=== PATIENT | female | born 1990 | race Caucasian/White ===

== ENCOUNTER 2020-01-18 15:19 | Emergency (ER) | payer MEDICAID, OTHER ==
--- OUTSIDE RECORDS SUMMARY | 2020-01-18 15:28 | XMS REPORT ---
Author Author [facility] Medic al Staff, TOMY Rashid Organization [facility] Address [address], [place] [address] Phone [phone] Care Team Providers Care Log Sorting Supervisor Name Role Phone ROCHELLE YORK, LENARD PP [phone] Summary purpose TRANSITION OF CARE AUTO GENERATION Chief Complaint and Reason for Visit Admit Diagnosis 1 WOUND INFECTION Problem list No authorized problems tracked for continuity of care are available for this vis it. Encounters No authorized problems tracked for encounter diagnoses are available for this vi sit. Medications No medications recorded for this patient visit Allergies, adverse reactions, alerts Allergen Category Ingredient Status Reaction Severity Onset Latex Drug Allergy Latex Confirmed or Verified Latex Environmental Allergy LATEX Confirmed or Verified azithromycin Drug Allergy azithromycin Confirmed or Verified itching azithromycin Drug Allergy azithromycin Confirmed or Verified redmess Bactrim Drug Allergy Bactrim Confirmed or Verified Shortness of Br eath Moderate Adult Bactrim Drug Allergy sulfamethoxazole Confirmed or Verified Shortn ess of Breath Moderate Adult Bactrim Drug Allergy trimethoprim Confirmed or Verified Shortness of Breath Moderate Adult Toradol Drug Allergy Toradol Confirmed or Verified Toradol Drug Allergy ketorolac Confirmed or Verified vancomycin Drug Allergy vancomycin Confirmed or Verified Hives Mod erate Adult Immunizations No immunizations recorded for this patient visit Relevant diagnostic tests and/or laboratory data No authorized results are available for this patient visit History of procedures No procedures recorded for this patient visit. Functional status Functional Status Finding Observation Time Hearing Prob Loc none :15 Vision Problems yes :15 Vision Correct Dev glasses :15 Ambulation Asst Dev none :15 Bathing Assistance none :15 Eating Assistance none :15 Dressing Assistance none :15 Toileting Assistance none :15 Transfer Assistance none :15 Decline Slf Care/Mob no :15 Phys Cond Stable yes :15 Oxygen no :09 Oxygen Flow Rate RA :09 IV Site Location Left wrist :34 IV Type peripheral :34 IV Site Information existing : IV Site Start Attmpt 3 times :55 IV Site Isael 20 :34 IV Site Appearance WNL : IV Site Color clear :34 IV Site Patent yes :34 Dressing Changed yes :55 Dressing Type occlusive :34 Nursing Note iv abxcompleted. pt amb off unit in good condition. sl left in place as pt has f/u with PCP in am Comment: This result is a modification to a previously-entered result. It was modified on 09/19/15 at 14:15 by ERMA. 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 ( Unknown if ever smoked.) Treatment Plan No treatment plan text is available for this visit. Hospital discharge instructions Valuables yes Valuable Type billfold/purse PNE Vac never Flu Vac 04/2015 Tetanus Vac 06/2013
--- OUTSIDE RECORDS SUMMARY | 2020-01-18 15:28 | XMS REPORT ---
Author Author [facility] Medic al Staff, TOMY Rashid Organization [facility] Address [address], [place] [address] Phone [phone] Care Team Providers Care Funeral Attendant Name Role Phone LYNSEY YORK, SILVANA PP [phone] Summary purpose TRANSITION OF CARE AUTO GENERATION Chief Complaint and Reason for Visit No authorized Reason for Visit (Admitting Diagnosis) is available for this visit . Problem list No authorized problems tracked for [...] or Verified vancomycin Drug Allergy vancomycin Confirmed but Inactive Hives Mo derate Adult tramadol Drug Allergy tramadol Confirmed or Verified Immunizations No immunizations recorded for this patient visit Relevant diagnostic tests and/or laboratory data RESULTS Chemistry [id number]:00 Result Normal Range Units Sodium 137 134-145 mEq/l Potassium 4.0 3.5-5.1 mEq/l Chloride 103 98-107 mEq/l CO2 23.2 22-28 mEq/l Glucose 93 70-105 mg/dl BUN 7 7-18 mg/dl Creatinine L 0.56 0.6-1.0 mg/dl Calcium 9.0 8.4-10.2 mg/dl Osmolality L 271.5 280-300 mOsm/L Anion GAP 10.8 8-16 BUN/Creatinine Ratio 12.5 10-20 Estimated GFR 132 >= 60 mL/min /1.7 Hematology :01:00 Result Normal Range Units WBC H 15.2 4.8-10.8 103/uL RBC H 5.5 4.2-5.4 106/uL HGB 15.9 12.0-16.0 g/dl HCT 46.5 36.9-47.0 % MCV 84.7 81-99 FL MCH 29.0 27-31 pg MCHC 34.2 33-37 g/dl RDW 12.8 11.5-15.5 % PLT 315 130-400 103/uL MPV 9.3 7.3-10.4 FL Neutro % H 76.3 40-70 % Lymph % L 17.2 20-40 % Rap[place] % 5.0 0-10.0 % Eos % 0.8 0-7.0 % Baso % 0.3 0-2 % Neutro # H 11.6 1.5-7.5 103/uL Lymph # 2.6 0.9-4.0 103/uL [place] # 0.8 0-0.8 103/uL Eos # 0.1 0-0.6 103/uL Baso # 0.1 0-0.1 103/uL Radiology Results :01:00 Result Normal Range Units MPV 9.3 7.3-10.4 FL History of procedures No procedures recorded for this patient visit. Functional status Functional Status Finding Observation Time Abdomen Appearance obese :25 Abdomen soft :25 Ramírez no :25 Urination normal :25 Quality sym/unlabored :25 Cough absent :25 Secretions no :25 Airway natural :25 Chest Tube no :25 Oxygen no :00 Temp >100.4 no :25 Temp <96.8 no :25 Chills with rigors no :25 HR > 90bpm yes :25 Respirations > 20 no :25 Systolic <90 no :25 headache stiff neck no :25 IV Site Location R AC :05 IV Type peripheral :05 IV Site Information new :05 IV Site Start Attmpt 1 times :05 IV Site Isael 20 :05 IV Site Appearance WNL :05 IV Site Color clear :05 IV Site Patent yes :05 Dressing Type occlusive :05 Nursing Note pt dc'd to home at this time in good condition and with all known belongings. pt exited ambulatory in care of sig other with rx in hand for oxycodone. outpt infusion orders given to OBS RN. : Vital signs Type Value Date Respiration Rate 20breaths per minute : 00 Pulse 103beats per minute :0 0 Oxygen Saturation 98% :00 BP Systolic 134mmHg :00 BP Diastolic 93mmHg :00 Temperature 98.1F :00 Social history Type Value Smoking Status CURRENT EVERY DAY SMOKER Treatment Plan No treatment plan text is available for this visit. Hospital discharge instructions Dismissal Condition good Disposition on DC home DC Inst/Educ Give yes Med/Side Effects Rev yes PNE Vac none Flu Vac 2014 Tetanus Vac 2012
--- OUTSIDE RECORDS SUMMARY | 2020-01-18 15:28 | XMS REPORT ---
Author Author [facility] Medic al Staff, TOMY Rashid Organization [facility] Address [address], [place] [address] Phone [phone] Care Team Providers Care Solar Manager Name Role Phone ROCHELLE YORK, LENARD PP [phone] LENARD BYRD MD, PP [phone] Summary purpose TRANSITION OF CARE AUTO GENERATION Chief Complaint and Reason for Visit Admit Diagnosis 1 WOUND INF Problem list No authorized problems tracked for continuity of care are available for this vis it. Encounters The following conditions tracked for encounter diagnoses were recorded for this visit: Finding or Diagnosis Status Certainty Chronicity Onset *WOUND; infection Active Medications No medications recorded for this patient [...] Relevant diagnostic tests and/or laboratory data RESULTS [id number]:00 Discharge Summary DISCHARGE SUMMARY HISTORY OF PRESENT ILLNESS:This 25-y ear-old female was in from the clinic with wound dehiscence following e xcision of cutaneous abscesses. The patient relates she has been having increasing pain at the incision sites. PHYSICAL EXAMINATION: GENERAL: Well-deve loped, well-nourished. VITAL SIGNS: Temperature 97.8, blood pressure 130/82, pulse 80 and oxygen saturation is 98% on room air. HEENT: Clear. LUNGS: Clear. HEART: Normal sinus rhythm . ABDOMEN: Soft and nontender. EXTREMITIES: Without edema. SKIN: Examin ation of the skin reveals bilateral proximal medial anterior thigh s which have dehisced. The areas are quite tender; no cellulitis. Incisio ns in the lower quadrants bilaterally under the pannus reveal the stitches are intact. There is mild erythema of the skin margins. No dr ainagraeme. The areas are quite tender. The anterior sternal area betwee n the breasts with surgical incision with sutures intact and no drai nage. There is significant tenderness noted without cellulitis. Ove r the sacral area, there is ulceration from previous pilonidal cyst removal. The area is tender with no drainage. 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 These areas were tender. No drainage. LABORATORY/X-RAY/ELECTROCARDIOGRAM DATA: A complete blood count on admission showed white count 10,100, hem oglobin 14.6. Followup complete blood count on the was unchanged. Chemistries on admission were normal except potassium was a little low at 3.4. Hemoglobin A1c was 5.0. On the , potassium had normalized to 3.8. Wound culture of the right anterior thigh which was performed in [facility] showed methicillin resistant Staphylococcus aureus. Wound c ulture from the pilonidal ulceration showed strep agalactiae and c ulture of the right posterior thigh showed a large amount of Staphyloc occus aureus; not methicillin resistant Staphylococcus aureus. Urinaly sis was clear. HOSPITAL COURSE: Following admission, [facility] patient was started on intravenous vancomycin. Approximately 15 minutes into the infusion, she developed a redness and urticaria and th e infusion was stopped. She was given Benadryl. The infusion was tried a gain the following morning with the same results after 5 minutes and onc e again the infusion was discontinued. Based upon culture results , since there is no evidence of significant cellulitis or deep infection noted, it was elected to continue the patient as an outpatient on intravenous Rocephin and with aggressive wound care and topical gentam icin ointment. FOLLOWUP: The patient will be seen in [facility] clinic in followup in 4 days, sooner if symptoms should change. DISCHARGE MEDICATIONS: She will be shashank nued on diclofenac 50 mg 3 times daily, gemfibrozil 600 mg 2 times daily, lidocaine topically as needed every 4 hours, and oxycodone 10 mg every 4 hours as needed for pain. DISCHARGE DIAGNOSES: Status post excisio n of cutaneous abscesses with secondary infection and wound dehiscence. MD JANAK Bonds/cdj09/21/2015 09:18:00/2015 18:23:46 Clinic [facility]: [facility] [address] [place] [id number] <END HEADER> [id number]:00 Progress Note PROGRESS NOTE 09/15/2015 09:46:43 DATE OF SERVICE: 09/14/15 S: Patient is doing a little better today. The pain seems to be a little bit better controlled with her pa in medications. Patient did develop itching and rash about 15 minute s after starting vancomycin infusion last night. Vancomycin was disc ontinued. She had been taking pain medication prior to this and seemed to tolerate that well. She has had vancomycin in the past with no docum ented reaction. The patient has had no recurrence of the rash overnight, itching has resolved. O: VITAL SIGNS: She is afebrile as o f 3:00. Temperature is 98.8, pulse 83, blood pressure 117/60, respirations 18, oxygen saturation 96% on room air. LUNGS: Clear. HEART: Normal si nus rhythm. Wounds appear unchanged this morning. LABORATORY: CBC on admission showed white count 10,100, hemoglobin 14.8. Differential sh owed 75 segs, 2 bands, 21 lymphs and 2 monos. Chemistries showed electrol ytes to be normal, except potassium was a little low at 3.4, estim ated GFR 129. Hemoglobin A1c 5.0. Wound culture from the clinic prior to admission of the right anterior thigh showing staph aureus, on preliminary report posterior thigh and abdominal cultures done here a re showing no growth this morning. A: Wound infection. P: Going to continue with IV Rocephi n and pain relief measures pending further identification of the staph flavio us. I have debated about whether to start IV clindamycin or try vancomyci n again. However, I think I am going to wait until we have sensitivitie s back. Those should be available tomorrow to give us some yury nce about antibiotic choices. MD JANAK Bonds/tx 09/15/2015 09:46:43/2015 14:28:14 [facility]: [facility] [address] [place] [address]<END HEADER> Routine Urinalysis [id number]:10:00 Result Normal Range Units Color YELLOW Clarity Clear Specific [place] 1.020 1.003-1.035 pH 6.5 4.5-8.0 Glucose NEGATIVE Bilirubin NEGATIVE Ketones NEGATIVE Protein NEGATIVE Urobilinogen 0.2 0-0.2 E.U./dL Nitrites NEGATIVE Blood NEGATIVE Leukocytes NEGATIVE WBCs No WBC's Seen RBCs 0-5 Squamous Epithelial Few Bacteria 1+ Routine Cultures [id number]:10:00 Wound Culture Plate Date and Time 09/13/2015 23:10 Source [facility] CULTURE REPORT Moderate Amount Group-B Strep. Sensitivity to follow Release Date/Time: 0 09/15/2015 08:16 GRAM STAIN 2+ Gram Positive Cocci Occasional Gram Variable Rods Release Date/Time: 0 09/14/2015 07:46 ORGID #1: Moderate Amount STREPTOCOCCUS AGALACTIAE - (GROUP B) Release Date/Time: 0 09/16/2015 08:19 Sensitivity #1: STRAGA AMPICILLIN 0.12S AZITHROMYCIN > 2 R CEFTRIAXONE <= 0.25 S CLINDAMYCIN > 0.5 R CEFOTAXIME <= 0.25 S CEFEPIME <= 0.25 S LEVOFLOXACIN 1 S PENICILLIN 0.06S TETRACYCLINE > 4 R VANCOMYCIN 0.5 S Wound Culture Plate Date and Time 09/13/2015 23:10 Source[facility] CULTURE REPORT Large Amount Staphylococcus Aureus. Sensitivity to follow Release Date/Time: 0 09/15/2015 07:08 GRAM STAIN Occasional Gram Positive Cocci Release Date/Time: 0 09/14/2015 07:47 ORGID #1: Large Amount STAPHYLOCOCCUS AUREUS Release Date/Time: 0 09/16/2015 07:24 Sensitivity #1: STAAUR AMPICILLIN > 8 R AMOX CLAV <=4/2 S CLINDAMYCIN <= 0.5R CEFAZOLIN <= 4S CIPROFLOXACIN <= 1S DAPTOMYCIN 1 S GENTAMICIN <= 4S AMPICILLIN SULBACTAM <=8 /4 S LEVOFLOXACIN <= 1S LINEZOLID 4 S MOXIFLOXACIN <= 0.5S OXACILLIN 0.5 S PENICILLIN > 8 R RIFAMPIN <= 1S TRIMETHSULFA <=0.5/9.5 S TETRACYCLINE <= 4S VANCOMYCIN 2 S Chemistry :35:00 Result Normal Range Units Sodium 138 134-145 mEq/l Potassium 3.8 3.5-5.1 mEq/l Chloride 104 98-107 mEq/l CO2 25.1 22-28 mEq/l Glucose 96 70-105 mg/dl BUN L 4 7-18 mg/dl Creatinine L 0.55 0.6-1.0 mg/dl Calcium L 8.0 8.4-10.2 mg/dl Osmolality L 272.4 280-300 mOsm/L Anion GAP 8.9 8-16 BUN/Creatinine Ratio L 7.3 10-20 Estimated GFR 135 >= 60 mL/min /1.7 [id number]:11:00 Result Normal Range Units Sodium 138 134-145 mEq/l Potassium L 3.4 3.5-5.1 mEq/l Chloride 104 98-107 mEq/l CO2 H 28.4 22-28 mEq/l Glucose 99 70-105 mg/dl BUN 7 7-18 mg/dl Creatinine L 0.57 0.6-1.0 mg/dl Calcium 8.7 8.4-10.2 mg/dl TP - Total Protein 7.3 6.0-8.3 g /dl Albumin 3.7 3.5-5 g/dl Bilirubin - Total 0.2 0.1-1.0 mg /dl AST 16 10-42 IU/L ALT 40 12-65 IU/L ALP 67 25-72 IU/L Osmolality L 273.7 280-300 mOsm/L Albumin/Globulin Ratio 1.0 0-8 Anion GAP L 5.6 8-16 BUN/Creatinine Ratio 12.3 10-20 Estimated GFR 129 >= 60 mL/min /1.7 Hematology :35:00 Result Normal Range Units WBC 7.4 4.8-10.8 103/uL RBC 4.8 4.2-5.4 106/uL HGB 13.6 12.0-16.0 g/dl HCT 40.6 36.9-47.0 % MCV 85.1 81-99 FL MCH 28.5 27-31 pg MCHC 33.5 33-37 g/dl RDW 12.1 11.5-15.5 % PLT 244 130-400 103/uL MPV 9.3 7.3-10.4 FL :11:00 Result Normal Range Units WBC 10.1 4.8-10.8 103/uL RBC 5.2 4.2-5.4 106/uL HGB 14.8 12.0-16.0 g/dl HCT 44.3 36.9-47.0 % MCV 85.9 81-99 FL MCH 28.7 27-31 pg MCHC 33.4 33-37 g/dl RDW 12.3 11.5-15.5 % PLT 281 130-400 103/uL MPV 9.2 7.3-10.4 FL Segs H 75.0 40-70 % Bands 2.0 0-5 % Lymphs 21.0 20-40 % [place] 2.0 0-10 % Special Chemistry :11:00 Result Normal Range Units Hemoglobin A1C 5.0 4.5-6.2 % Body Fluid :10:00 Result Normal Range Units pH 6.5 4.5-8.0 Radiology Results :35:00 Result Normal Range Units MPV 9.3 7.3-10.4 FL :11:00 Result Normal Range Units MPV 9.2 7.3-10.4 FL History of procedures No procedures recorded for this patient visit. Functional status Functional Status Finding Observation Time Hearing Prob Loc none :24 Vision Problems yes :24 Vision Correct Dev glasses :24 Ambulation Asst Dev none :24 Range of Motion full :45 Muscle Strength RUE 5 ROM full resist :45 Muscle Strength RLE 5 ROM full resist :45 Muscle Strength LUE 5 ROM full resist :45 Muscle Strength LLE 5 ROM full resist :45 Transfers independent :45 Ambulation up ad hernandez :45 Balance steady :45 Bathing Assistance none :24 Eating Assistance none :24 Dressing Assistance none :24 Toileting Assistance none :24 Transfer Assistance none :24 Decline Slf Care/Mob no :24 Phys Cond Stable yes :24 Nutrition normal 67-33-408642:45 Diet regular 40-43-272347:45 Oral Cavity moist and intact :45 Teeth none 16-32-726549:45 Dental Hygiene poor 26-55-850005:45 Abdomen Appearance obese 58-97-751708:45 Abdomen soft 89-11-385807:45 Bowel Sounds present :45 NG Tube no :45 Feeding Tube none :45 Ramírez no :45 Cont Bladder Irr no :45 Ostomy no :45 Stool Comment: none noted :37 Urination normal 64-15-783889:45 Urine Clarity clear [id number]:45 Urine Color straw 65-21-149161:45 Quality sym/unlabored :45 Cough absent :45 Secretions no :45 Breath Sounds RUL clear :45 Breath Sounds RML clear :45 Breath Sounds RLL clear :45 Breath Sounds SARA clear :45 Breath Sounds LLL clear [id number]:45 Airway natural :45 Chest Tube no [id number]:45 Oxygen no :45 Oxygen Flow Rate ra :37 C-PAP no :45 BI-PAP no :45 New Infection wound infection :45 Temp >100.4 no :45 Temp <96.8 no :45 Chills with rigors no :45 HR > 90bpm no :45 Respirations > 20 no [id number]:45 Systolic <90 no :45 headache stiff neck no :45 WBC > 95291 no : WBC < 4000 no :45 IV Site Location RAC :45 IV Type peripheral :45 IV Site Information existing : IV Site Start Attmpt 1 times : IV Site Isael 20 :45 IV Site Appearance WNL :45 IV Site Color clear : IV Site Patent yes : Dressing Changed yes : Dressing Type occlusive :45 Nursing Note pt. states that she is hurti ng today and has a appointment with today. pt. also states that when she was in the hospital this time Ashlyn took GREAT care of her and was very tentative when pt. had a anaphylactic reaction to vanc. :12 Cognitive Status Finding Observation Time Oriented To Date 5 Yes :[address] 5 Yes :24 Name 3 Objects 3 Yes :24 Name Object in Rm 2 Yes :24 Recall 3 Objects 3 Yes :24 Repeats a Phrase 1 Yes :24 Follows Verbal Direc 3 Yes :24 Follows Written Dire 1 Yes :24 Write a Sentance 1 Yes :24 Draw an Object 1 Yes :24 Mini Mental Total 25 points :24 Less than 20 Phys no (explain) :24 Learning Ability comprehends well :15 Neurological no :15 Psychological no :15 Physical no :15 Hearing no :15 Rotary Surface Grinder Needed no :15 Sign Language no :15 Emotional no :15 Vision no [id number]:15 Laguage no 24-44-963650:15 Financial no 66-21-962914:15 Vital signs Type Value Date Respiration Rate 18breaths per minute : 45 Pulse 83beats per minute :45 Oxygen Saturation 96% :45 BP Systolic 131mmHg :45 BP Diastolic 80mmHg :45 Temperature 98.3F :45 Height 63inches :19 Weight 240LB :19 Social history Type Value Smoking Status CURRENT EVERY DAY SMOKER Treatment Plan No treatment plan text is available for this visit. Hospital discharge instructions Discharge Date/Time 09/15/15 1330 Accompanied By Ebony Carrillo other (explain) Comment: grandmother Dismissal Condition good Disposition on DC home Valuables no Valuable Type jewelry (describe) Comment: purse, cell phone DC Inst/Educ Give yes Exit Care Educ Given yes Med/Side Effects Rev yes PNE Vac never Flu Vac 04/2015 Tetanus Vac 06/2013 Diet Explained yes Follow up appt already scheduled Follow Up Appt D/T 09/20/15 2:30pm
--- OUTSIDE RECORDS SUMMARY | 2020-01-18 15:28 | XMS REPORT ---
Author Author [facility] Medic al Staff, TOMY Rashid Organization [facility] Address [address], [place] [address] Phone [phone] Care Team Providers Care Ingot Passer Name Role Phone ROCHELLE YORK, LENARD PP [phone] Summary purpose TRANSITION OF CARE AUTO GENERATION [...] for this patient visit History of procedures Procedure Code Code Type Description Date Performed Performing Physician [id number] CPT-4 EMERGENCY DEPT VISIT 10-18-2015 SILVANA MERAZ [id number] CPT-4 EMERGENCY DEPT VISIT 10-18-2015 SILVANA MERAZ Functional status Functional Status Finding Observation Time Abdomen Appearance obese :45 Abdomen soft 42-64-867248:45 Ramírez no :45 Urination normal 99-66-810610:45 Quality sym/unlabored :45 Cough absent :45 Secretions no :45 Airway natural :45 Chest Tube no :45 Oxygen no :15 Temp >100.4 no :45 Temp <96.8 no :45 Chills with rigors no :45 HR > 90bpm yes :45 Respirations > 20 no :45 Systolic <90 no :45 headache stiff neck no :45 Nursing Note Discharge instructions revie wed with pt-verbalized understanding. VS obtained-dc in good condition and ambulatory. :15 Vital signs Type Value Date Respiration Rate 18breaths per minute : 15 Pulse 116beats per minute :1 5 Oxygen Saturation 100% :15 BP Systolic 130mmHg :15 BP Diastolic 78mmHg :15 Temperature 98F :15 Social history Type Value Smoking Status CURRENT EVERY DAY SMOKER Treatment Plan No treatment plan text is available for this visit. Hospital discharge instructions Dismissal Condition good Disposition on DC home DC Inst/Educ Give yes Med/Side Effects Rev yes PNE Vac none Flu Vac 2014 Tetanus Vac 2012
--- OUTSIDE RECORDS SUMMARY | 2020-01-18 15:28 | XMS REPORT ---
Author Author [facility] Medic al Staff, TOMY Rashid Organization [facility] Address [address], [place] [address] Phone [phone] Summary purpose TRANSITION OF CARE AUTO GENERATION [...] Toradol Drug Allergy ketorolac Confirmed or Verified Immunizations No immunizations recorded for this patient visit Relevant diagnostic tests and/or laboratory data No authorized results are available for this patient visit History of procedures No procedures recorded for this patient visit. Functional status Functional Status Finding Observation Time Diet regular :15 Abdomen Appearance obese :15 Abdomen soft :15 Ramírez no :15 Urination normal :15 Quality sym/unlabored :15 Cough absent :15 Secretions no :15 Airway natural :15 Chest Tube no :15 Oxygen no :50 Temp >100.4 no :15 Temp <96.8 no :15 Chills with rigors no :15 HR > 90bpm no :15 Respirations > 20 no :15 Systolic <90 no :15 headache stiff neck no :15 Rapid Resp no :07 Nursing Note Pt is discharged to home in good condition. Medication education on zofran et hydro given. Pt denies any questions with home pack of hydro in hand. Pt ambulated out to car. :50 Vital signs Type Value Date Respiration Rate 18breaths per minute : 50 Pulse 80beats per minute :50 Oxygen Saturation 99% :50 BP Systolic 144mmHg :50 BP Diastolic 75mmHg :50 Temperature 97F :50 Height 63inches :50 Weight 230.4LB 39-97-011565:50 Social history Type Value Smoking Status CURRENT EVERY DAY SMOKER Treatment Plan No treatment plan text is available for this visit. Hospital discharge instructions Dismissal Condition good Disposition on DC home DC Inst/Educ Give yes Med/Side Effects Rev yes PNE Vac none Flu Vac 2014 Tetanus Vac current
--- OUTSIDE RECORDS SUMMARY | 2020-01-18 15:29 | XMS REPORT ---
Author Author [facility] Medic al Staff, TOMY Rashid Organization [facility] Address [address], [place] [address] Phone [phone] Care Team Providers Care Business Unit Controller Name Role Phone SILVANA MENON MD PP [phone] Summary purpose TRANSITION OF CARE AUTO GENERATION [...] diagnostic tests and/or laboratory data RESULTS Chemistry [id number]:20:00 Result Normal Range Units Sodium 141 134-145 mEq/l Potassium 3.9 3.5-5.1 mEq/l Chloride 101 98-107 mEq/l CO2 H 30.9 22-28 mEq/l Glucose 75 70-105 mg/dl BUN 12 7-18 mg/dl Creatinine 0.65 0.6-1.0 mg/dl Calcium 8.8 8.4-10.2 mg/dl TP - Total Protein 7.9 6.0-8.3 g /dl Albumin 4.0 3.5-5 g/dl Bilirubin - Total 0.2 0.1-1.0 mg /dl AST 20 10-42 IU/L ALT H 69 12-65 IU/L ALP 62 25-72 IU/L Osmolality L 279.7 280-300 mOsm/L Albumin/Globulin Ratio 1.0 0-8 Anion GAP 9.1 8-16 BUN/Creatinine Ratio 18.5 10-20 Estimated GFR 111 >= 60 mL/min /1.7 C-Reactive Protein < 0.2 0-1 m g/dl Hematology :20:00 Result Normal Range Units WBC H 17.8 4.8-10.8 103/uL RBC H 5.5 4.2-5.4 106/uL HGB 16.0 12.0-16.0 g/dl HCT H 47.1 36.9-47.0 % MCV 86.4 81-99 FL MCH 29.4 27-31 pg MCHC 34.0 33-37 g/dl RDW 13.1 11.5-15.5 % PLT 369 130-400 103/uL MPV 9.0 7.3-10.4 FL Neutro % H 70.5 40-70 % Lymph % 20.9 20-40 % Cooper % 6.8 0-10.0 % Eos % 1.0 0-7.0 % Baso % 0.1 0-2 % Neutro # H 12.5 1.5-7.5 103/uL Lymph # 3.7 0.9-4.0 103/uL Cooper # H 1.2 0-0.8 103/uL Eos # 0.2 0-0.6 103/uL Baso # 0.0 0-0.1 103/uL Radiology Results :20:00 Result Normal Range Units MPV 9.0 7.3-10.4 FL History of procedures No procedures recorded for this patient visit. Functional status Functional Status Finding Observation Time Muscle Strength RLE 4 ROM slight resist :15 Abdomen Appearance obese :15 Abdomen non-tender :15 Ramírez no :15 Urination normal :15 Quality sym/unlabored :15 Cough absent :15 Secretions no :15 Airway natural :15 Chest Tube no :15 Oxygen no :45 Oxygen Flow Rate RA :57 Temp >100.4 no :15 Temp <96.8 no :15 Chills with rigors no : HR > 90bpm no :15 Respirations > 20 no :15 Systolic <90 no :15 headache stiff neck no :15 Nursing Note DC instructions given to pt, voiced understanding. RX in hand x2. Hydrocodone HP given to pt. VS assessed. Pt ambulated with crutches off unit, escorted to registration desk and departed from there. :47 Vital signs Type Value Date Respiration Rate 18breaths per minute : 45 Pulse 85beats per minute :45 Oxygen Saturation 95% :45 BP Systolic 153mmHg :45 BP Diastolic 85mmHg :45 Temperature 97.1F :45 Social history Type Value Smoking Status CURRENT EVERY DAY SMOKER Treatment Plan No treatment plan text is available for this visit. Hospital discharge instructions Dismissal Condition fair Disposition on DC home DC Inst/Educ Give yes Med/Side Effects Rev yes PNE Vac none Flu Vac 2014 Tetanus Vac 2012
--- OUTSIDE RECORDS SUMMARY | 2020-01-18 15:29 | XMS REPORT ---
Author Author [facility] Medic al Staff, TOMY Rashid Organization [facility] Address [address] [place], [place] [address] Phone [phone] Summary purpose TRANSITION OF CARE AUTO GENERATION [...] or Verified Shortness of Breath Moderate Adult Immunizations No immunizations recorded for this patient visit Relevant diagnostic tests and/or laboratory data RESULTS Radiology Results [id number]:50:00 LUMBAR SPINE XRAY - 3V PACs Image DATE OF EXAM: Feb 26 2015 RAD 1035-LUMBAR SPINE XRAY-3 VIEW : RADIOLOGY REPORT DATE OF SERVICE: 02/26/15 HISTORY: Patient has lumbago. LUMBAR SPINE 3 VIEWS 1054 HOURS There is mild scoliosis of lumbar spine, convex left in the upper aspect. Flexion and extension lateral vi ews were performed with normal alignment of vertebrae and no abnormal m otion of vertebrae. Interspaces are normal. No fractures are seen. SI cami ints are maintained. IMPRESSION: Minimal scoliosis. Otherwise normal study. DO FABRIZIO Van/darien 02/26/2015 11:31:00 / 08/07/2014 11:38:51 cc:Dr. Jayesh Townsend This document has been electronically Signed by: On: DATE OF EXAM: Feb 26 2015 RAD 1035-LUMBAR SPINE XRAY-3 VIEW : RADIOLOGY REPORT DATE OF SERVICE: 02/26/15 HISTORY: Patient has lumbago. LUMBAR SPINE 3 VIEWS 1054 HOURS There is mild scoliosis of lumbar spine, convex left in the upper aspect. Flexion and extension lateral vi ews were performed with normal alignment of vertebrae and no abnormal m otion of vertebrae. Interspaces are normal. No fractures are seen. SI cami ints are maintained. IMPRESSION: Minimal scoliosis. Otherwise normal study. Radha Galvan DO [facility] 02/26/2015 11:31:02/07 11:38:51 cc:Dr. Jayesh Townsend This document has been electronically Signed by: RADHA GALVAN DO On: Feb 26 20151:50P Result Amended on 2015-02-26 at 13:50:13 . Previous status was HI. PELVIS XRAY - 1 VIEW PACs Image DATE OF EXAM: Feb 26 2015 RAD 1225-PELVIS XRAY-1 VIEW : RADIOLOGY REPORT DATE OF SERVICE: 02/26/15 HISTORY: Patient has lumbago. [id number] HOURS Bony pelvis is intact. Sacroiliac joints and hip joint spaces are maintained. There are metal clips in the pelvis. Soft tissues are normal. IMPRESSION: Negative study. Radha Galvan DO [facility] 02/26/2015 11:31:02/07 11:39:50 cc:Dr. Jayesh Townsend This document has been electronically Signed by: On: DATE OF EXAM: Feb 26 2015 RAD 1225-PELVIS XRAY-1 VIEW : RADIOLOGY REPORT DATE OF SERVICE: 02/26/15 HISTORY: Patient has lumbago. [id number] HOURS Bony pelvis is intact. Sacroiliac joints and hip joint spaces are maintained. There are metal clips in the pelvis. Soft tissues are normal. IMPRESSION: Negative study. Radha Galvan DO [facility] 02/26/2015 11:31:02/07 11:39:50 cc:Dr. Jayesh Townsend This document has been electronically Signed by: RADHA GALVAN DO On: Feb 26 20151:50P Result Amended on 2015-02-26 at 13:50:19 . Previous status was HI. History of procedures No procedures recorded for this patient visit. Functional status No functional or cognitive status observations are available for this visit. Vital signs No authorized vital signs are available for this visit. Social history No Social History or smoking status observations were recorded for this visit. ( Unknown if ever smoked.) Treatment Plan No treatment plan text is available for this visit. Hospital discharge instructions No discharge instruction text is available for this visit.
--- OUTSIDE RECORDS SUMMARY | 2020-01-18 15:29 | XMS REPORT ---
Author Author [facility] Medic al Staff, TOMY Rashid Organization [facility] Address [address], [place] [address] Phone [phone] Care Team Providers Care Milling Machine Operator Gear Name Role Phone CAROLEE WHITE MD PP [phone] CAROLEE WHITE MD PP [phone] Summary purpose TRANSITION OF CARE AUTO GENERATION Chief Complaint and Reason for Visit Admit Diagnosis 1 E/O HIDRADENITIS Problem list No authorized problems tracked for continuity of care are available for this vis it. Encounters No authorized problems tracked for encounter diagnoses are available for this vi sit. Medications Home Medications Medication Directions Started Status Source albuterol 90 mcg/actuation aerosol inhaler 1 puff inhl As Needed for asthma Current Patient recall Xanax 0.5 mg tablet 1 tablet oral As Needed for anxiety Current Patient medication list Fioricet 50 mg-325 mg-40 mg tablet 1 tablet oral As Needed for pain Current Patient medication list Allergies, adverse reactions, alerts Allergen Category Ingredient [...] Functional status Functional Status Finding Observation Time Vision Problems yes :52 Vision Correct Dev glasses :52 Ambulation Asst Dev none :52 Range of Motion full :35 Muscle Strength RUE 5 ROM full resist :35 Muscle Strength RLE 5 ROM full resist :35 Muscle Strength LUE 5 ROM full resist :35 Muscle Strength LLE 5 ROM full resist :35 Transfers assist x 1 :35 Ambulation in room :35 Balance unsteady :35 Bathing Assistance none :52 Eating Assistance none :52 Dressing Assistance none :52 Toileting Assistance none :52 Transfer Assistance none :52 Decline Slf Care/Mob no :52 Phys Cond Stable yes :52 Nutrition normal :35 Diet regular :35 Oral Cavity moist and intact :35 Teeth none :35 Dental Hygiene good :35 Abdomen Appearance obese :35 Abdomen soft :35 Bowel Sounds present :35 NG Tube no :35 Feeding Tube none :35 Ramírez no :35 Cont Bladder Irr no :35 Ostomy no :35 Stool normal Comment: per pt :26 Urination other (specify) Comment: some leakage per pt :26 Quality sym/unlabored :35 Cough absent :35 Secretions no :35 Breath Sounds RUL clear :35 Breath Sounds RML clear :35 Breath Sounds RLL clear :35 Breath Sounds SARA clear :35 Breath Sounds LLL clear :35 Airway natural :35 Chest Tube no :35 Oxygen no :05 C-PAP no :35 BI-PAP no :35 Temp >100.4 no :35 Temp <96.8 no :35 Chills with rigors no :35 HR > 90bpm no :35 Respirations > 20 no :35 Systolic <90 no :35 headache stiff neck no :35 Rapid Resp no :35 IV Site Location Rt ac 86-76-056931:15 IV Type peripheral 16-21-258725:15 IV Site Information discontinued 21-68-384474:15 IV Site Start Attmpt 2 times 73-45-723744:20 IV Site Isael 20 87-54-398041:15 IV Site Appearance WNL 60-25-109415:15 IV Site Color clear :15 IV Site Patent yes :15 Dressing Type occlusive :15 Nursing Note Pt states she's "pretty sore but other t herrera that I'm doing okay" . 95-61-653014:17 Cognitive Status Finding Observation Time Learning Ability comprehends well 00-56-699065:20 Neurological no 22-67-463170:20 Psychological no 36-71-899442:20 Physical no 63-68-565241:20 Hearing no 95-11-965560:20 Mail Room Clerk Needed no 54-81-686373:20 Sign Language no 06-02-947078:20 Emotional no 45-30-975997:20 Vision yes 68-24-172287:20 Laguage no 69-06-610027:20 Financial no 62-67-118377:20 Vital signs Type Value Date Respiration Rate 16breaths per minute 57-26-705544: 05 Pulse 80beats per minute 06-83-591713:05 Oxygen Saturation 98% 86-87-562128:05 BP Systolic 156mmHg 01-03-098754:05 BP Diastolic 95mmHg 81-22-139505:05 Temperature 98.4F 60-65-561850:35 Height 67inches :49 Weight 230LB 46-68-701348:49 Social history Type Value Smoking Status CURRENT EVERY DAY SMOKER Treatment Plan No treatment plan text is available for this visit. Hospital discharge instructions Discharge Date/Time 09/29/14 1225 Accompanied By natalee Relationship friend Dismissal Condition good Disposition on DC home Valuables yes Valuable Type billfold/purse DC Inst/Educ Give yes Exit Care Educ Given yes Med/Side Effects Rev yes PNE Vac never Flu Vac 04/2014 Tetanus Vac 06/2013 Diet Explained yes Follow up appt appt made (specify) Follow Up Appt D/T 10/13/14 4282
--- OUTSIDE RECORDS SUMMARY | 2020-01-18 15:29 | XMS REPORT ---
Author Author [facility] Medic al Staff, TOMY Rashid Organization [facility] Address [address], [place] [address] Phone [phone] Care Team Providers Care International Account Manager Name Role Phone ROCHELLE YORK, LENARD PP [phone] Summary purpose TRANSITION OF CARE AUTO GENERATION [...] Code Type Description Date Performed Performing Physician 84901 CPT-4 THER/PROPH/DIAG IV INF INIT 09-16-2015 LENARD BYRD 51209 CPT-4 THER/PROPH/DIAG IV INF INIT 09-17-2015 LENARD BYRD 82827 CPT-4 THER/PROPH/DIAG IV INF INIT 09-18-2015 LENARD BYRD 39776 CPT-4 THER/PROPH/DIAG IV INF INIT 09-19-2015 LENARD BYRD J0696 CPT-4 CEFTRIAXONE SODIUM INJECTION 09-16-2015 LENARD BYRD J0696 CPT-4 CEFTRIAXONE SODIUM INJECTION 09-17-2015 LENARD BYRD J0696 CPT-4 CEFTRIAXONE SODIUM INJECTION 09-18-2015 LENARD BYRD J0696 CPT-4 CEFTRIAXONE SODIUM INJECTION 09-19-2015 LENARD BYRD J3370 CPT-4 VANCOMYCIN HCL INJECTION 09-25-2015 V MOY BYRD J3370 CPT-4 VANCOMYCIN HCL INJECTION 09-26-2015 V MOY BYRD J3370 CPT-4 VANCOMYCIN HCL INJECTION 09-27-2015 V MOY BYRD J7040 CPT-4 NORMAL SALINE SOLUTION INFUS 09-25-2015 LENARD BYRD J7040 CPT-4 NORMAL SALINE SOLUTION INFUS 09-26-2015 LENARD BYRD J7040 CPT-4 NORMAL SALINE SOLUTION INFUS 09-27-2015 LENARD NOYOLAHAM Functional status Functional Status Finding Observation Time Hearing Prob Loc none 67-54-541424:15 Vision Problems yes :15 Vision Correct Dev glasses 35-20-497226:15 Ambulation Asst Dev none 73-17-119156:15 Bathing Assistance none 18-77-476644:15 Eating Assistance none 05-56-711642:15 Dressing Assistance none 92-85-457609:15 Toileting Assistance none 50-53-103432:15 Transfer Assistance none 35-15-538484:15 Decline Slf Care/Mob no :15 Phys Cond Stable yes :15 Oxygen no :09 Oxygen Flow Rate RA :09 IV Site Location Left wrist :34 IV Type peripheral :34 IV Site Information existing :34 IV Site Start Attmpt 3 times :55 IV Site Isael 20 :34 IV Site Appearance WNL :34 IV Site Color clear :34 IV Site [...] Yes :15 Write a Sentance 1 Yes : Draw an Object 1 Yes :15 Mini Mental Total 25 points :15 Less than 20 Phys no (explain) :15 Learning Ability comprehends well :15 Neurological no :15 Psychological no :15 Physical no :15 Hearing no :15 Teleprinter Installer Needed no :15 Sign Language no :15 Emotional no :15 Vision no :15 Laguage no :15 Financial no :15 Vital signs Type Value Date Respiration Rate 18breaths per minute : 09 Pulse 83beats per minute :09 Oxygen Saturation 98% :09 BP Systolic 139mmHg [...]
--- OUTSIDE RECORDS SUMMARY | 2020-01-18 15:29 | XMS REPORT ---
Author Author [facility] Medic al Staff, TOMY Rashid Organization [facility] Address [address], [place] [address] Phone [phone] Care Team Providers Care [place] Ordinary Name Role Phone CAROLEE WHITE MD PP [phone] ACROLEE WHITE MD PP [phone] Summary purpose TRANSITION OF CARE AUTO GENERATION Chief Complaint and Reason for Visit Admit Diagnosis 1 I&D HYDRANTISITS LEFT SIDE X 2 Problem list No authorized problems tracked for [...] Finding Observation Time Hearing Prob Loc none 24-57-229435:41 Vision Problems yes 54-79-606646:41 Vision Correct Dev glasses 59-41-090942:41 Ambulation Asst Dev none :41 Range of Motion full :10 Muscle Strength RUE 5 ROM full resist 25-30-646010:10 Muscle Strength RLE 5 ROM full resist 01-52-311876:10 Muscle Strength LUE 5 ROM full resist 00-41-946943:10 Muscle Strength LLE 5 ROM full resist 94-29-125736:10 Transfers assist x 1 26-34-429658:10 Ambulation in room 21-68-755609:10 Balance steady 47-15-296239:10 Bathing Assistance none :41 Eating Assistance none :41 Dressing Assistance none :41 Toileting Assistance none :41 Transfer Assistance none :41 Decline Slf Care/Mob no :41 Phys Cond Stable yes :41 Nutrition normal :10 Diet regular 48-42-923124:10 Oral Cavity moist and intact :10 Teeth dentures :10 Dental Hygiene good 24-79-487816:10 Abdomen Appearance obese :10 Abdomen soft :10 Bowel Sounds present :10 NG Tube no :10 Feeding Tube none :10 Ramírez no :10 Cont Bladder Irr no 32-04-726746:10 Ostomy no :10 Stool normal 60-19-059891:10 Urination normal 75-36-556724:10 Quality sym/unlabored :10 Cough absent :10 Secretions no :10 Breath Sounds RUL clear :10 Breath Sounds RML clear :10 Breath Sounds RLL clear :10 Breath Sounds SARA clear :10 Breath Sounds LLL clear 39-69-327192:10 Airway natural :10 Chest Tube no :10 Oxygen no 43-24-739117:00 C-PAP no 40-31-425286:10 BI-PAP no :10 Temp >100.4 no :10 Temp <96.8 no :10 Chills with rigors no :10 HR > 90bpm no :10 Respirations > 20 no 48-97-245988:10 Systolic <90 no :10 headache stiff neck no :10 Rapid Resp no :10 IV Site Location L AC 26-81-703461:05 IV Type peripheral 98-33-991497:05 IV Site Information discontinued 51-07-793797:05 IV Site Isael 20 14-64-219966:10 IV Site Appearance WNL :10 IV Site Color clear :10 IV Site Patent yes :10 Dressing Type occlusive :10 Nursing Note Discharge instr provided, pt verb understanding. IV dc'd. Pt dc'd to home in stable condition ambulatory with in personal vehical. Belongings intact. :10 Cognitive Status Finding Observation Time Learning Ability comprehends well :10 Neurological no 90-65-841319:10 Psychological no 46-63-261431:10 Physical no 53-06-364044:10 Hearing no :10 Attending Physician Needed no 57-88-620256:10 Sign Language no :10 Emotional no :10 Vision yes 31-73-266887:10 Laguage no 22-75-730928:10 Financial no :10 Vital signs Type Value Date Respiration Rate 18breaths per minute 03-26-836247: 00 Pulse 79beats per minute :00 Oxygen Saturation 99% 48-36-067897:00 BP Systolic 147mmHg 83-09-449686:00 BP Diastolic 101mmHg 22-16-616487:00 Temperature 97.4F 50-11-925413:06 Height 63inches 61-64-045612:40 Weight 225LB 45-55-538498:40 Social history Type Value Smoking Status CURRENT EVERY DAY SMOKER Treatment Plan No treatment plan text is available for this visit. Hospital discharge instructions Discharge Date/Time 12/23/14 1445 Accompanied By Relationship spouse/signif other Dismissal Condition good Disposition on DC home Valuables yes Valuable Type cell phone Valuables Returned T patient DC Inst/Educ Give yes Exit Care Educ Given yes PNE Vac never Flu Vac 04/2014 Tetanus Vac 06/2013 Diet Explained yes Follow up appt appt made (specify) Follow Up Appt D/T 01/05/15 9605
--- OUTSIDE RECORDS SUMMARY | 2020-01-18 15:29 | XMS REPORT ---
Author Author [facility] Medic al Staff, TOMY Rashid Organization [facility] Address [address] [place], [place] [address] Phone [phone] Care Team Providers Care Band Booker Name Role Phone CHRISTOPHER YORK, CAROLEE PP [phone] Summary purpose TRANSITION OF CARE AUTO GENERATION Chief Complaint and Reason for Visit Admit Diagnosis 1 HIDRADENITIS Problem list No authorized problems tracked [...] Relevant diagnostic tests and/or laboratory data RESULTS Therapeutic Drug Monitoring 83-14-646425:15:00 Result Normal Range Units Vancomycin Trough L 6.2 10-22 ug /ml 12-57-198157:25:00 Result Normal Range Units Vancomycin Trough L 3.6 10-22 ug /ml 43-59-987552:30:00 Result Normal Range Units Vancomycin Trough L 2.8 10-22 ug /ml Chemistry 66-33-637158:13:00 Result Normal Range Units BUN L 5 7-18 mg/dl Creatinine 0.69 0.6-1.0 mg/dl Estimated GFR 105 >= 60 mL/min /1.7 History of procedures Procedure Code Code Type Description Date Performed Performing Physician 89552 CPT-4 ASSAY OF UREA NITROGEN 12-17-2014 MARCO GARZA 44169 CPT-4 ASSAY OF CREATININE 12-17-2014 CATY GARZA J7040 CPT-4 NORMAL SALINE SOLUTION INFUS 12-17-2014 CATY GARZA J3370 CPT-4 VANCOMYCIN HCL INJECTION 12-17-2014 Margo GARZA 40126 CPT-4 ROUTINE VENIPUNCTURE 12-17-2014 STAN WHITE 40072 CPT-4 ASSAY OF VANCOMYCIN 12-18-2014 CATY GARZA J7040 CPT-4 NORMAL SALINE SOLUTION INFUS 12-18-2014 CATY GARZA J3370 CPT-4 VANCOMYCIN HCL INJECTION 12-18-2014 Margo GARZA J7040 CPT-4 NORMAL SALINE SOLUTION INFUS 12-18-2014 CATY GARZA J3370 CPT-4 VANCOMYCIN HCL INJECTION 12-18-2014 Margo GARZA J2405 CPT-4 ONDANSETRON HCL INJECTION 12-18-2014 CAROLEE WHITE J3370 CPT-4 VANCOMYCIN HCL INJECTION 12-18-2014 Margo GARZA 79751 CPT-4 ROUTINE VENIPUNCTURE 12-18-2014 CATY GARZA J2405 CPT-4 ONDANSETRON HCL INJECTION 12-18-2014 ЮЛИЯ FANG J7040 CPT-4 NORMAL SALINE SOLUTION INFUS 12-19-2014 CATY GARZA J3370 CPT-4 VANCOMYCIN HCL INJECTION 12-19-2014 Margo GARZA 27805 CPT-4 ASSAY OF VANCOMYCIN 12-20-2014 CATY GARZA J2405 CPT-4 ONDANSETRON HCL INJECTION 12-19-2014 CATY GARZA J7040 CPT-4 NORMAL SALINE SOLUTION INFUS 12-20-2014 CATY GARZA J3370 CPT-4 VANCOMYCIN HCL INJECTION 12-20-2014 Margo GARZA J7040 CPT-4 NORMAL SALINE SOLUTION INFUS 12-20-2014 CATY GARZA J3370 CPT-4 VANCOMYCIN HCL INJECTION 12-20-2014 Margo GARZA J2405 CPT-4 ONDANSETRON HCL INJECTION 12-20-2014 CATY GARZA J2405 CPT-4 ONDANSETRON HCL INJECTION 12-20-2014 CATY GARZA J3370 CPT-4 VANCOMYCIN HCL INJECTION 12-20-2014 Margo GARZA J7040 CPT-4 NORMAL SALINE SOLUTION INFUS 12-20-2014 CATY GARZA J3370 CPT-4 VANCOMYCIN HCL INJECTION 12-20-2014 Margo GARZA 81471 CPT-4 ROUTINE VENIPUNCTURE 12-20-2014 CATY GARZA 67978 CPT-4 THER/PROPH/DIAG IV INF, INIT 12-17-2014 CATY GARZA 01981 CPT-4 THER/PROPH/DIAG IV INF ADDON 12-17-2014 CATY GARZA 11440 CPT-4 THER/PROPH/DIAG IV INF, INIT 12-18-2014 CATY GARZA 27718 CPT-4 THER/PROPH/DIAG IV INF ADDON 12-18-2014 CATY GARZA 30981 CPT-4 TX/PRO/DX INJ NEW DRUG ADDON 12-18-2014 CATY GARZA 19668 CPT-4 THER/PROPH/DIAG IV INF, INIT 12-18-2014 CATY GARZA 50395 CPT-4 THER/PROPH/DIAG IV INF ADDON 12-18-2014 CATY GARZA 91548 CPT-4 TX/PRO/DX INJ NEW DRUG ADDON 12-18-2014 CATY GARZA 43104 CPT-4 THER/PROPH/DIAG IV INF, INIT 12-19-2014 CATY GARZA 63828 CPT-4 TX/PRO/DX INJ NEW DRUG ADDON 12-19-2014 CATY GARZA 20755 CPT-4 THER/PROPH/DIAG IV INF, INIT 12-19-2014 CATY GARZA 23086 CPT-4 THER/PROPH/DIAG IV INF, INIT 12-20-2014 CATY GARZA 20474 CPT-4 THER/PROPH/DIAG IV INF ADDON 12-20-2014 CATY GARZA 69911 CPT-4 TX/PRO/DX INJ NEW DRUG ADDON 12-20-2014 CATY GARZA 30100 CPT-4 THER/PROPH/DIAG IV INF, INIT 12-20-2014 CATY GARZA 29575 CPT-4 THER/PROPH/DIAG IV INF ADDON 12-20-2014 CATY GARZA 26824 CPT-4 TX/PRO/DX INJ NEW DRUG ADDON 12-20-2014 CATY GARZA 32916 CPT-4 ASSAY OF VANCOMYCIN 12-21-2014 CATY GARZA J7040 CPT-4 NORMAL SALINE SOLUTION INFUS 12-21-2014 CATY GARZA J3370 CPT-4 VANCOMYCIN HCL INJECTION 12-21-2014 aMrgo GARZA J2405 CPT-4 ONDANSETRON HCL INJECTION 12-21-2014 CATY GARZA J7040 CPT-4 NORMAL SALINE SOLUTION INFUS 12-21-2014 CATY GARAZ J3370 CPT-4 VANCOMYCIN HCL INJECTION 12-21-2014 Margo GARZA 16777 CPT-4 ROUTINE VENIPUNCTURE 12-21-2014 STAN WHITE 60428 CPT-4 THER/PROPH/DIAG IV INF, INIT 12-21-2014 CATY GARZA 59557 CPT-4 THER/PROPH/DIAG IV INF ADDON 12-21-2014 CATY GARZA 99260 CPT-4 TX/PRO/DX INJ NEW DRUG ADDON 12-21-2014 CATY GARZA 93086 CPT-4 THER/PROPH/DIAG IV INF, INIT 12-21-2014 CATY GARZA 11019 CPT-4 THER/PROPH/DIAG IV INF ADDON 12-21-2014 CATY GARZA J2405 CPT-4 ONDANSETRON HCL INJECTION 12-22-2014 CATY GARZA J7040 CPT-4 NORMAL SALINE SOLUTION INFUS 12-22-2014 CATY GARZA J3370 CPT-4 VANCOMYCIN HCL INJECTION 12-22-2014 Margo LG GARZA 10013 CPT-4 THER/PROPH/DIAG IV INF, INIT 12-22-2014 CATY GARZA 42940 CPT-4 TX/PRO/DX INJ NEW DRUG ADDON 12-22-2014 CATY GARZA 81307 CPT-4 THER/PROPH/DIAG IV INF, INIT 12-22-2014 CATY GARZA 71707 CPT-4 THER/PROPH/DIAG IV INF ADDON 12-22-2014 CATY GARZA J2405 CPT-4 ONDANSETRON HCL INJECTION 12-22-2014 CTAY GARZA J7040 CPT-4 NORMAL SALINE SOLUTION INFUS 12-23-2014 CATY GARZA J3370 CPT-4 VANCOMYCIN HCL INJECTION 12-23-2014 Margo LG GARZA Functional status Functional Status Finding Observation Time Vision Problems yes :55 Vision Correct Dev glasses 91-79-812470:55 Ambulation Asst Dev none 18-86-806460:55 Bathing Assistance none :55 Eating Assistance none :55 Dressing Assistance none :55 Toileting Assistance none :55 Transfer Assistance none :55 Decline Slf Care/Mob no :55 Phys Cond Stable yes :55 Oxygen no :55 Oxygen Flow Rate ra 14-60-005436:55 IV Site Location L AC :05 IV Type peripheral :05 IV Site Information existing :05 IV Site Start Attmpt 3 times :41 IV Site Isael 20 :05 IV Site Appearance WNL :05 IV Site Color clear :05 IV Site Patent yes :05 Dressing Changed yes :41 Dressing Type occlusive :05 Nursing Note IV vanc is finished infusing at this time. IV is saline locked, vitals obtained. Pt ambulates off unit, gait is steady. :55 Cognitive Status Finding Observation Time Learning Ability comprehends well :57 Neurological no :57 Psychological no :57 Physical no :57 Hearing no :57 Blender Needed no :57 Sign Language no :57 Emotional no :57 Vision yes :57 Laguage no :57 Financial no :57 Vital signs Type Value Date Respiration Rate 18breaths per minute : 55 Pulse 68beats per minute :55 Oxygen Saturation 100% :55 BP Systolic 146mmHg 14-99-930443:55 BP Diastolic 79mmHg 97-96-143619:55 Temperature 97.9F 67-56-176035:55 Height 65inches 15-28-469603:35 Weight 225LB 96-28-608303:35 Social history No Social History or smoking status observations were recorded for this visit. ( Unknown if ever smoked.) Treatment Plan No treatment plan text is available for this visit. Hospital discharge instructions Valuables yes Valuable Type jewelry (describe) PNE Vac never Flu Vac 04/2014 Tetanus Vac 06/2013
--- OUTSIDE RECORDS SUMMARY | 2020-01-18 15:29 | XMS REPORT ---
Author Author [facility] Medic al Staff, TOMY Rashid Organization [facility] Address [address] [place], [place] [address] Phone [phone] Care Team Providers Care Acquisition Associate Name Role Phone ABDIRAHMAN WHITE MD PP [phone] Summary purpose TRANSITION OF CARE AUTO GENERATION Chief Complaint and Reason for Visit Admit Diagnosis 1 OTHER INJURY OF OTHER SI Problem list No authorized problems tracked for [...] tests and/or laboratory data RESULTS Radiology Results [id number]:49:00 SACRUM - COCCYX XRAY 3V PACs Image DATE OF EXAM: Oct 27 2014 RAD [id number] XRAY- 3 VIEW : RADIOLOGY REPORT DATE OF SERVICE: 10/27/14 HISTORY: Fall, pain SACROCOCCYGEAL SPINE 1700 HOURS The sacrum and coccyx are normal. The SI joints are normal and symmetrical. The sacral foramina are normal. IMPRESSION: Normal sacrococcygeal spine. MD GEOVANNA Carrasco/ne10/28/2014 08:26:00 / 10/08 08:31:53 cc:Dr. Abdirahman White This document has been electronically Signed by: On: DATE OF EXAM: Oct 27 2014 RAD [id number] XRAY- 3 VIEW : RADIOLOGY REPORT DATE OF SERVICE: 10/27/14 HISTORY: Fall, pain SACROCOCCYGEAL SPINE 1700 HOURS The sacrum and coccyx are normal. The SI joints are normal and symmetrical. The sacral foramina are normal. IMPRESSION: Normal sacrococcygeal spine. Justin Carpenter MD MWD/nh/ 08:26:00 / 10/08 08:31:53 cc:Dr. Abdirahman White This document has been electronically Signed by: JUSTIN CARPENTER On: Oct 28 20149:49A Result Amended on 2014-10-28 at 09:49:16 . Previous status was [place]. History of procedures Procedure Code Code Type Description Date Performed Performing Physician 89677 CPT-4 X-RAY EXAM OF TAILBONE 10-27-2014 SUSANAAllison MERAZ 10879 CPT-4 EMERGENCY DEPT VISIT 10-27-2014 SILVANA MERAZ 35408 CPT-4 EMERGENCY DEPT VISIT 10-27-2014 SILVANA MERAZ Functional status Functional Status Finding Observation Time Abdomen Appearance obese :25 Abdomen non-tender 05-57-671962:25 Ramírez no 22-47-475018:25 Urination normal 52-91-336083:25 Quality sym/unlabored :25 Cough absent : Secretions yes :25 Airway natural :25 Chest Tube no :25 Oxygen no :30 Temp >100.4 no : Temp <96.8 no :25 Chills with rigors no : HR > 90bpm no :25 Respirations > 20 no :25 Systolic <90 no :25 headache stiff neck no :25 Rapid Resp no :25 Nursing Note Pt takes po hydrocodone per order. Dismissal instructions reviewed et pt voices understanding. Pt dismissed in stable condition. RN accompanies to registration area. :25 Vital signs Type Value Date Respiration Rate 20breaths per minute 12-58-707517: 30 Pulse 99beats per minute :30 Oxygen Saturation 96% 98-08-063444:30 BP Systolic 147mmHg 18-53-141123:30 BP Diastolic 82mmHg 23-77-085288:30 Temperature 97.1F 92-90-613311:30 Social history Type Value Smoking Status CURRENT EVERY DAY SMOKER Treatment Plan No treatment plan text is available for this visit. Hospital discharge instructions Dismissal Condition fair Disposition on DC home DC Inst/Educ Give yes Med/Side Effects Rev yes Comment: RX: hydrocodone 5/325 PNE Vac none Flu Vac 2014 Tetanus Vac current
--- OUTSIDE RECORDS SUMMARY | 2020-01-18 15:29 | XMS REPORT ---
Author Author [facility] Medic al StaffTOMY Organization [facility] Address [address] [place], [place] [address] Phone [phone] Care Team Providers Care Network Specialist Name Role Phone SILVANA MENON MD PP [phone] Summary purpose TRANSITION OF CARE AUTO GENERATION [...] Functional Status Finding Observation Time Muscle Strength RUE 5 ROM full resist :25 Muscle Strength RLE 5 ROM full resist :25 Muscle Strength LUE 5 ROM full resist :25 Muscle Strength LLE 5 ROM full resist :25 Abdomen Appearance round :25 Ramírez no :25 Urination normal :25 Quality sym/unlabored :25 Cough absent :25 Secretions no :25 Airway natural : Chest Tube no : Oxygen no :55 Temp >100.4 no : Temp <96.8 no : Chills with rigors no : HR > 90bpm no : Respirations > 20 no : Systolic <90 no : headache stiff neck no :25 Nursing Note Reviewed home instructions w ith pt - pt verbalizes understanding of instructions written copy given. Pt is amb off unit at this time in good condition. :55 Vital signs Type Value Date Respiration Rate 20breaths per minute : 55 Pulse 91beats per minute :55 Oxygen Saturation 99% :55 BP Systolic 121mmHg :55 BP Diastolic 76mmHg :55 Temperature 97.9F :55 Height 63inches :58 Weight 226LB :58 Social history Type Value Smoking Status CURRENT EVERY DAY SMOKER Treatment Plan No treatment plan text is available for this visit. Hospital discharge instructions Dismissal Condition good Disposition on DC home DC Inst/Educ Give yes Med/Side Effects Rev yes PNE Vac none Flu Vac 2014 Tetanus Vac 2012
--- OUTSIDE RECORDS SUMMARY | 2020-01-18 15:29 | XMS REPORT ---
Author Author [facility] Medic al Staff, TOMY Rashid Organization [facility] Address [address] [place], [place] [address] Phone [phone] Care Team Providers Care Type Inspector Name Role Phone CHRISTOPHER YORK, CAROLEE PP [phone] Summary purpose TRANSITION OF CARE AUTO GENERATION [...] Code Type Description Date Performed Performing Physician 38974 CPT-4 EMERGENCY DEPT VISIT 08-14-2015 SILVANA MERAZ 07739 CPT-4 EMERGENCY DEPT VISIT 08-14-2015 SILVANA MERAZ 38584 CPT-4 THER/PROPH/DIAG INJ, SC/IM 08-14-2015 SILVANA MERAZ J1170 CPT-4 HYDROMORPHONE INJECTION 08-14-2015 LUIS E MERAZ J2550 CPT-4 PROMETHAZIEN 25MG/ML 08-14-2015 SILVANA MERAZ Functional status Functional Status Finding Observation Time Diet regular 31-43-242060:26 Abdomen Appearance obese :26 Abdomen soft :26 Ramírez no :26 Urination normal :26 Quality sym/unlabored : Cough absent :26 Secretions no :26 Airway natural : Chest Tube no : Oxygen no :50 Temp >100.4 no : Temp <96.8 no : Chills with rigors no : HR > 90bpm no : Respirations > 20 no : Systolic <90 no : headache stiff neck no :26 Nursing Note Discharge instructions given , along with script to fill for PO Dilaudid. Pt states of pain "better" at 5/10. Pt ambulated out with spouse in good condition to home. :50 Vital signs Type Value Date Respiration Rate 20breaths per minute : 50 Pulse 101beats per minute :5 0 Oxygen Saturation 96% :50 BP Systolic 153mmHg :50 BP Diastolic 97mmHg :50 Temperature 98F :50 Social history Type Value Smoking Status CURRENT EVERY DAY SMOKER Treatment Plan No treatment plan text is available for this visit. Hospital discharge instructions Dismissal Condition good Disposition on DC home DC Inst/Educ Give yes Med/Side Effects Rev yes PNE Vac none Flu Vac 2014 Tetanus Vac 2012
--- OUTSIDE RECORDS SUMMARY | 2020-01-18 15:29 | XMS REPORT ---
Author Author [facility] Medic al Staff, TOMY Rashid Organization [facility] Address [address] [place], [place] [address] Phone [phone] Care Team Providers Care Wagon Washer Name Role Phone CHRISTOPHER YORK, CAROLEE PP [phone] RYAN GALICIA APRN PP [phone] Summary purpose TRANSITION OF CARE AUTO GENERATION [...]
--- OUTSIDE RECORDS SUMMARY | 2020-01-18 15:29 | XMS REPORT ---
Author Author [facility] Medic al StaffTOMY Organization [facility] Address [address] [place], [place] [address] Phone [phone] Care Team Providers Care Service Provider Name Role Phone CAROLEE WHITE MD PP [phone] CAROLEE WHITE MD, PP [phone] Summary purpose TRANSITION OF CARE AUTO GENERATION Chief Complaint and Reason for Visit Admit Diagnosis 1 I&D PERIRECTAL ABSCESS Problem list No authorized problems tracked for continuity of care are available for this vis it. Encounters The following conditions tracked for encounter diagnoses were recorded for this visit: Finding or Diagnosis Status Certainty Chronicity Onset *INCISION AND DRAINAGE OF ABSCESS Active Medications Home Medications Medication Directions Started Status [...] Status Finding Observation Time Vision Problems yes 90-57-771458:21 Vision Correct Dev glasses 90-00-615867:21 Ambulation Asst Dev none 66-90-471536:21 Range of Motion full 90-34-504936:10 Muscle Strength RUE 5 ROM full resist 13-70-998466:10 Muscle Strength RLE 5 ROM full resist :10 Muscle Strength LUE 5 ROM full resist :10 Muscle Strength LLE 5 ROM full resist : Transfers assist x 1 :10 Ambulation in room : Balance unsteady : Bathing Assistance none : Eating Assistance none : Dressing Assistance none : Toileting Assistance none : Transfer Assistance none : Decline Slf Care/Mob no :21 Phys Cond Stable yes :21 Nutrition normal :10 Diet regular : Oral Cavity moist and intact : Teeth none :10 Dental Hygiene good :10 Abdomen Appearance obese :10 Abdomen soft :10 Bowel Sounds present :10 NG Tube no :10 Feeding Tube none :10 Ramírez no :10 Cont Bladder Irr no :10 Ostomy no :10 Stool normal :10 Urination normal :10 Quality sym/unlabored :10 Cough absent :10 Secretions no :10 Breath Sounds RUL clear :10 Breath Sounds RML clear :10 Breath Sounds RLL clear :10 Breath Sounds SARA clear :10 Breath Sounds LLL clear :10 Airway natural :10 Chest Tube no :10 Oxygen no :15 C-PAP no :10 BI-PAP no :10 Temp >100.4 no :10 Temp <96.8 no : Chills with rigors no : HR > 90bpm no : Respirations > 20 no : Systolic <90 no : headache stiff neck no : Rapid Resp no :10 IV Site Location Rt AC :25 IV Type peripheral :25 IV Site Information discontinued : IV Site Start Attmpt 1 times :57 IV Site Isael 20 37-89-106210:25 IV Site Appearance WNL : IV Site Color clear : IV Site Patent yes : Dressing Type occlusive : Nursing Note pt dismissed from the unit a t this time. pt ambulatory to private vehicle. pt in stable condition to home. no questions or concerns regarding home instructions. sisterdeonna, to drive pt home. 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 Hospital discharge instructions Discharge Date/Time 10/21/14 1030 Accompanied By crystal Relationship other (explain) Comment: sister Dismissal Condition good Disposition on DC home Valuables yes Valuable Type billfold/purse DC Inst/Educ Give yes Exit Care Educ Given yes PNE Vac never Flu Vac 04/2014 Tetanus Vac 06/2013 Diet Explained yes Follow up appt appt made (specify) Follow Up Appt D/T 10/27/14 4369
--- OUTSIDE RECORDS SUMMARY | 2020-01-18 15:29 | XMS REPORT ---
Author Author [facility] Medic al Staff, TOMY Rashid Organization [facility] Address [address] [place], [place] [address] Phone [phone] Care Team Providers Care Digital Marketing Specialist Name Role Phone CHRISTOPHER YORK, CAROLEE PP [phone] CAROLEE WHITE MD PP [phone] Summary purpose TRANSITION OF CARE AUTO GENERATION Chief Complaint and Reason for Visit Admit Diagnosis 1 E/O PERINEAL HYADRIANITIS Problem list No authorized problems tracked for [...] Dev none :24 Range of Motion full :00 Muscle Strength RUE 5 ROM full resist :00 Muscle Strength RLE 5 ROM full resist :00 Muscle Strength LUE 5 ROM full resist :00 Muscle Strength LLE 5 ROM full resist :00 Transfers assist x 1 :00 Ambulation in room : Balance unsteady : Bathing Assistance none :24 Eating Assistance none :24 Dressing Assistance none :24 Toileting Assistance none :24 Transfer Assistance none :24 Decline Slf Care/Mob no :24 Phys Cond Stable yes :24 Nutrition normal :00 Diet regular : Oral Cavity moist and intact : Teeth none : Dental Hygiene good : Abdomen Appearance obese : Abdomen soft : Bowel Sounds present :00 NG Tube no : Feeding Tube none : Ramírez no :00 Cont Bladder Irr no :00 Ostomy no : Stool normal : Urination normal : Quality sym/unlabored : Cough absent : Secretions no : Breath Sounds RUL clear :00 Breath Sounds RML clear : Breath Sounds RLL clear :00 Breath Sounds SARA clear : Breath Sounds LLL clear :00 Airway natural : Chest Tube no :00 Oxygen no :30 C-PAP no :00 BI-PAP no :00 Temp >100.4 no :00 Temp <96.8 no :00 Chills with rigors no : HR > 90bpm no :00 Respirations > 20 no : Systolic <90 no : headache stiff neck no : Rapid Resp no : IV Site Location L ac : IV Type peripheral : IV Site Information discontinued : IV Site Start Attmpt 2 times : IV Site Isael 20 : IV Site Appearance WNL : IV Site Color clear : IV Site Patent yes : Dressing Type occlusive : Nursing Note pt dismissed from the unit a t this. pt's grandfather to drive her home. personal belongings and discharge paperwork in hand. no questions about home instructions. pt in stable condition to go home. 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 ( Unknown if ever smoked.) Treatment Plan No treatment plan text is available for this visit. Hospital discharge instructions Discharge Date/Time 07/19/15 1440 Relationship other (explain) Comment: aj Dismissal Condition good Disposition on DC home Valuables yes Valuable Type billfold/purse Valuables Returned T patient DC Inst/Educ Give yes Exit Care Educ Given yes Med/Side Effects Rev yes PNE Vac never Flu Vac 04/2015 Tetanus Vac 06/2013 Diet Explained yes Follow up appt already scheduled Follow Up Appt D/T 07/27/15 2305
--- OUTSIDE RECORDS SUMMARY | 2020-01-18 15:29 | XMS REPORT ---
Author Author [facility] Medic al Staff, TOMY Rashid Organization [facility] Address [address], [place] [address] Phone [phone] Care Team Providers Care Vp Design Name Role Phone ROCHELLE YORK, LENARD PP [phone] Summary purpose TRANSITION OF CARE AUTO GENERATION [...]
--- OUTSIDE RECORDS SUMMARY | 2020-01-18 15:29 | XMS REPORT ---
Author Author [facility] Medic al Staff, TOMY Rashid Organization [facility] Address [address] [place], [place] [address] Phone [phone] Summary purpose TRANSITION OF CARE AUTO GENERATION [...] Relevant diagnostic tests and/or laboratory data RESULTS Routine Cultures 99-45-740258:03:00 Sputum Culture Plate Date and Time 10/04/2015 17:03 SourceSPUTUM CULTURE REPORT Small Amount Apparent Normal Pauline Release Date/Time: 0 10/05/2015 08:39 CULTURE REPORT Small Amount Apparent Normal Pauline Release Date/Time: 0 10/06/2015 07:37 GRAM STAIN Rare Amount Gram Positive Cocci Release Date/Time: 0 10/05/2015 09:17 History of procedures Procedure Code Code Type Description Date Performed Performing Physician 77913 CPT-4 SMEAR, GRAM STAIN 10-04-2015 LENARD GALINDO 39875 CPT-4 CULTURE, BACTERIA, OTHER 10-04-2015 Janee BYRD Functional status No functional or cognitive status [...]
--- OUTSIDE RECORDS SUMMARY | 2020-01-18 15:29 | XMS REPORT ---
Author Author [facility] Medic al Staff, TOMY Rashid Organization [facility] Address [address], [place] [address] Phone [phone] Care Team Providers Care Business Analysis Specialist Name Role Phone CHRISTOPHER YORK, CAROLEE PP [phone] Summary purpose TRANSITION OF CARE AUTO GENERATION [...] Status Finding Observation Time Abdomen Appearance obese :00 Abdomen soft :00 Ramírez no :00 Urination normal : Quality sym/unlabored : Cough absent :00 Secretions no : Breath Sounds RUL clear :00 Breath Sounds RML clear :00 Breath Sounds RLL clear :00 Breath Sounds SARA clear :00 Breath Sounds LLL clear : Airway natural : Chest Tube no : Oxygen no : Oxygen Flow Rate RA : Temp >100.4 no : Temp <96.8 no : Chills with rigors no : HR > 90bpm yes : Respirations > 20 no Systolic <90 no : headache stiff neck no Nursing Note oxycodone 10mg PO admin. Dis charge instructions reviewed with pt-verbalized understanding. VS obtained, dc in good condition and ambulatory. Escorted to [facility]BS for infusion. Comment: This result is a modification to a previously-entered result. It was modified on 08/23/15 at 18:48 by YARED. :28 Vital signs Type Value Date Respiration Rate 18breaths per minute : Pulse 93beats per minute : Oxygen Saturation 97% : BP Systolic 135mmHg : BP Diastolic 86mmHg :28 Temperature 98.0F :28 Social history Type Value Smoking Status CURRENT EVERY DAY SMOKER Treatment Plan No treatment plan text is available for this visit. Hospital discharge instructions Dismissal Condition good Disposition on DC home DC Inst/Educ Give yes Med/Side Effects Rev yes PNE Vac none Flu Vac 2014 Tetanus Vac 2012
--- OUTSIDE RECORDS SUMMARY | 2020-01-18 15:29 | XMS REPORT ---
Author Author [email or web address] Medic al Staff, TOMY Rashid Organization [facility] Address [address] [place], [place] [address] Phone [phone] Care Team Providers Care Barber Shop Manager Name Role Phone CHRISTOPHER YORK, CAROLEE PP [phone] CAROLEE WHITE MD PP [phone] Summary purpose TRANSITION OF CARE AUTO GENERATION Chief Complaint and Reason for Visit Admit Diagnosis 1 E/O HYDRANITIS LEFT HIP RIG HT CHEST Admit Diagnosis 2 LEFT INNER THIGH Problem list No authorized problems tracked for [...] Finding Observation Time Hearing Prob Loc none :46 Vision Problems yes :46 Vision Correct Dev glasses :46 Ambulation Asst Dev none :46 Range of Motion full :24 Muscle Strength RUE 5 ROM full resist :24 Muscle Strength RLE 5 ROM full resist :24 Muscle Strength LUE 5 ROM full resist :24 Muscle Strength LLE 5 ROM full resist :24 Transfers assist x 1 :24 Ambulation in room :24 Balance steady :24 Bathing Assistance none :46 Eating Assistance none :46 Dressing Assistance none :46 Toileting Assistance none :46 Transfer Assistance none :46 Decline Slf Care/Mob no :46 Phys Cond Stable yes :46 Nutrition normal :24 Diet regular :24 Oral Cavity moist and intact : Teeth dentures :24 Dental Hygiene good :24 Abdomen Appearance obese :24 Abdomen soft :24 Bowel Sounds present :24 NG Tube no :24 Feeding Tube none :24 Ramírez no :24 Cont Bladder Irr no :24 Ostomy no :24 Stool normal : Urination normal :24 Quality sym/unlabored :24 Cough absent :24 Secretions no :24 Breath Sounds RUL clear :24 Breath Sounds RML clear :24 Breath Sounds RLL clear :24 Breath Sounds SARA clear :24 Breath Sounds LLL clear :24 Airway natural :24 Chest Tube no :24 Oxygen no :51 C-PAP no :24 BI-PAP no :24 Temp >100.4 no :24 Temp <96.8 no :24 Chills with rigors no 70-22-152601:24 HR > 90bpm no :24 Respirations > 20 no :24 Systolic <90 no :24 headache stiff neck no :24 IV Site Location Rt hand : IV Type peripheral :22 IV Site Information discontinued : IV Site Start Attmpt 2 times :28 IV Site Isael 20 :28 IV Site Appearance WNL : IV Site Color clear : IV Site Patent yes : Dressing Type gauze : Nursing Note Pts wallet was found in the bathroom of her OPS room, Alisa Morgan made contact with the pt via phone, pt is on her way to pick it up. 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 Hospital discharge instructions Discharge Date/Time 06/18/15 @ 1235 Accompanied By Farideh Carrillo other (explain) Comment: sister Dismissal Condition good Disposition on DC home Valuables no DC Inst/Educ Give yes Exit Care Educ Given yes Med/Side Effects Rev yes PNE Vac never Flu Vac 04/2014 Tetanus Vac 06/2013 Diet Explained yes Follow up appt call for appointment
--- OUTSIDE RECORDS SUMMARY | 2020-01-18 15:29 | XMS REPORT ---
Author Author [facility] Medic al Staff, TOMY Rashid Organization [facility] Address [address], [place] [address] Phone [phone] Care Team Providers Care Coyote Hunter Name Role Phone CHRISTOPHER YORK, CAROLEE PP [phone] Summary purpose TRANSITION OF CARE AUTO GENERATION [...] and/or laboratory data RESULTS Therapeutic Drug Monitoring 99-27-087562:15:00 Result Normal Range Units Vancomycin Trough L 5.3 10-22 ug /ml 61-32-806110:36:00 Result Normal Range Units Vancomycin Trough L 6.1 10-22 ug /ml 47-21-682630:48:00 Result Normal Range Units Vancomycin Trough L 1.0 10-22 ug /ml History of procedures Procedure Code Code Type Description Date Performed Performing Physician 48879 CPT-4 ROUTINE VENIPUNCTURE 08-22-2015 STAN WHITE 69230 CPT-4 ROUTINE VENIPUNCTURE 08-23-2015 CATY GARZA 19935 CPT-4 ROUTINE VENIPUNCTURE 08-25-2015 STAN WHITE 59743 CPT-4 ASSAY OF VANCOMYCIN 08-22-2015 ЮЛИЯ CHENG 61540 CPT-4 ASSAY OF VANCOMYCIN 08-23-2015 ЮЛИЯ CHENG 43558 CPT-4 ASSAY OF VANCOMYCIN 08-25-2015 ЮЛИЯ CHENG 61030 CPT-4 THER/PROPH/DIAG IV INF INIT 08-22-2015 ЮЛИЯ CHENG 10311 CPT-4 THER/PROPH/DIAG IV INF INIT 08-23-2015 ЮЛИЯ CHENG 05950 CPT-4 THER/PROPH/DIAG IV INF INIT 08-23-2015 ЮЛИЯ CHENG 04848 CPT-4 THER/PROPH/DIAG IV INF INIT 08-24-2015 ЮЛИЯ CHENG 48093 CPT-4 THER/PROPH/DIAG IV INF INIT 08-24-2015 ЮЛИЯ CHENG 05650 CPT-4 THER/PROPH/DIAG IV INF INIT 08-25-2015 ЮЛИЯ CHENG 90205 CPT-4 THER/PROPH/DIAG IV INF INIT 08-25-2015 ЮЛИЯ CHENG 30128 CPT-4 THER/PROPH/DIAG IV INF INIT 08-26-2015 ЮЛИЯ CHENG 50080 CPT-4 THER/PROPH/DIAG IV INF ADDON 08-22-2015 ЮЛИЯ CHENG 80940 CPT-4 THER/PROPH/DIAG IV INF ADDON 08-23-2015 ЮЛИЯ CHENG 04302 CPT-4 THER/PROPH/DIAG IV INF ADDON 08-23-2015 ЮЛИЯ CHENG 47940 CPT-4 THER/PROPH/DIAG IV INF ADDON 08-24-2015 ЮЛИЯ CHENG 94905 CPT-4 THER/PROPH/DIAG IV INF ADDON 08-24-2015 ЮЛИЯ CHENG 89367 CPT-4 THER/PROPH/DIAG IV INF ADDON 08-25-2015 ЮЛИЯ CHENG 60273 CPT-4 THER/PROPH/DIAG IV INF ADDON 08-25-2015 ЮЛИЯ CHENG 55311 CPT-4 THER/PROPH/DIAG IV INF ADDON 08-26-2015 ЮЛИЯ CHENG 83200 CPT-4 TX/PRO/DX INJ NEW DRUG ADDON 08-23-2015 ЮЛИЯ CHENG 54976 CPT-4 TX/PRO/DX INJ NEW DRUG ADDON 08-24-2015 ЮЛИЯ CHENG 46101 CPT-4 TX/PRO/DX INJ NEW DRUG ADDON 08-24-2015 ЮЛИЯ CHENG 55926 CPT-4 TX/PRO/DX INJ NEW DRUG ADDON 08-25-2015 ЮЛИЯ CHENG 61998 CPT-4 TX/PRO/DX INJ NEW DRUG ADDON 08-25-2015 ЮЛИЯ CHENG 20483 CPT-4 TX/PRO/DX INJ NEW DRUG ADDON 08-26-2015 ЮЛИЯ CHENG J2405 CPT-4 ONDANSETRON HCL INJECTION 08-23-2015 ЮЛИЯ CHENG J2405 CPT-4 ONDANSETRON HCL INJECTION 08-24-2015 ЮЛИЯ CHENG J2405 CPT-4 ONDANSETRON HCL INJECTION 08-24-2015 ЮЛИЯ CHENG J2405 CPT-4 ONDANSETRON HCL INJECTION 08-25-2015 ЮЛИЯ CHENG J2405 CPT-4 ONDANSETRON HCL INJECTION 08-26-2015 ЮЛИЯ CHENG J3370 CPT-4 VANCOMYCIN HCL INJECTION 08-22-2015 D PENNIE CHENG J3370 CPT-4 VANCOMYCIN HCL INJECTION 08-23-2015 D PENNIE CHENG J3370 CPT-4 VANCOMYCIN HCL INJECTION 08-23-2015 D PENNIE CHENG J3370 CPT-4 VANCOMYCIN HCL INJECTION 08-24-2015 D PENNIE CHENG J3370 CPT-4 VANCOMYCIN HCL INJECTION 08-24-2015 D PENNIE CHENG J3370 CPT-4 VANCOMYCIN HCL INJECTION 08-25-2015 D PENNIE CHENG J3370 CPT-4 VANCOMYCIN HCL INJECTION 08-25-2015 D PENNIE CHENG J3370 CPT-4 VANCOMYCIN HCL INJECTION 08-26-2015 D PENNIE CHENG J3370 CPT-4 VANCOMYCIN HCL INJECTION 08-27-2015 D PENNIE CHENG J7040 CPT-4 NORMAL SALINE SOLUTION INFUS 08-22-2015 ЮЛИЯ CHENG J7040 CPT-4 NORMAL SALINE SOLUTION INFUS 08-23-2015 ЮЛИЯ CHENG J7040 CPT-4 NORMAL SALINE SOLUTION INFUS 08-23-2015 ЮЛИЯ CHENG J7040 CPT-4 NORMAL SALINE SOLUTION INFUS 08-24-2015 ЮЛИЯ CHENG J7040 CPT-4 NORMAL SALINE SOLUTION INFUS 08-24-2015 ЮЛИЯ CHENG J7040 CPT-4 NORMAL SALINE SOLUTION INFUS 08-25-2015 ЮЛИЯ CHENG J7040 CPT-4 NORMAL SALINE SOLUTION INFUS 08-25-2015 ЮЛИЯ CHENG J7040 CPT-4 NORMAL SALINE SOLUTION INFUS 08-26-2015 ЮЛИЯ CHENG J7040 CPT-4 NORMAL SALINE SOLUTION INFUS 08-27-2015 ЮЛИЯ CHENG Functional status Functional Status Finding Observation Time Hearing Prob Loc none 87-85-518565:11 Vision Problems yes :11 Vision Correct Dev glasses :11 Ambulation Asst Dev none :11 Bathing Assistance none 48-85-296569:11 Eating Assistance none 19-66-673499:11 Dressing Assistance none :11 Toileting Assistance none :11 Transfer Assistance none :11 Decline Slf Care/Mob no :11 Phys Cond Stable yes :11 Oxygen no :58 Oxygen Flow Rate ra :58 IV Site Location left hand :06 IV Type peripheral :06 IV Site Information existing :06 IV Site Start Attmpt 1 times 15-54-075366:45 IV Site Isael 20 45-18-659738:06 IV Site Appearance WNL :06 IV Site Color clear :06 IV Site Patent yes :06 Dressing Changed yes 22-41-755206:45 Dressing Type occlusive :06 Nursing Note Dismiss to home post infusio n. IV site is flushed, locked, and wrapped c gauze and coban. Flushes properly. Fair condition. Private vehicle c all belongings. 39-30-656386:05 Cognitive Status Finding Observation Time Oriented To Date 5 Yes :[address] 5 Yes :11 Name 3 Objects 3 Yes :11 Name Object in Rm 2 Yes :11 Recall 3 Objects 3 Yes :11 Repeats a Phrase 1 Yes :11 Follows Verbal Direc 3 Yes :11 Follows Written Dire 1 Yes :11 Write a Sentance 1 Yes :11 Draw an Object 1 Yes :11 Mini Mental Total 25 points :11 Learning Ability comprehends well : Neurological no :09 Psychological no :09 Physical no :09 Hearing no :09 Rate Reviewer Needed no : Sign Language no : Emotional no :09 Vision no : Laguage no :09 Financial no :09 Vital signs Type Value Date Respiration Rate 16breaths per minute : 58 Pulse 76beats per minute :58 Oxygen Saturation 98% :58 BP Systolic 143mmHg :58 BP Diastolic 105mmHg :58 Temperature 98.4F :58 Height 63inches :08 Weight 233.5LB :08 Social history No Social History or smoking status observations were recorded for this visit. ( Unknown if ever smoked.) Treatment Plan No treatment plan text is available for this visit. Hospital discharge instructions Valuables no PNE Vac never Flu Vac 04/2015 Tetanus Vac 06/2013
--- OUTSIDE RECORDS SUMMARY | 2020-01-18 15:29 | XMS REPORT ---
Author Author [facility] Medic al Staff, TOMY Rashid Organization [facility] Address [address], [place] [address] Phone [phone] Summary purpose TRANSITION OF CARE AUTO GENERATION [...]
--- OUTSIDE RECORDS SUMMARY | 2020-01-18 15:30 | XMS REPORT ---
Author Author [facility] Medic al Staff, TOMY Rashid Organization [facility] Address [address], [place] [address] Phone [phone] Care Team Providers Care Diamond Mounter Name Role Phone ROCHELLE YORK, LENARD PP [phone] Summary purpose TRANSITION OF CARE AUTO GENERATION [...] Code Type Description Date Performed Performing Physician 67984 CPT-4 EMERGENCY DEPT VISIT 11-06-2015 [place] [address] CPT-4 EMERGENCY DEPT VISIT 11-06-2015 RADHA AN Functional status Functional Status Finding Observation Time Abdomen Appearance obese 99-57-752199:20 Abdomen non-tender 98-89-923287:20 Ramírez no 58-34-806635:20 Urination normal 48-98-224510:20 Quality sym/unlabored 55-41-578667:20 Cough absent 35-83-558010:20 Secretions no 76-73-369117:20 Airway natural :20 Chest Tube no :20 Oxygen no :30 Oxygen Flow Rate RA :30 Temp >100.4 no :20 Temp <96.8 no :20 Chills with rigors no : HR > 90bpm yes :20 Respirations > 20 no :20 Systolic <90 no :20 headache stiff neck no :20 Nursing Note pt. discharging to home. VS stable at this time. instructed pt. to follow up with [facility] for any further pain medication adjustments. pt. verbalized understanding of dismissal instructions. pt. ambulated out of ER in stable condition with friend providing transportation. :30 Vital signs Type Value Date Respiration Rate 16breaths per minute : Pulse 109beats per minute :3 0 Oxygen Saturation 99% :30 BP Systolic 137mmHg :30 BP Diastolic 89mmHg :30 Temperature 96.6F :30 Weight 232LB 59-01-288681:44 Social history Type Value Smoking Status CURRENT EVERY DAY SMOKER Treatment Plan No treatment plan text is available for this visit. Hospital discharge instructions Dismissal Condition good Disposition on DC home DC Inst/Educ Give yes Med/Side Effects Rev yes PNE Vac none Flu Vac 2014 Tetanus Vac 2012
--- OUTSIDE RECORDS SUMMARY | 2020-01-18 15:30 | XMS REPORT ---
Author Author [facility] Medic al Staff, TOMY Rashid Organization [facility] Address [address], [place] [address] Phone [phone] Care Team Providers Care Interlocking Pavement Installer Name Role Phone SILVANA MENON MD PP [phone] Summary purpose TRANSITION OF CARE AUTO GENERATION [...] Relevant diagnostic tests and/or laboratory data RESULTS Hematology 07-90-461217:30:00 Result Normal Range Units WBC H 19.6 4.8-10.8 103/uL RBC 5.0 4.2-5.4 106/uL HGB 14.3 12.0-16.0 g/dl HCT 42.5 36.9-47.0 % MCV 85.9 81-99 FL MCH 28.9 27-31 pg MCHC 33.6 33-37 g/dl RDW 13.1 11.5-15.5 % PLT 340 130-400 103/uL MPV 9.4 7.3-10.4 FL Neutro % H 86.8 40-70 % Lymph % L 7.5 20-40 % Ceiba % 4.5 0-10.0 % Eos % 0.0 0-7.0 % Baso % 0.1 0-2 % Neutro # H 17.0 1.5-7.5 103/uL Lymph # 1.5 0.9-4.0 103/uL Ceiba # H 0.9 0-0.8 103/uL Eos # 0.0 0-0.6 103/uL Baso # 0.0 0-0.1 103/uL Reference Lab ([facility]) [id number]:30:00 Result Normal Range Units D-Dimer < 100 0-400 ng/ml Hematology - Other ([facility] [place]) :30:00 Result Normal Range Units Sed Rate 4 0-20 Radiology Results [id number]:23:00 DUP ADELINE UNILATERAL PACs Image DATE OF EXAM: Dec 26 2015 [id number] VENOUS DUPLEX -UNILATERAL : RADIOLOGY REPORT DATE OF SERVICE: 12/26/15 HISTORY: Patient has right knee pain, ri ght lower leg swelling. LOWER EXTREMITY RIGHT SIDE VENOUS DOPPLE R STUDY 1810 HOURS There is spontaneous and augmented flow in the deep veins. Normal compressibility of deep veins is seen. IMPRESSION: No evidence of deep vein thrombosis. DO John Van 12/27/2015 07:52:12/08 08:30:04 cc:SILVANA MENON This document has been electronically Signed by: On: DATE OF EXAM: Dec 26 2015 [id number] VENOUS DUPLEX -UNILATERAL : RADIOLOGY REPORT DATE OF SERVICE: 12/26/15 HISTORY: Patient has right knee pain, ri ght lower leg swelling. LOWER EXTREMITY RIGHT SIDE VENOUS DOPPLE R STUDY 1810 HOURS There is spontaneous and augmented flow in the deep veins. Normal compressibility of deep veins is seen. IMPRESSION: No evidence of deep vein thrombosis. DO John Van 12/27/2015 07:52:12/08 08:30:04 cc:SILVANA MENON This document has been electronically Signed by: RADHA GALVAN DO On: Dec 27 20152:23P Result Amended on 2015-12-27 at 14:23:36 . Previous status was VT. :30:00 Result Normal Range Units MPV 9.4 7.3-10.4 FL History of procedures Procedure Code Code Type Description Date Performed Performing Physician 58484 CPT-4 ROUTINE VENIPUNCTURE 12-26-2015 REHANA MARCANO 77893 CPT-4 COMPLETE CBC W/AUTO DIFF WBC 12-26-2015 BAKARI KRYS 05529 CPT-4 FIBRIN DEGRADATION, QUANT 12-26-2015 BAKARI KRYS 09438 CPT-4 RBC SED RATE, NONAUTOMATED 12-26-2015 BAKARI MARCANO 59034 CPT-4 EXTREMITY STUDY 12-26-2015 BAKARI DURAN J0696 CPT-4 CEFTRIAXONE SODM 250MG INJ 12-26-2015 BAKARIMAT MARCANO J3010 CPT-4 FENTANYL CITRATE INJECITON 12-26-2015 BAKARIMAT MARCANO 50802 CPT-4 EMERGENCY DEPT VISIT 12-26-2015 TERESEKELECHI ON LICENSE OF [facility] 15203 CPT-4 EMERGENCY DEPT VISIT 12-26-2015 TERESEKELECHI ON LICENSE OF [facility] 16864 CPT-4 THER/PROPH/DIAG INJ, SC/IM 12-26-2015 BAKARIMAT SWEETAHAN Functional status Functional Status Finding Observation Time Muscle Strength RLE 4 ROM slight resist 30-25-386769:20 Abdomen Appearance obese 22-71-773975:20 Abdomen soft 92-40-641920:20 Ramírez no 73-83-421195:20 Urination normal 59-92-284238:20 Quality sym/unlabored 10-28-986263:20 Cough absent 10-45-378707:20 Secretions no 16-50-248449:20 Airway natural 03-06-034986:20 Chest Tube no 88-42-476631:20 Oxygen no 43-28-649598:23 Oxygen Flow Rate RA 19-94-255894:23 Temp >100.4 no 16-79-763253:20 Temp <96.8 no :20 Chills with rigors no 29-07-663188:20 HR > 90bpm no 66-94-520202:20 Respirations > 20 no 00-59-341319:20 Systolic <90 no 52-89-341914:20 headache stiff neck no 56-10-111348:20 Nursing Note Discharge instructions revie wed-verbalized understanding. VS obtianed-dc in good condition and ambulatory :23 Vital signs Type Value Date Respiration Rate 18breaths per minute : Pulse 83beats per minute :23 Oxygen Saturation 97% :23 BP Systolic 136mmHg :23 BP Diastolic 74mmHg :23 Temperature 98F :23 Social history Type Value Smoking Status CURRENT EVERY DAY SMOKER Treatment Plan No treatment plan text is available for this visit. Hospital discharge instructions Dismissal Condition good Disposition on DC home DC Inst/Educ Give yes Med/Side Effects Rev yes PNE Vac none Flu Vac 2014 Tetanus Vac 2012
--- OUTSIDE RECORDS SUMMARY | 2020-01-18 15:30 | XMS REPORT ---
Author Author [facility] Medic al Staff, TOMY Rashid Organization [facility] Address [address], [place] [address] Phone [phone] Summary purpose TRANSITION OF CARE AUTO GENERATION [...] Code Type Description Date Performed Performing Physician 37653 CPT-4 EMERGENCY DEPT VISIT 11-14-2015 JOEL PINK 52381 CPT-4 EMERGENCY DEPT VISIT 11-14-2015 JOEL PINK Functional status Functional Status Finding Observation Time Hearing Prob Loc none :53 Vision Problems no :53 Abdomen Appearance obese :53 Abdomen non-tender :53 Bowel Sounds present :53 Urination normal :53 Quality sym/unlabored :53 Cough absent :53 Airway natural :53 Oxygen no :30 Temp >100.4 no :53 Temp <96.8 no :53 Chills with rigors no :53 HR > 90bpm no :53 Respirations > 20 no :53 Systolic <90 no :53 headache stiff neck no :53 Nursing Note D/C instructions to pt. Understanding ve rbalized. :30 Vital signs Type Value Date Respiration Rate 18breaths per minute : 30 Pulse 93beats per minute :30 Oxygen Saturation 99% :30 BP Systolic 151mmHg :30 BP Diastolic 82mmHg :30 Temperature 98.0F :30 Height 63inches :55 Weight 233LB 96-76-455822:55 Social history Type Value Smoking Status CURRENT EVERY DAY SMOKER Treatment Plan No treatment plan text is available for this visit. Hospital discharge instructions Dismissal Condition good Disposition on DC home DC Inst/Educ Give yes Med/Side Effects Rev yes Flu Vac 2015
--- OUTSIDE RECORDS SUMMARY | 2020-01-18 15:30 | XMS REPORT ---
Author Author [facility] Medic al Staff, TOMY Rashid Organization [facility] Address [address], [place] [address] Phone [phone] Care Team Providers Care Transportation Clerk Name Role Phone CHRISTOPHER YORK, CAROLEE PP [phone] Summary purpose TRANSITION OF CARE AUTO GENERATION Chief Complaint and Reason for Visit No authorized Reason for Visit (Admitting Diagnosis) is available for this visit . Problem list No authorized problems tracked for continuity of care are available for this vis it. Encounters No authorized problems tracked for encounter diagnoses are available for this vi sit. Medications No home medications recorded for this patient visit Allergies, [...]
--- OUTSIDE RECORDS SUMMARY | 2020-01-18 15:30 | XMS REPORT ---
Author Author [facility] Medic al Staff, TOMY Rashid Organization [facility] Address [address] [place], [place] [address] Phone [phone] Care Team Providers Care Mine Surveyor Name Role Phone CHRISTOPHER YORK, CAROLEE PP [phone] Summary purpose TRANSITION OF CARE AUTO GENERATION [...] Functional Status Finding Observation Time Diet regular :10 Abdomen Appearance obese 00-00-113643:10 Abdomen soft 65-90-543819:10 Bowel Sounds present :10 Urination normal :10 Quality sym/unlabored :10 Cough absent :10 Secretions no :10 Airway natural :10 Chest Tube no :10 Oxygen no :35 Temp >100.4 no :10 Temp <96.8 no 51-24-962108:10 Chills with rigors no 30-99-741587:10 HR > 90bpm no :10 Respirations > 20 no :10 Systolic <90 no :10 headache stiff neck no :10 Rapid Resp no :10 Nursing Note Pt amb off unit, denies any questions/concerns at this x. She is accompanied by family and has dc instructions and scripts in hand. :35 Vital signs Type Value Date Respiration Rate 18breaths per minute : 35 Pulse 89beats per minute :35 Oxygen Saturation 98% :35 BP Systolic 139mmHg :35 BP Diastolic 83mmHg :35 Temperature 97.3F :35 Social history Type Value Smoking Status CURRENT EVERY DAY SMOKER Treatment Plan No treatment plan text is available for this visit. Hospital discharge instructions Dismissal Condition good Disposition on DC home DC Inst/Educ Give yes Med/Side Effects Rev yes PNE Vac none Flu Vac 2014 Tetanus Vac current
--- OUTSIDE RECORDS SUMMARY | 2020-01-18 15:30 | XMS REPORT ---
Author Author [facility] Medic al Staff, JERI Rashid Organization [facility] Address [address] [place], [place] [id number] Phone [phone] Care Team Providers Care Tape Editor Name Role Phone ROCHELLE YORK, LENARD PP [phone] Summary purpose TRANSITION OF CARE AUTO GENERATION Chief Complaint and Reason for Visit Admit Diagnosis 1 POST OP WOUND INFECTION Problem list No authorized problems tracked for continuity of care are available for this vis it. Encounters The following conditions tracked for encounter diagnoses were recorded for this visit: Finding or Diagnosis Status Certainty Chronicity Onset *OPEN WOUND Active *MRSA INFECTION Active Medications No medications recorded for this [...] Relevant diagnostic tests and/or laboratory data RESULTS [id number]:11:00 Progress Note PROGRESS NOTE 09/23/2015 15:11:49 S: Jeri is doing fairly well. She i s pretty sore. She had some problems with constipation when stool blake d to be manually removed last evening. Took a dose of milk of magnesia , bowels are moving well today. She was sitting on the toilet so long in cisions the back of her thighs are pretty uncomfortable today. No drain age. She relates she is doing fairly well otherwise. O: VITAL SIGNS: She is afebrile. Tem perature 98.3, pulse 86, blood pressure 124/66, respirations 18, and ox ygen sat is 100% on room air. LUNGS: Clear. HEART: Normal sinus rhythm . ABDOMEN: Soft. LABORATORY: Cultures are growing out Staphylococcus hemolyticus in all the wounds except for 2 of the thighs. Today's CBC shows a white count of 9100, hemoglobin 13.7, differential showing 68 segs, 3 bands, 27 lymphs, 2 mono, no atypical lymphs were noted today. A: Postoperative wound infection, in tractable pain which has improved. P: Continue with current regimen. Wi ll reexamine wounds tomorrow, if they are looking clear, will look at dis charge tomorrow to continue with IV antibiotics as an outpatient. Lenard Lucero MD /tx 09/23/2015 15:11:49/2015 15:37:10 [facility]: [facility] [address] [place] [address]<END HEADER> [id number]:53:00 Progress Note PROGRESS NOTE 09/22/2015 11:53:42 S: Jeri is just generally not feeli ng well today. She cannot really put her finger on it. No change in the p ain. She had been eating okay. No nausea or vomiting. She has been tole rating the IV vancomycin much better since we have a slowed her infusi on rate to 4 hours and gets the IV Benadryl beforehand. The patient has been having some discomfort in urination. However, she locates this as being external rather than bladder or urethral. O: VITAL SIGNS: She has been afebril e. Temperature 97.6, pulse 77, blood pressure 132/81, respirations 20, oxygen saturation is 100% on room air. Examination of the incisions r eveal a small amount of purulent drainage from most of them. Areas are st ill slightly tender. Examination of the genitalia reveals no significant erythema or discharged to the labia or at the introitus. LABORATORY: C ultures are growing Staphylococcus aureus with I\T\D pending . Urine culture is growing 50,000 colonies of ESBL Escherichia coli . Blood cultures are showing no growth x2. A: 1. Wound infections. 2. Dysuria which I think is probably rel ated to skin irritation. At this time I do not think she probably has uri nary tract infection in spite of her urine culture. I am suspicious this may be more asymptomatic bacteriuria. However, we will need to ke ep an eye on this. 3. Malaise with leukocytosis and atypica l lymphocytes, suspect viral syndrome. P: 1. Will continue with vancomycin at the current dose. Current wound doing current wound care. 2. Will try Lotrimin plus hydrocortisone 1% twice a day to the perineum at the areas of irritation. 3. CBC and BMP in the morning. 4. Monospot. Lenard Lucero MD INVESTIGATION DIVISION SERGEANT/nh 09/22/2015 11:53:42/2015 12:01:22 [facility] Code: [facility] [address] [place] [address]<END HEADER> [id number]:00 Progress Note PROGRESS NOTE 09/21/2015 09:43:37 S: Jeri is much more comfortable to day. She once again had a reaction to vancomycin last evening. The intraven ous infusion was discontinued after approximately 25 minutes. O: VITAL SIGNS: She has been afebril e. Temperature 97.1 this morning, pulse 74, blood pressure 118/61, respira tions 18, and oxygen saturation is 96% on room air. LUNGS: Clear. HEART: Normal sinus rhythm. Skin wounds appear about the same. No drainag e. Tenderness continues. LABORATORY/X-RAY/ELECTROCARDIOGRAM DATA: Complete blood count on admission showed a white count of 9500 a nd hemoglobin of 14.7. Differential showed 72 segs, 6% bands, 1 1 lymphs. This morning the complete blood count was unchanged. Chem istries were essentially normal on admission and are unchanged this morn ing. Her cultures are all showing no growth so far today. Urinalys is was clear. A: 1.Wound dehiscence with secon kelsey infection. 2.Red man's syndrome secondary to vancomycin. P: 1.I am going to try a vancomy ascencion infusion today with premedication with ranitidine and Benadr yl. I am going to run the infusion much more slowly over 4 hours. 2.We will obtain a manual differenti al on this morning's complete blood count. 3.I am going to irrigate the wounds with normal saline twice a day before applying gentamicin ointment. Lenard Lucero MD INVESTIGATION DIVISION SERGEANT/cdj09/21/2015 09:43:37/2015 10:52:44 [facility]: [facility] [address] [place] [address]<END HEADER> Routine Urinalysis [id number]:50:00 Result Normal Range Units Color YELLOW Clarity Clear Specific [place] 1.020 1.003-1.035 pH 7.5 4.5-8.0 Glucose NEGATIVE Bilirubin NEGATIVE Ketones NEGATIVE Protein NEGATIVE Urobilinogen 0.2 0-0.2 E.U./dL Nitrites NEGATIVE Blood NEGATIVE Leukocytes NEGATIVE WBCs No WBC's Seen RBCs No RBC's Seen. Squamous Epithelial 4+ Bacteria Rare Amount Blood Cultures [id number]:55:00 Blood Culture Plate Date and Time 09/20/2015 15:58 SourceBLOOD CULTURE REPORT NoGrowth at 1 day. Unless otherwise notified. Final report in 5 Days. Release Date/Time: 0 09/22/2015 11:07 CULTURE REPORT No growth in 5 days. Release Date/Time: 0 09/26/2015 08:02 [id number] Blood Culture Plate Date and Time 09/20/2015 15:58 SourceBLOOD CULTURE REPORT NoGrowth at 1 day. Unless otherwise notified. Final report in 5 Days. Release Date/Time: 0 09/22/2015 11:07 CULTURE REPORT No growth in 5 days. Release Date/Time: 0 09/26/2015 08:02 Therapeutic Drug Monitoring [id number]:20:00 Result Normal Range Units Vancomycin Trough L 6.0 10-22 ug /ml [id number]:42:00 Result Normal Range Units Vancomycin Trough L 3.5 10-22 ug /ml Routine Cultures [id number]:01:00 Wound Culture Plate Date and Time 09/20/2015 20:01 SourceGROIN CULTURE REPORT No Growth After 24 Hours Release Date/Time: 0 09/21/2015 07:25 CULTURE REPORT Small Amount Staphylococcus SpeciesID & Sensitivity to follow Release Date/Time: 0 09/22/2015 10:25 GRAM STAIN No Organisms Seen. Release Date/Time: 0 09/21/2015 09:30 ORGID #1: Small Amount STAPHYLOCOCCUS HAEMOLYTICUS Release Date/Time: 0 09/23/2015 07:57 Sensitivity #1: STAHAE AMPICILLIN > 8 R AMOX CLAV>4/2R CLINDAMYCIN <= 0.5S CEFAZOLIN > 16R CIPROFLOXACIN > 2 R DAPTOMYCIN <= 0.5S ERYTHROMYCIN > 4 R GENTAMICIN > 8 R AMPICILLIN SULBACTAM <=8 /4 R LEVOFLOXACIN > 4 R LINEZOLID <= 1S MOXIFLOXACIN 2 S OXACILLIN > 2 R PENICILLIN > 8 R RIFAMPIN <= 1S TRIMETHSULFA >2/38 R TETRACYCLINE > 8 R VANCOMYCIN 2 S Wound Culture Plate Date and Time 09/20/2015 20:01 SourceGROIN CULTURE REPORT No Growth After 24 Hours Release Date/Time: 0 09/21/2015 07:26 CULTURE REPORT Moderate Amount Staphylococcus SpeciesID & Sensitivity to follow Release Date/Time: 0 09/22/2015 10:20 GRAM STAIN No Organisms Seen. Release Date/Time: 0 09/21/2015 09:31 ORGID #1: Moderate Amount STAPHYLOCOCCUS HAEMOLYTICUS Release Date/Time: 0 09/23/2015 07:56 Sensitivity #1: STAHAE AMPICILLIN > 8 R AMOX CLAV <=4/2 R CLINDAMYCIN <= 0.5S CEFAZOLIN > 16R CIPROFLOXACIN > 2 R DAPTOMYCIN 1 S ERYTHROMYCIN > 4 R GENTAMICIN > 8 R AMPICILLIN SULBACTAM <=8 /4 R LEVOFLOXACIN > 4 R LINEZOLID <= 1S MOXIFLOXACIN 2 S OXACILLIN > 2 R PENICILLIN > 8 R RIFAMPIN <= 1S TRIMETHSULFA >2/38 R TETRACYCLINE > 8 R VANCOMYCIN 2 S Wound Culture Plate Date and Time 09/20/2015 20:01 SourceBUTTOCKS CULTURE REPORT No Growth After 24 Hours Release Date/Time: 0 09/21/2015 07:26 CULTURE REPORT Small Amount Staphylococcus SpeciesID & Sensitivity to follow Release Date/Time: 0 09/22/2015 10:18 GRAM STAIN No Organisms Seen. Release Date/Time: 0 09/21/2015 09:31 ORGID #1: Small Amount STAPHYLOCOCCUS HAEMOLYTICUS Release Date/Time: 0 09/23/2015 07:58 Sensitivity #1: STAHAE AMPICILLIN > 8 R AMOX CLAV>4/2R CLINDAMYCIN 1 I CEFAZOLIN > 16R CIPROFLOXACIN > 2 R DAPTOMYCIN <= 0.5S ERYTHROMYCIN > 4 R GENTAMICIN > 8 R AMPICILLIN SULBACTAM <=8 /4 R LEVOFLOXACIN > 4 R LINEZOLID <= 1S MOXIFLOXACIN 2 S OXACILLIN > 2 R PENICILLIN > 8 R RIFAMPIN <= 1S TRIMETHSULFA >2/38 R TETRACYCLINE > 8 R VANCOMYCIN 2 S Wound Culture Plate Date and Time 09/20/2015 20:01 [facility] Growth After 24 Hours Release Date/Time: 0 09/21/2015 07:27 CULTURE REPORT Small Amount Staphylococcus SpeciesID & Sensitivity to follow Release Date/Time: 0 09/22/2015 10:25 GRAM STAIN No Organisms Seen. Release Date/Time: 0 09/21/2015 09:31 ORGID #1: Small Amount STAPHYLOCOCCUS HAEMOLYTICUS Release Date/Time: 0 09/23/2015 11:49 Sensitivity #1: STAHAE AMPICILLIN > 8 R AMOX CLAV>4/2R CLINDAMYCIN <= 0.5S CEFAZOLIN > 16R CIPROFLOXACIN > 2 R DAPTOMYCIN <= 0.5S ERYTHROMYCIN > 4 R GENTAMICIN > 8 R AMPICILLIN SULBACTAM <=8 /4 R LEVOFLOXACIN > 4 R LINEZOLID <= 1S MOXIFLOXACIN > 4 R OXACILLIN > 2 R PENICILLIN > 8 R RIFAMPIN <= 1S TRIMETHSULFA >2/38 R TETRACYCLINE > 8 R VANCOMYCIN 2 S Wound Culture Plate Date and Time 09/20/2015 20:01 [facility] CULTURE REPORT No Growth After 24 Hours Release Date/Time: 0 09/21/2015 07:27 CULTURE REPORT No Growth After 48 Hours Release Date/Time: 0 09/22/2015 07:38 GRAM STAIN No Organisms Seen. Release Date/Time: 0 09/21/2015 09:30 Wound Culture Plate Date and Time 09/20/2015 20:01 [facility] CULTURE REPORT No Growth After 24 Hours Release Date/Time: 0 09/21/2015 07:28 CULTURE REPORT Small Amount Staphylococcus Species ID & Sensitivity to follow Release Date/Time: 0 09/22/2015 10:22 GRAM STAIN No Organisms Seen. Release Date/Time: 0 09/21/2015 09:31 ORGID #1: Small Amount STAPHYLOCOCCUS HAEMOLYTICUS Release Date/Time: 0 09/23/2015 07:57 Sensitivity #1: STAHAE AMPICILLIN > 8 R AMOX CLAV>4/2R CLINDAMYCIN <= 0.5S CEFAZOLIN > 16R CIPROFLOXACIN > 2 R DAPTOMYCIN <= 0.5S ERYTHROMYCIN > 4 R GENTAMICIN > 8 R AMPICILLIN SULBACTAM <=8 /4 R LEVOFLOXACIN > 4 R LINEZOLID <= 1S MOXIFLOXACIN 2 S OXACILLIN > 2 R PENICILLIN > 8 R RIFAMPIN <= 1S TRIMETHSULFA >2/38 R TETRACYCLINE > 8 R VANCOMYCIN 2 S Wound Culture Plate Date and Time 09/20/2015 20:01 SourceCHEST CULTURE REPORT No Growth After 24 Hours Release Date/Time: 0 09/21/2015 07:29 CULTURE REPORT No Growth After 48 Hours Release Date/Time: 0 09/22/2015 07:46 GRAM STAIN No Organisms Seen. Release Date/Time: 0 09/21/2015 09:31 [id number]:00 Urine Culture Plate Date and Time 09/20/2015 18:56 SourceURINE CULTURE REPORT 50,000 colonies/ml Gram Negative Rods ID & Sensitivity to follow Release Date/Time: 0 09/21/2015 07:33 ORGID #1: 50,000 colonies/ml ESBL POS E.COLI Release Date/Time: 0 09/22/2015 07:59 Sensitivity #1: ESBL+ E COLI AMPICILLIN > 16R AMOX CLAV <=8/4 S CEFTRIAXONE > 32R CEFTAZIDIME 8 R CEFOTAXIME > 32R CIPROFLOXACIN > 2 R CEFEPIME > 16R CEFUROXIME > 16R ERTAPENEM <= 0.5S GENTAMICIN <= 2S AMPICILLIN SULBACTAM <=8 /4 S IMIPENEM <= 1S LEVOFLOXACIN > 4 R MEROPENEM <= 1S TRIMETHSULFA >2/38 R TETRACYCLINE <= 4S Chemistry [id number]:55:00 Result Normal Range Units Sodium 138 134-145 mEq/l Potassium 4.0 3.5-5.1 mEq/l Chloride 105 98-107 mEq/l CO2 25.5 22-28 mEq/l Glucose 87 70-105 mg/dl BUN L 4 7-18 mg/dl Creatinine L 0.58 0.6-1.0 mg/dl Calcium L 7.9 8.4-10.2 mg/dl Osmolality L 271.9 280-300 mOsm/L Anion GAP L 7.5 8-16 BUN/Creatinine Ratio L 6.9 10-20 Estimated GFR 127 >= 60 mL/min /1.7 [id number]:30:00 Result Normal Range Units Sodium 140 134-145 mEq/l Potassium 3.8 3.5-5.1 mEq/l Chloride 107 98-107 mEq/l CO2 23.3 22-28 mEq/l Glucose H 139 70-105 mg/dl BUN L 6 7-18 mg/dl Creatinine 0.61 0.6-1.0 mg/dl Calcium L 7.8 8.4-10.2 mg/dl Osmolality L 279.3 280-300 mOsm/L Anion GAP 9.7 8-16 BUN/Creatinine Ratio L 9.8 10-20 Estimated GFR 120 >= 60 mL/min /1.7 [id number]:50:00 Result Normal Range Units Sodium 138 134-145 mEq/l Potassium 4.1 3.5-5.1 mEq/l Chloride 104 98-107 mEq/l CO2 23.5 22-28 mEq/l Glucose 97 70-105 mg/dl BUN L 5 7-18 mg/dl Creatinine L 0.52 0.6-1.0 mg/dl Calcium L 8.1 8.4-10.2 mg/dl TP - Total Protein 7.3 6.0-8.3 g /dl Albumin 3.6 3.5-5 g/dl Bilirubin - Total 0.2 0.1-1.0 mg /dl AST 23 10-42 IU/L ALT 42 12-65 IU/L ALP 59 25-72 IU/L Osmolality L 272.9 280-300 mOsm/L Albumin/Globulin Ratio 1.0 0-8 Anion GAP 10.5 8-16 BUN/Creatinine Ratio L 9.6 10-20 Estimated GFR 144 >= 60 mL/min /1.7 Hematology [id number]:55:00 Result Normal Range Units WBC 9.1 4.8-10.8 103/uL RBC 4.9 4.2-5.4 106/uL HGB 13.7 12.0-16.0 g/dl HCT 41.8 36.9-47.0 % MCV 86.0 81-99 FL MCH 28.2 27-31 pg MCHC L 32.8 33-37 g/dl RDW 12.0 11.5-15.5 % PLT 271 130-400 103/uL MPV 9.0 7.3-10.4 FL Segs 68.0 40-70 % Bands 3.0 0-5 % Lymphs 27.0 20-40 % Yates 2.0 0-10 % [id number]:30:00 Result Normal Range Units WBC 6.1 4.8-10.8 103/uL RBC 4.7 4.2-5.4 106/uL HGB 13.3 12.0-16.0 g/dl HCT 41.7 36.9-47.0 % MCV 88.5 81-99 FL MCH 28.2 27-31 pg MCHC L 31.9 33-37 g/dl RDW 12.3 11.5-15.5 % PLT 294 130-400 103/uL MPV 9.2 7.3-10.4 FL Segs 40.0 40-70 % Result successfully called to 2F on 09/21 at 07:16 by TIO. TO KATHY Lymphs H 47.0 20-40 % Result successfully called to 2F on 09/21 at 07:16 by TIO. TO KATHY Yates 4.0 0-10 % Result successfully called to 2F on 09/21 at 07:16 by TIO. TO KATHY Eos 2.0 0-7 % Result successfully called to 2F on 09/21 at 07:16 by TIO. TO KATHY Atypical Lymphs H@ 7.0 0-5 % Result successfully called to 2F on 09/21 at 07:16 by TIO. TO KATHY [id number]:30:00 Result Normal Range Units WBC 8.0 4.8-10.8 103/uL RBC 4.9 4.2-5.4 106/uL HGB 13.8 12.0-16.0 g/dl HCT 41.7 36.9-47.0 % MCV 85.8 81-99 FL MCH 28.4 27-31 pg MCHC 33.1 33-37 g/dl RDW 13.0 11.5-15.5 % PLT 317 130-400 103/uL MPV 9.0 7.3-10.4 FL Segs 42.0 40-70 % Bands 1.0 0-5 % Lymphs 37.0 20-40 % Yates 9.0 0-10 % Eos 6.0 0-7 % Baso 1.0 0-2 % Atypical Lymphs 4.0 0-5 % [id number]:50:00 Result Normal Range Units WBC 9.5 4.8-10.8 103/uL RBC 5.1 4.2-5.4 106/uL HGB 14.7 12.0-16.0 g/dl HCT 42.2 36.9-47.0 % MCV 83.4 81-99 FL MCH 29.1 27-31 pg MCHC 34.8 33-37 g/dl RDW 12.9 11.5-15.5 % PLT 317 130-400 103/uL MPV 9.1 7.3-10.4 FL Segs H 72.0 40-70 % Bands H 6.0 0-5 % Lymphs L 11.0 20-40 % Yates 8.0 0-10 % Eos 1.0 0-7 % Baso 2.0 0-2 % Body Fluid :50:00 Result Normal Range Units pH 7.5 4.5-8.0 Radiology Results :55:00 Result Normal Range Units MPV 9.0 7.3-10.4 FL :30:00 Result Normal Range Units MPV 9.2 7.3-10.4 FL :30:00 Result Normal Range Units MPV 9.0 7.3-10.4 FL :50:00 Result Normal Range Units MPV 9.1 7.3-10.4 FL History of procedures No procedures recorded for this patient visit. Functional status Functional Status Finding Observation Time Hearing Prob Loc none :04 Vision Problems yes :04 Vision Correct Dev glasses :04 Ambulation Asst Dev none :04 Range of Motion full :00 Muscle Strength RUE 5 ROM full resist :00 Muscle Strength RLE 5 ROM full resist :00 Muscle Strength LUE 5 ROM full resist :00 Muscle Strength LLE 5 ROM full resist :00 Transfers independent :00 Ambulation up ad hernandez :00 Balance steady :00 Bathing Assistance none 97-09-937153:04 Eating Assistance none :04 Dressing Assistance none :04 Toileting Assistance none :04 Transfer Assistance none :04 Decline Slf Care/Mob no :04 Phys Cond Stable yes :04 Nutrition normal :00 Diet regular : Oral Cavity moist and intact : Teeth none : Dental Hygiene poor : Abdomen Appearance obese :00 Abdomen soft : Bowel Sounds present :00 NG Tube no : Feeding Tube none : Ramírez no :00 Cont Bladder Irr no :00 Ostomy no : Stool other (specify) Comment: normal per pt : Color bloody Comment: Per patient report, did not visualize :46 Consistency hard :46 Urination normal :00 Urine Clarity clear : Urine Color yellow :00 Quality sym/unlabored :00 Cough absent : Secretions no :00 Breath Sounds RUL clear :00 Breath Sounds RML clear :00 Breath Sounds RLL clear :00 Breath Sounds SARA clear :00 Breath Sounds LLL clear :00 Airway natural :00 Chest Tube no :00 Oxygen no :38 C-PAP no :00 BI-PAP no :00 New Infection wound infection :00 Temp >100.4 no :00 Temp <96.8 no :00 Chills with rigors no :00 HR > 90bpm no :00 Respirations > 20 no : Systolic <90 no : headache stiff neck no : WBC > 83095 no : WBC < 4000 no :00 IV Site Location right AC :09 IV Type peripheral :09 IV Site Information existing :09 IV Site Start Attmpt 1 times [id number]:54 IV Site Isael 22 :09 IV Site Appearance WNL :09 IV Site Color clear : IV Site Patent yes :09 Dressing Changed no (explain) Comment: CDI :09 Dressing Type occlusive :09 Nursing Note Discharge instructions given , IV site remains intake covered in coban. pt on discharged is stable and vital signs within normal limits. no signs of distress noted :22 Cognitive Status Finding Observation Time Oriented To Date 5 Yes :[address] 5 Yes :04 Name 3 Objects 3 Yes :04 Name Object in Rm 2 Yes [id number]:04 Recall 3 Objects 3 Yes :04 Repeats a Phrase 1 Yes :04 Follows Verbal Direc 3 Yes :04 Follows Written Dire 1 Yes :04 Write a Sentance 1 Yes :04 Draw an Object 1 Yes 13-00-083225:04 Mini Mental Total 25 points :04 Less than 20 Phys not applicable 94-17-992739:04 Learning Ability comprehends well : Neurological no :00 Psychological no :00 Physical no :00 Hearing no :00 Multimedia Designer Needed no :00 Sign Language no :00 Emotional no 99-88-846866:00 Vision yes :00 Laguage no :00 Financial no :00 Vital signs Type Value Date Respiration Rate 18breaths per minute : 38 Pulse 78beats per minute :38 Oxygen Saturation 96% :38 BP Systolic 157mmHg :38 BP Diastolic 96mmHg :38 Temperature 98.3F :38 Height 64inches :14 Weight 240LB :14 Social history Type Value Smoking Status CURRENT EVERY DAY SMOKER Treatment Plan No treatment plan text is available for this visit. Hospital discharge instructions Discharge Date/Time 09/24/2015 1522 Accompanied By Justin Carrillo spouse/signif other Dismissal Condition good Disposition on DC home Valuables yes Valuable Type other (specify) Comment: phone, cloths, purse Valuables Returned T patient DC Inst/Educ Give yes Exit Care Educ Given yes Med/Side Effects Rev yes Immun Indicated no PNE Vac never Vaccines Ord Given no Flu Vac 2014 Tetanus Vac 06/2013 Medical Equipment dressing supplies Diet Explained yes Follow up appt already scheduled Follow Up Appt D/T 09/27/15 3825
--- OUTSIDE RECORDS SUMMARY | 2020-01-18 15:30 | XMS REPORT ---
Author Author [facility] Medic al Staff, TOMY Rashid Organization [facility] Address [address] [place], [place] [address] Phone [phone] Care Team Providers Care Electronics Computer Mechanic Name Role Phone CAROLEE WHITE MD PP [phone] CAROLEE WHITE MD PP [phone] Summary purpose TRANSITION OF CARE AUTO GENERATION Chief Complaint and Reason for Visit Admit Diagnosis 1 HYDRANITIS CHEST RIGHT POST ERIOR LEG Admit Diagnosis 2 AND PERNIUM Problem list No authorized problems tracked for [...] Finding Observation Time Hearing Prob Loc none 64-09-847043:39 Vision Problems yes 00-86-188608:39 Vision Correct Dev glasses 29-24-096810:39 Ambulation Asst Dev none 95-67-198243:39 Range of Motion full :35 Muscle Strength RUE 5 ROM full resist 91-61-449671:35 Muscle Strength RLE 5 ROM full resist 74-90-653365:35 Muscle Strength LUE 5 ROM full resist :35 Muscle Strength LLE 5 ROM full resist :35 Transfers independent :35 Ambulation in room :35 Balance steady :35 Bathing Assistance none :39 Eating Assistance none :39 Dressing Assistance none :39 Toileting Assistance none :39 Transfer Assistance none :39 Decline Slf Care/Mob no :39 Phys Cond Stable yes :39 Nutrition normal :35 Diet regular :35 Oral Cavity moist and intact :35 Teeth none :35 Dental Hygiene good :35 Abdomen Appearance obese :35 Abdomen soft :35 Bowel Sounds present :35 NG Tube no :35 Feeding Tube none :35 Ramírez no :35 Cont Bladder Irr no :35 Ostomy no :35 Stool normal Comment: per pt report :35 Urination normal Comment: per pt report :35 Quality sym/unlabored :35 Cough absent :35 Secretions no :35 Breath Sounds RUL clear :35 Breath Sounds RML clear :35 Breath Sounds RLL clear :35 Breath Sounds SARA clear :35 Breath Sounds LLL clear :35 Airway natural :35 Chest Tube no :35 Oxygen no :20 C-PAP no :35 BI-PAP no :35 Temp >100.4 no :35 Temp <96.8 no :35 Chills with rigors no :35 HR > 90bpm no :35 Respirations > 20 no :35 Systolic <90 no :35 headache stiff neck no :35 IV Site Location R hand :15 IV Type peripheral :15 IV Site Information discontinued :15 IV Site Start Attmpt 4 times :30 IV Site Isael 20 :35 IV Site Appearance WNL :35 IV Site Color clear :35 IV Site Patent yes :35 Dressing Changed yes : Dressing Type occlusive :35 Nursing Note Pt states pain is now "6" on 1-10 scale.Other assessment unchanged. Dismissed per w/c in good condition accompanied by and RN. :25 Cognitive Status Finding Observation Time Learning Ability comprehends well :20 Neurological no 11-80-599441:20 Psychological no 87-03-151137:20 Physical no 46-34-219392:20 Hearing no :20 Aircraft Engine Cylinder Mechanic Needed no :20 Sign Language no :20 Emotional no :20 Vision no :20 Laguage no :20 Financial no :20 Vital signs Type Value Date Respiration Rate 18breaths per minute : 20 Pulse 90beats per minute :20 Oxygen Saturation 96% :20 BP Systolic 149mmHg :20 BP Diastolic 85mmHg :20 Temperature 97.2F :58 Height 63inches :35 Weight 227LB :35 Social history Type Value Smoking Status CURRENT EVERY DAY SMOKER Treatment Plan No treatment plan text is available for this visit. Hospital discharge instructions Discharge Date/Time 08-12-15 1325 Accompanied By Justin Lorena spouse/signif other Dismissal Condition good Disposition on DC home Valuables no DC Inst/Educ Give yes Exit Care Educ Given yes Med/Side Effects Rev yes PNE Vac never Flu Vac 04/2015 Tetanus Vac 06/2013 Medical Equipment dressings Diet Explained yes Follow up appt appt made (specify) Comment: to see Dr Dong on Aug 19, 2015 at 2 pm at [facility] Follow Up Appt D/T 08-19-15 2 pm
--- OUTSIDE RECORDS SUMMARY | 2020-01-18 15:30 | XMS REPORT ---
Author Author [facility] Medic al Staff, TOMY Rashid Organization [facility] Address [address] [place], [place] [address] Phone [phone] Care Team Providers Care Demand Equipment Repairer Name Role Phone CAROLEE WHITE MD PP [phone] Summary purpose TRANSITION OF CARE AUTO GENERATION [...] Status Finding Observation Time Abdomen Appearance obese 52-52-097803:10 Abdomen soft 92-75-458041:10 Bowel Sounds present 10-85-245390:10 Ramírez no 57-57-077720:10 Urination normal 72-72-316732:10 Quality sym/unlabored 56-99-815572:10 Cough absent 27-94-207315:10 Secretions no 49-41-399295:10 Breath Sounds RUL clear 16-28-412713:10 Breath Sounds RML clear 90-62-722235:10 Breath Sounds RLL clear 56-67-340018:10 Breath Sounds SARA clear 57-33-006321:10 Breath Sounds LLL clear 51-40-480561:10 Airway natural 25-40-867310:10 Chest Tube no 86-22-651081:10 Oxygen no :13 Temp >100.4 no :10 Temp <96.8 no :10 Chills with rigors no 64-63-042339:10 HR > 90bpm no :10 Respirations > 20 no :10 Systolic <90 no :10 headache stiff neck no :10 Rapid Resp no 26-57-853541:10 IV Site Location Right hand 89-21-169908:40 IV Type peripheral :40 IV Site Information new :40 IV Site Start Attmpt 1 times 32-57-861467:40 IV Site Isael 20 07-79-331324:40 IV Site Appearance WNL 90-88-823777:40 IV Site Color clear 03-49-190757:40 IV Site Patent no 39-49-310014:39 Dressing Changed yes 84-14-017099:40 Dressing Type occlusive 68-05-785916:40 Nursing Note VSS. Dsicahrge instructions reviewed/ Pt verbalizes understanding. Denies needs, questions, or concerns. Discharge instructions signed et copy to pt. SL left in place, Pt heading to OBS for infusion. Pt discharged in good, stable condition :13 Vital signs Type Value Date Respiration Rate 18breaths per minute : 13 Pulse 86beats per minute :13 Oxygen Saturation 98% :13 BP Systolic 121mmHg :13 BP Diastolic 75mmHg 37-77-202081:13 Temperature 97.9F :13 Social history Type Value Smoking Status CURRENT EVERY DAY SMOKER Treatment Plan No treatment plan text is available for this visit. Hospital discharge instructions Dismissal Condition good Disposition on DC home DC Inst/Educ Give yes Med/Side Effects Rev yes PNE Vac none Flu Vac 2014 Tetanus Vac current
--- OUTSIDE RECORDS SUMMARY | 2020-01-18 15:30 | XMS REPORT ---
Author Author [facility] Medic al Staff, TOMY Rashid Organization [facility] Address [address] [place], [place] [address] Phone [phone] Care Team Providers Care Thickener Operator Name Role Phone CHRISTOPHER YORK, CAROLEE PP [phone] Summary purpose TRANSITION OF CARE AUTO GENERATION [...] Time Diet regular :10 Abdomen Appearance obese 26-98-938967:10 Abdomen soft 41-99-456332:10 Bowel Sounds present :10 Urination normal :10 Quality sym/unlabored :10 Cough absent :10 Secretions no :10 Airway natural :10 Chest Tube no :10 Oxygen no :35 Temp >100.4 no :10 Temp <96.8 no 71-91-031523:10 Chills with rigors no 03-21-292675:10 HR > 90bpm no :10 Respirations > [...]
--- OUTSIDE RECORDS SUMMARY | 2020-01-18 15:30 | XMS REPORT ---
Author Author [facility] Medic al Staff, TOMY Rashid Organization [facility] Address [address] [place], [place] [address] Phone [phone] Care Team Providers Care Php Website Developer Name Role Phone CHRISTOPHER YORK, CAROLEE PP [phone] Summary purpose TRANSITION OF CARE AUTO GENERATION [...]
--- OUTSIDE RECORDS SUMMARY | 2020-01-18 15:30 | XMS REPORT ---
Author Author [facility] Medic al Staff, TOMY Rashid Organization [facility] Address [address], [place] [address] Phone [phone] Care Team Providers Care Manufacturing Business Analyst Name Role Phone CAROLEE WHITE MD PP [phone] CAROLEE WHITE MD PP [phone] Summary purpose TRANSITION OF CARE AUTO GENERATION Chief Complaint and Reason for Visit Admit Diagnosis 1 E/O RECURRENT PILONIDAL CYST Problem list No authorized problems tracked for [...] Finding Observation Time Hearing Prob Loc none :32 Vision Problems yes :32 Vision Correct Dev glasses :32 Ambulation Asst Dev none :32 Range of Motion full :49 Muscle Strength RUE 5 ROM full resist :49 Muscle Strength RLE 5 ROM full resist :49 Muscle Strength LUE 5 ROM full resist :49 Muscle Strength LLE 5 ROM full resist :49 Transfers independent 60-39-892664:49 Ambulation up ad hernandez :49 Balance steady :49 Bathing Assistance none :32 Eating Assistance none :32 Dressing Assistance none :32 Toileting Assistance none :32 Transfer Assistance none :32 Decline Slf Care/Mob no :32 Phys Cond Stable yes :32 Nutrition normal :49 Diet regular :49 Oral Cavity moist and intact :49 Teeth dentures :49 Dental Hygiene good :49 Abdomen Appearance obese :49 Abdomen soft :49 Bowel Sounds present :49 NG Tube no :49 Feeding Tube none :49 Ramírez no :49 Cont Bladder Irr no :49 Ostomy no :49 Stool normal :49 Urination normal :49 Quality sym/unlabored :49 Cough absent :49 Secretions no :49 Breath Sounds RUL clear :49 Breath Sounds RML clear :49 Breath Sounds RLL clear :49 Breath Sounds SARA clear :49 Breath Sounds LLL clear :49 Airway natural :49 Chest Tube no :49 Oxygen no :16 C-PAP no :49 BI-PAP no :49 Temp >100.4 no :49 Temp <96.8 no :49 Chills with rigors no :49 HR > 90bpm no :49 Respirations > 20 no :49 Systolic <90 no :49 headache stiff neck no :49 Rapid Resp no :49 IV Site Location R hand : IV Type peripheral : IV Site Information discontinued : IV Site Start Attmpt 1 times :05 IV Site Isael 18 : IV Site Appearance WNL : IV Site Color clear : IV Site Patent yes : Dressing Type occlusive : Nursing Note I called et let hi m know of the pts' motherLio concerns. :50 Cognitive Status Finding Observation Time Learning Ability comprehends well :40 Neurological no :40 Psychological no :40 Physical no :40 Hearing no :40 Plug Saw Operator Needed no :40 Sign Language no :40 Emotional no :40 Vision yes :40 Laguage no :40 Financial no :40 Vital signs Type Value Date Respiration Rate 18breaths per minute : Pulse 79beats per minute : Oxygen Saturation 98% :16 BP Systolic 138mmHg :16 BP Diastolic 76mmHg :16 Temperature 98.1F :46 Height 63inches :48 Weight 220LB :48 Social history Type Value Smoking Status CURRENT EVERY DAY SMOKER Treatment Plan No treatment plan text is available for this visit. Hospital discharge instructions Discharge Date/Time 04/29/15 0045 Relationship other (explain) Comment: grandma Dismissal Condition good Comment: pt tearful Disposition on DC home Valuables no Valuable Type jewelry (describe) Comment: 1 nose ring, 2 nipple rings, 1 cell phone DC Inst/Educ Give yes Exit Care Educ Given yes Med/Side Effects Rev yes PNE Vac never Flu Vac 04/2014 Tetanus Vac 06/2013 Diet Explained yes Follow up appt other (specify)
--- OUTSIDE RECORDS SUMMARY | 2020-01-18 15:30 | XMS REPORT ---
Author Author [facility] Medic al Staff, TOMY Rashid Organization [facility] Address [address] [place], [place] [address] Phone [phone] Care Team Providers Care Patient Observer Name Role Phone CAROLEE WHITE MD PP [phone] Summary purpose TRANSITION OF CARE AUTO GENERATION Chief Complaint and Reason for Visit Admit Diagnosis 1 HEADACHE Problem list No authorized problems tracked for [...] Code Type Description Date Performed Performing Physician 66359 CPT-4 EMERGENCY DEPT VISIT 12-21-2014 RADHA EATON 33672 CPT-4 EMERGENCY DEPT VISIT 12-21-2014 RADHA EATON 49598 CPT-4 THER/PROPH/DIAG INJ, IV PUSH 12-21-2014 RADHA EATON 63470 CPT-4 TX/PRO/DX INJ NEW DRUG ADDON 12-21-2014 RADHA EATON J2405 CPT-4 ONDANSETRON HCL INJECTION 12-21-2014 RADHA EATON J2270 CPT-4 MORPHINE SULFATE INJECTION 12-21-2014 RADHA EATON Functional status Functional Status Finding Observation Time Diet regular 27-41-677324:20 Abdomen Appearance obese 93-96-870362:20 Abdomen soft 50-47-408918:20 Bowel Sounds present 10-80-448533:20 Ramírez no :20 Urination normal :20 Quality sym/unlabored :20 Cough absent :20 Secretions no :20 Breath Sounds RUL clear :20 Breath Sounds RML clear :20 Breath Sounds RLL clear :20 Breath Sounds SARA clear : Breath Sounds LLL clear :20 Airway natural :20 Chest Tube no :20 Oxygen no :55 IV Site Location L AC :10 IV Type peripheral :10 IV Site Information existing :10 IV Site Isael 20 :10 IV Site Appearance WNL :10 IV Site Color clear :10 IV Site Patent yes :10 Dressing Type occlusive :10 Nursing Note Discharged from ER. Patient will go to observation to get her infusion at this time. :00 Vital signs Type Value Date Respiration Rate 20breaths per minute : 55 Pulse 80beats per minute : Oxygen Saturation 98% :55 BP Systolic 140mmHg :55 BP Diastolic 68mmHg :55 Temperature 98.4F :55 Height 65inches :15 Weight 225LB :15 Social history Type Value Smoking Status CURRENT EVERY DAY SMOKER Treatment Plan No treatment plan text is available for this visit. Hospital discharge instructions Dismissal Condition good Disposition on DC home DC Inst/Educ Give yes Med/Side Effects Rev yes PNE Vac none Flu Vac 2014 Tetanus Vac current
--- OUTSIDE RECORDS SUMMARY | 2020-01-18 15:30 | XMS REPORT ---
Author Author [facility] Medic al Staff, TOMY Rashid Organization [facility] Address [address] [place], [place] [address] Phone [phone] Care Team Providers Care Certified Flex Endoscope Reprocessor Name Role Phone CAROLEE WHITE MD PP [phone] Summary purpose TRANSITION OF CARE AUTO GENERATION [...] Functional Status Finding Observation Time Diet regular :45 Abdomen Appearance obese :45 Abdomen soft :45 Ramírez no :45 Urination normal :45 Quality sym/unlabored :45 Cough absent :45 Secretions no :45 Airway natural :45 Chest Tube no :45 Oxygen no :50 Temp >100.4 no :45 Temp <96.8 no :45 Chills with rigors no :45 HR > 90bpm no :45 Respirations > 20 no :45 Systolic <90 no :45 headache stiff neck no :45 Vital signs Type Value Date Respiration Rate 20breaths per minute : 50 Pulse 95beats per minute :50 Oxygen Saturation 98% :50 BP Systolic 141mmHg :50 BP Diastolic 72mmHg :50 Temperature 99.1F :50 Social history Type Value Smoking Status CURRENT EVERY DAY SMOKER Treatment Plan No treatment plan text is available for this visit. Hospital discharge instructions Dismissal Condition good Disposition on DC home DC Inst/Educ Give yes Med/Side Effects Rev yes Flu Vac 2013
--- OUTSIDE RECORDS SUMMARY | 2020-01-18 15:30 | XMS REPORT ---
Author Author [facility] Medic al Staff, TOMY Rashid Organization [facility] Address [address] [place], [place] [address] Phone [phone] Care Team Providers Care Plaster Caster Name Role Phone CHRISTOPHER YORK, CAROLEE PP [phone] Summary purpose TRANSITION OF CARE AUTO GENERATION [...] Functional Status Finding Observation Time Diet regular :20 Abdomen Appearance obese :20 Abdomen soft :20 Ramírez no :20 Urination normal :20 Quality sym/unlabored :20 Cough absent :20 Secretions no :20 Airway natural :20 Chest Tube no :20 Oxygen no :34 Temp >100.4 no :20 Temp <96.8 no :20 Chills with rigors no : HR > 90bpm no :20 Respirations > 20 no :20 Systolic <90 no : headache stiff neck no :20 Rapid Resp no :07 Nursing Note Dismissal instructions et Rx given to et explained to pt, pt verbalized understanding. Pt left unit amb. :35 Vital signs Type Value Date Respiration Rate 18breaths per minute : 34 Pulse 91beats per minute :34 Oxygen Saturation 98% :34 BP Systolic 127mmHg :34 BP Diastolic 84mmHg :34 Temperature 97.6F :34 Social history Type Value Smoking Status CURRENT EVERY DAY SMOKER Treatment Plan No treatment plan text is available for this visit. Hospital discharge instructions Dismissal Condition good Disposition on DC home DC Inst/Educ Give yes Med/Side Effects Rev yes PNE Vac none Flu Vac 2015 Tetanus Vac current
--- OUTSIDE RECORDS SUMMARY | 2020-01-18 15:30 | XMS REPORT ---
Author Author [facility] Medic al Staff, TOMY Rashid Organization [facility] Address [address] [place], [place] [address] Phone [phone] Care Team Providers Care Box Maker Name Role Phone SILVANA MENON MD PP [phone] Summary purpose TRANSITION OF CARE AUTO GENERATION [...] Code Type Description Date Performed Performing Physician 41552 CPT-4 EMERGENCY DEPT VISIT 01-12-[place] [address] CPT-4 EMERGENCY DEPT VISIT 01-12-2016 RADHA AN Functional status Functional Status Finding Observation Time Muscle Strength RLE 4 ROM slight resist :10 Abdomen Appearance obese :10 Abdomen non-tender :10 Ramírez no :10 Urination normal :10 Quality sym/unlabored :10 Cough absent :10 Secretions no :10 Airway natural :10 Chest Tube no :10 Oxygen no :10 Temp >100.4 no :10 Temp <96.8 no :10 Chills with rigors no : HR > 90bpm no :10 Respirations > 20 no : Systolic <90 no :10 headache stiff neck no :10 Nursing Note DC instructions given to pt. Voiced understanding. She advised she will call Izaiah Leahy PAC in the morning. VS assessed. Pt ambulated off unit with crutches. Registration notified. :15 Vital signs Type Value Date Respiration Rate 18breaths per minute : 10 Pulse 97beats per minute :10 Oxygen Saturation 99% :10 BP Systolic 147mmHg :10 BP Diastolic 88mmHg :10 Temperature 98.7F :10 Height 63inches :05 Weight 230LB :05 Social history Type Value Smoking Status CURRENT EVERY DAY SMOKER Treatment Plan No treatment plan text is available for this visit. Hospital discharge instructions Dismissal Condition good Disposition on DC home DC Inst/Educ Give yes Med/Side Effects Rev yes PNE Vac none Flu Vac 2014 Tetanus Vac 2012
--- OUTSIDE RECORDS SUMMARY | 2020-01-18 15:31 | XMS REPORT ---
Author Author [facility] Medic al Staff, TOMY Rashid Organization [facility] Address [address], [place] [address] Phone [phone] Care Team Providers Care Central Office Operator Name Role Phone CHRISTOPHER YORK, CAROLEE PP [phone] CAROLEE WHITE MD PP [phone] Summary purpose TRANSITION OF CARE AUTO GENERATION Chief Complaint and Reason for Visit Admit Diagnosis 1 E/O BUTTOCK HIDRADENITIS Problem list No authorized problems tracked [...] Finding Observation Time Hearing Prob Loc none :22 Vision Problems yes :22 Vision Correct Dev glasses :22 Ambulation Asst Dev none :22 Range of Motion full :09 Muscle Strength RUE 5 ROM full resist 16-70-347079:09 Muscle Strength RLE 5 ROM full resist :09 Muscle Strength LUE 5 ROM full resist :09 Muscle Strength LLE 5 ROM full resist :09 Transfers assist x 1 :09 Ambulation in room :09 Balance steady :09 Bathing Assistance none : Eating Assistance none :22 Dressing Assistance none :22 Toileting Assistance none : Transfer Assistance none : Decline Slf Care/Mob no :22 Phys Cond Stable yes :22 Nutrition normal :09 Diet regular :09 Oral Cavity moist and intact :09 Teeth dentures :09 Dental Hygiene good :09 Abdomen Appearance obese :09 Abdomen soft :09 Bowel Sounds present :09 NG Tube no :09 Feeding Tube none :09 Ramírez no :09 Cont Bladder Irr no :09 Ostomy no :09 Stool normal :09 Urination normal :09 Quality sym/unlabored :09 Cough absent :09 Secretions no :09 Breath Sounds RUL clear :09 Breath Sounds RML clear :09 Breath Sounds RLL clear :09 Breath Sounds SARA clear :09 Breath Sounds LLL clear :09 Airway natural :09 Chest Tube no :09 Oxygen no :45 C-PAP no :09 BI-PAP no :09 Temp >100.4 no :09 Temp <96.8 no :09 Chills with rigors no :09 HR > 90bpm no :09 Respirations > 20 no :09 Systolic <90 no :09 headache stiff neck no :09 Rapid Resp no :09 IV Site Location Right AC :45 IV Type peripheral :45 IV Site Information discontinued :45 IV Site Start Attmpt 4 times :05 IV Site Isael 20 :06 IV Site Appearance WNL :06 IV Site Color clear :06 IV Site Patent yes :06 Dressing Changed yes :45 Dressing Type gauze :45 Nursing Note Pt came to the er d/t rednes s et hardening around the incision. She states she was given an antibiotic. :01 Cognitive Status Finding Observation Time Learning Ability comprehends well :55 Neurological no :55 Psychological no :55 Physical no :55 Hearing no :55 Sld Inclusion Teacher Needed no :55 Sign Language no :55 Emotional no :55 Vision no :55 Laguage no :55 Financial no :55 Vital signs Type Value Date Respiration Rate 16breaths per minute : 45 Pulse 87beats per minute :45 Oxygen Saturation 98% :45 BP Systolic 111mmHg :45 BP Diastolic 76mmHg :45 Temperature 97.6F :00 Height 63inches :12 Weight 227LB :12 Social history Type Value Smoking Status CURRENT EVERY DAY SMOKER Treatment Plan No treatment plan text is available for this visit. Hospital discharge instructions Discharge Date/Time 06/30/15 1500 Accompanied By Ebony Carrillo parent Dismissal Condition good Disposition on DC home Valuables yes Valuable Type billfold/purse Valuables Returned T patient DC Inst/Educ Give yes Exit Care Educ Given yes PNE Vac never Flu Vac 04/2014 Tetanus Vac 06/2013 Medical Equipment none Diet Explained yes Follow up appt already scheduled Follow Up Appt D/T 07/08/15 3573
--- OUTSIDE RECORDS SUMMARY | 2020-01-18 15:31 | XMS REPORT ---
Author Author [facility] Medic al Staff, TOMY Rashid Organization [facility] Address [address] [place], [place] [address] Phone [phone] Care Team Providers Care Catering Manager Name Role Phone CAROLEE WHITE MD PP [phone] Summary purpose TRANSITION OF CARE AUTO GENERATION [...] Functional Status Finding Observation Time Diet regular :25 Abdomen Appearance obese :25 Abdomen soft :25 Bowel Sounds present :25 Ramírez no :25 Urination normal :25 Quality sym/unlabored : Cough absent :25 Secretions no :25 Breath Sounds RUL clear :25 Breath Sounds RML clear :25 Breath Sounds RLL clear :25 Breath Sounds SARA clear :25 Breath Sounds LLL clear : Airway natural : Chest Tube no : Oxygen no : Temp >100.4 no : Temp <96.8 no : Chills with rigors no : HR > 90bpm no : Respirations > 20 no : Systolic <90 no : headache stiff neck no : Rapid Resp no : Nursing Note Dismissed home per Dr. Walker . Discharge instructions given and understood by pt who verbalized understanding. Ambulated to exit with sister who will drive pt home. :35 Vital signs Type Value Date Respiration Rate 18breaths per minute : 35 Pulse 78beats per minute :35 Oxygen Saturation 100% :35 BP Systolic 138mmHg :35 BP Diastolic 70mmHg :35 Temperature 98.2F :35 Social history Type Value Smoking Status CURRENT EVERY DAY SMOKER Treatment Plan No treatment plan text is available for this visit. Hospital discharge instructions Dismissal Condition good Disposition on DC home DC Inst/Educ Give yes Med/Side Effects Rev yes PNE Vac none Flu Vac 2014 Tetanus Vac current
--- OUTSIDE RECORDS SUMMARY | 2020-01-18 15:31 | XMS REPORT ---
Author Author [facility] Medic al Staff, TOMY Rashid Organization [facility] Address [address] [place], [place] [address] Phone [phone] Care Team Providers Care Ell Tutor Name Role Phone CHRISTOPHER YORK, CAROLEE PP [phone] CAROLEE WHITE MD PP [phone] Summary purpose TRANSITION OF CARE AUTO GENERATION [...] glasses :15 Ambulation Asst Dev none :15 Range of Motion full :29 Muscle Strength RUE 5 ROM full resist :29 Muscle Strength RLE 5 ROM full resist :29 Muscle Strength LUE 5 ROM full resist :29 Muscle Strength LLE 5 ROM full resist :29 Transfers independent : Ambulation up ad hernandez : Balance steady : Bathing Assistance none :15 Eating Assistance none :15 Dressing Assistance none : Toileting Assistance none : Transfer Assistance none :15 Decline Slf Care/Mob no :15 Phys Cond Stable yes :15 Nutrition normal :29 Diet regular : Oral Cavity moist and intact : Teeth none : Dental Hygiene good :29 Abdomen Appearance obese :29 Abdomen soft :29 Bowel Sounds present : NG Tube no :29 Feeding Tube none :29 Ramírez no :29 Cont Bladder Irr no : Ostomy no : Stool normal : Urination normal :29 Quality sym/unlabored : Cough absent :29 Secretions no : Breath Sounds RUL clear :29 Breath Sounds RML clear :29 Breath Sounds RLL clear :29 Breath Sounds SARA clear :29 Breath Sounds LLL clear :29 Airway natural : Chest Tube no :29 Oxygen no :00 C-PAP no :29 BI-PAP no :29 Temp >100.4 no : Temp <96.8 no : Chills with rigors no :29 HR > 90bpm no : Respirations > 20 no : Systolic <90 no : headache stiff neck no : IV Site Location R hand : IV Type peripheral :30 IV Site Information discontinued : IV Site Start Attmpt 2 times : IV Site Isael 20 : IV Site Appearance WNL : IV Site Color clear : IV Site Patent yes : Dressing Type occlusive : Nursing Note Pt said she was "sore....tali ar drainage". I discussed about serous drainage, could be the colorless part of her blood or interstitial fluid from her tissues seaping out. I did inform her to contact her dr if this did not lessen with time or if there becomes any color to it. Pt verbalized understanding. :34 Cognitive Status Finding Observation Time Learning Ability comprehends well :39 Neurological no :39 Psychological no :39 Physical no :39 Hearing no :39 Technology Auditor Needed no :39 Sign Language no :39 Emotional no :39 Vision no :39 Laguage no :39 Financial no :39 Vital signs Type Value Date Respiration Rate 18breaths per minute : 00 Pulse 70beats per minute :00 Oxygen Saturation 98% :00 BP Systolic 132mmHg :00 BP Diastolic 79mmHg :00 Temperature 98.2F :21 Height 63inches :20 Weight 233.5LB 89-21-488347:20 Social history No Social History or smoking status observations were recorded for this visit. ( Unknown if ever smoked.) Treatment Plan No treatment plan text is available for this visit. Hospital discharge instructions Discharge Date/Time 09/07/15 Accompanied By Ebony Carrillo other (explain) Comment: grandma Dismissal Condition good Disposition on DC home Valuables no Valuable Type jewelry (describe) Comment: multiple earrings DC Inst/Educ Give yes Exit Care Educ Given yes Med/Side Effects Rev yes PNE Vac never Flu Vac 04/2015 Tetanus Vac 06/2013 Diet Explained yes Follow up appt already scheduled Follow Up Appt D/T 09/21/15 2;00pm
--- OUTSIDE RECORDS SUMMARY | 2020-01-18 15:31 | XMS REPORT ---
Author Author [facility] Medic [facility] Staff, TOMY Rashid Organization [facility] Address [address], [place] [address] Phone [phone] Summary purpose TRANSITION OF CARE AUTO GENERATION Chief Complaint and Reason for Visit Admit Diagnosis 1 LUMBAGO Problem list No authorized problems tracked for [...] tests and/or laboratory data RESULTS Radiology Results [id number]:00 LUMBAR SPINE XRAY - 3V PACs Image [...] study. DO FABRIZIO Van/darien 02/26/2015 11:31:00 / 0807/2014 11:38:51 cc:Dr. Rachel Townsend This document has been electronically Signed [...] scoliosis. Otherwise normal study. Radha Galvan DO [facility] 02/26/2015 11:31:02/07 11:38:51 cc:Dr. Rachel Townsend This document has been electronically Signed by: RADHA GALVAN DO On: Feb 26 20151:50P Result Amended on 2015-02-26 at 13:50:13 . Previous status was [place]. PELVIS XRAY - 1 VIEW PACs Image DATE OF EXAM: Feb 26 2015 RAD 1225-PELVIS XRAY-1 VIEW : RADIOLOGY REPORT DATE OF SERVICE: 02/26/15 HISTORY: Patient has lumbago. [id number] HOURS Bony pelvis is intact. Sacroiliac joints and hip joint spaces are maintained. There are metal clips in the pelvis. Soft tissues are normal. IMPRESSION: Negative study. Radha Galvan DO /la 02/26/2015 11:31:02/07 11:39:50 cc:Dr. Rachel Townsend This document has been electronically Signed by: On: DATE OF EXAM: Feb 26 2015 RAD 1225-PELVIS XRAY-1 VIEW : RADIOLOGY REPORT DATE OF SERVICE: 02/26/15 HISTORY: Patient has lumbago. [id number] HOURS Bony pelvis is intact. Sacroiliac joints and hip joint spaces are maintained. There are metal clips in the pelvis. Soft tissues are normal. IMPRESSION: Negative study. Radha Galvan DO [facility] 02/26/2015 11:31:02/07 11:39:50 cc:Dr. Rachel Townsend This document has been electronically Signed by: RADHA GALVAN DO On: Feb 26 20151:50P Result Amended on 2015-02-26 at 13:50:19 . Previous status was MN. History of procedures Procedure Code Code Type Description Date Performed Performing Physician 40175 CPT-4 X-RAY EXAM OF PELVIS 02-26-2015 FELICE TOWNSEND 33683 CPT-4 X-RAY EXAM OF LOWER SPINE 02-26-2015 RACHEL TOWNSEND Functional status No functional or cognitive status [...]
--- OUTSIDE RECORDS SUMMARY | 2020-01-18 15:31 | XMS REPORT ---
Author Author [facility] Medic al Staff, TOMY Rashid Organization [facility] Address [address], [place] [address] Phone [phone] Care Team Providers Care Fuel Management Handler Name Role Phone LYNSEY YORK, SILVANA PP [phone] Summary purpose TRANSITION OF CARE AUTO GENERATION [...] diagnostic tests and/or laboratory data RESULTS Chemistry [id number]:01:00 Result Normal Range Units Sodium 137 134-145 [...] % Lymph % L 17.2 20-40 % Chester % 5.0 0-10.0 % Eos % 0.8 0-7.0 % Baso % 0.3 0-2 % Neutro # H 11.6 1.5-7.5 103/uL Lymph # 2.6 0.9-4.0 103/uL Chester # 0.8 0-0.8 103/uL Eos # 0.1 [...]
--- OUTSIDE RECORDS SUMMARY | 2020-01-18 15:31 | XMS REPORT ---
Author Author [facility] Medic al Staff, TOMY Rashid Organization [facility] Address [address], [place] [address] Phone [phone] Summary purpose TRANSITION OF CARE AUTO GENERATION [...] Status Finding Observation Time Abdomen Appearance obese :15 Abdomen soft :15 Bowel Sounds present :15 Ramírez no :15 Urination normal :15 Quality sym/unlabored :15 Cough absent :15 Secretions no :15 Breath Sounds RUL clear :15 Breath Sounds RML clear :15 Breath Sounds RLL clear :15 Breath Sounds SARA clear :15 Breath Sounds LLL clear :15 Airway natural :15 Chest Tube no :15 Oxygen no :25 Temp >100.4 no :15 Temp <96.8 no :15 Chills with rigors no :15 HR > 90bpm no :15 Respirations > 20 no :15 Systolic <90 no :15 headache stiff neck no :15 Rapid Resp no :15 Nursing Note Discharge instructions revie wed with pt-verbalized undstanding. VS obtained, dc in good condition. :25 Vital signs Type Value Date Respiration Rate 20breaths per minute : 25 Pulse 73beats per minute :25 Oxygen Saturation 97% :25 BP Systolic 135mmHg :25 BP Diastolic 76mmHg :25 Temperature 97.7F :01 Social history Type Value Smoking Status CURRENT EVERY DAY SMOKER Treatment Plan No treatment plan text is available for this visit. Hospital discharge instructions Dismissal Condition good Disposition on DC home DC Inst/Educ Give yes PNE Vac none Flu Vac 2014 Tetanus Vac current
--- OUTSIDE RECORDS SUMMARY | 2020-01-18 15:31 | XMS REPORT ---
Author Author [facility] Medic al Staff, TOMY Rashid Organization [facility] Address [address] [place], [place] [address] Phone [phone] Care Team Providers Care Sales Teacher Name Role Phone SILVANA MENON MD PP [phone] Summary purpose TRANSITION OF CARE AUTO GENERATION Chief Complaint and Reason for Visit Admit Diagnosis 1 EXACERBATION OF HIDRADENITIS Problem list No authorized problems tracked [...]
--- OUTSIDE RECORDS SUMMARY | 2020-01-18 15:31 | XMS REPORT ---
Author Author [facility] Medic al Staff, TOMY Rashid Organization [facility] Address [address], [place] [address] Phone [phone] Care Team Providers Care Teacher Of Gifted Students Name Role Phone ROCHELLE YORK, LENARD PP [phone] Summary purpose TRANSITION OF CARE AUTO GENERATION [...] Observation Time Abdomen Appearance obese :45 Abdomen non-tender :45 Urination normal :45 Quality sym/unlabored :45 Cough absent :45 Airway natural :45 Chest Tube no :45 Oxygen no :10 Temp >100.4 no :45 Temp <96.8 no :45 Chills with rigors no :45 HR > 90bpm no :45 Respirations > 20 no : Systolic <90 no :45 headache stiff neck no :45 Nursing Note D/C instructions to pt. Understanding ve rbalized. :10 Vital signs Type Value Date Respiration Rate 20breaths per minute : 10 Pulse 89beats per minute :10 Oxygen Saturation 99% :10 BP Systolic 150mmHg :10 BP Diastolic 97mmHg :10 Temperature 97.3F :10 Social history Type Value Smoking Status CURRENT EVERY DAY SMOKER Treatment Plan No treatment plan text is available for this visit. Hospital discharge instructions Dismissal Condition good Disposition on DC home DC Inst/Educ Give yes Med/Side Effects Rev yes PNE Vac none Flu Vac 2014 Tetanus Vac 2012
--- OUTSIDE RECORDS SUMMARY | 2020-01-18 15:31 | XMS REPORT ---
Author Author [facility] Medic al Staff, TOMY Rashid Organization [facility] Address [address], [place] [address] Phone [phone] Care Team Providers Care Cork Insulator Name Role Phone ROCHELLE YORK, LENARD PP [phone] Summary purpose TRANSITION OF CARE AUTO GENERATION [...]
--- OUTSIDE RECORDS SUMMARY | 2020-01-18 15:31 | XMS REPORT ---
Author Author [facility] Medic al Staff, TOMY Rashid Organization [facility] Address [address], [place] [address] Phone [phone] Summary purpose TRANSITION OF CARE AUTO GENERATION [...] Code Type Description Date Performed Performing Physician [id number] ICD10 Repair Abdomen Skin, External Approach 06-06-2015 PRATIK MARKS 94558 CPT-4 EMERGENCY DEPT VISIT 06-06-2015 NEERAJ MARKS 96229 CPT-4 CLOSURE OF SPLIT WOUND 06-06-2015 [facility] TRISHA MARKS 17791 CPT-4 CLOSURE OF SPLIT WOUND 06-06-2015 LORNA AN Functional status Functional Status Finding Observation Time Diet regular 15-58-366227:15 Abdomen Appearance obese 69-47-921446:15 Abdomen soft 39-69-795505:15 Ramírez no 47-30-775310:15 Urination normal 77-30-072949:15 Quality sym/unlabored 87-34-822859:15 Cough absent :15 Secretions no :15 Airway [...] 97F :50 Height 63inches :50 Weight 230.4LB 36-43-572474:50 Social history Type Value Smoking Status CURRENT EVERY DAY SMOKER Treatment Plan No treatment plan text is available for this visit. Hospital discharge instructions Dismissal Condition good Disposition on DC home DC Inst/Educ Give yes Med/Side Effects Rev yes PNE Vac none Flu Vac 2014 Tetanus Vac current
--- OUTSIDE RECORDS SUMMARY | 2020-01-18 15:31 | XMS REPORT ---
Author Author [facility] Medic al Staff, TOMY Rashid Organization [facility] Address [address], [place] [address] Phone [phone] Care Team Providers Care Entry Level Accountant Name Role Phone SILVANA MENON MD PP [phone] Summary purpose TRANSITION OF CARE AUTO GENERATION [...] tests and/or laboratory data RESULTS Radiology Results [id number]:25:00 KNEE XRAY - 3 VIEW PACs Image DATE OF EXAM: Dec 22 2015 RAD 0953-KNEE XRAY-3 VIEW - RIGHT: RADIOLOGY REPORT DATE OF SERVICE: 12/22/15 HISTORY: Right knee pain, no known injury RIGHT KNEE 3 VIEWS 0040 HOURS The joint surfaces are smooth and well m aintained. There is no fracture or arthritic change. There is no joint effusion. IMPRESSION: Normal knee. MD GEOVANNA Carrasco/ma12/22/2015 08:12:00 / 12/07 08:47:53 cc:SILVANA MENON This document has been electronically Signed by: On: DATE OF EXAM: Dec 22 2015 RAD 0953-KNEE XRAY-3 VIEW - RIGHT: RADIOLOGY REPORT DATE OF SERVICE: 12/22/15 HISTORY: Right knee pain, no known injury RIGHT KNEE 3 VIEWS 0040 HOURS The joint surfaces are smooth and well m aintained. There is no fracture or arthritic change. There is no joint effusion. IMPRESSION: Normal knee. Justin Carpenter MD [facility]/ma12/22/2015 08:12:00 / 12/07 08:47:53 cc:SILVANA MENON This document has been electronically Signed by: JUSTIN CARPENTER MD On: Dec 22 2015 11:25A Result Amended on 2015-12-22 at 11:25:23 . Previous status was CT. History of procedures No procedures recorded for this patient visit. Functional status Functional Status Finding Observation Time Muscle Strength RLE 5 ROM full resist :05 Abdomen Appearance obese :05 Abdomen soft :05 Ramírez no :05 Urination normal :05 Quality sym/unlabored : Cough absent : Secretions no : Airway natural : Chest Tube no :05 Oxygen no :55 Temp >100.4 no : Temp <96.8 no :05 Chills with rigors no :05 HR > 90bpm no :05 Respirations > 20 no :05 Systolic <90 no :05 headache stiff neck no :05 Nursing Note acr wrap applied to R knee. Discharge instructions reviewed with pt-verbalized understanding. VS obtained-amb to infusion center :55 Vital signs Type Value Date Respiration Rate 18breaths per minute : 55 Pulse 70beats per minute :55 Oxygen Saturation 98% 51-32-773899:55 BP Systolic 143mmHg 48-79-582997:55 BP Diastolic 96mmHg 89-32-825838:55 Temperature 98.2F 90-50-654912:55 Social history Type Value Smoking Status CURRENT EVERY DAY SMOKER Treatment Plan No treatment plan text is available for this visit. 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
--- OUTSIDE RECORDS SUMMARY | 2020-01-18 15:31 | XMS REPORT ---
Author Author [facility] Medic al Staff, TOMY Rashid Organization [facility] Address [address], [place] [address] Phone [phone] Care Team Providers Care Net Finisher Name Role Phone EDDIE SCOTT APRN PP [phone] Summary purpose TRANSITION OF CARE AUTO GENERATION [...] diagnostic tests and/or laboratory data RESULTS Routine Urinalysis 46-62-728384:50:00 Result Normal Range Units Color YELLOW Clarity Hazy Specific [place] 1.020 1.003-1.035 pH 6.0 4.5-8.0 Glucose NEGATIVE Bilirubin NEGATIVE Ketones NEGATIVE Protein NEGATIVE Urobilinogen 0.2 0-0.2 E.U./dL Nitrites NEGATIVE Blood NEGATIVE Leukocytes NEGATIVE WBCs 5-10 RBCs 0-5 Squamous Epithelial 2+ Bacteria 3+ Body Fluid 39-01-048617:50:00 Result Normal Range Units pH 6.0 4.5-8.0 History of procedures No procedures recorded for this patient visit. Functional status Functional Status Finding Observation Time Diet regular 56-16-882620:40 Abdomen Appearance obese 80-49-933874:40 Abdomen soft 89-37-634955:40 Bowel Sounds present 78-69-494065:40 Ramírez no 00-19-313000:40 Urination normal 05-90-990106:40 Quality sym/unlabored :40 Cough absent :40 Secretions no :40 Breath Sounds RUL clear :40 Breath Sounds RML clear :40 Breath Sounds RLL clear :40 Breath Sounds SARA clear :40 Breath Sounds LLL clear 43-23-511746:40 Airway natural :40 Chest Tube no :40 Oxygen no 40-03-280669:30 Nursing Note Discharge instructions reviewed. patient verbalized understanding. 56-78-876405:35 Vital signs Type Value Date Respiration Rate 18breaths per minute 30-30-626275: 30 Pulse 74beats per minute :30 Oxygen Saturation 98% 40-43-752990:30 BP Systolic 135mmHg 87-34-762027:30 BP Diastolic 68mmHg 36-43-112689:30 Temperature 98.0F 93-86-835904:30 Height 63inches 78-36-121585:35 Weight 223LB 62-83-792563:35 Social history Type Value Smoking Status CURRENT EVERY DAY SMOKER Treatment Plan No treatment plan text is available for this visit. Hospital discharge instructions Dismissal Condition good Disposition on DC home DC Inst/Educ Give yes Med/Side Effects Rev yes PNE Vac none Flu Vac 2014 Tetanus Vac current
--- OUTSIDE RECORDS SUMMARY | 2020-01-18 15:31 | XMS REPORT ---
Author Author [facility] Medic al StaffTOMY Organization [facility] Address [address], [place] [address] Phone [phone] Care Team Providers Care Wood Calker Name Role Phone CAROLEE WHITE MD PP [phone] CAROLEE WHITE MD PP [phone] Summary purpose TRANSITION OF CARE AUTO GENERATION Chief Complaint and Reason for Visit Admit Diagnosis 1 I&D PERIRECTAL ABSCESS Problem list No authorized problems tracked for continuity of care are available for this vis it. Encounters The following conditions tracked for encounter diagnoses were recorded for this visit: Finding or Diagnosis Status Certainty Chronicity Onset *INCISION AND DRAINAGE OF ABSCESS Active Medications No medications recorded for this [...] Status Finding Observation Time Vision Problems yes 16-67-673635:21 Vision Correct Dev glasses 43-68-903651:21 Ambulation Asst Dev none 88-87-201624:21 Range of Motion full :10 Muscle Strength RUE 5 ROM full resist 29-34-691205:10 Muscle Strength RLE 5 ROM full resist 28-85-983097:10 Muscle Strength LUE 5 ROM full resist 60-25-912713:10 Muscle Strength LLE 5 ROM full resist 92-01-448320:10 Transfers assist x 1 01-10-080032:10 Ambulation in room :10 Balance unsteady :10 Bathing Assistance none :21 Eating Assistance none : Dressing Assistance none : Toileting Assistance none : Transfer Assistance none :21 Decline Slf Care/Mob no :21 Phys Cond [...] : IV Site Start Attmpt 1 times 76-98-762021:57 IV Site Isael 20 :25 IV Site Appearance WNL : IV Site Color clear : IV Site Patent yes : Dressing Type occlusive :25 Nursing Note pt dismissed from the unit a t this time. pt ambulatory to private vehicle. pt in stable condition to home. no questions or concerns regarding home instructions. deonna nunez, to drive pt home. :30 Cognitive Status Finding Observation Time Learning Ability comprehends well : Neurological no :25 Psychological no :25 Physical no 95-44-099186:25 Hearing no :25 Extractions Technologist Needed no : Sign Language no :25 Emotional no : Vision yes : [place] no :25 Financial no :25 Vital signs Type Value Date Respiration Rate 18breaths per minute 75-34-100275: 15 Pulse 85beats per minute :15 Oxygen Saturation 99% :15 BP Systolic 133mmHg 36-56-181827:15 BP Diastolic 83mmHg 67-96-986481:15 Temperature 96.0F :10 Height 67inches :21 Weight 230LB :21 Social history Type Value Smoking Status CURRENT EVERY DAY SMOKER Treatment Plan No treatment plan text is available for this visit. Hospital discharge instructions Discharge Date/Time 10/21/14 1030 Accompanied By deonna Relationship other (explain) Comment: sister Dismissal Condition good Disposition on DC home Valuables yes Valuable Type billfold/purse DC Inst/Educ Give yes Exit Care Educ Given yes PNE Vac never Flu Vac 04/2014 Tetanus Vac 06/2013 Diet Explained yes Follow up appt already scheduled Follow Up Appt D/T 10/27/14 4853
--- OUTSIDE RECORDS SUMMARY | 2020-01-18 15:31 | XMS REPORT ---
Author Author [facility] Medic al Staff, TOMY Rashid Organization [facility] Address [address], [place] [address] Phone [phone] Summary purpose TRANSITION OF CARE AUTO GENERATION [...] Code Type Description Date Performed Performing Physician 96261 CPT-4 THER/PROPH/DIAG IV INF, INIT 09-25-2015 LENARD BYRD 44660 CPT-4 THER/PROPH/DIAG IV INF, INIT 09-25-2015 LENARD BYRD 77628 CPT-4 THER/PROPH/DIAG IV INF, INIT 09-26-2015 LENARD BYRD 83759 CPT-4 THER/PROPH/DIAG IV INF, INIT 09-26-2015 LENARD BYRD 09278 CPT-4 THER/PROPH/DIAG IV INF ADDON 09-25-2015 LENARD BYRD 70568 CPT-4 THER/PROPH/DIAG IV INF ADDON 09-25-2015 LENARD BYRD 01551 CPT-4 THER/PROPH/DIAG IV INF ADDON 09-26-2015 LENARD BYRD 13674 CPT-4 THER/PROPH/DIAG IV INF ADDON 09-26-2015 LENARD BYRD 66565 CPT-4 TX/PRO/DX INJ NEW DRUG ADDON 09-25-2015 LENARD BYRD 41673 CPT-4 TX/PRO/DX INJ NEW DRUG ADDON 09-25-2015 LENARD BYRD 72626 CPT-4 TX/PRO/DX INJ NEW DRUG ADDON 09-26-2015 LENARD BYRD 56968 CPT-4 TX/PRO/DX INJ NEW DRUG ADDON 09-26-2015 LENARD BYRD J1200 CPT-4 DIPHENHYDRAMINE HCL INJECTIO 09-25-2015 LENARD BYRD J1200 CPT-4 DIPHENHYDRAMINE HCL INJECTIO 09-25-2015 LENARD BYRD J1200 CPT-4 DIPHENHYDRAMINE HCL INJECTIO 09-25-2015 LENARD BYRD J1200 CPT-4 DIPHENHYDRAMINE HCL INJECTIO 09-26-2015 LENARD BYRD J1200 CPT-4 DIPHENHYDRAMINE HCL INJECTIO 09-26-2015 LENARD BYRD J3370 CPT-4 VANCOMYCIN HCL INJECTION 09-25-2015 V MOY BYRD J3370 CPT-4 VANCOMYCIN HCL INJECTION 09-26-2015 V MOY BYRD J3370 CPT-4 VANCOMYCIN HCL INJECTION 09-26-2015 V MOY BYRD J7040 CPT-4 NORMAL SALINE SOLUTION INFUS 09-25-2015 LENARD BYRD J7040 CPT-4 NORMAL SALINE SOLUTION INFUS 09-26-2015 LENARD BYRD J7040 CPT-4 NORMAL SALINE SOLUTION INFUS 09-26-2015 LENARD BYRD Functional status Functional Status Finding Observation Time Hearing Prob Loc none 83-91-911455:21 Vision Problems yes 32-87-803457:21 Vision Correct Dev glasses 97-70-401081:21 Ambulation Asst Dev none 78-56-289074:21 Bathing Assistance none 63-55-389662:21 Eating Assistance none 25-01-774585:21 Dressing Assistance none 21-03-527102:21 Toileting Assistance none 76-73-052427:21 Transfer Assistance none : Decline Slf Care/Mob no :21 Phys Cond Stable yes : Oxygen no :45 IV Site Location L AC : IV Type peripheral : IV Site Information existing : IV Site Start Attmpt 1 times : IV Site Isael 22 : IV Site Appearance WNL : IV Site Color clear : IV Site Patent yes : Dressing Changed no (explain) Comment: dsg CDI :55 Dressing Type occlusive : Nursing Note pt IV vanc done infusing, pt VS taken, SL flushed with 10cc NS and wrapped with conform and coban, pt denies needs or concerns at this time, ambulated off unit with family out to private vehicle in stable condition. :45 Cognitive Status Finding Observation Time Oriented To Date 5 Yes :[address] 5 Yes :21 Name 3 Objects 3 Yes : Name Object in Rm 2 Yes : Recall 3 Objects 3 Yes :21 Repeats a Phrase 1 Yes :21 Follows Verbal Direc 3 Yes : Follows Written Dire 1 Yes : Write a Sentance 1 Yes : Draw an Object 1 Yes :21 Mini Mental Total 25 points :21 Less than 20 Phys not applicable :21 Learning Ability comprehends well :39 Neurological no :39 Psychological no :39 Physical no :39 Hearing no :[address] Deputy Clerk Needed no :39 Sign Language no :39 Emotional no :39 Vision yes :39 Laguage no :39 Financial no :39 Vital signs Type Value Date Respiration Rate 20breaths per minute : Pulse 69beats per minute :45 Oxygen Saturation 96% :45 BP Systolic 108mmHg :45 BP Diastolic 62mmHg :45 Temperature 96.9F :45 Height 64inches :17 Weight 240LB :17 Social history No Social History or smoking status observations were recorded for this visit. ( Unknown if ever smoked.) Treatment Plan No treatment plan text is available for this visit. Hospital discharge instructions Valuables yes Valuable Type billfold/purse PNE Vac never Flu Vac 04/27/15 Tetanus Vac 06/27/13
--- OUTSIDE RECORDS SUMMARY | 2020-01-18 15:31 | XMS REPORT ---
Author Author [facility] Medic al Staff, TOMY Rashid Organization [facility] Address [address] [place], [place] [address] Phone [phone] Care Team Providers Care Cash Clerk Name Role Phone CAROLEE WHITE MD PP [phone] CAROLEE WHITE MD PP [phone] Summary purpose TRANSITION OF CARE AUTO GENERATION Chief Complaint and Reason for Visit Admit Diagnosis 1 E/O HYDRANTITAS ON BUTTOCK X 2 Problem list No authorized problems [...] Status Finding Observation Time Vision Problems yes :02 Vision Correct Dev glasses 34-69-880982:02 Ambulation Asst Dev none 22-66-937683:02 Range of Motion full :15 Muscle Strength RUE 5 ROM full resist :15 Muscle Strength RLE 5 ROM full resist :15 Muscle Strength LUE 5 ROM full resist :15 Muscle Strength LLE 5 ROM full resist 19-52-475743:15 Transfers assist x 1 23-65-727508:15 Ambulation up ad hernandez 15-11-277384:15 Balance steady 34-53-806169:15 Bathing Assistance none 65-20-048277:02 Eating Assistance none :02 Dressing Assistance none :02 Toileting Assistance none 75-18-471783:02 Transfer Assistance none :02 Decline Slf Care/Mob no 39-46-461422:02 Phys Cond Stable yes :02 Nutrition normal 93-45-090872:15 Diet regular 84-67-071049:15 Oral Cavity moist and intact 74-05-912539:15 Teeth missing (specify) 94-38-066180:15 Dental Hygiene good 19-89-940267:15 Abdomen Appearance obese 27-37-686293:15 Abdomen soft 41-29-199236:15 Bowel Sounds present 77-63-572918:15 NG Tube no 00-06-934462:15 Feeding Tube none 83-90-001130:15 Ramírez no 45-46-437471:15 Cont Bladder Irr no 50-48-424565:15 Ostomy no 40-25-287744:15 Stool normal 77-29-972059:15 Urination normal 88-99-575992:15 Quality sym/unlabored 12-27-536164:15 Cough absent 70-34-970325:15 Secretions no 71-71-924043:15 Breath Sounds RUL clear 66-66-786364:15 Breath Sounds RML clear 66-48-178590:15 Breath Sounds RLL wheezes 94-86-002926:15 Breath Sounds SARA clear 92-10-494595:15 Breath Sounds LLL wheezes 09-44-578489:15 Airway natural 39-84-622904:15 Chest Tube no 14-96-681373:15 Oxygen no 66-40-321809:40 C-PAP no 49-09-520998:15 BI-PAP no 58-55-591127:15 Temp >100.4 no :15 Temp <96.8 no 23-82-347491:15 Chills with rigors no 63-90-443686:15 HR > 90bpm yes 19-47-372932:15 Respirations > 20 no 82-44-001131:15 Systolic <90 no 39-60-625689:15 headache stiff neck no 01-67-877815:15 Rapid Resp no 91-70-982187:15 IV Site Location L hand :30 IV Type peripheral :30 IV Site Information discontinued : IV Site Start Attmpt 1 times 00-20-360558:25 IV Site Isael 20 :15 IV Site Appearance WNL : IV Site Color clear : IV Site Patent yes : Dressing Type occlusive :15 Nursing Note Discharge instr provided, pt verb understanding. Percoset script given to pt, not a new med to this pt. Pt dc'd to home in stable condition ambulatory with family in personal vehical. Belongings intact. :45 Cognitive Status Finding Observation Time Learning Ability comprehends well :45 Neurological no 21-88-556429:45 Psychological no 67-80-086096:45 Physical no 80-74-128943:45 Hearing no 28-83-735493:45 Etcher Electrolytic Needed no :45 Sign Language no :45 Emotional no :45 Vision yes :45 [place] no :45 Financial no :45 Vital signs Type Value Date Respiration Rate 18breaths per minute : 40 Pulse 98beats per minute :40 Oxygen Saturation 95% :40 BP Systolic 105mmHg 91-13-958712:40 BP Diastolic 68mmHg :40 Temperature 96.0F 18-02-482805:15 Height 67inches 62-35-376923:15 Weight 230LB 82-37-331079:15 Social history Type Value Smoking Status CURRENT EVERY DAY SMOKER Treatment Plan No treatment plan text is available for this visit. Hospital discharge instructions Discharge Date/Time 11/05/14 1445 Accompanied By crystal Relationship other (explain) Dismissal Condition good Disposition on DC home Valuables yes Valuable Type cell phone Valuables Returned T patient DC Inst/Educ Give yes Exit Care Educ Given yes Med/Side Effects Rev yes PNE Vac never Flu Vac 04/2014 Tetanus Vac 06/2013 Diet Explained yes Follow up appt already scheduled Follow Up Appt D/T 11/19/14 1400
--- OUTSIDE RECORDS SUMMARY | 2020-01-18 15:31 | XMS REPORT ---
Author Author [facility] Medic al Staff, TOMY Rashid Organization [facility] Address [address], [place] [address] Phone [phone] Care Team Providers Care Senior Accountant Cpa Name Role Phone ROCHELLE YORK, LENARD PP [phone] LENARD BYRD MD, PP [phone] Summary purpose TRANSITION OF CARE AUTO GENERATION Chief Complaint and Reason for Visit Admit Diagnosis 1 E/O PILONIDAL CYSTO E/O HYD RANITIS Admit Diagnosis 2 (RIGHT AXILLA, GROIN, UNDER BUTTOCK X2, Problem list No authorized problems tracked for [...] Code Type Description Date Performed Performing Physician [id number] ICD10 Excision of Buttock Subcu/Fascia, Open Ap proach 11-02-2015 CATY GARZA [id number] ICD10 Excision of Right Lower Arm Skin , External Approach, Diagn 11-02-2015 CATY GARZA [id number] ICD10 Excision of Pelvic Subcu/Fascia, Open Jese palma 11-02-2015 CATY GARZA [id number] ICD10 Excision of Right Upper Leg Skin , External Approach, Diagn 11-02-2015 CATY GREG [id number] ICD10 Excision of Right Upper Arm Skin , External Approach, Diagn 11-02-2015 CATY GARZA 14739 CPT-4 EXC TR-EXT B9+RICARDA 0.5 < CM 11-02-2015 CATY GARZA 04682 CPT-4 EXC TR-EXT B9+RICARDA 0.5 < CM 11-02-2015 CATY GREG 67039 CPT-4 EXC TR-EXT B9+RICARDA 0.5 < CM 11-02-2015 CATY GARZA 52997 CPT-4 REMOVAL, SWEAT GLAND LESION 11-02-2015 CATY GARZA 41270 CPT-4 REMOVAL, SWEAT GLAND LESION 11-02-2015 CATY GARZA 74864 CPT-4 SPECIAL SUPPLIES 11-02-2015 CATY DEL VALLE 69698 CPT-4 SPECIAL SUPPLIES 11-02-2015 CATY DEL VALLE J0690 CPT-4 CEFAZOLIN SODIUM INJECTION 11-02-2015 CATY GARZA J1170 CPT-4 HYDROMORPHONE INJECTION 11-02-2015 [place] GARZA J2250 CPT-4 INJ MIDAZOLAM HYDROCHLORIDE 11-02-2015 CATY GARZA J2270 CPT-4 MORPHINE SULFATE INJECTION 11-02-2015 CATY GARZA J2405 CPT-4 ONDANSETRON HCL INJECTION 11-02-2015 CATY GARZA J2704 CPT-4 INJ, PROPOFOL, 10 MG 11-02-2015 CATY GARZA J3010 CPT-4 FENTANYL CITRATE INJECITON 11-02-2015 CATY GARZA J7120 CPT-4 RINGERS LACTATE INFUSION 11-02-2015 Margo GARZA Functional status Functional Status Finding Observation Time Hearing Prob Loc none 34-71-703862:17 Vision Problems yes 90-60-773988:17 Vision Correct Dev glasses 49-34-906415:17 Ambulation Asst Dev none 55-02-043712:17 Range of Motion full :55 Muscle Strength RUE 5 ROM full resist :55 Muscle Strength RLE 5 ROM full resist :55 Muscle Strength LUE 5 ROM full resist :55 Muscle Strength LLE 5 ROM full resist 78-72-672797:55 Transfers assist x 1 61-98-685075:55 Ambulation in room 17-85-121134:55 Balance unsteady :55 Bathing Assistance none :17 Eating Assistance none :17 Dressing Assistance none :17 Toileting Assistance none :17 Transfer Assistance none :17 Decline Slf Care/Mob no :17 Phys Cond Stable yes :17 Nutrition normal :55 Diet regular :55 Oral Cavity moist and intact :55 Teeth none :55 Dental Hygiene good :55 Abdomen Appearance obese :55 Abdomen soft :55 Bowel Sounds present :55 NG Tube no :55 Feeding Tube none :55 Ramírez no :55 Cont Bladder Irr no :55 Ostomy no :55 Stool normal :55 Urination normal :55 Quality sym/unlabored :55 Cough absent :55 Secretions no :55 Breath Sounds RUL clear :55 Breath Sounds RML clear :55 Breath Sounds RLL clear :55 Breath Sounds SARA clear :55 Breath Sounds LLL clear :55 Airway natural :55 Chest Tube no :55 Oxygen no 26-04-448352:25 C-PAP no :55 BI-PAP no :55 Temp >100.4 no :55 Temp <96.8 no :55 Chills with rigors no :55 HR > 90bpm no :55 Respirations > 20 no :55 Systolic <90 no 69-84-467053:55 headache stiff neck no :55 IV Site Location L ac :25 IV Type peripheral 86-57-711319:25 IV Site Information discontinued : IV Site Start Attmpt 1 times :40 IV Site Isael 20 :25 IV Site Appearance WNL :25 IV Site Color clear : IV Site Patent yes : Dressing Type occlusive :25 Nursing Note pt dismissed from the unit a t this time. pt in stable condition to go home. personal belongings in hand. grandmother to drive pt home. :30 Cognitive Status Finding Observation Time Learning Ability comprehends well :25 Neurological no :25 Psychological no :25 Physical no :25 Hearing no :25 Loan Services Professional Needed no : Sign Language no : Emotional no : Vision yes : Laguage no :25 Financial no :25 Vital signs Type Value Date Respiration Rate 16breaths per minute : Pulse 80beats per minute : Oxygen Saturation 97% : BP Systolic 152mmHg :25 BP Diastolic 92mmHg :25 Temperature 97.0F :55 Height 64inches :57 Weight 240LB :57 Social history Type Value Smoking Status NEVER SMOKER Treatment Plan No treatment plan text is available for this visit. Hospital discharge instructions Discharge Date/Time 11/02/15 1530 Relationship other (explain) Comment: grandmother Dismissal Condition good Disposition on DC home Valuables yes Valuable Type billfold/purse Valuables Returned T patient DC Inst/Educ Give yes Exit Care Educ Given yes Med/Side Effects Rev yes PNE Vac never Flu Vac 04/27/15 Tetanus Vac 06/27/13 Diet Explained yes Follow up appt already scheduled Follow Up Appt D/T 11/09/15 9653
--- OUTSIDE RECORDS SUMMARY | 2020-01-18 15:31 | XMS REPORT ---
Author Author [facility] Medic al Staff, TOMY Rashid Organization [facility] Address [address], [place] [address] Phone [phone] Care Team Providers Care Bi Consultant Name Role Phone EDDIE SCOTT APRN PP [phone] Summary purpose TRANSITION OF CARE AUTO GENERATION [...] tests and/or laboratory data RESULTS Routine Urinalysis 40-18-139597:50:00 Result Normal Range Units Color YELLOW Clarity Hazy Specific [place] 1.020 1.003-1.035 pH 6.0 4.5-8.0 Glucose NEGATIVE Bilirubin NEGATIVE Ketones NEGATIVE Protein NEGATIVE Urobilinogen 0.2 0-0.2 E.U./dL Nitrites NEGATIVE Blood NEGATIVE Leukocytes NEGATIVE WBCs 5-10 RBCs 0-5 Squamous Epithelial 2+ Bacteria 3+ Body Fluid 96-54-039742:50:00 Result Normal Range Units pH 6.0 4.5-8.0 History of procedures No procedures recorded for this patient visit. Functional status Functional Status Finding Observation Time Diet regular 74-99-966441:40 Abdomen Appearance obese 12-34-941912:40 Abdomen soft 45-34-087626:40 Bowel Sounds present 17-37-056115:40 Ramírez no 92-13-704489:40 Urination normal 02-45-222842:40 Quality sym/unlabored :40 Cough absent :40 Secretions no :40 Breath Sounds RUL clear :40 Breath Sounds RML clear :40 Breath Sounds RLL clear :40 Breath Sounds SARA clear :40 Breath Sounds LLL clear 09-57-829909:40 Airway natural :40 Chest Tube no :40 Oxygen no 07-90-870160:30 Nursing Note Discharge instructions reviewed. patient verbalized understanding. 47-45-025654:35 Vital signs Type Value Date Respiration Rate 18breaths per minute 67-84-962144: 30 Pulse 74beats per minute :30 Oxygen Saturation 98% 41-12-410636:30 BP Systolic 135mmHg 57-34-509463:30 BP Diastolic 68mmHg 63-50-122572:30 Temperature 98.0F 94-04-538769:30 Height 63inches 23-52-112499:35 Weight 223LB 49-04-605840:35 Social history Type Value Smoking Status CURRENT EVERY DAY SMOKER Treatment Plan No treatment plan text is available for this visit. Hospital discharge instructions Dismissal Condition good Disposition on DC home DC Inst/Educ Give yes Med/Side Effects Rev yes PNE Vac none Flu Vac 2014 Tetanus Vac current
--- OUTSIDE RECORDS SUMMARY | 2020-01-18 15:31 | XMS REPORT ---
Author Author [facility] Medic al Staff, TOMY Rashid Organization [facility] Address [address], [place] [address] Phone [phone] Care Team Providers Care Dean Of Graduate Studies Name Role Phone JC ANDRADEN, JULIAN PP [phone] JC CHIEF CLINICAL DIETITIAN, JULIAN PP [phone] Summary purpose TRANSITION OF CARE AUTO GENERATION Chief Complaint and Reason for Visit Admit Diagnosis 1 E/O HYDRANITIS RIGHT GROIN Admit Diagnosis 2 DEBRIDE PILONIDAL AREA Problem list No authorized problems tracked for [...] Finding Observation Time Hearing Prob Loc none 42-29-571473:57 Vision Problems yes 87-69-125359:57 Vision Correct Dev glasses 10-48-514421:57 Ambulation Asst Dev none 64-38-277935:57 Range of Motion full 09-07-702062:20 Muscle Strength RUE 5 ROM full resist 04-79-752623:20 Muscle Strength RLE 5 ROM full resist :20 Muscle Strength LUE 5 ROM full resist :20 Muscle Strength LLE 5 ROM full resist :20 Transfers assist x 1 :20 Ambulation in room : Balance steady :20 Bathing Assistance none :57 Eating Assistance none :57 Dressing Assistance none :57 Toileting Assistance none :57 Transfer Assistance none :57 Decline Slf Care/Mob no :57 Phys Cond Stable yes :57 Nutrition normal : Diet regular : Oral Cavity moist and intact : Teeth dentures : Dental Hygiene good : Abdomen Appearance obese :20 Abdomen soft : Bowel Sounds present : NG Tube no :20 Feeding Tube none :20 Ramírez no : Cont Bladder Irr no :20 Ostomy no : Stool normal : Urination normal : Urine Clarity clear : Urine Color straw :20 Quality sym/unlabored : Cough absent : Secretions no : Breath Sounds RUL clear :20 Breath Sounds RML clear :20 Breath Sounds RLL clear :20 Breath Sounds SARA clear :20 Breath Sounds LLL clear : Airway natural :20 Chest Tube no :20 Oxygen no :10 C-PAP no :20 BI-PAP no :20 Temp >100.4 no :20 Temp <96.8 no :20 Chills with rigors no : HR > 90bpm no :20 Respirations > 20 no : Systolic <90 no : headache stiff neck no :20 Rapid Resp no :20 IV Site Location Left wrist : IV Type peripheral : IV Site Information discontinued Comment: cath tip intact : IV Site Start Attmpt 5 times 34-80-101410:16 IV Site Isael 20 : IV Site Appearance WNL : IV Site Color clear : IV Site Patent yes : Dressing Changed yes : Dressing Type gauze :07 Nursing Note Pt states that she is ready to go home. States that oxycodone takes care of her pain and that she is sure she will feel OK. Denies nausea. DC teaching provided to pt and her aunt. Dressings are CDI. Wound care instrucitons provided. Pt denies further questions or needs. Pt escorted out via wheelchair to vehicle that is driven by her aunt- Lisa. :15 Cognitive Status Finding Observation Time Learning Ability comprehends well : Neurological no 15-78-657708:15 Psychological no 86-73-759179:15 Physical no :15 Hearing no :15 Moto Mix Operator Needed no :15 Sign Language no :15 Emotional no :15 Vision no :15 Laguage no 47-43-953751:15 Financial no :15 Vital signs Type Value Date Respiration Rate 18breaths per minute 53-60-070067: 10 Pulse 90beats per minute : Oxygen Saturation 97% :10 BP Systolic 145mmHg 62-22-227660:10 BP Diastolic 87mmHg 44-30-563504:10 Temperature 98.3F 46-52-519084:17 Height 63inches 45-69-154724:00 Weight 233.5LB 34-43-910844:00 Social history Type Value Smoking Status CURRENT HEAVY TOBACCO SMOKER Treatment Plan No treatment plan text is available for this visit. Hospital discharge instructions Discharge Date/Time 06-02-2015 14:15 Accompanied By Lisa Relationship other (explain) Comment: Aunt Dismissal Condition good Disposition on DC home Valuables yes Valuable Type billfold/purse Valuables Returned T patient DC Inst/Educ Give yes Exit Care Educ Given yes Med/Side Effects Rev yes PNE Vac never Flu Vac 04/2014 Tetanus Vac 06/2013 Diet Explained yes Follow up appt already scheduled Follow Up Appt D/T 06/09 1:50
--- OUTSIDE RECORDS SUMMARY | 2020-01-18 15:31 | XMS REPORT ---
Author Author [facility] Medic al Staff, TOMY Rashid Organization [facility] Address [address], [place] [address] Phone [phone] Care Team Providers Care Planner Internship Name Role Phone CHRISTOPHER YORK, CAROLEE PP [phone] Summary purpose TRANSITION OF CARE AUTO GENERATION [...] Code Type Description Date Performed Performing Physician 85619 CPT-4 EMERGENCY DEPT VISIT 08-23-2015 RADHA EATON 94211 CPT-4 EMERGENCY DEPT VISIT 08-23-2015 RADHA EATON Functional status Functional Status Finding Observation Time Abdomen Appearance obese :00 Abdomen soft :00 Ramírez no 69-78-809590:00 Urination normal : Quality sym/unlabored 06-72-635264:00 Cough absent : Secretions no :00 Breath Sounds RUL clear 87-54-812435:00 Breath Sounds RML clear : Breath Sounds RLL clear : Breath Sounds SARA clear : Breath Sounds LLL clear : Airway natural : Chest Tube no : Oxygen no : Oxygen Flow Rate RA : Temp >100.4 no : Temp <96.8 no : Chills with rigors no : HR > 90bpm yes : Respirations > 20 no : Systolic <90 no : headache stiff neck no : Nursing Note oxycodone 10mg PO admin. Dis charge instructions reviewed with pt-verbalized understanding. VS obtained, dc in good condition and ambulatory. Escorted to OBS for infusion. Comment: This result is a modification to a previously-entered result. It was modified on 08/23/15 at 18:48 by [employer]. :28 Vital signs Type Value Date Respiration Rate 18breaths per minute : Pulse 93beats per minute : Oxygen Saturation 97% : BP Systolic 135mmHg :28 BP Diastolic 86mmHg :28 Temperature 98.0F :28 Social history Type Value Smoking Status CURRENT EVERY DAY SMOKER Treatment Plan No treatment plan text is available for this visit. Hospital discharge instructions Dismissal Condition good Disposition on DC home DC Inst/Educ Give yes Med/Side Effects Rev yes PNE Vac none Flu Vac 2014 Tetanus Vac 2012
--- OUTSIDE RECORDS SUMMARY | 2020-01-18 15:31 | XMS REPORT ---
Author Author [facility] Medic al Staff, TOMY Rashid Organization [facility] Address [address], [place] [address] Phone [phone] Care Team Providers Care Smoking Pipe Maker Name Role Phone CAROLEE WHITE MD PP [phone] Summary purpose TRANSITION OF CARE AUTO GENERATION [...] Time Abdomen Appearance obese :25 Abdomen non-tender :25 Ramírez no :25 Urination normal :25 Quality sym/unlabored :25 Cough absent : Secretions yes : Airway natural :25 Chest Tube no :25 Oxygen no :30 Temp >100.4 no :25 Temp <96.8 no :25 Chills with rigors no : HR > 90bpm no :25 Respirations > 20 no :25 Systolic <90 no : headache stiff neck no :25 Rapid Resp no :25 Nursing Note Pt takes po hydrocodone per order. Dismissal instructions reviewed et pt voices understanding. Pt dismissed in stable condition. RN accompanies to registration area. :25 Vital signs Type Value Date Respiration Rate 20breaths per minute : Pulse 99beats per minute : Oxygen Saturation 96% :30 BP Systolic 147mmHg :30 BP Diastolic 82mmHg :30 Temperature 97.1F :30 Social history Type Value Smoking Status CURRENT EVERY DAY SMOKER Treatment Plan No treatment plan text is available for this visit. Hospital discharge instructions Dismissal Condition fair Disposition on DC home DC Inst/Educ Give yes Med/Side Effects Rev yes Comment: RX: hydrocodone 5/325 PNE Vac none Flu Vac 2014 Tetanus Vac current
--- OUTSIDE RECORDS SUMMARY | 2020-01-18 15:31 | XMS REPORT ---
Author Author [facility] Medic al Staff, TOMY Rashid Organization [facility] Address [address], [place] [address] Phone [phone] Care Team Providers Care Ultrasonic Hand Solderer Name Role Phone ROCHELLE YORK, LENARD PP [phone] Summary purpose TRANSITION OF CARE AUTO GENERATION [...] Status Finding Observation Time Abdomen Appearance obese :30 Abdomen soft :30 Ramírez no :30 Urination normal :30 Quality sym/unlabored :30 Cough absent :30 Secretions no :30 Breath Sounds RUL clear :30 Breath Sounds RML clear :30 Breath Sounds RLL clear :30 Breath Sounds SARA clear :30 Breath Sounds LLL clear 92-99-134979:30 Airway natural :30 Chest Tube no :30 Oxygen no 15-41-908904:25 Oxygen Flow Rate RA :25 Temp >100.4 no : Temp <96.8 no :30 Chills with rigors no : HR > 90bpm yes :30 Respirations > 20 no : Systolic <90 no : headache stiff neck no :30 Nursing Note Vs obtained. Pt has orders t o see a enrollment specialist. Pt stable to ambulate off toscano with script in hand and order faxed to wound clinic per [employer] Mixer. :25 Vital signs Type Value Date Respiration Rate 18breaths per minute : 25 Pulse 100beats per minute :2 5 Oxygen Saturation 100% :25 BP Systolic 148mmHg :25 BP Diastolic 76mmHg :25 Temperature 96.9F :25 Social history No Social History or smoking [...]
--- OUTSIDE RECORDS SUMMARY | 2020-01-18 15:32 | XMS REPORT ---
Author Author [facility] Medic al Staff, TOMY Rashid Organization [facility] Address [address], [place] [address] Phone [phone] Care Team Providers Care Shrinker Name Role Phone CAROLEE WHITE MD PP [phone] Summary purpose TRANSITION OF CARE AUTO GENERATION Chief Complaint and Reason for Visit Admit Diagnosis 1 UNCONTROLLABLE POST OPERATIO NAL Problem list No authorized problems tracked for continuity of care are available for this vis it. Encounters The following conditions tracked for encounter diagnoses were recorded for this visit: Finding or Diagnosis Status Certainty Chronicity Onset *POSTOPERATIVE PAIN Active *POSTOPERATIVE PAIN Active Medications Discharge Medications Status Medication Directions Current acetaminophen (TYLENOL) 100 ml 400 mL/hr Intravenous Give IV Q6 Hours As Needed for PAIN Current gemfibrozil 600 mg tablet 600 milligram (s) oral Twice a day Current naproxen sodium 220 mg capsule 220 demetrice gram (s) oral Twice a day as needed for as needed for pain Stopped diclofenac sodium 50 mg tablet,delayed r elease 50 milliliter(s) oral 4 xDaily As Needed Allergies, adverse reactions, alerts Allergen Category Ingredient [...] Finding Observation Time Hearing Prob Loc none : Vision Problems yes : Vision Correct Dev glasses : Ambulation Asst Dev none : Range of Motion full : Muscle Strength RUE 5 ROM full resist : Muscle Strength RLE 5 ROM full resist : Muscle Strength LUE 5 ROM full resist : Muscle Strength LLE 5 ROM full resist :26 Transfers assist x 1 : Ambulation in room : Balance steady : Bathing Assistance none : Eating Assistance none :00 Dressing Assistance none : Toileting Assistance none : Transfer Assistance none : Decline Slf Care/Mob no :00 Phys Cond Stable yes :00 Nutrition normal : Diet regular : Oral Cavity moist and intact : Teeth dentures :26 Dental Hygiene good :26 Abdomen Appearance obese :26 Abdomen soft : Bowel Sounds present : NG Tube no : Feeding Tube none :26 Ramírez no :26 Cont Bladder Irr no : Ostomy no : Stool normal : Urination normal : Urine Clarity clear : Urine Color straw :26 Quality sym/unlabored : Cough absent : Secretions no : Breath Sounds RUL clear : Breath Sounds RML clear :26 Breath Sounds RLL clear :26 Breath Sounds SARA clear : Breath Sounds LLL clear :26 Airway natural : Chest Tube no :26 Oxygen no :46 Oxygen Flow Rate RA : C-PAP no : BI-PAP no : Temp >100.4 no : Temp <96.8 no : Chills with rigors no : HR > 90bpm no : Respirations > 20 no : Systolic <90 no : headache stiff neck no : Rapid Resp no : IV Site Location L Hand : IV Type peripheral :20 IV Site Information discontinued : IV Site Start Attmpt 1 times :42 IV Site Isael 20 :27 IV Site Appearance WNL :20 IV Site Color clear :20 IV Site Patent yes :27 Dressing Changed yes :20 Dressing Type gauze :20 Nursing Note no answer x3 :00 Cognitive Status Finding Observation Time Oriented To Date 5 Yes : Oriented To Place 5 Yes :00 Name 3 Objects 3 Yes :00 Name Object in Rm 2 Yes : Recall 3 Objects 3 Yes :00 Repeats a Phrase 1 Yes :00 Follows Verbal Direc 3 Yes : Follows Written Dire 1 Yes :00 Write a Sentance 1 Yes : Draw an Object 1 Yes :00 Mini Mental Total 25 points :00 Less than 20 Phys not applicable : Learning Ability comprehends well : Neurological no :28 Psychological no :28 Physical no :28 Hearing no :28 Modeling Agency Manager Needed no :28 Sign Language no :28 Emotional no : Vision yes :28 Laguage no :28 Financial no :28 Vital signs Type Value Date Respiration Rate 18breaths per minute : 46 Pulse 72beats per minute :46 Oxygen Saturation 99% :46 BP Systolic 148mmHg :46 BP Diastolic 80mmHg :46 Temperature 97.3F :46 Height 63inches :56 Weight 233.5LB :56 Social history Type Value Smoking Status CURRENT EVERY DAY SMOKER Treatment Plan No treatment plan text is available for this visit. Hospital discharge instructions Discharge Date/Time 04/30/2015 15:20 Relationship friend Dismissal Condition good Disposition on DC home Valuables yes Valuable Type other (specify) Comment: laptop Valuables Returned T patient DC Inst/Educ Give yes Exit Care Educ Given yes Med/Side Effects Rev yes DC Med Rec Rev yes PNE Vac never Flu Vac 04/2014 Tetanus Vac 06/2013 Diet Explained yes Follow up appt already scheduled Follow Up Appt D/T 05/11/15 250
--- OUTSIDE RECORDS SUMMARY | 2020-01-18 15:32 | XMS REPORT ---
Author Author [facility] Medic al Staff, TOMY Rashid Organization [facility] Address [address], [place] [address] Phone [phone] Care Team Providers Care Automatic Stacker Name Role Phone CAROLEE WHITE MD PP [phone] Summary purpose TRANSITION OF CARE AUTO GENERATION Chief Complaint and Reason for Visit Admit Diagnosis 1 PHYSICAL THERAPY NEC Problem list No authorized problems tracked for [...]
--- OUTSIDE RECORDS SUMMARY | 2020-01-18 15:32 | XMS REPORT ---
Author Author [facility] Medic al Staff, TOMY Rashid Organization [facility] Address [address], [place] [address] Phone [phone] Care Team Providers Care Tape Edge Machine Operator Name Role Phone SILVANA MENON MD PP [phone] Summary purpose TRANSITION OF CARE AUTO GENERATION [...] headache stiff neck no :10 Nursing Note Pt to ER1 utilizing crutches . VS assessed. Triage complete by TOM Arguelles. Report to . :05 Vital signs Type Value Date Respiration Rate 18breaths per minute : 05 Pulse 104beats per minute :0 5 Oxygen Saturation 99% :05 BP Systolic 151mmHg :05 BP Diastolic 103mmHg :05 Temperature 98.7F :05 Height 63inches :05 Weight 230LB :05 Social history Type Value Smoking Status CURRENT EVERY DAY SMOKER Treatment Plan No treatment plan text is available for this visit. Hospital discharge instructions Dismissal Condition good Disposition on DC home DC Inst/Educ Give yes Med/Side Effects Rev yes PNE Vac none Flu Vac 2014 Tetanus Vac 2012
--- OUTSIDE RECORDS SUMMARY | 2020-01-18 15:32 | XMS REPORT ---
Author Author [facility] Medic al Staff, TOMY Rashid Organization [facility] Address [address], [place] [address] Phone [phone] Care Team Providers Care Pattern Maker Programer Name Role Phone CAROLEE WHITE MD PP [phone] Summary purpose TRANSITION OF CARE AUTO GENERATION [...] Functional Status Finding Observation Time Diet regular :40 Abdomen Appearance obese :40 Abdomen soft :40 Ramírez no :40 Urination normal :40 Quality sym/unlabored :40 Cough absent :40 Secretions no :40 Airway natural :40 Chest Tube no :40 Oxygen no :12 Temp >100.4 no :40 Temp <96.8 no :40 Chills with rigors no :40 HR > 90bpm no :40 Respirations > 20 no :40 Systolic <90 no :40 headache stiff neck no :40 Rapid Resp no :37 Nursing Note Discharge instructions given with pt verbally understanding. Pt vitals taken all WNL. Pt discharged to home in good condition by ambulation. :12 Vital signs Type Value Date Respiration Rate 18breaths per minute : 12 Pulse 80beats per minute :12 Oxygen Saturation 98% :12 BP Systolic 149mmHg :12 BP Diastolic 87mmHg :12 Temperature 97.3F :12 Social history Type Value Smoking Status CURRENT EVERY DAY SMOKER Treatment Plan No treatment plan text is available for this visit. Hospital discharge instructions Dismissal Condition good Disposition on DC home DC Inst/Educ Give yes Med/Side Effects Rev yes PNE Vac none Flu Vac 2014 Tetanus Vac current
--- OUTSIDE RECORDS SUMMARY | 2020-01-18 15:32 | XMS REPORT ---
Author Author [facility] Medic al Staff, TOMY Rashid Organization [facility] Address [address], [place] [address] Phone [phone] Summary purpose TRANSITION OF CARE AUTO GENERATION [...] Status Finding Observation Time Abdomen Appearance obese :05 Abdomen soft :05 Bowel Sounds present :05 Ramírez no :05 Urination normal :05 Quality sym/unlabored :05 Cough absent :05 Secretions no :05 Breath Sounds RUL clear :05 Breath Sounds RML clear :05 Breath Sounds RLL clear :05 Breath Sounds SARA clear :05 Breath Sounds LLL clear :05 Airway natural :05 Chest Tube no :05 Oxygen no :05 Temp >100.4 no :05 Temp <96.8 no :05 Chills with rigors no :05 HR > 90bpm no :05 Respirations > 20 no : Systolic <90 no : headache stiff neck no : Rapid Resp no :05 Nursing Note wound cleansed and dressed, no needs :00 Vital signs Type Value Date Respiration Rate 20breaths per minute : Pulse 75beats per minute : Oxygen Saturation 99% :05 BP Systolic 162mmHg :05 BP Diastolic 88mmHg :05 Temperature 98.0F :05 Social history Type Value Smoking Status CURRENT EVERY DAY SMOKER Treatment Plan No treatment plan text is available for this visit. Hospital discharge instructions Dismissal Condition good Disposition on DC home DC Inst/Educ Give yes Med/Side Effects Rev yes PNE Vac none Flu Vac 2014 Tetanus Vac current
--- OUTSIDE RECORDS SUMMARY | 2020-01-18 15:32 | XMS REPORT ---
Author Author [facility] Medic al Staff, TOMY Rashid Organization [facility] Address [address] [place] [address], [place] [address] Phone [phone] Care Team Providers Care Pig Furnace Operator Name Role Phone SONIA WASTE SALVAGER, EDDIE PP [phone] SONIA WASTE SALVAGER, EDDIE PP [phone] Summary purpose TRANSITION OF CARE AUTO GENERATION [...] Code Type Description Date Performed Performing Physician 86.3 ICD9-CM OTH LOCAL EXC LESION 02-25-2015 71.3 ICD9-CM LOCAL VULVAR EXCIS NEC 02-25-2015 86.3 ICD9-CM OTH LOCAL EXC LESION 02-25-2015 86.3 ICD9-CM OTH LOCAL EXC LESION 02-25-2015 86.3 ICD9-CM OTH LOCAL EXC LESION 02-25-2015 86.3 ICD9-CM OTH LOCAL EXC LESION 02-25-2015 55511 CPT-4 EXC TR-EXT B9+RICARDA 0.6-1 CM 02-25-2015 CATY GARZA 45224 CPT-4 EXC TR-EXT B9+RICARDA 1.1-2 CM 02-25-2015 CATY GARZA 59195 CPT-4 EXC TR-EXT B9+RICARDA 1.1-2 CM 02-25-2001 CATY GARZA 24042 CPT-4 EXC TR-EXT B9+RICARDA 1.1-2 CM 02-25-2015 CATY GARZA 05679 CPT-4 EXC TR-EXT B9+RICARDA 1.1-2 CM 02-25-2001 CATY GREG 12160 CPT-4 EXC H-F-NK-SP B9+RICARDA 1.1-2 02-25-2015 CATY GREG J7120 CPT-4 RINGERS LACTATE INFUSION 02-25-2015 Margo LG GREG C9290 CPT-4 INJ, BUPIVICAINE LIPOSOME 02-25-2015 CATY GREG J2250 CPT-4 INJ MIDAZOLAM HYDROCHLORIDE 02-25-2015 CATY GREG J3010 CPT-4 FENTANYL CITRATE INJECITON 02-25-2015 CATY GREG J2704 CPT-4 INJ, PROPOFOL, 10 MG 02-25-2015 CATY GREG J7120 CPT-4 RINGERS LACTATE INFUSION 02-25-2015 Margo LG GREG 97390 CPT-4 SPECIAL SUPPLIES 02-25-2015 CATY COA ELIGIO 86076 CPT-4 SPECIAL SUPPLIES 02-25-2015 CATY COA ELIGIO 23857 CPT-4 SPECIAL SUPPLIES 02-25-2015 CATY COA ELIGIO 84279 CPT-4 SPECIAL SUPPLIES 02-25-2015 CATY COA ELIGIO 26918 CPT-4 SPECIAL SUPPLIES 02-25-2015 CATY COA ELIGIO 05495 CPT-4 SPECIAL SUPPLIES 02-25-2015 CATY COA ELIGIO Functional status Functional Status Finding Observation Time Hearing Prob Loc none 19-55-360003:48 Vision Problems yes 01-82-278670:48 Vision Correct Dev glasses 28-96-410488:48 Ambulation Asst Dev none 35-50-868727:48 Range of Motion full 49-97-228075:55 Muscle Strength RUE 5 ROM full resist 84-50-403579:55 Muscle Strength RLE 5 ROM full resist :55 Muscle Strength LUE 5 ROM full resist 94-74-329230:55 Muscle Strength LLE 5 ROM full resist 02-96-936897:55 Transfers assist x 1 07-16-749457:55 Ambulation in room 61-01-753534:55 Balance unsteady :55 Bathing Assistance none :48 Eating Assistance none :48 Dressing Assistance none :48 Toileting Assistance none : Transfer Assistance none :48 Decline Slf Care/Mob no :48 Phys Cond Stable yes :48 Nutrition normal :55 Diet regular :55 Oral Cavity moist and intact : Teeth dentures :55 Dental Hygiene good :55 Abdomen Appearance [...] :55 Chest Tube no :55 Oxygen no :43 C-PAP no :55 BI-PAP no :55 Temp >100.4 no : Temp <96.8 no :55 Chills with rigors no :55 HR > 90bpm no :55 Respirations > 20 no :55 Systolic <90 no :55 headache stiff neck no 39-17-701733:55 Rapid Resp no 83-61-939000:55 IV Site Location left hand :35 IV Type peripheral :35 IV Site Information discontinued : IV Site Start Attmpt 1 times Comment: 1% Lidocaine was used :15 IV Site Isael 20 :35 IV Site Appearance WNL :35 IV Site Color clear : IV Site Patent yes :35 Dressing Type occlusive :35 Nursing Note pt ambulatory to private veh icle and dismissed at this time. pt denies any questions about home instructions. belongings and dc paperwork in hand. grandmother to drive pt home. :45 Cognitive Status Finding Observation Time Learning Ability comprehends well :40 Neurological no :40 Psychological no :40 Physical no :40 Hearing no :40 Steamfitter Apprentice Needed no :40 Sign Language no :40 Emotional no :40 Vision yes :40 Laguage no :40 Financial no :40 Vital signs Type Value Date Respiration Rate 18breaths per minute : Pulse 91beats per minute :43 Oxygen Saturation 94% :43 BP Systolic 161mmHg :43 BP Diastolic 90mmHg :43 Temperature 96.7F :55 Height 63inches :00 Weight 220LB :00 Social history Type Value Smoking Status CURRENT EVERY DAY SMOKER Treatment Plan No treatment plan text is available for this visit. Hospital discharge instructions Discharge Date/Time 02/25/15 1145 Accompanied By Ceci Carrillo other (explain) Comment: Grandmother Dismissal Condition good Disposition on DC home Valuables yes Valuable Type cell phone Valuables Returned T patient DC Inst/Educ Give yes Exit Care Educ Given yes Med/Side Effects Rev yes PNE Vac never Flu Vac 04/2014 Tetanus Vac 06/2013 Diet Explained yes Follow up appt appt made (specify) Follow Up Appt D/T 03/04/15 2883
--- OUTSIDE RECORDS SUMMARY | 2020-01-18 15:32 | XMS REPORT ---
Author Author [facility] Medic al Staff, TOMY Rashid Organization [facility] Address [address], [place] [address] Phone [phone] Care Team Providers Care Paintings Restorer Name Role Phone CAROLEE WHITE MD PP [phone] CAROLEE WHITE MD PP [phone] Summary purpose TRANSITION OF CARE AUTO GENERATION [...] Finding Observation Time Hearing Prob Loc none 38-55-038717:41 Vision Problems yes 72-95-109780:41 Vision Correct Dev glasses :41 Ambulation Asst Dev none :41 Range of Motion full :10 Muscle Strength RUE 5 ROM full resist 30-15-792109:10 Muscle Strength RLE 5 ROM full resist 25-40-777247:10 Muscle Strength LUE 5 ROM full resist 55-11-296387:10 Muscle Strength LLE 5 ROM full resist 62-45-586302:10 Transfers assist x 1 86-10-298977:10 Ambulation in room 73-71-011471:10 Balance steady 28-89-617921:10 Bathing Assistance none :41 Eating Assistance none :41 Dressing Assistance none :41 Toileting Assistance none :41 Transfer Assistance none :41 Decline Slf Care/Mob no :41 Phys Cond Stable yes :41 Nutrition normal :10 Diet regular 51-12-452092:10 Oral Cavity moist and intact :10 Teeth dentures :10 Dental Hygiene good 51-60-882354:10 Abdomen Appearance obese :10 Abdomen soft :10 Bowel Sounds present :10 NG Tube no :10 Feeding Tube none :10 Ramírez no :10 Cont Bladder Irr no 18-52-513536:10 Ostomy no :10 Stool normal 77-38-852346:10 Urination normal 94-61-904700:10 Quality sym/unlabored :10 Cough absent :10 Secretions no :10 Breath Sounds RUL clear :10 Breath Sounds RML clear :10 Breath Sounds RLL clear :10 Breath Sounds SARA clear :10 Breath Sounds LLL clear 00-38-843068:10 Airway natural :10 Chest Tube no :10 Oxygen no 12-31-795208:00 C-PAP no 10-82-736439:10 BI-PAP no :10 Temp >100.4 no :10 Temp <96.8 no :10 Chills with rigors no :10 HR > 90bpm no :10 Respirations > 20 no 68-15-791116:10 Systolic <90 no :10 headache stiff neck no :10 Rapid Resp no :10 IV Site Location L AC 71-37-717724:05 IV Type peripheral 81-98-936909:05 IV Site Information discontinued 18-86-728412:05 IV Site Isael 20 47-29-716949:10 IV Site Appearance WNL :10 IV Site Color clear :10 IV Site Patent yes :10 Dressing Type occlusive :10 Nursing Note Discharge instr provided, pt verb understanding. IV dc'd. Pt dc'd to home in stable condition ambulatory with in personal vehical. Belongings intact. :10 Cognitive Status Finding Observation Time Learning Ability comprehends well :10 Neurological no 28-08-743453:10 Psychological no 14-26-463362:10 Physical no 80-66-709977:10 Hearing no :10 Narcotics Investigator Needed no 16-27-353351:10 Sign Language no :10 Emotional no :10 Vision yes 39-30-087825:10 Laguage no 71-61-116497:10 Financial no :10 Vital signs Type Value Date Respiration Rate 18breaths per minute 83-75-450723: 00 Pulse 79beats per minute :00 Oxygen Saturation 99% 61-96-191575:00 BP Systolic 147mmHg 03-91-889473:00 BP Diastolic 101mmHg 74-70-106675:00 Temperature 97.4F 59-69-518144:06 Height 63inches 19-71-166327:40 Weight 225LB 85-58-873778:40 Social history Type Value Smoking Status CURRENT [...] made (specify) Follow Up Appt D/T 01/05/15 6018
--- OUTSIDE RECORDS SUMMARY | 2020-01-18 15:32 | XMS REPORT ---
Author Author [facility] Medic al Staff, TOMY Rashid Organization [facility] Address [address], [place] [address] Phone [phone] Care Team Providers Care Supervisor Beam Department Name Role Phone CHRISTOPHER YORK, CAROLEE PP [phone] Summary purpose TRANSITION OF CARE AUTO GENERATION [...] diagnostic tests and/or laboratory data RESULTS Chemistry 87-19-020099:15:00 Result Normal Range Units Sodium 134 134-145 mEq/l Potassium 4.0 3.5-5.1 mEq/l Chloride 99 98-107 mEq/l CO2 H 28.5 22-28 mEq/l Glucose 88 70-105 mg/dl BUN L 5 7-18 mg/dl Creatinine 0.61 0.6-1.0 mg/dl Calcium 8.9 8.4-10.2 mg/dl TP - Total Protein 7.3 6.0-8.3 g /dl Albumin 3.5 3.5-5 g/dl Bilirubin - Total 0.2 0.1-1.0 mg /dl AST 11 10-42 IU/L ALT 29 12-65 IU/L ALP 67 25-72 IU/L Osmolality L 264.9 280-300 mOsm/L Albumin/Globulin Ratio 0.9 0-8 Anion GAP L 6.5 8-16 BUN/Creatinine Ratio L 8.2 10-20 Estimated GFR 121 >= 60 mL/min /1.7 Hematology :15:00 Result Normal Range Units WBC H 11.0 4.8-10.8 103/uL RBC 5.2 4.2-5.4 106/uL HGB 15.0 12.0-16.0 g/dl HCT 44.4 36.9-47.0 % MCV 85.7 81-99 FL MCH 29.0 27-31 pg MCHC 33.8 33-37 g/dl RDW 12.1 11.5-15.5 % PLT 297 130-400 103/uL MPV 9.1 7.3-10.4 FL Neutro % 66.9 40-70 % Lymph % 24.7 20-40 % [place] % 6.0 0-10.0 % Eos % 1.4 0-7.0 % Baso % 0.5 0-2 % Neutro # 7.4 1.5-7.5 103/uL Lymph # 2.7 0.9-4.0 103/uL [place] # 0.7 0-0.8 103/uL Eos # 0.2 0-0.6 103/uL Baso # 0.1 0-0.1 103/uL Radiology Results :15:00 Result Normal Range Units MPV 9.1 7.3-10.4 FL History of procedures No procedures recorded for this patient visit. Functional status Functional Status Finding Observation Time Diet regular :22 Abdomen Appearance obese :22 Abdomen soft :22 Ramírez no :22 Urination normal :22 Quality sym/unlabored :22 Cough absent :22 Secretions no :22 Breath Sounds RUL clear :22 Breath Sounds RML clear :22 Breath Sounds RLL clear :22 Breath Sounds SARA clear :22 Breath Sounds LLL clear :22 Airway natural :22 Chest Tube no : Oxygen no : Temp >100.4 no : Temp <96.8 no : Chills with rigors no : HR > 90bpm no : Respirations > 20 no : Systolic <90 no : headache stiff neck no :22 IV Site Location LAC :20 IV Type peripheral :20 IV Site Information new :20 IV Site Start Attmpt 1 times :20 IV Site Isael 20 :20 IV Site Appearance WNL :20 IV Site Color clear :20 IV Site Patent yes :20 Dressing Type occlusive :20 Nursing Note dc inst discussed with pt. d cd to home in good condition with script x 1 :00 Vital signs Type Value Date Respiration Rate 18breaths per minute : 00 Pulse 80beats per minute :00 Oxygen Saturation 97% :00 BP Systolic 134mmHg :00 BP Diastolic 77mmHg :00 Temperature 98.0F 20-31-143715:00 Social history Type Value Smoking Status CURRENT EVERY DAY SMOKER Treatment Plan No treatment plan text is available for this visit. Hospital discharge instructions Dismissal Condition good Disposition on DC home DC Inst/Educ Give yes Med/Side Effects Rev yes PNE Vac none Flu Vac 2014 Tetanus Vac 2012
--- OUTSIDE RECORDS SUMMARY | 2020-01-18 15:32 | XMS REPORT ---
Author Author [facility] Medic al Staff, TOMY Rashid Organization [facility] Address [address], [place] [address] Phone [phone] Care Team Providers Care Manager Payment Name Role Phone ROCHELLE YORK, LENARD PP [phone] LENARD BYRD MD, PP [phone] Summary purpose TRANSITION OF CARE AUTO GENERATION [...] Relevant diagnostic tests and/or laboratory data RESULTS 04-79-403675:46:00 Progress Note PROGRESS NOTE 09/15/2015 09:46:43 DATE [...] us some yury nce about antibiotic choices. Lenard Byrd MD AUTOMOBILE LOCATOR/nh 09/15/2015 09:46:43/2015 14:28:14 [facility]: [facility] [address] [place] [address]<END HEADER> Routine Urinalysis 99-46-292066:10:00 Result Normal Range Units Color YELLOW Clarity Clear Specific [place] 1.020 1.003-1.035 pH 6.5 4.5-8.0 Glucose NEGATIVE Bilirubin NEGATIVE Ketones NEGATIVE Protein NEGATIVE Urobilinogen 0.2 0-0.2 E.U./dL Nitrites NEGATIVE Blood NEGATIVE Leukocytes NEGATIVE WBCs No WBC's Seen RBCs 0-5 Squamous Epithelial Few Bacteria 1+ Routine Cultures 41-87-060354:10:00 Wound Culture Plate Date and Time 09/13/2015 23:10 Source WALKER RECTAL CULTURE REPORT Moderate Amount Group-B Strep. Sensitivity to follow Release Date/Time: 0 09/15/2015 08:16 GRAM STAIN 2+ Gram Positive Cocci Occasional Gram Variable Rods Release Date/Time: 0 09/14/2015 07:46 Wound Culture Plate Date and Time 09/13/2015 23:10 SourceTHIGH CULTURE REPORT Large Amount Staphylococcus Aureus. Sensitivity to follow Release Date/Time: 0 09/15/2015 07:08 GRAM STAIN Occasional Gram Positive Cocci Release Date/Time: 0 09/14/2015 07:47 Chemistry 57-43-525027:35:00 Result Normal Range Units Sodium 138 134-145 mEq/l Potassium 3.8 3.5-5.1 mEq/l Chloride 104 98-107 mEq/l CO2 25.1 22-28 mEq/l Glucose 96 70-105 mg/dl BUN L 4 7-18 mg/dl Creatinine L 0.55 0.6-1.0 mg/dl Calcium L 8.0 8.4-10.2 mg/dl Osmolality L 272.4 280-300 mOsm/L Anion GAP 8.9 8-16 BUN/Creatinine Ratio L 7.3 10-20 Estimated GFR 135 >= 60 mL/min /1.7 96-50-223184:11:00 Result Normal Range Units Sodium 138 134-145 [...] GFR 129 >= 60 mL/min /1.7 Hematology 62-23-993188:35:00 Result Normal Range Units WBC 7.4 4.8-10.8 [...] 2.0 0-5 % Lymphs 21.0 20-40 % [place] 2.0 0-10 % Special Chemistry 04-46-829459:11:00 Result Normal Range Units Hemoglobin A1C 5.0 [...] Transfers independent :45 Ambulation up ad hernandez 06-45-496846:45 Balance steady 37-26-299633:45 Bathing Assistance none :24 Eating Assistance none :24 Dressing Assistance none :24 Toileting Assistance none :24 Transfer Assistance none :24 Decline Slf Care/Mob no :24 Phys Cond Stable yes :24 Nutrition normal 29-06-769925:45 Diet regular 23-01-260452:45 Oral Cavity moist and intact :45 Teeth none :45 Dental Hygiene poor 05-19-655895:45 Abdomen Appearance obese :45 Abdomen soft 49-57-542029:45 Bowel Sounds present 82-50-033229:45 NG Tube no :45 Feeding Tube none :45 Ramírez no :45 Cont Bladder Irr no :45 Ostomy no :45 Stool Comment: none noted :37 Urination normal :45 Urine Clarity clear :45 Urine Color straw 02-54-772140:45 Quality sym/unlabored 73-53-148741:45 Cough absent :45 Secretions no :45 Breath Sounds RUL clear :45 Breath Sounds RML clear :45 Breath Sounds RLL clear :45 Breath Sounds SARA clear :45 Breath Sounds LLL clear :45 Airway natural :45 Chest Tube no :45 Oxygen no :45 Oxygen Flow Rate ra :37 C-PAP no 36-10-049506:45 BI-PAP no :45 New Infection wound infection :45 Temp >100.4 no :45 Temp <96.8 no :45 Chills with rigors no :45 HR > 90bpm no :45 Respirations > 20 no : Systolic <90 no :45 headache stiff neck no :45 WBC > 09155 no :45 WBC < 4000 no :45 IV Site Location RAC :45 IV Type peripheral :45 IV Site Information existing : IV Site Start Attmpt 1 times :28 IV Site Isael 20 :45 IV Site Appearance WNL : IV Site Color clear : IV Site Patent yes :45 Dressing Changed yes :28 Dressing Type occlusive :45 Nursing Note Pt given dismissal instructi ons et verbalized an understanding of instructions given. :30 Cognitive Status Finding Observation Time Oriented To [...] :15 Physical no :15 Hearing no :15 Medical Insurance Coding Specialist Needed no :15 Sign Language no :15 Emotional no :15 Vision no 56-39-683225:15 Laguage no 30-73-995672:15 Financial no 71-15-354492:15 Vital signs Type Value Date Respiration Rate [...]
--- OUTSIDE RECORDS SUMMARY | 2020-01-18 15:32 | XMS REPORT ---
Author Author [facility] Medic al Staff, TOMY Rashid Organization [facility] Address [address], [place] [address] Phone [phone] Care Team Providers Care Child Development Associate Teacher Name Role Phone CAROLEE WHITE MD PP [phone] Summary purpose TRANSITION OF CARE AUTO GENERATION Chief Complaint and Reason for Visit Admit Diagnosis 1 DISRUPT EXTERNAL OP WND Problem list No authorized problems tracked for [...] Code Type Description Date Performed Performing Physician 86.59 ICD9-CM CLOSURE SKIN/SUBQ TISSUE 12-26-2014 J1170 CPT-4 HYDROMORPHONE INJECTION 12-26-2014 AILIN SEALS NATALIYA 77093 CPT-4 EMERGENCY DEPT VISIT 12-26-2014 RADHA NATALIYA 41821 CPT-4 THER/PROPH/DIAG INJ, SC/IM 12-26-2014 RADHA NATALIYA 08266 CPT-4 LAYER CLOSURE OF WOUND(S) 12-26-2014 RADHA MUELLERNDT 02037 CPT-4 LAYER CLOSURE OF WOUND(S) 12-26-2014 RADHA WALKER Functional status Functional Status Finding Observation Time Diet regular 83-64-498498:25 Abdomen Appearance obese 65-82-174034:25 Abdomen soft : Bowel Sounds present :25 Ramírez no : Urination normal : Quality sym/unlabored : Cough absent : Secretions no : Breath Sounds RUL clear : Breath Sounds RML clear : Breath Sounds [...] Respiration Rate 18breaths per minute : Pulse 78beats per minute : Oxygen Saturation 100% :35 BP Systolic 138mmHg [...]
--- OUTSIDE RECORDS SUMMARY | 2020-01-18 15:32 | XMS REPORT ---
Author Author [facility] Medic al Staff, TOMY Rashid Organization [facility] Address [address], [place] [address] Phone [phone] Care Team Providers Care Automotive Sales Associate Name Role Phone SILVANA MENON MD PP [phone] Summary purpose TRANSITION OF CARE AUTO GENERATION [...] Muscle Strength RUE 5 ROM full resist :30 Muscle Strength RLE 5 ROM full resist :30 Muscle Strength LUE 5 ROM full resist :30 Muscle Strength LLE 5 ROM full resist :30 Diet regular :30 Abdomen Appearance round :30 Abdomen non-tender :30 Ramírez no :30 Urination normal :30 Quality sym/unlabored : Cough absent : Secretions no : Airway natural : Chest Tube no : Oxygen no : Temp >100.4 no : Temp <96.8 no : Chills with rigors no : HR > 90bpm no : Respirations > 20 no : Systolic <90 no : headache stiff neck no : Nursing Note Reviewed dc instructions and medications with pt, pt verbalized understanding. Pt dc to home in good condition with Lortab 5/325mg po #4 homepack, script for Lortab and script for Ibuprofen. Pt ambulated off unit accompanied by friend without difficulty. :58 Vital signs Type Value Date Respiration Rate 18breaths per minute : 55 Pulse 103beats per minute :5 5 Oxygen Saturation 99% :55 BP Systolic 128mmHg :55 BP Diastolic 86mmHg :55 Temperature 97.8F :55 Social history No Social History or smoking [...]
--- OUTSIDE RECORDS SUMMARY | 2020-01-18 15:32 | XMS REPORT ---
Author Author [facility] Medic al Staff, TOMY Rashid Organization [facility] Address [address] [place], [place] [address] Phone [phone] Care Team Providers Care Senior Architectural Designer Name Role Phone CAROLEE WHITE MD PP [phone] Summary purpose TRANSITION OF CARE AUTO GENERATION [...] Relevant diagnostic tests and/or laboratory data RESULTS Blood Cultures 93-75-275008:15:00 Blood Culture Plate Date and Time 08/21/2015 23:34 SourceBLOOD CULTURE REPORT NoGrowth at 1 day. Unless otherwise notified. Final report in 5 Days. Release Date/Time: 0 08/23/2015 08:15 CULTURE REPORT No growth in 5 days. Release Date/Time: 0 08/27/2015 07:46 83-30-703604:10:00 Blood Culture Plate Date and Time 08/21/2015 23:34 SourceBLOOD CULTURE REPORT NoGrowth at 1 day. Unless otherwise notified. Final report in 5 Days. Release Date/Time: 0 08/23/2015 08:15 CULTURE REPORT No growth in 5 days. Release Date/Time: 0 08/27/2015 07:49 Chemistry 50-91-736108:15:00 Result Normal Range Units Sodium 134 134-145 [...] GFR 121 >= 60 mL/min /1.7 Hematology 49-60-165000:15:00 Result Normal Range Units WBC H 11.0 4.8-10.8 103/uL RBC 5.2 4.2-5.4 106/uL HGB 15.0 12.0-16.0 g/dl HCT 44.4 36.9-47.0 % MCV 85.7 81-99 FL MCH 29.0 27-31 pg MCHC 33.8 33-37 g/dl RDW 12.1 11.5-15.5 % PLT 297 130-400 103/uL MPV 9.1 7.3-10.4 FL Neutro % 66.9 40-70 % Lymph % 24.7 20-40 % [place] % 6.0 0-10.0 % Eos % 1.4 0-7.0 % Baso % 0.5 0-2 % Neutro # 7.4 1.5-7.5 103/uL Lymph # 2.7 0.9-4.0 103/uL Karnes # 0.7 0-0.8 103/uL Eos # 0.2 0-0.6 103/uL Baso # 0.1 0-0.1 103/uL Radiology Results [id number]:15:00 Result Normal Range Units MPV 9.1 7.3-10.4 FL History of procedures Procedure Code Code Type Description Date Performed Performing Physician 02291 CPT-4 ROUTINE VENIPUNCTURE 08-21-2015 ЮЛИЯ CHENG 16035 CPT-4 ROUTINE VENIPUNCTURE 08-21-2015 ЮЛИЯ CHENG 50065 CPT-4 COMPREHEN METABOLIC PANEL 08-21-2015 ЮЛИЯ CHENG 38336 CPT-4 COMPLETE CBC W/AUTO DIFF WBC 08-21-2015 ЮЛИЯ CHENG 81404 CPT-4 BLOOD CULTURE FOR BACTERIA 08-21-2015 ЮЛИЯ CHENG 11628 CPT-4 BLOOD CULTURE FOR BACTERIA 08-21-2015 ЮЛИЯ CHENG J1170 CPT-4 HYDROMORPHONE INJECTION 08-21-2015 DA CATRACHITA CHENG J1170 CPT-4 HYDROMORPHONE INJECTION 08-22-2015 DA CATRACHITA CHENG J3370 CPT-4 VANCOMYCIN HCL INJECTION 08-21-2015 D PENNIE CHENG J7040 CPT-4 NORMAL SALINE SOLUTION INFUS 08-21-2015 ЮЛИЯ CHENG 20503 CPT-4 EMERGENCY DEPT VISIT 08-21-2015 ЮЛИЯ CHENG 04532 CPT-4 EMERGENCY DEPT VISIT 08-21-2015 ЮЛИЯ CHENG 84698 CPT-4 THER/PROPH/DIAG INJ IV PUSH 08-21-2015 ЮЛИЯ CHENG 48263 CPT-4 TX/PRO/DX INJ NEW DRUG ADDON 08-21-2015 ЮЛИЯ CHENG 89767 CPT-4 TX/PRO/DX INJ SAME DRUG ENTERPRISE ACCOUNT MANAGER 08-21-2015 ЮЛИЯ CHENG Functional status Functional Status Finding Observation Time Diet regular 63-17-708129:22 Abdomen Appearance obese 94-11-358929:22 Abdomen soft 91-23-702875:22 Ramírez no 82-87-989245:22 Urination normal 60-16-228058:22 Quality sym/unlabored :22 Cough absent :22 Secretions no :22 Breath Sounds RUL clear :22 Breath Sounds RML clear :22 Breath Sounds RLL clear :22 Breath Sounds SARA clear :22 Breath Sounds LLL clear 48-89-110414:22 Airway natural :22 Chest Tube no :22 Oxygen no :00 Temp >100.4 no : Temp <96.8 no [...] Appearance WNL :20 IV Site Color clear : IV Site Patent yes :20 Dressing Type occlusive :20 Nursing Note dc inst discussed with pt. d cd to home in good condition with script x 1 :00 Vital signs Type Value Date Respiration Rate 18breaths per minute : 00 Pulse 80beats per minute :00 Oxygen Saturation 97% :00 BP Systolic 134mmHg :00 BP Diastolic 77mmHg :00 Temperature 98.0F :00 Social history Type Value Smoking Status CURRENT EVERY DAY SMOKER Treatment Plan No treatment plan text is available for this visit. Hospital discharge instructions Dismissal Condition good Disposition on DC home DC Inst/Educ Give yes Med/Side Effects Rev yes PNE Vac none Flu Vac 2014 Tetanus Vac 2012
--- OUTSIDE RECORDS SUMMARY | 2020-01-18 15:32 | XMS REPORT ---
Author Author [facility] Medic al Staff, TOMY Rashid Organization [facility] Address [address] [place], [place] [address] Phone [phone] Care Team Providers Care Supervisor Boilermaking Shop Name Role Phone SILVANA MENON MD PP [phone] Summary purpose TRANSITION OF CARE AUTO GENERATION [...] Code Type Description Date Performed Performing Physician 24843 CPT-4 EMERGENCY DEPT VISIT 01-29-2016 RADHA EATON 75598 CPT-4 EMERGENCY DEPT VISIT 01-29-2016 RADHA EATON Functional status Functional Status Finding Observation Time Muscle Strength RUE 5 ROM full resist 96-56-420807:30 Muscle Strength RLE 5 ROM full resist 42-67-055497:30 Muscle Strength LUE 5 ROM full resist 11-21-874640:30 Muscle Strength LLE 5 ROM full resist 61-57-533768:30 Diet regular 33-19-509011:30 Abdomen Appearance round :30 Abdomen non-tender :30 Ramírez no : Urination normal : Quality [...]
--- OUTSIDE RECORDS SUMMARY | 2020-01-18 15:32 | XMS REPORT ---
Author Author [facility] Medic al Staff, TOMY Rashid Organization [facility] Address [address] [place], [place] [address] Phone [phone] Care Team Providers Care Second Mate Name Role Phone CHRISTOPHER YORK, CAROLEE PP [phone] Summary purpose TRANSITION OF CARE AUTO GENERATION [...] Status Finding Observation Time Abdomen Appearance obese :10 Abdomen soft :10 Ramírez no :10 Urination normal :10 Quality sym/unlabored :10 Cough absent :10 Secretions no :10 Airway natural :10 Chest Tube no :10 Oxygen no :08 Temp >100.4 no :10 Temp <96.8 yes :10 Chills with rigors no :10 HR > 90bpm no :10 Respirations > 20 no :10 Systolic <90 no :10 headache stiff neck no :10 Rapid Resp no :10 Nursing Note Pt given po med at this time. 10-21-2014 18:09 Vital signs Type Value Date Respiration Rate 20breaths per minute : 08 Pulse 76beats per minute :08 Oxygen Saturation 98% :08 BP Systolic 129mmHg :08 BP Diastolic 70mmHg :08 Temperature 98.0F :08 Social history Type Value Smoking Status CURRENT EVERY DAY SMOKER Treatment Plan No treatment plan text is available for this visit. Hospital discharge instructions Dismissal Condition fair Disposition on DC home DC Inst/Educ Give yes Med/Side Effects Rev yes PNE Vac none Flu Vac 2014 Tetanus Vac current
--- OUTSIDE RECORDS SUMMARY | 2020-01-18 15:32 | XMS REPORT ---
Author Author [facility] Medic al Staff, TOMY Rashid Organization [facility] Address [address] [place], [place] [address] Phone [phone] Care Team Providers Care Seafood Service Team Member Name Role Phone CAROLEE WHITE MD PP [phone] Summary purpose TRANSITION OF CARE AUTO GENERATION [...] Functional status Functional Status Finding Observation Time Oxygen no :42 Temp >100.4 no :49 Temp <96.8 no :49 Chills with rigors no :49 HR > 90bpm no :49 Respirations > 20 no :49 Systolic <90 no :49 headache stiff neck no :49 Rapid Resp no :49 Nursing Note Discharge instructions went over with pt; verbalizes understandin. Pt discharged home in good condtion. :45 Vital signs Type Value Date Respiration Rate 18breaths per minute : 42 Pulse 93beats per minute :42 Oxygen Saturation 98% :42 BP Systolic 137mmHg :42 BP Diastolic 62mmHg :42 Temperature 98.4F :42 Height 63inches :50 Weight 225LB :50 Social history Type Value Smoking Status CURRENT EVERY DAY SMOKER Treatment Plan No treatment plan text is available for this visit. Hospital discharge instructions Dismissal Condition good Disposition on DC home DC Inst/Educ Give yes Med/Side Effects Rev yes Flu Vac 2014
--- OUTSIDE RECORDS SUMMARY | 2020-01-18 15:32 | XMS REPORT ---
Author Author [facility] Medic al Staff, TOMY Rashid Organization [facility] Address [address] [place], [place] [address] Phone [phone] Care Team Providers Care Fiber Technician Name Role Phone CAROLEE WHITE MD PP [phone] CAROLEE WHITE MD, PP [phone] Summary purpose TRANSITION OF CARE AUTO GENERATION [...] Code Type Description Date Performed Performing Physician 39816 CPT-4 ELECTRIC STIMULATION THERAPY 2014 CAROLEE WHITE 96371 CPT-4 MECHANICAL TRACTION THERAPY 2014 CAROLEE WHITE 08740 CPT-4 ELECTRIC STIMULATION THERAPY 09-14-2014 CAROLEE WHITE 58893 CPT-4 MECHANICAL TRACTION THERAPY 09-14-2014 CAROLEE WHITE Functional status No functional or cognitive status [...]
--- OUTSIDE RECORDS SUMMARY | 2020-01-18 15:32 | XMS REPORT ---
Author Author [facility] Medic al Staff, OTMY Rashid Organization [facility] Address [address] [place], [place] [address] Phone [phone] Care Team Providers Care Surveyor Hydrographic Name Role Phone CAROLEE WHITE MD PP [phone] Summary purpose TRANSITION OF CARE AUTO GENERATION [...] Code Type Description Date Performed Performing Physician 30474 CPT-4 EMERGENCY DEPT VISIT 01-19-2015 RADHA EATON 28761 CPT-4 EMERGENCY DEPT VISIT 01-19-2015 RADHA EATON Functional status Functional Status Finding Observation Time Abdomen Appearance obese :24 Abdomen soft :24 Bowel Sounds present :24 Ramírez no :24 Urination normal :24 Quality sym/unlabored :24 Cough absent :24 Secretions no :24 Breath Sounds RUL clear :24 Breath Sounds RML clear :24 Breath Sounds RLL clear :24 Breath Sounds SARA clear :24 Breath Sounds LLL clear :24 Airway natural : Chest Tube no : Oxygen no :14 Temp >100.4 no :24 Temp <96.8 no :24 Chills with rigors no : HR > 90bpm no : Respirations > 20 no :24 Systolic <90 no : headache stiff neck no :24 Rapid Resp no :24 Nursing Note dc instructions given. patie nt given homepack of hydrocodone and zofran. ambulated from unit in stable condition. :14 Vital signs Type Value Date Respiration Rate 20breaths per minute : 14 Pulse 85beats per minute :14 Oxygen Saturation 99% :14 BP Systolic 115mmHg :14 BP Diastolic 64mmHg :14 Temperature 98.0F 87-08-123488:14 Social history Type Value Smoking Status CURRENT EVERY DAY SMOKER Treatment Plan No treatment plan text is available for this visit. Hospital discharge instructions Dismissal Condition good Disposition on DC home DC Inst/Educ Give yes Med/Side Effects Rev yes PNE Vac none Flu Vac 2014 Tetanus Vac current
--- OUTSIDE RECORDS SUMMARY | 2020-01-18 15:32 | XMS REPORT ---
Author Author [facility] Medic al Staff, TOMY Rashid Organization [facility] Address [address] [place], [place] [address] Phone [phone] Care Team Providers Care Railcar Brake Operator Name Role Phone SONIA SHELLFISH SHUCKER, EDDIE PP [phone] SONIA SHELLFISH SHUCKER, EDDIE PP [phone] Summary purpose TRANSITION OF CARE AUTO GENERATION Chief Complaint and Reason for Visit Admit Diagnosis 1 E/O APRIL HIDRANENITIS BREAST & THIGH Problem list No authorized problems tracked [...] Finding Observation Time Hearing Prob Loc none 74-62-017134:45 Vision Problems yes 98-45-672888:45 Vision Correct Dev glasses 21-19-979999:45 Ambulation Asst Dev none 14-59-625076:45 Range of Motion full :30 Muscle Strength RUE 5 ROM full resist 33-78-309266:30 Muscle Strength RLE 5 ROM full resist :30 Muscle Strength LUE 5 ROM full resist :30 Muscle Strength LLE 5 ROM full resist 11-06-261971:30 Transfers independent : Ambulation up ad hernandez :30 Balance steady :30 Bathing Assistance none :45 Eating Assistance none :45 Dressing Assistance none :45 Toileting Assistance none :45 Transfer Assistance none :45 Decline Slf Care/Mob no :45 Phys Cond Stable yes :45 Nutrition normal :30 Diet regular : Oral Cavity moist and intact : Teeth dentures : Dental Hygiene good : Abdomen Appearance obese :30 Abdomen soft : Bowel Sounds present :30 NG Tube no : Feeding Tube none :30 Ramírez no :30 Cont Bladder Irr no :30 Ostomy no :30 Stool normal : Urination normal :30 Quality sym/unlabored : Cough absent :30 Secretions no : Breath Sounds RUL clear :30 Breath Sounds RML clear :30 Breath Sounds RLL clear :30 Breath Sounds SARA clear :30 Breath Sounds LLL clear :30 Airway natural :30 Chest Tube no :30 Oxygen no :45 C-PAP no :30 BI-PAP no :30 Temp >100.4 no : Temp <96.8 no :30 Chills with rigors no : HR > 90bpm no :30 Respirations > 20 no :30 Systolic <90 no :30 headache stiff neck no :30 Rapid Resp no :30 IV Site Location R hand :50 IV Type peripheral :50 IV Site Information discontinued :50 IV Site Start Attmpt 1 times :35 IV Site Isael 20 :42 IV Site Appearance WNL :42 IV Site Color clear :42 IV Site Patent yes :42 Dressing Type occlusive :42 Nursing Note States pain has improved to "7". Dismissed amb in good condition accompanied by grandmother and RN. 94-28-663541:05 Cognitive Status Finding Observation Time Learning Ability comprehends well :50 Neurological no :50 Psychological no :50 Physical no :50 Hearing no :50 Judge Clerk Needed no :50 Sign Language no :50 Emotional no :50 Vision yes :50 Laguage no :50 Financial no :50 Vital signs Type Value Date Respiration Rate 12 :05 Pulse 87 :05 Oxygen Saturation 90% :45 BP Systolic 118 54-84-891362:05 BP Diastolic 52 :05 Temperature 96.2F 51-70-125704:45 Height 63inches :17 Weight 220LB 30-91-052303:17 Social history No Social History or smoking status observations were recorded for this visit. ( Unknown if ever smoked.) Treatment Plan No treatment plan text is available for this visit. Hospital discharge instructions Discharge Date/Time 04/01/15 1300 Accompanied By Ebony Carrillo other (explain) Comment: grandmother Dismissal Condition good Disposition on DC home Valuables no DC Inst/Educ Give yes Exit Care Educ Given yes Med/Side Effects Rev yes PNE Vac never Flu Vac 04/2014 Tetanus Vac 06/2013 Diet Explained yes Follow up appt appt made (specify) Comment: To see Dr Dong on Apr 08, 2015 at 2:20 pm at [facility] Follow Up Appt D/T 04/08/15 2:20 pm
--- OUTSIDE RECORDS SUMMARY | 2020-01-18 15:32 | XMS REPORT ---
Author Author [facility] Medic al Staff, TOMY Rashid Organization [facility] Address [address] [place], [place] [address] Phone [phone] Care Team Providers Care Supervisor Frame Assembly Name Role Phone EDDIE SCOTT APRN PP [phone] Summary purpose TRANSITION OF CARE AUTO GENERATION [...] tests and/or laboratory data RESULTS Radiology Results [id number]:36:00 HAND XRAY - 3 VIEW PACs Image DATE OF EXAM: Apr 19 2015 RAD 0730-HAND XRAY-3 VIEW - RIGHT: RADIOLOGY REPORT DATE OF SERVICE: 04/19/15 HISTORY: Patient dropped piece of metal on hand. There is pain in the area of the fourth and fifth digits in m etacarpal bones. RIGHT HAND 3 VIEWS 0026 HOURS Patient was unable to remove a ring on t he ring finger and the thumb. No fractures are seen. Soft tissue swelling is present over dorsum of hand. There is no opaque foreign body evident. IMPRESSION: Negative study of the hand. The fourth proximal phalanx and the proximal phalanx of the thumb have s mall areas nonvisualized due to metal rings in place. Radha Galvan DO /pr 04/19/2015 08:04:04/08 08:56:48 cc:Eddie Scott APRN This document has been electronically Signed by: On: DATE OF EXAM: Apr 19 2015 RAD 0730-HAND XRAY-3 VIEW - RIGHT: RADIOLOGY REPORT DATE OF SERVICE: 04/19/15 HISTORY: Patient dropped piece of metal on hand. There is pain in the area of the fourth and fifth digits in m etacarpal bones. RIGHT HAND 3 VIEWS 0026 HOURS Patient was unable to remove a ring on t he ring finger and the thumb. No fractures are seen. Soft tissue swelling is present over dorsum of hand. There is no opaque foreign body evident. IMPRESSION: Negative study of the hand. The fourth proximal phalanx and the proximal phalanx of the thumb have s mall areas nonvisualized due to metal rings in place. Radha Galvan DO /pr 04/19/2015 08:04:04/08 08:56:48 cc:Eddie Scott APRN This document has been electronically Signed by: RADHA GALVAN DO On: Apr 19 20159:36A Result Amended on 2015-04-19 at 09:36:51 . Previous status was MD. History of procedures No procedures recorded for this patient visit. Functional status Functional Status Finding Observation Time Diet regular :57 Abdomen Appearance obese :57 Abdomen soft :57 Bowel Sounds present :57 Ramírez no :57 Urination normal :57 Quality sym/unlabored :57 Cough absent :57 Secretions no :57 Breath Sounds RUL clear :57 Breath Sounds RML clear :57 Breath Sounds RLL clear :57 Breath Sounds SARA clear :57 Breath Sounds LLL clear :57 Airway natural :57 Chest Tube no :57 Oxygen no :30 Temp >100.4 no :57 Temp <96.8 no :57 Chills with rigors no :57 HR > 90bpm no :57 Respirations > 20 no :57 Systolic <90 no :57 headache stiff neck no :57 Nursing Note dc inst discussed with pt. dcd to home i n good condition :30 Vital signs Type Value Date Respiration Rate 20breaths per minute : 30 Pulse 88beats per minute : Oxygen Saturation 97% :30 BP Systolic 136mmHg :30 BP Diastolic 85mmHg :30 Temperature 98.1F :30 Social history Type Value Smoking Status CURRENT EVERY DAY SMOKER Treatment Plan No treatment plan text is available for this visit. Hospital discharge instructions Dismissal Condition good Disposition on DC home DC Inst/Educ Give yes Med/Side Effects Rev yes Flu Vac 2013
--- OUTSIDE RECORDS SUMMARY | 2020-01-18 15:32 | XMS REPORT ---
Author Author [facility] Medic al Staff, TOMY Rashid Organization [facility] Address [address] [place], [place] [address] Phone [phone] Care Team Providers Care Roustabout Crew Name Role Phone EDDIE SCOTT APRN PP [phone] Summary purpose TRANSITION OF CARE AUTO GENERATION [...] tests and/or laboratory data RESULTS Radiology Results [id number]:00 HAND XRAY - 3 VIEW PACs Image [...] metal rings in place. Radha Galvan DO /sc 04/19/2015 08:04:04/08 08:56:48 cc:Eddie Scott APRN This [...] metal rings in place. Radha Galvan DO /sc 04/19/2015 08:04:04/08 08:56:48 cc:Eddie Scott APRN This document has been electronically Signed by: RADHA GALVAN DO On: Apr 19 20159:36A Result Amended on 2015-04-19 at 09:36:51 . Previous status was ND. History of procedures Procedure Code Code Type Description Date Performed Performing Physician 79065 CPT-4 EMERGENCY DEPT VISIT 04-18-2015 RADHA EATON 21707 CPT-4 EMERGENCY DEPT VISIT 04-18-2015 RADHA EATON 47979 CPT-4 X-RAY EXAM OF HAND 04-19-2015 RADHA RUVALCABA Functional status Functional Status Finding Observation Time [...]
--- OUTSIDE RECORDS SUMMARY | 2020-01-18 15:32 | XMS REPORT ---
Author Author [facility] Medic al Staff, TOMY Rashid Organization [facility] Address [address] [place], [place] [address] Phone [phone] Care Team Providers Care Dolly Operator Name Role Phone CHRISTOPHER YORK, CAROLEE PP [phone] CAROLEE WHITE MD PP [phone] Summary purpose TRANSITION OF CARE AUTO GENERATION [...] Code Type Description Date Performed Performing Physician 60361 CPT-4 EMERGENCY DEPT VISIT 08-02-2015 SILVANA MERAZ 29086 CPT-4 EMERGENCY DEPT VISIT 08-02-2015 SILVANA MERAZ Functional status Functional Status Finding Observation Time Diet regular 82-26-865526:10 Abdomen Appearance obese 53-44-917847:10 Abdomen soft 46-01-603342:10 Ramírez no 33-20-412773:10 Urination normal 29-72-712572:10 Quality sym/unlabored 83-48-438830:10 Cough absent 79-96-875697:10 Secretions no :10 Airway natural :10 Chest Tube no :10 Oxygen no :34 Temp >100.4 no :10 Temp <96.8 no : Chills with rigors no : HR > 90bpm no :10 Respirations > 20 no : Systolic <90 no : headache stiff neck no :10 Rapid Resp no :05 Nursing Note Discharge instructions given to pt with a verbal understanding. Script in hand to get filled tomorrow. Spous et sister assist pt to car to home in good condition. IV is discontinued with tip intact. :34 Vital signs Type Value Date Respiration Rate 18breaths per minute : 34 Pulse 80beats per minute :34 Oxygen Saturation 100% :34 BP Systolic 145mmHg :34 BP Diastolic 80mmHg :34 Temperature 97.4F :34 Social history Type Value Smoking Status CURRENT EVERY DAY SMOKER Treatment Plan No treatment plan text is available for this visit. Hospital discharge instructions Dismissal Condition good Disposition on DC home DC Inst/Educ Give yes Med/Side Effects Rev yes PNE Vac none Flu Vac 2014 Tetanus Vac 2012
--- OUTSIDE RECORDS SUMMARY | 2020-01-18 15:33 | XMS REPORT ---
Author Author [facility] Medic al Staff, TOMY Rashid Organization [facility] Address [address], [place] [address] Phone [phone] Care Team Providers Care Special Education Instructor Name Role Phone ROCHELLE YORK, LENARD PP [phone] Summary purpose TRANSITION OF CARE AUTO GENERATION [...] tests and/or laboratory data RESULTS Routine Cultures 95-83-772102:52:00 Wound Culture Plate Date and Time 09/13/2015 17:52 SourceTHIGH CULTURE REPORT Moderate Amount Staphylococcus Aureus. Sensitivity to follow Release Date/Time: 0 09/14/2015 07:03 GRAM STAIN Occasional Gram Positive Cocci Release Date/Time: 0 09/14/2015 07:43 ORGID #1: Moderate Amount METHICILLIN RESISTANT STAPH AUREUS Release Date/Time: 0 09/15/2015 09:30 Sensitivity #1: MRSA AMPICILLIN 8 R AMOX CLAV <=4/2 R CLINDAMYCIN > 4 R CEFAZOLIN <= 4R CIPROFLOXACIN > 2 R DAPTOMYCIN <= 0.5S ERYTHROMYCIN > 4 R GENTAMICIN <= 4S AMPICILLIN SULBACTAM <=8 /4 R LEVOFLOXACIN > 4 R LINEZOLID 2 S MOXIFLOXACIN > 4 R OXACILLIN > 2 R PENICILLIN > 8 R RIFAMPIN <= 1S TRIMETHSULFA 2/38S TETRACYCLINE > 8 R VANCOMYCIN 2 S History of procedures Procedure Code Code Type Description Date Performed Performing Physician 02877 CPT-4 SMEAR GRAM STAIN 09-13-2015 LENARD ELENA 99691 CPT-4 CULTR BACTERIA EXCEPT BLOOD 09-13-2015 LENARD NOYOLAHAM Functional status No functional or cognitive status [...]
--- OUTSIDE RECORDS SUMMARY | 2020-01-18 15:33 | XMS REPORT ---
Author Author [facility] Medic al Staff, TOMY Rashid Organization [facility] Address [address], [place] [address] Phone [phone] Care Team Providers Care Mail Carrier Name Role Phone SONIA ANDRADEN, EDDIE PP [phone] SONIA DISTRIBUTION DISTRICT SUPERVISOR, EDDIE PP [phone] Summary purpose TRANSITION OF CARE AUTO GENERATION Chief Complaint and Reason for Visit Admit Diagnosis 1 E/O BILATERAL THIGH HYDRODIN ITIS Problem list No authorized problems tracked for [...] Finding Observation Time Hearing Prob Loc none :48 Vision Problems yes :48 Vision Correct Dev glasses :48 Ambulation Asst Dev none :48 Range of Motion full :55 Muscle Strength RUE 5 ROM full resist 16-59-469935:55 Muscle Strength RLE 5 ROM full resist 18-62-495079:55 Muscle Strength LUE 5 ROM full resist 64-62-301094:55 Muscle Strength LLE 5 ROM full resist 79-25-026145:55 Transfers assist x 1 :55 Ambulation in room :55 Balance unsteady :55 Bathing Assistance none :48 Eating Assistance none : Dressing Assistance none :48 Toileting Assistance none : Transfer Assistance none :48 Decline Slf Care/Mob no :48 Phys Cond Stable yes :48 Nutrition normal :55 Diet regular :55 Oral Cavity moist and intact :55 Teeth dentures :55 Dental Hygiene good :55 [...] <90 no :55 headache stiff neck no :55 Rapid Resp no :55 IV Site Location left hand :35 IV [...] :40 Physical no :40 Hearing no :40 Squeegeer And Former Needed no :40 Sign Language no :40 [...] made (specify) Follow Up Appt D/T 03/04/15 3448
--- OUTSIDE RECORDS SUMMARY | 2020-01-18 15:33 | XMS REPORT ---
Author Author [facility] Medic al Staff, TOMY Rashid Organization [facility] Address [address] [place], [place] [address] Phone [phone] Care Team Providers Care Blankbook Stitching Machine Operator Name Role Phone CAROLEE WHITE MD PP [phone] CAROLEE WHITE MD PP [phone] Summary purpose TRANSITION OF CARE AUTO GENERATION [...] Finding Observation Time Hearing Prob Loc none 52-42-538671:39 Vision Problems yes 77-88-327561:39 Vision Correct Dev glasses 43-51-014984:39 Ambulation Asst Dev none 42-99-026176:39 Range of Motion full :35 Muscle Strength RUE 5 ROM full resist 74-96-419198:35 Muscle Strength RLE 5 ROM full resist 27-48-391419:35 Muscle Strength LUE 5 ROM full resist [...] Learning Ability comprehends well :20 Neurological no 25-71-357241:20 Psychological no 57-61-093990:20 Physical no 00-00-839718:20 Hearing no :20 Exceptional Children Teacher Needed no :20 Sign Language no :20 [...] Aug 19, 2015 at 2 pm at [facility] Follow Up Appt D/T 08-19-15 2 pm
--- OUTSIDE RECORDS SUMMARY | 2020-01-18 15:33 | XMS REPORT ---
Author Author [facility] Medic al StaffTOMY Organization [facility] Address [address], [place] [address] Phone [phone] Care Team Providers Care Revising Clerk Name Role Phone JULIAN GREENE APRN PP [phone] Summary purpose TRANSITION OF CARE AUTO GENERATION [...] no :45 headache stiff neck no :45 Rapid Resp no :35 Nursing Note dc inst discussed with pt. d cd to home with script in good condition :20 Vital signs Type Value Date Respiration Rate 18breaths per minute : 15 Pulse 107beats per minute :1 5 Oxygen Saturation 99% :15 BP Systolic 136mmHg :15 BP Diastolic 88mmHg :15 Temperature 98.0F :15 Weight 220LB :35 Social history No Social History or smoking [...]
--- OUTSIDE RECORDS SUMMARY | 2020-01-18 15:33 | XMS REPORT ---
Author Author [facility] Medic al Staff, TOMY Rasihd Organization [facility] Address [address] [place], [place] [address] Phone [phone] Summary purpose TRANSITION OF CARE AUTO GENERATION [...] Code Type Description Date Performed Performing Physician 94105 CPT-4 EMERGENCY DEPT VISIT 03-02-2015 [place] [address] CPT-4 EMERGENCY DEPT VISIT 03-02-2015 RADHA AN Functional status Functional Status Finding [...] <90 no : headache stiff neck no :05 Rapid Resp no :05 Nursing Note wound [...]
--- OUTSIDE RECORDS SUMMARY | 2020-01-18 15:33 | XMS REPORT ---
Author Author [facility] Medic al Staff, TOMY Rashid Organization [facility] Address [address], [place] [address] Phone [phone] Care Team Providers Care Granite Cutter Apprentice Name Role Phone CHRISTOPHER YORK, CAROLEE PP [phone] CAROLEE WHITE MD PP [phone] Summary purpose TRANSITION OF CARE AUTO GENERATION [...] Code Type Description Date Performed Performing Physician [id number] ICD10 Excision of Buttock Subcu/Fascia, Open Ap proach 07-19-2015 CATY GARZA 55265 CPT-4 REMOVAL, SWEAT GLAND LESION 07-19-2015 CATY GARZA 85078 CPT-4 SPECIAL SUPPLIES 07-19-2015 CATY DEL VALLE 14781 CPT-4 SPECIAL SUPPLIES 07-19-2015 CATY DEL VALLE 20253 CPT-4 SPECIAL SUPPLIES 07-19-2015 CATY DEL VALLE 33855 CPT-4 SPECIAL SUPPLIES 07-19-2015 CATY DEL VALLE C9290 CPT-4 INJ, BUPIVICAINE LIPOSOME 07-19-2015 CATY GARZA J0690 CPT-4 CEFAZOLIN SODIUM INJECTION 07-19-2015 CATY GARZA J2250 CPT-4 INJ MIDAZOLAM HYDROCHLORIDE 07-19-2015 CATY GREG J2270 CPT-4 MORPHINE SULFATE INJECTION 07-19-2015 CATY GARZA J2704 CPT-4 INJ, PROPOFOL, 10 MG 07-19-2015 CATY GARZA J7120 CPT-4 RINGERS LACTATE INFUSION 07-19-2015 S LG GARZA J7120 CPT-4 RINGERS LACTATE INFUSION 07-19-2015 S LG GARZA Functional status Functional Status Finding [...] assist x 1 :00 Ambulation in room :00 Balance unsteady :00 Bathing Assistance none :24 Eating Assistance none :24 Dressing Assistance none :24 Toileting Assistance none :24 Transfer Assistance none :24 Decline Slf Care/Mob no :24 Phys Cond Stable yes :24 Nutrition normal :00 Diet regular :00 Oral Cavity moist and intact :00 Teeth none :00 Dental Hygiene good : Abdomen Appearance obese :00 Abdomen soft :00 Bowel Sounds present :00 NG Tube no :00 Feeding Tube none :00 Ramírez no :00 Cont Bladder Irr no :00 Ostomy no : Stool normal : Urination normal : Quality sym/unlabored : Cough absent : Secretions no : Breath Sounds RUL clear : Breath Sounds RML clear : Breath Sounds RLL clear : Breath Sounds SARA clear : Breath Sounds LLL clear : Airway natural : Chest Tube no : Oxygen no :30 C-PAP no : BI-PAP no : Temp >100.4 no : Temp <96.8 no : Chills with rigors no : HR > 90bpm no : Respirations > 20 no : Systolic <90 no : headache stiff neck no : Rapid Resp no : IV Site Location L ac :25 IV Type peripheral :25 IV Site Information discontinued :25 IV Site Start Attmpt 2 times :25 IV Site Isael 20 :25 IV Site Appearance WNL :25 IV Site Color clear : IV Site Patent yes :25 Dressing Type occlusive :25 Nursing Note pt dismissed from the unit a t this. pt's grandfather to drive her home. personal belongings and discharge paperwork in hand. no questions about home instructions. pt in stable condition to go home. :40 Cognitive Status Finding Observation Time Learning Ability comprehends well : Neurological no :25 Psychological no :25 Physical no :25 Hearing no :25 Foundation Drill Operator Needed no : Sign Language no : Emotional no : Vision no : Laguage no :25 Financial no :25 Vital signs Type Value Date Respiration Rate 18breaths per minute : Pulse 76beats per minute : Oxygen Saturation 98% : BP Systolic 130mmHg : BP Diastolic 72mmHg :30 Temperature 97.7F :00 Height 63inches :33 Weight 233.5LB :33 Social history No Social History or smoking status observations were recorded for this visit. ( Unknown if ever smoked.) Treatment Plan No treatment plan text is available for this visit. Hospital discharge instructions Discharge Date/Time 07/19/15 1440 Relationship other (explain) Comment: grandpa Dismissal Condition good Disposition on DC home Valuables yes Valuable Type billfold/purse Valuables Returned T patient DC Inst/Educ Give yes Exit Care Educ Given yes Med/Side Effects Rev yes PNE Vac never Flu Vac 04/2015 Tetanus Vac 06/2013 Diet Explained yes Follow up appt already scheduled Follow Up Appt D/T 07/27/15 1430
--- OUTSIDE RECORDS SUMMARY | 2020-01-18 15:33 | XMS REPORT ---
Author Author [facility] Medic al Staff, TOMY Rashid Organization [facility] Address [address], [place] [address] Phone [phone] Care Team Providers Care Data Analytics Analyst Name Role Phone CHRISTOPHER YORK, CAROLEE PP [phone] CAROLEE WHITE MD PP [phone] Summary purpose TRANSITION OF CARE AUTO GENERATION [...] Time Diet regular :10 Abdomen Appearance obese :10 Abdomen soft :10 Ramírez no :10 Urination normal :10 Quality sym/unlabored :10 Cough absent :10 Secretions no :10 Airway natural :10 Chest Tube no :10 Oxygen no :34 Temp >100.4 no :10 Temp <96.8 no :10 Chills with rigors no : HR > 90bpm no :10 Respirations > 20 no :10 Systolic <90 no : headache stiff neck [...]
--- OUTSIDE RECORDS SUMMARY | 2020-01-18 15:33 | XMS REPORT ---
Author Author [facility] Medic al Staff, TOMY Rashid Organization [facility] Address [address] [place], [place] [address] Phone [phone] Care Team Providers Care Straightening Machine Operator Name Role Phone EDDIE SCOTT APRN PP [phone] Summary purpose TRANSITION OF CARE AUTO GENERATION [...] Breath Sounds LLL clear :15 Airway natural : Chest Tube no :15 Oxygen no : Temp >100.4 no : Temp <96.8 no : Chills with rigors no : HR > 90bpm no : Respirations > 20 no : Systolic <90 no : headache stiff neck no :15 Nursing Note dc inst discussed with pt. dcd to home i n good condition :33 Vital signs Type Value Date Respiration Rate 18breaths per minute : Pulse 108beats per minute :3 0 Oxygen Saturation 99% : BP Systolic 144mmHg : BP Diastolic 90mmHg :30 Temperature 98.1F :30 Social history Type Value Smoking Status CURRENT EVERY DAY SMOKER Treatment Plan No treatment plan text is available for this visit. Hospital discharge instructions Dismissal Condition good Disposition on DC home DC Inst/Educ Give yes Med/Side Effects Rev yes PNE Vac none Flu Vac 2014 Tetanus Vac current
--- OUTSIDE RECORDS SUMMARY | 2020-01-18 15:33 | XMS REPORT ---
Author Author [facility] Medic al Staff, TOMY Rashid Organization [facility] Address [address] [place], [place] [address] Phone [phone] Care Team Providers Care Education Assistant Name Role Phone SILVANA MENON MD PP [phone] Summary purpose TRANSITION OF CARE AUTO GENERATION [...] Code Type Description Date Performed Performing Physician 94765 CPT-4 EMERGENCY DEPT VISIT 02-04-2016 MALLY MONSIVAIS 16029 CPT-4 EMERGENCY DEPT VISIT 02-04-2016 MALLY MONSIVAIS Functional status Functional Status Finding Observation Time Muscle Strength RUE 5 ROM full resist 33-63-014411:25 Muscle Strength RLE 5 ROM full resist :25 Muscle Strength LUE 5 ROM full resist 89-71-430081:25 Muscle Strength LLE 5 ROM full resist 59-95-296543:25 Abdomen Appearance round :25 Ramírez no 02-54-981098:25 Urination normal :25 Quality sym/unlabored : Cough absent : Secretions no : Airway natural : Chest Tube no : Oxygen no :55 Temp >100.4 no : Temp <96.8 no : Chills with rigors no : HR > 90bpm no : Respirations > 20 no : Systolic <90 no : headache stiff neck no : Nursing Note Reviewed home instructions w ith [...]
--- OUTSIDE RECORDS SUMMARY | 2020-01-18 15:33 | XMS REPORT ---
Author Author [facility] Medic al Staff, TOMY Rashid Organization [facility] Address [address] [place], [place] [address] Phone [phone] Summary purpose TRANSITION OF CARE AUTO GENERATION [...] Code Type Description Date Performed Performing Physician 72911 CPT-4 THER/PROPH/DIAG IV INF, INIT 09-25-2015 LENARD BYRD 49235 CPT-4 THER/PROPH/DIAG IV INF, INIT 09-25-2015 LENARD BYRD 00314 CPT-4 THER/PROPH/DIAG IV INF, INIT 09-26-2015 LENARD BYRD 07069 CPT-4 THER/PROPH/DIAG IV INF, INIT 09-26-2015 LENARD BYRD 64165 CPT-4 THER/PROPH/DIAG IV INF ADDON 09-25-2015 LENADR BYRD 98487 CPT-4 THER/PROPH/DIAG IV INF ADDON 09-25-2015 LENARD BYRD 02702 CPT-4 THER/PROPH/DIAG IV INF ADDON 09-26-2015 LENARD BYRD 82791 CPT-4 THER/PROPH/DIAG IV INF ADDON 09-26-2015 LENARD BYRD 99435 CPT-4 TX/PRO/DX INJ NEW DRUG ADDON 09-25-2015 LENARD BYRD 37264 CPT-4 TX/PRO/DX INJ NEW DRUG ADDON 09-25-2015 LENARD BYRD 66225 CPT-4 TX/PRO/DX INJ NEW DRUG ADDON 09-26-2015 LENARD BYRD 79201 CPT-4 TX/PRO/DX INJ NEW DRUG ADDON 09-26-2015 [...] Finding Observation Time Hearing Prob Loc none 14-62-051337:21 Vision Problems yes 22-10-121051:21 Vision Correct Dev glasses 12-01-837665:21 Ambulation Asst Dev none 08-33-037345:21 Bathing Assistance none 58-62-753601:21 Eating Assistance none 52-06-527962:21 Dressing Assistance none 30-64-455661:21 Toileting Assistance none 81-34-674603:21 Transfer Assistance none : Decline Slf Care/Mob [...] :39 Physical no :39 Hearing no :39 Qa Developer Needed no :39 Sign Language no :39 [...]
--- OUTSIDE RECORDS SUMMARY | 2020-01-18 15:33 | XMS REPORT ---
Author Author [facility] Medic al Staff, TOMY Rashid Organization [facility] Address [address], [place] [address] Phone [phone] Care Team Providers Care Site Safety Coordinator Name Role Phone CHRISTOPHER YORK, CAROLEE PP [phone] CAROLEE WHITE MD, PP [phone] Summary purpose TRANSITION OF CARE AUTO GENERATION [...] Code Type Description Date Performed Performing Physician 94980 CPT-4 ELECTRIC STIMULATION THERAPY 2014 CAROLEE WHITE 84904 CPT-4 MECHANICAL TRACTION THERAPY 2014 CAROLEE WHITE 29573 CPT-4 ELECTRIC STIMULATION THERAPY 09-14-2014 CAROLEE WHITE 06675 CPT-4 MECHANICAL TRACTION THERAPY 09-14-2014 CAROLEE WHITE [...]
--- OUTSIDE RECORDS SUMMARY | 2020-01-18 15:33 | XMS REPORT ---
Author Author [facility] Medic al Staff, TOMY Rashid Organization [facility] Address [address], [place] [address] Phone [phone] Care Team Providers Care Instrument Mechanics Supervisor Name Role Phone CAROLEE WHITE MD PP [phone] Summary purpose TRANSITION OF CARE AUTO GENERATION [...] Abdomen Appearance obese :20 Abdomen soft :20 Bowel Sounds present :20 Ramírez no :20 Urination normal :20 Quality sym/unlabored :20 Cough absent :20 Secretions no :20 Breath Sounds RUL clear :20 Breath Sounds RML clear :20 Breath Sounds RLL clear :20 Breath Sounds SARA clear :20 Breath Sounds LLL clear :20 Airway natural [...] minute : 55 Pulse 80beats per minute :55 Oxygen Saturation 98% :55 BP Systolic 140mmHg [...]
--- OUTSIDE RECORDS SUMMARY | 2020-01-18 15:33 | XMS REPORT ---
Author Author [facility] Medic al Staff, TOMY Rashid Organization [facility] Address [address] [place], [place] [address] Phone [phone] Care Team Providers Care Tool Keeper Name Role Phone ROCHELLE YORK, LENARD PP [phone] LENARD BYRD MD, PP [phone] Summary purpose TRANSITION OF CARE AUTO GENERATION [...] Finding Observation Time Hearing Prob Loc none 04-03-746369:17 Vision Problems yes 47-61-510974:17 Vision Correct Dev glasses 58-83-875611:17 Ambulation Asst Dev none 03-50-155990:17 Range of Motion full :55 Muscle Strength RUE 5 ROM full resist 28-99-276271:55 Muscle Strength RLE 5 ROM full resist :55 Muscle Strength LUE 5 ROM full resist :55 Muscle Strength LLE 5 ROM full resist :55 Transfers assist x 1 :55 Ambulation in room :55 Balance unsteady :55 Bathing Assistance none :17 Eating Assistance none :17 Dressing Assistance none :17 Toileting Assistance none : Transfer Assistance none :17 Decline Slf Care/Mob [...] :55 Chest Tube no :55 Oxygen no :25 C-PAP no :55 BI-PAP no :55 Temp >100.4 no 39-71-456051:55 Temp <96.8 no :55 Chills with rigors no : HR > 90bpm no :55 Respirations > 20 no : Systolic <90 no : headache stiff neck no :55 IV Site Location L ac 17-65-156736:25 IV Type peripheral 52-81-586613:25 IV Site Information discontinued : IV Site Start Attmpt 1 times 24-82-914854:40 IV Site Isael 20 26-63-110052:25 IV Site Appearance WNL 62-95-667189:25 IV Site Color clear : IV Site Patent yes : Dressing Type occlusive :25 Nursing Note pt dismissed from the unit a t this time. pt in stable condition to go home. personal belongings in hand. grandmother to drive pt home. :30 Cognitive Status Finding Observation Time Learning Ability comprehends well :25 Neurological no 42-45-495101:25 Psychological no 89-55-959163:25 Physical no 22-72-695588:25 Hearing no :25 Executive Receptionist Needed no : Sign Language no :25 Emotional no : Vision yes : Laguage no :25 Financial no :25 Vital signs Type Value Date Respiration Rate 16breaths per minute : Pulse 80beats per minute :25 Oxygen Saturation 97% :25 BP Systolic 152mmHg 05-42-284625:25 BP Diastolic 92mmHg :25 Temperature 97.0F :55 Height 64inches :57 Weight 240LB 01-67-690174:57 Social history Type Value Smoking Status NEVER [...] already scheduled Follow Up Appt D/T 11/09/15 3340
--- OUTSIDE RECORDS SUMMARY | 2020-01-18 15:33 | XMS REPORT ---
Author Author [facility] Medic al Staff, TOMY Rashid Organization [facility] Address [address], [place] [address] Phone [phone] Care Team Providers Care Shipwright Apprentice Name Role Phone CHRISTOPHER YORK, CAROLEE PP [phone] Summary purpose TRANSITION OF CARE AUTO GENERATION [...] Functional Status Finding Observation Time Diet regular :26 Abdomen Appearance obese :26 Abdomen soft :26 Ramírez no :26 Urination normal :26 Quality sym/unlabored :26 Cough absent :26 Secretions no :26 Airway natural :26 Chest Tube no :26 Oxygen no :50 Temp >100.4 no :26 Temp <96.8 no :26 Chills with rigors no :26 HR > 90bpm no : Respirations > 20 no :26 Systolic <90 no :26 headache stiff neck no :26 Nursing Note Discharge instructions given , along with script to fill for PO Dilaudid. Pt states of pain "better" at 11/15. Pt ambulated out with spouse in good condition to home. :50 Vital signs Type Value Date Respiration Rate 20breaths per minute : 50 Pulse 101beats per minute :5 0 Oxygen Saturation 96% :50 BP Systolic 153mmHg :50 BP Diastolic 97mmHg :50 Temperature 98F 25-58-742714:50 Social history Type Value Smoking Status CURRENT EVERY DAY SMOKER Treatment Plan No treatment plan text is available for this visit. Hospital discharge instructions Dismissal Condition good Disposition on DC home DC Inst/Educ Give yes Med/Side Effects Rev yes PNE Vac none Flu Vac 2014 Tetanus Vac 2012
--- OUTSIDE RECORDS SUMMARY | 2020-01-18 15:33 | XMS REPORT ---
Author Author [facility] Medic al Staff, TOMY Rashid Organization [facility] Address [address] [place], [place] [address] Phone [phone] Care Team Providers Care Dietetic Technician Registered Name Role Phone SILVANA MENON MD PP [phone] Summary purpose TRANSITION OF CARE AUTO GENERATION [...]
--- OUTSIDE RECORDS SUMMARY | 2020-01-18 15:33 | XMS REPORT ---
Author Author [facility] Medic al Staff, TOMY Rashid Organization [facility] Address [address], [place] [address] Phone [phone] Care Team Providers Care Microchip Specialist Name Role Phone CAROLEE WHITE MD PP [phone] Summary purpose TRANSITION OF CARE AUTO GENERATION [...] Isael 20 :27 IV Site Appearance WNL : IV Site Color clear : IV Site Patent yes :27 Dressing Changed yes : Dressing Type gauze :20 Nursing Note Pt escorted off unit per w/c . all belongings sent with pt. SL has been dc'd. discharge instructions reviewed, discussed need to f/u with Dr. simmons on 05/11/15 at 2:50. Home medications revie wed, written rx handed to pt. Discussed narcotic precautions and s/sx of infection to monitor. pt verbalized understanding of all instructions. written education handed to pt Comment: This result is a modification to a previously-entered result. It was modified on 04/30/15 at 15:37 by ERMA. :20 Cognitive Status Finding Observation Time Oriented To Date 5 Yes : Oriented To Place 5 Yes :00 Name 3 Objects 3 Yes : Name Object in Rm 2 Yes :00 Recall 3 Objects 3 Yes : Repeats a Phrase 1 Yes : Follows Verbal Direc 3 Yes : Follows Written Dire 1 Yes : Write a Sentance 1 Yes : Draw an Object 1 Yes : Mini Mental Total 25 points : Less than 20 Phys not applicable : Learning Ability comprehends well : Neurological no : Psychological no : Physical no : Hearing no : First Aid Nurse Needed no : Sign Language no : Emotional no : Vision yes : Laguage no :28 Financial no :28 Vital [...]
--- OUTSIDE RECORDS SUMMARY | 2020-01-18 15:33 | XMS REPORT ---
Author Author [facility] Medic al Staff, TOMY Rashid Organization [facility] Address [address] [place], [place] [address] Phone [phone] Care Team Providers Care Queen Producer Name Role Phone CHRISTOPHER YORK, CAROLEE PP [phone] CAROLEE WHITE MD PP [phone] Summary purpose TRANSITION OF CARE AUTO GENERATION [...] LLE 5 ROM full resist : Transfers independent : Ambulation up ad hernandez :29 Balance steady : Bathing Assistance none :15 Eating Assistance none :15 Dressing Assistance none :15 Toileting Assistance none : Transfer Assistance none :15 Decline Slf Care/Mob no :15 Phys Cond Stable yes :15 Nutrition normal :29 Diet regular : Oral Cavity moist and intact : Teeth none : Dental Hygiene good :29 Abdomen Appearance obese : Abdomen soft :29 Bowel Sounds present : NG Tube no : Feeding Tube none : Ramírez no :29 Cont Bladder Irr no :29 Ostomy no : Stool normal : Urination normal :29 Quality sym/unlabored : Cough absent : Secretions no : Breath Sounds RUL clear : Breath Sounds RML clear :29 Breath Sounds RLL clear :29 Breath Sounds SARA clear :29 Breath Sounds LLL clear :29 Airway natural : Chest Tube no :29 Oxygen no :00 C-PAP no :29 BI-PAP no :29 Temp >100.4 no : Temp <96.8 no :29 Chills with rigors no : HR > 90bpm no :29 Respirations > 20 no :29 Systolic <90 no :29 headache stiff neck no :29 IV Site Location R hand :30 IV Type peripheral :30 IV Site Information discontinued : IV Site Start Attmpt 2 times : IV Site Isael 20 :30 IV Site Appearance WNL : IV Site Color clear : IV Site Patent yes : Dressing Type occlusive :30 Nursing Note Pt to west entrance per w/c to wait for ride. Pt in fair condition with all belongings intact. :35 Cognitive Status Finding Observation Time Learning Ability comprehends well :39 Neurological no :39 Psychological no :39 Physical no :39 Hearing no :39 Mandrel Puller Needed no :39 Sign Language no :39 Emotional no :39 Vision no :39 Laguage no :39 Financial no :39 Vital signs Type Value Date Respiration Rate 18breaths per minute : 00 Pulse 70beats per minute :00 Oxygen Saturation 98% :00 BP Systolic 132mmHg :00 BP Diastolic 79mmHg :00 Temperature 98.2F :21 Height 63inches :20 Weight 233.5LB 33-84-371371:20 Social history No Social History or smoking status observations were recorded for this visit. ( Unknown if ever smoked.) Treatment Plan No treatment plan text is available for this visit. Hospital discharge instructions Discharge Date/Time 09/07/15 Accompanied By Ebony de la rosa (explain) Comment: grandma Dismissal Condition good Disposition on DC home Valuables no Valuable Type jewelry (describe) Comment: multiple earrings DC Inst/Educ Give yes Exit Care Educ Given yes Med/Side Effects Rev yes PNE Vac never Flu Vac 04/2015 Tetanus Vac 06/2013 Diet Explained yes Follow up appt already scheduled Follow Up Appt D/T 09/21/15 2;00pm
--- OUTSIDE RECORDS SUMMARY | 2020-01-18 15:33 | XMS REPORT ---
Author Author [facility] Medic al Staff, TOMY Rashid Organization [facility] Address [address] [place], [place] [address] Phone [phone] Care Team Providers Care Licensing Analyst Name Role Phone JC ANDRADEN, JULIAN PP [phone] JC AUTO TRANSMISSION MECHANIC, JULIAN PP [phone] Summary purpose TRANSITION OF CARE AUTO GENERATION [...] Code Type Description Date Performed Performing Physician [id number] ICD10 Excision of Pelvic Subcu/Fascia, Open Jese palma 06-02-2015 CATY GARZA [id number] ICD10 Extraction of Buttock Skin, External Appr oach 06-02-2015 CATY GARZA 75449 CPT-4 REMOVAL SWEAT GLAND LESION 06-02-2015 CATY GARZA 41689 CPT-4 RMVL DEVITAL TIS 20 CM/< 06-02-2015 Margo GARZA J7120 CPT-4 RINGERS LACTATE INFUSION 06-02-2015 Margo GARZA J2250 CPT-4 INJ MIDAZOLAM HYDROCHLORIDE 06-02-2015 CATY GARZA J2704 CPT-4 INJ, PROPOFOL, 10 MG 06-02-2015 ACTY GARZA J2250 CPT-4 INJ MIDAZOLAM HYDROCHLORIDE 06-02-2015 CATY GARZA J1170 CPT-4 HYDROMORPHONE INJECTION 06-02-2015 NELLIE GARZA 51441 CPT-4 SPECIAL SUPPLIES PHYS/QHP 06-02-2015 CATY GARZA 89542 CPT-4 SPECIAL SUPPLIES PHYS/QHP 06-02-2015 CATY GARZA 11440 CPT-4 SPECIAL SUPPLIES PHYS/QHP 06-02-2015 CATY GARZA 53681 CPT-4 SPECIAL SUPPLIES PHYS/QHP 06-02-2015 CATY GARZA 99855 CPT-4 SPECIAL SUPPLIES PHYS/QHP 06-02-2015 CATY GARZA 44582 CPT-4 SPECIAL SUPPLIES PHYS/QHP 06-02-2015 CATY GARZA Functional status Functional Status Finding Observation Time Hearing Prob Loc none 79-73-181149:57 Vision Problems yes :57 Vision Correct Dev glasses 54-09-788517:57 Ambulation Asst Dev none :57 Range of Motion full :20 Muscle Strength RUE 5 ROM full resist :20 Muscle Strength RLE 5 ROM full resist :20 Muscle Strength LUE 5 ROM full resist :20 Muscle Strength LLE 5 ROM full resist :20 Transfers assist x 1 :20 Ambulation in room :20 Balance steady :20 Bathing Assistance none 91-92-895311:57 Eating Assistance none 35-19-163688:57 Dressing Assistance none 41-23-155280:57 Toileting Assistance none :57 Transfer Assistance none :57 Decline Slf Care/Mob no 44-97-129520:57 Phys Cond Stable yes :57 Nutrition normal :20 Diet regular 39-32-108057:20 Oral Cavity moist and intact :20 Teeth dentures :20 Dental Hygiene good :20 Abdomen Appearance obese :20 Abdomen soft : Bowel Sounds present :20 NG Tube no :20 Feeding Tube none :20 Ramírez no :20 Cont Bladder Irr no :20 Ostomy no :20 Stool normal : Urination normal : Urine Clarity clear : Urine Color straw :20 Quality sym/unlabored : Cough absent : Secretions no : Breath Sounds RUL clear : Breath Sounds RML clear : Breath Sounds RLL clear : Breath Sounds SARA clear : Breath Sounds LLL clear : Airway natural : Chest Tube no :20 Oxygen no :10 C-PAP no :20 BI-PAP no :20 Temp >100.4 no :20 Temp <96.8 no :20 Chills with rigors no : HR > 90bpm no :20 Respirations > 20 no :20 Systolic <90 no :20 headache stiff neck no :20 Rapid Resp no :20 IV Site Location Left wrist :07 IV Type peripheral :07 IV Site Information discontinued Comment: cath tip intact :07 IV Site Start Attmpt 5 times :16 IV Site Isael 20 81-69-337250:07 IV Site Appearance WNL :07 IV Site Color clear :07 IV Site Patent yes :07 Dressing Changed yes :07 Dressing Type gauze :07 Nursing Note Pt states she "had to come t o the hospital to get one stiched back up". She states "my skin is tearing through". Pt states she's doing well now. 63-02-737673:04 Cognitive Status Finding Observation Time Learning Ability comprehends well : Neurological no :15 Psychological no :15 Physical no 12-94-329059:15 Hearing no :15 High Energy Forming Equipment Operator Needed no :15 Sign Language no :15 Emotional no :15 Vision no :15 Laguage no :15 Financial no :15 Vital signs Type Value Date Respiration Rate 18breaths per minute : 10 Pulse 90beats per minute : Oxygen Saturation 97% :10 BP Systolic 145mmHg :10 BP Diastolic 87mmHg :10 Temperature 98.3F 28-66-942252:17 Height 63inches 74-78-292750:00 Weight 233.5LB 21-71-580850:00 Social history Type Value Smoking Status CURRENT HEAVY TOBACCO SMOKER Treatment Plan No treatment plan text is available for this visit. Hospital discharge instructions Discharge Date/Time 06-02-2015 14:15 Accompanied By Lisa Carrillo other (explain) Comment: Aunt Dismissal Condition good Disposition on DC home Valuables yes Valuable Type billfold/purse Valuables Returned T patient DC Inst/Educ Give yes Exit Care Educ Given yes Med/Side Effects Rev yes PNE Vac never Flu Vac 04/2014 Tetanus Vac 06/2013 Diet Explained yes Follow up appt already scheduled Follow Up Appt D/T 06/09 1:50
--- OUTSIDE RECORDS SUMMARY | 2020-01-18 15:33 | XMS REPORT ---
Author Author [facility] Medic al Staff, TOMY Rashid Organization [facility] Address [address], [place] [address] Phone [phone] Care Team Providers Care Hardware Engineer Name Role Phone SILVANA MENON MD PP [phone] Summary purpose TRANSITION OF CARE AUTO GENERATION [...] tests and/or laboratory data RESULTS Radiology Results [id number]:25:00 KNEE XRAY - 3 VIEW PACs Image [...] joint effusion. IMPRESSION: Normal knee. MD GEOVANNA Carrasco/il12/22/2015 08:12:00 / 12/07 08:47:53 cc:SILVANA MENON This [...] effusion. IMPRESSION: Normal knee. Justin Carpenter MD [facility]/il12/22/2015 08:12:00 / 12/07 08:47:53 cc:SILVANA MENON This document has been electronically Signed by: JUSTIN CARPENTER MD On: Dec 22 2015 11:25A Result Amended on 2015-12-22 at 11:25:23 . Previous status was NC. History of procedures Procedure Code Code Type Description Date Performed Performing Physician 91905 CPT-4 X-RAY EXAM OF KNEE, 3 12-22-2015 SANTIAGO SALAS J3010 CPT-4 FENTANYL CITRATE INJECITON 12-22-2015 PAM JOSUE 39112 CPT-4 EMERGENCY DEPT VISIT 12-21-2015 REBEC CA JOSUE 94446 CPT-4 EMERGENCY DEPT VISIT 12-21-2015 REBEC CA JOSUE 78995 CPT-4 THER/PROPH/DIAG INJ, IV PUSH 12-21-2015 PAM SALAS Functional status Functional Status Finding Observation Time Muscle Strength RLE 5 ROM full resist :05 Abdomen Appearance obese :05 Abdomen soft :05 Ramírez no :05 Urination normal :05 Quality sym/unlabored :05 Cough absent :05 Secretions no :05 Airway natural :05 Chest Tube no :05 Oxygen no 75-40-555370:55 Temp >100.4 no :05 Temp <96.8 no [...] Respiration Rate 18breaths per minute : Pulse 70beats per minute :55 Oxygen Saturation 98% :55 BP Systolic 143mmHg :55 BP Diastolic 96mmHg :55 Temperature 98.2F :55 Social history Type Value Smoking Status CURRENT EVERY DAY SMOKER Treatment Plan No treatment plan text is available for this visit. 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
--- OUTSIDE RECORDS SUMMARY | 2020-01-18 15:33 | XMS REPORT ---
Author Author [facility] Medic al Staff, TOMY Rashid Organization [facility] Address [address], [place] [address] Phone [phone] Care Team Providers Care Lead Athlete Name Role Phone CAROLEE WHITE MD PP [phone] Summary purpose TRANSITION OF CARE AUTO GENERATION [...] Code Type Description Date Performed Performing Physician 80787 CPT-4 EMERGENCY DEPT VISIT 05-17-2015 JULIO NAQVI 82800 CPT-4 EMERGENCY DEPT VISIT 05-17-2015 JULIO NAQVI Functional status Functional Status Finding Observation Time [...] 98.4F :42 Height 63inches :50 Weight 225LB 35-11-913959:50 Social history Type Value Smoking Status CURRENT EVERY DAY SMOKER Treatment Plan No treatment plan text is available for this visit. Hospital discharge instructions Dismissal Condition good Disposition on DC home DC Inst/Educ Give yes Med/Side Effects Rev yes Flu Vac 2014
--- OUTSIDE RECORDS SUMMARY | 2020-01-18 15:33 | XMS REPORT ---
Author Author [facility] Medic al Staff, TOMY Rashid Organization [facility] Address [address], [place] [address] Phone [phone] Care Team Providers Care Blanket Maker Name Role Phone LYNSEY YORK, SILVANA PP [phone] Summary purpose TRANSITION OF CARE AUTO GENERATION [...] and/or laboratory data RESULTS Therapeutic Drug Monitoring 64-49-328895:19:00 Result Normal Range Units Vancomycin Trough L 8.3 10-22 ug /ml 75-94-731593:10:00 Result Normal Range Units Vancomycin Trough L 5.2 10-22 ug /ml 49-17-774315:47:00 Result Normal Range Units Vancomycin Trough L 5.3 10-22 ug /ml History of procedures Procedure Code Code Type Description Date Performed Performing Physician 85541 CPT-4 ROUTINE VENIPUNCTURE 12-16-2015 ЮЛИЯ CHENG 54578 CPT-4 ROUTINE VENIPUNCTURE 12-17-2015 ЮЛИЯ CHENG 01113 CPT-4 ROUTINE VENIPUNCTURE 12-20-2015 ЮЛИЯ CHENG 43080 CPT-4 ASSAY OF VANCOMYCIN 12-16-2015 ЮЛИЯ CHENG 23474 CPT-4 ASSAY OF VANCOMYCIN 12-17-2015 ЮЛИЯ CHENG 47223 CPT-4 ASSAY OF VANCOMYCIN 12-20-2015 ЮЛИЯ CHENG 87124 CPT-4 THER/PROPH/DIAG IV INF, INIT 12-16-2015 ЮЛИЯ CHENG 39141 CPT-4 THER/PROPH/DIAG IV INF, INIT 12-16-2015 ЮЛИЯ CHENG 20654 CPT-4 THER/PROPH/DIAG IV INF, INIT 12-17-2015 ЮЛИЯ CHENG 67750 CPT-4 THER/PROPH/DIAG IV INF, INIT 12-17-2015 ЮЛИЯ CHENG 28854 CPT-4 THER/PROPH/DIAG IV INF, INIT 12-18-2015 ЮЛИЯ CHENG 12939 CPT-4 THER/PROPH/DIAG IV INF, INIT 12-18-2015 ЮЛИЯ CHENG 60070 CPT-4 THER/PROPH/DIAG IV INF, INIT 12-19-2015 ЮЛИЯ CHENG 66829 CPT-4 THER/PROPH/DIAG IV INF, INIT 12-19-2015 ЮЛИЯ CHENG 09390 CPT-4 THER/PROPH/DIAG IV INF ADDON 12-16-2015 ЮЛИЯ CHENG 09656 CPT-4 THER/PROPH/DIAG IV INF ADDON 12-16-2015 ЮЛИЯ CHENG 93250 CPT-4 THER/PROPH/DIAG IV INF ADDON 12-17-2015 ЮЛИЯ CHENG 52344 CPT-4 THER/PROPH/DIAG IV INF ADDON 12-17-2015 ЮЛИЯ CHENG 27055 CPT-4 THER/PROPH/DIAG IV INF ADDON 12-18-2015 ЮЛИЯ CHENG 73782 CPT-4 THER/PROPH/DIAG IV INF ADDON 12-18-2015 ЮЛИЯ CHENG 06361 CPT-4 THER/PROPH/DIAG IV INF ADDON 12-19-2015 ЮЛИЯ CHENG 75235 CPT-4 THER/PROPH/DIAG IV INF ADDON 12-19-2015 ЮЛИЯ CHENG 97070 CPT-4 TX/PRO/DX INJ NEW DRUG ADDON 12-16-2015 ЮЛИЯ CHENG 75564 CPT-4 TX/PRO/DX INJ NEW DRUG ADDON 12-16-2015 ЮЛИЯ CHENG 00872 CPT-4 TX/PRO/DX INJ NEW DRUG ADDON 12-17-2015 ЮЛИЯ CHENG 77302 CPT-4 TX/PRO/DX INJ NEW DRUG ADDON 12-17-2015 ЮЛИЯ CHENG 41272 CPT-4 TX/PRO/DX INJ NEW DRUG ADDON 12-18-2015 ЮЛИЯ CHENG 72620 CPT-4 TX/PRO/DX INJ NEW DRUG ADDON 12-18-2015 ЮЛИЯ CHENG 18299 CPT-4 TX/PRO/DX INJ NEW DRUG ADDON 12-19-2015 ЮЛИЯ CHENG 93818 CPT-4 TX/PRO/DX INJ NEW DRUG ADDON 12-19-2015 ЮЛИЯ CHENG J1200 CPT-4 DIPHENHYDRAMINE HCL INJECTIO 12-16-2015 ЮЛИЯ CHENG J1200 CPT-4 DIPHENHYDRAMINE HCL INJECTIO 12-17-2015 ЮЛИЯ CHENG J1200 CPT-4 DIPHENHYDRAMINE HCL INJECTIO 12-17-2015 ЮЛИЯ CHENG J1200 CPT-4 DIPHENHYDRAMINE HCL INJECTIO 12-18-2015 ЮЛИЯ CHENG J1200 CPT-4 DIPHENHYDRAMINE HCL INJECTIO 12-18-2015 ЮЛИЯ CHENG J1200 CPT-4 DIPHENHYDRAMINE HCL INJECTIO 12-19-2015 ЮЛИЯ CHENG J1200 CPT-4 DIPHENHYDRAMINE HCL INJECTIO 12-19-2015 ЮЛИЯ CHENG J1200 CPT-4 DIPHENHYDRAMINE HCL INJECTIO 12-20-2015 ЮЛИЯ CHENG J1200 CPT-4 DIPHENHYDRAMINE HCL INJECTIO 12-20-2015 ЮЛИЯ CHENG J1200 CPT-4 DIPHENHYDRAMINE HCL INJECTIO 12-21-2015 ЮЛИЯ CHENG J1200 CPT-4 DIPHENHYDRAMINE HCL INJECTIO 12-21-2015 ЮЛИЯ CHENG J2405 CPT-4 ONDANSETRON HCL INJECTION 12-16-2015 ЮЛИЯ CHENG J2405 CPT-4 ONDANSETRON HCL INJECTION 12-16-2015 ЮЛИЯ CHENG J2405 CPT-4 ONDANSETRON HCL INJECTION 12-21-2015 ЮЛИЯ CHENG J3370 CPT-4 VANCOMYCIN HCL INJECTION 12-16-2015 Lilly CHENG J3370 CPT-4 VANCOMYCIN HCL INJECTION 12-16-2015 Lilly CHENG J3370 CPT-4 VANCOMYCIN HCL INJECTION 12-17-2015 Lilly CHENG J3370 CPT-4 VANCOMYCIN HCL INJECTION 12-18-2015 Lilly CHENG J3370 CPT-4 VANCOMYCIN HCL INJECTION 12-19-2015 Lilly CHENG J3370 CPT-4 VANCOMYCIN HCL INJECTION 12-20-2015 Lilly CHENG J3370 CPT-4 VANCOMYCIN HCL INJECTION 12-20-2015 Lilly CHENG J3370 CPT-4 VANCOMYCIN HCL INJECTION 12-21-2015 Lilly CHENG J7040 CPT-4 NORMAL SALINE SOLUTION INFUS 12-16-2015 ЮЛИЯ CHENG J7040 CPT-4 NORMAL SALINE SOLUTION INFUS 12-16-2015 ЮЛИЯ CHENG J7040 CPT-4 NORMAL SALINE SOLUTION INFUS 12-17-2015 ЮЛИЯ CHENG J7040 CPT-4 NORMAL SALINE SOLUTION INFUS 12-18-2015 ЮЛИЯ CHENG J7040 CPT-4 NORMAL SALINE SOLUTION INFUS 12-19-2015 ЮЛИЯ CHENG J7040 CPT-4 NORMAL SALINE SOLUTION INFUS 12-20-2015 ЮЛИЯ CHENG J7040 CPT-4 NORMAL SALINE SOLUTION INFUS 12-20-2015 ЮЛИЯ CHENG J7040 CPT-4 NORMAL SALINE SOLUTION INFUS 12-21-2015 ЮЛИЯ CHENG Functional status Functional Status Finding Observation Time Hearing Prob Loc none 16-14-018360:20 Vision Problems yes 25-66-007952:20 Vision Correct Dev glasses 28-20-198284:20 Ambulation Asst Dev none 59-78-119183:20 Bathing Assistance none 52-50-567813:20 Eating Assistance none 67-71-369473:20 Dressing Assistance none 34-87-527143:20 Toileting Assistance none 64-15-470817:20 Transfer Assistance none 49-56-273650:20 Decline Slf Care/Mob no 00-80-153388:20 Phys Cond Stable yes 12-03-890295:20 Oxygen no 60-63-745088:05 IV Site Location Left AC 74-81-003126:05 IV Type peripheral 01-23-024743:05 IV Site Information discontinued 79-38-970252:05 IV Site Start Attmpt 1 times 68-02-509003:35 IV Site Isael 20 :55 IV Site Appearance WNL :55 IV Site Color clear : IV Site Patent yes : Dressing Changed yes :35 Dressing Type occlusive :55 Nursing Note pt IVF's done infusing, pt S L flushed with 10cc NS and DC'd, bandaide applied, pt denies pain or needs at this time, VS taken, ambulated off unit with friends to private car in stable condition. 61-19-044685:05 Cognitive Status Finding Observation Time Oriented To Date 5 Yes :[address] 5 Yes :20 Name 3 Objects 3 Yes : Name Object in Rm 2 Yes :20 Recall 3 Objects 3 Yes 90-01-381057:20 Repeats a Phrase 1 Yes :20 Follows Verbal Direc 3 Yes 94-91-909038:20 Follows Written Dire 1 Yes 95-89-562284:20 Write a Sentance 1 Yes 68-86-555888:20 Draw an Object 1 Yes 47-61-994103:20 Mini Mental Total 25 points 07-12-553509:20 Less than 20 Phys not applicable 06-70-178651:20 Learning Ability comprehends well :30 Neurological no :30 Psychological no 19-76-108679:30 Physical no 70-38-819498:30 Hearing no 65-40-151515:30 Law Office Manager Needed no :30 Sign Language no 61-97-157441:30 Emotional no :30 Vision yes :30 Laguage no :30 Financial no :30 Vital signs Type Value Date Respiration Rate 18breaths per minute : 05 Pulse 80beats per minute :05 Oxygen Saturation 98% 46-81-858289:05 BP Systolic 158mmHg 41-83-589977:05 BP Diastolic 84mmHg :05 Temperature 97.5F 37-84-955049:05 Height 64inches 15-83-339847:20 Weight 230LB 84-63-041097:20 Social history Type Value Smoking Status NEVER SMOKER Treatment Plan No treatment plan text is available for this visit. Hospital discharge instructions Valuables yes Valuable Type zoraida/david PNE Vac never Flu Vac 04/27/15 Tetanus Vac 06/27/13
--- OUTSIDE RECORDS SUMMARY | 2020-01-18 15:33 | XMS REPORT ---
Author Author [facility] Medic al Staff, TOMY Rashid Organization [facility] Address [address] [place], [place] [address] Phone [phone] Care Team Providers Care Guest Services Representative Name Role Phone CHRISTOPHER YORK, CAROLEE PP [phone] Summary purpose TRANSITION OF CARE AUTO GENERATION Chief Complaint and Reason for Visit Admit Diagnosis 1 RECTAL ANAL HEMORRHAGE Problem list No authorized problems tracked for [...] Code Type Description Date Performed Performing Physician 06099 CPT-4 EMERGENCY DEPT VISIT 10-21-2014 CORTEZ HOLLAND 06457 CPT-4 EMERGENCY DEPT VISIT 10-21-2014 CORTEZ HOLLAND Functional status Functional Status Finding Observation Time Abdomen Appearance obese :10 Abdomen soft :10 Ramírez no :10 Urination normal :10 Quality sym/unlabored :10 Cough absent :10 Secretions no :10 Airway natural :10 Chest Tube no :10 Oxygen no :08 Temp >100.4 no :10 Temp <96.8 yes :10 Chills with rigors no : HR [...]
--- OUTSIDE RECORDS SUMMARY | 2020-01-18 15:34 | XMS REPORT ---
Author Author [facility] Medic al Staff, TOMY Rashid Organization [facility] Address [address], [place] [address] Phone [phone] Care Team Providers Care Logistics Vice President Name Role Phone CAROLEE WHITE MD PP [phone] Summary purpose TRANSITION OF CARE AUTO GENERATION [...] tests and/or laboratory data RESULTS Radiology Results 92-24-725144:53:00 CT HEAD W/O CONT PACs Image DATE OF EXAM: Dec 19 2014 [id number] HEAD WO CONTRA ST : RADIOLOGY REPORT DATE OF SERVICE: 12/19/14 HISTORY: Severe headache. NONCONTRAST CT OF THE HEAD:1025 HOURS Axial scans were obtained at 5 mm interv als. No contrast was administered. The ventricles are normal in size. There is no mass or midline shift. There is no hemorrhage or infarction. Th ere are no unusual intra or extra-axial fluid collections. The bony calvarium is normal. The cerebellum and brainstem are normal. IMPRESSION: Normal CT head. Justin Carpenter MD MWD/jt12/19/2014 11:26:00 / 12/07 14:22:34 cc:Dr White This document has been electronically Signed by: On: DATE OF EXAM: Dec 19 2014 [id number] HEAD WO CINTHYA ST : RADIOLOGY REPORT DATE OF SERVICE: 12/19/14 HISTORY: Severe headache. NONCONTRAST CT OF THE HEAD:1025 HOURS Axial scans were obtained at 5 mm interv als. No contrast was administered. The ventricles are normal in size. There is no mass or midline shift. There is no hemorrhage or infarction. Th ere are no unusual intra or extra-axial fluid collections. The bony calvarium is normal. The cerebellum and brainstem are normal. IMPRESSION: Normal CT head. Justin Carpenter MD MWLilly/jt12/19/2014 11:26:00 / 12/07 14:22:34 cc:Dr White This document has been electronically Signed by: JUSTIN CARPENTER On: Dec 20 20149:53P Result Amended on 2014-12-20 at 21:53:36 . Previous status was NE. History of procedures Procedure Code Code Type Description Date Performed Performing Physician 03305 CPT-4 CT HEAD/BRAIN W/O DYE 12-19-2014 BRIONNA MERAZ J7030 CPT-4 NORMAL SALINE SOLUTION INFUS 12-19-2014 SILVANA MERAZ J2550 CPT-4 PROMETHAZIEN 25MG/ML 12-19-2014 SILVANA MERAZ J1885 CPT-4 TORADOL SYR 30MG/ML 12-19-2014 SILVANA MERAZ 25260 CPT-4 EMERGENCY DEPT VISIT 12-19-2014 SILVANA MERAZ 11184 CPT-4 EMERGENCY DEPT VISIT 12-19-2014 SILVANA MERAZ 77632 CPT-4 THER/PROPH/DIAG INJ, IV PUSH 12-19-2014 SILVANA MERAZ 23866 CPT-4 TX/PRO/DX INJ NEW DRUG ADDON 12-19-2014 SILVANA MERAZ 83559 CPT-4 HYDRATE IV INFUSION, ADD-ON 12-19-2014 SILVANA MERAZ Functional status Functional Status Finding Observation Time Abdomen Appearance obese 03-97-177284:10 Abdomen soft 95-73-347482:10 Bowel Sounds present 80-58-744291:10 Ramírez no 80-53-585980:10 Urination normal 61-62-517080:10 Quality sym/unlabored 72-42-960582:10 Cough absent 16-10-556786:10 Secretions no :10 Breath Sounds RUL clear :10 Breath Sounds RML clear :10 Breath Sounds RLL clear :10 Breath Sounds SARA clear :10 Breath Sounds LLL clear :10 Airway natural :10 Chest Tube no :10 Oxygen no :13 Temp >100.4 no :10 Temp <96.8 no :10 Chills with rigors no :10 HR > 90bpm no :10 Respirations > 20 no :10 Systolic <90 no :10 headache stiff neck no :10 Rapid Resp no 25-89-415621:10 IV Site Location Right hand 42-23-993962:40 IV Type peripheral 48-78-785897:40 IV Site Information new :40 IV Site Start Attmpt 1 times 86-90-132919:40 IV Site Isael 20 24-88-504420:40 IV Site Appearance WNL :40 IV Site Color clear :40 IV Site Patent no :39 Dressing Changed yes :40 Dressing Type occlusive 35-79-404228:40 Nursing Note VSS. Dsicahrge instructions reviewed/ Pt [...] BP Systolic 121mmHg :13 BP Diastolic 75mmHg 64-80-256579:13 Temperature 97.9F :13 Social history Type Value Smoking Status CURRENT EVERY DAY SMOKER Treatment Plan No treatment plan text is available for this visit. Hospital discharge instructions Dismissal Condition good Disposition on DC home DC Inst/Educ Give yes Med/Side Effects Rev yes PNE Vac none Flu Vac 2014 Tetanus Vac current
--- OUTSIDE RECORDS SUMMARY | 2020-01-18 15:34 | XMS REPORT ---
Author Author [facility] Medic al Staff, TOMY Rashid Organization [facility] Address [address], [place] [address] Phone [phone] Care Team Providers Care It Specialist Name Role Phone CHRISTOPHER YORK, CAROLEE PP [phone] Summary purpose TRANSITION OF CARE AUTO GENERATION [...] Time Abdomen Appearance obese :45 Abdomen soft :45 Bowel Sounds present :45 Ramírez no :45 Urination normal :45 Quality sym/unlabored :45 Cough absent :45 Secretions no :45 Breath Sounds RUL clear :45 Breath Sounds RML clear :45 Breath Sounds RLL clear :45 Breath Sounds SARA clear :45 Breath Sounds LLL clear :45 Airway natural :45 Chest Tube no :45 Oxygen no :25 Temp >100.4 no :45 Temp <96.8 no :45 Chills with rigors no :45 HR > 90bpm no :45 Respirations > 20 no :45 Systolic <90 no :45 headache stiff neck no :45 Rapid Resp no :45 Nursing Note Discharge instructions revie wed with pt-verbalized understanding. VS obtained, dc in good condition and ambulatory. :25 Vital signs Type Value Date Respiration Rate 18breaths per minute : 25 Pulse 76beats per minute : Oxygen Saturation 99% :25 BP Systolic 132mmHg :25 BP Diastolic 76mmHg :25 Temperature 98.0F 51-36-931553:25 Social history Type Value Smoking Status CURRENT EVERY DAY SMOKER Treatment Plan No treatment plan text is available for this visit. Hospital discharge instructions Dismissal Condition good Disposition on DC home DC Inst/Educ Give yes Med/Side Effects Rev yes PNE Vac none Flu Vac 2014 Tetanus Vac current
--- OUTSIDE RECORDS SUMMARY | 2020-01-18 15:34 | XMS REPORT ---
Author Author [facility] Medic al Staff, TOMY Rashid Organization [facility] Address [address], [place] [address] Phone [phone] Care Team Providers Care Language Therapist Name Role Phone CAROLEE WHITE MD PP [phone] Summary purpose TRANSITION OF CARE AUTO GENERATION [...] Code Type Description Date Performed Performing Physician 33488 CPT-4 EMERGENCY DEPT VISIT 05-08-2015 [place] [address] CPT-4 EMERGENCY DEPT VISIT 05-08-2015 RADHA AN Functional status Functional Status Finding Observation Time Diet regular :45 Abdomen Appearance obese :45 Abdomen soft :45 Ramírez no :45 Urination normal :45 Quality sym/unlabored :45 Cough absent :45 Secretions no :45 Airway natural :45 Chest Tube no :45 Oxygen no : Temp >100.4 no : Temp <96.8 no : Chills with rigors no : HR > 90bpm no : Respirations > 20 no : Systolic <90 no : headache stiff neck no :45 Nursing Note Pt discharged to home in goo d condition. Instructions in hand with pt ambulating out to car. :30 Vital signs Type Value Date Respiration Rate 20breaths per minute : Pulse 111beats per minute :3 0 Oxygen Saturation 100% :30 BP Systolic 114mmHg :30 BP Diastolic 71mmHg :30 Temperature 99.1F :30 Social history Type Value Smoking Status CURRENT EVERY DAY SMOKER Treatment Plan No treatment plan text is available for this visit. Hospital discharge instructions Dismissal Condition good Disposition on DC home DC Inst/Educ Give yes Med/Side Effects Rev yes Flu Vac 2013
--- OUTSIDE RECORDS SUMMARY | 2020-01-18 15:34 | XMS REPORT ---
Author Author [facility] Medic al Staff, JERI Rashid Organization [facility] Address [address], [place] [address] Phone [phone] Care Team Providers Care Industrial Real Estate Agent Name Role Phone ROCHELLE YORK, LENARD PP [phone] Summary purpose TRANSITION OF CARE AUTO GENERATION [...] Relevant diagnostic tests and/or laboratory data RESULTS 05-92-195492:11:00 Progress Note PROGRESS NOTE 09/23/2015 15:11:49 S: [...] antibiotics as an outpatient. Lenard Lucero MD /id 09/23/2015 15:11:49/2015 15:37:10 Clinic Code: [facility] [address] [place] [address]<END HEADER> 77-30-826685:53:00 Progress Note PROGRESS NOTE 09/22/2015 11:53:42 S: [...] the morning. 4. Monospot. Lenard Lucero MD METAL TEMPERER/nh 09/22/2015 11:53:42/2015 12:01:22 Clinic Code: [facility]: [facility] [address] [place] [address]<END HEADER> 52-02-294381:43:00 Progress Note PROGRESS NOTE 09/21/2015 09:43:37 S: [...] before applying gentamicin ointment. Lenard Lucero MD METAL TEMPERER/cdj09/21/2015 09:43:37/2015 10:52:44 Clinic Code: [facility] [address] [place] [address]<END HEADER> Routine Urinalysis 67-45-358002:50:00 Result Normal Range Units Color YELLOW Clarity Clear Specific Virgie 1.020 1.003-1.035 pH 7.5 4.5-8.0 Glucose NEGATIVE Bilirubin NEGATIVE Ketones NEGATIVE Protein NEGATIVE Urobilinogen 0.2 0-0.2 E.U./dL Nitrites NEGATIVE Blood NEGATIVE Leukocytes NEGATIVE WBCs No WBC's Seen RBCs No RBC's Seen. Squamous Epithelial 4+ Bacteria Rare Amount Blood Cultures 23-33-031312:55:00 Blood Culture Plate Date and Time 09/20/2015 15:58 SourceBLOOD CULTURE REPORT NoGrowth at 1 day. Unless otherwise notified. Final report in 5 Days. Release Date/Time: 0 09/22/2015 11:07 46-22-479623:50:00 Blood Culture Plate Date and Time 09/20/2015 15:58 SourceBLOOD CULTURE REPORT NoGrowth at 1 day. Unless otherwise notified. Final report in 5 Days. Release Date/Time: 0 09/22/2015 11:07 Therapeutic Drug Monitoring 19-37-352591:20:00 Result Normal Range Units Vancomycin Trough L 6.0 10-22 ug /ml 28-87-386726:42:00 Result Normal Range Units Vancomycin Trough L 3.5 10-22 ug /ml Routine Cultures 57-58-305798:01:00 Wound Culture Plate Date and Time 09/20/2015 [...] Culture Plate Date and Time 09/20/2015 20:01 [facility] No Growth After 24 Hours [...] Culture Plate Date and Time 09/20/2015 20:01 [facility] No Growth After 24 Hours Release Date/Time: 0 09/21/2015 07:27 CULTURE REPORT No Growth After 48 Hours Release Date/Time: 0 09/22/2015 07:38 GRAM STAIN No Organisms Seen. Release Date/Time: 0 09/21/2015 09:30 Wound Culture Plate Date and Time 09/20/2015 20:01 [facility] No Growth After 24 [...] Organisms Seen. Release Date/Time: 0 09/21/2015 09:31 01-40-473487:50:00 Urine Culture Plate Date and Time 09/20/2015 [...] TRIMETHSULFA >2/38 R TETRACYCLINE <= 4S Chemistry 26-35-426627:55:00 Result Normal Range Units Sodium 138 134-145 mEq/l Potassium 4.0 3.5-5.1 mEq/l Chloride 105 98-107 mEq/l CO2 25.5 22-28 mEq/l Glucose 87 70-105 mg/dl BUN L 4 7-18 mg/dl Creatinine L 0.58 0.6-1.0 mg/dl Calcium L 7.9 8.4-10.2 mg/dl Osmolality L 271.9 280-300 mOsm/L Anion GAP L 7.5 8-16 BUN/Creatinine Ratio L 6.9 10-20 Estimated GFR 127 >= 60 mL/min /1.7 96-13-622344:30:00 Result Normal Range Units Sodium 140 134-145 mEq/l Potassium 3.8 3.5-5.1 mEq/l Chloride 107 98-107 mEq/l CO2 23.3 22-28 mEq/l Glucose H 139 70-105 mg/dl BUN L 6 7-18 mg/dl Creatinine 0.61 0.6-1.0 mg/dl Calcium L 7.8 8.4-10.2 mg/dl Osmolality L 279.3 280-300 mOsm/L Anion GAP 9.7 8-16 BUN/Creatinine Ratio L 9.8 10-20 Estimated GFR 120 >= 60 mL/min /1.7 02-96-145157:50:00 Result Normal Range Units Sodium 138 134-145 [...] GFR 144 >= 60 mL/min /1.7 Hematology 26-63-175648:55:00 Result Normal Range Units WBC 9.1 4.8-10.8 103/uL RBC 4.9 4.2-5.4 106/uL HGB 13.7 12.0-16.0 g/dl HCT 41.8 36.9-47.0 % MCV 86.0 81-99 FL MCH 28.2 27-31 pg MCHC L 32.8 33-37 g/dl RDW 12.0 11.5-15.5 % PLT 271 130-400 103/uL MPV 9.0 7.3-10.4 FL Segs 68.0 40-70 % Bands 3.0 0-5 % Lymphs 27.0 20-40 % [place] 2.0 0-10 % :30:00 Result Normal Range Units WBC 6.1 4.8-10.8 [...] 09/21 at 07:16 by TIO. TO KATHY [place] 4.0 0-10 % Result successfully called to 2F on 09/21 at 07:16 by TIO. TO KATHY Eos 2.0 0-7 % Result successfully called to 2F on 09/21 at 07:16 by TIO. TO KATHY Atypical Lymphs H@ 7.0 0-5 % Result successfully called to 2F on 09/21 at 07:16 by TIO. TO KATHY 04-06-435041:30:00 Result Normal Range Units WBC 8.0 4.8-10.8 103/uL RBC 4.9 4.2-5.4 106/uL HGB 13.8 12.0-16.0 g/dl HCT 41.7 36.9-47.0 % MCV 85.8 81-99 FL MCH 28.4 27-31 pg MCHC 33.1 33-37 g/dl RDW 13.0 11.5-15.5 % PLT 317 130-400 103/uL MPV 9.0 7.3-10.4 FL Segs 42.0 40-70 % Bands 1.0 0-5 % Lymphs 37.0 20-40 % [place] 9.0 0-10 % Eos 6.0 0-7 % Baso 1.0 0-2 % Atypical Lymphs 4.0 0-5 % 01-39-383845:50:00 Result Normal Range Units WBC 9.5 4.8-10.8 103/uL RBC 5.1 4.2-5.4 106/uL HGB 14.7 12.0-16.0 g/dl HCT 42.2 36.9-47.0 % MCV 83.4 81-99 FL MCH 29.1 27-31 pg MCHC 34.8 33-37 g/dl RDW 12.9 11.5-15.5 % PLT 317 130-400 103/uL MPV 9.1 7.3-10.4 FL Segs H 72.0 40-70 % Bands H 6.0 0-5 % Lymphs L 11.0 20-40 % [place] 8.0 0-10 % Eos 1.0 0-7 % [...] Finding Observation Time Hearing Prob Loc none 82-14-330426:04 Vision Problems yes :04 Vision Correct Dev glasses :04 Ambulation Asst Dev none :04 Range of Motion full :32 Muscle Strength RUE 5 ROM full resist :32 Muscle Strength RLE 5 ROM full resist :32 Muscle Strength LUE 5 ROM full resist :32 Muscle Strength LLE 5 ROM full resist :32 Transfers independent :32 Ambulation up ad hernandez :32 Balance steady :32 Bathing Assistance none 74-04-206006:04 Eating Assistance none 25-76-143903:04 Dressing Assistance none :04 Toileting Assistance none :04 Transfer Assistance none 82-81-034203:04 Decline Slf Care/Mob no 26-68-467666:04 Phys Cond Stable yes 54-36-652805:04 Nutrition normal :32 Diet regular :32 Oral Cavity moist and intact :32 Teeth none :32 Dental Hygiene poor :32 Abdomen Appearance obese :32 Abdomen soft :32 Bowel Sounds present :32 NG Tube no :32 Feeding Tube none :32 Ramírez no :32 Cont Bladder Irr no :32 Ostomy no :32 Stool other (specify) Comment: None noted at this time : Color bloody Comment: Per patient report, did not visualize :46 Consistency hard :46 Urination normal :32 Urine Clarity clear :32 Urine Color yellow 89-23-023383:32 Quality sym/unlabored :32 Cough absent :32 Secretions no :32 Breath Sounds RUL clear :32 Breath Sounds RML clear :32 Breath Sounds RLL clear :32 Breath Sounds SARA clear :32 Breath Sounds LLL clear :32 Airway natural :32 Chest Tube no :32 Oxygen no 15-71-862391:38 C-PAP no 32-21-037724:32 BI-PAP no :32 New Infection wound infection :32 Temp >100.4 no :32 Temp <96.8 no :32 Chills with rigors no :32 HR > 90bpm no :32 Respirations > 20 no :32 Systolic <90 no :32 headache stiff neck no :32 WBC > 60163 no :32 WBC < 4000 no :32 IV Site Location right AC :50 IV Type peripheral 56-84-026261:50 IV Site Information existing :50 IV Site Start Attmpt 1 times 29-93-174877:54 IV Site Isael 22 :50 IV Site Appearance WNL :50 IV Site Color clear :50 IV Site Patent yes :50 Dressing Changed no (explain) Comment: C/D/I :50 Dressing Type occlusive :50 Nursing Note Discharge instructions given , IV site remains intake covered in coban. pt on discharged is stable and vital signs within normal limits. no signs of distress noted :22 Cognitive Status Finding Observation Time Oriented To Date 5 Yes :[address] 5 Yes :04 Name 3 Objects 3 Yes :04 Name Object in Rm 2 Yes :04 Recall 3 Objects 3 Yes :04 Repeats a Phrase 1 Yes :04 Follows Verbal Direc 3 Yes :04 Follows Written Dire 1 Yes :04 Write a Sentance 1 Yes :04 Draw an Object 1 Yes 92-52-440794:04 Mini Mental Total 25 points :04 Less than 20 Phys not applicable 59-69-995475:04 Learning Ability comprehends well :52 Neurological no :52 Psychological no :52 Physical no :52 Hearing no :52 Decating Machine Operator Needed no 99-70-067021:52 Sign Language no :52 Emotional no :52 Vision yes :52 Laguage no :52 Financial no :52 Vital signs Type Value Date Respiration Rate [...] already scheduled Follow Up Appt D/T 09/27/15 1850
--- OUTSIDE RECORDS SUMMARY | 2020-01-18 15:34 | XMS REPORT ---
Author Author [facility] Medic [facility] Staff, TOMY Rashid Organization [facility] Address [address], [place] [address] Phone [phone] Care Team Providers Care Weed Eradicator Name Role Phone CAROLEE WHITE MD PP [phone] CAROLEE WHITE MD PP [phone] Summary purpose TRANSITION OF CARE AUTO GENERATION [...] 5 ROM full resist :49 Transfers independent 57-25-214214:49 Ambulation up ad hernandez :49 Balance steady [...] :40 Physical no :40 Hearing no :40 Loan Reviewer Needed no :40 Sign Language no :40 [...]
--- OUTSIDE RECORDS SUMMARY | 2020-01-18 15:34 | XMS REPORT ---
Author Author [facility] Medic al Staff, TOMY Rashid Organization [facility] Address [address], [place] [address] Phone [phone] Care Team Providers Care Tele Tech Name Role Phone CHRISTOPHER YORK, CAROLEE PP [phone] Summary purpose TRANSITION OF CARE AUTO GENERATION [...]
--- OUTSIDE RECORDS SUMMARY | 2020-01-18 15:34 | XMS REPORT ---
Author Author [facility] Medic al Staff, TOMY Rashid Organization [facility] Address [address], [place] [address] Phone [phone] Care Team Providers Care Press Operator Name Role Phone CAROLEE WHITE MD PP [phone] CAROLEE WHITE MD PP [phone] Summary purpose TRANSITION OF CARE AUTO GENERATION [...] Problems yes :02 Vision Correct Dev glasses 61-72-099775:02 Ambulation Asst Dev none 85-79-798847:02 Range of Motion full :15 Muscle Strength RUE 5 ROM full resist 67-45-894238:15 Muscle Strength RLE 5 ROM full resist :15 Muscle Strength LUE 5 ROM full resist :15 Muscle Strength LLE 5 ROM full resist 30-28-488580:15 Transfers assist x 1 12-87-349073:15 Ambulation up ad hernandez 09-11-592091:15 Balance steady 24-13-555344:15 Bathing Assistance none 47-85-276581:02 Eating Assistance none :02 Dressing Assistance none :02 Toileting Assistance none 51-66-503595:02 Transfer Assistance none :02 Decline Slf Care/Mob no 92-66-328987:02 Phys Cond Stable yes :02 Nutrition normal 07-06-886370:15 Diet regular 77-75-902991:15 Oral Cavity moist and intact 23-49-308772:15 Teeth missing (specify) 97-39-329353:15 Dental Hygiene good 59-68-989900:15 Abdomen Appearance obese 10-33-027493:15 Abdomen soft 99-90-712589:15 Bowel Sounds present 51-71-873939:15 NG Tube no 39-08-225387:15 Feeding Tube none 55-20-900223:15 Ramírez no 65-59-409918:15 Cont Bladder Irr no 99-05-307854:15 Ostomy no 50-53-296512:15 Stool normal 96-29-660446:15 Urination normal 19-43-567763:15 Quality sym/unlabored 89-43-230279:15 Cough absent 42-80-005911:15 Secretions no 02-51-313888:15 Breath Sounds RUL clear 34-58-298460:15 Breath Sounds RML clear 57-14-750378:15 Breath Sounds RLL wheezes 61-48-337167:15 Breath Sounds SARA clear 04-65-155234:15 Breath Sounds LLL wheezes 26-78-002082:15 Airway natural 48-07-293293:15 Chest Tube no 57-30-839768:15 Oxygen no 79-42-504289:40 C-PAP no 59-83-693987:15 BI-PAP no 08-95-003954:15 Temp >100.4 no :15 Temp <96.8 no 76-99-318820:15 Chills with rigors no 52-63-975119:15 HR > 90bpm yes 24-60-474779:15 Respirations > 20 no 29-40-441290:15 Systolic <90 no 44-27-175150:15 headache stiff neck no 67-18-258981:15 Rapid Resp no 12-17-600222:15 IV Site Location L hand :30 IV Type peripheral :30 IV Site Information discontinued : IV Site Start Attmpt 1 times 07-13-435389:25 IV Site Isael 20 :15 IV Site [...] Learning Ability comprehends well :45 Neurological no 79-80-917388:45 Psychological no 39-81-982752:45 Physical no 67-21-996011:45 Hearing no 74-60-468220:45 Cooking Teacher Needed no :45 Sign Language no :45 Emotional no :45 Vision yes :45 Laguage no :45 Financial no :45 Vital signs Type Value Date Respiration Rate 18breaths per minute : 40 Pulse 98beats per minute :40 Oxygen Saturation 95% :40 BP Systolic 105mmHg 73-23-764672:40 BP Diastolic 68mmHg :40 Temperature 96.0F 44-68-988479:15 Height 67inches 42-57-672788:15 Weight 230LB 24-86-847798:15 Social history Type Value Smoking Status CURRENT [...] appt made (specify) Follow Up Appt D/T 11/19/14 1400
--- OUTSIDE RECORDS SUMMARY | 2020-01-18 15:34 | XMS REPORT ---
Author Author [facility] Medic al Staff, TOMY Rashid Organization [facility] Address [address], [place] [address] Phone [phone] Care Team Providers Care Benzene Washer Name Role Phone EDDIE SCOTT APRN PP [phone] Summary purpose TRANSITION OF CARE AUTO GENERATION Chief Complaint and Reason for Visit Admit Diagnosis 1 JOINT PAIN-PELVIS Problem list No authorized problems tracked for [...] Code Type Description Date Performed Performing Physician J1885 CPT-4 TORADOL SYR 30MG/ML 03-25-2015 RADHA ADAMES J2360 CPT-4 ORPHENADRINE INJECTION 03-25-2015 LORNA EATON 57170 CPT-4 EMERGENCY DEPT VISIT 03-25-2015 RADHA EATON 60759 CPT-4 EMERGENCY DEPT VISIT 03-25-2015 RADHA EATON 35818 CPT-4 THER/PROPH/DIAG INJ, SC/IM 03-25-2015 RADHA EATON Functional status Functional Status Finding Observation Time Diet regular 46-26-040836:15 Abdomen Appearance obese 33-34-617951:15 Abdomen soft 26-24-166969:15 Bowel Sounds present 68-54-896647:15 Ramírez no :15 Urination normal :15 Quality sym/unlabored :15 Cough absent :15 Secretions no : Breath Sounds RUL clear :15 Breath Sounds RML clear :15 Breath Sounds RLL clear :15 Breath Sounds SARA clear : Breath Sounds LLL clear :15 Airway natural : Chest Tube no : [...] 0 Oxygen Saturation 99% :30 BP Systolic 144mmHg :30 BP Diastolic 90mmHg :30 Temperature 98.1F :30 Social history Type Value Smoking Status CURRENT EVERY DAY SMOKER Treatment Plan No treatment plan text is available for this visit. Hospital discharge instructions Dismissal Condition good Disposition on DC home DC Inst/Educ Give yes Med/Side Effects Rev yes PNE Vac none Flu Vac 2014 Tetanus Vac current
--- OUTSIDE RECORDS SUMMARY | 2020-01-18 15:34 | XMS REPORT ---
Author Author [facility] Medic al Staff, TOMY Rashid Organization [facility] Address [address], [place] [address] Phone [phone] Care Team Providers Care Data Coder Operator Name Role Phone CHRISTOPHER YORK, CAROLEE PP [phone] Summary purpose TRANSITION OF CARE AUTO GENERATION [...] Functional Status Finding Observation Time Diet regular :58 Abdomen Appearance obese :58 Abdomen soft :58 Ramírez no :58 Urination normal :58 Quality sym/unlabored :58 Cough absent :58 Secretions no :58 Airway natural :58 Chest Tube no :58 Oxygen no :15 Temp >100.4 no :58 Temp <96.8 no :58 Chills with rigors no :58 HR > 90bpm no :58 Respirations > 20 no :58 Systolic <90 no :58 headache stiff neck no :58 Rapid Resp no :34 Nursing Note Pt was given rx for bactroba n and home instructions and was amblatory off of floor instable condtion :20 Vital signs Type Value Date Respiration Rate 16breaths per minute : 15 Pulse 88beats per minute :15 Oxygen Saturation 97% :15 BP Systolic 120mmHg :15 BP Diastolic 69mmHg :15 Temperature 98.7F :15 Social history Type Value Smoking Status CURRENT EVERY DAY SMOKER Treatment Plan No treatment plan text is available for this visit. Hospital discharge instructions Dismissal Condition good Disposition on DC home DC Inst/Educ Give yes Med/Side Effects Rev yes Comment: bactroban PNE Vac none Flu Vac 2015 Tetanus Vac current
--- OUTSIDE RECORDS SUMMARY | 2020-01-18 15:34 | XMS REPORT ---
Author Author [facility] Medic al Staff, TOMY Rashid Organization [facility] Address [address], [place] [address] Phone [phone] Care Team Providers Care Recreational Resort Manager Name Role Phone ROCHELLE YORK, LENARD PP [phone] Summary purpose TRANSITION OF CARE AUTO GENERATION [...] tests and/or laboratory data RESULTS Routine Cultures 28-73-899634:55:00 Wound Culture Plate Date and Time 10/30/2015 15:25 [facility] CULTURE REPORT No Growth After 24 Hours Release Date/Time: 0 10/31/2015 08:16 CULTURE REPORT No Pathogens Isolated Release Date/Time: 0 11/01/2015 08:19 GRAM STAIN Rare Amount WBC's Release Date/Time: 0 10/31/2015 08:16 History of procedures Procedure Code Code Type Description Date Performed Performing Physician [id number] ICD10 Drainage of Buttock Subcu/Fascia, Open Ap proach 87844 CPT-4 CULTR BACTERIA, EXCEPT BLOOD 10-30-2015 SILVANA MERAZ 77416 CPT-4 SMEAR, GRAM STAIN 10-30-2015 SILVANA MEDELLIN 84053 CPT-4 EMERGENCY DEPT VISIT 10-30-2015 SILVANA MERAZ 66981 CPT-4 DRAINAGE OF SKIN ABSCESS 10-30-2015 Amna MERAZ 24476 CPT-4 DRAINAGE OF SKIN ABSCESS 10-30-2015 B NEGRA MERAZ Functional status Functional Status Finding Observation Time Abdomen Appearance obese :45 Abdomen non-tender :45 Urination normal 52-72-655920:45 Quality sym/unlabored :45 Cough absent :45 Airway [...]
--- OUTSIDE RECORDS SUMMARY | 2020-01-18 15:34 | XMS REPORT ---
Author Author [facility] Medic al Staff, TOMY Rashid Organization [facility] Address [address], [place] [address] Phone [phone] Care Team Providers Care Senior Product Analyst Name Role Phone CHRISTOPHER YORK, CAROLEE PP [phone] ROCHELLE YORK, LENARD PP [phone] Summary purpose TRANSITION OF CARE AUTO GENERATION [...] Code Type Description Date Performed Performing Physician 15705 CPT-4 EMERGENCY DEPT VISIT 09-12-2015 LENNY SALAS 69053 CPT-4 EMERGENCY DEPT VISIT 09-12-2015 LENNY SALAS 46465 CPT-4 THER/PROPH/DIAG INJ SC/IM 09-12-2015 PAM SALAS J2405 CPT-4 ONDANSETRON HCL INJECTION 09-12-2015 PAM SALAS J1170 CPT-4 HYDROMORPHONE INJECTION 09-12-2015 CHASIDY SALAS Functional status Functional Status Finding Observation Time Abdomen Appearance obese :40 Abdomen soft :40 Ramírez no :40 Urination normal :40 Quality sym/unlabored :40 Cough absent :40 Secretions no :40 Airway natural :40 Chest Tube no :40 Oxygen no :50 Temp >100.4 no :40 Temp <96.8 no :40 Chills with rigors no :40 HR > 90bpm yes :40 Respirations > 20 no :40 Systolic <90 no :40 headache stiff neck no :40 IV Site Location no iv access :40 Nursing Note pt dc'd to home at this time in good condition and in care of friend. pt exited ambulatory with all belongings. vicodin hp #4 in hand. :50 Vital signs Type Value Date Respiration Rate 18breaths per minute : 50 Pulse 88beats per minute :50 Oxygen Saturation 99% :50 BP Systolic 165mmHg :50 BP Diastolic 78mmHg :50 Temperature 97.9F :50 Social history Type Value Smoking Status CURRENT EVERY DAY SMOKER Treatment Plan No treatment plan text is available for this visit. Hospital discharge instructions Dismissal Condition good Disposition on DC home DC Inst/Educ Give yes Med/Side Effects Rev yes PNE Vac none Flu Vac 2014 Tetanus Vac 2012
--- OUTSIDE RECORDS SUMMARY | 2020-01-18 15:34 | XMS REPORT ---
Author [facility] Medic al Staff, TOMY Rashid Organization [facility] Address [address], [place] [address] Phone [phone] Care Team Providers Care Glass Lined Tank Repairer Name Role Phone SILVANA MENON MD PP [phone] Summary purpose TRANSITION OF CARE AUTO GENERATION [...] diagnostic tests and/or laboratory data RESULTS Chemistry 95-80-897127:20:00 Result Normal Range Units Sodium 141 134-145 [...] Protein < 0.2 0-1 m g/dl Hematology 00-69-044071:20:00 Result Normal Range Units WBC H 17.8 4.8-10.8 103/uL RBC H 5.5 4.2-5.4 106/uL HGB 16.0 12.0-16.0 g/dl HCT H 47.1 36.9-47.0 % MCV 86.4 81-99 FL MCH 29.4 27-31 pg MCHC 34.0 33-37 g/dl RDW 13.1 11.5-15.5 % PLT 369 130-400 103/uL MPV 9.0 7.3-10.4 FL Neutro % H 70.5 40-70 % Lymph % 20.9 20-40 % [place] % 6.8 0-10.0 % Eos % 1.0 0-7.0 % Baso % 0.1 0-2 % Neutro # H 12.5 1.5-7.5 103/uL Lymph # 3.7 0.9-4.0 103/uL [place] # H 1.2 0-0.8 103/uL Eos # 0.2 0-0.6 103/uL Baso # 0.0 0-0.1 103/uL Radiology Results 84-80-446632:20:00 Result Normal Range Units MPV 9.0 7.3-10.4 FL History of procedures Procedure Code Code Type Description Date Performed Performing Physician 07361 CPT-4 ROUTINE VENIPUNCTURE 12-30-2015 LENNY SALAS 37840 CPT-4 COMPREHEN METABOLIC PANEL 12-30-2015 PAM SALAS 75412 CPT-4 COMPLETE CBC W/AUTO DIFF WBC 12-30-2015 PAM SALAS 87543 CPT-4 C-REACTIVE PROTEIN 12-30-2015 PAM SALAS 63039 CPT-4 EMERGENCY DEPT VISIT 12-30-2015 LENNY SALAS 03399 CPT-4 EMERGENCY DEPT VISIT 12-30-2015 [facility] Functional status Functional Status Finding Observation Time Muscle Strength RLE 4 ROM slight resist :15 Abdomen Appearance obese :15 Abdomen non-tender :15 Ramírez no :15 Urination normal :15 Quality sym/unlabored : Cough absent :15 Secretions no :15 Airway [...]
--- OUTSIDE RECORDS SUMMARY | 2020-01-18 15:34 | XMS REPORT ---
Author Author [facility] Medic al StaffTOMY Organization [facility] Address [address], [place] [address] Phone [phone] Care Team Providers Care Block Sorter Name Role Phone EDDIE SCOTT APRN PP [phone] Summary purpose TRANSITION OF CARE AUTO GENERATION Chief Complaint and Reason for Visit Admit Diagnosis 1 SKIN DISORDER NOS Problem list No authorized problems tracked for [...] Performing Physician J1885 CPT-4 TORADOL SYR 30MG/ML 02-19-2015 RADHA BUCKNER 73419 CPT-4 EMERGENCY DEPT VISIT 02-18-2015 [place] [address] CPT-4 EMERGENCY DEPT VISIT 02-18-2015 [place] [address] CPT-4 THER/PROPH/DIAG INJ, SC/IM 02-18-2015 RADHA AN Functional status Functional Status Finding Observation Time Abdomen Appearance obese 45-70-121409:45 Abdomen soft 11-07-464277:45 Bowel Sounds present 81-34-758215:45 Ramírez no 62-81-764743:45 Urination normal 62-46-435624:45 Quality sym/unlabored 33-94-971757:45 Cough absent :45 Secretions no :45 Breath Sounds RUL clear :45 Breath Sounds RML clear :45 Breath Sounds RLL clear :45 Breath Sounds SARA clear :45 Breath Sounds LLL clear :45 Airway natural :45 Chest Tube no :45 Oxygen no :00 Temp >100.4 no :45 Temp <96.8 no :45 Chills with rigors no : HR > 90bpm no : Respirations > 20 no :45 Systolic <90 no :45 headache stiff neck no :45 Rapid Resp no :45 Nursing Note clindamycin 300mg PO, zofran 4mg ODT admin. toradol 60mg IM admin in R gluteus angeles. Discharge instructions revewied with pt-verbalized understanding. VS obtained, dc in good condition and ambulatory. 10-95-195377:00 Vital signs Type Value Date Respiration Rate 16breaths per minute : 00 Pulse 76beats per minute :00 Oxygen Saturation 100% 69-12-042729:00 BP Systolic 140mmHg :00 BP Diastolic 79mmHg :00 Temperature 98.4F :34 Social history Type Value Smoking Status CURRENT EVERY DAY SMOKER Treatment Plan No treatment plan text is available for this visit. Hospital discharge instructions Dismissal Condition good Disposition on DC home DC Inst/Educ Give yes Med/Side Effects Rev yes PNE Vac none Flu Vac 2014 Tetanus Vac current
--- OUTSIDE RECORDS SUMMARY | 2020-01-18 15:34 | XMS REPORT ---
Author Author [facility] Medic al Staff, TOMY Rashid Organization [facility] Address [address], [place] [address] Phone [phone] Care Team Providers Care Prawn Trawler Hand Name Role Phone LYNSEY YORK, SILVANA PP [phone] Summary purpose TRANSITION OF CARE AUTO GENERATION [...] and/or laboratory data RESULTS Therapeutic Drug Monitoring 03-63-219306:19:00 Result Normal Range Units Vancomycin Trough L 8.3 10-22 ug /ml 78-60-157679:10:00 Result Normal Range Units Vancomycin Trough L 5.2 10-22 ug /ml 91-03-030815:47:00 Result Normal Range Units Vancomycin Trough L 5.3 10-22 ug /ml History of procedures Procedure Code Code Type Description Date Performed Performing Physician 93666 CPT-4 ROUTINE VENIPUNCTURE 12-16-2015 ЮЛИЯ CHENG 69664 CPT-4 ROUTINE VENIPUNCTURE 12-17-2015 ЮЛИЯ CHENG 50536 CPT-4 ROUTINE VENIPUNCTURE 12-20-2015 ЮЛИЯ CHENG 24293 CPT-4 ASSAY OF VANCOMYCIN 12-16-2015 ЮЛИЯ CHENG 72068 CPT-4 ASSAY OF VANCOMYCIN 12-17-2015 ЮЛИЯ CHENG 88806 CPT-4 ASSAY OF VANCOMYCIN 12-20-2015 ЮЛИЯ CHENG 14049 CPT-4 THER/PROPH/DIAG IV INF, INIT 12-16-2015 ЮЛИЯ CHENG 80897 CPT-4 THER/PROPH/DIAG IV INF, INIT 12-16-2015 ЮЛИЯ CHENG 48814 CPT-4 THER/PROPH/DIAG IV INF, INIT 12-17-2015 ЮЛИЯ CHENG 19318 CPT-4 THER/PROPH/DIAG IV INF, INIT 12-17-2015 ЮЛИЯ CHENG 36947 CPT-4 THER/PROPH/DIAG IV INF, INIT 12-18-2015 ЮЛИЯ CHENG 35226 CPT-4 THER/PROPH/DIAG IV INF, INIT 12-18-2015 ЮЛИЯ CHENG 41407 CPT-4 THER/PROPH/DIAG IV INF, INIT 12-19-2015 ЮЛИЯ CHENG 56173 CPT-4 THER/PROPH/DIAG IV INF, INIT 12-19-2015 ЮЛИЯ CHENG 70343 CPT-4 THER/PROPH/DIAG IV INF ADDON 12-16-2015 ЮЛИЯ CHENG 82686 CPT-4 THER/PROPH/DIAG IV INF ADDON 12-16-2015 ЮЛИЯ CHENG 51728 CPT-4 THER/PROPH/DIAG IV INF ADDON 12-17-2015 ЮЛИЯ CHENG 00966 CPT-4 THER/PROPH/DIAG IV INF ADDON 12-17-2015 ЮЛИЯ CHENG 94990 CPT-4 THER/PROPH/DIAG IV INF ADDON 12-18-2015 ЮЛИЯ CHENG 07429 CPT-4 THER/PROPH/DIAG IV INF ADDON 12-18-2015 ЮЛИЯ CHENG 96601 CPT-4 THER/PROPH/DIAG IV INF ADDON 12-19-2015 ЮЛИЯ CHENG 74679 CPT-4 THER/PROPH/DIAG IV INF ADDON 12-19-2015 ЮЛИЯ CHENG 00997 CPT-4 TX/PRO/DX INJ NEW DRUG ADDON 12-16-2015 ЮЛИЯ CHENG 17336 CPT-4 TX/PRO/DX INJ NEW DRUG ADDON 12-16-2015 ЮЛИЯ CHENG 53245 CPT-4 TX/PRO/DX INJ NEW DRUG ADDON 12-17-2015 ЮЛИЯ CHENG 91398 CPT-4 TX/PRO/DX INJ NEW DRUG ADDON 12-17-2015 ЮЛИЯ CHENG 39759 CPT-4 TX/PRO/DX INJ NEW DRUG ADDON 12-18-2015 ЮЛИЯ CHENG 19960 CPT-4 TX/PRO/DX INJ NEW DRUG ADDON 12-18-2015 ЮЛИЯ CHENG 76254 CPT-4 TX/PRO/DX INJ NEW DRUG ADDON 12-19-2015 ЮЛИЯ CHENG 76033 CPT-4 TX/PRO/DX INJ NEW DRUG ADDON 12-19-2015 [...] J7040 CPT-4 NORMAL SALINE SOLUTION INFUS 12-20-2015 ЮИЛЯ CHENG J7040 CPT-4 NORMAL SALINE SOLUTION INFUS 12-21-2015 ЮЛИЯ CHENG Functional status Functional Status Finding Observation Time Hearing Prob Loc none 60-74-657914:20 Vision Problems yes 39-76-510555:20 Vision Correct Dev glasses 55-44-459227:20 Ambulation Asst Dev none 94-27-938343:20 Bathing Assistance none 03-49-612390:20 Eating Assistance none 81-99-143192:20 Dressing Assistance none 66-65-674602:20 Toileting Assistance none 63-89-265631:20 Transfer Assistance none 84-71-614193:20 Decline Slf Care/Mob no 54-70-032568:20 Phys Cond Stable yes 27-29-457963:20 Oxygen no 34-56-309958:05 IV Site Location Left AC 98-83-065308:05 IV Type peripheral 22-34-278394:05 IV Site Information discontinued 21-86-849170:05 IV Site Start Attmpt 1 times 52-22-134527:35 IV Site Isael 20 :55 IV Site [...] friends to private car in stable condition. 65-24-324728:05 Cognitive Status Finding Observation Time Oriented To Date 5 Yes :[address] 5 Yes :20 Name 3 Objects 3 Yes : Name Object in Rm 2 Yes :20 Recall 3 Objects 3 Yes 03-75-951420:20 Repeats a Phrase 1 Yes :20 Follows Verbal Direc 3 Yes 78-19-023528:20 Follows Written Dire 1 Yes 31-84-568211:20 Write a Sentance 1 Yes 50-61-709305:20 Draw an Object 1 Yes 11-48-081246:20 Mini Mental Total 25 points 85-29-408935:20 Less than 20 Phys not applicable 82-46-849236:20 Learning Ability comprehends well :30 Neurological no :30 Psychological no 48-63-489427:30 Physical no 27-76-949914:30 Hearing no 26-64-129042:30 Certified Art Therapist Needed no :30 Sign Language no 84-79-716438:30 Emotional no :30 Vision yes :30 Laguage no :30 Financial no :30 Vital signs Type Value Date Respiration Rate 18breaths per minute : 05 Pulse 80beats per minute :05 Oxygen Saturation 98% 06-72-269843:05 BP Systolic 158mmHg 73-22-811587:05 BP Diastolic 84mmHg :05 Temperature 97.5F 50-33-295817:05 Height 64inches 70-47-153922:20 Weight 230LB 08-04-175192:20 Social history Type Value Smoking Status NEVER SMOKER Treatment Plan No treatment plan text is available for this visit. Hospital discharge instructions Valuables yes Valuable Type zoraiad/daivd PNE Vac never Flu Vac 04/27/15 Tetanus Vac 06/27/13
--- OUTSIDE RECORDS SUMMARY | 2020-01-18 15:34 | XMS REPORT ---
Author Author [facility] Medic al Staff, TOMY Rashid Organization [facility] Address [address], [place] [address] Phone [phone] Care Team Providers Care Can Reconditioner Name Role Phone SILVANA MENON MD PP [phone] Summary purpose TRANSITION OF CARE AUTO GENERATION [...] diagnostic tests and/or laboratory data RESULTS Hematology 35-54-461040:30:00 Result Normal Range Units WBC H 19.6 4.8-10.8 103/uL RBC 5.0 4.2-5.4 106/uL HGB 14.3 12.0-16.0 g/dl HCT 42.5 36.9-47.0 % MCV 85.9 81-99 FL MCH 28.9 27-31 pg MCHC 33.6 33-37 g/dl RDW 13.1 11.5-15.5 % PLT 340 130-400 103/uL MPV 9.4 7.3-10.4 FL Neutro % H 86.8 40-70 % Lymph % L 7.5 20-40 % [place] % 4.5 0-10.0 % Eos % 0.0 0-7.0 % Baso % 0.1 0-2 % Neutro # H 17.0 1.5-7.5 103/uL Lymph # 1.5 0.9-4.0 103/uL [place] # H 0.9 0-0.8 103/uL Eos # 0.0 0-0.6 103/uL Baso # 0.0 0-0.1 103/uL Reference Lab ([facility]) :30:00 Result Normal Range Units D-Dimer < 100 0-400 ng/ml Hematology - Other ([facility] [place]) :30:00 Result Normal Range Units Sed Rate 4 0-20 Radiology Results :30:00 Result Normal Range Units MPV 9.4 7.3-10.4 FL History of procedures No procedures recorded for this patient visit. Functional status Functional Status Finding Observation Time Muscle Strength RLE 4 ROM slight resist 54-52-491710:20 Abdomen Appearance obese 68-82-176297:20 Abdomen soft :20 Ramírez no 84-04-634817:20 Urination normal 64-70-210862:20 Quality sym/unlabored 65-81-627605:20 Cough absent :20 Secretions no 63-86-963209:20 Airway natural :20 Chest Tube no 49-36-407412:20 Oxygen no 29-50-347258:23 Oxygen Flow Rate RA 59-71-198437:23 Temp >100.4 no :20 Temp <96.8 no :20 Chills with rigors no :20 HR > 90bpm no :20 Respirations > 20 no :20 Systolic <90 no :20 headache stiff neck no :20 Nursing Note Discharge instructions revie wed-verbalized understanding. [...]
--- OUTSIDE RECORDS SUMMARY | 2020-01-18 15:34 | XMS REPORT ---
Author Author [facility] Medic al Staff, TOMY Rashid Organization [facility] Address [address], [place] [address] Phone [phone] Care Team Providers Care Mail Distribution Scheme Examiner Name Role Phone CHRISTOPHER YORK, CAROLEE PP [phone] Summary purpose TRANSITION OF CARE AUTO GENERATION [...] and/or laboratory data RESULTS Therapeutic Drug Monitoring 16-62-225779:15:00 Result Normal Range Units Vancomycin Trough L 6.2 10-22 ug /ml 19-18-389257:25:00 Result Normal Range Units Vancomycin Trough L 3.6 10-22 ug /ml 14-36-917454:30:00 Result Normal Range Units Vancomycin Trough L 2.8 10-22 ug /ml Chemistry 03-26-779356:13:00 Result Normal Range Units BUN L 5 7-18 mg/dl Creatinine 0.69 0.6-1.0 mg/dl Estimated GFR 105 >= 60 mL/min /1.7 History of procedures Procedure Code Code Type Description Date Performed Performing Physician 72920 CPT-4 ASSAY OF UREA NITROGEN 12-17-2014 MARCO GARZA 12600 CPT-4 ASSAY OF CREATININE 12-17-2014 CATY GARZA J7040 CPT-4 NORMAL SALINE SOLUTION INFUS 12-17-2014 CATY GARZA J3370 CPT-4 VANCOMYCIN HCL INJECTION 12-17-2014 Margo GARZA 48970 CPT-4 ROUTINE VENIPUNCTURE 12-17-2014 STAN WHITE 57214 CPT-4 ASSAY OF VANCOMYCIN 12-18-2014 CATY GARZA J7040 CPT-4 NORMAL SALINE SOLUTION INFUS 12-18-2014 CATY GARZA J3370 CPT-4 VANCOMYCIN HCL INJECTION 12-18-2014 Margo GARZA J7040 CPT-4 NORMAL SALINE SOLUTION INFUS 12-18-2014 CATY GARZA J3370 CPT-4 VANCOMYCIN HCL INJECTION 12-18-2014 Margo GARZA J2405 CPT-4 ONDANSETRON HCL INJECTION 12-18-2014 CAROLEE WHITE J3370 CPT-4 VANCOMYCIN HCL INJECTION 12-18-2014 Margo GARZA 76827 CPT-4 ROUTINE VENIPUNCTURE 12-18-2014 CATY GARZA J2405 CPT-4 ONDANSETRON HCL INJECTION 12-18-2014 ЮЛИЯ FANG J7040 CPT-4 NORMAL SALINE SOLUTION INFUS 12-19-2014 CATY GARZA J3370 CPT-4 VANCOMYCIN HCL INJECTION 12-19-2014 Margo GARZA 04257 CPT-4 ASSAY OF VANCOMYCIN 12-20-2014 CATY GARZA [...] CPT-4 VANCOMYCIN HCL INJECTION 12-20-2014 Margo GARZA 24437 CPT-4 ROUTINE VENIPUNCTURE 12-20-2014 CATY GARZA 52214 CPT-4 THER/PROPH/DIAG IV INF, INIT 12-17-2014 CATY GARZA 07563 CPT-4 THER/PROPH/DIAG IV INF ADDON 12-17-2014 CATY GARZA 22918 CPT-4 THER/PROPH/DIAG IV INF, INIT 12-18-2014 CATY GARZA 53789 CPT-4 THER/PROPH/DIAG IV INF ADDON 12-18-2014 CATY GARZA 11826 CPT-4 TX/PRO/DX INJ NEW DRUG ADDON 12-18-2014 CATY GARZA 34701 CPT-4 THER/PROPH/DIAG IV INF, INIT 12-18-2014 CATY GARZA 83229 CPT-4 THER/PROPH/DIAG IV INF ADDON 12-18-2014 CATY GARZA 40610 CPT-4 TX/PRO/DX INJ NEW DRUG ADDON 12-18-2014 CATY GARZA 71457 CPT-4 THER/PROPH/DIAG IV INF, INIT 12-19-2014 CATY GARZA 29450 CPT-4 TX/PRO/DX INJ NEW DRUG ADDON 12-19-2014 CATY GARZA 83646 CPT-4 THER/PROPH/DIAG IV INF, INIT 12-19-2014 CATY GARZA 84858 CPT-4 THER/PROPH/DIAG IV INF, INIT 12-20-2014 CATY GARZA 79449 CPT-4 THER/PROPH/DIAG IV INF ADDON 12-20-2014 CATY GARZA 56363 CPT-4 TX/PRO/DX INJ NEW DRUG ADDON 12-20-2014 CATY GARZA 38774 CPT-4 THER/PROPH/DIAG IV INF, INIT 12-20-2014 CATY GARZA 72802 CPT-4 THER/PROPH/DIAG IV INF ADDON 12-20-2014 CATY GARZA 97153 CPT-4 TX/PRO/DX INJ NEW DRUG ADDON 12-20-2014 CATY GARZA 31820 CPT-4 ASSAY OF VANCOMYCIN 12-21-2014 CATY GARZA J7040 CPT-4 NORMAL SALINE SOLUTION INFUS 12-21-2014 CATY GARZA J3370 CPT-4 VANCOMYCIN HCL INJECTION 12-21-2014 Margo GARZA J2405 CPT-4 ONDANSETRON HCL INJECTION 12-21-2014 CATY GARZA J7040 CPT-4 NORMAL SALINE SOLUTION INFUS 12-21-2014 CATY GARZA J3370 CPT-4 VANCOMYCIN HCL INJECTION 12-21-2014 Margo GARZA 47026 CPT-4 ROUTINE VENIPUNCTURE 12-21-2014 STAN WHITE 01490 CPT-4 THER/PROPH/DIAG IV INF, INIT 12-21-2014 CATY GARZA 01637 CPT-4 THER/PROPH/DIAG IV INF ADDON 12-21-2014 CATY GARZA 38177 CPT-4 TX/PRO/DX INJ NEW DRUG ADDON 12-21-2014 CATY GARZA 50098 CPT-4 THER/PROPH/DIAG IV INF, INIT 12-21-2014 CATY GARZA 52951 CPT-4 THER/PROPH/DIAG IV INF ADDON 12-21-2014 CATY GARZA J2405 CPT-4 ONDANSETRON HCL INJECTION 12-22-2014 CATY GARZA J7040 CPT-4 NORMAL SALINE SOLUTION INFUS 12-22-2014 CATY GARZA J3370 CPT-4 VANCOMYCIN HCL INJECTION 12-22-2014 Margo LG GARZA 89323 CPT-4 THER/PROPH/DIAG IV INF, INIT 12-22-2014 CATY GARZA 15390 CPT-4 TX/PRO/DX INJ NEW DRUG ADDON 12-22-2014 CATY GARZA 58482 CPT-4 THER/PROPH/DIAG IV INF, INIT 12-22-2014 CATY GARZA 51918 CPT-4 THER/PROPH/DIAG IV INF ADDON 12-22-2014 CATY GARZA J2405 CPT-4 ONDANSETRON HCL INJECTION 12-22-2014 CATY GARZA J7040 CPT-4 NORMAL SALINE SOLUTION INFUS 12-23-2014 CATY GARZA J3370 CPT-4 VANCOMYCIN HCL INJECTION 12-23-2014 Margo LG GARZA Functional status Functional Status Finding Observation Time Vision Problems yes :55 Vision Correct Dev glasses 84-89-463072:55 Ambulation Asst Dev none 72-23-433407:55 Bathing Assistance none :55 Eating Assistance none :55 Dressing Assistance none :55 Toileting Assistance none :55 Transfer Assistance none :55 Decline Slf Care/Mob no :55 Phys Cond Stable yes :55 Oxygen no :55 Oxygen Flow Rate ra 53-72-004272:55 IV Site Location L AC :05 IV [...] :57 Physical no :57 Hearing no :57 Manager Agriculture Needed no :57 Sign Language no :57 Emotional no :57 Vision yes :57 Laguage no :57 Financial no :57 Vital signs Type Value Date Respiration Rate 18breaths per minute : 55 Pulse 68beats per minute :55 Oxygen Saturation 100% :55 BP Systolic 146mmHg 20-56-686169:55 BP Diastolic 79mmHg 32-97-860078:55 Temperature 97.9F 11-72-993678:55 Height 65inches 69-96-586804:35 Weight 225LB 79-09-998049:35 Social history No Social History or smoking status observations were recorded for this visit. ( Unknown if ever smoked.) Treatment Plan No treatment plan text is available for this visit. Hospital discharge instructions Valuables yes Valuable Type jewelry (describe) PNE Vac never Flu Vac 04/2014 Tetanus Vac 06/2013
--- OUTSIDE RECORDS SUMMARY | 2020-01-18 15:34 | XMS REPORT ---
Author Author [facility] Medic al Staff, TOMY Rashid Organization [facility] Address [address] [place], [place] [address] Phone [phone] Care Team Providers Care Building Inspection Engineer Name Role Phone CHRISTOPHER YORK, CAROLEE PP [phone] Summary purpose TRANSITION OF CARE AUTO GENERATION [...]
--- OUTSIDE RECORDS SUMMARY | 2020-01-18 15:34 | XMS REPORT ---
Author Author [facility] Medic al Staff, TOMY Rashid Organization [facility] Address [address], [place] [address] Phone [phone] Care Team Providers Care Whittling Room Operator Name Role Phone SONIA PARK GUIDE, EDDIE PP [phone] SONIA PARK GUIDE, EDDIE PP [phone] Summary purpose TRANSITION OF CARE AUTO GENERATION [...] Finding Observation Time Hearing Prob Loc none 71-62-005148:45 Vision Problems yes 87-84-078626:45 Vision Correct Dev glasses 82-67-615176:45 Ambulation Asst Dev none 95-92-538563:45 Range of Motion full :30 Muscle Strength RUE 5 ROM full resist 80-14-247028:30 Muscle Strength RLE 5 ROM full resist :30 Muscle Strength LUE 5 ROM full resist :30 Muscle Strength LLE 5 ROM full resist 22-29-317231:30 Transfers independent : Ambulation up ad hernandez [...] good condition accompanied by grandmother and RN. 78-89-752828:05 Cognitive Status Finding Observation Time Learning Ability comprehends well :50 Neurological no :50 Psychological no :50 Physical no :50 Hearing no :50 Bottle Line Worker Needed no :50 Sign Language no :50 Emotional no :50 Vision yes :50 Laguage no :50 Financial no :50 Vital signs Type Value Date Respiration Rate 12 :05 Pulse 87 :05 Oxygen Saturation 90% :45 BP Systolic 118 01-05-966210:05 BP Diastolic 52 :05 Temperature 96.2F 31-34-390140:45 Height 63inches :17 Weight 220LB 95-59-222560:17 Social history No Social History or smoking [...] Apr 08, 2015 at 2:20 pm at [facility] Follow Up Appt D/T 04/08/15 2:20 pm
--- OUTSIDE RECORDS SUMMARY | 2020-01-18 15:35 | XMS REPORT ---
Author Author [facility] Medic al Staff, TOMY Rashid Organization [email or web address] Address [address], [place] [address] Phone [phone] Summary purpose TRANSITION OF CARE AUTO GENERATION [...] Code Type Description Date Performed Performing Physician 21863 CPT-4 EMERGENCY DEPT VISIT 03-01-2015 [place] [address] CPT-4 EMERGENCY DEPT VISIT 03-01-2015 RADHA AN Functional status Functional Status Finding [...]
--- OUTSIDE RECORDS SUMMARY | 2020-01-18 15:35 | XMS REPORT ---
Author Author [facility] Medic al StaffTOMY Organization [facility] Address [address] [place], [place] [address] Phone [phone] Care Team Providers Care Rn Transfer Name Role Phone EDDIE SCOTT APRN PP [phone] Summary purpose TRANSITION OF CARE AUTO GENERATION [...] :45 Oxygen no :00 Temp >100.4 no : Temp <96.8 no : Chills with rigors no : HR > 90bpm no : Respirations > 20 no : Systolic <90 no : headache stiff neck no :45 Rapid Resp no :45 Nursing Note clindamycin 300mg PO, zofran 4mg ODT admin. toradol 60mg IM admin in R gluteus angeles. Discharge instructions revewied with pt-verbalized understanding. VS obtained, dc in good condition and ambulatory. 97-59-484840:00 Vital signs Type Value Date Respiration Rate 16breaths per minute : 00 Pulse 76beats per minute :00 Oxygen Saturation 100% :00 BP Systolic 140mmHg :00 BP Diastolic 79mmHg [...]
--- OUTSIDE RECORDS SUMMARY | 2020-01-18 15:35 | XMS REPORT | Referral Summary ---
Author Author [facility] Organization [facility] Address Unknown Phone Unavailable Care Team Providers Care Dry Wall Applicator Name Role Phone No PCP, Pt States PCP Encounter VC Date(s): 09/11/15 - 09/11/[address] [facility] [address] [place] [address] [phone] Discharge Diagnosis: Hidradenitis suppurativa Discharge Disposition: 01-Home or Self Care Attending Physician: Francis Melgar DO Admitting Physician: Francis Melgar DO Vital Signs Most recent to 1 oldest [Reference Range]: Temperature Oral 36.7 degC [35.8-37.3 degC] (09/11/15 1:52 AM) Peripheral Pulse 80 bpm Rate [60-100 bpm] (09/11/15 1:52 AM) Heart Rate Monitored 78 bpm [60-100 bpm] (09/11/15 3:28 AM) Respiratory Rate 16 br/min [14-20 br/min] (09/11/15 3:28 AM) Blood Pressure 103/78 mmHg [90-140/60-90 mmHg] (09/11/15 3:28 AM) Mean Arterial 86 mmHg Pressure, Cuff (09/11/15 3:28 AM) SpO2 100 % (09/11/15 3:28 AM) Problem List No data available for this section Allergies, Adverse Reactions, Alerts Substance Reaction Severity Status azithromycin Rash Active Bactrim Difficulty breathing Active Latex Rash Active Toradol Rash Active Medications No data available for this section Results No data available for this section Immunizations No data available for this section Procedures No data available for this section Social History Social History Type Response Smoking Status Current every day smoker Assessment and Plan No data available for this section
--- OUTSIDE RECORDS SUMMARY | 2020-01-18 15:35 | XMS REPORT ---
Author Author [facility] Medic al Staff, TOMY Rashid Organization [facility] Address [address], [place] [address] Phone [phone] Summary purpose TRANSITION OF CARE AUTO GENERATION [...] 98.0F :30 Height 63inches :55 Weight 233LB 13-86-185646:55 Social history Type Value Smoking Status CURRENT EVERY DAY SMOKER Treatment Plan No treatment plan text is available for this visit. Hospital discharge instructions Dismissal Condition good Disposition on DC home DC Inst/Educ Give yes Med/Side Effects Rev yes Flu Vac 2015
--- OUTSIDE RECORDS SUMMARY | 2020-01-18 15:35 | XMS REPORT | Referral Summary ---
Author Author [facility] Organization [facility] Address Unknown Phone Unavailable Care Team Providers Care Tinsmith Apprentice Name Role Phone Johnson Hicks PCP Encounter VC Date(s): 09/04/16 - 09/04/16 [facility] [address] [place] [address] Discharge Disposition: 01-Home or Self Care Attending Physician: Sascha Quevedo MD Admitting Physician: Sascha Quevedo MD Vital Signs Most recent to 1 oldest [Reference Range]: Temperature Skin 36.0 degC [36-37 degC] (09/04/16 4:44 PM) Peripheral Pulse 75 bpm Rate [60-100 bpm] (09/04/16 10:24 AM) Heart Rate Monitored 85 bpm [60-100 bpm] (09/04/16 4:44 PM) Respiratory Rate 20 br/min [14-20 br/min] (09/04/16 4:44 PM) Blood Pressure 115/80 mmHg [90-140/60-90 mmHg] (09/04/16 4:44 PM) SpO2 93 % (09/04/16 4:44 PM) Problem List Condition Effective Dates Status Health Status Informan t DVT (deep venous Active patient thrombosis)(Confirme d)1 Hydradenitis(Confirm Active patient ed) Cyst near Active patient tailbone(Confirmed)2 1POSS HX 2PYLONIDAL Allergies, Adverse Reactions, Alerts Substance Reaction Severity Status azithromycin Rash Active Bactrim Difficulty breathing Active Latex Rash Active Toradol Rash Active traMADol Active Medications Friend 7.5 mg-325 mg oral tablet 1 tabs, Oral, q6hr, Pain Severe (7-10), 0 Refill(s) Start Date: 09/04/16 Status: Ordered Results Hematology Most recent to 1 oldest [Reference Range]: WBC [4.8-10.8 9.3 10*3/uL 10*3/uL] (09/04/16 11:10 AM) RBC [4.00-5.20] 4.77 (09/04/16 11:10 AM) Hgb [12.0-16.0 13.9 gm/dL gm/dL] (09/04/16 11:10 AM) Hct [37.0-47.0 %] 40.7 % (09/04/16 11:10 AM) MCV [82.0-99.0 fL] 85.3 fL (09/04/16 11:10 AM) MCH [27.0-32.0 pg] 29.1 pg (09/04/16 11:10 AM) MCHC [32.0-36.0 34.2 gm/dL gm/dL] (09/04/16 11:10 AM) RDW [11.5-14.5 %] 12.7 % (09/04/16 11:10 AM) Platelet [150-400 263 10*3/uL 10*3/uL] (09/04/16 11:10 AM) MPV [9.4-12.4 fL] 9.5 fL (09/04/16 11:10 AM) Immature 0.2 % Granulocytes (09/04/16 11:10 AM) [0.0-1.0 %] Neutrophils [51-75 74 % %] (09/04/16 11:10 AM) Lymphocytes [20-46 19 % %] *LOW* (09/04/16 11:10 AM) Monocytes [4-11 %] 6 % (09/04/16 11:10 AM) Eosinophils [0-4 %] 1 % (09/04/16 11:10 AM) Basophils [0-2 %] 0 % (09/04/16 11:10 AM) Neutro Absolute 6.90 [1.90-7.00] (09/04/16 11:10 AM) Lymph Absolute 1.73 [0.80-3.30] (09/04/16 11:10 AM) Bee Absolute 0.54 [0.30-1.00] (09/04/16 11:10 AM) Eos Absolute 0.07 [0.00-0.50] (09/04/16 11:10 AM) Baso Absolute 0.02 [0.00-0.20] (09/04/16 11:10 AM) Nucleated RBC 0.0 /100 WBC Automated [0 /100 (09/04/16 11:10 AM) WBC] Coagulation Most recent to 1 oldest [Reference Range]: INR [0.9-1.2] 1.1 (09/04/16 11:10 AM) PTT [25.0-35.0 34.8 seconds seconds] (09/04/16 11:10 AM) Chemistry Most recent to 1 oldest [Reference Range]: Sodium Lvl [136-144 139 mEq/L mEq/L] (09/04/16 11:10 AM) Potassium Lvl 3.9 mEq/L [3.6-5.1 mEq/L] (09/04/16 11:10 AM) Chloride [99-109 104 mEq/L mEq/L] (09/04/16 11:10 AM) CO2 [22-32 mEq/L] 25 mEq/L (09/04/16 11:10 AM) AGAP [3-20] 10 (09/04/16 11:10 AM) BUN [4-20 mg/dL] 5 mg/dL (09/04/16 11:10 AM) Glucose Lvl [70-100 88 mg/dL mg/dL] (09/04/16 11:10 AM) Creatinine Lvl 0.56 mg/dL [0.44-1.03 mg/dL] (09/04/16 11:10 AM) eGFR [>60] >60 1 (09/04/16 11:10 AM) Calcium Lvl 9.3 mg/dL [8.6-10.0 mg/dL] (09/04/16 11:10 AM) 1Result Comment: Multiply eGFR results by 1.21 for race. Immunizations No data available for this section Procedures Procedure Date Related Diagnosis Body Site Selective catheter placement, arterial 09/04/16 system; each first order abdominal, pel sam, or lower extremity artery branch, withi n a vascular family.. Cyst1 Gallbladder Hydradenitis Hysterectomy 1PYLONIDAL Social History Social History Type Response Smoking Status Current every day smoker Assessment and Plan No data available for this section
--- OUTSIDE RECORDS SUMMARY | 2020-01-18 15:35 | XMS REPORT ---
Author Author Jeri Wooten [facility] Physicians oup Address [address] [place], [place] [id number] Care Team Providers Care Instructional Support Services Director Name Role Phone Justin Wooten PCP JUSTIN NAIK PreferredProvider Allergies and Adverse Reactions Name Reaction Notes tramadol Toradol Bactrim DS Zithromax Latex Ancef PENICILLINS Plan of Treatment Planned Activity Comments Planned Date Planned Time Plan/Goal MAWD 01/05/2020 12:00 AM Medications Active Name Start Date Estimated Completion Date SIG Co mments Hibiclens 4 % topical liquid 06/16/2019 apply life enrichment assistant ally as directed Norvasc 5 mg oral tablet 12/22/2019 02/20/2020 take 1 tablet (5 mg) by oral route once every 6 hrs prn pain [place] 5-325 mg oral tablet 12/22/2019 01/21/2020 take 1 tablet by oral route every 6 hours as needed for pain for 30 days Name Start Date Expiration Date SIG Comments estradiol 1 mg oral tablet 02/12/2018 02/07/2019 take 1 tablet (1 mg) by oral route once daily for 90 days rifampin 300 mg oral capsule 02/13/2018 02/23/2018 rober e 1 capsule by oral route 2 times a day for 10 days doxycycline hyclate 100 mg oral tablet 03/26/2018 8 take 1 tablet (100 mg) by oral route 2 times per day for 14 days Diflucan 150 mg oral tablet 04/10/2018 04/19/2018 take 1 tablet (150 mg) by oral route once for 3 days [place] 5-325 mg oral tablet 05/27/2018 06/06/2018 take 1 tablet by oral route every 4-6 hours as needed for pain for 10 days rifampin 300 mg oral capsule 07/15/2018 07/25/2018 rober e 1 capsule by oral route 2 times a day for 10 days prednisone 20 mg oral tablet 03/24/2019 04/05/2019 2X4 days 1X4 days 1/2X4 days Levaquin 500 mg oral tablet 04/21/2019 05/01/2019 take 1 tablet (500 mg) by oral route once daily for 10 days Vibramycin 100 mg oral capsule 06/16/2019 07/28/2019 t vitor 1 capsule (100 mg) by oral route 2 times per day for 14 days rifampin 300 mg oral capsule 09/30/2019 10/20/2019 rober e 1 capsule by oral route 2 times a day for 10 days doxycycline hyclate 100 mg oral tablet 09/30/2019 10/30/2019 take 1 tablet (100 mg) by oral route 2 times per day for 10 days Discontinued Name Start Date Discontinued Date SIG Comments lisinopril oral 06/11/2018 Lyrica oral 06/11/2018 estradiol 1 mg oral tablet 02/11/2018 Hibiclens 4 % topical liquid 01/30/2018 02/11/2018 apply life enrichment assistant ally as directed Diflucan 150 mg oral tablet 10/01/2018 01/31/2019 take 1 tablet (150 mg) by oral route once and one tablet in five days Flagyl 500 mg oral tablet 11/06/2018 01/06/2019 take 1 tablet by oral route twice a day for 7 days rifampin 300 mg oral capsule 07/07/2019 07/22/2019 rober e 1 capsule by oral route 2 times a day for 10 days [place] 5-325 mg oral tablet 08/27/2019 10/16/2019 take 1 tablet by oral route every 4-6 hours as needed for pain [place] 5-325 mg oral tablet 12/22/2019 12/22/2019 take 1 tablet by oral route everyday Problem List Description Status Onset Hidradenitis Suppurativa Active 01/21/2018 Other chronic pain Active 01/21/2018 Essential hypertension Active 01/21/2018 Class 2 severe obesity due to excess al[place] with serious comorbidity and body mass index (BMI) of 36.0 to 36.9 in adult Active 01/21/2018 Vital Signs Date Time BP-Sys(mm[Hg] BP-Monica(mm[Hg]) HR(bpm) RR(rpm) Temp WT HT HC BMI BSA BMI Percentile O2 Sat(%) 01/05/2020 11:55:00 AM 16 rpm 98.4 F 240 lbs 67 in 37.5889 kg/m2 2.2685 m2 12/22/2019 11:59:00 AM 120 mm[Hg] 70 mm[Hg] 82 {beats}/min 16 rpm 97.3 F 240 lbs 67 in 37.59 kg/m2 2.27 m2 99 % 12/15/2019 3:06:00 PM 136 mm[Hg] 84 mm[Hg] 130 {beats}/min 97.3 F 238.375 lbs 67 in 37.3344 kg/m2 2.2608 m2 98 % 12/12/2019 1:20:00 PM 132 mm[Hg] 76 mm[Hg] 96 {beats}/min 97.3 F 238 lbs 67 in 37.28 kg/m2 2.26 m2 99 % 12/10/2019 2:24:00 PM 150 mm[Hg] 80 mm[Hg] 75 {beats}/min 16 rpm 97.9 F 239 lbs 67 in 37.43 kg/m2 2.26 m2 98 % 11/20/2019 9:18:00 AM 122 mm[Hg] 84 mm[Hg] 103 {beats}/min 16 rpm 98.1 F 283.437 lbs 98 % 08/04/2019 11:39:00 AM 136 mm[Hg] 100 mm[Hg] 110 {beats}/min 20 rpm 97.9 F 231 lbs 65 in 38.44 kg/m2 2.1921 m2 98 % 07/22/2019 10:39:00 AM 160 mm[Hg] 100 mm[Hg] 87 {beats}/min 20 rpm 98.1 F 230 lbs 65 in 38.27 kg/m2 2.19 m2 100 % 07/14/2019 10:48:00 AM 150 mm[Hg] 108 mm[Hg] 82 {beats}/min 20 rpm 97.9 F 228 lbs 65 in 37.9408 kg/m2 2.1778 m2 100 % 04/21/2019 4:02:00 PM 122 mm[Hg] 84 mm[Hg] 88 {beats}/min 16 rpm 98.4 F 223 lbs 98 % 04/02/2019 4:42:00 PM 160 mm[Hg] 96 mm[Hg] 108 {beats}/min 20 rpm 98.1 F 222 lbs 65 in 36.9424 kg/m2 2.149 m2 98 % 03/24/2019 3:03:00 PM 125 mm[Hg] 88 mm[Hg] 90 {beats}/min 16 rpm 98.4 F 229 lbs 98 % 02/24/2019 1:07:00 PM 130 mm[Hg] 80 mm[Hg] 88 {beats}/min 98.1 F 22 3 lbs 65 in 37.1088 kg/m2 2.1538 m2 100 % 01/21/2019 1:38:00 PM 150 mm[Hg] 100 mm[Hg] 78 {beats}/min 18 rpm 98.2 F 230 lbs 65 in 38.27 kg/m2 2.19 m2 98 % 10/31/2018 11:44:00 AM 130 mm[Hg] 84 mm[Hg] 86 {beats}/min 18 rpm 98.2 F 236 lbs 65 in 39.2721 kg/m2 2.2157 m2 99 % 10/29/2018 2:33:00 PM 160 mm[Hg] 100 mm[Hg] 96 {beats}/min 20 rpm 98.4 F 235 lbs 65 in 39.11 kg/m2 2.21 m2 99 % 09/25/2018 12:01:00 PM 158 mm[Hg] 110 mm[Hg] 90 {beats}/min 20 rpm 97.7 F 240 lbs 65 in 39.9377 kg/m2 2.2344 m2 97 % 08/06/2018 1:54:00 PM 130 mm[Hg] 96 mm[Hg] 99 {beats}/min 20 rpm 97.7 F 241 lbs 65 in 40.10 kg/m2 2.24 m2 98 % 07/24/2018 7:49:00 AM 184 mm[Hg] 110 mm[Hg] 108 {beats}/min 20 rpm 98.6 F 243 lbs 65 in 40.4369 kg/m2 2.2483 m2 99 % 07/16/2018 9:09:00 AM 160 mm[Hg] 86 mm[Hg] 107 {beats}/min 20 rpm 98.1 F 241 lbs 65 in 40.10 kg/m2 2.24 m2 99 % 07/03/2018 11:47:00 AM 116 mm[Hg] 80 mm[Hg] 81 {beats}/min 16 rpm 97.9 F 241 lbs 65 in 40.1041 kg/m2 2.2391 m2 98 % 06/24/2018 1:44:00 PM 132 mm[Hg] 92 mm[Hg] 91 {beats}/min 16 rpm 97.9 F 235 lbs 65 in 39.11 kg/m2 2.21 m2 99 % 06/11/2018 10:06:00 AM 136 mm[Hg] 110 mm[Hg] 85 {beats}/min 24 rpm 97.7 F 239 lbs 65 in 39.7713 kg/m2 2.2297 m2 99 % 06/11/2018 10:06:00 AM 136 mm[Hg] 104 mm[Hg] 06/04/2018 9:06:00 AM 162 mm[Hg] 102 mm[Hg] 90 {beats}/min 18 rpm 98.4 F 236 lbs 65 in 39.27 kg/m2 2.22 m2 98 % 05/27/2018 2:22:00 PM 164 mm[Hg] 110 mm[Hg] 98 {beats}/min 16 rpm 97.7 F 239 lbs 66 in 38.5752 kg/m2 2.2468 m2 99 % 05/22/2018 5:02:00 PM 124 mm[Hg] 94 mm[Hg] 83 {beats}/min 16 rpm 98.6 F 99 % 04/23/2018 2:51:00 PM 128 mm[Hg] 74 mm[Hg] 90 {beats}/min 18 rpm 97.9 F 237 lbs 98 % 04/16/2018 9:21:00 AM 112 mm[Hg] 64 mm[Hg] 68 {beats}/min 18 rpm 98.4 F 244 lbs 98 % 04/08/2018 2:20:00 PM 152 mm[Hg] 100 mm[Hg] 82 {beats}/min 16 rpm 98.1 F 239 lbs 66 in 38.5752 kg/m2 2.2468 m2 99 % 04/02/2018 3:36:00 PM 140 mm[Hg] 110 mm[Hg] 92 {beats}/min 20 rpm 97.7 F 241 lbs 66 in 38.90 kg/m2 2.26 m2 99 % 03/26/2018 9:22:00 AM 144 mm[Hg] 106 mm[Hg] 87 {beats}/min 20 rpm 98.2 F 235 lbs 66 in 37.9296 kg/m2 2.2279 m2 99 % 03/12/2018 10:31:00 AM 140 mm[Hg] 84 mm[Hg] 80 {beats}/min 16 rpm 97.9 F 235 lbs 66 in 37.93 kg/m2 2.23 m2 100 % 03/05/2018 9:29:00 AM 136 mm[Hg] 104 mm[Hg] 79 {beats}/min 20 rpm 97.7 F 235 lbs 66 in 37.9296 kg/m2 2.2279 m2 98 % 02/27/2018 3:28:00 PM 150 mm[Hg] 108 mm[Hg] 95 {beats}/min 16 rpm 97 F 231 lbs 66 in 37.28 kg/m2 2.21 m2 98 % 02/13/2018 2:05:00 PM 138 mm[Hg] 94 mm[Hg] 90 {beats}/min 16 rpm 98.6 F 231 lbs 66 in 37.284 kg/m2 2.2089 m2 98 % 02/11/2018 2:50:00 PM 120 mm[Hg] 70 mm[Hg] 76 {beats}/min 98.1 F 231 lbs 66 in 37.28 kg/m2 2.21 m2 01/18/2018 10:04:00 AM 148 mm[Hg] 88 mm[Hg] 80 {beats}/min 18 rpm 98.2 F 225 lbs 66 in 36.3156 kg/m2 2.18 m2 98 % Social History Name Description Comments Tobacco Current every day smoker Alcohol Never Uses seatbelts History of Procedures Date Ordered Description Order Status 02/12/2018 12:00 AM CYTOPATH C/V THIN LAYER Reviewed 02/12/2018 12:00 AM SPECIMEN HANDLING OFFICE-LAB Reviewed 02/12/2018 12:00 AM N.GONORRHOEAE DNA AMP PROB Reviewed 02/12/2018 12:00 AM CHLAMYDIA CULTURE Reviewed 02/12/2018 12:00 AM DETECT AGENT NOS DNA AMP Reviewed 02/12/2018 12:00 AM TRICHOMONAS VAGINALIS AMPLIF Reviewed 04/16/2018 12:00 AM Wrist Splint Reviewed 10/31/2018 12:00 PM URINALYSIS AUTO W/O SCOPE Reviewed 10/31/2018 12:00 AM URINE BACTERIA CULTURE Returned 02/24/2019 12:00 AM NRV CNDJ TEST 9-10 STUDIES Reviewed 02/24/2019 12:00 AM MUSC TEST DONE W/N TEST COMP Reviewed 03/24/2019 12:00 AM Decadron 8mg Injection Reviewed 03/24/2019 12:00 AM Depo-Medrol 80mg Injection Reviewed 03/24/2019 12:00 AM THER/PROPH/DIAG INJ SC/IM Reviewed 12/29/2019 12:00 AM NRV CNDJ TEST 9-10 STUDIES Reviewed 12/29/2019 12:00 AM MUSC TEST DONE W/N TEST COMP Reviewed Results Summary Date and Description Results 10/31/2018 12:00 PM Glucose Ur-sCnc neg Bilirub Ur Ql neg Ketones Ur Ql Strip neg Sp Gr Ur Qn 1.020 Hgb Ur Ql Strip small pH Ur-LsCnc 6.0 Prot Ur Ql Strip 30 Urobilinogen Ur-mCnc 0.2 Nitrite Ur Ql Strip neg WBC # Ur small History Of Immunizations Name Date Admin Mfg Name Mfg Code Trade Name Lot# Route Inj Vis Given Vis Pub CVX Influenza 05/01/2019 Not Entered NE FLUVIRIN-PRESERVATIVE FREE Not Entered Not Entered 05/01/2019 07/09/2019 150 History of Past Illness Name Date of Onset Comments Anxiety Hypertension Chronic pain Hidradenitis Suppurativa 01/21/2018 Other chronic pain 01/21/2018 Essential hypertension 01/21/2018 Class 2 severe obesity due to excess [place] with serious comorbidity and body mass index (BMI) of 36.0 to 36.9 in adult 01/21/2018 Other chronic pain Jan 18 2018 10:04AM Morbid (severe) obesity due to excess calories Jan 18 2018 1 0:04AM Body mass index (BMI) 36.0-36.9, adult Jan 18 2018 10:04AM Dietary Counseling Jan 18 2018 10:04AM Exercise Counseling Jan 18 2018 10:04AM Severe Chronic Recurrent Hidradenitis Suppurativa Jan 18 201 8 10:04AM Medication management Jan 18 2018 10:04AM Essential hypertension Jan 18 2018 10:04AM Abscess Jan 30 2018 1:46PM Encounter for annual routine gynecological examination Feb 11 2018 2:58PM Obesity Feb 11 2018 2:58PM Abscess Of Upper Arm Feb 13 2018 2:06PM Hidradenitis suppurativa of left axilla Feb 13 2018 2:06PM Hidradenitis Suppurativa Feb 19 2018 7:57AM Postoperative Follow-up Feb 27 2018 3:28PM Postoperative Follow-up Mar 12 2018 10:31AM Postoperative Follow-up Apr 02 2018 3:37PM Carpal tunnel syndrome of left wrist Apr 16 2018 9:22AM Left wrist pain Apr 16 2018 9:22AM Hidradenitis suppurativa Apr 23 2018 2:51PM Pain management Apr 23 2018 2:51PM Essential hypertension Apr 23 2018 2:51PM Postoperative Follow-up Mar 05 2018 9:29AM Abscess of chest wall May 22 2018 5:03PM Cellulitis of unspecified part of limb May 22 2018 5:03PM Cutaneous abscess of limb, unspecified May 22 2018 5:03PM Abscess Of Leg May 27 2018 2:22PM Abscess Of Trunk May 27 2018 2:22PM Postoperative Follow-up Apr 08 2018 2:20PM Postoperative Follow-up Mar 26 2018 9:23AM Essential hypertension Jun 04 2018 9:07AM Medication management Jun 04 2018 9:07AM Abscess Of Leg Jun 11 2018 10:07AM Hidradenitis Suppurativa Jun 19 2018 2:51PM Postoperative Follow-up Jun 24 2018 1:44PM Postoperative Follow-up Jul 03 2018 11:47AM Postoperative Follow-up Jul 16 2018 9:09AM Other injury of unspecified body region, initial encounter J an 2018 9:09AM Local infection of the skin and subcutaneous tissue, u nspecified Jul 16 2018 9:09AM Postoperative Follow-up Aug 06 2018 1:55PM Cellulitis of unspecified part of limb Aug 06 2018 1:55PM Cutaneous abscess of limb, unspecified Aug 06 2018 1:55PM Abscess Of Upper Arm Jul 24 2018 7:50AM Abscess Of Leg Oct 30 2018 10:37AM Abscess Of Trunk Oct 30 2018 10:37AM High risk sexual behavior Oct 31 2018 11:49AM Vaginal discharge Oct 31 2018 11:49AM Trichomonas infection Oct 31 2018 11:49AM Lipoma of back Sep 25 2018 12:02PM Abscess of abdominal wall Oct 29 2018 2:33PM Cellulitis of unspecified part of limb Oct 29 2018 2:33PM Cutaneous abscess of limb, unspecified Oct 29 2018 2:33PM Severe Chronic Recurrent Hidradenitis Jan 21 2019 1:39PM Pain management Jan 21 2019 1:39PM Abscess Of Leg Jan 06 2019 11:22AM Pain management contract discussed Jan 21 2019 1:39PM Carpal tunnel syndrome of right wrist Feb 24 2019 1:06PM Wrist pain, acute, right Mar 24 2019 3:04PM History of drug abuse Mar 24 2019 3:04PM Moderate Acute Right Wrist tendonitis Unresponsive to treatment Mar 24 2019 3:04PM Pain management Mar 24 2019 3:04PM Chest congestion Apr 21 2019 4:02PM Sinus pressure Apr 21 2019 4:02PM Nasal congestion with rhinorrhea Apr 21 2019 4:02PM Upper respiratory tract infection, unspecified type Apr 21 2 019 4:02PM Cellulitis of groin Apr 21 2019 4:02PM Hidradenitis suppurativa Apr 21 2019 4:02PM Other chronic pain Apr 21 2019 4:02PM Pain management Apr 21 2019 4:02PM Abscess Of Leg Apr 02 2019 4:42PM Abscess Jun 16 2019 3:41PM Cellulitis and Abscess of the Trunk Jul 14 2019 10:48AM Cellulitis of unspecified part of limb Jul 14 2019 10:48AM Cutaneous abscess of limb, unspecified Jul 14 2019 10:48AM Postoperative Follow-up Jul 22 2019 10:39AM Postoperative Follow-up Aug 04 2019 11:40AM Postoperative Follow-up Aug 11 2019 10:38AM Wound dehiscence Aug 11 2019 10:38AM Abscess Of Leg Aug 27 2019 10:36AM Abscess Of Leg Aug 20 2019 11:54AM Cellulitis of trunk, unspecified Aug 20 2019 11:54AM Cutaneous abscess of trunk, unspecified Aug 20 2019 11:54AM Sebaceous cyst Oct 14 2019 2:42PM Left wrist pain Nov 20 2019 9:22AM Hidradenitis Suppurativa Dec 10 2019 2:25PM Carpal tunnel syndrome of left wrist Dec 12 2019 1:23PM Hidradenitis Suppurativa Dec 22 2019 12:03PM Carpal tunnel syndrome of left wrist Dec 15 2019 3:06PM Pre-op testing Jan 05 2020 11:08AM Hidradenitis Suppurativa Jan 05 2020 11:55AM Payers Insurance Name Company Name Plan Name Plan Number Policy Number Trey cy Group Number Start Date [facility] [id number] N/A [facility] [id number] N/A [facility] Nicky tance Prog [id number] N/A [facility] Nicky tance Prog [id number] N/A [employer] - RHC - Community Plan of [facility] ealthCare RHC Comm [id number] N/A History of Encounters Visit Date Visit Type Provider 01/05/2020 Office visit Justin Wooten MD 12/22/2019 Office visit Justin Wooten MD 12/15/2019 Procedures Elio Julien DO 12/12/2019 Office visit Elio Julien DO 12/10/2019 Procedures Justin Wooten MD 11/20/2019 Office visit JUSTIN MCGILL 10/14/2019 Procedures Justin Wooten MD 08/27/2019 Office visit Justin Wooten MD 08/20/2019 Office visit Justin Wooten MD 08/04/2019 Office visit Justin Wooten MD 07/28/2019 Office visit Justin Wooten MD 07/22/2019 Office visit Justin Wooten MD 07/17/2019 Surgery Justin Wooten MD 07/14/2019 Office visit Justin Wooten MD 06/16/2019 Procedures Justin Wooten MD 04/21/2019 Office visit JUSTIN MCGLIL 04/02/2019 Procedures Justin Wooten MD 03/24/2019 Office visit JUSTIN MCGILL 02/24/2019 Procedures Eliotyron Solorzanoa DO 01/21/2019 Office visit JUSTIN MCGILL 01/06/2019 Procedures Justin Wooten MD 10/31/2018 Office visit Hira QUINONES 10/30/2018 Procedures Justin Wooten MD 10/29/2018 Office visit Justin Wooten MD 09/25/2018 Procedures Justin Wooten MD 08/06/2018 Office visit Justin Wooten MD 07/23/2018 Office visit Justin Wooten MD 07/18/2018 Surgery Justin Wooten MD 07/15/2018 Office visit Justin Wooten MD 07/11/2018 Surgery Justin Wooten MD 07/03/2018 Office visit Justin Wooten MD 06/24/2018 Office visit Justin Wooten MD 06/20/2018 Surgery Justin Wooten MD 06/11/2018 Office visit Justin Wooten MD 06/04/2018 Office visit JUSTIN MCGILL 05/27/2018 Office visit Justin Wooten MD 05/23/2018 Surgery Justin Wooten MD 05/22/2018 Office visit Justin Wooten MD 04/23/2018 Office visit JUSTIN MCGILL 04/16/2018 Office visit JUSTIN MCGILL 04/08/2018 Office visit Justin Wooten MD 04/02/2018 Office visit Justin Wooten MD 03/26/2018 Procedures Justin Wooten MD 03/14/2018 Surgery Justin Wooten MD 03/12/2018 Office visit Justin Wooten MD 03/05/2018 Office visit Justin Wooten MD 02/27/2018 Office visit Justin Wooten MD 02/21/2018 Surgery Justin Wooten MD 02/13/2018 Office visit Justin Wooten MD 02/11/2018 Office visit Emma collier APRN 01/30/2018 Procedures Justin Wooten MD 01/18/2018 Office visit JUSTIN MCGILL 08/29/2013 [facility] Keesha Ojeda MD
--- OUTSIDE RECORDS SUMMARY | 2020-01-18 15:35 | XMS REPORT ---
Author Author Jeri Wooten [facility] Physicians oup Address [address] [place], [place] [address] Care Team Providers Care Cinder Snapper Name Role Phone Justin Wooten PCP JUSTIN NAIK PreferredProvider Allergies and Adverse Reactions Name Reaction Notes tramadol Toradol Bactrim DS Zithromax Latex Ancef PENICILLINS Plan of Treatment Planned Activity Comments Planned Date Planned Time Plan/Goal MAWD 01/05/2020 12:00 AM Medications Active Name Start Date Estimated Completion Date SIG Co mments Hibiclens 4 % topical liquid 06/16/2019 apply defective cigarette slitter ally as directed Norvasc 5 mg oral tablet 12/22/2019 02/20/2020 take 1 tablet (5 mg) by oral route once every 6 hrs prn pain [place] 5-325 mg oral tablet 12/22/2019 01/21/2020 take [...] by oral route once for 3 days [place] 5-325 mg oral tablet 05/27/2018 06/06/2018 take [...] 4 % topical liquid 01/30/2018 02/11/2018 apply defective cigarette slitter ally as directed Diflucan 150 mg oral [...] 2 times a day for 10 days [place] 5-325 mg oral tablet 08/27/2019 10/16/2019 take 1 tablet by oral route every 4-6 hours as needed for pain [place] 5-325 mg oral tablet 12/22/2019 12/22/2019 take [...] HC BMI BSA BMI Percentile O2 Sat(%) 12/22/2019 11:59:00 AM 120 mm[Hg] 70 mm[Hg] 82 {beats}/min 16 rpm 97.3 F 240 lbs 67 in 37.5889 kg/m2 2.2685 m2 99 % 12/15/2019 3:06:00 PM 136 mm[Hg] 84 mm[Hg] 130 {beats}/min 97.3 F 238.375 lbs 67 in 37.33 kg/m2 2.26 m2 98 % 12/12/2019 1:20:00 PM 132 mm[Hg] 76 mm[Hg] 96 {beats}/min 97.3 F 238 lbs 67 in 37.2757 kg/m2 2.259 m2 99 % 12/10/2019 2:24:00 PM 150 [...] 3:06PM Pre-op testing Jan 05 2020 11:08AM Payers Insurance Name Company Name Plan Name Plan Number Policy Number Trey Group [facility] [id number] N/A [place] Defective Cigarette Slitter Prog - RHC [facility] Asst Prog - RH C [id number] N/A [place] Medical [facility] Medical Nicky tance Prog [id number] N/A [place] Medical [facility] Medical Nicky tance Prog [id number] N/A [facility] ealthCare [facility] Comm [id number] N/A History of Encounters Visit Date Visit [...] Justin Wooten MD 04/21/2019 Office visit JUSTIN MCGILL 04/02/2019 Procedures Justin Wooten MD 03/24/2019 Office visit JUSTIN MCGILL 02/24/2019 Procedures Elio Julien DO 01/21/2019 Office visit JUSTIN MCGILL 01/06/2019 [...] MD 01/18/2018 Office visit JUSTIN MCGILL 08/29/2013 [facility] Keesha Ojeda MD
--- OUTSIDE RECORDS SUMMARY | 2020-01-18 15:35 | XMS REPORT | Referral Summary ---
Author Author [facility] Organization [facility] Address Unknown Phone Unavailable Care Team Providers Care Staff Developer Name Role Phone Johnson Hicks PCP Encounter [facility] [id number] Date(s): 08/30/16 - 08/30/16 [facility] [address] [place] [address] [phone] Discharge Disposition: 01-Home or Self Care Attending Physician: Sascha Quevedo MD Admitting Physician: Sascha Quevedo MD Vital Signs No data available for this section Problem List No data available for this [...]
--- OUTSIDE RECORDS SUMMARY | 2020-01-18 15:36 | XMS REPORT ---
Author Author Jeri Wooten [facility] Phys[facility]up Address [address] [place], [place] [address] Care Team Providers Care Process Safety Engineering Technologist Name Role Phone Justin Wooten PCP JUSTIN NAIK PreferredProvider Allergies and Adverse Reactions Name Reaction Notes tramadol Toradol Bactrim DS Zithromax Latex Ancef PENICILLINS Plan of Treatment Planned Activity Comments Planned Date Planned Time Plan/Goal Nerve conduction studies; 9-10 studies 12/29/2019 12 :00 AM Needle Electromyography, each extremity, complete 12/28 12:00 AM Medications Active Name Start Date Estimated Completion Date SIG Co mments Hibiclens 4 % topical liquid 06/16/2019 apply blackener ally as directed Norvasc 5 mg oral tablet 12/22/2019 02/20/2020 take 1 tablet (5 mg) by oral route once every 6 hrs prn pain [place] 5-325 mg oral tablet 12/22/2019 01/21/2020 take [...] by oral route once for 3 days [place] 5-325 mg oral tablet 05/27/2018 06/06/2018 take [...] 4 % topical liquid 01/30/2018 02/11/2018 apply blackener ally as directed Diflucan 150 mg oral [...] 2 times a day for 10 days [place] 5-325 mg oral tablet 08/27/2019 10/16/2019 take 1 tablet by oral route every 4-6 hours as needed for pain [place] 5-325 mg oral tablet 12/22/2019 12/22/2019 take [...] 03/24/2019 12:00 AM THER/PROPH/DIAG INJ SC/IM Reviewed Results Summary Date and Description Results [...] of left wrist Dec 15 2019 3:06PM Payers Insurance Name Company Name Plan Name Plan Number Policy Number Trey cy Group Number [facility] [id number] N/A [place] [employer] Technician Prog - [facility] Asst Prog - [facility] [id number] N/A [place] Medical Assistance [facility] Nicky tance Prog [id number] N/A [place] Medical [facility] Nicky tance Prog [id number] N/A [facility] [id number] N/A History of Encounters Visit Date Visit Type Provider 12/22/2019 Office visit Justin Wooten MD 12/15/2019 [...] Justin Wooten MD 10/31/2018 Office visit Hira OLIVAN 10/30/2018 Procedures Justin Wooten MD 10/29/2018 Office [...] Justin Wooten MD 04/02/2018 Office visit Justin Wooetn MD 03/26/2018 Procedures Justin Wooten MD 03/14/2018 Surgery Justin Wooten MD 03/12/2018 Office visit Justin Wooten MD 03/05/2018 Office visit Justin Wooten MD 02/27/2018 Office visit Justin Wooten MD 02/21/2018 Surgery Justin Wooten MD 02/13/2018 Office visit Justin Wooten MD 02/11/2018 Office visit Emma collier APRN 01/30/2018 Procedures Justin Wooten MD 01/18/2018 Office visit JUSTIN MCGILL 08/29/2013 [facility] Alisa Ojeda MD
--- OUTSIDE RECORDS SUMMARY | 2020-01-18 15:36 | XMS REPORT ---
Author Author Jeri Julien [facility] Address [address] [place], [place] [address] Care Team Providers Care Gatekeeper Name Role Phone Elio Julien PCP JUSTIN NAIK PreferredProvider Allergies and Adverse Reactions Name Reaction Notes tramadol Toradol Bactrim DS Zithromax Latex Ancef PENICILLINS Plan of Treatment Not available. Medications Active Name Start Date Estimated Completion Date SIG Co mments Hibiclens 4 % topical liquid 06/16/2019 apply desk maker ally as directed Name Start Date Expiration Date SIG Comments [...] by oral route once for 3 days [place] 5-325 mg oral tablet 05/27/2018 06/06/2018 take 1 tablet by oral route every 4-6 hours as needed for pain for 10 days rifampin 300 mg oral capsule 07/15/2018 07/25/2018 rober e 1 capsule by oral route 2 times a day for 10 days Norvasc 5 mg oral tablet 01/21/2019 03/22/2019 take 1 tablet (5 mg) by oral route once daily for 30 days prednisone 20 mg oral tablet 03/24/2019 [...] 4 % topical liquid 01/30/2018 02/11/2018 apply desk maker ally as directed Diflucan 150 mg oral [...] 2 times a day for 10 days [place] 5-325 mg oral tablet 08/27/2019 10/16/2019 take 1 tablet by oral route every 4-6 hours as needed for pain Problem List Description Status Onset Hidradenitis Suppurativa Active 01/21/2018 Other chronic pain Active 01/21/2018 Essential hypertension Active 01/21/2018 Class 2 severe obesity due to excess alta ories with serious comorbidity and body mass index (BMI) of 36.0 to 36.9 in adult Active 01/21/2018 Vital Signs Date Time BP-Sys(mm[Hg] BP-Monica(mm[Hg]) HR(bpm) RR(rpm) Temp WT HT HC BMI BSA BMI Percentile O2 Sat(%) 12/15/2019 3:06:00 PM 136 mm[Hg] 84 mm[Hg] [...] of left wrist Dec 12 2019 1:23PM Payers Insurance Name Company Name Plan Name Plan Number Policy Number Trey cy Group Number [facility] Plan of [id number] N/A [place] 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 ealthCare [facility] Comm [id number] N/A History of Encounters Visit Date Visit Type Provider 12/15/2019 Procedures Elio Julien DO 12/12/2019 Office [...] Justin Wooten MD 10/31/2018 Office visit Hira Jennings PRN 10/30/2018 Procedures Justin Wooten MD 10/29/2018 Office [...] Wooten MD 02/11/2018 Office visit Emma collier AIRPORT SKILLED MAINTENANCE SUPERVISOR 01/30/2018 Procedures Justin Wooten MD 01/18/2018 Office visit JUSTIN MCGILL 08/29/2013 [facility] Keesha Ojeda MD
--- OUTSIDE RECORDS SUMMARY | 2020-01-18 15:36 | XMS REPORT ---
Author Author Jeri Wooten [facility] Address [address] [place], [place] [address] Care Team Providers Care Middle [employer] Science Teacher Name Role Phone Justin Wooten PCP JUSTIN NAIK PreferredProvider Allergies and Adverse Reactions Name Reaction Notes tramadol Toradol Bactrim DS Zithromax Latex Ancef PENICILLINS Plan of Treatment Not available. Medications Active Name Start Date Estimated Completion Date SIG Co mments Hibiclens 4 % topical liquid 06/16/2019 apply secondary connector armature ally as directed Norvasc 5 mg oral tablet 12/22/2019 02/20/2020 take 1 tablet (5 mg) by oral route once every 6 hrs prn pain [place] 5-325 mg oral tablet 12/22/2019 01/21/2020 take [...] by oral route once for 3 days [place] 5-325 mg oral tablet 05/27/2018 06/06/2018 take [...] 4 % topical liquid 01/30/2018 02/11/2018 apply secondary connector armature ally as directed Diflucan 150 mg oral [...] 2 times a day for 10 days [place] 5-325 mg oral tablet 08/27/2019 10/16/2019 take 1 tablet by oral route every 4-6 hours as needed for pain [place] 5-325 mg oral tablet 12/22/2019 12/22/2019 take [...] 1:23PM Hidradenitis Suppurativa Dec 22 2019 12:03PM Payers Insurance Name Company Name Plan Name Plan Number Policy Number Trey cy Group Number [facility] Plan of [id number] N/A [place] Electronic Security Technician Prog - [facility] Asst Pro - [facility] [id number] N/A [place] Medical Assistance [facility] Medical Nicky tance Prog [id number] N/A [place] Medical Assistance [facility] Medical Nicky tance Prog [id number] N/A [facility] ealthCare [facility] Comm [id number] N/A History of Encounters Visit Date Visit [...] Office visit JUSTIN MCGILL 04/02/2019 Procedures Justin Wootne MD 03/24/2019 Office visit JUSTIN MCGILL 02/24/2019 Procedures Eliotyron Julien DO 01/21/2019 Office visit JUSTIN MCGILL [...] Wooten MD 02/11/2018 Office visit Emma collier INDUSTRIAL MECHANIC 01/30/2018 Procedures Justin Wooten MD 01/18/2018 Office visit JUSTIN MCGILL 08/29/2013 [facility] Alisa Ojeda MD
--- OUTSIDE RECORDS SUMMARY | 2020-01-18 15:36 | XMS REPORT ---
Author Author Jeri Wooten [facility] Address [address] [place], [place] [address] Care Team Providers Care Supervisor Esters And Emulsifiers Name Role Phone Justin Wooten PCP JUSTIN NAIK PreferredProvider Allergies and Adverse Reactions Name Reaction Notes tramadol Toradol Bactrim DS Zithromax Latex Ancef PENICILLINS Plan of Treatment Not available. Medications Active Name Start Date Estimated Completion Date SIG Co mments Hibiclens 4 % topical liquid 06/16/2019 apply beer cooler ally as directed Norvasc 5 mg oral tablet 12/22/2019 02/20/2020 take 1 tablet (5 mg) by oral route once every 6 hrs prn pain [place] 5-325 mg oral tablet 12/22/2019 01/21/2020 take [...] by oral route once for 3 days [place] 5-325 mg oral tablet 05/27/2018 06/06/2018 take [...] 4 % topical liquid 01/30/2018 02/11/2018 apply beer cooler ally as directed Diflucan 150 mg oral [...] 2 times a day for 10 days [place] 5-325 mg oral tablet 08/27/2019 10/16/2019 take 1 tablet by oral route every 4-6 hours as needed for pain [place] 5-325 mg oral tablet 12/22/2019 12/22/2019 take [...] Number Trey cy Group Number [facility] Plan of [id number] N/A [place] Reading Interventionist Prog [facility] [id number] N/A [place] Medical Assistance [facility] Medical Nicky tance Prog [id number] N/A [place] Medical Assistance [facility] Medical Nicky tance Prog [id number] N/A [facility] Comm [id number] N/A History of Encounters Visit Date Visit [...] MD 01/18/2018 Office visit JUSTIN MCGILL 08/29/2013 [facility] Alisa Ojeda MD
--- OUTSIDE RECORDS SUMMARY | 2020-01-18 15:37 | XMS REPORT ---
Author Author Jeri Wooten [facility] Address [address] [place], [place] [id number] Care Team Providers Care Buyer Tobacco Head Name Role Phone Justin Wooten PCP JUSTIN NAIK PreferredProvider Allergies and Adverse Reactions Name Reaction Notes tramadol Toradol Bactrim DS Zithromax Latex Ancef PENICILLINS Plan of Treatment Not available. Medications Active Name Start Date Estimated Completion Date SIG Co mments Hibiclens 4 % topical liquid 06/16/2019 apply hogshead mat inspector ally as directed [place] 5-325 mg oral tablet 08/27/2019 take 1 tablet by oral route every 4-6 hours as needed for pain rifampin 300 mg oral capsule 09/30/2019 10/20/2019 rober e 1 capsule by oral route 2 times a day for 10 days doxycycline hyclate 100 mg oral tablet 09/30/2019 10/30/2019 take 1 tablet (100 mg) by oral route 2 times per day for 10 days Name Start Date Expiration Date SIG [...] by oral route once for 3 days [place] 5-325 mg oral tablet 05/27/2018 06/06/2018 take [...] 2 times per day for 14 days Discontinued Name Start Date Discontinued Date SIG Comments lisinopril oral 06/11/2018 Lyrica oral 06/11/2018 estradiol 1 mg oral tablet 02/11/2018 Hibiclens 4 % topical liquid 01/30/2018 02/11/2018 apply hogshead mat inspector ally as directed Diflucan 150 mg oral [...] 2 times a day for 10 days Problem List Description Status Onset Hidradenitis Suppurativa Active 01/21/2018 Other chronic pain Active 01/21/2018 Essential hypertension Active 01/21/2018 Class 2 severe obesity due to excess alta ories with serious comorbidity and body mass index (BMI) of 36.0 to 36.9 in adult Active 01/21/2018 Vital Signs Date Time BP-Sys(mm[Hg] BP-Monica(mm[Hg]) HR(bpm) RR(rpm) Temp WT HT HC BMI BSA BMI Percentile O2 Sat(%) 08/04/2019 11:39:00 AM 136 mm[Hg] 100 mm[Hg] [...] rpm 97.9 F 235 lbs 65 in 39.1056 kg/m2 2.21 m2 99 % 06/11/2018 10:06:00 AM 136 mm[Hg] 110 mm[Hg] 85 {beats}/min 24 rpm 97.7 F 239 lbs 65 in 39.77 kg/m2 2.2297 m2 99 % 06/11/2018 10:06:00 AM 136 mm[Hg] 104 mm[Hg] 06/04/2018 9:06:00 AM 162 mm[Hg] 102 mm[Hg] 90 {beats}/min 18 rpm 98.4 F 236 lbs 65 in 39.2721 kg/m2 2.22 m2 98 % 05/27/2018 2:22:00 PM 164 mm[Hg] 110 mm[Hg] 98 {beats}/min 16 rpm 97.7 F 239 lbs 66 in 38.58 kg/m2 2.2468 m2 99 % 05/22/2018 5:02:00 [...] of trunk, unspecified Aug 20 2019 11:54AM Payers Insurance Name Company Name Plan Name Plan Number Policy Number Trey cy Group Number Start Date [place] Spa Therapist Prog - RHC [place] Spa Therapist Prog - C [id number] N/A [place] Medical Assistance [facility] Medical Nicky tance Prog [id number] N/A [place] Medical Assistance [facility] Medical Nicky tance Prog [id number] N/A [facility] Comm [id number] N/A [facility] [place] [facility] e Comm Plan of [id number] N/A History of Encounters Visit Date Visit Type Provider 08/27/2019 Office visit Justin Wooten MD 08/20/2019 [...] Justin Wooten MD 06/24/2018 Office visit Justin Wootne MD 06/20/2018 Surgery Justin Wooten MD 06/11/2018 [...] MD 01/18/2018 Office visit JUSTIN MCGILL 08/29/2013 [facility] Keesha Ojeda MD
--- OUTSIDE RECORDS SUMMARY | 2020-01-18 15:37 | XMS REPORT ---
Author Author Jeri Julien [facility] Address [address] [place], [place] [address] Care Team Providers Care Mold Machine Operator Name Role Phone Elio Julien PCP JSUTIN NAIK PreferredProvider Allergies and Adverse Reactions Name Reaction Notes tramadol Toradol Bactrim DS Zithromax Latex Ancef PENICILLINS Plan of Treatment Not available. Medications Active Name Start Date Estimated Completion Date SIG Co mments Hibiclens 4 % topical liquid 06/16/2019 apply heat treat puller ally as directed Name Start Date Expiration [...] by oral route once for 3 days [place] 5-325 mg oral tablet 05/27/2018 06/06/2018 take [...] 4 % topical liquid 01/30/2018 02/11/2018 apply heat treat puller ally as directed Diflucan 150 mg oral [...] 2 times a day for 10 days [place] 5-325 mg oral tablet 08/27/2019 10/16/2019 take [...] 9:22AM Hidradenitis Suppurativa Dec 10 2019 2:25PM Payers Insurance Name Company Name Plan Name Plan Number Policy Number Trey cy Group Number Start Date [facility] Comm Plan of [id number] N/A [place] Senior It Specialist Prog - RHC [facility] Asst Prog - C [id number] N/A [facility] Assistance [facility] Nicky tance Prog [id number] N/A [facility] Nicky tance Prog [id number] N/A [facility] Comm [id number] N/A History of Encounters Visit Date Visit [...] visit Justin Wooten MD 07/23/2018 Office visit Justni Wooetn MD 07/18/2018 Surgery Justin Wooten MD 07/15/2018 [...] MD 01/18/2018 Office visit JUSTIN MCGILL 08/29/2013 [facility] Keesha Ojeda MD
--- OUTSIDE RECORDS SUMMARY | 2020-01-18 15:37 | XMS REPORT ---
Author Author Jeri Wooten [facility] Physicians o[facility] Address [address] [place], [place] [address] Care Team Providers Care Hyperion Developer Name Role Phone Justin Wooten PCP JUSTIN NAIK PreferredProvider Allergies and Adverse Reactions Name Reaction Notes tramadol Toradol Bactrim DS Zithromax Latex Ancef PENICILLINS Plan of Treatment Not available. Medications Active Name Start Date Estimated Completion Date SIG Co mments Hibiclens 4 % topical liquid 06/16/2019 apply lithography contact worker ally as directed [place] 5-325 mg oral tablet 08/27/2019 take 1 [...] by oral route once for 3 days [place] 5-325 mg oral tablet 05/27/2018 06/06/2018 take [...] 4 % topical liquid 01/30/2018 02/11/2018 apply lithography contact worker ally as directed Diflucan 150 mg oral [...] 11:54AM Sebaceous cyst Oct 14 2019 2:42PM Payers Insurance Name Company Name Plan Name Plan Number Policy Number Trey cy Group Number Start Date [place] Research Physiologist Prog - RHC [place] Research Physiologist Prog - C [id number] N/A [place] Medical Assistance [facility] Nicky tance Prog [id number] N/A [place] Medical Assistance [facility] Nicky tance Prog [id number] N/A [facility] Comm [id number] N/A [facility] Community Plan of [place] [facility] e Comm Plan of [id number] N/A History of Encounters Visit Date Visit Type Provider 10/14/2019 Procedures Justin Wooten MD 08/27/2019 Office [...]
--- OUTSIDE RECORDS SUMMARY | 2020-01-18 15:37 | XMS REPORT ---
Author Author Jeri NAIK [facility] Address [address] [place], [place] [address] Care Team Providers Care Card Processing Clerk Name Role Phone JUSTIN NAIK PCP JUSTIN NAIK PreferredProvider Allergies and Adverse Reactions Name Reaction Notes tramadol Toradol Bactrim DS Zithromax Latex Ancef PENICILLINS Plan of Treatment Not available. Medications Active Name Start Date Estimated Completion Date SIG Co mments Hibiclens 4 % topical liquid 06/16/2019 apply electronic system engineer ally as directed Name Start Date Expiration [...] by oral route once for 3 days [place] 5-325 mg oral tablet 05/27/2018 06/06/2018 take [...] rifampin 300 mg oral capsule 09/30/2019 10/20/2019 rboer e 1 capsule by oral route 2 [...] 4 % topical liquid 01/30/2018 02/11/2018 apply electronic system engineer ally as directed Diflucan 150 mg oral [...] 2 times a day for 10 days [place] 5-325 mg oral tablet 08/27/2019 10/16/2019 take [...] HC BMI BSA BMI Percentile O2 Sat(%) 11/20/2019 9:18:00 AM 122 mm[Hg] 84 mm[Hg] [...] Left wrist pain Nov 20 2019 9:22AM Payers Insurance Name Company Name Plan Name Plan Number Policy Number Trey cy Group Number Start Date [facility] [id number] N/A [facility] Prog [id number] N/A [place] Medical Assistance [facility] Nicky tance Prog [id number] N/A [facility] - RHC - Community [facility] ealthCare RHC Comm [id number] N/A [facility] Comm Plan of [id number] N/A History of Encounters Visit Date Visit Type Provider 11/20/2019 Office visit JUSTIN MCGILL 10/14/2019 Procedures [...] MD 01/18/2018 Office visit JUSTIN MCGILL 08/29/2013 [facility] Keesha Ojeda MD
--- OUTSIDE RECORDS SUMMARY | 2020-01-18 15:38 | XMS REPORT ---
Author Author Jeri Wooten [facility] Physicians [facility] Address [address] [place], [place] [address] Care Team Providers Care Property Disposal Manager Name Role Phone Justin Wooten PCP JUSTIN NAIK PreferredProvider Allergies and Adverse Reactions Name Reaction Notes tramadol Toradol Bactrim DS Zithromax Latex Ancef PENICILLINS Plan of Treatment Not available. Medications Active Name Start Date Estimated Completion Date SIG Co mments Hibiclens 4 % topical liquid 06/16/2019 apply clinical trials specialist ally as directed rifampin 300 mg oral capsule 08/20/2019 09/09/2019 rober e 1 capsule by oral route 2 times a day for 10 days [place] 5-325 mg oral tablet 08/27/2019 take 1 tablet by oral route every 4-6 hours as needed for pain Name Start Date Expiration Date SIG Comments [...] by oral route once for 3 days [place] 5-325 mg oral tablet 05/27/2018 06/06/2018 take [...] 4 % topical liquid 01/30/2018 02/11/2018 apply clinical trials specialist ally as directed Diflucan 150 mg oral [...] unspecified body region, initial encounter J an 8 2018 9:09AM Local infection of the skin [...] respiratory tract infection, unspecified type Apr 21 019 4:02PM Cellulitis of groin Apr 21 [...] 10:39AM Postoperative Follow-up Aug 04 2019 11:40AM Payers Insurance Name Company Name Plan Name Plan Number Policy Number Trey cy Group Number Start Date [place] Dietary Aide Prog - [facility] Dietary Aide Prog - C [id number] N/A [place] Medical Assistance [facility] Nicky tance Prog [id number] N/A [place] Medical Assistance [facility] Nicky tance Prog [id number] N/A [facility] - Community Plan [facility] ealthCare RHC Comm [id number] N/A [facility] Arms HospitalCar e Comm Plan of [id number] N/A History of Encounters Visit Date Visit [...] Procedures Justin Wooten MD 10/31/2018 Office visit Matthewelias RigoEmerita Jennings PRN 10/30/2018 Procedures Justin Wooten MD [...] Wooten MD 02/11/2018 Office visit Emma collier OENOLOGIST 01/30/2018 Procedures Justin Wooten MD 01/18/2018 Office visit JUSTIN MCGILL 08/29/2013 [facility] Keesha Ojeda MD
--- OUTSIDE RECORDS SUMMARY | 2020-01-18 15:38 | XMS REPORT ---
Author Author Jeri NAIK [facility] Physicians oup Address [address] [place], [place] [address] Care Team Providers Care Letter Sorting Machine Operator Name Role Phone JUSTIN NAIK PCP JUSTIN NAIK PreferredProvider Allergies and Adverse Reactions Name Reaction Notes tramadol Toradol Bactrim DS Zithromax Latex Plan of Treatment Planned Activity Comments Planned Date Planned Time Plan/Goal Injection, Subcutaneous/IM 03/24/2019 12:00 AM Medications Active Name Start Date Estimated Completion Date SIG Co mments Hibiclens 4 % topical liquid 10/29/2018 apply ski molder ally as directed [place] 5-325 mg oral tablet 01/21/2019 take 1 tablet by oral route every 4-6 hours as needed for pain prednisone 20 mg oral tablet 03/24/2019 04/05/2019 2X4 days 1X4 days 1/2X4 days Name Start Date Expiration Date SIG [...] by oral route once for 3 days [place] 5-325 mg oral tablet 05/27/2018 06/06/2018 take 1 tablet by oral route every 4-6 hours as needed for pain for 10 days rifampin 300 mg oral capsule 07/15/2018 07/25/2018 rober e 1 capsule by oral route 2 times a day for 10 days rifampin 300 mg oral capsule 01/06/2019 01/16/2019 rober e 1 capsule by oral route 2 times a day for 10 days Norvasc 5 mg oral tablet 01/21/2019 03/22/2019 take 1 tablet (5 mg) by oral route once daily for 30 days Discontinued Name Start Date Discontinued Date SIG Comments lisinopril oral 06/11/2018 Lyrica oral 06/11/2018 estradiol 1 mg oral tablet 02/11/2018 Hibiclens 4 % topical liquid 01/30/2018 02/11/2018 apply ski molder ally as directed Diflucan 150 mg oral tablet 10/01/2018 01/31/2019 take 1 tablet (150 mg) by oral route once and one tablet in five days Flagyl 500 mg oral tablet 11/06/2018 01/06/2019 take 1 tablet by oral route twice a day for 7 days Problem List Description Status Onset Hidradenitis suppurativa Active 01/21/2018 Other chronic pain Active 01/21/2018 Essential hypertension Active 01/21/2018 Class 2 severe obesity due to excess alta ories with serious comorbidity and body mass index (BMI) of 36.0 to 36.9 in adult Active 01/21/2018 Vital Signs Date Time BP-Sys(mm[Hg] BP-Monica(mm[Hg]) HR(bpm) RR(rpm) Temp WT HT HC BMI BSA BMI Percentile O2 Sat(%) 03/24/2019 3:03:00 PM 125 mm[Hg] 88 mm[Hg] 90 {beats}/min 16 rpm 98.4 F 229 lbs 98 % 02/24/2019 1:07:00 PM 130 mm[Hg] 80 mm[Hg] 88 {beats}/min 98.1 F 22 3 lbs 65 in 37.11 kg/m2 2.15 m2 100 % 01/21/2019 1:38:00 PM 150 mm[Hg] 100 mm[Hg] 78 {beats}/min 18 rpm 98.2 F 230 lbs 65 in 38.2736 kg/m2 2.1874 m2 98 % 10/31/2018 11:44:00 AM 130 mm[Hg] 84 mm[Hg] 86 {beats}/min 18 rpm 98.2 F 236 lbs 65 in 39.27 kg/m2 2.22 m2 99 % 10/29/2018 2:33:00 PM 160 mm[Hg] 100 mm[Hg] 96 {beats}/min 20 rpm 98.4 F 235 lbs 65 in 39.1056 kg/m2 2.211 m2 99 % 09/25/2018 12:01:00 PM 158 mm[Hg] 110 mm[Hg] 90 {beats}/min 20 rpm 97.7 F 240 lbs 65 in 39.94 kg/m2 2.23 m2 97 % 08/06/2018 1:54:00 PM 130 mm[Hg] 96 mm[Hg] 99 {beats}/min 20 rpm 97.7 F 241 lbs 65 in 40.1041 kg/m2 2.2391 m2 98 % 07/24/2018 7:49:00 AM 184 mm[Hg] 110 mm[Hg] 108 {beats}/min 20 rpm 98.6 F 243 lbs 65 in 40.44 kg/m2 2.25 m2 99 % 07/16/2018 9:09:00 AM 160 mm[Hg] 86 mm[Hg] 107 {beats}/min 20 rpm 98.1 F 241 lbs 65 in 40.1041 kg/m2 2.2391 m2 99 % 07/03/2018 11:47:00 AM 116 mm[Hg] 80 mm[Hg] 81 {beats}/min 16 rpm 97.9 F 241 lbs 65 in 40.10 kg/m2 2.24 m2 98 % 06/24/2018 1:44:00 PM 132 mm[Hg] 92 mm[Hg] 91 {beats}/min 16 rpm 97.9 F 235 lbs 65 in 39.1056 kg/m2 2.211 m2 99 % 06/11/2018 10:06:00 AM 136 mm[Hg] 110 mm[Hg] 85 {beats}/min 24 rpm 97.7 F 239 lbs 65 in 39.77 kg/m2 2.23 m2 99 % 06/11/2018 10:06:00 AM 136 mm[Hg] 104 mm[Hg] 06/04/2018 9:06:00 AM 162 mm[Hg] 102 mm[Hg] 90 {beats}/min 18 rpm 98.4 F 236 lbs 65 in 39.2721 kg/m2 2.2157 m2 98 % 05/27/2018 2:22:00 PM 164 mm[Hg] 110 mm[Hg] 98 {beats}/min 16 rpm 97.7 F 239 lbs 66 in 38.58 kg/m2 2.25 m2 99 % 05/22/2018 5:02:00 PM 124 [...] WBC # Ur small History Of Immunizations Not available. History of Past Illness Name Date of Onset Comments Anxiety Hypertension Chronic pain Hidradenitis suppurativa 01/21/2018 Other chronic pain 01/21/2018 Essential hypertension [...] 3:04PM Pain management Mar 24 2019 3:04PM Payers Insurance Name Company Name Plan Name Plan Number Policy Number Trey cy Group Number Start Date [facility] Nicky tance Prog [id number] N/A [facility] Nicky tance Prog [id number] N/A [facility] - Community Plan [facility] ealtare [facility] Comm [id number] N/A [facility] Community [facility] Comm Plan of [id number] N/A History of Encounters Visit Date Visit Type Provider 03/24/2019 Office visit JUSTIN MCGILL 02/24/2019 Procedures [...] MD 01/18/2018 Office visit JUSTIN MCGILL 08/29/2013 [facility] Keesha Ojeda MD
--- OUTSIDE RECORDS SUMMARY | 2020-01-18 15:38 | XMS REPORT ---
Author Author Jeri Wooten [facility] Address [address] [place], [place] [id number] Care Team Providers Care Health Specialist Name Role Phone Justin Wooten PCP JUSTIN NAIK PreferredProvider Allergies and Adverse Reactions Name Reaction Notes tramadol Toradol Bactrim DS Zithromax Latex Ancef PENICILLINS Plan of Treatment Not available. Medications Active Name Start Date Estimated Completion Date SIG Co mments Hibiclens 4 % topical liquid 06/16/2019 apply sleep tech ally as directed [place] 5-325 mg oral tablet 08/27/2019 take 1 [...] by oral route once for 3 days [place] 5-325 mg oral tablet 05/27/2018 06/06/2018 take [...] 14 days rifampin 300 mg oral capsule 08/20/2019 09/09/2019 rober e 1 capsule by oral route 2 times a day for 10 days Discontinued Name Start Date Discontinued Date SIG Comments lisinopril oral 06/11/2018 Lyrica oral 06/11/2018 estradiol 1 mg oral tablet 02/11/2018 Hibiclens 4 % topical liquid 01/30/2018 02/11/2018 apply sleep tech ally as directed Diflucan 150 mg oral [...] Abscess Of Leg Aug 27 2019 10:36AM Payers Insurance Name Company Name Plan Name Plan Number Policy Number Trey cy Group Number Start Date [place] [address] Deputy Clerk Prog - RHC [place] [address] Deputy Clerk Prog - RH C [id number] N/A [place] Medical Assistance [facility] Medical Nicky tance Prog [id number] N/A [place] Medical Assistance [facility] Medical Nicky tance Prog [id number] N/A [facility] - Community [email or web address] RH Comm [id number] N/A [facility] Comm Plan of [id number] N/A History of Encounters Visit Date Visit [...] Wooten MD 02/11/2018 Office visit Emma collier ENTRY LEVEL FINANCE 01/30/2018 Procedures Justin Wooten MD 01/18/2018 Office visit JUSTIN MCGILL 08/29/2013 [facility] Keesha Ojeda MD
--- OUTSIDE RECORDS SUMMARY | 2020-01-18 15:38 | XMS REPORT ---
Author Author Jeri Wooten [facility] Address [address] [place], [place] [address] Care Team Providers Care Journeyman Plumber Name Role Phone Justin Wooten PCP JUSTIN NAIK PreferredProvider Allergies and Adverse Reactions Name Reaction Notes tramadol Toradol Bactrim DS Zithromax Latex Ancef PENICILLINS Plan of Treatment Not available. Medications Active Name Start Date Estimated Completion Date SIG Co mments Hibiclens 4 % topical liquid 06/16/2019 apply stage driver ally as directed rifampin 300 mg oral capsule 08/20/2019 09/09/2019 rober e 1 capsule by oral route 2 times a day for 10 days [place] 5-325 mg oral tablet 08/27/2019 take 1 [...] by oral route once for 3 days [place] 5-325 mg oral tablet 05/27/2018 06/06/2018 take [...] 4 % topical liquid 01/30/2018 02/11/2018 apply stage driver ally as directed Diflucan 150 mg oral [...] 10:38AM Wound dehiscence Aug 11 2019 10:38AM Payers Insurance Name Company Name Plan Name Plan Number Policy Number Trey cy Group Number Start Date [place] It Business Analyst Prog - RHC [place] [employer] Analyst Prog - RH C [id number] N/A [place] Medical Assistance [facility] Medical Nicky tance Prog [id number] N/A [place] Medical Assistance [facility] Medical Nicky tance Prog [id number] N/A [facility] - C - Community Plan [facility] ealthCare RHC Comm [id number] N/[facility] Plan of [id number] N/A History of Encounters Visit Date Visit [...] Wooten MD 02/11/2018 Office visit Emma collier BRUSH CLEARER SURVEYING 01/30/2018 Procedures Justin Wooten MD 01/18/2018 Office visit JUSTIN MCGILL 08/29/2013 [facility] Keesha Ojeda MD
--- OUTSIDE RECORDS SUMMARY | 2020-01-18 15:38 | XMS REPORT ---
Author Author Jeri NAIK [facility] Phys[facility] o[facility] Address [address] [place], [place] [address] Care Team Providers Care Demolition Expert Name Role Phone JUSTIN NAIK PCP JUSTIN NAIK PreferredProvider Allergies and Adverse Reactions Name Reaction Notes tramadol Toradol Bactrim DS Zithromax Latex Plan of Treatment Not available. Medications Active Name Start Date Estimated Completion Date SIG Co mments Hibiclens 4 % topical liquid 10/29/2018 apply luncheonette operator ally as directed [place] 5-325 mg oral tablet 01/21/2019 take 1 [...] by oral route once for 3 days [place] 5-325 mg oral tablet 05/27/2018 06/06/2018 take [...] 4 % topical liquid 01/30/2018 02/11/2018 apply luncheonette operator ally as directed Diflucan 150 mg oral [...] of right wrist Feb 24 2019 1:06PM Payers Insurance Name Company Name Plan Name Plan Number Policy Number Trey cy Group Number Start Date [place] Medical Assistance [facility] Medical Nicky tance Prog [id number] N/A [place] Medical Assistance [facility] Medical Nicky tance Prog [id number] N/A [facility] - Community Plan [facility] ealthCare RHC Comm [id number] N/[facility] Plan of [id number] N/A History of Encounters Visit Date Visit [...]
--- OUTSIDE RECORDS SUMMARY | 2020-01-18 15:39 | XMS REPORT ---
Author Author Jeri Julien [facility] Address [address] [place], [place] [address] Care Team Providers Care Table Machine Operator Name Role Phone Elio Julien PCP JUSTIN NAIK PreferredProvider Allergies and Adverse Reactions Name Reaction Notes tramadol Toradol Bactrim DS Zithromax Latex Plan of Treatment Planned Activity Comments Planned Date Planned Time Plan/Goal Nerve conduction studies; 9-10 studies 02/24/2019 12 :00 AM Needle Electromyography, each extremity, complete 02/24 12:00 AM Medications Active Name Start Date Estimated Completion Date SIG Co mments Hibiclens 4 % topical liquid 10/29/2018 apply sorter lumber straightener ally as directed [place] 5-325 mg oral tablet 01/21/2019 take 1 tablet by oral route every 4-6 hours as needed for pain Norvasc 5 mg oral tablet 01/21/2019 03/22/2019 take 1 tablet (5 mg) by oral route once daily for 30 days Name Start Date Expiration [...] by oral route once for 3 days [place] 5-325 mg oral tablet 05/27/2018 06/06/2018 take [...] 4 % topical liquid 01/30/2018 02/11/2018 apply sorter lumber straightener ally as directed Diflucan 150 mg oral [...] HC BMI BSA BMI Percentile O2 Sat(%) 02/24/2019 1:07:00 PM 130 mmHg 80 mmHg 88 bpm 98.1 F 223 lbs 65 in 37.1088 kg/m 2.1538 m 100 % 01/21/2019 1:38:00 PM 150 mmHg 100 mmHg 78 bpm 18 rpm 98.2 F 230 lbs 65 in 38.27 kg/m2 2.19 m2 98 % 10/31/2018 11:44:00 AM 130 mmHg 84 mmHg 86 bpm 18 rpm 98.2 F 236 lbs 65 in 39.2721 kg/m 2.2157 m 99 % 10/29/2018 2:33:00 PM 160 mmHg 100 mmHg 96 bpm 20 rpm 98.4 F 235 lbs 65 in 39.11 kg/m2 2.21 m2 99 % 09/25/2018 12:01:00 PM 158 mmHg 110 mmHg 90 bpm 20 rpm 97.7 F 240 lbs 65 in 39.9377 kg/m 2.2344 m 97 % 08/06/2018 1:54:00 PM 130 mmHg 96 mmHg 99 bpm 20 rpm 97.7 F 241 lbs 65 in 40.10 kg/m2 2.24 m2 98 % 07/24/2018 7:49:00 AM 184 mmHg 110 mmHg 108 bpm 20 rpm 98.6 F 243 lbs 65 in 40.4369 kg/m 2.2483 m 99 % 07/16/2018 9:09:00 AM 160 mmHg 86 mmHg 107 bpm 20 rpm 98.1 F 241 lbs 65 in 40.10 kg/m2 2.24 m2 99 % 07/03/2018 11:47:00 AM 116 mmHg 80 mmHg 81 bpm 16 rpm 97.9 F 241 lbs 65 in 40.10 kg/m2 2.24 m2 98 % 06/24/2018 1:44:00 PM 132 mmHg 92 mmHg 91 bpm 16 rpm 97.9 F 235 lbs 65 in 39.1056 kg/m 2.211 m 99 % 06/11/2018 10:06:00 AM 136 mmHg 110 mmHg 85 bpm 24 rpm 97.7 F 239 lbs 65 in 39.77 kg/m2 2.23 m2 99 % 06/11/2018 10:06:00 AM 136 mmHg 104 mmHg 06/04/2018 9:06:00 AM 162 mmHg 102 mmHg 90 bpm 18 rpm 98.4 F 236 lbs 65 in 39.2721 kg/m 2.2157 m 98 % 05/27/2018 2:22:00 PM 164 mmHg 110 mmHg 98 bpm 16 rpm 97.7 F 239 lbs 66 in 38.58 kg/m2 2.25 m2 99 % 05/22/2018 5:02:00 PM 124 mmHg 94 mmHg 83 bpm 16 rpm 98.6 F 99 % 04/23/2018 2:51:00 PM 128 mmHg 74 mmHg 90 bpm 18 rpm 97.9 F 237 lbs 98 % 04/16/2018 9:21:00 AM 112 mmHg 64 mmHg 68 bpm 18 rpm 98.4 F 244 lbs 98 % 04/08/2018 2:20:00 PM 152 mmHg 100 mmHg 82 bpm 16 rpm 98.1 F 239 lbs 66 in 38.5752 kg/m 2.2468 m 99 % 04/02/2018 3:36:00 PM 140 mmHg 110 mmHg 92 bpm 20 rpm 97.7 F 241 lbs 66 in 38.90 kg/m2 2.26 m2 99 % 03/26/2018 9:22:00 AM 144 mmHg 106 mmHg 87 bpm 20 rpm 98.2 F 235 lbs 66 in 37.9296 kg/m 2.2279 m 99 % 03/12/2018 10:31:00 AM 140 mmHg 84 mmHg 80 bpm 16 rpm 97.9 F 235 lbs 66 in 37.93 kg/m2 2.23 m2 100 % 03/05/2018 9:29:00 AM 136 mmHg 104 mmHg 79 bpm 20 rpm 97.7 F 235 lbs 66 in 37.9296 kg/m 2.2279 m 98 % 02/27/2018 3:28:00 PM 150 mmHg 108 mmHg 95 bpm 16 rpm 97 F 231 lbs 66 in 37.28 kg/m2 2.21 m2 98 % 02/13/2018 2:05:00 PM 138 mmHg 94 mmHg 90 bpm 16 rpm 98.6 F 231 lbs 66 in 37.284 kg/m 2.2089 m 98 % 02/11/2018 2:50:00 PM 120 mmHg 70 mmHg 76 bpm 98.1 F 231 lbs 66 in 37.28 kg/m2 2.21 m2 01/18/2018 10:04:00 AM 148 mmHg 88 mmHg 80 bpm 18 rpm 98.2 F 225 lbs 66 in 36.3156 kg/m 2.18 m 98 % Social History Name Description Comments [...] 10/31/2018 12:00 AM URINE BACTERIA CULTURE Returned Results Summary Date and Description Results 10/31/2018 [...] Number Trey cy Group Number Start Date [facility] e Comm Plan of [id number] N/A [place] Medical Assistance [facility] Nicky tan Prog [id number] N/A [place] Medical [facility] Medical Nicky tance Prog [id number] N/A [facility] ealtare [facility] Comm [id number] N/A History of Encounters Visit Date Visit Type Provider 02/24/2019 Procedures Elio Julien DO 01/21/2019 Office [...] Justin Wooten MD 04/23/2018 Office visit JUSTIN NAIK PA 04/16/2018 Office visit JUSTIN MCGILL 04/08/2018 Office [...] MD 01/18/2018 Office visit JUSTIN MCGILL 08/29/2013 [facility] Keesha Ojeda MD
--- OUTSIDE RECORDS SUMMARY | 2020-01-18 15:39 | XMS REPORT ---
Author Author Jeri Juline [facility] Address [address] [place], [place] [address] Care Team Providers Care Folder Gluer Operator Name Role Phone Elio Juline PCP JUSTIN NAIK PreferredProvider Allergies and Adverse Reactions Name Reaction Notes tramadol Toradol Bactrim DS Zithromax Latex Plan of Treatment Not available. Medications Active Name Start Date Estimated Completion Date SIG Co mments Hibiclens 4 % topical liquid 10/29/2018 apply broadcast designer ally as directed [place] 5-325 mg oral tablet 01/21/2019 take 1 [...] by oral route once for 3 days [place] 5-325 mg oral tablet 05/27/2018 06/06/2018 take [...] 4 % topical liquid 01/30/2018 02/11/2018 apply broadcast designer ally as directed Diflucan 150 mg oral [...] Percentile O2 Sat(%) 02/24/2019 1:07:00 PM 130 mm[Hg] 80 mm[Hg] [...] Number Trey cy Group Number Start Date [facility] e Comm Plan of [id number] N/A [facility] Assistance [facility] Nicky tance Prog [id number] N/A [facility] Assistance [facility] Nicky tance Prog [id number] N/A [facility] ealthCare RHC Comm [id number] N/A History of Encounters Visit Date Visit Type Provider 02/24/2019 Procedures Elio Julien DO 01/21/2019 Office visit JUSTIN MCGILL 01/06/2019 Procedures Justin Wotoen MD 10/31/2018 Office visit Hira QUINONES 10/30/2018 [...] Wooten MD 02/11/2018 Office visit Emma collier NURSE OUTREACH CASE MANAGER 01/30/2018 Procedures Justin Wooten MD 01/18/2018 Office visit JUSTIN MCGILL 08/29/2013 [facility] Keesha Ojeda MD
--- OUTSIDE RECORDS SUMMARY | 2020-01-18 15:39 | XMS REPORT ---
Author Author Jeri Julien [facility] Address [address] [place], [place] [address] Care Team Providers Care Sound Editor Name Role Phone Elio Julien PCP JUSTIN NAIK PreferredProvider Allergies and Adverse Reactions Name Reaction Notes tramadol Toradol Bactrim DS Zithromax Latex Plan of Treatment Not available. Medications Active Name Start Date Estimated Completion Date SIG Co mments Hibiclens 4 % topical liquid 10/29/2018 apply switchboard clerk ally as directed [place] 5-325 mg oral tablet 01/21/2019 take 1 [...] by oral route once for 3 days [place] 5-325 mg oral tablet 05/27/2018 06/06/2018 take [...] 4 % topical liquid 01/30/2018 02/11/2018 apply switchboard clerk ally as directed Diflucan 150 mg oral [...] Number Trey cy Group Number Start Date [facility] e Comm Plan of [id number] N/A [facility] Nicky tan Prog [id number] N/A [place] [facility] Medical Nicky tan Prog [id number] N/A [facility] ealtare [facility] Comm [id number] N/A History of Encounters Visit Date Visit [...] visit JUSTIN MCGILL 08/29/2013 [facility] Keesha Ojeda MD
--- OUTSIDE RECORDS SUMMARY | 2020-01-18 15:39 | XMS REPORT ---
Author Author Jeri NAIK [facility] Physicians [facility] Address [address] [place], [place] [address] Care Team Providers Care Personnel Worker Name Role Phone JUSTIN NAIK PCP JUSTIN NAIK PreferredProvider Allergies and Adverse Reactions Name Reaction Notes tramadol Toradol Bactrim DS Zithromax Latex Plan of Treatment Not available. Medications Active Name Start Date Estimated Completion Date SIG Co mments estradiol 1 mg oral tablet 02/12/2018 02/07/2019 take 1 tablet (1 mg) by oral route once daily for 90 days Hibiclens 4 % topical liquid 10/29/2018 apply bead flipper ally as directed [place] 5-325 mg oral tablet 01/21/2019 take 1 tablet by oral route every 4-6 hours as needed for pain Norvasc 5 mg oral tablet 01/21/2019 03/22/2019 take 1 tablet (5 mg) by oral route once daily for 30 days Name Start Date Expiration Date SIG Comments rifampin 300 mg oral capsule 02/13/2018 02/23/2018 rober e 1 capsule by oral route 2 times a day for 10 days doxycycline hyclate 100 mg oral tablet 03/26/2018 8 take 1 tablet (100 mg) by oral route 2 times per day for 14 days Diflucan 150 mg oral tablet 04/10/2018 04/19/2018 take 1 tablet (150 mg) by oral route once for 3 days [place] 5-325 mg oral tablet 05/27/2018 06/06/2018 take [...] 4 % topical liquid 01/30/2018 02/11/2018 apply bead flipper ally as directed Diflucan 150 mg oral [...] HC BMI BSA BMI Percentile O2 Sat(%) 01/21/2019 1:38:00 PM 150 mmHg 100 mmHg 78 bpm 18 rpm 98.2 F 230 lbs 65 in 38.2736 kg/m 2.1874 m 98 % 10/31/2018 11:44:00 AM 130 mmHg 84 mmHg 86 bpm 18 rpm 98.2 F 236 lbs 65 in 39.27 kg/m2 2.22 m2 99 % 10/29/2018 2:33:00 PM 160 mmHg 100 mmHg 96 bpm 20 rpm 98.4 F 235 lbs 65 in 39.1056 kg/m 2.211 m 99 % 09/25/2018 12:01:00 PM 158 mmHg 110 mmHg 90 bpm 20 rpm 97.7 F 240 lbs 65 in 39.94 kg/m2 2.23 m2 97 % 08/06/2018 1:54:00 PM 130 mmHg 96 mmHg 99 bpm 20 rpm 97.7 F 241 lbs 65 in 40.1041 kg/m 2.2391 m 98 % 07/24/2018 7:49:00 AM 184 mmHg 110 mmHg 108 bpm 20 rpm 98.6 F 243 lbs 65 in 40.44 kg/m2 2.25 m2 99 % 07/16/2018 9:09:00 AM 160 mmHg 86 mmHg 107 bpm 20 rpm 98.1 F 241 lbs 65 in 40.1041 kg/m 2.2391 m 99 % 07/03/2018 11:47:00 AM 116 mmHg [...] management contract discussed Jan 21 2019 1:39PM Payers Insurance Name Company Name Plan Name Plan Number Policy Number Trey cy Group Number Start Date [facility] Community [facility] ealthCare RH Comm [id number] N/[facility] Plan of [id number] N/A [place] [facility] Nicky tan Prog [id number] N/A [place] Medical [facility] Nicky tan Prog [id number] N/A History of Encounters Visit Date Visit Type Provider 01/21/2019 Office visit JUSTIN MCGILL 01/06/2019 Procedures [...] Office visit JUSTIN MCGILL 08/29/2013 [facility] Keesha Ojeda MD
--- OUTSIDE RECORDS SUMMARY | 2020-01-18 15:39 | XMS REPORT ---
Author Author Jeri NAIK [facility] Physicians oup Address [address] [place], [place] [address] Care Team Providers Care Rewinder Operator Helper Name Role Phone JUSTIN NAIK PCP JUSTIN NAIK PreferredProvider Allergies and Adverse Reactions Name Reaction Notes tramadol Toradol Bactrim DS Zithromax Latex Plan of Treatment Not available. Medications Active Name Start Date Estimated Completion Date SIG Co mments estradiol 1 mg oral tablet 02/12/2018 02/07/2019 take 1 tablet (1 mg) by oral route once daily for 90 days Diflucan 150 mg oral tablet 10/01/2018 take 1 tablet (150 mg) by oral route once and one tablet in five days Hibiclens 4 % topical liquid 10/29/2018 apply mobile plant operators ally as directed [place] 5-325 mg oral tablet 01/21/2019 take 1 [...] by oral route once for 3 days [place] 5-325 mg oral tablet 05/27/2018 06/06/2018 take [...] 4 % topical liquid 01/30/2018 02/11/2018 apply mobile plant operators ally as directed Flagyl 500 mg oral tablet 11/06/2018 01/06/2019 [...] of limb, unspecified Oct 29 2018 2:33PM Hidradenitis Jan 21 2019 1:39PM Pain management Jan 21 2019 1:39PM Abscess Of Leg Jan 06 2019 11:22AM Payers Insurance Name Company Name Plan Name Plan Number Policy Number Trey cy Group Number Start Date [facility] - Community Plan [facility] ealthCare RHC Comm [id number] N/A [place] e Comm Plan of [id number] N/A [place] Medical Assistance [facility] Medical Nicky tan Prog [id number] N/A [place] Medical Assistance [facility] Medical Nicky tance Prog [id number] N/A History of Encounters Visit Date Visit [...] MD 01/18/2018 Office visit JUSTIN MCGILL 08/29/2013 [facility] Keesha Ojeda MD
--- OUTSIDE RECORDS SUMMARY | 2020-01-18 15:40 | XMS REPORT ---
Author Author Jeri Moser [facility] Physicians oup Address [address] [place], [place] [address] Care Team Providers Care Extrusion Operator Name Role Phone Hira Moser PCP Unavailable JUSTIN NAIK PreferredProvider Allergies and Adverse Reactions Name Reaction Notes tramadol Toradol Bactrim DS Zithromax Latex Plan of Treatment Not available. Medications Active Name Start Date Estimated Completion Date SIG Co mments estradiol 1 mg oral tablet 02/12/2018 02/07/2019 take 1 tablet (1 mg) by oral route once daily for 90 days Norvasc 5 mg oral tablet take 1 tablet (5 mg) by oral route once daily Diflucan 150 mg oral tablet 10/01/2018 take 1 tablet (150 mg) by oral route once and one tablet in five days Hibiclens 4 % topical liquid 10/29/2018 apply family life educator ally as directed [place] 5-325 mg oral tablet 10/30/2018 take 1 tablet by oral route every 4-6 hours as needed for pain Flagyl 500 mg oral tablet 11/06/2018 take 1 tablet by oral route twice a day for 7 days Name Start Date Expiration Date SIG [...] by oral route once for 3 days [place] 5-325 mg oral tablet 05/27/2018 06/06/2018 take 1 tablet by oral route every 4-6 hours as needed for pain for 10 days rifampin 300 mg oral capsule 07/15/2018 07/25/2018 rober e 1 capsule by oral route 2 times a day for 10 days rifampin 300 mg oral capsule 10/29/2018 11/08/2018 rober e 1 capsule by oral route 2 times a day for 10 days Discontinued Name Start Date Discontinued Date SIG Comments lisinopril oral 06/11/2018 Lyrica oral 06/11/2018 estradiol 1 mg oral tablet 02/11/2018 Hibiclens 4 % topical liquid 01/30/2018 02/11/2018 apply family life educator ally as directed Problem List Description Status Onset Hidradenitis suppurativa Active 01/21/2018 Other chronic pain Active 01/21/2018 Essential hypertension Active 01/21/2018 Class 2 severe obesity due to excess [place] with serious comorbidity and body mass index (BMI) of 36.0 to 36.9 in adult Active 01/21/2018 Vital Signs Date Time BP-Sys(mm[Hg] BP-Monica(mm[Hg]) HR(bpm) RR(rpm) Temp WT HT HC BMI BSA BMI Percentile O2 Sat(%) 10/31/2018 11:44:00 AM 130 mmHg 84 mmHg [...] Lipoma of back Sep 25 2018 12:02PM Payers Insurance Name Company Name Plan Name Plan Number Policy Number Trey cy Group Number Start Date [facility] - RHC - Community Plan [facility] ealthCare RHC Comm [id number] N/A [facility] Comm Plan of [id number] N/A [facility] Nicky tance Prog [id number] N/A [place] Medical Assistance [facility] Medical Nicky tance Prog [id number] N/A History of Encounters Visit Date Visit Type Provider 10/31/2018 Office visit Hira Jennings PRN 10/30/2018 [...] Wooten MD 02/11/2018 Office visit Emma collier POLYGRAPH TECHNICIAN 01/30/2018 Procedures Justin Wooten MD 01/18/2018 Office visit JUSTIN MCGILL 08/29/2013 [facility] Keesha Ojeda MD
--- OUTSIDE RECORDS SUMMARY | 2020-01-18 15:40 | XMS REPORT ---
Author Author Jeri Moser [facility] Physicians oup Address [address] [place], [place] [address] Care Team Providers Care Sql Application Developer Name Role Phone Hira Moser PCP Unavailable [...] once and one tablet in five days rifampin 300 mg oral capsule 10/29/2018 11/08/2018 rober e 1 capsule by oral route 2 times a day for 10 days Hibiclens 4 % topical liquid 10/29/2018 apply card painter ally as directed [place] 5-325 mg oral tablet 10/30/2018 take 1 [...] by oral route once for 3 days [place] 5-325 mg oral tablet 05/27/2018 06/06/2018 take [...] 4 % topical liquid 01/30/2018 02/11/2018 apply card painter ally as directed Problem List Description Status [...] 11:49AM Trichomonas infection Oct 31 2018 11:49AM Payers Insurance Name Company Name Plan Name Plan Number Policy Number Trey cy Group Number Start Date [facility] - RHC - Community [facility] ealthCare RHC Comm [id number] N/A [facility] Comm Plan of [id number] N/A [facility] Nicky tance Prog [id number] N/A [place] Medical Assistance [facility] Medical Nicky tance Prog [id number] N/A History of Encounters Visit Date Visit [...] Wooten MD 02/11/2018 Office visit Emma collier HOUSETRAILER SERVICER 01/30/2018 Procedures Justin Wooten MD 01/18/2018 Office visit JUSTIN MCGILL 08/29/2013 [facility] Keesha Ojeda MD
--- OUTSIDE RECORDS SUMMARY | 2020-01-18 15:40 | XMS REPORT ---
Author Author Jeri Moser [facility] Physicians oup Address [address] [place], [place] [address] Care Team Providers Care Timber Grader Name Role Phone Hira Moser PCP Unavailable [...] Hibiclens 4 % topical liquid 10/29/2018 apply inbound call center agent ally as directed [place] 5-325 mg oral tablet 10/30/2018 take 1 [...] oral route once for 3 days [place] 5-325 mg oral tablet 05/27/2018 06/06/2018 take [...] 4 % topical liquid 01/30/2018 02/11/2018 apply inbound call center agent ally as directed Problem List Description Status [...] Number Trey cy Group Number Start Date [facility] ealthCare RHC Comm [id number] N/A [facility] Comm Plan of [id number] N/A [facility] Nicky tance Prog [id number] N/A [place] Medical Assistance [facility] Medical Nicky tance Prog [id number] N/A History of Encounters Visit Date Visit [...] Wooten MD 02/11/2018 Office visit Emma collier AUTOMATIC STACKER 01/30/2018 Procedures Justin Wooten MD 01/18/2018 Office visit JUSTIN MCGILL 08/29/2013 [facility] Keesha Ojeda MD
--- OUTSIDE RECORDS SUMMARY | 2020-01-18 15:40 | XMS REPORT ---
Author Author Jeri Moser [facility]up Address [address] [place], [place] [address] Care Team Providers Care Placement Assistant Name Role Phone Hira Moser PCP Unavailable [...] Hibiclens 4 % topical liquid 10/29/2018 apply printed circuit board panels trimmer ally as directed [place] 5-325 mg oral tablet 10/30/2018 take 1 [...] by oral route once for 3 days [place] 5-325 mg oral tablet 05/27/2018 06/06/2018 take [...] 4 % topical liquid 01/30/2018 02/11/2018 apply printed circuit board panels trimmer ally as directed Problem List Description Status [...] of limb, unspecified Oct 29 2018 2:33PM Payers Insurance Name Company Name Plan Name Plan Number Policy Number Trey cy Group Number Start Date [facility] - RHC - Community Plan [facility] ealthCare RHC Comm [id number] [facility] of [id number] N/A [facility] Assistance [facility] Nicky tance Prog [id number] N/A [place] Medical Assistance [facility] Nicky tance Prog [id number] N/A History of Encounters Visit Date Visit Type Provider 10/31/2018 Office visit Hira OLIVAN 10/30/2018 Procedures [...] MD 01/18/2018 Office visit JUSTIN MCGILL 08/29/2013 [facility] Keesha Ojeda MD
--- OUTSIDE RECORDS SUMMARY | 2020-01-18 15:40 | XMS REPORT ---
Author Author Jeri [facility]oser [facility] Address [address] [place], [place] [address] Care Team Providers Care Indirect Sales Representative Name Role Phone Hira Moser PCP Unavailable [...] Hibiclens 4 % topical liquid 10/29/2018 apply payroll associate ally as directed [place]ox 5-325 mg oral tablet 10/30/2018 take 1 tablet by oral route every 4-6 hours as needed for pain Flagyl 500 mg oral tablet 11/05/2018 take 1 tablet by oral route twice a day for 7 days Name Start Date Expiration Date SIG Comments rifampin 300 mg oral capsule 02/13/2018 02/23/2018 rober e 1 capsule by oral route 2 times a day for 10 days doxycycline hyclate 100 mg oral tablet 03/26/2018 take 1 tablet (100 mg) by oral route 2 times per day for 14 days Diflucan 150 mg oral tablet 04/10/2018 04/19/2018 take 1 tablet (150 mg) by oral route once for 3 days [place] 5-325 mg oral tablet 05/27/2018 06/06/2018 take [...] 4 % topical liquid 01/30/2018 02/11/2018 apply payroll associate ally as directed Problem List Description Status [...] 11:49AM Vaginal discharge Oct 31 2018 11:49AM Payers Insurance Name Company Name Plan Name Plan Number Policy Number Trye cy Group Number Start Date [facility] - RHC - Community Plan [facility] ealthCare RHC Comm [id number] N/A [facility] Plan of [id number] N/A [place] Medical Assistance [facility] Medical Nicky tance Prog [id number] N/A [place] Medical Assistance [facility] Medical Nicky tance Prog [id number] N/A History of Encounters Visit Date Visit [...] Surgery Justin Wooten MD 05/22/2018 Office visit Jusitn Wooten MD 04/23/2018 Office visit JUSTIN MCGILL [...] Justin Wooten MD 02/11/2018 Office visit Emma Olivas n POLICY WRITER SALES 01/30/2018 Procedures Justin Wooten MD 01/18/2018 Office visit JUSTIN MCGILL 08/29/2013 [facility] Alisa Ojeda MD
--- OUTSIDE RECORDS SUMMARY | 2020-01-18 15:40 | XMS REPORT ---
Author Author Jeri Moser [facility] Address [address] [place], [place] [address] Care Team Providers Care Registration Rep Name Role Phone Hira Moser PCP Unavailable JUSTIN NAIK PreferredProvider Allergies and Adverse Reactions Name Reaction Notes tramadol Toradol Bactrim DS Zithromax Latex Plan of Treatment Planned Activity Comments Planned Date Planned Time Plan/Goal Urine culture and sensitivity 10/31/2018 12:00 AM Medications Active Name Start Date [...] Hibiclens 4 % topical liquid 10/29/2018 apply conciliator ally as directed [place] 5-325 mg oral tablet 10/30/2018 take 1 [...] by oral route once for 3 days [place] 5-325 mg oral tablet 05/27/2018 06/06/2018 take [...] 4 % topical liquid 01/30/2018 02/11/2018 apply conciliator ally as directed Problem List Description Status [...] 97.9 F 241 lbs 65 in 40.1041 kg/m 2.2391 m 98 % 06/24/2018 1:44:00 PM 132 mmHg 92 mmHg 91 bpm 16 rpm 97.9 F 235 lbs 65 in 39.11 kg/m2 2.21 m2 99 % 06/11/2018 10:06:00 AM 136 mmHg 110 mmHg 85 bpm 24 rpm 97.7 F 239 lbs 65 in 39.7713 kg/m 2.2297 m 99 % 06/11/2018 10:06:00 AM 136 mmHg 104 mmHg 06/04/2018 9:06:00 AM 162 mmHg 102 mmHg 90 bpm 18 rpm 98.4 F 236 lbs 65 in 39.27 kg/m2 2.22 m2 98 % 05/27/2018 2:22:00 PM 164 mmHg 110 mmHg 98 bpm 16 rpm 97.7 F 239 lbs 66 in 38.5752 kg/m 2.2468 m 99 % 05/22/2018 5:02:00 PM 124 mmHg [...] rpm 98.1 F 239 lbs 66 in 38.58 kg/m2 2.25 m2 99 % 04/02/2018 3:36:00 PM 140 mmHg 110 mmHg 92 bpm 20 rpm 97.7 F 241 lbs 66 in 38.898 kg/m 2.2562 m 99 % 03/26/2018 9:22:00 AM 144 mmHg 106 mmHg 87 bpm 20 rpm 98.2 F 235 lbs 66 in 37.93 kg/m2 2.23 m2 99 % 03/12/2018 10:31:00 AM 140 mmHg 84 mmHg 80 bpm 16 rpm 97.9 F 235 lbs 66 in 37.9296 kg/m 2.2279 m 100 % 03/05/2018 9:29:00 AM 136 mmHg 104 mmHg 79 bpm 20 rpm 97.7 F 235 lbs 66 in 37.93 kg/m2 2.23 m2 98 % 02/27/2018 3:28:00 PM 150 mmHg 108 mmHg 95 bpm 16 rpm 97 F 231 lbs 66 in 37.284 kg/m 2.2089 m 98 % 02/13/2018 2:05:00 PM 138 mmHg 94 mmHg 90 bpm 16 rpm 98.6 F 231 lbs 66 in 37.28 kg/m2 2.21 m2 98 % 02/11/2018 2:50:00 PM 120 mmHg 70 mmHg 76 bpm 98.1 F 231 lbs 66 in 37.284 kg/m 2.2089 m 01/18/2018 10:04:00 AM 148 mmHg 88 mmHg 80 bpm 18 rpm 98.2 F 225 lbs 66 in 36.32 kg/m2 2.18 m2 98 % Social History [...] 12:00 PM URINALYSIS AUTO W/O SCOPE Reviewed Results Summary Date and Description Results [...] Number Trey cy Group Number Start Date [facility] - RHC - Community Plan [facility] ealthCare RHC Comm [id number] N/A [facility] Plan of [id number] N/A [place] Medical Assistance [facility] Medical Nicky tance Prog [id number] N/A [place] Medical Assistance [facility] Medical Nicky tance Prog [id number] N/A History of Encounters Visit Date Visit Type Provider 10/31/2018 Office visit Hira Jennings PRN 10/30/2018 Procedures Justin Wooten MD 10/29/2018 Office visit Justin Wooten MD 09/25/2018 Procedures Justin Wooten MD 08/06/2018 Office visit Justin Wooten MD 07/23/2018 Office visit Justin Wooten MD 07/18/2018 Surgery Justin Wooten MD 07/15/2018 Office visit Justin Wooten MD 07/11/2018 Surgery Jsutin Wooten MD 07/03/2018 Office visit Justin Wooten [...] Wooten MD 02/11/2018 Office visit Emma collier SOFTWARE ENGINEER DEVELOPER 01/30/2018 Procedures Justin Wooten MD 01/18/2018 Office visit JUSTIN MCGILL 08/29/2013 [facility] Keesha Ojeda MD
--- OUTSIDE RECORDS SUMMARY | 2020-01-18 15:41 | XMS REPORT ---
Author Author Jeri Wooten [facility] Physicians oup Address [address] [place], [place] [address] Care Team Providers Care Fitting Room Associate Name Role Phone Justin Wooten PCP JUSTIN [...] (5 mg) by oral route once daily rifampin 300 mg oral capsule 07/15/2018 07/25/2018 rober e 1 capsule by oral route 2 times a day for 10 days Name Start Date [...] by oral route once for 3 days [place] 5-325 mg oral tablet 05/27/2018 06/06/2018 take 1 tablet by oral route every 4-6 hours as needed for pain for 10 days Discontinued Name Start Date Discontinued Date SIG Comments lisinopril oral 06/11/2018 Lyrica oral 06/11/2018 estradiol 1 mg oral tablet 02/11/2018 Hibiclens 4 % topical liquid 01/30/2018 02/11/2018 apply newsroom intern ally as directed Problem List Description Status Onset Hidradenitis Suppurativa Active 01/21/2018 Other chronic pain Active 01/21/2018 Essential hypertension Active 01/21/2018 Class 2 severe obesity due to excess alta ories with serious comorbidity and body mass index (BMI) of 36.0 to 36.9 in adult Active 01/21/2018 Vital Signs Date Time BP-Sys(mm[Hg] BP-Monica(mm[Hg]) HR(bpm) RR(rpm) Temp WT HT HC BMI BSA BMI Percentile O2 Sat(%) 07/16/2018 9:09:00 AM 160 mmHg 86 mmHg [...] Reviewed 04/16/2018 12:00 AM Wrist Splint Reviewed Results Summary Not available. History Of Immunizations Not available. History of [...] tissue, u nspecified Jul 16 2018 9:09AM Payers Insurance Name Company Name Plan Name Plan Number Policy Number Trey cy Group Number Start Date [facility] - RHC - Community Plan of [facility] ealthCare RHC Comm [id number] N/A [facility] Community [facility] Plan of [id number] N/A [place] Medical Assistance [facility] Medical Nicky tance Prog [id number] N/A [place] Medical Assistance [facility] Medical Nicky tance Prog [id number] N/A History of Encounters Visit Date Visit Type Provider 07/15/2018 Office visit Justin Wooten MD 07/11/2018 [...]
--- OUTSIDE RECORDS SUMMARY | 2020-01-18 15:41 | XMS REPORT ---
Author Author Jeri Wooten [facility] Physicians oup Address [address] [place], [place] [address] Care Team Providers Care Manufacturing Quality Inspector Name Role Phone Justin Wooten PCP JUSTIN [...] (5 mg) by oral route once daily Name Start Date Expiration Date SIG Comments [...] by oral route once for 3 days [place] 5-325 mg oral tablet 05/27/2018 06/06/2018 take [...] 4 % topical liquid 01/30/2018 02/11/2018 apply research study assistant ally as directed Problem List Description Status [...] HC BMI BSA BMI Percentile O2 Sat(%) 08/06/2018 1:54:00 PM 130 mmHg 96 mmHg [...] of limb, unspecified Aug 06 2018 1:55PM Payers Insurance Name Company Name Plan Name Plan Number Policy Number Trey cy Group Number Start Date [facility] - RHC - Community Plan [facility] ealthCare RHC Comm [id number] N/[facility] Plan of [id number] N/A [place] Medical Assistance [facility] Medical Nicky tance Prog [id number] N/A [place] Medical Assistance [facility] Medical Nicky tance Prog [id number] N/A History of Encounters Visit Date Visit Type Provider 08/06/2018 Office visit Justin Wooten MD 07/23/2018 [...] Wooten MD 02/11/2018 Office visit Emma collier HUMAN FACTORS ADVISOR LEAD 01/30/2018 Procedures Justin Wooten MD 01/18/2018 Office visit JUSTIN MCGILL 08/29/2013 [facility] Keesha Ojeda MD
--- OUTSIDE RECORDS SUMMARY | 2020-01-18 15:41 | XMS REPORT ---
Author Author Jeri Wooten [facility] Physicians oup Address [address] [place], [place] [address] Care Team Providers Care Optics Manufacturing Technician Name Role Phone Justin Wooten PCP JUSTIN [...] once and one tablet in five days Name Start Date Expiration Date SIG [...] by oral route once for 3 days [place] 5-325 mg oral tablet 05/27/2018 06/06/2018 take [...] 4 % topical liquid 01/30/2018 02/11/2018 apply hot plate press operator ally as directed Problem List Description Status [...] HC BMI BSA BMI Percentile O2 Sat(%) 09/25/2018 12:01:00 PM 158 mmHg 110 mmHg [...] Of Upper Arm Jul 24 2018 7:50AM Payers Insurance Name Company Name Plan Name Plan Number Policy Number Trey cy Group Number Start Date [facility] - Community Plan [facility] ealthCare RHC Comm [id number] N/A [facility] Plan of [id number] N/A [place] Medical Assistance [facility] Nicky tan Prog [id number] N/A [place] Medical Assistance [facility] Nicky tan Prog [id number] N/A History of Encounters Visit Date Visit Type Provider 09/25/2018 Procedures Justin Wooten MD 08/06/2018 Office [...]
--- OUTSIDE RECORDS SUMMARY | 2020-01-18 15:41 | XMS REPORT ---
Author Author Jeri Wooten [facility] Physicians oup Address [address] [place], [place] [address] Care Team Providers Care Concrete Block Maker Name Role Phone Justin Wooten PCP Allergies and Adverse Reactions Name Reaction Notes [...] by oral route once for 3 days [place] 5-325 mg oral tablet 05/27/2018 06/06/2018 take 1 tablet by oral route every 4-6 hours as needed for pain for 10 days rifampin 300 mg oral capsule 06/11/2018 06/21/2018 rober e 1 capsule by oral route 2 times a day for 10 days Discontinued Name Start Date Discontinued Date SIG Comments lisinopril oral 06/11/2018 Lyrica oral 06/11/2018 estradiol 1 mg oral tablet 02/11/2018 Hibiclens 4 % topical liquid 01/30/2018 02/11/2018 apply child custody evaluator ally as directed Problem List Description Status [...] HC BMI BSA BMI Percentile O2 Sat(%) 07/03/2018 11:47:00 AM 116 mmHg 80 mmHg [...] 1:44PM Postoperative Follow-up Jul 03 2018 11:47AM Payers Insurance Name Company Name Plan Name Plan Number Policy Number Trey cy Group Number Start Date [facility] - Community [facility] ealthCare [facility] Comm [id number] N/A [facility] Plan of [id number] N/A [facility] Nikcy tanella Prog [id number] N/A [facility] Nicky tanella Prog [id number] N/A History of Encounters Visit Date Visit Type Provider 07/03/2018 Office visit Justin Wooten MD 06/24/2018 [...] MD 01/18/2018 Office visit JUSTIN MCGILL 08/29/2013 Felicita Ojeda MD
--- OUTSIDE RECORDS SUMMARY | 2020-01-18 15:41 | XMS REPORT ---
Author Author Jeri Wooten [facility] Physicians oup Address [address] [place], [place] [address] Care Team Providers Care Machine Room Engineer Name Role Phone Justin Wooten PCP JUSTIN [...] Hibiclens 4 % topical liquid 10/29/2018 apply student development specialist ally as directed [place] 5-325 mg oral tablet 10/30/2018 take 1 [...] by oral route once for 3 days [place] 5-325 mg oral tablet 05/27/2018 06/06/2018 take [...] 4 % topical liquid 01/30/2018 02/11/2018 apply student development specialist ally as directed Problem List Description Status [...] HC BMI BSA BMI Percentile O2 Sat(%) 10/29/2018 2:33:00 PM 160 mmHg 100 mmHg [...] Abscess Of Trunk Oct 30 2018 10:37AM Payers Insurance Name Company Name Plan Name Plan Number Policy Number Trey cy Group Number Start Date [facility] ealthCare [place] Comm [id number] N/A [facility] Plan of [id number] N/A [place] Medical Assistance [facility] Nicky tance Prog [id number] N/A [place] Medical Assistance [facility] Medical Nicky tance Prog [id number] N/A History of Encounters Visit Date Visit Type Provider 10/30/2018 Procedures Justin Wooten MD 10/29/2018 Office [...] Justin Wooten MD 01/18/2018 Office visit JUSTIN NAIK PA 08/29/2013 [facility] Keesha Ojeda MD
--- OUTSIDE RECORDS SUMMARY | 2020-01-18 15:41 | XMS REPORT ---
Author Author Jeri Wooten [facility] Physicians oup Address [address] [place], [place] [address] Care Team Providers Care Dog Races Manager Name Role Phone Justin Wooten PCP Allergies [...] by oral route once for 3 days [place] 5-325 mg oral tablet 05/27/2018 06/06/2018 take [...] 4 % topical liquid 01/30/2018 02/11/2018 apply licensed prosthetist/orthotist ally as directed Problem List Description Status [...] HC BMI BSA BMI Percentile O2 Sat(%) 06/24/2018 1:44:00 PM 132 mmHg 92 mmHg [...] 2:51PM Postoperative Follow-up Jun 24 2018 1:44PM Payers Insurance Name Company Name Plan Name Plan Number Policy Number Trey cy Group Number Start Date [facility] - Community [facility] ealtare RHC Comm [id number] N/A [facility] Plan of [id number] N/A [place] Medical Assistance [facility] Nicky tance Prog [id number] N/A [place] Medical Assistance [facility] Medical Nicky tance Prog [id number] N/A History of Encounters Visit Date Visit Type Provider 06/24/2018 Office visit Justin Wooten MD 06/20/2018 [...] MD 01/18/2018 Office visit JUSTIN MCGILL 08/29/2013 [facility] Keesha Ojeda MD
--- OUTSIDE RECORDS SUMMARY | 2020-01-18 15:42 | XMS REPORT ---
Author Author Jeri Wooten [facility] Address [address] [place], [place] [address] Care Team Providers Care Propeller Tester Name Role Phone Justin Wooten PCP Allergies and Adverse Reactions Name Reaction Notes tramadol Toradol Bactrim DS Zithromax Latex Plan of Treatment Not available. Medications Active Name Start Date Estimated Completion Date SIG Co mments lisinopril oral Lyrica oral estradiol 1 mg oral tablet 02/12/2018 02/07/2019 take 1 tablet (1 mg) by oral route once daily for 90 days doxycycline hyclate 100 mg oral tablet 03/26/2018 8 take 1 tablet (100 mg) by oral route 2 times per day for 14 days [place] 5-325 mg oral tablet 05/22/2018 06/01/2018 take 1 tablet by oral route every 4-6 hours as needed for pain for 10 days Name Start Date Expiration Date SIG Comments rifampin 300 mg oral capsule 02/13/2018 02/23/2018 rober e 1 capsule by oral route 2 times a day for 10 days Diflucan 150 mg oral tablet 04/10/2018 04/19/2018 take 1 tablet (150 mg) by oral route once for 3 days Discontinued Name Start Date Discontinued Date SIG Comments estradiol 1 mg oral tablet 02/11/2018 Hibiclens 4 % topical liquid 01/30/2018 02/11/2018 apply commercial fishing vessel operator ally as directed Problem List Description [...] HC BMI BSA BMI Percentile O2 Sat(%) 05/22/2018 5:02:00 PM 124 mmHg 94 mmHg [...] of limb, unspecified May 22 2018 5:03PM Payers Insurance Name Company Name Plan Name Plan Number Policy Number Trey cy Group Number Start Date [facility] - RHC - Community Plan [facility] ealthCare RHC Comm [id number] N/A [facility] Plan of [id number] N/A [place] Medical Assistance [facility] Medical Nicky tance Prog [id number] N/A [facility] Assistance [facility] Medical Nicky tance Prog [id number] N/A History of Encounters Visit Date Visit Type Provider 05/22/2018 Office visit Justin Wooten MD 04/23/2018 [...] Wooten MD 02/11/2018 Office visit Emma collier YARD BRAKEMAN 01/30/2018 Procedures Justin Wooten MD 01/18/2018 Office visit JUSTIN MCGILL 08/29/2013 [facility] Keesha Ojeda MD
--- OUTSIDE RECORDS SUMMARY | 2020-01-18 15:42 | XMS REPORT ---
Author Author Jeri NAIK [facility] Address [address] [place], [place] [address] Care Team Providers Care Payroll Associate Name Role Phone JUSTIN NAIK PCP Allergies and Adverse Reactions Name Reaction [...] 2 times per day for 14 days Name Start Date Expiration Date SIG Comments rifampin 300 mg oral capsule 02/13/2018 02/23/2018 rober e 1 capsule by oral route 2 times a day for 10 days Diflucan 150 mg oral tablet 04/10/2018 04/19/2018 take 1 tablet (150 mg) by oral route once for 3 days [place] 5-325 mg oral tablet 05/27/2018 06/06/2018 take 1 tablet by oral route every 4-6 hours as needed for pain for 10 days Discontinued Name Start Date Discontinued Date SIG Comments estradiol 1 mg oral tablet 02/11/2018 Hibiclens 4 % topical liquid 01/30/2018 02/11/2018 apply roller bearing inspector ally as directed Problem List Description Status [...] HC BMI BSA BMI Percentile O2 Sat(%) 06/04/2018 9:06:00 AM 162 mmHg 102 mmHg [...] 9:07AM Medication management Jun 04 2018 9:07AM Payers Insurance Name Company Name Plan Name Plan Number Policy Number Trey cy Group Number Start Date [facility] - RHC - Community Plan [facility] ealthCare RHC Comm [id number] N/A [facility] Community [facility] Plan of [id number] N/A [place] Medical Assistance [facility] Nicky tance Prog [id number] N/A [place] Medical Assistance [facility] Medical Nicky tance Prog [id number] N/A History of Encounters Visit Date Visit Type Provider 06/04/2018 Office visit JUSTIN MCGILL 05/27/2018 Office [...]
--- OUTSIDE RECORDS SUMMARY | 2020-01-18 15:42 | XMS REPORT ---
Author Jeri [facility] Address [address] [place], [place] [address] Care Team Providers Care Animal Chiropractor Name Role Phone JUSTIN NAIK PCP Allergies [...] 2 times per day for 14 days [place] 5-325 mg oral tablet 04/16/2018 take 1 tablet by oral route every [...] 4 % topical liquid 01/30/2018 02/11/2018 apply negotiator sales ally as directed Problem List Description Status [...] HC BMI BSA BMI Percentile O2 Sat(%) 04/23/2018 2:51:00 PM 128 mmHg 74 mmHg [...] 2:51PM Postoperative Follow-up Mar 05 2018 9:29AM Payers Insurance Name Company Name Plan Name Plan Number Policy Number Trey cy Group Number Start Date [facility] ealthCare RHC Comm [id number] N/A [facility] Comm Plan of [id number] N/A [place] Assistance [facility] Nickysanjana hernandez Prog [id number] N/A [facility] Assistance [facility] Medical Nicky tance Prog [id number] N/A History of Encounters Visit Date Visit Type Provider 04/23/2018 Office visit JUSTIN MCGILL 04/16/2018 Office [...] Wooten MD 02/11/2018 Office visit Emma collier FIELD AGENT 01/30/2018 Procedures Justin Wooten MD 01/18/2018 Office visit JUSTIN MCGILL 08/29/2013 [facility] Keesha Ojeda MD
--- OUTSIDE RECORDS SUMMARY | 2020-01-18 15:42 | XMS REPORT ---
Author Author Jeri Wooten [facility] Physicians oup Address [address] [place], [place] [address] Care Team Providers Care Machinist Set Up Name Role Phone Justin Wooten PCP Allergies [...] 2 times per day for 14 days Norvasc 5 mg oral tablet take 1 tablet (5 mg) by oral route once daily rifampin 300 mg oral capsule 06/11/2018 06/21/2018 [...] by oral route once for 3 days [place] 5-325 mg oral tablet 05/27/2018 06/06/2018 take 1 tablet by oral route every 4-6 hours as needed for pain for 10 days Discontinued Name Start Date Discontinued Date SIG Comments lisinopril oral 06/11/2018 Lyrica oral 06/11/2018 estradiol 1 mg oral tablet 02/11/2018 Hibiclens 4 % topical liquid 01/30/2018 02/11/2018 apply adobe developer ally as directed Problem List Description Status [...] HC BMI BSA BMI Percentile O2 Sat(%) 06/11/2018 10:06:00 AM 136 mmHg 110 mmHg [...] 239 lbs 66 in 38.58 kg/m2 2.2468 m 99 % 05/22/2018 5:02:00 PM [...] Abscess Of Leg Jun 11 2018 10:07AM Payers Insurance Name Company Name Plan Name Plan Number Policy Number Trey cy Group Number Start Date [facility] Community [facility] ealtare [facility] Comm [id number] [facility] Plan of [id number] N/A [facility] Nicky tan Prog [id number] N/A [place] Medical Assistance [facility] Medical Nicky tance Prog [id number] N/A History of Encounters Visit Date Visit Type Provider 06/11/2018 Office visit Justin Wooten MD 06/04/2018 [...] MD 01/18/2018 Office visit JUSTIN MCGILL 08/29/2013 [facility] Keesha Ojeda MD
--- OUTSIDE RECORDS SUMMARY | 2020-01-18 15:42 | XMS REPORT ---
Author Author Jeri Wooten [facility] Address [address] [place], [place] [address] Care Team Providers Care Medicare Biller Name Role Phone Justin Wooten PCP Allergies [...] by oral route once for 3 days [place] 5-325 mg oral tablet 05/27/2018 06/06/2018 take 1 tablet by oral route every 4-6 hours as needed for pain for 10 days Discontinued Name Start Date Discontinued Date SIG Comments lisinopril oral 06/11/2018 Lyrica oral 06/11/2018 estradiol 1 mg oral tablet 02/11/2018 Hibiclens 4 % topical liquid 01/30/2018 02/11/2018 apply clinical lab technologist ally as directed Problem List Description Status [...] 10:07AM Hidradenitis Suppurativa Jun 19 2018 2:51PM Payers Insurance Name Company Name Plan Name Plan Number Policy Number Trey cy Group Number Start Date [facility] - [facility] - Community Plan [facility] ealthCare RHC Comm [id number] N/A [facility] Community [facility] [id number] N/A [place] [facility] Medical Nicky tance Prog [id number] N/A [place] Medical Assistance [facility] Medical Nicky tance Prog [id number] N/A History of Encounters Visit Date Visit [...]
--- OUTSIDE RECORDS SUMMARY | 2020-01-18 15:42 | XMS REPORT ---
Author Jeri [facility] Address [address] [place], [place] [address] Care Team Providers Care Raymond Mill Operator Name Role Phone JUSTIN NAIK PCP Allergies [...] 2 times per day for 14 days [place] 5-325 mg oral tablet 04/16/2018 take 1 [...] 4 % topical liquid 01/30/2018 02/11/2018 apply house wrecker ally as directed Problem List Description Status [...] 2:51PM Essential hypertension Apr 23 2018 2:51PM Payers Insurance Name Company Name Plan Name Plan Number Policy Number Trey cy Group Number Start Date [facility] - Community [facility] ealthCare RHC Comm [id number] N/A [facility] of [id number] N/A [place] Medical Assistance [facility] Nicky Howell [id number] N/A [place] Medical Assistance [facility] Nicky Howell [id number] N/A History of Encounters Visit Date Visit Type Provider 04/23/2018 Office visit JUSTIN MCGILL 04/16/2018 Office visit JUSTIN MCGILL 04/08/2018 Office visit Justin Wooten MD 04/02/2018 Office visit Justin Wooten MD 03/26/2018 Procedures Justin Wooten MD 03/14/2018 Surgery Justin Wooten MD 03/12/2018 Office visit Jutsin Wooten MD 03/05/2018 Office visit Justin Wooten MD 02/27/2018 Office visit Justin Wooten MD 02/21/2018 Surgery Justin Wooten MD 02/13/2018 Office visit Justin Wooten MD 02/11/2018 Office visit Emma collier APRN 01/30/2018 Procedures Justin Wooten MD 01/18/2018 Office visit JUSTIN MCGILL 08/29/2013 [facility] Keesha Ojeda MD
--- OUTSIDE RECORDS SUMMARY | 2020-01-18 15:42 | XMS REPORT ---
Author Author Jeri Wooten [facility] Address [address] [place], [place] [address] Care Team Providers Care Web Manager Name Role Phone Justin Wooten PCP [...] 2 times per day for 14 days [place] 5-325 mg oral tablet 05/27/2018 06/06/2018 take [...] 4 % topical liquid 01/30/2018 02/11/2018 apply physician relations representative ally as directed Problem List Description Status [...] HC BMI BSA BMI Percentile O2 Sat(%) 05/27/2018 2:22:00 PM 164 mmHg 110 mmHg [...] Abscess Of Trunk May 27 2018 2:22PM Payers Insurance Name Company Name Plan Name Plan Number Policy Number Trey cy Group Number Start Date [facility] - RHC - Community Plan [facility] ealthCare RHC Comm [id number] [facility] [id number] N/A [place] [facility] Nicky tan Prog [id number] N/A [place] [facility] Nicky tance Prog [id number] N/A History of Encounters Visit Date Visit Type Provider 05/27/2018 Office visit Justin Wooten MD 05/23/2018 [...] MD 01/18/2018 Office visit JUSTIN MCGILL 08/29/2013 [facility] Keesha Ojeda MD
--- OUTSIDE RECORDS SUMMARY | 2020-01-18 15:42 | XMS REPORT ---
Author Author Jeri Wooten [facility] Address [address] [place], [place] [address] Care Team Providers Care Practice Representative Name Role Phone Justin Wooten PCP Allergies [...] 2 times per day for 14 days [place] 5-325 mg oral tablet 05/27/2018 06/06/2018 take [...] % topical liquid 01/30/2018 02/11/2018 apply student life coordinator ally as directed Problem List Description Status [...] 2:22PM Postoperative Follow-up Apr 08 2018 2:20PM Payers Insurance Name Company Name Plan Name Plan Number Policy Number Trey cy Group Number Start Date [facility] - RHC - Community Plan [facility] ealthCare RHC Comm [id number] [facility] [id number] N/A [place] Medical Assistance [facility] Nicky tance Prog [id number] N/A [place] Medical Assistance [facility] Medical Nicky tance Prog [id number] N/A History of Encounters Visit Date Visit [...]
--- OUTSIDE RECORDS SUMMARY | 2020-01-18 15:42 | XMS REPORT ---
Author Author Jeri Wooten [facility] Address [address] [place], [place] [address] Care Team Providers Care Customer Account Executive Name Role Phone Justin Wooten PCP Allergies [...] 2 times per day for 14 days [place] 5-325 mg oral tablet 05/27/2018 06/06/2018 take [...] 4 % topical liquid 01/30/2018 02/11/2018 apply director of graduate medical education ally as directed Problem List Description Status [...] 2:20PM Postoperative Follow-up Mar 26 2018 9:23AM Payers Insurance Name Company Name Plan Name Plan Number Policy Number Trey cy Group Number Start Date [facility] - RHC - Community Plan [facility] ealthCare RHC Comm [id number] N[facility] [id number] N/A [place] Medical Assistance [facility] Nicky tance Prog [id number] N/A [place] [facility] Nicky tance Prog [id number] N/A History of Encounters Visit Date Visit [...] MD 01/18/2018 Office visit JUSTIN MCGILL 08/29/2013 [facility] Keesha Ojeda MD
--- OUTSIDE RECORDS SUMMARY | 2020-01-18 15:43 | XMS REPORT ---
Author Author Jeri Wooten [facility] Address [address] [place], [place] [address] Care Team Providers Care Policy Issue Clerk Name Role Phone Justin Wooten PCP Allergies and Adverse Reactions Name Reaction Notes tramadol Toradol Bactrim DS Zithromax Latex Plan of Treatment Not available. Medications Active Name Start Date Estimated Completion Date SIG Co mments lisinopril oral Lyrica oral [place] 5-325 mg oral tablet 01/21/2018 take 1 tablet by oral route every 4-6 hours as needed for pain estradiol 1 mg oral tablet 02/12/2018 02/07/2019 take 1 tablet (1 mg) by oral route once daily for 90 days rifampin 300 mg oral capsule 02/13/2018 02/23/2018 rober e 1 capsule by oral route 2 times a day for 10 days Discontinued Name Start Date Discontinued Date SIG Comments estradiol 1 mg oral tablet 02/11/2018 Hibiclens 4 % topical liquid 01/30/2018 02/11/2018 apply churn operator ally as directed Problem List Description [...] HC BMI BSA BMI Percentile O2 Sat(%) 02/13/2018 2:05:00 PM 138 mmHg 94 mmHg [...] 02/12/2018 12:00 AM CYTOPATH C/V THIN LAYER Returned 02/12/2018 12:00 AM N.GONORRHOEAE DNA AMP PROB Returned 02/12/2018 12:00 AM CHLAMYDIA CULTURE Returned 02/12/2018 12:00 AM DETECT AGENT NOS DNA AMP Reviewed 02/12/2018 12:00 AM TRICHOMONAS VAGINALIS AMPLIF Reviewed Results Summary Not available. History Of [...] 2:06PM Hidradenitis Suppurativa Feb 19 2018 7:57AM Payers Insurance Name Company Name Plan Name Plan Number Policy Number Trey cy Group Number Start Date [facility] - [facility] - Community [facility] ealthCare RHC Comm [id number] N/A [facility] Plan of [id number] N/A [place] Medical Assistance [facility] Nickysanjana hernandez Prog [id number] N/A [facility] Assistance [facility] Nickysanjana hernandez Prog [id number] N/A History of Encounters Visit Date Visit Type Provider 02/13/2018 Office visit Justin Wooten MD 02/11/2018 Office visit Emma collier BRAND STRATEGIST 01/30/2018 Procedures Justin Wooten MD 01/18/2018 Office visit JUSTIN MCGILL 08/29/2013 [facility] Keesha Ojeda MD
--- OUTSIDE RECORDS SUMMARY | 2020-01-18 15:43 | XMS REPORT ---
Author Author Jeri EMANUEL [facility] Address [address] [place] [address] Care Team Providers Care Production Worker Name Role Phone JALEEL EMANUEL Unavailable PROBLEMS Type Condition ICD9-CM Code [id number] Code Onset Dates Condition S tatus SNOMED Code Problem Pain at surgical incision R20.8 Acti ve 81308200 Problem Interstitial cystitis N30.10 Active 465640595 Problem Ingrown left big toenail L60.0 Activ e 905271681 Problem Other chronic pain G89.29 Active 8 7536162 Problem Encounter for immunization Z23 Act krishna 299697062 Problem Pilonidal cyst L05.91 Active 01283 008 Problem Ulcer L98.499 Active 826810757 ALLERGIES Substance Reaction Event Type Date Status Tramadol HCl rash Drug Allergy Aug, Active Ketorolac Tromethamine rash Drug Allergy Aug, Activ e Bactrim shortness of breath Drug Allergy Aug, Active Azithromycin shortness of breath Drug Allergy Aug, Active latex rash Non Drug Allergy Aug, Active SOCIAL HISTORY Never Assessed PLAN OF CARE Activity Details Follow Up prn Reason: VITAL SIGNS Height 63 in 2016-08-31 Weight 228.5 lbs 2016-08-31 Temperature 97.7 degrees Fahrenheit 2016-08-31 Heart Rate 78 bpm 2016-08-31 Respiratory Rate 16 2016-08-31 BMI 40.47 kg/m2 2016-08-31 Blood pressure systolic 146 mmHg 2016-08-31 Blood pressure diastolic 80 mmHg 2016-08-31 MEDICATIONS Medication Instructions Dosage Frequency Start Date End Date Duration S tatus Lisinopril 20 MG Orally Once a day 1 tablet 24h Active Lasix 20 mg Orally Once a day 1 tablet 24h Aug, 30 d ay(s) Active Hydrocodone-Acetaminophen 7.5-325 MG Orally every 4 hrs as needed 1 tablet Jul, Active Keflex 500 mg Orally 4 times a day 1 capsule 6h Aug, Sep, 10 day(s) Active RESULTS No Results PROCEDURES No Known procedures IMMUNIZATIONS No Known Immunizations MEDICAL (GENERAL) HISTORY Type Description Date Medical History MRSA (methicillin resistant staph aureus ) culture positive Medical History Personal history of diseases of the skin and subcutaneous tissue Medical History Other specified postprocedural states Medical History Hidradenitis suppurativa Surgical History hysterectomy Surgical History partial hysterectomy Surgical History cholecystectomy Surgical History Hydronitis 60+ times Surgical History pilonidal cyst excision x4 Surgical History bladder surgery Surgical History heart cath 2017 Hospitalization History Hx of mycoplasma Hospitalization History Pilondial HX Hospitalization History child
--- OUTSIDE RECORDS SUMMARY | 2020-01-18 15:43 | XMS REPORT ---
Author Author Jeri Wooten [facility] Address [address] [place], [place] [address] Care Team Providers Care Legal Activity Adjudicator Name Role Phone Justin Wooten PCP Allergies and Adverse Reactions Name Reaction Notes tramadol Toradol Bactrim DS Zithromax Latex Plan of Treatment Not available. Medications Active Name Start Date Estimated Completion Date SIG Co mments lisinopril oral Lyrica oral estradiol 1 mg oral tablet 02/12/2018 02/07/2019 take 1 tablet (1 mg) by oral route once daily for 90 days [place] 5-325 mg oral tablet 02/27/2018 take 1 tablet by oral route every 4-6 hours as needed for pain Name Start Date Expiration Date SIG Comments rifampin 300 mg oral capsule 02/13/2018 02/23/2018 rober e 1 capsule by oral route 2 times a day for 10 days Discontinued Name Start Date Discontinued Date SIG Comments estradiol 1 mg oral tablet 02/11/2018 Hibiclens 4 % topical liquid 01/30/2018 02/11/2018 apply tariff counsel ally as directed Problem List Description Status [...] HC BMI BSA BMI Percentile O2 Sat(%) 02/27/2018 3:28:00 PM 150 mmHg 108 mmHg [...] 225 lbs 66 in 36.3156 kg/m 2.18 m2 98 % Social History Name [...] 7:57AM Postoperative Follow-up Feb 27 2018 3:28PM Payers Insurance Name Company Name Plan Name Plan Number Policy Number Trey cy Group Number Start Date [facility] - RHC - Community [facility] ealthCare RHC Comm [id number] [facility] [id number] N/A [facility] Assistance [facility] Medical Nicky tance Prog [id number] N/A [facility] Medical Nicky tance Prog [id number] N/A History of Encounters Visit Date Visit Type Provider 02/27/2018 Office visit Justin Wooten MD 02/21/2018 Surgery Justin Wooten MD 02/13/2018 Office visit Justin Wooten MD 02/11/2018 Office visit Emma collier APRN 01/30/2018 Procedures Justin Wooten MD 01/18/2018 Office visit JUSTIN MCGILL 08/29/2013 [facility] Keesha Ojeda MD
--- OUTSIDE RECORDS SUMMARY | 2020-01-18 15:43 | XMS REPORT ---
Author Author Jeri Wooten [facility] Address [address] [place], [place] [address] Care Team Providers Care Basket Mender Name Role Phone Justin Wooten PCP Allergies and Adverse Reactions Name Reaction Notes tramadol Toradol Bactrim DS Zithromax Latex Plan of Treatment Planned Activity Comments Planned Date Planned Time Plan/Goal Pap smear 02/12/2018 12:00 AM Gonorrhea 02/12/2018 12:00 AM Chlamydia 02/12/2018 12:00 AM Medications Active Name Start Date Estimated Completion Date SIG Co mments lisinopril oral Lyrica oral [place] 5-325 mg oral tablet 01/21/2018 take 1 [...] 4 % topical liquid 01/30/2018 02/11/2018 apply surgical instrument mechanic ally as directed Problem List Description Status [...] Ordered Description Order Status 02/12/2018 12:00 AM DETECT AGENT NOS DNA AMP Returned 02/12/2018 12:00 AM TRICHOMONAS VAGINALIS AMPLIF Returned Results Summary Not available. History Of Immunizations [...] of left axilla Feb 13 2018 2:06PM Payers Insurance Name Company Name Plan Name Plan Number Policy Number Trey cy Group Number Start Date [facility] - Community [facility] Comm [id number] N[facility] Plan of [id number] N/A [place] Medical Assistance [facility] Nicky tance Prog [id number] N/A [place] Medical Assistance [facility] Medical Nicky tance Prog [id number] N/A History of Encounters Visit Date Visit Type Provider 02/13/2018 Office visit Justin Wooten MD 02/11/2018 Office visit Emma collier TIP FINISHER 01/30/2018 Procedures Justin Wooten MD 01/18/2018 Office visit JUSTIN MCGILL 08/29/2013 [facility] Keesha Ojeda MD
--- OUTSIDE RECORDS SUMMARY | 2020-01-18 15:43 | XMS REPORT ---
Author Author Jeri SHAVER [facility] Address [address] [place] [address] Care Team Providers Care Director Of Psychiatry Name Role Phone MARY SHAVER Unavailable PROBLEMS Type Condition ICD9-CM Code MTI47-VU Code Onset Dates Condition S tatus SNOMED Code Problem Encounter for immunization Z23 Act krishna 102107543 Problem Pain at surgical incision R20.8 Acti ve 83122520 Assessment Palpitations R00.2 Mar, Active 803 02023 Assessment Chest pain in adult R07.9 Mar, Active 73875449 Assessment Dizziness R42 Mar, Active 465081 003 ALLERGIES Substance Reaction Event Type Date Status Tramadol HCl rash Drug Allergy Mar, Active Ketorolac Tromethamine rash Drug Allergy Mar, Activ e Bactrim shortness of breath Drug Allergy Mar, Active Azithromycin shortness of breath Drug Allergy Mar, Active latex rash Non Drug Allergy Mar, Active SOCIAL HISTORY No smoking Hx information available PLAN OF CARE VITAL SIGNS Height 63 in 2016-03-31 Weight 216.4 lbs 2016-03-31 Heart Rate 80 bpm 2016-03-31 Respiratory Rate 18 2016-03-31 BMI 38.33 kg/m2 2016-03-31 Blood pressure systolic 130 mmHg 2016-03-31 Blood pressure diastolic 90 mmHg 2016-03-31 MEDICATIONS Medication Instructions Dosage Frequency Start Date End Date Duration S tatus Zofran 4 MG Orally twice a day PRN 1 tablet Mar, Active Lisinopril 20 MG Orally Once a day 1 tablet 24h Active Hydrocodone-Acetaminophen 5-325 MG Orally every 6 hrs 1 tablet as n eeded 6h Mar, Active RESULTS Name Result Date Reference Range URINE DRUG SCREEN (IN HOUSE) 2016-03-31 Lot # [id number] Exp date 08/2016 Control POS COCAINE NEG AMPH NEG MTD NEG THC POS OPIATE POS BENZO NEG PCP NEG BAR POS OXY POS MAMP NEG TCA NEG MDMA NEG TSH 2016-03-31 TSH 0.782 0.450-4.500 CBC 2016-03-31 WBC 8.2 3.4-10.8 RBC 4.83 3.77-5.28 Hemoglobin 13.9 11.1-15.9 Hematocrit 42.6 34.0-46.6 MCV 88 79-97 MCH 28.8 26.6-33.0 MCHC 32.6 31.5-35.7 RDW 13.1 12.3-15.4 Platelets 265 150-379 Neutrophils 63 Lymphs 30 Monocytes 5 Eos 2 Basos 0 Immature Cells Neutrophils (Absolute) 5.1 1.4-7.0 Lymphs (Absolute) 2.4 0.7-3.1 Monocytes(Absolute) 0.4 0.1-0.9 Eos (Absolute) 0.2 0.0-0.4 Baso (Absolute) 0.0 0.0-0.2 Immature Granulocytes 0 Immature Grans (Abs) 0.0 0.0-0.1 NRBC Hematology Comments: CMP 2016-03-31 Glucose, Serum 80 65-99 BUN 7 6-20 Creatinine, Serum 0.68 0.57-1.00 eGFR If NonAfricn Am 122 >59 eGFR If Africn Am 141 >59 BUN/Creatinine Ratio 10 8-20 Sodium, Serum 145 134-144 Potassium, Serum 4.2 3.5-5.2 Chloride, Serum 105 97-108 Carbon Dioxide, Total 25 18-29 Calcium, Serum 9.4 8.7-10.2 Protein, Total, Serum 6.6 6.0-8.5 Albumin, Serum 4.2 3.5-5.5 Globulin, Total 2.4 1.5-4.5 A/G Ratio 1.8 1.1-2.5 Bilirubin, Total <0.2 0.0-1.2 Alkaline Phosphatase, S 66 39-117 AST (SGOT) 15 0-40 ALT (SGPT) 11 0-32 PROCEDURES Procedure Date Ordered Related Diagnosis Body Site HOLTER MONITOR (OUTPATIENT) 2016-03-31 N/A Office Visit, Est Pt., Level 3 Mar 31, 2016 DRUG SCREEN NON TLC DEVICES Mar 31, 2016 [facility] Mar [facility], 2016 VENIPUNCT, ROUTINE* Mar 31, 2016 IMMUNIZATIONS No Known Immunizations
--- OUTSIDE RECORDS SUMMARY | 2020-01-18 15:43 | XMS REPORT ---
Author Author Jeri Wooten [facility] Address [address] [place], [place] [address] Care Team Providers Care Concession Stand Attendant Name Role Phone Justin Wooten PCP Allergies [...] 14 days Diflucan 150 mg oral tablet 03/26/2018 04/04/2018 take 1 tablet (150 mg) by oral route once for 3 days [place] 5-325 mg oral tablet 04/02/2018 take 1 tablet by oral route every 4-6 hours as needed for pain Name Start Date Expiration Date SIG Comments rifampin 300 mg oral capsule 02/13/2018 02/23/2018 rober e 1 capsule by oral route 2 times a day for 10 days Discontinued Name Start Date Discontinued Date SIG Comments estradiol 1 mg oral tablet 02/11/2018 Hibiclens 4 % topical liquid 01/30/2018 02/11/2018 apply cooker pie filling ally as directed Problem List Description Status [...] HC BMI BSA BMI Percentile O2 Sat(%) 04/02/2018 3:36:00 PM 140 mmHg 110 mmHg [...] 10:31AM Postoperative Follow-up Apr 02 2018 3:37PM Payers Insurance Name Company Name Plan Name Plan Number Policy Number Trey cy Group Number Start Date [facility] - [facility] - Community [facility] ealthCare RHC Comm [id number] N/A [facility] Plan of [id number] N/A [facility] Medical Nicky tance Prog [id number] N/A [place] Medical Assistance [facility] Medical Nicky tance Prog [id number] N/A History of Encounters Visit Date Visit Type Provider 04/02/2018 Office visit Justin Wooten MD 03/26/2018 Procedures Justin Wooten MD 03/14/2018 Surgery Justin Wooten MD 03/12/2018 Office visit Justin Wooten MD 03/05/2018 Office visit Justin Wooten MD 02/27/2018 Office visit Justin Wooten MD 02/21/2018 Surgery Justin Wooten MD 02/13/2018 Office visit Justin Wooten MD 02/11/2018 Office visit Emma collier EXPERIMENTAL TECHNICIAN 01/30/2018 Procedures Justin Wooten MD 01/18/2018 Office visit JUSTIN MCGILL 08/29/2013 [facility] Keesha Ojeda MD
--- OUTSIDE RECORDS SUMMARY | 2020-01-18 15:43 | XMS REPORT ---
Author Author Jeri Nunn [facility] Address [address] [place], [place] [address] Care Team Providers Care Vice President Commercial Bank Name Role Phone Emma Nunn PCP Allergies and Adverse Reactions Name Reaction Notes tramadol Toradol Bactrim DS Zithromax Latex Plan of Treatment Planned Activity Comments Planned Date Planned Time Plan/Goal Pap smear 02/12/2018 12:00 AM Gonorrhea 02/12/2018 12:00 AM Chlamydia 02/12/2018 12:00 AM TRICHOMONAS AMPLIFIED 02/12/2018 12:00 AM TRICHOMONAS AMPLIFIED 02/12/2018 12:00 AM Medications Active Name Start Date Estimated Completion Date SIG Co mments lisinopril oral Lyrica oral [place] 5-325 mg oral tablet 01/21/2018 take 1 tablet by oral route every 4-6 hours as needed for pain estradiol 1 mg oral tablet 02/12/2018 02/07/2019 take 1 tablet (1 mg) by oral route once daily for 90 days Discontinued Name Start Date Discontinued Date SIG Comments estradiol 1 mg oral tablet 02/11/2018 Hibiclens 4 % topical liquid 01/30/2018 02/11/2018 apply dance choreographer ally as directed Problem List Description Status [...] HC BMI BSA BMI Percentile O2 Sat(%) 02/11/2018 2:50:00 PM 120 mmHg 70 mmHg 76 bpm 98.1 F 231 lbs 66 in 37.284 kg/m 2.2089 m 01/18/2018 10:04:00 AM 148 mmHg 88 mmHg 80 bpm 18 rpm 98.2 F 225 lbs 66 in 36.32 kg/m2 2.18 m2 98 % Social History Name Description Comments Tobacco Current every day smoker Alcohol Never Uses seatbelts History of Procedures Not available. Results Summary Not available. History Of Immunizations [...] 2018 2:58PM Obesity Feb 11 2018 2:58PM Payers Insurance Name Company Name Plan Name Plan Number Policy Number Trey cy Group Number Start Date [facility] [place] [facility] Comm [id number] N/A [place] Medical Assistance [facility] Medical Nicky tance Prog [id number] N/A [place] Medical Assistance [facility] Medical Nicky tance Prog [id number] N/A History of Encounters Visit Date Visit Type Provider 02/11/2018 Office visit Emma collier CUSTODIAL OFFICER 01/30/2018 Procedures Justin Wooten MD 01/18/2018 Office visit JUSTIN MCGILL 08/29/2013 [facility] Keesha Ojeda MD
--- OUTSIDE RECORDS SUMMARY | 2020-01-18 15:43 | XMS REPORT ---
Author Author Jeri Wooten [facility] Address [address] [place], [place] [id number] Care Team Providers Care Geography Department Chair Name Role Phone Justin Wooten PCP Allergies and Adverse Reactions Name Reaction Notes tramadol Toradol Bactrim DS Zithromax Latex Plan of Treatment Not available. Medications Active Name Start Date Estimated Completion Date SIG Co mments lisinopril oral Lyrica oral estradiol 1 mg oral tablet 02/12/2018 02/07/2019 take 1 tablet (1 mg) by oral route once daily for 90 days [place] 5-325 mg oral tablet 03/05/2018 take 1 tablet by oral route every 4-6 hours as needed for pain Name Start Date Expiration Date SIG Comments rifampin 300 mg oral capsule 02/13/2018 02/23/2018 rober e 1 capsule by oral route 2 times a day for 10 days Discontinued Name Start Date Discontinued Date SIG Comments estradiol 1 mg oral tablet 02/11/2018 Hibiclens 4 % topical liquid 01/30/2018 02/11/2018 apply digital production artist ally as directed Problem List Description Status [...] HC BMI BSA BMI Percentile O2 Sat(%) 03/12/2018 10:31:00 AM 140 mmHg 84 mmHg [...] 3:28PM Postoperative Follow-up Mar 12 2018 10:31AM Payers Insurance Name Company Name Plan Name Plan Number Policy Number Trey cy Group Number Start Date [facility] [employer] Comm [id number] N/A [facility] of [id number] N/A [place] [employer] [facility] Nicky [employer]ance Prog [id number] N/A [place] [employer] [facility] Nicky tance Prog [id number] N/A History of Encounters Visit Date Visit Type Provider 03/12/2018 Office visit Justin Wooten MD 03/05/2018 Office visit Justin Wooten MD 02/27/2018 Office visit Justin Wooten MD 02/21/2018 Surgery Justin Wooten MD 02/13/2018 Office visit Justin Wooten MD 02/11/2018 Office visit Emma collier CHILD PROTECTIVE SERVICES SOCIAL WORKER 01/30/2018 Procedures Justin Wooten MD 01/18/2018 Office visit JUSTIN MCGILL 08/29/2013 Hospital Keesha Ojeda MD
--- OUTSIDE RECORDS SUMMARY | 2020-01-18 15:43 | XMS REPORT ---
Author Author Jeri Wooten [facility] Address [address] [place], [place] [address] Care Team Providers Care Customs Opener Verifier Packer Name Role Phone Justin Wooten PCP Allergies and Adverse Reactions Name Reaction Notes tramadol Toradol Bactrim DS Zithromax Latex Plan of Treatment Not available. Medications Active Name Start Date Estimated Completion Date SIG Co mments lisinopril oral Lyrica oral estradiol 1 mg oral tablet [place] 5-325 mg oral tablet 01/21/2018 take 1 tablet by oral route every 4-6 hours as needed for pain Hibiclens 4 % topical liquid 01/30/2018 apply customer sales specialist ally as directed Problem List Description [...] HC BMI BSA BMI Percentile O2 Sat(%) 01/18/2018 10:04:00 AM 148 mmHg 88 mmHg [...] 2018 10:04AM Abscess Jan 30 2018 1:46PM Payers Insurance Name Company Name Plan Name Plan Number Policy Number Trey cy Group Number Start Date [facility] [id number] N/A [place] [employer] [facility] Nicky tance Prog [id number] N/A [place] [employer] [facility] Nicky tance Prog [id number] N/A History of Encounters Visit Date Visit Type Provider 01/30/2018 Procedures uJstin Wooten MD 01/18/2018 Office visit JUSTIN MCGILL 08/29/2013 Hospital Keesha Ojeda MD
--- OUTSIDE RECORDS SUMMARY | 2020-01-18 15:43 | XMS REPORT ---
Author Author Jeri SHAVER [facility] Address [address] [place] [address] Care Team Providers Care [employer] Consultant Name Role Phone MARY SHAVER Unavailable PROBLEMS Type Condition ICD9-CM Code [id number] Code Onset Dates Condition S tatus SNOMED Code Problem Pain at surgical incision R20.8 Acti ve 06620494 Problem Interstitial cystitis N30.10 Active 656583260 Problem Ingrown left big toenail L60.0 Activ e [id number] Problem Other chronic pain G89.29 Active 8 7722133 Problem Encounter for immunization Z23 Act krishna [id number] Problem Pilonidal cyst L05.91 Active 94255 008 Problem Ulcer L98.499 Active 982518447 ALLERGIES No Information SOCIAL HISTORY Never Assessed PLAN OF CARE VITAL SIGNS MEDICATIONS Medication Instructions Dosage Frequency Start Date End Date Duration S tatus Lasix 20 mg Orally Once a day 1 tablet 24h Aug, 30 d ay(s) Active Hydrocodone-Acetaminophen 7.5-325 MG Orally every 4 hrs as needed 1 tablet Jul, Aug, 05 days Active RESULTS No Results PROCEDURES No Known [...]
--- OUTSIDE RECORDS SUMMARY | 2020-01-18 15:43 | XMS REPORT ---
Author Author Jeri TALAVERA Organization [employer] Address Unknown Phone Unavailable Care Team Providers Care Odd Shoe Examiner Name Role Phone SILVANA TALAVERA CP Unavailable Allergies, Adverse Reactions, Alerts Substance Reaction Event Type Tramadol HCl rash Drug Allergy Ketorolac Tromethamine rash Drug Allergy Bactrim shortness of breath Drug Allergy Azithromycin shortness of breath Drug Allergy latex rash Non Drug Allergy Problems Problem Type Condition Code Onset Dates Condition Statu s Problem Pain at surgical incision R20.8 Ac tive Assessment Encounter for immunization Z23 A ctive Problem Encounter for immunization Z23 A ctive Assessment Pain at surgical incision R20.8 Ac tive Medications Medication Code System Code Instructions Start Date End Date Status Dosage Hydrocodone-Acetaminophen [facility] [address]-15 5-325 MG Orall y every 6 hrs Mar 29, 2016 1 tablet as needed Zofran [facility] [address]-81 4 MG Orally twice a day PRN Mar 28, 2016 1 tablet Procedures Procedure Coding System Code Date SINGLE IMMUNIZATION ADMIN CPT-4 46336 Mar 102015 Office Visit, Est Pt., Level 3 CPT-4 27286 S ept 2015 FLUARIX QUAD P-FREE 3 AND UP .50 2015 CPT-4 37045 Mar 29, 2016 Vital Signs Date/Time: Mar 29, 2016 Cardiac Monitoring Heart Rate 72 bpm Weight 214.4 lbs Height 63 in BMI 37.98 Index Blood Pressure Diastolic 82 mmHg Blood Pressure Systolic 132 mmHg Results No Known Results Immunizations Vaccine Administration Date FLUARIX QUAD P-FREE 3 AND UP .50 2015Mar 29, 2016 Summary Purpose [employer] Submission
--- OUTSIDE RECORDS SUMMARY | 2020-01-18 15:44 | XMS REPORT | Clinical Summary ---
Author Author Admin, Jeri Rashid Organization [facility] Address Unknown Phone Unavailable Allergies, Adverse Reactions, Alerts Allergy Name Reaction Description Start Date Severity Status Pr ovider BACTRIM Critical Active Kalpesh Dong MD ZITHROMAX rash all over Critical Active Darya H aubrey LATEX rash Moderate Active Darya Phelan man Conditions or Problems Problem Name Problem Code Onset Date Status Entry Date Provider Comment Standard Description Annotate , INCIDENTAL PROBLEM V22.2 Resolved 07/20 Abdirahman Rios MD state, incidental LARGE FOR GESTATIONAL AGE 656.60 Resolved Abdirahman Rios MD Excessive growth affec ting management of mother, unspecified as to episode of care or not applicable MASTALGIA 611.71 Resolved Abdirahman Rios MD Mastodynia BRONCHITIS NOT SPECIFIED ACUTE OR CHRONIC 490 Re solved Abdirahman Rios MD Bronchitis, not specified as acute or ch ronic FAMILY HISTORY OF ASTHMA V17.5 Correction Good Julian MD Family history of asthma DEPRESSION 311 Resolved Good Julian MD Depressive disorder, not elsewhere classified ABDOMINAL ABSCESS 682.2 Resolved Abdirahman Rios MD Cellulitis and abscess of trunk SINUSITIS, ACUTE 461.9 Resolved Abdirahman Rios MD Acute sinusitis, unspecified BACK PAIN 724.5 Resolved Abdirahman Rios MD Backache, unspecified , NORMAL V22.2 Resolved Abdirahman Rios MD state, incidental UNSPEC LOCAL INFECTION SKIN&SUBCUTANEOUS TISSUE 686.9 08/09 Resolved Abdirahman Rios MD Unspecified local in fection of skin and subcutaneous tissue OTH SPEC LOCAL INFECTIONS SKIN&SUBCUT TISSUE 686.8 2 Resolved Abdirahman Rios MD Other specified loca l infections of skin and subcutaneous tissue VAGINAL DISCHARGE 623.5 Resolved Abdirahman Rios MD Leukorrhea, not specified as infective URETHRITIS 597.80 Resolved Good Julian MD Urethritis, unspecified ABSCESS 682.9 Resolved Good Julian MD Cellulitis and abscess of unspecified sites PHARYNGITIS 462 Resolved Good Carr Acute pharyngitis HEALTH SCREENING V70.0 Resolved Good melchor MD Routine general medical examination at a health care facility EXAMINATION, NORMAL V24.2 Resolved 11/05 Good Julian MD Routine follow-up FAMILY PLANNING V25.09 Resolved Good sierra MD Encounter for other general counseling and advice on contraceptive management HIDRADENITIS SUPPURATIVA 705.83 Resolved Good Julian MD Hidradenitis 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IX 622.12 Resolved Good Julian MD Moderate dysplasia of cervix ENCOUNTER FOR THERAPEUTIC DRUG MONITORING V58.83 Resol sabrina Good Julian MD Encounter for therapeutic drug monito ring AMENORRHEA 626.0 Resolved Good Julian MD Absence of menstruation AFTERCARE FLW SURG TEETH ORL CAV&DIGESTV SYS NEC V58.75 02/05 Resolved Good Julian MD Aftercare followi ng surgery of the teeth,oral cavity and digestive system, NEC ACUTE BRONCHITIS 466.0 Resolved Good melchor MD Acute bronchitis JAW PAIN 526.9 Resolved Good Julian MD Unspecified disease of the jaws DENTAL CARIES 521.00 Resolved Good Julian MD Dental caries, unspecified ABSCESS, INNER THIGH 682.6 Resolved Moni Julian MD Cellulitis and abscess of leg, except fo ot NEUROPATHY 355.9 Resolved Good Julian MD Mononeuritis of unspecified site FH DIABETES V18.0 Correction Good Julian MD Family history of diabetes mellitus AFTERCARE FOLLOW SURGERY SKIN&SUBCUT TISSUE NEC V58.77 11/26 Resolved Good Julian MD Aftercare followi ng surgery of the skin and subcutaneous tissue, NEC UPPER RESPIRATORY INFECTION (URI) 465.9 Resolved 20 20/10/29 Good Julian MD Acute upper respiratory infections of un specified site HEADACHE 784.0 Resolved Good Julian MD Headache HAND PAIN, RIGHT 729.5 Resolved Good melchor MD Pain in limb BRONCHITIS, ACUTE 466.0 Resolved Good espitia MD Acute bronchitis BACK PAIN 724.5 Resolved Good Julian MD Backache, unspecified BACK PAIN, LUMBAR, CHRONIC 724.2 Correction Brigitte Martin Lumbago Dysmenorrhea, severe 625.3 Resolved Kalpesh bernal MD Dysmenorrhea Abnormal vaginal bleeding 626.9 Resolved Kalpesh Dong MD Unspecified disorders of men struation and other abnormal bleeding from female genital tract AFTERCARE FOLLOW SURGERY SYSTEM NEC V58.76 Resolved Good Julian MD Aftercare following surgery of the genitourinary system, NEC Dysuria 788.1 Resolved Good Julian MD Dysuria Hypoglycemia 251.2 Resolved Abdirahman Rios MD Hypoglycemia, unspecified Anxiety 300.00 Active Joann Grace RMMichaela Anxiety state, unspecified Swelling of limb 729.81 Resolved Good melchor MD Swelling of limb Hand pain, right 729.5 Resolved Good melchor MD Pain in limb Pilonidal cyst 685.1 Resolved Good collier MD Pilonidal cyst without mention of abscess Aftercare following surgery of the skin and subcutaneous tis braden, NEC V58.77 Resolved Good Julian MD After care following surgery of the skin and subcutaneous tissue, NEC Open wound of buttock, complicated 877.1 Resolved 2 Abdirahman Rios MD Open wound of buttock, complicated Cellulitis and abscess of trunk 682.2 Resolved 2014 Abdirahman Rios MD Cellulitis and abscess of trunk FH Diabetes V18.0 Resolved Abdirahman Rios MD Family history of diabetes mellitus Pelvic pain 789.09 Resolved Abdirahman Rios MD Abdominal pain, other specified site; multiple sites Vaccination against influenza V04.81 Resolved 08/24 Abdirahman Rios MD Need for prophylactic vaccination and in oculation against influenza Contact dermatitis due to poison marilee 692.6 Resolved Abdirahman Rios MD Contact dermatitis and other eczema due to plants [except food] Back pain, chronic 724.5 Active Shola MCGILL Backache, unspecified Back strain 847.9 Resolved Abdirahman Rios MD Sprain of unspecified site of back Sinusitis, acute 461.9 Resolved Abdirahman Rios MD Acute sinusitis, unspecified Hidradenitis 705.83 Active Hira Moser APRN Hidradenitis AFTERCARE FOLLOW SURGERY SKIN&SUBCUT TISSUE NEC V58.77 07/28 Resolved Abdirahman Rios MD Aftercare following surgery of the skin and subcutaneous tissue, NEC Impetigo 684 Resolved Abdirahman Rios MD Impetigo Headache, chronic 784.0 Active Abdirahman Rios MD Headache Health screening V70.0 Active Abdirahman Carr Routine general medical examination at a health care facility Pelvic Pain-Female 625.9 Active Bj collier MD Unspecified symptom associated with female genital organs AFTERCARE FOLLOW SURGERY SKIN&SUBCUT TISSUE NEC V58.77 08/27 Resolved Abdirahman Rios MD Aftercare following surgery of the skin and subcutaneous tissue, NEC Abscess, perirectal 566 Active 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[employer] Abscess of anal and rectal regions Hypertriglyceridemia 272.1 Active Abdirahman restrepo MD Pure hyperglyceridemia FH Diabetes V18.0 Active Kalpesh Dong MD Family history of diabetes mellitus Medication monitoring V58.69 Active Gabriela Goodwin RMA Long-term (current) use of other medications , INCIDENTAL PROBLEM ICD-V22.2 Inacti ve Abdirahman Rios MD LARGE FOR GESTATIONAL AGE ICD-656.60 Inactive Abdirahman Rios MD MASTALGIA ICD-611.71 Inactive Abdirahman Carr BRONCHITIS NOT SPECIFIED ACUTE OR CHRONIC ICD-490 8 Inactive Abdirahman Rios MD FAMILY HISTORY OF ASTHMA ICD-V17.5 Inactive Moni Julian MD DEPRESSION ICD-311 Inactive Good sierra MD ABDOMINAL ABSCESS ICD-682.2 Inactive Abdirahman sanchez MD SINUSITIS, ACUTE ICD-461.9 Inactive Abdirahman Casas MD BACK PAIN ICD-724.5 Inactive Abdirahman Rios MD , NORMAL ICD-V22.2 Inactive Abdirahman sanchez MD UNSPEC LOCAL INFECTION SKIN&SUBCUTANEOUS TISSUE ICD-686.9 08/09 Inactive Abdirahman Rios MD OTH SPEC LOCAL INFECTIONS SKIN&SUBCUT TISSUE ICD-686.8 2 Inactive Abdirahman Rios MD VAGINAL DISCHARGE ICD-623.5 Inactive Abdirahman sanchez MD URETHRITIS ICD-597.80 Inactive Good melchor MD ABSCESS ICD-682.9 Inactive Good collier MD PHARYNGITIS ICD-462 Inactive Good melchor MD HEALTH SCREENING ICD-V70.0 Inactive Good Julian MD EXAMINATION, NORMAL ICD-V24.2 Inact krishna Good Julian MD FAMILY PLANNING ICD-V25.09 Inactive Good Julian MD HIDRADENITIS SUPPURATIVA ICD-705.83 Inactive Good Julian MD 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 Stormy Julian MD ENCOUNTER FOR THERAPEUTIC DRUG MONITORING ICD-V58.83 Inactive Good Julian MD AMENORRHEA ICD-626.0 Inactive Good sierra MD AFTERCARE FLW SURG TEETH ORL CAV&DIGESTV SYS NEC ICD-V58.75 Inactive Good Julian MD ACUTE BRONCHITIS ICD-466.0 Inactive Good Julian MD JAW PAIN ICD-526.9 Inactive Good collier MD DENTAL CARIES ICD-521.00 Inactive Good Matos MD ABSCESS, INNER THIGH ICD-682.6 Inactive Moni Julian MD NEUROPATHY ICD-355.9 Inactive Good sierra MD FH DIABETES ICD-V18.0 Inactive Good Julian MD AFTERCARE FOLLOW SURGERY SKIN&SUBCUT TISSUE NEC ICD-V58.77 Inactive Good Julian MD UPPER RESPIRATORY INFECTION (URI) ICD-465.9 In active Good Julian MD HEADACHE ICD-784.0 Inactive Good collier MD HAND PAIN, RIGHT ICD-729.5 Inactive Good Julian MD BRONCHITIS, ACUTE ICD-466.0 Inactive Good Julian MD BACK PAIN ICD-724.5 Inactive Good collier MD BACK PAIN, LUMBAR, CHRONIC ICD-724.2 Inactive John Martin Dysmenorrhea, severe ICD-625.3 Inactive Kalpesh Dong MD Abnormal vaginal bleeding ICD-626.9 Inactive Kalpesh Dong MD AFTERCARE FOLLOW SURGERY SYSTEM NEC ICD-V58.76 20 20/10/29 Inactive Good Julian MD Dysuria ICD-788.1 Inactive Good collier MD Hypoglycemia ICD-251.2 Inactive Abdirahman Rios MD Swelling of limb ICD-729.81 Inactive Good Julian MD Hand pain, right ICD-729.5 Inactive Good Julian MD Pilonidal cyst ICD-685.1 Inactive Good Matos MD Aftercare following surgery of the skin and subcutaneous tis braden, NEC ICD-V58.77 Inactive Good Julian MD Open wound of buttock, complicated ICD-877.1 I nactive Abdirahman Rios MD Cellulitis and abscess of trunk ICD-682.2 Inac tive Abdirahman Rios MD FH Diabetes ICD-V18.0 Inactive Abdirahman Rios MD 201 11/08/15 Pelvic pain ICD-789.09 Inactive Abdirahman Rios MD Vaccination against influenza ICD-V04.81 Inacti ve Abdirahman Rios MD Contact dermatitis due to poison marilee ICD-692.6 Inactive Abdirahman Rios MD Back strain ICD-847.9 Inactive Abdirahman Rios MD Sinusitis, acute ICD-461.9 Inactive Abdirahman Casas MD AFTERCARE FOLLOW SURGERY SKIN&SUBCUT TISSUE NEC ICD-V58.77 Inactive Abdirahman Rios MD Impetigo ICD-684 Inactive Abdirahman Rios MD 08/24 AFTERCARE FOLLOW SURGERY SKIN&SUBCUT TISSUE NEC ICD-V58.77 Inactive Abdirahman Rios MD Medication List Medication Instructions Start Date Stop Date Generic Name NDC Status Provider Patient Instruction PERCOCET 10-325 MG TABS 1 tab by mouth every 6 hours , use sparingly for severe pain OXYCODONE-ACETAMINOPHEN 52091683693 No Longer A ctive Abdirahman Rios MD Active GLUCOPHAGE 500 MG ORAL TABS one by mouth 3 times a day METFORMIN HCL 89939655218 Active Kalpesh Dong MD Active IBUPROFEN 600 MG ORAL TABS 1 by mouth twice a day IBUPROFEN 83508468299 Active ERNIE Higuera Active TRAZODONE HCL 100 MG TAB 0.5 to 1 po qHS PRN Insomnia TRAZODONE HCL 39431695487 Active Abdirahman Rios MD Active CYMBALTA 30 MG CPEP 1 cap by mouth daily DULOXE CLEO HCL 38889001669 Active Abdirahman Rios MD Active EMLA 2.5-2.5 % EXT CREA apply to skin lesion q 6 hours, prn 2014 LIDOCAINE-PRILOCAINE 45945432757 No Longer Active Abdirahman Rios MD Active HYDROCODONE-ACETAMINOPHEN 5-325 MG TABS 1 po q6hr PRN pain HYDROCODONE-ACETAMINOPHEN 50347962578 Active Abdirahman Rios MD Active PERCOCET 10-325 MG ORAL TABS 1 every 4 hours as needed OXYCODONE-ACETAMINOPHEN 10687793846 No Longer Active Abdirahman Rios MD Active [id number] 50-325-40 MG ORAL CAPS 1-2 po TID AL N Headache [id number] 81606609057 Active Abdirahman Rios MD Active AUGMENTIN 875-125 MG TAB 1 tab by mouth twice daily with food 20 21/10/13 AMOXICILLIN-POT CLAVULANATE 65039188073 No Longer Active Ursula jasmina Karmenl [employer] Active PROAIR HFA 108 (90 BASE) MCG/ACT AERS 2 puff q 4-6 hrs PRN 01/24 ALBUTEROL SULFATE 95955357782 No Longer Active Kalpesh Dong MD Active ALPRAZOLAM 0.5 MG TABS 1 po BID PRN Anxiety ALPRA ZOLAM 91408568699 Active Abdirahman Rios MD Active CYCLOBENZAPRINE HCL 10 MG TABS 1 tablet by mouth three times daily as needed for muscle spasm/pain CYCLOBENZAPRINE HCL 92869268063 Active Abdirahman Rios MD Active PREDNISONE 20 MG TAB 2 tabs daily for 3 days, 1 t ab daily for 3 days, 1/2 tab daily for 2 days PREDNISONE 38504950596 No Longer Active Abdirahman Rios MD Active KEFLEX 500 MG CAP 1 po qid CEPHALEXIN 286747588 20 No Longer Active Kalpesh Dong MD Active PERCOCET 5-325 MG TAB 1 every 6 hours as needed OXYCODONE-ACETAMINOPHEN 65472693931 No Longer Active Shola MCGILL Active LC-5 LIDOCAINE 5 % CREA apply 1 time daily to affected area 2013 LIDOCAINE (ANORECTAL) 80653952648 No Longer Active Hira muniz [employer] Active HYDROCODONE-ACETAMINOPHEN 10-325 MG TABS 1 by mouth ev chaka 8 hours as needed for pain HYDROCODONE-ACETAMINOPHEN 03440617858 No Longer Active Jillina Frazell [employer] Active LORATADINE 10 MG TABS 1 tablet by mouth daily L ORATADINE 04655825731 No Longer Active Jillina Frazell [employer] Active DIFLUCAN 150 MG TAB 1 qODay x 2 doses FLUCONAZO LE 00828701066 No Longer Active Jillina Frazell [employer] Active CYCLOBENZAPRINE HCL 10 MG TABS 1/2 - 1 tab PO tid PRN back p ain, muscle spasm CYCLOBENZAPRINE HCL 50231233170 No Longer Active Karen herson Frazell SALES [employer] Active AUGMENTIN 875-125 MG TAB 1 tab by mouth twice daily with food 20 22/05/07 AMOXICILLIN-POT CLAVULANATE 27613775539 No Longer Active Loida Rios MD Active MOBIC 15 MG TABS 1 tab daily MELOXICAM 041502559 14 No Longer Active Abdirahman Rios MD Active PERCOCET 7.5-325 MG TABS 1 PO tid PRN pain OXYCODONE-ACETAMINOPHEN 74816731622 No Longer Active Abdirahman Rios MD Active LIDODERM 5 % PTCH One patch to painful area AL N. On for 12 hrs, off for 12 hrs. LIDOCAINE 18168340668 No Longer Active Abdirahman Rios MD Active PERCOCET 7.5-325 MG TABS 1 PO q 8 hrs PRN pain OXYCODONE-ACETAMINOPHEN 68131384326 No Longer Active Shola MCGILL Active HYDROCODONE-ACETAMINOPHEN 7.5-325 MG TABS 1 by mouth e very 6 hours as needed for pain HYDROCODONE-ACETAMINOPHEN 44894688297 No Longer Active Good Julian MD Active CLINDAMYCIN HCL 300 MG CAPS 1 po QID x 7 days CLINDAMYCIN HCL 85031164151 No Longer Active Abdirahman Rios MD Activ e BACTRIM DS 800-160 MG TABS 1 po BID x 7 days 5 SULFAMETHOXAZOLE-TRIMETHOPRIM 32451413617 No Longer Active Abdirahman Rios MD Active ENDOCET 10-325 MG TABS 1 q 6 hr prn OXYCODONE-ACETAMINOPHEN 48781461588 No Longer Active Abdirahman Rios MD Active IBUPROFEN 800 MG TABS 1 tid prn IBUPROFEN 566150 09611 No Longer Active Abdirahman Rios MD Active BACTRIM DS 800-160 MG TABS by mouth twice a day 11/05 SULFAMETHOXAZOLE-TRIMETHOPRIM 95410093452 No Longer Active Good Julian MD Active HYDROCODONE-ACETAMINOPHEN 7.5-325 MG TABS 1 four times a day as needed for pain HYDROCODONE-ACETAMINOPHEN 54402627366 No Longer Activ e Good Julian MD Active KEFLEX 500 MG CAP 1 tab po tid CEPHALEXIN 854848 04649 No Longer Active Matthewllherson Moser APRN Active IBUPROFEN 800 MG TAB 1 pill three times daily as needed for pain IBUPROFEN 21989746888 No Longer Active Kalpesh Dong MD Active PROMETHAZINE-CODEINE 6.25-10 MG/5ML SYRP 1 tsp every 6 hrs prn c ough PROMETHAZINE-CODEINE 08990491533 No Longer Active Kalpesh Carr Active HYDROCODONE-ACETAMINOPHEN 5-325 MG TABS 1 tab by mouth every 6 hours as needed HYDROCODONE-ACETAMINOPHEN 10393644836 No Longer Activ e Shola MCGILL Active CEPHALEXIN 500 MG CAPS 1 PO bid x 7 days CEPHAL EXIN 04957176426 No Longer Active Shola MCGILL Active BACTRIM DS 800-160 MG TAB 1 tab by mouth twice daily 2 TRIMETHOPRIM-SULFAMETHOXAZOLE 93809939343 No Longer Active Kalpesh Dong MD Active HYDROCODONE-ACETAMINOPHEN 5-325 MG TABS 1 PO tid PRN pain 5 HYDROCODONE-ACETAMINOPHEN 25833515536 No Longer Active Abhinav Galvan MD Active IMPLANON 68 MG IMPL IMPLANTED IN LEFT ARM ETONO GESTREL 35002306351 No Longer Active Matthewllherson Moser APRN Active AMOXICILLIN 500 MG TABS 2 tabs PO bid x 10 d AM OXICILLIN 64763023162 No Longer Active Kalpesh Dong MD Active LEVAQUIN 500 MG TABS 1 PO q day x 7 days LEVOFL OXACIN 17485108738 No Longer Active Shola MCGILL Active AMITRIPTYLINE HCL 25 MG TAB 1 tab by mouth daily 60 minutes before bedtime AMITRIPTYLINE HCL 31297382749 No Longer Active Shola MCGILL Active LORTAB 5 5-500 MG TABS 1/2 to 1 tablet by mouth go ry 6 hours as needed for pain HYDROCODONE-ACETAMINOPHEN 05170841398 No Longer Active Shola MCGILL Active CEPHALEXIN 500 MG TABS Take one by mouth four times daily, morning, noon, early evening and bedtime. CEPHALEXIN 19402218992 No Long er Active Hira Moser APRN Active TYLENOL/CODEINE #3 300-30 MG TAB 1-2 po q6hr PRN Pain ACETAMINOPHEN-CODEINE 34340767862 No Longer Active Edilberto Marino DO Active PRISTIQ 50 MG [id number] 1 po qd DESVENLAFAXI NE SUCCINATE 06679843022 No Longer Active Edilberto Marino DO Active PENICILLIN V POTASSIUM 500 MG TAB 1 four times a day 2 PENICILLIN V POTASSIUM 93242482973 No Longer Active Edilberto Marino DO Active DOXYCYCLINE HYCLATE 100 MG CAPS Take one (1) tablet by mouth twice a day DOXYCYCLINE HYCLATE 36134563845 No Longer Active Ronnie Galvan MD Active HYDROCODONE-ACETAMINOPHEN 5-325 MG TABS 1 po q 6hr PRN Pain 2011 HYDROCODONE-ACETAMINOPHEN 97635022289 No Longer Active Jerson Perez RN Active BACTRIM DS 800-160 MG TAB 1 tab by mouth twice daily 2 TRIMETHOPRIM-SULFAMETHOXAZOLE 51561466922 No Longer Active Kalpesh Dong MD Active LORTAB 5 5-500 MG TABS 1/2 to 1 tablet by mouth go ry 4 hours as needed for pain HYDROCODONE-ACETAMINOPHEN 55148746498 No Longer Active Kalpesh Dong MD Active GENERESS FE 0.8-25 MG-MCG CHEW Take one by mouth daily NORETHIN-ETH ESTRADIOL-FE 30942054486 No Longer Active Kalpesh Dong MD Active HYDROCODONE-ACETAMINOPHEN 7.5-500 MG TABS 1-2 every 4 hours as needed HYDROCODONE-ACETAMINOPHEN 51888599821 No Longer Activ e Kalpesh Dong MD Active FERROUS SULFATE 325 (65 FE) MG TABS 1 tablet by mouth twice yung y FERROUS SULFATE 11756557890 No Longer Active Kalpesh Dong MD Active IBUPROFEN 600 MG TAB 1 po q6-8hr PRN IBUPROFEN 27186190210 No Longer Active Kalpesh Dong MD Active SPIRONOLACTONE 25 MG TAB 1 tablet by mouth daily 01/22 SPIRONOLACTONE 55381195880 No Longer Active Kalpesh Dong MD Acti ve HYDROCODONE-ACETAMINOPHEN 7.5-325 MG TABS 1 po QID PRN Pain 2011 HYDROCODONE-ACETAMINOPHEN 25390691153 No Longer Active Kalpesh Dong MD Active CLINDAMYCIN HCL 300 MG CAPS 1 po q6hr x 7 days CLINDAMYCIN HCL 45250018344 No Longer Active Edilberto Marino DO Active PREDNISONE 20 MG TAB 2 tabs daily for 4 days, 1 t ab daily for 4 days, 1/2 tab daily for 4 days PREDNISONE 63852108602 No Longer Active Edilberto Marino DO Active PERCOCET 5-325 MG TABS 1 tablet by mouth every 6 hours as ne eded for pain OXYCODONE-ACETAMINOPHEN 25059854491 No Longer Active Abdirahman Rios MD Active VITAMINS TABS Take one by mouth daily MV & MIN W/FE-FA TABS 91667611866 No Longer Active Abdirahman Rios MD Active LUIS 3-0.02 MG TABS 1 tablet by mouth daily as directed DROSPIRENONE-ETHINYL ESTRADIOL 16976543622 No Longer Active Abdirahman Rios MD Active LORATADINE 10 MG TABS 1 tablet by mouth daily L ORATADINE 08173339217 No Longer Active Kalpesh Dong MD Active HYDROCODONE-ACETAMINOPHEN 5-325 MG TABS 1 po q 6hr PRN Pain 2010 HYDROCODONE-ACETAMINOPHEN 58900342906 No Longer Active Edilberto Marino DO Active BACTRIM DS 800-160 MG TAB 1 tab by mouth twice daily 2 TRIMETHOPRIM-SULFAMETHOXAZOLE 08705397256 No Longer Active Abdirahman Rios MD Active 28-0.8 MG TABS Take one by mouth daily 09/20 VIT-FE FUMARATE-FA 86874116271 No Longer Active Abdirahman Rios MD Active CIPRO 500 MG TAB 1 tablet by mouth twice daily CIPROFLOXACIN HCL 72365099899 No Longer Active Abdirahman Rios MD Active BENADRYL 25 MG CAP 1 po q8hr PRN Congestion DIPHENHYDRAMINE HCL 03965375720 No Longer Active Abdirahman Rios MD Active ZOLOFT 50 MG TAB 1 po qd SERTRALINE HCL 005409 13200 No Longer Active Abdirahman Rios MD Active AMOXICILLIN 875 MG TABS 1 tab by mouth twice daily 201 08/09/13 AMOXICILLIN 77622150855 No Longer Active Abdirahman Rios MD Activ e AMOXICILLIN 875 MG TABS 1 tab by mouth twice daily 201 07/19/27 AMOXICILLIN 43656477222 No Longer Active Abdirahman Rios MD Activ e BACTRIM DS 800-160 MG TAB 2 tab by mouth twice daily 2 TRIMETHOPRIM-SULFAMETHOXAZOLE 92851503957 No Longer Active Abdirahman Rios MD Active KEFLEX 500 MG CAP 1 po tid x 10 days CEPHALEXIN 98890160073 No Longer Active Abdirahman Rios MD Active AMOXICILLIN 875 MG TABS 1 tab by mouth twice daily 201 07/18/07 AMOXICILLIN 63567042989 No Longer Active Abdirahman Rios MD Activ e BACTRIM DS 800-160 MG TAB 2 tab by mouth twice daily 2 BACTRIM DS 800-160 MG TAB TRIMETHOPRIM-SULFAMETHOXAZOLE Inactive ZOLOFT 50 MG TAB 1 po qd ZOLOFT 50 MG TAB 3129 41 SERTRALINE HCL Inactive BENADRYL 25 MG CAP 1 po q8hr PRN Congestion BENADRYL 25 MG CAP 7835112 DIPHENHYDRAMINE HCL Inactive 28-0.8 MG TABS Take one by mouth daily 09/20 28-0.8 MG TABS VIT-FE FUMARATE-FA Inactive HYDROCODONE-ACETAMINOPHEN 5-325 MG TABS 1 po q 6hr PRN Pain 2010 HYDROCODONE-ACETAMINOPHEN 5-325 MG TABS 798742 HYDROCODONE-ACETAMINOPHEN Inactive LORATADINE 10 MG TABS 1 tablet by mouth daily LORATADINE 10 MG TABS 841816 LORATADINE Inactive LUIS 3-0.02 MG TABS 1 tablet by mouth daily as directed LUIS 3-0.02 MG TABS DROSPIRENONE-ETHINYL ESTRADIOL Inactive VITAMINS TABS Take one by mouth daily VITAMINS TABS MV & MIN W/FE-FA TABS Inactive PERCOCET 5-325 MG TABS 1 tablet by mouth every 6 hours as ne eded for pain PERCOCET 5-325 MG TABS 5371102 OXYCODONE-ACETAMIN OPHEN Inactive PREDNISONE 20 MG TAB 2 tabs daily for 4 days, 1 t ab daily for 4 days, 1/2 tab daily for 4 days PREDNISONE 20 MG TAB 832322 PREDNISON E Inactive CLINDAMYCIN HCL 300 MG CAPS 1 po q6hr x 7 days CLINDAMYCIN HCL 300 MG CAPS 015240 CLINDAMYCIN HCL Inactive HYDROCODONE-ACETAMINOPHEN 7.5-325 MG TABS 1 po QID PRN Pain 2011 HYDROCODONE-ACETAMINOPHEN 7.5-325 MG TABS 624933 HYDROCODONE-ACETAMINOPHEN Inactive SPIRONOLACTONE 25 MG TAB 1 tablet by mouth daily 01/22 SPIRONOLACTONE 25 MG TAB 576418 SPIRONOLACTONE Inactive IBUPROFEN 600 MG TAB 1 po q6-8hr PRN IBUPROFEN 600 MG TAB 931617 IBUPROFEN Inactive FERROUS SULFATE 325 (65 FE) MG TABS 1 tablet by mouth twice yung y FERROUS SULFATE 325 (65 FE) MG TABS 181732 FERROUS SULF ATE Inactive HYDROCODONE-ACETAMINOPHEN 7.5-500 MG TABS 1-2 every 4 hours as needed HYDROCODONE-ACETAMINOPHEN 7.5-500 MG TABS HYDROCODONE-ACETAMINOPHEN Inactive GENERESS FE 0.8-25 MG-MCG CHEW Take one by mouth daily GENERESS FE 0.8-25 MG-MCG CHEW 1402151 NORETHIN-ETH ESTRADIOL-FE Inactive LORTAB 5 5-500 MG TABS 1/2 to 1 tablet by mouth go ry 4 hours as needed for pain LORTAB 5 5-500 MG TABS HYDROCODONE-A CETAMINOPHEN Inactive BACTRIM DS 800-160 MG TAB 1 tab by mouth twice daily 2 BACTRIM DS 800-160 MG TAB TRIMETHOPRIM-SULFAMETHOXAZOLE Inac tive HYDROCODONE-ACETAMINOPHEN 5-325 MG TABS 1 po q 6hr PRN Pain 2011 HYDROCODONE-ACETAMINOPHEN 5-325 MG TABS 030879 HYDROCODONE-ACETAMINOPHEN Inactive DOXYCYCLINE HYCLATE 100 MG CAPS Take one (1) tablet by mouth twice a day DOXYCYCLINE HYCLATE 100 MG CAPS 7375161 DOXYCYCLINE HYCLATE Inactive PENICILLIN V POTASSIUM 500 MG TAB 1 four times a day 2 PENICILLIN V POTASSIUM 500 MG TAB 542614 PENICILLIN V POTASSIUM Pep ctive PRISTIQ 50 MG [id number] 1 po qd PRISTIQ 50 MG [id number] DESVENLAFAXINE SUCCINATE Inactive TYLENOL/CODEINE #3 300-30 MG TAB 1-2 po q6hr PRN Pain TYLENOL/CODEINE #3 300-30 MG TAB 589189 ACETAMINOPHEN-CODEINE Inact krishna CEPHALEXIN 500 MG TABS Take one by mouth four times daily, morning, noon, early evening and bedtime. CEPHALEXIN 500 MG TABS 901726 CEPHALEXIN Inactive LORTAB 5 5-500 MG TABS 1/2 to 1 tablet by mouth go ry 6 hours as needed for pain LORTAB 5 5-500 MG TABS HYDROCODONE-A CETAMINOPHEN Inactive AMITRIPTYLINE HCL 25 MG TAB 1 tab by mouth daily 60 minutes before bedtime AMITRIPTYLINE HCL 25 MG TAB 668367 AMITRIPTYLINE HCL Inactive AMOXICILLIN 500 MG TABS 2 tabs PO bid x 10 d 7 AMOXICILLIN 500 MG TABS 493438 AMOXICILLIN Inactive IMPLANON 68 MG IMPL IMPLANTED IN LEFT ARM IMPLANON 68 MG IMPL ETONOGESTREL Inactive HYDROCODONE-ACETAMINOPHEN 5-325 MG TABS 1 PO tid PRN pain 5 HYDROCODONE-ACETAMINOPHEN 5-325 MG TABS 079090 HYDROCODONE-ACETAMIN OPHEN Inactive BACTRIM DS 800-160 MG TAB 1 tab by mouth twice daily 2 BACTRIM DS 800-160 MG TAB TRIMETHOPRIM-SULFAMETHOXAZOLE Inac tive CEPHALEXIN 500 MG CAPS 1 PO bid x 7 days CEPHALEXIN 500 MG CAPS [id number] CEPHALEXIN Inactive HYDROCODONE-ACETAMINOPHEN 5-325 MG TABS 1 tab by mouth every 6 hours as needed HYDROCODONE-ACETAMINOPHEN 5-325 MG TABS 278683 HYDROCODONE-ACETAMINOPHEN Inactive PROMETHAZINE-CODEINE 6.25-10 MG/5ML SYRP 1 tsp every 6 hrs prn c ough PROMETHAZINE-CODEINE 6.25-10 MG/5ML SYRP 118390 PROMETH AZINE-CODEINE Inactive IBUPROFEN 800 MG TAB 1 pill three times daily as needed for pain IBUPROFEN 800 MG TAB IBUPROFEN Inactive KEFLEX 500 MG CAP 1 tab po tid KEFLEX 500 MG CAP [id number] CEPHALEXIN Inactive HYDROCODONE-ACETAMINOPHEN 7.5-325 MG TABS 1 four times a day as needed for pain HYDROCODONE-ACETAMINOPHEN 7.5-325 MG TABS 258060 HYDROCODONE-ACETAMINOPHEN Inactive BACTRIM DS 800-160 MG TABS by mouth twice a day 11/05 BACTRIM DS 800-160 MG TABS SULFAMETHOXAZOLE-TRIMETHOPRIM Inactive IBUPROFEN 800 MG TABS 1 tid prn IBUPROFEN 800 MG TABS 202694 IBUPROFEN Inactive ENDOCET 10-325 MG TABS 1 q 6 hr prn ENDOC ET 10-325 MG TABS [id number] OXYCODONE-ACETAMINOPHEN Inactive HYDROCODONE-ACETAMINOPHEN 7.5-325 MG TABS 1 by mouth e very 6 hours as needed for pain HYDROCODONE-ACETAMINOPHEN 7.5-325 MG TABS 619068 HYDROCODONE-ACETAMINOPHEN Inactive PERCOCET 7.5-325 MG TABS 1 PO q 8 hrs PRN pain PERCOCET 7.5-325 MG TABS [id number] OXYCODONE-ACETAMINOPHEN Inactive LIDODERM 5 % PTCH One patch to painful area AL N. On for 12 hrs, off for 12 hrs. LIDODERM 5 % PTCH [id number] LIDOCAINE Inactiv e PERCOCET 7.5-325 MG TABS 1 PO tid PRN pain PERCOCET 7.5- 325 MG TABS 4503254 OXYCODONE-ACETAMINOPHEN Inactive MOBIC 15 MG TABS 1 tab daily MOBIC 15 MG TABS 15 2695 MELOXICAM Inactive CYCLOBENZAPRINE HCL 10 MG TABS 1/2 - 1 tab PO tid PRN back p ain, muscle spasm CYCLOBENZAPRINE HCL 10 MG TABS 571538 CYCLOBENZA JOSEPH HCL Inactive LORATADINE 10 MG TABS 1 tablet by mouth daily LORATADINE 10 MG TABS 619361 LORATADINE Inactive HYDROCODONE-ACETAMINOPHEN 10-325 MG TABS 1 by mouth ev chaka 8 hours as needed for pain HYDROCODONE-ACETAMINOPHEN 10-325 MG TABS 450855 HYDROCODONE-ACETAMINOPHEN Inactive LC-5 LIDOCAINE 5 % CREA apply 1 time daily to affected area 2013 LC-5 LIDOCAINE 5 % CREA LIDOCAINE (ANORECTAL) In active PERCOCET 5-325 MG TAB 1 every 6 hours as needed PERCOCET 5-325 MG TAB [id number] OXYCODONE-ACETAMINOPHEN Inactive KEFLEX 500 MG CAP 1 po qid KEFLEX 500 MG CAP 30 9114 CEPHALEXIN Inactive PROAIR HFA 108 (90 BASE) MCG/ACT AERS 2 puff q 4-6 hrs PRN 01/24 PROAIR HFA 108 (90 BASE) MCG/ACT AERS ALBUTEROL SULFATE Inactive PERCOCET 10-325 MG ORAL TABS 1 every 4 hours as needed PERCOCET 10-325 MG ORAL TABS 2449434 OXYCODONE-ACETAMINOPHEN Inactiv e EMLA 2.5-2.5 % EXT CREA apply to skin lesion q 6 hours, prn 2014 EMLA 2.5-2.5 % EXT CREA 283047 LIDOCAINE-PRILOCAINE Pep ctive PERCOCET 10-325 MG TABS 1 tab by mouth every 6 hours , use sparingly for severe pain PERCOCET 10-325 MG TABS [id number] OXYCODONE-ACETAMINOPHEN Inactive AMOXICILLIN 875 MG TABS 1 tab by mouth twice daily 201 07/18/07 AMOXICILLIN 875 MG TABS 091879 AMOXICILLIN Inactive KEFLEX 500 MG CAP 1 po tid x 10 days KEFLEX 500 MG CAP 144667 CEPHALEXIN Inactive AMOXICILLIN 875 MG TABS 1 tab by mouth twice daily 201 07/19/27 AMOXICILLIN 875 MG TABS 728647 AMOXICILLIN Inactive AMOXICILLIN 875 MG TABS 1 tab by mouth twice daily 201 08/09/13 AMOXICILLIN 875 MG TABS 507528 AMOXICILLIN Inactive CIPRO 500 MG TAB 1 tablet by mouth twice daily CIPRO 500 MG TAB 989459 CIPROFLOXACIN HCL Inactive BACTRIM DS 800-160 MG TAB 1 tab by mouth twice daily 2 BACTRIM DS 800-160 MG TAB TRIMETHOPRIM-SULFAMETHOXAZOLE Inac tive LEVAQUIN 500 MG TABS 1 PO q day x 7 days LEVAQUIN 500 MG TABS 971657 LEVOFLOXACIN Inactive CLINDAMYCIN HCL 300 MG CAPS 1 po QID x 7 days CLINDAMYCIN HCL 300 MG CAPS 604828 CLINDAMYCIN HCL Inactive AUGMENTIN 875-125 MG TAB 1 tab by mouth twice daily with food 20 22/05/07 AUGMENTIN 875-125 MG TAB 479038 AMOXICILLIN-POT [place] Inactive DIFLUCAN 150 MG TAB 1 qODay x 2 doses DIFLUCAN 150 MG TAB 031793 FLUCONAZOLE Inactive PREDNISONE 20 MG TAB 2 tabs daily for 3 days, 1 t ab daily for 3 days, 1/2 tab daily for 2 days PREDNISONE 20 MG TAB 249114 PREDNISON E Inactive AUGMENTIN 875-125 MG TAB 1 tab by mouth twice daily with food 20 21/10/13 AUGMENTIN 875-125 MG TAB 094765 AMOXICILLIN-POT [place] Inactive Advance Directives Directive Description Start Date PERMISSION TO SHARE Immunizations Vaccine Administration Date Value Standard Alf cription Seasonal influenza vaccine, injectable, containing preservative, for > 3 years old (Afluria, FluLaval, Fluzone, Fluvirin, Fluarix, Agriflu(>= 18 yo)) Fluzone (>3 yrs.) [[id number]] Influenza, seasonal, inject able Seasonal influenza vaccine, injectable, preservative free, for > 3 years old (Afluria, FluLaval, Fluzone, Fluvirin, Fluarix, Agriflu(>= 18 yo)) Fluzone preservative free (>3 yrs.) [[id number]] Influenza, seasonal, injectable, preservative free Seasonal influenza vaccine, injectable, containing preservative, for > 3 years old (Afluria, FluLaval, Fluzone, Fluvirin, Fluarix, Agriflu(>= 18 yo)) Fluzone (>3 yrs.) [[id number]] Influenza, seasonal, inject able Seasonal influenza vaccine, injectable, containing preservative, for > 3 years old (Afluria, FluLaval, Fluzone, Fluvirin, Fluarix, Agriflu(>= 18 yo)) Fluzone (>3 yrs.) [SYS291] Influenza, seasonal, inject able dT (Diphtheria and Tetanus) booster given Histor ica Td(adult) unspecified formulation Vital Signs Date Name Value Unit Range Description blood pressure, diastolic - 8462-4 99 mm[Hg] BP ribeiro blood pressure, systolic - 8480-6 132 mm[Hg] BP sys pulse rate E&M - 8867-4 93 /min H eart rate temperature E&M 98 [degF] Body temp erature weight E&M - 3141-9 228.4 [lb_av] Weigh t Measured blood pressure, diastolic - 8462-4 88 mm[Hg] BP ribeiro blood pressure, systolic - 8480-6 137 mm[Hg] BP sys pulse rate E&M - 8867-4 83 /min H eart rate temperature E&M 98.4 [degF] Body temp erature weight E&M - 3141-9 230 [lb_av] Weigh t Measured blood pressure, diastolic - 8462-4 84 mm[Hg] BP ribeiro blood pressure, systolic - 8480-6 132 mm[Hg] BP sys pulse rate E&M - 8867-4 103 /min H eart rate temperature E&M 98.2 [degF] Body temp erature weight E&M - 3141-9 230 [lb_av] Weigh t Measured blood pressure, diastolic - 8462-4 96 mm[Hg] BP ribeiro blood pressure, systolic - 8480-6 149 mm[Hg] BP sys pulse rate E&M - 8867-4 88 /min H eart rate temperature E&M 96.9 [degF] Body temp erature weight E&M - 3141-9 229 [lb_av] Weigh t Measured blood pressure, diastolic - 8462-4 86 mm[Hg] BP ribeiro blood pressure, systolic - 8480-6 134 mm[Hg] BP sys pulse rate E&M - 8867-4 102 /min H eart rate temperature E&M 98.4 [degF] Body temp erature weight E&M - 3141-9 231.8 [lb_av] Weigh t Measured blood pressure, diastolic - 8462-4 82 mm[Hg] BP ribeiro blood pressure, systolic - 8480-6 132 mm[Hg] BP sys pulse rate E&M - 8867-4 88 /min H eart rate temperature E&M 98.7 [degF] Body temp erature weight E&M - 3141-9 236.4 [lb_av] Weigh t Measured blood pressure, diastolic - 8462-4 84 mm[Hg] BP ribeiro blood pressure, systolic - 8480-6 126 mm[Hg] BP sys pulse rate E&M - 8867-4 94 /min H eart rate temperature E&M 99.2 [degF] Body temp erature weight E&M - 3141-9 233 [lb_av] Weigh t Measured blood pressure, diastolic - 8462-4 85 mm[Hg] BP ribeiro blood pressure, systolic - 8480-6 133 mm[Hg] BP sys pulse rate E&M - 8867-4 85 /min H eart rate temperature E&M 98.5 [degF] Body temp erature weight E&M - 3141-9 238.8 [lb_av] Weigh t Measured blood pressure, diastolic - 8462-4 83 mm[Hg] BP ribeiro blood pressure, systolic - 8480-6 141 mm[Hg] BP sys pulse rate E&M - 8867-4 90 /min H eart rate temperature E&M 97.5 [degF] Body temp erature weight E&M - 3141-9 238 [lb_av] Weigh t Measured blood pressure, diastolic - 8462-4 88 mm[Hg] BP ribeiro blood pressure, systolic - 8480-6 132 mm[Hg] BP sys pulse rate E&M - 8867-4 89 /min H eart rate temperature E&M 96.8 [degF] Body temp erature weight E&M - 3141-9 237 [lb_av] Weigh t Measured blood pressure, diastolic - 8462-4 73 mm[Hg] BP ribeiro blood pressure, systolic - 8480-6 127 mm[Hg] BP sys pulse rate E&M - 8867-4 87 /min H eart rate temperature E&M 97.6 [degF] Body temp erature weight E&M - 3141-9 232.7 [lb_av] Weigh t Measured blood pressure, diastolic - 8462-4 81 mm[Hg] BP ribeiro blood pressure, systolic - 8480-6 126 mm[Hg] BP sys pulse rate E&M - 8867-4 71 /min H eart rate temperature E&M 97.3 [degF] Body temp erature weight E&M - 3141-9 235 [lb_av] Weigh t Measured blood pressure, diastolic - 8462-4 79 mm[Hg] BP rbieiro blood pressure, systolic - 8480-6 117 mm[Hg] BP sys pulse rate E&M - 8867-4 76 /min H eart rate temperature E&M 98.5 [degF] Body temp erature weight E&M - 3141-9 224 [lb_av] Weigh t Measured blood pressure, diastolic - 8462-4 84 mm[Hg] BP ribeiro blood pressure, systolic - 8480-6 138 mm[Hg] BP sys pulse rate E&M - 8867-4 84 /min H eart rate temperature E&M 98.2 [degF] Body temp erature weight E&M - 3141-9 232 [lb_av] Weigh t Measured blood pressure, diastolic - 8462-4 88 mm[Hg] BP ribeiro blood pressure, systolic - 8480-6 131 mm[Hg] BP sys pulse rate E&M - 8867-4 87 /min H eart rate temperature E&M 98.6 [degF] Body temp erature weight E&M - 3141-9 232 [lb_av] Weigh t Measured blood pressure, diastolic - 8462-4 87 mm[Hg] BP ribeiro blood pressure, systolic - 8480-6 159 mm[Hg] BP sys pulse rate E&M - 8867-4 80 /min H eart rate temperature E&M 98.1 [degF] Body temp erature weight E&M - 3141-9 233 [lb_av] Weigh t Measured blood pressure, diastolic - 8462-4 79 mm[Hg] BP ribeiro blood pressure, systolic - 8480-6 118 mm[Hg] BP sys pulse rate E&M - 8867-4 89 /min H eart rate temperature E&M 98 [degF] Body temp erature weight E&M - 3141-9 238.8 [lb_av] Weigh t Measured blood pressure, diastolic - 8462-4 82 mm[Hg] BP ribeiro blood pressure, systolic - 8480-6 131 mm[Hg] BP sys pulse rate E&M - 8867-4 87 /min H eart rate temperature E&M 97.6 [degF] Body temp erature weight E&M - 3141-9 234 [lb_av] Weigh t Measured blood pressure, diastolic - 8462-4 92 mm[Hg] BP ribeiro blood pressure, systolic - 8480-6 147 mm[Hg] BP sys pulse rate E&M - 8867-4 96 /min H eart rate temperature E&M 96.4 [degF] Body temp erature weight E&M - 3141-9 238 [lb_av] Weigh t Measured blood pressure, diastolic - 8462-4 91 mm[Hg] BP ribeiro blood pressure, systolic - 8480-6 139 mm[Hg] BP sys pulse rate E&M - 8867-4 92 /min H eart rate temperature E&M 98.1 [degF] Body temp erature weight E&M - 3141-9 239.2 [lb_av] Weigh t Measured blood pressure, diastolic - 8462-4 78 mm[Hg] BP ribeiro blood pressure, systolic - 8480-6 104 mm[Hg] BP sys height E&M - 8302-2 65 [in_us] Bdy h eight pulse rate E&M - 8867-4 72 /min H eart rate temperature E&M 96.5 [degF] Body temp erature weight E&M - 3141-9 232 [lb_av] Weigh t Measured blood pressure, diastolic - 8462-4 79 mm[Hg] BP ribeiro blood pressure, systolic - 8480-6 124 mm[Hg] BP sys pulse rate E&M - 8867-4 103 /min H eart rate temperature E&M 98.6 [degF] Body temp erature weight E&M - 3141-9 234 [lb_av] Weigh t Measured blood pressure, diastolic - 8462-4 83 mm[Hg] BP ribeiro blood pressure, systolic - 8480-6 144 mm[Hg] BP sys pulse rate E&M - 8867-4 76 /min H eart rate temperature E&M 97.2 [degF] Body temp erature weight E&M - 3141-9 239 [lb_av] Weigh t Measured blood pressure, diastolic - 8462-4 82 mm[Hg] BP ribeiro blood pressure, systolic - 8480-6 123 mm[Hg] BP sys pulse rate E&M - 8867-4 72 /min H eart rate temperature E&M 98.1 [degF] Body temp erature weight E&M - 3141-9 241 [lb_av] Weigh t Measured blood pressure, diastolic - 8462-4 80 mm[Hg] BP ribeiro blood pressure, systolic - 8480-6 119 mm[Hg] BP sys pulse rate E&M - 8867-4 92 /min H eart rate temperature E&M 97.1 [degF] Body temp erature weight E&M - 3141-9 235.7 [lb_av] Weigh t Measured Diagnostic Results Date Name Value Unit Range Description Lab Report: CBC, Comp. Metabolic Panel - Chemistry sodium, serum 142 mmol/L 303-887 6045/05/12 potassium, serum 4.8 mmol/L 3.5-5.2 chloride, serum 103 mmol/L 98-107 carbon dioxide, venous blood 29.5 mmol/L 21.0-32 .0 blood glucose 95 mg/dL 65-110 urea nitrogen, blood 6 mg/dL 7-18 creatinine, serum 0.70 mg/dL 0.60-1.30 alanine aminotransferase (SGPT), serum 27 U/L 12-78 aspartate aminotransferase (SGOT), serum 16 U/L 15-37 calcium, serum 8.7 mg/dL 8.5-10.1 bilirubin, serum, total 0.10 mg/dL 0.00-1.00 Lab Report: CBC, Comp. Metabolic Panel - Hematology leukocyte count, blood 8.9 10^3/MM^3 10*3/mm3 4.6-10.2 erythrocyte (RBC) count 5.25 10^6/MM^3 10*6/mm3 4.04-5.4 8 hemoglobin, blood 15.8 g/dL 12.0-16.0 hematocrit, blood 45.8 % 36.0-46.0 mean corpuscular volume, RBC 87 fL 80-97 mean corpuscular hemoglobin, RBC 30.1 pg 27. 0-31.2 mean corpuscular hemoglobin concentration, RBC 34.6 G/DL % 31.8-35.4 red blood cell distribution width 14.1 % 11 .6-14.8 platelet count 291 10^3/MM^3 10*3/mm3 142-424 Lab Report: LDL DIRECT - Chemistry LDL cholesterol, serum 90.00 mg/dL 5.00-130.00 Lab Report: Lipid Panel - Chemistry cholesterol, serum 165 mg/dL 531-356 5874/05/12 triglyceride, serum, fasting 524 mg/dL 30-200 HDL cholesterol, serum 24 mg/dL 32-96 Office Visit: CN bladder problems - Mariah jesus protein, total urine random negative mg/dL RBC, urine, dipstick negative Office Visit: CN bladder problems - Uri nalysis ketones, urine, by test strip negative bilirubin, urine negative glucose, urine, semiquantitative negative pH, urine, semiquantitative 5 specific gravity, urine 1.030 urinalysis, routine Clean Catch urine color yellow appearance, urine clear leukocyte esterase, urine, by dipstick negative nitrite, urine, semiquantitative negative urobilinogen, urine, semiquantitative (dipstick) 0.2 protein, urine, semiquantitative (dipstick) negative Encounters Code Encounter Date Provider Facility CPT-57240 Level 2 Est. Patient 16:33:01 CDT Kalpesh goins MD [facility] CPT-52087 Level 4 Est. Patient 16:44:56 CDT Abdirahman Rios MD [facility] CPT-66882 Level 2 Est. Patient 07:49:32 CDT Kalpesh goins MD [facility] CPT-31387 Level 3 New Patient 15:47:11 EPITAXIAL REACTOR TECHNICIAN Bj huber MD [facility] CPT-29648 Level 4 Est. Patient 14:37:38 EPITAXIAL REACTOR TECHNICIAN Abdirahman Rios MD [facility] CPT-08468 Level 2 Est. Patient 13:32:17 EPITAXIAL REACTOR TECHNICIAN Kalpesh goins MD [facility] CPT-84191 Level 3 Est. Patient 17:32:57 EPITAXIAL REACTOR TECHNICIAN Edilberto tiwari DO [facility] CPT-22510 Level 3 Est. Patient 17:22:33 EPITAXIAL REACTOR TECHNICIAN Edilberto tiwari DO [facility] CPT-82482 Level 2 Est. Patient 16:57:09 EPITAXIAL REACTOR TECHNICIAN Kalpesh goins MD [facility] CPT-42505 Level 3 Est. Patient 14:03:08 EPITAXIAL REACTOR TECHNICIAN Abdirahman Rios MD [facility] CPT-02516 Level 3 Est. Patient 18:12:34 CDT Shola Wright [facility] CPT-58994 Level 3 Est. Patient 19:34:46 CDT Shola Wright [facility] CPT-47899 Level 3 Est. Patient 14:19:37 CDT Abdirahman Rios MD [facility] CPT-26088 Level 3 Est. Patient 14:11:58 CDT Kalpesh goins MD [facility]-14611 Level 3 Est. Patient 16:50:00 [facility]T [facility] Level 3 Est. Patient 17:11:32 EPITAXIAL REACTOR TECHNICIAN Brandie bates MD, PhD [facility]-51311 Level 3 Est. Patient 16:31:47 EPITAXIAL REACTOR TECHNICIAN Shola Wright [facility] CPT-53329 Level 3 Est. Patient 17:51:10 EPITAXIAL REACTOR TECHNICIAN Abhinav Galvan MD [facility] CPT-32639 Level 4 Est. Patient 12:54:56 EPITAXIAL REACTOR TECHNICIAN Kalpesh goins MD [facility] CPT-50060 Level 4 Est. Patient 12:53:56 EPITAXIAL REACTOR TECHNICIAN Kalpesh goins MD [facility]-70555 Level 3 Est. Patient 17:56:58 CDT Shola Wright [facility] CPT-33485 Level 3 Est. Patient 14:26:20 CDT Janak butcher [facility] CPT-87034 Level 3 Est. Patient 09:38:41 CDT Shola MCGILL [facility] CPT-09767 Level 3 Est. Patient 14:45:26 CDT Edilberto tiwari [facility] CPT-33099 Level 3 Est. Patient 10:51:33 [facility] Level 3 Est. Patient 11:57:55 EPITAXIAL REACTOR TECHNICIAN Shola MCGILL [facility] CPT-41841 Level 3 Est. Patient 09:53:33 EPITAXIAL REACTOR TECHNICIAN Edilberto tiwari [facility] CPT-80488 Level 3 Est. Patient 14:42:54 EPITAXIAL REACTOR TECHNICIAN Abhinav Galvan MD [facility]-77219 Level 3 Est. Patient 15:10:02 CDT Janak butcher [facility] CPT-24396 Level 3 Est. Patient 15:20:20 CDT Theo dennis MD [facility] CPT-67429 Level 2 Est. Patient 14:08:57 CDT Kalpesh goins MD [facility]-48787 Level 3 Est. Patient 13:56:19 CDT Abdirahman Rios MD [facility] CPT-37954 Level 3 Est. Patient 13:59:37 CDT Abdirahman Rios MD [facility] CPT-33008 Level 2 Est. Patient 14:44:59 CDT Kalpesh goins MD [facility] CPT-09536 Level 3 Est. Patient 06:06:23 CDT Edilberto tiwari [facility] CPT-45171 Level 3 Est. Patient 15:23:54 CDT Abdirahman Rios MD [facility] CPT-57984 Level 3 Est. Patient 15:43:49 CDT Abdirahman Rios MD [facility] CPT-16713 Level 3 Est. Patient 12:46:47 EPITAXIAL REACTOR TECHNICIAN Abdirahman Rios MD [facility] CPT-35403 Level 3 Est. Patient 08:13:35 EPITAXIAL REACTOR TECHNICIAN Abdirahman Rios MD [facility] CPT-15337 Level 2 Est. Patient 09:36:42 EPITAXIAL REACTOR TECHNICIAN Abdirahman Rios MD [facility] CPT-22889 Level 3 Est. Patient 10:56:43 CDT Abdirahman Rios MD [facility] CPT-10021 Level 3 Est. Patient 18:24:52 CDT Abdirahman Rios MD [facility] CPT-84761 Level 3 Est. Patient 13:27:22 CDT Abdirahman Rios MD [facility] Procedures Code Procedure Name Date Entry Date Standard Desc ription CPT-13772 Postop F/U Visit 15:27:43 CDT CPT-40431 Postop F/U Visit 14:40:59 CDT CPT-12534 Postop F/U Visit 15:02:46 CDT CPT-95962 Postop F/U Visit 11:29:00 EPITAXIAL REACTOR TECHNICIAN CPT-J0696 Rocephin 1000 mg (Ceftriaxone) 17:22:33 EPITAXIAL REACTOR TECHNICIAN CPT-96004 Postop F/U Visit 18:41:07 EPITAXIAL REACTOR TECHNICIAN CPT-64516 Postop F/U Visit 08:19:08 EPITAXIAL REACTOR TECHNICIAN CPT-34598 Immunization Single Admin 16:41:53 CDT 2013 CPT-43120 Fluzone Quadrivalent Intramuscular Suspe nsion 0.5 ML 16:41:53 CDT CPT-OV Office Visit 16:39:18 CDT CPT-OV Office Visit 16:16:36 CDT CPT-OV Office Visit 15:34:48 CDT CPT-04167 Postop F/U Visit 14:50:12 CDT CPT-88280 Postop F/U Visit 14:41:10 CDT CPT-09490 Venipuncture Draw Fee 11:38:04 EPITAXIAL REACTOR TECHNICIAN CPT-16286 Postop F/U Visit 19:02:59 EPITAXIAL REACTOR TECHNICIAN CPT-12926 Postop F/U Visit 12:04:54 EPITAXIAL REACTOR TECHNICIAN CPT-32165 Administration single or combination vac cine inc oral 15:56:43 CDT CPT-08286 Influenza split virus > age 3 15:56:43 CDT CPT-85281 Hand comp min 3V 14:25:19 CDT CPT-84972 Postop F/U Visit 21:40:51 CDT CPT-84649 Postop F/U Visit 10:58:43 CDT CPT-06787 Administration single or combination vac cine inc oral 12:33:54 EPITAXIAL REACTOR TECHNICIAN CPT-11665 Influenza Preservative Free split virus >age 3 12:33:54 EPITAXIAL REACTOR TECHNICIAN CPT-17637 Administration single or combination vac cine inc oral 09:30:51 CDT CPT-48756 Influenza split virus > age 3 09:30:51 CDT CPT-82678 Postop F/U Visit 15:14:53 CDT CPT-43745 Postop F/U Visit 13:50:14 CDT CPT-55684 Postop F/U Visit 13:34:52 CDT CPT-OV Office Visit 16:55:03 CDT CPT-51475 [place] of cervix w bx ECC 13:32:50 CDT 10/19 CPT-J1885 Toradol 60 mg (Ketorolac) 15:31:59 CDT 2011 CPT-J1885 Toradol 60 mg (Ketorolac) 15:23:54 CDT 2011 CPT-53993 Visit 11:34:37 EPITAXIAL REACTOR TECHNICIAN CPT-33755 Visit 10:52:39 EPITAXIAL REACTOR TECHNICIAN CPT-66949 Visit 10:12:02 EPITAXIAL REACTOR TECHNICIAN CPT-62326 Visit 11:22:43 EPITAXIAL REACTOR TECHNICIAN CPT-75028 Visit 11:24:12 EPITAXIAL REACTOR TECHNICIAN CPT-25684 Visit 10:47:05 EPITAXIAL REACTOR TECHNICIAN CPT-OV Office Visit 10:26:16 EPITAXIAL REACTOR TECHNICIAN CPT-OV Office Visit 15:34:31 EPITAXIAL REACTOR TECHNICIAN CPT-44489 Visit 10:42:08 EPITAXIAL REACTOR TECHNICIAN CPT-33812 Visit 10:52:45 EPITAXIAL REACTOR TECHNICIAN CPT-000 Give Appropriate Flu Vaccine 16:56:41 CDT 2 CPT-02108 Administration single or combination vac cine inc oral 10:33:21 CDT CPT-10121 Influenza split virus > age 3 10:33:21 CDT CPT-18405 Visit 13:23:09 CDT CPT-76747 Visit 18:24:52 CDT CPT-03386 [facility] OB comp > 14 weeks 12:07:49 CDT 04/07
--- OUTSIDE RECORDS SUMMARY | 2020-01-18 15:44 | XMS REPORT | Clinical Summary ---
Author Author Admin, Jeri Rashid Organization [facility] Address Unknown Phone Unavailable Allergies, Adverse Reactions, [...] NEC Abscess, perirectal 566 Active Hira roman LABEL TACKER Abscess of anal and rectal regions Hypertriglyceridemia 272.1 Active Abdirahman restrepo MD Pure hyperglyceridemia FH Diabetes V18.0 Active Kalpesh Dong MD Family history of diabetes mellitus , INCIDENTAL PROBLEM ICD-V22.2 Inacti ve Abdirahman [...] krishna Good Julian MD FAMILY PLANNING ICD-V25.09 Jose M Julian MD HIDRADENITIS SUPPURATIVA ICD-705.83 Inactive Good [...] Generic Name NDC Status Provider Patient Instruction GLUCOPHAGE 500 MG ORAL TABS one by mouth 3 times a day METFORMIN HCL 66031228843 Active Kalpesh Dong MD Active IBUPROFEN 600 MG ORAL TABS 1 by mouth twice a day IBUPROFEN 61665781146 Active ERNIE Higuera Active PERCOCET 10-325 MG TABS 1 tab by mouth every 6 hours , use sparingly for severe pain OXYCODONE-ACETAMINOPHEN 49339980588 Active Hira Moser LABEL TACKER Active TRAZODONE HCL 100 MG TAB 0.5 to 1 po qHS PRN Insomnia TRAZODONE HCL 83167147728 Active Abdirahman Rios MD Active CYMBALTA 30 MG CPEP 1 cap by mouth daily DULOXE CLEO HCL 99344218523 Active Abdirahman Rios MD Active EMLA 2.5-2.5 % EXT CREA apply to skin lesion q 6 hours, prn 2014 LIDOCAINE-PRILOCAINE 81571006238 No Longer Active Abdirahman Rios MD Active HYDROCODONE-ACETAMINOPHEN 5-325 MG TABS 1 po q6hr PRN pain HYDROCODONE-ACETAMINOPHEN 98288444289 Active Abdirahman Rios MD Active PERCOCET 10-325 MG ORAL TABS 1 every 4 hours as needed OXYCODONE-ACETAMINOPHEN 04131491242 No Longer Active Abdirahman Rios MD Active [id number] 50-325-40 MG ORAL CAPS 1-2 po TID [place] N Headache [id number] 23239928732 Active Abdirhaman Rios MD Active AUGMENTIN 875-125 MG TAB 1 tab by mouth twice daily with food 20 21/10/13 AMOXICILLIN-POT CLAVULANATE 60973579093 No Longer Active Ursula jasmina Karmenl LABEL TACKER Active PROAIR HFA 108 (90 BASE) MCG/ACT AERS 2 puff q 4-6 hrs PRN 01/24 ALBUTEROL SULFATE 14983199419 No Longer Active Kalpesh Dong MD Active ALPRAZOLAM 0.5 MG TABS 1 po BID PRN Anxiety ALPRA ZOLAM 32008212832 Active Abdirahman Rios MD Active CYCLOBENZAPRINE HCL 10 MG TABS 1 tablet by mouth three times daily as needed for muscle spasm/pain CYCLOBENZAPRINE HCL 70993582608 Active Abdirahman Rios MD Active PREDNISONE 20 MG TAB 2 tabs daily for 3 days, 1 t ab daily for 3 days, 1/2 tab daily for 2 days PREDNISONE 20155537885 No Longer Active Abdirahman Rios MD Active KEFLEX 500 MG CAP 1 po qid CEPHALEXIN 608296242 20 No Longer Active Kalpesh Dong MD Active PERCOCET 5-325 MG TAB 1 every 6 hours as needed OXYCODONE-ACETAMINOPHEN 57346828522 No Longer Active Shola MCGILL Active LC-5 LIDOCAINE 5 % CREA apply 1 time daily to affected area 2013 LIDOCAINE (ANORECTAL) 28345077354 No Longer Active Hira muniz LABEL TACKER Active HYDROCODONE-ACETAMINOPHEN 10-325 MG TABS 1 by mouth ev chaka 8 hours as needed for pain HYDROCODONE-ACETAMINOPHEN 85674342584 No Longer Active Jillina Frazell LABEL TACKER Active LORATADINE 10 MG TABS 1 tablet by mouth daily L ORATADINE 66476399095 No Longer Active Jillina Frazell LABEL TACKER Active DIFLUCAN 150 MG TAB 1 qODay x 2 doses FLUCONAZO LE 29106428555 No Longer Active Jillina Frazell LABEL TACKER Active CYCLOBENZAPRINE HCL 10 MG TABS 1/2 - 1 tab PO tid PRN back p ain, muscle spasm CYCLOBENZAPRINE HCL 30962068752 No Longer Active Karen Moser LABEL TACKER Active AUGMENTIN 875-125 MG TAB 1 tab by mouth twice daily with food 20 22/05/07 AMOXICILLIN-POT CLAVULANATE 77545275270 No Longer Active Loida Rios MD Active MOBIC 15 MG TABS 1 tab daily MELOXICAM 085209958 14 No Longer Active Abdirahman Rios MD Active PERCOCET 7.5-325 MG TABS 1 PO tid PRN pain OXYCODONE-ACETAMINOPHEN 45180070651 No Longer Active Abdirahman Rios MD Active LIDODERM 5 % PTCH One patch to painful area [place] N. On for 12 hrs, off for 12 hrs. LIDOCAINE 42333297980 No Longer Active Abdirahman Rios MD Active PERCOCET 7.5-325 MG TABS 1 PO q 8 hrs PRN pain OXYCODONE-ACETAMINOPHEN 87975133426 No Longer Active Shola MCGILL Active HYDROCODONE-ACETAMINOPHEN 7.5-325 MG TABS 1 by mouth e very 6 hours as needed for pain HYDROCODONE-ACETAMINOPHEN 46998391629 No Longer Active Good Julian MD Active CLINDAMYCIN HCL 300 MG CAPS 1 po QID x 7 days CLINDAMYCIN HCL 76689298069 No Longer Active Abdirahman Rios MD Activ e BACTRIM DS 800-160 MG TABS 1 po BID x 7 days 5 SULFAMETHOXAZOLE-TRIMETHOPRIM 92198488041 No Longer Active Abdirahman Rios MD Active ENDOCET 10-325 MG TABS 1 q 6 hr prn OXYCODONE-ACETAMINOPHEN 58374117953 No Longer Active Abdirahman Rios MD Active IBUPROFEN 800 MG TABS 1 tid prn IBUPROFEN 639727 73011 No Longer Active Abdirahman Rios MD Active BACTRIM DS 800-160 MG TABS by mouth twice a day 11/05 SULFAMETHOXAZOLE-TRIMETHOPRIM 68559394880 No Longer Active Good Julian MD Active HYDROCODONE-ACETAMINOPHEN 7.5-325 MG TABS 1 four times a day as needed for pain HYDROCODONE-ACETAMINOPHEN 77746226263 No Longer Activ e Good Julian MD Active KEFLEX 500 MG CAP 1 tab po tid CEPHALEXIN 725276 95935 No Longer Active Hira Moser APRN Active IBUPROFEN 800 MG TAB 1 pill three times daily as needed for pain IBUPROFEN 96970685666 No Longer Active Kalpesh Dong MD Active PROMETHAZINE-CODEINE 6.25-10 MG/5ML SYRP 1 tsp every 6 hrs prn c ough PROMETHAZINE-CODEINE 90849454656 No Longer Active Kalpesh Carr Active HYDROCODONE-ACETAMINOPHEN 5-325 MG TABS 1 tab by mouth every 6 hours as needed HYDROCODONE-ACETAMINOPHEN 31387501145 No Longer Activ e Shola MCGILL Active CEPHALEXIN 500 MG CAPS 1 PO bid x 7 days CEPHAL EXIN 68166380425 No Longer Active Shola MCGILL Active BACTRIM DS 800-160 MG TAB 1 tab by mouth twice daily 2 TRIMETHOPRIM-SULFAMETHOXAZOLE 86274691986 No Longer Active Kalpesh Dong MD Active HYDROCODONE-ACETAMINOPHEN 5-325 MG TABS 1 PO tid PRN pain 5 HYDROCODONE-ACETAMINOPHEN 08959341104 No Longer Active Abhinav Galvan MD Active IMPLANON 68 MG IMPL IMPLANTED IN LEFT ARM ETONO GESTREL 37493602683 No Longer Active Hira Moser APRN Active AMOXICILLIN 500 MG TABS 2 tabs PO bid x 10 d AM OXICILLIN 14361198286 No Longer Active Kalpesh Dong MD Active LEVAQUIN 500 MG TABS 1 PO q day x 7 days LEVOFL OXACIN 30807489418 No Longer Active Shola MCGILL Active AMITRIPTYLINE HCL 25 MG TAB 1 tab by mouth daily 60 minutes before bedtime AMITRIPTYLINE HCL 39771019551 No Longer Active Shola MCGILL Active LORTAB 5 5-500 MG TABS 1/2 to 1 tablet by mouth go ry 6 hours as needed for pain HYDROCODONE-ACETAMINOPHEN 13076726872 No Longer Active Shola MCGILL Active CEPHALEXIN 500 MG TABS Take one by mouth four times daily, morning, noon, early evening and bedtime. CEPHALEXIN 39960629769 No Long er Active Hira Moser APRN Active TYLENOL/CODEINE #3 300-30 MG TAB 1-2 po q6hr PRN Pain ACETAMINOPHEN-CODEINE 03270116171 No Longer Active Edilberto Marino DO Active PRISTIQ 50 MG [id number] 1 po qd DESVENLAFAXI NE SUCCINATE 60982934223 No Longer Active Edilberto Marino DO Active PENICILLIN V POTASSIUM 500 MG TAB 1 four times a day 2 PENICILLIN V POTASSIUM 43657585373 No Longer Active Edilberto Marino DO Active DOXYCYCLINE HYCLATE 100 MG CAPS Take one (1) tablet by mouth twice a day DOXYCYCLINE HYCLATE 41278530766 No Longer Active Ronnie Galvan MD Active HYDROCODONE-ACETAMINOPHEN 5-325 MG TABS 1 po q 6hr PRN Pain 2011 HYDROCODONE-ACETAMINOPHEN 30088634685 No Longer Active Jerson Perez RN Active BACTRIM DS 800-160 MG TAB 1 tab by mouth twice daily 2 TRIMETHOPRIM-SULFAMETHOXAZOLE 75424989105 No Longer Active Kalpesh Dong MD Active LORTAB 5 5-500 MG TABS 1/2 to 1 tablet by mouth go ry 4 hours as needed for pain HYDROCODONE-ACETAMINOPHEN 21478946197 No Longer Active Kalpesh Dong MD Active GENERESS FE 0.8-25 MG-MCG CHEW Take one by mouth daily NORETHIN-ETH ESTRADIOL-FE 11784328506 No Longer Active Kalpesh Dong MD Active HYDROCODONE-ACETAMINOPHEN 7.5-500 MG TABS 1-2 every 4 hours as needed HYDROCODONE-ACETAMINOPHEN 45885290847 No Longer Activ e Kalpesh Dong MD Active FERROUS SULFATE 325 (65 FE) MG TABS 1 tablet by mouth twice yung y FERROUS SULFATE 44451779990 No Longer Active Kalpesh Dong MD Active IBUPROFEN 600 MG TAB 1 po q6-8hr PRN IBUPROFEN 10521842797 No Longer Active Kalpesh Dong MD Active SPIRONOLACTONE 25 MG TAB 1 tablet by mouth daily 01/22 SPIRONOLACTONE 52772034304 No Longer Active Kalpesh Dong MD Acti ve HYDROCODONE-ACETAMINOPHEN 7.5-325 MG TABS 1 po QID PRN Pain 2011 HYDROCODONE-ACETAMINOPHEN 59053955111 No Longer Active Kalpesh Dong MD Active CLINDAMYCIN HCL 300 MG CAPS 1 po q6hr x 7 days CLINDAMYCIN HCL 52933389229 No Longer Active Edilberto Marino DO Active PREDNISONE 20 MG TAB 2 tabs daily for 4 days, 1 t ab daily for 4 days, 1/2 tab daily for 4 days PREDNISONE 80448578958 No Longer Active Edilberto Marino DO Active PERCOCET 5-325 MG TABS 1 tablet by mouth every 6 hours as ne eded for pain OXYCODONE-ACETAMINOPHEN 84960446963 No Longer Active Abdirahman Rios MD Active VITAMINS TABS Take one by mouth daily MV & MIN W/FE-FA TABS 41314108193 No Longer Active Abdirahman Rios MD Active LUIS 3-0.02 MG TABS 1 tablet by mouth daily as directed DROSPIRENONE-ETHINYL ESTRADIOL 41456112544 No Longer Active Abdirahman Rios MD Active LORATADINE 10 MG TABS 1 tablet by mouth daily L ORATADINE 68558719437 No Longer Active Kalpesh Dong MD Active HYDROCODONE-ACETAMINOPHEN 5-325 MG TABS 1 po q 6hr PRN Pain 2010 HYDROCODONE-ACETAMINOPHEN 29202126019 No Longer Active Edilberto Marino DO Active BACTRIM DS 800-160 MG TAB 1 tab by mouth twice daily 2 TRIMETHOPRIM-SULFAMETHOXAZOLE 29194195535 No Longer Active Abdirahman Rios MD Active 28-0.8 MG TABS Take one by mouth daily 09/20 VIT-FE FUMARATE-FA 63234072657 No Longer Active Abdirahman Rios MD Active CIPRO 500 MG TAB 1 tablet by mouth twice daily CIPROFLOXACIN HCL 05945667711 No Longer Active Abdirahman Rios MD Active BENADRYL 25 MG CAP 1 po q8hr PRN Congestion DIPHENHYDRAMINE HCL 68754351532 No Longer Active Abdirahmna Rios MD Active ZOLOFT 50 MG TAB 1 po qd SERTRALINE HCL 382270 45469 No Longer Active Abdirahman Rios MD Active AMOXICILLIN 875 MG TABS 1 tab by mouth twice daily 201 08/09/13 AMOXICILLIN 31225149829 No Longer Active Abdirahman Rios MD Activ e AMOXICILLIN 875 MG TABS 1 tab by mouth twice daily 201 07/19/27 AMOXICILLIN 16159043356 No Longer Active Abdirahman Rios MD Activ e BACTRIM DS 800-160 MG TAB 2 tab by mouth twice daily 2 TRIMETHOPRIM-SULFAMETHOXAZOLE 17079546231 No Longer Active Abdirahman Rios MD Active KEFLEX 500 MG CAP 1 po tid x 10 days CEPHALEXIN 61948593768 No Longer Active Abdirahman Rios MD Active AMOXICILLIN 875 MG TABS 1 tab by mouth twice daily 201 07/18/07 AMOXICILLIN 02982601704 No Longer Active Abdirahman W Dillow MD Activ e BACTRIM DS 800-160 MG TAB 2 tab by mouth twice daily 2 BACTRIM DS 800-160 MG TAB TRIMETHOPRIM-SULFAMETHOXAZOLE Inactive ZOLOFT 50 MG TAB 1 po qd ZOLOFT 50 MG TAB 3129 41 SERTRALINE HCL Inactive BENADRYL 25 MG CAP 1 po q8hr PRN Congestion BENADRYL 25 MG CAP 4442834 DIPHENHYDRAMINE HCL Inactive 28-0.8 MG TABS Take one by mouth daily 09/20 28-0.8 MG TABS VIT-FE FUMARATE-FA Inactive HYDROCODONE-ACETAMINOPHEN 5-325 MG TABS 1 po q 6hr PRN Pain 2010 HYDROCODONE-ACETAMINOPHEN 5-325 MG TABS 688769 HYDROCODONE-ACETAMINOPHEN Inactive LORATADINE 10 MG TABS 1 tablet by mouth daily LORATADINE 10 MG TABS 447819 LORATADINE Inactive LUIS 3-0.02 MG TABS 1 tablet by mouth daily as directed LUIS 3-0.02 MG TABS DROSPIRENONE-ETHINYL ESTRADIOL Inactive VITAMINS TABS Take one by mouth daily VITAMINS TABS MV & MIN W/FE-FA TABS Inactive PERCOCET 5-325 MG TABS 1 tablet by mouth every 6 hours as ne eded for pain PERCOCET 5-325 MG TABS 0144170 OXYCODONE-ACETAMIN OPHEN Inactive PREDNISONE 20 MG TAB 2 tabs daily for 4 days, 1 t ab daily for 4 days, 1/2 tab daily for 4 days PREDNISONE 20 MG TAB 551026 PREDNISON E Inactive CLINDAMYCIN HCL 300 MG CAPS 1 po q6hr x 7 days CLINDAMYCIN HCL 300 MG CAPS 470406 CLINDAMYCIN HCL Inactive HYDROCODONE-ACETAMINOPHEN 7.5-325 MG TABS 1 po QID PRN Pain 2011 HYDROCODONE-ACETAMINOPHEN 7.5-325 MG TABS 809940 HYDROCODONE-ACETAMINOPHEN Inactive SPIRONOLACTONE 25 MG TAB 1 tablet by mouth daily 01/22 SPIRONOLACTONE 25 MG TAB 269714 SPIRONOLACTONE Inactive IBUPROFEN 600 MG TAB 1 po q6-8hr PRN IBUPROFEN 600 MG TAB 993085 IBUPROFEN Inactive FERROUS SULFATE 325 (65 FE) MG TABS 1 tablet by mouth twice yung y FERROUS SULFATE 325 (65 FE) MG TABS 833539 FERROUS SULF ATE Inactive HYDROCODONE-ACETAMINOPHEN 7.5-500 MG TABS 1-2 every 4 hours as needed HYDROCODONE-ACETAMINOPHEN 7.5-500 MG TABS HYDROCODONE-ACETAMINOPHEN Inactive GENERESS FE 0.8-25 MG-MCG CHEW Take one by mouth daily GENERESS FE 0.8-25 MG-MCG CHEW 5233330 NORETHIN-ETH ESTRADIOL-FE Inactive LORTAB 5 5-500 MG [...] PRN Pain 2011 HYDROCODONE-ACETAMINOPHEN 5-325 MG TABS 753790 HYDROCODONE-ACETAMINOPHEN Inactive DOXYCYCLINE HYCLATE 100 MG CAPS Take one (1) tablet by mouth twice a day DOXYCYCLINE HYCLATE 100 MG CAPS 6714491 DOXYCYCLINE HYCLATE Inactive PENICILLIN V POTASSIUM 500 MG TAB 1 four times a day 2 PENICILLIN V POTASSIUM 500 MG TAB 629169 PENICILLIN V POTASSIUM Siri ctive PRISTIQ 50 MG [id number] 1 po qd PRISTIQ 50 MG [id number] DESVENLAFAXINE SUCCINATE Inactive TYLENOL/CODEINE #3 300-30 MG TAB 1-2 po q6hr PRN Pain TYLENOL/CODEINE #3 300-30 MG TAB 384233 ACETAMINOPHEN-CODEINE Inact krishna CEPHALEXIN 500 MG TABS Take one by mouth four times daily, morning, noon, early evening and bedtime. CEPHALEXIN 500 MG TABS 176045 CEPHALEXIN Inactive LORTAB 5 5-500 MG TABS 1/2 to 1 tablet by mouth go ry 6 hours as needed for pain LORTAB 5 5-500 MG TABS HYDROCODONE-A CETAMINOPHEN Inactive AMITRIPTYLINE HCL 25 MG TAB 1 tab by mouth daily 60 minutes before bedtime AMITRIPTYLINE HCL 25 MG TAB 508846 AMITRIPTYLINE HCL Inactive AMOXICILLIN 500 MG TABS 2 tabs PO bid x 10 d 7 AMOXICILLIN 500 MG TABS 599038 AMOXICILLIN Inactive IMPLANON 68 MG IMPL IMPLANTED IN LEFT ARM IMPLANON 68 MG IMPL ETONOGESTREL Inactive HYDROCODONE-ACETAMINOPHEN 5-325 MG TABS 1 PO tid PRN pain 5 HYDROCODONE-ACETAMINOPHEN 5-325 MG TABS 278985 HYDROCODONE-ACETAMIN OPHEN Inactive BACTRIM DS 800-160 MG TAB 1 tab by mouth twice daily 2 BACTRIM DS 800-160 MG TAB TRIMETHOPRIM-SULFAMETHOXAZOLE Inac tive CEPHALEXIN 500 MG CAPS 1 PO bid x 7 days CEPHALEXIN 500 MG CAPS 068326 CEPHALEXIN Inactive HYDROCODONE-ACETAMINOPHEN 5-325 MG TABS 1 tab by mouth every 6 hours as needed HYDROCODONE-ACETAMINOPHEN 5-325 MG TABS 845452 HYDROCODONE-ACETAMINOPHEN Inactive PROMETHAZINE-CODEINE 6.25-10 MG/5ML SYRP 1 tsp every 6 hrs prn c ough PROMETHAZINE-CODEINE 6.25-10 MG/5ML SYRP 265007 PROMETH AZINE-CODEINE Inactive IBUPROFEN 800 MG TAB 1 pill three times daily as needed for pain IBUPROFEN 800 MG TAB 632499 IBUPROFEN Inactive KEFLEX 500 MG CAP 1 tab po tid KEFLEX 500 MG CAP 899446 CEPHALEXIN Inactive HYDROCODONE-ACETAMINOPHEN 7.5-325 MG TABS 1 four times a day as needed for pain HYDROCODONE-ACETAMINOPHEN 7.5-325 MG TABS 581694 HYDROCODONE-ACETAMINOPHEN Inactive BACTRIM DS 800-160 MG TABS by mouth twice a day 11/05 BACTRIM DS 800-160 MG TABS SULFAMETHOXAZOLE-TRIMETHOPRIM Inactive IBUPROFEN 800 MG TABS 1 tid prn IBUPROFEN 800 MG TABS 379842 IBUPROFEN Inactive ENDOCET 10-325 MG TABS 1 q 6 hr prn ENDOC ET 10-325 MG TABS 8752215 OXYCODONE-ACETAMINOPHEN Inactive HYDROCODONE-ACETAMINOPHEN 7.5-325 MG TABS 1 by mouth e very 6 hours as needed for pain HYDROCODONE-ACETAMINOPHEN 7.5-325 MG TABS 004785 HYDROCODONE-ACETAMINOPHEN Inactive PERCOCET 7.5-325 MG TABS 1 PO q 8 hrs PRN pain PERCOCET 7.5-325 MG TABS 3504002 OXYCODONE-ACETAMINOPHEN Inactive LIDODERM 5 % PTCH One patch to painful area [place] N. On for 12 hrs, off for 12 hrs. LIDODERM 5 % PTCH 4470314 LIDOCAINE Inactiv e PERCOCET 7.5-325 MG TABS 1 PO tid PRN pain PERCOCET 7.5- 325 MG TABS 2450259 OXYCODONE-ACETAMINOPHEN Inactive MOBIC 15 MG TABS 1 tab daily MOBIC 15 MG TABS 15 2695 MELOXICAM Inactive CYCLOBENZAPRINE HCL 10 MG TABS 1/2 - 1 tab PO tid PRN back p ain, muscle spasm CYCLOBENZAPRINE HCL 10 MG TABS 993158 CYCLOBENZA JOSEPH HCL Inactive LORATADINE 10 MG TABS 1 tablet by mouth daily LORATADINE 10 MG TABS 356761 LORATADINE Inactive HYDROCODONE-ACETAMINOPHEN 10-325 MG TABS 1 by mouth ev chaka 8 hours as needed for pain HYDROCODONE-ACETAMINOPHEN 10-325 MG TABS 573968 HYDROCODONE-ACETAMINOPHEN Inactive LC-5 LIDOCAINE 5 % CREA apply 1 time daily to affected area 2013 LC-5 LIDOCAINE 5 % CREA LIDOCAINE (ANORECTAL) In active PERCOCET 5-325 MG TAB 1 every 6 hours as needed PERCOCET 5-325 MG TAB 8753757 OXYCODONE-ACETAMINOPHEN Inactive KEFLEX 500 MG CAP 1 po qid KEFLEX 500 MG CAP 30 9114 CEPHALEXIN Inactive PROAIR HFA 108 (90 BASE) MCG/ACT AERS 2 puff q 4-6 hrs PRN 01/24 PROAIR HFA 108 (90 BASE) MCG/ACT AERS ALBUTEROL SULFATE Inactive PERCOCET 10-325 MG ORAL TABS 1 every 4 hours as needed PERCOCET 10-325 MG ORAL TABS 6300505 OXYCODONE-ACETAMINOPHEN Inactiv e EMLA 2.5-2.5 % EXT CREA apply to skin lesion q 6 hours, prn 2014 EMLA 2.5-2.5 % EXT CREA 866577 LIDOCAINE-PRILOCAINE Guinda ctive AMOXICILLIN 875 MG TABS 1 tab by mouth twice daily 201 07/18/07 AMOXICILLIN 875 MG TABS 841597 AMOXICILLIN Inactive KEFLEX 500 MG CAP 1 po tid x 10 days KEFLEX 500 MG CAP 117362 CEPHALEXIN Inactive AMOXICILLIN 875 MG TABS 1 tab by mouth twice daily 201 07/19/27 AMOXICILLIN 875 MG TABS 867627 AMOXICILLIN Inactive AMOXICILLIN 875 MG TABS 1 tab by mouth twice daily 201 08/09/13 AMOXICILLIN 875 MG TABS 505556 AMOXICILLIN Inactive CIPRO 500 MG TAB 1 tablet by mouth twice daily CIPRO 500 MG TAB 647332 CIPROFLOXACIN HCL Inactive BACTRIM DS 800-160 MG TAB 1 tab by mouth twice daily 2 BACTRIM DS 800-160 MG TAB TRIMETHOPRIM-SULFAMETHOXAZOLE Inac tive LEVAQUIN 500 MG TABS 1 PO q day x 7 days LEVAQUIN 500 MG TABS 931611 LEVOFLOXACIN Inactive CLINDAMYCIN HCL 300 MG CAPS 1 po QID x 7 days CLINDAMYCIN HCL 300 MG CAPS 254938 CLINDAMYCIN HCL Inactive AUGMENTIN 875-125 MG TAB 1 tab by mouth twice daily with food 20 22/05/07 AUGMENTIN 875-125 MG TAB 902165 AMOXICILLIN-POT CLAVULA [place] Inactive DIFLUCAN 150 MG TAB 1 qODay x 2 doses DIFLUCAN 150 MG TAB 783561 FLUCONAZOLE Inactive PREDNISONE 20 MG TAB 2 tabs daily for 3 days, 1 t ab daily for 3 days, 1/2 tab daily for 2 days PREDNISONE 20 MG TAB 586283 PREDNISON E Inactive AUGMENTIN 875-125 MG TAB 1 tab by mouth twice daily with food 20 21/10/13 AUGMENTIN 875-125 MG TAB 592437 AMOXICILLIN-POT CLAVULA [place] Inactive Advance Directives Directive Description Start Date PERMISSION TO SHARE Immunizations Vaccine Administration Date Value Standard Alf cription Seasonal influenza vaccine, injectable, containing preservative, for > 3 years old (Afluria, FluLaval, Fluzone, Fluvirin, Fluarix, Agriflu(>= 18 yo)) Fluzone (>3 yrs.) [[id number]] Influenza, seasonal, inject able Seasonal influenza vaccine, injectable, preservative free, for > 3 years old (Afluria, FluLaval, Fluzone, Fluvirin, Fluarix, Agriflu(>= 18 yo)) Fluzone preservative free (>3 yrs.) [[id number]] Influenza, seasonal, injectable, preservative free Seasonal influenza vaccine, injectable, containing preservative, for > 3 years old (Afluria, FluLaval, Fluzone, Fluvirin, Fluarix, Agriflu(>= 18 yo)) Fluzone (>3 yrs.) [[id number]] Influenza, seasonal, inject able Seasonal influenza vaccine, injectable, containing preservative, for > 3 years old (Afluria, FluLaval, Fluzone, Fluvirin, Fluarix, Agriflu(>= 18 yo)) Fluzone (>3 yrs.) [[id number]] Influenza, seasonal, inject able dT (Diphtheria and Tetanus) booster given Histor ical Td(adult) unspecified formulation Vital Signs Date Name [...] BP ribeiro blood pressure, systolic - 8480-6 117 mm[Hg] [...] Panel - Chemistry sodium, serum 142 mmol/L 719-604 7424/05/12 potassium, serum 4.8 mmol/L 3.5-5.2 chloride, serum [...] Panel - Chemistry cholesterol, serum 165 mg/dL 167-155 7379/05/12 triglyceride, serum, fasting 524 mg/dL 30-200 HDL [...] negative Encounters Code Encounter Date Provider Facility CPT-62140 Level 2 Est. Patient 16:33:01 CDT Kalpesh goins MD [facility] CPT-25239 Level 4 Est. Patient 16:44:56 CDT Abdirahman Rios MD [facility] CPT-93007 Level 2 Est. Patient 07:49:32 CDT Kalpesh goins MD [facility] CPT-36118 Level 3 New Patient 15:47:11 NEGATIVE DEVELOPER Bj huber MD [facility]-86931 Level 4 Est. Patient 14:37:38 NEGATIVE DEVELOPER Abdiarhman Rios MD [facility] CPT-26431 Level 2 Est. Patient 13:32:17 NEGATIVE DEVELOPER Kalpesh goins MD [facility]-00157 Level 3 Est. Patient 17:32:57 NEGATIVE DEVELOPER Edilberto tiwari DO [facility] CPT-09357 Level 3 Est. Patient 17:22:33 NEGATIVE DEVELOPER Edilberto tiwari [facility]-67121 Level 2 Est. Patient 16:57:09 NEGATIVE DEVELOPER Kalpesh goins MD [facility]-83195 Level 3 Est. Patient 14:03:08 NEGATIVE DEVELOPER Abdirahman Riso MD [facility] CPT-50385 Level 3 Est. Patient 18:12:34 CDT Shola Keesha Adriana [facility] CPT-08557 Level 3 Est. Patient 19:34:46 CDT Shola Wright [facility] CPT-56808 Level 3 Est. Patient 14:19:37 CDT Abdirahman Rios MD [facility] CPT-16656 Level 3 Est. Patient 14:11:58 CDT Kalpesh goins MD [facility] CPT-27041 Level 3 Est. Patient 16:50:00 [facility] Level 3 Est. Patient 17:11:32 NEGATIVE DEVELOPER Brandie bates MD PhD [facility] CPT-18346 Level 3 Est. Patient 16:31:47 NEGATIVE DEVELOPER Shola Houghsabi [facility] CPT-90448 Level 3 Est. Patient 17:51:10 NEGATIVE DEVELOPER Abhinav Galvan MD [facility] CPT-21425 Level 4 Est. Patient 12:54:56 NEGATIVE DEVELOPER Kalpesh goins MD [facility]-77228 Level 4 Est. Patient 12:53:56 NEGATIVE DEVELOPER Kalpesh goins MD [facility] CPT-67987 Level 3 Est. Patient 17:56:58 CDT Shola Houghsabi [facility] CPT-63887 Level 3 Est. Patient 14:26:20 CDT Janak butcher [facility] CPT-14473 Level 3 Est. Patient 09:38:41 CDT Shola Houghsabi [facility] CPT-67831 Level 3 Est. Patient 14:45:26 CDT Edilberto tiwari DO [facility] CPT-08255 Level 3 Est. Patient 10:51:33 [facility] Level 3 Est. Patient 11:57:55 NEGATIVE DEVELOPER Shola Wright [facility] CPT-74909 Level 3 Est. Patient 09:53:33 NEGATIVE DEVELOPER Edilberto tiwari [facility] CPT-52167 Level 3 Est. Patient 14:42:54 NEGATIVE DEVELOPER Abhinav Galvan MD [facility] CPT-48750 Level 3 Est. Patient 15:10:02 CDT Janak Stevenamira guadalupe [facility] CPT-42639 Level 3 Est. Patient 15:20:20 CDT Theo dennis MD [facility]-17806 Level 2 Est. Patient 14:08:57 CDT Kalpesh goins MD [facility]-75870 Level 3 Est. Patient 13:56:19 CDT Abdirahman Rios MD [facility] CPT-34644 Level 3 Est. Patient 13:59:37 CDT Abdirahman Rios MD [facility] CPT-21395 Level 2 Est. Patient 14:44:59 CDT Kalpesh goins MD [facility]-64882 Level 3 Est. Patient 06:06:23 CDT Edilberto tiwari [facility] CPT-06035 Level 3 Est. Patient 15:23:54 CDT Abdirahman Rios MD [facility] CPT-38955 Level 3 Est. Patient 15:43:49 CDT Abdirahman Rios MD [facility] CPT-83228 Level 3 Est. Patient 12:46:47 NEGATIVE DEVELOPER Abdirahman Rios MD [facility]-31836 Level 3 Est. Patient 08:13:35 NEGATIVE DEVELOPER Abdirahman Rios MD [facility] CPT-49154 Level 2 Est. Patient 09:36:42 NEGATIVE DEVELOPER Abdirahman Rios MD [facility] CPT-50870 Level 3 Est. Patient 10:56:43 CDT Abdirahman Rios MD [facility] CPT-54489 Level 3 Est. Patient 18:24:52 CDT Abdirahman Rios MD [facility] [facility] CPT-78277 Level 3 Est. Patient 13:27:22 CDT Abdirahman Rios MD [facility] Procedures Code Procedure Name Date Entry Date Standard Desc ription CPT-21797 Postop F/U Visit 15:27:43 CDT CPT-07410 Postop F/U Visit 14:40:59 CDT CPT-48130 Postop F/U Visit 15:02:46 CDT CPT-69272 Postop F/U Visit 11:29:00 NEGATIVE DEVELOPER CPT-J0696 Rocephin 1000 mg (Ceftriaxone) 17:22:33 NEGATIVE DEVELOPER CPT-03565 Postop F/U Visit 18:41:07 NEGATIVE DEVELOPER CPT-79054 Postop F/U Visit 08:19:08 NEGATIVE DEVELOPER CPT-78137 Immunization Single Admin 16:41:53 CDT 2013 CPT-66736 Fluzone Quadrivalent Intramuscular Suspe nsion 0.5 ML 16:41:53 CDT CPT-OV Office Visit 16:39:18 CDT CPT-OV Office Visit 16:16:36 CDT CPT-OV Office Visit 15:34:48 CDT CPT-16366 Postop F/U Visit 14:50:12 CDT CPT-67565 Postop F/U Visit 14:41:10 CDT CPT-51403 Venipuncture Draw Fee 11:38:04 NEGATIVE DEVELOPER CPT-91254 Postop F/U Visit 19:02:59 NEGATIVE DEVELOPER CPT-50921 Postop F/U Visit 12:04:54 NEGATIVE DEVELOPER CPT-48941 Administration single or combination vac cine inc oral 15:56:43 CDT CPT-17895 Influenza split virus > age 3 15:56:43 CDT CPT-91329 Hand comp min 3V 14:25:19 CDT CPT-53029 Postop F/U Visit 21:40:51 CDT CPT-13949 Postop F/U Visit 10:58:43 CDT CPT-38497 Administration single or combination vac cine inc oral 12:33:54 NEGATIVE DEVELOPER CPT-81028 Influenza Preservative Free split virus >age 3 12:33:54 NEGATIVE DEVELOPER CPT-45990 Administration single or combination vac cine inc oral 09:30:51 CDT CPT-03999 Influenza split virus > age 3 09:30:51 CDT CPT-00919 Postop F/U Visit 15:14:53 CDT CPT-83693 Postop F/U Visit 13:50:14 CDT CPT-24831 Postop F/U Visit 13:34:52 CDT CPT-OV Office Visit 16:55:03 CDT CPT-44086 [place] of cervix w bx ECC 13:32:50 CDT 10/19 CPT-J1885 Toradol 60 mg (Ketorolac) 15:31:59 CDT 2011 CPT-J1885 Toradol 60 mg (Ketorolac) 15:23:54 CDT 2011 CPT-15130 Visit 11:34:37 NEGATIVE DEVELOPER CPT-98503 Visit 10:52:39 NEGATIVE DEVELOPER CPT-90490 Visit 10:12:02 NEGATIVE DEVELOPER CPT-34579 Visit 11:22:43 NEGATIVE DEVELOPER CPT-88193 Visit 11:24:12 NEGATIVE DEVELOPER CPT-86919 Visit 10:47:05 NEGATIVE DEVELOPER CPT-OV Office Visit 10:26:16 NEGATIVE DEVELOPER CPT-OV Office Visit 15:34:31 NEGATIVE DEVELOPER CPT-48082 Visit 10:42:08 NEGATIVE DEVELOPER CPT-56993 Visit 10:52:45 NEGATIVE DEVELOPER CPT-000 Give Appropriate Flu Vaccine 16:56:41 CDT 2 CPT-42408 Administration single or combination vac cine inc oral 10:33:21 CDT CPT-39625 Influenza split virus > age 3 10:33:21 CDT CPT-11676 Visit 13:23:09 CDT CPT-22826 Visit 18:24:52 CDT CPT-57007 Sono OB comp > 14 weeks 12:07:49 CDT 04/07
--- OUTSIDE RECORDS SUMMARY | 2020-01-18 15:45 | XMS REPORT | Clinical Summary ---
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 [...] LUMBAR, CHRONIC 724.2 Correction Brigitte Martin Lumbago BACK PAIN, LUMBAR, CHRONIC 724.2 Active Sayda KLEIN Lumbago Dysmenorrhea, severe 625.3 Resolved Kalpesh bernal [...] Hypoglycemia, unspecified Anxiety 300.00 Active Joann Grace RMA Anxiety state, unspecified Swelling of limb 729.81 [...] NEC Abscess, perirectal 566 Active Hira roman PHYSICAL MEDICINE TEACHER Abscess of anal and rectal regions Hypertriglyceridemia 272.1 Active Abdirahman restrepo MD Pure hyperglyceridemia FH Diabetes V18.0 Active Kalpesh Dong MD Family history of diabetes mellitus Medication monitoring V58.69 Active Gabriela Goodwin RMA Long-term (current) use of other medications Aftercare following surgery of the skin and subcutaneous tis braden, NEC V58.77 Active Hira Moser APRN Afterca re following surgery of the skin and subcutaneous tissue, NEC , INCIDENTAL PROBLEM ICD-V22.2 Inacti ve Abdirahman [...] FAMILY PLANNING ICD-V25.09 Inactive Good Julian MD MODERATE DYSPLASIA OF [...] BACK PAIN ICD-724.5 Inactive Good collier MD Dysmenorrhea, severe ICD-625.3 Inactive Kalpesh Dong MD [...] Name NDC Status Provider Patient Instruction PERCOCET 5-325 MG TAB 1 tab po q 6 -8 hours, prn for severe pain 20 20/02/27 OXYCODONE-ACETAMINOPHEN 41878569405 Active Jillina Frajalenl PHYSICAL MEDICINE TEACHER Active PERCOCET 5-325 MG ORAL TABS 1 every 6 hours as needed OXYCODONE-ACETAMINOPHEN 51265450684 Active Jillina Frazell PHYSICAL MEDICINE TEACHER Active HYDROCODONE-ACETAMINOPHEN 5-325 MG TABS 1 po q6hr PRN pain 06/30 HYDROCODONE-ACETAMINOPHEN 48930584053 No Longer Active Jillina Frazel l PHYSICAL MEDICINE TEACHER Active SPRINTEC 28 0.25-35 MG-MCG TABS 1 pill by mouth daily for bi rth control NORGESTIMATE-ETH ESTRADIOL 74477069060 Active Matthewllina Karmenl PHYSICAL MEDICINE TEACHER Active GLUCOPHAGE 500 MG ORAL TABS one by mouth 3 times a day METFORMIN HCL 98036889235 No Longer Active Jillina Karmenl PHYSICAL MEDICINE TEACHER Ac tive PERCOCET 10-325 MG TABS 1 tab by mouth every 6 hours , use sparingly for severe pain OXYCODONE-ACETAMINOPHEN 71925097771 No Longer A ctive Abdirahman Rios MD Active IBUPROFEN 600 MG ORAL TABS 1 by mouth twice a day IBUPROFEN 49301684336 Active ERNIE Higuera Active TRAZODONE HCL 100 MG TAB 0.5 to 1 po qHS PRN Insomnia TRAZODONE HCL 68486933521 Active Abdirahman Rios MD Active CYMBALTA 30 MG CPEP 1 cap by mouth daily DULOXE CLEO HCL 00010011106 Active Abdirahman Rios MD Active EMLA 2.5-2.5 % EXT CREA apply to skin lesion q 6 hours, prn 2014 LIDOCAINE-PRILOCAINE 11987162985 No Longer Active Abdirahman Rios MD Active PERCOCET 10-325 MG ORAL TABS 1 every 4 hours as needed OXYCODONE-ACETAMINOPHEN 67720490300 No Longer Active Abdirahman Rios MD Active [id number]-[id number] 50-325-40 MG ORAL CAPS 1-2 po TID SC N Headache COJOJFDBHO-VVMZZSW-IEVPLEQL 23527699367 Active Abdirahman Rios MD Active AUGMENTIN 875-125 MG TAB 1 tab by mouth twice daily with food 21/10/13 AMOXICILLIN-POT CLAVULANATE 79915786136 No Longer Active Ursula jasmina Frazell PHYSICAL MEDICINE TEACHER Active PROAIR HFA 108 (90 BASE) MCG/ACT AERS 2 puff q 4-6 hrs PRN 01/24 ALBUTEROL SULFATE 38631905923 No Longer Active Kalpesh Dong MD Active ALPRAZOLAM 0.5 MG TABS 1 po BID PRN Anxiety ALPRA ZOLAM 11273179557 Active Abdirahman Rios MD Active CYCLOBENZAPRINE HCL 10 MG TABS 1 tablet by mouth three times daily as needed for muscle spasm/pain CYCLOBENZAPRINE HCL 18897582889 Active Abdirahman Rios MD Active PREDNISONE 20 MG TAB 2 tabs daily for 3 days, 1 t ab daily for 3 days, 1/2 tab daily for 2 days PREDNISONE 78197020201 No Longer Active Abdirahman Rios MD Active KEFLEX 500 MG CAP 1 po qid CEPHALEXIN 068546129 20 No Longer Active Kalpesh Dong MD Active PERCOCET 5-325 MG TAB 1 every 6 hours as needed OXYCODONE-ACETAMINOPHEN 05510379541 No Longer Active Shola MCGILL Active LC-5 LIDOCAINE 5 % CREA apply 1 time daily to affected area 2013 LIDOCAINE (ANORECTAL) 01792487194 No Longer Active Jillina F razell PHYSICAL MEDICINE TEACHER Active HYDROCODONE-ACETAMINOPHEN 10-325 MG TABS 1 by mouth ev chaka 8 hours as needed for pain HYDROCODONE-ACETAMINOPHEN 34253868065 No Longer Active Jillina Frazell PHYSICAL MEDICINE TEACHER Active LORATADINE 10 MG TABS 1 tablet by mouth daily L ORATADINE 33301856488 No Longer Active Jillina Frazell PHYSICAL MEDICINE TEACHER Active DIFLUCAN 150 MG TAB 1 qODay x 2 doses FLUCONAZO LE 45072989432 No Longer Active Jillina Frazell PHYSICAL MEDICINE TEACHER Active CYCLOBENZAPRINE HCL 10 MG TABS 1/2 - 1 tab PO tid PRN back p ain, muscle spasm CYCLOBENZAPRINE HCL 49770689952 No Longer Active Karen herson Frazell PHYSICAL MEDICINE TEACHER Active AUGMENTIN 875-125 MG TAB 1 tab by mouth twice daily with food 20 22/05/07 AMOXICILLIN-POT CLAVULANATE 32077742427 No Longer Active Loida Rios MD Active MOBIC 15 MG TABS 1 tab daily MELOXICAM 010210128 14 No Longer Active Abdirahman Rios MD Active PERCOCET 7.5-325 MG TABS 1 PO tid PRN pain OXYCODONE-ACETAMINOPHEN 43695381064 No Longer Active Abdirahman Rios MD Active LIDODERM 5 % PTCH One patch to painful area SC N. On for 12 hrs, off for 12 hrs. LIDOCAINE 80425075546 No Longer Active Abdirahman Rios MD Active PERCOCET 7.5-325 MG TABS 1 PO q 8 hrs PRN pain OXYCODONE-ACETAMINOPHEN 51632603392 No Longer Active Shola MCGILL Active HYDROCODONE-ACETAMINOPHEN 7.5-325 MG TABS 1 by mouth e very 6 hours as needed for pain HYDROCODONE-ACETAMINOPHEN 98722199855 No Longer Active Good Julian MD Active CLINDAMYCIN HCL 300 MG CAPS 1 po QID x 7 days CLINDAMYCIN HCL 17444539644 No Longer Active Abdirahman Rios MD Activ e BACTRIM DS 800-160 MG TABS 1 po BID x 7 days 5 SULFAMETHOXAZOLE-TRIMETHOPRIM 32086263527 No Longer Active Abdirahman Rios MD Active ENDOCET 10-325 MG TABS 1 q 6 hr prn OXYCODONE-ACETAMINOPHEN 91099788891 No Longer Active Abdirahman Rios MD Active IBUPROFEN 800 MG TABS 1 tid prn IBUPROFEN 396592 06482 No Longer Active Abdirahman Rios MD Active BACTRIM DS 800-160 MG TABS by mouth twice a day 11/05 SULFAMETHOXAZOLE-TRIMETHOPRIM 28244577235 No Longer Active Good Julian MD Active HYDROCODONE-ACETAMINOPHEN 7.5-325 MG TABS 1 four times a day as needed for pain HYDROCODONE-ACETAMINOPHEN 86121083609 No Longer Activ e Good Julian MD Active KEFLEX 500 MG CAP 1 tab po tid CEPHALEXIN 588551 62460 No Longer Active Jillherson Moser PHYSICAL MEDICINE TEACHER Active IBUPROFEN 800 MG TAB 1 pill three times daily as needed for pain IBUPROFEN 77775322006 No Longer Active Kalpesh Dong MD Active PROMETHAZINE-CODEINE 6.25-10 MG/5ML SYRP 1 tsp every 6 hrs prn c ough PROMETHAZINE-CODEINE 75014257215 No Longer Active Kalpesh Carr Active HYDROCODONE-ACETAMINOPHEN 5-325 MG TABS 1 tab by mouth every 6 hours as needed HYDROCODONE-ACETAMINOPHEN 24887408247 No Longer Activ e Shola MCGILL Active CEPHALEXIN 500 MG CAPS 1 PO bid x 7 days CEPHAL EXIN 79058601884 No Longer Active Shola MCGILL Active BACTRIM DS 800-160 MG TAB 1 tab by mouth twice daily 2 TRIMETHOPRIM-SULFAMETHOXAZOLE 63224044989 No Longer Active Kalpesh Dong MD Active HYDROCODONE-ACETAMINOPHEN 5-325 MG TABS 1 PO tid PRN pain 5 HYDROCODONE-ACETAMINOPHEN 93481824176 No Longer Active Abhinav Galvan MD Active IMPLANON 68 MG IMPL IMPLANTED IN LEFT ARM ETONO GESTREL 18578668312 No Longer Active Hira Moser APRN Active AMOXICILLIN 500 MG TABS 2 tabs PO bid x 10 d AM OXICILLIN 55149951308 No Longer Active Kalpesh Dong MD Active LEVAQUIN 500 MG TABS 1 PO q day x 7 days LEVOFL OXACIN 79037061967 No Longer Active Shola MCGILL Active AMITRIPTYLINE HCL 25 MG TAB 1 tab by mouth daily 60 minutes before bedtime AMITRIPTYLINE HCL 25699247126 No Longer Active Shola MCGILL Active LORTAB 5 5-500 MG TABS 1/2 to 1 tablet by mouth go ry 6 hours as needed for pain HYDROCODONE-ACETAMINOPHEN 76394938668 No Longer Active Shola MCGILL Active CEPHALEXIN 500 MG TABS Take one by mouth four times daily, morning, noon, early evening and bedtime. CEPHALEXIN 52973340400 No Long er Active Matthewllina Shanti RIVAS Active TYLENOL/CODEINE #3 300-30 MG TAB 1-2 po q6hr PRN Pain ACETAMINOPHEN-CODEINE 09214800655 No Longer Active Edilberto Marino DO Active PRISTIQ 50 MG [id number] 1 po qd DESVENLAFAXI NE SUCCINATE 99946721848 No Longer Active Edilberto Marino DO Active PENICILLIN V POTASSIUM 500 MG TAB 1 four times a day 2 PENICILLIN V POTASSIUM 32599248318 No Longer Active Edilberto Marino DO Active DOXYCYCLINE HYCLATE 100 MG CAPS Take one (1) tablet by mouth twice a day DOXYCYCLINE HYCLATE 00581822435 No Longer Active Ronnie Galvan MD Active HYDROCODONE-ACETAMINOPHEN 5-325 MG TABS 1 po q 6hr PRN Pain 2011 HYDROCODONE-ACETAMINOPHEN 31974841994 No Longer Active Patri joan Perez RN Active BACTRIM DS 800-160 MG TAB 1 tab by mouth twice daily 2 TRIMETHOPRIM-SULFAMETHOXAZOLE 51140652403 No Longer Active Kalpesh Dong MD Active LORTAB 5 5-500 MG TABS 1/2 to 1 tablet by mouth go ry 4 hours as needed for pain HYDROCODONE-ACETAMINOPHEN 63043589900 No Longer Active Kalpesh Dong MD Active GENERESS FE 0.8-25 MG-MCG CHEW Take one by mouth daily NORETHIN-ETH ESTRADIOL-FE 85216766924 No Longer Active Kalpesh Dong MD Active HYDROCODONE-ACETAMINOPHEN 7.5-500 MG TABS 1-2 every 4 hours as needed HYDROCODONE-ACETAMINOPHEN 33322398951 No Longer Activ e Kalpesh Dong MD Active FERROUS SULFATE 325 (65 FE) MG TABS 1 tablet by mouth twice yung y FERROUS SULFATE 02757459042 No Longer Active Kalpesh Dong MD Active IBUPROFEN 600 MG TAB 1 po q6-8hr PRN IBUPROFEN 08819186567 No Longer Active Kalpesh Dong MD Active SPIRONOLACTONE 25 MG TAB 1 tablet by mouth daily 01/22 SPIRONOLACTONE 41235243888 No Longer Active Kalpesh Dong MD Acti ve HYDROCODONE-ACETAMINOPHEN 7.5-325 MG TABS 1 po QID PRN Pain 2011 HYDROCODONE-ACETAMINOPHEN 03529648272 No Longer Active Kalpesh Dong MD Active CLINDAMYCIN HCL 300 MG CAPS 1 po q6hr x 7 days CLINDAMYCIN HCL 06656909311 No Longer Active Edilberto Marino DO Active PREDNISONE 20 MG TAB 2 tabs daily for 4 days, 1 t ab daily for 4 days, 1/2 tab daily for 4 days PREDNISONE 63002064040 No Longer Active Edilberto Marino DO Active PERCOCET 5-325 MG TABS 1 tablet by mouth every 6 hours as ne eded for pain OXYCODONE-ACETAMINOPHEN 56123807837 No Longer Active Abdirahman Rios MD Active VITAMINS TABS Take one by mouth daily MV & MIN W/FE-FA TABS 51486894373 No Longer Active Abdirahman Rios MD Active LUIS 3-0.02 MG TABS 1 tablet by mouth daily as directed DROSPIRENONE-ETHINYL ESTRADIOL 19274825973 No Longer Active Abdirahman Rios MD Active LORATADINE 10 MG TABS 1 tablet by mouth daily L ORATADINE 36118650251 No Longer Active Kalpesh Dong MD Active HYDROCODONE-ACETAMINOPHEN 5-325 MG TABS 1 po q 6hr PRN Pain 2010 HYDROCODONE-ACETAMINOPHEN 95853193765 No Longer Active Edilberto Marino DO Active BACTRIM DS 800-160 MG TAB 1 tab by mouth twice daily 2 TRIMETHOPRIM-SULFAMETHOXAZOLE 94718160629 No Longer Active Abdirahman Rios MD Active 28-0.8 MG TABS Take one by mouth daily 09/20 VIT-FE FUMARATE-FA 97514671057 No Longer Active Abdirahman Rios MD Active CIPRO 500 MG TAB 1 tablet by mouth twice daily CIPROFLOXACIN HCL 10911974075 No Longer Active Abdirahman Rios MD Active BENADRYL 25 MG CAP 1 po q8hr PRN Congestion DIPHENHYDRAMINE HCL 36326640976 No Longer Active Abdirahman Rios MD Active ZOLOFT 50 MG TAB 1 po qd SERTRALINE HCL 925034 19897 No Longer Active Abdirahman Rios MD Active AMOXICILLIN 875 MG TABS 1 tab by mouth twice daily 201 08/09/13 AMOXICILLIN 17411461468 No Longer Active Abdirahman Rios MD Activ e AMOXICILLIN 875 MG TABS 1 tab by mouth twice daily 201 07/19/27 AMOXICILLIN 75638574387 No Longer Active Abdirahman Rios MD Activ e BACTRIM DS 800-160 MG TAB 2 tab by mouth twice daily 2 TRIMETHOPRIM-SULFAMETHOXAZOLE 34550753078 No Longer Active Abdirahman Rios MD Active KEFLEX 500 MG CAP 1 po tid x 10 days CEPHALEXIN 35955523241 No Longer Active Abdirahman Rios MD Active AMOXICILLIN 875 MG TABS 1 tab by mouth twice daily 201 07/18/07 AMOXICILLIN 74778705530 No Longer Active Abdirahman Rios MD Activ e BACTRIM DS 800-160 MG TAB 2 tab by mouth twice daily 2 BACTRIM DS 800-160 MG TAB TRIMETHOPRIM-SULFAMETHOXAZOLE Inactive ZOLOFT 50 MG TAB 1 po qd ZOLOFT 50 MG TAB 3129 41 SERTRALINE HCL Inactive BENADRYL 25 MG CAP 1 po q8hr PRN Congestion BENADRYL 25 MG CAP 4069464 DIPHENHYDRAMINE HCL Inactive 28-0.8 MG TABS Take one by mouth daily 09/20 28-0.8 MG TABS VIT-FE FUMARATE-FA Inactive HYDROCODONE-ACETAMINOPHEN 5-325 MG TABS 1 po q 6hr PRN Pain 2010 HYDROCODONE-ACETAMINOPHEN 5-325 MG TABS 792503 HYDROCODONE-ACETAMINOPHEN Inactive LORATADINE 10 MG TABS 1 tablet by mouth daily LORATADINE 10 MG TABS 169388 LORATADINE Inactive LUIS 3-0.02 MG TABS 1 tablet by mouth daily as directed LUIS 3-0.02 MG TABS DROSPIRENONE-ETHINYL ESTRADIOL Inactive VITAMINS TABS Take one by mouth daily VITAMINS TABS MV & MIN W/FE-FA TABS Inactive PERCOCET 5-325 MG TABS 1 tablet by mouth every 6 hours as ne eded for pain PERCOCET 5-325 MG TABS 5154901 OXYCODONE-ACETAMIN OPHEN Inactive PREDNISONE 20 MG TAB 2 tabs daily for 4 days, 1 t ab daily for 4 days, 1/2 tab daily for 4 days PREDNISONE 20 MG TAB 898763 PREDNISON E Inactive CLINDAMYCIN HCL 300 MG CAPS 1 po q6hr x 7 days CLINDAMYCIN HCL 300 MG CAPS 700712 CLINDAMYCIN HCL Inactive HYDROCODONE-ACETAMINOPHEN 7.5-325 MG TABS 1 po QID PRN Pain 2011 HYDROCODONE-ACETAMINOPHEN 7.5-325 MG TABS 355080 HYDROCODONE-ACETAMINOPHEN Inactive SPIRONOLACTONE 25 MG TAB 1 tablet by mouth daily 01/22 SPIRONOLACTONE 25 MG TAB 516073 SPIRONOLACTONE Inactive IBUPROFEN 600 MG TAB 1 po q6-8hr PRN IBUPROFEN 600 MG TAB 284703 IBUPROFEN Inactive FERROUS SULFATE 325 (65 FE) MG TABS 1 tablet by mouth twice yung y FERROUS SULFATE 325 (65 FE) MG TABS 281699 FERROUS SULF ATE Inactive HYDROCODONE-ACETAMINOPHEN 7.5-500 MG TABS 1-2 every 4 hours as needed HYDROCODONE-ACETAMINOPHEN 7.5-500 MG TABS HYDROCODONE-ACETAMINOPHEN Inactive GENERESS FE 0.8-25 MG-MCG CHEW Take one by mouth daily GENERESS FE 0.8-25 MG-MCG CHEW 8644093 NORETHIN-ETH ESTRADIOL-FE Inactive LORTAB 5 5-500 MG [...] PRN Pain 2011 HYDROCODONE-ACETAMINOPHEN 5-325 MG TABS 165152 HYDROCODONE-ACETAMINOPHEN Inactive DOXYCYCLINE HYCLATE 100 MG CAPS Take one (1) tablet by mouth twice a day DOXYCYCLINE HYCLATE 100 MG CAPS 4965003 DOXYCYCLINE HYCLATE Inactive PENICILLIN V POTASSIUM 500 MG TAB 1 four times a day 2 PENICILLIN V POTASSIUM 500 MG TAB 828490 PENICILLIN V POTASSIUM [place] ctive PRISTIQ 50 MG [id number] 1 po qd PRISTIQ 50 MG [id number] DESVENLAFAXINE SUCCINATE Inactive TYLENOL/CODEINE #3 300-30 MG TAB 1-2 po q6hr PRN Pain TYLENOL/CODEINE #3 300-30 MG TAB 516676 ACETAMINOPHEN-CODEINE Inact krishna CEPHALEXIN 500 MG TABS Take one by mouth four times daily, morning, noon, early evening and bedtime. CEPHALEXIN 500 MG TABS 606568 CEPHALEXIN Inactive LORTAB 5 5-500 MG TABS 1/2 to 1 tablet by mouth go ry 6 hours as needed for pain LORTAB 5 5-500 MG TABS HYDROCODONE-A CETAMINOPHEN Inactive AMITRIPTYLINE HCL 25 MG TAB 1 tab by mouth daily 60 minutes before bedtime AMITRIPTYLINE HCL 25 MG TAB 882800 AMITRIPTYLINE HCL Inactive AMOXICILLIN 500 MG TABS 2 tabs PO bid x 10 d 7 AMOXICILLIN 500 MG TABS 198037 AMOXICILLIN Inactive IMPLANON 68 MG IMPL IMPLANTED IN LEFT ARM IMPLANON 68 MG IMPL ETONOGESTREL Inactive HYDROCODONE-ACETAMINOPHEN 5-325 MG TABS 1 PO tid PRN pain 5 HYDROCODONE-ACETAMINOPHEN 5-325 MG TABS 525872 HYDROCODONE-ACETAMIN OPHEN Inactive BACTRIM DS 800-160 MG TAB 1 tab by mouth twice daily 2 BACTRIM DS 800-160 MG TAB TRIMETHOPRIM-SULFAMETHOXAZOLE Inac tive CEPHALEXIN 500 MG CAPS 1 PO bid x 7 days CEPHALEXIN 500 MG CAPS 925722 CEPHALEXIN Inactive HYDROCODONE-ACETAMINOPHEN 5-325 MG TABS 1 tab by mouth every 6 hours as needed HYDROCODONE-ACETAMINOPHEN 5-325 MG TABS 971530 HYDROCODONE-ACETAMINOPHEN Inactive PROMETHAZINE-CODEINE 6.25-10 MG/5ML SYRP 1 tsp every 6 hrs prn c ough PROMETHAZINE-CODEINE 6.25-10 MG/5ML SYRP 539656 PROMETH AZINE-CODEINE Inactive IBUPROFEN 800 MG TAB 1 pill three times daily as needed for pain IBUPROFEN 800 MG TAB IBUPROFEN Inactive KEFLEX 500 MG CAP 1 tab po tid KEFLEX 500 MG CAP 114429 CEPHALEXIN Inactive HYDROCODONE-ACETAMINOPHEN 7.5-325 MG TABS 1 four times a day as needed for pain HYDROCODONE-ACETAMINOPHEN 7.5-325 MG TABS 552287 HYDROCODONE-ACETAMINOPHEN Inactive BACTRIM DS 800-160 MG TABS by mouth twice a day 11/05 BACTRIM DS 800-160 MG TABS SULFAMETHOXAZOLE-TRIMETHOPRIM Inactive IBUPROFEN 800 MG TABS 1 tid prn IBUPROFEN 800 MG TABS 812602 IBUPROFEN Inactive ENDOCET 10-325 MG TABS 1 q 6 hr prn ENDOC ET 10-325 MG TABS 8870429 OXYCODONE-ACETAMINOPHEN Inactive HYDROCODONE-ACETAMINOPHEN 7.5-325 MG TABS 1 by mouth e very 6 hours as needed for pain HYDROCODONE-ACETAMINOPHEN 7.5-325 MG TABS 885861 HYDROCODONE-ACETAMINOPHEN Inactive PERCOCET 7.5-325 MG TABS 1 PO q 8 hrs PRN pain PERCOCET 7.5-325 MG TABS 6565743 OXYCODONE-ACETAMINOPHEN Inactive LIDODERM 5 % PTCH One patch to painful area SC N. On for 12 hrs, off for 12 hrs. LIDODERM 5 % PTCH 6966178 LIDOCAINE Inactiv e PERCOCET 7.5-325 MG TABS 1 PO tid PRN pain PERCOCET 7.5- 325 MG TABS 5982268 OXYCODONE-ACETAMINOPHEN Inactive MOBIC 15 MG TABS 1 tab daily MOBIC 15 MG TABS 15 2695 MELOXICAM Inactive CYCLOBENZAPRINE HCL 10 MG TABS 1/2 - 1 tab PO tid PRN back p ain, muscle spasm CYCLOBENZAPRINE HCL 10 MG TABS 074133 CYCLOBENZA JOSEPH HCL Inactive LORATADINE 10 MG TABS 1 tablet by mouth daily LORATADINE 10 MG TABS 098199 LORATADINE Inactive HYDROCODONE-ACETAMINOPHEN 10-325 MG TABS 1 by mouth ev chaka 8 hours as needed for pain HYDROCODONE-ACETAMINOPHEN 10-325 MG TABS 364461 HYDROCODONE-ACETAMINOPHEN Inactive LC-5 LIDOCAINE 5 % CREA apply 1 time daily to affected area 2013 LC-5 LIDOCAINE 5 % CREA LIDOCAINE (ANORECTAL) In active PERCOCET 5-325 MG TAB 1 every 6 hours as needed PERCOCET 5-325 MG TAB 7493732 OXYCODONE-ACETAMINOPHEN Inactive KEFLEX 500 MG CAP 1 po qid KEFLEX 500 MG CAP 30 14 CEPHALEXIN Inactive PROAIR HFA 108 (90 BASE) MCG/ACT AERS 2 puff q 4-6 hrs PRN 01/24 PROAIR HFA 108 (90 BASE) MCG/ACT AERS ALBUTEROL SULFATE Inactive PERCOCET 10-325 MG ORAL TABS 1 every 4 hours as needed PERCOCET 10-325 MG ORAL TABS 9400641 OXYCODONE-ACETAMINOPHEN Inactiv e EMLA 2.5-2.5 % EXT CREA apply to skin lesion q 6 hours, prn 2014 EMLA 2.5-2.5 % EXT CREA 283831 LIDOCAINE-PRILOCAINE [place] ctive PERCOCET 10-325 MG TABS 1 tab by mouth every 6 hours , use sparingly for severe pain PERCOCET 10-325 MG TABS 7014155 OXYCODONE-ACETAMINOPHEN Inactive GLUCOPHAGE 500 MG ORAL TABS one by mouth 3 times a day GLUCOPHAGE 500 MG ORAL TABS 195680 METFORMIN HCL Inactive HYDROCODONE-ACETAMINOPHEN 5-325 MG TABS 1 po q6hr PRN pain 06/30 HYDROCODONE-ACETAMINOPHEN 5-325 MG TABS 149030 HYDROCOD ONE-ACETAMINOPHEN Inactive AMOXICILLIN 875 MG TABS 1 tab by mouth twice daily 201 07/18/07 AMOXICILLIN 875 MG TABS 105895 AMOXICILLIN Inactive KEFLEX 500 MG CAP 1 po tid x 10 days KEFLEX 500 MG CAP 107565 CEPHALEXIN Inactive AMOXICILLIN 875 MG TABS 1 tab by mouth twice daily 201 07/19/27 AMOXICILLIN 875 MG TABS 361859 AMOXICILLIN Inactive AMOXICILLIN 875 MG TABS 1 tab by mouth twice daily 201 08/09/13 AMOXICILLIN 875 MG TABS 865618 AMOXICILLIN Inactive CIPRO 500 MG TAB 1 tablet by mouth twice daily CIPRO 500 MG TAB 462201 CIPROFLOXACIN HCL Inactive BACTRIM DS 800-160 MG TAB 1 tab by mouth twice daily 2 BACTRIM DS 800-160 MG TAB TRIMETHOPRIM-SULFAMETHOXAZOLE Inac tive LEVAQUIN 500 MG TABS 1 PO q day x 7 days LEVAQUIN 500 MG TABS 543229 LEVOFLOXACIN Inactive CLINDAMYCIN HCL 300 MG CAPS 1 po QID x 7 days CLINDAMYCIN HCL 300 MG CAPS 629561 CLINDAMYCIN HCL Inactive AUGMENTIN 875-125 MG TAB 1 tab by mouth twice daily with food 20 22/05/07 AUGMENTIN 875-125 MG TAB 868124 AMOXICILLIN-POT [place]ULA [place] Inactive DIFLUCAN 150 MG TAB 1 qODay x 2 doses DIFLUCAN 150 MG TAB 020413 FLUCONAZOLE Inactive PREDNISONE 20 MG TAB 2 tabs daily for 3 days, 1 t ab daily for 3 days, 1/2 tab daily for 2 days PREDNISONE 20 MG TAB 521802 PREDNISON E Inactive AUGMENTIN 875-125 MG TAB 1 tab by mouth twice daily with food 21/10/13 AUGMENTIN 875-125 MG TAB 925570 AMOXICILLIN-POT CLAVULA [place] Inactive Advance Directives Directive Description Start Date PERMISSION TO SHARE Immunizations Vaccine Administration Date Value Standard Alf cription Seasonal influenza vaccine, injectable, containing preservative, for > 3 years old (Afluria, FluLaval, Fluzone, Fluvirin, Fluarix, Agriflu(>= 18 yo)) Fluzone (>3 yrs.) [[id number]] Influenza, seasonal, inject able Seasonal influenza vaccine, injectable, preservative free, for > 3 years old (Afluria, FluLaval, Fluzone, Fluvirin, Fluarix, Agriflu(>= 18 yo)) Fluzone preservative free (>3 yrs.) [[id number]] Influenza, seasonal, injectable, preservative free Seasonal influenza vaccine, injectable, containing preservative, for > 3 years old (Afluria, FluLaval, Fluzone, Fluvirin, Fluarix, Agriflu(>= 18 yo)) Fluzone (>3 yrs.) [[id number]] Influenza, seasonal, inject able Seasonal influenza vaccine, injectable, containing preservative, for > 3 years old (Afluria, FluLaval, Fluzone, Fluvirin, Fluarix, Agriflu(>= 18 yo)) Fluzone (>3 yrs.) [[id number]] Influenza, seasonal, inject able dT (Diphtheria and Tetanus) booster given Histor ical Td(adult) unspecified formulation Vital Signs Date Name Value Unit Range Description blood pressure, diastolic - 8462-4 89 mm[Hg] BP ribeiro blood pressure, systolic - 8480-6 140 mm[Hg] BP sys pulse rate E&M - 8867-4 73 /min H eart rate temperature E&M 97.6 [degF] Body temp erature weight E&M - 3141-9 229.6 [lb_av] Weigh t Measured blood pressure, diastolic - 8462-4 86 mm[Hg] BP ribeiro blood pressure, systolic - 8480-6 126 mm[Hg] BP sys pulse rate E&M - 8867-4 75 /min H eart rate temperature E&M 97.3 [degF] Body temp erature weight E&M - 3141-9 231.4 [lb_av] Weigh t Measured blood pressure, diastolic - 8462-4 99 mm[Hg] [...] - 3141-9 241 [lb_av] Weigh t Measured Diagnostic Results Date Name Value Unit Range Description Lab Report: CBC - Hematology leukocyte count, blood 9.1 10^3/MM^3 10*3/mm3 4.6-10.2 erythrocyte (RBC) count 5.08 10^6/MM^3 10*6/mm3 4.04-5.4 8 hemoglobin, blood 15.4 g/dL 12.0-16.0 hematocrit, blood 44.6 % 36.0-46.0 mean corpuscular volume, RBC 88 fL 80-97 mean corpuscular hemoglobin, RBC 30.2 pg 27. 0-31.2 mean corpuscular hemoglobin concentration, RBC 34.5 G/DL % 31.8-35.4 red blood cell distribution width 13.4 % 11 .6-14.8 platelet count 294 10^3/MM^3 10*3/mm3 142-424 Lab Report: CBC, Comp. Metabolic Panel - Chemistry sodium, serum 142 mmol/L 287-869 9936/05/12 potassium, serum 4.8 mmol/L 3.5-5.2 chloride, serum [...] Panel - Chemistry cholesterol, serum 165 mg/dL [phone]/05/12 triglyceride, serum, fasting 524 mg/dL 30-200 HDL cholesterol, serum 24 mg/dL 32-96 Office Visit: CN bladder problems - Mariah jesus RBC, urine, dipstick negative protein, total urine random negative mg/dL Office Visit: CN bladder problems - Uri [...] negative Encounters Code Encounter Date Provider Facility CPT-54813 Level 3 Est. Patient 14:29:53 CDT Abhinav Galvan MD [facility] CPT-68694 Level 2 Est. Patient 16:33:01 CDT Kalpesh goins MD [facility] CPT-50141 Level 4 Est. Patient 16:44:56 CDT Abdirahman Rios MD [facility] CPT-26201 Level 2 Est. Patient 07:49:32 CDT Kalpesh goins MD [facility] CPT-31153 Level 3 New Patient 15:47:11 [employer]PORT [employer] MANAGER Bj huber MD [facility] CPT-62825 Level 4 Est. 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 Patient 13:32:17 AIRPORT OPERATIONS MANAGER Kalpesh goins MD [facility] Unit-[id number] Level 3 Est. Patient 17:32:57 AIRPORT OPERATIONS MANAGER Edilberto tiwari [facility] CPT-21129 Level 3 Est. Patient 17:22:33 AIRPORT OPERATIONS MANAGER Edilberto tiwari [facility] CPT-84151 Level 2 Est. Patient 16:57:09 AIRPORT OPERATIONS MANAGER Kalpesh goins [facility] Unit-52057 Level 3 Est. Patient 14:03:08 AIRPORT OPERATIONS MANAGER Abdirahman Rios MD [facility] CPT-07843 Level 3 Est. Patient 18:12:34 CDT Shola Wright [facility] CPT-26310 Level 3 Est. Patient 19:34:46 CDT Sohla Wright [facility] CPT-46125 Level 3 Est. Patient 14:19:37 CDT Abdirahman Rios MD [facility] CPT-67841 Level 3 Est. Patient 14:11:58 CDT Kalpesh goins MD [facility] CPT-66874 Level 3 Est. Patient 16:50:00 CDT Michelle MERCADO [facility] CPT-96637 Level 3 Est. Patient 17:11:32 AIRPORT OPERATIONS MANAGER Brandie bates MD PhD [facility] CPT-58758 Level 3 Est. Patient 16:31:47 AIRPORT OPERATIONS MANAGER Shola Wright [facility] CPT-36803 Level 3 Est. Patient 17:51:10 AIRPORT OPERATIONS MANAGER Abhinav Galvan MD [facility] CPT-89807 Level 4 Est. Patient 12:54:56 AIRPORT OPERATIONS MANAGER Kalpesh goins MD [facility] CPT-56619 Level 4 Est. Patient 12:53:56 AIRPORT OPERATIONS MANAGER Kalpesh goins MD [facility] Unit-73333 Level 3 Est. Patient 17:56:58 CDT Shola Thao Adriana [facility] CPT-53750 Level 3 Est. Patient 14:26:20 CDT Janak butcher [facility] CPT-87675 Level 3 Est. Patient 09:38:41 CDT Shola Thao [facility] CPT-78734 Level 3 Est. Patient 14:45:26 CDT Edilberto tiwari [facility] CPT-03260 Level 3 Est. Patient 10:51:33 CDT Hira muniz [facility] CPT-50883 Level 3 Est. Patient 11:57:55 AIRPORT OPERATIONS MANAGER Shola Wright [facility] CPT-63201 Level 3 Est. Patient 09:53:33 AIRPORT OPERATIONS MANAGER Edilberto tiwari [facility] CPT-14009 Level 3 Est. Patient 14:42:54 AIRPORT OPERATIONS MANAGER Abhinav Galvan MD [facility] CPT-81712 Level 3 Est. Patient 15:10:02 CDT Janak butcher [facility] CPT-80248 Level 3 Est. Patient 15:20:20 CDT Theo dennis MD [facility] CPT-09957 Level 2 Est. Patient 14:08:57 CDT Kalpesh goins MD [facility] CPT-25271 Level 3 Est. Patient 13:56:19 CDT Abdirahman Rios MD [facility] CPT-35430 Level 3 Est. Patient 13:59:37 CDT Abdirahman Rios MD [facility] CPT-72292 Level 2 Est. Patient 14:44:59 CDT Kalpesh goins MD [facility] CPT-90036 Level 3 Est. Patient 06:06:23 CDT Edilberto tiwari DO [facility] CPT-96986 Level 3 Est. Patient 15:23:54 CDT Abdirahman Rios MD [facility] CPT-48155 Level 3 Est. Patient 15:43:49 CDT Abdirahman Rios MD [facility] CPT-69943 Level 3 Est. Patient 12:46:47 AIRPORT OPERATIONS MANAGER Abdirahman Rios MD [facility] CPT-92020 Level 3 Est. Patient 08:13:35 AIRPORT OPERATIONS MANAGER Abdirahman Rios MD [facility] CPT-33542 Level 2 Est. Patient 09:36:42 AIRPORT OPERATIONS MANAGER Abdirahman Rios MD [facility] CPT-51962 Level 3 Est. Patient 10:56:43 CDT Abdirahman Rios MD [facility] CPT-47704 Level 3 Est. Patient 18:24:52 CDT Abdirahman Rios MD [facility] CPT-75152 Level 3 Est. Patient 13:27:22 CDT Abdirahman Rios MD [facility] Procedures Code Procedure Name Date Entry Date Standard Desc ription CPT-74241 Venipuncture Draw Fee 14:27:29 CDT CPT-84931 Postop F/U Visit 15:27:43 CDT CPT-00575 Postop F/U Visit 14:40:59 CDT CPT-79386 Postop F/U Visit 15:02:46 CDT CPT-83036 Postop F/U Visit 11:29:00 AIRPORT OPERATIONS MANAGER CPT-J0696 Rocephin 1000 mg (Ceftriaxone) 17:22:33 AIRPORT OPERATIONS MANAGER CPT-16951 Postop F/U Visit 18:41:07 AIRPORT OPERATIONS MANAGER CPT-07983 Postop F/U Visit 08:19:08 AIRPORT OPERATIONS MANAGER CPT-16811 Immunization Single Admin 16:41:53 CDT 2013 CPT-72496 Fluzone Quadrivalent Intramuscular Suspe nsion 0.5 ML 16:41:53 CDT CPT-OV Office Visit 16:39:18 CDT CPT-OV Office Visit 16:16:36 CDT CPT-OV Office Visit 15:34:48 CDT CPT-29160 Postop F/U Visit 14:50:12 CDT CPT-42899 Postop F/U Visit 14:41:10 CDT CPT-91048 Venipuncture Draw Fee 11:38:04 AIRPORT OPERATIONS MANAGER CPT-45465 Postop F/U Visit 19:02:59 AIRPORT OPERATIONS MANAGER CPT-80696 Postop F/U Visit 12:04:54 AIRPORT OPERATIONS MANAGER CPT-72362 Administration single or combination vac cine inc oral 15:56:43 CDT CPT-33502 Influenza split virus > age 3 15:56:43 CDT CPT-02461 Hand comp min 3V 14:25:19 CDT CPT-34556 Postop F/U Visit 21:40:51 CDT CPT-73017 Postop F/U Visit 10:58:43 CDT CPT-68673 Administration single or combination vac cine inc oral 12:33:54 AIRPORT OPERATIONS MANAGER CPT-26473 Influenza Preservative Free split virus >age 3 12:33:54 AIRPORT OPERATIONS MANAGER CPT-31685 Administration single or combination vac cine inc oral 09:30:51 CDT CPT-89626 Influenza split virus > age 3 09:30:51 CDT CPT-98843 Postop F/U Visit 15:14:53 CDT CPT-79670 Postop F/U Visit 13:50:14 CDT CPT-70647 Postop F/U Visit 13:34:52 CDT CPT-OV Office Visit 16:55:03 CDT CPT-12291 Muddy of cervix w bx ECC 13:32:50 CDT 10/19 CPT-J1885 Toradol 60 mg (Ketorolac) 15:31:59 CDT 2011 CPT-J1885 Toradol 60 mg (Ketorolac) 15:23:54 CDT 2011 CPT-98414 Visit 11:34:37 AIRPORT OPERATIONS MANAGER CPT-10595 Visit 10:52:39 AIRPORT OPERATIONS MANAGER CPT-63904 Visit 10:12:02 AIRPORT OPERATIONS MANAGER CPT-96876 Visit 11:22:43 AIRPORT OPERATIONS MANAGER CPT-66198 Visit 11:24:12 AIRPORT OPERATIONS MANAGER CPT-68525 Visit 10:47:05 AIRPORT OPERATIONS MANAGER CPT-OV Office Visit 10:26:16 AIRPORT OPERATIONS MANAGER CPT-OV Office Visit 15:34:31 AIRPORT OPERATIONS MANAGER CPT-61796 Visit 10:42:08 AIRPORT OPERATIONS MANAGER CPT-90384 Visit 10:52:45 AIRPORT OPERATIONS MANAGER CPT-000 Give Appropriate Flu Vaccine 16:56:41 CDT 2 CPT-96439 Administration single or combination vac cine inc oral 10:33:21 CDT CPT-82637 Influenza split virus > age 3 10:33:21 CDT CPT-79125 Visit 13:23:09 CDT CPT-71047 Visit 18:24:52 CDT CPT-44199 Sono OB comp > 14 weeks 12:07:49 CDT 04/07
--- OUTSIDE RECORDS SUMMARY | 2020-01-18 15:45 | XMS REPORT | Clinical Summary ---
Author Author Admin, Jeri Rashid Organization [employer] Address Unknown Phone Unavailable Allergies, Adverse Reactions, Alerts Allergy Name Reaction Description Start Date Severity Status Pr ovider SULFA Critical Active Jillina Frazel l LATIN PROFESSOR TORADOL Rash Severe Active Rajni Yokjagjit [place] RN BACTRIM Critical Active Kalpesh Dong MD ZITHROMAX rash all over Critical Active Darya H aubrey LATEX rash Moderate Active Daryamikhail Ramseyk man Conditions or Problems Problem Name Problem [...] Resolved Abdirahman Rios MD Acute sinusitis, unspecified SINUSITIS, ACUTE 461.9 Resolved Abdirahman Rios MD [...] and subcutaneous tissue VAGINAL DISCHARGE 623.5 Resolved Abdirhaman Rios MD Leukorrhea, not specified as infective [...] Martin Lumbago BACK PAIN, LUMBAR, CHRONIC 724.2 Resolved Abdirahman Rios MD Lumbago Dysmenorrhea, severe 625.3 Resolved Kalpesh bernal [...] NEC Abscess, perirectal 566 Active Hira roman APRN Abscess of anal and rectal regions Hypertriglyceridemia 272.1 Active Abdirahman restrepo MD Pure hyperglyceridemia FH Diabetes V18.0 Active Kalpesh Dong MD Family history of diabetes mellitus Medication monitoring V58.69 Active Gabriela Goodwin Michaela Long-term (current) use of other medications Aftercare following surgery of the skin and subcutaneous tis braden, NEC V58.77 Resolved Abdirahman Rios MD Aftercare following surgery of the skin and subcutaneous tissue, NEC Sciatica, left 724.3 Active Abdirahman Rios MD Sciatica Patellofemoral disorder, 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 Active 04/22 Abdirahman Rios MD Other internal derangement of knee Depression 311 Active Abdirahman Rios MD Depressive disorder, not elsewhere classified Pilondal Cyst w/o Abscess Active Kalpesh Dong MD Pilonidal cyst without mention of abscess Interstitial Cystitis Active Bj marie MD Chronic interstitial cystitis Chronic pain syndrome 338.4 Active Rajni Alcazar APRN Chronic pain syndrome AFTERCARE FOLLOW SURGERY SKIN&SUBCUT TISSUE NEC V58.77 08/23 Active Kalpesh Dong MD Aftercare following surgery of the skin and subcutaneous tissue, NEC Elevated blood pressure without diagnosis of hypertension 796.2 Active Abdirahman Rios MD Elevated bloo d pressure reading without diagnosis of hypertension Smoking motivated to quit 305.1 Active Baldemar Rios MD Tobacco use disorder Pain at surgical incision 782.0 Active Hira Moser LATIN PROFESSOR Disturbance of skin sensation , INCIDENTAL PROBLEM ICD-V22.2 Inacti ve Abdirahman [...] FAMILY PLANNING ICD-V25.09 Jose M Julian MD 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 Stormy Julian MD ENCOUNTER FOR THERAPEUTIC DRUG MONITORING ICD-V58.83 Inactive Good Julian MD AMENORRHEA ICD-626.0 Inactive Good sierra MD AFTERCARE FLW SURG TEETH ORL CAV&DIGESTV SYS NEC ICD-V58.75 Inactive Good Julian MD ACUTE BRONCHITIS ICD-466.0 Inactive Good Julian MD JAW PAIN ICD-526.9 Inactive Good collier MD DENTAL CARIES ICD-521.00 Inactive Good Maots MD ABSCESS, INNER THIGH ICD-682.6 Inactive Moni [...] MD BACK PAIN, LUMBAR, CHRONIC ICD-724.2 Inactive Baldemar Rios MD Dysmenorrhea, severe ICD-625.3 Inactive Kalpesh Dong [...] TISSUE NEC ICD-V58.77 Inactive Abdirahman Rios MD Aftercare following surgery of the skin and subcutaneous tis braden, NEC ICD-V58.77 Inactive Abdirahman Rios MD Medication List Medication Instructions Start Date Stop Date Generic Name NDC Status Provider Patient Instruction EMLA 2.5-2.5 % EXT CREA apply tid, prn LIDOCAIN E-PRILOCAINE [id number] Active Jillina Frajalenl LATIN PROFESSOR Active PERCOCET 5-325 MG TAB 1 tab po q 6 hours, prn OXYCODONE-ACETAMINOPHEN 62008396402 Active Jillina Frajalenl LATIN PROFESSOR Active ORVOVNZHIT-VZMZ-EEDZUEQG 50-325-40 MG ORAL TABS 1 po TID PRN Headaches NBKEVEDPZE-VOMR-SVRNVTLO 18280352545 No Longer Active Jillina Karmenl LATIN PROFESSOR Active GLYDO 2 % EXT GEL apply to painful areas as needed 201 12/10/13 LIDOCAINE HCL 82714550133 No Longer Active Jillina Karmenl LATIN PROFESSOR Ac tive PERCOCET 10-325 MG ORAL TABS 1 every 4 hous as needed OXYCODONE-ACETAMINOPHEN 03659819501 No Longer Active Jillina Karmenl LATIN PROFESSOR Active LC-4 LIDOCAINE 4 % EXT CREA apply to painful area every 12 h ours or as needed LIDOCAINE 67770978130 No Longer Active Jillina Fra janee LATIN PROFESSOR Active CHANTIX STARTING MONTH MARGARITA 0.5 MG X 11 & 1 MG X 42 TAB S 0.5mg daily for 3 days, then 0.5mg BID for 4 days, then 1mg BID VARENICL INE TARTRATE 61827670494 Active Abdirahman Rios MD Active AMOXICILLIN 500 MG CAPS 2 po BID x 10 days AMOX ICILLIN 99081445888 No Longer Active Abdirahman Rios MD Active PROMETHAZINE HCL 25 MG TABS 1 four times a day as needed for nausea/vomiting PROMETHAZINE HCL 03984140579 No Longer Active Abdirahman Rios MD Active LC-4 LIDOCAINE 4 % EXT CREA apply q 6 hours, prn 08/03 LIDOCAINE 01386423916 No Longer Active Kalpesh Dong MD Active PERCOCET 10-325 MG TABS 1 tablet every 8 hours as needed for antonia n OXYCODONE-ACETAMINOPHEN 69969271034 No Longer Active Kalpesh Dong MD Active HYDROCODONE-ACETAMINOPHEN 5-325 MG TABS 1 tab by mouth every 6 hours as needed for pain HYDROCODONE-ACETAMINOPHEN 23561481880 No Longer Active Kalpesh Dong MD Active AUGMENTIN 875-125 MG TAB 1 tab by mouth twice daily with food 20 23/05/16 AMOXICILLIN-POT CLAVULANATE 07935621334 No Longer Active Lizeth hi Yokum LATIN PROFESSOR 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 FLUTICASONE PROPIONATE 58674212951 No Longer Ac tive Rajni Yokum LATIN PROFESSOR Active PERCOCET 10-325 MG ORAL TABS take 1 tab by mouth q 4hours as needed for pain OXYCODONE-ACETAMINOPHEN 45428721479 No Longer Active Rajni Yokum LATIN PROFESSOR Active PERCOCET 10-325 MG ORAL TABS one every 6 hours prn pain OXYCODONE-ACETAMINOPHEN 81099891371 No Longer Active Rajni Yokum LATIN PROFESSOR Active IBUPROFEN 800 MG TABS 1 tab po tid, with food I BUPROFEN 72914034007 Active Jillina Frazell LATIN PROFESSOR Active DICLOFENAC SODIUM 50 MG TBEC 1 tablet by mouth four times da tom PRN Pain DICLOFENAC SODIUM 81553870642 No Longer Active Rajni Yokum LATIN PROFESSOR Active VIIBRYD 10 & 20 & 40 MG KIT 1 po qd as directed 07/24 VILAZODONE HCL 28878224797 No Longer Active Rajni Yokum LATIN PROFESSOR Active ONDANSETRON 4 MG TBDP 1 q4h PRN nausea ONDANSET KELBY 40448645538 No Longer Active Rajni Yoyanaum LATIN PROFESSOR Active PERCOCET 10-325 MG TABS 1 tablet every 8 hours as needed for antonia n OXYCODONE-ACETAMINOPHEN 59443994968 No Longer Active Rajni cox LATIN PROFESSOR Active HYDROCODONE-ACETAMINOPHEN 5-325 MG TABS 1 po TID PRN Pain 9 HYDROCODONE-ACETAMINOPHEN 50493441977 No Longer Active Abdirahman Rios MD Active CXHTCGHSAR-JTY-ONSWOAAP 50-325-40 MG ORAL CAPS 1-2 po TID OK N Headache DSNQFFPPFM-NOIYKZH-CZWSYPJO 71785153673 No Longer Act krishna Kalpesh Dong MD Active ALPRAZOLAM 0.5 MG TABS 1 po BID PRN Anxiety ALP RAZOLAM 92584143099 No Longer Active Kalpesh Dong MD Active TRAZODONE HCL 100 MG TAB 0.5 to 1 po qHS PRN Insomnia TRAZODONE HCL 52534587700 No Longer Active Kalpesh Dong MD Activ e HYDROCODONE-ACETAMINOPHEN 5-325 MG TABS 1 po q6hr PRN Pain 04/09 HYDROCODONE-ACETAMINOPHEN 69673784387 No Longer Active Kalpesh Dong MD Active CYMBALTA 30 MG CPEP 1 cap by mouth daily DULOXE CLEO HCL 52698188862 No Longer Active Abdirahman Rios MD Active IBUPROFEN 600 MG ORAL TABS 1 by mouth twice a day 2014 IBUPROFEN 38341273712 No Longer Active Abdirahman Rios MD Activ e PERCOCET 5-325 MG TAB 1 tab po q 6 hours, prn severe pain 1 OXYCODONE-ACETAMINOPHEN 03400166765 No Longer Active Abdirahman Rios MD Active SPRINTEC 28 0.25-35 MG-MCG TABS 1 pill by mouth daily for bi rth control NORGESTIMATE-ETH ESTRADIOL 90344606985 No Longer Acti ve Matthewllina Joyzell LATIN PROFESSOR Active CYCLOBENZAPRINE HCL 10 MG TABS 1 tablet by mouth three times daily as needed for muscle spasm/pain CYCLOBENZAPRINE HCL 30519099368 No Longer Active Jillina Frazell LATIN PROFESSOR Active HYDROCODONE-ACETAMINOPHEN 5-325 MG TABS 1 po q6hr PRN Pain 03/09 HYDROCODONE-ACETAMINOPHEN 11692025646 No Longer Active Matthewllina Joyzel l LATIN PROFESSOR Active AUGMENTIN 500-125 MG ORAL TABS 1 by mouth twice a day AMOXICILLIN-POT CLAVULANATE 84562951672 No Longer Active Jillina Frazell LATIN PROFESSOR Active DICLOFENAC SODIUM 50 MG TBEC 1 tablet by mouth four times da tom PRN Pain DICLOFENAC SODIUM 49614643647 No Longer Active Jillin a Karmenl LATIN PROFESSOR Active PROMETHAZINE HCL 25 MG TABS 1 four times a day as needed for nausea/vomiting PROMETHAZINE HCL 49931798953 No Longer Active Abdirahman Rios MD Active HYDROCODONE-ACETAMINOPHEN 5-325 MG TABS 1 tab by mouth every 6 hours as needed PRN Pain HYDROCODONE-ACETAMINOPHEN 70471352572 No Longer Active Abdirahman Rios MD Active GEMFIBROZIL 600 MG TABS 1 po BID GEMFIBROZIL 54170779 005 Active Abdirahman Rios MD Active PERCOCET 5-325 MG ORAL TABS 1 every 6 hours as needed OXYCODONE-ACETAMINOPHEN 40499595775 No Longer Active Abdirahman Rios MD Active PERCOCET 5-325 MG TAB 1 tab po q 6 -8 hours, prn for severe pain OXYCODONE-ACETAMINOPHEN 70993038147 No Longer Active Abdirahman Rios MD Active HYDROCODONE-ACETAMINOPHEN 5-325 MG TABS 1 po q6hr PRN pain 06/30 HYDROCODONE-ACETAMINOPHEN 26610052304 No Longer Active Hira roman LATIN PROFESSOR Active GLUCOPHAGE 500 MG ORAL TABS one by mouth 3 times a day METFORMIN HCL 90024823345 No Longer Active Karenina Shanti LATIN PROFESSOR Ac tive PERCOCET 10-325 MG TABS 1 tab by mouth every 6 hours , use sparingly for severe pain OXYCODONE-ACETAMINOPHEN 03627609421 No Longer A ctive Abdirahman Rios MD Active EMLA 2.5-2.5 % EXT CREA apply to skin lesion q 6 hours, prn 2014 LIDOCAINE-PRILOCAINE 44222957866 No Longer Active Abdirahman Rios MD Active PERCOCET 10-325 MG ORAL TABS 1 every 4 hours as needed OXYCODONE-ACETAMINOPHEN 37922735705 No Longer Active Abdirahman Rios MD Active AUGMENTIN 875-125 MG TAB 1 tab by mouth twice daily with food 20 21/10/13 AMOXICILLIN-POT CLAVULANATE 87851300646 No Longer Active Ursula Moser APRN Active PROAIR HFA 108 (90 BASE) MCG/ACT AERS 2 puff q 4-6 hrs PRN 01/24 ALBUTEROL SULFATE 14113603213 No Longer Active Kalpesh Dong MD Active PREDNISONE 20 MG TAB 2 tabs daily for 3 days, 1 t ab daily for 3 days, 1/2 tab daily for 2 days PREDNISONE 16939679546 No Longer Active Abdirahman Rios MD Active KEFLEX 500 MG CAP 1 po qid CEPHALEXIN 265155088 20 No Longer Active Kalpesh Dong MD Active PERCOCET 5-325 MG TAB 1 every 6 hours as needed OXYCODONE-ACETAMINOPHEN 66552543970 No Longer Active Shola MCGILL Active LC-5 LIDOCAINE 5 % CREA apply 1 time daily to affected area 2013 LIDOCAINE (ANORECTAL) 73674759048 No Longer Active Jillina F razell LATIN PROFESSOR Active HYDROCODONE-ACETAMINOPHEN 10-325 MG TABS 1 by mouth ev chaka 8 hours as needed for pain HYDROCODONE-ACETAMINOPHEN 18684893703 No Longer Active Jillina Joyzell LATIN PROFESSOR Active LORATADINE 10 MG TABS 1 tablet by mouth daily L ORATADINE 89687652788 No Longer Active Jillina Frazell LATIN PROFESSOR Active DIFLUCAN 150 MG TAB 1 qODay x 2 doses FLUCONAZO LE 82934398635 No Longer Active Jillina Frazell LATIN PROFESSOR Active CYCLOBENZAPRINE HCL 10 MG TABS 1/2 - 1 tab PO tid PRN back p ain, muscle spasm CYCLOBENZAPRINE HCL 89664545783 No Longer Active Karen herson Frazell LATIN PROFESSOR Active AUGMENTIN 875-125 MG TAB 1 tab by mouth twice daily with food 20 22/05/07 AMOXICILLIN-POT CLAVULANATE 67914080582 No Longer Active Loida Rios MD Active MOBIC 15 MG TABS 1 tab daily MELOXICAM 769065117 14 No Longer Active Abdirahman Rios MD Active PERCOCET 7.5-325 MG TABS 1 PO tid PRN pain OXYCODONE-ACETAMINOPHEN 01452466500 No Longer Active Abdirahman Rios MD Active LIDODERM 5 % PTCH One patch to painful area OK N. On for 12 hrs, off for 12 hrs. LIDOCAINE 96172636497 No Longer Active Abdirahman Rios MD Active PERCOCET 7.5-325 MG TABS 1 PO q 8 hrs PRN pain OXYCODONE-ACETAMINOPHEN 58730152040 No Longer Active Shola MCGILL Active HYDROCODONE-ACETAMINOPHEN 7.5-325 MG TABS 1 by mouth e very 6 hours as needed for pain HYDROCODONE-ACETAMINOPHEN 52101839193 No Longer Active Good Julian MD Active CLINDAMYCIN HCL 300 MG CAPS 1 po QID x 7 days CLINDAMYCIN HCL 96688144453 No Longer Active Abdirahman Rios MD Activ e BACTRIM DS 800-160 MG TABS 1 po BID x 7 days 5 SULFAMETHOXAZOLE-TRIMETHOPRIM 67671683125 No Longer Active Abdirahman Rios MD Active ENDOCET 10-325 MG TABS 1 q 6 hr prn OXYCODONE-ACETAMINOPHEN 37739871439 No Longer Active Abdirahman Rios MD Active IBUPROFEN 800 MG TABS 1 tid prn IBUPROFEN 367658 46280 No Longer Active Abdirahman Rios MD Active BACTRIM DS 800-160 MG TABS by mouth twice a day 11/05 SULFAMETHOXAZOLE-TRIMETHOPRIM 57186297127 No Longer Active Good Julian MD Active HYDROCODONE-ACETAMINOPHEN 7.5-325 MG TABS 1 four times a day as needed for pain HYDROCODONE-ACETAMINOPHEN 68014418749 No Longer Activ e Good Julian MD Active KEFLEX 500 MG CAP 1 tab po tid CEPHALEXIN 179389 67484 No Longer Active Hira Moser APRN Active IBUPROFEN 800 MG TAB 1 pill three times daily as needed for pain IBUPROFEN 22030784769 No Longer Active Kalpesh Dong MD Active PROMETHAZINE-CODEINE 6.25-10 MG/5ML SYRP 1 tsp every 6 hrs prn c ough PROMETHAZINE-CODEINE 26307331429 No Longer Active Kalpesh Carr Active HYDROCODONE-ACETAMINOPHEN 5-325 MG TABS 1 tab by mouth every 6 hours as needed HYDROCODONE-ACETAMINOPHEN 08544567578 No Longer Activ e Shola MCGILL Active CEPHALEXIN 500 MG CAPS 1 PO bid x 7 days CEPHAL EXIN 25416301828 No Longer Active Shola MCGILL Active BACTRIM DS 800-160 MG TAB 1 tab by mouth twice daily 2 TRIMETHOPRIM-SULFAMETHOXAZOLE 31653171581 No Longer Active Kalpesh Dong MD Active HYDROCODONE-ACETAMINOPHEN 5-325 MG TABS 1 PO tid PRN pain 5 HYDROCODONE-ACETAMINOPHEN 56735186671 No Longer Active Abhinav Galvan MD Active IMPLANON 68 MG IMPL IMPLANTED IN LEFT ARM ETONO GESTREL 70584259621 No Longer Active Hira Moser APRN Active AMOXICILLIN 500 MG TABS 2 tabs PO bid x 10 d AM OXICILLIN 68135276637 No Longer Active Kalpehs Dong MD Active LEVAQUIN 500 MG TABS 1 PO q day x 7 days LEVOFL OXACIN 18302790083 No Longer Active Shola MCGILL Active AMITRIPTYLINE HCL 25 MG TAB 1 tab by mouth daily 60 minutes before bedtime AMITRIPTYLINE HCL 69443453595 No Longer Active Shola MCGILL Active LORTAB 5 5-500 MG TABS 1/2 to 1 tablet by mouth go ry 6 hours as needed for pain HYDROCODONE-ACETAMINOPHEN 41645747479 No Longer Active Shola MCGILL Active CEPHALEXIN 500 MG TABS Take one by mouth four times daily, morning, noon, early evening and bedtime. CEPHALEXIN 14784987643 No Long er Active Hira Moser APRN Active TYLENOL/CODEINE #3 300-30 MG TAB 1-2 po q6hr PRN Pain ACETAMINOPHEN-CODEINE 94133429809 No Longer Active Edilberto Marino DO Active PRISTIQ 50 MG IR43S-LVC 1 po qd DESVENLAFAXI NE SUCCINATE 08491039104 No Longer Active Edilberto Marino DO Active PENICILLIN V POTASSIUM 500 MG TAB 1 four times a day 2 PENICILLIN V POTASSIUM 14489087483 No Longer Active Edilberto Marino DO Active DOXYCYCLINE HYCLATE 100 MG CAPS Take one (1) tablet by mouth twice a day DOXYCYCLINE HYCLATE 99949946948 No Longer Active Ronnie Galvan MD Active HYDROCODONE-ACETAMINOPHEN 5-325 MG TABS 1 po q 6hr PRN Pain 2011 HYDROCODONE-ACETAMINOPHEN 07282567549 No Longer Active Rosari joan Perez RN Active BACTRIM DS 800-160 MG TAB 1 tab by mouth twice daily 2 TRIMETHOPRIM-SULFAMETHOXAZOLE 64601029857 No Longer Active Kalpesh Dong MD Active LORTAB 5 5-500 MG TABS 1/2 to 1 tablet by mouth go ry 4 hours as needed for pain HYDROCODONE-ACETAMINOPHEN 00842704686 No Longer Active Kalpesh Dong MD Active GENERESS FE 0.8-25 MG-MCG CHEW Take one by mouth daily NORETHIN-ETH ESTRADIOL-FE 45411814257 No Longer Active Kalpesh Dong MD Active HYDROCODONE-ACETAMINOPHEN 7.5-500 MG TABS 1-2 every 4 hours as needed HYDROCODONE-ACETAMINOPHEN 98990075514 No Longer Activ e Kalpesh Dong MD Active FERROUS SULFATE 325 (65 FE) MG TABS 1 tablet by mouth twice yung y FERROUS SULFATE 04361135209 No Longer Active Kalpesh Dong MD Active IBUPROFEN 600 MG TAB 1 po q6-8hr PRN IBUPROFEN 64650710503 No Longer Active Kalpesh Dong MD Active SPIRONOLACTONE 25 MG TAB 1 tablet by mouth daily 01/22 SPIRONOLACTONE 41890831414 No Longer Active Kalpesh Dong MD Acti ve HYDROCODONE-ACETAMINOPHEN 7.5-325 MG TABS 1 po QID PRN Pain 2011 HYDROCODONE-ACETAMINOPHEN 76177123771 No Longer Active Kalpesh Dong MD Active CLINDAMYCIN HCL 300 MG CAPS 1 po q6hr x 7 days CLINDAMYCIN HCL 36858192545 No Longer Active Edilberto Marino DO Active PREDNISONE 20 MG TAB 2 tabs daily for 4 days, 1 t ab daily for 4 days, 1/2 tab daily for 4 days PREDNISONE 57515332096 No Longer Active Edilberto Marino DO Active PERCOCET 5-325 MG TABS 1 tablet by mouth every 6 hours as ne eded for pain OXYCODONE-ACETAMINOPHEN 84783467753 No Longer Active Abdirahman Rios MD Active VITAMINS TABS Take one by mouth daily MV & MIN W/FE-FA TABS 58124131244 No Longer Active Abdirahman Rios MD Active LUIS 3-0.02 MG TABS 1 tablet by mouth daily as directed DROSPIRENONE-ETHINYL ESTRADIOL 77217878921 No Longer Active Abdirahman Rios MD Active LORATADINE 10 MG TABS 1 tablet by mouth daily L ORATADINE 65193873628 No Longer Active Kalpesh Dong MD Active HYDROCODONE-ACETAMINOPHEN 5-325 MG TABS 1 po q 6hr PRN Pain 2010 HYDROCODONE-ACETAMINOPHEN 15688201469 No Longer Active Edilberto Marino DO Active BACTRIM DS 800-160 MG TAB 1 tab by mouth twice daily 2 TRIMETHOPRIM-SULFAMETHOXAZOLE 70492222015 No Longer Active Abdirahman Rios MD Active 28-0.8 MG TABS Take one by mouth daily 09/20 VIT-FE FUMARATE-FA 37490638289 No Longer Active Abdirahman Rios MD Active CIPRO 500 MG TAB 1 tablet by mouth twice daily CIPROFLOXACIN HCL 31870852461 No Longer Active Abdirahman Rios MD Active BENADRYL 25 MG CAP 1 po q8hr PRN Congestion DIPHENHYDRAMINE HCL 18169173898 No Longer Active Abdirahman Rios MD Active ZOLOFT 50 MG TAB 1 po qd SERTRALINE HCL 212497 54083 No Longer Active Abdirahman Rios MD Active AMOXICILLIN 875 MG TABS 1 tab by mouth twice daily 201 08/09/13 AMOXICILLIN 09159020910 No Longer Active Abdirahman Rios MD Activ e AMOXICILLIN 875 MG TABS 1 tab by mouth twice daily 201 07/19/27 AMOXICILLIN 29965154835 No Longer Active Abdirahman Rios MD Activ e BACTRIM DS 800-160 MG TAB 2 tab by mouth twice daily 2 TRIMETHOPRIM-SULFAMETHOXAZOLE 53510465647 No Longer Active Abdirahman Rios MD Active KEFLEX 500 MG CAP 1 po tid x 10 days CEPHALEXIN 01493942387 No Longer Active Abdirahman Rios MD Active AMOXICILLIN 875 MG TABS 1 tab by mouth twice daily 201 07/18/07 AMOXICILLIN 90622791036 No Longer Active Abdirahman Rios MD Activ e BACTRIM DS 800-160 MG TAB 2 tab by mouth twice daily 2 BACTRIM DS 800-160 MG TAB 823503 TRIMETHOPRIM-SULFAMETHOXAZOLE Inactive ZOLOFT 50 MG TAB 1 po qd ZOLOFT 50 MG TAB 3129 41 SERTRALINE HCL Inactive BENADRYL 25 MG CAP 1 po q8hr PRN Congestion BENADRYL 25 MG CAP [id number] DIPHENHYDRAMINE HCL Inactive 28-0.8 MG TABS Take one by mouth daily 09/20 28-0.8 MG TABS VIT-FE FUMARATE-FA Inactive HYDROCODONE-ACETAMINOPHEN 5-325 MG TABS 1 po q 6hr PRN Pain 2010 HYDROCODONE-ACETAMINOPHEN 5-325 MG TABS 150581 HYDROCODONE-ACETAMINOPHEN Inactive LORATADINE 10 MG TABS 1 tablet by mouth daily LORATADINE 10 MG TABS 709858 LORATADINE Inactive LUIS 3-0.02 MG TABS 1 tablet by mouth daily as directed LUIS 3-0.02 MG TABS 917226 DROSPIRENONE-ETHINYL ESTRADIOL Inactive VITAMINS TABS Take one by mouth daily VITAMINS TABS MV & MIN W/FE-FA TABS Inactive PERCOCET 5-325 MG TABS 1 tablet by mouth every 6 hours as ne eded for pain PERCOCET 5-325 MG TABS 5986163 OXYCODONE-ACETAMIN OPHEN Inactive PREDNISONE 20 MG TAB 2 tabs daily for 4 days, 1 t ab daily for 4 days, 1/2 tab daily for 4 days PREDNISONE 20 MG TAB 664173 PREDNISON E Inactive CLINDAMYCIN HCL 300 MG CAPS 1 po q6hr x 7 days CLINDAMYCIN HCL 300 MG CAPS 232232 CLINDAMYCIN HCL Inactive HYDROCODONE-ACETAMINOPHEN 7.5-325 MG TABS 1 po QID PRN Pain 2011 HYDROCODONE-ACETAMINOPHEN 7.5-325 MG TABS 239016 HYDROCODONE-ACETAMINOPHEN Inactive SPIRONOLACTONE 25 MG TAB 1 tablet by mouth daily 01/22 SPIRONOLACTONE 25 MG TAB 181251 SPIRONOLACTONE Inactive IBUPROFEN 600 MG TAB 1 po q6-8hr PRN IBUPROFEN 600 MG TAB 910286 IBUPROFEN Inactive FERROUS SULFATE 325 (65 FE) MG TABS 1 tablet by mouth twice yung y FERROUS SULFATE 325 (65 FE) MG TABS 703864 FERROUS SULF ATE Inactive HYDROCODONE-ACETAMINOPHEN 7.5-500 MG TABS 1-2 every 4 hours as needed HYDROCODONE-ACETAMINOPHEN 7.5-500 MG TABS HYDROCODONE-ACETAMINOPHEN Inactive GENERESS FE 0.8-25 MG-MCG CHEW Take one by mouth daily GENERESS FE 0.8-25 MG-MCG CHEW [id number] NORETHIN-ETH ESTRADIOL-FE Inactive LORTAB 5 5-500 MG TABS 1/2 to 1 tablet by mouth go ry 4 hours as needed for pain LORTAB 5 5-500 MG TABS HYDROCODONE-A CETAMINOPHEN Inactive BACTRIM DS 800-160 MG TAB 1 tab by mouth twice daily 2 BACTRIM DS 800-160 MG TAB 632843 TRIMETHOPRIM-SULFAMETHOXAZOLE Inac tive HYDROCODONE-ACETAMINOPHEN 5-325 MG TABS 1 po q 6hr PRN Pain 2011 HYDROCODONE-ACETAMINOPHEN 5-325 MG TABS 963598 HYDROCODONE-ACETAMINOPHEN Inactive DOXYCYCLINE HYCLATE 100 MG CAPS Take one (1) tablet by mouth twice a day DOXYCYCLINE HYCLATE 100 MG CAPS 5161579 DOXYCYCLINE HYCLATE Inactive PENICILLIN V POTASSIUM 500 MG TAB 1 four times a day 2 PENICILLIN V POTASSIUM 500 MG TAB 738271 PENICILLIN V POTASSIUM [place] ctive PRISTIQ 50 MG [id number] 1 po qd PRISTIQ 50 MG [id number] DESVENLAFAXINE SUCCINATE Inactive TYLENOL/CODEINE #3 300-30 MG TAB 1-2 po q6hr PRN Pain TYLENOL/CODEINE #3 300-30 MG TAB 613658 ACETAMINOPHEN-CODEINE Inact krishna CEPHALEXIN 500 MG TABS Take one by mouth four times daily, morning, noon, early evening and bedtime. CEPHALEXIN 500 MG TABS 262113 CEPHALEXIN Inactive LORTAB 5 5-500 MG TABS 1/2 to 1 tablet by mouth go ry 6 hours as needed for pain LORTAB 5 5-500 MG TABS HYDROCODONE-A CETAMINOPHEN Inactive AMITRIPTYLINE HCL 25 MG TAB 1 tab by mouth daily 60 minutes before bedtime AMITRIPTYLINE HCL 25 MG TAB 742603 AMITRIPTYLINE HCL Inactive AMOXICILLIN 500 MG TABS 2 tabs PO bid x 10 d 7 AMOXICILLIN 500 MG TABS 443477 AMOXICILLIN Inactive IMPLANON 68 MG IMPL IMPLANTED IN LEFT ARM IMPLANON 68 MG IMPL ETONOGESTREL Inactive HYDROCODONE-ACETAMINOPHEN 5-325 MG TABS 1 PO tid PRN pain 5 HYDROCODONE-ACETAMINOPHEN 5-325 MG TABS 689458 HYDROCODONE-ACETAMIN OPHEN Inactive BACTRIM DS 800-160 MG TAB 1 tab by mouth twice daily 2 BACTRIM DS 800-160 MG TAB 607433 TRIMETHOPRIM-SULFAMETHOXAZOLE Inac tive CEPHALEXIN 500 MG CAPS 1 PO bid x 7 days CEPHALEXIN 500 MG CAPS 705673 CEPHALEXIN Inactive HYDROCODONE-ACETAMINOPHEN 5-325 MG TABS 1 tab by mouth every 6 hours as needed HYDROCODONE-ACETAMINOPHEN 5-325 MG TABS 467584 HYDROCODONE-ACETAMINOPHEN Inactive PROMETHAZINE-CODEINE 6.25-10 MG/5ML SYRP 1 tsp every 6 hrs prn c ough PROMETHAZINE-CODEINE 6.25-10 MG/5ML SYRP 764191 PROMETH AZINE-CODEINE Inactive IBUPROFEN 800 MG TAB 1 pill three times daily as needed for pain IBUPROFEN 800 MG TAB 332058 IBUPROFEN Inactive KEFLEX 500 MG CAP 1 tab po tid KEFLEX 500 MG CAP 089367 CEPHALEXIN Inactive HYDROCODONE-ACETAMINOPHEN 7.5-325 MG TABS 1 four times a day as needed for pain HYDROCODONE-ACETAMINOPHEN 7.5-325 MG TABS 549770 HYDROCODONE-ACETAMINOPHEN Inactive BACTRIM DS 800-160 MG TABS by mouth twice a day 11/05 BACTRIM DS 800-160 MG TABS 535825 SULFAMETHOXAZOLE-TRIMETHOPRIM Inactive IBUPROFEN 800 MG TABS 1 tid prn IBUPROFEN 800 MG TABS 785730 IBUPROFEN Inactive ENDOCET 10-325 MG TABS 1 q 6 hr prn ENDOC ET 10-325 MG TABS [id number] OXYCODONE-ACETAMINOPHEN Inactive HYDROCODONE-ACETAMINOPHEN 7.5-325 MG TABS 1 by mouth e very 6 hours as needed for pain HYDROCODONE-ACETAMINOPHEN 7.5-325 MG TABS [id number] HYDROCODONE-ACETAMINOPHEN Inactive PERCOCET 7.5-325 MG TABS 1 PO q 8 hrs PRN pain PERCOCET 7.5-325 MG TABS [id number] OXYCODONE-ACETAMINOPHEN Inactive LIDODERM 5 % PTCH One patch to painful area [place] N. On for 12 hrs, off for 12 hrs. LIDODERM 5 % [facility] [id number] LIDOCAINE Inactiv e PERCOCET 7.5-325 MG TABS 1 PO tid PRN pain PERCOCET 7.5- 325 MG TABS [id number] OXYCODONE-ACETAMINOPHEN Inactive MOBIC 15 MG TABS 1 tab daily MOBIC 15 MG TABS 15 2695 MELOXICAM Inactive CYCLOBENZAPRINE HCL 10 MG TABS 1/2 - 1 tab PO tid PRN back p ain, muscle spasm CYCLOBENZAPRINE HCL 10 MG TABS [id number] CYCLOBENZA JOSEPH HCL Inactive LORATADINE 10 MG TABS 1 tablet by mouth daily LORATADINE 10 MG TABS [id number] LORATADINE Inactive HYDROCODONE-ACETAMINOPHEN 10-325 MG TABS 1 by mouth ev chaka 8 hours as needed for pain HYDROCODONE-ACETAMINOPHEN 10-325 MG TABS 834035 HYDROCODONE-ACETAMINOPHEN Inactive LC-5 LIDOCAINE 5 % CREA apply 1 time daily to affected area 2013 LC-5 LIDOCAINE 5 % CREA [id number] LIDOCAINE (ANORECTAL) In active PERCOCET 5-325 MG TAB 1 every 6 hours as needed PERCOCET 5-325 MG TAB [id number] OXYCODONE-ACETAMINOPHEN Inactive KEFLEX 500 MG CAP 1 po qid KEFLEX 500 MG CAP 30 9114 CEPHALEXIN Inactive PROAIR HFA 108 (90 BASE) MCG/ACT AERS 2 puff q 4-6 hrs PRN 01/24 PROAIR HFA 108 (90 BASE) MCG/ACT AERS ALBUTEROL SULFATE Inactive PERCOCET 10-325 MG ORAL TABS 1 every 4 hours as needed PERCOCET 10-325 MG ORAL TABS [id number] OXYCODONE-ACETAMINOPHEN Inactiv e EMLA 2.5-2.5 % EXT CREA apply to skin lesion q 6 hours, prn 2014 EMLA 2.5-2.5 % EXT CREA 654805 LIDOCAINE-PRILOCAINE [place] ctive PERCOCET 10-325 MG TABS 1 tab by mouth every 6 hours , use sparingly for severe pain PERCOCET 10-325 MG TABS [id number] OXYCODONE-ACETAMINOPHEN Inactive GLUCOPHAGE 500 MG ORAL TABS one by mouth 3 times a day GLUCOPHAGE 500 MG ORAL TABS 541902 METFORMIN HCL Inactive HYDROCODONE-ACETAMINOPHEN 5-325 MG TABS 1 po q6hr PRN pain 06/30 HYDROCODONE-ACETAMINOPHEN 5-325 MG TABS 722457 HYDROCOD ONE-ACETAMINOPHEN Inactive PERCOCET 5-325 MG TAB 1 tab po q 6 -8 hours, prn for severe pain PERCOCET 5-325 MG TAB [id number] OXYCODONE-ACETAMINOPHEN In active PERCOCET 5-325 MG ORAL TABS 1 every 6 hours as needed PERCOCET 5-325 MG ORAL TABS 3748391 OXYCODONE-ACETAMINOPHEN Inactive DICLOFENAC SODIUM 50 MG TBEC 1 tablet by mouth four times da tom PRN Pain DICLOFENAC SODIUM 50 MG TBEC 314708 DICLOFENAC S ODIUM Inactive AUGMENTIN 500-125 MG ORAL TABS 1 by mouth twice a day AUGMENTIN 500-125 MG ORAL TABS 337834 AMOXICILLIN-POT CLAVULANATE I nactive HYDROCODONE-ACETAMINOPHEN 5-325 MG TABS 1 po q6hr PRN Pain 03/09 HYDROCODONE-ACETAMINOPHEN 5-325 MG TABS 794565 HYDROCOD ONE-ACETAMINOPHEN Inactive CYCLOBENZAPRINE HCL 10 MG TABS 1 tablet by mouth three times daily as needed for muscle spasm/pain CYCLOBENZAPRINE HCL 10 MG TABS 32853 8 CYCLOBENZAPRINE HCL Inactive SPRINTEC 28 0.25-35 MG-MCG TABS 1 pill by mouth daily for bi rth control SPRINTEC 28 0.25-35 MG-MCG TABS 416588 NORGESTIMATE-ETH ESTRADIOL Inactive PERCOCET 5-325 MG TAB 1 tab po q 6 hours, prn severe pain PERCOCET 5-325 MG TAB 2278857 OXYCODONE-ACETAMINOPHEN Inactive IBUPROFEN 600 MG ORAL TABS 1 by mouth twice a day 2014 IBUPROFEN 600 MG ORAL TABS 888010 IBUPROFEN Inactive CYMBALTA 30 MG CPEP 1 cap by mouth daily CYMBALTA 30 MG CPEP 384817 DULOXETINE HCL Inactive HYDROCODONE-ACETAMINOPHEN 5-325 MG TABS 1 po q6hr PRN Pain 04/09 HYDROCODONE-ACETAMINOPHEN 5-325 MG TABS 927483 HYDROCOD ONE-ACETAMINOPHEN Inactive TRAZODONE HCL 100 MG TAB 0.5 to 1 po qHS PRN Insomnia TRAZODONE HCL 100 MG TAB 131386 TRAZODONE HCL Inactive ALPRAZOLAM 0.5 MG TABS 1 po BID PRN Anxiety ALPRAZOLAM 0.5 MG TABS 125866 ALPRAZOLAM Inactive [id number] 50-325-40 MG ORAL CAPS 1-2 po TID OK N Headache [id number] 50-325-40 MG ORAL CAPS 2 27901 [id number] Inactive HYDROCODONE-ACETAMINOPHEN 5-325 MG TABS 1 po TID PRN Pain 9 HYDROCODONE-ACETAMINOPHEN 5-325 MG TABS 836647 HYDROCODONE-ACETAMIN OPHEN Inactive PERCOCET 10-325 MG TABS 1 tablet every 8 hours as needed for antonia n PERCOCET 10-325 MG TABS 5409073 OXYCODONE-ACETAMINOPHEN Inactive ONDANSETRON 4 MG TBDP 1 q4h PRN nausea ON DANSETRON 4 MG TBDP 213643 ONDANSETRON Inactive VIIBRYD 10 & 20 & 40 MG KIT 1 po qd as directed 07/24 VIIBRYD 10 & 20 & 40 MG KIT VILAZODONE HCL Inactive DICLOFENAC SODIUM 50 MG TBEC 1 tablet by mouth four times da tom PRN Pain DICLOFENAC SODIUM 50 MG TBEC 362305 DICLOFENAC S ODIUM Inactive PERCOCET 10-325 MG ORAL TABS one every 6 hours prn pain PERCOCET 10-325 MG ORAL TABS 6196815 OXYCODONE-ACETAMINOPHEN Inactiv e PERCOCET 10-325 MG ORAL TABS take 1 tab by mouth q 4hours as needed for pain PERCOCET 10-325 MG ORAL TABS 7153404 OXYCODONE-ACETAMINOPHEN Inactive FLONASE ALLERGY RELIEF 50 MCG/ACT NASAL SUSP One spray in each nostril twice a day. FLONASE ALLERGY RELIEF 50 MCG/ACT NASAL S PRISON 014424 FLUTICASONE PROPIONATE Inactive AUGMENTIN 875-125 MG TAB 1 tab by mouth twice daily with food 20 23/05/16 AUGMENTIN 875-125 MG TAB 977024 AMOXICILLIN-POT [place] Inactive HYDROCODONE-ACETAMINOPHEN 5-325 MG TABS 1 tab by mouth every 6 hours as needed for pain HYDROCODONE-ACETAMINOPHEN 5-325 MG TABS 8 74288 HYDROCODONE-ACETAMINOPHEN Inactive PERCOCET 10-325 MG TABS 1 tablet every 8 hours as needed for antonia n PERCOCET 10-325 MG TABS 8261130 OXYCODONE-ACETAMINOPHEN Inactive LC-4 LIDOCAINE 4 % EXT CREA apply q 6 hours, prn 08/03 LC-4 LIDOCAINE 4 % EXT CREA 7573977 LIDOCAINE Inactive PROMETHAZINE HCL 25 MG TABS 1 four times a day as needed for nausea/vomiting PROMETHAZINE HCL 25 MG TABS 318539 PROMETHAZINE HCL Inactive LC-4 LIDOCAINE 4 % EXT CREA apply to painful area every 12 h ours or as needed LC-4 LIDOCAINE 4 % EXT CREA 0627355 LIDOCAINE Inactive PERCOCET 10-325 MG ORAL TABS 1 every 4 hous as needed PERCOCET 10-325 MG ORAL TABS 2841242 OXYCODONE-ACETAMINOPHEN Inactiv e GLYDO 2 % EXT GEL apply to painful areas as needed 201 12/10/13 GLYDO 2 % EXT GEL 0767045 LIDOCAINE HCL Inactive [id number]-[id number] 50-325-40 MG ORAL TABS 1 po TID PRN Headaches [id number] 50-325-40 MG ORAL TABS 444115 [id number]-UZKD-[id number] Inactive AMOXICILLIN 875 MG TABS 1 tab by mouth twice daily 201 07/18/07 AMOXICILLIN 875 MG TABS 798488 AMOXICILLIN Inactive KEFLEX 500 MG CAP 1 po tid x 10 days KEFLEX 500 MG CAP 946173 CEPHALEXIN Inactive AMOXICILLIN 875 MG TABS 1 tab by mouth twice daily 201 07/19/27 AMOXICILLIN 875 MG TABS 700277 AMOXICILLIN Inactive AMOXICILLIN 875 MG TABS 1 tab by mouth twice daily 201 08/09/13 AMOXICILLIN 875 MG TABS 161874 AMOXICILLIN Inactive CIPRO 500 MG TAB 1 tablet by mouth twice daily CIPRO 500 MG TAB 699401 CIPROFLOXACIN HCL Inactive BACTRIM DS 800-160 MG TAB 1 tab by mouth twice daily 2 BACTRIM DS 800-160 MG TAB 891116 TRIMETHOPRIM-SULFAMETHOXAZOLE Inac tive LEVAQUIN 500 MG TABS 1 PO q day x 7 days LEVAQUIN 500 MG TABS 406879 LEVOFLOXACIN Inactive CLINDAMYCIN HCL 300 MG CAPS 1 po QID x 7 days CLINDAMYCIN HCL 300 MG CAPS 045086 CLINDAMYCIN HCL Inactive AUGMENTIN 875-125 MG TAB 1 tab by mouth twice daily with food 20 22/05/07 AUGMENTIN 875-125 MG TAB 484848 AMOXICILLIN-POT [place] Inactive DIFLUCAN 150 MG TAB 1 qODay x 2 doses DIFLUCAN 150 MG TAB 824523 FLUCONAZOLE Inactive PREDNISONE 20 MG TAB 2 tabs daily for 3 days, 1 t ab daily for 3 days, 1/2 tab daily for 2 days PREDNISONE 20 MG TAB 154720 PREDNISON E Inactive AUGMENTIN 875-125 MG TAB 1 tab by mouth twice daily with food 20 21/10/13 AUGMENTIN 875-125 MG TAB 591633 AMOXICILLIN-POT [place] Inactive HYDROCODONE-ACETAMINOPHEN 5-325 MG TABS 1 tab by mouth every 6 hours as needed PRN Pain HYDROCODONE-ACETAMINOPHEN 5-325 MG TABS 8 01731 HYDROCODONE-ACETAMINOPHEN Inactive PROMETHAZINE HCL 25 MG TABS 1 four times a day as needed for nausea/vomiting PROMETHAZINE HCL 25 MG TABS 879116 PROMETHAZINE HCL Inactive AMOXICILLIN 500 MG CAPS 2 po BID x 10 days AMOXICILLIN 500 MG CAPS 024768 AMOXICILLIN Inactive Advance Directives Directive Description Start Date PERMISSION TO SHARE Immunizations Vaccine Administration Date Value Standard Alf cription Seasonal influenza vaccine, injectable, containing preservative, for > 3 years old (Afluria, FluLaval, Fluzone, Fluvirin, Fluarix, Agriflu(>= 18 yo)) Fluzone (>3 yrs.) [[id number]] Influenza, seasonal, inject able Seasonal influenza vaccine, injectable, preservative free, for > 3 years old (Afluria, FluLaval, Fluzone, Fluvirin, Fluarix, Agriflu(>= 18 yo)) Fluzone preservative free (>3 yrs.) [[id number]] Influenza, seasonal, injectable, preservative free Seasonal influenza vaccine, injectable, containing preservative, for > 3 years old (Afluria, FluLaval, Fluzone, Fluvirin, Fluarix, Agriflu(>= 18 yo)) Fluzone (>3 yrs.) [[id number]] Influenza, seasonal, inject able Seasonal influenza vaccine, injectable, containing preservative, for > 3 years old (Afluria, FluLaval, Fluzone, Fluvirin, Fluarix, Agriflu(>= 18 yo)) Fluzone (>3 yrs.) [[id number]] Influenza, seasonal, inject able dT (Diphtheria and Tetanus) booster given Histor ical Td(adult) unspecified formulation Vital Signs Date Name Value Unit Range Description blood pressure, diastolic - 8462-4 87 mm[Hg] BP ribeiro blood pressure, systolic - 8480-6 145 mm[Hg] BP sys pulse rate E&M - 8867-4 91 /min H eart rate temperature E&M 98.2 [degF] Body temp erature weight E&M - 3141-9 232 [lb_av] Weigh t Measured blood pressure, diastolic - 8462-4 107 mm[Hg] BP ribeiro blood pressure, systolic - 8480-6 163 mm[Hg] BP sys pulse rate E&M - 8867-4 94 /min H eart rate temperature E&M 98.2 [degF] Body temp erature weight E&M - 3141-9 231 [lb_av] Weigh t Measured blood pressure, diastolic - 8462-4 93 mm[Hg] BP ribeiro blood pressure, systolic - 8480-6 158 mm[Hg] BP sys pulse rate E&M - 8867-4 92 /min H eart rate temperature E&M 98.3 [degF] Body temp erature weight E&M - 3141-9 235 [lb_av] Weigh t Measured blood pressure, diastolic - 8462-4 116 mm[Hg] BP ribeiro blood pressure, systolic - 8480-6 156 mm[Hg] BP sys pulse rate E&M - 8867-4 98 /min H eart rate temperature E&M 98.1 [degF] Body temp erature weight E&M - 3141-9 235.8 [lb_av] Weigh t Measured blood pressure, diastolic - 8462-4 92 mm[Hg] BP ribeiro blood pressure, systolic - 8480-6 140 mm[Hg] BP sys pulse rate E&M - 8867-4 88 /min H eart rate temperature E&M 97.8 [degF] Body temp erature weight E&M - 3141-9 234.0 [lb_av] Weigh t Measured blood pressure, diastolic - 8462-4 92 mm[Hg] BP ribeiro blood pressure, systolic - 8480-6 140 mm[Hg] BP sys pulse rate E&M - 8867-4 90 /min H eart rate temperature E&M 96.4 [degF] Body temp erature weight E&M - 3141-9 236.5 [lb_av] Weigh t Measured blood pressure, diastolic - 8462-4 85 mm[Hg] BP ribeiro blood pressure, systolic - 8480-6 147 mm[Hg] BP sys pulse rate E&M - 8867-4 92 /min H eart rate temperature E&M 97.7 [degF] Body temp erature weight E&M - 3141-9 229 [lb_av] Weigh t Measured blood pressure, diastolic, standing 86 mm[Hg] BP ribeiro blood pressure, systolic, standing 136 mm[Hg] BP sys pulse rate E&M - 8867-4 84 /min H eart rate temperature E&M 98.1 [degF] Body temp erature weight E&M - 3141-9 232 [lb_av] Weigh t Measured blood pressure, diastolic - 8462-4 88 mm[Hg] BP ribeiro blood pressure, systolic - 8480-6 127 mm[Hg] BP sys pulse rate E&M - 8867-4 93 /min H eart rate temperature E&M 99.0 [degF] Body temp erature weight E&M - 3141-9 230 [lb_av] Weigh t Measured blood pressure, diastolic - 8462-4 86 mm[Hg] BP ribeiro blood pressure, systolic - 8480-6 142 mm[Hg] BP sys pulse rate E&M - 8867-4 81 /min H eart rate temperature E&M 97.2 [degF] Body temp erature weight E&M - 3141-9 231 [lb_av] Weigh t Measured blood pressure, diastolic - 8462-4 74 mm[Hg] BP ribeiro blood pressure, systolic - 8480-6 138 mm[Hg] BP sys pulse rate E&M - 8867-4 95 /min H eart rate temperature E&M 98.2 [degF] Body temp erature weight E&M - 3141-9 230.5 [lb_av] Weigh t Measured blood pressure, diastolic - 8462-4 94 mm[Hg] BP ribeiro blood pressure, systolic - 8480-6 151 mm[Hg] BP sys pulse rate E&M - 8867-4 96 /min H eart rate temperature E&M 96.7 [degF] Body temp erature weight E&M - 3141-9 232 [lb_av] Weigh t Measured blood pressure, diastolic - 8462-4 83 mm[Hg] BP ribeiro blood pressure, systolic - 8480-6 131 mm[Hg] BP sys pulse rate E&M - 8867-4 83 /min H eart rate temperature E&M 97.7 [degF] Body temp erature weight E&M - 3141-9 227 [lb_av] Weigh t Measured blood pressure, diastolic - 8462-4 84 mm[Hg] BP ribeiro blood pressure, systolic - 8480-6 127 mm[Hg] BP sys pulse rate E&M - 8867-4 97 /min H eart rate temperature E&M 98.2 [degF] Body temp erature weight E&M - 3141-9 227.4 [lb_av] Weigh t Measured blood pressure, diastolic - 8462-4 71 mm[Hg] BP ribeiro blood pressure, systolic - 8480-6 133 mm[Hg] BP sys height E&M - 8302-2 63 [in_us] Bdy h eight pulse rate E&M - 8867-4 84 /min H eart rate temperature E&M 98.6 [degF] Body temp erature weight E&M - 3141-9 227 [lb_av] Weigh t Measured blood pressure, diastolic - 8462-4 86 mm[Hg] BP ribeiro blood pressure, systolic - 8480-6 138 mm[Hg] BP sys pulse rate E&M - 8867-4 101 /min H eart rate temperature E&M 97.6 [degF] Body temp erature weight E&M - 3141-9 227 [lb_av] Weigh t Measured blood pressure, diastolic - 8462-4 83 mm[Hg] BP ribeiro blood pressure, systolic - 8480-6 135 mm[Hg] BP sys pulse rate E&M - 8867-4 87 /min H eart rate temperature E&M 98.4 [degF] Body temp erature weight E&M - 3141-9 228 [lb_av] Weigh t Measured blood pressure, diastolic - 8462-4 91 mm[Hg] BP ribeiro blood pressure, systolic - 8480-6 137 mm[Hg] BP sys pulse rate E&M - 8867-4 83 /min H eart rate temperature E&M 97.9 [degF] Body temp erature weight E&M - 3141-9 229.5 [lb_av] Weigh t Measured blood pressure, diastolic - 8462-4 67 mm[Hg] BP ribeiro blood pressure, systolic - 8480-6 121 mm[Hg] BP sys pulse rate E&M - 8867-4 87 /min H eart rate temperature E&M 97.8 [degF] Body temp erature weight E&M - 3141-9 227.5 [lb_av] Weigh t Measured blood pressure, diastolic - 8462-4 86 mm[Hg] BP ribeiro blood pressure, systolic - 8480-6 134 mm[Hg] BP sys pulse rate E&M - 8867-4 87 /min H eart rate temperature E&M 98.6 [degF] Body temp erature weight E&M - 3141-9 229 [lb_av] Weigh t Measured blood pressure, diastolic - 8462-4 79 mm[Hg] BP ribeiro blood pressure, systolic - 8480-6 143 mm[Hg] BP sys pulse rate E&M - 8867-4 80 /min H eart rate temperature E&M 97.7 [degF] Body temp erature weight E&M - 3141-9 228.5 [lb_av] Weigh t Measured blood pressure, diastolic - 8462-4 78 mm[Hg] BP ribeiro blood pressure, systolic - 8480-6 123 mm[Hg] BP sys pulse rate E&M - 8867-4 70 /min H eart rate temperature E&M 97.6 [degF] Body temp erature weight E&M - 3141-9 226 [lb_av] Weigh t Measured blood pressure, diastolic - 8462-4 94 mm[Hg] BP ribeiro blood pressure, systolic - 8480-6 145 mm[Hg] BP sys pulse rate E&M - 8867-4 78 /min H eart rate temperature E&M 97.0 [degF] Body temp erature weight E&M - 3141-9 225.9 [lb_av] Weigh t Measured blood pressure, diastolic - 8462-4 99 mm[Hg] BP ribeiro blood pressure, systolic - 8480-6 143 mm[Hg] BP sys pulse rate E&M - 8867-4 75 /min H eart rate temperature E&M 98.1 [degF] Body temp erature weight E&M - 3141-9 227 [lb_av] Weigh t Measured blood pressure, diastolic - 8462-4 84 mm[Hg] BP ribeiro blood pressure, systolic - 8480-6 127 mm[Hg] BP sys pulse rate E&M - 8867-4 94 /min H eart rate temperature E&M 97 [degF] Body temp erature weight E&M - 3141-9 230.2 [lb_av] Weigh t Measured blood pressure, diastolic - 8462-4 89 mm[Hg] [...] - 3141-9 229 [lb_av] Weigh t Measured Diagnostic Results Date Name Value Unit Range Description Lab Report: CBC - Hematology erythrocyte (RBC) count 5.08 10^6/MM^3 10*6/mm3 4.04-5.4 8 hemoglobin, blood 15.4 g/dL 12.0-16.0 hematocrit, blood 44.6 % 36.0-46.0 mean corpuscular volume, RBC 88 fL 80-97 mean corpuscular hemoglobin, RBC 30.2 pg 27. 0-31.2 mean corpuscular hemoglobin concentration, RBC 34.5 G/DL % 31.8-35.4 red blood cell distribution width 13.4 % 11 .6-14.8 platelet count 294 10^3/MM^3 10*3/mm3 142-424 Lab Report: CBC W/DIFF - Hematology leukocyte count, blood 10.3 10^3/MM^3 10*3/mm3 4.6-10.2 neutrophils as percent of blood leukocytes 70.1 % 42.2-75.2 monocytes as percent of blood leukocytes 6.0 % 1.7-9.3 lymphocytes as percent of blood leukocytes 19.8 % 20.5-51.1 erythrocyte (RBC) count 5.41 10^6/MM^3 10*6/mm3 4.04-5.4 8 hemoglobin, blood 16.2 g/dL 12.0-16.0 hematocrit, blood 46.2 % 36.0-46.0 mean corpuscular volume, RBC 85 fL 80-97 mean corpuscular hemoglobin, RBC 29.9 pg 27. 0-31.2 mean corpuscular hemoglobin concentration, RBC 35.0 G/DL % 31.8-35.4 red blood cell distribution width 13.5 % 11 .6-14.8 platelet count 430 10^3/MM^3 10*3/mm3 142-424 Lab Report: CBC, Comp. Metabolic Panel - Chemistry sodium, serum 142 mmol/L 983-625 4248/05/12 potassium, serum 4.8 mmol/L 3.5-5.2 chloride, serum [...] count 291 10^3/MM^3 10*3/mm3 142-424 Lab Report: Comp. Metabolic Panel, Thyro id Stimulating Hormone (L), MICR ... - Chemistry sodium, serum 137 mmol/L 939-345 6984/02/24 carbon dioxide, venous blood 26.3 mmol/L 21.0-32 .0 potassium, serum 4.1 mmol/L 3.5-5.2 chloride, serum 101 mmol/L 98-107 blood glucose 87 mg/dL 65-110 urea nitrogen, blood 7 mg/dL 7-18 creatinine, serum 0.60 mg/dL 0.55-1.30 alanine aminotransferase (SGPT), serum 55 U/L 12-78 aspartate aminotransferase (SGOT), serum 26 U/L 15-37 calcium, serum 9.2 mg/dL 8.5-10.1 bilirubin, serum, total 0.20 mg/dL 0.00-1.00 TSH 1.46 m[iU]/mL 0.36-3.74 albumin/creatinine ratio, urine < 30 mg/g mg/g{creat} 0-2 9 Lab Report: Comp. Metabolic Panel, Thyro id Stimulating Hormone (L), MICR ... - Lab microalbumin, urine 10 0-19 Lab Report: DNA (ds) ANTIBODIES - Hemato logy leukocyte count, blood <1 IU/mL 10*3/mm3 Lab Report: LDL DIRECT - Chemistry LDL cholesterol, serum 90.00 mg/dL 5.00-130.00 Lab Report: Lipid Panel - Chemistry cholesterol, serum 181 mg/dL 275-676 8191/09/01 triglyceride, serum, fasting 341 mg/dL 30-200 HDL cholesterol, serum 22 mg/dL 32-96 LDL cholesterol, serum 91 mg/dL 0-130 cholesterol, serum 165 mg/dL 078-979 8261/05/12 triglyceride, serum, fasting 524 mg/dL 30-200 HDL cholesterol, serum 24 mg/dL 32-96 Lab Report: UADIP W/MICRO, AUTO - Chemis try protein, total urine random Negative mg/dL Negative RBC, urine, dipstick Negative Negative Lab Report: UADIP W/MICRO, AUTO - Urinal ysis urobilinogen, urine, semiquantitative (dipstick) 0.2 Normal leukocyte esterase, urine, by dipstick Negative Negative nitrite, urine, semiquantitative Negative Neg ative glucose, urine, semiquantitative Negative Neg ative ketones, urine, by test strip Negative Negati ve bilirubin, urine Negative Negative urine color Yellow Colorless;Lightyellow;St raw;Yellow appearance, urine Clear Clear specific gravity, urine 1.020 1.000-1.030 pH, urine, semiquantitative 7.5 5.0-8.5 Office Visit: Pt is having Pelvic pain - Chemistry RBC, urine, dipstick negative protein, total urine random negative mg/dL Office Visit: Pt is having Pelvic pain - Urinalysis pH, urine, semiquantitative 7 specific gravity, urine 1.015 urinalysis, routine Clean Catch culture status No ketones, urine, by test strip negative bilirubin, urine negative glucose, urine, semiquantitative negative urine color yellow appearance, urine clear leukocyte esterase, urine, by dipstick negative nitrite, urine, semiquantitative negative urobilinogen, urine, semiquantitative (dipstick) negative protein, urine, semiquantitative (dipstick) negative Encounters Code Encounter Date Provider Facility CPT-81224 Level 3 Est. Patient 16:33:24 CDT Kalpesh goins MD [facility] CPT-17045 Level 3 Est. Patient 08:29:37 CDT Hira muniz [facility] CPT-30896 Level 3 Est. Patient 10:28:25 CDT Hira muniz [facility] CPT-72072 Level 4 Est. Patient 16:38:26 INCENDIARIES SUPERVISOR Abdirahman Rios MD [facility] CPT-70184 Level 3 Est. Patient 05:31:41 INCENDIARIES SUPERVISOR Kalpesh goins MD [facility] CPT-35971 Level 3 Est. Patient 11:22:02 INCENDIARIES SUPERVISOR Matthewelias Alessandra radhaosei [facility] CPT-11342 Level 3 Est. Patient 21:00:18 INCENDIARIES SUPERVISOR Rajni danielson [facility] CPT-74851 Level 3 Est. Patient 14:15:00 INCENDIARIES SUPERVISOR Kalpesh goins MD [facility] CPT-44077 Level 2 Est. Patient 19:57:52 INCENDIARIES SUPERVISOR Rajni Oconnor [facility] CPT-41588 Level 3 Est. Patient 16:58:40 INCENDIARIES SUPERVISOR Bj funes MD [facility]-82155 Level 3 Est. Patient 08:51:33 CDT Kalpesh goins MD [facility] CPT-45437 Level 4 Est. Patient 14:14:53 CDT Abdirahman Rios MD [facility] CPT-35131 Level 3 Est. Patient 15:47:40 CDT Kalpesh goins MD [facility]-89179 Level 3 Est. Patient 10:57:26 CDT Abdirahman Rios MD [facility] CPT-41827 Level 3 Est. Patient 14:29:53 CDT Abhinav Galvan MD [facility] CPT-10605 Level 2 Est. Patient 16:33:01 CDT Kalpesh goins MD [facility] CPT-33308 Level 4 Est. Patient 16:44:56 CDT Abdirahman Rios MD [facility] CPT-20734 Level 2 Est. Patient 07:49:32 CDT Kalpesh goins MD [facility] CPT-60610 Level 3 New Patient 15:47:11 INCENDIARIES SUPERVISOR Bj huber MD [facility]-29238 Level 4 Est. Patient 14:37:38 INCENDIARIES SUPERVISOR Abdirahman Rios MD [facility] CPT-73557 Level 2 Est. Patient 13:32:17 INCENDIARIES SUPERVISOR Kalpesh goins MD [facility]-44087 Level 3 Est. Patient 17:32:57 INCENDIARIES SUPERVISOR Edilberto tiwari [facility] CPT-50688 Level 3 Est. Patient 17:22:33 INCENDIARIES SUPERVISOR Edilberto tiwari [facility] CPT-65876 Level 2 Est. Patient 16:57:09 INCENDIARIES SUPERVISOR Kalpesh goins MD [facility]-42435 Level 3 Est. Patient 14:03:08 INCENDIARIES SUPERVISOR Abdirahman Rios MD [facility]-15960 Level 3 Est. Patient 18:12:34 CDT Shola Wright [facility] CPT-99541 Level 3 Est. Patient 19:34:46 CDT Shola Wright [facility] CPT-77845 Level 3 Est. Patient 14:19:37 CDT Abdirahman Rios MD [facility] CPT-35164 Level 3 Est. Patient 14:11:58 CDT Kalpesh goins MD [facility]-25557 Level 3 Est. Patient 16:50:00 CDT Michelle MERCADO [facility] CPT-44747 Level 3 Est. Patient 17:11:32 INCENDIARIES SUPERVISOR Brandie bates MD PhD [facility] CPT-35072 Level 3 Est. Patient 16:31:47 INCENDIARIES SUPERVISOR Shola Wright [facility] CPT-54828 Level 3 Est. Patient 17:51:10 INCENDIARIES SUPERVISOR Abhinav Galvan MD [facility]-53678 Level 4 Est. Patient 12:54:56 INCENDIARIES SUPERVISOR Kalpesh goins MD [facility]-88640 Level 4 Est. Patient 12:53:56 INCENDIARIES SUPERVISOR Kalpesh goins MD [facility] CPT-30269 Level 3 Est. Patient 17:56:58 CDT Shola Wright [facility] CPT-24292 Level 3 Est. Patient 14:26:20 CDT Janak butcher [facility] CPT-01604 Level 3 Est. Patient 09:38:41 CDT Shola Wright [facility] CPT-72500 Level 3 Est. Patient 14:45:26 CDT Edilberto tiwari [facility] CPT-99960 Level 3 Est. Patient 10:51:33 CDT Hira muniz [facility] CPT-45401 Level 3 Est. Patient 11:57:55 INCENDIARIES SUPERVISOR Shoal Thao Adriana [facility] CPT-90958 Level 3 Est. Patient 09:53:33 INCENDIARIES SUPERVISOR Edilberto tiwari [facility] CPT-77380 Level 3 Est. Patient 14:42:54 INCENDIARIES SUPERVISOR Abhinav Galvan MD [facility] CPT-22642 Level 3 Est. Patient 15:10:02 CDT Janak butcher [facility] CPT-93915 Level 3 Est. Patient 15:20:20 CDT Theo dennis MD [facility] CPT-43825 Level 2 Est. Patient 14:08:57 CDT Kalpesh goins MD [facility] CPT-11476 Level 3 Est. Patient 13:56:19 CDT Abdirahman Rios MD [facility] CPT-74679 Level 3 Est. Patient 13:59:37 CDT Abdirahman Rios MD [facility] CPT-33405 Level 2 Est. Patient 14:44:59 CDT Kalpesh goins MD [facility] CPT-11466 Level 3 Est. Patient 06:06:23 CDT Edilberto tiwari DO [facility] CPT-26974 Level 3 Est. Patient 15:23:54 CDT Abdirahman Rios MD [facility] CPT-30612 Level 3 Est. Patient 15:43:49 CDT Abdirahman Rios MD [facility] CPT-04006 Level 3 Est. Patient 12:46:47 [employer]PER[employer] Abdirahman Rios MD [facility] CPT-63790 Level 3 Est. 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 Patient 09:36:42 [employer]IES [employer]PERVIS[employer] Abdirahman Rios MD [facility] CPT-74868 Level 3 Est. Patient 10:56:43 CDT Abdirahman Rios MD [facility] CPT-75464 Level 3 Est. Patient 18:24:52 CDT Abdirahman Rios MD [facility] CPT-84121 Level 3 Est. Patient 13:27:22 CDT Abdirahman Rios MD [facility] Procedures Code Procedure Name Date Entry Date Standard Desc ription CPT-03430 Postop F/U Visit 16:21:51 [employer] CPT-02767 Postop F/U Visit 17:09:41 [employer] CPT-74406 Postop F/U Visit 14:08:43 [employer]PER[employer] CPT-39112 Postop F/U Visit 15:18:16 [employer]PERVIS[employer] CPT-79178 Postop F/U Visit 15:03:49 [employer]PERVIS[employer] CPT-30286 Postop F/U Visit 14:45:23 [employer]IES SUPERVIS[employer] CPT-99656 Postop F/U Visit 14:11:03 [employer] SUPERVIS[employer] CPT-97236 Postop F/U Visit 18:21:21 [employer] CPT-79006 Postop F/U Visit 15:57:12 [employer] CPT-12904 Bladder Instillation 16:58:41 [employer] SUPERVISOR 6 CPT-48760 Fluzone Quadrivalent Intramuscular Suspe nsion 0.5 ML 15:20:56 [employer] CPT-68245 Immunization Single Admin 15:20:56 [employer] SUPERVISOR 2014 CPT-12426 Excis pilonidal cyst simple 08:51:34 CDT 20 22/04/20 CPT-77654 Venipuncture Draw Fee 14:27:29 CDT CPT-67226 Postop F/U Visit 15:27:43 CDT CPT-56310 Postop F/U Visit 14:40:59 CDT CPT-14227 Postop F/U Visit 15:02:46 CDT CPT-49212 Postop F/U Visit 11:29:00 [employer] CPT-J0696 Rocephin 1000 mg (Ceftriaxone) 17:22:33 [employer] SUPER[employer] CPT-10557 Postop F/U Visit 18:41:07 [employer] SUPERVIS[employer] CPT-66578 Postop F/U Visit 08:19:08 [employer] SUPERVIS[employer] CPT-79505 Immunization Single Admin 16:41:53 CDT 2013 CPT-68431 Fluzone Quadrivalent Intramuscular Suspe nsion 0.5 ML 16:41:53 CDT CPT-OV Office Visit 16:39:18 CDT CPT-OV Office Visit 16:16:36 CDT CPT-OV Office Visit 15:34:48 CDT CPT-15991 Postop F/U Visit 14:50:12 CDT CPT-20285 Postop F/U Visit 14:41:10 CDT CPT-27520 Venipuncture Draw Fee 11:38:04 [employer] CPT-56635 Postop F/U Visit 19:02:59 [employer]IES SUPERVIS[employer] CPT-12325 Postop F/U Visit 12:04:54 [employer] SUPERVIS[employer] CPT-29475 Administration single or combination vac cine inc oral 15:56:43 CDT CPT-11125 Influenza split virus > age 3 15:56:43 CDT CPT-26721 Hand comp min 3V 14:25:19 CDT CPT-40766 Postop F/U Visit 21:40:51 CDT CPT-61848 Postop F/U Visit 10:58:43 CDT CPT-34092 Administration single or combination vac cine inc oral 12:33:54 [employer] CPT-31066 Influenza Preservative Free split virus >age 3 12:33:54 [employer] SUPERVISOR CPT-47366 Administration single or combination vac cine inc oral 09:30:51 CDT CPT-49155 Influenza split virus > age 3 09:30:51 CDT CPT-93455 Postop F/U Visit 15:14:53 CDT CPT-73395 Postop F/U Visit 13:50:14 CDT CPT-74659 Postop F/U Visit 13:34:52 CDT CPT-OV Office Visit 16:55:03 CDT CPT-46293 [place] of cervix w bx ECC 13:32:50 CDT 10/19 CPT-J1885 Toradol 60 mg (Ketorolac) 15:31:59 CDT 2011 CPT-J1885 Toradol 60 mg (Ketorolac) 15:23:54 CDT 2011 CPT-12841 Visit 11:34:37 [employer]PERVIS[employer] CPT-37583 Visit 10:52:39 [employer]IES SUPERVISOR CPT-11376 Visit 10:12:02 [employer]IES SUPERVISOR CPT-24076 Visit 11:22:43 [employer]IES SUPERVISOR CPT-39849 Visit 11:24:12 [employer] SUPERVIS[employer] CPT-96225 Visit 10:47:05 [employer]IES SUPERVISOR CPT-OV Office Visit 10:26:16 [employer]IES SUPERVISOR CPT-OV Office Visit 15:34:31 [employer] SUPERVIS[employer] CPT-06639 Visit 10:42:08 [employer]IES SUPERVISOR CPT-32527 Visit 10:52:45 [employer]IES SUPERVISOR CPT-000 Give Appropriate Flu Vaccine 16:56:41 CDT 2 CPT-97458 Administration single or combination vac cine inc oral 10:33:21 CDT CPT-71843 Influenza split virus > age 3 10:33:21 CDT CPT-84108 Visit 13:23:09 CDT CPT-03737 Visit 18:24:52 CDT CPT-15886 Sono OB comp > 14 weeks 12:07:49 CDT 04/07
--- OUTSIDE RECORDS SUMMARY | 2020-01-18 15:46 | XMS REPORT | Clinical Summary ---
Author Author Admin, Jeri Cabrera [employer] Address Unknown Phone Unavailable Allergies, Adverse Reactions, Alerts Allergy Name Reaction Description Start Date Severity Status Pr ovider TORADOL Rash Severe Active Rajni Yokum STANISLAV RN BACTRIM Critical Active Kalpesh Dong MD ZITHROMAX rash all over Critical Active Darya H aubrey LATEX rash Moderate Active Darya Heck man Conditions or Problems Problem Name Problem [...] Chronic pain syndrome 338.4 Active Rajni Alcazar [employer] Chronic pain syndrome AFTERCARE FOLLOW SURGERY SKIN&SUBCUT TISSUE NEC V58.77 08/23 Active Kalpesh Dong MD Aftercare following surgery of the skin and subcutaneous tissue, NEC Elevated blood pressure without diagnosis of hypertension 796.2 Active Abdirahman Rios MD Elevated bloo d pressure reading without diagnosis of hypertension Smoking motivated to quit 305.1 Active Baldemar Rios MD Tobacco use disorder , INCIDENTAL PROBLEM ICD-V22.2 Inacti ve Abdirahman [...] MD ENCOUNTER FOR THERAPEUTIC DRUG MONITORING ICD-V58.83 Jose M Julian MD AMENORRHEA ICD-626.0 Inactive Good sierra [...] MD Dysuria ICD-788.1 Inactive Good collier MD Swelling of limb ICD-729.81 Inactive Good [...] Inactive Abdirahman Rios MD Back strain ICD-847.9 Jose M Rios MD Sinusitis, acute ICD-461.9 Inactive Abdirahman Casas MD AFTERCARE FOLLOW SURGERY SKIN&SUBCUT TISSUE NEC ICD-V58.77 Inactive Abdirahman Rios MD Impetigo ICD-684 Inactive Abdirahman Rios MD 08/24 AFTERCARE FOLLOW SURGERY SKIN&SUBCUT TISSUE NEC ICD-V58.77 Inactive Abdirahman Rios MD Aftercare following surgery of the skin and subcutaneous tis braden, NEC ICD-V58.77 Inactive Abdirahman Rios MD Hypoglycemia ICD-251.2 Inactive Abdirahman Rios MD Medication List Medication Instructions Start Date Stop Date Generic Name NDC Status Provider Patient Instruction [id number] 50-325-40 MG ORAL TABS 1 po TID PRN Headaches [id number] Active Abdirahman owen MD Active CHANTIX STARTING MONTH MARGARITA 0.5 MG X 11 & 1 MG X 42 TAB S 0.5mg daily for 3 days, then 0.5mg BID for 4 days, then 1mg BID VARENICL INE TARTRATE 19580389616 Active Abdirahman Rios MD Active AMOXICILLIN 500 MG CAPS 2 po BID x 10 days AMOX ICILLIN 23912443094 No Longer Active Abdirahman Rios MD Active PROMETHAZINE HCL 25 MG TABS 1 four times a day as needed for nausea/vomiting PROMETHAZINE HCL 30268760506 No Longer Active Abdirahman Rios MD Active LC-4 LIDOCAINE 4 % EXT CREA apply q 6 hours, prn 08/03 LIDOCAINE 64450454577 No Longer Active Kalpesh Dong MD Active PERCOCET 10-325 MG TABS 1 tablet every 8 hours as needed for antonia n OXYCODONE-ACETAMINOPHEN 01560193628 No Longer Active Kalpesh Dong MD Active HYDROCODONE-ACETAMINOPHEN 5-325 MG TABS 1 tab by mouth every 6 hours as needed for pain HYDROCODONE-ACETAMINOPHEN 66166271683 No Longer Active Kalpesh Dong MD Active PERCOCET 10-325 MG ORAL TABS 1 every 4 hous as needed OXYCODONE-ACETAMINOPHEN 14411942938 Active Hira Moser APRN Active GLYDO 2 % EXT GEL apply to painful areas as needed LIDOCAINE HCL 53478297028 Active Kalpesh Dong MD Active LC-4 LIDOCAINE 4 % EXT CREA apply to painful area every 12 h ours or as needed LIDOCAINE 70398670371 Active Kalpesh Dong MD Active AUGMENTIN 875-125 MG TAB 1 tab by mouth twice daily with food 20 23/05/16 AMOXICILLIN-POT CLAVULANATE 14614559764 No Longer Active Lizeth hi Yokum [employer] 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 FLUTICASONE PROPIONATE 82232601698 No Longer Ac tive Rajni Yokum [employer] Active PERCOCET 10-325 MG ORAL TABS take 1 tab by mouth q 4hours as needed for pain OXYCODONE-ACETAMINOPHEN 44743729587 No Longer Active Rajni Yokum [employer] Active PERCOCET 10-325 MG ORAL TABS one every 6 hours prn pain OXYCODONE-ACETAMINOPHEN 17486786307 No Longer Active Rajni Yokum [employer] Active IBUPROFEN 800 MG TABS 1 tab po tid, with food I BUPROFEN 69344118998 Active Hira Perazal [employer] Active DICLOFENAC SODIUM 50 MG TBEC 1 tablet by mouth four times da tom PRN Pain DICLOFENAC SODIUM 43560496778 No Longer Active Rajni Yokum [employer] Active VIIBRYD 10 & 20 & 40 MG KIT 1 po qd as directed 07/24 VILAZODONE HCL 44729182694 No Longer Active Rajni Yokum [employer] Active ONDANSETRON 4 MG TBDP 1 q4h PRN nausea ONDANSET KELBY 55545254051 No Longer Active Rajni Yokum [employer] Active PERCOCET 10-325 MG TABS 1 tablet every 8 hours as needed for antonia n OXYCODONE-ACETAMINOPHEN 77591657383 No Longer Active Rajni Y okum [employer] Active HYDROCODONE-ACETAMINOPHEN 5-325 MG TABS 1 po TID PRN Pain 9 HYDROCODONE-ACETAMINOPHEN 11995524911 No Longer Active Abdirahman Rios MD Active [id number] 50-325-40 MG ORAL CAPS 1-2 po TID FL N Headache [id number] 77294792288 No Longer Act krishna Kalpesh Dong MD Active ALPRAZOLAM 0.5 MG TABS 1 po BID PRN Anxiety ALP RAZOLAM 70859873416 No Longer Active Kalpesh Dong MD Active TRAZODONE HCL 100 MG TAB 0.5 to 1 po qHS PRN Insomnia TRAZODONE HCL 97257923653 No Longer Active Kalpesh Dong MD Activ e HYDROCODONE-ACETAMINOPHEN 5-325 MG TABS 1 po q6hr PRN Pain 04/09 HYDROCODONE-ACETAMINOPHEN 82242315517 No Longer Active Kalpesh Dong MD Active CYMBALTA 30 MG CPEP 1 cap by mouth daily DULOXE CLEO HCL 10047467072 No Longer Active Abdirahman Rios MD Active IBUPROFEN 600 MG ORAL TABS 1 by mouth twice a day 2014 IBUPROFEN 08410875014 No Longer Active Abdirahman Rios MD Activ e PERCOCET 5-325 MG TAB 1 tab po q 6 hours, prn severe pain 1 OXYCODONE-ACETAMINOPHEN 56045866838 No Longer Active Abdirahman Rios MD Active SPRINTEC 28 0.25-35 MG-MCG TABS 1 pill by mouth daily for bi rth control NORGESTIMATE-ETH ESTRADIOL 92757293093 No Longer Acti ve Hira Moser [employer] Active CYCLOBENZAPRINE HCL 10 MG TABS 1 tablet by mouth three times daily as needed for muscle spasm/pain CYCLOBENZAPRINE HCL 03330968987 No Longer Active Hira Moser [employer] Active HYDROCODONE-ACETAMINOPHEN 5-325 MG TABS 1 po q6hr PRN Pain 03/09 HYDROCODONE-ACETAMINOPHEN 79921786789 No Longer Active Hira Peraza l [employer] Active AUGMENTIN 500-125 MG ORAL TABS 1 by mouth twice a day AMOXICILLIN-POT CLAVULANATE 59548135612 No Longer Active Hira Perazal [employer] Active DICLOFENAC SODIUM 50 MG TBEC 1 tablet by mouth four times da tom PRN Pain DICLOFENAC SODIUM 12156712047 No Longer Active Karenin a Karmenl [employer] Active PROMETHAZINE HCL 25 MG TABS 1 four times a day as needed for nausea/vomiting PROMETHAZINE HCL 32092082663 No Longer Active Abdirahman Rios MD Active HYDROCODONE-ACETAMINOPHEN 5-325 MG TABS 1 tab by mouth every 6 hours as needed PRN Pain HYDROCODONE-ACETAMINOPHEN 82327417480 No Longer Active Abdirahman Rios MD Active GEMFIBROZIL 600 MG TABS 1 po BID GEMFIBROZIL 24735855 005 Active Abdirahman Rios MD Active PERCOCET 5-325 MG ORAL TABS 1 every 6 hours as needed OXYCODONE-ACETAMINOPHEN 18562203807 No Longer Active Abdirahman Rios MD Active PERCOCET 5-325 MG TAB 1 tab po q 6 -8 hours, prn for severe pain OXYCODONE-ACETAMINOPHEN 92197810400 No Longer Active Abdirahman Rios MD Active HYDROCODONE-ACETAMINOPHEN 5-325 MG TABS 1 po q6hr PRN pain 06/30 HYDROCODONE-ACETAMINOPHEN 14258032079 No Longer Active Hira Peraza l [employer] Active GLUCOPHAGE 500 MG ORAL TABS one by mouth 3 times a day METFORMIN HCL 06953161929 No Longer Active Hira Moser [employer] Ac tive PERCOCET 10-325 MG TABS 1 tab by mouth every 6 hours , use sparingly for severe pain OXYCODONE-ACETAMINOPHEN 95665662028 No Longer A ctive Abdirahman Rios MD Active EMLA 2.5-2.5 % EXT CREA apply to skin lesion q 6 hours, prn 2014 LIDOCAINE-PRILOCAINE 68456123326 No Longer Active Abdirahman Rios MD Active PERCOCET 10-325 MG ORAL TABS 1 every 4 hours as needed OXYCODONE-ACETAMINOPHEN 42035607831 No Longer Active Abdirahman Rios MD Active AUGMENTIN 875-125 MG TAB 1 tab by mouth twice daily with food 20 21/10/13 AMOXICILLIN-POT CLAVULANATE 94871849725 No Longer Active Ursula jasmina Frazell [employer] Active PROAIR HFA 108 (90 BASE) MCG/ACT AERS 2 puff q 4-6 hrs PRN 01/24 ALBUTEROL SULFATE 69455271714 No Longer Active Kalpesh Dong MD Active PREDNISONE 20 MG TAB 2 tabs daily for 3 days, 1 t ab daily for 3 days, 1/2 tab daily for 2 days PREDNISONE 23199359111 No Longer Active Abdirahman Rios MD Active KEFLEX 500 MG CAP 1 po qid CEPHALEXIN 493255122 20 No Longer Active Kalpesh Dong MD Active PERCOCET 5-325 MG TAB 1 every 6 hours as needed OXYCODONE-ACETAMINOPHEN 81583315266 No Longer Active Shola MCGILL Active LC-5 LIDOCAINE 5 % CREA apply 1 time daily to affected area 2013 LIDOCAINE (ANORECTAL) 98721604611 No Longer Active Hira F radhaell [employer] Active HYDROCODONE-ACETAMINOPHEN 10-325 MG TABS 1 by mouth ev chaka 8 hours as needed for pain HYDROCODONE-ACETAMINOPHEN 98527380830 No Longer Active Jillina Frazell [employer] Active LORATADINE 10 MG TABS 1 tablet by mouth daily L ORATADINE 44353562051 No Longer Active Jillina Frazell [employer] Active DIFLUCAN 150 MG TAB 1 qODay x 2 doses FLUCONAZO LE 77146377438 No Longer Active Jillina Frazell [employer] Active CYCLOBENZAPRINE HCL 10 MG TABS 1/2 - 1 tab PO tid PRN back p ain, muscle spasm CYCLOBENZAPRINE HCL 71593146854 No Longer Active Karen Moser APRN Active AUGMENTIN 875-125 MG TAB 1 tab by mouth twice daily with food 20 22/05/07 AMOXICILLIN-POT CLAVULANATE 51731821892 No Longer Active Loida Rios MD Active MOBIC 15 MG TABS 1 tab daily MELOXICAM 172302662 14 No Longer Active Abdirahman Rios MD Active PERCOCET 7.5-325 MG TABS 1 PO tid PRN pain OXYCODONE-ACETAMINOPHEN 53593778074 No Longer Active Abdirahman Rios MD Active LIDODERM 5 % PTCH One patch to painful area [place] N. On for 12 hrs, off for 12 hrs. LIDOCAINE 10257357080 No Longer Active Abdirahman Rios MD Active PERCOCET 7.5-325 MG TABS 1 PO q 8 hrs PRN pain OXYCODONE-ACETAMINOPHEN 20103540621 No Longer Active Shola MCGILL Active HYDROCODONE-ACETAMINOPHEN 7.5-325 MG TABS 1 by mouth e very 6 hours as needed for pain HYDROCODONE-ACETAMINOPHEN 75453095739 No Longer Active Good Julian MD Active CLINDAMYCIN HCL 300 MG CAPS 1 po QID x 7 days CLINDAMYCIN HCL 28437022878 No Longer Active Abdirahman Rios MD Activ e BACTRIM DS 800-160 MG TABS 1 po BID x 7 days 5 SULFAMETHOXAZOLE-TRIMETHOPRIM 92195923658 No Longer Active Abdirahman Rios MD Active ENDOCET 10-325 MG TABS 1 q 6 hr prn OXYCODONE-ACETAMINOPHEN 47503390183 No Longer Active Abdirahman Rios MD Active IBUPROFEN 800 MG TABS 1 tid prn IBUPROFEN 941023 44954 No Longer Active Abdirahman Rios MD Active BACTRIM DS 800-160 MG TABS by mouth twice a day 11/05 SULFAMETHOXAZOLE-TRIMETHOPRIM 29323205751 No Longer Active Good Julian MD Active HYDROCODONE-ACETAMINOPHEN 7.5-325 MG TABS 1 four times a day as needed for pain HYDROCODONE-ACETAMINOPHEN 70805183815 No Longer Activ e Good Julian MD Active KEFLEX 500 MG CAP 1 tab po tid CEPHALEXIN 805356 17323 No Longer Active Hira Moser APRN Active IBUPROFEN 800 MG TAB 1 pill three times daily as needed for pain IBUPROFEN 51554495602 No Longer Active Kalpesh Dong MD Active PROMETHAZINE-CODEINE 6.25-10 MG/5ML SYRP 1 tsp every 6 hrs prn c ough PROMETHAZINE-CODEINE 17409959138 No Longer Active Kalpesh Carr Active HYDROCODONE-ACETAMINOPHEN 5-325 MG TABS 1 tab by mouth every 6 hours as needed HYDROCODONE-ACETAMINOPHEN 05286283128 No Longer Activ e Shola MCGILL Active CEPHALEXIN 500 MG CAPS 1 PO bid x 7 days CEPHAL EXIN 97193959538 No Longer Active Shola MCGILL Active BACTRIM DS 800-160 MG TAB 1 tab by mouth twice daily 2 TRIMETHOPRIM-SULFAMETHOXAZOLE 81622254881 No Longer Active Kalpesh Dong MD Active HYDROCODONE-ACETAMINOPHEN 5-325 MG TABS 1 PO tid PRN pain 5 HYDROCODONE-ACETAMINOPHEN 99078748793 No Longer Active Abhinav Galvan MD Active IMPLANON 68 MG IMPL IMPLANTED IN LEFT ARM ETONO GESTREL 46451136335 No Longer Active Hira Moser APRN Active AMOXICILLIN 500 MG TABS 2 tabs PO bid x 10 d AM OXICILLIN 10002172792 No Longer Active Kalpesh Dong MD Active LEVAQUIN 500 MG TABS 1 PO q day x 7 days LEVOFL OXACIN 29231028900 No Longer Active Shola MCGILL Active AMITRIPTYLINE HCL 25 MG TAB 1 tab by mouth daily 60 minutes before bedtime AMITRIPTYLINE HCL 15597185466 No Longer Active Shola MCGILL Active LORTAB 5 5-500 MG TABS 1/2 to 1 tablet by mouth go ry 6 hours as needed for pain HYDROCODONE-ACETAMINOPHEN 09747110267 No Longer Active Shola MCGILL Active CEPHALEXIN 500 MG TABS Take one by mouth four times daily, morning, noon, early evening and bedtime. CEPHALEXIN 78294138731 No Long er Active Hira Moser APRN Active TYLENOL/CODEINE #3 300-30 MG TAB 1-2 po q6hr PRN Pain ACETAMINOPHEN-CODEINE 86028100672 No Longer Active Edilberto Marino DO Active PRISTIQ 50 MG [id number] 1 po qd DESVENLAFAXI NE SUCCINATE 13085580702 No Longer Active Edilberto Marino DO Active PENICILLIN V POTASSIUM 500 MG TAB 1 four times a day 2 PENICILLIN V POTASSIUM 70338393621 No Longer Active Edilberto Marino DO Active DOXYCYCLINE HYCLATE 100 MG CAPS Take one (1) tablet by mouth twice a day DOXYCYCLINE HYCLATE 68802264167 No Longer Active Ronnie Galvan MD Active HYDROCODONE-ACETAMINOPHEN 5-325 MG TABS 1 po q 6hr PRN Pain 2011 HYDROCODONE-ACETAMINOPHEN 73786931139 No Longer Active Patri joan Perez RN Active BACTRIM DS 800-160 MG TAB 1 tab by mouth twice daily 2 TRIMETHOPRIM-SULFAMETHOXAZOLE 55311588380 No Longer Active Kalpesh Dong MD Active LORTAB 5 5-500 MG TABS 1/2 to 1 tablet by mouth go ry 4 hours as needed for pain HYDROCODONE-ACETAMINOPHEN 43237286419 No Longer Active Kalpesh Dong MD Active GENERESS FE 0.8-25 MG-MCG CHEW Take one by mouth daily NORETHIN-ETH ESTRADIOL-FE 26139450618 No Longer Active Kalpesh Dong MD Active HYDROCODONE-ACETAMINOPHEN 7.5-500 MG TABS 1-2 every 4 hours as needed HYDROCODONE-ACETAMINOPHEN 05796582207 No Longer Activ e Kalpesh Dong MD Active FERROUS SULFATE 325 (65 FE) MG TABS 1 tablet by mouth twice yung y FERROUS SULFATE 51805470271 No Longer Active Kalpesh Dong MD Active IBUPROFEN 600 MG TAB 1 po q6-8hr PRN IBUPROFEN 81866942578 No Longer Active Kalpesh Dong MD Active SPIRONOLACTONE 25 MG TAB 1 tablet by mouth daily 01/22 SPIRONOLACTONE 94391987525 No Longer Active Kalpesh Dong MD Acti ve HYDROCODONE-ACETAMINOPHEN 7.5-325 MG TABS 1 po QID PRN Pain 2011 HYDROCODONE-ACETAMINOPHEN 41463402273 No Longer Active Kalpesh Dong MD Active CLINDAMYCIN HCL 300 MG CAPS 1 po q6hr x 7 days CLINDAMYCIN HCL 11025522369 No Longer Active Edilberto Marino DO Active PREDNISONE 20 MG TAB 2 tabs daily for 4 days, 1 t ab daily for 4 days, 1/2 tab daily for 4 days PREDNISONE 68908910732 No Longer Active Edilberto Marino DO Active PERCOCET 5-325 MG TABS 1 tablet by mouth every 6 hours as ne eded for pain OXYCODONE-ACETAMINOPHEN 24536398931 No Longer Active Abdirahman Rios MD Active VITAMINS TABS Take one by mouth daily MV & MIN W/FE-FA TABS 16757484225 No Longer Active Abdirahman Rios MD Active LUIS 3-0.02 MG TABS 1 tablet by mouth daily as directed DROSPIRENONE-ETHINYL ESTRADIOL 86299459291 No Longer Active Abdirahman Rios MD Active LORATADINE 10 MG TABS 1 tablet by mouth daily L ORATADINE 82554925102 No Longer Active Kalpesh Dong MD Active HYDROCODONE-ACETAMINOPHEN 5-325 MG TABS 1 po q 6hr PRN Pain 2010 HYDROCODONE-ACETAMINOPHEN 33609135977 No Longer Active Edilberto Marino DO Active BACTRIM DS 800-160 MG TAB 1 tab by mouth twice daily 2 TRIMETHOPRIM-SULFAMETHOXAZOLE 60580282387 No Longer Active Abdirahman Rios MD Active 28-0.8 MG TABS Take one by mouth daily 09/20 VIT-FE FUMARATE-FA 24422378498 No Longer Active Abdirahman Rios MD Active CIPRO 500 MG TAB 1 tablet by mouth twice daily CIPROFLOXACIN HCL 44976562509 No Longer Active Abdirahman Rios MD Active BENADRYL 25 MG CAP 1 po q8hr PRN Congestion DIPHENHYDRAMINE HCL 19819661463 No Longer Active Abdirahman Rios MD Active ZOLOFT 50 MG TAB 1 po qd SERTRALINE HCL 455314 73281 No Longer Active Abdirahman Rios MD Active AMOXICILLIN 875 MG TABS 1 tab by mouth twice daily 201 08/09/13 AMOXICILLIN 28087544454 No Longer Active Abdirahman Rios MD Activ e AMOXICILLIN 875 MG TABS 1 tab by mouth twice daily 201 07/19/27 AMOXICILLIN 15398781560 No Longer Active Abdirahman Rios MD Activ e BACTRIM DS 800-160 MG TAB 2 tab by mouth twice daily 2 TRIMETHOPRIM-SULFAMETHOXAZOLE 60265510796 No Longer Active Abdirahman Rios MD Active KEFLEX 500 MG CAP 1 po tid x 10 days CEPHALEXIN 51537944268 No Longer Active Abdirahman Rios MD Active AMOXICILLIN 875 MG TABS 1 tab by mouth twice daily 201 07/18/07 AMOXICILLIN 09816364753 No Longer Active Abdirahman Rios MD Activ e BACTRIM DS 800-160 MG TAB 2 tab by mouth twice daily 2 BACTRIM DS 800-160 MG TAB 888774 TRIMETHOPRIM-SULFAMETHOXAZOLE Inactive ZOLOFT 50 MG TAB 1 po qd ZOLOFT 50 MG TAB 3129 41 SERTRALINE HCL Inactive BENADRYL 25 MG CAP 1 po q8hr PRN Congestion BENADRYL 25 MG CAP 4002775 DIPHENHYDRAMINE HCL Inactive 28-0.8 MG TABS Take one by mouth daily 09/20 28-0.8 MG TABS VIT-FE FUMARATE-FA Inactive HYDROCODONE-ACETAMINOPHEN 5-325 MG TABS 1 po q 6hr PRN Pain 2010 HYDROCODONE-ACETAMINOPHEN 5-325 MG TABS 627677 HYDROCODONE-ACETAMINOPHEN Inactive LORATADINE 10 MG TABS 1 tablet by mouth daily LORATADINE 10 MG TABS 290704 LORATADINE Inactive LUIS 3-0.02 MG TABS 1 tablet by mouth daily as directed LUIS 3-0.02 MG TABS 459683 DROSPIRENONE-ETHINYL ESTRADIOL Inactive VITAMINS TABS Take one by mouth daily VITAMINS TABS MV & MIN W/FE-FA TABS Inactive PERCOCET 5-325 MG TABS 1 tablet by mouth every 6 hours as ne eded for pain PERCOCET 5-325 MG TABS 2578711 OXYCODONE-ACETAMIN OPHEN Inactive PREDNISONE 20 MG TAB 2 tabs daily for 4 days, 1 t ab daily for 4 days, 1/2 tab daily for 4 days PREDNISONE 20 MG TAB 518856 PREDNISON E Inactive CLINDAMYCIN HCL 300 MG CAPS 1 po q6hr x 7 days CLINDAMYCIN HCL 300 MG CAPS 649100 CLINDAMYCIN HCL Inactive HYDROCODONE-ACETAMINOPHEN 7.5-325 MG TABS 1 po QID PRN Pain 2011 HYDROCODONE-ACETAMINOPHEN 7.5-325 MG TABS 081974 HYDROCODONE-ACETAMINOPHEN Inactive SPIRONOLACTONE 25 MG TAB 1 tablet by mouth daily 01/22 SPIRONOLACTONE 25 MG TAB 151032 SPIRONOLACTONE Inactive IBUPROFEN 600 MG TAB 1 po q6-8hr PRN IBUPROFEN 600 MG TAB 869032 IBUPROFEN Inactive FERROUS SULFATE 325 (65 FE) MG TABS 1 tablet by mouth twice yung y FERROUS SULFATE 325 (65 FE) MG TABS 850280 FERROUS SULF ATE Inactive HYDROCODONE-ACETAMINOPHEN 7.5-500 MG TABS 1-2 every 4 hours as needed HYDROCODONE-ACETAMINOPHEN 7.5-500 MG TABS HYDROCODONE-ACETAMINOPHEN Inactive GENERESS FE 0.8-25 MG-MCG CHEW Take one by mouth daily GENERESS FE 0.8-25 MG-MCG CHEW 1418505 NORETHIN-ETH ESTRADIOL-FE Inactive LORTAB 5 5-500 MG TABS 1/2 to 1 tablet by mouth go ry 4 hours as needed for pain LORTAB 5 5-500 MG TABS HYDROCODONE-A CETAMINOPHEN Inactive BACTRIM DS 800-160 MG TAB 1 tab by mouth twice daily 2 BACTRIM DS 800-160 MG TAB 847949 TRIMETHOPRIM-SULFAMETHOXAZOLE Inac tive HYDROCODONE-ACETAMINOPHEN 5-325 MG TABS 1 po q 6hr PRN Pain 2011 HYDROCODONE-ACETAMINOPHEN 5-325 MG TABS 633649 HYDROCODONE-ACETAMINOPHEN Inactive DOXYCYCLINE HYCLATE 100 MG CAPS Take one (1) tablet by mouth twice a day DOXYCYCLINE HYCLATE 100 MG CAPS 6556907 DOXYCYCLINE HYCLATE Inactive PENICILLIN V POTASSIUM 500 MG TAB 1 four times a day 2 PENICILLIN V POTASSIUM 500 MG TAB 038688 PENICILLIN V POTASSIUM Siri ctive PRISTIQ 50 MG [id number] 1 po qd PRISTIQ 50 MG [id number] DESVENLAFAXINE SUCCINATE Inactive TYLENOL/CODEINE #3 300-30 MG TAB 1-2 po q6hr PRN Pain TYLENOL/CODEINE #3 300-30 MG TAB 572619 ACETAMINOPHEN-CODEINE Inact krishna CEPHALEXIN 500 MG TABS Take one by mouth four times daily, morning, noon, early evening and bedtime. CEPHALEXIN 500 MG TABS 906938 CEPHALEXIN Inactive LORTAB 5 5-500 MG TABS 1/2 to 1 tablet by mouth go ry 6 hours as needed for pain LORTAB 5 5-500 MG TABS HYDROCODONE-A CETAMINOPHEN Inactive AMITRIPTYLINE HCL 25 MG TAB 1 tab by mouth daily 60 minutes before bedtime AMITRIPTYLINE HCL 25 MG TAB 279406 AMITRIPTYLINE HCL Inactive AMOXICILLIN 500 MG TABS 2 tabs PO bid x 10 d 7 AMOXICILLIN 500 MG TABS 371929 AMOXICILLIN Inactive IMPLANON 68 MG IMPL IMPLANTED IN LEFT ARM IMPLANON 68 MG IMPL ETONOGESTREL Inactive HYDROCODONE-ACETAMINOPHEN 5-325 MG TABS 1 PO tid PRN pain 5 HYDROCODONE-ACETAMINOPHEN 5-325 MG TABS 787732 HYDROCODONE-ACETAMIN OPHEN Inactive BACTRIM DS 800-160 MG TAB 1 tab by mouth twice daily 2 BACTRIM DS 800-160 MG TAB 702956 TRIMETHOPRIM-SULFAMETHOXAZOLE Inac tive CEPHALEXIN 500 MG CAPS 1 PO bid x 7 days CEPHALEXIN 500 MG CAPS 004545 CEPHALEXIN Inactive HYDROCODONE-ACETAMINOPHEN 5-325 MG TABS 1 tab by mouth every 6 hours as needed HYDROCODONE-ACETAMINOPHEN 5-325 MG TABS 241026 HYDROCODONE-ACETAMINOPHEN Inactive PROMETHAZINE-CODEINE 6.25-10 MG/5ML SYRP 1 tsp every 6 hrs prn c ough PROMETHAZINE-CODEINE 6.25-10 MG/5ML SYRP 701063 PROMETH AZINE-CODEINE Inactive IBUPROFEN 800 MG TAB 1 pill three times daily as needed for pain IBUPROFEN 800 MG TAB IBUPROFEN Inactive KEFLEX 500 MG CAP 1 tab po tid KEFLEX 500 MG CAP 564345 CEPHALEXIN Inactive HYDROCODONE-ACETAMINOPHEN 7.5-325 MG TABS 1 four times a day as needed for pain HYDROCODONE-ACETAMINOPHEN 7.5-325 MG TABS 107028 HYDROCODONE-ACETAMINOPHEN Inactive BACTRIM DS 800-160 MG TABS by mouth twice a day 11/05 BACTRIM DS 800-160 MG TABS 931132 SULFAMETHOXAZOLE-TRIMETHOPRIM Inactive IBUPROFEN 800 MG TABS 1 tid prn IBUPROFEN 800 MG TABS 188660 IBUPROFEN Inactive ENDOCET 10-325 MG TABS 1 q 6 hr prn ENDOC ET 10-325 MG TABS 0875860 OXYCODONE-ACETAMINOPHEN Inactive HYDROCODONE-ACETAMINOPHEN 7.5-325 MG TABS 1 by mouth e very 6 hours as needed for pain HYDROCODONE-ACETAMINOPHEN 7.5-325 MG TABS 586776 HYDROCODONE-ACETAMINOPHEN Inactive PERCOCET 7.5-325 MG TABS 1 PO q 8 hrs PRN pain PERCOCET 7.5-325 MG TABS 8686475 OXYCODONE-ACETAMINOPHEN Inactive LIDODERM 5 % PTCH One patch to painful area [place] N. On for 12 hrs, off for 12 hrs. LIDODERM 5 % PTCH 2317580 LIDOCAINE Inactiv e PERCOCET 7.5-325 MG TABS 1 PO tid PRN pain PERCOCET 7.5- 325 MG TABS 6509214 OXYCODONE-ACETAMINOPHEN Inactive MOBIC 15 MG TABS 1 tab daily MOBIC 15 MG TABS 15 2695 MELOXICAM Inactive CYCLOBENZAPRINE HCL 10 MG TABS 1/2 - 1 tab PO tid PRN back p ain, muscle spasm CYCLOBENZAPRINE HCL 10 MG TABS 265581 CYCLOBENZA JOSEPH HCL Inactive LORATADINE 10 MG TABS 1 tablet by mouth daily LORATADINE 10 MG TABS 089882 LORATADINE Inactive HYDROCODONE-ACETAMINOPHEN 10-325 MG TABS 1 by mouth ev chaka 8 hours as needed for pain HYDROCODONE-ACETAMINOPHEN 10-325 MG TABS [id number] HYDROCODONE-ACETAMINOPHEN Inactive LC-5 LIDOCAINE 5 % CREA apply 1 time daily to affected area 2013 LC-5 LIDOCAINE 5 % CREA [id number] LIDOCAINE (ANORECTAL) In active PERCOCET 5-325 MG TAB 1 every 6 hours as needed PERCOCET 5-325 MG TAB [id number] OXYCODONE-ACETAMINOPHEN Inactive KEFLEX 500 MG CAP 1 po qid KEFLEX 500 MG CAP 30 9114 CEPHALEXIN Inactive PROAIR HFA 108 (90 BASE) MCG/ACT AERS 2 puff q 4-6 hrs PRN 01/24 PROAIR HFA 108 (90 BASE) MCG/ACT AERS ALBUTEROL SULFATE Inactive PERCOCET 10-325 MG ORAL TABS 1 every 4 hours as needed PERCOCET 10-325 MG ORAL TABS [id number] OXYCODONE-ACETAMINOPHEN Inactiv e EMLA 2.5-2.5 % EXT CREA apply to skin lesion q 6 hours, prn 2014 EMLA 2.5-2.5 % EXT CREA [id number] LIDOCAINE-PRILOCAINE Siri ctive PERCOCET 10-325 MG TABS 1 tab by mouth every 6 hours , use sparingly for severe pain PERCOCET 10-325 MG TABS [id number] OXYCODONE-ACETAMINOPHEN Inactive GLUCOPHAGE 500 MG ORAL TABS one by mouth 3 times a day GLUCOPHAGE 500 MG ORAL TABS [id number] METFORMIN HCL Inactive HYDROCODONE-ACETAMINOPHEN 5-325 MG TABS 1 po q6hr PRN pain 06/30 HYDROCODONE-ACETAMINOPHEN 5-325 MG TABS [id number] HYDROCOD ONE-ACETAMINOPHEN Inactive PERCOCET 5-325 MG TAB 1 tab po q 6 -8 hours, prn for severe pain PERCOCET 5-325 MG TAB [id number] OXYCODONE-ACETAMINOPHEN In active PERCOCET 5-325 MG ORAL TABS 1 every 6 hours as needed PERCOCET 5-325 MG ORAL TABS [id number] OXYCODONE-ACETAMINOPHEN Inactive DICLOFENAC SODIUM 50 MG TBEC 1 tablet by mouth four times da tom PRN Pain DICLOFENAC SODIUM 50 MG TBEC [id number] DICLOFENAC S ODIUM Inactive AUGMENTIN 500-125 MG ORAL TABS 1 by mouth twice a day AUGMENTIN 500-125 MG ORAL TABS [id number] AMOXICILLIN-POT CLAVULANATE I nactive HYDROCODONE-ACETAMINOPHEN 5-325 MG TABS 1 po q6hr PRN Pain 03/09 HYDROCODONE-ACETAMINOPHEN 5-325 MG TABS 306837 HYDROCOD ONE-ACETAMINOPHEN Inactive CYCLOBENZAPRINE HCL 10 MG TABS 1 tablet by mouth three times daily as needed for muscle spasm/pain CYCLOBENZAPRINE HCL 10 MG TABS 74296 8 CYCLOBENZAPRINE HCL Inactive SPRINTEC 28 0.25-35 MG-MCG TABS 1 pill by mouth daily for bi rth control SPRINTEC 28 0.25-35 MG-MCG TABS 383737 NORGESTIMATE-ETH ESTRADIOL Inactive PERCOCET 5-325 MG TAB 1 tab po q 6 hours, prn severe pain PERCOCET 5-325 MG TAB [id number] OXYCODONE-ACETAMINOPHEN Inactive IBUPROFEN 600 MG ORAL TABS 1 by mouth twice a day 2014 IBUPROFEN 600 MG ORAL TABS 981368 IBUPROFEN Inactive CYMBALTA 30 MG CPEP 1 cap by mouth daily CYMBALTA 30 MG CPEP 750396 DULOXETINE HCL Inactive HYDROCODONE-ACETAMINOPHEN 5-325 MG TABS 1 po q6hr PRN Pain 04/09 HYDROCODONE-ACETAMINOPHEN 5-325 MG TABS 791133 HYDROCOD ONE-ACETAMINOPHEN Inactive TRAZODONE HCL 100 MG TAB 0.5 to 1 po qHS PRN Insomnia TRAZODONE HCL 100 MG TAB 123518 TRAZODONE HCL Inactive ALPRAZOLAM 0.5 MG TABS 1 po BID PRN Anxiety ALPRAZOLAM 0.5 MG TABS 668068 ALPRAZOLAM Inactive VSUXUDZZBY-CXM-LJJCTAEN 50-325-40 MG ORAL CAPS 1-2 po TID FL N Headache BVPBNGEODN-VEH-JBOQGPPJ 50-325-40 MG ORAL CAPS 2 13351 QKNGNJVZXK-NQUAXMX-BGFIXYQT Inactive HYDROCODONE-ACETAMINOPHEN 5-325 MG TABS 1 po TID PRN Pain 9 HYDROCODONE-ACETAMINOPHEN 5-325 MG TABS 059767 HYDROCODONE-ACETAMIN OPHEN Inactive PERCOCET 10-325 MG TABS 1 tablet every 8 hours as needed for antonia n PERCOCET 10-325 MG TABS 4753430 OXYCODONE-ACETAMINOPHEN Inactive ONDANSETRON 4 MG TBDP 1 q4h PRN nausea ON DANSETRON 4 MG TBDP 874006 ONDANSETRON Inactive VIIBRYD 10 & 20 & 40 MG KIT 1 po qd as directed 07/24 VIIBRYD 10 & 20 & 40 MG KIT VILAZODONE HCL Inactive DICLOFENAC SODIUM 50 MG TBEC 1 tablet by mouth four times da tom PRN Pain DICLOFENAC SODIUM 50 MG TBEC 473131 DICLOFENAC S ODIUM Inactive PERCOCET 10-325 MG ORAL TABS one every 6 hours prn pain PERCOCET 10-325 MG ORAL TABS 3814681 OXYCODONE-ACETAMINOPHEN Inactiv e PERCOCET 10-325 MG ORAL TABS take 1 tab by mouth q 4hours as needed for pain PERCOCET 10-325 MG ORAL TABS 3762124 OXYCODONE-ACETAMINOPHEN Inactive FLONASE ALLERGY RELIEF 50 MCG/ACT NASAL SUSP One spray in each nostril twice a day. FLONASE ALLERGY RELIEF 50 MCG/ACT NASAL S INTERMEDIATE 709755 FLUTICASONE PROPIONATE Inactive AUGMENTIN 875-125 MG TAB 1 tab by mouth twice daily with food 20 23/05/16 AUGMENTIN 875-125 MG TAB 565006 AMOXICILLIN-POT [place] Inactive HYDROCODONE-ACETAMINOPHEN 5-325 MG TABS 1 tab by mouth every 6 hours as needed for pain HYDROCODONE-ACETAMINOPHEN 5-325 MG TABS 8 72399 HYDROCODONE-ACETAMINOPHEN Inactive PERCOCET 10-325 MG TABS 1 tablet every 8 hours as needed for antonia n PERCOCET 10-325 MG TABS 1033709 OXYCODONE-ACETAMINOPHEN Inactive LC-4 LIDOCAINE 4 % EXT CREA apply q 6 hours, prn 08/03 LC-4 LIDOCAINE 4 % EXT CREA 9467860 LIDOCAINE Inactive PROMETHAZINE HCL 25 MG TABS 1 four times a day as needed for nausea/vomiting PROMETHAZINE HCL 25 MG TABS 842112 PROMETHAZINE HCL Inactive AMOXICILLIN 875 MG TABS 1 tab by mouth twice daily 201 07/18/07 AMOXICILLIN 875 MG TABS 191714 AMOXICILLIN Inactive KEFLEX 500 MG CAP 1 po tid x 10 days KEFLEX 500 MG CAP 106202 CEPHALEXIN Inactive AMOXICILLIN 875 MG TABS 1 tab by mouth twice daily 201 07/19/27 AMOXICILLIN 875 MG TABS 010391 AMOXICILLIN Inactive AMOXICILLIN 875 MG TABS 1 tab by mouth twice daily 201 08/09/13 AMOXICILLIN 875 MG TABS 704327 AMOXICILLIN Inactive CIPRO 500 MG TAB 1 tablet by mouth twice daily CIPRO 500 MG TAB 130172 CIPROFLOXACIN HCL Inactive BACTRIM DS 800-160 MG TAB 1 tab by mouth twice daily 2 BACTRIM DS 800-160 MG TAB 301927 TRIMETHOPRIM-SULFAMETHOXAZOLE Inac tive LEVAQUIN 500 MG TABS 1 PO q day x 7 days LEVAQUIN 500 MG TABS 275536 LEVOFLOXACIN Inactive CLINDAMYCIN HCL 300 MG CAPS 1 po QID x 7 days CLINDAMYCIN HCL 300 MG CAPS 835431 CLINDAMYCIN HCL Inactive AUGMENTIN 875-125 MG TAB 1 tab by mouth twice daily with food 20 22/05/07 AUGMENTIN 875-125 MG TAB 726523 AMOXICILLIN-POT [place] Inactive DIFLUCAN 150 MG TAB 1 qODay x 2 doses DIFLUCAN 150 MG TAB 649694 FLUCONAZOLE Inactive PREDNISONE 20 MG TAB 2 tabs daily for 3 days, 1 t ab daily for 3 days, 1/2 tab daily for 2 days PREDNISONE 20 MG TAB 028032 PREDNISON E Inactive AUGMENTIN 875-125 MG TAB 1 tab by mouth twice daily with food 20 21/10/13 AUGMENTIN 875-125 MG TAB 577941 AMOXICILLIN-POT [place] Inactive HYDROCODONE-ACETAMINOPHEN 5-325 MG TABS 1 tab by mouth every 6 hours as needed PRN Pain HYDROCODONE-ACETAMINOPHEN 5-325 MG TABS 8 62829 HYDROCODONE-ACETAMINOPHEN Inactive PROMETHAZINE HCL 25 MG TABS 1 four times a day as needed for nausea/vomiting PROMETHAZINE HCL 25 MG TABS 278250 PROMETHAZINE HCL Inactive AMOXICILLIN 500 MG CAPS 2 po BID x 10 days AMOXICILLIN 500 MG CAPS 168537 AMOXICILLIN Inactive Advance Directives Directive Description Start Date PERMISSION TO SHARE Immunizations Vaccine Administration Date Value Standard Alf cription Seasonal influenza vaccine, injectable, containing preservative, for > 3 years old (Afluria, FluLaval, Fluzone, Fluvirin, Fluarix, Agriflu(>= 18 yo)) Fluzone (>3 yrs.) [[id number]] Influenza, seasonal, inject able Seasonal influenza vaccine, injectable, preservative free, for > 3 years old (Afluria, FluLaval, Fluzone, Fluvirin, Fluarix, Agriflu(>= 18 yo)) Fluzone preservative free (>3 yrs.) [[id number]] Influenza, seasonal, injectable, preservative free Seasonal influenza vaccine, injectable, containing preservative, for > 3 years old (Afluria, FluLaval, Fluzone, Fluvirin, Fluarix, Agriflu(>= 18 yo)) Fluzone (>3 yrs.) [[id number]] Influenza, seasonal, inject able Seasonal influenza vaccine, injectable, containing preservative, for > 3 years old (Afluria, FluLaval, Fluzone, Fluvirin, Fluarix, Agriflu(>= 18 yo)) Fluzone (>3 yrs.) [[id number]] Influenza, seasonal, inject able dT (Diphtheria and Tetanus) booster given Histor ica Td(adult) unspecified formulation Vital Signs Date Name Value Unit Range Description blood pressure, diastolic - 8462-4 107 mm[Hg] [...] - 3141-9 233 [lb_av] Weigh t Measured Diagnostic Results Date [...] Panel - Chemistry sodium, serum 142 mmol/L 305-802 2000/05/12 potassium, serum 4.8 mmol/L 3.5-5.2 chloride, serum [...] ... - Chemistry sodium, serum 137 mmol/L 145-352 8784/02/24 carbon dioxide, venous blood 26.3 mmol/L 21.0-32 .0 potassium, serum 4.1 mmol/L 3.5-5.2 chloride, serum 101 mmol/L 98-107 blood glucose 87 mg/dL 65-110 urea nitrogen, blood 7 mg/dL 7-18 creatinine, serum 0.60 mg/dL 0.55-1.30 alanine aminotransferase (SGPT), serum 55 U/L -78 aspartate aminotransferase (SGOT), serum 26 U/L 15-37 [...] Panel - Chemistry cholesterol, serum 181 mg/dL 117-530 0690/09/01 triglyceride, serum, fasting 341 mg/dL 30-200 HDL cholesterol, serum 22 mg/dL 32-96 LDL cholesterol, serum 91 mg/dL 0-130 cholesterol, serum 165 mg/dL 397-381 3987/05/12 triglyceride, serum, fasting 524 mg/dL 30-200 HDL [...] negative Encounters Code Encounter Date Provider Facility CPT-23481 Level 4 Est. Patient 16:38:26 [employer] Abdirahman Rios MD [facility] CPT-74207 Level 3 Est. Patient 05:31:41 [employer] Kalpesh goins MD [facility] CPT-17472 Level 3 Est. Patient 11:22:02 [employer] Hira muniz [facility] CPT-00040 Level 3 Est. Patient 21:00:18 [employer] Rajni danielson [facility] CPT-90559 Level 3 Est. Patient 14:15:00 [employer] Kalpesh goins MD [facility] CPT-57832 Level 2 Est. Patient 19:57:52 [employer] Rajni danielson [facility] CPT-75320 Level 3 Est. Patient 16:58:40 [employer] Bj funes MD [facility] CPT-62002 Level 3 Est. Patient 08:51:33 CDT Kalpesh goins MD [facility] CPT-52283 Level 4 Est. Patient 14:14:53 CDT Abdirahman Rios MD [facility] CPT-02323 Level 3 Est. Patient 15:47:40 CDT Kalpesh goins MD [facility]-54273 Level 3 Est. Patient 10:57:26 CDT Abdirahman Rios MD [facility]-02644 Level 3 Est. Patient 14:29:53 CDT Abhinav Galvan MD [facility] CPT-69238 Level 2 Est. Patient 16:33:01 CDT Kalpesh goins MD [facility]-73358 Level 4 Est. Patient 16:44:56 CDT Abdirahman Rios MD [facility]-40433 Level 2 Est. Patient 07:49:32 CDT Kalpesh goins MD [facility] CPT-45600 Level 3 New Patient 15:47:11 [employer] Bj huber MD [facility]-55428 Level 4 Est. Patient 14:37:38 [employer] Abdirahman Rios MD [facility] CPT-44282 Level 2 Est. Patient 13:32:17 [employer] Kalpesh goins MD [facility]-04041 Level 3 Est. Patient 17:32:57 [employer] Edilberto tiwari [facility] CPT-16117 Level 3 Est. Patient 17:22:33 [employer] Edilberto tiwari [facility] CPT-47085 Level 2 Est. Patient 16:57:09 [employer] Kalpesh goins MD [facility]-20987 Level 3 Est. Patient 14:03:08 [employer] Abdirahman Rios MD [facility]-64888 Level 3 Est. Patient 18:12:34 CDT Shola Wright [facility] CPT-05516 Level 3 Est. Patient 19:34:46 CDT Shola W Cloven [facility] CPT-47861 Level 3 Est. Patient 14:19:37 CDT Abdirahman Rios MD [facility] CPT-55292 Level 3 Est. Patient 14:11:58 CDT Kalpesh goins MD [facility] CPT-28054 Level 3 Est. Patient 16:50:00 CDT Michelle Deleon atilio MERCADO [facility] CPT-08565 Level 3 Est. Patient 17:11:32 [employer] Brandie bates MD PhD [facility] CPT-37114 Level 3 Est. Patient 16:31:47 [employer] Shola Wright [facility] CPT-28243 Level 3 Est. Patient 17:51:10 [employer] Abhinav Galvan MD [facility] CPT-07146 Level 4 Est. Patient 12:54:56 [employer] Kalpesh goins MD [facility] CPT-26160 Level 4 Est. Patient 12:53:56 [employer] Kalpesh goins MD [facility] CPT-57059 Level 3 Est. Patient 17:56:58 CDT Shola Wright [facility] CPT-61466 Level 3 Est. Patient 14:26:20 CDT Janak butcher [facility] CPT-10664 Level 3 Est. Patient 09:38:41 CDT Shola Wright [facility] CPT-79337 Level 3 Est. Patient 14:45:26 CDT Edilberto tiwari [facility] CPT-30900 Level 3 Est. Patient 10:51:33 CDT [facility] Patient 11:57:55 [employer] hSola Wright [facility] CPT-34929 Level 3 Est. Patient 09:53:33 [employer] Edilberto tiwari DO [facility] CPT-64793 Level 3 Est. Patient 14:42:54 [employer] Abhinav Galvan MD [facility] CPT-72512 Level 3 Est. Patient 15:10:02 CDT Janak Dominguez guadalupe MCGILL [facility] [place] [facility] CPT-08040 Level 3 Est. Patient 15:20:20 CDT Theo dennis MD [facility] CPT-78301 Level 2 Est. Patient 14:08:57 CDT Kalpesh goins MD [facility] CPT-33522 Level 3 Est. Patient 13:56:19 CDT Abdirahman Rios MD [facility] CPT-21600 Level 3 Est. Patient 13:59:37 CDT Abdirahman Rios MD [facility]-58779 Level 2 Est. Patient 14:44:59 CDT Kalpesh goins MD [facility] CPT-89450 Level 3 Est. Patient 06:06:23 CDT Edilberto tiwari DO [facility] CPT-55970 Level 3 Est. Patient 15:23:54 CDT Abdirahman Rios MD [facility] CPT-56888 Level 3 Est. Patient 15:43:49 CDT Abdirahman Rios MD [facility] CPT-01299 Level 3 Est. Patient 12:46:47 [employer] Abdirahman Rios MD [facility] CPT-01130 Level 3 Est. Patient 08:13:35 [employer] Abdirahman Rios MD [facility] CPT-73724 Level 2 Est. Patient 09:36:42 [employer] Abdirahman Rios MD [facility] CPT-78331 Level 3 Est. Patient 10:56:43 CDT Abdirahman Rios MD [facility] CPT-42257 Level 3 Est. Patient 18:24:52 CDT Abdirahman Rios MD [facility] CPT-42347 Level 3 Est. Patient 13:27:22 CDT Abdirahman Rios MD [facility] Procedures Code Procedure Name Date Entry Date Standard Desc ription CPT-69854 Postop F/U Visit 16:21:51 [employer] CPT-75201 Postop F/U Visit 17:09:41 [employer] CPT-58727 Postop F/U Visit 14:08:43 [employer] CPT-30017 Postop F/U Visit 15:18:16 [employer] CPT-26228 Postop F/U Visit 15:03:49 [employer] CPT-28765 Postop F/U Visit 14:45:23 [employer] CPT-19347 Postop F/U Visit 14:11:03 [employer] CPT-28206 Postop F/U Visit 18:21:21 [employer] CPT-97829 Postop F/U Visit 15:57:12 [employer] CPT-75527 Bladder Instillation 16:58:41 [employer] 6 CPT-77439 Fluzone Quadrivalent Intramuscular Suspe nsion 0.5 ML 15:20:56 [employer] CPT-10415 Immunization Single Admin 15:20:56 [employer] 2014 CPT-11834 Excis pilonidal cyst simple 08:51:34 CDT 20 22/04/20 CPT-99404 Venipuncture Draw Fee 14:27:29 CDT CPT-76277 Postop F/U Visit 15:27:43 CDT CPT-35686 Postop F/U Visit 14:40:59 CDT CPT-19156 Postop F/U Visit 15:02:46 CDT CPT-93447 Postop F/U Visit 11:29:00 [employer] CPT-J0696 Rocephin 1000 mg (Ceftriaxone) 17:22:33 [employer] CPT-70780 Postop F/U Visit 18:41:07 [employer] CPT-92387 Postop F/U Visit 08:19:08 [employer] CPT-01643 Immunization Single Admin 16:41:53 CDT 2013 CPT-69461 Fluzone Quadrivalent Intramuscular Suspe nsion 0.5 ML 16:41:53 CDT CPT-OV Office Visit 16:39:18 CDT CPT-OV Office Visit 16:16:36 CDT CPT-OV Office Visit 15:34:48 CDT CPT-33366 Postop F/U Visit 14:50:12 CDT CPT-12457 Postop F/U Visit 14:41:10 CDT CPT-12532 Venipuncture Draw Fee 11:38:04 [employer] CPT-52679 Postop F/U Visit 19:02:59 [employer] CPT-18725 Postop F/U Visit 12:04:54 [employer] CPT-66915 Administration single or combination vac cine inc oral 15:56:43 CDT CPT-88758 Influenza split virus > age 3 15:56:43 CDT CPT-89740 Hand comp min 3V 14:25:19 CDT CPT-58724 Postop F/U Visit 21:40:51 CDT CPT-35795 Postop F/U Visit 10:58:43 CDT CPT-83456 Administration single or combination vac cine inc oral 12:33:54 [employer] CPT-29227 Influenza Preservative Free split virus >age 3 12:33:54 [employer] CPT-60715 Administration single or combination vac cine inc oral 09:30:51 CDT CPT-89741 Influenza split virus > age 3 09:30:51 CDT CPT-79904 Postop F/U Visit 15:14:53 CDT CPT-76997 Postop F/U Visit 13:50:14 CDT CPT-39086 Postop F/U Visit 13:34:52 CDT CPT-OV Office Visit 16:55:03 CDT CPT-99571 [place] of cervix w bx ECC 13:32:50 CDT 10/19 CPT-J1885 Toradol 60 mg (Ketorolac) 15:31:59 CDT 2011 CPT-J1885 Toradol 60 mg (Ketorolac) 15:23:54 CDT 2011 CPT-49397 Visit 11:34:37 [employer] CPT-43230 Visit 10:52:39 [employer] CPT-78455 Visit 10:12:02 [employer] CPT-39876 Visit 11:22:43 [employer] CPT-49934 Visit 11:24:12 [employer] CPT-13968 Visit 10:47:05 [employer] CPT-OV Office Visit 10:26:16 [employer] CPT-OV Office Visit 15:34:31 [employer] CPT-15545 Visit 10:42:08 [employer] CPT-68092 Visit 10:52:45 [employer] CPT-000 Give Appropriate Flu Vaccine 16:56:41 CDT 2 CPT-93770 Administration single or combination vac cine inc oral 10:33:21 CDT CPT-95414 Influenza split virus > age 3 10:33:21 CDT CPT-81740 Visit 13:23:09 CDT CPT-64938 Visit 18:24:52 CDT CPT-84605 Sono OB comp > 14 weeks 12:07:49 CDT 04/07
--- OUTSIDE RECORDS SUMMARY | 2020-01-18 15:47 | XMS REPORT | Clinical Summary ---
Author Author Admin, Jeri Rashid Organization [facility] Address Unknown Phone Unavailable Allergies, Adverse [...] BACK PAIN, LUMBAR, CHRONIC 724.2 Correction Brigitte Mario Lumbago Dysmenorrhea, severe 625.3 Resolved Kalpesh bernal [...] SURGERY SKIN&SUBCUT TISSUE NEC V58.77 07/28 Resolved Abdirahmna Rios MD Aftercare following surgery of the [...] NEC Abscess, perirectal 566 Active Hira roman SLICING MACHINE OPERATOR/TENDER Abscess of anal and rectal regions Hypertriglyceridemia [...] Inactive Abdirahman sanchez MD URETHRITIS ICD-597.80 Inactive Godo melchor MD ABSCESS ICD-682.9 Inactive Good collier [...] , use sparingly for severe pain OXYCODONE-ACETAMINOPHEN 39942160723 No Longer A ctive Abdirahman Rios MD Active GLUCOPHAGE 500 MG ORAL TABS one by mouth 3 times a day METFORMIN HCL 97992971538 Active Kalpesh Dong MD Active IBUPROFEN 600 MG ORAL TABS 1 by mouth twice a day IBUPROFEN 24591906891 Active ERNIE Higuera Active TRAZODONE HCL 100 MG TAB 0.5 to 1 po qHS PRN Insomnia TRAZODONE HCL 73400133148 Active Abdirahman Rios MD Active CYMBALTA 30 MG CPEP 1 cap by mouth daily DULOXE CLEO HCL 37803272066 Active Abdirahman Rios MD Active EMLA 2.5-2.5 % EXT CREA apply to skin lesion q 6 hours, prn 2014 LIDOCAINE-PRILOCAINE 12982239444 No Longer Active Abdirahman Rios MD Active HYDROCODONE-ACETAMINOPHEN 5-325 MG TABS 1 po q6hr PRN pain HYDROCODONE-ACETAMINOPHEN 32758003811 Active Kathryn Calloway MA Active PERCOCET 10-325 MG ORAL TABS 1 every 4 hours as needed OXYCODONE-ACETAMINOPHEN 03578692457 No Longer Active Abdirahman Rios MD Active [id number] 50-325-40 MG ORAL CAPS 1-2 po TID CO N Headache [id number] 89931951786 Active Abdirahman Rios MD Active AUGMENTIN 875-125 MG TAB 1 tab by mouth twice daily with food 20 21/10/13 AMOXICILLIN-POT CLAVULANATE 44423921414 No Longer Active Ursula jasmina Frajalenl SLICING MACHINE OPERATOR/TENDER Active PROAIR HFA 108 (90 BASE) MCG/ACT AERS 2 puff q 4-6 hrs PRN 01/24 ALBUTEROL SULFATE 10309136886 No Longer Active Kalpesh Dong MD Active ALPRAZOLAM 0.5 MG TABS 1 po BID PRN Anxiety ALPRA ZOLAM 04781378359 Active Abdirahman Rios MD Active CYCLOBENZAPRINE HCL 10 MG TABS 1 tablet by mouth three times daily as needed for muscle spasm/pain CYCLOBENZAPRINE HCL 04288977842 Active Abdirahman Rios MD Active PREDNISONE 20 MG TAB 2 tabs daily for 3 days, 1 t ab daily for 3 days, 1/2 tab daily for 2 days PREDNISONE 70639805847 No Longer Active Abdirahman Rios MD Active KEFLEX 500 MG CAP 1 po qid CEPHALEXIN 676076481 20 No Longer Active Kalpesh Dong MD Active PERCOCET 5-325 MG TAB 1 every 6 hours as needed OXYCODONE-ACETAMINOPHEN 56112965813 No Longer Active Shola MCGILL Active LC-5 LIDOCAINE 5 % CREA apply 1 time daily to affected area 2013 LIDOCAINE (ANORECTAL) 78824845702 No Longer Active Hira garciaell SLICING MACHINE OPERATOR/TENDER Active HYDROCODONE-ACETAMINOPHEN 10-325 MG TABS 1 by mouth ev chaka 8 hours as needed for pain HYDROCODONE-ACETAMINOPHEN 39316109667 No Longer Active Jillina Frazell SLICING MACHINE OPERATOR/TENDER Active LORATADINE 10 MG TABS 1 tablet by mouth daily L ORATADINE 96985908957 No Longer Active Jillina Frazell SLICING MACHINE OPERATOR/TENDER Active DIFLUCAN 150 MG TAB 1 qODay x 2 doses FLUCONAZO LE 28651529590 No Longer Active Jillina Joyzell SLICING MACHINE OPERATOR/TENDER Active CYCLOBENZAPRINE HCL 10 MG TABS 1/2 - 1 tab PO tid PRN back p ain, muscle spasm CYCLOBENZAPRINE HCL 38457028420 No Longer Active Karen siri Frazell SLICING MACHINE OPERATOR/TENDER Active AUGMENTIN 875-125 MG TAB 1 tab by mouth twice daily with food 20 22/05/07 AMOXICILLIN-POT CLAVULANATE 68787761541 No Longer Active Loida Rios MD Active MOBIC 15 MG TABS 1 tab daily MELOXICAM 409119110 14 No Longer Active Abdirahman Rios MD Active PERCOCET 7.5-325 MG TABS 1 PO tid PRN pain OXYCODONE-ACETAMINOPHEN 12602949536 No Longer Active Abdirahman Rios MD Active LIDODERM 5 % PTCH One patch to painful area CO N. On for 12 hrs, off for 12 hrs. LIDOCAINE 42921902189 No Longer Active Abdirahman Rios MD Active PERCOCET 7.5-325 MG TABS 1 PO q 8 hrs PRN pain OXYCODONE-ACETAMINOPHEN 41715461206 No Longer Active Shola MCGILL Active HYDROCODONE-ACETAMINOPHEN 7.5-325 MG TABS 1 by mouth e very 6 hours as needed for pain HYDROCODONE-ACETAMINOPHEN 53178334765 No Longer Active Good Julian MD Active CLINDAMYCIN HCL 300 MG CAPS 1 po QID x 7 days CLINDAMYCIN HCL 79836217667 No Longer Active Abdirahman Rios MD Activ e BACTRIM DS 800-160 MG TABS 1 po BID x 7 days 5 SULFAMETHOXAZOLE-TRIMETHOPRIM 32477343790 No Longer Active Abdirahman Rios MD Active ENDOCET 10-325 MG TABS 1 q 6 hr prn OXYCODONE-ACETAMINOPHEN 35351102151 No Longer Active Abdirahman Rios MD Active IBUPROFEN 800 MG TABS 1 tid prn IBUPROFEN 418293 82041 No Longer Active Abdirahman Rios MD Active BACTRIM DS 800-160 MG TABS by mouth twice a day 11/05 SULFAMETHOXAZOLE-TRIMETHOPRIM 08701749664 No Longer Active Good Julian MD Active HYDROCODONE-ACETAMINOPHEN 7.5-325 MG TABS 1 four times a day as needed for pain HYDROCODONE-ACETAMINOPHEN 45452491020 No Longer Activ e Good Julian MD Active KEFLEX 500 MG CAP 1 tab po tid CEPHALEXIN 784936 08071 No Longer Active Matthewllsiri Moser APRN Active IBUPROFEN 800 MG TAB 1 pill three times daily as needed for pain IBUPROFEN 41459560816 No Longer Active Kalpesh Dong MD Active PROMETHAZINE-CODEINE 6.25-10 MG/5ML SYRP 1 tsp every 6 hrs prn c ough PROMETHAZINE-CODEINE 61007553998 No Longer Active Kalpesh Carr Active HYDROCODONE-ACETAMINOPHEN 5-325 MG TABS 1 tab by mouth every 6 hours as needed HYDROCODONE-ACETAMINOPHEN 48383238595 No Longer Activ e Shola MCGILL Active CEPHALEXIN 500 MG CAPS 1 PO bid x 7 days CEPHAL EXIN 39467698481 No Longer Active Shola MCGILL Active BACTRIM DS 800-160 MG TAB 1 tab by mouth twice daily 2 TRIMETHOPRIM-SULFAMETHOXAZOLE 80674453205 No Longer Active Kalpesh Dong MD Active HYDROCODONE-ACETAMINOPHEN 5-325 MG TABS 1 PO tid PRN pain 5 HYDROCODONE-ACETAMINOPHEN 26135704822 No Longer Active Abhinav Galvan MD Active IMPLANON 68 MG IMPL IMPLANTED IN LEFT ARM ETONO GESTREL 40334457807 No Longer Active Hira Moser APRN Active AMOXICILLIN 500 MG TABS 2 tabs PO bid x 10 d AM OXICILLIN 70505325497 No Longer Active Kalpesh Dong MD Active LEVAQUIN 500 MG TABS 1 PO q day x 7 days LEVOFL OXACIN 16748387120 No Longer Active Shola MCGILL Active AMITRIPTYLINE HCL 25 MG TAB 1 tab by mouth daily 60 minutes before bedtime AMITRIPTYLINE HCL 16343905186 No Longer Active Shola MCGILL Active LORTAB 5 5-500 MG TABS 1/2 to 1 tablet by mouth go ry 6 hours as needed for pain HYDROCODONE-ACETAMINOPHEN 75336383411 No Longer Active Shola MCGILL Active CEPHALEXIN 500 MG TABS Take one by mouth four times daily, morning, noon, early evening and bedtime. CEPHALEXIN 78611128970 No Long er Active Hira Moser APRN Active TYLENOL/CODEINE #3 300-30 MG TAB 1-2 po q6hr PRN Pain ACETAMINOPHEN-CODEINE 77004236270 No Longer Active Edilberto Marino DO Active PRISTIQ 50 MG [id number] 1 po qd DESVENLAFAXI NE SUCCINATE 93615060487 No Longer Active Edilberto Marino DO Active PENICILLIN V POTASSIUM 500 MG TAB 1 four times a day 2 PENICILLIN V POTASSIUM 78731783391 No Longer Active Edilberto Marino DO Active DOXYCYCLINE HYCLATE 100 MG CAPS Take one (1) tablet by mouth twice a day DOXYCYCLINE HYCLATE 62325091569 No Longer Active Ronnie Galvan MD Active HYDROCODONE-ACETAMINOPHEN 5-325 MG TABS 1 po q 6hr PRN Pain 2011 HYDROCODONE-ACETAMINOPHEN 64588149425 No Longer Active Rosari joan Perez RN Active BACTRIM DS 800-160 MG TAB 1 tab by mouth twice daily 2 TRIMETHOPRIM-SULFAMETHOXAZOLE 89983334971 No Longer Active Kalpesh Dong MD Active LORTAB 5 5-500 MG TABS 1/2 to 1 tablet by mouth go ry 4 hours as needed for pain HYDROCODONE-ACETAMINOPHEN 98624292172 No Longer Active Kalpesh Dong MD Active GENERESS FE 0.8-25 MG-MCG CHEW Take one by mouth daily NORETHIN-ETH ESTRADIOL-FE 12482509112 No Longer Active Kalpesh Dong MD Active HYDROCODONE-ACETAMINOPHEN 7.5-500 MG TABS 1-2 every 4 hours as needed HYDROCODONE-ACETAMINOPHEN 28750207482 No Longer Activ e Kalpesh Dong MD Active FERROUS SULFATE 325 (65 FE) MG TABS 1 tablet by mouth twice yung y FERROUS SULFATE 67399117389 No Longer Active Kalpesh Dong MD Active IBUPROFEN 600 MG TAB 1 po q6-8hr PRN IBUPROFEN 16438257574 No Longer Active Kalpesh Dong MD Active SPIRONOLACTONE 25 MG TAB 1 tablet by mouth daily 01/22 SPIRONOLACTONE 28778835092 No Longer Active Kalpesh Dong MD Acti ve HYDROCODONE-ACETAMINOPHEN 7.5-325 MG TABS 1 po QID PRN Pain 2011 HYDROCODONE-ACETAMINOPHEN 12412725490 No Longer Active Kalpesh Dong MD Active CLINDAMYCIN HCL 300 MG CAPS 1 po q6hr x 7 days CLINDAMYCIN HCL 38178824455 No Longer Active Edilberto Marino DO Active PREDNISONE 20 MG TAB 2 tabs daily for 4 days, 1 t ab daily for 4 days, 1/2 tab daily for 4 days PREDNISONE 86809136300 No Longer Active Edilberto Marino DO Active PERCOCET 5-325 MG TABS 1 tablet by mouth every 6 hours as ne eded for pain OXYCODONE-ACETAMINOPHEN 44869594079 No Longer Active Abdirahman Rios MD Active VITAMINS TABS Take one by mouth daily MV & MIN W/FE-FA TABS 71297672420 No Longer Active Abdriahman Rios MD Active LUIS 3-0.02 MG TABS 1 tablet by mouth daily as directed DROSPIRENONE-ETHINYL ESTRADIOL 52894999223 No Longer Active Abdirahman Rios MD Active LORATADINE 10 MG TABS 1 tablet by mouth daily L ORATADINE 11523992003 No Longer Active Kalpesh Dong MD Active HYDROCODONE-ACETAMINOPHEN 5-325 MG TABS 1 po q 6hr PRN Pain 2010 HYDROCODONE-ACETAMINOPHEN 52908014665 No Longer Active Edilberto Marino DO Active BACTRIM DS 800-160 MG TAB 1 tab by mouth twice daily 2 TRIMETHOPRIM-SULFAMETHOXAZOLE 37397721997 No Longer Active Abdirahman Rios MD Active 28-0.8 MG TABS Take one by mouth daily 09/20 VIT-FE FUMARATE-FA 27138091242 No Longer Active Abdirahman Rios MD Active CIPRO 500 MG TAB 1 tablet by mouth twice daily CIPROFLOXACIN HCL 60764121137 No Longer Active Abdirahman Rios MD Active BENADRYL 25 MG CAP 1 po q8hr PRN Congestion DIPHENHYDRAMINE HCL 80128877047 No Longer Active Abdirahman Rios MD Active ZOLOFT 50 MG TAB 1 po qd SERTRALINE HCL 855501 02361 No Longer Active Abdirahman Rios MD Active AMOXICILLIN 875 MG TABS 1 tab by mouth twice daily 201 08/09/13 AMOXICILLIN 79378853938 No Longer Active Abdirahman Rios MD Activ e AMOXICILLIN 875 MG TABS 1 tab by mouth twice daily 201 07/19/27 AMOXICILLIN 83355093389 No Longer Active Abdirahman Rios MD Activ e BACTRIM DS 800-160 MG TAB 2 tab by mouth twice daily 2 TRIMETHOPRIM-SULFAMETHOXAZOLE 04059375030 No Longer Active Abdirahman Rios MD Active KEFLEX 500 MG CAP 1 po tid x 10 days CEPHALEXIN 46428385519 No Longer Active Abdirahman Rios MD Active AMOXICILLIN 875 MG TABS 1 tab by mouth twice daily 201 07/18/07 AMOXICILLIN 03615240993 No Longer Active Abdirahman Rios MD Activ e BACTRIM DS 800-160 MG TAB 2 tab by mouth twice daily 2 BACTRIM DS 800-160 MG TAB TRIMETHOPRIM-SULFAMETHOXAZOLE Inactive ZOLOFT 50 MG TAB 1 po qd ZOLOFT 50 MG TAB 3129 41 SERTRALINE HCL Inactive BENADRYL 25 MG CAP 1 po q8hr PRN Congestion BENADRYL 25 MG CAP 7785319 DIPHENHYDRAMINE HCL Inactive 28-0.8 MG TABS Take one by mouth daily 09/20 28-0.8 MG TABS VIT-FE FUMARATE-FA Inactive HYDROCODONE-ACETAMINOPHEN 5-325 MG TABS 1 po q 6hr PRN Pain 2010 HYDROCODONE-ACETAMINOPHEN 5-325 MG TABS 799863 HYDROCODONE-ACETAMINOPHEN Inactive LORATADINE 10 MG TABS 1 tablet by mouth daily LORATADINE 10 MG TABS 216625 LORATADINE Inactive LUIS 3-0.02 MG TABS 1 tablet by mouth daily as directed LUIS 3-0.02 MG TABS DROSPIRENONE-ETHINYL ESTRADIOL Inactive VITAMINS TABS Take one by mouth daily VITAMINS TABS MV & MIN W/FE-FA TABS Inactive PERCOCET 5-325 MG TABS 1 tablet by mouth every 6 hours as ne eded for pain PERCOCET 5-325 MG TABS 5141523 OXYCODONE-ACETAMIN OPHEN Inactive PREDNISONE 20 MG TAB 2 tabs daily for 4 days, 1 t ab daily for 4 days, 1/2 tab daily for 4 days PREDNISONE 20 MG TAB 371868 PREDNISON E Inactive CLINDAMYCIN HCL 300 MG CAPS 1 po q6hr x 7 days CLINDAMYCIN HCL 300 MG CAPS 197701 CLINDAMYCIN HCL Inactive HYDROCODONE-ACETAMINOPHEN 7.5-325 MG TABS 1 po QID PRN Pain 2011 HYDROCODONE-ACETAMINOPHEN 7.5-325 MG TABS 273264 HYDROCODONE-ACETAMINOPHEN Inactive SPIRONOLACTONE 25 MG TAB 1 tablet by mouth daily 01/22 SPIRONOLACTONE 25 MG TAB 820925 SPIRONOLACTONE Inactive IBUPROFEN 600 MG TAB 1 po q6-8hr PRN IBUPROFEN 600 MG TAB 870581 IBUPROFEN Inactive FERROUS SULFATE 325 (65 FE) MG TABS 1 tablet by mouth twice yung y FERROUS SULFATE 325 (65 FE) MG TABS 150011 FERROUS SULF ATE Inactive HYDROCODONE-ACETAMINOPHEN 7.5-500 MG TABS 1-2 every 4 hours as needed HYDROCODONE-ACETAMINOPHEN 7.5-500 MG TABS HYDROCODONE-ACETAMINOPHEN Inactive GENERESS FE 0.8-25 MG-MCG CHEW Take one by mouth daily GENERESS FE 0.8-25 MG-MCG CHEW 9313612 NORETHIN-ETH ESTRADIOL-FE Inactive LORTAB 5 5-500 MG [...] PRN Pain 2011 HYDROCODONE-ACETAMINOPHEN 5-325 MG TABS 046160 HYDROCODONE-ACETAMINOPHEN Inactive DOXYCYCLINE HYCLATE 100 MG CAPS Take one (1) tablet by mouth twice a day DOXYCYCLINE HYCLATE 100 MG CAPS 8178303 DOXYCYCLINE HYCLATE Inactive PENICILLIN V POTASSIUM 500 MG TAB 1 four times a day 2 PENICILLIN V POTASSIUM 500 MG TAB 904368 PENICILLIN V POTASSIUM Siri ctive PRISTIQ 50 MG [id number] 1 po qd PRISTIQ 50 MG [id number] DESVENLAFAXINE SUCCINATE Inactive TYLENOL/CODEINE #3 300-30 MG TAB 1-2 po q6hr PRN Pain TYLENOL/CODEINE #3 300-30 MG TAB 578960 ACETAMINOPHEN-CODEINE Inact krishna CEPHALEXIN 500 MG TABS Take one by mouth four times daily, morning, noon, early evening and bedtime. CEPHALEXIN 500 MG TABS 035943 CEPHALEXIN Inactive LORTAB 5 5-500 MG TABS 1/2 to 1 tablet by mouth go ry 6 hours as needed for pain LORTAB 5 5-500 MG TABS HYDROCODONE-A CETAMINOPHEN Inactive AMITRIPTYLINE HCL 25 MG TAB 1 tab by mouth daily 60 minutes before bedtime AMITRIPTYLINE HCL 25 MG TAB 629068 AMITRIPTYLINE HCL Inactive AMOXICILLIN 500 MG TABS 2 tabs PO bid x 10 d 7 AMOXICILLIN 500 MG TABS 534913 AMOXICILLIN Inactive IMPLANON 68 MG IMPL IMPLANTED IN LEFT ARM IMPLANON 68 MG IMPL ETONOGESTREL Inactive HYDROCODONE-ACETAMINOPHEN 5-325 MG TABS 1 PO tid PRN pain 5 HYDROCODONE-ACETAMINOPHEN 5-325 MG TABS 065376 HYDROCODONE-ACETAMIN OPHEN Inactive BACTRIM DS 800-160 MG TAB 1 tab by mouth twice daily 2 BACTRIM DS 800-160 MG TAB TRIMETHOPRIM-SULFAMETHOXAZOLE Inac tive CEPHALEXIN 500 MG CAPS 1 PO bid x 7 days CEPHALEXIN 500 MG CAPS 928165 CEPHALEXIN Inactive HYDROCODONE-ACETAMINOPHEN 5-325 MG TABS 1 tab by mouth every 6 hours as needed HYDROCODONE-ACETAMINOPHEN 5-325 MG TABS 572986 HYDROCODONE-ACETAMINOPHEN Inactive PROMETHAZINE-CODEINE 6.25-10 MG/5ML SYRP 1 tsp every 6 hrs prn c ough PROMETHAZINE-CODEINE 6.25-10 MG/5ML SYRP 077995 PROMETH AZINE-CODEINE Inactive IBUPROFEN 800 MG TAB 1 pill three times daily as needed for pain IBUPROFEN 800 MG TAB IBUPROFEN Inactive KEFLEX 500 MG CAP 1 tab po tid KEFLEX 500 MG CAP 136705 CEPHALEXIN Inactive HYDROCODONE-ACETAMINOPHEN 7.5-325 MG TABS 1 four times a day as needed for pain HYDROCODONE-ACETAMINOPHEN 7.5-325 MG TABS 149285 HYDROCODONE-ACETAMINOPHEN Inactive BACTRIM DS 800-160 MG TABS by mouth twice a day 11/05 BACTRIM DS 800-160 MG TABS SULFAMETHOXAZOLE-TRIMETHOPRIM Inactive IBUPROFEN 800 MG TABS 1 tid prn IBUPROFEN 800 MG TABS 163359 IBUPROFEN Inactive ENDOCET 10-325 MG TABS 1 q 6 hr prn ENDOC ET 10-325 MG TABS 3027490 OXYCODONE-ACETAMINOPHEN Inactive HYDROCODONE-ACETAMINOPHEN 7.5-325 MG TABS 1 by mouth e very 6 hours as needed for pain HYDROCODONE-ACETAMINOPHEN 7.5-325 MG TABS 366247 HYDROCODONE-ACETAMINOPHEN Inactive PERCOCET 7.5-325 MG TABS 1 PO q 8 hrs PRN pain PERCOCET 7.5-325 MG TABS 2015361 OXYCODONE-ACETAMINOPHEN Inactive LIDODERM 5 % PTCH One patch to painful area CO N. On for 12 hrs, off for 12 hrs. LIDODERM 5 % PTCH 9927221 LIDOCAINE Inactiv e PERCOCET 7.5-325 MG TABS 1 PO tid PRN pain PERCOCET 7.5- 325 MG TABS 0424140 OXYCODONE-ACETAMINOPHEN Inactive MOBIC 15 MG TABS 1 tab daily MOBIC 15 MG TABS 15 2695 MELOXICAM Inactive CYCLOBENZAPRINE HCL 10 MG TABS 1/2 - 1 tab PO tid PRN back p ain, muscle spasm CYCLOBENZAPRINE HCL 10 MG TABS 099157 CYCLOBENZA JOSEPH HCL Inactive LORATADINE 10 MG TABS 1 tablet by mouth daily LORATADINE 10 MG TABS 418713 LORATADINE Inactive HYDROCODONE-ACETAMINOPHEN 10-325 MG TABS 1 by mouth ev chaka 8 hours as needed for pain HYDROCODONE-ACETAMINOPHEN 10-325 MG TABS 071481 HYDROCODONE-ACETAMINOPHEN Inactive LC-5 LIDOCAINE 5 % CREA apply 1 time daily to affected area 2013 LC-5 LIDOCAINE 5 % CREA LIDOCAINE (ANORECTAL) In active PERCOCET 5-325 MG TAB 1 every 6 hours as needed PERCOCET 5-325 MG TAB 5641662 OXYCODONE-ACETAMINOPHEN Inactive KEFLEX 500 MG CAP 1 po qid KEFLEX 500 MG CAP 30 9114 CEPHALEXIN Inactive PROAIR HFA 108 (90 BASE) MCG/ACT AERS 2 puff q 4-6 hrs PRN 01/24 PROAIR HFA 108 (90 BASE) MCG/ACT AERS ALBUTEROL SULFATE Inactive PERCOCET 10-325 MG ORAL TABS 1 every 4 hours as needed PERCOCET 10-325 MG ORAL TABS 1786735 OXYCODONE-ACETAMINOPHEN Inactiv e EMLA 2.5-2.5 % EXT CREA apply to skin lesion q 6 hours, prn 2014 EMLA 2.5-2.5 % EXT CREA 799573 LIDOCAINE-PRILOCAINE [place] ctive PERCOCET 10-325 MG TABS 1 tab by mouth every 6 hours , use sparingly for severe pain PERCOCET 10-325 MG TABS 3826352 OXYCODONE-ACETAMINOPHEN Inactive AMOXICILLIN 875 MG TABS 1 tab by mouth twice daily 201 07/18/07 AMOXICILLIN 875 MG TABS 130770 AMOXICILLIN Inactive KEFLEX 500 MG CAP 1 po tid x 10 days KEFLEX 500 MG CAP 975825 CEPHALEXIN Inactive AMOXICILLIN 875 MG TABS 1 tab by mouth twice daily 201 07/19/27 AMOXICILLIN 875 MG TABS 180308 AMOXICILLIN Inactive AMOXICILLIN 875 MG TABS 1 tab by mouth twice daily 201 08/09/13 AMOXICILLIN 875 MG TABS 180603 AMOXICILLIN Inactive CIPRO 500 MG TAB 1 tablet by mouth twice daily CIPRO 500 MG TAB 817714 CIPROFLOXACIN HCL Inactive BACTRIM DS 800-160 MG TAB 1 tab by mouth twice daily 2 BACTRIM DS 800-160 MG TAB TRIMETHOPRIM-SULFAMETHOXAZOLE Inac tive LEVAQUIN 500 MG TABS 1 PO q day x 7 days LEVAQUIN 500 MG TABS 557454 LEVOFLOXACIN Inactive CLINDAMYCIN HCL 300 MG CAPS 1 po QID x 7 days CLINDAMYCIN HCL 300 MG CAPS 231221 CLINDAMYCIN HCL Inactive AUGMENTIN 875-125 MG TAB 1 tab by mouth twice daily with food 20 22/05/07 AUGMENTIN 875-125 MG TAB 350304 AMOXICILLIN-POT CLAVULA [place] Inactive DIFLUCAN 150 MG TAB 1 qODay x 2 doses DIFLUCAN 150 MG TAB 377890 FLUCONAZOLE Inactive PREDNISONE 20 MG TAB 2 tabs daily for 3 days, 1 t ab daily for 3 days, 1/2 tab daily for 2 days PREDNISONE 20 MG TAB 939053 PREDNISON E Inactive AUGMENTIN 875-125 MG TAB 1 tab by mouth twice daily with food 20 21/10/13 AUGMENTIN 875-125 MG TAB 148691 AMOXICILLIN-POT CLAVULA [place] Inactive Advance Directives Directive Description Start Date PERMISSION TO SHARE Immunizations Vaccine Administration Date Value Standard Alf cription Seasonal influenza vaccine, injectable, containing preservative, for > 3 years old (Afluria, FluLaval, Fluzone, Fluvirin, Fluarix, Agriflu(>= 18 yo)) Fluzone (>3 yrs.) [[id number]] Influenza, seasonal, inject able Seasonal influenza vaccine, injectable, preservative free, for > 3 years old (Afluria, FluLaval, Fluzone, Fluvirin, Fluarix, Agriflu(>= 18 yo)) Fluzone preservative free (>3 yrs.) [[id number]] Influenza, seasonal, injectable, preservative free Seasonal influenza vaccine, injectable, containing preservative, for > 3 years old (Afluria, FluLaval, Fluzone, Fluvirin, Fluarix, Agriflu(>= 18 yo)) Fluzone (>3 yrs.) [[id number]] Influenza, seasonal, inject able Seasonal influenza vaccine, injectable, containing preservative, for > 3 years old (Afluria, FluLaval, Fluzone, Fluvirin, Fluarix, Agriflu(>= 18 yo)) Fluzone (>3 yrs.) [[id number]] Influenza, seasonal, inject able dT (Diphtheria and Tetanus) booster given Histor ica Td(adult) unspecified formulation Vital Signs Date Name Value Unit Range Description blood pressure, diastolic - 8462-4 86 mm[Hg] [...] Panel - Chemistry sodium, serum 142 mmol/L 443-199 7193/05/12 potassium, serum 4.8 mmol/L 3.5-5.2 chloride, serum [...] Panel - Chemistry cholesterol, serum 165 mg/dL 547-970 1216/05/12 triglyceride, serum, fasting 524 mg/dL 30-200 HDL [...] negative Encounters Code Encounter Date Provider Facility CPT-91684 Level 3 Est. Patient 14:29:53 CDT Abhinav Galvan MD [facility] CPT-20932 Level 2 Est. Patient 16:33:01 CDT Kalpesh goins MD [facility] CPT-51477 Level 4 Est. Patient 16:44:56 CDT Abdirahman Rios MD [facility] CPT-44766 Level 2 Est. Patient 07:49:32 CDT Kalpesh goins MD [facility] CPT-56155 Level 3 New Patient 15:47:11 NUCLEAR REACTOR ENGINEER Bj huber MD [facility] CPT-28819 Level 4 Est. Patient 14:37:38 NUCLEAR REACTOR ENGINEER Abdirahman Rios MD [facility] CPT-79406 Level 2 Est. Patient 13:32:17 NUCLEAR REACTOR ENGINEER Kalpesh goins MD [facility] CPT-82680 Level 3 Est. Patient 17:32:57 NUCLEAR REACTOR ENGINEER Edilberto Thao Rigo te DO [facility] CPT-79872 Level 3 Est. Patient 17:22:33 NUCLEAR REACTOR ENGINEER Edilberto Keesha Rigo te DO [facility] CPT-55866 Level 2 Est. Patient 16:57:09 NUCLEAR REACTOR ENGINEER Kalpesh goins MD [facility] CPT-71488 Level 3 Est. Patient 14:03:08 NUCLEAR REACTOR ENGINEER Abdirahman Rios MD [facility] CPT-43306 Level 3 Est. Patient 18:12:34 CDT Shola Wright [facility] CPT-02214 Level 3 Est. Patient 19:34:46 CDT Shola Thao [facility] CPT-96272 Level 3 Est. Patient 14:19:37 CDT Abdirahman Rios MD [facility] CPT-82803 Level 3 Est. Patient 14:11:58 CDT Kalpesh goins MD [facility] CPT-85819 Level 3 Est. Patient 16:50:00 CDT Michelle MERCADO [facility] CPT-92060 Level 3 Est. Patient 17:11:32 NUCLEAR REACTOR ENGINEER Brandie bates MD PhD [facility] CPT-45924 Level 3 Est. Patient 16:31:47 NUCLEAR REACTOR ENGINEER Shola Wright [facility] CPT-61901 Level 3 Est. Patient 17:51:10 NUCLEAR REACTOR ENGINEER Abhinav Galvan MD [facility] CPT-09738 Level 4 Est. Patient 12:54:56 NUCLEAR REACTOR ENGINEER Kalpesh goins MD [facility] CPT-75515 Level 4 Est. Patient 12:53:56 NUCLEAR REACTOR ENGINEER Kalpesh goins MD [facility] CPT-30263 Level 3 Est. Patient 17:56:58 CDT Shola Wright [facility] CPT-28547 Level 3 Est. Patient 14:26:20 CDT Janak MCGILL [facility] CPT-37302 Level 3 Est. Patient 09:38:41 CDT Shola Wright [facility] CPT-85139 Level 3 Est. Patient 14:45:26 CDT Edilberto tiwari [facility] CPT-37850 Level 3 Est. Patient 10:51:33 CDT Hira muniz [facility] CPT-68702 Level 3 Est. Patient 11:57:55 NUCLEAR REACTOR ENGINEER Shola Thao Adriana [facility] CPT-15104 Level 3 Est. Patient 09:53:33 NUCLEAR REACTOR ENGINEER Edilberto tiwari [facility] CPT-38776 Level 3 Est. 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 Patient 15:10:02 CDT Janak MCGILL [facility] CPT-15933 Level 3 Est. Patient 15:20:20 CDT Theo dennis MD [facility] CPT-43741 Level 2 Est. Patient 14:08:57 CDT Klapesh goins MD [facility] CPT-24493 Level 3 Est. Patient 13:56:19 CDT Abdirahman Rios MD [facility] CPT-11558 Level 3 Est. Patient 13:59:37 CDT Abdirahman Rios MD [facility] CPT-79571 Level 2 Est. Patient 14:44:59 CDT Kalpesh goins MD [facility]-34435 Level 3 Est. Patient 06:06:23 CDT Edilberto tiwari [facility] CPT-18679 Level 3 Est. Patient 15:23:54 CDT Abdirahman Rios MD [facility] CPT-74734 Level 3 Est. Patient 15:43:49 CDT Abdirahman Rios MD [facility] CPT-38532 Level 3 Est. 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 Patient 08:13:35 NUCLEAR REACTOR ENGINEER Abdirahman Rios MD [facility] CPT-01801 Level 2 Est. Patient 09:36:42 NUCLEAR REACTOR ENGINEER Abdirahman Rios MD [facility] CPT-05839 Level 3 Est. Patient 10:56:43 CDT Abdirahman Rios MD [facility] CPT-45931 Level 3 Est. Patient 18:24:52 CDT Abdirahman Rios MD [facility] CPT-58801 Level 3 Est. Patient 13:27:22 CDT Abdirahman Rios MD [facility] Procedures Code Procedure Name Date Entry Date Standard Desc ription CPT-17490 Postop F/U Visit 15:27:43 CDT CPT-46492 Postop F/U Visit 14:40:59 CDT CPT-21543 Postop F/U Visit 15:02:46 CDT CPT-55037 Postop F/U Visit 11:29:00 [employer] CPT-J0696 Rocephin 1000 mg (Ceftriaxone) 17:22:33 [employer]UC[employer]OR [employer]INE[employer] CPT-21203 Postop F/U Visit 18:41:07 [employer]UCLEAR [employer]OR [employer]INEER CPT-28601 Postop F/U Visit 08:19:08 [employer]UCLE[employer] CPT-83564 Immunization Single Admin 16:41:53 CDT 2013 CPT-17321 Fluzone Quadrivalent Intramuscular Suspe nsion 0.5 ML 16:41:53 CDT CPT-OV Office Visit 16:39:18 CDT CPT-OV Office Visit 16:16:36 CDT CPT-OV Office Visit 15:34:48 CDT CPT-99913 Postop F/U Visit 14:50:12 CDT CPT-77738 Postop F/U Visit 14:41:10 CDT CPT-48732 Venipuncture Draw Fee 11:38:04 [employer]UCLE[employer] CPT-34190 Postop F/U Visit 19:02:59 [employer]UCLEAR [employer]ACTOR ENGINEER CPT-71070 Postop F/U Visit 12:04:54 NUCLEAR [employer]OR ENGINEER CPT-64829 Administration single or combination vac cine inc oral 15:56:43 CDT CPT-94512 Influenza split virus > age 3 15:56:43 CDT CPT-08988 Hand comp min 3V 14:25:19 CDT CPT-97181 Postop F/U Visit 21:40:51 CDT CPT-10053 Postop F/U Visit 10:58:43 CDT CPT-88162 Administration single or combination vac cine inc oral 12:33:54 NUCLEAR REACTOR ENGINEER CPT-03020 Influenza Preservative Free split virus >age 3 12:33:54 NUCLEAR [employer]ACTOR ENGINEER CPT-44271 Administration single or combination vac cine inc oral 09:30:51 CDT CPT-89493 Influenza split virus > age 3 09:30:51 CDT CPT-52078 Postop F/U Visit 15:14:53 CDT CPT-90430 Postop F/U Visit 13:50:14 CDT CPT-15706 Postop F/U Visit 13:34:52 CDT CPT-OV Office Visit 16:55:03 CDT CPT-79879 [place] of cervix w bx ECC 13:32:50 CDT 10/19 CPT-J1885 Toradol 60 mg (Ketorolac) 15:31:59 CDT 2011 CPT-J1885 Toradol 60 mg (Ketorolac) 15:23:54 CDT 2011 CPT-68547 Visit 11:34:37 [employer]UCLE[employer]ACTOR ENG[employer]ER CPT-63967 Visit 10:52:39 NUCLEAR [employer]ACTOR ENGINEER CPT-33847 Visit 10:12:02 NUCLEAR [employer]ACTOR ENGINEER CPT-34247 Visit 11:22:43 NUCLEAR REACTOR ENGINEER CPT-89231 Visit 11:24:12 NUCLEAR [employer]ACTOR ENG[employer]ER CPT-68811 Visit 10:47:05 NUCLEAR REACTOR ENGINEER CPT-OV Office Visit 10:26:16 NUCLEAR REACTOR ENGINEER CPT-OV Office Visit 15:34:31 NUCLEAR [employer]ACTOR ENGINEER CPT-35340 Visit 10:42:08 NUCLEAR REACTOR ENGINEER CPT-94984 Visit 10:52:45 NUCLEAR REACTOR ENGINEER CPT-000 Give Appropriate Flu Vaccine 16:56:41 CDT 2 CPT-67583 Administration single or combination vac cine inc oral 10:33:21 CDT CPT-74060 Influenza split virus > age 3 10:33:21 CDT CPT-91682 Visit 13:23:09 CDT CPT-14059 Visit 18:24:52 CDT CPT-05850 Sono OB comp > 14 weeks 12:07:49 CDT 04/07
--- OUTSIDE RECORDS SUMMARY | 2020-01-18 15:47 | XMS REPORT | Clinical Summary ---
Author Author Admin, Jeri Rashid Organization [facility] Address Unknown Phone Unavailable Allergies, Adverse Reactions, [...] BACK PAIN, LUMBAR, CHRONIC 724.2 Correction Brigitte Ikehorn Lumbago Dysmenorrhea, severe 625.3 Resolved Kalpesh bernal [...] NEC Abscess, perirectal 566 Active Hira roman [employer] Abscess of anal and rectal regions Hypertriglyceridemia [...] Contact dermatitis due to poison marilee ICD-692.6 Jose M Rios MD Back strain ICD-847.9 Jose M [...] , use sparingly for severe pain OXYCODONE-ACETAMINOPHEN 94407398506 No Longer A ctive Abdirahman Rios MD Active GLUCOPHAGE 500 MG ORAL TABS one by mouth 3 times a day METFORMIN HCL 89186434535 Active Kalpesh Dong MD Active IBUPROFEN 600 MG ORAL TABS 1 by mouth twice a day IBUPROFEN 95377675101 Active ERNIE Higuera Active TRAZODONE HCL 100 MG TAB 0.5 to 1 po qHS PRN Insomnia TRAZODONE HCL 87756109352 Active Abdirahman Rios MD Active CYMBALTA 30 MG CPEP 1 cap by mouth daily DULOXE CLEO HCL 20934565913 Active Abdirahman Rios MD Active EMLA 2.5-2.5 % EXT CREA apply to skin lesion q 6 hours, prn 2014 LIDOCAINE-PRILOCAINE 78590172742 No Longer Active Abdirahman Rios MD Active HYDROCODONE-ACETAMINOPHEN 5-325 MG TABS 1 po q6hr PRN pain HYDROCODONE-ACETAMINOPHEN 30219151928 Active Abdirahman Rios MD Active PERCOCET 10-325 MG ORAL TABS 1 every 4 hours as needed OXYCODONE-ACETAMINOPHEN 89157716028 No Longer Active Abdirahman Rios MD Active [id number] 50-325-40 MG ORAL CAPS 1-2 po TID NE N Headache [id number] 58086197554 Active Abdirahman Rios MD Active AUGMENTIN 875-125 MG TAB 1 tab by mouth twice daily with food 20 21/10/13 AMOXICILLIN-POT CLAVULANATE 50561275598 No Longer Active Ursula jasmina Frajalenl [employer] Active PROAIR HFA 108 (90 BASE) MCG/ACT AERS 2 puff q 4-6 hrs PRN 01/24 ALBUTEROL SULFATE 42838824602 No Longer Active Kalpesh Dong MD Active ALPRAZOLAM 0.5 MG TABS 1 po BID PRN Anxiety ALPRA ZOLAM 07791798870 Active Abdirahman Rios MD Active CYCLOBENZAPRINE HCL 10 MG TABS 1 tablet by mouth three times daily as needed for muscle spasm/pain CYCLOBENZAPRINE HCL 30970657551 Active Abdirahman Rios MD Active PREDNISONE 20 MG TAB 2 tabs daily for 3 days, 1 t ab daily for 3 days, 1/2 tab daily for 2 days PREDNISONE 17495095193 No Longer Active Abdirahman Rios MD Active KEFLEX 500 MG CAP 1 po qid CEPHALEXIN 783159361 20 No Longer Active Kalpesh Dong MD Active PERCOCET 5-325 MG TAB 1 every 6 hours as needed OXYCODONE-ACETAMINOPHEN 46858288344 No Longer Active Shola MCGILL Active LC-5 LIDOCAINE 5 % CREA apply 1 time daily to affected area 2013 LIDOCAINE (ANORECTAL) 88985147392 No Longer Active Hira garciaell [employer] Active HYDROCODONE-ACETAMINOPHEN 10-325 MG TABS 1 by mouth ev chaka 8 hours as needed for pain HYDROCODONE-ACETAMINOPHEN 54628537110 No Longer Active Jillina Frazell [employer] PAINTER Active LORATADINE 10 MG TABS 1 tablet by mouth daily L ORATADINE 22430214247 No Longer Active Jillina Frazell [employer]AGE [employer] PAINTER Active DIFLUCAN 150 MG TAB 1 qODay x 2 doses FLUCONAZO LE 85954753718 No Longer Active Jillina Joyzell [employer] PAINTER Active CYCLOBENZAPRINE HCL 10 MG TABS 1/2 - 1 tab PO tid PRN back p ain, muscle spasm CYCLOBENZAPRINE HCL 23130534813 No Longer Active Karen herson Frazell [employer]AGE [employer] PAINTER Active AUGMENTIN 875-125 MG TAB 1 tab by mouth twice daily with food 20 22/05/07 AMOXICILLIN-POT CLAVULANATE 49298611600 No Longer Active Loida Rios MD Active MOBIC 15 MG TABS 1 tab daily MELOXICAM 620795805 14 No Longer Active Abdirahman Rios MD Active PERCOCET 7.5-325 MG TABS 1 PO tid PRN pain OXYCODONE-ACETAMINOPHEN 14012756152 No Longer Active Abdirahman Rios MD Active LIDODERM 5 % PTCH One patch to painful area NE N. On for 12 hrs, off for 12 hrs. LIDOCAINE 76119526077 No Longer Active Abdirahman Rios MD Active PERCOCET 7.5-325 MG TABS 1 PO q 8 hrs PRN pain OXYCODONE-ACETAMINOPHEN 95750190900 No Longer Active Shola MCGILL Active HYDROCODONE-ACETAMINOPHEN 7.5-325 MG TABS 1 by mouth e very 6 hours as needed for pain HYDROCODONE-ACETAMINOPHEN 12745179059 No Longer Active Good Julian MD Active CLINDAMYCIN HCL 300 MG CAPS 1 po QID x 7 days CLINDAMYCIN HCL 44500810886 No Longer Active Abdirahman Rios MD Activ e BACTRIM DS 800-160 MG TABS 1 po BID x 7 days 5 SULFAMETHOXAZOLE-TRIMETHOPRIM 23104485805 No Longer Active Abdirahman Rios MD Active ENDOCET 10-325 MG TABS 1 q 6 hr prn OXYCODONE-ACETAMINOPHEN 94786677838 No Longer Active Abdirahman Rios MD Active IBUPROFEN 800 MG TABS 1 tid prn IBUPROFEN 646076 80556 No Longer Active Abdirahman Rios MD Active BACTRIM DS 800-160 MG TABS by mouth twice a day 11/05 SULFAMETHOXAZOLE-TRIMETHOPRIM 88212071851 No Longer Active Good Julian MD Active HYDROCODONE-ACETAMINOPHEN 7.5-325 MG TABS 1 four times a day as needed for pain HYDROCODONE-ACETAMINOPHEN 54036415583 No Longer Activ e Good Julian MD Active KEFLEX 500 MG CAP 1 tab po tid CEPHALEXIN 889797 86841 No Longer Active Matthewllherson Moser APRN Active IBUPROFEN 800 MG TAB 1 pill three times daily as needed for pain IBUPROFEN 15065619318 No Longer Active Kalpesh Dong MD Active PROMETHAZINE-CODEINE 6.25-10 MG/5ML SYRP 1 tsp every 6 hrs prn c ough PROMETHAZINE-CODEINE 78195740934 No Longer Active Kalpesh Carr Active HYDROCODONE-ACETAMINOPHEN 5-325 MG TABS 1 tab by mouth every 6 hours as needed HYDROCODONE-ACETAMINOPHEN 57945857191 No Longer Activ e Shola MCGILL Active CEPHALEXIN 500 MG CAPS 1 PO bid x 7 days CEPHAL EXIN 40481870118 No Longer Active Shola MCGILL Active BACTRIM DS 800-160 MG TAB 1 tab by mouth twice daily 2 TRIMETHOPRIM-SULFAMETHOXAZOLE 16972438559 No Longer Active Kalpesh Dong MD Active HYDROCODONE-ACETAMINOPHEN 5-325 MG TABS 1 PO tid PRN pain 5 HYDROCODONE-ACETAMINOPHEN 89600641294 No Longer Active Abhinav Galvan MD Active IMPLANON 68 MG IMPL IMPLANTED IN LEFT ARM ETONO GESTREL 51535695197 No Longer Active Hira Moser APRN Active AMOXICILLIN 500 MG TABS 2 tabs PO bid x 10 d AM OXICILLIN 36155940159 No Longer Active Kalpesh Dong MD Active LEVAQUIN 500 MG TABS 1 PO q day x 7 days LEVOFL OXACIN 41243761173 No Longer Active Shola MCGILL Active AMITRIPTYLINE HCL 25 MG TAB 1 tab by mouth daily 60 minutes before bedtime AMITRIPTYLINE HCL 70394941466 No Longer Active Shola MCGILL Active LORTAB 5 5-500 MG TABS 1/2 to 1 tablet by mouth go ry 6 hours as needed for pain HYDROCODONE-ACETAMINOPHEN 45594322926 No Longer Active Shola MCGILL Active CEPHALEXIN 500 MG TABS Take one by mouth four times daily, morning, noon, early evening and bedtime. CEPHALEXIN 01115476881 No Long er Active Hira Moser APRN Active TYLENOL/CODEINE #3 300-30 MG TAB 1-2 po q6hr PRN Pain ACETAMINOPHEN-CODEINE 20239290124 No Longer Active Edilberto Marino DO Active PRISTIQ 50 MG [id number] 1 po qd DESVENLAFAXI NE SUCCINATE 52065340942 No Longer Active Edilberto Marino DO Active PENICILLIN V POTASSIUM 500 MG TAB 1 four times a day 2 PENICILLIN V POTASSIUM 08295538175 No Longer Active Edilberto Marino DO Active DOXYCYCLINE HYCLATE 100 MG CAPS Take one (1) tablet by mouth twice a day DOXYCYCLINE HYCLATE 32204544084 No Longer Active Ronnie Galvan MD Active HYDROCODONE-ACETAMINOPHEN 5-325 MG TABS 1 po q 6hr PRN Pain 2011 HYDROCODONE-ACETAMINOPHEN 91757861366 No Longer Active Rosari joan Perez RN Active BACTRIM DS 800-160 MG TAB 1 tab by mouth twice daily 2 TRIMETHOPRIM-SULFAMETHOXAZOLE 99213286018 No Longer Active Kalpesh Dong MD Active LORTAB 5 5-500 MG TABS 1/2 to 1 tablet by mouth go ry 4 hours as needed for pain HYDROCODONE-ACETAMINOPHEN 31156737137 No Longer Active Kalpesh Dong MD Active GENERESS FE 0.8-25 MG-MCG CHEW Take one by mouth daily NORETHIN-ETH ESTRADIOL-FE 79946001869 No Longer Active Kalpesh Dong MD Active HYDROCODONE-ACETAMINOPHEN 7.5-500 MG TABS 1-2 every 4 hours as needed HYDROCODONE-ACETAMINOPHEN 14001998409 No Longer Activ e Kalpesh Dong MD Active FERROUS SULFATE 325 (65 FE) MG TABS 1 tablet by mouth twice yung y FERROUS SULFATE 77557767133 No Longer Active Kalpesh Dong MD Active IBUPROFEN 600 MG TAB 1 po q6-8hr PRN IBUPROFEN 49407916736 No Longer Active Kalpesh Dong MD Active SPIRONOLACTONE 25 MG TAB 1 tablet by mouth daily 01/22 SPIRONOLACTONE 04607285940 No Longer Active Kalpesh Dong MD Acti ve HYDROCODONE-ACETAMINOPHEN 7.5-325 MG TABS 1 po QID PRN Pain 2011 HYDROCODONE-ACETAMINOPHEN 75127744680 No Longer Active Kalpesh Dong MD Active CLINDAMYCIN HCL 300 MG CAPS 1 po q6hr x 7 days CLINDAMYCIN HCL 13400575222 No Longer Active Edilberto Marino DO Active PREDNISONE 20 MG TAB 2 tabs daily for 4 days, 1 t ab daily for 4 days, 1/2 tab daily for 4 days PREDNISONE 69978629194 No Longer Active Edilberto Marino DO Active PERCOCET 5-325 MG TABS 1 tablet by mouth every 6 hours as ne eded for pain OXYCODONE-ACETAMINOPHEN 17955253609 No Longer Active Abdirahman Rios MD Active VITAMINS TABS Take one by mouth daily MV & MIN W/FE-FA TABS 47583697097 No Longer Active Abdirahman Rios MD Active LUIS 3-0.02 MG TABS 1 tablet by mouth daily as directed DROSPIRENONE-ETHINYL ESTRADIOL 67172185459 No Longer Active Abdirahman Rios MD Active LORATADINE 10 MG TABS 1 tablet by mouth daily L ORATADINE 21547812609 No Longer Active Kalpesh Dong MD Active HYDROCODONE-ACETAMINOPHEN 5-325 MG TABS 1 po q 6hr PRN Pain 2010 HYDROCODONE-ACETAMINOPHEN 72195261782 No Longer Active Edilberto Marino DO Active BACTRIM DS 800-160 MG TAB 1 tab by mouth twice daily 2 TRIMETHOPRIM-SULFAMETHOXAZOLE 97358502785 No Longer Active Abdirahman Rios MD Active 28-0.8 MG TABS Take one by mouth daily 09/20 VIT-FE FUMARATE-FA 68744301722 No Longer Active Abdirahman Rios MD Active CIPRO 500 MG TAB 1 tablet by mouth twice daily CIPROFLOXACIN HCL 99242664004 No Longer Active Abdirahman Rios MD Active BENADRYL 25 MG CAP 1 po q8hr PRN Congestion DIPHENHYDRAMINE HCL 12500091882 No Longer Active Abdirahman Rios MD Active ZOLOFT 50 MG TAB 1 po qd SERTRALINE HCL 968652 81824 No Longer Active Abdirahman Rios MD Active AMOXICILLIN 875 MG TABS 1 tab by mouth twice daily 201 08/09/13 AMOXICILLIN 58000597529 No Longer Active Abdirahman Rios MD Activ e AMOXICILLIN 875 MG TABS 1 tab by mouth twice daily 201 07/19/27 AMOXICILLIN 52186103585 No Longer Active Abdirahman Rios MD Activ e BACTRIM DS 800-160 MG TAB 2 tab by mouth twice daily 2 TRIMETHOPRIM-SULFAMETHOXAZOLE 87777114936 No Longer Active Abdirahman Rios MD Active KEFLEX 500 MG CAP 1 po tid x 10 days CEPHALEXIN 16977885932 No Longer Active Abdirahman Rios MD Active AMOXICILLIN 875 MG TABS 1 tab by mouth twice daily 201 07/18/07 AMOXICILLIN 68208179924 No Longer Active Abdirahman Rios MD Activ e BACTRIM DS 800-160 MG TAB 2 tab by mouth twice daily 2 BACTRIM DS 800-160 MG TAB TRIMETHOPRIM-SULFAMETHOXAZOLE Inactive ZOLOFT 50 MG TAB 1 po qd ZOLOFT 50 MG TAB 3129 41 SERTRALINE HCL Inactive BENADRYL 25 MG CAP 1 po q8hr PRN Congestion BENADRYL 25 MG CAP 8205502 DIPHENHYDRAMINE HCL Inactive 28-0.8 MG TABS Take one by mouth daily 09/20 28-0.8 MG TABS VIT-FE FUMARATE-FA Inactive HYDROCODONE-ACETAMINOPHEN 5-325 MG TABS 1 po q 6hr PRN Pain 2010 HYDROCODONE-ACETAMINOPHEN 5-325 MG TABS 934801 HYDROCODONE-ACETAMINOPHEN Inactive LORATADINE 10 MG TABS 1 tablet by mouth daily LORATADINE 10 MG TABS 556635 LORATADINE Inactive LUIS 3-0.02 MG TABS 1 tablet by mouth daily as directed LUIS 3-0.02 MG TABS DROSPIRENONE-ETHINYL ESTRADIOL Inactive VITAMINS TABS Take one by mouth daily VITAMINS TABS MV & MIN W/FE-FA TABS Inactive PERCOCET 5-325 MG TABS 1 tablet by mouth every 6 hours as ne eded for pain PERCOCET 5-325 MG TABS 2372495 OXYCODONE-ACETAMIN OPHEN Inactive PREDNISONE 20 MG TAB 2 tabs daily for 4 days, 1 t ab daily for 4 days, 1/2 tab daily for 4 days PREDNISONE 20 MG TAB 392555 PREDNISON E Inactive CLINDAMYCIN HCL 300 MG CAPS 1 po q6hr x 7 days CLINDAMYCIN HCL 300 MG CAPS 993006 CLINDAMYCIN HCL Inactive HYDROCODONE-ACETAMINOPHEN 7.5-325 MG TABS 1 po QID PRN Pain 2011 HYDROCODONE-ACETAMINOPHEN 7.5-325 MG TABS 044783 HYDROCODONE-ACETAMINOPHEN Inactive SPIRONOLACTONE 25 MG TAB 1 tablet by mouth daily 01/22 SPIRONOLACTONE 25 MG TAB 903123 SPIRONOLACTONE Inactive IBUPROFEN 600 MG TAB 1 po q6-8hr PRN IBUPROFEN 600 MG TAB 876568 IBUPROFEN Inactive FERROUS SULFATE 325 (65 FE) MG TABS 1 tablet by mouth twice yung y FERROUS SULFATE 325 (65 FE) MG TABS 802084 FERROUS SULF ATE Inactive HYDROCODONE-ACETAMINOPHEN 7.5-500 MG TABS 1-2 every 4 hours as needed HYDROCODONE-ACETAMINOPHEN 7.5-500 MG TABS HYDROCODONE-ACETAMINOPHEN Inactive GENERESS FE 0.8-25 MG-MCG CHEW Take one by mouth daily GENERESS FE 0.8-25 MG-MCG CHEW 8114662 NORETHIN-ETH ESTRADIOL-FE Inactive LORTAB 5 5-500 MG [...] PRN Pain 2011 HYDROCODONE-ACETAMINOPHEN 5-325 MG TABS 310221 HYDROCODONE-ACETAMINOPHEN Inactive DOXYCYCLINE HYCLATE 100 MG CAPS Take one (1) tablet by mouth twice a day DOXYCYCLINE HYCLATE 100 MG CAPS 4024128 DOXYCYCLINE HYCLATE Inactive PENICILLIN V POTASSIUM 500 MG TAB 1 four times a day 2 PENICILLIN V POTASSIUM 500 MG TAB 874007 PENICILLIN V POTASSIUM [place] ctive PRISTIQ 50 MG [id number] 1 po qd PRISTIQ 50 MG [id number] DESVENLAFAXINE SUCCINATE Inactive TYLENOL/CODEINE #3 300-30 MG TAB 1-2 po q6hr PRN Pain TYLENOL/CODEINE #3 300-30 MG TAB 906098 ACETAMINOPHEN-CODEINE Inact krishna CEPHALEXIN 500 MG TABS Take one by mouth four times daily, morning, noon, early evening and bedtime. CEPHALEXIN 500 MG TABS 551876 CEPHALEXIN Inactive LORTAB 5 5-500 MG TABS 1/2 to 1 tablet by mouth go ry 6 hours as needed for pain LORTAB 5 5-500 MG TABS HYDROCODONE-A CETAMINOPHEN Inactive AMITRIPTYLINE HCL 25 MG TAB 1 tab by mouth daily 60 minutes before bedtime AMITRIPTYLINE HCL 25 MG TAB 855415 AMITRIPTYLINE HCL Inactive AMOXICILLIN 500 MG TABS 2 tabs PO bid x 10 d 7 AMOXICILLIN 500 MG TABS 481292 AMOXICILLIN Inactive IMPLANON 68 MG IMPL IMPLANTED IN LEFT ARM IMPLANON 68 MG IMPL ETONOGESTREL Inactive HYDROCODONE-ACETAMINOPHEN 5-325 MG TABS 1 PO tid PRN pain 5 HYDROCODONE-ACETAMINOPHEN 5-325 MG TABS 107637 HYDROCODONE-ACETAMIN OPHEN Inactive BACTRIM DS 800-160 MG TAB 1 tab by mouth twice daily 2 BACTRIM DS 800-160 MG TAB TRIMETHOPRIM-SULFAMETHOXAZOLE Inac tive CEPHALEXIN 500 MG CAPS 1 PO bid x 7 days CEPHALEXIN 500 MG CAPS 599310 CEPHALEXIN Inactive HYDROCODONE-ACETAMINOPHEN 5-325 MG TABS 1 tab by mouth every 6 hours as needed HYDROCODONE-ACETAMINOPHEN 5-325 MG TABS 896641 HYDROCODONE-ACETAMINOPHEN Inactive PROMETHAZINE-CODEINE 6.25-10 MG/5ML SYRP 1 tsp every 6 hrs prn c ough PROMETHAZINE-CODEINE 6.25-10 MG/5ML SYRP 800654 PROMETH AZINE-CODEINE Inactive IBUPROFEN 800 MG TAB 1 pill three times daily as needed for pain IBUPROFEN 800 MG TAB IBUPROFEN Inactive KEFLEX 500 MG CAP 1 tab po tid KEFLEX 500 MG CAP 306523 CEPHALEXIN Inactive HYDROCODONE-ACETAMINOPHEN 7.5-325 MG TABS 1 four times a day as needed for pain HYDROCODONE-ACETAMINOPHEN 7.5-325 MG TABS 343723 HYDROCODONE-ACETAMINOPHEN Inactive BACTRIM DS 800-160 MG TABS by mouth twice a day 11/05 BACTRIM DS 800-160 MG TABS SULFAMETHOXAZOLE-TRIMETHOPRIM Inactive IBUPROFEN 800 MG TABS 1 tid prn IBUPROFEN 800 MG TABS 632562 IBUPROFEN Inactive ENDOCET 10-325 MG TABS 1 q 6 hr prn ENDOC ET 10-325 MG TABS 0456509 OXYCODONE-ACETAMINOPHEN Inactive HYDROCODONE-ACETAMINOPHEN 7.5-325 MG TABS 1 by mouth e very 6 hours as needed for pain HYDROCODONE-ACETAMINOPHEN 7.5-325 MG TABS 272296 HYDROCODONE-ACETAMINOPHEN Inactive PERCOCET 7.5-325 MG TABS 1 PO q 8 hrs PRN pain PERCOCET 7.5-325 MG TABS 0576405 OXYCODONE-ACETAMINOPHEN Inactive LIDODERM 5 % PTCH One patch to painful area NE N. On for 12 hrs, off for 12 hrs. LIDODERM 5 % PTCH 8985489 LIDOCAINE Inactiv e PERCOCET 7.5-325 MG TABS 1 PO tid PRN pain PERCOCET 7.5- 325 MG TABS 1041245 OXYCODONE-ACETAMINOPHEN Inactive MOBIC 15 MG TABS 1 tab daily MOBIC 15 MG TABS 15 2695 MELOXICAM Inactive CYCLOBENZAPRINE HCL 10 MG TABS 1/2 - 1 tab PO tid PRN back p ain, muscle spasm CYCLOBENZAPRINE HCL 10 MG TABS 253260 CYCLOBENZA JOSEPH HCL Inactive LORATADINE 10 MG TABS 1 tablet by mouth daily LORATADINE 10 MG TABS 616789 LORATADINE Inactive HYDROCODONE-ACETAMINOPHEN 10-325 MG TABS 1 by mouth ev chaka 8 hours as needed for pain HYDROCODONE-ACETAMINOPHEN 10-325 MG TABS 711722 HYDROCODONE-ACETAMINOPHEN Inactive LC-5 LIDOCAINE 5 % CREA apply 1 time daily to affected area 2013 LC-5 LIDOCAINE 5 % CREA LIDOCAINE (ANORECTAL) In active PERCOCET 5-325 MG TAB 1 every 6 hours as needed PERCOCET 5-325 MG TAB 5984696 OXYCODONE-ACETAMINOPHEN Inactive KEFLEX 500 MG CAP 1 po qid KEFLEX 500 MG CAP 30 9114 CEPHALEXIN Inactive PROAIR HFA 108 (90 BASE) MCG/ACT AERS 2 puff q 4-6 hrs PRN 01/24 PROAIR HFA 108 (90 BASE) MCG/ACT AERS ALBUTEROL SULFATE Inactive PERCOCET 10-325 MG ORAL TABS 1 every 4 hours as needed PERCOCET 10-325 MG ORAL TABS 4313970 OXYCODONE-ACETAMINOPHEN Inactiv e EMLA 2.5-2.5 % EXT CREA apply to skin lesion q 6 hours, prn 2014 EMLA 2.5-2.5 % EXT CREA 754063 LIDOCAINE-PRILOCAINE [place] ctive PERCOCET 10-325 MG TABS 1 tab by mouth every 6 hours , use sparingly for severe pain PERCOCET 10-325 MG TABS 1193932 OXYCODONE-ACETAMINOPHEN Inactive AMOXICILLIN 875 MG TABS 1 tab by mouth twice daily 201 07/18/07 AMOXICILLIN 875 MG TABS 929458 AMOXICILLIN Inactive KEFLEX 500 MG CAP 1 po tid x 10 days KEFLEX 500 MG CAP 463480 CEPHALEXIN Inactive AMOXICILLIN 875 MG TABS 1 tab by mouth twice daily 201 07/19/27 AMOXICILLIN 875 MG TABS 450498 AMOXICILLIN Inactive AMOXICILLIN 875 MG TABS 1 tab by mouth twice daily 201 08/09/13 AMOXICILLIN 875 MG TABS 647941 AMOXICILLIN Inactive CIPRO 500 MG TAB 1 tablet by mouth twice daily CIPRO 500 MG TAB 395811 CIPROFLOXACIN HCL Inactive BACTRIM DS 800-160 MG TAB 1 tab by mouth twice daily 2 BACTRIM DS 800-160 MG TAB TRIMETHOPRIM-SULFAMETHOXAZOLE Inac tive LEVAQUIN 500 MG TABS 1 PO q day x 7 days LEVAQUIN 500 MG TABS 240913 LEVOFLOXACIN Inactive CLINDAMYCIN HCL 300 MG CAPS 1 po QID x 7 days CLINDAMYCIN HCL 300 MG CAPS 617824 CLINDAMYCIN HCL Inactive AUGMENTIN 875-125 MG TAB 1 tab by mouth twice daily with food 20 22/05/07 AUGMENTIN 875-125 MG TAB 181216 AMOXICILLIN-POT CLAVULA [place] Inactive DIFLUCAN 150 MG TAB 1 qODay x 2 doses DIFLUCAN 150 MG TAB 581822 FLUCONAZOLE Inactive PREDNISONE 20 MG TAB 2 tabs daily for 3 days, 1 t ab daily for 3 days, 1/2 tab daily for 2 days PREDNISONE 20 MG TAB 386988 PREDNISON E Inactive AUGMENTIN 875-125 MG TAB 1 tab by mouth twice daily with food 20 21/10/13 AUGMENTIN 875-125 MG TAB 729939 AMOXICILLIN-POT CLAVULA [place] Inactive Advance Directives Directive Description Start Date PERMISSION TO SHARE Immunizations Vaccine Administration Date Value Standard Alf cription Seasonal influenza vaccine, injectable, containing preservative, for > 3 years old (Afluria, FluLaval, Fluzone, Fluvirin, Fluarix, Agriflu(>= 18 yo)) Fluzone (>3 yrs.) [OPH124] Influenza, seasonal, inject able Seasonal influenza vaccine, injectable, preservative free, for > 3 years old (Afluria, FluLaval, Fluzone, Fluvirin, Fluarix, Agriflu(>= 18 yo)) Fluzone preservative free (>3 yrs.) [PAQ571] Influenza, seasonal, injectable, preservative free Seasonal influenza vaccine, injectable, containing preservative, for > 3 years old (Afluria, FluLaval, Fluzone, Fluvirin, Fluarix, Agriflu(>= 18 yo)) Fluzone (>3 yrs.) [VCQ208] Influenza, seasonal, inject able Seasonal influenza vaccine, injectable, containing preservative, for > 3 years old (Afluria, FluLaval, Fluzone, Fluvirin, Fluarix, Agriflu(>= 18 yo)) Fluzone (>3 yrs.) [[id number]] Influenza, seasonal, inject able dT (Diphtheria and [...] pressure, diastolic - 8462-4 81 mm[Hg] BP ribiero blood pressure, systolic - 8480-6 126 mm[Hg] [...] Panel - Chemistry sodium, serum 142 mmol/L 990-728 4275/05/12 potassium, serum 4.8 mmol/L 3.5-5.2 chloride, serum [...] Panel - Chemistry cholesterol, serum 165 mg/dL 579-698 3800/05/12 triglyceride, serum, fasting 524 mg/dL 30-200 HDL [...] negative Encounters Code Encounter Date Provider Facility CPT-63110 Level 2 Est. Patient 16:33:01 CDT Kalpesh goins MD [facility] CPT-76373 Level 4 Est. Patient 16:44:56 CDT Abdirahman Rios MD [facility] CPT-04827 Level 2 Est. Patient 07:49:32 CDT Kalpesh goins MD [facility] CPT-50545 Level 3 New Patient 15:47:11 TAPE CUTTER Bj huber MD [facility] CPT-78567 Level 4 Est. Patient 14:37:38 TAPE CUTTER Abdirahman Rios MD [facility] CPT-75814 Level 2 Est. Patient 13:32:17 TAPE CUTTER Kalpesh goins MD [facility] CPT-19949 Level 3 Est. Patient 17:32:57 TAPE CUTTER Edilberto tiwari DO [facility] CPT-54394 Level 3 Est. Patient 17:22:33 TAPE CUTTER Edilberto tiwari DO [facility] CPT-25038 Level 2 Est. Patient 16:57:09 TAPE CUTTER Kalpesh goins MD [facility] CPT-48541 Level 3 Est. Patient 14:03:08 TAPE CUTTER Abdirahman Rios MD [facility] CPT-18625 Level 3 Est. Patient 18:12:34 CDT Shola Wright [facility] CPT-16153 Level 3 Est. Patient 19:34:46 CDT Shola Wright [facility] CPT-15255 Level 3 Est. Patient 14:19:37 CDT Abdirahman Rios MD [facility] CPT-68823 Level 3 Est. Patient 14:11:58 CDT Kalpesh goins MD [facility] CPT-43556 Level 3 Est. Patient 16:50:00 [facility] Level 3 Est. Patient 17:11:32 TAPE CUTTER Brandie bates MD, PhD [facility] CPT-73727 Level 3 Est. Patient 16:31:47 TAPE CUTTER Shola Wright [facility] CPT-85902 Level 3 Est. Patient 17:51:10 TAPE CUTTER Abhinav Galvan MD [facility] CPT-16667 Level 4 Est. Patient 12:54:56 TAPE CUTTER Kalpesh goins MD [facility] CPT-25639 Level 4 Est. Patient 12:53:56 TAPE CUTTER Kalpesh goins MD [facility] CPT-85892 Level 3 Est. Patient 17:56:58 CDT Shola Wright [facility] CPT-95502 Level 3 Est. Patient 14:26:20 CDT Janak butcher [facility] CPT-83844 Level 3 Est. Patient 09:38:41 CDT Shola MCGILL [facility] CPT-57377 Level 3 Est. Patient 14:45:26 CDT Edilberto tiwari [facility] CPT-00962 Level 3 Est. Patient 10:51:33 [facility] Level 3 Est. Patient 11:57:55 TAPE CUTTER Shola MCGILL [facility] CPT-27337 Level 3 Est. Patient 09:53:33 TAPE CUTTER Edilberto tiwari [facility] CPT-45501 Level 3 Est. Patient 14:42:54 TAPE CUTTER Abhinav Galvan MD [facility]-86113 Level 3 Est. Patient 15:10:02 CDT Janak Stevenamira butcher [facility] CPT-51511 Level 3 Est. Patient 15:20:20 CDT Theo dennis MD [facility] CPT-67970 Level 2 Est. Patient 14:08:57 CDT Kalpesh goins MD [facility]-92631 Level 3 Est. Patient 13:56:19 CDT Abdirahman Rios MD [facility] CPT-83363 Level 3 Est. Patient 13:59:37 CDT Abdirahman Rios MD [facility] CPT-36454 Level 2 Est. Patient 14:44:59 CDT Kalpesh goins MD [facility] CPT-64160 Level 3 Est. Patient 06:06:23 CDT Edilberto tiwari [facility] CPT-99431 Level 3 Est. Patient 15:23:54 CDT Abdirahman Rios MD [facility] CPT-19388 Level 3 Est. Patient 15:43:49 CDT Abdirahman Rios MD [facility] CPT-28496 Level 3 Est. Patient 12:46:47 TAPE CUTTER Abdirahman Rios MD [facility] CPT-51975 Level 3 Est. Patient 08:13:35 TAPE CUTTER Abdirahman Rios MD [facility] CPT-95157 Level 2 Est. Patient 09:36:42 TAPE CUTTER Abdirahman Rios MD [facility] CPT-01260 Level 3 Est. Patient 10:56:43 CDT Abdirahman Rios MD [facility] CPT-34384 Level 3 Est. Patient 18:24:52 CDT Abdirahman Rios MD [facility] CPT-30674 Level 3 Est. Patient 13:27:22 CDT Abdirahman Rios MD [facility] Procedures Code Procedure Name Date Entry Date Standard Desc ription CPT-12836 Postop F/U Visit 15:27:43 CDT CPT-20364 Postop F/U Visit 14:40:59 CDT CPT-88484 Postop F/U Visit 15:02:46 CDT CPT-77183 Postop F/U Visit 11:29:00 TAPE CUTTER CPT-J0696 Rocephin 1000 mg (Ceftriaxone) 17:22:33 TAPE CUTTER CPT-84384 Postop F/U Visit 18:41:07 TAPE CUTTER CPT-36490 Postop F/U Visit 08:19:08 TAPE CUTTER CPT-75218 Immunization Single Admin 16:41:53 CDT 2013 CPT-46944 Fluzone Quadrivalent Intramuscular Suspe nsion 0.5 ML 16:41:53 CDT CPT-OV Office Visit 16:39:18 CDT CPT-OV Office Visit 16:16:36 CDT CPT-OV Office Visit 15:34:48 CDT CPT-22627 Postop F/U Visit 14:50:12 CDT CPT-19708 Postop F/U Visit 14:41:10 CDT CPT-52348 Venipuncture Draw Fee 11:38:04 TAPE CUTTER CPT-70739 Postop F/U Visit 19:02:59 TAPE CUTTER CPT-17863 Postop F/U Visit 12:04:54 TAPE CUTTER CPT-13043 Administration single or combination vac cine inc oral 15:56:43 CDT CPT-61632 Influenza split virus > age 3 15:56:43 CDT CPT-06001 Hand comp min 3V 14:25:19 CDT CPT-04425 Postop F/U Visit 21:40:51 CDT CPT-55579 Postop F/U Visit 10:58:43 CDT CPT-01924 Administration single or combination vac cine inc oral 12:33:54 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 CPT-95481 Influenza Preservative Free split virus >age 3 12:33:54 TAPE CUTTER CPT-46776 Administration single or combination vac cine inc oral 09:30:51 CDT CPT-27793 Influenza split virus > age 3 09:30:51 CDT CPT-31772 Postop F/U Visit 15:14:53 CDT CPT-44739 Postop F/U Visit 13:50:14 CDT CPT-02402 Postop F/U Visit 13:34:52 CDT CPT-OV Office Visit 16:55:03 CDT CPT-09828 Hubbard of cervix w bx ECC 13:32:50 CDT 10/19 CPT-J1885 Toradol 60 mg (Ketorolac) 15:31:59 CDT 2011 CPT-J1885 Toradol 60 mg (Ketorolac) 15:23:54 CDT 2011 CPT-39542 Visit 11:34:37 TAPE CUTTER CPT-97243 Visit 10:52:39 TAPE CUTTER CPT-06464 Visit 10:12:02 TAPE CUTTER CPT-20833 Visit 11:22:43 TAPE CUTTER CPT-79623 Visit 11:24:12 TAPE CUTTER CPT-02951 Visit 10:47:05 TAPE CUTTER CPT-OV Office Visit 10:26:16 TAPE CUTTER CPT-OV Office Visit 15:34:31 TAPE CUTTER CPT-41000 Visit 10:42:08 TAPE CUTTER CPT-46209 Visit 10:52:45 TAPE CUTTER CPT-000 Give Appropriate Flu Vaccine 16:56:41 CDT 2 CPT-13855 Administration single or combination vac cine inc oral 10:33:21 CDT CPT-22688 Influenza split virus > age 3 10:33:21 CDT CPT-76421 Visit 13:23:09 CDT CPT-43576 Visit 18:24:52 CDT CPT-99839 Sono OB comp > 14 weeks 12:07:49 CDT 04/07
--- OUTSIDE RECORDS SUMMARY | 2020-01-18 15:48 | XMS REPORT | Clinical Summary ---
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 Abscess of anal and rectal regions Hypertriglyceridemia [...] Abdirahman Rios MD Impetigo ICD-684 Inactive Abdirahman Riso MD 08/24 AFTERCARE FOLLOW SURGERY SKIN&SUBCUT TISSUE NEC ICD-V58.77 Inactive Abdirahman Rios MD Medication List Medication Instructions Start Date Stop Date Generic Name NDC Status Provider Patient Instruction IBUPROFEN 600 MG ORAL TABS 1 by mouth twice a day IBUPROFEN [id number] Active ERNIE Higuera Active PERCOCET 10-325 MG TABS 1 tab by mouth every 6 hours , use sparingly for severe pain OXYCODONE-ACETAMINOPHEN 55492524592 Active ERNIE Higuera Active TRAZODONE HCL 100 MG TAB 0.5 to 1 po qHS PRN Insomnia TRAZODONE HCL 36288794805 Active Abdirahman Rios MD Active CYMBALTA 30 MG CPEP 1 cap by mouth daily DULOXE CLEO HCL 94517312679 Active Abdirahman Rios MD Active EMLA 2.5-2.5 % EXT CREA apply to skin lesion q 6 hours, prn 2014 LIDOCAINE-PRILOCAINE 14156132723 No Longer Active Abdirahman Rios MD Active HYDROCODONE-ACETAMINOPHEN 5-325 MG TABS 1 po q6hr PRN pain HYDROCODONE-ACETAMINOPHEN 91002924240 Active Abdirahman Rios MD Active PERCOCET 10-325 MG ORAL TABS 1 every 4 hours as needed OXYCODONE-ACETAMINOPHEN 68715719440 No Longer Active Abdirahman Rios MD Active [id number] 50-325-40 MG ORAL CAPS 1-2 po TID PA N Headache [id number] 52405625235 Active Abdirahman Rios MD Active AUGMENTIN 875-125 MG TAB 1 tab by mouth twice daily with food 20 21/10/13 AMOXICILLIN-POT CLAVULANATE 58479309381 No Longer Active Ursula jasmina Frazell GLASS INSTALLER TECHNICIAN Active PROAIR HFA 108 (90 BASE) MCG/ACT AERS 2 puff q 4-6 hrs PRN 01/24 ALBUTEROL SULFATE 31840782307 No Longer Active Kalpesh Dong MD Active ALPRAZOLAM 0.5 MG TABS 1 po BID PRN Anxiety ALPRA ZOLAM 94006402806 Active Abdirahman Rios MD Active CYCLOBENZAPRINE HCL 10 MG TABS 1 tablet by mouth three times daily as needed for muscle spasm/pain CYCLOBENZAPRINE HCL 09672994568 Active Abdirahman Rios MD Active PREDNISONE 20 MG TAB 2 tabs daily for 3 days, 1 t ab daily for 3 days, 1/2 tab daily for 2 days PREDNISONE 95516284639 No Longer Active Abdirahman Rios MD Active KEFLEX 500 MG CAP 1 po qid CEPHALEXIN 306573045 20 No Longer Active Kalpesh Dong MD Active PERCOCET 5-325 MG TAB 1 every 6 hours as needed OXYCODONE-ACETAMINOPHEN 07337894034 No Longer Active Shola MCGILL Active LC-5 LIDOCAINE 5 % CREA apply 1 time daily to affected area 2013 LIDOCAINE (ANORECTAL) 05446409783 No Longer Active Hira muniz APRN Active HYDROCODONE-ACETAMINOPHEN 10-325 MG TABS 1 by mouth ev chaka 8 hours as needed for pain HYDROCODONE-ACETAMINOPHEN 89756313664 No Longer Active Hira Moser APRN Active LORATADINE 10 MG TABS 1 tablet by mouth daily L ORATADINE 70793167942 No Longer Active Matthewllsiri Moser GLASS INSTALLER TECHNICIAN Active DIFLUCAN 150 MG TAB 1 qODay x 2 doses FLUCONAZO LE 75322310441 No Longer Active Hira Moser GLASS INSTALLER TECHNICIAN Active CYCLOBENZAPRINE HCL 10 MG TABS 1/2 - 1 tab PO tid PRN back p ain, muscle spasm CYCLOBENZAPRINE HCL 97757998741 No Longer Active Karen siri Frazell GLASS INSTALLER TECHNICIAN Active AUGMENTIN 875-125 MG TAB 1 tab by mouth twice daily with food 20 22/05/07 AMOXICILLIN-POT CLAVULANATE 87687964772 No Longer Active Loida Rios MD Active MOBIC 15 MG TABS 1 tab daily MELOXICAM 029783912 14 No Longer Active Abdirahman Rios MD Active PERCOCET 7.5-325 MG TABS 1 PO tid PRN pain OXYCODONE-ACETAMINOPHEN 44940893146 No Longer Active Abdirahman Rios MD Active LIDODERM 5 % PTCH One patch to painful area PA N. On for 12 hrs, off for 12 hrs. LIDOCAINE 08011037441 No Longer Active Abdirahman Rios MD Active PERCOCET 7.5-325 MG TABS 1 PO q 8 hrs PRN pain OXYCODONE-ACETAMINOPHEN 80628368568 No Longer Active Shola MCGILL Active HYDROCODONE-ACETAMINOPHEN 7.5-325 MG TABS 1 by mouth e very 6 hours as needed for pain HYDROCODONE-ACETAMINOPHEN 40404716920 No Longer Active Good Julian MD Active CLINDAMYCIN HCL 300 MG CAPS 1 po QID x 7 days CLINDAMYCIN HCL 03468318945 No Longer Active Abdirahman Rios MD Activ e BACTRIM DS 800-160 MG TABS 1 po BID x 7 days 5 SULFAMETHOXAZOLE-TRIMETHOPRIM 54197232748 No Longer Active Abdirahman Rios MD Active ENDOCET 10-325 MG TABS 1 q 6 hr prn OXYCODONE-ACETAMINOPHEN 72247522138 No Longer Active Abdirahman Rios MD Active IBUPROFEN 800 MG TABS 1 tid prn IBUPROFEN 461048 74713 No Longer Active Abdirahman Rios MD Active BACTRIM DS 800-160 MG TABS by mouth twice a day 11/05 SULFAMETHOXAZOLE-TRIMETHOPRIM 06970132426 No Longer Active Good Julian MD Active HYDROCODONE-ACETAMINOPHEN 7.5-325 MG TABS 1 four times a day as needed for pain HYDROCODONE-ACETAMINOPHEN 55727680212 No Longer Activ e Good Julian MD Active KEFLEX 500 MG CAP 1 tab po tid CEPHALEXIN 035283 82899 No Longer Active Hira Moser APRN Active IBUPROFEN 800 MG TAB 1 pill three times daily as needed for pain IBUPROFEN 55085796541 No Longer Active Kalpesh Dong MD Active PROMETHAZINE-CODEINE 6.25-10 MG/5ML SYRP 1 tsp every 6 hrs prn c ough PROMETHAZINE-CODEINE 17526493184 No Longer Active Kalpesh Carr Active HYDROCODONE-ACETAMINOPHEN 5-325 MG TABS 1 tab by mouth every 6 hours as needed HYDROCODONE-ACETAMINOPHEN 11799557750 No Longer Activ e Shola MCGILL Active CEPHALEXIN 500 MG CAPS 1 PO bid x 7 days CEPHAL EXIN 42410235227 No Longer Active Shola MCGILL Active BACTRIM DS 800-160 MG TAB 1 tab by mouth twice daily 2 TRIMETHOPRIM-SULFAMETHOXAZOLE 92316594487 No Longer Active Kalpesh Dong MD Active HYDROCODONE-ACETAMINOPHEN 5-325 MG TABS 1 PO tid PRN pain 5 HYDROCODONE-ACETAMINOPHEN 73784531034 No Longer Active Abhinav Galvan MD Active IMPLANON 68 MG IMPL IMPLANTED IN LEFT ARM ETONO GESTREL 06261728516 No Longer Active Hira Moser APRN Active AMOXICILLIN 500 MG TABS 2 tabs PO bid x 10 d AM OXICILLIN 03187845501 No Longer Active Kalpesh Dong MD Active LEVAQUIN 500 MG TABS 1 PO q day x 7 days LEVOFL OXACIN 63175443079 No Longer Active Shola MCGILL Active AMITRIPTYLINE HCL 25 MG TAB 1 tab by mouth daily 60 minutes before bedtime AMITRIPTYLINE HCL 31930974188 No Longer Active Shola MCGILL Active LORTAB 5 5-500 MG TABS 1/2 to 1 tablet by mouth go ry 6 hours as needed for pain HYDROCODONE-ACETAMINOPHEN 38488455662 No Longer Active Shola MCGILL Active CEPHALEXIN 500 MG TABS Take one by mouth four times daily, morning, noon, early evening and bedtime. CEPHALEXIN 32029211560 No Long er Active Hira Moser GLASS INSTALLER TECHNICIAN Active TYLENOL/CODEINE #3 300-30 MG TAB 1-2 po q6hr PRN Pain ACETAMINOPHEN-CODEINE 16459143004 No Longer Active Edilberto Marino DO Active PRISTIQ 50 MG EL96H-YLE 1 po qd DESVENLAFAXI NE SUCCINATE 92469339904 No Longer Active Edilberto Marino DO Active PENICILLIN V POTASSIUM 500 MG TAB 1 four times a day 2 PENICILLIN V POTASSIUM 23751741103 No Longer Active Edilberto Marino DO Active DOXYCYCLINE HYCLATE 100 MG CAPS Take one (1) tablet by mouth twice a day DOXYCYCLINE HYCLATE 40564690721 No Longer Active Ronnie Galvan MD Active HYDROCODONE-ACETAMINOPHEN 5-325 MG TABS 1 po q 6hr PRN Pain 2011 HYDROCODONE-ACETAMINOPHEN 87292116860 No Longer Active Rosari joan Perez RN Active BACTRIM DS 800-160 MG TAB 1 tab by mouth twice daily 2 TRIMETHOPRIM-SULFAMETHOXAZOLE 05148593834 No Longer Active Kalpesh Dong MD Active LORTAB 5 5-500 MG TABS 1/2 to 1 tablet by mouth go ry 4 hours as needed for pain HYDROCODONE-ACETAMINOPHEN 92793397076 No Longer Active Kalpesh Dong MD Active GENERESS FE 0.8-25 MG-MCG CHEW Take one by mouth daily NORETHIN-ETH ESTRADIOL-FE 86710552900 No Longer Active Kalpesh Dong MD Active HYDROCODONE-ACETAMINOPHEN 7.5-500 MG TABS 1-2 every 4 hours as needed HYDROCODONE-ACETAMINOPHEN 75641520797 No Longer Activ e Kalpesh Dong MD Active FERROUS SULFATE 325 (65 FE) MG TABS 1 tablet by mouth twice yung y FERROUS SULFATE 45047267383 No Longer Active Kalpesh Dong MD Active IBUPROFEN 600 MG TAB 1 po q6-8hr PRN IBUPROFEN 84199531121 No Longer Active Kalpesh Dong MD Active SPIRONOLACTONE 25 MG TAB 1 tablet by mouth daily 01/22 SPIRONOLACTONE 52885495959 No Longer Active Kalpesh Dong MD Acti ve HYDROCODONE-ACETAMINOPHEN 7.5-325 MG TABS 1 po QID PRN Pain 2011 HYDROCODONE-ACETAMINOPHEN 59711593429 No Longer Active Kalpesh Dong MD Active CLINDAMYCIN HCL 300 MG CAPS 1 po q6hr x 7 days CLINDAMYCIN HCL 51393580740 No Longer Active Edilberto Marino DO Active PREDNISONE 20 MG TAB 2 tabs daily for 4 days, 1 t ab daily for 4 days, 1/2 tab daily for 4 days PREDNISONE 12403723907 No Longer Active Edilberto Marino DO Active PERCOCET 5-325 MG TABS 1 tablet by mouth every 6 hours as ne eded for pain OXYCODONE-ACETAMINOPHEN 21091325033 No Longer Active Abdirahman Rios MD Active VITAMINS TABS Take one by mouth daily MV & MIN W/FE-FA TABS 66356095949 No Longer Active Abdirahman Rios MD Active LUIS 3-0.02 MG TABS 1 tablet by mouth daily as directed DROSPIRENONE-ETHINYL ESTRADIOL 76025772630 No Longer Active Abdirahman Rios MD Active LORATADINE 10 MG TABS 1 tablet by mouth daily L ORATADINE 02601388267 No Longer Active Kalpesh Dong MD Active HYDROCODONE-ACETAMINOPHEN 5-325 MG TABS 1 po q 6hr PRN Pain 2010 HYDROCODONE-ACETAMINOPHEN 15046749883 No Longer Active Edilberto Marino DO Active BACTRIM DS 800-160 MG TAB 1 tab by mouth twice daily 2 TRIMETHOPRIM-SULFAMETHOXAZOLE 66876316648 No Longer Active Abdirahman Rios MD Active 28-0.8 MG TABS Take one by mouth daily 09/20 VIT-FE FUMARATE-FA 50711188227 No Longer Active Abdirahman Rios MD Active CIPRO 500 MG TAB 1 tablet by mouth twice daily CIPROFLOXACIN HCL 10983862258 No Longer Active Abdirahman Rios MD Active BENADRYL 25 MG CAP 1 po q8hr PRN Congestion DIPHENHYDRAMINE HCL 93205049204 No Longer Active Abdirahman Rios MD Active ZOLOFT 50 MG TAB 1 po qd SERTRALINE HCL 451929 74827 No Longer Active Abdirahman Rios MD Active AMOXICILLIN 875 MG TABS 1 tab by mouth twice daily 201 08/09/13 AMOXICILLIN 13360211081 No Longer Active Abdirahman Rios MD Activ e AMOXICILLIN 875 MG TABS 1 tab by mouth twice daily 201 07/19/27 AMOXICILLIN 08197354732 No Longer Active Abdirahman Rios MD Activ e BACTRIM DS 800-160 MG TAB 2 tab by mouth twice daily 2 TRIMETHOPRIM-SULFAMETHOXAZOLE 59272668920 No Longer Active Abdirahman Rios MD Active KEFLEX 500 MG CAP 1 po tid x 10 days CEPHALEXIN 59545152020 No Longer Active Abdirahman Rios MD Active AMOXICILLIN 875 MG TABS 1 tab by mouth twice daily 201 07/18/07 AMOXICILLIN 27305934681 No Longer Active Abdirahman Rios MD Activ e BACTRIM DS 800-160 MG TAB 2 tab by mouth twice daily 2 BACTRIM DS 800-160 MG TAB TRIMETHOPRIM-SULFAMETHOXAZOLE Inactive ZOLOFT 50 MG TAB 1 po qd ZOLOFT 50 MG TAB 3129 41 SERTRALINE HCL Inactive BENADRYL 25 MG CAP 1 po q8hr PRN Congestion BENADRYL 25 MG CAP 6196975 DIPHENHYDRAMINE HCL Inactive 28-0.8 MG TABS Take one by mouth daily 09/20 28-0.8 MG TABS VIT-FE FUMARATE-FA Inactive HYDROCODONE-ACETAMINOPHEN 5-325 MG TABS 1 po q 6hr PRN Pain 2010 HYDROCODONE-ACETAMINOPHEN 5-325 MG TABS 698504 HYDROCODONE-ACETAMINOPHEN Inactive LORATADINE 10 MG TABS 1 tablet by mouth daily LORATADINE 10 MG TABS 659792 LORATADINE Inactive LUIS 3-0.02 MG TABS 1 tablet by mouth daily as directed LUIS 3-0.02 MG TABS DROSPIRENONE-ETHINYL ESTRADIOL Inactive VITAMINS TABS Take one by mouth daily VITAMINS TABS MV & MIN W/FE-FA TABS Inactive PERCOCET 5-325 MG TABS 1 tablet by mouth every 6 hours as ne eded for pain PERCOCET 5-325 MG TABS 7098517 OXYCODONE-ACETAMIN OPHEN Inactive PREDNISONE 20 MG TAB 2 tabs daily for 4 days, 1 t ab daily for 4 days, 1/2 tab daily for 4 days PREDNISONE 20 MG TAB 473097 PREDNISON E Inactive CLINDAMYCIN HCL 300 MG CAPS 1 po q6hr x 7 days CLINDAMYCIN HCL 300 MG CAPS 609912 CLINDAMYCIN HCL Inactive HYDROCODONE-ACETAMINOPHEN 7.5-325 MG TABS 1 po QID PRN Pain 2011 HYDROCODONE-ACETAMINOPHEN 7.5-325 MG TABS 868976 HYDROCODONE-ACETAMINOPHEN Inactive SPIRONOLACTONE 25 MG TAB 1 tablet by mouth daily 01/22 SPIRONOLACTONE 25 MG TAB 333990 SPIRONOLACTONE Inactive IBUPROFEN 600 MG TAB 1 po q6-8hr PRN IBUPROFEN 600 MG TAB 221385 IBUPROFEN Inactive FERROUS SULFATE 325 (65 FE) MG TABS 1 tablet by mouth twice yung y FERROUS SULFATE 325 (65 FE) MG TABS 737857 FERROUS SULF ATE Inactive HYDROCODONE-ACETAMINOPHEN 7.5-500 MG TABS 1-2 every 4 hours as needed HYDROCODONE-ACETAMINOPHEN 7.5-500 MG TABS HYDROCODONE-ACETAMINOPHEN Inactive GENERESS FE 0.8-25 MG-MCG CHEW Take one by mouth daily GENERESS FE 0.8-25 MG-MCG CHEW [id number] NORETHIN-ETH ESTRADIOL-FE Inactive LORTAB 5 5-500 MG [...] PRN Pain 2011 HYDROCODONE-ACETAMINOPHEN 5-325 MG TABS 246948 HYDROCODONE-ACETAMINOPHEN Inactive DOXYCYCLINE HYCLATE 100 MG CAPS Take one (1) tablet by mouth twice a day DOXYCYCLINE HYCLATE 100 MG CAPS 850895 DOXYCYCLINE HYCLATE Inactive PENICILLIN V POTASSIUM 500 MG TAB 1 four times a day 2 PENICILLIN V POTASSIUM 500 MG TAB 956798 PENICILLIN V POTASSIUM [place] PRISTIQ 50 MG [id number] 1 po qd PRISTIQ 50 MG [id number] DESVENLAFAXINE SUCCINATE Inactive TYLENOL/CODEINE #3 300-30 MG TAB 1-2 po q6hr PRN Pain TYLENOL/CODEINE #3 300-30 MG TAB 301743 ACETAMINOPHEN-CODEINE Inact krishna CEPHALEXIN 500 MG TABS Take one by mouth four times daily, morning, noon, early evening and bedtime. CEPHALEXIN 500 MG TABS 952570 CEPHALEXIN Inactive LORTAB 5 5-500 MG TABS 1/2 to 1 tablet by mouth go ry 6 hours as needed for pain LORTAB 5 5-500 MG TABS HYDROCODONE-A CETAMINOPHEN Inactive AMITRIPTYLINE HCL 25 MG TAB 1 tab by mouth daily 60 minutes before bedtime AMITRIPTYLINE HCL 25 MG TAB 445450 AMITRIPTYLINE HCL Inactive AMOXICILLIN 500 MG TABS 2 tabs PO bid x 10 d 7 AMOXICILLIN 500 MG TABS 211484 AMOXICILLIN Inactive IMPLANON 68 MG IMPL IMPLANTED IN LEFT ARM IMPLANON 68 MG IMPL ETONOGESTREL Inactive HYDROCODONE-ACETAMINOPHEN 5-325 MG TABS 1 PO tid PRN pain 5 HYDROCODONE-ACETAMINOPHEN 5-325 MG TABS 696275 HYDROCODONE-ACETAMIN OPHEN Inactive BACTRIM DS 800-160 MG TAB 1 tab by mouth twice daily 2 BACTRIM DS 800-160 MG TAB TRIMETHOPRIM-SULFAMETHOXAZOLE Inac tive CEPHALEXIN 500 MG CAPS 1 PO bid x 7 days CEPHALEXIN 500 MG CAPS 888411 CEPHALEXIN Inactive HYDROCODONE-ACETAMINOPHEN 5-325 MG TABS 1 tab by mouth every 6 hours as needed HYDROCODONE-ACETAMINOPHEN 5-325 MG TABS 720811 HYDROCODONE-ACETAMINOPHEN Inactive PROMETHAZINE-CODEINE 6.25-10 MG/5ML SYRP 1 tsp every 6 hrs prn c ough PROMETHAZINE-CODEINE 6.25-10 MG/5ML SYRP 311201 PROMETH AZINE-CODEINE Inactive IBUPROFEN 800 MG TAB 1 pill three times daily as needed for pain IBUPROFEN 800 MG TAB 625123 IBUPROFEN Inactive KEFLEX 500 MG CAP 1 tab po tid KEFLEX 500 MG CAP 835723 CEPHALEXIN Inactive HYDROCODONE-ACETAMINOPHEN 7.5-325 MG TABS 1 four times a day as needed for pain HYDROCODONE-ACETAMINOPHEN 7.5-325 MG TABS 377983 HYDROCODONE-ACETAMINOPHEN Inactive BACTRIM DS 800-160 MG TABS by mouth twice a day 11/05 BACTRIM DS 800-160 MG TABS SULFAMETHOXAZOLE-TRIMETHOPRIM Inactive IBUPROFEN 800 MG TABS 1 tid prn IBUPROFEN 800 MG TABS 214777 IBUPROFEN Inactive ENDOCET 10-325 MG TABS 1 q 6 hr prn ENDOC ET 10-325 MG TABS 1901243 OXYCODONE-ACETAMINOPHEN Inactive HYDROCODONE-ACETAMINOPHEN 7.5-325 MG TABS 1 by mouth e very 6 hours as needed for pain HYDROCODONE-ACETAMINOPHEN 7.5-325 MG TABS 778821 HYDROCODONE-ACETAMINOPHEN Inactive PERCOCET 7.5-325 MG TABS 1 PO q 8 hrs PRN pain PERCOCET 7.5-325 MG TABS 6330155 OXYCODONE-ACETAMINOPHEN Inactive LIDODERM 5 % PTCH One patch to painful area PA N. On for 12 hrs, off for 12 hrs. LIDODERM 5 % PTCH 2171820 LIDOCAINE Inactiv e PERCOCET 7.5-325 MG TABS 1 PO tid PRN pain PERCOCET 7.5- 325 MG TABS 8609048 OXYCODONE-ACETAMINOPHEN Inactive MOBIC 15 MG TABS 1 tab daily MOBIC 15 MG TABS 15 2695 MELOXICAM Inactive CYCLOBENZAPRINE HCL 10 MG TABS 1/2 - 1 tab PO tid PRN back p ain, muscle spasm CYCLOBENZAPRINE HCL 10 MG TABS 965059 CYCLOBENZA JOSEPH HCL Inactive LORATADINE 10 MG TABS 1 tablet by mouth daily LORATADINE 10 MG TABS 933750 LORATADINE Inactive HYDROCODONE-ACETAMINOPHEN 10-325 MG TABS 1 by mouth ev chaka 8 hours as needed for pain HYDROCODONE-ACETAMINOPHEN 10-325 MG TABS 879814 HYDROCODONE-ACETAMINOPHEN Inactive LC-5 LIDOCAINE 5 % CREA apply 1 time daily to affected area 2013 LC-5 LIDOCAINE 5 % CREA LIDOCAINE (ANORECTAL) In active PERCOCET 5-325 MG TAB 1 every 6 hours as needed PERCOCET 5-325 MG TAB 2579200 OXYCODONE-ACETAMINOPHEN Inactive KEFLEX 500 MG CAP 1 po qid KEFLEX 500 MG CAP 30 9114 CEPHALEXIN Inactive PROAIR HFA 108 (90 BASE) MCG/ACT AERS 2 puff q 4-6 hrs PRN 01/24 PROAIR HFA 108 (90 BASE) MCG/ACT AERS ALBUTEROL SULFATE Inactive PERCOCET 10-325 MG ORAL TABS 1 every 4 hours as needed PERCOCET 10-325 MG ORAL TABS 2750620 OXYCODONE-ACETAMINOPHEN Inactiv e EMLA 2.5-2.5 % EXT CREA apply to skin lesion q 6 hours, prn 2014 EMLA 2.5-2.5 % EXT CREA 931194 LIDOCAINE-PRILOCAINE Isri ctive AMOXICILLIN 875 MG TABS 1 tab by mouth twice daily 201 07/18/07 AMOXICILLIN 875 MG TABS 071946 AMOXICILLIN Inactive KEFLEX 500 MG CAP 1 po tid x 10 days KEFLEX 500 MG CAP 329715 CEPHALEXIN Inactive AMOXICILLIN 875 MG TABS 1 tab by mouth twice daily 201 07/19/27 AMOXICILLIN 875 MG TABS 215326 AMOXICILLIN Inactive AMOXICILLIN 875 MG TABS 1 tab by mouth twice daily 201 08/09/13 AMOXICILLIN 875 MG TABS 220940 AMOXICILLIN Inactive CIPRO 500 MG TAB 1 tablet by mouth twice daily CIPRO 500 MG TAB 073820 CIPROFLOXACIN HCL Inactive BACTRIM DS 800-160 MG TAB 1 tab by mouth twice daily 2 BACTRIM DS 800-160 MG TAB TRIMETHOPRIM-SULFAMETHOXAZOLE Inac tive LEVAQUIN 500 MG TABS 1 PO q day x 7 days LEVAQUIN 500 MG TABS 001898 LEVOFLOXACIN Inactive CLINDAMYCIN HCL 300 MG CAPS 1 po QID x 7 days CLINDAMYCIN HCL 300 MG CAPS 007149 CLINDAMYCIN HCL Inactive AUGMENTIN 875-125 MG TAB 1 tab by mouth twice daily with food 20 22/05/07 AUGMENTIN 875-125 MG TAB 737428 AMOXICILLIN-POT CLAVULA [place] Inactive DIFLUCAN 150 MG TAB 1 qODay x 2 doses DIFLUCAN 150 MG TAB 047256 FLUCONAZOLE Inactive PREDNISONE 20 MG TAB 2 tabs daily for 3 days, 1 t ab daily for 3 days, 1/2 tab daily for 2 days PREDNISONE 20 MG TAB 536196 PREDNISON E Inactive AUGMENTIN 875-125 MG TAB 1 tab by mouth twice daily with food 20 21/10/13 AUGMENTIN 875-125 MG TAB 960143 AMOXICILLIN-POT CLAVULA [place] Inactive Advance Directives Directive Description Start Date PERMISSION TO SHARE Immunizations Vaccine Administration Date Value Standard Alf cription Seasonal influenza vaccine, injectable, containing preservative, for > 3 years old (Afluria, FluLaval, Fluzone, Fluvirin, Fluarix, Agriflu(>= 18 yo)) Fluzone (>3 yrs.) [[id number]] Influenza, seasonal, inject able Seasonal influenza vaccine, injectable, preservative free, for > 3 years old (Afluria, FluLaval, Fluzone, Fluvirin, Fluarix, Agriflu(>= 18 yo)) Fluzone preservative free (>3 yrs.) [[id number]] Influenza, seasonal, injectable, preservative free Seasonal influenza vaccine, injectable, containing preservative, for > 3 years old (Afluria, FluLaval, Fluzone, Fluvirin, Fluarix, Agriflu(>= 18 yo)) Fluzone (>3 yrs.) [[id number]] Influenza, seasonal, inject able Seasonal influenza vaccine, injectable, containing preservative, for > 3 years old (Afluria, FluLaval, Fluzone, Fluvirin, Fluarix, Agriflu(>= 18 yo)) Fluzone (>3 yrs.) [[id number]] Influenza, seasonal, inject able dT (Diphtheria and Tetanus) booster given Histor ical Td(adult) unspecified formulation Vital Signs Date Name Value Unit Range Description blood pressure, diastolic - 8462-4 84 mm[Hg] [...] Panel - Chemistry sodium, serum 142 mmol/L 745-690 0703/05/12 potassium, serum 4.8 mmol/L 3.5-5.2 chloride, serum [...] Panel - Chemistry cholesterol, serum 165 mg/dL 514-638 6026/05/12 triglyceride, serum, fasting 524 mg/dL 30-200 HDL [...] negative Encounters Code Encounter Date Provider Facility CPT-88104 Level 2 Est. Patient 16:33:01 CDT Kalpesh goins MD [facility] CPT-15841 Level 4 Est. Patient 16:44:56 CDT Abdirahman Rios MD [facility] CPT-90877 Level 2 Est. 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 Patient 14:37:38 LAUNDRY MACHINE TENDER Abdirahman Rios MD [facility] CPT-90990 Level 2 Est. Patient 13:32:17 LAUNDRY MACHINE TENDER Kalpesh goins MD [facility]-07856 Level 3 Est. Patient 17:32:57 LAUNDRY MACHINE TENDER Edilberto tiwari [facility] CPT-91105 Level 3 Est. Patient 17:22:33 LAUNDRY MACHINE TENDER Edilberto tiwari [facility] CPT-81346 Level 2 Est. Patient 16:57:09 LAUNDRY MACHINE TENDER Kalpesh goins MD [facility]-05687 Level 3 Est. Patient 14:03:08 LAUNDRY MACHINE TENDER Abdirahman Rios MD [facility] CPT-19258 Level 3 Est. Patient 18:12:34 CDT Shola Wright [facility] CPT-99488 Level 3 Est. Patient 19:34:46 CDT Shola Wright [facility] CPT-79928 Level 3 Est. Patient 14:19:37 CDT Abdirahman Rios MD [facility] CPT-78366 Level 3 Est. Patient 14:11:58 CDT Kalpesh goins MD [facility]-87455 Level 3 Est. Patient 16:50:00 CDT Michelle MERCADO [facility] CPT-29575 Level 3 Est. Patient 17:11:32 LAUNDRY MACHINE TENDER Brandie bates MD PhD [facility] CPT-72206 Level 3 Est. Patient 16:31:47 LAUNDRY MACHINE TENDER Shola Wright [facility] CPT-05165 Level 3 Est. Patient 17:51:10 LAUNDRY MACHINE TENDER Abhinav Galvan MD [facility] CPT-83365 Level 4 Est. Patient 12:54:56 LAUNDRY MACHINE TENDER Kalpesh goins MD [facility]-77592 Level 4 Est. Patient 12:53:56 LAUNDRY MACHINE TENDER Kalpesh goins MD [facility] CPT-10714 Level 3 Est. Patient 17:56:58 CDT Shola Wright [facility] CPT-18414 Level 3 Est. Patient 14:26:20 CDT Janak butcher [facility] CPT-58732 Level 3 Est. Patient 09:38:41 CDT Shola Thao Adriana [facility] CPT-47890 Level 3 Est. Patient 14:45:26 CDT Edilberto tiwari [facility] CPT-76518 Level 3 Est. Patient 10:51:33 [facility] Level 3 Est. Patient 11:57:55 LAUNDRY MACHINE TENDER Shola Houghsabi [facility] CPT-57497 Level 3 Est. Patient 09:53:33 LAUNDRY MACHINE TENDER Edilberto tiwari [facility] CPT-53243 Level 3 Est. Patient 14:42:54 LAUNDRY MACHINE TENDER Abhinav Galvan MD [facility] CPT-72930 Level 3 Est. Patient 15:10:02 CDT Janak butcher [facility] CPT-66030 Level 3 Est. Patient 15:20:20 CDT Theo dennis MD [facility] CPT-04875 Level 2 Est. Patient 14:08:57 CDT Kalpesh goins MD [facility] CPT-73809 Level 3 Est. Patient 13:56:19 CDT Abdirahman Rios MD [facility] CPT-72441 Level 3 Est. Patient 13:59:37 CDT Abdirahman Rios MD [facility] CPT-59428 Level 2 Est. Patient 14:44:59 CDT Kalpesh goins MD [facility] CPT-40987 Level 3 Est. Patient 06:06:23 CDT Edilberto tiwari DO [facility] CPT-65137 Level 3 Est. Patient 15:23:54 CDT Abdirahman Rios MD [facility] CPT-30175 Level 3 Est. Patient 15:43:49 CDT Abdirahman Rios MD [facility] CPT-22066 Level 3 Est. 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 Patient 10:56:43 CDT Abdirahman Rios MD [facility] CPT-73711 Level 3 Est. Patient 18:24:52 CDT Abdirahman Rios MD [facility] CPT-71918 Level 3 Est. Patient 13:27:22 CDT Abdirahman Rios MD [facility] Procedures Code Procedure Name Date Entry Date Standard Desc ription CPT-40335 Postop F/U Visit 14:40:59 CDT CPT-43463 Postop F/U Visit 15:02:46 CDT CPT-19428 Postop F/U Visit 11:29:00 [employer] CPT-J0696 Rocephin 1000 mg (Ceftriaxone) 17:22:33 [employer] CPT-02421 Postop F/U Visit 18:41:07 [employer] CPT-58724 Postop F/U Visit 08:19:08 [employer] CPT-91166 Immunization Single Admin 16:41:53 CDT 2013 CPT-21326 Fluzone Quadrivalent Intramuscular Suspe nsion 0.5 ML 16:41:53 CDT CPT-OV Office Visit 16:39:18 CDT CPT-OV Office Visit 16:16:36 CDT CPT-OV Office Visit 15:34:48 CDT CPT-71793 Postop F/U Visit 14:50:12 CDT CPT-60366 Postop F/U Visit 14:41:10 CDT CPT-26719 Venipuncture Draw Fee 11:38:04 [employer] CPT-30926 Postop F/U Visit 19:02:59 [employer] CPT-17969 Postop F/U Visit 12:04:54 [employer] CPT-70363 Administration single or combination vac cine inc oral 15:56:43 CDT CPT-90767 Influenza split virus > age 3 15:56:43 CDT CPT-06617 Hand comp min 3V 14:25:19 CDT CPT-30242 Postop F/U Visit 21:40:51 CDT CPT-13342 Postop F/U Visit 10:58:43 CDT CPT-47915 Administration single or combination vac cine inc oral 12:33:54 [employer] CPT-53743 Influenza Preservative Free split virus >age 3 12:33:54 [employer] CPT-48622 Administration single or combination vac cine inc oral 09:30:51 CDT CPT-35088 Influenza split virus > age 3 09:30:51 CDT CPT-08550 Postop F/U Visit 15:14:53 CDT CPT-72076 Postop F/U Visit 13:50:14 CDT CPT-86420 Postop F/U Visit 13:34:52 CDT CPT-OV Office Visit 16:55:03 CDT CPT-46630 [place] of cervix w bx ECC 13:32:50 CDT 10/19 CPT-J1885 Toradol 60 mg (Ketorolac) 15:31:59 CDT 2011 CPT-J1885 Toradol 60 mg (Ketorolac) 15:23:54 CDT 2011 CPT-13211 Visit 11:34:37 [employer] CPT-00653 Visit 10:52:39 [employer] CPT-83258 Visit 10:12:02 [employer] CPT-67111 Visit 11:22:43 [employer] CPT-41265 Visit 11:24:12 [employer] CPT-96673 Visit 10:47:05 [employer] CPT-OV Office Visit 10:26:16 [employer] CPT-OV Office Visit 15:34:31 [employer] CPT-05394 Visit 10:42:08 [employer] CPT-65700 Visit 10:52:45 [employer] CPT-000 Give Appropriate Flu Vaccine 16:56:41 CDT 2 CPT-16138 Administration single or combination vac cine inc oral 10:33:21 CDT CPT-95363 Influenza split virus > age 3 10:33:21 CDT CPT-72286 Visit 13:23:09 CDT CPT-07253 Visit 18:24:52 CDT CPT-09934 Sono OB comp > 14 weeks 12:07:49 CDT 04/07
--- OUTSIDE RECORDS SUMMARY | 2020-01-18 15:48 | XMS REPORT | Clinical Summary ---
Author Author Admin, Jeri Rashid Organization [facility] Address Unknown Phone Unavailable Allergies, Adverse Reactions, [...] NEC Abscess, perirectal 566 Active Hira roman CLAMSHELL OPERATOR Abscess of anal and rectal regions Hypertriglyceridemia [...] of the skin and subcutaneous tissue, NEC LARGE FOR GESTATIONAL AGE ICD-656.60 Inactive Abdirahman Rios MD MASTALGIA ICD-611.71 Inactive Abdirahman Carr BRONCHITIS NOT SPECIFIED ACUTE OR CHRONIC ICD-490 8 Inactive Abdirahman Rios MD FAMILY HISTORY OF ASTHMA ICD-V17.5 Inactive Moni Julian MD DEPRESSION ICD-311 Inactive Good sierra MD ABDOMINAL ABSCESS ICD-682.2 Inactive Abdirahman sanchez MD BACK PAIN ICD-724.5 Inactive Abdirahman Rios [...] FAMILY PLANNING ICD-V25.09 Inactive Good Julian MD SINUSITIS, ACUTE ICD-461.9 Inactive Abdirahman Casas MD 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 Stormy [...] BACK PAIN ICD-724.5 Inactive Good collier MD , INCIDENTAL PROBLEM ICD-V22.2 Inacti latisha Rios MD Dysmenorrhea, severe ICD-625.3 Inactive Kalpesh [...] Generic Name NDC Status Provider Patient Instruction GEMFIBROZIL 600 MG TABS 1 po BID GEMFIBROZIL [id number] Active Abdirahman Rios MD Active HYDROCODONE-ACETAMINOPHEN 5-325 MG TABS 1 po q6hr PRN Pain HYDROCODONE-ACETAMINOPHEN 60634059172 Active Abdirahman Rios MD Active PERCOCET 5-325 MG ORAL TABS 1 every 6 hours as needed OXYCODONE-ACETAMINOPHEN 89973177247 No Longer Active Abdirahman Rios MD Active PERCOCET 5-325 MG TAB 1 tab po q 6 -8 hours, prn for severe pain OXYCODONE-ACETAMINOPHEN 18733505093 No Longer Active Abdirahman Rios MD Active HYDROCODONE-ACETAMINOPHEN 5-325 MG TABS 1 po q6hr PRN pain 06/30 HYDROCODONE-ACETAMINOPHEN 97011781417 No Longer Active Hira roman CLAMSHELL OPERATOR Active SPRINTEC 28 0.25-35 MG-MCG TABS 1 pill by mouth daily for bi rth control NORGESTIMATE-ETH ESTRADIOL 55858576476 Active Karenina Shanti CLAMSHELL OPERATOR Active GLUCOPHAGE 500 MG ORAL TABS one by mouth 3 times a day METFORMIN HCL 37017730742 No Longer Active Hira Moser CLAMSHELL OPERATOR Ac tive PERCOCET 10-325 MG TABS 1 tab by mouth every 6 hours , use sparingly for severe pain OXYCODONE-ACETAMINOPHEN 47281710546 No Longer A ctive Abdirahman Rios MD Active IBUPROFEN 600 MG ORAL TABS 1 by mouth twice a day IBUPROFEN 11033242426 Active ERNIE Higuera Active TRAZODONE HCL 100 MG TAB 0.5 to 1 po qHS PRN Insomnia TRAZODONE HCL 89399658363 Active Abdirahman Rios MD Active CYMBALTA 30 MG CPEP 1 cap by mouth daily DULOXE CLEO HCL 02205561207 Active Abdirahman Rios MD Active EMLA 2.5-2.5 % EXT CREA apply to skin lesion q 6 hours, prn 2014 LIDOCAINE-PRILOCAINE 06301797975 No Longer Active Abdirahman Rios MD Active PERCOCET 10-325 MG ORAL TABS 1 every 4 hours as needed OXYCODONE-ACETAMINOPHEN 63126332091 No Longer Active Abdirahman Rios MD Active [id number] 50-325-40 MG ORAL CAPS 1-2 po TID ND N Headache [id number] 49095621302 Active Abdirahman Rios MD Active AUGMENTIN 875-125 MG TAB 1 tab by mouth twice daily with food 20 21/10/13 AMOXICILLIN-POT CLAVULANATE 48362233207 No Longer Active Ursula Moser CLAMSHELL OPERATOR Active PROAIR HFA 108 (90 BASE) MCG/ACT AERS 2 puff q 4-6 hrs PRN 01/24 ALBUTEROL SULFATE 27466282274 No Longer Active Kalpesh Dong MD Active ALPRAZOLAM 0.5 MG TABS 1 po BID PRN Anxiety ALPRA ZOLAM 71939599385 Active Abdirahman Rios MD Active CYCLOBENZAPRINE HCL 10 MG TABS 1 tablet by mouth three times daily as needed for muscle spasm/pain CYCLOBENZAPRINE HCL 47934049167 Active Abdirahman Rios MD Active PREDNISONE 20 MG TAB 2 tabs daily for 3 days, 1 t ab daily for 3 days, 2 tab daily for 2 days PREDNISONE 68895425623 No Longer Active Abdirahman Rios MD Active KEFLEX 500 MG CAP 1 po qid CEPHALEXIN 849483310 20 No Longer Active Kalpesh Dong MD Active PERCOCET 5-325 MG TAB 1 every 6 hours as needed OXYCODONE-ACETAMINOPHEN 00208663133 No Longer Active Shola MCGILL Active LC-5 LIDOCAINE 5 % CREA apply 1 time daily to affected area 2013 LIDOCAINE (ANORECTAL) 61552588876 No Longer Active Jillina F radhaell CLAMSHELL OPERATOR Active HYDROCODONE-ACETAMINOPHEN 10-325 MG TABS 1 by mouth ev chaka 8 hours as needed for pain HYDROCODONE-ACETAMINOPHEN 26778050340 No Longer Active Jillina Frazell CLAMSHELL OPERATOR Active LORATADINE 10 MG TABS 1 tablet by mouth daily L ORATADINE 37654456036 No Longer Active Jillina Frazell CLAMSHELL OPERATOR Active DIFLUCAN 150 MG TAB 1 qODay x 2 doses FLUCONAZO LE 14929505563 No Longer Active Jillina Frazell CLAMSHELL OPERATOR Active CYCLOBENZAPRINE HCL 10 MG TABS 1/2 - 1 tab PO tid PRN back p ain, muscle spasm CYCLOBENZAPRINE HCL 46940595365 No Longer Active Karen siri Frazell CLAMSHELL OPERATOR Active AUGMENTIN 875-125 MG TAB 1 tab by mouth twice daily with food 20 22/05/07 AMOXICILLIN-POT CLAVULANATE 39789554409 No Longer Active Loida Rios MD Active MOBIC 15 MG TABS 1 tab daily MELOXICAM 090782691 14 No Longer Active Abdirahman Rios MD Active PERCOCET 7.5-325 MG TABS 1 PO tid PRN pain OXYCODONE-ACETAMINOPHEN 51816378216 No Longer Active Abdirahman Rios MD Active LIDODERM 5 % PTCH One patch to painful area ND N. On for 12 hrs, off for 12 hrs. LIDOCAINE 64817689410 No Longer Active Abdirahman Rios MD Active PERCOCET 7.5-325 MG TABS 1 PO q 8 hrs PRN pain OXYCODONE-ACETAMINOPHEN 80417941729 No Longer Active Shola MCGILL Active HYDROCODONE-ACETAMINOPHEN 7.5-325 MG TABS 1 by mouth e very 6 hours as needed for pain HYDROCODONE-ACETAMINOPHEN 52246389455 No Longer Active Good Julian MD Active CLINDAMYCIN HCL 300 MG CAPS 1 po QID x 7 days CLINDAMYCIN HCL 31561917187 No Longer Active Abdirahman Rios MD Activ e BACTRIM DS 800-160 MG TABS 1 po BID x 7 days 5 SULFAMETHOXAZOLE-TRIMETHOPRIM 82155732088 No Longer Active Abdirahman Rios MD Active ENDOCET 10-325 MG TABS 1 q 6 hr prn OXYCODONE-ACETAMINOPHEN 49264358182 No Longer Active Abdirahman Rios MD Active IBUPROFEN 800 MG TABS 1 tid prn IBUPROFEN 620447 07682 No Longer Active Abdirahman Rios MD Active BACTRIM DS 800-160 MG TABS by mouth twice a day 11/05 SULFAMETHOXAZOLE-TRIMETHOPRIM 69025357151 No Longer Active Good Julian MD Active HYDROCODONE-ACETAMINOPHEN 7.5-325 MG TABS 1 four times a day as needed for pain HYDROCODONE-ACETAMINOPHEN 58110357846 No Longer Activ e Good Julian MD Active KEFLEX 500 MG CAP 1 tab po tid CEPHALEXIN 411528 23835 No Longer Active Hira Moser APRN Active IBUPROFEN 800 MG TAB 1 pill three times daily as needed for pain IBUPROFEN 51668037475 No Longer Active Kalpesh Dong MD Active PROMETHAZINE-CODEINE 6.25-10 MG/5ML SYRP 1 tsp every 6 hrs prn c ough PROMETHAZINE-CODEINE 86850850120 No Longer Active Kalpesh Carr Active HYDROCODONE-ACETAMINOPHEN 5-325 MG TABS 1 tab by mouth every 6 hours as needed HYDROCODONE-ACETAMINOPHEN 77742328614 No Longer Activ e Shola MCGILL Active CEPHALEXIN 500 MG CAPS 1 PO bid x 7 days CEPHAL EXIN 98105103468 No Longer Active Shola MCGILL Active BACTRIM DS 800-160 MG TAB 1 tab by mouth twice daily 2 TRIMETHOPRIM-SULFAMETHOXAZOLE 46032680521 No Longer Active Kalpesh Dong MD Active HYDROCODONE-ACETAMINOPHEN 5-325 MG TABS 1 PO tid PRN pain 5 HYDROCODONE-ACETAMINOPHEN 70263209764 No Longer Active Abhinav Galvan MD Active IMPLANON 68 MG IMPL IMPLANTED IN LEFT ARM ETONO GESTREL 27141136979 No Longer Active Hira Moser APRN Active AMOXICILLIN 500 MG TABS 2 tabs PO bid x 10 d AM OXICILLIN 18559372269 No Longer Active Kalpesh Dong MD Active LEVAQUIN 500 MG TABS 1 PO q day x 7 days LEVOFL OXACIN 11701658121 No Longer Active Shola MCGILL Active AMITRIPTYLINE HCL 25 MG TAB 1 tab by mouth daily 60 minutes before bedtime AMITRIPTYLINE HCL 10075459525 No Longer Active Shola MCGILL Active LORTAB 5 5-500 MG TABS 1/2 to 1 tablet by mouth go ry 6 hours as needed for pain HYDROCODONE-ACETAMINOPHEN 55182229005 No Longer Active Shola MCGILL Active CEPHALEXIN 500 MG TABS Take one by mouth four times daily, morning, noon, early evening and bedtime. CEPHALEXIN 64183778660 No Long er Active Jillina Frazell CLAMSHELL OPERATOR Active TYLENOL/CODEINE #3 300-30 MG TAB 1-2 po q6hr PRN Pain ACETAMINOPHEN-CODEINE 50190465957 No Longer Active Edilberto Marino DO Active PRISTIQ 50 MG [id number]-DME 1 po qd DESVENLAFAXI NE SUCCINATE 24994427461 No Longer Active Edilberto Marino DO Active PENICILLIN V POTASSIUM 500 MG TAB 1 four times a day 2 PENICILLIN V POTASSIUM 07389902184 No Longer Active Edilberto Marino DO Active DOXYCYCLINE HYCLATE 100 MG CAPS Take one (1) tablet by mouth twice a day DOXYCYCLINE HYCLATE 09399612474 No Longer Active Ronnie Galvan MD Active HYDROCODONE-ACETAMINOPHEN 5-325 MG TABS 1 po q 6hr PRN Pain 2011 HYDROCODONE-ACETAMINOPHEN 57313851980 No Longer Active Jerson Perez RN Active BACTRIM DS 800-160 MG TAB 1 tab by mouth twice daily 2 TRIMETHOPRIM-SULFAMETHOXAZOLE 56834564021 No Longer Active Kalpesh Dong MD Active LORTAB 5 5-500 MG TABS 1/2 to 1 tablet by mouth go ry 4 hours as needed for pain HYDROCODONE-ACETAMINOPHEN 83270387899 No Longer Active Kalpesh Dong MD Active GENERESS FE 0.8-25 MG-MCG CHEW Take one by mouth daily NORETHIN-ETH ESTRADIOL-FE 89484615579 No Longer Active Kalpesh Dong MD Active HYDROCODONE-ACETAMINOPHEN 7.5-500 MG TABS 1-2 every 4 hours as needed HYDROCODONE-ACETAMINOPHEN 13209267976 No Longer Activ e Kalpesh Dong MD Active FERROUS SULFATE 325 (65 FE) MG TABS 1 tablet by mouth twice yung y FERROUS SULFATE 27058530593 No Longer Active Kalpesh Dong MD Active IBUPROFEN 600 MG TAB 1 po q6-8hr PRN IBUPROFEN 71514734222 No Longer Active Kalpesh Dong MD Active SPIRONOLACTONE 25 MG TAB 1 tablet by mouth daily 01/22 SPIRONOLACTONE 78181586263 No Longer Active Kalpesh Dong MD Acti ve HYDROCODONE-ACETAMINOPHEN 7.5-325 MG TABS 1 po QID PRN Pain 2011 HYDROCODONE-ACETAMINOPHEN 04202236784 No Longer Active Kalpesh Dong MD Active CLINDAMYCIN HCL 300 MG CAPS 1 po q6hr x 7 days CLINDAMYCIN HCL 35227699372 No Longer Active Edilberto Marino DO Active PREDNISONE 20 MG TAB 2 tabs daily for 4 days, 1 t ab daily for 4 days, 1/2 tab daily for 4 days PREDNISONE 99293536620 No Longer Active Edilberto Marino DO Active PERCOCET 5-325 MG TABS 1 tablet by mouth every 6 hours as ne eded for pain OXYCODONE-ACETAMINOPHEN 50289964121 No Longer Active Abdirahman Rios MD Active VITAMINS TABS Take one by mouth daily MV & MIN W/FE-FA TABS 32730521712 No Longer Active Abdirahman Rios MD Active LUIS 3-0.02 MG TABS 1 tablet by mouth daily as directed DROSPIRENONE-ETHINYL ESTRADIOL 69057234838 No Longer Active Abdirahman Rios MD Active LORATADINE 10 MG TABS 1 tablet by mouth daily L ORATADINE 58001207588 No Longer Active Kalpesh Dong MD Active HYDROCODONE-ACETAMINOPHEN 5-325 MG TABS 1 po q 6hr PRN Pain 2010 HYDROCODONE-ACETAMINOPHEN 54546233484 No Longer Active Edilberto Marino DO Active BACTRIM DS 800-160 MG TAB 1 tab by mouth twice daily 2 TRIMETHOPRIM-SULFAMETHOXAZOLE 74138958457 No Longer Active Abdirahman Rios MD Active 28-0.8 MG TABS Take one by mouth daily 09/20 VIT-FE FUMARATE-FA 47899162846 No Longer Active Abdirahman Rios MD Active CIPRO 500 MG TAB 1 tablet by mouth twice daily CIPROFLOXACIN HCL 17862381054 No Longer Active Abdirahman Rios MD Active BENADRYL 25 MG CAP 1 po q8hr PRN Congestion DIPHENHYDRAMINE HCL 70591334498 No Longer Active Abdirahman Rios MD Active ZOLOFT 50 MG TAB 1 po qd SERTRALINE HCL 275253 80292 No Longer Active Abdirahman Rios MD Active AMOXICILLIN 875 MG TABS 1 tab by mouth twice daily 201 08/09/13 AMOXICILLIN 76591189512 No Longer Active Abdirahman Rios MD Activ e AMOXICILLIN 875 MG TABS 1 tab by mouth twice daily 201 07/19/27 AMOXICILLIN 92536230716 No Longer Active Abdirahman Rios MD Activ e BACTRIM DS 800-160 MG TAB 2 tab by mouth twice daily 2 TRIMETHOPRIM-SULFAMETHOXAZOLE 56450004094 No Longer Active Abdirahman Rios MD Active KEFLEX 500 MG CAP 1 po tid x 10 days CEPHALEXIN 57605039176 No Longer Active Abdirahman Rios MD Active AMOXICILLIN 875 MG TABS 1 tab by mouth twice daily 201 07/18/07 AMOXICILLIN 41049991797 No Longer Active Abdirahman Rios MD Activ e BACTRIM DS 800-160 MG TAB 2 tab by mouth twice daily 2 BACTRIM DS 800-160 MG TAB TRIMETHOPRIM-SULFAMETHOXAZOLE Inactive ZOLOFT 50 MG TAB 1 po qd ZOLOFT 50 MG TAB 3129 41 SERTRALINE HCL Inactive BENADRYL 25 MG CAP 1 po q8hr PRN Congestion BENADRYL 25 MG CAP 4561168 DIPHENHYDRAMINE HCL Inactive 28-0.8 MG TABS Take one by mouth daily 3/15 28-0.8 MG TABS VIT-FE FUMARATE-FA Inactive HYDROCODONE-ACETAMINOPHEN 5-325 MG TABS 1 po q 6hr PRN Pain 2010 HYDROCODONE-ACETAMINOPHEN 5-325 MG TABS 818395 HYDROCODONE-ACETAMINOPHEN Inactive LORATADINE 10 MG TABS 1 tablet by mouth daily LORATADINE 10 MG TABS 443453 LORATADINE Inactive LUIS 3-0.02 MG TABS 1 tablet by mouth daily as directed LUIS 3-0.02 MG TABS DROSPIRENONE-ETHINYL ESTRADIOL Inactive VITAMINS TABS Take one by mouth daily VITAMINS TABS MV & MIN W/FE-FA TABS Inactive PERCOCET 5-325 MG TABS 1 tablet by mouth every 6 hours as ne eded for pain PERCOCET 5-325 MG TABS 8937985 OXYCODONE-ACETAMIN OPHEN Inactive PREDNISONE 20 MG TAB 2 tabs daily for 4 days, 1 t ab daily for 4 days, 1/2 tab daily for 4 days PREDNISONE 20 MG TAB 719830 PREDNISON E Inactive CLINDAMYCIN HCL 300 MG CAPS 1 po q6hr x 7 days CLINDAMYCIN HCL 300 MG CAPS 708234 CLINDAMYCIN HCL Inactive HYDROCODONE-ACETAMINOPHEN 7.5-325 MG TABS 1 po QID PRN Pain 2011 HYDROCODONE-ACETAMINOPHEN 7.5-325 MG TABS 394770 HYDROCODONE-ACETAMINOPHEN Inactive SPIRONOLACTONE 25 MG TAB 1 tablet by mouth daily 01/22 SPIRONOLACTONE 25 MG TAB 062677 SPIRONOLACTONE Inactive IBUPROFEN 600 MG TAB 1 po q6-8hr PRN IBUPROFEN 600 MG TAB 690129 IBUPROFEN Inactive FERROUS SULFATE 325 (65 FE) MG TABS 1 tablet by mouth twice yung y FERROUS SULFATE 325 (65 FE) MG TABS 166256 FERROUS SULF ATE Inactive HYDROCODONE-ACETAMINOPHEN 7.5-500 MG TABS 1-2 every 4 hours as needed HYDROCODONE-ACETAMINOPHEN 7.5-500 MG TABS HYDROCODONE-ACETAMINOPHEN Inactive GENERESS FE 0.8-25 MG-MCG CHEW Take one by mouth daily GENERESS FE 0.8-25 MG-MCG CHEW 3592452 NORETHIN-ETH ESTRADIOL-FE Inactive LORTAB 5 5-500 MG [...] PRN Pain 2011 HYDROCODONE-ACETAMINOPHEN 5-325 MG TABS 731064 HYDROCODONE-ACETAMINOPHEN Inactive DOXYCYCLINE HYCLATE 100 MG CAPS Take one (1) tablet by mouth twice a day DOXYCYCLINE HYCLATE 100 MG CAPS 3235732 DOXYCYCLINE HYCLATE Inactive PENICILLIN V POTASSIUM 500 MG TAB 1 four times a day 2 PENICILLIN V POTASSIUM 500 MG TAB 919531 PENICILLIN V POTASSIUM [place] ctive PRISTIQ 50 MG [id number] 1 po qd PRISTIQ 50 MG [id number] DESVENLAFAXINE SUCCINATE Inactive TYLENOL/CODEINE #3 300-30 MG TAB 1-2 po q6hr PRN Pain TYLENOL/CODEINE #3 300-30 MG TAB 881859 ACETAMINOPHEN-CODEINE Inact krishna CEPHALEXIN 500 MG TABS Take one by mouth four times daily, morning, noon, early evening and bedtime. CEPHALEXIN 500 MG TABS 905434 CEPHALEXIN Inactive LORTAB 5 5-500 MG TABS 1/2 to 1 tablet by mouth go ry 6 hours as needed for pain LORTAB 5 5-500 MG TABS HYDROCODONE-A CETAMINOPHEN Inactive AMITRIPTYLINE HCL 25 MG TAB 1 tab by mouth daily 60 minutes before bedtime AMITRIPTYLINE HCL 25 MG TAB 068209 AMITRIPTYLINE HCL Inactive AMOXICILLIN 500 MG TABS 2 tabs PO bid x 10 d 7 AMOXICILLIN 500 MG TABS 143302 AMOXICILLIN Inactive IMPLANON 68 MG IMPL IMPLANTED IN LEFT ARM IMPLANON 68 MG IMPL ETONOGESTREL Inactive HYDROCODONE-ACETAMINOPHEN 5-325 MG TABS 1 PO tid PRN pain 5 HYDROCODONE-ACETAMINOPHEN 5-325 MG TABS 947840 HYDROCODONE-ACETAMIN OPHEN Inactive BACTRIM DS 800-160 MG TAB 1 tab by mouth twice daily 2 BACTRIM DS 800-160 MG TAB TRIMETHOPRIM-SULFAMETHOXAZOLE Inac tive CEPHALEXIN 500 MG CAPS 1 PO bid x 7 days CEPHALEXIN 500 MG CAPS 124859 CEPHALEXIN Inactive HYDROCODONE-ACETAMINOPHEN 5-325 MG TABS 1 tab by mouth every 6 hours as needed HYDROCODONE-ACETAMINOPHEN 5-325 MG TABS 549934 HYDROCODONE-ACETAMINOPHEN Inactive PROMETHAZINE-CODEINE 6.25-10 MG/5ML SYRP 1 tsp every 6 hrs prn c ough PROMETHAZINE-CODEINE 6.25-10 MG/5ML SYRP 487144 PROMETH AZINE-CODEINE Inactive IBUPROFEN 800 MG TAB 1 pill three times daily as needed for pain IBUPROFEN 800 MG TAB 458370 IBUPROFEN Inactive KEFLEX 500 MG CAP 1 tab po tid KEFLEX 500 MG CAP 543110 CEPHALEXIN Inactive HYDROCODONE-ACETAMINOPHEN 7.5-325 MG TABS 1 four times a day as needed for pain HYDROCODONE-ACETAMINOPHEN 7.5-325 MG TABS 776529 HYDROCODONE-ACETAMINOPHEN Inactive BACTRIM DS 800-160 MG TABS by mouth twice a day 11/05 BACTRIM DS 800-160 MG TABS SULFAMETHOXAZOLE-TRIMETHOPRIM Inactive IBUPROFEN 800 MG TABS 1 tid prn IBUPROFEN 800 MG TABS 646084 IBUPROFEN Inactive ENDOCET 10-325 MG TABS 1 q 6 hr prn ENDOC ET 10-325 MG TABS 1900328 OXYCODONE-ACETAMINOPHEN Inactive HYDROCODONE-ACETAMINOPHEN 7.5-325 MG TABS 1 by mouth e very 6 hours as needed for pain HYDROCODONE-ACETAMINOPHEN 7.5-325 MG TABS 420996 HYDROCODONE-ACETAMINOPHEN Inactive PERCOCET 7.5-325 MG TABS 1 PO q 8 hrs PRN pain PERCOCET 7.5-325 MG TABS 7517251 OXYCODONE-ACETAMINOPHEN Inactive LIDODERM 5 % PTCH One patch to painful area ND N. On for 12 hrs, off for 12 hrs. LIDODERM 5 % PTCH 7761774 LIDOCAINE Inactiv e PERCOCET 7.5-325 MG TABS 1 PO tid PRN pain PERCOCET 7.5- 325 MG TABS 5078355 OXYCODONE-ACETAMINOPHEN Inactive MOBIC 15 MG TABS 1 tab daily MOBIC 15 MG TABS 15 2695 MELOXICAM Inactive CYCLOBENZAPRINE HCL 10 MG TABS 1/2 - 1 tab PO tid PRN back p ain, muscle spasm CYCLOBENZAPRINE HCL 10 MG TABS 819238 CYCLOBENZA JOSEPH HCL Inactive LORATADINE 10 MG TABS 1 tablet by mouth daily LORATADINE 10 MG TABS 245663 LORATADINE Inactive HYDROCODONE-ACETAMINOPHEN 10-325 MG TABS 1 by mouth ev chaka 8 hours as needed for pain HYDROCODONE-ACETAMINOPHEN 10-325 MG TABS 350856 HYDROCODONE-ACETAMINOPHEN Inactive LC-5 LIDOCAINE 5 % CREA apply 1 time daily to affected area 2013 LC-5 LIDOCAINE 5 % CREA LIDOCAINE (ANORECTAL) In active PERCOCET 5-325 MG TAB 1 every 6 hours as needed PERCOCET 5-325 MG TAB 5633654 OXYCODONE-ACETAMINOPHEN Inactive KEFLEX 500 MG CAP 1 po qid KEFLEX 500 MG CAP 30 9114 CEPHALEXIN Inactive PROAIR HFA 108 (90 BASE) MCG/ACT AERS 2 puff q 4-6 hrs PRN 01/24 PROAIR HFA 108 (90 BASE) MCG/ACT AERS ALBUTEROL SULFATE Inactive PERCOCET 10-325 MG ORAL TABS 1 every 4 hours as needed PERCOCET 10-325 MG ORAL TABS 6897390 OXYCODONE-ACETAMINOPHEN Inactiv e EMLA 2.5-2.5 % EXT CREA apply to skin lesion q 6 hours, prn 2014 EMLA 2.5-2.5 % EXT CREA 293134 LIDOCAINE-PRILOCAINE Siri ctive PERCOCET 10-325 MG TABS 1 tab by mouth every 6 hours , use sparingly for severe pain PERCOCET 10-325 MG TABS 7413467 OXYCODONE-ACETAMINOPHEN Inactive GLUCOPHAGE 500 MG ORAL TABS one by mouth 3 times a day GLUCOPHAGE 500 MG ORAL TABS 437459 METFORMIN HCL Inactive HYDROCODONE-ACETAMINOPHEN 5-325 MG TABS 1 po q6hr PRN pain 06/30 HYDROCODONE-ACETAMINOPHEN 5-325 MG TABS 495036 HYDROCOD ONE-ACETAMINOPHEN Inactive PERCOCET 5-325 MG TAB 1 tab po q 6 -8 hours, prn for severe pain PERCOCET 5-325 MG TAB 6956262 OXYCODONE-ACETAMINOPHEN In active PERCOCET 5-325 MG ORAL TABS 1 every 6 hours as needed PERCOCET 5-325 MG ORAL TABS 2321141 OXYCODONE-ACETAMINOPHEN Inactive AMOXICILLIN 875 MG TABS 1 tab by mouth twice daily 201 07/18/07 AMOXICILLIN 875 MG TABS 967772 AMOXICILLIN Inactive KEFLEX 500 MG CAP 1 po tid x 10 days KEFLEX 500 MG CAP 167391 CEPHALEXIN Inactive AMOXICILLIN 875 MG TABS 1 tab by mouth twice daily 201 07/19/27 AMOXICILLIN 875 MG TABS 335122 AMOXICILLIN Inactive AMOXICILLIN 875 MG TABS 1 tab by mouth twice daily 201 08/09/13 AMOXICILLIN 875 MG TABS 544641 AMOXICILLIN Inactive CIPRO 500 MG TAB 1 tablet by mouth twice daily CIPRO 500 MG TAB 568316 CIPROFLOXACIN HCL Inactive BACTRIM DS 800-160 MG TAB 1 tab by mouth twice daily 2 BACTRIM DS 800-160 MG TAB TRIMETHOPRIM-SULFAMETHOXAZOLE Inac tive LEVAQUIN 500 MG TABS 1 PO q day x 7 days LEVAQUIN 500 MG TABS 234217 LEVOFLOXACIN Inactive CLINDAMYCIN HCL 300 MG CAPS 1 po QID x 7 days CLINDAMYCIN HCL 300 MG CAPS 050760 CLINDAMYCIN HCL Inactive AUGMENTIN 875-125 MG TAB 1 tab by mouth twice daily with food 20 22/05/07 AUGMENTIN 875-125 MG TAB 411190 AMOXICILLIN-POT CLAVULA [place] Inactive DIFLUCAN 150 MG TAB 1 qODay x 2 doses DIFLUCAN 150 MG TAB 958931 FLUCONAZOLE Inactive PREDNISONE 20 MG TAB 2 tabs daily for 3 days, 1 t ab daily for 3 days, 1/2 tab daily for 2 days PREDNISONE 20 MG TAB 715269 PREDNISON E Inactive AUGMENTIN 875-125 MG TAB 1 tab by mouth twice daily with food 20 21/10/13 AUGMENTIN 875-125 MG TAB 941785 AMOXICILLIN-POT CLAVULA [place] Inactive Advance Directives Directive Description Start Date PERMISSION TO SHARE Immunizations Vaccine Administration Date Value Standard Alf cription Seasonal influenza vaccine, injectable, containing preservative, for > 3 years old (Afluria, FluLaval, Fluzone, Fluvirin, Fluarix, Agriflu(>= 18 yo)) Fluzone (>3 yrs.) [[id number]] Influenza, seasonal, inject able Seasonal influenza vaccine, injectable, preservative free, for > 3 years old (Afluria, FluLaval, Fluzone, Fluvirin, Fluarix, Agriflu(>= 18 yo)) Fluzone preservative free (>3 yrs.) [[id number]] Influenza, seasonal, injectable, preservative free Seasonal influenza vaccine, injectable, containing preservative, for > 3 years old (Afluria, FluLaval, Fluzone, Fluvirin, Fluarix, Agriflu(>= 18 yo)) Fluzone (>3 yrs.) [[id number]] Influenza, seasonal, inject able Seasonal influenza vaccine, injectable, containing preservative, for > 3 years old (Afluria, FluLaval, Fluzone, Fluvirin, Fluarix, Agriflu(>= 18 yo)) Fluzone (>3 yrs.) [[id number]] Influenza, seasonal, inject able dT (Diphtheria and [...] Panel - Chemistry sodium, serum 142 mmol/L 308-479 3591/05/12 potassium, serum 4.8 mmol/L 3.5-5.2 chloride, serum [...] count 291 10^3/MM^3 10*3/mm3 142-424 Lab Report: DNA (ds) ANTIBODIES - Hemato logy leukocyte count, blood <1 IU/mL 10*3/mm3 Lab Report: LDL DIRECT - Chemistry LDL cholesterol, serum 90.00 mg/dL 5.00-130.00 Lab Report: Lipid Panel - Chemistry cholesterol, serum 181 mg/dL 809-935 8433/09/01 triglyceride, serum, fasting 341 mg/dL 30-200 HDL cholesterol, serum 22 mg/dL 32-96 LDL cholesterol, serum 91 mg/dL 0-130 cholesterol, serum 165 mg/dL 504-682 4922/05/12 triglyceride, serum, fasting 524 mg/dL 30-200 HDL [...] negative Encounters Code Encounter Date Provider Facility CPT-32701 Level 3 Est. Patient 14:29:53 CDT Abhinav Galvan MD [facility]-29778 Level 2 Est. Patient 16:33:01 CDT Kalpesh goins MD [facility]-25121 Level 4 Est. Patient 16:44:56 CDT Abdirahman Rios MD [facility]-20119 Level 2 Est. Patient 07:49:32 CDT Kalpesh goins MD [facility] CPT-79780 Level 3 New Patient 15:47:11 CONFERENCE COORDINATOR Bj huber MD [facility]-62739 Level 4 Est. Patient 14:37:38 CONFERENCE COORDINATOR Abdirahman Rios MD [facility]-85647 Level 2 Est. Patient 13:32:17 CONFERENCE COORDINATOR Kalpesh goins MD [facility]-83018 Level 3 Est. Patient 17:32:57 CONFERENCE COORDINATOR Edilberto tiwari DO [facility] CPT-68546 Level 3 Est. Patient 17:22:33 CONFERENCE COORDINATOR Edilberto tiwari [facility]-25775 Level 2 Est. Patient 16:57:09 CONFERENCE COORDINATOR Kalpesh goins MD [facility]-10845 Level 3 Est. Patient 14:03:08 CONFERENCE COORDINATOR Abdirahman Rios MD [facility] CPT-99433 Level 3 Est. Patient 18:12:34 CDT Shola Wright [facility] CPT-97349 Level 3 Est. Patient 19:34:46 CDT Shola Wright [facility] CPT-23573 Level 3 Est. Patient 14:19:37 CDT Abdirahman Rios MD [facility] CPT-82448 Level 3 Est. Patient 14:11:58 CDT Kalpesh goins MD [facility] CPT-08532 Level 3 Est. Patient 16:50:00 CDT Michelle MERCADO [facility] CPT-26821 Level 3 Est. Patient 17:11:32 CONFERENCE COORDINATOR Brandie bates MD PhD [facility] CPT-91140 Level 3 Est. Patient 16:31:47 CONFERENCE COORDINATOR Shola Houghsabi [facility] CPT-52910 Level 3 Est. Patient 17:51:10 CONFERENCE COORDINATOR Abhinav Galvan MD [facility] CPT-04892 Level 4 Est. Patient 12:54:56 CONFERENCE COORDINATOR Kalpesh goins MD [facility] CPT-58060 Level 4 Est. Patient 12:53:56 CONFERENCE COORDINATOR Kalpesh goins MD [facility] CPT-08008 Level 3 Est. Patient 17:56:58 CDT Shola Houghsabi [facility] CPT-14913 Level 3 Est. Patient 14:26:20 CDT Janak butcher [facility] CPT-11193 Level 3 Est. Patient 09:38:41 CDT Shola Houghsabi [facility] CPT-04493 Level 3 Est. Patient 14:45:26 CDT Edilberto tiwari DO [facility] CPT-42888 Level 3 Est. Patient 10:51:33 CDT [facility] Level 3 Est. Patient 11:57:55 CONFERENCE COORDINATOR Shola MCGILL [facility] CPT-79133 Level 3 Est. Patient 09:53:33 CONFERENCE COORDINATOR Edilberto tiwari [facility] CPT-73802 Level 3 Est. Patient 14:42:54 CONFERENCE COORDINATOR Abhinav Galvan MD [facility] CPT-74072 Level 3 Est. Patient 15:10:02 CDT Janak butcher [facility] CPT-69125 Level 3 Est. Patient 15:20:20 CDT Theo dennis MD [facility]-44336 Level 2 Est. Patient 14:08:57 CDT Kalpesh goins MD [facility] CPT-07351 Level 3 Est. Patient 13:56:19 CDT Abdirahman Rios MD [facility] CPT-24399 Level 3 Est. Patient 13:59:37 CDT Abdirahman Rios MD [facility] CPT-68314 Level 2 Est. Patient 14:44:59 CDT Kalpesh goins MD [facility] CPT-62505 Level 3 Est. Patient 06:06:23 CDT Edilberto tiwari [facility] CPT-31450 Level 3 Est. Patient 15:23:54 CDT Abdirahman Rios MD [facility] CPT-70243 Level 3 Est. Patient 15:43:49 CDT Abdirahman Rios MD [facility] CPT-22427 Level 3 Est. Patient 12:46:47 CONFERENCE COORDINATOR Abdirahman Rios MD [facility] CPT-35564 Level 3 Est. Patient 08:13:35 CONFERENCE COORDINATOR Abdirahman Rios MD [facility] CPT-56341 Level 2 Est. Patient 09:36:42 CONFERENCE COORDINATOR Abdirahman Rios MD [facility] CPT-79365 Level 3 Est. Patient 10:56:43 CDT Abdirahman Rios MD [facility] CPT-82220 Level 3 Est. Patient 18:24:52 CDT Abdirahman Rios MD [facility] CPT-34185 Level 3 Est. Patient 13:27:22 CDT Abdirahman Rios MD [facility] Procedures Code Procedure Name Date Entry Date Standard Desc ription CPT-42241 Venipuncture Draw Fee 14:27:29 CDT CPT-30716 Postop F/U Visit 15:27:43 CDT CPT-58224 Postop F/U Visit 14:40:59 CDT CPT-53936 Postop F/U Visit 15:02:46 CDT CPT-82235 Postop F/U Visit 11:29:00 CONFERENCE COORDINATOR CPT-J0696 Rocephin 1000 mg (Ceftriaxone) 17:22:33 CONFERENCE COORDINATOR CPT-22992 Postop F/U Visit 18:41:07 CONFERENCE COORDINATOR CPT-67537 Postop F/U Visit 08:19:08 CONFERENCE COORDINATOR CPT-97509 Immunization Single Admin 16:41:53 CDT 2013 CPT-57966 Fluzone Quadrivalent Intramuscular Suspe nsion 0.5 ML 16:41:53 CDT CPT-OV Office Visit 16:39:18 CDT CPT-OV Office Visit 16:16:36 CDT CPT-OV Office Visit 15:34:48 CDT CPT-30461 Postop F/U Visit 14:50:12 CDT CPT-50010 Postop F/U Visit 14:41:10 CDT CPT-66897 Venipuncture Draw Fee 11:38:04 CONFERENCE COORDINATOR CPT-33351 Postop F/U Visit 19:02:59 CONFERENCE COORDINATOR CPT-75675 Postop F/U Visit 12:04:54 CONFERENCE COORDINATOR CPT-10814 Administration single or combination vac cine inc oral 15:56:43 CDT CPT-16992 Influenza split virus > age 3 15:56:43 CDT CPT-95971 Hand comp min 3V 14:25:19 CDT CPT-82423 Postop F/U Visit 21:40:51 CDT CPT-11939 Postop F/U Visit 10:58:43 CDT CPT-05769 Administration single or combination vac cine inc oral 12:33:54 CONFERENCE COORDINATOR CPT-75880 Influenza Preservative Free split virus >age 3 12:33:54 CONFERENCE COORDINATOR CPT-61788 Administration single or combination vac cine inc oral 09:30:51 CDT CPT-59121 Influenza split virus > age 3 09:30:51 CDT CPT-65680 Postop F/U Visit 15:14:53 CDT CPT-42171 Postop F/U Visit 13:50:14 CDT CPT-66950 Postop F/U Visit 13:34:52 CDT CPT-OV Office Visit 16:55:03 CDT CPT-32754 [place] of cervix w bx ECC 13:32:50 CDT 10/19 CPT-J1885 Toradol 60 mg (Ketorolac) 15:31:59 CDT 2011 CPT-J1885 Toradol 60 mg (Ketorolac) 15:23:54 CDT 2011 CPT-37433 Visit 11:34:37 CONFERENCE COORDINATOR CPT-03640 Visit 10:52:39 CONFERENCE COORDINATOR CPT-18787 Visit 10:12:02 CONFERENCE COORDINATOR CPT-55381 Visit 11:22:43 CONFERENCE COORDINATOR CPT-65838 Visit 11:24:12 CONFERENCE COORDINATOR CPT-19587 Visit 10:47:05 CONFERENCE COORDINATOR CPT-OV Office Visit 10:26:16 CONFERENCE COORDINATOR CPT-OV Office Visit 15:34:31 CONFERENCE COORDINATOR CPT-37940 Visit 10:42:08 CONFERENCE COORDINATOR CPT-06328 Visit 10:52:45 CONFERENCE COORDINATOR CPT-000 Give Appropriate Flu Vaccine 16:56:41 CDT 2 CPT-75438 Administration single or combination vac cine inc oral 10:33:21 CDT CPT-74698 Influenza split virus > age 3 10:33:21 CDT CPT-55507 Visit 13:23:09 CDT CPT-83008 Visit 18:24:52 CDT CPT-69942 Sono OB comp > 14 weeks 12:07:49 CDT 04/07
--- OUTSIDE RECORDS SUMMARY | 2020-01-18 15:49 | XMS REPORT | Clinical Summary ---
Author Author Admin, Jeri Rashid Organization [facility] Address Unknown Phone Unavailable Allergies, Adverse [...] FOLLOW SURGERY SYSTEM NEC V58.76 Resolved Good Julina MD Aftercare following surgery of the genitourinary [...] NEC Abscess, perirectal 566 Active Hira roman SENIOR IT RECRUITER Abscess of anal and rectal regions Hypertriglyceridemia 272.1 Active Abdirahman restrepo MD Pure hyperglyceridemia , INCIDENTAL PROBLEM ICD-V22.2 Inacti ve Abdirahman [...] Generic Name NDC Status Provider Patient Instruction TRAZODONE HCL 100 MG TAB 0.5 to 1 po qHS PRN Insomnia TRAZODONE HCL 27975247452 Active Abdirahman Rios MD Active CYMBALTA 30 MG CPEP 1 cap by mouth daily DULOXE CLEO HCL 24912971206 Active Abdirahman Rios MD Active EMLA 2.5-2.5 % EXT CREA apply to skin lesion q 6 hours, prn 2014 LIDOCAINE-PRILOCAINE 80708836455 No Longer Active Abdirahman Rios MD Active HYDROCODONE-ACETAMINOPHEN 5-325 MG TABS 1 po q6hr PRN pain HYDROCODONE-ACETAMINOPHEN 08083780655 Active Abdirahman Rios MD Active PERCOCET 10-325 MG ORAL TABS 1 every 4 hours as needed OXYCODONE-ACETAMINOPHEN 38192827369 No Longer Active Abdirahman Rios MD Active [id number] 50-325-40 MG ORAL CAPS 1-2 po TID CO N Headache [id number] 26965138674 Active Abdirahman Rios MD Active AUGMENTIN 875-125 MG TAB 1 tab by mouth twice daily with food 20 21/10/13 AMOXICILLIN-POT CLAVULANATE 33311365922 No Longer Active Ursula jasmina Frazell SENIOR IT RECRUITER Active PROAIR HFA 108 (90 BASE) MCG/ACT AERS 2 puff q 4-6 hrs PRN 01/24 ALBUTEROL SULFATE 82452785018 No Longer Active Kalpesh Dong MD Active ALPRAZOLAM 0.5 MG TABS 1 po BID PRN Anxiety ALPRA ZOLAM 91812894369 Active Abdirahman Rios MD Active CYCLOBENZAPRINE HCL 10 MG TABS 1 tablet by mouth three times daily as needed for muscle spasm/pain CYCLOBENZAPRINE HCL 72179897163 Active Abdirahman Rios MD Active PREDNISONE 20 MG TAB 2 tabs daily for 3 days, 1 t ab daily for 3 days, 1/2 tab daily for 2 days PREDNISONE 80472879812 No Longer Active Abdirahman Rios MD Active KEFLEX 500 MG CAP 1 po qid CEPHALEXIN 274894978 20 No Longer Active Kalpesh Dong MD Active PERCOCET 5-325 MG TAB 1 every 6 hours as needed OXYCODONE-ACETAMINOPHEN 58844386722 No Longer Active Shola MCGILL Active LC-5 LIDOCAINE 5 % CREA apply 1 time daily to affected area 2013 LIDOCAINE (ANORECTAL) 51075131680 No Longer Active Hira muniz SENIOR IT RECRUITER Active HYDROCODONE-ACETAMINOPHEN 10-325 MG TABS 1 by mouth ev chaka 8 hours as needed for pain HYDROCODONE-ACETAMINOPHEN 84451609275 No Longer Active Jillina Frazell SENIOR IT RECRUITER Active LORATADINE 10 MG TABS 1 tablet by mouth daily L ORATADINE 97648353085 No Longer Active Jillina Frazell SENIOR IT RECRUITER Active DIFLUCAN 150 MG TAB 1 qODay x 2 doses FLUCONAZO LE 30046185128 No Longer Active Jillina Frazell SENIOR IT RECRUITER Active CYCLOBENZAPRINE HCL 10 MG TABS 1/2 - 1 tab PO tid PRN back p ain, muscle spasm CYCLOBENZAPRINE HCL 04666265835 No Longer Active Karen siri Frazell SENIOR IT RECRUITER Active AUGMENTIN 875-125 MG TAB 1 tab by mouth twice daily with food 20 22/05/07 AMOXICILLIN-POT CLAVULANATE 58615438356 No Longer Active Loida Rios MD Active MOBIC 15 MG TABS 1 tab daily MELOXICAM 853752191 14 No Longer Active Abdirahman Rios MD Active PERCOCET 7.5-325 MG TABS 1 PO tid PRN pain OXYCODONE-ACETAMINOPHEN 62353928196 No Longer Active Abdirahman Rios MD Active LIDODERM 5 % PTCH One patch to painful area CO N. On for 12 hrs, off for 12 hrs. LIDOCAINE 81055823413 No Longer Active Abdirahman Rios MD Active PERCOCET 7.5-325 MG TABS 1 PO q 8 hrs PRN pain OXYCODONE-ACETAMINOPHEN 45523278713 No Longer Active Shola MCGILL Active HYDROCODONE-ACETAMINOPHEN 7.5-325 MG TABS 1 by mouth e very 6 hours as needed for pain HYDROCODONE-ACETAMINOPHEN 88452000812 No Longer Active Good Julian MD Active CLINDAMYCIN HCL 300 MG CAPS 1 po QID x 7 days CLINDAMYCIN HCL 17238242096 No Longer Active Abdirahman Rios MD Activ e BACTRIM DS 800-160 MG TABS 1 po BID x 7 days 5 SULFAMETHOXAZOLE-TRIMETHOPRIM 97126598515 No Longer Active Abdirahman Rios MD Active ENDOCET 10-325 MG TABS 1 q 6 hr prn OXYCODONE-ACETAMINOPHEN 21467661600 No Longer Active Abdirahman Rios MD Active IBUPROFEN 800 MG TABS 1 tid prn IBUPROFEN 803370 13923 No Longer Active Abdirahman Rios MD Active BACTRIM DS 800-160 MG TABS by mouth twice a day 11/05 SULFAMETHOXAZOLE-TRIMETHOPRIM 04958758803 No Longer Active Good Julian MD Active HYDROCODONE-ACETAMINOPHEN 7.5-325 MG TABS 1 four times a day as needed for pain HYDROCODONE-ACETAMINOPHEN 81831486531 No Longer Activ crystal Julian MD Active KEFLEX 500 MG CAP 1 tab po tid CEPHALEXIN 811119 35463 No Longer Active Hira Moser APRN Active IBUPROFEN 800 MG TAB 1 pill three times daily as needed for pain IBUPROFEN 24131645135 No Longer Active Kalpesh Dong MD Active PROMETHAZINE-CODEINE 6.25-10 MG/5ML SYRP 1 tsp every 6 hrs prn c ough PROMETHAZINE-CODEINE 25877721748 No Longer Active Kalpesh Carr Active HYDROCODONE-ACETAMINOPHEN 5-325 MG TABS 1 tab by mouth every 6 hours as needed HYDROCODONE-ACETAMINOPHEN 48263802734 No Longer Activ e Shola MCGILL Active CEPHALEXIN 500 MG CAPS 1 PO bid x 7 days CEPHAL EXIN 12979603831 No Longer Active Shola MCGILL Active BACTRIM DS 800-160 MG TAB 1 tab by mouth twice daily 2 TRIMETHOPRIM-SULFAMETHOXAZOLE 82361044255 No Longer Active Kalpesh Dong MD Active HYDROCODONE-ACETAMINOPHEN 5-325 MG TABS 1 PO tid PRN pain 5 HYDROCODONE-ACETAMINOPHEN 95925428395 No Longer Active Abhinav Galvan MD Active IMPLANON 68 MG IMPL IMPLANTED IN LEFT ARM ETONO GESTREL 57926409877 No Longer Active Hira Moser APRN Active AMOXICILLIN 500 MG TABS 2 tabs PO bid x 10 d AM OXICILLIN 60437564620 No Longer Active Kalpesh Dong MD Active LEVAQUIN 500 MG TABS 1 PO q day x 7 days LEVOFL OXACIN 93067443967 No Longer Active Shola MCGILL Active AMITRIPTYLINE HCL 25 MG TAB 1 tab by mouth daily 60 minutes before bedtime AMITRIPTYLINE HCL 83054298740 No Longer Active Shola MCGILL Active LORTAB 5 5-500 MG TABS 1/2 to 1 tablet by mouth go ry 6 hours as needed for pain HYDROCODONE-ACETAMINOPHEN 26639355236 No Longer Active Shola MCGILL Active CEPHALEXIN 500 MG TABS Take one by mouth four times daily, morning, noon, early evening and bedtime. CEPHALEXIN 27159264373 No Long er Active Hira Moser APRN Active TYLENOL/CODEINE #3 300-30 MG TAB 1-2 po q6hr PRN Pain ACETAMINOPHEN-CODEINE 91511010158 No Longer Active Edilberto Marino DO Active PRISTIQ 50 MG [id number] 1 po qd DESVENLAFAXI NE SUCCINATE 18459818486 No Longer Active Edilberto Marino DO Active PENICILLIN V POTASSIUM 500 MG TAB 1 four times a day 2 PENICILLIN V POTASSIUM 50056320215 No Longer Active Edilberto Marino DO Active DOXYCYCLINE HYCLATE 100 MG CAPS Take one (1) tablet by mouth twice a day DOXYCYCLINE HYCLATE 65297959143 No Longer Active Ronnie Galvan MD Active HYDROCODONE-ACETAMINOPHEN 5-325 MG TABS 1 po q 6hr PRN Pain 2011 HYDROCODONE-ACETAMINOPHEN 26952187141 No Longer Active Patri joan Perez RN Active BACTRIM DS 800-160 MG TAB 1 tab by mouth twice daily 2 TRIMETHOPRIM-SULFAMETHOXAZOLE 04883249280 No Longer Active Kalpesh Dong MD Active LORTAB 5 5-500 MG TABS 1/2 to 1 tablet by mouth go ry 4 hours as needed for pain HYDROCODONE-ACETAMINOPHEN 59119072306 No Longer Active Kalpesh Dong MD Active GENERESS FE 0.8-25 MG-MCG CHEW Take one by mouth daily NORETHIN-ETH ESTRADIOL-FE 55672327029 No Longer Active Kalpesh Dong MD Active HYDROCODONE-ACETAMINOPHEN 7.5-500 MG TABS 1-2 every 4 hours as needed HYDROCODONE-ACETAMINOPHEN 70583142789 No Longer Activ e Kalpesh Dong MD Active FERROUS SULFATE 325 (65 FE) MG TABS 1 tablet by mouth twice yung y FERROUS SULFATE 56835845626 No Longer Active Kalpesh Dong MD Active IBUPROFEN 600 MG TAB 1 po q6-8hr PRN IBUPROFEN 64650518076 No Longer Active Kalpesh Dong MD Active SPIRONOLACTONE 25 MG TAB 1 tablet by mouth daily 01/22 SPIRONOLACTONE 96694356519 No Longer Active Kalpesh Dong MD Acti ve HYDROCODONE-ACETAMINOPHEN 7.5-325 MG TABS 1 po QID PRN Pain 2011 HYDROCODONE-ACETAMINOPHEN 05770731493 No Longer Active Kalpesh Dong MD Active CLINDAMYCIN HCL 300 MG CAPS 1 po q6hr x 7 days CLINDAMYCIN HCL 16116095665 No Longer Active Edilberto Marino DO Active PREDNISONE 20 MG TAB 2 tabs daily for 4 days, 1 t ab daily for 4 days, 1/2 tab daily for 4 days PREDNISONE 57941844860 No Longer Active Edilberto Marino DO Active PERCOCET 5-325 MG TABS 1 tablet by mouth every 6 hours as ne eded for pain OXYCODONE-ACETAMINOPHEN 43673127029 No Longer Active Abdirahman Rios MD Active VITAMINS TABS Take one by mouth daily MV & MIN W/FE-FA TABS 59846986578 No Longer Active Abdirahman Rios MD Active LUIS 3-0.02 MG TABS 1 tablet by mouth daily as directed DROSPIRENONE-ETHINYL ESTRADIOL 57190783131 No Longer Active Abdirahman Rios MD Active LORATADINE 10 MG TABS 1 tablet by mouth daily L ORATADINE 54475619622 No Longer Active Kalpesh Dong MD Active HYDROCODONE-ACETAMINOPHEN 5-325 MG TABS 1 po q 6hr PRN Pain 2010 HYDROCODONE-ACETAMINOPHEN 21458740021 No Longer Active Edilberto Marino DO Active BACTRIM DS 800-160 MG TAB 1 tab by mouth twice daily 2 TRIMETHOPRIM-SULFAMETHOXAZOLE 54517866541 No Longer Active Abdirahman Rios MD Active 28-0.8 MG TABS Take one by mouth daily 09/20 VIT-FE FUMARATE-FA 62584878554 No Longer Active Abdirahman Rios MD Active CIPRO 500 MG TAB 1 tablet by mouth twice daily CIPROFLOXACIN HCL 35125520755 No Longer Active Abdirahman Rios MD Active BENADRYL 25 MG CAP 1 po q8hr PRN Congestion DIPHENHYDRAMINE HCL 82168798152 No Longer Active Abdirahman Rios MD Active ZOLOFT 50 MG TAB 1 po qd SERTRALINE HCL 095310 88468 No Longer Active Abdirahman Rios MD Active AMOXICILLIN 875 MG TABS 1 tab by mouth twice daily 201 08/09/13 AMOXICILLIN 33888228692 No Longer Active Abdirahman Rios MD Activ e AMOXICILLIN 875 MG TABS 1 tab by mouth twice daily 201 07/19/27 AMOXICILLIN 67402698930 No Longer Active Abdirahman Rios MD Activ e BACTRIM DS 800-160 MG TAB 2 tab by mouth twice daily 2 TRIMETHOPRIM-SULFAMETHOXAZOLE 13926840544 No Longer Active Abdirahman Rios MD Active KEFLEX 500 MG CAP 1 po tid x 10 days CEPHALEXIN 01880825658 No Longer Active Abdirahman Rios MD Active AMOXICILLIN 875 MG TABS 1 tab by mouth twice daily 201 07/18/07 AMOXICILLIN 91901089280 No Longer Active Abdirahman Rios MD Activ e BACTRIM DS 800-160 MG TAB 2 tab by mouth twice daily 2 BACTRIM DS 800-160 MG TAB TRIMETHOPRIM-SULFAMETHOXAZOLE Inactive ZOLOFT 50 MG TAB 1 po qd ZOLOFT 50 MG TAB 3129 41 SERTRALINE HCL Inactive BENADRYL 25 MG CAP 1 po q8hr PRN Congestion BENADRYL 25 MG CAP 6974312 DIPHENHYDRAMINE HCL Inactive 28-0.8 MG TABS Take one by mouth daily 09/20 28-0.8 MG TABS VIT-FE FUMARATE-FA Inactive HYDROCODONE-ACETAMINOPHEN 5-325 MG TABS 1 po q 6hr PRN Pain 2010 HYDROCODONE-ACETAMINOPHEN 5-325 MG TABS 867107 HYDROCODONE-ACETAMINOPHEN Inactive LORATADINE 10 MG TABS 1 tablet by mouth daily LORATADINE 10 MG TABS 629679 LORATADINE Inactive LUIS 3-0.02 MG TABS 1 tablet by mouth daily as directed LUIS 3-0.02 MG TABS DROSPIRENONE-ETHINYL ESTRADIOL Inactive VITAMINS TABS Take one by mouth daily VITAMINS TABS MV & MIN W/FE-FA TABS Inactive PERCOCET 5-325 MG TABS 1 tablet by mouth every 6 hours as ne eded for pain PERCOCET 5-325 MG TABS 3988149 OXYCODONE-ACETAMIN OPHEN Inactive PREDNISONE 20 MG TAB 2 tabs daily for 4 days, 1 t ab daily for 4 days, 1/2 tab daily for 4 days PREDNISONE 20 MG TAB 050911 PREDNISON E Inactive CLINDAMYCIN HCL 300 MG CAPS 1 po q6hr x 7 days CLINDAMYCIN HCL 300 MG CAPS 068291 CLINDAMYCIN HCL Inactive HYDROCODONE-ACETAMINOPHEN 7.5-325 MG TABS 1 po QID PRN Pain 2011 HYDROCODONE-ACETAMINOPHEN 7.5-325 MG TABS 521664 HYDROCODONE-ACETAMINOPHEN Inactive SPIRONOLACTONE 25 MG TAB 1 tablet by mouth daily 01/22 SPIRONOLACTONE 25 MG TAB 934101 SPIRONOLACTONE Inactive IBUPROFEN 600 MG TAB 1 po q6-8hr PRN IBUPROFEN 600 MG TAB 687215 IBUPROFEN Inactive FERROUS SULFATE 325 (65 FE) MG TABS 1 tablet by mouth twice yung y FERROUS SULFATE 325 (65 FE) MG TABS 550176 FERROUS SULF ATE Inactive HYDROCODONE-ACETAMINOPHEN 7.5-500 MG TABS 1-2 every 4 hours as needed HYDROCODONE-ACETAMINOPHEN 7.5-500 MG TABS HYDROCODONE-ACETAMINOPHEN Inactive GENERESS FE 0.8-25 MG-MCG CHEW Take one by mouth daily GENERESS FE 0.8-25 MG-MCG CHEW NORETHIN-ETH ESTRADIOL-FE Inactive LORTAB 5 5-500 MG [...] PRN Pain 2011 HYDROCODONE-ACETAMINOPHEN 5-325 MG TABS 066471 HYDROCODONE-ACETAMINOPHEN Inactive DOXYCYCLINE HYCLATE 100 MG CAPS Take one (1) tablet by mouth twice a day DOXYCYCLINE HYCLATE 100 MG CAPS 632566 DOXYCYCLINE HYCLATE Inactive PENICILLIN V POTASSIUM 500 MG TAB 1 four times a day 2 PENICILLIN V POTASSIUM 500 MG TAB 447699 PENICILLIN V POTASSIUM Siri ctive PRISTIQ 50 MG [id number] 1 po qd PRISTIQ 50 MG [id number] DESVENLAFAXINE SUCCINATE Inactive TYLENOL/CODEINE #3 300-30 MG TAB 1-2 po q6hr PRN Pain TYLENOL/CODEINE #3 300-30 MG TAB 416812 ACETAMINOPHEN-CODEINE Inact krishna CEPHALEXIN 500 MG TABS Take one by mouth four times daily, morning, noon, early evening and bedtime. CEPHALEXIN 500 MG TABS 662723 CEPHALEXIN Inactive LORTAB 5 5-500 MG TABS 1/2 to 1 tablet by mouth go ry 6 hours as needed for pain LORTAB 5 5-500 MG TABS HYDROCODONE-A CETAMINOPHEN Inactive AMITRIPTYLINE HCL 25 MG TAB 1 tab by mouth daily 60 minutes before bedtime AMITRIPTYLINE HCL 25 MG TAB 859856 AMITRIPTYLINE HCL Inactive AMOXICILLIN 500 MG TABS 2 tabs PO bid x 10 d 7 AMOXICILLIN 500 MG TABS 347243 AMOXICILLIN Inactive IMPLANON 68 MG IMPL IMPLANTED IN LEFT ARM IMPLANON 68 MG IMPL ETONOGESTREL Inactive HYDROCODONE-ACETAMINOPHEN 5-325 MG TABS 1 PO tid PRN pain 5 HYDROCODONE-ACETAMINOPHEN 5-325 MG TABS 250496 HYDROCODONE-ACETAMIN OPHEN Inactive BACTRIM DS 800-160 MG TAB 1 tab by mouth twice daily 2 BACTRIM DS 800-160 MG TAB TRIMETHOPRIM-SULFAMETHOXAZOLE Inac tive CEPHALEXIN 500 MG CAPS 1 PO bid x 7 days CEPHALEXIN 500 MG CAPS 066440 CEPHALEXIN Inactive HYDROCODONE-ACETAMINOPHEN 5-325 MG TABS 1 tab by mouth every 6 hours as needed HYDROCODONE-ACETAMINOPHEN 5-325 MG TABS 335271 HYDROCODONE-ACETAMINOPHEN Inactive PROMETHAZINE-CODEINE 6.25-10 MG/5ML SYRP 1 tsp every 6 hrs prn c ough PROMETHAZINE-CODEINE 6.25-10 MG/5ML SYRP 908936 PROMETH AZINE-CODEINE Inactive IBUPROFEN 800 MG TAB 1 pill three times daily as needed for pain IBUPROFEN 800 MG TAB 553153 IBUPROFEN Inactive KEFLEX 500 MG CAP 1 tab po tid KEFLEX 500 MG CAP 937379 CEPHALEXIN Inactive HYDROCODONE-ACETAMINOPHEN 7.5-325 MG TABS 1 four times a day as needed for pain HYDROCODONE-ACETAMINOPHEN 7.5-325 MG TABS 499065 HYDROCODONE-ACETAMINOPHEN Inactive BACTRIM DS 800-160 MG TABS by mouth twice a day 11/05 BACTRIM DS 800-160 MG TABS SULFAMETHOXAZOLE-TRIMETHOPRIM Inactive IBUPROFEN 800 MG TABS 1 tid prn IBUPROFEN 800 MG TABS 512059 IBUPROFEN Inactive ENDOCET 10-325 MG TABS 1 q 6 hr prn ENDOC ET 10-325 MG TABS 6996611 OXYCODONE-ACETAMINOPHEN Inactive HYDROCODONE-ACETAMINOPHEN 7.5-325 MG TABS 1 by mouth e very 6 hours as needed for pain HYDROCODONE-ACETAMINOPHEN 7.5-325 MG TABS 512857 HYDROCODONE-ACETAMINOPHEN Inactive PERCOCET 7.5-325 MG TABS 1 PO q 8 hrs PRN pain PERCOCET 7.5-325 MG TABS 5043316 OXYCODONE-ACETAMINOPHEN Inactive LIDODERM 5 % PTCH One patch to painful area CO N. On for 12 hrs, off for 12 hrs. LIDODERM 5 % PTCH 0678611 LIDOCAINE Inactiv e PERCOCET 7.5-325 MG TABS 1 PO tid PRN pain PERCOCET 7.5- 325 MG TABS 6503806 OXYCODONE-ACETAMINOPHEN Inactive MOBIC 15 MG TABS 1 tab daily MOBIC 15 MG TABS 15 2695 MELOXICAM Inactive CYCLOBENZAPRINE HCL 10 MG TABS 1/2 - 1 tab PO tid PRN back p ain, muscle spasm CYCLOBENZAPRINE HCL 10 MG TABS 818968 CYCLOBENZA JOSEPH HCL Inactive LORATADINE 10 MG TABS 1 tablet by mouth daily LORATADINE 10 MG TABS 945252 LORATADINE Inactive HYDROCODONE-ACETAMINOPHEN 10-325 MG TABS 1 by mouth ev chaka 8 hours as needed for pain HYDROCODONE-ACETAMINOPHEN 10-325 MG TABS 055495 HYDROCODONE-ACETAMINOPHEN Inactive LC-5 LIDOCAINE 5 % CREA apply 1 time daily to affected area 2013 LC-5 LIDOCAINE 5 % CREA LIDOCAINE (ANORECTAL) In active PERCOCET 5-325 MG TAB 1 every 6 hours as needed PERCOCET 5-325 MG TAB 6411624 OXYCODONE-ACETAMINOPHEN Inactive KEFLEX 500 MG CAP 1 po qid KEFLEX 500 MG CAP 30 9114 CEPHALEXIN Inactive PROAIR HFA 108 (90 BASE) MCG/ACT AERS 2 puff q 4-6 hrs PRN 01/24 PROAIR HFA 108 (90 BASE) MCG/ACT AERS ALBUTEROL SULFATE Inactive PERCOCET 10-325 MG ORAL TABS 1 every 4 hours as needed PERCOCET 10-325 MG ORAL TABS 2084686 OXYCODONE-ACETAMINOPHEN Inactiv e EMLA 2.5-2.5 % EXT CREA apply to skin lesion q 6 hours, prn 2014 EMLA 2.5-2.5 % EXT CREA 896071 LIDOCAINE-PRILOCAINE Siri ctive AMOXICILLIN 875 MG TABS 1 tab by mouth twice daily 201 07/18/07 AMOXICILLIN 875 MG TABS 596672 AMOXICILLIN Inactive KEFLEX 500 MG CAP 1 po tid x 10 days KEFLEX 500 MG CAP 884109 CEPHALEXIN Inactive AMOXICILLIN 875 MG TABS 1 tab by mouth twice daily 201 07/19/27 AMOXICILLIN 875 MG TABS 741827 AMOXICILLIN Inactive AMOXICILLIN 875 MG TABS 1 tab by mouth twice daily 201 08/09/13 AMOXICILLIN 875 MG TABS 381289 AMOXICILLIN Inactive CIPRO 500 MG TAB 1 tablet by mouth twice daily CIPRO 500 MG TAB 046785 CIPROFLOXACIN HCL Inactive BACTRIM DS 800-160 MG TAB 1 tab by mouth twice daily 2 BACTRIM DS 800-160 MG TAB TRIMETHOPRIM-SULFAMETHOXAZOLE Inac tive LEVAQUIN 500 MG TABS 1 PO q day x 7 days LEVAQUIN 500 MG TABS 813584 LEVOFLOXACIN Inactive CLINDAMYCIN HCL 300 MG CAPS 1 po QID x 7 days CLINDAMYCIN HCL 300 MG CAPS 902229 CLINDAMYCIN HCL Inactive AUGMENTIN 875-125 MG TAB 1 tab by mouth twice daily with food 20 22/05/07 AUGMENTIN 875-125 MG TAB 529681 AMOXICILLIN-POT CLAVULA [place] Inactive DIFLUCAN 150 MG TAB 1 qODay x 2 doses DIFLUCAN 150 MG TAB 603809 FLUCONAZOLE Inactive PREDNISONE 20 MG TAB 2 tabs daily for 3 days, 1 t ab daily for 3 days, 1/2 tab daily for 2 days PREDNISONE 20 MG TAB 367703 PREDNISON E Inactive AUGMENTIN 875-125 MG TAB 1 tab by mouth twice daily with food 20 21/10/13 AUGMENTIN 875-125 MG TAB 772205 AMOXICILLIN-POT CLAVULA [place] Inactive Advance Directives Directive Description Start Date PERMISSION TO SHARE Immunizations Vaccine Administration Date Value Standard Alf cription Seasonal influenza vaccine, injectable, containing preservative, for > 3 years old (Afluria, FluLaval, Fluzone, Fluvirin, Fluarix, Agriflu(>= 18 yo)) Fluzone (>3 yrs.) [[id number]] Influenza, seasonal, inject able Seasonal influenza vaccine, injectable, preservative free, for > 3 years old (Afluria, FluLaval, Fluzone, Fluvirin, Fluarix, Agriflu(>= 18 yo)) Fluzone preservative free (>3 yrs.) [[id number]] Influenza, seasonal, injectable, preservative free Seasonal influenza vaccine, injectable, containing preservative, for > 3 years old (Afluria, FluLaval, Fluzone, Fluvirin, Fluarix, Agriflu(>= 18 yo)) Fluzone (>3 yrs.) [[id number]] Influenza, seasonal, inject able Seasonal influenza vaccine, injectable, containing preservative, for > 3 years old (Afluria, FluLaval, Fluzone, Fluvirin, Fluarix, Agriflu(>= 18 yo)) Fluzone (>3 yrs.) [[id number]] Influenza, seasonal, inject able dT (Diphtheria and Tetanus) booster given Histor ical Td(adult) unspecified formulation Vital Signs Date Name Value Unit Range Description blood pressure, diastolic - 8462-4 96 mm[Hg] [...] pressure, diastolic - 8462-4 88 mm[Hg] BP riberio blood pressure, systolic - 8480-6 132 mm[Hg] [...] Panel - Chemistry sodium, serum 142 mmol/L 155-507 5834/05/12 potassium, serum 4.8 mmol/L 3.5-5.2 chloride, serum [...] Panel - Chemistry cholesterol, serum 165 mg/dL 883-688 2479/05/12 triglyceride, serum, fasting 524 mg/dL 30-200 HDL [...] negative Encounters Code Encounter Date Provider Facility CPT-33269 Level 4 Est. Patient 16:44:56 CDT Abdirahman Rios MD [facility] CPT-31106 Level 2 Est. Patient 07:49:32 CDT Kalpesh goins MD [facility] CPT-87479 Level 3 New Patient 15:47:11 [employer]IC[employer] Bj huber MD [facility]-35689 Level 4 Est. Patient 14:37:38 [employer] Abdirahman Rios MD [facility] CPT-36092 Level 2 Est. Patient 13:32:17 [employer]NIC[employer] Kalpesh goins MD [facility] CPT-09158 Level 3 Est. Patient 17:32:57 [employer] Edilberto tiwari [facility] CPT-74216 Level 3 Est. Patient 17:22:33 TECHNIC[employer] Edilberto tiwari [facility] CPT-48096 Level 2 Est. Patient 16:57:09 TECHNICIAN [employer] Kalpesh goins MD [facility]-56078 Level 3 Est. Patient 14:03:08 TECHNIC[employer] Abdirahman Rios MD [facility] CPT-42881 Level 3 Est. Patient 18:12:34 CDT Shola Houghsabi [facility] CPT-86118 Level 3 Est. Patient 19:34:46 CDT Shola Houghsabi [facility] CPT-88191 Level 3 Est. Patient 14:19:37 CDT Abdirahman Rios MD [facility] CPT-77664 Level 3 Est. Patient 14:11:58 CDT Kalpesh goins MD [facility] CPT-86808 Level 3 Est. Patient 16:50:00 CDT Michelle MERCADO [facility] CPT-46483 Level 3 Est. Patient 17:11:32 TECHNIC[employer] Brandie bates MD PhD [facility] CPT-42638 Level 3 Est. Patient 16:31:47 TECHNIC[employer] Shola Wright [facility] CPT-92284 Level 3 Est. Patient 17:51:10 TE[employer]NIC[employer] Abhinav Galvan MD [facility] CPT-96775 Level 4 Est. Patient 12:54:56 TE[employer]NIC[employer] Kalpesh goins MD [facility] CPT-55008 Level 4 Est. Patient 12:53:56 TECHNICIAN [employer] Kalpesh goins MD [facility] CPT-11147 Level 3 Est. Patient 17:56:58 CDT Shola Wright [facility] CPT-24273 Level 3 Est. Patient 14:26:20 CDT Janak butcher [facility] CPT-75662 Level 3 Est. Patient 09:38:41 CDT Shola Wright [facility] CPT-76170 Level 3 Est. Patient 14:45:26 CDT Edilberto tiwari DO [facility] CPT-32056 Level 3 Est. Patient 10:51:33 [facility] Level 3 Est. Patient 11:57:55 TECHNICIAN [employer] Shola Wright [facility] CPT-08499 Level 3 Est. Patient 09:53:33 TECHNICIAN [employer] Edilberto tiwari [facility] CPT-61297 Level 3 Est. Patient 14:42:54 TECHNIC[employer] Abhinav Galvan MD [facility] CPT-43240 Level 3 Est. Patient 15:10:02 CDT Janak Stevenamira butcher [facility] CPT-49517 Level 3 Est. Patient 15:20:20 CDT Theo dennis MD [facility]-94145 Level 2 Est. Patient 14:08:57 CDT Kalpesh goins MD [facility] CPT-89032 Level 3 Est. Patient 13:56:19 CDT Abdirahman Rios MD [facility] CPT-68782 Level 3 Est. Patient 13:59:37 CDT Abdirahman Rios MD [facility] CPT-56536 Level 2 Est. Patient 14:44:59 CDT Kalpesh goins MD [facility] CPT-36049 Level 3 Est. Patient 06:06:23 CDT Edilberto tiwari [facility] CPT-39497 Level 3 Est. Patient 15:23:54 CDT Abdirahman Rios MD [facility] CPT-40887 Level 3 Est. Patient 15:43:49 CDT Abdirahman Rios MD [facility] CPT-90374 Level 3 Est. Patient 12:46:47 [employer] Abdirahman Riso MD [facility] CPT-61674 Level 3 Est. Patient 08:13:35 [employer] Abdirahman Rios MD [facility] CPT-99868 Level 2 Est. Patient 09:36:42 [employer] Abdirahman Rios MD [facility] CPT-65190 Level 3 Est. Patient 10:56:43 CDT Abdirahman Rios MD [facility] CPT-55910 Level 3 Est. Patient 18:24:52 CDT Abdirahman Rios MD [facility] CPT-42932 Level 3 Est. 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 CPT-37566 Postop F/U Visit 08:19:08 [employer] CPT-55670 Immunization Single Admin 16:41:53 CDT 2013 CPT-42257 Fluzone Quadrivalent Intramuscular Suspe nsion 0.5 ML 16:41:53 CDT CPT-OV Office Visit 16:39:18 CDT CPT-OV Office Visit 16:16:36 CDT CPT-OV Office Visit 15:34:48 CDT CPT-12406 Postop F/U Visit 14:50:12 CDT CPT-09813 Postop F/U Visit 14:41:10 CDT CPT-77919 Venipuncture Draw Fee 11:38:04 [employer] CPT-97310 Postop F/U Visit 19:02:59 [employer] CPT-81815 Postop F/U Visit 12:04:54 TE[employer] CPT-25359 Administration single or combination vac cine inc oral 15:56:43 CDT CPT-26678 Influenza split virus > age 3 15:56:43 CDT CPT-45041 Hand comp min 3V 14:25:19 CDT CPT-82709 Postop F/U Visit 21:40:51 CDT CPT-54514 Postop F/U Visit 10:58:43 CDT CPT-96217 Administration single or combination vac cine inc oral 12:33:54 TE[employer] CPT-74247 Influenza Preservative Free split virus >age 3 12:33:54 [employer] CPT-47920 Administration single or combination vac cine inc oral 09:30:51 CDT CPT-47376 Influenza split virus > age 3 09:30:51 CDT CPT-96452 Postop F/U Visit 15:14:53 CDT CPT-00352 Postop F/U Visit 13:50:14 CDT CPT-75393 Postop F/U Visit 13:34:52 CDT CPT-OV Office Visit 16:55:03 CDT CPT-74952 [place] of cervix w bx ECC 13:32:50 CDT 10/19 CPT-J1885 Toradol 60 mg (Ketorolac) 15:31:59 CDT 2011 CPT-J1885 Toradol 60 mg (Ketorolac) 15:23:54 CDT 2011 CPT-72823 Visit 11:34:37 TE[employer]ICIAN [employer] CPT-84809 Visit 10:52:39 [employer] CPT-15298 Visit 10:12:02 [employer] CPT-95891 Visit 11:22:43 [employer] CPT-50216 Visit 11:24:12 [employer] CPT-84990 Visit 10:47:05 [employer] CPT-OV Office Visit 10:26:16 [employer] CPT-OV Office Visit 15:34:31 [employer] CPT-27797 Visit 10:42:08 [employer] CPT-30238 Visit 10:52:45 TE[employer] CPT-000 Give Appropriate Flu Vaccine 16:56:41 CDT 2 CPT-37716 Administration single or combination vac cine inc oral 10:33:21 CDT CPT-67229 Influenza split virus > age 3 10:33:21 CDT CPT-97630 Visit 13:23:09 CDT CPT-50641 Visit 18:24:52 CDT CPT-66382 Sono OB comp > 14 weeks 12:07:49 CDT 04/07
--- OUTSIDE RECORDS SUMMARY | 2020-01-18 15:49 | XMS REPORT | Clinical Summary ---
Author Author Admin, Jeri Rashid Organization [facility] Address Unknown Phone Unavailable Allergies, Adverse Reactions, Alerts Allergy Name Reaction Description Start Date Severity Status Pr ovider BACTRIM Critical Active Kalpesh Dong MD ZITHROMAX rash all over Critical Active Dayra H aubrey LATEX rash Moderate Active Darya [...] SKIN&SUBCUT TISSUE NEC V58.77 11/26 Resolved Good Jluian MD Aftercare followi ng surgery of the [...] Resolved Good Julian MD Dysuria Hypoglycemia 251.2 Active Joann KLEIN Hypoglycemia, unspecified Anxiety 300.00 Active Joann Grace [...] FOLLOW SURGERY SKIN&SUBCUT TISSUE NEC V58.77 08/27 Active Kalpesh Dong MD Aftercare following surgery of the skin and subcutaneous tissue, NEC Abscess, perirectal 566 Active Hira roman ASSOCIATION EXECUTIVE Abscess of anal and rectal regions , INCIDENTAL PROBLEM ICD-V22.2 Inacti ve Abdirahman [...] Rios MD 201 11/08/15 Pelvic pain ICD-789.09 Jose M Rios MD Vaccination against influenza ICD-V04.81 Inacti ve Abdirahman Rios MD Contact dermatitis due to poison marilee ICD-692.6 Jose M Rios MD Back strain ICD-847.9 Jose M Rios MD Sinusitis, acute ICD-461.9 Jose M Casas MD AFTERCARE FOLLOW SURGERY SKIN&SUBCUT TISSUE NEC ICD-V58.77 Jose M Rios MD Impetigo ICD-684 Jose M Rios MD 08/24 Medication List Medication Instructions Start Date Stop Date Generic Name NDC Status Provider Patient Instruction [id number] 50-325-40 MG ORAL CAPS 1-2 po TID CO N Headache [id number] Active Abdirahman Rios MD Active AUGMENTIN 875-125 MG TAB 1 tab by mouth twice daily with food 20 21/10/13 AMOXICILLIN-POT CLAVULANATE 55223675956 No Longer Active Ursula Moser APRN Active PERCOCET 10-325 MG ORAL TABS 1 every 4 hours as needed OXYCODONE-ACETAMINOPHEN 16611134844 Active Hira Moser APRN Active PROAIR HFA 108 (90 BASE) MCG/ACT AERS 2 puff q 4-6 hrs PRN 01/24 ALBUTEROL SULFATE 45456615121 No Longer Active Kalpesh Dong MD Active ALPRAZOLAM 0.5 MG TABS 1 po BID PRN Anxiety ALPRA ZOLAM 67162359454 Active Abdirahman Rios MD Active EMLA 2.5-2.5 % EXT CREA apply to skin lesion q 6 hours, prn LIDOCAINE-PRILOCAINE 42791412984 Active Hira Moser APRN Active CYCLOBENZAPRINE HCL 10 MG TABS 1 tablet by mouth three times daily as needed for muscle spasm/pain CYCLOBENZAPRINE HCL 29543219496 Active Abdirahman Rios MD Active PREDNISONE 20 MG TAB 2 tabs daily for 3 days, 1 t ab daily for 3 days, 1/2 tab daily for 2 days PREDNISONE 91758324830 No Longer Active Abdirahman Rios MD Active KEFLEX 500 MG CAP 1 po qid CEPHALEXIN 790815988 20 No Longer Active Kalpesh Dong MD Active PERCOCET 5-325 MG TAB 1 every 6 hours as needed OXYCODONE-ACETAMINOPHEN 43543958947 No Longer Active Shola MCGILL Active LC-5 LIDOCAINE 5 % CREA apply 1 time daily to affected area 2013 LIDOCAINE (ANORECTAL) 38067898915 No Longer Active Hira muniz APRN Active HYDROCODONE-ACETAMINOPHEN 5-325 MG TABS 2 tablets by m outh every 8 hours as needed for pain HYDROCODONE-ACETAMINOPHEN 44431822017 Acti ve Rajni Craigkjagjit ASSOCIATION EXECUTIVE Active HYDROCODONE-ACETAMINOPHEN 10-325 MG TABS 1 by mouth ev chaka 8 hours as needed for pain HYDROCODONE-ACETAMINOPHEN 66129472332 No Longer Active Jillina Frazell ASSOCIATION EXECUTIVE Active LORATADINE 10 MG TABS 1 tablet by mouth daily L ORATADINE 06415677963 No Longer Active Jillina Frazell ASSOCIATION EXECUTIVE Active DIFLUCAN 150 MG TAB 1 qODay x 2 doses FLUCONAZO LE 06356168170 No Longer Active Jillina Frazell ASSOCIATION EXECUTIVE Active CYCLOBENZAPRINE HCL 10 MG TABS 1/2 - 1 tab PO tid PRN back p ain, muscle spasm CYCLOBENZAPRINE HCL 81987933918 No Longer Active Karen siri Frazell ASSOCIATION EXECUTIVE Active AUGMENTIN 875-125 MG TAB 1 tab by mouth twice daily with food 20 22/05/07 AMOXICILLIN-POT CLAVULANATE 61152620383 No Longer Active Loida Rios MD Active MOBIC 15 MG TABS 1 tab daily MELOXICAM 540078875 14 No Longer Active Abdirahman Rios MD Active PERCOCET 7.5-325 MG TABS 1 PO tid PRN pain OXYCODONE-ACETAMINOPHEN 71976846341 No Longer Active Abdirahman Rios MD Active LIDODERM 5 % PTCH One patch to painful area CO N. On for 12 hrs, off for 12 hrs. LIDOCAINE 19068217142 No Longer Active Abdirahman Rios MD Active PERCOCET 7.5-325 MG TABS 1 PO q 8 hrs PRN pain OXYCODONE-ACETAMINOPHEN 30750105486 No Longer Active Shola MCGILL Active HYDROCODONE-ACETAMINOPHEN 7.5-325 MG TABS 1 by mouth e very 6 hours as needed for pain HYDROCODONE-ACETAMINOPHEN 40326463007 No Longer Active Good Julian MD Active CLINDAMYCIN HCL 300 MG CAPS 1 po QID x 7 days CLINDAMYCIN HCL 41803614551 No Longer Active Abdirahman Rios MD Activ e BACTRIM DS 800-160 MG TABS 1 po BID x 7 days 5 SULFAMETHOXAZOLE-TRIMETHOPRIM 81049459658 No Longer Active Abdirahman Rios MD Active ENDOCET 10-325 MG TABS 1 q 6 hr prn OXYCODONE-ACETAMINOPHEN 10900325848 No Longer Active Abdirahman Rios MD Active IBUPROFEN 800 MG TABS 1 tid prn IBUPROFEN 514024 33575 No Longer Active Abdirahman Rios MD Active BACTRIM DS 800-160 MG TABS by mouth twice a day 11/05 SULFAMETHOXAZOLE-TRIMETHOPRIM 41274630287 No Longer Active Good Julian MD Active HYDROCODONE-ACETAMINOPHEN 7.5-325 MG TABS 1 four times a day as needed for pain HYDROCODONE-ACETAMINOPHEN 50660410425 No Longer Activ e Good Julian MD Active KEFLEX 500 MG CAP 1 tab po tid CEPHALEXIN 898342 29516 No Longer Active Hira Moser APRN Active IBUPROFEN 800 MG TAB 1 pill three times daily as needed for pain IBUPROFEN 31601928068 No Longer Active Kalpesh Dong MD Active PROMETHAZINE-CODEINE 6.25-10 MG/5ML SYRP 1 tsp every 6 hrs prn c ough PROMETHAZINE-CODEINE 35820249149 No Longer Active Kalpesh Carr Active HYDROCODONE-ACETAMINOPHEN 5-325 MG TABS 1 tab by mouth every 6 hours as needed HYDROCODONE-ACETAMINOPHEN 09561406223 No Longer Activ e Shola MCGILL Active CEPHALEXIN 500 MG CAPS 1 PO bid x 7 days CEPHAL EXIN 78501707468 No Longer Active Shola MCGILL Active BACTRIM DS 800-160 MG TAB 1 tab by mouth twice daily 2 TRIMETHOPRIM-SULFAMETHOXAZOLE 38576487017 No Longer Active Kalpesh Dong MD Active HYDROCODONE-ACETAMINOPHEN 5-325 MG TABS 1 PO tid PRN pain 5 HYDROCODONE-ACETAMINOPHEN 07844187554 No Longer Active Abhinav Galvan MD Active IMPLANON 68 MG IMPL IMPLANTED IN LEFT ARM ETONO GESTREL 69910975283 No Longer Active Hira Moser APRN Active AMOXICILLIN 500 MG TABS 2 tabs PO bid x 10 d AM OXICILLIN 26118977033 No Longer Active Kalpesh Dogn MD Active LEVAQUIN 500 MG TABS 1 PO q day x 7 days LEVOFL OXACIN 45387169130 No Longer Active Shola MCGILL Active AMITRIPTYLINE HCL 25 MG TAB 1 tab by mouth daily 60 minutes before bedtime AMITRIPTYLINE HCL 84489016523 No Longer Active Shola MCGILL Active LORTAB 5 5-500 MG TABS 1/2 to 1 tablet by mouth go ry 6 hours as needed for pain HYDROCODONE-ACETAMINOPHEN 55256409958 No Longer Active Shola MCGILL Active CEPHALEXIN 500 MG TABS Take one by mouth four times daily, morning, noon, early evening and bedtime. CEPHALEXIN 56992083236 No Long er Active Hira Moser APRN Active TYLENOL/CODEINE #3 300-30 MG TAB 1-2 po q6hr PRN Pain ACETAMINOPHEN-CODEINE 74378789850 No Longer Active Edilberto Marino DO Active PRISTIQ 50 MG [id number] 1 po qd DESVENLAFAXI NE SUCCINATE 80359830014 No Longer Active Edilberto Marino DO Active PENICILLIN V POTASSIUM 500 MG TAB 1 four times a day 2 PENICILLIN V POTASSIUM 76833274687 No Longer Active Edilberto Marino DO Active DOXYCYCLINE HYCLATE 100 MG CAPS Take one (1) tablet by mouth twice a day DOXYCYCLINE HYCLATE 56560639455 No Longer Active Ronnie Galvan MD Active HYDROCODONE-ACETAMINOPHEN 5-325 MG TABS 1 po q 6hr PRN Pain 2011 HYDROCODONE-ACETAMINOPHEN 82075470413 No Longer Active Patri joan Perez RN Active BACTRIM DS 800-160 MG TAB 1 tab by mouth twice daily 2 TRIMETHOPRIM-SULFAMETHOXAZOLE 04750279350 No Longer Active Kalpesh Dong MD Active LORTAB 5 5-500 MG TABS 1/2 to 1 tablet by mouth go ry 4 hours as needed for pain HYDROCODONE-ACETAMINOPHEN 77539445543 No Longer Active Kalpesh Dong MD Active GENERESS FE 0.8-25 MG-MCG CHEW Take one by mouth daily NORETHIN-ETH ESTRADIOL-FE 84754834293 No Longer Active Kalpesh Dong MD Active HYDROCODONE-ACETAMINOPHEN 7.5-500 MG TABS 1-2 every 4 hours as needed HYDROCODONE-ACETAMINOPHEN 91982124488 No Longer Activ e Kalpesh Dong MD Active FERROUS SULFATE 325 (65 FE) MG TABS 1 tablet by mouth twice yung y FERROUS SULFATE 60710891846 No Longer Active Kalpesh Dong MD Active IBUPROFEN 600 MG TAB 1 po q6-8hr PRN IBUPROFEN 39756017226 No Longer Active Kalpesh Dong MD Active SPIRONOLACTONE 25 MG TAB 1 tablet by mouth daily 01/22 SPIRONOLACTONE 56854904432 No Longer Active Kalpesh Dong MD Acti ve HYDROCODONE-ACETAMINOPHEN 7.5-325 MG TABS 1 po QID PRN Pain 2011 HYDROCODONE-ACETAMINOPHEN 97956469762 No Longer Active Kalpesh Dong MD Active CLINDAMYCIN HCL 300 MG CAPS 1 po q6hr x 7 days CLINDAMYCIN HCL 35623113876 No Longer Active Edilberto Marino DO Active PREDNISONE 20 MG TAB 2 tabs daily for 4 days, 1 t ab daily for 4 days, 1/2 tab daily for 4 days PREDNISONE 43229488893 No Longer Active Edilberto Marino DO Active PERCOCET 5-325 MG TABS 1 tablet by mouth every 6 hours as ne eded for pain OXYCODONE-ACETAMINOPHEN 08549494337 No Longer Active Abdirahman Rios MD Active VITAMINS TABS Take one by mouth daily MV & MIN W/FE-FA TABS 34289979688 No Longer Active Abdirahman Rios MD Active LUIS 3-0.02 MG TABS 1 tablet by mouth daily as directed DROSPIRENONE-ETHINYL ESTRADIOL 76878867148 No Longer Active Abdirahman Rios MD Active LORATADINE 10 MG TABS 1 tablet by mouth daily L ORATADINE 54030772260 No Longer Active Kalpesh Dong MD Active HYDROCODONE-ACETAMINOPHEN 5-325 MG TABS 1 po q 6hr PRN Pain 2010 HYDROCODONE-ACETAMINOPHEN 38040303803 No Longer Active Edilberto Marino DO Active BACTRIM DS 800-160 MG TAB 1 tab by mouth twice daily 2 TRIMETHOPRIM-SULFAMETHOXAZOLE 57759718777 No Longer Active Abdirahman Rios MD Active 28-0.8 MG TABS Take one by mouth daily 09/20 VIT-FE FUMARATE-FA 93407989652 No Longer Active Abdirahman Rios MD Active CIPRO 500 MG TAB 1 tablet by mouth twice daily CIPROFLOXACIN HCL 95483262881 No Longer Active Abdirahman Rios MD Active BENADRYL 25 MG CAP 1 po q8hr PRN Congestion DIPHENHYDRAMINE HCL 23666706270 No Longer Active Abdirahman Rios MD Active ZOLOFT 50 MG TAB 1 po qd SERTRALINE HCL 328640 34943 No Longer Active Abdirahman Rios MD Active AMOXICILLIN 875 MG TABS 1 tab by mouth twice daily 201 08/09/13 AMOXICILLIN 99740635860 No Longer Active Abdirahman Rios MD Activ e AMOXICILLIN 875 MG TABS 1 tab by mouth twice daily 201 07/19/27 AMOXICILLIN 81678047451 No Longer Active Abdirahman Rios MD Activ e BACTRIM DS 800-160 MG TAB 2 tab by mouth twice daily 2 TRIMETHOPRIM-SULFAMETHOXAZOLE 42551197643 No Longer Active Abdirahman Rios MD Active KEFLEX 500 MG CAP 1 po tid x 10 days CEPHALEXIN 91873994934 No Longer Active Abdirahman Rios MD Active AMOXICILLIN 875 MG TABS 1 tab by mouth twice daily 201 07/18/07 AMOXICILLIN 53160870548 No Longer Active Abdirahman Rios MD Activ e BACTRIM DS 800-160 MG TAB 2 tab by mouth twice daily 2 BACTRIM DS 800-160 MG TAB TRIMETHOPRIM-SULFAMETHOXAZOLE Inactive ZOLOFT 50 MG TAB 1 po qd ZOLOFT 50 MG TAB 3129 41 SERTRALINE HCL Inactive BENADRYL 25 MG CAP 1 po q8hr PRN Congestion BENADRYL 25 MG CAP 6722315 DIPHENHYDRAMINE HCL Inactive 28-0.8 MG TABS Take one by mouth daily 09/20 28-0.8 MG TABS VIT-FE FUMARATE-FA Inactive HYDROCODONE-ACETAMINOPHEN 5-325 MG TABS 1 po q 6hr PRN Pain 2010 HYDROCODONE-ACETAMINOPHEN 5-325 MG TABS 489205 HYDROCODONE-ACETAMINOPHEN Inactive LORATADINE 10 MG TABS 1 tablet by mouth daily LORATADINE 10 MG TABS 111347 LORATADINE Inactive LUIS 3-0.02 MG TABS 1 tablet by mouth daily as directed LUIS 3-0.02 MG TABS DROSPIRENONE-ETHINYL ESTRADIOL Inactive VITAMINS TABS Take one by mouth daily VITAMINS TABS MV & MIN W/FE-FA TABS Inactive PERCOCET 5-325 MG TABS 1 tablet by mouth every 6 hours as ne eded for pain PERCOCET 5-325 MG TABS 1729143 OXYCODONE-ACETAMIN OPHEN Inactive PREDNISONE 20 MG TAB 2 tabs daily for 4 days, 1 t ab daily for 4 days, 1/2 tab daily for 4 days PREDNISONE 20 MG TAB 108055 PREDNISON E Inactive CLINDAMYCIN HCL 300 MG CAPS 1 po q6hr x 7 days CLINDAMYCIN HCL 300 MG CAPS 598123 CLINDAMYCIN HCL Inactive HYDROCODONE-ACETAMINOPHEN 7.5-325 MG TABS 1 po QID PRN Pain 2011 HYDROCODONE-ACETAMINOPHEN 7.5-325 MG TABS 375509 HYDROCODONE-ACETAMINOPHEN Inactive SPIRONOLACTONE 25 MG TAB 1 tablet by mouth daily 01/22 SPIRONOLACTONE 25 MG TAB 616886 SPIRONOLACTONE Inactive IBUPROFEN 600 MG TAB 1 po q6-8hr PRN IBUPROFEN 600 MG TAB 850015 IBUPROFEN Inactive FERROUS SULFATE 325 (65 FE) MG TABS 1 tablet by mouth twice yung y FERROUS SULFATE 325 (65 FE) MG TABS 964076 FERROUS SULF ATE Inactive HYDROCODONE-ACETAMINOPHEN 7.5-500 MG [...] PRN Pain 2011 HYDROCODONE-ACETAMINOPHEN 5-325 MG TABS 547800 HYDROCODONE-ACETAMINOPHEN Inactive DOXYCYCLINE HYCLATE 100 MG CAPS Take one (1) tablet by mouth twice a day DOXYCYCLINE HYCLATE 100 MG CAPS 136550 DOXYCYCLINE HYCLATE Inactive PENICILLIN V POTASSIUM 500 MG TAB 1 four times a day 2 PENICILLIN V POTASSIUM 500 MG TAB 628006 PENICILLIN V POTASSIUM Siri ctive PRISTIQ 50 MG [id number] 1 po qd PRISTIQ 50 MG [id number] DESVENLAFAXINE SUCCINATE Inactive TYLENOL/CODEINE #3 300-30 MG TAB 1-2 po q6hr PRN Pain TYLENOL/CODEINE #3 300-30 MG TAB 039519 ACETAMINOPHEN-CODEINE Inact krishna CEPHALEXIN 500 MG TABS Take one by mouth four times daily, morning, noon, early evening and bedtime. CEPHALEXIN 500 MG TABS 396796 CEPHALEXIN Inactive LORTAB 5 5-500 MG TABS 1/2 to 1 tablet by mouth go ry 6 hours as needed for pain LORTAB 5 5-500 MG TABS HYDROCODONE-A CETAMINOPHEN Inactive AMITRIPTYLINE HCL 25 MG TAB 1 tab by mouth daily 60 minutes before bedtime AMITRIPTYLINE HCL 25 MG TAB 144144 AMITRIPTYLINE HCL Inactive AMOXICILLIN 500 MG TABS 2 tabs PO bid x 10 d 7 AMOXICILLIN 500 MG TABS 736788 AMOXICILLIN Inactive IMPLANON 68 MG IMPL IMPLANTED IN LEFT ARM IMPLANON 68 MG IMPL ETONOGESTREL Inactive HYDROCODONE-ACETAMINOPHEN 5-325 MG TABS 1 PO tid PRN pain 5 HYDROCODONE-ACETAMINOPHEN 5-325 MG TABS 937855 HYDROCODONE-ACETAMIN OPHEN Inactive BACTRIM DS 800-160 MG TAB 1 tab by mouth twice daily 2 BACTRIM DS 800-160 MG TAB TRIMETHOPRIM-SULFAMETHOXAZOLE Inac tive CEPHALEXIN 500 MG CAPS 1 PO bid x 7 days CEPHALEXIN 500 MG CAPS 943372 CEPHALEXIN Inactive HYDROCODONE-ACETAMINOPHEN 5-325 MG TABS 1 tab by mouth every 6 hours as needed HYDROCODONE-ACETAMINOPHEN 5-325 MG TABS 876237 HYDROCODONE-ACETAMINOPHEN Inactive PROMETHAZINE-CODEINE 6.25-10 MG/5ML SYRP 1 tsp every 6 hrs prn c ough PROMETHAZINE-CODEINE 6.25-10 MG/5ML SYRP 735506 PROMETH AZINE-CODEINE Inactive IBUPROFEN 800 MG TAB 1 pill three times daily as needed for pain IBUPROFEN 800 MG TAB 618877 IBUPROFEN Inactive KEFLEX 500 MG CAP 1 tab po tid KEFLEX 500 MG CAP 743481 CEPHALEXIN Inactive HYDROCODONE-ACETAMINOPHEN 7.5-325 MG TABS 1 four times a day as needed for pain HYDROCODONE-ACETAMINOPHEN 7.5-325 MG TABS 678886 HYDROCODONE-ACETAMINOPHEN Inactive BACTRIM DS 800-160 MG TABS by mouth twice a day 11/05 BACTRIM DS 800-160 MG TABS SULFAMETHOXAZOLE-TRIMETHOPRIM Inactive IBUPROFEN 800 MG TABS 1 tid prn IBUPROFEN 800 MG TABS 834860 IBUPROFEN Inactive ENDOCET 10-325 MG TABS 1 q 6 hr prn ENDOC ET 10-325 MG TABS 7197668 OXYCODONE-ACETAMINOPHEN Inactive HYDROCODONE-ACETAMINOPHEN 7.5-325 MG TABS 1 by mouth e very 6 hours as needed for pain HYDROCODONE-ACETAMINOPHEN 7.5-325 MG TABS 244498 HYDROCODONE-ACETAMINOPHEN Inactive PERCOCET 7.5-325 MG TABS 1 PO q 8 hrs PRN pain PERCOCET 7.5-325 MG TABS 0304568 OXYCODONE-ACETAMINOPHEN Inactive LIDODERM 5 % PTCH One patch to painful area CO N. On for 12 hrs, off for 12 hrs. LIDODERM 5 % PTCH 9463185 LIDOCAINE Inactiv e PERCOCET 7.5-325 MG TABS 1 PO tid PRN pain PERCOCET 7.5- 325 MG TABS 2738338 OXYCODONE-ACETAMINOPHEN Inactive MOBIC 15 MG TABS 1 tab daily MOBIC 15 MG TABS 15 2695 MELOXICAM Inactive CYCLOBENZAPRINE HCL 10 MG TABS 1/2 - 1 tab PO tid PRN back p ain, muscle spasm CYCLOBENZAPRINE HCL 10 MG TABS 496637 CYCLOBENZA JOSEPH HCL Inactive LORATADINE 10 MG TABS 1 tablet by mouth daily LORATADINE 10 MG TABS 633422 LORATADINE Inactive HYDROCODONE-ACETAMINOPHEN 10-325 MG TABS 1 by mouth ev chaka 8 hours as needed for pain HYDROCODONE-ACETAMINOPHEN 10-325 MG TABS 129594 HYDROCODONE-ACETAMINOPHEN Inactive LC-5 LIDOCAINE 5 % CREA apply 1 time daily to affected area 2013 LC-5 LIDOCAINE 5 % CREA LIDOCAINE (ANORECTAL) In active PERCOCET 5-325 MG TAB 1 every 6 hours as needed PERCOCET 5-325 MG TAB 3624712 OXYCODONE-ACETAMINOPHEN Inactive KEFLEX 500 MG CAP 1 po qid KEFLEX 500 MG CAP 30 9114 CEPHALEXIN Inactive PROAIR HFA 108 (90 BASE) MCG/ACT AERS 2 puff q 4-6 hrs PRN 01/24 PROAIR HFA 108 (90 BASE) MCG/ACT AERS ALBUTEROL SULFATE Inactive AMOXICILLIN 875 MG TABS 1 tab by mouth twice daily 201 07/18/07 AMOXICILLIN 875 MG TABS 097268 AMOXICILLIN Inactive KEFLEX 500 MG CAP 1 po tid x 10 days KEFLEX 500 MG CAP 967807 CEPHALEXIN Inactive AMOXICILLIN 875 MG TABS 1 tab by mouth twice daily 201 07/19/27 AMOXICILLIN 875 MG TABS 303180 AMOXICILLIN Inactive AMOXICILLIN 875 MG TABS 1 tab by mouth twice daily 201 08/09/13 AMOXICILLIN 875 MG TABS 709457 AMOXICILLIN Inactive CIPRO 500 MG TAB 1 tablet by mouth twice daily CIPRO 500 MG TAB 919028 CIPROFLOXACIN HCL Inactive BACTRIM DS 800-160 MG TAB 1 tab by mouth twice daily 2 BACTRIM DS 800-160 MG TAB TRIMETHOPRIM-SULFAMETHOXAZOLE Inac tive LEVAQUIN 500 MG TABS 1 PO q day x 7 days LEVAQUIN 500 MG TABS 710813 LEVOFLOXACIN Inactive CLINDAMYCIN HCL 300 MG CAPS 1 po QID x 7 days CLINDAMYCIN HCL 300 MG CAPS 648678 CLINDAMYCIN HCL Inactive AUGMENTIN 875-125 MG TAB 1 tab by mouth twice daily with food 20 22/05/07 AUGMENTIN 875-125 MG TAB 954063 AMOXICILLIN-POT CLAVULA [place] Inactive DIFLUCAN 150 MG TAB 1 qODay x 2 doses DIFLUCAN 150 MG TAB 019522 FLUCONAZOLE Inactive PREDNISONE 20 MG TAB 2 tabs daily for 3 days, 1 t ab daily for 3 days, 1/2 tab daily for 2 days PREDNISONE 20 MG TAB 016335 PREDNISON E Inactive AUGMENTIN 875-125 MG TAB 1 tab by mouth twice daily with food 21/10/13 AUGMENTIN 875-125 MG TAB 827125 AMOXICILLIN-POT CLAVULA [place] Inactive Advance Directives Directive Description Start Date PERMISSION TO SHARE Immunizations Vaccine Administration Date Value Standard Alf cription Seasonal influenza vaccine, injectable, containing preservative, for > 3 years old (Afluria, FluLaval, Fluzone, Fluvirin, Fluarix, Agriflu(>= 18 yo)) Fluzone (>3 yrs.) [[id number]] Influenza, seasonal, inject able Seasonal influenza vaccine, injectable, preservative free, for > 3 years old (Afluria, FluLaval, Fluzone, Fluvirin, Fluarix, Agriflu(>= 18 yo)) Fluzone preservative free (>3 yrs.) [[id number]] Influenza, seasonal, injectable, preservative free Seasonal influenza vaccine, injectable, containing preservative, for > 3 years old (Afluria, FluLaval, Fluzone, Fluvirin, Fluarix, Agriflu(>= 18 yo)) Fluzone (>3 yrs.) [[id number]] Influenza, seasonal, inject able Seasonal influenza vaccine, injectable, containing preservative, for > 3 years old (Afluria, FluLaval, Fluzone, Fluvirin, Fluarix, Agriflu(>= 18 yo)) Fluzone (>3 yrs.) [[id number]] Influenza, seasonal, inject able dT (Diphtheria and Tetanus) booster given Histor ical Td(adult) unspecified formulation Vital Signs Date Name Value Unit Range Description blood pressure, diastolic - 8462-4 82 mm[Hg] [...] - 3141-9 235.7 [lb_av] Weigh t Measured blood pressure, diastolic - 8462-4 93 mm[Hg] BP ribeiro blood pressure, systolic - 8480-6 128 mm[Hg] BP sys height E&M - 8302-2 66 [in_us] Bdy h eight pulse rate E&M - 8867-4 90 /min H eart rate temperature E&M 96.7 [degF] Body temp erature weight E&M - 3141-9 240 [lb_av] Weigh t Measured Diagnostic Results Date Name Value Unit Range Description Office Visit: CN bladder problems - Mariah [...] negative Encounters Code Encounter Date Provider Facility CPT-53216 Level 2 Est. Patient 07:49:32 CDT Kalpesh goins MD [facility] CPT-99302 Level 3 New Patient 15:47:11 SALES 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 Bj huber MD [facility] CPT-84771 Level 4 Est. Patient 14:37:38 SALES 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 Abdirahman Rios MD [facility] CPT-98064 Level 2 Est. Patient 13:32:17 SALES 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 Kalpesh goins MD [facility] CPT-55199 Level 3 Est. Patient 17:32:57 SALES 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 Edilberto tiwari [facility] CPT-03282 Level 3 Est. Patient 17:22:33 SALES 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 Edilberto W L ee DO [facility] CPT-77578 Level 2 Est. Patient 16:57:09 SALES 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 Kalpesh goins MD [facility]-62560 Level 3 Est. Patient 14:03:08 SALES 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 Abdirahman Rios MD [facility] CPT-18668 Level 3 Est. Patient 18:12:34 CDT Shola [facility] CPT-20090 Level 3 Est. Patient 19:34:46 CDT Shola Wright [facility] CPT-12736 Level 3 Est. Patient 14:19:37 CDT Abdirahman Rios MD [facility]-70299 Level 3 Est. Patient 14:11:58 CDT Kalpesh goins MD [facility]-20549 Level 3 Est. Patient 16:50:00 [facility] Patient 17:11:32 SALES 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 Brandie bates MD PhD [facility] CPT-90811 Level 3 Est. Patient 16:31:47 SALES 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 Shola Wright [facility] CPT-30213 Level 3 Est. Patient 17:51:10 SALES 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 Abhinav Galvan MD [facility] CPT-15717 Level 4 Est. Patient 12:54:56 SALES 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 Kalpesh goins MD [facility]-20167 Level 4 Est. Patient 12:53:56 SALES 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 Kalpesh goins MD [facility]-61601 Level 3 Est. Patient 17:56:58 CDT Shola Wright [facility] CPT-61638 Level 3 Est. Patient 14:26:20 CDT Janak butcher [facility] CPT-34950 Level 3 Est. Patient 09:38:41 CDT Shola MCGILL [facility] CPT-83047 Level 3 Est. Patient 14:45:26 CDT Edilberto tiwari [facility] CPT-53669 Level 3 Est. Patient 10:51:33 [facility] Level 3 Est. Patient 11:57:55 SALES 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 Shola Wright [facility] CPT-94146 Level 3 Est. Patient 09:53:33 SALES 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 Edilberto tiwari [facility] CPT-83540 Level 3 Est. Patient 14:42:54 SALES 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 Abhinav Galvan MD [facility]-71172 Level 3 Est. Patient 15:10:02 CDT Janak Stevenamira guadalupe [facility] CPT-08440 Level 3 Est. Patient 15:20:20 CDT Theo dennis MD [facility] CPT-99378 Level 2 Est. Patient 14:08:57 CDT Kalpesh goins MD [facility] CPT-45820 Level 3 Est. Patient 13:56:19 CDT Abdirahman Rios MD [facility] CPT-98071 Level 3 Est. Patient 13:59:37 CDT Abdirahman Rios MD [facility] CPT-30707 Level 2 Est. Patient 14:44:59 CDT Kalpesh goins MD [facility]-87773 Level 3 Est. Patient 06:06:23 CDT Edilberto tiwari [facility] CPT-12118 Level 3 Est. Patient 15:23:54 CDT Abdirahman Rios MD [facility]-01608 Level 3 Est. Patient 15:43:49 CDT Abdirahman Rios MD [facility] CPT-62205 Level 3 Est. Patient 12:46:47 SALES 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 Abdirahman Rios MD [facility] CPT-19383 Level 3 Est. Patient 08:13:35 SAL[employer] 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 Abdirahman Rios MD [facility] CPT-39377 Level 2 Est. Patient 09:36:42 SAL[employer] 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 Abdirahman Rios MD [facility] CPT-02921 Level 3 Est. Patient 10:56:43 CDT Abdirahman Rios MD [facility] CPT-04683 Level 3 Est. Patient 18:24:52 CDT Abdirahman Rios MD [facility] CPT-25068 Level 3 Est. 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 CPT-J0696 Rocephin 1000 mg (Ceftriaxone) 17:22:33 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 CPT-67315 Postop F/U Visit 18:41:07 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 CPT-54164 Postop F/U Visit 08:19:08 [employer] 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 CPT-57017 Immunization Single Admin 16:41:53 CDT 2013 CPT-34705 Fluzone Quadrivalent Intramuscular Suspe nsion 0.5 ML 16:41:53 CDT CPT-OV Office Visit 16:39:18 CDT CPT-OV Office Visit 16:16:36 CDT CPT-OV Office Visit 15:34:48 CDT CPT-07756 Postop F/U Visit 14:50:12 CDT CPT-31002 Postop F/U Visit 14:41:10 CDT CPT-28633 Venipuncture Draw Fee 11:38:04 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 CPT-06605 Postop F/U Visit 19:02:59 [employer] 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 CPT-30829 Postop F/U Visit 12:04:54 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 CPT-67227 Administration single or combination vac cine inc oral 15:56:43 CDT CPT-58125 Influenza split virus > age 3 15:56:43 CDT CPT-60680 Hand comp min 3V 14:25:19 CDT CPT-11938 Postop F/U Visit 21:40:51 CDT CPT-42163 Postop F/U Visit 10:58:43 CDT CPT-90341 Administration single or combination vac cine inc oral 12:33:54 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 CPT-80597 Influenza Preservative Free split virus >age 3 12:33:54 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 CPT-41519 Administration single or combination vac cine inc oral 09:30:51 CDT CPT-06665 Influenza split virus > age 3 09:30:51 CDT CPT-85268 Postop F/U Visit 15:14:53 CDT CPT-87687 Postop F/U Visit 13:50:14 CDT CPT-47274 Postop F/U Visit 13:34:52 CDT CPT-OV Office Visit 16:55:03 CDT CPT-80962 Rhododendron of cervix w bx ECC 13:32:50 CDT 10/19 CPT-J1885 Toradol 60 mg (Ketorolac) 15:31:59 CDT 2011 CPT-J1885 Toradol 60 mg (Ketorolac) 15:23:54 CDT 2011 CPT-91338 Visit 11:34:37 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 CPT-49205 Visit 10:52:39 [employer] 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 CPT-61729 Visit 10:12:02 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 CPT-17892 Visit 11:22:43 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 CPT-57081 Visit 11:24:12 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 CPT-01530 Visit 10:47:05 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 CPT-OV Office Visit 10:26:16 [employer] 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 CPT-OV Office Visit 15:34:31 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 CPT-44033 Visit 10:42:08 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 CPT-98254 Visit 10:52:45 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 CPT-000 Give Appropriate Flu Vaccine 16:56:41 CDT 2 CPT-40655 Administration single or combination vac cine inc oral 10:33:21 CDT CPT-62291 Influenza split virus > age 3 10:33:21 CDT CPT-14959 Visit 13:23:09 CDT CPT-26710 Visit 18:24:52 CDT CPT-45645 Sono OB comp > 14 weeks 12:07:49 CDT 04/07
--- OUTSIDE RECORDS SUMMARY | 2020-01-18 15:50 | XMS REPORT | Clinical Summary ---
Author Author Admin, Jeri Cabrera [email or web address] Address Unknown Phone Unavailable Allergies, Adverse Reactions, [...] Acute bronchitis BACK PAIN 724.5 Resolved Good Julina MD Backache, unspecified BACK PAIN, LUMBAR, CHRONIC [...] Chronic pain syndrome 338.4 Active Rajni Alcazar BROKER Chronic pain syndrome AFTERCARE FOLLOW SURGERY SKIN&SUBCUT [...] Generic Name NDC Status Provider Patient Instruction [id number] 50-325-40 MG ORAL TABS 1 po TID PRN Headaches [id number] 18857480155 Active Abdirahman owen MD Active CHANTIX STARTING MONTH MARGARITA 0.5 MG X 11 & 1 MG X 42 TAB S 0.5mg daily for 3 days, then 0.5mg BID for 4 days, then 1mg BID VARENICL INE TARTRATE 46423095237 Active Abdirahman Rios MD Active AMOXICILLIN 500 MG CAPS 2 po BID x 10 days AMOX ICILLIN 37289682893 Active Abdirahman Rios MD Active PROMETHAZINE HCL 25 MG TABS 1 four times a day as needed for nausea/vomiting PROMETHAZINE HCL 08544566894 No Longer Active Abdirahman Rios MD Active LC-4 LIDOCAINE 4 % EXT CREA apply q 6 hours, prn 08/03 LIDOCAINE 23262056982 No Longer Active Kalpesh Dong MD Active PERCOCET 10-325 MG TABS 1 tablet every 8 hours as needed for antonia n OXYCODONE-ACETAMINOPHEN 79867825495 No Longer Active Kalpesh Dong MD Active HYDROCODONE-ACETAMINOPHEN 5-325 MG TABS 1 tab by mouth every 6 hours as needed for pain HYDROCODONE-ACETAMINOPHEN 88465195294 No Longer Active Kalpesh Dong MD Active PERCOCET 10-325 MG ORAL TABS 1 every 4 hous as needed OXYCODONE-ACETAMINOPHEN 10061662220 Active Hira Moser APRN Active GLYDO 2 % EXT GEL apply to painful areas as needed LIDOCAINE HCL 78696431620 Active Kalpesh Dong MD Active LC-4 LIDOCAINE 4 % EXT CREA apply to painful area every 12 h ours or as needed LIDOCAINE 77220099961 Active Kalpesh Dong MD Active AUGMENTIN 875-125 MG TAB 1 tab by mouth twice daily with food 20 23/05/16 AMOXICILLIN-POT CLAVULANATE 62644472088 No Longer Active Lizeth hi Yokum BROKER 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 FLUTICASONE PROPIONATE 18440978518 No Longer Ac tive Rajni Yokum BROKER Active PERCOCET 10-325 MG ORAL TABS take 1 tab by mouth q 4hours as needed for pain OXYCODONE-ACETAMINOPHEN 54392995146 No Longer Active Rajni Yokum BROKER Active PERCOCET 10-325 MG ORAL TABS one every 6 hours prn pain OXYCODONE-ACETAMINOPHEN 21637589281 No Longer Active Rajni Yokum BROKER Active IBUPROFEN 800 MG TABS 1 tab po tid, with food I BUPROFEN 89437374881 Active Hira Moser BROKER Active DICLOFENAC SODIUM 50 MG TBEC 1 tablet by mouth four times da tom PRN Pain DICLOFENAC SODIUM 26525459484 No Longer Active Rajni Yokum BROKER Active VIIBRYD 10 & 20 & 40 MG KIT 1 po qd as directed 07/24 VILAZODONE HCL 31174442176 No Longer Active Rajni Yokum BROKER Active ONDANSETRON 4 MG TBDP 1 q4h PRN nausea ONDANSET KELBY 81266535444 No Longer Active Rajni Yokum BROKER Active PERCOCET 10-325 MG TABS 1 tablet every 8 hours as needed for antonia n OXYCODONE-ACETAMINOPHEN 18163040747 No Longer Active Rajni Y okum BROKER Active HYDROCODONE-ACETAMINOPHEN 5-325 MG TABS 1 po TID PRN Pain 9 HYDROCODONE-ACETAMINOPHEN 15962384278 No Longer Active Abdirahman Rios MD Active [id number] 50-325-40 MG ORAL CAPS 1-2 po TID GA N Headache [id number] 35989745704 No Longer Act krishna Kalpesh Dong MD Active ALPRAZOLAM 0.5 MG TABS 1 po BID PRN Anxiety ALP RAZOLAM 52177898637 No Longer Active Kalpesh Dong MD Active TRAZODONE HCL 100 MG TAB 0.5 to 1 po qHS PRN Insomnia TRAZODONE HCL 75422365949 No Longer Active Kalpesh Dong MD Activ e HYDROCODONE-ACETAMINOPHEN 5-325 MG TABS 1 po q6hr PRN Pain 04/09 HYDROCODONE-ACETAMINOPHEN 85229366251 No Longer Active Kalpesh Dong MD Active CYMBALTA 30 MG CPEP 1 cap by mouth daily DULOXE CLEO HCL 75395049030 No Longer Active Abdirahman Rios MD Active IBUPROFEN 600 MG ORAL TABS 1 by mouth twice a day 2014 IBUPROFEN 87193311873 No Longer Active Abdirahman Rios MD Activ e PERCOCET 5-325 MG TAB 1 tab po q 6 hours, prn severe pain 1 OXYCODONE-ACETAMINOPHEN 41941809762 No Longer Active Abdirahman Rios MD Active SPRINTEC 28 0.25-35 MG-MCG TABS 1 pill by mouth daily for bi rth control NORGESTIMATE-ETH ESTRADIOL 03135605424 No Longer Acti ve Karenina Shanti BROKER Active CYCLOBENZAPRINE HCL 10 MG TABS 1 tablet by mouth three times daily as needed for muscle spasm/pain CYCLOBENZAPRINE HCL 45781857302 No Longer Active Matthewllina Shanti BROKER Active HYDROCODONE-ACETAMINOPHEN 5-325 MG TABS 1 po q6hr PRN Pain 03/09 HYDROCODONE-ACETAMINOPHEN 66600918600 No Longer Active Hira Peraza l BROKER Active AUGMENTIN 500-125 MG ORAL TABS 1 by mouth twice a day AMOXICILLIN-POT CLAVULANATE 78152485574 No Longer Active Hira Moser BROKER Active DICLOFENAC SODIUM 50 MG TBEC 1 tablet by mouth four times da tom PRN Pain DICLOFENAC SODIUM 59267243758 No Longer Active Karenin a Karmenl BROKER Active PROMETHAZINE HCL 25 MG TABS 1 four times a day as needed for nausea/vomiting PROMETHAZINE HCL 57042055875 No Longer Active Abdirahman Rios MD Active HYDROCODONE-ACETAMINOPHEN 5-325 MG TABS 1 tab by mouth every 6 hours as needed PRN Pain HYDROCODONE-ACETAMINOPHEN 03439670342 No Longer Active Abdirahman Rios MD Active GEMFIBROZIL 600 MG TABS 1 po BID GEMFIBROZIL 53376894 005 Active Abdirahman Rios MD Active PERCOCET 5-325 MG ORAL TABS 1 every 6 hours as needed OXYCODONE-ACETAMINOPHEN 19777425531 No Longer Active Abdirahman Rios MD Active PERCOCET 5-325 MG TAB 1 tab po q 6 -8 hours, prn for severe pain OXYCODONE-ACETAMINOPHEN 03443659458 No Longer Active Abdirahman Rios MD Active HYDROCODONE-ACETAMINOPHEN 5-325 MG TABS 1 po q6hr PRN pain 06/30 HYDROCODONE-ACETAMINOPHEN 17282543434 No Longer Active Hira Peraza l BROKER Active GLUCOPHAGE 500 MG ORAL TABS one by mouth 3 times a day METFORMIN HCL 64302598447 No Longer Active Hira Moser BROKER Ac tive PERCOCET 10-325 MG TABS 1 tab by mouth every 6 hours , use sparingly for severe pain OXYCODONE-ACETAMINOPHEN 63194228873 No Longer A ctive Abdirahman Rios MD Active EMLA 2.5-2.5 % EXT CREA apply to skin lesion q 6 hours, prn 2014 LIDOCAINE-PRILOCAINE 37247928057 No Longer Active Abdirahman Rios MD Active PERCOCET 10-325 MG ORAL TABS 1 every 4 hours as needed OXYCODONE-ACETAMINOPHEN 27506535876 No Longer Active Abdirahman Rios MD Active AUGMENTIN 875-125 MG TAB 1 tab by mouth twice daily with food 20 21/10/13 AMOXICILLIN-POT CLAVULANATE 41909084711 No Longer Active Ursula jasmina Frazell BROKER Active PROAIR HFA 108 (90 BASE) MCG/ACT AERS 2 puff q 4-6 hrs PRN 01/24 ALBUTEROL SULFATE 50852885651 No Longer Active Kalpesh Dong MD Active PREDNISONE 20 MG TAB 2 tabs daily for 3 days, 1 t ab daily for 3 days, 1/2 tab daily for 2 days PREDNISONE 99781351252 No Longer Active Abdirahman Rios MD Active KEFLEX 500 MG CAP 1 po qid CEPHALEXIN 379806223 20 No Longer Active Kalpesh Dong MD Active PERCOCET 5-325 MG TAB 1 every 6 hours as needed OXYCODONE-ACETAMINOPHEN 84975180717 No Longer Active Shola MCGILL Active LC-5 LIDOCAINE 5 % CREA apply 1 time daily to affected area 2013 LIDOCAINE (ANORECTAL) 07519015997 No Longer Active Hira muniz BROKER Active HYDROCODONE-ACETAMINOPHEN 10-325 MG TABS 1 by mouth ev chaka 8 hours as needed for pain HYDROCODONE-ACETAMINOPHEN 84577568928 No Longer Active Jillina Frazell BROKER Active LORATADINE 10 MG TABS 1 tablet by mouth daily L ORATADINE 26582445407 No Longer Active Jillina Frazell BROKER Active DIFLUCAN 150 MG TAB 1 qODay x 2 doses FLUCONAZO LE 57776549812 No Longer Active Jillina Frazell BROKER Active CYCLOBENZAPRINE HCL 10 MG TABS 1/2 - 1 tab PO tid PRN back p ain, muscle spasm CYCLOBENZAPRINE HCL 43332277542 No Longer Active Karen Moser APRN Active AUGMENTIN 875-125 MG TAB 1 tab by mouth twice daily with food 20 22/05/07 AMOXICILLIN-POT CLAVULANATE 38314134059 No Longer Active Loida Rios MD Active MOBIC 15 MG TABS 1 tab daily MELOXICAM 828647002 14 No Longer Active Abdirahman Rios MD Active PERCOCET 7.5-325 MG TABS 1 PO tid PRN pain OXYCODONE-ACETAMINOPHEN 65186616308 No Longer Active Abdirahman Rios MD Active LIDODERM 5 % PTCH One patch to painful area [place] N. On for 12 hrs, off for 12 hrs. LIDOCAINE 38937943728 No Longer Active Abdirahman Rios MD Active PERCOCET 7.5-325 MG TABS 1 PO q 8 hrs PRN pain OXYCODONE-ACETAMINOPHEN 28769068058 No Longer Active Shola MCGILL Active HYDROCODONE-ACETAMINOPHEN 7.5-325 MG TABS 1 by mouth e very 6 hours as needed for pain HYDROCODONE-ACETAMINOPHEN 18020076568 No Longer Active Good Julian MD Active CLINDAMYCIN HCL 300 MG CAPS 1 po QID x 7 days CLINDAMYCIN HCL 74485673551 No Longer Active Abdirahman Rios MD Activ e BACTRIM DS 800-160 MG TABS 1 po BID x 7 days 5 SULFAMETHOXAZOLE-TRIMETHOPRIM 39063765584 No Longer Active Abdirahman Rios MD Active ENDOCET 10-325 MG TABS 1 q 6 hr prn OXYCODONE-ACETAMINOPHEN 45418270577 No Longer Active Abdirahman Rios MD Active IBUPROFEN 800 MG TABS 1 tid prn IBUPROFEN 193492 39496 No Longer Active Abdirahman Rios MD Active BACTRIM DS 800-160 MG TABS by mouth twice a day 11/05 SULFAMETHOXAZOLE-TRIMETHOPRIM 21463243225 No Longer Active Good Julian MD Active HYDROCODONE-ACETAMINOPHEN 7.5-325 MG TABS 1 four times a day as needed for pain HYDROCODONE-ACETAMINOPHEN 79506582664 No Longer Activ e Good Julian MD Active KEFLEX 500 MG CAP 1 tab po tid CEPHALEXIN 310933 43325 No Longer Active Hira Moser APRN Active IBUPROFEN 800 MG TAB 1 pill three times daily as needed for pain IBUPROFEN 83073713626 No Longer Active Kalpesh Dong MD Active PROMETHAZINE-CODEINE 6.25-10 MG/5ML SYRP 1 tsp every 6 hrs prn c ough PROMETHAZINE-CODEINE 43870910892 No Longer Active Kalpesh Carr Active HYDROCODONE-ACETAMINOPHEN 5-325 MG TABS 1 tab by mouth every 6 hours as needed HYDROCODONE-ACETAMINOPHEN 57459034860 No Longer Activ e Shola MCGILL Active CEPHALEXIN 500 MG CAPS 1 PO bid x 7 days CEPHAL EXIN 29123387286 No Longer Active Shola MCGILL Active BACTRIM DS 800-160 MG TAB 1 tab by mouth twice daily 2 TRIMETHOPRIM-SULFAMETHOXAZOLE 61028442295 No Longer Active Kalpesh Dong MD Active HYDROCODONE-ACETAMINOPHEN 5-325 MG TABS 1 PO tid PRN pain 5 HYDROCODONE-ACETAMINOPHEN 88827305999 No Longer Active Abhinav Galvan MD Active IMPLANON 68 MG IMPL IMPLANTED IN LEFT ARM ETONO GESTREL 47544043568 No Longer Active Hira Moser APRN Active AMOXICILLIN 500 MG TABS 2 tabs PO bid x 10 d AM OXICILLIN 94011729066 No Longer Active Kalpesh Dong MD Active LEVAQUIN 500 MG TABS 1 PO q day x 7 days LEVOFL OXACIN 25496398244 No Longer Active Shola MCGILL Active AMITRIPTYLINE HCL 25 MG TAB 1 tab by mouth daily 60 minutes before bedtime AMITRIPTYLINE HCL 29952752458 No Longer Active Shola MCGILL Active LORTAB 5 5-500 MG TABS 1/2 to 1 tablet by mouth go ry 6 hours as needed for pain HYDROCODONE-ACETAMINOPHEN 73979925785 No Longer Active Shola MCGILL Active CEPHALEXIN 500 MG TABS Take one by mouth four times daily, morning, noon, early evening and bedtime. CEPHALEXIN 47820353776 No Long er Active Hira Moser APRN Active TYLENOL/CODEINE #3 300-30 MG TAB 1-2 po q6hr PRN Pain ACETAMINOPHEN-CODEINE 87268468771 No Longer Active Edilberto Marino DO Active PRISTIQ 50 MG [id number] 1 po qd DESVENLAFAXI NE SUCCINATE 09919636810 No Longer Active Edilberto Marino DO Active PENICILLIN V POTASSIUM 500 MG TAB 1 four times a day 2 PENICILLIN V POTASSIUM 40161448819 No Longer Active Edilberto Marino DO Active DOXYCYCLINE HYCLATE 100 MG CAPS Take one (1) tablet by mouth twice a day DOXYCYCLINE HYCLATE 00883185546 No Longer Active Ronnie Galvan MD Active HYDROCODONE-ACETAMINOPHEN 5-325 MG TABS 1 po q 6hr PRN Pain 2011 HYDROCODONE-ACETAMINOPHEN 48945852212 No Longer Active Patri joan Perez RN Active BACTRIM DS 800-160 MG TAB 1 tab by mouth twice daily 2 TRIMETHOPRIM-SULFAMETHOXAZOLE 51964509172 No Longer Active Kalpesh Dong MD Active LORTAB 5 5-500 MG TABS 1/2 to 1 tablet by mouth go ry 4 hours as needed for pain HYDROCODONE-ACETAMINOPHEN 75728763922 No Longer Active Kalpesh Dong MD Active GENERESS FE 0.8-25 MG-MCG CHEW Take one by mouth daily NORETHIN-ETH ESTRADIOL-FE 48944215276 No Longer Active Kalpesh Dong MD Active HYDROCODONE-ACETAMINOPHEN 7.5-500 MG TABS 1-2 every 4 hours as needed HYDROCODONE-ACETAMINOPHEN 14614185131 No Longer Activ e Kalpesh Dong MD Active FERROUS SULFATE 325 (65 FE) MG TABS 1 tablet by mouth twice yung y FERROUS SULFATE 94645076579 No Longer Active Kalpesh Dong MD Active IBUPROFEN 600 MG TAB 1 po q6-8hr PRN IBUPROFEN 07797874841 No Longer Active Kalpesh Dong MD Active SPIRONOLACTONE 25 MG TAB 1 tablet by mouth daily 01/22 SPIRONOLACTONE 66842967055 No Longer Active Kalpesh Dong MD Acti ve HYDROCODONE-ACETAMINOPHEN 7.5-325 MG TABS 1 po QID PRN Pain 2011 HYDROCODONE-ACETAMINOPHEN 17501532536 No Longer Active Kalpesh Dong MD Active CLINDAMYCIN HCL 300 MG CAPS 1 po q6hr x 7 days CLINDAMYCIN HCL 89736056340 No Longer Active Edilberto Marino DO Active PREDNISONE 20 MG TAB 2 tabs daily for 4 days, 1 t ab daily for 4 days, 1/2 tab daily for 4 days PREDNISONE 64855189286 No Longer Active Edilberto Marino DO Active PERCOCET 5-325 MG TABS 1 tablet by mouth every 6 hours as ne eded for pain OXYCODONE-ACETAMINOPHEN 99873084404 No Longer Active Abdirahman Rios MD Active VITAMINS TABS Take one by mouth daily MV & MIN W/FE-FA TABS 75627714676 No Longer Active Abdirahman Rios MD Active LUIS 3-0.02 MG TABS 1 tablet by mouth daily as directed DROSPIRENONE-ETHINYL ESTRADIOL 87534064800 No Longer Active Abdirahman Rios MD Active LORATADINE 10 MG TABS 1 tablet by mouth daily L ORATADINE 14819930597 No Longer Active Kalpesh Dong MD Active HYDROCODONE-ACETAMINOPHEN 5-325 MG TABS 1 po q 6hr PRN Pain 2010 HYDROCODONE-ACETAMINOPHEN 17524729432 No Longer Active Edilberto Marino DO Active BACTRIM DS 800-160 MG TAB 1 tab by mouth twice daily 2 TRIMETHOPRIM-SULFAMETHOXAZOLE 17464669214 No Longer Active Abdirahman Rios MD Active 28-0.8 MG TABS Take one by mouth daily 09/20 VIT-FE FUMARATE-FA 36067210934 No Longer Active Abdirahman Rios MD Active CIPRO 500 MG TAB 1 tablet by mouth twice daily CIPROFLOXACIN HCL 11578162397 No Longer Active Abdirahman Rios MD Active BENADRYL 25 MG CAP 1 po q8hr PRN Congestion DIPHENHYDRAMINE HCL 97453228965 No Longer Active Abdirahman Rios MD Active ZOLOFT 50 MG TAB 1 po qd SERTRALINE HCL 970747 51064 No Longer Active Abdirahman Rios MD Active AMOXICILLIN 875 MG TABS 1 tab by mouth twice daily 201 08/09/13 AMOXICILLIN 05046968297 No Longer Active Abdirahman Rios MD Activ e AMOXICILLIN 875 MG TABS 1 tab by mouth twice daily 201 07/19/27 AMOXICILLIN 69207324295 No Longer Active Abdirahman Rios MD Activ e BACTRIM DS 800-160 MG TAB 2 tab by mouth twice daily 2 TRIMETHOPRIM-SULFAMETHOXAZOLE 51404692516 No Longer Active Abdirahman Rios MD Active KEFLEX 500 MG CAP 1 po tid x 10 days CEPHALEXIN 46739877961 No Longer Active Abdirahman Rios MD Active AMOXICILLIN 875 MG TABS 1 tab by mouth twice daily 201 07/18/07 AMOXICILLIN 69391961226 No Longer Active Abdirahman Rios MD Activ e BACTRIM DS 800-160 MG TAB 2 tab by mouth twice daily 2 BACTRIM DS 800-160 MG TAB 205255 TRIMETHOPRIM-SULFAMETHOXAZOLE Inactive ZOLOFT 50 MG TAB 1 po qd ZOLOFT 50 MG TAB 3129 41 SERTRALINE HCL Inactive BENADRYL 25 MG CAP 1 po q8hr PRN Congestion BENADRYL 25 MG CAP 1869860 DIPHENHYDRAMINE HCL Inactive 28-0.8 MG TABS Take one by mouth daily 09/20 28-0.8 MG TABS VIT-FE FUMARATE-FA Inactive HYDROCODONE-ACETAMINOPHEN 5-325 MG TABS 1 po q 6hr PRN Pain 2010 HYDROCODONE-ACETAMINOPHEN 5-325 MG TABS 109317 HYDROCODONE-ACETAMINOPHEN Inactive LORATADINE 10 MG TABS 1 tablet by mouth daily LORATADINE 10 MG TABS 238751 LORATADINE Inactive LUIS 3-0.02 MG TABS 1 tablet by mouth daily as directed LUIS 3-0.02 MG TABS 665174 DROSPIRENONE-ETHINYL ESTRADIOL Inactive VITAMINS TABS Take one by mouth daily VITAMINS TABS MV & MIN W/FE-FA TABS Inactive PERCOCET 5-325 MG TABS 1 tablet by mouth every 6 hours as ne eded for pain PERCOCET 5-325 MG TABS 9653558 OXYCODONE-ACETAMIN OPHEN Inactive PREDNISONE 20 MG TAB 2 tabs daily for 4 days, 1 t ab daily for 4 days, 1/2 tab daily for 4 days PREDNISONE 20 MG TAB 652547 PREDNISON E Inactive CLINDAMYCIN HCL 300 MG CAPS 1 po q6hr x 7 days CLINDAMYCIN HCL 300 MG CAPS 865055 CLINDAMYCIN HCL Inactive HYDROCODONE-ACETAMINOPHEN 7.5-325 MG TABS 1 po QID PRN Pain 2011 HYDROCODONE-ACETAMINOPHEN 7.5-325 MG TABS 064450 HYDROCODONE-ACETAMINOPHEN Inactive SPIRONOLACTONE 25 MG TAB 1 tablet by mouth daily 01/22 SPIRONOLACTONE 25 MG TAB 743704 SPIRONOLACTONE Inactive IBUPROFEN 600 MG TAB 1 po q6-8hr PRN IBUPROFEN 600 MG TAB 574706 IBUPROFEN Inactive FERROUS SULFATE 325 (65 FE) MG TABS 1 tablet by mouth twice yung y FERROUS SULFATE 325 (65 FE) MG TABS 596084 FERROUS SULF ATE Inactive HYDROCODONE-ACETAMINOPHEN 7.5-500 MG TABS 1-2 every 4 hours as needed HYDROCODONE-ACETAMINOPHEN 7.5-500 MG TABS HYDROCODONE-ACETAMINOPHEN Inactive GENERESS FE 0.8-25 MG-MCG CHEW Take one by mouth daily GENERESS FE 0.8-25 MG-MCG CHEW 1100897 NORETHIN-ETH ESTRADIOL-FE Inactive LORTAB 5 5-500 MG TABS 1/2 to 1 tablet by mouth go ry 4 hours as needed for pain LORTAB 5 5-500 MG TABS HYDROCODONE-A CETAMINOPHEN Inactive BACTRIM DS 800-160 MG TAB 1 tab by mouth twice daily 2 BACTRIM DS 800-160 MG TAB 348772 TRIMETHOPRIM-SULFAMETHOXAZOLE Inac tive HYDROCODONE-ACETAMINOPHEN 5-325 MG TABS 1 po q 6hr PRN Pain 2011 HYDROCODONE-ACETAMINOPHEN 5-325 MG TABS 812319 HYDROCODONE-ACETAMINOPHEN Inactive DOXYCYCLINE HYCLATE 100 MG CAPS Take one (1) tablet by mouth twice a day DOXYCYCLINE HYCLATE 100 MG CAPS 6671192 DOXYCYCLINE HYCLATE Inactive PENICILLIN V POTASSIUM 500 MG TAB 1 four times a day 2 PENICILLIN V POTASSIUM 500 MG TAB 634056 PENICILLIN V POTASSIUM Siri ctive PRISTIQ 50 MG [id number] 1 po qd PRISTIQ 50 MG [id number] DESVENLAFAXINE SUCCINATE Inactive TYLENOL/CODEINE #3 300-30 MG TAB 1-2 po q6hr PRN Pain TYLENOL/CODEINE #3 300-30 MG TAB 079138 ACETAMINOPHEN-CODEINE Inact krishna CEPHALEXIN 500 MG TABS Take one by mouth four times daily, morning, noon, early evening and bedtime. CEPHALEXIN 500 MG TABS 785098 CEPHALEXIN Inactive LORTAB 5 5-500 MG TABS 1/2 to 1 tablet by mouth go ry 6 hours as needed for pain LORTAB 5 5-500 MG TABS HYDROCODONE-A CETAMINOPHEN Inactive AMITRIPTYLINE HCL 25 MG TAB 1 tab by mouth daily 60 minutes before bedtime AMITRIPTYLINE HCL 25 MG TAB 324954 AMITRIPTYLINE HCL Inactive AMOXICILLIN 500 MG TABS 2 tabs PO bid x 10 d 7 AMOXICILLIN 500 MG TABS 489573 AMOXICILLIN Inactive IMPLANON 68 MG IMPL IMPLANTED IN LEFT ARM IMPLANON 68 MG IMPL ETONOGESTREL Inactive HYDROCODONE-ACETAMINOPHEN 5-325 MG TABS 1 PO tid PRN pain 5 HYDROCODONE-ACETAMINOPHEN 5-325 MG TABS 121263 HYDROCODONE-ACETAMIN OPHEN Inactive BACTRIM DS 800-160 MG TAB 1 tab by mouth twice daily 2 BACTRIM DS 800-160 MG TAB 141583 TRIMETHOPRIM-SULFAMETHOXAZOLE Inac tive CEPHALEXIN 500 MG CAPS 1 PO bid x 7 days CEPHALEXIN 500 MG CAPS 052379 CEPHALEXIN Inactive HYDROCODONE-ACETAMINOPHEN 5-325 MG TABS 1 tab by mouth every 6 hours as needed HYDROCODONE-ACETAMINOPHEN 5-325 MG TABS 184495 HYDROCODONE-ACETAMINOPHEN Inactive PROMETHAZINE-CODEINE 6.25-10 MG/5ML SYRP 1 tsp every 6 hrs prn c ough PROMETHAZINE-CODEINE 6.25-10 MG/5ML SYRP 062336 PROMETH AZINE-CODEINE Inactive IBUPROFEN 800 MG TAB 1 pill three times daily as needed for pain IBUPROFEN 800 MG TAB IBUPROFEN Inactive KEFLEX 500 MG CAP 1 tab po tid KEFLEX 500 MG CAP 238116 CEPHALEXIN Inactive HYDROCODONE-ACETAMINOPHEN 7.5-325 MG TABS 1 four times a day as needed for pain HYDROCODONE-ACETAMINOPHEN 7.5-325 MG TABS 150869 HYDROCODONE-ACETAMINOPHEN Inactive BACTRIM DS 800-160 MG TABS by mouth twice a day 11/05 BACTRIM DS 800-160 MG TABS 265820 SULFAMETHOXAZOLE-TRIMETHOPRIM Inactive IBUPROFEN 800 MG TABS 1 tid prn IBUPROFEN 800 MG TABS 842705 IBUPROFEN Inactive ENDOCET 10-325 MG TABS 1 q 6 hr prn ENDOC ET 10-325 MG TABS 8836177 OXYCODONE-ACETAMINOPHEN Inactive HYDROCODONE-ACETAMINOPHEN 7.5-325 MG TABS 1 by mouth e very 6 hours as needed for pain HYDROCODONE-ACETAMINOPHEN 7.5-325 MG TABS 521487 HYDROCODONE-ACETAMINOPHEN Inactive PERCOCET 7.5-325 MG TABS 1 PO q 8 hrs PRN pain PERCOCET 7.5-325 MG TABS 2010865 OXYCODONE-ACETAMINOPHEN Inactive LIDODERM 5 % PTCH One patch to painful area GA N. On for 12 hrs, off for 12 hrs. LIDODERM 5 % PTCH 7557870 LIDOCAINE Inactiv e PERCOCET 7.5-325 MG TABS 1 PO tid PRN pain PERCOCET 7.5- 325 MG TABS 8954027 OXYCODONE-ACETAMINOPHEN Inactive MOBIC 15 MG TABS 1 tab daily MOBIC 15 MG TABS 15 2695 MELOXICAM Inactive CYCLOBENZAPRINE HCL 10 MG TABS 1/2 - 1 tab PO tid PRN back p ain, muscle spasm CYCLOBENZAPRINE HCL 10 MG TABS 075050 CYCLOBENZA JOSEPH HCL Inactive LORATADINE 10 MG TABS 1 tablet by mouth daily LORATADINE 10 MG TABS 193181 LORATADINE Inactive HYDROCODONE-ACETAMINOPHEN 10-325 MG TABS 1 by mouth ev chaka 8 hours as needed for pain HYDROCODONE-ACETAMINOPHEN 10-325 MG TABS 140083 HYDROCODONE-ACETAMINOPHEN Inactive LC-5 LIDOCAINE 5 % CREA apply 1 time daily to affected area 2013 LC-5 LIDOCAINE 5 % CREA 0164095 LIDOCAINE (ANORECTAL) In active PERCOCET 5-325 MG TAB 1 every 6 hours as needed PERCOCET 5-325 MG TAB 0974777 OXYCODONE-ACETAMINOPHEN Inactive KEFLEX 500 MG CAP 1 po qid KEFLEX 500 MG CAP 30 9114 CEPHALEXIN Inactive PROAIR HFA 108 (90 BASE) MCG/ACT AERS 2 puff q 4-6 hrs PRN 01/24 PROAIR HFA 108 (90 BASE) MCG/ACT AERS ALBUTEROL SULFATE Inactive PERCOCET 10-325 MG ORAL TABS 1 every 4 hours as needed PERCOCET 10-325 MG ORAL TABS 4477106 OXYCODONE-ACETAMINOPHEN Inactiv e EMLA 2.5-2.5 % EXT CREA apply to skin lesion q 6 hours, prn 2014 EMLA 2.5-2.5 % EXT CREA 910374 LIDOCAINE-PRILOCAINE Siri ctive PERCOCET 10-325 MG TABS 1 tab by mouth every 6 hours , use sparingly for severe pain PERCOCET 10-325 MG TABS 8972060 OXYCODONE-ACETAMINOPHEN Inactive GLUCOPHAGE 500 MG ORAL TABS one by mouth 3 times a day GLUCOPHAGE 500 MG ORAL TABS 854844 METFORMIN HCL Inactive HYDROCODONE-ACETAMINOPHEN 5-325 MG TABS 1 po q6hr PRN pain 06/30 HYDROCODONE-ACETAMINOPHEN 5-325 MG TABS 415490 HYDROCOD ONE-ACETAMINOPHEN Inactive PERCOCET 5-325 MG TAB 1 tab po q 6 -8 hours, prn for severe pain PERCOCET 5-325 MG TAB 6501524 OXYCODONE-ACETAMINOPHEN In active PERCOCET 5-325 MG ORAL TABS 1 every 6 hours as needed PERCOCET 5-325 MG ORAL TABS 0422092 OXYCODONE-ACETAMINOPHEN Inactive DICLOFENAC SODIUM 50 MG TBEC 1 tablet by mouth four times da tom PRN Pain DICLOFENAC SODIUM 50 MG TBEC [id number] DICLOFENAC S ODIUM Inactive AUGMENTIN 500-125 MG ORAL TABS 1 by mouth twice a day AUGMENTIN 500-125 MG ORAL TABS [id number] AMOXICILLIN-POT CLAVULANATE I nactive HYDROCODONE-ACETAMINOPHEN 5-325 MG TABS 1 po q6hr PRN Pain 03/09 HYDROCODONE-ACETAMINOPHEN 5-325 MG TABS [id number] HYDROCOD ONE-ACETAMINOPHEN Inactive CYCLOBENZAPRINE HCL 10 MG TABS 1 tablet by mouth three times daily as needed for muscle spasm/pain CYCLOBENZAPRINE HCL 10 MG TABS [id number] CYCLOBENZAPRINE HCL Inactive SPRINTEC 28 0.25-35 MG-MCG TABS 1 pill by mouth daily for bi rth control SPRINTEC 28 0.25-35 MG-MCG TABS [id number] NORGESTIMATE-ETH ESTRADIOL Inactive PERCOCET 5-325 MG TAB 1 tab po q 6 hours, prn severe pain PERCOCET 5-325 MG TAB [id number] OXYCODONE-ACETAMINOPHEN Inactive IBUPROFEN 600 MG ORAL TABS 1 by mouth twice a day 2014 IBUPROFEN 600 MG ORAL TABS [id number] IBUPROFEN Inactive CYMBALTA 30 MG CPEP 1 cap by mouth daily CYMBALTA 30 MG CPEP [id number] DULOXETINE HCL Inactive HYDROCODONE-ACETAMINOPHEN 5-325 MG TABS 1 po q6hr PRN Pain 04/09 HYDROCODONE-ACETAMINOPHEN 5-325 MG TABS [id number] HYDROCOD ONE-ACETAMINOPHEN Inactive TRAZODONE HCL 100 MG TAB 0.5 to 1 po qHS PRN Insomnia TRAZODONE HCL 100 MG TAB [id number] TRAZODONE HCL Inactive ALPRAZOLAM 0.5 MG TABS 1 po BID PRN Anxiety ALPRAZOLAM 0.5 MG TABS [id number] ALPRAZOLAM Inactive [id number] 50-325-40 MG ORAL CAPS 1-2 po TID GA N Headache [id number] 50-325-40 MG ORAL CAPS 2 [id number] [id number] Inactive HYDROCODONE-ACETAMINOPHEN 5-325 MG TABS 1 po TID PRN Pain 9 HYDROCODONE-ACETAMINOPHEN 5-325 MG TABS [id number] HYDROCODONE-ACETAMIN OPHEN Inactive PERCOCET 10-325 MG TABS 1 tablet every 8 hours as needed for antonia n PERCOCET 10-325 MG TABS [id number] OXYCODONE-ACETAMINOPHEN Inactive ONDANSETRON 4 MG TBDP 1 q4h PRN nausea ON DANSETRON 4 MG TBDP [id number] ONDANSETRON Inactive VIIBRYD 10 & 20 & 40 MG KIT 1 po qd as directed 07/24 VIIBRYD 10 & 20 & 40 MG KIT VILAZODONE HCL Inactive DICLOFENAC SODIUM 50 MG TBEC 1 tablet by mouth four times da tom PRN Pain DICLOFENAC SODIUM 50 MG TBEC [id number] DICLOFENAC S ODIUM Inactive PERCOCET 10-325 MG ORAL TABS one every 6 hours prn pain PERCOCET 10-325 MG ORAL TABS [id number] OXYCODONE-ACETAMINOPHEN Inactiv e PERCOCET 10-325 MG ORAL TABS take 1 tab by mouth q 4hours as needed for pain PERCOCET 10-325 MG ORAL TABS [id number] OXYCODONE-ACETAMINOPHEN Inactive FLONASE ALLERGY RELIEF 50 MCG/ACT NASAL SUSP One spray in each nostril twice a day. FLONASE ALLERGY RELIEF 50 MCG/ACT NASAL S RETIREMENT 882482 FLUTICASONE PROPIONATE Inactive AUGMENTIN 875-125 MG TAB 1 tab by mouth twice daily with food 20 23/05/16 AUGMENTIN 875-125 MG TAB [id number] AMOXICILLIN-POT [place] Inactive HYDROCODONE-ACETAMINOPHEN 5-325 MG TABS 1 tab by mouth every 6 hours as needed for pain HYDROCODONE-ACETAMINOPHEN 5-325 MG TABS 8 30213 HYDROCODONE-ACETAMINOPHEN Inactive PERCOCET 10-325 MG TABS 1 tablet every 8 hours as needed for antonia n PERCOCET 10-325 MG TABS [id number] OXYCODONE-ACETAMINOPHEN Inactive LC-4 LIDOCAINE 4 % EXT CREA apply q 6 hours, prn 08/03 LC-4 LIDOCAINE 4 % EXT CREA [id number] LIDOCAINE Inactive PROMETHAZINE HCL 25 MG TABS 1 four times a day as needed for nausea/vomiting PROMETHAZINE HCL 25 MG TABS 775725 PROMETHAZINE HCL Inactive AMOXICILLIN 875 MG TABS 1 tab by mouth twice daily 201 07/18/07 AMOXICILLIN 875 MG TABS 614685 AMOXICILLIN Inactive KEFLEX 500 MG CAP 1 po tid x 10 days KEFLEX 500 MG CAP 454158 CEPHALEXIN Inactive AMOXICILLIN 875 MG TABS 1 tab by mouth twice daily 201 07/19/27 AMOXICILLIN 875 MG TABS 400780 AMOXICILLIN Inactive AMOXICILLIN 875 MG TABS 1 tab by mouth twice daily 201 08/09/13 AMOXICILLIN 875 MG TABS 757445 AMOXICILLIN Inactive CIPRO 500 MG TAB 1 tablet by mouth twice daily CIPRO 500 MG TAB 452116 CIPROFLOXACIN HCL Inactive BACTRIM DS 800-160 MG TAB 1 tab by mouth twice daily 2 BACTRIM DS 800-160 MG TAB 709860 TRIMETHOPRIM-SULFAMETHOXAZOLE Inac tive LEVAQUIN 500 MG TABS 1 PO q day x 7 days LEVAQUIN 500 MG TABS 478877 LEVOFLOXACIN Inactive CLINDAMYCIN HCL 300 MG CAPS 1 po QID x 7 days CLINDAMYCIN HCL 300 MG CAPS 010942 CLINDAMYCIN HCL Inactive AUGMENTIN 875-125 MG TAB 1 tab by mouth twice daily with food 20 22/05/07 AUGMENTIN 875-125 MG TAB 283717 AMOXICILLIN-POT [place] Inactive DIFLUCAN 150 MG TAB 1 qODay x 2 doses DIFLUCAN 150 MG TAB 990859 FLUCONAZOLE Inactive PREDNISONE 20 MG TAB 2 tabs daily for 3 days, 1 t ab daily for 3 days, 1/2 tab daily for 2 days PREDNISONE 20 MG TAB 509763 PREDNISON E Inactive AUGMENTIN 875-125 MG TAB 1 tab by mouth twice daily with food 21/10/13 AUGMENTIN 875-125 MG TAB 953073 AMOXICILLIN-POT [place] Inactive HYDROCODONE-ACETAMINOPHEN 5-325 MG TABS 1 tab by mouth every 6 hours as needed PRN Pain HYDROCODONE-ACETAMINOPHEN 5-325 MG TABS 8 02053 HYDROCODONE-ACETAMINOPHEN Inactive PROMETHAZINE HCL 25 MG TABS 1 four times a day as needed for nausea/vomiting PROMETHAZINE HCL 25 MG TABS 702733 PROMETHAZINE HCL Inactive Advance Directives Directive Description Start Date PERMISSION TO SHARE Immunizations Vaccine Administration Date Value Standard Alf cription Seasonal influenza vaccine, injectable, containing preservative, for > 3 years old (Afluria, FluLaval, Fluzone, Fluvirin, Fluarix, Agriflu(>= 18 yo)) Fluzone (>3 yrs.) [[id number]] Influenza, seasonal, inject able Seasonal influenza vaccine, injectable, preservative free, for > 3 years old (Afluria, FluLaval, Fluzone, Fluvirin, Fluarix, Agriflu(>= 18 yo)) Fluzone preservative free (>3 yrs.) [[id number]] Influenza, seasonal, injectable, preservative free Seasonal influenza vaccine, injectable, containing preservative, for > 3 years old (Afluria, FluLaval, Fluzone, Fluvirin, Fluarix, Agriflu(>= 18 yo)) Fluzone (>3 yrs.) [[id number]] Influenza, seasonal, inject able Seasonal influenza vaccine, injectable, containing preservative, for > 3 years old (Afluria, FluLaval, Fluzone, Fluvirin, Fluarix, Agriflu(>= 18 yo)) Fluzone (>3 yrs.) [[id number]] Influenza, seasonal, inject able dT (Diphtheria and [...] - 3141-9 238.8 [lb_av] Weigh t Measured Diagnostic Results Date [...] Panel - Chemistry sodium, serum 142 mmol/L 320-625 9371/05/12 potassium, serum 4.8 mmol/L 3.5-5.2 chloride, serum [...] ... - Chemistry sodium, serum 137 mmol/L 202-714 6436/02/24 carbon dioxide, venous blood 26.3 mmol/L 21.0-32 [...] Panel - Chemistry cholesterol, serum 181 mg/dL 360-266 1957/09/01 triglyceride, serum, fasting 341 mg/dL 30-200 HDL cholesterol, serum 22 mg/dL 32-96 LDL cholesterol, serum 91 mg/dL 0-130 cholesterol, serum 165 mg/dL [phone]/05/12 triglyceride, serum, fasting 524 mg/dL 30-200 HDL [...] negative Encounters Code Encounter Date Provider Facility CPT-71366 Level 4 Est. Patient 16:38:26 REELING AND TUBING MACHINE OPERATOR bAdirahman Rios MD [facility] CPT-53938 Level 3 Est. Patient 05:31:41 REELING AND TUBING MACHINE OPERATOR Kalpesh goins MD [facility] CPT-87876 Level 3 Est. Patient 11:22:02 REELING AND TUBING MACHINE OPERATOR Hira muniz [facility] CPT-03569 Level 3 Est. Patient 21:00:18 REELING AND TUBING MACHINE OPERATOR Rajni danielson Formerly named [facility] CPT-25347 Level 3 Est. Patient 14:15:00 REELING AND TUBING MACHINE OPERATOR Kalpesh goins MD [facility] CPT-90307 Level 2 Est. Patient 19:57:52 REELING AND TUBING MACHINE OPERATOR Rajni danielson Formerly named [facility] CPT-12743 Level 3 Est. Patient 16:58:40 REELING AND TUBING MACHINE OPERATOR Bj funes MD [facility] CPT-55140 Level 3 Est. Patient 08:51:33 CDT Kalpesh goins MD [facility] CPT-56844 Level 4 Est. Patient 14:14:53 CDT Abdirahman Rios MD [facility] CPT-63783 Level 3 Est. Patient 15:47:40 CDT Kalpesh goins MD [facility] CPT-20420 Level 3 Est. Patient 10:57:26 CDT Abdirahman Rios MD [facility][note 3]-[id number] Level 3 Est. Patient 14:29:53 CDT Abhinav Galvan MD [facility] CPT-09676 Level 2 Est. Patient 16:33:01 CDT Kalpesh goins MD [facility] CPT-08262 Level 4 Est. Patient 16:44:56 CDT Abdirahman Rios MD [facility] CPT-06108 Level 2 Est. Patient 07:49:32 CDT Kalpesh goins MD [facility] CPT-29807 Level 3 New Patient 15:47:11 REELING AND TUBING MACHINE OPERATOR Bj huber MD [facility]-90825 Level 4 Est. Patient 14:37:38 REELING AND TUBING MACHINE OPERATOR Abdirahman Rios MD [facility] CPT-94698 Level 2 Est. Patient 13:32:17 REELING AND TUBING MACHINE OPERATOR Kalpesh goins MD [facility] CPT-09841 Level 3 Est. Patient 17:32:57 REELING AND TUBING MACHINE OPERATOR Edilberto tiwari [facility] CPT-67222 Level 3 Est. Patient 17:22:33 REELING AND TUBING MACHINE OPERATOR Edilberto tiawri [facility] CPT-31451 Level 2 Est. Patient 16:57:09 REELING AND TUBING MACHINE OPERATOR Kalpesh goins MD [facility]-34588 Level 3 Est. Patient 14:03:08 REELING AND TUBING MACHINE OPERATOR Abdirahman Rios MD [facility] CPT-67938 Level 3 Est. Patient 18:12:34 CDT Shola Wright [facility] CPT-75888 Level 3 Est. Patient 19:34:46 CDT Shola Wright [facility] CPT-26062 Level 3 Est. Patient 14:19:37 CDT Abdirahman Rios MD [facility] CPT-04408 Level 3 Est. Patient 14:11:58 CDT Kalpesh goins MD [facility]-59210 Level 3 Est. Patient 16:50:00 CDT Michelle BRADFORDP [facility] CPT-87889 Level 3 Est. Patient 17:11:32 REELING AND TUBING MACHINE OPERATOR Brandie bates MD PhD [facility][note 3]-[id number] Level 3 Est. Patient 16:31:47 REELING AND TUBING MACHINE OPERATOR Shola Wright [facility] CPT-80019 Level 3 Est. Patient 17:51:10 REELING AND TUBING MACHINE OPERATOR Abhinav Galvan MD [facility][note 3]-[id number] Level 4 Est. Patient 12:54:56 REELING AND TUBING MACHINE OPERATOR Kalpesh goins MD [facility]-39874 Level 4 Est. Patient 12:53:56 REELING AND TUBING MACHINE OPERATOR Kalpesh goins MD [facility]-24129 Level 3 Est. Patient 17:56:58 CDT Shola Wright [facility] CPT-11745 Level 3 Est. Patient 14:26:20 CDT Janak butcher [facility] CPT-55849 Level 3 Est. Patient 09:38:41 CDT Shola Wright [facility] CPT-21900 Level 3 Est. Patient 14:45:26 CDT Edilberto tiwari [facility] CPT-76259 Level 3 Est. Patient 10:51:33 CDT [facility] Level 3 Est. Patient 11:57:55 REELING AND TUBING MACHINE OPERATOR Shola Wright [facility] CPT-28220 Level 3 Est. Patient 09:53:33 REELING AND TUBING MACHINE OPERATOR Edilberto tiwari [facility] CPT-38962 Level 3 Est. Patient 14:42:54 REELING AND TUBING MACHINE OPERATOR Abhinav Galvan MD [facility] CPT-12075 Level 3 Est. Patient 15:10:02 CDT Janak Stevenamira [facility] CPT-35880 Level 3 Est. Patient 15:20:20 CDT Theo dennis MD [facility] CPT-02733 Level 2 Est. Patient 14:08:57 CDT Kalpesh goins MD [facility] CPT-25250 Level 3 Est. Patient 13:56:19 CDT Abdirahman Rios MD [facility] CPT-41915 Level 3 Est. Patient 13:59:37 CDT Abdirahman Rios MD [facility] CPT-08103 Level 2 Est. Patient 14:44:59 CDT Kalpesh goins MD [facility] CPT-74906 Level 3 Est. Patient 06:06:23 CDT Edilberto tiwari DO [facility] CPT-13196 Level 3 Est. Patient 15:23:54 CDT Abdirahman Rios MD [facility] CPT-45695 Level 3 Est. Patient 15:43:49 CDT Abdirahman Rios MD [facility] CPT-44890 Level 3 Est. Patient 12:46:47 REELING AND TUBING MACHINE OPERATOR Abdirahman Rios MD [facility] CPT-79575 Level 3 Est. Patient 08:13:35 REELING AND TUBING MACHINE OPERATOR Abdirahman Rios MD [facility] CPT-51727 Level 2 Est. Patient 09:36:42 REELING AND TUBING MACHINE OPERATOR Abdirahman Rios MD [facility] CPT-02096 Level 3 Est. Patient 10:56:43 CDT Abdirahman Rios MD [facility] CPT-15323 Level 3 Est. Patient 18:24:52 CDT Abdirahman Rios MD [facility] CPT-49486 Level 3 Est. Patient 13:27:22 CDT Abdirahman Rios MD [facility] Procedures Code Procedure Name Date Entry Date Standard Desc ription CPT-47248 Postop F/U Visit 17:09:41 REELING AND TUBING MACHINE OPERATOR CPT-56043 Postop F/U Visit 14:08:43 REELING AND TUBING MACHINE OPERATOR CPT-73881 Postop F/U Visit 15:18:16 REELING AND TUBING MACHINE OPERATOR CPT-60564 Postop F/U Visit 15:03:49 REELING AND TUBING MACHINE OPERATOR CPT-03310 Postop F/U Visit 14:45:23 REELING AND TUBING MACHINE OPERATOR CPT-44369 Postop F/U Visit 14:11:03 REELING AND TUBING MACHINE OPERATOR CPT-20587 Postop F/U Visit 18:21:21 REELING AND TUBING MACHINE OPERATOR CPT-38287 Postop F/U Visit 15:57:12 REELING AND TUBING MACHINE OPERATOR CPT-22358 Bladder Instillation 16:58:41 REELING AND TUBING MACHINE OPERATOR 6 CPT-63106 Fluzone Quadrivalent Intramuscular Suspe nsion 0.5 ML 15:20:56 REELING AND TUBING MACHINE OPERATOR CPT-19998 Immunization Single Admin 15:20:56 REELING AND TUBING MACHINE OPERATOR 2014 CPT-75917 Excis pilonidal cyst simple 08:51:34 CDT 20 22/04/20 CPT-79098 Venipuncture Draw Fee 14:27:29 CDT CPT-47615 Postop F/U Visit 15:27:43 CDT CPT-46724 Postop F/U Visit 14:40:59 CDT CPT-94650 Postop F/U Visit 15:02:46 CDT CPT-79144 Postop F/U Visit 11:29:00 REELING AND TUBING MACHINE OPERATOR CPT-J0696 Rocephin 1000 mg (Ceftriaxone) 17:22:33 REELING AND TUBING MACHINE OPERATOR CPT-83753 Postop F/U Visit 18:41:07 REELING AND TUBING MACHINE OPERATOR CPT-78256 Postop F/U Visit 08:19:08 REELING AND TUBING MACHINE OPERATOR CPT-97113 Immunization Single Admin 16:41:53 CDT 2013 CPT-08227 Fluzone Quadrivalent Intramuscular Suspe nsion 0.5 ML 16:41:53 CDT CPT-OV Office Visit 16:39:18 CDT CPT-OV Office Visit 16:16:36 CDT CPT-OV Office Visit 15:34:48 CDT CPT-61290 Postop F/U Visit 14:50:12 CDT CPT-61589 Postop F/U Visit 14:41:10 CDT CPT-05256 Venipuncture Draw Fee 11:38:04 REELING AND TUBING MACHINE OPERATOR CPT-14061 Postop F/U Visit 19:02:59 REELING AND TUBING MACHINE OPERATOR CPT-27358 Postop F/U Visit 12:04:54 REELING AND TUBING MACHINE OPERATOR CPT-92760 Administration single or combination vac cine inc oral 15:56:43 CDT CPT-30550 Influenza split virus > age 3 15:56:43 CDT CPT-20832 Hand comp min 3V 14:25:19 CDT CPT-13911 Postop F/U Visit 21:40:51 CDT CPT-12847 Postop F/U Visit 10:58:43 CDT CPT-54330 Administration single or combination vac cine inc oral 12:33:54 REELING AND TUBING MACHINE OPERATOR CPT-55125 Influenza Preservative Free split virus >age 3 12:33:54 REELING AND TUBING MACHINE OPERATOR CPT-05331 Administration single or combination vac cine inc oral 09:30:51 CDT CPT-60135 Influenza split virus > age 3 09:30:51 CDT CPT-67685 Postop F/U Visit 15:14:53 CDT CPT-79725 Postop F/U Visit 13:50:14 CDT CPT-25648 Postop F/U Visit 13:34:52 CDT CPT-OV Office Visit 16:55:03 CDT CPT-60682 [place] of cervix w bx ECC 13:32:50 CDT 10/19 CPT-J1885 Toradol 60 mg (Ketorolac) 15:31:59 CDT 2011 CPT-J1885 Toradol 60 mg (Ketorolac) 15:23:54 CDT 2011 CPT-11110 Visit 11:34:37 REELING AND TUBING MACHINE OPERATOR CPT-34788 Visit 10:52:39 REELING AND TUBING MACHINE OPERATOR CPT-56350 Visit 10:12:02 REELING AND TUBING MACHINE OPERATOR CPT-46430 Visit 11:22:43 REELING AND TUBING MACHINE OPERATOR CPT-41956 Visit 11:24:12 REELING AND TUBING MACHINE OPERATOR CPT-83076 Visit 10:47:05 REELING AND TUBING MACHINE OPERATOR CPT-OV Office Visit 10:26:16 REELING AND TUBING MACHINE OPERATOR CPT-OV Office Visit 15:34:31 REELING AND TUBING MACHINE OPERATOR CPT-50028 Visit 10:42:08 REELING AND TUBING MACHINE OPERATOR CPT-28317 Visit 10:52:45 REELING AND TUBING MACHINE OPERATOR CPT-000 Give Appropriate Flu Vaccine 16:56:41 CDT 2 CPT-10163 Administration single or combination vac cine inc oral 10:33:21 CDT CPT-32009 Influenza split virus > age 3 10:33:21 CDT CPT-55956 Visit 13:23:09 CDT CPT-60697 Visit 18:24:52 CDT CPT-73867 Sono OB comp > 14 weeks 12:07:49 CDT 04/07
--- OUTSIDE RECORDS SUMMARY | 2020-01-18 15:51 | XMS REPORT | Clinical Summary ---
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 Abscess of anal and rectal regions Hypertriglyceridemia [...] Inactive Good melchor MD HEALTH SCREENING ICD-V70.0 Jose M Julian MD EXAMINATION, NORMAL ICD-V24.2 Inact krishna [...] SURGERY SYSTEM NEC ICD-V58.76 20 20/10/29 Inactive Godo Julian MD Dysuria ICD-788.1 Inactive Good collier [...] Generic Name NDC Status Provider Patient Instruction SPRINTEC 28 0.25-35 MG-MCG TABS 1 pill by mouth daily for bi rth control NORGESTIMATE-ETH ESTRADIOL 81073341029 Active Hira Moser APRN Active GLUCOPHAGE 500 MG ORAL TABS one by mouth 3 times a day METFORMIN HCL 41270220624 No Longer Active Hira Moser APRN Ac tive PERCOCET 10-325 MG TABS 1 tab by mouth every 6 hours , use sparingly for severe pain OXYCODONE-ACETAMINOPHEN 91688304248 No Longer A ctive Abdirahman Rios MD Active IBUPROFEN 600 MG ORAL TABS 1 by mouth twice a day IBUPROFEN 49156252614 Active ERNIE Higuera Active TRAZODONE HCL 100 MG TAB 0.5 to 1 po qHS PRN Insomnia TRAZODONE HCL 37215928739 Active Abdirahman Rios MD Active CYMBALTA 30 MG CPEP 1 cap by mouth daily DULOXE CLEO HCL 06841617239 Active Abdirahman Rios MD Active EMLA 2.5-2.5 % EXT CREA apply to skin lesion q 6 hours, prn 2014 LIDOCAINE-PRILOCAINE 32694401783 No Longer Active Abdirahman Rios MD Active HYDROCODONE-ACETAMINOPHEN 5-325 MG TABS 1 po q6hr PRN pain HYDROCODONE-ACETAMINOPHEN 09780167290 Active Abdirahman Rios MD Active PERCOCET 10-325 MG ORAL TABS 1 every 4 hours as needed OXYCODONE-ACETAMINOPHEN 18698673439 No Longer Active Abdirahman Rios MD Active [id number] 50-325-40 MG ORAL CAPS 1-[address] N Headache [id number] 15898746083 Active Abdirahman Rios MD Active AUGMENTIN 875-125 MG TAB 1 tab by mouth twice daily with food 20 21/10/13 AMOXICILLIN-POT CLAVULANATE 85569486981 No Longer Active Ursula Moser APRN Active PROAIR HFA 108 (90 BASE) MCG/ACT AERS 2 puff q 4-6 hrs PRN 01/24 ALBUTEROL SULFATE 84653953981 No Longer Active Kalpesh Dong MD Active ALPRAZOLAM 0.5 MG TABS 1 po BID PRN Anxiety ALPRA ZOLAM 97876723901 Active Abdirahman Rios MD Active CYCLOBENZAPRINE HCL 10 MG TABS 1 tablet by mouth three times daily as needed for muscle spasm/pain CYCLOBENZAPRINE HCL 56493613888 Active Abdirahman Rios MD Active PREDNISONE 20 MG TAB 2 tabs daily for 3 days, 1 t ab daily for 3 days, 1/2 tab daily for 2 days PREDNISONE 31214275473 No Longer Active Abdirahman Rios MD Active KEFLEX 500 MG CAP 1 po qid CEPHALEXIN 361498114 20 No Longer Active Kalpesh Dong MD Active PERCOCET 5-325 MG TAB 1 every 6 hours as needed OXYCODONE-ACETAMINOPHEN 81822161152 No Longer Active Shola MCGILL Active LC-5 LIDOCAINE 5 % CREA apply 1 time daily to affected area 2013 LIDOCAINE (ANORECTAL) 48800019172 No Longer Active Hira muniz APRN Active HYDROCODONE-ACETAMINOPHEN 10-325 MG TABS 1 by mouth ev chaka 8 hours as needed for pain HYDROCODONE-ACETAMINOPHEN 49487099469 No Longer Active Hira Moser APRN Active LORATADINE 10 MG TABS 1 tablet by mouth daily L ORATADINE 78654628734 No Longer Active Jillina Frazell DOCUMENTATION CLERK Active DIFLUCAN 150 MG TAB 1 qODay x 2 doses FLUCONAZO LE 85195251258 No Longer Active Jillina Frazell DOCUMENTATION CLERK Active CYCLOBENZAPRINE HCL 10 MG TABS 1/2 - 1 tab PO tid PRN back p ain, muscle spasm CYCLOBENZAPRINE HCL 60316976725 No Longer Active Karen siri Frazell DOCUMENTATION CLERK Active AUGMENTIN 875-125 MG TAB 1 tab by mouth twice daily with food 20 22/05/07 AMOXICILLIN-POT CLAVULANATE 88644329298 No Longer Active Loida Rios MD Active MOBIC 15 MG TABS 1 tab daily MELOXICAM 392155267 14 No Longer Active Abdirahman Rios MD Active PERCOCET 7.5-325 MG TABS 1 PO tid PRN pain OXYCODONE-ACETAMINOPHEN 38819744539 No Longer Active Abdirahman Rios MD Active LIDODERM 5 % PTCH One patch to painful area CT N. On for 12 hrs, off for 12 hrs. LIDOCAINE 84874154778 No Longer Active Abdirahman Rios MD Active PERCOCET 7.5-325 MG TABS 1 PO q 8 hrs PRN pain OXYCODONE-ACETAMINOPHEN 75091004091 No Longer Active Shola MCGILL Active HYDROCODONE-ACETAMINOPHEN 7.5-325 MG TABS 1 by mouth e very 6 hours as needed for pain HYDROCODONE-ACETAMINOPHEN 55600478669 No Longer Active Good Julian MD Active CLINDAMYCIN HCL 300 MG CAPS 1 po QID x 7 days CLINDAMYCIN HCL 58899744359 No Longer Active Abdirahman Rios MD Activ e BACTRIM DS 800-160 MG TABS 1 po BID x 7 days 5 SULFAMETHOXAZOLE-TRIMETHOPRIM 96717340328 No Longer Active Abdirahman Rios MD Active ENDOCET 10-325 MG TABS 1 q 6 hr prn OXYCODONE-ACETAMINOPHEN 70448514910 No Longer Active Abdirahman Rios MD Active IBUPROFEN 800 MG TABS 1 tid prn IBUPROFEN 889988 31053 No Longer Active Abdirahman Rios MD Active BACTRIM DS 800-160 MG TABS by mouth twice a day 11/05 SULFAMETHOXAZOLE-TRIMETHOPRIM 38448056987 No Longer Active Good Julian MD Active HYDROCODONE-ACETAMINOPHEN 7.5-325 MG TABS 1 four times a day as needed for pain HYDROCODONE-ACETAMINOPHEN 24486203194 No Longer Activ e Good Julian MD Active KEFLEX 500 MG CAP 1 tab po tid CEPHALEXIN 178073 59377 No Longer Active Hira Moser APRN Active IBUPROFEN 800 MG TAB 1 pill three times daily as needed for pain IBUPROFEN 43566448603 No Longer Active Kalpesh Dong MD Active PROMETHAZINE-CODEINE 6.25-10 MG/5ML SYRP 1 tsp every 6 hrs prn c ough PROMETHAZINE-CODEINE 75918418339 No Longer Active Kalpesh Carr Active HYDROCODONE-ACETAMINOPHEN 5-325 MG TABS 1 tab by mouth every 6 hours as needed HYDROCODONE-ACETAMINOPHEN 98872517956 No Longer Activ e Shola MCGILL Active CEPHALEXIN 500 MG CAPS 1 PO bid x 7 days CEPHAL EXIN 91274102865 No Longer Active Shola MCGILL Active BACTRIM DS 800-160 MG TAB 1 tab by mouth twice daily 2 TRIMETHOPRIM-SULFAMETHOXAZOLE 97429990166 No Longer Active Kalpesh Dong MD Active HYDROCODONE-ACETAMINOPHEN 5-325 MG TABS 1 PO tid PRN pain 5 HYDROCODONE-ACETAMINOPHEN 05829095997 No Longer Active Abhinav Galvan MD Active IMPLANON 68 MG IMPL IMPLANTED IN LEFT ARM ETONO GESTREL 83036762145 No Longer Active Hira Moser APRN Active AMOXICILLIN 500 MG TABS 2 tabs PO bid x 10 d AM OXICILLIN 35975110305 No Longer Active Kalpesh Dong MD Active LEVAQUIN 500 MG TABS 1 PO q day x 7 days LEVOFL OXACIN 98491389622 No Longer Active Shola MCGILL Active AMITRIPTYLINE HCL 25 MG TAB 1 tab by mouth daily 60 minutes before bedtime AMITRIPTYLINE HCL 34194973422 No Longer Active Shola MCGILL Active LORTAB 5 5-500 MG TABS 1/2 to 1 tablet by mouth go ry 6 hours as needed for pain HYDROCODONE-ACETAMINOPHEN 10539862266 No Longer Active Shola MCGILL Active CEPHALEXIN 500 MG TABS Take one by mouth four times daily, morning, noon, early evening and bedtime. CEPHALEXIN 85720159373 No Long er Active Hira Moser APRN Active TYLENOL/CODEINE #3 300-30 MG TAB 1-2 po q6hr PRN Pain ACETAMINOPHEN-CODEINE 99763019484 No Longer Active Edilberto Marino DO Active PRISTIQ 50 MG DN83A-DTL 1 po qd DESVENLAFAXI NE SUCCINATE 42740187076 No Longer Active Edilberto Marino DO Active PENICILLIN V POTASSIUM 500 MG TAB 1 four times a day 2 PENICILLIN V POTASSIUM 43368703056 No Longer Active Edilberto Marino DO Active DOXYCYCLINE HYCLATE 100 MG CAPS Take one (1) tablet by mouth twice a day DOXYCYCLINE HYCLATE 10809889427 No Longer Active Ronnie Galvan MD Active HYDROCODONE-ACETAMINOPHEN 5-325 MG TABS 1 po q 6hr PRN Pain 2011 HYDROCODONE-ACETAMINOPHEN 31923367354 No Longer Active Patri joan Perez RN Active BACTRIM DS 800-160 MG TAB 1 tab by mouth twice daily 2 TRIMETHOPRIM-SULFAMETHOXAZOLE 15912819679 No Longer Active Kalpesh Dong MD Active LORTAB 5 5-500 MG TABS 1/2 to 1 tablet by mouth go ry 4 hours as needed for pain HYDROCODONE-ACETAMINOPHEN 46475929388 No Longer Active Kalpesh Dong MD Active GENERESS FE 0.8-25 MG-MCG CHEW Take one by mouth daily NORETHIN-ETH ESTRADIOL-FE 47603846106 No Longer Active Kalpesh Dong MD Active HYDROCODONE-ACETAMINOPHEN 7.5-500 MG TABS 1-2 every 4 hours as needed HYDROCODONE-ACETAMINOPHEN 64587236953 No Longer Activ e Kalpesh Dong MD Active FERROUS SULFATE 325 (65 FE) MG TABS 1 tablet by mouth twice yung y FERROUS SULFATE 13060841956 No Longer Active Kalpesh Dong MD Active IBUPROFEN 600 MG TAB 1 po q6-8hr PRN IBUPROFEN 28766895039 No Longer Active Kalpesh Dong MD Active SPIRONOLACTONE 25 MG TAB 1 tablet by mouth daily 01/22 SPIRONOLACTONE 14905731959 No Longer Active Kalpesh Dong MD Acti ve HYDROCODONE-ACETAMINOPHEN 7.5-325 MG TABS 1 po QID PRN Pain 2011 HYDROCODONE-ACETAMINOPHEN 31352252669 No Longer Active Kalpesh Dong MD Active CLINDAMYCIN HCL 300 MG CAPS 1 po q6hr x 7 days CLINDAMYCIN HCL 85716136789 No Longer Active Edilberto Marino DO Active PREDNISONE 20 MG TAB 2 tabs daily for 4 days, 1 t ab daily for 4 days, 1/2 tab daily for 4 days PREDNISONE 96119850373 No Longer Active Edilberto Marino DO Active PERCOCET 5-325 MG TABS 1 tablet by mouth every 6 hours as ne eded for pain OXYCODONE-ACETAMINOPHEN 32143467035 No Longer Active Abdirahman Rios MD Active VITAMINS TABS Take one by mouth daily MV & MIN W/FE-FA TABS 08548597992 No Longer Active Abdirahman Rios MD Active LUIS 3-0.02 MG TABS 1 tablet by mouth daily as directed DROSPIRENONE-ETHINYL ESTRADIOL 98868385659 No Longer Active Abdirahman Rios MD Active LORATADINE 10 MG TABS 1 tablet by mouth daily L ORATADINE 94018515333 No Longer Active Kalpesh Dong MD Active HYDROCODONE-ACETAMINOPHEN 5-325 MG TABS 1 po q 6hr PRN Pain 2010 HYDROCODONE-ACETAMINOPHEN 30991701441 No Longer Active Edilberto Marino DO Active BACTRIM DS 800-160 MG TAB 1 tab by mouth twice daily 2 TRIMETHOPRIM-SULFAMETHOXAZOLE 57666153705 No Longer Active Abdirahman Rios MD Active 28-0.8 MG TABS Take one by mouth daily 09/20 VIT-FE FUMARATE-FA 98649192555 No Longer Active Abdirahman Rios MD Active CIPRO 500 MG TAB 1 tablet by mouth twice daily CIPROFLOXACIN HCL 40158839637 No Longer Active Abdirahman Rios MD Active BENADRYL 25 MG CAP 1 po q8hr PRN Congestion DIPHENHYDRAMINE HCL 62463935471 No Longer Active Abdirahman Rios MD Active ZOLOFT 50 MG TAB 1 po qd SERTRALINE HCL 154246 11702 No Longer Active Abdirahman Rios MD Active AMOXICILLIN 875 MG TABS 1 tab by mouth twice daily 201 08/09/13 AMOXICILLIN 83762171564 No Longer Active Abdirahman Rios MD Activ e AMOXICILLIN 875 MG TABS 1 tab by mouth twice daily 201 07/19/27 AMOXICILLIN 28341142281 No Longer Active Abdirahman Rios MD Activ e BACTRIM DS 800-160 MG TAB 2 tab by mouth twice daily 2 TRIMETHOPRIM-SULFAMETHOXAZOLE 73237807560 No Longer Active Abdirahman Rios MD Active KEFLEX 500 MG CAP 1 po tid x 10 days CEPHALEXIN 41337441915 No Longer Active Abdirahman Rios MD Active AMOXICILLIN 875 MG TABS 1 tab by mouth twice daily 201 07/18/07 AMOXICILLIN 50429461556 No Longer Active Abdirahman Rios MD Activ e BACTRIM DS 800-160 MG TAB 2 tab by mouth twice daily 2 BACTRIM DS 800-160 MG TAB TRIMETHOPRIM-SULFAMETHOXAZOLE Inactive ZOLOFT 50 MG TAB 1 po qd ZOLOFT 50 MG TAB 3129 41 SERTRALINE HCL Inactive BENADRYL 25 MG CAP 1 po q8hr PRN Congestion BENADRYL 25 MG CAP 9168120 DIPHENHYDRAMINE HCL Inactive 28-0.8 MG TABS Take one by mouth daily 09/20 28-0.8 MG TABS VIT-FE FUMARATE-FA Inactive HYDROCODONE-ACETAMINOPHEN 5-325 MG TABS 1 po q 6hr PRN Pain 2010 HYDROCODONE-ACETAMINOPHEN 5-325 MG TABS 036710 HYDROCODONE-ACETAMINOPHEN Inactive LORATADINE 10 MG TABS 1 tablet by mouth daily LORATADINE 10 MG TABS 968877 LORATADINE Inactive LUIS 3-0.02 MG TABS 1 tablet by mouth daily as directed LUIS 3-0.02 MG TABS DROSPIRENONE-ETHINYL ESTRADIOL Inactive VITAMINS TABS Take one by mouth daily VITAMINS TABS MV & MIN W/FE-FA TABS Inactive PERCOCET 5-325 MG TABS 1 tablet by mouth every 6 hours as ne eded for pain PERCOCET 5-325 MG TABS 0950005 OXYCODONE-ACETAMIN OPHEN Inactive PREDNISONE 20 MG TAB 2 tabs daily for 4 days, 1 t ab daily for 4 days, 1/2 tab daily for 4 days PREDNISONE 20 MG TAB 991671 PREDNISON E Inactive CLINDAMYCIN HCL 300 MG CAPS 1 po q6hr x 7 days CLINDAMYCIN HCL 300 MG CAPS 004157 CLINDAMYCIN HCL Inactive HYDROCODONE-ACETAMINOPHEN 7.5-325 MG TABS 1 po QID PRN Pain 2011 HYDROCODONE-ACETAMINOPHEN 7.5-325 MG TABS 822403 HYDROCODONE-ACETAMINOPHEN Inactive SPIRONOLACTONE 25 MG TAB 1 tablet by mouth daily 01/22 SPIRONOLACTONE 25 MG TAB 333389 SPIRONOLACTONE Inactive IBUPROFEN 600 MG TAB 1 po q6-8hr PRN IBUPROFEN 600 MG TAB 479936 IBUPROFEN Inactive FERROUS SULFATE 325 (65 FE) MG TABS 1 tablet by mouth twice yung y FERROUS SULFATE 325 (65 FE) MG TABS 694230 FERROUS SULF ATE Inactive HYDROCODONE-ACETAMINOPHEN 7.5-500 MG TABS 1-2 every 4 hours as needed HYDROCODONE-ACETAMINOPHEN 7.5-500 MG TABS HYDROCODONE-ACETAMINOPHEN Inactive GENERESS FE 0.8-25 MG-MCG CHEW Take one by mouth daily GENERESS FE 0.8-25 MG-MCG CHEW 7683717 NORETHIN-ETH ESTRADIOL-FE Inactive LORTAB 5 5-500 MG [...] PRN Pain 2011 HYDROCODONE-ACETAMINOPHEN 5-325 MG TABS 925033 HYDROCODONE-ACETAMINOPHEN Inactive DOXYCYCLINE HYCLATE 100 MG CAPS Take one (1) tablet by mouth twice a day DOXYCYCLINE HYCLATE 100 MG CAPS 2088442 DOXYCYCLINE HYCLATE Inactive PENICILLIN V POTASSIUM 500 MG TAB 1 four times a day 2 PENICILLIN V POTASSIUM 500 MG TAB 823285 PENICILLIN V POTASSIUM Siri ctive PRISTIQ 50 MG [id number] 1 po qd PRISTIQ 50 MG [id number] DESVENLAFAXINE SUCCINATE Inactive TYLENOL/CODEINE #3 300-30 MG TAB 1-2 po q6hr PRN Pain TYLENOL/CODEINE #3 300-30 MG TAB 277520 ACETAMINOPHEN-CODEINE Inact krishna CEPHALEXIN 500 MG TABS Take one by mouth four times daily, morning, noon, early evening and bedtime. CEPHALEXIN 500 MG TABS 600335 CEPHALEXIN Inactive LORTAB 5 5-500 MG TABS 1/2 to 1 tablet by mouth go ry 6 hours as needed for pain LORTAB 5 5-500 MG TABS HYDROCODONE-A CETAMINOPHEN Inactive AMITRIPTYLINE HCL 25 MG TAB 1 tab by mouth daily 60 minutes before bedtime AMITRIPTYLINE HCL 25 MG TAB 214948 AMITRIPTYLINE HCL Inactive AMOXICILLIN 500 MG TABS 2 tabs PO bid x 10 d 7 AMOXICILLIN 500 MG TABS 605873 AMOXICILLIN Inactive IMPLANON 68 MG IMPL IMPLANTED IN LEFT ARM IMPLANON 68 MG IMPL ETONOGESTREL Inactive HYDROCODONE-ACETAMINOPHEN 5-325 MG TABS 1 PO tid PRN pain 5 HYDROCODONE-ACETAMINOPHEN 5-325 MG TABS 369887 HYDROCODONE-ACETAMIN OPHEN Inactive BACTRIM DS 800-160 MG TAB 1 tab by mouth twice daily 2 BACTRIM DS 800-160 MG TAB TRIMETHOPRIM-SULFAMETHOXAZOLE Inac tive CEPHALEXIN 500 MG CAPS 1 PO bid x 7 days CEPHALEXIN 500 MG CAPS 277777 CEPHALEXIN Inactive HYDROCODONE-ACETAMINOPHEN 5-325 MG TABS 1 tab by mouth every 6 hours as needed HYDROCODONE-ACETAMINOPHEN 5-325 MG TABS 206067 HYDROCODONE-ACETAMINOPHEN Inactive PROMETHAZINE-CODEINE 6.25-10 MG/5ML SYRP 1 tsp every 6 hrs prn c ough PROMETHAZINE-CODEINE 6.25-10 MG/5ML SYRP 427191 PROMETH AZINE-CODEINE Inactive IBUPROFEN 800 MG TAB 1 pill three times daily as needed for pain IBUPROFEN 800 MG TAB 467801 IBUPROFEN Inactive KEFLEX 500 MG CAP 1 tab po tid KEFLEX 500 MG CAP 545886 CEPHALEXIN Inactive HYDROCODONE-ACETAMINOPHEN 7.5-325 MG TABS 1 four times a day as needed for pain HYDROCODONE-ACETAMINOPHEN 7.5-325 MG TABS 133560 HYDROCODONE-ACETAMINOPHEN Inactive BACTRIM DS 800-160 MG TABS by mouth twice a day 11/05 BACTRIM DS 800-160 MG TABS SULFAMETHOXAZOLE-TRIMETHOPRIM Inactive IBUPROFEN 800 MG TABS 1 tid prn IBUPROFEN 800 MG TABS 366670 IBUPROFEN Inactive ENDOCET 10-325 MG TABS 1 q 6 hr prn ENDOC ET 10-325 MG TABS 6470620 OXYCODONE-ACETAMINOPHEN Inactive HYDROCODONE-ACETAMINOPHEN 7.5-325 MG TABS 1 by mouth e very 6 hours as needed for pain HYDROCODONE-ACETAMINOPHEN 7.5-325 MG TABS 569161 HYDROCODONE-ACETAMINOPHEN Inactive PERCOCET 7.5-325 MG TABS 1 PO q 8 hrs PRN pain PERCOCET 7.5-325 MG TABS 4487212 OXYCODONE-ACETAMINOPHEN Inactive LIDODERM 5 % PTCH One patch to painful area CT N. On for 12 hrs, off for 12 hrs. LIDODERM 5 % PTCH 8103090 LIDOCAINE Inactiv e PERCOCET 7.5-325 MG TABS 1 PO tid PRN pain PERCOCET 7.5- 325 MG TABS 3085973 OXYCODONE-ACETAMINOPHEN Inactive MOBIC 15 MG TABS 1 tab daily MOBIC 15 MG TABS 15 2695 MELOXICAM Inactive CYCLOBENZAPRINE HCL 10 MG TABS 1/2 - 1 tab PO tid PRN back p ain, muscle spasm CYCLOBENZAPRINE HCL 10 MG TABS 636764 CYCLOBENZA JOSEPH HCL Inactive LORATADINE 10 MG TABS 1 tablet by mouth daily LORATADINE 10 MG TABS 620000 LORATADINE Inactive HYDROCODONE-ACETAMINOPHEN 10-325 MG TABS 1 by mouth ev chaka 8 hours as needed for pain HYDROCODONE-ACETAMINOPHEN 10-325 MG TABS 959932 HYDROCODONE-ACETAMINOPHEN Inactive LC-5 LIDOCAINE 5 % CREA apply 1 time daily to affected area 2013 LC-5 LIDOCAINE 5 % CREA LIDOCAINE (ANORECTAL) In active PERCOCET 5-325 MG TAB 1 every 6 hours as needed PERCOCET 5-325 MG TAB 2232678 OXYCODONE-ACETAMINOPHEN Inactive KEFLEX 500 MG CAP 1 po qid KEFLEX 500 MG CAP 30 9114 CEPHALEXIN Inactive PROAIR HFA 108 (90 BASE) MCG/ACT AERS 2 puff q 4-6 hrs PRN 01/24 PROAIR HFA 108 (90 BASE) MCG/ACT AERS ALBUTEROL SULFATE Inactive PERCOCET 10-325 MG ORAL TABS 1 every 4 hours as needed PERCOCET 10-325 MG ORAL TABS 5991293 OXYCODONE-ACETAMINOPHEN Inactiv e EMLA 2.5-2.5 % EXT CREA apply to skin lesion q 6 hours, prn 2014 EMLA 2.5-2.5 % EXT CREA 221401 LIDOCAINE-PRILOCAINE Neffs ctive PERCOCET 10-325 MG TABS 1 tab by mouth every 6 hours , use sparingly for severe pain PERCOCET 10-325 MG TABS 1559166 OXYCODONE-ACETAMINOPHEN Inactive GLUCOPHAGE 500 MG ORAL TABS one by mouth 3 times a day GLUCOPHAGE 500 MG ORAL TABS 052382 METFORMIN HCL Inactive AMOXICILLIN 875 MG TABS 1 tab by mouth twice daily 201 07/18/07 AMOXICILLIN 875 MG TABS 353358 AMOXICILLIN Inactive KEFLEX 500 MG CAP 1 po tid x 10 days KEFLEX 500 MG CAP 321733 CEPHALEXIN Inactive AMOXICILLIN 875 MG TABS 1 tab by mouth twice daily 201 07/19/27 AMOXICILLIN 875 MG TABS 107412 AMOXICILLIN Inactive AMOXICILLIN 875 MG TABS 1 tab by mouth twice daily 201 08/09/13 AMOXICILLIN 875 MG TABS 061833 AMOXICILLIN Inactive CIPRO 500 MG TAB 1 tablet by mouth twice daily CIPRO 500 MG TAB 625572 CIPROFLOXACIN HCL Inactive BACTRIM DS 800-160 MG TAB 1 tab by mouth twice daily 2 BACTRIM DS 800-160 MG TAB TRIMETHOPRIM-SULFAMETHOXAZOLE Inac tive LEVAQUIN 500 MG TABS 1 PO q day x 7 days LEVAQUIN 500 MG TABS 707337 LEVOFLOXACIN Inactive CLINDAMYCIN HCL 300 MG CAPS 1 po QID x 7 days CLINDAMYCIN HCL 300 MG CAPS 466221 CLINDAMYCIN HCL Inactive AUGMENTIN 875-125 MG TAB 1 tab by mouth twice daily with food 20 22/05/07 AUGMENTIN 875-125 MG TAB 752280 AMOXICILLIN-POT CLAVULA [place] Inactive DIFLUCAN 150 MG TAB 1 qODay x 2 doses DIFLUCAN 150 MG TAB 876168 FLUCONAZOLE Inactive PREDNISONE 20 MG TAB 2 tabs daily for 3 days, 1 t ab daily for 3 days, 1/2 tab daily for 2 days PREDNISONE 20 MG TAB 001943 PREDNISON E Inactive AUGMENTIN 875-125 MG TAB 1 tab by mouth twice daily with food 20 21/10/13 AUGMENTIN 875-125 MG TAB 176817 AMOXICILLIN-POT CLAVULA [place] Inactive Advance Directives Directive Description Start Date PERMISSION TO SHARE Immunizations Vaccine Administration Date Value Standard Alf cription Seasonal influenza vaccine, injectable, containing preservative, for > 3 years old (Afluria, FluLaval, Fluzone, Fluvirin, Fluarix, Agriflu(>= 18 yo)) Fluzone (>3 yrs.) [[id number]] Influenza, seasonal, inject able Seasonal influenza vaccine, injectable, preservative free, for > 3 years old (Afluria, FluLaval, Fluzone, Fluvirin, Fluarix, Agriflu(>= 18 yo)) Fluzone preservative free (>3 yrs.) [[id number]] Influenza, seasonal, injectable, preservative free Seasonal influenza vaccine, injectable, containing preservative, for > 3 years old (Afluria, FluLaval, Fluzone, Fluvirin, Fluarix, Agriflu(>= 18 yo)) Fluzone (>3 yrs.) [[id number]] Influenza, seasonal, inject able Seasonal influenza vaccine, injectable, containing preservative, for > 3 years old (Afluria, FluLaval, Fluzone, Fluvirin, Fluarix, Agriflu(>= 18 yo)) Fluzone (>3 yrs.) [[id number]] Influenza, seasonal, inject able dT (Diphtheria and [...] Panel - Chemistry sodium, serum 142 mmol/L 338-610 0926/05/12 potassium, serum 4.8 mmol/L 3.5-5.2 chloride, serum [...] Panel - Chemistry cholesterol, serum 165 mg/dL 865-482 8203/05/12 triglyceride, serum, fasting 524 mg/dL 30-200 HDL [...] negative Encounters Code Encounter Date Provider Facility CPT-55187 Level 3 Est. Patient 14:29:53 CDT Abhinav Galvan MD [facility] CPT-82334 Level 2 Est. Patient 16:33:01 CDT Kalpesh goins MD -[id number] Level 4 Est. Patient 16:44:56 CDT Abdirahman Rios MD [facility] CPT-05002 Level 2 Est. Patient 07:49:32 CDT Kalpesh goins MD [facility] CPT-87182 Level 3 New Patient 15:47:11 SAILING MASTER Bj huber MD [facility] CPT-56074 Level 4 Est. Patient 14:37:38 SAILING MASTER Abdirahman Rios MD [facility]-58720 Level 2 Est. Patient 13:32:17 SAILING MASTER Kalpesh goins MD -[id number] Level 3 Est. Patient 17:32:57 SAILING MASTER Edilberto tiwari [facility] CPT-34861 Level 3 Est. Patient 17:22:33 SAILING MASTER Edilberto tiwari [facility] CPT-37101 Level 2 Est. Patient 16:57:09 SAILING MASTER Kalpesh goins MD -[id number] Level 3 Est. Patient 14:03:08 SAILING MASTER Abdirahman Rios MD [facility] CPT-40140 Level 3 Est. Patient 18:12:34 CDT Shola Wright [facility] CPT-53075 Level 3 Est. Patient 19:34:46 CDT Shola Wright [facility] CPT-74473 Level 3 Est. Patient 14:19:37 CDT Abdirahman Rios MD [facility]-81831 Level 3 Est. Patient 14:11:58 CDT Kalpesh goins MD -[id number] Level 3 Est. Patient 16:50:00 CDT Maliheh Z iglari [facility] CPT-39323 Level 3 Est. Patient 17:11:32 SAILING MASTER Brandie bates MD PhD [facility]-50920 Level 3 Est. Patient 16:31:47 SAILING MASTER Shola Wright [facility] CPT-26193 Level 3 Est. Patient 17:51:10 SAILING MASTER Abhinav Galvan MD [facility]-19076 Level 4 Est. Patient 12:54:56 SAILING MASTER Kalpesh goins MD -[id number] Level 4 Est. Patient 12:53:56 SAILING MASTER Kalpesh goins MD -[id number] Level 3 Est. Patient 17:56:58 CDT Shola Wright [facility] CPT-20989 Level 3 Est. Patient 14:26:20 CDT Janak Maurizioamira butcher [facility] CPT-11584 Level 3 Est. Patient 09:38:41 CDT Shola Houghsabi [facility] CPT-66588 Level 3 Est. Patient 14:45:26 CDT Edilberto tiwari [facility]-81894 Level 3 Est. Patient 10:51:33 CDT Hira muniz [facility]-11557 Level 3 Est. Patient 11:57:55 SAILING MASTER Shola Wright [facility]-88466 Level 3 Est. Patient 09:53:33 SAILING MASTER Edilberto tiwari [facility] CPT-71732 Level 3 Est. Patient 14:42:54 SAILING MASTER Abhinav Galvan MD [facility]-80982 Level 3 Est. Patient 15:10:02 CDT Janak Stevenamira butcher [facility] CPT-27849 Level 3 Est. Patient 15:20:20 CDT Theo dennis MD [facility] CPT-08498 Level 2 Est. Patient 14:08:57 CDT Kalpesh goins MD [facility] CPT-13996 Level 3 Est. Patient 13:56:19 CDT Abdirahman Rios MD [facility] CPT-12253 Level 3 Est. Patient 13:59:37 CDT Abdirahman Rios MD [facility] CPT-09772 Level 2 Est. Patient 14:44:59 CDT Kalpesh goins MD [facility] CPT-51615 Level 3 Est. Patient 06:06:23 CDT Edilberto tiwari DO [facility] CPT-58521 Level 3 Est. Patient 15:23:54 CDT Abdirahman Rios MD [facility] CPT-87959 Level 3 Est. Patient 15:43:49 CDT Abdirahman Rios MD [facility] CPT-54139 Level 3 Est. 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 Patient 10:56:43 CDT Abdirahman Rios MD [facility] [place] CPT-67633 Level 3 Est. Patient 18:24:52 CDT Abdirahman Rios MD [facility] [place] CPT-46948 Level 3 Est. Patient 13:27:22 CDT Abdirahman Rios MD [facility] [place] Procedures Code Procedure Name Date Entry Date Standard Desc ription CPT-50584 Postop F/U Visit 15:27:43 CDT CPT-18142 Postop F/U Visit 14:40:59 CDT CPT-14618 Postop F/U Visit 15:02:46 CDT CPT-40349 Postop F/U Visit 11:29:00 [employer] [employer] CPT-J0696 Rocephin 1000 mg (Ceftriaxone) 17:22:33 [employer] [employer] CPT-06081 Postop F/U Visit 18:41:07 [employer] [employer] CPT-37791 Postop F/U Visit 08:19:08 [employer] [employer] CPT-20261 Immunization Single Admin 16:41:53 CDT 2013 CPT-69837 Fluzone Quadrivalent Intramuscular Suspe nsion 0.5 ML 16:41:53 CDT CPT-OV Office Visit 16:39:18 CDT CPT-OV Office Visit 16:16:36 CDT CPT-OV Office Visit 15:34:48 CDT CPT-35221 Postop F/U Visit 14:50:12 CDT CPT-75622 Postop F/U Visit 14:41:10 CDT CPT-48828 Venipuncture Draw Fee 11:38:04 [employer] CPT-41612 Postop F/U Visit 19:02:59 [employer] [employer] CPT-80387 Postop F/U Visit 12:04:54 [employer] [employer] CPT-78990 Administration single or combination vac cine inc oral 15:56:43 CDT CPT-06424 Influenza split virus > age 3 15:56:43 CDT CPT-96379 Hand comp min 3V 14:25:19 CDT CPT-86598 Postop F/U Visit 21:40:51 CDT CPT-11259 Postop F/U Visit 10:58:43 CDT CPT-33686 Administration single or combination vac cine inc oral 12:33:54 [employer] [employer] CPT-52971 Influenza Preservative Free split virus >age 3 12:33:54 [employer] CPT-95597 Administration single or combination vac cine inc oral 09:30:51 CDT CPT-46918 Influenza split virus > age 3 09:30:51 CDT CPT-01830 Postop F/U Visit 15:14:53 CDT CPT-80259 Postop F/U Visit 13:50:14 CDT CPT-98049 Postop F/U Visit 13:34:52 CDT CPT-OV Office Visit 16:55:03 CDT CPT-48915 [place] of cervix w bx ECC 13:32:50 CDT 10/19 CPT-J1885 Toradol 60 mg (Ketorolac) 15:31:59 CDT 2011 CPT-J1885 Toradol 60 mg (Ketorolac) 15:23:54 CDT 2011 CPT-63208 Visit 11:34:37 [employer] [employer] CPT-12952 Visit 10:52:39 [employer] [employer] CPT-60406 Visit 10:12:02 [employer] [employer] CPT-59061 Visit 11:22:43 [employer] [employer] CPT-99929 Visit 11:24:12 [employer] [employer] CPT-67357 Visit 10:47:05 [employer] [employer] CPT-OV Office Visit 10:26:16 [employer] [employer] CPT-OV Office Visit 15:34:31 [employer] [employer] CPT-25444 Visit 10:42:08 [employer] [employer] CPT-97344 Visit 10:52:45 [employer] [employer] CPT-000 Give Appropriate Flu Vaccine 16:56:41 CDT 2 CPT-55370 Administration single or combination vac cine inc oral 10:33:21 CDT CPT-94227 Influenza split virus > age 3 10:33:21 CDT CPT-98534 Visit 13:23:09 CDT CPT-25327 Visit 18:24:52 CDT CPT-63634 Sono OB comp > 14 weeks 12:07:49 CDT 04/07
--- OUTSIDE RECORDS SUMMARY | 2020-01-18 15:51 | XMS REPORT | Clinical Summary ---
Author Author Admin, Jeri Rashid Organization [facility] Address Unknown Phone Unavailable Allergies, Adverse Reactions, [...] Julian MD Dysuria Hypoglycemia 251.2 Active Joann Grace RMA Hypoglycemia, unspecified Anxiety 300.00 Active Joann Grace [...] Jose M Julian MD HIDRADENITIS SUPPURATIVA ICD-705.83 Jose M Julian MD MODERATE DYSPLASIA OF [...] BACK PAIN, LUMBAR, CHRONIC ICD-724.2 Inactive John casianojacque Mario Dysmenorrhea, severe ICD-625.3 Inactive Kalpesh Dong MD Abnormal vaginal bleeding ICD-626.9 Inactive Kalpehs Dong MD AFTERCARE FOLLOW SURGERY SYSTEM NEC [...] Impetigo ICD-684 Inactive Abdirahman Rios MD 08/24 Medication List Medication Instructions Start Date Stop Date Generic Name NDC Status Provider Patient Instruction PERCOCET 10-325 MG ORAL TABS 1 every 4 hours as needed OXYCODONE-ACETAMINOPHEN 81200932537 Active Kalpesh Dong MD Active PROAIR HFA 108 (90 BASE) MCG/ACT AERS 2 puff q 4-6 hrs PRN 01/24 ALBUTEROL SULFATE 24964401877 No Longer Active Kalpesh Dong MD Active ALPRAZOLAM 0.5 MG TABS 1 po BID PRN Anxiety ALPRA ZOLAM 98334485270 Active Abdirahman Rios MD Active EMLA 2.5-2.5 % EXT CREA apply to skin lesion q 6 hours, prn LIDOCAINE-PRILOCAINE 88245670535 Active Hira Moser APRN Active CYCLOBENZAPRINE HCL 10 MG TABS 1 tablet by mouth three times daily as needed for muscle spasm/pain CYCLOBENZAPRINE HCL 24567436195 Active Abdirahman Rios MD Active PREDNISONE 20 MG TAB 2 tabs daily for 3 days, 1 t ab daily for 3 days, 1/2 tab daily for 2 days PREDNISONE 35606059880 No Longer Active Abdirahman Rios MD Active KEFLEX 500 MG CAP 1 po qid CEPHALEXIN 217392969 20 No Longer Active Kalpesh Dong MD Active PERCOCET 5-325 MG TAB 1 every 6 hours as needed OXYCODONE-ACETAMINOPHEN 80710083442 No Longer Active Shola MCGILL Active LC-5 LIDOCAINE 5 % CREA apply 1 time daily to affected area 2013 LIDOCAINE (ANORECTAL) 25694137697 No Longer Active Hira muniz APRN Active HYDROCODONE-ACETAMINOPHEN 5-325 MG TABS 2 tablets by m outh every 8 hours as needed for pain HYDROCODONE-ACETAMINOPHEN 12409426072 Acti ve Abdirahman Rios MD Active HYDROCODONE-ACETAMINOPHEN 10-325 MG TABS 1 by mouth ev chaka 8 hours as needed for pain HYDROCODONE-ACETAMINOPHEN 18518207496 No Longer Active Hira Moser APRN Active LORATADINE 10 MG TABS 1 tablet by mouth daily L ORATADINE 48605210939 No Longer Active Hira Moser APRN Active DIFLUCAN 150 MG TAB 1 qODay x 2 doses FLUCONAZO LE 73356858012 No Longer Active Jillina Joyzell SIMULATION EDUCATOR Active CYCLOBENZAPRINE HCL 10 MG TABS 1/2 - 1 tab PO tid PRN back p ain, muscle spasm CYCLOBENZAPRINE HCL 13261234838 No Longer Active Karen herson Frazell SIMULATION EDUCATOR Active AUGMENTIN 875-125 MG TAB 1 tab by mouth twice daily with food 20 22/05/07 AMOXICILLIN-POT CLAVULANATE 90960746378 No Longer Active Loida Rios MD Active MOBIC 15 MG TABS 1 tab daily MELOXICAM 611058887 14 No Longer Active Abdirahman Rios MD Active PERCOCET 7.5-325 MG TABS 1 PO tid PRN pain OXYCODONE-ACETAMINOPHEN 82565970533 No Longer Active Abdirahman Rios MD Active LIDODERM 5 % PTCH One patch to painful area [place] N. On for 12 hrs, off for 12 hrs. LIDOCAINE 41260122536 No Longer Active Abdirahman Rios MD Active PERCOCET 7.5-325 MG TABS 1 PO q 8 hrs PRN pain OXYCODONE-ACETAMINOPHEN 54137633903 No Longer Active Shola MCGILL Active HYDROCODONE-ACETAMINOPHEN 7.5-325 MG TABS 1 by mouth e very 6 hours as needed for pain HYDROCODONE-ACETAMINOPHEN 66399523650 No Longer Active Good Julian MD Active CLINDAMYCIN HCL 300 MG CAPS 1 po QID x 7 days CLINDAMYCIN HCL 26271425731 No Longer Active Abdirahman Rios MD Activ e BACTRIM DS 800-160 MG TABS 1 po BID x 7 days 5 SULFAMETHOXAZOLE-TRIMETHOPRIM 32161706359 No Longer Active Abdirahman Rios MD Active ENDOCET 10-325 MG TABS 1 q 6 hr prn OXYCODONE-ACETAMINOPHEN 72569832927 No Longer Active Abdirahman Rios MD Active IBUPROFEN 800 MG TABS 1 tid prn IBUPROFEN 776335 04513 No Longer Active Abdirahman Rios MD Active BACTRIM DS 800-160 MG TABS by mouth twice a day 11/05 SULFAMETHOXAZOLE-TRIMETHOPRIM 44439198577 No Longer Active Good Julian MD Active HYDROCODONE-ACETAMINOPHEN 7.5-325 MG TABS 1 four times a day as needed for pain HYDROCODONE-ACETAMINOPHEN 95225201188 No Longer Activ e Good Julian MD Active KEFLEX 500 MG CAP 1 tab po tid CEPHALEXIN 067709 71557 No Longer Active Matthewllina Shanti RIVAS Active IBUPROFEN 800 MG TAB 1 pill three times daily as needed for pain IBUPROFEN 97293272343 No Longer Active Kalpesh Dong MD Active PROMETHAZINE-CODEINE 6.25-10 MG/5ML SYRP 1 tsp every 6 hrs prn c ough PROMETHAZINE-CODEINE 74563784925 No Longer Active Kalpesh Carr Active HYDROCODONE-ACETAMINOPHEN 5-325 MG TABS 1 tab by mouth every 6 hours as needed HYDROCODONE-ACETAMINOPHEN 92341068067 No Longer Activ e Shola MCGILL Active CEPHALEXIN 500 MG CAPS 1 PO bid x 7 days CEPHAL EXIN 25789759941 No Longer Active Shola MCGILL Active BACTRIM DS 800-160 MG TAB 1 tab by mouth twice daily 2 TRIMETHOPRIM-SULFAMETHOXAZOLE 57544713988 No Longer Active Kalpesh Dong MD Active HYDROCODONE-ACETAMINOPHEN 5-325 MG TABS 1 PO tid PRN pain 5 HYDROCODONE-ACETAMINOPHEN 73506486519 No Longer Active Abhinav Galvan MD Active IMPLANON 68 MG IMPL IMPLANTED IN LEFT ARM ETONO GESTREL 62432461740 No Longer Active Jillina Shanti ANDRADEN Active AMOXICILLIN 500 MG TABS 2 tabs PO bid x 10 d AM OXICILLIN 99142259784 No Longer Active Kalpesh Dong MD Active LEVAQUIN 500 MG TABS 1 PO q day x 7 days LEVOFL OXACIN 70211367175 No Longer Active Shola MCGILL Active FIORICET 50-325-40 MG TABS 2 PO q 8 hrs PRN FOSTER [id number] Active Abdirahman Rios MD Active AMITRIPTYLINE HCL 25 MG TAB 1 tab by mouth daily 60 minutes before bedtime AMITRIPTYLINE HCL 72365264566 No Longer Active Shola MCGILL Active LORTAB 5 5-500 MG TABS 1/2 to 1 tablet by mouth go ry 6 hours as needed for pain HYDROCODONE-ACETAMINOPHEN 08799420955 No Longer Active Shola MCGILL Active CEPHALEXIN 500 MG TABS Take one by mouth four times daily, morning, noon, early evening and bedtime. CEPHALEXIN 07567309924 No Long er Active Hira Moser APRN Active TYLENOL/CODEINE #3 300-30 MG TAB 1-2 po q6hr PRN Pain ACETAMINOPHEN-CODEINE 94644898402 No Longer Active Edilberto Marino DO Active PRISTIQ 50 MG [id number] 1 po qd DESVENLAFAXI NE SUCCINATE 38289398434 No Longer Active Edilberto Marino DO Active PENICILLIN V POTASSIUM 500 MG TAB 1 four times a day 2 PENICILLIN V POTASSIUM 38661206156 No Longer Active Edilberto Marino DO Active DOXYCYCLINE HYCLATE 100 MG CAPS Take one (1) tablet by mouth twice a day DOXYCYCLINE HYCLATE 71347112147 No Longer Active Ronnie Galvan MD Active HYDROCODONE-ACETAMINOPHEN 5-325 MG TABS 1 po q 6hr PRN Pain 2011 HYDROCODONE-ACETAMINOPHEN 22212370556 No Longer Active Patri joan Lock RN Active BACTRIM DS 800-160 MG TAB 1 tab by mouth twice daily 2 TRIMETHOPRIM-SULFAMETHOXAZOLE 07821527780 No Longer Active Kalpesh Dong MD Active LORTAB 5 5-500 MG TABS 1/2 to 1 tablet by mouth go ry 4 hours as needed for pain HYDROCODONE-ACETAMINOPHEN 00503082453 No Longer Active Kalpesh Dong MD Active GENERESS FE 0.8-25 MG-MCG CHEW Take one by mouth daily NORETHIN-ETH ESTRADIOL-FE 93063005057 No Longer Active Kalpesh Dong MD Active HYDROCODONE-ACETAMINOPHEN 7.5-500 MG TABS 1-2 every 4 hours as needed HYDROCODONE-ACETAMINOPHEN 39748396180 No Longer Activ e Kalpesh Dong MD Active FERROUS SULFATE 325 (65 FE) MG TABS 1 tablet by mouth twice yung y FERROUS SULFATE 14836170265 No Longer Active Kalpesh Dong MD Active IBUPROFEN 600 MG TAB 1 po q6-8hr PRN IBUPROFEN 82656015629 No Longer Active Kalpesh Dong MD Active SPIRONOLACTONE 25 MG TAB 1 tablet by mouth daily 01/22 SPIRONOLACTONE 03507362814 No Longer Active Kalpesh Dong MD Acti ve HYDROCODONE-ACETAMINOPHEN 7.5-325 MG TABS 1 po QID PRN Pain 2011 HYDROCODONE-ACETAMINOPHEN 57832078701 No Longer Active Kalpesh Dong MD Active CLINDAMYCIN HCL 300 MG CAPS 1 po q6hr x 7 days CLINDAMYCIN HCL 96058273155 No Longer Active Edilberto Marino DO Active PREDNISONE 20 MG TAB 2 tabs daily for 4 days, 1 t ab daily for 4 days, 1/2 tab daily for 4 days PREDNISONE 81133687964 No Longer Active Edilberto Marino DO Active PERCOCET 5-325 MG TABS 1 tablet by mouth every 6 hours as ne eded for pain OXYCODONE-ACETAMINOPHEN 87874458763 No Longer Active Abdirahman Rios MD Active VITAMINS TABS Take one by mouth daily MV & MIN W/FE-FA TABS 77429884887 No Longer Active Abdirahman Rios MD Active LUIS 3-0.02 MG TABS 1 tablet by mouth daily as directed DROSPIRENONE-ETHINYL ESTRADIOL 92285733507 No Longer Active Abdirahman Rios MD Active LORATADINE 10 MG TABS 1 tablet by mouth daily L ORATADINE 63260221286 No Longer Active Kalpesh Dong MD Active HYDROCODONE-ACETAMINOPHEN 5-325 MG TABS 1 po q 6hr PRN Pain 2010 HYDROCODONE-ACETAMINOPHEN 62835059254 No Longer Active Edilberto Marino DO Active BACTRIM DS 800-160 MG TAB 1 tab by mouth twice daily 2 TRIMETHOPRIM-SULFAMETHOXAZOLE 70311232357 No Longer Active Abdirahman Rios MD Active 28-0.8 MG TABS Take one by mouth daily 09/20 VIT-FE FUMARATE-FA 62543196268 No Longer Active Abdirahman Rios MD Active CIPRO 500 MG TAB 1 tablet by mouth twice daily CIPROFLOXACIN HCL 89837333199 No Longer Active Abdirahman Rios MD Active BENADRYL 25 MG CAP 1 po q8hr PRN Congestion DIPHENHYDRAMINE HCL 28688971364 No Longer Active Abdirahman Rios MD Active ZOLOFT 50 MG TAB 1 po qd SERTRALINE HCL 327810 82819 No Longer Active Abdirahman Rios MD Active AMOXICILLIN 875 MG TABS 1 tab by mouth twice daily 201 08/09/13 AMOXICILLIN 72662556781 No Longer Active Abdirahman Rios MD Activ e AMOXICILLIN 875 MG TABS 1 tab by mouth twice daily 201 07/19/27 AMOXICILLIN 03765286487 No Longer Active Abdirahman Rios MD Activ e BACTRIM DS 800-160 MG TAB 2 tab by mouth twice daily 2 TRIMETHOPRIM-SULFAMETHOXAZOLE 13582279510 No Longer Active Abdirahman Rios MD Active KEFLEX 500 MG CAP 1 po tid x 10 days CEPHALEXIN 43670459925 No Longer Active Abdirahman Rios MD Active AMOXICILLIN 875 MG TABS 1 tab by mouth twice daily 201 07/18/07 AMOXICILLIN 70293683300 No Longer Active Abdirahman Rios MD Activ e BACTRIM DS 800-160 MG TAB 2 tab by mouth twice daily 2 BACTRIM DS 800-160 MG TAB TRIMETHOPRIM-SULFAMETHOXAZOLE Inactive ZOLOFT 50 MG TAB 1 po qd ZOLOFT 50 MG TAB 3129 41 SERTRALINE HCL Inactive BENADRYL 25 MG CAP 1 po q8hr PRN Congestion BENADRYL 25 MG CAP 4620720 DIPHENHYDRAMINE HCL Inactive 28-0.8 MG TABS Take one by mouth daily 09/20 28-0.8 MG TABS VIT-FE FUMARATE-FA Inactive HYDROCODONE-ACETAMINOPHEN 5-325 MG TABS 1 po q 6hr PRN Pain 2010 HYDROCODONE-ACETAMINOPHEN 5-325 MG TABS 434204 HYDROCODONE-ACETAMINOPHEN Inactive LORATADINE 10 MG TABS 1 tablet by mouth daily LORATADINE 10 MG TABS 740303 LORATADINE Inactive LUIS 3-0.02 MG TABS 1 tablet by mouth daily as directed LUIS 3-0.02 MG TABS DROSPIRENONE-ETHINYL ESTRADIOL Inactive VITAMINS TABS Take one by mouth daily VITAMINS TABS MV & MIN W/FE-FA TABS Inactive PERCOCET 5-325 MG TABS 1 tablet by mouth every 6 hours as ne eded for pain PERCOCET 5-325 MG TABS 5199946 OXYCODONE-ACETAMIN OPHEN Inactive PREDNISONE 20 MG TAB 2 tabs daily for 4 days, 1 t ab daily for 4 days, 1/2 tab daily for 4 days PREDNISONE 20 MG TAB 173540 PREDNISON E Inactive CLINDAMYCIN HCL 300 MG CAPS 1 po q6hr x 7 days CLINDAMYCIN HCL 300 MG CAPS 266138 CLINDAMYCIN HCL Inactive HYDROCODONE-ACETAMINOPHEN 7.5-325 MG TABS 1 po QID PRN Pain 2011 HYDROCODONE-ACETAMINOPHEN 7.5-325 MG TABS 710364 HYDROCODONE-ACETAMINOPHEN Inactive SPIRONOLACTONE 25 MG TAB 1 tablet by mouth daily 01/22 SPIRONOLACTONE 25 MG TAB 604303 SPIRONOLACTONE Inactive IBUPROFEN 600 MG TAB 1 po q6-8hr PRN IBUPROFEN 600 MG TAB 048782 IBUPROFEN Inactive FERROUS SULFATE 325 (65 FE) MG TABS 1 tablet by mouth twice yung y FERROUS SULFATE 325 (65 FE) MG TABS 845459 FERROUS SULF ATE Inactive HYDROCODONE-ACETAMINOPHEN 7.5-500 MG [...] PRN Pain 2011 HYDROCODONE-ACETAMINOPHEN 5-325 MG TABS 933869 HYDROCODONE-ACETAMINOPHEN Inactive DOXYCYCLINE HYCLATE 100 MG CAPS Take one (1) tablet by mouth twice a day DOXYCYCLINE HYCLATE 100 MG CAPS 765126 DOXYCYCLINE HYCLATE Inactive PENICILLIN V POTASSIUM 500 MG TAB 1 four times a day 2 PENICILLIN V POTASSIUM 500 MG TAB 364555 PENICILLIN V POTASSIUM [place] ctive PRISTIQ 50 MG [id number] 1 po qd PRISTIQ 50 MG [id number] DESVENLAFAXINE SUCCINATE Inactive TYLENOL/CODEINE #3 300-30 MG TAB 1-2 po q6hr PRN Pain TYLENOL/CODEINE #3 300-30 MG TAB 524553 ACETAMINOPHEN-CODEINE Inact krishna CEPHALEXIN 500 MG TABS Take one by mouth four times daily, morning, noon, early evening and bedtime. CEPHALEXIN 500 MG TABS 762888 CEPHALEXIN Inactive LORTAB 5 5-500 MG TABS 1/2 to 1 tablet by mouth go ry 6 hours as needed for pain LORTAB 5 5-500 MG TABS HYDROCODONE-A CETAMINOPHEN Inactive AMITRIPTYLINE HCL 25 MG TAB 1 tab by mouth daily 60 minutes before bedtime AMITRIPTYLINE HCL 25 MG TAB 370477 AMITRIPTYLINE HCL Inactive AMOXICILLIN 500 MG TABS 2 tabs PO bid x 10 d 7 AMOXICILLIN 500 MG TABS 405538 AMOXICILLIN Inactive IMPLANON 68 MG IMPL IMPLANTED IN LEFT ARM IMPLANON 68 MG IMPL ETONOGESTREL Inactive HYDROCODONE-ACETAMINOPHEN 5-325 MG TABS 1 PO tid PRN pain 5 HYDROCODONE-ACETAMINOPHEN 5-325 MG TABS 414775 HYDROCODONE-ACETAMIN OPHEN Inactive BACTRIM DS 800-160 MG TAB 1 tab by mouth twice daily 2 BACTRIM DS 800-160 MG TAB TRIMETHOPRIM-SULFAMETHOXAZOLE Inac tive CEPHALEXIN 500 MG CAPS 1 PO bid x 7 days CEPHALEXIN 500 MG CAPS 961146 CEPHALEXIN Inactive HYDROCODONE-ACETAMINOPHEN 5-325 MG TABS 1 tab by mouth every 6 hours as needed HYDROCODONE-ACETAMINOPHEN 5-325 MG TABS 799360 HYDROCODONE-ACETAMINOPHEN Inactive PROMETHAZINE-CODEINE 6.25-10 MG/5ML SYRP 1 tsp every 6 hrs prn c ough PROMETHAZINE-CODEINE 6.25-10 MG/5ML SYRP 767810 PROMETH AZINE-CODEINE Inactive IBUPROFEN 800 MG TAB 1 pill three times daily as needed for pain IBUPROFEN 800 MG TAB 747709 IBUPROFEN Inactive KEFLEX 500 MG CAP 1 tab po tid KEFLEX 500 MG CAP 015893 CEPHALEXIN Inactive HYDROCODONE-ACETAMINOPHEN 7.5-325 MG TABS 1 four times a day as needed for pain HYDROCODONE-ACETAMINOPHEN 7.5-325 MG TABS 052561 HYDROCODONE-ACETAMINOPHEN Inactive BACTRIM DS 800-160 MG TABS by mouth twice a day 11/05 BACTRIM DS 800-160 MG TABS SULFAMETHOXAZOLE-TRIMETHOPRIM Inactive IBUPROFEN 800 MG TABS 1 tid prn IBUPROFEN 800 MG TABS 724529 IBUPROFEN Inactive ENDOCET 10-325 MG TABS 1 q 6 hr prn ENDOC ET 10-325 MG TABS 6549560 OXYCODONE-ACETAMINOPHEN Inactive HYDROCODONE-ACETAMINOPHEN 7.5-325 MG TABS 1 by mouth e very 6 hours as needed for pain HYDROCODONE-ACETAMINOPHEN 7.5-325 MG TABS 720357 HYDROCODONE-ACETAMINOPHEN Inactive PERCOCET 7.5-325 MG TABS 1 PO q 8 hrs PRN pain PERCOCET 7.5-325 MG TABS 3371993 OXYCODONE-ACETAMINOPHEN Inactive LIDODERM 5 % PTCH One patch to painful area [place] N. On for 12 hrs, off for 12 hrs. LIDODERM 5 % PTCH 6278207 LIDOCAINE Inactiv e PERCOCET 7.5-325 MG TABS 1 PO tid PRN pain PERCOCET 7.5- 325 MG TABS 6623250 OXYCODONE-ACETAMINOPHEN Inactive MOBIC 15 MG TABS 1 tab daily MOBIC 15 MG TABS 15 2695 MELOXICAM Inactive CYCLOBENZAPRINE HCL 10 MG TABS 1/2 - 1 tab PO tid PRN back p ain, muscle spasm CYCLOBENZAPRINE HCL 10 MG TABS 563024 CYCLOBENZA JOSEPH HCL Inactive LORATADINE 10 MG TABS 1 tablet by mouth daily LORATADINE 10 MG TABS 468334 LORATADINE Inactive HYDROCODONE-ACETAMINOPHEN 10-325 MG TABS 1 by mouth ev chaka 8 hours as needed for pain HYDROCODONE-ACETAMINOPHEN 10-325 MG TABS 347253 HYDROCODONE-ACETAMINOPHEN Inactive LC-5 LIDOCAINE 5 % CREA apply 1 time daily to affected area 2013 LC-5 LIDOCAINE 5 % CREA LIDOCAINE (ANORECTAL) In active PERCOCET 5-325 MG TAB 1 every 6 hours as needed PERCOCET 5-325 MG TAB 9061327 OXYCODONE-ACETAMINOPHEN Inactive KEFLEX 500 MG CAP 1 po qid KEFLEX 500 MG CAP 30 9114 CEPHALEXIN Inactive PROAIR HFA 108 (90 BASE) MCG/ACT AERS 2 puff q 4-6 hrs PRN 01/24 PROAIR HFA 108 (90 BASE) MCG/ACT AERS ALBUTEROL SULFATE Inactive AMOXICILLIN 875 MG TABS 1 tab by mouth twice daily 201 07/18/07 AMOXICILLIN 875 MG TABS 548088 AMOXICILLIN Inactive KEFLEX 500 MG CAP 1 po tid x 10 days KEFLEX 500 MG CAP 524299 CEPHALEXIN Inactive AMOXICILLIN 875 MG TABS 1 tab by mouth twice daily 201 07/19/27 AMOXICILLIN 875 MG TABS 790781 AMOXICILLIN Inactive AMOXICILLIN 875 MG TABS 1 tab by mouth twice daily 201 08/09/13 AMOXICILLIN 875 MG TABS 263484 AMOXICILLIN Inactive CIPRO 500 MG TAB 1 tablet by mouth twice daily CIPRO 500 MG TAB 914098 CIPROFLOXACIN HCL Inactive BACTRIM DS 800-160 MG TAB 1 tab by mouth twice daily 2 BACTRIM DS 800-160 MG TAB TRIMETHOPRIM-SULFAMETHOXAZOLE Inac tive LEVAQUIN 500 MG TABS 1 PO q day x 7 days LEVAQUIN 500 MG TABS 050594 LEVOFLOXACIN Inactive CLINDAMYCIN HCL 300 MG CAPS 1 po QID x 7 days CLINDAMYCIN HCL 300 MG CAPS 017704 CLINDAMYCIN HCL Inactive AUGMENTIN 875-125 MG TAB 1 tab by mouth twice daily with food 22/05/07 AUGMENTIN 875-125 MG TAB 351518 AMOXICILLIN-POT CLAVULA [place] Inactive DIFLUCAN 150 MG TAB 1 qODay x 2 doses DIFLUCAN 150 MG TAB 184788 FLUCONAZOLE Inactive PREDNISONE 20 MG TAB 2 tabs daily for 3 days, 1 t ab daily for 3 days, 1/2 tab daily for 2 days PREDNISONE 20 MG TAB 292552 PREDNISON E Inactive Advance Directives Directive Description Start Date PERMISSION TO SHARE Immunizations Vaccine Administration Date Value Standard Alf cription Seasonal influenza vaccine, injectable, containing preservative, for > 3 years old (Afluria, FluLaval, Fluzone, Fluvirin, Fluarix, Agriflu(>= 18 yo)) Fluzone (>3 yrs.) [[id number]] Influenza, seasonal, inject able Seasonal influenza vaccine, injectable, preservative free, for > 3 years old (Afluria, FluLaval, Fluzone, Fluvirin, Fluarix, Agriflu(>= 18 yo)) Fluzone preservative free (>3 yrs.) [[id number]] Influenza, seasonal, injectable, preservative free Seasonal influenza vaccine, injectable, containing preservative, for > 3 years old (Afluria, FluLaval, Fluzone, Fluvirin, Fluarix, Agriflu(>= 18 yo)) Fluzone (>3 yrs.) [[id number]] Influenza, seasonal, inject able Seasonal influenza vaccine, injectable, containing preservative, for > 3 years old (Afluria, FluLaval, Fluzone, Fluvirin, Fluarix, Agriflu(>= 18 yo)) Fluzone (>3 yrs.) [[id number]] Influenza, seasonal, inject able dT (Diphtheria and Tetanus) booster given Histor ical Td(adult) unspecified formulation Vital Signs Date Name Value Unit Range Description blood pressure, diastolic - 8462-4 85 mm[Hg] [...] - 3141-9 240 [lb_av] Weigh t Measured blood pressure, diastolic - 8462-4 84 mm[Hg] BP ribeiro blood pressure, systolic - 8480-6 131 mm[Hg] BP sys height E&M - 8302-2 66 [in_us] Bdy h eight pulse rate E&M - 8867-4 92 /min H eart rate temperature E&M 97.3 [degF] Body temp erature weight E&M - 3141-9 235.2 [lb_av] Weigh t Measured blood pressure, diastolic - 8462-4 81 mm[Hg] BP ribeiro blood pressure, systolic - 8480-6 121 mm[Hg] BP sys height E&M - 8302-2 66 [in_us] Bdy h eight pulse rate E&M - 8867-4 91 /min H eart rate temperature E&M 98.2 [degF] Body temp erature weight E&M - 3141-9 237.2 [lb_av] Weigh t Measured Diagnostic Results Date [...] negative Encounters Code Encounter Date Provider Facility CPT-64719 Level 2 Est. Patient 07:49:32 CDT Kalpesh goins MD [facility] CPT-39492 Level 3 New Patient 15:47:11 [employer]HOUSE [employer]SEMBLY WORKER Bj huber MD [facility] CPT-38383 Level 4 Est. Patient 14:37:38 WAREHOUSE ASSEMBLY WORKER Abdirahman Rios MD [facility] CPT-02873 Level 2 Est. Patient 13:32:17 WAREHOUSE ASSEMBLY WORKER Kalpesh goins MD [facility] CPT-54151 Level 3 Est. Patient 17:32:57 WAREHOUSE ASSEMBLY WORKER Edilberto tiwari [facility] CPT-97919 Level 3 Est. Patient 17:22:33 WAREHOUSE ASSEMBLY WORKER Edilberto tiwari [facility] CPT-65671 Level 2 Est. Patient 16:57:09 WAREHOUSE ASSEMBLY WORKER Kalpesh goins MD [facility]-04978 Level 3 Est. Patient 14:03:08 WAREHOUSE ASSEMBLY WORKER Abdirahman Rios MD [facility] CPT-28167 Level 3 Est. Patient 18:12:34 CDT Shola MCGILL [facility] CPT-56533 Level 3 Est. Patient 19:34:46 CDT Shola MCGILL [facility] CPT-36384 Level 3 Est. Patient 14:19:37 CDT Abdirahman Rios MD [facility] CPT-66986 Level 3 Est. Patient 14:11:58 CDT Kalpesh goins MD [facility]-50571 Level 3 Est. Patient 16:50:00 CDT [facility] Level 3 Est. Patient 17:11:32 WAREHOUSE ASSEMBLY WORKER Brandie bates MD PhD [facility]-92812 Level 3 Est. Patient 16:31:47 WAREHOUSE ASSEMBLY WORKER Shola Wright [facility] CPT-39339 Level 3 Est. Patient 17:51:10 WAREHOUSE ASSEMBLY WORKER Abhinav Galvan MD [facility] CPT-42487 Level 4 Est. Patient 12:54:56 WAREHOUSE ASSEMBLY WORKER Kalpesh goins MD [facility] CPT-89574 Level 4 Est. Patient 12:53:56 WAREHOUSE ASSEMBLY WORKER Kalpesh goins MD [facility]-90672 Level 3 Est. Patient 17:56:58 CDT Shola MCGILL [facility] CPT-47075 Level 3 Est. Patient 14:26:20 CDT Janak butcher [facility] CPT-00295 Level 3 Est. Patient 09:38:41 CDT Shola Wright [facility] CPT-26920 Level 3 Est. Patient 14:45:26 CDT Edilberto tiwari DO [facility] CPT-41964 Level 3 Est. Patient 10:51:33 [facility] 3 Est. Patient 11:57:55 W[employer]HOUSE ASSEMBLY WORKER Shola MCGILL [facility] CPT-70911 Level 3 Est. Patient 09:53:33 WAREHOUSE ASSEMBLY WORKER Edilberto tiwari [facility] CPT-84897 Level 3 Est. Patient 14:42:54 WAREHOUSE ASSEMBLY WORKER Abhinav Galvan MD [facility] CPT-03598 Level 3 Est. Patient 15:10:02 CDT Janak butcher [facility] CPT-98413 Level 3 Est. Patient 15:20:20 CDT Theo dennis MD [facility] CPT-16014 Level 2 Est. Patient 14:08:57 CDT Kalpesh goins MD [facility] CPT-95966 Level 3 Est. Patient 13:56:19 CDT Abdirahman Rios MD [facility] CPT-19132 Level 3 Est. Patient 13:59:37 CDT Abdirahman Rios MD [facility] CPT-30161 Level 2 Est. Patient 14:44:59 CDT Kalpesh goins MD [facility] CPT-11089 Level 3 Est. Patient 06:06:23 CDT Edilberto tiwari [facility] CPT-01887 Level 3 Est. Patient 15:23:54 CDT Abdirahman Rios MD [facility] CPT-80770 Level 3 Est. Patient 15:43:49 CDT Abdirahman Rios MD [facility] CPT-84063 Level 3 Est. Patient 12:46:47 W[employer]HOUSE [employer]SEMBLY WORKER Abdirahman Rios MD [facility] CPT-50177 Level 3 Est. Patient 08:13:35 W[employer]HOUSE ASSEMBLY WORKER Abdirahman Rios MD [facility] CPT-62438 Level 2 Est. Patient 09:36:42 W[employer]HOUSE ASSEMBLY WORKER Abdirahman Rios MD [facility] CPT-53407 Level 3 Est. Patient 10:56:43 CDT Abdirahman Rios MD [facility] CPT-69750 Level 3 Est. Patient 18:24:52 CDT Abdirahman Rios MD [facility] CPT-56289 Level 3 Est. Patient 13:27:22 CDT Abdirahman Rios MD [facility] Procedures Code Procedure Name Date Entry Date Standard Desc ription CPT-83432 Postop F/U Visit 11:29:00 [employer] CPT-J0696 Rocephin 1000 mg (Ceftriaxone) 17:22:33 [employer] CPT-11655 Postop F/U Visit 18:41:07 [employer] CPT-20382 Postop F/U Visit 08:19:08 [employer] CPT-74716 Immunization Single Admin 16:41:53 CDT 2013 CPT-50248 Fluzone Quadrivalent Intramuscular Suspe nsion 0.5 ML 16:41:53 CDT CPT-OV Office Visit 16:39:18 CDT CPT-OV Office Visit 16:16:36 CDT CPT-OV Office Visit 15:34:48 CDT CPT-24857 Postop F/U Visit 14:50:12 CDT CPT-51160 Postop F/U Visit 14:41:10 CDT CPT-68898 Venipuncture Draw Fee 11:38:04 [employer] CPT-70543 Postop F/U Visit 19:02:59 [employer] CPT-63679 Postop F/U Visit 12:04:54 [employer] CPT-18263 Administration single or combination vac cine inc oral 15:56:43 CDT CPT-08728 Influenza split virus > age 3 15:56:43 CDT CPT-70893 Hand comp min 3V 14:25:19 CDT CPT-34268 Postop F/U Visit 21:40:51 CDT CPT-83540 Postop F/U Visit 10:58:43 CDT CPT-13149 Administration single or combination vac cine inc oral 12:33:54 [employer] CPT-12949 Influenza Preservative Free split virus >age 3 12:33:54 [employer] CPT-90122 Administration single or combination vac cine inc oral 09:30:51 CDT CPT-15619 Influenza split virus > age 3 09:30:51 CDT CPT-42441 Postop F/U Visit 15:14:53 CDT CPT-95823 Postop F/U Visit 13:50:14 CDT CPT-42358 Postop F/U Visit 13:34:52 CDT CPT-OV Office Visit 16:55:03 CDT CPT-75294 [place] of cervix w bx ECC 13:32:50 CDT 10/19 CPT-J1885 Toradol 60 mg (Ketorolac) 15:31:59 CDT 2011 CPT-J1885 Toradol 60 mg (Ketorolac) 15:23:54 CDT 2011 CPT-09113 Visit 11:34:37 [employer] CPT-73503 Visit 10:52:39 [employer] CPT-48754 Visit 10:12:02 [employer] CPT-14991 Visit 11:22:43 [employer] CPT-37486 Visit 11:24:12 [employer] CPT-61919 Visit 10:47:05 [employer] CPT-OV Office Visit 10:26:16 [employer] CPT-OV Office Visit 15:34:31 [employer] CPT-45850 Visit 10:42:08 [employer] CPT-63139 Visit 10:52:45 [employer] CPT-000 Give Appropriate Flu Vaccine 16:56:41 CDT 2 CPT-64514 Administration single or combination vac cine inc oral 10:33:21 CDT CPT-83016 Influenza split virus > age 3 10:33:21 CDT CPT-23510 Visit 13:23:09 CDT CPT-63529 Visit 18:24:52 CDT CPT-82449 Sono OB comp > 14 weeks 12:07:49 CDT 04/07
--- OUTSIDE RECORDS SUMMARY | 2020-01-18 15:52 | XMS REPORT | Clinical Summary ---
Author Author Admin, Jeri Rashid Organization [facility] Address Unknown Phone Unavailable Allergies, Adverse Reactions, Alerts Allergy Name Reaction Description Start Date Severity Status Pr ovider BACTRIM Critical Active Kalpesh Dong MD ZITHROMAX rash all over Critical Active Darya H aubrey LATEX rash Moderate Active aDrya Phelan man Conditions or Problems Problem Name [...] MD LARGE FOR GESTATIONAL AGE ICD-656.60 Inactive Adbirahman Rios MD MASTALGIA ICD-611.71 Inactive Abdirahman Carr [...] Good Julian MD Dysuria ICD-788.1 Inactive Good coliler MD Hypoglycemia ICD-251.2 Inactive Abdirahman Rios MD [...] prn for severe pain 20 20/02/27 OXYCODONE-ACETAMINOPHEN 34940106385 Active Jillina Frajalenl CLASSIFIER OPERATOR Active PERCOCET 5-325 MG ORAL TABS 1 every 6 hours as needed OXYCODONE-ACETAMINOPHEN 52598922137 Active Jillina Frazell CLASSIFIER OPERATOR Active HYDROCODONE-ACETAMINOPHEN 5-325 MG TABS 1 po q6hr PRN pain 06/30 HYDROCODONE-ACETAMINOPHEN 60145354865 No Longer Active Jillina Frazel l CLASSIFIER OPERATOR Active SPRINTEC 28 0.25-35 MG-MCG TABS 1 pill by mouth daily for bi rth control NORGESTIMATE-ETH ESTRADIOL 53091189675 Active Matthewllina Frajalenl CLASSIFIER OPERATOR Active GLUCOPHAGE 500 MG ORAL TABS one by mouth 3 times a day METFORMIN HCL 00123235350 No Longer Active Jillina Karmenl CLASSIFIER OPERATOR Ac tive PERCOCET 10-325 MG TABS 1 tab by mouth every 6 hours , use sparingly for severe pain OXYCODONE-ACETAMINOPHEN 06445694004 No Longer A ctive Abdirahman Rios MD Active IBUPROFEN 600 MG ORAL TABS 1 by mouth twice a day IBUPROFEN 64264604751 Active ERNIE Higuera Active TRAZODONE HCL 100 MG TAB 0.5 to 1 po qHS PRN Insomnia TRAZODONE HCL 65368100425 Active Abdirahman Rios MD Active CYMBALTA 30 MG CPEP 1 cap by mouth daily DULOXE CLEO HCL 07405233956 Active Abdirahman Rios MD Active EMLA 2.5-2.5 % EXT CREA apply to skin lesion q 6 hours, prn 2014 LIDOCAINE-PRILOCAINE 74597414002 No Longer Active Abdirahman Rios MD Active PERCOCET 10-325 MG ORAL TABS 1 every 4 hours as needed OXYCODONE-ACETAMINOPHEN 82583396908 No Longer Active Abdirahman Rios MD Active [id number] 50-325-40 MG ORAL CAPS 1-2 po TID MD N Headache [id number] 45501218704 Active Abdirahman Rios MD Active AUGMENTIN 875-125 MG TAB 1 tab by mouth twice daily with food 20 21/10/13 AMOXICILLIN-POT CLAVULANATE 74471532782 No Longer Active Ursula jasmina Frazell CLASSIFIER OPERATOR Active PROAIR HFA 108 (90 BASE) MCG/ACT AERS 2 puff q 4-6 hrs PRN 01/24 ALBUTEROL SULFATE 33115188482 No Longer Active Kalpesh Dong MD Active ALPRAZOLAM 0.5 MG TABS 1 po BID PRN Anxiety ALPRA ZOLAM 02831021477 Active Abdirahman Rios MD Active CYCLOBENZAPRINE HCL 10 MG TABS 1 tablet by mouth three times daily as needed for muscle spasm/pain CYCLOBENZAPRINE HCL 49512354916 Active Abdirahman Rios MD Active PREDNISONE 20 MG TAB 2 tabs daily for 3 days, 1 t ab daily for 3 days, 1/2 tab daily for 2 days PREDNISONE 85904344283 No Longer Active Abdirahman Rios MD Active KEFLEX 500 MG CAP 1 po qid CEPHALEXIN 331301021 20 No Longer Active Kalpesh Dong MD Active PERCOCET 5-325 MG TAB 1 every 6 hours as needed OXYCODONE-ACETAMINOPHEN 94776155124 No Longer Active Shola MCGILL Active LC-5 LIDOCAINE 5 % CREA apply 1 time daily to affected area 2013 LIDOCAINE (ANORECTAL) 13096777053 No Longer Active Jillina F razell CLASSIFIER OPERATOR Active HYDROCODONE-ACETAMINOPHEN 10-325 MG TABS 1 by mouth ev chaka 8 hours as needed for pain HYDROCODONE-ACETAMINOPHEN 27198984649 No Longer Active Jillina Frazell CLASSIFIER OPERATOR Active LORATADINE 10 MG TABS 1 tablet by mouth daily L ORATADINE 04850083696 No Longer Active Jillina Frazell CLASSIFIER OPERATOR Active DIFLUCAN 150 MG TAB 1 qODay x 2 doses FLUCONAZO LE 48824247109 No Longer Active Jillina Frazell CLASSIFIER OPERATOR Active CYCLOBENZAPRINE HCL 10 MG TABS 1/2 - 1 tab PO tid PRN back p ain, muscle spasm CYCLOBENZAPRINE HCL 27412835603 No Longer Active Karen siri Frazell CLASSIFIER OPERATOR Active AUGMENTIN 875-125 MG TAB 1 tab by mouth twice daily with food 20 22/05/07 AMOXICILLIN-POT CLAVULANATE 98236988075 No Longer Active Loida Rios MD Active MOBIC 15 MG TABS 1 tab daily MELOXICAM 980865864 14 No Longer Active Abdirahman Rios MD Active PERCOCET 7.5-325 MG TABS 1 PO tid PRN pain OXYCODONE-ACETAMINOPHEN 39122432561 No Longer Active Abdirahman Rios MD Active LIDODERM 5 % PTCH One patch to painful area MD N. On for 12 hrs, off for 12 hrs. LIDOCAINE 34943761617 No Longer Active Abdirahman Rios MD Active PERCOCET 7.5-325 MG TABS 1 PO q 8 hrs PRN pain OXYCODONE-ACETAMINOPHEN 10521607898 No Longer Active Shola MCGILL Active HYDROCODONE-ACETAMINOPHEN 7.5-325 MG TABS 1 by mouth e very 6 hours as needed for pain HYDROCODONE-ACETAMINOPHEN 49203691286 No Longer Active Good Julian MD Active CLINDAMYCIN HCL 300 MG CAPS 1 po QID x 7 days CLINDAMYCIN HCL 21231849740 No Longer Active Abdirahman Rios MD Activ e BACTRIM DS 800-160 MG TABS 1 po BID x 7 days 5 SULFAMETHOXAZOLE-TRIMETHOPRIM 34926467262 No Longer Active Abdirahman Rios MD Active ENDOCET 10-325 MG TABS 1 q 6 hr prn OXYCODONE-ACETAMINOPHEN 51772630806 No Longer Active Abdirahman Rios MD Active IBUPROFEN 800 MG TABS 1 tid prn IBUPROFEN 900746 24406 No Longer Active Abdirahman Rios MD Active BACTRIM DS 800-160 MG TABS by mouth twice a day 11/05 SULFAMETHOXAZOLE-TRIMETHOPRIM 47175182524 No Longer Active Good Julian MD Active HYDROCODONE-ACETAMINOPHEN 7.5-325 MG TABS 1 four times a day as needed for pain HYDROCODONE-ACETAMINOPHEN 86310692783 No Longer Activ e Good Julian MD Active KEFLEX 500 MG CAP 1 tab po tid CEPHALEXIN 321295 47772 No Longer Active Jillsiri Moser CLASSIFIER OPERATOR Active IBUPROFEN 800 MG TAB 1 pill three times daily as needed for pain IBUPROFEN 19559307485 No Longer Active Kalpesh Dong MD Active PROMETHAZINE-CODEINE 6.25-10 MG/5ML SYRP 1 tsp every 6 hrs prn c ough PROMETHAZINE-CODEINE 77297337287 No Longer Active Kalpesh Carr Active HYDROCODONE-ACETAMINOPHEN 5-325 MG TABS 1 tab by mouth every 6 hours as needed HYDROCODONE-ACETAMINOPHEN 17105505001 No Longer Activ e Shola MCGILL Active CEPHALEXIN 500 MG CAPS 1 PO bid x 7 days CEPHAL EXIN 06773893421 No Longer Active Shola MCGILL Active BACTRIM DS 800-160 MG TAB 1 tab by mouth twice daily 2 TRIMETHOPRIM-SULFAMETHOXAZOLE 39637920576 No Longer Active Kalpesh Dong MD Active HYDROCODONE-ACETAMINOPHEN 5-325 MG TABS 1 PO tid PRN pain 5 HYDROCODONE-ACETAMINOPHEN 63073142355 No Longer Active Abhinav Galvan MD Active IMPLANON 68 MG IMPL IMPLANTED IN LEFT ARM ETONO GESTREL 99932631066 No Longer Active Hira Moser APRN Active AMOXICILLIN 500 MG TABS 2 tabs PO bid x 10 d AM OXICILLIN 06317982390 No Longer Active Kalpesh Dong MD Active LEVAQUIN 500 MG TABS 1 PO q day x 7 days LEVOFL OXACIN 69011963259 No Longer Active Shola MCGILL Active AMITRIPTYLINE HCL 25 MG TAB 1 tab by mouth daily 60 minutes before bedtime AMITRIPTYLINE HCL 81554262521 No Longer Active Shola MCGILL Active LORTAB 5 5-500 MG TABS 1/2 to 1 tablet by mouth go ry 6 hours as needed for pain HYDROCODONE-ACETAMINOPHEN 40902526446 No Longer Active Shola MCGILL Active CEPHALEXIN 500 MG TABS Take one by mouth four times daily, morning, noon, early evening and bedtime. CEPHALEXIN 40417309522 No Long er Active Matthewllina Shanti RIVAS Active TYLENOL/CODEINE #3 300-30 MG TAB 1-2 po q6hr PRN Pain ACETAMINOPHEN-CODEINE 68181500231 No Longer Active Edilberto Marino DO Active PRISTIQ 50 MG [id number] 1 po qd DESVENLAFAXI NE SUCCINATE 72096519676 No Longer Active Edilberto Marino DO Active PENICILLIN V POTASSIUM 500 MG TAB 1 four times a day 2 PENICILLIN V POTASSIUM 04326596284 No Longer Active Edilberot Marino DO Active DOXYCYCLINE HYCLATE 100 MG CAPS Take one (1) tablet by mouth twice a day DOXYCYCLINE HYCLATE 32748662405 No Longer Active Ronnie Galvan MD Active HYDROCODONE-ACETAMINOPHEN 5-325 MG TABS 1 po q 6hr PRN Pain 2011 HYDROCODONE-ACETAMINOPHEN 07572286098 No Longer Active Patri joan Perez RN Active BACTRIM DS 800-160 MG TAB 1 tab by mouth twice daily 2 TRIMETHOPRIM-SULFAMETHOXAZOLE 83668112167 No Longer Active Kalpesh Dong MD Active LORTAB 5 5-500 MG TABS 1/2 to 1 tablet by mouth go ry 4 hours as needed for pain HYDROCODONE-ACETAMINOPHEN 06936739438 No Longer Active Kalpesh Dong MD Active GENERESS FE 0.8-25 MG-MCG CHEW Take one by mouth daily NORETHIN-ETH ESTRADIOL-FE 82684422978 No Longer Active Kalpesh Dong MD Active HYDROCODONE-ACETAMINOPHEN 7.5-500 MG TABS 1-2 every 4 hours as needed HYDROCODONE-ACETAMINOPHEN 73029989033 No Longer Activ e Kalpesh Dong MD Active FERROUS SULFATE 325 (65 FE) MG TABS 1 tablet by mouth twice yung y FERROUS SULFATE 24129268936 No Longer Active Kalpesh Dong MD Active IBUPROFEN 600 MG TAB 1 po q6-8hr PRN IBUPROFEN 49795580814 No Longer Active Kalpesh Dong MD Active SPIRONOLACTONE 25 MG TAB 1 tablet by mouth daily 01/22 SPIRONOLACTONE 60725261136 No Longer Active Kalpesh Dong MD Acti ve HYDROCODONE-ACETAMINOPHEN 7.5-325 MG TABS 1 po QID PRN Pain 2011 HYDROCODONE-ACETAMINOPHEN 10265940086 No Longer Active Kalpesh Dong MD Active CLINDAMYCIN HCL 300 MG CAPS 1 po q6hr x 7 days CLINDAMYCIN HCL 54302576015 No Longer Active Edilberto Marino DO Active PREDNISONE 20 MG TAB 2 tabs daily for 4 days, 1 t ab daily for 4 days, 1/2 tab daily for 4 days PREDNISONE 75237800860 No Longer Active Edilberto Marino DO Active PERCOCET 5-325 MG TABS 1 tablet by mouth every 6 hours as ne eded for pain OXYCODONE-ACETAMINOPHEN 80377783310 No Longer Active Abdirahman Rios MD Active VITAMINS TABS Take one by mouth daily MV & MIN W/FE-FA TABS 39120837089 No Longer Active Abdirahman Rios MD Active LUIS 3-0.02 MG TABS 1 tablet by mouth daily as directed DROSPIRENONE-ETHINYL ESTRADIOL 63666427474 No Longer Active Abdirahman Rios MD Active LORATADINE 10 MG TABS 1 tablet by mouth daily L ORATADINE 86550405563 No Longer Active Kalpesh Dong MD Active HYDROCODONE-ACETAMINOPHEN 5-325 MG TABS 1 po q 6hr PRN Pain 2010 HYDROCODONE-ACETAMINOPHEN 40687725961 No Longer Active Edilberto Marino DO Active BACTRIM DS 800-160 MG TAB 1 tab by mouth twice daily 2 TRIMETHOPRIM-SULFAMETHOXAZOLE 43955806643 No Longer Active Abdirahman Rios MD Active 28-0.8 MG TABS Take one by mouth daily 09/20 VIT-FE FUMARATE-FA 94023975014 No Longer Active Abdirahman Rios MD Active CIPRO 500 MG TAB 1 tablet by mouth twice daily CIPROFLOXACIN HCL 99131986040 No Longer Active Abdirahman Rios MD Active BENADRYL 25 MG CAP 1 po q8hr PRN Congestion DIPHENHYDRAMINE HCL 89352386296 No Longer Active Abdirahman Rios MD Active ZOLOFT 50 MG TAB 1 po qd SERTRALINE HCL 489459 73779 No Longer Active Abdirahman Rios MD Active AMOXICILLIN 875 MG TABS 1 tab by mouth twice daily 201 08/09/13 AMOXICILLIN 86757520560 No Longer Active Abdirahman Rios MD Activ e AMOXICILLIN 875 MG TABS 1 tab by mouth twice daily 201 07/19/27 AMOXICILLIN 74941178058 No Longer Active Abdirahman Rios MD Activ e BACTRIM DS 800-160 MG TAB 2 tab by mouth twice daily 2 TRIMETHOPRIM-SULFAMETHOXAZOLE 64195607467 No Longer Active Abdirahman Rios MD Active KEFLEX 500 MG CAP 1 po tid x 10 days CEPHALEXIN 87596070397 No Longer Active Abdirahman Rios MD Active AMOXICILLIN 875 MG TABS 1 tab by mouth twice daily 201 07/18/07 AMOXICILLIN 64232350329 No Longer Active Abdirahman Rios MD Activ e BACTRIM DS 800-160 MG TAB 2 tab by mouth twice daily 2 BACTRIM DS 800-160 MG TAB TRIMETHOPRIM-SULFAMETHOXAZOLE Inactive ZOLOFT 50 MG TAB 1 po qd ZOLOFT 50 MG TAB 3129 41 SERTRALINE HCL Inactive BENADRYL 25 MG CAP 1 po q8hr PRN Congestion BENADRYL 25 MG CAP 8481506 DIPHENHYDRAMINE HCL Inactive 28-0.8 MG TABS Take one by mouth daily 09/20 28-0.8 MG TABS VIT-FE FUMARATE-FA Inactive HYDROCODONE-ACETAMINOPHEN 5-325 MG TABS 1 po q 6hr PRN Pain 2010 HYDROCODONE-ACETAMINOPHEN 5-325 MG TABS 959646 HYDROCODONE-ACETAMINOPHEN Inactive LORATADINE 10 MG TABS 1 tablet by mouth daily LORATADINE 10 MG TABS 483175 LORATADINE Inactive LUIS 3-0.02 MG TABS 1 tablet by mouth daily as directed LUIS 3-0.02 MG TABS DROSPIRENONE-ETHINYL ESTRADIOL Inactive VITAMINS TABS Take one by mouth daily VITAMINS TABS MV & MIN W/FE-FA TABS Inactive PERCOCET 5-325 MG TABS 1 tablet by mouth every 6 hours as ne eded for pain PERCOCET 5-325 MG TABS 5415920 OXYCODONE-ACETAMIN OPHEN Inactive PREDNISONE 20 MG TAB 2 tabs daily for 4 days, 1 t ab daily for 4 days, 1/2 tab daily for 4 days PREDNISONE 20 MG TAB 333017 PREDNISON E Inactive CLINDAMYCIN HCL 300 MG CAPS 1 po q6hr x 7 days CLINDAMYCIN HCL 300 MG CAPS 271674 CLINDAMYCIN HCL Inactive HYDROCODONE-ACETAMINOPHEN 7.5-325 MG TABS 1 po QID PRN Pain 2011 HYDROCODONE-ACETAMINOPHEN 7.5-325 MG TABS 191511 HYDROCODONE-ACETAMINOPHEN Inactive SPIRONOLACTONE 25 MG TAB 1 tablet by mouth daily 01/22 SPIRONOLACTONE 25 MG TAB 049011 SPIRONOLACTONE Inactive IBUPROFEN 600 MG TAB 1 po q6-8hr PRN IBUPROFEN 600 MG TAB 011096 IBUPROFEN Inactive FERROUS SULFATE 325 (65 FE) MG TABS 1 tablet by mouth twice yung y FERROUS SULFATE 325 (65 FE) MG TABS 489319 FERROUS SULF ATE Inactive HYDROCODONE-ACETAMINOPHEN 7.5-500 MG TABS 1-2 every 4 hours as needed HYDROCODONE-ACETAMINOPHEN 7.5-500 MG TABS HYDROCODONE-ACETAMINOPHEN Inactive GENERESS FE 0.8-25 MG-MCG CHEW Take one by mouth daily GENERESS FE 0.8-25 MG-MCG CHEW 2807850 NORETHIN-ETH ESTRADIOL-FE Inactive LORTAB 5 5-500 MG [...] PRN Pain 2011 HYDROCODONE-ACETAMINOPHEN 5-325 MG TABS 737396 HYDROCODONE-ACETAMINOPHEN Inactive DOXYCYCLINE HYCLATE 100 MG CAPS Take one (1) tablet by mouth twice a day DOXYCYCLINE HYCLATE 100 MG CAPS 2159768 DOXYCYCLINE HYCLATE Inactive PENICILLIN V POTASSIUM 500 MG TAB 1 four times a day 2 PENICILLIN V POTASSIUM 500 MG TAB 194829 PENICILLIN V POTASSIUM Siri ctive PRISTIQ 50 MG [id number] 1 po qd PRISTIQ 50 MG [id number] DESVENLAFAXINE SUCCINATE Inactive TYLENOL/CODEINE #3 300-30 MG TAB 1-2 po q6hr PRN Pain TYLENOL/CODEINE #3 300-30 MG TAB 114631 ACETAMINOPHEN-CODEINE Inact krishna CEPHALEXIN 500 MG TABS Take one by mouth four times daily, morning, noon, early evening and bedtime. CEPHALEXIN 500 MG TABS 887473 CEPHALEXIN Inactive LORTAB 5 5-500 MG TABS 1/2 to 1 tablet by mouth go ry 6 hours as needed for pain LORTAB 5 5-500 MG TABS HYDROCODONE-A CETAMINOPHEN Inactive AMITRIPTYLINE HCL 25 MG TAB 1 tab by mouth daily 60 minutes before bedtime AMITRIPTYLINE HCL 25 MG TAB 904814 AMITRIPTYLINE HCL Inactive AMOXICILLIN 500 MG TABS 2 tabs PO bid x 10 d 7 AMOXICILLIN 500 MG TABS 008518 AMOXICILLIN Inactive IMPLANON 68 MG IMPL IMPLANTED IN LEFT ARM IMPLANON 68 MG IMPL ETONOGESTREL Inactive HYDROCODONE-ACETAMINOPHEN 5-325 MG TABS 1 PO tid PRN pain 5 HYDROCODONE-ACETAMINOPHEN 5-325 MG TABS 751934 HYDROCODONE-ACETAMIN OPHEN Inactive BACTRIM DS 800-160 MG TAB 1 tab by mouth twice daily 2 BACTRIM DS 800-160 MG TAB TRIMETHOPRIM-SULFAMETHOXAZOLE Inac tive CEPHALEXIN 500 MG CAPS 1 PO bid x 7 days CEPHALEXIN 500 MG CAPS 247535 CEPHALEXIN Inactive HYDROCODONE-ACETAMINOPHEN 5-325 MG TABS 1 tab by mouth every 6 hours as needed HYDROCODONE-ACETAMINOPHEN 5-325 MG TABS 569718 HYDROCODONE-ACETAMINOPHEN Inactive PROMETHAZINE-CODEINE 6.25-10 MG/5ML SYRP 1 tsp every 6 hrs prn c ough PROMETHAZINE-CODEINE 6.25-10 MG/5ML SYRP 949862 PROMETH AZINE-CODEINE Inactive IBUPROFEN 800 MG TAB 1 pill three times daily as needed for pain IBUPROFEN 800 MG TAB IBUPROFEN Inactive KEFLEX 500 MG CAP 1 tab po tid KEFLEX 500 MG CAP 030160 CEPHALEXIN Inactive HYDROCODONE-ACETAMINOPHEN 7.5-325 MG TABS 1 four times a day as needed for pain HYDROCODONE-ACETAMINOPHEN 7.5-325 MG TABS 072331 HYDROCODONE-ACETAMINOPHEN Inactive BACTRIM DS 800-160 MG TABS by mouth twice a day 11/05 BACTRIM DS 800-160 MG TABS SULFAMETHOXAZOLE-TRIMETHOPRIM Inactive IBUPROFEN 800 MG TABS 1 tid prn IBUPROFEN 800 MG TABS 579434 IBUPROFEN Inactive ENDOCET 10-325 MG TABS 1 q 6 hr prn ENDOC ET 10-325 MG TABS 9392325 OXYCODONE-ACETAMINOPHEN Inactive HYDROCODONE-ACETAMINOPHEN 7.5-325 MG TABS 1 by mouth e very 6 hours as needed for pain HYDROCODONE-ACETAMINOPHEN 7.5-325 MG TABS 018041 HYDROCODONE-ACETAMINOPHEN Inactive PERCOCET 7.5-325 MG TABS 1 PO q 8 hrs PRN pain PERCOCET 7.5-325 MG TABS 3694132 OXYCODONE-ACETAMINOPHEN Inactive LIDODERM 5 % PTCH One patch to painful area MD N. On for 12 hrs, off for 12 hrs. LIDODERM 5 % PTCH 5747220 LIDOCAINE Inactiv e PERCOCET 7.5-325 MG TABS 1 PO tid PRN pain PERCOCET 7.5- 325 MG TABS 4197735 OXYCODONE-ACETAMINOPHEN Inactive MOBIC 15 MG TABS 1 tab daily MOBIC 15 MG TABS 15 2695 MELOXICAM Inactive CYCLOBENZAPRINE HCL 10 MG TABS 1/2 - 1 tab PO tid PRN back p ain, muscle spasm CYCLOBENZAPRINE HCL 10 MG TABS 850462 CYCLOBENZA JOSEPH HCL Inactive LORATADINE 10 MG TABS 1 tablet by mouth daily LORATADINE 10 MG TABS 437460 LORATADINE Inactive HYDROCODONE-ACETAMINOPHEN 10-325 MG TABS 1 by mouth ev chaka 8 hours as needed for pain HYDROCODONE-ACETAMINOPHEN 10-325 MG TABS 050470 HYDROCODONE-ACETAMINOPHEN Inactive LC-5 LIDOCAINE 5 % CREA apply 1 time daily to affected area 2013 LC-5 LIDOCAINE 5 % CREA LIDOCAINE (ANORECTAL) In active PERCOCET 5-325 MG TAB 1 every 6 hours as needed PERCOCET 5-325 MG TAB 1506232 OXYCODONE-ACETAMINOPHEN Inactive KEFLEX 500 MG CAP 1 po qid KEFLEX 500 MG CAP 30 14 CEPHALEXIN Inactive PROAIR HFA 108 (90 BASE) MCG/ACT AERS 2 puff q 4-6 hrs PRN 01/24 PROAIR HFA 108 (90 BASE) MCG/ACT AERS ALBUTEROL SULFATE Inactive PERCOCET 10-325 MG ORAL TABS 1 every 4 hours as needed PERCOCET 10-325 MG ORAL TABS 8017956 OXYCODONE-ACETAMINOPHEN Inactiv e EMLA 2.5-2.5 % EXT CREA apply to skin lesion q 6 hours, prn 2014 EMLA 2.5-2.5 % EXT CREA 979477 LIDOCAINE-PRILOCAINE Siri ctive PERCOCET 10-325 MG TABS 1 tab by mouth every 6 hours , use sparingly for severe pain PERCOCET 10-325 MG TABS 4814137 OXYCODONE-ACETAMINOPHEN Inactive GLUCOPHAGE 500 MG ORAL TABS one by mouth 3 times a day GLUCOPHAGE 500 MG ORAL TABS 908345 METFORMIN HCL Inactive HYDROCODONE-ACETAMINOPHEN 5-325 MG TABS 1 po q6hr PRN pain 06/30 HYDROCODONE-ACETAMINOPHEN 5-325 MG TABS 233472 HYDROCOD ONE-ACETAMINOPHEN Inactive AMOXICILLIN 875 MG TABS 1 tab by mouth twice daily 201 07/18/07 AMOXICILLIN 875 MG TABS 124763 AMOXICILLIN Inactive KEFLEX 500 MG CAP 1 po tid x 10 days KEFLEX 500 MG CAP 339833 CEPHALEXIN Inactive AMOXICILLIN 875 MG TABS 1 tab by mouth twice daily 201 07/19/27 AMOXICILLIN 875 MG TABS 607647 AMOXICILLIN Inactive AMOXICILLIN 875 MG TABS 1 tab by mouth twice daily 201 08/09/13 AMOXICILLIN 875 MG TABS 962412 AMOXICILLIN Inactive CIPRO 500 MG TAB 1 tablet by mouth twice daily CIPRO 500 MG TAB 675263 CIPROFLOXACIN HCL Inactive BACTRIM DS 800-160 MG TAB 1 tab by mouth twice daily 2 BACTRIM DS 800-160 MG TAB TRIMETHOPRIM-SULFAMETHOXAZOLE Inac tive LEVAQUIN 500 MG TABS 1 PO q day x 7 days LEVAQUIN 500 MG TABS 861890 LEVOFLOXACIN Inactive CLINDAMYCIN HCL 300 MG CAPS 1 po QID x 7 days CLINDAMYCIN HCL 300 MG CAPS 373730 CLINDAMYCIN HCL Inactive AUGMENTIN 875-125 MG TAB 1 tab by mouth twice daily with food 20 22/05/07 AUGMENTIN 875-125 MG TAB 411052 AMOXICILLIN-POT CLAVULA [place] Inactive DIFLUCAN 150 MG TAB 1 qODay x 2 doses DIFLUCAN 150 MG TAB 211095 FLUCONAZOLE Inactive PREDNISONE 20 MG TAB 2 tabs daily for 3 days, 1 t ab daily for 3 days, 1/2 tab daily for 2 days PREDNISONE 20 MG TAB 115440 PREDNISON E Inactive AUGMENTIN 875-125 MG TAB 1 tab by mouth twice daily with food 21/10/13 AUGMENTIN 875-125 MG TAB 624112 AMOXICILLIN-POT CLAVULA [place] Inactive Advance Directives Directive Description Start Date PERMISSION TO SHARE Immunizations Vaccine Administration Date Value Standard Alf cription Seasonal influenza vaccine, injectable, containing preservative, for > 3 years old (Afluria, FluLaval, Fluzone, Fluvirin, Fluarix, Agriflu(>= 18 yo)) Fluzone (>3 yrs.) [[id number]] Influenza, seasonal, inject able Seasonal influenza vaccine, injectable, preservative free, for > 3 years old (Afluria, FluLaval, Fluzone, Fluvirin, Fluarix, Agriflu(>= 18 yo)) Fluzone preservative free (>3 yrs.) [[id number]] Influenza, seasonal, injectable, preservative free Seasonal influenza vaccine, injectable, containing preservative, for > 3 years old (Afluria, FluLaval, Fluzone, Fluvirin, Fluarix, Agriflu(>= 18 yo)) Fluzone (>3 yrs.) [[id number]] Influenza, seasonal, inject able Seasonal influenza vaccine, injectable, containing preservative, for > 3 years old (Afluria, FluLaval, Fluzone, Fluvirin, Fluarix, Agriflu(>= 18 yo)) Fluzone (>3 yrs.) [[id number]] Influenza, seasonal, inject able dT (Diphtheria and [...] Panel - Chemistry sodium, serum 142 mmol/L 039-322 7457/05/12 potassium, serum 4.8 mmol/L 3.5-5.2 chloride, serum [...] Panel - Chemistry cholesterol, serum 165 mg/dL 784-373 2978/05/12 triglyceride, serum, fasting 524 mg/dL 30-200 HDL [...] negative Encounters Code Encounter Date Provider Facility CPT-30138 Level 3 Est. Patient 14:29:53 CDT Abhinav Galvan MD [facility] CPT-46299 Level 2 Est. Patient 16:33:01 CDT Kalpesh goins MD [facility] CPT-88917 Level 4 Est. Patient 16:44:56 CDT Abdirahman Rios MD [facility] CPT-42626 Level 2 Est. Patient 07:49:32 CDT Kalpesh goins MD [facility] CPT-91726 Level 3 New Patient 15:47:11 BREWING TECHNICIAN Bj huber MD [facility]-68053 Level 4 Est. Patient 14:37:38 BREWING TECHNICIAN Abdirahman Rios MD [facility]-13591 Level 2 Est. Patient 13:32:17 BREWING TECHNICIAN Kalepsh goins MD [facility]-96387 Level 3 Est. Patient 17:32:57 BREWING TECHNICIAN Edilberto tiwari [facility] CPT-53256 Level 3 Est. Patient 17:22:33 BREWING TECHNICIAN Edilberto tiwari [facility] CPT-80698 Level 2 Est. Patient 16:57:09 BREWING TECHNICIAN Kalpesh goins MD [facility]-89690 Level 3 Est. Patient 14:03:08 BREWING TECHNICIAN Abdirahman Rios MD [facility] CPT-21161 Level 3 Est. Patient 18:12:34 CDT Shola Wright [facility] CPT-82337 Level 3 Est. Patient 19:34:46 CDT Shola Wright [facility] CPT-42770 Level 3 Est. Patient 14:19:37 CDT Abdirahman Rios MD [facility] CPT-04137 Level 3 Est. Patient 14:11:58 CDT Kalpesh goins MD [facility]-71748 Level 3 Est. Patient 16:50:00 CDT Michelle MERCADO [facility]-32979 Level 3 Est. Patient 17:11:32 BREWING TECHNICIAN Brandie bates MD, PhD [facility] CPT-81716 Level 3 Est. Patient 16:31:47 BREWING TECHNICIAN Shola Wright [facility] CPT-75114 Level 3 Est. Patient 17:51:10 BREWING TECHNICIAN Abhinav Galvan MD [facility] CPT-00968 Level 4 Est. Patient 12:54:56 BREWING TECHNICIAN Kalpesh goins MD [facility] CPT-35081 Level 4 Est. Patient 12:53:56 BREWING TECHNICIAN Kalpesh goins MD [facility] CPT-01785 Level 3 Est. Patient 17:56:58 CDT Shola Thao Adriana [facility] CPT-49664 Level 3 Est. Patient 14:26:20 CDT Janak butcher [facility] CPT-39656 Level 3 Est. Patient 09:38:41 CDT Shola Thao [facility] CPT-25042 Level 3 Est. Patient 14:45:26 CDT Edilberto tiwari [facility] CPT-77014 Level 3 Est. Patient 10:51:33 CDT Hira muniz [facility] CPT-46303 Level 3 Est. Patient 11:57:55 BREWING TECHNICIAN Shola Houghsabi [facility] CPT-84526 Level 3 Est. Patient 09:53:33 BREWING TECHNICIAN Edilberto tiwari [facility] CPT-87034 Level 3 Est. Patient 14:42:54 BREWING TECHNICIAN Abhinav Galvan MD [facility] CPT-19949 Level 3 Est. Patient 15:10:02 CDT Janak butcher [facility] CPT-79694 Level 3 Est. Patient 15:20:20 CDT Theo dennis MD [facility] CPT-93410 Level 2 Est. Patient 14:08:57 CDT Kalpesh goins MD [facility] CPT-12520 Level 3 Est. Patient 13:56:19 CDT Abdirahman Rios MD [facility] CPT-90484 Level 3 Est. Patient 13:59:37 CDT Abdirahman Rios MD [facility] CPT-97704 Level 2 Est. Patient 14:44:59 CDT Kalpesh goins MD [facility] CPT-99848 Level 3 Est. Patient 06:06:23 CDT Edilberto tiwari DO [facility] CPT-72904 Level 3 Est. Patient 15:23:54 CDT Abdirahman Rios MD [facility] CPT-50518 Level 3 Est. Patient 15:43:49 CDT Abdirahman Rios MD [facility] CPT-29905 Level 3 Est. Patient 12:46:47 BREWING TECHNICIAN Abdirahman Rios MD [facility] CPT-35947 Level 3 Est. Patient 08:13:35 BREWING TECHNICIAN Abdirahman Rios MD [facility] CPT-46737 Level 2 Est. Patient 09:36:42 BREWING TECHNICIAN Abdirahman Rios MD [facility] CPT-12647 Level 3 Est. Patient 10:56:43 CDT Abdirahman Rios MD [facility] CPT-34651 Level 3 Est. Patient 18:24:52 CDT Abdirahman Rios MD [facility] CPT-87058 Level 3 Est. Patient 13:27:22 CDT Abdirahman Rios MD [facility] Procedures Code Procedure Name Date Entry Date Standard Desc ription CPT-58753 Venipuncture Draw Fee 14:27:29 CDT CPT-26357 Postop F/U Visit 15:27:43 CDT CPT-54864 Postop F/U Visit 14:40:59 CDT CPT-19220 Postop F/U Visit 15:02:46 CDT CPT-57906 Postop F/U Visit 11:29:00 BREWING TECHNICIAN CPT-J0696 Rocephin 1000 mg (Ceftriaxone) 17:22:33 BREWING TECHNICIAN CPT-16924 Postop F/U Visit 18:41:07 BREWING TECHNICIAN CPT-29863 Postop F/U Visit 08:19:08 BREWING TECHNICIAN CPT-97767 Immunization Single Admin 16:41:53 CDT 2013 CPT-40897 Fluzone Quadrivalent Intramuscular Suspe nsion 0.5 ML 16:41:53 CDT CPT-OV Office Visit 16:39:18 CDT CPT-OV Office Visit 16:16:36 CDT CPT-OV Office Visit 15:34:48 CDT CPT-72316 Postop F/U Visit 14:50:12 CDT CPT-60566 Postop F/U Visit 14:41:10 CDT CPT-56452 Venipuncture Draw Fee 11:38:04 BREWING TECHNICIAN CPT-08350 Postop F/U Visit 19:02:59 BREWING TECHNICIAN CPT-85325 Postop F/U Visit 12:04:54 BREWING TECHNICIAN CPT-61280 Administration single or combination vac cine inc oral 15:56:43 CDT CPT-89011 Influenza split virus > age 3 15:56:43 CDT CPT-73753 Hand comp min 3V 14:25:19 CDT CPT-88917 Postop F/U Visit 21:40:51 CDT CPT-97382 Postop F/U Visit 10:58:43 CDT CPT-29803 Administration single or combination vac cine inc oral 12:33:54 BREWING TECHNICIAN CPT-79738 Influenza Preservative Free split virus >age 3 12:33:54 BREWING TECHNICIAN CPT-18258 Administration single or combination vac cine inc oral 09:30:51 CDT CPT-74795 Influenza split virus > age 3 09:30:51 CDT CPT-09671 Postop F/U Visit 15:14:53 CDT CPT-84863 Postop F/U Visit 13:50:14 CDT CPT-58371 Postop F/U Visit 13:34:52 CDT CPT-OV Office Visit 16:55:03 CDT CPT-46435 [place] of cervix w bx ECC 13:32:50 CDT 10/19 CPT-J1885 Toradol 60 mg (Ketorolac) 15:31:59 CDT 2011 CPT-J1885 Toradol 60 mg (Ketorolac) 15:23:54 CDT 2011 CPT-56981 Visit 11:34:37 BREWING TECHNICIAN CPT-67219 Visit 10:52:39 BREWING TECHNICIAN CPT-70033 Visit 10:12:02 BREWING TECHNICIAN CPT-59339 Visit 11:22:43 BREWING TECHNICIAN CPT-76771 Visit 11:24:12 BREWING TECHNICIAN CPT-18680 Visit 10:47:05 BREWING TECHNICIAN CPT-OV Office Visit 10:26:16 BREWING TECHNICIAN CPT-OV Office Visit 15:34:31 BREWING TECHNICIAN CPT-70737 Visit 10:42:08 BREWING TECHNICIAN CPT-50847 Visit 10:52:45 BREWING TECHNICIAN CPT-000 Give Appropriate Flu Vaccine 16:56:41 CDT 2 CPT-17027 Administration single or combination vac cine inc oral 10:33:21 CDT CPT-73337 Influenza split virus > age 3 10:33:21 CDT CPT-69497 Visit 13:23:09 CDT CPT-30468 Visit 18:24:52 CDT CPT-38660 Sono OB comp > 14 weeks 12:07:49 CDT 04/07
--- OUTSIDE RECORDS SUMMARY | 2020-01-18 15:53 | XMS REPORT | Clinical Summary ---
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 SCALE MANAGER Abscess of anal and rectal regions Hypertriglyceridemia [...] 600 MG TABS 1 po BID GEMFIBROZIL [id number] 005 Active Abdirahman Rios MD Active HYDROCODONE-ACETAMINOPHEN 5-325 MG TABS 1 po q6hr PRN Pain HYDROCODONE-ACETAMINOPHEN 97257433288 Active Abdirahman Rios MD Active PERCOCET 5-325 MG ORAL TABS 1 every 6 hours as needed OXYCODONE-ACETAMINOPHEN 08766839513 No Longer Active Abdirahman Rios MD Active PERCOCET 5-325 MG TAB 1 tab po q 6 -8 hours, prn for severe pain OXYCODONE-ACETAMINOPHEN 81122123537 No Longer Active Abdirahman Rios MD Active HYDROCODONE-ACETAMINOPHEN 5-325 MG TABS 1 po q6hr PRN pain 06/30 HYDROCODONE-ACETAMINOPHEN 37137204468 No Longer Active Hira roman SCALE MANAGER Active SPRINTEC 28 0.25-35 MG-MCG TABS 1 pill by mouth daily for bi rth control NORGESTIMATE-ETH ESTRADIOL 93787187742 Active Hira Moser SCALE MANAGER Active GLUCOPHAGE 500 MG ORAL TABS one by mouth 3 times a day METFORMIN HCL 87599917090 No Longer Active Hira Moser SCALE MANAGER Ac tive PERCOCET 10-325 MG TABS 1 tab by mouth every 6 hours , use sparingly for severe pain OXYCODONE-ACETAMINOPHEN 88846630808 No Longer A ctive Abdirahman Rios MD Active IBUPROFEN 600 MG ORAL TABS 1 by mouth twice a day IBUPROFEN 38785190833 Active ERNIE Higuera Active TRAZODONE HCL 100 MG TAB 0.5 to 1 po qHS PRN Insomnia TRAZODONE HCL 03916448710 Active Abdirahman Rios MD Active CYMBALTA 30 MG CPEP 1 cap by mouth daily DULOXE CLEO HCL 85954530020 Active Abdirahman Rios MD Active EMLA 2.5-2.5 % EXT CREA apply to skin lesion q 6 hours, prn 2014 LIDOCAINE-PRILOCAINE 83899292665 No Longer Active Abdirahman Rios MD Active PERCOCET 10-325 MG ORAL TABS 1 every 4 hours as needed OXYCODONE-ACETAMINOPHEN 82072619657 No Longer Active Abdirahman Rios MD Active [id number] 50-325-40 MG ORAL CAPS 1-2 po TID IA N Headache [id number] 48785278217 Active Abdirahman Rios MD Active AUGMENTIN 875-125 MG TAB 1 tab by mouth twice daily with food 20 21/10/13 AMOXICILLIN-POT CLAVULANATE 39256224893 No Longer Active Ursula Moser SCALE MANAGER Active PROAIR HFA 108 (90 BASE) MCG/ACT AERS 2 puff q 4-6 hrs PRN 01/24 ALBUTEROL SULFATE 17320235912 No Longer Active Kalpesh Dong MD Active ALPRAZOLAM 0.5 MG TABS 1 po BID PRN Anxiety ALPRA ZOLAM 40234194731 Active Abdirahman Rios MD Active CYCLOBENZAPRINE HCL 10 MG TABS 1 tablet by mouth three times daily as needed for muscle spasm/pain CYCLOBENZAPRINE HCL 17108464183 Active Abdirahman Rios MD Active PREDNISONE 20 MG TAB 2 tabs daily for 3 days, 1 t ab daily for 3 days, 1/2 tab daily for 2 days PREDNISONE 84769677903 No Longer Active Abdirahman Rios MD Active KEFLEX 500 MG CAP 1 po qid CEPHALEXIN 284196056 20 No Longer Active Kalpesh Dong MD Active PERCOCET 5-325 MG TAB 1 every 6 hours as needed OXYCODONE-ACETAMINOPHEN 96112571662 No Longer Active Shola MCGILL Active LC-5 LIDOCAINE 5 % CREA apply 1 time daily to affected area 2013 LIDOCAINE (ANORECTAL) 99299505019 No Longer Active Jillina F radhaell SCALE MANAGER Active HYDROCODONE-ACETAMINOPHEN 10-325 MG TABS 1 by mouth ev chaka 8 hours as needed for pain HYDROCODONE-ACETAMINOPHEN 01217353061 No Longer Active Jillina Frazell SCALE MANAGER Active LORATADINE 10 MG TABS 1 tablet by mouth daily L ORATADINE 02050284831 No Longer Active Jillina Frazell SCALE MANAGER Active DIFLUCAN 150 MG TAB 1 qODay x 2 doses FLUCONAZO LE 12965311705 No Longer Active Jillina Frazell SCALE MANAGER Active CYCLOBENZAPRINE HCL 10 MG TABS 1/2 - 1 tab PO tid PRN back p ain, muscle spasm CYCLOBENZAPRINE HCL 57310308661 No Longer Active Karen siri Frazell SCALE MANAGER Active AUGMENTIN 875-125 MG TAB 1 tab by mouth twice daily with food 20 22/05/07 AMOXICILLIN-POT CLAVULANATE 52678106867 No Longer Active Loida Rios MD Active MOBIC 15 MG TABS 1 tab daily MELOXICAM 519146370 14 No Longer Active Abdirahman Rios MD Active PERCOCET 7.5-325 MG TABS 1 PO tid PRN pain OXYCODONE-ACETAMINOPHEN 43441118713 No Longer Active Abdirahman Rios MD Active LIDODERM 5 % PTCH One patch to painful area IA N. On for 12 hrs, off for 12 hrs. LIDOCAINE 94799157049 No Longer Active Abdirahman Rios MD Active PERCOCET 7.5-325 MG TABS 1 PO q 8 hrs PRN pain OXYCODONE-ACETAMINOPHEN 51499492650 No Longer Active Shola MCGILL Active HYDROCODONE-ACETAMINOPHEN 7.5-325 MG TABS 1 by mouth e very 6 hours as needed for pain HYDROCODONE-ACETAMINOPHEN 38527048739 No Longer Active Good Julian MD Active CLINDAMYCIN HCL 300 MG CAPS 1 po QID x 7 days CLINDAMYCIN HCL 13027352838 No Longer Active Abdirahman Rios MD Activ e BACTRIM DS 800-160 MG TABS 1 po BID x 7 days 5 SULFAMETHOXAZOLE-TRIMETHOPRIM 02876808949 No Longer Active Abdirahman Rios MD Active ENDOCET 10-325 MG TABS 1 q 6 hr prn OXYCODONE-ACETAMINOPHEN 40497835046 No Longer Active Abdirahman Rios MD Active IBUPROFEN 800 MG TABS 1 tid prn IBUPROFEN 627715 47196 No Longer Active Abdirahman Rios MD Active BACTRIM DS 800-160 MG TABS by mouth twice a day 11/05 SULFAMETHOXAZOLE-TRIMETHOPRIM 14214426979 No Longer Active Good Julian MD Active HYDROCODONE-ACETAMINOPHEN 7.5-325 MG TABS 1 four times a day as needed for pain HYDROCODONE-ACETAMINOPHEN 35318282161 No Longer Activ e Good Julian MD Active KEFLEX 500 MG CAP 1 tab po tid CEPHALEXIN 499065 51824 No Longer Active Hira Moser APRN Active IBUPROFEN 800 MG TAB 1 pill three times daily as needed for pain IBUPROFEN 06942084726 No Longer Active Kalpesh Dong MD Active PROMETHAZINE-CODEINE 6.25-10 MG/5ML SYRP 1 tsp every 6 hrs prn c ough PROMETHAZINE-CODEINE 87468073763 No Longer Active Kalpesh Carr Active HYDROCODONE-ACETAMINOPHEN 5-325 MG TABS 1 tab by mouth every 6 hours as needed HYDROCODONE-ACETAMINOPHEN 32249176883 No Longer Activ e Shola MCGILL Active CEPHALEXIN 500 MG CAPS 1 PO bid x 7 days CEPHAL EXIN 20782443578 No Longer Active Shola MCGILL Active BACTRIM DS 800-160 MG TAB 1 tab by mouth twice daily 2 TRIMETHOPRIM-SULFAMETHOXAZOLE 78565439430 No Longer Active Kalpesh Dong MD Active HYDROCODONE-ACETAMINOPHEN 5-325 MG TABS 1 PO tid PRN pain 5 HYDROCODONE-ACETAMINOPHEN 06182521928 No Longer Active Abhinav Galvan MD Active IMPLANON 68 MG IMPL IMPLANTED IN LEFT ARM ETONO GESTREL 63820102425 No Longer Active Hira Moser APRN Active AMOXICILLIN 500 MG TABS 2 tabs PO bid x 10 d AM OXICILLIN 72619020612 No Longer Active Kalpesh Dong MD Active LEVAQUIN 500 MG TABS 1 PO q day x 7 days LEVOFL OXACIN 14973895987 No Longer Active Shola MCGILL Active AMITRIPTYLINE HCL 25 MG TAB 1 tab by mouth daily 60 minutes before bedtime AMITRIPTYLINE HCL 59872911400 No Longer Active Shola MCGILL Active LORTAB 5 5-500 MG TABS 1/2 to 1 tablet by mouth go ry 6 hours as needed for pain HYDROCODONE-ACETAMINOPHEN 29791697567 No Longer Active Shola MCGILL Active CEPHALEXIN 500 MG TABS Take one by mouth four times daily, morning, noon, early evening and bedtime. CEPHALEXIN 98392007896 No Long er Active Jillina Frazell SCALE MANAGER Active TYLENOL/CODEINE #3 300-30 MG TAB 1-2 po q6hr PRN Pain ACETAMINOPHEN-CODEINE 53874804471 No Longer Active Edilberto Marino DO Active PRISTIQ 50 MG [id number] 1 po qd DESVENLAFAXI NE SUCCINATE 82318814951 No Longer Active Edilberto Marino DO Active PENICILLIN V POTASSIUM 500 MG TAB 1 four times a day 2 PENICILLIN V POTASSIUM 21278747678 No Longer Active Edilberto Marino DO Active DOXYCYCLINE HYCLATE 100 MG CAPS Take one (1) tablet by mouth twice a day DOXYCYCLINE HYCLATE 86002484171 No Longer Active Ronnie Galvan MD Active HYDROCODONE-ACETAMINOPHEN 5-325 MG TABS 1 po q 6hr PRN Pain 2011 HYDROCODONE-ACETAMINOPHEN 09576204190 No Longer Active Jerson Perez RN Active BACTRIM DS 800-160 MG TAB 1 tab by mouth twice daily 2 TRIMETHOPRIM-SULFAMETHOXAZOLE 11078128571 No Longer Active Kalpesh Dong MD Active LORTAB 5 5-500 MG TABS 1/2 to 1 tablet by mouth go ry 4 hours as needed for pain HYDROCODONE-ACETAMINOPHEN 32918616930 No Longer Active Kalpesh Dong MD Active GENERESS FE 0.8-25 MG-MCG CHEW Take one by mouth daily NORETHIN-ETH ESTRADIOL-FE 41829615269 No Longer Active Kalpesh Dong MD Active HYDROCODONE-ACETAMINOPHEN 7.5-500 MG TABS 1-2 every 4 hours as needed HYDROCODONE-ACETAMINOPHEN 73671416241 No Longer Activ e Kalpesh Dong MD Active FERROUS SULFATE 325 (65 FE) MG TABS 1 tablet by mouth twice yung y FERROUS SULFATE 50672021794 No Longer Active Kalpesh Dong MD Active IBUPROFEN 600 MG TAB 1 po q6-8hr PRN IBUPROFEN 31751963379 No Longer Active Kalpesh Dong MD Active SPIRONOLACTONE 25 MG TAB 1 tablet by mouth daily 01/22 SPIRONOLACTONE 83805596898 No Longer Active Kalpesh Dong MD Acti ve HYDROCODONE-ACETAMINOPHEN 7.5-325 MG TABS 1 po QID PRN Pain 2011 HYDROCODONE-ACETAMINOPHEN 99240092563 No Longer Active Kalpesh Dong MD Active CLINDAMYCIN HCL 300 MG CAPS 1 po q6hr x 7 days CLINDAMYCIN HCL 39019995076 No Longer Active Edilberto Marino DO Active PREDNISONE 20 MG TAB 2 tabs daily for 4 days, 1 t ab daily for 4 days, 1/2 tab daily for 4 days PREDNISONE 25534118271 No Longer Active Edilberto Marino DO Active PERCOCET 5-325 MG TABS 1 tablet by mouth every 6 hours as ne eded for pain OXYCODONE-ACETAMINOPHEN 61466268009 No Longer Active Abdirahman Rios MD Active VITAMINS TABS Take one by mouth daily MV & MIN W/FE-FA TABS 97557648487 No Longer Active Abdirahman Rios MD Active LUIS 3-0.02 MG TABS 1 tablet by mouth daily as directed DROSPIRENONE-ETHINYL ESTRADIOL 88439720300 No Longer Active Abdirahman Rios MD Active LORATADINE 10 MG TABS 1 tablet by mouth daily L ORATADINE 25809690306 No Longer Active Kalpesh Dong MD Active HYDROCODONE-ACETAMINOPHEN 5-325 MG TABS 1 po q 6hr PRN Pain 2010 HYDROCODONE-ACETAMINOPHEN 89901448398 No Longer Active Edilberto Marino DO Active BACTRIM DS 800-160 MG TAB 1 tab by mouth twice daily 2 TRIMETHOPRIM-SULFAMETHOXAZOLE 38931659662 No Longer Active Abdirahman Rois MD Active 28-0.8 MG TABS Take one by mouth daily 09/20 VIT-FE FUMARATE-FA 25147324553 No Longer Active Abdirahman Rios MD Active CIPRO 500 MG TAB 1 tablet by mouth twice daily CIPROFLOXACIN HCL 40357512471 No Longer Active Abdirahman Rios MD Active BENADRYL 25 MG CAP 1 po q8hr PRN Congestion DIPHENHYDRAMINE HCL 08094120072 No Longer Active Abdirahman Rios MD Active ZOLOFT 50 MG TAB 1 po qd SERTRALINE HCL 724106 94139 No Longer Active Abdirahman Rios MD Active AMOXICILLIN 875 MG TABS 1 tab by mouth twice daily 201 08/09/13 AMOXICILLIN 41127864144 No Longer Active Abdirahman Rios MD Activ e AMOXICILLIN 875 MG TABS 1 tab by mouth twice daily 201 07/19/27 AMOXICILLIN 40490874365 No Longer Active Abdirahman Rios MD Activ e BACTRIM DS 800-160 MG TAB 2 tab by mouth twice daily 2 TRIMETHOPRIM-SULFAMETHOXAZOLE 87377496626 No Longer Active Abdirahman Rios MD Active KEFLEX 500 MG CAP 1 po tid x 10 days CEPHALEXIN 00546376732 No Longer Active Abdirahman Rios MD Active AMOXICILLIN 875 MG TABS 1 tab by mouth twice daily 201 07/18/07 AMOXICILLIN 44265093031 No Longer Active Abdirahman Rios MD Activ e BACTRIM DS 800-160 MG TAB 2 tab by mouth twice daily 2 BACTRIM DS 800-160 MG TAB TRIMETHOPRIM-SULFAMETHOXAZOLE Inactive ZOLOFT 50 MG TAB 1 po qd ZOLOFT 50 MG TAB 3129 41 SERTRALINE HCL Inactive BENADRYL 25 MG CAP 1 po q8hr PRN Congestion BENADRYL 25 MG CAP 2148721 DIPHENHYDRAMINE HCL Inactive 28-0.8 MG TABS Take one by mouth daily /15 28-0.8 MG TABS VIT-FE FUMARATE-FA Inactive HYDROCODONE-ACETAMINOPHEN 5-325 MG TABS 1 po q 6hr PRN Pain 2010 HYDROCODONE-ACETAMINOPHEN 5-325 MG TABS 295391 HYDROCODONE-ACETAMINOPHEN Inactive LORATADINE 10 MG TABS 1 tablet by mouth daily LORATADINE 10 MG TABS 423280 LORATADINE Inactive LUIS 3-0.02 MG TABS 1 tablet by mouth daily as directed LUIS 3-0.02 MG TABS DROSPIRENONE-ETHINYL ESTRADIOL Inactive VITAMINS TABS Take one by mouth daily VITAMINS TABS MV & MIN W/FE-FA TABS Inactive PERCOCET 5-325 MG TABS 1 tablet by mouth every 6 hours as ne eded for pain PERCOCET 5-325 MG TABS 4750181 OXYCODONE-ACETAMIN OPHEN Inactive PREDNISONE 20 MG TAB 2 tabs daily for 4 days, 1 t ab daily for 4 days, 1/2 tab daily for 4 days PREDNISONE 20 MG TAB 873604 PREDNISON E Inactive CLINDAMYCIN HCL 300 MG CAPS 1 po q6hr x 7 days CLINDAMYCIN HCL 300 MG CAPS 963640 CLINDAMYCIN HCL Inactive HYDROCODONE-ACETAMINOPHEN 7.5-325 MG TABS 1 po QID PRN Pain 2011 HYDROCODONE-ACETAMINOPHEN 7.5-325 MG TABS 381977 HYDROCODONE-ACETAMINOPHEN Inactive SPIRONOLACTONE 25 MG TAB 1 tablet by mouth daily 01/22 SPIRONOLACTONE 25 MG TAB 960276 SPIRONOLACTONE Inactive IBUPROFEN 600 MG TAB 1 po q6-8hr PRN IBUPROFEN 600 MG TAB 370298 IBUPROFEN Inactive FERROUS SULFATE 325 (65 FE) MG TABS 1 tablet by mouth twice yung y FERROUS SULFATE 325 (65 FE) MG TABS 585559 FERROUS SULF ATE Inactive HYDROCODONE-ACETAMINOPHEN 7.5-500 MG TABS 1-2 every 4 hours as needed HYDROCODONE-ACETAMINOPHEN 7.5-500 MG TABS HYDROCODONE-ACETAMINOPHEN Inactive GENERESS FE 0.8-25 MG-MCG CHEW Take one by mouth daily GENERESS FE 0.8-25 MG-MCG CHEW 9038326 NORETHIN-ETH ESTRADIOL-FE Inactive LORTAB 5 5-500 MG [...] PRN Pain 2011 HYDROCODONE-ACETAMINOPHEN 5-325 MG TABS 560993 HYDROCODONE-ACETAMINOPHEN Inactive DOXYCYCLINE HYCLATE 100 MG CAPS Take one (1) tablet by mouth twice a day DOXYCYCLINE HYCLATE 100 MG CAPS 2006397 DOXYCYCLINE HYCLATE Inactive PENICILLIN V POTASSIUM 500 MG TAB 1 four times a day 2 PENICILLIN V POTASSIUM 500 MG TAB 019791 PENICILLIN V POTASSIUM Siri ctive PRISTIQ 50 MG [id number] 1 po qd PRISTIQ 50 MG [id number] DESVENLAFAXINE SUCCINATE Inactive TYLENOL/CODEINE #3 300-30 MG TAB 1-2 po q6hr PRN Pain TYLENOL/CODEINE #3 300-30 MG TAB 071508 ACETAMINOPHEN-CODEINE Inact krishna CEPHALEXIN 500 MG TABS Take one by mouth four times daily, morning, noon, early evening and bedtime. CEPHALEXIN 500 MG TABS 611148 CEPHALEXIN Inactive LORTAB 5 5-500 MG TABS 1/2 to 1 tablet by mouth go ry 6 hours as needed for pain LORTAB 5 5-500 MG TABS HYDROCODONE-A CETAMINOPHEN Inactive AMITRIPTYLINE HCL 25 MG TAB 1 tab by mouth daily 60 minutes before bedtime AMITRIPTYLINE HCL 25 MG TAB 382684 AMITRIPTYLINE HCL Inactive AMOXICILLIN 500 MG TABS 2 tabs PO bid x 10 d 7 AMOXICILLIN 500 MG TABS 725551 AMOXICILLIN Inactive IMPLANON 68 MG IMPL IMPLANTED IN LEFT ARM IMPLANON 68 MG IMPL ETONOGESTREL Inactive HYDROCODONE-ACETAMINOPHEN 5-325 MG TABS 1 PO tid PRN pain 5 HYDROCODONE-ACETAMINOPHEN 5-325 MG TABS 604104 HYDROCODONE-ACETAMIN OPHEN Inactive BACTRIM DS 800-160 MG TAB 1 tab by mouth twice daily 2 BACTRIM DS 800-160 MG TAB TRIMETHOPRIM-SULFAMETHOXAZOLE Inac tive CEPHALEXIN 500 MG CAPS 1 PO bid x 7 days CEPHALEXIN 500 MG CAPS 414069 CEPHALEXIN Inactive HYDROCODONE-ACETAMINOPHEN 5-325 MG TABS 1 tab by mouth every 6 hours as needed HYDROCODONE-ACETAMINOPHEN 5-325 MG TABS 326456 HYDROCODONE-ACETAMINOPHEN Inactive PROMETHAZINE-CODEINE 6.25-10 MG/5ML SYRP 1 tsp every 6 hrs prn c ough PROMETHAZINE-CODEINE 6.25-10 MG/5ML SYRP 072860 PROMETH AZINE-CODEINE Inactive IBUPROFEN 800 MG TAB 1 pill three times daily as needed for pain IBUPROFEN 800 MG TAB 129531 IBUPROFEN Inactive KEFLEX 500 MG CAP 1 tab po tid KEFLEX 500 MG CAP 152451 CEPHALEXIN Inactive HYDROCODONE-ACETAMINOPHEN 7.5-325 MG TABS 1 four times a day as needed for pain HYDROCODONE-ACETAMINOPHEN 7.5-325 MG TABS 691771 HYDROCODONE-ACETAMINOPHEN Inactive BACTRIM DS 800-160 MG TABS by mouth twice a day 11/05 BACTRIM DS 800-160 MG TABS SULFAMETHOXAZOLE-TRIMETHOPRIM Inactive IBUPROFEN 800 MG TABS 1 tid prn IBUPROFEN 800 MG TABS 460421 IBUPROFEN Inactive ENDOCET 10-325 MG TABS 1 q 6 hr prn ENDOC ET 10-325 MG TABS 8253361 OXYCODONE-ACETAMINOPHEN Inactive HYDROCODONE-ACETAMINOPHEN 7.5-325 MG TABS 1 by mouth e very 6 hours as needed for pain HYDROCODONE-ACETAMINOPHEN 7.5-325 MG TABS 457078 HYDROCODONE-ACETAMINOPHEN Inactive PERCOCET 7.5-325 MG TABS 1 PO q 8 hrs PRN pain PERCOCET 7.5-325 MG TABS 1204173 OXYCODONE-ACETAMINOPHEN Inactive LIDODERM 5 % PTCH One patch to painful area IA N. On for 12 hrs, off for 12 hrs. LIDODERM 5 % PTCH 8118085 LIDOCAINE Inactiv e PERCOCET 7.5-325 MG TABS 1 PO tid PRN pain PERCOCET 7.5- 325 MG TABS 2537824 OXYCODONE-ACETAMINOPHEN Inactive MOBIC 15 MG TABS 1 tab daily MOBIC 15 MG TABS 15 2695 MELOXICAM Inactive CYCLOBENZAPRINE HCL 10 MG TABS 1/2 - 1 tab PO tid PRN back p ain, muscle spasm CYCLOBENZAPRINE HCL 10 MG TABS 335451 CYCLOBENZA JOSEPH HCL Inactive LORATADINE 10 MG TABS 1 tablet by mouth daily LORATADINE 10 MG TABS 437415 LORATADINE Inactive HYDROCODONE-ACETAMINOPHEN 10-325 MG TABS 1 by mouth ev chaka 8 hours as needed for pain HYDROCODONE-ACETAMINOPHEN 10-325 MG TABS 452940 HYDROCODONE-ACETAMINOPHEN Inactive LC-5 LIDOCAINE 5 % CREA apply 1 time daily to affected area 2013 LC-5 LIDOCAINE 5 % CREA LIDOCAINE (ANORECTAL) In active PERCOCET 5-325 MG TAB 1 every 6 hours as needed PERCOCET 5-325 MG TAB 4683549 OXYCODONE-ACETAMINOPHEN Inactive KEFLEX 500 MG CAP 1 po qid KEFLEX 500 MG CAP 30 9114 CEPHALEXIN Inactive PROAIR HFA 108 (90 BASE) MCG/ACT AERS 2 puff q 4-6 hrs PRN 01/24 PROAIR HFA 108 (90 BASE) MCG/ACT AERS ALBUTEROL SULFATE Inactive PERCOCET 10-325 MG ORAL TABS 1 every 4 hours as needed PERCOCET 10-325 MG ORAL TABS 0205553 OXYCODONE-ACETAMINOPHEN Inactiv e EMLA 2.5-2.5 % EXT CREA apply to skin lesion q 6 hours, prn 2014 EMLA 2.5-2.5 % EXT CREA 627598 LIDOCAINE-PRILOCAINE [place] ctive PERCOCET 10-325 MG TABS 1 tab by mouth every 6 hours , use sparingly for severe pain PERCOCET 10-325 MG TABS 1697706 OXYCODONE-ACETAMINOPHEN Inactive GLUCOPHAGE 500 MG ORAL TABS one by mouth 3 times a day GLUCOPHAGE 500 MG ORAL TABS 921403 METFORMIN HCL Inactive HYDROCODONE-ACETAMINOPHEN 5-325 MG TABS 1 po q6hr PRN pain 06/30 HYDROCODONE-ACETAMINOPHEN 5-325 MG TABS 714611 HYDROCOD ONE-ACETAMINOPHEN Inactive PERCOCET 5-325 MG TAB 1 tab po q 6 -8 hours, prn for severe pain PERCOCET 5-325 MG TAB 5926808 OXYCODONE-ACETAMINOPHEN In active PERCOCET 5-325 MG ORAL TABS 1 every 6 hours as needed PERCOCET 5-325 MG ORAL TABS 2975983 OXYCODONE-ACETAMINOPHEN Inactive AMOXICILLIN 875 MG TABS 1 tab by mouth twice daily 201 07/18/07 AMOXICILLIN 875 MG TABS 623482 AMOXICILLIN Inactive KEFLEX 500 MG CAP 1 po tid x 10 days KEFLEX 500 MG CAP 053150 CEPHALEXIN Inactive AMOXICILLIN 875 MG TABS 1 tab by mouth twice daily 201 07/19/27 AMOXICILLIN 875 MG TABS 423416 AMOXICILLIN Inactive AMOXICILLIN 875 MG TABS 1 tab by mouth twice daily 201 08/09/13 AMOXICILLIN 875 MG TABS 334130 AMOXICILLIN Inactive CIPRO 500 MG TAB 1 tablet by mouth twice daily CIPRO 500 MG TAB 297150 CIPROFLOXACIN HCL Inactive BACTRIM DS 800-160 MG TAB 1 tab by mouth twice daily 2 BACTRIM DS 800-160 MG TAB TRIMETHOPRIM-SULFAMETHOXAZOLE Inac tive LEVAQUIN 500 MG TABS 1 PO q day x 7 days LEVAQUIN 500 MG TABS 398393 LEVOFLOXACIN Inactive CLINDAMYCIN HCL 300 MG CAPS 1 po QID x 7 days CLINDAMYCIN HCL 300 MG CAPS 070791 CLINDAMYCIN HCL Inactive AUGMENTIN 875-125 MG TAB 1 tab by mouth twice daily with food 20 22/05/07 AUGMENTIN 875-125 MG TAB 592448 AMOXICILLIN-POT CLAVULA [place] Inactive DIFLUCAN 150 MG TAB 1 qODay x 2 doses DIFLUCAN 150 MG TAB 498356 FLUCONAZOLE Inactive PREDNISONE 20 MG TAB 2 tabs daily for 3 days, 1 t ab daily for 3 days, 1/2 tab daily for 2 days PREDNISONE 20 MG TAB 189588 PREDNISON E Inactive AUGMENTIN 875-125 MG TAB 1 tab by mouth twice daily with food 20 21/10/13 AUGMENTIN 875-125 MG TAB 210900 AMOXICILLIN-POT CLAVULA [place] Inactive Advance Directives Directive Description Start Date PERMISSION TO SHARE Immunizations Vaccine Administration Date Value Standard Alf cription Seasonal influenza vaccine, injectable, containing preservative, for > 3 years old (Afluria, FluLaval, Fluzone, Fluvirin, Fluarix, Agriflu(>= 18 yo)) Fluzone (>3 yrs.) [[id number]] Influenza, seasonal, inject able Seasonal influenza vaccine, injectable, preservative free, for > 3 years old (Afluria, FluLaval, Fluzone, Fluvirin, Fluarix, Agriflu(>= 18 yo)) Fluzone preservative free (>3 yrs.) [[id number]] Influenza, seasonal, injectable, preservative free Seasonal influenza vaccine, injectable, containing preservative, for > 3 years old (Afluria, FluLaval, Fluzone, Fluvirin, Fluarix, Agriflu(>= 18 yo)) Fluzone (>3 yrs.) [[id number]] Influenza, seasonal, inject able Seasonal influenza vaccine, injectable, containing preservative, for > 3 years old (Afluria, FluLaval, Fluzone, Fluvirin, Fluarix, Agriflu(>= 18 yo)) Fluzone (>3 yrs.) [[id number]] Influenza, seasonal, inject able dT (Diphtheria and [...] pressure, diastolic - 8462-4 79 mm[Hg] BP ribeior blood pressure, systolic - 8480-6 118 mm[Hg] [...] Panel - Chemistry sodium, serum 142 mmol/L 157-756 5404/05/12 potassium, serum 4.8 mmol/L 3.5-5.2 chloride, serum [...] Panel - Chemistry cholesterol, serum 181 mg/dL 339-868 9069/09/01 triglyceride, serum, fasting 341 mg/dL 30-200 HDL cholesterol, serum 22 mg/dL 32-96 LDL cholesterol, serum 91 mg/dL 0-130 cholesterol, serum 165 mg/dL 597-353 2506/05/12 triglyceride, serum, fasting 524 mg/dL 30-200 HDL [...] negative Encounters Code Encounter Date Provider Facility CPT-73435 Level 3 Est. Patient 14:29:53 CDT Abhinav Galvan MD [facility] CPT-23730 Level 2 Est. Patient 16:33:01 CDT Kalpesh goins MD [facility]-57968 Level 4 Est. Patient 16:44:56 CDT Abdirahman Rios MD [facility]-75765 Level 2 Est. 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 Patient 17:22:33 RADIAL DRILL PRESS OPERATOR FOR PLASTIC dEilberto tiwari [facility]-78405 Level 2 Est. 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 Patient 18:12:34 CDT Shola Thao Adriana [facility] CPT-97693 Level 3 Est. Patient 19:34:46 CDT Shola Wright [facility] CPT-62738 Level 3 Est. Patient 14:19:37 CDT Abdirahman Rios MD [facility]-79604 Level 3 Est. Patient 14:11:58 CDT Kalpesh goins MD [facility] CPT-00873 Level 3 Est. Patient 16:50:00 CDT [facility] Level 3 Est. Patient 17:11:32 [employer] OPERATOR [employer] Brandie bates MD PhD [facility]-91527 Level 3 Est. 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 Patient 17:51:10 RAD[employer] DRILL PRESS OPERATOR FOR P[employer]IC Abhinav Galvan MD [facility] CPT-42449 Level 4 Est. 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 Patient 17:56:58 CDT Shola Houghsabi [facility] CPT-39699 Level 3 Est. Patient 14:26:20 CDT Janak butcher [facility] CPT-25225 Level 3 Est. Patient 09:38:41 CDT Shola Houghsabi [facility] CPT-17734 Level 3 Est. Patient 14:45:26 CDT Edilberto tiwari DO [facility] CPT-17907 Level 3 Est. Patient 10:51:33 CDT [facility]06375 Level 3 Est. 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 Patient 14:42:54 [employer] PRESS OPERATOR FOR PLASTIC Abhinav Galvan MD [facility] CPT-76133 Level 3 Est. Patient 15:10:02 CDT Janak butcher [facility] CPT-95589 Level 3 Est. Patient 15:20:20 CDT Theo dennis MD [facility]-52243 Level 2 Est. Patient 14:08:57 CDT Kalpesh goins MD [facility]-13201 Level 3 Est. Patient 13:56:19 CDT Abdirahman Rios MD [facility] CPT-50159 Level 3 Est. Patient 13:59:37 CDT Abdirahman Rios MD [facility] CPT-71252 Level 2 Est. Patient 14:44:59 CDT Kalpesh goins MD [facility]-74982 Level 3 Est. Patient 06:06:23 CDT Edilberto tiwari [facility] CPT-72252 Level 3 Est. Patient 15:23:54 CDT Abdirahman Rios MD [facility] CPT-76265 Level 3 Est. Patient 15:43:49 CDT Abdirahman Rios MD [facility] CPT-52765 Level 3 Est. 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 Patient 10:56:43 CDT Abdirahman Rios MD [facility] CPT-15792 Level 3 Est. Patient 18:24:52 CDT Abdirahman Rios MD [facility] CPT-04586 Level 3 Est. Patient 13:27:22 CDT Abdirahman Rios MD [facility] Procedures Code Procedure Name Date Entry Date Standard Desc ription CPT-82565 Venipuncture Draw Fee 14:27:29 CDT CPT-40203 Postop F/U Visit 15:27:43 CDT CPT-77111 Postop F/U Visit 14:40:59 CDT CPT-14307 Postop F/U Visit 15:02:46 CDT CPT-45228 Postop F/U Visit 11:29:00 [employer]IAL DRILL PRESS OPERATOR FOR PLASTIC CPT-J0696 Rocephin 1000 mg (Ceftriaxone) 17:22:33 RAD[employer] DRILL PRESS OPERATOR FOR PLASTIC CPT-18970 Postop F/U Visit 18:41:07 RADIAL DRILL PRESS OPERATOR FOR PLASTIC CPT-19084 Postop F/U Visit 08:19:08 RADIAL DRILL PRESS OPERATOR FOR PLASTIC CPT-91004 Immunization Single Admin 16:41:53 CDT 2013 CPT-71968 Fluzone Quadrivalent Intramuscular Suspe nsion 0.5 ML 16:41:53 CDT CPT-OV Office Visit 16:39:18 CDT CPT-OV Office Visit 16:16:36 CDT CPT-OV Office Visit 15:34:48 CDT CPT-47573 Postop F/U Visit 14:50:12 CDT CPT-61105 Postop F/U Visit 14:41:10 CDT CPT-19375 Venipuncture Draw Fee 11:38:04 [employer] DRILL PRESS OPERATOR FOR PLASTIC CPT-33221 Postop F/U Visit 19:02:59 RADIAL DRILL PRESS OPERATOR FOR PLASTIC CPT-13107 Postop F/U Visit 12:04:54 [employer] DRILL PRESS OPERATOR FOR PLASTIC CPT-42072 Administration single or combination vac cine inc oral 15:56:43 CDT CPT-34267 Influenza split virus > age 3 15:56:43 CDT CPT-93568 Hand comp min 3V 14:25:19 CDT CPT-31258 Postop F/U Visit 21:40:51 CDT CPT-21365 Postop F/U Visit 10:58:43 CDT CPT-67302 Administration single or combination vac cine inc oral 12:33:54 [employer] DRILL PRESS OPERATOR FOR PLASTIC CPT-50027 Influenza Preservative Free split virus >age 3 12:33:54 [employer] DRILL PRESS OPERATOR FOR PLASTIC CPT-81966 Administration single or combination vac cine inc oral 09:30:51 CDT CPT-82226 Influenza split virus > age 3 09:30:51 CDT CPT-59374 Postop F/U Visit 15:14:53 CDT CPT-27130 Postop F/U Visit 13:50:14 CDT CPT-39914 Postop F/U Visit 13:34:52 CDT CPT-OV Office Visit 16:55:03 CDT CPT-05024 [place] of cervix w bx ECC 13:32:50 CDT 10/19 CPT-J1885 Toradol 60 mg (Ketorolac) 15:31:59 CDT 2011 CPT-J1885 Toradol 60 mg (Ketorolac) 15:23:54 CDT 2011 CPT-25851 Visit 11:34:37 [employer]IAL DRILL PRESS OPERATOR FOR PLASTIC CPT-39571 Visit 10:52:39 RADIAL DRILL PRESS OPERATOR FOR PLASTIC CPT-30500 Visit 10:12:02 RADIAL DRILL PRESS OPERATOR FOR PLASTIC CPT-35388 Visit 11:22:43 RADIAL DRILL PRESS OPERATOR FOR PLASTIC CPT-17318 Visit 11:24:12 RAD[employer] DRILL PRESS OPERATOR FOR PLASTIC CPT-03475 Visit 10:47:05 RADIAL DRILL PRESS OPERATOR FOR PLASTIC CPT-OV Office Visit 10:26:16 RADIAL DRILL PRESS OPERATOR FOR PLASTIC CPT-OV Office Visit 15:34:31 RADIAL DRILL PRESS OPERATOR FOR PLASTIC CPT-30702 Visit 10:42:08 RAD[employer] DRILL PRESS OPERATOR FOR PLASTIC CPT-00236 Visit 10:52:45 RADIAL DRILL PRESS OPERATOR FOR PLASTIC CPT-000 Give Appropriate Flu Vaccine 16:56:41 CDT 2 CPT-80847 Administration single or combination vac cine inc oral 10:33:21 CDT CPT-08142 Influenza split virus > age 3 10:33:21 CDT CPT-25404 Visit 13:23:09 CDT CPT-18645 Visit 18:24:52 CDT CPT-03871 Sono OB comp > 14 weeks 12:07:49 CDT 04/07
--- OUTSIDE RECORDS SUMMARY | 2020-01-18 15:53 | XMS REPORT | Clinical Summary ---
Author Author Admin, Jeri Rashid Organization [facility] Address Unknown Phone Unavailable Allergies, Adverse [...] mellitus Medication monitoring V58.69 Active Gabriela Goodwin RMMichaela Long-term (current) use of other medications Aftercare [...] Chronic pain syndrome 338.4 Active Rajni Alcazar CRANE SERVICE TECHNICIAN Chronic pain syndrome AFTERCARE FOLLOW SURGERY SKIN&SUBCUT [...] GESTATIONAL AGE ICD-656.60 Inactive Abdirahman Rios MD BRONCHITIS NOT SPECIFIED ACUTE OR CHRONIC ICD-490 [...] FAMILY PLANNING ICD-V25.09 Jose M Julian MD [place] ICD-611.71 Inactive Abdirahman Carr 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 Stormy Julian [...] Generic Name NDC Status Provider Patient Instruction DAYVOCXCLL-YDBI-CJAXZLSA 50-325-40 MG ORAL TABS 1 po TID PRN Headaches [id number] Active Abdirahman owen MD Active CHANTIX STARTING MONTH MARGARITA 0.5 MG X 11 & 1 MG X 42 TAB S 0.5mg daily for 3 days, then 0.5mg BID for 4 days, then 1mg BID VARENICL INE TARTRATE 88742739707 Active Abdirahman Rios MD Active AMOXICILLIN 500 MG CAPS 2 po BID x 10 days AMOX ICILLIN 91330570124 Active Abdirahman Rios MD Active PROMETHAZINE HCL 25 MG TABS 1 four times a day as needed for nausea/vomiting PROMETHAZINE HCL 55639151187 No Longer Active Abdirahman Rios MD Active LC-4 LIDOCAINE 4 % EXT CREA apply q 6 hours, prn 08/03 LIDOCAINE 94485738264 No Longer Active Kalpesh Dong MD Active PERCOCET 10-325 MG TABS 1 tablet every 8 hours as needed for antonia n OXYCODONE-ACETAMINOPHEN 86914456777 No Longer Active Kalpesh Dong MD Active HYDROCODONE-ACETAMINOPHEN 5-325 MG TABS 1 tab by mouth every 6 hours as needed for pain HYDROCODONE-ACETAMINOPHEN 94580701680 No Longer Active Kalpesh Dong MD Active PERCOCET 10-325 MG ORAL TABS 1 every 4 hous as needed OXYCODONE-ACETAMINOPHEN 99805339411 Active Hira Moser APRN Active GLYDO 2 % EXT GEL apply to painful areas as needed LIDOCAINE HCL 16302591782 Active Kalpesh Dong MD Active LC-4 LIDOCAINE 4 % EXT CREA apply to painful area every 12 h ours or as needed LIDOCAINE 44862813273 Active Kalpesh Dong MD Active AUGMENTIN 875-125 MG TAB 1 tab by mouth twice daily with food 20 23/05/16 AMOXICILLIN-POT CLAVULANATE 68601069784 No Longer Active Lizeth hi Yokum CRANE SERVICE TECHNICIAN 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 FLUTICASONE PROPIONATE 90724033015 No Longer Ac tive Rajni Yokum CRANE SERVICE TECHNICIAN Active PERCOCET 10-325 MG ORAL TABS take 1 tab by mouth q 4hours as needed for pain OXYCODONE-ACETAMINOPHEN 02835995853 No Longer Active Rajni Yokum CRANE SERVICE TECHNICIAN Active PERCOCET 10-325 MG ORAL TABS one every 6 hours prn pain OXYCODONE-ACETAMINOPHEN 43653754045 No Longer Active Rajni Yokum CRANE SERVICE TECHNICIAN Active IBUPROFEN 800 MG TABS 1 tab po tid, with food I BUPROFEN 98973538817 Active Hira Moser CRANE SERVICE TECHNICIAN Active DICLOFENAC SODIUM 50 MG TBEC 1 tablet by mouth four times da tom PRN Pain DICLOFENAC SODIUM 97026536131 No Longer Active Rajni Yokum CRANE SERVICE TECHNICIAN Active VIIBRYD 10 & 20 & 40 MG KIT 1 po qd as directed 07/24 VILAZODONE HCL 18045975430 No Longer Active Rajni Yokum CRANE SERVICE TECHNICIAN Active ONDANSETRON 4 MG TBDP 1 q4h PRN nausea ONDANSET KELBY 84563314519 No Longer Active Rajni Yokum CRANE SERVICE TECHNICIAN Active PERCOCET 10-325 MG TABS 1 tablet every 8 hours as needed for antonia n OXYCODONE-ACETAMINOPHEN 24219138175 No Longer Active Rajni Y okum CRANE SERVICE TECHNICIAN Active HYDROCODONE-ACETAMINOPHEN 5-325 MG TABS 1 po TID PRN Pain 9 HYDROCODONE-ACETAMINOPHEN 87257565159 No Longer Active Abdirahman Rios MD Active [id number] 50-325-40 MG ORAL CAPS 1-2 po TID ND N Headache [id number] 76145243742 No Longer Act krishna Kalpesh Dong MD Active ALPRAZOLAM 0.5 MG TABS 1 po BID PRN Anxiety ALP RAZOLAM 72276739486 No Longer Active Kalpesh Dong MD Active TRAZODONE HCL 100 MG TAB 0.5 to 1 po qHS PRN Insomnia TRAZODONE HCL 27599045625 No Longer Active Kalpesh Dong MD Activ e HYDROCODONE-ACETAMINOPHEN 5-325 MG TABS 1 po q6hr PRN Pain 04/09 HYDROCODONE-ACETAMINOPHEN 47769910966 No Longer Active Kalpesh Dong MD Active CYMBALTA 30 MG CPEP 1 cap by mouth daily DULOXE CLEO HCL 56755943566 No Longer Active Abdirahman Rios MD Active IBUPROFEN 600 MG ORAL TABS 1 by mouth twice a day 2014 IBUPROFEN 01644266541 No Longer Active Abdirahman Rios MD Activ e PERCOCET 5-325 MG TAB 1 tab po q 6 hours, prn severe pain 1 OXYCODONE-ACETAMINOPHEN 76653134100 No Longer Active Abdirahman Rios MD Active SPRINTEC 28 0.25-35 MG-MCG TABS 1 pill by mouth daily for bi rth control NORGESTIMATE-ETH ESTRADIOL 86249823541 No Longer Acti ve Hira Moser CRANE SERVICE TECHNICIAN Active CYCLOBENZAPRINE HCL 10 MG TABS 1 tablet by mouth three times daily as needed for muscle spasm/pain CYCLOBENZAPRINE HCL 75954244100 No Longer Active Matthewllina Shanti CRANE SERVICE TECHNICIAN Active HYDROCODONE-ACETAMINOPHEN 5-325 MG TABS 1 po q6hr PRN Pain 03/09 HYDROCODONE-ACETAMINOPHEN 43794378467 No Longer Active Hira Peraza l CRANE SERVICE TECHNICIAN Active AUGMENTIN 500-125 MG ORAL TABS 1 by mouth twice a day AMOXICILLIN-POT CLAVULANATE 93129414595 No Longer Active Hira Perazal CRANE SERVICE TECHNICIAN Active DICLOFENAC SODIUM 50 MG TBEC 1 tablet by mouth four times da tom PRN Pain DICLOFENAC SODIUM 63225756083 No Longer Active Karenin a Karmenl CRANE SERVICE TECHNICIAN Active PROMETHAZINE HCL 25 MG TABS 1 four times a day as needed for nausea/vomiting PROMETHAZINE HCL 99915513152 No Longer Active Abdirahman Rios MD Active HYDROCODONE-ACETAMINOPHEN 5-325 MG TABS 1 tab by mouth every 6 hours as needed PRN Pain HYDROCODONE-ACETAMINOPHEN 54364443343 No Longer Active Abdirahman Rois MD Active GEMFIBROZIL 600 MG TABS 1 po BID GEMFIBROZIL 16770079 005 Active Abdirahman Rios MD Active PERCOCET 5-325 MG ORAL TABS 1 every 6 hours as needed OXYCODONE-ACETAMINOPHEN 96966900075 No Longer Active Abdirahman Rios MD Active PERCOCET 5-325 MG TAB 1 tab po q 6 -8 hours, prn for severe pain OXYCODONE-ACETAMINOPHEN 94192788381 No Longer Active Abdirahman Rios MD Active HYDROCODONE-ACETAMINOPHEN 5-325 MG TABS 1 po q6hr PRN pain 06/30 HYDROCODONE-ACETAMINOPHEN 66920787380 No Longer Active Hira Peraza l CRANE SERVICE TECHNICIAN Active GLUCOPHAGE 500 MG ORAL TABS one by mouth 3 times a day METFORMIN HCL 72641806065 No Longer Active Hira Perazal CRANE SERVICE TECHNICIAN Ac tive PERCOCET 10-325 MG TABS 1 tab by mouth every 6 hours , use sparingly for severe pain OXYCODONE-ACETAMINOPHEN 36505393120 No Longer A ctive Abdirahman Rios MD Active EMLA 2.5-2.5 % EXT CREA apply to skin lesion q 6 hours, prn 2014 LIDOCAINE-PRILOCAINE 35939719787 No Longer Active Abdirahman Rios MD Active PERCOCET 10-325 MG ORAL TABS 1 every 4 hours as needed OXYCODONE-ACETAMINOPHEN 35910141432 No Longer Active Abdirahman Rios MD Active AUGMENTIN 875-125 MG TAB 1 tab by mouth twice daily with food 20 21/10/13 AMOXICILLIN-POT CLAVULANATE 90393229221 No Longer Active Ursula jasmina Frazell CRANE SERVICE TECHNICIAN Active PROAIR HFA 108 (90 BASE) MCG/ACT AERS 2 puff q 4-6 hrs PRN 01/24 ALBUTEROL SULFATE 74987416033 No Longer Active Kalpesh Dong MD Active PREDNISONE 20 MG TAB 2 tabs daily for 3 days, 1 t ab daily for 3 days, 1/2 tab daily for 2 days PREDNISONE 41142298596 No Longer Active Abdirahman Rios MD Active KEFLEX 500 MG CAP 1 po qid CEPHALEXIN 140493787 20 No Longer Active Kalpesh Dong MD Active PERCOCET 5-325 MG TAB 1 every 6 hours as needed OXYCODONE-ACETAMINOPHEN 41701912954 No Longer Active Shola MCGILL Active LC-5 LIDOCAINE 5 % CREA apply 1 time daily to affected area 2013 LIDOCAINE (ANORECTAL) 22192401927 No Longer Active Hira muniz CRANE SERVICE TECHNICIAN Active HYDROCODONE-ACETAMINOPHEN 10-325 MG TABS 1 by mouth ev chaka 8 hours as needed for pain HYDROCODONE-ACETAMINOPHEN 32790568669 No Longer Active Jillina Frazell CRANE SERVICE TECHNICIAN Active LORATADINE 10 MG TABS 1 tablet by mouth daily L ORATADINE 06275871780 No Longer Active Jillina Frazell CRANE SERVICE TECHNICIAN Active DIFLUCAN 150 MG TAB 1 qODay x 2 doses FLUCONAZO LE 92744518131 No Longer Active Jillina Frazell CRANE SERVICE TECHNICIAN Active CYCLOBENZAPRINE HCL 10 MG TABS 1/2 - 1 tab PO tid PRN back p ain, muscle spasm CYCLOBENZAPRINE HCL 12922623387 No Longer Active Karen Moser APRN Active AUGMENTIN 875-125 MG TAB 1 tab by mouth twice daily with food 20 22/05/07 AMOXICILLIN-POT CLAVULANATE 81056779031 No Longer Active Loida Rios MD Active MOBIC 15 MG TABS 1 tab daily MELOXICAM 714075372 14 No Longer Active Abdirahman Rios MD Active PERCOCET 7.5-325 MG TABS 1 PO tid PRN pain OXYCODONE-ACETAMINOPHEN 17941363744 No Longer Active Abdirahman Rios MD Active LIDODERM 5 % PTCH One patch to painful area ND N. On for 12 hrs, off for 12 hrs. LIDOCAINE 83222020165 No Longer Active Abdirahman Rios MD Active PERCOCET 7.5-325 MG TABS 1 PO q 8 hrs PRN pain OXYCODONE-ACETAMINOPHEN 41598160619 No Longer Active Shola MCGILL Active HYDROCODONE-ACETAMINOPHEN 7.5-325 MG TABS 1 by mouth e very 6 hours as needed for pain HYDROCODONE-ACETAMINOPHEN 94239820414 No Longer Active Good Julian MD Active CLINDAMYCIN HCL 300 MG CAPS 1 po QID x 7 days CLINDAMYCIN HCL 60579882563 No Longer Active Abdirahman Rios MD Activ e BACTRIM DS 800-160 MG TABS 1 po BID x 7 days 5 SULFAMETHOXAZOLE-TRIMETHOPRIM 36653258598 No Longer Active Abdirahman Rios MD Active ENDOCET 10-325 MG TABS 1 q 6 hr prn OXYCODONE-ACETAMINOPHEN 02714173205 No Longer Active Abdirahman Rios MD Active IBUPROFEN 800 MG TABS 1 tid prn IBUPROFEN 564926 87880 No Longer Active Abdirahman Rios MD Active BACTRIM DS 800-160 MG TABS by mouth twice a day 11/05 SULFAMETHOXAZOLE-TRIMETHOPRIM 32645506417 No Longer Active Good Julian MD Active HYDROCODONE-ACETAMINOPHEN 7.5-325 MG TABS 1 four times a day as needed for pain HYDROCODONE-ACETAMINOPHEN 64432481099 No Longer Activ e Good Julian MD Active KEFLEX 500 MG CAP 1 tab po tid CEPHALEXIN 675065 91521 No Longer Active Hira Moser APRN Active IBUPROFEN 800 MG TAB 1 pill three times daily as needed for pain IBUPROFEN 67779998020 No Longer Active Kalpesh Dong MD Active PROMETHAZINE-CODEINE 6.25-10 MG/5ML SYRP 1 tsp every 6 hrs prn c ough PROMETHAZINE-CODEINE 73856360435 No Longer Active Kalpesh Carr Active HYDROCODONE-ACETAMINOPHEN 5-325 MG TABS 1 tab by mouth every 6 hours as needed HYDROCODONE-ACETAMINOPHEN 78393583555 No Longer Activ e Shola MCGILL Active CEPHALEXIN 500 MG CAPS 1 PO bid x 7 days CEPHAL EXIN 09689006014 No Longer Active Shola MCGILL Active BACTRIM DS 800-160 MG TAB 1 tab by mouth twice daily 2 TRIMETHOPRIM-SULFAMETHOXAZOLE 20155694516 No Longer Active Kalpesh Dong MD Active HYDROCODONE-ACETAMINOPHEN 5-325 MG TABS 1 PO tid PRN pain 5 HYDROCODONE-ACETAMINOPHEN 27618898011 No Longer Active Abhinav Galvan MD Active IMPLANON 68 MG IMPL IMPLANTED IN LEFT ARM ETONO GESTREL 56706901463 No Longer Active Hira Moser APRN Active AMOXICILLIN 500 MG TABS 2 tabs PO bid x 10 d AM OXICILLIN 53890852034 No Longer Active Kalpesh Dong MD Active LEVAQUIN 500 MG TABS 1 PO q day x 7 days LEVOFL OXACIN 81033517299 No Longer Active Shola MCGILL Active AMITRIPTYLINE HCL 25 MG TAB 1 tab by mouth daily 60 minutes before bedtime AMITRIPTYLINE HCL 03439956229 No Longer Active Shola MCGILL Active LORTAB 5 5-500 MG TABS 1/2 to 1 tablet by mouth go ry 6 hours as needed for pain HYDROCODONE-ACETAMINOPHEN 84307757253 No Longer Active Shola MCGILL Active CEPHALEXIN 500 MG TABS Take one by mouth four times daily, morning, noon, early evening and bedtime. CEPHALEXIN 13418857225 No Long er Active Hira Mosre APRN Active TYLENOL/CODEINE #3 300-30 MG TAB 1-2 po q6hr PRN Pain ACETAMINOPHEN-CODEINE 52825847380 No Longer Active Edilberto Marino DO Active PRISTIQ 50 MG [id number] 1 po qd DESVENLAFAXI NE SUCCINATE 11969303464 No Longer Active Edilberto Marino DO Active PENICILLIN V POTASSIUM 500 MG TAB 1 four times a day 2 PENICILLIN V POTASSIUM 88447098873 No Longer Active Edilberto Marino DO Active DOXYCYCLINE HYCLATE 100 MG CAPS Take one (1) tablet by mouth twice a day DOXYCYCLINE HYCLATE 42846639525 No Longer Active Ronnie Galvan MD Active HYDROCODONE-ACETAMINOPHEN 5-325 MG TABS 1 po q 6hr PRN Pain 2011 HYDROCODONE-ACETAMINOPHEN 90876649602 No Longer Active Patri joan Perez RN Active BACTRIM DS 800-160 MG TAB 1 tab by mouth twice daily 2 TRIMETHOPRIM-SULFAMETHOXAZOLE 59124639804 No Longer Active Kalpesh Dong MD Active LORTAB 5 5-500 MG TABS 1/2 to 1 tablet by mouth go ry 4 hours as needed for pain HYDROCODONE-ACETAMINOPHEN 93118032488 No Longer Active Kalpesh Dong MD Active GENERESS FE 0.8-25 MG-MCG CHEW Take one by mouth daily NORETHIN-ETH ESTRADIOL-FE 67639873881 No Longer Active Kalpesh Dong MD Active HYDROCODONE-ACETAMINOPHEN 7.5-500 MG TABS 1-2 every 4 hours as needed HYDROCODONE-ACETAMINOPHEN 09925073441 No Longer Activ e Kalpesh Dong MD Active FERROUS SULFATE 325 (65 FE) MG TABS 1 tablet by mouth twice yung y FERROUS SULFATE 21988454462 No Longer Active Kalpesh Dong MD Active IBUPROFEN 600 MG TAB 1 po q6-8hr PRN IBUPROFEN 59717792825 No Longer Active Kalpesh Dong MD Active SPIRONOLACTONE 25 MG TAB 1 tablet by mouth daily 01/22 SPIRONOLACTONE 33671217643 No Longer Active Kalpesh Dong MD Acti ve HYDROCODONE-ACETAMINOPHEN 7.5-325 MG TABS 1 po QID PRN Pain 2011 HYDROCODONE-ACETAMINOPHEN 44962187262 No Longer Active Kalpesh Dong MD Active CLINDAMYCIN HCL 300 MG CAPS 1 po q6hr x 7 days CLINDAMYCIN HCL 51995437041 No Longer Active Edilberto Marino DO Active PREDNISONE 20 MG TAB 2 tabs daily for 4 days, 1 t ab daily for 4 days, 1/2 tab daily for 4 days PREDNISONE 89875187147 No Longer Active Edilberto Marino DO Active PERCOCET 5-325 MG TABS 1 tablet by mouth every 6 hours as ne eded for pain OXYCODONE-ACETAMINOPHEN 96459752716 No Longer Active Abdirahman Rios MD Active VITAMINS TABS Take one by mouth daily MV & MIN W/FE-FA TABS 78314381616 No Longer Active Abdirahman Rios MD Active LUIS 3-0.02 MG TABS 1 tablet by mouth daily as directed DROSPIRENONE-ETHINYL ESTRADIOL 14712062201 No Longer Active Abdirahman Rios MD Active LORATADINE 10 MG TABS 1 tablet by mouth daily L ORATADINE 43348527419 No Longer Active Kalpesh Dong MD Active HYDROCODONE-ACETAMINOPHEN 5-325 MG TABS 1 po q 6hr PRN Pain 2010 HYDROCODONE-ACETAMINOPHEN 42554665554 No Longer Active Edilberto Marino DO Active BACTRIM DS 800-160 MG TAB 1 tab by mouth twice daily 2 TRIMETHOPRIM-SULFAMETHOXAZOLE 28740651220 No Longer Active Abdirahman Rios MD Active 28-0.8 MG TABS Take one by mouth daily 09/20 VIT-FE FUMARATE-FA 86427601484 No Longer Active Abdirahman Rios MD Active CIPRO 500 MG TAB 1 tablet by mouth twice daily CIPROFLOXACIN HCL 74475789135 No Longer Active Abdirahman Rios MD Active BENADRYL 25 MG CAP 1 po q8hr PRN Congestion DIPHENHYDRAMINE HCL 29196151946 No Longer Active Abdirahman Rios MD Active ZOLOFT 50 MG TAB 1 po qd SERTRALINE HCL 102370 37615 No Longer Active Abdirahman Rios MD Active AMOXICILLIN 875 MG TABS 1 tab by mouth twice daily 201 08/09/13 AMOXICILLIN 84805436973 No Longer Active Abdirahman Rios MD Activ e AMOXICILLIN 875 MG TABS 1 tab by mouth twice daily 201 07/19/27 AMOXICILLIN 76112239681 No Longer Active Abdirahman Rios MD Activ e BACTRIM DS 800-160 MG TAB 2 tab by mouth twice daily 2 TRIMETHOPRIM-SULFAMETHOXAZOLE 13625121353 No Longer Active Abdirahman Rios MD Active KEFLEX 500 MG CAP 1 po tid x 10 days CEPHALEXIN 33714982271 No Longer Active Abdirahman Rios MD Active AMOXICILLIN 875 MG TABS 1 tab by mouth twice daily 201 07/18/07 AMOXICILLIN 92553307518 No Longer Active Abdirahman Rios MD Activ e BACTRIM DS 800-160 MG TAB 2 tab by mouth twice daily 2 BACTRIM DS 800-160 MG TAB 117961 TRIMETHOPRIM-SULFAMETHOXAZOLE Inactive ZOLOFT 50 MG TAB 1 po qd ZOLOFT 50 MG TAB 3129 41 SERTRALINE HCL Inactive BENADRYL 25 MG CAP 1 po q8hr PRN Congestion BENADRYL 25 MG CAP 1816853 DIPHENHYDRAMINE HCL Inactive 28-0.8 MG TABS Take one by mouth daily 09/20 28-0.8 MG TABS VIT-FE FUMARATE-FA Inactive HYDROCODONE-ACETAMINOPHEN 5-325 MG TABS 1 po q 6hr PRN Pain 2010 HYDROCODONE-ACETAMINOPHEN 5-325 MG TABS 327988 HYDROCODONE-ACETAMINOPHEN Inactive LORATADINE 10 MG TABS 1 tablet by mouth daily LORATADINE 10 MG TABS 996157 LORATADINE Inactive LUIS 3-0.02 MG TABS 1 tablet by mouth daily as directed LUIS 3-0.02 MG TABS 566250 DROSPIRENONE-ETHINYL ESTRADIOL Inactive VITAMINS TABS Take one by mouth daily VITAMINS TABS MV & MIN W/FE-FA TABS Inactive PERCOCET 5-325 MG TABS 1 tablet by mouth every 6 hours as ne eded for pain PERCOCET 5-325 MG TABS 0233947 OXYCODONE-ACETAMIN OPHEN Inactive PREDNISONE 20 MG TAB 2 tabs daily for 4 days, 1 t ab daily for 4 days, 1/2 tab daily for 4 days PREDNISONE 20 MG TAB 862509 PREDNISON E Inactive CLINDAMYCIN HCL 300 MG CAPS 1 po q6hr x 7 days CLINDAMYCIN HCL 300 MG CAPS 028361 CLINDAMYCIN HCL Inactive HYDROCODONE-ACETAMINOPHEN 7.5-325 MG TABS 1 po QID PRN Pain 2011 HYDROCODONE-ACETAMINOPHEN 7.5-325 MG TABS 796270 HYDROCODONE-ACETAMINOPHEN Inactive SPIRONOLACTONE 25 MG TAB 1 tablet by mouth daily 01/22 SPIRONOLACTONE 25 MG TAB 006442 SPIRONOLACTONE Inactive IBUPROFEN 600 MG TAB 1 po q6-8hr PRN IBUPROFEN 600 MG TAB 337308 IBUPROFEN Inactive FERROUS SULFATE 325 (65 FE) MG TABS 1 tablet by mouth twice yung y FERROUS SULFATE 325 (65 FE) MG TABS 571358 FERROUS SULF ATE Inactive HYDROCODONE-ACETAMINOPHEN 7.5-500 MG TABS 1-2 every 4 hours as needed HYDROCODONE-ACETAMINOPHEN 7.5-500 MG TABS HYDROCODONE-ACETAMINOPHEN Inactive GENERESS FE 0.8-25 MG-MCG CHEW Take one by mouth daily GENERESS FE 0.8-25 MG-MCG CHEW 1744186 NORETHIN-ETH ESTRADIOL-FE Inactive LORTAB 5 5-500 MG TABS 1/2 to 1 tablet by mouth go ry 4 hours as needed for pain LORTAB 5 5-500 MG TABS HYDROCODONE-A CETAMINOPHEN Inactive BACTRIM DS 800-160 MG TAB 1 tab by mouth twice daily 2 BACTRIM DS 800-160 MG TAB 647108 TRIMETHOPRIM-SULFAMETHOXAZOLE Inac tive HYDROCODONE-ACETAMINOPHEN 5-325 MG TABS 1 po q 6hr PRN Pain 2011 HYDROCODONE-ACETAMINOPHEN 5-325 MG TABS 813193 HYDROCODONE-ACETAMINOPHEN Inactive DOXYCYCLINE HYCLATE 100 MG CAPS Take one (1) tablet by mouth twice a day DOXYCYCLINE HYCLATE 100 MG CAPS 9737960 DOXYCYCLINE HYCLATE Inactive PENICILLIN V POTASSIUM 500 MG TAB 1 four times a day 2 PENICILLIN V POTASSIUM 500 MG TAB 438168 PENICILLIN V POTASSIUM Siri ctive PRISTIQ 50 MG [id number] 1 po qd PRISTIQ 50 MG [id number] DESVENLAFAXINE SUCCINATE Inactive TYLENOL/CODEINE #3 300-30 MG TAB 1-2 po q6hr PRN Pain TYLENOL/CODEINE #3 300-30 MG TAB 305058 ACETAMINOPHEN-CODEINE Inact krishna CEPHALEXIN 500 MG TABS Take one by mouth four times daily, morning, noon, early evening and bedtime. CEPHALEXIN 500 MG TABS 811699 CEPHALEXIN Inactive LORTAB 5 5-500 MG TABS 1/2 to 1 tablet by mouth go ry 6 hours as needed for pain LORTAB 5 5-500 MG TABS HYDROCODONE-A CETAMINOPHEN Inactive AMITRIPTYLINE HCL 25 MG TAB 1 tab by mouth daily 60 minutes before bedtime AMITRIPTYLINE HCL 25 MG TAB 285129 AMITRIPTYLINE HCL Inactive AMOXICILLIN 500 MG TABS 2 tabs PO bid x 10 d 7 AMOXICILLIN 500 MG TABS 242803 AMOXICILLIN Inactive IMPLANON 68 MG IMPL IMPLANTED IN LEFT ARM IMPLANON 68 MG IMPL ETONOGESTREL Inactive HYDROCODONE-ACETAMINOPHEN 5-325 MG TABS 1 PO tid PRN pain 5 HYDROCODONE-ACETAMINOPHEN 5-325 MG TABS 569381 HYDROCODONE-ACETAMIN OPHEN Inactive BACTRIM DS 800-160 MG TAB 1 tab by mouth twice daily 2 BACTRIM DS 800-160 MG TAB 387760 TRIMETHOPRIM-SULFAMETHOXAZOLE Inac tive CEPHALEXIN 500 MG CAPS 1 PO bid x 7 days CEPHALEXIN 500 MG CAPS 048795 CEPHALEXIN Inactive HYDROCODONE-ACETAMINOPHEN 5-325 MG TABS 1 tab by mouth every 6 hours as needed HYDROCODONE-ACETAMINOPHEN 5-325 MG TABS 543187 HYDROCODONE-ACETAMINOPHEN Inactive PROMETHAZINE-CODEINE 6.25-10 MG/5ML SYRP 1 tsp every 6 hrs prn c ough PROMETHAZINE-CODEINE 6.25-10 MG/5ML SYRP 583739 PROMETH AZINE-CODEINE Inactive IBUPROFEN 800 MG TAB 1 pill three times daily as needed for pain IBUPROFEN 800 MG TAB IBUPROFEN Inactive KEFLEX 500 MG CAP 1 tab po tid KEFLEX 500 MG CAP 008036 CEPHALEXIN Inactive HYDROCODONE-ACETAMINOPHEN 7.5-325 MG TABS 1 four times a day as needed for pain HYDROCODONE-ACETAMINOPHEN 7.5-325 MG TABS 134604 HYDROCODONE-ACETAMINOPHEN Inactive BACTRIM DS 800-160 MG TABS by mouth twice a day 11/05 BACTRIM DS 800-160 MG TABS 029477 SULFAMETHOXAZOLE-TRIMETHOPRIM Inactive IBUPROFEN 800 MG TABS 1 tid prn IBUPROFEN 800 MG TABS 677224 IBUPROFEN Inactive ENDOCET 10-325 MG TABS 1 q 6 hr prn ENDOC ET 10-325 MG TABS 6965362 OXYCODONE-ACETAMINOPHEN Inactive HYDROCODONE-ACETAMINOPHEN 7.5-325 MG TABS 1 by mouth e very 6 hours as needed for pain HYDROCODONE-ACETAMINOPHEN 7.5-325 MG TABS 332364 HYDROCODONE-ACETAMINOPHEN Inactive PERCOCET 7.5-325 MG TABS 1 PO q 8 hrs PRN pain PERCOCET 7.5-325 MG TABS 6605592 OXYCODONE-ACETAMINOPHEN Inactive LIDODERM 5 % PTCH One patch to painful area ND N. On for 12 hrs, off for 12 hrs. LIDODERM 5 % PTCH 1469568 LIDOCAINE Inactiv e PERCOCET 7.5-325 MG TABS 1 PO tid PRN pain PERCOCET 7.5- 325 MG TABS 6823182 OXYCODONE-ACETAMINOPHEN Inactive MOBIC 15 MG TABS 1 tab daily MOBIC 15 MG TABS 15 2695 MELOXICAM Inactive CYCLOBENZAPRINE HCL 10 MG TABS 1/2 - 1 tab PO tid PRN back p ain, muscle spasm CYCLOBENZAPRINE HCL 10 MG TABS 995914 CYCLOBENZA JOSEPH HCL Inactive LORATADINE 10 MG TABS 1 tablet by mouth daily LORATADINE 10 MG TABS 745141 LORATADINE Inactive HYDROCODONE-ACETAMINOPHEN 10-325 MG TABS 1 by mouth ev chaka 8 hours as needed for pain HYDROCODONE-ACETAMINOPHEN 10-325 MG TABS 494040 HYDROCODONE-ACETAMINOPHEN Inactive LC-5 LIDOCAINE 5 % CREA apply 1 time daily to affected area 2013 LC-5 LIDOCAINE 5 % CREA 7320890 LIDOCAINE (ANORECTAL) In active PERCOCET 5-325 MG TAB 1 every 6 hours as needed PERCOCET 5-325 MG TAB 4820021 OXYCODONE-ACETAMINOPHEN Inactive KEFLEX 500 MG CAP 1 po qid KEFLEX 500 MG CAP 30 9114 CEPHALEXIN Inactive PROAIR HFA 108 (90 BASE) MCG/ACT AERS 2 puff q 4-6 hrs PRN 01/24 PROAIR HFA 108 (90 BASE) MCG/ACT AERS ALBUTEROL SULFATE Inactive PERCOCET 10-325 MG ORAL TABS 1 every 4 hours as needed PERCOCET 10-325 MG ORAL TABS 7500869 OXYCODONE-ACETAMINOPHEN Inactiv e EMLA 2.5-2.5 % EXT CREA apply to skin lesion q 6 hours, prn 2014 EMLA 2.5-2.5 % EXT CREA 625055 LIDOCAINE-PRILOCAINE Siri ctive PERCOCET 10-325 MG TABS 1 tab by mouth every 6 hours , use sparingly for severe pain PERCOCET 10-325 MG TABS [id number] OXYCODONE-ACETAMINOPHEN Inactive GLUCOPHAGE 500 MG ORAL TABS one by mouth 3 times a day GLUCOPHAGE 500 MG ORAL TABS [id number] METFORMIN HCL Inactive HYDROCODONE-ACETAMINOPHEN 5-325 MG TABS 1 po q6hr PRN pain 06/30 HYDROCODONE-ACETAMINOPHEN 5-325 MG TABS [id number] HYDROCOD ONE-ACETAMINOPHEN Inactive PERCOCET 5-325 MG TAB 1 tab po q 6 -8 hours, prn for severe pain PERCOCET 5-325 MG TAB [id number] OXYCODONE-ACETAMINOPHEN In active PERCOCET 5-325 MG ORAL TABS 1 every 6 hours as needed PERCOCET 5-325 MG ORAL TABS [id number] OXYCODONE-ACETAMINOPHEN Inactive DICLOFENAC SODIUM 50 MG TBEC 1 tablet by mouth four times da tom PRN Pain DICLOFENAC SODIUM 50 MG TBEC [id number] DICLOFENAC S ODIUM Inactive AUGMENTIN 500-125 MG ORAL TABS 1 by mouth twice a day AUGMENTIN 500-125 MG ORAL TABS [id number] AMOXICILLIN-POT CLAVULANATE I nactive HYDROCODONE-ACETAMINOPHEN 5-325 MG TABS 1 po q6hr PRN Pain 03/09 HYDROCODONE-ACETAMINOPHEN 5-325 MG TABS [id number] HYDROCOD ONE-ACETAMINOPHEN Inactive CYCLOBENZAPRINE HCL 10 MG TABS 1 tablet by mouth three times daily as needed for muscle spasm/pain CYCLOBENZAPRINE HCL 10 MG TABS [id number] CYCLOBENZAPRINE HCL Inactive SPRINTEC 28 0.25-35 MG-MCG TABS 1 pill by mouth daily for bi rth control SPRINTEC 28 0.25-35 MG-MCG TABS [id number] NORGESTIMATE-ETH ESTRADIOL Inactive PERCOCET 5-325 MG TAB 1 tab po q 6 hours, prn severe pain PERCOCET 5-325 MG TAB [id number] OXYCODONE-ACETAMINOPHEN Inactive IBUPROFEN 600 MG ORAL TABS 1 by mouth twice a day 2014 IBUPROFEN 600 MG ORAL TABS [id number] IBUPROFEN Inactive CYMBALTA 30 MG CPEP 1 cap by mouth daily CYMBALTA 30 MG CPEP [id number] DULOXETINE HCL Inactive HYDROCODONE-ACETAMINOPHEN 5-325 MG TABS 1 po q6hr PRN Pain 04/09 HYDROCODONE-ACETAMINOPHEN 5-325 MG TABS [id number] HYDROCOD ONE-ACETAMINOPHEN Inactive TRAZODONE HCL 100 MG TAB 0.5 to 1 po qHS PRN Insomnia TRAZODONE HCL 100 MG TAB [id number] TRAZODONE HCL Inactive ALPRAZOLAM 0.5 MG TABS 1 po BID PRN Anxiety ALPRAZOLAM 0.5 MG TABS 185864 ALPRAZOLAM Inactive [id number] 50-325-40 MG ORAL CAPS 1-2 po TID ND N Headache [id number] 50-325-40 MG ORAL CAPS 2 54493 DIPUGJFVSZ-[id number] Inactive HYDROCODONE-ACETAMINOPHEN 5-325 MG TABS 1 po TID PRN Pain 9 HYDROCODONE-ACETAMINOPHEN 5-325 MG TABS 038484 HYDROCODONE-ACETAMIN OPHEN Inactive PERCOCET 10-325 MG TABS 1 tablet every 8 hours as needed for antonia n PERCOCET 10-325 MG TABS [id number] OXYCODONE-ACETAMINOPHEN Inactive ONDANSETRON 4 MG TBDP 1 q4h PRN nausea ON DANSETRON 4 MG TBDP 429522 ONDANSETRON Inactive VIIBRYD 10 & 20 & 40 MG KIT 1 po qd as directed 07/24 VIIBRYD 10 & 20 & 40 MG KIT VILAZODONE HCL Inactive DICLOFENAC SODIUM 50 MG TBEC 1 tablet by mouth four times da tom PRN Pain DICLOFENAC SODIUM 50 MG TBEC 422868 DICLOFENAC S ODIUM Inactive PERCOCET 10-325 MG ORAL TABS one every 6 hours prn pain PERCOCET 10-325 MG ORAL TABS [id number] OXYCODONE-ACETAMINOPHEN Inactiv e PERCOCET 10-325 MG ORAL TABS take 1 tab by mouth q 4hours as needed for pain PERCOCET 10-325 MG ORAL TABS [id number] OXYCODONE-ACETAMINOPHEN Inactive FLONASE ALLERGY RELIEF 50 MCG/ACT NASAL SUSP One spray in each nostril twice a day. FLONASE ALLERGY RELIEF 50 MCG/ACT NASAL S RETIREMENT 759931 FLUTICASONE PROPIONATE Inactive AUGMENTIN 875-125 MG TAB 1 tab by mouth twice daily with food 20 23/05/16 AUGMENTIN 875-125 MG TAB 408633 AMOXICILLIN-POT [place] Inactive HYDROCODONE-ACETAMINOPHEN 5-325 MG TABS 1 tab by mouth every 6 hours as needed for pain HYDROCODONE-ACETAMINOPHEN 5-325 MG TABS 8 50030 HYDROCODONE-ACETAMINOPHEN Inactive PERCOCET 10-325 MG TABS 1 tablet every 8 hours as needed for antonia n PERCOCET 10-325 MG TABS [id number] OXYCODONE-ACETAMINOPHEN Inactive LC-4 LIDOCAINE 4 % EXT CREA apply q 6 hours, prn 08/03 LC-4 LIDOCAINE 4 % EXT CREA [id number] LIDOCAINE Inactive PROMETHAZINE HCL 25 MG TABS 1 four times a day as needed for nausea/vomiting PROMETHAZINE HCL 25 MG TABS 456591 PROMETHAZINE HCL Inactive AMOXICILLIN 875 MG TABS 1 tab by mouth twice daily 201 07/18/07 AMOXICILLIN 875 MG TABS 750455 AMOXICILLIN Inactive KEFLEX 500 MG CAP 1 po tid x 10 days KEFLEX 500 MG CAP 496886 CEPHALEXIN Inactive AMOXICILLIN 875 MG TABS 1 tab by mouth twice daily 201 07/19/27 AMOXICILLIN 875 MG TABS 021421 AMOXICILLIN Inactive AMOXICILLIN 875 MG TABS 1 tab by mouth twice daily 201 08/09/13 AMOXICILLIN 875 MG TABS 681122 AMOXICILLIN Inactive CIPRO 500 MG TAB 1 tablet by mouth twice daily CIPRO 500 MG TAB 708065 CIPROFLOXACIN HCL Inactive BACTRIM DS 800-160 MG TAB 1 tab by mouth twice daily 2 BACTRIM DS 800-160 MG TAB 679971 TRIMETHOPRIM-SULFAMETHOXAZOLE Inac tive LEVAQUIN 500 MG TABS 1 PO q day x 7 days LEVAQUIN 500 MG TABS 053547 LEVOFLOXACIN Inactive CLINDAMYCIN HCL 300 MG CAPS 1 po QID x 7 days CLINDAMYCIN HCL 300 MG CAPS 605942 CLINDAMYCIN HCL Inactive AUGMENTIN 875-125 MG TAB 1 tab by mouth twice daily with food 20 22/05/07 AUGMENTIN 875-125 MG TAB 730308 AMOXICILLIN-POT [place] Inactive DIFLUCAN 150 MG TAB 1 qODay x 2 doses DIFLUCAN 150 MG TAB 975155 FLUCONAZOLE Inactive PREDNISONE 20 MG TAB 2 tabs daily for 3 days, 1 t ab daily for 3 days, 1/2 tab daily for 2 days PREDNISONE 20 MG TAB 842185 PREDNISON E Inactive AUGMENTIN 875-125 MG TAB 1 tab by mouth twice daily with food 20 21/10/13 AUGMENTIN 875-125 MG TAB 576719 AMOXICILLIN-POT [place] Inactive HYDROCODONE-ACETAMINOPHEN 5-325 MG TABS 1 tab by mouth every 6 hours as needed PRN Pain HYDROCODONE-ACETAMINOPHEN 5-325 MG TABS 8 84636 HYDROCODONE-ACETAMINOPHEN Inactive PROMETHAZINE HCL 25 MG TABS 1 four times a day as needed for nausea/vomiting PROMETHAZINE HCL 25 MG TABS 481421 PROMETHAZINE HCL Inactive Advance Directives Directive Description Start Date PERMISSION TO SHARE Immunizations Vaccine Administration Date Value Standard Alf cription Seasonal influenza vaccine, injectable, containing preservative, for > 3 years old (Afluria, FluLaval, Fluzone, Fluvirin, Fluarix, Agriflu(>= 18 yo)) Fluzone (>3 yrs.) [[id number]] Influenza, seasonal, inject able Seasonal influenza vaccine, injectable, preservative free, for > 3 years old (Afluria, FluLaval, Fluzone, Fluvirin, Fluarix, Agriflu(>= 18 yo)) Fluzone preservative free (>3 yrs.) [[id number]] Influenza, seasonal, injectable, preservative free Seasonal influenza vaccine, injectable, containing preservative, for > 3 years old (Afluria, FluLaval, Fluzone, Fluvirin, Fluarix, Agriflu(>= 18 yo)) Fluzone (>3 yrs.) [[id number]] Influenza, seasonal, inject able Seasonal influenza vaccine, injectable, containing preservative, for > 3 years old (Afluria, FluLaval, Fluzone, Fluvirin, Fluarix, Agriflu(>= 18 yo)) Fluzone (>3 yrs.) [[id number]] Influenza, seasonal, inject able dT (Diphtheria and [...] Panel - Chemistry sodium, serum 142 mmol/L 707-180 6781/05/12 potassium, serum 4.8 mmol/L 3.5-5.2 chloride, serum [...] Panel - Chemistry cholesterol, serum 181 mg/dL 447-163 4381/09/01 triglyceride, serum, fasting 341 mg/dL 30-200 HDL cholesterol, serum 22 mg/dL 32-96 LDL cholesterol, serum 91 mg/dL 0-130 cholesterol, serum 165 mg/dL 406-475 6375/05/12 triglyceride, serum, fasting 524 mg/dL 30-200 HDL cholesterol, serum 24 mg/dL 32-96 Office Visit: Pt is having Pelvic pain [...] negative Encounters Code Encounter Date Provider Facility CPT-50833 Level 4 Est. Patient 16:38:26 [employer] Abdirahman Rios MD [facility] CPT-98274 Level 3 Est. Patient 05:31:41 [employer] Kalpesh goins MD [facility] CPT-14271 Level 3 Est. Patient 11:22:02 [employer] Hira muniz [facility] CPT-55226 Level 3 Est. Patient 21:00:18 [employer] Rajni danielson [facility] CPT-94263 Level 3 Est. Patient 14:15:00 [employer] Kalpesh goins MD [facility] CPT-99974 Level 2 Est. Patient 19:57:52 [employer] Rajni Oconnor jagjit RIVAS [facility] CPT-57374 Level 3 Est. Patient 16:58:40 [employer] Bj funes MD [facility] CPT-91630 Level 3 Est. Patient 08:51:33 CDT Kalpesh goins MD [facility] CPT-98002 Level 4 Est. Patient 14:14:53 CDT Abdirahman Rios MD [facility] CPT-19148 Level 3 Est. Patient 15:47:40 CDT Kalpesh goins MD [facility] CPT-18359 Level 3 Est. Patient 10:57:26 CDT Abdirahman Rios MD [facility] CPT-31976 Level 3 Est. Patient 14:29:53 CDT Abhinav Galvan MD [facility] CPT-89867 Level 2 Est. Patient 16:33:01 CDT Kalpesh goins MD [facility] CPT-47312 Level 4 Est. Patient 16:44:56 CDT Abdirahman Rios MD [facility] CPT-89886 Level 2 Est. Patient 07:49:32 CDT Kalpesh goins MD [facility] CPT-79674 Level 3 New Patient 15:47:11 [employer] Bj huber MD [facility] CPT-51361 Level 4 Est. Patient 14:37:38 [employer] Abdirahman Rios MD [facility] CPT-69875 Level 2 Est. Patient 13:32:17 [employer] Kalpesh goins MD [facility] CPT-04578 Level 3 Est. Patient 17:32:57 [employer] Edilberto tiwari DO [facility] CPT-94530 Level 3 Est. Patient 17:22:33 [employer] Edilberto tiwari DO [facility] CPT-37628 Level 2 Est. Patient 16:57:09 [employer] Kalpesh goins MD [facility]-79277 Level 3 Est. Patient 14:03:08 [employer] Abdirahman Rios MD [facility] CPT-71513 Level 3 Est. Patient 18:12:34 CDT Shola Wright [facility] CPT-82296 Level 3 Est. Patient 19:34:46 CDT Shola Wright [facility] CPT-46536 Level 3 Est. Patient 14:19:37 CDT Abdirahman Rios MD [facility] CPT-01117 Level 3 Est. Patient 14:11:58 CDT Kalpesh goins MD [facility] CPT-69524 Level 3 Est. Patient 16:50:00 [facility] Level 3 Est. Patient 17:11:32 [employer] Brandie bates MD PhD [facility]-75328 Level 3 Est. Patient 16:31:47 [employer] Shola Wright [facility] CPT-63741 Level 3 Est. Patient 17:51:10 [employer] Abhinav Galvan MD [facility] CPT-00425 Level 4 Est. Patient 12:54:56 [employer] Kalpesh goins MD [facility] CPT-36037 Level 4 Est. Patient 12:53:56 [employer] Kalpesh goins MD [facility]-89945 Level 3 Est. Patient 17:56:58 CDT Shola Wright [facility] CPT-67596 Level 3 Est. Patient 14:26:20 CDT Janak butcher [facility] CPT-59615 Level 3 Est. Patient 09:38:41 CDT Shola Wright PA [facility] CPT-48245 Level 3 Est. Patient 14:45:26 CDT Edilberto tiwari [facility] CPT-73966 Level 3 Est. Patient 10:51:33 CDT [facility] Level 3 Est. Patient 11:57:55 [employer] Shola Wright [facility] CPT-45245 Level 3 Est. Patient 09:53:33 [employer] Edilberto tiwari [facility] CPT-47762 Level 3 Est. Patient 14:42:54 [employer] Abhinav Galvan MD [facility]-78541 Level 3 Est. Patient 15:10:02 CDT Janak Stevenamira guadalupe [facility] CPT-16949 Level 3 Est. Patient 15:20:20 CDT Theo dennis MD [facility] CPT-88547 Level 2 Est. Patient 14:08:57 CDT Kalpesh goins MD [facility] CPT-96596 Level 3 Est. Patient 13:56:19 CDT Abdirahman Rios MD [facility] CPT-66266 Level 3 Est. Patient 13:59:37 CDT Abdirahman Rios MD [facility] CPT-08167 Level 2 Est. Patient 14:44:59 CDT Kalpesh goins MD [facility] CPT-50283 Level 3 Est. Patient 06:06:23 CDT Edilberto tiwari [facility] CPT-65012 Level 3 Est. Patient 15:23:54 CDT Abdirahman Rios MD [facility] CPT-51873 Level 3 Est. Patient 15:43:49 CDT Abdirahman Rios MD [facility] CPT-67814 Level 3 Est. Patient 12:46:47 [employer] Abdirahman Rios MD [facility] CPT-90741 Level 3 Est. Patient 08:13:35 [employer] Abdirahman Rios MD [facility] CPT-99988 Level 2 Est. Patient 09:36:42 [employer] Abdirahman Rios MD [facility] CPT-88737 Level 3 Est. Patient 10:56:43 CDT Abdirahman Rios MD [facility] CPT-18850 Level 3 Est. Patient 18:24:52 CDT Abdirahman Rios MD [facility] CPT-87008 Level 3 Est. Patient 13:27:22 CDT Abdirahman Rios MD [facility] Procedures Code Procedure Name Date Entry Date Standard Desc ription CPT-91611 Postop F/U Visit 17:09:41 [employer] CPT-02159 Postop F/U Visit 14:08:43 [employer] CPT-64624 Postop F/U Visit 15:18:16 [employer] CPT-50306 Postop F/U Visit 15:03:49 [employer] CPT-01634 Postop F/U Visit 14:45:23 [employer] CPT-85762 Postop F/U Visit 14:11:03 [employer] CPT-76384 Postop F/U Visit 18:21:21 [employer] CPT-53462 Postop F/U Visit 15:57:12 [employer] CPT-92591 Bladder Instillation 16:58:41 [employer] 6 CPT-78029 Fluzone Quadrivalent Intramuscular Suspe nsion 0.5 ML 15:20:56 [employer] CPT-18373 Immunization Single Admin 15:20:56 [employer] 2014 CPT-00187 Excis pilonidal cyst simple 08:51:34 CDT 20 22/04/20 CPT-48762 Venipuncture Draw Fee 14:27:29 CDT CPT-40702 Postop F/U Visit 15:27:43 CDT CPT-57347 Postop F/U Visit 14:40:59 CDT CPT-04852 Postop F/U Visit 15:02:46 CDT CPT-39105 Postop F/U Visit 11:29:00 [employer] CPT-J0696 Rocephin 1000 mg (Ceftriaxone) 17:22:33 [employer] CPT-66105 Postop F/U Visit 18:41:07 [employer] CPT-38949 Postop F/U Visit 08:19:08 [employer] CPT-65071 Immunization Single Admin 16:41:53 CDT 2013 CPT-99953 Fluzone Quadrivalent Intramuscular Suspe nsion 0.5 ML 16:41:53 CDT CPT-OV Office Visit 16:39:18 CDT CPT-OV Office Visit 16:16:36 CDT CPT-OV Office Visit 15:34:48 CDT CPT-92031 Postop F/U Visit 14:50:12 CDT CPT-66772 Postop F/U Visit 14:41:10 CDT CPT-54005 Venipuncture Draw Fee 11:38:04 [employer] CPT-04382 Postop F/U Visit 19:02:59 [employer] CPT-02314 Postop F/U Visit 12:04:54 [employer] CPT-59122 Administration single or combination vac cine inc oral 15:56:43 CDT CPT-70627 Influenza split virus > age 3 15:56:43 CDT CPT-59298 Hand comp min 3V 14:25:19 CDT CPT-21116 Postop F/U Visit 21:40:51 CDT CPT-64889 Postop F/U Visit 10:58:43 CDT CPT-49639 Administration single or combination vac cine inc oral 12:33:54 [employer] CPT-40167 Influenza Preservative Free split virus >age 3 12:33:54 [employer] CPT-35827 Administration single or combination vac cine inc oral 09:30:51 CDT CPT-60536 Influenza split virus > age 3 09:30:51 CDT CPT-38047 Postop F/U Visit 15:14:53 CDT CPT-65155 Postop F/U Visit 13:50:14 CDT CPT-17895 Postop F/U Visit 13:34:52 CDT CPT-OV Office Visit 16:55:03 CDT CPT-79488 Blair of cervix w bx ECC 13:32:50 CDT 10/19 CPT-J1885 Toradol 60 mg (Ketorolac) 15:31:59 CDT 2011 CPT-J1885 Toradol 60 mg (Ketorolac) 15:23:54 CDT 2011 CPT-35827 Visit 11:34:37 [employer] CPT-42894 Visit 10:52:39 [employer] CPT-41749 Visit 10:12:02 [employer] CPT-22377 Visit 11:22:43 [employer] CPT-96474 Visit 11:24:12 [employer] CPT-90284 Visit 10:47:05 [employer] CPT-OV Office Visit 10:26:16 [employer] CPT-OV Office Visit 15:34:31 [employer] CPT-20429 Visit 10:42:08 [employer] CPT-58825 Visit 10:52:45 [employer] CPT-000 Give Appropriate Flu Vaccine 16:56:41 CDT 2 CPT-91969 Administration single or combination vac cine inc oral 10:33:21 CDT CPT-84430 Influenza split virus > age 3 10:33:21 CDT CPT-54201 Visit 13:23:09 CDT CPT-61836 Visit 18:24:52 CDT CPT-29018 Sono OB comp > 14 weeks 12:07:49 CDT 04/07
--- OUTSIDE RECORDS SUMMARY | 2020-01-18 15:54 | XMS REPORT | Clinical Summary ---
Author Author Admin, Jeri Rashid Organization [facility] Address Unknown Phone Unavailable Allergies, Adverse Reactions, Alerts Allergy Name Reaction Description Start Date Severity Status Pr ovider TORADOL Rash Severe Active Rajni COLORADO RN BACTRIM Critical Active Kalpesh Dong MD ZITHROMAX rash all over Critical Active Darya H aubrey LATEX rash Moderate Active Daryamikhail Pehlan man Conditions or Problems Problem Name Problem [...] MD Acute sinusitis, unspecified SINUSITIS, ACUTE 461.9 Active Rajni Alcazar ROLL CLEANER Acute sinusitis, unspecified BACK PAIN 724.5 Resolved [...] abscess of trunk FH Diabetes V18.0 Resolved Abdriahman Rios MD Family history of diabetes mellitus [...] mellitus Medication monitoring V58.69 Active Gabriela Goodwin A Long-term (current) use of other medications Aftercare [...] ICD-V58.83 Inactive Good Julian MD AMENORRHEA ICD-626.0 Jose M sierra MD AFTERCARE FLW SURG TEETH ORL CAV&DIGESTV SYS NEC ICD-V58.75 Jose M Julian MD ACUTE BRONCHITIS ICD-466.0 Inactive Good [...] Generic Name NDC Status Provider Patient Instruction LC-4 LIDOCAINE 4 % EXT CREA apply q 6 hours, prn 08/03 LIDOCAINE 90532297715 No Longer Active Kalpesh Dong MD Active PERCOCET 10-325 MG TABS 1 tablet every 8 hours as needed for antonia n OXYCODONE-ACETAMINOPHEN 21736595794 No Longer Active Kalpesh Dong MD Active HYDROCODONE-ACETAMINOPHEN 5-325 MG TABS 1 tab by mouth every 6 hours as needed for pain HYDROCODONE-ACETAMINOPHEN 41741055042 No Longer Active Kalpesh Dong MD Active PERCOCET 10-325 MG ORAL TABS 1 every 4 hous as needed OXYCODONE-ACETAMINOPHEN 25743896797 Active Hira Moser APRN Active GLYDO 2 % EXT GEL apply to painful areas as needed LIDOCAINE HCL 41084739835 Active Kalpesh Dong MD Active LC-4 LIDOCAINE 4 % EXT CREA apply to painful area every 12 h ours or as needed LIDOCAINE 71939063810 Active Kalpesh Dong MD Active AUGMENTIN 875-125 MG TAB 1 tab by mouth twice daily with food 20 23/05/16 AMOXICILLIN-POT CLAVULANATE 09832747548 No Longer Active Lizeth hi Yokum ROLL CLEANER 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 FLUTICASONE PROPIONATE 59448547669 No Longer Ac tive Rajni [employer] ROLL CLEANER Active PERCOCET 10-325 MG ORAL TABS take 1 tab by mouth q 4hours as needed for pain OXYCODONE-ACETAMINOPHEN 92309899515 No Longer Active Rajni [place]okum ROLL CLEANER Active PERCOCET 10-325 MG ORAL TABS one every 6 hours prn pain OXYCODONE-ACETAMINOPHEN 83715176821 No Longer Active Rajni Yokum ROLL CLEANER Active IBUPROFEN 800 MG TABS 1 tab po tid, with food I BUPROFEN 12894502280 Active Hira Moser APRN Active DICLOFENAC SODIUM 50 MG TBEC 1 tablet by mouth four times da tom PRN Pain DICLOFENAC SODIUM 13395393271 No Longer Active Rajni Yokum ROLL CLEANER Active VIIBRYD 10 & 20 & 40 MG KIT 1 po qd as directed 07/24 VILAZODONE HCL 95542760008 No Longer Active Rajni Yoyanaum ROLL CLEANER Active ONDANSETRON 4 MG TBDP 1 q4h PRN nausea ONDANSET KELBY 86564276611 No Longer Active Rajni Yoyanaum ROLL CLEANER Active PERCOCET 10-325 MG TABS 1 tablet every 8 hours as needed for antonia n OXYCODONE-ACETAMINOPHEN 08514539898 No Longer Active Rajni cox ROLL CLEANER Active HYDROCODONE-ACETAMINOPHEN 5-325 MG TABS 1 po TID PRN Pain 9 HYDROCODONE-ACETAMINOPHEN 47397360091 No Longer Active Abdirahman Rios MD Active [id number] 50-325-40 MG ORAL CAPS 1-2 po TID ND N Headache [id number] 07018867392 No Longer Act krishna Kalpesh Dong MD Active ALPRAZOLAM 0.5 MG TABS 1 po BID PRN Anxiety ALP RAZOLAM 89289330232 No Longer Active Kalpesh Dong MD Active TRAZODONE HCL 100 MG TAB 0.5 to 1 po qHS PRN Insomnia TRAZODONE HCL 66772873399 No Longer Active Kalpesh Dong MD Activ e HYDROCODONE-ACETAMINOPHEN 5-325 MG TABS 1 po q6hr PRN Pain 04/09 HYDROCODONE-ACETAMINOPHEN 84364950120 No Longer Active Kalpesh Dong MD Active CYMBALTA 30 MG CPEP 1 cap by mouth daily DULOXE CLEO HCL 26059935777 No Longer Active Abdirahman Rios MD Active IBUPROFEN 600 MG ORAL TABS 1 by mouth twice a day 2014 IBUPROFEN 77417945491 No Longer Active Abdirahman Rios MD Activ e PERCOCET 5-325 MG TAB 1 tab po q 6 hours, prn severe pain 1 OXYCODONE-ACETAMINOPHEN 47018066438 No Longer Active Abdirahman Rios MD Active SPRINTEC 28 0.25-35 MG-MCG TABS 1 pill by mouth daily for bi rth control NORGESTIMATE-ETH ESTRADIOL 48874011442 No Longer Acti ve Matthewllina Frazell ROLL CLEANER Active CYCLOBENZAPRINE HCL 10 MG TABS 1 tablet by mouth three times daily as needed for muscle spasm/pain CYCLOBENZAPRINE HCL 16774221522 No Longer Active Jillina Frazell ROLL CLEANER Active HYDROCODONE-ACETAMINOPHEN 5-325 MG TABS 1 po q6hr PRN Pain 03/09 HYDROCODONE-ACETAMINOPHEN 50448231825 No Longer Active Matthewllina Frazel l ROLL CLEANER Active AUGMENTIN 500-125 MG ORAL TABS 1 by mouth twice a day AMOXICILLIN-POT CLAVULANATE 88941468827 No Longer Active Jillina Frazell ROLL CLEANER Active DICLOFENAC SODIUM 50 MG TBEC 1 tablet by mouth four times da tom PRN Pain DICLOFENAC SODIUM 33082412017 No Longer Active Jillin a Karmenl ROLL CLEANER Active PROMETHAZINE HCL 25 MG TABS 1 four times a day as needed for nausea/vomiting PROMETHAZINE HCL 86091864701 No Longer Active Abdirahman Rios MD Active HYDROCODONE-ACETAMINOPHEN 5-325 MG TABS 1 tab by mouth every 6 hours as needed PRN Pain HYDROCODONE-ACETAMINOPHEN 75387354584 No Longer Active Abdirahman Rios MD Active GEMFIBROZIL 600 MG TABS 1 po BID GEMFIBROZIL 98594041 005 Active Abdirahman iRos MD Active PERCOCET 5-325 MG ORAL TABS 1 every 6 hours as needed OXYCODONE-ACETAMINOPHEN 42307706019 No Longer Active Abdirahman Rios MD Active PERCOCET 5-325 MG TAB 1 tab po q 6 -8 hours, prn for severe pain OXYCODONE-ACETAMINOPHEN 67285866397 No Longer Active Abdirahman Rios MD Active HYDROCODONE-ACETAMINOPHEN 5-325 MG TABS 1 po q6hr PRN pain 06/30 HYDROCODONE-ACETAMINOPHEN 23876281109 No Longer Active Hira roman ROLL CLEANER Active GLUCOPHAGE 500 MG ORAL TABS one by mouth 3 times a day METFORMIN HCL 33801727189 No Longer Active Matthewllina Karmenl ROLL CLEANER Ac tive PERCOCET 10-325 MG TABS 1 tab by mouth every 6 hours , use sparingly for severe pain OXYCODONE-ACETAMINOPHEN 14732680080 No Longer A ctive Abdirahman Rios MD Active EMLA 2.5-2.5 % EXT CREA apply to skin lesion q 6 hours, prn 2014 LIDOCAINE-PRILOCAINE 64902772324 No Longer Active Abdirahman Rios MD Active PERCOCET 10-325 MG ORAL TABS 1 every 4 hours as needed OXYCODONE-ACETAMINOPHEN 40407776256 No Longer Active Abdirahman Rios MD Active AUGMENTIN 875-125 MG TAB 1 tab by mouth twice daily with food 20 21/10/13 AMOXICILLIN-POT CLAVULANATE 36041021921 No Longer Active Ursula Moser ROLL CLEANER Active PROAIR HFA 108 (90 BASE) MCG/ACT AERS 2 puff q 4-6 hrs PRN 01/24 ALBUTEROL SULFATE 04405984915 No Longer Active Kalpesh Dong MD Active PREDNISONE 20 MG TAB 2 tabs daily for 3 days, 1 t ab daily for 3 days, 1/2 tab daily for 2 days PREDNISONE 86801230518 No Longer Active Abdirahman Rios MD Active KEFLEX 500 MG CAP 1 po qid CEPHALEXIN 905674129 20 No Longer Active Kalpesh Dong MD Active PERCOCET 5-325 MG TAB 1 every 6 hours as needed OXYCODONE-ACETAMINOPHEN 95535444049 No Longer Active Shola MCGILL Active LC-5 LIDOCAINE 5 % CREA apply 1 time daily to affected area 2013 LIDOCAINE (ANORECTAL) 76410741358 No Longer Active Hira muniz ROLL CLEANER Active HYDROCODONE-ACETAMINOPHEN 10-325 MG TABS 1 by mouth ev chaka 8 hours as needed for pain HYDROCODONE-ACETAMINOPHEN 84061878784 No Longer Active Jillina Joyzell ROLL CLEANER Active LORATADINE 10 MG TABS 1 tablet by mouth daily L ORATADINE 68980221462 No Longer Active Jillina Frazell ROLL CLEANER Active DIFLUCAN 150 MG TAB 1 qODay x 2 doses FLUCONAZO LE 85806391208 No Longer Active Jillina Frazell ROLL CLEANER Active CYCLOBENZAPRINE HCL 10 MG TABS 1/2 - 1 tab PO tid PRN back p ain, muscle spasm CYCLOBENZAPRINE HCL 77476009221 No Longer Active Karen siri Frazell ROLL CLEANER Active AUGMENTIN 875-125 MG TAB 1 tab by mouth twice daily with food 20 22/05/07 AMOXICILLIN-POT CLAVULANATE 70420786266 No Longer Active Loida Rios MD Active MOBIC 15 MG TABS 1 tab daily MELOXICAM 148061375 14 No Longer Active Abdirahman Rios MD Active PERCOCET 7.5-325 MG TABS 1 PO tid PRN pain OXYCODONE-ACETAMINOPHEN 48638926834 No Longer Active Abdirahman Rios MD Active LIDODERM 5 % PTCH One patch to painful area ND N. On for 12 hrs, off for 12 hrs. LIDOCAINE 95973540886 No Longer Active Abdirahman Rios MD Active PERCOCET 7.5-325 MG TABS 1 PO q 8 hrs PRN pain OXYCODONE-ACETAMINOPHEN 51883623631 No Longer Active Shola MCGILL Active HYDROCODONE-ACETAMINOPHEN 7.5-325 MG TABS 1 by mouth e very 6 hours as needed for pain HYDROCODONE-ACETAMINOPHEN 27240896361 No Longer Active Good Julian MD Active CLINDAMYCIN HCL 300 MG CAPS 1 po QID x 7 days CLINDAMYCIN HCL 55388571697 No Longer Active Abdirahman Rios MD Activ e BACTRIM DS 800-160 MG TABS 1 po BID x 7 days 5 SULFAMETHOXAZOLE-TRIMETHOPRIM 83390890005 No Longer Active Abdirahman Rois MD Active ENDOCET 10-325 MG TABS 1 q 6 hr prn OXYCODONE-ACETAMINOPHEN 19899138427 No Longer Active Abdirahman Rios MD Active IBUPROFEN 800 MG TABS 1 tid prn IBUPROFEN 722457 87917 No Longer Active Abdirahman Rios MD Active BACTRIM DS 800-160 MG TABS by mouth twice a day 11/05 SULFAMETHOXAZOLE-TRIMETHOPRIM 82525872897 No Longer Active Good Julian MD Active HYDROCODONE-ACETAMINOPHEN 7.5-325 MG TABS 1 four times a day as needed for pain HYDROCODONE-ACETAMINOPHEN 99337572621 No Longer Activ e Good Julian MD Active KEFLEX 500 MG CAP 1 tab po tid CEPHALEXIN 503820 35301 No Longer Active Hira Moser APRN Active IBUPROFEN 800 MG TAB 1 pill three times daily as needed for pain IBUPROFEN 44514632875 No Longer Active Kalpesh Dong MD Active PROMETHAZINE-CODEINE 6.25-10 MG/5ML SYRP 1 tsp every 6 hrs prn c ough PROMETHAZINE-CODEINE 50336772211 No Longer Active Kalpesh Carr Active HYDROCODONE-ACETAMINOPHEN 5-325 MG TABS 1 tab by mouth every 6 hours as needed HYDROCODONE-ACETAMINOPHEN 76730663650 No Longer Activ e Shola MCGILL Active CEPHALEXIN 500 MG CAPS 1 PO bid x 7 days CEPHAL EXIN 91559940499 No Longer Active Shola MCGILL Active BACTRIM DS 800-160 MG TAB 1 tab by mouth twice daily 2 TRIMETHOPRIM-SULFAMETHOXAZOLE 48701475506 No Longer Active Kalpesh Dong MD Active HYDROCODONE-ACETAMINOPHEN 5-325 MG TABS 1 PO tid PRN pain 5 HYDROCODONE-ACETAMINOPHEN 77736512923 No Longer Active Abhinav Galvan MD Active IMPLANON 68 MG IMPL IMPLANTED IN LEFT ARM ETONO GESTREL 15869808088 No Longer Active Hira Moser APRN Active AMOXICILLIN 500 MG TABS 2 tabs PO bid x 10 d AM OXICILLIN 77670211732 No Longer Active Kalpesh Dong MD Active LEVAQUIN 500 MG TABS 1 PO q day x 7 days LEVOFL OXACIN 78787145029 No Longer Active Shola MCGILL Active AMITRIPTYLINE HCL 25 MG TAB 1 tab by mouth daily 60 minutes before bedtime AMITRIPTYLINE HCL 05766107826 No Longer Active Shola MCGILL Active LORTAB 5 5-500 MG TABS 1/2 to 1 tablet by mouth go ry 6 hours as needed for pain HYDROCODONE-ACETAMINOPHEN 95128613943 No Longer Active Shola MCGILL Active CEPHALEXIN 500 MG TABS Take one by mouth four times daily, morning, noon, early evening and bedtime. CEPHALEXIN 30285516729 No Long er Active Hira Moser APRN Active TYLENOL/CODEINE #3 300-30 MG TAB 1-2 po q6hr PRN Pain ACETAMINOPHEN-CODEINE 13079555669 No Longer Active Edilberto Marino DO Active PRISTIQ 50 MG PH20M-DQR 1 po qd DESVENLAFAXI NE SUCCINATE 58110725786 No Longer Active Edilberto Marino DO Active PENICILLIN V POTASSIUM 500 MG TAB 1 four times a day 2 PENICILLIN V POTASSIUM 66724891690 No Longer Active Edilberto Marino DO Active DOXYCYCLINE HYCLATE 100 MG CAPS Take one (1) tablet by mouth twice a day DOXYCYCLINE HYCLATE 77192843774 No Longer Active Ronnie Galvan MD Active HYDROCODONE-ACETAMINOPHEN 5-325 MG TABS 1 po q 6hr PRN Pain 2011 HYDROCODONE-ACETAMINOPHEN 89949575454 No Longer Active Patri joan Perez RN Active BACTRIM DS 800-160 MG TAB 1 tab by mouth twice daily 2 TRIMETHOPRIM-SULFAMETHOXAZOLE 28412970033 No Longer Active Kalpesh Dong MD Active LORTAB 5 5-500 MG TABS 1/2 to 1 tablet by mouth go ry 4 hours as needed for pain HYDROCODONE-ACETAMINOPHEN 28318629754 No Longer Active Kalpesh Dong MD Active GENERESS FE 0.8-25 MG-MCG CHEW Take one by mouth daily NORETHIN-ETH ESTRADIOL-FE 36714817985 No Longer Active Kalpesh Dong MD Active HYDROCODONE-ACETAMINOPHEN 7.5-500 MG TABS 1-2 every 4 hours as needed HYDROCODONE-ACETAMINOPHEN 99652546546 No Longer Activ e Kalpesh Dong MD Active FERROUS SULFATE 325 (65 FE) MG TABS 1 tablet by mouth twice yung y FERROUS SULFATE 49995536428 No Longer Active Kalpesh Dong MD Active IBUPROFEN 600 MG TAB 1 po q6-8hr PRN IBUPROFEN 76920926765 No Longer Active Kalpesh Dong MD Active SPIRONOLACTONE 25 MG TAB 1 tablet by mouth daily 01/22 SPIRONOLACTONE 00832376181 No Longer Active Kalpesh Dong MD Acti ve HYDROCODONE-ACETAMINOPHEN 7.5-325 MG TABS 1 po QID PRN Pain 2011 HYDROCODONE-ACETAMINOPHEN 49656370456 No Longer Active Kalpesh Dong MD Active CLINDAMYCIN HCL 300 MG CAPS 1 po q6hr x 7 days CLINDAMYCIN HCL 87797541942 No Longer Active Edilberto Marino DO Active PREDNISONE 20 MG TAB 2 tabs daily for 4 days, 1 t ab daily for 4 days, 1/2 tab daily for 4 days PREDNISONE 63348070642 No Longer Active Edilberto Marino DO Active PERCOCET 5-325 MG TABS 1 tablet by mouth every 6 hours as ne eded for pain OXYCODONE-ACETAMINOPHEN 38068052968 No Longer Active Abdirahman Rios MD Active VITAMINS TABS Take one by mouth daily MV & MIN W/FE-FA TABS 86500673493 No Longer Active Abdirahman Rios MD Active LUIS 3-0.02 MG TABS 1 tablet by mouth daily as directed DROSPIRENONE-ETHINYL ESTRADIOL 93645799964 No Longer Active Abdirahman Rios MD Active LORATADINE 10 MG TABS 1 tablet by mouth daily L ORATADINE 89992199633 No Longer Active Kalpesh Dong MD Active HYDROCODONE-ACETAMINOPHEN 5-325 MG TABS 1 po q 6hr PRN Pain 2010 HYDROCODONE-ACETAMINOPHEN 58100987735 No Longer Active Edilberto Marino DO Active BACTRIM DS 800-160 MG TAB 1 tab by mouth twice daily 2 TRIMETHOPRIM-SULFAMETHOXAZOLE 30753704245 No Longer Active Abdirahman Rios MD Active 28-0.8 MG TABS Take one by mouth daily 09/20 VIT-FE FUMARATE-FA 45515613829 No Longer Active Abdirahman Rios MD Active CIPRO 500 MG TAB 1 tablet by mouth twice daily CIPROFLOXACIN HCL 95722191219 No Longer Active Abdirahman Rios MD Active BENADRYL 25 MG CAP 1 po q8hr PRN Congestion DIPHENHYDRAMINE HCL 02549502350 No Longer Active Abdirahman Rios MD Active ZOLOFT 50 MG TAB 1 po qd SERTRALINE HCL 293112 87737 No Longer Active Abdirahman Rios MD Active AMOXICILLIN 875 MG TABS 1 tab by mouth twice daily 201 08/09/13 AMOXICILLIN 24300208919 No Longer Active Abdirahman Rios MD Activ e AMOXICILLIN 875 MG TABS 1 tab by mouth twice daily 201 07/19/27 AMOXICILLIN 08489085902 No Longer Active Abdirahman Rios MD Activ e BACTRIM DS 800-160 MG TAB 2 tab by mouth twice daily 2 TRIMETHOPRIM-SULFAMETHOXAZOLE 88722608389 No Longer Active Abdirahman Rios MD Active KEFLEX 500 MG CAP 1 po tid x 10 days CEPHALEXIN 35845790268 No Longer Active Abdirahman Rios MD Active AMOXICILLIN 875 MG TABS 1 tab by mouth twice daily 201 07/18/07 AMOXICILLIN 86889882839 No Longer Active Abdirahman Rios MD Activ e BACTRIM DS 800-160 MG TAB 2 tab by mouth twice daily 2 BACTRIM DS 800-160 MG TAB 964564 TRIMETHOPRIM-SULFAMETHOXAZOLE Inactive ZOLOFT 50 MG TAB 1 po qd ZOLOFT 50 MG TAB 3129 41 SERTRALINE HCL Inactive BENADRYL 25 MG CAP 1 po q8hr PRN Congestion BENADRYL 25 MG CAP 7892252 DIPHENHYDRAMINE HCL Inactive 28-0.8 MG TABS Take one by mouth daily 09/20 28-0.8 MG TABS VIT-FE FUMARATE-FA Inactive HYDROCODONE-ACETAMINOPHEN 5-325 MG TABS 1 po q 6hr PRN Pain 2010 HYDROCODONE-ACETAMINOPHEN 5-325 MG TABS 733687 HYDROCODONE-ACETAMINOPHEN Inactive LORATADINE 10 MG TABS 1 tablet by mouth daily LORATADINE 10 MG TABS 235435 LORATADINE Inactive LUIS 3-0.02 MG TABS 1 tablet by mouth daily as directed LUIS 3-0.02 MG TABS 360035 DROSPIRENONE-ETHINYL ESTRADIOL Inactive VITAMINS TABS Take one by mouth daily VITAMINS TABS MV & MIN W/FE-FA TABS Inactive PERCOCET 5-325 MG TABS 1 tablet by mouth every 6 hours as ne eded for pain PERCOCET 5-325 MG TABS 0340885 OXYCODONE-ACETAMIN OPHEN Inactive PREDNISONE 20 MG TAB 2 tabs daily for 4 days, 1 t ab daily for 4 days, 1/2 tab daily for 4 days PREDNISONE 20 MG TAB 779954 PREDNISON E Inactive CLINDAMYCIN HCL 300 MG CAPS 1 po q6hr x 7 days CLINDAMYCIN HCL 300 MG CAPS 022787 CLINDAMYCIN HCL Inactive HYDROCODONE-ACETAMINOPHEN 7.5-325 MG TABS 1 po QID PRN Pain 2011 HYDROCODONE-ACETAMINOPHEN 7.5-325 MG TABS 015565 HYDROCODONE-ACETAMINOPHEN Inactive SPIRONOLACTONE 25 MG TAB 1 tablet by mouth daily 01/22 SPIRONOLACTONE 25 MG TAB 845767 SPIRONOLACTONE Inactive IBUPROFEN 600 MG TAB 1 po q6-8hr PRN IBUPROFEN 600 MG TAB 506358 IBUPROFEN Inactive FERROUS SULFATE 325 (65 FE) MG TABS 1 tablet by mouth twice yung y FERROUS SULFATE 325 (65 FE) MG TABS 712298 FERROUS SULF ATE Inactive HYDROCODONE-ACETAMINOPHEN 7.5-500 MG TABS 1-2 every 4 hours as needed HYDROCODONE-ACETAMINOPHEN 7.5-500 MG TABS HYDROCODONE-ACETAMINOPHEN Inactive GENERESS FE 0.8-25 MG-MCG CHEW Take one by mouth daily GENERESS FE 0.8-25 MG-MCG CHEW [id number] NORETHIN-ETH ESTRADIOL-FE Inactive LORTAB 5 5-500 MG TABS 1/2 to 1 tablet by mouth go ry 4 hours as needed for pain LORTAB 5 5-500 MG TABS HYDROCODONE-A CETAMINOPHEN Inactive BACTRIM DS 800-160 MG TAB 1 tab by mouth twice daily 2 BACTRIM DS 800-160 MG TAB 359340 TRIMETHOPRIM-SULFAMETHOXAZOLE Inac tive HYDROCODONE-ACETAMINOPHEN 5-325 MG TABS 1 po q 6hr PRN Pain 2011 HYDROCODONE-ACETAMINOPHEN 5-325 MG TABS 102352 HYDROCODONE-ACETAMINOPHEN Inactive DOXYCYCLINE HYCLATE 100 MG CAPS Take one (1) tablet by mouth twice a day DOXYCYCLINE HYCLATE 100 MG CAPS 9742556 DOXYCYCLINE HYCLATE Inactive PENICILLIN V POTASSIUM 500 MG TAB 1 four times a day 2 PENICILLIN V POTASSIUM 500 MG TAB 587638 PENICILLIN V POTASSIUM Siri ctive PRISTIQ 50 MG [id number] 1 po qd PRISTIQ 50 MG [id number] DESVENLAFAXINE SUCCINATE Inactive TYLENOL/CODEINE #3 300-30 MG TAB 1-2 po q6hr PRN Pain TYLENOL/CODEINE #3 300-30 MG TAB 959729 ACETAMINOPHEN-CODEINE Inact krishna CEPHALEXIN 500 MG TABS Take one by mouth four times daily, morning, noon, early evening and bedtime. CEPHALEXIN 500 MG TABS 854616 CEPHALEXIN Inactive LORTAB 5 5-500 MG TABS 1/2 to 1 tablet by mouth go ry 6 hours as needed for pain LORTAB 5 5-500 MG TABS HYDROCODONE-A CETAMINOPHEN Inactive AMITRIPTYLINE HCL 25 MG TAB 1 tab by mouth daily 60 minutes before bedtime AMITRIPTYLINE HCL 25 MG TAB 217123 AMITRIPTYLINE HCL Inactive AMOXICILLIN 500 MG TABS 2 tabs PO bid x 10 d 7 AMOXICILLIN 500 MG TABS 922676 AMOXICILLIN Inactive IMPLANON 68 MG IMPL IMPLANTED IN LEFT ARM IMPLANON 68 MG IMPL ETONOGESTREL Inactive HYDROCODONE-ACETAMINOPHEN 5-325 MG TABS 1 PO tid PRN pain 5 HYDROCODONE-ACETAMINOPHEN 5-325 MG TABS 207716 HYDROCODONE-ACETAMIN OPHEN Inactive BACTRIM DS 800-160 MG TAB 1 tab by mouth twice daily 2 BACTRIM DS 800-160 MG TAB [id number] TRIMETHOPRIM-SULFAMETHOXAZOLE Inac tive CEPHALEXIN 500 MG CAPS 1 PO bid x 7 days CEPHALEXIN 500 MG CAPS 077059 CEPHALEXIN Inactive HYDROCODONE-ACETAMINOPHEN 5-325 MG TABS 1 tab by mouth every 6 hours as needed HYDROCODONE-ACETAMINOPHEN 5-325 MG TABS 731218 HYDROCODONE-ACETAMINOPHEN Inactive PROMETHAZINE-CODEINE 6.25-10 MG/5ML SYRP 1 tsp every 6 hrs prn c ough PROMETHAZINE-CODEINE 6.25-10 MG/5ML SYRP 428585 PROMETH AZINE-CODEINE Inactive IBUPROFEN 800 MG TAB 1 pill three times daily as needed for pain IBUPROFEN 800 MG TAB 313050 IBUPROFEN Inactive KEFLEX 500 MG CAP 1 tab po tid KEFLEX 500 MG CAP 717814 CEPHALEXIN Inactive HYDROCODONE-ACETAMINOPHEN 7.5-325 MG TABS 1 four times a day as needed for pain HYDROCODONE-ACETAMINOPHEN 7.5-325 MG TABS 797880 HYDROCODONE-ACETAMINOPHEN Inactive BACTRIM DS 800-160 MG TABS by mouth twice a day 11/05 BACTRIM DS 800-160 MG TABS 19820910 SULFAMETHOXAZOLE-TRIMETHOPRIM Inactive IBUPROFEN 800 MG TABS 1 tid prn IBUPROFEN 800 MG TABS 568460 IBUPROFEN Inactive ENDOCET 10-325 MG TABS 1 q 6 hr prn ENDOC ET 10-325 MG TABS 8656127 OXYCODONE-ACETAMINOPHEN Inactive HYDROCODONE-ACETAMINOPHEN 7.5-325 MG TABS 1 by mouth e very 6 hours as needed for pain HYDROCODONE-ACETAMINOPHEN 7.5-325 MG TABS 174699 HYDROCODONE-ACETAMINOPHEN Inactive PERCOCET 7.5-325 MG TABS 1 PO q 8 hrs PRN pain PERCOCET 7.5-325 MG TABS 2075633 OXYCODONE-ACETAMINOPHEN Inactive LIDODERM 5 % PTCH One patch to painful area ND N. On for 12 hrs, off for 12 hrs. LIDODERM 5 % PTCH 8227020 LIDOCAINE Inactiv e PERCOCET 7.5-325 MG TABS 1 PO tid PRN pain PERCOCET 7.5- 325 MG TABS 7171903 OXYCODONE-ACETAMINOPHEN Inactive MOBIC 15 MG TABS 1 tab daily MOBIC 15 MG TABS 15 2695 MELOXICAM Inactive CYCLOBENZAPRINE HCL 10 MG TABS 1/2 - 1 tab PO tid PRN back p ain, muscle spasm CYCLOBENZAPRINE HCL 10 MG TABS 656397 CYCLOBENZA JOSEPH HCL Inactive LORATADINE 10 MG TABS 1 tablet by mouth daily LORATADINE 10 MG TABS 328902 LORATADINE Inactive HYDROCODONE-ACETAMINOPHEN 10-325 MG TABS 1 by mouth ev chaka 8 hours as needed for pain HYDROCODONE-ACETAMINOPHEN 10-325 MG TABS 903586 HYDROCODONE-ACETAMINOPHEN Inactive LC-5 LIDOCAINE 5 % CREA apply 1 time daily to affected area 2013 LC-5 LIDOCAINE 5 % CREA 8990313 LIDOCAINE (ANORECTAL) In active PERCOCET 5-325 MG TAB 1 every 6 hours as needed PERCOCET 5-325 MG TAB 3435092 OXYCODONE-ACETAMINOPHEN Inactive KEFLEX 500 MG CAP 1 po qid KEFLEX 500 MG CAP 30 9114 CEPHALEXIN Inactive PROAIR HFA 108 (90 BASE) MCG/ACT AERS 2 puff q 4-6 hrs PRN 01/24 PROAIR HFA 108 (90 BASE) MCG/ACT AERS ALBUTEROL SULFATE Inactive PERCOCET 10-325 MG ORAL TABS 1 every 4 hours as needed PERCOCET 10-325 MG ORAL TABS 9126399 OXYCODONE-ACETAMINOPHEN Inactiv e EMLA 2.5-2.5 % EXT CREA apply to skin lesion q 6 hours, prn 2014 EMLA 2.5-2.5 % EXT CREA 666326 LIDOCAINE-PRILOCAINE Siri ctive PERCOCET 10-325 MG TABS 1 tab by mouth every 6 hours , use sparingly for severe pain PERCOCET 10-325 MG TABS 6511399 OXYCODONE-ACETAMINOPHEN Inactive GLUCOPHAGE 500 MG ORAL TABS one by mouth 3 times a day GLUCOPHAGE 500 MG ORAL TABS 348100 METFORMIN HCL Inactive HYDROCODONE-ACETAMINOPHEN 5-325 MG TABS 1 po q6hr PRN pain 06/30 HYDROCODONE-ACETAMINOPHEN 5-325 MG TABS 889071 HYDROCOD ONE-ACETAMINOPHEN Inactive PERCOCET 5-325 MG TAB 1 tab po q 6 -8 hours, prn for severe pain PERCOCET 5-325 MG TAB 5278376 OXYCODONE-ACETAMINOPHEN In active PERCOCET 5-325 MG ORAL TABS 1 every 6 hours as needed PERCOCET 5-325 MG ORAL TABS 1147076 OXYCODONE-ACETAMINOPHEN Inactive DICLOFENAC SODIUM 50 MG TBEC 1 tablet by mouth four times da tom PRN Pain DICLOFENAC SODIUM 50 MG TBEC [id number] DICLOFENAC S ODIUM Inactive AUGMENTIN 500-125 MG ORAL TABS 1 by mouth twice a day AUGMENTIN 500-125 MG ORAL TABS [id number] AMOXICILLIN-POT CLAVULANATE I nactive HYDROCODONE-ACETAMINOPHEN 5-325 MG TABS 1 po q6hr PRN Pain 03/09 HYDROCODONE-ACETAMINOPHEN 5-325 MG TABS [id number] HYDROCOD ONE-ACETAMINOPHEN Inactive CYCLOBENZAPRINE HCL 10 MG TABS 1 tablet by mouth three times daily as needed for muscle spasm/pain CYCLOBENZAPRINE HCL 10 MG TABS [id number] CYCLOBENZAPRINE HCL Inactive SPRINTEC 28 0.25-35 MG-MCG TABS 1 pill by mouth daily for bi rth control SPRINTEC 28 0.25-35 MG-MCG TABS [id number] NORGESTIMATE-ETH ESTRADIOL Inactive PERCOCET 5-325 MG TAB 1 tab po q 6 hours, prn severe pain PERCOCET 5-325 MG TAB [id number] OXYCODONE-ACETAMINOPHEN Inactive IBUPROFEN 600 MG ORAL TABS 1 by mouth twice a day 2014 IBUPROFEN 600 MG ORAL TABS [id number] IBUPROFEN Inactive CYMBALTA 30 MG CPEP 1 cap by mouth daily CYMBALTA 30 MG CPEP [id number] DULOXETINE HCL Inactive HYDROCODONE-ACETAMINOPHEN 5-325 MG TABS 1 po q6hr PRN Pain 04/09 HYDROCODONE-ACETAMINOPHEN 5-325 MG TABS [id number] HYDROCOD ONE-ACETAMINOPHEN Inactive TRAZODONE HCL 100 MG TAB 0.5 to 1 po qHS PRN Insomnia TRAZODONE HCL 100 MG TAB [id number] TRAZODONE HCL Inactive ALPRAZOLAM 0.5 MG TABS 1 po BID PRN Anxiety ALPRAZOLAM 0.5 MG TABS [id number] ALPRAZOLAM Inactive [id number] 50-325-40 MG ORAL CAPS 1-2 po TID ND N Headache [id number] 50-325-40 MG ORAL CAPS 2 81150 [id number] Inactive HYDROCODONE-ACETAMINOPHEN 5-325 MG TABS 1 po TID PRN Pain 9 HYDROCODONE-ACETAMINOPHEN 5-325 MG TABS [id number] HYDROCODONE-ACETAMIN OPHEN Inactive PERCOCET 10-325 MG TABS 1 tablet every 8 hours as needed for antonia n PERCOCET 10-325 MG TABS [id number] OXYCODONE-ACETAMINOPHEN Inactive ONDANSETRON 4 MG TBDP 1 q4h PRN nausea ON DANSETRON 4 MG TBDP [id number] ONDANSETRON Inactive VIIBRYD 10 & 20 & 40 MG KIT 1 po qd as directed 07/24 VIIBRYD 10 & 20 & 40 MG KIT VILAZODONE HCL Inactive DICLOFENAC SODIUM 50 MG TBEC 1 tablet by mouth four times da tom PRN Pain DICLOFENAC SODIUM 50 MG TBEC [id number] DICLOFENAC S ODIUM Inactive PERCOCET 10-325 MG ORAL TABS one every 6 hours prn pain PERCOCET 10-325 MG ORAL TABS [id number] OXYCODONE-ACETAMINOPHEN Inactiv e PERCOCET 10-325 MG ORAL TABS take 1 tab by mouth q 4hours as needed for pain PERCOCET 10-325 MG ORAL TABS [id number] OXYCODONE-ACETAMINOPHEN Inactive FLONASE ALLERGY RELIEF 50 MCG/ACT NASAL SUSP One spray in each nostril twice a day. FLONASE ALLERGY RELIEF 50 MCG/ACT NASAL S SNF 615947 FLUTICASONE PROPIONATE Inactive AUGMENTIN 875-125 MG TAB 1 tab by mouth twice daily with food 20 23/05/16 AUGMENTIN 875-125 MG TAB 882165 AMOXICILLIN-POT [place] Inactive HYDROCODONE-ACETAMINOPHEN 5-325 MG TABS 1 tab by mouth every 6 hours as needed for pain HYDROCODONE-ACETAMINOPHEN 5-325 MG TABS 8 42645 HYDROCODONE-ACETAMINOPHEN Inactive PERCOCET 10-325 MG TABS 1 tablet every 8 hours as needed for antonia n PERCOCET 10-325 MG TABS [id number] OXYCODONE-ACETAMINOPHEN Inactive LC-4 LIDOCAINE 4 % EXT CREA apply q 6 hours, prn 08/03 LC-4 LIDOCAINE 4 % EXT CREA [id number] LIDOCAINE Inactive AMOXICILLIN 875 MG TABS 1 tab by mouth twice daily 201 07/18/07 AMOXICILLIN 875 MG TABS 977345 AMOXICILLIN Inactive KEFLEX 500 MG CAP 1 po tid x 10 days KEFLEX 500 MG CAP 449544 CEPHALEXIN Inactive AMOXICILLIN 875 MG TABS 1 tab by mouth twice daily 201 07/19/27 AMOXICILLIN 875 MG TABS 210282 AMOXICILLIN Inactive AMOXICILLIN 875 MG TABS 1 tab by mouth twice daily 201 08/09/13 AMOXICILLIN 875 MG TABS 379044 AMOXICILLIN Inactive CIPRO 500 MG TAB 1 tablet by mouth twice daily CIPRO 500 MG TAB 500370 CIPROFLOXACIN HCL Inactive BACTRIM DS 800-160 MG TAB 1 tab by mouth twice daily 2 BACTRIM DS 800-160 MG TAB 407598 TRIMETHOPRIM-SULFAMETHOXAZOLE Inac tive LEVAQUIN 500 MG TABS 1 PO q day x 7 days LEVAQUIN 500 MG TABS 714658 LEVOFLOXACIN Inactive CLINDAMYCIN HCL 300 MG CAPS 1 po QID x 7 days CLINDAMYCIN HCL 300 MG CAPS 579262 CLINDAMYCIN HCL Inactive AUGMENTIN 875-125 MG TAB 1 tab by mouth twice daily with food 20 22/05/07 AUGMENTIN 875-125 MG TAB 684434 AMOXICILLIN-POT [place] Inactive DIFLUCAN 150 MG TAB 1 qODay x 2 doses DIFLUCAN 150 MG TAB 278198 FLUCONAZOLE Inactive PREDNISONE 20 MG TAB 2 tabs daily for 3 days, 1 t ab daily for 3 days, 1/2 tab daily for 2 days PREDNISONE 20 MG TAB 991633 PREDNISON E Inactive AUGMENTIN 875-125 MG TAB 1 tab by mouth twice daily with food 20 21/10/13 AUGMENTIN 875-125 MG TAB 652992 AMOXICILLIN-POT [place] Inactive HYDROCODONE-ACETAMINOPHEN 5-325 MG TABS 1 tab by mouth every 6 hours as needed PRN Pain HYDROCODONE-ACETAMINOPHEN 5-325 MG TABS 8 78616 HYDROCODONE-ACETAMINOPHEN Inactive PROMETHAZINE HCL 25 MG TABS 1 four times a day as needed for nausea/vomiting PROMETHAZINE HCL 25 MG TABS 357227 PROMETHAZINE HCL Inactive Advance Directives Directive Description Start Date PERMISSION TO SHARE Immunizations Vaccine Administration Date Value Standard Alf cription Seasonal influenza vaccine, injectable, containing preservative, for > 3 years old (Afluria, FluLaval, Fluzone, Fluvirin, Fluarix, Agriflu(>= 18 yo)) Fluzone (>3 yrs.) [[id number]] Influenza, seasonal, inject able Seasonal influenza vaccine, injectable, preservative free, for > 3 years old (Afluria, FluLaval, Fluzone, Fluvirin, Fluarix, Agriflu(>= 18 yo)) Fluzone preservative free (>3 yrs.) [[id number]] Influenza, seasonal, injectable, preservative free Seasonal influenza vaccine, injectable, containing preservative, for > 3 years old (Afluria, FluLaval, Fluzone, Fluvirin, Fluarix, Agriflu(>= 18 yo)) Fluzone (>3 yrs.) [[id number]] Influenza, seasonal, inject able Seasonal influenza vaccine, injectable, containing preservative, for > 3 years old (Afluria, FluLaval, Fluzone, Fluvirin, Fluarix, Agriflu(>= 18 yo)) Fluzone (>3 yrs.) [[id number]] Influenza, seasonal, inject able dT (Diphtheria and Tetanus) booster given Histor ica Td(adult) unspecified formulation Vital Signs Date Name Value Unit Range Description blood pressure, diastolic - 8462-4 92 mm[Hg] [...] - 3141-9 232.7 [lb_av] Weigh t Measured Diagnostic Results Date [...] Panel - Chemistry sodium, serum 142 mmol/L 626-298 1827/05/12 potassium, serum 4.8 mmol/L 3.5-5.2 chloride, serum [...] Panel - Chemistry cholesterol, serum 165 mg/dL 556-280 0507/05/12 triglyceride, serum, fasting 524 mg/dL 30-200 HDL cholesterol, serum 24 mg/dL 32-96 cholesterol, serum 181 mg/dL 381-668 6093/09/01 triglyceride, serum, fasting 341 mg/dL 30-200 HDL cholesterol, serum 22 mg/dL 32-96 LDL cholesterol, serum 91 mg/dL 0-130 Office Visit: CN bladder problems - Mariah [...] (dipstick) 0.2 protein, urine, semiquantitative (dipstick) negative Office Visit: Pt is having Pelvic pain [...] negative Encounters Code Encounter Date Provider Facility CPT-68577 Level 3 Est. Patient 05:31:41 RN INTERNSHIP Kalpesh goins MD [facility] CPT-84753 Level 3 Est. Patient 11:22:02 RN INTERNSHIP Hira muniz [facility] CPT-19375 Level 3 Est. Patient 21:00:18 RN INTERNSHIP Rajni danielson [facility] CPT-10572 Level 3 Est. Patient 14:15:00 RN INTERNSHIP Kalpesh goins MD [facility] CPT-83004 Level 2 Est. Patient 19:57:52 RN INTERNSHIP Rajni danielson [facility] CPT-69406 Level 3 Est. Patient 16:58:40 RN INTERNSHIP Bj funes MD [facility] CPT-92479 Level 3 Est. Patient 08:51:33 CDT Kalpesh goins MD [facility] CPT-25455 Level 4 Est. Patient 14:14:53 CDT Abdirahman Rios MD [facility] CPT-94195 Level 3 Est. Patient 15:47:40 CDT Kalpesh goins MD [facility]-94347 Level 3 Est. Patient 10:57:26 CDT Abdirahman Rios MD [facility] CPT-84666 Level 3 Est. Patient 14:29:53 CDT Abhinav Galvan MD [facility]-27866 Level 2 Est. Patient 16:33:01 CDT Kalpesh goins MD [facility]-91305 Level 4 Est. Patient 16:44:56 CDT Abdirahman Rios MD [facility] CPT-59739 Level 2 Est. Patient 07:49:32 CDT Kalpesh goins MD [facility] CPT-67060 Level 3 New Patient 15:47:11 RN INTERNSHIP Bj huber MD [facility]-82658 Level 4 Est. Patient 14:37:38 RN INTERNSHIP Abdirahman Rios MD [facility] CPT-66108 Level 2 Est. Patient 13:32:17 RN INTERNSHIP Kalpesh goins MD [facility]-07143 Level 3 Est. Patient 17:32:57 RN INTERNSHIP Edilberto tiwari [facility] CPT-67637 Level 3 Est. Patient 17:22:33 RN INTERNSHIP Edilberto tiwari [facility] CPT-76244 Level 2 Est. Patient 16:57:09 RN INTERNSHIP Kalpesh goins MD [facility]-22108 Level 3 Est. Patient 14:03:08 RN INTERNSHIP Abdirahman Rios MD [facility] CPT-78592 Level 3 Est. Patient 18:12:34 CDT Shola Wright [facility] CPT-35654 Level 3 Est. Patient 19:34:46 CDT Shola Wright [facility] CPT-61767 Level 3 Est. Patient 14:19:37 CDT Abdirahman Rios MD [facility] CPT-78558 Level 3 Est. Patient 14:11:58 CDT Kalpesh goins MD [facility] CPT-38251 Level 3 Est. Patient 16:50:00 CDT Michelle BRADFORDP [facility] CPT-99336 Level 3 Est. Patient 17:11:32 RN INTERNSHIP Brandie bates MD PhD [facility] CPT-62262 Level 3 Est. Patient 16:31:47 RN INTERNSHIP Shola Wright [facility] CPT-52969 Level 3 Est. Patient 17:51:10 RN INTERNSHIP Abhinav Galvan MD [facility] CPT-04997 Level 4 Est. Patient 12:54:56 RN INTERNSHIP Kalpesh goins MD [facility]-37072 Level 4 Est. Patient 12:53:56 RN INTERNSHIP Kalpesh goins MD [facility] CPT-34200 Level 3 Est. Patient 17:56:58 CDT Shola Wright [facility] CPT-79021 Level 3 Est. Patient 14:26:20 CDT Janak butcher [facility] CPT-35696 Level 3 Est. Patient 09:38:41 CDT Shola Wright [facility] CPT-43863 Level 3 Est. Patient 14:45:26 CDT Edilberto tiwari [facility] CPT-25830 Level 3 Est. Patient 10:51:33 CDT Hira muniz [facility] CPT-94569 Level 3 Est. Patient 11:57:55 RN INTERNSHIP Shola Wright [facility] CPT-23184 Level 3 Est. Patient 09:53:33 RN INTERNSHIP Edilberto tiwari [facility] CPT-62520 Level 3 Est. Patient 14:42:54 RN INTERNSHIP Abhinav Galvan MD [facility] CPT-68667 Level 3 Est. Patient 15:10:02 CDT Janak MCGILL [facility] CPT-71720 Level 3 Est. Patient 15:20:20 CDT Theo dennis MD [facility] CPT-29102 Level 2 Est. Patient 14:08:57 CDT Kalpesh goins MD [facility] CPT-98391 Level 3 Est. Patient 13:56:19 CDT Abdirahman Rios MD [facility] CPT-74740 Level 3 Est. Patient 13:59:37 CDT Abdirahman Rios MD [facility] CPT-12869 Level 2 Est. Patient 14:44:59 CDT Kalpesh goins MD [facility] CPT-34372 Level 3 Est. Patient 06:06:23 CDT Edilberto tiwari DO [facility] CPT-06841 Level 3 Est. Patient 15:23:54 CDT Abdirahman Rios MD [facility] CPT-69378 Level 3 Est. Patient 15:43:49 CDT Abdirahman Rios MD [facility] CPT-41939 Level 3 Est. Patient 12:46:47 RN INTERNSHIP Abdirahman Rios MD [facility] CPT-73752 Level 3 Est. Patient 08:13:35 RN INTERNSHIP Abdirahman Rios MD [facility] CPT-61505 Level 2 Est. Patient 09:36:42 RN INTERNSHIP Abdirahman Rios MD [facility] CPT-09164 Level 3 Est. Patient 10:56:43 CDT Abdirahman Rios MD [facility] CPT-27364 Level 3 Est. Patient 18:24:52 CDT Abdirahman Rios MD [facility] CPT-37704 Level 3 Est. Patient 13:27:22 CDT Abdirahman Rios MD [facility] Procedures Code Procedure Name Date Entry Date Standard Desc ription CPT-28245 Postop F/U Visit 14:08:43 RN INTERNSHIP CPT-24023 Postop F/U Visit 15:18:16 RN INTERNSHIP CPT-42528 Postop F/U Visit 15:03:49 RN INTERNSHIP CPT-17906 Postop F/U Visit 14:45:23 RN INTERNSHIP CPT-54610 Postop F/U Visit 14:11:03 RN INTERNSHIP CPT-36969 Postop F/U Visit 18:21:21 RN INTERNSHIP CPT-60270 Postop F/U Visit 15:57:12 RN INTERNSHIP CPT-92240 Bladder Instillation 16:58:41 RN INTERNSHIP 6 CPT-51592 Fluzone Quadrivalent Intramuscular Suspe nsion 0.5 ML 15:20:56 RN INTERNSHIP CPT-34623 Immunization Single Admin 15:20:56 RN INTERNSHIP 2014 CPT-90744 Excis pilonidal cyst simple 08:51:34 CDT 20 22/04/20 CPT-35864 Venipuncture Draw Fee 14:27:29 CDT CPT-28388 Postop F/U Visit 15:27:43 CDT CPT-66116 Postop F/U Visit 14:40:59 CDT CPT-32416 Postop F/U Visit 15:02:46 CDT CPT-52107 Postop F/U Visit 11:29:00 RN INTERNSHIP CPT-J0696 Rocephin 1000 mg (Ceftriaxone) 17:22:33 RN INTERNSHIP CPT-26234 Postop F/U Visit 18:41:07 RN INTERNSHIP CPT-83229 Postop F/U Visit 08:19:08 RN INTERNSHIP CPT-70019 Immunization Single Admin 16:41:53 CDT 2013 CPT-49979 Fluzone Quadrivalent Intramuscular Suspe nsion 0.5 ML 16:41:53 CDT CPT-OV Office Visit 16:39:18 CDT CPT-OV Office Visit 16:16:36 CDT CPT-OV Office Visit 15:34:48 CDT CPT-13637 Postop F/U Visit 14:50:12 CDT CPT-89437 Postop F/U Visit 14:41:10 CDT CPT-67664 Venipuncture Draw Fee 11:38:04 RN INTERNSHIP CPT-95700 Postop F/U Visit 19:02:59 RN INTERNSHIP CPT-12853 Postop F/U Visit 12:04:54 RN INTERNSHIP CPT-41286 Administration single or combination vac cine inc oral 15:56:43 CDT CPT-90752 Influenza split virus > age 3 15:56:43 CDT CPT-70497 Hand comp min 3V 14:25:19 CDT CPT-24448 Postop F/U Visit 21:40:51 CDT CPT-63414 Postop F/U Visit 10:58:43 CDT CPT-58639 Administration single or combination vac cine inc oral 12:33:54 RN INTERNSHIP CPT-56325 Influenza Preservative Free split virus >age 3 12:33:54 RN INTERNSHIP CPT-26001 Administration single or combination vac cine inc oral 09:30:51 CDT CPT-18654 Influenza split virus > age 3 09:30:51 CDT CPT-05842 Postop F/U Visit 15:14:53 CDT CPT-79056 Postop F/U Visit 13:50:14 CDT CPT-07950 Postop F/U Visit 13:34:52 CDT CPT-OV Office Visit 16:55:03 CDT CPT-09192 [place] of cervix w bx ECC 13:32:50 CDT 10/19 CPT-J1885 Toradol 60 mg (Ketorolac) 15:31:59 CDT 2011 CPT-J1885 Toradol 60 mg (Ketorolac) 15:23:54 CDT 2011 CPT-98529 Visit 11:34:37 RN INTERNSHIP CPT-60312 Visit 10:52:39 RN INTERNSHIP CPT-09221 Visit 10:12:02 RN INTERNSHIP CPT-43255 Visit 11:22:43 RN INTERNSHIP CPT-87894 Visit 11:24:12 RN INTERNSHIP CPT-72875 Visit 10:47:05 RN INTERNSHIP CPT-OV Office Visit 10:26:16 RN INTERNSHIP CPT-OV Office Visit 15:34:31 RN INTERNSHIP CPT-72419 Visit 10:42:08 RN INTERNSHIP CPT-23212 Visit 10:52:45 RN INTERNSHIP CPT-000 Give Appropriate Flu Vaccine 16:56:41 CDT 2 CPT-97240 Administration single or combination vac cine inc oral 10:33:21 CDT CPT-33731 Influenza split virus > age 3 10:33:21 CDT CPT-76378 Visit 13:23:09 CDT CPT-94192 Visit 18:24:52 CDT CPT-68392 Sono OB comp > 14 weeks 12:07:49 CDT 04/07
--- OUTSIDE RECORDS SUMMARY | 2020-01-18 15:54 | XMS REPORT | Clinical Summary ---
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 Abscess of anal and rectal regions , [...] Generic Name NDC Status Provider Patient Instruction HYDROCODONE-ACETAMINOPHEN 5-325 MG TABS 1 po TID PRN Pain 2014/12/2 3 HYDROCODONE-ACETAMINOPHEN 74931932977 Active Abdirahman Rios MD Active [id number] 50-325-40 MG ORAL CAPS 1-2 po TID MT N Headache JOAVMVDCAD-OLFAYUK-RDEFCTPS 91781041860 Active Abdirahman Rios MD Active AUGMENTIN 875-125 MG TAB 1 tab by mouth twice daily with food 20 21/10/13 AMOXICILLIN-POT CLAVULANATE 52726696468 No Longer Active Ursula Moser APRN Active PERCOCET 10-325 MG ORAL TABS 1 every 4 hours as needed OXYCODONE-ACETAMINOPHEN 52043487328 Active iHra Moser APRN Active PROAIR HFA 108 (90 BASE) MCG/ACT AERS 2 puff q 4-6 hrs PRN 01/24 ALBUTEROL SULFATE 76717422292 No Longer Active Kalpesh Dong MD Active ALPRAZOLAM 0.5 MG TABS 1 po BID PRN Anxiety ALPRA ZOLAM 36215320088 Active Abdirahman Rios MD Active EMLA 2.5-2.5 % EXT CREA apply to skin lesion q 6 hours, prn LIDOCAINE-PRILOCAINE 74843992603 Active Hira Moser APRN Active CYCLOBENZAPRINE HCL 10 MG TABS 1 tablet by mouth three times daily as needed for muscle spasm/pain CYCLOBENZAPRINE HCL 75589783317 Active Abdirahman Rios MD Active PREDNISONE 20 MG TAB 2 tabs daily for 3 days, 1 t ab daily for 3 days, 1/2 tab daily for 2 days PREDNISONE 46436716402 No Longer Active Abdirahman Rios MD Active KEFLEX 500 MG CAP 1 po qid CEPHALEXIN 664119293 20 No Longer Active Kalpesh Dong MD Active PERCOCET 5-325 MG TAB 1 every 6 hours as needed OXYCODONE-ACETAMINOPHEN 38080262694 No Longer Active Shola MCGILL Active LC-5 LIDOCAINE 5 % CREA apply 1 time daily to affected area 2013 LIDOCAINE (ANORECTAL) 40416857585 No Longer Active Hira muniz FACILITIES MAINTENANCE SUPERVISOR Active HYDROCODONE-ACETAMINOPHEN 10-325 MG TABS 1 by mouth ev chaka 8 hours as needed for pain HYDROCODONE-ACETAMINOPHEN 02247796239 No Longer Active Jillina Frazell FACILITIES MAINTENANCE SUPERVISOR Active LORATADINE 10 MG TABS 1 tablet by mouth daily L ORATADINE 00671097359 No Longer Active Jillina Frazell FACILITIES MAINTENANCE SUPERVISOR Active DIFLUCAN 150 MG TAB 1 qODay x 2 doses FLUCONAZO LE 16881058961 No Longer Active Jillina Frazell FACILITIES MAINTENANCE SUPERVISOR Active CYCLOBENZAPRINE HCL 10 MG TABS 1/2 - 1 tab PO tid PRN back p ain, muscle spasm CYCLOBENZAPRINE HCL 42682329796 No Longer Active Karen siri Joyzell FACILITIES MAINTENANCE SUPERVISOR Active AUGMENTIN 875-125 MG TAB 1 tab by mouth twice daily with food 20 22/05/07 AMOXICILLIN-POT CLAVULANATE 78664075743 No Longer Active Loida Rios MD Active MOBIC 15 MG TABS 1 tab daily MELOXICAM 925489104 14 No Longer Active Abdirahman Rios MD Active PERCOCET 7.5-325 MG TABS 1 PO tid PRN pain OXYCODONE-ACETAMINOPHEN 56926067598 No Longer Active Abdirahman Rios MD Active LIDODERM 5 % PTCH One patch to painful area MT N. On for 12 hrs, off for 12 hrs. LIDOCAINE 56064253444 No Longer Active Abdirahman Rios MD Active PERCOCET 7.5-325 MG TABS 1 PO q 8 hrs PRN pain OXYCODONE-ACETAMINOPHEN 15157314221 No Longer Active Shola MCGILL Active HYDROCODONE-ACETAMINOPHEN 7.5-325 MG TABS 1 by mouth e very 6 hours as needed for pain HYDROCODONE-ACETAMINOPHEN 98403728553 No Longer Active Good Julian MD Active CLINDAMYCIN HCL 300 MG CAPS 1 po QID x 7 days CLINDAMYCIN HCL 14027468523 No Longer Active Abdirahman Rios MD Activ e BACTRIM DS 800-160 MG TABS 1 po BID x 7 days 5 SULFAMETHOXAZOLE-TRIMETHOPRIM 15018066637 No Longer Active Abdirahman Rios MD Active ENDOCET 10-325 MG TABS 1 q 6 hr prn OXYCODONE-ACETAMINOPHEN 12856049670 No Longer Active Abdirahman Rios MD Active IBUPROFEN 800 MG TABS 1 tid prn IBUPROFEN 960205 45978 No Longer Active Abdirahman Rios MD Active BACTRIM DS 800-160 MG TABS by mouth twice a day 11/05 SULFAMETHOXAZOLE-TRIMETHOPRIM 39253542027 No Longer Active Good Julian MD Active HYDROCODONE-ACETAMINOPHEN 7.5-325 MG TABS 1 four times a day as needed for pain HYDROCODONE-ACETAMINOPHEN 00941260250 No Longer Activ e Good Julian MD Active KEFLEX 500 MG CAP 1 tab po tid CEPHALEXIN 849002 84120 No Longer Active Hira Moser APRN Active IBUPROFEN 800 MG TAB 1 pill three times daily as needed for pain IBUPROFEN 12677549653 No Longer Active Kalpesh Dong MD Active PROMETHAZINE-CODEINE 6.25-10 MG/5ML SYRP 1 tsp every 6 hrs prn c ough PROMETHAZINE-CODEINE 96777911439 No Longer Active Kalpesh Carr Active HYDROCODONE-ACETAMINOPHEN 5-325 MG TABS 1 tab by mouth every 6 hours as needed HYDROCODONE-ACETAMINOPHEN 68871854749 No Longer Activ e Shola MCGILL Active CEPHALEXIN 500 MG CAPS 1 PO bid x 7 days CEPHAL EXIN 68155260406 No Longer Active Shola MCGILL Active BACTRIM DS 800-160 MG TAB 1 tab by mouth twice daily 2 TRIMETHOPRIM-SULFAMETHOXAZOLE 81765853058 No Longer Active Kalpesh Dong MD Active HYDROCODONE-ACETAMINOPHEN 5-325 MG TABS 1 PO tid PRN pain 5 HYDROCODONE-ACETAMINOPHEN 95279452001 No Longer Active Abhinav Galvan MD Active IMPLANON 68 MG IMPL IMPLANTED IN LEFT ARM ETONO GESTREL 83978366606 No Longer Active Hira Moser APRN Active AMOXICILLIN 500 MG TABS 2 tabs PO bid x 10 d AM OXICILLIN 77799786748 No Longer Active Kalpesh Dong MD Active LEVAQUIN 500 MG TABS 1 PO q day x 7 days LEVOFL OXACIN 91313131353 No Longer Active Shola MCGILL Active AMITRIPTYLINE HCL 25 MG TAB 1 tab by mouth daily 60 minutes before bedtime AMITRIPTYLINE HCL 86594325693 No Longer Active Shola MCGILL Active LORTAB 5 5-500 MG TABS 1/2 to 1 tablet by mouth go ry 6 hours as needed for pain HYDROCODONE-ACETAMINOPHEN 90331948941 No Longer Active Shola MCGILL Active CEPHALEXIN 500 MG TABS Take one by mouth four times daily, morning, noon, early evening and bedtime. CEPHALEXIN 16785262267 No Long er Active Hira Moser APRN Active TYLENOL/CODEINE #3 300-30 MG TAB 1-2 po q6hr PRN Pain ACETAMINOPHEN-CODEINE 04648502723 No Longer Active Edilberto Marino DO Active PRISTIQ 50 MG [id number] 1 po qd DESVENLAFAXI NE SUCCINATE 36455284585 No Longer Active Edilberto Marino DO Active PENICILLIN V POTASSIUM 500 MG TAB 1 four times a day 2 PENICILLIN V POTASSIUM 21568335669 No Longer Active Edilberto Marino DO Active DOXYCYCLINE HYCLATE 100 MG CAPS Take one (1) tablet by mouth twice a day DOXYCYCLINE HYCLATE 97805432355 No Longer Active Ronnie Galvan MD Active HYDROCODONE-ACETAMINOPHEN 5-325 MG TABS 1 po q 6hr PRN Pain 2011 HYDROCODONE-ACETAMINOPHEN 70818022127 No Longer Active Patri joan Perez RN Active BACTRIM DS 800-160 MG TAB 1 tab by mouth twice daily 2 TRIMETHOPRIM-SULFAMETHOXAZOLE 01298395017 No Longer Active Kalpesh Dong MD Active LORTAB 5 5-500 MG TABS 1/2 to 1 tablet by mouth go ry 4 hours as needed for pain HYDROCODONE-ACETAMINOPHEN 54890867491 No Longer Active Kalpesh Dong MD Active GENERESS FE 0.8-25 MG-MCG CHEW Take one by mouth daily NORETHIN-ETH ESTRADIOL-FE 10161988220 No Longer Active Kalpesh Dong MD Active HYDROCODONE-ACETAMINOPHEN 7.5-500 MG TABS 1-2 every 4 hours as needed HYDROCODONE-ACETAMINOPHEN 34317276945 No Longer Activ e Kalpesh Dong MD Active FERROUS SULFATE 325 (65 FE) MG TABS 1 tablet by mouth twice yung y FERROUS SULFATE 68415757500 No Longer Active Kalpesh Dong MD Active IBUPROFEN 600 MG TAB 1 po q6-8hr PRN IBUPROFEN 50287964526 No Longer Active Kalpesh Dong MD Active SPIRONOLACTONE 25 MG TAB 1 tablet by mouth daily 01/22 SPIRONOLACTONE 98673963148 No Longer Active Kalpesh Dong MD Acti ve HYDROCODONE-ACETAMINOPHEN 7.5-325 MG TABS 1 po QID PRN Pain 2011 HYDROCODONE-ACETAMINOPHEN 05610926192 No Longer Active Kalpesh Dong MD Active CLINDAMYCIN HCL 300 MG CAPS 1 po q6hr x 7 days CLINDAMYCIN HCL 16797353956 No Longer Active Edilberto Marino DO Active PREDNISONE 20 MG TAB 2 tabs daily for 4 days, 1 t ab daily for 4 days, 1/2 tab daily for 4 days PREDNISONE 44916295365 No Longer Active Edilberto Marino DO Active PERCOCET 5-325 MG TABS 1 tablet by mouth every 6 hours as ne eded for pain OXYCODONE-ACETAMINOPHEN 49206124080 No Longer Active Abdirahman Rios MD Active VITAMINS TABS Take one by mouth daily MV & MIN W/FE-FA TABS 60248924022 No Longer Active Abdirahman Rios MD Active LUIS 3-0.02 MG TABS 1 tablet by mouth daily as directed DROSPIRENONE-ETHINYL ESTRADIOL 27520451832 No Longer Active Abdirahman Rios MD Active LORATADINE 10 MG TABS 1 tablet by mouth daily L ORATADINE 30868834206 No Longer Active Kalpesh Dong MD Active HYDROCODONE-ACETAMINOPHEN 5-325 MG TABS 1 po q 6hr PRN Pain 2010 HYDROCODONE-ACETAMINOPHEN 56010321336 No Longer Active Edilberto Marino DO Active BACTRIM DS 800-160 MG TAB 1 tab by mouth twice daily 2 TRIMETHOPRIM-SULFAMETHOXAZOLE 96098798477 No Longer Active Abdirahman Rios MD Active 28-0.8 MG TABS Take one by mouth daily 09/20 VIT-FE FUMARATE-FA 39576915049 No Longer Active Abdirahman Rios MD Active CIPRO 500 MG TAB 1 tablet by mouth twice daily CIPROFLOXACIN HCL 46740222103 No Longer Active Abdirahman Rios MD Active BENADRYL 25 MG CAP 1 po q8hr PRN Congestion DIPHENHYDRAMINE HCL 41097043038 No Longer Active Abdirahman Rios MD Active ZOLOFT 50 MG TAB 1 po qd SERTRALINE HCL 424370 54323 No Longer Active Abdirahman Rios MD Active AMOXICILLIN 875 MG TABS 1 tab by mouth twice daily 201 08/09/13 AMOXICILLIN 21952523495 No Longer Active Abdirahman Rios MD Activ e AMOXICILLIN 875 MG TABS 1 tab by mouth twice daily 201 07/19/27 AMOXICILLIN 23926199915 No Longer Active Abdirahman Rios MD Activ e BACTRIM DS 800-160 MG TAB 2 tab by mouth twice daily 2 TRIMETHOPRIM-SULFAMETHOXAZOLE 08835556351 No Longer Active Abdirahman Rios MD Active KEFLEX 500 MG CAP 1 po tid x 10 days CEPHALEXIN 72721555282 No Longer Active Abdirahman Rios MD Active AMOXICILLIN 875 MG TABS 1 tab by mouth twice daily 201 07/18/07 AMOXICILLIN 30147487082 No Longer Active Abdirahman Rios MD Activ e BACTRIM DS 800-160 MG TAB 2 tab by mouth twice daily 2 BACTRIM DS 800-160 MG TAB TRIMETHOPRIM-SULFAMETHOXAZOLE Inactive ZOLOFT 50 MG TAB 1 po qd ZOLOFT 50 MG TAB 3129 41 SERTRALINE HCL Inactive BENADRYL 25 MG CAP 1 po q8hr PRN Congestion BENADRYL 25 MG CAP 3567578 DIPHENHYDRAMINE HCL Inactive 28-0.8 MG TABS Take one by mouth daily 09/20 28-0.8 MG TABS VIT-FE FUMARATE-FA Inactive HYDROCODONE-ACETAMINOPHEN 5-325 MG TABS 1 po q 6hr PRN Pain 2010 HYDROCODONE-ACETAMINOPHEN 5-325 MG TABS 549270 HYDROCODONE-ACETAMINOPHEN Inactive LORATADINE 10 MG TABS 1 tablet by mouth daily LORATADINE 10 MG TABS 455401 LORATADINE Inactive LUIS 3-0.02 MG TABS 1 tablet by mouth daily as directed LUIS 3-0.02 MG TABS DROSPIRENONE-ETHINYL ESTRADIOL Inactive VITAMINS TABS Take one by mouth daily VITAMINS TABS MV & MIN W/FE-FA TABS Inactive PERCOCET 5-325 MG TABS 1 tablet by mouth every 6 hours as ne eded for pain PERCOCET 5-325 MG TABS 4211081 OXYCODONE-ACETAMIN OPHEN Inactive PREDNISONE 20 MG TAB 2 tabs daily for 4 days, 1 t ab daily for 4 days, 1/2 tab daily for 4 days PREDNISONE 20 MG TAB 368386 PREDNISON E Inactive CLINDAMYCIN HCL 300 MG CAPS 1 po q6hr x 7 days CLINDAMYCIN HCL 300 MG CAPS 089991 CLINDAMYCIN HCL Inactive HYDROCODONE-ACETAMINOPHEN 7.5-325 MG TABS 1 po QID PRN Pain 2011 HYDROCODONE-ACETAMINOPHEN 7.5-325 MG TABS 228795 HYDROCODONE-ACETAMINOPHEN Inactive SPIRONOLACTONE 25 MG TAB 1 tablet by mouth daily 01/22 SPIRONOLACTONE 25 MG TAB 316991 SPIRONOLACTONE Inactive IBUPROFEN 600 MG TAB 1 po q6-8hr PRN IBUPROFEN 600 MG TAB 206128 IBUPROFEN Inactive FERROUS SULFATE 325 (65 FE) MG TABS 1 tablet by mouth twice yung y FERROUS SULFATE 325 (65 FE) MG TABS 784552 FERROUS SULF ATE Inactive HYDROCODONE-ACETAMINOPHEN 7.5-500 MG [...] PRN Pain 2011 HYDROCODONE-ACETAMINOPHEN 5-325 MG TABS 204822 HYDROCODONE-ACETAMINOPHEN Inactive DOXYCYCLINE HYCLATE 100 MG CAPS Take one (1) tablet by mouth twice a day DOXYCYCLINE HYCLATE 100 MG CAPS 658815 DOXYCYCLINE HYCLATE Inactive PENICILLIN V POTASSIUM 500 MG TAB 1 four times a day 2 PENICILLIN V POTASSIUM 500 MG TAB 191081 PENICILLIN V POTASSIUM Siri ctive PRISTIQ 50 MG [id number] 1 po qd PRISTIQ 50 MG [id number] DESVENLAFAXINE SUCCINATE Inactive TYLENOL/CODEINE #3 300-30 MG TAB 1-2 po q6hr PRN Pain TYLENOL/CODEINE #3 300-30 MG TAB 754206 ACETAMINOPHEN-CODEINE Inact krishna CEPHALEXIN 500 MG TABS Take one by mouth four times daily, morning, noon, early evening and bedtime. CEPHALEXIN 500 MG TABS 331648 CEPHALEXIN Inactive LORTAB 5 5-500 MG TABS 1/2 to 1 tablet by mouth go ry 6 hours as needed for pain LORTAB 5 5-500 MG TABS HYDROCODONE-A CETAMINOPHEN Inactive AMITRIPTYLINE HCL 25 MG TAB 1 tab by mouth daily 60 minutes before bedtime AMITRIPTYLINE HCL 25 MG TAB 685584 AMITRIPTYLINE HCL Inactive AMOXICILLIN 500 MG TABS 2 tabs PO bid x 10 d 7 AMOXICILLIN 500 MG TABS 559242 AMOXICILLIN Inactive IMPLANON 68 MG IMPL IMPLANTED IN LEFT ARM IMPLANON 68 MG IMPL ETONOGESTREL Inactive HYDROCODONE-ACETAMINOPHEN 5-325 MG TABS 1 PO tid PRN pain 5 HYDROCODONE-ACETAMINOPHEN 5-325 MG TABS 555943 HYDROCODONE-ACETAMIN OPHEN Inactive BACTRIM DS 800-160 MG TAB 1 tab by mouth twice daily 2 BACTRIM DS 800-160 MG TAB TRIMETHOPRIM-SULFAMETHOXAZOLE Inac tive CEPHALEXIN 500 MG CAPS 1 PO bid x 7 days CEPHALEXIN 500 MG CAPS 966456 CEPHALEXIN Inactive HYDROCODONE-ACETAMINOPHEN 5-325 MG TABS 1 tab by mouth every 6 hours as needed HYDROCODONE-ACETAMINOPHEN 5-325 MG TABS 639994 HYDROCODONE-ACETAMINOPHEN Inactive PROMETHAZINE-CODEINE 6.25-10 MG/5ML SYRP 1 tsp every 6 hrs prn c ough PROMETHAZINE-CODEINE 6.25-10 MG/5ML SYRP 487722 PROMETH AZINE-CODEINE Inactive IBUPROFEN 800 MG TAB 1 pill three times daily as needed for pain IBUPROFEN 800 MG TAB 928895 IBUPROFEN Inactive KEFLEX 500 MG CAP 1 tab po tid KEFLEX 500 MG CAP 367108 CEPHALEXIN Inactive HYDROCODONE-ACETAMINOPHEN 7.5-325 MG TABS 1 four times a day as needed for pain HYDROCODONE-ACETAMINOPHEN 7.5-325 MG TABS 782585 HYDROCODONE-ACETAMINOPHEN Inactive BACTRIM DS 800-160 MG TABS by mouth twice a day 11/05 BACTRIM DS 800-160 MG TABS SULFAMETHOXAZOLE-TRIMETHOPRIM Inactive IBUPROFEN 800 MG TABS 1 tid prn IBUPROFEN 800 MG TABS 042760 IBUPROFEN Inactive ENDOCET 10-325 MG TABS 1 q 6 hr prn ENDOC ET 10-325 MG TABS 3952409 OXYCODONE-ACETAMINOPHEN Inactive HYDROCODONE-ACETAMINOPHEN 7.5-325 MG TABS 1 by mouth e very 6 hours as needed for pain HYDROCODONE-ACETAMINOPHEN 7.5-325 MG TABS 825853 HYDROCODONE-ACETAMINOPHEN Inactive PERCOCET 7.5-325 MG TABS 1 PO q 8 hrs PRN pain PERCOCET 7.5-325 MG TABS 0170898 OXYCODONE-ACETAMINOPHEN Inactive LIDODERM 5 % PTCH One patch to painful area MT N. On for 12 hrs, off for 12 hrs. LIDODERM 5 % PTCH 7484947 LIDOCAINE Inactiv e PERCOCET 7.5-325 MG TABS 1 PO tid PRN pain PERCOCET 7.5- 325 MG TABS 0216132 OXYCODONE-ACETAMINOPHEN Inactive MOBIC 15 MG TABS 1 tab daily MOBIC 15 MG TABS 15 2695 MELOXICAM Inactive CYCLOBENZAPRINE HCL 10 MG TABS 1/2 - 1 tab PO tid PRN back p ain, muscle spasm CYCLOBENZAPRINE HCL 10 MG TABS 187798 CYCLOBENZA JOSEPH HCL Inactive LORATADINE 10 MG TABS 1 tablet by mouth daily LORATADINE 10 MG TABS 776157 LORATADINE Inactive HYDROCODONE-ACETAMINOPHEN 10-325 MG TABS 1 by mouth ev chaka 8 hours as needed for pain HYDROCODONE-ACETAMINOPHEN 10-325 MG TABS 910349 HYDROCODONE-ACETAMINOPHEN Inactive LC-5 LIDOCAINE 5 % CREA apply 1 time daily to affected area 2013 LC-5 LIDOCAINE 5 % CREA LIDOCAINE (ANORECTAL) In active PERCOCET 5-325 MG TAB 1 every 6 hours as needed PERCOCET 5-325 MG TAB 4163023 OXYCODONE-ACETAMINOPHEN Inactive KEFLEX 500 MG CAP 1 po qid KEFLEX 500 MG CAP 30 9114 CEPHALEXIN Inactive PROAIR HFA 108 (90 BASE) MCG/ACT AERS 2 puff q 4-6 hrs PRN 01/24 PROAIR HFA 108 (90 BASE) MCG/ACT AERS ALBUTEROL SULFATE Inactive AMOXICILLIN 875 MG TABS 1 tab by mouth twice daily 201 07/18/07 AMOXICILLIN 875 MG TABS 101047 AMOXICILLIN Inactive KEFLEX 500 MG CAP 1 po tid x 10 days KEFLEX 500 MG CAP 761837 CEPHALEXIN Inactive AMOXICILLIN 875 MG TABS 1 tab by mouth twice daily 201 07/19/27 AMOXICILLIN 875 MG TABS 316004 AMOXICILLIN Inactive AMOXICILLIN 875 MG TABS 1 tab by mouth twice daily 201 08/09/13 AMOXICILLIN 875 MG TABS 804204 AMOXICILLIN Inactive CIPRO 500 MG TAB 1 tablet by mouth twice daily CIPRO 500 MG TAB 976105 CIPROFLOXACIN HCL Inactive BACTRIM DS 800-160 MG TAB 1 tab by mouth twice daily 2 BACTRIM DS 800-160 MG TAB TRIMETHOPRIM-SULFAMETHOXAZOLE Inac tive LEVAQUIN 500 MG TABS 1 PO q day x 7 days LEVAQUIN 500 MG TABS 433295 LEVOFLOXACIN Inactive CLINDAMYCIN HCL 300 MG CAPS 1 po QID x 7 days CLINDAMYCIN HCL 300 MG CAPS 707099 CLINDAMYCIN HCL Inactive AUGMENTIN 875-125 MG TAB 1 tab by mouth twice daily with food 20 22/05/07 AUGMENTIN 875-125 MG TAB 558196 AMOXICILLIN-POT CLAVULA [place] Inactive DIFLUCAN 150 MG TAB 1 qODay x 2 doses DIFLUCAN 150 MG TAB 646158 FLUCONAZOLE Inactive PREDNISONE 20 MG TAB 2 tabs daily for 3 days, 1 t ab daily for 3 days, 1/2 tab daily for 2 days PREDNISONE 20 MG TAB 588413 PREDNISON E Inactive AUGMENTIN 875-125 MG TAB 1 tab by mouth twice daily with food 20 21/10/13 AUGMENTIN 875-125 MG TAB 823395 AMOXICILLIN-POT CLAVULA [place] Inactive Advance Directives Directive Description Start Date PERMISSION TO SHARE Immunizations Vaccine Administration Date Value Standard Alf cription Seasonal influenza vaccine, injectable, containing preservative, for > 3 years old (Afluria, FluLaval, Fluzone, Fluvirin, Fluarix, Agriflu(>= 18 yo)) Fluzone (>3 yrs.) [QPL905] Influenza, seasonal, inject able Seasonal influenza vaccine, injectable, preservative free, for > 3 years old (Afluria, FluLaval, Fluzone, Fluvirin, Fluarix, Agriflu(>= 18 yo)) Fluzone preservative free (>3 yrs.) [[id number]] Influenza, seasonal, injectable, preservative free Seasonal influenza vaccine, injectable, containing preservative, for > 3 years old (Afluria, FluLaval, Fluzone, Fluvirin, Fluarix, Agriflu(>= 18 yo)) Fluzone (>3 yrs.) [[id number]] Influenza, seasonal, inject able Seasonal influenza vaccine, injectable, containing preservative, for > 3 years old (Afluria, FluLaval, Fluzone, Fluvirin, Fluarix, Agriflu(>= 18 yo)) Fluzone (>3 yrs.) [[id number]] Influenza, seasonal, inject able dT (Diphtheria and [...] Panel - Chemistry sodium, serum 142 mmol/L 956-761 7023/05/12 potassium, serum 4.8 mmol/L 3.5-5.2 chloride, serum [...] Panel - Chemistry cholesterol, serum 165 mg/dL 386-825 4395/05/12 triglyceride, serum, fasting 524 mg/dL 30-200 HDL [...] negative Encounters Code Encounter Date Provider Facility CPT-57289 Level 2 Est. Patient 07:49:32 CDT Kalpesh goins MD [facility] CPT-52888 Level 3 New Patient 15:47:11 SEO CONSULTANT Bj huber MD [facility] CPT-66180 Level 4 Est. Patient 14:37:38 SEO CONSULTANT Abdirahman Rios MD [facility] CPT-54707 Level 2 Est. Patient 13:32:17 SEO CONSULTANT Kalpesh goins MD [facility] CPT-75876 Level 3 Est. Patient 17:32:57 SEO CONSULTANT Edilberto tiwari DO [facility] CPT-91267 Level 3 Est. Patient 17:22:33 SEO CONSULTANT Edilberto tiwari DO [facility] CPT-07059 Level 2 Est. Patient 16:57:09 SEO CONSULTANT Kalpesh goins MD [facility] CPT-37998 Level 3 Est. Patient 14:03:08 SEO CONSULTANT Abdirahman Rios MD [facility] CPT-19724 Level 3 Est. Patient 18:12:34 CDT Shola Wright [facility] CPT-14310 Level 3 Est. Patient 19:34:46 CDT Shola Wright [facility] CPT-07436 Level 3 Est. Patient 14:19:37 CDT Abdirahman Rios MD [facility] CPT-02052 Level 3 Est. Patient 14:11:58 CDT Kalpesh goins MD [facility]-98654 Level 3 Est. Patient 16:50:00 [facility] Level 3 Est. Patient 17:11:32 SEO CONSULTANT Brandie bates MD, PhD [facility] CPT-64045 Level 3 Est. Patient 16:31:47 SEO CONSULTANT Shola Wright [facility] CPT-09571 Level 3 Est. Patient 17:51:10 SEO CONSULTANT Abhinav Galvan MD [facility] CPT-03206 Level 4 Est. Patient 12:54:56 SEO CONSULTANT Kalpesh goins MD [facility]-06827 Level 4 Est. Patient 12:53:56 SEO CONSULTANT Kalpesh goins MD [facility] CPT-16650 Level 3 Est. Patient 17:56:58 CDT Shola Wright [facility] CPT-31873 Level 3 Est. Patient 14:26:20 CDT Janak butcher [facility] CPT-17490 Level 3 Est. Patient 09:38:41 CDT Shola MCGILL [facility] CPT-18010 Level 3 Est. Patient 14:45:26 CDT dEilberto tiwari [facility] CPT-04516 Level 3 Est. Patient 10:51:33 [facility] Est[facility] Patient 11:57:55 SEO CONSULTANT Shola Wright [facility] CPT-55071 Level 3 Est. Patient 09:53:33 SEO CONSULTANT Edilberto tiwari [facility] CPT-75209 Level 3 Est. Patient 14:42:54 SEO CONSULTANT Abhinav Galvan MD [facility]-87805 Level 3 Est. Patient 15:10:02 CDT Janak Stevenamira guadalupe [facility] CPT-54932 Level 3 Est. Patient 15:20:20 CDT Theo dennis MD [facility] CPT-65314 Level 2 Est. Patient 14:08:57 CDT Kalpesh goins MD [facility] CPT-72680 Level 3 Est. Patient 13:56:19 CDT Abdirahman Rios MD [facility] CPT-57513 Level 3 Est. Patient 13:59:37 CDT Abdirahman Rios MD [facility] CPT-83932 Level 2 Est. Patient 14:44:59 CDT Kalpesh goins MD [facility]-13128 Level 3 Est. Patient 06:06:23 CDT Edilberto tiwari [facility] CPT-28086 Level 3 Est. Patient 15:23:54 CDT Abdirahman Rios MD [facility] CPT-97665 Level 3 Est. Patient 15:43:49 CDT Abdirahman Rios MD [facility] CPT-18137 Level 3 Est. Patient 12:46:47 SEO CONSULTANT Abdirahman Rios MD [facility] CPT-78041 Level 3 Est. Patient 08:13:35 SEO CONSULTANT Abdirahman Rios MD [facility] CPT-36241 Level 2 Est. Patient 09:36:42 SEO CONSULTANT Abdirahman Rios MD [facility] CPT-20456 Level 3 Est. Patient 10:56:43 CDT Abdirahman Rios MD [facility] CPT-88639 Level 3 Est. Patient 18:24:52 CDT Abdirahman Rios MD [facility] CPT-62788 Level 3 Est. Patient 13:27:22 CDT Abdirahman Rios MD [facility] Procedures Code Procedure Name Date Entry Date Standard Desc ription CPT-31321 Postop F/U Visit 14:40:59 CDT CPT-28415 Postop F/U Visit 15:02:46 CDT CPT-99215 Postop F/U Visit 11:29:00 SEO CONSULTANT CPT-J0696 Rocephin 1000 mg (Ceftriaxone) 17:22:33 SEO CONSULTANT CPT-87462 Postop F/U Visit 18:41:07 SEO CONSULTANT CPT-84849 Postop F/U Visit 08:19:08 SEO CONSULTANT CPT-11206 Immunization Single Admin 16:41:53 CDT 2013 CPT-15387 Fluzone Quadrivalent Intramuscular Suspe nsion 0.5 ML 16:41:53 CDT CPT-OV Office Visit 16:39:18 CDT CPT-OV Office Visit 16:16:36 CDT CPT-OV Office Visit 15:34:48 CDT CPT-48638 Postop F/U Visit 14:50:12 CDT CPT-56123 Postop F/U Visit 14:41:10 CDT CPT-25023 Venipuncture Draw Fee 11:38:04 [employer] CPT-49606 Postop F/U Visit 19:02:59 [employer] CPT-55624 Postop F/U Visit 12:04:54 [employer] CPT-89158 Administration single or combination vac cine inc oral 15:56:43 CDT CPT-54004 Influenza split virus > age 3 15:56:43 CDT CPT-48720 Hand comp min 3V 14:25:19 CDT CPT-43734 Postop F/U Visit 21:40:51 CDT CPT-38391 Postop F/U Visit 10:58:43 CDT CPT-00914 Administration single or combination vac cine inc oral 12:33:54 [employer] CPT-92455 Influenza Preservative Free split virus >age 3 12:33:54 [employer] CPT-33012 Administration single or combination vac cine inc oral 09:30:51 CDT CPT-20579 Influenza split virus > age 3 09:30:51 CDT CPT-60672 Postop F/U Visit 15:14:53 CDT CPT-72050 Postop F/U Visit 13:50:14 CDT CPT-00179 Postop F/U Visit 13:34:52 CDT CPT-OV Office Visit 16:55:03 CDT CPT-17225 [place] of cervix w bx ECC 13:32:50 CDT 10/19 CPT-J1885 Toradol 60 mg (Ketorolac) 15:31:59 CDT 2011 CPT-J1885 Toradol 60 mg (Ketorolac) 15:23:54 CDT 2011 CPT-14555 Visit 11:34:37 SEO CONSULTANT CPT-82646 Visit 10:52:39 SEO CONSULTANT CPT-57842 Visit 10:12:02 SEO CONSULTANT CPT-71440 Visit 11:22:43 SEO CONSULTANT CPT-32050 Visit 11:24:12 SEO CONSULTANT CPT-45812 Visit 10:47:05 SEO CONSULTANT CPT-OV Office Visit 10:26:16 SEO CONSULTANT CPT-OV Office Visit 15:34:31 SEO CONSULTANT CPT-36258 Visit 10:42:08 SEO CONSULTANT CPT-47831 Visit 10:52:45 SEO CONSULTANT CPT-000 Give Appropriate Flu Vaccine 16:56:41 CDT 2 CPT-78984 Administration single or combination vac cine inc oral 10:33:21 CDT CPT-43168 Influenza split virus > age 3 10:33:21 CDT CPT-11656 Visit 13:23:09 CDT CPT-07577 Visit 18:24:52 CDT CPT-00637 Sono OB comp > 14 weeks 12:07:49 CDT 04/07
--- OUTSIDE RECORDS SUMMARY | 2020-01-18 15:55 | XMS REPORT | Clinical Summary ---
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 Abscess of anal and rectal regions [...] 1 po qHS PRN Insomnia TRAZODONE HCL 00180961410 Active Abdirahman Rios MD Active CYMBALTA 30 MG CPEP 1 cap by mouth daily DULOXE CLEO HCL 95358322396 Active Abdirahman Rios MD Active EMLA 2.5-2.5 % EXT CREA apply to skin lesion q 6 hours, prn 2014 LIDOCAINE-PRILOCAINE 38128823771 No Longer Active Abdirahman Rios MD Active HYDROCODONE-ACETAMINOPHEN 5-325 MG TABS 1 po q6hr PRN pain HYDROCODONE-ACETAMINOPHEN 23132135596 Active Abdirahman Rios MD Active PERCOCET 10-325 MG ORAL TABS 1 every 4 hours as needed OXYCODONE-ACETAMINOPHEN 12988224183 No Longer Active Abdirahman Rios MD Active [id number] 50-325-40 MG ORAL CAPS 1-2 po TID TX N Headache [id number] 36949539673 Active Abdirahman Rios MD Active AUGMENTIN 875-125 MG TAB 1 tab by mouth twice daily with food 21/10/13 AMOXICILLIN-POT CLAVULANATE 05782655074 No Longer Active Ursula jasmina Frazell [employer] TECHNICIAN Active PROAIR HFA 108 (90 BASE) MCG/ACT AERS 2 puff q 4-6 hrs PRN 01/24 ALBUTEROL SULFATE 23076806157 No Longer Active Kalpesh Dong MD Active ALPRAZOLAM 0.5 MG TABS 1 po BID PRN Anxiety ALPRA ZOLAM 68737503050 Active Abdirahman Rios MD Active CYCLOBENZAPRINE HCL 10 MG TABS 1 tablet by mouth three times daily as needed for muscle spasm/pain CYCLOBENZAPRINE HCL 06319024030 Active Abdirahman Rios MD Active PREDNISONE 20 MG TAB 2 tabs daily for 3 days, 1 t ab daily for 3 days, 1/2 tab daily for 2 days PREDNISONE 09871682051 No Longer Active Abdirahman Rios MD Active KEFLEX 500 MG CAP 1 po qid CEPHALEXIN 348150492 20 No Longer Active Kalpesh Dong MD Active PERCOCET 5-325 MG TAB 1 every 6 hours as needed OXYCODONE-ACETAMINOPHEN 29711862549 No Longer Active Shola MCGILL Active LC-5 LIDOCAINE 5 % CREA apply 1 time daily to affected area 2013 LIDOCAINE (ANORECTAL) 59938160270 No Longer Active Hira garciaell [employer] TECHNICIAN Active HYDROCODONE-ACETAMINOPHEN 10-325 MG TABS 1 by mouth ev chaka 8 hours as needed for pain HYDROCODONE-ACETAMINOPHEN 32155904667 No Longer Active Jillina Frazell [employer] TECHNICIAN Active LORATADINE 10 MG TABS 1 tablet by mouth daily L ORATADINE 99068935012 No Longer Active Jillina Frazell [employer] TECHNICIAN Active DIFLUCAN 150 MG TAB 1 qODay x 2 doses FLUCONAZO LE 97739128604 No Longer Active Jillina Frazell [employer] L[employer] TECHNICIAN Active CYCLOBENZAPRINE HCL 10 MG TABS 1/2 - 1 tab PO tid PRN back p ain, muscle spasm CYCLOBENZAPRINE HCL 90298389700 No Longer Active Karen siri Frazell [employer] TECHNICIAN Active AUGMENTIN 875-125 MG TAB 1 tab by mouth twice daily with food 20 22/05/07 AMOXICILLIN-POT CLAVULANATE 98725148583 No Longer Active Loida Rios MD Active MOBIC 15 MG TABS 1 tab daily MELOXICAM 980559789 14 No Longer Active Abdirahman Rios MD Active PERCOCET 7.5-325 MG TABS 1 PO tid PRN pain OXYCODONE-ACETAMINOPHEN 71137828678 No Longer Active Abdirahman Rios MD Active LIDODERM 5 % PTCH One patch to painful area [place] N. On for 12 hrs, off for 12 hrs. LIDOCAINE 59844564327 No Longer Active Abdirahman Rios MD Active PERCOCET 7.5-325 MG TABS 1 PO q 8 hrs PRN pain OXYCODONE-ACETAMINOPHEN 77250688743 No Longer Active Shola MCGILL Active HYDROCODONE-ACETAMINOPHEN 7.5-325 MG TABS 1 by mouth e very 6 hours as needed for pain HYDROCODONE-ACETAMINOPHEN 85154503330 No Longer Active Good Julian MD Active CLINDAMYCIN HCL 300 MG CAPS 1 po QID x 7 days CLINDAMYCIN HCL 09049742643 No Longer Active Abdirahman Rios MD Activ e BACTRIM DS 800-160 MG TABS 1 po BID x 7 days 5 SULFAMETHOXAZOLE-TRIMETHOPRIM 69657568287 No Longer Active Abdirahman Rios MD Active ENDOCET 10-325 MG TABS 1 q 6 hr prn OXYCODONE-ACETAMINOPHEN 79274808940 No Longer Active Abdirahman Rios MD Active IBUPROFEN 800 MG TABS 1 tid prn IBUPROFEN 510951 66204 No Longer Active Abdirahman Rios MD Active BACTRIM DS 800-160 MG TABS by mouth twice a day 11/05 SULFAMETHOXAZOLE-TRIMETHOPRIM 50333225695 No Longer Active Good Julian MD Active HYDROCODONE-ACETAMINOPHEN 7.5-325 MG TABS 1 four times a day as needed for pain HYDROCODONE-ACETAMINOPHEN 72002463742 No Longer Activ e Good Julian MD Active KEFLEX 500 MG CAP 1 tab po tid CEPHALEXIN 656720 07416 No Longer Active Hira Moser APRN Active IBUPROFEN 800 MG TAB 1 pill three times daily as needed for pain IBUPROFEN 68996795327 No Longer Active Kalpesh Dong MD Active PROMETHAZINE-CODEINE 6.25-10 MG/5ML SYRP 1 tsp every 6 hrs prn c ough PROMETHAZINE-CODEINE 47610832617 No Longer Active Kalpesh Carr Active HYDROCODONE-ACETAMINOPHEN 5-325 MG TABS 1 tab by mouth every 6 hours as needed HYDROCODONE-ACETAMINOPHEN 67657629448 No Longer Activ e Shola MCGILL Active CEPHALEXIN 500 MG CAPS 1 PO bid x 7 days CEPHAL EXIN 22352428220 No Longer Active Shola MCGILL Active BACTRIM DS 800-160 MG TAB 1 tab by mouth twice daily 2 TRIMETHOPRIM-SULFAMETHOXAZOLE 57043157593 No Longer Active Kalpesh Dong MD Active HYDROCODONE-ACETAMINOPHEN 5-325 MG TABS 1 PO tid PRN pain 5 HYDROCODONE-ACETAMINOPHEN 68350540663 No Longer Active Abhinav Galvan MD Active IMPLANON 68 MG IMPL IMPLANTED IN LEFT ARM ETONO GESTREL 62974210637 No Longer Active Hira Moser APRN Active AMOXICILLIN 500 MG TABS 2 tabs PO bid x 10 d AM OXICILLIN 87132098493 No Longer Active Kalpesh Dong MD Active LEVAQUIN 500 MG TABS 1 PO q day x 7 days LEVOFL OXACIN 26064846996 No Longer Active Shola MCGILL Active AMITRIPTYLINE HCL 25 MG TAB 1 tab by mouth daily 60 minutes before bedtime AMITRIPTYLINE HCL 08731175571 No Longer Active Shola MCGILL Active LORTAB 5 5-500 MG TABS 1/2 to 1 tablet by mouth go ry 6 hours as needed for pain HYDROCODONE-ACETAMINOPHEN 49001626792 No Longer Active Shola MCGILL Active CEPHALEXIN 500 MG TABS Take one by mouth four times daily, morning, noon, early evening and bedtime. CEPHALEXIN 27393024392 No Long er Active Hira Moser APRN Active TYLENOL/CODEINE #3 300-30 MG TAB 1-2 po q6hr PRN Pain ACETAMINOPHEN-CODEINE 05504215555 No Longer Active Edilberto Marino DO Active PRISTIQ 50 MG FR09I-EGE 1 po qd DESVENLAFAXI NE SUCCINATE 98167544015 No Longer Active Edilberto Marino DO Active PENICILLIN V POTASSIUM 500 MG TAB 1 four times a day 2 PENICILLIN V POTASSIUM 70597203688 No Longer Active Edilberto Marino DO Active DOXYCYCLINE HYCLATE 100 MG CAPS Take one (1) tablet by mouth twice a day DOXYCYCLINE HYCLATE 83452072027 No Longer Active Ronnie Galvan MD Active HYDROCODONE-ACETAMINOPHEN 5-325 MG TABS 1 po q 6hr PRN Pain 2011 HYDROCODONE-ACETAMINOPHEN 24615140174 No Longer Active Patamber Perez RN Active BACTRIM DS 800-160 MG TAB 1 tab by mouth twice daily 2 TRIMETHOPRIM-SULFAMETHOXAZOLE 87225582122 No Longer Active Kalpesh Dong MD Active LORTAB 5 5-500 MG TABS 1/2 to 1 tablet by mouth go ry 4 hours as needed for pain HYDROCODONE-ACETAMINOPHEN 44305642604 No Longer Active Kalpesh Dong MD Active GENERESS FE 0.8-25 MG-MCG CHEW Take one by mouth daily NORETHIN-ETH ESTRADIOL-FE 96744290058 No Longer Active Kalpesh Dong MD Active HYDROCODONE-ACETAMINOPHEN 7.5-500 MG TABS 1-2 every 4 hours as needed HYDROCODONE-ACETAMINOPHEN 77995153005 No Longer Activ e Kalpesh Dong MD Active FERROUS SULFATE 325 (65 FE) MG TABS 1 tablet by mouth twice yung y FERROUS SULFATE 26589244252 No Longer Active Kalpesh Dong MD Active IBUPROFEN 600 MG TAB 1 po q6-8hr PRN IBUPROFEN 67918522907 No Longer Active Kalpesh Dong MD Active SPIRONOLACTONE 25 MG TAB 1 tablet by mouth daily 01/22 SPIRONOLACTONE 03329653649 No Longer Active Kalpesh Dong MD Acti ve HYDROCODONE-ACETAMINOPHEN 7.5-325 MG TABS 1 po QID PRN Pain 2011 HYDROCODONE-ACETAMINOPHEN 97192902716 No Longer Active Kalpesh Dong MD Active CLINDAMYCIN HCL 300 MG CAPS 1 po q6hr x 7 days CLINDAMYCIN HCL 62625841582 No Longer Active Edilberto Marino DO Active PREDNISONE 20 MG TAB 2 tabs daily for 4 days, 1 t ab daily for 4 days, 1/2 tab daily for 4 days PREDNISONE 68488529716 No Longer Active Edilberto Marino DO Active PERCOCET 5-325 MG TABS 1 tablet by mouth every 6 hours as ne eded for pain OXYCODONE-ACETAMINOPHEN 27083601651 No Longer Active Abdirahman Rios MD Active VITAMINS TABS Take one by mouth daily MV & MIN W/FE-FA TABS 56156473161 No Longer Active Abdirahman Rios MD Active LUIS 3-0.02 MG TABS 1 tablet by mouth daily as directed DROSPIRENONE-ETHINYL ESTRADIOL 21854902264 No Longer Active Abdirahman Rios MD Active LORATADINE 10 MG TABS 1 tablet by mouth daily L ORATADINE 97437578389 No Longer Active Kalpesh Dong MD Active HYDROCODONE-ACETAMINOPHEN 5-325 MG TABS 1 po q 6hr PRN Pain 2010 HYDROCODONE-ACETAMINOPHEN 24637908471 No Longer Active Edilberto Marino DO Active BACTRIM DS 800-160 MG TAB 1 tab by mouth twice daily 2 TRIMETHOPRIM-SULFAMETHOXAZOLE 39267149321 No Longer Active Abdirahman Rios MD Active 28-0.8 MG TABS Take one by mouth daily 09/20 VIT-FE FUMARATE-FA 28027453329 No Longer Active Abdirahman Rios MD Active CIPRO 500 MG TAB 1 tablet by mouth twice daily CIPROFLOXACIN HCL 66315670909 No Longer Active Abdirahman Rios MD Active BENADRYL 25 MG CAP 1 po q8hr PRN Congestion DIPHENHYDRAMINE HCL 75129778118 No Longer Active Abdirahman Rios MD Active ZOLOFT 50 MG TAB 1 po qd SERTRALINE HCL 861780 10938 No Longer Active Abdirahman Rios MD Active AMOXICILLIN 875 MG TABS 1 tab by mouth twice daily 201 08/09/13 AMOXICILLIN 64395703115 No Longer Active Abdirahman Rios MD Activ e AMOXICILLIN 875 MG TABS 1 tab by mouth twice daily 201 07/19/27 AMOXICILLIN 73980762562 No Longer Active Abdirahman Rios MD Activ e BACTRIM DS 800-160 MG TAB 2 tab by mouth twice daily 2 TRIMETHOPRIM-SULFAMETHOXAZOLE 31399626204 No Longer Active Abdirahman Rios MD Active KEFLEX 500 MG CAP 1 po tid x 10 days CEPHALEXIN 61051412868 No Longer Active Abdirahman Rios MD Active AMOXICILLIN 875 MG TABS 1 tab by mouth twice daily 201 07/18/07 AMOXICILLIN 08283990942 No Longer Active Abdirahman Rios MD Activ e BACTRIM DS 800-160 MG TAB 2 tab by mouth twice daily 2 BACTRIM DS 800-160 MG TAB TRIMETHOPRIM-SULFAMETHOXAZOLE Inactive ZOLOFT 50 MG TAB 1 po qd ZOLOFT 50 MG TAB 3129 41 SERTRALINE HCL Inactive BENADRYL 25 MG CAP 1 po q8hr PRN Congestion BENADRYL 25 MG CAP 6802358 DIPHENHYDRAMINE HCL Inactive 28-0.8 MG TABS Take one by mouth daily 09/20 28-0.8 MG TABS VIT-FE FUMARATE-FA Inactive HYDROCODONE-ACETAMINOPHEN 5-325 MG TABS 1 po q 6hr PRN Pain 2010 HYDROCODONE-ACETAMINOPHEN 5-325 MG TABS 761028 HYDROCODONE-ACETAMINOPHEN Inactive LORATADINE 10 MG TABS 1 tablet by mouth daily LORATADINE 10 MG TABS 212035 LORATADINE Inactive LUIS 3-0.02 MG TABS 1 tablet by mouth daily as directed LUIS 3-0.02 MG TABS DROSPIRENONE-ETHINYL ESTRADIOL Inactive VITAMINS TABS Take one by mouth daily VITAMINS TABS MV & MIN W/FE-FA TABS Inactive PERCOCET 5-325 MG TABS 1 tablet by mouth every 6 hours as ne eded for pain PERCOCET 5-325 MG TABS 4943652 OXYCODONE-ACETAMIN OPHEN Inactive PREDNISONE 20 MG TAB 2 tabs daily for 4 days, 1 t ab daily for 4 days, 1/2 tab daily for 4 days PREDNISONE 20 MG TAB 021631 PREDNISON E Inactive CLINDAMYCIN HCL 300 MG CAPS 1 po q6hr x 7 days CLINDAMYCIN HCL 300 MG CAPS 358256 CLINDAMYCIN HCL Inactive HYDROCODONE-ACETAMINOPHEN 7.5-325 MG TABS 1 po QID PRN Pain 2011 HYDROCODONE-ACETAMINOPHEN 7.5-325 MG TABS 489007 HYDROCODONE-ACETAMINOPHEN Inactive SPIRONOLACTONE 25 MG TAB 1 tablet by mouth daily 01/22 SPIRONOLACTONE 25 MG TAB 322904 SPIRONOLACTONE Inactive IBUPROFEN 600 MG TAB 1 po q6-8hr PRN IBUPROFEN 600 MG TAB 534713 IBUPROFEN Inactive FERROUS SULFATE 325 (65 FE) MG TABS 1 tablet by mouth twice yung y FERROUS SULFATE 325 (65 FE) MG TABS 777839 FERROUS SULF ATE Inactive HYDROCODONE-ACETAMINOPHEN 7.5-500 MG [...] PRN Pain 2011 HYDROCODONE-ACETAMINOPHEN 5-325 MG TABS 976298 HYDROCODONE-ACETAMINOPHEN Inactive DOXYCYCLINE HYCLATE 100 MG CAPS Take one (1) tablet by mouth twice a day DOXYCYCLINE HYCLATE 100 MG CAPS 655714 DOXYCYCLINE HYCLATE Inactive PENICILLIN V POTASSIUM 500 MG TAB 1 four times a day 2 PENICILLIN V POTASSIUM 500 MG TAB 262951 PENICILLIN V POTASSIUM Siri ctive PRISTIQ 50 MG [id number] 1 po qd PRISTIQ 50 MG [id number] DESVENLAFAXINE SUCCINATE Inactive TYLENOL/CODEINE #3 300-30 MG TAB 1-2 po q6hr PRN Pain TYLENOL/CODEINE #3 300-30 MG TAB 825608 ACETAMINOPHEN-CODEINE Inact krishna CEPHALEXIN 500 MG TABS Take one by mouth four times daily, morning, noon, early evening and bedtime. CEPHALEXIN 500 MG TABS 333492 CEPHALEXIN Inactive LORTAB 5 5-500 MG TABS 1/2 to 1 tablet by mouth go ry 6 hours as needed for pain LORTAB 5 5-500 MG TABS HYDROCODONE-A CETAMINOPHEN Inactive AMITRIPTYLINE HCL 25 MG TAB 1 tab by mouth daily 60 minutes before bedtime AMITRIPTYLINE HCL 25 MG TAB 429866 AMITRIPTYLINE HCL Inactive AMOXICILLIN 500 MG TABS 2 tabs PO bid x 10 d 7 AMOXICILLIN 500 MG TABS 661759 AMOXICILLIN Inactive IMPLANON 68 MG IMPL IMPLANTED IN LEFT ARM IMPLANON 68 MG IMPL ETONOGESTREL Inactive HYDROCODONE-ACETAMINOPHEN 5-325 MG TABS 1 PO tid PRN pain 5 HYDROCODONE-ACETAMINOPHEN 5-325 MG TABS 549485 HYDROCODONE-ACETAMIN OPHEN Inactive BACTRIM DS 800-160 MG TAB 1 tab by mouth twice daily 2 BACTRIM DS 800-160 MG TAB TRIMETHOPRIM-SULFAMETHOXAZOLE Inac tive CEPHALEXIN 500 MG CAPS 1 PO bid x 7 days CEPHALEXIN 500 MG CAPS 935404 CEPHALEXIN Inactive HYDROCODONE-ACETAMINOPHEN 5-325 MG TABS 1 tab by mouth every 6 hours as needed HYDROCODONE-ACETAMINOPHEN 5-325 MG TABS 088931 HYDROCODONE-ACETAMINOPHEN Inactive PROMETHAZINE-CODEINE 6.25-10 MG/5ML SYRP 1 tsp every 6 hrs prn c ough PROMETHAZINE-CODEINE 6.25-10 MG/5ML SYRP 692183 PROMETH AZINE-CODEINE Inactive IBUPROFEN 800 MG TAB 1 pill three times daily as needed for pain IBUPROFEN 800 MG TAB 878509 IBUPROFEN Inactive KEFLEX 500 MG CAP 1 tab po tid KEFLEX 500 MG CAP 112705 CEPHALEXIN Inactive HYDROCODONE-ACETAMINOPHEN 7.5-325 MG TABS 1 four times a day as needed for pain HYDROCODONE-ACETAMINOPHEN 7.5-325 MG TABS 308366 HYDROCODONE-ACETAMINOPHEN Inactive BACTRIM DS 800-160 MG TABS by mouth twice a day 11/05 BACTRIM DS 800-160 MG TABS SULFAMETHOXAZOLE-TRIMETHOPRIM Inactive IBUPROFEN 800 MG TABS 1 tid prn IBUPROFEN 800 MG TABS 701488 IBUPROFEN Inactive ENDOCET 10-325 MG TABS 1 q 6 hr prn ENDOC ET 10-325 MG TABS 0846560 OXYCODONE-ACETAMINOPHEN Inactive HYDROCODONE-ACETAMINOPHEN 7.5-325 MG TABS 1 by mouth e very 6 hours as needed for pain HYDROCODONE-ACETAMINOPHEN 7.5-325 MG TABS 486081 HYDROCODONE-ACETAMINOPHEN Inactive PERCOCET 7.5-325 MG TABS 1 PO q 8 hrs PRN pain PERCOCET 7.5-325 MG TABS 1376864 OXYCODONE-ACETAMINOPHEN Inactive LIDODERM 5 % PTCH One patch to painful area [place] N. On for 12 hrs, off for 12 hrs. LIDODERM 5 % PTCH 6810202 LIDOCAINE Inactiv e PERCOCET 7.5-325 MG TABS 1 PO tid PRN pain PERCOCET 7.5- 325 MG TABS 4934370 OXYCODONE-ACETAMINOPHEN Inactive MOBIC 15 MG TABS 1 tab daily MOBIC 15 MG TABS 15 2695 MELOXICAM Inactive CYCLOBENZAPRINE HCL 10 MG TABS 1/2 - 1 tab PO tid PRN back p ain, muscle spasm CYCLOBENZAPRINE HCL 10 MG TABS 582075 CYCLOBENZA JOSEPH HCL Inactive LORATADINE 10 MG TABS 1 tablet by mouth daily LORATADINE 10 MG TABS 043814 LORATADINE Inactive HYDROCODONE-ACETAMINOPHEN 10-325 MG TABS 1 by mouth ev chaka 8 hours as needed for pain HYDROCODONE-ACETAMINOPHEN 10-325 MG TABS 744503 HYDROCODONE-ACETAMINOPHEN Inactive LC-5 LIDOCAINE 5 % CREA apply 1 time daily to affected area 2013 LC-5 LIDOCAINE 5 % CREA LIDOCAINE (ANORECTAL) In active PERCOCET 5-325 MG TAB 1 every 6 hours as needed PERCOCET 5-325 MG TAB 8386312 OXYCODONE-ACETAMINOPHEN Inactive KEFLEX 500 MG CAP 1 po qid KEFLEX 500 MG CAP 30 9114 CEPHALEXIN Inactive PROAIR HFA 108 (90 BASE) MCG/ACT AERS 2 puff q 4-6 hrs PRN 01/24 PROAIR HFA 108 (90 BASE) MCG/ACT AERS ALBUTEROL SULFATE Inactive PERCOCET 10-325 MG ORAL TABS 1 every 4 hours as needed PERCOCET 10-325 MG ORAL TABS 4748512 OXYCODONE-ACETAMINOPHEN Inactiv e EMLA 2.5-2.5 % EXT CREA apply to skin lesion q 6 hours, prn 2014 EMLA 2.5-2.5 % EXT CREA 919851 LIDOCAINE-PRILOCAINE Siri ctive AMOXICILLIN 875 MG TABS 1 tab by mouth twice daily 201 07/18/07 AMOXICILLIN 875 MG TABS 930064 AMOXICILLIN Inactive KEFLEX 500 MG CAP 1 po tid x 10 days KEFLEX 500 MG CAP 208102 CEPHALEXIN Inactive AMOXICILLIN 875 MG TABS 1 tab by mouth twice daily 201 07/19/27 AMOXICILLIN 875 MG TABS 830881 AMOXICILLIN Inactive AMOXICILLIN 875 MG TABS 1 tab by mouth twice daily 201 08/09/13 AMOXICILLIN 875 MG TABS 179353 AMOXICILLIN Inactive CIPRO 500 MG TAB 1 tablet by mouth twice daily CIPRO 500 MG TAB 824600 CIPROFLOXACIN HCL Inactive BACTRIM DS 800-160 MG TAB 1 tab by mouth twice daily 2 BACTRIM DS 800-160 MG TAB TRIMETHOPRIM-SULFAMETHOXAZOLE Inac tive LEVAQUIN 500 MG TABS 1 PO q day x 7 days LEVAQUIN 500 MG TABS 378965 LEVOFLOXACIN Inactive CLINDAMYCIN HCL 300 MG CAPS 1 po QID x 7 days CLINDAMYCIN HCL 300 MG CAPS 816826 CLINDAMYCIN HCL Inactive AUGMENTIN 875-125 MG TAB 1 tab by mouth twice daily with food 20 22/05/07 AUGMENTIN 875-125 MG TAB 294027 AMOXICILLIN-POT CLAVULA [place] Inactive DIFLUCAN 150 MG TAB 1 qODay x 2 doses DIFLUCAN 150 MG TAB 952783 FLUCONAZOLE Inactive PREDNISONE 20 MG TAB 2 tabs daily for 3 days, 1 t ab daily for 3 days, 1/2 tab daily for 2 days PREDNISONE 20 MG TAB 312342 PREDNISON E Inactive AUGMENTIN 875-125 MG TAB 1 tab by mouth twice daily with food 21/10/13 AUGMENTIN 875-125 MG TAB 606159 AMOXICILLIN-POT CLAVULA [place]AT[place] Inactive Advance Directives Directive Description Start Date PERMISSION TO SHARE Immunizations Vaccine Administration Date Value Standard Alf cription Seasonal influenza vaccine, injectable, containing preservative, for > 3 years old (Afluria, FluLaval, Fluzone, Fluvirin, Fluarix, Agriflu(>= 18 yo)) Fluzone (>3 yrs.) [[id number]] Influenza, seasonal, inject able Seasonal influenza vaccine, injectable, preservative free, for > 3 years old (Afluria, FluLaval, Fluzone, Fluvirin, Fluarix, Agriflu(>= 18 yo)) Fluzone preservative free (>3 yrs.) [[id number]] Influenza, seasonal, injectable, preservative free Seasonal influenza vaccine, injectable, containing preservative, for > 3 years old (Afluria, FluLaval, Fluzone, Fluvirin, Fluarix, Agriflu(>= 18 yo)) Fluzone (>3 yrs.) [[id number]] Influenza, seasonal, inject able Seasonal influenza vaccine, injectable, containing preservative, for > 3 years old (Afluria, FluLaval, Fluzone, Fluvirin, Fluarix, Agriflu(>= 18 yo)) Fluzone (>3 yrs.) [[id number]] Influenza, seasonal, inject able dT (Diphtheria and [...] pressure, diastolic - 8462-4 73 mm[Hg] BP irbeiro blood pressure, systolic - 8480-6 127 mm[Hg] [...] Panel - Chemistry sodium, serum 142 mmol/L 181-711 9999/05/12 potassium, serum 4.8 mmol/L 3.5-5.2 chloride, serum [...] Panel - Chemistry cholesterol, serum 165 mg/dL 601-875 1364/05/12 triglyceride, serum, fasting 524 mg/dL 30-200 HDL [...] negative Encounters Code Encounter Date Provider Facility CPT-16444 Level 2 Est. Patient 16:33:01 CDT Kalepsh goins MD [facility] CPT-26063 Level 4 Est. Patient 16:44:56 CDT Abdirahman Rios MD [facility] CPT-53398 Level 2 Est. Patient 07:49:32 CDT Kalpesh goins MD [facility] CPT-04626 Level 3 New Patient 15:47:11 EKG TECH Bj huber MD [facility] CPT-94913 Level 4 Est. Patient 14:37:38 EKG TECH [facility] Level 2 Est. Patient 13:32:17 EKG TECH Kalpesh goins MD [facility]-29738 Level 3 Est. Patient 17:32:57 EKG TECH Edilberto tiwari [facility]-93281 Level 3 Est. Patient 17:22:33 EKG TECH Edilberto tiwari [facility]-13596 Level 2 Est. Patient 16:57:09 EKG TECH Kalpesh goins MD [facility]-22543 Level 3 Est. Patient 14:03:08 EKG TECH Abdirahman Rios MD [facility]-82491 Level 3 Est. Patient 18:12:34 CDT Shola Wright [facility] CPT-99498 Level 3 Est. Patient 19:34:46 CDT Shola [facility]-57013 Level 3 Est. Patient 14:19:37 CDT Abdirahman Rios MD [facility] CPT-72396 Level 3 Est. Patient 14:11:58 CDT Kalpesh goins MD [facility]-73534 Level 3 Est. Patient 16:50:00 CDT Michelle MERCADO [facility] CPT-70407 Level 3 Est. Patient 17:11:32 EKG TECH Brandie bates MD PhD [facility]-09521 Level 3 Est. Patient 16:31:47 EKG TECH Shola Wright [facility] CPT-33125 Level 3 Est. Patient 17:51:10 EKG TECH Abhinav Galvan MD [facility]-40184 Level 4 Est. Patient 12:54:56 EKG TECH Kalpesh goins MD [facility]-83721 Level 4 Est. Patient 12:53:56 EKG TECH Kalpesh goins MD [facility] CPT-10031 Level 3 Est. Patient 17:56:58 CDT Shola Wright [facility] CPT-41258 Level 3 Est. Patient 14:26:20 CDT Janak butcher [facility] CPT-08441 Level 3 Est. Patient 09:38:41 CDT Shola Thao Adriana [facility] CPT-77155 Level 3 Est. Patient 14:45:26 CDT Edilberto tiwari [facility] CPT-72956 Level 3 Est. Patient 10:51:33 [facility] Level 3 Est. Patient 11:57:55 EKG TECH Shola Thao Adriana [facility] CPT-54038 Level 3 Est. Patient 09:53:33 EKG TECH Edilberto tiwari [facility] CPT-88341 Level 3 Est. Patient 14:42:54 EKG TECH Abhinav Galvan MD [facility] CPT-31466 Level 3 Est. Patient 15:10:02 CDT Janak butcher [facility] CPT-17819 Level 3 Est. Patient 15:20:20 CDT Theo dennis MD [facility] CPT-71187 Level 2 Est. Patient 14:08:57 CDT Kalpesh goins MD [facility] CPT-99223 Level 3 Est. Patient 13:56:19 CDT Abdirahman Rios MD [facility] CPT-17778 Level 3 Est. Patient 13:59:37 CDT Abdirahman Rios MD [facility]-60978 Level 2 Est. Patient 14:44:59 CDT Kalpesh goins MD [facility] CPT-35448 Level 3 Est. Patient 06:06:23 CDT Edilberto tiwari [facility] CPT-40839 Level 3 Est. Patient 15:23:54 CDT Abdirahman Rios MD [facility] CPT-63402 Level 3 Est. Patient 15:43:49 CDT Abdirahman Rios MD [facility] CPT-03915 Level 3 Est. Patient 12:46:47 EKG TECH Abdirahman Rios MD [facility] CPT-49054 Level 3 Est. Patient 08:13:35 EKG TECH Abdirahman Rios MD [facility] CPT-48590 Level 2 Est. Patient 09:36:42 EKG TECH Abdirahman Rios MD [facility] CPT-81397 Level 3 Est. Patient 10:56:43 CDT Abdirahman Rios MD [facility] CPT-07996 Level 3 Est. Patient 18:24:52 CDT Abdirahman Rios MD [facility] CPT-04931 Level 3 Est. Patient 13:27:22 CDT Abdirahman Rios MD [facility] Procedures Code Procedure Name Date Entry Date Standard Desc ription CPT-53361 Postop F/U Visit 14:40:59 CDT CPT-85039 Postop F/U Visit 15:02:46 CDT CPT-17888 Postop F/U Visit 11:29:00 EKG TECH CPT-J0696 Rocephin 1000 mg (Ceftriaxone) 17:22:33 EKG TECH CPT-31087 Postop F/U Visit 18:41:07 EKG TECH CPT-75518 Postop F/U Visit 08:19:08 EKG TECH CPT-58806 Immunization Single Admin 16:41:53 CDT 2013 CPT-46676 Fluzone Quadrivalent Intramuscular Suspe nsion 0.5 ML 16:41:53 CDT CPT-OV Office Visit 16:39:18 CDT CPT-OV Office Visit 16:16:36 CDT CPT-OV Office Visit 15:34:48 CDT CPT-20017 Postop F/U Visit 14:50:12 CDT CPT-74182 Postop F/U Visit 14:41:10 CDT CPT-18020 Venipuncture Draw Fee 11:38:04 EKG TECH CPT-94032 Postop F/U Visit 19:02:59 EKG TECH CPT-39400 Postop F/U Visit 12:04:54 EKG TECH CPT-53340 Administration single or combination vac cine inc oral 15:56:43 CDT CPT-01097 Influenza split virus > age 3 15:56:43 CDT CPT-40921 Hand comp min 3V 14:25:19 CDT CPT-40204 Postop F/U Visit 21:40:51 CDT CPT-08240 Postop F/U Visit 10:58:43 CDT CPT-27946 Administration single or combination vac cine inc oral 12:33:54 EKG TECH CPT-57534 Influenza Preservative Free split virus >age 3 12:33:54 EKG TECH CPT-00690 Administration single or combination vac cine inc oral 09:30:51 CDT CPT-67316 Influenza split virus > age 3 09:30:51 CDT CPT-52586 Postop F/U Visit 15:14:53 CDT CPT-94165 Postop F/U Visit 13:50:14 CDT CPT-84905 Postop F/U Visit 13:34:52 CDT CPT-OV Office Visit 16:55:03 CDT CPT-45467 [place] of cervix w bx ECC 13:32:50 CDT 10/19 CPT-J1885 Toradol 60 mg (Ketorolac) 15:31:59 CDT 2011 CPT-J1885 Toradol 60 mg (Ketorolac) 15:23:54 CDT 2011 CPT-50173 Visit 11:34:37 EKG TECH CPT-33142 Visit 10:52:39 EKG TECH CPT-81902 Visit 10:12:02 EKG TECH CPT-81038 Visit 11:22:43 EKG TECH CPT-10159 Visit 11:24:12 EKG TECH CPT-56071 Visit 10:47:05 EKG TECH CPT-OV Office Visit 10:26:16 EKG TECH CPT-OV Office Visit 15:34:31 EKG TECH CPT-95537 Visit 10:42:08 EKG TECH CPT-24517 Visit 10:52:45 EKG TECH CPT-000 Give Appropriate Flu Vaccine 16:56:41 CDT 2 CPT-94471 Administration single or combination vac cine inc oral 10:33:21 CDT CPT-13113 Influenza split virus > age 3 10:33:21 CDT CPT-54840 Visit 13:23:09 CDT CPT-68970 Visit 18:24:52 CDT CPT-79313 Son[facility] OB comp > 14 weeks 12:07:49 CDT 04/07
--- OUTSIDE RECORDS SUMMARY | 2020-01-18 15:56 | XMS REPORT | Clinical Summary ---
Author Author Admin, Jeri Rashid Organization [facility] Address Unknown Phone Unavailable Allergies, Adverse Reactions, Alerts Allergy Name Reaction Description Start Date Severity Status Pr ovider TORADOL Rash Severe Active Rajni [place] RN BACTRIM Critical Active Kalpesh Dong MD ZITHROMAX rash all over Critical Active Darya H aubrey LATEX rash Moderate Active Daryamikhail Phelan man Conditions or Problems Problem Name [...] unspecified SINUSITIS, ACUTE 461.9 Active Rajni Alcazar COMMERCIAL REAL ESTATE ASSISTANT Acute sinusitis, unspecified BACK PAIN 724.5 Resolved [...] Hypoglycemia, unspecified Anxiety 300.00 Active Joann Grace RMMitch Anxiety state, unspecified Swelling of limb 729.81 [...] Patient Instruction HYDROCODONE-ACETAMINOPHEN 5-325 MG TABS 1 tab by mouth every 6 hours as needed for pain HYDROCODONE-ACETAMINOPHEN 71682234671 No Longer Active Kalpesh Dong MD Active PERCOCET 10-325 MG ORAL TABS 1 every 4 hous as needed OXYCODONE-ACETAMINOPHEN 35958264123 Active Abdirahman Rios MD Active GLYDO 2 % EXT GEL apply to painful areas as needed LIDOCAINE HCL 17980457215 Active Kalpesh Dong MD Active LC-4 LIDOCAINE 4 % EXT CREA apply to painful area every 12 h ours or as needed LIDOCAINE 82670318033 Active Kalpesh Dong MD Active AUGMENTIN 875-125 MG TAB 1 tab by mouth twice daily with food 20 23/05/16 AMOXICILLIN-POT CLAVULANATE 28370809464 No Longer Active Lizeth hi Yokum COMMERCIAL REAL ESTATE ASSISTANT 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 FLUTICASONE PROPIONATE 01218608599 No Longer Ac tive Rajni Yokum COMMERCIAL REAL ESTATE ASSISTANT Active PERCOCET 10-325 MG ORAL TABS take 1 tab by mouth q 4hours as needed for pain OXYCODONE-ACETAMINOPHEN 72547418906 No Longer Active Rajni Yokum COMMERCIAL REAL ESTATE ASSISTANT Active PERCOCET 10-325 MG ORAL TABS one every 6 hours prn pain OXYCODONE-ACETAMINOPHEN 24238922525 No Longer Active Rajni Yokum COMMERCIAL REAL ESTATE ASSISTANT Active IBUPROFEN 800 MG TABS 1 tab po tid, with food I BUPROFEN 43096591152 Active Jillina Joyzell COMMERCIAL REAL ESTATE ASSISTANT Active PERCOCET 10-325 MG TABS 1 tablet every 8 hours as needed for pain 2 OXYCODONE-ACETAMINOPHEN 57522086067 Active Rajni Yokum COMMERCIAL REAL ESTATE ASSISTANT Active DICLOFENAC SODIUM 50 MG TBEC 1 tablet by mouth four times da tom PRN Pain DICLOFENAC SODIUM 99740883638 No Longer Active Rajni Yokum COMMERCIAL REAL ESTATE ASSISTANT Active VIIBRYD 10 & 20 & 40 MG KIT 1 po qd as directed 07/24 VILAZODONE HCL 88677966917 No Longer Active Rajni Yokum COMMERCIAL REAL ESTATE ASSISTANT Active ONDANSETRON 4 MG TBDP 1 q4h PRN nausea ONDANSET KELBY 98931649900 No Longer Active Rajni Yokum COMMERCIAL REAL ESTATE ASSISTANT Active PERCOCET 10-325 MG TABS 1 tablet every 8 hours as needed for antonia n OXYCODONE-ACETAMINOPHEN 85836286192 No Longer Active Rajni cox COMMERCIAL REAL ESTATE ASSISTANT Active HYDROCODONE-ACETAMINOPHEN 5-325 MG TABS 1 po TID PRN Pain 9 HYDROCODONE-ACETAMINOPHEN 94538850453 No Longer Active Abdirahman Rios MD Active LC-4 LIDOCAINE 4 % EXT CREA apply q 6 hours, prn LIDOCAINE 84522872005 Active Hira Moser COMMERCIAL REAL ESTATE ASSISTANT Active [id number] 50-325-40 MG ORAL CAPS 1-2 po TID LA N Headache [id number] 57868743884 No Longer Act krishna Kalpesh Dong MD Active ALPRAZOLAM 0.5 MG TABS 1 po BID PRN Anxiety ALP RAZOLAM 87919245171 No Longer Active Kalpesh Dong MD Active TRAZODONE HCL 100 MG TAB 0.5 to 1 po qHS PRN Insomnia TRAZODONE HCL 09150156744 No Longer Active Kalpesh Dong MD Activ e HYDROCODONE-ACETAMINOPHEN 5-325 MG TABS 1 po q6hr PRN Pain 04/09 HYDROCODONE-ACETAMINOPHEN 36061377288 No Longer Active Kalpesh Dong MD Active CYMBALTA 30 MG CPEP 1 cap by mouth daily DULOXE CLEO HCL 03583405549 No Longer Active Abdirahman Rios MD Active IBUPROFEN 600 MG ORAL TABS 1 by mouth twice a day 2014 IBUPROFEN 63393324910 No Longer Active Abdirahman Rios MD Activ e PERCOCET 5-325 MG TAB 1 tab po q 6 hours, prn severe pain 1 OXYCODONE-ACETAMINOPHEN 24567855482 No Longer Active Abdirahman Rios MD Active SPRINTEC 28 0.25-35 MG-MCG TABS 1 pill by mouth daily for bi rth control NORGESTIMATE-ETH ESTRADIOL 33518705769 No Longer Acti ve Hira Moser COMMERCIAL REAL ESTATE ASSISTANT Active CYCLOBENZAPRINE HCL 10 MG TABS 1 tablet by mouth three times daily as needed for muscle spasm/pain CYCLOBENZAPRINE HCL 69615723986 No Longer Active Hira Moser COMMERCIAL REAL ESTATE ASSISTANT Active HYDROCODONE-ACETAMINOPHEN 5-325 MG TABS 1 po q6hr PRN Pain 03/09 HYDROCODONE-ACETAMINOPHEN 96186669121 No Longer Active Matthewllina Karmen l COMMERCIAL REAL ESTATE ASSISTANT Active AUGMENTIN 500-125 MG ORAL TABS 1 by mouth twice a day AMOXICILLIN-POT CLAVULANATE 16705277913 No Longer Active Karenina Shanti COMMERCIAL REAL ESTATE ASSISTANT Active DICLOFENAC SODIUM 50 MG TBEC 1 tablet by mouth four times da tom PRN Pain DICLOFENAC SODIUM 97695533334 No Longer Active Karenin mitch Moser COMMERCIAL REAL ESTATE ASSISTANT Active PROMETHAZINE HCL 25 MG TABS 1 four times a day as needed for nausea/vomiting PROMETHAZINE HCL 50354506857 No Longer Active Abdirahman Rios MD Active HYDROCODONE-ACETAMINOPHEN 5-325 MG TABS 1 tab by mouth every 6 hours as needed PRN Pain HYDROCODONE-ACETAMINOPHEN 39111561688 No Longer Active Abdirahman Rios MD Active GEMFIBROZIL 600 MG TABS 1 po BID GEMFIBROZIL 56045132 005 Active Abdirahman Rios MD Active PERCOCET 5-325 MG ORAL TABS 1 every 6 hours as needed OXYCODONE-ACETAMINOPHEN 77585894752 No Longer Active Abdirhaman Rios MD Active PERCOCET 5-325 MG TAB 1 tab po q 6 -8 hours, prn for severe pain OXYCODONE-ACETAMINOPHEN 25096267464 No Longer Active Abdirahman Rios MD Active HYDROCODONE-ACETAMINOPHEN 5-325 MG TABS 1 po q6hr PRN pain 06/30 HYDROCODONE-ACETAMINOPHEN 67782353593 No Longer Active Hira roman APRN Active GLUCOPHAGE 500 MG ORAL TABS one by mouth 3 times a day METFORMIN HCL 61348278186 No Longer Active Hira Moser COMMERCIAL REAL ESTATE ASSISTANT Ac tive PERCOCET 10-325 MG TABS 1 tab by mouth every 6 hours , use sparingly for severe pain OXYCODONE-ACETAMINOPHEN 84747360365 No Longer A ctive Abdirahman Rios MD Active EMLA 2.5-2.5 % EXT CREA apply to skin lesion q 6 hours, prn 2014 LIDOCAINE-PRILOCAINE 97689347253 No Longer Active Abdirahman Rios MD Active PERCOCET 10-325 MG ORAL TABS 1 every 4 hours as needed OXYCODONE-ACETAMINOPHEN 66297241931 No Longer Active Abdirahman Rios MD Active AUGMENTIN 875-125 MG TAB 1 tab by mouth twice daily with food 20 21/10/13 AMOXICILLIN-POT CLAVULANATE 22866333777 No Longer Active Ursula Moser APRN Active PROAIR HFA 108 (90 BASE) MCG/ACT AERS 2 puff q 4-6 hrs PRN 01/24 ALBUTEROL SULFATE 90527453528 No Longer Active Kalpesh Dong MD Active PREDNISONE 20 MG TAB 2 tabs daily for 3 days, 1 t ab daily for 3 days, 1/2 tab daily for 2 days PREDNISONE 15159471570 No Longer Active Abdirahman Rios MD Active KEFLEX 500 MG CAP 1 po qid CEPHALEXIN 975040163 20 No Longer Active Kalpesh Dong MD Active PERCOCET 5-325 MG TAB 1 every 6 hours as needed OXYCODONE-ACETAMINOPHEN 88029903653 No Longer Active Shola MCGILL Active LC-5 LIDOCAINE 5 % CREA apply 1 time daily to affected area 2013 LIDOCAINE (ANORECTAL) 81144543276 No Longer Active Hira muniz APRN Active HYDROCODONE-ACETAMINOPHEN 10-325 MG TABS 1 by mouth ev chaka 8 hours as needed for pain HYDROCODONE-ACETAMINOPHEN 86891440615 No Longer Active Jillina Frazell COMMERCIAL REAL ESTATE ASSISTANT Active LORATADINE 10 MG TABS 1 tablet by mouth daily L ORATADINE 46528940736 No Longer Active Jillina Frazell COMMERCIAL REAL ESTATE ASSISTANT Active DIFLUCAN 150 MG TAB 1 qODay x 2 doses FLUCONAZO LE 21134032229 No Longer Active Jillina Frazell COMMERCIAL REAL ESTATE ASSISTANT Active CYCLOBENZAPRINE HCL 10 MG TABS 1/2 - 1 tab PO tid PRN back p ain, muscle spasm CYCLOBENZAPRINE HCL 99678095142 No Longer Active Karen siri Frazell COMMERCIAL REAL ESTATE ASSISTANT Active AUGMENTIN 875-125 MG TAB 1 tab by mouth twice daily with food 20 22/05/07 AMOXICILLIN-POT CLAVULANATE 62240460859 No Longer Active Loida Rios MD Active MOBIC 15 MG TABS 1 tab daily MELOXICAM 583918999 14 No Longer Active Abdirahman Rios MD Active PERCOCET 7.5-325 MG TABS 1 PO tid PRN pain OXYCODONE-ACETAMINOPHEN 59404257508 No Longer Active Abdirahman Rios MD Active LIDODERM 5 % PTCH One patch to painful area LA N. On for 12 hrs, off for 12 hrs. LIDOCAINE 58135693301 No Longer Active Abdirahman Rios MD Active PERCOCET 7.5-325 MG TABS 1 PO q 8 hrs PRN pain OXYCODONE-ACETAMINOPHEN 86384368212 No Longer Active Shola MCGILL Active HYDROCODONE-ACETAMINOPHEN 7.5-325 MG TABS 1 by mouth e very 6 hours as needed for pain HYDROCODONE-ACETAMINOPHEN 39174385414 No Longer Active Good Julian MD Active CLINDAMYCIN HCL 300 MG CAPS 1 po QID x 7 days CLINDAMYCIN HCL 43084163347 No Longer Active Abdirahman Rios MD Activ e BACTRIM DS 800-160 MG TABS 1 po BID x 7 days 5 SULFAMETHOXAZOLE-TRIMETHOPRIM 83435367722 No Longer Active Abdirahman Rios MD Active ENDOCET 10-325 MG TABS 1 q 6 hr prn OXYCODONE-ACETAMINOPHEN 81896318673 No Longer Active Abdirahman Rios MD Active IBUPROFEN 800 MG TABS 1 tid prn IBUPROFEN 767927 05623 No Longer Active Abdirahman Rios MD Active BACTRIM DS 800-160 MG TABS by mouth twice a day 11/05 SULFAMETHOXAZOLE-TRIMETHOPRIM 70485029689 No Longer Active Good Julian MD Active HYDROCODONE-ACETAMINOPHEN 7.5-325 MG TABS 1 four times a day as needed for pain HYDROCODONE-ACETAMINOPHEN 48438203017 No Longer Activ e Good Julian MD Active KEFLEX 500 MG CAP 1 tab po tid CEPHALEXIN 624473 01920 No Longer Active Hira Moser APRN Active IBUPROFEN 800 MG TAB 1 pill three times daily as needed for pain IBUPROFEN 35728416734 No Longer Active Kalpesh Dong MD Active PROMETHAZINE-CODEINE 6.25-10 MG/5ML SYRP 1 tsp every 6 hrs prn c ou PROMETHAZINE-CODEINE 83320277616 No Longer Active Kalpesh Carr Active HYDROCODONE-ACETAMINOPHEN 5-325 MG TABS 1 tab by mouth every 6 hours as needed HYDROCODONE-ACETAMINOPHEN 89049014084 No Longer Activ e Shola CMGILL Active CEPHALEXIN 500 MG CAPS 1 PO bid x 7 days CEPHAL EXIN 72119529401 No Longer Active Shola MCGILL Active BACTRIM DS 800-160 MG TAB 1 tab by mouth twice daily 2 TRIMETHOPRIM-SULFAMETHOXAZOLE 33798443602 No Longer Active Kalpesh Dong MD Active HYDROCODONE-ACETAMINOPHEN 5-325 MG TABS 1 PO tid PRN pain 5 HYDROCODONE-ACETAMINOPHEN 10451175551 No Longer Active Abhinav Galvan MD Active IMPLANON 68 MG IMPL IMPLANTED IN LEFT ARM ETONO GESTREL 15976491651 No Longer Active Hira Moser APRN Active AMOXICILLIN 500 MG TABS 2 tabs PO bid x 10 d AM OXICILLIN 93368761705 No Longer Active Kalpesh Dong MD Active LEVAQUIN 500 MG TABS 1 PO q day x 7 days LEVOFL OXACIN 71712098125 No Longer Active Shola MCGILL Active AMITRIPTYLINE HCL 25 MG TAB 1 tab by mouth daily 60 minutes before bedtime AMITRIPTYLINE HCL 63988504313 No Longer Active Shola MCGILL Active LORTAB 5 5-500 MG TABS 1/2 to 1 tablet by mouth go ry 6 hours as needed for pain HYDROCODONE-ACETAMINOPHEN 45887270712 No Longer Active Shola MCGILL Active CEPHALEXIN 500 MG TABS Take one by mouth four times daily, morning, noon, early evening and bedtime. CEPHALEXIN 97452233718 No Long er Active Hira Moser APRN Active TYLENOL/CODEINE #3 300-30 MG TAB 1-2 po q6hr PRN Pain ACETAMINOPHEN-CODEINE 37894070673 No Longer Active Edilberto Marino DO Active PRISTIQ 50 MG [id number] 1 po qd DESVENLAFAXI NE SUCCINATE 80011773731 No Longer Active Edilberto Marino DO Active PENICILLIN V POTASSIUM 500 MG TAB 1 four times a day 2 PENICILLIN V POTASSIUM 72145579861 No Longer Active Edilberto Marino DO Active DOXYCYCLINE HYCLATE 100 MG CAPS Take one (1) tablet by mouth twice a day DOXYCYCLINE HYCLATE 28091071910 No Longer Active Ronnie Galvan MD Active HYDROCODONE-ACETAMINOPHEN 5-325 MG TABS 1 po q 6hr PRN Pain 2011 HYDROCODONE-ACETAMINOPHEN 21124169044 No Longer Active Patri joan Perez RN Active BACTRIM DS 800-160 MG TAB 1 tab by mouth twice daily 2 TRIMETHOPRIM-SULFAMETHOXAZOLE 14617173999 No Longer Active Kalpesh Dong MD Active LORTAB 5 5-500 MG TABS 1/2 to 1 tablet by mouth go ry 4 hours as needed for pain HYDROCODONE-ACETAMINOPHEN 61985197469 No Longer Active Kalpesh Dong MD Active GENERESS FE 0.8-25 MG-MCG CHEW Take one by mouth daily NORETHIN-ETH ESTRADIOL-FE 76339230441 No Longer Active Kalpesh Dong MD Active HYDROCODONE-ACETAMINOPHEN 7.5-500 MG TABS 1-2 every 4 hours as needed HYDROCODONE-ACETAMINOPHEN 11401910089 No Longer Activ e Kalpesh Dong MD Active FERROUS SULFATE 325 (65 FE) MG TABS 1 tablet by mouth twice yung y FERROUS SULFATE 73070084523 No Longer Active Kalpesh Dong MD Active IBUPROFEN 600 MG TAB 1 po q6-8hr PRN IBUPROFEN 31232152605 No Longer Active Kalpesh Dong MD Active SPIRONOLACTONE 25 MG TAB 1 tablet by mouth daily 01/22 SPIRONOLACTONE 91751397223 No Longer Active Kalpesh Dong MD Acti ve HYDROCODONE-ACETAMINOPHEN 7.5-325 MG TABS 1 po QID PRN Pain 2011 HYDROCODONE-ACETAMINOPHEN 49055318613 No Longer Active Kalpesh Dong MD Active CLINDAMYCIN HCL 300 MG CAPS 1 po q6hr x 7 days CLINDAMYCIN HCL 11509682032 No Longer Active Edilberto Marino DO Active PREDNISONE 20 MG TAB 2 tabs daily for 4 days, 1 t ab daily for 4 days, 1/2 tab daily for 4 days PREDNISONE 29833867290 No Longer Active Edilberto Marino DO Active PERCOCET 5-325 MG TABS 1 tablet by mouth every 6 hours as ne eded for pain OXYCODONE-ACETAMINOPHEN 43758333671 No Longer Active Abdirahman Rios MD Active VITAMINS TABS Take one by mouth daily MV & MIN W/FE-FA TABS 18024497664 No Longer Active Abdirahman Rios MD Active LUIS 3-0.02 MG TABS 1 tablet by mouth daily as directed DROSPIRENONE-ETHINYL ESTRADIOL 77569317030 No Longer Active Abdirahman Rios MD Active LORATADINE 10 MG TABS 1 tablet by mouth daily L ORATADINE 85551433682 No Longer Active Kalpesh Dong MD Active HYDROCODONE-ACETAMINOPHEN 5-325 MG TABS 1 po q 6hr PRN Pain 2010 HYDROCODONE-ACETAMINOPHEN 07616110150 No Longer Active Edilberto Marino DO Active BACTRIM DS 800-160 MG TAB 1 tab by mouth twice daily 2 TRIMETHOPRIM-SULFAMETHOXAZOLE 54414224704 No Longer Active Abdirahman Rios MD Active 28-0.8 MG TABS Take one by mouth daily 09/20 VIT-FE FUMARATE-FA 34485442056 No Longer Active Abdirahman Rios MD Active CIPRO 500 MG TAB 1 tablet by mouth twice daily CIPROFLOXACIN HCL 79480529305 No Longer Active Abdiarhman Rios MD Active BENADRYL 25 MG CAP 1 po q8hr PRN Congestion DIPHENHYDRAMINE HCL 13116140485 No Longer Active Abdirahman Rios MD Active ZOLOFT 50 MG TAB 1 po qd SERTRALINE HCL 039224 67492 No Longer Active Abdirahman Rios MD Active AMOXICILLIN 875 MG TABS 1 tab by mouth twice daily 201 08/09/13 AMOXICILLIN 66389974922 No Longer Active Abdirahman Rios MD Activ e AMOXICILLIN 875 MG TABS 1 tab by mouth twice daily 201 07/19/27 AMOXICILLIN 92598569703 No Longer Active Abdirahman Rios MD Activ e BACTRIM DS 800-160 MG TAB 2 tab by mouth twice daily 2 TRIMETHOPRIM-SULFAMETHOXAZOLE 99571986577 No Longer Active Abdirahman Rios MD Active KEFLEX 500 MG CAP 1 po tid x 10 days CEPHALEXIN 48579461498 No Longer Active Abdirahman Rios MD Active AMOXICILLIN 875 MG TABS 1 tab by mouth twice daily 201 07/18/07 AMOXICILLIN 98368466405 No Longer Active Abdirahman Rios MD Activ e BACTRIM DS 800-160 MG TAB 2 tab by mouth twice daily 2 BACTRIM DS 800-160 MG TAB 660614 TRIMETHOPRIM-SULFAMETHOXAZOLE Inactive ZOLOFT 50 MG TAB 1 po qd ZOLOFT 50 MG TAB 3129 41 SERTRALINE HCL Inactive BENADRYL 25 MG CAP 1 po q8hr PRN Congestion BENADRYL 25 MG CAP 7994427 DIPHENHYDRAMINE HCL Inactive 28-0.8 MG TABS Take one by mouth daily 09/20 28-0.8 MG TABS VIT-FE FUMARATE-FA Inactive HYDROCODONE-ACETAMINOPHEN 5-325 MG TABS 1 po q 6hr PRN Pain 2010 HYDROCODONE-ACETAMINOPHEN 5-325 MG TABS 547384 HYDROCODONE-ACETAMINOPHEN Inactive LORATADINE 10 MG TABS 1 tablet by mouth daily LORATADINE 10 MG TABS 642181 LORATADINE Inactive LUIS 3-0.02 MG TABS 1 tablet by mouth daily as directed LUIS 3-0.02 MG TABS 773599 DROSPIRENONE-ETHINYL ESTRADIOL Inactive VITAMINS TABS Take one by mouth daily VITAMINS TABS MV & MIN W/FE-FA TABS Inactive PERCOCET 5-325 MG TABS 1 tablet by mouth every 6 hours as ne eded for pain PERCOCET 5-325 MG TABS 8803823 OXYCODONE-ACETAMIN OPHEN Inactive PREDNISONE 20 MG TAB 2 tabs daily for 4 days, 1 t ab daily for 4 days, 1/2 tab daily for 4 days PREDNISONE 20 MG TAB 859127 PREDNISON E Inactive CLINDAMYCIN HCL 300 MG CAPS 1 po q6hr x 7 days CLINDAMYCIN HCL 300 MG CAPS 122019 CLINDAMYCIN HCL Inactive HYDROCODONE-ACETAMINOPHEN 7.5-325 MG TABS 1 po QID PRN Pain 2011 HYDROCODONE-ACETAMINOPHEN 7.5-325 MG TABS 726129 HYDROCODONE-ACETAMINOPHEN Inactive SPIRONOLACTONE 25 MG TAB 1 tablet by mouth daily 01/22 SPIRONOLACTONE 25 MG TAB 902885 SPIRONOLACTONE Inactive IBUPROFEN 600 MG TAB 1 po q6-8hr PRN IBUPROFEN 600 MG TAB 688318 IBUPROFEN Inactive FERROUS SULFATE 325 (65 FE) MG TABS 1 tablet by mouth twice yung y FERROUS SULFATE 325 (65 FE) MG TABS 466964 FERROUS SULF ATE Inactive HYDROCODONE-ACETAMINOPHEN 7.5-500 MG TABS 1-2 every 4 hours as needed HYDROCODONE-ACETAMINOPHEN 7.5-500 MG TABS HYDROCODONE-ACETAMINOPHEN Inactive GENERESS FE 0.8-25 MG-MCG CHEW Take one by mouth daily GENERESS FE 0.8-25 MG-MCG CHEW [id number] NORETHIN-ETH ESTRADIOL-FE Inactive LORTAB 5 5-500 MG TABS 1/2 to 1 tablet by mouth go ry 4 hours as needed for pain LORTAB 5 5-500 MG TABS HYDROCODONE-A CETAMINOPHEN Inactive BACTRIM DS 800-160 MG TAB 1 tab by mouth twice daily 2 BACTRIM DS 800-160 MG TAB 142876 TRIMETHOPRIM-SULFAMETHOXAZOLE Inac tive HYDROCODONE-ACETAMINOPHEN 5-325 MG TABS 1 po q 6hr PRN Pain 2011 HYDROCODONE-ACETAMINOPHEN 5-325 MG TABS 255123 HYDROCODONE-ACETAMINOPHEN Inactive DOXYCYCLINE HYCLATE 100 MG CAPS Take one (1) tablet by mouth twice a day DOXYCYCLINE HYCLATE 100 MG CAPS 4049158 DOXYCYCLINE HYCLATE Inactive PENICILLIN V POTASSIUM 500 MG TAB 1 four times a day 2 PENICILLIN V POTASSIUM 500 MG TAB 704634 PENICILLIN V POTASSIUM Siri ctive PRISTIQ 50 MG [id number] 1 po qd PRISTIQ 50 MG [id number] DESVENLAFAXINE SUCCINATE Inactive TYLENOL/CODEINE #3 300-30 MG TAB 1-2 po q6hr PRN Pain TYLENOL/CODEINE #3 300-30 MG TAB 187369 ACETAMINOPHEN-CODEINE Inact krishna CEPHALEXIN 500 MG TABS Take one by mouth four times daily, morning, noon, early evening and bedtime. CEPHALEXIN 500 MG TABS 944886 CEPHALEXIN Inactive LORTAB 5 5-500 MG TABS 1/2 to 1 tablet by mouth go ry 6 hours as needed for pain LORTAB 5 5-500 MG TABS HYDROCODONE-A CETAMINOPHEN Inactive AMITRIPTYLINE HCL 25 MG TAB 1 tab by mouth daily 60 minutes before bedtime AMITRIPTYLINE HCL 25 MG TAB 577827 AMITRIPTYLINE HCL Inactive AMOXICILLIN 500 MG TABS 2 tabs PO bid x 10 d 7 AMOXICILLIN 500 MG TABS 446302 AMOXICILLIN Inactive IMPLANON 68 MG IMPL IMPLANTED IN LEFT ARM IMPLANON 68 MG IMPL ETONOGESTREL Inactive HYDROCODONE-ACETAMINOPHEN 5-325 MG TABS 1 PO tid PRN pain 5 HYDROCODONE-ACETAMINOPHEN 5-325 MG TABS 686138 HYDROCODONE-ACETAMIN OPHEN Inactive BACTRIM DS 800-160 MG TAB 1 tab by mouth twice daily 2 BACTRIM DS 800-160 MG TAB 117862 TRIMETHOPRIM-SULFAMETHOXAZOLE Inac tive CEPHALEXIN 500 MG CAPS 1 PO bid x 7 days CEPHALEXIN 500 MG CAPS 041812 CEPHALEXIN Inactive HYDROCODONE-ACETAMINOPHEN 5-325 MG TABS 1 tab by mouth every 6 hours as needed HYDROCODONE-ACETAMINOPHEN 5-325 MG TABS 955279 HYDROCODONE-ACETAMINOPHEN Inactive PROMETHAZINE-CODEINE 6.25-10 MG/5ML SYRP 1 tsp every 6 hrs prn c ough PROMETHAZINE-CODEINE 6.25-10 MG/5ML SYRP 401982 PROMETH AZINE-CODEINE Inactive IBUPROFEN 800 MG TAB 1 pill three times daily as needed for pain IBUPROFEN 800 MG TAB 022878 IBUPROFEN Inactive KEFLEX 500 MG CAP 1 tab po tid KEFLEX 500 MG CAP 935358 CEPHALEXIN Inactive HYDROCODONE-ACETAMINOPHEN 7.5-325 MG TABS 1 four times a day as needed for pain HYDROCODONE-ACETAMINOPHEN 7.5-325 MG TABS 895930 HYDROCODONE-ACETAMINOPHEN Inactive BACTRIM DS 800-160 MG TABS by mouth twice a day 11/05 BACTRIM DS 800-160 MG TABS 056178 SULFAMETHOXAZOLE-TRIMETHOPRIM Inactive IBUPROFEN 800 MG TABS 1 tid prn IBUPROFEN 800 MG TABS 629657 IBUPROFEN Inactive ENDOCET 10-325 MG TABS 1 q 6 hr prn ENDOC ET 10-325 MG TABS 0136745 OXYCODONE-ACETAMINOPHEN Inactive HYDROCODONE-ACETAMINOPHEN 7.5-325 MG TABS 1 by mouth e very 6 hours as needed for pain HYDROCODONE-ACETAMINOPHEN 7.5-325 MG TABS 954517 HYDROCODONE-ACETAMINOPHEN Inactive PERCOCET 7.5-325 MG TABS 1 PO q 8 hrs PRN pain PERCOCET 7.5-325 MG TABS 2598777 OXYCODONE-ACETAMINOPHEN Inactive LIDODERM 5 % PTCH One patch to painful area [place] N. On for 12 hrs, off for 12 hrs. LIDODERM 5 % [facility] 0619574 LIDOCAINE Inactiv e PERCOCET 7.5-325 MG TABS 1 PO tid PRN pain PERCOCET 7.5- 325 MG TABS 6093463 OXYCODONE-ACETAMINOPHEN Inactive MOBIC 15 MG TABS 1 tab daily MOBIC 15 MG TABS 15 2695 MELOXICAM Inactive CYCLOBENZAPRINE HCL 10 MG TABS 1/2 - 1 tab PO tid PRN back p ain, muscle spasm CYCLOBENZAPRINE HCL 10 MG TABS 980866 CYCLOBENZA JOSEPH HCL Inactive LORATADINE 10 MG TABS 1 tablet by mouth daily LORATADINE 10 MG TABS 810856 LORATADINE Inactive HYDROCODONE-ACETAMINOPHEN 10-325 MG TABS 1 by mouth ev chaka 8 hours as needed for pain HYDROCODONE-ACETAMINOPHEN 10-325 MG TABS 804299 HYDROCODONE-ACETAMINOPHEN Inactive LC-5 LIDOCAINE 5 % CREA apply 1 time daily to affected area 2013 LC-5 LIDOCAINE 5 % CREA 0203240 LIDOCAINE (ANORECTAL) In active PERCOCET 5-325 MG TAB 1 every 6 hours as needed PERCOCET 5-325 MG TAB 6929848 OXYCODONE-ACETAMINOPHEN Inactive KEFLEX 500 MG CAP 1 po qid KEFLEX 500 MG CAP 30 9114 CEPHALEXIN Inactive PROAIR HFA 108 (90 BASE) MCG/ACT AERS 2 puff q 4-6 hrs PRN 01/24 PROAIR HFA 108 (90 BASE) MCG/ACT AERS ALBUTEROL SULFATE Inactive PERCOCET 10-325 MG ORAL TABS 1 every 4 hours as needed PERCOCET 10-325 MG ORAL TABS 4913589 OXYCODONE-ACETAMINOPHEN Inactiv e EMLA 2.5-2.5 % EXT CREA apply to skin lesion q 6 hours, prn 2014 EMLA 2.5-2.5 % EXT CREA 336415 LIDOCAINE-PRILOCAINE Siri ctive PERCOCET 10-325 MG TABS 1 tab by mouth every 6 hours , use sparingly for severe pain PERCOCET 10-325 MG TABS 6171593 OXYCODONE-ACETAMINOPHEN Inactive GLUCOPHAGE 500 MG ORAL TABS one by mouth 3 times a day GLUCOPHAGE 500 MG ORAL TABS 012131 METFORMIN HCL Inactive HYDROCODONE-ACETAMINOPHEN 5-325 MG TABS 1 po q6hr PRN pain 06/30 HYDROCODONE-ACETAMINOPHEN 5-325 MG TABS 428267 HYDROCOD ONE-ACETAMINOPHEN Inactive PERCOCET 5-325 MG TAB 1 tab po q 6 -8 hours, prn for severe pain PERCOCET 5-325 MG TAB 3697639 OXYCODONE-ACETAMINOPHEN In active PERCOCET 5-325 MG ORAL TABS 1 every 6 hours as needed PERCOCET 5-325 MG ORAL TABS 3530254 OXYCODONE-ACETAMINOPHEN Inactive DICLOFENAC SODIUM 50 MG TBEC 1 tablet by mouth four times da tom PRN Pain DICLOFENAC SODIUM 50 MG TBEC [id number] DICLOFENAC S ODIUM Inactive AUGMENTIN 500-125 MG ORAL TABS 1 by mouth twice a day AUGMENTIN 500-125 MG ORAL TABS [id number] AMOXICILLIN-POT CLAVULANATE I nactive HYDROCODONE-ACETAMINOPHEN 5-325 MG TABS 1 po q6hr PRN Pain 03/09 HYDROCODONE-ACETAMINOPHEN 5-325 MG TABS [id number] HYDROCOD ONE-ACETAMINOPHEN Inactive CYCLOBENZAPRINE HCL 10 MG TABS 1 tablet by mouth three times daily as needed for muscle spasm/pain CYCLOBENZAPRINE HCL 10 MG TABS [id number] CYCLOBENZAPRINE HCL Inactive SPRINTEC 28 0.25-35 MG-MCG TABS 1 pill by mouth daily for bi rth control SPRINTEC 28 0.25-35 MG-MCG TABS [id number] NORGESTIMATE-ETH ESTRADIOL Inactive PERCOCET 5-325 MG TAB 1 tab po q 6 hours, prn severe pain PERCOCET 5-325 MG TAB [id number] OXYCODONE-ACETAMINOPHEN Inactive IBUPROFEN 600 MG ORAL TABS 1 by mouth twice a day 2014 IBUPROFEN 600 MG ORAL TABS [id number] IBUPROFEN Inactive CYMBALTA 30 MG CPEP 1 cap by mouth daily CYMBALTA 30 MG CPEP [id number] DULOXETINE HCL Inactive HYDROCODONE-ACETAMINOPHEN 5-325 MG TABS 1 po q6hr PRN Pain 04/09 HYDROCODONE-ACETAMINOPHEN 5-325 MG TABS [id number] HYDROCOD ONE-ACETAMINOPHEN Inactive TRAZODONE HCL 100 MG TAB 0.5 to 1 po qHS PRN Insomnia TRAZODONE HCL 100 MG TAB [id number] TRAZODONE HCL Inactive ALPRAZOLAM 0.5 MG TABS 1 po BID PRN Anxiety ALPRAZOLAM 0.5 MG TABS [id number] ALPRAZOLAM Inactive ANAQBCGGTH-EGJ-AXZFULQS 50-325-40 MG ORAL CAPS 1-2 po TID LA N Headache OTWSLIKPCE-LYL-DNMSONJN 50-325-40 MG ORAL CAPS 2 15526 LHOAACMJAA-WPLYYAW-HZMERDJW Inactive HYDROCODONE-ACETAMINOPHEN 5-325 MG TABS 1 po TID PRN Pain 9 HYDROCODONE-ACETAMINOPHEN 5-325 MG TABS [id number] HYDROCODONE-ACETAMIN OPHEN Inactive PERCOCET 10-325 MG TABS 1 tablet every 8 hours as needed for [place] n PERCOCET 10-325 MG TABS [id number] OXYCODONE-ACETAMINOPHEN Inactive ONDANSETRON 4 MG TBDP 1 q4h PRN nausea ON DANSETRON 4 MG TBDP [id number] ONDANSETRON Inactive VIIBRYD 10 & 20 & 40 MG KIT 1 po qd as directed 07/24 VIIBRYD 10 & 20 & 40 MG KIT VILAZODONE HCL Inactive DICLOFENAC SODIUM 50 MG TBEC 1 tablet by mouth four times da tom PRN Pain DICLOFENAC SODIUM 50 MG TBEC 224589 DICLOFENAC S ODIUM Inactive PERCOCET 10-325 MG ORAL TABS one every 6 hours prn pain PERCOCET 10-325 MG ORAL TABS [id number] OXYCODONE-ACETAMINOPHEN Inactiv e PERCOCET 10-325 MG ORAL TABS take 1 tab by mouth q 4hours as needed for pain PERCOCET 10-325 MG ORAL TABS [id number] OXYCODONE-ACETAMINOPHEN Inactive FLONASE ALLERGY RELIEF 50 MCG/ACT NASAL SUSP One spray in each nostril twice a day. FLONASE ALLERGY RELIEF 50 MCG/ACT NASAL [facility] [id number] FLUTICASONE PROPIONATE Inactive AUGMENTIN 875-125 MG TAB 1 tab by mouth twice daily with food 20 23/05/16 AUGMENTIN 875-125 MG TAB [id number] AMOXICILLIN-POT [place] Inactive HYDROCODONE-ACETAMINOPHEN 5-325 MG TABS 1 tab by mouth every 6 hours as needed for pain HYDROCODONE-ACETAMINOPHEN 5-325 MG TABS 8 54681 HYDROCODONE-ACETAMINOPHEN Inactive AMOXICILLIN 875 MG TABS 1 tab by mouth twice daily 201 07/18/07 AMOXICILLIN 875 MG TABS 255376 AMOXICILLIN Inactive KEFLEX 500 MG CAP 1 po tid x 10 days KEFLEX 500 MG CAP 846419 CEPHALEXIN Inactive AMOXICILLIN 875 MG TABS 1 tab by mouth twice daily 201 07/19/27 AMOXICILLIN 875 MG TABS 746393 AMOXICILLIN Inactive AMOXICILLIN 875 MG TABS 1 tab by mouth twice daily 201 08/09/13 AMOXICILLIN 875 MG TABS 525584 AMOXICILLIN Inactive CIPRO 500 MG TAB 1 tablet by mouth twice daily CIPRO 500 MG TAB 715479 CIPROFLOXACIN HCL Inactive BACTRIM DS 800-160 MG TAB 1 tab by mouth twice daily 2 BACTRIM DS 800-160 MG TAB 604891 TRIMETHOPRIM-SULFAMETHOXAZOLE Inac tive LEVAQUIN 500 MG TABS 1 PO q day x 7 days LEVAQUIN 500 MG TABS 872077 LEVOFLOXACIN Inactive CLINDAMYCIN HCL 300 MG CAPS 1 po QID x 7 days CLINDAMYCIN HCL 300 MG CAPS 238109 CLINDAMYCIN HCL Inactive AUGMENTIN 875-125 MG TAB 1 tab by mouth twice daily with food 20 22/05/07 AUGMENTIN 875-125 MG TAB 839571 AMOXICILLIN-POT [place] Inactive DIFLUCAN 150 MG TAB 1 qODay x 2 doses DIFLUCAN 150 MG TAB 191732 FLUCONAZOLE Inactive PREDNISONE 20 MG TAB 2 tabs daily for 3 days, 1 t ab daily for 3 days, 1/2 tab daily for 2 days PREDNISONE 20 MG TAB 097191 PREDNISON E Inactive AUGMENTIN 875-125 MG TAB 1 tab by mouth twice daily with food 21/10/13 AUGMENTIN 875-125 MG TAB 531371 AMOXICILLIN-POT [place] Inactive HYDROCODONE-ACETAMINOPHEN 5-325 MG TABS 1 tab by mouth every 6 hours as needed PRN Pain HYDROCODONE-ACETAMINOPHEN 5-325 MG TABS 8 24192 HYDROCODONE-ACETAMINOPHEN Inactive PROMETHAZINE HCL 25 MG TABS 1 four times a day as needed for nausea/vomiting PROMETHAZINE HCL 25 MG TABS 893233 PROMETHAZINE HCL Inactive Advance Directives Directive Description Start Date PERMISSION TO SHARE Immunizations Vaccine Administration Date Value Standard Alf cription Seasonal influenza vaccine, injectable, containing preservative, for > 3 years old (Afluria, FluLaval, Fluzone, Fluvirin, Fluarix, Agriflu(>= 18 yo)) Fluzone (>3 yrs.) [[id number]] Influenza, seasonal, inject able Seasonal influenza vaccine, injectable, preservative free, for > 3 years old (Afluria, FluLaval, Fluzone, Fluvirin, Fluarix, Agriflu(>= 18 yo)) Fluzone preservative free (>3 yrs.) [[id number]] Influenza, seasonal, injectable, preservative free Seasonal influenza vaccine, injectable, containing preservative, for > 3 years old (Afluria, FluLaval, Fluzone, Fluvirin, Fluarix, Agriflu(>= 18 yo)) Fluzone (>3 yrs.) [[id number]] Influenza, seasonal, inject able Seasonal influenza vaccine, injectable, containing preservative, for > 3 years old (Afluria, FluLaval, Fluzone, Fluvirin, Fluarix, Agriflu(>= 18 yo)) Fluzone (>3 yrs.) [[id number]] Influenza, seasonal, inject able dT (Diphtheria and Tetanus) booster given Histor ical Td(adult) unspecified formulation Vital Signs Date Name Value Unit Range Description blood pressure, diastolic - 8462-4 74 mm[Hg] [...] - 3141-9 232 [lb_av] Weigh t Measured Diagnostic Results Date [...] Panel - Chemistry sodium, serum 142 mmol/L 866-111 1042/05/12 potassium, serum 4.8 mmol/L 3.5-5.2 chloride, serum [...] Panel - Chemistry cholesterol, serum 165 mg/dL 041-852 0683/05/12 triglyceride, serum, fasting 524 mg/dL 30-200 HDL cholesterol, serum 24 mg/dL 32-96 cholesterol, serum 181 mg/dL 603-107 1808/09/01 triglyceride, serum, fasting 341 mg/dL 30-200 HDL [...] negative Encounters Code Encounter Date Provider Facility CPT-97181 Level 3 Est. Patient 21:00:18 SERGING MACHINE OPERATOR Rajni danielson [facility] CPT-50757 Level 3 Est. Patient 14:15:00 SERGING MACHINE OPERATOR Kalpesh goins MD [facility] CPT-64054 Level 2 Est. Patient 19:57:52 SERGING MACHINE OPERATOR Rajni danielson [facility] CPT-18120 Level 3 Est. Patient 16:58:40 SERGING MACHINE OPERATOR Bj funes MD [facility] CPT-13179 Level 3 Est. Patient 08:51:33 CDT Kalpesh goins MD [facility] CPT-64713 Level 4 Est. Patient 14:14:53 CDT Abdirahman Rios MD [facility] CPT-37083 Level 3 Est. Patient 15:47:40 CDT Kalpesh goins MD [facility] CPT-23506 Level 3 Est. Patient 10:57:26 CDT Abdirahman Rios MD [facility] CPT-19116 Level 3 Est. Patient 14:29:53 CDT Abhinav Galvan MD [facility] CPT-15577 Level 2 Est. Patient 16:33:01 CDT Kalpesh goins MD [facility] CPT-12841 Level 4 Est. Patient 16:44:56 CDT Abdirahman Rios MD [facility] CPT-31671 Level 2 Est. Patient 07:49:32 CDT Kalpesh goins MD [facility] CPT-94569 Level 3 New Patient 15:47:11 SERGING MACHINE OPERATOR Bj huber MD [facility] CPT-73775 Level 4 Est. Patient 14:37:38 SERGING MACHINE OPERATOR Abdirahman Rios MD [facility] CPT-28152 Level 2 Est. Patient 13:32:17 SERGING MACHINE OPERATOR Kalpesh goins MD [facility] CPT-61912 Level 3 Est. Patient 17:32:57 SERGING MACHINE OPERATOR Edilberto tiwari DO [facility] CPT-42304 Level 3 Est. Patient 17:22:33 SERGING MACHINE OPERATOR Edilberto tiwari [facility] CPT-51860 Level 2 Est. Patient 16:57:09 SERGING MACHINE OPERATOR Kalpesh goins MD [facility] CPT-72756 Level 3 Est. Patient 14:03:08 SERGING MACHINE OPERATOR Abdirahman Rios MD [facility] CPT-04464 Level 3 Est. Patient 18:12:34 CDT Shola Wright [facility] CPT-36390 Level 3 Est. Patient 19:34:46 CDT Shola Wright [facility] CPT-12428 Level 3 Est. Patient 14:19:37 CDT Abdirahman Rios MD [facility] CPT-84768 Level 3 Est. Patient 14:11:58 CDT Kalpesh goins MD [facility]-06321 Level 3 Est. Patient 16:50:00 CDT Michelle MERCADO [facility] CPT-11928 Level 3 Est. Patient 17:11:32 SERGING MACHINE OPERATOR Brandie bates MD PhD [facility] CPT-95544 Level 3 Est. Patient 16:31:47 SERGING MACHINE OPERATOR Shola Wright [facility] CPT-82571 Level 3 Est. Patient 17:51:10 SERGING MACHINE OPERATOR Abhinav Galvan MD [facility] CPT-69774 Level 4 Est. Patient 12:54:56 SERGING MACHINE OPERATOR Kalpesh goins MD [facility]-14384 Level 4 Est. Patient 12:53:56 SERGING MACHINE OPERATOR Kalpesh goins MD [facility]-64689 Level 3 Est. Patient 17:56:58 CDT Shola Wright [facility] CPT-99610 Level 3 Est. Patient 14:26:20 CDT Janak butcher [facility] CPT-89757 Level 3 Est. Patient 09:38:41 CDT Shola Thao Adriana [facility] CPT-84438 Level 3 Est. Patient 14:45:26 CDT Edilberto tiwari [facility] CPT-69856 Level 3 Est. Patient 10:51:33 CDT Hira muniz [facility] CPT-60792 Level 3 Est. Patient 11:57:55 SERGING MACHINE OPERATOR Shola Thao Adriana [facility] CPT-54592 Level 3 Est. Patient 09:53:33 SERGING MACHINE OPERATOR Edilberto tiwari [facility] CPT-88206 Level 3 Est. Patient 14:42:54 SERGING MACHINE OPERATOR Abhinav Galvan MD [facility]-57636 Level 3 Est. Patient 15:10:02 CDT Janak butcher [facility] CPT-39274 Level 3 Est. Patient 15:20:20 CDT Theo dennis MD [facility] CPT-98997 Level 2 Est. Patient 14:08:57 CDT Kalpesh goins MD [facility] CPT-57494 Level 3 Est. Patient 13:56:19 CDT Abdirahman Rios MD [facility] CPT-25434 Level 3 Est. Patient 13:59:37 CDT Abdirahman Rios MD [facility] CPT-49267 Level 2 Est. Patient 14:44:59 CDT Kalpesh goins MD [facility]-83201 Level 3 Est. Patient 06:06:23 CDT Edilberto tiwari [facility] CPT-60857 Level 3 Est. Patient 15:23:54 CDT Abdirahman Rios MD [facility] CPT-73763 Level 3 Est. Patient 15:43:49 CDT Abdirahman Rios MD [facility] CPT-55748 Level 3 Est. Patient 12:46:47 SERGING MACHINE OPERATOR Abdirahman Rios MD [facility] CPT-04635 Level 3 Est. Patient 08:13:35 SERGING MACHINE OPERATOR Abdirahman Rios MD [facility] CPT-51518 Level 2 Est. Patient 09:36:42 SERGING MACHINE OPERATOR Abdirahman Rios MD [facility] CPT-38319 Level 3 Est. Patient 10:56:43 CDT Abdirahman Rios MD [facility] CPT-02132 Level 3 Est. Patient 18:24:52 CDT Abdirahman Rios MD [facility] CPT-50085 Level 3 Est. Patient 13:27:22 CDT Abdirahman Rios MD [facility] Procedures Code Procedure Name Date Entry Date Standard Desc ription CPT-41932 Postop F/U Visit 15:18:16 SERGING MACHINE OPERATOR CPT-39287 Postop F/U Visit 15:03:49 SERGING MACHINE OPERATOR CPT-96719 Postop F/U Visit 14:45:23 SERGING MACHINE OPERATOR CPT-41487 Postop F/U Visit 14:11:03 SERGING MACHINE OPERATOR CPT-74489 Postop F/U Visit 18:21:21 SERGING MACHINE OPERATOR CPT-70812 Postop F/U Visit 15:57:12 SERGING MACHINE OPERATOR CPT-80390 Bladder Instillation 16:58:41 SERGING MACHINE OPERATOR 6 CPT-79722 Fluzone Quadrivalent Intramuscular Suspe nsion 0.5 ML 15:20:56 SERGING MACHINE OPERATOR CPT-67016 Immunization Single Admin 15:20:56 SERGING MACHINE OPERATOR 2014 CPT-18046 Excis pilonidal cyst simple 08:51:34 CDT 20 22/04/20 CPT-93460 Venipuncture Draw Fee 14:27:29 CDT CPT-67742 Postop F/U Visit 15:27:43 CDT CPT-34636 Postop F/U Visit 14:40:59 CDT CPT-35011 Postop F/U Visit 15:02:46 CDT CPT-13486 Postop F/U Visit 11:29:00 SERGING MACHINE OPERATOR CPT-J0696 Rocephin 1000 mg (Ceftriaxone) 17:22:33 SERGING MACHINE OPERATOR CPT-92527 Postop F/U Visit 18:41:07 SERGING MACHINE OPERATOR CPT-04046 Postop F/U Visit 08:19:08 SERGING MACHINE OPERATOR CPT-56911 Immunization Single Admin 16:41:53 CDT 2013 CPT-88106 Fluzone Quadrivalent Intramuscular Suspe nsion 0.5 ML 16:41:53 CDT CPT-OV Office Visit 16:39:18 CDT CPT-OV Office Visit 16:16:36 CDT CPT-OV Office Visit 15:34:48 CDT CPT-13061 Postop F/U Visit 14:50:12 CDT CPT-58690 Postop F/U Visit 14:41:10 CDT CPT-22467 Venipuncture Draw Fee 11:38:04 SERGING MACHINE OPERATOR CPT-86052 Postop F/U Visit 19:02:59 SERGING MACHINE OPERATOR CPT-17517 Postop F/U Visit 12:04:54 SERGING MACHINE OPERATOR CPT-56762 Administration single or combination vac cine inc oral 15:56:43 CDT CPT-89198 Influenza split virus > age 3 15:56:43 CDT CPT-49388 Hand comp min 3V 14:25:19 CDT CPT-42818 Postop F/U Visit 21:40:51 CDT CPT-40810 Postop F/U Visit 10:58:43 CDT CPT-27148 Administration single or combination vac cine inc oral 12:33:54 SERGING MACHINE OPERATOR CPT-61532 Influenza Preservative Free split virus >age 3 12:33:54 SERGING MACHINE OPERATOR CPT-41184 Administration single or combination vac cine inc oral 09:30:51 CDT CPT-75070 Influenza split virus > age 3 09:30:51 CDT CPT-22249 Postop F/U Visit 15:14:53 CDT CPT-97947 Postop F/U Visit 13:50:14 CDT CPT-53651 Postop F/U Visit 13:34:52 CDT CPT-OV Office Visit 16:55:03 CDT CPT-12479 [place] of cervix w bx ECC 13:32:50 CDT 10/19 CPT-J1885 Toradol 60 mg (Ketorolac) 15:31:59 CDT 2011 CPT-J1885 Toradol 60 mg (Ketorolac) 15:23:54 CDT 2011 CPT-90933 Visit 11:34:37 SERGING MACHINE OPERATOR CPT-22105 Visit 10:52:39 SERGING MACHINE OPERATOR CPT-97450 Visit 10:12:02 SERGING MACHINE OPERATOR CPT-68568 Visit 11:22:43 SERGING MACHINE OPERATOR CPT-79557 Visit 11:24:12 SERGING MACHINE OPERATOR CPT-69244 Visit 10:47:05 SERGING MACHINE OPERATOR CPT-OV Office Visit 10:26:16 SERGING MACHINE OPERATOR CPT-OV Office Visit 15:34:31 SERGING MACHINE OPERATOR CPT-56445 Visit 10:42:08 SERGING MACHINE OPERATOR CPT-39042 Visit 10:52:45 SERGING MACHINE OPERATOR CPT-000 Give Appropriate Flu Vaccine 16:56:41 CDT 2 CPT-07101 Administration single or combination vac cine inc oral 10:33:21 CDT CPT-71263 Influenza split virus > age 3 10:33:21 CDT CPT-24408 Visit 13:23:09 CDT CPT-39404 Visit 18:24:52 CDT CPT-00297 Sono OB comp > 14 weeks 12:07:49 CDT 04/07
--- OUTSIDE RECORDS SUMMARY | 2020-01-18 15:56 | XMS REPORT | Clinical Summary ---
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 Abscess of anal and rectal regions [...] Provider Patient Instruction PERCOCET 10-325 MG TABS 1-2 q 4 hrs prn OXYCODO NE-ACETAMINOPHEN 02457985982 Active Kalpesh Dong MD Active TRAZODONE HCL 100 MG TAB 0.5 to 1 po qHS PRN Insomnia TRAZODONE HCL 32606165343 Active Abdirahman Rios MD Active CYMBALTA 30 MG CPEP 1 cap by mouth daily DULOXE CLEO HCL 63697405909 Active Abdirahman Rios MD Active EMLA 2.5-2.5 % EXT CREA apply to skin lesion q 6 hours, prn 2014 LIDOCAINE-PRILOCAINE 56550331786 No Longer Active Abdirahman Rios MD Active HYDROCODONE-ACETAMINOPHEN 5-325 MG TABS 1 po q6hr PRN pain HYDROCODONE-ACETAMINOPHEN 27851726609 Active Abdirahman Rios MD Active PERCOCET 10-325 MG ORAL TABS 1 every 4 hours as needed OXYCODONE-ACETAMINOPHEN 60751762591 No Longer Active Abdirahman Rios MD Active [id number] 50-325-40 MG ORAL CAPS 1-2 po TID MD N Headache [id number] 86598213567 Active Abdirahman Rios MD Active AUGMENTIN 875-125 MG TAB 1 tab by mouth twice daily with food 20 21/10/13 AMOXICILLIN-POT CLAVULANATE 07129534837 No Longer Active Ursula jasmina Frazell SALES DEPARTMENT CLERK Active PROAIR HFA 108 (90 BASE) MCG/ACT AERS 2 puff q 4-6 hrs PRN 01/24 ALBUTEROL SULFATE 33155708508 No Longer Active Kalpesh Dong MD Active ALPRAZOLAM 0.5 MG TABS 1 po BID PRN Anxiety ALPRA ZOLAM 79234468226 Active Abdirahman Rios MD Active CYCLOBENZAPRINE HCL 10 MG TABS 1 tablet by mouth three times daily as needed for muscle spasm/pain CYCLOBENZAPRINE HCL 50272974810 Active Abdirahman Rios MD Active PREDNISONE 20 MG TAB 2 tabs daily for 3 days, 1 t ab daily for 3 days, 1/2 tab daily for 2 days PREDNISONE 01048391344 No Longer Active Abdirahman Rios MD Active KEFLEX 500 MG CAP 1 po qid CEPHALEXIN 776767921 20 No Longer Active Kalpesh Dong MD Active PERCOCET 5-325 MG TAB 1 every 6 hours as needed OXYCODONE-ACETAMINOPHEN 21969440196 No Longer Active Shola MCGILL Active LC-5 LIDOCAINE 5 % CREA apply 1 time daily to affected area 2013 LIDOCAINE (ANORECTAL) 46679294602 No Longer Active Hira muniz SALES DEPARTMENT CLERK Active HYDROCODONE-ACETAMINOPHEN 10-325 MG TABS 1 by mouth ev chaka 8 hours as needed for pain HYDROCODONE-ACETAMINOPHEN 13911637173 No Longer Active Jillina Karmenl SALES DEPARTMENT CLERK Active LORATADINE 10 MG TABS 1 tablet by mouth daily L ORATADINE 79823775231 No Longer Active Jillina Frazell SALES DEPARTMENT CLERK Active DIFLUCAN 150 MG TAB 1 qODay x 2 doses FLUCONAZO LE 91513338415 No Longer Active Jillina Frazell SALES DEPARTMENT CLERK Active CYCLOBENZAPRINE HCL 10 MG TABS 1/2 - 1 tab PO tid PRN back p ain, muscle spasm CYCLOBENZAPRINE HCL 74842078256 No Longer Active Karen siri Karmenl SALES DEPARTMENT CLERK Active AUGMENTIN 875-125 MG TAB 1 tab by mouth twice daily with food 20 22/05/07 AMOXICILLIN-POT CLAVULANATE 17852465565 No Longer Active Mar tin W Dillow MD Active MOBIC 15 MG TABS 1 tab daily MELOXICAM 656479426 14 No Longer Active Abdirahman Rios MD Active PERCOCET 7.5-325 MG TABS 1 PO tid PRN pain OXYCODONE-ACETAMINOPHEN 47701459355 No Longer Active Abdirahman Rios MD Active LIDODERM 5 % PTCH One patch to painful area MD N. On for 12 hrs, off for 12 hrs. LIDOCAINE 63451499502 No Longer Active Abdirahman Rios MD Active PERCOCET 7.5-325 MG TABS 1 PO q 8 hrs PRN pain OXYCODONE-ACETAMINOPHEN 15216604540 No Longer Active Shola MCGILL Active HYDROCODONE-ACETAMINOPHEN 7.5-325 MG TABS 1 by mouth e very 6 hours as needed for pain HYDROCODONE-ACETAMINOPHEN 80649896978 No Longer Active Good Julian MD Active CLINDAMYCIN HCL 300 MG CAPS 1 po QID x 7 days CLINDAMYCIN HCL 97140142736 No Longer Active Abdirahman Rios MD Activ e BACTRIM DS 800-160 MG TABS 1 po BID x 7 days 5 SULFAMETHOXAZOLE-TRIMETHOPRIM 95207063789 No Longer Active Abdirahman Rios MD Active ENDOCET 10-325 MG TABS 1 q 6 hr prn OXYCODONE-ACETAMINOPHEN 35517305856 No Longer Active Abdirahman Rios MD Active IBUPROFEN 800 MG TABS 1 tid prn IBUPROFEN 319299 25875 No Longer Active Abdirahman Rios MD Active BACTRIM DS 800-160 MG TABS by mouth twice a day 11/05 SULFAMETHOXAZOLE-TRIMETHOPRIM 15188370034 No Longer Active Good Julian MD Active HYDROCODONE-ACETAMINOPHEN 7.5-325 MG TABS 1 four times a day as needed for pain HYDROCODONE-ACETAMINOPHEN 26241569036 No Longer Activ e Good Julian MD Active KEFLEX 500 MG CAP 1 tab po tid CEPHALEXIN 895863 26479 No Longer Active Hira Moser APRN Active IBUPROFEN 800 MG TAB 1 pill three times daily as needed for pain IBUPROFEN 42579843752 No Longer Active Kalpesh Dong MD Active PROMETHAZINE-CODEINE 6.25-10 MG/5ML SYRP 1 tsp every 6 hrs prn c ough PROMETHAZINE-CODEINE 62149474588 No Longer Active Kalpesh Carr Active HYDROCODONE-ACETAMINOPHEN 5-325 MG TABS 1 tab by mouth every 6 hours as needed HYDROCODONE-ACETAMINOPHEN 59162051792 No Longer Activ e Shola MCGILL Active CEPHALEXIN 500 MG CAPS 1 PO bid x 7 days CEPHAL EXIN 51837997354 No Longer Active Shola MCGILL Active BACTRIM DS 800-160 MG TAB 1 tab by mouth twice daily 2 TRIMETHOPRIM-SULFAMETHOXAZOLE 43662969205 No Longer Active Kalpesh Dong MD Active HYDROCODONE-ACETAMINOPHEN 5-325 MG TABS 1 PO tid PRN pain 5 HYDROCODONE-ACETAMINOPHEN 47765770921 No Longer Active Abhinav Galvan MD Active IMPLANON 68 MG IMPL IMPLANTED IN LEFT ARM ETONO GESTREL 30588588142 No Longer Active Hira Moser APRN Active AMOXICILLIN 500 MG TABS 2 tabs PO bid x 10 d AM OXICILLIN 90124006056 No Longer Active Kalpesh Dong MD Active LEVAQUIN 500 MG TABS 1 PO q day x 7 days LEVOFL OXACIN 33349765021 No Longer Active Shola MCGILL Active AMITRIPTYLINE HCL 25 MG TAB 1 tab by mouth daily 60 minutes before bedtime AMITRIPTYLINE HCL 46842075843 No Longer Active Shola MCGILL Active LORTAB 5 5-500 MG TABS 1/2 to 1 tablet by mouth go ry 6 hours as needed for pain HYDROCODONE-ACETAMINOPHEN 01125944866 No Longer Active Shola MCGILL Active CEPHALEXIN 500 MG TABS Take one by mouth four times daily, morning, noon, early evening and bedtime. CEPHALEXIN 23186460311 No Long er Active Hira Moser APRN Active TYLENOL/CODEINE #3 300-30 MG TAB 1-2 po q6hr PRN Pain ACETAMINOPHEN-CODEINE 87996608720 No Longer Active Edilberto Marino DO Active PRISTIQ 50 MG [id number] 1 po qd DESVENLAFAXI NE SUCCINATE 96231622453 No Longer Active Edilberto Marino DO Active PENICILLIN V POTASSIUM 500 MG TAB 1 four times a day 2 PENICILLIN V POTASSIUM 64519919825 No Longer Active Edilberto Marino DO Active DOXYCYCLINE HYCLATE 100 MG CAPS Take one (1) tablet by mouth twice a day DOXYCYCLINE HYCLATE 68739533349 No Longer Active Ronnie Galvan MD Active HYDROCODONE-ACETAMINOPHEN 5-325 MG TABS 1 po q 6hr PRN Pain 2011 HYDROCODONE-ACETAMINOPHEN 11321112786 No Longer Active Jerson Perez RN Active BACTRIM DS 800-160 MG TAB 1 tab by mouth twice daily 2 TRIMETHOPRIM-SULFAMETHOXAZOLE 89009359322 No Longer Active Kalpesh Dong MD Active LORTAB 5 5-500 MG TABS 1/2 to 1 tablet by mouth go ry 4 hours as needed for pain HYDROCODONE-ACETAMINOPHEN 05476965640 No Longer Active Kalpesh Dong MD Active GENERESS FE 0.8-25 MG-MCG CHEW Take one by mouth daily NORETHIN-ETH ESTRADIOL-FE 00303111712 No Longer Active Kalpesh Dong MD Active HYDROCODONE-ACETAMINOPHEN 7.5-500 MG TABS 1-2 every 4 hours as needed HYDROCODONE-ACETAMINOPHEN 57367553896 No Longer Activ e Kalpesh Dong MD Active FERROUS SULFATE 325 (65 FE) MG TABS 1 tablet by mouth twice yung y FERROUS SULFATE 78176600587 No Longer Active Kalpesh Dong MD Active IBUPROFEN 600 MG TAB 1 po q6-8hr PRN IBUPROFEN 17392898170 No Longer Active Kalpesh Dong MD Active SPIRONOLACTONE 25 MG TAB 1 tablet by mouth daily 01/22 SPIRONOLACTONE 20420554879 No Longer Active Kalpesh Dong MD Acti ve HYDROCODONE-ACETAMINOPHEN 7.5-325 MG TABS 1 po QID PRN Pain 2011 HYDROCODONE-ACETAMINOPHEN 31893963088 No Longer Active Kalpesh Dong MD Active CLINDAMYCIN HCL 300 MG CAPS 1 po q6hr x 7 days CLINDAMYCIN HCL 04394521271 No Longer Active Edilberto Marino DO Active PREDNISONE 20 MG TAB 2 tabs daily for 4 days, 1 t ab daily for 4 days, 1/2 tab daily for 4 days PREDNISONE 27870851148 No Longer Active Edilberto Marino DO Active PERCOCET 5-325 MG TABS 1 tablet by mouth every 6 hours as ne eded for pain OXYCODONE-ACETAMINOPHEN 23896107027 No Longer Active Abdirahman Rios MD Active VITAMINS TABS Take one by mouth daily MV & MIN W/FE-FA TABS 18379782103 No Longer Active Abdirahman Rios MD Active LUIS 3-0.02 MG TABS 1 tablet by mouth daily as directed DROSPIRENONE-ETHINYL ESTRADIOL 54524022339 No Longer Active Abdirahman Rios MD Active LORATADINE 10 MG TABS 1 tablet by mouth daily L ORATADINE 66445983239 No Longer Active Kalpesh Dong MD Active HYDROCODONE-ACETAMINOPHEN 5-325 MG TABS 1 po q 6hr PRN Pain 2010 HYDROCODONE-ACETAMINOPHEN 32416186345 No Longer Active Edilberto Marino DO Active BACTRIM DS 800-160 MG TAB 1 tab by mouth twice daily 2 TRIMETHOPRIM-SULFAMETHOXAZOLE 66238490625 No Longer Active Abdirahman Rios MD Active 28-0.8 MG TABS Take one by mouth daily 09/20 VIT-FE FUMARATE-FA 05572062950 No Longer Active Abdirahman Rios MD Active CIPRO 500 MG TAB 1 tablet by mouth twice daily CIPROFLOXACIN HCL 67498813456 No Longer Active Abdirahman Rios MD Active BENADRYL 25 MG CAP 1 po q8hr PRN Congestion DIPHENHYDRAMINE HCL 62905079748 No Longer Active Abdirahman Rios MD Active ZOLOFT 50 MG TAB 1 po qd SERTRALINE HCL 629391 76293 No Longer Active Abdirahman Rios MD Active AMOXICILLIN 875 MG TABS 1 tab by mouth twice daily 201 08/09/13 AMOXICILLIN 19204016568 No Longer Active Abdirahman Rios MD Activ e AMOXICILLIN 875 MG TABS 1 tab by mouth twice daily 201 07/19/27 AMOXICILLIN 64403912356 No Longer Active Abdirahman Rios MD Activ e BACTRIM DS 800-160 MG TAB 2 tab by mouth twice daily 2 TRIMETHOPRIM-SULFAMETHOXAZOLE 88940909706 No Longer Active Abdirahman Rios MD Active KEFLEX 500 MG CAP 1 po tid x 10 days CEPHALEXIN 90101261713 No Longer Active Abdirahman Rios MD Active AMOXICILLIN 875 MG TABS 1 tab by mouth twice daily 201 07/18/07 AMOXICILLIN 86828673748 No Longer Active Abdirahman Rios MD Activ e BACTRIM DS 800-160 MG TAB 2 tab by mouth twice daily 2 BACTRIM DS 800-160 MG TAB TRIMETHOPRIM-SULFAMETHOXAZOLE Inactive ZOLOFT 50 MG TAB 1 po qd ZOLOFT 50 MG TAB 3129 41 SERTRALINE HCL Inactive BENADRYL 25 MG CAP 1 po q8hr PRN Congestion BENADRYL 25 MG CAP 1903425 DIPHENHYDRAMINE HCL Inactive 28-0.8 MG TABS Take one by mouth daily 09/20 28-0.8 MG TABS VIT-FE FUMARATE-FA Inactive HYDROCODONE-ACETAMINOPHEN 5-325 MG TABS 1 po q 6hr PRN Pain 2010 HYDROCODONE-ACETAMINOPHEN 5-325 MG TABS 545472 HYDROCODONE-ACETAMINOPHEN Inactive LORATADINE 10 MG TABS 1 tablet by mouth daily LORATADINE 10 MG TABS 969702 LORATADINE Inactive LUIS 3-0.02 MG TABS 1 tablet by mouth daily as directed LUIS 3-0.02 MG TABS DROSPIRENONE-ETHINYL ESTRADIOL Inactive VITAMINS TABS Take one by mouth daily VITAMINS TABS MV & MIN W/FE-FA TABS Inactive PERCOCET 5-325 MG TABS 1 tablet by mouth every 6 hours as ne eded for pain PERCOCET 5-325 MG TABS 0203004 OXYCODONE-ACETAMIN OPHEN Inactive PREDNISONE 20 MG TAB 2 tabs daily for 4 days, 1 t ab daily for 4 days, 1/2 tab daily for 4 days PREDNISONE 20 MG TAB 026286 PREDNISON E Inactive CLINDAMYCIN HCL 300 MG CAPS 1 po q6hr x 7 days CLINDAMYCIN HCL 300 MG CAPS 798253 CLINDAMYCIN HCL Inactive HYDROCODONE-ACETAMINOPHEN 7.5-325 MG TABS 1 po QID PRN Pain 2011 HYDROCODONE-ACETAMINOPHEN 7.5-325 MG TABS 606838 HYDROCODONE-ACETAMINOPHEN Inactive SPIRONOLACTONE 25 MG TAB 1 tablet by mouth daily 01/22 SPIRONOLACTONE 25 MG TAB 851537 SPIRONOLACTONE Inactive IBUPROFEN 600 MG TAB 1 po q6-8hr PRN IBUPROFEN 600 MG TAB 042361 IBUPROFEN Inactive FERROUS SULFATE 325 (65 FE) MG TABS 1 tablet by mouth twice yung y FERROUS SULFATE 325 (65 FE) MG TABS 191038 FERROUS SULF ATE Inactive HYDROCODONE-ACETAMINOPHEN 7.5-500 MG TABS 1-2 every 4 hours as needed HYDROCODONE-ACETAMINOPHEN 7.5-500 MG TABS HYDROCODONE-ACETAMINOPHEN Inactive GENERESS FE 0.8-25 MG-MCG CHEW Take one by mouth daily GENERESS FE 0.8-25 MG-MCG CHEW 0143163 NORETHIN-ETH ESTRADIOL-FE Inactive LORTAB 5 5-500 MG [...] PRN Pain 2011 HYDROCODONE-ACETAMINOPHEN 5-325 MG TABS 011463 HYDROCODONE-ACETAMINOPHEN Inactive DOXYCYCLINE HYCLATE 100 MG CAPS Take one (1) tablet by mouth twice a day DOXYCYCLINE HYCLATE 100 MG CAPS 942916 DOXYCYCLINE HYCLATE Inactive PENICILLIN V POTASSIUM 500 MG TAB 1 four times a day 2 PENICILLIN V POTASSIUM 500 MG TAB 994321 PENICILLIN V POTASSIUM Siri ctive PRISTIQ 50 MG [id number] 1 po qd PRISTIQ 50 MG [id number] DESVENLAFAXINE SUCCINATE Inactive TYLENOL/CODEINE #3 300-30 MG TAB 1-2 po q6hr PRN Pain TYLENOL/CODEINE #3 300-30 MG TAB 614113 ACETAMINOPHEN-CODEINE Inact krishna CEPHALEXIN 500 MG TABS Take one by mouth four times daily, morning, noon, early evening and bedtime. CEPHALEXIN 500 MG TABS 841120 CEPHALEXIN Inactive LORTAB 5 5-500 MG TABS 1/2 to 1 tablet by mouth go ry 6 hours as needed for pain LORTAB 5 5-500 MG TABS HYDROCODONE-A CETAMINOPHEN Inactive AMITRIPTYLINE HCL 25 MG TAB 1 tab by mouth daily 60 minutes before bedtime AMITRIPTYLINE HCL 25 MG TAB 467835 AMITRIPTYLINE HCL Inactive AMOXICILLIN 500 MG TABS 2 tabs PO bid x 10 d 7 AMOXICILLIN 500 MG TABS 187132 AMOXICILLIN Inactive IMPLANON 68 MG IMPL IMPLANTED IN LEFT ARM IMPLANON 68 MG IMPL ETONOGESTREL Inactive HYDROCODONE-ACETAMINOPHEN 5-325 MG TABS 1 PO tid PRN pain 5 HYDROCODONE-ACETAMINOPHEN 5-325 MG TABS 035778 HYDROCODONE-ACETAMIN OPHEN Inactive BACTRIM DS 800-160 MG TAB 1 tab by mouth twice daily 2 BACTRIM DS 800-160 MG TAB TRIMETHOPRIM-SULFAMETHOXAZOLE Inac tive CEPHALEXIN 500 MG CAPS 1 PO bid x 7 days CEPHALEXIN 500 MG CAPS 762750 CEPHALEXIN Inactive HYDROCODONE-ACETAMINOPHEN 5-325 MG TABS 1 tab by mouth every 6 hours as needed HYDROCODONE-ACETAMINOPHEN 5-325 MG TABS 150128 HYDROCODONE-ACETAMINOPHEN Inactive PROMETHAZINE-CODEINE 6.25-10 MG/5ML SYRP 1 tsp every 6 hrs prn c ough PROMETHAZINE-CODEINE 6.25-10 MG/5ML SYRP 324827 PROMETH AZINE-CODEINE Inactive IBUPROFEN 800 MG TAB 1 pill three times daily as needed for pain IBUPROFEN 800 MG TAB 206534 IBUPROFEN Inactive KEFLEX 500 MG CAP 1 tab po tid KEFLEX 500 MG CAP 112805 CEPHALEXIN Inactive HYDROCODONE-ACETAMINOPHEN 7.5-325 MG TABS 1 four times a day as needed for pain HYDROCODONE-ACETAMINOPHEN 7.5-325 MG TABS 848194 HYDROCODONE-ACETAMINOPHEN Inactive BACTRIM DS 800-160 MG TABS by mouth twice a day 11/05 BACTRIM DS 800-160 MG TABS SULFAMETHOXAZOLE-TRIMETHOPRIM Inactive IBUPROFEN 800 MG TABS 1 tid prn IBUPROFEN 800 MG TABS 581136 IBUPROFEN Inactive ENDOCET 10-325 MG TABS 1 q 6 hr prn ENDOC ET 10-325 MG TABS 7687224 OXYCODONE-ACETAMINOPHEN Inactive HYDROCODONE-ACETAMINOPHEN 7.5-325 MG TABS 1 by mouth e very 6 hours as needed for pain HYDROCODONE-ACETAMINOPHEN 7.5-325 MG TABS 255024 HYDROCODONE-ACETAMINOPHEN Inactive PERCOCET 7.5-325 MG TABS 1 PO q 8 hrs PRN pain PERCOCET 7.5-325 MG TABS 6850007 OXYCODONE-ACETAMINOPHEN Inactive LIDODERM 5 % PTCH One patch to painful area MD N. On for 12 hrs, off for 12 hrs. LIDODERM 5 % PTCH 3519049 LIDOCAINE Inactiv e PERCOCET 7.5-325 MG TABS 1 PO tid PRN pain PERCOCET 7.5- 325 MG TABS 6426584 OXYCODONE-ACETAMINOPHEN Inactive MOBIC 15 MG TABS 1 tab daily MOBIC 15 MG TABS 15 2695 MELOXICAM Inactive CYCLOBENZAPRINE HCL 10 MG TABS 1/2 - 1 tab PO tid PRN back p ain, muscle spasm CYCLOBENZAPRINE HCL 10 MG TABS 463815 CYCLOBENZA JOSEPH HCL Inactive LORATADINE 10 MG TABS 1 tablet by mouth daily LORATADINE 10 MG TABS 218625 LORATADINE Inactive HYDROCODONE-ACETAMINOPHEN 10-325 MG TABS 1 by mouth ev chaka 8 hours as needed for pain HYDROCODONE-ACETAMINOPHEN 10-325 MG TABS 851894 HYDROCODONE-ACETAMINOPHEN Inactive LC-5 LIDOCAINE 5 % CREA apply 1 time daily to affected area 2013 LC-5 LIDOCAINE 5 % CREA LIDOCAINE (ANORECTAL) In active PERCOCET 5-325 MG TAB 1 every 6 hours as needed PERCOCET 5-325 MG TAB 8959859 OXYCODONE-ACETAMINOPHEN Inactive KEFLEX 500 MG CAP 1 po qid KEFLEX 500 MG CAP 30 9114 CEPHALEXIN Inactive PROAIR HFA 108 (90 BASE) MCG/ACT AERS 2 puff q 4-6 hrs PRN 01/24 PROAIR HFA 108 (90 BASE) MCG/ACT AERS ALBUTEROL SULFATE Inactive PERCOCET 10-325 MG ORAL TABS 1 every 4 hours as needed PERCOCET 10-325 MG ORAL TABS 8404221 OXYCODONE-ACETAMINOPHEN Inactiv e EMLA 2.5-2.5 % EXT CREA apply to skin lesion q 6 hours, prn 2014 EMLA 2.5-2.5 % EXT CREA 012409 LIDOCAINE-PRILOCAINE [place] ctive AMOXICILLIN 875 MG TABS 1 tab by mouth twice daily 201 07/18/07 AMOXICILLIN 875 MG TABS 332795 AMOXICILLIN Inactive KEFLEX 500 MG CAP 1 po tid x 10 days KEFLEX 500 MG CAP 461358 CEPHALEXIN Inactive AMOXICILLIN 875 MG TABS 1 tab by mouth twice daily 201 07/19/27 AMOXICILLIN 875 MG TABS 554460 AMOXICILLIN Inactive AMOXICILLIN 875 MG TABS 1 tab by mouth twice daily 201 08/09/13 AMOXICILLIN 875 MG TABS 278118 AMOXICILLIN Inactive CIPRO 500 MG TAB 1 tablet by mouth twice daily CIPRO 500 MG TAB 775469 CIPROFLOXACIN HCL Inactive BACTRIM DS 800-160 MG TAB 1 tab by mouth twice daily 2 BACTRIM DS 800-160 MG TAB TRIMETHOPRIM-SULFAMETHOXAZOLE Inac tive LEVAQUIN 500 MG TABS 1 PO q day x 7 days LEVAQUIN 500 MG TABS 307749 LEVOFLOXACIN Inactive CLINDAMYCIN HCL 300 MG CAPS 1 po QID x 7 days CLINDAMYCIN HCL 300 MG CAPS 417947 CLINDAMYCIN HCL Inactive AUGMENTIN 875-125 MG TAB 1 tab by mouth twice daily with food 20 22/05/07 AUGMENTIN 875-125 MG TAB 478912 AMOXICILLIN-POT CLAVULA [place] Inactive DIFLUCAN 150 MG TAB 1 qODay x 2 doses DIFLUCAN 150 MG TAB 581241 FLUCONAZOLE Inactive PREDNISONE 20 MG TAB 2 tabs daily for 3 days, 1 t ab daily for 3 days, 1/2 tab daily for 2 days PREDNISONE 20 MG TAB 789297 PREDNISON E Inactive AUGMENTIN 875-125 MG TAB 1 tab by mouth twice daily with food 20 21/10/13 AUGMENTIN 875-125 MG TAB 853476 AMOXICILLIN-POT CLAVULA [place] Inactive Advance Directives Directive Description Start Date PERMISSION TO SHARE Immunizations Vaccine Administration Date Value Standard Alf cription Seasonal influenza vaccine, injectable, containing preservative, for > 3 years old (Afluria, FluLaval, Fluzone, Fluvirin, Fluarix, Agriflu(>= 18 yo)) Fluzone (>3 yrs.) [[id number]] Influenza, seasonal, inject able Seasonal influenza vaccine, injectable, preservative free, for > 3 years old (Afluria, FluLaval, Fluzone, Fluvirin, Fluarix, Agriflu(>= 18 yo)) Fluzone preservative free (>3 yrs.) [[id number]] Influenza, seasonal, injectable, preservative free Seasonal influenza vaccine, injectable, containing preservative, for > 3 years old (Afluria, FluLaval, Fluzone, Fluvirin, Fluarix, Agriflu(>= 18 yo)) Fluzone (>3 yrs.) [[id number]] Influenza, seasonal, inject able Seasonal influenza vaccine, injectable, containing preservative, for > 3 years old (Afluria, FluLaval, Fluzone, Fluvirin, Fluarix, Agriflu(>= 18 yo)) Fluzone (>3 yrs.) [[id number]] Influenza, seasonal, inject able dT (Diphtheria and [...] Panel - Chemistry sodium, serum 142 mmol/L 031-288 1280/05/12 potassium, serum 4.8 mmol/L 3.5-5.2 chloride, serum [...] Panel - Chemistry cholesterol, serum 165 mg/dL 545-937 9778/05/12 triglyceride, serum, fasting 524 mg/dL 30-200 HDL [...] negative Encounters Code Encounter Date Provider Facility CPT-76385 Level 2 Est. Patient 16:33:01 CDT Kalpesh goins MD [facility] CPT-72705 Level 4 Est. Patient 16:44:56 CDT Abdirahman Rios MD [facility] CPT-60627 Level 2 Est. Patient 07:49:32 CDT Kalpesh goins MD [facility] CPT-51674 Level 3 New Patient 15:47:11 PUFF IRONER Bj huber MD [facility]-71949 Level 4 Est. Patient 14:37:38 PUFF IRONER Abdirahman Rios MD [facility] CPT-63787 Level 2 Est. Patient 13:32:17 PUFF IRONER Kalpesh goins MD [facility]-35793 Level 3 Est. Patient 17:32:57 PUFF IRONER Edilberto tiwari DO [facility] CPT-30493 Level 3 Est. Patient 17:22:33 PUFF IRONER Edilberto tiwari DO [facility] CPT-68382 Level 2 Est. Patient 16:57:09 PUFF IRONER Kalpesh goins MD [facility]-62322 Level 3 Est. Patient 14:03:08 PUFF IRONER Abdirahman Rios MD [facility] CPT-53334 Level 3 Est. Patient 18:12:34 CDT Shola Wright [facility] CPT-32223 Level 3 Est. Patient 19:34:46 CDT Shola Wright [facility] CPT-15126 Level 3 Est. Patient 14:19:37 CDT Abdirahman Rios MD [facility]-13100 Level 3 Est. Patient 14:11:58 CDT Kalpesh goins MD [facility]-96103 Level 3 Est. Patient 16:50:00 CDT Michelle MERCADO [facility] CPT-59148 Level 3 Est. Patient 17:11:32 PUFF IRONER Brandie bates MD PhD [facility] CPT-03594 Level 3 Est. Patient 16:31:47 PUFF IRONER Shola Wright [facility] CPT-47908 Level 3 Est. Patient 17:51:10 PUFF IRONER Abhinav Galvan MD [facility] CPT-29827 Level 4 Est. Patient 12:54:56 PUFF IRONER Kalpesh goins MD [facility] CPT-46128 Level 4 Est. Patient 12:53:56 PUFF IRONER Kalpesh goins MD [facility] CPT-02866 Level 3 Est. Patient 17:56:58 CDT Shola Wright [facility] CPT-41562 Level 3 Est. Patient 14:26:20 CDT Janak butcher [facility] CPT-26993 Level 3 Est. Patient 09:38:41 CDT Shola Thao [facility] CPT-93183 Level 3 Est. Patient 14:45:26 CDT Edilberto tiwari [facility] CPT-71798 Level 3 Est. Patient 10:51:33 CDT Hira muniz [facility] CPT-87381 Level 3 Est. Patient 11:57:55 PUFF IRONER Shola Thao Adriana [facility] CPT-85441 Level 3 Est. Patient 09:53:33 PUFF IRONER Edilberto tiwari [facility] CPT-70918 Level 3 Est. Patient 14:42:54 PUFF IRONER Abhinav Galvan MD [facility] CPT-92279 Level 3 Est. Patient 15:10:02 CDT Janak butcher [facility] CPT-85767 Level 3 Est. Patient 15:20:20 CDT Theo dennis MD [facility] CPT-52509 Level 2 Est. Patient 14:08:57 CDT Kalpesh goins MD [facility] CPT-88873 Level 3 Est. Patient 13:56:19 CDT Abdirahman Rios MD [facility] CPT-25638 Level 3 Est. Patient 13:59:37 CDT Abdirahman Rios MD [facility] CPT-62191 Level 2 Est. Patient 14:44:59 CDT Kalpesh goins MD [facility] CPT-22698 Level 3 Est. Patient 06:06:23 CDT Edilberto tiwari DO [facility] CPT-90402 Level 3 Est. Patient 15:23:54 CDT Abdirahman Rios MD [facility] CPT-62031 Level 3 Est. Patient 15:43:49 CDT Abdirahman Rios MD [facility] CPT-43084 Level 3 Est. Patient 12:46:47 PUFF IRONER Abdirahman Rios MD [facility] CPT-05205 Level 3 Est. Patient 08:13:35 PUFF IRONER Abdirahman Rios MD [facility] CPT-15718 Level 2 Est. Patient 09:36:42 [employer] Abdirahman Rios MD [facility] CPT-49444 Level 3 Est. Patient 10:56:43 CDT Abdirahman Rios MD [facility] CPT-22625 Level 3 Est. Patient 18:24:52 CDT Abdirahman Rios MD [facility] CPT-62664 Level 3 Est. Patient 13:27:22 CDT Abdirahman Rios MD [facility] Procedures Code Procedure Name Date Entry Date Standard Desc ription CPT-49356 Postop F/U Visit 14:40:59 CDT CPT-80883 Postop F/U Visit 15:02:46 CDT CPT-24179 Postop F/U Visit 11:29:00 [employer] CPT-J0696 Rocephin 1000 mg (Ceftriaxone) 17:22:33 [employer] CPT-84284 Postop F/U Visit 18:41:07 [employer] CPT-69663 Postop F/U Visit 08:19:08 [employer] CPT-46103 Immunization Single Admin 16:41:53 CDT 2013 CPT-79301 Fluzone Quadrivalent Intramuscular Suspe nsion 0.5 ML 16:41:53 CDT CPT-OV Office Visit 16:39:18 CDT CPT-OV Office Visit 16:16:36 CDT CPT-OV Office Visit 15:34:48 CDT CPT-19710 Postop F/U Visit 14:50:12 CDT CPT-02975 Postop F/U Visit 14:41:10 CDT CPT-20741 Venipuncture Draw Fee 11:38:04 [employer] CPT-91172 Postop F/U Visit 19:02:59 PUFF IRONER CPT-35331 Postop F/U Visit 12:04:54 PUFF IRONER CPT-19630 Administration single or combination vac cine inc oral 15:56:43 CDT CPT-78997 Influenza split virus > age 3 15:56:43 CDT CPT-23549 Hand comp min 3V 14:25:19 CDT CPT-59887 Postop F/U Visit 21:40:51 CDT CPT-77602 Postop F/U Visit 10:58:43 CDT CPT-73866 Administration single or combination vac cine inc oral 12:33:54 PUFF IRONER CPT-62825 Influenza Preservative Free split virus >age 3 12:33:54 PUFF IRONER CPT-36545 Administration single or combination vac cine inc oral 09:30:51 CDT CPT-05945 Influenza split virus > age 3 09:30:51 CDT CPT-21872 Postop F/U Visit 15:14:53 CDT CPT-72234 Postop F/U Visit 13:50:14 CDT CPT-94220 Postop F/U Visit 13:34:52 CDT CPT-OV Office Visit 16:55:03 CDT CPT-43271 Wittman of cervix w bx ECC 13:32:50 CDT 10/19 CPT-J1885 Toradol 60 mg (Ketorolac) 15:31:59 CDT 2011 CPT-J1885 Toradol 60 mg (Ketorolac) 15:23:54 CDT 2011 CPT-00111 Visit 11:34:37 PUFF IRONER CPT-60740 Visit 10:52:39 PUFF IRONER CPT-12564 Visit 10:12:02 PUFF IRONER CPT-03616 Visit 11:22:43 PUFF IRONER CPT-66523 Visit 11:24:12 PUFF IRONER CPT-80723 Visit 10:47:05 PUFF IRONER CPT-OV Office Visit 10:26:16 PUFF IRONER CPT-OV Office Visit 15:34:31 PUFF IRONER CPT-02190 Visit 10:42:08 PUFF IRONER CPT-46009 Visit 10:52:45 PUFF IRONER CPT-000 Give Appropriate Flu Vaccine 16:56:41 CDT 2 CPT-47676 Administration single or combination vac cine inc oral 10:33:21 CDT CPT-73315 Influenza split virus > age 3 10:33:21 CDT CPT-15578 Visit 13:23:09 CDT CPT-03528 Visit 18:24:52 CDT CPT-52669 Sono OB comp > 14 weeks 12:07:49 CDT 04/07
--- OUTSIDE RECORDS SUMMARY | 2020-01-18 15:57 | XMS REPORT | Clinical Summary ---
Author Author Admin, Jeri Rashid Organization [facility] Address Unknown Phone Unavailable Allergies, Adverse Reactions, [...] NEC Abscess, perirectal 566 Active Hira roman DEFENSIVE LINE COACH Abscess of anal and rectal regions Hypertriglyceridemia 272.1 Active Abdirahman restrepo MD Pure hyperglyceridemia , INCIDENTAL PROBLEM ICD-V22.2 Inacti ve Abdirahman Rios MD LARGE FOR GESTATIONAL AGE ICD-656.60 Inactive Abdirahman Rios MD MASTALGIA ICD-611.71 Inactive Abdirahman aCrr BRONCHITIS NOT SPECIFIED ACUTE OR CHRONIC ICD-490 [...] wound of buttock, complicated ICD-877.1 I nactive Abdiramhan Rios MD Cellulitis and abscess of trunk [...] 1 po qHS PRN Insomnia TRAZODONE HCL 15614098867 Active Abdirahman Rios MD Active CYMBALTA 30 MG CPEP 1 cap by mouth daily DULOXE CLEO HCL 39545344840 Active Abdirahman Rios MD Active EMLA 2.5-2.5 % EXT CREA apply to skin lesion q 6 hours, prn 2014 LIDOCAINE-PRILOCAINE 43892170140 No Longer Active Abdirahman Rios MD Active HYDROCODONE-ACETAMINOPHEN 5-325 MG TABS 1 po q6hr PRN pain HYDROCODONE-ACETAMINOPHEN 79464678989 Active Abdirahman Rios MD Active PERCOCET 10-325 MG ORAL TABS 1 every 4 hours as needed OXYCODONE-ACETAMINOPHEN 03539021405 No Longer Active Abdirahman Rios MD Active [id number] 50-325-40 MG ORAL CAPS 1-2 po TID AL N Headache [id number] 90766996880 Active Abdirahman Rios MD Active AUGMENTIN 875-125 MG TAB 1 tab by mouth twice daily with food 20 21/10/13 AMOXICILLIN-POT CLAVULANATE 59442083130 No Longer Active Ursula jasmina Frazell DEFENSIVE LINE COACH Active PROAIR HFA 108 (90 BASE) MCG/ACT AERS 2 puff q 4-6 hrs PRN 01/24 ALBUTEROL SULFATE 60927049797 No Longer Active Kalpesh Dong MD Active ALPRAZOLAM 0.5 MG TABS 1 po BID PRN Anxiety ALPRA ZOLAM 69723409186 Active Abdirahman Rios MD Active CYCLOBENZAPRINE HCL 10 MG TABS 1 tablet by mouth three times daily as needed for muscle spasm/pain CYCLOBENZAPRINE HCL 91299348892 Active Abdirahman Rios MD Active PREDNISONE 20 MG TAB 2 tabs daily for 3 days, 1 t ab daily for 3 days, 1/2 tab daily for 2 days PREDNISONE 33392394871 No Longer Active Abdirahman Rios MD Active KEFLEX 500 MG CAP 1 po qid CEPHALEXIN 917298396 20 No Longer Active Kalpesh Dong MD Active PERCOCET 5-325 MG TAB 1 every 6 hours as needed OXYCODONE-ACETAMINOPHEN 85249028478 No Longer Active Shola MCGILL Active LC-5 LIDOCAINE 5 % CREA apply 1 time daily to affected area 2013 LIDOCAINE (ANORECTAL) 44051936694 No Longer Active Hira muniz DEFENSIVE LINE COACH Active HYDROCODONE-ACETAMINOPHEN 10-325 MG TABS 1 by mouth ev chaka 8 hours as needed for pain HYDROCODONE-ACETAMINOPHEN 16977172980 No Longer Active Jillina Frazell DEFENSIVE LINE COACH Active LORATADINE 10 MG TABS 1 tablet by mouth daily L ORATADINE 59577799869 No Longer Active Jillina Frazell DEFENSIVE LINE COACH Active DIFLUCAN 150 MG TAB 1 qODay x 2 doses FLUCONAZO LE 14549847674 No Longer Active Jillina Frazell DEFENSIVE LINE COACH Active CYCLOBENZAPRINE HCL 10 MG TABS 1/2 - 1 tab PO tid PRN back p ain, muscle spasm CYCLOBENZAPRINE HCL 53360650426 No Longer Active Karen siri Frazell DEFENSIVE LINE COACH Active AUGMENTIN 875-125 MG TAB 1 tab by mouth twice daily with food 20 22/05/07 AMOXICILLIN-POT CLAVULANATE 26234351430 No Longer Active Loida Rios MD Active MOBIC 15 MG TABS 1 tab daily MELOXICAM 281928969 14 No Longer Active Abdirahman Rios MD Active PERCOCET 7.5-325 MG TABS 1 PO tid PRN pain OXYCODONE-ACETAMINOPHEN 34409175929 No Longer Active Abdirahman Rios MD Active LIDODERM 5 % PTCH One patch to painful area AL N. On for 12 hrs, off for 12 hrs. LIDOCAINE 07565254060 No Longer Active Abdirahman Rios MD Active PERCOCET 7.5-325 MG TABS 1 PO q 8 hrs PRN pain OXYCODONE-ACETAMINOPHEN 23287755386 No Longer Active Shola MCGILL Active HYDROCODONE-ACETAMINOPHEN 7.5-325 MG TABS 1 by mouth e very 6 hours as needed for pain HYDROCODONE-ACETAMINOPHEN 23533218689 No Longer Active Good Julian MD Active CLINDAMYCIN HCL 300 MG CAPS 1 po QID x 7 days CLINDAMYCIN HCL 57760616790 No Longer Active Abdirahman Rios MD Activ e BACTRIM DS 800-160 MG TABS 1 po BID x 7 days 5 SULFAMETHOXAZOLE-TRIMETHOPRIM 17431515043 No Longer Active Abdirahman Rios MD Active ENDOCET 10-325 MG TABS 1 q 6 hr prn OXYCODONE-ACETAMINOPHEN 99721354796 No Longer Active Abdirahman Rios MD Active IBUPROFEN 800 MG TABS 1 tid prn IBUPROFEN 867424 72657 No Longer Active Abdirahman Rios MD Active BACTRIM DS 800-160 MG TABS by mouth twice a day 11/05 SULFAMETHOXAZOLE-TRIMETHOPRIM 87074460362 No Longer Active Good Julian MD Active HYDROCODONE-ACETAMINOPHEN 7.5-325 MG TABS 1 four times a day as needed for pain HYDROCODONE-ACETAMINOPHEN 28198248984 No Longer Activ crystal Julian MD Active KEFLEX 500 MG CAP 1 tab po tid CEPHALEXIN 070313 13186 No Longer Active Hira Moser APRN Active IBUPROFEN 800 MG TAB 1 pill three times daily as needed for pain IBUPROFEN 46893275028 No Longer Active Kalpesh Dong MD Active PROMETHAZINE-CODEINE 6.25-10 MG/5ML SYRP 1 tsp every 6 hrs prn c ough PROMETHAZINE-CODEINE 01722788920 No Longer Active Kalpesh Carr Active HYDROCODONE-ACETAMINOPHEN 5-325 MG TABS 1 tab by mouth every 6 hours as needed HYDROCODONE-ACETAMINOPHEN 00759816978 No Longer Activ e Shola MCGILL Active CEPHALEXIN 500 MG CAPS 1 PO bid x 7 days CEPHAL EXIN 38948539483 No Longer Active Shola MCGILL Active BACTRIM DS 800-160 MG TAB 1 tab by mouth twice daily 2 TRIMETHOPRIM-SULFAMETHOXAZOLE 45388167971 No Longer Active Kalpseh Dong MD Active HYDROCODONE-ACETAMINOPHEN 5-325 MG TABS 1 PO tid PRN pain 5 HYDROCODONE-ACETAMINOPHEN 58622420272 No Longer Active Abhinav Galvan MD Active IMPLANON 68 MG IMPL IMPLANTED IN LEFT ARM ETONO GESTREL 21418270112 No Longer Active Hira Moser APRN Active AMOXICILLIN 500 MG TABS 2 tabs PO bid x 10 d AM OXICILLIN 09679066231 No Longer Active Kalpesh Dong MD Active LEVAQUIN 500 MG TABS 1 PO q day x 7 days LEVOFL OXACIN 08668086600 No Longer Active Shola MCGILL Active AMITRIPTYLINE HCL 25 MG TAB 1 tab by mouth daily 60 minutes before bedtime AMITRIPTYLINE HCL 17571841171 No Longer Active Shola MCGILL Active LORTAB 5 5-500 MG TABS 1/2 to 1 tablet by mouth go ry 6 hours as needed for pain HYDROCODONE-ACETAMINOPHEN 88216358055 No Longer Active Shola MCGILL Active CEPHALEXIN 500 MG TABS Take one by mouth four times daily, morning, noon, early evening and bedtime. CEPHALEXIN 51830944522 No Long er Active Hira Moser APRN Active TYLENOL/CODEINE #3 300-30 MG TAB 1-2 po q6hr PRN Pain ACETAMINOPHEN-CODEINE 14514963430 No Longer Active Edilberto Marino DO Active PRISTIQ 50 MG [id number] 1 po qd DESVENLAFAXI NE SUCCINATE 89756124456 No Longer Active Edilberto Marino DO Active PENICILLIN V POTASSIUM 500 MG TAB 1 four times a day 2 PENICILLIN V POTASSIUM 64680427522 No Longer Active Edilberto Marino DO Active DOXYCYCLINE HYCLATE 100 MG CAPS Take one (1) tablet by mouth twice a day DOXYCYCLINE HYCLATE 21443585868 No Longer Active Ronnie Galvan MD Active HYDROCODONE-ACETAMINOPHEN 5-325 MG TABS 1 po q 6hr PRN Pain 2011 HYDROCODONE-ACETAMINOPHEN 43367885906 No Longer Active Patri joan Perez RN Active BACTRIM DS 800-160 MG TAB 1 tab by mouth twice daily 2 TRIMETHOPRIM-SULFAMETHOXAZOLE 14734423185 No Longer Active Kalpesh Dong MD Active LORTAB 5 5-500 MG TABS 1/2 to 1 tablet by mouth go ry 4 hours as needed for pain HYDROCODONE-ACETAMINOPHEN 20745018183 No Longer Active Kalpesh Dong MD Active GENERESS FE 0.8-25 MG-MCG CHEW Take one by mouth daily NORETHIN-ETH ESTRADIOL-FE 69904860484 No Longer Active Kalpesh Dong MD Active HYDROCODONE-ACETAMINOPHEN 7.5-500 MG TABS 1-2 every 4 hours as needed HYDROCODONE-ACETAMINOPHEN 98488969935 No Longer Activ e Kalpesh Dong MD Active FERROUS SULFATE 325 (65 FE) MG TABS 1 tablet by mouth twice yung y FERROUS SULFATE 90224572723 No Longer Active Kalpesh Dong MD Active IBUPROFEN 600 MG TAB 1 po q6-8hr PRN IBUPROFEN 70923746211 No Longer Active Kalpesh Dong MD Active SPIRONOLACTONE 25 MG TAB 1 tablet by mouth daily 01/22 SPIRONOLACTONE 63313724693 No Longer Active Kalpesh Dogn MD Acti ve HYDROCODONE-ACETAMINOPHEN 7.5-325 MG TABS 1 po QID PRN Pain 2011 HYDROCODONE-ACETAMINOPHEN 89009550475 No Longer Active Kalpesh Dong MD Active CLINDAMYCIN HCL 300 MG CAPS 1 po q6hr x 7 days CLINDAMYCIN HCL 48580918735 No Longer Active Edilberto Marino DO Active PREDNISONE 20 MG TAB 2 tabs daily for 4 days, 1 t ab daily for 4 days, 1/2 tab daily for 4 days PREDNISONE 44408625635 No Longer Active Edilberto Marino DO Active PERCOCET 5-325 MG TABS 1 tablet by mouth every 6 hours as ne eded for pain OXYCODONE-ACETAMINOPHEN 86986773121 No Longer Active Abdirahman Rios MD Active VITAMINS TABS Take one by mouth daily MV & MIN W/FE-FA TABS 18996474523 No Longer Active Abdirahman Rios MD Active LUIS 3-0.02 MG TABS 1 tablet by mouth daily as directed DROSPIRENONE-ETHINYL ESTRADIOL 74042840988 No Longer Active Abdirahman Rios MD Active LORATADINE 10 MG TABS 1 tablet by mouth daily L ORATADINE 48844674311 No Longer Active Kalpesh Dong MD Active HYDROCODONE-ACETAMINOPHEN 5-325 MG TABS 1 po q 6hr PRN Pain 2010 HYDROCODONE-ACETAMINOPHEN 00121047537 No Longer Active Edilberto Marino DO Active BACTRIM DS 800-160 MG TAB 1 tab by mouth twice daily 2 TRIMETHOPRIM-SULFAMETHOXAZOLE 24035704423 No Longer Active Abdirahman Rios MD Active 28-0.8 MG TABS Take one by mouth daily 09/20 VIT-FE FUMARATE-FA 75240862563 No Longer Active Abdirahman Rios MD Active CIPRO 500 MG TAB 1 tablet by mouth twice daily CIPROFLOXACIN HCL 95575935368 No Longer Active Abdirahman Rios MD Active BENADRYL 25 MG CAP 1 po q8hr PRN Congestion DIPHENHYDRAMINE HCL 60955933879 No Longer Active Abdirahman Rios MD Active ZOLOFT 50 MG TAB 1 po qd SERTRALINE HCL 889495 98647 No Longer Active Abdirahman Rios MD Active AMOXICILLIN 875 MG TABS 1 tab by mouth twice daily 201 08/09/13 AMOXICILLIN 45469260326 No Longer Active Abdirahman Rios MD Activ e AMOXICILLIN 875 MG TABS 1 tab by mouth twice daily 201 07/19/27 AMOXICILLIN 54840468071 No Longer Active Abdirahman Rios MD Activ e BACTRIM DS 800-160 MG TAB 2 tab by mouth twice daily 2 TRIMETHOPRIM-SULFAMETHOXAZOLE 61852909827 No Longer Active Abdirahman Rios MD Active KEFLEX 500 MG CAP 1 po tid x 10 days CEPHALEXIN 30164717747 No Longer Active Abdirahman Rios MD Active AMOXICILLIN 875 MG TABS 1 tab by mouth twice daily 201 07/18/07 AMOXICILLIN 05246384506 No Longer Active Abdirahman Rios MD Activ e BACTRIM DS 800-160 MG TAB 2 tab by mouth twice daily 2 BACTRIM DS 800-160 MG TAB TRIMETHOPRIM-SULFAMETHOXAZOLE Inactive ZOLOFT 50 MG TAB 1 po qd ZOLOFT 50 MG TAB 3129 41 SERTRALINE HCL Inactive BENADRYL 25 MG CAP 1 po q8hr PRN Congestion BENADRYL 25 MG CAP 7134789 DIPHENHYDRAMINE HCL Inactive 28-0.8 MG TABS Take one by mouth daily 09/20 28-0.8 MG TABS VIT-FE FUMARATE-FA Inactive HYDROCODONE-ACETAMINOPHEN 5-325 MG TABS 1 po q 6hr PRN Pain 2010 HYDROCODONE-ACETAMINOPHEN 5-325 MG TABS 931030 HYDROCODONE-ACETAMINOPHEN Inactive LORATADINE 10 MG TABS 1 tablet by mouth daily LORATADINE 10 MG TABS 688930 LORATADINE Inactive LUIS 3-0.02 MG TABS 1 tablet by mouth daily as directed LUIS 3-0.02 MG TABS DROSPIRENONE-ETHINYL ESTRADIOL Inactive VITAMINS TABS Take one by mouth daily VITAMINS TABS MV & MIN W/FE-FA TABS Inactive PERCOCET 5-325 MG TABS 1 tablet by mouth every 6 hours as ne eded for pain PERCOCET 5-325 MG TABS 2802893 OXYCODONE-ACETAMIN OPHEN Inactive PREDNISONE 20 MG TAB 2 tabs daily for 4 days, 1 t ab daily for 4 days, 1/2 tab daily for 4 days PREDNISONE 20 MG TAB 469029 PREDNISON E Inactive CLINDAMYCIN HCL 300 MG CAPS 1 po q6hr x 7 days CLINDAMYCIN HCL 300 MG CAPS 344106 CLINDAMYCIN HCL Inactive HYDROCODONE-ACETAMINOPHEN 7.5-325 MG TABS 1 po QID PRN Pain 2011 HYDROCODONE-ACETAMINOPHEN 7.5-325 MG TABS 511040 HYDROCODONE-ACETAMINOPHEN Inactive SPIRONOLACTONE 25 MG TAB 1 tablet by mouth daily 01/22 SPIRONOLACTONE 25 MG TAB 668524 SPIRONOLACTONE Inactive IBUPROFEN 600 MG TAB 1 po q6-8hr PRN IBUPROFEN 600 MG TAB 218631 IBUPROFEN Inactive FERROUS SULFATE 325 (65 FE) MG TABS 1 tablet by mouth twice yung y FERROUS SULFATE 325 (65 FE) MG TABS 065342 FERROUS SULF ATE Inactive HYDROCODONE-ACETAMINOPHEN 7.5-500 MG [...] PRN Pain 2011 HYDROCODONE-ACETAMINOPHEN 5-325 MG TABS 759934 HYDROCODONE-ACETAMINOPHEN Inactive DOXYCYCLINE HYCLATE 100 MG CAPS Take one (1) tablet by mouth twice a day DOXYCYCLINE HYCLATE 100 MG CAPS 367946 DOXYCYCLINE HYCLATE Inactive PENICILLIN V POTASSIUM 500 MG TAB 1 four times a day 2 PENICILLIN V POTASSIUM 500 MG TAB 042337 PENICILLIN V POTASSIUM Siri ctive PRISTIQ 50 MG [id number] 1 po qd PRISTIQ 50 MG [id number] DESVENLAFAXINE SUCCINATE Inactive TYLENOL/CODEINE #3 300-30 MG TAB 1-2 po q6hr PRN Pain TYLENOL/CODEINE #3 300-30 MG TAB 550763 ACETAMINOPHEN-CODEINE Inact krishna CEPHALEXIN 500 MG TABS Take one by mouth four times daily, morning, noon, early evening and bedtime. CEPHALEXIN 500 MG TABS 268305 CEPHALEXIN Inactive LORTAB 5 5-500 MG TABS 1/2 to 1 tablet by mouth go ry 6 hours as needed for pain LORTAB 5 5-500 MG TABS HYDROCODONE-A CETAMINOPHEN Inactive AMITRIPTYLINE HCL 25 MG TAB 1 tab by mouth daily 60 minutes before bedtime AMITRIPTYLINE HCL 25 MG TAB 573186 AMITRIPTYLINE HCL Inactive AMOXICILLIN 500 MG TABS 2 tabs PO bid x 10 d 7 AMOXICILLIN 500 MG TABS 915997 AMOXICILLIN Inactive IMPLANON 68 MG IMPL IMPLANTED IN LEFT ARM IMPLANON 68 MG IMPL ETONOGESTREL Inactive HYDROCODONE-ACETAMINOPHEN 5-325 MG TABS 1 PO tid PRN pain 5 HYDROCODONE-ACETAMINOPHEN 5-325 MG TABS 169185 HYDROCODONE-ACETAMIN OPHEN Inactive BACTRIM DS 800-160 MG TAB 1 tab by mouth twice daily 2 BACTRIM DS 800-160 MG TAB TRIMETHOPRIM-SULFAMETHOXAZOLE Inac tive CEPHALEXIN 500 MG CAPS 1 PO bid x 7 days CEPHALEXIN 500 MG CAPS 465786 CEPHALEXIN Inactive HYDROCODONE-ACETAMINOPHEN 5-325 MG TABS 1 tab by mouth every 6 hours as needed HYDROCODONE-ACETAMINOPHEN 5-325 MG TABS 849543 HYDROCODONE-ACETAMINOPHEN Inactive PROMETHAZINE-CODEINE 6.25-10 MG/5ML SYRP 1 tsp every 6 hrs prn c ough PROMETHAZINE-CODEINE 6.25-10 MG/5ML SYRP 641078 PROMETH AZINE-CODEINE Inactive IBUPROFEN 800 MG TAB 1 pill three times daily as needed for pain IBUPROFEN 800 MG TAB 344488 IBUPROFEN Inactive KEFLEX 500 MG CAP 1 tab po tid KEFLEX 500 MG CAP 611903 CEPHALEXIN Inactive HYDROCODONE-ACETAMINOPHEN 7.5-325 MG TABS 1 four times a day as needed for pain HYDROCODONE-ACETAMINOPHEN 7.5-325 MG TABS 298672 HYDROCODONE-ACETAMINOPHEN Inactive BACTRIM DS 800-160 MG TABS by mouth twice a day 11/05 BACTRIM DS 800-160 MG TABS SULFAMETHOXAZOLE-TRIMETHOPRIM Inactive IBUPROFEN 800 MG TABS 1 tid prn IBUPROFEN 800 MG TABS 224754 IBUPROFEN Inactive ENDOCET 10-325 MG TABS 1 q 6 hr prn ENDOC ET 10-325 MG TABS 3879491 OXYCODONE-ACETAMINOPHEN Inactive HYDROCODONE-ACETAMINOPHEN 7.5-325 MG TABS 1 by mouth e very 6 hours as needed for pain HYDROCODONE-ACETAMINOPHEN 7.5-325 MG TABS 310064 HYDROCODONE-ACETAMINOPHEN Inactive PERCOCET 7.5-325 MG TABS 1 PO q 8 hrs PRN pain PERCOCET 7.5-325 MG TABS 9731650 OXYCODONE-ACETAMINOPHEN Inactive LIDODERM 5 % PTCH One patch to painful area AL N. On for 12 hrs, off for 12 hrs. LIDODERM 5 % PTCH 6031292 LIDOCAINE Inactiv e PERCOCET 7.5-325 MG TABS 1 PO tid PRN pain PERCOCET 7.5- 325 MG TABS 7484251 OXYCODONE-ACETAMINOPHEN Inactive MOBIC 15 MG TABS 1 tab daily MOBIC 15 MG TABS 15 2695 MELOXICAM Inactive CYCLOBENZAPRINE HCL 10 MG TABS 1/2 - 1 tab PO tid PRN back p ain, muscle spasm CYCLOBENZAPRINE HCL 10 MG TABS 044109 CYCLOBENZA JOSEPH HCL Inactive LORATADINE 10 MG TABS 1 tablet by mouth daily LORATADINE 10 MG TABS 469901 LORATADINE Inactive HYDROCODONE-ACETAMINOPHEN 10-325 MG TABS 1 by mouth ev chaka 8 hours as needed for pain HYDROCODONE-ACETAMINOPHEN 10-325 MG TABS 424963 HYDROCODONE-ACETAMINOPHEN Inactive LC-5 LIDOCAINE 5 % CREA apply 1 time daily to affected area 2013 LC-5 LIDOCAINE 5 % CREA LIDOCAINE (ANORECTAL) In active PERCOCET 5-325 MG TAB 1 every 6 hours as needed PERCOCET 5-325 MG TAB 3515432 OXYCODONE-ACETAMINOPHEN Inactive KEFLEX 500 MG CAP 1 po qid KEFLEX 500 MG CAP 30 9114 CEPHALEXIN Inactive PROAIR HFA 108 (90 BASE) MCG/ACT AERS 2 puff q 4-6 hrs PRN 01/24 PROAIR HFA 108 (90 BASE) MCG/ACT AERS ALBUTEROL SULFATE Inactive PERCOCET 10-325 MG ORAL TABS 1 every 4 hours as needed PERCOCET 10-325 MG ORAL TABS 2502655 OXYCODONE-ACETAMINOPHEN Inactiv e EMLA 2.5-2.5 % EXT CREA apply to skin lesion q 6 hours, prn 2014 EMLA 2.5-2.5 % EXT CREA 373058 LIDOCAINE-PRILOCAINE Siri ctive AMOXICILLIN 875 MG TABS 1 tab by mouth twice daily 201 07/18/07 AMOXICILLIN 875 MG TABS 990506 AMOXICILLIN Inactive KEFLEX 500 MG CAP 1 po tid x 10 days KEFLEX 500 MG CAP 214955 CEPHALEXIN Inactive AMOXICILLIN 875 MG TABS 1 tab by mouth twice daily 201 07/19/27 AMOXICILLIN 875 MG TABS 412742 AMOXICILLIN Inactive AMOXICILLIN 875 MG TABS 1 tab by mouth twice daily 201 08/09/13 AMOXICILLIN 875 MG TABS 863141 AMOXICILLIN Inactive CIPRO 500 MG TAB 1 tablet by mouth twice daily CIPRO 500 MG TAB 938396 CIPROFLOXACIN HCL Inactive BACTRIM DS 800-160 MG TAB 1 tab by mouth twice daily 2 BACTRIM DS 800-160 MG TAB TRIMETHOPRIM-SULFAMETHOXAZOLE Inac tive LEVAQUIN 500 MG TABS 1 PO q day x 7 days LEVAQUIN 500 MG TABS 196969 LEVOFLOXACIN Inactive CLINDAMYCIN HCL 300 MG CAPS 1 po QID x 7 days CLINDAMYCIN HCL 300 MG CAPS 471626 CLINDAMYCIN HCL Inactive AUGMENTIN 875-125 MG TAB 1 tab by mouth twice daily with food 20 22/05/07 AUGMENTIN 875-125 MG TAB 086097 AMOXICILLIN-POT CLAVULA [place] Inactive DIFLUCAN 150 MG TAB 1 qODay x 2 doses DIFLUCAN 150 MG TAB 318655 FLUCONAZOLE Inactive PREDNISONE 20 MG TAB 2 tabs daily for 3 days, 1 t ab daily for 3 days, 1/2 tab daily for 2 days PREDNISONE 20 MG TAB 971794 PREDNISON E Inactive AUGMENTIN 875-125 MG TAB 1 tab by mouth twice daily with food 20 21/10/13 AUGMENTIN 875-125 MG TAB 513913 AMOXICILLIN-POT CLAVULA [place] Inactive Advance Directives Directive Description Start Date PERMISSION TO SHARE Immunizations Vaccine Administration Date Value Standard Alf cription Seasonal influenza vaccine, injectable, containing preservative, for > 3 years old (Afluria, FluLaval, Fluzone, Fluvirin, Fluarix, Agriflu(>= 18 yo)) Fluzone (>3 yrs.) [[id number]] Influenza, seasonal, inject able Seasonal influenza vaccine, injectable, preservative free, for > 3 years old (Afluria, FluLaval, Fluzone, Fluvirin, Fluarix, Agriflu(>= 18 yo)) Fluzone preservative free (>3 yrs.) [[id number]] Influenza, seasonal, injectable, preservative free Seasonal influenza vaccine, injectable, containing preservative, for > 3 years old (Afluria, FluLaval, Fluzone, Fluvirin, Fluarix, Agriflu(>= 18 yo)) Fluzone (>3 yrs.) [[id number]] Influenza, seasonal, inject able Seasonal influenza vaccine, injectable, containing preservative, for > 3 years old (Afluria, FluLaval, Fluzone, Fluvirin, Fluarix, Agriflu(>= 18 yo)) Fluzone (>3 yrs.) [[id number]] Influenza, seasonal, inject able dT (Diphtheria and [...] Panel - Chemistry sodium, serum 142 mmol/L 932-357 1963/05/12 potassium, serum 4.8 mmol/L 3.5-5.2 chloride, serum [...] Panel - Chemistry cholesterol, serum 165 mg/dL 117-863 9297/05/12 triglyceride, serum, fasting 524 mg/dL 30-200 HDL [...] negative Encounters Code Encounter Date Provider Facility CPT-16613 Level 4 Est. Patient 16:44:56 CDT Abdirahman Rios MD [facility] CPT-55724 Level 2 Est. Patient 07:49:32 CDT Kalpesh goins MD [facility] CPT-45008 Level 3 New Patient 15:47:11 COMMISSIONING ENGINEER Bj huber MD [facility]-32754 Level 4 Est. Patient 14:37:38 COMMISSIONING ENGINEER Abdirahman Rios MD [facility] CPT-50286 Level 2 Est. Patient 13:32:17 COMMISSIONING ENGINEER Kalpesh goins MD [facility] CPT-07870 Level 3 Est. Patient 17:32:57 COMMISSIONING ENGINEER Edilberto tiwari [facility] CPT-10030 Level 3 Est. Patient 17:22:33 COMMISSIONING ENGINEER Edilberto tiwari [facility] CPT-73754 Level 2 Est. Patient 16:57:09 COMMISSIONING ENGINEER Kalpesh goins MD [facility]-40508 Level 3 Est. Patient 14:03:08 COMMISSIONING ENGINEER Abdirahman Rios MD [facility] CPT-30535 Level 3 Est. Patient 18:12:34 CDT Shola Houghsabi [facility] CPT-54743 Level 3 Est. Patient 19:34:46 CDT Shola Houghsabi [facility] CPT-10400 Level 3 Est. Patient 14:19:37 CDT Abdirahman Rios MD [facility] CPT-76990 Level 3 Est. Patient 14:11:58 CDT Kalpesh goins MD [facility] CPT-93440 Level 3 Est. Patient 16:50:00 CDT Michelle MERCADO [facility] CPT-40230 Level 3 Est. Patient 17:11:32 COMMISSIONING ENGINEER Brandie bates MD PhD [facility] CPT-08786 Level 3 Est. Patient 16:31:47 COMMISSIONING ENGINEER Shola Wright [facility] CPT-67836 Level 3 Est. Patient 17:51:10 COMMISSIONING ENGINEER Abhinav Galvan MD [facility] CPT-34599 Level 4 Est. Patient 12:54:56 COMMISSIONING ENGINEER Kalpesh goins MD [facility] CPT-31485 Level 4 Est. Patient 12:53:56 COMMISSIONING ENGINEER Kalpesh goins MD [facility] CPT-28444 Level 3 Est. Patient 17:56:58 CDT Shola Wright [facility] CPT-55535 Level 3 Est. Patient 14:26:20 CDT Janak butcher [facility] CPT-40986 Level 3 Est. Patient 09:38:41 CDT Shola Wright [facility] CPT-90859 Level 3 Est. Patient 14:45:26 CDT Edilberto tiwari DO [facility] CPT-47516 Level 3 Est. Patient 10:51:33 [facility] Level 3 Est. Patient 11:57:55 COMMISSIONING ENGINEER Shola Wright [facility] CPT-01993 Level 3 Est. Patient 09:53:33 COMMISSIONING ENGINEER Edilberto tiwari [facility] CPT-08867 Level 3 Est. Patient 14:42:54 COMMISSIONING ENGINEER Abhinav Galvan MD [facility] CPT-46313 Level 3 Est. Patient 15:10:02 CDT Janak Stevenamira butcher [facility] CPT-17368 Level 3 Est. Patient 15:20:20 CDT Theo dennis MD [facility]-64939 Level 2 Est. Patient 14:08:57 CDT Kalpesh goins MD [facility] CPT-15353 Level 3 Est. Patient 13:56:19 CDT Abdirahman Rios MD [facility] CPT-36327 Level 3 Est. Patient 13:59:37 CDT Abdirahman Rios MD [facility] CPT-26383 Level 2 Est. Patient 14:44:59 CDT Kalpesh goins MD [facility] CPT-91779 Level 3 Est. Patient 06:06:23 CDT Edilberto tiwari [facility] CPT-31878 Level 3 Est. Patient 15:23:54 CDT Abdirahman Rios MD [facility] CPT-71164 Level 3 Est. Patient 15:43:49 CDT Abdirahman Rios MD [facility] CPT-81994 Level 3 Est. Patient 12:46:47 COMMISSIONING ENGINEER Abdirahman Rios MD [facility] CPT-81080 Level 3 Est. Patient 08:13:35 COMMISSIONING ENGINEER Abdirahman Rios MD [facility] CPT-98090 Level 2 Est. Patient 09:36:42 COMMISSIONING ENGINEER Abdirahman Rios MD [facility] CPT-71126 Level 3 Est. Patient 10:56:43 CDT Abdirahman Rios MD [facility] CPT-57513 Level 3 Est. Patient 18:24:52 CDT Abdirahman Rios MD [facility] CPT-07471 Level 3 Est. Patient 13:27:22 CDT Abdirahman Rios MD [facility] Procedures Code Procedure Name Date Entry Date Standard Desc ription CPT-26449 Postop F/U Visit 14:40:59 CDT CPT-91385 Postop F/U Visit 15:02:46 CDT CPT-53668 Postop F/U Visit 11:29:00 COMMISSIONING ENGINEER CPT-J0696 Rocephin 1000 mg (Ceftriaxone) 17:22:33 COMMISSIONING ENGINEER CPT-51374 Postop F/U Visit 18:41:07 COMMISSIONING ENGINEER CPT-45328 Postop F/U Visit 08:19:08 COMMISSIONING ENGINEER CPT-13932 Immunization Single Admin 16:41:53 CDT 2013 CPT-75594 Fluzone Quadrivalent Intramuscular Suspe nsion 0.5 ML 16:41:53 CDT CPT-OV Office Visit 16:39:18 CDT CPT-OV Office Visit 16:16:36 CDT CPT-OV Office Visit 15:34:48 CDT CPT-07905 Postop F/U Visit 14:50:12 CDT CPT-57329 Postop F/U Visit 14:41:10 CDT CPT-10670 Venipuncture Draw Fee 11:38:04 COMMISSIONING ENGINEER CPT-98741 Postop F/U Visit 19:02:59 COMMISSIONING ENGINEER CPT-96334 Postop F/U Visit 12:04:54 COMMISSIONING ENGINEER CPT-79173 Administration single or combination vac cine inc oral 15:56:43 CDT CPT-27133 Influenza split virus > age 3 15:56:43 CDT CPT-85408 Hand comp min 3V 14:25:19 CDT CPT-67822 Postop F/U Visit 21:40:51 CDT CPT-79085 Postop F/U Visit 10:58:43 CDT CPT-34398 Administration single or combination vac cine inc oral 12:33:54 COMMISSIONING ENGINEER CPT-41699 Influenza Preservative Free split virus >age 3 12:33:54 COMMISSIONING ENGINEER CPT-90865 Administration single or combination vac cine inc oral 09:30:51 CDT CPT-30736 Influenza split virus > age 3 09:30:51 CDT CPT-66615 Postop F/U Visit 15:14:53 CDT CPT-58363 Postop F/U Visit 13:50:14 CDT CPT-69457 Postop F/U Visit 13:34:52 CDT CPT-OV Office Visit 16:55:03 CDT CPT-32067 [place] of cervix w bx ECC 13:32:50 CDT 10/19 CPT-J1885 Toradol 60 mg (Ketorolac) 15:31:59 CDT 2011 CPT-J1885 Toradol 60 mg (Ketorolac) 15:23:54 CDT 2011 CPT-40731 Visit 11:34:37 COMMISSIONING ENGINEER CPT-64396 Visit 10:52:39 COMMISSIONING ENGINEER CPT-96869 Visit 10:12:02 COMMISSIONING ENGINEER CPT-62809 Visit 11:22:43 COMMISSIONING ENGINEER CPT-95467 Visit 11:24:12 COMMISSIONING ENGINEER CPT-41296 Visit 10:47:05 COMMISSIONING ENGINEER CPT-OV Office Visit 10:26:16 COMMISSIONING ENGINEER CPT-OV Office Visit 15:34:31 COMMISSIONING ENGINEER CPT-70027 Visit 10:42:08 COMMISSIONING ENGINEER CPT-56659 Visit 10:52:45 COMMISSIONING ENGINEER CPT-000 Give Appropriate Flu Vaccine 16:56:41 CDT 2 CPT-40864 Administration single or combination vac cine inc oral 10:33:21 CDT CPT-56519 Influenza split virus > age 3 10:33:21 CDT CPT-62944 Visit 13:23:09 CDT CPT-49846 Visit 18:24:52 CDT CPT-03573 Sono OB comp > 14 weeks 12:07:49 CDT 04/07
--- OUTSIDE RECORDS SUMMARY | 2020-01-18 15:58 | XMS REPORT | Clinical Summary ---
Author Author Admin, Jeri Rashid Organization [facility] Address Unknown Phone Unavailable Allergies, Adverse Reactions, [...] FOR THERAPEUTIC DRUG MONITORING ICD-V58.83 Inactive Good Julain MD AMENORRHEA ICD-626.0 Inactive Good sierra MD [...] Abdirahman Rios MD Sinusitis, acute ICD-461.9 Inactive Abdiarhman Casas MD AFTERCARE FOLLOW SURGERY SKIN&SUBCUT TISSUE NEC ICD-V58.77 Inactive Abdirahman Rios MD Impetigo ICD-684 Inactive Abdirahman Rios MD 08/24 AFTERCARE FOLLOW SURGERY SKIN&SUBCUT TISSUE NEC ICD-V58.77 Inactive Abdirahman Rios MD Medication List Medication Instructions Start Date Stop Date Generic Name NDC Status Provider Patient Instruction HYDROCODONE-ACETAMINOPHEN 5-325 MG TABS 1 po q6hr PRN Pain HYDROCODONE-ACETAMINOPHEN 04440393580 Active Abdirahman Rios MD Active PERCOCET 5-325 MG ORAL TABS 1 every 6 hours as needed OXYCODONE-ACETAMINOPHEN 54841248116 No Longer Active Abdirahman Rios MD Active PERCOCET 5-325 MG TAB 1 tab po q 6 -8 hours, prn for severe pain OXYCODONE-ACETAMINOPHEN 92895864428 No Longer Active Abdirahman Rios MD Active HYDROCODONE-ACETAMINOPHEN 5-325 MG TABS 1 po q6hr PRN pain 06/30 HYDROCODONE-ACETAMINOPHEN 06044089757 No Longer Active Hira roman ADOPTION AGENT Active SPRINTEC 28 0.25-35 MG-MCG TABS 1 pill by mouth daily for bi rth control NORGESTIMATE-ETH ESTRADIOL 74765924575 Active Hira Moser ADOPTION AGENT Active GLUCOPHAGE 500 MG ORAL TABS one by mouth 3 times a day METFORMIN HCL 45728326409 No Longer Active Hira Moser APRN Ac tive PERCOCET 10-325 MG TABS 1 tab by mouth every 6 hours , use sparingly for severe pain OXYCODONE-ACETAMINOPHEN 26912077702 No Longer A ctive Abdirahman Rios MD Active IBUPROFEN 600 MG ORAL TABS 1 by mouth twice a day IBUPROFEN 80996009941 Active ERNIE Higuera Active TRAZODONE HCL 100 MG TAB 0.5 to 1 po qHS PRN Insomnia TRAZODONE HCL 90695241795 Active Abdirahman Rios MD Active CYMBALTA 30 MG CPEP 1 cap by mouth daily DULOXE CLEO HCL 13169136681 Active Abdirahman Rios MD Active EMLA 2.5-2.5 % EXT CREA apply to skin lesion q 6 hours, prn 2014 LIDOCAINE-PRILOCAINE 50620570077 No Longer Active Abdirahman Rios MD Active PERCOCET 10-325 MG ORAL TABS 1 every 4 hours as needed OXYCODONE-ACETAMINOPHEN 88420072632 No Longer Active Abdirahman Rios MD Active [id number] 50-325-40 MG ORAL CAPS 1-2 po TID SD N Headache [id number] 15102412359 Active Abdirahman Rios MD Active AUGMENTIN 875-125 MG TAB 1 tab by mouth twice daily with food 21/10/13 AMOXICILLIN-POT CLAVULANATE 30256043065 No Longer Active Ursula jasmina Frazell ADOPTION AGENT Active PROAIR HFA 108 (90 BASE) MCG/ACT AERS 2 puff q 4-6 hrs PRN 01/24 ALBUTEROL SULFATE 22498109383 No Longer Active Kalpesh Dong MD Active ALPRAZOLAM 0.5 MG TABS 1 po BID PRN Anxiety ALPRA ZOLAM 74413427118 Active Abdirahman Rios MD Active CYCLOBENZAPRINE HCL 10 MG TABS 1 tablet by mouth three times daily as needed for muscle spasm/pain CYCLOBENZAPRINE HCL 90805678628 Active Abdirahman Rios MD Active PREDNISONE 20 MG TAB 2 tabs daily for 3 days, 1 t ab daily for 3 days, 1/2 tab daily for 2 days PREDNISONE 81598328490 No Longer Active Abdirahman Rios MD Active KEFLEX 500 MG CAP 1 po qid CEPHALEXIN 709801031 20 No Longer Active Kalpesh Dong MD Active PERCOCET 5-325 MG TAB 1 every 6 hours as needed OXYCODONE-ACETAMINOPHEN 43297585748 No Longer Active Shola MCGILL Active LC-5 LIDOCAINE 5 % CREA apply 1 time daily to affected area 2013 LIDOCAINE (ANORECTAL) 61443706276 No Longer Active Jillina F razell ADOPTION AGENT Active HYDROCODONE-ACETAMINOPHEN 10-325 MG TABS 1 by mouth ev chaka 8 hours as needed for pain HYDROCODONE-ACETAMINOPHEN 77933210361 No Longer Active Jillina Frazell ADOPTION AGENT Active LORATADINE 10 MG TABS 1 tablet by mouth daily L ORATADINE 68550055206 No Longer Active Jillina Frazell ADOPTION AGENT Active DIFLUCAN 150 MG TAB 1 qODay x 2 doses FLUCONAZO LE 37940496950 No Longer Active Jillina Frazell ADOPTION AGENT Active CYCLOBENZAPRINE HCL 10 MG TABS 1/2 - 1 tab PO tid PRN back p ain, muscle spasm CYCLOBENZAPRINE HCL 26014906238 No Longer Active Karen siri Frazell ADOPTION AGENT Active AUGMENTIN 875-125 MG TAB 1 tab by mouth twice daily with food 20 22/05/07 AMOXICILLIN-POT CLAVULANATE 14119790898 No Longer Active Loida Rios MD Active MOBIC 15 MG TABS 1 tab daily MELOXICAM 284927118 14 No Longer Active Abdirahman Rios MD Active PERCOCET 7.5-325 MG TABS 1 PO tid PRN pain OXYCODONE-ACETAMINOPHEN 32427642832 No Longer Active Abdirahman Rios MD Active LIDODERM 5 % PTCH One patch to painful area SD N. On for 12 hrs, off for 12 hrs. LIDOCAINE 50221474791 No Longer Active Abdirahman Rios MD Active PERCOCET 7.5-325 MG TABS 1 PO q 8 hrs PRN pain OXYCODONE-ACETAMINOPHEN 22132180412 No Longer Active Shola MCGILL Active HYDROCODONE-ACETAMINOPHEN 7.5-325 MG TABS 1 by mouth e very 6 hours as needed for pain HYDROCODONE-ACETAMINOPHEN 78081642227 No Longer Active Good Julian MD Active CLINDAMYCIN HCL 300 MG CAPS 1 po QID x 7 days CLINDAMYCIN HCL 17293612084 No Longer Active Abdirahman Rios MD Activ e BACTRIM DS 800-160 MG TABS 1 po BID x 7 days 5 SULFAMETHOXAZOLE-TRIMETHOPRIM 10637283793 No Longer Active Abdirahman Rios MD Active ENDOCET 10-325 MG TABS 1 q 6 hr prn OXYCODONE-ACETAMINOPHEN 94703638150 No Longer Active Abdirahman Rios MD Active IBUPROFEN 800 MG TABS 1 tid prn IBUPROFEN 367830 24477 No Longer Active Abdirahman Rios MD Active BACTRIM DS 800-160 MG TABS by mouth twice a day 11/05 SULFAMETHOXAZOLE-TRIMETHOPRIM 24618767695 No Longer Active Good Julian MD Active HYDROCODONE-ACETAMINOPHEN 7.5-325 MG TABS 1 four times a day as needed for pain HYDROCODONE-ACETAMINOPHEN 98195734034 No Longer Activ e Good Julian MD Active KEFLEX 500 MG CAP 1 tab po tid CEPHALEXIN 899483 58430 No Longer Active Hira Moser ADOPTION AGENT Active IBUPROFEN 800 MG TAB 1 pill three times daily as needed for pain IBUPROFEN 59047724340 No Longer Active Kalpesh Dong MD Active PROMETHAZINE-CODEINE 6.25-10 MG/5ML SYRP 1 tsp every 6 hrs prn c ough PROMETHAZINE-CODEINE 85511432442 No Longer Active Kalpesh Carr Active HYDROCODONE-ACETAMINOPHEN 5-325 MG TABS 1 tab by mouth every 6 hours as needed HYDROCODONE-ACETAMINOPHEN 79066636475 No Longer Activ e Shola MCGILL Active CEPHALEXIN 500 MG CAPS 1 PO bid x 7 days CEPHAL EXIN 25578777594 No Longer Active Shola MCGILL Active BACTRIM DS 800-160 MG TAB 1 tab by mouth twice daily 2 TRIMETHOPRIM-SULFAMETHOXAZOLE 29067022143 No Longer Active Kalpesh Dong MD Active HYDROCODONE-ACETAMINOPHEN 5-325 MG TABS 1 PO tid PRN pain 5 HYDROCODONE-ACETAMINOPHEN 53684932035 No Longer Active Abhinav Galvan MD Active IMPLANON 68 MG IMPL IMPLANTED IN LEFT ARM ETONO GESTREL 56808586841 No Longer Active Hira Moser APRN Active AMOXICILLIN 500 MG TABS 2 tabs PO bid x 10 d AM OXICILLIN 09125974308 No Longer Active Kalpesh Dong MD Active LEVAQUIN 500 MG TABS 1 PO q day x 7 days LEVOFL OXACIN 94943816984 No Longer Active Shola MCGILL Active AMITRIPTYLINE HCL 25 MG TAB 1 tab by mouth daily 60 minutes before bedtime AMITRIPTYLINE HCL 68774337427 No Longer Active Shola MCGILL Active LORTAB 5 5-500 MG TABS 1/2 to 1 tablet by mouth go ry 6 hours as needed for pain HYDROCODONE-ACETAMINOPHEN 22305013870 No Longer Active Shola MCGILL Active CEPHALEXIN 500 MG TABS Take one by mouth four times daily, morning, noon, early evening and bedtime. CEPHALEXIN 87361384891 No Long er Active Hira Moser ADOPTION AGENT Active TYLENOL/CODEINE #3 300-30 MG TAB 1-2 po q6hr PRN Pain ACETAMINOPHEN-CODEINE 63968729680 No Longer Active Edilberto Marino DO Active PRISTIQ 50 MG [id number]-SBS 1 po qd DESVENLAFAXI NE SUCCINATE 32493927057 No Longer Active Edilberto Marino DO Active PENICILLIN V POTASSIUM 500 MG TAB 1 four times a day 2 PENICILLIN V POTASSIUM 85071200094 No Longer Active Edilberto Marino DO Active DOXYCYCLINE HYCLATE 100 MG CAPS Take one (1) tablet by mouth twice a day DOXYCYCLINE HYCLATE 51049913155 No Longer Active Ronnie Galvan MD Active HYDROCODONE-ACETAMINOPHEN 5-325 MG TABS 1 po q 6hr PRN Pain 2011 HYDROCODONE-ACETAMINOPHEN 46141933840 No Longer Active Patri joan Perez RN Active BACTRIM DS 800-160 MG TAB 1 tab by mouth twice daily 2 TRIMETHOPRIM-SULFAMETHOXAZOLE 51947370053 No Longer Active Kalpesh Dong MD Active LORTAB 5 5-500 MG TABS 1/2 to 1 tablet by mouth go ry 4 hours as needed for pain HYDROCODONE-ACETAMINOPHEN 89566121638 No Longer Active Kalpesh Dong MD Active GENERESS FE 0.8-25 MG-MCG CHEW Take one by mouth daily NORETHIN-ETH ESTRADIOL-FE 52776439373 No Longer Active Kalpesh Dong MD Active HYDROCODONE-ACETAMINOPHEN 7.5-500 MG TABS 1-2 every 4 hours as needed HYDROCODONE-ACETAMINOPHEN 46254259375 No Longer Activ e Kalpesh Dong MD Active FERROUS SULFATE 325 (65 FE) MG TABS 1 tablet by mouth twice yung y FERROUS SULFATE 39753832265 No Longer Active Kalpesh Dong MD Active IBUPROFEN 600 MG TAB 1 po q6-8hr PRN IBUPROFEN 66561168314 No Longer Active Kalpesh Dogn MD Active SPIRONOLACTONE 25 MG TAB 1 tablet by mouth daily 01/22 SPIRONOLACTONE 17752450966 No Longer Active Kalpesh Dong MD Acti ve HYDROCODONE-ACETAMINOPHEN 7.5-325 MG TABS 1 po QID PRN Pain 2011 HYDROCODONE-ACETAMINOPHEN 96490619189 No Longer Active Kalpesh Dong MD Active CLINDAMYCIN HCL 300 MG CAPS 1 po q6hr x 7 days CLINDAMYCIN HCL 74056274283 No Longer Active Edilberto Marino DO Active PREDNISONE 20 MG TAB 2 tabs daily for 4 days, 1 t ab daily for 4 days, 1/2 tab daily for 4 days PREDNISONE 31528681014 No Longer Active Edilberto Marino DO Active PERCOCET 5-325 MG TABS 1 tablet by mouth every 6 hours as ne eded for pain OXYCODONE-ACETAMINOPHEN 11567653281 No Longer Active Abdirahman Rios MD Active VITAMINS TABS Take one by mouth daily MV & MIN W/FE-FA TABS 08807119473 No Longer Active Abdirahman Rios MD Active LUIS 3-0.02 MG TABS 1 tablet by mouth daily as directed DROSPIRENONE-ETHINYL ESTRADIOL 25546749165 No Longer Active Abdirahman Rios MD Active LORATADINE 10 MG TABS 1 tablet by mouth daily L ORATADINE 12583234448 No Longer Active Kalpesh Dong MD Active HYDROCODONE-ACETAMINOPHEN 5-325 MG TABS 1 po q 6hr PRN Pain 2010 HYDROCODONE-ACETAMINOPHEN 21638151871 No Longer Active Edilberto Marino DO Active BACTRIM DS 800-160 MG TAB 1 tab by mouth twice daily 2 TRIMETHOPRIM-SULFAMETHOXAZOLE 60980367323 No Longer Active Abdirahman Rios MD Active 28-0.8 MG TABS Take one by mouth daily 09/20 VIT-FE FUMARATE-FA 69605336280 No Longer Active Abdirahman Rios MD Active CIPRO 500 MG TAB 1 tablet by mouth twice daily CIPROFLOXACIN HCL 21735930978 No Longer Active Abdirahman Rios MD Active BENADRYL 25 MG CAP 1 po q8hr PRN Congestion DIPHENHYDRAMINE HCL 22086094401 No Longer Active Abdirahman Rios MD Active ZOLOFT 50 MG TAB 1 po qd SERTRALINE HCL 896898 91990 No Longer Active Abdirahman Rios MD Active AMOXICILLIN 875 MG TABS 1 tab by mouth twice daily 201 08/09/13 AMOXICILLIN 43253058867 No Longer Active Abdirahman Rios MD Activ e AMOXICILLIN 875 MG TABS 1 tab by mouth twice daily 201 07/19/27 AMOXICILLIN 07002244733 No Longer Active Abdirahman Rios MD Activ e BACTRIM DS 800-160 MG TAB 2 tab by mouth twice daily 2 TRIMETHOPRIM-SULFAMETHOXAZOLE 58473201524 No Longer Active Abdirahman Rios MD Active KEFLEX 500 MG CAP 1 po tid x 10 days CEPHALEXIN 49103610019 No Longer Active Abdirahman Rios MD Active AMOXICILLIN 875 MG TABS 1 tab by mouth twice daily 201 07/18/07 AMOXICILLIN 01404705628 No Longer Active Abdirahman Rios MD Activ e BACTRIM DS 800-160 MG TAB 2 tab by mouth twice daily 2 BACTRIM DS 800-160 MG TAB TRIMETHOPRIM-SULFAMETHOXAZOLE Inactive ZOLOFT 50 MG TAB 1 po qd ZOLOFT 50 MG TAB 3129 41 SERTRALINE HCL Inactive BENADRYL 25 MG CAP 1 po q8hr PRN Congestion BENADRYL 25 MG CAP 2703739 DIPHENHYDRAMINE HCL Inactive 28-0.8 MG TABS Take one by mouth daily 09/20 28-0.8 MG TABS VIT-FE FUMARATE-FA Inactive HYDROCODONE-ACETAMINOPHEN 5-325 MG TABS 1 po q 6hr PRN Pain 2010 HYDROCODONE-ACETAMINOPHEN 5-325 MG TABS 527509 HYDROCODONE-ACETAMINOPHEN Inactive LORATADINE 10 MG TABS 1 tablet by mouth daily LORATADINE 10 MG TABS 186343 LORATADINE Inactive LUIS 3-0.02 MG TABS 1 tablet by mouth daily as directed LUIS 3-0.02 MG TABS DROSPIRENONE-ETHINYL ESTRADIOL Inactive VITAMINS TABS Take one by mouth daily VITAMINS TABS MV & MIN W/FE-FA TABS Inactive PERCOCET 5-325 MG TABS 1 tablet by mouth every 6 hours as ne eded for pain PERCOCET 5-325 MG TABS 3271602 OXYCODONE-ACETAMIN OPHEN Inactive PREDNISONE 20 MG TAB 2 tabs daily for 4 days, 1 t ab daily for 4 days, 1/2 tab daily for 4 days PREDNISONE 20 MG TAB 929482 PREDNISON E Inactive CLINDAMYCIN HCL 300 MG CAPS 1 po q6hr x 7 days CLINDAMYCIN HCL 300 MG CAPS 331102 CLINDAMYCIN HCL Inactive HYDROCODONE-ACETAMINOPHEN 7.5-325 MG TABS 1 po QID PRN Pain 2011 HYDROCODONE-ACETAMINOPHEN 7.5-325 MG TABS 558549 HYDROCODONE-ACETAMINOPHEN Inactive SPIRONOLACTONE 25 MG TAB 1 tablet by mouth daily 01/22 SPIRONOLACTONE 25 MG TAB 358041 SPIRONOLACTONE Inactive IBUPROFEN 600 MG TAB 1 po q6-8hr PRN IBUPROFEN 600 MG TAB 347818 IBUPROFEN Inactive FERROUS SULFATE 325 (65 FE) MG TABS 1 tablet by mouth twice yung y FERROUS SULFATE 325 (65 FE) MG TABS 578766 FERROUS SULF ATE Inactive HYDROCODONE-ACETAMINOPHEN 7.5-500 MG TABS 1-2 every 4 hours as needed HYDROCODONE-ACETAMINOPHEN 7.5-500 MG TABS HYDROCODONE-ACETAMINOPHEN Inactive GENERESS FE 0.8-25 MG-MCG CHEW Take one by mouth daily GENERESS FE 0.8-25 MG-MCG CHEW 9972694 NORETHIN-ETH ESTRADIOL-FE Inactive LORTAB 5 5-500 MG [...] PRN Pain 2011 HYDROCODONE-ACETAMINOPHEN 5-325 MG TABS 778984 HYDROCODONE-ACETAMINOPHEN Inactive DOXYCYCLINE HYCLATE 100 MG CAPS Take one (1) tablet by mouth twice a day DOXYCYCLINE HYCLATE 100 MG CAPS 3180577 DOXYCYCLINE HYCLATE Inactive PENICILLIN V POTASSIUM 500 MG TAB 1 four times a day 2 PENICILLIN V POTASSIUM 500 MG TAB 177292 PENICILLIN V POTASSIUM Siri ctive PRISTIQ 50 MG [id number] 1 po qd PRISTIQ 50 MG [id number] DESVENLAFAXINE SUCCINATE Inactive TYLENOL/CODEINE #3 300-30 MG TAB 1-2 po q6hr PRN Pain TYLENOL/CODEINE #3 300-30 MG TAB 486413 ACETAMINOPHEN-CODEINE Inact krishna CEPHALEXIN 500 MG TABS Take one by mouth four times daily, morning, noon, early evening and bedtime. CEPHALEXIN 500 MG TABS 617757 CEPHALEXIN Inactive LORTAB 5 5-500 MG TABS 1/2 to 1 tablet by mouth go ry 6 hours as needed for pain LORTAB 5 5-500 MG TABS HYDROCODONE-A CETAMINOPHEN Inactive AMITRIPTYLINE HCL 25 MG TAB 1 tab by mouth daily 60 minutes before bedtime AMITRIPTYLINE HCL 25 MG TAB 059129 AMITRIPTYLINE HCL Inactive AMOXICILLIN 500 MG TABS 2 tabs PO bid x 10 d 7 AMOXICILLIN 500 MG TABS 014282 AMOXICILLIN Inactive IMPLANON 68 MG IMPL IMPLANTED IN LEFT ARM IMPLANON 68 MG IMPL ETONOGESTREL Inactive HYDROCODONE-ACETAMINOPHEN 5-325 MG TABS 1 PO tid PRN pain 5 HYDROCODONE-ACETAMINOPHEN 5-325 MG TABS 239593 HYDROCODONE-ACETAMIN OPHEN Inactive BACTRIM DS 800-160 MG TAB 1 tab by mouth twice daily 2 BACTRIM DS 800-160 MG TAB TRIMETHOPRIM-SULFAMETHOXAZOLE Inac tive CEPHALEXIN 500 MG CAPS 1 PO bid x 7 days CEPHALEXIN 500 MG CAPS 887568 CEPHALEXIN Inactive HYDROCODONE-ACETAMINOPHEN 5-325 MG TABS 1 tab by mouth every 6 hours as needed HYDROCODONE-ACETAMINOPHEN 5-325 MG TABS 210358 HYDROCODONE-ACETAMINOPHEN Inactive PROMETHAZINE-CODEINE 6.25-10 MG/5ML SYRP 1 tsp every 6 hrs prn c ough PROMETHAZINE-CODEINE 6.25-10 MG/5ML SYRP 582805 PROMETH AZINE-CODEINE Inactive IBUPROFEN 800 MG TAB 1 pill three times daily as needed for pain IBUPROFEN 800 MG TAB 163338 IBUPROFEN Inactive KEFLEX 500 MG CAP 1 tab po tid KEFLEX 500 MG CAP 166076 CEPHALEXIN Inactive HYDROCODONE-ACETAMINOPHEN 7.5-325 MG TABS 1 four times a day as needed for pain HYDROCODONE-ACETAMINOPHEN 7.5-325 MG TABS 710864 HYDROCODONE-ACETAMINOPHEN Inactive BACTRIM DS 800-160 MG TABS by mouth twice a day 11/05 BACTRIM DS 800-160 MG TABS SULFAMETHOXAZOLE-TRIMETHOPRIM Inactive IBUPROFEN 800 MG TABS 1 tid prn IBUPROFEN 800 MG TABS 351773 IBUPROFEN Inactive ENDOCET 10-325 MG TABS 1 q 6 hr prn ENDOC ET 10-325 MG TABS 6835183 OXYCODONE-ACETAMINOPHEN Inactive HYDROCODONE-ACETAMINOPHEN 7.5-325 MG TABS 1 by mouth e very 6 hours as needed for pain HYDROCODONE-ACETAMINOPHEN 7.5-325 MG TABS 938324 HYDROCODONE-ACETAMINOPHEN Inactive PERCOCET 7.5-325 MG TABS 1 PO q 8 hrs PRN pain PERCOCET 7.5-325 MG TABS 8356206 OXYCODONE-ACETAMINOPHEN Inactive LIDODERM 5 % PTCH One patch to painful area SD N. On for 12 hrs, off for 12 hrs. LIDODERM 5 % PTCH 1936972 LIDOCAINE Inactiv e PERCOCET 7.5-325 MG TABS 1 PO tid PRN pain PERCOCET 7.5- 325 MG TABS 8135226 OXYCODONE-ACETAMINOPHEN Inactive MOBIC 15 MG TABS 1 tab daily MOBIC 15 MG TABS 15 2695 MELOXICAM Inactive CYCLOBENZAPRINE HCL 10 MG TABS 1/2 - 1 tab PO tid PRN back p ain, muscle spasm CYCLOBENZAPRINE HCL 10 MG TABS 656041 CYCLOBENZA JOSEPH HCL Inactive LORATADINE 10 MG TABS 1 tablet by mouth daily LORATADINE 10 MG TABS 164251 LORATADINE Inactive HYDROCODONE-ACETAMINOPHEN 10-325 MG TABS 1 by mouth ev chaka 8 hours as needed for pain HYDROCODONE-ACETAMINOPHEN 10-325 MG TABS 272242 HYDROCODONE-ACETAMINOPHEN Inactive LC-5 LIDOCAINE 5 % CREA apply 1 time daily to affected area 2013 LC-5 LIDOCAINE 5 % CREA LIDOCAINE (ANORECTAL) In active PERCOCET 5-325 MG TAB 1 every 6 hours as needed PERCOCET 5-325 MG TAB 6563741 OXYCODONE-ACETAMINOPHEN Inactive KEFLEX 500 MG CAP 1 po qid KEFLEX 500 MG CAP 30 9114 CEPHALEXIN Inactive PROAIR HFA 108 (90 BASE) MCG/ACT AERS 2 puff q 4-6 hrs PRN 01/24 PROAIR HFA 108 (90 BASE) MCG/ACT AERS ALBUTEROL SULFATE Inactive PERCOCET 10-325 MG ORAL TABS 1 every 4 hours as needed PERCOCET 10-325 MG ORAL TABS 4661018 OXYCODONE-ACETAMINOPHEN Inactiv e EMLA 2.5-2.5 % EXT CREA apply to skin lesion q 6 hours, prn 2014 EMLA 2.5-2.5 % EXT CREA 425909 LIDOCAINE-PRILOCAINE Siri ctive PERCOCET 10-325 MG TABS 1 tab by mouth every 6 hours , use sparingly for severe pain PERCOCET 10-325 MG TABS 8305413 OXYCODONE-ACETAMINOPHEN Inactive GLUCOPHAGE 500 MG ORAL TABS one by mouth 3 times a day GLUCOPHAGE 500 MG ORAL TABS 809520 METFORMIN HCL Inactive HYDROCODONE-ACETAMINOPHEN 5-325 MG TABS 1 po q6hr PRN pain 06/30 HYDROCODONE-ACETAMINOPHEN 5-325 MG TABS 574939 HYDROCOD ONE-ACETAMINOPHEN Inactive PERCOCET 5-325 MG TAB 1 tab po q 6 -8 hours, prn for severe pain PERCOCET 5-325 MG TAB 7464882 OXYCODONE-ACETAMINOPHEN In active PERCOCET 5-325 MG ORAL TABS 1 every 6 hours as needed PERCOCET 5-325 MG ORAL TABS 5680430 OXYCODONE-ACETAMINOPHEN Inactive AMOXICILLIN 875 MG TABS 1 tab by mouth twice daily 201 07/18/07 AMOXICILLIN 875 MG TABS 438797 AMOXICILLIN Inactive KEFLEX 500 MG CAP 1 po tid x 10 days KEFLEX 500 MG CAP 598540 CEPHALEXIN Inactive AMOXICILLIN 875 MG TABS 1 tab by mouth twice daily 201 07/19/27 AMOXICILLIN 875 MG TABS 818243 AMOXICILLIN Inactive AMOXICILLIN 875 MG TABS 1 tab by mouth twice daily 201 08/09/13 AMOXICILLIN 875 MG TABS 442440 AMOXICILLIN Inactive CIPRO 500 MG TAB 1 tablet by mouth twice daily CIPRO 500 MG TAB 601561 CIPROFLOXACIN HCL Inactive BACTRIM DS 800-160 MG TAB 1 tab by mouth twice daily 2 BACTRIM DS 800-160 MG TAB TRIMETHOPRIM-SULFAMETHOXAZOLE Inac tive LEVAQUIN 500 MG TABS 1 PO q day x 7 days LEVAQUIN 500 MG TABS 181410 LEVOFLOXACIN Inactive CLINDAMYCIN HCL 300 MG CAPS 1 po QID x 7 days CLINDAMYCIN HCL 300 MG CAPS 883429 CLINDAMYCIN HCL Inactive AUGMENTIN 875-125 MG TAB 1 tab by mouth twice daily with food 22/05/07 AUGMENTIN 875-125 MG TAB 519739 AMOXICILLIN-POT CLAVULA [place] Inactive DIFLUCAN 150 MG TAB 1 qODay x 2 doses DIFLUCAN 150 MG TAB 914008 FLUCONAZOLE Inactive PREDNISONE 20 MG TAB 2 tabs daily for 3 days, 1 t ab daily for 3 days, 1/2 tab daily for 2 days PREDNISONE 20 MG TAB 201451 PREDNISON E Inactive AUGMENTIN 875-125 MG TAB 1 tab by mouth twice daily with food 21/10/13 AUGMENTIN 875-125 MG TAB 679149 AMOXICILLIN-POT CLAVULA [place] Inactive Advance Directives Directive Description Start Date PERMISSION TO SHARE Immunizations Vaccine Administration Date Value Standard Alf cription Seasonal influenza vaccine, injectable, containing preservative, for > 3 years old (Afluria, FluLaval, Fluzone, Fluvirin, Fluarix, Agriflu(>= 18 yo)) Fluzone (>3 yrs.) [[id number]] Influenza, seasonal, inject able Seasonal influenza vaccine, injectable, preservative free, for > 3 years old (Afluria, FluLaval, Fluzone, Fluvirin, Fluarix, Agriflu(>= 18 yo)) Fluzone preservative free (>3 yrs.) [[id number]] Influenza, seasonal, injectable, preservative free Seasonal influenza vaccine, injectable, containing preservative, for > 3 years old (Afluria, FluLaval, Fluzone, Fluvirin, Fluarix, Agriflu(>= 18 yo)) Fluzone (>3 yrs.) [[id number]] Influenza, seasonal, inject able Seasonal influenza vaccine, injectable, containing preservative, for > 3 years old (Afluria, FluLaval, Fluzone, Fluvirin, Fluarix, Agriflu(>= 18 yo)) Fluzone (>3 yrs.) [[id number]] Influenza, seasonal, inject able dT (Diphtheria and [...] Panel - Chemistry sodium, serum 142 mmol/L 040-367 7229/05/12 potassium, serum 4.8 mmol/L 3.5-5.2 chloride, serum [...] Panel - Chemistry cholesterol, serum 165 mg/dL 507-579 7845/05/12 triglyceride, serum, fasting 524 mg/dL 30-200 HDL [...] negative Encounters Code Encounter Date Provider Facility CPT-77122 Level 3 Est. Patient 14:29:53 CDT Abhinav Galvan MD [facility] CPT-79163 Level 2 Est. Patient 16:33:01 CDT Kalpesh goins MD [facility] CPT-20407 Level 4 Est. Patient 16:44:56 CDT Abdirahman Rios MD [facility] CPT-53614 Level 2 Est. Patient 07:49:32 CDT Kalpesh goins MD [facility] CPT-41111 Level 3 New Patient 15:47:11 WANIGAN CLERK Bj huber MD [facility] CPT-01871 Level 4 Est. Patient 14:37:38 WANIGAN CLERK Abdirahman Rios MD [facility] CPT-58207 Level 2 Est. Patient 13:32:17 WANIGAN CLERK Kalpesh goins MD [facility] CPT-00957 Level 3 Est. Patient 17:32:57 WANIGAN CLERK Edilberto tiwari [facility] CPT-03431 Level 3 Est. Patient 17:22:33 WANIGAN CLERK Edilberto tiwari [facility] CPT-34377 Level 2 Est. Patient 16:57:09 WANIGAN CLERK Kalpesh goins MD [facility] CPT-98506 Level 3 Est. Patient 14:03:08 WANIGAN CLERK Abdirahman Rios MD [facility] CPT-93904 Level 3 Est. Patient 18:12:34 CDT Shola Wright [facility] CPT-84938 Level 3 Est. Patient 19:34:46 CDT Shola Wright [facility] CPT-30636 Level 3 Est. Patient 14:19:37 CDT Abdirahman Rios MD [facility] CPT-93276 Level 3 Est. Patient 14:11:58 CDT Kalpesh goins MD [facility] CPT-62535 Level 3 Est. Patient 16:50:00 CDT Michelle BRADFORDP [facility] CPT-44479 Level 3 Est. Patient 17:11:32 WANIGAN CLERK Brandie bates MD PhD [facility] CPT-75948 Level 3 Est. Patient 16:31:47 WANIGAN CLERK Shola Wright [facility] CPT-54716 Level 3 Est. Patient 17:51:10 WANIGAN CLERK Abhinav Galvan MD [facility]-99030 Level 4 Est. Patient 12:54:56 WANIGAN CLERK Kalpesh goins MD [facility] CPT-88592 Level 4 Est. Patient 12:53:56 WANIGAN CLERK Kalpesh goins MD [facility] CPT-49106 Level 3 Est. Patient 17:56:58 CDT Shola Wright [facility] CPT-56954 Level 3 Est. Patient 14:26:20 CDT Janak butcher [facility] CPT-61631 Level 3 Est. Patient 09:38:41 CDT Shola Wright [facility] CPT-59703 Level 3 Est. Patient 14:45:26 CDT Edilberto tiwari [facility] CPT-52284 Level 3 Est. Patient 10:51:33 CDT [facility] Level 3 Est. Patient 11:57:55 WANIGAN CLERK Shola Wright [facility] CPT-82583 Level 3 Est. Patient 09:53:33 WANIGAN CLERK Edilberto tiwari [facility] CPT-25726 Level 3 Est. Patient 14:42:54 WANIGAN CLERK Abhinav Galvan MD [facility] CPT-15017 Level 3 Est. Patient 15:10:02 CDT Janak Stevenamira MCGILL [facility] CPT-09734 Level 3 Est. Patient 15:20:20 CDT Theo dennis MD [facility] CPT-50381 Level 2 Est. Patient 14:08:57 CDT Kalpesh goins MD [facility] CPT-96921 Level 3 Est. Patient 13:56:19 CDT Abdirahman Rios MD [facility] CPT-88240 Level 3 Est. Patient 13:59:37 CDT Abdirahman Rios MD [facility] CPT-00460 Level 2 Est. Patient 14:44:59 CDT Kalpesh goins MD [facility] CPT-99588 Level 3 Est. Patient 06:06:23 CDT Edilberto tiwari DO [facility] CPT-58878 Level 3 Est. Patient 15:23:54 CDT Abdirahman Rios MD [facility] CPT-82737 Level 3 Est. Patient 15:43:49 CDT Abdirahman Rios MD [facility] CPT-20998 Level 3 Est. Patient 12:46:47 WANIGAN CLERK Abdirahman Rios MD [facility] CPT-63376 Level 3 Est. Patient 08:13:35 WANIGAN CLERK Abdirahman Rios MD [facility] CPT-00556 Level 2 Est. Patient 09:36:42 WANIGAN CLERK Abdirahman Rios MD [facility] CPT-30685 Level 3 Est. Patient 10:56:43 CDT Abdirahman Rios MD [facility] CPT-54252 Level 3 Est. Patient 18:24:52 CDT Abdirahman Rios MD [facility] CPT-18770 Level 3 Est. Patient 13:27:22 CDJack Rios MD [facility] Procedures Code Procedure Name Date Entry Date Standard Desc ription CPT-61891 Venipuncture Draw Fee 14:27:29 CDT CPT-62899 Postop F/U Visit 15:27:43 CDT CPT-63416 Postop F/U Visit 14:40:59 CDT CPT-82177 Postop F/U Visit 15:02:46 CDT CPT-14837 Postop F/U Visit 11:29:00 WANIGAN CLERK CPT-J0696 Rocephin 1000 mg (Ceftriaxone) 17:22:33 WANIGAN CLERK CPT-69334 Postop F/U Visit 18:41:07 WANIGAN CLERK CPT-56872 Postop F/U Visit 08:19:08 WANIGAN CLERK CPT-40555 Immunization Single Admin 16:41:53 CDT 2013 CPT-04740 Fluzone Quadrivalent Intramuscular Suspe nsion 0.5 ML 16:41:53 CDT CPT-OV Office Visit 16:39:18 CDT CPT-OV Office Visit 16:16:36 CDT CPT-OV Office Visit 15:34:48 CDT CPT-40685 Postop F/U Visit 14:50:12 CDT CPT-16267 Postop F/U Visit 14:41:10 CDT CPT-44240 Venipuncture Draw Fee 11:38:04 WANIGAN CLERK CPT-00015 Postop F/U Visit 19:02:59 WANIGAN CLERK CPT-88717 Postop F/U Visit 12:04:54 WANIGAN CLERK CPT-97071 Administration single or combination vac cine inc oral 15:56:43 CDT CPT-02580 Influenza split virus > age 3 15:56:43 CDT CPT-45362 Hand comp min 3V 14:25:19 CDT CPT-35731 Postop F/U Visit 21:40:51 CDT CPT-17613 Postop F/U Visit 10:58:43 CDT CPT-55655 Administration single or combination vac cine inc oral 12:33:54 WANIGAN CLERK CPT-30578 Influenza Preservative Free split virus >age 3 12:33:54 WANIGAN CLERK CPT-89989 Administration single or combination vac cine inc oral 09:30:51 CDT CPT-66630 Influenza split virus > age 3 09:30:51 CDT CPT-51244 Postop F/U Visit 15:14:53 CDT CPT-01078 Postop F/U Visit 13:50:14 CDT CPT-45992 Postop F/U Visit 13:34:52 CDT CPT-OV Office Visit 16:55:03 CDT CPT-71752 Newry of cervix w bx ECC 13:32:50 CDT 10/19 CPT-J1885 Toradol 60 mg (Ketorolac) 15:31:59 CDT 2011 CPT-J1885 Toradol 60 mg (Ketorolac) 15:23:54 CDT 2011 CPT-06578 Visit 11:34:37 WANIGAN CLERK CPT-41885 Visit 10:52:39 WANIGAN CLERK CPT-07035 Visit 10:12:02 WANIGAN CLERK CPT-57515 Visit 11:22:43 WANIGAN CLERK CPT-52922 Visit 11:24:12 WANIGAN CLERK CPT-57105 Visit 10:47:05 WANIGAN CLERK CPT-OV Office Visit 10:26:16 WANIGAN CLERK CPT-OV Office Visit 15:34:31 WANIGAN CLERK CPT-34697 Visit 10:42:08 WANIGAN CLERK CPT-01776 Visit 10:52:45 WANIGAN CLERK CPT-000 Give Appropriate Flu Vaccine 16:56:41 CDT 2 CPT-97537 Administration single or combination vac cine inc oral 10:33:21 CDT CPT-14717 Influenza split virus > age 3 10:33:21 CDT CPT-29051 Visit 13:23:09 CDT CPT-51530 Visit 18:24:52 CDT CPT-41035 Sono OB comp > 14 weeks 12:07:49 CDT 04/07
--- OUTSIDE RECORDS SUMMARY | 2020-01-18 15:58 | XMS REPORT | Clinical Summary ---
Author Author Admin, Jeri Cabrera [employer] Address Unknown Phone Unavailable Allergies, Adverse Reactions, [...] Chronic pain syndrome 338.4 Active Rajni Alcazar CLOUD ADMINISTRATOR Chronic pain syndrome AFTERCARE FOLLOW SURGERY SKIN&SUBCUT [...] Generic Name NDC Status Provider Patient Instruction [id number] 50-325-40 MG ORAL TABS 1 po TID PRN Headaches [id number] Active Abdirahman owen MD Active CHANTIX STARTING MONTH MARGARITA 0.5 MG X 11 & 1 MG X 42 TAB S 0.5mg daily for 3 days, then 0.5mg BID for 4 days, then 1mg BID VARENICL INE TARTRATE 63436260856 Active Abdirahman Rios MD Active AMOXICILLIN 500 MG CAPS 2 po BID x 10 days AMOX ICILLIN 56794249000 Active Abdirahman Rios MD Active PROMETHAZINE HCL 25 MG TABS 1 four times a day as needed for nausea/vomiting PROMETHAZINE HCL 61728211525 No Longer Active Abdirahman Rios MD Active LC-4 LIDOCAINE 4 % EXT CREA apply q 6 hours, prn 08/03 LIDOCAINE 55662153750 No Longer Active Kalpesh Dong MD Active PERCOCET 10-325 MG TABS 1 tablet every 8 hours as needed for antonia n OXYCODONE-ACETAMINOPHEN 87383653673 No Longer Active Kalpesh Dong MD Active HYDROCODONE-ACETAMINOPHEN 5-325 MG TABS 1 tab by mouth every 6 hours as needed for pain HYDROCODONE-ACETAMINOPHEN 28865143163 No Longer Active Kalpesh Dong MD Active PERCOCET 10-325 MG ORAL TABS 1 every 4 hous as needed OXYCODONE-ACETAMINOPHEN 91005910266 Active Hira Moser APRN Active GLYDO 2 % EXT GEL apply to painful areas as needed LIDOCAINE HCL 81994122030 Active Kalpesh Dong MD Active LC-4 LIDOCAINE 4 % EXT CREA apply to painful area every 12 h ours or as needed LIDOCAINE 37138948852 Active Kalpesh Dong MD Active AUGMENTIN 875-125 MG TAB 1 tab by mouth twice daily with food 20 23/05/16 AMOXICILLIN-POT CLAVULANATE 72536064728 No Longer Active Lizeth hi Yokum CLOUD ADMINISTRATOR 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 FLUTICASONE PROPIONATE 18745740433 No Longer Ac tive Rajni Yokum CLOUD ADMINISTRATOR Active PERCOCET 10-325 MG ORAL TABS take 1 tab by mouth q 4hours as needed for pain OXYCODONE-ACETAMINOPHEN 00368365455 No Longer Active Rajni Yokum CLOUD ADMINISTRATOR Active PERCOCET 10-325 MG ORAL TABS one every 6 hours prn pain OXYCODONE-ACETAMINOPHEN 54506678101 No Longer Active Rajni Yokum CLOUD ADMINISTRATOR Active IBUPROFEN 800 MG TABS 1 tab po tid, with food I BUPROFEN 83065895793 Active Hira Moser CLOUD ADMINISTRATOR Active DICLOFENAC SODIUM 50 MG TBEC 1 tablet by mouth four times da tom PRN Pain DICLOFENAC SODIUM 65805137242 No Longer Active Rajni Yokum CLOUD ADMINISTRATOR Active VIIBRYD 10 & 20 & 40 MG KIT 1 po qd as directed 07/24 VILAZODONE HCL 64563668760 No Longer Active Rajni Yokum CLOUD ADMINISTRATOR Active ONDANSETRON 4 MG TBDP 1 q4h PRN nausea ONDANSET KELBY 72673082802 No Longer Active Rajni Yokum CLOUD ADMINISTRATOR Active PERCOCET 10-325 MG TABS 1 tablet every 8 hours as needed for antonia n OXYCODONE-ACETAMINOPHEN 69716835146 No Longer Active Rajni Y okum CLOUD ADMINISTRATOR Active HYDROCODONE-ACETAMINOPHEN 5-325 MG TABS 1 po TID PRN Pain 9 HYDROCODONE-ACETAMINOPHEN 68332802532 No Longer Active Abdirahman Rios MD Active [id number] 50-325-40 MG ORAL CAPS 1-2 po TID AR N Headache [id number] 48103584131 No Longer Act krishna Kalpesh Dong MD Active ALPRAZOLAM 0.5 MG TABS 1 po BID PRN Anxiety ALP RAZOLAM 81330159626 No Longer Active Kalpesh Dong MD Active TRAZODONE HCL 100 MG TAB 0.5 to 1 po qHS PRN Insomnia TRAZODONE HCL 95071082457 No Longer Active Kalpesh Dong MD Activ e HYDROCODONE-ACETAMINOPHEN 5-325 MG TABS 1 po q6hr PRN Pain 04/09 HYDROCODONE-ACETAMINOPHEN 89497989974 No Longer Active Kalpesh Dong MD Active CYMBALTA 30 MG CPEP 1 cap by mouth daily DULOXE CLEO HCL 86403807071 No Longer Active Abdirahman Rios MD Active IBUPROFEN 600 MG ORAL TABS 1 by mouth twice a day 2014 IBUPROFEN 06402044375 No Longer Active Abdirahman Rios MD Activ e PERCOCET 5-325 MG TAB 1 tab po q 6 hours, prn severe pain 1 OXYCODONE-ACETAMINOPHEN 16635470012 No Longer Active Abdirahman Rios MD Active SPRINTEC 28 0.25-35 MG-MCG TABS 1 pill by mouth daily for bi rth control NORGESTIMATE-ETH ESTRADIOL 46230405538 No Longer Acti ve Karenina Shanti CLOUD ADMINISTRATOR Active CYCLOBENZAPRINE HCL 10 MG TABS 1 tablet by mouth three times daily as needed for muscle spasm/pain CYCLOBENZAPRINE HCL 00273502543 No Longer Active Matthewllina Shanti CLOUD ADMINISTRATOR Active HYDROCODONE-ACETAMINOPHEN 5-325 MG TABS 1 po q6hr PRN Pain 03/09 HYDROCODONE-ACETAMINOPHEN 93579956098 No Longer Active Hira Peraza l CLOUD ADMINISTRATOR Active AUGMENTIN 500-125 MG ORAL TABS 1 by mouth twice a day AMOXICILLIN-POT CLAVULANATE 93658855423 No Longer Active Hira Moser CLOUD ADMINISTRATOR Active DICLOFENAC SODIUM 50 MG TBEC 1 tablet by mouth four times da tom PRN Pain DICLOFENAC SODIUM 26003306560 No Longer Active Karenin a Karmenl CLOUD ADMINISTRATOR Active PROMETHAZINE HCL 25 MG TABS 1 four times a day as needed for nausea/vomiting PROMETHAZINE HCL 80158392081 No Longer Active Abdirahman Rios MD Active HYDROCODONE-ACETAMINOPHEN 5-325 MG TABS 1 tab by mouth every 6 hours as needed PRN Pain HYDROCODONE-ACETAMINOPHEN 81244595765 No Longer Active Abdirahman Rios MD Active GEMFIBROZIL 600 MG TABS 1 po BID GEMFIBROZIL 84004904 005 Active Abdirahman Rios MD Active PERCOCET 5-325 MG ORAL TABS 1 every 6 hours as needed OXYCODONE-ACETAMINOPHEN 35718607828 No Longer Active Abdirahman Rios MD Active PERCOCET 5-325 MG TAB 1 tab po q 6 -8 hours, prn for severe pain OXYCODONE-ACETAMINOPHEN 77292764717 No Longer Active Abdirahman Rios MD Active HYDROCODONE-ACETAMINOPHEN 5-325 MG TABS 1 po q6hr PRN pain 06/30 HYDROCODONE-ACETAMINOPHEN 05587115837 No Longer Active Hria Peraza l CLOUD ADMINISTRATOR Active GLUCOPHAGE 500 MG ORAL TABS one by mouth 3 times a day METFORMIN HCL 21994728376 No Longer Active Hira Moser CLOUD ADMINISTRATOR Ac tive PERCOCET 10-325 MG TABS 1 tab by mouth every 6 hours , use sparingly for severe pain OXYCODONE-ACETAMINOPHEN 23404214135 No Longer A ctive Abdirahman Rios MD Active EMLA 2.5-2.5 % EXT CREA apply to skin lesion q 6 hours, prn 2014 LIDOCAINE-PRILOCAINE 48970145187 No Longer Active Abdirahman Rios MD Active PERCOCET 10-325 MG ORAL TABS 1 every 4 hours as needed OXYCODONE-ACETAMINOPHEN 83625107914 No Longer Active Abdirahman Rios MD Active AUGMENTIN 875-125 MG TAB 1 tab by mouth twice daily with food 20 21/10/13 AMOXICILLIN-POT CLAVULANATE 52019018980 No Longer Active Ursula jasmina Frazell CLOUD ADMINISTRATOR Active PROAIR HFA 108 (90 BASE) MCG/ACT AERS 2 puff q 4-6 hrs PRN 01/24 ALBUTEROL SULFATE 83061481470 No Longer Active Kalpesh Dong MD Active PREDNISONE 20 MG TAB 2 tabs daily for 3 days, 1 t ab daily for 3 days, 1/2 tab daily for 2 days PREDNISONE 91520136308 No Longer Active Abdirahman Rios MD Active KEFLEX 500 MG CAP 1 po qid CEPHALEXIN 426712433 20 No Longer Active Kalpesh Dong MD Active PERCOCET 5-325 MG TAB 1 every 6 hours as needed OXYCODONE-ACETAMINOPHEN 56726495041 No Longer Active Shola MCGILL Active LC-5 LIDOCAINE 5 % CREA apply 1 time daily to affected area 2013 LIDOCAINE (ANORECTAL) 18096542803 No Longer Active Hira muniz CLOUD ADMINISTRATOR Active HYDROCODONE-ACETAMINOPHEN 10-325 MG TABS 1 by mouth ev chaka 8 hours as needed for pain HYDROCODONE-ACETAMINOPHEN 49422807375 No Longer Active Jillina Frazell CLOUD ADMINISTRATOR Active LORATADINE 10 MG TABS 1 tablet by mouth daily L ORATADINE 22155757369 No Longer Active Jillina Frazell CLOUD ADMINISTRATOR Active DIFLUCAN 150 MG TAB 1 qODay x 2 doses FLUCONAZO LE 14850364295 No Longer Active Jillina Frazell CLOUD ADMINISTRATOR Active CYCLOBENZAPRINE HCL 10 MG TABS 1/2 - 1 tab PO tid PRN back p ain, muscle spasm CYCLOBENZAPRINE HCL 87765014821 No Longer Active Karen Moser APRN Active AUGMENTIN 875-125 MG TAB 1 tab by mouth twice daily with food 20 22/05/07 AMOXICILLIN-POT CLAVULANATE 80419094564 No Longer Active Loida Rios MD Active MOBIC 15 MG TABS 1 tab daily MELOXICAM 993208181 14 No Longer Active Abdirahman Rios MD Active PERCOCET 7.5-325 MG TABS 1 PO tid PRN pain OXYCODONE-ACETAMINOPHEN 09360974714 No Longer Active Abdirahman Rios MD Active LIDODERM 5 % PTCH One patch to painful area AR N. On for 12 hrs, off for 12 hrs. LIDOCAINE 30673928904 No Longer Active Abdirahman Rios MD Active PERCOCET 7.5-325 MG TABS 1 PO q 8 hrs PRN pain OXYCODONE-ACETAMINOPHEN 88832412059 No Longer Active Shola MCGILL Active HYDROCODONE-ACETAMINOPHEN 7.5-325 MG TABS 1 by mouth e very 6 hours as needed for pain HYDROCODONE-ACETAMINOPHEN 91418959633 No Longer Active Good Julian MD Active CLINDAMYCIN HCL 300 MG CAPS 1 po QID x 7 days CLINDAMYCIN HCL 36970169372 No Longer Active Abdirahman Rios MD Activ e BACTRIM DS 800-160 MG TABS 1 po BID x 7 days 5 SULFAMETHOXAZOLE-TRIMETHOPRIM 92136179983 No Longer Active Abdirahman Rios MD Active ENDOCET 10-325 MG TABS 1 q 6 hr prn OXYCODONE-ACETAMINOPHEN 97580711713 No Longer Active Abdirahman Rios MD Active IBUPROFEN 800 MG TABS 1 tid prn IBUPROFEN 741073 60148 No Longer Active Abdirahman Rios MD Active BACTRIM DS 800-160 MG TABS by mouth twice a day 11/05 SULFAMETHOXAZOLE-TRIMETHOPRIM 74180152708 No Longer Active Good Julian MD Active HYDROCODONE-ACETAMINOPHEN 7.5-325 MG TABS 1 four times a day as needed for pain HYDROCODONE-ACETAMINOPHEN 86654850045 No Longer Activ e Good Julian MD Active KEFLEX 500 MG CAP 1 tab po tid CEPHALEXIN 499539 29039 No Longer Active Hira Moser APRN Active IBUPROFEN 800 MG TAB 1 pill three times daily as needed for pain IBUPROFEN 52599876048 No Longer Active Kalpesh Dong MD Active PROMETHAZINE-CODEINE 6.25-10 MG/5ML SYRP 1 tsp every 6 hrs prn c ough PROMETHAZINE-CODEINE 22325340698 No Longer Active Kalpesh Carr Active HYDROCODONE-ACETAMINOPHEN 5-325 MG TABS 1 tab by mouth every 6 hours as needed HYDROCODONE-ACETAMINOPHEN 86019880228 No Longer Activ e Shola MCGILL Active CEPHALEXIN 500 MG CAPS 1 PO bid x 7 days CEPHAL EXIN 99850656004 No Longer Active Shola MCGILL Active BACTRIM DS 800-160 MG TAB 1 tab by mouth twice daily 2 TRIMETHOPRIM-SULFAMETHOXAZOLE 30296616047 No Longer Active Kalpesh Dong MD Active HYDROCODONE-ACETAMINOPHEN 5-325 MG TABS 1 PO tid PRN pain 5 HYDROCODONE-ACETAMINOPHEN 13069347525 No Longer Active Abhinav Galvan MD Active IMPLANON 68 MG IMPL IMPLANTED IN LEFT ARM ETONO GESTREL 81886791323 No Longer Active Hira Moser APRN Active AMOXICILLIN 500 MG TABS 2 tabs PO bid x 10 d AM OXICILLIN 48512157532 No Longer Active Kalpesh Dong MD Active LEVAQUIN 500 MG TABS 1 PO q day x 7 days LEVOFL OXACIN 69640492730 No Longer Active Shola MCGILL Active AMITRIPTYLINE HCL 25 MG TAB 1 tab by mouth daily 60 minutes before bedtime AMITRIPTYLINE HCL 86899146968 No Longer Active Shola MCGILL Active LORTAB 5 5-500 MG TABS 1/2 to 1 tablet by mouth go ry 6 hours as needed for pain HYDROCODONE-ACETAMINOPHEN 06011087026 No Longer Active Shola MCGILL Active CEPHALEXIN 500 MG TABS Take one by mouth four times daily, morning, noon, early evening and bedtime. CEPHALEXIN 00248563013 No Long er Active Hira Moser APRN Active TYLENOL/CODEINE #3 300-30 MG TAB 1-2 po q6hr PRN Pain ACETAMINOPHEN-CODEINE 55855906681 No Longer Active Edilberto Marino DO Active PRISTIQ 50 MG [id number] 1 po qd DESVENLAFAXI NE SUCCINATE 94950770459 No Longer Active Edilberto Marino DO Active PENICILLIN V POTASSIUM 500 MG TAB 1 four times a day 2 PENICILLIN V POTASSIUM 67910987926 No Longer Active Edilberto Marino DO Active DOXYCYCLINE HYCLATE 100 MG CAPS Take one (1) tablet by mouth twice a day DOXYCYCLINE HYCLATE 28806518905 No Longer Active Ronnie Galvan MD Active HYDROCODONE-ACETAMINOPHEN 5-325 MG TABS 1 po q 6hr PRN Pain 2011 HYDROCODONE-ACETAMINOPHEN 91524633454 No Longer Active Patri joan Perez RN Active BACTRIM DS 800-160 MG TAB 1 tab by mouth twice daily 2 TRIMETHOPRIM-SULFAMETHOXAZOLE 52435701041 No Longer Active Kalpesh Dong MD Active LORTAB 5 5-500 MG TABS 1/2 to 1 tablet by mouth go ry 4 hours as needed for pain HYDROCODONE-ACETAMINOPHEN 04049455350 No Longer Active Kalpesh Dong MD Active GENERESS FE 0.8-25 MG-MCG CHEW Take one by mouth daily NORETHIN-ETH ESTRADIOL-FE 99014419026 No Longer Active Kalpesh Dong MD Active HYDROCODONE-ACETAMINOPHEN 7.5-500 MG TABS 1-2 every 4 hours as needed HYDROCODONE-ACETAMINOPHEN 95638672175 No Longer Activ e Kalpesh Dong MD Active FERROUS SULFATE 325 (65 FE) MG TABS 1 tablet by mouth twice yung y FERROUS SULFATE 98771342122 No Longer Active Kalpseh Dong MD Active IBUPROFEN 600 MG TAB 1 po q6-8hr PRN IBUPROFEN 96264911270 No Longer Active Kalpesh Dong MD Active SPIRONOLACTONE 25 MG TAB 1 tablet by mouth daily 01/22 SPIRONOLACTONE 19243837460 No Longer Active Kalpesh Dong MD Acti ve HYDROCODONE-ACETAMINOPHEN 7.5-325 MG TABS 1 po QID PRN Pain 2011 HYDROCODONE-ACETAMINOPHEN 64412218326 No Longer Active Kalpesh Dong MD Active CLINDAMYCIN HCL 300 MG CAPS 1 po q6hr x 7 days CLINDAMYCIN HCL 46196834080 No Longer Active Edilberto Marino DO Active PREDNISONE 20 MG TAB 2 tabs daily for 4 days, 1 t ab daily for 4 days, 1/2 tab daily for 4 days PREDNISONE 51294897954 No Longer Active Edilberto Marino DO Active PERCOCET 5-325 MG TABS 1 tablet by mouth every 6 hours as ne eded for pain OXYCODONE-ACETAMINOPHEN 18474147533 No Longer Active Abdirahman Rios MD Active VITAMINS TABS Take one by mouth daily MV & MIN W/FE-FA TABS 67820004461 No Longer Active Abdirahman Rios MD Active LUIS 3-0.02 MG TABS 1 tablet by mouth daily as directed DROSPIRENONE-ETHINYL ESTRADIOL 77152836526 No Longer Active Abdirahman Rios MD Active LORATADINE 10 MG TABS 1 tablet by mouth daily L ORATADINE 35202270687 No Longer Active Kalpesh Dong MD Active HYDROCODONE-ACETAMINOPHEN 5-325 MG TABS 1 po q 6hr PRN Pain 2010 HYDROCODONE-ACETAMINOPHEN 14312213765 No Longer Active Edilberto Marino DO Active BACTRIM DS 800-160 MG TAB 1 tab by mouth twice daily 2 TRIMETHOPRIM-SULFAMETHOXAZOLE 06712073564 No Longer Active Abdirahman Rios MD Active 28-0.8 MG TABS Take one by mouth daily 09/20 VIT-FE FUMARATE-FA 84328835309 No Longer Active Abdirahman Rios MD Active CIPRO 500 MG TAB 1 tablet by mouth twice daily CIPROFLOXACIN HCL 98744586000 No Longer Active Abdirahman Rios MD Active BENADRYL 25 MG CAP 1 po q8hr PRN Congestion DIPHENHYDRAMINE HCL 53523776561 No Longer Active Abdirahman Rios MD Active ZOLOFT 50 MG TAB 1 po qd SERTRALINE HCL 033574 35564 No Longer Active Abdirahman Rios MD Active AMOXICILLIN 875 MG TABS 1 tab by mouth twice daily 201 08/09/13 AMOXICILLIN 81177507022 No Longer Active Abdirahman Rios MD Activ e AMOXICILLIN 875 MG TABS 1 tab by mouth twice daily 201 07/19/27 AMOXICILLIN 55399021050 No Longer Active Abdirahman Rios MD Activ e BACTRIM DS 800-160 MG TAB 2 tab by mouth twice daily 2 TRIMETHOPRIM-SULFAMETHOXAZOLE 81697968759 No Longer Active Abdirahman Rios MD Active KEFLEX 500 MG CAP 1 po tid x 10 days CEPHALEXIN 23038398633 No Longer Active Abdirahman Rios MD Active AMOXICILLIN 875 MG TABS 1 tab by mouth twice daily 201 07/18/07 AMOXICILLIN 44315122140 No Longer Active Abdirahman Rios MD Activ e BACTRIM DS 800-160 MG TAB 2 tab by mouth twice daily 2 BACTRIM DS 800-160 MG TAB 950431 TRIMETHOPRIM-SULFAMETHOXAZOLE Inactive ZOLOFT 50 MG TAB 1 po qd ZOLOFT 50 MG TAB 3129 41 SERTRALINE HCL Inactive BENADRYL 25 MG CAP 1 po q8hr PRN Congestion BENADRYL 25 MG CAP 0989497 DIPHENHYDRAMINE HCL Inactive 28-0.8 MG TABS Take one by mouth daily 09/20 28-0.8 MG TABS VIT-FE FUMARATE-FA Inactive HYDROCODONE-ACETAMINOPHEN 5-325 MG TABS 1 po q 6hr PRN Pain 2010 HYDROCODONE-ACETAMINOPHEN 5-325 MG TABS 469050 HYDROCODONE-ACETAMINOPHEN Inactive LORATADINE 10 MG TABS 1 tablet by mouth daily LORATADINE 10 MG TABS 342380 LORATADINE Inactive LUIS 3-0.02 MG TABS 1 tablet by mouth daily as directed LUSI 3-0.02 MG TABS 278968 DROSPIRENONE-ETHINYL ESTRADIOL Inactive VITAMINS TABS Take one by mouth daily VITAMINS TABS MV & MIN W/FE-FA TABS Inactive PERCOCET 5-325 MG TABS 1 tablet by mouth every 6 hours as ne eded for pain PERCOCET 5-325 MG TABS 0988242 OXYCODONE-ACETAMIN OPHEN Inactive PREDNISONE 20 MG TAB 2 tabs daily for 4 days, 1 t ab daily for 4 days, 1/2 tab daily for 4 days PREDNISONE 20 MG TAB 532638 PREDNISON E Inactive CLINDAMYCIN HCL 300 MG CAPS 1 po q6hr x 7 days CLINDAMYCIN HCL 300 MG CAPS 097596 CLINDAMYCIN HCL Inactive HYDROCODONE-ACETAMINOPHEN 7.5-325 MG TABS 1 po QID PRN Pain 2011 HYDROCODONE-ACETAMINOPHEN 7.5-325 MG TABS 840723 HYDROCODONE-ACETAMINOPHEN Inactive SPIRONOLACTONE 25 MG TAB 1 tablet by mouth daily 01/22 SPIRONOLACTONE 25 MG TAB 285857 SPIRONOLACTONE Inactive IBUPROFEN 600 MG TAB 1 po q6-8hr PRN IBUPROFEN 600 MG TAB 086230 IBUPROFEN Inactive FERROUS SULFATE 325 (65 FE) MG TABS 1 tablet by mouth twice yung y FERROUS SULFATE 325 (65 FE) MG TABS 662311 FERROUS SULF ATE Inactive HYDROCODONE-ACETAMINOPHEN 7.5-500 MG TABS 1-2 every 4 hours as needed HYDROCODONE-ACETAMINOPHEN 7.5-500 MG TABS HYDROCODONE-ACETAMINOPHEN Inactive GENERESS FE 0.8-25 MG-MCG CHEW Take one by mouth daily GENERESS FE 0.8-25 MG-MCG CHEW [id number] NORETHIN-ETH ESTRADIOL-FE Inactive LORTAB 5 5-500 MG TABS 1/2 to 1 tablet by mouth go ry 4 hours as needed for pain LORTAB 5 5-500 MG TABS HYDROCODONE-A CETAMINOPHEN Inactive BACTRIM DS 800-160 MG TAB 1 tab by mouth twice daily 2 BACTRIM DS 800-160 MG TAB 205059 TRIMETHOPRIM-SULFAMETHOXAZOLE Inac tive HYDROCODONE-ACETAMINOPHEN 5-325 MG TABS 1 po q 6hr PRN Pain 2011 HYDROCODONE-ACETAMINOPHEN 5-325 MG TABS 088145 HYDROCODONE-ACETAMINOPHEN Inactive DOXYCYCLINE HYCLATE 100 MG CAPS Take one (1) tablet by mouth twice a day DOXYCYCLINE HYCLATE 100 MG CAPS 5118090 DOXYCYCLINE HYCLATE Inactive PENICILLIN V POTASSIUM 500 MG TAB 1 four times a day 2 PENICILLIN V POTASSIUM 500 MG TAB 404644 PENICILLIN V POTASSIUM Siri ctive PRISTIQ 50 MG [id number] 1 po qd PRISTIQ 50 MG [id number] DESVENLAFAXINE SUCCINATE Inactive TYLENOL/CODEINE #3 300-30 MG TAB 1-2 po q6hr PRN Pain TYLENOL/CODEINE #3 300-30 MG TAB 539552 ACETAMINOPHEN-CODEINE Inact krishna CEPHALEXIN 500 MG TABS Take one by mouth four times daily, morning, noon, early evening and bedtime. CEPHALEXIN 500 MG TABS 667636 CEPHALEXIN Inactive LORTAB 5 5-500 MG TABS 1/2 to 1 tablet by mouth go ry 6 hours as needed for pain LORTAB 5 5-500 MG TABS HYDROCODONE-A CETAMINOPHEN Inactive AMITRIPTYLINE HCL 25 MG TAB 1 tab by mouth daily 60 minutes before bedtime AMITRIPTYLINE HCL 25 MG TAB 527311 AMITRIPTYLINE HCL Inactive AMOXICILLIN 500 MG TABS 2 tabs PO bid x 10 d 7 AMOXICILLIN 500 MG TABS 879762 AMOXICILLIN Inactive IMPLANON 68 MG IMPL IMPLANTED IN LEFT ARM IMPLANON 68 MG IMPL ETONOGESTREL Inactive HYDROCODONE-ACETAMINOPHEN 5-325 MG TABS 1 PO tid PRN pain 5 HYDROCODONE-ACETAMINOPHEN 5-325 MG TABS 419448 HYDROCODONE-ACETAMIN OPHEN Inactive BACTRIM DS 800-160 MG TAB 1 tab by mouth twice daily 2 BACTRIM DS 800-160 MG TAB 724697 TRIMETHOPRIM-SULFAMETHOXAZOLE Inac tive CEPHALEXIN 500 MG CAPS 1 PO bid x 7 days CEPHALEXIN 500 MG CAPS 720880 CEPHALEXIN Inactive HYDROCODONE-ACETAMINOPHEN 5-325 MG TABS 1 tab by mouth every 6 hours as needed HYDROCODONE-ACETAMINOPHEN 5-325 MG TABS 527396 HYDROCODONE-ACETAMINOPHEN Inactive PROMETHAZINE-CODEINE 6.25-10 MG/5ML SYRP 1 tsp every 6 hrs prn c ough PROMETHAZINE-CODEINE 6.25-10 MG/5ML SYRP 685461 PROMETH AZINE-CODEINE Inactive IBUPROFEN 800 MG TAB 1 pill three times daily as needed for pain IBUPROFEN 800 MG TAB IBUPROFEN Inactive KEFLEX 500 MG CAP 1 tab po tid KEFLEX 500 MG CAP 584279 CEPHALEXIN Inactive HYDROCODONE-ACETAMINOPHEN 7.5-325 MG TABS 1 four times a day as needed for pain HYDROCODONE-ACETAMINOPHEN 7.5-325 MG TABS 703763 HYDROCODONE-ACETAMINOPHEN Inactive BACTRIM DS 800-160 MG TABS by mouth twice a day 11/05 BACTRIM DS 800-160 MG TABS 529210 SULFAMETHOXAZOLE-TRIMETHOPRIM Inactive IBUPROFEN 800 MG TABS 1 tid prn IBUPROFEN 800 MG TABS 300931 IBUPROFEN Inactive ENDOCET 10-325 MG TABS 1 q 6 hr prn ENDOC ET 10-325 MG TABS 1010191 OXYCODONE-ACETAMINOPHEN Inactive HYDROCODONE-ACETAMINOPHEN 7.5-325 MG TABS 1 by mouth e very 6 hours as needed for pain HYDROCODONE-ACETAMINOPHEN 7.5-325 MG TABS 032810 HYDROCODONE-ACETAMINOPHEN Inactive PERCOCET 7.5-325 MG TABS 1 PO q 8 hrs PRN pain PERCOCET 7.5-325 MG TABS 5756973 OXYCODONE-ACETAMINOPHEN Inactive LIDODERM 5 % PTCH One patch to painful area AR N. On for 12 hrs, off for 12 hrs. LIDODERM 5 % PTCH 4296983 LIDOCAINE Inactiv e PERCOCET 7.5-325 MG TABS 1 PO tid PRN pain PERCOCET 7.5- 325 MG TABS 9376209 OXYCODONE-ACETAMINOPHEN Inactive MOBIC 15 MG TABS 1 tab daily MOBIC 15 MG TABS 15 2695 MELOXICAM Inactive CYCLOBENZAPRINE HCL 10 MG TABS 1/2 - 1 tab PO tid PRN back p ain, muscle spasm CYCLOBENZAPRINE HCL 10 MG TABS 268419 CYCLOBENZA JOSEPH HCL Inactive LORATADINE 10 MG TABS 1 tablet by mouth daily LORATADINE 10 MG TABS 293615 LORATADINE Inactive HYDROCODONE-ACETAMINOPHEN 10-325 MG TABS 1 by mouth ev chaka 8 hours as needed for pain HYDROCODONE-ACETAMINOPHEN 10-325 MG TABS 739011 HYDROCODONE-ACETAMINOPHEN Inactive LC-5 LIDOCAINE 5 % CREA apply 1 time daily to affected area 2013 LC-5 LIDOCAINE 5 % CREA 4793635 LIDOCAINE (ANORECTAL) In active PERCOCET 5-325 MG TAB 1 every 6 hours as needed PERCOCET 5-325 MG TAB 1585420 OXYCODONE-ACETAMINOPHEN Inactive KEFLEX 500 MG CAP 1 po qid KEFLEX 500 MG CAP 30 9114 CEPHALEXIN Inactive PROAIR HFA 108 (90 BASE) MCG/ACT AERS 2 puff q 4-6 hrs PRN 01/24 PROAIR HFA 108 (90 BASE) MCG/ACT AERS ALBUTEROL SULFATE Inactive PERCOCET 10-325 MG ORAL TABS 1 every 4 hours as needed PERCOCET 10-325 MG ORAL TABS 8755124 OXYCODONE-ACETAMINOPHEN Inactiv e EMLA 2.5-2.5 % EXT CREA apply to skin lesion q 6 hours, prn 2014 EMLA 2.5-2.5 % EXT CREA 545664 LIDOCAINE-PRILOCAINE Siri ctive PERCOCET 10-325 MG TABS 1 tab by mouth every 6 hours , use sparingly for severe pain PERCOCET 10-325 MG TABS 1135689 OXYCODONE-ACETAMINOPHEN Inactive GLUCOPHAGE 500 MG ORAL TABS one by mouth 3 times a day GLUCOPHAGE 500 MG ORAL TABS 422818 METFORMIN HCL Inactive HYDROCODONE-ACETAMINOPHEN 5-325 MG TABS 1 po q6hr PRN pain 06/30 HYDROCODONE-ACETAMINOPHEN 5-325 MG TABS 319564 HYDROCOD ONE-ACETAMINOPHEN Inactive PERCOCET 5-325 MG TAB 1 tab po q 6 -8 hours, prn for severe pain PERCOCET 5-325 MG TAB [id number] OXYCODONE-ACETAMINOPHEN In active PERCOCET 5-325 MG ORAL TABS 1 every 6 hours as needed PERCOCET 5-325 MG ORAL TABS [id number] OXYCODONE-ACETAMINOPHEN Inactive DICLOFENAC SODIUM 50 MG TBEC 1 tablet by mouth four times da tom PRN Pain DICLOFENAC SODIUM 50 MG TBEC [id number] DICLOFENAC S ODIUM Inactive AUGMENTIN 500-125 MG ORAL TABS 1 by mouth twice a day AUGMENTIN 500-125 MG ORAL TABS [id number] AMOXICILLIN-POT CLAVULANATE I nactive HYDROCODONE-ACETAMINOPHEN 5-325 MG TABS 1 po q6hr PRN Pain 03/09 HYDROCODONE-ACETAMINOPHEN 5-325 MG TABS [id number] HYDROCOD ONE-ACETAMINOPHEN Inactive CYCLOBENZAPRINE HCL 10 MG TABS 1 tablet by mouth three times daily as needed for muscle spasm/pain CYCLOBENZAPRINE HCL 10 MG TABS [id number] 8 CYCLOBENZAPRINE HCL Inactive SPRINTEC 28 0.25-35 MG-MCG TABS 1 pill by mouth daily for bi rth control SPRINTEC 28 0.25-35 MG-MCG TABS [id number] NORGESTIMATE-ETH ESTRADIOL Inactive PERCOCET 5-325 MG TAB 1 tab po q 6 hours, prn severe pain PERCOCET 5-325 MG TAB [id number] OXYCODONE-ACETAMINOPHEN Inactive IBUPROFEN 600 MG ORAL TABS 1 by mouth twice a day 2014 IBUPROFEN 600 MG ORAL TABS [id number] IBUPROFEN Inactive CYMBALTA 30 MG CPEP 1 cap by mouth daily CYMBALTA 30 MG CPEP [id number] DULOXETINE HCL Inactive HYDROCODONE-ACETAMINOPHEN 5-325 MG TABS 1 po q6hr PRN Pain 04/09 HYDROCODONE-ACETAMINOPHEN 5-325 MG TABS [id number] HYDROCOD ONE-ACETAMINOPHEN Inactive TRAZODONE HCL 100 MG TAB 0.5 to 1 po qHS PRN Insomnia TRAZODONE HCL 100 MG TAB [id number] TRAZODONE HCL Inactive ALPRAZOLAM 0.5 MG TABS 1 po BID PRN Anxiety ALPRAZOLAM 0.5 MG TABS [id number] ALPRAZOLAM Inactive [id number] 50-325-40 MG ORAL CAPS 1-2 po TID AR N Headache [id number] 50-325-40 MG ORAL CAPS 2 [id number] Inactive HYDROCODONE-ACETAMINOPHEN 5-325 MG TABS 1 po TID PRN Pain 9 HYDROCODONE-ACETAMINOPHEN 5-325 MG TABS [id number] HYDROCODONE-ACETAMIN OPHEN Inactive PERCOCET 10-325 MG TABS 1 tablet every 8 hours as needed for antonia n PERCOCET 10-325 MG TABS [id number] OXYCODONE-ACETAMINOPHEN Inactive ONDANSETRON 4 MG TBDP 1 q4h PRN nausea ON DANSETRON 4 MG TBDP [id number] ONDANSETRON Inactive VIIBRYD 10 & 20 & 40 MG KIT 1 po qd as directed 07/24 VIIBRYD 10 & 20 & 40 MG KIT VILAZODONE HCL Inactive DICLOFENAC SODIUM 50 MG TBEC 1 tablet by mouth four times da tom PRN Pain DICLOFENAC SODIUM 50 MG TBEC [id number] DICLOFENAC S ODIUM Inactive PERCOCET 10-325 MG ORAL TABS one every 6 hours prn pain PERCOCET 10-325 MG ORAL TABS [id number] OXYCODONE-ACETAMINOPHEN Inactiv e PERCOCET 10-325 MG ORAL TABS take 1 tab by mouth q 4hours as needed for pain PERCOCET 10-325 MG ORAL TABS [id number] OXYCODONE-ACETAMINOPHEN Inactive FLONASE ALLERGY RELIEF 50 MCG/ACT NASAL SUSP One spray in each nostril twice a day. FLONASE ALLERGY RELIEF 50 MCG/ACT NASAL S LONGTERM 623784 FLUTICASONE PROPIONATE Inactive AUGMENTIN 875-125 MG TAB 1 tab by mouth twice daily with food 20 23/05/16 AUGMENTIN 875-125 MG TAB [id number] AMOXICILLIN-POT [place] Inactive HYDROCODONE-ACETAMINOPHEN 5-325 MG TABS 1 tab by mouth every 6 hours as needed for pain HYDROCODONE-ACETAMINOPHEN 5-325 MG TABS 8 06850 HYDROCODONE-ACETAMINOPHEN Inactive PERCOCET 10-325 MG TABS 1 tablet every 8 hours as needed for antonia n PERCOCET 10-325 MG TABS [id number] OXYCODONE-ACETAMINOPHEN Inactive LC-4 LIDOCAINE 4 % EXT CREA apply q 6 hours, prn 08/03 LC-4 LIDOCAINE 4 % EXT CREA [id number] LIDOCAINE Inactive PROMETHAZINE HCL 25 MG TABS 1 four times a day as needed for nausea/vomiting PROMETHAZINE HCL 25 MG TABS 195554 PROMETHAZINE HCL Inactive AMOXICILLIN 875 MG TABS 1 tab by mouth twice daily 201 07/18/07 AMOXICILLIN 875 MG TABS 799668 AMOXICILLIN Inactive KEFLEX 500 MG CAP 1 po tid x 10 days KEFLEX 500 MG CAP 331135 CEPHALEXIN Inactive AMOXICILLIN 875 MG TABS 1 tab by mouth twice daily 201 07/19/27 AMOXICILLIN 875 MG TABS 719046 AMOXICILLIN Inactive AMOXICILLIN 875 MG TABS 1 tab by mouth twice daily 201 08/09/13 AMOXICILLIN 875 MG TABS 365998 AMOXICILLIN Inactive CIPRO 500 MG TAB 1 tablet by mouth twice daily CIPRO 500 MG TAB 694072 CIPROFLOXACIN HCL Inactive BACTRIM DS 800-160 MG TAB 1 tab by mouth twice daily 2 BACTRIM DS 800-160 MG TAB 119576 TRIMETHOPRIM-SULFAMETHOXAZOLE Inac tive LEVAQUIN 500 MG TABS 1 PO q day x 7 days LEVAQUIN 500 MG TABS 985380 LEVOFLOXACIN Inactive CLINDAMYCIN HCL 300 MG CAPS 1 po QID x 7 days CLINDAMYCIN HCL 300 MG CAPS 597120 CLINDAMYCIN HCL Inactive AUGMENTIN 875-125 MG TAB 1 tab by mouth twice daily with food 20 22/05/07 AUGMENTIN 875-125 MG TAB 514565 AMOXICILLIN-POT [place] Inactive DIFLUCAN 150 MG TAB 1 qODay x 2 doses DIFLUCAN 150 MG TAB 574486 FLUCONAZOLE Inactive PREDNISONE 20 MG TAB 2 tabs daily for 3 days, 1 t ab daily for 3 days, 1/2 tab daily for 2 days PREDNISONE 20 MG TAB 449484 PREDNISON E Inactive AUGMENTIN 875-125 MG TAB 1 tab by mouth twice daily with food 21/10/13 AUGMENTIN 875-125 MG TAB 889827 AMOXICILLIN-POT [place] Inactive HYDROCODONE-ACETAMINOPHEN 5-325 MG TABS 1 tab by mouth every 6 hours as needed PRN Pain HYDROCODONE-ACETAMINOPHEN 5-325 MG TABS 8 61295 HYDROCODONE-ACETAMINOPHEN Inactive PROMETHAZINE HCL 25 MG TABS 1 four times a day as needed for nausea/vomiting PROMETHAZINE HCL 25 MG TABS 268801 PROMETHAZINE HCL Inactive Advance Directives Directive Description Start Date PERMISSION TO SHARE Immunizations Vaccine Administration Date Value Standard Alf cription Seasonal influenza vaccine, injectable, containing preservative, for > 3 years old (Afluria, FluLaval, Fluzone, Fluvirin, Fluarix, Agriflu(>= 18 yo)) Fluzone (>3 yrs.) [[id number]] Influenza, seasonal, inject able Seasonal influenza vaccine, injectable, preservative free, for > 3 years old (Afluria, FluLaval, Fluzone, Fluvirin, Fluarix, Agriflu(>= 18 yo)) Fluzone preservative free (>3 yrs.) [[id number]] Influenza, seasonal, injectable, preservative free Seasonal influenza vaccine, injectable, containing preservative, for > 3 years old (Afluria, FluLaval, Fluzone, Fluvirin, Fluarix, Agriflu(>= 18 yo)) Fluzone (>3 yrs.) [[id number]] Influenza, seasonal, inject able Seasonal influenza vaccine, injectable, containing preservative, for > 3 years old (Afluria, FluLaval, Fluzone, Fluvirin, Fluarix, Agriflu(>= 18 yo)) Fluzone (>3 yrs.) [[id number]] Influenza, seasonal, inject able dT (Diphtheria and [...] Panel - Chemistry sodium, serum 142 mmol/L 848-118 8747/05/12 potassium, serum 4.8 mmol/L 3.5-5.2 chloride, serum [...] ... - Chemistry sodium, serum 137 mmol/L 847-292 4593/02/24 carbon dioxide, venous blood 26.3 mmol/L 21.0-32 [...] Panel - Chemistry cholesterol, serum 181 mg/dL 754-222 1880/09/01 triglyceride, serum, fasting 341 mg/dL 30-200 HDL cholesterol, serum 22 mg/dL 32-96 LDL cholesterol, serum 91 mg/dL 0-130 cholesterol, serum 165 mg/dL 801-718 0749/05/12 triglyceride, serum, fasting 524 mg/dL 30-200 HDL [...] negative Encounters Code Encounter Date Provider Facility CPT-27953 Level 4 Est. Patient 16:38:26 [employer] Abdirahman Rios MD [facility] CPT-54785 Level 3 Est. Patient 05:31:41 [employer] Kalpesh goins MD [facility] CPT-54268 Level 3 Est. Patient 11:22:02 [employer] Hira muniz [facility] CPT-65700 Level 3 Est. Patient 21:00:18 [employer] Rajni danielson [facility] CPT-47281 Level 3 Est. Patient 14:15:00 [employer] Kalpesh goins MD [facility] CPT-96521 Level 2 Est. Patient 19:57:52 [employer] Rajni danielson [facility] CPT-75127 Level 3 Est. Patient 16:58:40 [employer] Bj funes MD [facility] CPT-53121 Level 3 Est. Patient 08:51:33 CDT Kalpesh goins MD [facility] CPT-93865 Level 4 Est. Patient 14:14:53 CDT Abdirahman Rios MD [facility] CPT-93505 Level 3 Est. Patient 15:47:40 CDT Kalpesh goins MD [facility] CPT-53601 Level 3 Est. Patient 10:57:26 CDT Abdirahman Rios MD [facility]-09754 Level 3 Est. Patient 14:29:53 CDT Abhinav Galvan MD [facility] CPT-24665 Level 2 Est. Patient 16:33:01 CDT Kalpesh goins MD [facility] CPT-64576 Level 4 Est. Patient 16:44:56 CDT Abdirahman Rios MD [facility] CPT-60515 Level 2 Est. Patient 07:49:32 CDT Kalpesh goins MD [facility] CPT-25121 Level 3 New Patient 15:47:11 [employer] Bj huber MD [facility]-99769 Level 4 Est. Patient 14:37:38 [employer] Abdirahman Rios MD [facility] CPT-49997 Level 2 Est. Patient 13:32:17 [employer] Kalpesh goins MD [facility] CPT-98054 Level 3 Est. Patient 17:32:57 [employer] Edilberto tiwari [facility] CPT-58670 Level 3 Est. Patient 17:22:33 [employer] Edilberto tiwari [facility] CPT-89556 Level 2 Est. Patient 16:57:09 [employer] Kalpesh goins MD [facility]-00067 Level 3 Est. Patient 14:03:08 [employer] Abdirahman Rios MD [facility] CPT-88905 Level 3 Est. Patient 18:12:34 CDT Shola Wright [facility] CPT-33404 Level 3 Est. Patient 19:34:46 CDT Shola Wright [facility] CPT-39165 Level 3 Est. Patient 14:19:37 CDT Abdirahman Rios MD [facility] CPT-46562 Level 3 Est. Patient 14:11:58 CDT Kalpesh goins MD [facility]-71859 Level 3 Est. Patient 16:50:00 CDT Michelle BRADFORDP [facility] CPT-01046 Level 3 Est. Patient 17:11:32 [employer] Brandie bates MD PhD [facility]-00067 Level 3 Est. Patient 16:31:47 [employer] Shola Wright [facility] CPT-57366 Level 3 Est. Patient 17:51:10 [employer] Abhinav Galvan MD [facility]-93946 Level 4 Est. Patient 12:54:56 [employer] Kalpesh goins MD [facility]-80455 Level 4 Est. Patient 12:53:56 [employer] Kalpesh goins MD [facility]-79953 Level 3 Est. Patient 17:56:58 CDT Shola Wright [facility] CPT-51815 Level 3 Est. Patient 14:26:20 CDT Janak butcher [facility] CPT-53125 Level 3 Est. Patient 09:38:41 CDT Shola Wright [facility] CPT-42260 Level 3 Est. Patient 14:45:26 CDT Edilberto tiwari [facility] CPT-85461 Level 3 Est. Patient 10:51:33 CDT [facility] Level 3 Est. Patient 11:57:55 [employer] Shola Wright [facility] CPT-02530 Level 3 Est. Patient 09:53:33 [employer] Edilberto tiwari [facility] CPT-63321 Level 3 Est. Patient 14:42:54 [employer] Abhinav Galvan MD [facility] CPT-89888 Level 3 Est. Patient 15:10:02 CDT Janak Stevenamira MCGILL [facility] CPT-94862 Level 3 Est. Patient 15:20:20 CDT Theo dennis MD [facility] CPT-35560 Level 2 Est. Patient 14:08:57 CDT Kalpesh goins MD [facility] CPT-74317 Level 3 Est. Patient 13:56:19 CDT Abdirahman Rios MD [facility] CPT-02345 Level 3 Est. Patient 13:59:37 CDT Abdirahman Rios MD [facility] CPT-99777 Level 2 Est. Patient 14:44:59 CDT Kalpesh goins MD [facility] CPT-86331 Level 3 Est. Patient 06:06:23 CDT Edilberto tiwari DO [facility] CPT-07787 Level 3 Est. Patient 15:23:54 CDT Abdirahman Rios MD [facility] CPT-43648 Level 3 Est. Patient 15:43:49 CDT Abdirahman Rios MD [facility] CPT-50296 Level 3 Est. Patient 12:46:47 [employer] Abdirahman Rios MD [facility] CPT-15457 Level 3 Est. Patient 08:13:35 [employer] Abdirahman Rios MD [facility] CPT-12719 Level 2 Est. Patient 09:36:42 [employer] Abdirahman Rios MD [facility] CPT-15095 Level 3 Est. Patient 10:56:43 CDT Abdirahman Rios MD [facility] CPT-46144 Level 3 Est. Patient 18:24:52 CDT Abdirahman Rios MD [facility] CPT-37399 Level 3 Est. Patient 13:27:22 CDT Abdirahman Rios MD [facility] Procedures Code Procedure Name Date Entry Date Standard Desc ription CPT-34608 Postop F/U Visit 17:09:41 [employer] CPT-16808 Postop F/U Visit 14:08:43 [employer] CPT-27056 Postop F/U Visit 15:18:16 [employer] CPT-27585 Postop F/U Visit 15:03:49 [employer] CPT-51153 Postop F/U Visit 14:45:23 [employer] CPT-44772 Postop F/U Visit 14:11:03 [employer] CPT-01115 Postop F/U Visit 18:21:21 [employer] CPT-24447 Postop F/U Visit 15:57:12 [employer] CPT-91457 Bladder Instillation 16:58:41 [employer] 6 CPT-32919 Fluzone Quadrivalent Intramuscular Suspe nsion 0.5 ML 15:20:56 [employer] CPT-23398 Immunization Single Admin 15:20:56 [employer] 2014 CPT-39575 Excis pilonidal cyst simple 08:51:34 CDT 20 22/04/20 CPT-20173 Venipuncture Draw Fee 14:27:29 CDT CPT-92026 Postop F/U Visit 15:27:43 CDT CPT-96893 Postop F/U Visit 14:40:59 CDT CPT-96013 Postop F/U Visit 15:02:46 CDT CPT-92450 Postop F/U Visit 11:29:00 [employer] CPT-J0696 Rocephin 1000 mg (Ceftriaxone) 17:22:33 [employer] CPT-40141 Postop F/U Visit 18:41:07 [employer] CPT-08969 Postop F/U Visit 08:19:08 [employer] CPT-76777 Immunization Single Admin 16:41:53 CDT 2013 CPT-02039 Fluzone Quadrivalent Intramuscular Suspe nsion 0.5 ML 16:41:53 CDT CPT-OV Office Visit 16:39:18 CDT CPT-OV Office Visit 16:16:36 CDT CPT-OV Office Visit 15:34:48 CDT CPT-38720 Postop F/U Visit 14:50:12 CDT CPT-33922 Postop F/U Visit 14:41:10 CDT CPT-62913 Venipuncture Draw Fee 11:38:04 [employer] CPT-21948 Postop F/U Visit 19:02:59 [employer] CPT-74419 Postop F/U Visit 12:04:54 [employer] CPT-87968 Administration single or combination vac cine inc oral 15:56:43 CDT CPT-05828 Influenza split virus > age 3 15:56:43 CDT CPT-63239 Hand comp min 3V 14:25:19 CDT CPT-93027 Postop F/U Visit 21:40:51 CDT CPT-74227 Postop F/U Visit 10:58:43 CDT CPT-90971 Administration single or combination vac cine inc oral 12:33:54 [employer] CPT-81749 Influenza Preservative Free split virus >age 3 12:33:54 [employer] CPT-59547 Administration single or combination vac cine inc oral 09:30:51 CDT CPT-71345 Influenza split virus > age 3 09:30:51 CDT CPT-89292 Postop F/U Visit 15:14:53 CDT CPT-03540 Postop F/U Visit 13:50:14 CDT CPT-25279 Postop F/U Visit 13:34:52 CDT CPT-OV Office Visit 16:55:03 CDT CPT-86373 [place] of cervix w bx ECC 13:32:50 CDT 10/19 CPT-J1885 Toradol 60 mg (Ketorolac) 15:31:59 CDT 2011 CPT-J1885 Toradol 60 mg (Ketorolac) 15:23:54 CDT 2011 CPT-24459 Visit 11:34:37 [employer] CPT-11915 Visit 10:52:39 [employer] CPT-86873 Visit 10:12:02 [employer] CPT-22461 Visit 11:22:43 [employer] CPT-12598 Visit 11:24:12 [employer] CPT-30106 Visit 10:47:05 [employer] CPT-OV Office Visit 10:26:16 [employer] CPT-OV Office Visit 15:34:31 [employer] CPT-45322 Visit 10:42:08 [employer] CPT-98603 Visit 10:52:45 [employer] CPT-000 Give Appropriate Flu Vaccine 16:56:41 CDT 2 CPT-41633 Administration single or combination vac cine inc oral 10:33:21 CDT CPT-83965 Influenza split virus > age 3 10:33:21 CDT CPT-52592 Visit 13:23:09 CDT CPT-12147 Visit 18:24:52 CDT CPT-02659 Sono OB comp > 14 weeks 12:07:49 CDT 04/07
--- OUTSIDE RECORDS SUMMARY | 2020-01-18 15:59 | XMS REPORT | Clinical Summary ---
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 Hypertriglyceridemia [...] Casas MD BACK PAIN ICD-724.5 Inactive Abdirahman Riso MD , NORMAL ICD-V22.2 Inactive Abdirahman sanchez [...] daily for bi rth control NORGESTIMATE-ETH ESTRADIOL 74132932020 Active Hira Moser APRN Active GLUCOPHAGE 500 MG ORAL TABS one by mouth 3 times a day METFORMIN HCL 29590190809 No Longer Active Hira Moser APRN Ac tive PERCOCET 10-325 MG TABS 1 tab by mouth every 6 hours , use sparingly for severe pain OXYCODONE-ACETAMINOPHEN 18050848115 No Longer A ctive Abdirahman Rios MD Active IBUPROFEN 600 MG ORAL TABS 1 by mouth twice a day IBUPROFEN 89475181635 Active ERNIE Higuera Active TRAZODONE HCL 100 MG TAB 0.5 to 1 po qHS PRN Insomnia TRAZODONE HCL 29283683426 Active Abdirahman Rios MD Active CYMBALTA 30 MG CPEP 1 cap by mouth daily DULOXE CLEO HCL 41893684508 Active Abdirahman Rios MD Active EMLA 2.5-2.5 % EXT CREA apply to skin lesion q 6 hours, prn 2014 LIDOCAINE-PRILOCAINE 07736308793 No Longer Active Abdirahman Rios MD Active HYDROCODONE-ACETAMINOPHEN 5-325 MG TABS 1 po q6hr PRN pain HYDROCODONE-ACETAMINOPHEN 51583227528 Active Abdirahman Rios MD Active PERCOCET 10-325 MG ORAL TABS 1 every 4 hours as needed OXYCODONE-ACETAMINOPHEN 08569143592 No Longer Active Abdirahman Rios MD Active [id number] 50-325-40 MG ORAL CAPS 1-2 po TID WA N Headache [id number] 77185370165 Active Abdirahman Rios MD Active AUGMENTIN 875-125 MG TAB 1 tab by mouth twice daily with food 20 21/10/13 AMOXICILLIN-POT CLAVULANATE 27042327412 No Longer Active Ursula Moser APRN Active PROAIR HFA 108 (90 BASE) MCG/ACT AERS 2 puff q 4-6 hrs PRN 01/24 ALBUTEROL SULFATE 64383009205 No Longer Active Kalpesh Dong MD Active ALPRAZOLAM 0.5 MG TABS 1 po BID PRN Anxiety ALPRA ZOLAM 10192714754 Active Abdirahman Rios MD Active CYCLOBENZAPRINE HCL 10 MG TABS 1 tablet by mouth three times daily as needed for muscle spasm/pain CYCLOBENZAPRINE HCL 35707910124 Active Abdirahman Rios MD Active PREDNISONE 20 MG TAB 2 tabs daily for 3 days, 1 t ab daily for 3 days, 1/2 tab daily for 2 days PREDNISONE 31984682660 No Longer Active Abdirahman Rios MD Active KEFLEX 500 MG CAP 1 po qid CEPHALEXIN 279181204 20 No Longer Active Kalpesh Dong MD Active PERCOCET 5-325 MG TAB 1 every 6 hours as needed OXYCODONE-ACETAMINOPHEN 63465573616 No Longer Active Shola MCGILL Active LC-5 LIDOCAINE 5 % CREA apply 1 time daily to affected area 2013 LIDOCAINE (ANORECTAL) 53748338366 No Longer Active Hira muniz APRN Active HYDROCODONE-ACETAMINOPHEN 10-325 MG TABS 1 by mouth ev chaka 8 hours as needed for pain HYDROCODONE-ACETAMINOPHEN 39566427856 No Longer Active Hira Moser APRN Active LORATADINE 10 MG TABS 1 tablet by mouth daily L ORATADINE 91413910943 No Longer Active 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 Frazell [employer]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 DIFLUCAN 150 MG TAB 1 qODay x 2 doses FLUCONAZO LE 57107870947 No Longer Active Jillina Frazell 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 On for 12 hrs, off for 12 hrs. LIDOCAINE 78951110165 No Longer Active Abdirahman Rios MD Active PERCOCET 7.5-325 MG TABS 1 PO q 8 hrs PRN pain OXYCODONE-ACETAMINOPHEN 00498497509 No Longer Active Shola MCGILL Active HYDROCODONE-ACETAMINOPHEN 7.5-325 MG TABS 1 by mouth e very 6 hours as needed for pain HYDROCODONE-ACETAMINOPHEN 25766389580 No Longer Active Good Julian MD Active CLINDAMYCIN HCL 300 MG CAPS 1 po QID x 7 days CLINDAMYCIN HCL 59304683757 No Longer Active Abdirahman Rios MD Activ e BACTRIM DS 800-160 MG TABS 1 po BID x 7 days 5 SULFAMETHOXAZOLE-TRIMETHOPRIM 16770347520 No Longer Active Abdirahman Rios MD Active ENDOCET 10-325 MG TABS 1 q 6 hr prn OXYCODONE-ACETAMINOPHEN 57812934500 No Longer Active Abdirahman Rios MD Active IBUPROFEN 800 MG TABS 1 tid prn IBUPROFEN 256218 51558 No Longer Active Abdirahman Rios MD Active BACTRIM DS 800-160 MG TABS by mouth twice a day 11/05 SULFAMETHOXAZOLE-TRIMETHOPRIM 72014077492 No Longer Active Good Julian MD Active HYDROCODONE-ACETAMINOPHEN 7.5-325 MG TABS 1 four times a day as needed for pain HYDROCODONE-ACETAMINOPHEN 01295873503 No Longer Activ e Good Julian MD Active KEFLEX 500 MG CAP 1 tab po tid CEPHALEXIN 984353 08120 No Longer Active Hira Moser APRN Active IBUPROFEN 800 MG TAB 1 pill three times daily as needed for pain IBUPROFEN 49688918656 No Longer Active Kalpesh Dong MD Active PROMETHAZINE-CODEINE 6.25-10 MG/5ML SYRP 1 tsp every 6 hrs prn c ough PROMETHAZINE-CODEINE 40202492207 No Longer Active Kalpesh Carr Active HYDROCODONE-ACETAMINOPHEN 5-325 MG TABS 1 tab by mouth every 6 hours as needed HYDROCODONE-ACETAMINOPHEN 95535050990 No Longer Activ e Shola MCGILL Active CEPHALEXIN 500 MG CAPS 1 PO bid x 7 days CEPHAL EXIN 98792058572 No Longer Active Shola MCGILL Active BACTRIM DS 800-160 MG TAB 1 tab by mouth twice daily 2 TRIMETHOPRIM-SULFAMETHOXAZOLE 18848248798 No Longer Active Kalpesh Dong MD Active HYDROCODONE-ACETAMINOPHEN 5-325 MG TABS 1 PO tid PRN pain 5 HYDROCODONE-ACETAMINOPHEN 54192950078 No Longer Active Abhinav Galvan MD Active IMPLANON 68 MG IMPL IMPLANTED IN LEFT ARM ETONO GESTREL 44180281499 No Longer Active Hira Moser APRN Active AMOXICILLIN 500 MG TABS 2 tabs PO bid x 10 d AM OXICILLIN 38734529667 No Longer Active Kalpesh Dong MD Active LEVAQUIN 500 MG TABS 1 PO q day x 7 days LEVOFL OXACIN 56976954682 No Longer Active Shola MCGILL Active AMITRIPTYLINE HCL 25 MG TAB 1 tab by mouth daily 60 minutes before bedtime AMITRIPTYLINE HCL 93296802658 No Longer Active Shola MCGILL Active LORTAB 5 5-500 MG TABS 1/2 to 1 tablet by mouth go ry 6 hours as needed for pain HYDROCODONE-ACETAMINOPHEN 07440079821 No Longer Active Shola MCGILL Active CEPHALEXIN 500 MG TABS Take one by mouth four times daily, morning, noon, early evening and bedtime. CEPHALEXIN 10843774912 No Long er Active Hira Moser APRN Active TYLENOL/CODEINE #3 300-30 MG TAB 1-2 po q6hr PRN Pain ACETAMINOPHEN-CODEINE 80401123914 No Longer Active Edilberto Marino DO Active PRISTIQ 50 MG [id number] 1 po qd DESVENLAFAXI NE SUCCINATE 51287162964 No Longer Active Edilberto Marino DO Active PENICILLIN V POTASSIUM 500 MG TAB 1 four times a day 2 PENICILLIN V POTASSIUM 48672971959 No Longer Active Edilberto Marino DO Active DOXYCYCLINE HYCLATE 100 MG CAPS Take one (1) tablet by mouth twice a day DOXYCYCLINE HYCLATE 27205171219 No Longer Active Ronnie Galvan MD Active HYDROCODONE-ACETAMINOPHEN 5-325 MG TABS 1 po q 6hr PRN Pain 2011 HYDROCODONE-ACETAMINOPHEN 00059859789 No Longer Active Patri joan Perez RN Active BACTRIM DS 800-160 MG TAB 1 tab by mouth twice daily 2 TRIMETHOPRIM-SULFAMETHOXAZOLE 24202845119 No Longer Active Kalpesh Dong MD Active LORTAB 5 5-500 MG TABS 1/2 to 1 tablet by mouth go ry 4 hours as needed for pain HYDROCODONE-ACETAMINOPHEN 70048151108 No Longer Active Kalpesh Dong MD Active GENERESS FE 0.8-25 MG-MCG CHEW Take one by mouth daily NORETHIN-ETH ESTRADIOL-FE 35769527611 No Longer Active Kalpesh Dong MD Active HYDROCODONE-ACETAMINOPHEN 7.5-500 MG TABS 1-2 every 4 hours as needed HYDROCODONE-ACETAMINOPHEN 93513259111 No Longer Activ e Kalpesh Dong MD Active FERROUS SULFATE 325 (65 FE) MG TABS 1 tablet by mouth twice yung y FERROUS SULFATE 43357203676 No Longer Active Kalpesh Dong MD Active IBUPROFEN 600 MG TAB 1 po q6-8hr PRN IBUPROFEN 34840879839 No Longer Active Kalpesh Dong MD Active SPIRONOLACTONE 25 MG TAB 1 tablet by mouth daily 01/22 SPIRONOLACTONE 28831072810 No Longer Active Kalpesh Dong MD Acti ve HYDROCODONE-ACETAMINOPHEN 7.5-325 MG TABS 1 po QID PRN Pain 2011 HYDROCODONE-ACETAMINOPHEN 88269333491 No Longer Active Kalpesh Dong MD Active CLINDAMYCIN HCL 300 MG CAPS 1 po q6hr x 7 days CLINDAMYCIN HCL 52367456047 No Longer Active Edilberto Marino DO Active PREDNISONE 20 MG TAB 2 tabs daily for 4 days, 1 t ab daily for 4 days, 1/2 tab daily for 4 days PREDNISONE 74005130837 No Longer Active Edilberto Marino DO Active PERCOCET 5-325 MG TABS 1 tablet by mouth every 6 hours as ne eded for pain OXYCODONE-ACETAMINOPHEN 69905696053 No Longer Active Abdirahman Rios MD Active VITAMINS TABS Take one by mouth daily MV & MIN W/FE-FA TABS 22089557758 No Longer Active Abdirahman Rios MD Active LUIS 3-0.02 MG TABS 1 tablet by mouth daily as directed DROSPIRENONE-ETHINYL ESTRADIOL 49000989636 No Longer Active Abdirahman Rios MD Active LORATADINE 10 MG TABS 1 tablet by mouth daily L ORATADINE 80447180077 No Longer Active Kalpesh Dong MD Active HYDROCODONE-ACETAMINOPHEN 5-325 MG TABS 1 po q 6hr PRN Pain 2010 HYDROCODONE-ACETAMINOPHEN 18074092593 No Longer Active Edilberto Marino DO Active BACTRIM DS 800-160 MG TAB 1 tab by mouth twice daily 2 TRIMETHOPRIM-SULFAMETHOXAZOLE 63325305578 No Longer Active Abdirahman Rios MD Active 28-0.8 MG TABS Take one by mouth daily 09/20 VIT-FE FUMARATE-FA 20138803545 No Longer Active Abdirahman Rios MD Active CIPRO 500 MG TAB 1 tablet by mouth twice daily CIPROFLOXACIN HCL 13811663645 No Longer Active Abdirahman Rios MD Active BENADRYL 25 MG CAP 1 po q8hr PRN Congestion DIPHENHYDRAMINE HCL 20955255731 No Longer Active Abdirahman Rios MD Active ZOLOFT 50 MG TAB 1 po qd SERTRALINE HCL 802691 11624 No Longer Active Abdirahman Rios MD Active AMOXICILLIN 875 MG TABS 1 tab by mouth twice daily 201 08/09/13 AMOXICILLIN 74250758975 No Longer Active Abdirahman Rios MD Activ e AMOXICILLIN 875 MG TABS 1 tab by mouth twice daily 201 07/19/27 AMOXICILLIN 97959143411 No Longer Active Abdirahman Rios MD Activ e BACTRIM DS 800-160 MG TAB 2 tab by mouth twice daily 2 TRIMETHOPRIM-SULFAMETHOXAZOLE 33511752060 No Longer Active Abdirahman Rios MD Active KEFLEX 500 MG CAP 1 po tid x 10 days CEPHALEXIN 53097882688 No Longer Active Abdirahman Rios MD Active AMOXICILLIN 875 MG TABS 1 tab by mouth twice daily 201 07/18/07 AMOXICILLIN 56903391627 No Longer Active Abdirahman Rios MD Activ e BACTRIM DS 800-160 MG TAB 2 tab by mouth twice daily 2 BACTRIM DS 800-160 MG TAB TRIMETHOPRIM-SULFAMETHOXAZOLE Inactive ZOLOFT 50 MG TAB 1 po qd ZOLOFT 50 MG TAB 3129 41 SERTRALINE HCL Inactive BENADRYL 25 MG CAP 1 po q8hr PRN Congestion BENADRYL 25 MG CAP 8919531 DIPHENHYDRAMINE HCL Inactive 28-0.8 MG TABS Take one by mouth daily 09/20 28-0.8 MG TABS VIT-FE FUMARATE-FA Inactive HYDROCODONE-ACETAMINOPHEN 5-325 MG TABS 1 po q 6hr PRN Pain 2010 HYDROCODONE-ACETAMINOPHEN 5-325 MG TABS 913062 HYDROCODONE-ACETAMINOPHEN Inactive LORATADINE 10 MG TABS 1 tablet by mouth daily LORATADINE 10 MG TABS 126829 LORATADINE Inactive LUIS 3-0.02 MG TABS 1 tablet by mouth daily as directed LUIS 3-0.02 MG TABS DROSPIRENONE-ETHINYL ESTRADIOL Inactive VITAMINS TABS Take one by mouth daily VITAMINS TABS MV & MIN W/FE-FA TABS Inactive PERCOCET 5-325 MG TABS 1 tablet by mouth every 6 hours as ne eded for pain PERCOCET 5-325 MG TABS 4573209 OXYCODONE-ACETAMIN OPHEN Inactive PREDNISONE 20 MG TAB 2 tabs daily for 4 days, 1 t ab daily for 4 days, 1/2 tab daily for 4 days PREDNISONE 20 MG TAB 636128 PREDNISON E Inactive CLINDAMYCIN HCL 300 MG CAPS 1 po q6hr x 7 days CLINDAMYCIN HCL 300 MG CAPS 449665 CLINDAMYCIN HCL Inactive HYDROCODONE-ACETAMINOPHEN 7.5-325 MG TABS 1 po QID PRN Pain 2011 HYDROCODONE-ACETAMINOPHEN 7.5-325 MG TABS 219663 HYDROCODONE-ACETAMINOPHEN Inactive SPIRONOLACTONE 25 MG TAB 1 tablet by mouth daily 01/22 SPIRONOLACTONE 25 MG TAB 145726 SPIRONOLACTONE Inactive IBUPROFEN 600 MG TAB 1 po q6-8hr PRN IBUPROFEN 600 MG TAB 485897 IBUPROFEN Inactive FERROUS SULFATE 325 (65 FE) MG TABS 1 tablet by mouth twice yung y FERROUS SULFATE 325 (65 FE) MG TABS 983600 FERROUS SULF ATE Inactive HYDROCODONE-ACETAMINOPHEN 7.5-500 MG TABS 1-2 every 4 hours as needed HYDROCODONE-ACETAMINOPHEN 7.5-500 MG TABS HYDROCODONE-ACETAMINOPHEN Inactive GENERESS FE 0.8-25 MG-MCG CHEW Take one by mouth daily GENERESS FE 0.8-25 MG-MCG CHEW 5738970 NORETHIN-ETH ESTRADIOL-FE Inactive LORTAB 5 5-500 MG [...] PRN Pain 2011 HYDROCODONE-ACETAMINOPHEN 5-325 MG TABS 454220 HYDROCODONE-ACETAMINOPHEN Inactive DOXYCYCLINE HYCLATE 100 MG CAPS Take one (1) tablet by mouth twice a day DOXYCYCLINE HYCLATE 100 MG CAPS 5662138 DOXYCYCLINE HYCLATE Inactive PENICILLIN V POTASSIUM 500 MG TAB 1 four times a day 2 PENICILLIN V POTASSIUM 500 MG TAB 390875 PENICILLIN V POTASSIUM Siri ctive PRISTIQ 50 MG [id number] 1 po qd PRISTIQ 50 MG [id number] DESVENLAFAXINE SUCCINATE Inactive TYLENOL/CODEINE #3 300-30 MG TAB 1-2 po q6hr PRN Pain TYLENOL/CODEINE #3 300-30 MG TAB 813201 ACETAMINOPHEN-CODEINE Inact krishna CEPHALEXIN 500 MG TABS Take one by mouth four times daily, morning, noon, early evening and bedtime. CEPHALEXIN 500 MG TABS 142911 CEPHALEXIN Inactive LORTAB 5 5-500 MG TABS 1/2 to 1 tablet by mouth go ry 6 hours as needed for pain LORTAB 5 5-500 MG TABS HYDROCODONE-A CETAMINOPHEN Inactive AMITRIPTYLINE HCL 25 MG TAB 1 tab by mouth daily 60 minutes before bedtime AMITRIPTYLINE HCL 25 MG TAB 792054 AMITRIPTYLINE HCL Inactive AMOXICILLIN 500 MG TABS 2 tabs PO bid x 10 d 7 AMOXICILLIN 500 MG TABS 421921 AMOXICILLIN Inactive IMPLANON 68 MG IMPL IMPLANTED IN LEFT ARM IMPLANON 68 MG IMPL ETONOGESTREL Inactive HYDROCODONE-ACETAMINOPHEN 5-325 MG TABS 1 PO tid PRN pain 5 HYDROCODONE-ACETAMINOPHEN 5-325 MG TABS 031334 HYDROCODONE-ACETAMIN OPHEN Inactive BACTRIM DS 800-160 MG TAB 1 tab by mouth twice daily 2 BACTRIM DS 800-160 MG TAB TRIMETHOPRIM-SULFAMETHOXAZOLE Inac tive CEPHALEXIN 500 MG CAPS 1 PO bid x 7 days CEPHALEXIN 500 MG CAPS 907958 CEPHALEXIN Inactive HYDROCODONE-ACETAMINOPHEN 5-325 MG TABS 1 tab by mouth every 6 hours as needed HYDROCODONE-ACETAMINOPHEN 5-325 MG TABS 359233 HYDROCODONE-ACETAMINOPHEN Inactive PROMETHAZINE-CODEINE 6.25-10 MG/5ML SYRP 1 tsp every 6 hrs prn c ough PROMETHAZINE-CODEINE 6.25-10 MG/5ML SYRP 580945 PROMETH AZINE-CODEINE Inactive IBUPROFEN 800 MG TAB 1 pill three times daily as needed for pain IBUPROFEN 800 MG TAB 648179 IBUPROFEN Inactive KEFLEX 500 MG CAP 1 tab po tid KEFLEX 500 MG CAP 756364 CEPHALEXIN Inactive HYDROCODONE-ACETAMINOPHEN 7.5-325 MG TABS 1 four times a day as needed for pain HYDROCODONE-ACETAMINOPHEN 7.5-325 MG TABS 071339 HYDROCODONE-ACETAMINOPHEN Inactive BACTRIM DS 800-160 MG TABS by mouth twice a day 11/05 BACTRIM DS 800-160 MG TABS SULFAMETHOXAZOLE-TRIMETHOPRIM Inactive IBUPROFEN 800 MG TABS 1 tid prn IBUPROFEN 800 MG TABS 949141 IBUPROFEN Inactive ENDOCET 10-325 MG TABS 1 q 6 hr prn ENDOC ET 10-325 MG TABS 4575551 OXYCODONE-ACETAMINOPHEN Inactive HYDROCODONE-ACETAMINOPHEN 7.5-325 MG TABS 1 by mouth e very 6 hours as needed for pain HYDROCODONE-ACETAMINOPHEN 7.5-325 MG TABS 630056 HYDROCODONE-ACETAMINOPHEN Inactive PERCOCET 7.5-325 MG TABS 1 PO q 8 hrs PRN pain PERCOCET 7.5-325 MG TABS 1453935 OXYCODONE-ACETAMINOPHEN Inactive LIDODERM 5 % PTCH One patch to painful area [place] N. On for 12 hrs, off for 12 hrs. LIDODERM 5 % PTCH 0794371 LIDOCAINE Inactiv e PERCOCET 7.5-325 MG TABS 1 PO tid PRN pain PERCOCET 7.5- 325 MG TABS 2610718 OXYCODONE-ACETAMINOPHEN Inactive MOBIC 15 MG TABS 1 tab daily MOBIC 15 MG TABS 15 2695 MELOXICAM Inactive CYCLOBENZAPRINE HCL 10 MG TABS 1/2 - 1 tab PO tid PRN back p ain, muscle spasm CYCLOBENZAPRINE HCL 10 MG TABS 883186 CYCLOBENZA JOSEPH HCL Inactive LORATADINE 10 MG TABS 1 tablet by mouth daily LORATADINE 10 MG TABS 372220 LORATADINE Inactive HYDROCODONE-ACETAMINOPHEN 10-325 MG TABS 1 by mouth ev chaka 8 hours as needed for pain HYDROCODONE-ACETAMINOPHEN 10-325 MG TABS 513160 HYDROCODONE-ACETAMINOPHEN Inactive LC-5 LIDOCAINE 5 % CREA apply 1 time daily to affected area 2013 LC-5 LIDOCAINE 5 % CREA LIDOCAINE (ANORECTAL) In active PERCOCET 5-325 MG TAB 1 every 6 hours as needed PERCOCET 5-325 MG TAB 8083597 OXYCODONE-ACETAMINOPHEN Inactive KEFLEX 500 MG CAP 1 po qid KEFLEX 500 MG CAP 30 9114 CEPHALEXIN Inactive PROAIR HFA 108 (90 BASE) MCG/ACT AERS 2 puff q 4-6 hrs PRN 01/24 PROAIR HFA 108 (90 BASE) MCG/ACT AERS ALBUTEROL SULFATE Inactive PERCOCET 10-325 MG ORAL TABS 1 every 4 hours as needed PERCOCET 10-325 MG ORAL TABS 3159602 OXYCODONE-ACETAMINOPHEN Inactiv e EMLA 2.5-2.5 % EXT CREA apply to skin lesion q 6 hours, prn 2014 EMLA 2.5-2.5 % EXT CREA 474408 LIDOCAINE-PRILOCAINE Jupiter ctive PERCOCET 10-325 MG TABS 1 tab by mouth every 6 hours , use sparingly for severe pain PERCOCET 10-325 MG TABS 1704098 OXYCODONE-ACETAMINOPHEN Inactive GLUCOPHAGE 500 MG ORAL TABS one by mouth 3 times a day GLUCOPHAGE 500 MG ORAL TABS 116111 METFORMIN HCL Inactive AMOXICILLIN 875 MG TABS 1 tab by mouth twice daily 201 07/18/07 AMOXICILLIN 875 MG TABS 958340 AMOXICILLIN Inactive KEFLEX 500 MG CAP 1 po tid x 10 days KEFLEX 500 MG CAP 231993 CEPHALEXIN Inactive AMOXICILLIN 875 MG TABS 1 tab by mouth twice daily 201 07/19/27 AMOXICILLIN 875 MG TABS 044720 AMOXICILLIN Inactive AMOXICILLIN 875 MG TABS 1 tab by mouth twice daily 201 08/09/13 AMOXICILLIN 875 MG TABS 242527 AMOXICILLIN Inactive CIPRO 500 MG TAB 1 tablet by mouth twice daily CIPRO 500 MG TAB 531957 CIPROFLOXACIN HCL Inactive BACTRIM DS 800-160 MG TAB 1 tab by mouth twice daily 2 BACTRIM DS 800-160 MG TAB TRIMETHOPRIM-SULFAMETHOXAZOLE Inac tive LEVAQUIN 500 MG TABS 1 PO q day x 7 days LEVAQUIN 500 MG TABS 396640 LEVOFLOXACIN Inactive CLINDAMYCIN HCL 300 MG CAPS 1 po QID x 7 days CLINDAMYCIN HCL 300 MG CAPS 868918 CLINDAMYCIN HCL Inactive AUGMENTIN 875-125 MG TAB 1 tab by mouth twice daily with food 20 22/05/07 AUGMENTIN 875-125 MG TAB 793962 AMOXICILLIN-POT CLAVULA [place] Inactive DIFLUCAN 150 MG TAB 1 qODay x 2 doses DIFLUCAN 150 MG TAB 187540 FLUCONAZOLE Inactive PREDNISONE 20 MG TAB 2 tabs daily for 3 days, 1 t ab daily for 3 days, 1/2 tab daily for 2 days PREDNISONE 20 MG TAB 547865 PREDNISON E Inactive AUGMENTIN 875-125 MG TAB 1 tab by mouth twice daily with food 20 21/10/13 AUGMENTIN 875-125 MG TAB 585554 AMOXICILLIN-POT CLAVULA [place] Inactive Advance Directives Directive Description Start Date PERMISSION TO SHARE Immunizations Vaccine Administration Date Value Standard Alf cription Seasonal influenza vaccine, injectable, containing preservative, for > 3 years old (Afluria, FluLaval, Fluzone, Fluvirin, Fluarix, Agriflu(>= 18 yo)) Fluzone (>3 yrs.) [[id number]] Influenza, seasonal, inject able Seasonal influenza vaccine, injectable, preservative free, for > 3 years old (Afluria, FluLaval, Fluzone, Fluvirin, Fluarix, Agriflu(>= 18 yo)) Fluzone preservative free (>3 yrs.) [[id number]] Influenza, seasonal, injectable, preservative free Seasonal influenza vaccine, injectable, containing preservative, for > 3 years old (Afluria, FluLaval, Fluzone, Fluvirin, Fluarix, Agriflu(>= 18 yo)) Fluzone (>3 yrs.) [[id number]] Influenza, seasonal, inject able Seasonal influenza vaccine, injectable, containing preservative, for > 3 years old (Afluria, FluLaval, Fluzone, Fluvirin, Fluarix, Agriflu(>= 18 yo)) Fluzone (>3 yrs.) [[id number]] Influenza, seasonal, inject able dT (Diphtheria and [...] Panel - Chemistry sodium, serum 142 mmol/L 603-064 1666/05/12 potassium, serum 4.8 mmol/L 3.5-5.2 chloride, serum [...] Panel - Chemistry cholesterol, serum 165 mg/dL 454-439 1400/05/12 triglyceride, serum, fasting 524 mg/dL 30-200 HDL [...] negative Encounters Code Encounter Date Provider Facility CPT-65365 Level 3 Est. Patient 14:29:53 CDT Abhinav Galvan MD [facility] CPT-88383 Level 2 Est. Patient 16:33:01 CDT Kalpesh goins MD [facility]-86750 Level 4 Est. Patient 16:44:56 CDT Abdirahman Rios MD [facility] CPT-25600 Level 2 Est. Patient 07:49:32 CDT Kalpesh goins MD [facility] CPT-39654 Level 3 New Patient 15:47:11 QUALITY LIAISON Bj huber MD [facility] CPT-60920 Level 4 Est. Patient 14:37:38 QUALITY LIAISON Abdirahman Rios MD [facility]-52189 Level 2 Est. Patient 13:32:17 QUALITY LIAISON Kalpesh goins MD [facility]-03755 Level 3 Est. Patient 17:32:57 QUALITY LIAISON Edilberto tiwari [facility] CPT-99016 Level 3 Est. Patient 17:22:33 QUALITY LIAISON Edilberto tiwari [facility] CPT-68339 Level 2 Est. Patient 16:57:09 QUALITY LIAISON Kalpesh goins MD [facility]-35725 Level 3 Est. Patient 14:03:08 QUALITY LIAISON Abdirahman Rios MD [facility] CPT-12632 Level 3 Est. Patient 18:12:34 CDT Shola Wright [facility] CPT-98814 Level 3 Est. Patient 19:34:46 CDT Shola Wright [facility] CPT-84386 Level 3 Est. Patient 14:19:37 CDT Abdirahman Rios MD [facility]-18402 Level 3 Est. Patient 14:11:58 CDT Kalpesh goins MD [facility]-38164 Level 3 Est. Patient 16:50:00 CDT Maliheh Z iglari [facility] CPT-79584 Level 3 Est. Patient 17:11:32 QUALITY LIAISON Brandie bates MD PhD [facility]-94715 Level 3 Est. Patient 16:31:47 QUALITY LIAISON Shola Wright [facility] CPT-03503 Level 3 Est. Patient 17:51:10 QUALITY LIAISON Abhinav Galvan MD [facility]-59940 Level 4 Est. Patient 12:54:56 QUALITY LIAISON Kalpesh goins MD [facility]-96228 Level 4 Est. Patient 12:53:56 QUALITY LIAISON Kalpesh goins MD [facility]-83495 Level 3 Est. Patient 17:56:58 CDT Shola Wright [facility] CPT-55254 Level 3 Est. Patient 14:26:20 CDT Janak Maurizioamira butcher [facility] CPT-15060 Level 3 Est. Patient 09:38:41 CDT Shola Houghsabi [facility] CPT-30058 Level 3 Est. Patient 14:45:26 CDT Edilberto tiwari [facility]-69545 Level 3 Est. Patient 10:51:33 CDT Hira muniz [facility]-22622 Level 3 Est. Patient 11:57:55 QUALITY LIAISON Shola Wright [facility]-13166 Level 3 Est. Patient 09:53:33 QUALITY LIAISON Edilberto tiwari [facility] CPT-30786 Level 3 Est. Patient 14:42:54 QUALITY LIAISON Abhinav Galvan MD [facility]-41996 Level 3 Est. Patient 15:10:02 CDT Janak Stevenamira butcher [facility] CPT-63206 Level 3 Est. Patient 15:20:20 CDT Theo dennis MD [facility] CPT-50260 Level 2 Est. Patient 14:08:57 CDT Kalpesh goins MD [facility] CPT-80279 Level 3 Est. Patient 13:56:19 CDT Abdirahman Rios MD [facility] CPT-97750 Level 3 Est. Patient 13:59:37 CDT Abdirahman Rios MD [facility] CPT-15126 Level 2 Est. Patient 14:44:59 CDT Kalpesh goins MD [facility] CPT-47988 Level 3 Est. Patient 06:06:23 CDT Edilberto tiwari DO [facility] CPT-66466 Level 3 Est. Patient 15:23:54 CDT Abdirahman Rios MD [facility] CPT-90551 Level 3 Est. Patient 15:43:49 CDT Abdirahman Rios MD [facility] CPT-75285 Level 3 Est. Patient 12:46:47 QUALITY LIAISON Abdirahman Rios MD [facility] CPT-66125 Level 3 Est. Patient 08:13:35 QUALITY LIAISON Abdirahman Rios MD [facility] CPT-25053 Level 2 Est. Patient 09:36:42 QUALITY LIAISON Abdirahman Rios MD [facility] CPT-75835 Level 3 Est. Patient 10:56:43 CDT Abdirahman Rios MD [facility] CPT-29238 Level 3 Est. Patient 18:24:52 CDT Abdirahman Rios MD [facility] CPT-52596 Level 3 Est. Patient 13:27:22 CDT Abdirahman Rios MD [facility] Procedures Code Procedure Name Date Entry Date Standard Desc ription CPT-57352 Postop F/U Visit 15:27:43 CDT CPT-41138 Postop F/U Visit 14:40:59 CDT CPT-95416 Postop F/U Visit 15:02:46 CDT CPT-85788 Postop F/U Visit 11:29:00 QUALITY LIAISON CPT-J0696 Rocephin 1000 mg (Ceftriaxone) 17:22:33 QUALITY LIAISON CPT-20669 Postop F/U Visit 18:41:07 QUALITY LIAISON CPT-16737 Postop F/U Visit 08:19:08 QUAL[facility] LIAISON CPT-63691 Immunization Single Admin 16:41:53 CDT 2013 CPT-36107 Fluzone Quadrivalent Intramuscular Suspe nsion 0.5 ML 16:41:53 CDT CPT-OV Office Visit 16:39:18 CDT CPT-OV Office Visit 16:16:36 CDT CPT-OV Office Visit 15:34:48 CDT CPT-65594 Postop F/U Visit 14:50:12 CDT CPT-39394 Postop F/U Visit 14:41:10 CDT CPT-39919 Venipuncture Draw Fee 11:38:04 QUALITY LIAISON CPT-79011 Postop F/U Visit 19:02:59 QUALITY LIAISON CPT-72345 Postop F/U Visit 12:04:54 QUALITY LIAISON CPT-58135 Administration single or combination vac cine inc oral 15:56:43 CDT CPT-30239 Influenza split virus > age 3 15:56:43 CDT CPT-64056 Hand comp min 3V 14:25:19 CDT CPT-82176 Postop F/U Visit 21:40:51 CDT CPT-29485 Postop F/U Visit 10:58:43 CDT CPT-80096 Administration single or combination vac cine inc oral 12:33:54 QUALITY LIAISON CPT-72329 Influenza Preservative Free split virus >age 3 12:33:54 QUALITY LIAISON CPT-74461 Administration single or combination vac cine inc oral 09:30:51 CDT CPT-03921 Influenza split virus > age 3 09:30:51 CDT CPT-30758 Postop F/U Visit 15:14:53 CDT CPT-79067 Postop F/U Visit 13:50:14 CDT CPT-89647 Postop F/U Visit 13:34:52 CDT CPT-OV Office Visit 16:55:03 CDT CPT-40070 [place] of cervix w bx ECC 13:32:50 CDT 10/19 CPT-J1885 Toradol 60 mg (Ketorolac) 15:31:59 CDT 2011 CPT-J1885 Toradol 60 mg (Ketorolac) 15:23:54 CDT 2011 CPT-37048 Visit 11:34:37 QUALITY LIAISON CPT-61428 Visit 10:52:39 QUALITY LIAISON CPT-70652 Visit 10:12:02 QUALITY LIAISON CPT-62421 Visit 11:22:43 QUALITY LIAISON CPT-40638 Visit 11:24:12 QUALITY LIAISON CPT-62830 Visit 10:47:05 QUALITY LIAISON CPT-OV Office Visit 10:26:16 QUALITY LIAISON CPT-OV Office Visit 15:34:31 QUALITY LIAISON CPT-44792 Visit 10:42:08 QUALITY LIAISON CPT-13493 Visit 10:52:45 QUALITY LIAISON CPT-000 Give Appropriate Flu Vaccine 16:56:41 CDT 2 CPT-72507 Administration single or combination vac cine inc oral 10:33:21 CDT CPT-15162 Influenza split virus > age 3 10:33:21 CDT CPT-76236 Visit 13:23:09 CDT CPT-31456 Visit 18:24:52 CDT CPT-95947 Sono OB comp > 14 weeks 12:07:49 CDT 04/07
--- OUTSIDE RECORDS SUMMARY | 2020-01-18 15:59 | XMS REPORT | Clinical Summary ---
Author Author Admin, Jeri Rashid Organization [facility] Address Unknown Phone Unavailable Allergies, Adverse [...] MD Backache, unspecified , NORMAL V22.2 Resolved Adbirahman Rios MD state, incidental UNSPEC LOCAL INFECTION [...] Lumbago BACK PAIN, LUMBAR, CHRONIC 724.2 Active aSyda KLEIN Lumbago Dysmenorrhea, severe 625.3 Resolved Kalpesh [...] NEC Abscess, perirectal 566 Active Hira roman AUTOMATIC SPLICING MACHINE OPERATOR Abscess of anal and rectal regions [...] Good collier MD PHARYNGITIS ICD-462 Inactive Good melhcor MD HEALTH SCREENING ICD-V70.0 Inactive Good Julian [...] TABS 1 po q6hr PRN Pain HYDROCODONE-ACETAMINOPHEN 96341942781 Active Abdirahman Rios MD Active PERCOCET 5-325 MG ORAL TABS 1 every 6 hours as needed OXYCODONE-ACETAMINOPHEN 92527728057 No Longer Active Abdirahman Rios MD Active PERCOCET 5-325 MG TAB 1 tab po q 6 -8 hours, prn for severe pain OXYCODONE-ACETAMINOPHEN 48176476790 No Longer Active Abdirahman Rios MD Active HYDROCODONE-ACETAMINOPHEN 5-325 MG TABS 1 po q6hr PRN pain 06/30 HYDROCODONE-ACETAMINOPHEN 62345024376 No Longer Active Hira roman AUTOMATIC SPLICING MACHINE OPERATOR Active SPRINTEC 28 0.25-35 MG-MCG TABS 1 pill by mouth daily for bi rth control NORGESTIMATE-ETH ESTRADIOL 39459101884 Active Hira Moser AUTOMATIC SPLICING MACHINE OPERATOR Active GLUCOPHAGE 500 MG ORAL TABS one by mouth 3 times a day METFORMIN HCL 39373913682 No Longer Active Hira Moser APRN Ac tive PERCOCET 10-325 MG TABS 1 tab by mouth every 6 hours , use sparingly for severe pain OXYCODONE-ACETAMINOPHEN 68360338770 No Longer A ctive Abdirahman Rios MD Active IBUPROFEN 600 MG ORAL TABS 1 by mouth twice a day IBUPROFEN 12296389915 Active ERNIE Higuera Active TRAZODONE HCL 100 MG TAB 0.5 to 1 po qHS PRN Insomnia TRAZODONE HCL 08646906321 Active Abdirahman Rios MD Active CYMBALTA 30 MG CPEP 1 cap by mouth daily DULOXE CLEO HCL 39807844000 Active Abdirahman Rios MD Active EMLA 2.5-2.5 % EXT CREA apply to skin lesion q 6 hours, prn 2014 LIDOCAINE-PRILOCAINE 81179259281 No Longer Active Abdirahman Rios MD Active PERCOCET 10-325 MG ORAL TABS 1 every 4 hours as needed OXYCODONE-ACETAMINOPHEN 25408986460 No Longer Active Abdirahman Rios MD Active [id number] 50-325-40 MG ORAL CAPS 1-2 po TID VT N Headache [id number] 30114485145 Active Abdirahman Rios MD Active AUGMENTIN 875-125 MG TAB 1 tab by mouth twice daily with food 20 21/10/13 AMOXICILLIN-POT CLAVULANATE 02248222704 No Longer Active Ursula jasmina Frazell AUTOMATIC SPLICING MACHINE OPERATOR Active PROAIR HFA 108 (90 BASE) MCG/ACT AERS 2 puff q 4-6 hrs PRN 01/24 ALBUTEROL SULFATE 07889167056 No Longer Active Kalpesh Dong MD Active ALPRAZOLAM 0.5 MG TABS 1 po BID PRN Anxiety ALPRA ZOLAM 05253690225 Active Abdirahman Rios MD Active CYCLOBENZAPRINE HCL 10 MG TABS 1 tablet by mouth three times daily as needed for muscle spasm/pain CYCLOBENZAPRINE HCL 12959009982 Active Abdirahman Rios MD Active PREDNISONE 20 MG TAB 2 tabs daily for 3 days, 1 t ab daily for 3 days, 1/2 tab daily for 2 days PREDNISONE 06133377145 No Longer Active Abdirahman Rios MD Active KEFLEX 500 MG CAP 1 po qid CEPHALEXIN 756437584 20 No Longer Active Kalpesh Dong MD Active PERCOCET 5-325 MG TAB 1 every 6 hours as needed OXYCODONE-ACETAMINOPHEN 54604594905 No Longer Active Shola MCGILL Active LC-5 LIDOCAINE 5 % CREA apply 1 time daily to affected area 2013 LIDOCAINE (ANORECTAL) 69360068586 No Longer Active Jillina F razell AUTOMATIC SPLICING MACHINE OPERATOR Active HYDROCODONE-ACETAMINOPHEN 10-325 MG TABS 1 by mouth ev chaka 8 hours as needed for pain HYDROCODONE-ACETAMINOPHEN 28187151910 No Longer Active Jillina Frazell AUTOMATIC SPLICING MACHINE OPERATOR Active LORATADINE 10 MG TABS 1 tablet by mouth daily L ORATADINE 35077137580 No Longer Active Jillina Frazell AUTOMATIC SPLICING MACHINE OPERATOR Active DIFLUCAN 150 MG TAB 1 qODay x 2 doses FLUCONAZO LE 00740950553 No Longer Active Jillina Frazell AUTOMATIC SPLICING MACHINE OPERATOR Active CYCLOBENZAPRINE HCL 10 MG TABS 1/2 - 1 tab PO tid PRN back p ain, muscle spasm CYCLOBENZAPRINE HCL 41269064200 No Longer Active Karen siri Frazell AUTOMATIC SPLICING MACHINE OPERATOR Active AUGMENTIN 875-125 MG TAB 1 tab by mouth twice daily with food 20 22/05/07 AMOXICILLIN-POT CLAVULANATE 81121397209 No Longer Active Loida Rios MD Active MOBIC 15 MG TABS 1 tab daily MELOXICAM 053401502 14 No Longer Active Abdirahman Rios MD Active PERCOCET 7.5-325 MG TABS 1 PO tid PRN pain OXYCODONE-ACETAMINOPHEN 85463666278 No Longer Active Abdirahman Rios MD Active LIDODERM 5 % PTCH One patch to painful area [place] N. On for 12 hrs, off for 12 hrs. LIDOCAINE 60655267341 No Longer Active Abdirahman Rios MD Active PERCOCET 7.5-325 MG TABS 1 PO q 8 hrs PRN pain OXYCODONE-ACETAMINOPHEN 04047882434 No Longer Active Shola MCGILL Active HYDROCODONE-ACETAMINOPHEN 7.5-325 MG TABS 1 by mouth e very 6 hours as needed for pain HYDROCODONE-ACETAMINOPHEN 66857314414 No Longer Active Good Julian MD Active CLINDAMYCIN HCL 300 MG CAPS 1 po QID x 7 days CLINDAMYCIN HCL 49450686106 No Longer Active Abdirahman Rios MD Activ e BACTRIM DS 800-160 MG TABS 1 po BID x 7 days 5 SULFAMETHOXAZOLE-TRIMETHOPRIM 19967598984 No Longer Active Abdirahman Rios MD Active ENDOCET 10-325 MG TABS 1 q 6 hr prn OXYCODONE-ACETAMINOPHEN 70004397123 No Longer Active Abdirahman Rios MD Active IBUPROFEN 800 MG TABS 1 tid prn IBUPROFEN 753353 04582 No Longer Active Abdirahman Rios MD Active BACTRIM DS 800-160 MG TABS by mouth twice a day 11/05 SULFAMETHOXAZOLE-TRIMETHOPRIM 75729303696 No Longer Active Good Julian MD Active HYDROCODONE-ACETAMINOPHEN 7.5-325 MG TABS 1 four times a day as needed for pain HYDROCODONE-ACETAMINOPHEN 43130737122 No Longer Activ e Good Julian MD Active KEFLEX 500 MG CAP 1 tab po tid CEPHALEXIN 107688 10998 No Longer Active Hira Moser APRN Active IBUPROFEN 800 MG TAB 1 pill three times daily as needed for pain IBUPROFEN 80495465029 No Longer Active Kalpesh Dong MD Active PROMETHAZINE-CODEINE 6.25-10 MG/5ML SYRP 1 tsp every 6 hrs prn c ough PROMETHAZINE-CODEINE 22705043060 No Longer Active Kalpesh Carr Active HYDROCODONE-ACETAMINOPHEN 5-325 MG TABS 1 tab by mouth every 6 hours as needed HYDROCODONE-ACETAMINOPHEN 30751962179 No Longer Activ e Shola MCGILL Active CEPHALEXIN 500 MG CAPS 1 PO bid x 7 days CEPHAL EXIN 30514971192 No Longer Active Shola MCGILL Active BACTRIM DS 800-160 MG TAB 1 tab by mouth twice daily 2 TRIMETHOPRIM-SULFAMETHOXAZOLE 55633373119 No Longer Active Kalpesh Dong MD Active HYDROCODONE-ACETAMINOPHEN 5-325 MG TABS 1 PO tid PRN pain 5 HYDROCODONE-ACETAMINOPHEN 11291479838 No Longer Active Abhinav Galvan MD Active IMPLANON 68 MG IMPL IMPLANTED IN LEFT ARM ETONO GESTREL 36672992587 No Longer Active Hira Moser APRN Active AMOXICILLIN 500 MG TABS 2 tabs PO bid x 10 d AM OXICILLIN 67067450760 No Longer Active Kalpesh Dong MD Active LEVAQUIN 500 MG TABS 1 PO q day x 7 days LEVOFL OXACIN 56517142839 No Longer Active Shola MCGILL Active AMITRIPTYLINE HCL 25 MG TAB 1 tab by mouth daily 60 minutes before bedtime AMITRIPTYLINE HCL 55013179748 No Longer Active Shola MCGILL Active LORTAB 5 5-500 MG TABS 1/2 to 1 tablet by mouth go ry 6 hours as needed for pain HYDROCODONE-ACETAMINOPHEN 15543882417 No Longer Active Shola MCGILL Active CEPHALEXIN 500 MG TABS Take one by mouth four times daily, morning, noon, early evening and bedtime. CEPHALEXIN 56359363523 No Long er Active Hira Moser APRN Active TYLENOL/CODEINE #3 300-30 MG TAB 1-2 po q6hr PRN Pain ACETAMINOPHEN-CODEINE 30817475109 No Longer Active Edilberto Marino DO Active PRISTIQ 50 MG [id number] 1 po qd DESVENLAFAXI NE SUCCINATE 19268967807 No Longer Active Edilberto Marino DO Active PENICILLIN V POTASSIUM 500 MG TAB 1 four times a day 2 PENICILLIN V POTASSIUM 70831364852 No Longer Active Edilberto Marino DO Active DOXYCYCLINE HYCLATE 100 MG CAPS Take one (1) tablet by mouth twice a day DOXYCYCLINE HYCLATE 09005915045 No Longer Active Ronnie Galvan MD Active HYDROCODONE-ACETAMINOPHEN 5-325 MG TABS 1 po q 6hr PRN Pain 2011 HYDROCODONE-ACETAMINOPHEN 23485492645 No Longer Active Patri joan Perez RN Active BACTRIM DS 800-160 MG TAB 1 tab by mouth twice daily 2 TRIMETHOPRIM-SULFAMETHOXAZOLE 60164483598 No Longer Active Kalpesh Dong MD Active LORTAB 5 5-500 MG TABS 1/2 to 1 tablet by mouth go ry 4 hours as needed for pain HYDROCODONE-ACETAMINOPHEN 70609659785 No Longer Active Kalpesh Dong MD Active GENERESS FE 0.8-25 MG-MCG CHEW Take one by mouth daily NORETHIN-ETH ESTRADIOL-FE 03772792508 No Longer Active Kalpesh Dong MD Active HYDROCODONE-ACETAMINOPHEN 7.5-500 MG TABS 1-2 every 4 hours as needed HYDROCODONE-ACETAMINOPHEN 34474201392 No Longer Activ e Kalpesh Dong MD Active FERROUS SULFATE 325 (65 FE) MG TABS 1 tablet by mouth twice yung y FERROUS SULFATE 04013106612 No Longer Active Kalpesh Dong MD Active IBUPROFEN 600 MG TAB 1 po q6-8hr PRN IBUPROFEN 56208019974 No Longer Active Kalpesh Dong MD Active SPIRONOLACTONE 25 MG TAB 1 tablet by mouth daily 01/22 SPIRONOLACTONE 10252484067 No Longer Active Kalpesh Dong MD Acti ve HYDROCODONE-ACETAMINOPHEN 7.5-325 MG TABS 1 po QID PRN Pain 2011 HYDROCODONE-ACETAMINOPHEN 24362646373 No Longer Active Kalpesh Dong MD Active CLINDAMYCIN HCL 300 MG CAPS 1 po q6hr x 7 days CLINDAMYCIN HCL 39450379502 No Longer Active Edilberto Marino DO Active PREDNISONE 20 MG TAB 2 tabs daily for 4 days, 1 t ab daily for 4 days, 1/2 tab daily for 4 days PREDNISONE 14697683292 No Longer Active Edilberto Marino DO Active PERCOCET 5-325 MG TABS 1 tablet by mouth every 6 hours as ne eded for pain OXYCODONE-ACETAMINOPHEN 15468523725 No Longer Active Abdirahman iRos MD Active VITAMINS TABS Take one by mouth daily MV & MIN W/FE-FA TABS 35745965732 No Longer Active Abdirahman Rios MD Active LUIS 3-0.02 MG TABS 1 tablet by mouth daily as directed DROSPIRENONE-ETHINYL ESTRADIOL 99954833385 No Longer Active Abdirahman Rios MD Active LORATADINE 10 MG TABS 1 tablet by mouth daily L ORATADINE 05228873492 No Longer Active Kalpesh Dong MD Active HYDROCODONE-ACETAMINOPHEN 5-325 MG TABS 1 po q 6hr PRN Pain 2010 HYDROCODONE-ACETAMINOPHEN 65392222733 No Longer Active Edilberto Marino DO Active BACTRIM DS 800-160 MG TAB 1 tab by mouth twice daily 2 TRIMETHOPRIM-SULFAMETHOXAZOLE 41504843056 No Longer Active Abdirahman Rios MD Active 28-0.8 MG TABS Take one by mouth daily 09/20 VIT-FE FUMARATE-FA 24351098764 No Longer Active Abdirahman Rios MD Active CIPRO 500 MG TAB 1 tablet by mouth twice daily CIPROFLOXACIN HCL 62197840066 No Longer Active Abdirahman Rios MD Active BENADRYL 25 MG CAP 1 po q8hr PRN Congestion DIPHENHYDRAMINE HCL 72109366428 No Longer Active Abdirahman Rios MD Active ZOLOFT 50 MG TAB 1 po qd SERTRALINE HCL 972980 79734 No Longer Active Abdirahman Rios MD Active AMOXICILLIN 875 MG TABS 1 tab by mouth twice daily 201 08/09/13 AMOXICILLIN 28668182991 No Longer Active Abdirahman Rios MD Activ e AMOXICILLIN 875 MG TABS 1 tab by mouth twice daily 201 07/19/27 AMOXICILLIN 20461092815 No Longer Active Abdirahman Rios MD Activ e BACTRIM DS 800-160 MG TAB 2 tab by mouth twice daily 2 TRIMETHOPRIM-SULFAMETHOXAZOLE 86507379498 No Longer Active Abdirahman Rios MD Active KEFLEX 500 MG CAP 1 po tid x 10 days CEPHALEXIN 47850664049 No Longer Active Abdirahman Rios MD Active AMOXICILLIN 875 MG TABS 1 tab by mouth twice daily 201 07/18/07 AMOXICILLIN 15372735598 No Longer Active Abdirahman Rios MD Activ e BACTRIM DS 800-160 MG TAB 2 tab by mouth twice daily 2 BACTRIM DS 800-160 MG TAB TRIMETHOPRIM-SULFAMETHOXAZOLE Inactive ZOLOFT 50 MG TAB 1 po qd ZOLOFT 50 MG TAB 3129 41 SERTRALINE HCL Inactive BENADRYL 25 MG CAP 1 po q8hr PRN Congestion BENADRYL 25 MG CAP 3280497 DIPHENHYDRAMINE HCL Inactive 28-0.8 MG TABS Take one by mouth daily 09/20 28-0.8 MG TABS VIT-FE FUMARATE-FA Inactive HYDROCODONE-ACETAMINOPHEN 5-325 MG TABS 1 po q 6hr PRN Pain 2010 HYDROCODONE-ACETAMINOPHEN 5-325 MG TABS 233169 HYDROCODONE-ACETAMINOPHEN Inactive LORATADINE 10 MG TABS 1 tablet by mouth daily LORATADINE 10 MG TABS 083204 LORATADINE Inactive LUIS 3-0.02 MG TABS 1 tablet by mouth daily as directed LUIS 3-0.02 MG TABS DROSPIRENONE-ETHINYL ESTRADIOL Inactive VITAMINS TABS Take one by mouth daily VITAMINS TABS MV & MIN W/FE-FA TABS Inactive PERCOCET 5-325 MG TABS 1 tablet by mouth every 6 hours as ne eded for pain PERCOCET 5-325 MG TABS 7080136 OXYCODONE-ACETAMIN OPHEN Inactive PREDNISONE 20 MG TAB 2 tabs daily for 4 days, 1 t ab daily for 4 days, 1/2 tab daily for 4 days PREDNISONE 20 MG TAB 175425 PREDNISON E Inactive CLINDAMYCIN HCL 300 MG CAPS 1 po q6hr x 7 days CLINDAMYCIN HCL 300 MG CAPS 692937 CLINDAMYCIN HCL Inactive HYDROCODONE-ACETAMINOPHEN 7.5-325 MG TABS 1 po QID PRN Pain 2011 HYDROCODONE-ACETAMINOPHEN 7.5-325 MG TABS 380888 HYDROCODONE-ACETAMINOPHEN Inactive SPIRONOLACTONE 25 MG TAB 1 tablet by mouth daily 01/22 SPIRONOLACTONE 25 MG TAB 430195 SPIRONOLACTONE Inactive IBUPROFEN 600 MG TAB 1 po q6-8hr PRN IBUPROFEN 600 MG TAB 074729 IBUPROFEN Inactive FERROUS SULFATE 325 (65 FE) MG TABS 1 tablet by mouth twice yung y FERROUS SULFATE 325 (65 FE) MG TABS 511129 FERROUS SULF ATE Inactive HYDROCODONE-ACETAMINOPHEN 7.5-500 MG TABS 1-2 every 4 hours as needed HYDROCODONE-ACETAMINOPHEN 7.5-500 MG TABS HYDROCODONE-ACETAMINOPHEN Inactive GENERESS FE 0.8-25 MG-MCG CHEW Take one by mouth daily GENERESS FE 0.8-25 MG-MCG CHEW 0296064 NORETHIN-ETH ESTRADIOL-FE Inactive LORTAB 5 5-500 MG [...] PRN Pain 2011 HYDROCODONE-ACETAMINOPHEN 5-325 MG TABS 003667 HYDROCODONE-ACETAMINOPHEN Inactive DOXYCYCLINE HYCLATE 100 MG CAPS Take one (1) tablet by mouth twice a day DOXYCYCLINE HYCLATE 100 MG CAPS 1575138 DOXYCYCLINE HYCLATE Inactive PENICILLIN V POTASSIUM 500 MG TAB 1 four times a day 2 PENICILLIN V POTASSIUM 500 MG TAB 754873 PENICILLIN V POTASSIUM Siri ctive PRISTIQ 50 MG [id number] 1 po qd PRISTIQ 50 MG [id number] DESVENLAFAXINE SUCCINATE Inactive TYLENOL/CODEINE #3 300-30 MG TAB 1-2 po q6hr PRN Pain TYLENOL/CODEINE #3 300-30 MG TAB 384076 ACETAMINOPHEN-CODEINE Inact krishna CEPHALEXIN 500 MG TABS Take one by mouth four times daily, morning, noon, early evening and bedtime. CEPHALEXIN 500 MG TABS 912484 CEPHALEXIN Inactive LORTAB 5 5-500 MG TABS 1/2 to 1 tablet by mouth go ry 6 hours as needed for pain LORTAB 5 5-500 MG TABS HYDROCODONE-A CETAMINOPHEN Inactive AMITRIPTYLINE HCL 25 MG TAB 1 tab by mouth daily 60 minutes before bedtime AMITRIPTYLINE HCL 25 MG TAB 590412 AMITRIPTYLINE HCL Inactive AMOXICILLIN 500 MG TABS 2 tabs PO bid x 10 d 7 AMOXICILLIN 500 MG TABS 538524 AMOXICILLIN Inactive IMPLANON 68 MG IMPL IMPLANTED IN LEFT ARM IMPLANON 68 MG IMPL ETONOGESTREL Inactive HYDROCODONE-ACETAMINOPHEN 5-325 MG TABS 1 PO tid PRN pain 5 HYDROCODONE-ACETAMINOPHEN 5-325 MG TABS 916853 HYDROCODONE-ACETAMIN OPHEN Inactive BACTRIM DS 800-160 MG TAB 1 tab by mouth twice daily 2 BACTRIM DS 800-160 MG TAB TRIMETHOPRIM-SULFAMETHOXAZOLE Inac tive CEPHALEXIN 500 MG CAPS 1 PO bid x 7 days CEPHALEXIN 500 MG CAPS 651142 CEPHALEXIN Inactive HYDROCODONE-ACETAMINOPHEN 5-325 MG TABS 1 tab by mouth every 6 hours as needed HYDROCODONE-ACETAMINOPHEN 5-325 MG TABS 505525 HYDROCODONE-ACETAMINOPHEN Inactive PROMETHAZINE-CODEINE 6.25-10 MG/5ML SYRP 1 tsp every 6 hrs prn c ough PROMETHAZINE-CODEINE 6.25-10 MG/5ML SYRP 631503 PROMETH AZINE-CODEINE Inactive IBUPROFEN 800 MG TAB 1 pill three times daily as needed for pain IBUPROFEN 800 MG TAB 555142 IBUPROFEN Inactive KEFLEX 500 MG CAP 1 tab po tid KEFLEX 500 MG CAP 624777 CEPHALEXIN Inactive HYDROCODONE-ACETAMINOPHEN 7.5-325 MG TABS 1 four times a day as needed for pain HYDROCODONE-ACETAMINOPHEN 7.5-325 MG TABS 110937 HYDROCODONE-ACETAMINOPHEN Inactive BACTRIM DS 800-160 MG TABS by mouth twice a day 11/05 BACTRIM DS 800-160 MG TABS SULFAMETHOXAZOLE-TRIMETHOPRIM Inactive IBUPROFEN 800 MG TABS 1 tid prn IBUPROFEN 800 MG TABS 100836 IBUPROFEN Inactive ENDOCET 10-325 MG TABS 1 q 6 hr prn ENDOC ET 10-325 MG TABS 1494915 OXYCODONE-ACETAMINOPHEN Inactive HYDROCODONE-ACETAMINOPHEN 7.5-325 MG TABS 1 by mouth e very 6 hours as needed for pain HYDROCODONE-ACETAMINOPHEN 7.5-325 MG TABS 662444 HYDROCODONE-ACETAMINOPHEN Inactive PERCOCET 7.5-325 MG TABS 1 PO q 8 hrs PRN pain PERCOCET 7.5-325 MG TABS 9995520 OXYCODONE-ACETAMINOPHEN Inactive LIDODERM 5 % PTCH One patch to painful area [place] N. On for 12 hrs, off for 12 hrs. LIDODERM 5 % PTCH 1887020 LIDOCAINE Inactiv e PERCOCET 7.5-325 MG TABS 1 PO tid PRN pain PERCOCET 7.5- 325 MG TABS 3201604 OXYCODONE-ACETAMINOPHEN Inactive MOBIC 15 MG TABS 1 tab daily MOBIC 15 MG TABS 15 2695 MELOXICAM Inactive CYCLOBENZAPRINE HCL 10 MG TABS 1/2 - 1 tab PO tid PRN back p ain, muscle spasm CYCLOBENZAPRINE HCL 10 MG TABS 391418 CYCLOBENZA JOSEPH HCL Inactive LORATADINE 10 MG TABS 1 tablet by mouth daily LORATADINE 10 MG TABS 496994 LORATADINE Inactive HYDROCODONE-ACETAMINOPHEN 10-325 MG TABS 1 by mouth ev chaka 8 hours as needed for pain HYDROCODONE-ACETAMINOPHEN 10-325 MG TABS 817954 HYDROCODONE-ACETAMINOPHEN Inactive LC-5 LIDOCAINE 5 % CREA apply 1 time daily to affected area 2013 LC-5 LIDOCAINE 5 % CREA LIDOCAINE (ANORECTAL) In active PERCOCET 5-325 MG TAB 1 every 6 hours as needed PERCOCET 5-325 MG TAB 0098121 OXYCODONE-ACETAMINOPHEN Inactive KEFLEX 500 MG CAP 1 po qid KEFLEX 500 MG CAP 30 14 CEPHALEXIN Inactive PROAIR HFA 108 (90 BASE) MCG/ACT AERS 2 puff q 4-6 hrs PRN 01/24 PROAIR HFA 108 (90 BASE) MCG/ACT AERS ALBUTEROL SULFATE Inactive PERCOCET 10-325 MG ORAL TABS 1 every 4 hours as needed PERCOCET 10-325 MG ORAL TABS 5727685 OXYCODONE-ACETAMINOPHEN Inactiv e EMLA 2.5-2.5 % EXT CREA apply to skin lesion q 6 hours, prn 2014 EMLA 2.5-2.5 % EXT CREA 288472 LIDOCAINE-PRILOCAINE Max ctive PERCOCET 10-325 MG TABS 1 tab by mouth every 6 hours , use sparingly for severe pain PERCOCET 10-325 MG TABS 9220329 OXYCODONE-ACETAMINOPHEN Inactive GLUCOPHAGE 500 MG ORAL TABS one by mouth 3 times a day GLUCOPHAGE 500 MG ORAL TABS 728976 METFORMIN HCL Inactive HYDROCODONE-ACETAMINOPHEN 5-325 MG TABS 1 po q6hr PRN pain 06/30 HYDROCODONE-ACETAMINOPHEN 5-325 MG TABS 036860 HYDROCOD ONE-ACETAMINOPHEN Inactive PERCOCET 5-325 MG TAB 1 tab po q 6 -8 hours, prn for severe pain PERCOCET 5-325 MG TAB 9276030 OXYCODONE-ACETAMINOPHEN In active PERCOCET 5-325 MG ORAL TABS 1 every 6 hours as needed PERCOCET 5-325 MG ORAL TABS 9439652 OXYCODONE-ACETAMINOPHEN Inactive AMOXICILLIN 875 MG TABS 1 tab by mouth twice daily 201 07/18/07 AMOXICILLIN 875 MG TABS 100084 AMOXICILLIN Inactive KEFLEX 500 MG CAP 1 po tid x 10 days KEFLEX 500 MG CAP 178915 CEPHALEXIN Inactive AMOXICILLIN 875 MG TABS 1 tab by mouth twice daily 201 07/19/27 AMOXICILLIN 875 MG TABS 007166 AMOXICILLIN Inactive AMOXICILLIN 875 MG TABS 1 tab by mouth twice daily 201 08/09/13 AMOXICILLIN 875 MG TABS 209900 AMOXICILLIN Inactive CIPRO 500 MG TAB 1 tablet by mouth twice daily CIPRO 500 MG TAB 911746 CIPROFLOXACIN HCL Inactive BACTRIM DS 800-160 MG TAB 1 tab by mouth twice daily 2 BACTRIM DS 800-160 MG TAB TRIMETHOPRIM-SULFAMETHOXAZOLE Inac tive LEVAQUIN 500 MG TABS 1 PO q day x 7 days LEVAQUIN 500 MG TABS 535892 LEVOFLOXACIN Inactive CLINDAMYCIN HCL 300 MG CAPS 1 po QID x 7 days CLINDAMYCIN HCL 300 MG CAPS 483843 CLINDAMYCIN HCL Inactive AUGMENTIN 875-125 MG TAB 1 tab by mouth twice daily with food 22/05/07 AUGMENTIN 875-125 MG TAB 591819 AMOXICILLIN-POT CLAVULA [place] Inactive DIFLUCAN 150 MG TAB 1 qODay x 2 doses DIFLUCAN 150 MG TAB 659368 FLUCONAZOLE Inactive PREDNISONE 20 MG TAB 2 tabs daily for 3 days, 1 t ab daily for 3 days, 1/2 tab daily for 2 days PREDNISONE 20 MG TAB 577300 PREDNISON E Inactive AUGMENTIN 875-125 MG TAB 1 tab by mouth twice daily with food 21/10/13 AUGMENTIN 875-125 MG TAB 877375 AMOXICILLIN-POT CLAVULA [place] Inactive Advance Directives Directive Description Start Date PERMISSION TO SHARE Immunizations Vaccine Administration Date Value Standard Alf cription Seasonal influenza vaccine, injectable, containing preservative, for > 3 years old (Afluria, FluLaval, Fluzone, Fluvirin, Fluarix, Agriflu(>= 18 yo)) Fluzone (>3 yrs.) [[id number]] Influenza, seasonal, inject able Seasonal influenza vaccine, injectable, preservative free, for > 3 years old (Afluria, FluLaval, Fluzone, Fluvirin, Fluarix, Agriflu(>= 18 yo)) Fluzone preservative free (>3 yrs.) [[id number]] Influenza, seasonal, injectable, preservative free Seasonal influenza vaccine, injectable, containing preservative, for > 3 years old (Afluria, FluLaval, Fluzone, Fluvirin, Fluarix, Agriflu(>= 18 yo)) Fluzone (>3 yrs.) [[id number]] Influenza, seasonal, inject able Seasonal influenza vaccine, injectable, containing preservative, for > 3 years old (Afluria, FluLaval, Fluzone, Fluvirin, Fluarix, Agriflu(>= 18 yo)) Fluzone (>3 yrs.) [[id number]] Influenza, seasonal, inject able dT (Diphtheria and [...] pressure, diastolic - 8462-4 88 mm[Hg] BP rbieiro blood pressure, systolic - 8480-6 137 mm[Hg] [...] Panel - Chemistry sodium, serum 142 mmol/L 281-466 4155/05/12 potassium, serum 4.8 mmol/L 3.5-5.2 chloride, serum [...] Panel - Chemistry cholesterol, serum 181 mg/dL 143-977 6092/09/01 triglyceride, serum, fasting 341 mg/dL 30-200 HDL cholesterol, serum 22 mg/dL 32-96 LDL cholesterol, serum 91 mg/dL 0-130 cholesterol, serum 165 mg/dL 314-690 8198/05/12 triglyceride, serum, fasting 524 mg/dL 30-200 HDL [...] negative Encounters Code Encounter Date Provider Facility [facility]-[id number] Level 3 Est. Patient 14:29:53 CDT Abhinav Galvan MD [facility] CPT-77257 Level 2 Est. Patient 16:33:01 CDT Kalpesh goins MD [facility]-27561 Level 4 Est. Patient 16:44:56 CDT Abdirahman Rios MD [facility]-64579 Level 2 Est. Patient 07:49:32 CDT Kalpesh goins MD [facility] CPT-81630 Level 3 New Patient 15:47:11 MEDICAL TECHNICIAN Bj huber MD [facility]-98011 Level 4 Est. Patient 14:37:38 MEDICAL TECHNICIAN Abdirahman Rios MD [facility] CPT-52876 Level 2 Est. Patient 13:32:17 MEDICAL TECHNICIAN Kalpesh goins MD [facility]-61653 Level 3 Est. Patient 17:32:57 MEDICAL TECHNICIAN Edilberto tiwari DO [facility] CPT-43203 Level 3 Est. Patient 17:22:33 MEDICAL TECHNICIAN Edilberto tiwari [facility] CPT-10199 Level 2 Est. Patient 16:57:09 MEDICAL TECHNICIAN Kalpesh goins MD [facility]-02933 Level 3 Est. Patient 14:03:08 MEDICAL TECHNICIAN Abdirahman Rios MD [facility]-24827 Level 3 Est. Patient 18:12:34 CDT Shola MCGILL [facility]-70432 Level 3 Est. Patient 19:34:46 CDT Shola Wright [facility] CPT-04605 Level 3 Est. Patient 14:19:37 CDT Abdirahman Rios MD [facility] CPT-07812 Level 3 Est. Patient 14:11:58 CDT Kalpesh goins MD [facility] CPT-85194 Level 3 Est. Patient 16:50:00 CDT Michelle trimble [employer] [facility] CPT-76702 Level 3 Est. Patient 17:11:32 MEDICAL TECHNICIAN Brandie bates MD PhD [facility]-09144 Level 3 Est. Patient 16:31:47 MEDICAL TECHNICIAN Shola Wright [facility] CPT-01475 Level 3 Est. Patient 17:51:10 MEDICAL TECHNICIAN Abhinav Galvan MD [facility] CPT-21177 Level 4 Est. Patient 12:54:56 MEDICAL TECHNICIAN Kalpesh goins MD [facility] CPT-20389 Level 4 Est. Patient 12:53:56 MEDICAL TECHNICIAN Kalpesh goins MD [facility]-95905 Level 3 Est. Patient 17:56:58 CDT Shola Wright [facility] CPT-36835 Level 3 Est. Patient 14:26:20 CDT Janak butcher [facility] CPT-90714 Level 3 Est. Patient 09:38:41 CDT Shola Wright [facility] CPT-62434 Level 3 Est. Patient 14:45:26 CDT Edilberto tiwari DO [facility] CPT-67651 Level 3 Est. Patient 10:51:33 CD[facility] Level 3 Est. Patient 11:57:55 MEDICAL TECHNICIAN Shola Wright [facility] CPT-26695 Level 3 Est. Patient 09:53:33 MEDICAL TECHNICIAN Edilberto tiwari [facility] CPT-90521 Level 3 Est. Patient 14:42:54 MEDICAL TECHNICIAN Abhinav Galvan MD [facility] CPT-76835 Level 3 Est. Patient 15:10:02 CDT Janak Stevenamira [facility] CPT-92661 Level 3 Est. Patient 15:20:20 CDT Theo dennis MD [facility] CPT-96435 Level 2 Est. Patient 14:08:57 CDT Kalpesh goins MD [facility]-07651 Level 3 Est. Patient 13:56:19 CDT Abdirahman Rios MD [facility] CPT-70616 Level 3 Est. Patient 13:59:37 CDT Abdirahman Rios MD [facility] CPT-16553 Level 2 Est. Patient 14:44:59 CDT Kalpesh goins MD [facility] CPT-54476 Level 3 Est. Patient 06:06:23 CDT Edilberto tiwari [facility] CPT-66355 Level 3 Est. Patient 15:23:54 CDT Abdirahman Rios MD [facility] CPT-66184 Level 3 Est. Patient 15:43:49 CDT Abdirahman Rios MD [facility] CPT-18742 Level 3 Est. Patient 12:46:47 MEDICAL TECHNICIAN Abdirahman Rios MD [facility] CPT-91707 Level 3 Est. Patient 08:13:35 MEDICAL TECHNICIAN Abdirahman Rios MD [facility] CPT-34094 Level 2 Est. Patient 09:36:42 MEDICAL TECHNICIAN Abdirahman Rios MD [facility] CPT-05273 Level 3 Est. Patient 10:56:43 CDT Abdirahman Rios MD [facility] CPT-98786 Level 3 Est. Patient 18:24:52 CDT Abdirahman Rios MD [facility] CPT-93554 Level 3 Est. Patient 13:27:22 CDT Abdirahman Rios MD [facility] Procedures Code Procedure Name Date Entry Date Standard Desc ription CPT-22563 Venipuncture Draw Fee 14:27:29 CDT CPT-79078 Postop F/U Visit 15:27:43 CDT CPT-84752 Postop F/U Visit 14:40:59 CDT CPT-77435 Postop F/U Visit 15:02:46 CDT CPT-16261 Postop F/U Visit 11:29:00 MEDICAL TECHNICIAN CPT-J0696 Rocephin 1000 mg (Ceftriaxone) 17:22:33 MEDICAL TECHNICIAN CPT-12052 Postop F/U Visit 18:41:07 MEDICAL TECHNICIAN CPT-68368 Postop F/U Visit 08:19:08 MEDICAL TECHNICIAN CPT-85064 Immunization Single Admin 16:41:53 CDT 2013 CPT-90854 Fluzone Quadrivalent Intramuscular Suspe nsion 0.5 ML 16:41:53 CDT CPT-OV Office Visit 16:39:18 CDT CPT-OV Office Visit 16:16:36 CDT CPT-OV Office Visit 15:34:48 CDT CPT-47468 Postop F/U Visit 14:50:12 CDT CPT-68910 Postop F/U Visit 14:41:10 CDT CPT-14080 Venipuncture Draw Fee 11:38:04 MEDICAL TECHNICIAN CPT-57631 Postop F/U Visit 19:02:59 MEDICAL TECHNICIAN CPT-71244 Postop F/U Visit 12:04:54 MEDICAL TECHNICIAN CPT-84320 Administration single or combination vac cine inc oral 15:56:43 CDT CPT-65208 Influenza split virus > age 3 15:56:43 CDT CPT-78704 Hand comp min 3V 14:25:19 CDT CPT-61251 Postop F/U Visit 21:40:51 CDT CPT-91545 Postop F/U Visit 10:58:43 CDT CPT-70901 Administration single or combination vac cine inc oral 12:33:54 MEDICAL TECHNICIAN CPT-34358 Influenza Preservative Free split virus >age 3 12:33:54 MEDICAL TECHNICIAN CPT-86735 Administration single or combination vac cine inc oral 09:30:51 CDT CPT-48329 Influenza split virus > age 3 09:30:51 CDT CPT-26887 Postop F/U Visit 15:14:53 CDT CPT-39248 Postop F/U Visit 13:50:14 CDT CPT-05617 Postop F/U Visit 13:34:52 CDT CPT-OV Office Visit 16:55:03 CDT CPT-62518 [place] of cervix w bx ECC 13:32:50 CDT 10/19 CPT-J1885 Toradol 60 mg (Ketorolac) 15:31:59 CDT 2011 CPT-J1885 Toradol 60 mg (Ketorolac) 15:23:54 CDT 2011 CPT-54709 Visit 11:34:37 MEDICAL TECHNICIAN CPT-06005 Visit 10:52:39 MEDICAL TECHNICIAN CPT-49198 Visit 10:12:02 MEDICAL TECHNICIAN CPT-71104 Visit 11:22:43 MEDICAL TECHNICIAN CPT-71526 Visit 11:24:12 MEDICAL TECHNICIAN CPT-81000 Visit 10:47:05 MEDICAL TECHNICIAN CPT-OV Office Visit 10:26:16 MEDICAL TECHNICIAN CPT-OV Office Visit 15:34:31 MEDICAL TECHNICIAN CPT-93598 Visit 10:42:08 MEDICAL TECHNICIAN CPT-64539 Visit 10:52:45 MEDICAL TECHNICIAN CPT-000 Give Appropriate Flu Vaccine 16:56:41 CDT 2 CPT-59625 Administration single or combination vac cine inc oral 10:33:21 CDT CPT-69443 Influenza split virus > age 3 10:33:21 CDT CPT-01613 Visit 13:23:09 CDT CPT-46915 Visit 18:24:52 CDT CPT-27874 Sono OB comp > 14 weeks 12:07:49 CDT 04/07
--- OUTSIDE RECORDS SUMMARY | 2020-01-18 16:00 | XMS REPORT | Clinical Summary ---
Author Author Admin, Jeri Rashid Organization [facility] Address Unknown Phone Unavailable Allergies, Adverse [...] Acute sinusitis, unspecified SINUSITIS, ACUTE 461.9 Resolved bAdirahman Rios MD Acute sinusitis, unspecified BACK PAIN [...] MD Swelling of limb ICD-729.81 Inactive Good Julain MD Hand pain, right ICD-729.5 Inactive Good [...] Generic Name NDC Status Provider Patient Instruction [id number] 50-325-40 MG ORAL TABS 1 po TID PRN Headaches [id number] Active Abdirahman owen MD Active CHANTIX STARTING MONTH MARGARITA 0.5 MG X 11 & 1 MG X 42 TAB S 0.5mg daily for 3 days, then 0.5mg BID for 4 days, then 1mg BID VARENICL INE TARTRATE 86889200501 Active Abdirahman Rios MD Active AMOXICILLIN 500 MG CAPS 2 po BID x 10 days AMOX ICILLIN 90491984482 Active Abdirahman Rios MD Active PROMETHAZINE HCL 25 MG TABS 1 four times a day as needed for nausea/vomiting PROMETHAZINE HCL 53521476166 No Longer Active Abdirahman Rios MD Active LC-4 LIDOCAINE 4 % EXT CREA apply q 6 hours, prn 08/03 LIDOCAINE 21189288302 No Longer Active Kalpesh Dong MD Active PERCOCET 10-325 MG TABS 1 tablet every 8 hours as needed for antonia n OXYCODONE-ACETAMINOPHEN 35775738881 No Longer Active Kalpesh Dong MD Active HYDROCODONE-ACETAMINOPHEN 5-325 MG TABS 1 tab by mouth every 6 hours as needed for pain HYDROCODONE-ACETAMINOPHEN 40353069270 No Longer Active Kalpesh Dong MD Active PERCOCET 10-325 MG ORAL TABS 1 every 4 hous as needed OXYCODONE-ACETAMINOPHEN 03825641044 Active Hira Moser APRN Active GLYDO 2 % EXT GEL apply to painful areas as needed LIDOCAINE HCL 82415567715 Active Kalpesh Dong MD Active LC-4 LIDOCAINE 4 % EXT CREA apply to painful area every 12 h ours or as needed LIDOCAINE 78052197352 Active Kalpesh Dong MD Active AUGMENTIN 875-125 MG TAB 1 tab by mouth twice daily with food 20 23/05/16 AMOXICILLIN-POT CLAVULANATE 96615806452 No Longer Active Lizeth hi [employer] 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 FLUTICASONE PROPIONATE 92924169396 No Longer Ac tive Rajni [employer] Active PERCOCET 10-325 MG ORAL TABS take 1 tab by mouth q 4hours as needed for pain OXYCODONE-ACETAMINOPHEN 35411257212 No Longer Active Rajni [employer] Active PERCOCET 10-325 MG ORAL TABS one every 6 hours prn pain OXYCODONE-ACETAMINOPHEN 54666449779 No Longer Active Rajni [employer] Active IBUPROFEN 800 MG TABS 1 tab po tid, with food I BUPROFEN 47056446208 Active Hira Moser [employer] Active DICLOFENAC SODIUM 50 MG TBEC 1 tablet by mouth four times da tom PRN Pain DICLOFENAC SODIUM 21471853003 No Longer Active Rajni [employer] Active VIIBRYD 10 & 20 & 40 MG KIT 1 po qd as directed 07/24 VILAZODONE HCL 52337497074 No Longer Active Rajni [employer] Active ONDANSETRON 4 MG TBDP 1 q4h PRN nausea ONDANSET KELBY 93662084891 No Longer Active Rajni [employer]ERK Active PERCOCET 10-325 MG TABS 1 tablet every 8 hours as needed for antonia n OXYCODONE-ACETAMINOPHEN 72644669358 No Longer Active Rajni [employer]ERK Active HYDROCODONE-ACETAMINOPHEN 5-325 MG TABS 1 po TID PRN Pain 9 HYDROCODONE-ACETAMINOPHEN 40837559999 No Longer Active Abdirahman Rios MD Active [id number] 50-325-40 MG ORAL CAPS 1-2 po TID OK N Headache [id number] 83037088177 No Longer Act krishna Kalpesh Dong MD Active ALPRAZOLAM 0.5 MG TABS 1 po BID PRN Anxiety ALP RAZOLAM 20093650566 No Longer Active Kalpesh Dong MD Active TRAZODONE HCL 100 MG TAB 0.5 to 1 po qHS PRN Insomnia TRAZODONE HCL 14004140681 No Longer Active Kalpesh Dong MD Activ e HYDROCODONE-ACETAMINOPHEN 5-325 MG TABS 1 po q6hr PRN Pain 04/09 HYDROCODONE-ACETAMINOPHEN 62744354397 No Longer Active Kalpesh Dong MD Active CYMBALTA 30 MG CPEP 1 cap by mouth daily DULOXE CLEO HCL 47728932251 No Longer Active Abdirahman Rios MD Active IBUPROFEN 600 MG ORAL TABS 1 by mouth twice a day 2014 IBUPROFEN 96327167757 No Longer Active Abdirahman Rios MD Activ e PERCOCET 5-325 MG TAB 1 tab po q 6 hours, prn severe pain 1 OXYCODONE-ACETAMINOPHEN 25268821404 No Longer Active Abdirahman Rios MD Active SPRINTEC 28 0.25-35 MG-MCG TABS 1 pill by mouth daily for bi rth control NORGESTIMATE-ETH ESTRADIOL 03176480105 No Longer Acti ve Hira Moser [employer] Active CYCLOBENZAPRINE HCL 10 MG TABS 1 tablet by mouth three times daily as needed for muscle spasm/pain CYCLOBENZAPRINE HCL 18831613761 No Longer Active Matthewllina Shanti [employer]ERK Active HYDROCODONE-ACETAMINOPHEN 5-325 MG TABS 1 po q6hr PRN Pain 03/09 HYDROCODONE-ACETAMINOPHEN 85675523426 No Longer Active Hira Peraza l [employer]ERK Active AUGMENTIN 500-125 MG ORAL TABS 1 by mouth twice a day AMOXICILLIN-POT CLAVULANATE 31741193482 No Longer Active Hira Perazal [employer]ERK Active DICLOFENAC SODIUM 50 MG TBEC 1 tablet by mouth four times da tom PRN Pain DICLOFENAC SODIUM 73724474620 No Longer Active Karenin a [employer] Active PROMETHAZINE HCL 25 MG TABS 1 four times a day as needed for nausea/vomiting PROMETHAZINE HCL 05921970346 No Longer Active Abdirahman Rios MD Active HYDROCODONE-ACETAMINOPHEN 5-325 MG TABS 1 tab by mouth every 6 hours as needed PRN Pain HYDROCODONE-ACETAMINOPHEN 21101088792 No Longer Active Abdirahman Rios MD Active GEMFIBROZIL 600 MG TABS 1 po BID GEMFIBROZIL 35581120 005 Active Abdirahman Rios MD Active PERCOCET 5-325 MG ORAL TABS 1 every 6 hours as needed OXYCODONE-ACETAMINOPHEN 72398987038 No Longer Active Abdirahman Rios MD Active PERCOCET 5-325 MG TAB 1 tab po q 6 -8 hours, prn for severe pain OXYCODONE-ACETAMINOPHEN 34152646722 No Longer Active Abdirahman Rios MD Active HYDROCODONE-ACETAMINOPHEN 5-325 MG TABS 1 po q6hr PRN pain 06/30 HYDROCODONE-ACETAMINOPHEN 05805097919 No Longer Active Hira Peraza l [employer]ERK Active GLUCOPHAGE 500 MG ORAL TABS one by mouth 3 times a day METFORMIN HCL 96876478580 No Longer Active Hira Perazal [employer]ERK Ac tive PERCOCET 10-325 MG TABS 1 tab by mouth every 6 hours , use sparingly for severe pain OXYCODONE-ACETAMINOPHEN 00949589003 No Longer A ctive Abdirahman Rios MD Active EMLA 2.5-2.5 % EXT CREA apply to skin lesion q 6 hours, prn 2014 LIDOCAINE-PRILOCAINE 04454883186 No Longer Active Abdirahman Rios MD Active PERCOCET 10-325 MG ORAL TABS 1 every 4 hours as needed OXYCODONE-ACETAMINOPHEN 85977087301 No Longer Active Abdirahman Rios MD Active AUGMENTIN 875-125 MG TAB 1 tab by mouth twice daily with food 20 21/10/13 AMOXICILLIN-POT CLAVULANATE 18584957002 No Longer Active Ursula jasmina Frazell [employer] Active PROAIR HFA 108 (90 BASE) MCG/ACT AERS 2 puff q 4-6 hrs PRN 01/24 ALBUTEROL SULFATE 50107475369 No Longer Active Kalpesh Dong MD Active PREDNISONE 20 MG TAB 2 tabs daily for 3 days, 1 t ab daily for 3 days, 1/2 tab daily for 2 days PREDNISONE 13302160662 No Longer Active Abdirahman Rios MD Active KEFLEX 500 MG CAP 1 po qid CEPHALEXIN 611759074 20 No Longer Active Kalpesh Dong MD Active PERCOCET 5-325 MG TAB 1 every 6 hours as needed OXYCODONE-ACETAMINOPHEN 07261522657 No Longer Active Shola MCGILL Active LC-5 LIDOCAINE 5 % CREA apply 1 time daily to affected area 2013 LIDOCAINE (ANORECTAL) 15663719498 No Longer Active Hira muniz [employer]ERK Active HYDROCODONE-ACETAMINOPHEN 10-325 MG TABS 1 by mouth ev chaka 8 hours as needed for pain HYDROCODONE-ACETAMINOPHEN 95629787000 No Longer Active Jillina Frazell [employer]ERK Active LORATADINE 10 MG TABS 1 tablet by mouth daily L ORATADINE 35657837645 No Longer Active Jillina Frazell [employer]ERK Active DIFLUCAN 150 MG TAB 1 qODay x 2 doses FLUCONAZO LE 05132716945 No Longer Active Jillina Frazell [employer]ERK Active CYCLOBENZAPRINE HCL 10 MG TABS 1/2 - 1 tab PO tid PRN back p ain, muscle spasm CYCLOBENZAPRINE HCL 42538795981 No Longer Active Karen Moser APRN Active AUGMENTIN 875-125 MG TAB 1 tab by mouth twice daily with food 20 22/05/07 AMOXICILLIN-POT CLAVULANATE 29968688449 No Longer Active Loida Rios MD Active MOBIC 15 MG TABS 1 tab daily MELOXICAM 490737548 14 No Longer Active Abdirahman Rios MD Active PERCOCET 7.5-325 MG TABS 1 PO tid PRN pain OXYCODONE-ACETAMINOPHEN 54735805190 No Longer Active Abdirahman Rios MD Active LIDODERM 5 % PTCH One patch to painful area OK N. On for 12 hrs, off for 12 hrs. LIDOCAINE 62698893759 No Longer Active Abdirahman Rios MD Active PERCOCET 7.5-325 MG TABS 1 PO q 8 hrs PRN pain OXYCODONE-ACETAMINOPHEN 72616373116 No Longer Active Shola MCGILL Active HYDROCODONE-ACETAMINOPHEN 7.5-325 MG TABS 1 by mouth e very 6 hours as needed for pain HYDROCODONE-ACETAMINOPHEN 06565734409 No Longer Active Good Julian MD Active CLINDAMYCIN HCL 300 MG CAPS 1 po QID x 7 days CLINDAMYCIN HCL 97001386168 No Longer Active Abdirahman Rios MD Activ e BACTRIM DS 800-160 MG TABS 1 po BID x 7 days 5 SULFAMETHOXAZOLE-TRIMETHOPRIM 09909744329 No Longer Active Abdirahman Rios MD Active ENDOCET 10-325 MG TABS 1 q 6 hr prn OXYCODONE-ACETAMINOPHEN 91605059006 No Longer Active Abdirahman Rios MD Active IBUPROFEN 800 MG TABS 1 tid prn IBUPROFEN 220193 38407 No Longer Active Abdirahman Rios MD Active BACTRIM DS 800-160 MG TABS by mouth twice a day 11/05 SULFAMETHOXAZOLE-TRIMETHOPRIM 30634772304 No Longer Active Good Julian MD Active HYDROCODONE-ACETAMINOPHEN 7.5-325 MG TABS 1 four times a day as needed for pain HYDROCODONE-ACETAMINOPHEN 83622819093 No Longer Activ e Good Julian MD Active KEFLEX 500 MG CAP 1 tab po tid CEPHALEXIN 502894 12364 No Longer Active Hira Moser APRN Active IBUPROFEN 800 MG TAB 1 pill three times daily as needed for pain IBUPROFEN 76142279563 No Longer Active Kalpesh Dong MD Active PROMETHAZINE-CODEINE 6.25-10 MG/5ML SYRP 1 tsp every 6 hrs prn c ough PROMETHAZINE-CODEINE 99924199164 No Longer Active Kalpesh Carr Active HYDROCODONE-ACETAMINOPHEN 5-325 MG TABS 1 tab by mouth every 6 hours as needed HYDROCODONE-ACETAMINOPHEN 83926254158 No Longer Activ e Shola MCGILL Active CEPHALEXIN 500 MG CAPS 1 PO bid x 7 days CEPHAL EXIN 05223334330 No Longer Active Shola MCGILL Active BACTRIM DS 800-160 MG TAB 1 tab by mouth twice daily 2 TRIMETHOPRIM-SULFAMETHOXAZOLE 43096274507 No Longer Active Kalpesh Dong MD Active HYDROCODONE-ACETAMINOPHEN 5-325 MG TABS 1 PO tid PRN pain 5 HYDROCODONE-ACETAMINOPHEN 92956953424 No Longer Active Abhinav Galvan MD Active IMPLANON 68 MG IMPL IMPLANTED IN LEFT ARM ETONO GESTREL 66989859294 No Longer Active Hira Moser APRN Active AMOXICILLIN 500 MG TABS 2 tabs PO bid x 10 d AM OXICILLIN 49594519455 No Longer Active Kalpesh Dong MD Active LEVAQUIN 500 MG TABS 1 PO q day x 7 days LEVOFL OXACIN 55522584400 No Longer Active Shola MCGILL Active AMITRIPTYLINE HCL 25 MG TAB 1 tab by mouth daily 60 minutes before bedtime AMITRIPTYLINE HCL 65961918356 No Longer Active Shola MCGILL Active LORTAB 5 5-500 MG TABS 1/2 to 1 tablet by mouth go ry 6 hours as needed for pain HYDROCODONE-ACETAMINOPHEN 24798762576 No Longer Active Shola MCGILL Active CEPHALEXIN 500 MG TABS Take one by mouth four times daily, morning, noon, early evening and bedtime. CEPHALEXIN 33596081146 No Long er Active Hira Moser APRN Active TYLENOL/CODEINE #3 300-30 MG TAB 1-2 po q6hr PRN Pain ACETAMINOPHEN-CODEINE 65138970836 No Longer Active Edilberto Marino DO Active PRISTIQ 50 MG [id number] 1 po qd DESVENLAFAXI NE SUCCINATE 43565929942 No Longer Active Edilberto Marino DO Active PENICILLIN V POTASSIUM 500 MG TAB 1 four times a day 2 PENICILLIN V POTASSIUM 46886943962 No Longer Active Edilberto Marino DO Active DOXYCYCLINE HYCLATE 100 MG CAPS Take one (1) tablet by mouth twice a day DOXYCYCLINE HYCLATE 56316289427 No Longer Active Ronnie Galvan MD Active HYDROCODONE-ACETAMINOPHEN 5-325 MG TABS 1 po q 6hr PRN Pain 2011 HYDROCODONE-ACETAMINOPHEN 32080281613 No Longer Active Patri joan Perez RN Active BACTRIM DS 800-160 MG TAB 1 tab by mouth twice daily 2 TRIMETHOPRIM-SULFAMETHOXAZOLE 52037702458 No Longer Active Kalpesh Dong MD Active LORTAB 5 5-500 MG TABS 1/2 to 1 tablet by mouth go ry 4 hours as needed for pain HYDROCODONE-ACETAMINOPHEN 62709451751 No Longer Active Kalpesh Dong MD Active GENERESS FE 0.8-25 MG-MCG CHEW Take one by mouth daily NORETHIN-ETH ESTRADIOL-FE 49674225947 No Longer Active Kalpesh Dong MD Active HYDROCODONE-ACETAMINOPHEN 7.5-500 MG TABS 1-2 every 4 hours as needed HYDROCODONE-ACETAMINOPHEN 95678392421 No Longer Activ e Kalpesh Dong MD Active FERROUS SULFATE 325 (65 FE) MG TABS 1 tablet by mouth twice yung y FERROUS SULFATE 63682892975 No Longer Active Kalpesh Dong MD Active IBUPROFEN 600 MG TAB 1 po q6-8hr PRN IBUPROFEN 49822851780 No Longer Active Kalpesh Dong MD Active SPIRONOLACTONE 25 MG TAB 1 tablet by mouth daily 01/22 SPIRONOLACTONE 91912647316 No Longer Active Kalpesh Dong MD Acti ve HYDROCODONE-ACETAMINOPHEN 7.5-325 MG TABS 1 po QID PRN Pain 2011 HYDROCODONE-ACETAMINOPHEN 83778180792 No Longer Active Kalpesh Dong MD Active CLINDAMYCIN HCL 300 MG CAPS 1 po q6hr x 7 days CLINDAMYCIN HCL 42700260193 No Longer Active Edilberto Marino DO Active PREDNISONE 20 MG TAB 2 tabs daily for 4 days, 1 t ab daily for 4 days, 1/2 tab daily for 4 days PREDNISONE 65830805687 No Longer Active Edilberto Marino DO Active PERCOCET 5-325 MG TABS 1 tablet by mouth every 6 hours as ne eded for pain OXYCODONE-ACETAMINOPHEN 11285585720 No Longer Active Abdirahman Rios MD Active VITAMINS TABS Take one by mouth daily MV & MIN W/FE-FA TABS 67064858232 No Longer Active Abdirahman Rios MD Active LUIS 3-0.02 MG TABS 1 tablet by mouth daily as directed DROSPIRENONE-ETHINYL ESTRADIOL 18920119133 No Longer Active Abdirahman Rios MD Active LORATADINE 10 MG TABS 1 tablet by mouth daily L ORATADINE 86906807466 No Longer Active Kalpesh Dong MD Active HYDROCODONE-ACETAMINOPHEN 5-325 MG TABS 1 po q 6hr PRN Pain 2010 HYDROCODONE-ACETAMINOPHEN 18593192443 No Longer Active Edilberto Marino DO Active BACTRIM DS 800-160 MG TAB 1 tab by mouth twice daily 2 TRIMETHOPRIM-SULFAMETHOXAZOLE 64937562155 No Longer Active Abdirahman Rios MD Active 28-0.8 MG TABS Take one by mouth daily 09/20 VIT-FE FUMARATE-FA 68183490591 No Longer Active Abdirahman Rios MD Active CIPRO 500 MG TAB 1 tablet by mouth twice daily CIPROFLOXACIN HCL 10892827666 No Longer Active Abdirahman Rios MD Active BENADRYL 25 MG CAP 1 po q8hr PRN Congestion DIPHENHYDRAMINE HCL 51932779561 No Longer Active Abdirahman Rios MD Active ZOLOFT 50 MG TAB 1 po qd SERTRALINE HCL 201653 02255 No Longer Active Abdirahman Rios MD Active AMOXICILLIN 875 MG TABS 1 tab by mouth twice daily 201 08/09/13 AMOXICILLIN 63070674249 No Longer Active Abdirahman Rios MD Activ e AMOXICILLIN 875 MG TABS 1 tab by mouth twice daily 201 07/19/27 AMOXICILLIN 30658479244 No Longer Active Abdirahman Rios MD Activ e BACTRIM DS 800-160 MG TAB 2 tab by mouth twice daily 2 TRIMETHOPRIM-SULFAMETHOXAZOLE 42657902373 No Longer Active Abdirahman Rios MD Active KEFLEX 500 MG CAP 1 po tid x 10 days CEPHALEXIN 21567842783 No Longer Active Abdirahman Rios MD Active AMOXICILLIN 875 MG TABS 1 tab by mouth twice daily 201 07/18/07 AMOXICILLIN 22092901218 No Longer Active Abdirahman Rios MD Activ e BACTRIM DS 800-160 MG TAB 2 tab by mouth twice daily 2 BACTRIM DS 800-160 MG TAB 513412 TRIMETHOPRIM-SULFAMETHOXAZOLE Inactive ZOLOFT 50 MG TAB 1 po qd ZOLOFT 50 MG TAB 3129 41 SERTRALINE HCL Inactive BENADRYL 25 MG CAP 1 po q8hr PRN Congestion BENADRYL 25 MG CAP 7085718 DIPHENHYDRAMINE HCL Inactive 28-0.8 MG TABS Take one by mouth daily 09/20 28-0.8 MG TABS VIT-FE FUMARATE-FA Inactive HYDROCODONE-ACETAMINOPHEN 5-325 MG TABS 1 po q 6hr PRN Pain 2010 HYDROCODONE-ACETAMINOPHEN 5-325 MG TABS 251674 HYDROCODONE-ACETAMINOPHEN Inactive LORATADINE 10 MG TABS 1 tablet by mouth daily LORATADINE 10 MG TABS 000119 LORATADINE Inactive LUIS 3-0.02 MG TABS 1 tablet by mouth daily as directed LUIS 3-0.02 MG TABS 256984 DROSPIRENONE-ETHINYL ESTRADIOL Inactive VITAMINS TABS Take one by mouth daily VITAMINS TABS MV & MIN W/FE-FA TABS Inactive PERCOCET 5-325 MG TABS 1 tablet by mouth every 6 hours as ne eded for pain PERCOCET 5-325 MG TABS 6276602 OXYCODONE-ACETAMIN OPHEN Inactive PREDNISONE 20 MG TAB 2 tabs daily for 4 days, 1 t ab daily for 4 days, 1/2 tab daily for 4 days PREDNISONE 20 MG TAB 857241 PREDNISON E Inactive CLINDAMYCIN HCL 300 MG CAPS 1 po q6hr x 7 days CLINDAMYCIN HCL 300 MG CAPS 632931 CLINDAMYCIN HCL Inactive HYDROCODONE-ACETAMINOPHEN 7.5-325 MG TABS 1 po QID PRN Pain 2011 HYDROCODONE-ACETAMINOPHEN 7.5-325 MG TABS 451113 HYDROCODONE-ACETAMINOPHEN Inactive SPIRONOLACTONE 25 MG TAB 1 tablet by mouth daily 01/22 SPIRONOLACTONE 25 MG TAB 080147 SPIRONOLACTONE Inactive IBUPROFEN 600 MG TAB 1 po q6-8hr PRN IBUPROFEN 600 MG TAB 065823 IBUPROFEN Inactive FERROUS SULFATE 325 (65 FE) MG TABS 1 tablet by mouth twice yung y FERROUS SULFATE 325 (65 FE) MG TABS 622845 FERROUS SULF ATE Inactive HYDROCODONE-ACETAMINOPHEN 7.5-500 MG TABS 1-2 every 4 hours as needed HYDROCODONE-ACETAMINOPHEN 7.5-500 MG TABS HYDROCODONE-ACETAMINOPHEN Inactive GENERESS FE 0.8-25 MG-MCG CHEW Take one by mouth daily GENERESS FE 0.8-25 MG-MCG CHEW [id number] NORETHIN-ETH ESTRADIOL-FE Inactive LORTAB 5 5-500 MG TABS 1/2 to 1 tablet by mouth go ry 4 hours as needed for pain LORTAB 5 5-500 MG TABS HYDROCODONE-A CETAMINOPHEN Inactive BACTRIM DS 800-160 MG TAB 1 tab by mouth twice daily 2 BACTRIM DS 800-160 MG TAB 311646 TRIMETHOPRIM-SULFAMETHOXAZOLE Inac tive HYDROCODONE-ACETAMINOPHEN 5-325 MG TABS 1 po q 6hr PRN Pain 2011 HYDROCODONE-ACETAMINOPHEN 5-325 MG TABS 234442 HYDROCODONE-ACETAMINOPHEN Inactive DOXYCYCLINE HYCLATE 100 MG CAPS Take one (1) tablet by mouth twice a day DOXYCYCLINE HYCLATE 100 MG CAPS 8426934 DOXYCYCLINE HYCLATE Inactive PENICILLIN V POTASSIUM 500 MG TAB 1 four times a day 2 PENICILLIN V POTASSIUM 500 MG TAB 006099 PENICILLIN V POTASSIUM Siri ctive PRISTIQ 50 MG [id number] 1 po qd PRISTIQ 50 MG [id number] DESVENLAFAXINE SUCCINATE Inactive TYLENOL/CODEINE #3 300-30 MG TAB 1-2 po q6hr PRN Pain TYLENOL/CODEINE #3 300-30 MG TAB 531397 ACETAMINOPHEN-CODEINE Inact krishna CEPHALEXIN 500 MG TABS Take one by mouth four times daily, morning, noon, early evening and bedtime. CEPHALEXIN 500 MG TABS 644195 CEPHALEXIN Inactive LORTAB 5 5-500 MG TABS 1/2 to 1 tablet by mouth go ry 6 hours as needed for pain LORTAB 5 5-500 MG TABS HYDROCODONE-A CETAMINOPHEN Inactive AMITRIPTYLINE HCL 25 MG TAB 1 tab by mouth daily 60 minutes before bedtime AMITRIPTYLINE HCL 25 MG TAB 213207 AMITRIPTYLINE HCL Inactive AMOXICILLIN 500 MG TABS 2 tabs PO bid x 10 d 7 AMOXICILLIN 500 MG TABS 502037 AMOXICILLIN Inactive IMPLANON 68 MG IMPL IMPLANTED IN LEFT ARM IMPLANON 68 MG IMPL ETONOGESTREL Inactive HYDROCODONE-ACETAMINOPHEN 5-325 MG TABS 1 PO tid PRN pain 5 HYDROCODONE-ACETAMINOPHEN 5-325 MG TABS 960210 HYDROCODONE-ACETAMIN OPHEN Inactive BACTRIM DS 800-160 MG TAB 1 tab by mouth twice daily 2 BACTRIM DS 800-160 MG TAB 588199 TRIMETHOPRIM-SULFAMETHOXAZOLE Inac tive CEPHALEXIN 500 MG CAPS 1 PO bid x 7 days CEPHALEXIN 500 MG CAPS 644361 CEPHALEXIN Inactive HYDROCODONE-ACETAMINOPHEN 5-325 MG TABS 1 tab by mouth every 6 hours as needed HYDROCODONE-ACETAMINOPHEN 5-325 MG TABS 977415 HYDROCODONE-ACETAMINOPHEN Inactive PROMETHAZINE-CODEINE 6.25-10 MG/5ML SYRP 1 tsp every 6 hrs prn c ough PROMETHAZINE-CODEINE 6.25-10 MG/5ML SYRP 502426 PROMETH AZINE-CODEINE Inactive IBUPROFEN 800 MG TAB 1 pill three times daily as needed for pain IBUPROFEN 800 MG TAB IBUPROFEN Inactive KEFLEX 500 MG CAP 1 tab po tid KEFLEX 500 MG CAP 578207 CEPHALEXIN Inactive HYDROCODONE-ACETAMINOPHEN 7.5-325 MG TABS 1 four times a day as needed for pain HYDROCODONE-ACETAMINOPHEN 7.5-325 MG TABS 132798 HYDROCODONE-ACETAMINOPHEN Inactive BACTRIM DS 800-160 MG TABS by mouth twice a day 11/05 BACTRIM DS 800-160 MG TABS 058960 SULFAMETHOXAZOLE-TRIMETHOPRIM Inactive IBUPROFEN 800 MG TABS 1 tid prn IBUPROFEN 800 MG TABS 925626 IBUPROFEN Inactive ENDOCET 10-325 MG TABS 1 q 6 hr prn ENDOC ET 10-325 MG TABS 5814770 OXYCODONE-ACETAMINOPHEN Inactive HYDROCODONE-ACETAMINOPHEN 7.5-325 MG TABS 1 by mouth e very 6 hours as needed for pain HYDROCODONE-ACETAMINOPHEN 7.5-325 MG TABS 303839 HYDROCODONE-ACETAMINOPHEN Inactive PERCOCET 7.5-325 MG TABS 1 PO q 8 hrs PRN pain PERCOCET 7.5-325 MG TABS 8729036 OXYCODONE-ACETAMINOPHEN Inactive LIDODERM 5 % PTCH One patch to painful area OK N. On for 12 hrs, off for 12 hrs. LIDODERM 5 % PTCH 6106109 LIDOCAINE Inactiv e PERCOCET 7.5-325 MG TABS 1 PO tid PRN pain PERCOCET 7.5- 325 MG TABS 1219059 OXYCODONE-ACETAMINOPHEN Inactive MOBIC 15 MG TABS 1 tab daily MOBIC 15 MG TABS 15 2695 MELOXICAM Inactive CYCLOBENZAPRINE HCL 10 MG TABS 1/2 - 1 tab PO tid PRN back p ain, muscle spasm CYCLOBENZAPRINE HCL 10 MG TABS 449471 CYCLOBENZA JOSEPH HCL Inactive LORATADINE 10 MG TABS 1 tablet by mouth daily LORATADINE 10 MG TABS 826432 LORATADINE Inactive HYDROCODONE-ACETAMINOPHEN 10-325 MG TABS 1 by mouth ev chaka 8 hours as needed for pain HYDROCODONE-ACETAMINOPHEN 10-325 MG TABS 861211 HYDROCODONE-ACETAMINOPHEN Inactive LC-5 LIDOCAINE 5 % CREA apply 1 time daily to affected area 2013 LC-5 LIDOCAINE 5 % CREA 8680492 LIDOCAINE (ANORECTAL) In active PERCOCET 5-325 MG TAB 1 every 6 hours as needed PERCOCET 5-325 MG TAB 9678320 OXYCODONE-ACETAMINOPHEN Inactive KEFLEX 500 MG CAP 1 po qid KEFLEX 500 MG CAP 30 9114 CEPHALEXIN Inactive PROAIR HFA 108 (90 BASE) MCG/ACT AERS 2 puff q 4-6 hrs PRN 01/24 PROAIR HFA 108 (90 BASE) MCG/ACT AERS ALBUTEROL SULFATE Inactive PERCOCET 10-325 MG ORAL TABS 1 every 4 hours as needed PERCOCET 10-325 MG ORAL TABS 7566793 OXYCODONE-ACETAMINOPHEN Inactiv e EMLA 2.5-2.5 % EXT CREA apply to skin lesion q 6 hours, prn 2014 EMLA 2.5-2.5 % EXT CREA 482676 LIDOCAINE-PRILOCAINE Siri ctive PERCOCET 10-325 MG TABS 1 tab by mouth every 6 hours , use sparingly for severe pain PERCOCET 10-325 MG TABS 8380550 OXYCODONE-ACETAMINOPHEN Inactive GLUCOPHAGE 500 MG ORAL TABS one by mouth 3 times a day GLUCOPHAGE 500 MG ORAL TABS 271125 METFORMIN HCL Inactive HYDROCODONE-ACETAMINOPHEN 5-325 MG TABS 1 po q6hr PRN pain 06/30 HYDROCODONE-ACETAMINOPHEN 5-325 MG TABS 738007 HYDROCOD ONE-ACETAMINOPHEN Inactive PERCOCET 5-325 MG TAB 1 tab po q 6 -8 hours, prn for severe pain PERCOCET 5-325 MG TAB [id number] OXYCODONE-ACETAMINOPHEN In active PERCOCET 5-325 MG ORAL TABS 1 every 6 hours as needed PERCOCET 5-325 MG ORAL TABS [id number] OXYCODONE-ACETAMINOPHEN Inactive DICLOFENAC SODIUM 50 MG TBEC 1 tablet by mouth four times da tom PRN Pain DICLOFENAC SODIUM 50 MG TBEC [id number] DICLOFENAC S ODIUM Inactive AUGMENTIN 500-125 MG ORAL TABS 1 by mouth twice a day AUGMENTIN 500-125 MG ORAL TABS [id number] AMOXICILLIN-POT CLAVULANATE I nactive HYDROCODONE-ACETAMINOPHEN 5-325 MG TABS 1 po q6hr PRN Pain 03/09 HYDROCODONE-ACETAMINOPHEN 5-325 MG TABS [id number] HYDROCOD ONE-ACETAMINOPHEN Inactive CYCLOBENZAPRINE HCL 10 MG TABS 1 tablet by mouth three times daily as needed for muscle spasm/pain CYCLOBENZAPRINE HCL 10 MG TABS [id number] CYCLOBENZAPRINE HCL Inactive SPRINTEC 28 0.25-35 MG-MCG TABS 1 pill by mouth daily for bi rth control SPRINTEC 28 0.25-35 MG-MCG TABS [id number] NORGESTIMATE-ETH ESTRADIOL Inactive PERCOCET 5-325 MG TAB 1 tab po q 6 hours, prn severe pain PERCOCET 5-325 MG TAB [id number] OXYCODONE-ACETAMINOPHEN Inactive IBUPROFEN 600 MG ORAL TABS 1 by mouth twice a day 2014 IBUPROFEN 600 MG ORAL TABS [id number] IBUPROFEN Inactive CYMBALTA 30 MG CPEP 1 cap by mouth daily CYMBALTA 30 MG CPEP [id number] DULOXETINE HCL Inactive HYDROCODONE-ACETAMINOPHEN 5-325 MG TABS 1 po q6hr PRN Pain 04/09 HYDROCODONE-ACETAMINOPHEN 5-325 MG TABS [id number] HYDROCOD ONE-ACETAMINOPHEN Inactive TRAZODONE HCL 100 MG TAB 0.5 to 1 po qHS PRN Insomnia TRAZODONE HCL 100 MG TAB [id number] TRAZODONE HCL Inactive ALPRAZOLAM 0.5 MG TABS 1 po BID PRN Anxiety ALPRAZOLAM 0.5 MG TABS [id number] ALPRAZOLAM Inactive [id number] 50-325-40 MG ORAL CAPS 1-2 po TID OK N Headache JOJJKYNGES-LPM-BZRNAWED 50-325-40 MG ORAL CAPS 2 11245 AXJLWQEETR-EWUUNMO-WMYIHONT Inactive HYDROCODONE-ACETAMINOPHEN 5-325 MG TABS 1 po TID PRN Pain 9 HYDROCODONE-ACETAMINOPHEN 5-325 MG TABS 297263 HYDROCODONE-ACETAMIN OPHEN Inactive PERCOCET 10-325 MG TABS 1 tablet every 8 hours as needed for antonia n PERCOCET 10-325 MG TABS [id number] OXYCODONE-ACETAMINOPHEN Inactive ONDANSETRON 4 MG TBDP 1 q4h PRN nausea ON DANSETRON 4 MG TBDP 816158 ONDANSETRON Inactive VIIBRYD 10 & 20 & 40 MG KIT 1 po qd as directed 07/24 VIIBRYD 10 & 20 & 40 MG KIT VILAZODONE HCL Inactive DICLOFENAC SODIUM 50 MG TBEC 1 tablet by mouth four times da tom PRN Pain DICLOFENAC SODIUM 50 MG TBEC 063254 DICLOFENAC S ODIUM Inactive PERCOCET 10-325 MG ORAL TABS one every 6 hours prn pain PERCOCET 10-325 MG ORAL TABS [id number] OXYCODONE-ACETAMINOPHEN Inactiv e PERCOCET 10-325 MG ORAL TABS take 1 tab by mouth q 4hours as needed for pain PERCOCET 10-325 MG ORAL TABS [id number] OXYCODONE-ACETAMINOPHEN Inactive FLONASE ALLERGY RELIEF 50 MCG/ACT NASAL SUSP One spray in each nostril twice a day. FLONASE ALLERGY RELIEF 50 MCG/ACT NASAL S RETIREMENT 523799 FLUTICASONE PROPIONATE Inactive AUGMENTIN 875-125 MG TAB 1 tab by mouth twice daily with food 20 23/05/16 AUGMENTIN 875-125 MG TAB 485679 AMOXICILLIN-POT [place] Inactive HYDROCODONE-ACETAMINOPHEN 5-325 MG TABS 1 tab by mouth every 6 hours as needed for pain HYDROCODONE-ACETAMINOPHEN 5-325 MG TABS 8 23957 HYDROCODONE-ACETAMINOPHEN Inactive PERCOCET 10-325 MG TABS 1 tablet every 8 hours as needed for antonia n PERCOCET 10-325 MG TABS [id number] OXYCODONE-ACETAMINOPHEN Inactive LC-4 LIDOCAINE 4 % EXT CREA apply q 6 hours, prn 08/03 LC-4 LIDOCAINE 4 % EXT CREA [id number] LIDOCAINE Inactive PROMETHAZINE HCL 25 MG TABS 1 four times a day as needed for nausea/vomiting PROMETHAZINE HCL 25 MG TABS 189485 PROMETHAZINE HCL Inactive AMOXICILLIN 875 MG TABS 1 tab by mouth twice daily 201 07/18/07 AMOXICILLIN 875 MG TABS 534407 AMOXICILLIN Inactive KEFLEX 500 MG CAP 1 po tid x 10 days KEFLEX 500 MG CAP 162039 CEPHALEXIN Inactive AMOXICILLIN 875 MG TABS 1 tab by mouth twice daily 201 07/19/27 AMOXICILLIN 875 MG TABS 895363 AMOXICILLIN Inactive AMOXICILLIN 875 MG TABS 1 tab by mouth twice daily 201 08/09/13 AMOXICILLIN 875 MG TABS 813012 AMOXICILLIN Inactive CIPRO 500 MG TAB 1 tablet by mouth twice daily CIPRO 500 MG TAB 370825 CIPROFLOXACIN HCL Inactive BACTRIM DS 800-160 MG TAB 1 tab by mouth twice daily 2 BACTRIM DS 800-160 MG TAB 029267 TRIMETHOPRIM-SULFAMETHOXAZOLE Inac tive LEVAQUIN 500 MG TABS 1 PO q day x 7 days LEVAQUIN 500 MG TABS 342011 LEVOFLOXACIN Inactive CLINDAMYCIN HCL 300 MG CAPS 1 po QID x 7 days CLINDAMYCIN HCL 300 MG CAPS 107767 CLINDAMYCIN HCL Inactive AUGMENTIN 875-125 MG TAB 1 tab by mouth twice daily with food 20 22/05/07 AUGMENTIN 875-125 MG TAB 344816 AMOXICILLIN-POT [place] Inactive DIFLUCAN 150 MG TAB 1 qODay x 2 doses DIFLUCAN 150 MG TAB 787901 FLUCONAZOLE Inactive PREDNISONE 20 MG TAB 2 tabs daily for 3 days, 1 t ab daily for 3 days, 1/2 tab daily for 2 days PREDNISONE 20 MG TAB 020382 PREDNISON E Inactive AUGMENTIN 875-125 MG TAB 1 tab by mouth twice daily with food 20 21/10/13 AUGMENTIN 875-125 MG TAB 466972 AMOXICILLIN-POT [place] Inactive HYDROCODONE-ACETAMINOPHEN 5-325 MG TABS 1 tab by mouth every 6 hours as needed PRN Pain HYDROCODONE-ACETAMINOPHEN 5-325 MG TABS 8 33299 HYDROCODONE-ACETAMINOPHEN Inactive PROMETHAZINE HCL 25 MG TABS 1 four times a day as needed for nausea/vomiting PROMETHAZINE HCL 25 MG TABS 717027 PROMETHAZINE HCL Inactive Advance Directives Directive Description Start Date PERMISSION TO SHARE Immunizations Vaccine Administration Date Value Standard Alf cription Seasonal influenza vaccine, injectable, containing preservative, for > 3 years old (Afluria, FluLaval, Fluzone, Fluvirin, Fluarix, Agriflu(>= 18 yo)) Fluzone (>3 yrs.) [[id number]] Influenza, seasonal, inject able Seasonal influenza vaccine, injectable, preservative free, for > 3 years old (Afluria, FluLaval, Fluzone, Fluvirin, Fluarix, Agriflu(>= 18 yo)) Fluzone preservative free (>3 yrs.) [[id number]] Influenza, seasonal, injectable, preservative free Seasonal influenza vaccine, injectable, containing preservative, for > 3 years old (Afluria, FluLaval, Fluzone, Fluvirin, Fluarix, Agriflu(>= 18 yo)) Fluzone (>3 yrs.) [[id number]] Influenza, seasonal, inject able Seasonal influenza vaccine, injectable, containing preservative, for > 3 years old (Afluria, FluLaval, Fluzone, Fluvirin, Fluarix, Agriflu(>= 18 yo)) Fluzone (>3 yrs.) [[id number]] Influenza, seasonal, inject able dT (Diphtheria and [...] Panel - Chemistry sodium, serum 142 mmol/L 177-103 2633/05/12 potassium, serum 4.8 mmol/L 3.5-5.2 chloride, serum [...] Panel - Chemistry cholesterol, serum 181 mg/dL 553-128 5794/09/01 triglyceride, serum, fasting 341 mg/dL 30-200 HDL cholesterol, serum 22 mg/dL 32-96 LDL cholesterol, serum 91 mg/dL 0-130 cholesterol, serum 165 mg/dL 307-584 4379/05/12 triglyceride, serum, fasting 524 mg/dL 30-200 HDL [...] negative Encounters Code Encounter Date Provider Facility CPT-09301 Level 4 Est. Patient 16:38:26 DIRECTOR OF DATABASE MARKETING Abdirahman Rios MD [facility] CPT-16801 Level 3 Est. Patient 05:31:41 DIRECTOR OF DATABASE MARKETING Kalpesh goins MD [facility] CPT-04609 Level 3 Est. Patient 11:22:02 DIRECTOR OF DATABASE MARKETING Hira muniz [facility] CPT-11535 Level 3 Est. Patient 21:00:18 DIRECTOR OF DATABASE MARKETING Rajni danielson [facility] CPT-06551 Level 3 Est. Patient 14:15:00 DIRECTOR OF DATABASE MARKETING Kalpesh goins MD [facility] CPT-08471 Level 2 Est. Patient 19:57:52 DIRECTOR OF DATABASE MARKETING Rajni Oconnor jagjit RIVAS [facility] CPT-75246 Level 3 Est. Patient 16:58:40 DIRECTOR OF DATABASE MARKETING Bj funes MD [facility] CPT-51660 Level 3 Est. Patient 08:51:33 CDT Kalpesh goins MD [facility] CPT-37990 Level 4 Est. Patient 14:14:53 CDT Abdirahman Rios MD [facility] CPT-02736 Level 3 Est. Patient 15:47:40 CDT Kalpesh goins MD [facility] CPT-95314 Level 3 Est. Patient 10:57:26 CDT Abdirahman Rios MD [facility] CPT-47041 Level 3 Est. Patient 14:29:53 CDT Abhinav Galvan MD [facility] CPT-07377 Level 2 Est. Patient 16:33:01 CDT Kalpesh goins MD [facility] CPT-50647 Level 4 Est. Patient 16:44:56 CDT Abdirahman Rios MD [facility] CPT-26190 Level 2 Est. Patient 07:49:32 CDT Kalpesh goins MD [facility] CPT-44824 Level 3 New Patient 15:47:11 DIRECTOR OF DATABASE MARKETING Bj huber MD [facility] CPT-42286 Level 4 Est. Patient 14:37:38 DIRECTOR OF DATABASE MARKETING Abdirahman Rios MD [facility] CPT-53614 Level 2 Est. Patient 13:32:17 DIRECTOR OF DATABASE MARKETING Kalpesh goins MD [facility] CPT-72024 Level 3 Est. Patient 17:32:57 DIRECTOR OF DATABASE MARKETING Edilberto tiwari DO [facility] CPT-34418 Level 3 Est. Patient 17:22:33 DIRECTOR OF DATABASE MARKETING Edilberto tiwari DO [facility] CPT-18207 Level 2 Est. Patient 16:57:09 DIRECTOR OF DATABASE MARKETING Kalpesh goins MD [facility]-44196 Level 3 Est. Patient 14:03:08 DIRECTOR OF DATABASE MARKETING Abdirahman Rios MD [facility] CPT-04438 Level 3 Est. Patient 18:12:34 CDT Shola Wright [facility] CPT-76535 Level 3 Est. Patient 19:34:46 CDT Shola Wright [facility] CPT-20290 Level 3 Est. Patient 14:19:37 CDT Abdirahman Rios MD [facility] CPT-33712 Level 3 Est. Patient 14:11:58 CDT Kalpesh goins MD [facility] CPT-45554 Level 3 Est. Patient 16:50:00 CDT [facility] Level 3 Est. Patient 17:11:32 DIRECTOR OF DATABASE MARKETING Brandie bates MD PhD [facility]-26206 Level 3 Est. Patient 16:31:47 DIRECTOR OF DATABASE MARKETING Shola Wright [facility] CPT-00489 Level 3 Est. Patient 17:51:10 DIRECTOR OF DATABASE MARKETING Abhinav Galvan MD [facility] CPT-55050 Level 4 Est. Patient 12:54:56 DIRECTOR OF DATABASE MARKETING Kalpesh goins MD [facility] CPT-14148 Level 4 Est. Patient 12:53:56 DIRECTOR OF DATABASE MARKETING Kalpesh goins MD [facility]-94931 Level 3 Est. Patient 17:56:58 CDT Shola Wright [facility] CPT-59366 Level 3 Est. Patient 14:26:20 CDT Janak butcher [facility] CPT-63479 Level 3 Est. Patient 09:38:41 CDT Shola Wright PA [facility] CPT-44054 Level 3 Est. Patient 14:45:26 CDT Edilberto tiwari [facility] CPT-18256 Level 3 Est. Patient 10:51:33 CDT [facility] Level 3 Est. Patient 11:57:55 DIRECTOR OF DATABASE MARKETING Shola Wright [facility] CPT-20874 Level 3 Est. Patient 09:53:33 DIRECTOR OF DATABASE MARKETING Edilberto tiwari [facility] CPT-30273 Level 3 Est. Patient 14:42:54 DIRECTOR OF DATABASE MARKETING Abhinav Galvan MD [facility]-98096 Level 3 Est. Patient 15:10:02 CDT Janak Stevenamira guadalupe [facility] CPT-12390 Level 3 Est. Patient 15:20:20 CDT Theo dennis MD [facility] CPT-89945 Level 2 Est. Patient 14:08:57 CDT Kalpesh goins MD [facility] CPT-66099 Level 3 Est. Patient 13:56:19 CDT Abdirahman Rios MD [facility] CPT-09517 Level 3 Est. Patient 13:59:37 CDT Abdirahman Rios MD [facility] CPT-10164 Level 2 Est. Patient 14:44:59 CDT Kalpesh goins MD [facility] CPT-41629 Level 3 Est. Patient 06:06:23 CDT Edilberto tiwari [facility] CPT-23191 Level 3 Est. Patient 15:23:54 CDT Abdirahman Rios MD [facility] CPT-34128 Level 3 Est. Patient 15:43:49 CDT Abdirahman Rios MD [facility] CPT-53760 Level 3 Est. Patient 12:46:47 DIRECTOR OF DATABASE MARKETING Abdirahman Rios MD [facility] CPT-88095 Level 3 Est. Patient 08:13:35 DIRECTOR OF DATABASE MARKETING Abdirahman Rios MD [facility] CPT-70456 Level 2 Est. Patient 09:36:42 DIRECTOR OF DATABASE MARKETING Abdirahman Rios MD [facility] CPT-27248 Level 3 Est. Patient 10:56:43 CDT Abdirahman Rios MD [facility] CPT-86260 Level 3 Est. Patient 18:24:52 CDT Abdirahman Rios MD [facility] CPT-52048 Level 3 Est. Patient 13:27:22 CDT Abdirahman Rios MD [facility] Procedures Code Procedure Name Date Entry Date Standard Desc ription CPT-18441 Postop F/U Visit 17:09:41 DIRECTOR OF DATABASE MARKETING CPT-12466 Postop F/U Visit 14:08:43 DIRECTOR OF DATABASE MARKETING CPT-61352 Postop F/U Visit 15:18:16 DIRECTOR OF DATABASE MARKETING CPT-35904 Postop F/U Visit 15:03:49 DIRECTOR OF DATABASE MARKETING CPT-69765 Postop F/U Visit 14:45:23 DIRECTOR OF DATABASE MARKETING CPT-69152 Postop F/U Visit 14:11:03 DIRECTOR OF DATABASE MARKETING CPT-09459 Postop F/U Visit 18:21:21 DIRECTOR OF DATABASE MARKETING CPT-46327 Postop F/U Visit 15:57:12 DIRECTOR OF DATABASE MARKETING CPT-28017 Bladder Instillation 16:58:41 DIRECTOR OF DATABASE MARKETING 6 CPT-65205 Fluzone Quadrivalent Intramuscular Suspe nsion 0.5 ML 15:20:56 DIRECTOR OF DATABASE MARKETING CPT-70042 Immunization Single Admin 15:20:56 DIRECTOR OF DATABASE MARKETING 2014 CPT-94442 Excis pilonidal cyst simple 08:51:34 CDT 20 22/04/20 CPT-16367 Venipuncture Draw Fee 14:27:29 CDT CPT-15412 Postop F/U Visit 15:27:43 CDT CPT-03178 Postop F/U Visit 14:40:59 CDT CPT-87854 Postop F/U Visit 15:02:46 CDT CPT-65679 Postop F/U Visit 11:29:00 DIRECTOR OF DATABASE MARKETING CPT-J0696 Rocephin 1000 mg (Ceftriaxone) 17:22:33 DIRECTOR OF DATABASE MARKETING CPT-49677 Postop F/U Visit 18:41:07 DIRECTOR OF DATABASE MARKETING CPT-70642 Postop F/U Visit 08:19:08 DIRECTOR OF DATABASE MARKETING CPT-45199 Immunization Single Admin 16:41:53 CDT 2013 CPT-78976 Fluzone Quadrivalent Intramuscular Suspe nsion 0.5 ML 16:41:53 CDT CPT-OV Office Visit 16:39:18 CDT CPT-OV Office Visit 16:16:36 CDT CPT-OV Office Visit 15:34:48 CDT CPT-71006 Postop F/U Visit 14:50:12 CDT CPT-74200 Postop F/U Visit 14:41:10 CDT CPT-27752 Venipuncture Draw Fee 11:38:04 DIRECTOR OF DATABASE MARKETING CPT-41249 Postop F/U Visit 19:02:59 DIRECTOR OF DATABASE MARKETING CPT-41117 Postop F/U Visit 12:04:54 DIRECTOR OF DATABASE MARKETING CPT-68295 Administration single or combination vac cine inc oral 15:56:43 CDT CPT-83959 Influenza split virus > age 3 15:56:43 CDT CPT-12855 Hand comp min 3V 14:25:19 CDT CPT-20718 Postop F/U Visit 21:40:51 CDT CPT-35986 Postop F/U Visit 10:58:43 CDT CPT-39875 Administration single or combination vac cine inc oral 12:33:54 DIRECTOR OF DATABASE MARKETING CPT-90858 Influenza Preservative Free split virus >age 3 12:33:54 DIRECTOR OF DATABASE MARKETING CPT-53992 Administration single or combination vac cine inc oral 09:30:51 CDT CPT-13076 Influenza split virus > age 3 09:30:51 CDT CPT-28353 Postop F/U Visit 15:14:53 CDT CPT-28647 Postop F/U Visit 13:50:14 CDT CPT-71011 Postop F/U Visit 13:34:52 CDT CPT-OV Office Visit 16:55:03 CDT CPT-19122 [place] of cervix w bx ECC 13:32:50 CDT 10/19 CPT-J1885 Toradol 60 mg (Ketorolac) 15:31:59 CDT 2011 CPT-J1885 Toradol 60 mg (Ketorolac) 15:23:54 CDT 2011 CPT-09277 Visit 11:34:37 DIRECTOR OF DATABASE MARKETING CPT-19988 Visit 10:52:39 DIRECTOR OF DATABASE MARKETING CPT-85895 Visit 10:12:02 DIRECTOR OF DATABASE MARKETING CPT-39703 Visit 11:22:43 DIRECTOR OF DATABASE MARKETING CPT-66250 Visit 11:24:12 DIRECTOR OF DATABASE MARKETING CPT-95728 Visit 10:47:05 DIRECTOR OF DATABASE MARKETING CPT-OV Office Visit 10:26:16 DIRECTOR OF DATABASE MARKETING CPT-OV Office Visit 15:34:31 DIRECTOR OF DATABASE MARKETING CPT-81594 Visit 10:42:08 DIRECTOR OF DATABASE MARKETING CPT-65788 Visit 10:52:45 DIRECTOR OF DATABASE MARKETING CPT-000 Give Appropriate Flu Vaccine 16:56:41 CDT 2 CPT-01072 Administration single or combination vac cine inc oral 10:33:21 CDT CPT-89501 Influenza split virus > age 3 10:33:21 CDT CPT-10508 Visit 13:23:09 CDT CPT-42385 Visit 18:24:52 CDT CPT-17580 Sono OB comp > 14 weeks 12:07:49 CDT 04/07
--- OUTSIDE RECORDS SUMMARY | 2020-01-18 16:01 | XMS REPORT | Clinical Summary ---
Author Author Admin, Jeri Rashid Organization [facility] Address Unknown Phone Unavailable Allergies, Adverse [...] SURGERY SKIN&SUBCUT TISSUE NEC V58.77 08/27 Resolved Abdiramhan Rios MD Aftercare following surgery of the skin and subcutaneous tissue, NEC Abscess, perirectal 566 Active Hira roman [employer] Abscess of anal and rectal regions Hypertriglyceridemia [...] , use sparingly for severe pain OXYCODONE-ACETAMINOPHEN 73936707132 No Longer A ctive Abdirahman Rios MD Active GLUCOPHAGE 500 MG ORAL TABS one by mouth 3 times a day METFORMIN HCL 31413177785 Active Kalpesh Dong MD Active IBUPROFEN 600 MG ORAL TABS 1 by mouth twice a day IBUPROFEN 55987384862 Active ERNIE Higuera Active TRAZODONE HCL 100 MG TAB 0.5 to 1 po qHS PRN Insomnia TRAZODONE HCL 34658237085 Active Abdirahman Rios MD Active CYMBALTA 30 MG CPEP 1 cap by mouth daily DULOXE CLEO HCL 20245089345 Active Abdirahman Rios MD Active EMLA 2.5-2.5 % EXT CREA apply to skin lesion q 6 hours, prn 2014 LIDOCAINE-PRILOCAINE 88209154848 No Longer Active Abdirahman Rios MD Active HYDROCODONE-ACETAMINOPHEN 5-325 MG TABS 1 po q6hr PRN pain HYDROCODONE-ACETAMINOPHEN 97017419786 Active Abdirahman Rios MD Active PERCOCET 10-325 MG ORAL TABS 1 every 4 hours as needed OXYCODONE-ACETAMINOPHEN 31513650736 No Longer Active Abdirahman Rios MD Active [id number]-XTRNVAEO 50-325-40 MG ORAL CAPS 1-2 po TID [place] N Headache [id number] 32222293477 Active Abdirahman Rios MD Active AUGMENTIN 875-125 MG TAB 1 tab by mouth twice daily with food 20 21/10/13 AMOXICILLIN-POT CLAVULANATE 73195893694 No Longer Active Ursula jasmina Frajalenl [employer] Active PROAIR HFA 108 (90 BASE) MCG/ACT AERS 2 puff q 4-6 hrs PRN 01/24 ALBUTEROL SULFATE 00966338600 No Longer Active Kalpesh Dong MD Active ALPRAZOLAM 0.5 MG TABS 1 po BID PRN Anxiety ALPRA ZOLAM 50387757639 Active Abdirahman Rios MD Active CYCLOBENZAPRINE HCL 10 MG TABS 1 tablet by mouth three times daily as needed for muscle spasm/pain CYCLOBENZAPRINE HCL 18783241245 Active Abdirahman Rios MD Active PREDNISONE 20 MG TAB 2 tabs daily for 3 days, 1 t ab daily for 3 days, 1/2 tab daily for 2 days PREDNISONE 10973931347 No Longer Active Abdirahman Rios MD Active KEFLEX 500 MG CAP 1 po qid CEPHALEXIN 766279848 20 No Longer Active Kalpesh Dong MD Active PERCOCET 5-325 MG TAB 1 every 6 hours as needed OXYCODONE-ACETAMINOPHEN 62806559433 No Longer Active Shola MCGILL Active LC-5 LIDOCAINE 5 % CREA apply 1 time daily to affected area 2013 LIDOCAINE (ANORECTAL) 59306889549 No Longer Active Hira garciaell [employer] Active HYDROCODONE-ACETAMINOPHEN 10-325 MG TABS 1 by mouth ev chaka 8 hours as needed for pain HYDROCODONE-ACETAMINOPHEN 93766415999 No Longer Active Jillina Frazell [employer] Active LORATADINE 10 MG TABS 1 tablet by mouth daily L ORATADINE 76540191133 No Longer Active Jillina Frazell [employer] Active DIFLUCAN 150 MG TAB 1 qODay x 2 doses FLUCONAZO LE 04466160771 No Longer Active Jillina Joyzell [employer] Active CYCLOBENZAPRINE HCL 10 MG TABS 1/2 - 1 tab PO tid PRN back p ain, muscle spasm CYCLOBENZAPRINE HCL 35485253991 No Longer Active Karen hreson Frazell [employer] Active AUGMENTIN 875-125 MG TAB 1 tab by mouth twice daily with food 20 22/05/07 AMOXICILLIN-POT CLAVULANATE 33562892722 No Longer Active Loida Rios MD Active MOBIC 15 MG TABS 1 tab daily MELOXICAM 491508214 14 No Longer Active Abdirahman Rios MD Active PERCOCET 7.5-325 MG TABS 1 PO tid PRN pain OXYCODONE-ACETAMINOPHEN 69285976068 No Longer Active Abdirahman Rios MD Active LIDODERM 5 % PTCH One patch to painful area [place] On for 12 hrs, off for 12 hrs. LIDOCAINE 41822165935 No Longer Active Abdirahman Rios MD Active PERCOCET 7.5-325 MG TABS 1 PO q 8 hrs PRN pain OXYCODONE-ACETAMINOPHEN 58759987044 No Longer Active Shola MCGILL Active HYDROCODONE-ACETAMINOPHEN 7.5-325 MG TABS 1 by mouth e very 6 hours as needed for pain HYDROCODONE-ACETAMINOPHEN 53456316645 No Longer Active Good Julian MD Active CLINDAMYCIN HCL 300 MG CAPS 1 po QID x 7 days CLINDAMYCIN HCL 27503239835 No Longer Active Abdirahman Rios MD Activ e BACTRIM DS 800-160 MG TABS 1 po BID x 7 days 5 SULFAMETHOXAZOLE-TRIMETHOPRIM 28269602499 No Longer Active Abdirahman Rios MD Active ENDOCET 10-325 MG TABS 1 q 6 hr prn OXYCODONE-ACETAMINOPHEN 66768853945 No Longer Active Abdirahman Rios MD Active IBUPROFEN 800 MG TABS 1 tid prn IBUPROFEN 696247 40789 No Longer Active Abdirahman Rios MD Active BACTRIM DS 800-160 MG TABS by mouth twice a day 11/05 SULFAMETHOXAZOLE-TRIMETHOPRIM 56395163633 No Longer Active Good Julian MD Active HYDROCODONE-ACETAMINOPHEN 7.5-325 MG TABS 1 four times a day as needed for pain HYDROCODONE-ACETAMINOPHEN 51225839321 No Longer Activ e Good Julian MD Active KEFLEX 500 MG CAP 1 tab po tid CEPHALEXIN 328175 06368 No Longer Active Matthewllherson Moser APRN Active IBUPROFEN 800 MG TAB 1 pill three times daily as needed for pain IBUPROFEN 20831760710 No Longer Active Kalpesh Dong MD Active PROMETHAZINE-CODEINE 6.25-10 MG/5ML SYRP 1 tsp every 6 hrs prn c ough PROMETHAZINE-CODEINE 91380833965 No Longer Active Kalpesh Carr Active HYDROCODONE-ACETAMINOPHEN 5-325 MG TABS 1 tab by mouth every 6 hours as needed HYDROCODONE-ACETAMINOPHEN 66605789121 No Longer Activ e Shola MCGILL Active CEPHALEXIN 500 MG CAPS 1 PO bid x 7 days CEPHAL EXIN 64454912108 No Longer Active Shola MCGILL Active BACTRIM DS 800-160 MG TAB 1 tab by mouth twice daily 2 TRIMETHOPRIM-SULFAMETHOXAZOLE 93895115773 No Longer Active Kalpesh Dong MD Active HYDROCODONE-ACETAMINOPHEN 5-325 MG TABS 1 PO tid PRN pain 5 HYDROCODONE-ACETAMINOPHEN 73936506114 No Longer Active Abhinva Galvan MD Active IMPLANON 68 MG IMPL IMPLANTED IN LEFT ARM ETONO GESTREL 65555207364 No Longer Active Hira Moser APRN Active AMOXICILLIN 500 MG TABS 2 tabs PO bid x 10 d AM OXICILLIN 35599294880 No Longer Active Kalpesh Dong MD Active LEVAQUIN 500 MG TABS 1 PO q day x 7 days LEVOFL OXACIN 67682371049 No Longer Active Shola MCGILL Active AMITRIPTYLINE HCL 25 MG TAB 1 tab by mouth daily 60 minutes before bedtime AMITRIPTYLINE HCL 54546571216 No Longer Active Shola MCGILL Active LORTAB 5 5-500 MG TABS 1/2 to 1 tablet by mouth go ry 6 hours as needed for pain HYDROCODONE-ACETAMINOPHEN 82652165690 No Longer Active Shola MCGILL Active CEPHALEXIN 500 MG TABS Take one by mouth four times daily, morning, noon, early evening and bedtime. CEPHALEXIN 46870961188 No Long er Active Hira Moser APRN Active TYLENOL/CODEINE #3 300-30 MG TAB 1-2 po q6hr PRN Pain ACETAMINOPHEN-CODEINE 54375592384 No Longer Active Edilberto Marino DO Active PRISTIQ 50 MG [id number]-DMS 1 po qd DESVENLAFAXI NE SUCCINATE 53508548150 No Longer Active Edilberto Marino DO Active PENICILLIN V POTASSIUM 500 MG TAB 1 four times a day 2 PENICILLIN V POTASSIUM 53118763563 No Longer Active Edilberto Marino DO Active DOXYCYCLINE HYCLATE 100 MG CAPS Take one (1) tablet by mouth twice a day DOXYCYCLINE HYCLATE 08306383164 No Longer Active Ronnie Galvan MD Active HYDROCODONE-ACETAMINOPHEN 5-325 MG TABS 1 po q 6hr PRN Pain 2011 HYDROCODONE-ACETAMINOPHEN 14729600882 No Longer Active Rosari joan Perez RN Active BACTRIM DS 800-160 MG TAB 1 tab by mouth twice daily 2 TRIMETHOPRIM-SULFAMETHOXAZOLE 67099508286 No Longer Active Kalpesh Dong MD Active LORTAB 5 5-500 MG TABS 1/2 to 1 tablet by mouth go ry 4 hours as needed for pain HYDROCODONE-ACETAMINOPHEN 03013429815 No Longer Active Kalpesh Dong MD Active GENERESS FE 0.8-25 MG-MCG CHEW Take one by mouth daily NORETHIN-ETH ESTRADIOL-FE 28472654116 No Longer Active Kalpesh Dong MD Active HYDROCODONE-ACETAMINOPHEN 7.5-500 MG TABS 1-2 every 4 hours as needed HYDROCODONE-ACETAMINOPHEN 73239195588 No Longer Activ e Kalpesh Dong MD Active FERROUS SULFATE 325 (65 FE) MG TABS 1 tablet by mouth twice yung y FERROUS SULFATE 25375070821 No Longer Active Kalpesh Dong MD Active IBUPROFEN 600 MG TAB 1 po q6-8hr PRN IBUPROFEN 39128419687 No Longer Active Kalpesh Dong MD Active SPIRONOLACTONE 25 MG TAB 1 tablet by mouth daily 01/22 SPIRONOLACTONE 32171549870 No Longer Active Kalpesh Dong MD Acti ve HYDROCODONE-ACETAMINOPHEN 7.5-325 MG TABS 1 po QID PRN Pain 2011 HYDROCODONE-ACETAMINOPHEN 82828143435 No Longer Active Kalpesh Dong MD Active CLINDAMYCIN HCL 300 MG CAPS 1 po q6hr x 7 days CLINDAMYCIN HCL 81728485415 No Longer Active Edilberto Marino DO Active PREDNISONE 20 MG TAB 2 tabs daily for 4 days, 1 t ab daily for 4 days, 1/2 tab daily for 4 days PREDNISONE 81856459427 No Longer Active Edilberto Marino DO Active PERCOCET 5-325 MG TABS 1 tablet by mouth every 6 hours as ne eded for pain OXYCODONE-ACETAMINOPHEN 83893447765 No Longer Active Abdirahman Rios MD Active VITAMINS TABS Take one by mouth daily MV & MIN W/FE-FA TABS 95929625214 No Longer Active Abdirahman Rios MD Active LUIS 3-0.02 MG TABS 1 tablet by mouth daily as directed DROSPIRENONE-ETHINYL ESTRADIOL 21514836681 No Longer Active Abdirahman Rios MD Active LORATADINE 10 MG TABS 1 tablet by mouth daily L ORATADINE 48691302754 No Longer Active Kalpesh Dong MD Active HYDROCODONE-ACETAMINOPHEN 5-325 MG TABS 1 po q 6hr PRN Pain 2010 HYDROCODONE-ACETAMINOPHEN 34131741241 No Longer Active Edilberto Marino DO Active BACTRIM DS 800-160 MG TAB 1 tab by mouth twice daily 2 TRIMETHOPRIM-SULFAMETHOXAZOLE 07592408301 No Longer Active Abdirahman Rios MD Active 28-0.8 MG TABS Take one by mouth daily 09/20 VIT-FE FUMARATE-FA 68648377487 No Longer Active Abdirahman Rios MD Active CIPRO 500 MG TAB 1 tablet by mouth twice daily CIPROFLOXACIN HCL 92971746899 No Longer Active Abdirahman Rios MD Active BENADRYL 25 MG CAP 1 po q8hr PRN Congestion DIPHENHYDRAMINE HCL 40062917521 No Longer Active Abdirahman Rios MD Active ZOLOFT 50 MG TAB 1 po qd SERTRALINE HCL 179808 95185 No Longer Active Abdirahman Rios MD Active AMOXICILLIN 875 MG TABS 1 tab by mouth twice daily 201 08/09/13 AMOXICILLIN 94636531165 No Longer Active Abdirahman Rios MD Activ e AMOXICILLIN 875 MG TABS 1 tab by mouth twice daily 201 07/19/27 AMOXICILLIN 38975957558 No Longer Active Abdirahman Rios MD Activ e BACTRIM DS 800-160 MG TAB 2 tab by mouth twice daily 2 TRIMETHOPRIM-SULFAMETHOXAZOLE 36641536918 No Longer Active Abdirahman Rios MD Active KEFLEX 500 MG CAP 1 po tid x 10 days CEPHALEXIN 48374514405 No Longer Active Abdirahman Rios MD Active AMOXICILLIN 875 MG TABS 1 tab by mouth twice daily 201 07/18/07 AMOXICILLIN 39562590411 No Longer Active Abdirahman Rios MD Activ e BACTRIM DS 800-160 MG TAB 2 tab by mouth twice daily 2 BACTRIM DS 800-160 MG TAB TRIMETHOPRIM-SULFAMETHOXAZOLE Inactive ZOLOFT 50 MG TAB 1 po qd ZOLOFT 50 MG TAB 3129 41 SERTRALINE HCL Inactive BENADRYL 25 MG CAP 1 po q8hr PRN Congestion BENADRYL 25 MG CAP 0674189 DIPHENHYDRAMINE HCL Inactive 28-0.8 MG TABS Take one by mouth daily 09/20 28-0.8 MG TABS VIT-FE FUMARATE-FA Inactive HYDROCODONE-ACETAMINOPHEN 5-325 MG TABS 1 po q 6hr PRN Pain 2010 HYDROCODONE-ACETAMINOPHEN 5-325 MG TABS 079037 HYDROCODONE-ACETAMINOPHEN Inactive LORATADINE 10 MG TABS 1 tablet by mouth daily LORATADINE 10 MG TABS 662420 LORATADINE Inactive LUIS 3-0.02 MG TABS 1 tablet by mouth daily as directed LUIS 3-0.02 MG TABS DROSPIRENONE-ETHINYL ESTRADIOL Inactive VITAMINS TABS Take one by mouth daily VITAMINS TABS MV & MIN W/FE-FA TABS Inactive PERCOCET 5-325 MG TABS 1 tablet by mouth every 6 hours as ne eded for pain PERCOCET 5-325 MG TABS 6010090 OXYCODONE-ACETAMIN OPHEN Inactive PREDNISONE 20 MG TAB 2 tabs daily for 4 days, 1 t ab daily for 4 days, 1/2 tab daily for 4 days PREDNISONE 20 MG TAB 285496 PREDNISON E Inactive CLINDAMYCIN HCL 300 MG CAPS 1 po q6hr x 7 days CLINDAMYCIN HCL 300 MG CAPS 618919 CLINDAMYCIN HCL Inactive HYDROCODONE-ACETAMINOPHEN 7.5-325 MG TABS 1 po QID PRN Pain 2011 HYDROCODONE-ACETAMINOPHEN 7.5-325 MG TABS 093244 HYDROCODONE-ACETAMINOPHEN Inactive SPIRONOLACTONE 25 MG TAB 1 tablet by mouth daily 01/22 SPIRONOLACTONE 25 MG TAB 224159 SPIRONOLACTONE Inactive IBUPROFEN 600 MG TAB 1 po q6-8hr PRN IBUPROFEN 600 MG TAB 674636 IBUPROFEN Inactive FERROUS SULFATE 325 (65 FE) MG TABS 1 tablet by mouth twice yung y FERROUS SULFATE 325 (65 FE) MG TABS 445825 FERROUS SULF ATE Inactive HYDROCODONE-ACETAMINOPHEN 7.5-500 MG TABS 1-2 every 4 hours as needed HYDROCODONE-ACETAMINOPHEN 7.5-500 MG TABS HYDROCODONE-ACETAMINOPHEN Inactive GENERESS FE 0.8-25 MG-MCG CHEW Take one by mouth daily GENERESS FE 0.8-25 MG-MCG CHEW 5019003 NORETHIN-ETH ESTRADIOL-FE Inactive LORTAB 5 5-500 MG [...] PRN Pain 2011 HYDROCODONE-ACETAMINOPHEN 5-325 MG TABS 649214 HYDROCODONE-ACETAMINOPHEN Inactive DOXYCYCLINE HYCLATE 100 MG CAPS Take one (1) tablet by mouth twice a day DOXYCYCLINE HYCLATE 100 MG CAPS 5727543 DOXYCYCLINE HYCLATE Inactive PENICILLIN V POTASSIUM 500 MG TAB 1 four times a day 2 PENICILLIN V POTASSIUM 500 MG TAB 138047 PENICILLIN V POTASSIUM [place] ctive PRISTIQ 50 MG [id number] 1 po qd PRISTIQ 50 MG [id number] DESVENLAFAXINE SUCCINATE Inactive TYLENOL/CODEINE #3 300-30 MG TAB 1-2 po q6hr PRN Pain TYLENOL/CODEINE #3 300-30 MG TAB 238006 ACETAMINOPHEN-CODEINE Inact krishna CEPHALEXIN 500 MG TABS Take one by mouth four times daily, morning, noon, early evening and bedtime. CEPHALEXIN 500 MG TABS 698627 CEPHALEXIN Inactive LORTAB 5 5-500 MG TABS 1/2 to 1 tablet by mouth go ry 6 hours as needed for pain LORTAB 5 5-500 MG TABS HYDROCODONE-A CETAMINOPHEN Inactive AMITRIPTYLINE HCL 25 MG TAB 1 tab by mouth daily 60 minutes before bedtime AMITRIPTYLINE HCL 25 MG TAB 627463 AMITRIPTYLINE HCL Inactive AMOXICILLIN 500 MG TABS 2 tabs PO bid x 10 d 7 AMOXICILLIN 500 MG TABS 967165 AMOXICILLIN Inactive IMPLANON 68 MG IMPL IMPLANTED IN LEFT ARM IMPLANON 68 MG IMPL ETONOGESTREL Inactive HYDROCODONE-ACETAMINOPHEN 5-325 MG TABS 1 PO tid PRN pain 5 HYDROCODONE-ACETAMINOPHEN 5-325 MG TABS 656338 HYDROCODONE-ACETAMIN OPHEN Inactive BACTRIM DS 800-160 MG TAB 1 tab by mouth twice daily 2 BACTRIM DS 800-160 MG TAB TRIMETHOPRIM-SULFAMETHOXAZOLE Inac tive CEPHALEXIN 500 MG CAPS 1 PO bid x 7 days CEPHALEXIN 500 MG CAPS 246778 CEPHALEXIN Inactive HYDROCODONE-ACETAMINOPHEN 5-325 MG TABS 1 tab by mouth every 6 hours as needed HYDROCODONE-ACETAMINOPHEN 5-325 MG TABS 243522 HYDROCODONE-ACETAMINOPHEN Inactive PROMETHAZINE-CODEINE 6.25-10 MG/5ML SYRP 1 tsp every 6 hrs prn c ough PROMETHAZINE-CODEINE 6.25-10 MG/5ML SYRP 376097 PROMETH AZINE-CODEINE Inactive IBUPROFEN 800 MG TAB 1 pill three times daily as needed for pain IBUPROFEN 800 MG TAB IBUPROFEN Inactive KEFLEX 500 MG CAP 1 tab po tid KEFLEX 500 MG CAP 953243 CEPHALEXIN Inactive HYDROCODONE-ACETAMINOPHEN 7.5-325 MG TABS 1 four times a day as needed for pain HYDROCODONE-ACETAMINOPHEN 7.5-325 MG TABS 633971 HYDROCODONE-ACETAMINOPHEN Inactive BACTRIM DS 800-160 MG TABS by mouth twice a day 11/05 BACTRIM DS 800-160 MG TABS SULFAMETHOXAZOLE-TRIMETHOPRIM Inactive IBUPROFEN 800 MG TABS 1 tid prn IBUPROFEN 800 MG TABS 396216 IBUPROFEN Inactive ENDOCET 10-325 MG TABS 1 q 6 hr prn ENDOC ET 10-325 MG TABS 9647225 OXYCODONE-ACETAMINOPHEN Inactive HYDROCODONE-ACETAMINOPHEN 7.5-325 MG TABS 1 by mouth e very 6 hours as needed for pain HYDROCODONE-ACETAMINOPHEN 7.5-325 MG TABS 142066 HYDROCODONE-ACETAMINOPHEN Inactive PERCOCET 7.5-325 MG TABS 1 PO q 8 hrs PRN pain PERCOCET 7.5-325 MG TABS 7657151 OXYCODONE-ACETAMINOPHEN Inactive LIDODERM 5 % PTCH One patch to painful area [place] On for 12 hrs, off for 12 hrs. LIDODERM 5 % PTCH 2219242 LIDOCAINE Inactiv e PERCOCET 7.5-325 MG TABS 1 PO tid PRN pain PERCOCET 7.5- 325 MG TABS 0043442 OXYCODONE-ACETAMINOPHEN Inactive MOBIC 15 MG TABS 1 tab daily MOBIC 15 MG TABS 15 2695 MELOXICAM Inactive CYCLOBENZAPRINE HCL 10 MG TABS 1/2 - 1 tab PO tid PRN back p ain, muscle spasm CYCLOBENZAPRINE HCL 10 MG TABS 417339 CYCLOBENZA JOSEPH HCL Inactive LORATADINE 10 MG TABS 1 tablet by mouth daily LORATADINE 10 MG TABS 271730 LORATADINE Inactive HYDROCODONE-ACETAMINOPHEN 10-325 MG TABS 1 by mouth ev chaka 8 hours as needed for pain HYDROCODONE-ACETAMINOPHEN 10-325 MG TABS 654212 HYDROCODONE-ACETAMINOPHEN Inactive LC-5 LIDOCAINE 5 % CREA apply 1 time daily to affected area 2013 LC-5 LIDOCAINE 5 % CREA LIDOCAINE (ANORECTAL) In active PERCOCET 5-325 MG TAB 1 every 6 hours as needed PERCOCET 5-325 MG TAB 8266197 OXYCODONE-ACETAMINOPHEN Inactive KEFLEX 500 MG CAP 1 po qid KEFLEX 500 MG CAP 30 9114 CEPHALEXIN Inactive PROAIR HFA 108 (90 BASE) MCG/ACT AERS 2 puff q 4-6 hrs PRN 01/24 PROAIR HFA 108 (90 BASE) MCG/ACT AERS ALBUTEROL SULFATE Inactive PERCOCET 10-325 MG ORAL TABS 1 every 4 hours as needed PERCOCET 10-325 MG ORAL TABS 5427105 OXYCODONE-ACETAMINOPHEN Inactiv e EMLA 2.5-2.5 % EXT CREA apply to skin lesion q 6 hours, prn 2014 EMLA 2.5-2.5 % EXT CREA 168035 LIDOCAINE-PRILOCAINE [place] ctive PERCOCET 10-325 MG TABS 1 tab by mouth every 6 hours , use sparingly for severe pain PERCOCET 10-325 MG TABS 5343244 OXYCODONE-ACETAMINOPHEN Inactive AMOXICILLIN 875 MG TABS 1 tab by mouth twice daily 201 07/18/07 AMOXICILLIN 875 MG TABS 758162 AMOXICILLIN Inactive KEFLEX 500 MG CAP 1 po tid x 10 days KEFLEX 500 MG CAP 542759 CEPHALEXIN Inactive AMOXICILLIN 875 MG TABS 1 tab by mouth twice daily 201 07/19/27 AMOXICILLIN 875 MG TABS 655590 AMOXICILLIN Inactive AMOXICILLIN 875 MG TABS 1 tab by mouth twice daily 201 08/09/13 AMOXICILLIN 875 MG TABS 374602 AMOXICILLIN Inactive CIPRO 500 MG TAB 1 tablet by mouth twice daily CIPRO 500 MG TAB 935992 CIPROFLOXACIN HCL Inactive BACTRIM DS 800-160 MG TAB 1 tab by mouth twice daily 2 BACTRIM DS 800-160 MG TAB TRIMETHOPRIM-SULFAMETHOXAZOLE Inac tive LEVAQUIN 500 MG TABS 1 PO q day x 7 days LEVAQUIN 500 MG TABS 451960 LEVOFLOXACIN Inactive CLINDAMYCIN HCL 300 MG CAPS 1 po QID x 7 days CLINDAMYCIN HCL 300 MG CAPS 262987 CLINDAMYCIN HCL Inactive AUGMENTIN 875-125 MG TAB 1 tab by mouth twice daily with food 20 22/05/07 AUGMENTIN 875-125 MG TAB 640685 AMOXICILLIN-POT [place]VULA [place] Inactive DIFLUCAN 150 MG TAB 1 qODay x 2 doses DIFLUCAN 150 MG TAB 663704 FLUCONAZOLE Inactive PREDNISONE 20 MG TAB 2 tabs daily for 3 days, 1 t ab daily for 3 days, 1/2 tab daily for 2 days PREDNISONE 20 MG TAB 921752 PREDNISON E Inactive AUGMENTIN 875-125 MG TAB 1 tab by mouth twice daily with food 20 21/10/13 AUGMENTIN 875-125 MG TAB 168206 AMOXICILLIN-POT CLAVULA [place] Inactive Advance Directives Directive Description Start Date PERMISSION TO SHARE Immunizations Vaccine Administration Date Value Standard Alf cription Seasonal influenza vaccine, injectable, containing preservative, for > 3 years old (Afluria, FluLaval, Fluzone, Fluvirin, Fluarix, Agriflu(>= 18 yo)) Fluzone (>3 yrs.) [[id number]] Influenza, seasonal, inject able Seasonal influenza vaccine, injectable, preservative free, for > 3 years old (Afluria, FluLaval, Fluzone, Fluvirin, Fluarix, Agriflu(>= 18 yo)) Fluzone preservative free (>3 yrs.) [[id number]] Influenza, seasonal, injectable, preservative free Seasonal influenza vaccine, injectable, containing preservative, for > 3 years old (Afluria, FluLaval, Fluzone, Fluvirin, Fluarix, Agriflu(>= 18 yo)) Fluzone (>3 yrs.) [[id number]] Influenza, seasonal, inject able Seasonal influenza vaccine, injectable, containing preservative, for > 3 years old (Afluria, FluLaval, Fluzone, Fluvirin, Fluarix, Agriflu(>= 18 yo)) Fluzone (>3 yrs.) [[id number]] Influenza, seasonal, inject able dT (Diphtheria and [...] Panel - Chemistry sodium, serum 142 mmol/L 646-758 6005/05/12 potassium, serum 4.8 mmol/L 3.5-5.2 chloride, serum [...] Panel - Chemistry cholesterol, serum 165 mg/dL 765-949 8541/05/12 triglyceride, serum, fasting 524 mg/dL 30-200 HDL [...] negative Encounters Code Encounter Date Provider Facility CPT-97297 Level 3 Est. Patient 14:29:53 CDT Abhinav Galvan MD [facility] CPT-78401 Level 2 Est. Patient 16:33:01 CDT Kalpesh goins MD [facility] CPT-59390 Level 4 Est. Patient 16:44:56 CDT Abdirahman Rios MD [facility] CPT-76462 Level 2 Est. Patient 07:49:32 CDT Kalpesh goins MD [facility] CPT-70038 Level 3 New Patient 15:47:11 PHARMACISTS Bj huber MD [facility] CPT-82633 Level 4 Est. Patient 14:37:38 PHARMACISTS Abdirahman Rios MD [facility] CPT-77832 Level 2 Est. Patient 13:32:17 PHARMACISTS Kalpesh goins MD [facility] CPT-32893 Level 3 Est. Patient 17:32:57 PHARMACISTS Edilberto Thao Rigo te DO [facility] CPT-01051 Level 3 Est. Patient 17:22:33 PHARMACISTS Edilberto Keesha Rigo te DO [facility] CPT-60953 Level 2 Est. Patient 16:57:09 PHARMACISTS Kalpesh goins MD [facility] CPT-23828 Level 3 Est. Patient 14:03:08 PHARMACISTS Abdirahman Rios MD [facility] CPT-11800 Level 3 Est. Patient 18:12:34 CDT Shola Wright [facility] CPT-95442 Level 3 Est. Patient 19:34:46 CDT [facility] CPT-32063 Level 3 Est. Patient 14:19:37 CDT Abdirahman Rios MD [facility] CPT-38710 Level 3 Est. Patient 14:11:58 CDT Kalpesh goins MD [facility] CPT-62634 Level 3 Est. Patient 16:50:[address] [facility] CPT-05087 Level 3 Est. Patient 17:11:32 PHARMACISTS Brandie bates MD PhD [facility] CPT-10168 Level 3 Est. Patient 16:31:47 PHARMACISTS Shola Wright [facility] CPT-07399 Level 3 Est. Patient 17:51:10 PHARMACISTS Abhinav Galvan MD [facility] CPT-29692 Level 4 Est. Patient 12:54:56 PHARMACISTS Kalpesh goins MD [facility] CPT-04595 Level 4 Est. Patient 12:53:56 PHARMACISTS Kalpesh goins MD [facility] CPT-52277 Level 3 Est. Patient 17:56:58 CDT Shola Wright [facility] CPT-31026 Level 3 Est. Patient 14:26:[address] [facility] CPT-50301 Level 3 Est. Patient 09:38:41 CDT Shola Wright [facility] CPT-24646 Level 3 Est. Patient 14:45:26 CDT Edilberto tiwari [facility] CPT-84943 Level 3 Est. Patient 10:51:33 CDT Hira muniz [facility] [place][note 2] CPT-33272 Level 3 Est. Patient 11:57:55 PHARMACISTS Shola Thao Adriana [facility] CPT-12943 Level 3 Est. Patient 09:53:33 PHARMACISTS Edilberto tiwari [facility] CPT-84175 Level 3 Est. Patient 14:42:54 PHARMACISTS Abhinav Galvan MD [facility] CPT-10670 Level 3 Est. Patient 15:10:02 CDT Janak MCGILL [facility] CPT-12930 Level 3 Est. Patient 15:20:20 CDT Theo dennis MD [facility] CPT-54508 Level 2 Est. Patient 14:08:57 CDT Kalpesh goins MD [facility] CPT-64315 Level 3 Est. Patient 13:56:19 CDT Abdirahman Rios MD [facility] CPT-75478 Level 3 Est. Patient 13:59:37 CDT Abdirahman Rios MD [facility] CPT-73944 Level 2 Est. Patient 14:44:59 CDT Kalpesh goins MD [facility]-35579 Level 3 Est. Patient 06:06:23 CDT Edilberto tiwari [facility] CPT-75958 Level 3 Est. Patient 15:23:54 CDT Abdirahman Rios MD [facility] CPT-06895 Level 3 Est. Patient 15:43:49 CDT Abdirahman Rios MD [facility] CPT-87329 Level 3 Est. Patient 12:46:47 PHARMACISTS Abdirahman Rios MD [facility] CPT-64688 Level 3 Est. Patient 08:13:35 PHARMACISTS Abdirahman Rios MD [facility] CPT-31795 Level 2 Est. Patient 09:36:42 PHARMACISTS Abdirahman Rios MD [facility] CPT-04657 Level 3 Est. Patient 10:56:43 CDT Abdirahman Rios MD [facility] CPT-39815 Level 3 Est. Patient 18:24:52 CDT Abdirahman Rios MD [facility] CPT-53061 Level 3 Est. Patient 13:27:22 CDT Abdirahman Rios MD [facility] Procedures Code Procedure Name Date Entry Date Standard Desc ription CPT-45414 Postop F/U Visit 15:27:43 CDT CPT-97815 Postop F/U Visit 14:40:59 CDT CPT-47952 Postop F/U Visit 15:02:46 CDT CPT-18773 Postop F/U Visit 11:29:00 PHARMACISTS CPT-J0696 Rocephin 1000 mg (Ceftriaxone) 17:22:33 PHARMACISTS CPT-77931 Postop F/U Visit 18:41:07 PHARMACISTS CPT-90491 Postop F/U Visit 08:19:08 PHARMACISTS CPT-25411 Immunization Single Admin 16:41:53 CDT 2013 CPT-26163 Fluzone Quadrivalent Intramuscular Suspe nsion 0.5 ML 16:41:53 CDT CPT-OV Office Visit 16:39:18 CDT CPT-OV Office Visit 16:16:36 CDT CPT-OV Office Visit 15:34:48 CDT CPT-61406 Postop F/U Visit 14:50:12 CDT CPT-34573 Postop F/U Visit 14:41:10 CDT CPT-91436 Venipuncture Draw Fee 11:38:04 PHARMACISTS CPT-47611 Postop F/U Visit 19:02:59 PHARMACISTS CPT-31440 Postop F/U Visit 12:04:54 PHARMACISTS CPT-88041 Administration single or combination vac cine inc oral 15:56:43 CDT CPT-29738 Influenza split virus > age 3 15:56:43 CDT CPT-26483 Hand comp min 3V 14:25:19 CDT CPT-79517 Postop F/U Visit 21:40:51 CDT CPT-27009 Postop F/U Visit 10:58:43 CDT CPT-36172 Administration single or combination vac cine inc oral 12:33:54 PHARMACISTS CPT-46022 Influenza Preservative Free split virus >age 3 12:33:54 PHARMACISTS CPT-45628 Administration single or combination vac cine inc oral 09:30:51 CDT CPT-32175 Influenza split virus > age 3 09:30:51 CDT CPT-64194 Postop F/U Visit 15:14:53 CDT CPT-23917 Postop F/U Visit 13:50:14 CDT CPT-92846 Postop F/U Visit 13:34:52 CDT CPT-OV Office Visit 16:55:03 CDT CPT-59697 Scammon of cervix w bx ECC 13:32:50 CDT 10/19 CPT-J1885 Toradol 60 mg (Ketorolac) 15:31:59 CDT 2011 CPT-J1885 Toradol 60 mg (Ketorolac) 15:23:54 CDT 2011 CPT-71064 Visit 11:34:37 PHARMACISTS CPT-70253 Visit 10:52:39 PHARMACISTS CPT-51537 Visit 10:12:02 PHARMACISTS CPT-13261 Visit 11:22:43 PHARMACISTS CPT-17165 Visit 11:24:12 PHARMACISTS CPT-13462 Visit 10:47:05 PHARMACISTS CPT-OV Office Visit 10:26:16 PHARMACISTS CPT-OV Office Visit 15:34:31 PHARMACISTS CPT-10248 Visit 10:42:08 PHARMACISTS CPT-93872 Visit 10:52:45 PHARMACISTS CPT-000 Give Appropriate Flu Vaccine 16:56:41 CDT 2 CPT-19333 Administration single or combination vac cine inc oral 10:33:21 CDT CPT-23248 Influenza split virus > age 3 10:33:21 CDT CPT-08076 Visit 13:23:09 CDT CPT-69850 Visit 18:24:52 CDT CPT-69716 Sono OB comp > 14 weeks 12:07:49 CDT 04/07
--- OUTSIDE RECORDS SUMMARY | 2020-01-18 16:01 | XMS REPORT | Clinical Summary ---
Author Author Admin, Jeri Rashid Organization [facility] Address Unknown Phone Unavailable Allergies, Adverse [...] unspecified SINUSITIS, ACUTE 461.9 Active Rajni Alcazar MANAGER STAR Acute sinusitis, unspecified BACK PAIN 724.5 Resolved [...] against influenza Contact dermatitis due to poison mrailee 692.6 Resolved Abdirahman Rios MD Contact dermatitis [...] ENCOUNTER FOR THERAPEUTIC DRUG MONITORING ICD-V58.83 Inactive Godo Julian MD AMENORRHEA ICD-626.0 Jose M sierra [...] apply q 6 hours, prn 08/03 LIDOCAINE [id number] No Longer Active Kalpesh Dong MD Active PERCOCET 10-325 MG TABS 1 tablet every 8 hours as needed for antonia n OXYCODONE-ACETAMINOPHEN 63054572193 No Longer Active Kalpesh Dong MD Active HYDROCODONE-ACETAMINOPHEN 5-325 MG TABS 1 tab by mouth every 6 hours as needed for pain HYDROCODONE-ACETAMINOPHEN 77514289258 No Longer Active Kalpesh Dong MD Active PERCOCET 10-325 MG ORAL TABS 1 every 4 hous as needed OXYCODONE-ACETAMINOPHEN 56878831312 Active Hira Moser APRN Active GLYDO 2 % EXT GEL apply to painful areas as needed LIDOCAINE HCL 54499816220 Active Kalpesh Dong MD Active LC-4 LIDOCAINE 4 % EXT CREA apply to painful area every 12 h ours or as needed LIDOCAINE 80495393399 Active Kalpesh Dong MD Active AUGMENTIN 875-125 MG TAB 1 tab by mouth twice daily with food 20 23/05/16 AMOXICILLIN-POT CLAVULANATE 90977265597 No Longer Active Lizeth hi Yokum MANAGER STAR 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 FLUTICASONE PROPIONATE 04782920679 No Longer Ac tive Rajni Yokum MANAGER STAR Active PERCOCET 10-325 MG ORAL TABS take 1 tab by mouth q 4hours as needed for pain OXYCODONE-ACETAMINOPHEN 30416886356 No Longer Active Rajni Yokum MANAGER STAR Active PERCOCET 10-325 MG ORAL TABS one every 6 hours prn pain OXYCODONE-ACETAMINOPHEN 86795970561 No Longer Active Rajni Yokum MANAGER STAR Active IBUPROFEN 800 MG TABS 1 tab po tid, with food I BUPROFEN 84042538908 Active Hira Moser APRN Active DICLOFENAC SODIUM 50 MG TBEC 1 tablet by mouth four times da tom PRN Pain DICLOFENAC SODIUM 29231618395 No Longer Active Rajni Yokum MANAGER STAR Active VIIBRYD 10 & 20 & 40 MG KIT 1 po qd as directed 07/24 VILAZODONE HCL 19642975836 No Longer Active Rajni Yoyanaum MANAGER STAR Active ONDANSETRON 4 MG TBDP 1 q4h PRN nausea ONDANSET KELBY 57541772311 No Longer Active Rajni Yoyanaum MANAGER STAR Active PERCOCET 10-325 MG TABS 1 tablet every 8 hours as needed for antonia n OXYCODONE-ACETAMINOPHEN 14452165195 No Longer Active Rajni cox MANAGER STAR Active HYDROCODONE-ACETAMINOPHEN 5-325 MG TABS 1 po TID PRN Pain 9 HYDROCODONE-ACETAMINOPHEN 95375026262 No Longer Active Abdirahman Rios MD Active RDOKVAMXYD-LOI-OXFBEJOS 50-325-40 MG ORAL CAPS 1-2 po TID [place] N Headache BHIUEGALAW-ASVNYYU-WMKDECOU 60318450531 No Longer Act krishna Kalpesh Dong MD Active ALPRAZOLAM 0.5 MG TABS 1 po BID PRN Anxiety ALP RAZOLAM 57629096137 No Longer Active Kalpesh Dong MD Active TRAZODONE HCL 100 MG TAB 0.5 to 1 po qHS PRN Insomnia TRAZODONE HCL 12178310890 No Longer Active Kalpesh Dong MD Activ e HYDROCODONE-ACETAMINOPHEN 5-325 MG TABS 1 po q6hr PRN Pain 04/09 HYDROCODONE-ACETAMINOPHEN 69006033819 No Longer Active Kalpesh Dong MD Active CYMBALTA 30 MG CPEP 1 cap by mouth daily DULOXE CLEO HCL 34280245375 No Longer Active Abdirahman Rios MD Active IBUPROFEN 600 MG ORAL TABS 1 by mouth twice a day 2014 IBUPROFEN 72002308928 No Longer Active Abdirahman Rios MD Activ e PERCOCET 5-325 MG TAB 1 tab po q 6 hours, prn severe pain 1 OXYCODONE-ACETAMINOPHEN 10380050713 No Longer Active Abdirahman Rios MD Active SPRINTEC 28 0.25-35 MG-MCG TABS 1 pill by mouth daily for bi rth control NORGESTIMATE-ETH ESTRADIOL 14424238555 No Longer Acti ve Matthewllina Frazell MANAGER STAR Active CYCLOBENZAPRINE HCL 10 MG TABS 1 tablet by mouth three times daily as needed for muscle spasm/pain CYCLOBENZAPRINE HCL 86399178987 No Longer Active Jillina Frazell MANAGER STAR Active HYDROCODONE-ACETAMINOPHEN 5-325 MG TABS 1 po q6hr PRN Pain 03/09 HYDROCODONE-ACETAMINOPHEN 88873393248 No Longer Active Matthewllina Frazel l MANAGER STAR Active AUGMENTIN 500-125 MG ORAL TABS 1 by mouth twice a day AMOXICILLIN-POT CLAVULANATE 75041104308 No Longer Active Jillina Frazell MANAGER STAR Active DICLOFENAC SODIUM 50 MG TBEC 1 tablet by mouth four times da tom PRN Pain DICLOFENAC SODIUM 56300002637 No Longer Active Jillin a Karmenl MANAGER STAR Active PROMETHAZINE HCL 25 MG TABS 1 four times a day as needed for nausea/vomiting PROMETHAZINE HCL 80351085613 No Longer Active Abdirahman Rios MD Active HYDROCODONE-ACETAMINOPHEN 5-325 MG TABS 1 tab by mouth every 6 hours as needed PRN Pain HYDROCODONE-ACETAMINOPHEN 24479484906 No Longer Active Abdirahman Rios MD Active GEMFIBROZIL 600 MG TABS 1 po BID GEMFIBROZIL 36128818 005 Active Abdirahman Rios MD Active PERCOCET 5-325 MG ORAL TABS 1 every 6 hours as needed OXYCODONE-ACETAMINOPHEN 76532575843 No Longer Active Abdirahman Rios MD Active PERCOCET 5-325 MG TAB 1 tab po q 6 -8 hours, prn for severe pain OXYCODONE-ACETAMINOPHEN 43090788397 No Longer Active Abdirahman Rios MD Active HYDROCODONE-ACETAMINOPHEN 5-325 MG TABS 1 po q6hr PRN pain 06/30 HYDROCODONE-ACETAMINOPHEN 70510993226 No Longer Active Hira roman MANAGER STAR Active GLUCOPHAGE 500 MG ORAL TABS one by mouth 3 times a day METFORMIN HCL 00446363700 No Longer Active Matthewllina Karmenl MANAGER STAR Ac tive PERCOCET 10-325 MG TABS 1 tab by mouth every 6 hours , use sparingly for severe pain OXYCODONE-ACETAMINOPHEN 08529549796 No Longer A ctive Abdirahman Rios MD Active EMLA 2.5-2.5 % EXT CREA apply to skin lesion q 6 hours, prn 2014 LIDOCAINE-PRILOCAINE 84383316066 No Longer Active Abdirahman Rios MD Active PERCOCET 10-325 MG ORAL TABS 1 every 4 hours as needed OXYCODONE-ACETAMINOPHEN 93942809518 No Longer Active Abdirahman Rios MD Active AUGMENTIN 875-125 MG TAB 1 tab by mouth twice daily with food 20 21/10/13 AMOXICILLIN-POT CLAVULANATE 48702745837 No Longer Active Ursula Moser MANAGER STAR Active PROAIR HFA 108 (90 BASE) MCG/ACT AERS 2 puff q 4-6 hrs PRN 01/24 ALBUTEROL SULFATE 81620774611 No Longer Active Kalpesh Dnog MD Active PREDNISONE 20 MG TAB 2 tabs daily for 3 days, 1 t ab daily for 3 days, 1/2 tab daily for 2 days PREDNISONE 26993575123 No Longer Active Abdirahman Rios MD Active KEFLEX 500 MG CAP 1 po qid CEPHALEXIN 781422471 20 No Longer Active Kalpesh Dong MD Active PERCOCET 5-325 MG TAB 1 every 6 hours as needed OXYCODONE-ACETAMINOPHEN 68521312572 No Longer Active Shola MCGILL Active LC-5 LIDOCAINE 5 % CREA apply 1 time daily to affected area 2013 LIDOCAINE (ANORECTAL) 43006482810 No Longer Active Hira muniz MANAGER STAR Active HYDROCODONE-ACETAMINOPHEN 10-325 MG TABS 1 by mouth ev chaka 8 hours as needed for pain HYDROCODONE-ACETAMINOPHEN 88636175785 No Longer Active Jillina Joyzell MANAGER STAR Active LORATADINE 10 MG TABS 1 tablet by mouth daily L ORATADINE 70633890480 No Longer Active Jillina Frazell MANAGER STAR Active DIFLUCAN 150 MG TAB 1 qODay x 2 doses FLUCONAZO LE 92513435910 No Longer Active Jillina Frazell MANAGER STAR Active CYCLOBENZAPRINE HCL 10 MG TABS 1/2 - 1 tab PO tid PRN back p ain, muscle spasm CYCLOBENZAPRINE HCL 54547815382 No Longer Active Karen siri Frazell MANAGER STAR Active AUGMENTIN 875-125 MG TAB 1 tab by mouth twice daily with food 20 22/05/07 AMOXICILLIN-POT CLAVULANATE 22612156923 No Longer Active Loida Rios MD Active MOBIC 15 MG TABS 1 tab daily MELOXICAM 941495220 14 No Longer Active Abdirahman Rios MD Active PERCOCET 7.5-325 MG TABS 1 PO tid PRN pain OXYCODONE-ACETAMINOPHEN 49399053263 No Longer Active Abdirahman Rios MD Active LIDODERM 5 % PTCH One patch to painful area [place] N. On for 12 hrs, off for 12 hrs. LIDOCAINE 93940568541 No Longer Active Abdirahman Rios MD Active PERCOCET 7.5-325 MG TABS 1 PO q 8 hrs PRN pain OXYCODONE-ACETAMINOPHEN 84636217774 No Longer Active Shola MCGILL Active HYDROCODONE-ACETAMINOPHEN 7.5-325 MG TABS 1 by mouth e very 6 hours as needed for pain HYDROCODONE-ACETAMINOPHEN 58142688771 No Longer Active Good Julian MD Active CLINDAMYCIN HCL 300 MG CAPS 1 po QID x 7 days CLINDAMYCIN HCL 99384794979 No Longer Active Abdirahman Rios MD Activ e BACTRIM DS 800-160 MG TABS 1 po BID x 7 days 5 SULFAMETHOXAZOLE-TRIMETHOPRIM 42438566049 No Longer Active Abdirahman Rios MD Active ENDOCET 10-325 MG TABS 1 q 6 hr prn OXYCODONE-ACETAMINOPHEN 13630825871 No Longer Active Abdirahman Rios MD Active IBUPROFEN 800 MG TABS 1 tid prn IBUPROFEN 526719 22927 No Longer Active Abdirahman Rios MD Active BACTRIM DS 800-160 MG TABS by mouth twice a day 11/05 SULFAMETHOXAZOLE-TRIMETHOPRIM 09171177653 No Longer Active Good Julian MD Active HYDROCODONE-ACETAMINOPHEN 7.5-325 MG TABS 1 four times a day as needed for pain HYDROCODONE-ACETAMINOPHEN 65309848590 No Longer Activ e Good Julian MD Active KEFLEX 500 MG CAP 1 tab po tid CEPHALEXIN 255534 83049 No Longer Active Hira Moser APRN Active IBUPROFEN 800 MG TAB 1 pill three times daily as needed for pain IBUPROFEN 53383857658 No Longer Active Kalpesh Dong MD Active PROMETHAZINE-CODEINE 6.25-10 MG/5ML SYRP 1 tsp every 6 hrs prn c ough PROMETHAZINE-CODEINE 23755535662 No Longer Active Kalpesh Carr Active HYDROCODONE-ACETAMINOPHEN 5-325 MG TABS 1 tab by mouth every 6 hours as needed HYDROCODONE-ACETAMINOPHEN 35322209329 No Longer Activ e Shola MCGILL Active CEPHALEXIN 500 MG CAPS 1 PO bid x 7 days CEPHAL EXIN 49310596285 No Longer Active Shola MCGILL Active BACTRIM DS 800-160 MG TAB 1 tab by mouth twice daily 2 TRIMETHOPRIM-SULFAMETHOXAZOLE 07852497084 No Longer Active Kalpesh Dong MD Active HYDROCODONE-ACETAMINOPHEN 5-325 MG TABS 1 PO tid PRN pain 5 HYDROCODONE-ACETAMINOPHEN 66869632333 No Longer Active Abhinav Galvan MD Active IMPLANON 68 MG IMPL IMPLANTED IN LEFT ARM ETONO GESTREL 78341105136 No Longer Active Hira Moser APRN Active AMOXICILLIN 500 MG TABS 2 tabs PO bid x 10 d AM OXICILLIN 54379159771 No Longer Active Kalpesh Dong MD Active LEVAQUIN 500 MG TABS 1 PO q day x 7 days LEVOFL OXACIN 63050129359 No Longer Active Shola MCGILL Active AMITRIPTYLINE HCL 25 MG TAB 1 tab by mouth daily 60 minutes before bedtime AMITRIPTYLINE HCL 92261515216 No Longer Active Shola MCGILL Active LORTAB 5 5-500 MG TABS 1/2 to 1 tablet by mouth go ry 6 hours as needed for pain HYDROCODONE-ACETAMINOPHEN 89092605657 No Longer Active Shola MCGILL Active CEPHALEXIN 500 MG TABS Take one by mouth four times daily, morning, noon, early evening and bedtime. CEPHALEXIN 02924366830 No Long er Active Hira Moser APRN Active TYLENOL/CODEINE #3 300-30 MG TAB 1-2 po q6hr PRN Pain ACETAMINOPHEN-CODEINE 45249065040 No Longer Active Edilberto Marino DO Active PRISTIQ 50 MG [id number] 1 po qd DESVENLAFAXI NE SUCCINATE 74632715211 No Longer Active Edilberto Marino DO Active PENICILLIN V POTASSIUM 500 MG TAB 1 four times a day 2 PENICILLIN V POTASSIUM 96264784842 No Longer Active Edilberto Marino DO Active DOXYCYCLINE HYCLATE 100 MG CAPS Take one (1) tablet by mouth twice a day DOXYCYCLINE HYCLATE 23498643757 No Longer Active Ronnie Galvan MD Active HYDROCODONE-ACETAMINOPHEN 5-325 MG TABS 1 po q 6hr PRN Pain 2011 HYDROCODONE-ACETAMINOPHEN 51715842208 No Longer Active Patri joan Perez RN Active BACTRIM DS 800-160 MG TAB 1 tab by mouth twice daily 2 TRIMETHOPRIM-SULFAMETHOXAZOLE 02162413271 No Longer Active Kalpesh Dong MD Active LORTAB 5 5-500 MG TABS 1/2 to 1 tablet by mouth go ry 4 hours as needed for pain HYDROCODONE-ACETAMINOPHEN 74153456629 No Longer Active Kalpesh Dong MD Active GENERESS FE 0.8-25 MG-MCG CHEW Take one by mouth daily NORETHIN-ETH ESTRADIOL-FE 15090994866 No Longer Active Kalpesh Dong MD Active HYDROCODONE-ACETAMINOPHEN 7.5-500 MG TABS 1-2 every 4 hours as needed HYDROCODONE-ACETAMINOPHEN 98889959678 No Longer Activ e Kalpesh Dong MD Active FERROUS SULFATE 325 (65 FE) MG TABS 1 tablet by mouth twice yung y FERROUS SULFATE 14422936785 No Longer Active Kalpesh Dong MD Active IBUPROFEN 600 MG TAB 1 po q6-8hr PRN IBUPROFEN 92247897418 No Longer Active Kalpesh Dong MD Active SPIRONOLACTONE 25 MG TAB 1 tablet by mouth daily 01/22 SPIRONOLACTONE 45277626738 No Longer Active Kalpesh Dong MD Acti ve HYDROCODONE-ACETAMINOPHEN 7.5-325 MG TABS 1 po QID PRN Pain 2011 HYDROCODONE-ACETAMINOPHEN 26472546113 No Longer Active Kalpesh Dong MD Active CLINDAMYCIN HCL 300 MG CAPS 1 po q6hr x 7 days CLINDAMYCIN HCL 49487794894 No Longer Active Edilberto Marino DO Active PREDNISONE 20 MG TAB 2 tabs daily for 4 days, 1 t ab daily for 4 days, 1/2 tab daily for 4 days PREDNISONE 21035804321 No Longer Active Edilberto Marino DO Active PERCOCET 5-325 MG TABS 1 tablet by mouth every 6 hours as ne eded for pain OXYCODONE-ACETAMINOPHEN 27919755955 No Longer Active Abdirahman Rios MD Active VITAMINS TABS Take one by mouth daily MV & MIN W/FE-FA TABS 42617385866 No Longer Active Abdirahman Rios MD Active LUIS 3-0.02 MG TABS 1 tablet by mouth daily as directed DROSPIRENONE-ETHINYL ESTRADIOL 24440623906 No Longer Active Abdirahman Rios MD Active LORATADINE 10 MG TABS 1 tablet by mouth daily L ORATADINE 13206959396 No Longer Active Kalpesh Dong MD Active HYDROCODONE-ACETAMINOPHEN 5-325 MG TABS 1 po q 6hr PRN Pain 2010 HYDROCODONE-ACETAMINOPHEN 01670222739 No Longer Active Edilberto Marino DO Active BACTRIM DS 800-160 MG TAB 1 tab by mouth twice daily 2 TRIMETHOPRIM-SULFAMETHOXAZOLE 14910865041 No Longer Active Abdirahman Rios MD Active 28-0.8 MG TABS Take one by mouth daily 09/20 VIT-FE FUMARATE-FA 57803612571 No Longer Active Abdirahman Rios MD Active CIPRO 500 MG TAB 1 tablet by mouth twice daily CIPROFLOXACIN HCL 79332649306 No Longer Active Abdirahman Rios MD Active BENADRYL 25 MG CAP 1 po q8hr PRN Congestion DIPHENHYDRAMINE HCL 46794814851 No Longer Active Abdirahman Rios MD Active ZOLOFT 50 MG TAB 1 po qd SERTRALINE HCL 429984 19501 No Longer Active Abdirahman Rios MD Active AMOXICILLIN 875 MG TABS 1 tab by mouth twice daily 201 08/09/13 AMOXICILLIN 50260882129 No Longer Active Abdirahman Rios MD Activ e AMOXICILLIN 875 MG TABS 1 tab by mouth twice daily 201 07/19/27 AMOXICILLIN 46703285811 No Longer Active Abdirahman Rios MD Activ e BACTRIM DS 800-160 MG TAB 2 tab by mouth twice daily 2 TRIMETHOPRIM-SULFAMETHOXAZOLE 69330763971 No Longer Active Abdirahman Rios MD Active KEFLEX 500 MG CAP 1 po tid x 10 days CEPHALEXIN 10667702327 No Longer Active Abdirahman Rios MD Active AMOXICILLIN 875 MG TABS 1 tab by mouth twice daily 201 07/18/07 AMOXICILLIN 60476559067 No Longer Active Abdirahman Rios MD Activ e BACTRIM DS 800-160 MG TAB 2 tab by mouth twice daily 2 BACTRIM DS 800-160 MG TAB 647461 TRIMETHOPRIM-SULFAMETHOXAZOLE Inactive ZOLOFT 50 MG TAB 1 po qd ZOLOFT 50 MG TAB 3129 41 SERTRALINE HCL Inactive BENADRYL 25 MG CAP 1 po q8hr PRN Congestion BENADRYL 25 MG CAP [id number] DIPHENHYDRAMINE HCL Inactive 28-0.8 MG TABS Take one by mouth daily 09/20 28-0.8 MG TABS VIT-FE FUMARATE-FA Inactive HYDROCODONE-ACETAMINOPHEN 5-325 MG TABS 1 po q 6hr PRN Pain 2010 HYDROCODONE-ACETAMINOPHEN 5-325 MG TABS 375441 HYDROCODONE-ACETAMINOPHEN Inactive LORATADINE 10 MG TABS 1 tablet by mouth daily LORATADINE 10 MG TABS 078809 LORATADINE Inactive LUIS 3-0.02 MG TABS 1 tablet by mouth daily as directed LUIS 3-0.02 MG TABS 882174 DROSPIRENONE-ETHINYL ESTRADIOL Inactive VITAMINS TABS Take one by mouth daily VITAMINS TABS MV & MIN W/FE-FA TABS Inactive PERCOCET 5-325 MG TABS 1 tablet by mouth every 6 hours as ne eded for pain PERCOCET 5-325 MG TABS 7844408 OXYCODONE-ACETAMIN OPHEN Inactive PREDNISONE 20 MG TAB 2 tabs daily for 4 days, 1 t ab daily for 4 days, 1/2 tab daily for 4 days PREDNISONE 20 MG TAB 449320 PREDNISON E Inactive CLINDAMYCIN HCL 300 MG CAPS 1 po q6hr x 7 days CLINDAMYCIN HCL 300 MG CAPS 511392 CLINDAMYCIN HCL Inactive HYDROCODONE-ACETAMINOPHEN 7.5-325 MG TABS 1 po QID PRN Pain 2011 HYDROCODONE-ACETAMINOPHEN 7.5-325 MG TABS 367339 HYDROCODONE-ACETAMINOPHEN Inactive SPIRONOLACTONE 25 MG TAB 1 tablet by mouth daily 01/22 SPIRONOLACTONE 25 MG TAB 181115 SPIRONOLACTONE Inactive IBUPROFEN 600 MG TAB 1 po q6-8hr PRN IBUPROFEN 600 MG TAB 016533 IBUPROFEN Inactive FERROUS SULFATE 325 (65 FE) MG TABS 1 tablet by mouth twice yung y FERROUS SULFATE 325 (65 FE) MG TABS 651250 FERROUS SULF ATE Inactive HYDROCODONE-ACETAMINOPHEN 7.5-500 MG TABS 1-2 every 4 hours as needed HYDROCODONE-ACETAMINOPHEN 7.5-500 MG TABS HYDROCODONE-ACETAMINOPHEN Inactive GENERESS FE 0.8-25 MG-MCG CHEW Take one by mouth daily GENERESS FE 0.8-25 MG-MCG CHEW 5042251 NORETHIN-ETH ESTRADIOL-FE Inactive LORTAB 5 5-500 MG TABS 1/2 to 1 tablet by mouth go ry 4 hours as needed for pain LORTAB 5 5-500 MG TABS HYDROCODONE-A CETAMINOPHEN Inactive BACTRIM DS 800-160 MG TAB 1 tab by mouth twice daily 2 BACTRIM DS 800-160 MG TAB 001838 TRIMETHOPRIM-SULFAMETHOXAZOLE Inac tive HYDROCODONE-ACETAMINOPHEN 5-325 MG TABS 1 po q 6hr PRN Pain 2011 HYDROCODONE-ACETAMINOPHEN 5-325 MG TABS 670543 HYDROCODONE-ACETAMINOPHEN Inactive DOXYCYCLINE HYCLATE 100 MG CAPS Take one (1) tablet by mouth twice a day DOXYCYCLINE HYCLATE 100 MG CAPS 5223242 DOXYCYCLINE HYCLATE Inactive PENICILLIN V POTASSIUM 500 MG TAB 1 four times a day 2 PENICILLIN V POTASSIUM 500 MG TAB 399810 PENICILLIN V POTASSIUM Siri ctive PRISTIQ 50 MG [id number] 1 po qd PRISTIQ 50 MG [id number] DESVENLAFAXINE SUCCINATE Inactive TYLENOL/CODEINE #3 300-30 MG TAB 1-2 po q6hr PRN Pain TYLENOL/CODEINE #3 300-30 MG TAB 757183 ACETAMINOPHEN-CODEINE Inact krishna CEPHALEXIN 500 MG TABS Take one by mouth four times daily, morning, noon, early evening and bedtime. CEPHALEXIN 500 MG TABS 687227 CEPHALEXIN Inactive LORTAB 5 5-500 MG TABS 1/2 to 1 tablet by mouth go ry 6 hours as needed for pain LORTAB 5 5-500 MG TABS HYDROCODONE-A CETAMINOPHEN Inactive AMITRIPTYLINE HCL 25 MG TAB 1 tab by mouth daily 60 minutes before bedtime AMITRIPTYLINE HCL 25 MG TAB 013883 AMITRIPTYLINE HCL Inactive AMOXICILLIN 500 MG TABS 2 tabs PO bid x 10 d 7 AMOXICILLIN 500 MG TABS 454392 AMOXICILLIN Inactive IMPLANON 68 MG IMPL IMPLANTED IN LEFT ARM IMPLANON 68 MG IMPL ETONOGESTREL Inactive HYDROCODONE-ACETAMINOPHEN 5-325 MG TABS 1 PO tid PRN pain 5 HYDROCODONE-ACETAMINOPHEN 5-325 MG TABS 563206 HYDROCODONE-ACETAMIN OPHEN Inactive BACTRIM DS 800-160 MG TAB 1 tab by mouth twice daily 2 BACTRIM DS 800-160 MG TAB [id number] TRIMETHOPRIM-SULFAMETHOXAZOLE Inac tive CEPHALEXIN 500 MG CAPS 1 PO bid x 7 days CEPHALEXIN 500 MG CAPS 448030 CEPHALEXIN Inactive HYDROCODONE-ACETAMINOPHEN 5-325 MG TABS 1 tab by mouth every 6 hours as needed HYDROCODONE-ACETAMINOPHEN 5-325 MG TABS 038090 HYDROCODONE-ACETAMINOPHEN Inactive PROMETHAZINE-CODEINE 6.25-10 MG/5ML SYRP 1 tsp every 6 hrs prn c ough PROMETHAZINE-CODEINE 6.25-10 MG/5ML SYRP 241502 PROMETH AZINE-CODEINE Inactive IBUPROFEN 800 MG TAB 1 pill three times daily as needed for pain IBUPROFEN 800 MG TAB 497522 IBUPROFEN Inactive KEFLEX 500 MG CAP 1 tab po tid KEFLEX 500 MG CAP 823846 CEPHALEXIN Inactive HYDROCODONE-ACETAMINOPHEN 7.5-325 MG TABS 1 four times a day as needed for pain HYDROCODONE-ACETAMINOPHEN 7.5-325 MG TABS 719090 HYDROCODONE-ACETAMINOPHEN Inactive BACTRIM DS 800-160 MG TABS by mouth twice a day 11/05 BACTRIM DS 800-160 MG TABS 19820910 SULFAMETHOXAZOLE-TRIMETHOPRIM Inactive IBUPROFEN 800 MG TABS 1 tid prn IBUPROFEN 800 MG TABS 940639 IBUPROFEN Inactive ENDOCET 10-325 MG TABS 1 q 6 hr prn ENDOC ET 10-325 MG TABS 2663914 OXYCODONE-ACETAMINOPHEN Inactive HYDROCODONE-ACETAMINOPHEN 7.5-325 MG TABS 1 by mouth e very 6 hours as needed for pain HYDROCODONE-ACETAMINOPHEN 7.5-325 MG TABS 042689 HYDROCODONE-ACETAMINOPHEN Inactive PERCOCET 7.5-325 MG TABS 1 PO q 8 hrs PRN pain PERCOCET 7.5-325 MG TABS 2322731 OXYCODONE-ACETAMINOPHEN Inactive LIDODERM 5 % PTCH One patch to painful area [place] N. On for 12 hrs, off for 12 hrs. LIDODERM 5 % PTCH 4104323 LIDOCAINE Inactiv e PERCOCET 7.5-325 MG TABS 1 PO tid PRN pain PERCOCET 7.5- 325 MG TABS 8598493 OXYCODONE-ACETAMINOPHEN Inactive MOBIC 15 MG TABS 1 tab daily MOBIC 15 MG TABS 15 2695 MELOXICAM Inactive CYCLOBENZAPRINE HCL 10 MG TABS 1/2 - 1 tab PO tid PRN back p ain, muscle spasm CYCLOBENZAPRINE HCL 10 MG TABS 516697 CYCLOBENZA JOSEPH HCL Inactive LORATADINE 10 MG TABS 1 tablet by mouth daily LORATADINE 10 MG TABS 047187 LORATADINE Inactive HYDROCODONE-ACETAMINOPHEN 10-325 MG TABS 1 by mouth ev chaka 8 hours as needed for pain HYDROCODONE-ACETAMINOPHEN 10-325 MG TABS 763160 HYDROCODONE-ACETAMINOPHEN Inactive LC-5 LIDOCAINE 5 % CREA apply 1 time daily to affected area 2013 LC-5 LIDOCAINE 5 % CREA 5366159 LIDOCAINE (ANORECTAL) In active PERCOCET 5-325 MG TAB 1 every 6 hours as needed PERCOCET 5-325 MG TAB 7929399 OXYCODONE-ACETAMINOPHEN Inactive KEFLEX 500 MG CAP 1 po qid KEFLEX 500 MG CAP 30 9114 CEPHALEXIN Inactive PROAIR HFA 108 (90 BASE) MCG/ACT AERS 2 puff q 4-6 hrs PRN 01/24 PROAIR HFA 108 (90 BASE) MCG/ACT AERS ALBUTEROL SULFATE Inactive PERCOCET 10-325 MG ORAL TABS 1 every 4 hours as needed PERCOCET 10-325 MG ORAL TABS 6163619 OXYCODONE-ACETAMINOPHEN Inactiv e EMLA 2.5-2.5 % EXT CREA apply to skin lesion q 6 hours, prn 2014 EMLA 2.5-2.5 % EXT CREA 607302 LIDOCAINE-PRILOCAINE Siri ctive PERCOCET 10-325 MG TABS 1 tab by mouth every 6 hours , use sparingly for severe pain PERCOCET 10-325 MG TABS 9377888 OXYCODONE-ACETAMINOPHEN Inactive GLUCOPHAGE 500 MG ORAL TABS one by mouth 3 times a day GLUCOPHAGE 500 MG ORAL TABS 058943 METFORMIN HCL Inactive HYDROCODONE-ACETAMINOPHEN 5-325 MG TABS 1 po q6hr PRN pain 06/30 HYDROCODONE-ACETAMINOPHEN 5-325 MG TABS 120499 HYDROCOD ONE-ACETAMINOPHEN Inactive PERCOCET 5-325 MG TAB 1 tab po q 6 -8 hours, prn for severe pain PERCOCET 5-325 MG TAB 4098358 OXYCODONE-ACETAMINOPHEN In active PERCOCET 5-325 MG ORAL TABS 1 every 6 hours as needed PERCOCET 5-325 MG ORAL TABS 0384759 OXYCODONE-ACETAMINOPHEN Inactive DICLOFENAC SODIUM 50 MG TBEC 1 tablet by mouth four times da tom PRN Pain DICLOFENAC SODIUM 50 MG TBEC 257797 DICLOFENAC S ODIUM Inactive AUGMENTIN 500-125 MG ORAL TABS 1 by mouth twice a day AUGMENTIN 500-125 MG ORAL TABS 403311 AMOXICILLIN-POT CLAVULANATE I nactive HYDROCODONE-ACETAMINOPHEN 5-325 MG TABS 1 po q6hr PRN Pain 03/09 HYDROCODONE-ACETAMINOPHEN 5-325 MG TABS [id number] HYDROCOD ONE-ACETAMINOPHEN Inactive CYCLOBENZAPRINE HCL 10 MG TABS 1 tablet by mouth three times daily as needed for muscle spasm/pain CYCLOBENZAPRINE HCL 10 MG TABS [id number] CYCLOBENZAPRINE HCL Inactive SPRINTEC 28 0.25-35 MG-MCG TABS 1 pill by mouth daily for bi rth control SPRINTEC 28 0.25-35 MG-MCG TABS [id number] NORGESTIMATE-ETH ESTRADIOL Inactive PERCOCET 5-325 MG TAB 1 tab po q 6 hours, prn severe pain PERCOCET 5-325 MG TAB [id number] OXYCODONE-ACETAMINOPHEN Inactive IBUPROFEN 600 MG ORAL TABS 1 by mouth twice a day 2014 IBUPROFEN 600 MG ORAL TABS 156403 IBUPROFEN Inactive CYMBALTA 30 MG CPEP 1 cap by mouth daily CYMBALTA 30 MG CPEP [id number] DULOXETINE HCL Inactive HYDROCODONE-ACETAMINOPHEN 5-325 MG TABS 1 po q6hr PRN Pain 04/09 HYDROCODONE-ACETAMINOPHEN 5-325 MG TABS [id number] HYDROCOD ONE-ACETAMINOPHEN Inactive TRAZODONE HCL 100 MG TAB 0.5 to 1 po qHS PRN Insomnia TRAZODONE HCL 100 MG TAB 533692 TRAZODONE HCL Inactive ALPRAZOLAM 0.5 MG TABS 1 po BID PRN Anxiety ALPRAZOLAM 0.5 MG TABS 685702 ALPRAZOLAM Inactive [id number] 50-325-40 MG ORAL CAPS 1-2 po TID KS N Headache [id number] 50-325-40 MG ORAL CAPS 2 30753 [id number]-[id number] Inactive HYDROCODONE-ACETAMINOPHEN 5-325 MG TABS 1 po TID PRN Pain 9 HYDROCODONE-ACETAMINOPHEN 5-325 MG TABS [id number] HYDROCODONE-ACETAMIN OPHEN Inactive PERCOCET 10-325 MG TABS 1 tablet every 8 hours as needed for antonia n PERCOCET 10-325 MG TABS [id number] OXYCODONE-ACETAMINOPHEN Inactive ONDANSETRON 4 MG TBDP 1 q4h PRN nausea ON DANSETRON 4 MG TBDP 519570 ONDANSETRON Inactive VIIBRYD 10 & 20 & 40 MG KIT 1 po qd as directed 07/24 VIIBRYD 10 & 20 & 40 MG KIT VILAZODONE HCL Inactive DICLOFENAC SODIUM 50 MG TBEC 1 tablet by mouth four times da tom PRN Pain DICLOFENAC SODIUM 50 MG TBEC [id number] DICLOFENAC S ODIUM Inactive PERCOCET 10-325 MG ORAL TABS one every 6 hours prn pain PERCOCET 10-325 MG ORAL TABS [id number] OXYCODONE-ACETAMINOPHEN Inactiv e PERCOCET 10-325 MG ORAL TABS take 1 tab by mouth q 4hours as needed for pain PERCOCET 10-325 MG ORAL TABS [id number] OXYCODONE-ACETAMINOPHEN Inactive FLONASE ALLERGY RELIEF 50 MCG/ACT NASAL SUSP One spray in each nostril twice a day. FLONASE ALLERGY RELIEF 50 MCG/ACT NASAL S JAIL [id number] FLUTICASONE PROPIONATE Inactive AUGMENTIN 875-125 MG TAB 1 tab by mouth twice daily with food 20 23/05/16 AUGMENTIN 875-125 MG TAB [id number] AMOXICILLIN-POT [place]A [place] Inactive HYDROCODONE-ACETAMINOPHEN 5-325 MG TABS 1 tab by mouth every 6 hours as needed for pain HYDROCODONE-ACETAMINOPHEN 5-325 MG TABS 8 23099 HYDROCODONE-ACETAMINOPHEN Inactive PERCOCET 10-325 MG TABS 1 tablet every 8 hours as needed for antonia n PERCOCET 10-325 MG TABS [id number] OXYCODONE-ACETAMINOPHEN Inactive LC-4 LIDOCAINE 4 % EXT CREA apply q 6 hours, prn 08/03 LC-4 LIDOCAINE 4 % EXT CREA [id number] LIDOCAINE Inactive AMOXICILLIN 875 MG TABS 1 tab by mouth twice daily 201 07/18/07 AMOXICILLIN 875 MG TABS 833803 AMOXICILLIN Inactive KEFLEX 500 MG CAP 1 po tid x 10 days KEFLEX 500 MG CAP 610992 CEPHALEXIN Inactive AMOXICILLIN 875 MG TABS 1 tab by mouth twice daily 201 07/19/27 AMOXICILLIN 875 MG TABS 392392 AMOXICILLIN Inactive AMOXICILLIN 875 MG TABS 1 tab by mouth twice daily 201 08/09/13 AMOXICILLIN 875 MG TABS 233063 AMOXICILLIN Inactive CIPRO 500 MG TAB 1 tablet by mouth twice daily CIPRO 500 MG TAB 238395 CIPROFLOXACIN HCL Inactive BACTRIM DS 800-160 MG TAB 1 tab by mouth twice daily 2 BACTRIM DS 800-160 MG TAB 605538 TRIMETHOPRIM-SULFAMETHOXAZOLE Inac tive LEVAQUIN 500 MG TABS 1 PO q day x 7 days LEVAQUIN 500 MG TABS 759295 LEVOFLOXACIN Inactive CLINDAMYCIN HCL 300 MG CAPS 1 po QID x 7 days CLINDAMYCIN HCL 300 MG CAPS 699831 CLINDAMYCIN HCL Inactive AUGMENTIN 875-125 MG TAB 1 tab by mouth twice daily with food 20 22/05/07 AUGMENTIN 875-125 MG TAB 954075 AMOXICILLIN-POT [place] Inactive DIFLUCAN 150 MG TAB 1 qODay x 2 doses DIFLUCAN 150 MG TAB 809731 FLUCONAZOLE Inactive PREDNISONE 20 MG TAB 2 tabs daily for 3 days, 1 t ab daily for 3 days, 1/2 tab daily for 2 days PREDNISONE 20 MG TAB 208168 PREDNISON E Inactive AUGMENTIN 875-125 MG TAB 1 tab by mouth twice daily with food 20 21/10/13 AUGMENTIN 875-125 MG TAB 282266 AMOXICILLIN-POT [place] Inactive HYDROCODONE-ACETAMINOPHEN 5-325 MG TABS 1 tab by mouth every 6 hours as needed PRN Pain HYDROCODONE-ACETAMINOPHEN 5-325 MG TABS 8 14185 HYDROCODONE-ACETAMINOPHEN Inactive PROMETHAZINE HCL 25 MG TABS 1 four times a day as needed for nausea/vomiting PROMETHAZINE HCL 25 MG TABS 785589 PROMETHAZINE HCL Inactive Advance Directives Directive Description Start Date PERMISSION TO SHARE Immunizations Vaccine Administration Date Value Standard Alf cription Seasonal influenza vaccine, injectable, containing preservative, for > 3 years old (Afluria, FluLaval, Fluzone, Fluvirin, Fluarix, Agriflu(>= 18 yo)) Fluzone (>3 yrs.) [[id number]] Influenza, seasonal, inject able Seasonal influenza vaccine, injectable, preservative free, for > 3 years old (Afluria, FluLaval, Fluzone, Fluvirin, Fluarix, Agriflu(>= 18 yo)) Fluzone preservative free (>3 yrs.) [[id number]] Influenza, seasonal, injectable, preservative free Seasonal influenza vaccine, injectable, containing preservative, for > 3 years old (Afluria, FluLaval, Fluzone, Fluvirin, Fluarix, Agriflu(>= 18 yo)) Fluzone (>3 yrs.) [[id number]] Influenza, seasonal, inject able Seasonal influenza vaccine, injectable, containing preservative, for > 3 years old (Afluria, FluLaval, Fluzone, Fluvirin, Fluarix, Agriflu(>= 18 yo)) Fluzone (>3 yrs.) [[id number]] Influenza, seasonal, inject able dT (Diphtheria and [...] Panel - Chemistry sodium, serum 142 mmol/L [phone]/05/12 potassium, serum 4.8 mmol/L 3.5-5.2 chloride, serum [...] Panel - Chemistry cholesterol, serum 165 mg/dL 282-107 6065/05/12 triglyceride, serum, fasting 524 mg/dL 30-200 HDL cholesterol, serum 24 mg/dL 32-96 cholesterol, serum 181 mg/dL 313-605 1099/09/01 triglyceride, serum, fasting 341 mg/dL 30-200 HDL [...] negative Encounters Code Encounter Date Provider Facility CPT-23643 Level 3 Est. Patient 05:31:41 APPEALS REFEREE Kalpesh goins MD [facility] CPT-45892 Level 3 Est. Patient 11:22:02 APPEALS REFEREE Hira muniz [facility] [place] [facility] [place] CPT-08710 Level 3 Est. Patient 21:00:18 APPEALS REFEREE Rajni danielson [facility] CPT-53229 Level 3 Est. Patient 14:15:00 APPEALS REFEREE Kalpesh goins MD [facility] CPT-29900 Level 2 Est. Patient 19:57:52 APPEALS REFEREE Rajni danielson [facility] CPT-00030 Level 3 Est. Patient 16:58:40 APPEALS REFEREE Bj funes MD [facility] CPT-79531 Level 3 Est. Patient 08:51:33 CDT Kalpesh goins MD [facility] CPT-16692 Level 4 Est. Patient 14:14:53 CDT Abdirahman Rios MD [facility] CPT-55340 Level 3 Est. Patient 15:47:40 CDT Kalpesh goins MD [facility]-30928 Level 3 Est. Patient 10:57:26 CDT Abdirahman Rios MD [facility] CPT-90481 Level 3 Est. Patient 14:29:53 CDT Abhinav Galvan MD [facility]-38668 Level 2 Est. Patient 16:33:01 CDT Kalpesh goins MD [facility]-38504 Level 4 Est. Patient 16:44:56 CDT Abdirahman Rios MD [facility] CPT-66652 Level 2 Est. Patient 07:49:32 CDT Kalpesh goins MD [facility] CPT-96304 Level 3 New Patient 15:47:11 APPEALS REFEREE Bj huber MD [facility]-43526 Level 4 Est. Patient 14:37:38 APPEALS REFEREE Abdirahman Rios MD [facility] CPT-39255 Level 2 Est. Patient 13:32:17 APPEALS REFEREE Kalpesh goins MD [facility]-81682 Level 3 Est. Patient 17:32:57 APPEALS REFEREE Edilberto tiwari [facility] CPT-49963 Level 3 Est. Patient 17:22:33 APPEALS REFEREE Edilberto tiwari [facility] CPT-58775 Level 2 Est. Patient 16:57:09 APPEALS REFEREE Kalpesh goins MD [facility]-53523 Level 3 Est. Patient 14:03:08 APPEALS REFEREE Abdirahman Rios MD [facility] CPT-27523 Level 3 Est. Patient 18:12:34 CDT Shola Wright [facility] CPT-30026 Level 3 Est. Patient 19:34:46 CDT Shola Wright [facility] CPT-30676 Level 3 Est. Patient 14:19:37 CDT Abdirahman Rios MD [facility] CPT-56295 Level 3 Est. Patient 14:11:58 CDT Kalpesh goins MD [facility] CPT-24743 Level 3 Est. Patient 16:50:00 CDT Michelle BRADFORDP [facility] CPT-65450 Level 3 Est. Patient 17:11:32 APPEALS REFEREE Brandie bates MD PhD [facility] CPT-85978 Level 3 Est. Patient 16:31:47 APPEALS REFEREE Shola Wright [facility] CPT-03788 Level 3 Est. Patient 17:51:10 APPEALS REFEREE Abhinav Galvan MD [facility] CPT-67697 Level 4 Est. Patient 12:54:56 APPEALS REFEREE Kalpesh goins MD [facility]-01331 Level 4 Est. Patient 12:53:56 APPEALS REFEREE Kalpesh goins MD [facility] CPT-87882 Level 3 Est. Patient 17:56:58 CDT Shola Wright [facility] CPT-95895 Level 3 Est. Patient 14:26:20 CDT Janak butcher [facility] CPT-22254 Level 3 Est. Patient 09:38:41 CDT Shola Wright [facility] CPT-57599 Level 3 Est. Patient 14:45:26 CDT Edilberto tiwari [facility] CPT-45528 Level 3 Est. Patient 10:51:33 CDT Hira muniz [facility] [place] [facility] [place] CPT-05235 Level 3 Est. Patient 11:57:55 APPEALS REFEREE Shola Wright [facility] CPT-33644 Level 3 Est. Patient 09:53:33 APPEALS REFEREE Edilberto tiwari [facility] CPT-62674 Level 3 Est. Patient 14:42:54 APPEALS REFEREE Abhinav Galvan MD [facility] CPT-27917 Level 3 Est. Patient 15:10:02 CDT Janak MCGILL [facility] CPT-57682 Level 3 Est. Patient 15:20:20 CDT Theo dennis MD [facility] CPT-66151 Level 2 Est. Patient 14:08:57 CDT Kalpesh goins MD [facility] CPT-05775 Level 3 Est. Patient 13:56:19 CDT Abdirahman Rios MD [facility] CPT-53197 Level 3 Est. Patient 13:59:37 CDT Abdirahman Rios MD [facility] CPT-78573 Level 2 Est. Patient 14:44:59 CDT Kalpesh goins MD [facility] CPT-63184 Level 3 Est. Patient 06:06:23 CDT Edilberto tiwari DO [facility] CPT-59678 Level 3 Est. Patient 15:23:54 CDT Abdirahman Rios MD [facility] CPT-94647 Level 3 Est. Patient 15:43:49 CDT Abdirahman Rios MD [facility] CPT-98760 Level 3 Est. Patient 12:46:47 APPEALS REFEREE Abdirahman Rios MD [facility] CPT-10643 Level 3 Est. Patient 08:13:35 APPEALS REFEREE Abdirahman Rios MD [facility] CPT-50901 Level 2 Est. Patient 09:36:42 APPEALS REFEREE Abdirahman Rios MD [facility] CPT-67291 Level 3 Est. Patient 10:56:43 CDT Abdirahman Rios MD [facility] CPT-98599 Level 3 Est. Patient 18:24:52 CDT Abdirahman Rios MD [facility] CPT-96484 Level 3 Est. Patient 13:27:22 CDT Abdirahman Rios MD [facility] Procedures Code Procedure Name Date Entry Date Standard Desc ription CPT-05143 Postop F/U Visit 14:08:43 APPEALS REFEREE CPT-78092 Postop F/U Visit 15:18:16 APPEALS REFEREE CPT-95497 Postop F/U Visit 15:03:49 APPEALS REFEREE CPT-91406 Postop F/U Visit 14:45:23 APPEALS REFEREE CPT-53657 Postop F/U Visit 14:11:03 APPEALS REFEREE CPT-03401 Postop F/U Visit 18:21:21 APPEALS REFEREE CPT-05666 Postop F/U Visit 15:57:12 APPEALS REFEREE CPT-45484 Bladder Instillation 16:58:41 APPEALS REFEREE 6 CPT-40141 Fluzone Quadrivalent Intramuscular Suspe nsion 0.5 ML 15:20:56 APPEALS REFEREE CPT-48520 Immunization Single Admin 15:20:56 APPEALS REFEREE 2014 CPT-32211 Excis pilonidal cyst simple 08:51:34 CDT 20 22/04/20 CPT-92854 Venipuncture Draw Fee 14:27:29 CDT CPT-90628 Postop F/U Visit 15:27:43 CDT CPT-06075 Postop F/U Visit 14:40:59 CDT CPT-10868 Postop F/U Visit 15:02:46 CDT CPT-18940 Postop F/U Visit 11:29:00 APPEALS REFEREE CPT-J0696 Rocephin 1000 mg (Ceftriaxone) 17:22:33 APPEALS REFEREE CPT-17689 Postop F/U Visit 18:41:07 APPEALS REFEREE CPT-32180 Postop F/U Visit 08:19:08 APPEALS REFEREE CPT-80931 Immunization Single Admin 16:41:53 CDT 2013 CPT-87534 Fluzone Quadrivalent Intramuscular Suspe nsion 0.5 ML 16:41:53 CDT CPT-OV Office Visit 16:39:18 CDT CPT-OV Office Visit 16:16:36 CDT CPT-OV Office Visit 15:34:48 CDT CPT-34319 Postop F/U Visit 14:50:12 CDT CPT-92341 Postop F/U Visit 14:41:10 CDT CPT-48769 Venipuncture Draw Fee 11:38:04 APPEALS REFEREE CPT-11884 Postop F/U Visit 19:02:59 APPEALS REFEREE CPT-19411 Postop F/U Visit 12:04:54 APPEALS REFEREE CPT-08397 Administration single or combination vac cine inc oral 15:56:43 CDT CPT-33366 Influenza split virus > age 3 15:56:43 CDT CPT-68935 Hand comp min 3V 14:25:19 CDT CPT-51951 Postop F/U Visit 21:40:51 CDT CPT-55701 Postop F/U Visit 10:58:43 CDT CPT-35646 Administration single or combination vac cine inc oral 12:33:54 APPEALS REFEREE CPT-22898 Influenza Preservative Free split virus >age 3 12:33:54 APPEALS REFEREE CPT-62317 Administration single or combination vac cine inc oral 09:30:51 CDT CPT-45115 Influenza split virus > age 3 09:30:51 CDT CPT-09552 Postop F/U Visit 15:14:53 CDT CPT-22282 Postop F/U Visit 13:50:14 CDT CPT-92989 Postop F/U Visit 13:34:52 CDT CPT-OV Office Visit 16:55:03 CDT CPT-55237 Guy of cervix w bx ECC 13:32:50 CDT 10/19 CPT-J1885 Toradol 60 mg (Ketorolac) 15:31:59 CDT 2011 CPT-J1885 Toradol 60 mg (Ketorolac) 15:23:54 CDT 2011 CPT-98745 Visit 11:34:37 APPEALS REFEREE CPT-83060 Visit 10:52:39 APPEALS REFEREE CPT-10671 Visit 10:12:02 APPEALS REFEREE CPT-62763 Visit 11:22:43 APPEALS REFEREE CPT-37273 Visit 11:24:12 APPEALS REFEREE CPT-38239 Visit 10:47:05 APPEALS REFEREE CPT-OV Office Visit 10:26:16 APPEALS REFEREE CPT-OV Office Visit 15:34:31 APPEALS REFEREE CPT-56281 Visit 10:42:08 APPEALS REFEREE CPT-76682 Visit 10:52:45 APPEALS REFEREE CPT-000 Give Appropriate Flu Vaccine 16:56:41 CDT 2 CPT-45297 Administration single or combination vac cine inc oral 10:33:21 CDT CPT-97350 Influenza split virus > age 3 10:33:21 CDT CPT-48565 Visit 13:23:09 CDT CPT-50995 Visit 18:24:52 CDT CPT-46458 Sono OB comp > 14 weeks 12:07:49 CDT 04/07
--- OUTSIDE RECORDS SUMMARY | 2020-01-18 16:02 | XMS REPORT | Clinical Summary ---
Author Author Admin, Jeri Rashid Organization [facility] Address Unknown Phone Unavailable Allergies, Adverse Reactions, Alerts Allergy Name Reaction Description Start Date Severity Status Pr ovider BACTRIM Critical Active Kalpseh Dong MD ZITHROMAX rash all over Critical [...] Backache, unspecified , NORMAL V22.2 Resolved Abdirahman iRos MD state, incidental UNSPEC LOCAL INFECTION SKIN&SUBCUTANEOUS [...] subcutaneous tis braden, NEC V58.77 Resolved Good Jluian MD After care following surgery of the [...] NEC Abscess, perirectal 566 Active Hira roman [employer] Abscess of anal and rectal regions , [...] ICD-V58.77 Inactive Abdirahman Rios MD Impetigo ICD-684 Jose M Rios MD 08/24 Medication List Medication Instructions Start Date Stop Date Generic Name NDC Status Provider Patient Instruction [id number] 50-325-40 MG ORAL CAPS 1-2 po TID DC N Headache [id number] Active Abdirahman Rios MD Active AUGMENTIN 875-125 MG TAB 1 tab by mouth twice daily with food 20 21/10/13 AMOXICILLIN-POT CLAVULANATE 88788721217 No Longer Active Ursula Moser APRN Active PERCOCET 10-325 MG ORAL TABS 1 every 4 hours as needed OXYCODONE-ACETAMINOPHEN 05964833318 Active Hira Moser APRN Active PROAIR HFA 108 (90 BASE) MCG/ACT AERS 2 puff q 4-6 hrs PRN 01/24 ALBUTEROL SULFATE 84537527530 No Longer Active Kalpesh Dong MD Active ALPRAZOLAM 0.5 MG TABS 1 po BID PRN Anxiety ALPRA ZOLAM 17997686889 Active Abdirahman Rios MD Active EMLA 2.5-2.5 % EXT CREA apply to skin lesion q 6 hours, prn LIDOCAINE-PRILOCAINE 72196112663 Active Hira Moser APRN Active CYCLOBENZAPRINE HCL 10 MG TABS 1 tablet by mouth three times daily as needed for muscle spasm/pain CYCLOBENZAPRINE HCL 30105654760 Active Abdirahman Rios MD Active PREDNISONE 20 MG TAB 2 tabs daily for 3 days, 1 t ab daily for 3 days, 1/2 tab daily for 2 days PREDNISONE 36700652951 No Longer Active Abdirahman Rios MD Active KEFLEX 500 MG CAP 1 po qid CEPHALEXIN 316558872 20 No Longer Active Kalpesh Dong MD Active PERCOCET 5-325 MG TAB 1 every 6 hours as needed OXYCODONE-ACETAMINOPHEN 41279198513 No Longer Active Shola MCGILL Active LC-5 LIDOCAINE 5 % CREA apply 1 time daily to affected area 2013 LIDOCAINE (ANORECTAL) 27992855458 No Longer Active Hira muniz APRN Active HYDROCODONE-ACETAMINOPHEN 5-325 MG TABS 2 tablets by m out every 8 hours as needed for pain HYDROCODONE-ACETAMINOPHEN 74185509463 Acti ve Rajni Craigkum [employer] Active HYDROCODONE-ACETAMINOPHEN 10-325 MG TABS 1 by mouth ev chaka 8 hours as needed for pain HYDROCODONE-ACETAMINOPHEN 22851333895 No Longer Active Jillina Frazell [employer] Active LORATADINE 10 MG TABS 1 tablet by mouth daily L ORATADINE 79782461703 No Longer Active Jillina Frazell [employer] Active DIFLUCAN 150 MG TAB 1 qODay x 2 doses FLUCONAZO LE 15485241172 No Longer Active Jillina Frazell [employer] Active CYCLOBENZAPRINE HCL 10 MG TABS 1/2 - 1 tab PO tid PRN back p ain, muscle spasm CYCLOBENZAPRINE HCL 48998760601 No Longer Active Karen herson Frazell [employer] Active AUGMENTIN 875-125 MG TAB 1 tab by mouth twice daily with food 20 22/05/07 AMOXICILLIN-POT CLAVULANATE 55068889526 No Longer Active Loida Rios MD Active MOBIC 15 MG TABS 1 tab daily MELOXICAM 330689840 14 No Longer Active Abdirahman Rios MD Active PERCOCET 7.5-325 MG TABS 1 PO tid PRN pain OXYCODONE-ACETAMINOPHEN 62887832742 No Longer Active Abdirahman Rios MD Active LIDODERM 5 % PTCH One patch to painful area DC N. On for 12 hrs, off for 12 hrs. LIDOCAINE 39059697200 No Longer Active Abdirahman Rios MD Active PERCOCET 7.5-325 MG TABS 1 PO q 8 hrs PRN pain OXYCODONE-ACETAMINOPHEN 33019688727 No Longer Active Shola MCGILL Active HYDROCODONE-ACETAMINOPHEN 7.5-325 MG TABS 1 by mouth e very 6 hours as needed for pain HYDROCODONE-ACETAMINOPHEN 62921777336 No Longer Active Good Julian MD Active CLINDAMYCIN HCL 300 MG CAPS 1 po QID x 7 days CLINDAMYCIN HCL 70603588270 No Longer Active Abdirahman Rios MD Activ e BACTRIM DS 800-160 MG TABS 1 po BID x 7 days 5 SULFAMETHOXAZOLE-TRIMETHOPRIM 50932400663 No Longer Active Abdirahman Rios MD Active ENDOCET 10-325 MG TABS 1 q 6 hr prn OXYCODONE-ACETAMINOPHEN 06532067297 No Longer Active Abdirahman Rios MD Active IBUPROFEN 800 MG TABS 1 tid prn IBUPROFEN 113728 43226 No Longer Active Abdirahman Rios MD Active BACTRIM DS 800-160 MG TABS by mouth twice a day 11/05 SULFAMETHOXAZOLE-TRIMETHOPRIM 77699333219 No Longer Active Good Julian MD Active HYDROCODONE-ACETAMINOPHEN 7.5-325 MG TABS 1 four times a day as needed for pain HYDROCODONE-ACETAMINOPHEN 36771708523 No Longer Activ e Good Julian MD Active KEFLEX 500 MG CAP 1 tab po tid CEPHALEXIN 255228 71212 No Longer Active Hira Moser APRN Active IBUPROFEN 800 MG TAB 1 pill three times daily as needed for pain IBUPROFEN 19226862504 No Longer Active Kalpesh Dong MD Active PROMETHAZINE-CODEINE 6.25-10 MG/5ML SYRP 1 tsp every 6 hrs prn c ough PROMETHAZINE-CODEINE 82823811906 No Longer Active Kalpesh Carr Active HYDROCODONE-ACETAMINOPHEN 5-325 MG TABS 1 tab by mouth every 6 hours as needed HYDROCODONE-ACETAMINOPHEN 08476836963 No Longer Activ e Shola MCGILL Active CEPHALEXIN 500 MG CAPS 1 PO bid x 7 days CEPHAL EXIN 75919142287 No Longer Active Shola MCGILL Active BACTRIM DS 800-160 MG TAB 1 tab by mouth twice daily 2 TRIMETHOPRIM-SULFAMETHOXAZOLE 31929364738 No Longer Active Kalpesh Dong MD Active HYDROCODONE-ACETAMINOPHEN 5-325 MG TABS 1 PO tid PRN pain 5 HYDROCODONE-ACETAMINOPHEN 39870830149 No Longer Active Abhinav Galvan MD Active IMPLANON 68 MG IMPL IMPLANTED IN LEFT ARM ETONO GESTREL 77977653256 No Longer Active Hira Moser APRN Active AMOXICILLIN 500 MG TABS 2 tabs PO bid x 10 d AM OXICILLIN 70774078572 No Longer Active Kalpesh Dong MD Active LEVAQUIN 500 MG TABS 1 PO q day x 7 days LEVOFL OXACIN 31280169198 No Longer Active Shola MCGILL Active AMITRIPTYLINE HCL 25 MG TAB 1 tab by mouth daily 60 minutes before bedtime AMITRIPTYLINE HCL 82382952685 No Longer Active Shola MCGILL Active LORTAB 5 5-500 MG TABS 1/2 to 1 tablet by mouth go ry 6 hours as needed for pain HYDROCODONE-ACETAMINOPHEN 99717292000 No Longer Active Shola MCGILL Active CEPHALEXIN 500 MG TABS Take one by mouth four times daily, morning, noon, early evening and bedtime. CEPHALEXIN 67036286221 No Long er Active Hira Moser APRN Active TYLENOL/CODEINE #3 300-30 MG TAB 1-2 po q6hr PRN Pain ACETAMINOPHEN-CODEINE 18181075818 No Longer Active Edilberto Marino DO Active PRISTIQ 50 MG AZ57T-HIN 1 po qd DESVENLAFAXI NE SUCCINATE 37536684068 No Longer Active Edilberto Marino DO Active PENICILLIN V POTASSIUM 500 MG TAB 1 four times a day 2 PENICILLIN V POTASSIUM 62521024040 No Longer Active Edilberto Mraino DO Active DOXYCYCLINE HYCLATE 100 MG CAPS Take one (1) tablet by mouth twice a day DOXYCYCLINE HYCLATE 07084187520 No Longer Active Ronnie Galvan MD Active HYDROCODONE-ACETAMINOPHEN 5-325 MG TABS 1 po q 6hr PRN Pain 2011 HYDROCODONE-ACETAMINOPHEN 40496859663 No Longer Active Rosari joan Perez RN Active BACTRIM DS 800-160 MG TAB 1 tab by mouth twice daily 2 TRIMETHOPRIM-SULFAMETHOXAZOLE 39681982663 No Longer Active Kalpesh Dong MD Active LORTAB 5 5-500 MG TABS 1/2 to 1 tablet by mouth go ry 4 hours as needed for pain HYDROCODONE-ACETAMINOPHEN 84254277010 No Longer Active Kalpesh Dong MD Active GENERESS FE 0.8-25 MG-MCG CHEW Take one by mouth daily NORETHIN-ETH ESTRADIOL-FE 80061657797 No Longer Active Kalpesh Dong MD Active HYDROCODONE-ACETAMINOPHEN 7.5-500 MG TABS 1-2 every 4 hours as needed HYDROCODONE-ACETAMINOPHEN 19657707804 No Longer Activ e Kalpesh Dong MD Active FERROUS SULFATE 325 (65 FE) MG TABS 1 tablet by mouth twice yung y FERROUS SULFATE 57794375735 No Longer Active Kalpesh Dong MD Active IBUPROFEN 600 MG TAB 1 po q6-8hr PRN IBUPROFEN 85937282212 No Longer Active Kalpesh Dong MD Active SPIRONOLACTONE 25 MG TAB 1 tablet by mouth daily 01/22 SPIRONOLACTONE 32647922331 No Longer Active Kalpesh Dong MD Acti ve HYDROCODONE-ACETAMINOPHEN 7.5-325 MG TABS 1 po QID PRN Pain 2011 HYDROCODONE-ACETAMINOPHEN 14351115750 No Longer Active Kalpesh Dong MD Active CLINDAMYCIN HCL 300 MG CAPS 1 po q6hr x 7 days CLINDAMYCIN HCL 74982166045 No Longer Active Edilberto Marino DO Active PREDNISONE 20 MG TAB 2 tabs daily for 4 days, 1 t ab daily for 4 days, 1/2 tab daily for 4 days PREDNISONE 73512458637 No Longer Active Edilberto Marino DO Active PERCOCET 5-325 MG TABS 1 tablet by mouth every 6 hours as ne eded for pain OXYCODONE-ACETAMINOPHEN 32130490502 No Longer Active Abdirahman Rios MD Active VITAMINS TABS Take one by mouth daily MV & MIN W/FE-FA TABS 29108727910 No Longer Active Abdirahman Rios MD Active LUIS 3-0.02 MG TABS 1 tablet by mouth daily as directed DROSPIRENONE-ETHINYL ESTRADIOL 92365848301 No Longer Active Abdirahman Rios MD Active LORATADINE 10 MG TABS 1 tablet by mouth daily L ORATADINE 55905614871 No Longer Active Kalpesh Dong MD Active HYDROCODONE-ACETAMINOPHEN 5-325 MG TABS 1 po q 6hr PRN Pain 2010 HYDROCODONE-ACETAMINOPHEN 89617517365 No Longer Active Edilberto Marino DO Active BACTRIM DS 800-160 MG TAB 1 tab by mouth twice daily 2 TRIMETHOPRIM-SULFAMETHOXAZOLE 79841805325 No Longer Active Abdirahman Rios MD Active 28-0.8 MG TABS Take one by mouth daily 09/20 VIT-FE FUMARATE-FA 02031575859 No Longer Active Abdirahman Rios MD Active CIPRO 500 MG TAB 1 tablet by mouth twice daily CIPROFLOXACIN HCL 87031119826 No Longer Active Abdirahman Rios MD Active BENADRYL 25 MG CAP 1 po q8hr PRN Congestion DIPHENHYDRAMINE HCL 44787762736 No Longer Active Abdirahman Rios MD Active ZOLOFT 50 MG TAB 1 po qd SERTRALINE HCL 232431 65105 No Longer Active Abdirahman Rios MD Active AMOXICILLIN 875 MG TABS 1 tab by mouth twice daily 201 08/09/13 AMOXICILLIN 36228377891 No Longer Active Abdirahman Rios MD Activ e AMOXICILLIN 875 MG TABS 1 tab by mouth twice daily 201 07/19/27 AMOXICILLIN 58428890314 No Longer Active Abdirahman Rios MD Activ e BACTRIM DS 800-160 MG TAB 2 tab by mouth twice daily 2 TRIMETHOPRIM-SULFAMETHOXAZOLE 58551270495 No Longer Active Abdirahman Rios MD Active KEFLEX 500 MG CAP 1 po tid x 10 days CEPHALEXIN 45865811214 No Longer Active Abdirahman Rios MD Active AMOXICILLIN 875 MG TABS 1 tab by mouth twice daily 201 07/18/07 AMOXICILLIN 52856658355 No Longer Active Abdirahman Rios MD Activ e BACTRIM DS 800-160 MG TAB 2 tab by mouth twice daily 2 BACTRIM DS 800-160 MG TAB TRIMETHOPRIM-SULFAMETHOXAZOLE Inactive ZOLOFT 50 MG TAB 1 po qd ZOLOFT 50 MG TAB 3129 41 SERTRALINE HCL Inactive BENADRYL 25 MG CAP 1 po q8hr PRN Congestion BENADRYL 25 MG CAP 8920699 DIPHENHYDRAMINE HCL Inactive 28-0.8 MG TABS Take one by mouth daily 09/20 28-0.8 MG TABS VIT-FE FUMARATE-FA Inactive HYDROCODONE-ACETAMINOPHEN 5-325 MG TABS 1 po q 6hr PRN Pain 2010 HYDROCODONE-ACETAMINOPHEN 5-325 MG TABS 222909 HYDROCODONE-ACETAMINOPHEN Inactive LORATADINE 10 MG TABS 1 tablet by mouth daily LORATADINE 10 MG TABS 877032 LORATADINE Inactive LUIS 3-0.02 MG TABS 1 tablet by mouth daily as directed LUIS 3-0.02 MG TABS DROSPIRENONE-ETHINYL ESTRADIOL Inactive VITAMINS TABS Take one by mouth daily VITAMINS TABS MV & MIN W/FE-FA TABS Inactive PERCOCET 5-325 MG TABS 1 tablet by mouth every 6 hours as ne eded for pain PERCOCET 5-325 MG TABS 2587001 OXYCODONE-ACETAMIN OPHEN Inactive PREDNISONE 20 MG TAB 2 tabs daily for 4 days, 1 t ab daily for 4 days, 1/2 tab daily for 4 days PREDNISONE 20 MG TAB 492750 PREDNISON E Inactive CLINDAMYCIN HCL 300 MG CAPS 1 po q6hr x 7 days CLINDAMYCIN HCL 300 MG CAPS 613715 CLINDAMYCIN HCL Inactive HYDROCODONE-ACETAMINOPHEN 7.5-325 MG TABS 1 po QID PRN Pain 2011 HYDROCODONE-ACETAMINOPHEN 7.5-325 MG TABS 603875 HYDROCODONE-ACETAMINOPHEN Inactive SPIRONOLACTONE 25 MG TAB 1 tablet by mouth daily 01/22 SPIRONOLACTONE 25 MG TAB 835351 SPIRONOLACTONE Inactive IBUPROFEN 600 MG TAB 1 po q6-8hr PRN IBUPROFEN 600 MG TAB 921413 IBUPROFEN Inactive FERROUS SULFATE 325 (65 FE) MG TABS 1 tablet by mouth twice yung y FERROUS SULFATE 325 (65 FE) MG TABS 096324 FERROUS SULF ATE Inactive HYDROCODONE-ACETAMINOPHEN 7.5-500 MG [...] PRN Pain 2011 HYDROCODONE-ACETAMINOPHEN 5-325 MG TABS 029647 HYDROCODONE-ACETAMINOPHEN Inactive DOXYCYCLINE HYCLATE 100 MG CAPS Take one (1) tablet by mouth twice a day DOXYCYCLINE HYCLATE 100 MG CAPS 522171 DOXYCYCLINE HYCLATE Inactive PENICILLIN V POTASSIUM 500 MG TAB 1 four times a day 2 PENICILLIN V POTASSIUM 500 MG TAB 351706 PENICILLIN V POTASSIUM [place] ctive PRISTIQ 50 MG [id number] 1 po qd PRISTIQ 50 MG [id number] DESVENLAFAXINE SUCCINATE Inactive TYLENOL/CODEINE #3 300-30 MG TAB 1-2 po q6hr PRN Pain TYLENOL/CODEINE #3 300-30 MG TAB 130845 ACETAMINOPHEN-CODEINE Inact krishna CEPHALEXIN 500 MG TABS Take one by mouth four times daily, morning, noon, early evening and bedtime. CEPHALEXIN 500 MG TABS 576443 CEPHALEXIN Inactive LORTAB 5 5-500 MG TABS 1/2 to 1 tablet by mouth go ry 6 hours as needed for pain LORTAB 5 5-500 MG TABS HYDROCODONE-A CETAMINOPHEN Inactive AMITRIPTYLINE HCL 25 MG TAB 1 tab by mouth daily 60 minutes before bedtime AMITRIPTYLINE HCL 25 MG TAB 555541 AMITRIPTYLINE HCL Inactive AMOXICILLIN 500 MG TABS 2 tabs PO bid x 10 d 7 AMOXICILLIN 500 MG TABS 819288 AMOXICILLIN Inactive IMPLANON 68 MG IMPL IMPLANTED IN LEFT ARM IMPLANON 68 MG IMPL ETONOGESTREL Inactive HYDROCODONE-ACETAMINOPHEN 5-325 MG TABS 1 PO tid PRN pain 5 HYDROCODONE-ACETAMINOPHEN 5-325 MG TABS 631217 HYDROCODONE-ACETAMIN OPHEN Inactive BACTRIM DS 800-160 MG TAB 1 tab by mouth twice daily 2 BACTRIM DS 800-160 MG TAB TRIMETHOPRIM-SULFAMETHOXAZOLE Inac tive CEPHALEXIN 500 MG CAPS 1 PO bid x 7 days CEPHALEXIN 500 MG CAPS 693049 CEPHALEXIN Inactive HYDROCODONE-ACETAMINOPHEN 5-325 MG TABS 1 tab by mouth every 6 hours as needed HYDROCODONE-ACETAMINOPHEN 5-325 MG TABS 829687 HYDROCODONE-ACETAMINOPHEN Inactive PROMETHAZINE-CODEINE 6.25-10 MG/5ML SYRP 1 tsp every 6 hrs prn c ough PROMETHAZINE-CODEINE 6.25-10 MG/5ML SYRP 203329 PROMETH AZINE-CODEINE Inactive IBUPROFEN 800 MG TAB 1 pill three times daily as needed for pain IBUPROFEN 800 MG TAB 883933 IBUPROFEN Inactive KEFLEX 500 MG CAP 1 tab po tid KEFLEX 500 MG CAP 926401 CEPHALEXIN Inactive HYDROCODONE-ACETAMINOPHEN 7.5-325 MG TABS 1 four times a day as needed for pain HYDROCODONE-ACETAMINOPHEN 7.5-325 MG TABS 734005 HYDROCODONE-ACETAMINOPHEN Inactive BACTRIM DS 800-160 MG TABS by mouth twice a day 11/05 BACTRIM DS 800-160 MG TABS SULFAMETHOXAZOLE-TRIMETHOPRIM Inactive IBUPROFEN 800 MG TABS 1 tid prn IBUPROFEN 800 MG TABS 856957 IBUPROFEN Inactive ENDOCET 10-325 MG TABS 1 q 6 hr prn ENDOC ET 10-325 MG TABS 1390990 OXYCODONE-ACETAMINOPHEN Inactive HYDROCODONE-ACETAMINOPHEN 7.5-325 MG TABS 1 by mouth e very 6 hours as needed for pain HYDROCODONE-ACETAMINOPHEN 7.5-325 MG TABS 850412 HYDROCODONE-ACETAMINOPHEN Inactive PERCOCET 7.5-325 MG TABS 1 PO q 8 hrs PRN pain PERCOCET 7.5-325 MG TABS 8195073 OXYCODONE-ACETAMINOPHEN Inactive LIDODERM 5 % PTCH One patch to painful area DC N. On for 12 hrs, off for 12 hrs. LIDODERM 5 % PTCH 9321952 LIDOCAINE Inactiv e PERCOCET 7.5-325 MG TABS 1 PO tid PRN pain PERCOCET 7.5- 325 MG TABS 9164253 OXYCODONE-ACETAMINOPHEN Inactive MOBIC 15 MG TABS 1 tab daily MOBIC 15 MG TABS 15 2695 MELOXICAM Inactive CYCLOBENZAPRINE HCL 10 MG TABS 1/2 - 1 tab PO tid PRN back p ain, muscle spasm CYCLOBENZAPRINE HCL 10 MG TABS 578230 CYCLOBENZA JOESPH HCL Inactive LORATADINE 10 MG TABS 1 tablet by mouth daily LORATADINE 10 MG TABS 984280 LORATADINE Inactive HYDROCODONE-ACETAMINOPHEN 10-325 MG TABS 1 by mouth ev chaka 8 hours as needed for pain HYDROCODONE-ACETAMINOPHEN 10-325 MG TABS 567940 HYDROCODONE-ACETAMINOPHEN Inactive LC-5 LIDOCAINE 5 % CREA apply 1 time daily to affected area 2013 LC-5 LIDOCAINE 5 % CREA LIDOCAINE (ANORECTAL) In active PERCOCET 5-325 MG TAB 1 every 6 hours as needed PERCOCET 5-325 MG TAB 7991209 OXYCODONE-ACETAMINOPHEN Inactive KEFLEX 500 MG CAP 1 po qid KEFLEX 500 MG CAP 30 9114 CEPHALEXIN Inactive PROAIR HFA 108 (90 BASE) MCG/ACT AERS 2 puff q 4-6 hrs PRN 01/24 PROAIR HFA 108 (90 BASE) MCG/ACT AERS ALBUTEROL SULFATE Inactive AMOXICILLIN 875 MG TABS 1 tab by mouth twice daily 201 07/18/07 AMOXICILLIN 875 MG TABS 448719 AMOXICILLIN Inactive KEFLEX 500 MG CAP 1 po tid x 10 days KEFLEX 500 MG CAP 534081 CEPHALEXIN Inactive AMOXICILLIN 875 MG TABS 1 tab by mouth twice daily 201 07/19/27 AMOXICILLIN 875 MG TABS 139091 AMOXICILLIN Inactive AMOXICILLIN 875 MG TABS 1 tab by mouth twice daily 201 08/09/13 AMOXICILLIN 875 MG TABS 245981 AMOXICILLIN Inactive CIPRO 500 MG TAB 1 tablet by mouth twice daily CIPRO 500 MG TAB 838402 CIPROFLOXACIN HCL Inactive BACTRIM DS 800-160 MG TAB 1 tab by mouth twice daily 2 BACTRIM DS 800-160 MG TAB TRIMETHOPRIM-SULFAMETHOXAZOLE Inac tive LEVAQUIN 500 MG TABS 1 PO q day x 7 days LEVAQUIN 500 MG TABS 238426 LEVOFLOXACIN Inactive CLINDAMYCIN HCL 300 MG CAPS 1 po QID x 7 days CLINDAMYCIN HCL 300 MG CAPS 108760 CLINDAMYCIN HCL Inactive AUGMENTIN 875-125 MG TAB 1 tab by mouth twice daily with food 20 22/05/07 AUGMENTIN 875-125 MG TAB 093223 AMOXICILLIN-POT CLAVULA [place] Inactive DIFLUCAN 150 MG TAB 1 qODay x 2 doses DIFLUCAN 150 MG TAB 861528 FLUCONAZOLE Inactive PREDNISONE 20 MG TAB 2 tabs daily for 3 days, 1 t ab daily for 3 days, 1/2 tab daily for 2 days PREDNISONE 20 MG TAB 678483 PREDNISON E Inactive AUGMENTIN 875-125 MG TAB 1 tab by mouth twice daily with food 20 21/10/13 AUGMENTIN 875-125 MG TAB 649409 AMOXICILLIN-POT CLAVULA [place] Inactive Advance Directives Directive Description Start Date PERMISSION TO SHARE Immunizations Vaccine Administration Date Value Standard Alf cription Seasonal influenza vaccine, injectable, containing preservative, for > 3 years old (Afluria, FluLaval, Fluzone, Fluvirin, Fluarix, Agriflu(>= 18 yo)) Fluzone (>3 yrs.) [[id number]] Influenza, seasonal, inject able Seasonal influenza vaccine, injectable, preservative free, for > 3 years old (Afluria, FluLaval, Fluzone, Fluvirin, Fluarix, Agriflu(>= 18 yo)) Fluzone preservative free (>3 yrs.) [[id number]] Influenza, seasonal, injectable, preservative free Seasonal influenza vaccine, injectable, containing preservative, for > 3 years old (Afluria, FluLaval, Fluzone, Fluvirin, Fluarix, Agriflu(>= 18 yo)) Fluzone (>3 yrs.) [[id number]] Influenza, seasonal, inject able Seasonal influenza vaccine, injectable, containing preservative, for > 3 years old (Afluria, FluLaval, Fluzone, Fluvirin, Fluarix, Agriflu(>= 18 yo)) Fluzone (>3 yrs.) [[id number]] Influenza, seasonal, inject able dT (Diphtheria and [...] Panel - Chemistry sodium, serum 142 mmol/L 156-681 6435/05/12 potassium, serum 4.8 mmol/L 3.5-5.2 chloride, serum [...] Panel - Chemistry cholesterol, serum 165 mg/dL 717-217 1241/05/12 triglyceride, serum, fasting 524 mg/dL 30-200 HDL [...] negative Encounters Code Encounter Date Provider Facility CPT-79037 Level 2 Est. Patient 07:49:32 CDT [facility] CPT-23506 Level 3 New Patient 15:47:11 CLINICAL TRAINING SPECIALIST Bj huber [facility] CPT-76428 Level 4 Est. Patient 14:37:38 CLINICAL TRAINING SPECIALIST Abdirahman Rios MD [facility] CPT-92449 Level 2 Est. Patient 13:32:17 CLINICAL TRAINING SPECIALIST Kalpesh [facility] CPT-15080 Level 3 Est. Patient 17:32:57 CLINICAL TRAINING SPECIALIST Edilberto tiwari DO [facility] CPT-39964 Level 3 Est. Patient 17:22:33 CLINICAL TRAINING SPECIALIST Edilberto tiwari [facility] CPT-74213 Level 2 Est. Patient 16:57:09 CLINICAL TRAINING SPECIALIST Kalpesh [facility] CPT-21195 Level 3 Est. Patient 14:03:08 CLINICAL TRAINING SPECIALIST Abdirahman Rios MD [facility] CPT-78796 Level 3 Est. Patient 18:12:34 CDT Shola W Cloven [facility] CPT-09540 Level 3 Est. Patient 19:34:46 CDT Shola Wright [facility] CPT-53746 Level 3 Est. Patient 14:19:37 CDT Abdirahman Rios MD [facility] CPT-71255 Level 3 Est. Patient 14:11:58 CDT Kalpesh goins MD [facility]-72752 Level 3 Est. Patient 16:50:00 CDT [facility] Level 3 Est. Patient 17:11:32 CLINICAL TRAINING SPECIALIST Brandie bates MD PhD [facility]-20194 Level 3 Est. Patient 16:31:47 CLINICAL TRAINING SPECIALIST Shola Wright [facility] CPT-10067 Level 3 Est. Patient 17:51:10 CLINICAL TRAINING SPECIALIST Abhinav Galvan MD [facility] CPT-30017 Level 4 Est. Patient 12:54:56 CLINICAL TRAINING SPECIALIST [facility]pesh [facility] CPT-50129 Level 4 Est. Patient 12:53:56 CLINICAL TRAINING SPECIALIST Kalpesh goins MD [facility]-72887 Level 3 Est. Patient 17:56:58 CDT Shola Wright [facility] CPT-32076 Level 3 Est. Patient 14:26:20 CDT Janak butcher [facility] CPT-22164 Level 3 Est. Patient 09:38:41 CDT Shola Wright [facility] CPT-76025 Level 3 Est. Patient 14:45:26 CDT Edilberto tiwari DO [facility]-33540 Level 3 Est. Patient 10:51:33 CDT [facility] Est. Patient 11:57:55 CLINICAL TRAINING SPECIALIST Shola MCGILL [facility] CPT-28060 Level 3 Est. Patient 09:53:33 CLINICAL TRAINING SPECIALIST Edilberto tiwari [facility] CPT-47596 Level 3 Est. Patient 14:42:54 CLINICAL TRAINING SPECIALIST Abhinav Galvan MD [facility] CPT-44861 Level 3 Est. Patient 15:10:02 CDT Janak butcher [facility] CPT-12571 Level 3 Est. Patient 15:20:20 CDT Theo dennis MD [facility] CPT-77334 Level 2 Est. Patient 14:08:57 CDT [facility] CPT-16003 Level 3 Est. Patient 13:56:19 CDT Abdirahman Rios MD [facility] CPT-62720 Level 3 Est. Patient 13:59:37 CDT Abdirahman Rios MD [facility] CPT-33050 Level 2 Est. Patient 14:44:59 CDT Kalpesh [facility]ins [facility] CPT-62967 Level 3 Est. Patient 06:06:23 CDT Edilberto tiwari [facility] CPT-03623 Level 3 Est. Patient 15:23:54 CDT Abdirahman Rios MD [facility] CPT-50975 Level 3 Est. Patient 15:43:49 CDT Abdirahman Rios MD [facility] CPT-20225 Level 3 Est. Patient 12:46:47 CLINICAL TRAINING SPECIALIST Abdirahman Rios MD [facility] CPT-85081 Level 3 Est. Patient 08:13:35 CLINICAL TRAINING SPECIALIST Abdirahman Rios MD [facility] CPT-25579 Level 2 Est. Patient 09:36:42 CLINICAL TRAINING SPECIALIST Abdirahman Rios MD [facility] CPT-24223 Level 3 Est. Patient 10:56:43 CDT Abdirahman Rios MD [facility] CPT-31412 Level 3 Est. Patient 18:24:52 CDT Abdirahman Rios MD [facility] CPT-14704 Level 3 Est. Patient 13:27:22 CDT Abdirahman Rios MD [facility] Procedures Code Procedure Name Date Entry Date Standard Desc ription CPT-90062 Postop F/U Visit 15:02:46 CDT CPT-57885 Postop F/U Visit 11:29:00 CLINICAL TRAINING SPECIALIST CPT-J0696 Rocephin 1000 mg (Ceftriaxone) 17:22:33 CLINICAL TRAINING SPECIALIST CPT-76040 Postop F/U Visit 18:41:07 CLINICAL TRAINING SPECIALIST CPT-43961 Postop F/U Visit 08:19:08 CLINICAL TRAINING SPECIALIST CPT-65430 Immunization Single Admin 16:41:53 CDT 2013 CPT-37230 Fluzone Quadrivalent Intramuscular Suspe nsion 0.5 ML 16:41:53 CDT CPT-OV Office Visit 16:39:18 CDT CPT-OV Office Visit 16:16:36 CDT CPT-OV Office Visit 15:34:48 CDT CPT-52001 Postop F/U Visit 14:50:12 CDT CPT-37940 Postop F/U Visit 14:41:10 CDT CPT-88093 Venipuncture Draw Fee 11:38:04 CLINICAL TRAINING SPECIALIST CPT-07857 Postop F/U Visit 19:02:59 CLINICAL TRAINING SPECIALIST CPT-60558 Postop F/U Visit 12:04:54 CLINICAL TRAINING SPECIALIST CPT-35885 Administration single or combination vac cine inc oral 15:56:43 CDT CPT-28773 Influenza split virus > age 3 15:56:43 CDT CPT-61871 Hand comp min 3V 14:25:19 CDT CPT-99513 Postop F/U Visit 21:40:51 CDT CPT-93430 Postop F/U Visit 10:58:43 CDT CPT-96430 Administration single or combination vac cine inc oral 12:33:54 CLINICAL TRAINING SPECIALIST CPT-54969 Influenza Preservative Free split virus >age 3 12:33:54 CLINICAL TRAINING SPECIALIST CPT-01113 Administration single or combination vac cine inc oral 09:30:51 CDT CPT-46113 Influenza split virus > age 3 09:30:51 CDT CPT-08083 Postop F/U Visit 15:14:53 CDT CPT-22312 Postop F/U Visit 13:50:14 CDT CPT-19994 Postop F/U Visit 13:34:52 CDT CPT-OV Office Visit 16:55:03 CDT CPT-99376 [place] of cervix w bx ECC 13:32:50 CDT 10/19 CPT-J1885 Toradol 60 mg (Ketorolac) 15:31:59 CDT 2011 CPT-J1885 Toradol 60 mg (Ketorolac) 15:23:54 CDT 2011 CPT-26681 Visit 11:34:37 CLINICAL TRAINING SPECIALIST CPT-07956 Visit 10:52:39 CLINICAL TRAINING SPECIALIST CPT-64192 Visit 10:12:02 CLINICAL TRAINING SPECIALIST CPT-57966 Visit 11:22:43 CLINICAL TRAINING SPECIALIST CPT-30638 Visit 11:24:12 CLINICAL TRAINING SPECIALIST CPT-43381 Visit 10:47:05 CLINICAL TRAINING SPECIALIST CPT-OV Office Visit 10:26:16 CLINICAL TRAINING SPECIALIST CPT-OV Office Visit 15:34:31 CLINICAL TRAINING SPECIALIST CPT-71448 Visit 10:42:08 CLINICAL TRAINING SPECIALIST CPT-85064 Visit 10:52:45 CLINICAL TRAINING SPECIALIST CPT-000 Give Appropriate Flu Vaccine 16:56:41 CDT 2 CPT-60429 Administration single or combination vac cine inc oral 10:33:21 CDT CPT-23754 Influenza split virus > age 3 10:33:21 CDT CPT-08997 Visit 13:23:09 CDT CPT-54399 Visit 18:24:52 CDT CPT-53586 Sono OB comp > 14 weeks 12:07:49 CDT 04/07
--- OUTSIDE RECORDS SUMMARY | 2020-01-18 16:03 | XMS REPORT | Clinical Summary ---
Author Author Admin, Jeri Rashid Organization [facility] Address Unknown Phone Unavailable Allergies, Adverse Reactions, Alerts Allergy Name Reaction Description Start Date Severity Status Pr ovider SULFA Critical Active Jillina Frazel l POLYGRAPH TECHNICIAN TORADOL Rash Severe Active Rajni Yokjagjit [place] [...] at surgical incision 782.0 Active Hira Moser POLYGRAPH TECHNICIAN Disturbance of skin sensation , INCIDENTAL PROBLEM [...] EXT CREA apply tid, prn LIDOCAIN E-PRILOCAINE 27356243679 Active Jillina Frajalenl POLYGRAPH TECHNICIAN Active PERCOCET 5-325 MG TAB 1 tab po q 6 hours, prn OXYCODONE-ACETAMINOPHEN 42446360028 Active Jillina Frajalenl POLYGRAPH TECHNICIAN Active [id number] 50-325-40 MG ORAL TABS 1 po TID PRN Headaches [id number] 31169720505 No Longer Active Jillina Karmenl POLYGRAPH TECHNICIAN Active GLYDO 2 % EXT GEL apply to painful areas as needed 201 12/10/13 LIDOCAINE HCL 04869640715 No Longer Active Jillina Karmenl POLYGRAPH TECHNICIAN Ac tive PERCOCET 10-325 MG ORAL TABS 1 every 4 hous as needed OXYCODONE-ACETAMINOPHEN 68206401311 No Longer Active Jillina Karmenl POLYGRAPH TECHNICIAN Active LC-4 LIDOCAINE 4 % EXT CREA apply to painful area every 12 h ours or as needed LIDOCAINE 85879452473 No Longer Active Jillina Fra janee POLYGRAPH TECHNICIAN Active CHANTIX STARTING MONTH MARGARITA 0.5 MG X 11 & 1 MG X 42 TAB S 0.5mg daily for 3 days, then 0.5mg BID for 4 days, then 1mg BID VARENICL INE TARTRATE 88988602515 Active Abdirahman Rios MD Active AMOXICILLIN 500 MG CAPS 2 po BID x 10 days AMOX ICILLIN 62762870492 No Longer Active Abdirahman Rios MD Active PROMETHAZINE HCL 25 MG TABS 1 four times a day as needed for nausea/vomiting PROMETHAZINE HCL 53486217339 No Longer Active Abdirahman Rios MD Active LC-4 LIDOCAINE 4 % EXT CREA apply q 6 hours, prn 08/03 LIDOCAINE 04194840427 No Longer Active Kalpesh Dong MD Active PERCOCET 10-325 MG TABS 1 tablet every 8 hours as needed for anton[place] n OXYCODONE-ACETAMINOPHEN 42237340356 No Longer Active Kalpesh Dong MD Active HYDROCODONE-ACETAMINOPHEN 5-325 MG TABS 1 tab by mouth every 6 hours as needed for pain HYDROCODONE-ACETAMINOPHEN 93514755084 No Longer Active Kalpesh Dong MD Active AUGMENTIN 875-125 MG TAB 1 tab by mouth twice daily with food 20 23/05/16 AMOXICILLIN-POT CLAVULANATE 09780443445 No Longer Active Lizeth hi Yokum POLYGRAPH TECHNICIAN 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 FLUTICASONE PROPIONATE 80003998862 No Longer Ac tive Rajni Yokum POLYGRAPH TECHNICIAN Active PERCOCET 10-325 MG ORAL TABS take 1 tab by mouth q 4hours as needed for pain OXYCODONE-ACETAMINOPHEN 12440414066 No Longer Active Rajni Yokum POLYGRAPH TECHNICIAN Active PERCOCET 10-325 MG ORAL TABS one every 6 hours prn pain OXYCODONE-ACETAMINOPHEN 74927056088 No Longer Active Rajni Yokum POLYGRAPH TECHNICIAN Active IBUPROFEN 800 MG TABS 1 tab po tid, with food I BUPROFEN 38804488171 Active Jillina Frazell POLYGRAPH TECHNICIAN Active DICLOFENAC SODIUM 50 MG TBEC 1 tablet by mouth four times da tom PRN Pain DICLOFENAC SODIUM 53238329230 No Longer Active Rajni Yokum POLYGRAPH TECHNICIAN Active VIIBRYD 10 & 20 & 40 MG KIT 1 po qd as directed 07/24 VILAZODONE HCL 90167507391 No Longer Active Rajni Yokum POLYGRAPH TECHNICIAN Active ONDANSETRON 4 MG TBDP 1 q4h PRN nausea ONDANSET KELBY 68812635575 No Longer Active Rajni Yoyanaum POLYGRAPH TECHNICIAN Active PERCOCET 10-325 MG TABS 1 tablet every 8 hours as needed for antonia n OXYCODONE-ACETAMINOPHEN 08083952267 No Longer Active Rajni cox POLYGRAPH TECHNICIAN Active HYDROCODONE-ACETAMINOPHEN 5-325 MG TABS 1 po TID PRN Pain 9 HYDROCODONE-ACETAMINOPHEN 31427036496 No Longer Active Abdirahman Rios MD Active [id number] 50-325-40 MG ORAL CAPS 1-2 po TID WI N Headache [id number] 86748930973 No Longer Act krishna Kalpesh Dong MD Active ALPRAZOLAM 0.5 MG TABS 1 po BID PRN Anxiety ALP RAZOLAM 94469275625 No Longer Active Kalpesh Dong MD Active TRAZODONE HCL 100 MG TAB 0.5 to 1 po qHS PRN Insomnia TRAZODONE HCL 30935287806 No Longer Active Kalpesh Dong MD Activ e HYDROCODONE-ACETAMINOPHEN 5-325 MG TABS 1 po q6hr PRN Pain 04/09 HYDROCODONE-ACETAMINOPHEN 08073191969 No Longer Active Kalpesh Dong MD Active CYMBALTA 30 MG CPEP 1 cap by mouth daily DULOXE CLEO HCL 12507890375 No Longer Active Abdirahman Rios MD Active IBUPROFEN 600 MG ORAL TABS 1 by mouth twice a day 2014 IBUPROFEN 79171428451 No Longer Active Abdirahman Rios MD Activ e PERCOCET 5-325 MG TAB 1 tab po q 6 hours, prn severe pain 1 OXYCODONE-ACETAMINOPHEN 12007690274 No Longer Active Abdirahman Rios MD Active SPRINTEC 28 0.25-35 MG-MCG TABS 1 pill by mouth daily for bi rth control NORGESTIMATE-ETH ESTRADIOL 72782915950 No Longer Acti ve Matthewllina Joyzell POLYGRAPH TECHNICIAN Active CYCLOBENZAPRINE HCL 10 MG TABS 1 tablet by mouth three times daily as needed for muscle spasm/pain CYCLOBENZAPRINE HCL 77986171743 No Longer Active Jillina Frazell POLYGRAPH TECHNICIAN Active HYDROCODONE-ACETAMINOPHEN 5-325 MG TABS 1 po q6hr PRN Pain 03/09 HYDROCODONE-ACETAMINOPHEN 74734734737 No Longer Active Matthewllina Joyzel l POLYGRAPH TECHNICIAN Active AUGMENTIN 500-125 MG ORAL TABS 1 by mouth twice a day AMOXICILLIN-POT CLAVULANATE 96074103896 No Longer Active Jillina Frazell POLYGRAPH TECHNICIAN Active DICLOFENAC SODIUM 50 MG TBEC 1 tablet by mouth four times da tom PRN Pain DICLOFENAC SODIUM 56758529616 No Longer Active Jillin a Karmenl POLYGRAPH TECHNICIAN Active PROMETHAZINE HCL 25 MG TABS 1 four times a day as needed for nausea/vomiting PROMETHAZINE HCL 18535381174 No Longer Active Abdirahman Rios MD Active HYDROCODONE-ACETAMINOPHEN 5-325 MG TABS 1 tab by mouth every 6 hours as needed PRN Pain HYDROCODONE-ACETAMINOPHEN 58263261844 No Longer Active Abdirahman Rios MD Active GEMFIBROZIL 600 MG TABS 1 po BID GEMFIBROZIL 56051205 005 Active Abdirahman Rios MD Active PERCOCET 5-325 MG ORAL TABS 1 every 6 hours as needed OXYCODONE-ACETAMINOPHEN 25342920889 No Longer Active Abdirahman Rios MD Active PERCOCET 5-325 MG TAB 1 tab po q 6 -8 hours, prn for severe pain OXYCODONE-ACETAMINOPHEN 07875423966 No Longer Active Abdirahman Rios MD Active HYDROCODONE-ACETAMINOPHEN 5-325 MG TABS 1 po q6hr PRN pain 06/30 HYDROCODONE-ACETAMINOPHEN 40701512829 No Longer Active Hira roman POLYGRAPH TECHNICIAN Active GLUCOPHAGE 500 MG ORAL TABS one by mouth 3 times a day METFORMIN HCL 73322166552 No Longer Active Karenina Shanti POLYGRAPH TECHNICIAN Ac tive PERCOCET 10-325 MG TABS 1 tab by mouth every 6 hours , use sparingly for severe pain OXYCODONE-ACETAMINOPHEN 03192314275 No Longer A ctive Abdirahman Rios MD Active EMLA 2.5-2.5 % EXT CREA apply to skin lesion q 6 hours, prn 2014 LIDOCAINE-PRILOCAINE 91030350905 No Longer Active Abdirahman Rios MD Active PERCOCET 10-325 MG ORAL TABS 1 every 4 hours as needed OXYCODONE-ACETAMINOPHEN 77443672337 No Longer Active Abdirahman Rios MD Active AUGMENTIN 875-125 MG TAB 1 tab by mouth twice daily with food 20 21/10/13 AMOXICILLIN-POT CLAVULANATE 65921668369 No Longer Active Ursula Moser APRN Active PROAIR HFA 108 (90 BASE) MCG/ACT AERS 2 puff q 4-6 hrs PRN 01/24 ALBUTEROL SULFATE 55415248111 No Longer Active Kalpesh Dong MD Active PREDNISONE 20 MG TAB 2 tabs daily for 3 days, 1 t ab daily for 3 days, 1/2 tab daily for 2 days PREDNISONE 01213779122 No Longer Active Abdirahman Rios MD Active KEFLEX 500 MG CAP 1 po qid CEPHALEXIN 909075656 20 No Longer Active Kalpesh Dong MD Active PERCOCET 5-325 MG TAB 1 every 6 hours as needed OXYCODONE-ACETAMINOPHEN 48251639607 No Longer Active Shola MCGILL Active LC-5 LIDOCAINE 5 % CREA apply 1 time daily to affected area 2013 LIDOCAINE (ANORECTAL) 58348294392 No Longer Active Jillina F razell POLYGRAPH TECHNICIAN Active HYDROCODONE-ACETAMINOPHEN 10-325 MG TABS 1 by mouth ev chaka 8 hours as needed for pain HYDROCODONE-ACETAMINOPHEN 61624951802 No Longer Active Jillina Joyzell POLYGRAPH TECHNICIAN Active LORATADINE 10 MG TABS 1 tablet by mouth daily L ORATADINE 07006927596 No Longer Active Jillina Frazell POLYGRAPH TECHNICIAN Active DIFLUCAN 150 MG TAB 1 qODay x 2 doses FLUCONAZO LE 29308466167 No Longer Active Jillina Frazell POLYGRAPH TECHNICIAN Active CYCLOBENZAPRINE HCL 10 MG TABS 1/2 - 1 tab PO tid PRN back p ain, muscle spasm CYCLOBENZAPRINE HCL 81478882748 No Longer Active Karen herson Frazell POLYGRAPH TECHNICIAN Active AUGMENTIN 875-125 MG TAB 1 tab by mouth twice daily with food 20 22/05/07 AMOXICILLIN-POT CLAVULANATE 69485430223 No Longer Active Loida Rios MD Active MOBIC 15 MG TABS 1 tab daily MELOXICAM 345258887 14 No Longer Active Abdriahman Rios MD Active PERCOCET 7.5-325 MG TABS 1 PO tid PRN pain OXYCODONE-ACETAMINOPHEN 49148957566 No Longer Active Abdirahman Rios MD Active LIDODERM 5 % PTCH One patch to painful area [place]. On for 12 hrs, off for 12 hrs. LIDOCAINE 43977722368 No Longer Active Abdirahman Rios MD Active PERCOCET 7.5-325 MG TABS 1 PO q 8 hrs PRN pain OXYCODONE-ACETAMINOPHEN 00876378850 No Longer Active Shola MCGILL Active HYDROCODONE-ACETAMINOPHEN 7.5-325 MG TABS 1 by mouth e very 6 hours as needed for pain HYDROCODONE-ACETAMINOPHEN 47838153173 No Longer Active Good Julian MD Active CLINDAMYCIN HCL 300 MG CAPS 1 po QID x 7 days CLINDAMYCIN HCL 53786963761 No Longer Active Abdirahman Rios MD Activ e BACTRIM DS 800-160 MG TABS 1 po BID x 7 days 5 SULFAMETHOXAZOLE-TRIMETHOPRIM 31765477551 No Longer Active Abdirahman Rios MD Active ENDOCET 10-325 MG TABS 1 q 6 hr prn OXYCODONE-ACETAMINOPHEN 40459463195 No Longer Active Abdirahman Rios MD Active IBUPROFEN 800 MG TABS 1 tid prn IBUPROFEN 767546 94565 No Longer Active Abdirahman Rios MD Active BACTRIM DS 800-160 MG TABS by mouth twice a day 11/05 SULFAMETHOXAZOLE-TRIMETHOPRIM 99681466982 No Longer Active Good Julian MD Active HYDROCODONE-ACETAMINOPHEN 7.5-325 MG TABS 1 four times a day as needed for pain HYDROCODONE-ACETAMINOPHEN 55303787882 No Longer Activ e Good Juilan MD Active KEFLEX 500 MG CAP 1 tab po tid CEPHALEXIN 450744 59457 No Longer Active Hira Moser APRN Active IBUPROFEN 800 MG TAB 1 pill three times daily as needed for pain IBUPROFEN 85728397808 No Longer Active Kalpesh Dong MD Active PROMETHAZINE-CODEINE 6.25-10 MG/5ML SYRP 1 tsp every 6 hrs prn c ough PROMETHAZINE-CODEINE 69615239413 No Longer Active Kalpesh Carr Active HYDROCODONE-ACETAMINOPHEN 5-325 MG TABS 1 tab by mouth every 6 hours as needed HYDROCODONE-ACETAMINOPHEN 23805666656 No Longer Activ e Shola MCGILL Active CEPHALEXIN 500 MG CAPS 1 PO bid x 7 days CEPHAL EXIN 79335088324 No Longer Active Shola MCGILL Active BACTRIM DS 800-160 MG TAB 1 tab by mouth twice daily 2 TRIMETHOPRIM-SULFAMETHOXAZOLE 38495694187 No Longer Active Kalpesh Dong MD Active HYDROCODONE-ACETAMINOPHEN 5-325 MG TABS 1 PO tid PRN pain 5 HYDROCODONE-ACETAMINOPHEN 85522911239 No Longer Active Abhinav Galvan MD Active IMPLANON 68 MG IMPL IMPLANTED IN LEFT ARM ETONO GESTREL 92608398725 No Longer Active Hira Moser APRN Active AMOXICILLIN 500 MG TABS 2 tabs PO bid x 10 d AM OXICILLIN 30212284935 No Longer Active Kalpesh Dong MD Active LEVAQUIN 500 MG TABS 1 PO q day x 7 days LEVOFL OXACIN 47270978505 No Longer Active Shola MCGILL Active AMITRIPTYLINE HCL 25 MG TAB 1 tab by mouth daily 60 minutes before bedtime AMITRIPTYLINE HCL 16332609271 No Longer Active Shola MCGILL Active LORTAB 5 5-500 MG TABS 1/2 to 1 tablet by mouth go ry 6 hours as needed for pain HYDROCODONE-ACETAMINOPHEN 19988051052 No Longer Active Shola MCGILL Active CEPHALEXIN 500 MG TABS Take one by mouth four times daily, morning, noon, early evening and bedtime. CEPHALEXIN 12475610457 No Long er Active Hira Moser APRN Active TYLENOL/CODEINE #3 300-30 MG TAB 1-2 po q6hr PRN Pain ACETAMINOPHEN-CODEINE 06106062740 No Longer Active Edilberto Marino DO Active PRISTIQ 50 MG [id number] 1 po qd DESVENLAFAXI NE SUCCINATE 12513557501 No Longer Active Edilberto Marino DO Active PENICILLIN V POTASSIUM 500 MG TAB 1 four times a day 2 PENICILLIN V POTASSIUM 21961614004 No Longer Active Edilberto Marino DO Active DOXYCYCLINE HYCLATE 100 MG CAPS Take one (1) tablet by mouth twice a day DOXYCYCLINE HYCLATE 94960832700 No Longer Active Ronnie Galvan MD Active HYDROCODONE-ACETAMINOPHEN 5-325 MG TABS 1 po q 6hr PRN Pain 2011 HYDROCODONE-ACETAMINOPHEN 92862646410 No Longer Active Rosari joan Perez RN Active BACTRIM DS 800-160 MG TAB 1 tab by mouth twice daily 2 TRIMETHOPRIM-SULFAMETHOXAZOLE 01500132705 No Longer Active Klapesh Dong MD Active LORTAB 5 5-500 MG TABS 1/2 to 1 tablet by mouth go ry 4 hours as needed for pain HYDROCODONE-ACETAMINOPHEN 70799005357 No Longer Active Kalpesh Dong MD Active GENERESS FE 0.8-25 MG-MCG CHEW Take one by mouth daily NORETHIN-ETH ESTRADIOL-FE 38383724661 No Longer Active Kalpesh Dong MD Active HYDROCODONE-ACETAMINOPHEN 7.5-500 MG TABS 1-2 every 4 hours as needed HYDROCODONE-ACETAMINOPHEN 55948250310 No Longer Activ e Kalpesh Dong MD Active FERROUS SULFATE 325 (65 FE) MG TABS 1 tablet by mouth twice yung y FERROUS SULFATE 13313677718 No Longer Active Kalpesh Dong MD Active IBUPROFEN 600 MG TAB 1 po q6-8hr PRN IBUPROFEN 39128042229 No Longer Active Kalpesh Dong MD Active SPIRONOLACTONE 25 MG TAB 1 tablet by mouth daily 01/22 SPIRONOLACTONE 96964948553 No Longer Active Kalpesh Dong MD Acti ve HYDROCODONE-ACETAMINOPHEN 7.5-325 MG TABS 1 po QID PRN Pain 2011 HYDROCODONE-ACETAMINOPHEN 30195847540 No Longer Active Kalpesh Dong MD Active CLINDAMYCIN HCL 300 MG CAPS 1 po q6hr x 7 days CLINDAMYCIN HCL 65560876949 No Longer Active Edilberto Marino DO Active PREDNISONE 20 MG TAB 2 tabs daily for 4 days, 1 t ab daily for 4 days, 1/2 tab daily for 4 days PREDNISONE 28924673910 No Longer Active Edilberto Marino DO Active PERCOCET 5-325 MG TABS 1 tablet by mouth every 6 hours as ne eded for pain OXYCODONE-ACETAMINOPHEN 61992608603 No Longer Active Abdirahman Rios MD Active VITAMINS TABS Take one by mouth daily MV & MIN W/FE-FA TABS 74848322812 No Longer Active Abdirahman Rios MD Active LUIS 3-0.02 MG TABS 1 tablet by mouth daily as directed DROSPIRENONE-ETHINYL ESTRADIOL 96326651121 No Longer Active Abdirahman Rios MD Active LORATADINE 10 MG TABS 1 tablet by mouth daily L ORATADINE 25894676004 No Longer Active Kalpesh Dong MD Active HYDROCODONE-ACETAMINOPHEN 5-325 MG TABS 1 po q 6hr PRN Pain 2010 HYDROCODONE-ACETAMINOPHEN 96539603356 No Longer Active Edilberto Marino DO Active BACTRIM DS 800-160 MG TAB 1 tab by mouth twice daily 2 TRIMETHOPRIM-SULFAMETHOXAZOLE 31920635460 No Longer Active Abdirahman Rios MD Active 28-0.8 MG TABS Take one by mouth daily 09/20 VIT-FE FUMARATE-FA 56119016667 No Longer Active Abdirahman Rios MD Active CIPRO 500 MG TAB 1 tablet by mouth twice daily CIPROFLOXACIN HCL 61470445338 No Longer Active Abdirahman Rios MD Active BENADRYL 25 MG CAP 1 po q8hr PRN Congestion DIPHENHYDRAMINE HCL 95418524474 No Longer Active Abdirahman Rios MD Active ZOLOFT 50 MG TAB 1 po qd SERTRALINE HCL 270140 55413 No Longer Active Abdirahman Rios MD Active AMOXICILLIN 875 MG TABS 1 tab by mouth twice daily 201 08/09/13 AMOXICILLIN 23001870247 No Longer Active Abdirahman Rios MD Activ e AMOXICILLIN 875 MG TABS 1 tab by mouth twice daily 201 07/19/27 AMOXICILLIN 82317984382 No Longer Active Abdirahman Rios MD Activ e BACTRIM DS 800-160 MG TAB 2 tab by mouth twice daily 2 TRIMETHOPRIM-SULFAMETHOXAZOLE 98728982017 No Longer Active Abdirahman Rios MD Active KEFLEX 500 MG CAP 1 po tid x 10 days CEPHALEXIN 34149460593 No Longer Active Abdirahman Rios MD Active AMOXICILLIN 875 MG TABS 1 tab by mouth twice daily 201 07/18/07 AMOXICILLIN 58964521609 No Longer Active Abdirahman Rios MD Activ e BACTRIM DS 800-160 MG TAB 2 tab by mouth twice daily 2 BACTRIM DS 800-160 MG TAB 815398 TRIMETHOPRIM-SULFAMETHOXAZOLE Inactive ZOLOFT 50 MG TAB 1 po qd ZOLOFT 50 MG TAB 3129 41 SERTRALINE HCL Inactive BENADRYL 25 MG CAP 1 po q8hr PRN Congestion BENADRYL 25 MG CAP [id number] DIPHENHYDRAMINE HCL Inactive 28-0.8 MG TABS Take one by mouth daily 09/20 28-0.8 MG TABS VIT-FE FUMARATE-FA Inactive HYDROCODONE-ACETAMINOPHEN 5-325 MG TABS 1 po q 6hr PRN Pain 2010 HYDROCODONE-ACETAMINOPHEN 5-325 MG TABS 611034 HYDROCODONE-ACETAMINOPHEN Inactive LORATADINE 10 MG TABS 1 tablet by mouth daily LORATADINE 10 MG TABS 171527 LORATADINE Inactive LUIS 3-0.02 MG TABS 1 tablet by mouth daily as directed LUIS 3-0.02 MG TABS 291456 DROSPIRENONE-ETHINYL ESTRADIOL Inactive VITAMINS TABS Take one by mouth daily VITAMINS TABS MV & MIN W/FE-FA TABS Inactive PERCOCET 5-325 MG TABS 1 tablet by mouth every 6 hours as ne eded for pain PERCOCET 5-325 MG TABS 5641151 OXYCODONE-ACETAMIN OPHEN Inactive PREDNISONE 20 MG TAB 2 tabs daily for 4 days, 1 t ab daily for 4 days, 1/2 tab daily for 4 days PREDNISONE 20 MG TAB 837850 PREDNISON E Inactive CLINDAMYCIN HCL 300 MG CAPS 1 po q6hr x 7 days CLINDAMYCIN HCL 300 MG CAPS 727839 CLINDAMYCIN HCL Inactive HYDROCODONE-ACETAMINOPHEN 7.5-325 MG TABS 1 po QID PRN Pain 2011 HYDROCODONE-ACETAMINOPHEN 7.5-325 MG TABS 357337 HYDROCODONE-ACETAMINOPHEN Inactive SPIRONOLACTONE 25 MG TAB 1 tablet by mouth daily 01/22 SPIRONOLACTONE 25 MG TAB 218871 SPIRONOLACTONE Inactive IBUPROFEN 600 MG TAB 1 po q6-8hr PRN IBUPROFEN 600 MG TAB 375409 IBUPROFEN Inactive FERROUS SULFATE 325 (65 FE) MG TABS 1 tablet by mouth twice yung y FERROUS SULFATE 325 (65 FE) MG TABS 961219 FERROUS SULF ATE Inactive HYDROCODONE-ACETAMINOPHEN 7.5-500 MG TABS 1-2 every 4 hours as needed HYDROCODONE-ACETAMINOPHEN 7.5-500 MG TABS HYDROCODONE-ACETAMINOPHEN Inactive GENERESS FE 0.8-25 MG-MCG CHEW Take one by mouth daily GENERESS FE 0.8-25 MG-MCG CHEW [id number] NORETHIN-ETH ESTRADIOL-FE Inactive LORTAB 5 5-500 MG TABS 1/2 to 1 tablet by mouth go ry 4 hours as needed for pain LORTAB 5 5-500 MG TABS HYDROCODONE-A CETAMINOPHEN Inactive BACTRIM DS 800-160 MG TAB 1 tab by mouth twice daily 2 BACTRIM DS 800-160 MG TAB 107620 TRIMETHOPRIM-SULFAMETHOXAZOLE Inac tive HYDROCODONE-ACETAMINOPHEN 5-325 MG TABS 1 po q 6hr PRN Pain 2011 HYDROCODONE-ACETAMINOPHEN 5-325 MG TABS 126975 HYDROCODONE-ACETAMINOPHEN Inactive DOXYCYCLINE HYCLATE 100 MG CAPS Take one (1) tablet by mouth twice a day DOXYCYCLINE HYCLATE 100 MG CAPS 8489654 DOXYCYCLINE HYCLATE Inactive PENICILLIN V POTASSIUM 500 MG TAB 1 four times a day 2 PENICILLIN V POTASSIUM 500 MG TAB 266387 PENICILLIN V POTASSIUM Raymond ctive PRISTIQ 50 MG [id number] 1 po qd PRISTIQ 50 MG [id number] DESVENLAFAXINE SUCCINATE Inactive TYLENOL/CODEINE #3 300-30 MG TAB 1-2 po q6hr PRN Pain TYLENOL/CODEINE #3 300-30 MG TAB 363215 ACETAMINOPHEN-CODEINE Inact krishna CEPHALEXIN 500 MG TABS Take one by mouth four times daily, morning, noon, early evening and bedtime. CEPHALEXIN 500 MG TABS 110200 CEPHALEXIN Inactive LORTAB 5 5-500 MG TABS 1/2 to 1 tablet by mouth go ry 6 hours as needed for pain LORTAB 5 5-500 MG TABS HYDROCODONE-A CETAMINOPHEN Inactive AMITRIPTYLINE HCL 25 MG TAB 1 tab by mouth daily 60 minutes before bedtime AMITRIPTYLINE HCL 25 MG TAB 253246 AMITRIPTYLINE HCL Inactive AMOXICILLIN 500 MG TABS 2 tabs PO bid x 10 d 7 AMOXICILLIN 500 MG TABS 809815 AMOXICILLIN Inactive IMPLANON 68 MG IMPL IMPLANTED IN LEFT ARM IMPLANON 68 MG IMPL ETONOGESTREL Inactive HYDROCODONE-ACETAMINOPHEN 5-325 MG TABS 1 PO tid PRN pain 5 HYDROCODONE-ACETAMINOPHEN 5-325 MG TABS 943131 HYDROCODONE-ACETAMIN OPHEN Inactive BACTRIM DS 800-160 MG TAB 1 tab by mouth twice daily 2 BACTRIM DS 800-160 MG TAB 256184 TRIMETHOPRIM-SULFAMETHOXAZOLE Inac tive CEPHALEXIN 500 MG CAPS 1 PO bid x 7 days CEPHALEXIN 500 MG CAPS 177102 CEPHALEXIN Inactive HYDROCODONE-ACETAMINOPHEN 5-325 MG TABS 1 tab by mouth every 6 hours as needed HYDROCODONE-ACETAMINOPHEN 5-325 MG TABS 149308 HYDROCODONE-ACETAMINOPHEN Inactive PROMETHAZINE-CODEINE 6.25-10 MG/5ML SYRP 1 tsp every 6 hrs prn c ough PROMETHAZINE-CODEINE 6.25-10 MG/5ML SYRP 988596 PROMETH AZINE-CODEINE Inactive IBUPROFEN 800 MG TAB 1 pill three times daily as needed for pain IBUPROFEN 800 MG TAB 450152 IBUPROFEN Inactive KEFLEX 500 MG CAP 1 tab po tid KEFLEX 500 MG CAP 459830 CEPHALEXIN Inactive HYDROCODONE-ACETAMINOPHEN 7.5-325 MG TABS 1 four times a day as needed for pain HYDROCODONE-ACETAMINOPHEN 7.5-325 MG TABS 936062 HYDROCODONE-ACETAMINOPHEN Inactive BACTRIM DS 800-160 MG TABS by mouth twice a day 11/05 BACTRIM DS 800-160 MG TABS 045321 SULFAMETHOXAZOLE-TRIMETHOPRIM Inactive IBUPROFEN 800 MG TABS 1 tid prn IBUPROFEN 800 MG TABS 854266 IBUPROFEN Inactive ENDOCET 10-325 MG TABS 1 q 6 hr prn ENDOC ET 10-325 MG TABS 7158142 OXYCODONE-ACETAMINOPHEN Inactive HYDROCODONE-ACETAMINOPHEN 7.5-325 MG TABS 1 by mouth e very 6 hours as needed for pain HYDROCODONE-ACETAMINOPHEN 7.5-325 MG TABS 601931 HYDROCODONE-ACETAMINOPHEN Inactive PERCOCET 7.5-325 MG TABS 1 PO q 8 hrs PRN pain PERCOCET 7.5-325 MG TABS 4922024 OXYCODONE-ACETAMINOPHEN Inactive LIDODERM 5 % PTCH One patch to painful area [place] N. On for 12 hrs, off for 12 hrs. LIDODERM 5 % [facility] 7623876 LIDOCAINE Inactiv e PERCOCET 7.5-325 MG TABS 1 PO tid PRN pain PERCOCET 7.5- 325 MG TABS 5140694 OXYCODONE-ACETAMINOPHEN Inactive MOBIC 15 MG TABS 1 tab daily MOBIC 15 MG TABS 15 2695 MELOXICAM Inactive CYCLOBENZAPRINE HCL 10 MG TABS 1/2 - 1 tab PO tid PRN back p ain, muscle spasm CYCLOBENZAPRINE HCL 10 MG TABS 091802 CYCLOBENZA JOSEPH HCL Inactive LORATADINE 10 MG TABS 1 tablet by mouth daily LORATADINE 10 MG TABS 401064 LORATADINE Inactive HYDROCODONE-ACETAMINOPHEN 10-325 MG TABS 1 by mouth ev chaka 8 hours as needed for pain HYDROCODONE-ACETAMINOPHEN 10-325 MG TABS 982150 HYDROCODONE-ACETAMINOPHEN Inactive LC-5 LIDOCAINE 5 % CREA apply 1 time daily to affected area 2013 LC-5 LIDOCAINE 5 % CREA 7152949 LIDOCAINE (ANORECTAL) In active PERCOCET 5-325 MG TAB 1 every 6 hours as needed PERCOCET 5-325 MG TAB 9336324 OXYCODONE-ACETAMINOPHEN Inactive KEFLEX 500 MG CAP 1 po qid KEFLEX 500 MG CAP 30 9114 CEPHALEXIN Inactive PROAIR HFA 108 (90 BASE) MCG/ACT AERS 2 puff q 4-6 hrs PRN 01/24 PROAIR HFA 108 (90 BASE) MCG/ACT AERS ALBUTEROL SULFATE Inactive PERCOCET 10-325 MG ORAL TABS 1 every 4 hours as needed PERCOCET 10-325 MG ORAL TABS 3779897 OXYCODONE-ACETAMINOPHEN Inactiv e EMLA 2.5-2.5 % EXT CREA apply to skin lesion q 6 hours, prn 2014 EMLA 2.5-2.5 % EXT CREA [id number] LIDOCAINE-PRILOCAINE Raymond ctive PERCOCET 10-325 MG TABS 1 tab by mouth every 6 hours , use sparingly for severe pain PERCOCET 10-325 MG TABS [id number] OXYCODONE-ACETAMINOPHEN Inactive GLUCOPHAGE 500 MG ORAL TABS one by mouth 3 times a day GLUCOPHAGE 500 MG ORAL TABS [id number] METFORMIN HCL Inactive HYDROCODONE-ACETAMINOPHEN 5-325 MG TABS 1 po q6hr PRN pain 06/30 HYDROCODONE-ACETAMINOPHEN 5-325 MG TABS [id number] HYDROCOD ONE-ACETAMINOPHEN Inactive PERCOCET 5-325 MG TAB 1 tab po q 6 -8 hours, prn for severe pain PERCOCET 5-325 MG TAB [id number] OXYCODONE-ACETAMINOPHEN In active PERCOCET 5-325 MG ORAL TABS 1 every 6 hours as needed PERCOCET 5-325 MG ORAL TABS [id number] OXYCODONE-ACETAMINOPHEN Inactive DICLOFENAC SODIUM 50 MG TBEC 1 tablet by mouth four times da tom PRN Pain DICLOFENAC SODIUM 50 MG TBEC [id number] DICLOFENAC S ODIUM Inactive AUGMENTIN 500-125 MG ORAL TABS 1 by mouth twice a day AUGMENTIN 500-125 MG ORAL TABS [id number] AMOXICILLIN-POT CLAVULANATE I nactive HYDROCODONE-ACETAMINOPHEN 5-325 MG TABS 1 po q6hr PRN Pain 03/09 HYDROCODONE-ACETAMINOPHEN 5-325 MG TABS [id number] HYDROCOD ONE-ACETAMINOPHEN Inactive CYCLOBENZAPRINE HCL 10 MG TABS 1 tablet by mouth three times daily as needed for muscle spasm/pain CYCLOBENZAPRINE HCL 10 MG TABS [id number] CYCLOBENZAPRINE HCL Inactive SPRINTEC 28 0.25-35 MG-MCG TABS 1 pill by mouth daily for bi rth control SPRINTEC 28 0.25-35 MG-MCG TABS [id number] NORGESTIMATE-ETH ESTRADIOL Inactive PERCOCET 5-325 MG TAB 1 tab po q 6 hours, prn severe pain PERCOCET 5-325 MG TAB [id number] OXYCODONE-ACETAMINOPHEN Inactive IBUPROFEN 600 MG ORAL TABS 1 by mouth twice a day 2014 IBUPROFEN 600 MG ORAL TABS [id number] IBUPROFEN Inactive CYMBALTA 30 MG CPEP 1 cap by mouth daily CYMBALTA 30 MG CPEP [id number] DULOXETINE HCL Inactive HYDROCODONE-ACETAMINOPHEN 5-325 MG TABS 1 po q6hr PRN Pain 04/09 HYDROCODONE-ACETAMINOPHEN 5-325 MG TABS [id number] HYDROCOD ONE-ACETAMINOPHEN Inactive TRAZODONE HCL 100 MG TAB 0.5 to 1 po qHS PRN Insomnia TRAZODONE HCL 100 MG TAB 875519 TRAZODONE HCL Inactive ALPRAZOLAM 0.5 MG TABS 1 po BID PRN Anxiety ALPRAZOLAM 0.5 MG TABS 274187 ALPRAZOLAM Inactive QGBHZSGRIE-IDV-USCDJKGI 50-325-40 MG ORAL CAPS 1-2 po TID WI N Headache WKROXSWMMH-PFV-ENGZAXYQ 50-325-40 MG ORAL CAPS 2 35748 DBLDGBCJNT-ISUWDTA-WHGGLHFT Inactive HYDROCODONE-ACETAMINOPHEN 5-325 MG TABS 1 po TID PRN Pain 9 HYDROCODONE-ACETAMINOPHEN 5-325 MG TABS 674570 HYDROCODONE-ACETAMIN OPHEN Inactive PERCOCET 10-325 MG TABS 1 tablet every 8 hours as needed for antonia n PERCOCET 10-325 MG TABS [id number] OXYCODONE-ACETAMINOPHEN Inactive ONDANSETRON 4 MG TBDP 1 q4h PRN nausea ON DANSETRON 4 MG TBDP 189815 ONDANSETRON Inactive VIIBRYD 10 & 20 & 40 MG KIT 1 po qd as directed 07/24 VIIBRYD 10 & 20 & 40 MG KIT VILAZODONE HCL Inactive DICLOFENAC SODIUM 50 MG TBEC 1 tablet by mouth four times da tom PRN Pain DICLOFENAC SODIUM 50 MG TBEC 237047 DICLOFENAC S ODIUM Inactive PERCOCET 10-325 MG ORAL TABS one every 6 hours prn pain PERCOCET 10-325 MG ORAL TABS [id number] OXYCODONE-ACETAMINOPHEN Inactiv e PERCOCET 10-325 MG ORAL TABS take 1 tab by mouth q 4hours as needed for pain PERCOCET 10-325 MG ORAL TABS [id number] OXYCODONE-ACETAMINOPHEN Inactive FLONASE ALLERGY RELIEF 50 MCG/ACT NASAL SUSP One spray in each nostril twice a day. FLONASE ALLERGY RELIEF 50 MCG/ACT NASAL [facility] 656070 FLUTICASONE PROPIONATE Inactive AUGMENTIN 875-125 MG TAB 1 tab by mouth twice daily with food 20 23/05/16 AUGMENTIN 875-125 MG TAB 272603 AMOXICILLIN-POT [place] Inactive HYDROCODONE-ACETAMINOPHEN 5-325 MG TABS 1 tab by mouth every 6 hours as needed for pain HYDROCODONE-ACETAMINOPHEN 5-325 MG TABS 8 51597 HYDROCODONE-ACETAMINOPHEN Inactive PERCOCET 10-325 MG TABS 1 tablet every 8 hours as needed for antonai n PERCOCET 10-325 MG TABS 3490735 OXYCODONE-ACETAMINOPHEN Inactive LC-4 LIDOCAINE 4 % EXT CREA apply q 6 hours, prn 08/03 LC-4 LIDOCAINE 4 % EXT CREA [id number] LIDOCAINE Inactive PROMETHAZINE HCL 25 MG TABS 1 four times a day as needed for nausea/vomiting PROMETHAZINE HCL 25 MG TABS 731605 PROMETHAZINE HCL Inactive LC-4 LIDOCAINE 4 % EXT CREA apply to painful area every 12 h ours or as needed LC-4 LIDOCAINE 4 % EXT CREA 0616264 LIDOCAINE Inactive PERCOCET 10-325 MG ORAL TABS 1 every 4 hous as needed PERCOCET 10-325 MG ORAL TABS 5886997 OXYCODONE-ACETAMINOPHEN Inactiv e GLYDO 2 % EXT GEL apply to painful areas as needed 201 12/10/13 GLYDO 2 % EXT GEL 1078755 LIDOCAINE HCL Inactive HUUGPMRQMI-XVWP-IYZQQZVD 50-325-40 MG ORAL TABS 1 po TID PRN Headaches CWWMHRBTDH-THSZ-MLOJJZCV 50-325-40 MG ORAL TABS 676721 XDRNYZPOLA-ZSCD-ZKBZUFRV Inactive AMOXICILLIN 875 MG TABS 1 tab by mouth twice daily 201 07/18/07 AMOXICILLIN 875 MG TABS 096298 AMOXICILLIN Inactive KEFLEX 500 MG CAP 1 po tid x 10 days KEFLEX 500 MG CAP 604338 CEPHALEXIN Inactive AMOXICILLIN 875 MG TABS 1 tab by mouth twice daily 201 07/19/27 AMOXICILLIN 875 MG TABS 218540 AMOXICILLIN Inactive AMOXICILLIN 875 MG TABS 1 tab by mouth twice daily 201 08/09/13 AMOXICILLIN 875 MG TABS 227866 AMOXICILLIN Inactive CIPRO 500 MG TAB 1 tablet by mouth twice daily CIPRO 500 MG TAB 325114 CIPROFLOXACIN HCL Inactive BACTRIM DS 800-160 MG TAB 1 tab by mouth twice daily 2 BACTRIM DS 800-160 MG TAB 020443 TRIMETHOPRIM-SULFAMETHOXAZOLE Inac tive LEVAQUIN 500 MG TABS 1 PO q day x 7 days LEVAQUIN 500 MG TABS 734160 LEVOFLOXACIN Inactive CLINDAMYCIN HCL 300 MG CAPS 1 po QID x 7 days CLINDAMYCIN HCL 300 MG CAPS 258522 CLINDAMYCIN HCL Inactive AUGMENTIN 875-125 MG TAB 1 tab by mouth twice daily with food 20 22/05/07 AUGMENTIN 875-125 MG TAB 160613 AMOXICILLIN-POT [place] Inactive DIFLUCAN 150 MG TAB 1 qODay x 2 doses DIFLUCAN 150 MG TAB 299128 FLUCONAZOLE Inactive PREDNISONE 20 MG TAB 2 tabs daily for 3 days, 1 t ab daily for 3 days, 1/2 tab daily for 2 days PREDNISONE 20 MG TAB 887952 PREDNISON E Inactive AUGMENTIN 875-125 MG TAB 1 tab by mouth twice daily with food 20 21/10/13 AUGMENTIN 875-125 MG TAB 512065 AMOXICILLIN-POT [place] Inactive HYDROCODONE-ACETAMINOPHEN 5-325 MG TABS 1 tab by mouth every 6 hours as needed PRN Pain HYDROCODONE-ACETAMINOPHEN 5-325 MG TABS 8 67210 HYDROCODONE-ACETAMINOPHEN Inactive PROMETHAZINE HCL 25 MG TABS 1 four times a day as needed for nausea/vomiting PROMETHAZINE HCL 25 MG TABS 233929 PROMETHAZINE HCL Inactive AMOXICILLIN 500 MG CAPS 2 po BID x 10 days AMOXICILLIN 500 MG CAPS 253808 AMOXICILLIN Inactive Advance Directives Directive Description Start Date PERMISSION TO SHARE Immunizations Vaccine Administration Date Value Standard Alf cription Seasonal influenza vaccine, injectable, containing preservative, for > 3 years old (Afluria, FluLaval, Fluzone, Fluvirin, Fluarix, Agriflu(>= 18 yo)) Fluzone (>3 yrs.) [[id number]] Influenza, seasonal, inject able Seasonal influenza vaccine, injectable, preservative free, for > 3 years old (Afluria, FluLaval, Fluzone, Fluvirin, Fluarix, Agriflu(>= 18 yo)) Fluzone preservative free (>3 yrs.) [[id number]] Influenza, seasonal, injectable, preservative free Seasonal influenza vaccine, injectable, containing preservative, for > 3 years old (Afluria, FluLaval, Fluzone, Fluvirin, Fluarix, Agriflu(>= 18 yo)) Fluzone (>3 yrs.) [[id number]] Influenza, seasonal, inject able Seasonal influenza vaccine, injectable, containing preservative, for > 3 years old (Afluria, FluLaval, Fluzone, Fluvirin, Fluarix, Agriflu(>= 18 yo)) Fluzone (>3 yrs.) [[id number]] Influenza, seasonal, inject able dT (Diphtheria and Tetanus) booster given Histor ical Td(adult) unspecified formulation Vital Signs Date Name Value Unit Range Description blood pressure, diastolic - 8462-4 71 mm[Hg] BP ribeiro blood pressure, systolic - 8480-6 141 mm[Hg] BP sys pulse rate E&M - 8867-4 80 /min H eart rate temperature E&M 98.8 [degF] Body temp erature weight E&M - 3141-9 233.0 [lb_av] Weigh t Measured blood pressure, diastolic - 8462-4 88 mm[Hg] BP ribeiro blood pressure, systolic - 8480-6 145 mm[Hg] BP sys pulse rate E&M - 8867-4 103 /min H eart rate temperature E&M 97.6 [degF] Body temp erature weight E&M - 3141-9 235.5 [lb_av] Weigh t Measured blood pressure, diastolic - 8462-4 87 mm[Hg] BP ribiero blood pressure, systolic - 8480-6 145 mm[Hg] [...] count 430 10^3/MM^3 10*3/mm3 142-424 Lab Report: Comp. Metabolic Panel, Thyro id Stimulating Hormone (L), MICR ... - Chemistry sodium, serum 137 mmol/L [phone]/02/24 carbon dioxide, venous blood 26.3 mmol/L 21.0-32 [...] count, blood <1 IU/mL 10*3/mm3 Lab Report: Lipid Panel - Chemistry cholesterol, serum 181 mg/dL 340-288 2605/09/01 triglyceride, serum, fasting 341 mg/dL 30-200 HDL cholesterol, serum 22 mg/dL 32-96 LDL cholesterol, serum 91 mg/dL 0-130 Lab Report: UADIP W/MICRO, AUTO - Chemis [...] negative Encounters Code Encounter Date Provider Facility CPT-46045 Level 3 Est. Patient 16:33:24 CDT Kalpesh goins MD [facility] CPT-09414 Level 3 Est. Patient 08:29:37 CDT Hira muniz [facility] CPT-29971 Level 3 Est. Patient 10:28:25 CDT Hira muniz [facility] CPT-71482 Level 4 Est. Patient 16:38:26 TRAVELING CONSTRUCTION SUPERINTENDENT Abdirahman Rios MD [facility]-78967 Level 3 Est. Patient 05:31:41 TRAVELING CONSTRUCTION SUPERINTENDENT Kalpesh goins MD [facility] CPT-28125 Level 3 Est. Patient 11:22:02 TRAVELING CONSTRUCTION SUPERINTENDENT Hira muniz [facility] CPT-93752 Level 3 Est. Patient 21:00:18 TRAVELING CONSTRUCTION SUPERINTENDENT Rajni danielson [facility] CPT-00631 Level 3 Est. Patient 14:15:00 TRAVELING CONSTRUCTION SUPERINTENDENT Kalpesh goins MD [facility] CPT-50566 Level 2 Est. Patient 19:57:52 TRAVELING CONSTRUCTION SUPERINTENDENT Rajni danielson [facility] CPT-26363 Level 3 Est. Patient 16:58:40 TRAVELING CONSTRUCTION SUPERINTENDENT Bj funes MD [facility] CPT-02650 Level 3 Est. Patient 08:51:33 CDT Kalpesh goins MD [facility] CPT-46279 Level 4 Est. Patient 14:14:53 CDT Abdirahman Rios MD [facility] CPT-25314 Level 3 Est. Patient 15:47:40 CDT Kalpesh goins MD [facility] CPT-64898 Level 3 Est. Patient 10:57:26 CDT Abdirahman Rios MD [facility] CPT-05445 Level 3 Est. Patient 14:29:53 CDT Abhinav Galvan MD [facility] CPT-09039 Level 2 Est. Patient 16:33:01 CDT Kalpesh goins MD [facility] CPT-84397 Level 4 Est. Patient 16:44:56 CDT Abdirahman Rios MD [facility] CPT-59743 Level 2 Est. Patient 07:49:32 CDT Kalpesh goins MD [facility] CPT-52892 Level 3 New Patient 15:47:11 TRAVELING CONSTRUCTION SUPERINTENDENT Bj huber MD [facility] CPT-00744 Level 4 Est. Patient 14:37:38 TRAVELING CONSTRUCTION SUPERINTENDENT Abdirahman Rios MD [facility] CPT-68256 Level 2 Est. Patient 13:32:17 TRAVELING CONSTRUCTION SUPERINTENDENT Kalpesh goins MD [facility] CPT-24418 Level 3 Est. Patient 17:32:57 TRAVELING CONSTRUCTION SUPERINTENDENT Edilberto twiari [facility] CPT-44443 Level 3 Est. Patient 17:22:33 TRAVELING CONSTRUCTION SUPERINTENDENT Edilberto tiwari [facility] CPT-98068 Level 2 Est. Patient 16:57:09 TRAVELING CONSTRUCTION SUPERINTENDENT Kalpesh goins MD [facility] CPT-61860 Level 3 Est. Patient 14:03:08 TRAVELING CONSTRUCTION SUPERINTENDENT Abdirahman Rios MD [facility] CPT-76995 Level 3 Est. Patient 18:12:34 CDT Shola Wright [facility] CPT-00148 Level 3 Est. Patient 19:34:46 CDT Shola Wright [facility] CPT-13945 Level 3 Est. Patient 14:19:37 CDT Abdirahman Rios MD [facility] CPT-96424 Level 3 Est. Patient 14:11:58 CDT Kalpesh goins MD [facility] CPT-33836 Level 3 Est. Patient 16:50:00 CDT Michelle BRADFORDP [facility] CPT-18175 Level 3 Est. Patient 17:11:32 TRAVELING CONSTRUCTION SUPERINTENDENT Brandie bates MD PhD [facility] CPT-04671 Level 3 Est. Patient 16:31:47 TRAVELING CONSTRUCTION SUPERINTENDENT Shola Wright [facility] CPT-70934 Level 3 Est. Patient 17:51:10 TRAVELING CONSTRUCTION SUPERINTENDENT Abhinav Galvan MD [facility] CPT-28376 Level 4 Est. Patient 12:54:56 TRAVELING CONSTRUCTION SUPERINTENDENT Kalpesh goins MD [facility]-85895 Level 4 Est. Patient 12:53:56 TRAVELING CONSTRUCTION SUPERINTENDENT Kalpesh goins MD [facility] CPT-41392 Level 3 Est. Patient 17:56:58 CDT Shola Wright [facility] CPT-81321 Level 3 Est. Patient 14:26:20 CDT Janak butcher [facility] CPT-08720 Level 3 Est. Patient 09:38:41 CDT Shola Wright [facility] CPT-97223 Level 3 Est. Patient 14:45:26 CDT Edilberto tiwari [facility] CPT-81559 Level 3 Est. Patient 10:51:33 CDT [facility]45 Level 3 Est. Patient 11:57:55 TRAVELING CONSTRUCTION SUPERINTENDENT Shola Wright [facility] CPT-43140 Level 3 Est. Patient 09:53:33 TRAVELING CONSTRUCTION SUPERINTENDENT Edilberto tiwari [facility] CPT-27983 Level 3 Est. Patient 14:42:54 TRAVELING CONSTRUCTION SUPERINTENDENT Abhinav Galvan MD [facility]-50705 Level 3 Est. Patient 15:10:02 CDT Janak MCGILL [facility] CPT-19301 Level 3 Est. Patient 15:20:20 CDT Theo dennis MD [facility] CPT-57594 Level 2 Est. Patient 14:08:57 CDT Kalpesh goins MD [facility] CPT-81974 Level 3 Est. Patient 13:56:19 CDT Abdirahman Rios MD [facility] CPT-34705 Level 3 Est. Patient 13:59:37 CDT Abdirahman Rios MD [facility] CPT-69629 Level 2 Est. Patient 14:44:59 CDT Kalpesh goins MD [facility] CPT-99835 Level 3 Est. Patient 06:06:23 CDT Edilberto tiwari DO [facility] CPT-09762 Level 3 Est. Patient 15:23:54 CDT Abdirahman Rios MD [facility] CPT-42147 Level 3 Est. Patient 15:43:49 CDT Abdirahman Rios MD [facility] CPT-48306 Level 3 Est. Patient 12:46:47 TRAVELING CONSTRUCTION SUPERINTENDENT Abdirahman Rios MD [facility] CPT-93567 Level 3 Est. Patient 08:13:35 TRAVELING CONSTRUCTION SUPERINTENDENT Abdirahman Rios MD [facility] CPT-70756 Level 2 Est. Patient 09:36:42 TRAVELING CONSTRUCTION SUPERINTENDENT Abdirahman Rios MD [facility] CPT-94579 Level 3 Est. Patient 10:56:43 CDT Abdirahman Rios MD [facility] CPT-70758 Level 3 Est. Patient 18:24:52 CDT Abdirahman Rios MD [facility] CPT-08601 Level 3 Est. Patient 13:27:22 CDT Abdirahman Rios MD [facility] Procedures Code Procedure Name Date Entry Date Standard Desc ription CPT-18373 Postop F/U Visit 16:21:51 TRAVELING CONSTRUCTION SUPERINTENDENT CPT-30884 Postop F/U Visit 17:09:41 TRAVELING CONSTRUCTION SUPERINTENDENT CPT-09876 Postop F/U Visit 14:08:43 TRAVELING CONSTRUCTION SUPERINTENDENT CPT-03681 Postop F/U Visit 15:18:16 TRAVELING CONSTRUCTION SUPERINTENDENT CPT-16195 Postop F/U Visit 15:03:49 TRAVELING CONSTRUCTION SUPERINTENDENT CPT-13954 Postop F/U Visit 14:45:23 TRAVELING CONSTRUCTION SUPERINTENDENT CPT-73020 Postop F/U Visit 14:11:03 TRAVELING CONSTRUCTION SUPERINTENDENT CPT-62220 Postop F/U Visit 18:21:21 TRAVELING CONSTRUCTION SUPERINTENDENT CPT-78774 Postop F/U Visit 15:57:12 TRAVELING CONSTRUCTION SUPERINTENDENT CPT-99641 Bladder Instillation 16:58:41 TRAVELING CONSTRUCTION SUPERINTENDENT 6 CPT-98133 Fluzone Quadrivalent Intramuscular Suspe nsion 0.5 ML 15:20:56 TRAVELING CONSTRUCTION SUPERINTENDENT CPT-11958 Immunization Single Admin 15:20:56 TRAVELING CONSTRUCTION SUPERINTENDENT 2014 CPT-45609 Excis pilonidal cyst simple 08:51:34 CDT 20 22/04/20 CPT-21529 Venipuncture Draw Fee 14:27:29 CDT CPT-77531 Postop F/U Visit 15:27:43 CDT CPT-91925 Postop F/U Visit 14:40:59 CDT CPT-28744 Postop F/U Visit 15:02:46 CDT CPT-47003 Postop F/U Visit 11:29:00 TRAVELING CONSTRUCTION SUPERINTENDENT CPT-J0696 Rocephin 1000 mg (Ceftriaxone) 17:22:33 TRAVELING CONSTRUCTION SUPERINTENDENT CPT-96196 Postop F/U Visit 18:41:07 TRAVELING CONSTRUCTION SUPERINTENDENT CPT-84455 Postop F/U Visit 08:19:08 TRAVELING CONSTRUCTION SUPERINTENDENT CPT-51480 Immunization Single Admin 16:41:53 CDT 2013 CPT-00848 Fluzone Quadrivalent Intramuscular Suspe nsion 0.5 ML 16:41:53 CDT CPT-OV Office Visit 16:39:18 CDT CPT-OV Office Visit 16:16:36 CDT CPT-OV Office Visit 15:34:48 CDT CPT-44702 Postop F/U Visit 14:50:12 CDT CPT-48711 Postop F/U Visit 14:41:10 CDT CPT-32991 Venipuncture Draw Fee 11:38:04 TRAVELING CONSTRUCTION SUPERINTENDENT CPT-60946 Postop F/U Visit 19:02:59 TRAVELING CONSTRUCTION SUPERINTENDENT CPT-80934 Postop F/U Visit 12:04:54 TRAVELING CONSTRUCTION SUPERINTENDENT CPT-14180 Administration single or combination vac cine inc oral 15:56:43 CDT CPT-85966 Influenza split virus > age 3 15:56:43 CDT CPT-79341 Hand comp min 3V 14:25:19 CDT CPT-95518 Postop F/U Visit 21:40:51 CDT CPT-56640 Postop F/U Visit 10:58:43 CDT CPT-43578 Administration single or combination vac cine inc oral 12:33:54 TRAVELING CONSTRUCTION SUPERINTENDENT CPT-99303 Influenza Preservative Free split virus >age 3 12:33:54 TRAVELING CONSTRUCTION SUPERINTENDENT CPT-52691 Administration single or combination vac cine inc oral 09:30:51 CDT CPT-46858 Influenza split virus > age 3 09:30:51 CDT CPT-60754 Postop F/U Visit 15:14:53 CDT CPT-43976 Postop F/U Visit 13:50:14 CDT CPT-79989 Postop F/U Visit 13:34:52 CDT CPT-OV Office Visit 16:55:03 CDT CPT-54680 [place] of cervix w bx ECC 13:32:50 CDT 10/19 CPT-J1885 Toradol 60 mg (Ketorolac) 15:31:59 CDT 2011 CPT-J1885 Toradol 60 mg (Ketorolac) 15:23:54 CDT 2011 CPT-88200 Visit 11:34:37 TRAVELING CONSTRUCTION SUPERINTENDENT CPT-32686 Visit 10:52:39 TRAVELING CONSTRUCTION SUPERINTENDENT CPT-91608 Visit 10:12:02 TRAVELING CONSTRUCTION SUPERINTENDENT CPT-09671 Visit 11:22:43 TRAVELING CONSTRUCTION SUPERINTENDENT CPT-72683 Visit 11:24:12 TRAVELING CONSTRUCTION SUPERINTENDENT CPT-13850 Visit 10:47:05 TRAVELING CONSTRUCTION SUPERINTENDENT CPT-OV Office Visit 10:26:16 TRAVELING CONSTRUCTION SUPERINTENDENT CPT-OV Office Visit 15:34:31 TRAVELING CONSTRUCTION SUPERINTENDENT CPT-04394 Visit 10:42:08 TRAVELING CONSTRUCTION SUPERINTENDENT CPT-49426 Visit 10:52:45 TRAVELING CONSTRUCTION SUPERINTENDENT CPT-000 Give Appropriate Flu Vaccine 16:56:41 CDT 2 CPT-66716 Administration single or combination vac cine inc oral 10:33:21 CDT CPT-34609 Influenza split virus > age 3 10:33:21 CDT CPT-43357 Visit 13:23:09 CDT CPT-76705 Visit 18:24:52 CDT CPT-71838 Sono OB comp > 14 weeks 12:07:49 CDT 04/07
--- OUTSIDE RECORDS SUMMARY | 2020-01-18 16:03 | XMS REPORT | Clinical Summary ---
Author Author Admin, Jeri Rashid Organization [facility] Address Unknown Phone Unavailable Allergies, Adverse [...] system, NEC ACUTE BRONCHITIS 466.0 Resolved Good mlechor MD Acute bronchitis JAW PAIN 526.9 Resolved [...] 1 every 4 hours as needed OXYCODONE-ACETAMINOPHEN 41754672095 Active Hira Moser [employer]ERGROUND [employer]EMAN Active PROAIR HFA 108 (90 BASE) MCG/ACT AERS 2 puff q 4-6 hrs PRN 01/24 ALBUTEROL SULFATE 53596993289 No Longer Active Kalpesh Dong MD Active ALPRAZOLAM 0.5 MG TABS 1 po BID PRN Anxiety ALPRA ZOLAM 93356982241 Active Abdirahman Rios MD Active EMLA 2.5-2.5 % EXT CREA apply to skin lesion q 6 hours, prn LIDOCAINE-PRILOCAINE 85797499058 Active Hira Moser APRN Active CYCLOBENZAPRINE HCL 10 MG TABS 1 tablet by mouth three times daily as needed for muscle spasm/pain CYCLOBENZAPRINE HCL 86411503138 Active Abdirahman Rios MD Active PREDNISONE 20 MG TAB 2 tabs daily for 3 days, 1 t ab daily for 3 days, 1/2 tab daily for 2 days PREDNISONE 49826942613 No Longer Active Abdirahman Rios MD Active KEFLEX 500 MG CAP 1 po qid CEPHALEXIN 353448337 20 No Longer Active Kalpesh Dong MD Active PERCOCET 5-325 MG TAB 1 every 6 hours as needed OXYCODONE-ACETAMINOPHEN 37113818664 No Longer Active Shola MCGILL Active LC-5 LIDOCAINE 5 % CREA apply 1 time daily to affected area 2013 LIDOCAINE (ANORECTAL) 98001409620 No Longer Active Hira muniz [employer]EMAN Active HYDROCODONE-ACETAMINOPHEN 5-325 MG TABS 2 tablets by m outh every 8 hours as needed for pain HYDROCODONE-ACETAMINOPHEN 55962703462 Acti ve Rajni Yokum UNDERGROUND [employer]ING SECTION FOREMAN Active HYDROCODONE-ACETAMINOPHEN 10-325 MG TABS 1 by mouth ev chaka 8 hours as needed for pain HYDROCODONE-ACETAMINOPHEN 55228989468 No Longer Active Matthewllina Shanti UNDERGROUND [employer]ING SECTION FOREMAN Active LORATADINE 10 MG TABS 1 tablet by mouth daily L ORATADINE 78595642531 No Longer Active Matthewllherson Moser UNDERGROUND [employer]ING SECTION FOREMAN Active DIFLUCAN 150 MG TAB 1 qODay x 2 doses FLUCONAZO LE 51372416637 No Longer Active Jillina Karmenl UNDERGROUND [employer]ING [employer]CTION FOREMAN Active CYCLOBENZAPRINE HCL 10 MG TABS 1/2 - 1 tab PO tid PRN back p ain, muscle spasm CYCLOBENZAPRINE HCL 59797025953 No Longer Active Karen herson Frazell UNDERGROUND MINING SECTION FOREMAN Active AUGMENTIN 875-125 MG TAB 1 tab by mouth twice daily with food 20 22/05/07 AMOXICILLIN-POT CLAVULANATE 34603323947 No Longer Active Loida Rios MD Active MOBIC 15 MG TABS 1 tab daily MELOXICAM 044578771 14 No Longer Active Abdirahman Rios MD Active PERCOCET 7.5-325 MG TABS 1 PO tid PRN pain OXYCODONE-ACETAMINOPHEN 26333655940 No Longer Active Abdirahman Rios MD Active LIDODERM 5 % PTCH One patch to painful area [place] On for 12 hrs, off for 12 hrs. LIDOCAINE 65234665253 No Longer Active Abdirahman Rios MD Active PERCOCET 7.5-325 MG TABS 1 PO q 8 hrs PRN pain OXYCODONE-ACETAMINOPHEN 47041841981 No Longer Active Shola MCGILL Active HYDROCODONE-ACETAMINOPHEN 7.5-325 MG TABS 1 by mouth e very 6 hours as needed for pain HYDROCODONE-ACETAMINOPHEN 37134818617 No Longer Active Good Julian MD Active CLINDAMYCIN HCL 300 MG CAPS 1 po QID x 7 days CLINDAMYCIN HCL 68862053919 No Longer Active Abdirahman Rios MD Activ e BACTRIM DS 800-160 MG TABS 1 po BID x 7 days 5 SULFAMETHOXAZOLE-TRIMETHOPRIM 19387347863 No Longer Active Abdirahman Rios MD Active ENDOCET 10-325 MG TABS 1 q 6 hr prn OXYCODONE-ACETAMINOPHEN 98119590339 No Longer Active Abdirahman Rios MD Active IBUPROFEN 800 MG TABS 1 tid prn IBUPROFEN 976517 40900 No Longer Active Abdirahman Rios MD Active BACTRIM DS 800-160 MG TABS by mouth twice a day 11/05 SULFAMETHOXAZOLE-TRIMETHOPRIM 21544198668 No Longer Active Good Julian MD Active HYDROCODONE-ACETAMINOPHEN 7.5-325 MG TABS 1 four times a day as needed for pain HYDROCODONE-ACETAMINOPHEN 48020054209 No Longer Activ e Good Julian MD Active KEFLEX 500 MG CAP 1 tab po tid CEPHALEXIN 602078 83043 No Longer Active Hira Moser APRN Active IBUPROFEN 800 MG TAB 1 pill three times daily as needed for pain IBUPROFEN 89110243462 No Longer Active Kalpesh Dong MD Active PROMETHAZINE-CODEINE 6.25-10 MG/5ML SYRP 1 tsp every 6 hrs prn c ough PROMETHAZINE-CODEINE 18071868686 No Longer Active Kalpesh Carr Active HYDROCODONE-ACETAMINOPHEN 5-325 MG TABS 1 tab by mouth every 6 hours as needed HYDROCODONE-ACETAMINOPHEN 47804740922 No Longer Activ e Shola MCGILL Active CEPHALEXIN 500 MG CAPS 1 PO bid x 7 days CEPHAL EXIN 13543885963 No Longer Active Shola MCGILL Active BACTRIM DS 800-160 MG TAB 1 tab by mouth twice daily 2 TRIMETHOPRIM-SULFAMETHOXAZOLE 06145162934 No Longer Active Kalpesh Dong MD Active HYDROCODONE-ACETAMINOPHEN 5-325 MG TABS 1 PO tid PRN pain 5 HYDROCODONE-ACETAMINOPHEN 51815332673 No Longer Active Abhinav Galvan MD Active IMPLANON 68 MG IMPL IMPLANTED IN LEFT ARM ETONO GESTREL 74373297080 No Longer Active Jillina Frazell UNDERGROUND [employer]ING SECTION FOREMAN Active AMOXICILLIN 500 MG TABS 2 tabs PO bid x 10 d AM OXICILLIN 32236782193 No Longer Active Kalpesh Dong MD Active LEVAQUIN 500 MG TABS 1 PO q day x 7 days LEVOFL OXACIN 21763191344 No Longer Active Shola MCGILL Active FIORICET 50-325-40 MG TABS 2 PO q 8 hrs PRN FOSTER [id number] Active Abdirahman Rios MD Active AMITRIPTYLINE HCL 25 MG TAB 1 tab by mouth daily 60 minutes before bedtime AMITRIPTYLINE HCL 14921331691 No Longer Active Shola MCGILL Active LORTAB 5 5-500 MG TABS 1/2 to 1 tablet by mouth go ry 6 hours as needed for pain HYDROCODONE-ACETAMINOPHEN 30202480259 No Longer Active Shola MCGILL Active CEPHALEXIN 500 MG TABS Take one by mouth four times daily, morning, noon, early evening and bedtime. CEPHALEXIN 85357934113 No Long er Active Jillherson Moser APRN Active TYLENOL/CODEINE #3 300-30 MG TAB 1-2 po q6hr PRN Pain ACETAMINOPHEN-CODEINE 54238081517 No Longer Active Edilberto Marino DO Active PRISTIQ 50 MG [id number] 1 po qd DESVENLAFAXI NE SUCCINATE 60835233766 No Longer Active Edilberto Marino DO Active PENICILLIN V POTASSIUM 500 MG TAB 1 four times a day 2 PENICILLIN V POTASSIUM 11916618464 No Longer Active Edilberto Marino DO Active DOXYCYCLINE HYCLATE 100 MG CAPS Take one (1) tablet by mouth twice a day DOXYCYCLINE HYCLATE 13221059948 No Longer Active Ronnie Galvan MD Active HYDROCODONE-ACETAMINOPHEN 5-325 MG TABS 1 po q 6hr PRN Pain 2011 HYDROCODONE-ACETAMINOPHEN 39811654147 No Longer Active Jerson Perez RN Active BACTRIM DS 800-160 MG TAB 1 tab by mouth twice daily 2 TRIMETHOPRIM-SULFAMETHOXAZOLE 81917044200 No Longer Active Kalpesh Dong MD Active LORTAB 5 5-500 MG TABS 1/2 to 1 tablet by mouth go ry 4 hours as needed for pain HYDROCODONE-ACETAMINOPHEN 12842163423 No Longer Active Kalpesh Dong MD Active GENERESS FE 0.8-25 MG-MCG CHEW Take one by mouth daily NORETHIN-ETH ESTRADIOL-FE 59104749128 No Longer Active Kalpesh Dong MD Active HYDROCODONE-ACETAMINOPHEN 7.5-500 MG TABS 1-2 every 4 hours as needed HYDROCODONE-ACETAMINOPHEN 85817204933 No Longer Activ e Kalpesh Dong MD Active FERROUS SULFATE 325 (65 FE) MG TABS 1 tablet by mouth twice yung y FERROUS SULFATE 33642421155 No Longer Active Kalpesh Dong MD Active IBUPROFEN 600 MG TAB 1 po q6-8hr PRN IBUPROFEN 85494793813 No Longer Active Kalpesh Dong MD Active SPIRONOLACTONE 25 MG TAB 1 tablet by mouth daily 01/22 SPIRONOLACTONE 66215836080 No Longer Active Kalpesh Dong MD Acti ve HYDROCODONE-ACETAMINOPHEN 7.5-325 MG TABS 1 po QID PRN Pain 2011 HYDROCODONE-ACETAMINOPHEN 57771464571 No Longer Active Kalpesh Dong MD Active CLINDAMYCIN HCL 300 MG CAPS 1 po q6hr x 7 days CLINDAMYCIN HCL 99560341814 No Longer Active Edilberto Marino DO Active PREDNISONE 20 MG TAB 2 tabs daily for 4 days, 1 t ab daily for 4 days, 1/2 tab daily for 4 days PREDNISONE 87675196340 No Longer Active Edilberto Marino DO Active PERCOCET 5-325 MG TABS 1 tablet by mouth every 6 hours as ne eded for pain OXYCODONE-ACETAMINOPHEN 11778286591 No Longer Active Abdirahman Rios MD Active VITAMINS TABS Take one by mouth daily MV & MIN W/FE-FA TABS 82183985382 No Longer Active Abdirahman Rios MD Active LUIS 3-0.02 MG TABS 1 tablet by mouth daily as directed DROSPIRENONE-ETHINYL ESTRADIOL 38732215591 No Longer Active Abdirahman Rios MD Active LORATADINE 10 MG TABS 1 tablet by mouth daily L ORATADINE 53250049224 No Longer Active Kalpesh Dong MD Active HYDROCODONE-ACETAMINOPHEN 5-325 MG TABS 1 po q 6hr PRN Pain 2010 HYDROCODONE-ACETAMINOPHEN 13629022835 No Longer Active Edilberto Marino DO Active BACTRIM DS 800-160 MG TAB 1 tab by mouth twice daily 2 TRIMETHOPRIM-SULFAMETHOXAZOLE 55843850399 No Longer Active Abdirahman Rios MD Active 28-0.8 MG TABS Take one by mouth daily 09/20 VIT-FE FUMARATE-FA 43069481840 No Longer Active Abdirahman Rios MD Active CIPRO 500 MG TAB 1 tablet by mouth twice daily CIPROFLOXACIN HCL 45557778621 No Longer Active Abdirahman Rios MD Active BENADRYL 25 MG CAP 1 po q8hr PRN Congestion DIPHENHYDRAMINE HCL 52590450628 No Longer Active Abdirahman Rios MD Active ZOLOFT 50 MG TAB 1 po qd SERTRALINE HCL 164266 01233 No Longer Active Abdirahman Rios MD Active AMOXICILLIN 875 MG TABS 1 tab by mouth twice daily 201 08/09/13 AMOXICILLIN 05360028201 No Longer Active Abdirahman Rios MD Activ e AMOXICILLIN 875 MG TABS 1 tab by mouth twice daily 201 07/19/27 AMOXICILLIN 38729188586 No Longer Active Abdirahman Rios MD Activ e BACTRIM DS 800-160 MG TAB 2 tab by mouth twice daily 2 TRIMETHOPRIM-SULFAMETHOXAZOLE 10076042882 No Longer Active Abdirahman Rios MD Active KEFLEX 500 MG CAP 1 po tid x 10 days CEPHALEXIN 05781818519 No Longer Active Abdirahman Rios MD Active AMOXICILLIN 875 MG TABS 1 tab by mouth twice daily 201 07/18/07 AMOXICILLIN 08412446686 No Longer Active Abdirahman Rios MD Activ e BACTRIM DS 800-160 MG TAB 2 tab by mouth twice daily 2 BACTRIM DS 800-160 MG TAB TRIMETHOPRIM-SULFAMETHOXAZOLE Inactive ZOLOFT 50 MG TAB 1 po qd ZOLOFT 50 MG TAB 3129 41 SERTRALINE HCL Inactive BENADRYL 25 MG CAP 1 po q8hr PRN Congestion BENADRYL 25 MG CAP [id number] DIPHENHYDRAMINE HCL Inactive 28-0.8 MG TABS Take one by mouth daily 09/20 28-0.8 MG TABS VIT-FE FUMARATE-FA Inactive HYDROCODONE-ACETAMINOPHEN 5-325 MG TABS 1 po q 6hr PRN Pain 2010 HYDROCODONE-ACETAMINOPHEN 5-325 MG TABS 032002 HYDROCODONE-ACETAMINOPHEN Inactive LORATADINE 10 MG TABS 1 tablet by mouth daily LORATADINE 10 MG TABS 797643 LORATADINE Inactive LUIS 3-0.02 MG TABS 1 tablet by mouth daily as directed LUIS 3-0.02 MG TABS DROSPIRENONE-ETHINYL ESTRADIOL Inactive VITAMINS TABS Take one by mouth daily VITAMINS TABS MV & MIN W/FE-FA TABS Inactive PERCOCET 5-325 MG TABS 1 tablet by mouth every 6 hours as ne eded for pain PERCOCET 5-325 MG TABS 6000160 OXYCODONE-ACETAMIN OPHEN Inactive PREDNISONE 20 MG TAB 2 tabs daily for 4 days, 1 t ab daily for 4 days, 1/2 tab daily for 4 days PREDNISONE 20 MG TAB 929931 PREDNISON E Inactive CLINDAMYCIN HCL 300 MG CAPS 1 po q6hr x 7 days CLINDAMYCIN HCL 300 MG CAPS 287678 CLINDAMYCIN HCL Inactive HYDROCODONE-ACETAMINOPHEN 7.5-325 MG TABS 1 po QID PRN Pain 2011 HYDROCODONE-ACETAMINOPHEN 7.5-325 MG TABS 998375 HYDROCODONE-ACETAMINOPHEN Inactive SPIRONOLACTONE 25 MG TAB 1 tablet by mouth daily 01/22 SPIRONOLACTONE 25 MG TAB 109443 SPIRONOLACTONE Inactive IBUPROFEN 600 MG TAB 1 po q6-8hr PRN IBUPROFEN 600 MG TAB 250161 IBUPROFEN Inactive FERROUS SULFATE 325 (65 FE) MG TABS 1 tablet by mouth twice yung y FERROUS SULFATE 325 (65 FE) MG TABS 211704 FERROUS SULF ATE Inactive HYDROCODONE-ACETAMINOPHEN 7.5-500 MG [...] PRN Pain 2011 HYDROCODONE-ACETAMINOPHEN 5-325 MG TABS 921195 HYDROCODONE-ACETAMINOPHEN Inactive DOXYCYCLINE HYCLATE 100 MG CAPS Take one (1) tablet by mouth twice a day DOXYCYCLINE HYCLATE 100 MG CAPS 980486 DOXYCYCLINE HYCLATE Inactive PENICILLIN V POTASSIUM 500 MG TAB 1 four times a day 2 PENICILLIN V POTASSIUM 500 MG TAB 363951 PENICILLIN V POTASSIUM Tabiona ctive PRISTIQ 50 MG [id number] 1 po qd PRISTIQ 50 MG [id number] DESVENLAFAXINE SUCCINATE Inactive TYLENOL/CODEINE #3 300-30 MG TAB 1-2 po q6hr PRN Pain TYLENOL/CODEINE #3 300-30 MG TAB 710296 ACETAMINOPHEN-CODEINE Inact krishna CEPHALEXIN 500 MG TABS Take one by mouth four times daily, morning, noon, early evening and bedtime. CEPHALEXIN 500 MG TABS 945729 CEPHALEXIN Inactive LORTAB 5 5-500 MG TABS 1/2 to 1 tablet by mouth go ry 6 hours as needed for pain LORTAB 5 5-500 MG TABS HYDROCODONE-A CETAMINOPHEN Inactive AMITRIPTYLINE HCL 25 MG TAB 1 tab by mouth daily 60 minutes before bedtime AMITRIPTYLINE HCL 25 MG TAB 834437 AMITRIPTYLINE HCL Inactive AMOXICILLIN 500 MG TABS 2 tabs PO bid x 10 d 7 AMOXICILLIN 500 MG TABS 147229 AMOXICILLIN Inactive IMPLANON 68 MG IMPL IMPLANTED IN LEFT ARM IMPLANON 68 MG IMPL ETONOGESTREL Inactive HYDROCODONE-ACETAMINOPHEN 5-325 MG TABS 1 PO tid PRN pain 5 HYDROCODONE-ACETAMINOPHEN 5-325 MG TABS 338852 HYDROCODONE-ACETAMIN OPHEN Inactive BACTRIM DS 800-160 MG TAB 1 tab by mouth twice daily 2 BACTRIM DS 800-160 MG TAB TRIMETHOPRIM-SULFAMETHOXAZOLE Inac tive CEPHALEXIN 500 MG CAPS 1 PO bid x 7 days CEPHALEXIN 500 MG CAPS 952103 CEPHALEXIN Inactive HYDROCODONE-ACETAMINOPHEN 5-325 MG TABS 1 tab by mouth every 6 hours as needed HYDROCODONE-ACETAMINOPHEN 5-325 MG TABS 231834 HYDROCODONE-ACETAMINOPHEN Inactive PROMETHAZINE-CODEINE 6.25-10 MG/5ML SYRP 1 tsp every 6 hrs prn c ough PROMETHAZINE-CODEINE 6.25-10 MG/5ML SYRP 185678 PROMETH AZINE-CODEINE Inactive IBUPROFEN 800 MG TAB 1 pill three times daily as needed for pain IBUPROFEN 800 MG TAB 036592 IBUPROFEN Inactive KEFLEX 500 MG CAP 1 tab po tid KEFLEX 500 MG CAP 465832 CEPHALEXIN Inactive HYDROCODONE-ACETAMINOPHEN 7.5-325 MG TABS 1 four times a day as needed for pain HYDROCODONE-ACETAMINOPHEN 7.5-325 MG TABS 651043 HYDROCODONE-ACETAMINOPHEN Inactive BACTRIM DS 800-160 MG TABS by mouth twice a day 11/05 BACTRIM DS 800-160 MG TABS SULFAMETHOXAZOLE-TRIMETHOPRIM Inactive IBUPROFEN 800 MG TABS 1 tid prn IBUPROFEN 800 MG TABS 415033 IBUPROFEN Inactive ENDOCET 10-325 MG TABS 1 q 6 hr prn ENDOC ET 10-325 MG TABS 2823823 OXYCODONE-ACETAMINOPHEN Inactive HYDROCODONE-ACETAMINOPHEN 7.5-325 MG TABS 1 by mouth e very 6 hours as needed for pain HYDROCODONE-ACETAMINOPHEN 7.5-325 MG TABS 468365 HYDROCODONE-ACETAMINOPHEN Inactive PERCOCET 7.5-325 MG TABS 1 PO q 8 hrs PRN pain PERCOCET 7.5-325 MG TABS 4919852 OXYCODONE-ACETAMINOPHEN Inactive LIDODERM 5 % PTCH One patch to painful area [place] N. On for 12 hrs, off for 12 hrs. LIDODERM 5 % PTCH 7791940 LIDOCAINE Inactiv e PERCOCET 7.5-325 MG TABS 1 PO tid PRN pain PERCOCET 7.5- 325 MG TABS 1810291 OXYCODONE-ACETAMINOPHEN Inactive MOBIC 15 MG TABS 1 tab daily MOBIC 15 MG TABS 15 2695 MELOXICAM Inactive CYCLOBENZAPRINE HCL 10 MG TABS 1/2 - 1 tab PO tid PRN back p ain, muscle spasm CYCLOBENZAPRINE HCL 10 MG TABS 078383 CYCLOBENZA JOSEPH HCL Inactive LORATADINE 10 MG TABS 1 tablet by mouth daily LORATADINE 10 MG TABS 873675 LORATADINE Inactive HYDROCODONE-ACETAMINOPHEN 10-325 MG TABS 1 by mouth ev chaka 8 hours as needed for pain HYDROCODONE-ACETAMINOPHEN 10-325 MG TABS 714533 HYDROCODONE-ACETAMINOPHEN Inactive LC-5 LIDOCAINE 5 % CREA apply 1 time daily to affected area 2013 LC-5 LIDOCAINE 5 % CREA LIDOCAINE (ANORECTAL) In active PERCOCET 5-325 MG TAB 1 every 6 hours as needed PERCOCET 5-325 MG TAB 5734598 OXYCODONE-ACETAMINOPHEN Inactive KEFLEX 500 MG CAP 1 po qid KEFLEX 500 MG CAP 30 9114 CEPHALEXIN Inactive PROAIR HFA 108 (90 BASE) MCG/ACT AERS 2 puff q 4-6 hrs PRN 01/24 PROAIR HFA 108 (90 BASE) MCG/ACT AERS ALBUTEROL SULFATE Inactive AMOXICILLIN 875 MG TABS 1 tab by mouth twice daily 201 07/18/07 AMOXICILLIN 875 MG TABS 427618 AMOXICILLIN Inactive KEFLEX 500 MG CAP 1 po tid x 10 days KEFLEX 500 MG CAP 168531 CEPHALEXIN Inactive AMOXICILLIN 875 MG TABS 1 tab by mouth twice daily 201 07/19/27 AMOXICILLIN 875 MG TABS 119408 AMOXICILLIN Inactive AMOXICILLIN 875 MG TABS 1 tab by mouth twice daily 201 08/09/13 AMOXICILLIN 875 MG TABS 983745 AMOXICILLIN Inactive CIPRO 500 MG TAB 1 tablet by mouth twice daily CIPRO 500 MG TAB 275883 CIPROFLOXACIN HCL Inactive BACTRIM DS 800-160 MG TAB 1 tab by mouth twice daily 2 BACTRIM DS 800-160 MG TAB TRIMETHOPRIM-SULFAMETHOXAZOLE Inac tive LEVAQUIN 500 MG TABS 1 PO q day x 7 days LEVAQUIN 500 MG TABS 815440 LEVOFLOXACIN Inactive CLINDAMYCIN HCL 300 MG CAPS 1 po QID x 7 days CLINDAMYCIN HCL 300 MG CAPS 870184 CLINDAMYCIN HCL Inactive AUGMENTIN 875-125 MG TAB 1 tab by mouth twice daily with food 20 22/05/07 AUGMENTIN 875-125 MG TAB 616943 AMOXICILLIN-POT CLAVULA [place] Inactive DIFLUCAN 150 MG TAB 1 qODay x 2 doses DIFLUCAN 150 MG TAB 369238 FLUCONAZOLE Inactive PREDNISONE 20 MG TAB 2 tabs daily for 3 days, 1 t ab daily for 3 days, 1/2 tab daily for 2 days PREDNISONE 20 MG TAB 045781 PREDNISON E Inactive Advance Directives Directive Description Start Date PERMISSION TO SHARE Immunizations Vaccine Administration Date Value Standard Alf cription Seasonal influenza vaccine, injectable, containing preservative, for > 3 years old (Afluria, FluLaval, Fluzone, Fluvirin, Fluarix, Agriflu(>= 18 yo)) Fluzone (>3 yrs.) [[id number]] Influenza, seasonal, inject able Seasonal influenza vaccine, injectable, preservative free, for > 3 years old (Afluria, FluLaval, Fluzone, Fluvirin, Fluarix, Agriflu(>= 18 yo)) Fluzone preservative free (>3 yrs.) [[id number]] Influenza, seasonal, injectable, preservative free Seasonal influenza vaccine, injectable, containing preservative, for > 3 years old (Afluria, FluLaval, Fluzone, Fluvirin, Fluarix, Agriflu(>= 18 yo)) Fluzone (>3 yrs.) [[id number]] Influenza, seasonal, inject able Seasonal influenza vaccine, injectable, containing preservative, for > 3 years old (Afluria, FluLaval, Fluzone, Fluvirin, Fluarix, Agriflu(>= 18 yo)) Fluzone (>3 yrs.) [SVK005] Influenza, seasonal, inject able dT (Diphtheria and [...] negative Encounters Code Encounter Date Provider Facility CPT-48760 Level 2 Est. Patient 07:49:32 CDT Kalpesh goins MD [facility] CPT-90380 Level 3 New Patient 15:47:11 SHIP WASHER Bj huber MD [facility] CPT-37902 Level 4 Est. Patient 14:37:38 SHIP WASHER Abdirahman Rios MD [facility] CPT-42466 Level 2 Est. Patient 13:32:17 SHIP WASHER Kalpesh goins MD [facility] CPT-05357 Level 3 Est. Patient 17:32:57 SHIP WASHER Edilberto tiwari DO [facility] CPT-18808 Level 3 Est. Patient 17:22:33 SHIP WASHER Edilberto tiwari DO [facility] CPT-94211 Level 2 Est. Patient 16:57:09 SHIP WASHER Kalpesh goins MD [facility] CPT-52112 Level 3 Est. Patient 14:03:08 SHIP WASHER Abdirahman Rios MD [facility] CPT-54581 Level 3 Est. Patient 18:12:34 CDT Shola Wright [facility] CPT-10149 Level 3 Est. Patient 19:34:46 CDT Shola Wright [facility] CPT-70065 Level 3 Est. Patient 14:19:37 CDT Abdirahman Rios MD [facility] CPT-88433 Level 3 Est. Patient 14:11:58 CDT Kalpesh goins MD [facility] CPT-95652 Level 3 Est. Patient 16:50:00 [facility] Level 3 Est. Patient 17:11:32 SHIP WASHER Brandie bates MD, PhD [facility] CPT-82992 Level 3 Est. Patient 16:31:47 SHIP WASHER Shola Wright [facility] CPT-50957 Level 3 Est. Patient 17:51:10 SHIP WASHER Abhinav Galvan MD [facility] CPT-95944 Level 4 Est. Patient 12:54:56 SHIP WASHER Kalpesh goins MD [facility] CPT-85840 Level 4 Est. Patient 12:53:56 SHIP WASHER Kalpesh goins MD [facility] CPT-98853 Level 3 Est. Patient 17:56:58 CDT Shola Wright [facility] CPT-99401 Level 3 Est. Patient 14:26:20 CDT Janak butcher [facility] CPT-83921 Level 3 Est. Patient 09:38:41 CDT Shola MCGILL [facility] CPT-74833 Level 3 Est. Patient 14:45:26 CDT Edilberto tiwari [facility] CPT-72100 Level 3 Est. Patient 10:51:33 [facility] Est. Patient 11:57:55 SHIP WASHER Shola MCGILL [facility] CPT-88724 Level 3 Est. Patient 09:53:33 SHIP WASHER Edilberto tiwari [facility] CPT-89464 Level 3 Est. Patient 14:42:54 SHIP WASHER Abhinav Galvan MD [facility]-75773 Level 3 Est. Patient 15:10:02 CDT Janak Stevenamira butcher [facility] CPT-64148 Level 3 Est. Patient 15:20:20 CDT Theo dennis MD [facility] CPT-86231 Level 2 Est. Patient 14:08:57 CDT Kalpesh goins MD [facility]-09426 Level 3 Est. Patient 13:56:19 CDT Abdirahman Rios MD [facility] CPT-66796 Level 3 Est. Patient 13:59:37 CDT Abdirahman Rios MD [facility] CPT-97458 Level 2 Est. Patient 14:44:59 CDT Kalpesh goins MD [facility] CPT-17687 Level 3 Est. Patient 06:06:23 CDT Edilberto tiwari [facility] CPT-07632 Level 3 Est. Patient 15:23:54 CDT Abdirahman Rios MD [facility] CPT-76907 Level 3 Est. Patient 15:43:49 CDT Abdirahman Rios MD [facility] CPT-13060 Level 3 Est. Patient 12:46:47 SHIP WASHER Abdirahman Rios MD [facility] CPT-31605 Level 3 Est. Patient 08:13:35 SHIP WASHER Abdirahman Rios MD [facility] CPT-62244 Level 2 Est. Patient 09:36:42 SHIP WASHER Abdirahman Rios MD [facility] CPT-70472 Level 3 Est. Patient 10:56:43 CDT Abdirahman Rios MD [facility] CPT-93958 Level 3 Est. Patient 18:24:52 CDT Abdirahman Rios MD [facility] CPT-19011 Level 3 Est. Patient 13:27:22 CDT Abdirahman Rios MD [facility] Procedures Code Procedure Name Date Entry Date Standard Desc ription CPT-96400 Postop F/U Visit 15:02:46 CDT CPT-18880 Postop F/U Visit 11:29:00 SHIP WASHER CPT-J0696 Rocephin 1000 mg (Ceftriaxone) 17:22:33 SHIP WASHER CPT-52545 Postop F/U Visit 18:41:07 SHIP WASHER CPT-98019 Postop F/U Visit 08:19:08 SHIP WASHER CPT-48820 Immunization Single Admin 16:41:53 CDT 2013 CPT-67468 Fluzone Quadrivalent Intramuscular Suspe nsion 0.5 ML 16:41:53 CDT CPT-OV Office Visit 16:39:18 CDT CPT-OV Office Visit 16:16:36 CDT CPT-OV Office Visit 15:34:48 CDT CPT-61675 Postop F/U Visit 14:50:12 CDT CPT-57722 Postop F/U Visit 14:41:10 CDT CPT-59939 Venipuncture Draw Fee 11:38:04 SHIP WASHER CPT-69735 Postop F/U Visit 19:02:59 SHIP WASHER CPT-24617 Postop F/U Visit 12:04:54 SHIP WASHER CPT-76547 Administration single or combination vac cine inc oral 15:56:43 CDT CPT-84875 Influenza split virus > age 3 15:56:43 CDT CPT-18967 Hand comp min 3V 14:25:19 CDT CPT-84185 Postop F/U Visit 21:40:51 CDT CPT-97172 Postop F/U Visit 10:58:43 CDT CPT-55190 Administration single or combination vac cine inc oral 12:33:54 SHIP WASHER CPT-31904 Influenza Preservative Free split virus >age 3 12:33:54 SHIP WASHER CPT-40285 Administration single or combination vac cine inc oral 09:30:51 CDT CPT-11720 Influenza split virus > age 3 09:30:51 CDT CPT-33985 Postop F/U Visit 15:14:53 CDT CPT-94041 Postop F/U Visit 13:50:14 CDT CPT-37017 Postop F/U Visit 13:34:52 CDT CPT-OV Office Visit 16:55:03 CDT CPT-53807 Dix of cervix w bx ECC 13:32:50 CDT 10/19 CPT-J1885 Toradol 60 mg (Ketorolac) 15:31:59 CDT 2011 CPT-J1885 Toradol 60 mg (Ketorolac) 15:23:54 CDT 2011 CPT-78613 Visit 11:34:37 SHIP WASHER CPT-89206 Visit 10:52:39 SHIP WASHER CPT-43323 Visit 10:12:02 SHIP WASHER CPT-85160 Visit 11:22:43 SHIP WASHER CPT-28740 Visit 11:24:12 SHIP WASHER CPT-19066 Visit 10:47:05 SHIP WASHER CPT-OV Office Visit 10:26:16 SHIP WASHER CPT-OV Office Visit 15:34:31 SHIP WASHER CPT-88680 Visit 10:42:08 SHIP WASHER CPT-65576 Visit 10:52:45 SHIP WASHER CPT-000 Give Appropriate Flu Vaccine 16:56:41 CDT 2 CPT-65554 Administration single or combination vac cine inc oral 10:33:21 CDT CPT-05974 Influenza split virus > age 3 10:33:21 CDT CPT-99935 Visit 13:23:09 CDT CPT-45159 Visit 18:24:52 CDT CPT-88999 Sono OB comp > 14 weeks 12:07:49 CDT 04/07
--- OUTSIDE RECORDS SUMMARY | 2020-01-18 16:04 | XMS REPORT | Clinical Summary ---
Author Author Avery, Jeri Rashid Organization [facility] Address Unknown Phone Unavailable Allergies, Adverse Reactions, Alerts Allergy Name Reaction Description Start Date Severity Status Pr ovider TORADOL Rash Severe Active Rajnicristina COLORADO RN BACTRIM Critical Active Kalpesh Dong MD ZITHROMAX rash all over Critical Active Darya H aubrey LATEX rash Moderate Active Daryamikhail Ramseyyana man Conditions or Problems Problem Name Problem [...] unspecified SINUSITIS, ACUTE 461.9 Active Rajni Alcazar BILLET SHEARER Acute sinusitis, unspecified BACK PAIN 724.5 Resolved [...] ICD-597.80 Inactive Good melchor MD ABSCESS ICD-682.9 Jose M collier MD PHARYNGITIS ICD-462 Inactive Good melchor MD HEALTH SCREENING ICD-V70.0 Jose M Julian MD EXAMINATION, NORMAL ICD-V24.2 Inact krishna Good Julian MD FAMILY PLANNING ICD-V25.09 Jose M Julian MD 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 Stormy Julian MD ENCOUNTER FOR THERAPEUTIC DRUG MONITORING ICD-V58.83 Jose M Julian MD AMENORRHEA ICD-626.0 Jose M sierra [...] 6 hours as needed for pain HYDROCODONE-ACETAMINOPHEN 35504907123 No Longer Active Kalpesh Dong MD Active PERCOCET 10-325 MG ORAL TABS 1 every 4 hous as needed OXYCODONE-ACETAMINOPHEN 76499277859 Active Abdirahman Rios MD Active GLYDO 2 % EXT GEL apply to painful areas as needed LIDOCAINE HCL 51629910316 Active Kalpesh Dong MD Active LC-4 LIDOCAINE 4 % EXT CREA apply to painful area every 12 h ours or as needed LIDOCAINE 25686394196 Active Kalpesh Dong MD Active AUGMENTIN 875-125 MG TAB 1 tab by mouth twice daily with food 20 23/05/16 AMOXICILLIN-POT CLAVULANATE 88946224201 No Longer Active Lizeth hi Yokum BILLET SHEARER 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 FLUTICASONE PROPIONATE 32043526924 No Longer Ac tive Rajni Yokum BILLET SHEARER Active PERCOCET 10-325 MG ORAL TABS take 1 tab by mouth q 4hours as needed for pain OXYCODONE-ACETAMINOPHEN 21218132942 No Longer Active Rajni Yokum BILLET SHEARER Active PERCOCET 10-325 MG ORAL TABS one every 6 hours prn pain OXYCODONE-ACETAMINOPHEN 46742470807 No Longer Active Rajni Yokum BILLET SHEARER Active IBUPROFEN 800 MG TABS 1 tab po tid, with food I BUPROFEN 24736513528 Active Karenina Joyzell BILLET SHEARER Active PERCOCET 10-325 MG TABS 1 tablet every 8 hours as needed for pain 2 OXYCODONE-ACETAMINOPHEN 85022659389 Active Rajni Yokum BILLET SHEARER Active DICLOFENAC SODIUM 50 MG TBEC 1 tablet by mouth four times da tom PRN Pain DICLOFENAC SODIUM 56332641981 No Longer Active Rajni Yokum BILLET SHEARER Active VIIBRYD 10 & 20 & 40 MG KIT 1 po qd as directed 07/24 VILAZODONE HCL 96618404654 No Longer Active Rajni Yokum BILLET SHEARER Active ONDANSETRON 4 MG TBDP 1 q4h PRN nausea ONDANSET KELBY 35683203214 No Longer Active Rajni Yokum BILLET SHEARER Active PERCOCET 10-325 MG TABS 1 tablet every 8 hours as needed for antonia n OXYCODONE-ACETAMINOPHEN 87936844641 No Longer Active Rajni cox BILLET SHEARER Active HYDROCODONE-ACETAMINOPHEN 5-325 MG TABS 1 po TID PRN Pain 9 HYDROCODONE-ACETAMINOPHEN 24801898015 No Longer Active Abdirahman Rios MD Active LC-4 LIDOCAINE 4 % EXT CREA apply q 6 hours, prn LIDOCAINE 50249495469 Active Hira Joyjanee BILLET SHEARER Active RNDEGBIRDR-EBE-SVCUECQD 50-325-40 MG ORAL CAPS 1-2 po TID SD N Headache [id number] 74482179979 No Longer Act krishna Kalpesh Dong MD Active ALPRAZOLAM 0.5 MG TABS 1 po BID PRN Anxiety ALP RAZOLAM 89084365518 No Longer Active Kalpesh Dong MD Active TRAZODONE HCL 100 MG TAB 0.5 to 1 po qHS PRN Insomnia TRAZODONE HCL 43546572931 No Longer Active Kalpesh Dong MD Activ e HYDROCODONE-ACETAMINOPHEN 5-325 MG TABS 1 po q6hr PRN Pain 04/09 HYDROCODONE-ACETAMINOPHEN 43859082085 No Longer Active Kalpesh Dong MD Active CYMBALTA 30 MG CPEP 1 cap by mouth daily DULOXE CLEO HCL 94893997601 No Longer Active Abdirahman Rios MD Active IBUPROFEN 600 MG ORAL TABS 1 by mouth twice a day 2014 IBUPROFEN 58363753225 No Longer Active Abdirahman Rios MD Activ e PERCOCET 5-325 MG TAB 1 tab po q 6 hours, prn severe pain 1 OXYCODONE-ACETAMINOPHEN 63735052049 No Longer Active Abdirahman Rios MD Active SPRINTEC 28 0.25-35 MG-MCG TABS 1 pill by mouth daily for bi rth control NORGESTIMATE-ETH ESTRADIOL 05381518923 No Longer Acti ve Hira Moser BILLET SHEARER Active CYCLOBENZAPRINE HCL 10 MG TABS 1 tablet by mouth three times daily as needed for muscle spasm/pain CYCLOBENZAPRINE HCL 00591408039 No Longer Active Hira Moser BILLET SHEARER Active HYDROCODONE-ACETAMINOPHEN 5-325 MG TABS 1 po q6hr PRN Pain 03/09 HYDROCODONE-ACETAMINOPHEN 84125080196 No Longer Active Matthewllina Karmen l BILLET SHEARER Active AUGMENTIN 500-125 MG ORAL TABS 1 by mouth twice a day AMOXICILLIN-POT CLAVULANATE 61578333590 No Longer Active Matthewllina Karmenl BILLET SHEARER Active DICLOFENAC SODIUM 50 MG TBEC 1 tablet by mouth four times da tom PRN Pain DICLOFENAC SODIUM 96706068032 No Longer Active Karenin a Shanti BILLET SHEARER Active PROMETHAZINE HCL 25 MG TABS 1 four times a day as needed for nausea/vomiting PROMETHAZINE HCL 13128579342 No Longer Active Abdirahman Rios MD Active HYDROCODONE-ACETAMINOPHEN 5-325 MG TABS 1 tab by mouth every 6 hours as needed PRN Pain HYDROCODONE-ACETAMINOPHEN 72905482841 No Longer Active Abdirahman Rios MD Active GEMFIBROZIL 600 MG TABS 1 po BID GEMFIBROZIL 19037229 005 Active Abdirahman Rios MD Active PERCOCET 5-325 MG ORAL TABS 1 every 6 hours as needed OXYCODONE-ACETAMINOPHEN 20647097671 No Longer Active Abdirahman Rios MD Active PERCOCET 5-325 MG TAB 1 tab po q 6 -8 hours, prn for severe pain OXYCODONE-ACETAMINOPHEN 91471124855 No Longer Active Abdirahman Rios MD Active HYDROCODONE-ACETAMINOPHEN 5-325 MG TABS 1 po q6hr PRN pain 06/30 HYDROCODONE-ACETAMINOPHEN 41484852954 No Longer Active Hira roman BILLET SHEARER Active GLUCOPHAGE 500 MG ORAL TABS one by mouth 3 times a day METFORMIN HCL 47535906928 No Longer Active Karenina Shanti BILLET SHEARER Ac tive PERCOCET 10-325 MG TABS 1 tab by mouth every 6 hours , use sparingly for severe pain OXYCODONE-ACETAMINOPHEN 85060983324 No Longer A ctive Abdirahman Rios MD Active EMLA 2.5-2.5 % EXT CREA apply to skin lesion q 6 hours, prn 2014 LIDOCAINE-PRILOCAINE 94588468692 No Longer Active Abdirahman Rios MD Active PERCOCET 10-325 MG ORAL TABS 1 every 4 hours as needed OXYCODONE-ACETAMINOPHEN 74392838655 No Longer Active Abdirahman Rios MD Active AUGMENTIN 875-125 MG TAB 1 tab by mouth twice daily with food 20 21/10/13 AMOXICILLIN-POT CLAVULANATE 98384477528 No Longer Active Ursula Moser APRN Active PROAIR HFA 108 (90 BASE) MCG/ACT AERS 2 puff q 4-6 hrs PRN 01/24 ALBUTEROL SULFATE 51702699717 No Longer Active Kalpesh Dong MD Active PREDNISONE 20 MG TAB 2 tabs daily for 3 days, 1 t ab daily for 3 days, 1/2 tab daily for 2 days PREDNISONE 89925511765 No Longer Active Abdirahman Rios MD Active KEFLEX 500 MG CAP 1 po qid CEPHALEXIN 657879591 20 No Longer Active Kalpesh Dong MD Active PERCOCET 5-325 MG TAB 1 every 6 hours as needed OXYCODONE-ACETAMINOPHEN 61442167252 No Longer Active Shola MCGILL Active LC-5 LIDOCAINE 5 % CREA apply 1 time daily to affected area 2013 LIDOCAINE (ANORECTAL) 78596662144 No Longer Active Hira muniz APRN Active HYDROCODONE-ACETAMINOPHEN 10-325 MG TABS 1 by mouth ev chaka 8 hours as needed for pain HYDROCODONE-ACETAMINOPHEN 78701709293 No Longer Active Jillina Frazell BILLET SHEARER Active LORATADINE 10 MG TABS 1 tablet by mouth daily L ORATADINE 11732460649 No Longer Active Jillina Frazell BILLET SHEARER Active DIFLUCAN 150 MG TAB 1 qODay x 2 doses FLUCONAZO LE 90719319087 No Longer Active Jillina Frazell BILLET SHEARER Active CYCLOBENZAPRINE HCL 10 MG TABS 1/2 - 1 tab PO tid PRN back p ain, muscle spasm CYCLOBENZAPRINE HCL 23683057531 No Longer Active Karen siri Frazell BILLET SHEARER Active AUGMENTIN 875-125 MG TAB 1 tab by mouth twice daily with food 20 22/05/07 AMOXICILLIN-POT CLAVULANATE 44051362601 No Longer Active Loida Rios MD Active MOBIC 15 MG TABS 1 tab daily MELOXICAM 246252870 14 No Longer Active Abdirahman Rios MD Active PERCOCET 7.5-325 MG TABS 1 PO tid PRN pain OXYCODONE-ACETAMINOPHEN 65229508446 No Longer Active Abdirahman Rios MD Active LIDODERM 5 % PTCH One patch to painful area SD N. On for 12 hrs, off for 12 hrs. LIDOCAINE 27757499071 No Longer Active Abdirahman Rios MD Active PERCOCET 7.5-325 MG TABS 1 PO q 8 hrs PRN pain OXYCODONE-ACETAMINOPHEN 27007891779 No Longer Active Shola MCGILL Active HYDROCODONE-ACETAMINOPHEN 7.5-325 MG TABS 1 by mouth e very 6 hours as needed for pain HYDROCODONE-ACETAMINOPHEN 04051392678 No Longer Active Good Julian MD Active CLINDAMYCIN HCL 300 MG CAPS 1 po QID x 7 days CLINDAMYCIN HCL 42095409331 No Longer Active Abdirahman Rios MD Activ e BACTRIM DS 800-160 MG TABS 1 po BID x 7 days 5 SULFAMETHOXAZOLE-TRIMETHOPRIM 55136151054 No Longer Active Abdirahman Rios MD Active ENDOCET 10-325 MG TABS 1 q 6 hr prn OXYCODONE-ACETAMINOPHEN 71023710386 No Longer Active Abdirahman Rios MD Active IBUPROFEN 800 MG TABS 1 tid prn IBUPROFEN 223246 63288 No Longer Active Abdirahman Rios MD Active BACTRIM DS 800-160 MG TABS by mouth twice a day 11/05 SULFAMETHOXAZOLE-TRIMETHOPRIM 91046096930 No Longer Active Good Julian MD Active HYDROCODONE-ACETAMINOPHEN 7.5-325 MG TABS 1 four times a day as needed for pain HYDROCODONE-ACETAMINOPHEN 99505601549 No Longer Activ e Good Julian MD Active KEFLEX 500 MG CAP 1 tab po tid CEPHALEXIN 210954 28249 No Longer Active Hira Moser APRN Active IBUPROFEN 800 MG TAB 1 pill three times daily as needed for pain IBUPROFEN 56025481391 No Longer Active Kalpesh Dong MD Active PROMETHAZINE-CODEINE 6.25-10 MG/5ML SYRP 1 tsp every 6 hrs prn c ough PROMETHAZINE-CODEINE 61301448114 No Longer Active Kalpesh Carr Active HYDROCODONE-ACETAMINOPHEN 5-325 MG TABS 1 tab by mouth every 6 hours as needed HYDROCODONE-ACETAMINOPHEN 53440233349 No Longer Activ e Shloa MCGILL Active CEPHALEXIN 500 MG CAPS 1 PO bid x 7 days CEPHAL EXIN 54051922459 No Longer Active Shola MCGILL Active BACTRIM DS 800-160 MG TAB 1 tab by mouth twice daily 2 TRIMETHOPRIM-SULFAMETHOXAZOLE 22670012813 No Longer Active Kalpesh Dong MD Active HYDROCODONE-ACETAMINOPHEN 5-325 MG TABS 1 PO tid PRN pain 5 HYDROCODONE-ACETAMINOPHEN 76083731948 No Longer Active Abhinav Galvan MD Active IMPLANON 68 MG IMPL IMPLANTED IN LEFT ARM ETONO GESTREL 51243098486 No Longer Active Hira Moser APRN Active AMOXICILLIN 500 MG TABS 2 tabs PO bid x 10 d AM OXICILLIN 10091635478 No Longer Active Kalpesh Dong MD Active LEVAQUIN 500 MG TABS 1 PO q day x 7 days LEVOFL OXACIN 52182588284 No Longer Active Shola MCGILL Active AMITRIPTYLINE HCL 25 MG TAB 1 tab by mouth daily 60 minutes before bedtime AMITRIPTYLINE HCL 53510371743 No Longer Active Shola MCGILL Active LORTAB 5 5-500 MG TABS 1/2 to 1 tablet by mouth go ry 6 hours as needed for pain HYDROCODONE-ACETAMINOPHEN 47590211156 No Longer Active Shola MCGILL Active CEPHALEXIN 500 MG TABS Take one by mouth four times daily, morning, noon, early evening and bedtime. CEPHALEXIN 56219005909 No Long er Active Hira Moser APRN Active TYLENOL/CODEINE #3 300-30 MG TAB 1-2 po q6hr PRN Pain ACETAMINOPHEN-CODEINE 29961641357 No Longer Active Edilberto Marino DO Active PRISTIQ 50 MG [id number] 1 po qd DESVENLAFAXI NE SUCCINATE 11006712452 No Longer Active Edilberto Marino DO Active PENICILLIN V POTASSIUM 500 MG TAB 1 four times a day 2 PENICILLIN V POTASSIUM 40923061796 No Longer Active Edilberto Marnio DO Active DOXYCYCLINE HYCLATE 100 MG CAPS Take one (1) tablet by mouth twice a day DOXYCYCLINE HYCLATE 93403596455 No Longer Active Ronnie Galvan MD Active HYDROCODONE-ACETAMINOPHEN 5-325 MG TABS 1 po q 6hr PRN Pain 2011 HYDROCODONE-ACETAMINOPHEN 02549083465 No Longer Active Patri joan Perez RN Active BACTRIM DS 800-160 MG TAB 1 tab by mouth twice daily 2 TRIMETHOPRIM-SULFAMETHOXAZOLE 39049478641 No Longer Active Kalpesh Dong MD Active LORTAB 5 5-500 MG TABS 1/2 to 1 tablet by mouth go ry 4 hours as needed for pain HYDROCODONE-ACETAMINOPHEN 69900436123 No Longer Active Kalpesh Dong MD Active GENERESS FE 0.8-25 MG-MCG CHEW Take one by mouth daily NORETHIN-ETH ESTRADIOL-FE 19512523192 No Longer Active Kalpesh Dong MD Active HYDROCODONE-ACETAMINOPHEN 7.5-500 MG TABS 1-2 every 4 hours as needed HYDROCODONE-ACETAMINOPHEN 22030790950 No Longer Activ e Kalpesh Dong MD Active FERROUS SULFATE 325 (65 FE) MG TABS 1 tablet by mouth twice yung y FERROUS SULFATE 30572632260 No Longer Active Kalpesh Dong MD Active IBUPROFEN 600 MG TAB 1 po q6-8hr PRN IBUPROFEN 37017970867 No Longer Active Kalpesh Dong MD Active SPIRONOLACTONE 25 MG TAB 1 tablet by mouth daily 01/22 SPIRONOLACTONE 64413326968 No Longer Active Kalpesh Dong MD Acti ve HYDROCODONE-ACETAMINOPHEN 7.5-325 MG TABS 1 po QID PRN Pain 2011 HYDROCODONE-ACETAMINOPHEN 62651183816 No Longer Active Kalpesh Dong MD Active CLINDAMYCIN HCL 300 MG CAPS 1 po q6hr x 7 days CLINDAMYCIN HCL 73835335257 No Longer Active Edilberto Marino DO Active PREDNISONE 20 MG TAB 2 tabs daily for 4 days, 1 t ab daily for 4 days, 1/2 tab daily for 4 days PREDNISONE 36752174074 No Longer Active Edilberto Marino DO Active PERCOCET 5-325 MG TABS 1 tablet by mouth every 6 hours as ne eded for pain OXYCODONE-ACETAMINOPHEN 32934846883 No Longer Active Abdirahman Rios MD Active VITAMINS TABS Take one by mouth daily MV & MIN W/FE-FA TABS 29390240986 No Longer Active Abdirahman Rios MD Active LUIS 3-0.02 MG TABS 1 tablet by mouth daily as directed DROSPIRENONE-ETHINYL ESTRADIOL 09192236728 No Longer Active Abdirahman Rios MD Active LORATADINE 10 MG TABS 1 tablet by mouth daily L ORATADINE 35491607326 No Longer Active Kalpesh Dong MD Active HYDROCODONE-ACETAMINOPHEN 5-325 MG TABS 1 po q 6hr PRN Pain 2010 HYDROCODONE-ACETAMINOPHEN 52489593578 No Longer Active Edilberto Marino DO Active BACTRIM DS 800-160 MG TAB 1 tab by mouth twice daily 2 TRIMETHOPRIM-SULFAMETHOXAZOLE 80860504881 No Longer Active Abdirahman Rios MD Active 28-0.8 MG TABS Take one by mouth daily 09/20 VIT-FE FUMARATE-FA 99177392625 No Longer Active Abdirahman Rios MD Active CIPRO 500 MG TAB 1 tablet by mouth twice daily CIPROFLOXACIN HCL 07676599358 No Longer Active Abdirahman Rios MD Active BENADRYL 25 MG CAP 1 po q8hr PRN Congestion DIPHENHYDRAMINE HCL 71235830095 No Longer Active Abdirahman Rios MD Active ZOLOFT 50 MG TAB 1 po qd SERTRALINE HCL 791101 09135 No Longer Active Abdirahman Rios MD Active AMOXICILLIN 875 MG TABS 1 tab by mouth twice daily 201 08/09/13 AMOXICILLIN 08234965480 No Longer Active Abdirahman Rios MD Activ e AMOXICILLIN 875 MG TABS 1 tab by mouth twice daily 201 07/19/27 AMOXICILLIN 37185210613 No Longer Active Abdirahman Rios MD Activ e BACTRIM DS 800-160 MG TAB 2 tab by mouth twice daily 2 TRIMETHOPRIM-SULFAMETHOXAZOLE 72184630125 No Longer Active Abdirahman Rios MD Active KEFLEX 500 MG CAP 1 po tid x 10 days CEPHALEXIN 50892761208 No Longer Active Abdirahman Rios MD Active AMOXICILLIN 875 MG TABS 1 tab by mouth twice daily 201 07/18/07 AMOXICILLIN 19402464412 No Longer Active Abdirahman Rios MD Activ e BACTRIM DS 800-160 MG TAB 2 tab by mouth twice daily 2 BACTRIM DS 800-160 MG TAB 248645 TRIMETHOPRIM-SULFAMETHOXAZOLE Inactive ZOLOFT 50 MG TAB 1 po qd ZOLOFT 50 MG TAB 3129 41 SERTRALINE HCL Inactive BENADRYL 25 MG CAP 1 po q8hr PRN Congestion BENADRYL 25 MG CAP 7908681 DIPHENHYDRAMINE HCL Inactive 28-0.8 MG TABS Take one by mouth daily 09/20 28-0.8 MG TABS VIT-FE FUMARATE-FA Inactive HYDROCODONE-ACETAMINOPHEN 5-325 MG TABS 1 po q 6hr PRN Pain 2010 HYDROCODONE-ACETAMINOPHEN 5-325 MG TABS 101862 HYDROCODONE-ACETAMINOPHEN Inactive LORATADINE 10 MG TABS 1 tablet by mouth daily LORATADINE 10 MG TABS 885985 LORATADINE Inactive LUIS 3-0.02 MG TABS 1 tablet by mouth daily as directed LUIS 3-0.02 MG TABS 515943 DROSPIRENONE-ETHINYL ESTRADIOL Inactive VITAMINS TABS Take one by mouth daily VITAMINS TABS MV & MIN W/FE-FA TABS Inactive PERCOCET 5-325 MG TABS 1 tablet by mouth every 6 hours as ne eded for pain PERCOCET 5-325 MG TABS 4629615 OXYCODONE-ACETAMIN OPHEN Inactive PREDNISONE 20 MG TAB 2 tabs daily for 4 days, 1 t ab daily for 4 days, 1/2 tab daily for 4 days PREDNISONE 20 MG TAB 400884 PREDNISON E Inactive CLINDAMYCIN HCL 300 MG CAPS 1 po q6hr x 7 days CLINDAMYCIN HCL 300 MG CAPS 743859 CLINDAMYCIN HCL Inactive HYDROCODONE-ACETAMINOPHEN 7.5-325 MG TABS 1 po QID PRN Pain 2011 HYDROCODONE-ACETAMINOPHEN 7.5-325 MG TABS 262292 HYDROCODONE-ACETAMINOPHEN Inactive SPIRONOLACTONE 25 MG TAB 1 tablet by mouth daily 01/22 SPIRONOLACTONE 25 MG TAB 728523 SPIRONOLACTONE Inactive IBUPROFEN 600 MG TAB 1 po q6-8hr PRN IBUPROFEN 600 MG TAB 593248 IBUPROFEN Inactive FERROUS SULFATE 325 (65 FE) MG TABS 1 tablet by mouth twice yung y FERROUS SULFATE 325 (65 FE) MG TABS 597960 FERROUS SULF ATE Inactive HYDROCODONE-ACETAMINOPHEN 7.5-500 MG TABS 1-2 every 4 hours as needed HYDROCODONE-ACETAMINOPHEN 7.5-500 MG TABS HYDROCODONE-ACETAMINOPHEN Inactive GENERESS FE 0.8-25 MG-MCG CHEW Take one by mouth daily GENERESS FE 0.8-25 MG-MCG CHEW [id number] NORETHIN-ETH ESTRADIOL-FE Inactive LORTAB 5 5-500 MG TABS 1/2 to 1 tablet by mouth go ry 4 hours as needed for pain LORTAB 5 5-500 MG TABS HYDROCODONE-A CETAMINOPHEN Inactive BACTRIM DS 800-160 MG TAB 1 tab by mouth twice daily 2 BACTRIM DS 800-160 MG TAB 407987 TRIMETHOPRIM-SULFAMETHOXAZOLE Inac tive HYDROCODONE-ACETAMINOPHEN 5-325 MG TABS 1 po q 6hr PRN Pain 2011 HYDROCODONE-ACETAMINOPHEN 5-325 MG TABS 941831 HYDROCODONE-ACETAMINOPHEN Inactive DOXYCYCLINE HYCLATE 100 MG CAPS Take one (1) tablet by mouth twice a day DOXYCYCLINE HYCLATE 100 MG CAPS 7801541 DOXYCYCLINE HYCLATE Inactive PENICILLIN V POTASSIUM 500 MG TAB 1 four times a day 2 PENICILLIN V POTASSIUM 500 MG TAB 399487 PENICILLIN V POTASSIUM [place] ctive PRISTIQ 50 MG [id number] 1 po qd PRISTIQ 50 MG [id number] DESVENLAFAXINE SUCCINATE Inactive TYLENOL/CODEINE #3 300-30 MG TAB 1-2 po q6hr PRN Pain TYLENOL/CODEINE #3 300-30 MG TAB 219143 ACETAMINOPHEN-CODEINE Inact krishna CEPHALEXIN 500 MG TABS Take one by mouth four times daily, morning, noon, early evening and bedtime. CEPHALEXIN 500 MG TABS 557264 CEPHALEXIN Inactive LORTAB 5 5-500 MG TABS 1/2 to 1 tablet by mouth go ry 6 hours as needed for pain LORTAB 5 5-500 MG TABS HYDROCODONE-A CETAMINOPHEN Inactive AMITRIPTYLINE HCL 25 MG TAB 1 tab by mouth daily 60 minutes before bedtime AMITRIPTYLINE HCL 25 MG TAB 840105 AMITRIPTYLINE HCL Inactive AMOXICILLIN 500 MG TABS 2 tabs PO bid x 10 d 7 AMOXICILLIN 500 MG TABS 536362 AMOXICILLIN Inactive IMPLANON 68 MG IMPL IMPLANTED IN LEFT ARM IMPLANON 68 MG IMPL ETONOGESTREL Inactive HYDROCODONE-ACETAMINOPHEN 5-325 MG TABS 1 PO tid PRN pain 5 HYDROCODONE-ACETAMINOPHEN 5-325 MG TABS 955340 HYDROCODONE-ACETAMIN OPHEN Inactive BACTRIM DS 800-160 MG TAB 1 tab by mouth twice daily 2 BACTRIM DS 800-160 MG TAB 944905 TRIMETHOPRIM-SULFAMETHOXAZOLE Inac tive CEPHALEXIN 500 MG CAPS 1 PO bid x 7 days CEPHALEXIN 500 MG CAPS 013615 CEPHALEXIN Inactive HYDROCODONE-ACETAMINOPHEN 5-325 MG TABS 1 tab by mouth every 6 hours as needed HYDROCODONE-ACETAMINOPHEN 5-325 MG TABS 762389 HYDROCODONE-ACETAMINOPHEN Inactive PROMETHAZINE-CODEINE 6.25-10 MG/5ML SYRP 1 tsp every 6 hrs prn c ough PROMETHAZINE-CODEINE 6.25-10 MG/5ML SYRP 927345 PROMETH AZINE-CODEINE Inactive IBUPROFEN 800 MG TAB 1 pill three times daily as needed for pain IBUPROFEN 800 MG TAB 100083 IBUPROFEN Inactive KEFLEX 500 MG CAP 1 tab po tid KEFLEX 500 MG CAP 536912 CEPHALEXIN Inactive HYDROCODONE-ACETAMINOPHEN 7.5-325 MG TABS 1 four times a day as needed for pain HYDROCODONE-ACETAMINOPHEN 7.5-325 MG TABS 529670 HYDROCODONE-ACETAMINOPHEN Inactive BACTRIM DS 800-160 MG TABS by mouth twice a day 11/05 BACTRIM DS 800-160 MG TABS 552718 SULFAMETHOXAZOLE-TRIMETHOPRIM Inactive IBUPROFEN 800 MG TABS 1 tid prn IBUPROFEN 800 MG TABS 546651 IBUPROFEN Inactive ENDOCET 10-325 MG TABS 1 q 6 hr prn ENDOC ET 10-325 MG TABS 5608066 OXYCODONE-ACETAMINOPHEN Inactive HYDROCODONE-ACETAMINOPHEN 7.5-325 MG TABS 1 by mouth e very 6 hours as needed for pain HYDROCODONE-ACETAMINOPHEN 7.5-325 MG TABS 885249 HYDROCODONE-ACETAMINOPHEN Inactive PERCOCET 7.5-325 MG TABS 1 PO q 8 hrs PRN pain PERCOCET 7.5-325 MG TABS 1222563 OXYCODONE-ACETAMINOPHEN Inactive LIDODERM 5 % PTCH One patch to painful area SD N. On for 12 hrs, off for 12 hrs. LIDODERM 5 % [facility] 4423242 LIDOCAINE Inactiv e PERCOCET 7.5-325 MG TABS 1 PO tid PRN pain PERCOCET 7.5- 325 MG TABS 7243615 OXYCODONE-ACETAMINOPHEN Inactive MOBIC 15 MG TABS 1 tab daily MOBIC 15 MG TABS 15 2695 MELOXICAM Inactive CYCLOBENZAPRINE HCL 10 MG TABS 1/2 - 1 tab PO tid PRN back p ain, muscle spasm CYCLOBENZAPRINE HCL 10 MG TABS 595243 CYCLOBENZA JOSEPH HCL Inactive LORATADINE 10 MG TABS 1 tablet by mouth daily LORATADINE 10 MG TABS 688319 LORATADINE Inactive HYDROCODONE-ACETAMINOPHEN 10-325 MG TABS 1 by mouth ev chaka 8 hours as needed for pain HYDROCODONE-ACETAMINOPHEN 10-325 MG TABS 193818 HYDROCODONE-ACETAMINOPHEN Inactive LC-5 LIDOCAINE 5 % CREA apply 1 time daily to affected area 2013 LC-5 LIDOCAINE 5 % CREA 5842287 LIDOCAINE (ANORECTAL) In active PERCOCET 5-325 MG TAB 1 every 6 hours as needed PERCOCET 5-325 MG TAB 5942113 OXYCODONE-ACETAMINOPHEN Inactive KEFLEX 500 MG CAP 1 po qid KEFLEX 500 MG CAP 30 9114 CEPHALEXIN Inactive PROAIR HFA 108 (90 BASE) MCG/ACT AERS 2 puff q 4-6 hrs PRN 01/24 PROAIR HFA 108 (90 BASE) MCG/ACT AERS ALBUTEROL SULFATE Inactive PERCOCET 10-325 MG ORAL TABS 1 every 4 hours as needed PERCOCET 10-325 MG ORAL TABS 2918345 OXYCODONE-ACETAMINOPHEN Inactiv e EMLA 2.5-2.5 % EXT CREA apply to skin lesion q 6 hours, prn 2014 EMLA 2.5-2.5 % EXT CREA 753048 LIDOCAINE-PRILOCAINE Siri ctive PERCOCET 10-325 MG TABS 1 tab by mouth every 6 hours , use sparingly for severe pain PERCOCET 10-325 MG TABS 2229605 OXYCODONE-ACETAMINOPHEN Inactive GLUCOPHAGE 500 MG ORAL TABS one by mouth 3 times a day GLUCOPHAGE 500 MG ORAL TABS 830387 METFORMIN HCL Inactive HYDROCODONE-ACETAMINOPHEN 5-325 MG TABS 1 po q6hr PRN pain 06/30 HYDROCODONE-ACETAMINOPHEN 5-325 MG TABS 420276 HYDROCOD ONE-ACETAMINOPHEN Inactive PERCOCET 5-325 MG TAB 1 tab po q 6 -8 hours, prn for severe pain PERCOCET 5-325 MG TAB 3635987 OXYCODONE-ACETAMINOPHEN In active PERCOCET 5-325 MG ORAL TABS 1 every 6 hours as needed PERCOCET 5-325 MG ORAL TABS 8489459 OXYCODONE-ACETAMINOPHEN Inactive DICLOFENAC SODIUM 50 MG TBEC 1 tablet by mouth four times da tom PRN Pain DICLOFENAC SODIUM 50 MG TBEC [id number] DICLOFENAC S ODIUM Inactive AUGMENTIN 500-125 MG ORAL TABS 1 by mouth twice a day AUGMENTIN 500-125 MG ORAL TABS [id number] AMOXICILLIN-POT CLAVULANATE I nactive HYDROCODONE-ACETAMINOPHEN 5-325 MG TABS 1 po q6hr PRN Pain 03/09 HYDROCODONE-ACETAMINOPHEN 5-325 MG TABS [id number] HYDROCOD ONE-ACETAMINOPHEN Inactive CYCLOBENZAPRINE HCL 10 MG TABS 1 tablet by mouth three times daily as needed for muscle spasm/pain CYCLOBENZAPRINE HCL 10 MG TABS [id number] CYCLOBENZAPRINE HCL Inactive SPRINTEC 28 0.25-35 MG-MCG TABS 1 pill by mouth daily for bi rth control SPRINTEC 28 0.25-35 MG-MCG TABS [id number] NORGESTIMATE-ETH ESTRADIOL Inactive PERCOCET 5-325 MG TAB 1 tab po q 6 hours, prn severe pain PERCOCET 5-325 MG TAB [id number] OXYCODONE-ACETAMINOPHEN Inactive IBUPROFEN 600 MG ORAL TABS 1 by mouth twice a day 2014 IBUPROFEN 600 MG ORAL TABS [id number] IBUPROFEN Inactive CYMBALTA 30 MG CPEP 1 cap by mouth daily CYMBALTA 30 MG CPEP 167001 DULOXETINE HCL Inactive HYDROCODONE-ACETAMINOPHEN 5-325 MG TABS 1 po q6hr PRN Pain 04/09 HYDROCODONE-ACETAMINOPHEN 5-325 MG TABS [id number] HYDROCOD ONE-ACETAMINOPHEN Inactive TRAZODONE HCL 100 MG TAB 0.5 to 1 po qHS PRN Insomnia TRAZODONE HCL 100 MG TAB [id number] TRAZODONE HCL Inactive ALPRAZOLAM 0.5 MG TABS 1 po BID PRN Anxiety ALPRAZOLAM 0.5 MG TABS [id number] ALPRAZOLAM Inactive [id number] 50-325-40 MG ORAL CAPS 1-2 po TID SD N Headache [id number] 50-325-40 MG ORAL CAPS 2 [id number] Inactive HYDROCODONE-ACETAMINOPHEN 5-325 MG TABS 1 po TID PRN Pain 9 HYDROCODONE-ACETAMINOPHEN 5-325 MG TABS [id number] HYDROCODONE-ACETAMIN OPHEN Inactive PERCOCET 10-325 MG TABS 1 tablet every 8 hours as needed for antonia n PERCOCET 10-325 MG TABS [id number] OXYCODONE-ACETAMINOPHEN Inactive ONDANSETRON 4 MG TBDP 1 q4h PRN nausea ON DANSETRON 4 MG TBDP [id number] ONDANSETRON Inactive VIIBRYD 10 & 20 & 40 MG KIT 1 po qd as directed 07/24 VIIBRYD 10 & 20 & 40 MG KIT VILAZODONE HCL Inactive DICLOFENAC SODIUM 50 MG TBEC 1 tablet by mouth four times da tom PRN Pain DICLOFENAC SODIUM 50 MG TBEC [id number] DICLOFENAC S ODIUM Inactive PERCOCET 10-325 MG ORAL TABS one every 6 hours prn pain PERCOCET 10-325 MG ORAL TABS [id number] OXYCODONE-ACETAMINOPHEN Inactiv e PERCOCET 10-325 MG ORAL TABS take 1 tab by mouth q 4hours as needed for pain PERCOCET 10-325 MG ORAL TABS [id number] OXYCODONE-ACETAMINOPHEN Inactive FLONASE ALLERGY RELIEF 50 MCG/ACT NASAL SUSP One spray in each nostril twice a day. FLONASE ALLERGY RELIEF 50 MCG/ACT NASAL S [facility] [id number] FLUTICASONE PROPIONATE Inactive AUGMENTIN 875-125 MG TAB 1 tab by mouth twice daily with food 20 23/05/16 AUGMENTIN 875-125 MG TAB 796865 AMOXICILLIN-POT [place] Inactive HYDROCODONE-ACETAMINOPHEN 5-325 MG TABS 1 tab by mouth every 6 hours as needed for pain HYDROCODONE-ACETAMINOPHEN 5-325 MG TABS 8 [id number] HYDROCODONE-ACETAMINOPHEN Inactive AMOXICILLIN 875 MG TABS 1 tab by mouth twice daily 201 07/18/07 AMOXICILLIN 875 MG TABS 454487 AMOXICILLIN Inactive KEFLEX 500 MG CAP 1 po tid x 10 days KEFLEX 500 MG CAP 762919 CEPHALEXIN Inactive AMOXICILLIN 875 MG TABS 1 tab by mouth twice daily 201 07/19/27 AMOXICILLIN 875 MG TABS 219205 AMOXICILLIN Inactive AMOXICILLIN 875 MG TABS 1 tab by mouth twice daily 201 08/09/13 AMOXICILLIN 875 MG TABS 603512 AMOXICILLIN Inactive CIPRO 500 MG TAB 1 tablet by mouth twice daily CIPRO 500 MG TAB 966310 CIPROFLOXACIN HCL Inactive BACTRIM DS 800-160 MG TAB 1 tab by mouth twice daily 2 BACTRIM DS 800-160 MG TAB 070023 TRIMETHOPRIM-SULFAMETHOXAZOLE Inac tive LEVAQUIN 500 MG TABS 1 PO q day x 7 days LEVAQUIN 500 MG TABS 476611 LEVOFLOXACIN Inactive CLINDAMYCIN HCL 300 MG CAPS 1 po QID x 7 days CLINDAMYCIN HCL 300 MG CAPS 867691 CLINDAMYCIN HCL Inactive AUGMENTIN 875-125 MG TAB 1 tab by mouth twice daily with food 20 22/05/07 AUGMENTIN 875-125 MG TAB 086235 AMOXICILLIN-POT [place] Inactive DIFLUCAN 150 MG TAB 1 qODay x 2 doses DIFLUCAN 150 MG TAB 173621 FLUCONAZOLE Inactive PREDNISONE 20 MG TAB 2 tabs daily for 3 days, 1 t ab daily for 3 days, 1/2 tab daily for 2 days PREDNISONE 20 MG TAB 257101 PREDNISON E Inactive AUGMENTIN 875-125 MG TAB 1 tab by mouth twice daily with food 20 21/10/13 AUGMENTIN 875-125 MG TAB 059829 AMOXICILLIN-POT [place] Inactive HYDROCODONE-ACETAMINOPHEN 5-325 MG TABS 1 tab by mouth every 6 hours as needed PRN Pain HYDROCODONE-ACETAMINOPHEN 5-325 MG TABS 8 56948 HYDROCODONE-ACETAMINOPHEN Inactive PROMETHAZINE HCL 25 MG TABS 1 four times a day as needed for nausea/vomiting PROMETHAZINE HCL 25 MG TABS 894565 PROMETHAZINE HCL Inactive Advance Directives Directive Description Start Date PERMISSION TO SHARE Immunizations Vaccine Administration Date Value Standard Alf cription Seasonal influenza vaccine, injectable, containing preservative, for > 3 years old (Afluria, FluLaval, Fluzone, Fluvirin, Fluarix, Agriflu(>= 18 yo)) Fluzone (>3 yrs.) [XRW037] Influenza, seasonal, inject able Seasonal influenza vaccine, injectable, preservative free, for > 3 years old (Afluria, FluLaval, Fluzone, Fluvirin, Fluarix, Agriflu(>= 18 yo)) Fluzone preservative free (>3 yrs.) [[id number]] Influenza, seasonal, injectable, preservative free Seasonal influenza vaccine, injectable, containing preservative, for > 3 years old (Afluria, FluLaval, Fluzone, Fluvirin, Fluarix, Agriflu(>= 18 yo)) Fluzone (>3 yrs.) [[id number]] Influenza, seasonal, inject able Seasonal influenza vaccine, injectable, containing preservative, for > 3 years old (Afluria, FluLaval, Fluzone, Fluvirin, Fluarix, Agriflu(>= 18 yo)) Fluzone (>3 yrs.) [[id number]] Influenza, seasonal, inject able dT (Diphtheria and [...] Panel - Chemistry sodium, serum 142 mmol/L 002-081 2755/05/12 potassium, serum 4.8 mmol/L 3.5-5.2 chloride, serum [...] 5.00-130.00 Lab Report: Lipid Panel - Chemistry LDL cholesterol, serum 91 mg/dL 0-130 HDL cholesterol, serum 22 mg/dL 32-96 triglyceride, serum, fasting 341 mg/dL 30-200 cholesterol, serum 181 mg/dL 205-792 1962/05/12 cholesterol, serum 165 mg/dL [phone]/05/12 triglyceride, serum, fasting 524 mg/dL 30-200 HDL [...] urinalysis, routine Clean Catch culture status No urine color yellow ketones, urine, by test strip negative bilirubin, urine negative glucose, urine, semiquantitative negative appearance, urine clear leukocyte esterase, urine, by dipstick negative nitrite, urine, semiquantitative negative urobilinogen, urine, semiquantitative (dipstick) negative protein, urine, semiquantitative (dipstick) negative Encounters Code Encounter Date Provider Facility CPT-07472 Level 3 Est. Patient 21:00:18 DIRECTOR OF PLACEMENT Rajni danielson [facility] CPT-07602 Level 3 Est. Patient 14:15:00 DIRECTOR OF PLACEMENT Kalpesh goins MD [facility]-68683 Level 2 Est. Patient 19:57:52 DIRECTOR OF PLACEMENT Rajni danielson [facility] CPT-17648 Level 3 Est. Patient 16:58:40 DIRECTOR OF PLACEMENT Bj funes MD [facility] CPT-79082 Level 3 Est. Patient 08:51:33 CDT Kalpesh goins MD [facility] CPT-25953 Level 4 Est. Patient 14:14:53 CDT Abdirahman Rios MD [facility] CPT-00759 Level 3 Est. Patient 15:47:40 CDT Kalpesh goins MD [facility]-91751 Level 3 Est. Patient 10:57:26 CDT Abdirahman Rios MD [facility] CPT-37462 Level 3 Est. Patient 14:29:53 CDT Abhinav Galvan MD [facility] CPT-64583 Level 2 Est. Patient 16:33:01 CDT Kalpesh goins MD [facility] CPT-96812 Level 4 Est. Patient 16:44:56 CDT Abdirahman Rios MD [facility] CPT-88767 Level 2 Est. Patient 07:49:32 CDT Kalpesh goins MD [facility] CPT-29487 Level 3 New Patient 15:47:11 DIRECTOR OF PLACEMENT Bj huber MD [facility] CPT-67280 Level 4 Est. Patient 14:37:38 DIRECTOR OF PLACEMENT Abdirahman Rios MD [facility] CPT-48604 Level 2 Est. Patient 13:32:17 DIRECTOR OF PLACEMENT Kalpesh goins MD [facility] CPT-74297 Level 3 Est. Patient 17:32:57 DIRECTOR OF PLACEMENT Edilberto tiwari DO [facility] CPT-40453 Level 3 Est. Patient 17:22:33 DIRECTOR OF PLACEMENT Edilberto tiwari [facility] CPT-70975 Level 2 Est. Patient 16:57:09 DIRECTOR OF PLACEMENT Kalpesh goins MD [facility] CPT-50707 Level 3 Est. Patient 14:03:08 DIRECTOR OF PLACEMENT Abdirahman Rios MD [facility] CPT-78373 Level 3 Est. Patient 18:12:34 CDT Shola Wright [facility] CPT-92918 Level 3 Est. Patient 19:34:46 CDT Shola Wright [facility] CPT-47542 Level 3 Est. Patient 14:19:37 CDT Abdirahman Rios MD [facility] CPT-81131 Level 3 Est. Patient 14:11:58 CDT Kalpesh goins MD [facility]-15780 Level 3 Est. Patient 16:50:00 [facility] Level 3 Est. Patient 17:11:32 DIRECTOR OF PLACEMENT Brandie bates MD PhD [facility] CPT-42668 Level 3 Est. Patient 16:31:47 DIRECTOR OF PLACEMENT Shola Wright [facility] CPT-72904 Level 3 Est. Patient 17:51:10 DIRECTOR OF PLACEMENT Abhinav Galvan MD [facility] CPT-44808 Level 4 Est. Patient 12:54:56 DIRECTOR OF PLACEMENT Kalpesh goins MD [facility] CPT-97545 Level 4 Est. Patient 12:53:56 DIRECTOR OF PLACEMENT Kalpesh goins MD [facility] CPT-37600 Level 3 Est. Patient 17:56:58 CDT Shola Wright [facility] CPT-50725 Level 3 Est. Patient 14:26:20 CDT Janak butcher [facility] CPT-77017 Level 3 Est. Patient 09:38:41 CDT Shola Thao Adriana [facility] CPT-11625 Level 3 Est. Patient 14:45:26 CDT Edilberto tiwari [facility] CPT-90681 Level 3 Est. Patient 10:51:33 CDT Hira muniz [facility] CPT-57910 Level 3 Est. Patient 11:57:55 DIRECTOR OF PLACEMENT Shola Thao Adriana [facility] CPT-98860 Level 3 Est. Patient 09:53:33 DIRECTOR OF PLACEMENT Edilberto tiwari [facility] CPT-73018 Level 3 Est. Patient 14:42:54 DIRECTOR OF PLACEMENT Abhinav Galvan MD [facility]-45432 Level 3 Est. Patient 15:10:02 CDT Janak butcher [facility] CPT-36547 Level 3 Est. Patient 15:20:20 CDT Theo dennis MD [facility] CPT-12984 Level 2 Est. Patient 14:08:57 CDT Kalpesh goins MD [facility] CPT-69826 Level 3 Est. Patient 13:56:19 CDT Abdirahman Rios MD [facility] CPT-79810 Level 3 Est. Patient 13:59:37 CDT Abdirahman Rios MD [facility] CPT-86539 Level 2 Est. Patient 14:44:59 CDT Kalpesh goins MD [facility]-99806 Level 3 Est. Patient 06:06:23 CDT Edilberto tiwari [facility] CPT-60886 Level 3 Est. Patient 15:23:54 CDT Abdirahman Rios MD [facility] CPT-18837 Level 3 Est. Patient 15:43:49 CDT Abdirahman Rios MD [facility] CPT-66112 Level 3 Est. Patient 12:46:47 DIRECTOR OF PLACEMENT Abdiramhan Rios MD [facility] CPT-40614 Level 3 Est. Patient 08:13:35 DIRECTOR OF PLACEMENT Abdirahman Rios MD [facility] CPT-76679 Level 2 Est. Patient 09:36:42 DIRECTOR OF PLACEMENT Abdirahman Rios MD [facility] CPT-94178 Level 3 Est. Patient 10:56:43 CDT Abdirahman Rios MD [facility] CPT-43501 Level 3 Est. Patient 18:24:52 CDT Abdirahman Rios MD [facility] CPT-23175 Level 3 Est. Patient 13:27:22 CDT Abdirahman Rios MD [facility] Procedures Code Procedure Name Date Entry Date Standard Desc ription CPT-98958 Postop F/U Visit 15:18:16 DIRECTOR OF PLACEMENT CPT-80546 Postop F/U Visit 15:03:49 DIRECTOR OF PLACEMENT CPT-53758 Postop F/U Visit 14:45:23 DIRECTOR OF PLACEMENT CPT-92359 Postop F/U Visit 14:11:03 DIRECTOR OF PLACEMENT CPT-41211 Postop F/U Visit 18:21:21 DIRECTOR OF PLACEMENT CPT-94731 Postop F/U Visit 15:57:12 DIRECTOR OF PLACEMENT CPT-93008 Bladder Instillation 16:58:41 DIRECTOR OF PLACEMENT 6 CPT-51970 Fluzone Quadrivalent Intramuscular Suspe nsion 0.5 ML 15:20:56 DIRECTOR OF PLACEMENT CPT-17376 Immunization Single Admin 15:20:56 DIRECTOR OF PLACEMENT 2014 CPT-40150 Excis pilonidal cyst simple 08:51:34 CDT 20 22/04/20 CPT-21672 Venipuncture Draw Fee 14:27:29 CDT CPT-21441 Postop F/U Visit 15:27:43 CDT CPT-96979 Postop F/U Visit 14:40:59 CDT CPT-03973 Postop F/U Visit 15:02:46 CDT CPT-90189 Postop F/U Visit 11:29:00 DIRECTOR OF PLACEMENT CPT-J0696 Rocephin 1000 mg (Ceftriaxone) 17:22:33 DIRECTOR OF PLACEMENT CPT-94595 Postop F/U Visit 18:41:07 DIRECTOR OF PLACEMENT CPT-59739 Postop F/U Visit 08:19:08 DIRECTOR OF PLACEMENT CPT-93073 Immunization Single Admin 16:41:53 CDT 2013 CPT-41985 Fluzone Quadrivalent Intramuscular Suspe nsion 0.5 ML 16:41:53 CDT CPT-OV Office Visit 16:39:18 CDT CPT-OV Office Visit 16:16:36 CDT CPT-OV Office Visit 15:34:48 CDT CPT-13309 Postop F/U Visit 14:50:12 CDT CPT-35463 Postop F/U Visit 14:41:10 CDT CPT-78731 Venipuncture Draw Fee 11:38:04 DIRECTOR OF PLACEMENT CPT-50396 Postop F/U Visit 19:02:59 DIRECTOR OF PLACEMENT CPT-83731 Postop F/U Visit 12:04:54 DIRECTOR OF PLACEMENT CPT-74963 Administration single or combination vac cine inc oral 15:56:43 CDT CPT-02889 Influenza split virus > age 3 15:56:43 CDT CPT-26797 Hand comp min 3V 14:25:19 CDT CPT-83983 Postop F/U Visit 21:40:51 CDT CPT-01979 Postop F/U Visit 10:58:43 CDT CPT-93951 Administration single or combination vac cine inc oral 12:33:54 DIRECTOR OF PLACEMENT CPT-66523 Influenza Preservative Free split virus >age 3 12:33:54 DIRECTOR OF PLACEMENT CPT-07168 Administration single or combination vac cine inc oral 09:30:51 CDT CPT-55777 Influenza split virus > age 3 09:30:51 CDT CPT-91027 Postop F/U Visit 15:14:53 CDT CPT-59853 Postop F/U Visit 13:50:14 CDT CPT-85099 Postop F/U Visit 13:34:52 CDT CPT-OV Office Visit 16:55:03 CDT CPT-65995 [place] of cervix w bx ECC 13:32:50 CDT 10/19 CPT-J1885 Toradol 60 mg (Ketorolac) 15:31:59 CDT 2011 CPT-J1885 Toradol 60 mg (Ketorolac) 15:23:54 CDT 2011 CPT-87642 Visit 11:34:37 DIRECTOR OF PLACEMENT CPT-52138 Visit 10:52:39 DIRECTOR OF PLACEMENT CPT-15084 Visit 10:12:02 DIRECTOR OF PLACEMENT CPT-75683 Visit 11:22:43 DIRECTOR OF PLACEMENT CPT-71374 Visit 11:24:12 DIRECTOR OF PLACEMENT CPT-33121 Visit 10:47:05 DIRECTOR OF PLACEMENT CPT-OV Office Visit 10:26:16 DIRECTOR OF PLACEMENT CPT-OV Office Visit 15:34:31 DIRECTOR OF PLACEMENT CPT-61943 Visit 10:42:08 DIRECTOR OF PLACEMENT CPT-00644 Visit 10:52:45 DIRECTOR OF PLACEMENT CPT-000 Give Appropriate Flu Vaccine 16:56:41 CDT 2 CPT-19482 Administration single or combination vac cine inc oral 10:33:21 CDT CPT-12327 Influenza split virus > age 3 10:33:21 CDT CPT-44500 Visit 13:23:09 CDT CPT-20922 Visit 18:24:52 CDT CPT-26768 Sono OB comp > 14 weeks 12:07:49 CDT 04/07
--- OUTSIDE RECORDS SUMMARY | 2020-01-18 16:05 | XMS REPORT | Clinical Summary ---
Author Author Admin, Jeri Cabrera [employer] Address Unknown Phone Unavailable Allergies, Adverse Reactions, Alerts Allergy Name Reaction Description Start Date Severity Status Pr ovider TORADOL Rash Severe Active Rajni Yokjagjit AP RN BACTRIM Critical Active Kalpesh Dong MD [...] unspecified SINUSITIS, ACUTE 461.9 Active Rajni Alcazar STAFFING CLERK Acute sinusitis, unspecified BACK PAIN 724.5 Resolved [...] SURG TEETH ORL CAV&DIGESTV SYS NEC V58.75 2012/ 07/31 Resolved Good Julian MD Aftercare followi ng [...] without mention of abscess Interstitial Cystitis Active jB marie MD Chronic interstitial cystitis Chronic pain syndrome 338.4 Active Rajni Alcazar STAFFING CLERK Chronic pain syndrome AFTERCARE FOLLOW SURGERY SKIN&SUBCUT [...] Jose M Julian MD ACUTE BRONCHITIS ICD-466.0 Jose M Julian MD JAW PAIN ICD-526.9 Inactive Good [...] Generic Name NDC Status Provider Patient Instruction PROMETHAZINE HCL 25 MG TABS 1 four times a day as needed for nausea/vomiting PROMETHAZINE HCL 62981651001 Active Abdirahman Rios MD Active LC-4 LIDOCAINE 4 % EXT CREA apply q 6 hours, prn 08/03 LIDOCAINE 90397616982 No Longer Active Kalpesh Dong MD Active PERCOCET 10-325 MG TABS 1 tablet every 8 hours as needed for antonia n OXYCODONE-ACETAMINOPHEN 37968949977 No Longer Active Kalpesh Dong MD Active HYDROCODONE-ACETAMINOPHEN 5-325 MG TABS 1 tab by mouth every 6 hours as needed for pain HYDROCODONE-ACETAMINOPHEN 25820507466 No Longer Active Kalpesh Dong MD Active PERCOCET 10-325 MG ORAL TABS 1 every 4 hous as needed OXYCODONE-ACETAMINOPHEN 25673128307 Active Hira Moser APRN Active GLYDO 2 % EXT GEL apply to painful areas as needed LIDOCAINE HCL 88901045646 Active Kalpesh Dong MD Active LC-4 LIDOCAINE 4 % EXT CREA apply to painful area every 12 h ours or as needed LIDOCAINE 39571479085 Active Kalpesh Dong MD Active AUGMENTIN 875-125 MG TAB 1 tab by mouth twice daily with food 20 23/05/16 AMOXICILLIN-POT CLAVULANATE 24093421471 No Longer Active Lizeth hi Yokum STAFFING CLERK 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 FLUTICASONE PROPIONATE 87976413706 No Longer Ac tive Rajni Yokum STAFFING CLERK Active PERCOCET 10-325 MG ORAL TABS take 1 tab by mouth q 4hours as needed for pain OXYCODONE-ACETAMINOPHEN 90694374092 No Longer Active Rajni Yokum STAFFING CLERK Active PERCOCET 10-325 MG ORAL TABS one every 6 hours prn pain OXYCODONE-ACETAMINOPHEN 34921498269 No Longer Active Rajni Yokum STAFFING CLERK Active IBUPROFEN 800 MG TABS 1 tab po tid, with food I BUPROFEN 73135682836 Active Jillina Frazell STAFFING CLERK Active DICLOFENAC SODIUM 50 MG TBEC 1 tablet by mouth four times da tom PRN Pain DICLOFENAC SODIUM 60085030207 No Longer Active Rajni Yokum STAFFING CLERK Active VIIBRYD 10 & 20 & 40 MG KIT 1 po qd as directed 07/24 VILAZODONE HCL 71944260149 No Longer Active Rajni Yokum STAFFING CLERK Active ONDANSETRON 4 MG TBDP 1 q4h PRN nausea ONDANSET KELBY 03438442743 No Longer Active Rajni Yokum STAFFING CLERK Active PERCOCET 10-325 MG TABS 1 tablet every 8 hours as needed for antonia n OXYCODONE-ACETAMINOPHEN 24011151509 No Longer Active Rajni Y okum STAFFING CLERK Active HYDROCODONE-ACETAMINOPHEN 5-325 MG TABS 1 po TID PRN Pain 9 HYDROCODONE-ACETAMINOPHEN 74808980404 No Longer Active Abdirahman Rios MD Active [id number]-[id number] 50-325-40 MG ORAL CAPS 1-2 po TID MA N Headache [id number] 06482997697 No Longer Act krishna Kalpesh Dong MD Active ALPRAZOLAM 0.5 MG TABS 1 po BID PRN Anxiety ALP RAZOLAM 30466451527 No Longer Active Kalpesh Dong MD Active TRAZODONE HCL 100 MG TAB 0.5 to 1 po qHS PRN Insomnia TRAZODONE HCL 15294799141 No Longer Active Kalpesh Dong MD Activ e HYDROCODONE-ACETAMINOPHEN 5-325 MG TABS 1 po q6hr PRN Pain 04/09 HYDROCODONE-ACETAMINOPHEN 77770177390 No Longer Active Kalpesh Dong MD Active CYMBALTA 30 MG CPEP 1 cap by mouth daily DULOXE CLEO HCL 91402243678 No Longer Active Abdirahman Rios MD Active IBUPROFEN 600 MG ORAL TABS 1 by mouth twice a day 2014 IBUPROFEN 30097074715 No Longer Active Abdirahman Rios MD Activ e PERCOCET 5-325 MG TAB 1 tab po q 6 hours, prn severe pain 1 OXYCODONE-ACETAMINOPHEN 39447914008 No Longer Active Abdirahman Rios MD Active SPRINTEC 28 0.25-35 MG-MCG TABS 1 pill by mouth daily for bi rth control NORGESTIMATE-ETH ESTRADIOL 47719627543 No Longer Acti ve Matthewllina Karmenl STAFFING CLERK Active CYCLOBENZAPRINE HCL 10 MG TABS 1 tablet by mouth three times daily as needed for muscle spasm/pain CYCLOBENZAPRINE HCL 82753712778 No Longer Active Matthewllina Karmenl STAFFING CLERK Active HYDROCODONE-ACETAMINOPHEN 5-325 MG TABS 1 po q6hr PRN Pain 03/09 HYDROCODONE-ACETAMINOPHEN 80918626779 No Longer Active Jillina Frazel l STAFFING CLERK Active AUGMENTIN 500-125 MG ORAL TABS 1 by mouth twice a day AMOXICILLIN-POT CLAVULANATE 56383060279 No Longer Active Jillina Frazell STAFFING CLERK Active DICLOFENAC SODIUM 50 MG TBEC 1 tablet by mouth four times da tom PRN Pain DICLOFENAC SODIUM 58998182783 No Longer Active Jillin a Frazell STAFFING CLERK Active PROMETHAZINE HCL 25 MG TABS 1 four times a day as needed for nausea/vomiting PROMETHAZINE HCL 46371251937 No Longer Active Abdirahman Rios MD Active HYDROCODONE-ACETAMINOPHEN 5-325 MG TABS 1 tab by mouth every 6 hours as needed PRN Pain HYDROCODONE-ACETAMINOPHEN 18903889243 No Longer Active Abdirahman Rios MD Active GEMFIBROZIL 600 MG TABS 1 po BID GEMFIBROZIL 26600280 005 Active Abdirahman Rios MD Active PERCOCET 5-325 MG ORAL TABS 1 every 6 hours as needed OXYCODONE-ACETAMINOPHEN 38045504951 No Longer Active Abdirahman Rios MD Active PERCOCET 5-325 MG TAB 1 tab po q 6 -8 hours, prn for severe pain OXYCODONE-ACETAMINOPHEN 05529429659 No Longer Active Abdirahman Rios MD Active HYDROCODONE-ACETAMINOPHEN 5-325 MG TABS 1 po q6hr PRN pain 06/30 HYDROCODONE-ACETAMINOPHEN 94370612568 No Longer Active Hira Peraza l STAFFING CLERK Active GLUCOPHAGE 500 MG ORAL TABS one by mouth 3 times a day METFORMIN HCL 17798006824 No Longer Active Hira Moser STAFFING CLERK Ac tive PERCOCET 10-325 MG TABS 1 tab by mouth every 6 hours , use sparingly for severe pain OXYCODONE-ACETAMINOPHEN 72119042242 No Longer A ctive Abdirahman Rios MD Active EMLA 2.5-2.5 % EXT CREA apply to skin lesion q 6 hours, prn 2014 LIDOCAINE-PRILOCAINE 03255357044 No Longer Active Abdirahman Rios MD Active PERCOCET 10-325 MG ORAL TABS 1 every 4 hours as needed OXYCODONE-ACETAMINOPHEN 69597939797 No Longer Active Abdirahman Rios MD Active AUGMENTIN 875-125 MG TAB 1 tab by mouth twice daily with food 20 21/10/13 AMOXICILLIN-POT CLAVULANATE 62024343440 No Longer Active Ursula Moser STAFFING CLERK Active PROAIR HFA 108 (90 BASE) MCG/ACT AERS 2 puff q 4-6 hrs PRN 01/24 ALBUTEROL SULFATE 44930851996 No Longer Active Kalpesh Dong MD Active PREDNISONE 20 MG TAB 2 tabs daily for 3 days, 1 t ab daily for 3 days, 1/2 tab daily for 2 days PREDNISONE 81748550252 No Longer Active Abdirahman Rios MD Active KEFLEX 500 MG CAP 1 po qid CEPHALEXIN 382645774 20 No Longer Active Kalpesh Dong MD Active PERCOCET 5-325 MG TAB 1 every 6 hours as needed OXYCODONE-ACETAMINOPHEN 79213354609 No Longer Active Shola MCGILL Active LC-5 LIDOCAINE 5 % CREA apply 1 time daily to affected area 2013 LIDOCAINE (ANORECTAL) 14167346079 No Longer Active Hira muniz STAFFING CLERK Active HYDROCODONE-ACETAMINOPHEN 10-325 MG TABS 1 by mouth ev chaka 8 hours as needed for pain HYDROCODONE-ACETAMINOPHEN 47767935996 No Longer Active Jillina Frazell STAFFING CLERK Active LORATADINE 10 MG TABS 1 tablet by mouth daily L ORATADINE 09821786354 No Longer Active Jillina Frazell STAFFING CLERK Active DIFLUCAN 150 MG TAB 1 qODay x 2 doses FLUCONAZO LE 05925072681 No Longer Active Jillina Frazell STAFFING CLERK Active CYCLOBENZAPRINE HCL 10 MG TABS 1/2 - 1 tab PO tid PRN back p ain, muscle spasm CYCLOBENZAPRINE HCL 12935203020 No Longer Active Karen siri Frazell STAFFING CLERK Active AUGMENTIN 875-125 MG TAB 1 tab by mouth twice daily with food 20 22/05/07 AMOXICILLIN-POT CLAVULANATE 32452984856 No Longer Active Loida Rios MD Active MOBIC 15 MG TABS 1 tab daily MELOXICAM 069401726 14 No Longer Active Abdirahman Rios MD Active PERCOCET 7.5-325 MG TABS 1 PO tid PRN pain OXYCODONE-ACETAMINOPHEN 69982078027 No Longer Active Abdirahman Rios MD Active LIDODERM 5 % PTCH One patch to painful area MA N. On for 12 hrs, off for 12 hrs. LIDOCAINE 67008364131 No Longer Active Abdirahman Rios MD Active PERCOCET 7.5-325 MG TABS 1 PO q 8 hrs PRN pain OXYCODONE-ACETAMINOPHEN 22035899908 No Longer Active Shola MCGILL Active HYDROCODONE-ACETAMINOPHEN 7.5-325 MG TABS 1 by mouth e very 6 hours as needed for pain HYDROCODONE-ACETAMINOPHEN 96892324066 No Longer Active Good Julian MD Active CLINDAMYCIN HCL 300 MG CAPS 1 po QID x 7 days CLINDAMYCIN HCL 38414781474 No Longer Active Abdirahman Rios MD Activ e BACTRIM DS 800-160 MG TABS 1 po BID x 7 days 5 SULFAMETHOXAZOLE-TRIMETHOPRIM 37413376775 No Longer Active Abdirahman Rios MD Active ENDOCET 10-325 MG TABS 1 q 6 hr prn OXYCODONE-ACETAMINOPHEN 87258627641 No Longer Active Abdirahman Rios MD Active IBUPROFEN 800 MG TABS 1 tid prn IBUPROFEN 211844 43112 No Longer Active Abdirahman Rios MD Active BACTRIM DS 800-160 MG TABS by mouth twice a day 11/05 SULFAMETHOXAZOLE-TRIMETHOPRIM 98898592088 No Longer Active Good Julian MD Active HYDROCODONE-ACETAMINOPHEN 7.5-325 MG TABS 1 four times a day as needed for pain HYDROCODONE-ACETAMINOPHEN 61102223634 No Longer Activ e Good Julian MD Active KEFLEX 500 MG CAP 1 tab po tid CEPHALEXIN 504375 76809 No Longer Active Hira Moser APRN Active IBUPROFEN 800 MG TAB 1 pill three times daily as needed for pain IBUPROFEN 64018375571 No Longer Active Kalpesh Dong MD Active PROMETHAZINE-CODEINE 6.25-10 MG/5ML SYRP 1 tsp every 6 hrs prn c ough PROMETHAZINE-CODEINE 63622882203 No Longer Active Kalpesh Carr Active HYDROCODONE-ACETAMINOPHEN 5-325 MG TABS 1 tab by mouth every 6 hours as needed HYDROCODONE-ACETAMINOPHEN 47928880075 No Longer Activ e Shola MCGILL Active CEPHALEXIN 500 MG CAPS 1 PO bid x 7 days CEPHAL EXIN 53846817740 No Longer Active Shola MCGILL Active BACTRIM DS 800-160 MG TAB 1 tab by mouth twice daily 2 TRIMETHOPRIM-SULFAMETHOXAZOLE 95544470534 No Longer Active Kalpesh Dong MD Active HYDROCODONE-ACETAMINOPHEN 5-325 MG TABS 1 PO tid PRN pain 5 HYDROCODONE-ACETAMINOPHEN 83460330121 No Longer Active Abhinav Galvan MD Active IMPLANON 68 MG IMPL IMPLANTED IN LEFT ARM ETONO GESTREL 49858718672 No Longer Active Hira Moser APRN Active AMOXICILLIN 500 MG TABS 2 tabs PO bid x 10 d AM OXICILLIN 16963777121 No Longer Active Kalpesh Dong MD Active LEVAQUIN 500 MG TABS 1 PO q day x 7 days LEVOFL OXACIN 92419113950 No Longer Active Shola MGCILL Active AMITRIPTYLINE HCL 25 MG TAB 1 tab by mouth daily 60 minutes before bedtime AMITRIPTYLINE HCL 02746083557 No Longer Active Shola MCGILL Active LORTAB 5 5-500 MG TABS 1/2 to 1 tablet by mouth go ry 6 hours as needed for pain HYDROCODONE-ACETAMINOPHEN 98147278550 No Longer Active Shola MCGILL Active CEPHALEXIN 500 MG TABS Take one by mouth four times daily, morning, noon, early evening and bedtime. CEPHALEXIN 92798929185 No Long er Active Hira Moser APRN Active TYLENOL/CODEINE #3 300-30 MG TAB 1-2 po q6hr PRN Pain ACETAMINOPHEN-CODEINE 96483522144 No Longer Active Edilberto Marino DO Active PRISTIQ 50 MG [id number] 1 po qd DESVENLAFAXI NE SUCCINATE 90639969062 No Longer Active Edilberto Marino DO Active PENICILLIN V POTASSIUM 500 MG TAB 1 four times a day 2 PENICILLIN V POTASSIUM 26168070368 No Longer Active Edilberto Marino DO Active DOXYCYCLINE HYCLATE 100 MG CAPS Take one (1) tablet by mouth twice a day DOXYCYCLINE HYCLATE 89920024090 No Longer Active Ronnie Galvan MD Active HYDROCODONE-ACETAMINOPHEN 5-325 MG TABS 1 po q 6hr PRN Pain 2011 HYDROCODONE-ACETAMINOPHEN 06542130272 No Longer Active Jerson Perez RN Active BACTRIM DS 800-160 MG TAB 1 tab by mouth twice daily 2 TRIMETHOPRIM-SULFAMETHOXAZOLE 54723456459 No Longer Active Kalpesh Dong MD Active LORTAB 5 5-500 MG TABS 1/2 to 1 tablet by mouth go ry 4 hours as needed for pain HYDROCODONE-ACETAMINOPHEN 51829116424 No Longer Active Kalpesh Dong MD Active GENERESS FE 0.8-25 MG-MCG CHEW Take one by mouth daily NORETHIN-ETH ESTRADIOL-FE 12095854079 No Longer Active Kalpesh Dong MD Active HYDROCODONE-ACETAMINOPHEN 7.5-500 MG TABS 1-2 every 4 hours as needed HYDROCODONE-ACETAMINOPHEN 31151000094 No Longer Activ e Kalpesh Dong MD Active FERROUS SULFATE 325 (65 FE) MG TABS 1 tablet by mouth twice yung y FERROUS SULFATE 12090613184 No Longer Active Kalpesh Dong MD Active IBUPROFEN 600 MG TAB 1 po q6-8hr PRN IBUPROFEN 87696077439 No Longer Active Kalpesh Dong MD Active SPIRONOLACTONE 25 MG TAB 1 tablet by mouth daily 01/22 SPIRONOLACTONE 08970644350 No Longer Active Kalpesh Dong MD Acti ve HYDROCODONE-ACETAMINOPHEN 7.5-325 MG TABS 1 po QID PRN Pain 2011 HYDROCODONE-ACETAMINOPHEN 17275725764 No Longer Active Kalpesh Dong MD Active CLINDAMYCIN HCL 300 MG CAPS 1 po q6hr x 7 days CLINDAMYCIN HCL 06830591947 No Longer Active Edilberto Marino DO Active PREDNISONE 20 MG TAB 2 tabs daily for 4 days, 1 t ab daily for 4 days, 1/2 tab daily for 4 days PREDNISONE 85968490427 No Longer Active Edilberto Marino DO Active PERCOCET 5-325 MG TABS 1 tablet by mouth every 6 hours as ne eded for pain OXYCODONE-ACETAMINOPHEN 81952089352 No Longer Active Abdirahman Rios MD Active VITAMINS TABS Take one by mouth daily MV & MIN W/FE-FA TABS 48730242347 No Longer Active Abdirahman Rios MD Active LUIS 3-0.02 MG TABS 1 tablet by mouth daily as directed DROSPIRENONE-ETHINYL ESTRADIOL 60456762602 No Longer Active Abdirahman Rios MD Active LORATADINE 10 MG TABS 1 tablet by mouth daily L ORATADINE 91736812923 No Longer Active Kalpesh Dong MD Active HYDROCODONE-ACETAMINOPHEN 5-325 MG TABS 1 po q 6hr PRN Pain 2010 HYDROCODONE-ACETAMINOPHEN 37861146319 No Longer Active Edilberto Marino DO Active BACTRIM DS 800-160 MG TAB 1 tab by mouth twice daily 2 TRIMETHOPRIM-SULFAMETHOXAZOLE 70861824811 No Longer Active Abdirahman Rios MD Active 28-0.8 MG TABS Take one by mouth daily 09/20 VIT-FE FUMARATE-FA 06549114905 No Longer Active Abdirahman Rios MD Active CIPRO 500 MG TAB 1 tablet by mouth twice daily CIPROFLOXACIN HCL 90102130722 No Longer Active Abdirahman Rios MD Active BENADRYL 25 MG CAP 1 po q8hr PRN Congestion DIPHENHYDRAMINE HCL 20179276112 No Longer Active Abdirahman Rios MD Active ZOLOFT 50 MG TAB 1 po qd SERTRALINE HCL 273791 30920 No Longer Active Abdirahman Rios MD Active AMOXICILLIN 875 MG TABS 1 tab by mouth twice daily 201 08/09/13 AMOXICILLIN 71939748442 No Longer Active Abdirahman Rios MD Activ e AMOXICILLIN 875 MG TABS 1 tab by mouth twice daily 201 07/19/27 AMOXICILLIN 69638138435 No Longer Active Abdirahman Rios MD Activ e BACTRIM DS 800-160 MG TAB 2 tab by mouth twice daily 2 TRIMETHOPRIM-SULFAMETHOXAZOLE 63030138618 No Longer Active Abdirahman Rios MD Active KEFLEX 500 MG CAP 1 po tid x 10 days CEPHALEXIN 70025628208 No Longer Active Abdirahman Rios MD Active AMOXICILLIN 875 MG TABS 1 tab by mouth twice daily 201 07/18/07 AMOXICILLIN 57623413986 No Longer Active Abdirahman Rios MD Activ e BACTRIM DS 800-160 MG TAB 2 tab by mouth twice daily 2 BACTRIM DS 800-160 MG TAB 322369 TRIMETHOPRIM-SULFAMETHOXAZOLE Inactive ZOLOFT 50 MG TAB 1 po qd ZOLOFT 50 MG TAB 3129 41 SERTRALINE HCL Inactive BENADRYL 25 MG CAP 1 po q8hr PRN Congestion BENADRYL 25 MG CAP [id number] DIPHENHYDRAMINE HCL Inactive 28-0.8 MG TABS Take one by mouth daily 09/20 28-0.8 MG TABS VIT-FE FUMARATE-FA Inactive HYDROCODONE-ACETAMINOPHEN 5-325 MG TABS 1 po q 6hr PRN Pain 2010 HYDROCODONE-ACETAMINOPHEN 5-325 MG TABS 902181 HYDROCODONE-ACETAMINOPHEN Inactive LORATADINE 10 MG TABS 1 tablet by mouth daily LORATADINE 10 MG TABS 538300 LORATADINE Inactive LUIS 3-0.02 MG TABS 1 tablet by mouth daily as directed LUIS 3-0.02 MG TABS 211339 DROSPIRENONE-ETHINYL ESTRADIOL Inactive VITAMINS TABS Take one by mouth daily VITAMINS TABS MV & MIN W/FE-FA TABS Inactive PERCOCET 5-325 MG TABS 1 tablet by mouth every 6 hours as ne eded for pain PERCOCET 5-325 MG TABS 0950615 OXYCODONE-ACETAMIN OPHEN Inactive PREDNISONE 20 MG TAB 2 tabs daily for 4 days, 1 t ab daily for 4 days, 1/2 tab daily for 4 days PREDNISONE 20 MG TAB 475298 PREDNISON E Inactive CLINDAMYCIN HCL 300 MG CAPS 1 po q6hr x 7 days CLINDAMYCIN HCL 300 MG CAPS 551680 CLINDAMYCIN HCL Inactive HYDROCODONE-ACETAMINOPHEN 7.5-325 MG TABS 1 po QID PRN Pain 2011 HYDROCODONE-ACETAMINOPHEN 7.5-325 MG TABS 542047 HYDROCODONE-ACETAMINOPHEN Inactive SPIRONOLACTONE 25 MG TAB 1 tablet by mouth daily 01/22 SPIRONOLACTONE 25 MG TAB 089025 SPIRONOLACTONE Inactive IBUPROFEN 600 MG TAB 1 po q6-8hr PRN IBUPROFEN 600 MG TAB 162691 IBUPROFEN Inactive FERROUS SULFATE 325 (65 FE) MG TABS 1 tablet by mouth twice yung y FERROUS SULFATE 325 (65 FE) MG TABS 789072 FERROUS SULF ATE Inactive HYDROCODONE-ACETAMINOPHEN 7.5-500 MG TABS 1-2 every 4 hours as needed HYDROCODONE-ACETAMINOPHEN 7.5-500 MG TABS HYDROCODONE-ACETAMINOPHEN Inactive GENERESS FE 0.8-25 MG-MCG CHEW Take one by mouth daily GENERESS FE 0.8-25 MG-MCG CHEW 1516827 NORETHIN-ETH ESTRADIOL-FE Inactive LORTAB 5 5-500 MG TABS 1/2 to 1 tablet by mouth go ry 4 hours as needed for pain LORTAB 5 5-500 MG TABS HYDROCODONE-A CETAMINOPHEN Inactive BACTRIM DS 800-160 MG TAB 1 tab by mouth twice daily 2 BACTRIM DS 800-160 MG TAB 738684 TRIMETHOPRIM-SULFAMETHOXAZOLE Inac tive HYDROCODONE-ACETAMINOPHEN 5-325 MG TABS 1 po q 6hr PRN Pain 2011 HYDROCODONE-ACETAMINOPHEN 5-325 MG TABS 377878 HYDROCODONE-ACETAMINOPHEN Inactive DOXYCYCLINE HYCLATE 100 MG CAPS Take one (1) tablet by mouth twice a day DOXYCYCLINE HYCLATE 100 MG CAPS 0429897 DOXYCYCLINE HYCLATE Inactive PENICILLIN V POTASSIUM 500 MG TAB 1 four times a day 2 PENICILLIN V POTASSIUM 500 MG TAB 876886 PENICILLIN V POTASSIUM Siri ctive PRISTIQ 50 MG [id number] 1 po qd PRISTIQ 50 MG [id number] DESVENLAFAXINE SUCCINATE Inactive TYLENOL/CODEINE #3 300-30 MG TAB 1-2 po q6hr PRN Pain TYLENOL/CODEINE #3 300-30 MG TAB 999643 ACETAMINOPHEN-CODEINE Inact krishna CEPHALEXIN 500 MG TABS Take one by mouth four times daily, morning, noon, early evening and bedtime. CEPHALEXIN 500 MG TABS 982470 CEPHALEXIN Inactive LORTAB 5 5-500 MG TABS 1/2 to 1 tablet by mouth go ry 6 hours as needed for pain LORTAB 5 5-500 MG TABS HYDROCODONE-A CETAMINOPHEN Inactive AMITRIPTYLINE HCL 25 MG TAB 1 tab by mouth daily 60 minutes before bedtime AMITRIPTYLINE HCL 25 MG TAB 174043 AMITRIPTYLINE HCL Inactive AMOXICILLIN 500 MG TABS 2 tabs PO bid x 10 d 7 AMOXICILLIN 500 MG TABS 185123 AMOXICILLIN Inactive IMPLANON 68 MG IMPL IMPLANTED IN LEFT ARM IMPLANON 68 MG IMPL ETONOGESTREL Inactive HYDROCODONE-ACETAMINOPHEN 5-325 MG TABS 1 PO tid PRN pain 5 HYDROCODONE-ACETAMINOPHEN 5-325 MG TABS 725030 HYDROCODONE-ACETAMIN OPHEN Inactive BACTRIM DS 800-160 MG TAB 1 tab by mouth twice daily 2 BACTRIM DS 800-160 MG TAB 792081 TRIMETHOPRIM-SULFAMETHOXAZOLE Inac tive CEPHALEXIN 500 MG CAPS 1 PO bid x 7 days CEPHALEXIN 500 MG CAPS 176671 CEPHALEXIN Inactive HYDROCODONE-ACETAMINOPHEN 5-325 MG TABS 1 tab by mouth every 6 hours as needed HYDROCODONE-ACETAMINOPHEN 5-325 MG TABS 648189 HYDROCODONE-ACETAMINOPHEN Inactive PROMETHAZINE-CODEINE 6.25-10 MG/5ML SYRP 1 tsp every 6 hrs prn c ough PROMETHAZINE-CODEINE 6.25-10 MG/5ML SYRP 772597 PROMETH AZINE-CODEINE Inactive IBUPROFEN 800 MG TAB 1 pill three times daily as needed for pain IBUPROFEN 800 MG TAB 833821 IBUPROFEN Inactive KEFLEX 500 MG CAP 1 tab po tid KEFLEX 500 MG CAP 274400 CEPHALEXIN Inactive HYDROCODONE-ACETAMINOPHEN 7.5-325 MG TABS 1 four times a day as needed for pain HYDROCODONE-ACETAMINOPHEN 7.5-325 MG TABS 425454 HYDROCODONE-ACETAMINOPHEN Inactive BACTRIM DS 800-160 MG TABS by mouth twice a day 11/05 BACTRIM DS 800-160 MG TABS 181460 SULFAMETHOXAZOLE-TRIMETHOPRIM Inactive IBUPROFEN 800 MG TABS 1 tid prn IBUPROFEN 800 MG TABS 218952 IBUPROFEN Inactive ENDOCET 10-325 MG TABS 1 q 6 hr prn ENDOC ET 10-325 MG TABS 3366395 OXYCODONE-ACETAMINOPHEN Inactive HYDROCODONE-ACETAMINOPHEN 7.5-325 MG TABS 1 by mouth e very 6 hours as needed for pain HYDROCODONE-ACETAMINOPHEN 7.5-325 MG TABS 590482 HYDROCODONE-ACETAMINOPHEN Inactive PERCOCET 7.5-325 MG TABS 1 PO q 8 hrs PRN pain PERCOCET 7.5-325 MG TABS 2944869 OXYCODONE-ACETAMINOPHEN Inactive LIDODERM 5 % PTCH One patch to painful area MA N. On for 12 hrs, off for 12 hrs. LIDODERM 5 % PTCH 2242936 LIDOCAINE Inactiv e PERCOCET 7.5-325 MG TABS 1 PO tid PRN pain PERCOCET 7.5- 325 MG TABS 4253959 OXYCODONE-ACETAMINOPHEN Inactive MOBIC 15 MG TABS 1 tab daily MOBIC 15 MG TABS 15 2695 MELOXICAM Inactive CYCLOBENZAPRINE HCL 10 MG TABS 1/2 - 1 tab PO tid PRN back p ain, muscle spasm CYCLOBENZAPRINE HCL 10 MG TABS 579627 CYCLOBENZA JOSEPH HCL Inactive LORATADINE 10 MG TABS 1 tablet by mouth daily LORATADINE 10 MG TABS 185888 LORATADINE Inactive HYDROCODONE-ACETAMINOPHEN 10-325 MG TABS 1 by mouth ev chaka 8 hours as needed for pain HYDROCODONE-ACETAMINOPHEN 10-325 MG TABS 387615 HYDROCODONE-ACETAMINOPHEN Inactive LC-5 LIDOCAINE 5 % CREA apply 1 time daily to affected area 2013 LC-5 LIDOCAINE 5 % CREA 6402603 LIDOCAINE (ANORECTAL) In active PERCOCET 5-325 MG TAB 1 every 6 hours as needed PERCOCET 5-325 MG TAB 2099331 OXYCODONE-ACETAMINOPHEN Inactive KEFLEX 500 MG CAP 1 po qid KEFLEX 500 MG CAP 30 9114 CEPHALEXIN Inactive PROAIR HFA 108 (90 BASE) MCG/ACT AERS 2 puff q 4-6 hrs PRN 01/24 PROAIR HFA 108 (90 BASE) MCG/ACT AERS ALBUTEROL SULFATE Inactive PERCOCET 10-325 MG ORAL TABS 1 every 4 hours as needed PERCOCET 10-325 MG ORAL TABS 7082542 OXYCODONE-ACETAMINOPHEN Inactiv e EMLA 2.5-2.5 % EXT CREA apply to skin lesion q 6 hours, prn 2014 EMLA 2.5-2.5 % EXT CREA 988561 LIDOCAINE-PRILOCAINE [place] ctive PERCOCET 10-325 MG TABS 1 tab by mouth every 6 hours , use sparingly for severe pain PERCOCET 10-325 MG TABS 2699017 OXYCODONE-ACETAMINOPHEN Inactive GLUCOPHAGE 500 MG ORAL TABS one by mouth 3 times a day GLUCOPHAGE 500 MG ORAL TABS 781098 METFORMIN HCL Inactive HYDROCODONE-ACETAMINOPHEN 5-325 MG TABS 1 po q6hr PRN pain 06/30 HYDROCODONE-ACETAMINOPHEN 5-325 MG TABS 873258 HYDROCOD ONE-ACETAMINOPHEN Inactive PERCOCET 5-325 MG TAB 1 tab po q 6 -8 hours, prn for severe pain PERCOCET 5-325 MG TAB 7284653 OXYCODONE-ACETAMINOPHEN In active PERCOCET 5-325 MG ORAL TABS 1 every 6 hours as needed PERCOCET 5-325 MG ORAL TABS [id number] OXYCODONE-ACETAMINOPHEN Inactive DICLOFENAC SODIUM 50 MG TBEC 1 tablet by mouth four times da tom PRN Pain DICLOFENAC SODIUM 50 MG TBEC [id number] DICLOFENAC S ODIUM Inactive AUGMENTIN 500-125 MG ORAL TABS 1 by mouth twice a day AUGMENTIN 500-125 MG ORAL TABS [id number] AMOXICILLIN-POT CLAVULANATE I nactive HYDROCODONE-ACETAMINOPHEN 5-325 MG TABS 1 po q6hr PRN Pain 03/09 HYDROCODONE-ACETAMINOPHEN 5-325 MG TABS [id number] HYDROCOD ONE-ACETAMINOPHEN Inactive CYCLOBENZAPRINE HCL 10 MG TABS 1 tablet by mouth three times daily as needed for muscle spasm/pain CYCLOBENZAPRINE HCL 10 MG TABS [id number] CYCLOBENZAPRINE HCL Inactive SPRINTEC 28 0.25-35 MG-MCG TABS 1 pill by mouth daily for bi rth control SPRINTEC 28 0.25-35 MG-MCG TABS [id number] NORGESTIMATE-ETH ESTRADIOL Inactive PERCOCET 5-325 MG TAB 1 tab po q 6 hours, prn severe pain PERCOCET 5-325 MG TAB [id number] OXYCODONE-ACETAMINOPHEN Inactive IBUPROFEN 600 MG ORAL TABS 1 by mouth twice a day 2014 IBUPROFEN 600 MG ORAL TABS [id number] IBUPROFEN Inactive CYMBALTA 30 MG CPEP 1 cap by mouth daily CYMBALTA 30 MG CPEP [id number] DULOXETINE HCL Inactive HYDROCODONE-ACETAMINOPHEN 5-325 MG TABS 1 po q6hr PRN Pain 04/09 HYDROCODONE-ACETAMINOPHEN 5-325 MG TABS [id number] HYDROCOD ONE-ACETAMINOPHEN Inactive TRAZODONE HCL 100 MG TAB 0.5 to 1 po qHS PRN Insomnia TRAZODONE HCL 100 MG TAB [id number] TRAZODONE HCL Inactive ALPRAZOLAM 0.5 MG TABS 1 po BID PRN Anxiety ALPRAZOLAM 0.5 MG TABS [id number] ALPRAZOLAM Inactive [id number] 50-325-40 MG ORAL CAPS 1-2 po TID MA N Headache [id number] 50-325-40 MG ORAL CAPS 2 [id number] [id number] Inactive HYDROCODONE-ACETAMINOPHEN 5-325 MG TABS 1 po TID PRN Pain 9 HYDROCODONE-ACETAMINOPHEN 5-325 MG TABS [id number] HYDROCODONE-ACETAMIN OPHEN Inactive PERCOCET 10-325 MG TABS 1 tablet every 8 hours as needed for antonia n PERCOCET 10-325 MG TABS [id number] OXYCODONE-ACETAMINOPHEN Inactive ONDANSETRON 4 MG TBDP 1 q4h PRN nausea ON DANSETRON 4 MG TBDP [id number] ONDANSETRON Inactive VIIBRYD 10 & 20 & 40 MG KIT 1 po qd as directed 07/24 VIIBRYD 10 & 20 & 40 MG KIT VILAZODONE HCL Inactive DICLOFENAC SODIUM 50 MG TBEC 1 tablet by mouth four times da tom PRN Pain DICLOFENAC SODIUM 50 MG TBEC [id number] DICLOFENAC S ODIUM Inactive PERCOCET 10-325 MG ORAL TABS one every 6 hours prn pain PERCOCET 10-325 MG ORAL TABS [id number] OXYCODONE-ACETAMINOPHEN Inactiv e PERCOCET 10-325 MG ORAL TABS take 1 tab by mouth q 4hours as needed for pain PERCOCET 10-325 MG ORAL TABS [id number] OXYCODONE-ACETAMINOPHEN Inactive FLONASE ALLERGY RELIEF 50 MCG/ACT NASAL SUSP One spray in each nostril twice a day. FLONASE ALLERGY RELIEF 50 MCG/ACT NASAL S PRISON 782477 FLUTICASONE PROPIONATE Inactive AUGMENTIN 875-125 MG TAB 1 tab by mouth twice daily with food 20 23/05/16 AUGMENTIN 875-125 MG TAB [id number] AMOXICILLIN-POT [place] Inactive HYDROCODONE-ACETAMINOPHEN 5-325 MG TABS 1 tab by mouth every 6 hours as needed for pain HYDROCODONE-ACETAMINOPHEN 5-325 MG TABS 8 71006 HYDROCODONE-ACETAMINOPHEN Inactive PERCOCET 10-325 MG TABS 1 tablet every 8 hours as needed for antonia n PERCOCET 10-325 MG TABS [id number] OXYCODONE-ACETAMINOPHEN Inactive LC-4 LIDOCAINE 4 % EXT CREA apply q 6 hours, prn 08/03 LC-4 LIDOCAINE 4 % EXT CREA [id number] LIDOCAINE Inactive AMOXICILLIN 875 MG TABS 1 tab by mouth twice daily 201 07/18/07 AMOXICILLIN 875 MG TABS 353920 AMOXICILLIN Inactive KEFLEX 500 MG CAP 1 po tid x 10 days KEFLEX 500 MG CAP 591031 CEPHALEXIN Inactive AMOXICILLIN 875 MG TABS 1 tab by mouth twice daily 201 07/19/27 AMOXICILLIN 875 MG TABS 839329 AMOXICILLIN Inactive AMOXICILLIN 875 MG TABS 1 tab by mouth twice daily 201 08/09/13 AMOXICILLIN 875 MG TABS 950378 AMOXICILLIN Inactive CIPRO 500 MG TAB 1 tablet by mouth twice daily CIPRO 500 MG TAB 654608 CIPROFLOXACIN HCL Inactive BACTRIM DS 800-160 MG TAB 1 tab by mouth twice daily 2 BACTRIM DS 800-160 MG TAB 975263 TRIMETHOPRIM-SULFAMETHOXAZOLE Inac tive LEVAQUIN 500 MG TABS 1 PO q day x 7 days LEVAQUIN 500 MG TABS 880237 LEVOFLOXACIN Inactive CLINDAMYCIN HCL 300 MG CAPS 1 po QID x 7 days CLINDAMYCIN HCL 300 MG CAPS 256890 CLINDAMYCIN HCL Inactive AUGMENTIN 875-125 MG TAB 1 tab by mouth twice daily with food 20 22/05/07 AUGMENTIN 875-125 MG TAB 783039 AMOXICILLIN-POT [place] Inactive DIFLUCAN 150 MG TAB 1 qODay x 2 doses DIFLUCAN 150 MG TAB 557585 FLUCONAZOLE Inactive PREDNISONE 20 MG TAB 2 tabs daily for 3 days, 1 t ab daily for 3 days, 1/2 tab daily for 2 days PREDNISONE 20 MG TAB 889796 PREDNISON E Inactive AUGMENTIN 875-125 MG TAB 1 tab by mouth twice daily with food 20 21/10/13 AUGMENTIN 875-125 MG TAB 035807 AMOXICILLIN-POT [place] Inactive HYDROCODONE-ACETAMINOPHEN 5-325 MG TABS 1 tab by mouth every 6 hours as needed PRN Pain HYDROCODONE-ACETAMINOPHEN 5-325 MG TABS 8 35579 HYDROCODONE-ACETAMINOPHEN Inactive PROMETHAZINE HCL 25 MG TABS 1 four times a day as needed for nausea/vomiting PROMETHAZINE HCL 25 MG TABS 344977 PROMETHAZINE HCL Inactive Advance Directives Directive Description Start Date PERMISSION TO SHARE Immunizations Vaccine Administration Date Value Standard Alf cription Seasonal influenza vaccine, injectable, containing preservative, for > 3 years old (Afluria, FluLaval, Fluzone, Fluvirin, Fluarix, Agriflu(>= 18 yo)) Fluzone (>3 yrs.) [[id number]] Influenza, seasonal, inject able Seasonal influenza vaccine, injectable, preservative free, for > 3 years old (Afluria, FluLaval, Fluzone, Fluvirin, Fluarix, Agriflu(>= 18 yo)) Fluzone preservative free (>3 yrs.) [[id number]] Influenza, seasonal, injectable, preservative free Seasonal influenza vaccine, injectable, containing preservative, for > 3 years old (Afluria, FluLaval, Fluzone, Fluvirin, Fluarix, Agriflu(>= 18 yo)) Fluzone (>3 yrs.) [[id number]] Influenza, seasonal, inject able Seasonal influenza vaccine, injectable, containing preservative, for > 3 years old (Afluria, FluLaval, Fluzone, Fluvirin, Fluarix, Agriflu(>= 18 yo)) Fluzone (>3 yrs.) [[id number]] Influenza, seasonal, inject able dT (Diphtheria and Tetanus) booster given [facility](adult) unspecified formulation Vital Signs Date Name Value Unit Range Description blood pressure, diastolic - 8462-4 116 mm[Hg] [...] Panel - Chemistry sodium, serum 142 mmol/L 345-108 0035/05/12 potassium, serum 4.8 mmol/L 3.5-5.2 chloride, serum [...] Panel - Chemistry cholesterol, serum 181 mg/dL 232-218 3439/09/01 triglyceride, serum, fasting 341 mg/dL 30-200 HDL cholesterol, serum 22 mg/dL 32-96 LDL cholesterol, serum 91 mg/dL 0-130 cholesterol, serum 165 mg/dL 932-818 1021/05/12 triglyceride, serum, fasting 524 mg/dL 30-200 HDL [...] negative Encounters Code Encounter Date Provider Facility CPT-53470 Level 3 Est. Patient 05:31:41 HELP DESK SPECIALIST Kalpesh goins MD [facility] CPT-62832 Level 3 Est. Patient 11:22:02 HELP DESK SPECIALIST Hira muniz APRN [facility] CPT-39862 Level 3 Est. Patient 21:00:18 HELP DESK SPECIALIST Rajni danielson [facility] CPT-32627 Level 3 Est. Patient 14:15:00 HELP DESK SPECIALIST Kalpesh goins MD [facility] CPT-18601 Level 2 Est. Patient 19:57:52 HELP DESK SPECIALIST Rajni danielson [facility] CPT-45564 Level 3 Est. Patient 16:58:40 HELP DESK SPECIALIST Bj funes MD [facility] CPT-90996 Level 3 Est. Patient 08:51:33 CDT Kalpesh goins MD [facility] CPT-37592 Level 4 Est. Patient 14:14:53 CDT Abdirahman Rios MD [facility] CPT-65143 Level 3 Est. Patient 15:47:40 CDT Kalpesh goins MD [facility] CPT-74388 Level 3 Est. Patient 10:57:26 CDT Abdirahman Rois MD [facility] CPT-11587 Level 3 Est. Patient 14:29:53 CDT Abhinav Galvan MD [facility] CPT-83342 Level 2 Est. Patient 16:33:01 CDT Kalpesh goins MD [facility] CPT-09889 Level 4 Est. Patient 16:44:56 CDT Abdirahman Rios MD [facility] CPT-61193 Level 2 Est. Patient 07:49:32 CDT Kalpesh goins MD [facility] CPT-66873 Level 3 New Patient 15:47:11 HELP DESK SPECIALIST Bj huber MD [facility] CPT-74161 Level 4 Est. Patient 14:37:38 HELP DESK SPECIALIST Abdirahman Rios MD [facility] CPT-40606 Level 2 Est. Patient 13:32:17 HELP DESK SPECIALIST Kalpesh goins MD [facility] CPT-67974 Level 3 Est. Patient 17:32:57 HELP DESK SPECIALIST Edilberto tiwari [facility] CPT-63178 Level 3 Est. Patient 17:22:33 HELP DESK SPECIALIST Edilberto tiwari [facility] CPT-69734 Level 2 Est. Patient 16:57:09 HELP DESK SPECIALIST Kalpesh goins MD [facility]-30353 Level 3 Est. Patient 14:03:08 HELP DESK SPECIALIST Abdirahman Rios MD [facility] CPT-71669 Level 3 Est. Patient 18:12:34 CDT Shola Wright [facility] CPT-31119 Level 3 Est. Patient 19:34:[address] [facility] CPT-74492 Level 3 Est. Patient 14:19:37 CDT Abdirahman Rios MD [facility] CPT-13202 Level 3 Est. Patient 14:11:58 CDT Kalpesh goins MD [facility]-71275 Level 3 Est. Patient 16:50:00 CDT Michelle MERCADO [facility] CPT-64812 Level 3 Est. Patient 17:11:32 HELP DESK SPECIALIST Brandie bates MD, PhD [facility]-25231 Level 3 Est. Patient 16:31:47 HELP DESK SPECIALIST Shola Wright [facility] CPT-38796 Level 3 Est. Patient 17:51:10 HELP DESK SPECIALIST Abhinav Galvan MD [facility] CPT-96441 Level 4 Est. Patient 12:54:56 HELP DESK SPECIALIST Kalpesh goins MD [facility] CPT-55448 Level 4 Est. Patient 12:53:56 HELP DESK SPECIALIST Kalpesh goins MD [facility]-84142 Level 3 Est. Patient 17:56:58 CDT Shola Wright [facility] CPT-70768 Level 3 Est. Patient 14:26:20 CDT Janak butcher [facility] CPT-17248 Level 3 Est. Patient 09:38:41 CDT Shola Thao Adriana [facility] CPT-48111 Level 3 Est. Patient 14:45:26 CDT Edilberto tiwari [facility] CPT-71352 Level 3 Est. Patient 10:51:33 CDT Hira muniz [facility] CPT-61311 Level 3 Est. Patient 11:57:55 HELP DESK SPECIALIST Shola Thao Adriana [facility] CPT-66055 Level 3 Est. Patient 09:53:33 HELP DESK SPECIALIST Edilberto tiwari [facility] CPT-91541 Level 3 Est. Patient 14:42:54 HELP DESK SPECIALIST Abhinav Galvan MD [facility] CPT-34904 Level 3 Est. Patient 15:10:02 CDT Janak butcher [facility] CPT-61160 Level 3 Est. Patient 15:20:20 CDT Theo dennis MD [facility] CPT-89111 Level 2 Est. Patient 14:08:57 CDT Kalpesh goins MD [facility] CPT-92201 Level 3 Est. Patient 13:56:19 CDT Abdirahman Rios MD [facility] CPT-33027 Level 3 Est. Patient 13:59:37 CDT Abdirahman Rios MD [facility] CPT-48996 Level 2 Est. Patient 14:44:59 CDT Kalpesh goins MD [facility]-65917 Level 3 Est. Patient 06:06:23 CDT Edilberto tiwari [facility] CPT-72326 Level 3 Est. Patient 15:23:54 CDT Abdirahman Rios MD [facility] CPT-77443 Level 3 Est. Patient 15:43:49 CDT Abdirahman Rios MD [facility] CPT-45987 Level 3 Est. Patient 12:46:47 HELP DESK SPECIALIST Abdirahman Rios MD [facility] CPT-88412 Level 3 Est. Patient 08:13:35 HELP DESK SPECIALIST Abdirahman Rios MD [facility] CPT-10191 Level 2 Est. Patient 09:36:42 HELP DESK SPECIALIST Abdirahman Rios MD [facility] CPT-81144 Level 3 Est. Patient 10:56:43 CDT Abdirahman Rios MD [facility] CPT-75185 Level 3 Est. Patient 18:24:52 CDT Abdirahman Rios MD [facility] CPT-58374 Level 3 Est. Patient 13:27:22 CDT Abdirahman Rios MD [facility] Procedures Code Procedure Name Date Entry Date Standard Desc ription CPT-57340 Postop F/U Visit 17:09:41 HELP DESK SPECIALIST CPT-35452 Postop F/U Visit 14:08:43 HELP DESK SPECIALIST CPT-20586 Postop F/U Visit 15:18:16 HELP DESK SPECIALIST CPT-62770 Postop F/U Visit 15:03:49 HELP DESK SPECIALIST CPT-51993 Postop F/U Visit 14:45:23 HELP DESK SPECIALIST CPT-46841 Postop F/U Visit 14:11:03 HELP DESK SPECIALIST CPT-09128 Postop F/U Visit 18:21:21 HELP DESK SPECIALIST CPT-77205 Postop F/U Visit 15:57:12 HELP DESK SPECIALIST CPT-16899 Bladder Instillation 16:58:41 HELP DESK SPECIALIST 6 CPT-42164 Fluzone Quadrivalent Intramuscular Suspe nsion 0.5 ML 15:20:56 HELP DESK SPECIALIST CPT-51694 Immunization Single Admin 15:20:56 HELP DESK SPECIALIST 2014 CPT-01238 Excis pilonidal cyst simple 08:51:34 CDT 20 22/04/20 CPT-27362 Venipuncture Draw Fee 14:27:29 CDT CPT-56184 Postop F/U Visit 15:27:43 CDT CPT-57407 Postop F/U Visit 14:40:59 CDT CPT-06332 Postop F/U Visit 15:02:46 CDT CPT-22508 Postop F/U Visit 11:29:00 HELP DESK SPECIALIST CPT-J0696 Rocephin 1000 mg (Ceftriaxone) 17:22:33 HELP DESK SPECIALIST CPT-26371 Postop F/U Visit 18:41:07 HELP DESK SPECIALIST CPT-12962 Postop F/U Visit 08:19:08 HELP DESK SPECIALIST CPT-62208 Immunization Single Admin 16:41:53 CDT 2013 CPT-13062 Fluzone Quadrivalent Intramuscular Suspe nsion 0.5 ML 16:41:53 CDT CPT-OV Office Visit 16:39:18 CDT CPT-OV Office Visit 16:16:36 CDT CPT-OV Office Visit 15:34:48 CDT CPT-91790 Postop F/U Visit 14:50:12 CDT CPT-87781 Postop F/U Visit 14:41:10 CDT CPT-51094 Venipuncture Draw Fee 11:38:04 HELP DESK SPECIALIST CPT-87759 Postop F/U Visit 19:02:59 HELP DESK SPECIALIST CPT-70672 Postop F/U Visit 12:04:54 HELP DESK SPECIALIST CPT-90977 Administration single or combination vac cine inc oral 15:56:43 CDT CPT-08027 Influenza split virus > age 3 15:56:43 CDT CPT-47907 Hand comp min 3V 14:25:19 CDT CPT-05958 Postop F/U Visit 21:40:51 CDT CPT-31640 Postop F/U Visit 10:58:43 CDT CPT-96465 Administration single or combination vac cine inc oral 12:33:54 HELP DESK SPECIALIST CPT-47124 Influenza Preservative Free split virus >age 3 12:33:54 HELP DESK SPECIALIST CPT-09782 Administration single or combination vac cine inc oral 09:30:51 CDT CPT-00327 Influenza split virus > age 3 09:30:51 CDT CPT-89662 Postop F/U Visit 15:14:53 CDT CPT-23529 Postop F/U Visit 13:50:14 CDT CPT-79400 Postop F/U Visit 13:34:52 CDT CPT-OV Office Visit 16:55:03 CDT CPT-37888 [place] of cervix w bx ECC 13:32:50 CDT 10/19 CPT-J1885 Toradol 60 mg (Ketorolac) 15:31:59 CDT 2011 CPT-J1885 Toradol 60 mg (Ketorolac) 15:23:54 CDT 2011 CPT-13183 Visit 11:34:37 HELP DESK SPECIALIST CPT-95188 Visit 10:52:39 HELP DESK SPECIALIST CPT-32555 Visit 10:12:02 HELP DESK SPECIALIST CPT-99407 Visit 11:22:43 HELP DESK SPECIALIST CPT-31503 Visit 11:24:12 HELP DESK SPECIALIST CPT-76803 Visit 10:47:05 HELP DESK SPECIALIST CPT-OV Office Visit 10:26:16 HELP DESK SPECIALIST CPT-OV Office Visit 15:34:31 HELP DESK SPECIALIST CPT-56125 Visit 10:42:08 HELP DESK SPECIALIST CPT-13569 Visit 10:52:45 HELP DESK SPECIALIST CPT-000 Give Appropriate Flu Vaccine 16:56:41 CDT 2 CPT-15063 Administration single or combination vac cine inc oral 10:33:21 CDT CPT-10809 Influenza split virus > age 3 10:33:21 CDT CPT-39850 Visit 13:23:09 CDT CPT-84799 Visit 18:24:52 CDT CPT-60174 Sono OB comp > 14 weeks 12:07:49 CDT 04/07
--- OUTSIDE RECORDS SUMMARY | 2020-01-18 16:06 | XMS REPORT | Clinical Summary ---
Author Author Avery, Jeri Rashid Organization 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 Alcazar BLACKSMITH HELPER Acute sinusitis, unspecified BACK PAIN 724.5 Resolved [...] ABDOMINAL ABSCESS ICD-682.2 Inactive Abdirahman sanchez MD MASTALGIA ICD-611.71 Inactive Abdirahman Carr BACK PAIN ICD-724.5 Inactive Abdirahman Rios MD , NORMAL ICD-V22.2 Inactive Abdirahman sanchez MD UNSPEC LOCAL INFECTION SKIN&SUBCUTANEOUS TISSUE ICD-686.9 08/09 Inactive Abdirahman Rios MD OTH SPEC LOCAL INFECTIONS SKIN&SUBCUT TISSUE ICD-686.8 2 Inactive Abdirahman Rios MD VAGINAL DISCHARGE ICD-623.5 Inactive Abdirahman sanchez MD URETHRITIS ICD-597.80 Inactive Good mlechor MD ABSCESS ICD-682.9 Jose M collier MD [...] SYS NEC ICD-V58.75 Jose M Julian MD , INCIDENTAL PROBLEM ICD-V22.2 Inacti ve Abdirahman Rios MD ACUTE BRONCHITIS ICD-466.0 Inactive Good Julian MD JAW PAIN ICD-526.9 Jose M collier MD DENTAL CARIES ICD-521.00 Inactive Good [...] 6 hours as needed for pain HYDROCODONE-ACETAMINOPHEN 88771363590 No Longer Active Kalpesh Dong MD Active PERCOCET 10-325 MG ORAL TABS 1 every 4 hous as needed OXYCODONE-ACETAMINOPHEN 91985149478 Active Abdirahman Rios MD Active GLYDO 2 % EXT GEL apply to painful areas as needed LIDOCAINE HCL 66053347830 Active Kalpesh Dong MD Active LC-4 LIDOCAINE 4 % EXT CREA apply to painful area every 12 h ours or as needed LIDOCAINE 46779190696 Active Kalpesh Dong MD Active AUGMENTIN 875-125 MG TAB 1 tab by mouth twice daily with food 20 23/05/16 AMOXICILLIN-POT CLAVULANATE 64897160729 No Longer Active Lizeth hi Yokum [employer]SMITH HELPER 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 FLUTICASONE PROPIONATE 17696196607 No Longer Ac tive Rajni Yokum [employer]ACKSMITH HELPER Active PERCOCET 10-325 MG ORAL TABS take 1 tab by mouth q 4hours as needed for pain OXYCODONE-ACETAMINOPHEN 01922261220 No Longer Active Rajni Yokum BLACKSMITH HELPER Active PERCOCET 10-325 MG ORAL TABS one every 6 hours prn pain OXYCODONE-ACETAMINOPHEN 60532907087 No Longer Active Rajni Yokum [employer]SMITH HELPER Active IBUPROFEN 800 MG TABS 1 tab po tid, with food I BUPROFEN 89874037749 Active Karenina Joyzell BLACKSMITH HELPER Active PERCOCET 10-325 MG TABS 1 tablet every 8 hours as needed for pain 2 OXYCODONE-ACETAMINOPHEN 83059648569 Active Rajni Yokum BLACKSMITH HELPER Active DICLOFENAC SODIUM 50 MG TBEC 1 tablet by mouth four times da tom PRN Pain DICLOFENAC SODIUM 27588844750 No Longer Active Rajni Yokum [employer]ACKSMITH HELPER Active VIIBRYD 10 & 20 & 40 MG KIT 1 po qd as directed 07/24 VILAZODONE HCL 44152128582 No Longer Active Rajni Yokum BL[employer]SMITH HELPER Active ONDANSETRON 4 MG TBDP 1 q4h PRN nausea ONDANSET KELBY 00342629472 No Longer Active Rajni Yokum BLACKSMITH HELPER Active PERCOCET 10-325 MG TABS 1 tablet every 8 hours as needed for antonia n OXYCODONE-ACETAMINOPHEN 77857590605 No Longer Active Rajni cox BLACKSMITH HELPER Active HYDROCODONE-ACETAMINOPHEN 5-325 MG TABS 1 po TID PRN Pain 9 HYDROCODONE-ACETAMINOPHEN 81101309275 No Longer Active Abdirahman Rios MD Active LC-4 LIDOCAINE 4 % EXT CREA apply q 6 hours, prn LIDOCAINE 90300438173 Active Hira Joyjanee BLACKSMITH HELPER Active [id number] 50-325-40 MG ORAL CAPS 1-2 po TID ME N Headache [id number] 56478787324 No Longer Act krishna Kalpesh Dong MD Active ALPRAZOLAM 0.5 MG TABS 1 po BID PRN Anxiety ALP RAZOLAM 36348652393 No Longer Active Kalpesh Dong MD Active TRAZODONE HCL 100 MG TAB 0.5 to 1 po qHS PRN Insomnia TRAZODONE HCL 37716563195 No Longer Active Kalpesh Dong MD Activ e HYDROCODONE-ACETAMINOPHEN 5-325 MG TABS 1 po q6hr PRN Pain 04/09 HYDROCODONE-ACETAMINOPHEN 66649840469 No Longer Active Kalpesh Dong MD Active CYMBALTA 30 MG CPEP 1 cap by mouth daily DULOXE CLEO HCL 58049634762 No Longer Active Abdirahman Rios MD Active IBUPROFEN 600 MG ORAL TABS 1 by mouth twice a day 2014 IBUPROFEN 13870466388 No Longer Active Abdirahman Rios MD Activ e PERCOCET 5-325 MG TAB 1 tab po q 6 hours, prn severe pain 1 OXYCODONE-ACETAMINOPHEN 01507209074 No Longer Active Abdirahman Rios MD Active SPRINTEC 28 0.25-35 MG-MCG TABS 1 pill by mouth daily for bi rth control NORGESTIMATE-ETH ESTRADIOL 67056132536 No Longer Acti ve Hira Moser BLACKSMITH HELPER Active CYCLOBENZAPRINE HCL 10 MG TABS 1 tablet by mouth three times daily as needed for muscle spasm/pain CYCLOBENZAPRINE HCL 55057474932 No Longer Active Hira Moser BLACKSMITH HELPER Active HYDROCODONE-ACETAMINOPHEN 5-325 MG TABS 1 po q6hr PRN Pain 03/09 HYDROCODONE-ACETAMINOPHEN 56316701768 No Longer Active Matthewllina Karmen l BLACKSMITH HELPER Active AUGMENTIN 500-125 MG ORAL TABS 1 by mouth twice a day AMOXICILLIN-POT CLAVULANATE 39639402718 No Longer Active Matthewllina Karmenl BLACKSMITH HELPER Active DICLOFENAC SODIUM 50 MG TBEC 1 tablet by mouth four times da tom PRN Pain DICLOFENAC SODIUM 04275838518 No Longer Active Karenin a Shanti BLACKSMITH HELPER Active PROMETHAZINE HCL 25 MG TABS 1 four times a day as needed for nausea/vomiting PROMETHAZINE HCL 87886694705 No Longer Active Abdirahman Rios MD Active HYDROCODONE-ACETAMINOPHEN 5-325 MG TABS 1 tab by mouth every 6 hours as needed PRN Pain HYDROCODONE-ACETAMINOPHEN 14611032910 No Longer Active Abdirahman Rios MD Active GEMFIBROZIL 600 MG TABS 1 po BID GEMFIBROZIL 94728234 005 Active Abdirahman Rios MD Active PERCOCET 5-325 MG ORAL TABS 1 every 6 hours as needed OXYCODONE-ACETAMINOPHEN 09273087220 No Longer Active Abdirahman Rios MD Active PERCOCET 5-325 MG TAB 1 tab po q 6 -8 hours, prn for severe pain OXYCODONE-ACETAMINOPHEN 26596040773 No Longer Active Abdirahman Rios MD Active HYDROCODONE-ACETAMINOPHEN 5-325 MG TABS 1 po q6hr PRN pain 06/30 HYDROCODONE-ACETAMINOPHEN 84823541494 No Longer Active Hira roman BLACKSMITH HELPER Active GLUCOPHAGE 500 MG ORAL TABS one by mouth 3 times a day METFORMIN HCL 35635965087 No Longer Active Karenina Shanti BLACKSMITH HELPER Ac tive PERCOCET 10-325 MG TABS 1 tab by mouth every 6 hours , use sparingly for severe pain OXYCODONE-ACETAMINOPHEN 10088698872 No Longer A ctive Abdirahman Rios MD Active EMLA 2.5-2.5 % EXT CREA apply to skin lesion q 6 hours, prn 2014 LIDOCAINE-PRILOCAINE 18137071203 No Longer Active Abdirahman Rios MD Active PERCOCET 10-325 MG ORAL TABS 1 every 4 hours as needed OXYCODONE-ACETAMINOPHEN 94472731933 No Longer Active Abdirahman Rios MD Active AUGMENTIN 875-125 MG TAB 1 tab by mouth twice daily with food 20 21/10/13 AMOXICILLIN-POT CLAVULANATE 00546735139 No Longer Active Ursula Moser APRN Active PROAIR HFA 108 (90 BASE) MCG/ACT AERS 2 puff q 4-6 hrs PRN 01/24 ALBUTEROL SULFATE 23726478358 No Longer Active Kalpesh Dogn MD Active PREDNISONE 20 MG TAB 2 tabs daily for 3 days, 1 t ab daily for 3 days, 1/2 tab daily for 2 days PREDNISONE 67035065925 No Longer Active Abdirahman Rios MD Active KEFLEX 500 MG CAP 1 po qid CEPHALEXIN 738911305 20 No Longer Active Kalpesh Dong MD Active PERCOCET 5-325 MG TAB 1 every 6 hours as needed OXYCODONE-ACETAMINOPHEN 29473126278 No Longer Active Shola MCGILL Active LC-5 LIDOCAINE 5 % CREA apply 1 time daily to affected area 2013 LIDOCAINE (ANORECTAL) 30156162497 No Longer Active Hira muniz APRN Active HYDROCODONE-ACETAMINOPHEN 10-325 MG TABS 1 by mouth ev chaka 8 hours as needed for pain HYDROCODONE-ACETAMINOPHEN 04038673753 No Longer Active Jillina Frazell BLACKSMITH HELPER Active LORATADINE 10 MG TABS 1 tablet by mouth daily L ORATADINE 39682802360 No Longer Active Jillina Frazell BLACKSMITH HELPER Active DIFLUCAN 150 MG TAB 1 qODay x 2 doses FLUCONAZO LE 47392906895 No Longer Active Jillina Frazell BLACKSMITH HELPER Active CYCLOBENZAPRINE HCL 10 MG TABS 1/2 - 1 tab PO tid PRN back p ain, muscle spasm CYCLOBENZAPRINE HCL 45189247313 No Longer Active Karen siri Frazell BLACKSMITH HELPER Active AUGMENTIN 875-125 MG TAB 1 tab by mouth twice daily with food 20 22/05/07 AMOXICILLIN-POT CLAVULANATE 68660613277 No Longer Active Loida Rios MD Active MOBIC 15 MG TABS 1 tab daily MELOXICAM 010957451 14 No Longer Active Abdirahman Rios MD Active PERCOCET 7.5-325 MG TABS 1 PO tid PRN pain OXYCODONE-ACETAMINOPHEN 91148586312 No Longer Active Abdirahman Rios MD Active LIDODERM 5 % PTCH One patch to painful area ME N. On for 12 hrs, off for 12 hrs. LIDOCAINE 78940979812 No Longer Active Abdirahman Rios MD Active PERCOCET 7.5-325 MG TABS 1 PO q 8 hrs PRN pain OXYCODONE-ACETAMINOPHEN 26785383656 No Longer Active Shola MCGILL Active HYDROCODONE-ACETAMINOPHEN 7.5-325 MG TABS 1 by mouth e very 6 hours as needed for pain HYDROCODONE-ACETAMINOPHEN 58209252936 No Longer Active Good Julian MD Active CLINDAMYCIN HCL 300 MG CAPS 1 po QID x 7 days CLINDAMYCIN HCL 00454114095 No Longer Active Abdirahman Rios MD Activ e BACTRIM DS 800-160 MG TABS 1 po BID x 7 days 5 SULFAMETHOXAZOLE-TRIMETHOPRIM 85674535179 No Longer Active Abdirahman Rios MD Active ENDOCET 10-325 MG TABS 1 q 6 hr prn OXYCODONE-ACETAMINOPHEN 14791950392 No Longer Active Abdirahman Rios MD Active IBUPROFEN 800 MG TABS 1 tid prn IBUPROFEN 404766 07738 No Longer Active Abdirahman Rios MD Active BACTRIM DS 800-160 MG TABS by mouth twice a day 11/05 SULFAMETHOXAZOLE-TRIMETHOPRIM 56844763108 No Longer Active Good Julian MD Active HYDROCODONE-ACETAMINOPHEN 7.5-325 MG TABS 1 four times a day as needed for pain HYDROCODONE-ACETAMINOPHEN 99944633702 No Longer Activ e Good Julian MD Active KEFLEX 500 MG CAP 1 tab po tid CEPHALEXIN 305450 77879 No Longer Active Hira Moser APRN Active IBUPROFEN 800 MG TAB 1 pill three times daily as needed for pain IBUPROFEN 72369282890 No Longer Active Kalpesh Dong MD Active PROMETHAZINE-CODEINE 6.25-10 MG/5ML SYRP 1 tsp every 6 hrs prn c ough PROMETHAZINE-CODEINE 14290733072 No Longer Active Kalpesh Carr Active HYDROCODONE-ACETAMINOPHEN 5-325 MG TABS 1 tab by mouth every 6 hours as needed HYDROCODONE-ACETAMINOPHEN 31547099055 No Longer Activ e Shola MCGILL Active CEPHALEXIN 500 MG CAPS 1 PO bid x 7 days CEPHAL EXIN 73010165654 No Longer Active Shola MCGILL Active BACTRIM DS 800-160 MG TAB 1 tab by mouth twice daily 2 TRIMETHOPRIM-SULFAMETHOXAZOLE 19201046354 No Longer Active Kalpesh Dong MD Active HYDROCODONE-ACETAMINOPHEN 5-325 MG TABS 1 PO tid PRN pain 5 HYDROCODONE-ACETAMINOPHEN 50811966290 No Longer Active Abhinav Galvan MD Active IMPLANON 68 MG IMPL IMPLANTED IN LEFT ARM ETONO GESTREL 38893050471 No Longer Active Hira Moser APRN Active AMOXICILLIN 500 MG TABS 2 tabs PO bid x 10 d AM OXICILLIN 62090741691 No Longer Active Kalpesh Dong MD Active LEVAQUIN 500 MG TABS 1 PO q day x 7 days LEVOFL OXACIN 97305324547 No Longer Active Shola MCGILL Active AMITRIPTYLINE HCL 25 MG TAB 1 tab by mouth daily 60 minutes before bedtime AMITRIPTYLINE HCL 79079138344 No Longer Active Shola MCGILL Active LORTAB 5 5-500 MG TABS 1/2 to 1 tablet by mouth go ry 6 hours as needed for pain HYDROCODONE-ACETAMINOPHEN 67590755802 No Longer Active Shola MCGILL Active CEPHALEXIN 500 MG TABS Take one by mouth four times daily, morning, noon, early evening and bedtime. CEPHALEXIN 57796193824 No Long er Active Hira Moser APRN Active TYLENOL/CODEINE #3 300-30 MG TAB 1-2 po q6hr PRN Pain ACETAMINOPHEN-CODEINE 23224306098 No Longer Active Edilberto Marino DO Active PRISTIQ 50 MG [id number] 1 po qd DESVENLAFAXI NE SUCCINATE 98424508860 No Longer Active Edilberto Marino DO Active PENICILLIN V POTASSIUM 500 MG TAB 1 four times a day 2 PENICILLIN V POTASSIUM 85654326863 No Longer Active Edilberto Marino DO Active DOXYCYCLINE HYCLATE 100 MG CAPS Take one (1) tablet by mouth twice a day DOXYCYCLINE HYCLATE 15161049370 No Longer Active Ronnie Galvan MD Active HYDROCODONE-ACETAMINOPHEN 5-325 MG TABS 1 po q 6hr PRN Pain 2011 HYDROCODONE-ACETAMINOPHEN 60055703551 No Longer Active Patri joan Perez RN Active BACTRIM DS 800-160 MG TAB 1 tab by mouth twice daily 2 TRIMETHOPRIM-SULFAMETHOXAZOLE 06144300181 No Longer Active Kalpesh Dong MD Active LORTAB 5 5-500 MG TABS 1/2 to 1 tablet by mouth go ry 4 hours as needed for pain HYDROCODONE-ACETAMINOPHEN 32018574153 No Longer Active Kalpesh Dong MD Active GENERESS FE 0.8-25 MG-MCG CHEW Take one by mouth daily NORETHIN-ETH ESTRADIOL-FE 67452827597 No Longer Active Kalpesh Dong MD Active HYDROCODONE-ACETAMINOPHEN 7.5-500 MG TABS 1-2 every 4 hours as needed HYDROCODONE-ACETAMINOPHEN 07350593695 No Longer Activ e Kalpesh Dong MD Active FERROUS SULFATE 325 (65 FE) MG TABS 1 tablet by mouth twice yung y FERROUS SULFATE 33486512790 No Longer Active Kalpesh Dong MD Active IBUPROFEN 600 MG TAB 1 po q6-8hr PRN IBUPROFEN 60661630066 No Longer Active Kalpesh Dong MD Active SPIRONOLACTONE 25 MG TAB 1 tablet by mouth daily 01/22 SPIRONOLACTONE 14161204942 No Longer Active Kalpesh Dong MD Acti ve HYDROCODONE-ACETAMINOPHEN 7.5-325 MG TABS 1 po QID PRN Pain 2011 HYDROCODONE-ACETAMINOPHEN 49131004711 No Longer Active Kalpesh Dong MD Active CLINDAMYCIN HCL 300 MG CAPS 1 po q6hr x 7 days CLINDAMYCIN HCL 31413936281 No Longer Active Edilberto Marino DO Active PREDNISONE 20 MG TAB 2 tabs daily for 4 days, 1 t ab daily for 4 days, 1/2 tab daily for 4 days PREDNISONE 93451899599 No Longer Active Edilberto Marino DO Active PERCOCET 5-325 MG TABS 1 tablet by mouth every 6 hours as ne eded for pain OXYCODONE-ACETAMINOPHEN 06760986982 No Longer Active Abdirahman Rios MD Active VITAMINS TABS Take one by mouth daily MV & MIN W/FE-FA TABS 38500116298 No Longer Active Abdirahman Rios MD Active LUIS 3-0.02 MG TABS 1 tablet by mouth daily as directed DROSPIRENONE-ETHINYL ESTRADIOL 81234682054 No Longer Active Abdirahman Rios MD Active LORATADINE 10 MG TABS 1 tablet by mouth daily L ORATADINE 69006913361 No Longer Active Kalpesh Dong MD Active HYDROCODONE-ACETAMINOPHEN 5-325 MG TABS 1 po q 6hr PRN Pain 2010 HYDROCODONE-ACETAMINOPHEN 74793800137 No Longer Active Edilberto Marino DO Active BACTRIM DS 800-160 MG TAB 1 tab by mouth twice daily 2 TRIMETHOPRIM-SULFAMETHOXAZOLE 85669154962 No Longer Active Abdirahman Rios MD Active 28-0.8 MG TABS Take one by mouth daily 09/20 VIT-FE FUMARATE-FA 33588000255 No Longer Active Abdirahman Rios MD Active CIPRO 500 MG TAB 1 tablet by mouth twice daily CIPROFLOXACIN HCL 70849209990 No Longer Active Abdirahman Rios MD Active BENADRYL 25 MG CAP 1 po q8hr PRN Congestion DIPHENHYDRAMINE HCL 07975608536 No Longer Active Abdirahman Rios MD Active ZOLOFT 50 MG TAB 1 po qd SERTRALINE HCL 456211 54754 No Longer Active Abdirahman Rios MD Active AMOXICILLIN 875 MG TABS 1 tab by mouth twice daily 201 08/09/13 AMOXICILLIN 59853813358 No Longer Active Abdirahman Rios MD Activ e AMOXICILLIN 875 MG TABS 1 tab by mouth twice daily 201 07/19/27 AMOXICILLIN 87737894107 No Longer Active Abdirahman Rios MD Activ e BACTRIM DS 800-160 MG TAB 2 tab by mouth twice daily 2 TRIMETHOPRIM-SULFAMETHOXAZOLE 62565355613 No Longer Active Abdirahman Rios MD Active KEFLEX 500 MG CAP 1 po tid x 10 days CEPHALEXIN 45998380271 No Longer Active Abdirahman Rios MD Active AMOXICILLIN 875 MG TABS 1 tab by mouth twice daily 201 07/18/07 AMOXICILLIN 69969468055 No Longer Active Abdirahman Rios MD Activ e BACTRIM DS 800-160 MG TAB 2 tab by mouth twice daily 2 BACTRIM DS 800-160 MG TAB 860066 TRIMETHOPRIM-SULFAMETHOXAZOLE Inactive ZOLOFT 50 MG TAB 1 po qd ZOLOFT 50 MG TAB 3129 41 SERTRALINE HCL Inactive BENADRYL 25 MG CAP 1 po q8hr PRN Congestion BENADRYL 25 MG CAP 8946771 DIPHENHYDRAMINE HCL Inactive 28-0.8 MG TABS Take one by mouth daily 09/20 28-0.8 MG TABS VIT-FE FUMARATE-FA Inactive HYDROCODONE-ACETAMINOPHEN 5-325 MG TABS 1 po q 6hr PRN Pain 2010 HYDROCODONE-ACETAMINOPHEN 5-325 MG TABS 374801 HYDROCODONE-ACETAMINOPHEN Inactive LORATADINE 10 MG TABS 1 tablet by mouth daily LORATADINE 10 MG TABS 353677 LORATADINE Inactive LUIS 3-0.02 MG TABS 1 tablet by mouth daily as directed LUIS 3-0.02 MG TABS 210087 DROSPIRENONE-ETHINYL ESTRADIOL Inactive VITAMINS TABS Take one by mouth daily VITAMINS TABS MV & MIN W/FE-FA TABS Inactive PERCOCET 5-325 MG TABS 1 tablet by mouth every 6 hours as ne eded for pain PERCOCET 5-325 MG TABS 7803757 OXYCODONE-ACETAMIN OPHEN Inactive PREDNISONE 20 MG TAB 2 tabs daily for 4 days, 1 t ab daily for 4 days, 1/2 tab daily for 4 days PREDNISONE 20 MG TAB 267431 PREDNISON E Inactive CLINDAMYCIN HCL 300 MG CAPS 1 po q6hr x 7 days CLINDAMYCIN HCL 300 MG CAPS 821463 CLINDAMYCIN HCL Inactive HYDROCODONE-ACETAMINOPHEN 7.5-325 MG TABS 1 po QID PRN Pain 2011 HYDROCODONE-ACETAMINOPHEN 7.5-325 MG TABS 670359 HYDROCODONE-ACETAMINOPHEN Inactive SPIRONOLACTONE 25 MG TAB 1 tablet by mouth daily 01/22 SPIRONOLACTONE 25 MG TAB 580844 SPIRONOLACTONE Inactive IBUPROFEN 600 MG TAB 1 po q6-8hr PRN IBUPROFEN 600 MG TAB 570901 IBUPROFEN Inactive FERROUS SULFATE 325 (65 FE) MG TABS 1 tablet by mouth twice yung y FERROUS SULFATE 325 (65 FE) MG TABS 462535 FERROUS SULF ATE Inactive HYDROCODONE-ACETAMINOPHEN 7.5-500 MG TABS 1-2 every 4 hours as needed HYDROCODONE-ACETAMINOPHEN 7.5-500 MG TABS HYDROCODONE-ACETAMINOPHEN Inactive GENERESS FE 0.8-25 MG-MCG CHEW Take one by mouth daily GENERESS FE 0.8-25 MG-MCG CHEW 7183535 NORETHIN-ETH ESTRADIOL-FE Inactive LORTAB 5 5-500 MG TABS 1/2 to 1 tablet by mouth go ry 4 hours as needed for pain LORTAB 5 5-500 MG TABS HYDROCODONE-A CETAMINOPHEN Inactive BACTRIM DS 800-160 MG TAB 1 tab by mouth twice daily 2 BACTRIM DS 800-160 MG TAB 337287 TRIMETHOPRIM-SULFAMETHOXAZOLE Inac tive HYDROCODONE-ACETAMINOPHEN 5-325 MG TABS 1 po q 6hr PRN Pain 2011 HYDROCODONE-ACETAMINOPHEN 5-325 MG TABS 523793 HYDROCODONE-ACETAMINOPHEN Inactive DOXYCYCLINE HYCLATE 100 MG CAPS Take one (1) tablet by mouth twice a day DOXYCYCLINE HYCLATE 100 MG CAPS 9876172 DOXYCYCLINE HYCLATE Inactive PENICILLIN V POTASSIUM 500 MG TAB 1 four times a day 2 PENICILLIN V POTASSIUM 500 MG TAB 117963 PENICILLIN V POTASSIUM [place] ctive PRISTIQ 50 MG [id number] 1 po qd PRISTIQ 50 MG [id number] DESVENLAFAXINE SUCCINATE Inactive TYLENOL/CODEINE #3 300-30 MG TAB 1-2 po q6hr PRN Pain TYLENOL/CODEINE #3 300-30 MG TAB 437403 ACETAMINOPHEN-CODEINE Inact krishna CEPHALEXIN 500 MG TABS Take one by mouth four times daily, morning, noon, early evening and bedtime. CEPHALEXIN 500 MG TABS 144649 CEPHALEXIN Inactive LORTAB 5 5-500 MG TABS 1/2 to 1 tablet by mouth go ry 6 hours as needed for pain LORTAB 5 5-500 MG TABS HYDROCODONE-A CETAMINOPHEN Inactive AMITRIPTYLINE HCL 25 MG TAB 1 tab by mouth daily 60 minutes before bedtime AMITRIPTYLINE HCL 25 MG TAB 608458 AMITRIPTYLINE HCL Inactive AMOXICILLIN 500 MG TABS 2 tabs PO bid x 10 d 7 AMOXICILLIN 500 MG TABS 811203 AMOXICILLIN Inactive IMPLANON 68 MG IMPL IMPLANTED IN LEFT ARM IMPLANON 68 MG IMPL ETONOGESTREL Inactive HYDROCODONE-ACETAMINOPHEN 5-325 MG TABS 1 PO tid PRN pain 5 HYDROCODONE-ACETAMINOPHEN 5-325 MG TABS 008823 HYDROCODONE-ACETAMIN OPHEN Inactive BACTRIM DS 800-160 MG TAB 1 tab by mouth twice daily 2 BACTRIM DS 800-160 MG TAB 816531 TRIMETHOPRIM-SULFAMETHOXAZOLE Inac tive CEPHALEXIN 500 MG CAPS 1 PO bid x 7 days CEPHALEXIN 500 MG CAPS 851375 CEPHALEXIN Inactive HYDROCODONE-ACETAMINOPHEN 5-325 MG TABS 1 tab by mouth every 6 hours as needed HYDROCODONE-ACETAMINOPHEN 5-325 MG TABS 275928 HYDROCODONE-ACETAMINOPHEN Inactive PROMETHAZINE-CODEINE 6.25-10 MG/5ML SYRP 1 tsp every 6 hrs prn c ough PROMETHAZINE-CODEINE 6.25-10 MG/5ML SYRP 808736 PROMETH AZINE-CODEINE Inactive IBUPROFEN 800 MG TAB 1 pill three times daily as needed for pain IBUPROFEN 800 MG TAB 934747 IBUPROFEN Inactive KEFLEX 500 MG CAP 1 tab po tid KEFLEX 500 MG CAP 190311 CEPHALEXIN Inactive HYDROCODONE-ACETAMINOPHEN 7.5-325 MG TABS 1 four times a day as needed for pain HYDROCODONE-ACETAMINOPHEN 7.5-325 MG TABS 679478 HYDROCODONE-ACETAMINOPHEN Inactive BACTRIM DS 800-160 MG TABS by mouth twice a day 11/05 BACTRIM DS 800-160 MG TABS 103526 SULFAMETHOXAZOLE-TRIMETHOPRIM Inactive IBUPROFEN 800 MG TABS 1 tid prn IBUPROFEN 800 MG TABS 265293 IBUPROFEN Inactive ENDOCET 10-325 MG TABS 1 q 6 hr prn ENDOC ET 10-325 MG TABS 4361823 OXYCODONE-ACETAMINOPHEN Inactive HYDROCODONE-ACETAMINOPHEN 7.5-325 MG TABS 1 by mouth e very 6 hours as needed for pain HYDROCODONE-ACETAMINOPHEN 7.5-325 MG TABS 553859 HYDROCODONE-ACETAMINOPHEN Inactive PERCOCET 7.5-325 MG TABS 1 PO q 8 hrs PRN pain PERCOCET 7.5-325 MG TABS 3244206 OXYCODONE-ACETAMINOPHEN Inactive LIDODERM 5 % PTCH One patch to painful area ME N. On for 12 hrs, off for 12 hrs. LIDODERM 5 % [facility] 5899469 LIDOCAINE Inactiv e PERCOCET 7.5-325 MG TABS 1 PO tid PRN pain PERCOCET 7.5- 325 MG TABS 6142565 OXYCODONE-ACETAMINOPHEN Inactive MOBIC 15 MG TABS 1 tab daily MOBIC 15 MG TABS 15 2695 MELOXICAM Inactive CYCLOBENZAPRINE HCL 10 MG TABS 1/2 - 1 tab PO tid PRN back p ain, muscle spasm CYCLOBENZAPRINE HCL 10 MG TABS 077559 CYCLOBENZA JOSEPH HCL Inactive LORATADINE 10 MG TABS 1 tablet by mouth daily LORATADINE 10 MG TABS 938574 LORATADINE Inactive HYDROCODONE-ACETAMINOPHEN 10-325 MG TABS 1 by mouth ev chaka 8 hours as needed for pain HYDROCODONE-ACETAMINOPHEN 10-325 MG TABS 547393 HYDROCODONE-ACETAMINOPHEN Inactive LC-5 LIDOCAINE 5 % CREA apply 1 time daily to affected area 2013 LC-5 LIDOCAINE 5 % CREA 6910714 LIDOCAINE (ANORECTAL) In active PERCOCET 5-325 MG TAB 1 every 6 hours as needed PERCOCET 5-325 MG TAB 4363464 OXYCODONE-ACETAMINOPHEN Inactive KEFLEX 500 MG CAP 1 po qid KEFLEX 500 MG CAP 30 9114 CEPHALEXIN Inactive PROAIR HFA 108 (90 BASE) MCG/ACT AERS 2 puff q 4-6 hrs PRN 01/24 PROAIR HFA 108 (90 BASE) MCG/ACT AERS ALBUTEROL SULFATE Inactive PERCOCET 10-325 MG ORAL TABS 1 every 4 hours as needed PERCOCET 10-325 MG ORAL TABS 7937494 OXYCODONE-ACETAMINOPHEN Inactiv e EMLA 2.5-2.5 % EXT CREA apply to skin lesion q 6 hours, prn 2014 EMLA 2.5-2.5 % EXT CREA 650044 LIDOCAINE-PRILOCAINE Siri ctive PERCOCET 10-325 MG TABS 1 tab by mouth every 6 hours , use sparingly for severe pain PERCOCET 10-325 MG TABS 1174025 OXYCODONE-ACETAMINOPHEN Inactive GLUCOPHAGE 500 MG ORAL TABS one by mouth 3 times a day GLUCOPHAGE 500 MG ORAL TABS 295663 METFORMIN HCL Inactive HYDROCODONE-ACETAMINOPHEN 5-325 MG TABS 1 po q6hr PRN pain 06/30 HYDROCODONE-ACETAMINOPHEN 5-325 MG TABS 189515 HYDROCOD ONE-ACETAMINOPHEN Inactive PERCOCET 5-325 MG TAB 1 tab po q 6 -8 hours, prn for severe pain PERCOCET 5-325 MG TAB [id number] OXYCODONE-ACETAMINOPHEN In active PERCOCET 5-325 MG ORAL TABS 1 every 6 hours as needed PERCOCET 5-325 MG ORAL TABS [id number] OXYCODONE-ACETAMINOPHEN Inactive DICLOFENAC SODIUM 50 MG TBEC 1 tablet by mouth four times da tom PRN Pain DICLOFENAC SODIUM 50 MG TBEC [id number] DICLOFENAC S ODIUM Inactive AUGMENTIN 500-125 MG ORAL TABS 1 by mouth twice a day AUGMENTIN 500-125 MG ORAL TABS [id number] AMOXICILLIN-POT CLAVULANATE I nactive HYDROCODONE-ACETAMINOPHEN 5-325 MG TABS 1 po q6hr PRN Pain 03/09 HYDROCODONE-ACETAMINOPHEN 5-325 MG TABS 137336 HYDROCOD ONE-ACETAMINOPHEN Inactive CYCLOBENZAPRINE HCL 10 MG TABS 1 tablet by mouth three times daily as needed for muscle spasm/pain CYCLOBENZAPRINE HCL 10 MG TABS [id number] CYCLOBENZAPRINE HCL Inactive SPRINTEC 28 0.25-35 MG-MCG TABS 1 pill by mouth daily for bi rth control SPRINTEC 28 0.25-35 MG-MCG TABS 400443 NORGESTIMATE-ETH ESTRADIOL Inactive PERCOCET 5-325 MG TAB 1 tab po q 6 hours, prn severe pain PERCOCET 5-325 MG TAB [id number] OXYCODONE-ACETAMINOPHEN Inactive IBUPROFEN 600 MG ORAL TABS 1 by mouth twice a day 2014 IBUPROFEN 600 MG ORAL TABS [id number] IBUPROFEN Inactive CYMBALTA 30 MG CPEP 1 cap by mouth daily CYMBALTA 30 MG CPEP [id number] DULOXETINE HCL Inactive HYDROCODONE-ACETAMINOPHEN 5-325 MG TABS 1 po q6hr PRN Pain 04/09 HYDROCODONE-ACETAMINOPHEN 5-325 MG TABS [id number] HYDROCOD ONE-ACETAMINOPHEN Inactive TRAZODONE HCL 100 MG TAB 0.5 to 1 po qHS PRN Insomnia TRAZODONE HCL 100 MG TAB [id number] TRAZODONE HCL Inactive ALPRAZOLAM 0.5 MG TABS 1 po BID PRN Anxiety ALPRAZOLAM 0.5 MG TABS 978661 ALPRAZOLAM Inactive [id number] 50-325-40 MG ORAL CAPS 1-2 po TID ME N Headache [id number] 50-325-40 MG ORAL CAPS 2 38422 [id number] Inactive HYDROCODONE-ACETAMINOPHEN 5-325 MG TABS 1 po TID PRN Pain 9 HYDROCODONE-ACETAMINOPHEN 5-325 MG TABS [id number] HYDROCODONE-ACETAMIN OPHEN Inactive PERCOCET 10-325 MG TABS 1 tablet every 8 hours as needed for antonia n PERCOCET 10-325 MG TABS [id number] OXYCODONE-ACETAMINOPHEN Inactive ONDANSETRON 4 MG TBDP 1 q4h PRN nausea ON DANSETRON 4 MG TBDP [id number] ONDANSETRON Inactive VIIBRYD 10 & 20 & 40 MG KIT 1 po qd as directed 07/24 VIIBRYD 10 & 20 & 40 MG KIT VILAZODONE HCL Inactive DICLOFENAC SODIUM 50 MG TBEC 1 tablet by mouth four times da tom PRN Pain DICLOFENAC SODIUM 50 MG TBEC 525484 DICLOFENAC S ODIUM Inactive PERCOCET 10-325 MG ORAL TABS one every 6 hours prn pain PERCOCET 10-325 MG ORAL TABS [id number] OXYCODONE-ACETAMINOPHEN Inactiv e PERCOCET 10-325 MG ORAL TABS take 1 tab by mouth q 4hours as needed for pain PERCOCET 10-325 MG ORAL TABS [id number] OXYCODONE-ACETAMINOPHEN Inactive FLONASE ALLERGY RELIEF 50 MCG/ACT NASAL SUSP One spray in each nostril twice a day. FLONASE ALLERGY RELIEF 50 MCG/ACT NASAL S [facility] [id number] FLUTICASONE PROPIONATE Inactive AUGMENTIN 875-125 MG TAB 1 tab by mouth twice daily with food 20 23/05/16 AUGMENTIN 875-125 MG TAB [id number] AMOXICILLIN-POT [place] Inactive HYDROCODONE-ACETAMINOPHEN 5-325 MG TABS 1 tab by mouth every 6 hours as needed for pain HYDROCODONE-ACETAMINOPHEN 5-325 MG TABS 8 84444 HYDROCODONE-ACETAMINOPHEN Inactive AMOXICILLIN 875 MG TABS 1 tab by mouth twice daily 201 07/18/07 AMOXICILLIN 875 MG TABS 778387 AMOXICILLIN Inactive KEFLEX 500 MG CAP 1 po tid x 10 days KEFLEX 500 MG CAP 723399 CEPHALEXIN Inactive AMOXICILLIN 875 MG TABS 1 tab by mouth twice daily 201 07/19/27 AMOXICILLIN 875 MG TABS 443084 AMOXICILLIN Inactive AMOXICILLIN 875 MG TABS 1 tab by mouth twice daily 201 08/09/13 AMOXICILLIN 875 MG TABS 188780 AMOXICILLIN Inactive CIPRO 500 MG TAB 1 tablet by mouth twice daily CIPRO 500 MG TAB 871844 CIPROFLOXACIN HCL Inactive BACTRIM DS 800-160 MG TAB 1 tab by mouth twice daily 2 BACTRIM DS 800-160 MG TAB 357658 TRIMETHOPRIM-SULFAMETHOXAZOLE Inac tive LEVAQUIN 500 MG TABS 1 PO q day x 7 days LEVAQUIN 500 MG TABS 929884 LEVOFLOXACIN Inactive CLINDAMYCIN HCL 300 MG CAPS 1 po QID x 7 days CLINDAMYCIN HCL 300 MG CAPS 013305 CLINDAMYCIN HCL Inactive AUGMENTIN 875-125 MG TAB 1 tab by mouth twice daily with food 20 22/05/07 AUGMENTIN 875-125 MG TAB 255154 AMOXICILLIN-POT [place] Inactive DIFLUCAN 150 MG TAB 1 qODay x 2 doses DIFLUCAN 150 MG TAB 251181 FLUCONAZOLE Inactive PREDNISONE 20 MG TAB 2 tabs daily for 3 days, 1 t ab daily for 3 days, 1/2 tab daily for 2 days PREDNISONE 20 MG TAB 304887 PREDNISON E Inactive AUGMENTIN 875-125 MG TAB 1 tab by mouth twice daily with food 20 21/10/13 AUGMENTIN 875-125 MG TAB 723905 AMOXICILLIN-POT [place] Inactive HYDROCODONE-ACETAMINOPHEN 5-325 MG TABS 1 tab by mouth every 6 hours as needed PRN Pain HYDROCODONE-ACETAMINOPHEN 5-325 MG TABS 8 80590 HYDROCODONE-ACETAMINOPHEN Inactive PROMETHAZINE HCL 25 MG TABS 1 four times a day as needed for nausea/vomiting PROMETHAZINE HCL 25 MG TABS 158419 PROMETHAZINE HCL Inactive Advance Directives Directive Description Start Date PERMISSION TO SHARE Immunizations Vaccine Administration Date Value Standard Alf cription Seasonal influenza vaccine, injectable, containing preservative, for > 3 years old (Afluria, FluLaval, Fluzone, Fluvirin, Fluarix, Agriflu(>= 18 yo)) Fluzone (>3 yrs.) [[id number]] Influenza, seasonal, inject able Seasonal influenza vaccine, injectable, preservative free, for > 3 years old (Afluria, FluLaval, Fluzone, Fluvirin, Fluarix, Agriflu(>= 18 yo)) Fluzone preservative free (>3 yrs.) [[id number]] Influenza, seasonal, injectable, preservative free Seasonal influenza vaccine, injectable, containing preservative, for > 3 years old (Afluria, FluLaval, Fluzone, Fluvirin, Fluarix, Agriflu(>= 18 yo)) Fluzone (>3 yrs.) [[id number]] Influenza, seasonal, inject able Seasonal influenza vaccine, injectable, containing preservative, for > 3 years old (Afluria, FluLaval, Fluzone, Fluvirin, Fluarix, Agriflu(>= 18 yo)) Fluzone (>3 yrs.) [[id number]] Influenza, seasonal, inject able dT (Diphtheria and [...] Panel - Chemistry sodium, serum 142 mmol/L 244-433 1275/05/12 potassium, serum 4.8 mmol/L 3.5-5.2 chloride, serum [...] 341 mg/dL 30-200 cholesterol, serum 181 mg/dL [phone]/05/12 cholesterol, serum 165 mg/dL 864-497 1391/05/12 triglyceride, serum, fasting 524 mg/dL 30-200 HDL [...] negative Encounters Code Encounter Date Provider Facility CPT-68784 Level 3 Est. Patient 21:00:18 PROCESS COACH Rajni danielson [facility] CPT-78246 Level 3 Est. Patient 14:15:00 PROCESS COACH Kalpesh goins MD [facility]-52546 Level 2 Est. Patient 19:57:52 PROCESS COACH Rajni Oconnor [facility] CPT-65773 Level 3 Est. Patient 16:58:40 PROCESS COACH Bj funes MD [facility]-71485 Level 3 Est. Patient 08:51:33 CDT Kalpesh goins MD [facility] CPT-01032 Level 4 Est. Patient 14:14:53 CDT Abdirahman Rios MD [facility] CPT-49728 Level 3 Est. Patient 15:47:40 CDT Kalpesh goins MD [facility] CPT-54015 Level 3 Est. Patient 10:57:26 CDT Abdirahman Rios MD [facility] CPT-84114 Level 3 Est. Patient 14:29:53 CDT Abhinav Galvan MD [facility] CPT-34568 Level 2 Est. Patient 16:33:01 CDT Kalpesh goins MD [facility]-81007 Level 4 Est. Patient 16:44:56 CDT Abdirahman Rios MD [facility] CPT-23031 Level 2 Est. Patient 07:49:32 CDT Kalpesh goins MD [facility] CPT-47728 Level 3 New Patient 15:47:11 PROCESS COACH Bj huber MD [facility] CPT-60639 Level 4 Est. Patient 14:37:38 PROCESS COACH Abdirahman Rios MD [facility] CPT-34126 Level 2 Est. Patient 13:32:17 PROCESS COACH Kalpesh goins MD [facility] CPT-96513 Level 3 Est. Patient 17:32:57 PROCESS COACH Edilberto tiwari [facility] CPT-50560 Level 3 Est. Patient 17:22:33 PROCESS COACH Edilberto tiwari [facility] CPT-72030 Level 2 Est. Patient 16:57:09 PROCESS COACH Kalpesh goins MD [facility]-84424 Level 3 Est. Patient 14:03:08 PROCESS COACH Abdirahman Rios MD [facility] CPT-66799 Level 3 Est. Patient 18:12:34 CDT Shola Wright [facility] CPT-15975 Level 3 Est. Patient 19:34:46 CDT Shola Wright [facility] CPT-12109 Level 3 Est. Patient 14:19:37 CDT Abdirahman Rios MD [facility] CPT-82739 Level 3 Est. Patient 14:11:58 CDT Kalpesh goins MD [facility] CPT-63900 Level 3 Est. Patient 16:50:[address] [facility] CPT-45886 Level 3 Est. Patient 17:11:32 PROCESS COACH Brandie bates MD PhD [facility] CPT-85345 Level 3 Est. Patient 16:31:47 PROCESS COACH Shola Wright [facility] CPT-41078 Level 3 Est. Patient 17:51:10 PROCESS COACH Abhinav Galvan MD [facility] CPT-17009 Level 4 Est. Patient 12:54:56 PROCESS COACH Kalpesh goins MD [facility] CPT-52801 Level 4 Est. Patient 12:53:56 PROCESS COACH Kalpehs goins MD [facility]-89214 Level 3 Est. Patient 17:56:58 CDT Shola Wright [facility] CPT-88966 Level 3 Est. Patient 14:26:20 CDT Janak butcher [facility] CPT-02195 Level 3 Est. Patient 09:38:41 CDT Shola Thao [facility] CPT-51879 Level 3 Est. Patient 14:45:26 CDT Edilberto tiwari [facility]-58009 Level 3 Est. Patient 10:51:33 CDT Hira muniz [facility] CPT-38991 Level 3 Est. Patient 11:57:55 PROCESS COACH Shola Thao Adriana [facility] CPT-03149 Level 3 Est. Patient 09:53:33 PROCESS COACH Edilberto tiwari [facility] CPT-28854 Level 3 Est. Patient 14:42:54 PROCESS COACH Abhinav Galvan MD [facility] CPT-59125 Level 3 Est. Patient 15:10:02 CDT Janak butcher [facility] CPT-15550 Level 3 Est. Patient 15:20:20 CDT Theo dennis MD [facility] CPT-69256 Level 2 Est. Patient 14:08:57 CDT Kalpesh goins MD [facility]-25346 Level 3 Est. Patient 13:56:19 CDT Abdirahman Rios MD [facility] CPT-09150 Level 3 Est. Patient 13:59:37 CDT Abdirahman Rios MD [facility] CPT-14676 Level 2 Est. Patient 14:44:59 CDT Kalpesh goins MD [facility] CPT-04899 Level 3 Est. Patient 06:06:23 CDT Edilberto tiwari DO [facility] CPT-79285 Level 3 Est. Patient 15:23:54 CDT Abdirahman Rios MD [facility] CPT-10838 Level 3 Est. Patient 15:43:49 CDT Abdirahman Rios MD [facility] CPT-72080 Level 3 Est. Patient 12:46:47 PROCESS COACH Abdirahman Rios MD [facility] CPT-90507 Level 3 Est. Patient 08:13:35 PROCESS COACH Abdirahman Rios MD [facility] CPT-76833 Level 2 Est. Patient 09:36:42 PROCESS COACH Abdirahman Rios MD [facility] CPT-69373 Level 3 Est. Patient 10:56:43 CDT Abdirahman Rios MD [facility] CPT-84199 Level 3 Est. Patient 18:24:52 CDT Abdirahman Rios MD [facility] CPT-55966 Level 3 Est. Patient 13:27:22 CDT Abdirahman Rios MD [facility] Procedures Code Procedure Name Date Entry Date Standard Desc ription CPT-81519 Postop F/U Visit 15:18:16 PROCESS COACH CPT-88126 Postop F/U Visit 15:03:49 PROCESS COACH CPT-81436 Postop F/U Visit 14:45:23 PROCESS COACH CPT-71714 Postop F/U Visit 14:11:03 PROCESS COACH CPT-14007 Postop F/U Visit 18:21:21 PROCESS COACH CPT-64604 Postop F/U Visit 15:57:12 PROCESS COACH CPT-90417 Bladder Instillation 16:58:41 PROCESS COACH 6 CPT-77612 Fluzone Quadrivalent Intramuscular Suspe nsion 0.5 ML 15:20:56 PROCESS COACH CPT-18512 Immunization Single Admin 15:20:56 PROCESS COACH 2014 CPT-38525 Excis pilonidal cyst simple 08:51:34 CDT 20 22/04/20 CPT-99515 Venipuncture Draw Fee 14:27:29 CDT CPT-68931 Postop F/U Visit 15:27:43 CDT CPT-91926 Postop F/U Visit 14:40:59 CDT CPT-24176 Postop F/U Visit 15:02:46 CDT CPT-15498 Postop F/U Visit 11:29:00 PROCESS COACH CPT-J0696 Rocephin 1000 mg (Ceftriaxone) 17:22:33 PROCESS COACH CPT-24261 Postop F/U Visit 18:41:07 PROCESS COACH CPT-52689 Postop F/U Visit 08:19:08 PROCESS COACH CPT-41591 Immunization Single Admin 16:41:53 CDT 2013 CPT-69504 Fluzone Quadrivalent Intramuscular Suspe nsion 0.5 ML 16:41:53 CDT CPT-OV Office Visit 16:39:18 CDT CPT-OV Office Visit 16:16:36 CDT CPT-OV Office Visit 15:34:48 CDT CPT-73446 Postop F/U Visit 14:50:12 CDT CPT-93051 Postop F/U Visit 14:41:10 CDT CPT-84444 Venipuncture Draw Fee 11:38:04 PROCESS COACH CPT-37382 Postop F/U Visit 19:02:59 PROCESS COACH CPT-22433 Postop F/U Visit 12:04:54 PROCESS COACH CPT-87821 Administration single or combination vac cine inc oral 15:56:43 CDT CPT-35431 Influenza split virus > age 3 15:56:43 CDT CPT-76753 Hand comp min 3V 14:25:19 CDT CPT-59128 Postop F/U Visit 21:40:51 CDT CPT-63960 Postop F/U Visit 10:58:43 CDT CPT-17077 Administration single or combination vac cine inc oral 12:33:54 PROCESS COACH CPT-84000 Influenza Preservative Free split virus >age 3 12:33:54 PROCESS COACH CPT-20875 Administration single or combination vac cine inc oral 09:30:51 CDT CPT-00951 Influenza split virus > age 3 09:30:51 CDT CPT-95751 Postop F/U Visit 15:14:53 CDT CPT-35361 Postop F/U Visit 13:50:14 CDT CPT-64034 Postop F/U Visit 13:34:52 CDT CPT-OV Office Visit 16:55:03 CDT CPT-53565 [place] of cervix w bx ECC 13:32:50 CDT 10/19 CPT-J1885 Toradol 60 mg (Ketorolac) 15:31:59 CDT 2011 CPT-J1885 Toradol 60 mg (Ketorolac) 15:23:54 CDT 2011 CPT-00777 Visit 11:34:37 PROCESS COACH CPT-99394 Visit 10:52:39 PROCESS COACH CPT-12725 Visit 10:12:02 PROCESS COACH CPT-49200 Visit 11:22:43 PROCESS COACH CPT-18249 Visit 11:24:12 PROCESS COACH CPT-83845 Visit 10:47:05 PROCESS COACH CPT-OV Office Visit 10:26:16 PROCESS COACH CPT-OV Office Visit 15:34:31 PROCESS COACH CPT-13384 Visit 10:42:08 PROCESS COACH CPT-77986 Visit 10:52:45 PROCESS COACH CPT-000 Give Appropriate Flu Vaccine 16:56:41 CDT 2 CPT-08250 Administration single or combination vac cine inc oral 10:33:21 CDT CPT-30109 Influenza split virus > age 3 10:33:21 CDT CPT-06374 Visit 13:23:09 CDT CPT-07438 Visit 18:24:52 CDT CPT-07415 Sono OB comp > 14 weeks 12:07:49 CDT 04/07
--- OUTSIDE RECORDS SUMMARY | 2020-01-18 16:07 | XMS REPORT | Clinical Summary ---
Author Author Admin, Jeri Rashid Organization [facility] Address Unknown Phone Unavailable Allergies, [...] unspecified SINUSITIS, ACUTE 461.9 Active Rajni Alcazar [employer] Acute sinusitis, unspecified BACK PAIN 724.5 Resolved [...] apply q 6 hours, prn 08/03 LIDOCAINE [id number] No Longer Active Kalpesh Dong MD Active PERCOCET 10-325 MG TABS 1 tablet every 8 hours as needed for antonia n OXYCODONE-ACETAMINOPHEN 39179665945 No Longer Active Kalpesh Dong MD Active HYDROCODONE-ACETAMINOPHEN 5-325 MG TABS 1 tab by mouth every 6 hours as needed for pain HYDROCODONE-ACETAMINOPHEN 72529060096 No Longer Active Kalpesh Dong MD Active PERCOCET 10-325 MG ORAL TABS 1 every 4 hous as needed OXYCODONE-ACETAMINOPHEN 67562640867 Active Hira Moser APRN Active GLYDO 2 % EXT GEL apply to painful areas as needed LIDOCAINE HCL 69267196890 Active Kalpesh Dong MD Active LC-4 LIDOCAINE 4 % EXT CREA apply to painful area every 12 h ours or as needed LIDOCAINE 88997544036 Active Kalpesh Dong MD Active AUGMENTIN 875-125 MG TAB 1 tab by mouth twice daily with food 20 23/05/16 AMOXICILLIN-POT CLAVULANATE 67428729415 No Longer Active Lizeth hi [employer] 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 FLUTICASONE PROPIONATE 83792608710 No Longer Ac tive Rajni [employer] Active PERCOCET 10-325 MG ORAL TABS take 1 tab by mouth q 4hours as needed for pain OXYCODONE-ACETAMINOPHEN 76594563815 No Longer Active Rajni [employer] Active PERCOCET 10-325 MG ORAL TABS one every 6 hours prn pain OXYCODONE-ACETAMINOPHEN 70099968506 No Longer Active Rajni [employer] Active IBUPROFEN 800 MG TABS 1 tab po tid, with food I BUPROFEN 91230697477 Active Hira Moser APRN Active DICLOFENAC SODIUM 50 MG TBEC 1 tablet by mouth four times da tom PRN Pain DICLOFENAC SODIUM 99478563621 No Longer Active Rajni [employer] Active VIIBRYD 10 & 20 & 40 MG KIT 1 po qd as directed 07/24 VILAZODONE HCL 41672116730 No Longer Active Rajni [place]um [employer] Active ONDANSETRON 4 MG TBDP 1 q4h PRN nausea ONDANSET KELBY 31261798648 No Longer Active Rajni Y[place]anaum [employer] Active PERCOCET 10-325 MG TABS 1 tablet every 8 hours as needed for antonia n OXYCODONE-ACETAMINOPHEN 83053897205 No Longer Active Rajni cox [employer]IVER Active HYDROCODONE-ACETAMINOPHEN 5-325 MG TABS 1 po TID PRN Pain 9 HYDROCODONE-ACETAMINOPHEN 11678447633 No Longer Active Abdirahman Rios MD Active [id number] 50-325-40 MG ORAL CAPS 1-2 po TID VA N Headache [id number] 71083178808 No Longer Act krishna Kalpesh Dong MD Active ALPRAZOLAM 0.5 MG TABS 1 po BID PRN Anxiety ALP RAZOLAM 01113985174 No Longer Active Kalpesh Dong MD Active TRAZODONE HCL 100 MG TAB 0.5 to 1 po qHS PRN Insomnia TRAZODONE HCL 06277807244 No Longer Active Kalpesh Dong MD Activ e HYDROCODONE-ACETAMINOPHEN 5-325 MG TABS 1 po q6hr PRN Pain 04/09 HYDROCODONE-ACETAMINOPHEN 72670183984 No Longer Active Kalpesh Dong MD Active CYMBALTA 30 MG CPEP 1 cap by mouth daily DULOXE CLEO HCL 85830331816 No Longer Active Abdirahman Rios MD Active IBUPROFEN 600 MG ORAL TABS 1 by mouth twice a day 2014 IBUPROFEN 08962684468 No Longer Active Abdirahman Rios MD Activ e PERCOCET 5-325 MG TAB 1 tab po q 6 hours, prn severe pain 1 OXYCODONE-ACETAMINOPHEN 51543185444 No Longer Active Abdirahman Rios MD Active SPRINTEC 28 0.25-35 MG-MCG TABS 1 pill by mouth daily for bi rth control NORGESTIMATE-ETH ESTRADIOL 41408661671 No Longer Acti ve Matthewllina Frazell [employer] Active CYCLOBENZAPRINE HCL 10 MG TABS 1 tablet by mouth three times daily as needed for muscle spasm/pain CYCLOBENZAPRINE HCL 76266074910 No Longer Active Jillina Frazell [employer] Active HYDROCODONE-ACETAMINOPHEN 5-325 MG TABS 1 po q6hr PRN Pain 03/09 HYDROCODONE-ACETAMINOPHEN 17830036405 No Longer Active Matthewllina Frazel l [employer]IVER Active AUGMENTIN 500-125 MG ORAL TABS 1 by mouth twice a day AMOXICILLIN-POT CLAVULANATE 93901830545 No Longer Active Jillina Frazell [employer]IVER Active DICLOFENAC SODIUM 50 MG TBEC 1 tablet by mouth four times da tom PRN Pain DICLOFENAC SODIUM 20018211612 No Longer Active Jillin a Karmenl [employer]IVER Active PROMETHAZINE HCL 25 MG TABS 1 four times a day as needed for nausea/vomiting PROMETHAZINE HCL 85763015520 No Longer Active Abdirahman Rios MD Active HYDROCODONE-ACETAMINOPHEN 5-325 MG TABS 1 tab by mouth every 6 hours as needed PRN Pain HYDROCODONE-ACETAMINOPHEN 41095037507 No Longer Active Abdirahman Rios MD Active GEMFIBROZIL 600 MG TABS 1 po BID GEMFIBROZIL [id number] 005 Active Abdirahman Rios MD Active PERCOCET 5-325 MG ORAL TABS 1 every 6 hours as needed OXYCODONE-ACETAMINOPHEN 26951420891 No Longer Active Abdirahman Rios MD Active PERCOCET 5-325 MG TAB 1 tab po q 6 -8 hours, prn for severe pain OXYCODONE-ACETAMINOPHEN 65105913722 No Longer Active Abdirahman Rios MD Active HYDROCODONE-ACETAMINOPHEN 5-325 MG TABS 1 po q6hr PRN pain 06/30 HYDROCODONE-ACETAMINOPHEN 89265466696 No Longer Active 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 GLUCOPHAGE 500 MG ORAL TABS one by mouth 3 times a day METFORMIN HCL 63981536434 No Longer Active Matthewllina Karmenl [employer]IVER Ac tive PERCOCET 10-325 MG TABS 1 tab by mouth every 6 hours , use sparingly for severe pain OXYCODONE-ACETAMINOPHEN 11893834546 No Longer A ctive Abdirahman Rios MD Active EMLA 2.5-2.5 % EXT CREA apply to skin lesion q 6 hours, prn 2014 LIDOCAINE-PRILOCAINE 36454043161 No Longer Active Abdirahman Rios MD Active PERCOCET 10-325 MG ORAL TABS 1 every 4 hours as needed OXYCODONE-ACETAMINOPHEN 79438607489 No Longer Active Abdirahman Rios MD Active AUGMENTIN 875-125 MG TAB 1 tab by mouth twice daily with food 20 21/10/13 AMOXICILLIN-POT CLAVULANATE 89199447546 No Longer Active Ursula Moser [employer] Active PROAIR HFA 108 (90 BASE) MCG/ACT AERS 2 puff q 4-6 hrs PRN 01/24 ALBUTEROL SULFATE 52250296661 No Longer Active Kalpesh Dong MD Active PREDNISONE 20 MG TAB 2 tabs daily for 3 days, 1 t ab daily for 3 days, 1/2 tab daily for 2 days PREDNISONE 02918565691 No Longer Active Abdirahman Rios MD Active KEFLEX 500 MG CAP 1 po qid CEPHALEXIN 961726108 20 No Longer Active Kalpesh Dong MD Active PERCOCET 5-325 MG TAB 1 every 6 hours as needed OXYCODONE-ACETAMINOPHEN 46160444660 No Longer Active Shola MCGILL Active LC-5 LIDOCAINE 5 % CREA apply 1 time daily to affected area 2013 LIDOCAINE (ANORECTAL) 63010963971 No Longer Active Hira muniz [employer] Active HYDROCODONE-ACETAMINOPHEN 10-325 MG TABS 1 by mouth ev chaka 8 hours as needed for pain HYDROCODONE-ACETAMINOPHEN 26924988899 No Longer Active Jillina Joyzell [employer] DRIVER Active LORATADINE 10 MG TABS 1 tablet by mouth daily L ORATADINE 60262950052 No Longer Active Jillina Frazell [employer]IVER Active DIFLUCAN 150 MG TAB 1 qODay x 2 doses FLUCONAZO LE 09390539157 No Longer Active Jillina Frazell [employer] Active CYCLOBENZAPRINE HCL 10 MG TABS 1/2 - 1 tab PO tid PRN back p ain, muscle spasm CYCLOBENZAPRINE HCL 67998346959 No Longer Active Karen siri Frazell [employer]IVER Active AUGMENTIN 875-125 MG TAB 1 tab by mouth twice daily with food 20 22/05/07 AMOXICILLIN-POT CLAVULANATE 80709545959 No Longer Active Loida Rios MD Active MOBIC 15 MG TABS 1 tab daily MELOXICAM 344156979 14 No Longer Active Abdirahman Rios MD Active PERCOCET 7.5-325 MG TABS 1 PO tid PRN pain OXYCODONE-ACETAMINOPHEN 15751060568 No Longer Active Abdirahman Rios MD Active LIDODERM 5 % PTCH One patch to painful area [place] N. On for 12 hrs, off for 12 hrs. LIDOCAINE 39222752469 No Longer Active Abdirahman Rios MD Active PERCOCET 7.5-325 MG TABS 1 PO q 8 hrs PRN pain OXYCODONE-ACETAMINOPHEN 37664663548 No Longer Active Shola MCGILL Active HYDROCODONE-ACETAMINOPHEN 7.5-325 MG TABS 1 by mouth e very 6 hours as needed for pain HYDROCODONE-ACETAMINOPHEN 57042497677 No Longer Active Good Julian MD Active CLINDAMYCIN HCL 300 MG CAPS 1 po QID x 7 days CLINDAMYCIN HCL 70237478642 No Longer Active Abdirahman Rios MD Activ e BACTRIM DS 800-160 MG TABS 1 po BID x 7 days 5 SULFAMETHOXAZOLE-TRIMETHOPRIM 72043916740 No Longer Active Abdirahman Rios MD Active ENDOCET 10-325 MG TABS 1 q 6 hr prn OXYCODONE-ACETAMINOPHEN 95097090313 No Longer Active Abdirahman Rios MD Active IBUPROFEN 800 MG TABS 1 tid prn IBUPROFEN 592982 77033 No Longer Active Abdirahman Rios MD Active BACTRIM DS 800-160 MG TABS by mouth twice a day 11/05 SULFAMETHOXAZOLE-TRIMETHOPRIM 09803853478 No Longer Active Good Julian MD Active HYDROCODONE-ACETAMINOPHEN 7.5-325 MG TABS 1 four times a day as needed for pain HYDROCODONE-ACETAMINOPHEN 97278608936 No Longer Activ e Good Julian MD Active KEFLEX 500 MG CAP 1 tab po tid CEPHALEXIN 709835 79743 No Longer Active Hira Moser APRN Active IBUPROFEN 800 MG TAB 1 pill three times daily as needed for pain IBUPROFEN 28358857631 No Longer Active Kalpesh Dong MD Active PROMETHAZINE-CODEINE 6.25-10 MG/5ML SYRP 1 tsp every 6 hrs prn c ough PROMETHAZINE-CODEINE 77416736016 No Longer Active Kalpesh Carr Active HYDROCODONE-ACETAMINOPHEN 5-325 MG TABS 1 tab by mouth every 6 hours as needed HYDROCODONE-ACETAMINOPHEN 76693336311 No Longer Activ e Shola MCGILL Active CEPHALEXIN 500 MG CAPS 1 PO bid x 7 days CEPHAL EXIN 90263971241 No Longer Active Shola MCGILL Active BACTRIM DS 800-160 MG TAB 1 tab by mouth twice daily 2 TRIMETHOPRIM-SULFAMETHOXAZOLE 11246689394 No Longer Active Kalpesh Dong MD Active HYDROCODONE-ACETAMINOPHEN 5-325 MG TABS 1 PO tid PRN pain 5 HYDROCODONE-ACETAMINOPHEN 46610434098 No Longer Active Abhinav Galvan MD Active IMPLANON 68 MG IMPL IMPLANTED IN LEFT ARM ETONO GESTREL 96747362150 No Longer Active Hira Moser APRN Active AMOXICILLIN 500 MG TABS 2 tabs PO bid x 10 d AM OXICILLIN 74945044069 No Longer Active Kalpesh Dong MD Active LEVAQUIN 500 MG TABS 1 PO q day x 7 days LEVOFL OXACIN 41769177190 No Longer Active Shola MCGILL Active AMITRIPTYLINE HCL 25 MG TAB 1 tab by mouth daily 60 minutes before bedtime AMITRIPTYLINE HCL 37390041758 No Longer Active Shola MCGILL Active LORTAB 5 5-500 MG TABS 1/2 to 1 tablet by mouth go ry 6 hours as needed for pain HYDROCODONE-ACETAMINOPHEN 51831644832 No Longer Active Shola MCGILL Active CEPHALEXIN 500 MG TABS Take one by mouth four times daily, morning, noon, early evening and bedtime. CEPHALEXIN 92892313990 No Long er Active Hira Moser APRN Active TYLENOL/CODEINE #3 300-30 MG TAB 1-2 po q6hr PRN Pain ACETAMINOPHEN-CODEINE 99139605658 No Longer Active Edilberto Marino DO Active PRISTIQ 50 MG [id number] 1 po qd DESVENLAFAXI NE SUCCINATE 17296844179 No Longer Active Edilberto Marino DO Active PENICILLIN V POTASSIUM 500 MG TAB 1 four times a day 2 PENICILLIN V POTASSIUM 15063129084 No Longer Active Edilberto Marino DO Active DOXYCYCLINE HYCLATE 100 MG CAPS Take one (1) tablet by mouth twice a day DOXYCYCLINE HYCLATE 91887913240 No Longer Active Ronnie Galvan MD Active HYDROCODONE-ACETAMINOPHEN 5-325 MG TABS 1 po q 6hr PRN Pain 2011 HYDROCODONE-ACETAMINOPHEN 41571162954 No Longer Active Patri joan Perez RN Active BACTRIM DS 800-160 MG TAB 1 tab by mouth twice daily 2 TRIMETHOPRIM-SULFAMETHOXAZOLE 62599462332 No Longer Active Kalpesh Dong MD Active LORTAB 5 5-500 MG TABS 1/2 to 1 tablet by mouth go ry 4 hours as needed for pain HYDROCODONE-ACETAMINOPHEN 84031588909 No Longer Active Kalpesh Dong MD Active GENERESS FE 0.8-25 MG-MCG CHEW Take one by mouth daily NORETHIN-ETH ESTRADIOL-FE 81467505271 No Longer Active Kalpesh Dong MD Active HYDROCODONE-ACETAMINOPHEN 7.5-500 MG TABS 1-2 every 4 hours as needed HYDROCODONE-ACETAMINOPHEN 67526575621 No Longer Activ e Kalpesh Dong MD Active FERROUS SULFATE 325 (65 FE) MG TABS 1 tablet by mouth twice yung y FERROUS SULFATE 15069306324 No Longer Active Kalpesh Dong MD Active IBUPROFEN 600 MG TAB 1 po q6-8hr PRN IBUPROFEN 87034632285 No Longer Active Kalpesh Dong MD Active SPIRONOLACTONE 25 MG TAB 1 tablet by mouth daily 01/22 SPIRONOLACTONE 58647761732 No Longer Active Kalpesh Dong MD Acti ve HYDROCODONE-ACETAMINOPHEN 7.5-325 MG TABS 1 po QID PRN Pain 2011 HYDROCODONE-ACETAMINOPHEN 41809305048 No Longer Active Kalpesh Dong MD Active CLINDAMYCIN HCL 300 MG CAPS 1 po q6hr x 7 days CLINDAMYCIN HCL 62901202554 No Longer Active Edilberto Marino DO Active PREDNISONE 20 MG TAB 2 tabs daily for 4 days, 1 t ab daily for 4 days, 1/2 tab daily for 4 days PREDNISONE 73043891515 No Longer Active Edilberto Marino DO Active PERCOCET 5-325 MG TABS 1 tablet by mouth every 6 hours as ne eded for pain OXYCODONE-ACETAMINOPHEN 06934077806 No Longer Active Abdirahman Rios MD Active VITAMINS TABS Take one by mouth daily MV & MIN W/FE-FA TABS 33639370996 No Longer Active Abdirahman Rios MD Active LUIS 3-0.02 MG TABS 1 tablet by mouth daily as directed DROSPIRENONE-ETHINYL ESTRADIOL 58157401939 No Longer Active Abdirahman Rios MD Active LORATADINE 10 MG TABS 1 tablet by mouth daily L ORATADINE 83656094917 No Longer Active Kalpesh Dong MD Active HYDROCODONE-ACETAMINOPHEN 5-325 MG TABS 1 po q 6hr PRN Pain 2010 HYDROCODONE-ACETAMINOPHEN 57285570964 No Longer Active Edilberto Marino DO Active BACTRIM DS 800-160 MG TAB 1 tab by mouth twice daily 2 TRIMETHOPRIM-SULFAMETHOXAZOLE 49558925748 No Longer Active Abdirahman Rios MD Active 28-0.8 MG TABS Take one by mouth daily 09/20 VIT-FE FUMARATE-FA 08714222638 No Longer Active Abdirahman Rios MD Active CIPRO 500 MG TAB 1 tablet by mouth twice daily CIPROFLOXACIN HCL 47839969299 No Longer Active Abdirahman Rios MD Active BENADRYL 25 MG CAP 1 po q8hr PRN Congestion DIPHENHYDRAMINE HCL 94909941551 No Longer Active Abdirahman Rios MD Active ZOLOFT 50 MG TAB 1 po qd SERTRALINE HCL 526075 86378 No Longer Active Abdirahman Rios MD Active AMOXICILLIN 875 MG TABS 1 tab by mouth twice daily 201 08/09/13 AMOXICILLIN 17166389872 No Longer Active Abdirahman Rios MD Activ e AMOXICILLIN 875 MG TABS 1 tab by mouth twice daily 201 07/19/27 AMOXICILLIN 78417672746 No Longer Active Abdirahman Rios MD Activ e BACTRIM DS 800-160 MG TAB 2 tab by mouth twice daily 2 TRIMETHOPRIM-SULFAMETHOXAZOLE 18906279096 No Longer Active Abdirahman Rios MD Active KEFLEX 500 MG CAP 1 po tid x 10 days CEPHALEXIN 66933607232 No Longer Active Abdirahman Rios MD Active AMOXICILLIN 875 MG TABS 1 tab by mouth twice daily 201 07/18/07 AMOXICILLIN 65491491726 No Longer Active Abdirahman Rios MD Activ e BACTRIM DS 800-160 MG TAB 2 tab by mouth twice daily 2 BACTRIM DS 800-160 MG TAB 501036 TRIMETHOPRIM-SULFAMETHOXAZOLE Inactive ZOLOFT 50 MG TAB 1 po qd ZOLOFT 50 MG TAB 3129 41 SERTRALINE HCL Inactive BENADRYL 25 MG CAP 1 po q8hr PRN Congestion BENADRYL 25 MG CAP [id number] DIPHENHYDRAMINE HCL Inactive 28-0.8 MG TABS Take one by mouth daily 09/20 28-0.8 MG TABS VIT-FE FUMARATE-FA Inactive HYDROCODONE-ACETAMINOPHEN 5-325 MG TABS 1 po q 6hr PRN Pain 2010 HYDROCODONE-ACETAMINOPHEN 5-325 MG TABS 250024 HYDROCODONE-ACETAMINOPHEN Inactive LORATADINE 10 MG TABS 1 tablet by mouth daily LORATADINE 10 MG TABS 588191 LORATADINE Inactive LUIS 3-0.02 MG TABS 1 tablet by mouth daily as directed LUIS 3-0.02 MG TABS 096245 DROSPIRENONE-ETHINYL ESTRADIOL Inactive VITAMINS TABS Take one by mouth daily VITAMINS TABS MV & MIN W/FE-FA TABS Inactive PERCOCET 5-325 MG TABS 1 tablet by mouth every 6 hours as ne eded for pain PERCOCET 5-325 MG TABS 5522382 OXYCODONE-ACETAMIN OPHEN Inactive PREDNISONE 20 MG TAB 2 tabs daily for 4 days, 1 t ab daily for 4 days, 1/2 tab daily for 4 days PREDNISONE 20 MG TAB 530349 PREDNISON E Inactive CLINDAMYCIN HCL 300 MG CAPS 1 po q6hr x 7 days CLINDAMYCIN HCL 300 MG CAPS 024538 CLINDAMYCIN HCL Inactive HYDROCODONE-ACETAMINOPHEN 7.5-325 MG TABS 1 po QID PRN Pain 2011 HYDROCODONE-ACETAMINOPHEN 7.5-325 MG TABS 030523 HYDROCODONE-ACETAMINOPHEN Inactive SPIRONOLACTONE 25 MG TAB 1 tablet by mouth daily 01/22 SPIRONOLACTONE 25 MG TAB 958904 SPIRONOLACTONE Inactive IBUPROFEN 600 MG TAB 1 po q6-8hr PRN IBUPROFEN 600 MG TAB 376229 IBUPROFEN Inactive FERROUS SULFATE 325 (65 FE) MG TABS 1 tablet by mouth twice yung y FERROUS SULFATE 325 (65 FE) MG TABS 859277 FERROUS SULF ATE Inactive HYDROCODONE-ACETAMINOPHEN 7.5-500 MG TABS 1-2 every 4 hours as needed HYDROCODONE-ACETAMINOPHEN 7.5-500 MG TABS HYDROCODONE-ACETAMINOPHEN Inactive GENERESS FE 0.8-25 MG-MCG CHEW Take one by mouth daily GENERESS FE 0.8-25 MG-MCG CHEW [id number] NORETHIN-ETH ESTRADIOL-FE Inactive LORTAB 5 5-500 MG TABS 1/2 to 1 tablet by mouth go ry 4 hours as needed for pain LORTAB 5 5-500 MG TABS HYDROCODONE-A CETAMINOPHEN Inactive BACTRIM DS 800-160 MG TAB 1 tab by mouth twice daily 2 BACTRIM DS 800-160 MG TAB 499367 TRIMETHOPRIM-SULFAMETHOXAZOLE Inac tive HYDROCODONE-ACETAMINOPHEN 5-325 MG TABS 1 po q 6hr PRN Pain 2011 HYDROCODONE-ACETAMINOPHEN 5-325 MG TABS 782955 HYDROCODONE-ACETAMINOPHEN Inactive DOXYCYCLINE HYCLATE 100 MG CAPS Take one (1) tablet by mouth twice a day DOXYCYCLINE HYCLATE 100 MG CAPS 1542401 DOXYCYCLINE HYCLATE Inactive PENICILLIN V POTASSIUM 500 MG TAB 1 four times a day 2 PENICILLIN V POTASSIUM 500 MG TAB 493310 PENICILLIN V POTASSIUM Siri ctive PRISTIQ 50 MG [id number] 1 po qd PRISTIQ 50 MG [id number] DESVENLAFAXINE SUCCINATE Inactive TYLENOL/CODEINE #3 300-30 MG TAB 1-2 po q6hr PRN Pain TYLENOL/CODEINE #3 300-30 MG TAB 063011 ACETAMINOPHEN-CODEINE Inact krishna CEPHALEXIN 500 MG TABS Take one by mouth four times daily, morning, noon, early evening and bedtime. CEPHALEXIN 500 MG TABS 004127 CEPHALEXIN Inactive LORTAB 5 5-500 MG TABS 1/2 to 1 tablet by mouth go ry 6 hours as needed for pain LORTAB 5 5-500 MG TABS HYDROCODONE-A CETAMINOPHEN Inactive AMITRIPTYLINE HCL 25 MG TAB 1 tab by mouth daily 60 minutes before bedtime AMITRIPTYLINE HCL 25 MG TAB 107206 AMITRIPTYLINE HCL Inactive AMOXICILLIN 500 MG TABS 2 tabs PO bid x 10 d 7 AMOXICILLIN 500 MG TABS 599091 AMOXICILLIN Inactive IMPLANON 68 MG IMPL IMPLANTED IN LEFT ARM IMPLANON 68 MG IMPL ETONOGESTREL Inactive HYDROCODONE-ACETAMINOPHEN 5-325 MG TABS 1 PO tid PRN pain 5 HYDROCODONE-ACETAMINOPHEN 5-325 MG TABS 907967 HYDROCODONE-ACETAMIN OPHEN Inactive BACTRIM DS 800-160 MG TAB 1 tab by mouth twice daily 2 BACTRIM DS 800-160 MG TAB [id number] TRIMETHOPRIM-SULFAMETHOXAZOLE Inac tive CEPHALEXIN 500 MG CAPS 1 PO bid x 7 days CEPHALEXIN 500 MG CAPS 826790 CEPHALEXIN Inactive HYDROCODONE-ACETAMINOPHEN 5-325 MG TABS 1 tab by mouth every 6 hours as needed HYDROCODONE-ACETAMINOPHEN 5-325 MG TABS 932852 HYDROCODONE-ACETAMINOPHEN Inactive PROMETHAZINE-CODEINE 6.25-10 MG/5ML SYRP 1 tsp every 6 hrs prn c ough PROMETHAZINE-CODEINE 6.25-10 MG/5ML SYRP 537930 PROMETH AZINE-CODEINE Inactive IBUPROFEN 800 MG TAB 1 pill three times daily as needed for pain IBUPROFEN 800 MG TAB 291120 IBUPROFEN Inactive KEFLEX 500 MG CAP 1 tab po tid KEFLEX 500 MG CAP 799619 CEPHALEXIN Inactive HYDROCODONE-ACETAMINOPHEN 7.5-325 MG TABS 1 four times a day as needed for pain HYDROCODONE-ACETAMINOPHEN 7.5-325 MG TABS 369058 HYDROCODONE-ACETAMINOPHEN Inactive BACTRIM DS 800-160 MG TABS by mouth twice a day 11/05 BACTRIM DS 800-160 MG TABS 19820910 SULFAMETHOXAZOLE-TRIMETHOPRIM Inactive IBUPROFEN 800 MG TABS 1 tid prn IBUPROFEN 800 MG TABS 209074 IBUPROFEN Inactive ENDOCET 10-325 MG TABS 1 q 6 hr prn ENDOC ET 10-325 MG TABS 9324858 OXYCODONE-ACETAMINOPHEN Inactive HYDROCODONE-ACETAMINOPHEN 7.5-325 MG TABS 1 by mouth e very 6 hours as needed for pain HYDROCODONE-ACETAMINOPHEN 7.5-325 MG TABS 034468 HYDROCODONE-ACETAMINOPHEN Inactive PERCOCET 7.5-325 MG TABS 1 PO q 8 hrs PRN pain PERCOCET 7.5-325 MG TABS 9754941 OXYCODONE-ACETAMINOPHEN Inactive LIDODERM 5 % PTCH One patch to painful area [place] N. On for 12 hrs, off for 12 hrs. LIDODERM 5 % PTCH 9340067 LIDOCAINE Inactiv e PERCOCET 7.5-325 MG TABS 1 PO tid PRN pain PERCOCET 7.5- 325 MG TABS 9491467 OXYCODONE-ACETAMINOPHEN Inactive MOBIC 15 MG TABS 1 tab daily MOBIC 15 MG TABS 15 2695 MELOXICAM Inactive CYCLOBENZAPRINE HCL 10 MG TABS 1/2 - 1 tab PO tid PRN back p ain, muscle spasm CYCLOBENZAPRINE HCL 10 MG TABS 555276 CYCLOBENZA JOSEPH HCL Inactive LORATADINE 10 MG TABS 1 tablet by mouth daily LORATADINE 10 MG TABS 938909 LORATADINE Inactive HYDROCODONE-ACETAMINOPHEN 10-325 MG TABS 1 by mouth ev chaka 8 hours as needed for pain HYDROCODONE-ACETAMINOPHEN 10-325 MG TABS 665352 HYDROCODONE-ACETAMINOPHEN Inactive LC-5 LIDOCAINE 5 % CREA apply 1 time daily to affected area 2013 LC-5 LIDOCAINE 5 % CREA 6046456 LIDOCAINE (ANORECTAL) In active PERCOCET 5-325 MG TAB 1 every 6 hours as needed PERCOCET 5-325 MG TAB 2764128 OXYCODONE-ACETAMINOPHEN Inactive KEFLEX 500 MG CAP 1 po qid KEFLEX 500 MG CAP 30 9114 CEPHALEXIN Inactive PROAIR HFA 108 (90 BASE) MCG/ACT AERS 2 puff q 4-6 hrs PRN 01/24 PROAIR HFA 108 (90 BASE) MCG/ACT AERS ALBUTEROL SULFATE Inactive PERCOCET 10-325 MG ORAL TABS 1 every 4 hours as needed PERCOCET 10-325 MG ORAL TABS 3053720 OXYCODONE-ACETAMINOPHEN Inactiv e EMLA 2.5-2.5 % EXT CREA apply to skin lesion q 6 hours, prn 2014 EMLA 2.5-2.5 % EXT CREA 157074 LIDOCAINE-PRILOCAINE Siri ctive PERCOCET 10-325 MG TABS 1 tab by mouth every 6 hours , use sparingly for severe pain PERCOCET 10-325 MG TABS 9286363 OXYCODONE-ACETAMINOPHEN Inactive GLUCOPHAGE 500 MG ORAL TABS one by mouth 3 times a day GLUCOPHAGE 500 MG ORAL TABS 703264 METFORMIN HCL Inactive HYDROCODONE-ACETAMINOPHEN 5-325 MG TABS 1 po q6hr PRN pain 06/30 HYDROCODONE-ACETAMINOPHEN 5-325 MG TABS 815372 HYDROCOD ONE-ACETAMINOPHEN Inactive PERCOCET 5-325 MG TAB 1 tab po q 6 -8 hours, prn for severe pain PERCOCET 5-325 MG TAB 2625568 OXYCODONE-ACETAMINOPHEN In active PERCOCET 5-325 MG ORAL TABS 1 every 6 hours as needed PERCOCET 5-325 MG ORAL TABS 2945301 OXYCODONE-ACETAMINOPHEN Inactive DICLOFENAC SODIUM 50 MG TBEC 1 tablet by mouth four times da tom PRN Pain DICLOFENAC SODIUM 50 MG TBEC 439959 DICLOFENAC S ODIUM Inactive AUGMENTIN 500-125 MG ORAL TABS 1 by mouth twice a day AUGMENTIN 500-125 MG ORAL TABS 136299 AMOXICILLIN-POT CLAVULANATE I nactive HYDROCODONE-ACETAMINOPHEN 5-325 MG TABS 1 po q6hr PRN Pain 03/09 HYDROCODONE-ACETAMINOPHEN 5-325 MG TABS [id number] HYDROCOD ONE-ACETAMINOPHEN Inactive CYCLOBENZAPRINE HCL 10 MG TABS 1 tablet by mouth three times daily as needed for muscle spasm/pain CYCLOBENZAPRINE HCL 10 MG TABS [id number] CYCLOBENZAPRINE HCL Inactive SPRINTEC 28 0.25-35 MG-MCG TABS 1 pill by mouth daily for bi rth control SPRINTEC 28 0.25-35 MG-MCG TABS [id number] NORGESTIMATE-ETH ESTRADIOL Inactive PERCOCET 5-325 MG TAB 1 tab po q 6 hours, prn severe pain PERCOCET 5-325 MG TAB [id number] OXYCODONE-ACETAMINOPHEN Inactive IBUPROFEN 600 MG ORAL TABS 1 by mouth twice a day 2014 IBUPROFEN 600 MG ORAL TABS 499165 IBUPROFEN Inactive CYMBALTA 30 MG CPEP 1 cap by mouth daily CYMBALTA 30 MG CPEP [id number] DULOXETINE HCL Inactive HYDROCODONE-ACETAMINOPHEN 5-325 MG TABS 1 po q6hr PRN Pain 04/09 HYDROCODONE-ACETAMINOPHEN 5-325 MG TABS [id number] HYDROCOD ONE-ACETAMINOPHEN Inactive TRAZODONE HCL 100 MG TAB 0.5 to 1 po qHS PRN Insomnia TRAZODONE HCL 100 MG TAB [id number] TRAZODONE HCL Inactive ALPRAZOLAM 0.5 MG TABS 1 po BID PRN Anxiety ALPRAZOLAM 0.5 MG TABS 414783 ALPRAZOLAM Inactive [id number] 50-325-40 MG ORAL CAPS 1-2 po TID VA N Headache [id number] 50-325-40 MG ORAL CAPS 2 05479 [id number] Inactive HYDROCODONE-ACETAMINOPHEN 5-325 MG TABS 1 po TID PRN Pain 9 HYDROCODONE-ACETAMINOPHEN 5-325 MG TABS 708128 HYDROCODONE-ACETAMIN OPHEN Inactive PERCOCET 10-325 MG TABS 1 tablet every 8 hours as needed for antonia n PERCOCET 10-325 MG TABS [id number] OXYCODONE-ACETAMINOPHEN Inactive ONDANSETRON 4 MG TBDP 1 q4h PRN nausea ON DANSETRON 4 MG TBDP 140609 ONDANSETRON Inactive VIIBRYD 10 & 20 & 40 MG KIT 1 po qd as directed 07/24 VIIBRYD 10 & 20 & 40 MG KIT VILAZODONE HCL Inactive DICLOFENAC SODIUM 50 MG TBEC 1 tablet by mouth four times da tom PRN Pain DICLOFENAC SODIUM 50 MG TBEC 486176 DICLOFENAC S ODIUM Inactive PERCOCET 10-325 MG ORAL TABS one every 6 hours prn pain PERCOCET 10-325 MG ORAL TABS [id number] OXYCODONE-ACETAMINOPHEN Inactiv e PERCOCET 10-325 MG ORAL TABS take 1 tab by mouth q 4hours as needed for pain PERCOCET 10-325 MG ORAL TABS [id number] OXYCODONE-ACETAMINOPHEN Inactive FLONASE ALLERGY RELIEF 50 MCG/ACT NASAL SUSP One spray in each nostril twice a day. FLONASE ALLERGY RELIEF 50 MCG/ACT NASAL S RESIDENTIAL [id number] FLUTICASONE PROPIONATE Inactive AUGMENTIN 875-125 MG TAB 1 tab by mouth twice daily with food 20 23/05/16 AUGMENTIN 875-125 MG TAB [id number] AMOXICILLIN-POT [place] Inactive HYDROCODONE-ACETAMINOPHEN 5-325 MG TABS 1 tab by mouth every 6 hours as needed for pain HYDROCODONE-ACETAMINOPHEN 5-325 MG TABS 8 61548 HYDROCODONE-ACETAMINOPHEN Inactive PERCOCET 10-325 MG TABS 1 tablet every 8 hours as needed for antonia n PERCOCET 10-325 MG TABS [id number] OXYCODONE-ACETAMINOPHEN Inactive LC-4 LIDOCAINE 4 % EXT CREA apply q 6 hours, prn 08/03 LC-4 LIDOCAINE 4 % EXT CREA [id number] LIDOCAINE Inactive AMOXICILLIN 875 MG TABS 1 tab by mouth twice daily 201 07/18/07 AMOXICILLIN 875 MG TABS 112581 AMOXICILLIN Inactive KEFLEX 500 MG CAP 1 po tid x 10 days KEFLEX 500 MG CAP [id number] CEPHALEXIN Inactive AMOXICILLIN 875 MG TABS 1 tab by mouth twice daily 201 07/19/27 AMOXICILLIN 875 MG TABS 140586 AMOXICILLIN Inactive AMOXICILLIN 875 MG TABS 1 tab by mouth twice daily 201 08/09/13 AMOXICILLIN 875 MG TABS 298116 AMOXICILLIN Inactive CIPRO 500 MG TAB 1 tablet by mouth twice daily CIPRO 500 MG TAB 034328 CIPROFLOXACIN HCL Inactive BACTRIM DS 800-160 MG TAB 1 tab by mouth twice daily 2 BACTRIM DS 800-160 MG TAB 160597 TRIMETHOPRIM-SULFAMETHOXAZOLE Inac tive LEVAQUIN 500 MG TABS 1 PO q day x 7 days LEVAQUIN 500 MG TABS 888346 LEVOFLOXACIN Inactive CLINDAMYCIN HCL 300 MG CAPS 1 po QID x 7 days CLINDAMYCIN HCL 300 MG CAPS 434182 CLINDAMYCIN HCL Inactive AUGMENTIN 875-125 MG TAB 1 tab by mouth twice daily with food 20 22/05/07 AUGMENTIN 875-125 MG TAB 384096 AMOXICILLIN-POT [place] Inactive DIFLUCAN 150 MG TAB 1 qODay x 2 doses DIFLUCAN 150 MG TAB 118210 FLUCONAZOLE Inactive PREDNISONE 20 MG TAB 2 tabs daily for 3 days, 1 t ab daily for 3 days, 1/2 tab daily for 2 days PREDNISONE 20 MG TAB 995136 PREDNISON E Inactive AUGMENTIN 875-125 MG TAB 1 tab by mouth twice daily with food 20 21/10/13 AUGMENTIN 875-125 MG TAB 597863 AMOXICILLIN-POT [place] Inactive HYDROCODONE-ACETAMINOPHEN 5-325 MG TABS 1 tab by mouth every 6 hours as needed PRN Pain HYDROCODONE-ACETAMINOPHEN 5-325 MG TABS 8 77180 HYDROCODONE-ACETAMINOPHEN Inactive PROMETHAZINE HCL 25 MG TABS 1 four times a day as needed for nausea/vomiting PROMETHAZINE HCL 25 MG TABS 206437 PROMETHAZINE HCL Inactive Advance Directives Directive Description Start Date PERMISSION TO SHARE Immunizations Vaccine Administration Date Value Standard Alf cription Seasonal influenza vaccine, injectable, containing preservative, for > 3 years old (Afluria, FluLaval, Fluzone, Fluvirin, Fluarix, Agriflu(>= 18 yo)) Fluzone (>3 yrs.) [[id number]] Influenza, seasonal, inject able Seasonal influenza vaccine, injectable, preservative free, for > 3 years old (Afluria, FluLaval, Fluzone, Fluvirin, Fluarix, Agriflu(>= 18 yo)) Fluzone preservative free (>3 yrs.) [[id number]] Influenza, seasonal, injectable, preservative free Seasonal influenza vaccine, injectable, containing preservative, for > 3 years old (Afluria, FluLaval, Fluzone, Fluvirin, Fluarix, Agriflu(>= 18 yo)) Fluzone (>3 yrs.) [[id number]] Influenza, seasonal, inject able Seasonal influenza vaccine, injectable, containing preservative, for > 3 years old (Afluria, FluLaval, Fluzone, Fluvirin, Fluarix, Agriflu(>= 18 yo)) Fluzone (>3 yrs.) [[id number]] Influenza, seasonal, inject able dT (Diphtheria and [...] Panel - Chemistry sodium, serum 142 mmol/L [phone]/05/12 potassium, serum 4.8 mmol/L 3.5-5.2 chloride, serum [...] Panel - Chemistry cholesterol, serum 165 mg/dL 480-732 3067/05/12 triglyceride, serum, fasting 524 mg/dL 30-200 HDL cholesterol, serum 24 mg/dL 32-96 cholesterol, serum 181 mg/dL 129-305 1677/09/01 triglyceride, serum, fasting 341 mg/dL 30-200 HDL [...] negative Encounters Code Encounter Date Provider Facility CPT-72519 Level 3 Est. Patient 05:31:41 [employer] Kalpesh goins MD [facility] CPT-46174 Level 3 Est. Patient 11:22:02 [employer] WORKER Hira muniz [facility] CPT-15394 Level 3 Est. Patient 21:00:18 [employer] WORKER Rajni danielson [facility] CPT-43963 Level 3 Est. Patient 14:15:00 [employer] WORK[employer] Kalpesh goins MD [facility] CPT-52137 Level 2 Est. Patient 19:57:52 [employer] WORK[employer] Rajni danielson [facility] CPT-54167 Level 3 Est. Patient 16:58:40 [employer] WORK[employer] Bj funes MD [facility] CPT-48451 Level 3 Est. Patient 08:51:33 CDT Kalpesh goins MD [facility] CPT-02159 Level 4 Est. Patient 14:14:53 CDT Abdirahman Rios MD [facility] CPT-65996 Level 3 Est. Patient 15:47:40 CDT Kalpesh goins MD -88291 Level 3 Est. Patient 10:57:26 CDT Abdirahman Rios MD [facility] CPT-32123 Level 3 Est. Patient 14:29:53 CDT Abhinav Galvan MD [facility]-19924 Level 2 Est. Patient 16:33:01 CDT Kalpesh goins MD -[id number] Level 4 Est. Patient 16:44:56 CDT Abdirahman Rios MD [facility] CPT-76052 Level 2 Est. Patient 07:49:32 CDT Kalpesh goins MD [facility] CPT-83114 Level 3 New Patient 15:47:11 [employer] WORK[employer] Bj huber MD -39058 Level 4 Est. Patient 14:37:38 [employer] WORK[employer] Abdirahman Rios MD [facility] CPT-45218 Level 2 Est. Patient 13:32:17 [employer] WORKER Kalpesh goins MD -75493 Level 3 Est. Patient 17:32:57 [employer] WORKER Edilberto tiwari [facility] CPT-79853 Level 3 Est. Patient 17:22:33 [employer] WORKER Edilberto tiwari [facility] CPT-26343 Level 2 Est. Patient 16:57:09 [employer] WORKER Kalpesh goins MD -16484 Level 3 Est. Patient 14:03:08 [employer] WORK[employer] Abdirahman Rios MD [facility] CPT-62455 Level 3 Est. Patient 18:12:34 CDT Shola Wright [facility] CPT-16406 Level 3 Est. Patient 19:34:46 CDT Shola Wright [facility] CPT-88605 Level 3 Est. Patient 14:19:37 CDT Abdirahman Rios MD [facility] CPT-64856 Level 3 Est. Patient 14:11:58 CDT Kalpesh goins MD [facility] CPT-08705 Level 3 Est. Patient 16:50:00 CDT Michelle BRADFORDP [facility] CPT-59049 Level 3 Est. Patient 17:11:32 [employer] WORK[employer] Brandie bates MD PhD [facility] CPT-36764 Level 3 Est. Patient 16:31:47 [employer] WORKER Shola Wright [facility] CPT-94128 Level 3 Est. Patient 17:51:10 [employer] WORKER Abhinav Galvan MD [facility] CPT-10086 Level 4 Est. Patient 12:54:56 [employer] WORKER Kalpesh goins MD -28006 Level 4 Est. Patient 12:53:56 [employer] WORK[employer] Kalpesh goins MD [facility] CPT-79219 Level 3 Est. Patient 17:56:58 CDT Shola Wright [facility] CPT-75796 Level 3 Est. Patient 14:26:20 CDT Janak butcher [facility] CPT-85437 Level 3 Est. Patient 09:38:41 CDT Shola Wright [facility] CPT-92955 Level 3 Est. Patient 14:45:26 CDT Edilberto tiwari [facility] CPT-37583 Level 3 Est. Patient 10:51:33 CDT Hira muniz [facility] CPT-90638 Level 3 Est. Patient 11:57:55 [employer] WORK[employer] Shola Wright [facility] CPT-71459 Level 3 Est. Patient 09:53:33 [employer] WORKER Edilberto tiwari [facility] CPT-24186 Level 3 Est. Patient 14:42:54 [employer] WORKER Abhinav Galvan MD [facility] CPT-44718 Level 3 Est. Patient 15:10:02 CDT Janak MCGILL [facility] CPT-86287 Level 3 Est. Patient 15:20:20 CDT Theo dennis MD [facility] CPT-54335 Level 2 Est. Patient 14:08:57 CDT Kalpesh goins MD [facility] CPT-89476 Level 3 Est. Patient 13:56:19 CDT Abdirahman Rios MD [facility] CPT-67123 Level 3 Est. Patient 13:59:37 CDT Abdirahman Rios MD [facility] CPT-95564 Level 2 Est. Patient 14:44:59 CDT Kalpesh goins MD [facility] CPT-61666 Level 3 Est. Patient 06:06:23 CDT Edilberto tiwari DO [facility] CPT-17728 Level 3 Est. Patient 15:23:54 CDT Abdirahman Rios MD [facility] CPT-75036 Level 3 Est. Patient 15:43:49 CDT Abdirahman Rios MD [facility] CPT-99163 Level 3 Est. Patient 12:46:47 [employer] WORK[employer] Abdirahman Rios MD [facility] CPT-08931 Level 3 Est. Patient 08:13:35 [employer] WORKER Abdirahman Rios MD [facility] CPT-05288 Level 2 Est. Patient 09:36:42 [employer] WORKER Abdirahman Rios MD [facility] CPT-44806 Level 3 Est. Patient 10:56:43 CDT Abdirahman Rios MD [facility] CPT-21493 Level 3 Est. Patient 18:24:52 CDT Abdirahman Rios MD [facility] CPT-38566 Level 3 Est. Patient 13:27:22 CDT Abdirahman Rios MD [facility] Procedures Code Procedure Name Date Entry Date Standard Desc ription CPT-88376 Postop F/U Visit 14:08:43 [employer] CPT-93497 Postop F/U Visit 15:18:16 [employer] CPT-94546 Postop F/U Visit 15:03:49 [employer] CPT-53403 Postop F/U Visit 14:45:23 [employer] CPT-94649 Postop F/U Visit 14:11:03 [employer] CPT-33564 Postop F/U Visit 18:21:21 [employer] CPT-05329 Postop F/U Visit 15:57:12 [employer] CPT-43965 Bladder Instillation 16:58:41 [employer] WORKER 6 CPT-98315 Fluzone Quadrivalent Intramuscular Suspe nsion 0.5 ML 15:20:56 [employer] CPT-14258 Immunization Single Admin 15:20:56 [employer] WORKER 2014 CPT-26916 Excis pilonidal cyst simple 08:51:34 CDT 20 22/04/20 CPT-27873 Venipuncture Draw Fee 14:27:29 CDT CPT-39008 Postop F/U Visit 15:27:43 CDT CPT-75095 Postop F/U Visit 14:40:59 CDT CPT-75138 Postop F/U Visit 15:02:46 CDT CPT-33794 Postop F/U Visit 11:29:00 [employer] CPT-J0696 Rocephin 1000 mg (Ceftriaxone) 17:22:33 [employer] CPT-82540 Postop F/U Visit 18:41:07 [employer] WORK[employer] CPT-51674 Postop F/U Visit 08:19:08 [employer] WORK[employer] CPT-63532 Immunization Single Admin 16:41:53 CDT 2013 CPT-81640 Fluzone Quadrivalent Intramuscular Suspe nsion 0.5 ML 16:41:53 CDT CPT-OV Office Visit 16:39:18 CDT CPT-OV Office Visit 16:16:36 CDT CPT-OV Office Visit 15:34:48 CDT CPT-21408 Postop F/U Visit 14:50:12 CDT CPT-30399 Postop F/U Visit 14:41:10 CDT CPT-77114 Venipuncture Draw Fee 11:38:04 [employer] CPT-01035 Postop F/U Visit 19:02:59 [employer] CPT-93131 Postop F/U Visit 12:04:54 [employer] CPT-07514 Administration single or combination vac cine inc oral 15:56:43 CDT CPT-73273 Influenza split virus > age 3 15:56:43 CDT CPT-08965 Hand comp min 3V 14:25:19 CDT CPT-70538 Postop F/U Visit 21:40:51 CDT CPT-15750 Postop F/U Visit 10:58:43 CDT CPT-53692 Administration single or combination vac cine inc oral 12:33:54 [employer] CPT-43883 Influenza Preservative Free split virus >age 3 12:33:54 [employer] WORK[employer] CPT-42232 Administration single or combination vac cine inc oral 09:30:51 CDT CPT-10430 Influenza split virus > age 3 09:30:51 CDT CPT-44138 Postop F/U Visit 15:14:53 CDT CPT-49730 Postop F/U Visit 13:50:14 CDT CPT-68146 Postop F/U Visit 13:34:52 CDT CPT-OV Office Visit 16:55:03 CDT CPT-48384 [place] of cervix w bx ECC 13:32:50 CDT 10/19 CPT-J1885 Toradol 60 mg (Ketorolac) 15:31:59 CDT 2011 CPT-J1885 Toradol 60 mg (Ketorolac) 15:23:54 CDT 2011 CPT-00899 Visit 11:34:37 [employer] CPT-58506 Visit 10:52:39 [employer] CPT-21629 Visit 10:12:02 [employer] WORK[employer] CPT-94212 Visit 11:22:43 [employer] CPT-12308 Visit 11:24:12 [employer] CPT-55615 Visit 10:47:05 [employer] WORK[employer] CPT-OV Office Visit 10:26:16 [employer] WORK[employer] CPT-OV Office Visit 15:34:31 [employer] CPT-46286 Visit 10:42:08 [employer] CPT-98560 Visit 10:52:45 [employer] CPT-000 Give Appropriate Flu Vaccine 16:56:41 CDT 2 CPT-03135 Administration single or combination vac cine inc oral 10:33:21 CDT CPT-54845 Influenza split virus > age 3 10:33:21 CDT CPT-98825 Visit 13:23:09 CDT CPT-48391 Visit 18:24:52 CDT CPT-93526 Sono OB comp > 14 weeks 12:07:49 CDT 04/07
--- OUTSIDE RECORDS SUMMARY | 2020-01-18 16:07 | XMS REPORT | Clinical Summary ---
Author Author Admin, Jeri Cabrera Ning Address Unknown Phone Unavailable Allergies, Adverse Reactions, Alerts Allergy Name Reaction Description Start Date Severity Status Pr ovider TORADOL Rash Severe Active Rajni Yokum TSANISLAV RN BACTRIM Critical Active Kalpesh Dong MD [...] Chronic pain syndrome 338.4 Active Rajni Alcazar [employer] TE[employer] Chronic pain syndrome AFTERCARE FOLLOW SURGERY SKIN&SUBCUT [...] Generic Name NDC Status Provider Patient Instruction [id number] 50-325-40 MG ORAL TABS 1 po TID PRN Headaches [id number] Active Abdirahman owen MD Active CHANTIX STARTING MONTH MARGARITA 0.5 MG X 11 & 1 MG X 42 TAB S 0.5mg daily for 3 days, then 0.5mg BID for 4 days, then 1mg BID VARENICL INE TARTRATE 20092435213 Active Abdirahman Rios MD Active AMOXICILLIN 500 MG CAPS 2 po BID x 10 days AMOX ICILLIN 42273606632 Active Abdirahman Rios MD Active PROMETHAZINE HCL 25 MG TABS 1 four times a day as needed for nausea/vomiting PROMETHAZINE HCL 22742873255 No Longer Active Abdirahman Rios MD Active LC-4 LIDOCAINE 4 % EXT CREA apply q 6 hours, prn 08/03 LIDOCAINE 86936583730 No Longer Active Kalpesh Dong MD Active PERCOCET 10-325 MG TABS 1 tablet every 8 hours as needed for antonia n OXYCODONE-ACETAMINOPHEN 99719023234 No Longer Active Kalpehs Dong MD Active HYDROCODONE-ACETAMINOPHEN 5-325 MG TABS 1 tab by mouth every 6 hours as needed for pain HYDROCODONE-ACETAMINOPHEN 34415555784 No Longer Active Kalpesh Dong MD Active PERCOCET 10-325 MG ORAL TABS 1 every 4 hous as needed OXYCODONE-ACETAMINOPHEN 12735927012 Active Hira Moser APRN Active GLYDO 2 % EXT GEL apply to painful areas as needed LIDOCAINE HCL 81041226731 Active Kalpesh Dong MD Active LC-4 LIDOCAINE 4 % EXT CREA apply to painful area every 12 h ours or as needed LIDOCAINE 45759031467 Active Kalpesh Dong MD Active AUGMENTIN 875-125 MG TAB 1 tab by mouth twice daily with food 20 23/05/16 AMOXICILLIN-POT CLAVULANATE 46494126586 No Longer Active Lizeth hi Yokum [employer] 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 FLUTICASONE PROPIONATE 93553336301 No Longer Ac tive Rajni Yokum [employer] TESTER Active PERCOCET 10-325 MG ORAL TABS take 1 tab by mouth q 4hours as needed for pain OXYCODONE-ACETAMINOPHEN 97139378965 No Longer Active Rajni Yokum [employer] TE[employer] Active PERCOCET 10-325 MG ORAL TABS one every 6 hours prn pain OXYCODONE-ACETAMINOPHEN 12509368671 No Longer Active Rajni Yokum [employer] Active IBUPROFEN 800 MG TABS 1 tab po tid, with food I BUPROFEN 32091610983 Active Hira Moser [employer] TE[employer] Active DICLOFENAC SODIUM 50 MG TBEC 1 tablet by mouth four times da tom PRN Pain DICLOFENAC SODIUM 28085568945 No Longer Active Rajni Yokum [employer] Active VIIBRYD 10 & 20 & 40 MG KIT 1 po qd as directed 07/24 VILAZODONE HCL 64603627106 No Longer Active Rajni Yokum [employer] Active ONDANSETRON 4 MG TBDP 1 q4h PRN nausea ONDANSET KELBY 53457836341 No Longer Active Rajni Yokum [employer] TE[employer] Active PERCOCET 10-325 MG TABS 1 tablet every 8 hours as needed for antonia n OXYCODONE-ACETAMINOPHEN 86082154263 No Longer Active Rajni Y okum [employer] TESTER Active HYDROCODONE-ACETAMINOPHEN 5-325 MG TABS 1 po TID PRN Pain 9 HYDROCODONE-ACETAMINOPHEN 57770606452 No Longer Active Abdirahman Rios MD Active [id number] 50-325-40 MG ORAL CAPS 1-2 po TID SD N Headache [id number] 85686871024 No Longer Act krishna Kalpesh Dong MD Active ALPRAZOLAM 0.5 MG TABS 1 po BID PRN Anxiety ALP RAZOLAM 09168954370 No Longer Active Kalpesh Dong MD Active TRAZODONE HCL 100 MG TAB 0.5 to 1 po qHS PRN Insomnia TRAZODONE HCL 13394614216 No Longer Active Kalpesh Dong MD Activ e HYDROCODONE-ACETAMINOPHEN 5-325 MG TABS 1 po q6hr PRN Pain 04/09 HYDROCODONE-ACETAMINOPHEN 92260476862 No Longer Active Kalpesh Dong MD Active CYMBALTA 30 MG CPEP 1 cap by mouth daily DULOXE CLEO HCL 92678063687 No Longer Active Abdirahman Rios MD Active IBUPROFEN 600 MG ORAL TABS 1 by mouth twice a day 2014 IBUPROFEN 40250487968 No Longer Active Abdirahman Rios MD Activ e PERCOCET 5-325 MG TAB 1 tab po q 6 hours, prn severe pain 1 OXYCODONE-ACETAMINOPHEN 01181916784 No Longer Active Abdirahman Rios MD Active SPRINTEC 28 0.25-35 MG-MCG TABS 1 pill by mouth daily for bi rth control NORGESTIMATE-ETH ESTRADIOL 08018057647 No Longer Acti ve Karenina Shanti [employer] TESTER Active CYCLOBENZAPRINE HCL 10 MG TABS 1 tablet by mouth three times daily as needed for muscle spasm/pain CYCLOBENZAPRINE HCL 58915818796 No Longer Active Matthewllina Shanti [employer] TESTER Active HYDROCODONE-ACETAMINOPHEN 5-325 MG TABS 1 po q6hr PRN Pain 03/09 HYDROCODONE-ACETAMINOPHEN 11832748861 No Longer Active Hira Peraza l [employer] TESTER Active AUGMENTIN 500-125 MG ORAL TABS 1 by mouth twice a day AMOXICILLIN-POT CLAVULANATE 76021732082 No Longer Active Hira Moser [employer] TESTER Active DICLOFENAC SODIUM 50 MG TBEC 1 tablet by mouth four times da tom PRN Pain DICLOFENAC SODIUM 57475769793 No Longer Active Karenin a Karmenl [employer] TESTER Active PROMETHAZINE HCL 25 MG TABS 1 four times a day as needed for nausea/vomiting PROMETHAZINE HCL 07993479132 No Longer Active Abdirahman Rios MD Active HYDROCODONE-ACETAMINOPHEN 5-325 MG TABS 1 tab by mouth every 6 hours as needed PRN Pain HYDROCODONE-ACETAMINOPHEN 40739422914 No Longer Active Abdirahman Rios MD Active GEMFIBROZIL 600 MG TABS 1 po BID GEMFIBROZIL 76993327 005 Active Abdirahman Rios MD Active PERCOCET 5-325 MG ORAL TABS 1 every 6 hours as needed OXYCODONE-ACETAMINOPHEN 79916752754 No Longer Active Abdirahman Rios MD Active PERCOCET 5-325 MG TAB 1 tab po q 6 -8 hours, prn for severe pain OXYCODONE-ACETAMINOPHEN 84325571782 No Longer Active Abdirahman Rios MD Active HYDROCODONE-ACETAMINOPHEN 5-325 MG TABS 1 po q6hr PRN pain 06/30 HYDROCODONE-ACETAMINOPHEN 57861734134 No Longer Active Hira Peraza l [employer] TESTER Active GLUCOPHAGE 500 MG ORAL TABS one by mouth 3 times a day METFORMIN HCL 98320940755 No Longer Active Hira Moser [employer] TESTER Ac tive PERCOCET 10-325 MG TABS 1 tab by mouth every 6 hours , use sparingly for severe pain OXYCODONE-ACETAMINOPHEN 94734598104 No Longer A ctive Abdirahman Rios MD Active EMLA 2.5-2.5 % EXT CREA apply to skin lesion q 6 hours, prn 2014 LIDOCAINE-PRILOCAINE 60495360822 No Longer Active Abdirahman Rios MD Active PERCOCET 10-325 MG ORAL TABS 1 every 4 hours as needed OXYCODONE-ACETAMINOPHEN 70230084876 No Longer Active Abdirahman Rios MD Active AUGMENTIN 875-125 MG TAB 1 tab by mouth twice daily with food 20 21/10/13 AMOXICILLIN-POT CLAVULANATE 04571662656 No Longer Active Ursula jasmina Frazell [employer] TESTER Active PROAIR HFA 108 (90 BASE) MCG/ACT AERS 2 puff q 4-6 hrs PRN 01/24 ALBUTEROL SULFATE 84793527250 No Longer Active Kalpesh Dong MD Active PREDNISONE 20 MG TAB 2 tabs daily for 3 days, 1 t ab daily for 3 days, 1/2 tab daily for 2 days PREDNISONE 61230479942 No Longer Active Abdirahman Rios MD Active KEFLEX 500 MG CAP 1 po qid CEPHALEXIN 641377215 20 No Longer Active Kalpesh Dong MD Active PERCOCET 5-325 MG TAB 1 every 6 hours as needed OXYCODONE-ACETAMINOPHEN 40683648926 No Longer Active Shola MCGILL Active LC-5 LIDOCAINE 5 % CREA apply 1 time daily to affected area 2013 LIDOCAINE (ANORECTAL) 08405753781 No Longer Active Hira muniz [employer] TESTER Active HYDROCODONE-ACETAMINOPHEN 10-325 MG TABS 1 by mouth ev chaka 8 hours as needed for pain HYDROCODONE-ACETAMINOPHEN 01574166164 No Longer Active Jillina Frazell [employer] TESTER Active LORATADINE 10 MG TABS 1 tablet by mouth daily L ORATADINE 07758970130 No Longer Active Jillina Frazell [employer] TESTER Active DIFLUCAN 150 MG TAB 1 qODay x 2 doses FLUCONAZO LE 60922533093 No Longer Active Jillina Frazell [employer] TESTER Active CYCLOBENZAPRINE HCL 10 MG TABS 1/2 - 1 tab PO tid PRN back p ain, muscle spasm CYCLOBENZAPRINE HCL 12663247635 No Longer Active Karen Moser APRN Active AUGMENTIN 875-125 MG TAB 1 tab by mouth twice daily with food 20 22/05/07 AMOXICILLIN-POT CLAVULANATE 29496998576 No Longer Active Loida Rios MD Active MOBIC 15 MG TABS 1 tab daily MELOXICAM 884499860 14 No Longer Active Abdirahman Rios MD Active PERCOCET 7.5-325 MG TABS 1 PO tid PRN pain OXYCODONE-ACETAMINOPHEN 05367486644 No Longer Active Abdirahman Rios MD Active LIDODERM 5 % PTCH One patch to painful area SD N. On for 12 hrs, off for 12 hrs. LIDOCAINE 32216608013 No Longer Active Abdirahman Rios MD Active PERCOCET 7.5-325 MG TABS 1 PO q 8 hrs PRN pain OXYCODONE-ACETAMINOPHEN 36326992483 No Longer Active Shola MCGILL Active HYDROCODONE-ACETAMINOPHEN 7.5-325 MG TABS 1 by mouth e very 6 hours as needed for pain HYDROCODONE-ACETAMINOPHEN 70213685892 No Longer Active Good Julian MD Active CLINDAMYCIN HCL 300 MG CAPS 1 po QID x 7 days CLINDAMYCIN HCL 47776549424 No Longer Active Abdirahman Rios MD Activ e BACTRIM DS 800-160 MG TABS 1 po BID x 7 days 5 SULFAMETHOXAZOLE-TRIMETHOPRIM 37643257976 No Longer Active Abdirahman Rios MD Active ENDOCET 10-325 MG TABS 1 q 6 hr prn OXYCODONE-ACETAMINOPHEN 22103167582 No Longer Active Abdirahman Rios MD Active IBUPROFEN 800 MG TABS 1 tid prn IBUPROFEN 976545 05333 No Longer Active Abdirahman Rios MD Active BACTRIM DS 800-160 MG TABS by mouth twice a day 11/05 SULFAMETHOXAZOLE-TRIMETHOPRIM 73308632269 No Longer Active Good Julian MD Active HYDROCODONE-ACETAMINOPHEN 7.5-325 MG TABS 1 four times a day as needed for pain HYDROCODONE-ACETAMINOPHEN 17560250377 No Longer Activ e Good Julian MD Active KEFLEX 500 MG CAP 1 tab po tid CEPHALEXIN 596944 68891 No Longer Active Hira Moser APRN Active IBUPROFEN 800 MG TAB 1 pill three times daily as needed for pain IBUPROFEN 18851397819 No Longer Active Kalpesh Dong MD Active PROMETHAZINE-CODEINE 6.25-10 MG/5ML SYRP 1 tsp every 6 hrs prn c ough PROMETHAZINE-CODEINE 39491534185 No Longer Active Kalpesh Carr Active HYDROCODONE-ACETAMINOPHEN 5-325 MG TABS 1 tab by mouth every 6 hours as needed HYDROCODONE-ACETAMINOPHEN 63766189369 No Longer Activ e Shola MCGILL Active CEPHALEXIN 500 MG CAPS 1 PO bid x 7 days CEPHAL EXIN 91610697112 No Longer Active Shola MCGILL Active BACTRIM DS 800-160 MG TAB 1 tab by mouth twice daily 2 TRIMETHOPRIM-SULFAMETHOXAZOLE 57302306384 No Longer Active Kalpesh Dong MD Active HYDROCODONE-ACETAMINOPHEN 5-325 MG TABS 1 PO tid PRN pain 5 HYDROCODONE-ACETAMINOPHEN 92437204992 No Longer Active Abhinav Galvan MD Active IMPLANON 68 MG IMPL IMPLANTED IN LEFT ARM ETONO GESTREL 27650810619 No Longer Active Hira Moser APRN Active AMOXICILLIN 500 MG TABS 2 tabs PO bid x 10 d AM OXICILLIN 14427191679 No Longer Active Kalpesh Dong MD Active LEVAQUIN 500 MG TABS 1 PO q day x 7 days LEVOFL OXACIN 97234189221 No Longer Active Shola MCGILL Active AMITRIPTYLINE HCL 25 MG TAB 1 tab by mouth daily 60 minutes before bedtime AMITRIPTYLINE HCL 29897096977 No Longer Active Shola MCGILL Active LORTAB 5 5-500 MG TABS 1/2 to 1 tablet by mouth go ry 6 hours as needed for pain HYDROCODONE-ACETAMINOPHEN 42810799626 No Longer Active Shola MCGILL Active CEPHALEXIN 500 MG TABS Take one by mouth four times daily, morning, noon, early evening and bedtime. CEPHALEXIN 52072878751 No Long er Active Hira Moser APRN Active TYLENOL/CODEINE #3 300-30 MG TAB 1-2 po q6hr PRN Pain ACETAMINOPHEN-CODEINE 63517866656 No Longer Active Edilberto Marino DO Active PRISTIQ 50 MG [id number] 1 po qd DESVENLAFAXI NE SUCCINATE 56315686728 No Longer Active Edilberto Marino DO Active PENICILLIN V POTASSIUM 500 MG TAB 1 four times a day 2 PENICILLIN V POTASSIUM 67254661491 No Longer Active Edilberto Marino DO Active DOXYCYCLINE HYCLATE 100 MG CAPS Take one (1) tablet by mouth twice a day DOXYCYCLINE HYCLATE 43027393354 No Longer Active Ronnie Galvan MD Active HYDROCODONE-ACETAMINOPHEN 5-325 MG TABS 1 po q 6hr PRN Pain 2011 HYDROCODONE-ACETAMINOPHEN 62765711597 No Longer Active Patri joan Perez RN Active BACTRIM DS 800-160 MG TAB 1 tab by mouth twice daily 2 TRIMETHOPRIM-SULFAMETHOXAZOLE 02166948042 No Longer Active Kalpesh Dong MD Active LORTAB 5 5-500 MG TABS 1/2 to 1 tablet by mouth go ry 4 hours as needed for pain HYDROCODONE-ACETAMINOPHEN 70219785750 No Longer Active Kalpesh Dong MD Active GENERESS FE 0.8-25 MG-MCG CHEW Take one by mouth daily NORETHIN-ETH ESTRADIOL-FE 73673678312 No Longer Active Kalpesh Dong MD Active HYDROCODONE-ACETAMINOPHEN 7.5-500 MG TABS 1-2 every 4 hours as needed HYDROCODONE-ACETAMINOPHEN 47529175105 No Longer Activ e Kalpesh Dong MD Active FERROUS SULFATE 325 (65 FE) MG TABS 1 tablet by mouth twice yung y FERROUS SULFATE 37971940560 No Longer Active Kalpesh Dong MD Active IBUPROFEN 600 MG TAB 1 po q6-8hr PRN IBUPROFEN 87848099536 No Longer Active Kalpesh Dong MD Active SPIRONOLACTONE 25 MG TAB 1 tablet by mouth daily 01/22 SPIRONOLACTONE 16082991929 No Longer Active Kalpesh Dong MD Acti ve HYDROCODONE-ACETAMINOPHEN 7.5-325 MG TABS 1 po QID PRN Pain 2011 HYDROCODONE-ACETAMINOPHEN 17501126093 No Longer Active Kalpesh Dong MD Active CLINDAMYCIN HCL 300 MG CAPS 1 po q6hr x 7 days CLINDAMYCIN HCL 50480149466 No Longer Active Edilberto Marino DO Active PREDNISONE 20 MG TAB 2 tabs daily for 4 days, 1 t ab daily for 4 days, 1/2 tab daily for 4 days PREDNISONE 50191157467 No Longer Active Edilberto Marino DO Active PERCOCET 5-325 MG TABS 1 tablet by mouth every 6 hours as ne eded for pain OXYCODONE-ACETAMINOPHEN 17377291972 No Longer Active Abdirahman Rios MD Active VITAMINS TABS Take one by mouth daily MV & MIN W/FE-FA TABS 25424293228 No Longer Active Abdirahman Rios MD Active LUIS 3-0.02 MG TABS 1 tablet by mouth daily as directed DROSPIRENONE-ETHINYL ESTRADIOL 63124433832 No Longer Active Abdirahman Rios MD Active LORATADINE 10 MG TABS 1 tablet by mouth daily L ORATADINE 86070285056 No Longer Active Kalpesh Dong MD Active HYDROCODONE-ACETAMINOPHEN 5-325 MG TABS 1 po q 6hr PRN Pain 2010 HYDROCODONE-ACETAMINOPHEN 29045917682 No Longer Active Edilberto Marino DO Active BACTRIM DS 800-160 MG TAB 1 tab by mouth twice daily 2 TRIMETHOPRIM-SULFAMETHOXAZOLE 18709746654 No Longer Active Abdirahman Rios MD Active 28-0.8 MG TABS Take one by mouth daily 09/20 VIT-FE FUMARATE-FA 56024680106 No Longer Active Abdirahman Rios MD Active CIPRO 500 MG TAB 1 tablet by mouth twice daily CIPROFLOXACIN HCL 31182176541 No Longer Active Abdirahman Rios MD Active BENADRYL 25 MG CAP 1 po q8hr PRN Congestion DIPHENHYDRAMINE HCL 72026461422 No Longer Active Abdirahman Rios MD Active ZOLOFT 50 MG TAB 1 po qd SERTRALINE HCL 963164 81470 No Longer Active Abdirahman Rios MD Active AMOXICILLIN 875 MG TABS 1 tab by mouth twice daily 201 08/09/13 AMOXICILLIN 29133812496 No Longer Active Abdirahman Rios MD Activ e AMOXICILLIN 875 MG TABS 1 tab by mouth twice daily 201 07/19/27 AMOXICILLIN 25568648538 No Longer Active Abdirahman Rios MD Activ e BACTRIM DS 800-160 MG TAB 2 tab by mouth twice daily 2 TRIMETHOPRIM-SULFAMETHOXAZOLE 00880201089 No Longer Active Abdirahman Rios MD Active KEFLEX 500 MG CAP 1 po tid x 10 days CEPHALEXIN 64338205536 No Longer Active Abdirahman Rios MD Active AMOXICILLIN 875 MG TABS 1 tab by mouth twice daily 201 07/18/07 AMOXICILLIN 22346909380 No Longer Active Abdirahman Rios MD Activ e BACTRIM DS 800-160 MG TAB 2 tab by mouth twice daily 2 BACTRIM DS 800-160 MG TAB 303492 TRIMETHOPRIM-SULFAMETHOXAZOLE Inactive ZOLOFT 50 MG TAB 1 po qd ZOLOFT 50 MG TAB 3129 41 SERTRALINE HCL Inactive BENADRYL 25 MG CAP 1 po q8hr PRN Congestion BENADRYL 25 MG CAP 6234830 DIPHENHYDRAMINE HCL Inactive 28-0.8 MG TABS Take one by mouth daily 09/20 28-0.8 MG TABS VIT-FE FUMARATE-FA Inactive HYDROCODONE-ACETAMINOPHEN 5-325 MG TABS 1 po q 6hr PRN Pain 2010 HYDROCODONE-ACETAMINOPHEN 5-325 MG TABS 313069 HYDROCODONE-ACETAMINOPHEN Inactive LORATADINE 10 MG TABS 1 tablet by mouth daily LORATADINE 10 MG TABS 302536 LORATADINE Inactive LUIS 3-0.02 MG TABS 1 tablet by mouth daily as directed LUIS 3-0.02 MG TABS 201102 DROSPIRENONE-ETHINYL ESTRADIOL Inactive VITAMINS TABS Take one by mouth daily VITAMINS TABS MV & MIN W/FE-FA TABS Inactive PERCOCET 5-325 MG TABS 1 tablet by mouth every 6 hours as ne eded for pain PERCOCET 5-325 MG TABS 7256580 OXYCODONE-ACETAMIN OPHEN Inactive PREDNISONE 20 MG TAB 2 tabs daily for 4 days, 1 t ab daily for 4 days, 1/2 tab daily for 4 days PREDNISONE 20 MG TAB 356696 PREDNISON E Inactive CLINDAMYCIN HCL 300 MG CAPS 1 po q6hr x 7 days CLINDAMYCIN HCL 300 MG CAPS 416409 CLINDAMYCIN HCL Inactive HYDROCODONE-ACETAMINOPHEN 7.5-325 MG TABS 1 po QID PRN Pain 2011 HYDROCODONE-ACETAMINOPHEN 7.5-325 MG TABS 449403 HYDROCODONE-ACETAMINOPHEN Inactive SPIRONOLACTONE 25 MG TAB 1 tablet by mouth daily 01/22 SPIRONOLACTONE 25 MG TAB 202309 SPIRONOLACTONE Inactive IBUPROFEN 600 MG TAB 1 po q6-8hr PRN IBUPROFEN 600 MG TAB 479159 IBUPROFEN Inactive FERROUS SULFATE 325 (65 FE) MG TABS 1 tablet by mouth twice yung y FERROUS SULFATE 325 (65 FE) MG TABS 087783 FERROUS SULF ATE Inactive HYDROCODONE-ACETAMINOPHEN 7.5-500 MG TABS 1-2 every 4 hours as needed HYDROCODONE-ACETAMINOPHEN 7.5-500 MG TABS HYDROCODONE-ACETAMINOPHEN Inactive GENERESS FE 0.8-25 MG-MCG CHEW Take one by mouth daily GENERESS FE 0.8-25 MG-MCG CHEW [id number] NORETHIN-ETH ESTRADIOL-FE Inactive LORTAB 5 5-500 MG TABS 1/2 to 1 tablet by mouth go ry 4 hours as needed for pain LORTAB 5 5-500 MG TABS HYDROCODONE-A CETAMINOPHEN Inactive BACTRIM DS 800-160 MG TAB 1 tab by mouth twice daily 2 BACTRIM DS 800-160 MG TAB 168705 TRIMETHOPRIM-SULFAMETHOXAZOLE Inac tive HYDROCODONE-ACETAMINOPHEN 5-325 MG TABS 1 po q 6hr PRN Pain 2011 HYDROCODONE-ACETAMINOPHEN 5-325 MG TABS 555109 HYDROCODONE-ACETAMINOPHEN Inactive DOXYCYCLINE HYCLATE 100 MG CAPS Take one (1) tablet by mouth twice a day DOXYCYCLINE HYCLATE 100 MG CAPS 5061573 DOXYCYCLINE HYCLATE Inactive PENICILLIN V POTASSIUM 500 MG TAB 1 four times a day 2 PENICILLIN V POTASSIUM 500 MG TAB 150193 PENICILLIN V POTASSIUM Siri ctive PRISTIQ 50 MG [id number] 1 po qd PRISTIQ 50 MG [id number] DESVENLAFAXINE SUCCINATE Inactive TYLENOL/CODEINE #3 300-30 MG TAB 1-2 po q6hr PRN Pain TYLENOL/CODEINE #3 300-30 MG TAB 808328 ACETAMINOPHEN-CODEINE Inact krishna CEPHALEXIN 500 MG TABS Take one by mouth four times daily, morning, noon, early evening and bedtime. CEPHALEXIN 500 MG TABS 834153 CEPHALEXIN Inactive LORTAB 5 5-500 MG TABS 1/2 to 1 tablet by mouth go ry 6 hours as needed for pain LORTAB 5 5-500 MG TABS HYDROCODONE-A CETAMINOPHEN Inactive AMITRIPTYLINE HCL 25 MG TAB 1 tab by mouth daily 60 minutes before bedtime AMITRIPTYLINE HCL 25 MG TAB 534312 AMITRIPTYLINE HCL Inactive AMOXICILLIN 500 MG TABS 2 tabs PO bid x 10 d 7 AMOXICILLIN 500 MG TABS 897024 AMOXICILLIN Inactive IMPLANON 68 MG IMPL IMPLANTED IN LEFT ARM IMPLANON 68 MG IMPL ETONOGESTREL Inactive HYDROCODONE-ACETAMINOPHEN 5-325 MG TABS 1 PO tid PRN pain 5 HYDROCODONE-ACETAMINOPHEN 5-325 MG TABS 621130 HYDROCODONE-ACETAMIN OPHEN Inactive BACTRIM DS 800-160 MG TAB 1 tab by mouth twice daily 2 BACTRIM DS 800-160 MG TAB 994713 TRIMETHOPRIM-SULFAMETHOXAZOLE Inac tive CEPHALEXIN 500 MG CAPS 1 PO bid x 7 days CEPHALEXIN 500 MG CAPS 985959 CEPHALEXIN Inactive HYDROCODONE-ACETAMINOPHEN 5-325 MG TABS 1 tab by mouth every 6 hours as needed HYDROCODONE-ACETAMINOPHEN 5-325 MG TABS 127780 HYDROCODONE-ACETAMINOPHEN Inactive PROMETHAZINE-CODEINE 6.25-10 MG/5ML SYRP 1 tsp every 6 hrs prn c ough PROMETHAZINE-CODEINE 6.25-10 MG/5ML SYRP 582602 PROMETH AZINE-CODEINE Inactive IBUPROFEN 800 MG TAB 1 pill three times daily as needed for pain IBUPROFEN 800 MG TAB IBUPROFEN Inactive KEFLEX 500 MG CAP 1 tab po tid KEFLEX 500 MG CAP 193495 CEPHALEXIN Inactive HYDROCODONE-ACETAMINOPHEN 7.5-325 MG TABS 1 four times a day as needed for pain HYDROCODONE-ACETAMINOPHEN 7.5-325 MG TABS 803958 HYDROCODONE-ACETAMINOPHEN Inactive BACTRIM DS 800-160 MG TABS by mouth twice a day 11/05 BACTRIM DS 800-160 MG TABS 831257 SULFAMETHOXAZOLE-TRIMETHOPRIM Inactive IBUPROFEN 800 MG TABS 1 tid prn IBUPROFEN 800 MG TABS 851499 IBUPROFEN Inactive ENDOCET 10-325 MG TABS 1 q 6 hr prn ENDOC ET 10-325 MG TABS 3997209 OXYCODONE-ACETAMINOPHEN Inactive HYDROCODONE-ACETAMINOPHEN 7.5-325 MG TABS 1 by mouth e very 6 hours as needed for pain HYDROCODONE-ACETAMINOPHEN 7.5-325 MG TABS 465021 HYDROCODONE-ACETAMINOPHEN Inactive PERCOCET 7.5-325 MG TABS 1 PO q 8 hrs PRN pain PERCOCET 7.5-325 MG TABS 8320167 OXYCODONE-ACETAMINOPHEN Inactive LIDODERM 5 % PTCH One patch to painful area SD N. On for 12 hrs, off for 12 hrs. LIDODERM 5 % PTCH 3362074 LIDOCAINE Inactiv e PERCOCET 7.5-325 MG TABS 1 PO tid PRN pain PERCOCET 7.5- 325 MG TABS 2509467 OXYCODONE-ACETAMINOPHEN Inactive MOBIC 15 MG TABS 1 tab daily MOBIC 15 MG TABS 15 2695 MELOXICAM Inactive CYCLOBENZAPRINE HCL 10 MG TABS 1/2 - 1 tab PO tid PRN back p ain, muscle spasm CYCLOBENZAPRINE HCL 10 MG TABS 028693 CYCLOBENZA JOSEPH HCL Inactive LORATADINE 10 MG TABS 1 tablet by mouth daily LORATADINE 10 MG TABS 297411 LORATADINE Inactive HYDROCODONE-ACETAMINOPHEN 10-325 MG TABS 1 by mouth ev chaka 8 hours as needed for pain HYDROCODONE-ACETAMINOPHEN 10-325 MG TABS 870292 HYDROCODONE-ACETAMINOPHEN Inactive LC-5 LIDOCAINE 5 % CREA apply 1 time daily to affected area 2013 LC-5 LIDOCAINE 5 % CREA 6123427 LIDOCAINE (ANORECTAL) In active PERCOCET 5-325 MG TAB 1 every 6 hours as needed PERCOCET 5-325 MG TAB 9036253 OXYCODONE-ACETAMINOPHEN Inactive KEFLEX 500 MG CAP 1 po qid KEFLEX 500 MG CAP 30 9114 CEPHALEXIN Inactive PROAIR HFA 108 (90 BASE) MCG/ACT AERS 2 puff q 4-6 hrs PRN 01/24 PROAIR HFA 108 (90 BASE) MCG/ACT AERS ALBUTEROL SULFATE Inactive PERCOCET 10-325 MG ORAL TABS 1 every 4 hours as needed PERCOCET 10-325 MG ORAL TABS 6890014 OXYCODONE-ACETAMINOPHEN Inactiv e EMLA 2.5-2.5 % EXT CREA apply to skin lesion q 6 hours, prn 2014 EMLA 2.5-2.5 % EXT CREA 185672 LIDOCAINE-PRILOCAINE Siri ctive PERCOCET 10-325 MG TABS 1 tab by mouth every 6 hours , use sparingly for severe pain PERCOCET 10-325 MG TABS 8248745 OXYCODONE-ACETAMINOPHEN Inactive GLUCOPHAGE 500 MG ORAL TABS one by mouth 3 times a day GLUCOPHAGE 500 MG ORAL TABS 032119 METFORMIN HCL Inactive HYDROCODONE-ACETAMINOPHEN 5-325 MG TABS 1 po q6hr PRN pain 06/30 HYDROCODONE-ACETAMINOPHEN 5-325 MG TABS 348372 HYDROCOD ONE-ACETAMINOPHEN Inactive PERCOCET 5-325 MG TAB 1 tab po q 6 -8 hours, prn for severe pain PERCOCET 5-325 MG TAB [id number] OXYCODONE-ACETAMINOPHEN In active PERCOCET 5-325 MG ORAL TABS 1 every 6 hours as needed PERCOCET 5-325 MG ORAL TABS [id number] OXYCODONE-ACETAMINOPHEN Inactive DICLOFENAC SODIUM 50 MG TBEC 1 tablet by mouth four times da tom PRN Pain DICLOFENAC SODIUM 50 MG TBEC [id number] DICLOFENAC S ODIUM Inactive AUGMENTIN 500-125 MG ORAL TABS 1 by mouth twice a day AUGMENTIN 500-125 MG ORAL TABS [id number] AMOXICILLIN-POT CLAVULANATE I nactive HYDROCODONE-ACETAMINOPHEN 5-325 MG TABS 1 po q6hr PRN Pain 03/09 HYDROCODONE-ACETAMINOPHEN 5-325 MG TABS [id number] HYDROCOD ONE-ACETAMINOPHEN Inactive CYCLOBENZAPRINE HCL 10 MG TABS 1 tablet by mouth three times daily as needed for muscle spasm/pain CYCLOBENZAPRINE HCL 10 MG TABS [id number] CYCLOBENZAPRINE HCL Inactive SPRINTEC 28 0.25-35 MG-MCG TABS 1 pill by mouth daily for bi rth control SPRINTEC 28 0.25-35 MG-MCG TABS [id number] NORGESTIMATE-ETH ESTRADIOL Inactive PERCOCET 5-325 MG TAB 1 tab po q 6 hours, prn severe pain PERCOCET 5-325 MG TAB [id number] OXYCODONE-ACETAMINOPHEN Inactive IBUPROFEN 600 MG ORAL TABS 1 by mouth twice a day 2014 IBUPROFEN 600 MG ORAL TABS [id number] IBUPROFEN Inactive CYMBALTA 30 MG CPEP 1 cap by mouth daily CYMBALTA 30 MG CPEP [id number] DULOXETINE HCL Inactive HYDROCODONE-ACETAMINOPHEN 5-325 MG TABS 1 po q6hr PRN Pain 04/09 HYDROCODONE-ACETAMINOPHEN 5-325 MG TABS [id number] HYDROCOD ONE-ACETAMINOPHEN Inactive TRAZODONE HCL 100 MG TAB 0.5 to 1 po qHS PRN Insomnia TRAZODONE HCL 100 MG TAB [id number] TRAZODONE HCL Inactive ALPRAZOLAM 0.5 MG TABS 1 po BID PRN Anxiety ALPRAZOLAM 0.5 MG TABS [id number] ALPRAZOLAM Inactive [id number] 50-325-40 MG ORAL CAPS 1-2 po TID SD N Headache [id number] 50-325-40 MG ORAL CAPS 2 [id number] Inactive HYDROCODONE-ACETAMINOPHEN 5-325 MG TABS 1 po TID PRN Pain 9 HYDROCODONE-ACETAMINOPHEN 5-325 MG TABS [id number] HYDROCODONE-ACETAMIN OPHEN Inactive PERCOCET 10-325 MG TABS 1 tablet every 8 hours as needed for antonia n PERCOCET 10-325 MG TABS [id number] OXYCODONE-ACETAMINOPHEN Inactive ONDANSETRON 4 MG TBDP 1 q4h PRN nausea ON DANSETRON 4 MG TBDP [id number] ONDANSETRON Inactive VIIBRYD 10 & 20 & 40 MG KIT 1 po qd as directed 07/24 VIIBRYD 10 & 20 & 40 MG KIT VILAZODONE HCL Inactive DICLOFENAC SODIUM 50 MG TBEC 1 tablet by mouth four times da tom PRN Pain DICLOFENAC SODIUM 50 MG TBEC 397907 DICLOFENAC S ODIUM Inactive PERCOCET 10-325 MG ORAL TABS one every 6 hours prn pain PERCOCET 10-325 MG ORAL TABS [id number] OXYCODONE-ACETAMINOPHEN Inactiv e PERCOCET 10-325 MG ORAL TABS take 1 tab by mouth q 4hours as needed for pain PERCOCET 10-325 MG ORAL TABS [id number] OXYCODONE-ACETAMINOPHEN Inactive FLONASE ALLERGY RELIEF 50 MCG/ACT NASAL SUSP One spray in each nostril twice a day. FLONASE ALLERGY RELIEF 50 MCG/ACT NASAL S RETIREMENT 562512 FLUTICASONE PROPIONATE Inactive AUGMENTIN 875-125 MG TAB 1 tab by mouth twice daily with food 20 23/05/16 AUGMENTIN 875-125 MG TAB [id number] AMOXICILLIN-POT [place] Inactive HYDROCODONE-ACETAMINOPHEN 5-325 MG TABS 1 tab by mouth every 6 hours as needed for pain HYDROCODONE-ACETAMINOPHEN 5-325 MG TABS 8 13934 HYDROCODONE-ACETAMINOPHEN Inactive PERCOCET 10-325 MG TABS 1 tablet every 8 hours as needed for antonia n PERCOCET 10-325 MG TABS [id number] OXYCODONE-ACETAMINOPHEN Inactive LC-4 LIDOCAINE 4 % EXT CREA apply q 6 hours, prn 08/03 LC-4 LIDOCAINE 4 % EXT CREA [id number] LIDOCAINE Inactive PROMETHAZINE HCL 25 MG TABS 1 four times a day as needed for nausea/vomiting PROMETHAZINE HCL 25 MG TABS 058858 PROMETHAZINE HCL Inactive AMOXICILLIN 875 MG TABS 1 tab by mouth twice daily 201 07/18/07 AMOXICILLIN 875 MG TABS 812718 AMOXICILLIN Inactive KEFLEX 500 MG CAP 1 po tid x 10 days KEFLEX 500 MG CAP 683711 CEPHALEXIN Inactive AMOXICILLIN 875 MG TABS 1 tab by mouth twice daily 201 07/19/27 AMOXICILLIN 875 MG TABS 729193 AMOXICILLIN Inactive AMOXICILLIN 875 MG TABS 1 tab by mouth twice daily 201 08/09/13 AMOXICILLIN 875 MG TABS 363525 AMOXICILLIN Inactive CIPRO 500 MG TAB 1 tablet by mouth twice daily CIPRO 500 MG TAB 072666 CIPROFLOXACIN HCL Inactive BACTRIM DS 800-160 MG TAB 1 tab by mouth twice daily 2 BACTRIM DS 800-160 MG TAB 284010 TRIMETHOPRIM-SULFAMETHOXAZOLE Inac tive LEVAQUIN 500 MG TABS 1 PO q day x 7 days LEVAQUIN 500 MG TABS 247895 LEVOFLOXACIN Inactive CLINDAMYCIN HCL 300 MG CAPS 1 po QID x 7 days CLINDAMYCIN HCL 300 MG CAPS 814859 CLINDAMYCIN HCL Inactive AUGMENTIN 875-125 MG TAB 1 tab by mouth twice daily with food 20 22/05/07 AUGMENTIN 875-125 MG TAB 183154 AMOXICILLIN-POT [place] Inactive DIFLUCAN 150 MG TAB 1 qODay x 2 doses DIFLUCAN 150 MG TAB 329369 FLUCONAZOLE Inactive PREDNISONE 20 MG TAB 2 tabs daily for 3 days, 1 t ab daily for 3 days, 1/2 tab daily for 2 days PREDNISONE 20 MG TAB 570348 PREDNISON E Inactive AUGMENTIN 875-125 MG TAB 1 tab by mouth twice daily with food 21/10/13 AUGMENTIN 875-125 MG TAB 455234 AMOXICILLIN-POT [place] Inactive HYDROCODONE-ACETAMINOPHEN 5-325 MG TABS 1 tab by mouth every 6 hours as needed PRN Pain HYDROCODONE-ACETAMINOPHEN 5-325 MG TABS 8 36865 HYDROCODONE-ACETAMINOPHEN Inactive PROMETHAZINE HCL 25 MG TABS 1 four times a day as needed for nausea/vomiting PROMETHAZINE HCL 25 MG TABS 777669 PROMETHAZINE HCL Inactive Advance Directives Directive Description Start Date PERMISSION TO SHARE Immunizations Vaccine Administration Date Value Standard Alf cription Seasonal influenza vaccine, injectable, containing preservative, for > 3 years old (Afluria, FluLaval, Fluzone, Fluvirin, Fluarix, Agriflu(>= 18 yo)) Fluzone (>3 yrs.) [[id number]] Influenza, seasonal, inject able Seasonal influenza vaccine, injectable, preservative free, for > 3 years old (Afluria, FluLaval, Fluzone, Fluvirin, Fluarix, Agriflu(>= 18 yo)) Fluzone preservative free (>3 yrs.) [[id number]] Influenza, seasonal, injectable, preservative free Seasonal influenza vaccine, injectable, containing preservative, for > 3 years old (Afluria, FluLaval, Fluzone, Fluvirin, Fluarix, Agriflu(>= 18 yo)) Fluzone (>3 yrs.) [[id number]] Influenza, seasonal, inject able Seasonal influenza vaccine, injectable, containing preservative, for > 3 years old (Afluria, FluLaval, Fluzone, Fluvirin, Fluarix, Agriflu(>= 18 yo)) Fluzone (>3 yrs.) [[id number]] Influenza, seasonal, inject able dT (Diphtheria and [...] Panel - Chemistry sodium, serum 142 mmol/L 393-286 2768/05/12 potassium, serum 4.8 mmol/L 3.5-5.2 chloride, serum [...] ... - Chemistry sodium, serum 137 mmol/L 831-911 2500/02/24 carbon dioxide, venous blood 26.3 mmol/L 21.0-32 [...] Panel - Chemistry cholesterol, serum 181 mg/dL 343-165 9311/09/01 triglyceride, serum, fasting 341 mg/dL 30-200 HDL cholesterol, serum 22 mg/dL 32-96 LDL cholesterol, serum 91 mg/dL 0-130 cholesterol, serum 165 mg/dL 323-900 4554/05/12 triglyceride, serum, fasting 524 mg/dL 30-200 HDL [...] negative Encounters Code Encounter Date Provider Facility CPT-81417 Level 4 Est. Patient 16:38:26 INSTANTIZER OPERATOR Abdirahman Rios MD [facility] CPT-05879 Level 3 Est. Patient 05:31:41 INSTANTIZER OPERATOR Kalpesh goins MD [facility] CPT-83013 Level 3 Est. Patient 11:22:02 INSTANTIZER OPERATOR Hira muniz [facility] CPT-82551 Level 3 Est. Patient 21:00:18 INSTANTIZER OPERATOR Rajni danielson [facility] CPT-16602 Level 3 Est. Patient 14:15:00 INSTANTIZER OPERATOR Kalpesh gonis MD [facility] CPT-33977 Level 2 Est. Patient 19:57:52 INSTANTIZER OPERATOR Rajni danielson [facility] CPT-75700 Level 3 Est. Patient 16:58:40 INSTANTIZER OPERATOR Bj funes MD [facility] CPT-84121 Level 3 Est. Patient 08:51:33 CDT Kalpesh goins MD [facility] CPT-07979 Level 4 Est. Patient 14:14:53 CDT Abdirahman Rios MD [facility] CPT-40766 Level 3 Est. Patient 15:47:40 CDT Kalpesh goins MD [facility] CPT-79121 Level 3 Est. Patient 10:57:26 CDT Abdirahman Rios MD [facility]-87793 Level 3 Est. Patient 14:29:53 CDT Abhinav Galvan MD [facility] CPT-44690 Level 2 Est. Patient 16:33:01 CDT Kalpesh goins MD [facility] CPT-49510 Level 4 Est. Patient 16:44:56 CDT Abdirahman Rios MD [facility] CPT-98286 Level 2 Est. Patient 07:49:32 CDT Kalpesh goins MD [facility] CPT-66020 Level 3 New Patient 15:47:11 INSTANTIZER OPERATOR Bj huber MD [facility]-23516 Level 4 Est. Patient 14:37:38 INSTANTIZER OPERATOR Abdirahman Rios MD [facility] CPT-73275 Level 2 Est. Patient 13:32:17 INSTANTIZER OPERATOR Kalpesh goins MD [facility] CPT-75847 Level 3 Est. Patient 17:32:57 INSTANTIZER OPERATOR Edilberto tiwari [facility] CPT-81518 Level 3 Est. Patient 17:22:33 INSTANTIZER OPERATOR Edilberto tiwari [facility] CPT-56285 Level 2 Est. Patient 16:57:09 INSTANTIZER OPERATOR Kalpesh goins MD [facility]-52508 Level 3 Est. Patient 14:03:08 INSTANTIZER OPERATOR Abdirahman Rios MD [facility] CPT-98191 Level 3 Est. Patient 18:12:34 CDT Shola Wright [facility] CPT-58929 Level 3 Est. Patient 19:34:46 CDT Shola Wright [facility] CPT-86411 Level 3 Est. Patient 14:19:37 CDT Abdirahman Rios MD [facility] CPT-96015 Level 3 Est. Patient 14:11:58 CDT Kalpesh goins MD [facility]-20677 Level 3 Est. Patient 16:50:00 CDT Michelle BRADFORDP [facility] CPT-77263 Level 3 Est. Patient 17:11:32 INSTANTIZER OPERATOR Brandie bates MD PhD [facility]-16159 Level 3 Est. Patient 16:31:47 INSTANTIZER OPERATOR Shola Wright [facility] CPT-57713 Level 3 Est. Patient 17:51:10 INSTANTIZER OPERATOR Abhinav Galvan MD [facility]-77216 Level 4 Est. Patient 12:54:56 INSTANTIZER OPERATOR Kalpesh goins MD [facility]-75415 Level 4 Est. Patient 12:53:56 INSTANTIZER OPERATOR Kalpesh goins MD [facility]-20711 Level 3 Est. Patient 17:56:58 CDT Shola Wright [facility] CPT-53815 Level 3 Est. Patient 14:26:20 CDT Janak butcher [facility] CPT-55999 Level 3 Est. Patient 09:38:41 CDT Shola Wright [facility] CPT-28040 Level 3 Est. Patient 14:45:26 CDT Edilberto tiwari [facility] CPT-15340 Level 3 Est. Patient 10:51:33 CDT [facility] Level 3 Est. Patient 11:57:55 INSTANTIZER OPERATOR Shola Wright [facility] CPT-58975 Level 3 Est. Patient 09:53:33 INSTANTIZER OPERATOR Edilberto tiwari [facility] CPT-73644 Level 3 Est. Patient 14:42:54 INSTANTIZER OPERATOR Abhinav Galvan MD [facility] CPT-65139 Level 3 Est. Patient 15:10:02 CDT Janak [facility]-01684 Level 3 Est. Patient 15:20:20 CDT Theo dennis MD [facility] CPT-95356 Level 2 Est. Patient 14:08:57 CDT Kalpesh goins MD [facility] CPT-43920 Level 3 Est. Patient 13:56:19 CDT Abdirahman Rios MD [facility] CPT-24084 Level 3 Est. Patient 13:59:37 CDT Abdirahman Rios MD [facility] CPT-92441 Level 2 Est. Patient 14:44:59 CDT Kalpesh goins MD [facility] CPT-13466 Level 3 Est. Patient 06:06:23 CDT Edilberto tiwari DO [facility] CPT-63145 Level 3 Est. Patient 15:23:54 CDT Abdirahman Rios MD [facility] CPT-63085 Level 3 Est. Patient 15:43:49 CDT Abdirahman Rios MD [facility] CPT-53491 Level 3 Est. Patient 12:46:47 INSTANTIZER OPERATOR Abdirahman Rios MD [facility] CPT-83497 Level 3 Est. Patient 08:13:35 INSTANTIZER OPERATOR Abdirahman Rios MD [facility] CPT-65462 Level 2 Est. Patient 09:36:42 INSTANTIZER OPERATOR Abdirahman Rios MD [facility] CPT-54496 Level 3 Est. Patient 10:56:43 CDT Abdirahman Rios MD [facility] CPT-14580 Level 3 Est. Patient 18:24:52 CDT Abdirahman Rios MD [facility] CPT-59578 Level 3 Est. Patient 13:27:22 CDT Abdirahman Rios MD [facility] Procedures Code Procedure Name Date Entry Date Standard Desc ription CPT-23829 Postop F/U Visit 17:09:41 INSTANTIZER OPERATOR CPT-78199 Postop F/U Visit 14:08:43 INSTANTIZER OPERATOR CPT-29482 Postop F/U Visit 15:18:16 INSTANTIZER OPERATOR CPT-14294 Postop F/U Visit 15:03:49 INSTANTIZER OPERATOR CPT-39593 Postop F/U Visit 14:45:23 INSTANTIZER OPERATOR CPT-84364 Postop F/U Visit 14:11:03 INSTANTIZER OPERATOR CPT-38681 Postop F/U Visit 18:21:21 INSTANTIZER OPERATOR CPT-16734 Postop F/U Visit 15:57:12 INSTANTIZER OPERATOR CPT-17120 Bladder Instillation 16:58:41 INSTANTIZER OPERATOR 6 CPT-77682 Fluzone Quadrivalent Intramuscular Suspe nsion 0.5 ML 15:20:56 INSTANTIZER OPERATOR CPT-26530 Immunization Single Admin 15:20:56 INSTANTIZER OPERATOR 2014 CPT-89787 Excis pilonidal cyst simple 08:51:34 CDT 20 22/04/20 CPT-62399 Venipuncture Draw Fee 14:27:29 CDT CPT-76850 Postop F/U Visit 15:27:43 CDT CPT-60626 Postop F/U Visit 14:40:59 CDT CPT-61857 Postop F/U Visit 15:02:46 CDT CPT-40046 Postop F/U Visit 11:29:00 INSTANTIZER OPERATOR CPT-J0696 Rocephin 1000 mg (Ceftriaxone) 17:22:33 INSTANTIZER OPERATOR CPT-27077 Postop F/U Visit 18:41:07 INSTANTIZER OPERATOR CPT-85698 Postop F/U Visit 08:19:08 INSTANTIZER OPERATOR CPT-60675 Immunization Single Admin 16:41:53 CDT 2013 CPT-55453 Fluzone Quadrivalent Intramuscular Suspe nsion 0.5 ML 16:41:53 CDT CPT-OV Office Visit 16:39:18 CDT CPT-OV Office Visit 16:16:36 CDT CPT-OV Office Visit 15:34:48 CDT CPT-12276 Postop F/U Visit 14:50:12 CDT CPT-41265 Postop F/U Visit 14:41:10 CDT CPT-28425 Venipuncture Draw Fee 11:38:04 INSTANTIZER OPERATOR CPT-51542 Postop F/U Visit 19:02:59 INSTANTIZER OPERATOR CPT-69590 Postop F/U Visit 12:04:54 INSTANTIZER OPERATOR CPT-20212 Administration single or combination vac cine inc oral 15:56:43 CDT CPT-23215 Influenza split virus > age 3 15:56:43 CDT CPT-66555 Hand comp min 3V 14:25:19 CDT CPT-02683 Postop F/U Visit 21:40:51 CDT CPT-43923 Postop F/U Visit 10:58:43 CDT CPT-06567 Administration single or combination vac cine inc oral 12:33:54 INSTANTIZER OPERATOR CPT-93266 Influenza Preservative Free split virus >age 3 12:33:54 INSTANTIZER OPERATOR CPT-24780 Administration single or combination vac cine inc oral 09:30:51 CDT CPT-30833 Influenza split virus > age 3 09:30:51 CDT CPT-23792 Postop F/U Visit 15:14:53 CDT CPT-22009 Postop F/U Visit 13:50:14 CDT CPT-18810 Postop F/U Visit 13:34:52 CDT CPT-OV Office Visit 16:55:03 CDT CPT-92118 [place] of cervix w bx ECC 13:32:50 CDT 10/19 CPT-J1885 Toradol 60 mg (Ketorolac) 15:31:59 CDT 2011 CPT-J1885 Toradol 60 mg (Ketorolac) 15:23:54 CDT 2011 CPT-48422 Visit 11:34:37 INSTANTIZER OPERATOR CPT-89600 Visit 10:52:39 INSTANTIZER OPERATOR CPT-93221 Visit 10:12:02 INSTANTIZER OPERATOR CPT-97110 Visit 11:22:43 INSTANTIZER OPERATOR CPT-26193 Visit 11:24:12 INSTANTIZER OPERATOR CPT-73766 Visit 10:47:05 INSTANTIZER OPERATOR CPT-OV Office Visit 10:26:16 INSTANTIZER OPERATOR CPT-OV Office Visit 15:34:31 INSTANTIZER OPERATOR CPT-97751 Visit 10:42:08 INSTANTIZER OPERATOR CPT-62344 Visit 10:52:45 INSTANTIZER OPERATOR CPT-000 Give Appropriate Flu Vaccine 16:56:41 CDT 2 CPT-89458 Administration single or combination vac cine inc oral 10:33:21 CDT CPT-59462 Influenza split virus > age 3 10:33:21 CDT CPT-48029 Visit 13:23:09 CDT CPT-53180 Visit 18:24:52 CDT CPT-88285 Sono OB comp > 14 weeks 12:07:49 CDT 04/07
--- OUTSIDE RECORDS SUMMARY | 2020-01-18 16:08 | XMS REPORT | Clinical Summary ---
Author Author Admin, Jeri Cabrera [email or web address] Address Unknown Phone Unavailable Allergies, Adverse Reactions, [...] Chronic pain syndrome 338.4 Active Rajni Alcazar RESEARCH ANIMAL ATTENDANT Chronic pain syndrome AFTERCARE FOLLOW SURGERY SKIN&SUBCUT [...] FOR THERAPEUTIC DRUG MONITORING ICD-V58.83 Jose M Jluian MD AMENORRHEA ICD-626.0 Inactive Good sierra MD [...] Generic Name NDC Status Provider Patient Instruction [id number] 50-325-40 MG ORAL TABS 1 po TID PRN Headaches [id number] Active Abdirahman owen MD Active CHANTIX STARTING MONTH MARGARITA 0.5 MG X 11 & 1 MG X 42 TAB S 0.5mg daily for 3 days, then 0.5mg BID for 4 days, then 1mg BID VARENICL INE TARTRATE 66318867881 Active Abdirahman Rios MD Active AMOXICILLIN 500 MG CAPS 2 po BID x 10 days AMOX ICILLIN 19631055549 No Longer Active Abdirahman Rios MD Active PROMETHAZINE HCL 25 MG TABS 1 four times a day as needed for nausea/vomiting PROMETHAZINE HCL 79702904733 No Longer Active Abdirahman Rios MD Active LC-4 LIDOCAINE 4 % EXT CREA apply q 6 hours, prn 08/03 LIDOCAINE 76628424246 No Longer Active Kalpesh Dong MD Active PERCOCET 10-325 MG TABS 1 tablet every 8 hours as needed for antonia n OXYCODONE-ACETAMINOPHEN 61858237816 No Longer Active Kalpesh Dong MD Active HYDROCODONE-ACETAMINOPHEN 5-325 MG TABS 1 tab by mouth every 6 hours as needed for pain HYDROCODONE-ACETAMINOPHEN 62177652736 No Longer Active Kalpesh Dong MD Active PERCOCET 10-325 MG ORAL TABS 1 every 4 hous as needed OXYCODONE-ACETAMINOPHEN 63952539023 Active Hira Moser APRN Active GLYDO 2 % EXT GEL apply to painful areas as needed LIDOCAINE HCL 69563748006 Active Kalpesh Dong MD Active LC-4 LIDOCAINE 4 % EXT CREA apply to painful area every 12 h ours or as needed LIDOCAINE 12254413865 Active Kalpesh Dong MD Active AUGMENTIN 875-125 MG TAB 1 tab by mouth twice daily with food 20 23/05/16 AMOXICILLIN-POT CLAVULANATE 40193228519 No Longer Active Lizeth hi Yokum RESEARCH ANIMAL ATTENDANT 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 FLUTICASONE PROPIONATE 98233406285 No Longer Ac tive Rajni [place] RESEARCH ANIMAL ATTENDANT Active PERCOCET 10-325 MG ORAL TABS take 1 tab by mouth q 4hours as needed for pain OXYCODONE-ACETAMINOPHEN 42488514753 No Longer Active Rajni Yokum RESEARCH ANIMAL ATTENDANT Active PERCOCET 10-325 MG ORAL TABS one every 6 hours prn pain OXYCODONE-ACETAMINOPHEN 29727715474 No Longer Active Rajni Yokum RESEARCH ANIMAL ATTENDANT Active IBUPROFEN 800 MG TABS 1 tab po tid, with food I BUPROFEN 83742063253 Active Hira Perazal RESEARCH ANIMAL ATTENDANT Active DICLOFENAC SODIUM 50 MG TBEC 1 tablet by mouth four times da tom PRN Pain DICLOFENAC SODIUM 64404352390 No Longer Active Rajni Yokum RESEARCH ANIMAL ATTENDANT Active VIIBRYD 10 & 20 & 40 MG KIT 1 po qd as directed 07/24 VILAZODONE HCL 90193250179 No Longer Active Rajni Yokum RESEARCH ANIMAL ATTENDANT Active ONDANSETRON 4 MG TBDP 1 q4h PRN nausea ONDANSET KELBY 80024465809 No Longer Active Rajni Y[place] RESEARCH ANIMAL ATTENDANT Active PERCOCET 10-325 MG TABS 1 tablet every 8 hours as needed for antonia n OXYCODONE-ACETAMINOPHEN 41339977118 No Longer Active Rajni [place] RESEARCH ANIMAL ATTENDANT Active HYDROCODONE-ACETAMINOPHEN 5-325 MG TABS 1 po TID PRN Pain 9 HYDROCODONE-ACETAMINOPHEN 47938966147 No Longer Active Abdirahman Rios MD Active QHLAJMNQHU-GFP-BOCAGOPE 50-325-40 MG ORAL CAPS 1-2 po TID [place] N Headache [id number] 39333636782 No Longer Act krishna Kalpesh Dong MD Active ALPRAZOLAM 0.5 MG TABS 1 po BID PRN Anxiety ALP RAZOLAM 40623505904 No Longer Active Kalpesh Dong MD Active TRAZODONE HCL 100 MG TAB 0.5 to 1 po qHS PRN Insomnia TRAZODONE HCL 56104303377 No Longer Active Kalpesh Dong MD Activ e HYDROCODONE-ACETAMINOPHEN 5-325 MG TABS 1 po q6hr PRN Pain 04/09 HYDROCODONE-ACETAMINOPHEN 84587716364 No Longer Active Kalpesh Dong MD Active CYMBALTA 30 MG CPEP 1 cap by mouth daily DULOXE CLEO HCL 72356041285 No Longer Active Abdirahman Rios MD Active IBUPROFEN 600 MG ORAL TABS 1 by mouth twice a day 2014 IBUPROFEN 33598352091 No Longer Active Abdirahman Rios MD Activ e PERCOCET 5-325 MG TAB 1 tab po q 6 hours, prn severe pain 1 OXYCODONE-ACETAMINOPHEN 34310676625 No Longer Active Abdirahman Rios MD Active SPRINTEC 28 0.25-35 MG-MCG TABS 1 pill by mouth daily for bi rth control NORGESTIMATE-ETH ESTRADIOL 64895117985 No Longer Acti ve Hira Moser RESEARCH ANIMAL ATTENDANT Active CYCLOBENZAPRINE HCL 10 MG TABS 1 tablet by mouth three times daily as needed for muscle spasm/pain CYCLOBENZAPRINE HCL 25320747284 No Longer Active Hira Moser RESEARCH ANIMAL ATTENDANT Active HYDROCODONE-ACETAMINOPHEN 5-325 MG TABS 1 po q6hr PRN Pain 03/09 HYDROCODONE-ACETAMINOPHEN 73908411344 No Longer Active Hira Peraza l RESEARCH ANIMAL ATTENDANT Active AUGMENTIN 500-125 MG ORAL TABS 1 by mouth twice a day AMOXICILLIN-POT CLAVULANATE 97371031229 No Longer Active Hira Perazal RESEARCH ANIMAL ATTENDANT Active DICLOFENAC SODIUM 50 MG TBEC 1 tablet by mouth four times da tom PRN Pain DICLOFENAC SODIUM 34500519436 No Longer Active Karenin a Karmenl RESEARCH ANIMAL ATTENDANT Active PROMETHAZINE HCL 25 MG TABS 1 four times a day as needed for nausea/vomiting PROMETHAZINE HCL 18024393745 No Longer Active Abdirahman Rios MD Active HYDROCODONE-ACETAMINOPHEN 5-325 MG TABS 1 tab by mouth every 6 hours as needed PRN Pain HYDROCODONE-ACETAMINOPHEN 57644454927 No Longer Active Abdirahman Rios MD Active GEMFIBROZIL 600 MG TABS 1 po BID GEMFIBROZIL 22788062 005 Active Abdirahman Rios MD Active PERCOCET 5-325 MG ORAL TABS 1 every 6 hours as needed OXYCODONE-ACETAMINOPHEN 83800702227 No Longer Active Abdirahman Rios MD Active PERCOCET 5-325 MG TAB 1 tab po q 6 -8 hours, prn for severe pain OXYCODONE-ACETAMINOPHEN 24494395600 No Longer Active Abdirahman Rios MD Active HYDROCODONE-ACETAMINOPHEN 5-325 MG TABS 1 po q6hr PRN pain 06/30 HYDROCODONE-ACETAMINOPHEN 88848674386 No Longer Active Hira Peraza l RESEARCH ANIMAL ATTENDANT Active GLUCOPHAGE 500 MG ORAL TABS one by mouth 3 times a day METFORMIN HCL 25136683523 No Longer Active Hira Moser RESEARCH ANIMAL ATTENDANT Ac tive PERCOCET 10-325 MG TABS 1 tab by mouth every 6 hours , use sparingly for severe pain OXYCODONE-ACETAMINOPHEN 42923441144 No Longer A ctive Abdirahman Rios MD Active EMLA 2.5-2.5 % EXT CREA apply to skin lesion q 6 hours, prn 2014 LIDOCAINE-PRILOCAINE 41961115746 No Longer Active Abdirahman Rios MD Active PERCOCET 10-325 MG ORAL TABS 1 every 4 hours as needed OXYCODONE-ACETAMINOPHEN 29768283448 No Longer Active Abdirahman Rios MD Active AUGMENTIN 875-125 MG TAB 1 tab by mouth twice daily with food 20 21/10/13 AMOXICILLIN-POT CLAVULANATE 89440307262 No Longer Active Ursula jasmina Frazell RESEARCH ANIMAL ATTENDANT Active PROAIR HFA 108 (90 BASE) MCG/ACT AERS 2 puff q 4-6 hrs PRN 01/24 ALBUTEROL SULFATE 59948066149 No Longer Active Kalpesh Dong MD Active PREDNISONE 20 MG TAB 2 tabs daily for 3 days, 1 t ab daily for 3 days, 1/2 tab daily for 2 days PREDNISONE 09251356165 No Longer Active Abdirahman Rios MD Active KEFLEX 500 MG CAP 1 po qid CEPHALEXIN 577533787 20 No Longer Active Kalpesh Dong MD Active PERCOCET 5-325 MG TAB 1 every 6 hours as needed OXYCODONE-ACETAMINOPHEN 17987876251 No Longer Active Shola MCGILL Active LC-5 LIDOCAINE 5 % CREA apply 1 time daily to affected area 2013 LIDOCAINE (ANORECTAL) 89703860685 No Longer Active Hira F radhaell RESEARCH ANIMAL ATTENDANT Active HYDROCODONE-ACETAMINOPHEN 10-325 MG TABS 1 by mouth ev chaka 8 hours as needed for pain HYDROCODONE-ACETAMINOPHEN 99767557316 No Longer Active Jillina Frazell RESEARCH ANIMAL ATTENDANT Active LORATADINE 10 MG TABS 1 tablet by mouth daily L ORATADINE 89439808218 No Longer Active Jillina Frazell RESEARCH ANIMAL ATTENDANT Active DIFLUCAN 150 MG TAB 1 qODay x 2 doses FLUCONAZO LE 08589295563 No Longer Active Jillina Frazell RESEARCH ANIMAL ATTENDANT Active CYCLOBENZAPRINE HCL 10 MG TABS 1/2 - 1 tab PO tid PRN back p ain, muscle spasm CYCLOBENZAPRINE HCL 86342312503 No Longer Active Karen Moser APRN Active AUGMENTIN 875-125 MG TAB 1 tab by mouth twice daily with food 20 22/05/07 AMOXICILLIN-POT CLAVULANATE 14145587714 No Longer Active Loida Rios MD Active MOBIC 15 MG TABS 1 tab daily MELOXICAM 700492888 14 No Longer Active Abdirahman Rios MD Active PERCOCET 7.5-325 MG TABS 1 PO tid PRN pain OXYCODONE-ACETAMINOPHEN 77087177077 No Longer Active Abdirahman Rios MD Active LIDODERM 5 % PTCH One patch to painful area [place] N. On for 12 hrs, off for 12 hrs. LIDOCAINE 73329374876 No Longer Active Abdirahman Rios MD Active PERCOCET 7.5-325 MG TABS 1 PO q 8 hrs PRN pain OXYCODONE-ACETAMINOPHEN 85683396578 No Longer Active Shola MCGILL Active HYDROCODONE-ACETAMINOPHEN 7.5-325 MG TABS 1 by mouth e very 6 hours as needed for pain HYDROCODONE-ACETAMINOPHEN 00286896339 No Longer Active Good Julian MD Active CLINDAMYCIN HCL 300 MG CAPS 1 po QID x 7 days CLINDAMYCIN HCL 32502329365 No Longer Active Abdirahman Rios MD Activ e BACTRIM DS 800-160 MG TABS 1 po BID x 7 days 5 SULFAMETHOXAZOLE-TRIMETHOPRIM 66274763119 No Longer Active Abdirahman Rios MD Active ENDOCET 10-325 MG TABS 1 q 6 hr prn OXYCODONE-ACETAMINOPHEN 26454323444 No Longer Active Abdirahman Rios MD Active IBUPROFEN 800 MG TABS 1 tid prn IBUPROFEN 206720 30139 No Longer Active Abdirahman Rios MD Active BACTRIM DS 800-160 MG TABS by mouth twice a day 11/05 SULFAMETHOXAZOLE-TRIMETHOPRIM 99082193219 No Longer Active Good Julian MD Active HYDROCODONE-ACETAMINOPHEN 7.5-325 MG TABS 1 four times a day as needed for pain HYDROCODONE-ACETAMINOPHEN 57843196324 No Longer Activ e Good Julian MD Active KEFLEX 500 MG CAP 1 tab po tid CEPHALEXIN 250507 85358 No Longer Active Hira Moser APRN Active IBUPROFEN 800 MG TAB 1 pill three times daily as needed for pain IBUPROFEN 32272920261 No Longer Active Kalpesh Dong MD Active PROMETHAZINE-CODEINE 6.25-10 MG/5ML SYRP 1 tsp every 6 hrs prn c ough PROMETHAZINE-CODEINE 43009079452 No Longer Active Kalpesh Carr Active HYDROCODONE-ACETAMINOPHEN 5-325 MG TABS 1 tab by mouth every 6 hours as needed HYDROCODONE-ACETAMINOPHEN 82653799683 No Longer Activ e Shola MCGILL Active CEPHALEXIN 500 MG CAPS 1 PO bid x 7 days CEPHAL EXIN 89130722806 No Longer Active Shola MCGILL Active BACTRIM DS 800-160 MG TAB 1 tab by mouth twice daily 2 TRIMETHOPRIM-SULFAMETHOXAZOLE 70902602625 No Longer Active Kalpesh Dong MD Active HYDROCODONE-ACETAMINOPHEN 5-325 MG TABS 1 PO tid PRN pain 5 HYDROCODONE-ACETAMINOPHEN 57116413982 No Longer Active Abhinav Galvan MD Active IMPLANON 68 MG IMPL IMPLANTED IN LEFT ARM ETONO GESTREL 85291645651 No Longer Active Hira Moser APRN Active AMOXICILLIN 500 MG TABS 2 tabs PO bid x 10 d AM OXICILLIN 92164269654 No Longer Active Kalpesh Dong MD Active LEVAQUIN 500 MG TABS 1 PO q day x 7 days LEVOFL OXACIN 99999645470 No Longer Active Shola MCGILL Active AMITRIPTYLINE HCL 25 MG TAB 1 tab by mouth daily 60 minutes before bedtime AMITRIPTYLINE HCL 98386674963 No Longer Active Shola MCGILL Active LORTAB 5 5-500 MG TABS 1/2 to 1 tablet by mouth go ry 6 hours as needed for pain HYDROCODONE-ACETAMINOPHEN 12267974218 No Longer Active Shola MCGILL Active CEPHALEXIN 500 MG TABS Take one by mouth four times daily, morning, noon, early evening and bedtime. CEPHALEXIN 85502675904 No Long er Active Hira Moser APRN Active TYLENOL/CODEINE #3 300-30 MG TAB 1-2 po q6hr PRN Pain ACETAMINOPHEN-CODEINE 59695851201 No Longer Active Edilberto Marino DO Active PRISTIQ 50 MG [id number] 1 po qd DESVENLAFAXI NE SUCCINATE 19471038927 No Longer Active Edilberto Marino DO Active PENICILLIN V POTASSIUM 500 MG TAB 1 four times a day 2 PENICILLIN V POTASSIUM 68073366849 No Longer Active Edilberto Marino DO Active DOXYCYCLINE HYCLATE 100 MG CAPS Take one (1) tablet by mouth twice a day DOXYCYCLINE HYCLATE 91206053320 No Longer Active Ronnie Galavn MD Active HYDROCODONE-ACETAMINOPHEN 5-325 MG TABS 1 po q 6hr PRN Pain 2011 HYDROCODONE-ACETAMINOPHEN 51684523197 No Longer Active Patri joan Perez RN Active BACTRIM DS 800-160 MG TAB 1 tab by mouth twice daily 2 TRIMETHOPRIM-SULFAMETHOXAZOLE 33483776376 No Longer Active Kalpesh Dong MD Active LORTAB 5 5-500 MG TABS 1/2 to 1 tablet by mouth go ry 4 hours as needed for pain HYDROCODONE-ACETAMINOPHEN 02288033948 No Longer Active Kalpesh Dong MD Active GENERESS FE 0.8-25 MG-MCG CHEW Take one by mouth daily NORETHIN-ETH ESTRADIOL-FE 05278748352 No Longer Active Kalpesh Dong MD Active HYDROCODONE-ACETAMINOPHEN 7.5-500 MG TABS 1-2 every 4 hours as needed HYDROCODONE-ACETAMINOPHEN 04373082276 No Longer Activ e Kalpesh Dong MD Active FERROUS SULFATE 325 (65 FE) MG TABS 1 tablet by mouth twice yung y FERROUS SULFATE 55172127654 No Longer Active Kalpesh Dong MD Active IBUPROFEN 600 MG TAB 1 po q6-8hr PRN IBUPROFEN 80865495951 No Longer Active Kalpesh Dong MD Active SPIRONOLACTONE 25 MG TAB 1 tablet by mouth daily 01/22 SPIRONOLACTONE 34738220262 No Longer Active Kalpesh Dong MD Acti ve HYDROCODONE-ACETAMINOPHEN 7.5-325 MG TABS 1 po QID PRN Pain 2011 HYDROCODONE-ACETAMINOPHEN 98386257761 No Longer Active Kalpesh Dong MD Active CLINDAMYCIN HCL 300 MG CAPS 1 po q6hr x 7 days CLINDAMYCIN HCL 55666377141 No Longer Active Edilberto Marino DO Active PREDNISONE 20 MG TAB 2 tabs daily for 4 days, 1 t ab daily for 4 days, 1/2 tab daily for 4 days PREDNISONE 35687284963 No Longer Active Edilberto Marino DO Active PERCOCET 5-325 MG TABS 1 tablet by mouth every 6 hours as ne eded for pain OXYCODONE-ACETAMINOPHEN 90784937696 No Longer Active Abdirahman Rios MD Active VITAMINS TABS Take one by mouth daily MV & MIN W/FE-FA TABS 92095275901 No Longer Active Abdirahman Rios MD Active LUIS 3-0.02 MG TABS 1 tablet by mouth daily as directed DROSPIRENONE-ETHINYL ESTRADIOL 76028952894 No Longer Active Abdirahman Rios MD Active LORATADINE 10 MG TABS 1 tablet by mouth daily L ORATADINE 12307199080 No Longer Active Kalpesh Dong MD Active HYDROCODONE-ACETAMINOPHEN 5-325 MG TABS 1 po q 6hr PRN Pain 2010 HYDROCODONE-ACETAMINOPHEN 83461129172 No Longer Active Edilberto Marino DO Active BACTRIM DS 800-160 MG TAB 1 tab by mouth twice daily 2 TRIMETHOPRIM-SULFAMETHOXAZOLE 72474428797 No Longer Active Abdirahman Rios MD Active 28-0.8 MG TABS Take one by mouth daily 09/20 VIT-FE FUMARATE-FA 57028222058 No Longer Active Abdirahman Rios MD Active CIPRO 500 MG TAB 1 tablet by mouth twice daily CIPROFLOXACIN HCL 10923805842 No Longer Active Abdirahman Rios MD Active BENADRYL 25 MG CAP 1 po q8hr PRN Congestion DIPHENHYDRAMINE HCL 09660646011 No Longer Active Abdirahman Rios MD Active ZOLOFT 50 MG TAB 1 po qd SERTRALINE HCL 664926 77751 No Longer Active Abdirahman Rios MD Active AMOXICILLIN 875 MG TABS 1 tab by mouth twice daily 201 08/09/13 AMOXICILLIN 52455734355 No Longer Active Abdirahman Rios MD Activ e AMOXICILLIN 875 MG TABS 1 tab by mouth twice daily 201 07/19/27 AMOXICILLIN 54601757189 No Longer Active Abdirahman Rios MD Activ e BACTRIM DS 800-160 MG TAB 2 tab by mouth twice daily 2 TRIMETHOPRIM-SULFAMETHOXAZOLE 91508239478 No Longer Active Abdirahman Rios MD Active KEFLEX 500 MG CAP 1 po tid x 10 days CEPHALEXIN 84570498094 No Longer Active Abdirahman Rios MD Active AMOXICILLIN 875 MG TABS 1 tab by mouth twice daily 201 07/18/07 AMOXICILLIN 26221300607 No Longer Active Abdirahman Rios MD Activ e BACTRIM DS 800-160 MG TAB 2 tab by mouth twice daily 2 BACTRIM DS 800-160 MG TAB 421582 TRIMETHOPRIM-SULFAMETHOXAZOLE Inactive ZOLOFT 50 MG TAB 1 po qd ZOLOFT 50 MG TAB 3129 41 SERTRALINE HCL Inactive BENADRYL 25 MG CAP 1 po q8hr PRN Congestion BENADRYL 25 MG CAP 9041795 DIPHENHYDRAMINE HCL Inactive 28-0.8 MG TABS Take one by mouth daily 09/20 28-0.8 MG TABS VIT-FE FUMARATE-FA Inactive HYDROCODONE-ACETAMINOPHEN 5-325 MG TABS 1 po q 6hr PRN Pain 2010 HYDROCODONE-ACETAMINOPHEN 5-325 MG TABS 417633 HYDROCODONE-ACETAMINOPHEN Inactive LORATADINE 10 MG TABS 1 tablet by mouth daily LORATADINE 10 MG TABS 606255 LORATADINE Inactive LUIS 3-0.02 MG TABS 1 tablet by mouth daily as directed LUIS 3-0.02 MG TABS 354414 DROSPIRENONE-ETHINYL ESTRADIOL Inactive VITAMINS TABS Take one by mouth daily VITAMINS TABS MV & MIN W/FE-FA TABS Inactive PERCOCET 5-325 MG TABS 1 tablet by mouth every 6 hours as ne eded for pain PERCOCET 5-325 MG TABS 6850850 OXYCODONE-ACETAMIN OPHEN Inactive PREDNISONE 20 MG TAB 2 tabs daily for 4 days, 1 t ab daily for 4 days, 1/2 tab daily for 4 days PREDNISONE 20 MG TAB 854820 PREDNISON E Inactive CLINDAMYCIN HCL 300 MG CAPS 1 po q6hr x 7 days CLINDAMYCIN HCL 300 MG CAPS 598226 CLINDAMYCIN HCL Inactive HYDROCODONE-ACETAMINOPHEN 7.5-325 MG TABS 1 po QID PRN Pain 2011 HYDROCODONE-ACETAMINOPHEN 7.5-325 MG TABS 055414 HYDROCODONE-ACETAMINOPHEN Inactive SPIRONOLACTONE 25 MG TAB 1 tablet by mouth daily 01/22 SPIRONOLACTONE 25 MG TAB 840248 SPIRONOLACTONE Inactive IBUPROFEN 600 MG TAB 1 po q6-8hr PRN IBUPROFEN 600 MG TAB 653867 IBUPROFEN Inactive FERROUS SULFATE 325 (65 FE) MG TABS 1 tablet by mouth twice yung y FERROUS SULFATE 325 (65 FE) MG TABS 564833 FERROUS SULF ATE Inactive HYDROCODONE-ACETAMINOPHEN 7.5-500 MG TABS 1-2 every 4 hours as needed HYDROCODONE-ACETAMINOPHEN 7.5-500 MG TABS HYDROCODONE-ACETAMINOPHEN Inactive GENERESS FE 0.8-25 MG-MCG CHEW Take one by mouth daily GENERESS FE 0.8-25 MG-MCG CHEW [id number] NORETHIN-ETH ESTRADIOL-FE Inactive LORTAB 5 5-500 MG TABS 1/2 to 1 tablet by mouth go ry 4 hours as needed for pain LORTAB 5 5-500 MG TABS HYDROCODONE-A CETAMINOPHEN Inactive BACTRIM DS 800-160 MG TAB 1 tab by mouth twice daily 2 BACTRIM DS 800-160 MG TAB 809511 TRIMETHOPRIM-SULFAMETHOXAZOLE Inac tive HYDROCODONE-ACETAMINOPHEN 5-325 MG TABS 1 po q 6hr PRN Pain 2011 HYDROCODONE-ACETAMINOPHEN 5-325 MG TABS 888201 HYDROCODONE-ACETAMINOPHEN Inactive DOXYCYCLINE HYCLATE 100 MG CAPS Take one (1) tablet by mouth twice a day DOXYCYCLINE HYCLATE 100 MG CAPS 4153595 DOXYCYCLINE HYCLATE Inactive PENICILLIN V POTASSIUM 500 MG TAB 1 four times a day 2 PENICILLIN V POTASSIUM 500 MG TAB 224486 PENICILLIN V POTASSIUM Siri ctive PRISTIQ 50 MG [id number] 1 po qd PRISTIQ 50 MG [id number] DESVENLAFAXINE SUCCINATE Inactive TYLENOL/CODEINE #3 300-30 MG TAB 1-2 po q6hr PRN Pain TYLENOL/CODEINE #3 300-30 MG TAB 483112 ACETAMINOPHEN-CODEINE Inact krishna CEPHALEXIN 500 MG TABS Take one by mouth four times daily, morning, noon, early evening and bedtime. CEPHALEXIN 500 MG TABS 566311 CEPHALEXIN Inactive LORTAB 5 5-500 MG TABS 1/2 to 1 tablet by mouth go ry 6 hours as needed for pain LORTAB 5 5-500 MG TABS HYDROCODONE-A CETAMINOPHEN Inactive AMITRIPTYLINE HCL 25 MG TAB 1 tab by mouth daily 60 minutes before bedtime AMITRIPTYLINE HCL 25 MG TAB 614920 AMITRIPTYLINE HCL Inactive AMOXICILLIN 500 MG TABS 2 tabs PO bid x 10 d 7 AMOXICILLIN 500 MG TABS 424839 AMOXICILLIN Inactive IMPLANON 68 MG IMPL IMPLANTED IN LEFT ARM IMPLANON 68 MG IMPL ETONOGESTREL Inactive HYDROCODONE-ACETAMINOPHEN 5-325 MG TABS 1 PO tid PRN pain 5 HYDROCODONE-ACETAMINOPHEN 5-325 MG TABS 903125 HYDROCODONE-ACETAMIN OPHEN Inactive BACTRIM DS 800-160 MG TAB 1 tab by mouth twice daily 2 BACTRIM DS 800-160 MG TAB 316703 TRIMETHOPRIM-SULFAMETHOXAZOLE Inac tive CEPHALEXIN 500 MG CAPS 1 PO bid x 7 days CEPHALEXIN 500 MG CAPS 742811 CEPHALEXIN Inactive HYDROCODONE-ACETAMINOPHEN 5-325 MG TABS 1 tab by mouth every 6 hours as needed HYDROCODONE-ACETAMINOPHEN 5-325 MG TABS 517173 HYDROCODONE-ACETAMINOPHEN Inactive PROMETHAZINE-CODEINE 6.25-10 MG/5ML SYRP 1 tsp every 6 hrs prn c ough PROMETHAZINE-CODEINE 6.25-10 MG/5ML SYRP 177665 PROMETH AZINE-CODEINE Inactive IBUPROFEN 800 MG TAB 1 pill three times daily as needed for pain IBUPROFEN 800 MG TAB IBUPROFEN Inactive KEFLEX 500 MG CAP 1 tab po tid KEFLEX 500 MG CAP 679570 CEPHALEXIN Inactive HYDROCODONE-ACETAMINOPHEN 7.5-325 MG TABS 1 four times a day as needed for pain HYDROCODONE-ACETAMINOPHEN 7.5-325 MG TABS 578639 HYDROCODONE-ACETAMINOPHEN Inactive BACTRIM DS 800-160 MG TABS by mouth twice a day 11/05 BACTRIM DS 800-160 MG TABS 907388 SULFAMETHOXAZOLE-TRIMETHOPRIM Inactive IBUPROFEN 800 MG TABS 1 tid prn IBUPROFEN 800 MG TABS 871452 IBUPROFEN Inactive ENDOCET 10-325 MG TABS 1 q 6 hr prn ENDOC ET 10-325 MG TABS 8659268 OXYCODONE-ACETAMINOPHEN Inactive HYDROCODONE-ACETAMINOPHEN 7.5-325 MG TABS 1 by mouth e very 6 hours as needed for pain HYDROCODONE-ACETAMINOPHEN 7.5-325 MG TABS 695823 HYDROCODONE-ACETAMINOPHEN Inactive PERCOCET 7.5-325 MG TABS 1 PO q 8 hrs PRN pain PERCOCET 7.5-325 MG TABS 9754878 OXYCODONE-ACETAMINOPHEN Inactive LIDODERM 5 % PTCH One patch to painful area [place] N. On for 12 hrs, off for 12 hrs. LIDODERM 5 % PTCH 1811668 LIDOCAINE Inactiv e PERCOCET 7.5-325 MG TABS 1 PO tid PRN pain PERCOCET 7.5- 325 MG TABS 9636519 OXYCODONE-ACETAMINOPHEN Inactive MOBIC 15 MG TABS 1 tab daily MOBIC 15 MG TABS 15 2695 MELOXICAM Inactive CYCLOBENZAPRINE HCL 10 MG TABS 1/2 - 1 tab PO tid PRN back p ain, muscle spasm CYCLOBENZAPRINE HCL 10 MG TABS 820864 CYCLOBENZA JOSEPH HCL Inactive LORATADINE 10 MG TABS 1 tablet by mouth daily LORATADINE 10 MG TABS 676592 LORATADINE Inactive HYDROCODONE-ACETAMINOPHEN 10-325 MG TABS 1 by mouth ev chaka 8 hours as needed for pain HYDROCODONE-ACETAMINOPHEN 10-325 MG TABS 759100 HYDROCODONE-ACETAMINOPHEN Inactive LC-5 LIDOCAINE 5 % CREA apply 1 time daily to affected area 2013 LC-5 LIDOCAINE 5 % CREA 1917850 LIDOCAINE (ANORECTAL) In active PERCOCET 5-325 MG TAB 1 every 6 hours as needed PERCOCET 5-325 MG TAB 4016214 OXYCODONE-ACETAMINOPHEN Inactive KEFLEX 500 MG CAP 1 po qid KEFLEX 500 MG CAP 30 9114 CEPHALEXIN Inactive PROAIR HFA 108 (90 BASE) MCG/ACT AERS 2 puff q 4-6 hrs PRN 01/24 PROAIR HFA 108 (90 BASE) MCG/ACT AERS ALBUTEROL SULFATE Inactive PERCOCET 10-325 MG ORAL TABS 1 every 4 hours as needed PERCOCET 10-325 MG ORAL TABS 9963198 OXYCODONE-ACETAMINOPHEN Inactiv e EMLA 2.5-2.5 % EXT CREA apply to skin lesion q 6 hours, prn 2014 EMLA 2.5-2.5 % EXT CREA 516895 LIDOCAINE-PRILOCAINE Siri ctive PERCOCET 10-325 MG TABS 1 tab by mouth every 6 hours , use sparingly for severe pain PERCOCET 10-325 MG TABS 8752800 OXYCODONE-ACETAMINOPHEN Inactive GLUCOPHAGE 500 MG ORAL TABS one by mouth 3 times a day GLUCOPHAGE 500 MG ORAL TABS 429268 METFORMIN HCL Inactive HYDROCODONE-ACETAMINOPHEN 5-325 MG TABS 1 po q6hr PRN pain 06/30 HYDROCODONE-ACETAMINOPHEN 5-325 MG TABS [id number] HYDROCOD ONE-ACETAMINOPHEN Inactive PERCOCET 5-325 MG TAB 1 tab po q 6 -8 hours, prn for severe pain PERCOCET 5-325 MG TAB [id number] OXYCODONE-ACETAMINOPHEN In active PERCOCET 5-325 MG ORAL TABS 1 every 6 hours as needed PERCOCET 5-325 MG ORAL TABS [id number] OXYCODONE-ACETAMINOPHEN Inactive DICLOFENAC SODIUM 50 MG TBEC 1 tablet by mouth four times da tom PRN Pain DICLOFENAC SODIUM 50 MG TBEC [id number] DICLOFENAC S ODIUM Inactive AUGMENTIN 500-125 MG ORAL TABS 1 by mouth twice a day AUGMENTIN 500-125 MG ORAL TABS [id number] AMOXICILLIN-POT CLAVULANATE I nactive HYDROCODONE-ACETAMINOPHEN 5-325 MG TABS 1 po q6hr PRN Pain 03/09 HYDROCODONE-ACETAMINOPHEN 5-325 MG TABS [id number] HYDROCOD ONE-ACETAMINOPHEN Inactive CYCLOBENZAPRINE HCL 10 MG TABS 1 tablet by mouth three times daily as needed for muscle spasm/pain CYCLOBENZAPRINE HCL 10 MG TABS [id number] CYCLOBENZAPRINE HCL Inactive SPRINTEC 28 0.25-35 MG-MCG TABS 1 pill by mouth daily for bi rth control SPRINTEC 28 0.25-35 MG-MCG TABS [id number] NORGESTIMATE-ETH ESTRADIOL Inactive PERCOCET 5-325 MG TAB 1 tab po q 6 hours, prn severe pain PERCOCET 5-325 MG TAB [id number] OXYCODONE-ACETAMINOPHEN Inactive IBUPROFEN 600 MG ORAL TABS 1 by mouth twice a day 2014 IBUPROFEN 600 MG ORAL TABS [id number] IBUPROFEN Inactive CYMBALTA 30 MG CPEP 1 cap by mouth daily CYMBALTA 30 MG CPEP [id number] DULOXETINE HCL Inactive HYDROCODONE-ACETAMINOPHEN 5-325 MG TABS 1 po q6hr PRN Pain 04/09 HYDROCODONE-ACETAMINOPHEN 5-325 MG TABS [id number] HYDROCOD ONE-ACETAMINOPHEN Inactive TRAZODONE HCL 100 MG TAB 0.5 to 1 po qHS PRN Insomnia TRAZODONE HCL 100 MG TAB [id number] TRAZODONE HCL Inactive ALPRAZOLAM 0.5 MG TABS 1 po BID PRN Anxiety ALPRAZOLAM 0.5 MG TABS [id number] ALPRAZOLAM Inactive [id number] 50-325-40 MG ORAL CAPS 1-2 po TID [place] N Headache [id number] 50-325-40 MG ORAL CAPS 2 [id number] Inactive HYDROCODONE-ACETAMINOPHEN 5-325 MG TABS 1 po TID PRN Pain 9 HYDROCODONE-ACETAMINOPHEN 5-325 MG TABS [id number] HYDROCODONE-ACETAMIN OPHEN Inactive PERCOCET 10-325 MG TABS 1 tablet every 8 hours as needed for antonia n PERCOCET 10-325 MG TABS [id number] OXYCODONE-ACETAMINOPHEN Inactive ONDANSETRON 4 MG TBDP 1 q4h PRN nausea ON DANSETRON 4 MG TBDP 377062 ONDANSETRON Inactive VIIBRYD 10 & 20 & 40 MG KIT 1 po qd as directed 07/24 VIIBRYD 10 & 20 & 40 MG KIT VILAZODONE HCL Inactive DICLOFENAC SODIUM 50 MG TBEC 1 tablet by mouth four times da tom PRN Pain DICLOFENAC SODIUM 50 MG TBEC 361217 DICLOFENAC S ODIUM Inactive PERCOCET 10-325 MG ORAL TABS one every 6 hours prn pain PERCOCET 10-325 MG ORAL TABS [id number] OXYCODONE-ACETAMINOPHEN Inactiv e PERCOCET 10-325 MG ORAL TABS take 1 tab by mouth q 4hours as needed for pain PERCOCET 10-325 MG ORAL TABS [id number] OXYCODONE-ACETAMINOPHEN Inactive FLONASE ALLERGY RELIEF 50 MCG/ACT NASAL SUSP One spray in each nostril twice a day. FLONASE ALLERGY RELIEF 50 MCG/ACT NASAL S PRISON 529642 FLUTICASONE PROPIONATE Inactive AUGMENTIN 875-125 MG TAB 1 tab by mouth twice daily with food 20 23/05/16 AUGMENTIN 875-125 MG TAB 262041 AMOXICILLIN-POT [place] Inactive HYDROCODONE-ACETAMINOPHEN 5-325 MG TABS 1 tab by mouth every 6 hours as needed for pain HYDROCODONE-ACETAMINOPHEN 5-325 MG TABS 8 77798 HYDROCODONE-ACETAMINOPHEN Inactive PERCOCET 10-325 MG TABS 1 tablet every 8 hours as needed for antonia n PERCOCET 10-325 MG TABS [id number] OXYCODONE-ACETAMINOPHEN Inactive LC-4 LIDOCAINE 4 % EXT CREA apply q 6 hours, prn 08/03 LC-4 LIDOCAINE 4 % EXT CREA [id number] LIDOCAINE Inactive PROMETHAZINE HCL 25 MG TABS 1 four times a day as needed for nausea/vomiting PROMETHAZINE HCL 25 MG TABS 550117 PROMETHAZINE HCL Inactive AMOXICILLIN 875 MG TABS 1 tab by mouth twice daily 201 07/18/07 AMOXICILLIN 875 MG TABS 870517 AMOXICILLIN Inactive KEFLEX 500 MG CAP 1 po tid x 10 days KEFLEX 500 MG CAP 121400 CEPHALEXIN Inactive AMOXICILLIN 875 MG TABS 1 tab by mouth twice daily 201 07/19/27 AMOXICILLIN 875 MG TABS 934695 AMOXICILLIN Inactive AMOXICILLIN 875 MG TABS 1 tab by mouth twice daily 201 08/09/13 AMOXICILLIN 875 MG TABS 267030 AMOXICILLIN Inactive CIPRO 500 MG TAB 1 tablet by mouth twice daily CIPRO 500 MG TAB 068611 CIPROFLOXACIN HCL Inactive BACTRIM DS 800-160 MG TAB 1 tab by mouth twice daily 2 BACTRIM DS 800-160 MG TAB 797097 TRIMETHOPRIM-SULFAMETHOXAZOLE Inac tive LEVAQUIN 500 MG TABS 1 PO q day x 7 days LEVAQUIN 500 MG TABS 404218 LEVOFLOXACIN Inactive CLINDAMYCIN HCL 300 MG CAPS 1 po QID x 7 days CLINDAMYCIN HCL 300 MG CAPS 846829 CLINDAMYCIN HCL Inactive AUGMENTIN 875-125 MG TAB 1 tab by mouth twice daily with food 20 22/05/07 AUGMENTIN 875-125 MG TAB 742793 AMOXICILLIN-POT [place] Inactive DIFLUCAN 150 MG TAB 1 qODay x 2 doses DIFLUCAN 150 MG TAB 080667 FLUCONAZOLE Inactive PREDNISONE 20 MG TAB 2 tabs daily for 3 days, 1 t ab daily for 3 days, 1/2 tab daily for 2 days PREDNISONE 20 MG TAB 408388 PREDNISON E Inactive AUGMENTIN 875-125 MG TAB 1 tab by mouth twice daily with food 20 21/10/13 AUGMENTIN 875-125 MG TAB 192789 AMOXICILLIN-POT [place] Inactive HYDROCODONE-ACETAMINOPHEN 5-325 MG TABS 1 tab by mouth every 6 hours as needed PRN Pain HYDROCODONE-ACETAMINOPHEN 5-325 MG TABS 8 45244 HYDROCODONE-ACETAMINOPHEN Inactive PROMETHAZINE HCL 25 MG TABS 1 four times a day as needed for nausea/vomiting PROMETHAZINE HCL 25 MG TABS 744736 PROMETHAZINE HCL Inactive AMOXICILLIN 500 MG CAPS 2 po BID x 10 days AMOXICILLIN 500 MG CAPS 669197 AMOXICILLIN Inactive Advance Directives Directive Description Start Date PERMISSION TO SHARE Immunizations Vaccine Administration Date Value Standard Alf cription Seasonal influenza vaccine, injectable, containing preservative, for > 3 years old (Afluria, FluLaval, Fluzone, Fluvirin, Fluarix, Agriflu(>= 18 yo)) Fluzone (>3 yrs.) [[id number]] Influenza, seasonal, inject able Seasonal influenza vaccine, injectable, preservative free, for > 3 years old (Afluria, FluLaval, Fluzone, Fluvirin, Fluarix, Agriflu(>= 18 yo)) Fluzone preservative free (>3 yrs.) [[id number]] Influenza, seasonal, injectable, preservative free Seasonal influenza vaccine, injectable, containing preservative, for > 3 years old (Afluria, FluLaval, Fluzone, Fluvirin, Fluarix, Agriflu(>= 18 yo)) Fluzone (>3 yrs.) [[id number]] Influenza, seasonal, inject able Seasonal influenza vaccine, injectable, containing preservative, for > 3 years old (Afluria, FluLaval, Fluzone, Fluvirin, Fluarix, Agriflu(>= 18 yo)) Fluzone (>3 yrs.) [[id number]] Influenza, seasonal, inject able dT (Diphtheria and [...] Panel - Chemistry sodium, serum 142 mmol/L [phone]/05/12 potassium, serum 4.8 mmol/L 3.5-5.2 chloride, serum [...] ... - Chemistry sodium, serum 137 mmol/L [phone]/02/24 carbon dioxide, venous blood 26.3 mmol/L 21.0-32 [...] Panel - Chemistry cholesterol, serum 181 mg/dL 388-056 2132/09/01 triglyceride, serum, fasting 341 mg/dL 30-200 HDL cholesterol, serum 22 mg/dL 32-96 LDL cholesterol, serum 91 mg/dL 0-130 cholesterol, serum 165 mg/dL [phone]/05/12 triglyceride, serum, fasting 524 mg/dL 30-200 HDL [...] negative Encounters Code Encounter Date Provider Facility CPT-31104 Level 4 Est. Patient 16:38:26 [facility]AMA CRITIC Abdirahman Rios MD [facility] CPT-44990 Level 3 Est. Patient 05:31:41 [employer]AMA CRITIC Kalpesh goins MD [facility] CPT-93011 Level 3 Est. Patient 11:22:02 DRAMA CRITIC Hira muniz [facility] CPT-95279 Level 3 Est. Patient 21:00:18 DRAMA CRITIC Rajni danielson [facility] CPT-12913 Level 3 Est. Patient 14:15:00 [employer]AMA CRITIC Kalpesh goins MD [facility] CPT-43534 Level 2 Est. Patient 19:57:52 DRAMA CRITIC Rajni danielson [facility] CPT-82186 Level 3 Est. Patient 16:58:40 DRAMA CRITIC Bj funes MD [facility] CPT-54408 Level 3 Est. Patient 08:51:33 CDT Kalpesh goins MD [facility] CPT-70261 Level 4 Est. Patient 14:14:53 CDT Abdirahman Rios MD [facility] CPT-94563 Level 3 Est. Patient 15:47:40 CDT Kalpesh goins MD [facility]-73067 Level 3 Est. Patient 10:57:26 CDT Abdirahman Rios MD [facility]-36803 Level 3 Est. Patient 14:29:53 CDT Abhinav Galvan MD [facility] CPT-90613 Level 2 Est. Patient 16:33:01 CDT Kalpesh goins MD [facility]-69047 Level 4 Est. Patient 16:44:56 CDT Abdirahman Rios MD [facility]-51748 Level 2 Est. Patient 07:49:32 CDT Kalpesh goins MD [facility] CPT-25225 Level 3 New Patient 15:47:11 DRAMA CRITIC Bj huber MD [facility]-80432 Level 4 Est. Patient 14:37:38 DRAMA CRITIC Abdirahman Rios MD [facility] CPT-30830 Level 2 Est. Patient 13:32:17 DRAMA CRITIC Kalpesh goins MD [facility]-73788 Level 3 Est. Patient 17:32:57 DRAMA CRITIC Edilberto tiwari [facility] CPT-36668 Level 3 Est. Patient 17:22:33 DRAMA CRITIC Edilberto tiwari [facility] CPT-28268 Level 2 Est. Patient 16:57:09 DRAMA CRITIC Kalpesh goins MD [facility]-42582 Level 3 Est. Patient 14:03:08 DRAMA CRITIC Abdirahman Rios MD [facility]-76644 Level 3 Est. Patient 18:12:34 CDT Shola Wirght [facility] CPT-15883 Level 3 Est. Patient 19:34:46 CDT Shola W Cloven [facility] CPT-14681 Level 3 Est. Patient 14:19:37 CDT Abdirahman Rios MD [facility] CPT-69687 Level 3 Est. Patient 14:11:58 CDT Kalpesh goins MD [facility] CPT-86454 Level 3 Est. Patient 16:50:00 CDT Michelle Deleon atilio MERCADO [facility] CPT-58595 Level 3 Est. Patient 17:11:32 [employer]AMA CRITIC Brandie bates MD PhD [facility] CPT-14633 Level 3 Est. Patient 16:31:47 DRAMA CRITIC Shola Wright [facility] CPT-70005 Level 3 Est. Patient 17:51:10 DRAMA CRITIC Abhinav Galvan MD [facility] CPT-25928 Level 4 Est. Patient 12:54:56 DRAMA CRITIC Kalpesh goins MD [facility] CPT-33651 Level 4 Est. Patient 12:53:56 DRAMA CRITIC Kalpesh goins MD [facility] CPT-75585 Level 3 Est. Patient 17:56:58 CDT Shola Wright [facility] CPT-81127 Level 3 Est. Patient 14:26:20 CDT Janak butcher [facility] CPT-18986 Level 3 Est. Patient 09:38:41 CDT Shola Wright [facility] CPT-99439 Level 3 Est. Patient 14:45:26 CDT Edilberto tiwari [facility] CPT-85657 Level 3 Est. Patient 10:51:33 CDT [facility] Level 3 Est. Patient 11:57:55 DRAMA CRITIC Shola Wright [facility] CPT-89217 Level 3 Est. Patient 09:53:33 DRAMA CRITIC Edilberto tiwari DO [facility] CPT-05886 Level 3 Est. Patient 14:42:54 DRAMA CRITIC Abhinav Galvan MD [facility] CPT-33066 Level 3 Est. Patient 15:10:02 CDT Janak Dominguez guadalupe MCGILL [facility] CPT-59796 Level 3 Est. Patient 15:20:20 CDT Theo dennis MD [facility] CPT-37916 Level 2 Est. Patient 14:08:57 CDT Kalpesh goins MD [facility] CPT-88393 Level 3 Est. Patient 13:56:19 CDT Abdirahman Rios MD [facility] CPT-43092 Level 3 Est. Patient 13:59:37 CDT Abdirahman Rios MD [facility]-00647 Level 2 Est. Patient 14:44:59 CDT Kalpesh goins MD [facility] CPT-67482 Level 3 Est. Patient 06:06:23 CDT Edilberto tiwari DO [facility] CPT-12983 Level 3 Est. Patient 15:23:54 CDT Abdirahman Rios MD [facility] CPT-70910 Level 3 Est. Patient 15:43:49 CDT Abdirahman Rios MD [facility] CPT-75595 Level 3 Est. Patient 12:46:47 [employer]AMA CRITIC Abdirahman Rios MD [facility] CPT-63412 Level 3 Est. Patient 08:13:35 DRAMA CRITIC Abdirahman Rios MD [facility] CPT-29038 Level 2 Est. Patient 09:36:42 [employer]AMA CRITIC Abdirahman Rios MD [facility] CPT-76110 Level 3 Est. Patient 10:56:43 CDT Abdirahman Rios MD [facility] CPT-51850 Level 3 Est. Patient 18:24:52 CDT Abdirahman Rios MD [facility] CPT-50433 Level 3 Est. Patient 13:27:22 CDT Abdirahman Rios MD [facility] Procedures Code Procedure Name Date Entry Date Standard Desc ription CPT-84956 Postop F/U Visit 16:21:51 [employer]AMA CRITIC CPT-78141 Postop F/U Visit 17:09:41 [employer]AMA CRITIC CPT-02520 Postop F/U Visit 14:08:43 [employer]AMA CRITIC CPT-15080 Postop F/U Visit 15:18:16 [employer]AMA CRITIC CPT-15497 Postop F/U Visit 15:03:49 DRAMA CRITIC CPT-35273 Postop F/U Visit 14:45:23 DRAMA CRITIC CPT-30239 Postop F/U Visit 14:11:03 DRAMA CRITIC CPT-25385 Postop F/U Visit 18:21:21 DRAMA CRITIC CPT-64141 Postop F/U Visit 15:57:12 DRAMA CRITIC CPT-81027 Bladder Instillation 16:58:41 DRAMA CRITIC 6 CPT-36889 Fluzone Quadrivalent Intramuscular Suspe nsion 0.5 ML 15:20:56 DRAMA CRITIC CPT-52424 Immunization Single Admin 15:20:56 DRAMA CRITIC 2014 CPT-46230 Excis pilonidal cyst simple 08:51:34 CDT 20 22/04/20 CPT-58455 Venipuncture Draw Fee 14:27:29 CDT CPT-23626 Postop F/U Visit 15:27:43 CDT CPT-18234 Postop F/U Visit 14:40:59 CDT CPT-34509 Postop F/U Visit 15:02:46 CDT CPT-93883 Postop F/U Visit 11:29:00 [employer]AMA CRITIC CPT-J0696 Rocephin 1000 mg (Ceftriaxone) 17:22:33 DRAMA CRITIC CPT-10402 Postop F/U Visit 18:41:07 DRAMA CRITIC CPT-10482 Postop F/U Visit 08:19:08 DRAMA CRITIC CPT-28208 Immunization Single Admin 16:41:53 CDT 2013 CPT-91695 Fluzone Quadrivalent Intramuscular Suspe nsion 0.5 ML 16:41:53 CDT CPT-OV Office Visit 16:39:18 CDT CPT-OV Office Visit 16:16:36 CDT CPT-OV Office Visit 15:34:48 CDT CPT-68274 Postop F/U Visit 14:50:12 CDT CPT-70225 Postop F/U Visit 14:41:10 CDT CPT-34801 Venipuncture Draw Fee 11:38:04 [employer]AMA CRITIC CPT-43886 Postop F/U Visit 19:02:59 DRAMA CRITIC CPT-62528 Postop F/U Visit 12:04:54 DRAMA CRITIC CPT-46503 Administration single or combination vac cine inc oral 15:56:43 CDT CPT-46946 Influenza split virus > age 3 15:56:43 CDT CPT-36565 Hand comp min 3V 14:25:19 CDT CPT-96774 Postop F/U Visit 21:40:51 CDT CPT-10887 Postop F/U Visit 10:58:43 CDT CPT-33854 Administration single or combination vac cine inc oral 12:33:54 DRAMA CRITIC CPT-29628 Influenza Preservative Free split virus >age 3 12:33:54 [employer]AMA CRITIC CPT-31067 Administration single or combination vac cine inc oral 09:30:51 CDT CPT-65969 Influenza split virus > age 3 09:30:51 CDT CPT-18952 Postop F/U Visit 15:14:53 CDT CPT-85153 Postop F/U Visit 13:50:14 CDT CPT-51344 Postop F/U Visit 13:34:52 CDT CPT-OV Office Visit 16:55:03 CDT CPT-99675 Donner of cervix w bx ECC 13:32:50 CDT 10/19 CPT-J1885 Toradol 60 mg (Ketorolac) 15:31:59 CDT 2011 CPT-J1885 Toradol 60 mg (Ketorolac) 15:23:54 CDT 2011 CPT-76159 Visit 11:34:37 DRAMA CRITIC CPT-32294 Visit 10:52:39 DRAMA CRITIC CPT-61780 Visit 10:12:02 DRAMA CRITIC CPT-37394 Visit 11:22:43 DRAMA CRITIC CPT-06388 Visit 11:24:12 DRAMA CRITIC CPT-95497 Visit 10:47:05 DRAMA CRITIC CPT-OV Office Visit 10:26:16 DRAMA CRITIC CPT-OV Office Visit 15:34:31 DRAMA CRITIC CPT-92397 Visit 10:42:08 DRAMA CRITIC CPT-66427 Visit 10:52:45 DRAMA CRITIC CPT-000 Give Appropriate Flu Vaccine 16:56:41 CDT 2 CPT-70751 Administration single or combination vac cine inc oral 10:33:21 CDT CPT-12720 Influenza split virus > age 3 10:33:21 CDT CPT-02966 Visit 13:23:09 CDT CPT-66035 Visit 18:24:52 CDT CPT-20910 Sono OB comp > 14 weeks 12:07:49 CDT 04/07
--- OUTSIDE RECORDS SUMMARY | 2020-01-18 16:09 | XMS REPORT | Clinical Summary ---
Author Author Admin, Jeri Rashid Organization [facility] Address Unknown Phone Unavailable Allergies, Adverse [...] unspecified SINUSITIS, ACUTE 461.9 Active Rajni Alcazar STAFF PHYSICAL THERAPIST Acute sinusitis, unspecified BACK PAIN 724.5 Resolved [...] in limb BRONCHITIS, ACUTE 466.0 Resolved Good espitai MD Acute bronchitis BACK PAIN 724.5 Resolved [...] apply q 6 hours, prn 08/03 LIDOCAINE [id number] No Longer Active Kalpesh Dong MD Active PERCOCET 10-325 MG TABS 1 tablet every 8 hours as needed for antonia n OXYCODONE-ACETAMINOPHEN 41744159608 No Longer Active Kalpesh Dong MD Active HYDROCODONE-ACETAMINOPHEN 5-325 MG TABS 1 tab by mouth every 6 hours as needed for pain HYDROCODONE-ACETAMINOPHEN 59098688320 No Longer Active Kalpesh Dong MD Active PERCOCET 10-325 MG ORAL TABS 1 every 4 hous as needed OXYCODONE-ACETAMINOPHEN 55680457294 Active Abdirahman Rios MD Active GLYDO 2 % EXT GEL apply to painful areas as needed LIDOCAINE HCL 22676462091 Active Kalpesh Dong MD Active LC-4 LIDOCAINE 4 % EXT CREA apply to painful area every 12 h ours or as needed LIDOCAINE 69285899376 Active Kalpesh Dong MD Active AUGMENTIN 875-125 MG TAB 1 tab by mouth twice daily with food 23/05/16 AMOXICILLIN-POT CLAVULANATE 03721256985 No Longer Active Lizeth hi Yokum STAFF PHYSICAL THERAPIST 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 FLUTICASONE PROPIONATE 68076669908 No Longer Ac tive Rajni Yokum STAFF PHYSICAL THERAPIST Active PERCOCET 10-325 MG ORAL TABS take 1 tab by mouth q 4hours as needed for pain OXYCODONE-ACETAMINOPHEN 91781566643 No Longer Active Rajni Yokum STAFF PHYSICAL THERAPIST Active PERCOCET 10-325 MG ORAL TABS one every 6 hours prn pain OXYCODONE-ACETAMINOPHEN 90280374618 No Longer Active Rajni Yokum STAFF PHYSICAL THERAPIST Active IBUPROFEN 800 MG TABS 1 tab po tid, with food I BUPROFEN 53879103398 Active Jillina Frazell STAFF PHYSICAL THERAPIST Active DICLOFENAC SODIUM 50 MG TBEC 1 tablet by mouth four times da tom PRN Pain DICLOFENAC SODIUM 65552611352 No Longer Active Rajni Yokum STAFF PHYSICAL THERAPIST Active VIIBRYD 10 & 20 & 40 MG KIT 1 po qd as directed 07/24 VILAZODONE HCL 88425328810 No Longer Active Rajni Yokum STAFF PHYSICAL THERAPIST Active ONDANSETRON 4 MG TBDP 1 q4h PRN nausea ONDANSET KELBY 93193567691 No Longer Active Rajni Yokum STAFF PHYSICAL THERAPIST Active PERCOCET 10-325 MG TABS 1 tablet every 8 hours as needed for antonia n OXYCODONE-ACETAMINOPHEN 50512000541 No Longer Active Rajni cox STAFF PHYSICAL THERAPIST Active HYDROCODONE-ACETAMINOPHEN 5-325 MG TABS 1 po TID PRN Pain 9 HYDROCODONE-ACETAMINOPHEN 49675524133 No Longer Active Abdirahman Rios MD Active [id number] 50-325-40 MG ORAL CAPS 1-2 po TID CO N Headache [id number] 51524760517 No Longer Act krishna Kalpesh Dong MD Active ALPRAZOLAM 0.5 MG TABS 1 po BID PRN Anxiety ALP RAZOLAM 02290259034 No Longer Active Kalpesh Dong MD Active TRAZODONE HCL 100 MG TAB 0.5 to 1 po qHS PRN Insomnia TRAZODONE HCL 29654281045 No Longer Active Kalpesh Dong MD Activ e HYDROCODONE-ACETAMINOPHEN 5-325 MG TABS 1 po q6hr PRN Pain 04/09 HYDROCODONE-ACETAMINOPHEN 71048181148 No Longer Active Kalpesh Dong MD Active CYMBALTA 30 MG CPEP 1 cap by mouth daily DULOXE CLEO HCL 30422712464 No Longer Active Abdirahman Rios MD Active IBUPROFEN 600 MG ORAL TABS 1 by mouth twice a day 2014 IBUPROFEN 00617816272 No Longer Active Abdirahman Rios MD Activ e PERCOCET 5-325 MG TAB 1 tab po q 6 hours, prn severe pain 1 OXYCODONE-ACETAMINOPHEN 11310496443 No Longer Active Abdirahman Rios MD Active SPRINTEC 28 0.25-35 MG-MCG TABS 1 pill by mouth daily for bi rth control NORGESTIMATE-ETH ESTRADIOL 05435180735 No Longer Acti ve Jillina Frazell STAFF PHYSICAL THERAPIST Active CYCLOBENZAPRINE HCL 10 MG TABS 1 tablet by mouth three times daily as needed for muscle spasm/pain CYCLOBENZAPRINE HCL 63438095230 No Longer Active Jillina Frazell STAFF PHYSICAL THERAPIST Active HYDROCODONE-ACETAMINOPHEN 5-325 MG TABS 1 po q6hr PRN Pain 03/09 HYDROCODONE-ACETAMINOPHEN 08935329119 No Longer Active Matthewllina Frazel l STAFF PHYSICAL THERAPIST Active AUGMENTIN 500-125 MG ORAL TABS 1 by mouth twice a day AMOXICILLIN-POT CLAVULANATE 82862490919 No Longer Active Jillina Frazell STAFF PHYSICAL THERAPIST Active DICLOFENAC SODIUM 50 MG TBEC 1 tablet by mouth four times da tom PRN Pain DICLOFENAC SODIUM 17254856286 No Longer Active Jillin a Joyzell STAFF PHYSICAL THERAPIST Active PROMETHAZINE HCL 25 MG TABS 1 four times a day as needed for nausea/vomiting PROMETHAZINE HCL 40371246796 No Longer Active Abdirahman Rios MD Active HYDROCODONE-ACETAMINOPHEN 5-325 MG TABS 1 tab by mouth every 6 hours as needed PRN Pain HYDROCODONE-ACETAMINOPHEN 95265914803 No Longer Active Abdirahman Rios MD Active GEMFIBROZIL 600 MG TABS 1 po BID GEMFIBROZIL 16537097 005 Active Abdirahman Rios MD Active PERCOCET 5-325 MG ORAL TABS 1 every 6 hours as needed OXYCODONE-ACETAMINOPHEN 22341681434 No Longer Active Abdirahman Rios MD Active PERCOCET 5-325 MG TAB 1 tab po q 6 -8 hours, prn for severe pain OXYCODONE-ACETAMINOPHEN 25526384323 No Longer Active Abdirahman Rios MD Active HYDROCODONE-ACETAMINOPHEN 5-325 MG TABS 1 po q6hr PRN pain 06/30 HYDROCODONE-ACETAMINOPHEN 60167839260 No Longer Active Hira roman STAFF PHYSICAL THERAPIST Active GLUCOPHAGE 500 MG ORAL TABS one by mouth 3 times a day METFORMIN HCL 47949984689 No Longer Active Matthewllina Karmenl STAFF PHYSICAL THERAPIST Ac tive PERCOCET 10-325 MG TABS 1 tab by mouth every 6 hours , use sparingly for severe pain OXYCODONE-ACETAMINOPHEN 81371256111 No Longer A ctive Abdirahman Rios MD Active EMLA 2.5-2.5 % EXT CREA apply to skin lesion q 6 hours, prn 2014 LIDOCAINE-PRILOCAINE 03610497891 No Longer Active Abdirahman Rios MD Active PERCOCET 10-325 MG ORAL TABS 1 every 4 hours as needed OXYCODONE-ACETAMINOPHEN 29774937813 No Longer Active Abdirahman Rios MD Active AUGMENTIN 875-125 MG TAB 1 tab by mouth twice daily with food 20 21/10/13 AMOXICILLIN-POT CLAVULANATE 77015861894 No Longer Active Ursula Moser APRN Active PROAIR HFA 108 (90 BASE) MCG/ACT AERS 2 puff q 4-6 hrs PRN 01/24 ALBUTEROL SULFATE 60275572736 No Longer Active Kalpesh Dong MD Active PREDNISONE 20 MG TAB 2 tabs daily for 3 days, 1 t ab daily for 3 days, 1/2 tab daily for 2 days PREDNISONE 76029899900 No Longer Active Abdirahman Rios MD Active KEFLEX 500 MG CAP 1 po qid CEPHALEXIN 145750431 20 No Longer Active Kalpesh Dong MD Active PERCOCET 5-325 MG TAB 1 every 6 hours as needed OXYCODONE-ACETAMINOPHEN 21710585072 No Longer Active Shola MCGILL Active LC-5 LIDOCAINE 5 % CREA apply 1 time daily to affected area 2013 LIDOCAINE (ANORECTAL) 07802346071 No Longer Active Jillina F razell STAFF PHYSICAL THERAPIST Active HYDROCODONE-ACETAMINOPHEN 10-325 MG TABS 1 by mouth ev chaka 8 hours as needed for pain HYDROCODONE-ACETAMINOPHEN 66904698276 No Longer Active Jillina Frazell STAFF PHYSICAL THERAPIST Active LORATADINE 10 MG TABS 1 tablet by mouth daily L ORATADINE 14477628174 No Longer Active Jillina Frazell STAFF PHYSICAL THERAPIST Active DIFLUCAN 150 MG TAB 1 qODay x 2 doses FLUCONAZO LE 48063656064 No Longer Active Jillina Frazell STAFF PHYSICAL THERAPIST Active CYCLOBENZAPRINE HCL 10 MG TABS 1/2 - 1 tab PO tid PRN back p ain, muscle spasm CYCLOBENZAPRINE HCL 21888952417 No Longer Active Karen siri Frazell STAFF PHYSICAL THERAPIST Active AUGMENTIN 875-125 MG TAB 1 tab by mouth twice daily with food 20 22/05/07 AMOXICILLIN-POT CLAVULANATE 77360627430 No Longer Active Loida Rios MD Active MOBIC 15 MG TABS 1 tab daily MELOXICAM 173102456 14 No Longer Active Abdirahman Rios MD Active PERCOCET 7.5-325 MG TABS 1 PO tid PRN pain OXYCODONE-ACETAMINOPHEN 50155681813 No Longer Active Abdirahman Rios MD Active LIDODERM 5 % PTCH One patch to painful area CO N. On for 12 hrs, off for 12 hrs. LIDOCAINE 59235817153 No Longer Active Abdirahman Rios MD Active PERCOCET 7.5-325 MG TABS 1 PO q 8 hrs PRN pain OXYCODONE-ACETAMINOPHEN 50156474174 No Longer Active Shola MCGILL Active HYDROCODONE-ACETAMINOPHEN 7.5-325 MG TABS 1 by mouth e very 6 hours as needed for pain HYDROCODONE-ACETAMINOPHEN 84136457405 No Longer Active Good Julian MD Active CLINDAMYCIN HCL 300 MG CAPS 1 po QID x 7 days CLINDAMYCIN HCL 22419197768 No Longer Active Abdirahman Rios MD Activ e BACTRIM DS 800-160 MG TABS 1 po BID x 7 days 5 SULFAMETHOXAZOLE-TRIMETHOPRIM 00181054661 No Longer Active Abdirahman Rios MD Active ENDOCET 10-325 MG TABS 1 q 6 hr prn OXYCODONE-ACETAMINOPHEN 85899783271 No Longer Active Abdirahman Rios MD Active IBUPROFEN 800 MG TABS 1 tid prn IBUPROFEN 075759 60324 No Longer Active Abdirahman Rios MD Active BACTRIM DS 800-160 MG TABS by mouth twice a day 11/05 SULFAMETHOXAZOLE-TRIMETHOPRIM 02318630227 No Longer Active Good Julian MD Active HYDROCODONE-ACETAMINOPHEN 7.5-325 MG TABS 1 four times a day as needed for pain HYDROCODONE-ACETAMINOPHEN 12437873747 No Longer Activ e Good Julian MD Active KEFLEX 500 MG CAP 1 tab po tid CEPHALEXIN 215435 30120 No Longer Active Hira Moser APRN Active IBUPROFEN 800 MG TAB 1 pill three times daily as needed for pain IBUPROFEN 43763789488 No Longer Active Kalpesh Dong MD Active PROMETHAZINE-CODEINE 6.25-10 MG/5ML SYRP 1 tsp every 6 hrs prn c ough PROMETHAZINE-CODEINE 16740398702 No Longer Active Kalpesh Carr Active HYDROCODONE-ACETAMINOPHEN 5-325 MG TABS 1 tab by mouth every 6 hours as needed HYDROCODONE-ACETAMINOPHEN 28265425753 No Longer Activ e Shola MCGILL Active CEPHALEXIN 500 MG CAPS 1 PO bid x 7 days CEPHAL EXIN 02876510779 No Longer Active Shola MCGILL Active BACTRIM DS 800-160 MG TAB 1 tab by mouth twice daily 2 TRIMETHOPRIM-SULFAMETHOXAZOLE 59669777742 No Longer Active Kalpesh Dong MD Active HYDROCODONE-ACETAMINOPHEN 5-325 MG TABS 1 PO tid PRN pain 5 HYDROCODONE-ACETAMINOPHEN 42030629084 No Longer Active Abhinav Galvan MD Active IMPLANON 68 MG IMPL IMPLANTED IN LEFT ARM ETONO GESTREL 69161810864 No Longer Active Hira Moser APRN Active AMOXICILLIN 500 MG TABS 2 tabs PO bid x 10 d AM OXICILLIN 90177044747 No Longer Active Kalpesh Dong MD Active LEVAQUIN 500 MG TABS 1 PO q day x 7 days LEVOFL OXACIN 27610598553 No Longer Active Shola MCGILL Active AMITRIPTYLINE HCL 25 MG TAB 1 tab by mouth daily 60 minutes before bedtime AMITRIPTYLINE HCL 89796704565 No Longer Active Shola MCGILL Active LORTAB 5 5-500 MG TABS 1/2 to 1 tablet by mouth go ry 6 hours as needed for pain HYDROCODONE-ACETAMINOPHEN 14505871801 No Longer Active Shola MCGILL Active CEPHALEXIN 500 MG TABS Take one by mouth four times daily, morning, noon, early evening and bedtime. CEPHALEXIN 61026198916 No Long er Active Hira Moser APRN Active TYLENOL/CODEINE #3 300-30 MG TAB 1-2 po q6hr PRN Pain ACETAMINOPHEN-CODEINE 13802093983 No Longer Active Edilberto Marino DO Active PRISTIQ 50 MG QV91Q-SAL 1 po qd DESVENLAFAXI NE SUCCINATE 64636077487 No Longer Active Edilberto Marino DO Active PENICILLIN V POTASSIUM 500 MG TAB 1 four times a day 2 PENICILLIN V POTASSIUM 32778960473 No Longer Active Edilberto Marino DO Active DOXYCYCLINE HYCLATE 100 MG CAPS Take one (1) tablet by mouth twice a day DOXYCYCLINE HYCLATE 59961530535 No Longer Active Ronnie Galvan MD Active HYDROCODONE-ACETAMINOPHEN 5-325 MG TABS 1 po q 6hr PRN Pain 2011 HYDROCODONE-ACETAMINOPHEN 17117131914 No Longer Active Rosari joan Perez RN Active BACTRIM DS 800-160 MG TAB 1 tab by mouth twice daily 2 TRIMETHOPRIM-SULFAMETHOXAZOLE 82723241640 No Longer Active Kalpesh Dong MD Active LORTAB 5 5-500 MG TABS 1/2 to 1 tablet by mouth go ry 4 hours as needed for pain HYDROCODONE-ACETAMINOPHEN 89123530768 No Longer Active Kalpesh Dong MD Active GENERESS FE 0.8-25 MG-MCG CHEW Take one by mouth daily NORETHIN-ETH ESTRADIOL-FE 87530783601 No Longer Active Kalpesh Dong MD Active HYDROCODONE-ACETAMINOPHEN 7.5-500 MG TABS 1-2 every 4 hours as needed HYDROCODONE-ACETAMINOPHEN 76473956475 No Longer Activ e Kalpesh Dong MD Active FERROUS SULFATE 325 (65 FE) MG TABS 1 tablet by mouth twice yung y FERROUS SULFATE 71391863420 No Longer Active Kalpesh Dong MD Active IBUPROFEN 600 MG TAB 1 po q6-8hr PRN IBUPROFEN 66689560027 No Longer Active Kalpesh Dong MD Active SPIRONOLACTONE 25 MG TAB 1 tablet by mouth daily 01/22 SPIRONOLACTONE 11583492300 No Longer Active Kalpesh Dong MD Acti ve HYDROCODONE-ACETAMINOPHEN 7.5-325 MG TABS 1 po QID PRN Pain 2011 HYDROCODONE-ACETAMINOPHEN 01177868752 No Longer Active Kalpesh Dong MD Active CLINDAMYCIN HCL 300 MG CAPS 1 po q6hr x 7 days CLINDAMYCIN HCL 61769661124 No Longer Active Edilberto Marino DO Active PREDNISONE 20 MG TAB 2 tabs daily for 4 days, 1 t ab daily for 4 days, 1/2 tab daily for 4 days PREDNISONE 92073128017 No Longer Active Edilberto Marino DO Active PERCOCET 5-325 MG TABS 1 tablet by mouth every 6 hours as ne eded for pain OXYCODONE-ACETAMINOPHEN 89932429235 No Longer Active Abdirahman Rios MD Active VITAMINS TABS Take one by mouth daily MV & MIN W/FE-FA TABS 06509679564 No Longer Active Abdirahman Rios MD Active LUIS 3-0.02 MG TABS 1 tablet by mouth daily as directed DROSPIRENONE-ETHINYL ESTRADIOL 43472533875 No Longer Active Abdirahman Rios MD Active LORATADINE 10 MG TABS 1 tablet by mouth daily L ORATADINE 32902141235 No Longer Active Kalpesh Dong MD Active HYDROCODONE-ACETAMINOPHEN 5-325 MG TABS 1 po q 6hr PRN Pain 2010 HYDROCODONE-ACETAMINOPHEN 04797507425 No Longer Active Edilberto Marino DO Active BACTRIM DS 800-160 MG TAB 1 tab by mouth twice daily 2 TRIMETHOPRIM-SULFAMETHOXAZOLE 56007421491 No Longer Active Abdirahman Rios MD Active 28-0.8 MG TABS Take one by mouth daily 09/20 VIT-FE FUMARATE-FA 03565556522 No Longer Active Abdirahman Rios MD Active CIPRO 500 MG TAB 1 tablet by mouth twice daily CIPROFLOXACIN HCL 22847827416 No Longer Active Abdirahman Rios MD Active BENADRYL 25 MG CAP 1 po q8hr PRN Congestion DIPHENHYDRAMINE HCL 01747503871 No Longer Active Abdirahman Rios MD Active ZOLOFT 50 MG TAB 1 po qd SERTRALINE HCL 649935 86771 No Longer Active Abdirahman Rios MD Active AMOXICILLIN 875 MG TABS 1 tab by mouth twice daily 201 08/09/13 AMOXICILLIN 42960442828 No Longer Active Abdirahman Rios MD Activ e AMOXICILLIN 875 MG TABS 1 tab by mouth twice daily 201 07/19/27 AMOXICILLIN 88944341288 No Longer Active Abdirahman Rios MD Activ e BACTRIM DS 800-160 MG TAB 2 tab by mouth twice daily 2 TRIMETHOPRIM-SULFAMETHOXAZOLE 27081042780 No Longer Active Abdirahman Rios MD Active KEFLEX 500 MG CAP 1 po tid x 10 days CEPHALEXIN 32378528829 No Longer Active Abdirahman Rios MD Active AMOXICILLIN 875 MG TABS 1 tab by mouth twice daily 201 07/18/07 AMOXICILLIN 31908179395 No Longer Active Abdirahman Rios MD Activ e BACTRIM DS 800-160 MG TAB 2 tab by mouth twice daily 2 BACTRIM DS 800-160 MG TAB 850216 TRIMETHOPRIM-SULFAMETHOXAZOLE Inactive ZOLOFT 50 MG TAB 1 po qd ZOLOFT 50 MG TAB 3129 41 SERTRALINE HCL Inactive BENADRYL 25 MG CAP 1 po q8hr PRN Congestion BENADRYL 25 MG CAP 7574862 DIPHENHYDRAMINE HCL Inactive 28-0.8 MG TABS Take one by mouth daily 09/20 28-0.8 MG TABS VIT-FE FUMARATE-FA Inactive HYDROCODONE-ACETAMINOPHEN 5-325 MG TABS 1 po q 6hr PRN Pain 2010 HYDROCODONE-ACETAMINOPHEN 5-325 MG TABS 710992 HYDROCODONE-ACETAMINOPHEN Inactive LORATADINE 10 MG TABS 1 tablet by mouth daily LORATADINE 10 MG TABS 785870 LORATADINE Inactive LUIS 3-0.02 MG TABS 1 tablet by mouth daily as directed LUIS 3-0.02 MG TABS 468504 DROSPIRENONE-ETHINYL ESTRADIOL Inactive VITAMINS TABS Take one by mouth daily VITAMINS TABS MV & MIN W/FE-FA TABS Inactive PERCOCET 5-325 MG TABS 1 tablet by mouth every 6 hours as ne eded for pain PERCOCET 5-325 MG TABS 6469154 OXYCODONE-ACETAMIN OPHEN Inactive PREDNISONE 20 MG TAB 2 tabs daily for 4 days, 1 t ab daily for 4 days, 1/2 tab daily for 4 days PREDNISONE 20 MG TAB 990754 PREDNISON E Inactive CLINDAMYCIN HCL 300 MG CAPS 1 po q6hr x 7 days CLINDAMYCIN HCL 300 MG CAPS 911042 CLINDAMYCIN HCL Inactive HYDROCODONE-ACETAMINOPHEN 7.5-325 MG TABS 1 po QID PRN Pain 2011 HYDROCODONE-ACETAMINOPHEN 7.5-325 MG TABS 763008 HYDROCODONE-ACETAMINOPHEN Inactive SPIRONOLACTONE 25 MG TAB 1 tablet by mouth daily 01/22 SPIRONOLACTONE 25 MG TAB 602645 SPIRONOLACTONE Inactive IBUPROFEN 600 MG TAB 1 po q6-8hr PRN IBUPROFEN 600 MG TAB 067930 IBUPROFEN Inactive FERROUS SULFATE 325 (65 FE) MG TABS 1 tablet by mouth twice yung y FERROUS SULFATE 325 (65 FE) MG TABS 484636 FERROUS SULF ATE Inactive HYDROCODONE-ACETAMINOPHEN 7.5-500 MG TABS 1-2 every 4 hours as needed HYDROCODONE-ACETAMINOPHEN 7.5-500 MG TABS HYDROCODONE-ACETAMINOPHEN Inactive GENERESS FE 0.8-25 MG-MCG CHEW Take one by mouth daily GENERESS FE 0.8-25 MG-MCG CHEW 1380775 NORETHIN-ETH ESTRADIOL-FE Inactive LORTAB 5 5-500 MG TABS 1/2 to 1 tablet by mouth go ry 4 hours as needed for pain LORTAB 5 5-500 MG TABS HYDROCODONE-A CETAMINOPHEN Inactive BACTRIM DS 800-160 MG TAB 1 tab by mouth twice daily 2 BACTRIM DS 800-160 MG TAB 115070 TRIMETHOPRIM-SULFAMETHOXAZOLE Inac tive HYDROCODONE-ACETAMINOPHEN 5-325 MG TABS 1 po q 6hr PRN Pain 2011 HYDROCODONE-ACETAMINOPHEN 5-325 MG TABS 153894 HYDROCODONE-ACETAMINOPHEN Inactive DOXYCYCLINE HYCLATE 100 MG CAPS Take one (1) tablet by mouth twice a day DOXYCYCLINE HYCLATE 100 MG CAPS 8167190 DOXYCYCLINE HYCLATE Inactive PENICILLIN V POTASSIUM 500 MG TAB 1 four times a day 2 PENICILLIN V POTASSIUM 500 MG TAB 117919 PENICILLIN V POTASSIUM [place] ctive PRISTIQ 50 MG [id number] 1 po qd PRISTIQ 50 MG [id number] DESVENLAFAXINE SUCCINATE Inactive TYLENOL/CODEINE #3 300-30 MG TAB 1-2 po q6hr PRN Pain TYLENOL/CODEINE #3 300-30 MG TAB 404225 ACETAMINOPHEN-CODEINE Inact krishna CEPHALEXIN 500 MG TABS Take one by mouth four times daily, morning, noon, early evening and bedtime. CEPHALEXIN 500 MG TABS 762756 CEPHALEXIN Inactive LORTAB 5 5-500 MG TABS 1/2 to 1 tablet by mouth go ry 6 hours as needed for pain LORTAB 5 5-500 MG TABS HYDROCODONE-A CETAMINOPHEN Inactive AMITRIPTYLINE HCL 25 MG TAB 1 tab by mouth daily 60 minutes before bedtime AMITRIPTYLINE HCL 25 MG TAB 073835 AMITRIPTYLINE HCL Inactive AMOXICILLIN 500 MG TABS 2 tabs PO bid x 10 d 7 AMOXICILLIN 500 MG TABS 108898 AMOXICILLIN Inactive IMPLANON 68 MG IMPL IMPLANTED IN LEFT ARM IMPLANON 68 MG IMPL ETONOGESTREL Inactive HYDROCODONE-ACETAMINOPHEN 5-325 MG TABS 1 PO tid PRN pain 5 HYDROCODONE-ACETAMINOPHEN 5-325 MG TABS 911322 HYDROCODONE-ACETAMIN OPHEN Inactive BACTRIM DS 800-160 MG TAB 1 tab by mouth twice daily 2 BACTRIM DS 800-160 MG TAB 714155 TRIMETHOPRIM-SULFAMETHOXAZOLE Inac tive CEPHALEXIN 500 MG CAPS 1 PO bid x 7 days CEPHALEXIN 500 MG CAPS 279840 CEPHALEXIN Inactive HYDROCODONE-ACETAMINOPHEN 5-325 MG TABS 1 tab by mouth every 6 hours as needed HYDROCODONE-ACETAMINOPHEN 5-325 MG TABS 303494 HYDROCODONE-ACETAMINOPHEN Inactive PROMETHAZINE-CODEINE 6.25-10 MG/5ML SYRP 1 tsp every 6 hrs prn c ough PROMETHAZINE-CODEINE 6.25-10 MG/5ML SYRP 408092 PROMETH AZINE-CODEINE Inactive IBUPROFEN 800 MG TAB 1 pill three times daily as needed for pain IBUPROFEN 800 MG TAB 855083 IBUPROFEN Inactive KEFLEX 500 MG CAP 1 tab po tid KEFLEX 500 MG CAP 327172 CEPHALEXIN Inactive HYDROCODONE-ACETAMINOPHEN 7.5-325 MG TABS 1 four times a day as needed for pain HYDROCODONE-ACETAMINOPHEN 7.5-325 MG TABS 434320 HYDROCODONE-ACETAMINOPHEN Inactive BACTRIM DS 800-160 MG TABS by mouth twice a day 11/05 BACTRIM DS 800-160 MG TABS 528450 SULFAMETHOXAZOLE-TRIMETHOPRIM Inactive IBUPROFEN 800 MG TABS 1 tid prn IBUPROFEN 800 MG TABS 288340 IBUPROFEN Inactive ENDOCET 10-325 MG TABS 1 q 6 hr prn ENDOC ET 10-325 MG TABS 2746769 OXYCODONE-ACETAMINOPHEN Inactive HYDROCODONE-ACETAMINOPHEN 7.5-325 MG TABS 1 by mouth e very 6 hours as needed for pain HYDROCODONE-ACETAMINOPHEN 7.5-325 MG TABS 214992 HYDROCODONE-ACETAMINOPHEN Inactive PERCOCET 7.5-325 MG TABS 1 PO q 8 hrs PRN pain PERCOCET 7.5-325 MG TABS 5888149 OXYCODONE-ACETAMINOPHEN Inactive LIDODERM 5 % PTCH One patch to painful area CO N. On for 12 hrs, off for 12 hrs. LIDODERM 5 % [facility] 9508716 LIDOCAINE Inactiv e PERCOCET 7.5-325 MG TABS 1 PO tid PRN pain PERCOCET 7.5- 325 MG TABS 1076422 OXYCODONE-ACETAMINOPHEN Inactive MOBIC 15 MG TABS 1 tab daily MOBIC 15 MG TABS 15 2695 MELOXICAM Inactive CYCLOBENZAPRINE HCL 10 MG TABS 1/2 - 1 tab PO tid PRN back p ain, muscle spasm CYCLOBENZAPRINE HCL 10 MG TABS 685944 CYCLOBENZA JOSEPH HCL Inactive LORATADINE 10 MG TABS 1 tablet by mouth daily LORATADINE 10 MG TABS 258145 LORATADINE Inactive HYDROCODONE-ACETAMINOPHEN 10-325 MG TABS 1 by mouth ev chaka 8 hours as needed for pain HYDROCODONE-ACETAMINOPHEN 10-325 MG TABS 117101 HYDROCODONE-ACETAMINOPHEN Inactive LC-5 LIDOCAINE 5 % CREA apply 1 time daily to affected area 2013 LC-5 LIDOCAINE 5 % CREA 6554492 LIDOCAINE (ANORECTAL) In active PERCOCET 5-325 MG TAB 1 every 6 hours as needed PERCOCET 5-325 MG TAB 6505776 OXYCODONE-ACETAMINOPHEN Inactive KEFLEX 500 MG CAP 1 po qid KEFLEX 500 MG CAP 30 9114 CEPHALEXIN Inactive PROAIR HFA 108 (90 BASE) MCG/ACT AERS 2 puff q 4-6 hrs PRN 01/24 PROAIR HFA 108 (90 BASE) MCG/ACT AERS ALBUTEROL SULFATE Inactive PERCOCET 10-325 MG ORAL TABS 1 every 4 hours as needed PERCOCET 10-325 MG ORAL TABS 4308996 OXYCODONE-ACETAMINOPHEN Inactiv e EMLA 2.5-2.5 % EXT CREA apply to skin lesion q 6 hours, prn 2014 EMLA 2.5-2.5 % EXT CREA 673911 LIDOCAINE-PRILOCAINE Siri ctive PERCOCET 10-325 MG TABS 1 tab by mouth every 6 hours , use sparingly for severe pain PERCOCET 10-325 MG TABS 7067123 OXYCODONE-ACETAMINOPHEN Inactive GLUCOPHAGE 500 MG ORAL TABS one by mouth 3 times a day GLUCOPHAGE 500 MG ORAL TABS 632577 METFORMIN HCL Inactive HYDROCODONE-ACETAMINOPHEN 5-325 MG TABS 1 po q6hr PRN pain 06/30 HYDROCODONE-ACETAMINOPHEN 5-325 MG TABS 182808 HYDROCOD ONE-ACETAMINOPHEN Inactive PERCOCET 5-325 MG TAB 1 tab po q 6 -8 hours, prn for severe pain PERCOCET 5-325 MG TAB 9494667 OXYCODONE-ACETAMINOPHEN In active PERCOCET 5-325 MG ORAL TABS 1 every 6 hours as needed PERCOCET 5-325 MG ORAL TABS 3176630 OXYCODONE-ACETAMINOPHEN Inactive DICLOFENAC SODIUM 50 MG TBEC 1 tablet by mouth four times da tom PRN Pain DICLOFENAC SODIUM 50 MG TBEC 782394 DICLOFENAC S ODIUM Inactive AUGMENTIN 500-125 MG ORAL TABS 1 by mouth twice a day AUGMENTIN 500-125 MG ORAL TABS [id number] AMOXICILLIN-POT CLAVULANATE I nactive HYDROCODONE-ACETAMINOPHEN 5-325 MG TABS 1 po q6hr PRN Pain 03/09 HYDROCODONE-ACETAMINOPHEN 5-325 MG TABS [id number] HYDROCOD ONE-ACETAMINOPHEN Inactive CYCLOBENZAPRINE HCL 10 MG TABS 1 tablet by mouth three times daily as needed for muscle spasm/pain CYCLOBENZAPRINE HCL 10 MG TABS [id number] CYCLOBENZAPRINE HCL Inactive SPRINTEC 28 0.25-35 MG-MCG TABS 1 pill by mouth daily for bi rth control SPRINTEC 28 0.25-35 MG-MCG TABS [id number] NORGESTIMATE-ETH ESTRADIOL Inactive PERCOCET 5-325 MG TAB 1 tab po q 6 hours, prn severe pain PERCOCET 5-325 MG TAB [id number] OXYCODONE-ACETAMINOPHEN Inactive IBUPROFEN 600 MG ORAL TABS 1 by mouth twice a day 2014 IBUPROFEN 600 MG ORAL TABS [id number] IBUPROFEN Inactive CYMBALTA 30 MG CPEP 1 cap by mouth daily CYMBALTA 30 MG CPEP [id number] DULOXETINE HCL Inactive HYDROCODONE-ACETAMINOPHEN 5-325 MG TABS 1 po q6hr PRN Pain 04/09 HYDROCODONE-ACETAMINOPHEN 5-325 MG TABS [id number] HYDROCOD ONE-ACETAMINOPHEN Inactive TRAZODONE HCL 100 MG TAB 0.5 to 1 po qHS PRN Insomnia TRAZODONE HCL 100 MG TAB [id number] TRAZODONE HCL Inactive ALPRAZOLAM 0.5 MG TABS 1 po BID PRN Anxiety ALPRAZOLAM 0.5 MG TABS [id number] ALPRAZOLAM Inactive [id number] 50-325-40 MG ORAL CAPS 1-2 po TID CO N Headache [id number] 50-325-40 MG ORAL CAPS 2 23953 [id number] Inactive HYDROCODONE-ACETAMINOPHEN 5-325 MG TABS 1 po TID PRN Pain 9 HYDROCODONE-ACETAMINOPHEN 5-325 MG TABS [id number] HYDROCODONE-ACETAMIN OPHEN Inactive PERCOCET 10-325 MG TABS 1 tablet every 8 hours as needed for antonia n PERCOCET 10-325 MG TABS [id number] OXYCODONE-ACETAMINOPHEN Inactive ONDANSETRON 4 MG TBDP 1 q4h PRN nausea ON DANSETRON 4 MG TBDP [id number] ONDANSETRON Inactive VIIBRYD 10 & 20 & 40 MG KIT 1 po qd as directed 07/24 VIIBRYD 10 & 20 & 40 MG KIT VILAZODONE HCL Inactive DICLOFENAC SODIUM 50 MG TBEC 1 tablet by mouth four times da tom PRN Pain DICLOFENAC SODIUM 50 MG TBEC [id number] DICLOFENAC S ODIUM Inactive PERCOCET 10-325 MG ORAL TABS one every 6 hours prn pain PERCOCET 10-325 MG ORAL TABS [id number] OXYCODONE-ACETAMINOPHEN Inactiv e PERCOCET 10-325 MG ORAL TABS take 1 tab by mouth q 4hours as needed for pain PERCOCET 10-325 MG ORAL TABS [id number] OXYCODONE-ACETAMINOPHEN Inactive FLONASE ALLERGY RELIEF 50 MCG/ACT NASAL SUSP One spray in each nostril twice a day. FLONASE ALLERGY RELIEF 50 MCG/ACT NASAL S LONGTERM [id number] FLUTICASONE PROPIONATE Inactive AUGMENTIN 875-125 MG TAB 1 tab by mouth twice daily with food 20 23/05/16 AUGMENTIN 875-125 MG TAB [id number] AMOXICILLIN-POT [place] Inactive HYDROCODONE-ACETAMINOPHEN 5-325 MG TABS 1 tab by mouth every 6 hours as needed for pain HYDROCODONE-ACETAMINOPHEN 5-325 MG TABS 8 54491 HYDROCODONE-ACETAMINOPHEN Inactive PERCOCET 10-325 MG TABS 1 tablet every 8 hours as needed for antonia n PERCOCET 10-325 MG TABS [id number] OXYCODONE-ACETAMINOPHEN Inactive LC-4 LIDOCAINE 4 % EXT CREA apply q 6 hours, prn 08/03 LC-4 LIDOCAINE 4 % EXT CREA [id number] LIDOCAINE Inactive AMOXICILLIN 875 MG TABS 1 tab by mouth twice daily 201 07/18/07 AMOXICILLIN 875 MG TABS 274892 AMOXICILLIN Inactive KEFLEX 500 MG CAP 1 po tid x 10 days KEFLEX 500 MG CAP 271649 CEPHALEXIN Inactive AMOXICILLIN 875 MG TABS 1 tab by mouth twice daily 201 07/19/27 AMOXICILLIN 875 MG TABS 607084 AMOXICILLIN Inactive AMOXICILLIN 875 MG TABS 1 tab by mouth twice daily 201 08/09/13 AMOXICILLIN 875 MG TABS 068516 AMOXICILLIN Inactive CIPRO 500 MG TAB 1 tablet by mouth twice daily CIPRO 500 MG TAB 030971 CIPROFLOXACIN HCL Inactive BACTRIM DS 800-160 MG TAB 1 tab by mouth twice daily 2 BACTRIM DS 800-160 MG TAB 651165 TRIMETHOPRIM-SULFAMETHOXAZOLE Inac tive LEVAQUIN 500 MG TABS 1 PO q day x 7 days LEVAQUIN 500 MG TABS 350259 LEVOFLOXACIN Inactive CLINDAMYCIN HCL 300 MG CAPS 1 po QID x 7 days CLINDAMYCIN HCL 300 MG CAPS 994662 CLINDAMYCIN HCL Inactive AUGMENTIN 875-125 MG TAB 1 tab by mouth twice daily with food 20 22/05/07 AUGMENTIN 875-125 MG TAB 327573 AMOXICILLIN-POT [place] Inactive DIFLUCAN 150 MG TAB 1 qODay x 2 doses DIFLUCAN 150 MG TAB 370908 FLUCONAZOLE Inactive PREDNISONE 20 MG TAB 2 tabs daily for 3 days, 1 t ab daily for 3 days, 1/2 tab daily for 2 days PREDNISONE 20 MG TAB 001422 PREDNISON E Inactive AUGMENTIN 875-125 MG TAB 1 tab by mouth twice daily with food 20 21/10/13 AUGMENTIN 875-125 MG TAB 771750 AMOXICILLIN-POT [place] Inactive HYDROCODONE-ACETAMINOPHEN 5-325 MG TABS 1 tab by mouth every 6 hours as needed PRN Pain HYDROCODONE-ACETAMINOPHEN 5-325 MG TABS 8 78109 HYDROCODONE-ACETAMINOPHEN Inactive PROMETHAZINE HCL 25 MG TABS 1 four times a day as needed for nausea/vomiting PROMETHAZINE HCL 25 MG TABS 988022 PROMETHAZINE HCL Inactive Advance Directives Directive Description Start Date PERMISSION TO SHARE Immunizations Vaccine Administration Date Value Standard Alf cription Seasonal influenza vaccine, injectable, containing preservative, for > 3 years old (Afluria, FluLaval, Fluzone, Fluvirin, Fluarix, Agriflu(>= 18 yo)) Fluzone (>3 yrs.) [[id number]] Influenza, seasonal, inject able Seasonal influenza vaccine, injectable, preservative free, for > 3 years old (Afluria, FluLaval, Fluzone, Fluvirin, Fluarix, Agriflu(>= 18 yo)) Fluzone preservative free (>3 yrs.) [[id number]] Influenza, seasonal, injectable, preservative free Seasonal influenza vaccine, injectable, containing preservative, for > 3 years old (Afluria, FluLaval, Fluzone, Fluvirin, Fluarix, Agriflu(>= 18 yo)) Fluzone (>3 yrs.) [[id number]] Influenza, seasonal, inject able Seasonal influenza vaccine, injectable, containing preservative, for > 3 years old (Afluria, FluLaval, Fluzone, Fluvirin, Fluarix, Agriflu(>= 18 yo)) Fluzone (>3 yrs.) [[id number]] Influenza, seasonal, inject able dT (Diphtheria and Tetanus) booster given Histor ica Td(adult) unspecified formulation Vital Signs Date Name Value Unit Range Description blood pressure, diastolic, standing 86 mm[Hg] BP [...] - 3141-9 224 [lb_av] Weigh t Measured Diagnostic Results Date [...] Panel - Chemistry sodium, serum 142 mmol/L 070-867 1433/05/12 potassium, serum 4.8 mmol/L 3.5-5.2 chloride, serum [...] Panel - Chemistry cholesterol, serum 165 mg/dL 060-384 9814/05/12 triglyceride, serum, fasting 524 mg/dL 30-200 HDL cholesterol, serum 24 mg/dL 32-96 cholesterol, serum 181 mg/dL 366-090 0289/09/01 triglyceride, serum, fasting 341 mg/dL 30-200 HDL [...] negative Encounters Code Encounter Date Provider Facility CPT-30702 Level 3 Est. Patient 21:00:18 SALES ACCOUNT ASSOCIATE Rajni danielson [facility] CPT-80324 Level 3 Est. Patient 14:15:00 SALES ACCOUNT ASSOCIATE Kalpesh goins MD [facility] CPT-30332 Level 2 Est. Patient 19:57:52 SALES ACCOUNT ASSOCIATE Rajni danielson [facility] CPT-30825 Level 3 Est. Patient 16:58:40 SALES ACCOUNT ASSOCIATE Bj funes MD [facility] CPT-61472 Level 3 Est. Patient 08:51:33 CDT Kalpesh goins MD [facility] CPT-17837 Level 4 Est. Patient 14:14:53 CDT Abdirahman Rios MD [facility] CPT-00107 Level 3 Est. Patient 15:47:40 CDT Kalpesh goins MD [facility] CPT-69148 Level 3 Est. Patient 10:57:26 CDT Abdirahman Rios MD [facility] CPT-89509 Level 3 Est. Patient 14:29:53 CDT Abhinav Galvan MD [facility] CPT-37989 Level 2 Est. Patient 16:33:01 CDT Kalpesh goins MD [facility] CPT-75436 Level 4 Est. Patient 16:44:56 CDT Abdirahman Rios MD [facility] CPT-78954 Level 2 Est. Patient 07:49:32 CDT Kalpesh goins MD [facility] CPT-61989 Level 3 New Patient 15:47:11 SALES ACCOUNT ASSOCIATE Bj huber MD [facility] CPT-77880 Level 4 Est. Patient 14:37:38 SALES ACCOUNT ASSOCIATE Abdirahman Rios MD [facility] CPT-43359 Level 2 Est. Patient 13:32:17 SALES ACCOUNT ASSOCIATE Kalpesh goins MD [facility]-23978 Level 3 Est. Patient 17:32:57 SALES ACCOUNT ASSOCIATE Edilberto tiwari [facility] CPT-88748 Level 3 Est. Patient 17:22:33 SALES ACCOUNT ASSOCIATE Edilberto tiwari [facility] CPT-49178 Level 2 Est. Patient 16:57:09 SALES ACCOUNT ASSOCIATE Kalpesh goins MD [facility] CPT-59976 Level 3 Est. Patient 14:03:08 SALES ACCOUNT ASSOCIATE Abdirahman Rios MD [facility] CPT-68168 Level 3 Est. Patient 18:12:34 CDT Shola Wright [facility] CPT-50790 Level 3 Est. Patient 19:34:46 CDT Shola Wright [facility] CPT-81941 Level 3 Est. Patient 14:19:37 CDT Abdirahman Rios MD [facility] CPT-35621 Level 3 Est. Patient 14:11:58 CDT Kalpesh goins MD [facility]-52689 Level 3 Est. Patient 16:50:00 CDT Michelle MERCADO [facility] CPT-01849 Level 3 Est. Patient 17:11:32 SALES ACCOUNT ASSOCIATE Brandie bates MD PhD [facility] CPT-27292 Level 3 Est. Patient 16:31:47 SALES ACCOUNT ASSOCIATE Shola Wright [facility] CPT-65025 Level 3 Est. Patient 17:51:10 SALES ACCOUNT ASSOCIATE Abhinav Galvan MD [facility] CPT-85380 Level 4 Est. Patient 12:54:56 SALES ACCOUNT ASSOCIATE Kalpesh goins MD [facility]-57301 Level 4 Est. Patient 12:53:56 SALES ACCOUNT ASSOCIATE Kalpesh goins MD [facility] CPT-82606 Level 3 Est. Patient 17:56:58 CDT Shola Keesha Francesabi [facility] CPT-10014 Level 3 Est. Patient 14:26:20 CDT Janak Stevenamira [facility] CPT-48967 Level 3 Est. Patient 09:38:41 CDT Shola Houghsabi [facility] CPT-84425 Level 3 Est. Patient 14:45:26 CDT Edilberto tiwari [facility] CPT-84891 Level 3 Est. Patient 10:51:33 CDT Hira muniz [facility]-95022 Level 3 Est. Patient 11:57:55 SALES ACCOUNT ASSOCIATE Shola Wright [facility] CPT-81194 Level 3 Est. Patient 09:53:33 SALES ACCOUNT ASSOCIATE Edilberto tiwari [facility] CPT-00301 Level 3 Est. Patient 14:42:54 SALES ACCOUNT ASSOCIATE Abhinav Galvan MD [facility]-41724 Level 3 Est. Patient 15:10:02 CDT Janak Stevenamira guadalupe [facility] CPT-39208 Level 3 Est. Patient 15:20:20 CDT Theo dennis MD [facility]-71957 Level 2 Est. Patient 14:08:57 CDT Kalpesh goins MD [facility] CPT-14618 Level 3 Est. Patient 13:56:19 CDT Abdirahman Rios MD [facility] CPT-37399 Level 3 Est. Patient 13:59:37 CDT Abdirahman Rios MD [facility] CPT-61707 Level 2 Est. Patient 14:44:59 CDT Kalpesh goins MD [facility] CPT-57406 Level 3 Est. Patient 06:06:23 CDT Edilberto tiwari DO [facility] CPT-84743 Level 3 Est. Patient 15:23:54 CDT Abdirahman Rios MD [facility] CPT-78867 Level 3 Est. Patient 15:43:49 CDT Abdirahman Rios MD [facility] CPT-78824 Level 3 Est. Patient 12:46:47 SALES ACCOUNT ASSOCIATE Abdirahman Rios MD [facility] CPT-38518 Level 3 Est. Patient 08:13:35 SALES ACCOUNT ASSOCIATE Abdirahman Rios MD [facility] CPT-04905 Level 2 Est. Patient 09:36:42 SALES ACCOUNT ASSOCIATE Abdirahman Rios MD [facility] CPT-73791 Level 3 Est. Patient 10:56:43 CDT Abdirahman Rios MD [facility] CPT-47184 Level 3 Est. Patient 18:24:52 CDT Abdirahman Rios MD [facility] CPT-48087 Level 3 Est. Patient 13:27:22 CDT Abdirahman Rios MD [facility] Procedures Code Procedure Name Date Entry Date Standard Desc ription CPT-50731 Postop F/U Visit 14:08:43 SALES ACCOUNT ASSOCIATE CPT-63437 Postop F/U Visit 15:18:16 SALES ACCOUNT ASSOCIATE CPT-33621 Postop F/U Visit 15:03:49 SALES ACCOUNT ASSOCIATE CPT-39029 Postop F/U Visit 14:45:23 SALES ACCOUNT ASSOCIATE CPT-20816 Postop F/U Visit 14:11:03 SALES ACCOUNT ASSOCIATE CPT-21422 Postop F/U Visit 18:21:21 SALES ACCOUNT ASSOCIATE CPT-59135 Postop F/U Visit 15:57:12 SALES ACCOUNT ASSOCIATE CPT-65737 Bladder Instillation 16:58:41 SALES ACCOUNT ASSOCIATE 6 CPT-29857 Fluzone Quadrivalent Intramuscular Suspe nsion 0.5 ML 15:20:56 SALES ACCOUNT ASSOCIATE CPT-60642 Immunization Single Admin 15:20:56 SALES ACCOUNT ASSOCIATE 2014 CPT-64824 Excis pilonidal cyst simple 08:51:34 CDT 20 22/04/20 CPT-91274 Venipuncture Draw Fee 14:27:29 CDT CPT-24890 Postop F/U Visit 15:27:43 CDT CPT-25889 Postop F/U Visit 14:40:59 CDT CPT-60046 Postop F/U Visit 15:02:46 CDT CPT-37321 Postop F/U Visit 11:29:00 SALES ACCOUNT ASSOCIATE CPT-J0696 Rocephin 1000 mg (Ceftriaxone) 17:22:33 SALES ACCOUNT ASSOCIATE CPT-33986 Postop F/U Visit 18:41:07 SALES ACCOUNT ASSOCIATE CPT-03526 Postop F/U Visit 08:19:08 SALES ACCOUNT ASSOCIATE CPT-06057 Immunization Single Admin 16:41:53 CDT 2013 CPT-84441 Fluzone Quadrivalent Intramuscular Suspe nsion 0.5 ML 16:41:53 CDT CPT-OV Office Visit 16:39:18 CDT CPT-OV Office Visit 16:16:36 CDT CPT-OV Office Visit 15:34:48 CDT CPT-24781 Postop F/U Visit 14:50:12 CDT CPT-27416 Postop F/U Visit 14:41:10 CDT CPT-44047 Venipuncture Draw Fee 11:38:04 SALES ACCOUNT ASSOCIATE CPT-34307 Postop F/U Visit 19:02:59 SALES ACCOUNT ASSOCIATE CPT-81514 Postop F/U Visit 12:04:54 SALES ACCOUNT ASSOCIATE CPT-35357 Administration single or combination vac cine inc oral 15:56:43 CDT CPT-80949 Influenza split virus > age 3 15:56:43 CDT CPT-31128 Hand comp min 3V 14:25:19 CDT CPT-37948 Postop F/U Visit 21:40:51 CDT CPT-77787 Postop F/U Visit 10:58:43 CDT CPT-35173 Administration single or combination vac cine inc oral 12:33:54 SALES ACCOUNT ASSOCIATE CPT-30553 Influenza Preservative Free split virus >age 3 12:33:54 SALES ACCOUNT ASSOCIATE CPT-39022 Administration single or combination vac cine inc oral 09:30:51 CDT CPT-00378 Influenza split virus > age 3 09:30:51 CDT CPT-60047 Postop F/U Visit 15:14:53 CDT CPT-01625 Postop F/U Visit 13:50:14 CDT CPT-08026 Postop F/U Visit 13:34:52 CDT CPT-OV Office Visit 16:55:03 CDT CPT-38047 [place] of cervix w bx ECC 13:32:50 CDT 10/19 CPT-J1885 Toradol 60 mg (Ketorolac) 15:31:59 CDT 2011 CPT-J1885 Toradol 60 mg (Ketorolac) 15:23:54 CDT 2011 CPT-25741 Visit 11:34:37 SALES ACCOUNT ASSOCIATE CPT-97574 Visit 10:52:39 SALES ACCOUNT ASSOCIATE CPT-10968 Visit 10:12:02 SALES ACCOUNT ASSOCIATE CPT-92798 Visit 11:22:43 SALES ACCOUNT ASSOCIATE CPT-37558 Visit 11:24:12 SALES ACCOUNT ASSOCIATE CPT-75084 Visit 10:47:05 SALES ACCOUNT ASSOCIATE CPT-OV Office Visit 10:26:16 SALES ACCOUNT ASSOCIATE CPT-OV Office Visit 15:34:31 SALES ACCOUNT ASSOCIATE CPT-39555 Visit 10:42:08 SALES ACCOUNT ASSOCIATE CPT-90312 Visit 10:52:45 SALES ACCOUNT ASSOCIATE CPT-000 Give Appropriate Flu Vaccine 16:56:41 CDT 2 CPT-43158 Administration single or combination vac cine inc oral 10:33:21 CDT CPT-64534 Influenza split virus > age 3 10:33:21 CDT CPT-19240 Visit 13:23:09 CDT CPT-78341 Visit 18:24:52 CDT CPT-08915 Sono OB comp > 14 weeks 12:07:49 CDT 04/07
--- OUTSIDE RECORDS SUMMARY | 2020-01-18 16:10 | XMS REPORT | Clinical Summary ---
Author Author Avery, Jeri Rashid Organization [employer] Address Unknown Phone Unavailable Allergies, Adverse Reactions, Alerts Allergy Name Reaction Description Start Date Severity Status Pr ovider SULFA Critical Active Jillina Frazel l ENVIRONMENTAL HEALTH SAFETY ENGINEER TORADOL Rash Severe Active Rajni Yokjagjit AP [...] at surgical incision 782.0 Active Hira Moser ENVIRONMENTAL HEALTH SAFETY ENGINEER Disturbance of skin sensation , INCIDENTAL PROBLEM [...] MD Impetigo ICD-684 Inactive Abdirahman Rios MD 2015/ 02/16 AFTERCARE FOLLOW SURGERY SKIN&SUBCUT TISSUE NEC ICD-V58.77 Inactive Abdirahman Rios MD Aftercare following surgery of the skin and subcutaneous tis braden, NEC ICD-V58.77 Inactive Abdirahman Rios MD Medication List Medication Instructions Start Date Stop Date Generic Name NDC Status Provider Patient Instruction EMLA 2.5-2.5 % EXT CREA apply tid, prn LIDOCAIN E-PRILOCAINE 28403118711 Active Jillina Frajalenl ENVIRONMENTAL HEALTH SAFETY ENGINEER Active PERCOCET 5-325 MG TAB 1 tab po q 6 hours, prn OXYCODONE-ACETAMINOPHEN 83451763546 Active Jillina Frazell ENVIRONMENTAL HEALTH SAFETY ENGINEER Active [id number] 50-325-40 MG ORAL TABS 1 po TID PRN Headaches [id number] 76372628377 No Longer Active Jillina Karmenl ENVIRONMENTAL HEALTH SAFETY ENGINEER Active GLYDO 2 % EXT GEL apply to painful areas as needed 201 12/10/13 LIDOCAINE HCL 55177816629 No Longer Active Jillina Karmenl ENVIRONMENTAL HEALTH SAFETY ENGINEER Ac tive PERCOCET 10-325 MG ORAL TABS 1 every 4 hous as needed OXYCODONE-ACETAMINOPHEN 49795884707 No Longer Active Jillina Karmenl ENVIRONMENTAL HEALTH SAFETY ENGINEER Active LC-4 LIDOCAINE 4 % EXT CREA apply to painful area every 12 h ours or as needed LIDOCAINE 45702413479 No Longer Active Jillina Fra janee ENVIRONMENTAL HEALTH SAFETY ENGINEER Active CHANTIX STARTING MONTH MARGARITA 0.5 MG X 11 & 1 MG X 42 TAB S 0.5mg daily for 3 days, then 0.5mg BID for 4 days, then 1mg BID VARENICL INE TARTRATE 66927237509 Active Abdirahman Rios MD Active AMOXICILLIN 500 MG CAPS 2 po BID x 10 days AMOX ICILLIN 50788924413 No Longer Active Abdirahman Rios MD Active PROMETHAZINE HCL 25 MG TABS 1 four times a day as needed for nausea/vomiting PROMETHAZINE HCL 52451469381 No Longer Active Abdirahman Rios MD Active LC-4 LIDOCAINE 4 % EXT CREA apply q 6 hours, prn 08/03 LIDOCAINE 23236029778 No Longer Active Kalpesh Dong MD Active PERCOCET 10-325 MG TABS 1 tablet every 8 hours as needed for antonia n OXYCODONE-ACETAMINOPHEN 08991419011 No Longer Active Kalpesh Dong MD Active HYDROCODONE-ACETAMINOPHEN 5-325 MG TABS 1 tab by mouth every 6 hours as needed for pain HYDROCODONE-ACETAMINOPHEN 48251574941 No Longer Active Kalpesh Dong MD Active AUGMENTIN 875-125 MG TAB 1 tab by mouth twice daily with food 20 23/05/16 AMOXICILLIN-POT CLAVULANATE 31594326978 No Longer Active Lizeth hi Yokum ENVIRONMENTAL HEALTH SAFETY ENGINEER 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 FLUTICASONE PROPIONATE 63758976238 No Longer Ac tive Rajni Yokum ENVIRONMENTAL HEALTH SAFETY ENGINEER Active PERCOCET 10-325 MG ORAL TABS take 1 tab by mouth q 4hours as needed for pain OXYCODONE-ACETAMINOPHEN 50863719076 No Longer Active Rajni Yokum ENVIRONMENTAL HEALTH SAFETY ENGINEER Active PERCOCET 10-325 MG ORAL TABS one every 6 hours prn pain OXYCODONE-ACETAMINOPHEN 53847899384 No Longer Active Rajni Yokum ENVIRONMENTAL HEALTH SAFETY ENGINEER Active IBUPROFEN 800 MG TABS 1 tab po tid, with food I BUPROFEN 63561393252 Active Jillina Frazell ENVIRONMENTAL HEALTH SAFETY ENGINEER Active DICLOFENAC SODIUM 50 MG TBEC 1 tablet by mouth four times da tom PRN Pain DICLOFENAC SODIUM 71075452260 No Longer Active Rajni Yokum ENVIRONMENTAL HEALTH SAFETY ENGINEER Active VIIBRYD 10 & 20 & 40 MG KIT 1 po qd as directed 07/24 VILAZODONE HCL 16396198707 No Longer Active Rajni Yokum ENVIRONMENTAL HEALTH SAFETY ENGINEER Active ONDANSETRON 4 MG TBDP 1 q4h PRN nausea ONDANSET KELBY 25894049715 No Longer Active Rajni Yoyanaum ENVIRONMENTAL HEALTH SAFETY ENGINEER Active PERCOCET 10-325 MG TABS 1 tablet every 8 hours as needed for antonia n OXYCODONE-ACETAMINOPHEN 30806716880 No Longer Active Rajni cox ENVIRONMENTAL HEALTH SAFETY ENGINEER Active HYDROCODONE-ACETAMINOPHEN 5-325 MG TABS 1 po TID PRN Pain 9 HYDROCODONE-ACETAMINOPHEN 95295938169 No Longer Active Abdirahman Rios MD Active [id number] 50-325-40 MG ORAL CAPS 1-2 po TID TN N Headache [id number] 72495621968 No Longer Act krishna Kalpesh Dong MD Active ALPRAZOLAM 0.5 MG TABS 1 po BID PRN Anxiety ALP RAZOLAM 66748877138 No Longer Active Kalpesh Dong MD Active TRAZODONE HCL 100 MG TAB 0.5 to 1 po qHS PRN Insomnia TRAZODONE HCL 25870604144 No Longer Active Kalpesh Dong MD Activ e HYDROCODONE-ACETAMINOPHEN 5-325 MG TABS 1 po q6hr PRN Pain 04/09 HYDROCODONE-ACETAMINOPHEN 05572863748 No Longer Active Kalpesh Dong MD Active CYMBALTA 30 MG CPEP 1 cap by mouth daily DULOXE CLEO HCL 41045793757 No Longer Active Abdirahman Rios MD Active IBUPROFEN 600 MG ORAL TABS 1 by mouth twice a day 2014 IBUPROFEN 73453377269 No Longer Active Abdirahman Rios MD Activ e PERCOCET 5-325 MG TAB 1 tab po q 6 hours, prn severe pain 1 OXYCODONE-ACETAMINOPHEN 04576475731 No Longer Active Abdirahman Rios MD Active SPRINTEC 28 0.25-35 MG-MCG TABS 1 pill by mouth daily for bi rth control NORGESTIMATE-ETH ESTRADIOL 20990306223 No Longer Acti ve Matthewllina Joyzell ENVIRONMENTAL HEALTH SAFETY ENGINEER Active CYCLOBENZAPRINE HCL 10 MG TABS 1 tablet by mouth three times daily as needed for muscle spasm/pain CYCLOBENZAPRINE HCL 42578164785 No Longer Active Jillina Frazell ENVIRONMENTAL HEALTH SAFETY ENGINEER Active HYDROCODONE-ACETAMINOPHEN 5-325 MG TABS 1 po q6hr PRN Pain 03/09 HYDROCODONE-ACETAMINOPHEN 78344996096 No Longer Active Matthewllina Joyzel l ENVIRONMENTAL HEALTH SAFETY ENGINEER Active AUGMENTIN 500-125 MG ORAL TABS 1 by mouth twice a day AMOXICILLIN-POT CLAVULANATE 90017396304 No Longer Active Jillina Frazell ENVIRONMENTAL HEALTH SAFETY ENGINEER Active DICLOFENAC SODIUM 50 MG TBEC 1 tablet by mouth four times da tom PRN Pain DICLOFENAC SODIUM 34392333441 No Longer Active Jillin a Karmenl ENVIRONMENTAL HEALTH SAFETY ENGINEER Active PROMETHAZINE HCL 25 MG TABS 1 four times a day as needed for nausea/vomiting PROMETHAZINE HCL 01862272693 No Longer Active Abdirahman Rios MD Active HYDROCODONE-ACETAMINOPHEN 5-325 MG TABS 1 tab by mouth every 6 hours as needed PRN Pain HYDROCODONE-ACETAMINOPHEN 77885498530 No Longer Active Abdirahman Rios MD Active GEMFIBROZIL 600 MG TABS 1 po BID GEMFIBROZIL 87968132 005 Active Abdirahman Rios MD Active PERCOCET 5-325 MG ORAL TABS 1 every 6 hours as needed OXYCODONE-ACETAMINOPHEN 76294098138 No Longer Active Abdirahman Rios MD Active PERCOCET 5-325 MG TAB 1 tab po q 6 -8 hours, prn for severe pain OXYCODONE-ACETAMINOPHEN 23511817813 No Longer Active Abdirahman Rios MD Active HYDROCODONE-ACETAMINOPHEN 5-325 MG TABS 1 po q6hr PRN pain 06/30 HYDROCODONE-ACETAMINOPHEN 52503058411 No Longer Active Hira roman ENVIRONMENTAL HEALTH SAFETY ENGINEER Active GLUCOPHAGE 500 MG ORAL TABS one by mouth 3 times a day METFORMIN HCL 57013947787 No Longer Active Hira Moser ENVIRONMENTAL HEALTH SAFETY ENGINEER Ac tive PERCOCET 10-325 MG TABS 1 tab by mouth every 6 hours , use sparingly for severe pain OXYCODONE-ACETAMINOPHEN 70820721037 No Longer A ctive Abdirahman Rios MD Active EMLA 2.5-2.5 % EXT CREA apply to skin lesion q 6 hours, prn 2014 LIDOCAINE-PRILOCAINE 82186455441 No Longer Active Abdirahman Rios MD Active PERCOCET 10-325 MG ORAL TABS 1 every 4 hours as needed OXYCODONE-ACETAMINOPHEN 39761676632 No Longer Active Abdirahman Rios MD Active AUGMENTIN 875-125 MG TAB 1 tab by mouth twice daily with food 20 21/10/13 AMOXICILLIN-POT CLAVULANATE 08078755232 No Longer Active Ursula Moser APRN Active PROAIR HFA 108 (90 BASE) MCG/ACT AERS 2 puff q 4-6 hrs PRN 01/24 ALBUTEROL SULFATE 13074365869 No Longer Active Kalpesh Dong MD Active PREDNISONE 20 MG TAB 2 tabs daily for 3 days, 1 t ab daily for 3 days, 1/2 tab daily for 2 days PREDNISONE 68768647294 No Longer Active Abdirahman Rios MD Active KEFLEX 500 MG CAP 1 po qid CEPHALEXIN 104377006 20 No Longer Active Kalpesh Dong MD Active PERCOCET 5-325 MG TAB 1 every 6 hours as needed OXYCODONE-ACETAMINOPHEN 55015516139 No Longer Active Shola MCGILL Active LC-5 LIDOCAINE 5 % CREA apply 1 time daily to affected area 2013 LIDOCAINE (ANORECTAL) 05389994882 No Longer Active Jillina F razell ENVIRONMENTAL HEALTH SAFETY ENGINEER Active HYDROCODONE-ACETAMINOPHEN 10-325 MG TABS 1 by mouth ev chaka 8 hours as needed for pain HYDROCODONE-ACETAMINOPHEN 86361302389 No Longer Active Jillina Frazell ENVIRONMENTAL HEALTH SAFETY ENGINEER Active LORATADINE 10 MG TABS 1 tablet by mouth daily L ORATADINE 88474373322 No Longer Active Jillina Frazell ENVIRONMENTAL HEALTH SAFETY ENGINEER Active DIFLUCAN 150 MG TAB 1 qODay x 2 doses FLUCONAZO LE 45017851805 No Longer Active Jillina Frazell ENVIRONMENTAL HEALTH SAFETY ENGINEER Active CYCLOBENZAPRINE HCL 10 MG TABS 1/2 - 1 tab PO tid PRN back p ain, muscle spasm CYCLOBENZAPRINE HCL 38361863157 No Longer Active Karen herson Frazell ENVIRONMENTAL HEALTH SAFETY ENGINEER Active AUGMENTIN 875-125 MG TAB 1 tab by mouth twice daily with food 20 22/05/07 AMOXICILLIN-POT CLAVULANATE 70191016320 No Longer Active Loida Rios MD Active MOBIC 15 MG TABS 1 tab daily MELOXICAM 598091527 14 No Longer Active Abdirahman Rios MD Active PERCOCET 7.5-325 MG TABS 1 PO tid PRN pain OXYCODONE-ACETAMINOPHEN 30571132836 No Longer Active Abdirahman Rios MD Active LIDODERM 5 % PTCH One patch to painful area [place] N. On for 12 hrs, off for 12 hrs. LIDOCAINE 90411642981 No Longer Active Abdirahman Rios MD Active PERCOCET 7.5-325 MG TABS 1 PO q 8 hrs PRN pain OXYCODONE-ACETAMINOPHEN 24035585608 No Longer Active Shola MCGILL Active HYDROCODONE-ACETAMINOPHEN 7.5-325 MG TABS 1 by mouth e very 6 hours as needed for pain HYDROCODONE-ACETAMINOPHEN 80033932031 No Longer Active Good Julian MD Active CLINDAMYCIN HCL 300 MG CAPS 1 po QID x 7 days CLINDAMYCIN HCL 48087276647 No Longer Active Abdirahman Rios MD Activ e BACTRIM DS 800-160 MG TABS 1 po BID x 7 days 5 SULFAMETHOXAZOLE-TRIMETHOPRIM 17428402181 No Longer Active Abdirahman Rios MD Active ENDOCET 10-325 MG TABS 1 q 6 hr prn OXYCODONE-ACETAMINOPHEN 47387957853 No Longer Active Abdirahman Rios MD Active IBUPROFEN 800 MG TABS 1 tid prn IBUPROFEN 573192 57008 No Longer Active Abdirahman Rios MD Active BACTRIM DS 800-160 MG TABS by mouth twice a day 11/05 SULFAMETHOXAZOLE-TRIMETHOPRIM 09557394800 No Longer Active Good Julian MD Active HYDROCODONE-ACETAMINOPHEN 7.5-325 MG TABS 1 four times a day as needed for pain HYDROCODONE-ACETAMINOPHEN 81635157834 No Longer Activ e Good Julian MD Active KEFLEX 500 MG CAP 1 tab po tid CEPHALEXIN 694243 95764 No Longer Active Hira Moser APRN Active IBUPROFEN 800 MG TAB 1 pill three times daily as needed for pain IBUPROFEN 02261789551 No Longer Active Kalpesh Dong MD Active PROMETHAZINE-CODEINE 6.25-10 MG/5ML SYRP 1 tsp every 6 hrs prn c ough PROMETHAZINE-CODEINE 98700243082 No Longer Active Kalpesh Carr Active HYDROCODONE-ACETAMINOPHEN 5-325 MG TABS 1 tab by mouth every 6 hours as needed HYDROCODONE-ACETAMINOPHEN 95850576571 No Longer Activ e Shola MCGILL Active CEPHALEXIN 500 MG CAPS 1 PO bid x 7 days CEPHAL EXIN 64700987931 No Longer Active Shola MCGILL Active BACTRIM DS 800-160 MG TAB 1 tab by mouth twice daily 2 TRIMETHOPRIM-SULFAMETHOXAZOLE 39061650722 No Longer Active Kalpesh Dong MD Active HYDROCODONE-ACETAMINOPHEN 5-325 MG TABS 1 PO tid PRN pain 5 HYDROCODONE-ACETAMINOPHEN 15057981710 No Longer Active Abhinav Galvan MD Active IMPLANON 68 MG IMPL IMPLANTED IN LEFT ARM ETONO GESTREL 78553943748 No Longer Active Hira Moser APRN Active AMOXICILLIN 500 MG TABS 2 tabs PO bid x 10 d AM OXICILLIN 40380220453 No Longer Active Kalpesh Dong MD Active LEVAQUIN 500 MG TABS 1 PO q day x 7 days LEVOFL OXACIN 17226788346 No Longer Active Shola MCGILL Active AMITRIPTYLINE HCL 25 MG TAB 1 tab by mouth daily 60 minutes before bedtime AMITRIPTYLINE HCL 57122340490 No Longer Active Shola MCGILL Active LORTAB 5 5-500 MG TABS 1/2 to 1 tablet by mouth go ry 6 hours as needed for pain HYDROCODONE-ACETAMINOPHEN 12773851639 No Longer Active Shola MCGILL Active CEPHALEXIN 500 MG TABS Take one by mouth four times daily, morning, noon, early evening and bedtime. CEPHALEXIN 95721617228 No Long er Active Hira Moser APRN Active TYLENOL/CODEINE #3 300-30 MG TAB 1-2 po q6hr PRN Pain ACETAMINOPHEN-CODEINE 14481692832 No Longer Active Edilberto Marino DO Active PRISTIQ 50 MG DO30H-LSN 1 po qd DESVENLAFAXI NE SUCCINATE 76657677419 No Longer Active Edilberto Marino DO Active PENICILLIN V POTASSIUM 500 MG TAB 1 four times a day 2 PENICILLIN V POTASSIUM 09781992287 No Longer Active Edilberto Marino DO Active DOXYCYCLINE HYCLATE 100 MG CAPS Take one (1) tablet by mouth twice a day DOXYCYCLINE HYCLATE 89796974456 No Longer Active Ronnie Galvan MD Active HYDROCODONE-ACETAMINOPHEN 5-325 MG TABS 1 po q 6hr PRN Pain 2011 HYDROCODONE-ACETAMINOPHEN 85474084728 No Longer Active Patri joan Perez RN Active BACTRIM DS 800-160 MG TAB 1 tab by mouth twice daily 2 TRIMETHOPRIM-SULFAMETHOXAZOLE 98009264942 No Longer Active Kalpesh Dong MD Active LORTAB 5 5-500 MG TABS 1/2 to 1 tablet by mouth go ry 4 hours as needed for pain HYDROCODONE-ACETAMINOPHEN 69227683349 No Longer Active Kalpesh Dong MD Active GENERESS FE 0.8-25 MG-MCG CHEW Take one by mouth daily NORETHIN-ETH ESTRADIOL-FE 55314819733 No Longer Active Kalpesh Dong MD Active HYDROCODONE-ACETAMINOPHEN 7.5-500 MG TABS 1-2 every 4 hours as needed HYDROCODONE-ACETAMINOPHEN 97322170317 No Longer Activ e Kalpesh Dong MD Active FERROUS SULFATE 325 (65 FE) MG TABS 1 tablet by mouth twice yung y FERROUS SULFATE 18311159346 No Longer Active Kalpesh Dong MD Active IBUPROFEN 600 MG TAB 1 po q6-8hr PRN IBUPROFEN 10563158735 No Longer Active Kalpesh Dong MD Active SPIRONOLACTONE 25 MG TAB 1 tablet by mouth daily 01/22 SPIRONOLACTONE 05262173812 No Longer Active Kalpesh Dong MD Acti ve HYDROCODONE-ACETAMINOPHEN 7.5-325 MG TABS 1 po QID PRN Pain 2011 HYDROCODONE-ACETAMINOPHEN 15471249640 No Longer Active Kalpesh Dogn MD Active CLINDAMYCIN HCL 300 MG CAPS 1 po q6hr x 7 days CLINDAMYCIN HCL 41591026622 No Longer Active Edilberto Marino DO Active PREDNISONE 20 MG TAB 2 tabs daily for 4 days, 1 t ab daily for 4 days, 1/2 tab daily for 4 days PREDNISONE 32389012343 No Longer Active Edilberto Marino DO Active PERCOCET 5-325 MG TABS 1 tablet by mouth every 6 hours as ne eded for pain OXYCODONE-ACETAMINOPHEN 83479062067 No Longer Active Abdirahman Rios MD Active VITAMINS TABS Take one by mouth daily MV & MIN W/FE-FA TABS 76601489823 No Longer Active Abdirahman Rios MD Active LUIS 3-0.02 MG TABS 1 tablet by mouth daily as directed DROSPIRENONE-ETHINYL ESTRADIOL 29655019439 No Longer Active Abdirahman Rios MD Active LORATADINE 10 MG TABS 1 tablet by mouth daily L ORATADINE 88880515334 No Longer Active Kalpesh Dong MD Active HYDROCODONE-ACETAMINOPHEN 5-325 MG TABS 1 po q 6hr PRN Pain 2010 HYDROCODONE-ACETAMINOPHEN 65296014992 No Longer Active Edilberto Marino DO Active BACTRIM DS 800-160 MG TAB 1 tab by mouth twice daily 2 TRIMETHOPRIM-SULFAMETHOXAZOLE 77869169241 No Longer Active Abdirahman Rios MD Active 28-0.8 MG TABS Take one by mouth daily 09/20 VIT-FE FUMARATE-FA 12531053036 No Longer Active Abdirahman Rios MD Active CIPRO 500 MG TAB 1 tablet by mouth twice daily CIPROFLOXACIN HCL 42312817801 No Longer Active Abdirahman Rios MD Active BENADRYL 25 MG CAP 1 po q8hr PRN Congestion DIPHENHYDRAMINE HCL 04689559915 No Longer Active Abdirahman Rios MD Active ZOLOFT 50 MG TAB 1 po qd SERTRALINE HCL 479153 35319 No Longer Active Abdirahman Rios MD Active AMOXICILLIN 875 MG TABS 1 tab by mouth twice daily 201 08/09/13 AMOXICILLIN 49336302483 No Longer Active Abdirahman Rios MD Activ e AMOXICILLIN 875 MG TABS 1 tab by mouth twice daily 201 07/19/27 AMOXICILLIN 18599007730 No Longer Active Abdirahman Rios MD Activ e BACTRIM DS 800-160 MG TAB 2 tab by mouth twice daily 2 TRIMETHOPRIM-SULFAMETHOXAZOLE 53642399162 No Longer Active Abdirahman Rios MD Active KEFLEX 500 MG CAP 1 po tid x 10 days CEPHALEXIN 94440204731 No Longer Active Abdirahman Rios MD Active AMOXICILLIN 875 MG TABS 1 tab by mouth twice daily 201 07/18/07 AMOXICILLIN 68906537057 No Longer Active Abdirahman Rios MD Activ e BACTRIM DS 800-160 MG TAB 2 tab by mouth twice daily 2 BACTRIM DS 800-160 MG TAB 676010 TRIMETHOPRIM-SULFAMETHOXAZOLE Inactive ZOLOFT 50 MG TAB 1 po qd ZOLOFT 50 MG TAB 3129 41 SERTRALINE HCL Inactive BENADRYL 25 MG CAP 1 po q8hr PRN Congestion BENADRYL 25 MG CAP 3340284 DIPHENHYDRAMINE HCL Inactive 28-0.8 MG TABS Take one by mouth daily 09/20 28-0.8 MG TABS VIT-FE FUMARATE-FA Inactive HYDROCODONE-ACETAMINOPHEN 5-325 MG TABS 1 po q 6hr PRN Pain 2010 HYDROCODONE-ACETAMINOPHEN 5-325 MG TABS 059074 HYDROCODONE-ACETAMINOPHEN Inactive LORATADINE 10 MG TABS 1 tablet by mouth daily LORATADINE 10 MG TABS 826992 LORATADINE Inactive LUIS 3-0.02 MG TABS 1 tablet by mouth daily as directed LUIS 3-0.02 MG TABS 241272 DROSPIRENONE-ETHINYL ESTRADIOL Inactive VITAMINS TABS Take one by mouth daily VITAMINS TABS MV & MIN W/FE-FA TABS Inactive PERCOCET 5-325 MG TABS 1 tablet by mouth every 6 hours as ne eded for pain PERCOCET 5-325 MG TABS 2683759 OXYCODONE-ACETAMIN OPHEN Inactive PREDNISONE 20 MG TAB 2 tabs daily for 4 days, 1 t ab daily for 4 days, 1/2 tab daily for 4 days PREDNISONE 20 MG TAB 416690 PREDNISON E Inactive CLINDAMYCIN HCL 300 MG CAPS 1 po q6hr x 7 days CLINDAMYCIN HCL 300 MG CAPS 546661 CLINDAMYCIN HCL Inactive HYDROCODONE-ACETAMINOPHEN 7.5-325 MG TABS 1 po QID PRN Pain 2011 HYDROCODONE-ACETAMINOPHEN 7.5-325 MG TABS 067836 HYDROCODONE-ACETAMINOPHEN Inactive SPIRONOLACTONE 25 MG TAB 1 tablet by mouth daily 01/22 SPIRONOLACTONE 25 MG TAB 331540 SPIRONOLACTONE Inactive IBUPROFEN 600 MG TAB 1 po q6-8hr PRN IBUPROFEN 600 MG TAB 078338 IBUPROFEN Inactive FERROUS SULFATE 325 (65 FE) MG TABS 1 tablet by mouth twice yung y FERROUS SULFATE 325 (65 FE) MG TABS 605626 FERROUS SULF ATE Inactive HYDROCODONE-ACETAMINOPHEN 7.5-500 MG TABS 1-2 every 4 hours as needed HYDROCODONE-ACETAMINOPHEN 7.5-500 MG TABS HYDROCODONE-ACETAMINOPHEN Inactive GENERESS FE 0.8-25 MG-MCG CHEW Take one by mouth daily GENERESS FE 0.8-25 MG-MCG CHEW [id number] NORETHIN-ETH ESTRADIOL-FE Inactive LORTAB 5 5-500 MG TABS 1/2 to 1 tablet by mouth go ry 4 hours as needed for pain LORTAB 5 5-500 MG TABS HYDROCODONE-A CETAMINOPHEN Inactive BACTRIM DS 800-160 MG TAB 1 tab by mouth twice daily 2 BACTRIM DS 800-160 MG TAB 568113 TRIMETHOPRIM-SULFAMETHOXAZOLE Inac tive HYDROCODONE-ACETAMINOPHEN 5-325 MG TABS 1 po q 6hr PRN Pain 2011 HYDROCODONE-ACETAMINOPHEN 5-325 MG TABS 597944 HYDROCODONE-ACETAMINOPHEN Inactive DOXYCYCLINE HYCLATE 100 MG CAPS Take one (1) tablet by mouth twice a day DOXYCYCLINE HYCLATE 100 MG CAPS 7300180 DOXYCYCLINE HYCLATE Inactive PENICILLIN V POTASSIUM 500 MG TAB 1 four times a day 2 PENICILLIN V POTASSIUM 500 MG TAB 546019 PENICILLIN V POTASSIUM [place] ctive PRISTIQ 50 MG [id number] 1 po qd PRISTIQ 50 MG [id number] DESVENLAFAXINE SUCCINATE Inactive TYLENOL/CODEINE #3 300-30 MG TAB 1-2 po q6hr PRN Pain TYLENOL/CODEINE #3 300-30 MG TAB 686507 ACETAMINOPHEN-CODEINE Inact krishna CEPHALEXIN 500 MG TABS Take one by mouth four times daily, morning, noon, early evening and bedtime. CEPHALEXIN 500 MG TABS 339415 CEPHALEXIN Inactive LORTAB 5 5-500 MG TABS 1/2 to 1 tablet by mouth go ry 6 hours as needed for pain LORTAB 5 5-500 MG TABS HYDROCODONE-A CETAMINOPHEN Inactive AMITRIPTYLINE HCL 25 MG TAB 1 tab by mouth daily 60 minutes before bedtime AMITRIPTYLINE HCL 25 MG TAB 525875 AMITRIPTYLINE HCL Inactive AMOXICILLIN 500 MG TABS 2 tabs PO bid x 10 d 7 AMOXICILLIN 500 MG TABS 860331 AMOXICILLIN Inactive IMPLANON 68 MG IMPL IMPLANTED IN LEFT ARM IMPLANON 68 MG IMPL ETONOGESTREL Inactive HYDROCODONE-ACETAMINOPHEN 5-325 MG TABS 1 PO tid PRN pain 5 HYDROCODONE-ACETAMINOPHEN 5-325 MG TABS 566499 HYDROCODONE-ACETAMIN OPHEN Inactive BACTRIM DS 800-160 MG TAB 1 tab by mouth twice daily 2 BACTRIM DS 800-160 MG TAB [id number] TRIMETHOPRIM-SULFAMETHOXAZOLE Inac tive CEPHALEXIN 500 MG CAPS 1 PO bid x 7 days CEPHALEXIN 500 MG CAPS 621759 CEPHALEXIN Inactive HYDROCODONE-ACETAMINOPHEN 5-325 MG TABS 1 tab by mouth every 6 hours as needed HYDROCODONE-ACETAMINOPHEN 5-325 MG TABS 853049 HYDROCODONE-ACETAMINOPHEN Inactive PROMETHAZINE-CODEINE 6.25-10 MG/5ML SYRP 1 tsp every 6 hrs prn c ough PROMETHAZINE-CODEINE 6.25-10 MG/5ML SYRP 767515 PROMETH AZINE-CODEINE Inactive IBUPROFEN 800 MG TAB 1 pill three times daily as needed for pain IBUPROFEN 800 MG TAB 993849 IBUPROFEN Inactive KEFLEX 500 MG CAP 1 tab po tid KEFLEX 500 MG CAP 590868 CEPHALEXIN Inactive HYDROCODONE-ACETAMINOPHEN 7.5-325 MG TABS 1 four times a day as needed for pain HYDROCODONE-ACETAMINOPHEN 7.5-325 MG TABS 210436 HYDROCODONE-ACETAMINOPHEN Inactive BACTRIM DS 800-160 MG TABS by mouth twice a day 11/05 BACTRIM DS 800-160 MG TABS 19820910 SULFAMETHOXAZOLE-TRIMETHOPRIM Inactive IBUPROFEN 800 MG TABS 1 tid prn IBUPROFEN 800 MG TABS 675541 IBUPROFEN Inactive ENDOCET 10-325 MG TABS 1 q 6 hr prn ENDOC ET 10-325 MG TABS 5619882 OXYCODONE-ACETAMINOPHEN Inactive HYDROCODONE-ACETAMINOPHEN 7.5-325 MG TABS 1 by mouth e very 6 hours as needed for pain HYDROCODONE-ACETAMINOPHEN 7.5-325 MG TABS 491019 HYDROCODONE-ACETAMINOPHEN Inactive PERCOCET 7.5-325 MG TABS 1 PO q 8 hrs PRN pain PERCOCET 7.5-325 MG TABS 4949427 OXYCODONE-ACETAMINOPHEN Inactive LIDODERM 5 % PTCH One patch to painful area [place] N. On for 12 hrs, off for 12 hrs. LIDODERM 5 % [facility] [id number] LIDOCAINE Inactiv e PERCOCET 7.5-325 MG TABS 1 PO tid PRN pain PERCOCET 7.5- 325 MG TABS 2587956 OXYCODONE-ACETAMINOPHEN Inactive MOBIC 15 MG TABS 1 tab daily MOBIC 15 MG TABS 15 2695 MELOXICAM Inactive CYCLOBENZAPRINE HCL 10 MG TABS 1/2 - 1 tab PO tid PRN back p ain, muscle spasm CYCLOBENZAPRINE HCL 10 MG TABS 408197 CYCLOBENZA JOSEPH HCL Inactive LORATADINE 10 MG TABS 1 tablet by mouth daily LORATADINE 10 MG TABS 127139 LORATADINE Inactive HYDROCODONE-ACETAMINOPHEN 10-325 MG TABS 1 by mouth ev chaka 8 hours as needed for pain HYDROCODONE-ACETAMINOPHEN 10-325 MG TABS [id number] HYDROCODONE-ACETAMINOPHEN Inactive LC-5 LIDOCAINE 5 % CREA apply 1 time daily to affected area 2013 LC-5 LIDOCAINE 5 % CREA [id number] LIDOCAINE (ANORECTAL) In active PERCOCET 5-325 MG TAB 1 every 6 hours as needed PERCOCET 5-325 MG TAB [id number] OXYCODONE-ACETAMINOPHEN Inactive KEFLEX 500 MG CAP 1 po qid KEFLEX 500 MG CAP 30 9114 CEPHALEXIN Inactive PROAIR HFA 108 (90 BASE) MCG/ACT AERS 2 puff q 4-6 hrs PRN 01/24 PROAIR HFA 108 (90 BASE) MCG/ACT AERS ALBUTEROL SULFATE Inactive PERCOCET 10-325 MG ORAL TABS 1 every 4 hours as needed PERCOCET 10-325 MG ORAL TABS [id number] OXYCODONE-ACETAMINOPHEN Inactiv e EMLA 2.5-2.5 % EXT CREA apply to skin lesion q 6 hours, prn 2014 EMLA 2.5-2.5 % EXT CREA [id number] LIDOCAINE-PRILOCAINE [place] [facility] PERCOCET 10-325 MG TABS 1 tab by mouth every 6 hours , use sparingly for severe pain PERCOCET 10-325 MG TABS [id number] OXYCODONE-ACETAMINOPHEN Inactive GLUCOPHAGE 500 MG ORAL TABS one by mouth 3 times a day GLUCOPHAGE 500 MG ORAL TABS [id number] METFORMIN HCL Inactive HYDROCODONE-ACETAMINOPHEN 5-325 MG TABS 1 po q6hr PRN pain 06/30 HYDROCODONE-ACETAMINOPHEN 5-325 MG TABS [id number] HYDROCOD ONE-ACETAMINOPHEN Inactive PERCOCET 5-325 MG TAB 1 tab po q 6 -8 hours, prn for severe pain PERCOCET 5-325 MG TAB [id number] OXYCODONE-ACETAMINOPHEN In active PERCOCET 5-325 MG ORAL TABS 1 every 6 hours as needed PERCOCET 5-325 MG ORAL TABS [id number] OXYCODONE-ACETAMINOPHEN Inactive DICLOFENAC SODIUM 50 MG TBEC 1 tablet by mouth four times da tom PRN Pain DICLOFENAC SODIUM 50 MG TBEC [id number] DICLOFENAC S ODIUM Inactive AUGMENTIN 500-125 MG ORAL TABS 1 by mouth twice a day AUGMENTIN 500-125 MG ORAL TABS [id number] AMOXICILLIN-POT CLAVULANATE I nactive HYDROCODONE-ACETAMINOPHEN 5-325 MG TABS 1 po q6hr PRN Pain 03/09 HYDROCODONE-ACETAMINOPHEN 5-325 MG TABS [id number] HYDROCOD ONE-ACETAMINOPHEN Inactive CYCLOBENZAPRINE HCL 10 MG TABS 1 tablet by mouth three times daily as needed for muscle spasm/pain CYCLOBENZAPRINE HCL 10 MG TABS 03347 8 CYCLOBENZAPRINE HCL Inactive SPRINTEC 28 0.25-35 MG-MCG TABS 1 pill by mouth daily for bi rth control SPRINTEC 28 0.25-35 MG-MCG TABS [id number] NORGESTIMATE-ETH ESTRADIOL Inactive PERCOCET 5-325 MG TAB 1 tab po q 6 hours, prn severe pain PERCOCET 5-325 MG TAB [id number] OXYCODONE-ACETAMINOPHEN Inactive IBUPROFEN 600 MG ORAL TABS 1 by mouth twice a day 2014 IBUPROFEN 600 MG ORAL TABS 083993 IBUPROFEN Inactive CYMBALTA 30 MG CPEP 1 cap by mouth daily CYMBALTA 30 MG CPEP 058014 DULOXETINE HCL Inactive HYDROCODONE-ACETAMINOPHEN 5-325 MG TABS 1 po q6hr PRN Pain 04/09 HYDROCODONE-ACETAMINOPHEN 5-325 MG TABS 540044 HYDROCOD ONE-ACETAMINOPHEN Inactive TRAZODONE HCL 100 MG TAB 0.5 to 1 po qHS PRN Insomnia TRAZODONE HCL 100 MG TAB 265390 TRAZODONE HCL Inactive ALPRAZOLAM 0.5 MG TABS 1 po BID PRN Anxiety ALPRAZOLAM 0.5 MG TABS 943125 ALPRAZOLAM Inactive OUEZQTTXHU-FMG-DLHNVUDV 50-325-40 MG ORAL CAPS 1-2 po TID TN N Headache QKGWSBVYWL-QFK-OVDTRRCF 50-325-40 MG ORAL CAPS 2 13394 WBTOTXSNMA-LZJYWLK-TPYSLKZH Inactive HYDROCODONE-ACETAMINOPHEN 5-325 MG TABS 1 po TID PRN Pain 9 HYDROCODONE-ACETAMINOPHEN 5-325 MG TABS 574575 HYDROCODONE-ACETAMIN OPHEN Inactive PERCOCET 10-325 MG TABS 1 tablet every 8 hours as needed for antonia n PERCOCET 10-325 MG TABS 3352084 OXYCODONE-ACETAMINOPHEN Inactive ONDANSETRON 4 MG TBDP 1 q4h PRN nausea ON DANSETRON 4 MG TBDP 478468 ONDANSETRON Inactive VIIBRYD 10 & 20 & 40 MG KIT 1 po qd as directed 07/24 VIIBRYD 10 & 20 & 40 MG KIT VILAZODONE HCL Inactive DICLOFENAC SODIUM 50 MG TBEC 1 tablet by mouth four times da tom PRN Pain DICLOFENAC SODIUM 50 MG TBEC 352286 DICLOFENAC S ODIUM Inactive PERCOCET 10-325 MG ORAL TABS one every 6 hours prn pain PERCOCET 10-325 MG ORAL TABS 2050437 OXYCODONE-ACETAMINOPHEN Inactiv e PERCOCET 10-325 MG ORAL TABS take 1 tab by mouth q 4hours as needed for pain PERCOCET 10-325 MG ORAL TABS 7332577 OXYCODONE-ACETAMINOPHEN Inactive FLONASE ALLERGY RELIEF 50 MCG/ACT NASAL SUSP One spray in each nostril twice a day. FLONASE ALLERGY RELIEF 50 MCG/ACT NASAL S [facility] 801157 FLUTICASONE PROPIONATE Inactive AUGMENTIN 875-125 MG TAB 1 tab by mouth twice daily with food 20 23/05/16 AUGMENTIN 875-125 MG TAB 528699 AMOXICILLIN-POT [place] Inactive HYDROCODONE-ACETAMINOPHEN 5-325 MG TABS 1 tab by mouth every 6 hours as needed for pain HYDROCODONE-ACETAMINOPHEN 5-325 MG TABS 8 76366 HYDROCODONE-ACETAMINOPHEN Inactive PERCOCET 10-325 MG TABS 1 tablet every 8 hours as needed for antonia n PERCOCET 10-325 MG TABS 6957414 OXYCODONE-ACETAMINOPHEN Inactive LC-4 LIDOCAINE 4 % EXT CREA apply q 6 hours, prn 08/03 LC-4 LIDOCAINE 4 % EXT CREA 4768666 LIDOCAINE Inactive PROMETHAZINE HCL 25 MG TABS 1 four times a day as needed for nausea/vomiting PROMETHAZINE HCL 25 MG TABS 069079 PROMETHAZINE HCL Inactive LC-4 LIDOCAINE 4 % EXT CREA apply to painful area every 12 h ours or as needed LC-4 LIDOCAINE 4 % EXT CREA 2790028 LIDOCAINE Inactive PERCOCET 10-325 MG ORAL TABS 1 every 4 hous as needed PERCOCET 10-325 MG ORAL TABS 1631137 OXYCODONE-ACETAMINOPHEN Inactiv e GLYDO 2 % EXT GEL apply to painful areas as needed 201 12/10/13 GLYDO 2 % EXT GEL 6620388 LIDOCAINE HCL Inactive TTAXILRLOB-ZMKA-IPCJJCCA 50-325-40 MG ORAL TABS 1 po TID PRN Headaches PLKAFVMFQB-YBTR-HGHEMMHN 50-325-40 MG ORAL TABS 805936 YYXGJZYPFC-VTKZ-MLHJKKZA Inactive AMOXICILLIN 875 MG TABS 1 tab by mouth twice daily 201 07/18/07 AMOXICILLIN 875 MG TABS 512594 AMOXICILLIN Inactive KEFLEX 500 MG CAP 1 po tid x 10 days KEFLEX 500 MG CAP 898618 CEPHALEXIN Inactive AMOXICILLIN 875 MG TABS 1 tab by mouth twice daily 201 07/19/27 AMOXICILLIN 875 MG TABS 815514 AMOXICILLIN Inactive AMOXICILLIN 875 MG TABS 1 tab by mouth twice daily 201 08/09/13 AMOXICILLIN 875 MG TABS 838162 AMOXICILLIN Inactive CIPRO 500 MG TAB 1 tablet by mouth twice daily CIPRO 500 MG TAB 644436 CIPROFLOXACIN HCL Inactive BACTRIM DS 800-160 MG TAB 1 tab by mouth twice daily 2 BACTRIM DS 800-160 MG TAB 138002 TRIMETHOPRIM-SULFAMETHOXAZOLE Inac tive LEVAQUIN 500 MG TABS 1 PO q day x 7 days LEVAQUIN 500 MG TABS 590209 LEVOFLOXACIN Inactive CLINDAMYCIN HCL 300 MG CAPS 1 po QID x 7 days CLINDAMYCIN HCL 300 MG CAPS 634850 CLINDAMYCIN HCL Inactive AUGMENTIN 875-125 MG TAB 1 tab by mouth twice daily with food 20 22/05/07 AUGMENTIN 875-125 MG TAB 920497 AMOXICILLIN-POT [place] Inactive DIFLUCAN 150 MG TAB 1 qODay x 2 doses DIFLUCAN 150 MG TAB 351259 FLUCONAZOLE Inactive PREDNISONE 20 MG TAB 2 tabs daily for 3 days, 1 t ab daily for 3 days, 1/2 tab daily for 2 days PREDNISONE 20 MG TAB 163212 PREDNISON E Inactive AUGMENTIN 875-125 MG TAB 1 tab by mouth twice daily with food 20 21/10/13 AUGMENTIN 875-125 MG TAB 673210 AMOXICILLIN-POT [place] Inactive HYDROCODONE-ACETAMINOPHEN 5-325 MG TABS 1 tab by mouth every 6 hours as needed PRN Pain HYDROCODONE-ACETAMINOPHEN 5-325 MG TABS 8 35268 HYDROCODONE-ACETAMINOPHEN Inactive PROMETHAZINE HCL 25 MG TABS 1 four times a day as needed for nausea/vomiting PROMETHAZINE HCL 25 MG TABS 033717 PROMETHAZINE HCL Inactive AMOXICILLIN 500 MG CAPS 2 po BID x 10 days AMOXICILLIN 500 MG CAPS 287376 AMOXICILLIN Inactive Advance Directives Directive Description Start Date PERMISSION TO SHARE Immunizations Vaccine Administration Date Value Standard Alf cription Seasonal influenza vaccine, injectable, containing preservative, for > 3 years old (Afluria, FluLaval, Fluzone, Fluvirin, Fluarix, Agriflu(>= 18 yo)) Fluzone (>3 yrs.) [[id number]] Influenza, seasonal, inject able Seasonal influenza vaccine, injectable, preservative free, for > 3 years old (Afluria, FluLaval, Fluzone, Fluvirin, Fluarix, Agriflu(>= 18 yo)) Fluzone preservative free (>3 yrs.) [[id number]] Influenza, seasonal, injectable, preservative free Seasonal influenza vaccine, injectable, containing preservative, for > 3 years old (Afluria, FluLaval, Fluzone, Fluvirin, Fluarix, Agriflu(>= 18 yo)) Fluzone (>3 yrs.) [[id number]] Influenza, seasonal, inject able Seasonal influenza vaccine, injectable, containing preservative, for > 3 years old (Afluria, FluLaval, Fluzone, Fluvirin, Fluarix, Agriflu(>= 18 yo)) Fluzone (>3 yrs.) [[id number]] Influenza, seasonal, inject able dT (Diphtheria and [...] - 3141-9 230 [lb_av] Weigh t Measured Diagnostic Results Date Name Value Unit Range Description Lab Report: CBC - Hematology mean corpuscular hemoglobin concentration, RBC 34.5 G/DL % 31.8-35.4 red blood cell distribution width 13.4 % 11 .6-14.8 platelet count 294 10^3/MM^3 10*3/mm3 662-491 7266/08/27 mean corpuscular hemoglobin, RBC 30.2 pg 27. 0-31.2 mean corpuscular volume, RBC 88 fL 80-97 hematocrit, blood 44.6 % 36.0-46.0 hemoglobin, blood 15.4 g/dL 12.0-16.0 erythrocyte (RBC) count 5.08 10^6/MM^3 10*6/mm3 4.04-5.4 8 Lab Report: CBC W/DIFF - Hematology red blood cell distribution width 13.5 % 11 .6-14.8 platelet count 430 10^3/MM^3 10*3/mm3 435-233 6195/02/24 leukocyte count, blood 10.3 10^3/MM^3 10*3/mm3 4.6-10.2 [...] hemoglobin concentration, RBC 35.0 G/DL % 31.8-35.4 Lab Report: Comp. Metabolic Panel, Thyro id Stimulating Hormone (L), MICR ... - Chemistry sodium, serum 137 mmol/L 031-986 4423/02/24 carbon dioxide, venous blood 26.3 mmol/L 21.0-32 [...] Panel - Chemistry cholesterol, serum 181 mg/dL 902-468 8989/09/01 triglyceride, serum, fasting 341 mg/dL 30-200 HDL [...] negative Encounters Code Encounter Date Provider Facility CPT-51655 Level 3 Est. Patient 16:33:24 CDT Kalpesh goins MD [facility] CPT-27840 Level 3 Est. Patient 08:29:37 CDT Hira Alessandra garciaosei [facility] CPT-61064 Level 3 Est. Patient 10:28:25 CDT Hira Alessandra garciaosei [facility] CPT-01833 Level 4 Est. Patient 16:38:26 ANALYTICS ASSOCIATE Abdirahman Rios MD [facility] CPT-41698 Level 3 Est. Patient 05:31:41 ANALYTICS ASSOCIATE Kalpesh goins MD [facility]-37209 Level 3 Est. Patient 11:22:02 ANALYTICS ASSOCIATE Hira Aparicio radhaosei [facility] CPT-40161 Level 3 Est. Patient 21:00:18 ANALYTICS ASSOCIATE Rajni Oconnor [facility] CPT-88157 Level 3 Est. Patient 14:15:00 ANALYTICS ASSOCIATE Kalpesh goins MD [facility] CPT-52150 Level 2 Est. Patient 19:57:52 ANALYTICS ASSOCIATE Rajni danielson [facility] CPT-02952 Level 3 Est. Patient 16:58:40 ANALYTICS ASSOCIATE Bj funes MD [facility] CPT-54450 Level 3 Est. Patient 08:51:33 CDT Kalpesh goins MD [facility] CPT-29193 Level 4 Est. Patient 14:14:53 CDT Abdirahman Rios MD [facility] CPT-92294 Level 3 Est. Patient 15:47:40 CDT Kalpesh goins MD [facility] CPT-92239 Level 3 Est. Patient 10:57:26 CDT Abdirahman Rios MD [facility] CPT-09655 Level 3 Est. Patient 14:29:53 CDT Abhinav Galvan MD [facility] CPT-95109 Level 2 Est. Patient 16:33:01 CDT Kalpesh goins MD [facility] CPT-87391 Level 4 Est. Patient 16:44:56 CDT Abdirahman Rios MD [facility] CPT-39381 Level 2 Est. Patient 07:49:32 CDT Kalpesh goins MD [facility] CPT-71491 Level 3 New Patient 15:47:11 ANALYTICS ASSOCIATE Bj huber MD [facility] CPT-27478 Level 4 Est. Patient 14:37:38 ANALYTICS ASSOCIATE Abdirahman Rios MD [facility] CPT-37301 Level 2 Est. Patient 13:32:17 ANALYTICS ASSOCIATE Kalpesh goins MD [facility] CPT-43980 Level 3 Est. Patient 17:32:57 ANALYTICS ASSOCIATE Edilberto tiwari [facility] CPT-46738 Level 3 Est. Patient 17:22:33 ANALYTICS ASSOCIATE Edilberto tiwari [facility] CPT-70397 Level 2 Est. Patient 16:57:09 ANALYTICS ASSOCIATE Kalpesh goins MD [facility]-51628 Level 3 Est. Patient 14:03:08 ANALYTICS ASSOCIATE Abdirahman Rios MD [facility] CPT-19055 Level 3 Est. Patient 18:12:34 CDT Shola Wright [facility] CPT-10347 Level 3 Est. Patient 19:34:46 CDT Shola Wright [facility] CPT-06912 Level 3 Est. Patient 14:19:37 CDT Abdirahman Rios MD [facility] CPT-15690 Level 3 Est. Patient 14:11:58 CDT Kalpesh goins MD [facility] CPT-21444 Level 3 Est. Patient 16:50:00 CDT Michelle MERCADO [facility] CPT-44138 Level 3 Est. Patient 17:11:32 ANALYTICS ASSOCIATE Brandie bates MD PhD [facility] CPT-85986 Level 3 Est. Patient 16:31:47 ANALYTICS ASSOCIATE Shola Wright [facility] CPT-76207 Level 3 Est. Patient 17:51:10 ANALYTICS ASSOCIATE Abhinav Galvan MD [facility] CPT-48079 Level 4 Est. Patient 12:54:56 ANALYTICS ASSOCIATE Kalpesh goins MD [facility]-12160 Level 4 Est. Patient 12:53:56 ANALYTICS ASSOCIATE Kalpesh goins MD [facility] CPT-44085 Level 3 Est. Patient 17:56:58 CDT Shola Keesha Adriana [facility] CPT-02043 Level 3 Est. Patient 14:26:20 CDT Janak butcher [facility] CPT-45806 Level 3 Est. Patient 09:38:41 CDT Shola Thao [facility] CPT-10687 Level 3 Est. Patient 14:45:26 CDT Edilberto tiwari [facility] CPT-02148 Level 3 Est. Patient 10:51:33 CDT [facility] CPT-31378 Level 3 Est. Patient 11:57:55 ANALYTICS ASSOCIATE Shola Thao Adriana [facility] CPT-99439 Level 3 Est. Patient 09:53:33 ANALYTICS ASSOCIATE Edilberto tiwari [facility] CPT-63573 Level 3 Est. Patient 14:42:54 ANALYTICS ASSOCIATE Abhinav Galvan MD [facility] CPT-75897 Level 3 Est. Patient 15:10:02 CDT Janak butcher [facility] CPT-74214 Level 3 Est. Patient 15:20:20 CDT Theo dennis MD [facility] CPT-27350 Level 2 Est. Patient 14:08:57 CDT Kalpesh goins MD [facility]-33723 Level 3 Est. Patient 13:56:19 CDT Abdirahman Rios MD [facility] CPT-07783 Level 3 Est. Patient 13:59:37 CDT Abdirahman Rios MD [facility] CPT-47175 Level 2 Est. Patient 14:44:59 CDT Kalpesh goins MD [facility] CPT-32169 Level 3 Est. Patient 06:06:23 CDT Edilberto tiwari DO [facility] CPT-39539 Level 3 Est. Patient 15:23:54 CDT Abdirahman Rios MD [facility] CPT-33607 Level 3 Est. Patient 15:43:49 CDT Abdirahman Rios MD [facility] CPT-07728 Level 3 Est. Patient 12:46:47 ANALYTICS ASSOCIATE Abdirahman Rios MD [facility] CPT-54401 Level 3 Est. Patient 08:13:35 ANALYTICS ASSOCIATE Abdirahman Rios MD [facility] CPT-42469 Level 2 Est. Patient 09:36:42 ANALYTICS ASSOCIATE Abdirahman Rios MD [facility] CPT-26493 Level 3 Est. Patient 10:56:43 CDT Abdirahman Rios MD [facility] CPT-16890 Level 3 Est. Patient 18:24:52 CDT Abdirahman Rios MD [facility] CPT-97055 Level 3 Est. Patient 13:27:22 CDT Abdirahman Rios MD [facility] Procedures Code Procedure Name Date Entry Date Standard Desc ription CPT-22394 Postop F/U Visit 16:21:51 ANALYTICS ASSOCIATE CPT-61411 Postop F/U Visit 17:09:41 ANALYTICS ASSOCIATE CPT-03862 Postop F/U Visit 14:08:43 ANALYTICS ASSOCIATE CPT-40328 Postop F/U Visit 15:18:16 ANALYTICS ASSOCIATE CPT-74682 Postop F/U Visit 15:03:49 ANALYTICS ASSOCIATE CPT-09608 Postop F/U Visit 14:45:23 ANALYTICS ASSOCIATE CPT-98630 Postop F/U Visit 14:11:03 ANALYTICS ASSOCIATE CPT-74312 Postop F/U Visit 18:21:21 ANALYTICS ASSOCIATE CPT-80369 Postop F/U Visit 15:57:12 ANALYTICS ASSOCIATE CPT-80518 Bladder Instillation 16:58:41 ANALYTICS ASSOCIATE 6 CPT-30326 Fluzone Quadrivalent Intramuscular Suspe nsion 0.5 ML 15:20:56 ANALYTICS ASSOCIATE CPT-45147 Immunization Single Admin 15:20:56 ANALYTICS ASSOCIATE 2014 CPT-61763 Excis pilonidal cyst simple 08:51:34 CDT 22/04/20 CPT-58569 Venipuncture Draw Fee 14:27:29 CDT CPT-80021 Postop F/U Visit 15:27:43 CDT CPT-75357 Postop F/U Visit 14:40:59 CDT CPT-83626 Postop F/U Visit 15:02:46 CDT CPT-49571 Postop F/U Visit 11:29:00 ANALYTICS ASSOCIATE CPT-J0696 Rocephin 1000 mg (Ceftriaxone) 17:22:33 ANALYTICS ASSOCIATE CPT-45485 Postop F/U Visit 18:41:07 ANALYTICS ASSOCIATE CPT-41836 Postop F/U Visit 08:19:08 ANALYTICS ASSOCIATE CPT-87044 Immunization Single Admin 16:41:53 CDT 2013 CPT-86569 Fluzone Quadrivalent Intramuscular Suspe nsion 0.5 ML 16:41:53 CDT CPT-OV Office Visit 16:39:18 CDT CPT-OV Office Visit 16:16:36 CDT CPT-OV Office Visit 15:34:48 CDT CPT-42592 Postop F/U Visit 14:50:12 CDT CPT-53496 Postop F/U Visit 14:41:10 CDT CPT-70385 Venipuncture Draw Fee 11:38:04 ANALYTICS ASSOCIATE CPT-06480 Postop F/U Visit 19:02:59 ANALYTICS ASSOCIATE CPT-17153 Postop F/U Visit 12:04:54 ANALYTICS ASSOCIATE CPT-82491 Administration single or combination vac cine inc oral 15:56:43 CDT CPT-67081 Influenza split virus > age 3 15:56:43 CDT CPT-49362 Hand comp min 3V 14:25:19 CDT CPT-28788 Postop F/U Visit 21:40:51 CDT CPT-40266 Postop F/U Visit 10:58:43 CDT CPT-13082 Administration single or combination vac cine inc oral 12:33:54 ANALYTICS ASSOCIATE CPT-20839 Influenza Preservative Free split virus >age 3 12:33:54 ANALYTICS ASSOCIATE CPT-26564 Administration single or combination vac cine inc oral 09:30:51 CDT CPT-38998 Influenza split virus > age 3 09:30:51 CDT CPT-58718 Postop F/U Visit 15:14:53 CDT CPT-95227 Postop F/U Visit 13:50:14 CDT CPT-31980 Postop F/U Visit 13:34:52 CDT CPT-OV Office Visit 16:55:03 CDT CPT-36544 Plush of cervix w bx ECC 13:32:50 CDT 10/19 CPT-J1885 Toradol 60 mg (Ketorolac) 15:31:59 CDT 2011 CPT-J1885 Toradol 60 mg (Ketorolac) 15:23:54 CDT 2011 CPT-31429 Visit 11:34:37 ANALYTICS ASSOCIATE CPT-88477 Visit 10:52:39 ANALYTICS ASSOCIATE CPT-43208 Visit 10:12:02 ANALYTICS ASSOCIATE CPT-99939 Visit 11:22:43 ANALYTICS ASSOCIATE CPT-03663 Visit 11:24:12 ANALYTICS ASSOCIATE CPT-22835 Visit 10:47:05 ANALYTICS ASSOCIATE CPT-OV Office Visit 10:26:16 ANALYTICS ASSOCIATE CPT-OV Office Visit 15:34:31 ANALYTICS ASSOCIATE CPT-64488 Visit 10:42:08 ANALYTICS ASSOCIATE CPT-06655 Visit 10:52:45 ANALYTICS ASSOCIATE CPT-000 Give Appropriate Flu Vaccine 16:56:41 CDT 2 CPT-84854 Administration single or combination vac cine inc oral 10:33:21 CDT CPT-18271 Influenza split virus > age 3 10:33:21 CDT CPT-60996 Visit 13:23:09 CDT CPT-58482 Visit 18:24:52 CDT CPT-74047 Sono OB comp > 14 weeks 12:07:49 CDT 04/07
--- OUTSIDE RECORDS SUMMARY | 2020-01-18 16:10 | XMS REPORT | Clinical Summary ---
Author Author Admin, Jeri Rashid Organization [facility] Address Unknown Phone Unavailable Allergies, Adverse Reactions, [...] NEC Abscess, perirectal 566 Active Hira roman [employer] Abscess of anal and rectal regions , [...] Generic Name NDC Status Provider Patient Instruction AUGMENTIN 875-125 MG TAB 1 tab by mouth twice daily with food 20 21/10/13 AMOXICILLIN-POT CLAVULANATE 53080316802 Active Hira mckeon [employer]IST Active PERCOCET 10-325 MG ORAL TABS 1 every 4 hours as needed OXYCODONE-ACETAMINOPHEN 79440060156 Active Hira Perazal [employer]IST Active PROAIR HFA 108 (90 BASE) MCG/ACT AERS 2 puff q 4-6 hrs PRN 01/24 ALBUTEROL SULFATE 74575225004 No Longer Active Kalpesh Dong MD Active ALPRAZOLAM 0.5 MG TABS 1 po BID PRN Anxiety ALPRA ZOLAM 29744980025 Active Abdirahman Rios MD Active EMLA 2.5-2.5 % EXT CREA apply to skin lesion q 6 hours, prn LIDOCAINE-PRILOCAINE 26154128567 Active Hira Moser [employer]IST Active CYCLOBENZAPRINE HCL 10 MG TABS 1 tablet by mouth three times daily as needed for muscle spasm/pain CYCLOBENZAPRINE HCL 43910870047 Active Abdirahman Rios MD Active PREDNISONE 20 MG TAB 2 tabs daily for 3 days, 1 t ab daily for 3 days, 1/2 tab daily for 2 days PREDNISONE 88469940002 No Longer Active Abdirahman Rios MD Active KEFLEX 500 MG CAP 1 po qid CEPHALEXIN 493259199 20 No Longer Active Kalpesh Dong MD Active PERCOCET 5-325 MG TAB 1 every 6 hours as needed OXYCODONE-ACETAMINOPHEN 57169168103 No Longer Active Shola MCGILL Active LC-5 LIDOCAINE 5 % CREA apply 1 time daily to affected area 2013 LIDOCAINE (ANORECTAL) 55156181207 No Longer Active Hira muniz APRN Active HYDROCODONE-ACETAMINOPHEN 5-325 MG TABS 2 tablets by m outh every 8 hours as needed for pain HYDROCODONE-ACETAMINOPHEN 42913874188 Acti ve Rajni Yokum [employer]IST Active HYDROCODONE-ACETAMINOPHEN 10-325 MG TABS 1 by mouth ev chaka 8 hours as needed for pain HYDROCODONE-ACETAMINOPHEN 53669133550 No Longer Active Jillina Frazell [employer]S [employer]IST Active LORATADINE 10 MG TABS 1 tablet by mouth daily L ORATADINE 75443426419 No Longer Active Jillina Frazell [employer]IVE [employer]S [employer]IST Active DIFLUCAN 150 MG TAB 1 qODay x 2 doses FLUCONAZO LE 83393307368 No Longer Active Jillina Frazell [employer]S [employer]IST Active CYCLOBENZAPRINE HCL 10 MG TABS 1/2 - 1 tab PO tid PRN back p ain, muscle spasm CYCLOBENZAPRINE HCL 57698135115 No Longer Active Karen herson Frazell [employer]IVE [employer]S SPECIALIST Active AUGMENTIN 875-125 MG TAB 1 tab by mouth twice daily with food 20 22/05/07 AMOXICILLIN-POT CLAVULANATE 72399202679 No Longer Active Loida Rios MD Active MOBIC 15 MG TABS 1 tab daily MELOXICAM 125222247 14 No Longer Active Abdirahman Rios MD Active PERCOCET 7.5-325 MG TABS 1 PO tid PRN pain OXYCODONE-ACETAMINOPHEN 12888121623 No Longer Active Abdirahman Rios MD Active LIDODERM 5 % PTCH One patch to painful area [place] N. On for 12 hrs, off for 12 hrs. LIDOCAINE 06381566235 No Longer Active Abdirahman Rios MD Active PERCOCET 7.5-325 MG TABS 1 PO q 8 hrs PRN pain OXYCODONE-ACETAMINOPHEN 94797134306 No Longer Active Shola MCGILL Active HYDROCODONE-ACETAMINOPHEN 7.5-325 MG TABS 1 by mouth e very 6 hours as needed for pain HYDROCODONE-ACETAMINOPHEN 38971430226 No Longer Active Good Julian MD Active CLINDAMYCIN HCL 300 MG CAPS 1 po QID x 7 days CLINDAMYCIN HCL 07522036700 No Longer Active Abdirahman Rios MD Activ e BACTRIM DS 800-160 MG TABS 1 po BID x 7 days 5 SULFAMETHOXAZOLE-TRIMETHOPRIM 44602316382 No Longer Active Abdirahman Rios MD Active ENDOCET 10-325 MG TABS 1 q 6 hr prn OXYCODONE-ACETAMINOPHEN 37267903222 No Longer Active Abdirahman Rios MD Active IBUPROFEN 800 MG TABS 1 tid prn IBUPROFEN 027869 17227 No Longer Active Abdirahman Rios MD Active BACTRIM DS 800-160 MG TABS by mouth twice a day 11/05 SULFAMETHOXAZOLE-TRIMETHOPRIM 68420110947 No Longer Active Good Julian MD Active HYDROCODONE-ACETAMINOPHEN 7.5-325 MG TABS 1 four times a day as needed for pain HYDROCODONE-ACETAMINOPHEN 01116216946 No Longer Activ e Good Julian MD Active KEFLEX 500 MG CAP 1 tab po tid CEPHALEXIN 499197 44977 No Longer Active Matthewllherson Moser APRN Active IBUPROFEN 800 MG TAB 1 pill three times daily as needed for pain IBUPROFEN 35995568528 No Longer Active Kalpesh Dong MD Active PROMETHAZINE-CODEINE 6.25-10 MG/5ML SYRP 1 tsp every 6 hrs prn c ough PROMETHAZINE-CODEINE 58470281641 No Longer Active Kalpesh Carr Active HYDROCODONE-ACETAMINOPHEN 5-325 MG TABS 1 tab by mouth every 6 hours as needed HYDROCODONE-ACETAMINOPHEN 78090075663 No Longer Activ e Shola MCGILL Active CEPHALEXIN 500 MG CAPS 1 PO bid x 7 days CEPHAL EXIN 25557840361 No Longer Active Shola MCGILL Active BACTRIM DS 800-160 MG TAB 1 tab by mouth twice daily 2 TRIMETHOPRIM-SULFAMETHOXAZOLE 04350160496 No Longer Active Kalpesh Dong MD Active HYDROCODONE-ACETAMINOPHEN 5-325 MG TABS 1 PO tid PRN pain 5 HYDROCODONE-ACETAMINOPHEN 23678756622 No Longer Active Abhinav Galvan MD Active IMPLANON 68 MG IMPL IMPLANTED IN LEFT ARM ETONO GESTREL 18907988712 No Longer Active Hira Moser [employer]IST Active AMOXICILLIN 500 MG TABS 2 tabs PO bid x 10 d AM OXICILLIN 58765362292 No Longer Active Kalpesh Dong MD Active LEVAQUIN 500 MG TABS 1 PO q day x 7 days LEVOFL OXACIN 33085830183 No Longer Active Shola MCGILL Active FIORICET 50-325-40 MG TABS 2 PO q 8 hrs PRN FOSTER NWOEHBHYHJ-OACU-NUVNAUMO Active Abdirahman Rios MD Active AMITRIPTYLINE HCL 25 MG TAB 1 tab by mouth daily 60 minutes before bedtime AMITRIPTYLINE HCL 30738200917 No Longer Active Shola MCGILL Active LORTAB 5 5-500 MG TABS 1/2 to 1 tablet by mouth go ry 6 hours as needed for pain HYDROCODONE-ACETAMINOPHEN 40363952527 No Longer Active Shola MCGILL Active CEPHALEXIN 500 MG TABS Take one by mouth four times daily, morning, noon, early evening and bedtime. CEPHALEXIN 73077368093 No Long er Active Hira Moser APRN Active TYLENOL/CODEINE #3 300-30 MG TAB 1-2 po q6hr PRN Pain ACETAMINOPHEN-CODEINE 47135326148 No Longer Active Edilberto Marino DO Active PRISTIQ 50 MG HB65A-NLL 1 po qd DESVENLAFAXI NE SUCCINATE 97496563272 No Longer Active Edilberto Marino DO Active PENICILLIN V POTASSIUM 500 MG TAB 1 four times a day 2 PENICILLIN V POTASSIUM 54547675451 No Longer Active Edilberto Marino DO Active DOXYCYCLINE HYCLATE 100 MG CAPS Take one (1) tablet by mouth twice a day DOXYCYCLINE HYCLATE 06534416373 No Longer Active Ronnie Galvan MD Active HYDROCODONE-ACETAMINOPHEN 5-325 MG TABS 1 po q 6hr PRN Pain 2011 HYDROCODONE-ACETAMINOPHEN 72680991962 No Longer Active Patri joan Perez RN Active BACTRIM DS 800-160 MG TAB 1 tab by mouth twice daily 2 TRIMETHOPRIM-SULFAMETHOXAZOLE 93332016422 No Longer Active Kalpesh Dong MD Active LORTAB 5 5-500 MG TABS 1/2 to 1 tablet by mouth go ry 4 hours as needed for pain HYDROCODONE-ACETAMINOPHEN 06142995999 No Longer Active Kalpesh Dong MD Active GENERESS FE 0.8-25 MG-MCG CHEW Take one by mouth daily NORETHIN-ETH ESTRADIOL-FE 41881293897 No Longer Active Kalpesh Dong MD Active HYDROCODONE-ACETAMINOPHEN 7.5-500 MG TABS 1-2 every 4 hours as needed HYDROCODONE-ACETAMINOPHEN 44503504546 No Longer Activ e Kalpesh Dong MD Active FERROUS SULFATE 325 (65 FE) MG TABS 1 tablet by mouth twice yung y FERROUS SULFATE 52069819920 No Longer Active Kalpesh Dong MD Active IBUPROFEN 600 MG TAB 1 po q6-8hr PRN IBUPROFEN 72822363808 No Longer Active Kalpesh Dong MD Active SPIRONOLACTONE 25 MG TAB 1 tablet by mouth daily 01/22 SPIRONOLACTONE 98229316910 No Longer Active Kalpesh Dong MD Acti ve HYDROCODONE-ACETAMINOPHEN 7.5-325 MG TABS 1 po QID PRN Pain 2011 HYDROCODONE-ACETAMINOPHEN 13469763817 No Longer Active Kalpesh Dong MD Active CLINDAMYCIN HCL 300 MG CAPS 1 po q6hr x 7 days CLINDAMYCIN HCL 25677162918 No Longer Active Edilberto Marino DO Active PREDNISONE 20 MG TAB 2 tabs daily for 4 days, 1 t ab daily for 4 days, 1/2 tab daily for 4 days PREDNISONE 94672667860 No Longer Active Edilberto Marino DO Active PERCOCET 5-325 MG TABS 1 tablet by mouth every 6 hours as ne eded for pain OXYCODONE-ACETAMINOPHEN 85682488904 No Longer Active Abdirahman Rios MD Active VITAMINS TABS Take one by mouth daily MV & MIN W/FE-FA TABS 91901626778 No Longer Active Abdirahman Rios MD Active LUIS 3-0.02 MG TABS 1 tablet by mouth daily as directed DROSPIRENONE-ETHINYL ESTRADIOL 19255867979 No Longer Active Abdirahman Rios MD Active LORATADINE 10 MG TABS 1 tablet by mouth daily L ORATADINE 65049936426 No Longer Active Kalpesh Dong MD Active HYDROCODONE-ACETAMINOPHEN 5-325 MG TABS 1 po q 6hr PRN Pain 2010 HYDROCODONE-ACETAMINOPHEN 82203601057 No Longer Active Edilberto Marino DO Active BACTRIM DS 800-160 MG TAB 1 tab by mouth twice daily 2 TRIMETHOPRIM-SULFAMETHOXAZOLE 97611512428 No Longer Active Abdirahman Rios MD Active 28-0.8 MG TABS Take one by mouth daily 09/20 VIT-FE FUMARATE-FA 93717756026 No Longer Active Abdirahman Rios MD Active CIPRO 500 MG TAB 1 tablet by mouth twice daily CIPROFLOXACIN HCL 62034180545 No Longer Active Abdirahman Rios MD Active BENADRYL 25 MG CAP 1 po q8hr PRN Congestion DIPHENHYDRAMINE HCL 53593969515 No Longer Active Abdirahman Rios MD Active ZOLOFT 50 MG TAB 1 po qd SERTRALINE HCL 985335 42733 No Longer Active Abdirahman Rios MD Active AMOXICILLIN 875 MG TABS 1 tab by mouth twice daily 201 08/09/13 AMOXICILLIN 67808770685 No Longer Active Abdirahman Rios MD Activ e AMOXICILLIN 875 MG TABS 1 tab by mouth twice daily 201 07/19/27 AMOXICILLIN 44130109286 No Longer Active Abdirahman Rios MD Activ e BACTRIM DS 800-160 MG TAB 2 tab by mouth twice daily 2 TRIMETHOPRIM-SULFAMETHOXAZOLE 39078375919 No Longer Active Abdirahman Rios MD Active KEFLEX 500 MG CAP 1 po tid x 10 days CEPHALEXIN 63575125837 No Longer Active Abdirahman Rios MD Active AMOXICILLIN 875 MG TABS 1 tab by mouth twice daily 201 07/18/07 AMOXICILLIN 75326973156 No Longer Active Abdirahman Rios MD Activ e BACTRIM DS 800-160 MG TAB 2 tab by mouth twice daily 2 BACTRIM DS 800-160 MG TAB TRIMETHOPRIM-SULFAMETHOXAZOLE Inactive ZOLOFT 50 MG TAB 1 po qd ZOLOFT 50 MG TAB 3129 41 SERTRALINE HCL Inactive BENADRYL 25 MG CAP 1 po q8hr PRN Congestion BENADRYL 25 MG CAP 1423173 DIPHENHYDRAMINE HCL Inactive 28-0.8 MG TABS Take one by mouth daily 09/20 28-0.8 MG TABS VIT-FE FUMARATE-FA Inactive HYDROCODONE-ACETAMINOPHEN 5-325 MG TABS 1 po q 6hr PRN Pain 2010 HYDROCODONE-ACETAMINOPHEN 5-325 MG TABS 614937 HYDROCODONE-ACETAMINOPHEN Inactive LORATADINE 10 MG TABS 1 tablet by mouth daily LORATADINE 10 MG TABS 907860 LORATADINE Inactive LUIS 3-0.02 MG TABS 1 tablet by mouth daily as directed LUIS 3-0.02 MG TABS DROSPIRENONE-ETHINYL ESTRADIOL Inactive VITAMINS TABS Take one by mouth daily VITAMINS TABS MV & MIN W/FE-FA TABS Inactive PERCOCET 5-325 MG TABS 1 tablet by mouth every 6 hours as ne eded for pain PERCOCET 5-325 MG TABS 6551162 OXYCODONE-ACETAMIN OPHEN Inactive PREDNISONE 20 MG TAB 2 tabs daily for 4 days, 1 t ab daily for 4 days, 1/2 tab daily for 4 days PREDNISONE 20 MG TAB 429691 PREDNISON E Inactive CLINDAMYCIN HCL 300 MG CAPS 1 po q6hr x 7 days CLINDAMYCIN HCL 300 MG CAPS 783258 CLINDAMYCIN HCL Inactive HYDROCODONE-ACETAMINOPHEN 7.5-325 MG TABS 1 po QID PRN Pain 2011 HYDROCODONE-ACETAMINOPHEN 7.5-325 MG TABS 398834 HYDROCODONE-ACETAMINOPHEN Inactive SPIRONOLACTONE 25 MG TAB 1 tablet by mouth daily 01/22 SPIRONOLACTONE 25 MG TAB 899301 SPIRONOLACTONE Inactive IBUPROFEN 600 MG TAB 1 po q6-8hr PRN IBUPROFEN 600 MG TAB 524288 IBUPROFEN Inactive FERROUS SULFATE 325 (65 FE) MG TABS 1 tablet by mouth twice yung y FERROUS SULFATE 325 (65 FE) MG TABS 731977 FERROUS SULF ATE Inactive HYDROCODONE-ACETAMINOPHEN 7.5-500 MG [...] PRN Pain 2011 HYDROCODONE-ACETAMINOPHEN 5-325 MG TABS 974421 HYDROCODONE-ACETAMINOPHEN Inactive DOXYCYCLINE HYCLATE 100 MG CAPS Take one (1) tablet by mouth twice a day DOXYCYCLINE HYCLATE 100 MG CAPS 640146 DOXYCYCLINE HYCLATE Inactive PENICILLIN V POTASSIUM 500 MG TAB 1 four times a day 2 PENICILLIN V POTASSIUM 500 MG TAB 421455 PENICILLIN V POTASSIUM [place] ctive PRISTIQ 50 MG [id number] 1 po qd PRISTIQ 50 MG [id number] DESVENLAFAXINE SUCCINATE Inactive TYLENOL/CODEINE #3 300-30 MG TAB 1-2 po q6hr PRN Pain TYLENOL/CODEINE #3 300-30 MG TAB 318548 ACETAMINOPHEN-CODEINE Inact krishna CEPHALEXIN 500 MG TABS Take one by mouth four times daily, morning, noon, early evening and bedtime. CEPHALEXIN 500 MG TABS 942091 CEPHALEXIN Inactive LORTAB 5 5-500 MG TABS 1/2 to 1 tablet by mouth go ry 6 hours as needed for pain LORTAB 5 5-500 MG TABS HYDROCODONE-A CETAMINOPHEN Inactive AMITRIPTYLINE HCL 25 MG TAB 1 tab by mouth daily 60 minutes before bedtime AMITRIPTYLINE HCL 25 MG TAB 564061 AMITRIPTYLINE HCL Inactive AMOXICILLIN 500 MG TABS 2 tabs PO bid x 10 d 7 AMOXICILLIN 500 MG TABS 792464 AMOXICILLIN Inactive IMPLANON 68 MG IMPL IMPLANTED IN LEFT ARM IMPLANON 68 MG IMPL ETONOGESTREL Inactive HYDROCODONE-ACETAMINOPHEN 5-325 MG TABS 1 PO tid PRN pain 5 HYDROCODONE-ACETAMINOPHEN 5-325 MG TABS 619267 HYDROCODONE-ACETAMIN OPHEN Inactive BACTRIM DS 800-160 MG TAB 1 tab by mouth twice daily 2 BACTRIM DS 800-160 MG TAB TRIMETHOPRIM-SULFAMETHOXAZOLE Inac tive CEPHALEXIN 500 MG CAPS 1 PO bid x 7 days CEPHALEXIN 500 MG CAPS 879309 CEPHALEXIN Inactive HYDROCODONE-ACETAMINOPHEN 5-325 MG TABS 1 tab by mouth every 6 hours as needed HYDROCODONE-ACETAMINOPHEN 5-325 MG TABS 790298 HYDROCODONE-ACETAMINOPHEN Inactive PROMETHAZINE-CODEINE 6.25-10 MG/5ML SYRP 1 tsp every 6 hrs prn c ough PROMETHAZINE-CODEINE 6.25-10 MG/5ML SYRP 878371 PROMETH AZINE-CODEINE Inactive IBUPROFEN 800 MG TAB 1 pill three times daily as needed for pain IBUPROFEN 800 MG TAB 223631 IBUPROFEN Inactive KEFLEX 500 MG CAP 1 tab po tid KEFLEX 500 MG CAP 981297 CEPHALEXIN Inactive HYDROCODONE-ACETAMINOPHEN 7.5-325 MG TABS 1 four times a day as needed for pain HYDROCODONE-ACETAMINOPHEN 7.5-325 MG TABS 529982 HYDROCODONE-ACETAMINOPHEN Inactive BACTRIM DS 800-160 MG TABS by mouth twice a day 11/05 BACTRIM DS 800-160 MG TABS SULFAMETHOXAZOLE-TRIMETHOPRIM Inactive IBUPROFEN 800 MG TABS 1 tid prn IBUPROFEN 800 MG TABS 777521 IBUPROFEN Inactive ENDOCET 10-325 MG TABS 1 q 6 hr prn ENDOC ET 10-325 MG TABS 4490671 OXYCODONE-ACETAMINOPHEN Inactive HYDROCODONE-ACETAMINOPHEN 7.5-325 MG TABS 1 by mouth e very 6 hours as needed for pain HYDROCODONE-ACETAMINOPHEN 7.5-325 MG TABS 944838 HYDROCODONE-ACETAMINOPHEN Inactive PERCOCET 7.5-325 MG TABS 1 PO q 8 hrs PRN pain PERCOCET 7.5-325 MG TABS 2606148 OXYCODONE-ACETAMINOPHEN Inactive LIDODERM 5 % PTCH One patch to painful area [place] N. On for 12 hrs, off for 12 hrs. LIDODERM 5 % [facility] 1371466 LIDOCAINE Inactiv e PERCOCET 7.5-325 MG TABS 1 PO tid PRN pain PERCOCET 7.5- 325 MG TABS 1843051 OXYCODONE-ACETAMINOPHEN Inactive MOBIC 15 MG TABS 1 tab daily MOBIC 15 MG TABS 15 2695 MELOXICAM Inactive CYCLOBENZAPRINE HCL 10 MG TABS 1/2 - 1 tab PO tid PRN back p ain, muscle spasm CYCLOBENZAPRINE HCL 10 MG TABS 698161 CYCLOBENZA JOSEPH HCL Inactive LORATADINE 10 MG TABS 1 tablet by mouth daily LORATADINE 10 MG TABS 938071 LORATADINE Inactive HYDROCODONE-ACETAMINOPHEN 10-325 MG TABS 1 by mouth ev chaka 8 hours as needed for pain HYDROCODONE-ACETAMINOPHEN 10-325 MG TABS 992602 HYDROCODONE-ACETAMINOPHEN Inactive LC-5 LIDOCAINE 5 % CREA apply 1 time daily to affected area 2013 LC-5 LIDOCAINE 5 % CREA LIDOCAINE (ANORECTAL) In active PERCOCET 5-325 MG TAB 1 every 6 hours as needed PERCOCET 5-325 MG TAB 5012984 OXYCODONE-ACETAMINOPHEN Inactive KEFLEX 500 MG CAP 1 po qid KEFLEX 500 MG CAP 30 9114 CEPHALEXIN Inactive PROAIR HFA 108 (90 BASE) MCG/ACT AERS 2 puff q 4-6 hrs PRN 01/24 PROAIR HFA 108 (90 BASE) MCG/ACT AERS ALBUTEROL SULFATE Inactive AMOXICILLIN 875 MG TABS 1 tab by mouth twice daily 201 07/18/07 AMOXICILLIN 875 MG TABS 455349 AMOXICILLIN Inactive KEFLEX 500 MG CAP 1 po tid x 10 days KEFLEX 500 MG CAP 778482 CEPHALEXIN Inactive AMOXICILLIN 875 MG TABS 1 tab by mouth twice daily 201 07/19/27 AMOXICILLIN 875 MG TABS 375062 AMOXICILLIN Inactive AMOXICILLIN 875 MG TABS 1 tab by mouth twice daily 201 08/09/13 AMOXICILLIN 875 MG TABS 435393 AMOXICILLIN Inactive CIPRO 500 MG TAB 1 tablet by mouth twice daily CIPRO 500 MG TAB 150943 CIPROFLOXACIN HCL Inactive BACTRIM DS 800-160 MG TAB 1 tab by mouth twice daily 2 BACTRIM DS 800-160 MG TAB TRIMETHOPRIM-SULFAMETHOXAZOLE Inac tive LEVAQUIN 500 MG TABS 1 PO q day x 7 days LEVAQUIN 500 MG TABS 225625 LEVOFLOXACIN Inactive CLINDAMYCIN HCL 300 MG CAPS 1 po QID x 7 days CLINDAMYCIN HCL 300 MG CAPS 172939 CLINDAMYCIN HCL Inactive AUGMENTIN 875-125 MG TAB 1 tab by mouth twice daily with food 20 22/05/07 AUGMENTIN 875-125 MG TAB 591621 AMOXICILLIN-POT CLAVULA [place] Inactive DIFLUCAN 150 MG TAB 1 qODay x 2 doses DIFLUCAN 150 MG TAB 599757 FLUCONAZOLE Inactive PREDNISONE 20 MG TAB 2 tabs daily for 3 days, 1 t ab daily for 3 days, 1/2 tab daily for 2 days PREDNISONE 20 MG TAB 862529 PREDNISON E Inactive Advance Directives Directive Description Start Date PERMISSION TO SHARE Immunizations Vaccine Administration Date Value Standard Alf cription Seasonal influenza vaccine, injectable, containing preservative, for > 3 years old (Afluria, FluLaval, Fluzone, Fluvirin, Fluarix, Agriflu(>= 18 yo)) Fluzone (>3 yrs.) [[id number]] Influenza, seasonal, inject able Seasonal influenza vaccine, injectable, preservative free, for > 3 years old (Afluria, FluLaval, Fluzone, Fluvirin, Fluarix, Agriflu(>= 18 yo)) Fluzone preservative free (>3 yrs.) [[id number]] Influenza, seasonal, injectable, preservative free Seasonal influenza vaccine, injectable, containing preservative, for > 3 years old (Afluria, FluLaval, Fluzone, Fluvirin, Fluarix, Agriflu(>= 18 yo)) Fluzone (>3 yrs.) [[id number]] Influenza, seasonal, inject able Seasonal influenza vaccine, injectable, containing preservative, for > 3 years old (Afluria, FluLaval, Fluzone, Fluvirin, Fluarix, Agriflu(>= 18 yo)) Fluzone (>3 yrs.) [[id number]] Influenza, seasonal, inject able dT (Diphtheria and [...] - 3141-9 235.2 [lb_av] Weigh t Measured Diagnostic Results Date [...] negative Encounters Code Encounter Date Provider Facility CPT-63996 Level 2 Est. Patient 07:49:32 CDT Kalpesh goins MD [facility] CPT-83980 Level 3 New Patient 15:47:11 NURSE CONSULTANT Bj huber MD [facility] CPT-90124 Level 4 Est. Patient 14:37:38 NURSE CONSULTANT Abdirahman Rios MD [facility] CPT-91336 Level 2 Est. Patient 13:32:17 NURSE CONSULTANT Kalpesh goins MD [facility] CPT-51226 Level 3 Est. Patient 17:32:57 NURSE CONSULTANT Edilberto tiwari [facility] CPT-50677 Level 3 Est. Patient 17:22:33 NURSE CONSULTANT Edilberto tiwari [facility] CPT-60702 Level 2 Est. Patient 16:57:09 NURSE CONSULTANT Kalpesh goins MD [facility]-30550 Level 3 Est. Patient 14:03:08 NURSE CONSULTANT Abdirahman Rios MD [facility] CPT-60415 Level 3 Est. Patient 18:12:34 CDT Shola Wright [facility] CPT-78347 Level 3 Est. Patient 19:34:46 CDT Shola Thao [facility] CPT-27330 Level 3 Est. Patient 14:19:37 CDT Abdirahman Rios MD [facility] CPT-59293 Level 3 Est. Patient 14:11:58 CDT Kalpesh goins MD [facility]-13992 Level 3 Est. Patient 16:50:00 CDT Michelle MERCADO [facility] CPT-44912 Level 3 Est. Patient 17:11:32 NURSE CONSULTANT Brandie bates MD PhD [facility] CPT-46651 Level 3 Est. Patient 16:31:47 NURSE CONSULTANT Shola Wright [facility] CPT-02112 Level 3 Est. Patient 17:51:10 NURSE CONSULTANT Abhinav Galvan MD [facility]-84314 Level 4 Est. Patient 12:54:56 NURSE CONSULTANT Kalpesh goins MD [facility]-68585 Level 4 Est. Patient 12:53:56 NURSE CONSULTANT Kalpesh goins MD [facility]-56043 Level 3 Est. Patient 17:56:58 CDT Shola Wright [facility] CPT-79488 Level 3 Est. Patient 14:26:20 CDT Janak butcher [facility] CPT-24436 Level 3 Est. Patient 09:38:41 CDT Shola Keesha Wright [facility] CPT-73703 Level 3 Est. Patient 14:45:26 CDT Edilberto tiwari [facility] CPT-56842 Level 3 Est. Patient 10:51:33 CDT [facility] CPT-57460 Level 3 Est. Patient 11:57:55 NURSE CONSULTANT Shola Thao Adriana [facility] CPT-26249 Level 3 Est. Patient 09:53:33 NURSE CONSULTANT Edilberto tiwari [facility] CPT-47798 Level 3 Est. Patient 14:42:54 NURSE CONSULTANT Abhinav Galvan MD [facility] CPT-95367 Level 3 Est. Patient 15:10:02 CDT Janak butcher [facility] CPT-50060 Level 3 Est. Patient 15:20:20 CDT Theo dennis MD [facility] CPT-64024 Level 2 Est. Patient 14:08:57 CDT Kalpesh goins MD [facility] CPT-25894 Level 3 Est. Patient 13:56:19 CDT Abdirahman Rios MD [facility] CPT-02842 Level 3 Est. Patient 13:59:37 CDT Abdirahman Rios MD [facility] CPT-02980 Level 2 Est. Patient 14:44:59 CDT Kalpesh goins MD [facility] CPT-38239 Level 3 Est. Patient 06:06:23 CDT Edilberto tiwari [facility] CPT-06996 Level 3 Est. Patient 15:23:54 CDT Abdirahman Rios MD [facility] CPT-63291 Level 3 Est. Patient 15:43:49 CDT Abdirahman Rios MD [facility] CPT-94105 Level 3 Est. Patient 12:46:47 NURSE CONSULTANT Abdirahman Rios MD [facility] CPT-72523 Level 3 Est. Patient 08:13:35 NURSE CONSULTANT Abdirahman Rios MD [facility] CPT-64324 Level 2 Est. Patient 09:36:42 NURSE CONSULTANT Abdirahman Rios MD [facility] CPT-77049 Level 3 Est. Patient 10:56:43 CDT Abdirahman Rios MD [facility] CPT-69057 Level 3 Est. Patient 18:24:52 CDT Abdirahman Rios MD [facility] CPT-48275 Level 3 Est. Patient 13:27:22 CDT Abdirahman Rios MD [facility] Procedures Code Procedure Name Date Entry Date Standard Desc ription CPT-24505 Postop F/U Visit 15:02:46 CDT CPT-71921 Postop F/U Visit 11:29:00 NURSE CONSULTANT CPT-J0696 Rocephin 1000 mg (Ceftriaxone) 17:22:33 NURSE CONSULTANT CPT-23230 Postop F/U Visit 18:41:07 NURSE CONSULTANT CPT-86959 Postop F/U Visit 08:19:08 NURSE CONSULTANT CPT-45688 Immunization Single Admin 16:41:53 CDT 2013 CPT-47604 Fluzone Quadrivalent Intramuscular Suspe nsion 0.5 ML 16:41:53 CDT CPT-OV Office Visit 16:39:18 CDT CPT-OV Office Visit 16:16:36 CDT CPT-OV Office Visit 15:34:48 CDT CPT-98558 Postop F/U Visit 14:50:12 CDT CPT-62557 Postop F/U Visit 14:41:10 CDT CPT-26185 Venipuncture Draw Fee 11:38:04 NURSE CONSULTANT CPT-20269 Postop F/U Visit 19:02:59 NURSE CONSULTANT CPT-79597 Postop F/U Visit 12:04:54 NURSE CONSULTANT CPT-54725 Administration single or combination vac cine inc oral 15:56:43 CDT CPT-33734 Influenza split virus > age 3 15:56:43 CDT CPT-11929 Hand comp min 3V 14:25:19 CDT CPT-23843 Postop F/U Visit 21:40:51 CDT CPT-55850 Postop F/U Visit 10:58:43 CDT CPT-20560 Administration single or combination vac cine inc oral 12:33:54 NURSE CONSULTANT CPT-63432 Influenza Preservative Free split virus >age 3 12:33:54 NURSE CONSULTANT CPT-47213 Administration single or combination vac cine inc oral 09:30:51 CDT CPT-03926 Influenza split virus > age 3 09:30:51 CDT CPT-64527 Postop F/U Visit 15:14:53 CDT CPT-33638 Postop F/U Visit 13:50:14 CDT CPT-61109 Postop F/U Visit 13:34:52 CDT CPT-OV Office Visit 16:55:03 CDT CPT-72631 [place] of cervix w bx ECC 13:32:50 CDT 10/19 CPT-J1885 Toradol 60 mg (Ketorolac) 15:31:59 CDT 2011 CPT-J1885 Toradol 60 mg (Ketorolac) 15:23:54 CDT 2011 CPT-98861 Visit 11:34:37 NURSE CONSULTANT CPT-62871 Visit 10:52:39 NURSE CONSULTANT CPT-82477 Visit 10:12:02 NURSE CONSULTANT CPT-49453 Visit 11:22:43 NURSE CONSULTANT CPT-14971 Visit 11:24:12 NURSE CONSULTANT CPT-50555 Visit 10:47:05 NURSE CONSULTANT CPT-OV Office Visit 10:26:16 NURSE CONSULTANT CPT-OV Office Visit 15:34:31 NURSE CONSULTANT CPT-85766 Visit 10:42:08 NURSE CONSULTANT CPT-75005 Visit 10:52:45 NURSE CONSULTANT CPT-000 Give Appropriate Flu Vaccine 16:56:41 CDT 2 CPT-09437 Administration single or combination vac cine inc oral 10:33:21 CDT CPT-24063 Influenza split virus > age 3 10:33:21 CDT CPT-61469 Visit 13:23:09 CDT CPT-40578 Visit 18:24:52 CDT CPT-39522 Sono OB comp > 14 weeks 12:07:49 CDT 04/07
--- OUTSIDE RECORDS SUMMARY | 2020-01-18 16:11 | XMS REPORT | Clinical Summary ---
Author Author Avery, Jeri Rashid Organization [facility] Address Unknown Phone Unavailable Allergies, Adverse Reactions, Alerts Allergy Name Reaction Description Start Date Severity Status Pr ovider SULFA Critical Active Jillina Frazel l SENIOR TECHNICAL RECRUITER TORADOL Rash Severe Active Rajni Yokjagjit AP [...] 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IX 622.12 Resolved Good Julain MD Moderate dysplasia of cervix ENCOUNTER FOR [...] SURGERY SKIN&SUBCUT TISSUE NEC V58.77 11/26 Resolved Godo Julian MD Aftercare followi ng surgery of [...] at surgical incision 782.0 Active Hira Moser SENIOR TECHNICAL RECRUITER Disturbance of skin sensation , INCIDENTAL PROBLEM [...] EXT CREA apply tid, prn LIDOCAIN E-PRILOCAINE 35960834613 Active Jillina Frajalenl SENIOR TECHNICAL RECRUITER Active PERCOCET 5-325 MG TAB 1 tab po q 6 hours, prn OXYCODONE-ACETAMINOPHEN 28537778030 Active Jillina Frazell SENIOR TECHNICAL RECRUITER Active FXZXHISQMD-ERAN-[id number] 50-325-40 MG ORAL TABS 1 po TID PRN Headaches [id number] 05766472272 No Longer Active Jillina Karmenl SENIOR TECHNICAL RECRUITER Active GLYDO 2 % EXT GEL apply to painful areas as needed 201 12/10/13 LIDOCAINE HCL 45604283317 No Longer Active Jillina Karmenl SENIOR TECHNICAL RECRUITER Ac tive PERCOCET 10-325 MG ORAL TABS 1 every 4 hous as needed OXYCODONE-ACETAMINOPHEN 89459424193 No Longer Active Jillina Karmenl SENIOR TECHNICAL RECRUITER Active LC-4 LIDOCAINE 4 % EXT CREA apply to painful area every 12 h ours or as needed LIDOCAINE 33289553522 No Longer Active Jillina Fra janee SENIOR TECHNICAL RECRUITER Active CHANTIX STARTING MONTH MARGARITA 0.5 MG X 11 & 1 MG X 42 TAB S 0.5mg daily for 3 days, then 0.5mg BID for 4 days, then 1mg BID VARENICL INE TARTRATE 69965785908 Active Abdirahman Rios MD Active AMOXICILLIN 500 MG CAPS 2 po BID x 10 days AMOX ICILLIN 14609613856 No Longer Active Abdirahman Rios MD Active PROMETHAZINE HCL 25 MG TABS 1 four times a day as needed for nausea/vomiting PROMETHAZINE HCL 59675851838 No Longer Active Abdirahman Rios MD Active LC-4 LIDOCAINE 4 % EXT CREA apply q 6 hours, prn 08/03 LIDOCAINE 38527548820 No Longer Active Kalpesh Dong MD Active PERCOCET 10-325 MG TABS 1 tablet every 8 hours as needed for [place]ton[place] n OXYCODONE-ACETAMINOPHEN 13690200736 No Longer Active Kalpesh Dong MD Active HYDROCODONE-ACETAMINOPHEN 5-325 MG TABS 1 tab by mouth every 6 hours as needed for pain HYDROCODONE-ACETAMINOPHEN 45226639295 No Longer Active Kalpesh Dong MD Active AUGMENTIN 875-125 MG TAB 1 tab by mouth twice daily with food 20 23/05/16 AMOXICILLIN-POT CLAVULANATE 83135493842 No Longer Active Lizeth hi Yokum SENIOR TECHNICAL RECRUITER 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 FLUTICASONE PROPIONATE 24477633604 No Longer Ac tive Rajni Yokum SENIOR TECHNICAL RECRUITER Active PERCOCET 10-325 MG ORAL TABS take 1 tab by mouth q 4hours as needed for pain OXYCODONE-ACETAMINOPHEN 38216266990 No Longer Active Rajni Yokum SENIOR TECHNICAL RECRUITER Active PERCOCET 10-325 MG ORAL TABS one every 6 hours prn pain OXYCODONE-ACETAMINOPHEN 02456621684 No Longer Active Rajni Yokum SENIOR TECHNICAL RECRUITER Active IBUPROFEN 800 MG TABS 1 tab po tid, with food I BUPROFEN 42497813845 Active Jillina Frazell SENIOR TECHNICAL RECRUITER Active DICLOFENAC SODIUM 50 MG TBEC 1 tablet by mouth four times da tom PRN Pain DICLOFENAC SODIUM 17812081386 No Longer Active Rajni Yokum SENIOR TECHNICAL RECRUITER Active VIIBRYD 10 & 20 & 40 MG KIT 1 po qd as directed 07/24 VILAZODONE HCL 97890963883 No Longer Active Rajni Yokum SENIOR TECHNICAL RECRUITER Active ONDANSETRON 4 MG TBDP 1 q4h PRN nausea ONDANSET KELBY 57005013981 No Longer Active Rajni Yoyanaum SENIOR TECHNICAL RECRUITER Active PERCOCET 10-325 MG TABS 1 tablet every 8 hours as needed for antonia n OXYCODONE-ACETAMINOPHEN 14172764479 No Longer Active Rajni cox SENIOR TECHNICAL RECRUITER Active HYDROCODONE-ACETAMINOPHEN 5-325 MG TABS 1 po TID PRN Pain 9 HYDROCODONE-ACETAMINOPHEN 39794362938 No Longer Active Abdirahman Rios MD Active GOMHARRVHM-JYQ-[id number] 50-325-40 MG ORAL CAPS 1-2 po TID [place] N Headache SOVNQELPOB-FOQFSHO-[id number] 43747167752 No Longer Act krishna Kalpesh Dong MD Active ALPRAZOLAM 0.5 MG TABS 1 po BID PRN Anxiety ALP RAZOLAM 69984980855 No Longer Active Kalpesh Dong MD Active TRAZODONE HCL 100 MG TAB 0.5 to 1 po qHS PRN Insomnia TRAZODONE HCL 36987148506 No Longer Active Kalpesh Dong MD Activ e HYDROCODONE-ACETAMINOPHEN 5-325 MG TABS 1 po q6hr PRN Pain 04/09 HYDROCODONE-ACETAMINOPHEN 55061689460 No Longer Active Kalpesh Dong MD Active CYMBALTA 30 MG CPEP 1 cap by mouth daily DULOXE CLEO HCL 86713514428 No Longer Active Abdirahman Rios MD Active IBUPROFEN 600 MG ORAL TABS 1 by mouth twice a day 2014 IBUPROFEN 85871978256 No Longer Active Abdirahman Rios MD Activ e PERCOCET 5-325 MG TAB 1 tab po q 6 hours, prn severe pain 1 OXYCODONE-ACETAMINOPHEN 43147292747 No Longer Active Abdirahman Rios MD Active SPRINTEC 28 0.25-35 MG-MCG TABS 1 pill by mouth daily for bi rth control NORGESTIMATE-ETH ESTRADIOL 43891279125 No Longer Acti ve Matthewllina Joyzell SENIOR TECHNICAL RECRUITER Active CYCLOBENZAPRINE HCL 10 MG TABS 1 tablet by mouth three times daily as needed for muscle spasm/pain CYCLOBENZAPRINE HCL 90604408106 No Longer Active Jillina Frazell SENIOR TECHNICAL RECRUITER Active HYDROCODONE-ACETAMINOPHEN 5-325 MG TABS 1 po q6hr PRN Pain 03/09 HYDROCODONE-ACETAMINOPHEN 22321273632 No Longer Active Matthewllina Joyzel l SENIOR TECHNICAL RECRUITER Active AUGMENTIN 500-125 MG ORAL TABS 1 by mouth twice a day AMOXICILLIN-POT CLAVULANATE 11952812399 No Longer Active Jillina Frazell SENIOR TECHNICAL RECRUITER Active DICLOFENAC SODIUM 50 MG TBEC 1 tablet by mouth four times da tom PRN Pain DICLOFENAC SODIUM 76718733668 No Longer Active Jillin a Karmenl SENIOR TECHNICAL RECRUITER Active PROMETHAZINE HCL 25 MG TABS 1 four times a day as needed for nausea/vomiting PROMETHAZINE HCL 73360922379 No Longer Active Abdirahman Rios MD Active HYDROCODONE-ACETAMINOPHEN 5-325 MG TABS 1 tab by mouth every 6 hours as needed PRN Pain HYDROCODONE-ACETAMINOPHEN 81843538607 No Longer Active Abdirahman Rios MD Active GEMFIBROZIL 600 MG TABS 1 po BID GEMFIBROZIL 78074428 005 Active Abdirahman Rios MD Active PERCOCET 5-325 MG ORAL TABS 1 every 6 hours as needed OXYCODONE-ACETAMINOPHEN 80876706365 No Longer Active Abdirahman Rios MD Active PERCOCET 5-325 MG TAB 1 tab po q 6 -8 hours, prn for severe pain OXYCODONE-ACETAMINOPHEN 58023553569 No Longer Active Abdirahman Rios MD Active HYDROCODONE-ACETAMINOPHEN 5-325 MG TABS 1 po q6hr PRN pain 06/30 HYDROCODONE-ACETAMINOPHEN 22071398991 No Longer Active Hira roman SENIOR TECHNICAL RECRUITER Active GLUCOPHAGE 500 MG ORAL TABS one by mouth 3 times a day METFORMIN HCL 39529149971 No Longer Active Hira Moser SENIOR TECHNICAL RECRUITER Ac tive PERCOCET 10-325 MG TABS 1 tab by mouth every 6 hours , use sparingly for severe pain OXYCODONE-ACETAMINOPHEN 59437570112 No Longer A ctive Abdirahman Rios MD Active EMLA 2.5-2.5 % EXT CREA apply to skin lesion q 6 hours, prn 2014 LIDOCAINE-PRILOCAINE 92934746565 No Longer Active Abdirahman Rios MD Active PERCOCET 10-325 MG ORAL TABS 1 every 4 hours as needed OXYCODONE-ACETAMINOPHEN 40256917704 No Longer Active Abdirahman Rios MD Active AUGMENTIN 875-125 MG TAB 1 tab by mouth twice daily with food 20 21/10/13 AMOXICILLIN-POT CLAVULANATE 18135812761 No Longer Active Ursula Moser APRN Active PROAIR HFA 108 (90 BASE) MCG/ACT AERS 2 puff q 4-6 hrs PRN 01/24 ALBUTEROL SULFATE 68344495305 No Longer Active Kalpesh Dong MD Active PREDNISONE 20 MG TAB 2 tabs daily for 3 days, 1 t ab daily for 3 days, 1/2 tab daily for 2 days PREDNISONE 60979095934 No Longer Active Abdirahman Rios MD Active KEFLEX 500 MG CAP 1 po qid CEPHALEXIN 678719872 20 No Longer Active Kalpesh Dong MD Active PERCOCET 5-325 MG TAB 1 every 6 hours as needed OXYCODONE-ACETAMINOPHEN 60291649776 No Longer Active Shola MCGILL Active LC-5 LIDOCAINE 5 % CREA apply 1 time daily to affected area 2013 LIDOCAINE (ANORECTAL) 10398415180 No Longer Active Jillina F razell SENIOR TECHNICAL RECRUITER Active HYDROCODONE-ACETAMINOPHEN 10-325 MG TABS 1 by mouth ev chaka 8 hours as needed for pain HYDROCODONE-ACETAMINOPHEN 01091871004 No Longer Active Jillina Frazell SENIOR TECHNICAL RECRUITER Active LORATADINE 10 MG TABS 1 tablet by mouth daily L ORATADINE 30641958918 No Longer Active Jillina Frazell SENIOR TECHNICAL RECRUITER Active DIFLUCAN 150 MG TAB 1 qODay x 2 doses FLUCONAZO LE 22123503393 No Longer Active Jillina Frazell SENIOR TECHNICAL RECRUITER Active CYCLOBENZAPRINE HCL 10 MG TABS 1/2 - 1 tab PO tid PRN back p ain, muscle spasm CYCLOBENZAPRINE HCL 13214989020 No Longer Active Karen herson Frazell SENIOR TECHNICAL RECRUITER Active AUGMENTIN 875-125 MG TAB 1 tab by mouth twice daily with food 20 22/05/07 AMOXICILLIN-POT CLAVULANATE 26415563680 No Longer Active Loida Rios MD Active MOBIC 15 MG TABS 1 tab daily MELOXICAM 236333973 14 No Longer Active Abdirahman Rios MD Active PERCOCET 7.5-325 MG TABS 1 PO tid PRN pain OXYCODONE-ACETAMINOPHEN 12219779247 No Longer Active Abdirahman Rios MD Active LIDODERM 5 % PTCH One patch to painful area [place]. On for 12 hrs, off for 12 hrs. LIDOCAINE 23832548136 No Longer Active Abdirahman Rios MD Active PERCOCET 7.5-325 MG TABS 1 PO q 8 hrs PRN pain OXYCODONE-ACETAMINOPHEN 24406032138 No Longer Active Shola MCGILL Active HYDROCODONE-ACETAMINOPHEN 7.5-325 MG TABS 1 by mouth e very 6 hours as needed for pain HYDROCODONE-ACETAMINOPHEN 53716491001 No Longer Active Good Julian MD Active CLINDAMYCIN HCL 300 MG CAPS 1 po QID x 7 days CLINDAMYCIN HCL 28891972106 No Longer Active Abdirahman Rios MD Activ e BACTRIM DS 800-160 MG TABS 1 po BID x 7 days 5 SULFAMETHOXAZOLE-TRIMETHOPRIM 68760956726 No Longer Active Abdirahman Rios MD Active ENDOCET 10-325 MG TABS 1 q 6 hr prn OXYCODONE-ACETAMINOPHEN 87687578097 No Longer Active Abdirahman Rios MD Active IBUPROFEN 800 MG TABS 1 tid prn IBUPROFEN 209242 62072 No Longer Active Abdirahman Rios MD Active BACTRIM DS 800-160 MG TABS by mouth twice a day 11/05 SULFAMETHOXAZOLE-TRIMETHOPRIM 99976609707 No Longer Active Good Julian MD Active HYDROCODONE-ACETAMINOPHEN 7.5-325 MG TABS 1 four times a day as needed for pain HYDROCODONE-ACETAMINOPHEN 64800190006 No Longer Activ e Good Julian MD Active KEFLEX 500 MG CAP 1 tab po tid CEPHALEXIN 475429 02269 No Longer Active Hira Moser APRN Active IBUPROFEN 800 MG TAB 1 pill three times daily as needed for pain IBUPROFEN 60515309829 No Longer Active Kalpesh Dong MD Active PROMETHAZINE-CODEINE 6.25-10 MG/5ML SYRP 1 tsp every 6 hrs prn c ough PROMETHAZINE-CODEINE 20083581630 No Longer Active Kalpesh Carr Active HYDROCODONE-ACETAMINOPHEN 5-325 MG TABS 1 tab by mouth every 6 hours as needed HYDROCODONE-ACETAMINOPHEN 73843302772 No Longer Activ e Shola MCGILL Active CEPHALEXIN 500 MG CAPS 1 PO bid x 7 days CEPHAL EXIN 81630746309 No Longer Active Shola MCGILL Active BACTRIM DS 800-160 MG TAB 1 tab by mouth twice daily 2 TRIMETHOPRIM-SULFAMETHOXAZOLE 18531953584 No Longer Active Kalpesh Dong MD Active HYDROCODONE-ACETAMINOPHEN 5-325 MG TABS 1 PO tid PRN pain 5 HYDROCODONE-ACETAMINOPHEN 73831083916 No Longer Active Abhinav Galvan MD Active IMPLANON 68 MG IMPL IMPLANTED IN LEFT ARM ETONO GESTREL 28460522890 No Longer Active Hira Moser APRN Active AMOXICILLIN 500 MG TABS 2 tabs PO bid x 10 d AM OXICILLIN 92769223268 No Longer Active Kalpesh Dong MD Active LEVAQUIN 500 MG TABS 1 PO q day x 7 days LEVOFL OXACIN 67083773514 No Longer Active Shola MCGILL Active AMITRIPTYLINE HCL 25 MG TAB 1 tab by mouth daily 60 minutes before bedtime AMITRIPTYLINE HCL 09119391390 No Longer Active Shola MCGILL Active LORTAB 5 5-500 MG TABS 1/2 to 1 tablet by mouth go ry 6 hours as needed for pain HYDROCODONE-ACETAMINOPHEN 08463405601 No Longer Active Shola MCGILL Active CEPHALEXIN 500 MG TABS Take one by mouth four times daily, morning, noon, early evening and bedtime. CEPHALEXIN 08032575412 No Long er Active Hira Moser APRN Active TYLENOL/CODEINE #3 300-30 MG TAB 1-2 po q6hr PRN Pain ACETAMINOPHEN-CODEINE 30878591631 No Longer Active Edilberto Marino DO Active PRISTIQ 50 MG [id number] 1 po qd DESVENLAFAXI NE SUCCINATE 24898855576 No Longer Active Edilberto Marino DO Active PENICILLIN V POTASSIUM 500 MG TAB 1 four times a day 2 PENICILLIN V POTASSIUM 13711114099 No Longer Active Edilberto Marino DO Active DOXYCYCLINE HYCLATE 100 MG CAPS Take one (1) tablet by mouth twice a day DOXYCYCLINE HYCLATE 07487292063 No Longer Active Ronnie Galvan MD Active HYDROCODONE-ACETAMINOPHEN 5-325 MG TABS 1 po q 6hr PRN Pain 2011 HYDROCODONE-ACETAMINOPHEN 76349838632 No Longer Active Patri joan Perez RN Active BACTRIM DS 800-160 MG TAB 1 tab by mouth twice daily 2 TRIMETHOPRIM-SULFAMETHOXAZOLE 55656458212 No Longer Active Kalpesh Dong MD Active LORTAB 5 5-500 MG TABS 1/2 to 1 tablet by mouth go ry 4 hours as needed for pain HYDROCODONE-ACETAMINOPHEN 64225162647 No Longer Active Kalpesh Dong MD Active GENERESS FE 0.8-25 MG-MCG CHEW Take one by mouth daily NORETHIN-ETH ESTRADIOL-FE 33185732354 No Longer Active Kalpesh Dong MD Active HYDROCODONE-ACETAMINOPHEN 7.5-500 MG TABS 1-2 every 4 hours as needed HYDROCODONE-ACETAMINOPHEN 14589998901 No Longer Activ e Kalpesh Dong MD Active FERROUS SULFATE 325 (65 FE) MG TABS 1 tablet by mouth twice yung y FERROUS SULFATE 14996604103 No Longer Active Kalpesh Dong MD Active IBUPROFEN 600 MG TAB 1 po q6-8hr PRN IBUPROFEN 44851960179 No Longer Active Kalpesh Dong MD Active SPIRONOLACTONE 25 MG TAB 1 tablet by mouth daily 01/22 SPIRONOLACTONE 31210393299 No Longer Active Kalpesh Dong MD Acti ve HYDROCODONE-ACETAMINOPHEN 7.5-325 MG TABS 1 po QID PRN Pain 2011 HYDROCODONE-ACETAMINOPHEN 16280584837 No Longer Active Kalpesh Dong MD Active CLINDAMYCIN HCL 300 MG CAPS 1 po q6hr x 7 days CLINDAMYCIN HCL 91582123804 No Longer Active Edilberto Marino DO Active PREDNISONE 20 MG TAB 2 tabs daily for 4 days, 1 t ab daily for 4 days, 1/2 tab daily for 4 days PREDNISONE 49716578985 No Longer Active Edilberto Marino DO Active PERCOCET 5-325 MG TABS 1 tablet by mouth every 6 hours as ne eded for pain OXYCODONE-ACETAMINOPHEN 65190038019 No Longer Active Abdirahman Rios MD Active VITAMINS TABS Take one by mouth daily MV & MIN W/FE-FA TABS 49430318952 No Longer Active Abdirahman Rios MD Active LUIS 3-0.02 MG TABS 1 tablet by mouth daily as directed DROSPIRENONE-ETHINYL ESTRADIOL 42680442531 No Longer Active Abdirahman Rios MD Active LORATADINE 10 MG TABS 1 tablet by mouth daily L ORATADINE 57065772313 No Longer Active Kalpesh Dong MD Active HYDROCODONE-ACETAMINOPHEN 5-325 MG TABS 1 po q 6hr PRN Pain 2010 HYDROCODONE-ACETAMINOPHEN 47043518745 No Longer Active Edilberto Marino DO Active BACTRIM DS 800-160 MG TAB 1 tab by mouth twice daily 2 TRIMETHOPRIM-SULFAMETHOXAZOLE 42935447682 No Longer Active Abdirahman Rios MD Active 28-0.8 MG TABS Take one by mouth daily 09/20 VIT-FE FUMARATE-FA 00902424926 No Longer Active Abdirahman Rios MD Active CIPRO 500 MG TAB 1 tablet by mouth twice daily CIPROFLOXACIN HCL 40774716925 No Longer Active Abdirahman Rios MD Active BENADRYL 25 MG CAP 1 po q8hr PRN Congestion DIPHENHYDRAMINE HCL 11396157668 No Longer Active Abdirahman Rios MD Active ZOLOFT 50 MG TAB 1 po qd SERTRALINE HCL 921225 87447 No Longer Active Abdirahman Rios MD Active AMOXICILLIN 875 MG TABS 1 tab by mouth twice daily 201 08/09/13 AMOXICILLIN 94395621553 No Longer Active Abdirahman Rios MD Activ e AMOXICILLIN 875 MG TABS 1 tab by mouth twice daily 201 07/19/27 AMOXICILLIN 92276916112 No Longer Active Abdirahman Rios MD Activ e BACTRIM DS 800-160 MG TAB 2 tab by mouth twice daily 2 TRIMETHOPRIM-SULFAMETHOXAZOLE 73234059579 No Longer Active Abdirahman Rios MD Active KEFLEX 500 MG CAP 1 po tid x 10 days CEPHALEXIN 04087753317 No Longer Active Abdirahman Rios MD Active AMOXICILLIN 875 MG TABS 1 tab by mouth twice daily 201 07/18/07 AMOXICILLIN 77040509708 No Longer Active Abdirahman Rios MD Activ e BACTRIM DS 800-160 MG TAB 2 tab by mouth twice daily 2 BACTRIM DS 800-160 MG TAB 150514 TRIMETHOPRIM-SULFAMETHOXAZOLE Inactive ZOLOFT 50 MG TAB 1 po qd ZOLOFT 50 MG TAB 3129 41 SERTRALINE HCL Inactive BENADRYL 25 MG CAP 1 po q8hr PRN Congestion BENADRYL 25 MG CAP 7763703 DIPHENHYDRAMINE HCL Inactive 28-0.8 MG TABS Take one by mouth daily 09/20 28-0.8 MG TABS VIT-FE FUMARATE-FA Inactive HYDROCODONE-ACETAMINOPHEN 5-325 MG TABS 1 po q 6hr PRN Pain 2010 HYDROCODONE-ACETAMINOPHEN 5-325 MG TABS 113934 HYDROCODONE-ACETAMINOPHEN Inactive LORATADINE 10 MG TABS 1 tablet by mouth daily LORATADINE 10 MG TABS 324486 LORATADINE Inactive LUIS 3-0.02 MG TABS 1 tablet by mouth daily as directed LUIS 3-0.02 MG TABS 668218 DROSPIRENONE-ETHINYL ESTRADIOL Inactive VITAMINS TABS Take one by mouth daily VITAMINS TABS MV & MIN W/FE-FA TABS Inactive PERCOCET 5-325 MG TABS 1 tablet by mouth every 6 hours as ne eded for pain PERCOCET 5-325 MG TABS 0468141 OXYCODONE-ACETAMIN OPHEN Inactive PREDNISONE 20 MG TAB 2 tabs daily for 4 days, 1 t ab daily for 4 days, 1/2 tab daily for 4 days PREDNISONE 20 MG TAB 179070 PREDNISON E Inactive CLINDAMYCIN HCL 300 MG CAPS 1 po q6hr x 7 days CLINDAMYCIN HCL 300 MG CAPS 353191 CLINDAMYCIN HCL Inactive HYDROCODONE-ACETAMINOPHEN 7.5-325 MG TABS 1 po QID PRN Pain 2011 HYDROCODONE-ACETAMINOPHEN 7.5-325 MG TABS 480804 HYDROCODONE-ACETAMINOPHEN Inactive SPIRONOLACTONE 25 MG TAB 1 tablet by mouth daily 01/22 SPIRONOLACTONE 25 MG TAB 010199 SPIRONOLACTONE Inactive IBUPROFEN 600 MG TAB 1 po q6-8hr PRN IBUPROFEN 600 MG TAB 586418 IBUPROFEN Inactive FERROUS SULFATE 325 (65 FE) MG TABS 1 tablet by mouth twice yung y FERROUS SULFATE 325 (65 FE) MG TABS 429787 FERROUS SULF ATE Inactive HYDROCODONE-ACETAMINOPHEN 7.5-500 MG TABS 1-2 every 4 hours as needed HYDROCODONE-ACETAMINOPHEN 7.5-500 MG TABS HYDROCODONE-ACETAMINOPHEN Inactive GENERESS FE 0.8-25 MG-MCG CHEW Take one by mouth daily GENERESS FE 0.8-25 MG-MCG CHEW 8122092 NORETHIN-ETH ESTRADIOL-FE Inactive LORTAB 5 5-500 MG TABS 1/2 to 1 tablet by mouth go ry 4 hours as needed for pain LORTAB 5 5-500 MG TABS HYDROCODONE-A CETAMINOPHEN Inactive BACTRIM DS 800-160 MG TAB 1 tab by mouth twice daily 2 BACTRIM DS 800-160 MG TAB 069446 TRIMETHOPRIM-SULFAMETHOXAZOLE Inac tive HYDROCODONE-ACETAMINOPHEN 5-325 MG TABS 1 po q 6hr PRN Pain 2011 HYDROCODONE-ACETAMINOPHEN 5-325 MG TABS 369369 HYDROCODONE-ACETAMINOPHEN Inactive DOXYCYCLINE HYCLATE 100 MG CAPS Take one (1) tablet by mouth twice a day DOXYCYCLINE HYCLATE 100 MG CAPS 7302302 DOXYCYCLINE HYCLATE Inactive PENICILLIN V POTASSIUM 500 MG TAB 1 four times a day 2 PENICILLIN V POTASSIUM 500 MG TAB 262822 PENICILLIN V POTASSIUM [place] ctive PRISTIQ 50 MG [id number] 1 po qd PRISTIQ 50 MG [id number] DESVENLAFAXINE SUCCINATE Inactive TYLENOL/CODEINE #3 300-30 MG TAB 1-2 po q6hr PRN Pain TYLENOL/CODEINE #3 300-30 MG TAB 503576 ACETAMINOPHEN-CODEINE Inact krishna CEPHALEXIN 500 MG TABS Take one by mouth four times daily, morning, noon, early evening and bedtime. CEPHALEXIN 500 MG TABS 089194 CEPHALEXIN Inactive LORTAB 5 5-500 MG TABS 1/2 to 1 tablet by mouth go ry 6 hours as needed for pain LORTAB 5 5-500 MG TABS HYDROCODONE-A CETAMINOPHEN Inactive AMITRIPTYLINE HCL 25 MG TAB 1 tab by mouth daily 60 minutes before bedtime AMITRIPTYLINE HCL 25 MG TAB 704087 AMITRIPTYLINE HCL Inactive AMOXICILLIN 500 MG TABS 2 tabs PO bid x 10 d 7 AMOXICILLIN 500 MG TABS 730298 AMOXICILLIN Inactive IMPLANON 68 MG IMPL IMPLANTED IN LEFT ARM IMPLANON 68 MG IMPL ETONOGESTREL Inactive HYDROCODONE-ACETAMINOPHEN 5-325 MG TABS 1 PO tid PRN pain 5 HYDROCODONE-ACETAMINOPHEN 5-325 MG TABS 204381 HYDROCODONE-ACETAMIN OPHEN Inactive BACTRIM DS 800-160 MG TAB 1 tab by mouth twice daily 2 BACTRIM DS 800-160 MG TAB [id number] TRIMETHOPRIM-SULFAMETHOXAZOLE Inac tive CEPHALEXIN 500 MG CAPS 1 PO bid x 7 days CEPHALEXIN 500 MG CAPS 773547 CEPHALEXIN Inactive HYDROCODONE-ACETAMINOPHEN 5-325 MG TABS 1 tab by mouth every 6 hours as needed HYDROCODONE-ACETAMINOPHEN 5-325 MG TABS 747820 HYDROCODONE-ACETAMINOPHEN Inactive PROMETHAZINE-CODEINE 6.25-10 MG/5ML SYRP 1 tsp every 6 hrs prn c ough PROMETHAZINE-CODEINE 6.25-10 MG/5ML SYRP 034875 PROMETH AZINE-CODEINE Inactive IBUPROFEN 800 MG TAB 1 pill three times daily as needed for pain IBUPROFEN 800 MG TAB 113364 IBUPROFEN Inactive KEFLEX 500 MG CAP 1 tab po tid KEFLEX 500 MG CAP 940038 CEPHALEXIN Inactive HYDROCODONE-ACETAMINOPHEN 7.5-325 MG TABS 1 four times a day as needed for pain HYDROCODONE-ACETAMINOPHEN 7.5-325 MG TABS 947306 HYDROCODONE-ACETAMINOPHEN Inactive BACTRIM DS 800-160 MG TABS by mouth twice a day 11/05 BACTRIM DS 800-160 MG TABS 19820910 SULFAMETHOXAZOLE-TRIMETHOPRIM Inactive IBUPROFEN 800 MG TABS 1 tid prn IBUPROFEN 800 MG TABS 593084 IBUPROFEN Inactive ENDOCET 10-325 MG TABS 1 q 6 hr prn ENDOC ET 10-325 MG TABS 6910414 OXYCODONE-ACETAMINOPHEN Inactive HYDROCODONE-ACETAMINOPHEN 7.5-325 MG TABS 1 by mouth e very 6 hours as needed for pain HYDROCODONE-ACETAMINOPHEN 7.5-325 MG TABS 257413 HYDROCODONE-ACETAMINOPHEN Inactive PERCOCET 7.5-325 MG TABS 1 PO q 8 hrs PRN pain PERCOCET 7.5-325 MG TABS 5458827 OXYCODONE-ACETAMINOPHEN Inactive LIDODERM 5 % PTCH One patch to painful area [place]. On for 12 hrs, off for 12 hrs. LIDODERM 5 % [facility] 0824574 LIDOCAINE Inactiv e PERCOCET 7.5-325 MG TABS 1 PO tid PRN pain PERCOCET 7.5- 325 MG TABS 9549621 OXYCODONE-ACETAMINOPHEN Inactive MOBIC 15 MG TABS 1 tab daily MOBIC 15 MG TABS 15 2695 MELOXICAM Inactive CYCLOBENZAPRINE HCL 10 MG TABS 1/2 - 1 tab PO tid PRN back p ain, muscle spasm CYCLOBENZAPRINE HCL 10 MG TABS 998942 CYCLOBENZA JOSEPH HCL Inactive LORATADINE 10 MG TABS 1 tablet by mouth daily LORATADINE 10 MG TABS 802188 LORATADINE Inactive HYDROCODONE-ACETAMINOPHEN 10-325 MG TABS 1 by mouth ev chaka 8 hours as needed for pain HYDROCODONE-ACETAMINOPHEN 10-325 MG TABS 406924 HYDROCODONE-ACETAMINOPHEN Inactive LC-5 LIDOCAINE 5 % CREA apply 1 time daily to affected area 2013 LC-5 LIDOCAINE 5 % CREA [id number] LIDOCAINE (ANORECTAL) In active PERCOCET 5-325 MG TAB 1 every 6 hours as needed PERCOCET 5-325 MG TAB 4028344 OXYCODONE-ACETAMINOPHEN Inactive KEFLEX 500 MG CAP 1 po qid KEFLEX 500 MG CAP 30 9114 CEPHALEXIN Inactive PROAIR HFA 108 (90 BASE) MCG/ACT AERS 2 puff q 4-6 hrs PRN 01/24 PROAIR HFA 108 (90 BASE) MCG/ACT AERS ALBUTEROL SULFATE Inactive PERCOCET 10-325 MG ORAL TABS 1 every 4 hours as needed PERCOCET 10-325 MG ORAL TABS [id number] OXYCODONE-ACETAMINOPHEN Inactiv e EMLA 2.5-2.5 % EXT CREA apply to skin lesion q 6 hours, prn 2014 EMLA 2.5-2.5 % EXT CREA [id number] LIDOCAINE-PRILOCAINE [place] ctive PERCOCET 10-325 MG TABS 1 tab by mouth every 6 hours , use sparingly for severe pain PERCOCET 10-325 MG TABS [id number] OXYCODONE-ACETAMINOPHEN Inactive GLUCOPHAGE 500 MG ORAL TABS one by mouth 3 times a day GLUCOPHAGE 500 MG ORAL TABS [id number] METFORMIN HCL Inactive HYDROCODONE-ACETAMINOPHEN 5-325 MG TABS 1 po q6hr PRN pain 06/30 HYDROCODONE-ACETAMINOPHEN 5-325 MG TABS [id number] HYDROCOD ONE-ACETAMINOPHEN Inactive PERCOCET 5-325 MG TAB 1 tab po q 6 -8 hours, prn for severe pain PERCOCET 5-325 MG TAB [id number] OXYCODONE-ACETAMINOPHEN In active PERCOCET 5-325 MG ORAL TABS 1 every 6 hours as needed PERCOCET 5-325 MG ORAL TABS [id number] OXYCODONE-ACETAMINOPHEN Inactive DICLOFENAC SODIUM 50 MG TBEC 1 tablet by mouth four times da tom PRN Pain DICLOFENAC SODIUM 50 MG TBEC [id number] DICLOFENAC S ODIUM Inactive AUGMENTIN 500-125 MG ORAL TABS 1 by mouth twice a day AUGMENTIN 500-125 MG ORAL TABS 109815 AMOXICILLIN-POT CLAVULANATE I nactive HYDROCODONE-ACETAMINOPHEN 5-325 MG TABS 1 po q6hr PRN Pain 03/09 HYDROCODONE-ACETAMINOPHEN 5-325 MG TABS [id number] HYDROCOD ONE-ACETAMINOPHEN Inactive CYCLOBENZAPRINE HCL 10 MG TABS 1 tablet by mouth three times daily as needed for muscle spasm/pain CYCLOBENZAPRINE HCL 10 MG TABS [id number] CYCLOBENZAPRINE HCL Inactive SPRINTEC 28 0.25-35 MG-MCG TABS 1 pill by mouth daily for bi rth control SPRINTEC 28 0.25-35 MG-MCG TABS [id number] NORGESTIMATE-ETH ESTRADIOL Inactive PERCOCET 5-325 MG TAB 1 tab po q 6 hours, prn severe pain PERCOCET 5-325 MG TAB [id number] OXYCODONE-ACETAMINOPHEN Inactive IBUPROFEN 600 MG ORAL TABS 1 by mouth twice a day 2014 IBUPROFEN 600 MG ORAL TABS 283757 IBUPROFEN Inactive CYMBALTA 30 MG CPEP 1 cap by mouth daily CYMBALTA 30 MG CPEP 645974 DULOXETINE HCL Inactive HYDROCODONE-ACETAMINOPHEN 5-325 MG TABS 1 po q6hr PRN Pain 04/09 HYDROCODONE-ACETAMINOPHEN 5-325 MG TABS 949329 HYDROCOD ONE-ACETAMINOPHEN Inactive TRAZODONE HCL 100 MG TAB 0.5 to 1 po qHS PRN Insomnia TRAZODONE HCL 100 MG TAB [id number] TRAZODONE HCL Inactive ALPRAZOLAM 0.5 MG TABS 1 po BID PRN Anxiety ALPRAZOLAM 0.5 MG TABS 236621 ALPRAZOLAM Inactive FEAZXISAPB-CPQ-NVYWHBUI 50-325-40 MG ORAL CAPS 1-2 po TID WV N Headache FMEQJSZHJU-WFK-YIBKSEEC 50-325-40 MG ORAL CAPS 2 04345 YUVVHAANUY-CMBMVGM-GQMOUIVH Inactive HYDROCODONE-ACETAMINOPHEN 5-325 MG TABS 1 po TID PRN Pain 9 HYDROCODONE-ACETAMINOPHEN 5-325 MG TABS 065272 HYDROCODONE-ACETAMIN OPHEN Inactive PERCOCET 10-325 MG TABS 1 tablet every 8 hours as needed for antonia n PERCOCET 10-325 MG TABS [id number] OXYCODONE-ACETAMINOPHEN Inactive ONDANSETRON 4 MG TBDP 1 q4h PRN nausea ON DANSETRON 4 MG TBDP 150282 ONDANSETRON Inactive VIIBRYD 10 & 20 & 40 MG KIT 1 po qd as directed 07/24 VIIBRYD 10 & 20 & 40 MG KIT VILAZODONE HCL Inactive DICLOFENAC SODIUM 50 MG TBEC 1 tablet by mouth four times da tom PRN Pain DICLOFENAC SODIUM 50 MG TBEC 446073 DICLOFENAC S ODIUM Inactive PERCOCET 10-325 MG ORAL TABS one every 6 hours prn pain PERCOCET 10-325 MG ORAL TABS 4427459 OXYCODONE-ACETAMINOPHEN Inactiv e PERCOCET 10-325 MG ORAL TABS take 1 tab by mouth q 4hours as needed for pain PERCOCET 10-325 MG ORAL TABS [id number] OXYCODONE-ACETAMINOPHEN Inactive FLONASE ALLERGY RELIEF 50 MCG/ACT NASAL SUSP One spray in each nostril twice a day. FLONASE ALLERGY RELIEF 50 MCG/ACT NASAL S SHELTER 456036 FLUTICASONE PROPIONATE Inactive AUGMENTIN 875-125 MG TAB 1 tab by mouth twice daily with food 20 23/05/16 AUGMENTIN 875-125 MG TAB 026837 AMOXICILLIN-POT [place] Inactive HYDROCODONE-ACETAMINOPHEN 5-325 MG TABS 1 tab by mouth every 6 hours as needed for pain HYDROCODONE-ACETAMINOPHEN 5-325 MG TABS 8 67563 HYDROCODONE-ACETAMINOPHEN Inactive PERCOCET 10-325 MG TABS 1 tablet every 8 hours as needed for antonia n PERCOCET 10-325 MG TABS 5331331 OXYCODONE-ACETAMINOPHEN Inactive LC-4 LIDOCAINE 4 % EXT CREA apply q 6 hours, prn 08/03 LC-4 LIDOCAINE 4 % EXT CREA 1632625 LIDOCAINE Inactive PROMETHAZINE HCL 25 MG TABS 1 four times a day as needed for nausea/vomiting PROMETHAZINE HCL 25 MG TABS 565272 PROMETHAZINE HCL Inactive LC-4 LIDOCAINE 4 % EXT CREA apply to painful area every 12 h ours or as needed LC-4 LIDOCAINE 4 % EXT CREA 0338900 LIDOCAINE Inactive PERCOCET 10-325 MG ORAL TABS 1 every 4 hous as needed PERCOCET 10-325 MG ORAL TABS 4705112 OXYCODONE-ACETAMINOPHEN Inactiv e GLYDO 2 % EXT GEL apply to painful areas as needed 201 12/10/13 GLYDO 2 % EXT GEL 3220069 LIDOCAINE HCL Inactive XWOFLMSXQU-UXCO-BKOLQYHU 50-325-40 MG ORAL TABS 1 po TID PRN Headaches OKJVDEQGGR-GRPX-QDJXTRNT 50-325-40 MG ORAL TABS 239686 MXRALRKCDP-QUBP-BHQTICJL Inactive AMOXICILLIN 875 MG TABS 1 tab by mouth twice daily 201 07/18/07 AMOXICILLIN 875 MG TABS 668414 AMOXICILLIN Inactive KEFLEX 500 MG CAP 1 po tid x 10 days KEFLEX 500 MG CAP 631306 CEPHALEXIN Inactive AMOXICILLIN 875 MG TABS 1 tab by mouth twice daily 201 07/19/27 AMOXICILLIN 875 MG TABS 875848 AMOXICILLIN Inactive AMOXICILLIN 875 MG TABS 1 tab by mouth twice daily 201 08/09/13 AMOXICILLIN 875 MG TABS 960265 AMOXICILLIN Inactive CIPRO 500 MG TAB 1 tablet by mouth twice daily CIPRO 500 MG TAB 149547 CIPROFLOXACIN HCL Inactive BACTRIM DS 800-160 MG TAB 1 tab by mouth twice daily 2 BACTRIM DS 800-160 MG TAB 625209 TRIMETHOPRIM-SULFAMETHOXAZOLE Inac tive LEVAQUIN 500 MG TABS 1 PO q day x 7 days LEVAQUIN 500 MG TABS 011827 LEVOFLOXACIN Inactive CLINDAMYCIN HCL 300 MG CAPS 1 po QID x 7 days CLINDAMYCIN HCL 300 MG CAPS 396082 CLINDAMYCIN HCL Inactive AUGMENTIN 875-125 MG TAB 1 tab by mouth twice daily with food 20 22/05/07 AUGMENTIN 875-125 MG TAB 977639 AMOXICILLIN-POT [place] Inactive DIFLUCAN 150 MG TAB 1 qODay x 2 doses DIFLUCAN 150 MG TAB 269825 FLUCONAZOLE Inactive PREDNISONE 20 MG TAB 2 tabs daily for 3 days, 1 t ab daily for 3 days, 1/2 tab daily for 2 days PREDNISONE 20 MG TAB 632608 PREDNISON E Inactive AUGMENTIN 875-125 MG TAB 1 tab by mouth twice daily with food 20 21/10/13 AUGMENTIN 875-125 MG TAB 655924 AMOXICILLIN-POT [place] Inactive HYDROCODONE-ACETAMINOPHEN 5-325 MG TABS 1 tab by mouth every 6 hours as needed PRN Pain HYDROCODONE-ACETAMINOPHEN 5-325 MG TABS 8 63679 HYDROCODONE-ACETAMINOPHEN Inactive PROMETHAZINE HCL 25 MG TABS 1 four times a day as needed for nausea/vomiting PROMETHAZINE HCL 25 MG TABS 242446 PROMETHAZINE HCL Inactive AMOXICILLIN 500 MG CAPS 2 po BID x 10 days AMOXICILLIN 500 MG CAPS 522283 AMOXICILLIN Inactive Advance Directives Directive Description Start Date PERMISSION TO SHARE Immunizations Vaccine Administration Date Value Standard Alf cription Seasonal influenza vaccine, injectable, containing preservative, for > 3 years old (Afluria, FluLaval, Fluzone, Fluvirin, Fluarix, Agriflu(>= 18 yo)) Fluzone (>3 yrs.) [[id number]] Influenza, seasonal, inject able Seasonal influenza vaccine, injectable, preservative free, for > 3 years old (Afluria, FluLaval, Fluzone, Fluvirin, Fluarix, Agriflu(>= 18 yo)) Fluzone preservative free (>3 yrs.) [[id number]] Influenza, seasonal, injectable, preservative free Seasonal influenza vaccine, injectable, containing preservative, for > 3 years old (Afluria, FluLaval, Fluzone, Fluvirin, Fluarix, Agriflu(>= 18 yo)) Fluzone (>3 yrs.) [[id number]] Influenza, seasonal, inject able Seasonal influenza vaccine, injectable, containing preservative, for > 3 years old (Afluria, FluLaval, Fluzone, Fluvirin, Fluarix, Agriflu(>= 18 yo)) Fluzone (>3 yrs.) [[id number]] Influenza, seasonal, inject able dT (Diphtheria and Tetanus) booster given Histor ical Td(adult) unspecified formulation Vital Signs Date Name Value Unit Range Description blood pressure, diastolic - 8462-4 88 mm[Hg] [...] 11 .6-14.8 platelet count 294 10^3/MM^3 10*3/mm3 060-775 7626/08/27 mean corpuscular hemoglobin, RBC 30.2 pg 27. 0-31.2 mean corpuscular volume, RBC 88 fL 80-97 hematocrit, blood 44.6 % 36.0-46.0 hemoglobin, blood 15.4 g/dL 12.0-16.0 erythrocyte (RBC) count 5.08 10^6/MM^3 10*6/mm3 4.04-5.4 8 Lab Report: CBC W/DIFF - Hematology leukocyte [...] ... - Chemistry sodium, serum 137 mmol/L 652-042 5017/02/24 carbon dioxide, venous blood 26.3 mmol/L 21.0-32 [...] Panel - Chemistry cholesterol, serum 181 mg/dL 040-354 6159/09/01 triglyceride, serum, fasting 341 mg/dL 30-200 HDL cholesterol, serum 22 mg/dL 32-96 LDL cholesterol, serum 91 mg/dL 0-130 Lab Report: UADIP W/MICRO, AUTO - Chemis try RBC, urine, dipstick Negative Negative protein, total urine random Negative mg/dL Negative Lab Report: UADIP W/MICRO, AUTO - Urinal ysis urobilinogen, urine, semiquantitative (dipstick) 0.2 Normal leukocyte esterase, urine, by dipstick Negative Negative nitrite, urine, semiquantitative Negative Neg ative appearance, urine Clear Clear specific gravity, urine 1.020 1.000-1.030 pH, urine, semiquantitative 7.5 5.0-8.5 glucose, urine, semiquantitative Negative Neg ative ketones, urine, by test strip Negative Negati ve bilirubin, urine Negative Negative urine color Yellow Colorless;Lightyellow;St raw;Yellow Office Visit: Pt is having Pelvic pain [...] negative Encounters Code Encounter Date Provider Facility CPT-55485 Level 3 Est. Patient 16:33:24 CDT Kalpesh goins MD [facility] CPT-06510 Level 3 Est. Patient 08:29:37 CDT Hira Alessandra garciaosei [facility] CPT-47272 Level 3 Est. Patient 10:28:25 CDT Hira Alessandra garciaosei [facility] CPT-54367 Level 4 Est. Patient 16:38:26 BROKERAGE COORDINATOR Abdirahman Rios MD [facility] CPT-58171 Level 3 Est. Patient 05:31:41 BROKERAGE COORDINATOR Kalpesh goins MD [facility] CPT-78066 Level 3 Est. Patient 11:22:02 BROKERAGE COORDINATOR Hira Aparicio radhaosei [facility] CPT-59338 Level 3 Est. Patient 21:00:18 BROKERAGE COORDINATOR Rajni Oconnor [facility] CPT-74538 Level 3 Est. Patient 14:15:00 BROKERAGE COORDINATOR Kalpesh goins MD [facility] CPT-89234 Level 2 Est. Patient 19:57:52 BROKERAGE COORDINATOR Rajni daniel[facility] CPT-20252 Level 3 Est. Patient 16:58:40 BROKERAGE COORDINATOR Bj funes MD [facility] CPT-00286 Level 3 Est. Patient 08:51:33 CDT Kalpesh goins MD [facility] CPT-85598 Level 4 Est. Patient 14:14:53 CDT Abdirahman Rios MD [facility] CPT-86366 Level 3 Est. Patient 15:47:40 CDT Kalpesh goins MD [facility] CPT-25047 Level 3 Est. Patient 10:57:26 CDT Abdirahman Rios MD [facility] CPT-26903 Level 3 Est. Patient 14:29:53 CDT Abhinav Galvan MD [facility] CPT-91362 Level 2 Est. Patient 16:33:01 CDT Kalpesh goins MD [facility] CPT-89495 Level 4 Est. Patient 16:44:56 CDT Abdirahman Rios MD [facility] CPT-06128 Level 2 Est. Patient 07:49:32 CDT Kalpesh goins MD [facility] CPT-80802 Level 3 New Patient 15:47:11 BROKERAGE COORDINATOR Bj huber MD [facility] CPT-24228 Level 4 Est. Patient 14:37:38 BROKERAGE COORDINATOR Abdirahman Rios MD [facility] CPT-19472 Level 2 Est. Patient 13:32:17 BROKERAGE COORDINATOR Kalpesh goins MD [facility] CPT-81157 Level 3 Est. Patient 17:32:57 BROKERAGE COORDINATOR Edilberto tiwari [facility] CPT-69324 Level 3 Est. Patient 17:22:33 BROKERAGE COORDINATOR Edilberto tiwari [facility] CPT-39917 Level 2 Est. Patient 16:57:09 BROKERAGE COORDINATOR Kalpesh goins MD [facility]-04863 Level 3 Est. Patient 14:03:08 BROKERAGE COORDINATOR Abdirahman Rios MD [facility] CPT-61489 Level 3 Est. Patient 18:12:34 CDT Shola Wright [facility] CPT-81496 Level 3 Est. Patient 19:34:46 CDT Shola Wright [facility] CPT-26997 Level 3 Est. Patient 14:19:37 CDT Abdirahman Rios MD [facility] CPT-62829 Level 3 Est. Patient 14:11:58 CDT Kalpesh goins MD [facility] CPT-50436 Level 3 Est. Patient 16:50:00 CDT Michelle MERCADO [facility] CPT-82037 Level 3 Est. Patient 17:11:32 BROKERAGE COORDINATOR Brandie bates MD, PhD [facility] CPT-54888 Level 3 Est. Patient 16:31:47 BROKERAGE COORDINATOR Shola Wright [facility] CPT-61098 Level 3 Est. Patient 17:51:10 BROKERAGE COORDINATOR Abhinav Galvan MD [facility] CPT-77722 Level 4 Est. Patient 12:54:56 BROKERAGE COORDINATOR Kalpesh goins MD [facility] CPT-84248 Level 4 Est. Patient 12:53:56 BROKERAGE COORDINATOR Kalpesh goins MD [facility] CPT-61629 Level 3 Est. Patient 17:56:58 CDT Shola Wright [facility] CPT-10525 Level 3 Est. Patient 14:26:20 CDT Janak butcher [facility] CPT-72839 Level 3 Est. Patient 09:38:41 CDT Shola Thao Adriana [facility] CPT-44797 Level 3 Est. Patient 14:45:26 CDT Edilberto tiwari [facility] CPT-78810 Level 3 Est. Patient 10:51:33 CDT Hira muniz [facility] CPT-96337 Level 3 Est. Patient 11:57:55 BROKERAGE COORDINATOR Shola Thao Adriana [facility] CPT-15103 Level 3 Est. Patient 09:53:33 BROKERAGE COORDINATOR Edilberto tiwari [facility] CPT-72092 Level 3 Est. Patient 14:42:54 BROKERAGE COORDINATOR Abhinav Galvan MD [facility] CPT-02401 Level 3 Est. Patient 15:10:02 CDT Janak butcher [facility] CPT-72433 Level 3 Est. Patient 15:20:20 CDT Theo dennis MD [facility] CPT-80592 Level 2 Est. Patient 14:08:57 CDT Kalpesh goins MD [facility] CPT-01285 Level 3 Est. Patient 13:56:19 CDT Abdirahman Rios MD [facility] CPT-34407 Level 3 Est. Patient 13:59:37 CDT Abdirahman Rios MD [facility] CPT-11571 Level 2 Est. Patient 14:44:59 CDT Kalpesh goins MD [facility] CPT-71500 Level 3 Est. Patient 06:06:23 CDT Edilberto tiwari DO [facility] CPT-59336 Level 3 Est. Patient 15:23:54 CDT Abdirahman Rios MD [facility] CPT-25450 Level 3 Est. Patient 15:43:49 CDT Abdirahman Rios MD [facility] CPT-46418 Level 3 Est. Patient 12:46:47 BROKERAGE COORDINATOR Abdirahman Rios MD [facility] CPT-39501 Level 3 Est. Patient 08:13:35 BROKERAGE COORDINATOR Abdirahman Rios MD [facility] CPT-02663 Level 2 Est. Patient 09:36:42 BROKERAGE COORDINATOR Abdirahman Rios MD [facility] CPT-73130 Level 3 Est. Patient 10:56:43 CDT Abdirahman Rios MD [facility] CPT-09370 Level 3 Est. Patient 18:24:52 CDT Abdirahman Rios MD [facility] CPT-77575 Level 3 Est. Patient 13:27:22 CDT Abdirahman Rios MD [facility] Procedures Code Procedure Name Date Entry Date Standard Desc ription CPT-86621 Postop F/U Visit 16:21:51 BROKERAGE COORDINATOR CPT-98371 Postop F/U Visit 17:09:41 BROKERAGE COORDINATOR CPT-23861 Postop F/U Visit 14:08:43 BROKERAGE COORDINATOR CPT-94207 Postop F/U Visit 15:18:16 BROKERAGE COORDINATOR CPT-28048 Postop F/U Visit 15:03:49 BROKERAGE COORDINATOR CPT-52893 Postop F/U Visit 14:45:23 BROKERAGE COORDINATOR CPT-04535 Postop F/U Visit 14:11:03 BROKERAGE COORDINATOR CPT-69043 Postop F/U Visit 18:21:21 BROKERAGE COORDINATOR CPT-51644 Postop F/U Visit 15:57:12 BROKERAGE COORDINATOR CPT-24835 Bladder Instillation 16:58:41 BROKERAGE COORDINATOR 6 CPT-25633 Fluzone Quadrivalent Intramuscular Suspe nsion 0.5 ML 15:20:56 BROKERAGE COORDINATOR CPT-46222 Immunization Single Admin 15:20:56 BROKERAGE COORDINATOR 2014 CPT-83260 Excis pilonidal cyst simple 08:51:34 CDT 22/04/20 CPT-92556 Venipuncture Draw Fee 14:27:29 CDT CPT-87560 Postop F/U Visit 15:27:43 CDT CPT-77107 Postop F/U Visit 14:40:59 CDT CPT-17972 Postop F/U Visit 15:02:46 CDT CPT-40915 Postop F/U Visit 11:29:00 BROKERAGE COORDINATOR CPT-J0696 Rocephin 1000 mg (Ceftriaxone) 17:22:33 BROKERAGE COORDINATOR CPT-95309 Postop F/U Visit 18:41:07 BROKERAGE COORDINATOR CPT-14526 Postop F/U Visit 08:19:08 BROKERAGE COORDINATOR CPT-63764 Immunization Single Admin 16:41:53 CDT 2013 CPT-52694 Fluzone Quadrivalent Intramuscular Suspe nsion 0.5 ML 16:41:53 CDT CPT-OV Office Visit 16:39:18 CDT CPT-OV Office Visit 16:16:36 CDT CPT-OV Office Visit 15:34:48 CDT CPT-79985 Postop F/U Visit 14:50:12 CDT CPT-87367 Postop F/U Visit 14:41:10 CDT CPT-74973 Venipuncture Draw Fee 11:38:04 BROKERAGE COORDINATOR CPT-53417 Postop F/U Visit 19:02:59 BROKERAGE COORDINATOR CPT-02950 Postop F/U Visit 12:04:54 BROKERAGE COORDINATOR CPT-08261 Administration single or combination vac cine inc oral 15:56:43 CDT CPT-53337 Influenza split virus > age 3 15:56:43 CDT CPT-59974 Hand comp min 3V 14:25:19 CDT CPT-16544 Postop F/U Visit 21:40:51 CDT CPT-22345 Postop F/U Visit 10:58:43 CDT CPT-71860 Administration single or combination vac cine inc oral 12:33:54 BROKERAGE COORDINATOR CPT-21463 Influenza Preservative Free split virus >age 3 12:33:54 BROKERAGE COORDINATOR CPT-66951 Administration single or combination vac cine inc oral 09:30:51 CDT CPT-95759 Influenza split virus > age 3 09:30:51 CDT CPT-29454 Postop F/U Visit 15:14:53 CDT CPT-62658 Postop F/U Visit 13:50:14 CDT CPT-14950 Postop F/U Visit 13:34:52 CDT CPT-OV Office Visit 16:55:03 CDT CPT-60524 Jber of cervix w bx ECC 13:32:50 CDT 10/19 CPT-J1885 Toradol 60 mg (Ketorolac) 15:31:59 CDT 2011 CPT-J1885 Toradol 60 mg (Ketorolac) 15:23:54 CDT 2011 CPT-04219 Visit 11:34:37 BROKERAGE COORDINATOR CPT-77689 Visit 10:52:39 BROKERAGE COORDINATOR CPT-83069 Visit 10:12:02 BROKERAGE COORDINATOR CPT-68716 Visit 11:22:43 BROKERAGE COORDINATOR CPT-06572 Visit 11:24:12 BROKERAGE COORDINATOR CPT-36430 Visit 10:47:05 BROKERAGE COORDINATOR CPT-OV Office Visit 10:26:16 BROKERAGE COORDINATOR CPT-OV Office Visit 15:34:31 BROKERAGE COORDINATOR CPT-71694 Visit 10:42:08 BROKERAGE COORDINATOR CPT-81826 Visit 10:52:45 BROKERAGE COORDINATOR CPT-000 Give Appropriate Flu Vaccine 16:56:41 CDT 2 CPT-35356 Administration single or combination vac cine inc oral 10:33:21 CDT CPT-06746 Influenza split virus > age 3 10:33:21 CDT CPT-33081 Visit 13:23:09 CDT CPT-26967 Visit 18:24:52 CDT CPT-93880 Sono OB comp > 14 weeks 12:07:49 CDT 04/07
--- OUTSIDE RECORDS SUMMARY | 2020-01-18 16:12 | XMS REPORT | Clinical Summary ---
[...] care facility Pelvic Pain-Female 625.9 Active Bj colleir MD Unspecified symptom associated with female genital organs AFTERCARE FOLLOW SURGERY SKIN&SUBCUT TISSUE NEC V58.77 08/27 Resolved Abdirahman Rios MD Aftercare following surgery of the skin and subcutaneous tissue, NEC Abscess, perirectal 566 Active Hira roman VEHICLE CHECK IN CLERK Abscess of anal and rectal regions [...] CHRONIC ICD-490 8 Inactive Abdirahman Rios MD [place] ICD-611.71 Inactive Abdirahman Carr ABDOMINAL ABSCESS ICD-682.2 Inactive Abdirahman sanchez MD [...] DRUG MONITORING ICD-V58.83 Jose M Julian MD FAMILY HISTORY OF ASTHMA ICD-V17.5 Inactive Moni Julian MD DEPRESSION ICD-311 Inactive Good sierra MD AMENORRHEA ICD-626.0 Inactive Good sierra MD [...] daily for bi rth control NORGESTIMATE-ETH ESTRADIOL 31197693472 Active Hira Moser APRN Active GLUCOPHAGE 500 MG ORAL TABS one by mouth 3 times a day METFORMIN HCL 65650613358 No Longer Active Hira Moser APRN Ac tive PERCOCET 10-325 MG TABS 1 tab by mouth every 6 hours , use sparingly for severe pain OXYCODONE-ACETAMINOPHEN 33676509439 No Longer A ctive Abdirahman Rios MD Active IBUPROFEN 600 MG ORAL TABS 1 by mouth twice a day IBUPROFEN 46693297732 Active ERNIE Higuera Active TRAZODONE HCL 100 MG TAB 0.5 to 1 po qHS PRN Insomnia TRAZODONE HCL 16949636259 Active Abdirahman Rios MD Active CYMBALTA 30 MG CPEP 1 cap by mouth daily DULOXE CLEO HCL 53889553750 Active Abdirahman Rios MD Active EMLA 2.5-2.5 % EXT CREA apply to skin lesion q 6 hours, prn 2014 LIDOCAINE-PRILOCAINE 26584793184 No Longer Active Abdirahman Rios MD Active HYDROCODONE-ACETAMINOPHEN 5-325 MG TABS 1 po q6hr PRN pain HYDROCODONE-ACETAMINOPHEN 35551500559 Active Abdirahman Rios MD Active PERCOCET 10-325 MG ORAL TABS 1 every 4 hours as needed OXYCODONE-ACETAMINOPHEN 61771544921 No Longer Active Abdirahman Rios MD Active [id number]-[id number] 50-325-40 MG ORAL CAPS 1-2 po TID NH N Headache [id number] 00459074878 Active Abdirahman Rios MD Active AUGMENTIN 875-125 MG TAB 1 tab by mouth twice daily with food 20 21/10/13 AMOXICILLIN-POT CLAVULANATE 90688799215 No Longer Active Ursula Moser APRN Active PROAIR HFA 108 (90 BASE) MCG/ACT AERS 2 puff q 4-6 hrs PRN 01/24 ALBUTEROL SULFATE 85607545007 No Longer Active Kalpesh Dong MD Active ALPRAZOLAM 0.5 MG TABS 1 po BID PRN Anxiety ALPRA ZOLAM 67822968989 Active Abdirahman Rios MD Active CYCLOBENZAPRINE HCL 10 MG TABS 1 tablet by mouth three times daily as needed for muscle spasm/pain CYCLOBENZAPRINE HCL 54748108409 Active Abdirahman Rios MD Active PREDNISONE 20 MG TAB 2 tabs daily for 3 days, 1 t ab daily for 3 days, 1/2 tab daily for 2 days PREDNISONE 94967706537 No Longer Active Abdirahman Rios MD Active KEFLEX 500 MG CAP 1 po qid CEPHALEXIN 923193436 20 No Longer Active Kalpesh Dong MD Active PERCOCET 5-325 MG TAB 1 every 6 hours as needed OXYCODONE-ACETAMINOPHEN 66109921167 No Longer Active Shola MCGILL Active LC-5 LIDOCAINE 5 % CREA apply 1 time daily to affected area 2013 LIDOCAINE (ANORECTAL) 85564604779 No Longer Active Hira muniz APRN Active HYDROCODONE-ACETAMINOPHEN 10-325 MG TABS 1 by mouth ev chaka 8 hours as needed for pain HYDROCODONE-ACETAMINOPHEN 04418675397 No Longer Active Hira Moser APRN Active LORATADINE 10 MG TABS 1 tablet by mouth daily L ORATADINE 14042127721 No Longer Active Jillina Frazell VEHICLE CHECK IN CLERK Active DIFLUCAN 150 MG TAB 1 qODay x 2 doses FLUCONAZO LE 73642655342 No Longer Active Jillina Frazell VEHICLE CHECK IN CLERK Active CYCLOBENZAPRINE HCL 10 MG TABS 1/2 - 1 tab PO tid PRN back p ain, muscle spasm CYCLOBENZAPRINE HCL 52111446905 No Longer Active Karen siri Frazell VEHICLE CHECK IN CLERK Active AUGMENTIN 875-125 MG TAB 1 tab by mouth twice daily with food 20 22/05/07 AMOXICILLIN-POT CLAVULANATE 63643183754 No Longer Active Loida Rios MD Active MOBIC 15 MG TABS 1 tab daily MELOXICAM 528241452 14 No Longer Active Abdirahman Rios MD Active PERCOCET 7.5-325 MG TABS 1 PO tid PRN pain OXYCODONE-ACETAMINOPHEN 79874739194 No Longer Active Abdirahman Rios MD Active LIDODERM 5 % PTCH One patch to painful area [place] N. On for 12 hrs, off for 12 hrs. LIDOCAINE 80821334887 No Longer Active Abdirahman Rios MD Active PERCOCET 7.5-325 MG TABS 1 PO q 8 hrs PRN pain OXYCODONE-ACETAMINOPHEN 81971878196 No Longer Active Shola MCGILL Active HYDROCODONE-ACETAMINOPHEN 7.5-325 MG TABS 1 by mouth e very 6 hours as needed for pain HYDROCODONE-ACETAMINOPHEN 54016738624 No Longer Active Good Julian MD Active CLINDAMYCIN HCL 300 MG CAPS 1 po QID x 7 days CLINDAMYCIN HCL 02230014160 No Longer Active Abdirahman Rios MD Activ e BACTRIM DS 800-160 MG TABS 1 po BID x 7 days 5 SULFAMETHOXAZOLE-TRIMETHOPRIM 75293700524 No Longer Active Abdirahman Rios MD Active ENDOCET 10-325 MG TABS 1 q 6 hr prn OXYCODONE-ACETAMINOPHEN 90216122369 No Longer Active Abdirahman Rios MD Active IBUPROFEN 800 MG TABS 1 tid prn IBUPROFEN 798424 55988 No Longer Active Abdirahman Rios MD Active BACTRIM DS 800-160 MG TABS by mouth twice a day 11/05 SULFAMETHOXAZOLE-TRIMETHOPRIM 04316295915 No Longer Active Good Julian MD Active HYDROCODONE-ACETAMINOPHEN 7.5-325 MG TABS 1 four times a day as needed for pain HYDROCODONE-ACETAMINOPHEN 70515486336 No Longer Activ e Good Julian MD Active KEFLEX 500 MG CAP 1 tab po tid CEPHALEXIN 787725 55230 No Longer Active Hira Moser APRN Active IBUPROFEN 800 MG TAB 1 pill three times daily as needed for pain IBUPROFEN 47875584240 No Longer Active Kalpesh Dong MD Active PROMETHAZINE-CODEINE 6.25-10 MG/5ML SYRP 1 tsp every 6 hrs prn c ough PROMETHAZINE-CODEINE 46597941683 No Longer Active Kalpesh Carr Active HYDROCODONE-ACETAMINOPHEN 5-325 MG TABS 1 tab by mouth every 6 hours as needed HYDROCODONE-ACETAMINOPHEN 42269170919 No Longer Activ e Shola MCGILL Active CEPHALEXIN 500 MG CAPS 1 PO bid x 7 days CEPHAL EXIN 09438778551 No Longer Active Shola MCGILL Active BACTRIM DS 800-160 MG TAB 1 tab by mouth twice daily 2 TRIMETHOPRIM-SULFAMETHOXAZOLE 86364582664 No Longer Active Kalpesh Dong MD Active HYDROCODONE-ACETAMINOPHEN 5-325 MG TABS 1 PO tid PRN pain 5 HYDROCODONE-ACETAMINOPHEN 72237561681 No Longer Active Abhinav Galvan MD Active IMPLANON 68 MG IMPL IMPLANTED IN LEFT ARM ETONO GESTREL 97187834242 No Longer Active Hira Moser APRN Active AMOXICILLIN 500 MG TABS 2 tabs PO bid x 10 d AM OXICILLIN 10000650185 No Longer Active Kalpesh Dong MD Active LEVAQUIN 500 MG TABS 1 PO q day x 7 days LEVOFL OXACIN 81361699988 No Longer Active Shola MCGILL Active AMITRIPTYLINE HCL 25 MG TAB 1 tab by mouth daily 60 minutes before bedtime AMITRIPTYLINE HCL 99924040787 No Longer Active Shola MCGILL Active LORTAB 5 5-500 MG TABS 1/2 to 1 tablet by mouth go ry 6 hours as needed for pain HYDROCODONE-ACETAMINOPHEN 88767234549 No Longer Active Shola MCGILL Active CEPHALEXIN 500 MG TABS Take one by mouth four times daily, morning, noon, early evening and bedtime. CEPHALEXIN 23704459257 No Long er Active Hira Moser APRN Active TYLENOL/CODEINE #3 300-30 MG TAB 1-2 po q6hr PRN Pain ACETAMINOPHEN-CODEINE 16828295511 No Longer Active Edilberto Marino DO Active PRISTIQ 50 MG [id number] 1 po qd DESVENLAFAXI NE SUCCINATE 88948774422 No Longer Active Edilberto Marino DO Active PENICILLIN V POTASSIUM 500 MG TAB 1 four times a day 2 PENICILLIN V POTASSIUM 49070638571 No Longer Active Edilberto Marino DO Active DOXYCYCLINE HYCLATE 100 MG CAPS Take one (1) tablet by mouth twice a day DOXYCYCLINE HYCLATE 80860638535 No Longer Active Ronnie Galvan MD Active HYDROCODONE-ACETAMINOPHEN 5-325 MG TABS 1 po q 6hr PRN Pain 2011 HYDROCODONE-ACETAMINOPHEN 85460218558 No Longer Active Jerson Perez RN Active BACTRIM DS 800-160 MG TAB 1 tab by mouth twice daily 2 TRIMETHOPRIM-SULFAMETHOXAZOLE 49596323746 No Longer Active Kalpesh Dong MD Active LORTAB 5 5-500 MG TABS 1/2 to 1 tablet by mouth go ry 4 hours as needed for pain HYDROCODONE-ACETAMINOPHEN 84899689505 No Longer Active Kalpesh Dong MD Active GENERESS FE 0.8-25 MG-MCG CHEW Take one by mouth daily NORETHIN-ETH ESTRADIOL-FE 18985914693 No Longer Active Kalpesh Dong MD Active HYDROCODONE-ACETAMINOPHEN 7.5-500 MG TABS 1-2 every 4 hours as needed HYDROCODONE-ACETAMINOPHEN 60217024589 No Longer Activ e Kalpesh Dong MD Active FERROUS SULFATE 325 (65 FE) MG TABS 1 tablet by mouth twice yung y FERROUS SULFATE 28505067612 No Longer Active Kalpesh Dong MD Active IBUPROFEN 600 MG TAB 1 po q6-8hr PRN IBUPROFEN 37019095544 No Longer Active Kalpesh Dong MD Active SPIRONOLACTONE 25 MG TAB 1 tablet by mouth daily 01/22 SPIRONOLACTONE 63755171220 No Longer Active Kalpesh Dong MD Acti ve HYDROCODONE-ACETAMINOPHEN 7.5-325 MG TABS 1 po QID PRN Pain 2011 HYDROCODONE-ACETAMINOPHEN 58094490609 No Longer Active Kalpesh Dong MD Active CLINDAMYCIN HCL 300 MG CAPS 1 po q6hr x 7 days CLINDAMYCIN HCL 95822493550 No Longer Active Edilberto Marino DO Active PREDNISONE 20 MG TAB 2 tabs daily for 4 days, 1 t ab daily for 4 days, 1/2 tab daily for 4 days PREDNISONE 22678396622 No Longer Active Edilberto Marino DO Active PERCOCET 5-325 MG TABS 1 tablet by mouth every 6 hours as ne eded for pain OXYCODONE-ACETAMINOPHEN 84519373311 No Longer Active Abdirahman Rios MD Active VITAMINS TABS Take one by mouth daily MV & MIN W/FE-FA TABS 84171720758 No Longer Active Abdirahman Rios MD Active LUIS 3-0.02 MG TABS 1 tablet by mouth daily as directed DROSPIRENONE-ETHINYL ESTRADIOL 42734251839 No Longer Active Abdirahman Rios MD Active LORATADINE 10 MG TABS 1 tablet by mouth daily L ORATADINE 79547733631 No Longer Active Kalpesh Dong MD Active HYDROCODONE-ACETAMINOPHEN 5-325 MG TABS 1 po q 6hr PRN Pain 2010 HYDROCODONE-ACETAMINOPHEN 82250181271 No Longer Active Edilberto Marino DO Active BACTRIM DS 800-160 MG TAB 1 tab by mouth twice daily 2 TRIMETHOPRIM-SULFAMETHOXAZOLE 28051986535 No Longer Active Abdirahman Rios MD Active 28-0.8 MG TABS Take one by mouth daily 09/20 VIT-FE FUMARATE-FA 91804523598 No Longer Active Abdirahman Rios MD Active CIPRO 500 MG TAB 1 tablet by mouth twice daily CIPROFLOXACIN HCL 05688951573 No Longer Active Abdirahman Rios MD Active BENADRYL 25 MG CAP 1 po q8hr PRN Congestion DIPHENHYDRAMINE HCL 55172886489 No Longer Active Abdirahman Rios MD Active ZOLOFT 50 MG TAB 1 po qd SERTRALINE HCL 122380 08302 No Longer Active Abdirahman Rios MD Active AMOXICILLIN 875 MG TABS 1 tab by mouth twice daily 201 08/09/13 AMOXICILLIN 91192822115 No Longer Active Abdirahman Rios MD Activ e AMOXICILLIN 875 MG TABS 1 tab by mouth twice daily 201 07/19/27 AMOXICILLIN 65909356130 No Longer Active Abdirahman Rios MD Activ e BACTRIM DS 800-160 MG TAB 2 tab by mouth twice daily 2 TRIMETHOPRIM-SULFAMETHOXAZOLE 66089876388 No Longer Active Abdirahman Rios MD Active KEFLEX 500 MG CAP 1 po tid x 10 days CEPHALEXIN 75900061945 No Longer Active Abdirahman Rios MD Active AMOXICILLIN 875 MG TABS 1 tab by mouth twice daily 201 07/18/07 AMOXICILLIN 94789560454 No Longer Active Abdirahman Rios MD Activ e BACTRIM DS 800-160 MG TAB 2 tab by mouth twice daily 2 BACTRIM DS 800-160 MG TAB TRIMETHOPRIM-SULFAMETHOXAZOLE Inactive ZOLOFT 50 MG TAB 1 po qd ZOLOFT 50 MG TAB 3129 41 SERTRALINE HCL Inactive BENADRYL 25 MG CAP 1 po q8hr PRN Congestion BENADRYL 25 MG CAP 1420898 DIPHENHYDRAMINE HCL Inactive 28-0.8 MG TABS Take one by mouth daily 09/20 28-0.8 MG TABS VIT-FE FUMARATE-FA Inactive HYDROCODONE-ACETAMINOPHEN 5-325 MG TABS 1 po q 6hr PRN Pain 2010 HYDROCODONE-ACETAMINOPHEN 5-325 MG TABS 759494 HYDROCODONE-ACETAMINOPHEN Inactive LORATADINE 10 MG TABS 1 tablet by mouth daily LORATADINE 10 MG TABS 566989 LORATADINE Inactive LUSI 3-0.02 MG TABS 1 tablet by mouth daily as directed LUIS 3-0.02 MG TABS DROSPIRENONE-ETHINYL ESTRADIOL Inactive VITAMINS TABS Take one by mouth daily VITAMINS TABS MV & MIN W/FE-FA TABS Inactive PERCOCET 5-325 MG TABS 1 tablet by mouth every 6 hours as ne eded for pain PERCOCET 5-325 MG TABS 2671875 OXYCODONE-ACETAMIN OPHEN Inactive PREDNISONE 20 MG TAB 2 tabs daily for 4 days, 1 t ab daily for 4 days, 1/2 tab daily for 4 days PREDNISONE 20 MG TAB 428620 PREDNISON E Inactive CLINDAMYCIN HCL 300 MG CAPS 1 po q6hr x 7 days CLINDAMYCIN HCL 300 MG CAPS 362795 CLINDAMYCIN HCL Inactive HYDROCODONE-ACETAMINOPHEN 7.5-325 MG TABS 1 po QID PRN Pain 2011 HYDROCODONE-ACETAMINOPHEN 7.5-325 MG TABS 170820 HYDROCODONE-ACETAMINOPHEN Inactive SPIRONOLACTONE 25 MG TAB 1 tablet by mouth daily 01/22 SPIRONOLACTONE 25 MG TAB 866190 SPIRONOLACTONE Inactive IBUPROFEN 600 MG TAB 1 po q6-8hr PRN IBUPROFEN 600 MG TAB 288382 IBUPROFEN Inactive FERROUS SULFATE 325 (65 FE) MG TABS 1 tablet by mouth twice yung y FERROUS SULFATE 325 (65 FE) MG TABS 387109 FERROUS SULF ATE Inactive HYDROCODONE-ACETAMINOPHEN 7.5-500 MG TABS 1-2 every 4 hours as needed HYDROCODONE-ACETAMINOPHEN 7.5-500 MG TABS HYDROCODONE-ACETAMINOPHEN Inactive GENERESS FE 0.8-25 MG-MCG CHEW Take one by mouth daily GENERESS FE 0.8-25 MG-MCG CHEW 1562983 NORETHIN-ETH ESTRADIOL-FE Inactive LORTAB 5 5-500 MG [...] PRN Pain 2011 HYDROCODONE-ACETAMINOPHEN 5-325 MG TABS 774561 HYDROCODONE-ACETAMINOPHEN Inactive DOXYCYCLINE HYCLATE 100 MG CAPS Take one (1) tablet by mouth twice a day DOXYCYCLINE HYCLATE 100 MG CAPS 7723625 DOXYCYCLINE HYCLATE Inactive PENICILLIN V POTASSIUM 500 MG TAB 1 four times a day 2 PENICILLIN V POTASSIUM 500 MG TAB 139315 PENICILLIN V POTASSIUM [place] ctive PRISTIQ 50 MG [id number] 1 po qd PRISTIQ 50 MG [id number] DESVENLAFAXINE SUCCINATE Inactive TYLENOL/CODEINE #3 300-30 MG TAB 1-2 po q6hr PRN Pain TYLENOL/CODEINE #3 300-30 MG TAB 157256 ACETAMINOPHEN-CODEINE Inact krishna CEPHALEXIN 500 MG TABS Take one by mouth four times daily, morning, noon, early evening and bedtime. CEPHALEXIN 500 MG TABS 726130 CEPHALEXIN Inactive LORTAB 5 5-500 MG TABS 1/2 to 1 tablet by mouth go ry 6 hours as needed for pain LORTAB 5 5-500 MG TABS HYDROCODONE-A CETAMINOPHEN Inactive AMITRIPTYLINE HCL 25 MG TAB 1 tab by mouth daily 60 minutes before bedtime AMITRIPTYLINE HCL 25 MG TAB 186712 AMITRIPTYLINE HCL Inactive AMOXICILLIN 500 MG TABS 2 tabs PO bid x 10 d 7 AMOXICILLIN 500 MG TABS 061319 AMOXICILLIN Inactive IMPLANON 68 MG IMPL IMPLANTED IN LEFT ARM IMPLANON 68 MG IMPL ETONOGESTREL Inactive HYDROCODONE-ACETAMINOPHEN 5-325 MG TABS 1 PO tid PRN pain 5 HYDROCODONE-ACETAMINOPHEN 5-325 MG TABS 618553 HYDROCODONE-ACETAMIN OPHEN Inactive BACTRIM DS 800-160 MG TAB 1 tab by mouth twice daily 2 BACTRIM DS 800-160 MG TAB TRIMETHOPRIM-SULFAMETHOXAZOLE Inac tive CEPHALEXIN 500 MG CAPS 1 PO bid x 7 days CEPHALEXIN 500 MG CAPS 154711 CEPHALEXIN Inactive HYDROCODONE-ACETAMINOPHEN 5-325 MG TABS 1 tab by mouth every 6 hours as needed HYDROCODONE-ACETAMINOPHEN 5-325 MG TABS 802682 HYDROCODONE-ACETAMINOPHEN Inactive PROMETHAZINE-CODEINE 6.25-10 MG/5ML SYRP 1 tsp every 6 hrs prn c ough PROMETHAZINE-CODEINE 6.25-10 MG/5ML SYRP 365416 PROMETH AZINE-CODEINE Inactive IBUPROFEN 800 MG TAB 1 pill three times daily as needed for pain IBUPROFEN 800 MG TAB 550443 IBUPROFEN Inactive KEFLEX 500 MG CAP 1 tab po tid KEFLEX 500 MG CAP 016313 CEPHALEXIN Inactive HYDROCODONE-ACETAMINOPHEN 7.5-325 MG TABS 1 four times a day as needed for pain HYDROCODONE-ACETAMINOPHEN 7.5-325 MG TABS 574830 HYDROCODONE-ACETAMINOPHEN Inactive BACTRIM DS 800-160 MG TABS by mouth twice a day 11/05 BACTRIM DS 800-160 MG TABS SULFAMETHOXAZOLE-TRIMETHOPRIM Inactive IBUPROFEN 800 MG TABS 1 tid prn IBUPROFEN 800 MG TABS 444291 IBUPROFEN Inactive ENDOCET 10-325 MG TABS 1 q 6 hr prn ENDOC ET 10-325 MG TABS 8644621 OXYCODONE-ACETAMINOPHEN Inactive HYDROCODONE-ACETAMINOPHEN 7.5-325 MG TABS 1 by mouth e very 6 hours as needed for pain HYDROCODONE-ACETAMINOPHEN 7.5-325 MG TABS 226521 HYDROCODONE-ACETAMINOPHEN Inactive PERCOCET 7.5-325 MG TABS 1 PO q 8 hrs PRN pain PERCOCET 7.5-325 MG TABS 8648315 OXYCODONE-ACETAMINOPHEN Inactive LIDODERM 5 % PTCH One patch to painful area [place] N. On for 12 hrs, off for 12 hrs. LIDODERM 5 % PTCH 4665271 LIDOCAINE Inactiv e PERCOCET 7.5-325 MG TABS 1 PO tid PRN pain PERCOCET 7.5- 325 MG TABS 4603963 OXYCODONE-ACETAMINOPHEN Inactive MOBIC 15 MG TABS 1 tab daily MOBIC 15 MG TABS 15 2695 MELOXICAM Inactive CYCLOBENZAPRINE HCL 10 MG TABS 1/2 - 1 tab PO tid PRN back p ain, muscle spasm CYCLOBENZAPRINE HCL 10 MG TABS 332851 CYCLOBENZA JOSEPH HCL Inactive LORATADINE 10 MG TABS 1 tablet by mouth daily LORATADINE 10 MG TABS 467379 LORATADINE Inactive HYDROCODONE-ACETAMINOPHEN 10-325 MG TABS 1 by mouth ev chaka 8 hours as needed for pain HYDROCODONE-ACETAMINOPHEN 10-325 MG TABS 271448 HYDROCODONE-ACETAMINOPHEN Inactive LC-5 LIDOCAINE 5 % CREA apply 1 time daily to affected area 2013 LC-5 LIDOCAINE 5 % CREA LIDOCAINE (ANORECTAL) In active PERCOCET 5-325 MG TAB 1 every 6 hours as needed PERCOCET 5-325 MG TAB 0410702 OXYCODONE-ACETAMINOPHEN Inactive KEFLEX 500 MG CAP 1 po qid KEFLEX 500 MG CAP 30 9114 CEPHALEXIN Inactive PROAIR HFA 108 (90 BASE) MCG/ACT AERS 2 puff q 4-6 hrs PRN 01/24 PROAIR HFA 108 (90 BASE) MCG/ACT AERS ALBUTEROL SULFATE Inactive PERCOCET 10-325 MG ORAL TABS 1 every 4 hours as needed PERCOCET 10-325 MG ORAL TABS 2307384 OXYCODONE-ACETAMINOPHEN Inactiv e EMLA 2.5-2.5 % EXT CREA apply to skin lesion q 6 hours, prn 2014 EMLA 2.5-2.5 % EXT CREA 229599 LIDOCAINE-PRILOCAINE Siri ctive PERCOCET 10-325 MG TABS 1 tab by mouth every 6 hours , use sparingly for severe pain PERCOCET 10-325 MG TABS 1592292 OXYCODONE-ACETAMINOPHEN Inactive GLUCOPHAGE 500 MG ORAL TABS one by mouth 3 times a day GLUCOPHAGE 500 MG ORAL TABS 332547 METFORMIN HCL Inactive AMOXICILLIN 875 MG TABS 1 tab by mouth twice daily 201 07/18/07 AMOXICILLIN 875 MG TABS 624713 AMOXICILLIN Inactive KEFLEX 500 MG CAP 1 po tid x 10 days KEFLEX 500 MG CAP 208127 CEPHALEXIN Inactive AMOXICILLIN 875 MG TABS 1 tab by mouth twice daily 201 07/19/27 AMOXICILLIN 875 MG TABS 314637 AMOXICILLIN Inactive AMOXICILLIN 875 MG TABS 1 tab by mouth twice daily 201 08/09/13 AMOXICILLIN 875 MG TABS 051569 AMOXICILLIN Inactive CIPRO 500 MG TAB 1 tablet by mouth twice daily CIPRO 500 MG TAB 654755 CIPROFLOXACIN HCL Inactive BACTRIM DS 800-160 MG TAB 1 tab by mouth twice daily 2 BACTRIM DS 800-160 MG TAB TRIMETHOPRIM-SULFAMETHOXAZOLE Inac tive LEVAQUIN 500 MG TABS 1 PO q day x 7 days LEVAQUIN 500 MG TABS 088015 LEVOFLOXACIN Inactive CLINDAMYCIN HCL 300 MG CAPS 1 po QID x 7 days CLINDAMYCIN HCL 300 MG CAPS 149226 CLINDAMYCIN HCL Inactive AUGMENTIN 875-125 MG TAB 1 tab by mouth twice daily with food 20 22/05/07 AUGMENTIN 875-125 MG TAB 945690 AMOXICILLIN-POT CLAVULA [place] Inactive DIFLUCAN 150 MG TAB 1 qODay x 2 doses DIFLUCAN 150 MG TAB 538317 FLUCONAZOLE Inactive PREDNISONE 20 MG TAB 2 tabs daily for 3 days, 1 t ab daily for 3 days, 1/2 tab daily for 2 days PREDNISONE 20 MG TAB 419295 PREDNISON E Inactive AUGMENTIN 875-125 MG TAB 1 tab by mouth twice daily with food 20 21/10/13 AUGMENTIN 875-125 MG TAB 225449 AMOXICILLIN-POT CLAVULA [place] Inactive Advance Directives Directive Description Start Date PERMISSION TO SHARE Immunizations Vaccine Administration Date Value Standard Alf cription Seasonal influenza vaccine, injectable, containing preservative, for > 3 years old (Afluria, FluLaval, Fluzone, Fluvirin, Fluarix, Agriflu(>= 18 yo)) Fluzone (>3 yrs.) [[id number]] Influenza, seasonal, inject able Seasonal influenza vaccine, injectable, preservative free, for > 3 years old (Afluria, FluLaval, Fluzone, Fluvirin, Fluarix, Agriflu(>= 18 yo)) Fluzone preservative free (>3 yrs.) [[id number]] Influenza, seasonal, injectable, preservative free Seasonal influenza vaccine, injectable, containing preservative, for > 3 years old (Afluria, FluLaval, Fluzone, Fluvirin, Fluarix, Agriflu(>= 18 yo)) Fluzone (>3 yrs.) [[id number]] Influenza, seasonal, inject able Seasonal influenza vaccine, injectable, containing preservative, for > 3 years old (Afluria, FluLaval, Fluzone, Fluvirin, Fluarix, Agriflu(>= 18 yo)) Fluzone (>3 yrs.) [[id number]] Influenza, seasonal, inject able dT (Diphtheria and [...] Panel - Chemistry sodium, serum 142 mmol/L 826-045 2352/05/12 potassium, serum 4.8 mmol/L 3.5-5.2 chloride, serum [...] Panel - Chemistry cholesterol, serum 165 mg/dL 205-136 8247/05/12 triglyceride, serum, fasting 524 mg/dL 30-200 HDL [...] negative Encounters Code Encounter Date Provider Facility CPT-99578 Level 3 Est. Patient 14:29:53 CDT Abhinav Galvan MD [facility] CPT-89088 Level 2 Est. Patient 16:33:01 CDT Kalpesh goins MD [facility] CPT-68053 Level 4 Est. Patient 16:44:56 CDT Abdirahman Rios MD [facility] CPT-63010 Level 2 Est. Patient 07:49:32 CDT Kalpesh goins MD [facility] CPT-31254 Level 3 New Patient 15:47:11 DIGITAL ARTIST Bj huber MD [facility] CPT-79832 Level 4 Est. Patient 14:37:38 DIGITAL ARTIST Abdirahman Rios MD [facility] CPT-91948 Level 2 Est. Patient 13:32:17 DIGITAL ARTIST Kalpesh goins MD [facility] CPT-16203 Level 3 Est. Patient 17:32:57 DIGITAL ARTIST Edilberto tiwari [facility] CPT-16642 Level 3 Est. Patient 17:22:33 DIGITAL ARTIST Edilberto tiwari [facility] CPT-22333 Level 2 Est. Patient 16:57:09 DIGITAL ARTIST Kalpesh goins MD [facility] CPT-15248 Level 3 Est. Patient 14:03:08 DIGITAL ARTIST Abdirahman Rios MD [facility] CPT-86649 Level 3 Est. Patient 18:12:34 CDT Shola Wright [facility] CPT-63359 Level 3 Est. Patient 19:34:46 CDT Shola Wright [facility] CPT-48478 Level 3 Est. Patient 14:19:37 CDT Abdirahman Rios MD [facility] CPT-72022 Level 3 Est. Patient 14:11:58 CDT Kalpesh goins MD [facility] CPT-98802 Level 3 Est. Patient 16:50:00 CDT Michelle BRADFORDP [facility] CPT-63199 Level 3 Est. Patient 17:11:32 DIGITAL ARTIST Brandie bates MD PhD [facility]-00379 Level 3 Est. Patient 16:31:47 DIGITAL ARTIST Shola Wright [facility] CPT-41106 Level 3 Est. Patient 17:51:10 DIGITAL ARTIST Abhinav Galvan MD [facility] [place]-86394 Level 4 Est. Patient 12:54:56 DIGITAL ARTIST Kalpesh goins MD [facility]-57827 Level 4 Est. Patient 12:53:56 DIGITAL ARTIST Kalpesh goins MD [facility]-36723 Level 3 Est. Patient 17:56:58 CDT Shola Wright [facility] CPT-68089 Level 3 Est. Patient 14:26:20 CDT Janak Maurizioamira butcher [facility] CPT-72626 Level 3 Est. Patient 09:38:41 CDT Shola Wright [facility] CPT-67032 Level 3 Est. Patient 14:45:26 CDT Edilberto tiwari [facility]-71712 Level 3 Est. Patient 10:51:33 CDT [facility] Level 3 Est. Patient 11:57:55 DIGITAL ARTIST Shola Wright [facility]-12366 Level 3 Est. Patient 09:53:33 DIGITAL ARTIST Edilberto tiwari [facility] CPT-88263 Level 3 Est. Patient 14:42:54 DIGITAL ARTIST Abhinav Galvan MD [facility]-01988 Level 3 Est. Patient 15:10:02 CDT Janak Maurizioamira butcher [facility] CPT-96294 Level 3 Est. Patient 15:20:20 CDT Theo dennis MD [facility] CPT-09098 Level 2 Est. Patient 14:08:57 CDT Kalpesh goins MD [facility] CPT-26097 Level 3 Est. Patient 13:56:19 CDT Abdirahman Rios MD [facility] CPT-17710 Level 3 Est. Patient 13:59:37 CDT Abdirahman Rios MD [facility] CPT-30119 Level 2 Est. Patient 14:44:59 CDT Kalpesh goins MD [facility] CPT-03917 Level 3 Est. Patient 06:06:23 CDT Edilberto tiwari DO [facility] CPT-56358 Level 3 Est. Patient 15:23:54 CDT Abdirahman Rios MD [facility] CPT-13803 Level 3 Est. Patient 15:43:49 CDT Abdirahman Rios MD [facility] CPT-22021 Level 3 Est. Patient 12:46:47 DIGITAL ARTIST Abdirahman Rios MD [facility] CPT-65993 Level 3 Est. Patient 08:13:35 DIGITAL ARTIST Abdirahman Rios MD [facility] CPT-49610 Level 2 Est. Patient 09:36:42 DIGITAL ARTIST Abdirahman Rios MD [facility] CPT-18304 Level 3 Est. Patient 10:56:43 CDT Abdirahman Rios MD [facility] CPT-78538 Level 3 Est. Patient 18:24:52 CDT Abdirahman Rios MD [facility] CPT-32848 Level 3 Est. Patient 13:27:22 CDT Abdirahman Rios MD [facility] Procedures Code Procedure Name Date Entry Date Standard Desc ription CPT-00052 Postop F/U Visit 15:27:43 CDT CPT-85624 Postop F/U Visit 14:40:59 CDT CPT-35532 Postop F/U Visit 15:02:46 CDT CPT-75815 Postop F/U Visit 11:29:00 DIGITAL ARTIST CPT-J0696 Rocephin 1000 mg (Ceftriaxone) 17:22:33 DIGITAL ARTIST CPT-33529 Postop F/U Visit 18:41:07 DIGITAL ARTIST CPT-20667 Postop F/U Visit 08:19:08 DIGITAL ARTIST CPT-81254 Immunization Single Admin 16:41:53 CDT 2013 CPT-60347 Fluzone Quadrivalent Intramuscular Suspe nsion 0.5 ML 16:41:53 CDT CPT-OV Office Visit 16:39:18 CDT CPT-OV Office Visit 16:16:36 CDT CPT-OV Office Visit 15:34:48 CDT CPT-40531 Postop F/U Visit 14:50:12 CDT CPT-59322 Postop F/U Visit 14:41:10 CDT CPT-47612 Venipuncture Draw Fee 11:38:04 DIGITAL ARTIST CPT-61974 Postop F/U Visit 19:02:59 DIGITAL ARTIST CPT-88120 Postop F/U Visit 12:04:54 DIGITAL ARTIST CPT-85451 Administration single or combination vac cine inc oral 15:56:43 CDT CPT-33944 Influenza split virus > age 3 15:56:43 CDT CPT-87905 Hand comp min 3V 14:25:19 CDT CPT-94602 Postop F/U Visit 21:40:51 CDT CPT-42024 Postop F/U Visit 10:58:43 CDT CPT-73608 Administration single or combination vac cine inc oral 12:33:54 DIGITAL ARTIST CPT-23825 Influenza Preservative Free split virus >age 3 12:33:54 DIGITAL ARTIST CPT-60535 Administration single or combination vac cine inc oral 09:30:51 CDT CPT-38814 Influenza split virus > age 3 09:30:51 CDT CPT-23207 Postop F/U Visit 15:14:53 CDT CPT-79885 Postop F/U Visit 13:50:14 CDT CPT-15858 Postop F/U Visit 13:34:52 CDT CPT-OV Office Visit 16:55:03 CDT CPT-65730 [place] of cervix w bx ECC 13:32:50 CDT 10/19 CPT-J1885 Toradol 60 mg (Ketorolac) 15:31:59 CDT 2011 CPT-J1885 Toradol 60 mg (Ketorolac) 15:23:54 CDT 2011 CPT-15078 Visit 11:34:37 DIGITAL ARTIST CPT-75116 Visit 10:52:39 DIGITAL ARTIST CPT-46907 Visit 10:12:02 DIGITAL ARTIST CPT-42147 Visit 11:22:43 DIGITAL ARTIST CPT-29413 Visit 11:24:12 DIGITAL ARTIST CPT-39179 Visit 10:47:05 DIGITAL ARTIST CPT-OV Office Visit 10:26:16 DIGITAL ARTIST CPT-OV Office Visit 15:34:31 DIGITAL ARTIST CPT-22656 Visit 10:42:08 DIGITAL ARTIST CPT-58150 Visit 10:52:45 DIGITAL ARTIST CPT-000 Give Appropriate Flu Vaccine 16:56:41 CDT 2 CPT-62280 Administration single or combination vac cine inc oral 10:33:21 CDT CPT-50964 Influenza split virus > age 3 10:33:21 CDT CPT-65901 Visit 13:23:09 CDT CPT-92419 Visit 18:24:52 CDT CPT-74091 Sono OB comp > 14 weeks 12:07:49 CDT 04/07
--- OUTSIDE RECORDS SUMMARY | 2020-01-18 16:13 | XMS REPORT | Clinical Summary ---
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 tSormy Julian MD ENCOUNTER FOR THERAPEUTIC DRUG MONITORING [...] mouth 3 times a day METFORMIN HCL 75514970487 Active Kalpesh Dong MD Active IBUPROFEN 600 MG ORAL TABS 1 by mouth twice a day IBUPROFEN 42955158499 Active ERNIE Higuera Active PERCOCET 10-325 MG TABS 1 tab by mouth every 6 hours , use sparingly for severe pain OXYCODONE-ACETAMINOPHEN 24080196095 Active Hira Moser HY[employer]OE[employer]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 TRAZODONE HCL 100 MG TAB 0.5 to 1 po qHS PRN Insomnia TRAZODONE HCL 43948336559 Active Abdirahman Rios MD Active CYMBALTA 30 MG CPEP 1 cap by mouth daily DULOXE CLEO HCL 01229255372 Active Abdirahman Rios MD Active EMLA 2.5-2.5 % EXT CREA apply to skin lesion q 6 hours, prn 2014 LIDOCAINE-PRILOCAINE 57477412548 No Longer Active Abdirahman Rios MD Active HYDROCODONE-ACETAMINOPHEN 5-325 MG TABS 1 po q6hr PRN pain HYDROCODONE-ACETAMINOPHEN 54450571216 Active Abdirahman Rios MD Active PERCOCET 10-325 MG ORAL TABS 1 every 4 hours as needed OXYCODONE-ACETAMINOPHEN 31042460561 No Longer Active Abdirahman Rios MD Active [id number] 50-325-40 MG ORAL CAPS 1-2 po TID IA N Headache [id number] 15170718459 Active Abdirahman Rios MD Active AUGMENTIN 875-125 MG TAB 1 tab by mouth twice daily with food 20 21/10/13 AMOXICILLIN-POT CLAVULANATE 31823772456 No Longer Active Ursula jasmina Karmenl HY[employer]OE[employer]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 PROAIR HFA 108 (90 BASE) MCG/ACT AERS 2 puff q 4-6 hrs PRN 01/24 ALBUTEROL SULFATE 10890359213 No Longer Active Kalpesh Dong MD Active ALPRAZOLAM 0.5 MG TABS 1 po BID PRN Anxiety ALPRA ZOLAM 49392983173 Active Abdirahman Rios MD Active CYCLOBENZAPRINE HCL 10 MG TABS 1 tablet by mouth three times daily as needed for muscle spasm/pain CYCLOBENZAPRINE HCL 93578482287 Active Abdirahman Rios MD Active PREDNISONE 20 MG TAB 2 tabs daily for 3 days, 1 t ab daily for 3 days, 1/2 tab daily for 2 days PREDNISONE 50358878849 No Longer Active Abdirahman Rios MD Active KEFLEX 500 MG CAP 1 po qid CEPHALEXIN 212772196 20 No Longer Active Kalpesh Dong MD Active PERCOCET 5-325 MG TAB 1 every 6 hours as needed OXYCODONE-ACETAMINOPHEN 13813329179 No Longer Active Shola MCGILL Active LC-5 LIDOCAINE 5 % CREA apply 1 time daily to affected area 2013 LIDOCAINE (ANORECTAL) 06598253123 No Longer Active Hira muniz 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[employer]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 HYDROCODONE-ACETAMINOPHEN 10-325 MG TABS 1 by mouth ev chaka 8 hours as needed for pain HYDROCODONE-ACETAMINOPHEN 31403805692 No Longer Active Jillina Frazell 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[employer]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 LORATADINE 10 MG TABS 1 tablet by mouth daily L ORATADINE 53639330784 No Longer Active Jillina Frazell HYDROE[employer]R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 DIFLUCAN 150 MG TAB 1 qODay x 2 doses FLUCONAZO LE 58085741182 No Longer Active Jillina Frazell HY[employer]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 CYCLOBENZAPRINE HCL 10 MG TABS 1/2 - 1 tab PO tid PRN back p ain, muscle spasm CYCLOBENZAPRINE HCL 45282432864 No Longer Active Karen Moser HYDROE[employer]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 AUGMENTIN 875-125 MG TAB 1 tab by mouth twice daily with food 20 22/05/07 AMOXICILLIN-POT CLAVULANATE 51494515763 No Longer Active Loida Rios MD Active MOBIC 15 MG TABS 1 tab daily MELOXICAM 648065716 14 No Longer Active Abdirahman Rios MD Active PERCOCET 7.5-325 MG TABS 1 PO tid PRN pain OXYCODONE-ACETAMINOPHEN 38283574543 No Longer Active Abdirahman Rios MD Active LIDODERM 5 % PTCH One patch to painful area IA N. On for 12 hrs, off for 12 hrs. LIDOCAINE 87245703405 No Longer Active Abdirahman Rios MD Active PERCOCET 7.5-325 MG TABS 1 PO q 8 hrs PRN pain OXYCODONE-ACETAMINOPHEN 46370900572 No Longer Active Shola MCGILL Active HYDROCODONE-ACETAMINOPHEN 7.5-325 MG TABS 1 by mouth e very 6 hours as needed for pain HYDROCODONE-ACETAMINOPHEN 01841093163 No Longer Active Good Julian MD Active CLINDAMYCIN HCL 300 MG CAPS 1 po QID x 7 days CLINDAMYCIN HCL 70257955974 No Longer Active Abdirahman Rios MD Activ e BACTRIM DS 800-160 MG TABS 1 po BID x 7 days 5 SULFAMETHOXAZOLE-TRIMETHOPRIM 55110080758 No Longer Active Abdirahman Rios MD Active ENDOCET 10-325 MG TABS 1 q 6 hr prn OXYCODONE-ACETAMINOPHEN 33888443233 No Longer Active Abdirahman Rios MD Active IBUPROFEN 800 MG TABS 1 tid prn IBUPROFEN 175276 34372 No Longer Active Abdirahman Rios MD Active BACTRIM DS 800-160 MG TABS by mouth twice a day 11/05 SULFAMETHOXAZOLE-TRIMETHOPRIM 26215427010 No Longer Active Good Julian MD Active HYDROCODONE-ACETAMINOPHEN 7.5-325 MG TABS 1 four times a day as needed for pain HYDROCODONE-ACETAMINOPHEN 72776611429 No Longer Activ e Good Julian MD Active KEFLEX 500 MG CAP 1 tab po tid CEPHALEXIN 657102 08007 No Longer Active Hira Moser APRN Active IBUPROFEN 800 MG TAB 1 pill three times daily as needed for pain IBUPROFEN 51706083759 No Longer Active Kalpesh Dong MD Active PROMETHAZINE-CODEINE 6.25-10 MG/5ML SYRP 1 tsp every 6 hrs prn c ough PROMETHAZINE-CODEINE 61854537579 No Longer Active Kalpesh Carr Active HYDROCODONE-ACETAMINOPHEN 5-325 MG TABS 1 tab by mouth every 6 hours as needed HYDROCODONE-ACETAMINOPHEN 46939665512 No Longer Activ e Shola MCGILL Active CEPHALEXIN 500 MG CAPS 1 PO bid x 7 days CEPHAL EXIN 32791900608 No Longer Active Shola MCGILL Active BACTRIM DS 800-160 MG TAB 1 tab by mouth twice daily 2 TRIMETHOPRIM-SULFAMETHOXAZOLE 28700466473 No Longer Active Kalpesh Dong MD Active HYDROCODONE-ACETAMINOPHEN 5-325 MG TABS 1 PO tid PRN pain 5 HYDROCODONE-ACETAMINOPHEN 62505738051 No Longer Active Abhinav Galvan MD Active IMPLANON 68 MG IMPL IMPLANTED IN LEFT ARM ETONO GESTREL 72062112111 No Longer Active Hira Moser APRN Active AMOXICILLIN 500 MG TABS 2 tabs PO bid x 10 d AM OXICILLIN 48498196425 No Longer Active Kalpesh Dong MD Active LEVAQUIN 500 MG TABS 1 PO q day x 7 days LEVOFL OXACIN 77661894567 No Longer Active Shola MCGILL Active AMITRIPTYLINE HCL 25 MG TAB 1 tab by mouth daily 60 minutes before bedtime AMITRIPTYLINE HCL 42003277105 No Longer Active Shola MCGILL Active LORTAB 5 5-500 MG TABS 1/2 to 1 tablet by mouth go ry 6 hours as needed for pain HYDROCODONE-ACETAMINOPHEN 47630514055 No Longer Active Shola MCGILL Active CEPHALEXIN 500 MG TABS Take one by mouth four times daily, morning, noon, early evening and bedtime. CEPHALEXIN 28942948078 No Long er Active Hira Moser APRN Active TYLENOL/CODEINE #3 300-30 MG TAB 1-2 po q6hr PRN Pain ACETAMINOPHEN-CODEINE 02821379772 No Longer Active Edilberto Marino DO Active PRISTIQ 50 MG [id number] 1 po qd DESVENLAFAXI NE SUCCINATE 95343203735 No Longer Active Edilberto Marino DO Active PENICILLIN V POTASSIUM 500 MG TAB 1 four times a day 2 PENICILLIN V POTASSIUM 17992492057 No Longer Active Edilberto Marino DO Active DOXYCYCLINE HYCLATE 100 MG CAPS Take one (1) tablet by mouth twice a day DOXYCYCLINE HYCLATE 75804843093 No Longer Active Ronnie Galvan MD Active HYDROCODONE-ACETAMINOPHEN 5-325 MG TABS 1 po q 6hr PRN Pain 2011 HYDROCODONE-ACETAMINOPHEN 83608372115 No Longer Active Jerson Perez RN Active BACTRIM DS 800-160 MG TAB 1 tab by mouth twice daily 2 TRIMETHOPRIM-SULFAMETHOXAZOLE 12936158655 No Longer Active Kalpesh oDng MD Active LORTAB 5 5-500 MG TABS 1/2 to 1 tablet by mouth go ry 4 hours as needed for pain HYDROCODONE-ACETAMINOPHEN 77986677916 No Longer Active Kalpesh Dong MD Active GENERESS FE 0.8-25 MG-MCG CHEW Take one by mouth daily NORETHIN-ETH ESTRADIOL-FE 50441641435 No Longer Active Kalpesh Dong MD Active HYDROCODONE-ACETAMINOPHEN 7.5-500 MG TABS 1-2 every 4 hours as needed HYDROCODONE-ACETAMINOPHEN 53308106136 No Longer Activ e Kalpesh Dong MD Active FERROUS SULFATE 325 (65 FE) MG TABS 1 tablet by mouth twice yung y FERROUS SULFATE 77587022186 No Longer Active Kalpesh Dong MD Active IBUPROFEN 600 MG TAB 1 po q6-8hr PRN IBUPROFEN 98606266057 No Longer Active Kalpesh Dong MD Active SPIRONOLACTONE 25 MG TAB 1 tablet by mouth daily 01/22 SPIRONOLACTONE 98481199570 No Longer Active Kalpesh Dong MD Acti ve HYDROCODONE-ACETAMINOPHEN 7.5-325 MG TABS 1 po QID PRN Pain 2011 HYDROCODONE-ACETAMINOPHEN 76568211234 No Longer Active Kalpesh Dong MD Active CLINDAMYCIN HCL 300 MG CAPS 1 po q6hr x 7 days CLINDAMYCIN HCL 32924128370 No Longer Active Edilberto Marino DO Active PREDNISONE 20 MG TAB 2 tabs daily for 4 days, 1 t ab daily for 4 days, 1/2 tab daily for 4 days PREDNISONE 72768700252 No Longer Active Edilberto Marino DO Active PERCOCET 5-325 MG TABS 1 tablet by mouth every 6 hours as ne eded for pain OXYCODONE-ACETAMINOPHEN 35136055710 No Longer Active Abdirahman Rios MD Active VITAMINS TABS Take one by mouth daily MV & MIN W/FE-FA TABS 01327179148 No Longer Active Abdirahman Rios MD Active LUIS 3-0.02 MG TABS 1 tablet by mouth daily as directed DROSPIRENONE-ETHINYL ESTRADIOL 46884144205 No Longer Active Abdirahman Rios MD Active LORATADINE 10 MG TABS 1 tablet by mouth daily L ORATADINE 66899224988 No Longer Active Kalpesh Dong MD Active HYDROCODONE-ACETAMINOPHEN 5-325 MG TABS 1 po q 6hr PRN Pain 2010 HYDROCODONE-ACETAMINOPHEN 95740464568 No Longer Active Edilberto Marino DO Active BACTRIM DS 800-160 MG TAB 1 tab by mouth twice daily 2 TRIMETHOPRIM-SULFAMETHOXAZOLE 01456713368 No Longer Active Abdirahman Rios MD Active 28-0.8 MG TABS Take one by mouth daily 09/20 VIT-FE FUMARATE-FA 99037550395 No Longer Active Abdirahman Rios MD Active CIPRO 500 MG TAB 1 tablet by mouth twice daily CIPROFLOXACIN HCL 93797986391 No Longer Active Abdirahman Rios MD Active BENADRYL 25 MG CAP 1 po q8hr PRN Congestion DIPHENHYDRAMINE HCL 49500994846 No Longer Active Abdirahman Rios MD Active ZOLOFT 50 MG TAB 1 po qd SERTRALINE HCL 137061 46102 No Longer Active Abdirahman Rios MD Active AMOXICILLIN 875 MG TABS 1 tab by mouth twice daily 201 08/09/13 AMOXICILLIN 14718106676 No Longer Active Abdirahman Rios MD Activ e AMOXICILLIN 875 MG TABS 1 tab by mouth twice daily 201 07/19/27 AMOXICILLIN 23157614396 No Longer Active Abdirahman Rios MD Activ e BACTRIM DS 800-160 MG TAB 2 tab by mouth twice daily 2 TRIMETHOPRIM-SULFAMETHOXAZOLE 41757384311 No Longer Active Abdirahman Rios MD Active KEFLEX 500 MG CAP 1 po tid x 10 days CEPHALEXIN 93626630674 No Longer Active Abdirahman Rios MD Active AMOXICILLIN 875 MG TABS 1 tab by mouth twice daily 201 07/18/07 AMOXICILLIN 21295888619 No Longer Active Abdirahman W Dillow MD Activ e BACTRIM DS 800-160 MG TAB 2 tab by mouth twice daily 2 BACTRIM DS 800-160 MG TAB TRIMETHOPRIM-SULFAMETHOXAZOLE Inactive ZOLOFT 50 MG TAB 1 po qd ZOLOFT 50 MG TAB 3129 41 SERTRALINE HCL Inactive BENADRYL 25 MG CAP 1 po q8hr PRN Congestion BENADRYL 25 MG CAP 8394741 DIPHENHYDRAMINE HCL Inactive 28-0.8 MG TABS Take one by mouth daily 09/20 28-0.8 MG TABS VIT-FE FUMARATE-FA Inactive HYDROCODONE-ACETAMINOPHEN 5-325 MG TABS 1 po q 6hr PRN Pain 2010 HYDROCODONE-ACETAMINOPHEN 5-325 MG TABS 559654 HYDROCODONE-ACETAMINOPHEN Inactive LORATADINE 10 MG TABS 1 tablet by mouth daily LORATADINE 10 MG TABS 966596 LORATADINE Inactive LUIS 3-0.02 MG TABS 1 tablet by mouth daily as directed LUIS 3-0.02 MG TABS DROSPIRENONE-ETHINYL ESTRADIOL Inactive VITAMINS TABS Take one by mouth daily VITAMINS TABS MV & MIN W/FE-FA TABS Inactive PERCOCET 5-325 MG TABS 1 tablet by mouth every 6 hours as ne eded for pain PERCOCET 5-325 MG TABS 2173728 OXYCODONE-ACETAMIN OPHEN Inactive PREDNISONE 20 MG TAB 2 tabs daily for 4 days, 1 t ab daily for 4 days, 1/2 tab daily for 4 days PREDNISONE 20 MG TAB 407759 PREDNISON E Inactive CLINDAMYCIN HCL 300 MG CAPS 1 po q6hr x 7 days CLINDAMYCIN HCL 300 MG CAPS 964593 CLINDAMYCIN HCL Inactive HYDROCODONE-ACETAMINOPHEN 7.5-325 MG TABS 1 po QID PRN Pain 2011 HYDROCODONE-ACETAMINOPHEN 7.5-325 MG TABS 201034 HYDROCODONE-ACETAMINOPHEN Inactive SPIRONOLACTONE 25 MG TAB 1 tablet by mouth daily 01/22 SPIRONOLACTONE 25 MG TAB 122186 SPIRONOLACTONE Inactive IBUPROFEN 600 MG TAB 1 po q6-8hr PRN IBUPROFEN 600 MG TAB 207373 IBUPROFEN Inactive FERROUS SULFATE 325 (65 FE) MG TABS 1 tablet by mouth twice yung y FERROUS SULFATE 325 (65 FE) MG TABS 696723 FERROUS SULF ATE Inactive HYDROCODONE-ACETAMINOPHEN 7.5-500 MG TABS 1-2 every 4 hours as needed HYDROCODONE-ACETAMINOPHEN 7.5-500 MG TABS HYDROCODONE-ACETAMINOPHEN Inactive GENERESS FE 0.8-25 MG-MCG CHEW Take one by mouth daily GENERESS FE 0.8-25 MG-MCG CHEW 0426751 NORETHIN-ETH ESTRADIOL-FE Inactive LORTAB 5 5-500 MG [...] PRN Pain 2011 HYDROCODONE-ACETAMINOPHEN 5-325 MG TABS 172764 HYDROCODONE-ACETAMINOPHEN Inactive DOXYCYCLINE HYCLATE 100 MG CAPS Take one (1) tablet by mouth twice a day DOXYCYCLINE HYCLATE 100 MG CAPS 3437568 DOXYCYCLINE HYCLATE Inactive PENICILLIN V POTASSIUM 500 MG TAB 1 four times a day 2 PENICILLIN V POTASSIUM 500 MG TAB 954469 PENICILLIN V POTASSIUM Siri ctive PRISTIQ 50 MG [id number] 1 po qd PRISTIQ 50 MG [id number] DESVENLAFAXINE SUCCINATE Inactive TYLENOL/CODEINE #3 300-30 MG TAB 1-2 po q6hr PRN Pain TYLENOL/CODEINE #3 300-30 MG TAB 327525 ACETAMINOPHEN-CODEINE Inact krishna CEPHALEXIN 500 MG TABS Take one by mouth four times daily, morning, noon, early evening and bedtime. CEPHALEXIN 500 MG TABS 189752 CEPHALEXIN Inactive LORTAB 5 5-500 MG TABS 1/2 to 1 tablet by mouth go ry 6 hours as needed for pain LORTAB 5 5-500 MG TABS HYDROCODONE-A CETAMINOPHEN Inactive AMITRIPTYLINE HCL 25 MG TAB 1 tab by mouth daily 60 minutes before bedtime AMITRIPTYLINE HCL 25 MG TAB 348864 AMITRIPTYLINE HCL Inactive AMOXICILLIN 500 MG TABS 2 tabs PO bid x 10 d 7 AMOXICILLIN 500 MG TABS 492111 AMOXICILLIN Inactive IMPLANON 68 MG IMPL IMPLANTED IN LEFT ARM IMPLANON 68 MG IMPL ETONOGESTREL Inactive HYDROCODONE-ACETAMINOPHEN 5-325 MG TABS 1 PO tid PRN pain 5 HYDROCODONE-ACETAMINOPHEN 5-325 MG TABS 336034 HYDROCODONE-ACETAMIN OPHEN Inactive BACTRIM DS 800-160 MG TAB 1 tab by mouth twice daily 2 BACTRIM DS 800-160 MG TAB TRIMETHOPRIM-SULFAMETHOXAZOLE Inac tive CEPHALEXIN 500 MG CAPS 1 PO bid x 7 days CEPHALEXIN 500 MG CAPS 566495 CEPHALEXIN Inactive HYDROCODONE-ACETAMINOPHEN 5-325 MG TABS 1 tab by mouth every 6 hours as needed HYDROCODONE-ACETAMINOPHEN 5-325 MG TABS 002292 HYDROCODONE-ACETAMINOPHEN Inactive PROMETHAZINE-CODEINE 6.25-10 MG/5ML SYRP 1 tsp every 6 hrs prn c ough PROMETHAZINE-CODEINE 6.25-10 MG/5ML SYRP 101067 PROMETH AZINE-CODEINE Inactive IBUPROFEN 800 MG TAB 1 pill three times daily as needed for pain IBUPROFEN 800 MG TAB 200443 IBUPROFEN Inactive KEFLEX 500 MG CAP 1 tab po tid KEFLEX 500 MG CAP 214529 CEPHALEXIN Inactive HYDROCODONE-ACETAMINOPHEN 7.5-325 MG TABS 1 four times a day as needed for pain HYDROCODONE-ACETAMINOPHEN 7.5-325 MG TABS 855409 HYDROCODONE-ACETAMINOPHEN Inactive BACTRIM DS 800-160 MG TABS by mouth twice a day 11/05 BACTRIM DS 800-160 MG TABS SULFAMETHOXAZOLE-TRIMETHOPRIM Inactive IBUPROFEN 800 MG TABS 1 tid prn IBUPROFEN 800 MG TABS 443974 IBUPROFEN Inactive ENDOCET 10-325 MG TABS 1 q 6 hr prn ENDOC ET 10-325 MG TABS 0044126 OXYCODONE-ACETAMINOPHEN Inactive HYDROCODONE-ACETAMINOPHEN 7.5-325 MG TABS 1 by mouth e very 6 hours as needed for pain HYDROCODONE-ACETAMINOPHEN 7.5-325 MG TABS 136154 HYDROCODONE-ACETAMINOPHEN Inactive PERCOCET 7.5-325 MG TABS 1 PO q 8 hrs PRN pain PERCOCET 7.5-325 MG TABS 7416527 OXYCODONE-ACETAMINOPHEN Inactive LIDODERM 5 % PTCH One patch to painful area IA N. On for 12 hrs, off for 12 hrs. LIDODERM 5 % PTCH 1952034 LIDOCAINE Inactiv e PERCOCET 7.5-325 MG TABS 1 PO tid PRN pain PERCOCET 7.5- 325 MG TABS 4779283 OXYCODONE-ACETAMINOPHEN Inactive MOBIC 15 MG TABS 1 tab daily MOBIC 15 MG TABS 15 2695 MELOXICAM Inactive CYCLOBENZAPRINE HCL 10 MG TABS 1/2 - 1 tab PO tid PRN back p ain, muscle spasm CYCLOBENZAPRINE HCL 10 MG TABS 751705 CYCLOBENZA JOSEPH HCL Inactive LORATADINE 10 MG TABS 1 tablet by mouth daily LORATADINE 10 MG TABS 394856 LORATADINE Inactive HYDROCODONE-ACETAMINOPHEN 10-325 MG TABS 1 by mouth ev chaka 8 hours as needed for pain HYDROCODONE-ACETAMINOPHEN 10-325 MG TABS 332712 HYDROCODONE-ACETAMINOPHEN Inactive LC-5 LIDOCAINE 5 % CREA apply 1 time daily to affected area 2013 LC-5 LIDOCAINE 5 % CREA LIDOCAINE (ANORECTAL) In active PERCOCET 5-325 MG TAB 1 every 6 hours as needed PERCOCET 5-325 MG TAB 5989383 OXYCODONE-ACETAMINOPHEN Inactive KEFLEX 500 MG CAP 1 po qid KEFLEX 500 MG CAP 30 9114 CEPHALEXIN Inactive PROAIR HFA 108 (90 BASE) MCG/ACT AERS 2 puff q 4-6 hrs PRN 01/24 PROAIR HFA 108 (90 BASE) MCG/ACT AERS ALBUTEROL SULFATE Inactive PERCOCET 10-325 MG ORAL TABS 1 every 4 hours as needed PERCOCET 10-325 MG ORAL TABS 7887582 OXYCODONE-ACETAMINOPHEN Inactiv e EMLA 2.5-2.5 % EXT CREA apply to skin lesion q 6 hours, prn 2014 EMLA 2.5-2.5 % EXT CREA 303210 LIDOCAINE-PRILOCAINE Larsen ctive AMOXICILLIN 875 MG TABS 1 tab by mouth twice daily 201 07/18/07 AMOXICILLIN 875 MG TABS 996884 AMOXICILLIN Inactive KEFLEX 500 MG CAP 1 po tid x 10 days KEFLEX 500 MG CAP 559168 CEPHALEXIN Inactive AMOXICILLIN 875 MG TABS 1 tab by mouth twice daily 201 07/19/27 AMOXICILLIN 875 MG TABS 503996 AMOXICILLIN Inactive AMOXICILLIN 875 MG TABS 1 tab by mouth twice daily 201 08/09/13 AMOXICILLIN 875 MG TABS 895026 AMOXICILLIN Inactive CIPRO 500 MG TAB 1 tablet by mouth twice daily CIPRO 500 MG TAB 876633 CIPROFLOXACIN HCL Inactive BACTRIM DS 800-160 MG TAB 1 tab by mouth twice daily 2 BACTRIM DS 800-160 MG TAB TRIMETHOPRIM-SULFAMETHOXAZOLE Inac tive LEVAQUIN 500 MG TABS 1 PO q day x 7 days LEVAQUIN 500 MG TABS 553959 LEVOFLOXACIN Inactive CLINDAMYCIN HCL 300 MG CAPS 1 po QID x 7 days CLINDAMYCIN HCL 300 MG CAPS 529467 CLINDAMYCIN HCL Inactive AUGMENTIN 875-125 MG TAB 1 tab by mouth twice daily with food 20 22/05/07 AUGMENTIN 875-125 MG TAB 023976 AMOXICILLIN-POT CLAVULA [place] Inactive DIFLUCAN 150 MG TAB 1 qODay x 2 doses DIFLUCAN 150 MG TAB 975711 FLUCONAZOLE Inactive PREDNISONE 20 MG TAB 2 tabs daily for 3 days, 1 t ab daily for 3 days, 1/2 tab daily for 2 days PREDNISONE 20 MG TAB 867102 PREDNISON E Inactive AUGMENTIN 875-125 MG TAB 1 tab by mouth twice daily with food 20 21/10/13 AUGMENTIN 875-125 MG TAB 388592 AMOXICILLIN-POT CLAVULA [place] Inactive Advance Directives Directive Description Start Date PERMISSION TO SHARE Immunizations Vaccine Administration Date Value Standard Alf cription Seasonal influenza vaccine, injectable, containing preservative, for > 3 years old (Afluria, FluLaval, Fluzone, Fluvirin, Fluarix, Agriflu(>= 18 yo)) Fluzone (>3 yrs.) [[id number]] Influenza, seasonal, inject able Seasonal influenza vaccine, injectable, preservative free, for > 3 years old (Afluria, FluLaval, Fluzone, Fluvirin, Fluarix, Agriflu(>= 18 yo)) Fluzone preservative free (>3 yrs.) [[id number]] Influenza, seasonal, injectable, preservative free Seasonal influenza vaccine, injectable, containing preservative, for > 3 years old (Afluria, FluLaval, Fluzone, Fluvirin, Fluarix, Agriflu(>= 18 yo)) Fluzone (>3 yrs.) [[id number]] Influenza, seasonal, inject able Seasonal influenza vaccine, injectable, containing preservative, for > 3 years old (Afluria, FluLaval, Fluzone, Fluvirin, Fluarix, Agriflu(>= 18 yo)) Fluzone (>3 yrs.) [[id number]] Influenza, seasonal, inject able dT (Diphtheria and [...] Panel - Chemistry sodium, serum 142 mmol/L 089-799 6701/05/12 potassium, serum 4.8 mmol/L 3.5-5.2 chloride, serum [...] Panel - Chemistry cholesterol, serum 165 mg/dL 389-668 3808/05/12 triglyceride, serum, fasting 524 mg/dL 30-200 HDL [...] negative Encounters Code Encounter Date Provider Facility CPT-95197 Level 2 Est. Patient 16:33:01 CDT Kalpesh goins MD [facility] CPT-48532 Level 4 Est. Patient 16:44:56 CDT Abdirahman Rios MD [facility] CPT-16587 Level 2 Est. 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 Patient 14:37:38 ROTARY PLANER SET UP OPERATOR Abdirahman Rios MD [facility] CPT-04555 Level 2 Est. Patient 13:32:17 ROTARY PLANER SET UP OPERATOR Kalpesh goins MD [facility] [place]-[id number] Level 3 Est. Patient 17:32:57 ROTARY PLANER SET UP OPERATOR Edilberto tiwari DO [facility] CPT-22770 Level 3 Est. Patient 17:22:33 ROTARY PLANER SET UP OPERATOR Edilberto tiwari [facility]-86654 Level 2 Est. Patient 16:57:09 ROTARY PLANER SET UP OPERATOR Kalpesh goins MD [facility] [place]-41708 Level 3 Est. Patient 14:03:08 ROTARY PLANER SET UP OPERATOR Abdirahman Rios MD [facility] CPT-06971 Level 3 Est. Patient 18:12:34 CDT Shola Keesha Adriana [facility] CPT-54385 Level 3 Est. Patient 19:34:46 CDT Shola Wright [facility] CPT-11107 Level 3 Est. Patient 14:19:37 CDT Abdirahman Rios MD [facility] CPT-04920 Level 3 Est. Patient 14:11:58 CDT Kalpesh goins MD [facility] CPT-75250 Level 3 Est. [facility] 16:50:00 [facility] Level 3 Est. Patient 17:11:32 ROTARY PLANER SET UP OPERATOR Brandie bates MD PhD [facility] CPT-57522 Level 3 Est. Patient 16:31:47 ROTARY PLANER SET UP OPERATOR Shola Houghsabi [facility] CPT-80154 Level 3 Est. Patient 17:51:10 ROTARY PLANER SET UP OPERATOR Abhinav Galvan MD [facility] CPT-85767 Level 4 Est. Patient 12:54:56 ROTARY PLANER SET UP OPERATOR Kalpesh goins MD [facility] [place]-[id number] Level 4 Est. Patient 12:53:56 ROTARY PLANER SET UP OPERATOR Kalpesh goins MD [facility] CPT-42512 Level 3 Est. Patient 17:56:58 CDT Shola Houghsabi [facility] CPT-15178 Level 3 Est. Patient 14:26:20 CDT Janak butcher [facility] CPT-09539 Level 3 Est. Patient 09:38:41 CDT Shola Houghsabi [facility] CPT-25144 Level 3 Est. Patient 14:45:26 CDT Edilberto tiwari DO [facility] CPT-05304 Level 3 Est. Patient 10:51:33 [facility] Level 3 Est. Patient 11:57:55 ROTARY PLANER SET UP OPERATOR Shola Wrgiht [facility] CPT-04717 Level 3 Est. Patient 09:53:33 ROTARY PLANER SET UP OPERATOR Edilberto tiwari [facility] CPT-11707 Level 3 Est. Patient 14:42:54 ROTARY PLANER SET UP OPERATOR Abhinav Galvan MD [facility] CPT-11746 Level 3 Est. Patient 15:10:02 CDT Janak Stevenamira guadalupe [facility] CPT-35917 Level 3 Est. Patient 15:20:20 CDT Theo dennis MD [facility]-49085 Level 2 Est. Patient 14:08:57 CDT Kalpesh goins MD [id number] Level 3 Est. Patient 13:56:19 CDT Abdirahman Rios MD [facility] CPT-31664 Level 3 Est. Patient 13:59:37 CDT Abdirahman Rios MD [facility] CPT-86247 Level 2 Est. Patient 14:44:59 CDT Kalpesh goins MD [id number] Level 3 Est. Patient 06:06:23 CDT Edilberto tiwari [facility] CPT-00311 Level 3 Est. Patient 15:23:54 CDT Abdirahman Rios MD [facility] CPT-75407 Level 3 Est. Patient 15:43:49 CDT Abdirahman Rios MD [facility] CPT-59317 Level 3 Est. 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 Patient 10:56:43 CDT Abdirahman Rios MD [facility] CPT-09985 Level 3 Est. Patient 18:24:52 CDT Abdirahman Rios MD [facility] CPT-23429 Level 3 Est. Patient 13:27:22 CDT Abdirahman Rios MD [facility] Procedures Code Procedure Name Date Entry Date Standard Desc ription CPT-91977 Postop F/U Visit 15:27:43 CDT CPT-22226 Postop F/U Visit 14:40:59 CDT CPT-83062 Postop F/U Visit 15:02:46 CDT CPT-38822 Postop F/U Visit 11:29:00 [employer] UP OPERATOR CPT-J0696 Rocephin 1000 mg (Ceftriaxone) 17:22:33 [employer] UP OPERATOR CPT-10820 Postop F/U Visit 18:41:07 [employer] UP OPERATOR CPT-37708 Postop F/U Visit 08:19:08 [employer] UP OPERATOR CPT-02441 Immunization Single Admin 16:41:53 CDT 2013 CPT-52767 Fluzone Quadrivalent Intramuscular Suspe nsion 0.5 ML 16:41:53 CDT CPT-OV Office Visit 16:39:18 CDT CPT-OV Office Visit 16:16:36 CDT CPT-OV Office Visit 15:34:48 CDT CPT-37612 Postop F/U Visit 14:50:12 CDT CPT-45539 Postop F/U Visit 14:41:10 CDT CPT-29317 Venipuncture Draw Fee 11:38:04 [employer] UP OPERATOR CPT-90211 Postop F/U Visit 19:02:59 [employer] UP OPERATOR CPT-49542 Postop F/U Visit 12:04:54 [employer] UP OPERATOR CPT-14879 Administration single or combination vac cine inc oral 15:56:43 CDT CPT-74300 Influenza split virus > age 3 15:56:43 CDT CPT-51900 Hand comp min 3V 14:25:19 CDT CPT-09431 Postop F/U Visit 21:40:51 CDT CPT-83269 Postop F/U Visit 10:58:43 CDT CPT-89433 Administration single or combination vac cine inc oral 12:33:54 [employer] UP OPERATOR CPT-14774 Influenza Preservative Free split virus >age 3 12:33:54 [employer] UP OPERATOR CPT-90575 Administration single or combination vac cine inc oral 09:30:51 CDT CPT-53448 Influenza split virus > age 3 09:30:51 CDT CPT-09782 Postop F/U Visit 15:14:53 CDT CPT-77704 Postop F/U Visit 13:50:14 CDT CPT-70331 Postop F/U Visit 13:34:52 CDT CPT-OV Office Visit 16:55:03 CDT CPT-79130 Labelle of cervix w bx ECC 13:32:50 CDT 10/19 CPT-J1885 Toradol 60 mg (Ketorolac) 15:31:59 CDT 2011 CPT-J1885 Toradol 60 mg (Ketorolac) 15:23:54 CDT 2011 CPT-54625 Visit 11:34:37 [employer] SET UP OPERATOR CPT-55064 Visit 10:52:39 [employer] SET UP OPERATOR CPT-36278 Visit 10:12:02 [employer] SET UP OPERATOR CPT-06596 Visit 11:22:43 [employer] SET UP OPERATOR CPT-24716 Visit 11:24:12 [employer] SET UP OPERATOR CPT-36298 Visit 10:47:05 [employer] SET UP OPERATOR CPT-OV Office Visit 10:26:16 [employer] SET UP OPERATOR CPT-OV Office Visit 15:34:31 [employer] UP OPERATOR CPT-78304 Visit 10:42:08 [employer] SET UP OPERATOR CPT-06137 Visit 10:52:45 [employer] UP OPERATOR CPT-000 Give Appropriate Flu Vaccine 16:56:41 CDT 2 CPT-76888 Administration single or combination vac cine inc oral 10:33:21 CDT CPT-59716 Influenza split virus > age 3 10:33:21 CDT CPT-84010 Visit 13:23:09 CDT CPT-57012 Visit 18:24:52 CDT CPT-32798 Sono OB comp > 14 weeks 12:07:49 CDT 04/07
--- OUTSIDE RECORDS SUMMARY | 2020-01-18 16:13 | XMS REPORT | Clinical Summary ---
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 [...] MD LARGE FOR GESTATIONAL AGE ICD-656.60 Inactive bAdirahman Rios MD MASTALGIA ICD-611.71 Inactive Abdirahman Carr [...] apply q 6 hours, prn 08/03 LIDOCAINE [id number] No Longer Active Kalpesh Dong MD Active PERCOCET 10-325 MG TABS 1 tablet every 8 hours as needed for antonia n OXYCODONE-ACETAMINOPHEN 01253428085 No Longer Active Kalpesh Dong MD Active HYDROCODONE-ACETAMINOPHEN 5-325 MG TABS 1 tab by mouth every 6 hours as needed for pain HYDROCODONE-ACETAMINOPHEN 19161942050 No Longer Active Kalpesh Dong MD Active PERCOCET 10-325 MG ORAL TABS 1 every 4 hous as needed OXYCODONE-ACETAMINOPHEN 23873629316 Active Hira Moser APRN Active GLYDO 2 % EXT GEL apply to painful areas as needed LIDOCAINE HCL 42065834973 Active Kalpesh Dong MD Active LC-4 LIDOCAINE 4 % EXT CREA apply to painful area every 12 h ours or as needed LIDOCAINE 98601790247 Active Kalpesh Dong MD Active AUGMENTIN 875-125 MG TAB 1 tab by mouth twice daily with food 20 23/05/16 AMOXICILLIN-POT CLAVULANATE 01663011187 No Longer Active Lizeth hi Yokum HAND SPRING REPAIRER 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 FLUTICASONE PROPIONATE 38969295458 No Longer Ac tive Rajni Yokum HAND SPRING REPAIRER Active PERCOCET 10-325 MG ORAL TABS take 1 tab by mouth q 4hours as needed for pain OXYCODONE-ACETAMINOPHEN 97384549169 No Longer Active Rajni Yokum HAND SPRING REPAIRER Active PERCOCET 10-325 MG ORAL TABS one every 6 hours prn pain OXYCODONE-ACETAMINOPHEN 07239676305 No Longer Active Rajni Yokum HAND SPRING REPAIRER Active IBUPROFEN 800 MG TABS 1 tab po tid, with food I BUPROFEN 93581170442 Active Hira Moser APRN Active DICLOFENAC SODIUM 50 MG TBEC 1 tablet by mouth four times da tom PRN Pain DICLOFENAC SODIUM 39073510525 No Longer Active Rajni Yokum HAND SPRING REPAIRER Active VIIBRYD 10 & 20 & 40 MG KIT 1 po qd as directed 07/24 VILAZODONE HCL 73498114143 No Longer Active Rajni Yokum HAND SPRING REPAIRER Active ONDANSETRON 4 MG TBDP 1 q4h PRN nausea ONDANSET KELBY 03613698529 No Longer Active Rajnicristina Oconnorum HAND SPRING REPAIRER Active PERCOCET 10-325 MG TABS 1 tablet every 8 hours as needed for antonia n OXYCODONE-ACETAMINOPHEN 76519903388 No Longer Active Rajni cox HAND SPRING REPAIRER Active HYDROCODONE-ACETAMINOPHEN 5-325 MG TABS 1 po TID PRN Pain 9 HYDROCODONE-ACETAMINOPHEN 66613227827 No Longer Active Abdirahman Rios MD Active [id number] 50-325-40 MG ORAL CAPS 1-2 po TID [place] N Headache [id number] 18255917261 No Longer Act krishna Kalpesh Dong MD Active ALPRAZOLAM 0.5 MG TABS 1 po BID PRN Anxiety ALP RAZOLAM 50884144710 No Longer Active Kalpesh Dong MD Active TRAZODONE HCL 100 MG TAB 0.5 to 1 po qHS PRN Insomnia TRAZODONE HCL 51161365916 No Longer Active Kalpesh Dong MD Activ e HYDROCODONE-ACETAMINOPHEN 5-325 MG TABS 1 po q6hr PRN Pain 04/09 HYDROCODONE-ACETAMINOPHEN 06295644119 No Longer Active Kalpesh Dong MD Active CYMBALTA 30 MG CPEP 1 cap by mouth daily DULOXE CLEO HCL 40559438152 No Longer Active Abdirahman Rios MD Active IBUPROFEN 600 MG ORAL TABS 1 by mouth twice a day 2014 IBUPROFEN 94300826909 No Longer Active Abdirahman Rios MD Activ e PERCOCET 5-325 MG TAB 1 tab po q 6 hours, prn severe pain 1 OXYCODONE-ACETAMINOPHEN 18279788813 No Longer Active Abdirahman Rios MD Active SPRINTEC 28 0.25-35 MG-MCG TABS 1 pill by mouth daily for bi rth control NORGESTIMATE-ETH ESTRADIOL 15727886342 No Longer Acti ve Matthewllina Joyzell HAND SPRING REPAIRER Active CYCLOBENZAPRINE HCL 10 MG TABS 1 tablet by mouth three times daily as needed for muscle spasm/pain CYCLOBENZAPRINE HCL 86948552993 No Longer Active Jillina Frazell HAND SPRING REPAIRER Active HYDROCODONE-ACETAMINOPHEN 5-325 MG TABS 1 po q6hr PRN Pain 03/09 HYDROCODONE-ACETAMINOPHEN 75462761749 No Longer Active Matthewllina Joyzel l HAND SPRING REPAIRER Active AUGMENTIN 500-125 MG ORAL TABS 1 by mouth twice a day AMOXICILLIN-POT CLAVULANATE 72841666736 No Longer Active Jillina Frazell HAND SPRING REPAIRER Active DICLOFENAC SODIUM 50 MG TBEC 1 tablet by mouth four times da tom PRN Pain DICLOFENAC SODIUM 22670821607 No Longer Active Karenin a Karmenl HAND SPRING REPAIRER Active PROMETHAZINE HCL 25 MG TABS 1 four times a day as needed for nausea/vomiting PROMETHAZINE HCL 12004632867 No Longer Active Abdirahman Rios MD Active HYDROCODONE-ACETAMINOPHEN 5-325 MG TABS 1 tab by mouth every 6 hours as needed PRN Pain HYDROCODONE-ACETAMINOPHEN 26594928143 No Longer Active Abdirahman Rios MD Active GEMFIBROZIL 600 MG TABS 1 po BID GEMFIBROZIL 53410320 005 Active Abdirahman Rios MD Active PERCOCET 5-325 MG ORAL TABS 1 every 6 hours as needed OXYCODONE-ACETAMINOPHEN 61679773374 No Longer Active Abdirahman Rios MD Active PERCOCET 5-325 MG TAB 1 tab po q 6 -8 hours, prn for severe pain OXYCODONE-ACETAMINOPHEN 96294061079 No Longer Active Abdirahman Rios MD Active HYDROCODONE-ACETAMINOPHEN 5-325 MG TABS 1 po q6hr PRN pain 06/30 HYDROCODONE-ACETAMINOPHEN 18515092433 No Longer Active Hira roman HAND SPRING REPAIRER Active GLUCOPHAGE 500 MG ORAL TABS one by mouth 3 times a day METFORMIN HCL 92055939336 No Longer Active Matthewllina Karmenl HAND SPRING REPAIRER Ac tive PERCOCET 10-325 MG TABS 1 tab by mouth every 6 hours , use sparingly for severe pain OXYCODONE-ACETAMINOPHEN 44520533470 No Longer A ctive Abdirahman Rios MD Active EMLA 2.5-2.5 % EXT CREA apply to skin lesion q 6 hours, prn 2014 LIDOCAINE-PRILOCAINE 06139117681 No Longer Active Abdirahman Rios MD Active PERCOCET 10-325 MG ORAL TABS 1 every 4 hours as needed OXYCODONE-ACETAMINOPHEN 81718287037 No Longer Active Abdirahman Rios MD Active AUGMENTIN 875-125 MG TAB 1 tab by mouth twice daily with food 20 21/10/13 AMOXICILLIN-POT CLAVULANATE 60046976541 No Longer Active Ursula Moser APRN Active PROAIR HFA 108 (90 BASE) MCG/ACT AERS 2 puff q 4-6 hrs PRN 01/24 ALBUTEROL SULFATE 21199934764 No Longer Active Kalpesh Dong MD Active PREDNISONE 20 MG TAB 2 tabs daily for 3 days, 1 t ab daily for 3 days, 1/2 tab daily for 2 days PREDNISONE 34394491264 No Longer Active Abdirahman Rios MD Active KEFLEX 500 MG CAP 1 po qid CEPHALEXIN 389573804 20 No Longer Active Kalpesh Dong MD Active PERCOCET 5-325 MG TAB 1 every 6 hours as needed OXYCODONE-ACETAMINOPHEN 08663841463 No Longer Active Shola MCGILL Active LC-5 LIDOCAINE 5 % CREA apply 1 time daily to affected area 2013 LIDOCAINE (ANORECTAL) 85841425636 No Longer Active Hira muniz HAND SPRING REPAIRER Active HYDROCODONE-ACETAMINOPHEN 10-325 MG TABS 1 by mouth ev chaka 8 hours as needed for pain HYDROCODONE-ACETAMINOPHEN 53050923827 No Longer Active Jillina Karmenl HAND SPRING REPAIRER Active LORATADINE 10 MG TABS 1 tablet by mouth daily L ORATADINE 61777144787 No Longer Active Jillina Frazell HAND SPRING REPAIRER Active DIFLUCAN 150 MG TAB 1 qODay x 2 doses FLUCONAZO LE 86456805597 No Longer Active Jillina Frazell HAND SPRING REPAIRER Active CYCLOBENZAPRINE HCL 10 MG TABS 1/2 - 1 tab PO tid PRN back p ain, muscle spasm CYCLOBENZAPRINE HCL 65664634235 No Longer Active Karen siri Frazell HAND SPRING REPAIRER Active AUGMENTIN 875-125 MG TAB 1 tab by mouth twice daily with food 20 22/05/07 AMOXICILLIN-POT CLAVULANATE 36876635774 No Longer Active Loida Rios MD Active MOBIC 15 MG TABS 1 tab daily MELOXICAM 916873243 14 No Longer Active Abdirahman Rios MD Active PERCOCET 7.5-325 MG TABS 1 PO tid PRN pain OXYCODONE-ACETAMINOPHEN 09130557980 No Longer Active Abdirahman Rios MD Active LIDODERM 5 % PTCH One patch to painful area [place]. On for 12 hrs, off for 12 hrs. LIDOCAINE 31074229384 No Longer Active Abdirahman Rios MD Active PERCOCET 7.5-325 MG TABS 1 PO q 8 hrs PRN pain OXYCODONE-ACETAMINOPHEN 97161100804 No Longer Active Shola MCGILL Active HYDROCODONE-ACETAMINOPHEN 7.5-325 MG TABS 1 by mouth e very 6 hours as needed for pain HYDROCODONE-ACETAMINOPHEN 99089509237 No Longer Active Good Julian MD Active CLINDAMYCIN HCL 300 MG CAPS 1 po QID x 7 days CLINDAMYCIN HCL 39203711563 No Longer Active Abdirahman Rios MD Activ e BACTRIM DS 800-160 MG TABS 1 po BID x 7 days 5 SULFAMETHOXAZOLE-TRIMETHOPRIM 29005304284 No Longer Active Abdirahman Rios MD Active ENDOCET 10-325 MG TABS 1 q 6 hr prn OXYCODONE-ACETAMINOPHEN 48831968242 No Longer Active Abdirahman Rios MD Active IBUPROFEN 800 MG TABS 1 tid prn IBUPROFEN 358925 95946 No Longer Active Abdirahman Rios MD Active BACTRIM DS 800-160 MG TABS by mouth twice a day 11/05 SULFAMETHOXAZOLE-TRIMETHOPRIM 14524006435 No Longer Active Good Julian MD Active HYDROCODONE-ACETAMINOPHEN 7.5-325 MG TABS 1 four times a day as needed for pain HYDROCODONE-ACETAMINOPHEN 66573618869 No Longer Activ e Good Julian MD Active KEFLEX 500 MG CAP 1 tab po tid CEPHALEXIN 150516 07911 No Longer Active Hira Moser APRN Active IBUPROFEN 800 MG TAB 1 pill three times daily as needed for pain IBUPROFEN 76862784280 No Longer Active Kalpesh Dong MD Active PROMETHAZINE-CODEINE 6.25-10 MG/5ML SYRP 1 tsp every 6 hrs prn c ough PROMETHAZINE-CODEINE 78042588884 No Longer Active Kalpesh Carr Active HYDROCODONE-ACETAMINOPHEN 5-325 MG TABS 1 tab by mouth every 6 hours as needed HYDROCODONE-ACETAMINOPHEN 07729358811 No Longer Activ e Shola MCGILL Active CEPHALEXIN 500 MG CAPS 1 PO bid x 7 days CEPHAL EXIN 70392486984 No Longer Active Shola MCGILL Active BACTRIM DS 800-160 MG TAB 1 tab by mouth twice daily 2 TRIMETHOPRIM-SULFAMETHOXAZOLE 63097777977 No Longer Active Kalpesh Dong MD Active HYDROCODONE-ACETAMINOPHEN 5-325 MG TABS 1 PO tid PRN pain 5 HYDROCODONE-ACETAMINOPHEN 15167960340 No Longer Active Abhinav Galvan MD Active IMPLANON 68 MG IMPL IMPLANTED IN LEFT ARM ETONO GESTREL 11244860922 No Longer Active Hira Moser APRN Active AMOXICILLIN 500 MG TABS 2 tabs PO bid x 10 d AM OXICILLIN 03050159103 No Longer Active Kalpesh Dong MD Active LEVAQUIN 500 MG TABS 1 PO q day x 7 days LEVOFL OXACIN 49988809608 No Longer Active Shola MCGILL Active AMITRIPTYLINE HCL 25 MG TAB 1 tab by mouth daily 60 minutes before bedtime AMITRIPTYLINE HCL 27950800794 No Longer Active Shola MCGILL Active LORTAB 5 5-500 MG TABS 1/2 to 1 tablet by mouth go ry 6 hours as needed for pain HYDROCODONE-ACETAMINOPHEN 12599441750 No Longer Active Shola MCGILL Active CEPHALEXIN 500 MG TABS Take one by mouth four times daily, morning, noon, early evening and bedtime. CEPHALEXIN 97558182935 No Long er Active Hira Moser APRN Active TYLENOL/CODEINE #3 300-30 MG TAB 1-2 po q6hr PRN Pain ACETAMINOPHEN-CODEINE 39835803108 No Longer Active Edilberto Marino DO Active PRISTIQ 50 MG [id number] 1 po qd DESVENLAFAXI NE SUCCINATE 81023186525 No Longer Active Edilberto Marino DO Active PENICILLIN V POTASSIUM 500 MG TAB 1 four times a day 2 PENICILLIN V POTASSIUM 49337091492 No Longer Active Edilberto Marino DO Active DOXYCYCLINE HYCLATE 100 MG CAPS Take one (1) tablet by mouth twice a day DOXYCYCLINE HYCLATE 62656955758 No Longer Active Ronnie Galvan MD Active HYDROCODONE-ACETAMINOPHEN 5-325 MG TABS 1 po q 6hr PRN Pain 2011 HYDROCODONE-ACETAMINOPHEN 23648046430 No Longer Active Patri joan Perez RN Active BACTRIM DS 800-160 MG TAB 1 tab by mouth twice daily 2 TRIMETHOPRIM-SULFAMETHOXAZOLE 74243941476 No Longer Active Kalpesh Dong MD Active LORTAB 5 5-500 MG TABS 1/2 to 1 tablet by mouth go ry 4 hours as needed for pain HYDROCODONE-ACETAMINOPHEN 78928650490 No Longer Active Kalpesh Dong MD Active GENERESS FE 0.8-25 MG-MCG CHEW Take one by mouth daily NORETHIN-ETH ESTRADIOL-FE 17584342954 No Longer Active Kalpesh Dong MD Active HYDROCODONE-ACETAMINOPHEN 7.5-500 MG TABS 1-2 every 4 hours as needed HYDROCODONE-ACETAMINOPHEN 92258669735 No Longer Activ e Kalpesh Dong MD Active FERROUS SULFATE 325 (65 FE) MG TABS 1 tablet by mouth twice yung y FERROUS SULFATE 13202485144 No Longer Active Kalpesh Dong MD Active IBUPROFEN 600 MG TAB 1 po q6-8hr PRN IBUPROFEN 49500034706 No Longer Active Kalpesh Dong MD Active SPIRONOLACTONE 25 MG TAB 1 tablet by mouth daily 01/22 SPIRONOLACTONE 79910136215 No Longer Active Kalpesh Dong MD Acti ve HYDROCODONE-ACETAMINOPHEN 7.5-325 MG TABS 1 po QID PRN Pain 2011 HYDROCODONE-ACETAMINOPHEN 74209967610 No Longer Active Kalpesh Dong MD Active CLINDAMYCIN HCL 300 MG CAPS 1 po q6hr x 7 days CLINDAMYCIN HCL 83837381683 No Longer Active Edilberto Marino DO Active PREDNISONE 20 MG TAB 2 tabs daily for 4 days, 1 t ab daily for 4 days, 1/2 tab daily for 4 days PREDNISONE 93102067096 No Longer Active Edilberto Marino DO Active PERCOCET 5-325 MG TABS 1 tablet by mouth every 6 hours as ne eded for pain OXYCODONE-ACETAMINOPHEN 95482462889 No Longer Active Abdirahman Rios MD Active VITAMINS TABS Take one by mouth daily MV & MIN W/FE-FA TABS 05927070855 No Longer Active Abdirahman Rios MD Active LUIS 3-0.02 MG TABS 1 tablet by mouth daily as directed DROSPIRENONE-ETHINYL ESTRADIOL 55961259030 No Longer Active Abdirahman Rios MD Active LORATADINE 10 MG TABS 1 tablet by mouth daily L ORATADINE 97289284457 No Longer Active Kalpesh Dong MD Active HYDROCODONE-ACETAMINOPHEN 5-325 MG TABS 1 po q 6hr PRN Pain 2010 HYDROCODONE-ACETAMINOPHEN 29336110652 No Longer Active Edilberto Marino DO Active BACTRIM DS 800-160 MG TAB 1 tab by mouth twice daily 2 TRIMETHOPRIM-SULFAMETHOXAZOLE 17163438769 No Longer Active Abdirahman Rios MD Active 28-0.8 MG TABS Take one by mouth daily 09/20 VIT-FE FUMARATE-FA 75545708330 No Longer Active Abdirahman Rios MD Active CIPRO 500 MG TAB 1 tablet by mouth twice daily CIPROFLOXACIN HCL 76636699119 No Longer Active Abdirahman Rios MD Active BENADRYL 25 MG CAP 1 po q8hr PRN Congestion DIPHENHYDRAMINE HCL 08162535954 No Longer Active Abdirahman Rios MD Active ZOLOFT 50 MG TAB 1 po qd SERTRALINE HCL 082605 42277 No Longer Active Abdirahman Rios MD Active AMOXICILLIN 875 MG TABS 1 tab by mouth twice daily 201 08/09/13 AMOXICILLIN 06470470734 No Longer Active Abdirahman Rios MD Activ e AMOXICILLIN 875 MG TABS 1 tab by mouth twice daily 201 07/19/27 AMOXICILLIN 71802970643 No Longer Active Abdirahman Rios MD Activ e BACTRIM DS 800-160 MG TAB 2 tab by mouth twice daily 2 TRIMETHOPRIM-SULFAMETHOXAZOLE 31753887452 No Longer Active Abdirahman Rios MD Active KEFLEX 500 MG CAP 1 po tid x 10 days CEPHALEXIN 79989576956 No Longer Active Abdirahman Rios MD Active AMOXICILLIN 875 MG TABS 1 tab by mouth twice daily 201 07/18/07 AMOXICILLIN 83537142678 No Longer Active Abdirahman Rios MD Activ e BACTRIM DS 800-160 MG TAB 2 tab by mouth twice daily 2 BACTRIM DS 800-160 MG TAB 320185 TRIMETHOPRIM-SULFAMETHOXAZOLE Inactive ZOLOFT 50 MG TAB 1 po qd ZOLOFT 50 MG TAB 3129 41 SERTRALINE HCL Inactive BENADRYL 25 MG CAP 1 po q8hr PRN Congestion BENADRYL 25 MG CAP 0388806 DIPHENHYDRAMINE HCL Inactive 28-0.8 MG TABS Take one by mouth daily 09/20 28-0.8 MG TABS VIT-FE FUMARATE-FA Inactive HYDROCODONE-ACETAMINOPHEN 5-325 MG TABS 1 po q 6hr PRN Pain 2010 HYDROCODONE-ACETAMINOPHEN 5-325 MG TABS 765782 HYDROCODONE-ACETAMINOPHEN Inactive LORATADINE 10 MG TABS 1 tablet by mouth daily LORATADINE 10 MG TABS 799443 LORATADINE Inactive LUIS 3-0.02 MG TABS 1 tablet by mouth daily as directed LUIS 3-0.02 MG TABS 132008 DROSPIRENONE-ETHINYL ESTRADIOL Inactive VITAMINS TABS Take one by mouth daily VITAMINS TABS MV & MIN W/FE-FA TABS Inactive PERCOCET 5-325 MG TABS 1 tablet by mouth every 6 hours as ne eded for pain PERCOCET 5-325 MG TABS 6204048 OXYCODONE-ACETAMIN OPHEN Inactive PREDNISONE 20 MG TAB 2 tabs daily for 4 days, 1 t ab daily for 4 days, 1/2 tab daily for 4 days PREDNISONE 20 MG TAB 206603 PREDNISON E Inactive CLINDAMYCIN HCL 300 MG CAPS 1 po q6hr x 7 days CLINDAMYCIN HCL 300 MG CAPS 680903 CLINDAMYCIN HCL Inactive HYDROCODONE-ACETAMINOPHEN 7.5-325 MG TABS 1 po QID PRN Pain 2011 HYDROCODONE-ACETAMINOPHEN 7.5-325 MG TABS 562330 HYDROCODONE-ACETAMINOPHEN Inactive SPIRONOLACTONE 25 MG TAB 1 tablet by mouth daily 01/22 SPIRONOLACTONE 25 MG TAB 692809 SPIRONOLACTONE Inactive IBUPROFEN 600 MG TAB 1 po q6-8hr PRN IBUPROFEN 600 MG TAB 760457 IBUPROFEN Inactive FERROUS SULFATE 325 (65 FE) MG TABS 1 tablet by mouth twice yung y FERROUS SULFATE 325 (65 FE) MG TABS 151831 FERROUS SULF ATE Inactive HYDROCODONE-ACETAMINOPHEN 7.5-500 MG TABS 1-2 every 4 hours as needed HYDROCODONE-ACETAMINOPHEN 7.5-500 MG TABS HYDROCODONE-ACETAMINOPHEN Inactive GENERESS FE 0.8-25 MG-MCG CHEW Take one by mouth daily GENERESS FE 0.8-25 MG-MCG CHEW [id number] NORETHIN-ETH ESTRADIOL-FE Inactive LORTAB 5 5-500 MG TABS 1/2 to 1 tablet by mouth go ry 4 hours as needed for pain LORTAB 5 5-500 MG TABS HYDROCODONE-A CETAMINOPHEN Inactive BACTRIM DS 800-160 MG TAB 1 tab by mouth twice daily 2 BACTRIM DS 800-160 MG TAB 236369 TRIMETHOPRIM-SULFAMETHOXAZOLE Inac tive HYDROCODONE-ACETAMINOPHEN 5-325 MG TABS 1 po q 6hr PRN Pain 2011 HYDROCODONE-ACETAMINOPHEN 5-325 MG TABS 780572 HYDROCODONE-ACETAMINOPHEN Inactive DOXYCYCLINE HYCLATE 100 MG CAPS Take one (1) tablet by mouth twice a day DOXYCYCLINE HYCLATE 100 MG CAPS 4803489 DOXYCYCLINE HYCLATE Inactive PENICILLIN V POTASSIUM 500 MG TAB 1 four times a day 2 PENICILLIN V POTASSIUM 500 MG TAB 945855 PENICILLIN V POTASSIUM Siri ctive PRISTIQ 50 MG [id number] 1 po qd PRISTIQ 50 MG [id number] DESVENLAFAXINE SUCCINATE Inactive TYLENOL/CODEINE #3 300-30 MG TAB 1-2 po q6hr PRN Pain TYLENOL/CODEINE #3 300-30 MG TAB 233051 ACETAMINOPHEN-CODEINE Inact krishna CEPHALEXIN 500 MG TABS Take one by mouth four times daily, morning, noon, early evening and bedtime. CEPHALEXIN 500 MG TABS 438188 CEPHALEXIN Inactive LORTAB 5 5-500 MG TABS 1/2 to 1 tablet by mouth go ry 6 hours as needed for pain LORTAB 5 5-500 MG TABS HYDROCODONE-A CETAMINOPHEN Inactive AMITRIPTYLINE HCL 25 MG TAB 1 tab by mouth daily 60 minutes before bedtime AMITRIPTYLINE HCL 25 MG TAB 913353 AMITRIPTYLINE HCL Inactive AMOXICILLIN 500 MG TABS 2 tabs PO bid x 10 d 7 AMOXICILLIN 500 MG TABS 197809 AMOXICILLIN Inactive IMPLANON 68 MG IMPL IMPLANTED IN LEFT ARM IMPLANON 68 MG IMPL ETONOGESTREL Inactive HYDROCODONE-ACETAMINOPHEN 5-325 MG TABS 1 PO tid PRN pain 5 HYDROCODONE-ACETAMINOPHEN 5-325 MG TABS 537453 HYDROCODONE-ACETAMIN OPHEN Inactive BACTRIM DS 800-160 MG TAB 1 tab by mouth twice daily 2 BACTRIM DS 800-160 MG TAB [id number] TRIMETHOPRIM-SULFAMETHOXAZOLE Inac tive CEPHALEXIN 500 MG CAPS 1 PO bid x 7 days CEPHALEXIN 500 MG CAPS 051062 CEPHALEXIN Inactive HYDROCODONE-ACETAMINOPHEN 5-325 MG TABS 1 tab by mouth every 6 hours as needed HYDROCODONE-ACETAMINOPHEN 5-325 MG TABS 583808 HYDROCODONE-ACETAMINOPHEN Inactive PROMETHAZINE-CODEINE 6.25-10 MG/5ML SYRP 1 tsp every 6 hrs prn c ough PROMETHAZINE-CODEINE 6.25-10 MG/5ML SYRP 233637 PROMETH AZINE-CODEINE Inactive IBUPROFEN 800 MG TAB 1 pill three times daily as needed for pain IBUPROFEN 800 MG TAB IBUPROFEN Inactive KEFLEX 500 MG CAP 1 tab po tid KEFLEX 500 MG CAP 643308 CEPHALEXIN Inactive HYDROCODONE-ACETAMINOPHEN 7.5-325 MG TABS 1 four times a day as needed for pain HYDROCODONE-ACETAMINOPHEN 7.5-325 MG TABS 356527 HYDROCODONE-ACETAMINOPHEN Inactive BACTRIM DS 800-160 MG TABS by mouth twice a day 11/05 BACTRIM DS 800-160 MG TABS 19820910 SULFAMETHOXAZOLE-TRIMETHOPRIM Inactive IBUPROFEN 800 MG TABS 1 tid prn IBUPROFEN 800 MG TABS 781567 IBUPROFEN Inactive ENDOCET 10-325 MG TABS 1 q 6 hr prn ENDOC ET 10-325 MG TABS 7750603 OXYCODONE-ACETAMINOPHEN Inactive HYDROCODONE-ACETAMINOPHEN 7.5-325 MG TABS 1 by mouth e very 6 hours as needed for pain HYDROCODONE-ACETAMINOPHEN 7.5-325 MG TABS 746727 HYDROCODONE-ACETAMINOPHEN Inactive PERCOCET 7.5-325 MG TABS 1 PO q 8 hrs PRN pain PERCOCET 7.5-325 MG TABS 0582439 OXYCODONE-ACETAMINOPHEN Inactive LIDODERM 5 % PTCH One patch to painful area [place] On for 12 hrs, off for 12 hrs. LIDODERM 5 % [facility] 5030627 LIDOCAINE Inactiv e PERCOCET 7.5-325 MG TABS 1 PO tid PRN pain PERCOCET 7.5- 325 MG TABS 6931719 OXYCODONE-ACETAMINOPHEN Inactive MOBIC 15 MG TABS 1 tab daily MOBIC 15 MG TABS 15 2695 MELOXICAM Inactive CYCLOBENZAPRINE HCL 10 MG TABS 1/2 - 1 tab PO tid PRN back p ain, muscle spasm CYCLOBENZAPRINE HCL 10 MG TABS 887897 CYCLOBENZA JOSEPH HCL Inactive LORATADINE 10 MG TABS 1 tablet by mouth daily LORATADINE 10 MG TABS 699023 LORATADINE Inactive HYDROCODONE-ACETAMINOPHEN 10-325 MG TABS 1 by mouth ev chaka 8 hours as needed for pain HYDROCODONE-ACETAMINOPHEN 10-325 MG TABS 686229 HYDROCODONE-ACETAMINOPHEN Inactive LC-5 LIDOCAINE 5 % CREA apply 1 time daily to affected area 2013 LC-5 LIDOCAINE 5 % CREA 7130880 LIDOCAINE (ANORECTAL) In active PERCOCET 5-325 MG TAB 1 every 6 hours as needed PERCOCET 5-325 MG TAB 0545077 OXYCODONE-ACETAMINOPHEN Inactive KEFLEX 500 MG CAP 1 po qid KEFLEX 500 MG CAP 30 9114 CEPHALEXIN Inactive PROAIR HFA 108 (90 BASE) MCG/ACT AERS 2 puff q 4-6 hrs PRN 01/24 PROAIR HFA 108 (90 BASE) MCG/ACT AERS ALBUTEROL SULFATE Inactive PERCOCET 10-325 MG ORAL TABS 1 every 4 hours as needed PERCOCET 10-325 MG ORAL TABS 2019672 OXYCODONE-ACETAMINOPHEN Inactiv e EMLA 2.5-2.5 % EXT CREA apply to skin lesion q 6 hours, prn 2014 EMLA 2.5-2.5 % EXT CREA 547205 LIDOCAINE-PRILOCAINE Siri ctive PERCOCET 10-325 MG TABS 1 tab by mouth every 6 hours , use sparingly for severe pain PERCOCET 10-325 MG TABS 8874884 OXYCODONE-ACETAMINOPHEN Inactive GLUCOPHAGE 500 MG ORAL TABS one by mouth 3 times a day GLUCOPHAGE 500 MG ORAL TABS 983104 METFORMIN HCL Inactive HYDROCODONE-ACETAMINOPHEN 5-325 MG TABS 1 po q6hr PRN pain 06/30 HYDROCODONE-ACETAMINOPHEN 5-325 MG TABS 940371 HYDROCOD ONE-ACETAMINOPHEN Inactive PERCOCET 5-325 MG TAB 1 tab po q 6 -8 hours, prn for severe pain PERCOCET 5-325 MG TAB 9845901 OXYCODONE-ACETAMINOPHEN In active PERCOCET 5-325 MG ORAL TABS 1 every 6 hours as needed PERCOCET 5-325 MG ORAL TABS 1369381 OXYCODONE-ACETAMINOPHEN Inactive DICLOFENAC SODIUM 50 MG TBEC 1 tablet by mouth four times da tom PRN Pain DICLOFENAC SODIUM 50 MG TBEC 775433 DICLOFENAC S ODIUM Inactive AUGMENTIN 500-125 MG ORAL TABS 1 by mouth twice a day AUGMENTIN 500-125 MG ORAL TABS [id number] AMOXICILLIN-POT CLAVULANATE I nactive HYDROCODONE-ACETAMINOPHEN 5-325 MG TABS 1 po q6hr PRN Pain 03/09 HYDROCODONE-ACETAMINOPHEN 5-325 MG TABS [id number] HYDROCOD ONE-ACETAMINOPHEN Inactive CYCLOBENZAPRINE HCL 10 MG TABS 1 tablet by mouth three times daily as needed for muscle spasm/pain CYCLOBENZAPRINE HCL 10 MG TABS [id number] CYCLOBENZAPRINE HCL Inactive SPRINTEC 28 0.25-35 MG-MCG TABS 1 pill by mouth daily for bi rth control SPRINTEC 28 0.25-35 MG-MCG TABS [id number] NORGESTIMATE-ETH ESTRADIOL Inactive PERCOCET 5-325 MG TAB 1 tab po q 6 hours, prn severe pain PERCOCET 5-325 MG TAB [id number] OXYCODONE-ACETAMINOPHEN Inactive IBUPROFEN 600 MG ORAL TABS 1 by mouth twice a day 2014 IBUPROFEN 600 MG ORAL TABS [id number] IBUPROFEN Inactive CYMBALTA 30 MG CPEP 1 cap by mouth daily CYMBALTA 30 MG CPEP [id number] DULOXETINE HCL Inactive HYDROCODONE-ACETAMINOPHEN 5-325 MG TABS 1 po q6hr PRN Pain 04/09 HYDROCODONE-ACETAMINOPHEN 5-325 MG TABS [id number] HYDROCOD ONE-ACETAMINOPHEN Inactive TRAZODONE HCL 100 MG TAB 0.5 to 1 po qHS PRN Insomnia TRAZODONE HCL 100 MG TAB [id number] TRAZODONE HCL Inactive ALPRAZOLAM 0.5 MG TABS 1 po BID PRN Anxiety ALPRAZOLAM 0.5 MG TABS 718519 ALPRAZOLAM Inactive [id number] 50-325-40 MG ORAL CAPS 1-2 po TID [place] N Headache [id number] 50-325-40 MG ORAL CAPS 2 [id number] [id number] Inactive HYDROCODONE-ACETAMINOPHEN 5-325 MG TABS 1 po TID PRN Pain 9 HYDROCODONE-ACETAMINOPHEN 5-325 MG TABS 393204 HYDROCODONE-ACETAMIN OPHEN Inactive PERCOCET 10-325 MG TABS 1 tablet every 8 hours as needed for antonia n PERCOCET 10-325 MG TABS [id number] OXYCODONE-ACETAMINOPHEN Inactive ONDANSETRON 4 MG TBDP 1 q4h PRN nausea ON DANSETRON 4 MG TBDP [id number] ONDANSETRON Inactive VIIBRYD 10 & 20 & 40 MG KIT 1 po qd as directed 07/24 VIIBRYD 10 & 20 & 40 MG KIT VILAZODONE HCL Inactive DICLOFENAC SODIUM 50 MG TBEC 1 tablet by mouth four times da tom PRN Pain DICLOFENAC SODIUM 50 MG TBEC [id number] DICLOFENAC S ODIUM Inactive PERCOCET 10-325 MG ORAL TABS one every 6 hours prn pain PERCOCET 10-325 MG ORAL TABS [id number] OXYCODONE-ACETAMINOPHEN Inactiv e PERCOCET 10-325 MG ORAL TABS take 1 tab by mouth q 4hours as needed for pain PERCOCET 10-325 MG ORAL TABS [id number] OXYCODONE-ACETAMINOPHEN Inactive FLONASE ALLERGY RELIEF 50 MCG/ACT NASAL SUSP One spray in each nostril twice a day. FLONASE ALLERGY RELIEF 50 MCG/ACT NASAL S [facility] [id number] FLUTICASONE PROPIONATE Inactive AUGMENTIN 875-125 MG TAB 1 tab by mouth twice daily with food 20 23/05/16 AUGMENTIN 875-125 MG TAB [id number] AMOXICILLIN-POT [place] Inactive HYDROCODONE-ACETAMINOPHEN 5-325 MG TABS 1 tab by mouth every 6 hours as needed for pain HYDROCODONE-ACETAMINOPHEN 5-325 MG TABS 8 30188 HYDROCODONE-ACETAMINOPHEN Inactive PERCOCET 10-325 MG TABS 1 tablet every 8 hours as needed for antonia n PERCOCET 10-325 MG TABS [id number] OXYCODONE-ACETAMINOPHEN Inactive LC-4 LIDOCAINE 4 % EXT CREA apply q 6 hours, prn 08/03 LC-4 LIDOCAINE 4 % EXT CREA 2527846 LIDOCAINE Inactive AMOXICILLIN 875 MG TABS 1 tab by mouth twice daily 201 07/18/07 AMOXICILLIN 875 MG TABS 456738 AMOXICILLIN Inactive KEFLEX 500 MG CAP 1 po tid x 10 days KEFLEX 500 MG CAP 862585 CEPHALEXIN Inactive AMOXICILLIN 875 MG TABS 1 tab by mouth twice daily 201 07/19/27 AMOXICILLIN 875 MG TABS 370167 AMOXICILLIN Inactive AMOXICILLIN 875 MG TABS 1 tab by mouth twice daily 201 08/09/13 AMOXICILLIN 875 MG TABS 629177 AMOXICILLIN Inactive CIPRO 500 MG TAB 1 tablet by mouth twice daily CIPRO 500 MG TAB 588662 CIPROFLOXACIN HCL Inactive BACTRIM DS 800-160 MG TAB 1 tab by mouth twice daily 2 BACTRIM DS 800-160 MG TAB 444600 TRIMETHOPRIM-SULFAMETHOXAZOLE Inac tive LEVAQUIN 500 MG TABS 1 PO q day x 7 days LEVAQUIN 500 MG TABS 115186 LEVOFLOXACIN Inactive CLINDAMYCIN HCL 300 MG CAPS 1 po QID x 7 days CLINDAMYCIN HCL 300 MG CAPS 320747 CLINDAMYCIN HCL Inactive AUGMENTIN 875-125 MG TAB 1 tab by mouth twice daily with food 20 22/05/07 AUGMENTIN 875-125 MG TAB 212348 AMOXICILLIN-POT [place] Inactive DIFLUCAN 150 MG TAB 1 qODay x 2 doses DIFLUCAN 150 MG TAB 183631 FLUCONAZOLE Inactive PREDNISONE 20 MG TAB 2 tabs daily for 3 days, 1 t ab daily for 3 days, 1/2 tab daily for 2 days PREDNISONE 20 MG TAB 269940 PREDNISON E Inactive AUGMENTIN 875-125 MG TAB 1 tab by mouth twice daily with food 20 21/10/13 AUGMENTIN 875-125 MG TAB 743510 AMOXICILLIN-POT [place] Inactive HYDROCODONE-ACETAMINOPHEN 5-325 MG TABS 1 tab by mouth every 6 hours as needed PRN Pain HYDROCODONE-ACETAMINOPHEN 5-325 MG TABS 8 81756 HYDROCODONE-ACETAMINOPHEN Inactive PROMETHAZINE HCL 25 MG TABS 1 four times a day as needed for nausea/vomiting PROMETHAZINE HCL 25 MG TABS 240220 PROMETHAZINE HCL Inactive Advance Directives Directive Description Start Date PERMISSION TO SHARE Immunizations Vaccine Administration Date Value Standard Alf cription Seasonal influenza vaccine, injectable, containing preservative, for > 3 years old (Afluria, FluLaval, Fluzone, Fluvirin, Fluarix, Agriflu(>= 18 yo)) Fluzone (>3 yrs.) [[id number]] Influenza, seasonal, inject able Seasonal influenza vaccine, injectable, preservative free, for > 3 years old (Afluria, FluLaval, Fluzone, Fluvirin, Fluarix, Agriflu(>= 18 yo)) Fluzone preservative free (>3 yrs.) [[id number]] Influenza, seasonal, injectable, preservative free Seasonal influenza vaccine, injectable, containing preservative, for > 3 years old (Afluria, FluLaval, Fluzone, Fluvirin, Fluarix, Agriflu(>= 18 yo)) Fluzone (>3 yrs.) [[id number]] Influenza, seasonal, inject able Seasonal influenza vaccine, injectable, containing preservative, for > 3 years old (Afluria, FluLaval, Fluzone, Fluvirin, Fluarix, Agriflu(>= 18 yo)) Fluzone (>3 yrs.) [[id number]] Influenza, seasonal, inject able dT (Diphtheria and [...] Panel - Chemistry sodium, serum 142 mmol/L [phone]/05/12 potassium, serum 4.8 mmol/L 3.5-5.2 chloride, serum [...] Panel - Chemistry cholesterol, serum 165 mg/dL [phone]/05/12 triglyceride, serum, fasting 524 mg/dL 30-200 HDL cholesterol, serum 24 mg/dL 32-96 cholesterol, serum 181 mg/dL [phone]/09/01 triglyceride, serum, fasting 341 mg/dL 30-200 HDL [...] negative Encounters Code Encounter Date Provider Facility CPT-70667 Level 3 Est. Patient 05:31:41 [facility] Kalpesh goins MD [facility] CPT-83314 Level 3 Est. Patient 11:22:02 [facility] Hira muniz [facility] CPT-64262 Level 3 Est. Patient 21:00:18 [facility] Rajni danielson [facility] CPT-65632 Level 3 Est. Patient 14:15:00 [facility] Kalpesh goins MD [facility] CPT-80752 Level 2 Est. Patient 19:57:52 [facility] Rajni danielson [facility] CPT-25489 Level 3 Est. Patient 16:58:40 [facility] Bj funes MD [facility] CPT-83078 Level 3 Est. Patient 08:51:33 CDT Kalpesh goins MD [facility] CPT-63224 Level 4 Est. Patient 14:14:53 CDT Abdirahman Rios MD [facility] CPT-15524 Level 3 Est. Patient 15:47:40 CDT Kalpesh goins MD [facility] CPT-50447 Level 3 Est. Patient 10:57:26 CDT Abdirahman Rios MD [facility] CPT-85736 Level 3 Est. Patient 14:29:53 CDT Abhinav Galvan MD [facility]-22453 Level 2 Est. Patient 16:33:01 CDT Kalpesh goins MD [facility]-61975 Level 4 Est. Patient 16:44:56 CDT Abdirahman Rios MD [facility]-47939 Level 2 Est. Patient 07:49:32 CDT Kalpesh goins MD [facility] CPT-14465 Level 3 New Patient 15:47:11 [facility] Bj huber MD [facility]-56024 Level 4 Est. Patient 14:37:38 [facility] Abdirahman Rios MD [facility] CPT-36688 Level 2 Est. Patient 13:32:17 [facility] Kalpesh goins MD [facility]-08625 Level 3 Est. Patient 17:32:57 [facility] Edilberto tiwari [facility] CPT-54211 Level 3 Est. Patient 17:22:33 [facility] Edilberto tiwari [facility] CPT-23168 Level 2 Est. Patient 16:57:09 [facility] Kalpesh goins MD [facility]-13647 Level 3 Est. Patient 14:03:08 [facility] Abdirahman Rios MD [facility] CPT-92267 Level 3 Est. Patient 18:12:34 CDT Shola Wright [facility] CPT-55937 Level 3 Est. Patient 19:34:46 CDT Shola Wright [facility] CPT-06604 Level 3 Est. Patient 14:19:37 CDT Abdirahman Rios MD [facility]-39815 Level 3 Est. Patient 14:11:58 CDT Kalpesh goins MD [facility] CPT-45097 Level 3 Est. Patient 16:50:00 CDT Michelle BRADFORDP [facility] CPT-94672 Level 3 Est. Patient 17:11:32 [facility] Brandie bates MD PhD [facility] CPT-55256 Level 3 Est. Patient 16:31:47 [facility] Shola Wright [facility] CPT-12415 Level 3 Est. Patient 17:51:10 [facility] Abhinav Galvan MD [facility] CPT-28549 Level 4 Est. Patient 12:54:56 [facility] Kalpesh goins MD [facility]-14194 Level 4 Est. Patient 12:53:56 [facility] Kalpesh goins MD [facility] CPT-04769 Level 3 Est. Patient 17:56:58 CDT Shola Wright [facility] CPT-19305 Level 3 Est. Patient 14:26:20 CDT Janak butcher [facility] CPT-59148 Level 3 Est. Patient 09:38:41 CDT Shola Wright [facility] CPT-89093 Level 3 Est. Patient 14:45:26 CDT Edilberto tiwari [facility] CPT-70713 Level 3 Est. Patient 10:51:33 CDT [facility] CPT-26448 Level 3 Est. Patient 11:57:55 [facility] Shola Wright [facility] CPT-41900 Level 3 Est. Patient 09:53:33 [facility] Edilberto tiwari [facility] CPT-47468 Level 3 Est. Patient 14:42:54 [facility] Abhinav Galvan MD [facility] CPT-81808 Level 3 Est. Patient 15:10:02 CDT Janak MCGILL [facility] CPT-84397 Level 3 Est. Patient 15:20:20 CDT Theo dennis MD [facility] CPT-50460 Level 2 Est. Patient 14:08:57 CDT Kalpesh goins MD [facility] CPT-82069 Level 3 Est. Patient 13:56:19 CDT Abdirahman Rios MD [facility] CPT-31831 Level 3 Est. Patient 13:59:37 CDT Abdirahman Rios MD [facility] CPT-71907 Level 2 Est. Patient 14:44:59 CDT Kalpesh goins MD [facility] CPT-73103 Level 3 Est. Patient 06:06:23 CDT Edilberto tiwari DO [facility] CPT-22734 Level 3 Est. Patient 15:23:54 CDT Abdirahman Rios MD [facility] CPT-40439 Level 3 Est. Patient 15:43:49 CDT Abdirahman Rios MD [facility] CPT-85373 Level 3 Est. Patient 12:46:47 [facility] Abdirahman Rios MD [facility] CPT-02413 Level 3 Est. Patient 08:13:35 [facility] Abdirahman Rios MD [facility] CPT-23414 Level 2 Est. Patient 09:36:42 [facility] Abdirahman Rios MD [facility] CPT-00558 Level 3 Est. Patient 10:56:43 CDT Abdirahman Rios MD [facility] CPT-18272 Level 3 Est. Patient 18:24:52 CDT Abdirahman Rios MD [facility] CPT-55653 Level 3 Est. Patient 13:27:22 CDT Abdirahman Rios MD [facility] Procedures Code Procedure Name Date Entry Date Standard Desc ription CPT-99648 Postop F/U Visit 14:08:43 [facility] CPT-28865 Postop F/U Visit 15:18:16 [facility] CPT-36194 Postop F/U Visit 15:03:49 [facility] CPT-45179 Postop F/U Visit 14:45:23 [facility] CPT-00109 Postop F/U Visit 14:11:03 [facility] CPT-36591 Postop F/U Visit 18:21:21 [facility] CPT-89328 Postop F/U Visit 15:57:12 [facility] CPT-75966 Bladder Instillation 16:58:41 [facility] 6 CPT-15794 Fluzone Quadrivalent Intramuscular Suspe nsion 0.5 ML 15:20:56 [facility] CPT-89923 Immunization Single Admin 15:20:56 [facility] 2014 CPT-49077 Excis pilonidal cyst simple 08:51:34 CDT 20 22/04/20 CPT-13573 Venipuncture Draw Fee 14:27:29 CDT CPT-41005 Postop F/U Visit 15:27:43 CDT CPT-40881 Postop F/U Visit 14:40:59 CDT CPT-47921 Postop F/U Visit 15:02:46 CDT CPT-31949 Postop F/U Visit 11:29:00 [facility] CPT-J0696 Rocephin 1000 mg (Ceftriaxone) 17:22:33 [facility] CPT-23377 Postop F/U Visit 18:41:07 [facility] CPT-65524 Postop F/U Visit 08:19:08 [facility] CPT-68451 Immunization Single Admin 16:41:53 CDT 2013 CPT-84103 Fluzone Quadrivalent Intramuscular Suspe nsion 0.5 ML 16:41:53 CDT CPT-OV Office Visit 16:39:18 CDT CPT-OV Office Visit 16:16:36 CDT CPT-OV Office Visit 15:34:48 CDT CPT-54195 Postop F/U Visit 14:50:12 CDT CPT-32553 Postop F/U Visit 14:41:10 CDT CPT-96060 Venipuncture Draw Fee 11:38:04 [facility] CPT-98552 Postop F/U Visit 19:02:59 [facility] CPT-85758 Postop F/U Visit 12:04:54 [facility] CPT-73246 Administration single or combination vac cine inc oral 15:56:43 CDT CPT-40638 Influenza split virus > age 3 15:56:43 CDT CPT-89232 Hand comp min 3V 14:25:19 CDT CPT-96261 Postop F/U Visit 21:40:51 CDT CPT-70987 Postop F/U Visit 10:58:43 CDT CPT-15959 Administration single or combination vac cine inc oral 12:33:54 [facility] CPT-95049 Influenza Preservative Free split virus >age 3 12:33:54 [facility] CPT-37479 Administration single or combination vac cine inc oral 09:30:51 CDT CPT-01070 Influenza split virus > age 3 09:30:51 CDT CPT-27326 Postop F/U Visit 15:14:53 CDT CPT-80136 Postop F/U Visit 13:50:14 CDT CPT-95172 Postop F/U Visit 13:34:52 CDT CPT-OV Office Visit 16:55:03 CDT CPT-23543 [place] of cervix w bx ECC 13:32:50 CDT 10/19 CPT-J1885 Toradol 60 mg (Ketorolac) 15:31:59 CDT 2011 CPT-J1885 Toradol 60 mg (Ketorolac) 15:23:54 CDT 2011 CPT-28350 Visit 11:34:37 [facility] CPT-00254 Visit 10:52:39 [facility] CPT-15580 Visit 10:12:02 [facility] CPT-98255 Visit 11:22:43 [facility] CPT-35833 Visit 11:24:12 [facility] CPT-01500 Visit 10:47:05 [facility] CPT-OV Office Visit 10:26:16 [facility] CPT-OV Office Visit 15:34:31 [facility] CPT-99663 Visit 10:42:08 [facility] CPT-87766 Visit 10:52:45 [facility] CPT-000 Give Appropriate Flu Vaccine 16:56:41 CDT 2 CPT-55694 Administration single or combination vac cine inc oral 10:33:21 CDT CPT-60939 Influenza split virus > age 3 10:33:21 CDT CPT-00215 Visit 13:23:09 CDT CPT-28949 Visit 18:24:52 CDT CPT-06815 Sono OB comp > 14 weeks 12:07:49 CDT 04/07
--- OUTSIDE RECORDS SUMMARY | 2020-01-18 16:14 | XMS REPORT | Clinical Summary ---
Author Author Admin, Jeri Rashid Organization [facility] Address Unknown Phone Unavailable Allergies, [...] unspecified SINUSITIS, ACUTE 461.9 Active Rajni Alcazar [employer] Acute sinusitis, unspecified BACK PAIN 724.5 Resolved [...] apply q 6 hours, prn 08/03 LIDOCAINE [id number] No Longer Active Kalpesh Dong MD Active PERCOCET 10-325 MG TABS 1 tablet every 8 hours as needed for antonia n OXYCODONE-ACETAMINOPHEN 55665857318 No Longer Active Kalpesh Dong MD Active HYDROCODONE-ACETAMINOPHEN 5-325 MG TABS 1 tab by mouth every 6 hours as needed for pain HYDROCODONE-ACETAMINOPHEN 28593154561 No Longer Active Kalpesh Dong MD Active PERCOCET 10-325 MG ORAL TABS 1 every 4 hous as needed OXYCODONE-ACETAMINOPHEN 03366983769 Active Abdirahman Rios MD Active GLYDO 2 % EXT GEL apply to painful areas as needed LIDOCAINE HCL 00731398294 Active Kalpesh Dong MD Active LC-4 LIDOCAINE 4 % EXT CREA apply to painful area every 12 h ours or as needed LIDOCAINE 71476002952 Active Kalpesh Dong MD Active AUGMENTIN 875-125 MG TAB 1 tab by mouth twice daily with food 23/05/16 AMOXICILLIN-POT CLAVULANATE 54357641391 No Longer Active Lizeth hi Yokum [employer] 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 FLUTICASONE PROPIONATE 02863995868 No Longer Ac tive Rajni Yokum [employer] Active PERCOCET 10-325 MG ORAL TABS take 1 tab by mouth q 4hours as needed for pain OXYCODONE-ACETAMINOPHEN 39874992674 No Longer Active Arjni Yokum [employer] Active PERCOCET 10-325 MG ORAL TABS one every 6 hours prn pain OXYCODONE-ACETAMINOPHEN 52223386306 No Longer Active Rajni Yokum [employer] Active IBUPROFEN 800 MG TABS 1 tab po tid, with food I BUPROFEN 94954592534 Active Jillina Frazell [employer] Active DICLOFENAC SODIUM 50 MG TBEC 1 tablet by mouth four times da tom PRN Pain DICLOFENAC SODIUM 36661611401 No Longer Active Rajni Yokum [employer] Active VIIBRYD 10 & 20 & 40 MG KIT 1 po qd as directed 07/24 VILAZODONE HCL 46343691030 No Longer Active Rajni Yokum [employer] Active ONDANSETRON 4 MG TBDP 1 q4h PRN nausea ONDANSET KELBY 36324350224 No Longer Active Rajni Yoyanaum [employer] Active PERCOCET 10-325 MG TABS 1 tablet every 8 hours as needed for antonia n OXYCODONE-ACETAMINOPHEN 40442870459 No Longer Active Rajni cox [employer] Active HYDROCODONE-ACETAMINOPHEN 5-325 MG TABS 1 po TID PRN Pain 9 HYDROCODONE-ACETAMINOPHEN 50417598545 No Longer Active Abdirahman Rios MD Active [id number] 50-325-40 MG ORAL CAPS 1-2 po TID [place] N Headache [id number] 30877210207 No Longer Act krishna Kalpesh Dong MD Active ALPRAZOLAM 0.5 MG TABS 1 po BID PRN Anxiety ALP RAZOLAM 69994571906 No Longer Active Kalpesh Dong MD Active TRAZODONE HCL 100 MG TAB 0.5 to 1 po qHS PRN Insomnia TRAZODONE HCL 41311980369 No Longer Active Kalpesh Dong MD Activ e HYDROCODONE-ACETAMINOPHEN 5-325 MG TABS 1 po q6hr PRN Pain 04/09 HYDROCODONE-ACETAMINOPHEN 52290507503 No Longer Active Kalpesh Dong MD Active CYMBALTA 30 MG CPEP 1 cap by mouth daily DULOXE CLEO HCL 47248865912 No Longer Active Abdirahman Rios MD Active IBUPROFEN 600 MG ORAL TABS 1 by mouth twice a day 2014 IBUPROFEN 10789940753 No Longer Active Abdirahman Rios MD Activ e PERCOCET 5-325 MG TAB 1 tab po q 6 hours, prn severe pain 1 OXYCODONE-ACETAMINOPHEN 94688134661 No Longer Active Abdirahman Rios MD Active SPRINTEC 28 0.25-35 MG-MCG TABS 1 pill by mouth daily for bi rth control NORGESTIMATE-ETH ESTRADIOL 38679318317 No Longer Acti ve Matthewllina Joyzell [employer] Active CYCLOBENZAPRINE HCL 10 MG TABS 1 tablet by mouth three times daily as needed for muscle spasm/pain CYCLOBENZAPRINE HCL 27157576875 No Longer Active Jillina Frazell [employer] Active HYDROCODONE-ACETAMINOPHEN 5-325 MG TABS 1 po q6hr PRN Pain 03/09 HYDROCODONE-ACETAMINOPHEN 43118397757 No Longer Active Matthewllina Joyzel l [employer] Active AUGMENTIN 500-125 MG ORAL TABS 1 by mouth twice a day AMOXICILLIN-POT CLAVULANATE 97876942800 No Longer Active Jillina Frazell [employer] Active DICLOFENAC SODIUM 50 MG TBEC 1 tablet by mouth four times da tom PRN Pain DICLOFENAC SODIUM 14847145782 No Longer Active Jillin a Karmenl [employer] Active PROMETHAZINE HCL 25 MG TABS 1 four times a day as needed for nausea/vomiting PROMETHAZINE HCL 78101772341 No Longer Active Abdirahman Rios MD Active HYDROCODONE-ACETAMINOPHEN 5-325 MG TABS 1 tab by mouth every 6 hours as needed PRN Pain HYDROCODONE-ACETAMINOPHEN 87393452635 No Longer Active Abdirahman Rios MD Active GEMFIBROZIL 600 MG TABS 1 po BID GEMFIBROZIL 48810040 005 Active Abdirahman Rios MD Active PERCOCET 5-325 MG ORAL TABS 1 every 6 hours as needed OXYCODONE-ACETAMINOPHEN 14679822622 No Longer Active Abdirahman Rios MD Active PERCOCET 5-325 MG TAB 1 tab po q 6 -8 hours, prn for severe pain OXYCODONE-ACETAMINOPHEN 51265635654 No Longer Active Abdirahman Rios MD Active HYDROCODONE-ACETAMINOPHEN 5-325 MG TABS 1 po q6hr PRN pain 06/30 HYDROCODONE-ACETAMINOPHEN 43447093757 No Longer Active Hira roman [employer] Active GLUCOPHAGE 500 MG ORAL TABS one by mouth 3 times a day METFORMIN HCL 48982483634 No Longer Active Karenina Shanti [employer] Ac tive PERCOCET 10-325 MG TABS 1 tab by mouth every 6 hours , use sparingly for severe pain OXYCODONE-ACETAMINOPHEN 22354911868 No Longer A ctive Abdirahman Rios MD Active EMLA 2.5-2.5 % EXT CREA apply to skin lesion q 6 hours, prn 2014 LIDOCAINE-PRILOCAINE 44405303142 No Longer Active Abdirahman Rios MD Active PERCOCET 10-325 MG ORAL TABS 1 every 4 hours as needed OXYCODONE-ACETAMINOPHEN 94276934771 No Longer Active Abdirahman Rios MD Active AUGMENTIN 875-125 MG TAB 1 tab by mouth twice daily with food 20 21/10/13 AMOXICILLIN-POT CLAVULANATE 29991668424 No Longer Active Ursula Moser APRN Active PROAIR HFA 108 (90 BASE) MCG/ACT AERS 2 puff q 4-6 hrs PRN 01/24 ALBUTEROL SULFATE 86312460356 No Longer Active Kalpesh Dong MD Active PREDNISONE 20 MG TAB 2 tabs daily for 3 days, 1 t ab daily for 3 days, 1/2 tab daily for 2 days PREDNISONE 59508489966 No Longer Active Abdirahman Rios MD Active KEFLEX 500 MG CAP 1 po qid CEPHALEXIN 656960865 20 No Longer Active Kalpesh Dong MD Active PERCOCET 5-325 MG TAB 1 every 6 hours as needed OXYCODONE-ACETAMINOPHEN 28177532432 No Longer Active Shola MCGILL Active LC-5 LIDOCAINE 5 % CREA apply 1 time daily to affected area 2013 LIDOCAINE (ANORECTAL) 58247354421 No Longer Active Jillina F razell [employer] Active HYDROCODONE-ACETAMINOPHEN 10-325 MG TABS 1 by mouth ev chaka 8 hours as needed for pain HYDROCODONE-ACETAMINOPHEN 74741855522 No Longer Active Jillina Joyzell [employer] Active LORATADINE 10 MG TABS 1 tablet by mouth daily L ORATADINE 85767502526 No Longer Active Jillina Frazell [employer] Active DIFLUCAN 150 MG TAB 1 qODay x 2 doses FLUCONAZO LE 18025340026 No Longer Active Jillina Frazell [employer] Active CYCLOBENZAPRINE HCL 10 MG TABS 1/2 - 1 tab PO tid PRN back p ain, muscle spasm CYCLOBENZAPRINE HCL 94678504194 No Longer Active Karen siri Frazell [employer] Active AUGMENTIN 875-125 MG TAB 1 tab by mouth twice daily with food 20 22/05/07 AMOXICILLIN-POT CLAVULANATE 53958129362 No Longer Active Loida Rios MD Active MOBIC 15 MG TABS 1 tab daily MELOXICAM 270186138 14 No Longer Active Abdirahman Rios MD Active PERCOCET 7.5-325 MG TABS 1 PO tid PRN pain OXYCODONE-ACETAMINOPHEN 75728594029 No Longer Active Abdirahman Rios MD Active LIDODERM 5 % PTCH One patch to painful area [place]. On for 12 hrs, off for 12 hrs. LIDOCAINE 83826635816 No Longer Active Abdiarhman Rios MD Active PERCOCET 7.5-325 MG TABS 1 PO q 8 hrs PRN pain OXYCODONE-ACETAMINOPHEN 54354179461 No Longer Active Shola MCGILL Active HYDROCODONE-ACETAMINOPHEN 7.5-325 MG TABS 1 by mouth e very 6 hours as needed for pain HYDROCODONE-ACETAMINOPHEN 32354094711 No Longer Active Good Julian MD Active CLINDAMYCIN HCL 300 MG CAPS 1 po QID x 7 days CLINDAMYCIN HCL 46597631064 No Longer Active Abdirahman Rios MD Activ e BACTRIM DS 800-160 MG TABS 1 po BID x 7 days 5 SULFAMETHOXAZOLE-TRIMETHOPRIM 18814097654 No Longer Active Abdirahman Rios MD Active ENDOCET 10-325 MG TABS 1 q 6 hr prn OXYCODONE-ACETAMINOPHEN 26232065255 No Longer Active Abdirahman Rios MD Active IBUPROFEN 800 MG TABS 1 tid prn IBUPROFEN 703540 69942 No Longer Active Abdirahman Rios MD Active BACTRIM DS 800-160 MG TABS by mouth twice a day 11/05 SULFAMETHOXAZOLE-TRIMETHOPRIM 46975749622 No Longer Active Good Julian MD Active HYDROCODONE-ACETAMINOPHEN 7.5-325 MG TABS 1 four times a day as needed for pain HYDROCODONE-ACETAMINOPHEN 69427737320 No Longer Activ e Good Julian MD Active KEFLEX 500 MG CAP 1 tab po tid CEPHALEXIN 347455 40220 No Longer Active Hira Moser APRN Active IBUPROFEN 800 MG TAB 1 pill three times daily as needed for pain IBUPROFEN 38460499238 No Longer Active Kalpesh Dong MD Active PROMETHAZINE-CODEINE 6.25-10 MG/5ML SYRP 1 tsp every 6 hrs prn c ough PROMETHAZINE-CODEINE 36738467225 No Longer Active Kalpesh Carr Active HYDROCODONE-ACETAMINOPHEN 5-325 MG TABS 1 tab by mouth every 6 hours as needed HYDROCODONE-ACETAMINOPHEN 58259688422 No Longer Activ e Shola MCGILL Active CEPHALEXIN 500 MG CAPS 1 PO bid x 7 days CEPHAL EXIN 55785570954 No Longer Active Shola MCGILL Active BACTRIM DS 800-160 MG TAB 1 tab by mouth twice daily 2 TRIMETHOPRIM-SULFAMETHOXAZOLE 87382028932 No Longer Active Kalpesh Dong MD Active HYDROCODONE-ACETAMINOPHEN 5-325 MG TABS 1 PO tid PRN pain 5 HYDROCODONE-ACETAMINOPHEN 18868879543 No Longer Active Abhinav Galvan MD Active IMPLANON 68 MG IMPL IMPLANTED IN LEFT ARM ETONO GESTREL 42903407831 No Longer Active Hira Moser APRN Active AMOXICILLIN 500 MG TABS 2 tabs PO bid x 10 d AM OXICILLIN 11113151147 No Longer Active Kalpesh Dong MD Active LEVAQUIN 500 MG TABS 1 PO q day x 7 days LEVOFL OXACIN 25946926619 No Longer Active Shola MCGILL Active AMITRIPTYLINE HCL 25 MG TAB 1 tab by mouth daily 60 minutes before bedtime AMITRIPTYLINE HCL 50387535196 No Longer Active Shola MCGILL Active LORTAB 5 5-500 MG TABS 1/2 to 1 tablet by mouth go ry 6 hours as needed for pain HYDROCODONE-ACETAMINOPHEN 49835890877 No Longer Active Shola MCGILL Active CEPHALEXIN 500 MG TABS Take one by mouth four times daily, morning, noon, early evening and bedtime. CEPHALEXIN 66182704977 No Long er Active Hira Moser APRN Active TYLENOL/CODEINE #3 300-30 MG TAB 1-2 po q6hr PRN Pain ACETAMINOPHEN-CODEINE 48540391133 No Longer Active Edilberto Marino DO Active PRISTIQ 50 MG [id number] 1 po qd DESVENLAFAXI NE SUCCINATE 62351709857 No Longer Active Edilberto Marino DO Active PENICILLIN V POTASSIUM 500 MG TAB 1 four times a day 2 PENICILLIN V POTASSIUM 90288944900 No Longer Active Edilberto Marino DO Active DOXYCYCLINE HYCLATE 100 MG CAPS Take one (1) tablet by mouth twice a day DOXYCYCLINE HYCLATE 51298413625 No Longer Active Ronnie Galvan MD Active HYDROCODONE-ACETAMINOPHEN 5-325 MG TABS 1 po q 6hr PRN Pain 2011 HYDROCODONE-ACETAMINOPHEN 43317343266 No Longer Active Rosari joan Perez RN Active BACTRIM DS 800-160 MG TAB 1 tab by mouth twice daily 2 TRIMETHOPRIM-SULFAMETHOXAZOLE 86685373714 No Longer Active Kalpesh Dong MD Active LORTAB 5 5-500 MG TABS 1/2 to 1 tablet by mouth go ry 4 hours as needed for pain HYDROCODONE-ACETAMINOPHEN 50755564754 No Longer Active Kalpesh Dong MD Active GENERESS FE 0.8-25 MG-MCG CHEW Take one by mouth daily NORETHIN-ETH ESTRADIOL-FE 25895944410 No Longer Active Kalpesh Dong MD Active HYDROCODONE-ACETAMINOPHEN 7.5-500 MG TABS 1-2 every 4 hours as needed HYDROCODONE-ACETAMINOPHEN 79011045338 No Longer Activ e Kalpesh Dong MD Active FERROUS SULFATE 325 (65 FE) MG TABS 1 tablet by mouth twice yung y FERROUS SULFATE 18768106184 No Longer Active Kalpesh Dong MD Active IBUPROFEN 600 MG TAB 1 po q6-8hr PRN IBUPROFEN 73109623780 No Longer Active Kalpesh Dong MD Active SPIRONOLACTONE 25 MG TAB 1 tablet by mouth daily 01/22 SPIRONOLACTONE 36895421609 No Longer Active Kalpesh Dong MD Acti ve HYDROCODONE-ACETAMINOPHEN 7.5-325 MG TABS 1 po QID PRN Pain 2011 HYDROCODONE-ACETAMINOPHEN 27863750032 No Longer Active Kalpesh Dong MD Active CLINDAMYCIN HCL 300 MG CAPS 1 po q6hr x 7 days CLINDAMYCIN HCL 74810429682 No Longer Active Edilberto Marino DO Active PREDNISONE 20 MG TAB 2 tabs daily for 4 days, 1 t ab daily for 4 days, 1/2 tab daily for 4 days PREDNISONE 97002489653 No Longer Active Edilberto Marino DO Active PERCOCET 5-325 MG TABS 1 tablet by mouth every 6 hours as ne eded for pain OXYCODONE-ACETAMINOPHEN 26288958938 No Longer Active Abdirahman Rios MD Active VITAMINS TABS Take one by mouth daily MV & MIN W/FE-FA TABS 32952988814 No Longer Active Abdirahman Rios MD Active LUIS 3-0.02 MG TABS 1 tablet by mouth daily as directed DROSPIRENONE-ETHINYL ESTRADIOL 66834278958 No Longer Active Abdirahman Rios MD Active LORATADINE 10 MG TABS 1 tablet by mouth daily L ORATADINE 98193292794 No Longer Active Kalpesh Dong MD Active HYDROCODONE-ACETAMINOPHEN 5-325 MG TABS 1 po q 6hr PRN Pain 2010 HYDROCODONE-ACETAMINOPHEN 88105916088 No Longer Active Edilberto Marino DO Active BACTRIM DS 800-160 MG TAB 1 tab by mouth twice daily 2 TRIMETHOPRIM-SULFAMETHOXAZOLE 78216560957 No Longer Active Abdirahman Rios MD Active 28-0.8 MG TABS Take one by mouth daily 09/20 VIT-FE FUMARATE-FA 43942031349 No Longer Active Abdirahman Rios MD Active CIPRO 500 MG TAB 1 tablet by mouth twice daily CIPROFLOXACIN HCL 38129302472 No Longer Active Abdirahman Rios MD Active BENADRYL 25 MG CAP 1 po q8hr PRN Congestion DIPHENHYDRAMINE HCL 19327721210 No Longer Active Abdirahman Rios MD Active ZOLOFT 50 MG TAB 1 po qd SERTRALINE HCL 058558 50905 No Longer Active Abdirahman Rios MD Active AMOXICILLIN 875 MG TABS 1 tab by mouth twice daily 201 08/09/13 AMOXICILLIN 58688157057 No Longer Active Abdirahman Rios MD Activ e AMOXICILLIN 875 MG TABS 1 tab by mouth twice daily 201 07/19/27 AMOXICILLIN 25318610917 No Longer Active Abdirahman Rios MD Activ e BACTRIM DS 800-160 MG TAB 2 tab by mouth twice daily 2 TRIMETHOPRIM-SULFAMETHOXAZOLE 92926303773 No Longer Active Abdirahman Rios MD Active KEFLEX 500 MG CAP 1 po tid x 10 days CEPHALEXIN 33530978415 No Longer Active Abdirahman Rios MD Active AMOXICILLIN 875 MG TABS 1 tab by mouth twice daily 201 07/18/07 AMOXICILLIN 64374860535 No Longer Active Abdirahman Rios MD Activ e BACTRIM DS 800-160 MG TAB 2 tab by mouth twice daily 2 BACTRIM DS 800-160 MG TAB 177988 TRIMETHOPRIM-SULFAMETHOXAZOLE Inactive ZOLOFT 50 MG TAB 1 po qd ZOLOFT 50 MG TAB 3129 41 SERTRALINE HCL Inactive BENADRYL 25 MG CAP 1 po q8hr PRN Congestion BENADRYL 25 MG CAP [id number] DIPHENHYDRAMINE HCL Inactive 28-0.8 MG TABS Take one by mouth daily 09/20 28-0.8 MG TABS VIT-FE FUMARATE-FA Inactive HYDROCODONE-ACETAMINOPHEN 5-325 MG TABS 1 po q 6hr PRN Pain 2010 HYDROCODONE-ACETAMINOPHEN 5-325 MG TABS 004279 HYDROCODONE-ACETAMINOPHEN Inactive LORATADINE 10 MG TABS 1 tablet by mouth daily LORATADINE 10 MG TABS 968360 LORATADINE Inactive LUIS 3-0.02 MG TABS 1 tablet by mouth daily as directed LUIS 3-0.02 MG TABS 195792 DROSPIRENONE-ETHINYL ESTRADIOL Inactive VITAMINS TABS Take one by mouth daily VITAMINS TABS MV & MIN W/FE-FA TABS Inactive PERCOCET 5-325 MG TABS 1 tablet by mouth every 6 hours as ne eded for pain PERCOCET 5-325 MG TABS 6210023 OXYCODONE-ACETAMIN OPHEN Inactive PREDNISONE 20 MG TAB 2 tabs daily for 4 days, 1 t ab daily for 4 days, 1/2 tab daily for 4 days PREDNISONE 20 MG TAB 737687 PREDNISON E Inactive CLINDAMYCIN HCL 300 MG CAPS 1 po q6hr x 7 days CLINDAMYCIN HCL 300 MG CAPS 476156 CLINDAMYCIN HCL Inactive HYDROCODONE-ACETAMINOPHEN 7.5-325 MG TABS 1 po QID PRN Pain 2011 HYDROCODONE-ACETAMINOPHEN 7.5-325 MG TABS 507666 HYDROCODONE-ACETAMINOPHEN Inactive SPIRONOLACTONE 25 MG TAB 1 tablet by mouth daily 01/22 SPIRONOLACTONE 25 MG TAB 807269 SPIRONOLACTONE Inactive IBUPROFEN 600 MG TAB 1 po q6-8hr PRN IBUPROFEN 600 MG TAB 502812 IBUPROFEN Inactive FERROUS SULFATE 325 (65 FE) MG TABS 1 tablet by mouth twice yung y FERROUS SULFATE 325 (65 FE) MG TABS 340241 FERROUS SULF ATE Inactive HYDROCODONE-ACETAMINOPHEN 7.5-500 MG TABS 1-2 every 4 hours as needed HYDROCODONE-ACETAMINOPHEN 7.5-500 MG TABS HYDROCODONE-ACETAMINOPHEN Inactive GENERESS FE 0.8-25 MG-MCG CHEW Take one by mouth daily GENERESS FE 0.8-25 MG-MCG CHEW 2302665 NORETHIN-ETH ESTRADIOL-FE Inactive LORTAB 5 5-500 MG TABS 1/2 to 1 tablet by mouth go ry 4 hours as needed for pain LORTAB 5 5-500 MG TABS HYDROCODONE-A CETAMINOPHEN Inactive BACTRIM DS 800-160 MG TAB 1 tab by mouth twice daily 2 BACTRIM DS 800-160 MG TAB 731021 TRIMETHOPRIM-SULFAMETHOXAZOLE Inac tive HYDROCODONE-ACETAMINOPHEN 5-325 MG TABS 1 po q 6hr PRN Pain 2011 HYDROCODONE-ACETAMINOPHEN 5-325 MG TABS 720600 HYDROCODONE-ACETAMINOPHEN Inactive DOXYCYCLINE HYCLATE 100 MG CAPS Take one (1) tablet by mouth twice a day DOXYCYCLINE HYCLATE 100 MG CAPS [id number] DOXYCYCLINE HYCLATE Inactive PENICILLIN V POTASSIUM 500 MG TAB 1 four times a day 2 PENICILLIN V POTASSIUM 500 MG TAB 790456 PENICILLIN V POTASSIUM Siri ctive PRISTIQ 50 MG [id number] 1 po qd PRISTIQ 50 MG [id number] DESVENLAFAXINE SUCCINATE Inactive TYLENOL/CODEINE #3 300-30 MG TAB 1-2 po q6hr PRN Pain TYLENOL/CODEINE #3 300-30 MG TAB 304981 ACETAMINOPHEN-CODEINE Inact krishna CEPHALEXIN 500 MG TABS Take one by mouth four times daily, morning, noon, early evening and bedtime. CEPHALEXIN 500 MG TABS 681996 CEPHALEXIN Inactive LORTAB 5 5-500 MG TABS 1/2 to 1 tablet by mouth go ry 6 hours as needed for pain LORTAB 5 5-500 MG TABS HYDROCODONE-A CETAMINOPHEN Inactive AMITRIPTYLINE HCL 25 MG TAB 1 tab by mouth daily 60 minutes before bedtime AMITRIPTYLINE HCL 25 MG TAB 507285 AMITRIPTYLINE HCL Inactive AMOXICILLIN 500 MG TABS 2 tabs PO bid x 10 d 7 AMOXICILLIN 500 MG TABS 056479 AMOXICILLIN Inactive IMPLANON 68 MG IMPL IMPLANTED IN LEFT ARM IMPLANON 68 MG IMPL ETONOGESTREL Inactive HYDROCODONE-ACETAMINOPHEN 5-325 MG TABS 1 PO tid PRN pain 5 HYDROCODONE-ACETAMINOPHEN 5-325 MG TABS 684100 HYDROCODONE-ACETAMIN OPHEN Inactive BACTRIM DS 800-160 MG TAB 1 tab by mouth twice daily 2 BACTRIM DS 800-160 MG TAB 123930 TRIMETHOPRIM-SULFAMETHOXAZOLE Inac tive CEPHALEXIN 500 MG CAPS 1 PO bid x 7 days CEPHALEXIN 500 MG CAPS 426568 CEPHALEXIN Inactive HYDROCODONE-ACETAMINOPHEN 5-325 MG TABS 1 tab by mouth every 6 hours as needed HYDROCODONE-ACETAMINOPHEN 5-325 MG TABS 566189 HYDROCODONE-ACETAMINOPHEN Inactive PROMETHAZINE-CODEINE 6.25-10 MG/5ML SYRP 1 tsp every 6 hrs prn c ough PROMETHAZINE-CODEINE 6.25-10 MG/5ML SYRP 584296 PROMETH AZINE-CODEINE Inactive IBUPROFEN 800 MG TAB 1 pill three times daily as needed for pain IBUPROFEN 800 MG TAB 897386 IBUPROFEN Inactive KEFLEX 500 MG CAP 1 tab po tid KEFLEX 500 MG CAP 888960 CEPHALEXIN Inactive HYDROCODONE-ACETAMINOPHEN 7.5-325 MG TABS 1 four times a day as needed for pain HYDROCODONE-ACETAMINOPHEN 7.5-325 MG TABS 828925 HYDROCODONE-ACETAMINOPHEN Inactive BACTRIM DS 800-160 MG TABS by mouth twice a day 11/05 BACTRIM DS 800-160 MG TABS 148944 SULFAMETHOXAZOLE-TRIMETHOPRIM Inactive IBUPROFEN 800 MG TABS 1 tid prn IBUPROFEN 800 MG TABS 372442 IBUPROFEN Inactive ENDOCET 10-325 MG TABS 1 q 6 hr prn ENDOC ET 10-325 MG TABS 4578786 OXYCODONE-ACETAMINOPHEN Inactive HYDROCODONE-ACETAMINOPHEN 7.5-325 MG TABS 1 by mouth e very 6 hours as needed for pain HYDROCODONE-ACETAMINOPHEN 7.5-325 MG TABS 942154 HYDROCODONE-ACETAMINOPHEN Inactive PERCOCET 7.5-325 MG TABS 1 PO q 8 hrs PRN pain PERCOCET 7.5-325 MG TABS 6880240 OXYCODONE-ACETAMINOPHEN Inactive LIDODERM 5 % PTCH One patch to painful area [place] On for 12 hrs, off for 12 hrs. LIDODERM 5 % [facility] 8287438 LIDOCAINE Inactiv e PERCOCET 7.5-325 MG TABS 1 PO tid PRN pain PERCOCET 7.5- 325 MG TABS 5430041 OXYCODONE-ACETAMINOPHEN Inactive MOBIC 15 MG TABS 1 tab daily MOBIC 15 MG TABS 15 2695 MELOXICAM Inactive CYCLOBENZAPRINE HCL 10 MG TABS 1/2 - 1 tab PO tid PRN back p ain, muscle spasm CYCLOBENZAPRINE HCL 10 MG TABS 981332 CYCLOBENZA JOSEPH HCL Inactive LORATADINE 10 MG TABS 1 tablet by mouth daily LORATADINE 10 MG TABS 054166 LORATADINE Inactive HYDROCODONE-ACETAMINOPHEN 10-325 MG TABS 1 by mouth ev chaka 8 hours as needed for pain HYDROCODONE-ACETAMINOPHEN 10-325 MG TABS 191148 HYDROCODONE-ACETAMINOPHEN Inactive LC-5 LIDOCAINE 5 % CREA apply 1 time daily to affected area 2013 LC-5 LIDOCAINE 5 % CREA [id number] LIDOCAINE (ANORECTAL) In active PERCOCET 5-325 MG TAB 1 every 6 hours as needed PERCOCET 5-325 MG TAB 2533021 OXYCODONE-ACETAMINOPHEN Inactive KEFLEX 500 MG CAP 1 po qid KEFLEX 500 MG CAP 30 9114 CEPHALEXIN Inactive PROAIR HFA 108 (90 BASE) MCG/ACT AERS 2 puff q 4-6 hrs PRN 01/24 PROAIR HFA 108 (90 BASE) MCG/ACT AERS ALBUTEROL SULFATE Inactive PERCOCET 10-325 MG ORAL TABS 1 every 4 hours as needed PERCOCET 10-325 MG ORAL TABS 3082186 OXYCODONE-ACETAMINOPHEN Inactiv e EMLA 2.5-2.5 % EXT CREA apply to skin lesion q 6 hours, prn 2014 EMLA 2.5-2.5 % EXT CREA 911775 LIDOCAINE-PRILOCAINE [place] ctive PERCOCET 10-325 MG TABS 1 tab by mouth every 6 hours , use sparingly for severe pain PERCOCET 10-325 MG TABS 8482884 OXYCODONE-ACETAMINOPHEN Inactive GLUCOPHAGE 500 MG ORAL TABS one by mouth 3 times a day GLUCOPHAGE 500 MG ORAL TABS 237285 METFORMIN HCL Inactive HYDROCODONE-ACETAMINOPHEN 5-325 MG TABS 1 po q6hr PRN pain 06/30 HYDROCODONE-ACETAMINOPHEN 5-325 MG TABS 040972 HYDROCOD ONE-ACETAMINOPHEN Inactive PERCOCET 5-325 MG TAB 1 tab po q 6 -8 hours, prn for severe pain PERCOCET 5-325 MG TAB 8916615 OXYCODONE-ACETAMINOPHEN In active PERCOCET 5-325 MG ORAL TABS 1 every 6 hours as needed PERCOCET 5-325 MG ORAL TABS 6214897 OXYCODONE-ACETAMINOPHEN Inactive DICLOFENAC SODIUM 50 MG TBEC 1 tablet by mouth four times da tom PRN Pain DICLOFENAC SODIUM 50 MG TBEC 991964 DICLOFENAC S ODIUM Inactive AUGMENTIN 500-125 MG ORAL TABS 1 by mouth twice a day AUGMENTIN 500-125 MG ORAL TABS 345323 AMOXICILLIN-POT CLAVULANATE I nactive HYDROCODONE-ACETAMINOPHEN 5-325 MG TABS 1 po q6hr PRN Pain 03/09 HYDROCODONE-ACETAMINOPHEN 5-325 MG TABS 087800 HYDROCOD ONE-ACETAMINOPHEN Inactive CYCLOBENZAPRINE HCL 10 MG TABS 1 tablet by mouth three times daily as needed for muscle spasm/pain CYCLOBENZAPRINE HCL 10 MG TABS [id number] CYCLOBENZAPRINE HCL Inactive SPRINTEC 28 0.25-35 MG-MCG TABS 1 pill by mouth daily for bi rth control SPRINTEC 28 0.25-35 MG-MCG TABS [id number] NORGESTIMATE-ETH ESTRADIOL Inactive PERCOCET 5-325 MG TAB 1 tab po q 6 hours, prn severe pain PERCOCET 5-325 MG TAB [id number] OXYCODONE-ACETAMINOPHEN Inactive IBUPROFEN 600 MG ORAL TABS 1 by mouth twice a day 2014 IBUPROFEN 600 MG ORAL TABS 608902 IBUPROFEN Inactive CYMBALTA 30 MG CPEP 1 cap by mouth daily CYMBALTA 30 MG CPEP [id number] DULOXETINE HCL Inactive HYDROCODONE-ACETAMINOPHEN 5-325 MG TABS 1 po q6hr PRN Pain 04/09 HYDROCODONE-ACETAMINOPHEN 5-325 MG TABS [id number] HYDROCOD ONE-ACETAMINOPHEN Inactive TRAZODONE HCL 100 MG TAB 0.5 to 1 po qHS PRN Insomnia TRAZODONE HCL 100 MG TAB 921013 TRAZODONE HCL Inactive ALPRAZOLAM 0.5 MG TABS 1 po BID PRN Anxiety ALPRAZOLAM 0.5 MG TABS 699893 ALPRAZOLAM Inactive [id number] 50-325-40 MG ORAL CAPS 1-2 po TID [place] N Headache [id number] 50-325-40 MG ORAL CAPS 2 [id number] Inactive HYDROCODONE-ACETAMINOPHEN 5-325 MG TABS 1 po TID PRN Pain 9 HYDROCODONE-ACETAMINOPHEN 5-325 MG TABS 577167 HYDROCODONE-ACETAMIN OPHEN Inactive PERCOCET 10-325 MG TABS 1 tablet every 8 hours as needed for antonia n PERCOCET 10-325 MG TABS [id number] OXYCODONE-ACETAMINOPHEN Inactive ONDANSETRON 4 MG TBDP 1 q4h PRN nausea ON DANSETRON 4 MG TBDP [id number] ONDANSETRON Inactive VIIBRYD 10 & 20 & 40 MG KIT 1 po qd as directed 07/24 VIIBRYD 10 & 20 & 40 MG KIT VILAZODONE HCL Inactive DICLOFENAC SODIUM 50 MG TBEC 1 tablet by mouth four times da tom PRN Pain DICLOFENAC SODIUM 50 MG TBEC 929552 DICLOFENAC S ODIUM Inactive PERCOCET 10-325 MG ORAL TABS one every 6 hours prn pain PERCOCET 10-325 MG ORAL TABS [id number] OXYCODONE-ACETAMINOPHEN Inactiv e PERCOCET 10-325 MG ORAL TABS take 1 tab by mouth q 4hours as needed for pain PERCOCET 10-325 MG ORAL TABS [id number] OXYCODONE-ACETAMINOPHEN Inactive FLONASE ALLERGY RELIEF 50 MCG/ACT NASAL SUSP One spray in each nostril twice a day. FLONASE ALLERGY RELIEF 50 MCG/ACT NASAL S [facility] [id number] FLUTICASONE PROPIONATE Inactive AUGMENTIN 875-125 MG TAB 1 tab by mouth twice daily with food 20 23/05/16 AUGMENTIN 875-125 MG TAB [id number] AMOXICILLIN-POT [place] Inactive HYDROCODONE-ACETAMINOPHEN 5-325 MG TABS 1 tab by mouth every 6 hours as needed for pain HYDROCODONE-ACETAMINOPHEN 5-325 MG TABS 8 82421 HYDROCODONE-ACETAMINOPHEN Inactive PERCOCET 10-325 MG TABS 1 tablet every 8 hours as needed for antonia n PERCOCET 10-325 MG TABS [id number] OXYCODONE-ACETAMINOPHEN Inactive LC-4 LIDOCAINE 4 % EXT CREA apply q 6 hours, prn 08/03 LC-4 LIDOCAINE 4 % EXT CREA [id number] LIDOCAINE Inactive AMOXICILLIN 875 MG TABS 1 tab by mouth twice daily 201 07/18/07 AMOXICILLIN 875 MG TABS 041033 AMOXICILLIN Inactive KEFLEX 500 MG CAP 1 po tid x 10 days KEFLEX 500 MG CAP [id number] CEPHALEXIN Inactive AMOXICILLIN 875 MG TABS 1 tab by mouth twice daily 201 07/19/27 AMOXICILLIN 875 MG TABS 369606 AMOXICILLIN Inactive AMOXICILLIN 875 MG TABS 1 tab by mouth twice daily 201 08/09/13 AMOXICILLIN 875 MG TABS 548997 AMOXICILLIN Inactive CIPRO 500 MG TAB 1 tablet by mouth twice daily CIPRO 500 MG TAB 712916 CIPROFLOXACIN HCL Inactive BACTRIM DS 800-160 MG TAB 1 tab by mouth twice daily 2 BACTRIM DS 800-160 MG TAB 905229 TRIMETHOPRIM-SULFAMETHOXAZOLE Inac tive LEVAQUIN 500 MG TABS 1 PO q day x 7 days LEVAQUIN 500 MG TABS 902577 LEVOFLOXACIN Inactive CLINDAMYCIN HCL 300 MG CAPS 1 po QID x 7 days CLINDAMYCIN HCL 300 MG CAPS 370155 CLINDAMYCIN HCL Inactive AUGMENTIN 875-125 MG TAB 1 tab by mouth twice daily with food 20 22/05/07 AUGMENTIN 875-125 MG TAB 941962 AMOXICILLIN-POT [place] Inactive DIFLUCAN 150 MG TAB 1 qODay x 2 doses DIFLUCAN 150 MG TAB 483971 FLUCONAZOLE Inactive PREDNISONE 20 MG TAB 2 tabs daily for 3 days, 1 t ab daily for 3 days, 1/2 tab daily for 2 days PREDNISONE 20 MG TAB 718784 PREDNISON E Inactive AUGMENTIN 875-125 MG TAB 1 tab by mouth twice daily with food 20 21/10/13 AUGMENTIN 875-125 MG TAB 911230 AMOXICILLIN-POT [place] Inactive HYDROCODONE-ACETAMINOPHEN 5-325 MG TABS 1 tab by mouth every 6 hours as needed PRN Pain HYDROCODONE-ACETAMINOPHEN 5-325 MG TABS 8 03109 HYDROCODONE-ACETAMINOPHEN Inactive PROMETHAZINE HCL 25 MG TABS 1 four times a day as needed for nausea/vomiting PROMETHAZINE HCL 25 MG TABS 600831 PROMETHAZINE HCL Inactive Advance Directives Directive Description Start Date PERMISSION TO SHARE Immunizations Vaccine Administration Date Value Standard Alf cription Seasonal influenza vaccine, injectable, containing preservative, for > 3 years old (Afluria, FluLaval, Fluzone, Fluvirin, Fluarix, Agriflu(>= 18 yo)) Fluzone (>3 yrs.) [[id number]] Influenza, seasonal, inject able Seasonal influenza vaccine, injectable, preservative free, for > 3 years old (Afluria, FluLaval, Fluzone, Fluvirin, Fluarix, Agriflu(>= 18 yo)) Fluzone preservative free (>3 yrs.) [[id number]] Influenza, seasonal, injectable, preservative free Seasonal influenza vaccine, injectable, containing preservative, for > 3 years old (Afluria, FluLaval, Fluzone, Fluvirin, Fluarix, Agriflu(>= 18 yo)) Fluzone (>3 yrs.) [[id number]] Influenza, seasonal, inject able Seasonal influenza vaccine, injectable, containing preservative, for > 3 years old (Afluria, FluLaval, Fluzone, Fluvirin, Fluarix, Agriflu(>= 18 yo)) Fluzone (>3 yrs.) [[id number]] Influenza, seasonal, inject able dT (Diphtheria and [...] - [phone] [lb_av] Weigh t Measured Diagnostic Results Date [...] Panel - Chemistry sodium, serum 142 mmol/L [phone]/05/12 potassium, serum 4.8 mmol/L 3.5-5.2 chloride, serum [...] Panel - Chemistry cholesterol, serum 165 mg/dL [phone]/05/12 triglyceride, serum, fasting 524 mg/dL 30-200 HDL cholesterol, serum 24 mg/dL 32-96 cholesterol, serum 181 mg/dL 820-692 0208/09/01 triglyceride, serum, fasting 341 mg/dL 30-200 HDL [...] negative Encounters Code Encounter Date Provider Facility CPT-30819 Level 3 Est. Patient 21:00:18 VISUAL ASSOCIATE Rajni Rafayana jagjit [facility] [place][note 2] CPT-01908 Level 3 Est. Patient 14:15:00 VISUAL ASSOCIATE Kalpesh goins MD [facility]-43943 Level 2 Est. Patient 19:57:52 VISUAL ASSOCIATE Rajni danielson [facility]-78426 Level 3 Est. Patient 16:58:40 VISUAL ASSOCIATE Bj funes MD [facility]-09555 Level 3 Est. Patient 08:51:33 CDT Kalpesh goins MD [facility]-01465 Level 4 Est. Patient 14:14:53 CDT Abdirahman Rios MD [facility] CPT-99014 Level 3 Est. Patient 15:47:40 CDT Kalpesh goins MD [facility]-93011 Level 3 Est. Patient 10:57:26 CDT Abdirahman Rios MD [facility] CPT-27192 Level 3 Est. Patient 14:29:53 CDT Abhinav Galvan MD [facility] CPT-32945 Level 2 Est. Patient 16:33:01 CDT Kalpesh goins MD [facility]-57548 Level 4 Est. Patient 16:44:56 CDT Abdirahman Rios MD [facility] CPT-12577 Level 2 Est. Patient 07:49:32 CDT Kalpesh goins MD [facility] CPT-75472 Level 3 New Patient 15:47:11 VISUAL ASSOCIATE Bj huber MD [facility]-17668 Level 4 Est. Patient 14:37:38 VISUAL ASSOCIATE Abdirahman Rios MD [facility] CPT-43696 Level 2 Est. Patient 13:32:17 VISUAL ASSOCIATE Kalpesh goins MD [facility]-82741 Level 3 Est. Patient 17:32:57 VISUAL ASSOCIATE Edilberto tiwari DO [facility] CPT-12076 Level 3 Est. Patient 17:22:33 VISUAL ASSOCIATE Edilberto tiwari [facility] CPT-68026 Level 2 Est. Patient 16:57:09 VISUAL ASSOCIATE Kalpesh goins MD [facility]-16851 Level 3 Est. Patient 14:03:08 VISUAL ASSOCIATE Abdirahman Rios MD [facility] CPT-66071 Level 3 Est. Patient 18:12:34 CDT Shola Wright [facility] CPT-85701 Level 3 Est. Patient 19:34:46 CDT Shola Wright [facility] CPT-83664 Level 3 Est. Patient 14:19:37 CDT Abdirahman Rios MD [facility] CPT-94543 Level 3 Est. Patient 14:11:58 CDT Kalpesh goins MD [facility]-78489 Level 3 Est. Patient 16:50:00 CDT Michelle MERCADO [facility] CPT-08392 Level 3 Est. Patient 17:11:32 VISUAL ASSOCIATE Brandie bates MD PhD [facility] [place]-59970 Level 3 Est. Patient 16:31:47 VISUAL ASSOCIATE Shola Wright [facility]-73166 Level 3 Est. Patient 17:51:10 VISUAL ASSOCIATE Abhinav Galvan MD [facility] [place]-46546 Level 4 Est. Patient 12:54:56 VISUAL ASSOCIATE Kalpesh goins MD [facility] CPT-21040 Level 4 Est. Patient 12:53:56 VISUAL ASSOCIATE Kalpesh goins MD [facility] CPT-27009 Level 3 Est. Patient 17:56:58 CDT Shola Wright [facility] CPT-44248 Level 3 Est. Patient 14:26:20 CDT Janak butcher [facility] CPT-45460 Level 3 Est. Patient 09:38:41 CDT Shola Thao [facility] CPT-81333 Level 3 Est. Patient 14:45:26 CDT Edilberto tiwari [facility] CPT-81877 Level 3 Est. Patient 10:51:33 CDT Hira muniz [facility] CPT-57864 Level 3 Est. Patient 11:57:55 VISUAL ASSOCIATE Shola Keesha Wright [facility] CPT-27880 Level 3 Est. Patient 09:53:33 VISUAL ASSOCIATE Edilberto tiwari [facility] CPT-47864 Level 3 Est. Patient 14:42:54 VISUAL ASSOCIATE Abhinav Galvan MD [facility] CPT-40367 Level 3 Est. Patient 15:10:02 CDT Janak butcher [facility] CPT-11707 Level 3 Est. Patient 15:20:20 CDT Theo dennis MD [facility] CPT-14325 Level 2 Est. Patient 14:08:57 CDT Kalpesh goins MD [facility] CPT-19884 Level 3 Est. Patient 13:56:19 CDT Abdirahman Rios MD [facility] [place]-09611 Level 3 Est. Patient 13:59:37 CDT Abdirahman Rios MD [facility] CPT-42231 Level 2 Est. Patient 14:44:59 CDT Kalpesh goins MD [facility] CPT-48096 Level 3 Est. Patient 06:06:23 CDT Edilberto tiwari DO [facility] CPT-47801 Level 3 Est. Patient 15:23:54 CDT Abdirahman Rios MD [facility] CPT-19511 Level 3 Est. Patient 15:43:49 CDT Abdirahman Rios MD [facility] CPT-45218 Level 3 Est. Patient 12:46:47 VISUAL ASSOCIATE Abdirahman Rios MD [facility] CPT-83228 Level 3 Est. Patient 08:13:35 VISUAL ASSOCIATE Abdirahman Rios MD [facility] CPT-85605 Level 2 Est. Patient 09:36:42 VISUAL ASSOCIATE Abdirahman Rios MD [facility] CPT-67085 Level 3 Est. Patient 10:56:43 CDT Abdirahman Rios MD [facility] CPT-08098 Level 3 Est. Patient 18:24:52 CDT Abdirahman Rios MD [facility] CPT-75096 Level 3 Est. Patient 13:27:22 CDT Abdirahman Rios MD [facility] Procedures Code Procedure Name Date Entry Date Standard Desc ription CPT-80192 Postop F/U Visit 14:08:43 VISUAL ASSOCIATE CPT-17802 Postop F/U Visit 15:18:16 VISUAL ASSOCIATE CPT-23866 Postop F/U Visit 15:03:49 VISUAL ASSOCIATE CPT-17962 Postop F/U Visit 14:45:23 VISUAL ASSOCIATE CPT-21634 Postop F/U Visit 14:11:03 VISUAL ASSOCIATE CPT-54868 Postop F/U Visit 18:21:21 VISUAL ASSOCIATE CPT-65783 Postop F/U Visit 15:57:12 VISUAL ASSOCIATE CPT-74825 Bladder Instillation 16:58:41 VISUAL ASSOCIATE 6 CPT-76281 Fluzone Quadrivalent Intramuscular Suspe nsion 0.5 ML 15:20:56 VISUAL ASSOCIATE CPT-30698 Immunization Single Admin 15:20:56 VISUAL ASSOCIATE 2014 CPT-24243 Excis pilonidal cyst simple 08:51:34 CDT 20 22/04/20 CPT-62571 Venipuncture Draw Fee 14:27:29 CDT CPT-50312 Postop F/U Visit 15:27:43 CDT CPT-89623 Postop F/U Visit 14:40:59 CDT CPT-66829 Postop F/U Visit 15:02:46 CDT CPT-00119 Postop F/U Visit 11:29:00 VISUAL ASSOCIATE CPT-J0696 Rocephin 1000 mg (Ceftriaxone) 17:22:33 VISUAL ASSOCIATE CPT-35270 Postop F/U Visit 18:41:07 VISUAL ASSOCIATE CPT-72499 Postop F/U Visit 08:19:08 VISUAL ASSOCIATE CPT-16330 Immunization Single Admin 16:41:53 CDT 2013 CPT-06296 Fluzone Quadrivalent Intramuscular Suspe nsion 0.5 ML 16:41:53 CDT CPT-OV Office Visit 16:39:18 CDT CPT-OV Office Visit 16:16:36 CDT CPT-OV Office Visit 15:34:48 CDT CPT-82326 Postop F/U Visit 14:50:12 CDT CPT-75791 Postop F/U Visit 14:41:10 CDT CPT-65738 Venipuncture Draw Fee 11:38:04 VISUAL ASSOCIATE CPT-12117 Postop F/U Visit 19:02:59 VISUAL ASSOCIATE CPT-98693 Postop F/U Visit 12:04:54 VISUAL ASSOCIATE CPT-82074 Administration single or combination vac cine inc oral 15:56:43 CDT CPT-45485 Influenza split virus > age 3 15:56:43 CDT CPT-87354 Hand comp min 3V 14:25:19 CDT CPT-61759 Postop F/U Visit 21:40:51 CDT CPT-35377 Postop F/U Visit 10:58:43 CDT CPT-06213 Administration single or combination vac cine inc oral 12:33:54 VISUAL ASSOCIATE CPT-92391 Influenza Preservative Free split virus >age 3 12:33:54 VISUAL ASSOCIATE CPT-42696 Administration single or combination vac cine inc oral 09:30:51 CDT CPT-65853 Influenza split virus > age 3 09:30:51 CDT CPT-99229 Postop F/U Visit 15:14:53 CDT CPT-44179 Postop F/U Visit 13:50:14 CDT CPT-46763 Postop F/U Visit 13:34:52 CDT CPT-OV Office Visit 16:55:03 CDT CPT-70540 [place] of cervix w bx ECC 13:32:50 CDT 10/19 CPT-J1885 Toradol 60 mg (Ketorolac) 15:31:59 CDT 2011 CPT-J1885 Toradol 60 mg (Ketorolac) 15:23:54 CDT 2011 CPT-68050 Visit 11:34:37 VISUAL ASSOCIATE CPT-09398 Visit 10:52:39 VISUAL ASSOCIATE CPT-62650 Visit 10:12:02 VISUAL ASSOCIATE CPT-94843 Visit 11:22:43 VISUAL ASSOCIATE CPT-83771 Visit 11:24:12 VISUAL ASSOCIATE CPT-74600 Visit 10:47:05 VISUAL ASSOCIATE CPT-OV Office Visit 10:26:16 VISUAL ASSOCIATE CPT-OV Office Visit 15:34:31 VISUAL ASSOCIATE CPT-32468 Visit 10:42:08 VISUAL ASSOCIATE CPT-25969 Visit 10:52:45 VISUAL ASSOCIATE CPT-000 Give Appropriate Flu Vaccine 16:56:41 CDT 2 CPT-43494 Administration single or combination vac cine inc oral 10:33:21 CDT CPT-48929 Influenza split virus > age 3 10:33:21 CDT CPT-54729 Visit 13:23:09 CDT CPT-51532 Visit 18:24:52 CDT CPT-49046 Sono OB comp > 14 weeks 12:07:49 CDT 04/07
--- OUTSIDE RECORDS SUMMARY | 2020-01-18 16:15 | XMS REPORT | Clinical Summary ---
Author Author Admin, Jeri Rashid Organization [facility] Address Unknown Phone Unavailable Allergies, Adverse Reactions, Alerts Allergy Name Reaction Description Start Date Severity Status Pr ovider SULFA Critical Active Jillina Frazel l INSPECTOR SUBASSEMBLIES TORADOL Rash Severe Active Rajni Yokum AP RN BACTRIM Critical Active Kalpesh Dong MD ZITHROMAX rash all over Critical Active Darya H aubrey LATEX rash Moderate Active Darya Brauliok man Conditions or Problems Problem Name Problem Code Onset Date Status Entry Date Provider Comment Standard Description Annotate , INCIDENTAL PROBLEM V22.2 Resolved 07/20 Abdirahman Rios MD state, incidental LARGE FOR GESTATIONAL AGE 656.60 Resolved Abdirahman Riso MD Excessive growth affec ting management of [...] at surgical incision 782.0 Active Hira Moser INSPECTOR SUBASSEMBLIES Disturbance of skin sensation , INCIDENTAL PROBLEM [...] EXT CREA apply tid, prn LIDOCAIN E-PRILOCAINE 63872614971 Active Jillina Frajalenl INSPECTOR SUBASSEMBLIES Active PERCOCET 5-325 MG TAB 1 tab po q 6 hours, prn OXYCODONE-ACETAMINOPHEN 61345987367 Active Jillina Frazell INSPECTOR SUBASSEMBLIES Active HQEFOSIUSL-[id number] 50-325-40 MG ORAL TABS 1 po TID PRN Headaches [id number] 26295022519 No Longer Active Jillina Karmenl INSPECTOR SUBASSEMBLIES Active GLYDO 2 % EXT GEL apply to painful areas as needed 201 12/10/13 LIDOCAINE HCL 51376090456 No Longer Active Jillina Karmenl INSPECTOR SUBASSEMBLIES Ac tive PERCOCET 10-325 MG ORAL TABS 1 every 4 hous as needed OXYCODONE-ACETAMINOPHEN 99658170934 No Longer Active Jillina Karmenl INSPECTOR SUBASSEMBLIES Active LC-4 LIDOCAINE 4 % EXT CREA apply to painful area every 12 h ours or as needed LIDOCAINE 48241159128 No Longer Active Jillina Fra janee INSPECTOR SUBASSEMBLIES Active CHANTIX STARTING MONTH MARGARITA 0.5 MG X 11 & 1 MG X 42 TAB S 0.5mg daily for 3 days, then 0.5mg BID for 4 days, then 1mg BID VARENICL INE TARTRATE 91543840203 Active Abdirahman Rios MD Active AMOXICILLIN 500 MG CAPS 2 po BID x 10 days AMOX ICILLIN 40717028368 No Longer Active Abdirahman Rios MD Active PROMETHAZINE HCL 25 MG TABS 1 four times a day as needed for nausea/vomiting PROMETHAZINE HCL 21775268568 No Longer Active Abdirahman Rios MD Active LC-4 LIDOCAINE 4 % EXT CREA apply q 6 hours, prn 08/03 LIDOCAINE 49304285246 No Longer Active Kalpesh Dong MD Active PERCOCET 10-325 MG TABS 1 tablet every 8 hours as needed for antonia n OXYCODONE-ACETAMINOPHEN 65986141404 No Longer Active Kalpesh Dong MD Active HYDROCODONE-ACETAMINOPHEN 5-325 MG TABS 1 tab by mouth every 6 hours as needed for pain HYDROCODONE-ACETAMINOPHEN 89440282276 No Longer Active Kalpesh Dong MD Active AUGMENTIN 875-125 MG TAB 1 tab by mouth twice daily with food 20 23/05/16 AMOXICILLIN-POT CLAVULANATE 13076414891 No Longer Active Lizeth hi Yokum INSPECTOR SUBASSEMBLIES 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 FLUTICASONE PROPIONATE 52331379678 No Longer Ac tive Rajni Yokum INSPECTOR SUBASSEMBLIES Active PERCOCET 10-325 MG ORAL TABS take 1 tab by mouth q 4hours as needed for pain OXYCODONE-ACETAMINOPHEN 82606648348 No Longer Active Rajni Yokum INSPECTOR SUBASSEMBLIES Active PERCOCET 10-325 MG ORAL TABS one every 6 hours prn pain OXYCODONE-ACETAMINOPHEN 80151492454 No Longer Active Rajni Yokum INSPECTOR SUBASSEMBLIES Active IBUPROFEN 800 MG TABS 1 tab po tid, with food I BUPROFEN 43685853360 Active Jillsiri Hamiltonzell INSPECTOR SUBASSEMBLIES Active DICLOFENAC SODIUM 50 MG TBEC 1 tablet by mouth four times da tom PRN Pain DICLOFENAC SODIUM 35926793630 No Longer Active Rajni Yokum INSPECTOR SUBASSEMBLIES Active VIIBRYD 10 & 20 & 40 MG KIT 1 po qd as directed 07/24 VILAZODONE HCL 58527160928 No Longer Active Rajni Yokum INSPECTOR SUBASSEMBLIES Active ONDANSETRON 4 MG TBDP 1 q4h PRN nausea ONDANSET KELBY 22901956474 No Longer Active Rajnicristina Oconnorum INSPECTOR SUBASSEMBLIES Active PERCOCET 10-325 MG TABS 1 tablet every 8 hours as needed for antonia n OXYCODONE-ACETAMINOPHEN 18333640891 No Longer Active Rajni cox INSPECTOR SUBASSEMBLIES Active HYDROCODONE-ACETAMINOPHEN 5-325 MG TABS 1 po TID PRN Pain 9 HYDROCODONE-ACETAMINOPHEN 30848871309 No Longer Active Abdirahman Rios MD Active [id number] 50-325-40 MG ORAL CAPS 1-2 po TID ND N Headache [id number] 11200434814 No Longer Act krishna Kalpesh Dong MD Active ALPRAZOLAM 0.5 MG TABS 1 po BID PRN Anxiety ALP RAZOLAM 79901875822 No Longer Active Kalpesh Dong MD Active TRAZODONE HCL 100 MG TAB 0.5 to 1 po qHS PRN Insomnia TRAZODONE HCL 28178573705 No Longer Active Kalpesh Dong MD Activ e HYDROCODONE-ACETAMINOPHEN 5-325 MG TABS 1 po q6hr PRN Pain 04/09 HYDROCODONE-ACETAMINOPHEN 21495131842 No Longer Active Kalpesh Dong MD Active CYMBALTA 30 MG CPEP 1 cap by mouth daily DULOXE CLEO HCL 40287542523 No Longer Active Abdirahman Rios MD Active IBUPROFEN 600 MG ORAL TABS 1 by mouth twice a day 2014 IBUPROFEN 79223549852 No Longer Active Abdirahman Rios MD Activ e PERCOCET 5-325 MG TAB 1 tab po q 6 hours, prn severe pain 1 OXYCODONE-ACETAMINOPHEN 58561565563 No Longer Active Abdirahman Rios MD Active SPRINTEC 28 0.25-35 MG-MCG TABS 1 pill by mouth daily for bi rth control NORGESTIMATE-ETH ESTRADIOL 60334470984 No Longer Acti ve Matthewllina Joyzell INSPECTOR SUBASSEMBLIES Active CYCLOBENZAPRINE HCL 10 MG TABS 1 tablet by mouth three times daily as needed for muscle spasm/pain CYCLOBENZAPRINE HCL 97400972630 No Longer Active Jillina Frazell INSPECTOR SUBASSEMBLIES Active HYDROCODONE-ACETAMINOPHEN 5-325 MG TABS 1 po q6hr PRN Pain 03/09 HYDROCODONE-ACETAMINOPHEN 85489679023 No Longer Active Matthewllina Joyzel l INSPECTOR SUBASSEMBLIES Active AUGMENTIN 500-125 MG ORAL TABS 1 by mouth twice a day AMOXICILLIN-POT CLAVULANATE 75462253421 No Longer Active Jillina Frazell INSPECTOR SUBASSEMBLIES Active DICLOFENAC SODIUM 50 MG TBEC 1 tablet by mouth four times da tom PRN Pain DICLOFENAC SODIUM 41480170399 No Longer Active Karenin a Karmenl INSPECTOR SUBASSEMBLIES Active PROMETHAZINE HCL 25 MG TABS 1 four times a day as needed for nausea/vomiting PROMETHAZINE HCL 87890888752 No Longer Active Abdirahman Rios MD Active HYDROCODONE-ACETAMINOPHEN 5-325 MG TABS 1 tab by mouth every 6 hours as needed PRN Pain HYDROCODONE-ACETAMINOPHEN 60611745451 No Longer Active Abdirahman Rios MD Active GEMFIBROZIL 600 MG TABS 1 po BID GEMFIBROZIL 25734911 005 Active Abdirahman Rios MD Active PERCOCET 5-325 MG ORAL TABS 1 every 6 hours as needed OXYCODONE-ACETAMINOPHEN 96087011455 No Longer Active Abdirahman Rios MD Active PERCOCET 5-325 MG TAB 1 tab po q 6 -8 hours, prn for severe pain OXYCODONE-ACETAMINOPHEN 52970537033 No Longer Active Abdirahman Rios MD Active HYDROCODONE-ACETAMINOPHEN 5-325 MG TABS 1 po q6hr PRN pain 06/30 HYDROCODONE-ACETAMINOPHEN 64042679463 No Longer Active Hira roman INSPECTOR SUBASSEMBLIES Active GLUCOPHAGE 500 MG ORAL TABS one by mouth 3 times a day METFORMIN HCL 54874533910 No Longer Active Matthewllina aKrmenl INSPECTOR SUBASSEMBLIES Ac tive PERCOCET 10-325 MG TABS 1 tab by mouth every 6 hours , use sparingly for severe pain OXYCODONE-ACETAMINOPHEN 34916372151 No Longer A ctive Abdirahman Rios MD Active EMLA 2.5-2.5 % EXT CREA apply to skin lesion q 6 hours, prn 2014 LIDOCAINE-PRILOCAINE 61331008443 No Longer Active Abdirahman Rios MD Active PERCOCET 10-325 MG ORAL TABS 1 every 4 hours as needed OXYCODONE-ACETAMINOPHEN 50970273896 No Longer Active Abdirahman Rios MD Active AUGMENTIN 875-125 MG TAB 1 tab by mouth twice daily with food 20 21/10/13 AMOXICILLIN-POT CLAVULANATE 52311447045 No Longer Active Ursula Moser APRN Active PROAIR HFA 108 (90 BASE) MCG/ACT AERS 2 puff q 4-6 hrs PRN 01/24 ALBUTEROL SULFATE 50210074371 No Longer Active Kalpesh Dong MD Active PREDNISONE 20 MG TAB 2 tabs daily for 3 days, 1 t ab daily for 3 days, 1/2 tab daily for 2 days PREDNISONE 96830448311 No Longer Active Abdirahman Rios MD Active KEFLEX 500 MG CAP 1 po qid CEPHALEXIN 080652707 20 No Longer Active Kalpesh Dong MD Active PERCOCET 5-325 MG TAB 1 every 6 hours as needed OXYCODONE-ACETAMINOPHEN 77053884908 No Longer Active Shola MCGILL Active LC-5 LIDOCAINE 5 % CREA apply 1 time daily to affected area 2013 LIDOCAINE (ANORECTAL) 71577710450 No Longer Active Hira muniz INSPECTOR SUBASSEMBLIES Active HYDROCODONE-ACETAMINOPHEN 10-325 MG TABS 1 by mouth ev chaka 8 hours as needed for pain HYDROCODONE-ACETAMINOPHEN 80826849508 No Longer Active Jillina Karmenl INSPECTOR SUBASSEMBLIES Active LORATADINE 10 MG TABS 1 tablet by mouth daily L ORATADINE 24550453275 No Longer Active Jillina Frazell INSPECTOR SUBASSEMBLIES Active DIFLUCAN 150 MG TAB 1 qODay x 2 doses FLUCONAZO LE 73568020105 No Longer Active Jillina Frazell INSPECTOR SUBASSEMBLIES Active CYCLOBENZAPRINE HCL 10 MG TABS 1/2 - 1 tab PO tid PRN back p ain, muscle spasm CYCLOBENZAPRINE HCL 78149402293 No Longer Active Akren siri Frazell INSPECTOR SUBASSEMBLIES Active AUGMENTIN 875-125 MG TAB 1 tab by mouth twice daily with food 20 22/05/07 AMOXICILLIN-POT CLAVULANATE 94318675393 No Longer Active Loida Rios MD Active MOBIC 15 MG TABS 1 tab daily MELOXICAM 426787175 14 No Longer Active Abdirahman Rios MD Active PERCOCET 7.5-325 MG TABS 1 PO tid PRN pain OXYCODONE-ACETAMINOPHEN 24398022718 No Longer Active Abdirahman Rios MD Active LIDODERM 5 % PTCH One patch to painful area ND N. On for 12 hrs, off for 12 hrs. LIDOCAINE 82026386108 No Longer Active Abdirahman Rios MD Active PERCOCET 7.5-325 MG TABS 1 PO q 8 hrs PRN pain OXYCODONE-ACETAMINOPHEN 33931623402 No Longer Active Shola MCGILL Active HYDROCODONE-ACETAMINOPHEN 7.5-325 MG TABS 1 by mouth e very 6 hours as needed for pain HYDROCODONE-ACETAMINOPHEN 05878395438 No Longer Active Good Julian MD Active CLINDAMYCIN HCL 300 MG CAPS 1 po QID x 7 days CLINDAMYCIN HCL 39176029755 No Longer Active Abdirahman Rios MD Activ e BACTRIM DS 800-160 MG TABS 1 po BID x 7 days 5 SULFAMETHOXAZOLE-TRIMETHOPRIM 66143590723 No Longer Active Abdirahman Rios MD Active ENDOCET 10-325 MG TABS 1 q 6 hr prn OXYCODONE-ACETAMINOPHEN 72834117626 No Longer Active Abdirahman Rios MD Active IBUPROFEN 800 MG TABS 1 tid prn IBUPROFEN 450111 01555 No Longer Active Abdirahman Rios MD Active BACTRIM DS 800-160 MG TABS by mouth twice a day 11/05 SULFAMETHOXAZOLE-TRIMETHOPRIM 10964088532 No Longer Active Good Julian MD Active HYDROCODONE-ACETAMINOPHEN 7.5-325 MG TABS 1 four times a day as needed for pain HYDROCODONE-ACETAMINOPHEN 19033082584 No Longer Activ e Good Julian MD Active KEFLEX 500 MG CAP 1 tab po tid CEPHALEXIN 324070 09591 No Longer Active Hira Moser APRN Active IBUPROFEN 800 MG TAB 1 pill three times daily as needed for pain IBUPROFEN 69840052295 No Longer Active Kalpesh Dong MD Active PROMETHAZINE-CODEINE 6.25-10 MG/5ML SYRP 1 tsp every 6 hrs prn c ough PROMETHAZINE-CODEINE 92427609350 No Longer Active Kalpesh Carr Active HYDROCODONE-ACETAMINOPHEN 5-325 MG TABS 1 tab by mouth every 6 hours as needed HYDROCODONE-ACETAMINOPHEN 54515877937 No Longer Activ e Shola MCGILL Active CEPHALEXIN 500 MG CAPS 1 PO bid x 7 days CEPHAL EXIN 78962453734 No Longer Active Shola MCGILL Active BACTRIM DS 800-160 MG TAB 1 tab by mouth twice daily 2 TRIMETHOPRIM-SULFAMETHOXAZOLE 57148609635 No Longer Active Kalpesh Dong MD Active HYDROCODONE-ACETAMINOPHEN 5-325 MG TABS 1 PO tid PRN pain 5 HYDROCODONE-ACETAMINOPHEN 35208854635 No Longer Active Abhinav Galvan MD Active IMPLANON 68 MG IMPL IMPLANTED IN LEFT ARM ETONO GESTREL 70544083930 No Longer Active Hira Moser APRN Active AMOXICILLIN 500 MG TABS 2 tabs PO bid x 10 d AM OXICILLIN 10844817156 No Longer Active Kalpesh Dong MD Active LEVAQUIN 500 MG TABS 1 PO q day x 7 days LEVOFL OXACIN 81510131074 No Longer Active Shola MCGILL Active AMITRIPTYLINE HCL 25 MG TAB 1 tab by mouth daily 60 minutes before bedtime AMITRIPTYLINE HCL 69683025600 No Longer Active Shola MCGILL Active LORTAB 5 5-500 MG TABS 1/2 to 1 tablet by mouth go ry 6 hours as needed for pain HYDROCODONE-ACETAMINOPHEN 97036386366 No Longer Active Shola MCGILL Active CEPHALEXIN 500 MG TABS Take one by mouth four times daily, morning, noon, early evening and bedtime. CEPHALEXIN 03922761763 No Long er Active Hira Moser APRN Active TYLENOL/CODEINE #3 300-30 MG TAB 1-2 po q6hr PRN Pain ACETAMINOPHEN-CODEINE 28827134874 No Longer Active Edilberto Marino DO Active PRISTIQ 50 MG [id number] 1 po qd DESVENLAFAXI NE SUCCINATE 07107613258 No Longer Active Edilberto Marino DO Active PENICILLIN V POTASSIUM 500 MG TAB 1 four times a day 2 PENICILLIN V POTASSIUM 43361036540 No Longer Active Edilberto Marino DO Active DOXYCYCLINE HYCLATE 100 MG CAPS Take one (1) tablet by mouth twice a day DOXYCYCLINE HYCLATE 29598972652 No Longer Active Ronnie Galvan MD Active HYDROCODONE-ACETAMINOPHEN 5-325 MG TABS 1 po q 6hr PRN Pain 2011 HYDROCODONE-ACETAMINOPHEN 42297614596 No Longer Active Patri joan Perez RN Active BACTRIM DS 800-160 MG TAB 1 tab by mouth twice daily 2 TRIMETHOPRIM-SULFAMETHOXAZOLE 19343813105 No Longer Active Kalpesh Dong MD Active LORTAB 5 5-500 MG TABS 1/2 to 1 tablet by mouth go ry 4 hours as needed for pain HYDROCODONE-ACETAMINOPHEN 12033938087 No Longer Active Kalpesh Dong MD Active GENERESS FE 0.8-25 MG-MCG CHEW Take one by mouth daily NORETHIN-ETH ESTRADIOL-FE 44872275426 No Longer Active Kalpesh Dong MD Active HYDROCODONE-ACETAMINOPHEN 7.5-500 MG TABS 1-2 every 4 hours as needed HYDROCODONE-ACETAMINOPHEN 41096986573 No Longer Activ e Kalpesh Dong MD Active FERROUS SULFATE 325 (65 FE) MG TABS 1 tablet by mouth twice yung y FERROUS SULFATE 23143936164 No Longer Active Kalpesh Dong MD Active IBUPROFEN 600 MG TAB 1 po q6-8hr PRN IBUPROFEN 77736075568 No Longer Active Kalpesh Dong MD Active SPIRONOLACTONE 25 MG TAB 1 tablet by mouth daily 01/22 SPIRONOLACTONE 30146104418 No Longer Active Kalpesh Dong MD Acti ve HYDROCODONE-ACETAMINOPHEN 7.5-325 MG TABS 1 po QID PRN Pain 2011 HYDROCODONE-ACETAMINOPHEN 81868393853 No Longer Active Kalpesh Dong MD Active CLINDAMYCIN HCL 300 MG CAPS 1 po q6hr x 7 days CLINDAMYCIN HCL 46804120441 No Longer Active Edilberto Marino DO Active PREDNISONE 20 MG TAB 2 tabs daily for 4 days, 1 t ab daily for 4 days, 1/2 tab daily for 4 days PREDNISONE 37425696494 No Longer Active Edilberto Marino DO Active PERCOCET 5-325 MG TABS 1 tablet by mouth every 6 hours as ne eded for pain OXYCODONE-ACETAMINOPHEN 37530416742 No Longer Active Abdirahman Rios MD Active VITAMINS TABS Take one by mouth daily MV & MIN W/FE-FA TABS 36073901227 No Longer Active Abdirahman Rios MD Active LUIS 3-0.02 MG TABS 1 tablet by mouth daily as directed DROSPIRENONE-ETHINYL ESTRADIOL 69860321493 No Longer Active Abdirahman Rios MD Active LORATADINE 10 MG TABS 1 tablet by mouth daily L ORATADINE 07152367643 No Longer Active Kalpesh Dong MD Active HYDROCODONE-ACETAMINOPHEN 5-325 MG TABS 1 po q 6hr PRN Pain 2010 HYDROCODONE-ACETAMINOPHEN 68739661222 No Longer Active Edilberto Marino DO Active BACTRIM DS 800-160 MG TAB 1 tab by mouth twice daily 2 TRIMETHOPRIM-SULFAMETHOXAZOLE 73803710326 No Longer Active Abdirahman Rios MD Active 28-0.8 MG TABS Take one by mouth daily 09/20 VIT-FE FUMARATE-FA 72263898857 No Longer Active Abdirahman Rios MD Active CIPRO 500 MG TAB 1 tablet by mouth twice daily CIPROFLOXACIN HCL 67034933507 No Longer Active Abdirahman Rios MD Active BENADRYL 25 MG CAP 1 po q8hr PRN Congestion DIPHENHYDRAMINE HCL 72112553700 No Longer Active Abdirahman Rios MD Active ZOLOFT 50 MG TAB 1 po qd SERTRALINE HCL 670863 89532 No Longer Active Abdirahman Rios MD Active AMOXICILLIN 875 MG TABS 1 tab by mouth twice daily 201 08/09/13 AMOXICILLIN 98067353378 No Longer Active Abdirahman Rios MD Activ e AMOXICILLIN 875 MG TABS 1 tab by mouth twice daily 201 07/19/27 AMOXICILLIN 89566066011 No Longer Active Abdirahman Rios MD Activ e BACTRIM DS 800-160 MG TAB 2 tab by mouth twice daily 2 TRIMETHOPRIM-SULFAMETHOXAZOLE 62066769285 No Longer Active Abdirahman Rios MD Active KEFLEX 500 MG CAP 1 po tid x 10 days CEPHALEXIN 85028478285 No Longer Active Abdirahman Rios MD Active AMOXICILLIN 875 MG TABS 1 tab by mouth twice daily 201 07/18/07 AMOXICILLIN 96882193953 No Longer Active Abdirahman Rios MD Activ e BACTRIM DS 800-160 MG TAB 2 tab by mouth twice daily 2 BACTRIM DS 800-160 MG TAB 307342 TRIMETHOPRIM-SULFAMETHOXAZOLE Inactive ZOLOFT 50 MG TAB 1 po qd ZOLOFT 50 MG TAB 3129 41 SERTRALINE HCL Inactive BENADRYL 25 MG CAP 1 po q8hr PRN Congestion BENADRYL 25 MG CAP [id number] DIPHENHYDRAMINE HCL Inactive 28-0.8 MG TABS Take one by mouth daily 09/20 28-0.8 MG TABS VIT-FE FUMARATE-FA Inactive HYDROCODONE-ACETAMINOPHEN 5-325 MG TABS 1 po q 6hr PRN Pain 2010 HYDROCODONE-ACETAMINOPHEN 5-325 MG TABS 404446 HYDROCODONE-ACETAMINOPHEN Inactive LORATADINE 10 MG TABS 1 tablet by mouth daily LORATADINE 10 MG TABS 515716 LORATADINE Inactive LUIS 3-0.02 MG TABS 1 tablet by mouth daily as directed LUIS 3-0.02 MG TABS 922470 DROSPIRENONE-ETHINYL ESTRADIOL Inactive VITAMINS TABS Take one by mouth daily VITAMINS TABS MV & MIN W/FE-FA TABS Inactive PERCOCET 5-325 MG TABS 1 tablet by mouth every 6 hours as ne eded for pain PERCOCET 5-325 MG TABS 6781231 OXYCODONE-ACETAMIN OPHEN Inactive PREDNISONE 20 MG TAB 2 tabs daily for 4 days, 1 t ab daily for 4 days, 1/2 tab daily for 4 days PREDNISONE 20 MG TAB 294074 PREDNISON E Inactive CLINDAMYCIN HCL 300 MG CAPS 1 po q6hr x 7 days CLINDAMYCIN HCL 300 MG CAPS 534877 CLINDAMYCIN HCL Inactive HYDROCODONE-ACETAMINOPHEN 7.5-325 MG TABS 1 po QID PRN Pain 2011 HYDROCODONE-ACETAMINOPHEN 7.5-325 MG TABS 459260 HYDROCODONE-ACETAMINOPHEN Inactive SPIRONOLACTONE 25 MG TAB 1 tablet by mouth daily 01/22 SPIRONOLACTONE 25 MG TAB 265378 SPIRONOLACTONE Inactive IBUPROFEN 600 MG TAB 1 po q6-8hr PRN IBUPROFEN 600 MG TAB 391603 IBUPROFEN Inactive FERROUS SULFATE 325 (65 FE) MG TABS 1 tablet by mouth twice yung y FERROUS SULFATE 325 (65 FE) MG TABS 155456 FERROUS SULF ATE Inactive HYDROCODONE-ACETAMINOPHEN 7.5-500 MG TABS 1-2 every 4 hours as needed HYDROCODONE-ACETAMINOPHEN 7.5-500 MG TABS HYDROCODONE-ACETAMINOPHEN Inactive GENERESS FE 0.8-25 MG-MCG CHEW Take one by mouth daily GENERESS FE 0.8-25 MG-MCG CHEW [id number] NORETHIN-ETH ESTRADIOL-FE Inactive LORTAB 5 5-500 MG TABS 1/2 to 1 tablet by mouth go ry 4 hours as needed for pain LORTAB 5 5-500 MG TABS HYDROCODONE-A CETAMINOPHEN Inactive BACTRIM DS 800-160 MG TAB 1 tab by mouth twice daily 2 BACTRIM DS 800-160 MG TAB 083451 TRIMETHOPRIM-SULFAMETHOXAZOLE Inac tive HYDROCODONE-ACETAMINOPHEN 5-325 MG TABS 1 po q 6hr PRN Pain 2011 HYDROCODONE-ACETAMINOPHEN 5-325 MG TABS 460386 HYDROCODONE-ACETAMINOPHEN Inactive DOXYCYCLINE HYCLATE 100 MG CAPS Take one (1) tablet by mouth twice a day DOXYCYCLINE HYCLATE 100 MG CAPS 2586584 DOXYCYCLINE HYCLATE Inactive PENICILLIN V POTASSIUM 500 MG TAB 1 four times a day 2 PENICILLIN V POTASSIUM 500 MG TAB 763493 PENICILLIN V POTASSIUM Siri ctive PRISTIQ 50 MG [id number] 1 po qd PRISTIQ 50 MG [id number] DESVENLAFAXINE SUCCINATE Inactive TYLENOL/CODEINE #3 300-30 MG TAB 1-2 po q6hr PRN Pain TYLENOL/CODEINE #3 300-30 MG TAB 977038 ACETAMINOPHEN-CODEINE Inact krishna CEPHALEXIN 500 MG TABS Take one by mouth four times daily, morning, noon, early evening and bedtime. CEPHALEXIN 500 MG TABS 062654 CEPHALEXIN Inactive LORTAB 5 5-500 MG TABS 1/2 to 1 tablet by mouth go ry 6 hours as needed for pain LORTAB 5 5-500 MG TABS HYDROCODONE-A CETAMINOPHEN Inactive AMITRIPTYLINE HCL 25 MG TAB 1 tab by mouth daily 60 minutes before bedtime AMITRIPTYLINE HCL 25 MG TAB 121264 AMITRIPTYLINE HCL Inactive AMOXICILLIN 500 MG TABS 2 tabs PO bid x 10 d 7 AMOXICILLIN 500 MG TABS 761097 AMOXICILLIN Inactive IMPLANON 68 MG IMPL IMPLANTED IN LEFT ARM IMPLANON 68 MG IMPL ETONOGESTREL Inactive HYDROCODONE-ACETAMINOPHEN 5-325 MG TABS 1 PO tid PRN pain 5 HYDROCODONE-ACETAMINOPHEN 5-325 MG TABS 670568 HYDROCODONE-ACETAMIN OPHEN Inactive BACTRIM DS 800-160 MG TAB 1 tab by mouth twice daily 2 BACTRIM DS 800-160 MG TAB [id number] TRIMETHOPRIM-SULFAMETHOXAZOLE Inac tive CEPHALEXIN 500 MG CAPS 1 PO bid x 7 days CEPHALEXIN 500 MG CAPS 805149 CEPHALEXIN Inactive HYDROCODONE-ACETAMINOPHEN 5-325 MG TABS 1 tab by mouth every 6 hours as needed HYDROCODONE-ACETAMINOPHEN 5-325 MG TABS 715479 HYDROCODONE-ACETAMINOPHEN Inactive PROMETHAZINE-CODEINE 6.25-10 MG/5ML SYRP 1 tsp every 6 hrs prn c ough PROMETHAZINE-CODEINE 6.25-10 MG/5ML SYRP 107751 PROMETH AZINE-CODEINE Inactive IBUPROFEN 800 MG TAB 1 pill three times daily as needed for pain IBUPROFEN 800 MG TAB IBUPROFEN Inactive KEFLEX 500 MG CAP 1 tab po tid KEFLEX 500 MG CAP 343634 CEPHALEXIN Inactive HYDROCODONE-ACETAMINOPHEN 7.5-325 MG TABS 1 four times a day as needed for pain HYDROCODONE-ACETAMINOPHEN 7.5-325 MG TABS 889064 HYDROCODONE-ACETAMINOPHEN Inactive BACTRIM DS 800-160 MG TABS by mouth twice a day 11/05 BACTRIM DS 800-160 MG TABS 19820910 SULFAMETHOXAZOLE-TRIMETHOPRIM Inactive IBUPROFEN 800 MG TABS 1 tid prn IBUPROFEN 800 MG TABS 113520 IBUPROFEN Inactive ENDOCET 10-325 MG TABS 1 q 6 hr prn ENDOC ET 10-325 MG TABS 8435590 OXYCODONE-ACETAMINOPHEN Inactive HYDROCODONE-ACETAMINOPHEN 7.5-325 MG TABS 1 by mouth e very 6 hours as needed for pain HYDROCODONE-ACETAMINOPHEN 7.5-325 MG TABS 385189 HYDROCODONE-ACETAMINOPHEN Inactive PERCOCET 7.5-325 MG TABS 1 PO q 8 hrs PRN pain PERCOCET 7.5-325 MG TABS 4870269 OXYCODONE-ACETAMINOPHEN Inactive LIDODERM 5 % PTCH One patch to painful area ND N. On for 12 hrs, off for 12 hrs. LIDODERM 5 % MERGED WITH [facility] 9887304 LIDOCAINE Inactiv e PERCOCET 7.5-325 MG TABS 1 PO tid PRN pain PERCOCET 7.5- 325 MG TABS 2717382 OXYCODONE-ACETAMINOPHEN Inactive MOBIC 15 MG TABS 1 tab daily MOBIC 15 MG TABS 15 2695 MELOXICAM Inactive CYCLOBENZAPRINE HCL 10 MG TABS 1/2 - 1 tab PO tid PRN back p ain, muscle spasm CYCLOBENZAPRINE HCL 10 MG TABS 517135 CYCLOBENZA JOSEPH HCL Inactive LORATADINE 10 MG TABS 1 tablet by mouth daily LORATADINE 10 MG TABS 099674 LORATADINE Inactive HYDROCODONE-ACETAMINOPHEN 10-325 MG TABS 1 by mouth ev chaka 8 hours as needed for pain HYDROCODONE-ACETAMINOPHEN 10-325 MG TABS 923376 HYDROCODONE-ACETAMINOPHEN Inactive LC-5 LIDOCAINE 5 % CREA apply 1 time daily to affected area 2013 LC-5 LIDOCAINE 5 % CREA [id number] LIDOCAINE (ANORECTAL) In active PERCOCET 5-325 MG TAB 1 every 6 hours as needed PERCOCET 5-325 MG TAB 2304941 OXYCODONE-ACETAMINOPHEN Inactive KEFLEX 500 MG CAP 1 po qid KEFLEX 500 MG CAP 30 9114 CEPHALEXIN Inactive PROAIR HFA 108 (90 BASE) MCG/ACT AERS 2 puff q 4-6 hrs PRN 01/24 PROAIR HFA 108 (90 BASE) MCG/ACT AERS ALBUTEROL SULFATE Inactive PERCOCET 10-325 MG ORAL TABS 1 every 4 hours as needed PERCOCET 10-325 MG ORAL TABS [id number] OXYCODONE-ACETAMINOPHEN Inactiv e EMLA 2.5-2.5 % EXT CREA apply to skin lesion q 6 hours, prn 2014 EMLA 2.5-2.5 % EXT CREA [id number] LIDOCAINE-PRILOCAINE Siri ctive PERCOCET 10-325 MG TABS 1 tab by mouth every 6 hours , use sparingly for severe pain PERCOCET 10-325 MG TABS [id number] OXYCODONE-ACETAMINOPHEN Inactive GLUCOPHAGE 500 MG ORAL TABS one by mouth 3 times a day GLUCOPHAGE 500 MG ORAL TABS [id number] METFORMIN HCL Inactive HYDROCODONE-ACETAMINOPHEN 5-325 MG TABS 1 po q6hr PRN pain 06/30 HYDROCODONE-ACETAMINOPHEN 5-325 MG TABS [id number] HYDROCOD ONE-ACETAMINOPHEN Inactive PERCOCET 5-325 MG TAB 1 tab po q 6 -8 hours, prn for severe pain PERCOCET 5-325 MG TAB [id number] OXYCODONE-ACETAMINOPHEN In active PERCOCET 5-325 MG ORAL TABS 1 every 6 hours as needed PERCOCET 5-325 MG ORAL TABS [id number] OXYCODONE-ACETAMINOPHEN Inactive DICLOFENAC SODIUM 50 MG TBEC 1 tablet by mouth four times da tom PRN Pain DICLOFENAC SODIUM 50 MG TBEC [id number] DICLOFENAC S ODIUM Inactive AUGMENTIN 500-125 MG ORAL TABS 1 by mouth twice a day AUGMENTIN 500-125 MG ORAL TABS [id number] AMOXICILLIN-POT CLAVULANATE I nactive HYDROCODONE-ACETAMINOPHEN 5-325 MG TABS 1 po q6hr PRN Pain 03/09 HYDROCODONE-ACETAMINOPHEN 5-325 MG TABS [id number] HYDROCOD ONE-ACETAMINOPHEN Inactive CYCLOBENZAPRINE HCL 10 MG TABS 1 tablet by mouth three times daily as needed for muscle spasm/pain CYCLOBENZAPRINE HCL 10 MG TABS [id number] 8 CYCLOBENZAPRINE HCL Inactive SPRINTEC 28 0.25-35 MG-MCG TABS 1 pill by mouth daily for bi rth control SPRINTEC 28 0.25-35 MG-MCG TABS [id number] NORGESTIMATE-ETH ESTRADIOL Inactive PERCOCET 5-325 MG TAB 1 tab po q 6 hours, prn severe pain PERCOCET 5-325 MG TAB [id number] OXYCODONE-ACETAMINOPHEN Inactive IBUPROFEN 600 MG ORAL TABS 1 by mouth twice a day 2014 IBUPROFEN 600 MG ORAL TABS 825760 IBUPROFEN Inactive CYMBALTA 30 MG CPEP 1 cap by mouth daily CYMBALTA 30 MG CPEP 063072 DULOXETINE HCL Inactive HYDROCODONE-ACETAMINOPHEN 5-325 MG TABS 1 po q6hr PRN Pain 04/09 HYDROCODONE-ACETAMINOPHEN 5-325 MG TABS 084734 HYDROCOD ONE-ACETAMINOPHEN Inactive TRAZODONE HCL 100 MG TAB 0.5 to 1 po qHS PRN Insomnia TRAZODONE HCL 100 MG TAB 836144 TRAZODONE HCL Inactive ALPRAZOLAM 0.5 MG TABS 1 po BID PRN Anxiety ALPRAZOLAM 0.5 MG TABS 300993 ALPRAZOLAM Inactive TALZWHDUKP-UPW-PQADXZEO 50-325-40 MG ORAL CAPS 1-2 po TID ND N Headache ECPJUENORX-ZEF-SEWSNBJJ 50-325-40 MG ORAL CAPS 2 24021 RAMKFQFXSP-SJRPTFH-OLQUZEUO Inactive HYDROCODONE-ACETAMINOPHEN 5-325 MG TABS 1 po TID PRN Pain 9 HYDROCODONE-ACETAMINOPHEN 5-325 MG TABS 221414 HYDROCODONE-ACETAMIN OPHEN Inactive PERCOCET 10-325 MG TABS 1 tablet every 8 hours as needed for antonia n PERCOCET 10-325 MG TABS 4239508 OXYCODONE-ACETAMINOPHEN Inactive ONDANSETRON 4 MG TBDP 1 q4h PRN nausea ON DANSETRON 4 MG TBDP 673121 ONDANSETRON Inactive VIIBRYD 10 & 20 & 40 MG KIT 1 po qd as directed 07/24 VIIBRYD 10 & 20 & 40 MG KIT VILAZODONE HCL Inactive DICLOFENAC SODIUM 50 MG TBEC 1 tablet by mouth four times da tom PRN Pain DICLOFENAC SODIUM 50 MG TBEC 298579 DICLOFENAC S ODIUM Inactive PERCOCET 10-325 MG ORAL TABS one every 6 hours prn pain PERCOCET 10-325 MG ORAL TABS 4964023 OXYCODONE-ACETAMINOPHEN Inactiv e PERCOCET 10-325 MG ORAL TABS take 1 tab by mouth q 4hours as needed for pain PERCOCET 10-325 MG ORAL TABS [id number] OXYCODONE-ACETAMINOPHEN Inactive FLONASE ALLERGY RELIEF 50 MCG/ACT NASAL SUSP One spray in each nostril twice a day. FLONASE ALLERGY RELIEF 50 MCG/ACT NASAL S SHELTER 582833 FLUTICASONE PROPIONATE Inactive AUGMENTIN 875-125 MG TAB 1 tab by mouth twice daily with food 20 23/05/16 AUGMENTIN 875-125 MG TAB 939271 AMOXICILLIN-POT [place] Inactive HYDROCODONE-ACETAMINOPHEN 5-325 MG TABS 1 tab by mouth every 6 hours as needed for pain HYDROCODONE-ACETAMINOPHEN 5-325 MG TABS 8 14144 HYDROCODONE-ACETAMINOPHEN Inactive PERCOCET 10-325 MG TABS 1 tablet every 8 hours as needed for antonia n PERCOCET 10-325 MG TABS 8397114 OXYCODONE-ACETAMINOPHEN Inactive LC-4 LIDOCAINE 4 % EXT CREA apply q 6 hours, prn 08/03 LC-4 LIDOCAINE 4 % EXT CREA 1625224 LIDOCAINE Inactive PROMETHAZINE HCL 25 MG TABS 1 four times a day as needed for nausea/vomiting PROMETHAZINE HCL 25 MG TABS 177155 PROMETHAZINE HCL Inactive LC-4 LIDOCAINE 4 % EXT CREA apply to painful area every 12 h ours or as needed LC-4 LIDOCAINE 4 % EXT CREA 4113596 LIDOCAINE Inactive PERCOCET 10-325 MG ORAL TABS 1 every 4 hous as needed PERCOCET 10-325 MG ORAL TABS 4884747 OXYCODONE-ACETAMINOPHEN Inactiv e GLYDO 2 % EXT GEL apply to painful areas as needed 201 12/10/13 GLYDO 2 % EXT GEL 2974656 LIDOCAINE HCL Inactive AQDHSTYOHX-QDSK-RMHOCBZT 50-325-40 MG ORAL TABS 1 po TID PRN Headaches NSTRMLCYTN-XTEU-VEOHKIFI 50-325-40 MG ORAL TABS 992870 UOMOPDVWDQ-ZKIR-FCJVSQWT Inactive AMOXICILLIN 875 MG TABS 1 tab by mouth twice daily 201 07/18/07 AMOXICILLIN 875 MG TABS 416188 AMOXICILLIN Inactive KEFLEX 500 MG CAP 1 po tid x 10 days KEFLEX 500 MG CAP 206554 CEPHALEXIN Inactive AMOXICILLIN 875 MG TABS 1 tab by mouth twice daily 201 07/19/27 AMOXICILLIN 875 MG TABS 353071 AMOXICILLIN Inactive AMOXICILLIN 875 MG TABS 1 tab by mouth twice daily 201 08/09/13 AMOXICILLIN 875 MG TABS 213165 AMOXICILLIN Inactive CIPRO 500 MG TAB 1 tablet by mouth twice daily CIPRO 500 MG TAB 699945 CIPROFLOXACIN HCL Inactive BACTRIM DS 800-160 MG TAB 1 tab by mouth twice daily 2 BACTRIM DS 800-160 MG TAB 833436 TRIMETHOPRIM-SULFAMETHOXAZOLE Inac tive LEVAQUIN 500 MG TABS 1 PO q day x 7 days LEVAQUIN 500 MG TABS 264828 LEVOFLOXACIN Inactive CLINDAMYCIN HCL 300 MG CAPS 1 po QID x 7 days CLINDAMYCIN HCL 300 MG CAPS 708070 CLINDAMYCIN HCL Inactive AUGMENTIN 875-125 MG TAB 1 tab by mouth twice daily with food 20 22/05/07 AUGMENTIN 875-125 MG TAB 666247 AMOXICILLIN-POT [place] Inactive DIFLUCAN 150 MG TAB 1 qODay x 2 doses DIFLUCAN 150 MG TAB 387304 FLUCONAZOLE Inactive PREDNISONE 20 MG TAB 2 tabs daily for 3 days, 1 t ab daily for 3 days, 1/2 tab daily for 2 days PREDNISONE 20 MG TAB 655864 PREDNISON E Inactive AUGMENTIN 875-125 MG TAB 1 tab by mouth twice daily with food 20 21/10/13 AUGMENTIN 875-125 MG TAB 198346 AMOXICILLIN-POT [place] Inactive HYDROCODONE-ACETAMINOPHEN 5-325 MG TABS 1 tab by mouth every 6 hours as needed PRN Pain HYDROCODONE-ACETAMINOPHEN 5-325 MG TABS 8 28011 HYDROCODONE-ACETAMINOPHEN Inactive PROMETHAZINE HCL 25 MG TABS 1 four times a day as needed for nausea/vomiting PROMETHAZINE HCL 25 MG TABS 191666 PROMETHAZINE HCL Inactive AMOXICILLIN 500 MG CAPS 2 po BID x 10 days AMOXICILLIN 500 MG CAPS 625630 AMOXICILLIN Inactive Advance Directives Directive Description Start Date PERMISSION TO SHARE Immunizations Vaccine Administration Date Value Standard Alf cription Seasonal influenza vaccine, injectable, containing preservative, for > 3 years old (Afluria, FluLaval, Fluzone, Fluvirin, Fluarix, Agriflu(>= 18 yo)) Fluzone (>3 yrs.) [[id number]] Influenza, seasonal, inject able Seasonal influenza vaccine, injectable, preservative free, for > 3 years old (Afluria, FluLaval, Fluzone, Fluvirin, Fluarix, Agriflu(>= 18 yo)) Fluzone preservative free (>3 yrs.) [[id number]] Influenza, seasonal, injectable, preservative free Seasonal influenza vaccine, injectable, containing preservative, for > 3 years old (Afluria, FluLaval, Fluzone, Fluvirin, Fluarix, Agriflu(>= 18 yo)) Fluzone (>3 yrs.) [[id number]] Influenza, seasonal, inject able Seasonal influenza vaccine, injectable, containing preservative, for > 3 years old (Afluria, FluLaval, Fluzone, Fluvirin, Fluarix, Agriflu(>= 18 yo)) Fluzone (>3 yrs.) [[id number]] Influenza, seasonal, inject able dT (Diphtheria and [...] ... - Chemistry sodium, serum 137 mmol/L [phone]/02/24 carbon dioxide, venous blood 26.3 mmol/L 21.0-32 [...] Panel - Chemistry cholesterol, serum 181 mg/dL [phone]/09/01 triglyceride, serum, fasting 341 mg/dL 30-200 HDL [...] negative Encounters Code Encounter Date Provider Facility CPT-60833 Level 3 Est. Patient 16:33:24 CDT Kalpesh goins MD [facility]-18267 Level 3 Est. Patient 08:29:37 CDT Hira muniz [facility] [place]-23085 Level 3 Est. Patient 10:28:25 CDT Hira muniz [facility] [place][note 2] CPT-47198 Level 4 Est. Patient 16:38:26 TANK BUILDER SUPERVISOR Abdirahman Rios MD [facility]-62903 Level 3 Est. Patient 05:31:41 TANK BUILDER SUPERVISOR Kalpesh goins MD [facility] CPT-70276 Level 3 Est. Patient 11:22:02 TANK BUILDER SUPERVISOR Hira muniz [facility] [place][note 2] CPT-42415 Level 3 Est. Patient 21:00:18 TANK BUILDER SUPERVISOR Rajni danielson [facility] CPT-87056 Level 3 Est. Patient 14:15:00 TANK BUILDER SUPERVISOR Kalpesh goins MD [facility] CPT-28216 Level 2 Est. Patient 19:57:52 TANK BUILDER SUPERVISOR Rajni danielson [facility] CPT-17305 Level 3 Est. Patient 16:58:40 TANK BUILDER SUPERVISOR Bj funes MD [facility] CPT-30784 Level 3 Est. Patient 08:51:33 CDT Kalpesh goins MD [facility]-19542 Level 4 Est. Patient 14:14:53 CDT Abdirahman Rios MD [facility] CPT-38393 Level 3 Est. Patient 15:47:40 CDT Kalpesh goins MD [facility] CPT-97103 Level 3 Est. Patient 10:57:26 CDT Abdirahman Rios MD [facility] CPT-06619 Level 3 Est. Patient 14:29:53 CDT Abhinav Galvan MD [facility] CPT-56580 Level 2 Est. Patient 16:33:01 CDT Kalpesh goins MD [facility] CPT-27081 Level 4 Est. Patient 16:44:56 CDT Abdirahman Rios MD [facility] CPT-97666 Level 2 Est. Patient 07:49:32 CDT Kalpesh goins MD [facility] CPT-79205 Level 3 New Patient 15:47:11 TANK BUILDER SUPERVISOR Bj huber MD [facility] CPT-72558 Level 4 Est. Patient 14:37:38 TANK BUILDER SUPERVISOR Abdirahman Rios MD [facility] CPT-76382 Level 2 Est. Patient 13:32:17 TANK BUILDER SUPERVISOR Kalpesh goins MD [facility] CPT-10769 Level 3 Est. Patient 17:32:57 TANK BUILDER SUPERVISOR Edilberto tiwari [facility] CPT-20656 Level 3 Est. Patient 17:22:33 TANK BUILDER SUPERVISOR Edilberto tiwari [facility] CPT-05298 Level 2 Est. Patient 16:57:09 TANK BUILDER SUPERVISOR Kalpesh gonis MD [facility] CPT-76624 Level 3 Est. Patient 14:03:08 TANK BUILDER SUPERVISOR Abdirahman Rios MD [facility] CPT-56632 Level 3 Est. Patient 18:12:34 CDT Shola Wright [facility] CPT-55617 Level 3 Est. Patient 19:34:46 CDT Shola Wright [facility] CPT-65633 Level 3 Est. Patient 14:19:37 CDT Abdirahman Rios MD [facility] CPT-71876 Level 3 Est. Patient 14:11:58 CDT Kalpesh goins MD [facility] CPT-49051 Level 3 Est. Patient 16:50:00 CDT Michelle MERCADO [facility] CPT-28639 Level 3 Est. Patient 17:11:32 TANK BUILDER SUPERVISOR Brandie bates MD PhD [facility] CPT-66566 Level 3 Est. Patient 16:31:47 TANK BUILDER SUPERVISOR Shola Wright [facility] CPT-12932 Level 3 Est. Patient 17:51:10 TANK BUILDER SUPERVISOR Abhinav Galvan MD [facility] CPT-26292 Level 4 Est. Patient 12:54:56 TANK BUILDER SUPERVISOR Kalpesh goins MD [facility]-14435 Level 4 Est. Patient 12:53:56 TANK BUILDER SUPERVISOR Kalpesh goins MD [facility]-34199 Level 3 Est. Patient 17:56:58 CDT Shola Wright [facility] CPT-55151 Level 3 Est. Patient 14:26:20 CDT Janak MCGILL [facility] CPT-49991 Level 3 Est. Patient 09:38:41 CDT Shola Wright [facility] CPT-88456 Level 3 Est. Patient 14:45:26 CDT Edilberto tiwari [facility] CPT-29505 Level 3 Est. Patient 10:51:33 CD[facility] Level 3 Est. Patient 11:57:55 TANK BUILDER SUPERVISOR Shola Wright [facility] CPT-88827 Level 3 Est. Patient 09:53:33 TANK BUILDER SUPERVISOR Edilberto tiwari [facility] CPT-09385 Level 3 Est. Patient 14:42:54 TANK BUILDER SUPERVISOR Abhinav Galvan MD [facility] CPT-85919 Level 3 Est. Patient 15:10:02 CDT Janak MCGILL [facility]-33283 Level 3 Est. Patient 15:20:20 CDT Theo dennis MD [facility] CPT-82663 Level 2 Est. Patient 14:08:57 CDT Kalpesh goins MD [facility] CPT-49587 Level 3 Est. Patient 13:56:19 CDT Abdirahman Rios MD [facility] CPT-49974 Level 3 Est. Patient 13:59:37 CDT Abdirahman Rios MD [facility] CPT-66272 Level 2 Est. Patient 14:44:59 CDT Kalpesh goins MD [facility] CPT-77680 Level 3 Est. Patient 06:06:23 CDT Edilberto tiwari DO [facility] CPT-33872 Level 3 Est. Patient 15:23:54 CDT Abdirahman Rios MD [facility] CPT-88251 Level 3 Est. Patient 15:43:49 CDT Abdirahman Rios MD [facility] CPT-23571 Level 3 Est. Patient 12:46:47 TANK BUILDER SUPERVISOR Abdirahman Rios MD [facility] CPT-27261 Level 3 Est. Patient 08:13:35 TANK BUILDER SUPERVISOR Abdirahman Rios MD [facility] CPT-67294 Level 2 Est. Patient 09:36:42 TANK BUILDER SUPERVISOR Abdirahman Rios MD [facility] CPT-41511 Level 3 Est. Patient 10:56:43 CDT Abdirahman Rios MD [facility] CPT-17696 Level 3 Est. Patient 18:24:52 CDT Abdirahman Rios MD [facility] CPT-00798 Level 3 Est. Patient 13:27:22 CDT Abdirahman Rios MD [facility] Procedures Code Procedure Name Date Entry Date Standard Desc ription CPT-86720 Postop F/U Visit 16:21:51 TANK BUILDER SUPERVISOR CPT-92674 Postop F/U Visit 17:09:41 TANK BUILDER SUPERVISOR CPT-71482 Postop F/U Visit 14:08:43 TANK BUILDER SUPERVISOR CPT-72472 Postop F/U Visit 15:18:16 TANK BUILDER SUPERVISOR CPT-83213 Postop F/U Visit 15:03:49 TANK BUILDER SUPERVISOR CPT-55481 Postop F/U Visit 14:45:23 TANK BUILDER SUPERVISOR CPT-51173 Postop F/U Visit 14:11:03 TANK BUILDER SUPERVISOR CPT-09431 Postop F/U Visit 18:21:21 TANK BUILDER SUPERVISOR CPT-03832 Postop F/U Visit 15:57:12 TANK BUILDER SUPERVISOR CPT-32178 Bladder Instillation 16:58:41 TANK BUILDER SUPERVISOR 6 CPT-57818 Fluzone Quadrivalent Intramuscular Suspe nsion 0.5 ML 15:20:56 TANK BUILDER SUPERVISOR CPT-28796 Immunization Single Admin 15:20:56 TANK BUILDER SUPERVISOR 2014 CPT-57136 Excis pilonidal cyst simple 08:51:34 CDT 20 22/04/20 CPT-65864 Venipuncture Draw Fee 14:27:29 CDT CPT-41928 Postop F/U Visit 15:27:43 CDT CPT-13158 Postop F/U Visit 14:40:59 CDT CPT-28691 Postop F/U Visit 15:02:46 CDT CPT-67732 Postop F/U Visit 11:29:00 TANK BUILDER SUPERVISOR CPT-J0696 Rocephin 1000 mg (Ceftriaxone) 17:22:33 TANK BUILDER SUPERVISOR CPT-12809 Postop F/U Visit 18:41:07 TANK BUILDER SUPERVISOR CPT-64169 Postop F/U Visit 08:19:08 TANK BUILDER SUPERVISOR CPT-66852 Immunization Single Admin 16:41:53 CDT 2013 CPT-35306 Fluzone Quadrivalent Intramuscular Suspe nsion 0.5 ML 16:41:53 CDT CPT-OV Office Visit 16:39:18 CDT CPT-OV Office Visit 16:16:36 CDT CPT-OV Office Visit 15:34:48 CDT CPT-92057 Postop F/U Visit 14:50:12 CDT CPT-32088 Postop F/U Visit 14:41:10 CDT CPT-39410 Venipuncture Draw Fee 11:38:04 TANK BUILDER SUPERVISOR CPT-45985 Postop F/U Visit 19:02:59 TANK BUILDER SUPERVISOR CPT-64521 Postop F/U Visit 12:04:54 TANK BUILDER SUPERVISOR CPT-40239 Administration single or combination vac cine inc oral 15:56:43 CDT CPT-31491 Influenza split virus > age 3 15:56:43 CDT CPT-13532 Hand comp min 3V 14:25:19 CDT CPT-88991 Postop F/U Visit 21:40:51 CDT CPT-91106 Postop F/U Visit 10:58:43 CDT CPT-54185 Administration single or combination vac cine inc oral 12:33:54 TANK BUILDER SUPERVISOR CPT-79566 Influenza Preservative Free split virus >age 3 12:33:54 TANK BUILDER SUPERVISOR CPT-39320 Administration single or combination vac cine inc oral 09:30:51 CDT CPT-60790 Influenza split virus > age 3 09:30:51 CDT CPT-32607 Postop F/U Visit 15:14:53 CDT CPT-03101 Postop F/U Visit 13:50:14 CDT CPT-67162 Postop F/U Visit 13:34:52 CDT CPT-OV Office Visit 16:55:03 CDT CPT-83440 [place] of cervix w bx ECC 13:32:50 CDT 10/19 CPT-J1885 Toradol 60 mg (Ketorolac) 15:31:59 CDT 2011 CPT-J1885 Toradol 60 mg (Ketorolac) 15:23:54 CDT 2011 CPT-24116 Visit 11:34:37 TANK BUILDER SUPERVISOR CPT-45757 Visit 10:52:39 TANK BUILDER SUPERVISOR CPT-92595 Visit 10:12:02 TANK BUILDER SUPERVISOR CPT-34817 Visit 11:22:43 TANK BUILDER SUPERVISOR CPT-95143 Visit 11:24:12 TANK BUILDER SUPERVISOR CPT-55578 Visit 10:47:05 TANK BUILDER SUPERVISOR CPT-OV Office Visit 10:26:16 TANK BUILDER SUPERVISOR CPT-OV Office Visit 15:34:31 TANK BUILDER SUPERVISOR CPT-42892 Visit 10:42:08 TANK BUILDER SUPERVISOR CPT-94866 Visit 10:52:45 TANK BUILDER SUPERVISOR CPT-000 Give Appropriate Flu Vaccine 16:56:41 CDT 2 CPT-07694 Administration single or combination vac cine inc oral 10:33:21 CDT CPT-56916 Influenza split virus > age 3 10:33:21 CDT CPT-31163 Visit 13:23:09 CDT CPT-54135 Visit 18:24:52 CDT CPT-23264 Sono OB comp > 14 weeks 12:07:49 CDT 04/07
--- OUTSIDE RECORDS SUMMARY | 2020-01-18 16:16 | XMS REPORT | Clinical Summary ---
[...] NEC Abscess, perirectal 566 Active Hira roman [employer] WORK[employer] Abscess of anal and rectal regions Hypertriglyceridemia [...] 1 po qHS PRN Insomnia TRAZODONE HCL 96464565750 Active Abdirahman Rios MD Active CYMBALTA 30 MG CPEP 1 cap by mouth daily DULOXE CLEO HCL 87728645818 Active Abdirahman Rios MD Active EMLA 2.5-2.5 % EXT CREA apply to skin lesion q 6 hours, prn 2014 LIDOCAINE-PRILOCAINE 72799485630 No Longer Active Abdirahman Rios MD Active HYDROCODONE-ACETAMINOPHEN 5-325 MG TABS 1 po q6hr PRN pain HYDROCODONE-ACETAMINOPHEN 23512258562 Active Abdirahman Rios MD Active PERCOCET 10-325 MG ORAL TABS 1 every 4 hours as needed OXYCODONE-ACETAMINOPHEN 45803089900 No Longer Active Abdirahman Rios MD Active [id number] 50-325-40 MG ORAL CAPS 1-2 po TID HI N Headache [id number] 20063554785 Active Abdirahman Rios MD Active AUGMENTIN 875-125 MG TAB 1 tab by mouth twice daily with food 20 21/10/13 AMOXICILLIN-POT CLAVULANATE 96492166896 No Longer Active Ursula jasmina Frazell [employer] Active PROAIR HFA 108 (90 BASE) MCG/ACT AERS 2 puff q 4-6 hrs PRN 01/24 ALBUTEROL SULFATE 95986545975 No Longer Active Kalpesh Dong MD Active ALPRAZOLAM 0.5 MG TABS 1 po BID PRN Anxiety ALPRA ZOLAM 55152180019 Active Abdirahman Rios MD Active CYCLOBENZAPRINE HCL 10 MG TABS 1 tablet by mouth three times daily as needed for muscle spasm/pain CYCLOBENZAPRINE HCL 31641184609 Active Abdirahman Rios MD Active PREDNISONE 20 MG TAB 2 tabs daily for 3 days, 1 t ab daily for 3 days, 1/2 tab daily for 2 days PREDNISONE 72385078812 No Longer Active Abdirahman Rios MD Active KEFLEX 500 MG CAP 1 po qid CEPHALEXIN 147213746 20 No Longer Active Kalpesh Dong MD Active PERCOCET 5-325 MG TAB 1 every 6 hours as needed OXYCODONE-ACETAMINOPHEN 35012167036 No Longer Active Shola MCGILL Active LC-5 LIDOCAINE 5 % CREA apply 1 time daily to affected area 2013 LIDOCAINE (ANORECTAL) 34791176184 No Longer Active Hira muniz [employer] Active HYDROCODONE-ACETAMINOPHEN 10-325 MG TABS 1 by mouth ev chaka 8 hours as needed for pain HYDROCODONE-ACETAMINOPHEN 30334193039 No Longer Active Jillina Frazell [employer] Active LORATADINE 10 MG TABS 1 tablet by mouth daily L ORATADINE 31980406122 No Longer Active Jillina Frazell [employer] Active DIFLUCAN 150 MG TAB 1 qODay x 2 doses FLUCONAZO LE 18166468362 No Longer Active Jillina Frazell [employer] Active CYCLOBENZAPRINE HCL 10 MG TABS 1/2 - 1 tab PO tid PRN back p ain, muscle spasm CYCLOBENZAPRINE HCL 88549495567 No Longer Active Karen siri Frazell [employer] WORK[employer] Active AUGMENTIN 875-125 MG TAB 1 tab by mouth twice daily with food 20 22/05/07 AMOXICILLIN-POT CLAVULANATE 82330259710 No Longer Active Loida Rios MD Active MOBIC 15 MG TABS 1 tab daily MELOXICAM 482366667 14 No Longer Active Abdirahman Rios MD Active PERCOCET 7.5-325 MG TABS 1 PO tid PRN pain OXYCODONE-ACETAMINOPHEN 22636782453 No Longer Active Abdirahman Rios MD Active LIDODERM 5 % PTCH One patch to painful area HI N. On for 12 hrs, off for 12 hrs. LIDOCAINE 95108574270 No Longer Active Abdirahman Rios MD Active PERCOCET 7.5-325 MG TABS 1 PO q 8 hrs PRN pain OXYCODONE-ACETAMINOPHEN 32684388836 No Longer Active Shola MCGILL Active HYDROCODONE-ACETAMINOPHEN 7.5-325 MG TABS 1 by mouth e very 6 hours as needed for pain HYDROCODONE-ACETAMINOPHEN 97121709172 No Longer Active Good Julian MD Active CLINDAMYCIN HCL 300 MG CAPS 1 po QID x 7 days CLINDAMYCIN HCL 39925633154 No Longer Active Abdirahman Rios MD Activ e BACTRIM DS 800-160 MG TABS 1 po BID x 7 days 5 SULFAMETHOXAZOLE-TRIMETHOPRIM 09624425330 No Longer Active Abdirahman Rios MD Active ENDOCET 10-325 MG TABS 1 q 6 hr prn OXYCODONE-ACETAMINOPHEN 49035440523 No Longer Active Abdirahman Rios MD Active IBUPROFEN 800 MG TABS 1 tid prn IBUPROFEN 346133 98338 No Longer Active Abdirahman Rios MD Active BACTRIM DS 800-160 MG TABS by mouth twice a day 11/05 SULFAMETHOXAZOLE-TRIMETHOPRIM 71702376493 No Longer Active Good Julian MD Active HYDROCODONE-ACETAMINOPHEN 7.5-325 MG TABS 1 four times a day as needed for pain HYDROCODONE-ACETAMINOPHEN 10784495446 No Longer Activ e Good Julian MD Active KEFLEX 500 MG CAP 1 tab po tid CEPHALEXIN 177389 15766 No Longer Active Hira Moser APRN Active IBUPROFEN 800 MG TAB 1 pill three times daily as needed for pain IBUPROFEN 85330315696 No Longer Active Kalpesh Dong MD Active PROMETHAZINE-CODEINE 6.25-10 MG/5ML SYRP 1 tsp every 6 hrs prn c ough PROMETHAZINE-CODEINE 39718862684 No Longer Active Kalpesh Carr Active HYDROCODONE-ACETAMINOPHEN 5-325 MG TABS 1 tab by mouth every 6 hours as needed HYDROCODONE-ACETAMINOPHEN 09666844968 No Longer Activ e Shola MCGILL Active CEPHALEXIN 500 MG CAPS 1 PO bid x 7 days CEPHAL EXIN 79260938830 No Longer Active Shola MCGILL Active BACTRIM DS 800-160 MG TAB 1 tab by mouth twice daily 2 TRIMETHOPRIM-SULFAMETHOXAZOLE 04398845769 No Longer Active Kalpesh Dong MD Active HYDROCODONE-ACETAMINOPHEN 5-325 MG TABS 1 PO tid PRN pain 5 HYDROCODONE-ACETAMINOPHEN 82047842660 No Longer Active Abhinav Galvan MD Active IMPLANON 68 MG IMPL IMPLANTED IN LEFT ARM ETONO GESTREL 26216654325 No Longer Active Jielias Moser APRN Active AMOXICILLIN 500 MG TABS 2 tabs PO bid x 10 d AM OXICILLIN 35054637147 No Longer Active Kalpesh Dong MD Active LEVAQUIN 500 MG TABS 1 PO q day x 7 days LEVOFL OXACIN 68363204589 No Longer Active Shola MCGILL Active AMITRIPTYLINE HCL 25 MG TAB 1 tab by mouth daily 60 minutes before bedtime AMITRIPTYLINE HCL 20797990513 No Longer Active Shola MCGILL Active LORTAB 5 5-500 MG TABS 1/2 to 1 tablet by mouth go ry 6 hours as needed for pain HYDROCODONE-ACETAMINOPHEN 11084083605 No Longer Active Shola MCGILL Active CEPHALEXIN 500 MG TABS Take one by mouth four times daily, morning, noon, early evening and bedtime. CEPHALEXIN 14627860069 No Long er Active Hira Moser APRN Active TYLENOL/CODEINE #3 300-30 MG TAB 1-2 po q6hr PRN Pain ACETAMINOPHEN-CODEINE 40005467724 No Longer Active Edilberto Marino DO Active PRISTIQ 50 MG [id number] 1 po qd DESVENLAFAXI NE SUCCINATE 24724906671 No Longer Active Edilberto Marino DO Active PENICILLIN V POTASSIUM 500 MG TAB 1 four times a day 2 PENICILLIN V POTASSIUM 53063046303 No Longer Active Edilberto Marino DO Active DOXYCYCLINE HYCLATE 100 MG CAPS Take one (1) tablet by mouth twice a day DOXYCYCLINE HYCLATE 32404029098 No Longer Active Ronnie Galvan MD Active HYDROCODONE-ACETAMINOPHEN 5-325 MG TABS 1 po q 6hr PRN Pain 2011 HYDROCODONE-ACETAMINOPHEN 73355880523 No Longer Active Patri joan Perez RN Active BACTRIM DS 800-160 MG TAB 1 tab by mouth twice daily 2 TRIMETHOPRIM-SULFAMETHOXAZOLE 97077008084 No Longer Active Kalpesh Dong MD Active LORTAB 5 5-500 MG TABS 1/2 to 1 tablet by mouth go ry 4 hours as needed for pain HYDROCODONE-ACETAMINOPHEN 06024305036 No Longer Active Kalpesh Dong MD Active GENERESS FE 0.8-25 MG-MCG CHEW Take one by mouth daily NORETHIN-ETH ESTRADIOL-FE 46845866529 No Longer Active Kalpesh Dong MD Active HYDROCODONE-ACETAMINOPHEN 7.5-500 MG TABS 1-2 every 4 hours as needed HYDROCODONE-ACETAMINOPHEN 14752825304 No Longer Activ e Kalpesh Dong MD Active FERROUS SULFATE 325 (65 FE) MG TABS 1 tablet by mouth twice yung y FERROUS SULFATE 70052991931 No Longer Active Kalpesh Dong MD Active IBUPROFEN 600 MG TAB 1 po q6-8hr PRN IBUPROFEN 87630339025 No Longer Active Kalpesh Dong MD Active SPIRONOLACTONE 25 MG TAB 1 tablet by mouth daily 01/22 SPIRONOLACTONE 91325654949 No Longer Active Kalpesh Dong MD Acti ve HYDROCODONE-ACETAMINOPHEN 7.5-325 MG TABS 1 po QID PRN Pain 2011 HYDROCODONE-ACETAMINOPHEN 82469715458 No Longer Active Kalpesh Dong MD Active CLINDAMYCIN HCL 300 MG CAPS 1 po q6hr x 7 days CLINDAMYCIN HCL 08914921609 No Longer Active Edilberto Marino DO Active PREDNISONE 20 MG TAB 2 tabs daily for 4 days, 1 t ab daily for 4 days, 1/2 tab daily for 4 days PREDNISONE 45952357373 No Longer Active Edilberto Marino DO Active PERCOCET 5-325 MG TABS 1 tablet by mouth every 6 hours as ne eded for pain OXYCODONE-ACETAMINOPHEN 79941773212 No Longer Active Abdirahman Rios MD Active VITAMINS TABS Take one by mouth daily MV & MIN W/FE-FA TABS 11534774479 No Longer Active Abdirahman Rios MD Active LUIS 3-0.02 MG TABS 1 tablet by mouth daily as directed DROSPIRENONE-ETHINYL ESTRADIOL 56929206781 No Longer Active Abdirahman Rios MD Active LORATADINE 10 MG TABS 1 tablet by mouth daily L ORATADINE 04360073355 No Longer Active Kalpesh Dong MD Active HYDROCODONE-ACETAMINOPHEN 5-325 MG TABS 1 po q 6hr PRN Pain 2010 HYDROCODONE-ACETAMINOPHEN 72560444734 No Longer Active Edilberto Marino DO Active BACTRIM DS 800-160 MG TAB 1 tab by mouth twice daily 2 TRIMETHOPRIM-SULFAMETHOXAZOLE 35143459814 No Longer Active Abdirahman Rios MD Active 28-0.8 MG TABS Take one by mouth daily 09/20 VIT-FE FUMARATE-FA 94691399878 No Longer Active Abdirahman Rios MD Active CIPRO 500 MG TAB 1 tablet by mouth twice daily CIPROFLOXACIN HCL 19937269721 No Longer Active Abdirahman Rios MD Active BENADRYL 25 MG CAP 1 po q8hr PRN Congestion DIPHENHYDRAMINE HCL 06824970384 No Longer Active Abdirahman Rios MD Active ZOLOFT 50 MG TAB 1 po qd SERTRALINE HCL 036233 57240 No Longer Active Adbirahman Rios MD Active AMOXICILLIN 875 MG TABS 1 tab by mouth twice daily 201 08/09/13 AMOXICILLIN 85075427618 No Longer Active Abdirahman Rios MD Activ e AMOXICILLIN 875 MG TABS 1 tab by mouth twice daily 201 07/19/27 AMOXICILLIN 70933857780 No Longer Active Abdirahman Rios MD Activ e BACTRIM DS 800-160 MG TAB 2 tab by mouth twice daily 2 TRIMETHOPRIM-SULFAMETHOXAZOLE 83520082842 No Longer Active Abdirahman Rios MD Active KEFLEX 500 MG CAP 1 po tid x 10 days CEPHALEXIN 85788670743 No Longer Active Abdirahman Rios MD Active AMOXICILLIN 875 MG TABS 1 tab by mouth twice daily 201 07/18/07 AMOXICILLIN 86048284718 No Longer Active Abdirahman Rios MD Activ e BACTRIM DS 800-160 MG TAB 2 tab by mouth twice daily 2 BACTRIM DS 800-160 MG TAB TRIMETHOPRIM-SULFAMETHOXAZOLE Inactive ZOLOFT 50 MG TAB 1 po qd ZOLOFT 50 MG TAB 3129 41 SERTRALINE HCL Inactive BENADRYL 25 MG CAP 1 po q8hr PRN Congestion BENADRYL 25 MG CAP 9671131 DIPHENHYDRAMINE HCL Inactive 28-0.8 MG TABS Take one by mouth daily 09/20 28-0.8 MG TABS VIT-FE FUMARATE-FA Inactive HYDROCODONE-ACETAMINOPHEN 5-325 MG TABS 1 po q 6hr PRN Pain 2010 HYDROCODONE-ACETAMINOPHEN 5-325 MG TABS 785081 HYDROCODONE-ACETAMINOPHEN Inactive LORATADINE 10 MG TABS 1 tablet by mouth daily LORATADINE 10 MG TABS 855710 LORATADINE Inactive LUIS 3-0.02 MG TABS 1 tablet by mouth daily as directed LUIS 3-0.02 MG TABS DROSPIRENONE-ETHINYL ESTRADIOL Inactive VITAMINS TABS Take one by mouth daily VITAMINS TABS MV & MIN W/FE-FA TABS Inactive PERCOCET 5-325 MG TABS 1 tablet by mouth every 6 hours as ne eded for pain PERCOCET 5-325 MG TABS 7681654 OXYCODONE-ACETAMIN OPHEN Inactive PREDNISONE 20 MG TAB 2 tabs daily for 4 days, 1 t ab daily for 4 days, 1/2 tab daily for 4 days PREDNISONE 20 MG TAB 658967 PREDNISON E Inactive CLINDAMYCIN HCL 300 MG CAPS 1 po q6hr x 7 days CLINDAMYCIN HCL 300 MG CAPS 311079 CLINDAMYCIN HCL Inactive HYDROCODONE-ACETAMINOPHEN 7.5-325 MG TABS 1 po QID PRN Pain 2011 HYDROCODONE-ACETAMINOPHEN 7.5-325 MG TABS 596013 HYDROCODONE-ACETAMINOPHEN Inactive SPIRONOLACTONE 25 MG TAB 1 tablet by mouth daily 01/22 SPIRONOLACTONE 25 MG TAB 294705 SPIRONOLACTONE Inactive IBUPROFEN 600 MG TAB 1 po q6-8hr PRN IBUPROFEN 600 MG TAB 694148 IBUPROFEN Inactive FERROUS SULFATE 325 (65 FE) MG TABS 1 tablet by mouth twice yung y FERROUS SULFATE 325 (65 FE) MG TABS 440522 FERROUS SULF ATE Inactive HYDROCODONE-ACETAMINOPHEN 7.5-500 MG [...] PRN Pain 2011 HYDROCODONE-ACETAMINOPHEN 5-325 MG TABS 661617 HYDROCODONE-ACETAMINOPHEN Inactive DOXYCYCLINE HYCLATE 100 MG CAPS Take one (1) tablet by mouth twice a day DOXYCYCLINE HYCLATE 100 MG CAPS 855897 DOXYCYCLINE HYCLATE Inactive PENICILLIN V POTASSIUM 500 MG TAB 1 four times a day 2 PENICILLIN V POTASSIUM 500 MG TAB 012821 PENICILLIN V POTASSIUM Siri ctive PRISTIQ 50 MG [id number] 1 po qd PRISTIQ 50 MG [id number] DESVENLAFAXINE SUCCINATE Inactive TYLENOL/CODEINE #3 300-30 MG TAB 1-2 po q6hr PRN Pain TYLENOL/CODEINE #3 300-30 MG TAB 167768 ACETAMINOPHEN-CODEINE Inact krishna CEPHALEXIN 500 MG TABS Take one by mouth four times daily, morning, noon, early evening and bedtime. CEPHALEXIN 500 MG TABS 809795 CEPHALEXIN Inactive LORTAB 5 5-500 MG TABS 1/2 to 1 tablet by mouth go ry 6 hours as needed for pain LORTAB 5 5-500 MG TABS HYDROCODONE-A CETAMINOPHEN Inactive AMITRIPTYLINE HCL 25 MG TAB 1 tab by mouth daily 60 minutes before bedtime AMITRIPTYLINE HCL 25 MG TAB 435315 AMITRIPTYLINE HCL Inactive AMOXICILLIN 500 MG TABS 2 tabs PO bid x 10 d 7 AMOXICILLIN 500 MG TABS 441472 AMOXICILLIN Inactive IMPLANON 68 MG IMPL IMPLANTED IN LEFT ARM IMPLANON 68 MG IMPL ETONOGESTREL Inactive HYDROCODONE-ACETAMINOPHEN 5-325 MG TABS 1 PO tid PRN pain 5 HYDROCODONE-ACETAMINOPHEN 5-325 MG TABS 246390 HYDROCODONE-ACETAMIN OPHEN Inactive BACTRIM DS 800-160 MG TAB 1 tab by mouth twice daily 2 BACTRIM DS 800-160 MG TAB TRIMETHOPRIM-SULFAMETHOXAZOLE Inac tive CEPHALEXIN 500 MG CAPS 1 PO bid x 7 days CEPHALEXIN 500 MG CAPS 250968 CEPHALEXIN Inactive HYDROCODONE-ACETAMINOPHEN 5-325 MG TABS 1 tab by mouth every 6 hours as needed HYDROCODONE-ACETAMINOPHEN 5-325 MG TABS 172529 HYDROCODONE-ACETAMINOPHEN Inactive PROMETHAZINE-CODEINE 6.25-10 MG/5ML SYRP 1 tsp every 6 hrs prn c ough PROMETHAZINE-CODEINE 6.25-10 MG/5ML SYRP 328779 PROMETH AZINE-CODEINE Inactive IBUPROFEN 800 MG TAB 1 pill three times daily as needed for pain IBUPROFEN 800 MG TAB 303483 IBUPROFEN Inactive KEFLEX 500 MG CAP 1 tab po tid KEFLEX 500 MG CAP 001356 CEPHALEXIN Inactive HYDROCODONE-ACETAMINOPHEN 7.5-325 MG TABS 1 four times a day as needed for pain HYDROCODONE-ACETAMINOPHEN 7.5-325 MG TABS 159274 HYDROCODONE-ACETAMINOPHEN Inactive BACTRIM DS 800-160 MG TABS by mouth twice a day 11/05 BACTRIM DS 800-160 MG TABS SULFAMETHOXAZOLE-TRIMETHOPRIM Inactive IBUPROFEN 800 MG TABS 1 tid prn IBUPROFEN 800 MG TABS 414845 IBUPROFEN Inactive ENDOCET 10-325 MG TABS 1 q 6 hr prn ENDOC ET 10-325 MG TABS 4917966 OXYCODONE-ACETAMINOPHEN Inactive HYDROCODONE-ACETAMINOPHEN 7.5-325 MG TABS 1 by mouth e very 6 hours as needed for pain HYDROCODONE-ACETAMINOPHEN 7.5-325 MG TABS 819824 HYDROCODONE-ACETAMINOPHEN Inactive PERCOCET 7.5-325 MG TABS 1 PO q 8 hrs PRN pain PERCOCET 7.5-325 MG TABS 8783011 OXYCODONE-ACETAMINOPHEN Inactive LIDODERM 5 % PTCH One patch to painful area HI N. On for 12 hrs, off for 12 hrs. LIDODERM 5 % PTCH 0440268 LIDOCAINE Inactiv e PERCOCET 7.5-325 MG TABS 1 PO tid PRN pain PERCOCET 7.5- 325 MG TABS 0801702 OXYCODONE-ACETAMINOPHEN Inactive MOBIC 15 MG TABS 1 tab daily MOBIC 15 MG TABS 15 2695 MELOXICAM Inactive CYCLOBENZAPRINE HCL 10 MG TABS 1/2 - 1 tab PO tid PRN back p ain, muscle spasm CYCLOBENZAPRINE HCL 10 MG TABS 526077 CYCLOBENZA JOSEPH HCL Inactive LORATADINE 10 MG TABS 1 tablet by mouth daily LORATADINE 10 MG TABS 179367 LORATADINE Inactive HYDROCODONE-ACETAMINOPHEN 10-325 MG TABS 1 by mouth ev chaka 8 hours as needed for pain HYDROCODONE-ACETAMINOPHEN 10-325 MG TABS 199750 HYDROCODONE-ACETAMINOPHEN Inactive LC-5 LIDOCAINE 5 % CREA apply 1 time daily to affected area 2013 LC-5 LIDOCAINE 5 % CREA LIDOCAINE (ANORECTAL) In active PERCOCET 5-325 MG TAB 1 every 6 hours as needed PERCOCET 5-325 MG TAB 0305407 OXYCODONE-ACETAMINOPHEN Inactive KEFLEX 500 MG CAP 1 po qid KEFLEX 500 MG CAP 30 9114 CEPHALEXIN Inactive PROAIR HFA 108 (90 BASE) MCG/ACT AERS 2 puff q 4-6 hrs PRN 01/24 PROAIR HFA 108 (90 BASE) MCG/ACT AERS ALBUTEROL SULFATE Inactive PERCOCET 10-325 MG ORAL TABS 1 every 4 hours as needed PERCOCET 10-325 MG ORAL TABS 5432083 OXYCODONE-ACETAMINOPHEN Inactiv e EMLA 2.5-2.5 % EXT CREA apply to skin lesion q 6 hours, prn 2014 EMLA 2.5-2.5 % EXT CREA 097293 LIDOCAINE-PRILOCAINE [place] ct[place] AMOXICILLIN 875 MG TABS 1 tab by mouth twice daily 201 07/18/07 AMOXICILLIN 875 MG TABS 057334 AMOXICILLIN Inactive KEFLEX 500 MG CAP 1 po tid x 10 days KEFLEX 500 MG CAP 129765 CEPHALEXIN Inactive AMOXICILLIN 875 MG TABS 1 tab by mouth twice daily 201 07/19/27 AMOXICILLIN 875 MG TABS 832768 AMOXICILLIN Inactive AMOXICILLIN 875 MG TABS 1 tab by mouth twice daily 201 08/09/13 AMOXICILLIN 875 MG TABS 015310 AMOXICILLIN Inactive CIPRO 500 MG TAB 1 tablet by mouth twice daily CIPRO 500 MG TAB 562367 CIPROFLOXACIN HCL Inactive BACTRIM DS 800-160 MG TAB 1 tab by mouth twice daily 2 BACTRIM DS 800-160 MG TAB TRIMETHOPRIM-SULFAMETHOXAZOLE Inac tive LEVAQUIN 500 MG TABS 1 PO q day x 7 days LEVAQUIN 500 MG TABS 878956 LEVOFLOXACIN Inactive CLINDAMYCIN HCL 300 MG CAPS 1 po QID x 7 days CLINDAMYCIN HCL 300 MG CAPS 355542 CLINDAMYCIN HCL Inactive AUGMENTIN 875-125 MG TAB 1 tab by mouth twice daily with food 20 22/05/07 AUGMENTIN 875-125 MG TAB 395833 AMOXICILLIN-POT CLAVULA [place] Inactive DIFLUCAN 150 MG TAB 1 qODay x 2 doses DIFLUCAN 150 MG TAB 376517 FLUCONAZOLE Inactive PREDNISONE 20 MG TAB 2 tabs daily for 3 days, 1 t ab daily for 3 days, 1/2 tab daily for 2 days PREDNISONE 20 MG TAB 840790 PREDNISON E Inactive AUGMENTIN 875-125 MG TAB 1 tab by mouth twice daily with food 20 21/10/13 AUGMENTIN 875-125 MG TAB 926793 AMOXICILLIN-POT CLAVULA [place] Inactive Advance Directives Directive Description Start Date PERMISSION TO SHARE Immunizations Vaccine Administration Date Value Standard Alf cription Seasonal influenza vaccine, injectable, containing preservative, for > 3 years old (Afluria, FluLaval, Fluzone, Fluvirin, Fluarix, Agriflu(>= 18 yo)) Fluzone (>3 yrs.) [[id number]] Influenza, seasonal, inject able Seasonal influenza vaccine, injectable, preservative free, for > 3 years old (Afluria, FluLaval, Fluzone, Fluvirin, Fluarix, Agriflu(>= 18 yo)) Fluzone preservative free (>3 yrs.) [[id number]] Influenza, seasonal, injectable, preservative free Seasonal influenza vaccine, injectable, containing preservative, for > 3 years old (Afluria, FluLaval, Fluzone, Fluvirin, Fluarix, Agriflu(>= 18 yo)) Fluzone (>3 yrs.) [[id number]] Influenza, seasonal, inject able Seasonal influenza vaccine, injectable, containing preservative, for > 3 years old (Afluria, FluLaval, Fluzone, Fluvirin, Fluarix, Agriflu(>= 18 yo)) Fluzone (>3 yrs.) [[id number]] Influenza, seasonal, inject able dT (Diphtheria and [...] pressure, diastolic - 8462-4 92 mm[Hg] BP riebiro blood pressure, systolic - 8480-6 147 mm[Hg] [...] Panel - Chemistry sodium, serum 142 mmol/L 638-053 8245/05/12 potassium, serum 4.8 mmol/L 3.5-5.2 chloride, serum [...] Panel - Chemistry cholesterol, serum 165 mg/dL 344-478 4703/05/12 triglyceride, serum, fasting 524 mg/dL 30-200 HDL [...] negative Encounters Code Encounter Date Provider Facility CPT-15552 Level 4 Est. Patient 16:44:56 CDT Abdirahman Rios MD [facility] CPT-14820 Level 2 Est. Patient 07:49:32 CDT Kalpesh goins MD [facility] CPT-55879 Level 3 New Patient 15:47:11 CAN RECONDITIONER Bj huber MD [facility] CPT-30379 Level 4 Est. Patient 14:37:38 CAN RECONDITIONER Abdirahman Rios MD [facility] CPT-38879 Level 2 Est. Patient 13:32:17 CAN RECONDITIONER Kalpesh goins MD [facility] CPT-16923 Level 3 Est. Patient 17:32:57 CAN RECONDITIONER Edilberto tiwari DO [facility] CPT-66267 Level 3 Est. Patient 17:22:33 CAN RECONDITIONER Edilberto tiwari [facility] CPT-39649 Level 2 Est. Patient 16:57:09 CAN RECONDITIONER Kalpesh goins MD [facility]-61079 Level 3 Est. Patient 14:03:08 CAN RECONDITIONER Abdirahman Rios MD [facility] CPT-59489 Level 3 Est. Patient 18:12:34 CDT Shola Wright [facility] CPT-82170 Level 3 Est. Patient 19:34:46 CDT Shola Wrihgt [facility] CPT-23482 Level 3 Est. Patient 14:19:37 CDT Abdirahman Rios MD [facility] CPT-58287 Level 3 Est. Patient 14:11:58 CDT Kalpesh goins MD [facility] CPT-20382 Level 3 Est. Patient 16:50:00 CDT Michelle MERCADO [facility] CPT-32274 Level 3 Est. Patient 17:11:32 CAN RECONDITIONER Brandie bates MD PhD [facility] CPT-38568 Level 3 Est. Patient 16:31:47 CAN RECONDITIONER Shloa Houghsabi [facility] CPT-15477 Level 3 Est. Patient 17:51:10 CAN RECONDITIONER Abhinav Galvan MD [facility] CPT-24749 Level 4 Est. Patient 12:54:56 CAN RECONDITIONER Kalpesh goins MD [facility] CPT-87040 Level 4 Est. Patient 12:53:56 CAN RECONDITIONER Kalpesh goins MD [facility] CPT-79647 Level 3 Est. Patient 17:56:58 CDT Shola Houghsabi [facility] CPT-20490 Level 3 Est. Patient 14:26:20 CDT Janak butcher [facility] CPT-25671 Level 3 Est. Patient 09:38:41 CDT Shola Houghsabi [facility] CPT-17709 Level 3 Est. Patient 14:45:26 CDT Edilberto tiwari DO [facility] CPT-34051 Level 3 Est. Patient 10:51:33 [facility] Level 3 Est. Patient 11:57:55 CAN RECONDITIONER Shola MCGILL [facility] CPT-15228 Level 3 Est. Patient 09:53:33 CAN RECONDITIONER Edilberto tiwari [facility] CPT-77119 Level 3 Est. Patient 14:42:54 CAN RECONDITIONER Abhinav Galvan MD [facility] CPT-56046 Level 3 Est. Patient 15:10:02 CDT Janak butcher [facility] CPT-60652 Level 3 Est. Patient 15:20:20 CDT Theo dennis MD [facility]-11018 Level 2 Est. Patient 14:08:57 CDT Kalpesh goins MD [facility] CPT-04370 Level 3 Est. Patient 13:56:19 CDT Abdirahman Rios MD [facility] CPT-72695 Level 3 Est. Patient 13:59:37 CDT Abdirahman Rios MD [facility] CPT-28763 Level 2 Est. Patient 14:44:59 CDT Kalpesh goins MD [facility] CPT-67701 Level 3 Est. Patient 06:06:23 CDT Edilberto tiwari [facility] CPT-03527 Level 3 Est. Patient 15:23:54 CDT Abdirahman Rios MD [facility] CPT-01473 Level 3 Est. Patient 15:43:49 CDT Abdirahman Rios MD [facility] CPT-10775 Level 3 Est. Patient 12:46:47 CAN RECONDITIONER Abdirahman Rios MD [facility] CPT-60810 Level 3 Est. Patient 08:13:35 CAN RECONDITIONER Abdirahman Rios MD [facility] CPT-05486 Level 2 Est. Patient 09:36:42 CAN RECONDITIONER Abdirahman Rios MD [facility] CPT-32588 Level 3 Est. Patient 10:56:43 CDT Abdirahman Rios MD [facility] CPT-74793 Level 3 Est. Patient 18:24:52 CDT Abdirahman Rios MD [facility] CPT-32449 Level 3 Est. Patient 13:27:22 CDT Abdirahman Rios MD [facility] Procedures Code Procedure Name Date Entry Date Standard Desc ription CPT-51988 Postop F/U Visit 14:40:59 CDT CPT-71260 Postop F/U Visit 15:02:46 CDT CPT-42288 Postop F/U Visit 11:29:00 CAN RECONDITIONER CPT-J0696 Rocephin 1000 mg (Ceftriaxone) 17:22:33 CAN RECONDITIONER CPT-81519 Postop F/U Visit 18:41:07 CAN RECONDITIONER CPT-27975 Postop F/U Visit 08:19:08 CAN RECONDITIONER CPT-76975 Immunization Single Admin 16:41:53 CDT 2013 CPT-98865 Fluzone Quadrivalent Intramuscular Suspe nsion 0.5 ML 16:41:53 CDT CPT-OV Office Visit 16:39:18 CDT CPT-OV Office Visit 16:16:36 CDT CPT-OV Office Visit 15:34:48 CDT CPT-20360 Postop F/U Visit 14:50:12 CDT CPT-03874 Postop F/U Visit 14:41:10 CDT CPT-60597 Venipuncture Draw Fee 11:38:04 CAN RECONDITIONER CPT-79841 Postop F/U Visit 19:02:59 CAN RECONDITIONER CPT-93009 Postop F/U Visit 12:04:54 CAN RECONDITIONER CPT-23814 Administration single or combination vac cine inc oral 15:56:43 CDT CPT-41248 Influenza split virus > age 3 15:56:43 CDT CPT-47910 Hand comp min 3V 14:25:19 CDT CPT-26553 Postop F/U Visit 21:40:51 CDT CPT-49537 Postop F/U Visit 10:58:43 CDT CPT-41738 Administration single or combination vac cine inc oral 12:33:54 CAN RECONDITIONER CPT-26662 Influenza Preservative Free split virus >age 3 12:33:54 CAN RECONDITIONER CPT-70596 Administration single or combination vac cine inc oral 09:30:51 CDT CPT-70614 Influenza split virus > age 3 09:30:51 CDT CPT-46961 Postop F/U Visit 15:14:53 CDT CPT-77882 Postop F/U Visit 13:50:14 CDT CPT-29082 Postop F/U Visit 13:34:52 CDT CPT-OV Office Visit 16:55:03 CDT CPT-81263 [place] of cervix w bx ECC 13:32:50 CDT 10/19 CPT-J1885 Toradol 60 mg (Ketorolac) 15:31:59 CDT 2011 CPT-J1885 Toradol 60 mg (Ketorolac) 15:23:54 CDT 2011 CPT-09912 Visit 11:34:37 CAN RECONDITIONER CPT-81518 Visit 10:52:39 CAN RECONDITIONER CPT-58880 Visit 10:12:02 CAN RECONDITIONER CPT-41423 Visit 11:22:43 CAN RECONDITIONER CPT-67635 Visit 11:24:12 CAN RECONDITIONER CPT-65981 Visit 10:47:05 CAN RECONDITIONER CPT-OV Office Visit 10:26:16 CAN RECONDITIONER CPT-OV Office Visit 15:34:31 CAN RECONDITIONER CPT-27293 Visit 10:42:08 CAN RECONDITIONER CPT-73232 Visit 10:52:45 CAN RECONDITIONER CPT-000 Give Appropriate Flu Vaccine 16:56:41 CDT 2 CPT-12397 Administration single or combination vac cine inc oral 10:33:21 CDT CPT-47263 Influenza split virus > age 3 10:33:21 CDT CPT-27623 Visit 13:23:09 CDT CPT-57753 Visit 18:24:52 CDT CPT-29841 Sono OB comp > 14 weeks 12:07:49 CDT 04/07
--- OUTSIDE RECORDS SUMMARY | 2020-01-18 16:17 | XMS REPORT | Clinical Summary ---
[...] diabetes mellitus Pelvic pain 789.09 Resolved Abdirahman Rois MD Abdominal pain, other specified site; multiple [...] SKIN&SUBCUT TISSUE NEC V58.77 07/28 Resolved Abdirahman iRos MD Aftercare following surgery of the skin [...] Good collier MD Hypoglycemia ICD-251.2 Inactive Abdirahman Riso MD Swelling of limb ICD-729.81 Inactive Good Julian MD Hand pain, right ICD-729.5 Inactive Good Julian MD Pilonidal cyst ICD-685.1 Inactive Good Matos MD Aftercare following surgery of the skin and subcutaneous tis barden, NEC ICD-V58.77 Inactive Good Julian MD Open [...] Generic Name NDC Status Provider Patient Instruction [id number] 50-325-40 MG ORAL TABS 1 po TID PRN Headaches [id number] 31178268366 Active Abdirahman owen MD Active CHANTIX STARTING MONTH MARGARITA 0.5 MG X 11 & 1 MG X 42 TAB S 0.5mg daily for 3 days, then 0.5mg BID for 4 days, then 1mg BID VARENICL INE TARTRATE 96912839170 Active Abdirahman Rios MD Active AMOXICILLIN 500 MG CAPS 2 po BID x 10 days AMOX ICILLIN 50042765090 Active Abdirahman Rios MD Active PROMETHAZINE HCL 25 MG TABS 1 four times a day as needed for nausea/vomiting PROMETHAZINE HCL 40265365868 No Longer Active Abdirahman Rios MD Active LC-4 LIDOCAINE 4 % EXT CREA apply q 6 hours, prn 08/03 LIDOCAINE 50525733851 No Longer Active Kalpesh Dong MD Active PERCOCET 10-325 MG TABS 1 tablet every 8 hours as needed for antonia n OXYCODONE-ACETAMINOPHEN 04449613427 No Longer Active Kalpesh Dong MD Active HYDROCODONE-ACETAMINOPHEN 5-325 MG TABS 1 tab by mouth every 6 hours as needed for pain HYDROCODONE-ACETAMINOPHEN 55321684118 No Longer Active Kalpesh Dong MD Active PERCOCET 10-325 MG ORAL TABS 1 every 4 hous as needed OXYCODONE-ACETAMINOPHEN 29454356460 Active Hira Moser APRN Active GLYDO 2 % EXT GEL apply to painful areas as needed LIDOCAINE HCL 21480693999 Active Kalpesh Dong MD Active LC-4 LIDOCAINE 4 % EXT CREA apply to painful area every 12 h ours or as needed LIDOCAINE 51473917681 Active Kalpesh Dong MD Active AUGMENTIN 875-125 MG TAB 1 tab by mouth twice daily with food 20 23/05/16 AMOXICILLIN-POT CLAVULANATE 05968524903 No Longer Active Lizeth hi [employer] REGISTERED SALES ASSISTANT 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 FLUTICASONE PROPIONATE 08191598040 No Longer Ac tive Rajni [employer] REGISTERED SALES ASSISTANT Active PERCOCET 10-325 MG ORAL TABS take 1 tab by mouth q 4hours as needed for pain OXYCODONE-ACETAMINOPHEN 12869178381 No Longer Active Rajni [employer] REGISTERED SALES ASSISTANT Active PERCOCET 10-325 MG ORAL TABS one every 6 hours prn pain OXYCODONE-ACETAMINOPHEN 12667169789 No Longer Active Rajni [employer] REGISTERED SALES ASSISTANT Active IBUPROFEN 800 MG TABS 1 tab po tid, with food I BUPROFEN 36418593290 Active Hira Moser REGISTERED SALES ASSISTANT Active DICLOFENAC SODIUM 50 MG TBEC 1 tablet by mouth four times da tom PRN Pain DICLOFENAC SODIUM 40905187726 No Longer Active Rajni [employer] REGISTERED SALES ASSISTANT Active VIIBRYD 10 & 20 & 40 MG KIT 1 po qd as directed 07/24 VILAZODONE HCL 20652938093 No Longer Active Rajni [employer] REGISTERED SALES ASSISTANT Active ONDANSETRON 4 MG TBDP 1 q4h PRN nausea ONDANSET KELBY 15231761661 No Longer Active Rajni [employer] REGISTERED SALES ASSISTANT Active PERCOCET 10-325 MG TABS 1 tablet every 8 hours as needed for antonia n OXYCODONE-ACETAMINOPHEN 50922195838 No Longer Active Rjani [employer] REGISTERED SALES ASSISTANT Active HYDROCODONE-ACETAMINOPHEN 5-325 MG TABS 1 po TID PRN Pain 9 HYDROCODONE-ACETAMINOPHEN 31875058519 No Longer Active Abdirahman Rios MD Active [id number] 50-325-40 MG ORAL CAPS 1-2 po TID OK N Headache [id number] 67841537378 No Longer Act krishna Kalpesh Dong MD Active ALPRAZOLAM 0.5 MG TABS 1 po BID PRN Anxiety ALP RAZOLAM 49958232370 No Longer Active Kalpesh Dong MD Active TRAZODONE HCL 100 MG TAB 0.5 to 1 po qHS PRN Insomnia TRAZODONE HCL 52355107810 No Longer Active Kalpesh Dong MD Activ e HYDROCODONE-ACETAMINOPHEN 5-325 MG TABS 1 po q6hr PRN Pain 04/09 HYDROCODONE-ACETAMINOPHEN 50683243323 No Longer Active Kalpesh Dong MD Active CYMBALTA 30 MG CPEP 1 cap by mouth daily DULOXE CLEO HCL 41662196942 No Longer Active Abdirahman Rios MD Active IBUPROFEN 600 MG ORAL TABS 1 by mouth twice a day 2014 IBUPROFEN 51141185747 No Longer Active Abdirahman Rios MD Activ e PERCOCET 5-325 MG TAB 1 tab po q 6 hours, prn severe pain 1 OXYCODONE-ACETAMINOPHEN 60960324720 No Longer Active Abdirahman Rios MD Active SPRINTEC 28 0.25-35 MG-MCG TABS 1 pill by mouth daily for bi rth control NORGESTIMATE-ETH ESTRADIOL 15972176006 No Longer Acti ve Hira Moser REGISTERED SALES ASSISTANT Active CYCLOBENZAPRINE HCL 10 MG TABS 1 tablet by mouth three times daily as needed for muscle spasm/pain CYCLOBENZAPRINE HCL 16995893317 No Longer Active Matthewllina Shanti REGISTERED SALES ASSISTANT Active HYDROCODONE-ACETAMINOPHEN 5-325 MG TABS 1 po q6hr PRN Pain 03/09 HYDROCODONE-ACETAMINOPHEN 17345879164 No Longer Active Hira Peraza l REGISTERED SALES ASSISTANT Active AUGMENTIN 500-125 MG ORAL TABS 1 by mouth twice a day AMOXICILLIN-POT CLAVULANATE 04992716967 No Longer Active Hira Perazal REGISTERED SALES ASSISTANT Active DICLOFENAC SODIUM 50 MG TBEC 1 tablet by mouth four times da tom PRN Pain DICLOFENAC SODIUM 21345155613 No Longer Active Karenin a Karmenl REGISTERED SALES ASSISTANT Active PROMETHAZINE HCL 25 MG TABS 1 four times a day as needed for nausea/vomiting PROMETHAZINE HCL 82260590351 No Longer Active Abdirahman Rios MD Active HYDROCODONE-ACETAMINOPHEN 5-325 MG TABS 1 tab by mouth every 6 hours as needed PRN Pain HYDROCODONE-ACETAMINOPHEN 08895782662 No Longer Active Abdirahman Rios MD Active GEMFIBROZIL 600 MG TABS 1 po BID GEMFIBROZIL 85025823 005 Active Abdirahman Rios MD Active PERCOCET 5-325 MG ORAL TABS 1 every 6 hours as needed OXYCODONE-ACETAMINOPHEN 93199043899 No Longer Active Abdirahman Rios MD Active PERCOCET 5-325 MG TAB 1 tab po q 6 -8 hours, prn for severe pain OXYCODONE-ACETAMINOPHEN 93030349003 No Longer Active Abdirahman Rios MD Active HYDROCODONE-ACETAMINOPHEN 5-325 MG TABS 1 po q6hr PRN pain 06/30 HYDROCODONE-ACETAMINOPHEN 39203113636 No Longer Active Hira Peraza l REGISTERED SALES ASSISTANT Active GLUCOPHAGE 500 MG ORAL TABS one by mouth 3 times a day METFORMIN HCL 63055353902 No Longer Active Hira Perazal REGISTERED SALES ASSISTANT Ac tive PERCOCET 10-325 MG TABS 1 tab by mouth every 6 hours , use sparingly for severe pain OXYCODONE-ACETAMINOPHEN 63401318299 No Longer A ctive Abdirahman Rios MD Active EMLA 2.5-2.5 % EXT CREA apply to skin lesion q 6 hours, prn 2014 LIDOCAINE-PRILOCAINE 96260791855 No Longer Active Abdirahman Rios MD Active PERCOCET 10-325 MG ORAL TABS 1 every 4 hours as needed OXYCODONE-ACETAMINOPHEN 89849074450 No Longer Active Abdirahman Rios MD Active AUGMENTIN 875-125 MG TAB 1 tab by mouth twice daily with food 20 21/10/13 AMOXICILLIN-POT CLAVULANATE 36557315690 No Longer Active Ursula jasmina Frazell REGISTERED SALES ASSISTANT Active PROAIR HFA 108 (90 BASE) MCG/ACT AERS 2 puff q 4-6 hrs PRN 01/24 ALBUTEROL SULFATE 05748216834 No Longer Active Kalpesh Dong MD Active PREDNISONE 20 MG TAB 2 tabs daily for 3 days, 1 t ab daily for 3 days, 1/2 tab daily for 2 days PREDNISONE 40026920490 No Longer Active Abdirahman Rios MD Active KEFLEX 500 MG CAP 1 po qid CEPHALEXIN 389264013 20 No Longer Active Kalpesh Dong MD Active PERCOCET 5-325 MG TAB 1 every 6 hours as needed OXYCODONE-ACETAMINOPHEN 88197231323 No Longer Active Shola MCGILL Active LC-5 LIDOCAINE 5 % CREA apply 1 time daily to affected area 2013 LIDOCAINE (ANORECTAL) 81832315576 No Longer Active Hira muniz REGISTERED SALES ASSISTANT Active HYDROCODONE-ACETAMINOPHEN 10-325 MG TABS 1 by mouth ev chaka 8 hours as needed for pain HYDROCODONE-ACETAMINOPHEN 54242603577 No Longer Active Jillina Frazell REGISTERED SALES ASSISTANT Active LORATADINE 10 MG TABS 1 tablet by mouth daily L ORATADINE 13562786421 No Longer Active Jillina Frazell REGISTERED SALES ASSISTANT Active DIFLUCAN 150 MG TAB 1 qODay x 2 doses FLUCONAZO LE 36921728400 No Longer Active Jillina Frazell REGISTERED SALES ASSISTANT Active CYCLOBENZAPRINE HCL 10 MG TABS 1/2 - 1 tab PO tid PRN back p ain, muscle spasm CYCLOBENZAPRINE HCL 81600606949 No Longer Active Karen Moser APRN Active AUGMENTIN 875-125 MG TAB 1 tab by mouth twice daily with food 20 22/05/07 AMOXICILLIN-POT CLAVULANATE 10856319351 No Longer Active Loida Rios MD Active MOBIC 15 MG TABS 1 tab daily MELOXICAM 342502001 14 No Longer Active Abdirahman Rios MD Active PERCOCET 7.5-325 MG TABS 1 PO tid PRN pain OXYCODONE-ACETAMINOPHEN 31453100851 No Longer Active Abdirahman Rios MD Active LIDODERM 5 % PTCH One patch to painful area [place] N. On for 12 hrs, off for 12 hrs. LIDOCAINE 59981407906 No Longer Active Abdirahman Rios MD Active PERCOCET 7.5-325 MG TABS 1 PO q 8 hrs PRN pain OXYCODONE-ACETAMINOPHEN 04351035809 No Longer Active Shola MCGILL Active HYDROCODONE-ACETAMINOPHEN 7.5-325 MG TABS 1 by mouth e very 6 hours as needed for pain HYDROCODONE-ACETAMINOPHEN 54737338118 No Longer Active Good Julian MD Active CLINDAMYCIN HCL 300 MG CAPS 1 po QID x 7 days CLINDAMYCIN HCL 92141764045 No Longer Active Abdirahman Rios MD Activ e BACTRIM DS 800-160 MG TABS 1 po BID x 7 days 5 SULFAMETHOXAZOLE-TRIMETHOPRIM 25661978405 No Longer Active Abdirahman Rios MD Active ENDOCET 10-325 MG TABS 1 q 6 hr prn OXYCODONE-ACETAMINOPHEN 42584061948 No Longer Active Abdirahman Rios MD Active IBUPROFEN 800 MG TABS 1 tid prn IBUPROFEN 878146 70676 No Longer Active Abdirahman Rios MD Active BACTRIM DS 800-160 MG TABS by mouth twice a day 11/05 SULFAMETHOXAZOLE-TRIMETHOPRIM 30874079738 No Longer Active Good Julian MD Active HYDROCODONE-ACETAMINOPHEN 7.5-325 MG TABS 1 four times a day as needed for pain HYDROCODONE-ACETAMINOPHEN 83082909844 No Longer Activ e Good Julian MD Active KEFLEX 500 MG CAP 1 tab po tid CEPHALEXIN 260942 50812 No Longer Active Hira Moser APRN Active IBUPROFEN 800 MG TAB 1 pill three times daily as needed for pain IBUPROFEN 16488864996 No Longer Active Kalpesh Dong MD Active PROMETHAZINE-CODEINE 6.25-10 MG/5ML SYRP 1 tsp every 6 hrs prn c ough PROMETHAZINE-CODEINE 76473945565 No Longer Active Kalpesh Carr Active HYDROCODONE-ACETAMINOPHEN 5-325 MG TABS 1 tab by mouth every 6 hours as needed HYDROCODONE-ACETAMINOPHEN 15632382081 No Longer Activ e Shola MCGILL Active CEPHALEXIN 500 MG CAPS 1 PO bid x 7 days CEPHAL EXIN 10133208185 No Longer Active Shola MCGILL Active BACTRIM DS 800-160 MG TAB 1 tab by mouth twice daily 2 TRIMETHOPRIM-SULFAMETHOXAZOLE 75804294178 No Longer Active Kalpesh Dong MD Active HYDROCODONE-ACETAMINOPHEN 5-325 MG TABS 1 PO tid PRN pain 5 HYDROCODONE-ACETAMINOPHEN 68368428865 No Longer Active Abhinav Galvan MD Active IMPLANON 68 MG IMPL IMPLANTED IN LEFT ARM ETONO GESTREL 16909777959 No Longer Active Hira Moser APRN Active AMOXICILLIN 500 MG TABS 2 tabs PO bid x 10 d AM OXICILLIN 92475982855 No Longer Active Kalpesh Dong MD Active LEVAQUIN 500 MG TABS 1 PO q day x 7 days LEVOFL OXACIN 77687792481 No Longer Active Shola MCGILL Active AMITRIPTYLINE HCL 25 MG TAB 1 tab by mouth daily 60 minutes before bedtime AMITRIPTYLINE HCL 97002642600 No Longer Active Shola MCGILL Active LORTAB 5 5-500 MG TABS 1/2 to 1 tablet by mouth go ry 6 hours as needed for pain HYDROCODONE-ACETAMINOPHEN 69313965133 No Longer Active Shola MCGILL Active CEPHALEXIN 500 MG TABS Take one by mouth four times daily, morning, noon, early evening and bedtime. CEPHALEXIN 03455443868 No Long er Active Hira Moser APRN Active TYLENOL/CODEINE #3 300-30 MG TAB 1-2 po q6hr PRN Pain ACETAMINOPHEN-CODEINE 07105974728 No Longer Active Edilberto Marino DO Active PRISTIQ 50 MG [id number] 1 po qd DESVENLAFAXI NE SUCCINATE 93249644375 No Longer Active Edilberto Marino DO Active PENICILLIN V POTASSIUM 500 MG TAB 1 four times a day 2 PENICILLIN V POTASSIUM 09562473323 No Longer Active Edilberto Marino DO Active DOXYCYCLINE HYCLATE 100 MG CAPS Take one (1) tablet by mouth twice a day DOXYCYCLINE HYCLATE 75855593698 No Longer Active Ronnie Galvan MD Active HYDROCODONE-ACETAMINOPHEN 5-325 MG TABS 1 po q 6hr PRN Pain 2011 HYDROCODONE-ACETAMINOPHEN 67337428218 No Longer Active Patri joan Perez RN Active BACTRIM DS 800-160 MG TAB 1 tab by mouth twice daily 2 TRIMETHOPRIM-SULFAMETHOXAZOLE 40182495323 No Longer Active Kalpesh Dong MD Active LORTAB 5 5-500 MG TABS 1/2 to 1 tablet by mouth go ry 4 hours as needed for pain HYDROCODONE-ACETAMINOPHEN 40360540070 No Longer Active Kalpesh Dong MD Active GENERESS FE 0.8-25 MG-MCG CHEW Take one by mouth daily NORETHIN-ETH ESTRADIOL-FE 30073037248 No Longer Active Kalepsh Dong MD Active HYDROCODONE-ACETAMINOPHEN 7.5-500 MG TABS 1-2 every 4 hours as needed HYDROCODONE-ACETAMINOPHEN 60094564824 No Longer Activ e Kalpesh Dong MD Active FERROUS SULFATE 325 (65 FE) MG TABS 1 tablet by mouth twice yung y FERROUS SULFATE 05084901272 No Longer Active Kalpesh Dong MD Active IBUPROFEN 600 MG TAB 1 po q6-8hr PRN IBUPROFEN 56402149037 No Longer Active Kalpesh Dong MD Active SPIRONOLACTONE 25 MG TAB 1 tablet by mouth daily 01/22 SPIRONOLACTONE 75624792331 No Longer Active Kalpesh Dong MD Acti ve HYDROCODONE-ACETAMINOPHEN 7.5-325 MG TABS 1 po QID PRN Pain 2011 HYDROCODONE-ACETAMINOPHEN 96320795071 No Longer Active Kalpesh Dong MD Active CLINDAMYCIN HCL 300 MG CAPS 1 po q6hr x 7 days CLINDAMYCIN HCL 61863612422 No Longer Active Edilberto Marino DO Active PREDNISONE 20 MG TAB 2 tabs daily for 4 days, 1 t ab daily for 4 days, 1/2 tab daily for 4 days PREDNISONE 58991988988 No Longer Active Edilberto Marino DO Active PERCOCET 5-325 MG TABS 1 tablet by mouth every 6 hours as ne eded for pain OXYCODONE-ACETAMINOPHEN 78924965926 No Longer Active Abdirahman Rios MD Active VITAMINS TABS Take one by mouth daily MV & MIN W/FE-FA TABS 65566469310 No Longer Active Abdirahman Rios MD Active LUIS 3-0.02 MG TABS 1 tablet by mouth daily as directed DROSPIRENONE-ETHINYL ESTRADIOL 59557332839 No Longer Active Abdirahman Rios MD Active LORATADINE 10 MG TABS 1 tablet by mouth daily L ORATADINE 04024630999 No Longer Active Kalpesh Dong MD Active HYDROCODONE-ACETAMINOPHEN 5-325 MG TABS 1 po q 6hr PRN Pain 2010 HYDROCODONE-ACETAMINOPHEN 26712056890 No Longer Active Edilberto Marino DO Active BACTRIM DS 800-160 MG TAB 1 tab by mouth twice daily 2 TRIMETHOPRIM-SULFAMETHOXAZOLE 67140985088 No Longer Active Abdirahman Rios MD Active 28-0.8 MG TABS Take one by mouth daily 09/20 VIT-FE FUMARATE-FA 61502516972 No Longer Active Abdirahman Rios MD Active CIPRO 500 MG TAB 1 tablet by mouth twice daily CIPROFLOXACIN HCL 34065428624 No Longer Active Abdirahman Rios MD Active BENADRYL 25 MG CAP 1 po q8hr PRN Congestion DIPHENHYDRAMINE HCL 38331131511 No Longer Active Abdirahman Rios MD Active ZOLOFT 50 MG TAB 1 po qd SERTRALINE HCL 591607 50866 No Longer Active Abdirahman Rios MD Active AMOXICILLIN 875 MG TABS 1 tab by mouth twice daily 201 08/09/13 AMOXICILLIN 54955171808 No Longer Active Abdirahman Rios MD Activ e AMOXICILLIN 875 MG TABS 1 tab by mouth twice daily 201 07/19/27 AMOXICILLIN 60312069749 No Longer Active Abdirahman Rios MD Activ e BACTRIM DS 800-160 MG TAB 2 tab by mouth twice daily 2 TRIMETHOPRIM-SULFAMETHOXAZOLE 02889568185 No Longer Active Abdirahman Rios MD Active KEFLEX 500 MG CAP 1 po tid x 10 days CEPHALEXIN 52510850379 No Longer Active Abdirahman Rios MD Active AMOXICILLIN 875 MG TABS 1 tab by mouth twice daily 201 07/18/07 AMOXICILLIN 68621442575 No Longer Active Abdirahman Rios MD Activ e BACTRIM DS 800-160 MG TAB 2 tab by mouth twice daily 2 BACTRIM DS 800-160 MG TAB 255809 TRIMETHOPRIM-SULFAMETHOXAZOLE Inactive ZOLOFT 50 MG TAB 1 po qd ZOLOFT 50 MG TAB 3129 41 SERTRALINE HCL Inactive BENADRYL 25 MG CAP 1 po q8hr PRN Congestion BENADRYL 25 MG CAP [id number] DIPHENHYDRAMINE HCL Inactive 28-0.8 MG TABS Take one by mouth daily 09/20 28-0.8 MG TABS VIT-FE FUMARATE-FA Inactive HYDROCODONE-ACETAMINOPHEN 5-325 MG TABS 1 po q 6hr PRN Pain 2010 HYDROCODONE-ACETAMINOPHEN 5-325 MG TABS 979941 HYDROCODONE-ACETAMINOPHEN Inactive LORATADINE 10 MG TABS 1 tablet by mouth daily LORATADINE 10 MG TABS 999560 LORATADINE Inactive LUIS 3-0.02 MG TABS 1 tablet by mouth daily as directed LUIS 3-0.02 MG TABS 003327 DROSPIRENONE-ETHINYL ESTRADIOL Inactive VITAMINS TABS Take one by mouth daily VITAMINS TABS MV & MIN W/FE-FA TABS Inactive PERCOCET 5-325 MG TABS 1 tablet by mouth every 6 hours as ne eded for pain PERCOCET 5-325 MG TABS 9958173 OXYCODONE-ACETAMIN OPHEN Inactive PREDNISONE 20 MG TAB 2 tabs daily for 4 days, 1 t ab daily for 4 days, 1/2 tab daily for 4 days PREDNISONE 20 MG TAB 451376 PREDNISON E Inactive CLINDAMYCIN HCL 300 MG CAPS 1 po q6hr x 7 days CLINDAMYCIN HCL 300 MG CAPS 467984 CLINDAMYCIN HCL Inactive HYDROCODONE-ACETAMINOPHEN 7.5-325 MG TABS 1 po QID PRN Pain 2011 HYDROCODONE-ACETAMINOPHEN 7.5-325 MG TABS 820477 HYDROCODONE-ACETAMINOPHEN Inactive SPIRONOLACTONE 25 MG TAB 1 tablet by mouth daily 01/22 SPIRONOLACTONE 25 MG TAB 306014 SPIRONOLACTONE Inactive IBUPROFEN 600 MG TAB 1 po q6-8hr PRN IBUPROFEN 600 MG TAB 672176 IBUPROFEN Inactive FERROUS SULFATE 325 (65 FE) MG TABS 1 tablet by mouth twice yung y FERROUS SULFATE 325 (65 FE) MG TABS 181166 FERROUS SULF ATE Inactive HYDROCODONE-ACETAMINOPHEN 7.5-500 MG TABS 1-2 every 4 hours as needed HYDROCODONE-ACETAMINOPHEN 7.5-500 MG TABS HYDROCODONE-ACETAMINOPHEN Inactive GENERESS FE 0.8-25 MG-MCG CHEW Take one by mouth daily GENERESS FE 0.8-25 MG-MCG CHEW [id number] NORETHIN-ETH ESTRADIOL-FE Inactive LORTAB 5 5-500 MG TABS 1/2 to 1 tablet by mouth go ry 4 hours as needed for pain LORTAB 5 5-500 MG TABS HYDROCODONE-A CETAMINOPHEN Inactive BACTRIM DS 800-160 MG TAB 1 tab by mouth twice daily 2 BACTRIM DS 800-160 MG TAB 688004 TRIMETHOPRIM-SULFAMETHOXAZOLE Inac tive HYDROCODONE-ACETAMINOPHEN 5-325 MG TABS 1 po q 6hr PRN Pain 2011 HYDROCODONE-ACETAMINOPHEN 5-325 MG TABS 938874 HYDROCODONE-ACETAMINOPHEN Inactive DOXYCYCLINE HYCLATE 100 MG CAPS Take one (1) tablet by mouth twice a day DOXYCYCLINE HYCLATE 100 MG CAPS 9727685 DOXYCYCLINE HYCLATE Inactive PENICILLIN V POTASSIUM 500 MG TAB 1 four times a day 2 PENICILLIN V POTASSIUM 500 MG TAB 586337 PENICILLIN V POTASSIUM Siri ctive PRISTIQ 50 MG [id number] 1 po qd PRISTIQ 50 MG [id number] DESVENLAFAXINE SUCCINATE Inactive TYLENOL/CODEINE #3 300-30 MG TAB 1-2 po q6hr PRN Pain TYLENOL/CODEINE #3 300-30 MG TAB 497231 ACETAMINOPHEN-CODEINE Inact krishna CEPHALEXIN 500 MG TABS Take one by mouth four times daily, morning, noon, early evening and bedtime. CEPHALEXIN 500 MG TABS 006511 CEPHALEXIN Inactive LORTAB 5 5-500 MG TABS 1/2 to 1 tablet by mouth go ry 6 hours as needed for pain LORTAB 5 5-500 MG TABS HYDROCODONE-A CETAMINOPHEN Inactive AMITRIPTYLINE HCL 25 MG TAB 1 tab by mouth daily 60 minutes before bedtime AMITRIPTYLINE HCL 25 MG TAB 716934 AMITRIPTYLINE HCL Inactive AMOXICILLIN 500 MG TABS 2 tabs PO bid x 10 d 7 AMOXICILLIN 500 MG TABS 079010 AMOXICILLIN Inactive IMPLANON 68 MG IMPL IMPLANTED IN LEFT ARM IMPLANON 68 MG IMPL ETONOGESTREL Inactive HYDROCODONE-ACETAMINOPHEN 5-325 MG TABS 1 PO tid PRN pain 5 HYDROCODONE-ACETAMINOPHEN 5-325 MG TABS 891119 HYDROCODONE-ACETAMIN OPHEN Inactive BACTRIM DS 800-160 MG TAB 1 tab by mouth twice daily 2 BACTRIM DS 800-160 MG TAB 713913 TRIMETHOPRIM-SULFAMETHOXAZOLE Inac tive CEPHALEXIN 500 MG CAPS 1 PO bid x 7 days CEPHALEXIN 500 MG CAPS 560165 CEPHALEXIN Inactive HYDROCODONE-ACETAMINOPHEN 5-325 MG TABS 1 tab by mouth every 6 hours as needed HYDROCODONE-ACETAMINOPHEN 5-325 MG TABS 108952 HYDROCODONE-ACETAMINOPHEN Inactive PROMETHAZINE-CODEINE 6.25-10 MG/5ML SYRP 1 tsp every 6 hrs prn c ough PROMETHAZINE-CODEINE 6.25-10 MG/5ML SYRP 780183 PROMETH AZINE-CODEINE Inactive IBUPROFEN 800 MG TAB 1 pill three times daily as needed for pain IBUPROFEN 800 MG TAB IBUPROFEN Inactive KEFLEX 500 MG CAP 1 tab po tid KEFLEX 500 MG CAP 822677 CEPHALEXIN Inactive HYDROCODONE-ACETAMINOPHEN 7.5-325 MG TABS 1 four times a day as needed for pain HYDROCODONE-ACETAMINOPHEN 7.5-325 MG TABS 703981 HYDROCODONE-ACETAMINOPHEN Inactive BACTRIM DS 800-160 MG TABS by mouth twice a day 11/05 BACTRIM DS 800-160 MG TABS 066735 SULFAMETHOXAZOLE-TRIMETHOPRIM Inactive IBUPROFEN 800 MG TABS 1 tid prn IBUPROFEN 800 MG TABS 637647 IBUPROFEN Inactive ENDOCET 10-325 MG TABS 1 q 6 hr prn ENDOC ET 10-325 MG TABS 4092775 OXYCODONE-ACETAMINOPHEN Inactive HYDROCODONE-ACETAMINOPHEN 7.5-325 MG TABS 1 by mouth e very 6 hours as needed for pain HYDROCODONE-ACETAMINOPHEN 7.5-325 MG TABS 971368 HYDROCODONE-ACETAMINOPHEN Inactive PERCOCET 7.5-325 MG TABS 1 PO q 8 hrs PRN pain PERCOCET 7.5-325 MG TABS 6680504 OXYCODONE-ACETAMINOPHEN Inactive LIDODERM 5 % PTCH One patch to painful area [place] N. On for 12 hrs, off for 12 hrs. LIDODERM 5 % PTCH 9476213 LIDOCAINE Inactiv e PERCOCET 7.5-325 MG TABS 1 PO tid PRN pain PERCOCET 7.5- 325 MG TABS 0283231 OXYCODONE-ACETAMINOPHEN Inactive MOBIC 15 MG TABS 1 tab daily MOBIC 15 MG TABS 15 2695 MELOXICAM Inactive CYCLOBENZAPRINE HCL 10 MG TABS 1/2 - 1 tab PO tid PRN back p ain, muscle spasm CYCLOBENZAPRINE HCL 10 MG TABS 213798 CYCLOBENZA JOSEPH HCL Inactive LORATADINE 10 MG TABS 1 tablet by mouth daily LORATADINE 10 MG TABS 085931 LORATADINE Inactive HYDROCODONE-ACETAMINOPHEN 10-325 MG TABS 1 by mouth ev chaka 8 hours as needed for pain HYDROCODONE-ACETAMINOPHEN 10-325 MG TABS 072536 HYDROCODONE-ACETAMINOPHEN Inactive LC-5 LIDOCAINE 5 % CREA apply 1 time daily to affected area 2013 LC-5 LIDOCAINE 5 % CREA 8295434 LIDOCAINE (ANORECTAL) In active PERCOCET 5-325 MG TAB 1 every 6 hours as needed PERCOCET 5-325 MG TAB 6622610 OXYCODONE-ACETAMINOPHEN Inactive KEFLEX 500 MG CAP 1 po qid KEFLEX 500 MG CAP 30 9114 CEPHALEXIN Inactive PROAIR HFA 108 (90 BASE) MCG/ACT AERS 2 puff q 4-6 hrs PRN 01/24 PROAIR HFA 108 (90 BASE) MCG/ACT AERS ALBUTEROL SULFATE Inactive PERCOCET 10-325 MG ORAL TABS 1 every 4 hours as needed PERCOCET 10-325 MG ORAL TABS 3877610 OXYCODONE-ACETAMINOPHEN Inactiv e EMLA 2.5-2.5 % EXT CREA apply to skin lesion q 6 hours, prn 2014 EMLA 2.5-2.5 % EXT CREA 500375 LIDOCAINE-PRILOCAINE Siri ctive PERCOCET 10-325 MG TABS 1 tab by mouth every 6 hours , use sparingly for severe pain PERCOCET 10-325 MG TABS 6031776 OXYCODONE-ACETAMINOPHEN Inactive GLUCOPHAGE 500 MG ORAL TABS one by mouth 3 times a day GLUCOPHAGE 500 MG ORAL TABS 479453 METFORMIN HCL Inactive HYDROCODONE-ACETAMINOPHEN 5-325 MG TABS 1 po q6hr PRN pain 06/30 HYDROCODONE-ACETAMINOPHEN 5-325 MG TABS [id number] HYDROCOD ONE-ACETAMINOPHEN Inactive PERCOCET 5-325 MG TAB 1 tab po q 6 -8 hours, prn for severe pain PERCOCET 5-325 MG TAB [id number] OXYCODONE-ACETAMINOPHEN In active PERCOCET 5-325 MG ORAL TABS 1 every 6 hours as needed PERCOCET 5-325 MG ORAL TABS [id number] OXYCODONE-ACETAMINOPHEN Inactive DICLOFENAC SODIUM 50 MG TBEC 1 tablet by mouth four times da tom PRN Pain DICLOFENAC SODIUM 50 MG TBEC [id number] DICLOFENAC S ODIUM Inactive AUGMENTIN 500-125 MG ORAL TABS 1 by mouth twice a day AUGMENTIN 500-125 MG ORAL TABS [id number] AMOXICILLIN-POT CLAVULANATE I nactive HYDROCODONE-ACETAMINOPHEN 5-325 MG TABS 1 po q6hr PRN Pain 03/09 HYDROCODONE-ACETAMINOPHEN 5-325 MG TABS [id number] HYDROCOD ONE-ACETAMINOPHEN Inactive CYCLOBENZAPRINE HCL 10 MG TABS 1 tablet by mouth three times daily as needed for muscle spasm/pain CYCLOBENZAPRINE HCL 10 MG TABS [id number] CYCLOBENZAPRINE HCL Inactive SPRINTEC 28 0.25-35 MG-MCG TABS 1 pill by mouth daily for bi rth control SPRINTEC 28 0.25-35 MG-MCG TABS [id number] NORGESTIMATE-ETH ESTRADIOL Inactive PERCOCET 5-325 MG TAB 1 tab po q 6 hours, prn severe pain PERCOCET 5-325 MG TAB [id number] OXYCODONE-ACETAMINOPHEN Inactive IBUPROFEN 600 MG ORAL TABS 1 by mouth twice a day 2014 IBUPROFEN 600 MG ORAL TABS [id number] IBUPROFEN Inactive CYMBALTA 30 MG CPEP 1 cap by mouth daily CYMBALTA 30 MG CPEP [id number] DULOXETINE HCL Inactive HYDROCODONE-ACETAMINOPHEN 5-325 MG TABS 1 po q6hr PRN Pain 04/09 HYDROCODONE-ACETAMINOPHEN 5-325 MG TABS [id number] HYDROCOD ONE-ACETAMINOPHEN Inactive TRAZODONE HCL 100 MG TAB 0.5 to 1 po qHS PRN Insomnia TRAZODONE HCL 100 MG TAB [id number] TRAZODONE HCL Inactive ALPRAZOLAM 0.5 MG TABS 1 po BID PRN Anxiety ALPRAZOLAM 0.5 MG TABS [id number] ALPRAZOLAM Inactive [id number] 50-325-40 MG ORAL CAPS 1-2 po TID OK N Headache [id number] 50-325-40 MG ORAL CAPS 2 [id number] [id number] Inactive HYDROCODONE-ACETAMINOPHEN 5-325 MG TABS 1 po TID PRN Pain 9 HYDROCODONE-ACETAMINOPHEN 5-325 MG TABS [id number] HYDROCODONE-ACETAMIN OPHEN Inactive PERCOCET 10-325 MG TABS 1 tablet every 8 hours as needed for antonia n PERCOCET 10-325 MG TABS [id number] OXYCODONE-ACETAMINOPHEN Inactive ONDANSETRON 4 MG TBDP 1 q4h PRN nausea ON DANSETRON 4 MG TBDP 721039 ONDANSETRON Inactive VIIBRYD 10 & 20 & 40 MG KIT 1 po qd as directed 07/24 VIIBRYD 10 & 20 & 40 MG KIT VILAZODONE HCL Inactive DICLOFENAC SODIUM 50 MG TBEC 1 tablet by mouth four times da otm PRN Pain DICLOFENAC SODIUM 50 MG TBEC 641863 DICLOFENAC S ODIUM Inactive PERCOCET 10-325 MG ORAL TABS one every 6 hours prn pain PERCOCET 10-325 MG ORAL TABS [id number] OXYCODONE-ACETAMINOPHEN Inactiv e PERCOCET 10-325 MG ORAL TABS take 1 tab by mouth q 4hours as needed for pain PERCOCET 10-325 MG ORAL TABS [id number] OXYCODONE-ACETAMINOPHEN Inactive FLONASE ALLERGY RELIEF 50 MCG/ACT NASAL SUSP One spray in each nostril twice a day. FLONASE ALLERGY RELIEF 50 MCG/ACT NASAL S SHELTER 586340 FLUTICASONE PROPIONATE Inactive AUGMENTIN 875-125 MG TAB 1 tab by mouth twice daily with food 20 23/05/16 AUGMENTIN 875-125 MG TAB 976176 AMOXICILLIN-POT [place] Inactive HYDROCODONE-ACETAMINOPHEN 5-325 MG TABS 1 tab by mouth every 6 hours as needed for pain HYDROCODONE-ACETAMINOPHEN 5-325 MG TABS 8 22080 HYDROCODONE-ACETAMINOPHEN Inactive PERCOCET 10-325 MG TABS 1 tablet every 8 hours as needed for antonia n PERCOCET 10-325 MG TABS 2511212 OXYCODONE-ACETAMINOPHEN Inactive LC-4 LIDOCAINE 4 % EXT CREA apply q 6 hours, prn 08/03 LC-4 LIDOCAINE 4 % EXT CREA [id number] LIDOCAINE Inactive PROMETHAZINE HCL 25 MG TABS 1 four times a day as needed for nausea/vomiting PROMETHAZINE HCL 25 MG TABS 723600 PROMETHAZINE HCL Inactive AMOXICILLIN 875 MG TABS 1 tab by mouth twice daily 201 07/18/07 AMOXICILLIN 875 MG TABS 787003 AMOXICILLIN Inactive KEFLEX 500 MG CAP 1 po tid x 10 days KEFLEX 500 MG CAP 622640 CEPHALEXIN Inactive AMOXICILLIN 875 MG TABS 1 tab by mouth twice daily 201 07/19/27 AMOXICILLIN 875 MG TABS 878740 AMOXICILLIN Inactive AMOXICILLIN 875 MG TABS 1 tab by mouth twice daily 201 08/09/13 AMOXICILLIN 875 MG TABS 310239 AMOXICILLIN Inactive CIPRO 500 MG TAB 1 tablet by mouth twice daily CIPRO 500 MG TAB 501060 CIPROFLOXACIN HCL Inactive BACTRIM DS 800-160 MG TAB 1 tab by mouth twice daily 2 BACTRIM DS 800-160 MG TAB 329325 TRIMETHOPRIM-SULFAMETHOXAZOLE Inac tive LEVAQUIN 500 MG TABS 1 PO q day x 7 days LEVAQUIN 500 MG TABS 080070 LEVOFLOXACIN Inactive CLINDAMYCIN HCL 300 MG CAPS 1 po QID x 7 days CLINDAMYCIN HCL 300 MG CAPS 076621 CLINDAMYCIN HCL Inactive AUGMENTIN 875-125 MG TAB 1 tab by mouth twice daily with food 20 22/05/07 AUGMENTIN 875-125 MG TAB 057195 AMOXICILLIN-POT [place] Inactive DIFLUCAN 150 MG TAB 1 qODay x 2 doses DIFLUCAN 150 MG TAB 019161 FLUCONAZOLE Inactive PREDNISONE 20 MG TAB 2 tabs daily for 3 days, 1 t ab daily for 3 days, 1/2 tab daily for 2 days PREDNISONE 20 MG TAB 692994 PREDNISON E Inactive AUGMENTIN 875-125 MG TAB 1 tab by mouth twice daily with food 20 21/10/13 AUGMENTIN 875-125 MG TAB 828613 AMOXICILLIN-POT [place] Inactive HYDROCODONE-ACETAMINOPHEN 5-325 MG TABS 1 tab by mouth every 6 hours as needed PRN Pain HYDROCODONE-ACETAMINOPHEN 5-325 MG TABS 8 37093 HYDROCODONE-ACETAMINOPHEN Inactive PROMETHAZINE HCL 25 MG TABS 1 four times a day as needed for nausea/vomiting PROMETHAZINE HCL 25 MG TABS 729888 PROMETHAZINE HCL Inactive Advance Directives Directive Description Start Date PERMISSION TO SHARE Immunizations Vaccine Administration Date Value Standard Alf cription Seasonal influenza vaccine, injectable, containing preservative, for > 3 years old (Afluria, FluLaval, Fluzone, Fluvirin, Fluarix, Agriflu(>= 18 yo)) Fluzone (>3 yrs.) [[id number]] Influenza, seasonal, inject able Seasonal influenza vaccine, injectable, preservative free, for > 3 years old (Afluria, FluLaval, Fluzone, Fluvirin, Fluarix, Agriflu(>= 18 yo)) Fluzone preservative free (>3 yrs.) [[id number]] Influenza, seasonal, injectable, preservative free Seasonal influenza vaccine, injectable, containing preservative, for > 3 years old (Afluria, FluLaval, Fluzone, Fluvirin, Fluarix, Agriflu(>= 18 yo)) Fluzone (>3 yrs.) [[id number]] Influenza, seasonal, inject able Seasonal influenza vaccine, injectable, containing preservative, for > 3 years old (Afluria, FluLaval, Fluzone, Fluvirin, Fluarix, Agriflu(>= 18 yo)) Fluzone (>3 yrs.) [[id number]] Influenza, seasonal, inject able dT (Diphtheria and [...] pressure, diastolic - 8462-4 91 mm[Hg] BP riebiro blood pressure, systolic - 8480-6 137 mm[Hg] [...] Panel - Chemistry sodium, serum 142 mmol/L 003-081 5380/05/12 potassium, serum 4.8 mmol/L 3.5-5.2 chloride, serum [...] ... - Chemistry sodium, serum 137 mmol/L [phone]/02/24 carbon dioxide, venous blood 26.3 mmol/L 21.0-32 [...] Panel - Chemistry cholesterol, serum 181 mg/dL [phone]/09/01 triglyceride, serum, fasting 341 mg/dL 30-200 HDL cholesterol, serum 22 mg/dL 32-96 LDL cholesterol, serum 91 mg/dL 0-130 cholesterol, serum 165 mg/dL [phone]/05/12 triglyceride, serum, fasting 524 mg/dL 30-200 HDL [...] negative Encounters Code Encounter Date Provider Facility CPT-02651 Level 4 Est. Patient 16:38:26 CHARTER PILOT Abdirahman Rios MD [facility] CPT-34627 Level 3 Est. Patient 05:31:41 CHARTER PILOT Kalpesh goins MD [facility] CPT-43765 Level 3 Est. Patient 11:22:02 CHARTER PILOT Hira muniz [facility] CPT-74326 Level 3 Est. Patient 21:00:18 CHARTER PILOT Rajni danielson [facility] CPT-70276 Level 3 Est. Patient 14:15:00 CHARTER PILOT Kalpesh goins MD [facility] CPT-76106 Level 2 Est. Patient 19:57:52 CHARTER PILOT Rajni danielson [facility] CPT-19141 Level 3 Est. Patient 16:58:40 CHARTER PILOT Bj funes MD [facility] CPT-15758 Level 3 Est. Patient 08:51:33 CDT Kalpesh goins MD [facility] CPT-43513 Level 4 Est. Patient 14:14:53 CDT Abdirahman Rios MD [facility] CPT-60354 Level 3 Est. Patient 15:47:40 CDT Kalpesh goins MD [facility] CPT-81512 Level 3 Est. Patient 10:57:26 CDT Abdirahman Rios MD [facility]-24955 Level 3 Est. Patient 14:29:53 CDT Abhinav Galvan MD [facility] CPT-89234 Level 2 Est. Patient 16:33:01 CDT Kalpesh goins MD [facility] CPT-19879 Level 4 Est. Patient 16:44:56 CDT Abdirahman Rios MD [facility] CPT-93693 Level 2 Est. Patient 07:49:32 CDT Kalpesh goins MD [facility] CPT-91917 Level 3 New Patient 15:47:11 CHARTER PILOT Bj huber MD [facility]-69894 Level 4 Est. Patient 14:37:38 CHARTER PILOT Abdirahman Rios MD [facility] CPT-24039 Level 2 Est. Patient 13:32:17 CHARTER PILOT Kalpesh goins MD [facility] CPT-78828 Level 3 Est. Patient 17:32:57 CHARTER PILOT Edilberto tiwari [facility] CPT-26090 Level 3 Est. Patient 17:22:33 CHARTER PILOT Edilberto tiwari [facility] CPT-66540 Level 2 Est. Patient 16:57:09 CHARTER PILOT Kalpesh goins MD [facility]-69216 Level 3 Est. Patient 14:03:08 CHARTER PILOT Abdirahman Rios MD [facility] CPT-45566 Level 3 Est. Patient 18:12:34 CDT Shola Wright [facility]-23733 Level 3 Est. Patient 19:34:46 CDT Shola Wright [facility] CPT-89877 Level 3 Est. Patient 14:19:37 CDT Abdirahman Rios MD [facility] CPT-12811 Level 3 Est. Patient 14:11:58 CDT Kalpesh goins MD [facility]-31570 Level 3 Est. Patient 16:50:00 CDT Michelle BRADFORDP [facility] CPT-44287 Level 3 Est. Patient 17:11:32 CHARTER PILOT Brandie bates MD PhD [facility]-24887 Level 3 Est. Patient 16:31:47 CHARTER PILOT Shola Wright [facility] CPT-05809 Level 3 Est. Patient 17:51:10 CHARTER PILOT Abhinav Galvan MD [facility]-47520 Level 4 Est. Patient 12:54:56 CHARTER PILOT Kalpesh goins MD [facility]-36438 Level 4 Est. Patient 12:53:56 CHARTER PILOT Kalpesh goins MD [facility]-47638 Level 3 Est. Patient 17:56:58 CDT Shola Wright [facility] CPT-83687 Level 3 Est. Patient 14:26:20 CDT Janak butcher [facility] CPT-33764 Level 3 Est. Patient 09:38:41 CDT Shola Wright [facility] CPT-62152 Level 3 Est. Patient 14:45:26 CDT Edilberto tiwari [facility] CPT-99083 Level 3 Est. Patient 10:51:33 CD[facility] Level 3 Est. Patient 11:57:55 CHARTER PILOT Shola Wright [facility] CPT-58270 Level 3 Est. Patient 09:53:33 CHARTER PILOT Edilberto tiwari [facility] CPT-24955 Level 3 Est. Patient 14:42:54 CHARTER PILOT Abhinav Glavan MD [facility] CPT-69960 Level 3 Est. Patient 15:10:02 CDT Janak Stevenamira [facility]-62531 Level 3 Est. Patient 15:20:20 CDT Theo dennis MD [facility] CPT-26177 Level 2 Est. Patient 14:08:57 CDT Kalpesh goins MD [facility] CPT-38856 Level 3 Est. Patient 13:56:19 CDT Abdirahman Rios MD [facility] CPT-82627 Level 3 Est. Patient 13:59:37 CDT Abdirahman Rios MD [facility] CPT-65651 Level 2 Est. Patient 14:44:59 CDT Kalpesh goins MD [facility] CPT-07501 Level 3 Est. Patient 06:06:23 CDT Edilberto tiwari DO [facility] CPT-22939 Level 3 Est. Patient 15:23:54 CDT Abdirahman Rios MD [facility] CPT-59704 Level 3 Est. Patient 15:43:49 CDT Abdirahman Rios MD [facility] CPT-22053 Level 3 Est. Patient 12:46:47 CHARTER PILOT Abdirahman Rios MD [facility] CPT-41523 Level 3 Est. Patient 08:13:35 CHARTER PILOT Abdirahman Rios MD [facility] CPT-55182 Level 2 Est. Patient 09:36:42 CHARTER PILOT Abdirahman Rios MD [facility] CPT-68556 Level 3 Est. Patient 10:56:43 CDT Abdirahman Rios MD [facility] CPT-10153 Level 3 Est. Patient 18:24:52 CDT Abdirahman Rios MD [facility] CPT-72799 Level 3 Est. Patient 13:27:22 CDT Abdirahman Rios MD [facility] Procedures Code Procedure Name Date Entry Date Standard Desc ription CPT-75661 Postop F/U Visit 17:09:41 CHARTER PILOT CPT-52255 Postop F/U Visit 14:08:43 CHARTER PILOT CPT-23067 Postop F/U Visit 15:18:16 CHARTER PILOT CPT-36139 Postop F/U Visit 15:03:49 CHARTER PILOT CPT-60176 Postop F/U Visit 14:45:23 CHARTER PILOT CPT-31108 Postop F/U Visit 14:11:03 CHARTER PILOT CPT-12190 Postop F/U Visit 18:21:21 CHARTER PILOT CPT-14795 Postop F/U Visit 15:57:12 CHARTER PILOT CPT-88553 Bladder Instillation 16:58:41 CHARTER PILOT 6 CPT-84833 Fluzone Quadrivalent Intramuscular Suspe nsion 0.5 ML 15:20:56 CHARTER PILOT CPT-13678 Immunization Single Admin 15:20:56 CHARTER PILOT 2014 CPT-19481 Excis pilonidal cyst simple 08:51:34 CDT 20 22/04/20 CPT-05245 Venipuncture Draw Fee 14:27:29 CDT CPT-84368 Postop F/U Visit 15:27:43 CDT CPT-88821 Postop F/U Visit 14:40:59 CDT CPT-79752 Postop F/U Visit 15:02:46 CDT CPT-84322 Postop F/U Visit 11:29:00 CHARTER PILOT CPT-J0696 Rocephin 1000 mg (Ceftriaxone) 17:22:33 CHARTER PILOT CPT-05523 Postop F/U Visit 18:41:07 CHARTER PILOT CPT-86274 Postop F/U Visit 08:19:08 CHARTER PILOT CPT-22545 Immunization Single Admin 16:41:53 CDT 2013 CPT-90388 Fluzone Quadrivalent Intramuscular Suspe nsion 0.5 ML 16:41:53 CDT CPT-OV Office Visit 16:39:18 CDT CPT-OV Office Visit 16:16:36 CDT CPT-OV Office Visit 15:34:48 CDT CPT-90850 Postop F/U Visit 14:50:12 CDT CPT-17165 Postop F/U Visit 14:41:10 CDT CPT-14070 Venipuncture Draw Fee 11:38:04 CHARTER PILOT CPT-99284 Postop F/U Visit 19:02:59 CHARTER PILOT CPT-46410 Postop F/U Visit 12:04:54 CHARTER PILOT CPT-84325 Administration single or combination vac cine inc oral 15:56:43 CDT CPT-29841 Influenza split virus > age 3 15:56:43 CDT CPT-85638 Hand comp min 3V 14:25:19 CDT CPT-44140 Postop F/U Visit 21:40:51 CDT CPT-57423 Postop F/U Visit 10:58:43 CDT CPT-79360 Administration single or combination vac cine inc oral 12:33:54 CHARTER PILOT CPT-91433 Influenza Preservative Free split virus >age 3 12:33:54 CHARTER PILOT CPT-89311 Administration single or combination vac cine inc oral 09:30:51 CDT CPT-72760 Influenza split virus > age 3 09:30:51 CDT CPT-74882 Postop F/U Visit 15:14:53 CDT CPT-23487 Postop F/U Visit 13:50:14 CDT CPT-87306 Postop F/U Visit 13:34:52 CDT CPT-OV Office Visit 16:55:03 CDT CPT-95921 Liberty of cervix w bx ECC 13:32:50 CDT 10/19 CPT-J1885 Toradol 60 mg (Ketorolac) 15:31:59 CDT 2011 CPT-J1885 Toradol 60 mg (Ketorolac) 15:23:54 CDT 2011 CPT-71252 Visit 11:34:37 CHARTER PILOT CPT-97484 Visit 10:52:39 CHARTER PILOT CPT-05680 Visit 10:12:02 CHARTER PILOT CPT-26644 Visit 11:22:43 CHARTER PILOT CPT-15278 Visit 11:24:12 CHARTER PILOT CPT-58614 Visit 10:47:05 CHARTER PILOT CPT-OV Office Visit 10:26:16 CHARTER PILOT CPT-OV Office Visit 15:34:31 CHARTER PILOT CPT-31615 Visit 10:42:08 CHARTER PILOT CPT-17438 Visit 10:52:45 CHARTER PILOT CPT-000 Give Appropriate Flu Vaccine 16:56:41 CDT 2 CPT-90491 Administration single or combination vac cine inc oral 10:33:21 CDT CPT-12447 Influenza split virus > age 3 10:33:21 CDT CPT-72292 Visit 13:23:09 CDT CPT-07563 Visit 18:24:52 CDT CPT-99375 Sono OB comp > 14 weeks 12:07:49 CDT 04/07
--- OUTSIDE RECORDS SUMMARY | 2020-01-18 16:18 | XMS REPORT | Clinical Summary ---
Author Author Admin, Jeri Rahsid Organization [facility] Address Unknown Phone [...] unspecified SINUSITIS, ACUTE 461.9 Active Rajni Alcazar [employer]ORDINATOR Acute sinusitis, unspecified BACK PAIN 724.5 Resolved [...] Moni Julian MD DEPRESSION ICD-311 Inactive Good iserra MD ABDOMINAL ABSCESS ICD-682.2 Inactive Abdirahman sanchez MD BACK PAIN ICD-724.5 Inactive Abdirahman Rios MD , NORMAL ICD-V22.2 Inactive Abdirahman sanchez MD UNSPEC LOCAL INFECTION SKIN&SUBCUTANEOUS TISSUE ICD-686.9 08/09 Inactive Abdirahman Rios MD OTH SPEC LOCAL INFECTIONS SKIN&SUBCUT TISSUE ICD-686.8 2 Inactive Abdirahman Rios MD VAGINAL DISCHARGE ICD-623.5 Inactive bAdirahman sanchez MD URETHRITIS ICD-597.80 Inactive Good melchor [...] ORL CAV&DIGESTV SYS NEC ICD-V58.75 Jose M Julain MD ACUTE BRONCHITIS ICD-466.0 Inactive Good Julian [...] 1 every 4 hous as needed OXYCODONE-ACETAMINOPHEN [id number] Active Kalpesh Dong MD Active HYDROCODONE-ACETAMINOPHEN 5-325 MG TABS 1 tab by mouth every 6 hours as needed for pain HYDROCODONE-ACETAMINOPHEN 42902593120 Active Abdirahman Rios MD Active GLYDO 2 % EXT GEL apply to painful areas as needed LIDOCAINE HCL 97995624647 Active Kalpesh Dong MD Active LC-4 LIDOCAINE 4 % EXT CREA apply to painful area every 12 h ours or as needed LIDOCAINE 68666389924 Active Kalpesh Dong MD Active AUGMENTIN 875-125 MG TAB 1 tab by mouth twice daily with food 20 23/05/16 AMOXICILLIN-POT CLAVULANATE 15501789159 No Longer Active Lizeth hi [place] [employer] COORDINATOR 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 FLUTICASONE PROPIONATE 11634104424 No Longer Ac tive Rajni [place] [employer] COORDINATOR Active PERCOCET 10-325 MG ORAL TABS take 1 tab by mouth q 4hours as needed for pain OXYCODONE-ACETAMINOPHEN 31738004460 No Longer Active Rajni [place] [employer] COORDINATOR Active PERCOCET 10-325 MG ORAL TABS one every 6 hours prn pain OXYCODONE-ACETAMINOPHEN 86394263187 No Longer Active Rajni [place] [employer] COORDINATOR Active IBUPROFEN 800 MG TABS 1 tab po tid, with food I BUPROFEN 82220545785 Active Jillina Frazell [employer] COORDINATOR Active PERCOCET 10-325 MG TABS 1 tablet every 8 hours as needed for pain 2 OXYCODONE-ACETAMINOPHEN 14177911052 Active Rajni [place] [employer] COORDINATOR Active DICLOFENAC SODIUM 50 MG TBEC 1 tablet by mouth four times da tom PRN Pain DICLOFENAC SODIUM 32282827145 No Longer Active Rajni [place] [employer] COORDINATOR Active VIIBRYD 10 & 20 & 40 MG KIT 1 po qd as directed 07/24 VILAZODONE HCL 87413200290 No Longer Active Rajni [place] [employer] COORDINATOR Active ONDANSETRON 4 MG TBDP 1 q4h PRN nausea ONDANSET KELBY 56286151997 No Longer Active Rajni [place] [employer]NESS COORDINATOR Active PERCOCET 10-325 MG TABS 1 tablet every 8 hours as needed for antonia n OXYCODONE-ACETAMINOPHEN 87777071591 No Longer Active Rajni cox [employer] WE[employer]NESS COORDINATOR Active HYDROCODONE-ACETAMINOPHEN 5-325 MG TABS 1 po TID PRN Pain 9 HYDROCODONE-ACETAMINOPHEN 13002248651 No Longer Active Abdirahman Rios MD Active LC-4 LIDOCAINE 4 % EXT CREA apply q 6 hours, prn LIDOCAINE 62516626337 Active Hira Moser [employer] COORDINATOR Active [id number] 50-325-40 MG ORAL CAPS 1-2 po TID LA N Headache [id number] 63316010906 No Longer Act krishna Kalpesh Dong MD Active ALPRAZOLAM 0.5 MG TABS 1 po BID PRN Anxiety ALP RAZOLAM 46045429281 No Longer Active Kalpesh Dong MD Active TRAZODONE HCL 100 MG TAB 0.5 to 1 po qHS PRN Insomnia TRAZODONE HCL 62757045944 No Longer Active Kalpesh Dong MD Activ e HYDROCODONE-ACETAMINOPHEN 5-325 MG TABS 1 po q6hr PRN Pain 04/09 HYDROCODONE-ACETAMINOPHEN 95302330740 No Longer Active Kalpesh Dong MD Active CYMBALTA 30 MG CPEP 1 cap by mouth daily DULOXE CLEO HCL 44392128930 No Longer Active Abdirahman Rios MD Active IBUPROFEN 600 MG ORAL TABS 1 by mouth twice a day 2014 IBUPROFEN 69496051149 No Longer Active Abdirahman Rios MD Activ e PERCOCET 5-325 MG TAB 1 tab po q 6 hours, prn severe pain 1 OXYCODONE-ACETAMINOPHEN 20114194549 No Longer Active Abdirahman Rios MD Active SPRINTEC 28 0.25-35 MG-MCG TABS 1 pill by mouth daily for bi rth control NORGESTIMATE-ETH ESTRADIOL 84705391930 No Longer Acti ve Hira Moser [employer]NESS COORDINATOR Active CYCLOBENZAPRINE HCL 10 MG TABS 1 tablet by mouth three times daily as needed for muscle spasm/pain CYCLOBENZAPRINE HCL 12878688709 No Longer Active Hira Moser APRN Active HYDROCODONE-ACETAMINOPHEN 5-325 MG TABS 1 po q6hr PRN Pain 03/09 HYDROCODONE-ACETAMINOPHEN 57478910469 No Longer Active Hira Peraza l [employer] WE[employer]NESS COORDINATOR Active AUGMENTIN 500-125 MG ORAL TABS 1 by mouth twice a day AMOXICILLIN-POT CLAVULANATE 57705360741 No Longer Active Hira Moser [employer] WELLNESS COORDINATOR Active DICLOFENAC SODIUM 50 MG TBEC 1 tablet by mouth four times da tom PRN Pain DICLOFENAC SODIUM 26419087507 No Longer Active Karenin mitch Moser APRN Active PROMETHAZINE HCL 25 MG TABS 1 four times a day as needed for nausea/vomiting PROMETHAZINE HCL 88529403011 No Longer Active Abdirahman Rios MD Active HYDROCODONE-ACETAMINOPHEN 5-325 MG TABS 1 tab by mouth every 6 hours as needed PRN Pain HYDROCODONE-ACETAMINOPHEN 73851541720 No Longer Active Abdirahman Rios MD Active GEMFIBROZIL 600 MG TABS 1 po BID GEMFIBROZIL 87029115 005 Active Abdirahman Rios MD Active PERCOCET 5-325 MG ORAL TABS 1 every 6 hours as needed OXYCODONE-ACETAMINOPHEN 50278042934 No Longer Active Abdirahman Rios MD Active PERCOCET 5-325 MG TAB 1 tab po q 6 -8 hours, prn for severe pain OXYCODONE-ACETAMINOPHEN 58320040505 No Longer Active Abdirahman Rios MD Active HYDROCODONE-ACETAMINOPHEN 5-325 MG TABS 1 po q6hr PRN pain 06/30 HYDROCODONE-ACETAMINOPHEN 95217450719 No Longer Active Hira roman APRN Active GLUCOPHAGE 500 MG ORAL TABS one by mouth 3 times a day METFORMIN HCL 93596322269 No Longer Active Hira Moser APRN Ac tive PERCOCET 10-325 MG TABS 1 tab by mouth every 6 hours , use sparingly for severe pain OXYCODONE-ACETAMINOPHEN 67476873533 No Longer A ctive Abdirahman Rios MD Active EMLA 2.5-2.5 % EXT CREA apply to skin lesion q 6 hours, prn 2014 LIDOCAINE-PRILOCAINE 80227887425 No Longer Active Abdirahman Rios MD Active PERCOCET 10-325 MG ORAL TABS 1 every 4 hours as needed OXYCODONE-ACETAMINOPHEN 94442361220 No Longer Active Abdirahman Rios MD Active AUGMENTIN 875-125 MG TAB 1 tab by mouth twice daily with food 20 21/10/13 AMOXICILLIN-POT CLAVULANATE 02675027312 No Longer Active Ursula Moser APRN Active PROAIR HFA 108 (90 BASE) MCG/ACT AERS 2 puff q 4-6 hrs PRN 01/24 ALBUTEROL SULFATE 83204465926 No Longer Active Kalpesh Dong MD Active PREDNISONE 20 MG TAB 2 tabs daily for 3 days, 1 t ab daily for 3 days, 1/2 tab daily for 2 days PREDNISONE 35812035745 No Longer Active Abdirahman Rios MD Active KEFLEX 500 MG CAP 1 po qid CEPHALEXIN 100096246 20 No Longer Active Kalpesh Dong MD Active PERCOCET 5-325 MG TAB 1 every 6 hours as needed OXYCODONE-ACETAMINOPHEN 81296735681 No Longer Active Shola MCGILL Active LC-5 LIDOCAINE 5 % CREA apply 1 time daily to affected area 2013 LIDOCAINE (ANORECTAL) 30283020510 No Longer Active Hira muniz APRN Active HYDROCODONE-ACETAMINOPHEN 10-325 MG TABS 1 by mouth ev chaka 8 hours as needed for pain HYDROCODONE-ACETAMINOPHEN 34653222322 No Longer Active Jillina Frazell [employer]NESS COORDINATOR Active LORATADINE 10 MG TABS 1 tablet by mouth daily L ORATADINE 10555923632 No Longer Active Jillina Frazell [employer] WE[employer]NESS COORDINATOR Active DIFLUCAN 150 MG TAB 1 qODay x 2 doses FLUCONAZO LE 22561344195 No Longer Active Jillina Frazell [employer] WE[employer]NESS COORDINATOR Active CYCLOBENZAPRINE HCL 10 MG TABS 1/2 - 1 tab PO tid PRN back p ain, muscle spasm CYCLOBENZAPRINE HCL 83723531082 No Longer Active Karen siri Frazell [employer] WE[employer]NESS COORDINATOR Active AUGMENTIN 875-125 MG TAB 1 tab by mouth twice daily with food 20 22/05/07 AMOXICILLIN-POT CLAVULANATE 22890775251 No Longer Active Loida Rios MD Active MOBIC 15 MG TABS 1 tab daily MELOXICAM 539770018 14 No Longer Active Abdirahman Rios MD Active PERCOCET 7.5-325 MG TABS 1 PO tid PRN pain OXYCODONE-ACETAMINOPHEN 35664731507 No Longer Active Abdirahman Rios MD Active LIDODERM 5 % PTCH One patch to painful area [place] N. On for 12 hrs, off for 12 hrs. LIDOCAINE 67767526425 No Longer Active Abdirahman Rios MD Active PERCOCET 7.5-325 MG TABS 1 PO q 8 hrs PRN pain OXYCODONE-ACETAMINOPHEN 64975138719 No Longer Active Shola MCGILL Active HYDROCODONE-ACETAMINOPHEN 7.5-325 MG TABS 1 by mouth e very 6 hours as needed for pain HYDROCODONE-ACETAMINOPHEN 09214179006 No Longer Active Good Julian MD Active CLINDAMYCIN HCL 300 MG CAPS 1 po QID x 7 days CLINDAMYCIN HCL 00782776442 No Longer Active Abdirahman Rios MD Activ e BACTRIM DS 800-160 MG TABS 1 po BID x 7 days 5 SULFAMETHOXAZOLE-TRIMETHOPRIM 66544628119 No Longer Active Abdirahman Rios MD Active ENDOCET 10-325 MG TABS 1 q 6 hr prn OXYCODONE-ACETAMINOPHEN 36907711039 No Longer Active Abdirahman Rios MD Active IBUPROFEN 800 MG TABS 1 tid prn IBUPROFEN 542037 91625 No Longer Active Abdirahman Rios MD Active BACTRIM DS 800-160 MG TABS by mouth twice a day 11/05 SULFAMETHOXAZOLE-TRIMETHOPRIM 11759460464 No Longer Active Good Julian MD Active HYDROCODONE-ACETAMINOPHEN 7.5-325 MG TABS 1 four times a day as needed for pain HYDROCODONE-ACETAMINOPHEN 60897777448 No Longer Activ e Good Julian MD Active KEFLEX 500 MG CAP 1 tab po tid CEPHALEXIN 194835 09217 No Longer Active Jillsiri Moser APRN Active IBUPROFEN 800 MG TAB 1 pill three times daily as needed for pain IBUPROFEN 93642312301 No Longer Active Kalpesh Dong MD Active PROMETHAZINE-CODEINE 6.25-10 MG/5ML SYRP 1 tsp every 6 hrs prn c ough PROMETHAZINE-CODEINE 20195121525 No Longer Active Kalpesh Carr Active HYDROCODONE-ACETAMINOPHEN 5-325 MG TABS 1 tab by mouth every 6 hours as needed HYDROCODONE-ACETAMINOPHEN 23382629022 No Longer Activ e Shola MCGILL Active CEPHALEXIN 500 MG CAPS 1 PO bid x 7 days CEPHAL EXIN 54410052064 No Longer Active Shola MCGILL Active BACTRIM DS 800-160 MG TAB 1 tab by mouth twice daily 2 TRIMETHOPRIM-SULFAMETHOXAZOLE 60040273346 No Longer Active Kalpesh Dong MD Active HYDROCODONE-ACETAMINOPHEN 5-325 MG TABS 1 PO tid PRN pain 5 HYDROCODONE-ACETAMINOPHEN 24887460829 No Longer Active Abhinav Galvan MD Active IMPLANON 68 MG IMPL IMPLANTED IN LEFT ARM ETONO GESTREL 61968969615 No Longer Active Jillina Frazell [employer] WE[employer]NESS COORDINATOR Active AMOXICILLIN 500 MG TABS 2 tabs PO bid x 10 d AM OXICILLIN 13295750333 No Longer Active Kalpesh Dong MD Active LEVAQUIN 500 MG TABS 1 PO q day x 7 days LEVOFL OXACIN 75383279721 No Longer Active Shola MCGILL Active AMITRIPTYLINE HCL 25 MG TAB 1 tab by mouth daily 60 minutes before bedtime AMITRIPTYLINE HCL 41220955290 No Longer Active Shola MCGILL Active LORTAB 5 5-500 MG TABS 1/2 to 1 tablet by mouth go ry 6 hours as needed for pain HYDROCODONE-ACETAMINOPHEN 38690999333 No Longer Active Shola MCGILL Active CEPHALEXIN 500 MG TABS Take one by mouth four times daily, morning, noon, early evening and bedtime. CEPHALEXIN 72291601205 No Long er Active Karenina Karmenl [employer] COORDINATOR Active TYLENOL/CODEINE #3 300-30 MG TAB 1-2 po q6hr PRN Pain ACETAMINOPHEN-CODEINE 24909080415 No Longer Active Edilberto Marino DO Active PRISTIQ 50 MG [id number] 1 po qd DESVENLAFAXI NE SUCCINATE 84257999345 No Longer Active Edilberto Marino DO Active PENICILLIN V POTASSIUM 500 MG TAB 1 four times a day 2 PENICILLIN V POTASSIUM 94597008912 No Longer Active Edilberto Marino DO Active DOXYCYCLINE HYCLATE 100 MG CAPS Take one (1) tablet by mouth twice a day DOXYCYCLINE HYCLATE 47439844644 No Longer Active Ronnie Galvan MD Active HYDROCODONE-ACETAMINOPHEN 5-325 MG TABS 1 po q 6hr PRN Pain 2011 HYDROCODONE-ACETAMINOPHEN 56352350906 No Longer Active Jerson Perez RN Active BACTRIM DS 800-160 MG TAB 1 tab by mouth twice daily 2 TRIMETHOPRIM-SULFAMETHOXAZOLE 63484184915 No Longer Active Kalpesh Dong MD Active LORTAB 5 5-500 MG TABS 1/2 to 1 tablet by mouth go ry 4 hours as needed for pain HYDROCODONE-ACETAMINOPHEN 67428120577 No Longer Active Kalpesh Dong MD Active GENERESS FE 0.8-25 MG-MCG CHEW Take one by mouth daily NORETHIN-ETH ESTRADIOL-FE 36281881972 No Longer Active Kalpesh Dong MD Active HYDROCODONE-ACETAMINOPHEN 7.5-500 MG TABS 1-2 every 4 hours as needed HYDROCODONE-ACETAMINOPHEN 07358500103 No Longer Activ e Kalpesh Dong MD Active FERROUS SULFATE 325 (65 FE) MG TABS 1 tablet by mouth twice yung y FERROUS SULFATE 14722717392 No Longer Active Kalpesh Dong MD Active IBUPROFEN 600 MG TAB 1 po q6-8hr PRN IBUPROFEN 23720882020 No Longer Active Kalpesh Dong MD Active SPIRONOLACTONE 25 MG TAB 1 tablet by mouth daily 01/22 SPIRONOLACTONE 74004668602 No Longer Active Kalpesh Dong MD Acti ve HYDROCODONE-ACETAMINOPHEN 7.5-325 MG TABS 1 po QID PRN Pain 2011 HYDROCODONE-ACETAMINOPHEN 24362580051 No Longer Active Kalpesh Dong MD Active CLINDAMYCIN HCL 300 MG CAPS 1 po q6hr x 7 days CLINDAMYCIN HCL 98624996322 No Longer Active Edilberto Marino DO Active PREDNISONE 20 MG TAB 2 tabs daily for 4 days, 1 t ab daily for 4 days, 1/2 tab daily for 4 days PREDNISONE 73123823268 No Longer Active Edilberto Marino DO Active PERCOCET 5-325 MG TABS 1 tablet by mouth every 6 hours as ne eded for pain OXYCODONE-ACETAMINOPHEN 53670518996 No Longer Active Abdirahman Rios MD Active VITAMINS TABS Take one by mouth daily MV & MIN W/FE-FA TABS 63279523713 No Longer Active Abdirahman Rios MD Active LUIS 3-0.02 MG TABS 1 tablet by mouth daily as directed DROSPIRENONE-ETHINYL ESTRADIOL 83488740725 No Longer Active Abdirahman Rios MD Active LORATADINE 10 MG TABS 1 tablet by mouth daily L ORATADINE 34857578657 No Longer Active Kalpesh Dong MD Active HYDROCODONE-ACETAMINOPHEN 5-325 MG TABS 1 po q 6hr PRN Pain 2010 HYDROCODONE-ACETAMINOPHEN 65647433827 No Longer Active Edilberto Marino DO Active BACTRIM DS 800-160 MG TAB 1 tab by mouth twice daily 2 TRIMETHOPRIM-SULFAMETHOXAZOLE 35112179586 No Longer Active Abdirahman Rios MD Active 28-0.8 MG TABS Take one by mouth daily 09/20 VIT-FE FUMARATE-FA 00913892706 No Longer Active Abdirahman Rios MD Active CIPRO 500 MG TAB 1 tablet by mouth twice daily CIPROFLOXACIN HCL 43918619633 No Longer Active Abdirahman Rios MD Active BENADRYL 25 MG CAP 1 po q8hr PRN Congestion DIPHENHYDRAMINE HCL 96432091866 No Longer Active Abdirahman Rios MD Active ZOLOFT 50 MG TAB 1 po qd SERTRALINE HCL 618693 97528 No Longer Active Abdirahman Rios MD Active AMOXICILLIN 875 MG TABS 1 tab by mouth twice daily 201 08/09/13 AMOXICILLIN 72554717693 No Longer Active Abdirahman Rios MD Activ e AMOXICILLIN 875 MG TABS 1 tab by mouth twice daily 201 07/19/27 AMOXICILLIN 31674887564 No Longer Active Abdirahman Rios MD Activ e BACTRIM DS 800-160 MG TAB 2 tab by mouth twice daily 2 TRIMETHOPRIM-SULFAMETHOXAZOLE 91558563850 No Longer Active Abdirahman Rios MD Active KEFLEX 500 MG CAP 1 po tid x 10 days CEPHALEXIN 93322542073 No Longer Active Abdirahman Rios MD Active AMOXICILLIN 875 MG TABS 1 tab by mouth twice daily 201 07/18/07 AMOXICILLIN 20198492678 No Longer Active Abdirahman Rios MD Activ e BACTRIM DS 800-160 MG TAB 2 tab by mouth twice daily 2 BACTRIM DS 800-160 MG TAB 963587 TRIMETHOPRIM-SULFAMETHOXAZOLE Inactive ZOLOFT 50 MG TAB 1 po qd ZOLOFT 50 MG TAB 3129 41 SERTRALINE HCL Inactive BENADRYL 25 MG CAP 1 po q8hr PRN Congestion BENADRYL 25 MG CAP 0287041 DIPHENHYDRAMINE HCL Inactive 28-0.8 MG TABS Take one by mouth daily 09/20 28-0.8 MG TABS VIT-FE FUMARATE-FA Inactive HYDROCODONE-ACETAMINOPHEN 5-325 MG TABS 1 po q 6hr PRN Pain 2010 HYDROCODONE-ACETAMINOPHEN 5-325 MG TABS 286780 HYDROCODONE-ACETAMINOPHEN Inactive LORATADINE 10 MG TABS 1 tablet by mouth daily LORATADINE 10 MG TABS 687887 LORATADINE Inactive LUIS 3-0.02 MG TABS 1 tablet by mouth daily as directed LUIS 3-0.02 MG TABS 940431 DROSPIRENONE-ETHINYL ESTRADIOL Inactive VITAMINS TABS Take one by mouth daily VITAMINS TABS MV & MIN W/FE-FA TABS Inactive PERCOCET 5-325 MG TABS 1 tablet by mouth every 6 hours as ne eded for pain PERCOCET 5-325 MG TABS 1109755 OXYCODONE-ACETAMIN OPHEN Inactive PREDNISONE 20 MG TAB 2 tabs daily for 4 days, 1 t ab daily for 4 days, 1/2 tab daily for 4 days PREDNISONE 20 MG TAB 067002 PREDNISON E Inactive CLINDAMYCIN HCL 300 MG CAPS 1 po q6hr x 7 days CLINDAMYCIN HCL 300 MG CAPS 163350 CLINDAMYCIN HCL Inactive HYDROCODONE-ACETAMINOPHEN 7.5-325 MG TABS 1 po QID PRN Pain 2011 HYDROCODONE-ACETAMINOPHEN 7.5-325 MG TABS 215087 HYDROCODONE-ACETAMINOPHEN Inactive SPIRONOLACTONE 25 MG TAB 1 tablet by mouth daily 01/22 SPIRONOLACTONE 25 MG TAB 508750 SPIRONOLACTONE Inactive IBUPROFEN 600 MG TAB 1 po q6-8hr PRN IBUPROFEN 600 MG TAB 044450 IBUPROFEN Inactive FERROUS SULFATE 325 (65 FE) MG TABS 1 tablet by mouth twice yung y FERROUS SULFATE 325 (65 FE) MG TABS 587117 FERROUS SULF ATE Inactive HYDROCODONE-ACETAMINOPHEN 7.5-500 MG TABS 1-2 every 4 hours as needed HYDROCODONE-ACETAMINOPHEN 7.5-500 MG TABS HYDROCODONE-ACETAMINOPHEN Inactive GENERESS FE 0.8-25 MG-MCG CHEW Take one by mouth daily GENERESS FE 0.8-25 MG-MCG CHEW [id number] NORETHIN-ETH ESTRADIOL-FE Inactive LORTAB 5 5-500 MG TABS 1/2 to 1 tablet by mouth go ry 4 hours as needed for pain LORTAB 5 5-500 MG TABS HYDROCODONE-A CETAMINOPHEN Inactive BACTRIM DS 800-160 MG TAB 1 tab by mouth twice daily 2 BACTRIM DS 800-160 MG TAB 333768 TRIMETHOPRIM-SULFAMETHOXAZOLE Inac tive HYDROCODONE-ACETAMINOPHEN 5-325 MG TABS 1 po q 6hr PRN Pain 2011 HYDROCODONE-ACETAMINOPHEN 5-325 MG TABS 167360 HYDROCODONE-ACETAMINOPHEN Inactive DOXYCYCLINE HYCLATE 100 MG CAPS Take one (1) tablet by mouth twice a day DOXYCYCLINE HYCLATE 100 MG CAPS 1519954 DOXYCYCLINE HYCLATE Inactive PENICILLIN V POTASSIUM 500 MG TAB 1 four times a day 2 PENICILLIN V POTASSIUM 500 MG TAB 160394 PENICILLIN V POTASSIUM Siri ctive PRISTIQ 50 MG [id number] 1 po qd PRISTIQ 50 MG [id number] DESVENLAFAXINE SUCCINATE Inactive TYLENOL/CODEINE #3 300-30 MG TAB 1-2 po q6hr PRN Pain TYLENOL/CODEINE #3 300-30 MG TAB 945838 ACETAMINOPHEN-CODEINE Inact krishna CEPHALEXIN 500 MG TABS Take one by mouth four times daily, morning, noon, early evening and bedtime. CEPHALEXIN 500 MG TABS 197462 CEPHALEXIN Inactive LORTAB 5 5-500 MG TABS 1/2 to 1 tablet by mouth go ry 6 hours as needed for pain LORTAB 5 5-500 MG TABS HYDROCODONE-A CETAMINOPHEN Inactive AMITRIPTYLINE HCL 25 MG TAB 1 tab by mouth daily 60 minutes before bedtime AMITRIPTYLINE HCL 25 MG TAB 927440 AMITRIPTYLINE HCL Inactive AMOXICILLIN 500 MG TABS 2 tabs PO bid x 10 d 7 AMOXICILLIN 500 MG TABS 736149 AMOXICILLIN Inactive IMPLANON 68 MG IMPL IMPLANTED IN LEFT ARM IMPLANON 68 MG IMPL ETONOGESTREL Inactive HYDROCODONE-ACETAMINOPHEN 5-325 MG TABS 1 PO tid PRN pain 5 HYDROCODONE-ACETAMINOPHEN 5-325 MG TABS 037896 HYDROCODONE-ACETAMIN OPHEN Inactive BACTRIM DS 800-160 MG TAB 1 tab by mouth twice daily 2 BACTRIM DS 800-160 MG TAB 945946 TRIMETHOPRIM-SULFAMETHOXAZOLE Inac tive CEPHALEXIN 500 MG CAPS 1 PO bid x 7 days CEPHALEXIN 500 MG CAPS 697779 CEPHALEXIN Inactive HYDROCODONE-ACETAMINOPHEN 5-325 MG TABS 1 tab by mouth every 6 hours as needed HYDROCODONE-ACETAMINOPHEN 5-325 MG TABS 738813 HYDROCODONE-ACETAMINOPHEN Inactive PROMETHAZINE-CODEINE 6.25-10 MG/5ML SYRP 1 tsp every 6 hrs prn c ough PROMETHAZINE-CODEINE 6.25-10 MG/5ML SYRP 043680 PROMETH AZINE-CODEINE Inactive IBUPROFEN 800 MG TAB 1 pill three times daily as needed for pain IBUPROFEN 800 MG TAB 275739 IBUPROFEN Inactive KEFLEX 500 MG CAP 1 tab po tid KEFLEX 500 MG CAP 996631 CEPHALEXIN Inactive HYDROCODONE-ACETAMINOPHEN 7.5-325 MG TABS 1 four times a day as needed for pain HYDROCODONE-ACETAMINOPHEN 7.5-325 MG TABS 441608 HYDROCODONE-ACETAMINOPHEN Inactive BACTRIM DS 800-160 MG TABS by mouth twice a day 11/05 BACTRIM DS 800-160 MG TABS 219334 SULFAMETHOXAZOLE-TRIMETHOPRIM Inactive IBUPROFEN 800 MG TABS 1 tid prn IBUPROFEN 800 MG TABS 719315 IBUPROFEN Inactive ENDOCET 10-325 MG TABS 1 q 6 hr prn ENDOC ET 10-325 MG TABS 9303853 OXYCODONE-ACETAMINOPHEN Inactive HYDROCODONE-ACETAMINOPHEN 7.5-325 MG TABS 1 by mouth e very 6 hours as needed for pain HYDROCODONE-ACETAMINOPHEN 7.5-325 MG TABS 616928 HYDROCODONE-ACETAMINOPHEN Inactive PERCOCET 7.5-325 MG TABS 1 PO q 8 hrs PRN pain PERCOCET 7.5-325 MG TABS 1279432 OXYCODONE-ACETAMINOPHEN Inactive LIDODERM 5 % PTCH One patch to painful area [place] N. On for 12 hrs, off for 12 hrs. LIDODERM 5 % [facility] 0575305 LIDOCAINE Inactiv e PERCOCET 7.5-325 MG TABS 1 PO tid PRN pain PERCOCET 7.5- 325 MG TABS 0331238 OXYCODONE-ACETAMINOPHEN Inactive MOBIC 15 MG TABS 1 tab daily MOBIC 15 MG TABS 15 2695 MELOXICAM Inactive CYCLOBENZAPRINE HCL 10 MG TABS 1/2 - 1 tab PO tid PRN back p ain, muscle spasm CYCLOBENZAPRINE HCL 10 MG TABS 122715 CYCLOBENZA JOSEPH HCL Inactive LORATADINE 10 MG TABS 1 tablet by mouth daily LORATADINE 10 MG TABS 876935 LORATADINE Inactive HYDROCODONE-ACETAMINOPHEN 10-325 MG TABS 1 by mouth ev chaka 8 hours as needed for pain HYDROCODONE-ACETAMINOPHEN 10-325 MG TABS 200003 HYDROCODONE-ACETAMINOPHEN Inactive LC-5 LIDOCAINE 5 % CREA apply 1 time daily to affected area 2013 LC-5 LIDOCAINE 5 % CREA 5625946 LIDOCAINE (ANORECTAL) In active PERCOCET 5-325 MG TAB 1 every 6 hours as needed PERCOCET 5-325 MG TAB 9575466 OXYCODONE-ACETAMINOPHEN Inactive KEFLEX 500 MG CAP 1 po qid KEFLEX 500 MG CAP 30 9114 CEPHALEXIN Inactive PROAIR HFA 108 (90 BASE) MCG/ACT AERS 2 puff q 4-6 hrs PRN 01/24 PROAIR HFA 108 (90 BASE) MCG/ACT AERS ALBUTEROL SULFATE Inactive PERCOCET 10-325 MG ORAL TABS 1 every 4 hours as needed PERCOCET 10-325 MG ORAL TABS 9753093 OXYCODONE-ACETAMINOPHEN Inactiv e EMLA 2.5-2.5 % EXT CREA apply to skin lesion q 6 hours, prn 2014 EMLA 2.5-2.5 % EXT CREA 712351 LIDOCAINE-PRILOCAINE [place] ctive PERCOCET 10-325 MG TABS 1 tab by mouth every 6 hours , use sparingly for severe pain PERCOCET 10-325 MG TABS 4954695 OXYCODONE-ACETAMINOPHEN Inactive GLUCOPHAGE 500 MG ORAL TABS one by mouth 3 times a day GLUCOPHAGE 500 MG ORAL TABS 557221 METFORMIN HCL Inactive HYDROCODONE-ACETAMINOPHEN 5-325 MG TABS 1 po q6hr PRN pain 06/30 HYDROCODONE-ACETAMINOPHEN 5-325 MG TABS 436394 HYDROCOD ONE-ACETAMINOPHEN Inactive PERCOCET 5-325 MG TAB 1 tab po q 6 -8 hours, prn for severe pain PERCOCET 5-325 MG TAB 4354142 OXYCODONE-ACETAMINOPHEN In active PERCOCET 5-325 MG ORAL TABS 1 every 6 hours as needed PERCOCET 5-325 MG ORAL TABS [id number] OXYCODONE-ACETAMINOPHEN Inactive DICLOFENAC SODIUM 50 MG TBEC 1 tablet by mouth four times da tom PRN Pain DICLOFENAC SODIUM 50 MG TBEC [id number] DICLOFENAC S ODIUM Inactive AUGMENTIN 500-125 MG ORAL TABS 1 by mouth twice a day AUGMENTIN 500-125 MG ORAL TABS [id number] AMOXICILLIN-POT CLAVULANATE I nactive HYDROCODONE-ACETAMINOPHEN 5-325 MG TABS 1 po q6hr PRN Pain 03/09 HYDROCODONE-ACETAMINOPHEN 5-325 MG TABS [id number] HYDROCOD ONE-ACETAMINOPHEN Inactive CYCLOBENZAPRINE HCL 10 MG TABS 1 tablet by mouth three times daily as needed for muscle spasm/pain CYCLOBENZAPRINE HCL 10 MG TABS [id number] CYCLOBENZAPRINE HCL Inactive SPRINTEC 28 0.25-35 MG-MCG TABS 1 pill by mouth daily for bi rth control SPRINTEC 28 0.25-35 MG-MCG TABS [id number] NORGESTIMATE-ETH ESTRADIOL Inactive PERCOCET 5-325 MG TAB 1 tab po q 6 hours, prn severe pain PERCOCET 5-325 MG TAB [id number] OXYCODONE-ACETAMINOPHEN Inactive IBUPROFEN 600 MG ORAL TABS 1 by mouth twice a day 2014 IBUPROFEN 600 MG ORAL TABS [id number] IBUPROFEN Inactive CYMBALTA 30 MG CPEP 1 cap by mouth daily CYMBALTA 30 MG CPEP [id number] DULOXETINE HCL Inactive HYDROCODONE-ACETAMINOPHEN 5-325 MG TABS 1 po q6hr PRN Pain 04/09 HYDROCODONE-ACETAMINOPHEN 5-325 MG TABS 137285 HYDROCOD ONE-ACETAMINOPHEN Inactive TRAZODONE HCL 100 MG TAB 0.5 to 1 po qHS PRN Insomnia TRAZODONE HCL 100 MG TAB [id number] TRAZODONE HCL Inactive ALPRAZOLAM 0.5 MG TABS 1 po BID PRN Anxiety ALPRAZOLAM 0.5 MG TABS 391946 ALPRAZOLAM Inactive [id number]-[id number] 50-325-40 MG ORAL CAPS 1-2 po TID LA N Headache [id number] 50-325-40 MG ORAL CAPS 2 [id number] [id number] Inactive HYDROCODONE-ACETAMINOPHEN 5-325 MG TABS 1 po TID PRN Pain 9 HYDROCODONE-ACETAMINOPHEN 5-325 MG TABS [id number] HYDROCODONE-ACETAMIN OPHEN Inactive PERCOCET 10-325 MG TABS 1 tablet every 8 hours as needed for antonia n PERCOCET 10-325 MG TABS [id number] OXYCODONE-ACETAMINOPHEN Inactive ONDANSETRON 4 MG TBDP 1 q4h PRN nausea ON DANSETRON 4 MG TBDP [id number] ONDANSETRON Inactive VIIBRYD 10 & 20 & 40 MG KIT 1 po qd as directed 07/24 VIIBRYD 10 & 20 & 40 MG KIT VILAZODONE HCL Inactive DICLOFENAC SODIUM 50 MG TBEC 1 tablet by mouth four times da tom PRN Pain DICLOFENAC SODIUM 50 MG TBEC [id number] DICLOFENAC S ODIUM Inactive PERCOCET 10-325 MG ORAL TABS one every 6 hours prn pain PERCOCET 10-325 MG ORAL TABS [id number] OXYCODONE-ACETAMINOPHEN Inactiv e PERCOCET 10-325 MG ORAL TABS take 1 tab by mouth q 4hours as needed for pain PERCOCET 10-325 MG ORAL TABS [id number] OXYCODONE-ACETAMINOPHEN Inactive FLONASE ALLERGY RELIEF 50 MCG/ACT NASAL SUSP One spray in each nostril twice a day. FLONASE ALLERGY RELIEF 50 MCG/ACT NASAL S [facility] 828847 FLUTICASONE PROPIONATE Inactive AUGMENTIN 875-125 MG TAB 1 tab by mouth twice daily with food 20 23/05/16 AUGMENTIN 875-125 MG TAB 519620 AMOXICILLIN-POT [place] Inactive AMOXICILLIN 875 MG TABS 1 tab by mouth twice daily 201 07/18/07 AMOXICILLIN 875 MG TABS 495657 AMOXICILLIN Inactive KEFLEX 500 MG CAP 1 po tid x 10 days KEFLEX 500 MG CAP 430305 CEPHALEXIN Inactive AMOXICILLIN 875 MG TABS 1 tab by mouth twice daily 201 07/19/27 AMOXICILLIN 875 MG TABS 988719 AMOXICILLIN Inactive AMOXICILLIN 875 MG TABS 1 tab by mouth twice daily 201 08/09/13 AMOXICILLIN 875 MG TABS 303917 AMOXICILLIN Inactive CIPRO 500 MG TAB 1 tablet by mouth twice daily CIPRO 500 MG TAB 036008 CIPROFLOXACIN HCL Inactive BACTRIM DS 800-160 MG TAB 1 tab by mouth twice daily 2 BACTRIM DS 800-160 MG TAB 370435 TRIMETHOPRIM-SULFAMETHOXAZOLE Inac tive LEVAQUIN 500 MG TABS 1 PO q day x 7 days LEVAQUIN 500 MG TABS 187191 LEVOFLOXACIN Inactive CLINDAMYCIN HCL 300 MG CAPS 1 po QID x 7 days CLINDAMYCIN HCL 300 MG CAPS 022052 CLINDAMYCIN HCL Inactive AUGMENTIN 875-125 MG TAB 1 tab by mouth twice daily with food 20 22/05/07 AUGMENTIN 875-125 MG TAB 354741 AMOXICILLIN-POT [place] Inactive DIFLUCAN 150 MG TAB 1 qODay x 2 doses DIFLUCAN 150 MG TAB 013038 FLUCONAZOLE Inactive PREDNISONE 20 MG TAB 2 tabs daily for 3 days, 1 t ab daily for 3 days, 1/2 tab daily for 2 days PREDNISONE 20 MG TAB 585963 PREDNISON E Inactive AUGMENTIN 875-125 MG TAB 1 tab by mouth twice daily with food 21/10/13 AUGMENTIN 875-125 MG TAB 773125 AMOXICILLIN-POT [place] Inactive HYDROCODONE-ACETAMINOPHEN 5-325 MG TABS 1 tab by mouth every 6 hours as needed PRN Pain HYDROCODONE-ACETAMINOPHEN 5-325 MG TABS 8 61495 HYDROCODONE-ACETAMINOPHEN Inactive PROMETHAZINE HCL 25 MG TABS 1 four times a day as needed for nausea/vomiting PROMETHAZINE HCL 25 MG TABS 896019 PROMETHAZINE HCL Inactive Advance Directives Directive Description Start Date PERMISSION TO SHARE Immunizations Vaccine Administration Date Value Standard Alf cription Seasonal influenza vaccine, injectable, containing preservative, for > 3 years old (Afluria, FluLaval, Fluzone, Fluvirin, Fluarix, Agriflu(>= 18 yo)) Fluzone (>3 yrs.) [[id number]] Influenza, seasonal, inject able Seasonal influenza vaccine, injectable, preservative free, for > 3 years old (Afluria, FluLaval, Fluzone, Fluvirin, Fluarix, Agriflu(>= 18 yo)) Fluzone preservative free (>3 yrs.) [[id number]] Influenza, seasonal, injectable, preservative free Seasonal influenza vaccine, injectable, containing preservative, for > 3 years old (Afluria, FluLaval, Fluzone, Fluvirin, Fluarix, Agriflu(>= 18 yo)) Fluzone (>3 yrs.) [[id number]] Influenza, seasonal, inject able Seasonal influenza vaccine, injectable, containing preservative, for > 3 years old (Afluria, FluLaval, Fluzone, Fluvirin, Fluarix, Agriflu(>= 18 yo)) Fluzone (>3 yrs.) [[id number]] Influenza, seasonal, inject able dT (Diphtheria and Tetanus) booster given Histor ical Td(adult) unspecified formulation Vital Signs Date Name Value Unit Range Description blood pressure, diastolic - 8462-4 94 mm[Hg] [...] Panel - Chemistry sodium, serum 142 mmol/L 642-253 7223/05/12 potassium, serum 4.8 mmol/L 3.5-5.2 chloride, serum [...] Panel - Chemistry cholesterol, serum 165 mg/dL 386-162 1286/05/12 triglyceride, serum, fasting 524 mg/dL 30-200 HDL cholesterol, serum 24 mg/dL 32-96 cholesterol, serum 181 mg/dL 986-636 2473/09/01 triglyceride, serum, fasting 341 mg/dL 30-200 HDL [...] negative Encounters Code Encounter Date Provider Facility CPT-77384 Level 3 Est. Patient 21:00:18 PHARMACY INFORMATICS SPECIALIST Rajni danielson [facility] CPT-56559 Level 3 Est. Patient 14:15:00 PHARMACY INFORMATICS SPECIALIST Kalpesh goins MD [facility] CPT-74293 Level 2 Est. Patient 19:57:52 PHARMACY INFORMATICS SPECIALIST Rajni Oconnor jagjit [facility] CPT-75234 Level 3 Est. Patient 16:58:40 PHARMACY INFORMATICS SPECIALIST Bj funes MD [facility] CPT-12297 Level 3 Est. Patient 08:51:33 CDT Kalpesh goins MD [facility] CPT-60205 Level 4 Est. Patient 14:14:53 CDT Abdirahman Rios MD [facility] CPT-97829 Level 3 Est. Patient 15:47:40 CDT Kalpesh goins MD [facility] CPT-80752 Level 3 Est. Patient 10:57:26 CDT Abdirahman Rios MD [facility] CPT-61143 Level 3 Est. Patient 14:29:53 CDT Abhinav Galvan MD [facility] CPT-22149 Level 2 Est. Patient 16:33:01 CDT Kalpesh goins MD [facility] CPT-25889 Level 4 Est. Patient 16:44:56 CDT Abdirahman Rios MD [facility] CPT-70628 Level 2 Est. Patient 07:49:32 CDT Kalpesh goins MD [facility] CPT-78449 Level 3 New Patient 15:47:11 PHARMACY INFORMATICS SPECIALIST Bj huber MD [facility] CPT-13629 Level 4 Est. Patient 14:37:38 PHARMACY INFORMATICS SPECIALIST Abdirahman Rios MD [facility]-38523 Level 2 Est. Patient 13:32:17 PHARMACY INFORMATICS SPECIALIST Kalpesh goins MD [facility]-09035 Level 3 Est. Patient 17:32:57 PHARMACY INFORMATICS SPECIALIST Edilberto tiwari [facility]-23206 Level 3 Est. Patient 17:22:33 PHARMACY INFORMATICS SPECIALIST Edilberto tiwari [facility] CPT-07686 Level 2 Est. Patient 16:57:09 PHARMACY INFORMATICS SPECIALIST Kalpesh goins MD [facility]-36377 Level 3 Est. Patient 14:03:08 PHARMACY INFORMATICS SPECIALIST Abdirahman Rios MD [facility]-67147 Level 3 Est. Patient 18:12:34 CDT Shola Wright [facility] CPT-01493 Level 3 Est. Patient 19:34:46 CDT Shola Wright [facility] CPT-38087 Level 3 Est. Patient 14:19:37 CDT Abdirahman Rios MD [facility] CPT-72290 Level 3 Est. Patient 14:11:58 CDT Kalpesh goins MD [facility]-73987 Level 3 Est. Patient 16:50:[address] [facility] CPT-33512 Level 3 Est. Patient 17:11:32 PHARMACY INFORMATICS SPECIALIST Brandie bates MD PhD [facility]-50658 Level 3 Est. Patient 16:31:47 PHARMACY INFORMATICS SPECIALIST Shola Wright [facility] CPT-77724 Level 3 Est. Patient 17:51:10 PHARMACY INFORMATICS SPECIALIST Abhinav Galvan MD [facility]-72744 Level 4 Est. Patient 12:54:56 PHARMACY INFORMATICS SPECIALIST Kalpesh goins MD [facility]-75660 Level 4 Est. Patient 12:53:56 PHARMACY INFORMATICS SPECIALIST Kalpesh goins MD [facility] CPT-55146 Level 3 Est. Patient 17:56:58 CDT Shoal Wright [facility] CPT-27945 Level 3 Est. Patient 14:26:20 CDT Janak butcher [facility] CPT-44583 Level 3 Est. Patient 09:38:41 CDT Shola Thao Adriana [facility] CPT-76850 Level 3 Est. Patient 14:45:26 CDT Edilberto tiwari [facility] CPT-52089 Level 3 Est. Patient 10:51:33 CDT [facility] Level 3 Est. Patient 11:57:55 PHARMACY INFORMATICS SPECIALIST Shola Thao Adriana [facility] CPT-25708 Level 3 Est. Patient 09:53:33 PHARMACY INFORMATICS SPECIALIST Edilberto tiwari [facility] CPT-83745 Level 3 Est. Patient 14:42:54 PHARMACY INFORMATICS SPECIALIST Abhinav Galvan MD [facility] CPT-19949 Level 3 Est. Patient 15:10:02 CDT Janak butcher [facility] CPT-39538 Level 3 Est. Patient 15:20:20 CDT Theo dennis MD [facility] CPT-12442 Level 2 Est. Patient 14:08:57 CDT Kalpesh goins MD [facility] CPT-45668 Level 3 Est. Patient 13:56:19 CDT Abdirahman Rios MD [facility] CPT-77706 Level 3 Est. Patient 13:59:37 CDT Abdirahman Rios MD [facility] CPT-07183 Level 2 Est. Patient 14:44:59 CDT Kalpesh goins MD [facility] CPT-79736 Level 3 Est. Patient 06:06:23 CDT Edilberto tiwari [facility] CPT-61510 Level 3 Est. Patient 15:23:54 CDT Abdirahman Rios MD [facility] CPT-70254 Level 3 Est. Patient 15:43:49 CDT Abdirahman Rios MD [facility] CPT-30387 Level 3 Est. Patient 12:46:47 PHARMACY INFORMATICS SPECIALIST Abdirahman Rios MD [facility] CPT-85979 Level 3 Est. Patient 08:13:35 PHARMACY INFORMATICS SPECIALIST Abdirahman Rios MD [facility] CPT-37516 Level 2 Est. Patient 09:36:42 PHARMACY INFORMATICS SPECIALIST Abdirahman Rios MD [facility] CPT-57656 Level 3 Est. Patient 10:56:43 CDT Abdirahman Rios MD [facility] CPT-80412 Level 3 Est. Patient 18:24:52 CDT Abdirahman Rios MD [facility] CPT-30038 Level 3 Est. Patient 13:27:22 CDT Abdirahman Rios MD [facility] Procedures Code Procedure Name Date Entry Date Standard Desc ription CPT-71104 Postop F/U Visit 15:03:49 PHARMACY INFORMATICS SPECIALIST CPT-66876 Postop F/U Visit 14:45:23 PHARMACY INFORMATICS SPECIALIST CPT-14837 Postop F/U Visit 14:11:03 PHARMACY INFORMATICS SPECIALIST CPT-85687 Postop F/U Visit 18:21:21 PHARMACY INFORMATICS SPECIALIST CPT-64983 Postop F/U Visit 15:57:12 PHARMACY INFORMATICS SPECIALIST CPT-68143 Bladder Instillation 16:58:41 PHARMACY INFORMATICS SPECIALIST 6 CPT-51441 Fluzone Quadrivalent Intramuscular Suspe nsion 0.5 ML 15:20:56 PHARMACY INFORMATICS SPECIALIST CPT-11138 Immunization Single Admin 15:20:56 PHARMACY INFORMATICS SPECIALIST 2014 CPT-54088 Excis pilonidal cyst simple 08:51:34 CDT 20 22/04/20 CPT-59469 Venipuncture Draw Fee 14:27:29 CDT CPT-19559 Postop F/U Visit 15:27:43 CDT CPT-30259 Postop F/U Visit 14:40:59 CDT CPT-10605 Postop F/U Visit 15:02:46 CDT CPT-16997 Postop F/U Visit 11:29:00 PHARMACY INFORMATICS SPECIALIST CPT-J0696 Rocephin 1000 mg (Ceftriaxone) 17:22:33 PHARMACY INFORMATICS SPECIALIST CPT-81420 Postop F/U Visit 18:41:07 PHARMACY INFORMATICS SPECIALIST CPT-22561 Postop F/U Visit 08:19:08 PHARMACY INFORMATICS SPECIALIST CPT-44688 Immunization Single Admin 16:41:53 CDT 2013 CPT-85821 Fluzone Quadrivalent Intramuscular Suspe nsion 0.5 ML 16:41:53 CDT CPT-OV Office Visit 16:39:18 CDT CPT-OV Office Visit 16:16:36 CDT CPT-OV Office Visit 15:34:48 CDT CPT-93326 Postop F/U Visit 14:50:12 CDT CPT-77271 Postop F/U Visit 14:41:10 CDT CPT-52651 Venipuncture Draw Fee 11:38:04 PHARMACY INFORMATICS SPECIALIST CPT-57241 Postop F/U Visit 19:02:59 PHARMACY INFORMATICS SPECIALIST CPT-13524 Postop F/U Visit 12:04:54 PHARMACY INFORMATICS SPECIALIST CPT-12958 Administration single or combination vac cine inc oral 15:56:43 CDT CPT-19976 Influenza split virus > age 3 15:56:43 CDT CPT-02067 Hand comp min 3V 14:25:19 CDT CPT-90766 Postop F/U Visit 21:40:51 CDT CPT-84969 Postop F/U Visit 10:58:43 CDT CPT-61383 Administration single or combination vac cine inc oral 12:33:54 PHARMACY INFORMATICS SPECIALIST CPT-74027 Influenza Preservative Free split virus >age 3 12:33:54 PHARMACY INFORMATICS SPECIALIST CPT-22661 Administration single or combination vac cine inc oral 09:30:51 CDT CPT-85998 Influenza split virus > age 3 09:30:51 CDT CPT-77453 Postop F/U Visit 15:14:53 CDT CPT-10724 Postop F/U Visit 13:50:14 CDT CPT-30627 Postop F/U Visit 13:34:52 CDT CPT-OV Office Visit 16:55:03 CDT CPT-05940 [place] of cervix w bx ECC 13:32:50 CDT 10/19 CPT-J1885 Toradol 60 mg (Ketorolac) 15:31:59 CDT 2011 CPT-J1885 Toradol 60 mg (Ketorolac) 15:23:54 CDT 2011 CPT-09022 Visit 11:34:37 PHARMACY INFORMATICS SPECIALIST CPT-13045 Visit 10:52:39 PHARMACY INFORMATICS SPECIALIST CPT-04033 Visit 10:12:02 PHARMACY INFORMATICS SPECIALIST CPT-95958 Visit 11:22:43 PHARMACY INFORMATICS SPECIALIST CPT-71178 Visit 11:24:12 PHARMACY INFORMATICS SPECIALIST CPT-75342 Visit 10:47:05 PHARMACY INFORMATICS SPECIALIST CPT-OV Office Visit 10:26:16 PHARMACY INFORMATICS SPECIALIST CPT-OV Office Visit 15:34:31 PHARMACY INFORMATICS SPECIALIST CPT-59926 Visit 10:42:08 PHARMACY INFORMATICS SPECIALIST CPT-08867 Visit 10:52:45 PHARMACY INFORMATICS SPECIALIST CPT-000 Give Appropriate Flu Vaccine 16:56:41 CDT 2 CPT-38239 Administration single or combination vac cine inc oral 10:33:21 CDT CPT-55421 Influenza split virus > age 3 10:33:21 CDT CPT-36229 Visit 13:23:09 CDT CPT-51584 Visit 18:24:52 CDT CPT-27322 Sono OB comp > 14 weeks 12:07:49 CDT 04/07
--- OUTSIDE RECORDS SUMMARY | 2020-01-18 16:18 | XMS REPORT | Clinical Summary ---
Author Author Admin, Jeri Rashid Organization [facility] Address Unknown Phone Unavailable Allergies, Adverse [...] NEC Abscess, perirectal 566 Active Hira roman TECHNICAL AIDE Abscess of anal and rectal regions , [...] Contact dermatitis due to poison marilee ICD-692.6 Joes M Rios MD Back strain ICD-847.9 Jose M Rios MD Sinusitis, acute ICD-461.9 Jose M Casas MD AFTERCARE FOLLOW SURGERY SKIN&SUBCUT TISSUE NEC ICD-V58.77 Inactive Abdirahman Rios MD Impetigo ICD-684 Jose M Rios MD 08/24 Medication List Medication Instructions Start Date Stop Date Generic Name NDC Status Provider Patient Instruction HYDROCODONE-ACETAMINOPHEN 5-325 MG TABS 1 po TID PRN Pain 3 HYDROCODONE-ACETAMINOPHEN [id number] Active Abdirahman Rios MD Active [id number] 50-325-40 MG ORAL CAPS 1-2 po TID MT N Headache [id number] Active Abdirahman Rios MD Active AUGMENTIN 875-125 MG TAB 1 tab by mouth twice daily with food 20 21/10/13 AMOXICILLIN-POT CLAVULANATE 24873312324 No Longer Active Ursula Moser APRN Active PERCOCET 10-325 MG ORAL TABS 1 every 4 hours as needed OXYCODONE-ACETAMINOPHEN 48783753993 Active Hira Moser APRN Active PROAIR HFA 108 (90 BASE) MCG/ACT AERS 2 puff q 4-6 hrs PRN 01/24 ALBUTEROL SULFATE 83582965821 No Longer Active Kalpesh Dong MD Active ALPRAZOLAM 0.5 MG TABS 1 po BID PRN Anxiety ALPRA ZOLAM 33608325687 Active Abdirahman Rios MD Active EMLA 2.5-2.5 % EXT CREA apply to skin lesion q 6 hours, prn LIDOCAINE-PRILOCAINE 73804499304 Active Hira Moser APRN Active CYCLOBENZAPRINE HCL 10 MG TABS 1 tablet by mouth three times daily as needed for muscle spasm/pain CYCLOBENZAPRINE HCL 09945945523 Active Abdirahman Rios MD Active PREDNISONE 20 MG TAB 2 tabs daily for 3 days, 1 t ab daily for 3 days, 1/2 tab daily for 2 days PREDNISONE 97079645514 No Longer Active Abdirahman Rios MD Active KEFLEX 500 MG CAP 1 po qid CEPHALEXIN 515123362 20 No Longer Active Kalpesh Dong MD Active PERCOCET 5-325 MG TAB 1 every 6 hours as needed OXYCODONE-ACETAMINOPHEN 91658583003 No Longer Active Shola MCGILL Active LC-5 LIDOCAINE 5 % CREA apply 1 time daily to affected area 2013 LIDOCAINE (ANORECTAL) 00685368555 No Longer Active Hira garciaell TECHNICAL AIDE Active HYDROCODONE-ACETAMINOPHEN 10-325 MG TABS 1 by mouth ev chaka 8 hours as needed for pain HYDROCODONE-ACETAMINOPHEN 49505172040 No Longer Active Jillina Frazell TECHNICAL AIDE Active LORATADINE 10 MG TABS 1 tablet by mouth daily L ORATADINE 32300552540 No Longer Active Jillina Frazell TECHNICAL AIDE Active DIFLUCAN 150 MG TAB 1 qODay x 2 doses FLUCONAZO LE 27646404650 No Longer Active Jillina Frazell TECHNICAL AIDE Active CYCLOBENZAPRINE HCL 10 MG TABS 1/2 - 1 tab PO tid PRN back p ain, muscle spasm CYCLOBENZAPRINE HCL 82924021340 No Longer Active Karen herson Frazell TECHNICAL AIDE Active AUGMENTIN 875-125 MG TAB 1 tab by mouth twice daily with food 20 22/05/07 AMOXICILLIN-POT CLAVULANATE 48627328795 No Longer Active Loida Rios MD Active MOBIC 15 MG TABS 1 tab daily MELOXICAM 580592235 14 No Longer Active Abdirahman Rios MD Active PERCOCET 7.5-325 MG TABS 1 PO tid PRN pain OXYCODONE-ACETAMINOPHEN 10896349711 No Longer Active Abdirahman Rios MD Active LIDODERM 5 % PTCH One patch to painful area MT N. On for 12 hrs, off for 12 hrs. LIDOCAINE 12918044873 No Longer Active Abdirahman Rios MD Active PERCOCET 7.5-325 MG TABS 1 PO q 8 hrs PRN pain OXYCODONE-ACETAMINOPHEN 39149313535 No Longer Active Shola MCGILL Active HYDROCODONE-ACETAMINOPHEN 7.5-325 MG TABS 1 by mouth e very 6 hours as needed for pain HYDROCODONE-ACETAMINOPHEN 70215017738 No Longer Active Good Julian MD Active CLINDAMYCIN HCL 300 MG CAPS 1 po QID x 7 days CLINDAMYCIN HCL 41146771464 No Longer Active Abdirahman Rios MD Activ e BACTRIM DS 800-160 MG TABS 1 po BID x 7 days 5 SULFAMETHOXAZOLE-TRIMETHOPRIM 61622274240 No Longer Active Abdirahman Rios MD Active ENDOCET 10-325 MG TABS 1 q 6 hr prn OXYCODONE-ACETAMINOPHEN 81447672128 No Longer Active Abdirahman Rios MD Active IBUPROFEN 800 MG TABS 1 tid prn IBUPROFEN 676673 09408 No Longer Active Abdirahman Rios MD Active BACTRIM DS 800-160 MG TABS by mouth twice a day 11/05 SULFAMETHOXAZOLE-TRIMETHOPRIM 88075471637 No Longer Active Good Julian MD Active HYDROCODONE-ACETAMINOPHEN 7.5-325 MG TABS 1 four times a day as needed for pain HYDROCODONE-ACETAMINOPHEN 51706054241 No Longer Activ e Good Julian MD Active KEFLEX 500 MG CAP 1 tab po tid CEPHALEXIN 624748 03807 No Longer Active Jillina Shanti TECHNICAL AIDE Active IBUPROFEN 800 MG TAB 1 pill three times daily as needed for pain IBUPROFEN 77899917436 No Longer Active Kalpesh Dong MD Active PROMETHAZINE-CODEINE 6.25-10 MG/5ML SYRP 1 tsp every 6 hrs prn c ough PROMETHAZINE-CODEINE 41842589274 No Longer Active Kalpesh Carr Active HYDROCODONE-ACETAMINOPHEN 5-325 MG TABS 1 tab by mouth every 6 hours as needed HYDROCODONE-ACETAMINOPHEN 14723609668 No Longer Activ e Shola MCGILL Active CEPHALEXIN 500 MG CAPS 1 PO bid x 7 days CEPHAL EXIN 09322613083 No Longer Active Shola MCGILL Active BACTRIM DS 800-160 MG TAB 1 tab by mouth twice daily 2 TRIMETHOPRIM-SULFAMETHOXAZOLE 20880142243 No Longer Active Kalpesh oDng MD Active HYDROCODONE-ACETAMINOPHEN 5-325 MG TABS 1 PO tid PRN pain 5 HYDROCODONE-ACETAMINOPHEN 59429111036 No Longer Active Abhinav Galvan MD Active IMPLANON 68 MG IMPL IMPLANTED IN LEFT ARM ETONO GESTREL 44538344731 No Longer Active Hira Moser APRN Active AMOXICILLIN 500 MG TABS 2 tabs PO bid x 10 d AM OXICILLIN 16057501200 No Longer Active Kalpesh Dong MD Active LEVAQUIN 500 MG TABS 1 PO q day x 7 days LEVOFL OXACIN 62031552121 No Longer Active Shola MCGILL Active AMITRIPTYLINE HCL 25 MG TAB 1 tab by mouth daily 60 minutes before bedtime AMITRIPTYLINE HCL 70377890429 No Longer Active Shola MCGILL Active LORTAB 5 5-500 MG TABS 1/2 to 1 tablet by mouth go ry 6 hours as needed for pain HYDROCODONE-ACETAMINOPHEN 45970791013 No Longer Active Shola MCGILL Active CEPHALEXIN 500 MG TABS Take one by mouth four times daily, morning, noon, early evening and bedtime. CEPHALEXIN 33242142519 No Long er Active Hira Moser APRN Active TYLENOL/CODEINE #3 300-30 MG TAB 1-2 po q6hr PRN Pain ACETAMINOPHEN-CODEINE 28153596557 No Longer Active Edilberto Marino DO Active PRISTIQ 50 MG [id number] 1 po qd DESVENLAFAXI NE SUCCINATE 83330198289 No Longer Active Edilberto Marino DO Active PENICILLIN V POTASSIUM 500 MG TAB 1 four times a day 2 PENICILLIN V POTASSIUM 63971012056 No Longer Active Edilberto Marino DO Active DOXYCYCLINE HYCLATE 100 MG CAPS Take one (1) tablet by mouth twice a day DOXYCYCLINE HYCLATE 00748748798 No Longer Active Ronnie Galvan MD Active HYDROCODONE-ACETAMINOPHEN 5-325 MG TABS 1 po q 6hr PRN Pain 2011 HYDROCODONE-ACETAMINOPHEN 00447328358 No Longer Active Patri joan Perez RN Active BACTRIM DS 800-160 MG TAB 1 tab by mouth twice daily 2 TRIMETHOPRIM-SULFAMETHOXAZOLE 02299632956 No Longer Active Kalpesh Dong MD Active LORTAB 5 5-500 MG TABS 1/2 to 1 tablet by mouth go ry 4 hours as needed for pain HYDROCODONE-ACETAMINOPHEN 52168705674 No Longer Active Kalpesh Dong MD Active GENERESS FE 0.8-25 MG-MCG CHEW Take one by mouth daily NORETHIN-ETH ESTRADIOL-FE 33553008888 No Longer Active Kalpesh Dong MD Active HYDROCODONE-ACETAMINOPHEN 7.5-500 MG TABS 1-2 every 4 hours as needed HYDROCODONE-ACETAMINOPHEN 57934939704 No Longer Activ e Kalpesh Dong MD Active FERROUS SULFATE 325 (65 FE) MG TABS 1 tablet by mouth twice yung y FERROUS SULFATE 10633083209 No Longer Active Kalpesh Dong MD Active IBUPROFEN 600 MG TAB 1 po q6-8hr PRN IBUPROFEN 70353152532 No Longer Active Kalpesh Dong MD Active SPIRONOLACTONE 25 MG TAB 1 tablet by mouth daily 01/22 SPIRONOLACTONE 81327693708 No Longer Active Kalpesh Dong MD Acti ve HYDROCODONE-ACETAMINOPHEN 7.5-325 MG TABS 1 po QID PRN Pain 2011 HYDROCODONE-ACETAMINOPHEN 98660318695 No Longer Active Kaplesh Dong MD Active CLINDAMYCIN HCL 300 MG CAPS 1 po q6hr x 7 days CLINDAMYCIN HCL 59468720317 No Longer Active Edilberto W Ned DO Active PREDNISONE 20 MG TAB 2 tabs daily for 4 days, 1 t ab daily for 4 days, 1/2 tab daily for 4 days PREDNISONE 86301745893 No Longer Active Edilberto Marino DO Active PERCOCET 5-325 MG TABS 1 tablet by mouth every 6 hours as ne eded for pain OXYCODONE-ACETAMINOPHEN 32066096702 No Longer Active Abdirahman Rios MD Active VITAMINS TABS Take one by mouth daily MV & MIN W/FE-FA TABS 83404180246 No Longer Active Abdirahman Rios MD Active LUIS 3-0.02 MG TABS 1 tablet by mouth daily as directed DROSPIRENONE-ETHINYL ESTRADIOL 96174678202 No Longer Active Abdirahman Rios MD Active LORATADINE 10 MG TABS 1 tablet by mouth daily L ORATADINE 65209134936 No Longer Active Kalpesh Dong MD Active HYDROCODONE-ACETAMINOPHEN 5-325 MG TABS 1 po q 6hr PRN Pain 2010 HYDROCODONE-ACETAMINOPHEN 80467597088 No Longer Active Edilberto Marino DO Active BACTRIM DS 800-160 MG TAB 1 tab by mouth twice daily 2 TRIMETHOPRIM-SULFAMETHOXAZOLE 12045577963 No Longer Active Abdirahman Rios MD Active 28-0.8 MG TABS Take one by mouth daily 09/20 VIT-FE FUMARATE-FA 64767722504 No Longer Active Abdirahman Rios MD Active CIPRO 500 MG TAB 1 tablet by mouth twice daily CIPROFLOXACIN HCL 39125137638 No Longer Active Abdirahman Rios MD Active BENADRYL 25 MG CAP 1 po q8hr PRN Congestion DIPHENHYDRAMINE HCL 72076139843 No Longer Active Abdirahman Rios MD Active ZOLOFT 50 MG TAB 1 po qd SERTRALINE HCL 281355 52314 No Longer Active Abdirahman Rios MD Active AMOXICILLIN 875 MG TABS 1 tab by mouth twice daily 201 08/09/13 AMOXICILLIN 40594394448 No Longer Active Abdirahman Rios MD Activ e AMOXICILLIN 875 MG TABS 1 tab by mouth twice daily 201 07/19/27 AMOXICILLIN 60409865001 No Longer Active Abdirahman Rios MD Activ e BACTRIM DS 800-160 MG TAB 2 tab by mouth twice daily 2 TRIMETHOPRIM-SULFAMETHOXAZOLE 81447066447 No Longer Active Abdirahman Rios MD Active KEFLEX 500 MG CAP 1 po tid x 10 days CEPHALEXIN 60801949457 No Longer Active Abdirahman Rios MD Active AMOXICILLIN 875 MG TABS 1 tab by mouth twice daily 201 07/18/07 AMOXICILLIN 02916810148 No Longer Active Abdirahman Rios MD Activ e BACTRIM DS 800-160 MG TAB 2 tab by mouth twice daily 2 BACTRIM DS 800-160 MG TAB TRIMETHOPRIM-SULFAMETHOXAZOLE Inactive ZOLOFT 50 MG TAB 1 po qd ZOLOFT 50 MG TAB 3129 41 SERTRALINE HCL Inactive BENADRYL 25 MG CAP 1 po q8hr PRN Congestion BENADRYL 25 MG CAP 5696685 DIPHENHYDRAMINE HCL Inactive 28-0.8 MG TABS Take one by mouth daily 09/20 28-0.8 MG TABS VIT-FE FUMARATE-FA Inactive HYDROCODONE-ACETAMINOPHEN 5-325 MG TABS 1 po q 6hr PRN Pain 2010 HYDROCODONE-ACETAMINOPHEN 5-325 MG TABS 596157 HYDROCODONE-ACETAMINOPHEN Inactive LORATADINE 10 MG TABS 1 tablet by mouth daily LORATADINE 10 MG TABS 410621 LORATADINE Inactive LUIS 3-0.02 MG TABS 1 tablet by mouth daily as directed LUIS 3-0.02 MG TABS DROSPIRENONE-ETHINYL ESTRADIOL Inactive VITAMINS TABS Take one by mouth daily VITAMINS TABS MV & MIN W/FE-FA TABS Inactive PERCOCET 5-325 MG TABS 1 tablet by mouth every 6 hours as ne eded for pain PERCOCET 5-325 MG TABS 6442326 OXYCODONE-ACETAMIN OPHEN Inactive PREDNISONE 20 MG TAB 2 tabs daily for 4 days, 1 t ab daily for 4 days, 1/2 tab daily for 4 days PREDNISONE 20 MG TAB 372666 PREDNISON E Inactive CLINDAMYCIN HCL 300 MG CAPS 1 po q6hr x 7 days CLINDAMYCIN HCL 300 MG CAPS 505638 CLINDAMYCIN HCL Inactive HYDROCODONE-ACETAMINOPHEN 7.5-325 MG TABS 1 po QID PRN Pain 2011 HYDROCODONE-ACETAMINOPHEN 7.5-325 MG TABS 434749 HYDROCODONE-ACETAMINOPHEN Inactive SPIRONOLACTONE 25 MG TAB 1 tablet by mouth daily 01/22 SPIRONOLACTONE 25 MG TAB 741149 SPIRONOLACTONE Inactive IBUPROFEN 600 MG TAB 1 po q6-8hr PRN IBUPROFEN 600 MG TAB 421248 IBUPROFEN Inactive FERROUS SULFATE 325 (65 FE) MG TABS 1 tablet by mouth twice yung y FERROUS SULFATE 325 (65 FE) MG TABS 947758 FERROUS SULF ATE Inactive HYDROCODONE-ACETAMINOPHEN 7.5-500 MG [...] PRN Pain 2011 HYDROCODONE-ACETAMINOPHEN 5-325 MG TABS 131184 HYDROCODONE-ACETAMINOPHEN Inactive DOXYCYCLINE HYCLATE 100 MG CAPS Take one (1) tablet by mouth twice a day DOXYCYCLINE HYCLATE 100 MG CAPS 775828 DOXYCYCLINE HYCLATE Inactive PENICILLIN V POTASSIUM 500 MG TAB 1 four times a day 2 PENICILLIN V POTASSIUM 500 MG TAB 264064 PENICILLIN V POTASSIUM [place] ctive PRISTIQ 50 MG [id number] 1 po qd PRISTIQ 50 MG [id number] DESVENLAFAXINE SUCCINATE Inactive TYLENOL/CODEINE #3 300-30 MG TAB 1-2 po q6hr PRN Pain TYLENOL/CODEINE #3 300-30 MG TAB 023242 ACETAMINOPHEN-CODEINE Inact krishna CEPHALEXIN 500 MG TABS Take one by mouth four times daily, morning, noon, early evening and bedtime. CEPHALEXIN 500 MG TABS 482109 CEPHALEXIN Inactive LORTAB 5 5-500 MG TABS 1/2 to 1 tablet by mouth go ry 6 hours as needed for pain LORTAB 5 5-500 MG TABS HYDROCODONE-A CETAMINOPHEN Inactive AMITRIPTYLINE HCL 25 MG TAB 1 tab by mouth daily 60 minutes before bedtime AMITRIPTYLINE HCL 25 MG TAB 102951 AMITRIPTYLINE HCL Inactive AMOXICILLIN 500 MG TABS 2 tabs PO bid x 10 d 7 AMOXICILLIN 500 MG TABS 616368 AMOXICILLIN Inactive IMPLANON 68 MG IMPL IMPLANTED IN LEFT ARM IMPLANON 68 MG IMPL ETONOGESTREL Inactive HYDROCODONE-ACETAMINOPHEN 5-325 MG TABS 1 PO tid PRN pain 5 HYDROCODONE-ACETAMINOPHEN 5-325 MG TABS 166592 HYDROCODONE-ACETAMIN OPHEN Inactive BACTRIM DS 800-160 MG TAB 1 tab by mouth twice daily 2 BACTRIM DS 800-160 MG TAB TRIMETHOPRIM-SULFAMETHOXAZOLE Inac tive CEPHALEXIN 500 MG CAPS 1 PO bid x 7 days CEPHALEXIN 500 MG CAPS 633629 CEPHALEXIN Inactive HYDROCODONE-ACETAMINOPHEN 5-325 MG TABS 1 tab by mouth every 6 hours as needed HYDROCODONE-ACETAMINOPHEN 5-325 MG TABS 976604 HYDROCODONE-ACETAMINOPHEN Inactive PROMETHAZINE-CODEINE 6.25-10 MG/5ML SYRP 1 tsp every 6 hrs prn c ough PROMETHAZINE-CODEINE 6.25-10 MG/5ML SYRP 782826 PROMETH AZINE-CODEINE Inactive IBUPROFEN 800 MG TAB 1 pill three times daily as needed for pain IBUPROFEN 800 MG TAB 997354 IBUPROFEN Inactive KEFLEX 500 MG CAP 1 tab po tid KEFLEX 500 MG CAP 655230 CEPHALEXIN Inactive HYDROCODONE-ACETAMINOPHEN 7.5-325 MG TABS 1 four times a day as needed for pain HYDROCODONE-ACETAMINOPHEN 7.5-325 MG TABS 476534 HYDROCODONE-ACETAMINOPHEN Inactive BACTRIM DS 800-160 MG TABS by mouth twice a day 11/05 BACTRIM DS 800-160 MG TABS SULFAMETHOXAZOLE-TRIMETHOPRIM Inactive IBUPROFEN 800 MG TABS 1 tid prn IBUPROFEN 800 MG TABS 222544 IBUPROFEN Inactive ENDOCET 10-325 MG TABS 1 q 6 hr prn ENDOC ET 10-325 MG TABS 9534565 OXYCODONE-ACETAMINOPHEN Inactive HYDROCODONE-ACETAMINOPHEN 7.5-325 MG TABS 1 by mouth e very 6 hours as needed for pain HYDROCODONE-ACETAMINOPHEN 7.5-325 MG TABS 997612 HYDROCODONE-ACETAMINOPHEN Inactive PERCOCET 7.5-325 MG TABS 1 PO q 8 hrs PRN pain PERCOCET 7.5-325 MG TABS 2460398 OXYCODONE-ACETAMINOPHEN Inactive LIDODERM 5 % PTCH One patch to painful area MT N. On for 12 hrs, off for 12 hrs. LIDODERM 5 % PTCH 3521037 LIDOCAINE Inactiv e PERCOCET 7.5-325 MG TABS 1 PO tid PRN pain PERCOCET 7.5- 325 MG TABS 4629230 OXYCODONE-ACETAMINOPHEN Inactive MOBIC 15 MG TABS 1 tab daily MOBIC 15 MG TABS 15 2695 MELOXICAM Inactive CYCLOBENZAPRINE HCL 10 MG TABS 1/2 - 1 tab PO tid PRN back p ain, muscle spasm CYCLOBENZAPRINE HCL 10 MG TABS 765092 CYCLOBENZA JOSEPH HCL Inactive LORATADINE 10 MG TABS 1 tablet by mouth daily LORATADINE 10 MG TABS 276266 LORATADINE Inactive HYDROCODONE-ACETAMINOPHEN 10-325 MG TABS 1 by mouth ev chaka 8 hours as needed for pain HYDROCODONE-ACETAMINOPHEN 10-325 MG TABS 065356 HYDROCODONE-ACETAMINOPHEN Inactive LC-5 LIDOCAINE 5 % CREA apply 1 time daily to affected area 2013 LC-5 LIDOCAINE 5 % CREA LIDOCAINE (ANORECTAL) In active PERCOCET 5-325 MG TAB 1 every 6 hours as needed PERCOCET 5-325 MG TAB 4862622 OXYCODONE-ACETAMINOPHEN Inactive KEFLEX 500 MG CAP 1 po qid KEFLEX 500 MG CAP 30 9114 CEPHALEXIN Inactive PROAIR HFA 108 (90 BASE) MCG/ACT AERS 2 puff q 4-6 hrs PRN 01/24 PROAIR HFA 108 (90 BASE) MCG/ACT AERS ALBUTEROL SULFATE Inactive AMOXICILLIN 875 MG TABS 1 tab by mouth twice daily 201 07/18/07 AMOXICILLIN 875 MG TABS 834664 AMOXICILLIN Inactive KEFLEX 500 MG CAP 1 po tid x 10 days KEFLEX 500 MG CAP 909656 CEPHALEXIN Inactive AMOXICILLIN 875 MG TABS 1 tab by mouth twice daily 201 07/19/27 AMOXICILLIN 875 MG TABS 977803 AMOXICILLIN Inactive AMOXICILLIN 875 MG TABS 1 tab by mouth twice daily 201 08/09/13 AMOXICILLIN 875 MG TABS 018557 AMOXICILLIN Inactive CIPRO 500 MG TAB 1 tablet by mouth twice daily CIPRO 500 MG TAB 291010 CIPROFLOXACIN HCL Inactive BACTRIM DS 800-160 MG TAB 1 tab by mouth twice daily 2 BACTRIM DS 800-160 MG TAB TRIMETHOPRIM-SULFAMETHOXAZOLE Inac tive LEVAQUIN 500 MG TABS 1 PO q day x 7 days LEVAQUIN 500 MG TABS 905230 LEVOFLOXACIN Inactive CLINDAMYCIN HCL 300 MG CAPS 1 po QID x 7 days CLINDAMYCIN HCL 300 MG CAPS 934373 CLINDAMYCIN HCL Inactive AUGMENTIN 875-125 MG TAB 1 tab by mouth twice daily with food 20 22/05/07 AUGMENTIN 875-125 MG TAB 401158 AMOXICILLIN-POT CLAVULA [place] Inactive DIFLUCAN 150 MG TAB 1 qODay x 2 doses DIFLUCAN 150 MG TAB 639237 FLUCONAZOLE Inactive PREDNISONE 20 MG TAB 2 tabs daily for 3 days, 1 t ab daily for 3 days, 1/2 tab daily for 2 days PREDNISONE 20 MG TAB 897656 PREDNISON E Inactive AUGMENTIN 875-125 MG TAB 1 tab by mouth twice daily with food 20 21/10/13 AUGMENTIN 875-125 MG TAB 705464 AMOXICILLIN-POT CLAVULA [place] Inactive Advance Directives Directive Description Start Date PERMISSION TO SHARE Immunizations Vaccine Administration Date Value Standard Alf cription Seasonal influenza vaccine, injectable, containing preservative, for > 3 years old (Afluria, FluLaval, Fluzone, Fluvirin, Fluarix, Agriflu(>= 18 yo)) Fluzone (>3 yrs.) [[id number]] Influenza, seasonal, inject able Seasonal influenza vaccine, injectable, preservative free, for > 3 years old (Afluria, FluLaval, Fluzone, Fluvirin, Fluarix, Agriflu(>= 18 yo)) Fluzone preservative free (>3 yrs.) [[id number]] Influenza, seasonal, injectable, preservative free Seasonal influenza vaccine, injectable, containing preservative, for > 3 years old (Afluria, FluLaval, Fluzone, Fluvirin, Fluarix, Agriflu(>= 18 yo)) Fluzone (>3 yrs.) [[id number]] Influenza, seasonal, inject able Seasonal influenza vaccine, injectable, containing preservative, for > 3 years old (Afluria, FluLaval, Fluzone, Fluvirin, Fluarix, Agriflu(>= 18 yo)) Fluzone (>3 yrs.) [[id number]] Influenza, seasonal, inject able dT (Diphtheria and [...] pressure, diastolic - 8462-4 82 mm[Hg] BP ribiero blood pressure, systolic - 8480-6 131 mm[Hg] [...] Panel - Chemistry sodium, serum 142 mmol/L 099-645 7133/05/12 potassium, serum 4.8 mmol/L 3.5-5.2 chloride, serum [...] Panel - Chemistry cholesterol, serum 165 mg/dL 336-805 1813/05/12 triglyceride, serum, fasting 524 mg/dL 30-200 HDL [...] negative Encounters Code Encounter Date Provider Facility CPT-25772 Level 2 Est. Patient 07:49:32 CDT Kalpesh goins MD [facility] CPT-86931 Level 3 New Patient 15:47:11 COOPER APPRENTICE Bj huber MD [facility] CPT-42784 Level 4 Est. Patient 14:37:38 COOPER APPRENTICE Abdirahman Rios MD [facility] CPT-34636 Level 2 Est. Patient 13:32:17 COOPER APPRENTICE Kalpesh goins MD [facility] CPT-24310 Level 3 Est. Patient 17:32:57 COOPER APPRENTICE Edilberto tiwari [facility] CPT-44802 Level 3 Est. Patient 17:22:33 COOPER APPRENTICE Edilberto tiwari [facility] CPT-23065 Level 2 Est. Patient 16:57:09 COOPER APPRENTICE Kalpesh goins MD [facility] CPT-10290 Level 3 Est. Patient 14:03:08 COOPER APPRENTICE Abdirahman Rios MD [facility] CPT-29890 Level 3 Est. Patient 18:12:34 CDT Shola MCGILL [facility] CPT-40794 Level 3 Est. Patient 19:34:46 CDT Shola Wright [facility] CPT-47298 Level 3 Est. Patient 14:19:37 CDT Abdirahman Rios MD [facility] CPT-66912 Level 3 Est. Patient 14:11:58 CDT Kalpesh goins MD [facility] CPT-39557 Level 3 Est. Patient 16:50:00 CDT Michelle BRADFORDP [facility] CPT-91795 Level 3 Est. Patient 17:11:32 COOPER APPRENTICE Brandie bates MD PhD [facility]-84446 Level 3 Est. Patient 16:31:47 COOPER APPRENTICE Shola Wright [facility] CPT-91181 Level 3 Est. Patient 17:51:10 COOPER APPRENTICE Abhinav Galvan MD [facility] CPT-50878 Level 4 Est. Patient 12:54:56 COOPER APPRENTICE Kalpesh goins MD [facility] CPT-64238 Level 4 Est. Patient 12:53:56 COOPER APPRENTICE Kalpesh goins MD [facility] CPT-92604 Level 3 Est. Patient 17:56:58 CDT Shola Wright [facility] CPT-28932 Level 3 Est. Patient 14:26:20 CDT Janak butcher [facility] CPT-03415 Level 3 Est. Patient 09:38:41 CDT Shola Wright [facility] CPT-47026 Level 3 Est. Patient 14:45:26 CDT Edilberto tiwari DO [facility] CPT-99926 Level 3 Est. Patient 10:51:33 [facility] Level 3 Est. Patient 11:57:55 COOPER APPRENTICE Shola Wright [facility] CPT-30916 Level 3 Est. Patient 09:53:33 COOPER APPRENTICE Edilberto tiwari [facility] CPT-70882 Level 3 Est. Patient 14:42:54 COOPER APPRENTICE Abhinav Galvan MD [facility] CPT-47852 Level 3 Est. Patient 15:10:02 CDT Janak butcher [facility] CPT-81609 Level 3 Est. Patient 15:20:20 CDT Theo dennis MD [facility] CPT-50340 Level 2 Est. Patient 14:08:57 CDT Kalpesh goins MD [facility] CPT-49785 Level 3 Est. Patient 13:56:19 CDT Abdirahman Rios MD [facility] CPT-10762 Level 3 Est. Patient 13:59:37 CDT Abdirahman Rios MD [facility] CPT-64595 Level 2 Est. Patient 14:44:59 CDT Kalpesh goins MD [facility] CPT-02949 Level 3 Est. Patient 06:06:23 CDT Edilberto tiwari [facility] CPT-48380 Level 3 Est. Patient 15:23:54 CDT Abdirahman Rios MD [facility] CPT-13257 Level 3 Est. Patient 15:43:49 CDT Abdirahman Rios MD [facility] CPT-08810 Level 3 Est. Patient 12:46:47 COOPER APPRENTICE Abdirahman Rios MD [facility] CPT-53035 Level 3 Est. Patient 08:13:35 COOPER APPRENTICE Abdirahman Rios MD [facility] CPT-53167 Level 2 Est. Patient 09:36:42 COOPER APPRENTICE Abdirahman Rios MD [facility] CPT-06944 Level 3 Est. Patient 10:56:43 CDT Abdirhaman Rios MD [facility] CPT-83984 Level 3 Est. Patient 18:24:52 CDT Abdirahman Rios MD [facility] CPT-60489 Level 3 Est. Patient 13:27:22 CDT Abdirahman Rios MD [facility] Procedures Code Procedure Name Date Entry Date Standard Desc ription CPT-98785 Postop F/U Visit 15:02:46 CDT CPT-13326 Postop F/U Visit 11:29:00 COOPER APPRENTICE CPT-J0696 Rocephin 1000 mg (Ceftriaxone) 17:22:33 COOPER APPRENTICE CPT-79154 Postop F/U Visit 18:41:07 COOPER APPRENTICE CPT-01254 Postop F/U Visit 08:19:08 COOPER APPRENTICE CPT-03034 Immunization Single Admin 16:41:53 CDT 2013 CPT-77844 Fluzone Quadrivalent Intramuscular Suspe nsion 0.5 ML 16:41:53 CDT CPT-OV Office Visit 16:39:18 CDT CPT-OV Office Visit 16:16:36 CDT CPT-OV Office Visit 15:34:48 CDT CPT-68935 Postop F/U Visit 14:50:12 CDT CPT-07983 Postop F/U Visit 14:41:10 CDT CPT-81843 Venipuncture Draw Fee 11:38:04 [employer]OPER APPRENTICE CPT-49152 Postop F/U Visit 19:02:59 COOPER APPRENTICE CPT-40256 Postop F/U Visit 12:04:54 [employer]OPER APPRENTICE CPT-66959 Administration single or combination vac cine inc oral 15:56:43 CDT CPT-41689 Influenza split virus > age 3 15:56:43 CDT CPT-44570 Hand comp min 3V 14:25:19 CDT CPT-15088 Postop F/U Visit 21:40:51 CDT CPT-99461 Postop F/U Visit 10:58:43 CDT CPT-16011 Administration single or combination vac cine inc oral 12:33:54 COOPER APPRENTICE CPT-03399 Influenza Preservative Free split virus >age 3 12:33:54 COOPER APPRENTICE CPT-00466 Administration single or combination vac cine inc oral 09:30:51 CDT CPT-60998 Influenza split virus > age 3 09:30:51 CDT CPT-79492 Postop F/U Visit 15:14:53 CDT CPT-66494 Postop F/U Visit 13:50:14 CDT CPT-03085 Postop F/U Visit 13:34:52 CDT CPT-OV Office Visit 16:55:03 CDT CPT-65026 [place] of cervix w bx ECC 13:32:50 CDT 10/19 CPT-J1885 Toradol 60 mg (Ketorolac) 15:31:59 CDT 2011 CPT-J1885 Toradol 60 mg (Ketorolac) 15:23:54 CDT 2011 CPT-90323 Visit 11:34:37 COOPER APPRENTICE CPT-52692 Visit 10:52:39 COOPER APPRENTICE CPT-77419 Visit 10:12:02 COOPER APPRENTICE CPT-73942 Visit 11:22:43 COOPER APPRENTICE CPT-55940 Visit 11:24:12 COOPER APPRENTICE CPT-21612 Visit 10:47:05 COOPER APPRENTICE CPT-OV Office Visit 10:26:16 COOPER APPRENTICE CPT-OV Office Visit 15:34:31 COOPER APPRENTICE CPT-06521 Visit 10:42:08 COOPER APPRENTICE CPT-71751 Visit 10:52:45 COOPER APPRENTICE CPT-000 Give Appropriate Flu Vaccine 16:56:41 CDT 2 CPT-06641 Administration single or combination vac cine inc oral 10:33:21 CDT CPT-88676 Influenza split virus > age 3 10:33:21 CDT CPT-11109 Visit 13:23:09 CDT CPT-56830 Visit 18:24:52 CDT CPT-45884 Sono OB comp > 14 weeks 12:07:49 CDT 04/07
--- OUTSIDE RECORDS SUMMARY | 2020-01-18 16:19 | XMS REPORT | Clinical Summary ---
Author Author Admin, Jeri Rashid Organization [facility] Address Unknown Phone Unavailable Allergies, Adverse [...] abscess of trunk SINUSITIS, ACUTE 461.9 Resolved Abdiramhan Rios MD Acute sinusitis, unspecified BACK PAIN [...] health care facility Pelvic Pain-Female 625.9 Active jB collier MD Unspecified symptom associated with female genital organs AFTERCARE FOLLOW SURGERY SKIN&SUBCUT TISSUE NEC V58.77 08/27 Resolved Abdirahman Rios MD Aftercare following surgery of the skin and subcutaneous tissue, NEC Abscess, perirectal 566 Active Hira roman CHOIRMASTER Abscess of anal and rectal regions Hypertriglyceridemia [...] 1-2 q 4 hrs prn OXYCODO NE-ACETAMINOPHEN 81851414167 Active Kalpesh Dong MD Active TRAZODONE HCL 100 MG TAB 0.5 to 1 po qHS PRN Insomnia TRAZODONE HCL 82519799019 Active Abdirahman Rios MD Active CYMBALTA 30 MG CPEP 1 cap by mouth daily DULOXE CLEO HCL 06083507006 Active Abdirahman Rios MD Active EMLA 2.5-2.5 % EXT CREA apply to skin lesion q 6 hours, prn 2014 LIDOCAINE-PRILOCAINE 95563093510 No Longer Active Abdirahman Rios MD Active HYDROCODONE-ACETAMINOPHEN 5-325 MG TABS 1 po q6hr PRN pain HYDROCODONE-ACETAMINOPHEN 71522802849 Active Abdirahman Rios MD Active PERCOCET 10-325 MG ORAL TABS 1 every 4 hours as needed OXYCODONE-ACETAMINOPHEN 13105097930 No Longer Active Abdirahman Rios MD Active [id number] 50-325-40 MG ORAL CAPS 1-2 po TID SC N Headache [id number] 03078677258 Active Abdirahman Rios MD Active AUGMENTIN 875-125 MG TAB 1 tab by mouth twice daily with food 20 21/10/13 AMOXICILLIN-POT CLAVULANATE 80426927506 No Longer Active Ursula jasmina Frazell CHOIRMASTER Active PROAIR HFA 108 (90 BASE) MCG/ACT AERS 2 puff q 4-6 hrs PRN 01/24 ALBUTEROL SULFATE 29028205654 No Longer Active Kalpesh Dong MD Active ALPRAZOLAM 0.5 MG TABS 1 po BID PRN Anxiety ALPRA ZOLAM 58440607700 Active Abdirahman Rios MD Active CYCLOBENZAPRINE HCL 10 MG TABS 1 tablet by mouth three times daily as needed for muscle spasm/pain CYCLOBENZAPRINE HCL 86103793147 Active Abdirahman Rios MD Active PREDNISONE 20 MG TAB 2 tabs daily for 3 days, 1 t ab daily for 3 days, 1/2 tab daily for 2 days PREDNISONE 48382268782 No Longer Active Abdirahman Rios MD Active KEFLEX 500 MG CAP 1 po qid CEPHALEXIN 361954503 20 No Longer Active Kalpesh Dong MD Active PERCOCET 5-325 MG TAB 1 every 6 hours as needed OXYCODONE-ACETAMINOPHEN 13505612809 No Longer Active Shola MCGILL Active LC-5 LIDOCAINE 5 % CREA apply 1 time daily to affected area 2013 LIDOCAINE (ANORECTAL) 91821399158 No Longer Active Hira muniz CHOIRMASTER Active HYDROCODONE-ACETAMINOPHEN 10-325 MG TABS 1 by mouth ev chaka 8 hours as needed for pain HYDROCODONE-ACETAMINOPHEN 64950398290 No Longer Active Jillina Karmenl CHOIRMASTER Active LORATADINE 10 MG TABS 1 tablet by mouth daily L ORATADINE 25605828244 No Longer Active Jillina Frazell CHOIRMASTER Active DIFLUCAN 150 MG TAB 1 qODay x 2 doses FLUCONAZO LE 22288506050 No Longer Active Jillina Frazell CHOIRMASTER Active CYCLOBENZAPRINE HCL 10 MG TABS 1/2 - 1 tab PO tid PRN back p ain, muscle spasm CYCLOBENZAPRINE HCL 76842242375 No Longer Active Karen siri Karmenl CHOIRMASTER Active AUGMENTIN 875-125 MG TAB 1 tab by mouth twice daily with food 20 22/05/07 AMOXICILLIN-POT CLAVULANATE 66774771289 No Longer Active Mar tin W Dillow MD Active MOBIC 15 MG TABS 1 tab daily MELOXICAM 767862426 14 No Longer Active Abdirahman Rios MD Active PERCOCET 7.5-325 MG TABS 1 PO tid PRN pain OXYCODONE-ACETAMINOPHEN 95546679626 No Longer Active Abdirahman Rios MD Active LIDODERM 5 % PTCH One patch to painful area SC N. On for 12 hrs, off for 12 hrs. LIDOCAINE 38697111254 No Longer Active Abdirahman Rios MD Active PERCOCET 7.5-325 MG TABS 1 PO q 8 hrs PRN pain OXYCODONE-ACETAMINOPHEN 54650321526 No Longer Active Shola MCGILL Active HYDROCODONE-ACETAMINOPHEN 7.5-325 MG TABS 1 by mouth e very 6 hours as needed for pain HYDROCODONE-ACETAMINOPHEN 59935930563 No Longer Active Good Julian MD Active CLINDAMYCIN HCL 300 MG CAPS 1 po QID x 7 days CLINDAMYCIN HCL 67039485764 No Longer Active Abdirahman Rios MD Activ e BACTRIM DS 800-160 MG TABS 1 po BID x 7 days 5 SULFAMETHOXAZOLE-TRIMETHOPRIM 41940725783 No Longer Active Abdirahman Rios MD Active ENDOCET 10-325 MG TABS 1 q 6 hr prn OXYCODONE-ACETAMINOPHEN 72340487730 No Longer Active Abdirahman Rios MD Active IBUPROFEN 800 MG TABS 1 tid prn IBUPROFEN 648562 33960 No Longer Active Abdirahman Rios MD Active BACTRIM DS 800-160 MG TABS by mouth twice a day 11/05 SULFAMETHOXAZOLE-TRIMETHOPRIM 42905133713 No Longer Active Good Julian MD Active HYDROCODONE-ACETAMINOPHEN 7.5-325 MG TABS 1 four times a day as needed for pain HYDROCODONE-ACETAMINOPHEN 23970252173 No Longer Activ e Good Julian MD Active KEFLEX 500 MG CAP 1 tab po tid CEPHALEXIN 688729 02232 No Longer Active Hira Moser APRN Active IBUPROFEN 800 MG TAB 1 pill three times daily as needed for pain IBUPROFEN 58772503523 No Longer Active Kalpesh Dong MD Active PROMETHAZINE-CODEINE 6.25-10 MG/5ML SYRP 1 tsp every 6 hrs prn c ough PROMETHAZINE-CODEINE 79654142502 No Longer Active Kalpesh Carr Active HYDROCODONE-ACETAMINOPHEN 5-325 MG TABS 1 tab by mouth every 6 hours as needed HYDROCODONE-ACETAMINOPHEN 88303957816 No Longer Activ e Shola MCGILL Active CEPHALEXIN 500 MG CAPS 1 PO bid x 7 days CEPHAL EXIN 31638920960 No Longer Active Shola MCGILL Active BACTRIM DS 800-160 MG TAB 1 tab by mouth twice daily 2 TRIMETHOPRIM-SULFAMETHOXAZOLE 60551016394 No Longer Active Kalpesh Dong MD Active HYDROCODONE-ACETAMINOPHEN 5-325 MG TABS 1 PO tid PRN pain 5 HYDROCODONE-ACETAMINOPHEN 05168662448 No Longer Active Abhinav Galvan MD Active IMPLANON 68 MG IMPL IMPLANTED IN LEFT ARM ETONO GESTREL 73714337044 No Longer Active Hira Moser APRN Active AMOXICILLIN 500 MG TABS 2 tabs PO bid x 10 d AM OXICILLIN 43189982686 No Longer Active Kalpesh Dong MD Active LEVAQUIN 500 MG TABS 1 PO q day x 7 days LEVOFL OXACIN 00482100754 No Longer Active Shola MCGILL Active AMITRIPTYLINE HCL 25 MG TAB 1 tab by mouth daily 60 minutes before bedtime AMITRIPTYLINE HCL 78872681584 No Longer Active Shola MCGILL Active LORTAB 5 5-500 MG TABS 1/2 to 1 tablet by mouth go ry 6 hours as needed for pain HYDROCODONE-ACETAMINOPHEN 20340955797 No Longer Active Shola MCGILL Active CEPHALEXIN 500 MG TABS Take one by mouth four times daily, morning, noon, early evening and bedtime. CEPHALEXIN 45073365946 No Long er Active Hira Moser APRN Active TYLENOL/CODEINE #3 300-30 MG TAB 1-2 po q6hr PRN Pain ACETAMINOPHEN-CODEINE 31802818422 No Longer Active Edilberto Marino DO Active PRISTIQ 50 MG [id number] 1 po qd DESVENLAFAXI NE SUCCINATE 97280687842 No Longer Active Edilberto Marino DO Active PENICILLIN V POTASSIUM 500 MG TAB 1 four times a day 2 PENICILLIN V POTASSIUM 61643394880 No Longer Active Edilberto Marino DO Active DOXYCYCLINE HYCLATE 100 MG CAPS Take one (1) tablet by mouth twice a day DOXYCYCLINE HYCLATE 64912998191 No Longer Active Ronnie Galvan MD Active HYDROCODONE-ACETAMINOPHEN 5-325 MG TABS 1 po q 6hr PRN Pain 2011 HYDROCODONE-ACETAMINOPHEN 47237849357 No Longer Active Jerson Perez RN Active BACTRIM DS 800-160 MG TAB 1 tab by mouth twice daily 2 TRIMETHOPRIM-SULFAMETHOXAZOLE 22212510907 No Longer Active Kalpesh Dong MD Active LORTAB 5 5-500 MG TABS 1/2 to 1 tablet by mouth go ry 4 hours as needed for pain HYDROCODONE-ACETAMINOPHEN 08059741482 No Longer Active Kalpesh Dong MD Active GENERESS FE 0.8-25 MG-MCG CHEW Take one by mouth daily NORETHIN-ETH ESTRADIOL-FE 17314540438 No Longer Active Kalpesh Dong MD Active HYDROCODONE-ACETAMINOPHEN 7.5-500 MG TABS 1-2 every 4 hours as needed HYDROCODONE-ACETAMINOPHEN 62886135638 No Longer Activ e Kalpesh Dong MD Active FERROUS SULFATE 325 (65 FE) MG TABS 1 tablet by mouth twice yung y FERROUS SULFATE 81342936398 No Longer Active Kalpesh Dong MD Active IBUPROFEN 600 MG TAB 1 po q6-8hr PRN IBUPROFEN 27755974667 No Longer Active Kalpesh Dong MD Active SPIRONOLACTONE 25 MG TAB 1 tablet by mouth daily 01/22 SPIRONOLACTONE 97769677524 No Longer Active Kalpesh Dong MD Acti ve HYDROCODONE-ACETAMINOPHEN 7.5-325 MG TABS 1 po QID PRN Pain 2011 HYDROCODONE-ACETAMINOPHEN 58861418214 No Longer Active Kalpesh Dong MD Active CLINDAMYCIN HCL 300 MG CAPS 1 po q6hr x 7 days CLINDAMYCIN HCL 35835695695 No Longer Active Edilberto Marino DO Active PREDNISONE 20 MG TAB 2 tabs daily for 4 days, 1 t ab daily for 4 days, 1/2 tab daily for 4 days PREDNISONE 52688702331 No Longer Active Edilberto Marino DO Active PERCOCET 5-325 MG TABS 1 tablet by mouth every 6 hours as ne eded for pain OXYCODONE-ACETAMINOPHEN 08305585796 No Longer Active Abdirahman Rios MD Active VITAMINS TABS Take one by mouth daily MV & MIN W/FE-FA TABS 66313979999 No Longer Active Abdirahman Rios MD Active LUIS 3-0.02 MG TABS 1 tablet by mouth daily as directed DROSPIRENONE-ETHINYL ESTRADIOL 82988780041 No Longer Active Abdirahman Rios MD Active LORATADINE 10 MG TABS 1 tablet by mouth daily L ORATADINE 65841415893 No Longer Active Kalpesh Dong MD Active HYDROCODONE-ACETAMINOPHEN 5-325 MG TABS 1 po q 6hr PRN Pain 2010 HYDROCODONE-ACETAMINOPHEN 67746135168 No Longer Active Edilberto Marino DO Active BACTRIM DS 800-160 MG TAB 1 tab by mouth twice daily 2 TRIMETHOPRIM-SULFAMETHOXAZOLE 85051506766 No Longer Active Abdirahman Rios MD Active 28-0.8 MG TABS Take one by mouth daily 09/20 VIT-FE FUMARATE-FA 69097241948 No Longer Active Abdirahman Rios MD Active CIPRO 500 MG TAB 1 tablet by mouth twice daily CIPROFLOXACIN HCL 82926738473 No Longer Active Abdirahman Rios MD Active BENADRYL 25 MG CAP 1 po q8hr PRN Congestion DIPHENHYDRAMINE HCL 34978368463 No Longer Active Abdirahman Rios MD Active ZOLOFT 50 MG TAB 1 po qd SERTRALINE HCL 619640 72626 No Longer Active Abdirahman Rios MD Active AMOXICILLIN 875 MG TABS 1 tab by mouth twice daily 201 08/09/13 AMOXICILLIN 54148391326 No Longer Active Abdirahman Rios MD Activ e AMOXICILLIN 875 MG TABS 1 tab by mouth twice daily 201 07/19/27 AMOXICILLIN 70253983847 No Longer Active Abdirahman Rios MD Activ e BACTRIM DS 800-160 MG TAB 2 tab by mouth twice daily 2 TRIMETHOPRIM-SULFAMETHOXAZOLE 09042263251 No Longer Active Abdirahman Rios MD Active KEFLEX 500 MG CAP 1 po tid x 10 days CEPHALEXIN 63264949569 No Longer Active Abdirahman Rios MD Active AMOXICILLIN 875 MG TABS 1 tab by mouth twice daily 201 07/18/07 AMOXICILLIN 46943010665 No Longer Active Abdirahman Rios MD Activ e BACTRIM DS 800-160 MG TAB 2 tab by mouth twice daily 2 BACTRIM DS 800-160 MG TAB TRIMETHOPRIM-SULFAMETHOXAZOLE Inactive ZOLOFT 50 MG TAB 1 po qd ZOLOFT 50 MG TAB 3129 41 SERTRALINE HCL Inactive BENADRYL 25 MG CAP 1 po q8hr PRN Congestion BENADRYL 25 MG CAP 8513666 DIPHENHYDRAMINE HCL Inactive 28-0.8 MG TABS Take one by mouth daily 09/20 28-0.8 MG TABS VIT-FE FUMARATE-FA Inactive HYDROCODONE-ACETAMINOPHEN 5-325 MG TABS 1 po q 6hr PRN Pain 2010 HYDROCODONE-ACETAMINOPHEN 5-325 MG TABS 026534 HYDROCODONE-ACETAMINOPHEN Inactive LORATADINE 10 MG TABS 1 tablet by mouth daily LORATADINE 10 MG TABS 999870 LORATADINE Inactive LUIS 3-0.02 MG TABS 1 tablet by mouth daily as directed LUIS 3-0.02 MG TABS DROSPIRENONE-ETHINYL ESTRADIOL Inactive VITAMINS TABS Take one by mouth daily VITAMINS TABS MV & MIN W/FE-FA TABS Inactive PERCOCET 5-325 MG TABS 1 tablet by mouth every 6 hours as ne eded for pain PERCOCET 5-325 MG TABS 2467538 OXYCODONE-ACETAMIN OPHEN Inactive PREDNISONE 20 MG TAB 2 tabs daily for 4 days, 1 t ab daily for 4 days, 1/2 tab daily for 4 days PREDNISONE 20 MG TAB 310100 PREDNISON E Inactive CLINDAMYCIN HCL 300 MG CAPS 1 po q6hr x 7 days CLINDAMYCIN HCL 300 MG CAPS 785201 CLINDAMYCIN HCL Inactive HYDROCODONE-ACETAMINOPHEN 7.5-325 MG TABS 1 po QID PRN Pain 2011 HYDROCODONE-ACETAMINOPHEN 7.5-325 MG TABS 186444 HYDROCODONE-ACETAMINOPHEN Inactive SPIRONOLACTONE 25 MG TAB 1 tablet by mouth daily 01/22 SPIRONOLACTONE 25 MG TAB 797638 SPIRONOLACTONE Inactive IBUPROFEN 600 MG TAB 1 po q6-8hr PRN IBUPROFEN 600 MG TAB 611263 IBUPROFEN Inactive FERROUS SULFATE 325 (65 FE) MG TABS 1 tablet by mouth twice yung y FERROUS SULFATE 325 (65 FE) MG TABS 597427 FERROUS SULF ATE Inactive HYDROCODONE-ACETAMINOPHEN 7.5-500 MG TABS 1-2 every 4 hours as needed HYDROCODONE-ACETAMINOPHEN 7.5-500 MG TABS HYDROCODONE-ACETAMINOPHEN Inactive GENERESS FE 0.8-25 MG-MCG CHEW Take one by mouth daily GENERESS FE 0.8-25 MG-MCG CHEW 9312870 NORETHIN-ETH ESTRADIOL-FE Inactive LORTAB 5 5-500 MG [...] PRN Pain 2011 HYDROCODONE-ACETAMINOPHEN 5-325 MG TABS 543460 HYDROCODONE-ACETAMINOPHEN Inactive DOXYCYCLINE HYCLATE 100 MG CAPS Take one (1) tablet by mouth twice a day DOXYCYCLINE HYCLATE 100 MG CAPS 409806 DOXYCYCLINE HYCLATE Inactive PENICILLIN V POTASSIUM 500 MG TAB 1 four times a day 2 PENICILLIN V POTASSIUM 500 MG TAB 883819 PENICILLIN V POTASSIUM Siri ctive PRISTIQ 50 MG [id number] 1 po qd PRISTIQ 50 MG [id number] DESVENLAFAXINE SUCCINATE Inactive TYLENOL/CODEINE #3 300-30 MG TAB 1-2 po q6hr PRN Pain TYLENOL/CODEINE #3 300-30 MG TAB 084372 ACETAMINOPHEN-CODEINE Inact krishna CEPHALEXIN 500 MG TABS Take one by mouth four times daily, morning, noon, early evening and bedtime. CEPHALEXIN 500 MG TABS 368996 CEPHALEXIN Inactive LORTAB 5 5-500 MG TABS 1/2 to 1 tablet by mouth go ry 6 hours as needed for pain LORTAB 5 5-500 MG TABS HYDROCODONE-A CETAMINOPHEN Inactive AMITRIPTYLINE HCL 25 MG TAB 1 tab by mouth daily 60 minutes before bedtime AMITRIPTYLINE HCL 25 MG TAB 879454 AMITRIPTYLINE HCL Inactive AMOXICILLIN 500 MG TABS 2 tabs PO bid x 10 d 7 AMOXICILLIN 500 MG TABS 988684 AMOXICILLIN Inactive IMPLANON 68 MG IMPL IMPLANTED IN LEFT ARM IMPLANON 68 MG IMPL ETONOGESTREL Inactive HYDROCODONE-ACETAMINOPHEN 5-325 MG TABS 1 PO tid PRN pain 5 HYDROCODONE-ACETAMINOPHEN 5-325 MG TABS 222314 HYDROCODONE-ACETAMIN OPHEN Inactive BACTRIM DS 800-160 MG TAB 1 tab by mouth twice daily 2 BACTRIM DS 800-160 MG TAB TRIMETHOPRIM-SULFAMETHOXAZOLE Inac tive CEPHALEXIN 500 MG CAPS 1 PO bid x 7 days CEPHALEXIN 500 MG CAPS 412985 CEPHALEXIN Inactive HYDROCODONE-ACETAMINOPHEN 5-325 MG TABS 1 tab by mouth every 6 hours as needed HYDROCODONE-ACETAMINOPHEN 5-325 MG TABS 959836 HYDROCODONE-ACETAMINOPHEN Inactive PROMETHAZINE-CODEINE 6.25-10 MG/5ML SYRP 1 tsp every 6 hrs prn c ough PROMETHAZINE-CODEINE 6.25-10 MG/5ML SYRP 564101 PROMETH AZINE-CODEINE Inactive IBUPROFEN 800 MG TAB 1 pill three times daily as needed for pain IBUPROFEN 800 MG TAB 873872 IBUPROFEN Inactive KEFLEX 500 MG CAP 1 tab po tid KEFLEX 500 MG CAP 795062 CEPHALEXIN Inactive HYDROCODONE-ACETAMINOPHEN 7.5-325 MG TABS 1 four times a day as needed for pain HYDROCODONE-ACETAMINOPHEN 7.5-325 MG TABS 023995 HYDROCODONE-ACETAMINOPHEN Inactive BACTRIM DS 800-160 MG TABS by mouth twice a day 11/05 BACTRIM DS 800-160 MG TABS SULFAMETHOXAZOLE-TRIMETHOPRIM Inactive IBUPROFEN 800 MG TABS 1 tid prn IBUPROFEN 800 MG TABS 044026 IBUPROFEN Inactive ENDOCET 10-325 MG TABS 1 q 6 hr prn ENDOC ET 10-325 MG TABS 6857635 OXYCODONE-ACETAMINOPHEN Inactive HYDROCODONE-ACETAMINOPHEN 7.5-325 MG TABS 1 by mouth e very 6 hours as needed for pain HYDROCODONE-ACETAMINOPHEN 7.5-325 MG TABS 314008 HYDROCODONE-ACETAMINOPHEN Inactive PERCOCET 7.5-325 MG TABS 1 PO q 8 hrs PRN pain PERCOCET 7.5-325 MG TABS 8697766 OXYCODONE-ACETAMINOPHEN Inactive LIDODERM 5 % PTCH One patch to painful area SC N. On for 12 hrs, off for 12 hrs. LIDODERM 5 % PTCH 2193258 LIDOCAINE Inactiv e PERCOCET 7.5-325 MG TABS 1 PO tid PRN pain PERCOCET 7.5- 325 MG TABS 9919429 OXYCODONE-ACETAMINOPHEN Inactive MOBIC 15 MG TABS 1 tab daily MOBIC 15 MG TABS 15 2695 MELOXICAM Inactive CYCLOBENZAPRINE HCL 10 MG TABS 1/2 - 1 tab PO tid PRN back p ain, muscle spasm CYCLOBENZAPRINE HCL 10 MG TABS 676731 CYCLOBENZA JOSEPH HCL Inactive LORATADINE 10 MG TABS 1 tablet by mouth daily LORATADINE 10 MG TABS 946117 LORATADINE Inactive HYDROCODONE-ACETAMINOPHEN 10-325 MG TABS 1 by mouth ev chaka 8 hours as needed for pain HYDROCODONE-ACETAMINOPHEN 10-325 MG TABS 068379 HYDROCODONE-ACETAMINOPHEN Inactive LC-5 LIDOCAINE 5 % CREA apply 1 time daily to affected area 2013 LC-5 LIDOCAINE 5 % CREA LIDOCAINE (ANORECTAL) In active PERCOCET 5-325 MG TAB 1 every 6 hours as needed PERCOCET 5-325 MG TAB 3786543 OXYCODONE-ACETAMINOPHEN Inactive KEFLEX 500 MG CAP 1 po qid KEFLEX 500 MG CAP 30 9114 CEPHALEXIN Inactive PROAIR HFA 108 (90 BASE) MCG/ACT AERS 2 puff q 4-6 hrs PRN 01/24 PROAIR HFA 108 (90 BASE) MCG/ACT AERS ALBUTEROL SULFATE Inactive PERCOCET 10-325 MG ORAL TABS 1 every 4 hours as needed PERCOCET 10-325 MG ORAL TABS 8056059 OXYCODONE-ACETAMINOPHEN Inactiv e EMLA 2.5-2.5 % EXT CREA apply to skin lesion q 6 hours, prn 2014 EMLA 2.5-2.5 % EXT CREA 025743 LIDOCAINE-PRILOCAINE Tamiment ctive AMOXICILLIN 875 MG TABS 1 tab by mouth twice daily 201 07/18/07 AMOXICILLIN 875 MG TABS 477234 AMOXICILLIN Inactive KEFLEX 500 MG CAP 1 po tid x 10 days KEFLEX 500 MG CAP 159250 CEPHALEXIN Inactive AMOXICILLIN 875 MG TABS 1 tab by mouth twice daily 201 07/19/27 AMOXICILLIN 875 MG TABS 492859 AMOXICILLIN Inactive AMOXICILLIN 875 MG TABS 1 tab by mouth twice daily 201 08/09/13 AMOXICILLIN 875 MG TABS 958448 AMOXICILLIN Inactive CIPRO 500 MG TAB 1 tablet by mouth twice daily CIPRO 500 MG TAB 482014 CIPROFLOXACIN HCL Inactive BACTRIM DS 800-160 MG TAB 1 tab by mouth twice daily 2 BACTRIM DS 800-160 MG TAB TRIMETHOPRIM-SULFAMETHOXAZOLE Inac tive LEVAQUIN 500 MG TABS 1 PO q day x 7 days LEVAQUIN 500 MG TABS 266166 LEVOFLOXACIN Inactive CLINDAMYCIN HCL 300 MG CAPS 1 po QID x 7 days CLINDAMYCIN HCL 300 MG CAPS 562850 CLINDAMYCIN HCL Inactive AUGMENTIN 875-125 MG TAB 1 tab by mouth twice daily with food 20 22/05/07 AUGMENTIN 875-125 MG TAB 240800 AMOXICILLIN-POT CLAVULA [place] Inactive DIFLUCAN 150 MG TAB 1 qODay x 2 doses DIFLUCAN 150 MG TAB 982113 FLUCONAZOLE Inactive PREDNISONE 20 MG TAB 2 tabs daily for 3 days, 1 t ab daily for 3 days, 1/2 tab daily for 2 days PREDNISONE 20 MG TAB 294084 PREDNISON E Inactive AUGMENTIN 875-125 MG TAB 1 tab by mouth twice daily with food 20 21/10/13 AUGMENTIN 875-125 MG TAB 552307 AMOXICILLIN-POT CLAVULA [place] Inactive Advance Directives Directive Description Start Date PERMISSION TO SHARE Immunizations Vaccine Administration Date Value Standard Alf cription Seasonal influenza vaccine, injectable, containing preservative, for > 3 years old (Afluria, FluLaval, Fluzone, Fluvirin, Fluarix, Agriflu(>= 18 yo)) Fluzone (>3 yrs.) [[id number]] Influenza, seasonal, inject able Seasonal influenza vaccine, injectable, preservative free, for > 3 years old (Afluria, FluLaval, Fluzone, Fluvirin, Fluarix, Agriflu(>= 18 yo)) Fluzone preservative free (>3 yrs.) [[id number]] Influenza, seasonal, injectable, preservative free Seasonal influenza vaccine, injectable, containing preservative, for > 3 years old (Afluria, FluLaval, Fluzone, Fluvirin, Fluarix, Agriflu(>= 18 yo)) Fluzone (>3 yrs.) [[id number]] Influenza, seasonal, inject able Seasonal influenza vaccine, injectable, containing preservative, for > 3 years old (Afluria, FluLaval, Fluzone, Fluvirin, Fluarix, Agriflu(>= 18 yo)) Fluzone (>3 yrs.) [[id number]] Influenza, seasonal, inject able dT (Diphtheria and [...] Panel - Chemistry sodium, serum 142 mmol/L 328-743 2013/05/12 potassium, serum 4.8 mmol/L 3.5-5.2 chloride, serum [...] Panel - Chemistry cholesterol, serum 165 mg/dL 477-189 3927/05/12 triglyceride, serum, fasting 524 mg/dL 30-200 HDL [...] negative Encounters Code Encounter Date Provider Facility CPT-11052 Level 2 Est. Patient 16:33:01 CDT Kalpesh goins MD [facility] CPT-33445 Level 4 Est. Patient 16:44:56 CDT Abdirahman Rios MD [facility] CPT-88878 Level 2 Est. Patient 07:49:32 CDT Kalpesh goins MD [facility] CPT-11988 Level 3 New Patient 15:47:11 LUBR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 Bj huber MD [facility]-15674 Level 4 Est. Patient 14:37:38 LUBR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 Abdirahman Rios MD [facility] CPT-34230 Level 2 Est. Patient 13:32:17 LUBR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 Kalpesh goins MD [facility]-95215 Level 3 Est. Patient 17:32:57 LUBR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 Edilberto tiwari DO [facility] CPT-02995 Level 3 Est. Patient 17:22:33 LUBR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 Edilberto tiwari DO [facility] CPT-13197 Level 2 Est. Patient 16:57:09 LUBR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 Kalpesh goins MD [facility]-51714 Level 3 Est. Patient 14:03:08 LUBR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 Abdirahman Rios MD [facility] CPT-30777 Level 3 Est. Patient 18:12:34 CDT Shola Wright [facility] CPT-86506 Level 3 Est. Patient 19:34:46 CDT Shola Wright [facility] CPT-37182 Level 3 Est. Patient 14:19:37 CDT Abdirahman Rios MD [facility]-89153 Level 3 Est. Patient 14:11:58 CDT Kalpesh goins MD [facility]-76433 Level 3 Est. Patient 16:50:00 CDT Michelle MERCADO [facility] CPT-69712 Level 3 Est. Patient 17:11:32 LUBR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 Brandie bates MD PhD [facility] CPT-52382 Level 3 Est. Patient 16:31:47 LUBR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 Shola Wright [facility] CPT-38632 Level 3 Est. Patient 17:51:10 LUBR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 Abhinav Galvan MD [facility] CPT-66097 Level 4 Est. Patient 12:54:56 LUBR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 Kalpesh goins MD [facility] CPT-70581 Level 4 Est. Patient 12:53:56 LUBR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 Kalpesh goins MD [facility] CPT-57790 Level 3 Est. Patient 17:56:58 CDT Shola Wright [facility] CPT-30418 Level 3 Est. Patient 14:26:20 CDT Janak butcher [facility] CPT-48187 Level 3 Est. Patient 09:38:41 CDT Shola Thao [facility] CPT-95785 Level 3 Est. Patient 14:45:26 CDT Edilberto tiwari [facility] CPT-18839 Level 3 Est. Patient 10:51:33 CDT Hira muniz [facility] CPT-57253 Level 3 Est. Patient 11:57:55 LUBR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 Shola Thao Adriana [facility] CPT-10139 Level 3 Est. Patient 09:53:33 LUBR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 Edilberto tiwari [facility] CPT-45391 Level 3 Est. Patient 14:42:54 LUBR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 Abhinav Galvan MD [facility] CPT-73189 Level 3 Est. Patient 15:10:02 CDT Janak butcher [facility] CPT-55084 Level 3 Est. Patient 15:20:20 CDT Theo dennis MD [facility] CPT-98976 Level 2 Est. Patient 14:08:57 CDT Kalpesh goins MD [facility] CPT-40369 Level 3 Est. Patient 13:56:19 CDT Abdirahman Rios MD [facility] CPT-03255 Level 3 Est. Patient 13:59:37 CDT Abdirahman Rios MD [facility] CPT-53202 Level 2 Est. Patient 14:44:59 CDT Kalpesh goins MD [facility] CPT-04631 Level 3 Est. Patient 06:06:23 CDT Edilberto tiwari DO [facility] CPT-55622 Level 3 Est. Patient 15:23:54 CDT Abdirahman Rios MD [facility] CPT-77061 Level 3 Est. Patient 15:43:49 CDT Abdirahman Rois MD [facility] CPT-53235 Level 3 Est. Patient 12:46:47 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 Abdirahman Rios MD [facility] CPT-19783 Level 3 Est. Patient 08:13:35 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 Abdirahman Rios MD [facility] CPT-10340 Level 2 Est. Patient 09:36:42 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 Abdirahman Rios MD [facility] CPT-37443 Level 3 Est. Patient 10:56:43 CDT Abdirahman Rios MD [facility] CPT-91436 Level 3 Est. Patient 18:24:52 CDT Abdirahman Rios MD [facility] CPT-71324 Level 3 Est. Patient 13:27:22 CDT Abdirahman Rios MD [facility] Procedures Code Procedure Name Date Entry Date Standard Desc ription CPT-75468 Postop F/U Visit 14:40:59 CDT CPT-69313 Postop F/U Visit 15:02:46 CDT CPT-41784 Postop F/U Visit 11:29:00 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 CPT-J0696 Rocephin 1000 mg (Ceftriaxone) 17:22:33 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 CPT-67936 Postop F/U Visit 18:41:07 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 CPT-51492 Postop F/U Visit 08:19:08 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 CPT-60737 Immunization Single Admin 16:41:53 CDT 2013 CPT-19181 Fluzone Quadrivalent Intramuscular Suspe nsion 0.5 ML 16:41:53 CDT CPT-OV Office Visit 16:39:18 CDT CPT-OV Office Visit 16:16:36 CDT CPT-OV Office Visit 15:34:48 CDT CPT-54153 Postop F/U Visit 14:50:12 CDT CPT-47310 Postop F/U Visit 14:41:10 CDT CPT-58545 Venipuncture Draw Fee 11:38:04 [employer]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 CPT-21651 Postop F/U Visit 19:02:59 [employer]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 CPT-24293 Postop F/U Visit 12:04:54 [employer]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 CPT-73920 Administration single or combination vac cine inc oral 15:56:43 CDT CPT-13105 Influenza split virus > age 3 15:56:43 CDT CPT-23445 Hand comp min 3V 14:25:19 CDT CPT-92993 Postop F/U Visit 21:40:51 CDT CPT-00012 Postop F/U Visit 10:58:43 CDT CPT-85908 Administration single or combination vac cine inc oral 12:33:54 [employer]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 CPT-29355 Influenza Preservative Free split virus >age 3 12:33:54 [employer]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 CPT-07434 Administration single or combination vac cine inc oral 09:30:51 CDT CPT-60873 Influenza split virus > age 3 09:30:51 CDT CPT-36322 Postop F/U Visit 15:14:53 CDT CPT-33029 Postop F/U Visit 13:50:14 CDT CPT-51338 Postop F/U Visit 13:34:52 CDT CPT-OV Office Visit 16:55:03 CDT CPT-30046 [place] of cervix w bx ECC 13:32:50 CDT 10/19 CPT-J1885 Toradol 60 mg (Ketorolac) 15:31:59 CDT 2011 CPT-J1885 Toradol 60 mg (Ketorolac) 15:23:54 CDT 2011 CPT-26896 Visit 11:34:37 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 CPT-87622 Visit 10:52:39 [employer]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 CPT-65751 Visit 10:12:02 [employer]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 CPT-72580 Visit 11:22:43 [employer]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 CPT-07208 Visit 11:24:12 [employer]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 CPT-26359 Visit 10:47:05 [employer]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 CPT-OV Office Visit 10:26:16 [employer]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 CPT-OV Office Visit 15:34:31 [employer]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 CPT-00648 Visit 10:42:08 [employer]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 CPT-79672 Visit 10:52:45 [employer]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 CPT-000 Give Appropriate Flu Vaccine 16:56:41 CDT 2 CPT-89829 Administration single or combination vac cine inc oral 10:33:21 CDT CPT-14769 Influenza split virus > age 3 10:33:21 CDT CPT-58249 Visit 13:23:09 CDT CPT-62002 Visit 18:24:52 CDT CPT-13204 Sono OB comp > 14 weeks 12:07:49 CDT 04/07
--- OUTSIDE RECORDS SUMMARY | 2020-01-18 16:20 | XMS REPORT | Clinical Summary ---
Author Author Admin, Jeri Rashid Organization [facility] Address Unknown Phone Unavailable Allergies, Adverse Reactions, [...] Julian MD Dysuria Hypoglycemia 251.2 Resolved Abdirahman Rois MD Hypoglycemia, unspecified Anxiety 300.00 Active Joann [...] NEC Abscess, perirectal 566 Active Hira roman ETCHER ENAMELING Abscess of anal and rectal regions Hypertriglyceridemia 272.1 Active Abdirahman restrepo MD Pure hyperglyceridemia , INCIDENTAL PROBLEM ICD-V22.2 Inacti ve Abdirahman Rios MD LARGE FOR GESTATIONAL AGE ICD-656.60 Inactive Abdirahman Rios MD MASTALGIA ICD-611.71 Inactive Abdirhaman Carr BRONCHITIS NOT SPECIFIED ACUTE OR CHRONIC [...] MD 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 Stormy Julina MD ENCOUNTER FOR THERAPEUTIC DRUG MONITORING ICD-V58.83 [...] 1 po qHS PRN Insomnia TRAZODONE HCL 64924508505 Active Abdirahman Rios MD Active CYMBALTA 30 MG CPEP 1 cap by mouth daily DULOXE CLEO HCL 39544251123 Active Abdirahman Rios MD Active EMLA 2.5-2.5 % EXT CREA apply to skin lesion q 6 hours, prn 2014 LIDOCAINE-PRILOCAINE 34276904906 No Longer Active Abdirahman iRos MD Active HYDROCODONE-ACETAMINOPHEN 5-325 MG TABS 1 po q6hr PRN pain HYDROCODONE-ACETAMINOPHEN 37804571053 Active Abdirahman Rios MD Active PERCOCET 10-325 MG ORAL TABS 1 every 4 hours as needed OXYCODONE-ACETAMINOPHEN 68189338617 No Longer Active Abdirahman Rios MD Active [id number] 50-325-40 MG ORAL CAPS 1-2 po TID RI N Headache [id number] 86695239036 Active Abdirahman Rios MD Active AUGMENTIN 875-125 MG TAB 1 tab by mouth twice daily with food 20 21/10/13 AMOXICILLIN-POT CLAVULANATE 49946000040 No Longer Active Ursula jasmina Frazell ETCHER ENAMELING Active PROAIR HFA 108 (90 BASE) MCG/ACT AERS 2 puff q 4-6 hrs PRN 01/24 ALBUTEROL SULFATE 23830906430 No Longer Active Kalpesh Dong MD Active ALPRAZOLAM 0.5 MG TABS 1 po BID PRN Anxiety ALPRA ZOLAM 26166599480 Active Abdirahman Rios MD Active CYCLOBENZAPRINE HCL 10 MG TABS 1 tablet by mouth three times daily as needed for muscle spasm/pain CYCLOBENZAPRINE HCL 99727878155 Active Abdirahman Rios MD Active PREDNISONE 20 MG TAB 2 tabs daily for 3 days, 1 t ab daily for 3 days, 1/2 tab daily for 2 days PREDNISONE 64013991504 No Longer Active Abdirahman Rios MD Active KEFLEX 500 MG CAP 1 po qid CEPHALEXIN 988308702 20 No Longer Active Kalpesh Dong MD Active PERCOCET 5-325 MG TAB 1 every 6 hours as needed OXYCODONE-ACETAMINOPHEN 74788389860 No Longer Active Shola MCGILL Active LC-5 LIDOCAINE 5 % CREA apply 1 time daily to affected area 2013 LIDOCAINE (ANORECTAL) 06030378911 No Longer Active Hira muniz ETCHER ENAMELING Active HYDROCODONE-ACETAMINOPHEN 10-325 MG TABS 1 by mouth ev chaka 8 hours as needed for pain HYDROCODONE-ACETAMINOPHEN 52850253308 No Longer Active Jillina Frazell ETCHER ENAMELING Active LORATADINE 10 MG TABS 1 tablet by mouth daily L ORATADINE 99247408775 No Longer Active Jillina Frazell ETCHER ENAMELING Active DIFLUCAN 150 MG TAB 1 qODay x 2 doses FLUCONAZO LE 53443042536 No Longer Active Jillina Frazell ETCHER ENAMELING Active CYCLOBENZAPRINE HCL 10 MG TABS 1/2 - 1 tab PO tid PRN back p ain, muscle spasm CYCLOBENZAPRINE HCL 48425736066 No Longer Active Karen siri Frazell ETCHER ENAMELING Active AUGMENTIN 875-125 MG TAB 1 tab by mouth twice daily with food 20 22/05/07 AMOXICILLIN-POT CLAVULANATE 41193467446 No Longer Active Loida Rios MD Active MOBIC 15 MG TABS 1 tab daily MELOXICAM 691669448 14 No Longer Active Abdirahman Rios MD Active PERCOCET 7.5-325 MG TABS 1 PO tid PRN pain OXYCODONE-ACETAMINOPHEN 31391215191 No Longer Active Abdirahman Rios MD Active LIDODERM 5 % PTCH One patch to painful area RI N. On for 12 hrs, off for 12 hrs. LIDOCAINE 57661996428 No Longer Active Abdirahman Rios MD Active PERCOCET 7.5-325 MG TABS 1 PO q 8 hrs PRN pain OXYCODONE-ACETAMINOPHEN 58901400993 No Longer Active Shola MGCILL Active HYDROCODONE-ACETAMINOPHEN 7.5-325 MG TABS 1 by mouth e very 6 hours as needed for pain HYDROCODONE-ACETAMINOPHEN 82298039821 No Longer Active Good Julian MD Active CLINDAMYCIN HCL 300 MG CAPS 1 po QID x 7 days CLINDAMYCIN HCL 43789525267 No Longer Active Abdirahman Rios MD Activ e BACTRIM DS 800-160 MG TABS 1 po BID x 7 days 5 SULFAMETHOXAZOLE-TRIMETHOPRIM 45562697342 No Longer Active Abdirahman Rios MD Active ENDOCET 10-325 MG TABS 1 q 6 hr prn OXYCODONE-ACETAMINOPHEN 99282777586 No Longer Active Abdirahman Rios MD Active IBUPROFEN 800 MG TABS 1 tid prn IBUPROFEN 169428 73305 No Longer Active Abdirahman Rios MD Active BACTRIM DS 800-160 MG TABS by mouth twice a day 11/05 SULFAMETHOXAZOLE-TRIMETHOPRIM 19854229827 No Longer Active Good Julian MD Active HYDROCODONE-ACETAMINOPHEN 7.5-325 MG TABS 1 four times a day as needed for pain HYDROCODONE-ACETAMINOPHEN 73748214778 No Longer Activ e Good Julian MD Active KEFLEX 500 MG CAP 1 tab po tid CEPHALEXIN 488772 01164 No Longer Active Hira Moser APRN Active IBUPROFEN 800 MG TAB 1 pill three times daily as needed for pain IBUPROFEN 94398086123 No Longer Active Kalpesh Dong MD Active PROMETHAZINE-CODEINE 6.25-10 MG/5ML SYRP 1 tsp every 6 hrs prn c ough PROMETHAZINE-CODEINE 71449041070 No Longer Active Kalpesh Carr Active HYDROCODONE-ACETAMINOPHEN 5-325 MG TABS 1 tab by mouth every 6 hours as needed HYDROCODONE-ACETAMINOPHEN 59978154956 No Longer Activ e Shola MCGILL Active CEPHALEXIN 500 MG CAPS 1 PO bid x 7 days CEPHAL EXIN 95020424105 No Longer Active Shola MCGILL Active BACTRIM DS 800-160 MG TAB 1 tab by mouth twice daily 2 TRIMETHOPRIM-SULFAMETHOXAZOLE 50588928594 No Longer Active Kalpesh Dong MD Active HYDROCODONE-ACETAMINOPHEN 5-325 MG TABS 1 PO tid PRN pain 5 HYDROCODONE-ACETAMINOPHEN 95278186546 No Longer Active Abhinav Galvan MD Active IMPLANON 68 MG IMPL IMPLANTED IN LEFT ARM ETONO GESTREL 92193928005 No Longer Active Jielias Moser APRN Active AMOXICILLIN 500 MG TABS 2 tabs PO bid x 10 d AM OXICILLIN 48682928141 No Longer Active Kalpesh Dong MD Active LEVAQUIN 500 MG TABS 1 PO q day x 7 days LEVOFL OXACIN 51075025210 No Longer Active Shola MCGILL Active AMITRIPTYLINE HCL 25 MG TAB 1 tab by mouth daily 60 minutes before bedtime AMITRIPTYLINE HCL 87039491798 No Longer Active Shola MCGILL Active LORTAB 5 5-500 MG TABS 1/2 to 1 tablet by mouth go ry 6 hours as needed for pain HYDROCODONE-ACETAMINOPHEN 19260855842 No Longer Active Shola MCGILL Active CEPHALEXIN 500 MG TABS Take one by mouth four times daily, morning, noon, early evening and bedtime. CEPHALEXIN 88677188270 No Long er Active Hira Moser APRN Active TYLENOL/CODEINE #3 300-30 MG TAB 1-2 po q6hr PRN Pain ACETAMINOPHEN-CODEINE 46570379070 No Longer Active Edilberto Marino DO Active PRISTIQ 50 MG [id number] 1 po qd DESVENLAFAXI NE SUCCINATE 75359306635 No Longer Active Edilberto Marino DO Active PENICILLIN V POTASSIUM 500 MG TAB 1 four times a day 2 PENICILLIN V POTASSIUM 89919691056 No Longer Active Edilberto Marino DO Active DOXYCYCLINE HYCLATE 100 MG CAPS Take one (1) tablet by mouth twice a day DOXYCYCLINE HYCLATE 28055806103 No Longer Active Ronnie Galvan MD Active HYDROCODONE-ACETAMINOPHEN 5-325 MG TABS 1 po q 6hr PRN Pain 2011 HYDROCODONE-ACETAMINOPHEN 84744735948 No Longer Active Patri joan Perez RN Active BACTRIM DS 800-160 MG TAB 1 tab by mouth twice daily 2 TRIMETHOPRIM-SULFAMETHOXAZOLE 06601837636 No Longer Active Kalpesh Dong MD Active LORTAB 5 5-500 MG TABS 1/2 to 1 tablet by mouth go ry 4 hours as needed for pain HYDROCODONE-ACETAMINOPHEN 06012407793 No Longer Active Kalpesh Dong MD Active GENERESS FE 0.8-25 MG-MCG CHEW Take one by mouth daily NORETHIN-ETH ESTRADIOL-FE 97937790302 No Longer Active Kalpesh Dong MD Active HYDROCODONE-ACETAMINOPHEN 7.5-500 MG TABS 1-2 every 4 hours as needed HYDROCODONE-ACETAMINOPHEN 42107017310 No Longer Activ e Kalpesh Dong MD Active FERROUS SULFATE 325 (65 FE) MG TABS 1 tablet by mouth twice yung y FERROUS SULFATE 16200852980 No Longer Active Kalpesh Dong MD Active IBUPROFEN 600 MG TAB 1 po q6-8hr PRN IBUPROFEN 77794537230 No Longer Active Kalpesh Dong MD Active SPIRONOLACTONE 25 MG TAB 1 tablet by mouth daily 01/22 SPIRONOLACTONE 47392882198 No Longer Active Kalpesh Dong MD Acti ve HYDROCODONE-ACETAMINOPHEN 7.5-325 MG TABS 1 po QID PRN Pain 2011 HYDROCODONE-ACETAMINOPHEN 19793839660 No Longer Active Kalpesh Dong MD Active CLINDAMYCIN HCL 300 MG CAPS 1 po q6hr x 7 days CLINDAMYCIN HCL 10497765587 No Longer Active Edilberto Marino DO Active PREDNISONE 20 MG TAB 2 tabs daily for 4 days, 1 t ab daily for 4 days, 1/2 tab daily for 4 days PREDNISONE 94804358941 No Longer Active Edilberto Marino DO Active PERCOCET 5-325 MG TABS 1 tablet by mouth every 6 hours as ne eded for pain OXYCODONE-ACETAMINOPHEN 89650530848 No Longer Active Abdirahman Rios MD Active VITAMINS TABS Take one by mouth daily MV & MIN W/FE-FA TABS 89838887328 No Longer Active Abdirahman Rios MD Active LUIS 3-0.02 MG TABS 1 tablet by mouth daily as directed DROSPIRENONE-ETHINYL ESTRADIOL 14724694509 No Longer Active Abdirahman Rios MD Active LORATADINE 10 MG TABS 1 tablet by mouth daily L ORATADINE 84176101037 No Longer Active Kalpesh Dong MD Active HYDROCODONE-ACETAMINOPHEN 5-325 MG TABS 1 po q 6hr PRN Pain 2010 HYDROCODONE-ACETAMINOPHEN 53777021664 No Longer Active Edilberto Marino DO Active BACTRIM DS 800-160 MG TAB 1 tab by mouth twice daily 2 TRIMETHOPRIM-SULFAMETHOXAZOLE 13281893472 No Longer Active Abdirahman Rios MD Active 28-0.8 MG TABS Take one by mouth daily 09/20 VIT-FE FUMARATE-FA 54147928201 No Longer Active Abdirahman Rios MD Active CIPRO 500 MG TAB 1 tablet by mouth twice daily CIPROFLOXACIN HCL 83842475067 No Longer Active Abdirahman Rios MD Active BENADRYL 25 MG CAP 1 po q8hr PRN Congestion DIPHENHYDRAMINE HCL 91118481732 No Longer Active Abdirahman Rios MD Active ZOLOFT 50 MG TAB 1 po qd SERTRALINE HCL 173759 04545 No Longer Active Abdirahman Rios MD Active AMOXICILLIN 875 MG TABS 1 tab by mouth twice daily 201 08/09/13 AMOXICILLIN 24680082145 No Longer Active Abdirahman Rios MD Activ e AMOXICILLIN 875 MG TABS 1 tab by mouth twice daily 201 07/19/27 AMOXICILLIN 50294190226 No Longer Active Abdirahman Rios MD Activ e BACTRIM DS 800-160 MG TAB 2 tab by mouth twice daily 2 TRIMETHOPRIM-SULFAMETHOXAZOLE 42150713426 No Longer Active Abdirahman Rios MD Active KEFLEX 500 MG CAP 1 po tid x 10 days CEPHALEXIN 04727136349 No Longer Active Abdirahman Rios MD Active AMOXICILLIN 875 MG TABS 1 tab by mouth twice daily 201 07/18/07 AMOXICILLIN 29934832675 No Longer Active Abdirahman Rios MD Activ e BACTRIM DS 800-160 MG TAB 2 tab by mouth twice daily 2 BACTRIM DS 800-160 MG TAB TRIMETHOPRIM-SULFAMETHOXAZOLE Inactive ZOLOFT 50 MG TAB 1 po qd ZOLOFT 50 MG TAB 3129 41 SERTRALINE HCL Inactive BENADRYL 25 MG CAP 1 po q8hr PRN Congestion BENADRYL 25 MG CAP 7675929 DIPHENHYDRAMINE HCL Inactive 28-0.8 MG TABS Take one by mouth daily 09/20 28-0.8 MG TABS VIT-FE FUMARATE-FA Inactive HYDROCODONE-ACETAMINOPHEN 5-325 MG TABS 1 po q 6hr PRN Pain 2010 HYDROCODONE-ACETAMINOPHEN 5-325 MG TABS 422526 HYDROCODONE-ACETAMINOPHEN Inactive LORATADINE 10 MG TABS 1 tablet by mouth daily LORATADINE 10 MG TABS 879063 LORATADINE Inactive LUIS 3-0.02 MG TABS 1 tablet by mouth daily as directed LUIS 3-0.02 MG TABS DROSPIRENONE-ETHINYL ESTRADIOL Inactive VITAMINS TABS Take one by mouth daily VITAMINS TABS MV & MIN W/FE-FA TABS Inactive PERCOCET 5-325 MG TABS 1 tablet by mouth every 6 hours as ne eded for pain PERCOCET 5-325 MG TABS 2540662 OXYCODONE-ACETAMIN OPHEN Inactive PREDNISONE 20 MG TAB 2 tabs daily for 4 days, 1 t ab daily for 4 days, 1/2 tab daily for 4 days PREDNISONE 20 MG TAB 968776 PREDNISON E Inactive CLINDAMYCIN HCL 300 MG CAPS 1 po q6hr x 7 days CLINDAMYCIN HCL 300 MG CAPS 176597 CLINDAMYCIN HCL Inactive HYDROCODONE-ACETAMINOPHEN 7.5-325 MG TABS 1 po QID PRN Pain 2011 HYDROCODONE-ACETAMINOPHEN 7.5-325 MG TABS 720936 HYDROCODONE-ACETAMINOPHEN Inactive SPIRONOLACTONE 25 MG TAB 1 tablet by mouth daily 01/22 SPIRONOLACTONE 25 MG TAB 049611 SPIRONOLACTONE Inactive IBUPROFEN 600 MG TAB 1 po q6-8hr PRN IBUPROFEN 600 MG TAB 799595 IBUPROFEN Inactive FERROUS SULFATE 325 (65 FE) MG TABS 1 tablet by mouth twice yung y FERROUS SULFATE 325 (65 FE) MG TABS 551140 FERROUS SULF ATE Inactive HYDROCODONE-ACETAMINOPHEN 7.5-500 MG [...] PRN Pain 2011 HYDROCODONE-ACETAMINOPHEN 5-325 MG TABS 598396 HYDROCODONE-ACETAMINOPHEN Inactive DOXYCYCLINE HYCLATE 100 MG CAPS Take one (1) tablet by mouth twice a day DOXYCYCLINE HYCLATE 100 MG CAPS 490574 DOXYCYCLINE HYCLATE Inactive PENICILLIN V POTASSIUM 500 MG TAB 1 four times a day 2 PENICILLIN V POTASSIUM 500 MG TAB 643344 PENICILLIN V POTASSIUM Siri ctive PRISTIQ 50 MG [id number] 1 po qd PRISTIQ 50 MG [id number] DESVENLAFAXINE SUCCINATE Inactive TYLENOL/CODEINE #3 300-30 MG TAB 1-2 po q6hr PRN Pain TYLENOL/CODEINE #3 300-30 MG TAB 306884 ACETAMINOPHEN-CODEINE Inact krishna CEPHALEXIN 500 MG TABS Take one by mouth four times daily, morning, noon, early evening and bedtime. CEPHALEXIN 500 MG TABS 907677 CEPHALEXIN Inactive LORTAB 5 5-500 MG TABS 1/2 to 1 tablet by mouth go ry 6 hours as needed for pain LORTAB 5 5-500 MG TABS HYDROCODONE-A CETAMINOPHEN Inactive AMITRIPTYLINE HCL 25 MG TAB 1 tab by mouth daily 60 minutes before bedtime AMITRIPTYLINE HCL 25 MG TAB 728835 AMITRIPTYLINE HCL Inactive AMOXICILLIN 500 MG TABS 2 tabs PO bid x 10 d 7 AMOXICILLIN 500 MG TABS 876443 AMOXICILLIN Inactive IMPLANON 68 MG IMPL IMPLANTED IN LEFT ARM IMPLANON 68 MG IMPL ETONOGESTREL Inactive HYDROCODONE-ACETAMINOPHEN 5-325 MG TABS 1 PO tid PRN pain 5 HYDROCODONE-ACETAMINOPHEN 5-325 MG TABS 080528 HYDROCODONE-ACETAMIN OPHEN Inactive BACTRIM DS 800-160 MG TAB 1 tab by mouth twice daily 2 BACTRIM DS 800-160 MG TAB TRIMETHOPRIM-SULFAMETHOXAZOLE Inac tive CEPHALEXIN 500 MG CAPS 1 PO bid x 7 days CEPHALEXIN 500 MG CAPS 274865 CEPHALEXIN Inactive HYDROCODONE-ACETAMINOPHEN 5-325 MG TABS 1 tab by mouth every 6 hours as needed HYDROCODONE-ACETAMINOPHEN 5-325 MG TABS 173835 HYDROCODONE-ACETAMINOPHEN Inactive PROMETHAZINE-CODEINE 6.25-10 MG/5ML SYRP 1 tsp every 6 hrs prn c ough PROMETHAZINE-CODEINE 6.25-10 MG/5ML SYRP 048561 PROMETH AZINE-CODEINE Inactive IBUPROFEN 800 MG TAB 1 pill three times daily as needed for pain IBUPROFEN 800 MG TAB 598097 IBUPROFEN Inactive KEFLEX 500 MG CAP 1 tab po tid KEFLEX 500 MG CAP 778371 CEPHALEXIN Inactive HYDROCODONE-ACETAMINOPHEN 7.5-325 MG TABS 1 four times a day as needed for pain HYDROCODONE-ACETAMINOPHEN 7.5-325 MG TABS 123910 HYDROCODONE-ACETAMINOPHEN Inactive BACTRIM DS 800-160 MG TABS by mouth twice a day 11/05 BACTRIM DS 800-160 MG TABS SULFAMETHOXAZOLE-TRIMETHOPRIM Inactive IBUPROFEN 800 MG TABS 1 tid prn IBUPROFEN 800 MG TABS 700735 IBUPROFEN Inactive ENDOCET 10-325 MG TABS 1 q 6 hr prn ENDOC ET 10-325 MG TABS 3963747 OXYCODONE-ACETAMINOPHEN Inactive HYDROCODONE-ACETAMINOPHEN 7.5-325 MG TABS 1 by mouth e very 6 hours as needed for pain HYDROCODONE-ACETAMINOPHEN 7.5-325 MG TABS 809147 HYDROCODONE-ACETAMINOPHEN Inactive PERCOCET 7.5-325 MG TABS 1 PO q 8 hrs PRN pain PERCOCET 7.5-325 MG TABS 2545229 OXYCODONE-ACETAMINOPHEN Inactive LIDODERM 5 % PTCH One patch to painful area RI N. On for 12 hrs, off for 12 hrs. LIDODERM 5 % PTCH 6096407 LIDOCAINE Inactiv e PERCOCET 7.5-325 MG TABS 1 PO tid PRN pain PERCOCET 7.5- 325 MG TABS 4477218 OXYCODONE-ACETAMINOPHEN Inactive MOBIC 15 MG TABS 1 tab daily MOBIC 15 MG TABS 15 2695 MELOXICAM Inactive CYCLOBENZAPRINE HCL 10 MG TABS 1/2 - 1 tab PO tid PRN back p ain, muscle spasm CYCLOBENZAPRINE HCL 10 MG TABS 855158 CYCLOBENZA JOSEPH HCL Inactive LORATADINE 10 MG TABS 1 tablet by mouth daily LORATADINE 10 MG TABS 330463 LORATADINE Inactive HYDROCODONE-ACETAMINOPHEN 10-325 MG TABS 1 by mouth ev chaka 8 hours as needed for pain HYDROCODONE-ACETAMINOPHEN 10-325 MG TABS 748875 HYDROCODONE-ACETAMINOPHEN Inactive LC-5 LIDOCAINE 5 % CREA apply 1 time daily to affected area 2013 LC-5 LIDOCAINE 5 % CREA LIDOCAINE (ANORECTAL) In active PERCOCET 5-325 MG TAB 1 every 6 hours as needed PERCOCET 5-325 MG TAB 7489461 OXYCODONE-ACETAMINOPHEN Inactive KEFLEX 500 MG CAP 1 po qid KEFLEX 500 MG CAP 30 9114 CEPHALEXIN Inactive PROAIR HFA 108 (90 BASE) MCG/ACT AERS 2 puff q 4-6 hrs PRN 01/24 PROAIR HFA 108 (90 BASE) MCG/ACT AERS ALBUTEROL SULFATE Inactive PERCOCET 10-325 MG ORAL TABS 1 every 4 hours as needed PERCOCET 10-325 MG ORAL TABS 9456603 OXYCODONE-ACETAMINOPHEN Inactiv e EMLA 2.5-2.5 % EXT CREA apply to skin lesion q 6 hours, prn 2014 EMLA 2.5-2.5 % EXT CREA 282650 LIDOCAINE-PRILOCAINE Francitas ctive AMOXICILLIN 875 MG TABS 1 tab by mouth twice daily 201 07/18/07 AMOXICILLIN 875 MG TABS 572666 AMOXICILLIN Inactive KEFLEX 500 MG CAP 1 po tid x 10 days KEFLEX 500 MG CAP 715670 CEPHALEXIN Inactive AMOXICILLIN 875 MG TABS 1 tab by mouth twice daily 201 07/19/27 AMOXICILLIN 875 MG TABS 711140 AMOXICILLIN Inactive AMOXICILLIN 875 MG TABS 1 tab by mouth twice daily 201 08/09/13 AMOXICILLIN 875 MG TABS 854559 AMOXICILLIN Inactive CIPRO 500 MG TAB 1 tablet by mouth twice daily CIPRO 500 MG TAB 514326 CIPROFLOXACIN HCL Inactive BACTRIM DS 800-160 MG TAB 1 tab by mouth twice daily 2 BACTRIM DS 800-160 MG TAB TRIMETHOPRIM-SULFAMETHOXAZOLE Inac tive LEVAQUIN 500 MG TABS 1 PO q day x 7 days LEVAQUIN 500 MG TABS 786835 LEVOFLOXACIN Inactive CLINDAMYCIN HCL 300 MG CAPS 1 po QID x 7 days CLINDAMYCIN HCL 300 MG CAPS 916515 CLINDAMYCIN HCL Inactive AUGMENTIN 875-125 MG TAB 1 tab by mouth twice daily with food 20 22/05/07 AUGMENTIN 875-125 MG TAB 942514 AMOXICILLIN-POT CLAVULA [place] Inactive DIFLUCAN 150 MG TAB 1 qODay x 2 doses DIFLUCAN 150 MG TAB 124092 FLUCONAZOLE Inactive PREDNISONE 20 MG TAB 2 tabs daily for 3 days, 1 t ab daily for 3 days, 1/2 tab daily for 2 days PREDNISONE 20 MG TAB 017826 PREDNISON E Inactive AUGMENTIN 875-125 MG TAB 1 tab by mouth twice daily with food 20 21/10/13 AUGMENTIN 875-125 MG TAB 062710 AMOXICILLIN-POT CLAVULA [place] Inactive Advance Directives Directive Description Start Date PERMISSION TO SHARE Immunizations Vaccine Administration Date Value Standard Alf cription Seasonal influenza vaccine, injectable, containing preservative, for > 3 years old (Afluria, FluLaval, Fluzone, Fluvirin, Fluarix, Agriflu(>= 18 yo)) Fluzone (>3 yrs.) [[id number]] Influenza, seasonal, inject able Seasonal influenza vaccine, injectable, preservative free, for > 3 years old (Afluria, FluLaval, Fluzone, Fluvirin, Fluarix, Agriflu(>= 18 yo)) Fluzone preservative free (>3 yrs.) [[id number]] Influenza, seasonal, injectable, preservative free Seasonal influenza vaccine, injectable, containing preservative, for > 3 years old (Afluria, FluLaval, Fluzone, Fluvirin, Fluarix, Agriflu(>= 18 yo)) Fluzone (>3 yrs.) [[id number]] Influenza, seasonal, inject able Seasonal influenza vaccine, injectable, containing preservative, for > 3 years old (Afluria, FluLaval, Fluzone, Fluvirin, Fluarix, Agriflu(>= 18 yo)) Fluzone (>3 yrs.) [[id number]] Influenza, seasonal, inject able dT (Diphtheria and [...] Panel - Chemistry sodium, serum 142 mmol/L 523-249 7310/05/12 potassium, serum 4.8 mmol/L 3.5-5.2 chloride, serum [...] Panel - Chemistry cholesterol, serum 165 mg/dL [phone]/05/12 triglyceride, serum, fasting 524 mg/dL 30-200 HDL [...] negative Encounters Code Encounter Date Provider Facility CPT-97609 Level 4 Est. Patient 16:44:56 CDT Abdirahman Rios MD [facility] CPT-82999 Level 2 Est. Patient 07:49:32 CDT Kalpesh goins MD [facility] CPT-15142 Level 3 New Patient 15:47:11 STEM ROLLER Bj huber MD [facility] CPT-88915 Level 4 Est. Patient 14:37:38 STEM ROLLER Abdirahman Rios MD [facility] CPT-49541 Level 2 Est. Patient 13:32:17 STEM ROLLER Kalpesh goins MD [facility] CPT-64714 Level 3 Est. Patient 17:32:57 STEM ROLLER Edilberto tiwari DO [facility] CPT-24743 Level 3 Est. Patient 17:22:33 STEM ROLLER Edilberto tiwari [facility] CPT-33822 Level 2 Est. Patient 16:57:09 STEM ROLLER Kalpesh goins MD [facility]-46930 Level 3 Est. Patient 14:03:08 STEM ROLLER Abdirahman Rios MD [facility] CPT-59696 Level 3 Est. Patient 18:12:34 CDT Shola Wright [facility] CPT-43416 Level 3 Est. Patient 19:34:46 CDT Shola Wright [facility] CPT-62163 Level 3 Est. Patient 14:19:37 CDT Abdirahman Rios MD [facility] CPT-12293 Level 3 Est. Patient 14:11:58 CDT Kalpesh goins MD [facility] CPT-50157 Level 3 Est. Patient 16:50:00 CDT Michelle MERCADO [facility] CPT-62005 Level 3 Est. Patient 17:11:32 STEM ROLLER Brandie bates MD PhD [facility] CPT-69785 Level 3 Est. Patient 16:31:47 STEM ROLLER Shola Houghsabi [facility] CPT-01903 Level 3 Est. Patient 17:51:10 STEM ROLLER Abhinav Galvan MD [facility] CPT-09099 Level 4 Est. Patient 12:54:56 STEM ROLLER Kalpesh goins MD [facility] CPT-01656 Level 4 Est. Patient 12:53:56 STEM ROLLER Kalpesh goins MD [facility] CPT-52162 Level 3 Est. Patient 17:56:58 CDT Shola Houghsabi [facility] CPT-26156 Level 3 Est. Patient 14:26:20 CDT Janak butcher [facility] CPT-07151 Level 3 Est. Patient 09:38:41 CDT Shola Houghsabi [facility] CPT-07074 Level 3 Est. Patient 14:45:26 CDT Edilberto tiwari DO [facility] CPT-84491 Level 3 Est. Patient 10:51:33 CD[facility] Level 3 Est. Patient 11:57:55 STEM ROLLER Shola MCGILL [facility] CPT-08265 Level 3 Est. Patient 09:53:33 STEM ROLLER Edilberto tiwari [facility] CPT-05300 Level 3 Est. Patient 14:42:54 STEM ROLLER Abhinav Galvan MD [facility] CPT-66312 Level 3 Est. Patient 15:10:02 CDT Janak butcher [facility] CPT-57635 Level 3 Est. Patient 15:20:20 CDT Theo dennis MD [facility]-86408 Level 2 Est. Patient 14:08:57 CDT Kalpesh goins MD [facility] CPT-11635 Level 3 Est. Patient 13:56:19 CDT Abdirahman Rios MD [facility] CPT-09096 Level 3 Est. Patient 13:59:37 CDT Abdirahman Rios MD [facility] CPT-47258 Level 2 Est. Patient 14:44:59 CDT Kalpesh goins MD [facility] CPT-81191 Level 3 Est. Patient 06:06:23 CDT Edilberto tiwari [facility] CPT-05054 Level 3 Est. Patient 15:23:54 CDT Abdirahman Rios MD [facility] CPT-68045 Level 3 Est. Patient 15:43:49 CDT Abdirahman Rios MD [facility] CPT-00512 Level 3 Est. Patient 12:46:47 STEM ROLLER Abdirahman Rios MD [facility] CPT-70269 Level 3 Est. Patient 08:13:35 STEM ROLLER Abdirahman Rios MD [facility] CPT-35705 Level 2 Est. Patient 09:36:42 STEM ROLLER Abdirahman Rios MD [facility] CPT-46808 Level 3 Est. Patient 10:56:43 CDT Abdirahman Rios MD [facility] CPT-35322 Level 3 Est. Patient 18:24:52 CDT Abdirahman Rios MD [facility] CPT-35575 Level 3 Est. Patient 13:27:22 CDT Abdirahman Rios MD [facility] Procedures Code Procedure Name Date Entry Date Standard Desc ription CPT-59185 Postop F/U Visit 14:40:59 CDT CPT-32426 Postop F/U Visit 15:02:46 CDT CPT-14931 Postop F/U Visit 11:29:00 STEM ROLLER CPT-J0696 Rocephin 1000 mg (Ceftriaxone) 17:22:33 STEM ROLLER CPT-80403 Postop F/U Visit 18:41:07 STEM ROLLER CPT-71447 Postop F/U Visit 08:19:08 STEM ROLLER CPT-79307 Immunization Single Admin 16:41:53 CDT 2013 CPT-11958 Fluzone Quadrivalent Intramuscular Suspe nsion 0.5 ML 16:41:53 CDT CPT-OV Office Visit 16:39:18 CDT CPT-OV Office Visit 16:16:36 CDT CPT-OV Office Visit 15:34:48 CDT CPT-62217 Postop F/U Visit 14:50:12 CDT CPT-72845 Postop F/U Visit 14:41:10 CDT CPT-00665 Venipuncture Draw Fee 11:38:04 STEM ROLLER CPT-40668 Postop F/U Visit 19:02:59 STEM ROLLER CPT-73315 Postop F/U Visit 12:04:54 STEM ROLLER CPT-50511 Administration single or combination vac cine inc oral 15:56:43 CDT CPT-15933 Influenza split virus > age 3 15:56:43 CDT CPT-23716 Hand comp min 3V 14:25:19 CDT CPT-12012 Postop F/U Visit 21:40:51 CDT CPT-53263 Postop F/U Visit 10:58:43 CDT CPT-59319 Administration single or combination vac cine inc oral 12:33:54 STEM ROLLER CPT-94198 Influenza Preservative Free split virus >age 3 12:33:54 STEM ROLLER CPT-35835 Administration single or combination vac cine inc oral 09:30:51 CDT CPT-32708 Influenza split virus > age 3 09:30:51 CDT CPT-31809 Postop F/U Visit 15:14:53 CDT CPT-15203 Postop F/U Visit 13:50:14 CDT CPT-89172 Postop F/U Visit 13:34:52 CDT CPT-OV Office Visit 16:55:03 CDT CPT-82430 [place] of cervix w bx ECC 13:32:50 CDT 10/19 CPT-J1885 Toradol 60 mg (Ketorolac) 15:31:59 CDT 2011 CPT-J1885 Toradol 60 mg (Ketorolac) 15:23:54 CDT 2011 CPT-81188 Visit 11:34:37 STEM ROLLER CPT-07275 Visit 10:52:39 STEM ROLLER CPT-38985 Visit 10:12:02 STEM ROLLER CPT-46167 Visit 11:22:43 STEM ROLLER CPT-10056 Visit 11:24:12 STEM ROLLER CPT-57628 Visit 10:47:05 STEM ROLLER CPT-OV Office Visit 10:26:16 STEM ROLLER CPT-OV Office Visit 15:34:31 STEM ROLLER CPT-87770 Visit 10:42:08 STEM ROLLER CPT-12976 Visit 10:52:45 STEM ROLLER CPT-000 Give Appropriate Flu Vaccine 16:56:41 CDT 2 CPT-31448 Administration single or combination vac cine inc oral 10:33:21 CDT CPT-91374 Influenza split virus > age 3 10:33:21 CDT CPT-72483 Visit 13:23:09 CDT CPT-32119 Visit 18:24:52 CDT CPT-57945 Sono OB comp > 14 weeks 12:07:49 CDT 04/07
--- OUTSIDE RECORDS SUMMARY | 2020-01-18 16:20 | XMS REPORT | Clinical Summary ---
Author Author Admin, Jeri Rashid Organization [facility] Address Unknown Phone Unavailable Allergies, [...] of back Sinusitis, acute 461.9 Resolved Abdirahman iRos MD Acute sinusitis, unspecified Hidradenitis 705.83 Active [...] NEC Abscess, perirectal 566 Active Hira roman SOFTWARE SECURITY ARCHITECT Abscess of anal and rectal regions , [...] Generic Name NDC Status Provider Patient Instruction [id number] 50-325-40 MG ORAL CAPS 1-2 po TID MN N Headache [id number] Active Abdirahman Rios MD Active AUGMENTIN 875-125 MG TAB 1 tab by mouth twice daily with food 20 21/10/13 AMOXICILLIN-POT CLAVULANATE 84446695190 No Longer Active Ursula Mosre APRN Active PERCOCET 10-325 MG ORAL TABS 1 every 4 hours as needed OXYCODONE-ACETAMINOPHEN 21245534675 Active Hira Moser APRN Active PROAIR HFA 108 (90 BASE) MCG/ACT AERS 2 puff q 4-6 hrs PRN 01/24 ALBUTEROL SULFATE 01207290409 No Longer Active Kalpesh Dong MD Active ALPRAZOLAM 0.5 MG TABS 1 po BID PRN Anxiety ALPRA ZOLAM 17488989425 Active Abdirahman Rios MD Active EMLA 2.5-2.5 % EXT CREA apply to skin lesion q 6 hours, prn LIDOCAINE-PRILOCAINE 46153287795 Active Hira Moser APRN Active CYCLOBENZAPRINE HCL 10 MG TABS 1 tablet by mouth three times daily as needed for muscle spasm/pain CYCLOBENZAPRINE HCL 26231513304 Active Abdirahman Rios MD Active PREDNISONE 20 MG TAB 2 tabs daily for 3 days, 1 t ab daily for 3 days, 1/2 tab daily for 2 days PREDNISONE 84133663365 No Longer Active Abdirahman Rios MD Active KEFLEX 500 MG CAP 1 po qid CEPHALEXIN 578840083 20 No Longer Active Kalpesh Dong MD Active PERCOCET 5-325 MG TAB 1 every 6 hours as needed OXYCODONE-ACETAMINOPHEN 29624523780 No Longer Active Shola MCGILL Active LC-5 LIDOCAINE 5 % CREA apply 1 time daily to affected area 2013 LIDOCAINE (ANORECTAL) 85861902504 No Longer Active Hira muniz APRN Active HYDROCODONE-ACETAMINOPHEN 5-325 MG TABS 2 tablets by m out every 8 hours as needed for pain HYDROCODONE-ACETAMINOPHEN 16741679599 Acti ve Rajni Criagkum SOFTWARE SECURITY ARCHITECT Active HYDROCODONE-ACETAMINOPHEN 10-325 MG TABS 1 by mouth ev chaka 8 hours as needed for pain HYDROCODONE-ACETAMINOPHEN 59538957003 No Longer Active Jillina Frazell SOFTWARE SECURITY ARCHITECT Active LORATADINE 10 MG TABS 1 tablet by mouth daily L ORATADINE 54568392045 No Longer Active Jillina Frazell SOFTWARE SECURITY ARCHITECT Active DIFLUCAN 150 MG TAB 1 qODay x 2 doses FLUCONAZO LE 49456899782 No Longer Active Jillina Frazell SOFTWARE SECURITY ARCHITECT Active CYCLOBENZAPRINE HCL 10 MG TABS 1/2 - 1 tab PO tid PRN back p ain, muscle spasm CYCLOBENZAPRINE HCL 65845761599 No Longer Active Karen herosn Frazell SOFTWARE SECURITY ARCHITECT Active AUGMENTIN 875-125 MG TAB 1 tab by mouth twice daily with food 20 22/05/07 AMOXICILLIN-POT CLAVULANATE 25606223902 No Longer Active Loida Rios MD Active MOBIC 15 MG TABS 1 tab daily MELOXICAM 597464199 14 No Longer Active Abdirahman Rios MD Active PERCOCET 7.5-325 MG TABS 1 PO tid PRN pain OXYCODONE-ACETAMINOPHEN 98763727679 No Longer Active Abdirahman Rios MD Active LIDODERM 5 % PTCH One patch to painful area [place] N. On for 12 hrs, off for 12 hrs. LIDOCAINE 76759395222 No Longer Active Abdirahman Rios MD Active PERCOCET 7.5-325 MG TABS 1 PO q 8 hrs PRN pain OXYCODONE-ACETAMINOPHEN 33498765597 No Longer Active Shola MCGILL Active HYDROCODONE-ACETAMINOPHEN 7.5-325 MG TABS 1 by mouth e very 6 hours as needed for pain HYDROCODONE-ACETAMINOPHEN 75020567738 No Longer Active Good Julian MD Active CLINDAMYCIN HCL 300 MG CAPS 1 po QID x 7 days CLINDAMYCIN HCL 30370440920 No Longer Active Abdirahman Rios MD Activ e BACTRIM DS 800-160 MG TABS 1 po BID x 7 days 5 SULFAMETHOXAZOLE-TRIMETHOPRIM 42335909630 No Longer Active Abdirahman Rios MD Active ENDOCET 10-325 MG TABS 1 q 6 hr prn OXYCODONE-ACETAMINOPHEN 09036049063 No Longer Active Abdirahman Rios MD Active IBUPROFEN 800 MG TABS 1 tid prn IBUPROFEN 610463 83405 No Longer Active Abdirahman Rios MD Active BACTRIM DS 800-160 MG TABS by mouth twice a day 11/05 SULFAMETHOXAZOLE-TRIMETHOPRIM 52091996167 No Longer Active Good Julian MD Active HYDROCODONE-ACETAMINOPHEN 7.5-325 MG TABS 1 four times a day as needed for pain HYDROCODONE-ACETAMINOPHEN 97648861125 No Longer Activ e Good Julian MD Active KEFLEX 500 MG CAP 1 tab po tid CEPHALEXIN 483497 19591 No Longer Active Hira Moser APRN Active IBUPROFEN 800 MG TAB 1 pill three times daily as needed for pain IBUPROFEN 32853140136 No Longer Active Kalpesh Dong MD Active PROMETHAZINE-CODEINE 6.25-10 MG/5ML SYRP 1 tsp every 6 hrs prn c ough PROMETHAZINE-CODEINE 88757359105 No Longer Active Kalpesh Carr Active HYDROCODONE-ACETAMINOPHEN 5-325 MG TABS 1 tab by mouth every 6 hours as needed HYDROCODONE-ACETAMINOPHEN 11976802181 No Longer Activ e Shola MCGILL Active CEPHALEXIN 500 MG CAPS 1 PO bid x 7 days CEPHAL EXIN 84388861783 No Longer Active Shola MCGILL Active BACTRIM DS 800-160 MG TAB 1 tab by mouth twice daily 2 TRIMETHOPRIM-SULFAMETHOXAZOLE 96150479870 No Longer Active Kalpesh Dong MD Active HYDROCODONE-ACETAMINOPHEN 5-325 MG TABS 1 PO tid PRN pain 5 HYDROCODONE-ACETAMINOPHEN 13590630798 No Longer Active Abhinav Galvan MD Active IMPLANON 68 MG IMPL IMPLANTED IN LEFT ARM ETONO GESTREL 68713051295 No Longer Active Hira Moser APRN Active AMOXICILLIN 500 MG TABS 2 tabs PO bid x 10 d AM OXICILLIN 85347296495 No Longer Active Kalpesh Dong MD Active LEVAQUIN 500 MG TABS 1 PO q day x 7 days LEVOFL OXACIN 40904450619 No Longer Active Shola MCGILL Active AMITRIPTYLINE HCL 25 MG TAB 1 tab by mouth daily 60 minutes before bedtime AMITRIPTYLINE HCL 95495723713 No Longer Active Shola MCGILL Active LORTAB 5 5-500 MG TABS 1/2 to 1 tablet by mouth go ry 6 hours as needed for pain HYDROCODONE-ACETAMINOPHEN 55699255454 No Longer Active Shola MCGILL Active CEPHALEXIN 500 MG TABS Take one by mouth four times daily, morning, noon, early evening and bedtime. CEPHALEXIN 94950422609 No Long er Active Hira Moser APRN Active TYLENOL/CODEINE #3 300-30 MG TAB 1-2 po q6hr PRN Pain ACETAMINOPHEN-CODEINE 42591026175 No Longer Active Edilberto Marino DO Active PRISTIQ 50 MG [id number] 1 po qd DESVENLAFAXI NE SUCCINATE 88468599123 No Longer Active Edilberto Marino DO Active PENICILLIN V POTASSIUM 500 MG TAB 1 four times a day 2 PENICILLIN V POTASSIUM 87582001739 No Longer Active Edilberto Marino DO Active DOXYCYCLINE HYCLATE 100 MG CAPS Take one (1) tablet by mouth twice a day DOXYCYCLINE HYCLATE 24067283744 No Longer Active Ronnie Galvan MD Active HYDROCODONE-ACETAMINOPHEN 5-325 MG TABS 1 po q 6hr PRN Pain 2011 HYDROCODONE-ACETAMINOPHEN 89101237927 No Longer Active Rosari joan Perez RN Active BACTRIM DS 800-160 MG TAB 1 tab by mouth twice daily 2 TRIMETHOPRIM-SULFAMETHOXAZOLE 39635671032 No Longer Active Kalpesh Dong MD Active LORTAB 5 5-500 MG TABS 1/2 to 1 tablet by mouth go ry 4 hours as needed for pain HYDROCODONE-ACETAMINOPHEN 31806380969 No Longer Active Kalpesh Dong MD Active GENERESS FE 0.8-25 MG-MCG CHEW Take one by mouth daily NORETHIN-ETH ESTRADIOL-FE 35136747922 No Longer Active Kalpesh Dong MD Active HYDROCODONE-ACETAMINOPHEN 7.5-500 MG TABS 1-2 every 4 hours as needed HYDROCODONE-ACETAMINOPHEN 26138264366 No Longer Activ e Kalpesh Dong MD Active FERROUS SULFATE 325 (65 FE) MG TABS 1 tablet by mouth twice yung y FERROUS SULFATE 44764916644 No Longer Active Kalpesh Dong MD Active IBUPROFEN 600 MG TAB 1 po q6-8hr PRN IBUPROFEN 93549401100 No Longer Active Kalpesh Dong MD Active SPIRONOLACTONE 25 MG TAB 1 tablet by mouth daily 01/22 SPIRONOLACTONE 89397352016 No Longer Active Kalpesh Dong MD Acti ve HYDROCODONE-ACETAMINOPHEN 7.5-325 MG TABS 1 po QID PRN Pain 2011 HYDROCODONE-ACETAMINOPHEN 75506071747 No Longer Active Kalpesh Dong MD Active CLINDAMYCIN HCL 300 MG CAPS 1 po q6hr x 7 days CLINDAMYCIN HCL 06690713772 No Longer Active Edilberto Marino DO Active PREDNISONE 20 MG TAB 2 tabs daily for 4 days, 1 t ab daily for 4 days, 1/2 tab daily for 4 days PREDNISONE 56341535318 No Longer Active Edilberto Marino DO Active PERCOCET 5-325 MG TABS 1 tablet by mouth every 6 hours as ne eded for pain OXYCODONE-ACETAMINOPHEN 29451628892 No Longer Active Abdirahman Rios MD Active VITAMINS TABS Take one by mouth daily MV & MIN W/FE-FA TABS 96661179678 No Longer Active Abdirahman Rios MD Active LUIS 3-0.02 MG TABS 1 tablet by mouth daily as directed DROSPIRENONE-ETHINYL ESTRADIOL 65390715883 No Longer Active Abdirahman Rios MD Active LORATADINE 10 MG TABS 1 tablet by mouth daily L ORATADINE 93024667556 No Longer Active Kalpesh Dong MD Active HYDROCODONE-ACETAMINOPHEN 5-325 MG TABS 1 po q 6hr PRN Pain 2010 HYDROCODONE-ACETAMINOPHEN 97177165572 No Longer Active Edilberto Marino DO Active BACTRIM DS 800-160 MG TAB 1 tab by mouth twice daily 2 TRIMETHOPRIM-SULFAMETHOXAZOLE 13786143332 No Longer Active Abdirahman Rios MD Active 28-0.8 MG TABS Take one by mouth daily 09/20 VIT-FE FUMARATE-FA 47185397873 No Longer Active Abdirahman Rios MD Active CIPRO 500 MG TAB 1 tablet by mouth twice daily CIPROFLOXACIN HCL 94178875862 No Longer Active Abdirahman Rios MD Active BENADRYL 25 MG CAP 1 po q8hr PRN Congestion DIPHENHYDRAMINE HCL 77746616284 No Longer Active Abdirahman Rios MD Active ZOLOFT 50 MG TAB 1 po qd SERTRALINE HCL 366577 27707 No Longer Active Abdirahman Rios MD Active AMOXICILLIN 875 MG TABS 1 tab by mouth twice daily 201 08/09/13 AMOXICILLIN 09837133135 No Longer Active Abdirahman Rios MD Activ e AMOXICILLIN 875 MG TABS 1 tab by mouth twice daily 201 07/19/27 AMOXICILLIN 54914508892 No Longer Active Abdirahman Rios MD Activ e BACTRIM DS 800-160 MG TAB 2 tab by mouth twice daily 2 TRIMETHOPRIM-SULFAMETHOXAZOLE 56617666576 No Longer Active Abdirahman Rios MD Active KEFLEX 500 MG CAP 1 po tid x 10 days CEPHALEXIN 38834337941 No Longer Active Abdirahman Rios MD Active AMOXICILLIN 875 MG TABS 1 tab by mouth twice daily 201 07/18/07 AMOXICILLIN 69223004406 No Longer Active Abdirahman Rios MD Activ e BACTRIM DS 800-160 MG TAB 2 tab by mouth twice daily 2 BACTRIM DS 800-160 MG TAB TRIMETHOPRIM-SULFAMETHOXAZOLE Inactive ZOLOFT 50 MG TAB 1 po qd ZOLOFT 50 MG TAB 3129 41 SERTRALINE HCL Inactive BENADRYL 25 MG CAP 1 po q8hr PRN Congestion BENADRYL 25 MG CAP 3896531 DIPHENHYDRAMINE HCL Inactive 28-0.8 MG TABS Take one by mouth daily 09/20 28-0.8 MG TABS VIT-FE FUMARATE-FA Inactive HYDROCODONE-ACETAMINOPHEN 5-325 MG TABS 1 po q 6hr PRN Pain 2010 HYDROCODONE-ACETAMINOPHEN 5-325 MG TABS 342373 HYDROCODONE-ACETAMINOPHEN Inactive LORATADINE 10 MG TABS 1 tablet by mouth daily LORATADINE 10 MG TABS 566515 LORATADINE Inactive LUIS 3-0.02 MG TABS 1 tablet by mouth daily as directed LUIS 3-0.02 MG TABS DROSPIRENONE-ETHINYL ESTRADIOL Inactive VITAMINS TABS Take one by mouth daily VITAMINS TABS MV & MIN W/FE-FA TABS Inactive PERCOCET 5-325 MG TABS 1 tablet by mouth every 6 hours as ne eded for pain PERCOCET 5-325 MG TABS 9283190 OXYCODONE-ACETAMIN OPHEN Inactive PREDNISONE 20 MG TAB 2 tabs daily for 4 days, 1 t ab daily for 4 days, 1/2 tab daily for 4 days PREDNISONE 20 MG TAB 241264 PREDNISON E Inactive CLINDAMYCIN HCL 300 MG CAPS 1 po q6hr x 7 days CLINDAMYCIN HCL 300 MG CAPS 002122 CLINDAMYCIN HCL Inactive HYDROCODONE-ACETAMINOPHEN 7.5-325 MG TABS 1 po QID PRN Pain 2011 HYDROCODONE-ACETAMINOPHEN 7.5-325 MG TABS 381429 HYDROCODONE-ACETAMINOPHEN Inactive SPIRONOLACTONE 25 MG TAB 1 tablet by mouth daily 01/22 SPIRONOLACTONE 25 MG TAB 076544 SPIRONOLACTONE Inactive IBUPROFEN 600 MG TAB 1 po q6-8hr PRN IBUPROFEN 600 MG TAB 270407 IBUPROFEN Inactive FERROUS SULFATE 325 (65 FE) MG TABS 1 tablet by mouth twice yung y FERROUS SULFATE 325 (65 FE) MG TABS 007251 FERROUS SULF ATE Inactive HYDROCODONE-ACETAMINOPHEN 7.5-500 MG [...] PRN Pain 2011 HYDROCODONE-ACETAMINOPHEN 5-325 MG TABS 471323 HYDROCODONE-ACETAMINOPHEN Inactive DOXYCYCLINE HYCLATE 100 MG CAPS Take one (1) tablet by mouth twice a day DOXYCYCLINE HYCLATE 100 MG CAPS 360423 DOXYCYCLINE HYCLATE Inactive PENICILLIN V POTASSIUM 500 MG TAB 1 four times a day 2 PENICILLIN V POTASSIUM 500 MG TAB 834438 PENICILLIN V POTASSIUM Rosanky ctive PRISTIQ 50 MG [id number] 1 po qd PRISTIQ 50 MG [id number] DESVENLAFAXINE SUCCINATE Inactive TYLENOL/CODEINE #3 300-30 MG TAB 1-2 po q6hr PRN Pain TYLENOL/CODEINE #3 300-30 MG TAB 791324 ACETAMINOPHEN-CODEINE Inact krishna CEPHALEXIN 500 MG TABS Take one by mouth four times daily, morning, noon, early evening and bedtime. CEPHALEXIN 500 MG TABS 104423 CEPHALEXIN Inactive LORTAB 5 5-500 MG TABS 1/2 to 1 tablet by mouth go ry 6 hours as needed for pain LORTAB 5 5-500 MG TABS HYDROCODONE-A CETAMINOPHEN Inactive AMITRIPTYLINE HCL 25 MG TAB 1 tab by mouth daily 60 minutes before bedtime AMITRIPTYLINE HCL 25 MG TAB 275284 AMITRIPTYLINE HCL Inactive AMOXICILLIN 500 MG TABS 2 tabs PO bid x 10 d 7 AMOXICILLIN 500 MG TABS 365524 AMOXICILLIN Inactive IMPLANON 68 MG IMPL IMPLANTED IN LEFT ARM IMPLANON 68 MG IMPL ETONOGESTREL Inactive HYDROCODONE-ACETAMINOPHEN 5-325 MG TABS 1 PO tid PRN pain 5 HYDROCODONE-ACETAMINOPHEN 5-325 MG TABS 814476 HYDROCODONE-ACETAMIN OPHEN Inactive BACTRIM DS 800-160 MG TAB 1 tab by mouth twice daily 2 BACTRIM DS 800-160 MG TAB TRIMETHOPRIM-SULFAMETHOXAZOLE Inac tive CEPHALEXIN 500 MG CAPS 1 PO bid x 7 days CEPHALEXIN 500 MG CAPS 618082 CEPHALEXIN Inactive HYDROCODONE-ACETAMINOPHEN 5-325 MG TABS 1 tab by mouth every 6 hours as needed HYDROCODONE-ACETAMINOPHEN 5-325 MG TABS 603627 HYDROCODONE-ACETAMINOPHEN Inactive PROMETHAZINE-CODEINE 6.25-10 MG/5ML SYRP 1 tsp every 6 hrs prn c ough PROMETHAZINE-CODEINE 6.25-10 MG/5ML SYRP 406724 PROMETH AZINE-CODEINE Inactive IBUPROFEN 800 MG TAB 1 pill three times daily as needed for pain IBUPROFEN 800 MG TAB 687425 IBUPROFEN Inactive KEFLEX 500 MG CAP 1 tab po tid KEFLEX 500 MG CAP 333476 CEPHALEXIN Inactive HYDROCODONE-ACETAMINOPHEN 7.5-325 MG TABS 1 four times a day as needed for pain HYDROCODONE-ACETAMINOPHEN 7.5-325 MG TABS 348814 HYDROCODONE-ACETAMINOPHEN Inactive BACTRIM DS 800-160 MG TABS by mouth twice a day 11/05 BACTRIM DS 800-160 MG TABS SULFAMETHOXAZOLE-TRIMETHOPRIM Inactive IBUPROFEN 800 MG TABS 1 tid prn IBUPROFEN 800 MG TABS 140549 IBUPROFEN Inactive ENDOCET 10-325 MG TABS 1 q 6 hr prn ENDOC ET 10-325 MG TABS 2778612 OXYCODONE-ACETAMINOPHEN Inactive HYDROCODONE-ACETAMINOPHEN 7.5-325 MG TABS 1 by mouth e very 6 hours as needed for pain HYDROCODONE-ACETAMINOPHEN 7.5-325 MG TABS 850443 HYDROCODONE-ACETAMINOPHEN Inactive PERCOCET 7.5-325 MG TABS 1 PO q 8 hrs PRN pain PERCOCET 7.5-325 MG TABS 7624119 OXYCODONE-ACETAMINOPHEN Inactive LIDODERM 5 % PTCH One patch to painful area MN N. On for 12 hrs, off for 12 hrs. LIDODERM 5 % PTCH 0959179 LIDOCAINE Inactiv e PERCOCET 7.5-325 MG TABS 1 PO tid PRN pain PERCOCET 7.5- 325 MG TABS 5904140 OXYCODONE-ACETAMINOPHEN Inactive MOBIC 15 MG TABS 1 tab daily MOBIC 15 MG TABS 15 2695 MELOXICAM Inactive CYCLOBENZAPRINE HCL 10 MG TABS 1/2 - 1 tab PO tid PRN back p ain, muscle spasm CYCLOBENZAPRINE HCL 10 MG TABS 903961 CYCLOBENZA JOSEPH HCL Inactive LORATADINE 10 MG TABS 1 tablet by mouth daily LORATADINE 10 MG TABS 959429 LORATADINE Inactive HYDROCODONE-ACETAMINOPHEN 10-325 MG TABS 1 by mouth ev chaka 8 hours as needed for pain HYDROCODONE-ACETAMINOPHEN 10-325 MG TABS 313435 HYDROCODONE-ACETAMINOPHEN Inactive LC-5 LIDOCAINE 5 % CREA apply 1 time daily to affected area 2013 LC-5 LIDOCAINE 5 % CREA LIDOCAINE (ANORECTAL) In active PERCOCET 5-325 MG TAB 1 every 6 hours as needed PERCOCET 5-325 MG TAB 6352647 OXYCODONE-ACETAMINOPHEN Inactive KEFLEX 500 MG CAP 1 po qid KEFLEX 500 MG CAP 30 9114 CEPHALEXIN Inactive PROAIR HFA 108 (90 BASE) MCG/ACT AERS 2 puff q 4-6 hrs PRN 01/24 PROAIR HFA 108 (90 BASE) MCG/ACT AERS ALBUTEROL SULFATE Inactive AMOXICILLIN 875 MG TABS 1 tab by mouth twice daily 201 07/18/07 AMOXICILLIN 875 MG TABS 710402 AMOXICILLIN Inactive KEFLEX 500 MG CAP 1 po tid x 10 days KEFLEX 500 MG CAP 818102 CEPHALEXIN Inactive AMOXICILLIN 875 MG TABS 1 tab by mouth twice daily 201 07/19/27 AMOXICILLIN 875 MG TABS 089141 AMOXICILLIN Inactive AMOXICILLIN 875 MG TABS 1 tab by mouth twice daily 201 08/09/13 AMOXICILLIN 875 MG TABS 267846 AMOXICILLIN Inactive CIPRO 500 MG TAB 1 tablet by mouth twice daily CIPRO 500 MG TAB 187213 CIPROFLOXACIN HCL Inactive BACTRIM DS 800-160 MG TAB 1 tab by mouth twice daily 2 BACTRIM DS 800-160 MG TAB TRIMETHOPRIM-SULFAMETHOXAZOLE Inac tive LEVAQUIN 500 MG TABS 1 PO q day x 7 days LEVAQUIN 500 MG TABS 662628 LEVOFLOXACIN Inactive CLINDAMYCIN HCL 300 MG CAPS 1 po QID x 7 days CLINDAMYCIN HCL 300 MG CAPS 627387 CLINDAMYCIN HCL Inactive AUGMENTIN 875-125 MG TAB 1 tab by mouth twice daily with food 20 22/05/07 AUGMENTIN 875-125 MG TAB 690270 AMOXICILLIN-POT CLAVULA [place] Inactive DIFLUCAN 150 MG TAB 1 qODay x 2 doses DIFLUCAN 150 MG TAB 818466 FLUCONAZOLE Inactive PREDNISONE 20 MG TAB 2 tabs daily for 3 days, 1 t ab daily for 3 days, 1/2 tab daily for 2 days PREDNISONE 20 MG TAB 860931 PREDNISON E Inactive AUGMENTIN 875-125 MG TAB 1 tab by mouth twice daily with food 20 21/10/13 AUGMENTIN 875-125 MG TAB 254570 AMOXICILLIN-POT CLAVULA [place] Inactive Advance Directives Directive Description Start Date PERMISSION TO SHARE Immunizations Vaccine Administration Date Value Standard Alf cription Seasonal influenza vaccine, injectable, containing preservative, for > 3 years old (Afluria, FluLaval, Fluzone, Fluvirin, Fluarix, Agriflu(>= 18 yo)) Fluzone (>3 yrs.) [[id number]] Influenza, seasonal, inject able Seasonal influenza vaccine, injectable, preservative free, for > 3 years old (Afluria, FluLaval, Fluzone, Fluvirin, Fluarix, Agriflu(>= 18 yo)) Fluzone preservative free (>3 yrs.) [[id number]] Influenza, seasonal, injectable, preservative free Seasonal influenza vaccine, injectable, containing preservative, for > 3 years old (Afluria, FluLaval, Fluzone, Fluvirin, Fluarix, Agriflu(>= 18 yo)) Fluzone (>3 yrs.) [[id number]] Influenza, seasonal, inject able Seasonal influenza vaccine, injectable, containing preservative, for > 3 years old (Afluria, FluLaval, Fluzone, Fluvirin, Fluarix, Agriflu(>= 18 yo)) Fluzone (>3 yrs.) [[id number]] Influenza, seasonal, inject able dT (Diphtheria and [...] pressure, diastolic - 8462-4 79 mm[Hg] BP riberio blood pressure, systolic - 8480-6 124 mm[Hg] [...] Panel - Chemistry sodium, serum 142 mmol/L 208-432 7564/05/12 potassium, serum 4.8 mmol/L 3.5-5.2 chloride, serum [...] Panel - Chemistry cholesterol, serum 165 mg/dL 448-528 7542/05/12 triglyceride, serum, fasting 524 mg/dL 30-200 HDL [...] negative Encounters Code Encounter Date Provider Facility CPT-60140 Level 2 Est. Patient 07:49:32 CDT Kalpesh goins MD [facility] CPT-05950 Level 3 New Patient 15:47:11 WOUND CARE COORDINATOR Bj huber MD [facility] CPT-46210 Level 4 Est. Patient 14:37:38 WOUND CARE COORDINATOR Abdirahman Rios MD [facility] CPT-92946 Level 2 Est. Patient 13:32:17 WOUND CARE COORDINATOR Kalpesh goins MD [facility] CPT-56852 Level 3 Est. Patient 17:32:57 WOUND CARE COORDINATOR Edilberto tiwari DO [facility] CPT-26347 Level 3 Est. Patient 17:22:33 WOUND CARE COORDINATOR Edilberto tiwari [facility] CPT-26324 Level 2 Est. Patient 16:57:09 WOUND CARE COORDINATOR Kalpesh goins MD [facility] CPT-15749 Level 3 Est. Patient 14:03:08 WOUND CARE COORDINATOR Abdirahman Rios MD [facility] CPT-60217 Level 3 Est. Patient 18:12:34 CDT Shola W Cloven [facility] CPT-30924 Level 3 Est. Patient 19:34:46 CDT Shola Wright [facility] CPT-86806 Level 3 Est. Patient 14:19:37 CDT Abdirahman Rios MD [facility] CPT-80348 Level 3 Est. Patient 14:11:58 CDT Kalpesh goins MD [facility]-20573 Level 3 Est. Patient 16:50:00 CDT Michelle trimble [employer] [facility] Level 3 Est. Patient 17:11:32 WOUND CARE COORDINATOR Brandie bates MD PhD [facility]-40636 Level 3 Est. Patient 16:31:47 WOUND CARE COORDINATOR Shola Wright [facility] CPT-78020 Level 3 Est. Patient 17:51:10 WOUND CARE COORDINATOR Abhinav Galvan MD [facility] CPT-71627 Level 4 Est. Patient 12:54:56 WOUND CARE COORDINATOR Kalpesh goins MD [facility] CPT-73655 Level 4 Est. Patient 12:53:56 WOUND CARE COORDINATOR Kalpesh goins MD [facility]-78336 Level 3 Est. Patient 17:56:58 CDT Shola Wright [facility] CPT-75008 Level 3 Est. Patient 14:26:20 CDT Janak butcher [facility] CPT-94607 Level 3 Est. Patient 09:38:41 CDT Shola Wirght [facility] CPT-24845 Level 3 Est. Patient 14:45:26 CDT Edilberto tiwari DO [facility]-92525 Level 3 Est. Patient 10:51:33 CD[facility] Est[facility] Patient 11:57:55 WOUND CARE COORDINATOR Shola MCGILL [facility] CPT-27786 Level 3 Est. Patient 09:53:33 WOUND CARE COORDINATOR Edilberto tiwari [facility] CPT-84518 Level 3 Est. Patient 14:42:54 WOUND CARE COORDINATOR Abhinav Galvan MD [facility] CPT-38209 Level 3 Est. Patient 15:10:02 CDT Janak butcher [facility] CPT-23377 Level 3 Est. Patient 15:20:20 CDT Theo dennis MD [facility] CPT-95171 Level 2 Est. Patient 14:08:57 CDT Kalpesh goins MD [facility] CPT-79562 Level 3 Est. Patient 13:56:19 CDT Abdirahman Rios MD [facility] CPT-46221 Level 3 Est. Patient 13:59:37 CDT Abdirahman Rios MD [facility] CPT-13219 Level 2 Est. Patient 14:44:59 CDT Kalpesh goins MD [facility] CPT-44450 Level 3 Est. Patient 06:06:23 CDT Edilberto tiwari [facility] CPT-69044 Level 3 Est. Patient 15:23:54 CDT Abdirahman Rios MD [facility] CPT-47310 Level 3 Est. Patient 15:43:49 CDT Abdirahman Rios MD [facility] CPT-91700 Level 3 Est. Patient 12:46:47 WOUND CARE COORDINATOR Abdirahman Rios MD [facility] CPT-42861 Level 3 Est. Patient 08:13:35 WOUND CARE COORDINATOR Abdirahman Rios MD [facility] CPT-10740 Level 2 Est. Patient 09:36:42 WOUND CARE COORDINATOR Abdirahman Rios MD [facility] CPT-77534 Level 3 Est. Patient 10:56:43 CDT Abdirahman Rios MD [facility] CPT-08433 Level 3 Est. Patient 18:24:52 CDT Abdirahman Rios MD [facility] CPT-91122 Level 3 Est. Patient 13:27:22 CDT Abdirahman Rios MD [facility] Procedures Code Procedure Name Date Entry Date Standard Desc ription CPT-89923 Postop F/U Visit 15:02:46 CDT CPT-72104 Postop F/U Visit 11:29:00 WOUND CARE COORDINATOR CPT-J0696 Rocephin 1000 mg (Ceftriaxone) 17:22:33 WOUND CARE COORDINATOR CPT-08587 Postop F/U Visit 18:41:07 WOUND CARE COORDINATOR CPT-69982 Postop F/U Visit 08:19:08 WOUND CARE COORDINATOR CPT-01263 Immunization Single Admin 16:41:53 CDT 2013 CPT-81033 Fluzone Quadrivalent Intramuscular Suspe nsion 0.5 ML 16:41:53 CDT CPT-OV Office Visit 16:39:18 CDT CPT-OV Office Visit 16:16:36 CDT CPT-OV Office Visit 15:34:48 CDT CPT-92087 Postop F/U Visit 14:50:12 CDT CPT-47710 Postop F/U Visit 14:41:10 CDT CPT-81779 Venipuncture Draw Fee 11:38:04 WOUND CARE COORDINATOR CPT-69825 Postop F/U Visit 19:02:59 WOUND CARE COORDINATOR CPT-96894 Postop F/U Visit 12:04:54 WOUND CARE COORDINATOR CPT-53139 Administration single or combination vac cine inc oral 15:56:43 CDT CPT-99865 Influenza split virus > age 3 15:56:43 CDT CPT-38838 Hand comp min 3V 14:25:19 CDT CPT-11194 Postop F/U Visit 21:40:51 CDT CPT-47799 Postop F/U Visit 10:58:43 CDT CPT-82215 Administration single or combination vac cine inc oral 12:33:54 WOUND CARE COORDINATOR CPT-80808 Influenza Preservative Free split virus >age 3 12:33:54 WOUND CARE COORDINATOR CPT-92466 Administration single or combination vac cine inc oral 09:30:51 CDT CPT-68577 Influenza split virus > age 3 09:30:51 CDT CPT-39340 Postop F/U Visit 15:14:53 CDT CPT-57000 Postop F/U Visit 13:50:14 CDT CPT-22255 Postop F/U Visit 13:34:52 CDT CPT-OV Office Visit 16:55:03 CDT CPT-78102 [place] of cervix w bx ECC 13:32:50 CDT 10/19 CPT-J1885 Toradol 60 mg (Ketorolac) 15:31:59 CDT 2011 CPT-J1885 Toradol 60 mg (Ketorolac) 15:23:54 CDT 2011 CPT-82253 Visit 11:34:37 WOUND CARE COORDINATOR CPT-00074 Visit 10:52:39 WOUND CARE COORDINATOR CPT-56081 Visit 10:12:02 WOUND CARE COORDINATOR CPT-80991 Visit 11:22:43 WOUND CARE COORDINATOR CPT-29372 Visit 11:24:12 WOUND CARE COORDINATOR CPT-04670 Visit 10:47:05 WOUND CARE COORDINATOR CPT-OV Office Visit 10:26:16 WOUND CARE COORDINATOR CPT-OV Office Visit 15:34:31 WOUND CARE COORDINATOR CPT-57021 Visit 10:42:08 WOUND CARE COORDINATOR CPT-85711 Visit 10:52:45 WOUND CARE COORDINATOR CPT-000 Give Appropriate Flu Vaccine 16:56:41 CDT 2 CPT-55945 Administration single or combination vac cine inc oral 10:33:21 CDT CPT-71315 Influenza split virus > age 3 10:33:21 CDT CPT-60350 Visit 13:23:09 CDT CPT-79383 Visit 18:24:52 CDT CPT-97106 Sono OB comp > 14 weeks 12:07:49 CDT 04/07
--- OUTSIDE RECORDS SUMMARY | 2020-01-18 16:21 | XMS REPORT | Clinical Summary ---
Author Author Admin, Jeri Rashid Organization [facility] Address Unknown Phone Unavailable Allergies, Adverse [...] sinusitis, unspecified BACK PAIN 724.5 Resolved Abdirahman iRos MD Backache, unspecified , NORMAL V22.2 Resolved Abdirahman Rios MD state, incidental UNSPEC LOCAL INFECTION SKIN&SUBCUTANEOUS TISSUE 686.9 08/09 Resolved Abdirahman Rois MD Unspecified local in fection of skin [...] SURGERY SKIN&SUBCUT TISSUE NEC V58.77 08/27 Active aKlpesh Dong MD Aftercare following surgery of the [...] Julian MD Pilonidal cyst ICD-685.1 Inactive Good aMtos MD Aftercare following surgery of the skin [...] 1 every 4 hours as needed OXYCODONE-ACETAMINOPHEN 01479833156 Active Hira Moser TREASURY REPRESENTATIVE Active PROAIR HFA 108 (90 BASE) MCG/ACT AERS 2 puff q 4-6 hrs PRN 01/24 ALBUTEROL SULFATE 46791481529 No Longer Active Kalpesh Dong MD Active ALPRAZOLAM 0.5 MG TABS 1 po BID PRN Anxiety ALPRA ZOLAM 16712005102 Active Abdirahman Rios MD Active EMLA 2.5-2.5 % EXT CREA apply to skin lesion q 6 hours, prn LIDOCAINE-PRILOCAINE 74691831309 Active Hira Moser APRN Active CYCLOBENZAPRINE HCL 10 MG TABS 1 tablet by mouth three times daily as needed for muscle spasm/pain CYCLOBENZAPRINE HCL 55806884573 Active Abdirahman Rios MD Active PREDNISONE 20 MG TAB 2 tabs daily for 3 days, 1 t ab daily for 3 days, 1/2 tab daily for 2 days PREDNISONE 34322482003 No Longer Active Abdirahman Rios MD Active KEFLEX 500 MG CAP 1 po qid CEPHALEXIN 621147168 20 No Longer Active Kalpesh Dong MD Active PERCOCET 5-325 MG TAB 1 every 6 hours as needed OXYCODONE-ACETAMINOPHEN 34927024856 No Longer Active Shola MCGILL Active LC-5 LIDOCAINE 5 % CREA apply 1 time daily to affected area 2013 LIDOCAINE (ANORECTAL) 64052466276 No Longer Active Hira muniz TREASURY REPRESENTATIVE Active HYDROCODONE-ACETAMINOPHEN 5-325 MG TABS 2 tablets by m outh every 8 hours as needed for pain HYDROCODONE-ACETAMINOPHEN 51564234872 Acti ve Rajni Yokum TREASURY REPRESENTATIVE Active HYDROCODONE-ACETAMINOPHEN 10-325 MG TABS 1 by mouth ev chaka 8 hours as needed for pain HYDROCODONE-ACETAMINOPHEN 00498486973 No Longer Active Matthewllina Shanti TREASURY REPRESENTATIVE Active LORATADINE 10 MG TABS 1 tablet by mouth daily L ORATADINE 48674167707 No Longer Active Matthewllherson Moser TREASURY REPRESENTATIVE Active DIFLUCAN 150 MG TAB 1 qODay x 2 doses FLUCONAZO LE 49483687043 No Longer Active Jillina Karmenl TREASURY REPRESENTATIVE Active CYCLOBENZAPRINE HCL 10 MG TABS 1/2 - 1 tab PO tid PRN back p ain, muscle spasm CYCLOBENZAPRINE HCL 67490942006 No Longer Active Karen herson Frazell TREASURY REPRESENTATIVE Active AUGMENTIN 875-125 MG TAB 1 tab by mouth twice daily with food 20 22/05/07 AMOXICILLIN-POT CLAVULANATE 72377680930 No Longer Active Lioda Rios MD Active MOBIC 15 MG TABS 1 tab daily MELOXICAM 661162672 14 No Longer Active Abdirahman Rios MD Active PERCOCET 7.5-325 MG TABS 1 PO tid PRN pain OXYCODONE-ACETAMINOPHEN 15971596480 No Longer Active Abdirahman Rios MD Active LIDODERM 5 % PTCH One patch to painful area SD N. On for 12 hrs, off for 12 hrs. LIDOCAINE 93769551903 No Longer Active Abdirahman Rios MD Active PERCOCET 7.5-325 MG TABS 1 PO q 8 hrs PRN pain OXYCODONE-ACETAMINOPHEN 60416474329 No Longer Active Shola MCGILL Active HYDROCODONE-ACETAMINOPHEN 7.5-325 MG TABS 1 by mouth e very 6 hours as needed for pain HYDROCODONE-ACETAMINOPHEN 79147876605 No Longer Active Good Julian MD Active CLINDAMYCIN HCL 300 MG CAPS 1 po QID x 7 days CLINDAMYCIN HCL 30265393923 No Longer Active Abdirahman Rios MD Activ e BACTRIM DS 800-160 MG TABS 1 po BID x 7 days 5 SULFAMETHOXAZOLE-TRIMETHOPRIM 93262223003 No Longer Active Abdirahman Rios MD Active ENDOCET 10-325 MG TABS 1 q 6 hr prn OXYCODONE-ACETAMINOPHEN 36002663944 No Longer Active Abdirahman Rios MD Active IBUPROFEN 800 MG TABS 1 tid prn IBUPROFEN 452889 11869 No Longer Active Abdirhaman Rios MD Active BACTRIM DS 800-160 MG TABS by mouth twice a day 11/05 SULFAMETHOXAZOLE-TRIMETHOPRIM 35963249993 No Longer Active Good Julian MD Active HYDROCODONE-ACETAMINOPHEN 7.5-325 MG TABS 1 four times a day as needed for pain HYDROCODONE-ACETAMINOPHEN 58726452045 No Longer Activ e Good Julian MD Active KEFLEX 500 MG CAP 1 tab po tid CEPHALEXIN 032164 48351 No Longer Active Hira Moser APRN Active IBUPROFEN 800 MG TAB 1 pill three times daily as needed for pain IBUPROFEN 09573969822 No Longer Active Kalpesh Dong MD Active PROMETHAZINE-CODEINE 6.25-10 MG/5ML SYRP 1 tsp every 6 hrs prn c ough PROMETHAZINE-CODEINE 29212291565 No Longer Active Kalpesh Carr Active HYDROCODONE-ACETAMINOPHEN 5-325 MG TABS 1 tab by mouth every 6 hours as needed HYDROCODONE-ACETAMINOPHEN 63741402905 No Longer Activ e Shola MCGILL Active CEPHALEXIN 500 MG CAPS 1 PO bid x 7 days CEPHAL EXIN 35168723201 No Longer Active Shola MCGILL Active BACTRIM DS 800-160 MG TAB 1 tab by mouth twice daily 2 TRIMETHOPRIM-SULFAMETHOXAZOLE 78827701839 No Longer Active Kalpesh Dong MD Active HYDROCODONE-ACETAMINOPHEN 5-325 MG TABS 1 PO tid PRN pain 5 HYDROCODONE-ACETAMINOPHEN 67024843205 No Longer Active Abhinav Galvan MD Active IMPLANON 68 MG IMPL IMPLANTED IN LEFT ARM ETONO GESTREL 75459833945 No Longer Active Jillina Frazell TREASURY REPRESENTATIVE Active AMOXICILLIN 500 MG TABS 2 tabs PO bid x 10 d AM OXICILLIN 18971692611 No Longer Active Kalpesh Dong MD Active LEVAQUIN 500 MG TABS 1 PO q day x 7 days LEVOFL OXACIN 14043988345 No Longer Active Shola MCGILL Active FIORICET 50-325-40 MG TABS 2 PO q 8 hrs PRN FOSTER [id number] Active Abdirahman Rios MD Active AMITRIPTYLINE HCL 25 MG TAB 1 tab by mouth daily 60 minutes before bedtime AMITRIPTYLINE HCL 71039996815 No Longer Active Shola MCGILL Active LORTAB 5 5-500 MG TABS 1/2 to 1 tablet by mouth go ry 6 hours as needed for pain HYDROCODONE-ACETAMINOPHEN 50885814440 No Longer Active Shola MCGILL Active CEPHALEXIN 500 MG TABS Take one by mouth four times daily, morning, noon, early evening and bedtime. CEPHALEXIN 83971299846 No Long er Active Jillherson Moser APRN Active TYLENOL/CODEINE #3 300-30 MG TAB 1-2 po q6hr PRN Pain ACETAMINOPHEN-CODEINE 28903880635 No Longer Active Edilberto Marino DO Active PRISTIQ 50 MG [id number] 1 po qd DESVENLAFAXI NE SUCCINATE 72700087379 No Longer Active Edilberto Marino DO Active PENICILLIN V POTASSIUM 500 MG TAB 1 four times a day 2 PENICILLIN V POTASSIUM 83132336586 No Longer Active Edilberto Marino DO Active DOXYCYCLINE HYCLATE 100 MG CAPS Take one (1) tablet by mouth twice a day DOXYCYCLINE HYCLATE 09218892259 No Longer Active Ronnie Galvan MD Active HYDROCODONE-ACETAMINOPHEN 5-325 MG TABS 1 po q 6hr PRN Pain 2011 HYDROCODONE-ACETAMINOPHEN 50824120325 No Longer Active Jerson Perez RN Active BACTRIM DS 800-160 MG TAB 1 tab by mouth twice daily 2 TRIMETHOPRIM-SULFAMETHOXAZOLE 22911698967 No Longer Active Kalpesh Dong MD Active LORTAB 5 5-500 MG TABS 1/2 to 1 tablet by mouth go ry 4 hours as needed for pain HYDROCODONE-ACETAMINOPHEN 83164991491 No Longer Active Kalpesh Dong MD Active GENERESS FE 0.8-25 MG-MCG CHEW Take one by mouth daily NORETHIN-ETH ESTRADIOL-FE 58264559356 No Longer Active Kalpesh Dong MD Active HYDROCODONE-ACETAMINOPHEN 7.5-500 MG TABS 1-2 every 4 hours as needed HYDROCODONE-ACETAMINOPHEN 12918190361 No Longer Activ e Kalpesh Dong MD Active FERROUS SULFATE 325 (65 FE) MG TABS 1 tablet by mouth twice yung y FERROUS SULFATE 35058598551 No Longer Active Kalpesh Dong MD Active IBUPROFEN 600 MG TAB 1 po q6-8hr PRN IBUPROFEN 38968994129 No Longer Active Kalpesh Dong MD Active SPIRONOLACTONE 25 MG TAB 1 tablet by mouth daily 01/22 SPIRONOLACTONE 64207318151 No Longer Active Kalpesh Dong MD Acti ve HYDROCODONE-ACETAMINOPHEN 7.5-325 MG TABS 1 po QID PRN Pain 2011 HYDROCODONE-ACETAMINOPHEN 01572434320 No Longer Active Kalpesh Dong MD Active CLINDAMYCIN HCL 300 MG CAPS 1 po q6hr x 7 days CLINDAMYCIN HCL 19822137105 No Longer Active Edilberto Marino DO Active PREDNISONE 20 MG TAB 2 tabs daily for 4 days, 1 t ab daily for 4 days, 1/2 tab daily for 4 days PREDNISONE 25086661071 No Longer Active Edilberto Marino DO Active PERCOCET 5-325 MG TABS 1 tablet by mouth every 6 hours as ne eded for pain OXYCODONE-ACETAMINOPHEN 79661463982 No Longer Active Abdirahman Rios MD Active VITAMINS TABS Take one by mouth daily MV & MIN W/FE-FA TABS 21110793948 No Longer Active Abdirahman Rios MD Active LUIS 3-0.02 MG TABS 1 tablet by mouth daily as directed DROSPIRENONE-ETHINYL ESTRADIOL 94268006765 No Longer Active Abdirahman Rios MD Active LORATADINE 10 MG TABS 1 tablet by mouth daily L ORATADINE 17489401029 No Longer Active Kalpesh Dong MD Active HYDROCODONE-ACETAMINOPHEN 5-325 MG TABS 1 po q 6hr PRN Pain 2010 HYDROCODONE-ACETAMINOPHEN 98154916730 No Longer Active Edilberto Marino DO Active BACTRIM DS 800-160 MG TAB 1 tab by mouth twice daily 2 TRIMETHOPRIM-SULFAMETHOXAZOLE 29836255337 No Longer Active Abdirahman Rios MD Active 28-0.8 MG TABS Take one by mouth daily 09/20 VIT-FE FUMARATE-FA 43138439496 No Longer Active Abdirahman Rios MD Active CIPRO 500 MG TAB 1 tablet by mouth twice daily CIPROFLOXACIN HCL 38548925774 No Longer Active Abdirahman Rios MD Active BENADRYL 25 MG CAP 1 po q8hr PRN Congestion DIPHENHYDRAMINE HCL 35305544507 No Longer Active Abdirahman Rios MD Active ZOLOFT 50 MG TAB 1 po qd SERTRALINE HCL 634304 80228 No Longer Active Abdirahman Rios MD Active AMOXICILLIN 875 MG TABS 1 tab by mouth twice daily 201 08/09/13 AMOXICILLIN 56129503525 No Longer Active Abdirahman Rios MD Activ e AMOXICILLIN 875 MG TABS 1 tab by mouth twice daily 201 07/19/27 AMOXICILLIN 60456056710 No Longer Active Abdirahman Rios MD Activ e BACTRIM DS 800-160 MG TAB 2 tab by mouth twice daily 2 TRIMETHOPRIM-SULFAMETHOXAZOLE 53737051512 No Longer Active Abdirahman Rios MD Active KEFLEX 500 MG CAP 1 po tid x 10 days CEPHALEXIN 60584556067 No Longer Active Abdirahman Rios MD Active AMOXICILLIN 875 MG TABS 1 tab by mouth twice daily 201 07/18/07 AMOXICILLIN 08676046655 No Longer Active Abdirahman Rios MD Activ e BACTRIM DS 800-160 MG TAB 2 tab by mouth twice daily 2 BACTRIM DS 800-160 MG TAB TRIMETHOPRIM-SULFAMETHOXAZOLE Inactive ZOLOFT 50 MG TAB 1 po qd ZOLOFT 50 MG TAB 3129 41 SERTRALINE HCL Inactive BENADRYL 25 MG CAP 1 po q8hr PRN Congestion BENADRYL 25 MG CAP 8148672 DIPHENHYDRAMINE HCL Inactive 28-0.8 MG TABS Take one by mouth daily 09/20 28-0.8 MG TABS VIT-FE FUMARATE-FA Inactive HYDROCODONE-ACETAMINOPHEN 5-325 MG TABS 1 po q 6hr PRN Pain 2010 HYDROCODONE-ACETAMINOPHEN 5-325 MG TABS 253820 HYDROCODONE-ACETAMINOPHEN Inactive LORATADINE 10 MG TABS 1 tablet by mouth daily LORATADINE 10 MG TABS 283158 LORATADINE Inactive LUIS 3-0.02 MG TABS 1 tablet by mouth daily as directed LUIS 3-0.02 MG TABS DROSPIRENONE-ETHINYL ESTRADIOL Inactive VITAMINS TABS Take one by mouth daily VITAMINS TABS MV & MIN W/FE-FA TABS Inactive PERCOCET 5-325 MG TABS 1 tablet by mouth every 6 hours as ne eded for pain PERCOCET 5-325 MG TABS 2825370 OXYCODONE-ACETAMIN OPHEN Inactive PREDNISONE 20 MG TAB 2 tabs daily for 4 days, 1 t ab daily for 4 days, 1/2 tab daily for 4 days PREDNISONE 20 MG TAB 650460 PREDNISON E Inactive CLINDAMYCIN HCL 300 MG CAPS 1 po q6hr x 7 days CLINDAMYCIN HCL 300 MG CAPS 440547 CLINDAMYCIN HCL Inactive HYDROCODONE-ACETAMINOPHEN 7.5-325 MG TABS 1 po QID PRN Pain 2011 HYDROCODONE-ACETAMINOPHEN 7.5-325 MG TABS 831233 HYDROCODONE-ACETAMINOPHEN Inactive SPIRONOLACTONE 25 MG TAB 1 tablet by mouth daily 01/22 SPIRONOLACTONE 25 MG TAB 155895 SPIRONOLACTONE Inactive IBUPROFEN 600 MG TAB 1 po q6-8hr PRN IBUPROFEN 600 MG TAB 613420 IBUPROFEN Inactive FERROUS SULFATE 325 (65 FE) MG TABS 1 tablet by mouth twice yung y FERROUS SULFATE 325 (65 FE) MG TABS 007646 FERROUS SULF ATE Inactive HYDROCODONE-ACETAMINOPHEN 7.5-500 MG [...] PRN Pain 2011 HYDROCODONE-ACETAMINOPHEN 5-325 MG TABS 453894 HYDROCODONE-ACETAMINOPHEN Inactive DOXYCYCLINE HYCLATE 100 MG CAPS Take one (1) tablet by mouth twice a day DOXYCYCLINE HYCLATE 100 MG CAPS 208102 DOXYCYCLINE HYCLATE Inactive PENICILLIN V POTASSIUM 500 MG TAB 1 four times a day 2 PENICILLIN V POTASSIUM 500 MG TAB 003321 PENICILLIN V POTASSIUM Helen ctive PRISTIQ 50 MG AC12D-PCT 1 po qd PRISTIQ 50 MG SV31C-LWF DESVENLAFAXINE SUCCINATE Inactive TYLENOL/CODEINE #3 300-30 MG TAB 1-2 po q6hr PRN Pain TYLENOL/CODEINE #3 300-30 MG TAB 220597 ACETAMINOPHEN-CODEINE Inact krishna CEPHALEXIN 500 MG TABS Take one by mouth four times daily, morning, noon, early evening and bedtime. CEPHALEXIN 500 MG TABS 288828 CEPHALEXIN Inactive LORTAB 5 5-500 MG TABS 1/2 to 1 tablet by mouth go ry 6 hours as needed for pain LORTAB 5 5-500 MG TABS HYDROCODONE-A CETAMINOPHEN Inactive AMITRIPTYLINE HCL 25 MG TAB 1 tab by mouth daily 60 minutes before bedtime AMITRIPTYLINE HCL 25 MG TAB 159197 AMITRIPTYLINE HCL Inactive AMOXICILLIN 500 MG TABS 2 tabs PO bid x 10 d 7 AMOXICILLIN 500 MG TABS 435083 AMOXICILLIN Inactive IMPLANON 68 MG IMPL IMPLANTED IN LEFT ARM IMPLANON 68 MG IMPL ETONOGESTREL Inactive HYDROCODONE-ACETAMINOPHEN 5-325 MG TABS 1 PO tid PRN pain 5 HYDROCODONE-ACETAMINOPHEN 5-325 MG TABS 082691 HYDROCODONE-ACETAMIN OPHEN Inactive BACTRIM DS 800-160 MG TAB 1 tab by mouth twice daily 2 BACTRIM DS 800-160 MG TAB TRIMETHOPRIM-SULFAMETHOXAZOLE Inac tive CEPHALEXIN 500 MG CAPS 1 PO bid x 7 days CEPHALEXIN 500 MG CAPS 678335 CEPHALEXIN Inactive HYDROCODONE-ACETAMINOPHEN 5-325 MG TABS 1 tab by mouth every 6 hours as needed HYDROCODONE-ACETAMINOPHEN 5-325 MG TABS 210462 HYDROCODONE-ACETAMINOPHEN Inactive PROMETHAZINE-CODEINE 6.25-10 MG/5ML SYRP 1 tsp every 6 hrs prn c ough PROMETHAZINE-CODEINE 6.25-10 MG/5ML SYRP 146071 PROMETH AZINE-CODEINE Inactive IBUPROFEN 800 MG TAB 1 pill three times daily as needed for pain IBUPROFEN 800 MG TAB 342401 IBUPROFEN Inactive KEFLEX 500 MG CAP 1 tab po tid KEFLEX 500 MG CAP 127229 CEPHALEXIN Inactive HYDROCODONE-ACETAMINOPHEN 7.5-325 MG TABS 1 four times a day as needed for pain HYDROCODONE-ACETAMINOPHEN 7.5-325 MG TABS 194330 HYDROCODONE-ACETAMINOPHEN Inactive BACTRIM DS 800-160 MG TABS by mouth twice a day 11/05 BACTRIM DS 800-160 MG TABS SULFAMETHOXAZOLE-TRIMETHOPRIM Inactive IBUPROFEN 800 MG TABS 1 tid prn IBUPROFEN 800 MG TABS 942296 IBUPROFEN Inactive ENDOCET 10-325 MG TABS 1 q 6 hr prn ENDOC ET 10-325 MG TABS 6442382 OXYCODONE-ACETAMINOPHEN Inactive HYDROCODONE-ACETAMINOPHEN 7.5-325 MG TABS 1 by mouth e very 6 hours as needed for pain HYDROCODONE-ACETAMINOPHEN 7.5-325 MG TABS 683514 HYDROCODONE-ACETAMINOPHEN Inactive PERCOCET 7.5-325 MG TABS 1 PO q 8 hrs PRN pain PERCOCET 7.5-325 MG TABS 3782863 OXYCODONE-ACETAMINOPHEN Inactive LIDODERM 5 % PTCH One patch to painful area SD N. On for 12 hrs, off for 12 hrs. LIDODERM 5 % PTCH 0207490 LIDOCAINE Inactiv e PERCOCET 7.5-325 MG TABS 1 PO tid PRN pain PERCOCET 7.5- 325 MG TABS 8109129 OXYCODONE-ACETAMINOPHEN Inactive MOBIC 15 MG TABS 1 tab daily MOBIC 15 MG TABS 15 2695 MELOXICAM Inactive CYCLOBENZAPRINE HCL 10 MG TABS 1/2 - 1 tab PO tid PRN back p ain, muscle spasm CYCLOBENZAPRINE HCL 10 MG TABS 626606 CYCLOBENZA JOSEPH HCL Inactive LORATADINE 10 MG TABS 1 tablet by mouth daily LORATADINE 10 MG TABS 652868 LORATADINE Inactive HYDROCODONE-ACETAMINOPHEN 10-325 MG TABS 1 by mouth ev chaka 8 hours as needed for pain HYDROCODONE-ACETAMINOPHEN 10-325 MG TABS 017849 HYDROCODONE-ACETAMINOPHEN Inactive LC-5 LIDOCAINE 5 % CREA apply 1 time daily to affected area 2013 LC-5 LIDOCAINE 5 % CREA LIDOCAINE (ANORECTAL) In active PERCOCET 5-325 MG TAB 1 every 6 hours as needed PERCOCET 5-325 MG TAB 8652840 OXYCODONE-ACETAMINOPHEN Inactive KEFLEX 500 MG CAP 1 po qid KEFLEX 500 MG CAP 30 9114 CEPHALEXIN Inactive PROAIR HFA 108 (90 BASE) MCG/ACT AERS 2 puff q 4-6 hrs PRN 01/24 PROAIR HFA 108 (90 BASE) MCG/ACT AERS ALBUTEROL SULFATE Inactive AMOXICILLIN 875 MG TABS 1 tab by mouth twice daily 201 07/18/07 AMOXICILLIN 875 MG TABS 764459 AMOXICILLIN Inactive KEFLEX 500 MG CAP 1 po tid x 10 days KEFLEX 500 MG CAP 256812 CEPHALEXIN Inactive AMOXICILLIN 875 MG TABS 1 tab by mouth twice daily 201 07/19/27 AMOXICILLIN 875 MG TABS 313793 AMOXICILLIN Inactive AMOXICILLIN 875 MG TABS 1 tab by mouth twice daily 201 08/09/13 AMOXICILLIN 875 MG TABS 939638 AMOXICILLIN Inactive CIPRO 500 MG TAB 1 tablet by mouth twice daily CIPRO 500 MG TAB 924724 CIPROFLOXACIN HCL Inactive BACTRIM DS 800-160 MG TAB 1 tab by mouth twice daily 2 BACTRIM DS 800-160 MG TAB TRIMETHOPRIM-SULFAMETHOXAZOLE Inac tive LEVAQUIN 500 MG TABS 1 PO q day x 7 days LEVAQUIN 500 MG TABS 805511 LEVOFLOXACIN Inactive CLINDAMYCIN HCL 300 MG CAPS 1 po QID x 7 days CLINDAMYCIN HCL 300 MG CAPS 027384 CLINDAMYCIN HCL Inactive AUGMENTIN 875-125 MG TAB 1 tab by mouth twice daily with food 20 22/05/07 AUGMENTIN 875-125 MG TAB 815829 AMOXICILLIN-POT CLAVULA [place] Inactive DIFLUCAN 150 MG TAB 1 qODay x 2 doses DIFLUCAN 150 MG TAB 231594 FLUCONAZOLE Inactive PREDNISONE 20 MG TAB 2 tabs daily for 3 days, 1 t ab daily for 3 days, 1/2 tab daily for 2 days PREDNISONE 20 MG TAB 234656 PREDNISON E Inactive Advance Directives Directive Description Start Date PERMISSION TO SHARE Immunizations Vaccine Administration Date Value Standard Alf cription Seasonal influenza vaccine, injectable, containing preservative, for > 3 years old (Afluria, FluLaval, Fluzone, Fluvirin, Fluarix, Agriflu(>= 18 yo)) Fluzone (>3 yrs.) [[id number]] Influenza, seasonal, inject able Seasonal influenza vaccine, injectable, preservative free, for > 3 years old (Afluria, FluLaval, Fluzone, Fluvirin, Fluarix, Agriflu(>= 18 yo)) Fluzone preservative free (>3 yrs.) [[id number]] Influenza, seasonal, injectable, preservative free Seasonal influenza vaccine, injectable, containing preservative, for > 3 years old (Afluria, FluLaval, Fluzone, Fluvirin, Fluarix, Agriflu(>= 18 yo)) Fluzone (>3 yrs.) [[id number]] Influenza, seasonal, inject able Seasonal influenza vaccine, injectable, containing preservative, for > 3 years old (Afluria, FluLaval, Fluzone, Fluvirin, Fluarix, Agriflu(>= 18 yo)) Fluzone (>3 yrs.) [[id number]] Influenza, seasonal, inject able dT (Diphtheria and [...] negative Encounters Code Encounter Date Provider Facility CPT-39608 Level 2 Est. Patient 07:49:32 CDT Kalpesh goins MD [facility] CPT-35349 Level 3 New Patient 15:47:11 SPINNING BATH PERSON Bj huber MD [facility] CPT-60001 Level 4 Est. Patient 14:37:38 SPINNING BATH PERSON Abdirahman Rios MD [facility] CPT-59352 Level 2 Est. Patient 13:32:17 SPINNING BATH PERSON Kalpesh goins MD [facility] CPT-15743 Level 3 Est. Patient 17:32:57 SPINNING BATH PERSON Edilberto tiwari DO [facility] CPT-61165 Level 3 Est. Patient 17:22:33 SPINNING BATH PERSON Edilberto tiwari DO [facility] CPT-06908 Level 2 Est. Patient 16:57:09 SPINNING BATH PERSON Kalpesh goins MD [facility] CPT-89504 Level 3 Est. Patient 14:03:08 SPINNING BATH PERSON Abdirahman Rios MD [facility] CPT-89281 Level 3 Est. Patient 18:12:34 CDT Shola Wright [facility] CPT-23977 Level 3 Est. Patient 19:34:46 CDT Shola Wright [facility] CPT-64749 Level 3 Est. Patient 14:19:37 CDT Abdirahman Rios MD [facility] CPT-79635 Level 3 Est. Patient 14:11:58 CDT Kalpesh goins MD [facility] CPT-24256 Level 3 Est. [facility] 16:50:00 [facility] Est. Patient 17:11:32 SPINNING BATH PERSON Brandie bates MD, PhD [facility] CPT-75810 Level 3 Est. Patient 16:31:47 SPINNING BATH PERSON Shola Wright [facility] CPT-64672 Level 3 Est. Patient 17:51:10 SPINNING BATH PERSON Abhinav Galvan MD [facility] CPT-23954 Level 4 Est. Patient 12:54:56 SPINNING BATH PERSON Kalpesh goins MD [facility] CPT-68605 Level 4 Est. Patient 12:53:56 SPINNING BATH PERSON Kalpesh goins MD [facility] CPT-15999 Level 3 Est. Patient 17:56:58 CDT Shola Wright [facility] CPT-62960 Level 3 Est. Patient 14:26:20 CDT Janak butcher [facility] CPT-85449 Level 3 Est. Patient 09:38:41 CDT Shola MCGILL [facility] CPT-60754 Level 3 Est. Patient 14:45:26 CDT Edilberto tiwari [facility] CPT-30080 Level 3 Est. Patient 10:51:33 [facility] Est. Patient 11:57:55 SPINNING BATH PERSON Shola MCGILL [facility] CPT-87037 Level 3 Est. Patient 09:53:33 SPINNING BATH PERSON Edilberto tiwari [facility] CPT-22070 Level 3 Est. Patient 14:42:54 SPINNING BATH PERSON Abhinav Galvan MD [facility]-67849 Level 3 Est. Patient 15:10:02 CDT Janak Stevenamira butcher [facility] CPT-20551 Level 3 Est. Patient 15:20:20 CDT Theo dennis MD [facility] CPT-32121 Level 2 Est. Patient 14:08:57 CDT Kalpesh goins MD [facility]-82577 Level 3 Est. Patient 13:56:19 CDT Abdirahman iRos MD [facility] CPT-59098 Level 3 Est. Patient 13:59:37 CDT Abdirahman Rios MD [facility] CPT-03883 Level 2 Est. Patient 14:44:59 CDT Kalpesh goins MD [facility] CPT-43666 Level 3 Est. Patient 06:06:23 CDT Edilberto tiwari [facility] CPT-14064 Level 3 Est. Patient 15:23:54 CDT Abdirahman Rios MD [facility] CPT-27490 Level 3 Est. Patient 15:43:49 CDT Abdirahman Rios MD [facility] CPT-53674 Level 3 Est. Patient 12:46:47 SPINNING BATH PERSON Abdirahman Rios MD [facility] CPT-34941 Level 3 Est. Patient 08:13:35 SPINNING BATH PERSON Abdirahman Rios MD [facility] CPT-56782 Level 2 Est. Patient 09:36:42 SPINNING BATH PERSON Abdirahman Rios MD [facility] CPT-08745 Level 3 Est. Patient 10:56:43 CDT Abdirahman Rios MD [facility] CPT-86769 Level 3 Est. Patient 18:24:52 CDT Abdirahman Rios MD [facility] CPT-78945 Level 3 Est. Patient 13:27:22 CDT Abdirahman Rios MD [facility] Procedures Code Procedure Name Date Entry Date Standard Desc ription CPT-53184 Postop F/U Visit 15:02:46 CDT CPT-02348 Postop F/U Visit 11:29:00 SPINNING BATH PERSON CPT-J0696 Rocephin 1000 mg (Ceftriaxone) 17:22:33 SPINNING BATH PERSON CPT-24283 Postop F/U Visit 18:41:07 SPINNING BATH PERSON CPT-29971 Postop F/U Visit 08:19:08 SPINNING BATH PERSON CPT-94884 Immunization Single Admin 16:41:53 CDT 2013 CPT-19433 Fluzone Quadrivalent Intramuscular Suspe nsion 0.5 ML 16:41:53 CDT CPT-OV Office Visit 16:39:18 CDT CPT-OV Office Visit 16:16:36 CDT CPT-OV Office Visit 15:34:48 CDT CPT-71737 Postop F/U Visit 14:50:12 CDT CPT-87386 Postop F/U Visit 14:41:10 CDT CPT-91619 Venipuncture Draw Fee 11:38:04 SPINNING B[employer] PERSON CPT-39791 Postop F/U Visit 19:02:59 [employer] CPT-77412 Postop F/U Visit 12:04:54 [employer] CPT-14994 Administration single or combination vac cine inc oral 15:56:43 CDT CPT-13617 Influenza split virus > age 3 15:56:43 CDT CPT-44225 Hand comp min 3V 14:25:19 CDT CPT-54495 Postop F/U Visit 21:40:51 CDT CPT-52414 Postop F/U Visit 10:58:43 CDT CPT-75465 Administration single or combination vac cine inc oral 12:33:54 [employer] CPT-41727 Influenza Preservative Free split virus >age 3 12:33:54 [employer] CPT-99190 Administration single or combination vac cine inc oral 09:30:51 CDT CPT-88785 Influenza split virus > age 3 09:30:51 CDT CPT-73060 Postop F/U Visit 15:14:53 CDT CPT-55105 Postop F/U Visit 13:50:14 CDT CPT-52673 Postop F/U Visit 13:34:52 CDT CPT-OV Office Visit 16:55:03 CDT CPT-98252 [place] of cervix w bx ECC 13:32:50 CDT 10/19 CPT-J1885 Toradol 60 mg (Ketorolac) 15:31:59 CDT 2011 CPT-J1885 Toradol 60 mg (Ketorolac) 15:23:54 CDT 2011 CPT-55227 Visit 11:34:37 [employer] CPT-34331 Visit 10:52:39 [employer] CPT-37598 Visit 10:12:02 [employer] CPT-71875 Visit 11:22:43 [employer] CPT-78023 Visit 11:24:12 SPINNING BATH PERSON CPT-81394 Visit 10:47:05 [place] PERSON CPT-OV Office Visit 10:26:16 [employer] PERSON CPT-OV Office Visit 15:34:31 [place] PERSON CPT-82219 Visit 10:42:08 [place] PERSON CPT-15732 Visit 10:52:45 [place] PERSON CPT-000 Give Appropriate Flu Vaccine 16:56:41 CDT 2 CPT-42656 Administration single or combination vac cine inc oral 10:33:21 CDT CPT-21253 Influenza split virus > age 3 10:33:21 CDT CPT-54539 Visit 13:23:09 CDT CPT-74952 Visit 18:24:52 CDT CPT-39417 Sono OB comp > 14 weeks 12:07:49 CDT 04/07
--- OUTSIDE RECORDS SUMMARY | 2020-01-18 16:22 | XMS REPORT | Clinical Summary ---
Author Author Admin, Jeri Rashid Organization [facility] Address Unknown Phone Unavailable Allergies, Adverse [...] Rios MD Hypoglycemia, unspecified Anxiety 300.00 Active oJann Grace RMMichaela Anxiety state, unspecified Swelling of [...] Generic Name NDC Status Provider Patient Instruction [id number] 50-325-40 MG ORAL TABS 1 po TID PRN Headaches [id number] Active Abdirahman owen MD Active CHANTIX STARTING MONTH MARGARITA 0.5 MG X 11 & 1 MG X 42 TAB S 0.5mg daily for 3 days, then 0.5mg BID for 4 days, then 1mg BID VARENICL INE TARTRATE [id number] Active Abdirahman Rios MD Active AMOXICILLIN 500 MG CAPS 2 po BID x 10 days AMOX ICILLIN 79869466389 Active Abdirahman Rios MD Active PROMETHAZINE HCL 25 MG TABS 1 four times a day as needed for nausea/vomiting PROMETHAZINE HCL 84785306620 No Longer Active Abdirahman Rios MD Active LC-4 LIDOCAINE 4 % EXT CREA apply q 6 hours, prn 08/03 LIDOCAINE 47292820868 No Longer Active Kalpesh Dong MD Active PERCOCET 10-325 MG TABS 1 tablet every 8 hours as needed for antonia n OXYCODONE-ACETAMINOPHEN 84231758905 No Longer Active Kalpesh Dong MD Active HYDROCODONE-ACETAMINOPHEN 5-325 MG TABS 1 tab by mouth every 6 hours as needed for pain HYDROCODONE-ACETAMINOPHEN 51537220931 No Longer Active Kalpesh Dong MD Active PERCOCET 10-325 MG ORAL TABS 1 every 4 hous as needed OXYCODONE-ACETAMINOPHEN 75573641370 Active Hira Moser APRN Active GLYDO 2 % EXT GEL apply to painful areas as needed LIDOCAINE HCL 54845478289 Active Kalpesh Dong MD Active LC-4 LIDOCAINE 4 % EXT CREA apply to painful area every 12 h ours or as needed LIDOCAINE 65789955863 Active Kalpesh Dong MD Active AUGMENTIN 875-125 MG TAB 1 tab by mouth twice daily with food 20 23/05/16 AMOXICILLIN-POT CLAVULANATE 90215138111 No Longer Active Lizeth hi [employer]NAGER 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 FLUTICASONE PROPIONATE 96366180044 No Longer Ac tive Rajni [employer]ION [employer]ETY MANAGER Active PERCOCET 10-325 MG ORAL TABS take 1 tab by mouth q 4hours as needed for pain OXYCODONE-ACETAMINOPHEN 86359057723 No Longer Active Rajni [employer] PRE[employer]ION AND SAFETY MANAGER Active PERCOCET 10-325 MG ORAL TABS one every 6 hours prn pain OXYCODONE-ACETAMINOPHEN 29538935932 No Longer Active Rajni [employer]ION [employer] SAFETY MANAGER Active IBUPROFEN 800 MG TABS 1 tab po tid, with food I BUPROFEN 96978339489 Active Hira Moser LOSS PREVENTION AND SAFETY MANAGER Active DICLOFENAC SODIUM 50 MG TBEC 1 tablet by mouth four times da tom PRN Pain DICLOFENAC SODIUM 85756341134 No Longer Active Rajni [employer]ION [employer] S[employer]ETY MANAGER Active VIIBRYD 10 & 20 & 40 MG KIT 1 po qd as directed 07/24 VILAZODONE HCL 21382846364 No Longer Active Rajni [employer]ION [employer]ETY MANAGER Active ONDANSETRON 4 MG TBDP 1 q4h PRN nausea ONDANSET KELBY 19939205804 No Longer Active Rajni [employer] PRE[employer]ION [employer] SAFETY MANAGER Active PERCOCET 10-325 MG TABS 1 tablet every 8 hours as needed for antonia n OXYCODONE-ACETAMINOPHEN 34035152785 No Longer Active Rajni [employer]ION [employer] S[employer]ETY MANAGER Active HYDROCODONE-ACETAMINOPHEN 5-325 MG TABS 1 po TID PRN Pain 9 HYDROCODONE-ACETAMINOPHEN 74199095453 No Longer Active Abdirahman Rios MD Active [id number] 50-325-40 MG ORAL CAPS 1-2 po TID OH N Headache [id number] 10062173248 No Longer Act krishna Kalpesh Dong MD Active ALPRAZOLAM 0.5 MG TABS 1 po BID PRN Anxiety ALP RAZOLAM 11433665823 No Longer Active Kalpesh Dong MD Active TRAZODONE HCL 100 MG TAB 0.5 to 1 po qHS PRN Insomnia TRAZODONE HCL 07591876177 No Longer Active Kalpesh Dong MD Activ e HYDROCODONE-ACETAMINOPHEN 5-325 MG TABS 1 po q6hr PRN Pain 04/09 HYDROCODONE-ACETAMINOPHEN 56160254186 No Longer Active Kalpesh Dong MD Active CYMBALTA 30 MG CPEP 1 cap by mouth daily DULOXE CLEO HCL 60399976877 No Longer Active Abdirahman Rios MD Active IBUPROFEN 600 MG ORAL TABS 1 by mouth twice a day 2014 IBUPROFEN 63674409594 No Longer Active Abdirahman Rios MD Activ e PERCOCET 5-325 MG TAB 1 tab po q 6 hours, prn severe pain 1 OXYCODONE-ACETAMINOPHEN 20727435269 No Longer Active Abdirahman Rios MD Active SPRINTEC 28 0.25-35 MG-MCG TABS 1 pill by mouth daily for bi rth control NORGESTIMATE-ETH ESTRADIOL 29922428385 No Longer Acti ve Hira Moser LOSS PREVENTION AND SAFETY MANAGER Active CYCLOBENZAPRINE HCL 10 MG TABS 1 tablet by mouth three times daily as needed for muscle spasm/pain CYCLOBENZAPRINE HCL 74457230904 No Longer Active Matthewllina Shanti LOSS PREVENTION AND SAFETY MANAGER Active HYDROCODONE-ACETAMINOPHEN 5-325 MG TABS 1 po q6hr PRN Pain 03/09 HYDROCODONE-ACETAMINOPHEN 59143551059 No Longer Active Hira Peraza l LOSS PREVENTION AND SAFETY MANAGER Active AUGMENTIN 500-125 MG ORAL TABS 1 by mouth twice a day AMOXICILLIN-POT CLAVULANATE 84096853308 No Longer Active Hira Perazal LOSS PREVENTION AND SAFETY MANAGER Active DICLOFENAC SODIUM 50 MG TBEC 1 tablet by mouth four times da tom PRN Pain DICLOFENAC SODIUM 33568721437 No Longer Active Karenin a [employer]ION [employer] SAFETY MANAGER Active PROMETHAZINE HCL 25 MG TABS 1 four times a day as needed for nausea/vomiting PROMETHAZINE HCL 69753911737 No Longer Active Abdirahman Rios MD Active HYDROCODONE-ACETAMINOPHEN 5-325 MG TABS 1 tab by mouth every 6 hours as needed PRN Pain HYDROCODONE-ACETAMINOPHEN 62582090210 No Longer Active Abdirahman Rios MD Active GEMFIBROZIL 600 MG TABS 1 po BID GEMFIBROZIL 63862191 005 Active Abdirahman Rios MD Active PERCOCET 5-325 MG ORAL TABS 1 every 6 hours as needed OXYCODONE-ACETAMINOPHEN 43316769435 No Longer Active Abdirahman Rios MD Active PERCOCET 5-325 MG TAB 1 tab po q 6 -8 hours, prn for severe pain OXYCODONE-ACETAMINOPHEN 24661138561 No Longer Active Abdirahman Rios MD Active HYDROCODONE-ACETAMINOPHEN 5-325 MG TABS 1 po q6hr PRN pain 06/30 HYDROCODONE-ACETAMINOPHEN 24236645790 No Longer Active Hira Peraza l LOSS PREVENTION AND SAFETY MANAGER Active GLUCOPHAGE 500 MG ORAL TABS one by mouth 3 times a day METFORMIN HCL 84514188554 No Longer Active Hira Perazal [employer] PREVENTION AND SAFETY MANAGER Ac tive PERCOCET 10-325 MG TABS 1 tab by mouth every 6 hours , use sparingly for severe pain OXYCODONE-ACETAMINOPHEN 91384233520 No Longer A ctive Abdirahman Rios MD Active EMLA 2.5-2.5 % EXT CREA apply to skin lesion q 6 hours, prn 2014 LIDOCAINE-PRILOCAINE 23868425909 No Longer Active Abdirahman Rios MD Active PERCOCET 10-325 MG ORAL TABS 1 every 4 hours as needed OXYCODONE-ACETAMINOPHEN 57898928335 No Longer Active Abdirahman Rios MD Active AUGMENTIN 875-125 MG TAB 1 tab by mouth twice daily with food 20 21/10/13 AMOXICILLIN-POT CLAVULANATE 13497283795 No Longer Active Ursula jasmina Frazell LOSS PREVENTION AND SAFETY MANAGER Active PROAIR HFA 108 (90 BASE) MCG/ACT AERS 2 puff q 4-6 hrs PRN 01/24 ALBUTEROL SULFATE 25449250615 No Longer Active Kalpesh Dong MD Active PREDNISONE 20 MG TAB 2 tabs daily for 3 days, 1 t ab daily for 3 days, 1/2 tab daily for 2 days PREDNISONE 05487517988 No Longer Active Abdirahman Rios MD Active KEFLEX 500 MG CAP 1 po qid CEPHALEXIN 912020414 20 No Longer Active Kalpesh Dong MD Active PERCOCET 5-325 MG TAB 1 every 6 hours as needed OXYCODONE-ACETAMINOPHEN 53126329666 No Longer Active Shola MCGILL Active LC-5 LIDOCAINE 5 % CREA apply 1 time daily to affected area 2013 LIDOCAINE (ANORECTAL) 13486262546 No Longer Active Hira muniz LOSS PREVENTION AND SAFETY MANAGER Active HYDROCODONE-ACETAMINOPHEN 10-325 MG TABS 1 by mouth ev chaka 8 hours as needed for pain HYDROCODONE-ACETAMINOPHEN 51675257366 No Longer Active Jillina Frazell LOSS PREVENTION AND SAFETY MANAGER Active LORATADINE 10 MG TABS 1 tablet by mouth daily L ORATADINE 84767161318 No Longer Active Jillina Frazell LOSS PREVENTION AND SAFETY MANAGER Active DIFLUCAN 150 MG TAB 1 qODay x 2 doses FLUCONAZO LE 12029488032 No Longer Active Jillina Frazell LOSS PREVENTION AND SAFETY MANAGER Active CYCLOBENZAPRINE HCL 10 MG TABS 1/2 - 1 tab PO tid PRN back p ain, muscle spasm CYCLOBENZAPRINE HCL 74578881522 No Longer Active Karen Moser APRN Active AUGMENTIN 875-125 MG TAB 1 tab by mouth twice daily with food 20 22/05/07 AMOXICILLIN-POT CLAVULANATE 48511863575 No Longer Active Loida Rios MD Active MOBIC 15 MG TABS 1 tab daily MELOXICAM 634422775 14 No Longer Active Abdirahman Rios MD Active PERCOCET 7.5-325 MG TABS 1 PO tid PRN pain OXYCODONE-ACETAMINOPHEN 21140371269 No Longer Active Abdirahman Rios MD Active LIDODERM 5 % PTCH One patch to painful area [place]. On for 12 hrs, off for 12 hrs. LIDOCAINE 44607084290 No Longer Active Abdirahman Rios MD Active PERCOCET 7.5-325 MG TABS 1 PO q 8 hrs PRN pain OXYCODONE-ACETAMINOPHEN 47536598439 No Longer Active Shola MCGILL Active HYDROCODONE-ACETAMINOPHEN 7.5-325 MG TABS 1 by mouth e very 6 hours as needed for pain HYDROCODONE-ACETAMINOPHEN 33183986793 No Longer Active Good Julian MD Active CLINDAMYCIN HCL 300 MG CAPS 1 po QID x 7 days CLINDAMYCIN HCL 47267495855 No Longer Active Abdirahman Rios MD Activ e BACTRIM DS 800-160 MG TABS 1 po BID x 7 days 5 SULFAMETHOXAZOLE-TRIMETHOPRIM 49249624184 No Longer Active Abdirahman Rios MD Active ENDOCET 10-325 MG TABS 1 q 6 hr prn OXYCODONE-ACETAMINOPHEN 00934707104 No Longer Active Abdirahman Rios MD Active IBUPROFEN 800 MG TABS 1 tid prn IBUPROFEN 366541 07848 No Longer Active Abdirahman Rios MD Active BACTRIM DS 800-160 MG TABS by mouth twice a day 11/05 SULFAMETHOXAZOLE-TRIMETHOPRIM 64984416132 No Longer Active Good Julian MD Active HYDROCODONE-ACETAMINOPHEN 7.5-325 MG TABS 1 four times a day as needed for pain HYDROCODONE-ACETAMINOPHEN 92220857761 No Longer Activ e Good Julian MD Active KEFLEX 500 MG CAP 1 tab po tid CEPHALEXIN 777602 89481 No Longer Active Hira Moser APRN Active IBUPROFEN 800 MG TAB 1 pill three times daily as needed for pain IBUPROFEN 36939624789 No Longer Active Kalpesh Dong MD Active PROMETHAZINE-CODEINE 6.25-10 MG/5ML SYRP 1 tsp every 6 hrs prn c ough PROMETHAZINE-CODEINE 24103874873 No Longer Active Kalpesh Carr Active HYDROCODONE-ACETAMINOPHEN 5-325 MG TABS 1 tab by mouth every 6 hours as needed HYDROCODONE-ACETAMINOPHEN 33138323640 No Longer Activ e Shola MCGILL Active CEPHALEXIN 500 MG CAPS 1 PO bid x 7 days CEPHAL EXIN 11553293882 No Longer Active Shola MCGILL Active BACTRIM DS 800-160 MG TAB 1 tab by mouth twice daily 2 TRIMETHOPRIM-SULFAMETHOXAZOLE 36957732766 No Longer Active Kalpesh Dong MD Active HYDROCODONE-ACETAMINOPHEN 5-325 MG TABS 1 PO tid PRN pain 5 HYDROCODONE-ACETAMINOPHEN 40887201791 No Longer Active Abhinav Galvan MD Active IMPLANON 68 MG IMPL IMPLANTED IN LEFT ARM ETONO GESTREL 97276948934 No Longer Active Hira Moser APRN Active AMOXICILLIN 500 MG TABS 2 tabs PO bid x 10 d AM OXICILLIN 18311123823 No Longer Active Kalpesh Dong MD Active LEVAQUIN 500 MG TABS 1 PO q day x 7 days LEVOFL OXACIN 74589312531 No Longer Active Shola MCGILL Active AMITRIPTYLINE HCL 25 MG TAB 1 tab by mouth daily 60 minutes before bedtime AMITRIPTYLINE HCL 44775649478 No Longer Active Shola MCGILL Active LORTAB 5 5-500 MG TABS 1/2 to 1 tablet by mouth go ry 6 hours as needed for pain HYDROCODONE-ACETAMINOPHEN 40628395297 No Longer Active Shola MCGILL Active CEPHALEXIN 500 MG TABS Take one by mouth four times daily, morning, noon, early evening and bedtime. CEPHALEXIN 68054179368 No Long er Active Hira Moser APRN Active TYLENOL/CODEINE #3 300-30 MG TAB 1-2 po q6hr PRN Pain ACETAMINOPHEN-CODEINE 51017234947 No Longer Active Edilberto Marino DO Active PRISTIQ 50 MG [id number] 1 po qd DESVENLAFAXI NE SUCCINATE 93040854228 No Longer Active Edilberto Marino DO Active PENICILLIN V POTASSIUM 500 MG TAB 1 four times a day 2 PENICILLIN V POTASSIUM 86253697649 No Longer Active Edilberto Marino DO Active DOXYCYCLINE HYCLATE 100 MG CAPS Take one (1) tablet by mouth twice a day DOXYCYCLINE HYCLATE 24249572371 No Longer Active Ronnie Galvan MD Active HYDROCODONE-ACETAMINOPHEN 5-325 MG TABS 1 po q 6hr PRN Pain 2011 HYDROCODONE-ACETAMINOPHEN 47339495122 No Longer Active Patri joan Perez RN Active BACTRIM DS 800-160 MG TAB 1 tab by mouth twice daily 2 TRIMETHOPRIM-SULFAMETHOXAZOLE 63554555773 No Longer Active Kalpesh Dong MD Active LORTAB 5 5-500 MG TABS 1/2 to 1 tablet by mouth go ry 4 hours as needed for pain HYDROCODONE-ACETAMINOPHEN 56162466502 No Longer Active Kalpesh Dong MD Active GENERESS FE 0.8-25 MG-MCG CHEW Take one by mouth daily NORETHIN-ETH ESTRADIOL-FE 05195021590 No Longer Active Kalpesh Dong MD Active HYDROCODONE-ACETAMINOPHEN 7.5-500 MG TABS 1-2 every 4 hours as needed HYDROCODONE-ACETAMINOPHEN 42412498501 No Longer Activ e Kalpesh Dong MD Active FERROUS SULFATE 325 (65 FE) MG TABS 1 tablet by mouth twice yung y FERROUS SULFATE 30384185732 No Longer Active Kalpesh Dong MD Active IBUPROFEN 600 MG TAB 1 po q6-8hr PRN IBUPROFEN 67098138730 No Longer Active Kalpesh Dong MD Active SPIRONOLACTONE 25 MG TAB 1 tablet by mouth daily 01/22 SPIRONOLACTONE 23590445906 No Longer Active Kalpesh Dong MD Acti ve HYDROCODONE-ACETAMINOPHEN 7.5-325 MG TABS 1 po QID PRN Pain 2011 HYDROCODONE-ACETAMINOPHEN 48800024797 No Longer Active Kalpesh Dong MD Active CLINDAMYCIN HCL 300 MG CAPS 1 po q6hr x 7 days CLINDAMYCIN HCL 85146120362 No Longer Active Edilberto Marino DO Active PREDNISONE 20 MG TAB 2 tabs daily for 4 days, 1 t ab daily for 4 days, 1/2 tab daily for 4 days PREDNISONE 25847221139 No Longer Active Edilberto Marino DO Active PERCOCET 5-325 MG TABS 1 tablet by mouth every 6 hours as ne eded for pain OXYCODONE-ACETAMINOPHEN 71313875666 No Longer Active Abdirahman Rios MD Active VITAMINS TABS Take one by mouth daily MV & MIN W/FE-FA TABS 53180787416 No Longer Active Abdirahman Rios MD Active LUIS 3-0.02 MG TABS 1 tablet by mouth daily as directed DROSPIRENONE-ETHINYL ESTRADIOL 23371550159 No Longer Active Abdirahman Rios MD Active LORATADINE 10 MG TABS 1 tablet by mouth daily L ORATADINE 82990753863 No Longer Active Kalpesh Dong MD Active HYDROCODONE-ACETAMINOPHEN 5-325 MG TABS 1 po q 6hr PRN Pain 2010 HYDROCODONE-ACETAMINOPHEN 52149392954 No Longer Active Edilberto Marino DO Active BACTRIM DS 800-160 MG TAB 1 tab by mouth twice daily 2 TRIMETHOPRIM-SULFAMETHOXAZOLE 61427463096 No Longer Active Abdirahman Rios MD Active 28-0.8 MG TABS Take one by mouth daily 09/20 VIT-FE FUMARATE-FA 09047559037 No Longer Active Abdirahman Rios MD Active CIPRO 500 MG TAB 1 tablet by mouth twice daily CIPROFLOXACIN HCL 23068532188 No Longer Active Abdirahman Rios MD Active BENADRYL 25 MG CAP 1 po q8hr PRN Congestion DIPHENHYDRAMINE HCL 11854972490 No Longer Active Abdirahman Rios MD Active ZOLOFT 50 MG TAB 1 po qd SERTRALINE HCL 992807 52144 No Longer Active Abdirahman Rios MD Active AMOXICILLIN 875 MG TABS 1 tab by mouth twice daily 201 08/09/13 AMOXICILLIN 57304166999 No Longer Active Abdirahman Rios MD Activ e AMOXICILLIN 875 MG TABS 1 tab by mouth twice daily 201 07/19/27 AMOXICILLIN 24381916484 No Longer Active Abdirahman Rios MD Activ e BACTRIM DS 800-160 MG TAB 2 tab by mouth twice daily 2 TRIMETHOPRIM-SULFAMETHOXAZOLE 30328536830 No Longer Active Abdirahman Rios MD Active KEFLEX 500 MG CAP 1 po tid x 10 days CEPHALEXIN 43884649759 No Longer Active Abdirahman Rios MD Active AMOXICILLIN 875 MG TABS 1 tab by mouth twice daily 201 07/18/07 AMOXICILLIN 81545684992 No Longer Active Abdirahman Rios MD Activ e BACTRIM DS 800-160 MG TAB 2 tab by mouth twice daily 2 BACTRIM DS 800-160 MG TAB 228218 TRIMETHOPRIM-SULFAMETHOXAZOLE Inactive ZOLOFT 50 MG TAB 1 po qd ZOLOFT 50 MG TAB 3129 41 SERTRALINE HCL Inactive BENADRYL 25 MG CAP 1 po q8hr PRN Congestion BENADRYL 25 MG CAP 2561719 DIPHENHYDRAMINE HCL Inactive 28-0.8 MG TABS Take one by mouth daily 09/20 28-0.8 MG TABS VIT-FE FUMARATE-FA Inactive HYDROCODONE-ACETAMINOPHEN 5-325 MG TABS 1 po q 6hr PRN Pain 2010 HYDROCODONE-ACETAMINOPHEN 5-325 MG TABS 056463 HYDROCODONE-ACETAMINOPHEN Inactive LORATADINE 10 MG TABS 1 tablet by mouth daily LORATADINE 10 MG TABS 354556 LORATADINE Inactive LUIS 3-0.02 MG TABS 1 tablet by mouth daily as directed LUIS 3-0.02 MG TABS 297333 DROSPIRENONE-ETHINYL ESTRADIOL Inactive VITAMINS TABS Take one by mouth daily VITAMINS TABS MV & MIN W/FE-FA TABS Inactive PERCOCET 5-325 MG TABS 1 tablet by mouth every 6 hours as ne eded for pain PERCOCET 5-325 MG TABS 3312015 OXYCODONE-ACETAMIN OPHEN Inactive PREDNISONE 20 MG TAB 2 tabs daily for 4 days, 1 t ab daily for 4 days, 1/2 tab daily for 4 days PREDNISONE 20 MG TAB 026520 PREDNISON E Inactive CLINDAMYCIN HCL 300 MG CAPS 1 po q6hr x 7 days CLINDAMYCIN HCL 300 MG CAPS 766418 CLINDAMYCIN HCL Inactive HYDROCODONE-ACETAMINOPHEN 7.5-325 MG TABS 1 po QID PRN Pain 2011 HYDROCODONE-ACETAMINOPHEN 7.5-325 MG TABS 776275 HYDROCODONE-ACETAMINOPHEN Inactive SPIRONOLACTONE 25 MG TAB 1 tablet by mouth daily 01/22 SPIRONOLACTONE 25 MG TAB 640834 SPIRONOLACTONE Inactive IBUPROFEN 600 MG TAB 1 po q6-8hr PRN IBUPROFEN 600 MG TAB 067559 IBUPROFEN Inactive FERROUS SULFATE 325 (65 FE) MG TABS 1 tablet by mouth twice yung y FERROUS SULFATE 325 (65 FE) MG TABS 056516 FERROUS SULF ATE Inactive HYDROCODONE-ACETAMINOPHEN 7.5-500 MG TABS 1-2 every 4 hours as needed HYDROCODONE-ACETAMINOPHEN 7.5-500 MG TABS HYDROCODONE-ACETAMINOPHEN Inactive GENERESS FE 0.8-25 MG-MCG CHEW Take one by mouth daily GENERESS FE 0.8-25 MG-MCG CHEW 8321732 NORETHIN-ETH ESTRADIOL-FE Inactive LORTAB 5 5-500 MG TABS 1/2 to 1 tablet by mouth go ry 4 hours as needed for pain LORTAB 5 5-500 MG TABS HYDROCODONE-A CETAMINOPHEN Inactive BACTRIM DS 800-160 MG TAB 1 tab by mouth twice daily 2 BACTRIM DS 800-160 MG TAB [id number] TRIMETHOPRIM-SULFAMETHOXAZOLE Inac tive HYDROCODONE-ACETAMINOPHEN 5-325 MG TABS 1 po q 6hr PRN Pain 2011 HYDROCODONE-ACETAMINOPHEN 5-325 MG TABS 834719 HYDROCODONE-ACETAMINOPHEN Inactive DOXYCYCLINE HYCLATE 100 MG CAPS Take one (1) tablet by mouth twice a day DOXYCYCLINE HYCLATE 100 MG CAPS 4184914 DOXYCYCLINE HYCLATE Inactive PENICILLIN V POTASSIUM 500 MG TAB 1 four times a day 2 PENICILLIN V POTASSIUM 500 MG TAB 552386 PENICILLIN V POTASSIUM Siri ctive PRISTIQ 50 MG [id number] 1 po qd PRISTIQ 50 MG [id number] DESVENLAFAXINE SUCCINATE Inactive TYLENOL/CODEINE #3 300-30 MG TAB 1-2 po q6hr PRN Pain TYLENOL/CODEINE #3 300-30 MG TAB 734588 ACETAMINOPHEN-CODEINE Inact krishna CEPHALEXIN 500 MG TABS Take one by mouth four times daily, morning, noon, early evening and bedtime. CEPHALEXIN 500 MG TABS 841363 CEPHALEXIN Inactive LORTAB 5 5-500 MG TABS 1/2 to 1 tablet by mouth go ry 6 hours as needed for pain LORTAB 5 5-500 MG TABS HYDROCODONE-A CETAMINOPHEN Inactive AMITRIPTYLINE HCL 25 MG TAB 1 tab by mouth daily 60 minutes before bedtime AMITRIPTYLINE HCL 25 MG TAB 972504 AMITRIPTYLINE HCL Inactive AMOXICILLIN 500 MG TABS 2 tabs PO bid x 10 d 7 AMOXICILLIN 500 MG TABS 300709 AMOXICILLIN Inactive IMPLANON 68 MG IMPL IMPLANTED IN LEFT ARM IMPLANON 68 MG IMPL ETONOGESTREL Inactive HYDROCODONE-ACETAMINOPHEN 5-325 MG TABS 1 PO tid PRN pain 5 HYDROCODONE-ACETAMINOPHEN 5-325 MG TABS 754441 HYDROCODONE-ACETAMIN OPHEN Inactive BACTRIM DS 800-160 MG TAB 1 tab by mouth twice daily 2 BACTRIM DS 800-160 MG TAB 449316 TRIMETHOPRIM-SULFAMETHOXAZOLE Inac tive CEPHALEXIN 500 MG CAPS 1 PO bid x 7 days CEPHALEXIN 500 MG CAPS 601093 CEPHALEXIN Inactive HYDROCODONE-ACETAMINOPHEN 5-325 MG TABS 1 tab by mouth every 6 hours as needed HYDROCODONE-ACETAMINOPHEN 5-325 MG TABS 163932 HYDROCODONE-ACETAMINOPHEN Inactive PROMETHAZINE-CODEINE 6.25-10 MG/5ML SYRP 1 tsp every 6 hrs prn c ough PROMETHAZINE-CODEINE 6.25-10 MG/5ML SYRP 965268 PROMETH AZINE-CODEINE Inactive IBUPROFEN 800 MG TAB 1 pill three times daily as needed for pain IBUPROFEN 800 MG TAB IBUPROFEN Inactive KEFLEX 500 MG CAP 1 tab po tid KEFLEX 500 MG CAP 014634 CEPHALEXIN Inactive HYDROCODONE-ACETAMINOPHEN 7.5-325 MG TABS 1 four times a day as needed for pain HYDROCODONE-ACETAMINOPHEN 7.5-325 MG TABS 123072 HYDROCODONE-ACETAMINOPHEN Inactive BACTRIM DS 800-160 MG TABS by mouth twice a day 11/05 BACTRIM DS 800-160 MG TABS 593752 SULFAMETHOXAZOLE-TRIMETHOPRIM Inactive IBUPROFEN 800 MG TABS 1 tid prn IBUPROFEN 800 MG TABS 392956 IBUPROFEN Inactive ENDOCET 10-325 MG TABS 1 q 6 hr prn ENDOC ET 10-325 MG TABS 9922432 OXYCODONE-ACETAMINOPHEN Inactive HYDROCODONE-ACETAMINOPHEN 7.5-325 MG TABS 1 by mouth e very 6 hours as needed for pain HYDROCODONE-ACETAMINOPHEN 7.5-325 MG TABS 044469 HYDROCODONE-ACETAMINOPHEN Inactive PERCOCET 7.5-325 MG TABS 1 PO q 8 hrs PRN pain PERCOCET 7.5-325 MG TABS 2371791 OXYCODONE-ACETAMINOPHEN Inactive LIDODERM 5 % PTCH One patch to painful area [place]. On for 12 hrs, off for 12 hrs. LIDODERM 5 % PTCH 5625702 LIDOCAINE Inactiv e PERCOCET 7.5-325 MG TABS 1 PO tid PRN pain PERCOCET 7.5- 325 MG TABS 1191893 OXYCODONE-ACETAMINOPHEN Inactive MOBIC 15 MG TABS 1 tab daily MOBIC 15 MG TABS 15 2695 MELOXICAM Inactive CYCLOBENZAPRINE HCL 10 MG TABS 1/2 - 1 tab PO tid PRN back p ain, muscle spasm CYCLOBENZAPRINE HCL 10 MG TABS 511738 CYCLOBENZA JOSEPH HCL Inactive LORATADINE 10 MG TABS 1 tablet by mouth daily LORATADINE 10 MG TABS 339029 LORATADINE Inactive HYDROCODONE-ACETAMINOPHEN 10-325 MG TABS 1 by mouth ev chaka 8 hours as needed for pain HYDROCODONE-ACETAMINOPHEN 10-325 MG TABS 598722 HYDROCODONE-ACETAMINOPHEN Inactive LC-5 LIDOCAINE 5 % CREA apply 1 time daily to affected area 2013 LC-5 LIDOCAINE 5 % CREA 9433214 LIDOCAINE (ANORECTAL) In active PERCOCET 5-325 MG TAB 1 every 6 hours as needed PERCOCET 5-325 MG TAB 5915260 OXYCODONE-ACETAMINOPHEN Inactive KEFLEX 500 MG CAP 1 po qid KEFLEX 500 MG CAP 30 9114 CEPHALEXIN Inactive PROAIR HFA 108 (90 BASE) MCG/ACT AERS 2 puff q 4-6 hrs PRN 01/24 PROAIR HFA 108 (90 BASE) MCG/ACT AERS ALBUTEROL SULFATE Inactive PERCOCET 10-325 MG ORAL TABS 1 every 4 hours as needed PERCOCET 10-325 MG ORAL TABS 1804182 OXYCODONE-ACETAMINOPHEN Inactiv e EMLA 2.5-2.5 % EXT CREA apply to skin lesion q 6 hours, prn 2014 EMLA 2.5-2.5 % EXT CREA 744269 LIDOCAINE-PRILOCAINE Siri ctive PERCOCET 10-325 MG TABS 1 tab by mouth every 6 hours , use sparingly for severe pain PERCOCET 10-325 MG TABS 3619840 OXYCODONE-ACETAMINOPHEN Inactive GLUCOPHAGE 500 MG ORAL TABS one by mouth 3 times a day GLUCOPHAGE 500 MG ORAL TABS 896061 METFORMIN HCL Inactive HYDROCODONE-ACETAMINOPHEN 5-325 MG TABS 1 po q6hr PRN pain 06/30 HYDROCODONE-ACETAMINOPHEN 5-325 MG TABS [id number] HYDROCOD ONE-ACETAMINOPHEN Inactive PERCOCET 5-325 MG TAB 1 tab po q 6 -8 hours, prn for severe pain PERCOCET 5-325 MG TAB [id number] OXYCODONE-ACETAMINOPHEN In active PERCOCET 5-325 MG ORAL TABS 1 every 6 hours as needed PERCOCET 5-325 MG ORAL TABS [id number] OXYCODONE-ACETAMINOPHEN Inactive DICLOFENAC SODIUM 50 MG TBEC 1 tablet by mouth four times da tom PRN Pain DICLOFENAC SODIUM 50 MG TBEC [id number] DICLOFENAC S ODIUM Inactive AUGMENTIN 500-125 MG ORAL TABS 1 by mouth twice a day AUGMENTIN 500-125 MG ORAL TABS [id number] AMOXICILLIN-POT CLAVULANATE I nactive HYDROCODONE-ACETAMINOPHEN 5-325 MG TABS 1 po q6hr PRN Pain 03/09 HYDROCODONE-ACETAMINOPHEN 5-325 MG TABS [id number] HYDROCOD ONE-ACETAMINOPHEN Inactive CYCLOBENZAPRINE HCL 10 MG TABS 1 tablet by mouth three times daily as needed for muscle spasm/pain CYCLOBENZAPRINE HCL 10 MG TABS [id number] CYCLOBENZAPRINE HCL Inactive SPRINTEC 28 0.25-35 MG-MCG TABS 1 pill by mouth daily for bi rth control SPRINTEC 28 0.25-35 MG-MCG TABS [id number] NORGESTIMATE-ETH ESTRADIOL Inactive PERCOCET 5-325 MG TAB 1 tab po q 6 hours, prn severe pain PERCOCET 5-325 MG TAB [id number] OXYCODONE-ACETAMINOPHEN Inactive IBUPROFEN 600 MG ORAL TABS 1 by mouth twice a day 2014 IBUPROFEN 600 MG ORAL TABS [id number] IBUPROFEN Inactive CYMBALTA 30 MG CPEP 1 cap by mouth daily CYMBALTA 30 MG CPEP [id number] DULOXETINE HCL Inactive HYDROCODONE-ACETAMINOPHEN 5-325 MG TABS 1 po q6hr PRN Pain 04/09 HYDROCODONE-ACETAMINOPHEN 5-325 MG TABS [id number] HYDROCOD ONE-ACETAMINOPHEN Inactive TRAZODONE HCL 100 MG TAB 0.5 to 1 po qHS PRN Insomnia TRAZODONE HCL 100 MG TAB [id number] TRAZODONE HCL Inactive ALPRAZOLAM 0.5 MG TABS 1 po BID PRN Anxiety ALPRAZOLAM 0.5 MG TABS [id number] ALPRAZOLAM Inactive [id number] 50-325-40 MG ORAL CAPS 1-2 po TID OH N Headache [id number] 50-325-40 MG ORAL CAPS 2 [id number]-IYLASFB-MANLEGLM Inactive HYDROCODONE-ACETAMINOPHEN 5-325 MG TABS 1 po TID PRN Pain 9 HYDROCODONE-ACETAMINOPHEN 5-325 MG TABS 830400 HYDROCODONE-ACETAMIN OPHEN Inactive PERCOCET 10-325 MG TABS 1 tablet every 8 hours as needed for antonia n PERCOCET 10-325 MG TABS [id number] OXYCODONE-ACETAMINOPHEN Inactive ONDANSETRON 4 MG TBDP 1 q4h PRN nausea ON DANSETRON 4 MG TBDP [id number] ONDANSETRON Inactive VIIBRYD 10 & 20 & 40 MG KIT 1 po qd as directed 07/24 VIIBRYD 10 & 20 & 40 MG KIT VILAZODONE HCL Inactive DICLOFENAC SODIUM 50 MG TBEC 1 tablet by mouth four times da tom PRN Pain DICLOFENAC SODIUM 50 MG TBEC 792843 DICLOFENAC S ODIUM Inactive PERCOCET 10-325 MG ORAL TABS one every 6 hours prn pain PERCOCET 10-325 MG ORAL TABS [id number] OXYCODONE-ACETAMINOPHEN Inactiv e PERCOCET 10-325 MG ORAL TABS take 1 tab by mouth q 4hours as needed for pain PERCOCET 10-325 MG ORAL TABS [id number] OXYCODONE-ACETAMINOPHEN Inactive FLONASE ALLERGY RELIEF 50 MCG/ACT NASAL SUSP One spray in each nostril twice a day. FLONASE ALLERGY RELIEF 50 MCG/ACT NASAL S JAIL 695359 FLUTICASONE PROPIONATE Inactive AUGMENTIN 875-125 MG TAB 1 tab by mouth twice daily with food 20 23/05/16 AUGMENTIN 875-125 MG TAB 170997 AMOXICILLIN-POT [place] Inactive HYDROCODONE-ACETAMINOPHEN 5-325 MG TABS 1 tab by mouth every 6 hours as needed for pain HYDROCODONE-ACETAMINOPHEN 5-325 MG TABS 8 41876 HYDROCODONE-ACETAMINOPHEN Inactive PERCOCET 10-325 MG TABS 1 tablet every 8 hours as needed for antonia n PERCOCET 10-325 MG TABS [id number] OXYCODONE-ACETAMINOPHEN Inactive LC-4 LIDOCAINE 4 % EXT CREA apply q 6 hours, prn 08/03 LC-4 LIDOCAINE 4 % EXT CREA [id number] LIDOCAINE Inactive PROMETHAZINE HCL 25 MG TABS 1 four times a day as needed for nausea/vomiting PROMETHAZINE HCL 25 MG TABS 073413 PROMETHAZINE HCL Inactive AMOXICILLIN 875 MG TABS 1 tab by mouth twice daily 201 07/18/07 AMOXICILLIN 875 MG TABS 661003 AMOXICILLIN Inactive KEFLEX 500 MG CAP 1 po tid x 10 days KEFLEX 500 MG CAP 936667 CEPHALEXIN Inactive AMOXICILLIN 875 MG TABS 1 tab by mouth twice daily 201 07/19/27 AMOXICILLIN 875 MG TABS 950974 AMOXICILLIN Inactive AMOXICILLIN 875 MG TABS 1 tab by mouth twice daily 201 08/09/13 AMOXICILLIN 875 MG TABS 601682 AMOXICILLIN Inactive CIPRO 500 MG TAB 1 tablet by mouth twice daily CIPRO 500 MG TAB 994737 CIPROFLOXACIN HCL Inactive BACTRIM DS 800-160 MG TAB 1 tab by mouth twice daily 2 BACTRIM DS 800-160 MG TAB 382042 TRIMETHOPRIM-SULFAMETHOXAZOLE Inac tive LEVAQUIN 500 MG TABS 1 PO q day x 7 days LEVAQUIN 500 MG TABS 701431 LEVOFLOXACIN Inactive CLINDAMYCIN HCL 300 MG CAPS 1 po QID x 7 days CLINDAMYCIN HCL 300 MG CAPS 092163 CLINDAMYCIN HCL Inactive AUGMENTIN 875-125 MG TAB 1 tab by mouth twice daily with food 20 22/05/07 AUGMENTIN 875-125 MG TAB 874855 AMOXICILLIN-POT [place] Inactive DIFLUCAN 150 MG TAB 1 qODay x 2 doses DIFLUCAN 150 MG TAB 049145 FLUCONAZOLE Inactive PREDNISONE 20 MG TAB 2 tabs daily for 3 days, 1 t ab daily for 3 days, 1/2 tab daily for 2 days PREDNISONE 20 MG TAB 813930 PREDNISON E Inactive AUGMENTIN 875-125 MG TAB 1 tab by mouth twice daily with food 20 21/10/13 AUGMENTIN 875-125 MG TAB 292434 AMOXICILLIN-POT [place] Inactive HYDROCODONE-ACETAMINOPHEN 5-325 MG TABS 1 tab by mouth every 6 hours as needed PRN Pain HYDROCODONE-ACETAMINOPHEN 5-325 MG TABS 8 94273 HYDROCODONE-ACETAMINOPHEN Inactive PROMETHAZINE HCL 25 MG TABS 1 four times a day as needed for nausea/vomiting PROMETHAZINE HCL 25 MG TABS 625516 PROMETHAZINE HCL Inactive Advance Directives Directive Description Start Date PERMISSION TO SHARE Immunizations Vaccine Administration Date Value Standard Alf cription Seasonal influenza vaccine, injectable, containing preservative, for > 3 years old (Afluria, FluLaval, Fluzone, Fluvirin, Fluarix, Agriflu(>= 18 yo)) Fluzone (>3 yrs.) [[id number]] Influenza, seasonal, inject able Seasonal influenza vaccine, injectable, preservative free, for > 3 years old (Afluria, FluLaval, Fluzone, Fluvirin, Fluarix, Agriflu(>= 18 yo)) Fluzone preservative free (>3 yrs.) [[id number]] Influenza, seasonal, injectable, preservative free Seasonal influenza vaccine, injectable, containing preservative, for > 3 years old (Afluria, FluLaval, Fluzone, Fluvirin, Fluarix, Agriflu(>= 18 yo)) Fluzone (>3 yrs.) [[id number]] Influenza, seasonal, inject able Seasonal influenza vaccine, injectable, containing preservative, for > 3 years old (Afluria, FluLaval, Fluzone, Fluvirin, Fluarix, Agriflu(>= 18 yo)) Fluzone (>3 yrs.) [[id number]] Influenza, seasonal, inject able dT (Diphtheria and [...] Lab Report: CBC - Hematology mean corpuscular hemoglobin, RBC 30.2 pg 27. 0-31.2 mean corpuscular volume, RBC 88 fL 80-97 hematocrit, blood 44.6 % 36.0-46.0 hemoglobin, blood 15.4 g/dL 12.0-16.0 mean corpuscular hemoglobin concentration, RBC 34.5 G/DL % 31.8-35.4 red blood cell distribution width 13.4 % 11 .6-14.8 platelet count 294 10^3/MM^3 10*3/mm3 642-870 7994/08/27 erythrocyte (RBC) count 5.08 10^6/MM^3 10*6/mm3 4.04-5.4 [...] Panel - Chemistry sodium, serum 142 mmol/L 796-050 0363/05/12 potassium, serum 4.8 mmol/L 3.5-5.2 chloride, serum [...] ... - Chemistry sodium, serum 137 mmol/L 558-035 1056/02/24 carbon dioxide, venous blood 26.3 mmol/L 21.0-32 [...] Panel - Chemistry cholesterol, serum 165 mg/dL 384-483 6106/05/12 triglyceride, serum, fasting 524 mg/dL 30-200 HDL cholesterol, serum 24 mg/dL 32-96 cholesterol, serum 181 mg/dL 727-841 5320/09/01 triglyceride, serum, fasting 341 mg/dL 30-200 HDL [...] Pt is having Pelvic pain - Chemistry protein, total urine random negative mg/dL RBC, urine, dipstick negative Office Visit: Pt is having Pelvic pain - Urinalysis ketones, urine, by test strip negative bilirubin, urine negative glucose, urine, semiquantitative negative urine color yellow appearance, urine clear leukocyte esterase, urine, by dipstick negative nitrite, urine, semiquantitative negative urobilinogen, urine, semiquantitative (dipstick) negative protein, urine, semiquantitative (dipstick) negative pH, urine, semiquantitative 7 specific gravity, urine 1.015 urinalysis, routine Clean Catch culture status No Encounters Code Encounter Date Provider Facility CPT-00057 Level 4 Est. Patient 16:38:26 CAREER DISCOVERY TEACHER Abdirahman Rios MD [facility] CPT-67607 Level 3 Est. Patient 05:31:41 CAREER DISCOVERY TEACHER Kalpesh goins MD [facility] CPT-11021 Level 3 Est. Patient 11:22:02 CAREER DISCOVERY TEACHER Hira muniz [facility] CPT-31071 Level 3 Est. Patient 21:00:18 CAREER DISCOVERY TEACHER Rajni danielson [facility] CPT-17265 Level 3 Est. Patient 14:15:00 CAREER DISCOVERY TEACHER Kalpesh goins MD [facility] CPT-42371 Level 2 Est. Patient 19:57:52 CAREER DISCOVERY TEACHER Rajni danielson [facility] CPT-75586 Level 3 Est. Patient 16:58:40 CAREER DISCOVERY TEACHER Bj funes MD [facility] CPT-97709 Level 3 Est. Patient 08:51:33 CDT Kalpesh goins MD [facility] CPT-18766 Level 4 Est. Patient 14:14:53 CDT Abdirahman Rios MD [facility] CPT-88156 Level 3 Est. Patient 15:47:40 CDT Kalpesh goins MD [facility] CPT-62443 Level 3 Est. Patient 10:57:26 CDT Abdirahman Rios MD [facility]-46020 Level 3 Est. Patient 14:29:53 CDT Abhinav Galvan MD [facility] CPT-08979 Level 2 Est. Patient 16:33:01 CDT Kalpesh goins MD [facility] CPT-19729 Level 4 Est. Patient 16:44:56 CDT Abdirahman Rios MD [facility] CPT-70239 Level 2 Est. Patient 07:49:32 CDT Kalpesh goins MD [facility] CPT-83719 Level 3 New Patient 15:47:11 CAREER DISCOVERY TEACHER Bj huber MD [facility]-58168 Level 4 Est. Patient 14:37:38 CAREER DISCOVERY TEACHER Abdirahman Rios MD [facility] CPT-94016 Level 2 Est. Patient 13:32:17 CAREER DISCOVERY TEACHER Kalpesh goins MD [facility] CPT-38739 Level 3 Est. Patient 17:32:57 CAREER DISCOVERY TEACHER Edilberto tiwari [facility] CPT-77620 Level 3 Est. Patient 17:22:33 CAREER DISCOVERY TEACHER Edilberto tiwari [facility] CPT-61110 Level 2 Est. Patient 16:57:09 CAREER DISCOVERY TEACHER Kalpesh goins MD [facility]-83778 Level 3 Est. Patient 14:03:08 CAREER DISCOVERY TEACHER Abdirahman Rios MD [facility] CPT-52894 Level 3 Est. Patient 18:12:34 CDT Shola Wright [facility]-09053 Level 3 Est. Patient 19:34:46 CDT Shola Wright [facility] CPT-98184 Level 3 Est. Patient 14:19:37 CDT Abdirahman Rios MD [facility] CPT-50948 Level 3 Est. Patient 14:11:58 CDT Kalpesh goins MD [facility]-32659 Level 3 Est. Patient 16:50:00 CDT Michelle BRADFORDP [facility] CPT-07605 Level 3 Est. Patient 17:11:32 CAREER DISCOVERY TEACHER Brandie bates MD PhD [facility]-17563 Level 3 Est. Patient 16:31:47 CAREER DISCOVERY TEACHER Shola Wright [facility] CPT-16073 Level 3 Est. Patient 17:51:10 CAREER DISCOVERY TEACHER Abhinav Galvan MD [facility]-63226 Level 4 Est. Patient 12:54:56 CAREER DISCOVERY TEACHER Kalpesh goins MD [facility]-45443 Level 4 Est. Patient 12:53:56 CAREER DISCOVERY TEACHER Kalpesh goins MD [facility]-09921 Level 3 Est. Patient 17:56:58 CDT Shola Wright [facility] CPT-65215 Level 3 Est. Patient 14:26:20 CDT Janak butcher [facility] CPT-04607 Level 3 Est. Patient 09:38:41 CDT Shola Wright [facility] CPT-42820 Level 3 Est. Patient 14:45:26 CDT Edilberto tiwari [facility] CPT-26063 Level 3 Est. Patient 10:51:33 CDT [facility]-98054 Level 3 Est. Patient 11:57:55 CAREER DISCOVERY TEACHER Shola Wright [facility] CPT-78825 Level 3 Est. Patient 09:53:33 CAREER DISCOVERY TEACHER Edilberto tiwari [facility] CPT-11824 Level 3 Est. Patient 14:42:54 CAREER DISCOVERY TEACHER Abhinav Galvan MD [facility] CPT-78965 Level 3 Est. Patient 15:10:02 CDT Janak Stevenamira [facility] C[facility]-67916 Level 3 Est. Patient 15:20:20 CDT Theo dennis MD [facility] CPT-01263 Level 2 Est. Patient 14:08:57 CDT Kalpesh goins MD [facility] CPT-80583 Level 3 Est. Patient 13:56:19 CDT Abdirahman Rios MD [facility] CPT-83130 Level 3 Est. Patient 13:59:37 CDT Abdirahman Rios MD [facility] CPT-37965 Level 2 Est. Patient 14:44:59 CDT Kalpesh goins MD [facility] CPT-72074 Level 3 Est. Patient 06:06:23 CDT Edilberto tiwari DO [facility] CPT-70092 Level 3 Est. Patient 15:23:54 CDT Abdirahman Rios MD [facility] CPT-79041 Level 3 Est. Patient 15:43:49 CDT Abdirahman Rios MD [facility] CPT-80137 Level 3 Est. Patient 12:46:47 CAREER DISCOVERY TEACHER Abdirahman Rios MD [facility] CPT-61412 Level 3 Est. Patient 08:13:35 CAREER DISCOVERY TEACHER Abdirahman Rios MD [facility] CPT-08573 Level 2 Est. Patient 09:36:42 CAREER DISCOVERY TEACHER Abdirahman Rios MD [facility] CPT-38036 Level 3 Est. Patient 10:56:43 CDT Abdirahman Rios MD [facility] CPT-09926 Level 3 Est. Patient 18:24:52 CDT Abdirahman Rios MD [facility] CPT-12393 Level 3 Est. Patient 13:27:22 CDT Abdirahman Rios MD [facility] Procedures Code Procedure Name Date Entry Date Standard Desc ription CPT-79666 Postop F/U Visit 17:09:41 CAREER DISCOVERY TEACHER CPT-85761 Postop F/U Visit 14:08:43 CAREER DISCOVERY TEACHER CPT-13875 Postop F/U Visit 15:18:16 CAREER DISCOVERY TEACHER CPT-40838 Postop F/U Visit 15:03:49 CAREER DISCOVERY TEACHER CPT-56811 Postop F/U Visit 14:45:23 CAREER DISCOVERY TEACHER CPT-06249 Postop F/U Visit 14:11:03 CAREER DISCOVERY TEACHER CPT-65174 Postop F/U Visit 18:21:21 CAREER DISCOVERY TEACHER CPT-49506 Postop F/U Visit 15:57:12 CAREER DISCOVERY TEACHER CPT-70529 Bladder Instillation 16:58:41 CAREER DISCOVERY TEACHER 6 CPT-68981 Fluzone Quadrivalent Intramuscular Suspe nsion 0.5 ML 15:20:56 CAREER DISCOVERY TEACHER CPT-48477 Immunization Single Admin 15:20:56 CAREER DISCOVERY TEACHER 2014 CPT-65675 Excis pilonidal cyst simple 08:51:34 CDT 20 22/04/20 CPT-64922 Venipuncture Draw Fee 14:27:29 CDT CPT-90503 Postop F/U Visit 15:27:43 CDT CPT-79637 Postop F/U Visit 14:40:59 CDT CPT-69472 Postop F/U Visit 15:02:46 CDT CPT-52038 Postop F/U Visit 11:29:00 CAREER DISCOVERY TEACHER CPT-J0696 Rocephin 1000 mg (Ceftriaxone) 17:22:33 CAREER DISCOVERY TEACHER CPT-02157 Postop F/U Visit 18:41:07 CAREER DISCOVERY TEACHER CPT-03581 Postop F/U Visit 08:19:08 CAREER DISCOVERY TEACHER CPT-40702 Immunization Single Admin 16:41:53 CDT 2013 CPT-23098 Fluzone Quadrivalent Intramuscular Suspe nsion 0.5 ML 16:41:53 CDT CPT-OV Office Visit 16:39:18 CDT CPT-OV Office Visit 16:16:36 CDT CPT-OV Office Visit 15:34:48 CDT CPT-76948 Postop F/U Visit 14:50:12 CDT CPT-38282 Postop F/U Visit 14:41:10 CDT CPT-42291 Venipuncture Draw Fee 11:38:04 C[employer]ER [employer]COVERY TEACHER CPT-12786 Postop F/U Visit 19:02:59 CAREER DISCOVERY TEACHER CPT-05296 Postop F/U Visit 12:04:54 CAREER DISCOVERY TEACHER CPT-04226 Administration single or combination vac cine inc oral 15:56:43 CDT CPT-49642 Influenza split virus > age 3 15:56:43 CDT CPT-00819 Hand comp min 3V 14:25:19 CDT CPT-65495 Postop F/U Visit 21:40:51 CDT CPT-23133 Postop F/U Visit 10:58:43 CDT CPT-42807 Administration single or combination vac cine inc oral 12:33:54 CAREER DISCOVERY TEACHER CPT-19137 Influenza Preservative Free split virus >age 3 12:33:54 CAREER DISCOVERY TEACHER CPT-09913 Administration single or combination vac cine inc oral 09:30:51 CDT CPT-95154 Influenza split virus > age 3 09:30:51 CDT CPT-19320 Postop F/U Visit 15:14:53 CDT CPT-49824 Postop F/U Visit 13:50:14 CDT CPT-92519 Postop F/U Visit 13:34:52 CDT CPT-OV Office Visit 16:55:03 CDT CPT-05927 [place] of cervix w bx ECC 13:32:50 CDT 10/19 CPT-J1885 Toradol 60 mg (Ketorolac) 15:31:59 CDT 2011 CPT-J1885 Toradol 60 mg (Ketorolac) 15:23:54 CDT 2011 CPT-59249 Visit 11:34:37 CAREER DISCOVERY TEACHER CPT-53506 Visit 10:52:39 CAREER DISCOVERY TEACHER CPT-74008 Visit 10:12:02 CAREER DISCOVERY TEACHER CPT-67668 Visit 11:22:43 CAREER DISCOVERY TEACHER CPT-24558 Visit 11:24:12 CAREER DISCOVERY TEACHER CPT-58472 Visit 10:47:05 CAREER DISCOVERY TEACHER CPT-OV Office Visit 10:26:16 CAREER DISCOVERY TEACHER CPT-OV Office Visit 15:34:31 CAREER DISCOVERY TEACHER CPT-36583 Visit 10:42:08 CAREER DISCOVERY TEACHER CPT-01981 Visit 10:52:45 CAREER DISCOVERY TEACHER CPT-000 Give Appropriate Flu Vaccine 16:56:41 CDT 2 CPT-55231 Administration single or combination vac cine inc oral 10:33:21 CDT CPT-00466 Influenza split virus > age 3 10:33:21 CDT CPT-08320 Visit 13:23:09 CDT CPT-26649 Visit 18:24:52 CDT CPT-74264 Sono OB comp > 14 weeks 12:07:49 CDT 04/07
--- OUTSIDE RECORDS SUMMARY | 2020-01-18 16:23 | XMS REPORT | Clinical Summary ---
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 Chronic pain syndrome AFTERCARE FOLLOW SURGERY SKIN&SUBCUT [...] UPPER RESPIRATORY INFECTION (URI) ICD-465.9 In active Godo Julian MD HEADACHE ICD-784.0 Inactive Good collier [...] Generic Name NDC Status Provider Patient Instruction [id number] 50-325-40 MG ORAL TABS 1 po TID PRN Headaches [id number] Active Abdirahman owen MD Active CHANTIX STARTING MONTH MARGARITA 0.5 MG X 11 & 1 MG X 42 TAB S 0.5mg daily for 3 days, then 0.5mg BID for 4 days, then 1mg BID VARENICL INE TARTRATE 64485218165 Active Abdirahman Rios MD Active AMOXICILLIN 500 MG CAPS 2 po BID x 10 days AMOX ICILLIN 54622787455 No Longer Active Abdirahman Rios MD Active PROMETHAZINE HCL 25 MG TABS 1 four times a day as needed for nausea/vomiting PROMETHAZINE HCL 91057400765 No Longer Active Abdirahman Rios MD Active LC-4 LIDOCAINE 4 % EXT CREA apply q 6 hours, prn 08/03 LIDOCAINE 13522425606 No Longer Active Kalpehs Dong MD Active PERCOCET 10-325 MG TABS 1 tablet every 8 hours as needed for antonia n OXYCODONE-ACETAMINOPHEN 71046844153 No Longer Active Kalpesh Dong MD Active HYDROCODONE-ACETAMINOPHEN 5-325 MG TABS 1 tab by mouth every 6 hours as needed for pain HYDROCODONE-ACETAMINOPHEN 86715277167 No Longer Active Kalpesh Dong MD Active PERCOCET 10-325 MG ORAL TABS 1 every 4 hous as needed OXYCODONE-ACETAMINOPHEN 54933551459 Active Hira Moser APRN Active GLYDO 2 % EXT GEL apply to painful areas as needed LIDOCAINE HCL 58702340228 Active Kalpesh Dong MD Active LC-4 LIDOCAINE 4 % EXT CREA apply to painful area every 12 h ours or as needed LIDOCAINE 89992770107 Active Kalpesh Dong MD Active AUGMENTIN 875-125 MG TAB 1 tab by mouth twice daily with food 20 23/05/16 AMOXICILLIN-POT CLAVULANATE 39090872388 No Longer Active Lizeth hi [employer] MAKEUP INSTRUCTOR 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 FLUTICASONE PROPIONATE 16955591547 No Longer Ac tive Rajni [employer] MAKEUP INSTRUCTOR Active PERCOCET 10-325 MG ORAL TABS take 1 tab by mouth q 4hours as needed for pain OXYCODONE-ACETAMINOPHEN 48907793898 No Longer Active Rajni [place] MAKEUP INSTRUCTOR Active PERCOCET 10-325 MG ORAL TABS one every 6 hours prn pain OXYCODONE-ACETAMINOPHEN 46662978642 No Longer Active Rajni [place] MAKEUP INSTRUCTOR Active IBUPROFEN 800 MG TABS 1 tab po tid, with food I BUPROFEN 28565732396 Active Hira Perazal MAKEUP INSTRUCTOR Active DICLOFENAC SODIUM 50 MG TBEC 1 tablet by mouth four times da tom PRN Pain DICLOFENAC SODIUM 76148364880 No Longer Active Rajni [place] MAKEUP INSTRUCTOR Active VIIBRYD 10 & 20 & 40 MG KIT 1 po qd as directed 07/24 VILAZODONE HCL 80002961330 No Longer Active Rajni [place] MAKEUP INSTRUCTOR Active ONDANSETRON 4 MG TBDP 1 q4h PRN nausea ONDANSET KELBY 75351035372 No Longer Active Rajni [place] MAKEUP INSTRUCTOR Active PERCOCET 10-325 MG TABS 1 tablet every 8 hours as needed for antonia n OXYCODONE-ACETAMINOPHEN 31496788438 No Longer Active Rajni [place] MAKEUP INSTRUCTOR Active HYDROCODONE-ACETAMINOPHEN 5-325 MG TABS 1 po TID PRN Pain 9 HYDROCODONE-ACETAMINOPHEN 97628975996 No Longer Active Abdirahman Rios MD Active [id number]-RNYOAOEN 50-325-40 MG ORAL CAPS 1-2 po TID [place] N Headache [id number] 47523520991 No Longer Act krishna Kalpesh Dong MD Active ALPRAZOLAM 0.5 MG TABS 1 po BID PRN Anxiety ALP RAZOLAM 27403693550 No Longer Active Kalpesh Dong MD Active TRAZODONE HCL 100 MG TAB 0.5 to 1 po qHS PRN Insomnia TRAZODONE HCL 65924606972 No Longer Active Kalpesh Dong MD Activ e HYDROCODONE-ACETAMINOPHEN 5-325 MG TABS 1 po q6hr PRN Pain 04/09 HYDROCODONE-ACETAMINOPHEN 73478045508 No Longer Active Kalpesh Dong MD Active CYMBALTA 30 MG CPEP 1 cap by mouth daily DULOXE CLEO HCL 55262171639 No Longer Active Abdirahman Rios MD Active IBUPROFEN 600 MG ORAL TABS 1 by mouth twice a day 2014 IBUPROFEN 35660022186 No Longer Active Abdirahman Rios MD Activ e PERCOCET 5-325 MG TAB 1 tab po q 6 hours, prn severe pain 1 OXYCODONE-ACETAMINOPHEN 59038583209 No Longer Active Abdirahman Rios MD Active SPRINTEC 28 0.25-35 MG-MCG TABS 1 pill by mouth daily for bi rth control NORGESTIMATE-ETH ESTRADIOL 80219219440 No Longer Acti ve Hira Moser MAKEUP INSTRUCTOR Active CYCLOBENZAPRINE HCL 10 MG TABS 1 tablet by mouth three times daily as needed for muscle spasm/pain CYCLOBENZAPRINE HCL 69268492959 No Longer Active Hira Moser MAKEUP INSTRUCTOR Active HYDROCODONE-ACETAMINOPHEN 5-325 MG TABS 1 po q6hr PRN Pain 03/09 HYDROCODONE-ACETAMINOPHEN 27555990510 No Longer Active Hira Peraza l MAKEUP INSTRUCTOR Active AUGMENTIN 500-125 MG ORAL TABS 1 by mouth twice a day AMOXICILLIN-POT CLAVULANATE 21939383383 No Longer Active Hira Perazal MAKEUP INSTRUCTOR Active DICLOFENAC SODIUM 50 MG TBEC 1 tablet by mouth four times da tom PRN Pain DICLOFENAC SODIUM 86677720909 No Longer Active Karenin a Karmenl MAKEUP INSTRUCTOR Active PROMETHAZINE HCL 25 MG TABS 1 four times a day as needed for nausea/vomiting PROMETHAZINE HCL 91987503224 No Longer Active Abdirahman Rios MD Active HYDROCODONE-ACETAMINOPHEN 5-325 MG TABS 1 tab by mouth every 6 hours as needed PRN Pain HYDROCODONE-ACETAMINOPHEN 89086815764 No Longer Active Abdirahman Rios MD Active GEMFIBROZIL 600 MG TABS 1 po BID GEMFIBROZIL 18122795 005 Active Abdirahman Rios MD Active PERCOCET 5-325 MG ORAL TABS 1 every 6 hours as needed OXYCODONE-ACETAMINOPHEN 17804027180 No Longer Active Abdirahman Rios MD Active PERCOCET 5-325 MG TAB 1 tab po q 6 -8 hours, prn for severe pain OXYCODONE-ACETAMINOPHEN 05456182655 No Longer Active Abdirahman Rios MD Active HYDROCODONE-ACETAMINOPHEN 5-325 MG TABS 1 po q6hr PRN pain 06/30 HYDROCODONE-ACETAMINOPHEN 41291267841 No Longer Active Hira Peraza l MAKEUP INSTRUCTOR Active GLUCOPHAGE 500 MG ORAL TABS one by mouth 3 times a day METFORMIN HCL 01865786079 No Longer Active Hira Moser MAKEUP INSTRUCTOR Ac tive PERCOCET 10-325 MG TABS 1 tab by mouth every 6 hours , use sparingly for severe pain OXYCODONE-ACETAMINOPHEN 67838482938 No Longer A ctive Adbirahman Rios MD Active EMLA 2.5-2.5 % EXT CREA apply to skin lesion q 6 hours, prn 2014 LIDOCAINE-PRILOCAINE 03934750601 No Longer Active Abdirahman Rios MD Active PERCOCET 10-325 MG ORAL TABS 1 every 4 hours as needed OXYCODONE-ACETAMINOPHEN 37782450524 No Longer Active Abdirahman Rios MD Active AUGMENTIN 875-125 MG TAB 1 tab by mouth twice daily with food 20 21/10/13 AMOXICILLIN-POT CLAVULANATE 98331180932 No Longer Active Ursula jasmina Frazell MAKEUP INSTRUCTOR Active PROAIR HFA 108 (90 BASE) MCG/ACT AERS 2 puff q 4-6 hrs PRN 01/24 ALBUTEROL SULFATE 82738469679 No Longer Active Kalpesh Dong MD Active PREDNISONE 20 MG TAB 2 tabs daily for 3 days, 1 t ab daily for 3 days, 1/2 tab daily for 2 days PREDNISONE 67989081850 No Longer Active Abdirahman Rios MD Active KEFLEX 500 MG CAP 1 po qid CEPHALEXIN 406200893 20 No Longer Active Kalpesh Dong MD Active PERCOCET 5-325 MG TAB 1 every 6 hours as needed OXYCODONE-ACETAMINOPHEN 55671981581 No Longer Active Shola MCGILL Active LC-5 LIDOCAINE 5 % CREA apply 1 time daily to affected area 2013 LIDOCAINE (ANORECTAL) 93817383285 No Longer Active Hira F radhaell MAKEUP INSTRUCTOR Active HYDROCODONE-ACETAMINOPHEN 10-325 MG TABS 1 by mouth ev chaka 8 hours as needed for pain HYDROCODONE-ACETAMINOPHEN 12244652209 No Longer Active Jillina Frazell MAKEUP INSTRUCTOR Active LORATADINE 10 MG TABS 1 tablet by mouth daily L ORATADINE 01666305441 No Longer Active Jillina Frazell MAKEUP INSTRUCTOR Active DIFLUCAN 150 MG TAB 1 qODay x 2 doses FLUCONAZO LE 56428769186 No Longer Active Jillina Frazell MAKEUP INSTRUCTOR Active CYCLOBENZAPRINE HCL 10 MG TABS 1/2 - 1 tab PO tid PRN back p ain, muscle spasm CYCLOBENZAPRINE HCL 33250023435 No Longer Active Karen Moser APRN Active AUGMENTIN 875-125 MG TAB 1 tab by mouth twice daily with food 20 22/05/07 AMOXICILLIN-POT CLAVULANATE 98724648878 No Longer Active Loida Rios MD Active MOBIC 15 MG TABS 1 tab daily MELOXICAM 072431110 14 No Longer Active Abdirahman Rios MD Active PERCOCET 7.5-325 MG TABS 1 PO tid PRN pain OXYCODONE-ACETAMINOPHEN 49542656327 No Longer Active Abdirahman Rios MD Active LIDODERM 5 % PTCH One patch to painful area [place] N. On for 12 hrs, off for 12 hrs. LIDOCAINE 40943792544 No Longer Active Abdirahman Rios MD Active PERCOCET 7.5-325 MG TABS 1 PO q 8 hrs PRN pain OXYCODONE-ACETAMINOPHEN 25203652486 No Longer Active Shola MCGILL Active HYDROCODONE-ACETAMINOPHEN 7.5-325 MG TABS 1 by mouth e very 6 hours as needed for pain HYDROCODONE-ACETAMINOPHEN 10498630312 No Longer Active oGod Julian MD Active CLINDAMYCIN HCL 300 MG CAPS 1 po QID x 7 days CLINDAMYCIN HCL 78834385192 No Longer Active Abdirahman Rios MD Activ e BACTRIM DS 800-160 MG TABS 1 po BID x 7 days 5 SULFAMETHOXAZOLE-TRIMETHOPRIM 18400608038 No Longer Active Abdirahman Rios MD Active ENDOCET 10-325 MG TABS 1 q 6 hr prn OXYCODONE-ACETAMINOPHEN 37572752710 No Longer Active Abdirahman Rios MD Active IBUPROFEN 800 MG TABS 1 tid prn IBUPROFEN 670933 80126 No Longer Active Abdirahman Rios MD Active BACTRIM DS 800-160 MG TABS by mouth twice a day 11/05 SULFAMETHOXAZOLE-TRIMETHOPRIM 28487405462 No Longer Active Good Julian MD Active HYDROCODONE-ACETAMINOPHEN 7.5-325 MG TABS 1 four times a day as needed for pain HYDROCODONE-ACETAMINOPHEN 11876610683 No Longer Activ e Good Julian MD Active KEFLEX 500 MG CAP 1 tab po tid CEPHALEXIN 311087 39638 No Longer Active Hira Moser APRN Active IBUPROFEN 800 MG TAB 1 pill three times daily as needed for pain IBUPROFEN 21224709448 No Longer Active Kalpesh Dong MD Active PROMETHAZINE-CODEINE 6.25-10 MG/5ML SYRP 1 tsp every 6 hrs prn c ough PROMETHAZINE-CODEINE 55815263952 No Longer Active Kalpesh Carr Active HYDROCODONE-ACETAMINOPHEN 5-325 MG TABS 1 tab by mouth every 6 hours as needed HYDROCODONE-ACETAMINOPHEN 78231482125 No Longer Activ e Shola MCGILL Active CEPHALEXIN 500 MG CAPS 1 PO bid x 7 days CEPHAL EXIN 80641017706 No Longer Active Shola MCGILL Active BACTRIM DS 800-160 MG TAB 1 tab by mouth twice daily 2 TRIMETHOPRIM-SULFAMETHOXAZOLE 69139419420 No Longer Active Kalpesh Dong MD Active HYDROCODONE-ACETAMINOPHEN 5-325 MG TABS 1 PO tid PRN pain 5 HYDROCODONE-ACETAMINOPHEN 38973929225 No Longer Active Abhinav Galvan MD Active IMPLANON 68 MG IMPL IMPLANTED IN LEFT ARM ETONO GESTREL 80081487387 No Longer Active Hira Moser APRN Active AMOXICILLIN 500 MG TABS 2 tabs PO bid x 10 d AM OXICILLIN 44826940267 No Longer Active Kalpesh Dong MD Active LEVAQUIN 500 MG TABS 1 PO q day x 7 days LEVOFL OXACIN 11748852948 No Longer Active Shola MCGILL Active AMITRIPTYLINE HCL 25 MG TAB 1 tab by mouth daily 60 minutes before bedtime AMITRIPTYLINE HCL 47777830318 No Longer Active Shola MCGILL Active LORTAB 5 5-500 MG TABS 1/2 to 1 tablet by mouth go ry 6 hours as needed for pain HYDROCODONE-ACETAMINOPHEN 66082790717 No Longer Active Shola MCGILL Active CEPHALEXIN 500 MG TABS Take one by mouth four times daily, morning, noon, early evening and bedtime. CEPHALEXIN 56759145564 No Long er Active Hira Moser APRN Active TYLENOL/CODEINE #3 300-30 MG TAB 1-2 po q6hr PRN Pain ACETAMINOPHEN-CODEINE 59757702358 No Longer Active Edilberto Marino DO Active PRISTIQ 50 MG [id number] 1 po qd DESVENLAFAXI NE SUCCINATE 80257654428 No Longer Active Edilberto Marino DO Active PENICILLIN V POTASSIUM 500 MG TAB 1 four times a day 2 PENICILLIN V POTASSIUM 02262018381 No Longer Active Edilberto Marino DO Active DOXYCYCLINE HYCLATE 100 MG CAPS Take one (1) tablet by mouth twice a day DOXYCYCLINE HYCLATE 84860995929 No Longer Active Ronnie Galvan MD Active HYDROCODONE-ACETAMINOPHEN 5-325 MG TABS 1 po q 6hr PRN Pain 2011 HYDROCODONE-ACETAMINOPHEN 56925056517 No Longer Active Patri joan Perez RN Active BACTRIM DS 800-160 MG TAB 1 tab by mouth twice daily 2 TRIMETHOPRIM-SULFAMETHOXAZOLE 61671400261 No Longer Active Kalpesh Dong MD Active LORTAB 5 5-500 MG TABS 1/2 to 1 tablet by mouth go ry 4 hours as needed for pain HYDROCODONE-ACETAMINOPHEN 54868526059 No Longer Active Kalpesh Dong MD Active GENERESS FE 0.8-25 MG-MCG CHEW Take one by mouth daily NORETHIN-ETH ESTRADIOL-FE 18247892955 No Longer Active Kalpesh Dong MD Active HYDROCODONE-ACETAMINOPHEN 7.5-500 MG TABS 1-2 every 4 hours as needed HYDROCODONE-ACETAMINOPHEN 96066029074 No Longer Activ e Kalpesh Dong MD Active FERROUS SULFATE 325 (65 FE) MG TABS 1 tablet by mouth twice yung y FERROUS SULFATE 43161912138 No Longer Active Kalpesh Dong MD Active IBUPROFEN 600 MG TAB 1 po q6-8hr PRN IBUPROFEN 41976361345 No Longer Active Kalpesh Dong MD Active SPIRONOLACTONE 25 MG TAB 1 tablet by mouth daily 01/22 SPIRONOLACTONE 56901450405 No Longer Active Kalpesh Dong MD Acti ve HYDROCODONE-ACETAMINOPHEN 7.5-325 MG TABS 1 po QID PRN Pain 2011 HYDROCODONE-ACETAMINOPHEN 02172917528 No Longer Active Kalpesh Dong MD Active CLINDAMYCIN HCL 300 MG CAPS 1 po q6hr x 7 days CLINDAMYCIN HCL 43921386218 No Longer Active Edilberto Marino DO Active PREDNISONE 20 MG TAB 2 tabs daily for 4 days, 1 t ab daily for 4 days, 1/2 tab daily for 4 days PREDNISONE 65462976493 No Longer Active Edilberto Marino DO Active PERCOCET 5-325 MG TABS 1 tablet by mouth every 6 hours as ne eded for pain OXYCODONE-ACETAMINOPHEN 72730526609 No Longer Active Abdirahman Rios MD Active VITAMINS TABS Take one by mouth daily MV & MIN W/FE-FA TABS 10101249257 No Longer Active Abdirahman Rios MD Active LUIS 3-0.02 MG TABS 1 tablet by mouth daily as directed DROSPIRENONE-ETHINYL ESTRADIOL 69394072568 No Longer Active Abdirahman Rios MD Active LORATADINE 10 MG TABS 1 tablet by mouth daily L ORATADINE 25854452621 No Longer Active Kalpesh Dong MD Active HYDROCODONE-ACETAMINOPHEN 5-325 MG TABS 1 po q 6hr PRN Pain 2010 HYDROCODONE-ACETAMINOPHEN 20958830779 No Longer Active Edilberto Marino DO Active BACTRIM DS 800-160 MG TAB 1 tab by mouth twice daily 2 TRIMETHOPRIM-SULFAMETHOXAZOLE 59748155647 No Longer Active Abdirahman Rios MD Active 28-0.8 MG TABS Take one by mouth daily 09/20 VIT-FE FUMARATE-FA 06845859407 No Longer Active Abdirahman Rios MD Active CIPRO 500 MG TAB 1 tablet by mouth twice daily CIPROFLOXACIN HCL 95089004991 No Longer Active Abdirahman Rios MD Active BENADRYL 25 MG CAP 1 po q8hr PRN Congestion DIPHENHYDRAMINE HCL 03086035060 No Longer Active Abdirahman Rios MD Active ZOLOFT 50 MG TAB 1 po qd SERTRALINE HCL 968708 50480 No Longer Active Abdirahman Rios MD Active AMOXICILLIN 875 MG TABS 1 tab by mouth twice daily 201 08/09/13 AMOXICILLIN 93699647657 No Longer Active Abdirahman Rois MD Activ e AMOXICILLIN 875 MG TABS 1 tab by mouth twice daily 201 07/19/27 AMOXICILLIN 64787634882 No Longer Active Abdirahman Rios MD Activ e BACTRIM DS 800-160 MG TAB 2 tab by mouth twice daily 2 TRIMETHOPRIM-SULFAMETHOXAZOLE 63858069597 No Longer Active Abdirahman Rios MD Active KEFLEX 500 MG CAP 1 po tid x 10 days CEPHALEXIN 15421278229 No Longer Active Abdirahman Rios MD Active AMOXICILLIN 875 MG TABS 1 tab by mouth twice daily 201 07/18/07 AMOXICILLIN 00877180226 No Longer Active Abdirahman Rios MD Activ e BACTRIM DS 800-160 MG TAB 2 tab by mouth twice daily 2 BACTRIM DS 800-160 MG TAB 311354 TRIMETHOPRIM-SULFAMETHOXAZOLE Inactive ZOLOFT 50 MG TAB 1 po qd ZOLOFT 50 MG TAB 3129 41 SERTRALINE HCL Inactive BENADRYL 25 MG CAP 1 po q8hr PRN Congestion BENADRYL 25 MG CAP 3443774 DIPHENHYDRAMINE HCL Inactive 28-0.8 MG TABS Take one by mouth daily 09/20 28-0.8 MG TABS VIT-FE FUMARATE-FA Inactive HYDROCODONE-ACETAMINOPHEN 5-325 MG TABS 1 po q 6hr PRN Pain 2010 HYDROCODONE-ACETAMINOPHEN 5-325 MG TABS 298338 HYDROCODONE-ACETAMINOPHEN Inactive LORATADINE 10 MG TABS 1 tablet by mouth daily LORATADINE 10 MG TABS 614510 LORATADINE Inactive LUIS 3-0.02 MG TABS 1 tablet by mouth daily as directed LUIS 3-0.02 MG TABS 434985 DROSPIRENONE-ETHINYL ESTRADIOL Inactive VITAMINS TABS Take one by mouth daily VITAMINS TABS MV & MIN W/FE-FA TABS Inactive PERCOCET 5-325 MG TABS 1 tablet by mouth every 6 hours as ne eded for pain PERCOCET 5-325 MG TABS 4652329 OXYCODONE-ACETAMIN OPHEN Inactive PREDNISONE 20 MG TAB 2 tabs daily for 4 days, 1 t ab daily for 4 days, 1/2 tab daily for 4 days PREDNISONE 20 MG TAB 013144 PREDNISON E Inactive CLINDAMYCIN HCL 300 MG CAPS 1 po q6hr x 7 days CLINDAMYCIN HCL 300 MG CAPS 601104 CLINDAMYCIN HCL Inactive HYDROCODONE-ACETAMINOPHEN 7.5-325 MG TABS 1 po QID PRN Pain 2011 HYDROCODONE-ACETAMINOPHEN 7.5-325 MG TABS 391289 HYDROCODONE-ACETAMINOPHEN Inactive SPIRONOLACTONE 25 MG TAB 1 tablet by mouth daily 01/22 SPIRONOLACTONE 25 MG TAB 470443 SPIRONOLACTONE Inactive IBUPROFEN 600 MG TAB 1 po q6-8hr PRN IBUPROFEN 600 MG TAB 311958 IBUPROFEN Inactive FERROUS SULFATE 325 (65 FE) MG TABS 1 tablet by mouth twice yung y FERROUS SULFATE 325 (65 FE) MG TABS 994067 FERROUS SULF ATE Inactive HYDROCODONE-ACETAMINOPHEN 7.5-500 MG TABS 1-2 every 4 hours as needed HYDROCODONE-ACETAMINOPHEN 7.5-500 MG TABS HYDROCODONE-ACETAMINOPHEN Inactive GENERESS FE 0.8-25 MG-MCG CHEW Take one by mouth daily GENERESS FE 0.8-25 MG-MCG CHEW [id number] NORETHIN-ETH ESTRADIOL-FE Inactive LORTAB 5 5-500 MG TABS 1/2 to 1 tablet by mouth go ry 4 hours as needed for pain LORTAB 5 5-500 MG TABS HYDROCODONE-A CETAMINOPHEN Inactive BACTRIM DS 800-160 MG TAB 1 tab by mouth twice daily 2 BACTRIM DS 800-160 MG TAB 693859 TRIMETHOPRIM-SULFAMETHOXAZOLE Inac tive HYDROCODONE-ACETAMINOPHEN 5-325 MG TABS 1 po q 6hr PRN Pain 2011 HYDROCODONE-ACETAMINOPHEN 5-325 MG TABS 309062 HYDROCODONE-ACETAMINOPHEN Inactive DOXYCYCLINE HYCLATE 100 MG CAPS Take one (1) tablet by mouth twice a day DOXYCYCLINE HYCLATE 100 MG CAPS 4084203 DOXYCYCLINE HYCLATE Inactive PENICILLIN V POTASSIUM 500 MG TAB 1 four times a day 2 PENICILLIN V POTASSIUM 500 MG TAB 638013 PENICILLIN V POTASSIUM Siri ctive PRISTIQ 50 MG [id number] 1 po qd PRISTIQ 50 MG [id number] DESVENLAFAXINE SUCCINATE Inactive TYLENOL/CODEINE #3 300-30 MG TAB 1-2 po q6hr PRN Pain TYLENOL/CODEINE #3 300-30 MG TAB 230230 ACETAMINOPHEN-CODEINE Inact krishna CEPHALEXIN 500 MG TABS Take one by mouth four times daily, morning, noon, early evening and bedtime. CEPHALEXIN 500 MG TABS 235545 CEPHALEXIN Inactive LORTAB 5 5-500 MG TABS 1/2 to 1 tablet by mouth go ry 6 hours as needed for pain LORTAB 5 5-500 MG TABS HYDROCODONE-A CETAMINOPHEN Inactive AMITRIPTYLINE HCL 25 MG TAB 1 tab by mouth daily 60 minutes before bedtime AMITRIPTYLINE HCL 25 MG TAB 674096 AMITRIPTYLINE HCL Inactive AMOXICILLIN 500 MG TABS 2 tabs PO bid x 10 d 7 AMOXICILLIN 500 MG TABS 551639 AMOXICILLIN Inactive IMPLANON 68 MG IMPL IMPLANTED IN LEFT ARM IMPLANON 68 MG IMPL ETONOGESTREL Inactive HYDROCODONE-ACETAMINOPHEN 5-325 MG TABS 1 PO tid PRN pain 5 HYDROCODONE-ACETAMINOPHEN 5-325 MG TABS 506219 HYDROCODONE-ACETAMIN OPHEN Inactive BACTRIM DS 800-160 MG TAB 1 tab by mouth twice daily 2 BACTRIM DS 800-160 MG TAB 350599 TRIMETHOPRIM-SULFAMETHOXAZOLE Inac tive CEPHALEXIN 500 MG CAPS 1 PO bid x 7 days CEPHALEXIN 500 MG CAPS 017035 CEPHALEXIN Inactive HYDROCODONE-ACETAMINOPHEN 5-325 MG TABS 1 tab by mouth every 6 hours as needed HYDROCODONE-ACETAMINOPHEN 5-325 MG TABS 752047 HYDROCODONE-ACETAMINOPHEN Inactive PROMETHAZINE-CODEINE 6.25-10 MG/5ML SYRP 1 tsp every 6 hrs prn c ough PROMETHAZINE-CODEINE 6.25-10 MG/5ML SYRP 478432 PROMETH AZINE-CODEINE Inactive IBUPROFEN 800 MG TAB 1 pill three times daily as needed for pain IBUPROFEN 800 MG TAB IBUPROFEN Inactive KEFLEX 500 MG CAP 1 tab po tid KEFLEX 500 MG CAP 458803 CEPHALEXIN Inactive HYDROCODONE-ACETAMINOPHEN 7.5-325 MG TABS 1 four times a day as needed for pain HYDROCODONE-ACETAMINOPHEN 7.5-325 MG TABS 782935 HYDROCODONE-ACETAMINOPHEN Inactive BACTRIM DS 800-160 MG TABS by mouth twice a day 11/05 BACTRIM DS 800-160 MG TABS 041819 SULFAMETHOXAZOLE-TRIMETHOPRIM Inactive IBUPROFEN 800 MG TABS 1 tid prn IBUPROFEN 800 MG TABS 861117 IBUPROFEN Inactive ENDOCET 10-325 MG TABS 1 q 6 hr prn ENDOC ET 10-325 MG TABS 8301856 OXYCODONE-ACETAMINOPHEN Inactive HYDROCODONE-ACETAMINOPHEN 7.5-325 MG TABS 1 by mouth e very 6 hours as needed for pain HYDROCODONE-ACETAMINOPHEN 7.5-325 MG TABS 005860 HYDROCODONE-ACETAMINOPHEN Inactive PERCOCET 7.5-325 MG TABS 1 PO q 8 hrs PRN pain PERCOCET 7.5-325 MG TABS 9166625 OXYCODONE-ACETAMINOPHEN Inactive LIDODERM 5 % PTCH One patch to painful area [place] N. On for 12 hrs, off for 12 hrs. LIDODERM 5 % PTCH 7184362 LIDOCAINE Inactiv e PERCOCET 7.5-325 MG TABS 1 PO tid PRN pain PERCOCET 7.5- 325 MG TABS 2435971 OXYCODONE-ACETAMINOPHEN Inactive MOBIC 15 MG TABS 1 tab daily MOBIC 15 MG TABS 15 2695 MELOXICAM Inactive CYCLOBENZAPRINE HCL 10 MG TABS 1/2 - 1 tab PO tid PRN back p ain, muscle spasm CYCLOBENZAPRINE HCL 10 MG TABS 119848 CYCLOBENZA JOSEPH HCL Inactive LORATADINE 10 MG TABS 1 tablet by mouth daily LORATADINE 10 MG TABS 044898 LORATADINE Inactive HYDROCODONE-ACETAMINOPHEN 10-325 MG TABS 1 by mouth ev chaka 8 hours as needed for pain HYDROCODONE-ACETAMINOPHEN 10-325 MG TABS 687458 HYDROCODONE-ACETAMINOPHEN Inactive LC-5 LIDOCAINE 5 % CREA apply 1 time daily to affected area 2013 LC-5 LIDOCAINE 5 % CREA 1289056 LIDOCAINE (ANORECTAL) In active PERCOCET 5-325 MG TAB 1 every 6 hours as needed PERCOCET 5-325 MG TAB 0264260 OXYCODONE-ACETAMINOPHEN Inactive KEFLEX 500 MG CAP 1 po qid KEFLEX 500 MG CAP 30 9114 CEPHALEXIN Inactive PROAIR HFA 108 (90 BASE) MCG/ACT AERS 2 puff q 4-6 hrs PRN 01/24 PROAIR HFA 108 (90 BASE) MCG/ACT AERS ALBUTEROL SULFATE Inactive PERCOCET 10-325 MG ORAL TABS 1 every 4 hours as needed PERCOCET 10-325 MG ORAL TABS 3185132 OXYCODONE-ACETAMINOPHEN Inactiv e EMLA 2.5-2.5 % EXT CREA apply to skin lesion q 6 hours, prn 2014 EMLA 2.5-2.5 % EXT CREA 681177 LIDOCAINE-PRILOCAINE Siri ctive PERCOCET 10-325 MG TABS 1 tab by mouth every 6 hours , use sparingly for severe pain PERCOCET 10-325 MG TABS 5451985 OXYCODONE-ACETAMINOPHEN Inactive GLUCOPHAGE 500 MG ORAL TABS one by mouth 3 times a day GLUCOPHAGE 500 MG ORAL TABS 825832 METFORMIN HCL Inactive HYDROCODONE-ACETAMINOPHEN 5-325 MG TABS 1 po q6hr PRN pain 06/30 HYDROCODONE-ACETAMINOPHEN 5-325 MG TABS 596079 HYDROCOD ONE-ACETAMINOPHEN Inactive PERCOCET 5-325 MG TAB 1 tab po q 6 -8 hours, prn for severe pain PERCOCET 5-325 MG TAB 9296092 OXYCODONE-ACETAMINOPHEN In active PERCOCET 5-325 MG ORAL TABS 1 every 6 hours as needed PERCOCET 5-325 MG ORAL TABS [id number] OXYCODONE-ACETAMINOPHEN Inactive DICLOFENAC SODIUM 50 MG TBEC 1 tablet by mouth four times da tom PRN Pain DICLOFENAC SODIUM 50 MG TBEC [id number] DICLOFENAC S ODIUM Inactive AUGMENTIN 500-125 MG ORAL TABS 1 by mouth twice a day AUGMENTIN 500-125 MG ORAL TABS [id number] AMOXICILLIN-POT CLAVULANATE I nactive HYDROCODONE-ACETAMINOPHEN 5-325 MG TABS 1 po q6hr PRN Pain 03/09 HYDROCODONE-ACETAMINOPHEN 5-325 MG TABS [id number] HYDROCOD ONE-ACETAMINOPHEN Inactive CYCLOBENZAPRINE HCL 10 MG TABS 1 tablet by mouth three times daily as needed for muscle spasm/pain CYCLOBENZAPRINE HCL 10 MG TABS [id number] CYCLOBENZAPRINE HCL Inactive SPRINTEC 28 0.25-35 MG-MCG TABS 1 pill by mouth daily for bi rth control SPRINTEC 28 0.25-35 MG-MCG TABS [id number] NORGESTIMATE-ETH ESTRADIOL Inactive PERCOCET 5-325 MG TAB 1 tab po q 6 hours, prn severe pain PERCOCET 5-325 MG TAB [id number] OXYCODONE-ACETAMINOPHEN Inactive IBUPROFEN 600 MG ORAL TABS 1 by mouth twice a day 2014 IBUPROFEN 600 MG ORAL TABS [id number] IBUPROFEN Inactive CYMBALTA 30 MG CPEP 1 cap by mouth daily CYMBALTA 30 MG CPEP [id number] DULOXETINE HCL Inactive HYDROCODONE-ACETAMINOPHEN 5-325 MG TABS 1 po q6hr PRN Pain 04/09 HYDROCODONE-ACETAMINOPHEN 5-325 MG TABS [id number] HYDROCOD ONE-ACETAMINOPHEN Inactive TRAZODONE HCL 100 MG TAB 0.5 to 1 po qHS PRN Insomnia TRAZODONE HCL 100 MG TAB [id number] TRAZODONE HCL Inactive ALPRAZOLAM 0.5 MG TABS 1 po BID PRN Anxiety ALPRAZOLAM 0.5 MG TABS [id number] ALPRAZOLAM Inactive [id number] 50-325-40 MG ORAL CAPS 1-2 po TID [place] N Headache [id number] 50-325-40 MG ORAL CAPS 2 63659 [id number] Inactive HYDROCODONE-ACETAMINOPHEN 5-325 MG TABS 1 po TID PRN Pain 9 HYDROCODONE-ACETAMINOPHEN 5-325 MG TABS [id number] HYDROCODONE-ACETAMIN OPHEN Inactive PERCOCET 10-325 MG TABS 1 tablet every 8 hours as needed for antonia n PERCOCET 10-325 MG TABS [id number] OXYCODONE-ACETAMINOPHEN Inactive ONDANSETRON 4 MG TBDP 1 q4h PRN nausea ON DANSETRON 4 MG TBDP [id number] ONDANSETRON Inactive VIIBRYD 10 & 20 & 40 MG KIT 1 po qd as directed 07/24 VIIBRYD 10 & 20 & 40 MG KIT VILAZODONE HCL Inactive DICLOFENAC SODIUM 50 MG TBEC 1 tablet by mouth four times da tom PRN Pain DICLOFENAC SODIUM 50 MG TBEC [id number] DICLOFENAC S ODIUM Inactive PERCOCET 10-325 MG ORAL TABS one every 6 hours prn pain PERCOCET 10-325 MG ORAL TABS [id number] OXYCODONE-ACETAMINOPHEN Inactiv e PERCOCET 10-325 MG ORAL TABS take 1 tab by mouth q 4hours as needed for pain PERCOCET 10-325 MG ORAL TABS [id number] OXYCODONE-ACETAMINOPHEN Inactive FLONASE ALLERGY RELIEF 50 MCG/ACT NASAL SUSP One spray in each nostril twice a day. FLONASE ALLERGY RELIEF 50 MCG/ACT NASAL S [facility] 685210 FLUTICASONE PROPIONATE Inactive AUGMENTIN 875-125 MG TAB 1 tab by mouth twice daily with food 20 23/05/16 AUGMENTIN 875-125 MG TAB 927841 AMOXICILLIN-POT [place] Inactive HYDROCODONE-ACETAMINOPHEN 5-325 MG TABS 1 tab by mouth every 6 hours as needed for pain HYDROCODONE-ACETAMINOPHEN 5-325 MG TABS 8 64790 HYDROCODONE-ACETAMINOPHEN Inactive PERCOCET 10-325 MG TABS 1 tablet every 8 hours as needed for antonia n PERCOCET 10-325 MG TABS [id number] OXYCODONE-ACETAMINOPHEN Inactive LC-4 LIDOCAINE 4 % EXT CREA apply q 6 hours, prn 08/03 LC-4 LIDOCAINE 4 % EXT CREA [id number] LIDOCAINE Inactive PROMETHAZINE HCL 25 MG TABS 1 four times a day as needed for nausea/vomiting PROMETHAZINE HCL 25 MG TABS 808776 PROMETHAZINE HCL Inactive AMOXICILLIN 875 MG TABS 1 tab by mouth twice daily 201 07/18/07 AMOXICILLIN 875 MG TABS 429760 AMOXICILLIN Inactive KEFLEX 500 MG CAP 1 po tid x 10 days KEFLEX 500 MG CAP 185299 CEPHALEXIN Inactive AMOXICILLIN 875 MG TABS 1 tab by mouth twice daily 201 07/19/27 AMOXICILLIN 875 MG TABS 228121 AMOXICILLIN Inactive AMOXICILLIN 875 MG TABS 1 tab by mouth twice daily 201 08/09/13 AMOXICILLIN 875 MG TABS 664912 AMOXICILLIN Inactive CIPRO 500 MG TAB 1 tablet by mouth twice daily CIPRO 500 MG TAB 515270 CIPROFLOXACIN HCL Inactive BACTRIM DS 800-160 MG TAB 1 tab by mouth twice daily 2 BACTRIM DS 800-160 MG TAB 987218 TRIMETHOPRIM-SULFAMETHOXAZOLE Inac tive LEVAQUIN 500 MG TABS 1 PO q day x 7 days LEVAQUIN 500 MG TABS 583001 LEVOFLOXACIN Inactive CLINDAMYCIN HCL 300 MG CAPS 1 po QID x 7 days CLINDAMYCIN HCL 300 MG CAPS 949074 CLINDAMYCIN HCL Inactive AUGMENTIN 875-125 MG TAB 1 tab by mouth twice daily with food 20 22/05/07 AUGMENTIN 875-125 MG TAB 872218 AMOXICILLIN-POT [place] Inactive DIFLUCAN 150 MG TAB 1 qODay x 2 doses DIFLUCAN 150 MG TAB 345076 FLUCONAZOLE Inactive PREDNISONE 20 MG TAB 2 tabs daily for 3 days, 1 t ab daily for 3 days, 1/2 tab daily for 2 days PREDNISONE 20 MG TAB 574973 PREDNISON E Inactive AUGMENTIN 875-125 MG TAB 1 tab by mouth twice daily with food 20 21/10/13 AUGMENTIN 875-125 MG TAB 522635 AMOXICILLIN-POT [place] Inactive HYDROCODONE-ACETAMINOPHEN 5-325 MG TABS 1 tab by mouth every 6 hours as needed PRN Pain HYDROCODONE-ACETAMINOPHEN 5-325 MG TABS 8 57470 HYDROCODONE-ACETAMINOPHEN Inactive PROMETHAZINE HCL 25 MG TABS 1 four times a day as needed for nausea/vomiting PROMETHAZINE HCL 25 MG TABS 870125 PROMETHAZINE HCL Inactive AMOXICILLIN 500 MG CAPS 2 po BID x 10 days AMOXICILLIN 500 MG CAPS 761981 AMOXICILLIN Inactive Advance Directives Directive Description Start Date PERMISSION TO SHARE Immunizations Vaccine Administration Date Value Standard Alf cription Seasonal influenza vaccine, injectable, containing preservative, for > 3 years old (Afluria, FluLaval, Fluzone, Fluvirin, Fluarix, Agriflu(>= 18 yo)) Fluzone (>3 yrs.) [[id number]] Influenza, seasonal, inject able Seasonal influenza vaccine, injectable, preservative free, for > 3 years old (Afluria, FluLaval, Fluzone, Fluvirin, Fluarix, Agriflu(>= 18 yo)) Fluzone preservative free (>3 yrs.) [[id number]] Influenza, seasonal, injectable, preservative free Seasonal influenza vaccine, injectable, containing preservative, for > 3 years old (Afluria, FluLaval, Fluzone, Fluvirin, Fluarix, Agriflu(>= 18 yo)) Fluzone (>3 yrs.) [[id number]] Influenza, seasonal, inject able Seasonal influenza vaccine, injectable, containing preservative, for > 3 years old (Afluria, FluLaval, Fluzone, Fluvirin, Fluarix, Agriflu(>= 18 yo)) Fluzone (>3 yrs.) [[id number]] Influenza, seasonal, inject able dT (Diphtheria and [...] Panel - Chemistry sodium, serum 142 mmol/L 582-359 0307/05/12 potassium, serum 4.8 mmol/L 3.5-5.2 chloride, serum [...] ... - Chemistry sodium, serum 137 mmol/L [phone]/02/24 carbon dioxide, venous blood 26.3 mmol/L 21.0-32 [...] Panel - Chemistry cholesterol, serum 181 mg/dL 366-034 6808/09/01 triglyceride, serum, fasting 341 mg/dL 30-200 HDL cholesterol, serum 22 mg/dL 32-96 LDL cholesterol, serum 91 mg/dL 0-130 cholesterol, serum 165 mg/dL 779-316 7143/05/12 triglyceride, serum, fasting 524 mg/dL 30-200 HDL [...] negative Encounters Code Encounter Date Provider Facility CPT-76720 Level 4 Est. Patient 16:38:26 ICT SYSTEMS TEST ENGINEER Abdirahman Rios MD [facility] CPT-76042 Level 3 Est. Patient 05:31:41 ICT SYSTEMS TEST ENGINEER Kalpesh goins MD [facility] CPT-55154 Level 3 Est. Patient 11:22:02 ICT SYSTEMS TEST ENGINEER Hira muniz [facility] CPT-73339 Level 3 Est. Patient 21:00:18 ICT SYSTEMS TEST ENGINEER Rajni danielson [facility] CPT-00370 Level 3 Est. Patient 14:15:00 ICT SYSTEMS TEST ENGINEER Kalpesh goins MD [facility] CPT-72392 Level 2 Est. Patient 19:57:52 ICT SYSTEMS TEST ENGINEER Rajni danielson [facility] CPT-70943 Level 3 Est. Patient 16:58:40 ICT SYSTEMS TEST ENGINEER Bj funes MD [facility] CPT-39293 Level 3 Est. Patient 08:51:33 CDT Kalpesh goins MD [facility] CPT-80966 Level 4 Est. Patient 14:14:53 CDT Abdirahman Rios MD [facility] CPT-34561 Level 3 Est. Patient 15:47:40 CDT Kalpesh goins MD [facility]-11248 Level 3 Est. Patient 10:57:26 CDT Abdirahman Rios MD [facility]-06231 Level 3 Est. Patient 14:29:53 CDT Abhinav Galvan MD [facility] CPT-17307 Level 2 Est. Patient 16:33:01 CDT Kalpesh goins MD [facility]-09684 Level 4 Est. Patient 16:44:56 CDT Abdirahman Rios MD [facility]-17713 Level 2 Est. Patient 07:49:32 CDT Kalpesh goins MD [facility] CPT-32711 Level 3 New Patient 15:47:11 ICT SYSTEMS TEST ENGINEER Bj huber MD [facility]-21959 Level 4 Est. Patient 14:37:38 ICT SYSTEMS TEST ENGINEER Abdirahman Rios MD [facility] CPT-98322 Level 2 Est. Patient 13:32:17 ICT SYSTEMS TEST ENGINEER Kalpesh goins MD [facility]-40151 Level 3 Est. Patient 17:32:57 ICT SYSTEMS TEST ENGINEER Edilberto tiwari [facility] CPT-42753 Level 3 Est. Patient 17:22:33 ICT SYSTEMS TEST ENGINEER Edilberto tiwari [facility] CPT-33923 Level 2 Est. Patient 16:57:09 ICT SYSTEMS TEST ENGINEER Kalpesh goins MD [facility]-87311 Level 3 Est. Patient 14:03:08 ICT SYSTEMS TEST ENGINEER Abdirahman Rios MD [facility]-20728 Level 3 Est. Patient 18:12:34 CDT Shola Wright [facility] CPT-91373 Level 3 Est. Patient 19:34:46 CDT Shola W Cloven [facility] CPT-74179 Level 3 Est. Patient 14:19:37 CDT Abdirahman Rios MD [facility] CPT-68786 Level 3 Est. Patient 14:11:58 CDT Kalpesh goins MD [facility] CPT-50250 Level 3 Est. Patient 16:50:00 CDT Michelle Deleon atilio MERCADO [facility] CPT-66342 Level 3 Est. Patient 17:11:32 ICT SYSTEMS TEST ENGINEER Brandie bates MD PhD [facility] CPT-59400 Level 3 Est. Patient 16:31:47 ICT SYSTEMS TEST ENGINEER Shola Wright [facility] CPT-26070 Level 3 Est. Patient 17:51:10 ICT SYSTEMS TEST ENGINEER Abhinav Galvan MD [facility] CPT-44395 Level 4 Est. Patient 12:54:56 ICT SYSTEMS TEST ENGINEER Kalpesh goins MD [facility] CPT-75910 Level 4 Est. Patient 12:53:56 ICT SYSTEMS TEST ENGINEER Kalpesh goins MD [facility] CPT-33849 Level 3 Est. Patient 17:56:58 CDT Shola Wright [facility] CPT-39316 Level 3 Est. Patient 14:26:20 CDT Janak butcher [facility] CPT-28743 Level 3 Est. Patient 09:38:41 CDT Shola Wright [facility] CPT-28109 Level 3 Est. Patient 14:45:26 CDT Edilberto tiwari [facility] CPT-67071 Level 3 Est. Patient 10:51:33 CD[facility] Est[facility] Patient 11:57:55 ICT SYSTEMS TEST ENGINEER Shola Wright [facility] CPT-22287 Level 3 Est. Patient 09:53:33 ICT SYSTEMS TEST ENGINEER Edilberto tiwari DO [facility] CPT-62398 Level 3 Est. Patient 14:42:54 ICT SYSTEMS TEST ENGINEER Abhinav Galvan MD [facility] CPT-42412 Level 3 Est. Patient 15:10:02 CDT Janak Dominguez guadalupe MCGILL [facility] CPT-60486 Level 3 Est. Patient 15:20:20 CDT Theo dennis MD [facility] CPT-56155 Level 2 Est. Patient 14:08:57 CDT Kalpesh goins MD [facility] CPT-15770 Level 3 Est. Patient 13:56:19 CDT Abdirahman Rios MD [facility] CPT-78292 Level 3 Est. Patient 13:59:37 CDT Abdirahman Rios MD [facility]-25586 Level 2 Est. Patient 14:44:59 CDT Kalpesh goins MD [facility] CPT-43597 Level 3 Est. Patient 06:06:23 CDT Edilberto tiwari DO [facility] CPT-57310 Level 3 Est. Patient 15:23:54 CDT Abdirahman Rios MD [facility] CPT-00435 Level 3 Est. Patient 15:43:49 CDT Abdirahman Rios MD [facility] CPT-29354 Level 3 Est. Patient 12:46:47 ICT SYSTEMS TEST ENGINEER Abdirahman Rios MD [facility] CPT-18648 Level 3 Est. Patient 08:13:35 ICT SYSTEMS TEST ENGINEER Abdirahman Rios MD [facility] CPT-52638 Level 2 Est. Patient 09:36:42 ICT SYSTEMS TEST ENGINEER Abdirahman Rios MD [facility] CPT-43565 Level 3 Est. Patient 10:56:43 CDT Abdirahman Rios MD [facility] CPT-39042 Level 3 Est. Patient 18:24:52 CDT Abdirahman Rios MD [facility] CPT-85317 Level 3 Est. Patient 13:27:22 CDT Abdirahman Rios MD [facility] Procedures Code Procedure Name Date Entry Date Standard Desc ription CPT-30099 Postop F/U Visit 16:21:51 ICT SYSTEMS TEST ENGINEER CPT-66469 Postop F/U Visit 17:09:41 ICT SYSTEMS TEST ENGINEER CPT-63563 Postop F/U Visit 14:08:43 ICT SYSTEMS TEST ENGINEER CPT-27250 Postop F/U Visit 15:18:16 ICT SYSTEMS TEST ENGINEER CPT-81884 Postop F/U Visit 15:03:49 ICT SYSTEMS TEST ENGINEER CPT-68030 Postop F/U Visit 14:45:23 ICT SYSTEMS TEST ENGINEER CPT-20671 Postop F/U Visit 14:11:03 ICT SYSTEMS TEST ENGINEER CPT-85406 Postop F/U Visit 18:21:21 ICT SYSTEMS TEST ENGINEER CPT-66152 Postop F/U Visit 15:57:12 ICT SYSTEMS TEST ENGINEER CPT-64718 Bladder Instillation 16:58:41 ICT SYSTEMS TEST ENGINEER 6 CPT-50222 Fluzone Quadrivalent Intramuscular Suspe nsion 0.5 ML 15:20:56 ICT SYSTEMS TEST ENGINEER CPT-35397 Immunization Single Admin 15:20:56 ICT SYSTEMS TEST ENGINEER 2014 CPT-24070 Excis pilonidal cyst simple 08:51:34 CDT 20 22/04/20 CPT-95181 Venipuncture Draw Fee 14:27:29 CDT CPT-89440 Postop F/U Visit 15:27:43 CDT CPT-07553 Postop F/U Visit 14:40:59 CDT CPT-26036 Postop F/U Visit 15:02:46 CDT CPT-29974 Postop F/U Visit 11:29:00 ICT SYSTEMS TEST ENGINEER CPT-J0696 Rocephin 1000 mg (Ceftriaxone) 17:22:33 ICT SYSTEMS TEST ENGINEER CPT-87424 Postop F/U Visit 18:41:07 ICT SYSTEMS TEST ENGINEER CPT-00752 Postop F/U Visit 08:19:08 ICT SYSTEMS TEST ENGINEER CPT-56985 Immunization Single Admin 16:41:53 CDT 2013 CPT-12874 Fluzone Quadrivalent Intramuscular Suspe nsion 0.5 ML 16:41:53 CDT CPT-OV Office Visit 16:39:18 CDT CPT-OV Office Visit 16:16:36 CDT CPT-OV Office Visit 15:34:48 CDT CPT-61539 Postop F/U Visit 14:50:12 CDT CPT-96943 Postop F/U Visit 14:41:10 CDT CPT-36882 Venipuncture Draw Fee 11:38:04 ICT SYSTEMS TEST ENGINEER CPT-77344 Postop F/U Visit 19:02:59 ICT SYSTEMS TEST ENGINEER CPT-84150 Postop F/U Visit 12:04:54 ICT SYSTEMS TEST ENGINEER CPT-26010 Administration single or combination vac cine inc oral 15:56:43 CDT CPT-44104 Influenza split virus > age 3 15:56:43 CDT CPT-18728 Hand comp min 3V 14:25:19 CDT CPT-19504 Postop F/U Visit 21:40:51 CDT CPT-03561 Postop F/U Visit 10:58:43 CDT CPT-51232 Administration single or combination vac cine inc oral 12:33:54 ICT SYSTEMS TEST ENGINEER CPT-31933 Influenza Preservative Free split virus >age 3 12:33:54 ICT SYSTEMS TEST ENGINEER CPT-10637 Administration single or combination vac cine inc oral 09:30:51 CDT CPT-12885 Influenza split virus > age 3 09:30:51 CDT CPT-26472 Postop F/U Visit 15:14:53 CDT CPT-68271 Postop F/U Visit 13:50:14 CDT CPT-60485 Postop F/U Visit 13:34:52 CDT CPT-OV Office Visit 16:55:03 CDT CPT-48762 [place] of cervix w bx ECC 13:32:50 CDT 10/19 CPT-J1885 Toradol 60 mg (Ketorolac) 15:31:59 CDT 2011 CPT-J1885 Toradol 60 mg (Ketorolac) 15:23:54 CDT 2011 CPT-25996 Visit 11:34:37 ICT SYSTEMS TEST ENGINEER CPT-18514 Visit 10:52:39 ICT SYSTEMS TEST ENGINEER CPT-33314 Visit 10:12:02 ICT SYSTEMS TEST ENGINEER CPT-80865 Visit 11:22:43 ICT SYSTEMS TEST ENGINEER CPT-53604 Visit 11:24:12 ICT SYSTEMS TEST ENGINEER CPT-63690 Visit 10:47:05 ICT SYSTEMS TEST ENGINEER CPT-OV Office Visit 10:26:16 ICT SYSTEMS TEST ENGINEER CPT-OV Office Visit 15:34:31 ICT SYSTEMS TEST ENGINEER CPT-34930 Visit 10:42:08 ICT SYSTEMS TEST ENGINEER CPT-69414 Visit 10:52:45 ICT SYSTEMS TEST ENGINEER CPT-000 Give Appropriate Flu Vaccine 16:56:41 CDT 2 CPT-45089 Administration single or combination vac cine inc oral 10:33:21 CDT CPT-72907 Influenza split virus > age 3 10:33:21 CDT CPT-72114 Visit 13:23:09 CDT CPT-93392 Visit 18:24:52 CDT CPT-48102 Sono OB comp > 14 weeks 12:07:49 CDT 04/07
--- OUTSIDE RECORDS SUMMARY | 2020-01-18 16:23 | XMS REPORT | Clinical Summary ---
Author Author Admin, Jeri Cabrera [employer] Address Unknown Phone Unavailable Allergies, Adverse Reactions, [...] Chronic pain syndrome 338.4 Active Rajni Alcazar SPLICER OPERATOR Chronic pain syndrome AFTERCARE FOLLOW SURGERY SKIN&SUBCUT [...] INFECTION SKIN&SUBCUTANEOUS TISSUE ICD-686.9 08/09 Inactive Abdirahman Riso MD OTH SPEC LOCAL INFECTIONS SKIN&SUBCUT TISSUE [...] Generic Name NDC Status Provider Patient Instruction [id number] 50-325-40 MG ORAL TABS 1 po TID PRN Headaches CLRAYCHBYF-COPN-[id number] Active Abdirahman owen MD Active CHANTIX STARTING MONTH MARGARITA 0.5 MG X 11 & 1 MG X 42 TAB S 0.5mg daily for 3 days, then 0.5mg BID for 4 days, then 1mg BID VARENICL INE TARTRATE [id number] Active Abdirahman Rios MD Active AMOXICILLIN 500 MG CAPS 2 po BID x 10 days AMOX ICILLIN 94730583862 No Longer Active Abdirahman Rios MD Active PROMETHAZINE HCL 25 MG TABS 1 four times a day as needed for nausea/vomiting PROMETHAZINE HCL 26057954568 No Longer Active Abdirahman Rios MD Active LC-4 LIDOCAINE 4 % EXT CREA apply q 6 hours, prn 08/03 LIDOCAINE 87471235050 No Longer Active Kalpesh Dong MD Active PERCOCET 10-325 MG TABS 1 tablet every 8 hours as needed for antonia n OXYCODONE-ACETAMINOPHEN 11185386216 No Longer Active Kalpesh Dong MD Active HYDROCODONE-ACETAMINOPHEN 5-325 MG TABS 1 tab by mouth every 6 hours as needed for pain HYDROCODONE-ACETAMINOPHEN 16773704370 No Longer Active Kalpesh Dong MD Active PERCOCET 10-325 MG ORAL TABS 1 every 4 hous as needed OXYCODONE-ACETAMINOPHEN 00608102386 Active Hira Moser APRN Active GLYDO 2 % EXT GEL apply to painful areas as needed LIDOCAINE HCL 44227375212 Active Kalpesh Dong MD Active LC-4 LIDOCAINE 4 % EXT CREA apply to painful area every 12 h ours or as needed LIDOCAINE 33862430284 Active Kalpesh Dong MD Active AUGMENTIN 875-125 MG TAB 1 tab by mouth twice daily with food 20 23/05/16 AMOXICILLIN-POT CLAVULANATE 58978573396 No Longer Active Lizeth hi Yokum SPLICER 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 FLUTICASONE PROPIONATE 89441230016 No Longer Ac tive Rajni Yokum SPLICER OPERATOR Active PERCOCET 10-325 MG ORAL TABS take 1 tab by mouth q 4hours as needed for pain OXYCODONE-ACETAMINOPHEN 42795616287 No Longer Active Rajni Yokum SPLICER OPERATOR Active PERCOCET 10-325 MG ORAL TABS one every 6 hours prn pain OXYCODONE-ACETAMINOPHEN 88894165989 No Longer Active Rajni Yokum SPLICER OPERATOR Active IBUPROFEN 800 MG TABS 1 tab po tid, with food I BUPROFEN 63741116836 Active Hira Perazal SPLICER OPERATOR Active DICLOFENAC SODIUM 50 MG TBEC 1 tablet by mouth four times da tom PRN Pain DICLOFENAC SODIUM 56297156125 No Longer Active Rajni Yokum SPLICER OPERATOR Active VIIBRYD 10 & 20 & 40 MG KIT 1 po qd as directed 07/24 VILAZODONE HCL 76381450756 No Longer Active Rajni Yokum SPLICER OPERATOR Active ONDANSETRON 4 MG TBDP 1 q4h PRN nausea ONDANSET KELBY 31052013885 No Longer Active Rajni Yokum SPLICER OPERATOR Active PERCOCET 10-325 MG TABS 1 tablet every 8 hours as needed for antonia n OXYCODONE-ACETAMINOPHEN 81675211069 No Longer Active Rajni Y okum SPLICER OPERATOR Active HYDROCODONE-ACETAMINOPHEN 5-325 MG TABS 1 po TID PRN Pain 9 HYDROCODONE-ACETAMINOPHEN 23454550783 No Longer Active Abdirahman Rios MD Active [id number] 50-325-40 MG ORAL CAPS 1-2 po TID OH N Headache [id number] 30579420658 No Longer Act krishna Kalpesh Dong MD Active ALPRAZOLAM 0.5 MG TABS 1 po BID PRN Anxiety ALP RAZOLAM 62593540427 No Longer Active Kalpesh Dong MD Active TRAZODONE HCL 100 MG TAB 0.5 to 1 po qHS PRN Insomnia TRAZODONE HCL 53293396467 No Longer Active Kalpesh Dong MD Activ e HYDROCODONE-ACETAMINOPHEN 5-325 MG TABS 1 po q6hr PRN Pain 04/09 HYDROCODONE-ACETAMINOPHEN 22976730777 No Longer Active Kalpesh Dong MD Active CYMBALTA 30 MG CPEP 1 cap by mouth daily DULOXE CLEO HCL 50525714601 No Longer Active Abdirahman Rios MD Active IBUPROFEN 600 MG ORAL TABS 1 by mouth twice a day 2014 IBUPROFEN 32188049121 No Longer Active Abdirahman Rios MD Activ e PERCOCET 5-325 MG TAB 1 tab po q 6 hours, prn severe pain 1 OXYCODONE-ACETAMINOPHEN 06935588073 No Longer Active Abdirahman Rios MD Active SPRINTEC 28 0.25-35 MG-MCG TABS 1 pill by mouth daily for bi rth control NORGESTIMATE-ETH ESTRADIOL 08205062467 No Longer Acti ve Hira Moser SPLICER OPERATOR Active CYCLOBENZAPRINE HCL 10 MG TABS 1 tablet by mouth three times daily as needed for muscle spasm/pain CYCLOBENZAPRINE HCL 71478955336 No Longer Active Hira Moser SPLICER OPERATOR Active HYDROCODONE-ACETAMINOPHEN 5-325 MG TABS 1 po q6hr PRN Pain 03/09 HYDROCODONE-ACETAMINOPHEN 31725338500 No Longer Active Hira Peraza l SPLICER OPERATOR Active AUGMENTIN 500-125 MG ORAL TABS 1 by mouth twice a day AMOXICILLIN-POT CLAVULANATE 21698579322 No Longer Active Hira Perazal SPLICER OPERATOR Active DICLOFENAC SODIUM 50 MG TBEC 1 tablet by mouth four times da tom PRN Pain DICLOFENAC SODIUM 42981713241 No Longer Active Karenin a Karmenl SPLICER OPERATOR Active PROMETHAZINE HCL 25 MG TABS 1 four times a day as needed for nausea/vomiting PROMETHAZINE HCL 24023307304 No Longer Active Abdirahman Rios MD Active HYDROCODONE-ACETAMINOPHEN 5-325 MG TABS 1 tab by mouth every 6 hours as needed PRN Pain HYDROCODONE-ACETAMINOPHEN 03665303385 No Longer Active Abdirahman Rios MD Active GEMFIBROZIL 600 MG TABS 1 po BID GEMFIBROZIL 25162638 005 Active Abdirahman Rios MD Active PERCOCET 5-325 MG ORAL TABS 1 every 6 hours as needed OXYCODONE-ACETAMINOPHEN 19057443498 No Longer Active Abdirahman Rios MD Active PERCOCET 5-325 MG TAB 1 tab po q 6 -8 hours, prn for severe pain OXYCODONE-ACETAMINOPHEN 63204415973 No Longer Active Abdirahman Rios MD Active HYDROCODONE-ACETAMINOPHEN 5-325 MG TABS 1 po q6hr PRN pain 06/30 HYDROCODONE-ACETAMINOPHEN 71626756912 No Longer Active Hira Peraza l SPLICER OPERATOR Active GLUCOPHAGE 500 MG ORAL TABS one by mouth 3 times a day METFORMIN HCL 39490582143 No Longer Active Hira Moser SPLICER OPERATOR Ac tive PERCOCET 10-325 MG TABS 1 tab by mouth every 6 hours , use sparingly for severe pain OXYCODONE-ACETAMINOPHEN 35634981993 No Longer A ctive Abdirahman Rios MD Active EMLA 2.5-2.5 % EXT CREA apply to skin lesion q 6 hours, prn 2014 LIDOCAINE-PRILOCAINE 75899039070 No Longer Active Abdirahman Rios MD Active PERCOCET 10-325 MG ORAL TABS 1 every 4 hours as needed OXYCODONE-ACETAMINOPHEN 00883436911 No Longer Active Abdirahman Rios MD Active AUGMENTIN 875-125 MG TAB 1 tab by mouth twice daily with food 20 21/10/13 AMOXICILLIN-POT CLAVULANATE 23909113761 No Longer Active Ursula jasmina Frazell SPLICER OPERATOR Active PROAIR HFA 108 (90 BASE) MCG/ACT AERS 2 puff q 4-6 hrs PRN 01/24 ALBUTEROL SULFATE 78164996935 No Longer Active Kalpesh Dong MD Active PREDNISONE 20 MG TAB 2 tabs daily for 3 days, 1 t ab daily for 3 days, 1/2 tab daily for 2 days PREDNISONE 92298491804 No Longer Active Abdirahman Rios MD Active KEFLEX 500 MG CAP 1 po qid CEPHALEXIN 412978554 20 No Longer Active Kalpesh Dong MD Active PERCOCET 5-325 MG TAB 1 every 6 hours as needed OXYCODONE-ACETAMINOPHEN 91322262077 No Longer Active Shola MCGILL Active LC-5 LIDOCAINE 5 % CREA apply 1 time daily to affected area 2013 LIDOCAINE (ANORECTAL) 88984577566 No Longer Active Hira F radhaell SPLICER OPERATOR Active HYDROCODONE-ACETAMINOPHEN 10-325 MG TABS 1 by mouth ev chaka 8 hours as needed for pain HYDROCODONE-ACETAMINOPHEN 65416733715 No Longer Active Jillina Frazell SPLICER OPERATOR Active LORATADINE 10 MG TABS 1 tablet by mouth daily L ORATADINE 22963614476 No Longer Active Jillina Frazell SPLICER OPERATOR Active DIFLUCAN 150 MG TAB 1 qODay x 2 doses FLUCONAZO LE 25590689489 No Longer Active Jillina Frazell SPLICER OPERATOR Active CYCLOBENZAPRINE HCL 10 MG TABS 1/2 - 1 tab PO tid PRN back p ain, muscle spasm CYCLOBENZAPRINE HCL 50978240662 No Longer Active Karen Moser APRN Active AUGMENTIN 875-125 MG TAB 1 tab by mouth twice daily with food 20 22/05/07 AMOXICILLIN-POT CLAVULANATE 76541077424 No Longer Active Loida Rios MD Active MOBIC 15 MG TABS 1 tab daily MELOXICAM 792601524 14 No Longer Active Abdirahman Rios MD Active PERCOCET 7.5-325 MG TABS 1 PO tid PRN pain OXYCODONE-ACETAMINOPHEN 10163247879 No Longer Active Abdirahman Rios MD Active LIDODERM 5 % PTCH One patch to painful area [place]. On for 12 hrs, off for 12 hrs. LIDOCAINE 48516895920 No Longer Active Abdirahman Rios MD Active PERCOCET 7.5-325 MG TABS 1 PO q 8 hrs PRN pain OXYCODONE-ACETAMINOPHEN 84610718232 No Longer Active Shola MCGILL Active HYDROCODONE-ACETAMINOPHEN 7.5-325 MG TABS 1 by mouth e very 6 hours as needed for pain HYDROCODONE-ACETAMINOPHEN 38258335466 No Longer Active Good Julian MD Active CLINDAMYCIN HCL 300 MG CAPS 1 po QID x 7 days CLINDAMYCIN HCL 97255072900 No Longer Active Abdirahman Rios MD Activ e BACTRIM DS 800-160 MG TABS 1 po BID x 7 days 5 SULFAMETHOXAZOLE-TRIMETHOPRIM 05154171298 No Longer Active Abdirahman Rios MD Active ENDOCET 10-325 MG TABS 1 q 6 hr prn OXYCODONE-ACETAMINOPHEN 74220455863 No Longer Active Abdirahman Rios MD Active IBUPROFEN 800 MG TABS 1 tid prn IBUPROFEN 72141 No Longer Active Abdirahman Rios MD Active BACTRIM DS 800-160 MG TABS by mouth twice a day 11/05 SULFAMETHOXAZOLE-TRIMETHOPRIM 00277087310 No Longer Active Good Julian MD Active HYDROCODONE-ACETAMINOPHEN 7.5-325 MG TABS 1 four times a day as needed for pain HYDROCODONE-ACETAMINOPHEN 83138166064 No Longer Activ e Good Julian MD Active KEFLEX 500 MG CAP 1 tab po tid CEPHALEXIN 616169 51173 No Longer Active Hira Moser APRN Active IBUPROFEN 800 MG TAB 1 pill three times daily as needed for pain IBUPROFEN 24916994395 No Longer Active Kalpesh Dong MD Active PROMETHAZINE-CODEINE 6.25-10 MG/5ML SYRP 1 tsp every 6 hrs prn c ough PROMETHAZINE-CODEINE 82207183737 No Longer Active Kalpesh Carr Active HYDROCODONE-ACETAMINOPHEN 5-325 MG TABS 1 tab by mouth every 6 hours as needed HYDROCODONE-ACETAMINOPHEN 76129143839 No Longer Activ e Shola MCGILL Active CEPHALEXIN 500 MG CAPS 1 PO bid x 7 days CEPHAL EXIN 99975532216 No Longer Active Shola MCGILL Active BACTRIM DS 800-160 MG TAB 1 tab by mouth twice daily 2 TRIMETHOPRIM-SULFAMETHOXAZOLE 30561183063 No Longer Active Kalpesh Dong MD Active HYDROCODONE-ACETAMINOPHEN 5-325 MG TABS 1 PO tid PRN pain 5 HYDROCODONE-ACETAMINOPHEN 27932418279 No Longer Active Abhinav Galvan MD Active IMPLANON 68 MG IMPL IMPLANTED IN LEFT ARM ETONO GESTREL 82635780265 No Longer Active Hira Moser APRN Active AMOXICILLIN 500 MG TABS 2 tabs PO bid x 10 d AM OXICILLIN 10213002340 No Longer Active Kalpesh Dong MD Active LEVAQUIN 500 MG TABS 1 PO q day x 7 days LEVOFL OXACIN 10995245610 No Longer Active Shola MCGILL Active AMITRIPTYLINE HCL 25 MG TAB 1 tab by mouth daily 60 minutes before bedtime AMITRIPTYLINE HCL 40663765513 No Longer Active Shola MCGILL Active LORTAB 5 5-500 MG TABS 1/2 to 1 tablet by mouth go ry 6 hours as needed for pain HYDROCODONE-ACETAMINOPHEN 82309516096 No Longer Active Shola MCGILL Active CEPHALEXIN 500 MG TABS Take one by mouth four times daily, morning, noon, early evening and bedtime. CEPHALEXIN 66647792056 No Long er Active Hria Moser APRN Active TYLENOL/CODEINE #3 300-30 MG TAB 1-2 po q6hr PRN Pain ACETAMINOPHEN-CODEINE 73630501141 No Longer Active Edilberto Marion DO Active PRISTIQ 50 MG [id number] 1 po qd DESVENLAFAXI NE SUCCINATE 83628965937 No Longer Active Edilberto Marino DO Active PENICILLIN V POTASSIUM 500 MG TAB 1 four times a day 2 PENICILLIN V POTASSIUM 48609097055 No Longer Active Edilberto Marino DO Active DOXYCYCLINE HYCLATE 100 MG CAPS Take one (1) tablet by mouth twice a day DOXYCYCLINE HYCLATE 77193650070 No Longer Active Ronnie Galvan MD Active HYDROCODONE-ACETAMINOPHEN 5-325 MG TABS 1 po q 6hr PRN Pain 2011 HYDROCODONE-ACETAMINOPHEN 45355200167 No Longer Active Patri joan Perez RN Active BACTRIM DS 800-160 MG TAB 1 tab by mouth twice daily 2 TRIMETHOPRIM-SULFAMETHOXAZOLE 48525746255 No Longer Active Kalpesh Dong MD Active LORTAB 5 5-500 MG TABS 1/2 to 1 tablet by mouth go ry 4 hours as needed for pain HYDROCODONE-ACETAMINOPHEN 29753052008 No Longer Active Kalpesh Dong MD Active GENERESS FE 0.8-25 MG-MCG CHEW Take one by mouth daily NORETHIN-ETH ESTRADIOL-FE 27561701964 No Longer Active Kalpesh Dong MD Active HYDROCODONE-ACETAMINOPHEN 7.5-500 MG TABS 1-2 every 4 hours as needed HYDROCODONE-ACETAMINOPHEN 50757806123 No Longer Activ e Kalpesh Dong MD Active FERROUS SULFATE 325 (65 FE) MG TABS 1 tablet by mouth twice yung y FERROUS SULFATE 74548967477 No Longer Active Kalpesh Dong MD Active IBUPROFEN 600 MG TAB 1 po q6-8hr PRN IBUPROFEN 23238350616 No Longer Active Kalpesh Dong MD Active SPIRONOLACTONE 25 MG TAB 1 tablet by mouth daily 01/22 SPIRONOLACTONE 84351318906 No Longer Active Kalpesh Dong MD Acti ve HYDROCODONE-ACETAMINOPHEN 7.5-325 MG TABS 1 po QID PRN Pain 2011 HYDROCODONE-ACETAMINOPHEN 42346671055 No Longer Active Kalpesh Dong MD Active CLINDAMYCIN HCL 300 MG CAPS 1 po q6hr x 7 days CLINDAMYCIN HCL 70844390577 No Longer Active Edilberto Marino DO Active PREDNISONE 20 MG TAB 2 tabs daily for 4 days, 1 t ab daily for 4 days, 1/2 tab daily for 4 days PREDNISONE 36899185017 No Longer Active Edilberto Marino DO Active PERCOCET 5-325 MG TABS 1 tablet by mouth every 6 hours as ne eded for pain OXYCODONE-ACETAMINOPHEN 48056648138 No Longer Active Abdirahman Rios MD Active VITAMINS TABS Take one by mouth daily MV & MIN W/FE-FA TABS 08345234450 No Longer Active Abdirahman Rios MD Active LUIS 3-0.02 MG TABS 1 tablet by mouth daily as directed DROSPIRENONE-ETHINYL ESTRADIOL 72934965430 No Longer Active Abdirahman Rios MD Active LORATADINE 10 MG TABS 1 tablet by mouth daily L ORATADINE 94391918449 No Longer Active Kalpesh Dong MD Active HYDROCODONE-ACETAMINOPHEN 5-325 MG TABS 1 po q 6hr PRN Pain 2010 HYDROCODONE-ACETAMINOPHEN 77623435408 No Longer Active Edilberto Marino DO Active BACTRIM DS 800-160 MG TAB 1 tab by mouth twice daily 2 TRIMETHOPRIM-SULFAMETHOXAZOLE 82340907495 No Longer Active Abdirahman Rios MD Active 28-0.8 MG TABS Take one by mouth daily 09/20 VIT-FE FUMARATE-FA 92282089494 No Longer Active Abdirahman Rios MD Active CIPRO 500 MG TAB 1 tablet by mouth twice daily CIPROFLOXACIN HCL 58386502337 No Longer Active Abdirahman Rios MD Active BENADRYL 25 MG CAP 1 po q8hr PRN Congestion DIPHENHYDRAMINE HCL 98656529270 No Longer Active Abdirahman Rios MD Active ZOLOFT 50 MG TAB 1 po qd SERTRALINE HCL 418882 73777 No Longer Active Abdirahman Rios MD Active AMOXICILLIN 875 MG TABS 1 tab by mouth twice daily 201 08/09/13 AMOXICILLIN 08814327174 No Longer Active Abdirahman Rios MD Activ e AMOXICILLIN 875 MG TABS 1 tab by mouth twice daily 201 07/19/27 AMOXICILLIN 21106134024 No Longer Active Abdirahman Rios MD Activ e BACTRIM DS 800-160 MG TAB 2 tab by mouth twice daily 2 TRIMETHOPRIM-SULFAMETHOXAZOLE 51630522156 No Longer Active Abdirahman Rios MD Active KEFLEX 500 MG CAP 1 po tid x 10 days CEPHALEXIN 58370610384 No Longer Active Abdirahman Rios MD Active AMOXICILLIN 875 MG TABS 1 tab by mouth twice daily 201 07/18/07 AMOXICILLIN 95347026327 No Longer Active Abdirahman Rios MD Activ e BACTRIM DS 800-160 MG TAB 2 tab by mouth twice daily 2 BACTRIM DS 800-160 MG TAB 588910 TRIMETHOPRIM-SULFAMETHOXAZOLE Inactive ZOLOFT 50 MG TAB 1 po qd ZOLOFT 50 MG TAB 3129 41 SERTRALINE HCL Inactive BENADRYL 25 MG CAP 1 po q8hr PRN Congestion BENADRYL 25 MG CAP 5839031 DIPHENHYDRAMINE HCL Inactive 28-0.8 MG TABS Take one by mouth daily 09/20 28-0.8 MG TABS VIT-FE FUMARATE-FA Inactive HYDROCODONE-ACETAMINOPHEN 5-325 MG TABS 1 po q 6hr PRN Pain 2010 HYDROCODONE-ACETAMINOPHEN 5-325 MG TABS 697445 HYDROCODONE-ACETAMINOPHEN Inactive LORATADINE 10 MG TABS 1 tablet by mouth daily LORATADINE 10 MG TABS 377476 LORATADINE Inactive LUIS 3-0.02 MG TABS 1 tablet by mouth daily as directed LUIS 3-0.02 MG TABS 466223 DROSPIRENONE-ETHINYL ESTRADIOL Inactive VITAMINS TABS Take one by mouth daily VITAMINS TABS MV & MIN W/FE-FA TABS Inactive PERCOCET 5-325 MG TABS 1 tablet by mouth every 6 hours as ne eded for pain PERCOCET 5-325 MG TABS 8663963 OXYCODONE-ACETAMIN OPHEN Inactive PREDNISONE 20 MG TAB 2 tabs daily for 4 days, 1 t ab daily for 4 days, 1/2 tab daily for 4 days PREDNISONE 20 MG TAB 894790 PREDNISON E Inactive CLINDAMYCIN HCL 300 MG CAPS 1 po q6hr x 7 days CLINDAMYCIN HCL 300 MG CAPS 913167 CLINDAMYCIN HCL Inactive HYDROCODONE-ACETAMINOPHEN 7.5-325 MG TABS 1 po QID PRN Pain 2011 HYDROCODONE-ACETAMINOPHEN 7.5-325 MG TABS 757730 HYDROCODONE-ACETAMINOPHEN Inactive SPIRONOLACTONE 25 MG TAB 1 tablet by mouth daily 01/22 SPIRONOLACTONE 25 MG TAB 186063 SPIRONOLACTONE Inactive IBUPROFEN 600 MG TAB 1 po q6-8hr PRN IBUPROFEN 600 MG TAB 189165 IBUPROFEN Inactive FERROUS SULFATE 325 (65 FE) MG TABS 1 tablet by mouth twice yung y FERROUS SULFATE 325 (65 FE) MG TABS 844173 FERROUS SULF ATE Inactive HYDROCODONE-ACETAMINOPHEN 7.5-500 MG TABS 1-2 every 4 hours as needed HYDROCODONE-ACETAMINOPHEN 7.5-500 MG TABS HYDROCODONE-ACETAMINOPHEN Inactive GENERESS FE 0.8-25 MG-MCG CHEW Take one by mouth daily GENERESS FE 0.8-25 MG-MCG CHEW 5493949 NORETHIN-ETH ESTRADIOL-FE Inactive LORTAB 5 5-500 MG TABS 1/2 to 1 tablet by mouth go ry 4 hours as needed for pain LORTAB 5 5-500 MG TABS HYDROCODONE-A CETAMINOPHEN Inactive BACTRIM DS 800-160 MG TAB 1 tab by mouth twice daily 2 BACTRIM DS 800-160 MG TAB 103614 TRIMETHOPRIM-SULFAMETHOXAZOLE Inac tive HYDROCODONE-ACETAMINOPHEN 5-325 MG TABS 1 po q 6hr PRN Pain 2011 HYDROCODONE-ACETAMINOPHEN 5-325 MG TABS 290572 HYDROCODONE-ACETAMINOPHEN Inactive DOXYCYCLINE HYCLATE 100 MG CAPS Take one (1) tablet by mouth twice a day DOXYCYCLINE HYCLATE 100 MG CAPS 9772896 DOXYCYCLINE HYCLATE Inactive PENICILLIN V POTASSIUM 500 MG TAB 1 four times a day 2 PENICILLIN V POTASSIUM 500 MG TAB 085312 PENICILLIN V POTASSIUM Siri ctive PRISTIQ 50 MG [id number] 1 po qd PRISTIQ 50 MG [id number] DESVENLAFAXINE SUCCINATE Inactive TYLENOL/CODEINE #3 300-30 MG TAB 1-2 po q6hr PRN Pain TYLENOL/CODEINE #3 300-30 MG TAB 468218 ACETAMINOPHEN-CODEINE Inact krishna CEPHALEXIN 500 MG TABS Take one by mouth four times daily, morning, noon, early evening and bedtime. CEPHALEXIN 500 MG TABS 189378 CEPHALEXIN Inactive LORTAB 5 5-500 MG TABS 1/2 to 1 tablet by mouth go ry 6 hours as needed for pain LORTAB 5 5-500 MG TABS HYDROCODONE-A CETAMINOPHEN Inactive AMITRIPTYLINE HCL 25 MG TAB 1 tab by mouth daily 60 minutes before bedtime AMITRIPTYLINE HCL 25 MG TAB 830210 AMITRIPTYLINE HCL Inactive AMOXICILLIN 500 MG TABS 2 tabs PO bid x 10 d 7 AMOXICILLIN 500 MG TABS 768950 AMOXICILLIN Inactive IMPLANON 68 MG IMPL IMPLANTED IN LEFT ARM IMPLANON 68 MG IMPL ETONOGESTREL Inactive HYDROCODONE-ACETAMINOPHEN 5-325 MG TABS 1 PO tid PRN pain 5 HYDROCODONE-ACETAMINOPHEN 5-325 MG TABS 447804 HYDROCODONE-ACETAMIN OPHEN Inactive BACTRIM DS 800-160 MG TAB 1 tab by mouth twice daily 2 BACTRIM DS 800-160 MG TAB 762921 TRIMETHOPRIM-SULFAMETHOXAZOLE Inac tive CEPHALEXIN 500 MG CAPS 1 PO bid x 7 days CEPHALEXIN 500 MG CAPS 695863 CEPHALEXIN Inactive HYDROCODONE-ACETAMINOPHEN 5-325 MG TABS 1 tab by mouth every 6 hours as needed HYDROCODONE-ACETAMINOPHEN 5-325 MG TABS 565460 HYDROCODONE-ACETAMINOPHEN Inactive PROMETHAZINE-CODEINE 6.25-10 MG/5ML SYRP 1 tsp every 6 hrs prn c ough PROMETHAZINE-CODEINE 6.25-10 MG/5ML SYRP 694914 PROMETH AZINE-CODEINE Inactive IBUPROFEN 800 MG TAB 1 pill three times daily as needed for pain IBUPROFEN 800 MG TAB IBUPROFEN Inactive KEFLEX 500 MG CAP 1 tab po tid KEFLEX 500 MG CAP 644607 CEPHALEXIN Inactive HYDROCODONE-ACETAMINOPHEN 7.5-325 MG TABS 1 four times a day as needed for pain HYDROCODONE-ACETAMINOPHEN 7.5-325 MG TABS 246928 HYDROCODONE-ACETAMINOPHEN Inactive BACTRIM DS 800-160 MG TABS by mouth twice a day 11/05 BACTRIM DS 800-160 MG TABS 893262 SULFAMETHOXAZOLE-TRIMETHOPRIM Inactive IBUPROFEN 800 MG TABS 1 tid prn IBUPROFEN 800 MG TABS 103245 IBUPROFEN Inactive ENDOCET 10-325 MG TABS 1 q 6 hr prn ENDOC ET 10-325 MG TABS 5496834 OXYCODONE-ACETAMINOPHEN Inactive HYDROCODONE-ACETAMINOPHEN 7.5-325 MG TABS 1 by mouth e very 6 hours as needed for pain HYDROCODONE-ACETAMINOPHEN 7.5-325 MG TABS 903257 HYDROCODONE-ACETAMINOPHEN Inactive PERCOCET 7.5-325 MG TABS 1 PO q 8 hrs PRN pain PERCOCET 7.5-325 MG TABS 7619916 OXYCODONE-ACETAMINOPHEN Inactive LIDODERM 5 % PTCH One patch to painful area [place]. On for 12 hrs, off for 12 hrs. LIDODERM 5 % PTCH 8860783 LIDOCAINE Inactiv e PERCOCET 7.5-325 MG TABS 1 PO tid PRN pain PERCOCET 7.5- 325 MG TABS 0180753 OXYCODONE-ACETAMINOPHEN Inactive MOBIC 15 MG TABS 1 tab daily MOBIC 15 MG TABS 15 2695 MELOXICAM Inactive CYCLOBENZAPRINE HCL 10 MG TABS 1/2 - 1 tab PO tid PRN back p ain, muscle spasm CYCLOBENZAPRINE HCL 10 MG TABS 909025 CYCLOBENZA JOSEPH HCL Inactive LORATADINE 10 MG TABS 1 tablet by mouth daily LORATADINE 10 MG TABS 223758 LORATADINE Inactive HYDROCODONE-ACETAMINOPHEN 10-325 MG TABS 1 by mouth ev chaka 8 hours as needed for pain HYDROCODONE-ACETAMINOPHEN 10-325 MG TABS 707157 HYDROCODONE-ACETAMINOPHEN Inactive LC-5 LIDOCAINE 5 % CREA apply 1 time daily to affected area 2013 LC-5 LIDOCAINE 5 % CREA 8694981 LIDOCAINE (ANORECTAL) In active PERCOCET 5-325 MG TAB 1 every 6 hours as needed PERCOCET 5-325 MG TAB 5360484 OXYCODONE-ACETAMINOPHEN Inactive KEFLEX 500 MG CAP 1 po qid KEFLEX 500 MG CAP 30 9114 CEPHALEXIN Inactive PROAIR HFA 108 (90 BASE) MCG/ACT AERS 2 puff q 4-6 hrs PRN 01/24 PROAIR HFA 108 (90 BASE) MCG/ACT AERS ALBUTEROL SULFATE Inactive PERCOCET 10-325 MG ORAL TABS 1 every 4 hours as needed PERCOCET 10-325 MG ORAL TABS 9803423 OXYCODONE-ACETAMINOPHEN Inactiv e EMLA 2.5-2.5 % EXT CREA apply to skin lesion q 6 hours, prn 2014 EMLA 2.5-2.5 % EXT CREA 802331 LIDOCAINE-PRILOCAINE Siri ctive PERCOCET 10-325 MG TABS 1 tab by mouth every 6 hours , use sparingly for severe pain PERCOCET 10-325 MG TABS 9832192 OXYCODONE-ACETAMINOPHEN Inactive GLUCOPHAGE 500 MG ORAL TABS one by mouth 3 times a day GLUCOPHAGE 500 MG ORAL TABS 586881 METFORMIN HCL Inactive HYDROCODONE-ACETAMINOPHEN 5-325 MG TABS 1 po q6hr PRN pain 06/30 HYDROCODONE-ACETAMINOPHEN 5-325 MG TABS 729470 HYDROCOD ONE-ACETAMINOPHEN Inactive PERCOCET 5-325 MG TAB 1 tab po q 6 -8 hours, prn for severe pain PERCOCET 5-325 MG TAB [id number] OXYCODONE-ACETAMINOPHEN In active PERCOCET 5-325 MG ORAL TABS 1 every 6 hours as needed PERCOCET 5-325 MG ORAL TABS [id number] OXYCODONE-ACETAMINOPHEN Inactive DICLOFENAC SODIUM 50 MG TBEC 1 tablet by mouth four times da tom PRN Pain DICLOFENAC SODIUM 50 MG TBEC [id number] DICLOFENAC S ODIUM Inactive AUGMENTIN 500-125 MG ORAL TABS 1 by mouth twice a day AUGMENTIN 500-125 MG ORAL TABS [id number] AMOXICILLIN-POT CLAVULANATE I nactive HYDROCODONE-ACETAMINOPHEN 5-325 MG TABS 1 po q6hr PRN Pain 03/09 HYDROCODONE-ACETAMINOPHEN 5-325 MG TABS [id number] HYDROCOD ONE-ACETAMINOPHEN Inactive CYCLOBENZAPRINE HCL 10 MG TABS 1 tablet by mouth three times daily as needed for muscle spasm/pain CYCLOBENZAPRINE HCL 10 MG TABS [id number] CYCLOBENZAPRINE HCL Inactive SPRINTEC 28 0.25-35 MG-MCG TABS 1 pill by mouth daily for bi rth control SPRINTEC 28 0.25-35 MG-MCG TABS [id number] NORGESTIMATE-ETH ESTRADIOL Inactive PERCOCET 5-325 MG TAB 1 tab po q 6 hours, prn severe pain PERCOCET 5-325 MG TAB [id number] OXYCODONE-ACETAMINOPHEN Inactive IBUPROFEN 600 MG ORAL TABS 1 by mouth twice a day 2014 IBUPROFEN 600 MG ORAL TABS 675624 IBUPROFEN Inactive CYMBALTA 30 MG CPEP 1 cap by mouth daily CYMBALTA 30 MG CPEP [id number] DULOXETINE HCL Inactive HYDROCODONE-ACETAMINOPHEN 5-325 MG TABS 1 po q6hr PRN Pain 04/09 HYDROCODONE-ACETAMINOPHEN 5-325 MG TABS [id number] HYDROCOD ONE-ACETAMINOPHEN Inactive TRAZODONE HCL 100 MG TAB 0.5 to 1 po qHS PRN Insomnia TRAZODONE HCL 100 MG TAB [id number] TRAZODONE HCL Inactive ALPRAZOLAM 0.5 MG TABS 1 po BID PRN Anxiety ALPRAZOLAM 0.5 MG TABS 450841 ALPRAZOLAM Inactive [id number] 50-325-40 MG ORAL CAPS 1-2 po TID OH N Headache [id number] 50-325-40 MG ORAL CAPS 2 [id number] [id number] Inactive HYDROCODONE-ACETAMINOPHEN 5-325 MG TABS 1 po TID PRN Pain 9 HYDROCODONE-ACETAMINOPHEN 5-325 MG TABS [id number] HYDROCODONE-ACETAMIN OPHEN Inactive PERCOCET 10-325 MG TABS 1 tablet every 8 hours as needed for antonia n PERCOCET 10-325 MG TABS [id number] OXYCODONE-ACETAMINOPHEN Inactive ONDANSETRON 4 MG TBDP 1 q4h PRN nausea ON DANSETRON 4 MG TBDP [id number] ONDANSETRON Inactive VIIBRYD 10 & 20 & 40 MG KIT 1 po qd as directed 07/24 VIIBRYD 10 & 20 & 40 MG KIT VILAZODONE HCL Inactive DICLOFENAC SODIUM 50 MG TBEC 1 tablet by mouth four times da tom PRN Pain DICLOFENAC SODIUM 50 MG TBEC 685835 DICLOFENAC S ODIUM Inactive PERCOCET 10-325 MG ORAL TABS one every 6 hours prn pain PERCOCET 10-325 MG ORAL TABS [id number] OXYCODONE-ACETAMINOPHEN Inactiv e PERCOCET 10-325 MG ORAL TABS take 1 tab by mouth q 4hours as needed for pain PERCOCET 10-325 MG ORAL TABS [id number] OXYCODONE-ACETAMINOPHEN Inactive FLONASE ALLERGY RELIEF 50 MCG/ACT NASAL SUSP One spray in each nostril twice a day. FLONASE ALLERGY RELIEF 50 MCG/ACT NASAL S FDC 895585 FLUTICASONE PROPIONATE Inactive AUGMENTIN 875-125 MG TAB 1 tab by mouth twice daily with food 20 23/05/16 AUGMENTIN 875-125 MG TAB 871677 AMOXICILLIN-POT [place] Inactive HYDROCODONE-ACETAMINOPHEN 5-325 MG TABS 1 tab by mouth every 6 hours as needed for pain HYDROCODONE-ACETAMINOPHEN 5-325 MG TABS 8 89136 HYDROCODONE-ACETAMINOPHEN Inactive PERCOCET 10-325 MG TABS 1 tablet every 8 hours as needed for antonia n PERCOCET 10-325 MG TABS [id number] OXYCODONE-ACETAMINOPHEN Inactive LC-4 LIDOCAINE 4 % EXT CREA apply q 6 hours, prn 08/03 LC-4 LIDOCAINE 4 % EXT CREA [id number] LIDOCAINE Inactive PROMETHAZINE HCL 25 MG TABS 1 four times a day as needed for nausea/vomiting PROMETHAZINE HCL 25 MG TABS 976920 PROMETHAZINE HCL Inactive AMOXICILLIN 875 MG TABS 1 tab by mouth twice daily 201 07/18/07 AMOXICILLIN 875 MG TABS 274284 AMOXICILLIN Inactive KEFLEX 500 MG CAP 1 po tid x 10 days KEFLEX 500 MG CAP 931327 CEPHALEXIN Inactive AMOXICILLIN 875 MG TABS 1 tab by mouth twice daily 201 07/19/27 AMOXICILLIN 875 MG TABS 224669 AMOXICILLIN Inactive AMOXICILLIN 875 MG TABS 1 tab by mouth twice daily 201 08/09/13 AMOXICILLIN 875 MG TABS 407825 AMOXICILLIN Inactive CIPRO 500 MG TAB 1 tablet by mouth twice daily CIPRO 500 MG TAB 814167 CIPROFLOXACIN HCL Inactive BACTRIM DS 800-160 MG TAB 1 tab by mouth twice daily 2 BACTRIM DS 800-160 MG TAB 055601 TRIMETHOPRIM-SULFAMETHOXAZOLE Inac tive LEVAQUIN 500 MG TABS 1 PO q day x 7 days LEVAQUIN 500 MG TABS 484425 LEVOFLOXACIN Inactive CLINDAMYCIN HCL 300 MG CAPS 1 po QID x 7 days CLINDAMYCIN HCL 300 MG CAPS 085621 CLINDAMYCIN HCL Inactive AUGMENTIN 875-125 MG TAB 1 tab by mouth twice daily with food 20 22/05/07 AUGMENTIN 875-125 MG TAB 507138 AMOXICILLIN-POT [place] Inactive DIFLUCAN 150 MG TAB 1 qODay x 2 doses DIFLUCAN 150 MG TAB 407971 FLUCONAZOLE Inactive PREDNISONE 20 MG TAB 2 tabs daily for 3 days, 1 t ab daily for 3 days, 1/2 tab daily for 2 days PREDNISONE 20 MG TAB 846075 PREDNISON E Inactive AUGMENTIN 875-125 MG TAB 1 tab by mouth twice daily with food 20 21/10/13 AUGMENTIN 875-125 MG TAB 207325 AMOXICILLIN-POT [place] Inactive HYDROCODONE-ACETAMINOPHEN 5-325 MG TABS 1 tab by mouth every 6 hours as needed PRN Pain HYDROCODONE-ACETAMINOPHEN 5-325 MG TABS 8 69870 HYDROCODONE-ACETAMINOPHEN Inactive PROMETHAZINE HCL 25 MG TABS 1 four times a day as needed for nausea/vomiting PROMETHAZINE HCL 25 MG TABS 095895 PROMETHAZINE HCL Inactive AMOXICILLIN 500 MG CAPS 2 po BID x 10 days AMOXICILLIN 500 MG CAPS 011998 AMOXICILLIN Inactive Advance Directives Directive Description Start Date PERMISSION TO SHARE Immunizations Vaccine Administration Date Value Standard Alf cription Seasonal influenza vaccine, injectable, containing preservative, for > 3 years old (Afluria, FluLaval, Fluzone, Fluvirin, Fluarix, Agriflu(>= 18 yo)) Fluzone (>3 yrs.) [[id number]] Influenza, seasonal, inject able Seasonal influenza vaccine, injectable, preservative free, for > 3 years old (Afluria, FluLaval, Fluzone, Fluvirin, Fluarix, Agriflu(>= 18 yo)) Fluzone preservative free (>3 yrs.) [[id number]] Influenza, seasonal, injectable, preservative free Seasonal influenza vaccine, injectable, containing preservative, for > 3 years old (Afluria, FluLaval, Fluzone, Fluvirin, Fluarix, Agriflu(>= 18 yo)) Fluzone (>3 yrs.) [[id number]] Influenza, seasonal, inject able Seasonal influenza vaccine, injectable, containing preservative, for > 3 years old (Afluria, FluLaval, Fluzone, Fluvirin, Fluarix, Agriflu(>= 18 yo)) Fluzone (>3 yrs.) [[id number]] Influenza, seasonal, inject able dT (Diphtheria and [...] Panel - Chemistry sodium, serum 142 mmol/L 042-067 8689/05/12 potassium, serum 4.8 mmol/L 3.5-5.2 chloride, serum [...] ... - Chemistry sodium, serum 137 mmol/L 504-753 3650/02/24 carbon dioxide, venous blood 26.3 mmol/L 21.0-32 [...] Panel - Chemistry cholesterol, serum 181 mg/dL 977-573 2500/09/01 triglyceride, serum, fasting 341 mg/dL 30-200 HDL cholesterol, serum 22 mg/dL 32-96 LDL cholesterol, serum 91 mg/dL 0-130 cholesterol, serum 165 mg/dL [phone]/05/12 triglyceride, serum, fasting 524 mg/dL 30-200 HDL [...] negative Encounters Code Encounter Date Provider Facility CPT-66720 Level 4 Est. Patient 16:38:26 STACK CLERK Abdirahman Rios MD [facility] CPT-74075 Level 3 Est. Patient 05:31:41 STACK CLERK Kalpesh goins MD [facility] CPT-33547 Level 3 Est. Patient 11:22:02 STACK CLERK Hira muniz [facility] CPT-26491 Level 3 Est. Patient 21:00:18 STACK CLERK Rajni danielson [facility] CPT-82730 Level 3 Est. Patient 14:15:00 STACK CLERK Kalpesh goins MD [facility] CPT-27029 Level 2 Est. Patient 19:57:52 STACK CLERK Rajni Oconnor um SPLICER OPERATOR [facility] CPT-19812 Level 3 Est. Patient 16:58:40 STACK CLERK Bj funes MD [facility] CPT-29543 Level 3 Est. Patient 08:51:33 CDT Kalpesh goins MD [facility] CPT-63140 Level 4 Est. Patient 14:14:53 CDT Abdirahman Rios MD [facility] CPT-17730 Level 3 Est. Patient 15:47:40 CDT Kalpesh goins MD [facility] CPT-80807 Level 3 Est. Patient 10:57:26 CDT Abdirahman Rios MD [facility] CPT-01867 Level 3 Est. Patient 14:29:53 CDT Abhinav Galvan MD [facility] CPT-39813 Level 2 Est. Patient 16:33:01 CDT Kalpesh goins MD [facility] CPT-43406 Level 4 Est. Patient 16:44:56 CDT Abdirahman Rios MD [facility] CPT-76940 Level 2 Est. Patient 07:49:32 CDT Kalpesh goins MD [facility] CPT-33391 Level 3 New Patient 15:47:11 STACK CLERK Bj huber MD [facility] CPT-61238 Level 4 Est. Patient 14:37:38 STACK CLERK Abdirahman Rios MD [facility] CPT-43879 Level 2 Est. Patient 13:32:17 STACK CLERK Kalpesh goins MD [facility] CPT-46806 Level 3 Est. Patient 17:32:57 STACK CLERK Edilberto tiwari [facility] CPT-37483 Level 3 Est. Patient 17:22:33 STACK CLERK Edilberto tiwari [facility] CPT-53341 Level 2 Est. Patient 16:57:09 STACK CLERK Kalpesh goins MD [facility] CPT-51730 Level 3 Est. Patient 14:03:08 STACK CLERK Abdirahman Rios MD [facility] CPT-41038 Level 3 Est. Patient 18:12:34 CDT Shola Wright [facility] CPT-80532 Level 3 Est. Patient 19:34:46 CDT Shola Wright [facility] CPT-08756 Level 3 Est. Patient 14:19:37 CDT Abdirahman Rios MD [facility] CPT-77649 Level 3 Est. Patient 14:11:58 CDT Kalpesh goins MD [facility] CPT-74002 Level 3 Est. Patient 16:50:00 CDT Michelle MERCADO [facility] CPT-43649 Level 3 Est. Patient 17:11:32 STACK CLERK Brandie bates MD PhD [facility] CPT-81321 Level 3 Est. Patient 16:31:47 STACK CLERK Shola Wright [facility] CPT-71312 Level 3 Est. Patient 17:51:10 STACK CLERK Abhinav Galvan MD [facility] CPT-48645 Level 4 Est. Patient 12:54:56 STACK CLERK Kalpesh goins MD [facility] CPT-89388 Level 4 Est. Patient 12:53:56 STACK CLERK Kalpesh goins MD [facility] CPT-74542 Level 3 Est. Patient 17:56:58 CDT Shola Wright [facility] CPT-07296 Level 3 Est. Patient 14:26:20 CDT Janak butcher [facility] CPT-50130 Level 3 Est. Patient 09:38:41 CDT Shola Wright [facility] CPT-07535 Level 3 Est. Patient 14:45:26 CDT Edilberto tiwari [facility] CPT-30152 Level 3 Est. Patient 10:51:33 CDT [facility] CPT-17814 Level 3 Est. Patient 11:57:55 STACK CLERK Shola Wright [facility] CPT-86335 Level 3 Est. Patient 09:53:33 STACK CLERK Edilberto tiwari [facility] CPT-38479 Level 3 Est. Patient 14:42:54 STACK CLERK Abhinav Galvan MD [facility] CPT-28573 Level 3 Est. Patient 15:10:02 CDT Janak butcher [facility] CPT-16648 Level 3 Est. Patient 15:20:20 CDT Theo dennis MD [facility] CPT-44677 Level 2 Est. Patient 14:08:57 CDT Kalpesh goins MD [facility] CPT-66528 Level 3 Est. Patient 13:56:19 CDT Abdirahman Rios MD [facility] CPT-25188 Level 3 Est. Patient 13:59:37 CDT Abdirahman Rios MD [facility] CPT-48214 Level 2 Est. Patient 14:44:59 CDT Kalpesh goins MD [facility] CPT-62037 Level 3 Est. Patient 06:06:23 CDT Edilberto tiwari [facility] CPT-50121 Level 3 Est. Patient 15:23:54 CDT Abdirahman Rios MD [facility] CPT-67367 Level 3 Est. Patient 15:43:49 CDT Abdirahman Rios MD [facility] CPT-04094 Level 3 Est. Patient 12:46:47 STACK CLERK Abdirahman Rios MD [facility] CPT-35514 Level 3 Est. Patient 08:13:35 STACK CLERK Abdirahman Rios MD [facility] CPT-82223 Level 2 Est. Patient 09:36:42 STACK CLERK Abdirahman Rios MD [facility] CPT-17859 Level 3 Est. Patient 10:56:43 CDT Abdirahman Rios MD [facility] CPT-15020 Level 3 Est. Patient 18:24:52 CDT Abdirahman Rios MD [facility] CPT-64362 Level 3 Est. Patient 13:27:22 CDT Abdirahman Rios MD [facility] Procedures Code Procedure Name Date Entry Date Standard Desc ription CPT-20460 Postop F/U Visit 16:21:51 STACK CLERK CPT-15749 Postop F/U Visit 17:09:41 STACK CLERK CPT-89953 Postop F/U Visit 14:08:43 STACK CLERK CPT-78451 Postop F/U Visit 15:18:16 STACK CLERK CPT-72229 Postop F/U Visit 15:03:49 STACK CLERK CPT-98001 Postop F/U Visit 14:45:23 STACK CLERK CPT-68980 Postop F/U Visit 14:11:03 STACK CLERK CPT-83230 Postop F/U Visit 18:21:21 STACK CLERK CPT-76522 Postop F/U Visit 15:57:12 STACK CLERK CPT-00906 Bladder Instillation 16:58:41 STACK CLERK 6 CPT-83057 Fluzone Quadrivalent Intramuscular Suspe nsion 0.5 ML 15:20:56 STACK CLERK CPT-71859 Immunization Single Admin 15:20:56 STACK CLERK 2014 CPT-27308 Excis pilonidal cyst simple 08:51:34 CDT 20 22/04/20 CPT-56376 Venipuncture Draw Fee 14:27:29 CDT CPT-33326 Postop F/U Visit 15:27:43 CDT CPT-22174 Postop F/U Visit 14:40:59 CDT CPT-87458 Postop F/U Visit 15:02:46 CDT CPT-40178 Postop F/U Visit 11:29:00 STACK CLERK CPT-J0696 Rocephin 1000 mg (Ceftriaxone) 17:22:33 STACK CLERK CPT-61437 Postop F/U Visit 18:41:07 STACK CLERK CPT-10332 Postop F/U Visit 08:19:08 STACK CLERK CPT-81857 Immunization Single Admin 16:41:53 CDT 2013 CPT-60867 Fluzone Quadrivalent Intramuscular Suspe nsion 0.5 ML 16:41:53 CDT CPT-OV Office Visit 16:39:18 CDT CPT-OV Office Visit 16:16:36 CDT CPT-OV Office Visit 15:34:48 CDT CPT-82886 Postop F/U Visit 14:50:12 CDT CPT-55978 Postop F/U Visit 14:41:10 CDT CPT-20198 Venipuncture Draw Fee 11:38:04 STACK CLERK CPT-97923 Postop F/U Visit 19:02:59 STACK CLERK CPT-77396 Postop F/U Visit 12:04:54 STACK CLERK CPT-90137 Administration single or combination vac cine inc oral 15:56:43 CDT CPT-08898 Influenza split virus > age 3 15:56:43 CDT CPT-77064 Hand comp min 3V 14:25:19 CDT CPT-32121 Postop F/U Visit 21:40:51 CDT CPT-42773 Postop F/U Visit 10:58:43 CDT CPT-93797 Administration single or combination vac cine inc oral 12:33:54 STACK CLERK CPT-05062 Influenza Preservative Free split virus >age 3 12:33:54 STACK CLERK CPT-42159 Administration single or combination vac cine inc oral 09:30:51 CDT CPT-70729 Influenza split virus > age 3 09:30:51 CDT CPT-42735 Postop F/U Visit 15:14:53 CDT CPT-80237 Postop F/U Visit 13:50:14 CDT CPT-31853 Postop F/U Visit 13:34:52 CDT CPT-OV Office Visit 16:55:03 CDT CPT-31530 [place] of cervix w bx ECC 13:32:50 CDT 10/19 CPT-J1885 Toradol 60 mg (Ketorolac) 15:31:59 CDT 2011 CPT-J1885 Toradol 60 mg (Ketorolac) 15:23:54 CDT 2011 CPT-33563 Visit 11:34:37 STACK CLERK CPT-49247 Visit 10:52:39 STACK CLERK CPT-50434 Visit 10:12:02 STACK CLERK CPT-96506 Visit 11:22:43 STACK CLERK CPT-54164 Visit 11:24:12 STACK CLERK CPT-50390 Visit 10:47:05 STACK CLERK CPT-OV Office Visit 10:26:16 STACK CLERK CPT-OV Office Visit 15:34:31 STACK CLERK CPT-51129 Visit 10:42:08 STACK CLERK CPT-42417 Visit 10:52:45 STACK CLERK CPT-000 Give Appropriate Flu Vaccine 16:56:41 CDT 2 CPT-00626 Administration single or combination vac cine inc oral 10:33:21 CDT CPT-80691 Influenza split virus > age 3 10:33:21 CDT CPT-23655 Visit 13:23:09 CDT CPT-63121 Visit 18:24:52 CDT CPT-08057 Sono OB comp > 14 weeks 12:07:49 CDT 04/07
--- OUTSIDE RECORDS SUMMARY | 2020-01-18 16:24 | XMS REPORT | Clinical Summary ---
Author Author Admin, Jeri Rashid Organization [facility] Address Unknown Phone Unavailable Allergies, Adverse [...] NEC Abscess, perirectal 566 Active Hira roman MAILROOM MESSENGER Abscess of anal and rectal regions Hypertriglyceridemia [...] 1-2 q 4 hrs prn OXYCODO NE-ACETAMINOPHEN 22858131606 Active Kalpesh Dong MD Active TRAZODONE HCL 100 MG TAB 0.5 to 1 po qHS PRN Insomnia TRAZODONE HCL 24443234180 Active Abdirahman Rios MD Active CYMBALTA 30 MG CPEP 1 cap by mouth daily DULOXE CLEO HCL 93434014200 Active Abdirahman Rios MD Active EMLA 2.5-2.5 % EXT CREA apply to skin lesion q 6 hours, prn 2014 LIDOCAINE-PRILOCAINE 77839352801 No Longer Active Abdirahman Rios MD Active HYDROCODONE-ACETAMINOPHEN 5-325 MG TABS 1 po q6hr PRN pain HYDROCODONE-ACETAMINOPHEN 82875076356 Active Abdirahman Rios MD Active PERCOCET 10-325 MG ORAL TABS 1 every 4 hours as needed OXYCODONE-ACETAMINOPHEN 14456396063 No Longer Active Abdirahman Rios MD Active OHICUEOZGZ-[id number] 50-325-40 MG ORAL CAPS 1-2 po TID [place] N Headache LSOKFEZHJA-[id number]-[id number] 14646610215 Active Abdirahman Rios MD Active AUGMENTIN 875-125 MG TAB 1 tab by mouth twice daily with food 21/10/13 AMOXICILLIN-POT CLAVULANATE 01061819333 No Longer Active Ursula jasmina Frazell MAILROOM MESSENGER Active PROAIR HFA 108 (90 BASE) MCG/ACT AERS 2 puff q 4-6 hrs PRN 01/24 ALBUTEROL SULFATE 54447508205 No Longer Active Kalpesh Dong MD Active ALPRAZOLAM 0.5 MG TABS 1 po BID PRN Anxiety ALPRA ZOLAM 86252484557 Active Abdirahman Rios MD Active CYCLOBENZAPRINE HCL 10 MG TABS 1 tablet by mouth three times daily as needed for muscle spasm/pain CYCLOBENZAPRINE HCL 45233883208 Active Abdirahman Rios MD Active PREDNISONE 20 MG TAB 2 tabs daily for 3 days, 1 t ab daily for 3 days, 1/2 tab daily for 2 days PREDNISONE 00243150314 No Longer Active Abdirahman Rios MD Active KEFLEX 500 MG CAP 1 po qid CEPHALEXIN 885333560 20 No Longer Active Kalpesh Dong MD Active PERCOCET 5-325 MG TAB 1 every 6 hours as needed OXYCODONE-ACETAMINOPHEN 23856463634 No Longer Active Shola MCGILL Active LC-5 LIDOCAINE 5 % CREA apply 1 time daily to affected area 2013 LIDOCAINE (ANORECTAL) 03911876980 No Longer Active Hira muniz MAILROOM MESSENGER Active HYDROCODONE-ACETAMINOPHEN 10-325 MG TABS 1 by mouth ev chaka 8 hours as needed for pain HYDROCODONE-ACETAMINOPHEN 72499743457 No Longer Active Jillina Frazell MAILROOM MESSENGER Active LORATADINE 10 MG TABS 1 tablet by mouth daily L ORATADINE 35061594484 No Longer Active Jillina Frazell MAILROOM MESSENGER Active DIFLUCAN 150 MG TAB 1 qODay x 2 doses FLUCONAZO LE 52081036650 No Longer Active Jillina Frazell MAILROOM MESSENGER Active CYCLOBENZAPRINE HCL 10 MG TABS 1/2 - 1 tab PO tid PRN back p ain, muscle spasm CYCLOBENZAPRINE HCL 20349111458 No Longer Active Karen herson Frazell MAILROOM MESSENGER Active AUGMENTIN 875-125 MG TAB 1 tab by mouth twice daily with food 20 22/05/07 AMOXICILLIN-POT CLAVULANATE 89842921883 No Longer Active Loida Rios MD Active MOBIC 15 MG TABS 1 tab daily MELOXICAM 596355257 14 No Longer Active Abdirahman Rios MD Active PERCOCET 7.5-325 MG TABS 1 PO tid PRN pain OXYCODONE-ACETAMINOPHEN 07887155481 No Longer Active Abdirahman Rios MD Active LIDODERM 5 % PTCH One patch to painful area [place] N. On for 12 hrs, off for 12 hrs. LIDOCAINE 84524028964 No Longer Active Abdirahman Rios MD Active PERCOCET 7.5-325 MG TABS 1 PO q 8 hrs PRN pain OXYCODONE-ACETAMINOPHEN 74957997410 No Longer Active Shola MCGILL Active HYDROCODONE-ACETAMINOPHEN 7.5-325 MG TABS 1 by mouth e very 6 hours as needed for pain HYDROCODONE-ACETAMINOPHEN 23816374422 No Longer Active Good Julian MD Active CLINDAMYCIN HCL 300 MG CAPS 1 po QID x 7 days CLINDAMYCIN HCL 92693048444 No Longer Active Abdirahman Rios MD Activ e BACTRIM DS 800-160 MG TABS 1 po BID x 7 days 5 SULFAMETHOXAZOLE-TRIMETHOPRIM 57494215434 No Longer Active Abdirahman Rios MD Active ENDOCET 10-325 MG TABS 1 q 6 hr prn OXYCODONE-ACETAMINOPHEN 82316485414 No Longer Active Abdirahman Rios MD Active IBUPROFEN 800 MG TABS 1 tid prn IBUPROFEN 073520 89052 No Longer Active Abdirahman Rios MD Active BACTRIM DS 800-160 MG TABS by mouth twice a day 11/05 SULFAMETHOXAZOLE-TRIMETHOPRIM 55347404464 No Longer Active Good Julian MD Active HYDROCODONE-ACETAMINOPHEN 7.5-325 MG TABS 1 four times a day as needed for pain HYDROCODONE-ACETAMINOPHEN 14173520327 No Longer Activ e Good Julian MD Active KEFLEX 500 MG CAP 1 tab po tid CEPHALEXIN 771098 86468 No Longer Active Hira Moser APRN Active IBUPROFEN 800 MG TAB 1 pill three times daily as needed for pain IBUPROFEN 88508074908 No Longer Active Kalpesh Dong MD Active PROMETHAZINE-CODEINE 6.25-10 MG/5ML SYRP 1 tsp every 6 hrs prn c ough PROMETHAZINE-CODEINE 57175314828 No Longer Active Kalpesh Carr Active HYDROCODONE-ACETAMINOPHEN 5-325 MG TABS 1 tab by mouth every 6 hours as needed HYDROCODONE-ACETAMINOPHEN 25770095199 No Longer Activ e Shola MCGILL Active CEPHALEXIN 500 MG CAPS 1 PO bid x 7 days CEPHAL EXIN 74821002354 No Longer Active Shola MCGILL Active BACTRIM DS 800-160 MG TAB 1 tab by mouth twice daily 2 TRIMETHOPRIM-SULFAMETHOXAZOLE 96968254953 No Longer Active Kalpesh Dong MD Active HYDROCODONE-ACETAMINOPHEN 5-325 MG TABS 1 PO tid PRN pain 5 HYDROCODONE-ACETAMINOPHEN 71257686718 No Longer Active Abhinav Galvan MD Active IMPLANON 68 MG IMPL IMPLANTED IN LEFT ARM ETONO GESTREL 86902509152 No Longer Active Hira Moser APRN Active AMOXICILLIN 500 MG TABS 2 tabs PO bid x 10 d AM OXICILLIN 26002658495 No Longer Active Kalpesh Dong MD Active LEVAQUIN 500 MG TABS 1 PO q day x 7 days LEVOFL OXACIN 77789135048 No Longer Active Shola MCGILL Active AMITRIPTYLINE HCL 25 MG TAB 1 tab by mouth daily 60 minutes before bedtime AMITRIPTYLINE HCL 97195800143 No Longer Active Shola MCGILL Active LORTAB 5 5-500 MG TABS 1/2 to 1 tablet by mouth go ry 6 hours as needed for pain HYDROCODONE-ACETAMINOPHEN 67058778365 No Longer Active Shola MCGILL Active CEPHALEXIN 500 MG TABS Take one by mouth four times daily, morning, noon, early evening and bedtime. CEPHALEXIN 88095191570 No Long er Active Hira Moser APRN Active TYLENOL/CODEINE #3 300-30 MG TAB 1-2 po q6hr PRN Pain ACETAMINOPHEN-CODEINE 44009097893 No Longer Active Edilberto Marino DO Active PRISTIQ 50 MG [id number] 1 po qd DESVENLAFAXI NE SUCCINATE 78643741159 No Longer Active Edilberto Marino DO Active PENICILLIN V POTASSIUM 500 MG TAB 1 four times a day 2 PENICILLIN V POTASSIUM 15031493274 No Longer Active Edilberto Marino DO Active DOXYCYCLINE HYCLATE 100 MG CAPS Take one (1) tablet by mouth twice a day DOXYCYCLINE HYCLATE 03860169561 No Longer Active Ronnie Galvan MD Active HYDROCODONE-ACETAMINOPHEN 5-325 MG TABS 1 po q 6hr PRN Pain 2011 HYDROCODONE-ACETAMINOPHEN 86098468463 No Longer Active Jerson Perez RN Active BACTRIM DS 800-160 MG TAB 1 tab by mouth twice daily 2 TRIMETHOPRIM-SULFAMETHOXAZOLE 06963170789 No Longer Active Kalpesh Dong MD Active LORTAB 5 5-500 MG TABS 1/2 to 1 tablet by mouth go ry 4 hours as needed for pain HYDROCODONE-ACETAMINOPHEN 76529393627 No Longer Active Kalpesh Dong MD Active GENERESS FE 0.8-25 MG-MCG CHEW Take one by mouth daily NORETHIN-ETH ESTRADIOL-FE 08384260400 No Longer Active Kalpesh Dong MD Active HYDROCODONE-ACETAMINOPHEN 7.5-500 MG TABS 1-2 every 4 hours as needed HYDROCODONE-ACETAMINOPHEN 29433382133 No Longer Activ e Kalpesh Dong MD Active FERROUS SULFATE 325 (65 FE) MG TABS 1 tablet by mouth twice yung y FERROUS SULFATE 04842263537 No Longer Active Kalpesh Dong MD Active IBUPROFEN 600 MG TAB 1 po q6-8hr PRN IBUPROFEN 65821402265 No Longer Active Kalpesh Dong MD Active SPIRONOLACTONE 25 MG TAB 1 tablet by mouth daily 01/22 SPIRONOLACTONE 46273005660 No Longer Active Kalpesh Dong MD Acti ve HYDROCODONE-ACETAMINOPHEN 7.5-325 MG TABS 1 po QID PRN Pain 2011 HYDROCODONE-ACETAMINOPHEN 97019901728 No Longer Active Kalpesh Dong MD Active CLINDAMYCIN HCL 300 MG CAPS 1 po q6hr x 7 days CLINDAMYCIN HCL 13709158352 No Longer Active Edilberto Marino DO Active PREDNISONE 20 MG TAB 2 tabs daily for 4 days, 1 t ab daily for 4 days, 1/2 tab daily for 4 days PREDNISONE 60880674534 No Longer Active Edilberto Marino DO Active PERCOCET 5-325 MG TABS 1 tablet by mouth every 6 hours as ne eded for pain OXYCODONE-ACETAMINOPHEN 87863224669 No Longer Active Abdirahman Rios MD Active VITAMINS TABS Take one by mouth daily MV & MIN W/FE-FA TABS 27745707639 No Longer Active Abdirahman Rios MD Active LUIS 3-0.02 MG TABS 1 tablet by mouth daily as directed DROSPIRENONE-ETHINYL ESTRADIOL 05658819913 No Longer Active Abdirahman Rios MD Active LORATADINE 10 MG TABS 1 tablet by mouth daily L ORATADINE 74597903311 No Longer Active Kalpesh Dong MD Active HYDROCODONE-ACETAMINOPHEN 5-325 MG TABS 1 po q 6hr PRN Pain 2010 HYDROCODONE-ACETAMINOPHEN 76745597653 No Longer Active Edilberto Marino DO Active BACTRIM DS 800-160 MG TAB 1 tab by mouth twice daily 2 TRIMETHOPRIM-SULFAMETHOXAZOLE 68350328346 No Longer Active Abdirahman Rios MD Active 28-0.8 MG TABS Take one by mouth daily 09/20 VIT-FE FUMARATE-FA 74919305775 No Longer Active Abdirahman Rios MD Active CIPRO 500 MG TAB 1 tablet by mouth twice daily CIPROFLOXACIN HCL 75023737289 No Longer Active Abdirahman Rios MD Active BENADRYL 25 MG CAP 1 po q8hr PRN Congestion DIPHENHYDRAMINE HCL 94850240445 No Longer Active Abdirahman Rios MD Active ZOLOFT 50 MG TAB 1 po qd SERTRALINE HCL 634257 77059 No Longer Active Abdirahman Rios MD Active AMOXICILLIN 875 MG TABS 1 tab by mouth twice daily 201 08/09/13 AMOXICILLIN 30583366614 No Longer Active Abdirahman Rios MD Activ e AMOXICILLIN 875 MG TABS 1 tab by mouth twice daily 201 07/19/27 AMOXICILLIN 09087353746 No Longer Active Abdirahman Rios MD Activ e BACTRIM DS 800-160 MG TAB 2 tab by mouth twice daily 2 TRIMETHOPRIM-SULFAMETHOXAZOLE 48390892591 No Longer Active Abdirahman Rios MD Active KEFLEX 500 MG CAP 1 po tid x 10 days CEPHALEXIN 89134289120 No Longer Active Abdirahman Rios MD Active AMOXICILLIN 875 MG TABS 1 tab by mouth twice daily 201 07/18/07 AMOXICILLIN 56251799738 No Longer Active Abdirahman Rios MD Activ e BACTRIM DS 800-160 MG TAB 2 tab by mouth twice daily 2 BACTRIM DS 800-160 MG TAB TRIMETHOPRIM-SULFAMETHOXAZOLE Inactive ZOLOFT 50 MG TAB 1 po qd ZOLOFT 50 MG TAB 3129 41 SERTRALINE HCL Inactive BENADRYL 25 MG CAP 1 po q8hr PRN Congestion BENADRYL 25 MG CAP 1558029 DIPHENHYDRAMINE HCL Inactive 28-0.8 MG TABS Take one by mouth daily 09/20 28-0.8 MG TABS VIT-FE FUMARATE-FA Inactive HYDROCODONE-ACETAMINOPHEN 5-325 MG TABS 1 po q 6hr PRN Pain 2010 HYDROCODONE-ACETAMINOPHEN 5-325 MG TABS 794193 HYDROCODONE-ACETAMINOPHEN Inactive LORATADINE 10 MG TABS 1 tablet by mouth daily LORATADINE 10 MG TABS 427347 LORATADINE Inactive LUIS 3-0.02 MG TABS 1 tablet by mouth daily as directed LUIS 3-0.02 MG TABS DROSPIRENONE-ETHINYL ESTRADIOL Inactive VITAMINS TABS Take one by mouth daily VITAMINS TABS MV & MIN W/FE-FA TABS Inactive PERCOCET 5-325 MG TABS 1 tablet by mouth every 6 hours as ne eded for pain PERCOCET 5-325 MG TABS 8163165 OXYCODONE-ACETAMIN OPHEN Inactive PREDNISONE 20 MG TAB 2 tabs daily for 4 days, 1 t ab daily for 4 days, 1/2 tab daily for 4 days PREDNISONE 20 MG TAB 232714 PREDNISON E Inactive CLINDAMYCIN HCL 300 MG CAPS 1 po q6hr x 7 days CLINDAMYCIN HCL 300 MG CAPS 792880 CLINDAMYCIN HCL Inactive HYDROCODONE-ACETAMINOPHEN 7.5-325 MG TABS 1 po QID PRN Pain 2011 HYDROCODONE-ACETAMINOPHEN 7.5-325 MG TABS 550551 HYDROCODONE-ACETAMINOPHEN Inactive SPIRONOLACTONE 25 MG TAB 1 tablet by mouth daily 01/22 SPIRONOLACTONE 25 MG TAB 229612 SPIRONOLACTONE Inactive IBUPROFEN 600 MG TAB 1 po q6-8hr PRN IBUPROFEN 600 MG TAB 271210 IBUPROFEN Inactive FERROUS SULFATE 325 (65 FE) MG TABS 1 tablet by mouth twice yung y FERROUS SULFATE 325 (65 FE) MG TABS 163964 FERROUS SULF ATE Inactive HYDROCODONE-ACETAMINOPHEN 7.5-500 MG TABS 1-2 every 4 hours as needed HYDROCODONE-ACETAMINOPHEN 7.5-500 MG TABS HYDROCODONE-ACETAMINOPHEN Inactive GENERESS FE 0.8-25 MG-MCG CHEW Take one by mouth daily GENERESS FE 0.8-25 MG-MCG CHEW 1383437 NORETHIN-ETH ESTRADIOL-FE Inactive LORTAB 5 5-500 MG [...] PRN Pain 2011 HYDROCODONE-ACETAMINOPHEN 5-325 MG TABS 487063 HYDROCODONE-ACETAMINOPHEN Inactive DOXYCYCLINE HYCLATE 100 MG CAPS Take one (1) tablet by mouth twice a day DOXYCYCLINE HYCLATE 100 MG CAPS 703649 DOXYCYCLINE HYCLATE Inactive PENICILLIN V POTASSIUM 500 MG TAB 1 four times a day 2 PENICILLIN V POTASSIUM 500 MG TAB 196667 PENICILLIN V POTASSIUM [place] ctive PRISTIQ 50 MG [id number] 1 po qd PRISTIQ 50 MG [id number] DESVENLAFAXINE SUCCINATE Inactive TYLENOL/CODEINE #3 300-30 MG TAB 1-2 po q6hr PRN Pain TYLENOL/CODEINE #3 300-30 MG TAB 966814 ACETAMINOPHEN-CODEINE Inact krishna CEPHALEXIN 500 MG TABS Take one by mouth four times daily, morning, noon, early evening and bedtime. CEPHALEXIN 500 MG TABS 938427 CEPHALEXIN Inactive LORTAB 5 5-500 MG TABS 1/2 to 1 tablet by mouth go ry 6 hours as needed for pain LORTAB 5 5-500 MG TABS HYDROCODONE-A CETAMINOPHEN Inactive AMITRIPTYLINE HCL 25 MG TAB 1 tab by mouth daily 60 minutes before bedtime AMITRIPTYLINE HCL 25 MG TAB 426286 AMITRIPTYLINE HCL Inactive AMOXICILLIN 500 MG TABS 2 tabs PO bid x 10 d 7 AMOXICILLIN 500 MG TABS 568857 AMOXICILLIN Inactive IMPLANON 68 MG IMPL IMPLANTED IN LEFT ARM IMPLANON 68 MG IMPL ETONOGESTREL Inactive HYDROCODONE-ACETAMINOPHEN 5-325 MG TABS 1 PO tid PRN pain 5 HYDROCODONE-ACETAMINOPHEN 5-325 MG TABS 337476 HYDROCODONE-ACETAMIN OPHEN Inactive BACTRIM DS 800-160 MG TAB 1 tab by mouth twice daily 2 BACTRIM DS 800-160 MG TAB TRIMETHOPRIM-SULFAMETHOXAZOLE Inac tive CEPHALEXIN 500 MG CAPS 1 PO bid x 7 days CEPHALEXIN 500 MG CAPS 001535 CEPHALEXIN Inactive HYDROCODONE-ACETAMINOPHEN 5-325 MG TABS 1 tab by mouth every 6 hours as needed HYDROCODONE-ACETAMINOPHEN 5-325 MG TABS 794054 HYDROCODONE-ACETAMINOPHEN Inactive PROMETHAZINE-CODEINE 6.25-10 MG/5ML SYRP 1 tsp every 6 hrs prn c ough PROMETHAZINE-CODEINE 6.25-10 MG/5ML SYRP 471236 PROMETH AZINE-CODEINE Inactive IBUPROFEN 800 MG TAB 1 pill three times daily as needed for pain IBUPROFEN 800 MG TAB 139017 IBUPROFEN Inactive KEFLEX 500 MG CAP 1 tab po tid KEFLEX 500 MG CAP 211448 CEPHALEXIN Inactive HYDROCODONE-ACETAMINOPHEN 7.5-325 MG TABS 1 four times a day as needed for pain HYDROCODONE-ACETAMINOPHEN 7.5-325 MG TABS 796309 HYDROCODONE-ACETAMINOPHEN Inactive BACTRIM DS 800-160 MG TABS by mouth twice a day 11/05 BACTRIM DS 800-160 MG TABS SULFAMETHOXAZOLE-TRIMETHOPRIM Inactive IBUPROFEN 800 MG TABS 1 tid prn IBUPROFEN 800 MG TABS 570786 IBUPROFEN Inactive ENDOCET 10-325 MG TABS 1 q 6 hr prn ENDOC ET 10-325 MG TABS 5935252 OXYCODONE-ACETAMINOPHEN Inactive HYDROCODONE-ACETAMINOPHEN 7.5-325 MG TABS 1 by mouth e very 6 hours as needed for pain HYDROCODONE-ACETAMINOPHEN 7.5-325 MG TABS 534158 HYDROCODONE-ACETAMINOPHEN Inactive PERCOCET 7.5-325 MG TABS 1 PO q 8 hrs PRN pain PERCOCET 7.5-325 MG TABS 5713413 OXYCODONE-ACETAMINOPHEN Inactive LIDODERM 5 % PTCH One patch to painful area [place] N. On for 12 hrs, off for 12 hrs. LIDODERM 5 % PTCH 7186705 LIDOCAINE Inactiv e PERCOCET 7.5-325 MG TABS 1 PO tid PRN pain PERCOCET 7.5- 325 MG TABS 2437379 OXYCODONE-ACETAMINOPHEN Inactive MOBIC 15 MG TABS 1 tab daily MOBIC 15 MG TABS 15 2695 MELOXICAM Inactive CYCLOBENZAPRINE HCL 10 MG TABS 1/2 - 1 tab PO tid PRN back p ain, muscle spasm CYCLOBENZAPRINE HCL 10 MG TABS 476444 CYCLOBENZA JOSEPH HCL Inactive LORATADINE 10 MG TABS 1 tablet by mouth daily LORATADINE 10 MG TABS 259335 LORATADINE Inactive HYDROCODONE-ACETAMINOPHEN 10-325 MG TABS 1 by mouth ev chaka 8 hours as needed for pain HYDROCODONE-ACETAMINOPHEN 10-325 MG TABS 368848 HYDROCODONE-ACETAMINOPHEN Inactive LC-5 LIDOCAINE 5 % CREA apply 1 time daily to affected area 2013 LC-5 LIDOCAINE 5 % CREA LIDOCAINE (ANORECTAL) In active PERCOCET 5-325 MG TAB 1 every 6 hours as needed PERCOCET 5-325 MG TAB 3723978 OXYCODONE-ACETAMINOPHEN Inactive KEFLEX 500 MG CAP 1 po qid KEFLEX 500 MG CAP 30 9114 CEPHALEXIN Inactive PROAIR HFA 108 (90 BASE) MCG/ACT AERS 2 puff q 4-6 hrs PRN 01/24 PROAIR HFA 108 (90 BASE) MCG/ACT AERS ALBUTEROL SULFATE Inactive PERCOCET 10-325 MG ORAL TABS 1 every 4 hours as needed PERCOCET 10-325 MG ORAL TABS 7052797 OXYCODONE-ACETAMINOPHEN Inactiv e EMLA 2.5-2.5 % EXT CREA apply to skin lesion q 6 hours, prn 2014 EMLA 2.5-2.5 % EXT CREA 383617 LIDOCAINE-PRILOCAINE [place] ctive AMOXICILLIN 875 MG TABS 1 tab by mouth twice daily 201 07/18/07 AMOXICILLIN 875 MG TABS 519952 AMOXICILLIN Inactive KEFLEX 500 MG CAP 1 po tid x 10 days KEFLEX 500 MG CAP 633999 CEPHALEXIN Inactive AMOXICILLIN 875 MG TABS 1 tab by mouth twice daily 201 07/19/27 AMOXICILLIN 875 MG TABS 255833 AMOXICILLIN Inactive AMOXICILLIN 875 MG TABS 1 tab by mouth twice daily 201 08/09/13 AMOXICILLIN 875 MG TABS 873395 AMOXICILLIN Inactive CIPRO 500 MG TAB 1 tablet by mouth twice daily CIPRO 500 MG TAB 265399 CIPROFLOXACIN HCL Inactive BACTRIM DS 800-160 MG TAB 1 tab by mouth twice daily 2 BACTRIM DS 800-160 MG TAB TRIMETHOPRIM-SULFAMETHOXAZOLE Inac tive LEVAQUIN 500 MG TABS 1 PO q day x 7 days LEVAQUIN 500 MG TABS 906894 LEVOFLOXACIN Inactive CLINDAMYCIN HCL 300 MG CAPS 1 po QID x 7 days CLINDAMYCIN HCL 300 MG CAPS 588222 CLINDAMYCIN HCL Inactive AUGMENTIN 875-125 MG TAB 1 tab by mouth twice daily with food 20 22/05/07 AUGMENTIN 875-125 MG TAB 085870 AMOXICILLIN-POT CLAVULA [place] Inactive DIFLUCAN 150 MG TAB 1 qODay x 2 doses DIFLUCAN 150 MG TAB 481158 FLUCONAZOLE Inactive PREDNISONE 20 MG TAB 2 tabs daily for 3 days, 1 t ab daily for 3 days, 1/2 tab daily for 2 days PREDNISONE 20 MG TAB 477973 PREDNISON E Inactive AUGMENTIN 875-125 MG TAB 1 tab by mouth twice daily with food 20 21/10/13 AUGMENTIN 875-125 MG TAB 142767 AMOXICILLIN-POT CLAVULA [place] Inactive Advance Directives Directive Description Start Date PERMISSION TO SHARE Immunizations Vaccine Administration Date Value Standard Alf cription Seasonal influenza vaccine, injectable, containing preservative, for > 3 years old (Afluria, FluLaval, Fluzone, Fluvirin, Fluarix, Agriflu(>= 18 yo)) Fluzone (>3 yrs.) [[id number]] Influenza, seasonal, inject able Seasonal influenza vaccine, injectable, preservative free, for > 3 years old (Afluria, FluLaval, Fluzone, Fluvirin, Fluarix, Agriflu(>= 18 yo)) Fluzone preservative free (>3 yrs.) [[id number]] Influenza, seasonal, injectable, preservative free Seasonal influenza vaccine, injectable, containing preservative, for > 3 years old (Afluria, FluLaval, Fluzone, Fluvirin, Fluarix, Agriflu(>= 18 yo)) Fluzone (>3 yrs.) [[id number]] Influenza, seasonal, inject able Seasonal influenza vaccine, injectable, containing preservative, for > 3 years old (Afluria, FluLaval, Fluzone, Fluvirin, Fluarix, Agriflu(>= 18 yo)) Fluzone (>3 yrs.) [[id number]] Influenza, seasonal, inject able dT (Diphtheria and [...] Panel - Chemistry sodium, serum 142 mmol/L 545-235 1344/05/12 potassium, serum 4.8 mmol/L 3.5-5.2 chloride, serum [...] Panel - Chemistry cholesterol, serum 165 mg/dL 070-790 1801/05/12 triglyceride, serum, fasting 524 mg/dL 30-200 HDL [...] negative Encounters Code Encounter Date Provider Facility CPT-70671 Level 2 Est. Patient 16:33:01 CDT Kalpesh goins MD [facility] CPT-85078 Level 4 Est. Patient 16:44:56 CDT Abdirahman Rios MD [facility] CPT-04349 Level 2 Est. Patient 07:49:32 CDT Kalpesh goins MD [facility] CPT-40471 Level 3 New Patient 15:47:11 NORMAN huber MD [facility]-03154 Level 4 Est. Patient 14:37:38 INCIDENT COMMANDER Abdirahman Rios MD [facility] CPT-84927 Level 2 Est. Patient 13:32:17 INCIDENT COMMANDER Kalpesh goins MD [facility]-86986 Level 3 Est. Patient 17:32:57 INCIDENT COMMANDER Edilberto tiwari DO [facility] CPT-72848 Level 3 Est. Patient 17:22:33 INCIDENT COMMANDER Edilberto tiwari [facility] CPT-07259 Level 2 Est. Patient 16:57:09 INCIDENT COMMANDER Kalpesh goins MD [facility]-80237 Level 3 Est. Patient 14:03:08 INCIDENT COMMANDER Abdirahman Rios MD [facility] CPT-59729 Level 3 Est. Patient 18:12:34 CDT Shola Wright [facility] CPT-49701 Level 3 Est. Patient 19:34:46 CDT Shola Wright [facility] CPT-92694 Level 3 Est. Patient 14:19:37 CDT Abdirahman Rios MD [facility] CPT-99068 Level 3 Est. Patient 14:11:58 CDT Kalpesh goins MD [facility]-21275 Level 3 Est. Patient 16:50:00 CDT Michelle MERCADO [facility] CPT-39883 Level 3 Est. Patient 17:11:32 INCIDENT COMMANDER Brandie bates MD PhD [facility]-34481 Level 3 Est. Patient 16:31:47 INCIDENT COMMANDER Shola Wright [facility]-76761 Level 3 Est. Patient 17:51:10 INCIDENT COMMANDER Abhinav Galvan MD [facility]-07218 Level 4 Est. Patient 12:54:56 INCIDENT COMMANDER Kalpesh gions MD [facility] CPT-70286 Level 4 Est. Patient 12:53:56 INCIDENT COMMANDER Kalpesh goins MD [facility] CPT-03277 Level 3 Est. Patient 17:56:58 CDT Shola Wright [facility] CPT-40084 Level 3 Est. Patient 14:26:20 CDT Janak butcher [facility] CPT-05690 Level 3 Est. Patient 09:38:41 CDT Shola Thao [facility] CPT-61869 Level 3 Est. Patient 14:45:26 CDT Edilberto tiwari [facility] CPT-97170 Level 3 Est. Patient 10:51:33 CDT Hira muniz [facility] CPT-97580 Level 3 Est. Patient 11:57:55 INCIDENT COMMANDER Shola Keesha Wright [facility] CPT-84195 Level 3 Est. Patient 09:53:33 INCIDENT COMMANDER Edilberto tiwari [facility] CPT-57610 Level 3 Est. Patient 14:42:54 INCIDENT COMMANDER Abhinav Galvan MD [facility] CPT-71377 Level 3 Est. Patient 15:10:02 CDT Janak butcher [facility] CPT-05219 Level 3 Est. Patient 15:20:20 CDT Theo dennis MD [facility] CPT-95446 Level 2 Est. Patient 14:08:57 CDT Kalpesh goins MD [facility] CPT-60605 Level 3 Est. Patient 13:56:19 CDT Abdirahman Rios MD [facility]-23737 Level 3 Est. Patient 13:59:37 CDT Abdirahman Rios MD [facility] CPT-95596 Level 2 Est. Patient 14:44:59 CDT Kalpesh goins MD [facility] CPT-30948 Level 3 Est. Patient 06:06:23 CDT Edilberto tiwari DO [facility] CPT-69084 Level 3 Est. Patient 15:23:54 CDT Abdirahman Rios MD [facility] CPT-61473 Level 3 Est. Patient 15:43:49 CDT Abdirahman Rios MD [facility] CPT-35471 Level 3 Est. Patient 12:46:47 INCIDENT COMMANDER Abdirahman Rios MD [facility] CPT-38620 Level 3 Est. Patient 08:13:35 INCIDENT COMMANDER Abdirahman Rios MD [facility] CPT-02680 Level 2 Est. Patient 09:36:42 INCIDENT COMMANDER Abdirahman Rios MD [facility] CPT-16395 Level 3 Est. Patient 10:56:43 CDT Abdirahman Rios MD [facility] CPT-01969 Level 3 Est. Patient 18:24:52 CDT Abdirahman Rios MD [facility] CPT-00558 Level 3 Est. Patient 13:27:22 CDT Abdirahman Rios MD [facility] Procedures Code Procedure Name Date Entry Date Standard Desc ription CPT-68997 Postop F/U Visit 14:40:59 CDT CPT-87336 Postop F/U Visit 15:02:46 CDT CPT-33748 Postop F/U Visit 11:29:00 INCIDENT COMMANDER CPT-J0696 Rocephin 1000 mg (Ceftriaxone) 17:22:33 INCIDENT COMMANDER CPT-02608 Postop F/U Visit 18:41:07 INCIDENT COMMANDER CPT-78208 Postop F/U Visit 08:19:08 INCIDENT COMMANDER CPT-86525 Immunization Single Admin 16:41:53 CDT 2013 CPT-90250 Fluzone Quadrivalent Intramuscular Suspe nsion 0.5 ML 16:41:53 CDT CPT-OV Office Visit 16:39:18 CDT CPT-OV Office Visit 16:16:36 CDT CPT-OV Office Visit 15:34:48 CDT CPT-52732 Postop F/U Visit 14:50:12 CDT CPT-69348 Postop F/U Visit 14:41:10 CDT CPT-24796 Venipuncture Draw Fee 11:38:04 INCIDENT COMMANDER CPT-88933 Postop F/U Visit 19:02:59 INCIDENT COMMANDER CPT-29185 Postop F/U Visit 12:04:54 INCIDENT COMMANDER CPT-39510 Administration single or combination vac cine inc oral 15:56:43 CDT CPT-01270 Influenza split virus > age 3 15:56:43 CDT CPT-54195 Hand comp min 3V 14:25:19 CDT CPT-65382 Postop F/U Visit 21:40:51 CDT CPT-67561 Postop F/U Visit 10:58:43 CDT CPT-06320 Administration single or combination vac cine inc oral 12:33:54 INCIDENT COMMANDER CPT-59177 Influenza Preservative Free split virus >age 3 12:33:54 INCIDENT COMMANDER CPT-65442 Administration single or combination vac cine inc oral 09:30:51 CDT CPT-16180 Influenza split virus > age 3 09:30:51 CDT CPT-39880 Postop F/U Visit 15:14:53 CDT CPT-36198 Postop F/U Visit 13:50:14 CDT CPT-93010 Postop F/U Visit 13:34:52 CDT CPT-OV Office Visit 16:55:03 CDT CPT-07656 Fenton of cervix w bx ECC 13:32:50 CDT 10/19 CPT-J1885 Toradol 60 mg (Ketorolac) 15:31:59 CDT 2011 CPT-J1885 Toradol 60 mg (Ketorolac) 15:23:54 CDT 2011 CPT-77899 Visit 11:34:37 INCIDENT COMMANDER CPT-01597 Visit 10:52:39 INCIDENT COMMANDER CPT-38022 Visit 10:12:02 INCIDENT COMMANDER CPT-96420 Visit 11:22:43 INCIDENT COMMANDER CPT-42071 Visit 11:24:12 INCIDENT COMMANDER CPT-55498 Visit 10:47:05 INCIDENT COMMANDER CPT-OV Office Visit 10:26:16 INCIDENT COMMANDER CPT-OV Office Visit 15:34:31 INCIDENT COMMANDER CPT-28450 Visit 10:42:08 INCIDENT COMMANDER CPT-48761 Visit 10:52:45 INCIDENT COMMANDER CPT-000 Give Appropriate Flu Vaccine 16:56:41 CDT 2 CPT-72766 Administration single or combination vac cine inc oral 10:33:21 CDT CPT-74873 Influenza split virus > age 3 10:33:21 CDT CPT-09009 Visit 13:23:09 CDT CPT-27961 Visit 18:24:52 CDT CPT-91668 Sono OB comp > 14 weeks 12:07:49 CDT 04/07
--- OUTSIDE RECORDS SUMMARY | 2020-01-18 16:25 | XMS REPORT | Clinical Summary ---
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 Abscess of anal and rectal regions [...] Abdirahman Rios MD VAGINAL DISCHARGE ICD-623.5 Inactive Abdirahmna sanchez MD URETHRITIS ICD-597.80 Inactive Good melchor [...] , use sparingly for severe pain OXYCODONE-ACETAMINOPHEN 62490227106 No Longer A ctive Abdirahman Riso MD Active GLUCOPHAGE 500 MG ORAL TABS one by mouth 3 times a day METFORMIN HCL 34723041943 Active Kalpesh Dong MD Active IBUPROFEN 600 MG ORAL TABS 1 by mouth twice a day IBUPROFEN 31563184987 Active ERNIE Higuera Active TRAZODONE HCL 100 MG TAB 0.5 to 1 po qHS PRN Insomnia TRAZODONE HCL 48254443501 Active Abdirahman Rios MD Active CYMBALTA 30 MG CPEP 1 cap by mouth daily DULOXE CLEO HCL 51141048501 Active Abdirahman Rios MD Active EMLA 2.5-2.5 % EXT CREA apply to skin lesion q 6 hours, prn 2014 LIDOCAINE-PRILOCAINE 29429123367 No Longer Active Abdirahman Rios MD Active HYDROCODONE-ACETAMINOPHEN 5-325 MG TABS 1 po q6hr PRN pain HYDROCODONE-ACETAMINOPHEN 18905963937 Active Abdirahman Rios MD Active PERCOCET 10-325 MG ORAL TABS 1 every 4 hours as needed OXYCODONE-ACETAMINOPHEN 27206293974 No Longer Active Abidrahman Rios MD Active [id number] 50-325-40 MG ORAL CAPS 1-2 po TID MA N Headache [id number] 31804359509 Active Abdirahman Rios MD Active AUGMENTIN 875-125 MG TAB 1 tab by mouth twice daily with food 20 21/10/13 AMOXICILLIN-POT CLAVULANATE 57437604131 No Longer Active Ursula jasmina Frajalenl FARM EQUIPMENT OPERATOR Active PROAIR HFA 108 (90 BASE) MCG/ACT AERS 2 puff q 4-6 hrs PRN 01/24 ALBUTEROL SULFATE 90882918919 No Longer Active Kalpesh Dong MD Active ALPRAZOLAM 0.5 MG TABS 1 po BID PRN Anxiety ALPRA ZOLAM 54296124618 Active Abdirahman Rios MD Active CYCLOBENZAPRINE HCL 10 MG TABS 1 tablet by mouth three times daily as needed for muscle spasm/pain CYCLOBENZAPRINE HCL 74337191651 Active Abdiarhman Rios MD Active PREDNISONE 20 MG TAB 2 tabs daily for 3 days, 1 t ab daily for 3 days, 1/2 tab daily for 2 days PREDNISONE 41966667715 No Longer Active Abdirahman Rios MD Active KEFLEX 500 MG CAP 1 po qid CEPHALEXIN 631138830 20 No Longer Active Kalpesh Dong MD Active PERCOCET 5-325 MG TAB 1 every 6 hours as needed OXYCODONE-ACETAMINOPHEN 73263671344 No Longer Active Shola MCGILL Active LC-5 LIDOCAINE 5 % CREA apply 1 time daily to affected area 2013 LIDOCAINE (ANORECTAL) 26473020704 No Longer Active Hira garciaell FARM EQUIPMENT OPERATOR Active HYDROCODONE-ACETAMINOPHEN 10-325 MG TABS 1 by mouth ev chaka 8 hours as needed for pain HYDROCODONE-ACETAMINOPHEN 98553027713 No Longer Active Jillina Frazell FARM EQUIPMENT OPERATOR Active LORATADINE 10 MG TABS 1 tablet by mouth daily L ORATADINE 53651010689 No Longer Active Jillina Frazell FARM EQUIPMENT OPERATOR Active DIFLUCAN 150 MG TAB 1 qODay x 2 doses FLUCONAZO LE 16306496340 No Longer Active Jillina Joyzell FARM EQUIPMENT OPERATOR Active CYCLOBENZAPRINE HCL 10 MG TABS 1/2 - 1 tab PO tid PRN back p ain, muscle spasm CYCLOBENZAPRINE HCL 89561419176 No Longer Active Karen herson Frazell FARM EQUIPMENT OPERATOR Active AUGMENTIN 875-125 MG TAB 1 tab by mouth twice daily with food 20 22/05/07 AMOXICILLIN-POT CLAVULANATE 99293507315 No Longer Active Loida Rios MD Active MOBIC 15 MG TABS 1 tab daily MELOXICAM 111415487 14 No Longer Active Abdirahman Rios MD Active PERCOCET 7.5-325 MG TABS 1 PO tid PRN pain OXYCODONE-ACETAMINOPHEN 59841616867 No Longer Active Abdirahman Rios MD Active LIDODERM 5 % PTCH One patch to painful area MA N. On for 12 hrs, off for 12 hrs. LIDOCAINE 15092829341 No Longer Active Abdirahman Rios MD Active PERCOCET 7.5-325 MG TABS 1 PO q 8 hrs PRN pain OXYCODONE-ACETAMINOPHEN 69982869942 No Longer Active Shola MCGILL Active HYDROCODONE-ACETAMINOPHEN 7.5-325 MG TABS 1 by mouth e very 6 hours as needed for pain HYDROCODONE-ACETAMINOPHEN 83333928992 No Longer Active Good Julian MD Active CLINDAMYCIN HCL 300 MG CAPS 1 po QID x 7 days CLINDAMYCIN HCL 45357622849 No Longer Active Abdirahman Rios MD Activ e BACTRIM DS 800-160 MG TABS 1 po BID x 7 days 5 SULFAMETHOXAZOLE-TRIMETHOPRIM 85047492714 No Longer Active Abdirahman Rios MD Active ENDOCET 10-325 MG TABS 1 q 6 hr prn OXYCODONE-ACETAMINOPHEN 74053981421 No Longer Active Abdirahman Rios MD Active IBUPROFEN 800 MG TABS 1 tid prn IBUPROFEN 059352 83392 No Longer Active Abdirahman Rios MD Active BACTRIM DS 800-160 MG TABS by mouth twice a day 11/05 SULFAMETHOXAZOLE-TRIMETHOPRIM 69324621386 No Longer Active Good Julian MD Active HYDROCODONE-ACETAMINOPHEN 7.5-325 MG TABS 1 four times a day as needed for pain HYDROCODONE-ACETAMINOPHEN 94962777591 No Longer Activ e Good Julian MD Active KEFLEX 500 MG CAP 1 tab po tid CEPHALEXIN 524994 47326 No Longer Active Matthewllherson Moser APRN Active IBUPROFEN 800 MG TAB 1 pill three times daily as needed for pain IBUPROFEN 57568426220 No Longer Active Kalpesh Dong MD Active PROMETHAZINE-CODEINE 6.25-10 MG/5ML SYRP 1 tsp every 6 hrs prn c ough PROMETHAZINE-CODEINE 23585321788 No Longer Active Kalpesh Carr Active HYDROCODONE-ACETAMINOPHEN 5-325 MG TABS 1 tab by mouth every 6 hours as needed HYDROCODONE-ACETAMINOPHEN 88721189774 No Longer Activ e Shola MCGILL Active CEPHALEXIN 500 MG CAPS 1 PO bid x 7 days CEPHAL EXIN 22063826275 No Longer Active Shola MCGILL Active BACTRIM DS 800-160 MG TAB 1 tab by mouth twice daily 2 TRIMETHOPRIM-SULFAMETHOXAZOLE 65702407752 No Longer Active Kalpesh Dong MD Active HYDROCODONE-ACETAMINOPHEN 5-325 MG TABS 1 PO tid PRN pain 5 HYDROCODONE-ACETAMINOPHEN 09291211954 No Longer Active Abhinav Galvan MD Active IMPLANON 68 MG IMPL IMPLANTED IN LEFT ARM ETONO GESTREL 89985669896 No Longer Active Hira Moser APRN Active AMOXICILLIN 500 MG TABS 2 tabs PO bid x 10 d AM OXICILLIN 80448820378 No Longer Active Kalpesh Dong MD Active LEVAQUIN 500 MG TABS 1 PO q day x 7 days LEVOFL OXACIN 24031203545 No Longer Active Shola MCGILL Active AMITRIPTYLINE HCL 25 MG TAB 1 tab by mouth daily 60 minutes before bedtime AMITRIPTYLINE HCL 60163474626 No Longer Active Shola MCGILL Active LORTAB 5 5-500 MG TABS 1/2 to 1 tablet by mouth go ry 6 hours as needed for pain HYDROCODONE-ACETAMINOPHEN 37633272598 No Longer Active Shola MCGILL Active CEPHALEXIN 500 MG TABS Take one by mouth four times daily, morning, noon, early evening and bedtime. CEPHALEXIN 17431316923 No Long er Active Hira Moser APRN Active TYLENOL/CODEINE #3 300-30 MG TAB 1-2 po q6hr PRN Pain ACETAMINOPHEN-CODEINE 14349227340 No Longer Active Edilberto Marino DO Active PRISTIQ 50 MG [id number] 1 po qd DESVENLAFAXI NE SUCCINATE 21896152869 No Longer Active Edilberto Marino DO Active PENICILLIN V POTASSIUM 500 MG TAB 1 four times a day 2 PENICILLIN V POTASSIUM 88928311169 No Longer Active Edilberto Marino DO Active DOXYCYCLINE HYCLATE 100 MG CAPS Take one (1) tablet by mouth twice a day DOXYCYCLINE HYCLATE 85877213124 No Longer Active Ronnie Galvan MD Active HYDROCODONE-ACETAMINOPHEN 5-325 MG TABS 1 po q 6hr PRN Pain 2011 HYDROCODONE-ACETAMINOPHEN 74201923386 No Longer Active Rosari joan Perez RN Active BACTRIM DS 800-160 MG TAB 1 tab by mouth twice daily 2 TRIMETHOPRIM-SULFAMETHOXAZOLE 33905293575 No Longer Active Kalpesh Dong MD Active LORTAB 5 5-500 MG TABS 1/2 to 1 tablet by mouth go ry 4 hours as needed for pain HYDROCODONE-ACETAMINOPHEN 08490360599 No Longer Active Kalpesh Dong MD Active GENERESS FE 0.8-25 MG-MCG CHEW Take one by mouth daily NORETHIN-ETH ESTRADIOL-FE 00573078111 No Longer Active Kalpesh Dong MD Active HYDROCODONE-ACETAMINOPHEN 7.5-500 MG TABS 1-2 every 4 hours as needed HYDROCODONE-ACETAMINOPHEN 96587642755 No Longer Activ e Kalpesh Dong MD Active FERROUS SULFATE 325 (65 FE) MG TABS 1 tablet by mouth twice yung y FERROUS SULFATE 62284566456 No Longer Active Kalpesh Dong MD Active IBUPROFEN 600 MG TAB 1 po q6-8hr PRN IBUPROFEN 87504666938 No Longer Active Kalpesh Dong MD Active SPIRONOLACTONE 25 MG TAB 1 tablet by mouth daily 01/22 SPIRONOLACTONE 15420302385 No Longer Active Kalpesh Dong MD Acti ve HYDROCODONE-ACETAMINOPHEN 7.5-325 MG TABS 1 po QID PRN Pain 2011 HYDROCODONE-ACETAMINOPHEN 98524567677 No Longer Active Kalpesh Dong MD Active CLINDAMYCIN HCL 300 MG CAPS 1 po q6hr x 7 days CLINDAMYCIN HCL 25013923112 No Longer Active Edilberto Marino DO Active PREDNISONE 20 MG TAB 2 tabs daily for 4 days, 1 t ab daily for 4 days, 1/2 tab daily for 4 days PREDNISONE 77634689962 No Longer Active Edilberto Marino DO Active PERCOCET 5-325 MG TABS 1 tablet by mouth every 6 hours as ne eded for pain OXYCODONE-ACETAMINOPHEN 58935724648 No Longer Active Abdirahman Rios MD Active VITAMINS TABS Take one by mouth daily MV & MIN W/FE-FA TABS 82554343392 No Longer Active Abdirahman Rios MD Active LUIS 3-0.02 MG TABS 1 tablet by mouth daily as directed DROSPIRENONE-ETHINYL ESTRADIOL 20199209915 No Longer Active Abdirahman Rios MD Active LORATADINE 10 MG TABS 1 tablet by mouth daily L ORATADINE 51330359952 No Longer Active Kalpesh Dong MD Active HYDROCODONE-ACETAMINOPHEN 5-325 MG TABS 1 po q 6hr PRN Pain 2010 HYDROCODONE-ACETAMINOPHEN 36582013721 No Longer Active Edilberto Marino DO Active BACTRIM DS 800-160 MG TAB 1 tab by mouth twice daily 2 TRIMETHOPRIM-SULFAMETHOXAZOLE 54777531489 No Longer Active Abdirahman Rios MD Active 28-0.8 MG TABS Take one by mouth daily 09/20 VIT-FE FUMARATE-FA 04131268511 No Longer Active Abdirahman Rios MD Active CIPRO 500 MG TAB 1 tablet by mouth twice daily CIPROFLOXACIN HCL 02960796517 No Longer Active Abdirahman Rios MD Active BENADRYL 25 MG CAP 1 po q8hr PRN Congestion DIPHENHYDRAMINE HCL 71502820093 No Longer Active Abdirahman Rios MD Active ZOLOFT 50 MG TAB 1 po qd SERTRALINE HCL 140526 77929 No Longer Active Abdirahman Rios MD Active AMOXICILLIN 875 MG TABS 1 tab by mouth twice daily 201 08/09/13 AMOXICILLIN 15941020139 No Longer Active Abdirahman Rios MD Activ e AMOXICILLIN 875 MG TABS 1 tab by mouth twice daily 201 07/19/27 AMOXICILLIN 36751736069 No Longer Active Abdirahman Rios MD Activ e BACTRIM DS 800-160 MG TAB 2 tab by mouth twice daily 2 TRIMETHOPRIM-SULFAMETHOXAZOLE 01951418863 No Longer Active Abdirahman Rios MD Active KEFLEX 500 MG CAP 1 po tid x 10 days CEPHALEXIN 24452822115 No Longer Active Abdirahman Rios MD Active AMOXICILLIN 875 MG TABS 1 tab by mouth twice daily 201 07/18/07 AMOXICILLIN 62725772354 No Longer Active Abdirahman Rios MD Activ e BACTRIM DS 800-160 MG TAB 2 tab by mouth twice daily 2 BACTRIM DS 800-160 MG TAB TRIMETHOPRIM-SULFAMETHOXAZOLE Inactive ZOLOFT 50 MG TAB 1 po qd ZOLOFT 50 MG TAB 3129 41 SERTRALINE HCL Inactive BENADRYL 25 MG CAP 1 po q8hr PRN Congestion BENADRYL 25 MG CAP 6369584 DIPHENHYDRAMINE HCL Inactive 28-0.8 MG TABS Take one by mouth daily 09/20 28-0.8 MG TABS VIT-FE FUMARATE-FA Inactive HYDROCODONE-ACETAMINOPHEN 5-325 MG TABS 1 po q 6hr PRN Pain 2010 HYDROCODONE-ACETAMINOPHEN 5-325 MG TABS 331787 HYDROCODONE-ACETAMINOPHEN Inactive LORATADINE 10 MG TABS 1 tablet by mouth daily LORATADINE 10 MG TABS 411439 LORATADINE Inactive LUIS 3-0.02 MG TABS 1 tablet by mouth daily as directed LUIS 3-0.02 MG TABS DROSPIRENONE-ETHINYL ESTRADIOL Inactive VITAMINS TABS Take one by mouth daily VITAMINS TABS MV & MIN W/FE-FA TABS Inactive PERCOCET 5-325 MG TABS 1 tablet by mouth every 6 hours as ne eded for pain PERCOCET 5-325 MG TABS 4741200 OXYCODONE-ACETAMIN OPHEN Inactive PREDNISONE 20 MG TAB 2 tabs daily for 4 days, 1 t ab daily for 4 days, 1/2 tab daily for 4 days PREDNISONE 20 MG TAB 570026 PREDNISON E Inactive CLINDAMYCIN HCL 300 MG CAPS 1 po q6hr x 7 days CLINDAMYCIN HCL 300 MG CAPS 413117 CLINDAMYCIN HCL Inactive HYDROCODONE-ACETAMINOPHEN 7.5-325 MG TABS 1 po QID PRN Pain 2011 HYDROCODONE-ACETAMINOPHEN 7.5-325 MG TABS 042168 HYDROCODONE-ACETAMINOPHEN Inactive SPIRONOLACTONE 25 MG TAB 1 tablet by mouth daily 01/22 SPIRONOLACTONE 25 MG TAB 312595 SPIRONOLACTONE Inactive IBUPROFEN 600 MG TAB 1 po q6-8hr PRN IBUPROFEN 600 MG TAB 693454 IBUPROFEN Inactive FERROUS SULFATE 325 (65 FE) MG TABS 1 tablet by mouth twice yung y FERROUS SULFATE 325 (65 FE) MG TABS 655938 FERROUS SULF ATE Inactive HYDROCODONE-ACETAMINOPHEN 7.5-500 MG TABS 1-2 every 4 hours as needed HYDROCODONE-ACETAMINOPHEN 7.5-500 MG TABS HYDROCODONE-ACETAMINOPHEN Inactive GENERESS FE 0.8-25 MG-MCG CHEW Take one by mouth daily GENERESS FE 0.8-25 MG-MCG CHEW 7364944 NORETHIN-ETH ESTRADIOL-FE Inactive LORTAB 5 5-500 MG [...] PRN Pain 2011 HYDROCODONE-ACETAMINOPHEN 5-325 MG TABS 780919 HYDROCODONE-ACETAMINOPHEN Inactive DOXYCYCLINE HYCLATE 100 MG CAPS Take one (1) tablet by mouth twice a day DOXYCYCLINE HYCLATE 100 MG CAPS 2630285 DOXYCYCLINE HYCLATE Inactive PENICILLIN V POTASSIUM 500 MG TAB 1 four times a day 2 PENICILLIN V POTASSIUM 500 MG TAB 634483 PENICILLIN V POTASSIUM [place] ctive PRISTIQ 50 MG [id number] 1 po qd PRISTIQ 50 MG [id number] DESVENLAFAXINE SUCCINATE Inactive TYLENOL/CODEINE #3 300-30 MG TAB 1-2 po q6hr PRN Pain TYLENOL/CODEINE #3 300-30 MG TAB 609982 ACETAMINOPHEN-CODEINE Inact krishna CEPHALEXIN 500 MG TABS Take one by mouth four times daily, morning, noon, early evening and bedtime. CEPHALEXIN 500 MG TABS 823684 CEPHALEXIN Inactive LORTAB 5 5-500 MG TABS 1/2 to 1 tablet by mouth go ry 6 hours as needed for pain LORTAB 5 5-500 MG TABS HYDROCODONE-A CETAMINOPHEN Inactive AMITRIPTYLINE HCL 25 MG TAB 1 tab by mouth daily 60 minutes before bedtime AMITRIPTYLINE HCL 25 MG TAB 002202 AMITRIPTYLINE HCL Inactive AMOXICILLIN 500 MG TABS 2 tabs PO bid x 10 d 7 AMOXICILLIN 500 MG TABS 226819 AMOXICILLIN Inactive IMPLANON 68 MG IMPL IMPLANTED IN LEFT ARM IMPLANON 68 MG IMPL ETONOGESTREL Inactive HYDROCODONE-ACETAMINOPHEN 5-325 MG TABS 1 PO tid PRN pain 5 HYDROCODONE-ACETAMINOPHEN 5-325 MG TABS 105010 HYDROCODONE-ACETAMIN OPHEN Inactive BACTRIM DS 800-160 MG TAB 1 tab by mouth twice daily 2 BACTRIM DS 800-160 MG TAB TRIMETHOPRIM-SULFAMETHOXAZOLE Inac tive CEPHALEXIN 500 MG CAPS 1 PO bid x 7 days CEPHALEXIN 500 MG CAPS 573573 CEPHALEXIN Inactive HYDROCODONE-ACETAMINOPHEN 5-325 MG TABS 1 tab by mouth every 6 hours as needed HYDROCODONE-ACETAMINOPHEN 5-325 MG TABS 960967 HYDROCODONE-ACETAMINOPHEN Inactive PROMETHAZINE-CODEINE 6.25-10 MG/5ML SYRP 1 tsp every 6 hrs prn c ough PROMETHAZINE-CODEINE 6.25-10 MG/5ML SYRP 824719 PROMETH AZINE-CODEINE Inactive IBUPROFEN 800 MG TAB 1 pill three times daily as needed for pain IBUPROFEN 800 MG TAB IBUPROFEN Inactive KEFLEX 500 MG CAP 1 tab po tid KEFLEX 500 MG CAP 776672 CEPHALEXIN Inactive HYDROCODONE-ACETAMINOPHEN 7.5-325 MG TABS 1 four times a day as needed for pain HYDROCODONE-ACETAMINOPHEN 7.5-325 MG TABS 220492 HYDROCODONE-ACETAMINOPHEN Inactive BACTRIM DS 800-160 MG TABS by mouth twice a day 11/05 BACTRIM DS 800-160 MG TABS SULFAMETHOXAZOLE-TRIMETHOPRIM Inactive IBUPROFEN 800 MG TABS 1 tid prn IBUPROFEN 800 MG TABS 386336 IBUPROFEN Inactive ENDOCET 10-325 MG TABS 1 q 6 hr prn ENDOC ET 10-325 MG TABS 4134189 OXYCODONE-ACETAMINOPHEN Inactive HYDROCODONE-ACETAMINOPHEN 7.5-325 MG TABS 1 by mouth e very 6 hours as needed for pain HYDROCODONE-ACETAMINOPHEN 7.5-325 MG TABS 809786 HYDROCODONE-ACETAMINOPHEN Inactive PERCOCET 7.5-325 MG TABS 1 PO q 8 hrs PRN pain PERCOCET 7.5-325 MG TABS 3399985 OXYCODONE-ACETAMINOPHEN Inactive LIDODERM 5 % PTCH One patch to painful area MA N. On for 12 hrs, off for 12 hrs. LIDODERM 5 % PTCH 1770807 LIDOCAINE Inactiv e PERCOCET 7.5-325 MG TABS 1 PO tid PRN pain PERCOCET 7.5- 325 MG TABS 3336613 OXYCODONE-ACETAMINOPHEN Inactive MOBIC 15 MG TABS 1 tab daily MOBIC 15 MG TABS 15 2695 MELOXICAM Inactive CYCLOBENZAPRINE HCL 10 MG TABS 1/2 - 1 tab PO tid PRN back p ain, muscle spasm CYCLOBENZAPRINE HCL 10 MG TABS 838702 CYCLOBENZA JOSEPH HCL Inactive LORATADINE 10 MG TABS 1 tablet by mouth daily LORATADINE 10 MG TABS 206868 LORATADINE Inactive HYDROCODONE-ACETAMINOPHEN 10-325 MG TABS 1 by mouth ev chaka 8 hours as needed for pain HYDROCODONE-ACETAMINOPHEN 10-325 MG TABS 499677 HYDROCODONE-ACETAMINOPHEN Inactive LC-5 LIDOCAINE 5 % CREA apply 1 time daily to affected area 2013 LC-5 LIDOCAINE 5 % CREA LIDOCAINE (ANORECTAL) In active PERCOCET 5-325 MG TAB 1 every 6 hours as needed PERCOCET 5-325 MG TAB 1725860 OXYCODONE-ACETAMINOPHEN Inactive KEFLEX 500 MG CAP 1 po qid KEFLEX 500 MG CAP 30 9114 CEPHALEXIN Inactive PROAIR HFA 108 (90 BASE) MCG/ACT AERS 2 puff q 4-6 hrs PRN 01/24 PROAIR HFA 108 (90 BASE) MCG/ACT AERS ALBUTEROL SULFATE Inactive PERCOCET 10-325 MG ORAL TABS 1 every 4 hours as needed PERCOCET 10-325 MG ORAL TABS 1327356 OXYCODONE-ACETAMINOPHEN Inactiv e EMLA 2.5-2.5 % EXT CREA apply to skin lesion q 6 hours, prn 2014 EMLA 2.5-2.5 % EXT CREA 250972 LIDOCAINE-PRILOCAINE [place] ctive PERCOCET 10-325 MG TABS 1 tab by mouth every 6 hours , use sparingly for severe pain PERCOCET 10-325 MG TABS 9923751 OXYCODONE-ACETAMINOPHEN Inactive AMOXICILLIN 875 MG TABS 1 tab by mouth twice daily 201 07/18/07 AMOXICILLIN 875 MG TABS 557504 AMOXICILLIN Inactive KEFLEX 500 MG CAP 1 po tid x 10 days KEFLEX 500 MG CAP 658052 CEPHALEXIN Inactive AMOXICILLIN 875 MG TABS 1 tab by mouth twice daily 201 07/19/27 AMOXICILLIN 875 MG TABS 764738 AMOXICILLIN Inactive AMOXICILLIN 875 MG TABS 1 tab by mouth twice daily 201 08/09/13 AMOXICILLIN 875 MG TABS 098322 AMOXICILLIN Inactive CIPRO 500 MG TAB 1 tablet by mouth twice daily CIPRO 500 MG TAB 491488 CIPROFLOXACIN HCL Inactive BACTRIM DS 800-160 MG TAB 1 tab by mouth twice daily 2 BACTRIM DS 800-160 MG TAB TRIMETHOPRIM-SULFAMETHOXAZOLE Inac tive LEVAQUIN 500 MG TABS 1 PO q day x 7 days LEVAQUIN 500 MG TABS 702640 LEVOFLOXACIN Inactive CLINDAMYCIN HCL 300 MG CAPS 1 po QID x 7 days CLINDAMYCIN HCL 300 MG CAPS 749235 CLINDAMYCIN HCL Inactive AUGMENTIN 875-125 MG TAB 1 tab by mouth twice daily with food 20 22/05/07 AUGMENTIN 875-125 MG TAB 179838 AMOXICILLIN-POT CLAVULA [place] Inactive DIFLUCAN 150 MG TAB 1 qODay x 2 doses DIFLUCAN 150 MG TAB 366008 FLUCONAZOLE Inactive PREDNISONE 20 MG TAB 2 tabs daily for 3 days, 1 t ab daily for 3 days, 1/2 tab daily for 2 days PREDNISONE 20 MG TAB 729906 PREDNISON E Inactive AUGMENTIN 875-125 MG TAB 1 tab by mouth twice daily with food 20 21/10/13 AUGMENTIN 875-125 MG TAB 434254 AMOXICILLIN-POT CLAVULA [place] Inactive Advance Directives Directive Description Start Date PERMISSION TO SHARE Immunizations Vaccine Administration Date Value Standard Alf cription Seasonal influenza vaccine, injectable, containing preservative, for > 3 years old (Afluria, FluLaval, Fluzone, Fluvirin, Fluarix, Agriflu(>= 18 yo)) Fluzone (>3 yrs.) [[id number]] Influenza, seasonal, inject able Seasonal influenza vaccine, injectable, preservative free, for > 3 years old (Afluria, FluLaval, Fluzone, Fluvirin, Fluarix, Agriflu(>= 18 yo)) Fluzone preservative free (>3 yrs.) [[id number]] Influenza, seasonal, injectable, preservative free Seasonal influenza vaccine, injectable, containing preservative, for > 3 years old (Afluria, FluLaval, Fluzone, Fluvirin, Fluarix, Agriflu(>= 18 yo)) Fluzone (>3 yrs.) [[id number]] Influenza, seasonal, inject able Seasonal influenza vaccine, injectable, containing preservative, for > 3 years old (Afluria, FluLaval, Fluzone, Fluvirin, Fluarix, Agriflu(>= 18 yo)) Fluzone (>3 yrs.) [[id number]] Influenza, seasonal, inject able dT (Diphtheria and [...] Panel - Chemistry sodium, serum 142 mmol/L 560-417 3449/05/12 potassium, serum 4.8 mmol/L 3.5-5.2 chloride, serum [...] Panel - Chemistry cholesterol, serum 165 mg/dL 220-407 1505/05/12 triglyceride, serum, fasting 524 mg/dL 30-200 HDL [...] negative Encounters Code Encounter Date Provider Facility CPT-37934 Level 2 Est. Patient 16:33:01 CDT Kalpesh goins MD [facility] CPT-19108 Level 4 Est. Patient 16:44:56 CDT Abdirahman Rios MD [facility] CPT-31916 Level 2 Est. 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 Patient 14:37:38 MOBILE SALES EXPERT Abdirahman Rios MD [facility] CPT-95673 Level 2 Est. Patient 13:32:17 MOBILE SALES EXPERT Kalpesh goins MD [facility] CPT-29500 Level 3 Est. Patient 17:32:57 MOBILE SALES EXPERT Edilberto tiwari [facility] CPT-20723 Level 3 Est. Patient 17:22:33 MOBILE SALES EXPERT Edilberto tiwari [facility] CPT-42945 Level 2 Est. Patient 16:57:09 MOBILE SALES EXPERT Kalpesh goins MD [facility]-98656 Level 3 Est. Patient 14:03:08 MOBILE SALES EXPERT Abdirahman Rios MD [facility] CPT-78139 Level 3 Est. Patient 18:12:34 CDT Shola Wright [facility] CPT-39058 Level 3 Est. Patient 19:34:46 CDT Shola Wright [facility] CPT-26268 Level 3 Est. Patient 14:19:37 CDT Abdirahman Rios MD [facility] CPT-61935 Level 3 Est. Patient 14:11:58 CDT Kalpesh goins MD [facility]-18913 Level 3 Est. Patient 16:50:00 CDT [facility] Level 3 Est. Patient 17:11:32 MOBILE SALES EXPERT Brandie bates MD PhD [facility]-[id number] Level 3 Est. Patient 16:31:47 MOBILE SALES EXPERT Shola Wright [facility] CPT-28196 Level 3 Est. Patient 17:51:10 MOBILE SALES EXPERT Abhinav Galvan MD [facility] CPT-14134 Level 4 Est. Patient 12:54:56 MOBILE SALES EXPERT Kalpesh goins MD [facility]-81460 Level 4 Est. Patient 12:53:56 MOBILE SALES EXPERT Kalpesh goins MD [facility]-85451 Level 3 Est. Patient 17:56:58 CDT Shola Wright [facility] CPT-31087 Level 3 Est. Patient 14:26:20 CDT Janak butcher [facility] CPT-28548 Level 3 Est. Patient 09:38:41 CDT Shola Wright [facility] CPT-99861 Level 3 Est. Patient 14:45:26 CDT Edilberto tiwari DO [facility] CPT-11176 Level 3 Est. Patient 10:51:33 [facility] Est. Patient 11:57:55 MOBILE SALES EXPERT Shola MCGILL [facility] CPT-47569 Level 3 Est. Patient 09:53:33 MOBILE SALES EXPERT Edilberto tiwari [facility] CPT-24932 Level 3 Est. Patient 14:42:54 MOBILE SALES EXPERT Abhinav Galvan MD [facility] CPT-09462 Level 3 Est. Patient 15:10:02 CDT [facility]50 Level 3 Est. Patient 15:20:20 CDT Theo dennis MD [facility] CPT-18485 Level 2 Est. Patient 14:08:57 CDT Kalpesh goins MD [facility] CPT-59724 Level 3 Est. Patient 13:56:19 CDT Abdirahman Rios MD [facility] CPT-55721 Level 3 Est. Patient 13:59:37 CDT Abdirahman Rios MD [facility] CPT-57398 Level 2 Est. Patient 14:44:59 CDT Kalpseh goins MD [facility] CPT-76733 Level 3 Est. Patient 06:06:23 CDT Edilberto tiwari [facility] CPT-38266 Level 3 Est. Patient 15:23:54 CDT Abdirahman Rios MD [facility] CPT-76878 Level 3 Est. Patient 15:43:49 CDT Abdirahman Rios MD [facility] CPT-08598 Level 3 Est. Patient 12:46:47 [employer] Abdirahman Rios MD [facility] CPT-35400 Level 3 Est. Patient 08:13:35 [employer] Abdirahman Rios MD [facility] CPT-28930 Level 2 Est. Patient 09:36:42 [employer] Abdirahman Rios MD [facility] CPT-68920 Level 3 Est. Patient 10:56:43 CDT Abdirahman Rios MD [facility] CPT-37460 Level 3 Est. Patient 18:24:52 CDT Abdirahman Rios MD [facility] CPT-44394 Level 3 Est. Patient 13:27:22 CDT Abdirahman Rios MD [facility] Procedures Code Procedure Name Date Entry Date Standard Desc ription CPT-05479 Postop F/U Visit 15:27:43 CDT CPT-34619 Postop F/U Visit 14:40:59 CDT CPT-27220 Postop F/U Visit 15:02:46 CDT CPT-72283 Postop F/U Visit 11:29:00 [employer] CPT-J0696 Rocephin 1000 mg (Ceftriaxone) 17:22:33 [employer] CPT-75063 Postop F/U Visit 18:41:07 [employer] CPT-96169 Postop F/U Visit 08:19:08 [employer] CPT-86628 Immunization Single Admin 16:41:53 CDT 2013 CPT-42831 Fluzone Quadrivalent Intramuscular Suspe nsion 0.5 ML 16:41:53 CDT CPT-OV Office Visit 16:39:18 CDT CPT-OV Office Visit 16:16:36 CDT CPT-OV Office Visit 15:34:48 CDT CPT-87909 Postop F/U Visit 14:50:12 CDT CPT-91063 Postop F/U Visit 14:41:10 CDT CPT-50585 Venipuncture Draw Fee 11:38:04 [employer] CPT-12169 Postop F/U Visit 19:02:59 [employer] CPT-29149 Postop F/U Visit 12:04:54 [employer] CPT-87180 Administration single or combination vac cine inc oral 15:56:43 CDT CPT-91630 Influenza split virus > age 3 15:56:43 CDT CPT-87497 Hand comp min 3V 14:25:19 CDT CPT-33025 Postop F/U Visit 21:40:51 CDT CPT-62286 Postop F/U Visit 10:58:43 CDT CPT-46389 Administration single or combination vac cine inc oral 12:33:54 [employer] CPT-99599 Influenza Preservative Free split virus >age 3 12:33:54 [employer] CPT-67137 Administration single or combination vac cine inc oral 09:30:51 CDT CPT-22839 Influenza split virus > age 3 09:30:51 CDT CPT-78599 Postop F/U Visit 15:14:53 CDT CPT-90957 Postop F/U Visit 13:50:14 CDT CPT-15530 Postop F/U Visit 13:34:52 CDT CPT-OV Office Visit 16:55:03 CDT CPT-67703 [place] of cervix w bx ECC 13:32:50 CDT 10/19 CPT-J1885 Toradol 60 mg (Ketorolac) 15:31:59 CDT 2011 CPT-J1885 Toradol 60 mg (Ketorolac) 15:23:54 CDT 2011 CPT-25723 Visit 11:34:37 [employer] CPT-04990 Visit 10:52:39 [employer] CPT-36410 Visit 10:12:02 [employer] CPT-66876 Visit 11:22:43 [employer] CPT-79050 Visit 11:24:12 [employer] CPT-87947 Visit 10:47:05 [employer] CPT-OV Office Visit 10:26:16 [employer] CPT-OV Office Visit 15:34:31 [employer] CPT-37423 Visit 10:42:08 [employer] CPT-35919 Visit 10:52:45 [employer] CPT-000 Give Appropriate Flu Vaccine 16:56:41 CDT 2 CPT-40601 Administration single or combination vac cine inc oral 10:33:21 CDT CPT-91317 Influenza split virus > age 3 10:33:21 CDT CPT-07624 Visit 13:23:09 CDT CPT-12209 Visit 18:24:52 CDT CPT-40033 Sono OB comp > 14 weeks 12:07:49 CDT 04/07
--- OUTSIDE RECORDS SUMMARY | 2020-01-18 16:26 | XMS REPORT | Clinical Summary ---
Author Author Avery, Jeri Cabrera [facility] Address Unknown Phone Unavailable Allergies, Adverse [...] unspecified SINUSITIS, ACUTE 461.9 Active Rajni Alcazar DEPUTY SHERIFF Acute sinusitis, unspecified BACK PAIN 724.5 Resolved [...] apply q 6 hours, prn 08/03 LIDOCAINE 65961260286 No Longer Active Kalpesh Dong MD Active PERCOCET 10-325 MG TABS 1 tablet every 8 hours as needed for antonia n OXYCODONE-ACETAMINOPHEN 39876466491 No Longer Active Kalpesh Dong MD Active HYDROCODONE-ACETAMINOPHEN 5-325 MG TABS 1 tab by mouth every 6 hours as needed for pain HYDROCODONE-ACETAMINOPHEN 06288405428 No Longer Active Kalpesh Dong MD Active PERCOCET 10-325 MG ORAL TABS 1 every 4 hous as needed OXYCODONE-ACETAMINOPHEN 22007525277 Active Hira Moser APRN Active GLYDO 2 % EXT GEL apply to painful areas as needed LIDOCAINE HCL 64591918337 Active Kalpesh Dong MD Active LC-4 LIDOCAINE 4 % EXT CREA apply to painful area every 12 h ours or as needed LIDOCAINE 05215061977 Active Kalpesh Dong MD Active AUGMENTIN 875-125 MG TAB 1 tab by mouth twice daily with food 20 23/05/16 AMOXICILLIN-POT CLAVULANATE 51938796074 No Longer Active Lizeth hi Yokum DEPUTY SHERIFF 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 FLUTICASONE PROPIONATE 04788780370 No Longer Ac tive Rajni Yokum DEPUTY SHERIFF Active PERCOCET 10-325 MG ORAL TABS take 1 tab by mouth q 4hours as needed for pain OXYCODONE-ACETAMINOPHEN 56199082598 No Longer Active Rajni Yokum DEPUTY SHERIFF Active PERCOCET 10-325 MG ORAL TABS one every 6 hours prn pain OXYCODONE-ACETAMINOPHEN 02449554145 No Longer Active Rajni Yokum DEPUTY SHERIFF Active IBUPROFEN 800 MG TABS 1 tab po tid, with food I BUPROFEN 81715662887 Active Hira Moser APRN Active DICLOFENAC SODIUM 50 MG TBEC 1 tablet by mouth four times da tom PRN Pain DICLOFENAC SODIUM 34623055575 No Longer Active Rajni Yokum DEPUTY SHERIFF Active VIIBRYD 10 & 20 & 40 MG KIT 1 po qd as directed 07/24 VILAZODONE HCL 57544429637 No Longer Active Rajni Yokum DEPUTY SHERIFF Active ONDANSETRON 4 MG TBDP 1 q4h PRN nausea ONDANSET KELBY 24431478491 No Longer Active Rajnicristina Oconnorum DEPUTY SHERIFF Active PERCOCET 10-325 MG TABS 1 tablet every 8 hours as needed for antonia n OXYCODONE-ACETAMINOPHEN 03687700698 No Longer Active Rajni cox DEPUTY SHERIFF Active HYDROCODONE-ACETAMINOPHEN 5-325 MG TABS 1 po TID PRN Pain 9 HYDROCODONE-ACETAMINOPHEN 91803712935 No Longer Active Abdirahman Rios MD Active [id number] 50-325-40 MG ORAL CAPS 1-2 po TID RI N Headache JUMJWZEPCO-IUKICRG-ISOFUCIB 67287791988 No Longer Act krishna Kalpesh Dong MD Active ALPRAZOLAM 0.5 MG TABS 1 po BID PRN Anxiety ALP RAZOLAM 14727419653 No Longer Active Kalpesh Dong MD Active TRAZODONE HCL 100 MG TAB 0.5 to 1 po qHS PRN Insomnia TRAZODONE HCL 88179179607 No Longer Active Kalpesh Dong MD Activ e HYDROCODONE-ACETAMINOPHEN 5-325 MG TABS 1 po q6hr PRN Pain 04/09 HYDROCODONE-ACETAMINOPHEN 51530238205 No Longer Active Kalpesh Dong MD Active CYMBALTA 30 MG CPEP 1 cap by mouth daily DULOXE CLEO HCL 07836662685 No Longer Active Abdirahman Rios MD Active IBUPROFEN 600 MG ORAL TABS 1 by mouth twice a day 2014 IBUPROFEN 50359824323 No Longer Active Abdirahman Rios MD Activ e PERCOCET 5-325 MG TAB 1 tab po q 6 hours, prn severe pain 1 OXYCODONE-ACETAMINOPHEN 65826550541 No Longer Active Abdirahman Rios MD Active SPRINTEC 28 0.25-35 MG-MCG TABS 1 pill by mouth daily for bi rth control NORGESTIMATE-ETH ESTRADIOL 03442119303 No Longer Acti ve Matthewllina Joyzell DEPUTY SHERIFF Active CYCLOBENZAPRINE HCL 10 MG TABS 1 tablet by mouth three times daily as needed for muscle spasm/pain CYCLOBENZAPRINE HCL 29105004138 No Longer Active Jillina Frazell DEPUTY SHERIFF Active HYDROCODONE-ACETAMINOPHEN 5-325 MG TABS 1 po q6hr PRN Pain 03/09 HYDROCODONE-ACETAMINOPHEN 83571632750 No Longer Active Matthewllina Joyzel l DEPUTY SHERIFF Active AUGMENTIN 500-125 MG ORAL TABS 1 by mouth twice a day AMOXICILLIN-POT CLAVULANATE 28892680833 No Longer Active Jillina Frazell DEPUTY SHERIFF Active DICLOFENAC SODIUM 50 MG TBEC 1 tablet by mouth four times da tom PRN Pain DICLOFENAC SODIUM 21808487364 No Longer Active Karenin a Karmenl DEPUTY SHERIFF Active PROMETHAZINE HCL 25 MG TABS 1 four times a day as needed for nausea/vomiting PROMETHAZINE HCL 28117934912 No Longer Active Abdirahman Rios MD Active HYDROCODONE-ACETAMINOPHEN 5-325 MG TABS 1 tab by mouth every 6 hours as needed PRN Pain HYDROCODONE-ACETAMINOPHEN 91764760541 No Longer Active Abdirahman Rios MD Active GEMFIBROZIL 600 MG TABS 1 po BID GEMFIBROZIL 70538050 005 Active Abdirahman Rios MD Active PERCOCET 5-325 MG ORAL TABS 1 every 6 hours as needed OXYCODONE-ACETAMINOPHEN 20200597295 No Longer Active Abdirahman Rios MD Active PERCOCET 5-325 MG TAB 1 tab po q 6 -8 hours, prn for severe pain OXYCODONE-ACETAMINOPHEN 13398176277 No Longer Active Abdirahman Rios MD Active HYDROCODONE-ACETAMINOPHEN 5-325 MG TABS 1 po q6hr PRN pain 06/30 HYDROCODONE-ACETAMINOPHEN 69909358023 No Longer Active Hira roman DEPUTY SHERIFF Active GLUCOPHAGE 500 MG ORAL TABS one by mouth 3 times a day METFORMIN HCL 87843500385 No Longer Active Matthewllina Karmenl DEPUTY SHERIFF Ac tive PERCOCET 10-325 MG TABS 1 tab by mouth every 6 hours , use sparingly for severe pain OXYCODONE-ACETAMINOPHEN 65516341608 No Longer A ctive Abdirahman Rios MD Active EMLA 2.5-2.5 % EXT CREA apply to skin lesion q 6 hours, prn 2014 LIDOCAINE-PRILOCAINE 96790415093 No Longer Active Abdirahman Rios MD Active PERCOCET 10-325 MG ORAL TABS 1 every 4 hours as needed OXYCODONE-ACETAMINOPHEN 74671671955 No Longer Active Abdirahman Rios MD Active AUGMENTIN 875-125 MG TAB 1 tab by mouth twice daily with food 20 21/10/13 AMOXICILLIN-POT CLAVULANATE 89457325037 No Longer Active Ursula Moser APRN Active PROAIR HFA 108 (90 BASE) MCG/ACT AERS 2 puff q 4-6 hrs PRN 01/24 ALBUTEROL SULFATE 79852403744 No Longer Active Kalpesh Dong MD Active PREDNISONE 20 MG TAB 2 tabs daily for 3 days, 1 t ab daily for 3 days, 1/2 tab daily for 2 days PREDNISONE 73763641630 No Longer Active Abdirahman Rios MD Active KEFLEX 500 MG CAP 1 po qid CEPHALEXIN 279310176 20 No Longer Active Kalpesh Dong MD Active PERCOCET 5-325 MG TAB 1 every 6 hours as needed OXYCODONE-ACETAMINOPHEN 74398077673 No Longer Active Shola MCGILL Active LC-5 LIDOCAINE 5 % CREA apply 1 time daily to affected area 2013 LIDOCAINE (ANORECTAL) 02739893890 No Longer Active Hira muniz DEPUTY SHERIFF Active HYDROCODONE-ACETAMINOPHEN 10-325 MG TABS 1 by mouth ev chaka 8 hours as needed for pain HYDROCODONE-ACETAMINOPHEN 97372068831 No Longer Active Jillina Karmenl DEPUTY SHERIFF Active LORATADINE 10 MG TABS 1 tablet by mouth daily L ORATADINE 19780088309 No Longer Active Jillina Frazell DEPUTY SHERIFF Active DIFLUCAN 150 MG TAB 1 qODay x 2 doses FLUCONAZO LE 46743066323 No Longer Active Jillina Frazell DEPUTY SHERIFF Active CYCLOBENZAPRINE HCL 10 MG TABS 1/2 - 1 tab PO tid PRN back p ain, muscle spasm CYCLOBENZAPRINE HCL 68226610673 No Longer Active Karen srii Frazell DEPUTY SHERIFF Active AUGMENTIN 875-125 MG TAB 1 tab by mouth twice daily with food 20 22/05/07 AMOXICILLIN-POT CLAVULANATE 22399021167 No Longer Active Loida Rios MD Active MOBIC 15 MG TABS 1 tab daily MELOXICAM 526389205 14 No Longer Active Abdirahman Rios MD Active PERCOCET 7.5-325 MG TABS 1 PO tid PRN pain OXYCODONE-ACETAMINOPHEN 26682763762 No Longer Active Abdirahman Rios MD Active LIDODERM 5 % PTCH One patch to painful area RI N. On for 12 hrs, off for 12 hrs. LIDOCAINE 05401754772 No Longer Active Abdirahman Rios MD Active PERCOCET 7.5-325 MG TABS 1 PO q 8 hrs PRN pain OXYCODONE-ACETAMINOPHEN 36574290575 No Longer Active Shola MCGILL Active HYDROCODONE-ACETAMINOPHEN 7.5-325 MG TABS 1 by mouth e very 6 hours as needed for pain HYDROCODONE-ACETAMINOPHEN 74645491344 No Longer Active Good Julian MD Active CLINDAMYCIN HCL 300 MG CAPS 1 po QID x 7 days CLINDAMYCIN HCL 85852892480 No Longer Active Abdirahman Rios MD Activ e BACTRIM DS 800-160 MG TABS 1 po BID x 7 days 5 SULFAMETHOXAZOLE-TRIMETHOPRIM 32491929168 No Longer Active Abdirahman Rios MD Active ENDOCET 10-325 MG TABS 1 q 6 hr prn OXYCODONE-ACETAMINOPHEN 69746215507 No Longer Active Abdirahman Rios MD Active IBUPROFEN 800 MG TABS 1 tid prn IBUPROFEN 947601 19209 No Longer Active Abdirahman Rios MD Active BACTRIM DS 800-160 MG TABS by mouth twice a day 11/05 SULFAMETHOXAZOLE-TRIMETHOPRIM 81750784492 No Longer Active Good Julian MD Active HYDROCODONE-ACETAMINOPHEN 7.5-325 MG TABS 1 four times a day as needed for pain HYDROCODONE-ACETAMINOPHEN 54382663454 No Longer Activ e Good Julian MD Active KEFLEX 500 MG CAP 1 tab po tid CEPHALEXIN 281552 63562 No Longer Active Hira Moser APRN Active IBUPROFEN 800 MG TAB 1 pill three times daily as needed for pain IBUPROFEN 66053438659 No Longer Active Kalpesh Dong MD Active PROMETHAZINE-CODEINE 6.25-10 MG/5ML SYRP 1 tsp every 6 hrs prn c ough PROMETHAZINE-CODEINE 42104006062 No Longer Active Kalpesh Carr Active HYDROCODONE-ACETAMINOPHEN 5-325 MG TABS 1 tab by mouth every 6 hours as needed HYDROCODONE-ACETAMINOPHEN 13703027830 No Longer Activ e Shola MCGILL Active CEPHALEXIN 500 MG CAPS 1 PO bid x 7 days CEPHAL EXIN 78018600028 No Longer Active Shola MCGILL Active BACTRIM DS 800-160 MG TAB 1 tab by mouth twice daily 2 TRIMETHOPRIM-SULFAMETHOXAZOLE 88080819526 No Longer Active Kalpesh Dong MD Active HYDROCODONE-ACETAMINOPHEN 5-325 MG TABS 1 PO tid PRN pain 5 HYDROCODONE-ACETAMINOPHEN 93830937917 No Longer Active Abhinav Galvan MD Active IMPLANON 68 MG IMPL IMPLANTED IN LEFT ARM ETONO GESTREL 37660343469 No Longer Active Hira Moser APRN Active AMOXICILLIN 500 MG TABS 2 tabs PO bid x 10 d AM OXICILLIN 69157037676 No Longer Active Kalpesh Dong MD Active LEVAQUIN 500 MG TABS 1 PO q day x 7 days LEVOFL OXACIN 25293321885 No Longer Active Shola MCGILL Active AMITRIPTYLINE HCL 25 MG TAB 1 tab by mouth daily 60 minutes before bedtime AMITRIPTYLINE HCL 40028462748 No Longer Active Shola MCGILL Active LORTAB 5 5-500 MG TABS 1/2 to 1 tablet by mouth go ry 6 hours as needed for pain HYDROCODONE-ACETAMINOPHEN 84174760479 No Longer Active Shola MCGILL Active CEPHALEXIN 500 MG TABS Take one by mouth four times daily, morning, noon, early evening and bedtime. CEPHALEXIN 70652871111 No Long er Active Hira Moser APRN Active TYLENOL/CODEINE #3 300-30 MG TAB 1-2 po q6hr PRN Pain ACETAMINOPHEN-CODEINE 34766361963 No Longer Active Edilberto Marino DO Active PRISTIQ 50 MG [id number] 1 po qd DESVENLAFAXI NE SUCCINATE 43906393775 No Longer Active Edilberto Marino DO Active PENICILLIN V POTASSIUM 500 MG TAB 1 four times a day 2 PENICILLIN V POTASSIUM 84398298272 No Longer Active Edilberto Marino DO Active DOXYCYCLINE HYCLATE 100 MG CAPS Take one (1) tablet by mouth twice a day DOXYCYCLINE HYCLATE 55765285708 No Longer Active Ronnie Galvan MD Active HYDROCODONE-ACETAMINOPHEN 5-325 MG TABS 1 po q 6hr PRN Pain 2011 HYDROCODONE-ACETAMINOPHEN 54572623277 No Longer Active Patri joan Perze RN Active BACTRIM DS 800-160 MG TAB 1 tab by mouth twice daily 2 TRIMETHOPRIM-SULFAMETHOXAZOLE 70503708800 No Longer Active Kalpesh Dong MD Active LORTAB 5 5-500 MG TABS 1/2 to 1 tablet by mouth go ry 4 hours as needed for pain HYDROCODONE-ACETAMINOPHEN 75276363812 No Longer Active Kalpesh Dong MD Active GENERESS FE 0.8-25 MG-MCG CHEW Take one by mouth daily NORETHIN-ETH ESTRADIOL-FE 12678187616 No Longer Active Kalpesh Dong MD Active HYDROCODONE-ACETAMINOPHEN 7.5-500 MG TABS 1-2 every 4 hours as needed HYDROCODONE-ACETAMINOPHEN 37235802185 No Longer Activ e Kalpesh Dong MD Active FERROUS SULFATE 325 (65 FE) MG TABS 1 tablet by mouth twice yung y FERROUS SULFATE 33189753351 No Longer Active Kalpesh Dong MD Active IBUPROFEN 600 MG TAB 1 po q6-8hr PRN IBUPROFEN 37598539784 No Longer Active Kalpesh Dong MD Active SPIRONOLACTONE 25 MG TAB 1 tablet by mouth daily 01/22 SPIRONOLACTONE 26726406146 No Longer Active Kalpesh Dong MD Acti ve HYDROCODONE-ACETAMINOPHEN 7.5-325 MG TABS 1 po QID PRN Pain 2011 HYDROCODONE-ACETAMINOPHEN 81663710753 No Longer Active Kalpesh Dong MD Active CLINDAMYCIN HCL 300 MG CAPS 1 po q6hr x 7 days CLINDAMYCIN HCL 67424974521 No Longer Active Edilberto Marino DO Active PREDNISONE 20 MG TAB 2 tabs daily for 4 days, 1 t ab daily for 4 days, 1/2 tab daily for 4 days PREDNISONE 90772342359 No Longer Active Edilberto Marino DO Active PERCOCET 5-325 MG TABS 1 tablet by mouth every 6 hours as ne eded for pain OXYCODONE-ACETAMINOPHEN 96221039147 No Longer Active Abdirahman Rios MD Active VITAMINS TABS Take one by mouth daily MV & MIN W/FE-FA TABS 40787551255 No Longer Active Abdirahman Rios MD Active LUIS 3-0.02 MG TABS 1 tablet by mouth daily as directed DROSPIRENONE-ETHINYL ESTRADIOL 73090615758 No Longer Active Abdirahman Rios MD Active LORATADINE 10 MG TABS 1 tablet by mouth daily L ORATADINE 56351848851 No Longer Active Kalpesh Dong MD Active HYDROCODONE-ACETAMINOPHEN 5-325 MG TABS 1 po q 6hr PRN Pain 2010 HYDROCODONE-ACETAMINOPHEN 77186827449 No Longer Active Edilberto Marino DO Active BACTRIM DS 800-160 MG TAB 1 tab by mouth twice daily 2 TRIMETHOPRIM-SULFAMETHOXAZOLE 63824964149 No Longer Active Abdirahman Rios MD Active 28-0.8 MG TABS Take one by mouth daily 09/20 VIT-FE FUMARATE-FA 14329932940 No Longer Active Abdirahman Rios MD Active CIPRO 500 MG TAB 1 tablet by mouth twice daily CIPROFLOXACIN HCL 47878741399 No Longer Active Abdirahman Rios MD Active BENADRYL 25 MG CAP 1 po q8hr PRN Congestion DIPHENHYDRAMINE HCL 77479478142 No Longer Active Abdirahman Rios MD Active ZOLOFT 50 MG TAB 1 po qd SERTRALINE HCL 210351 29038 No Longer Active Abdirahman Rios MD Active AMOXICILLIN 875 MG TABS 1 tab by mouth twice daily 201 08/09/13 AMOXICILLIN 49882449493 No Longer Active Abdirahman Rios MD Activ e AMOXICILLIN 875 MG TABS 1 tab by mouth twice daily 201 07/19/27 AMOXICILLIN 02374898014 No Longer Active Abdirahman Rios MD Activ e BACTRIM DS 800-160 MG TAB 2 tab by mouth twice daily 2 TRIMETHOPRIM-SULFAMETHOXAZOLE 08237505015 No Longer Active Abdirahman Rios MD Active KEFLEX 500 MG CAP 1 po tid x 10 days CEPHALEXIN 31804622871 No Longer Active Abdirahman Rios MD Active AMOXICILLIN 875 MG TABS 1 tab by mouth twice daily 201 07/18/07 AMOXICILLIN 22715087843 No Longer Active Abdirahman Rios MD Activ e BACTRIM DS 800-160 MG TAB 2 tab by mouth twice daily 2 BACTRIM DS 800-160 MG TAB 165097 TRIMETHOPRIM-SULFAMETHOXAZOLE Inactive ZOLOFT 50 MG TAB 1 po qd ZOLOFT 50 MG TAB 3129 41 SERTRALINE HCL Inactive BENADRYL 25 MG CAP 1 po q8hr PRN Congestion BENADRYL 25 MG CAP [id number] DIPHENHYDRAMINE HCL Inactive 28-0.8 MG TABS Take one by mouth daily 09/20 28-0.8 MG TABS VIT-FE FUMARATE-FA Inactive HYDROCODONE-ACETAMINOPHEN 5-325 MG TABS 1 po q 6hr PRN Pain 2010 HYDROCODONE-ACETAMINOPHEN 5-325 MG TABS 558128 HYDROCODONE-ACETAMINOPHEN Inactive LORATADINE 10 MG TABS 1 tablet by mouth daily LORATADINE 10 MG TABS 073076 LORATADINE Inactive LUIS 3-0.02 MG TABS 1 tablet by mouth daily as directed LUIS 3-0.02 MG TABS 457018 DROSPIRENONE-ETHINYL ESTRADIOL Inactive VITAMINS TABS Take one by mouth daily VITAMINS TABS MV & MIN W/FE-FA TABS Inactive PERCOCET 5-325 MG TABS 1 tablet by mouth every 6 hours as ne eded for pain PERCOCET 5-325 MG TABS 8598501 OXYCODONE-ACETAMIN OPHEN Inactive PREDNISONE 20 MG TAB 2 tabs daily for 4 days, 1 t ab daily for 4 days, 1/2 tab daily for 4 days PREDNISONE 20 MG TAB 908091 PREDNISON E Inactive CLINDAMYCIN HCL 300 MG CAPS 1 po q6hr x 7 days CLINDAMYCIN HCL 300 MG CAPS 968284 CLINDAMYCIN HCL Inactive HYDROCODONE-ACETAMINOPHEN 7.5-325 MG TABS 1 po QID PRN Pain 2011 HYDROCODONE-ACETAMINOPHEN 7.5-325 MG TABS 014109 HYDROCODONE-ACETAMINOPHEN Inactive SPIRONOLACTONE 25 MG TAB 1 tablet by mouth daily 01/22 SPIRONOLACTONE 25 MG TAB 747703 SPIRONOLACTONE Inactive IBUPROFEN 600 MG TAB 1 po q6-8hr PRN IBUPROFEN 600 MG TAB 181811 IBUPROFEN Inactive FERROUS SULFATE 325 (65 FE) MG TABS 1 tablet by mouth twice yung y FERROUS SULFATE 325 (65 FE) MG TABS 655513 FERROUS SULF ATE Inactive HYDROCODONE-ACETAMINOPHEN 7.5-500 MG TABS 1-2 every 4 hours as needed HYDROCODONE-ACETAMINOPHEN 7.5-500 MG TABS HYDROCODONE-ACETAMINOPHEN Inactive GENERESS FE 0.8-25 MG-MCG CHEW Take one by mouth daily GENERESS FE 0.8-25 MG-MCG CHEW [id number] NORETHIN-ETH ESTRADIOL-FE Inactive LORTAB 5 5-500 MG TABS 1/2 to 1 tablet by mouth go ry 4 hours as needed for pain LORTAB 5 5-500 MG TABS HYDROCODONE-A CETAMINOPHEN Inactive BACTRIM DS 800-160 MG TAB 1 tab by mouth twice daily 2 BACTRIM DS 800-160 MG TAB 863368 TRIMETHOPRIM-SULFAMETHOXAZOLE Inac tive HYDROCODONE-ACETAMINOPHEN 5-325 MG TABS 1 po q 6hr PRN Pain 2011 HYDROCODONE-ACETAMINOPHEN 5-325 MG TABS 678538 HYDROCODONE-ACETAMINOPHEN Inactive DOXYCYCLINE HYCLATE 100 MG CAPS Take one (1) tablet by mouth twice a day DOXYCYCLINE HYCLATE 100 MG CAPS 0373702 DOXYCYCLINE HYCLATE Inactive PENICILLIN V POTASSIUM 500 MG TAB 1 four times a day 2 PENICILLIN V POTASSIUM 500 MG TAB 728710 PENICILLIN V POTASSIUM Siri ctive PRISTIQ 50 MG [id number] 1 po qd PRISTIQ 50 MG [id number] DESVENLAFAXINE SUCCINATE Inactive TYLENOL/CODEINE #3 300-30 MG TAB 1-2 po q6hr PRN Pain TYLENOL/CODEINE #3 300-30 MG TAB 789025 ACETAMINOPHEN-CODEINE Inact krishna CEPHALEXIN 500 MG TABS Take one by mouth four times daily, morning, noon, early evening and bedtime. CEPHALEXIN 500 MG TABS 397513 CEPHALEXIN Inactive LORTAB 5 5-500 MG TABS 1/2 to 1 tablet by mouth og ry 6 hours as needed for pain LORTAB 5 5-500 MG TABS HYDROCODONE-A CETAMINOPHEN Inactive AMITRIPTYLINE HCL 25 MG TAB 1 tab by mouth daily 60 minutes before bedtime AMITRIPTYLINE HCL 25 MG TAB 607649 AMITRIPTYLINE HCL Inactive AMOXICILLIN 500 MG TABS 2 tabs PO bid x 10 d 7 AMOXICILLIN 500 MG TABS 501626 AMOXICILLIN Inactive IMPLANON 68 MG IMPL IMPLANTED IN LEFT ARM IMPLANON 68 MG IMPL ETONOGESTREL Inactive HYDROCODONE-ACETAMINOPHEN 5-325 MG TABS 1 PO tid PRN pain 5 HYDROCODONE-ACETAMINOPHEN 5-325 MG TABS 243359 HYDROCODONE-ACETAMIN OPHEN Inactive BACTRIM DS 800-160 MG TAB 1 tab by mouth twice daily 2 BACTRIM DS 800-160 MG TAB [id number] TRIMETHOPRIM-SULFAMETHOXAZOLE Inac tive CEPHALEXIN 500 MG CAPS 1 PO bid x 7 days CEPHALEXIN 500 MG CAPS 149695 CEPHALEXIN Inactive HYDROCODONE-ACETAMINOPHEN 5-325 MG TABS 1 tab by mouth every 6 hours as needed HYDROCODONE-ACETAMINOPHEN 5-325 MG TABS 216906 HYDROCODONE-ACETAMINOPHEN Inactive PROMETHAZINE-CODEINE 6.25-10 MG/5ML SYRP 1 tsp every 6 hrs prn c ough PROMETHAZINE-CODEINE 6.25-10 MG/5ML SYRP 078366 PROMETH AZINE-CODEINE Inactive IBUPROFEN 800 MG TAB 1 pill three times daily as needed for pain IBUPROFEN 800 MG TAB IBUPROFEN Inactive KEFLEX 500 MG CAP 1 tab po tid KEFLEX 500 MG CAP 828460 CEPHALEXIN Inactive HYDROCODONE-ACETAMINOPHEN 7.5-325 MG TABS 1 four times a day as needed for pain HYDROCODONE-ACETAMINOPHEN 7.5-325 MG TABS 490035 HYDROCODONE-ACETAMINOPHEN Inactive BACTRIM DS 800-160 MG TABS by mouth twice a day 11/05 BACTRIM DS 800-160 MG TABS 19820910 SULFAMETHOXAZOLE-TRIMETHOPRIM Inactive IBUPROFEN 800 MG TABS 1 tid prn IBUPROFEN 800 MG TABS 366268 IBUPROFEN Inactive ENDOCET 10-325 MG TABS 1 q 6 hr prn ENDOC ET 10-325 MG TABS 9054025 OXYCODONE-ACETAMINOPHEN Inactive HYDROCODONE-ACETAMINOPHEN 7.5-325 MG TABS 1 by mouth e very 6 hours as needed for pain HYDROCODONE-ACETAMINOPHEN 7.5-325 MG TABS 790272 HYDROCODONE-ACETAMINOPHEN Inactive PERCOCET 7.5-325 MG TABS 1 PO q 8 hrs PRN pain PERCOCET 7.5-325 MG TABS 2593485 OXYCODONE-ACETAMINOPHEN Inactive LIDODERM 5 % PTCH One patch to painful area RI N. On for 12 hrs, off for 12 hrs. LIDODERM 5 % [facility] 7744536 LIDOCAINE Inactiv e PERCOCET 7.5-325 MG TABS 1 PO tid PRN pain PERCOCET 7.5- 325 MG TABS 6484780 OXYCODONE-ACETAMINOPHEN Inactive MOBIC 15 MG TABS 1 tab daily MOBIC 15 MG TABS 15 2695 MELOXICAM Inactive CYCLOBENZAPRINE HCL 10 MG TABS 1/2 - 1 tab PO tid PRN back p ain, muscle spasm CYCLOBENZAPRINE HCL 10 MG TABS 630935 CYCLOBENZA JOSEPH HCL Inactive LORATADINE 10 MG TABS 1 tablet by mouth daily LORATADINE 10 MG TABS 005034 LORATADINE Inactive HYDROCODONE-ACETAMINOPHEN 10-325 MG TABS 1 by mouth ev chaka 8 hours as needed for pain HYDROCODONE-ACETAMINOPHEN 10-325 MG TABS 923856 HYDROCODONE-ACETAMINOPHEN Inactive LC-5 LIDOCAINE 5 % CREA apply 1 time daily to affected area 2013 LC-5 LIDOCAINE 5 % CREA [id number] LIDOCAINE (ANORECTAL) In active PERCOCET 5-325 MG TAB 1 every 6 hours as needed PERCOCET 5-325 MG TAB 0461748 OXYCODONE-ACETAMINOPHEN Inactive KEFLEX 500 MG CAP 1 po qid KEFLEX 500 MG CAP 30 9114 CEPHALEXIN Inactive PROAIR HFA 108 (90 BASE) MCG/ACT AERS 2 puff q 4-6 hrs PRN 01/24 PROAIR HFA 108 (90 BASE) MCG/ACT AERS ALBUTEROL SULFATE Inactive PERCOCET 10-325 MG ORAL TABS 1 every 4 hours as needed PERCOCET 10-325 MG ORAL TABS 9026959 OXYCODONE-ACETAMINOPHEN Inactiv e EMLA 2.5-2.5 % EXT CREA apply to skin lesion q 6 hours, prn 2014 EMLA 2.5-2.5 % EXT CREA 289004 LIDOCAINE-PRILOCAINE Siri ctive PERCOCET 10-325 MG TABS 1 tab by mouth every 6 hours , use sparingly for severe pain PERCOCET 10-325 MG TABS 0488782 OXYCODONE-ACETAMINOPHEN Inactive GLUCOPHAGE 500 MG ORAL TABS one by mouth 3 times a day GLUCOPHAGE 500 MG ORAL TABS 664491 METFORMIN HCL Inactive HYDROCODONE-ACETAMINOPHEN 5-325 MG TABS 1 po q6hr PRN pain 06/30 HYDROCODONE-ACETAMINOPHEN 5-325 MG TABS 901449 HYDROCOD ONE-ACETAMINOPHEN Inactive PERCOCET 5-325 MG TAB 1 tab po q 6 -8 hours, prn for severe pain PERCOCET 5-325 MG TAB 8224720 OXYCODONE-ACETAMINOPHEN In active PERCOCET 5-325 MG ORAL TABS 1 every 6 hours as needed PERCOCET 5-325 MG ORAL TABS 6719277 OXYCODONE-ACETAMINOPHEN Inactive DICLOFENAC SODIUM 50 MG TBEC 1 tablet by mouth four times da tom PRN Pain DICLOFENAC SODIUM 50 MG TBEC 939436 DICLOFENAC S ODIUM Inactive AUGMENTIN 500-125 MG ORAL TABS 1 by mouth twice a day AUGMENTIN 500-125 MG ORAL TABS 080311 AMOXICILLIN-POT CLAVULANATE I nactive HYDROCODONE-ACETAMINOPHEN 5-325 MG TABS 1 po q6hr PRN Pain 03/09 HYDROCODONE-ACETAMINOPHEN 5-325 MG TABS 854496 HYDROCOD ONE-ACETAMINOPHEN Inactive CYCLOBENZAPRINE HCL 10 MG TABS 1 tablet by mouth three times daily as needed for muscle spasm/pain CYCLOBENZAPRINE HCL 10 MG TABS [id number] CYCLOBENZAPRINE HCL Inactive SPRINTEC 28 0.25-35 MG-MCG TABS 1 pill by mouth daily for bi rth control SPRINTEC 28 0.25-35 MG-MCG TABS [id number] NORGESTIMATE-ETH ESTRADIOL Inactive PERCOCET 5-325 MG TAB 1 tab po q 6 hours, prn severe pain PERCOCET 5-325 MG TAB [id number] OXYCODONE-ACETAMINOPHEN Inactive IBUPROFEN 600 MG ORAL TABS 1 by mouth twice a day 2014 IBUPROFEN 600 MG ORAL TABS 274737 IBUPROFEN Inactive CYMBALTA 30 MG CPEP 1 cap by mouth daily CYMBALTA 30 MG CPEP [id number] DULOXETINE HCL Inactive HYDROCODONE-ACETAMINOPHEN 5-325 MG TABS 1 po q6hr PRN Pain 04/09 HYDROCODONE-ACETAMINOPHEN 5-325 MG TABS [id number] HYDROCOD ONE-ACETAMINOPHEN Inactive TRAZODONE HCL 100 MG TAB 0.5 to 1 po qHS PRN Insomnia TRAZODONE HCL 100 MG TAB [id number] TRAZODONE HCL Inactive ALPRAZOLAM 0.5 MG TABS 1 po BID PRN Anxiety ALPRAZOLAM 0.5 MG TABS 814547 ALPRAZOLAM Inactive [id number] 50-325-40 MG ORAL CAPS 1-2 po TID RI N Headache [id number] 50-325-40 MG ORAL CAPS 2 [id number] [id number] Inactive HYDROCODONE-ACETAMINOPHEN 5-325 MG TABS 1 po TID PRN Pain 9 HYDROCODONE-ACETAMINOPHEN 5-325 MG TABS [id number] HYDROCODONE-ACETAMIN OPHEN Inactive PERCOCET 10-325 MG TABS 1 tablet every 8 hours as needed for antonia n PERCOCET 10-325 MG TABS [id number] OXYCODONE-ACETAMINOPHEN Inactive ONDANSETRON 4 MG TBDP 1 q4h PRN nausea ON DANSETRON 4 MG TBDP 243839 ONDANSETRON Inactive VIIBRYD 10 & 20 & 40 MG KIT 1 po qd as directed 07/24 VIIBRYD 10 & 20 & 40 MG KIT VILAZODONE HCL Inactive DICLOFENAC SODIUM 50 MG TBEC 1 tablet by mouth four times da tom PRN Pain DICLOFENAC SODIUM 50 MG TBEC 866454 DICLOFENAC S ODIUM Inactive PERCOCET 10-325 MG ORAL TABS one every 6 hours prn pain PERCOCET 10-325 MG ORAL TABS [id number] OXYCODONE-ACETAMINOPHEN Inactiv e PERCOCET 10-325 MG ORAL TABS take 1 tab by mouth q 4hours as needed for pain PERCOCET 10-325 MG ORAL TABS [id number] OXYCODONE-ACETAMINOPHEN Inactive FLONASE ALLERGY RELIEF 50 MCG/ACT NASAL SUSP One spray in each nostril twice a day. FLONASE ALLERGY RELIEF 50 MCG/ACT NASAL S [facility] [id number] FLUTICASONE PROPIONATE Inactive AUGMENTIN 875-125 MG TAB 1 tab by mouth twice daily with food 20 23/05/16 AUGMENTIN 875-125 MG TAB [id number] AMOXICILLIN-POT [place] Inactive HYDROCODONE-ACETAMINOPHEN 5-325 MG TABS 1 tab by mouth every 6 hours as needed for pain HYDROCODONE-ACETAMINOPHEN 5-325 MG TABS 8 53587 HYDROCODONE-ACETAMINOPHEN Inactive PERCOCET 10-325 MG TABS 1 tablet every 8 hours as needed for antonia n PERCOCET 10-325 MG TABS [id number] OXYCODONE-ACETAMINOPHEN Inactive LC-4 LIDOCAINE 4 % EXT CREA apply q 6 hours, prn 08/03 LC-4 LIDOCAINE 4 % EXT CREA [id number] LIDOCAINE Inactive AMOXICILLIN 875 MG TABS 1 tab by mouth twice daily 201 07/18/07 AMOXICILLIN 875 MG TABS 856948 AMOXICILLIN Inactive KEFLEX 500 MG CAP 1 po tid x 10 days KEFLEX 500 MG CAP [id number] CEPHALEXIN Inactive AMOXICILLIN 875 MG TABS 1 tab by mouth twice daily 201 07/19/27 AMOXICILLIN 875 MG TABS 409817 AMOXICILLIN Inactive AMOXICILLIN 875 MG TABS 1 tab by mouth twice daily 201 08/09/13 AMOXICILLIN 875 MG TABS 506758 AMOXICILLIN Inactive CIPRO 500 MG TAB 1 tablet by mouth twice daily CIPRO 500 MG TAB 248732 CIPROFLOXACIN HCL Inactive BACTRIM DS 800-160 MG TAB 1 tab by mouth twice daily 2 BACTRIM DS 800-160 MG TAB 451249 TRIMETHOPRIM-SULFAMETHOXAZOLE Inac tive LEVAQUIN 500 MG TABS 1 PO q day x 7 days LEVAQUIN 500 MG TABS 985034 LEVOFLOXACIN Inactive CLINDAMYCIN HCL 300 MG CAPS 1 po QID x 7 days CLINDAMYCIN HCL 300 MG CAPS 902114 CLINDAMYCIN HCL Inactive AUGMENTIN 875-125 MG TAB 1 tab by mouth twice daily with food 20 22/05/07 AUGMENTIN 875-125 MG TAB [id number] AMOXICILLIN-POT [place] Inactive DIFLUCAN 150 MG TAB 1 qODay x 2 doses DIFLUCAN 150 MG TAB 567448 FLUCONAZOLE Inactive PREDNISONE 20 MG TAB 2 tabs daily for 3 days, 1 t ab daily for 3 days, 1/2 tab daily for 2 days PREDNISONE 20 MG TAB 041064 PREDNISON E Inactive AUGMENTIN 875-125 MG TAB 1 tab by mouth twice daily with food 20 21/10/13 AUGMENTIN 875-125 MG TAB 776522 AMOXICILLIN-POT [place] Inactive HYDROCODONE-ACETAMINOPHEN 5-325 MG TABS 1 tab by mouth every 6 hours as needed PRN Pain HYDROCODONE-ACETAMINOPHEN 5-325 MG TABS 8 56834 HYDROCODONE-ACETAMINOPHEN Inactive PROMETHAZINE HCL 25 MG TABS 1 four times a day as needed for nausea/vomiting PROMETHAZINE HCL 25 MG TABS 638438 PROMETHAZINE HCL Inactive Advance Directives Directive Description Start Date PERMISSION TO SHARE Immunizations Vaccine Administration Date Value Standard Alf cription Seasonal influenza vaccine, injectable, containing preservative, for > 3 years old (Afluria, FluLaval, Fluzone, Fluvirin, Fluarix, Agriflu(>= 18 yo)) Fluzone (>3 yrs.) [[id number]] Influenza, seasonal, inject able Seasonal influenza vaccine, injectable, preservative free, for > 3 years old (Afluria, FluLaval, Fluzone, Fluvirin, Fluarix, Agriflu(>= 18 yo)) Fluzone preservative free (>3 yrs.) [[id number]] Influenza, seasonal, injectable, preservative free Seasonal influenza vaccine, injectable, containing preservative, for > 3 years old (Afluria, FluLaval, Fluzone, Fluvirin, Fluarix, Agriflu(>= 18 yo)) Fluzone (>3 yrs.) [[id number]] Influenza, seasonal, inject able Seasonal influenza vaccine, injectable, containing preservative, for > 3 years old (Afluria, FluLaval, Fluzone, Fluvirin, Fluarix, Agriflu(>= 18 yo)) Fluzone (>3 yrs.) [[id number]] Influenza, seasonal, inject able dT (Diphtheria and [...] Panel - Chemistry sodium, serum 142 mmol/L [phone]/05/12 potassium, serum 4.8 mmol/L 3.5-5.2 chloride, serum [...] 341 mg/dL 30-200 cholesterol, serum 181 mg/dL 247-516 9994/05/12 cholesterol, serum 165 mg/dL 364-306 6081/05/12 triglyceride, serum, fasting 524 mg/dL 30-200 HDL [...] negative Encounters Code Encounter Date Provider Facility CPT-89226 Level 3 Est. Patient 05:31:41 HOUSEHOLD COORDINATOR Kalpesh goins MD [facility] [place]-[id number] Level 3 Est. Patient 11:22:02 HOUSEHOLD COORDINATOR Hira muniz [facility] CPT-32672 Level 3 Est. Patient 21:00:18 HOUSEHOLD COORDINATOR Rajni danielson [facility] CPT-10452 Level 3 Est. Patient 14:15:00 HOUSEHOLD COORDINATOR Kalpesh goins MD [facility] [place]-72247 Level 2 Est. Patient 19:57:52 HOUSEHOLD COORDINATOR Rajni danielson [facility] CPT-68348 Level 3 Est. Patient 16:58:40 HOUSEHOLD COORDINATOR Bj funes MD [facility] [place]-25203 Level 3 Est. Patient 08:51:33 CDT Kalpesh goins MD [facility] [place]-90154 Level 4 Est. Patient 14:14:53 CDT Abdirahman Rios MD [facility] CPT-59071 Level 3 Est. Patient 15:47:40 CDT Kalpesh goins MD [facility] [place]-62729 Level 3 Est. Patient 10:57:26 CDT Abdirahman Rios MD [facility] CPT-78709 Level 3 Est. Patient 14:29:53 CDT Abhinav Galvan MD [facility] CPT-18668 Level 2 Est. Patient 16:33:01 CDT Kalpesh goins MD [facility] CPT-84911 Level 4 Est. Patient 16:44:56 CDT Abdirahman Rios MD [facility] CPT-54311 Level 2 Est. Patient 07:49:32 CDT Kalpesh goins MD [facility] CPT-40017 Level 3 New Patient 15:47:11 HOUSEHOLD COORDINATOR Bj huber MD [facility] CPT-39239 Level 4 Est. Patient 14:37:38 HOUSEHOLD COORDINATOR Abdirahman Rios MD [facility] CPT-41859 Level 2 Est. Patient 13:32:17 HOUSEHOLD COORDINATOR Kalpesh goins MD [facility] CPT-62689 Level 3 Est. Patient 17:32:57 HOUSEHOLD COORDINATOR [facility] CPT-47354 Level 3 Est. Patient 17:22:33 HOUSEHOLD COORDINATOR [facility] CPT-90229 Level 2 Est. Patient 16:57:09 HOUSEHOLD COORDINATOR Kalpesh goins MD [facility] CPT-18406 Level 3 Est. Patient 14:03:08 HOUSEHOLD COORDINATOR Abdirahman Rios MD [facility] CPT-10118 Level 3 Est. Patient 18:12:34 CDT Shola Wright [facility] CPT-47564 Level 3 Est. Patient 19:34:46 CDT Shola Wright [facility] CPT-39426 Level 3 Est. Patient 14:19:37 CDT Abdirahman Rios MD [facility] CPT-46368 Level 3 Est. Patient 14:11:58 CDT Kalpesh goins MD [facility] CPT-13430 Level 3 Est. Patient 16:50:00 CDT Michelle MERCADO [facility] CPT-61731 Level 3 Est. Patient 17:11:32 HOUSEHOLD COORDINATOR Brandie bates MD, PhD [facility] CPT-38788 Level 3 Est. Patient 16:31:47 HOUSEHOLD COORDINATOR Shola Wright [facility] CPT-99632 Level 3 Est. Patient 17:51:10 HOUSEHOLD COORDINATOR Abhinav Galvan MD [facility] CPT-87458 Level 4 Est. Patient 12:54:56 HOUSEHOLD COORDINATOR Kalpesh goins MD [facility] [place]-18450 Level 4 Est. Patient 12:53:56 HOUSEHOLD COORDINATOR Kalpesh goins MD [facility] [place]-59542 Level 3 Est. Patient 17:56:58 CDT Shola Wright [facility] CPT-71806 Level 3 Est. Patient 14:26:20 CDT Janak butcher [facility] CPT-18044 Level 3 Est. Patient 09:38:41 CDT Shola Thao Adriana [facility] CPT-01818 Level 3 Est. Patient 14:45:26 CDT Edilberto tiwari [facility] CPT-23249 Level 3 Est. Patient 10:51:33 CDT Hira muniz [facility] CPT-26477 Level 3 Est. Patient 11:57:55 HOUSEHOLD COORDINATOR Shola Thao Adriana [facility] CPT-89652 Level 3 Est. Patient 09:53:33 HOUSEHOLD COORDINATOR [facility] CPT-64811 Level 3 Est. Patient 14:42:54 HOUSEHOLD COORDINATOR Abhinav Galvan MD [facility] CPT-72245 Level 3 Est. Patient 15:10:02 CDT Janak butcher [facility] CPT-71577 Level 3 Est. Patient 15:20:20 CDT Theo dennis MD [facility] CPT-02113 Level 2 Est. Patient 14:08:57 CDT Kalpesh goins MD [facility] [place]-75419 Level 3 Est. Patient 13:56:19 CDT Abdirahman Rios MD [facility] CPT-37097 Level 3 Est. Patient 13:59:37 CDT Abdirahman Rios MD [facility] CPT-59594 Level 2 Est. Patient 14:44:59 CDT Kalpesh goins MD [facility] CPT-50540 Level 3 Est. Patient 06:06:23 CDT Edilberto tiwari DO [facility] CPT-83467 Level 3 Est. Patient 15:23:54 CDT Abdirahman Rios MD [facility] CPT-89200 Level 3 Est. Patient 15:43:49 CDT Abdirahman Rios MD [facility] CPT-91105 Level 3 Est. Patient 12:46:47 HOUSEHOLD COORDINATOR Abdirahman Rios MD [facility] CPT-66652 Level 3 Est. Patient 08:13:35 HOUSEHOLD COORDINATOR Abdirahman Rios MD [facility] CPT-92794 Level 2 Est. Patient 09:36:42 HOUSEHOLD COORDINATOR Abdirahman Rios MD [facility] CPT-98317 Level 3 Est. Patient 10:56:43 CDT Abdirahman Rios MD [facility] CPT-93950 Level 3 Est. Patient 18:24:52 CDT Abdirahman Rios MD [facility] CPT-26889 Level 3 Est. Patient 13:27:22 CDT Abdirahman Rios MD [facility] Procedures Code Procedure Name Date Entry Date Standard Desc ription CPT-01265 Postop F/U Visit 14:08:43 HOUSEHOLD COORDINATOR CPT-96147 Postop F/U Visit 15:18:16 HOUSEHOLD COORDINATOR CPT-95373 Postop F/U Visit 15:03:49 HOUSEHOLD COORDINATOR CPT-39910 Postop F/U Visit 14:45:23 HOUSEHOLD COORDINATOR CPT-97642 Postop F/U Visit 14:11:03 HOUSEHOLD COORDINATOR CPT-12548 Postop F/U Visit 18:21:21 HOUSEHOLD COORDINATOR CPT-25525 Postop F/U Visit 15:57:12 HOUSEHOLD COORDINATOR CPT-64011 Bladder Instillation 16:58:41 HOUSEHOLD COORDINATOR 6 CPT-08090 Fluzone Quadrivalent Intramuscular Suspe nsion 0.5 ML 15:20:56 HOUSEHOLD COORDINATOR CPT-48410 Immunization Single Admin 15:20:56 HOUSEHOLD COORDINATOR 2014 CPT-26636 Excis pilonidal cyst simple 08:51:34 CDT 20 22/04/20 CPT-08868 Venipuncture Draw Fee 14:27:29 CDT CPT-49444 Postop F/U Visit 15:27:43 CDT CPT-49762 Postop F/U Visit 14:40:59 CDT CPT-80095 Postop F/U Visit 15:02:46 CDT CPT-17004 Postop F/U Visit 11:29:00 HOUSEHOLD COORDINATOR CPT-J0696 Rocephin 1000 mg (Ceftriaxone) 17:22:33 HOUSEHOLD COORDINATOR CPT-69154 Postop F/U Visit 18:41:07 HOUSEHOLD COORDINATOR CPT-22347 Postop F/U Visit 08:19:08 HOUSEHOLD COORDINATOR CPT-63405 Immunization Single Admin 16:41:53 CDT 2013 CPT-26603 Fluzone Quadrivalent Intramuscular Suspe nsion 0.5 ML 16:41:53 CDT CPT-OV Office Visit 16:39:18 CDT CPT-OV Office Visit 16:16:36 CDT CPT-OV Office Visit 15:34:48 CDT CPT-17091 Postop F/U Visit 14:50:12 CDT CPT-68854 Postop F/U Visit 14:41:10 CDT CPT-04538 Venipuncture Draw Fee 11:38:04 HOUSEHOLD COORDINATOR CPT-87343 Postop F/U Visit 19:02:59 HOUSEHOLD COORDINATOR CPT-16867 Postop F/U Visit 12:04:54 HOUSEHOLD COORDINATOR CPT-78204 Administration single or combination vac cine inc oral 15:56:43 CDT CPT-26784 Influenza split virus > age 3 15:56:43 CDT CPT-22615 Hand comp min 3V 14:25:19 CDT CPT-02998 Postop F/U Visit 21:40:51 CDT CPT-09631 Postop F/U Visit 10:58:43 CDT CPT-88284 Administration single or combination vac cine inc oral 12:33:54 HOUSEHOLD COORDINATOR CPT-31992 Influenza Preservative Free split virus >age 3 12:33:54 HOUSEHOLD COORDINATOR CPT-25381 Administration single or combination vac cine inc oral 09:30:51 CDT CPT-48175 Influenza split virus > age 3 09:30:51 CDT CPT-50523 Postop F/U Visit 15:14:53 CDT CPT-52132 Postop F/U Visit 13:50:14 CDT CPT-30298 Postop F/U Visit 13:34:52 CDT CPT-OV Office Visit 16:55:03 CDT CPT-16107 [place] of cervix w bx ECC 13:32:50 CDT 10/19 CPT-J1885 Toradol 60 mg (Ketorolac) 15:31:59 CDT 2011 CPT-J1885 Toradol 60 mg (Ketorolac) 15:23:54 CDT 2011 CPT-24664 Visit 11:34:37 HOUSEHOLD COORDINATOR CPT-63414 Visit 10:52:39 HOUSEHOLD COORDINATOR CPT-31621 Visit 10:12:02 HOUSEHOLD COORDINATOR CPT-72884 Visit 11:22:43 HOUSEHOLD COORDINATOR CPT-06413 Visit 11:24:12 HOUSEHOLD COORDINATOR CPT-82084 Visit 10:47:05 HOUSEHOLD COORDINATOR CPT-OV Office Visit 10:26:16 HOUSEHOLD COORDINATOR CPT-OV Office Visit 15:34:31 HOUSEHOLD COORDINATOR CPT-82074 Visit 10:42:08 HOUSEHOLD COORDINATOR CPT-86885 Visit 10:52:45 HOUSEHOLD COORDINATOR CPT-000 Give Appropriate Flu Vaccine 16:56:41 CDT 2 CPT-94858 Administration single or combination vac cine inc oral 10:33:21 CDT CPT-53690 Influenza split virus > age 3 10:33:21 CDT CPT-14299 Visit 13:23:09 CDT CPT-55643 Visit 18:24:52 CDT CPT-98352 Sono OB comp > 14 weeks 12:07:49 CDT 04/07
--- OUTSIDE RECORDS SUMMARY | 2020-01-18 16:27 | XMS REPORT | Clinical Summary ---
Author Author Admin, Jeri Rashid Organization [facility] Address Unknown Phone Unavailable Allergies, Adverse Reactions, [...] NEC Abscess, perirectal 566 Active Hira roman HEALTH RECORD TECHNICIAN Abscess of anal and rectal regions [...] Julian MD JAW PAIN ICD-526.9 Inactive Good collire MD DENTAL CARIES ICD-521.00 Inactive Good Matos [...] TABS 1 po q6hr PRN Pain HYDROCODONE-ACETAMINOPHEN 89463151885 Active Abdirahman Rios MD Active PERCOCET 5-325 MG ORAL TABS 1 every 6 hours as needed OXYCODONE-ACETAMINOPHEN 68639201393 No Longer Active Abdirahman Rios MD Active PERCOCET 5-325 MG TAB 1 tab po q 6 -8 hours, prn for severe pain OXYCODONE-ACETAMINOPHEN 77206802956 No Longer Active Abdirahman Rios MD Active HYDROCODONE-ACETAMINOPHEN 5-325 MG TABS 1 po q6hr PRN pain 06/30 HYDROCODONE-ACETAMINOPHEN 80936473070 No Longer Active Hira roman HEALTH RECORD TECHNICIAN Active SPRINTEC 28 0.25-35 MG-MCG TABS 1 pill by mouth daily for bi rth control NORGESTIMATE-ETH ESTRADIOL 24621028432 Active Hira Moser HEALTH RECORD TECHNICIAN Active GLUCOPHAGE 500 MG ORAL TABS one by mouth 3 times a day METFORMIN HCL 76401774711 No Longer Active Hira Moser APRN Ac tive PERCOCET 10-325 MG TABS 1 tab by mouth every 6 hours , use sparingly for severe pain OXYCODONE-ACETAMINOPHEN 79451871572 No Longer A ctive Abdirahman Rios MD Active IBUPROFEN 600 MG ORAL TABS 1 by mouth twice a day IBUPROFEN 27212624533 Active ERNIE Higuera Active TRAZODONE HCL 100 MG TAB 0.5 to 1 po qHS PRN Insomnia TRAZODONE HCL 80528204428 Active Abdirahman Rios MD Active CYMBALTA 30 MG CPEP 1 cap by mouth daily DULOXE CLEO HCL 49653959819 Active Abdirahman Rios MD Active EMLA 2.5-2.5 % EXT CREA apply to skin lesion q 6 hours, prn 2014 LIDOCAINE-PRILOCAINE 51514299425 No Longer Active Abdirahman Rios MD Active PERCOCET 10-325 MG ORAL TABS 1 every 4 hours as needed OXYCODONE-ACETAMINOPHEN 41086983905 No Longer Active Abdirahman Rios MD Active [id number] 50-325-40 MG ORAL CAPS 1-2 po TID NC N Headache [id number] 19216604103 Active Abdirahman Rios MD Active AUGMENTIN 875-125 MG TAB 1 tab by mouth twice daily with food 20 21/10/13 AMOXICILLIN-POT CLAVULANATE 72062503638 No Longer Active Ursula jasmina Frazell HEALTH RECORD TECHNICIAN Active PROAIR HFA 108 (90 BASE) MCG/ACT AERS 2 puff q 4-6 hrs PRN 01/24 ALBUTEROL SULFATE 14284445744 No Longer Active Kalpesh Dong MD Active ALPRAZOLAM 0.5 MG TABS 1 po BID PRN Anxiety ALPRA ZOLAM 12093065440 Active Abdirahman Rios MD Active CYCLOBENZAPRINE HCL 10 MG TABS 1 tablet by mouth three times daily as needed for muscle spasm/pain CYCLOBENZAPRINE HCL 65414117630 Active Abdirahman Rios MD Active PREDNISONE 20 MG TAB 2 tabs daily for 3 days, 1 t ab daily for 3 days, 1/2 tab daily for 2 days PREDNISONE 24033991175 No Longer Active Abdirahman Rios MD Active KEFLEX 500 MG CAP 1 po qid CEPHALEXIN 385635656 20 No Longer Active Kalpesh Dong MD Active PERCOCET 5-325 MG TAB 1 every 6 hours as needed OXYCODONE-ACETAMINOPHEN 10793827855 No Longer Active Shola MCGILL Active LC-5 LIDOCAINE 5 % CREA apply 1 time daily to affected area 2013 LIDOCAINE (ANORECTAL) 97347112025 No Longer Active Jillina F razell HEALTH RECORD TECHNICIAN Active HYDROCODONE-ACETAMINOPHEN 10-325 MG TABS 1 by mouth ev chaka 8 hours as needed for pain HYDROCODONE-ACETAMINOPHEN 37139225701 No Longer Active Jillina Frazell HEALTH RECORD TECHNICIAN Active LORATADINE 10 MG TABS 1 tablet by mouth daily L ORATADINE 26239054536 No Longer Active Jillina Frazell HEALTH RECORD TECHNICIAN Active DIFLUCAN 150 MG TAB 1 qODay x 2 doses FLUCONAZO LE 23478285527 No Longer Active Jillina Frazell HEALTH RECORD TECHNICIAN Active CYCLOBENZAPRINE HCL 10 MG TABS 1/2 - 1 tab PO tid PRN back p ain, muscle spasm CYCLOBENZAPRINE HCL 13225834935 No Longer Active Karen siri Frazell HEALTH RECORD TECHNICIAN Active AUGMENTIN 875-125 MG TAB 1 tab by mouth twice daily with food 20 22/05/07 AMOXICILLIN-POT CLAVULANATE 07122031884 No Longer Active Loida Rios MD Active MOBIC 15 MG TABS 1 tab daily MELOXICAM 812230803 14 No Longer Active Abdirahman Rios MD Active PERCOCET 7.5-325 MG TABS 1 PO tid PRN pain OXYCODONE-ACETAMINOPHEN 24899714305 No Longer Active Abdirahman Rios MD Active LIDODERM 5 % PTCH One patch to painful area [place] N. On for 12 hrs, off for 12 hrs. LIDOCAINE 98331912317 No Longer Active Abdirahman Rios MD Active PERCOCET 7.5-325 MG TABS 1 PO q 8 hrs PRN pain OXYCODONE-ACETAMINOPHEN 45983156704 No Longer Active Shola MCGILL Active HYDROCODONE-ACETAMINOPHEN 7.5-325 MG TABS 1 by mouth e very 6 hours as needed for pain HYDROCODONE-ACETAMINOPHEN 94321859643 No Longer Active Good Julian MD Active CLINDAMYCIN HCL 300 MG CAPS 1 po QID x 7 days CLINDAMYCIN HCL 40132078886 No Longer Active Abdirahman Rios MD Activ e BACTRIM DS 800-160 MG TABS 1 po BID x 7 days 5 SULFAMETHOXAZOLE-TRIMETHOPRIM 44649474622 No Longer Active Abdirahman Rios MD Active ENDOCET 10-325 MG TABS 1 q 6 hr prn OXYCODONE-ACETAMINOPHEN 91499569119 No Longer Active Abdirahman Rios MD Active IBUPROFEN 800 MG TABS 1 tid prn IBUPROFEN 318275 37448 No Longer Active Abdirahman Rios MD Active BACTRIM DS 800-160 MG TABS by mouth twice a day 11/05 SULFAMETHOXAZOLE-TRIMETHOPRIM 40233667372 No Longer Active Good Julian MD Active HYDROCODONE-ACETAMINOPHEN 7.5-325 MG TABS 1 four times a day as needed for pain HYDROCODONE-ACETAMINOPHEN 36082110839 No Longer Activ e Good Julian MD Active KEFLEX 500 MG CAP 1 tab po tid CEPHALEXIN 723036 76512 No Longer Active Hira Moser APRN Active IBUPROFEN 800 MG TAB 1 pill three times daily as needed for pain IBUPROFEN 95847649270 No Longer Active Kalpesh Dong MD Active PROMETHAZINE-CODEINE 6.25-10 MG/5ML SYRP 1 tsp every 6 hrs prn c ough PROMETHAZINE-CODEINE 83948841354 No Longer Active Kalepsh Carr Active HYDROCODONE-ACETAMINOPHEN 5-325 MG TABS 1 tab by mouth every 6 hours as needed HYDROCODONE-ACETAMINOPHEN 02569217475 No Longer Activ e Shola MCGILL Active CEPHALEXIN 500 MG CAPS 1 PO bid x 7 days CEPHAL EXIN 87816289637 No Longer Active Shola MCGILL Active BACTRIM DS 800-160 MG TAB 1 tab by mouth twice daily 2 TRIMETHOPRIM-SULFAMETHOXAZOLE 92850438603 No Longer Active Kalpesh Dong MD Active HYDROCODONE-ACETAMINOPHEN 5-325 MG TABS 1 PO tid PRN pain 5 HYDROCODONE-ACETAMINOPHEN 64598177061 No Longer Active Abhinav Galvan MD Active IMPLANON 68 MG IMPL IMPLANTED IN LEFT ARM ETONO GESTREL 51611055114 No Longer Active Hira Moser APRN Active AMOXICILLIN 500 MG TABS 2 tabs PO bid x 10 d AM OXICILLIN 76975304578 No Longer Active Kalpesh Dong MD Active LEVAQUIN 500 MG TABS 1 PO q day x 7 days LEVOFL OXACIN 78730763051 No Longer Active Shola MCGILL Active AMITRIPTYLINE HCL 25 MG TAB 1 tab by mouth daily 60 minutes before bedtime AMITRIPTYLINE HCL 40770207068 No Longer Active Shola MCGILL Active LORTAB 5 5-500 MG TABS 1/2 to 1 tablet by mouth go ry 6 hours as needed for pain HYDROCODONE-ACETAMINOPHEN 55271356273 No Longer Active Shola MCGILL Active CEPHALEXIN 500 MG TABS Take one by mouth four times daily, morning, noon, early evening and bedtime. CEPHALEXIN 52592488003 No Long er Active Hira Moser APRN Active TYLENOL/CODEINE #3 300-30 MG TAB 1-2 po q6hr PRN Pain ACETAMINOPHEN-CODEINE 48440546143 No Longer Active Edilberto Marino DO Active PRISTIQ 50 MG [id number] 1 po qd DESVENLAFAXI NE SUCCINATE 97941444963 No Longer Active Edilberto Marino DO Active PENICILLIN V POTASSIUM 500 MG TAB 1 four times a day 2 PENICILLIN V POTASSIUM 93883295147 No Longer Active Edilberto Marino DO Active DOXYCYCLINE HYCLATE 100 MG CAPS Take one (1) tablet by mouth twice a day DOXYCYCLINE HYCLATE 96939747746 No Longer Active Ronnie Galvan MD Active HYDROCODONE-ACETAMINOPHEN 5-325 MG TABS 1 po q 6hr PRN Pain 2011 HYDROCODONE-ACETAMINOPHEN 17668213153 No Longer Active Patri joan Perez RN Active BACTRIM DS 800-160 MG TAB 1 tab by mouth twice daily 2 TRIMETHOPRIM-SULFAMETHOXAZOLE 28847970778 No Longer Active Kalpesh Dong MD Active LORTAB 5 5-500 MG TABS 1/2 to 1 tablet by mouth go ry 4 hours as needed for pain HYDROCODONE-ACETAMINOPHEN 92901242672 No Longer Active Kalpesh Dong MD Active GENERESS FE 0.8-25 MG-MCG CHEW Take one by mouth daily NORETHIN-ETH ESTRADIOL-FE 06908932362 No Longer Active Kalpesh Dong MD Active HYDROCODONE-ACETAMINOPHEN 7.5-500 MG TABS 1-2 every 4 hours as needed HYDROCODONE-ACETAMINOPHEN 18508030582 No Longer Activ e Kalpesh Dong MD Active FERROUS SULFATE 325 (65 FE) MG TABS 1 tablet by mouth twice yung y FERROUS SULFATE 59098749473 No Longer Active Kalpesh Dong MD Active IBUPROFEN 600 MG TAB 1 po q6-8hr PRN IBUPROFEN 33032330875 No Longer Active Kalpesh Dong MD Active SPIRONOLACTONE 25 MG TAB 1 tablet by mouth daily 01/22 SPIRONOLACTONE 14282423843 No Longer Active Kalpesh Dong MD Acti ve HYDROCODONE-ACETAMINOPHEN 7.5-325 MG TABS 1 po QID PRN Pain 2011 HYDROCODONE-ACETAMINOPHEN 67185591077 No Longer Active Kalpesh Dong MD Active CLINDAMYCIN HCL 300 MG CAPS 1 po q6hr x 7 days CLINDAMYCIN HCL 18864085609 No Longer Active Edilberto Marino DO Active PREDNISONE 20 MG TAB 2 tabs daily for 4 days, 1 t ab daily for 4 days, 1/2 tab daily for 4 days PREDNISONE 86599430745 No Longer Active Edilberto Marino DO Active PERCOCET 5-325 MG TABS 1 tablet by mouth every 6 hours as ne eded for pain OXYCODONE-ACETAMINOPHEN 98913817309 No Longer Active Abdirahman Rios MD Active VITAMINS TABS Take one by mouth daily MV & MIN W/FE-FA TABS 60329157511 No Longer Active Abdirahman Rios MD Active LUIS 3-0.02 MG TABS 1 tablet by mouth daily as directed DROSPIRENONE-ETHINYL ESTRADIOL 56959439996 No Longer Active Abdirahman Rios MD Active LORATADINE 10 MG TABS 1 tablet by mouth daily L ORATADINE 02075366559 No Longer Active Kalpesh Dong MD Active HYDROCODONE-ACETAMINOPHEN 5-325 MG TABS 1 po q 6hr PRN Pain 2010 HYDROCODONE-ACETAMINOPHEN 39219557898 No Longer Active Edilberto Marino DO Active BACTRIM DS 800-160 MG TAB 1 tab by mouth twice daily 2 TRIMETHOPRIM-SULFAMETHOXAZOLE 21156318321 No Longer Active Abdirahman Rios MD Active 28-0.8 MG TABS Take one by mouth daily 09/20 VIT-FE FUMARATE-FA 82804813489 No Longer Active Abdirahman Rios MD Active CIPRO 500 MG TAB 1 tablet by mouth twice daily CIPROFLOXACIN HCL 57772203652 No Longer Active Abdirahman Rios MD Active BENADRYL 25 MG CAP 1 po q8hr PRN Congestion DIPHENHYDRAMINE HCL 29843263815 No Longer Active Abdirahman Rios MD Active ZOLOFT 50 MG TAB 1 po qd SERTRALINE HCL 397461 68630 No Longer Active Abdirahman Rios MD Active AMOXICILLIN 875 MG TABS 1 tab by mouth twice daily 201 08/09/13 AMOXICILLIN 58230604121 No Longer Active Abdirahman Rios MD Activ e AMOXICILLIN 875 MG TABS 1 tab by mouth twice daily 201 07/19/27 AMOXICILLIN 73101282588 No Longer Active Abdirahman Rios MD Activ e BACTRIM DS 800-160 MG TAB 2 tab by mouth twice daily 2 TRIMETHOPRIM-SULFAMETHOXAZOLE 46715002258 No Longer Active Abdirahman Rios MD Active KEFLEX 500 MG CAP 1 po tid x 10 days CEPHALEXIN 53011741127 No Longer Active Abdirahman Rios MD Active AMOXICILLIN 875 MG TABS 1 tab by mouth twice daily 201 07/18/07 AMOXICILLIN 83119446943 No Longer Active Abdirahman Rios MD Activ e BACTRIM DS 800-160 MG TAB 2 tab by mouth twice daily 2 BACTRIM DS 800-160 MG TAB TRIMETHOPRIM-SULFAMETHOXAZOLE Inactive ZOLOFT 50 MG TAB 1 po qd ZOLOFT 50 MG TAB 3129 41 SERTRALINE HCL Inactive BENADRYL 25 MG CAP 1 po q8hr PRN Congestion BENADRYL 25 MG CAP 2851106 DIPHENHYDRAMINE HCL Inactive 28-0.8 MG TABS Take one by mouth daily 09/20 28-0.8 MG TABS VIT-FE FUMARATE-FA Inactive HYDROCODONE-ACETAMINOPHEN 5-325 MG TABS 1 po q 6hr PRN Pain 2010 HYDROCODONE-ACETAMINOPHEN 5-325 MG TABS 035955 HYDROCODONE-ACETAMINOPHEN Inactive LORATADINE 10 MG TABS 1 tablet by mouth daily LORATADINE 10 MG TABS 870022 LORATADINE Inactive LUIS 3-0.02 MG TABS 1 tablet by mouth daily as directed LUIS 3-0.02 MG TABS DROSPIRENONE-ETHINYL ESTRADIOL Inactive VITAMINS TABS Take one by mouth daily VITAMINS TABS MV & MIN W/FE-FA TABS Inactive PERCOCET 5-325 MG TABS 1 tablet by mouth every 6 hours as ne eded for pain PERCOCET 5-325 MG TABS 8801524 OXYCODONE-ACETAMIN OPHEN Inactive PREDNISONE 20 MG TAB 2 tabs daily for 4 days, 1 t ab daily for 4 days, 1/2 tab daily for 4 days PREDNISONE 20 MG TAB 407033 PREDNISON E Inactive CLINDAMYCIN HCL 300 MG CAPS 1 po q6hr x 7 days CLINDAMYCIN HCL 300 MG CAPS 137234 CLINDAMYCIN HCL Inactive HYDROCODONE-ACETAMINOPHEN 7.5-325 MG TABS 1 po QID PRN Pain 2011 HYDROCODONE-ACETAMINOPHEN 7.5-325 MG TABS 664113 HYDROCODONE-ACETAMINOPHEN Inactive SPIRONOLACTONE 25 MG TAB 1 tablet by mouth daily 01/22 SPIRONOLACTONE 25 MG TAB 143241 SPIRONOLACTONE Inactive IBUPROFEN 600 MG TAB 1 po q6-8hr PRN IBUPROFEN 600 MG TAB 117754 IBUPROFEN Inactive FERROUS SULFATE 325 (65 FE) MG TABS 1 tablet by mouth twice yung y FERROUS SULFATE 325 (65 FE) MG TABS 765760 FERROUS SULF ATE Inactive HYDROCODONE-ACETAMINOPHEN 7.5-500 MG TABS 1-2 every 4 hours as needed HYDROCODONE-ACETAMINOPHEN 7.5-500 MG TABS HYDROCODONE-ACETAMINOPHEN Inactive GENERESS FE 0.8-25 MG-MCG CHEW Take one by mouth daily GENERESS FE 0.8-25 MG-MCG CHEW 1220547 NORETHIN-ETH ESTRADIOL-FE Inactive LORTAB 5 5-500 MG [...] PRN Pain 2011 HYDROCODONE-ACETAMINOPHEN 5-325 MG TABS 456204 HYDROCODONE-ACETAMINOPHEN Inactive DOXYCYCLINE HYCLATE 100 MG CAPS Take one (1) tablet by mouth twice a day DOXYCYCLINE HYCLATE 100 MG CAPS 1969351 DOXYCYCLINE HYCLATE Inactive PENICILLIN V POTASSIUM 500 MG TAB 1 four times a day 2 PENICILLIN V POTASSIUM 500 MG TAB 529730 PENICILLIN V POTASSIUM Siri ctive PRISTIQ 50 MG [id number] 1 po qd PRISTIQ 50 MG [id number] DESVENLAFAXINE SUCCINATE Inactive TYLENOL/CODEINE #3 300-30 MG TAB 1-2 po q6hr PRN Pain TYLENOL/CODEINE #3 300-30 MG TAB 549312 ACETAMINOPHEN-CODEINE Inact krishna CEPHALEXIN 500 MG TABS Take one by mouth four times daily, morning, noon, early evening and bedtime. CEPHALEXIN 500 MG TABS 352642 CEPHALEXIN Inactive LORTAB 5 5-500 MG TABS 1/2 to 1 tablet by mouth go ry 6 hours as needed for pain LORTAB 5 5-500 MG TABS HYDROCODONE-A CETAMINOPHEN Inactive AMITRIPTYLINE HCL 25 MG TAB 1 tab by mouth daily 60 minutes before bedtime AMITRIPTYLINE HCL 25 MG TAB 612016 AMITRIPTYLINE HCL Inactive AMOXICILLIN 500 MG TABS 2 tabs PO bid x 10 d 7 AMOXICILLIN 500 MG TABS 297692 AMOXICILLIN Inactive IMPLANON 68 MG IMPL IMPLANTED IN LEFT ARM IMPLANON 68 MG IMPL ETONOGESTREL Inactive HYDROCODONE-ACETAMINOPHEN 5-325 MG TABS 1 PO tid PRN pain 5 HYDROCODONE-ACETAMINOPHEN 5-325 MG TABS 060429 HYDROCODONE-ACETAMIN OPHEN Inactive BACTRIM DS 800-160 MG TAB 1 tab by mouth twice daily 2 BACTRIM DS 800-160 MG TAB TRIMETHOPRIM-SULFAMETHOXAZOLE Inac tive CEPHALEXIN 500 MG CAPS 1 PO bid x 7 days CEPHALEXIN 500 MG CAPS 903807 CEPHALEXIN Inactive HYDROCODONE-ACETAMINOPHEN 5-325 MG TABS 1 tab by mouth every 6 hours as needed HYDROCODONE-ACETAMINOPHEN 5-325 MG TABS 815456 HYDROCODONE-ACETAMINOPHEN Inactive PROMETHAZINE-CODEINE 6.25-10 MG/5ML SYRP 1 tsp every 6 hrs prn c ough PROMETHAZINE-CODEINE 6.25-10 MG/5ML SYRP 120704 PROMETH AZINE-CODEINE Inactive IBUPROFEN 800 MG TAB 1 pill three times daily as needed for pain IBUPROFEN 800 MG TAB 853342 IBUPROFEN Inactive KEFLEX 500 MG CAP 1 tab po tid KEFLEX 500 MG CAP 099824 CEPHALEXIN Inactive HYDROCODONE-ACETAMINOPHEN 7.5-325 MG TABS 1 four times a day as needed for pain HYDROCODONE-ACETAMINOPHEN 7.5-325 MG TABS 080857 HYDROCODONE-ACETAMINOPHEN Inactive BACTRIM DS 800-160 MG TABS by mouth twice a day 11/05 BACTRIM DS 800-160 MG TABS SULFAMETHOXAZOLE-TRIMETHOPRIM Inactive IBUPROFEN 800 MG TABS 1 tid prn IBUPROFEN 800 MG TABS 219889 IBUPROFEN Inactive ENDOCET 10-325 MG TABS 1 q 6 hr prn ENDOC ET 10-325 MG TABS 6358915 OXYCODONE-ACETAMINOPHEN Inactive HYDROCODONE-ACETAMINOPHEN 7.5-325 MG TABS 1 by mouth e very 6 hours as needed for pain HYDROCODONE-ACETAMINOPHEN 7.5-325 MG TABS 918877 HYDROCODONE-ACETAMINOPHEN Inactive PERCOCET 7.5-325 MG TABS 1 PO q 8 hrs PRN pain PERCOCET 7.5-325 MG TABS 4139550 OXYCODONE-ACETAMINOPHEN Inactive LIDODERM 5 % PTCH One patch to painful area NC N. On for 12 hrs, off for 12 hrs. LIDODERM 5 % PTCH 0540237 LIDOCAINE Inactiv e PERCOCET 7.5-325 MG TABS 1 PO tid PRN pain PERCOCET 7.5- 325 MG TABS 1829013 OXYCODONE-ACETAMINOPHEN Inactive MOBIC 15 MG TABS 1 tab daily MOBIC 15 MG TABS 15 2695 MELOXICAM Inactive CYCLOBENZAPRINE HCL 10 MG TABS 1/2 - 1 tab PO tid PRN back p ain, muscle spasm CYCLOBENZAPRINE HCL 10 MG TABS 453154 CYCLOBENZA JOSEPH HCL Inactive LORATADINE 10 MG TABS 1 tablet by mouth daily LORATADINE 10 MG TABS 986294 LORATADINE Inactive HYDROCODONE-ACETAMINOPHEN 10-325 MG TABS 1 by mouth ev chaka 8 hours as needed for pain HYDROCODONE-ACETAMINOPHEN 10-325 MG TABS 138103 HYDROCODONE-ACETAMINOPHEN Inactive LC-5 LIDOCAINE 5 % CREA apply 1 time daily to affected area 2013 LC-5 LIDOCAINE 5 % CREA LIDOCAINE (ANORECTAL) In active PERCOCET 5-325 MG TAB 1 every 6 hours as needed PERCOCET 5-325 MG TAB 3930484 OXYCODONE-ACETAMINOPHEN Inactive KEFLEX 500 MG CAP 1 po qid KEFLEX 500 MG CAP 30 14 CEPHALEXIN Inactive PROAIR HFA 108 (90 BASE) MCG/ACT AERS 2 puff q 4-6 hrs PRN 01/24 PROAIR HFA 108 (90 BASE) MCG/ACT AERS ALBUTEROL SULFATE Inactive PERCOCET 10-325 MG ORAL TABS 1 every 4 hours as needed PERCOCET 10-325 MG ORAL TABS 3596251 OXYCODONE-ACETAMINOPHEN Inactiv e EMLA 2.5-2.5 % EXT CREA apply to skin lesion q 6 hours, prn 2014 EMLA 2.5-2.5 % EXT CREA 620686 LIDOCAINE-PRILOCAINE [place] ctive PERCOCET 10-325 MG TABS 1 tab by mouth every 6 hours , use sparingly for severe pain PERCOCET 10-325 MG TABS 8549780 OXYCODONE-ACETAMINOPHEN Inactive GLUCOPHAGE 500 MG ORAL TABS one by mouth 3 times a day GLUCOPHAGE 500 MG ORAL TABS 428687 METFORMIN HCL Inactive HYDROCODONE-ACETAMINOPHEN 5-325 MG TABS 1 po q6hr PRN pain 06/30 HYDROCODONE-ACETAMINOPHEN 5-325 MG TABS 171429 HYDROCOD ONE-ACETAMINOPHEN Inactive PERCOCET 5-325 MG TAB 1 tab po q 6 -8 hours, prn for severe pain PERCOCET 5-325 MG TAB 3251350 OXYCODONE-ACETAMINOPHEN In active PERCOCET 5-325 MG ORAL TABS 1 every 6 hours as needed PERCOCET 5-325 MG ORAL TABS 6671889 OXYCODONE-ACETAMINOPHEN Inactive AMOXICILLIN 875 MG TABS 1 tab by mouth twice daily 201 07/18/07 AMOXICILLIN 875 MG TABS 350531 AMOXICILLIN Inactive KEFLEX 500 MG CAP 1 po tid x 10 days KEFLEX 500 MG CAP 475630 CEPHALEXIN Inactive AMOXICILLIN 875 MG TABS 1 tab by mouth twice daily 201 07/19/27 AMOXICILLIN 875 MG TABS 158189 AMOXICILLIN Inactive AMOXICILLIN 875 MG TABS 1 tab by mouth twice daily 201 08/09/13 AMOXICILLIN 875 MG TABS 159304 AMOXICILLIN Inactive CIPRO 500 MG TAB 1 tablet by mouth twice daily CIPRO 500 MG TAB 714789 CIPROFLOXACIN HCL Inactive BACTRIM DS 800-160 MG TAB 1 tab by mouth twice daily 2 BACTRIM DS 800-160 MG TAB TRIMETHOPRIM-SULFAMETHOXAZOLE Inac tive LEVAQUIN 500 MG TABS 1 PO q day x 7 days LEVAQUIN 500 MG TABS 442395 LEVOFLOXACIN Inactive CLINDAMYCIN HCL 300 MG CAPS 1 po QID x 7 days CLINDAMYCIN HCL 300 MG CAPS 998933 CLINDAMYCIN HCL Inactive AUGMENTIN 875-125 MG TAB 1 tab by mouth twice daily with food 22/05/07 AUGMENTIN 875-125 MG TAB 829637 AMOXICILLIN-POT CLAVULA [place] Inactive DIFLUCAN 150 MG TAB 1 qODay x 2 doses DIFLUCAN 150 MG TAB 789703 FLUCONAZOLE Inactive PREDNISONE 20 MG TAB 2 tabs daily for 3 days, 1 t ab daily for 3 days, 1/2 tab daily for 2 days PREDNISONE 20 MG TAB 551189 PREDNISON E Inactive AUGMENTIN 875-125 MG TAB 1 tab by mouth twice daily with food 21/10/13 AUGMENTIN 875-125 MG TAB 915656 AMOXICILLIN-POT CLAVULA [place] Inactive Advance Directives Directive Description Start Date PERMISSION TO SHARE Immunizations Vaccine Administration Date Value Standard Alf cription Seasonal influenza vaccine, injectable, containing preservative, for > 3 years old (Afluria, FluLaval, Fluzone, Fluvirin, Fluarix, Agriflu(>= 18 yo)) Fluzone (>3 yrs.) [[id number]] Influenza, seasonal, inject able Seasonal influenza vaccine, injectable, preservative free, for > 3 years old (Afluria, FluLaval, Fluzone, Fluvirin, Fluarix, Agriflu(>= 18 yo)) Fluzone preservative free (>3 yrs.) [[id number]] Influenza, seasonal, injectable, preservative free Seasonal influenza vaccine, injectable, containing preservative, for > 3 years old (Afluria, FluLaval, Fluzone, Fluvirin, Fluarix, Agriflu(>= 18 yo)) Fluzone (>3 yrs.) [[id number]] Influenza, seasonal, inject able Seasonal influenza vaccine, injectable, containing preservative, for > 3 years old (Afluria, FluLaval, Fluzone, Fluvirin, Fluarix, Agriflu(>= 18 yo)) Fluzone (>3 yrs.) [[id number]] Influenza, seasonal, inject able dT (Diphtheria and [...] pressure, diastolic - 8462-4 79 mm[Hg] BP irbeiro blood pressure, systolic - 8480-6 124 mm[Hg] [...] Panel - Chemistry sodium, serum 142 mmol/L 186-041 7156/05/12 potassium, serum 4.8 mmol/L 3.5-5.2 chloride, serum [...] Panel - Chemistry cholesterol, serum 165 mg/dL 510-416 9337/05/12 triglyceride, serum, fasting 524 mg/dL 30-200 HDL [...] negative Encounters Code Encounter Date Provider Facility CPT-83311 Level 3 Est. Patient 14:29:53 CDT Abhinav Galvan MD [facility] CPT-83119 Level 2 Est. Patient 16:33:01 CDT Kalpesh [facility] CPT-73674 Level 4 Est. Patient 16:44:56 CDT Abdirahman Rios MD [facility] CPT-02684 Level 2 Est. Patient 07:49:32 CDT Kalpesh [facility] CPT-47459 Level 3 New Patient 15:47:11 MATZO 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 Bj huber MD [facility]-37374 Level 4 Est. Patient 14:37:38 MATZO 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 Abdirahman Rios MD [facility] CPT-41297 Level 2 Est. Patient 13:32:17 MATZO 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 Kalpesh goins [facility] CPT-48015 Level 3 Est. Patient 17:32:57 MATZO 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 Edilberto tiwari [facility] CPT-07171 Level 3 Est. Patient 17:22:33 MATZO 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 Edilberto tiwari [facility] CPT-54962 Level 2 Est. Patient 16:57:09 MATZO 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 Kalpesh goins MD [facility]-84431 Level 3 Est. Patient 14:03:08 MATZO 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 Abdirahman Rios MD [facility] CPT-11197 Level 3 Est. Patient 18:12:34 CDT Shola Wright [facility] CPT-16641 Level 3 Est. Patient 19:34:46 CDT Shola Wright [facility] CPT-79595 Level 3 Est. Patient 14:19:37 CDT Abdirahman Rios MD [facility] CPT-16467 Level 3 Est. Patient 14:11:58 CDT Kalpesh [facility]ins [facility] CPT-86162 Level 3 Est. Patient 16:50:00 CDT Michelle BRADFORDP [facility] CPT-30902 Level 3 Est. Patient 17:11:32 MATZO 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 Brandie bates MD PhD [facility] CPT-05260 Level 3 Est. Patient 16:31:47 MATZO 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 Shola Wright [facility] CPT-90780 Level 3 Est. 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 Patient 12:54:56 MATZO 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 Kalpesh goins MD [facility]-89470 Level 4 Est. Patient 12:53:56 MATZO 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 Kalpesh goins [facility] CPT-08018 Level 3 Est. Patient 17:56:58 CDT Shola Wright [facility] CPT-17904 Level 3 Est. Patient 14:26:20 CDT Janak butcher [facility] CPT-13726 Level 3 Est. Patient 09:38:41 CDT Shola Wright [facility] CPT-97104 Level 3 Est. Patient 14:45:26 CDT Edilberto tiwari [facility] CPT-51630 Level 3 Est. Patient 10:51:33 CDT [facility] Level 3 Est. Patient 11:57:55 MATZO 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 Shola Wright [facility] CPT-63554 Level 3 Est. Patient 09:53:33 MATZO 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 Edilberto tiwari [facility] CPT-49250 Level 3 Est. Patient 14:42:54 MATZO 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 Abhinav Galvan MD [facility] CPT-46380 Level 3 Est. Patient 15:10:02 CDT Janak Stevenamira [facility] [facility] CPT-92432 Level 3 Est. Patient 15:20:20 CDT Theo dennis MD [facility] CPT-54769 Level 2 Est. Patient 14:08:57 CDT Kalpesh goins [facility] CPT-74096 Level 3 Est. Patient 13:56:19 CDT Abdirahman Rios MD [facility] CPT-82437 Level 3 Est. Patient 13:59:37 CDT Abdirahman Rios MD [facility] CPT-67815 Level 2 Est. Patient 14:44:59 CDT Kalpesh [facility] CPT-91576 Level 3 Est. Patient 06:06:23 CDT Edilberto tiwari DO [facility] CPT-39734 Level 3 Est. Patient 15:23:54 CDT Abdirahman Rios MD [facility] CPT-97054 Level 3 Est. Patient 15:43:49 CDT Abdirahman Rios MD [facility] CPT-20010 Level 3 Est. Patient 12:46:47 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 Abdirahman Rios MD [facility] CPT-14614 Level 3 Est. Patient 08:13:35 [employer] 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 Abdirahman Rios MD [facility] CPT-11233 Level 2 Est. 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 Patient 10:56:43 CDT Abdirahman Rios MD [facility] CPT-01413 Level 3 Est. Patient 18:24:52 CDT Abdirahman Rios MD [facility] CPT-89143 Level 3 Est. 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 CPT-12607 Immunization Single Admin 16:41:53 CDT 2013 CPT-10287 Fluzone Quadrivalent Intramuscular Suspe nsion 0.5 ML 16:41:53 CDT CPT-OV Office Visit 16:39:18 CDT CPT-OV Office Visit 16:16:36 CDT CPT-OV Office Visit 15:34:48 CDT CPT-50577 Postop F/U Visit 14:50:12 CDT CPT-35601 Postop F/U Visit 14:41:10 CDT CPT-20950 Venipuncture Draw Fee 11:38:04 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 CPT-34004 Postop F/U Visit 19:02:59 [employer] 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 CPT-68903 Postop F/U Visit 12:04:54 [employer] 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 CPT-52935 Administration single or combination vac cine inc oral 15:56:43 CDT CPT-82032 Influenza split virus > age 3 15:56:43 CDT CPT-40691 Hand comp min 3V 14:25:19 CDT CPT-91851 Postop F/U Visit 21:40:51 CDT CPT-05264 Postop F/U Visit 10:58:43 CDT CPT-97197 Administration single or combination vac cine inc oral 12:33:54 [employer] 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 CPT-61020 Influenza Preservative Free split virus >age 3 12:33:54 [employer] 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 CPT-20209 Administration single or combination vac cine inc oral 09:30:51 CDT CPT-89639 Influenza split virus > age 3 09:30:51 CDT CPT-96911 Postop F/U Visit 15:14:53 CDT CPT-60132 Postop F/U Visit 13:50:14 CDT CPT-47443 Postop F/U Visit 13:34:52 CDT CPT-OV Office Visit 16:55:03 CDT CPT-19416 [place] of cervix w bx ECC 13:32:50 CDT 10/19 CPT-J1885 Toradol 60 mg (Ketorolac) 15:31:59 CDT 2011 CPT-J1885 Toradol 60 mg (Ketorolac) 15:23:54 CDT 2011 CPT-52731 Visit 11:34:37 [employer] 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 CPT-95813 Visit 10:52:39 [employer] 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 CPT-05932 Visit 10:12:02 [employer] 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 CPT-53716 Visit 11:22:43 [employer] 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 CPT-36824 Visit 11:24:12 [employer] 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 CPT-07214 Visit 10:47:05 [employer] 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 CPT-OV Office Visit 10:26:16 [employer] 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 CPT-OV Office Visit 15:34:31 [employer] 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 CPT-43963 Visit 10:42:08 [employer] 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 CPT-65814 Visit 10:52:45 [employer] 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 CPT-000 Give Appropriate Flu Vaccine 16:56:41 CDT 2 CPT-85307 Administration single or combination vac cine inc oral 10:33:21 CDT CPT-32964 Influenza split virus > age 3 10:33:21 CDT CPT-72041 Visit 13:23:09 CDT CPT-24265 Visit 18:24:52 CDT CPT-45475 Sono OB comp > 14 weeks 12:07:49 CDT 04/07
--- OUTSIDE RECORDS SUMMARY | 2020-01-18 16:27 | XMS REPORT | Clinical Summary ---
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 Abscess of anal and rectal regions , [...] Generic Name NDC Status Provider Patient Instruction [id number] 50-325-40 MG ORAL CAPS 1-2 po TID MD N Headache [id number] Active Abdirahman Rios MD Active AUGMENTIN 875-125 MG TAB 1 tab by mouth twice daily with food 20 21/10/13 AMOXICILLIN-POT CLAVULANATE 07283059925 No Longer Active Ursula Moser APRN Active PERCOCET 10-325 MG ORAL TABS 1 every 4 hours as needed OXYCODONE-ACETAMINOPHEN 49025677660 Active Hira Moser APRN Active PROAIR HFA 108 (90 BASE) MCG/ACT AERS 2 puff q 4-6 hrs PRN 01/24 ALBUTEROL SULFATE 06820046402 No Longer Active Kalpesh Dong MD Active ALPRAZOLAM 0.5 MG TABS 1 po BID PRN Anxiety ALPRA ZOLAM 52598740196 Active Abdirahman Rios MD Active EMLA 2.5-2.5 % EXT CREA apply to skin lesion q 6 hours, prn LIDOCAINE-PRILOCAINE 92242766856 Active Hira Moser APRN Active CYCLOBENZAPRINE HCL 10 MG TABS 1 tablet by mouth three times daily as needed for muscle spasm/pain CYCLOBENZAPRINE HCL 33810833538 Active Abdirahman Rios MD Active PREDNISONE 20 MG TAB 2 tabs daily for 3 days, 1 t ab daily for 3 days, 1/2 tab daily for 2 days PREDNISONE 45106994242 No Longer Active Abdirahman Rios MD Active KEFLEX 500 MG CAP 1 po qid CEPHALEXIN 016079227 20 No Longer Active Kalpesh Dong MD Active PERCOCET 5-325 MG TAB 1 every 6 hours as needed OXYCODONE-ACETAMINOPHEN 16820836855 No Longer Active Shola MCGILL Active LC-5 LIDOCAINE 5 % CREA apply 1 time daily to affected area 2013 LIDOCAINE (ANORECTAL) 91807212217 No Longer Active Hira muniz APRN Active HYDROCODONE-ACETAMINOPHEN 5-325 MG TABS 2 tablets by m outh every 8 hours as needed for pain HYDROCODONE-ACETAMINOPHEN 94710303554 Acti ve Rajni Craigkjagjit [employer] PRINTING PRESS OPERATOR Active HYDROCODONE-ACETAMINOPHEN 10-325 MG TABS 1 by mouth ev chaka 8 hours as needed for pain HYDROCODONE-ACETAMINOPHEN 06990556734 No Longer Active Jillina Frazell [employer] PRINTING PRESS OPERATOR Active LORATADINE 10 MG TABS 1 tablet by mouth daily L ORATADINE 45835239308 No Longer Active Jillina Frazell TOP PRINTING PRESS OPERATOR Active DIFLUCAN 150 MG TAB 1 qODay x 2 doses FLUCONAZO LE 57127645234 No Longer Active Jillina Frazell TOP PRINTING PRESS OPERATOR Active CYCLOBENZAPRINE HCL 10 MG TABS 1/2 - 1 tab PO tid PRN back p ain, muscle spasm CYCLOBENZAPRINE HCL 31819090397 No Longer Active Karen siri Frazell TOP PRINTING PRESS OPERATOR Active AUGMENTIN 875-125 MG TAB 1 tab by mouth twice daily with food 20 22/05/07 AMOXICILLIN-POT CLAVULANATE 44098878959 No Longer Active Loida Rios MD Active MOBIC 15 MG TABS 1 tab daily MELOXICAM 898729462 14 No Longer Active Abdirahman Rios MD Active PERCOCET 7.5-325 MG TABS 1 PO tid PRN pain OXYCODONE-ACETAMINOPHEN 22909970745 No Longer Active Abdirahman Rios MD Active LIDODERM 5 % PTCH One patch to painful area MD N. On for 12 hrs, off for 12 hrs. LIDOCAINE 74997503883 No Longer Active Abdirahman Riso MD Active PERCOCET 7.5-325 MG TABS 1 PO q 8 hrs PRN pain OXYCODONE-ACETAMINOPHEN 87096647238 No Longer Active Shola MCGILL Active HYDROCODONE-ACETAMINOPHEN 7.5-325 MG TABS 1 by mouth e very 6 hours as needed for pain HYDROCODONE-ACETAMINOPHEN 81667708709 No Longer Active Good Julian MD Active CLINDAMYCIN HCL 300 MG CAPS 1 po QID x 7 days CLINDAMYCIN HCL 59313823510 No Longer Active Abdirahman Rios MD Activ e BACTRIM DS 800-160 MG TABS 1 po BID x 7 days 5 SULFAMETHOXAZOLE-TRIMETHOPRIM 31114422506 No Longer Active Abdirahman Rios MD Active ENDOCET 10-325 MG TABS 1 q 6 hr prn OXYCODONE-ACETAMINOPHEN 11615115105 No Longer Active Abdirahman Rios MD Active IBUPROFEN 800 MG TABS 1 tid prn IBUPROFEN 259190 11128 No Longer Active Abdirahman Rios MD Active BACTRIM DS 800-160 MG TABS by mouth twice a day 11/05 SULFAMETHOXAZOLE-TRIMETHOPRIM 14703861073 No Longer Active Good Julian MD Active HYDROCODONE-ACETAMINOPHEN 7.5-325 MG TABS 1 four times a day as needed for pain HYDROCODONE-ACETAMINOPHEN 11333553323 No Longer Activ e Good Julian MD Active KEFLEX 500 MG CAP 1 tab po tid CEPHALEXIN 338703 80286 No Longer Active Hira Moser APRN Active IBUPROFEN 800 MG TAB 1 pill three times daily as needed for pain IBUPROFEN 98469631363 No Longer Active Kalpesh Dong MD Active PROMETHAZINE-CODEINE 6.25-10 MG/5ML SYRP 1 tsp every 6 hrs prn c ough PROMETHAZINE-CODEINE 59170635874 No Longer Active Kalpesh Carr Active HYDROCODONE-ACETAMINOPHEN 5-325 MG TABS 1 tab by mouth every 6 hours as needed HYDROCODONE-ACETAMINOPHEN 61145692717 No Longer Activ e Shola MCGILL Active CEPHALEXIN 500 MG CAPS 1 PO bid x 7 days CEPHAL EXIN 94467939114 No Longer Active Shola MCGILL Active BACTRIM DS 800-160 MG TAB 1 tab by mouth twice daily 2 TRIMETHOPRIM-SULFAMETHOXAZOLE 92673977141 No Longer Active Kalpesh Dong MD Active HYDROCODONE-ACETAMINOPHEN 5-325 MG TABS 1 PO tid PRN pain 5 HYDROCODONE-ACETAMINOPHEN 57545323706 No Longer Active Abhinav Galvan MD Active IMPLANON 68 MG IMPL IMPLANTED IN LEFT ARM ETONO GESTREL 78979482217 No Longer Active Hira Moser APRN Active AMOXICILLIN 500 MG TABS 2 tabs PO bid x 10 d AM OXICILLIN 02619891125 No Longer Active Kalpesh Dong MD Active LEVAQUIN 500 MG TABS 1 PO q day x 7 days LEVOFL OXACIN 71147384251 No Longer Active Shola MCGILL Active AMITRIPTYLINE HCL 25 MG TAB 1 tab by mouth daily 60 minutes before bedtime AMITRIPTYLINE HCL 39615024109 No Longer Active Shola MCGLIL Active LORTAB 5 5-500 MG TABS 1/2 to 1 tablet by mouth go ry 6 hours as needed for pain HYDROCODONE-ACETAMINOPHEN 52303554765 No Longer Active Shola MCGILL Active CEPHALEXIN 500 MG TABS Take one by mouth four times daily, morning, noon, early evening and bedtime. CEPHALEXIN 35748642391 No Long er Active Hira Moser APRN Active TYLENOL/CODEINE #3 300-30 MG TAB 1-2 po q6hr PRN Pain ACETAMINOPHEN-CODEINE 46540597343 No Longer Active Edilberto Marino DO Active PRISTIQ 50 MG QO30P-NLS 1 po qd DESVENLAFAXI NE SUCCINATE 38979829547 No Longer Active Edilberto Marino DO Active PENICILLIN V POTASSIUM 500 MG TAB 1 four times a day 2 PENICILLIN V POTASSIUM 02362845061 No Longer Active Edilberto Marino DO Active DOXYCYCLINE HYCLATE 100 MG CAPS Take one (1) tablet by mouth twice a day DOXYCYCLINE HYCLATE 26339318376 No Longer Active Ronnie Galvan MD Active HYDROCODONE-ACETAMINOPHEN 5-325 MG TABS 1 po q 6hr PRN Pain 2011 HYDROCODONE-ACETAMINOPHEN 72023724760 No Longer Active Patri joan Perez RN Active BACTRIM DS 800-160 MG TAB 1 tab by mouth twice daily 2 TRIMETHOPRIM-SULFAMETHOXAZOLE 67152026859 No Longer Active Kalpesh Dong MD Active LORTAB 5 5-500 MG TABS 1/2 to 1 tablet by mouth go ry 4 hours as needed for pain HYDROCODONE-ACETAMINOPHEN 18969280490 No Longer Active Kalpesh Dong MD Active GENERESS FE 0.8-25 MG-MCG CHEW Take one by mouth daily NORETHIN-ETH ESTRADIOL-FE 62664924903 No Longer Active Kalpesh Dong MD Active HYDROCODONE-ACETAMINOPHEN 7.5-500 MG TABS 1-2 every 4 hours as needed HYDROCODONE-ACETAMINOPHEN 62228670377 No Longer Activ e Kalpesh Dong MD Active FERROUS SULFATE 325 (65 FE) MG TABS 1 tablet by mouth twice yung y FERROUS SULFATE 74269667852 No Longer Active Kalpesh Dong MD Active IBUPROFEN 600 MG TAB 1 po q6-8hr PRN IBUPROFEN 75940550439 No Longer Active Kalpesh Dong MD Active SPIRONOLACTONE 25 MG TAB 1 tablet by mouth daily 01/22 SPIRONOLACTONE 25798601158 No Longer Active Kalpesh Dong MD Acti ve HYDROCODONE-ACETAMINOPHEN 7.5-325 MG TABS 1 po QID PRN Pain 2011 HYDROCODONE-ACETAMINOPHEN 14707252979 No Longer Active Kalpesh Dong MD Active CLINDAMYCIN HCL 300 MG CAPS 1 po q6hr x 7 days CLINDAMYCIN HCL 25119745872 No Longer Active Edilberto Marino DO Active PREDNISONE 20 MG TAB 2 tabs daily for 4 days, 1 t ab daily for 4 days, 1/2 tab daily for 4 days PREDNISONE 74705900521 No Longer Active Edilberto Marino DO Active PERCOCET 5-325 MG TABS 1 tablet by mouth every 6 hours as ne eded for pain OXYCODONE-ACETAMINOPHEN 53127255227 No Longer Active Abdirahman Rios MD Active VITAMINS TABS Take one by mouth daily MV & MIN W/FE-FA TABS 20071524901 No Longer Active Abdirahman Rios MD Active LUIS 3-0.02 MG TABS 1 tablet by mouth daily as directed DROSPIRENONE-ETHINYL ESTRADIOL 95960080112 No Longer Active Abdirahman Rios MD Active LORATADINE 10 MG TABS 1 tablet by mouth daily L ORATADINE 80087989960 No Longer Active Kalpesh Dong MD Active HYDROCODONE-ACETAMINOPHEN 5-325 MG TABS 1 po q 6hr PRN Pain 2010 HYDROCODONE-ACETAMINOPHEN 15769078849 No Longer Active Edilberto Marino DO Active BACTRIM DS 800-160 MG TAB 1 tab by mouth twice daily 2 TRIMETHOPRIM-SULFAMETHOXAZOLE 67853889924 No Longer Active Abdirahman Rios MD Active 28-0.8 MG TABS Take one by mouth daily 09/20 VIT-FE FUMARATE-FA 87937817637 No Longer Active Abdirahman Rios MD Active CIPRO 500 MG TAB 1 tablet by mouth twice daily CIPROFLOXACIN HCL 23758927180 No Longer Active Abdirahman Rios MD Active BENADRYL 25 MG CAP 1 po q8hr PRN Congestion DIPHENHYDRAMINE HCL 09520086407 No Longer Active Abdirahman Rios MD Active ZOLOFT 50 MG TAB 1 po qd SERTRALINE HCL 221487 80110 No Longer Active Abdirahman Rios MD Active AMOXICILLIN 875 MG TABS 1 tab by mouth twice daily 201 08/09/13 AMOXICILLIN 88214615514 No Longer Active Abdirahman Rios MD Activ e AMOXICILLIN 875 MG TABS 1 tab by mouth twice daily 201 07/19/27 AMOXICILLIN 48994194882 No Longer Active Abdirahman Rios MD Activ e BACTRIM DS 800-160 MG TAB 2 tab by mouth twice daily 2 TRIMETHOPRIM-SULFAMETHOXAZOLE 91751366055 No Longer Active Abdirahman Rios MD Active KEFLEX 500 MG CAP 1 po tid x 10 days CEPHALEXIN 68735703971 No Longer Active Abdirahman Rios MD Active AMOXICILLIN 875 MG TABS 1 tab by mouth twice daily 201 07/18/07 AMOXICILLIN 19137358974 No Longer Active Abdirahman Rios MD Activ e BACTRIM DS 800-160 MG TAB 2 tab by mouth twice daily 2 BACTRIM DS 800-160 MG TAB TRIMETHOPRIM-SULFAMETHOXAZOLE Inactive ZOLOFT 50 MG TAB 1 po qd ZOLOFT 50 MG TAB 3129 41 SERTRALINE HCL Inactive BENADRYL 25 MG CAP 1 po q8hr PRN Congestion BENADRYL 25 MG CAP 6484851 DIPHENHYDRAMINE HCL Inactive 28-0.8 MG TABS Take one by mouth daily 09/20 28-0.8 MG TABS VIT-FE FUMARATE-FA Inactive HYDROCODONE-ACETAMINOPHEN 5-325 MG TABS 1 po q 6hr PRN Pain 2010 HYDROCODONE-ACETAMINOPHEN 5-325 MG TABS 031995 HYDROCODONE-ACETAMINOPHEN Inactive LORATADINE 10 MG TABS 1 tablet by mouth daily LORATADINE 10 MG TABS 191858 LORATADINE Inactive LUIS 3-0.02 MG TABS 1 tablet by mouth daily as directed LUIS 3-0.02 MG TABS DROSPIRENONE-ETHINYL ESTRADIOL Inactive VITAMINS TABS Take one by mouth daily VITAMINS TABS MV & MIN W/FE-FA TABS Inactive PERCOCET 5-325 MG TABS 1 tablet by mouth every 6 hours as ne eded for pain PERCOCET 5-325 MG TABS 7595489 OXYCODONE-ACETAMIN OPHEN Inactive PREDNISONE 20 MG TAB 2 tabs daily for 4 days, 1 t ab daily for 4 days, 1/2 tab daily for 4 days PREDNISONE 20 MG TAB 898073 PREDNISON E Inactive CLINDAMYCIN HCL 300 MG CAPS 1 po q6hr x 7 days CLINDAMYCIN HCL 300 MG CAPS 280115 CLINDAMYCIN HCL Inactive HYDROCODONE-ACETAMINOPHEN 7.5-325 MG TABS 1 po QID PRN Pain 2011 HYDROCODONE-ACETAMINOPHEN 7.5-325 MG TABS 142656 HYDROCODONE-ACETAMINOPHEN Inactive SPIRONOLACTONE 25 MG TAB 1 tablet by mouth daily 01/22 SPIRONOLACTONE 25 MG TAB 916934 SPIRONOLACTONE Inactive IBUPROFEN 600 MG TAB 1 po q6-8hr PRN IBUPROFEN 600 MG TAB 940830 IBUPROFEN Inactive FERROUS SULFATE 325 (65 FE) MG TABS 1 tablet by mouth twice yung y FERROUS SULFATE 325 (65 FE) MG TABS 545082 FERROUS SULF ATE Inactive HYDROCODONE-ACETAMINOPHEN 7.5-500 MG [...] PRN Pain 2011 HYDROCODONE-ACETAMINOPHEN 5-325 MG TABS 816021 HYDROCODONE-ACETAMINOPHEN Inactive DOXYCYCLINE HYCLATE 100 MG CAPS Take one (1) tablet by mouth twice a day DOXYCYCLINE HYCLATE 100 MG CAPS 182364 DOXYCYCLINE HYCLATE Inactive PENICILLIN V POTASSIUM 500 MG TAB 1 four times a day 2 PENICILLIN V POTASSIUM 500 MG TAB 482667 PENICILLIN V POTASSIUM Siri ctive PRISTIQ 50 MG [id number]-RIP 1 po qd PRISTIQ 50 MG SZ41C-SOL DESVENLAFAXINE SUCCINATE Inactive TYLENOL/CODEINE #3 300-30 MG TAB 1-2 po q6hr PRN Pain TYLENOL/CODEINE #3 300-30 MG TAB 803219 ACETAMINOPHEN-CODEINE Inact krishna CEPHALEXIN 500 MG TABS Take one by mouth four times daily, morning, noon, early evening and bedtime. CEPHALEXIN 500 MG TABS 759992 CEPHALEXIN Inactive LORTAB 5 5-500 MG TABS 1/2 to 1 tablet by mouth go ry 6 hours as needed for pain LORTAB 5 5-500 MG TABS HYDROCODONE-A CETAMINOPHEN Inactive AMITRIPTYLINE HCL 25 MG TAB 1 tab by mouth daily 60 minutes before bedtime AMITRIPTYLINE HCL 25 MG TAB 413935 AMITRIPTYLINE HCL Inactive AMOXICILLIN 500 MG TABS 2 tabs PO bid x 10 d 7 AMOXICILLIN 500 MG TABS 119161 AMOXICILLIN Inactive IMPLANON 68 MG IMPL IMPLANTED IN LEFT ARM IMPLANON 68 MG IMPL ETONOGESTREL Inactive HYDROCODONE-ACETAMINOPHEN 5-325 MG TABS 1 PO tid PRN pain 5 HYDROCODONE-ACETAMINOPHEN 5-325 MG TABS 878901 HYDROCODONE-ACETAMIN OPHEN Inactive BACTRIM DS 800-160 MG TAB 1 tab by mouth twice daily 2 BACTRIM DS 800-160 MG TAB TRIMETHOPRIM-SULFAMETHOXAZOLE Inac tive CEPHALEXIN 500 MG CAPS 1 PO bid x 7 days CEPHALEXIN 500 MG CAPS 343362 CEPHALEXIN Inactive HYDROCODONE-ACETAMINOPHEN 5-325 MG TABS 1 tab by mouth every 6 hours as needed HYDROCODONE-ACETAMINOPHEN 5-325 MG TABS 656663 HYDROCODONE-ACETAMINOPHEN Inactive PROMETHAZINE-CODEINE 6.25-10 MG/5ML SYRP 1 tsp every 6 hrs prn c ough PROMETHAZINE-CODEINE 6.25-10 MG/5ML SYRP 333254 PROMETH AZINE-CODEINE Inactive IBUPROFEN 800 MG TAB 1 pill three times daily as needed for pain IBUPROFEN 800 MG TAB 599547 IBUPROFEN Inactive KEFLEX 500 MG CAP 1 tab po tid KEFLEX 500 MG CAP 738978 CEPHALEXIN Inactive HYDROCODONE-ACETAMINOPHEN 7.5-325 MG TABS 1 four times a day as needed for pain HYDROCODONE-ACETAMINOPHEN 7.5-325 MG TABS 232463 HYDROCODONE-ACETAMINOPHEN Inactive BACTRIM DS 800-160 MG TABS by mouth twice a day 11/05 BACTRIM DS 800-160 MG TABS SULFAMETHOXAZOLE-TRIMETHOPRIM Inactive IBUPROFEN 800 MG TABS 1 tid prn IBUPROFEN 800 MG TABS 859575 IBUPROFEN Inactive ENDOCET 10-325 MG TABS 1 q 6 hr prn ENDOC ET 10-325 MG TABS 6810345 OXYCODONE-ACETAMINOPHEN Inactive HYDROCODONE-ACETAMINOPHEN 7.5-325 MG TABS 1 by mouth e very 6 hours as needed for pain HYDROCODONE-ACETAMINOPHEN 7.5-325 MG TABS 820206 HYDROCODONE-ACETAMINOPHEN Inactive PERCOCET 7.5-325 MG TABS 1 PO q 8 hrs PRN pain PERCOCET 7.5-325 MG TABS 4739512 OXYCODONE-ACETAMINOPHEN Inactive LIDODERM 5 % PTCH One patch to painful area MD N. On for 12 hrs, off for 12 hrs. LIDODERM 5 % PTCH 8336146 LIDOCAINE Inactiv e PERCOCET 7.5-325 MG TABS 1 PO tid PRN pain PERCOCET 7.5- 325 MG TABS 5092651 OXYCODONE-ACETAMINOPHEN Inactive MOBIC 15 MG TABS 1 tab daily MOBIC 15 MG TABS 15 2695 MELOXICAM Inactive CYCLOBENZAPRINE HCL 10 MG TABS 1/2 - 1 tab PO tid PRN back p ain, muscle spasm CYCLOBENZAPRINE HCL 10 MG TABS 823332 CYCLOBENZA JOSEPH HCL Inactive LORATADINE 10 MG TABS 1 tablet by mouth daily LORATADINE 10 MG TABS 372682 LORATADINE Inactive HYDROCODONE-ACETAMINOPHEN 10-325 MG TABS 1 by mouth ev chaka 8 hours as needed for pain HYDROCODONE-ACETAMINOPHEN 10-325 MG TABS 834168 HYDROCODONE-ACETAMINOPHEN Inactive LC-5 LIDOCAINE 5 % CREA apply 1 time daily to affected area 2013 LC-5 LIDOCAINE 5 % CREA LIDOCAINE (ANORECTAL) In active PERCOCET 5-325 MG TAB 1 every 6 hours as needed PERCOCET 5-325 MG TAB 5028532 OXYCODONE-ACETAMINOPHEN Inactive KEFLEX 500 MG CAP 1 po qid KEFLEX 500 MG CAP 30 9114 CEPHALEXIN Inactive PROAIR HFA 108 (90 BASE) MCG/ACT AERS 2 puff q 4-6 hrs PRN 01/24 PROAIR HFA 108 (90 BASE) MCG/ACT AERS ALBUTEROL SULFATE Inactive AMOXICILLIN 875 MG TABS 1 tab by mouth twice daily 201 07/18/07 AMOXICILLIN 875 MG TABS 113568 AMOXICILLIN Inactive KEFLEX 500 MG CAP 1 po tid x 10 days KEFLEX 500 MG CAP 889444 CEPHALEXIN Inactive AMOXICILLIN 875 MG TABS 1 tab by mouth twice daily 201 07/19/27 AMOXICILLIN 875 MG TABS 775285 AMOXICILLIN Inactive AMOXICILLIN 875 MG TABS 1 tab by mouth twice daily 201 08/09/13 AMOXICILLIN 875 MG TABS 400834 AMOXICILLIN Inactive CIPRO 500 MG TAB 1 tablet by mouth twice daily CIPRO 500 MG TAB 582259 CIPROFLOXACIN HCL Inactive BACTRIM DS 800-160 MG TAB 1 tab by mouth twice daily 2 BACTRIM DS 800-160 MG TAB TRIMETHOPRIM-SULFAMETHOXAZOLE Inac tive LEVAQUIN 500 MG TABS 1 PO q day x 7 days LEVAQUIN 500 MG TABS 122929 LEVOFLOXACIN Inactive CLINDAMYCIN HCL 300 MG CAPS 1 po QID x 7 days CLINDAMYCIN HCL 300 MG CAPS 855618 CLINDAMYCIN HCL Inactive AUGMENTIN 875-125 MG TAB 1 tab by mouth twice daily with food 20 22/05/07 AUGMENTIN 875-125 MG TAB 673432 AMOXICILLIN-POT CLAVULA [place] Inactive DIFLUCAN 150 MG TAB 1 qODay x 2 doses DIFLUCAN 150 MG TAB 425644 FLUCONAZOLE Inactive PREDNISONE 20 MG TAB 2 tabs daily for 3 days, 1 t ab daily for 3 days, 1/2 tab daily for 2 days PREDNISONE 20 MG TAB 063348 PREDNISON E Inactive AUGMENTIN 875-125 MG TAB 1 tab by mouth twice daily with food 21/10/13 AUGMENTIN 875-125 MG TAB 733191 AMOXICILLIN-POT CLAVULA [place] Inactive Advance Directives Directive Description Start Date PERMISSION TO SHARE Immunizations Vaccine Administration Date Value Standard Alf cription Seasonal influenza vaccine, injectable, containing preservative, for > 3 years old (Afluria, FluLaval, Fluzone, Fluvirin, Fluarix, Agriflu(>= 18 yo)) Fluzone (>3 yrs.) [[id number]] Influenza, seasonal, inject able Seasonal influenza vaccine, injectable, preservative free, for > 3 years old (Afluria, FluLaval, Fluzone, Fluvirin, Fluarix, Agriflu(>= 18 yo)) Fluzone preservative free (>3 yrs.) [[id number]] Influenza, seasonal, injectable, preservative free Seasonal influenza vaccine, injectable, containing preservative, for > 3 years old (Afluria, FluLaval, Fluzone, Fluvirin, Fluarix, Agriflu(>= 18 yo)) Fluzone (>3 yrs.) [[id number]] Influenza, seasonal, inject able Seasonal influenza vaccine, injectable, containing preservative, for > 3 years old (Afluria, FluLaval, Fluzone, Fluvirin, Fluarix, Agriflu(>= 18 yo)) Fluzone (>3 yrs.) [[id number]] Influenza, seasonal, inject able dT (Diphtheria and [...] Panel - Chemistry sodium, serum 142 mmol/L 265-542 4963/05/12 potassium, serum 4.8 mmol/L 3.5-5.2 chloride, serum [...] .6-14.8 platelet count 291 10^3/MM^3 10*3/mm3 142-424 Office Visit: CN bladder problems - Mariah [...] negative Encounters Code Encounter Date Provider Facility CPT-45753 Level 2 Est. Patient 07:49:32 CDT Kalpesh goins MD [facility] CPT-70944 Level 3 New Patient 15:47:11 RECREATIONAL PROGRAMS DIRECTOR Bj huber MD [facility] CPT-12323 Level 4 Est. Patient 14:37:38 RECREATIONAL PROGRAMS DIRECTOR Abdirahman Rios MD [facility] CPT-20949 Level 2 Est. Patient 13:32:17 RECREATIONAL PROGRAMS DIRECTOR Kalpesh goins MD [facility] CPT-76414 Level 3 Est. Patient 17:32:57 RECREATIONAL PROGRAMS DIRECTOR Edilberto tiwari [facility] CPT-67751 Level 3 Est. Patient 17:22:33 RECREATIONAL PROGRAMS DIRECTOR Edilberto tiwari [facility] CPT-40969 Level 2 Est. Patient 16:57:09 RECREATIONAL PROGRAMS DIRECTOR Kalpesh goins MD [facility]-04713 Level 3 Est. Patient 14:03:08 RECREATIONAL PROGRAMS DIRECTOR Abdirahman Rios MD [facility] CPT-49764 Level 3 Est. Patient 18:12:34 CDT Shola Wright [facility] CPT-85352 Level 3 Est. Patient 19:34:46 CDT Shola Wright [facility] CPT-95715 Level 3 Est. Patient 14:19:37 CDT Abdirahman Rios MD [facility] CPT-93178 Level 3 Est. Patient 14:11:58 CDT Kalpesh goins MD [facility] CPT-68470 Level 3 Est. Patient 16:50:00 CDT Michelle BRADFORDP [facility] CPT-50992 Level 3 Est. Patient 17:11:32 RECREATIONAL PROGRAMS DIRECTOR Brandie bates MD PhD [facility] CPT-93306 Level 3 Est. Patient 16:31:47 RECREATIONAL PROGRAMS DIRECTOR Shola Wright [facility] CPT-07889 Level 3 Est. Patient 17:51:10 RECREATIONAL PROGRAMS DIRECTOR Abhinav Galvan MD [facility] CPT-07227 Level 4 Est. Patient 12:54:56 RECREATIONAL PROGRAMS DIRECTOR Kalpesh gonis MD [facility]-42849 Level 4 Est. Patient 12:53:56 RECREATIONAL PROGRAMS DIRECTOR Kalpesh goins MD [facility] CPT-24803 Level 3 Est. Patient 17:56:58 CDT Shola Wright [facility] CPT-12084 Level 3 Est. Patient 14:26:20 CDT Janak butcher [facility] CPT-40419 Level 3 Est. Patient 09:38:41 CDT Shola Wright [facility] CPT-85785 Level 3 Est. Patient 14:45:26 CDT Edilberto tiwari [facility] CPT-33031 Level 3 Est. Patient 10:51:33 [facility] Level 3 Est. Patient 11:57:55 RECREATIONAL PROGRAMS DIRECTOR Shola Wright [facility] CPT-82647 Level 3 Est. Patient 09:53:33 RECREATIONAL PROGRAMS DIRECTOR Edilberto tiwari [facility] CPT-65069 Level 3 Est. Patient 14:42:54 RECREATIONAL PROGRAMS DIRECTOR Abhinav Galvan MD [facility] CPT-65328 Level 3 Est. Patient 15:10:02 CDT Janak MCGILL [facility] CPT-34235 Level 3 Est. Patient 15:20:20 CDT Theo dennis MD [facility] CPT-17804 Level 2 Est. Patient 14:08:57 CDT Kalpesh goins MD [facility] CPT-77860 Level 3 Est. Patient 13:56:19 CDT Abdirahman Rios MD [facility] CPT-11951 Level 3 Est. Patient 13:59:37 CDT Abdirahman Rios MD [facility] CPT-07310 Level 2 Est. Patient 14:44:59 CDT Kalpesh goins MD [facility] CPT-27013 Level 3 Est. Patient 06:06:23 CDT Edilberto tiwari DO [facility] CPT-83139 Level 3 Est. Patient 15:23:54 CDT Abdirahman Rios MD [facility] CPT-48918 Level 3 Est. Patient 15:43:49 CDT Abdirahman Rios MD [facility] CPT-98171 Level 3 Est. Patient 12:46:47 RECREATIONAL PROGRAMS DIRECTOR Abdirahman Rios MD [facility] CPT-09096 Level 3 Est. Patient 08:13:35 RECREATIONAL PROGRAMS DIRECTOR Abdirahman Rios MD [facility] CPT-45710 Level 2 Est. Patient 09:36:42 RECREATIONAL PROGRAMS DIRECTOR Abdirahman Rios MD [facility] CPT-52300 Level 3 Est. Patient 10:56:43 CDT Abdirahman Rios MD [facility] CPT-44003 Level 3 Est. Patient 18:24:52 CDT Abdirahman Rios MD [facility] CPT-45901 Level 3 Est. Patient 13:27:22 CDT Abdirahman Rios MD [facility] Procedures Code Procedure Name Date Entry Date Standard Desc ription CPT-75913 Postop F/U Visit 15:02:46 CDT CPT-33953 Postop F/U Visit 11:29:00 RECREATIONAL PROGRAMS DIRECTOR CPT-J0696 Rocephin 1000 mg (Ceftriaxone) 17:22:33 RECREATIONAL PROGRAMS DIRECTOR CPT-15500 Postop F/U Visit 18:41:07 RECREATIONAL PROGRAMS DIRECTOR CPT-40958 Postop F/U Visit 08:19:08 RECREATIONAL PROGRAMS DIRECTOR CPT-47109 Immunization Single Admin 16:41:53 CDT 2013 CPT-42233 Fluzone Quadrivalent Intramuscular Suspe nsion 0.5 ML 16:41:53 CDT CPT-OV Office Visit 16:39:18 CDT CPT-OV Office Visit 16:16:36 CDT CPT-OV Office Visit 15:34:48 CDT CPT-34040 Postop F/U Visit 14:50:12 CDT CPT-41337 Postop F/U Visit 14:41:10 CDT CPT-32165 Venipuncture Draw Fee 11:38:04 RECREATIONAL PROGRAMS DIRECTOR CPT-02057 Postop F/U Visit 19:02:59 RECREATIONAL PROGRAMS DIRECTOR CPT-80948 Postop F/U Visit 12:04:54 RECREATIONAL PROGRAMS DIRECTOR CPT-38300 Administration single or combination vac cine inc oral 15:56:43 CDT CPT-03116 Influenza split virus > age 3 15:56:43 CDT CPT-73608 Hand comp min 3V 14:25:19 CDT CPT-31127 Postop F/U Visit 21:40:51 CDT CPT-97286 Postop F/U Visit 10:58:43 CDT CPT-14065 Administration single or combination vac cine inc oral 12:33:54 RECREATIONAL PROGRAMS DIRECTOR CPT-86075 Influenza Preservative Free split virus >age 3 12:33:54 RECREATIONAL PROGRAMS DIRECTOR CPT-66504 Administration single or combination vac cine inc oral 09:30:51 CDT CPT-66783 Influenza split virus > age 3 09:30:51 CDT CPT-55270 Postop F/U Visit 15:14:53 CDT CPT-35164 Postop F/U Visit 13:50:14 CDT CPT-42840 Postop F/U Visit 13:34:52 CDT CPT-OV Office Visit 16:55:03 CDT CPT-68016 [place] cervix w bx ECC 13:32:50 CDT 10/19 CPT-J1885 Toradol 60 mg (Ketorolac) 15:31:59 CDT 2011 CPT-J1885 Toradol 60 mg (Ketorolac) 15:23:54 CDT 2011 CPT-25295 Visit 11:34:37 RECREATIONAL PROGRAMS DIRECTOR CPT-95327 Visit 10:52:39 RECREATIONAL PROGRAMS DIRECTOR CPT-52418 Visit 10:12:02 RECREATIONAL PROGRAMS DIRECTOR CPT-41756 Visit 11:22:43 RECREATIONAL PROGRAMS DIRECTOR CPT-72592 Visit 11:24:12 RECREATIONAL PROGRAMS DIRECTOR CPT-19616 Visit 10:47:05 RECREATIONAL PROGRAMS DIRECTOR CPT-OV Office Visit 10:26:16 RECREATIONAL PROGRAMS DIRECTOR CPT-OV Office Visit 15:34:31 RECREATIONAL PROGRAMS DIRECTOR CPT-66314 Visit 10:42:08 RECREATIONAL PROGRAMS DIRECTOR CPT-19170 Visit 10:52:45 RECREATIONAL 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
--- OUTSIDE RECORDS SUMMARY | 2020-01-18 16:28 | XMS REPORT | Clinical Summary ---
Author Author Admin, Jeri Rashid Organization [facility] Address Unknown Phone Unavailable Allergies, Adverse Reactions, [...] unspecified SINUSITIS, ACUTE 461.9 Active Rajni Alcazar ADVERTISING AGENCY MANAGER Acute sinusitis, unspecified BACK PAIN 724.5 Resolved [...] specified as infective URETHRITIS 597.80 Resolved Good Jluian MD Urethritis, unspecified ABSCESS 682.9 Resolved Good [...] 6 hours as needed for pain HYDROCODONE-ACETAMINOPHEN 10715823076 No Longer Active Kalpesh Dong MD Active PERCOCET 10-325 MG ORAL TABS 1 every 4 hous as needed OXYCODONE-ACETAMINOPHEN 76589890024 Active Abdirahman Rios MD Active GLYDO 2 % EXT GEL apply to painful areas as needed LIDOCAINE HCL 55248001680 Active Kalpesh Dong MD Active LC-4 LIDOCAINE 4 % EXT CREA apply to painful area every 12 h ours or as needed LIDOCAINE 06446201346 Active Kalpesh Dong MD Active AUGMENTIN 875-125 MG TAB 1 tab by mouth twice daily with food 20 23/05/16 AMOXICILLIN-POT CLAVULANATE 54953025815 No Longer Active Lizeth hi Yokum ADVERTISING AGENCY MANAGER 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 FLUTICASONE PROPIONATE 12226918807 No Longer Ac tive Rajni Yokum ADVERTISING AGENCY MANAGER Active PERCOCET 10-325 MG ORAL TABS take 1 tab by mouth q 4hours as needed for pain OXYCODONE-ACETAMINOPHEN 94923243758 No Longer Active Rajni Yokum ADVERTISING AGENCY MANAGER Active PERCOCET 10-325 MG ORAL TABS one every 6 hours prn pain OXYCODONE-ACETAMINOPHEN 73281051586 No Longer Active Rajni Yokum ADVERTISING AGENCY MANAGER Active IBUPROFEN 800 MG TABS 1 tab po tid, with food I BUPROFEN 27872055544 Active Jillina Joyzell ADVERTISING AGENCY MANAGER Active PERCOCET 10-325 MG TABS 1 tablet every 8 hours as needed for pain 2 OXYCODONE-ACETAMINOPHEN 31882416635 Active Rajni Yokum ADVERTISING AGENCY MANAGER Active DICLOFENAC SODIUM 50 MG TBEC 1 tablet by mouth four times da tom PRN Pain DICLOFENAC SODIUM 84036672228 No Longer Active Rajni Yokum ADVERTISING AGENCY MANAGER Active VIIBRYD 10 & 20 & 40 MG KIT 1 po qd as directed 07/24 VILAZODONE HCL 55546944987 No Longer Active Rajni Yokum ADVERTISING AGENCY MANAGER Active ONDANSETRON 4 MG TBDP 1 q4h PRN nausea ONDANSET KELBY 72662093148 No Longer Active Rajni Yokum ADVERTISING AGENCY MANAGER Active PERCOCET 10-325 MG TABS 1 tablet every 8 hours as needed for antonia n OXYCODONE-ACETAMINOPHEN 74873248284 No Longer Active Rajni cox ADVERTISING AGENCY MANAGER Active HYDROCODONE-ACETAMINOPHEN 5-325 MG TABS 1 po TID PRN Pain 9 HYDROCODONE-ACETAMINOPHEN 56007664973 No Longer Active Abdirahman Rios MD Active LC-4 LIDOCAINE 4 % EXT CREA apply q 6 hours, prn LIDOCAINE 30648381105 Active Hira Moser ADVERTISING AGENCY MANAGER Active [id number] 50-325-40 MG ORAL CAPS 1-2 po TID [place] N Headache [id number] 98916074797 No Longer Act krishna Kalpesh Dong MD Active ALPRAZOLAM 0.5 MG TABS 1 po BID PRN Anxiety ALP RAZOLAM 28384137486 No Longer Active Kalpesh Dong MD Active TRAZODONE HCL 100 MG TAB 0.5 to 1 po qHS PRN Insomnia TRAZODONE HCL 16696860498 No Longer Active Kalpesh Dong MD Activ e HYDROCODONE-ACETAMINOPHEN 5-325 MG TABS 1 po q6hr PRN Pain 04/09 HYDROCODONE-ACETAMINOPHEN 08111577175 No Longer Active Kalpesh Dong MD Active CYMBALTA 30 MG CPEP 1 cap by mouth daily DULOXE CLEO HCL 50185742611 No Longer Active Abdirahman Rios MD Active IBUPROFEN 600 MG ORAL TABS 1 by mouth twice a day 2014 IBUPROFEN 69543575266 No Longer Active Abdirahman Rios MD Activ e PERCOCET 5-325 MG TAB 1 tab po q 6 hours, prn severe pain 1 OXYCODONE-ACETAMINOPHEN 83882292108 No Longer Active Abdirahman Rios MD Active SPRINTEC 28 0.25-35 MG-MCG TABS 1 pill by mouth daily for bi rth control NORGESTIMATE-ETH ESTRADIOL 63665423132 No Longer Acti ve Hira Moser ADVERTISING AGENCY MANAGER Active CYCLOBENZAPRINE HCL 10 MG TABS 1 tablet by mouth three times daily as needed for muscle spasm/pain CYCLOBENZAPRINE HCL 94697219989 No Longer Active Hira Moser ADVERTISING AGENCY MANAGER Active HYDROCODONE-ACETAMINOPHEN 5-325 MG TABS 1 po q6hr PRN Pain 03/09 HYDROCODONE-ACETAMINOPHEN 13142842122 No Longer Active Matthewllina Karmen l ADVERTISING AGENCY MANAGER Active AUGMENTIN 500-125 MG ORAL TABS 1 by mouth twice a day AMOXICILLIN-POT CLAVULANATE 31172988633 No Longer Active Karenina Shanti ADVERTISING AGENCY MANAGER Active DICLOFENAC SODIUM 50 MG TBEC 1 tablet by mouth four times da tom PRN Pain DICLOFENAC SODIUM 58604618623 No Longer Active Karenin mitch Moser ADVERTISING AGENCY MANAGER Active PROMETHAZINE HCL 25 MG TABS 1 four times a day as needed for nausea/vomiting PROMETHAZINE HCL 34462125470 No Longer Active Abdirahman Rios MD Active HYDROCODONE-ACETAMINOPHEN 5-325 MG TABS 1 tab by mouth every 6 hours as needed PRN Pain HYDROCODONE-ACETAMINOPHEN 08066655074 No Longer Active Abdirahman Rios MD Active GEMFIBROZIL 600 MG TABS 1 po BID GEMFIBROZIL 66216356 005 Active Abdirahman Rios MD Active PERCOCET 5-325 MG ORAL TABS 1 every 6 hours as needed OXYCODONE-ACETAMINOPHEN 53026211720 No Longer Active Abdirahman Rios MD Active PERCOCET 5-325 MG TAB 1 tab po q 6 -8 hours, prn for severe pain OXYCODONE-ACETAMINOPHEN 09000140383 No Longer Active Abdirahman Rios MD Active HYDROCODONE-ACETAMINOPHEN 5-325 MG TABS 1 po q6hr PRN pain 06/30 HYDROCODONE-ACETAMINOPHEN 43661320693 No Longer Active Hira roman APRN Active GLUCOPHAGE 500 MG ORAL TABS one by mouth 3 times a day METFORMIN HCL 28821241210 No Longer Active Hira Moser ADVERTISING AGENCY MANAGER Ac tive PERCOCET 10-325 MG TABS 1 tab by mouth every 6 hours , use sparingly for severe pain OXYCODONE-ACETAMINOPHEN 56284499742 No Longer A ctive Abdirahmna Rios MD Active EMLA 2.5-2.5 % EXT CREA apply to skin lesion q 6 hours, prn 2014 LIDOCAINE-PRILOCAINE 22606103082 No Longer Active Abdirahman Rios MD Active PERCOCET 10-325 MG ORAL TABS 1 every 4 hours as needed OXYCODONE-ACETAMINOPHEN 18125687920 No Longer Active Abdirahman Rios MD Active AUGMENTIN 875-125 MG TAB 1 tab by mouth twice daily with food 20 21/10/13 AMOXICILLIN-POT CLAVULANATE 53620158836 No Longer Active Ursula Moser APRN Active PROAIR HFA 108 (90 BASE) MCG/ACT AERS 2 puff q 4-6 hrs PRN 01/24 ALBUTEROL SULFATE 45894573668 No Longer Active Kalpesh Dong MD Active PREDNISONE 20 MG TAB 2 tabs daily for 3 days, 1 t ab daily for 3 days, 1/2 tab daily for 2 days PREDNISONE 90397079009 No Longer Active Abdirahman Rios MD Active KEFLEX 500 MG CAP 1 po qid CEPHALEXIN 163995893 20 No Longer Active Kalpesh Dong MD Active PERCOCET 5-325 MG TAB 1 every 6 hours as needed OXYCODONE-ACETAMINOPHEN 85826196547 No Longer Active Shola MCGILL Active LC-5 LIDOCAINE 5 % CREA apply 1 time daily to affected area 2013 LIDOCAINE (ANORECTAL) 10898380066 No Longer Active Hira muniz APRN Active HYDROCODONE-ACETAMINOPHEN 10-325 MG TABS 1 by mouth ev chaka 8 hours as needed for pain HYDROCODONE-ACETAMINOPHEN 94993349412 No Longer Active Jillina Frazell ADVERTISING AGENCY MANAGER Active LORATADINE 10 MG TABS 1 tablet by mouth daily L ORATADINE 53446908073 No Longer Active Jillina Frazell ADVERTISING AGENCY MANAGER Active DIFLUCAN 150 MG TAB 1 qODay x 2 doses FLUCONAZO LE 76807431150 No Longer Active Jillina Frazell ADVERTISING AGENCY MANAGER Active CYCLOBENZAPRINE HCL 10 MG TABS 1/2 - 1 tab PO tid PRN back p ain, muscle spasm CYCLOBENZAPRINE HCL 75772114601 No Longer Active Karen siri Frazell ADVERTISING AGENCY MANAGER Active AUGMENTIN 875-125 MG TAB 1 tab by mouth twice daily with food 20 22/05/07 AMOXICILLIN-POT CLAVULANATE 40460384433 No Longer Active Loida Rios MD Active MOBIC 15 MG TABS 1 tab daily MELOXICAM 028190431 14 No Longer Active Abdirahman Rios MD Active PERCOCET 7.5-325 MG TABS 1 PO tid PRN pain OXYCODONE-ACETAMINOPHEN 35389515232 No Longer Active Abdirahman Rios MD Active LIDODERM 5 % PTCH One patch to painful area [place] N. On for 12 hrs, off for 12 hrs. LIDOCAINE 61764315268 No Longer Active Abdirahman Rios MD Active PERCOCET 7.5-325 MG TABS 1 PO q 8 hrs PRN pain OXYCODONE-ACETAMINOPHEN 78987655930 No Longer Active Shola MCGILL Active HYDROCODONE-ACETAMINOPHEN 7.5-325 MG TABS 1 by mouth e very 6 hours as needed for pain HYDROCODONE-ACETAMINOPHEN 47059645536 No Longer Active Good Julian MD Active CLINDAMYCIN HCL 300 MG CAPS 1 po QID x 7 days CLINDAMYCIN HCL 75554320886 No Longer Active Abdirahman Rios MD Activ e BACTRIM DS 800-160 MG TABS 1 po BID x 7 days 5 SULFAMETHOXAZOLE-TRIMETHOPRIM 99199795785 No Longer Active Abdirahman Rios MD Active ENDOCET 10-325 MG TABS 1 q 6 hr prn OXYCODONE-ACETAMINOPHEN 83894710680 No Longer Active Abdirahman Rios MD Active IBUPROFEN 800 MG TABS 1 tid prn IBUPROFEN 784934 97634 No Longer Active Abdirahman Rios MD Active BACTRIM DS 800-160 MG TABS by mouth twice a day 11/05 SULFAMETHOXAZOLE-TRIMETHOPRIM 85658802293 No Longer Active Good Julian MD Active HYDROCODONE-ACETAMINOPHEN 7.5-325 MG TABS 1 four times a day as needed for pain HYDROCODONE-ACETAMINOPHEN 10646488905 No Longer Activ e Good Julian MD Active KEFLEX 500 MG CAP 1 tab po tid CEPHALEXIN 786259 15322 No Longer Active Hira Moser APRN Active IBUPROFEN 800 MG TAB 1 pill three times daily as needed for pain IBUPROFEN 50232471048 No Longer Active Kalpesh Dong MD Active PROMETHAZINE-CODEINE 6.25-10 MG/5ML SYRP 1 tsp every 6 hrs prn c ou PROMETHAZINE-CODEINE 43661729351 No Longer Active Kalpesh Carr Active HYDROCODONE-ACETAMINOPHEN 5-325 MG TABS 1 tab by mouth every 6 hours as needed HYDROCODONE-ACETAMINOPHEN 53926901207 No Longer Activ e Shola MCGILL Active CEPHALEXIN 500 MG CAPS 1 PO bid x 7 days CEPHAL EXIN 86133653798 No Longer Active Shola MCGILL Active BACTRIM DS 800-160 MG TAB 1 tab by mouth twice daily 2 TRIMETHOPRIM-SULFAMETHOXAZOLE 30142892287 No Longer Active Kalpesh Dong MD Active HYDROCODONE-ACETAMINOPHEN 5-325 MG TABS 1 PO tid PRN pain 5 HYDROCODONE-ACETAMINOPHEN 00146914177 No Longer Active Abhinav Galvan MD Active IMPLANON 68 MG IMPL IMPLANTED IN LEFT ARM ETONO GESTREL 74073537253 No Longer Active Hira Moser APRN Active AMOXICILLIN 500 MG TABS 2 tabs PO bid x 10 d AM OXICILLIN 49543731379 No Longer Active Kalpesh Dong MD Active LEVAQUIN 500 MG TABS 1 PO q day x 7 days LEVOFL OXACIN 80865624672 No Longer Active Shola MCGILL Active AMITRIPTYLINE HCL 25 MG TAB 1 tab by mouth daily 60 minutes before bedtime AMITRIPTYLINE HCL 15599398689 No Longer Active Shola MCGILL Active LORTAB 5 5-500 MG TABS 1/2 to 1 tablet by mouth go ry 6 hours as needed for pain HYDROCODONE-ACETAMINOPHEN 10268062947 No Longer Active Shola MCGILL Active CEPHALEXIN 500 MG TABS Take one by mouth four times daily, morning, noon, early evening and bedtime. CEPHALEXIN 74914565257 No Long er Active Hira Moser APRN Active TYLENOL/CODEINE #3 300-30 MG TAB 1-2 po q6hr PRN Pain ACETAMINOPHEN-CODEINE 73647422061 No Longer Active Edilberto Marino DO Active PRISTIQ 50 MG [id number] 1 po qd DESVENLAFAXI NE SUCCINATE 45943833306 No Longer Active Edilberto Marino DO Active PENICILLIN V POTASSIUM 500 MG TAB 1 four times a day 2 PENICILLIN V POTASSIUM 76396440716 No Longer Active Edilberto Marino DO Active DOXYCYCLINE HYCLATE 100 MG CAPS Take one (1) tablet by mouth twice a day DOXYCYCLINE HYCLATE 64559040696 No Longer Active Ronnie Galvan MD Active HYDROCODONE-ACETAMINOPHEN 5-325 MG TABS 1 po q 6hr PRN Pain 2011 HYDROCODONE-ACETAMINOPHEN 56295907828 No Longer Active Patri joan Perez RN Active BACTRIM DS 800-160 MG TAB 1 tab by mouth twice daily 2 TRIMETHOPRIM-SULFAMETHOXAZOLE 43970183599 No Longer Active Kalpesh Dong MD Active LORTAB 5 5-500 MG TABS 1/2 to 1 tablet by mouth go ry 4 hours as needed for pain HYDROCODONE-ACETAMINOPHEN 60087757011 No Longer Active Kalpesh Dong MD Active GENERESS FE 0.8-25 MG-MCG CHEW Take one by mouth daily NORETHIN-ETH ESTRADIOL-FE 08161445330 No Longer Active Kalpesh Dong MD Active HYDROCODONE-ACETAMINOPHEN 7.5-500 MG TABS 1-2 every 4 hours as needed HYDROCODONE-ACETAMINOPHEN 33687516643 No Longer Activ e Kalpesh Dong MD Active FERROUS SULFATE 325 (65 FE) MG TABS 1 tablet by mouth twice yung y FERROUS SULFATE 82735969436 No Longer Active Kalpesh Dong MD Active IBUPROFEN 600 MG TAB 1 po q6-8hr PRN IBUPROFEN 49462831411 No Longer Active Kalpesh Dong MD Active SPIRONOLACTONE 25 MG TAB 1 tablet by mouth daily 01/22 SPIRONOLACTONE 99259312815 No Longer Active Kalpesh Dong MD Acti ve HYDROCODONE-ACETAMINOPHEN 7.5-325 MG TABS 1 po QID PRN Pain 2011 HYDROCODONE-ACETAMINOPHEN 84408847437 No Longer Active Kalpesh Dong MD Active CLINDAMYCIN HCL 300 MG CAPS 1 po q6hr x 7 days CLINDAMYCIN HCL 68041495749 No Longer Active Edilberto Marino DO Active PREDNISONE 20 MG TAB 2 tabs daily for 4 days, 1 t ab daily for 4 days, 1/2 tab daily for 4 days PREDNISONE 14578299224 No Longer Active Edilberto Marino DO Active PERCOCET 5-325 MG TABS 1 tablet by mouth every 6 hours as ne eded for pain OXYCODONE-ACETAMINOPHEN 98136634357 No Longer Active Abdirahman Rios MD Active VITAMINS TABS Take one by mouth daily MV & MIN W/FE-FA TABS 10975663077 No Longer Active Abdirahman Rios MD Active LUIS 3-0.02 MG TABS 1 tablet by mouth daily as directed DROSPIRENONE-ETHINYL ESTRADIOL 83215270257 No Longer Active Abdirahman Rios MD Active LORATADINE 10 MG TABS 1 tablet by mouth daily L ORATADINE 54553913729 No Longer Active Kalpesh Dong MD Active HYDROCODONE-ACETAMINOPHEN 5-325 MG TABS 1 po q 6hr PRN Pain 2010 HYDROCODONE-ACETAMINOPHEN 40225508561 No Longer Active Edilberto Marino DO Active BACTRIM DS 800-160 MG TAB 1 tab by mouth twice daily 2 TRIMETHOPRIM-SULFAMETHOXAZOLE 87451043652 No Longer Active Abdirahman Rios MD Active 28-0.8 MG TABS Take one by mouth daily 09/20 VIT-FE FUMARATE-FA 22441865233 No Longer Active Abdirahman Rios MD Active CIPRO 500 MG TAB 1 tablet by mouth twice daily CIPROFLOXACIN HCL 33313198507 No Longer Active Abdirahman Rios MD Active BENADRYL 25 MG CAP 1 po q8hr PRN Congestion DIPHENHYDRAMINE HCL 33504353057 No Longer Active Abdirahman Rios MD Active ZOLOFT 50 MG TAB 1 po qd SERTRALINE HCL 316267 04231 No Longer Active Abdirahman Rios MD Active AMOXICILLIN 875 MG TABS 1 tab by mouth twice daily 201 08/09/13 AMOXICILLIN 07311878217 No Longer Active Abdirahman Rios MD Activ e AMOXICILLIN 875 MG TABS 1 tab by mouth twice daily 201 07/19/27 AMOXICILLIN 28809799711 No Longer Active Abdirahman Rios MD Activ e BACTRIM DS 800-160 MG TAB 2 tab by mouth twice daily 2 TRIMETHOPRIM-SULFAMETHOXAZOLE 24325885125 No Longer Active Abdirahman Rios MD Active KEFLEX 500 MG CAP 1 po tid x 10 days CEPHALEXIN 56559493521 No Longer Active Abdirahman Rios MD Active AMOXICILLIN 875 MG TABS 1 tab by mouth twice daily 201 07/18/07 AMOXICILLIN 41229890076 No Longer Active Abdirahman Rios MD Activ e BACTRIM DS 800-160 MG TAB 2 tab by mouth twice daily 2 BACTRIM DS 800-160 MG TAB 941893 TRIMETHOPRIM-SULFAMETHOXAZOLE Inactive ZOLOFT 50 MG TAB 1 po qd ZOLOFT 50 MG TAB 3129 41 SERTRALINE HCL Inactive BENADRYL 25 MG CAP 1 po q8hr PRN Congestion BENADRYL 25 MG CAP 5311433 DIPHENHYDRAMINE HCL Inactive 28-0.8 MG TABS Take one by mouth daily 09/20 28-0.8 MG TABS VIT-FE FUMARATE-FA Inactive HYDROCODONE-ACETAMINOPHEN 5-325 MG TABS 1 po q 6hr PRN Pain 2010 HYDROCODONE-ACETAMINOPHEN 5-325 MG TABS 203203 HYDROCODONE-ACETAMINOPHEN Inactive LORATADINE 10 MG TABS 1 tablet by mouth daily LORATADINE 10 MG TABS 013928 LORATADINE Inactive LUIS 3-0.02 MG TABS 1 tablet by mouth daily as directed LUIS 3-0.02 MG TABS 886395 DROSPIRENONE-ETHINYL ESTRADIOL Inactive VITAMINS TABS Take one by mouth daily VITAMINS TABS MV & MIN W/FE-FA TABS Inactive PERCOCET 5-325 MG TABS 1 tablet by mouth every 6 hours as ne eded for pain PERCOCET 5-325 MG TABS 4738776 OXYCODONE-ACETAMIN OPHEN Inactive PREDNISONE 20 MG TAB 2 tabs daily for 4 days, 1 t ab daily for 4 days, 1/2 tab daily for 4 days PREDNISONE 20 MG TAB 679773 PREDNISON E Inactive CLINDAMYCIN HCL 300 MG CAPS 1 po q6hr x 7 days CLINDAMYCIN HCL 300 MG CAPS 455002 CLINDAMYCIN HCL Inactive HYDROCODONE-ACETAMINOPHEN 7.5-325 MG TABS 1 po QID PRN Pain 2011 HYDROCODONE-ACETAMINOPHEN 7.5-325 MG TABS 332143 HYDROCODONE-ACETAMINOPHEN Inactive SPIRONOLACTONE 25 MG TAB 1 tablet by mouth daily 01/22 SPIRONOLACTONE 25 MG TAB 379269 SPIRONOLACTONE Inactive IBUPROFEN 600 MG TAB 1 po q6-8hr PRN IBUPROFEN 600 MG TAB 829861 IBUPROFEN Inactive FERROUS SULFATE 325 (65 FE) MG TABS 1 tablet by mouth twice yung y FERROUS SULFATE 325 (65 FE) MG TABS 133151 FERROUS SULF ATE Inactive HYDROCODONE-ACETAMINOPHEN 7.5-500 MG TABS 1-2 every 4 hours as needed HYDROCODONE-ACETAMINOPHEN 7.5-500 MG TABS HYDROCODONE-ACETAMINOPHEN Inactive GENERESS FE 0.8-25 MG-MCG CHEW Take one by mouth daily GENERESS FE 0.8-25 MG-MCG CHEW 7226209 NORETHIN-ETH ESTRADIOL-FE Inactive LORTAB 5 5-500 MG TABS 1/2 to 1 tablet by mouth go ry 4 hours as needed for pain LORTAB 5 5-500 MG TABS HYDROCODONE-A CETAMINOPHEN Inactive BACTRIM DS 800-160 MG TAB 1 tab by mouth twice daily 2 BACTRIM DS 800-160 MG TAB 440400 TRIMETHOPRIM-SULFAMETHOXAZOLE Inac tive HYDROCODONE-ACETAMINOPHEN 5-325 MG TABS 1 po q 6hr PRN Pain 2011 HYDROCODONE-ACETAMINOPHEN 5-325 MG TABS 124506 HYDROCODONE-ACETAMINOPHEN Inactive DOXYCYCLINE HYCLATE 100 MG CAPS Take one (1) tablet by mouth twice a day DOXYCYCLINE HYCLATE 100 MG CAPS 2135678 DOXYCYCLINE HYCLATE Inactive PENICILLIN V POTASSIUM 500 MG TAB 1 four times a day 2 PENICILLIN V POTASSIUM 500 MG TAB 604416 PENICILLIN V POTASSIUM Siri ctive PRISTIQ 50 MG [id number] 1 po qd PRISTIQ 50 MG [id number] DESVENLAFAXINE SUCCINATE Inactive TYLENOL/CODEINE #3 300-30 MG TAB 1-2 po q6hr PRN Pain TYLENOL/CODEINE #3 300-30 MG TAB 699449 ACETAMINOPHEN-CODEINE Inact krishna CEPHALEXIN 500 MG TABS Take one by mouth four times daily, morning, noon, early evening and bedtime. CEPHALEXIN 500 MG TABS 002727 CEPHALEXIN Inactive LORTAB 5 5-500 MG TABS 1/2 to 1 tablet by mouth go ry 6 hours as needed for pain LORTAB 5 5-500 MG TABS HYDROCODONE-A CETAMINOPHEN Inactive AMITRIPTYLINE HCL 25 MG TAB 1 tab by mouth daily 60 minutes before bedtime AMITRIPTYLINE HCL 25 MG TAB 466629 AMITRIPTYLINE HCL Inactive AMOXICILLIN 500 MG TABS 2 tabs PO bid x 10 d 7 AMOXICILLIN 500 MG TABS 214098 AMOXICILLIN Inactive IMPLANON 68 MG IMPL IMPLANTED IN LEFT ARM IMPLANON 68 MG IMPL ETONOGESTREL Inactive HYDROCODONE-ACETAMINOPHEN 5-325 MG TABS 1 PO tid PRN pain 5 HYDROCODONE-ACETAMINOPHEN 5-325 MG TABS 379122 HYDROCODONE-ACETAMIN OPHEN Inactive BACTRIM DS 800-160 MG TAB 1 tab by mouth twice daily 2 BACTRIM DS 800-160 MG TAB 964045 TRIMETHOPRIM-SULFAMETHOXAZOLE Inac tive CEPHALEXIN 500 MG CAPS 1 PO bid x 7 days CEPHALEXIN 500 MG CAPS 934477 CEPHALEXIN Inactive HYDROCODONE-ACETAMINOPHEN 5-325 MG TABS 1 tab by mouth every 6 hours as needed HYDROCODONE-ACETAMINOPHEN 5-325 MG TABS 514225 HYDROCODONE-ACETAMINOPHEN Inactive PROMETHAZINE-CODEINE 6.25-10 MG/5ML SYRP 1 tsp every 6 hrs prn c ough PROMETHAZINE-CODEINE 6.25-10 MG/5ML SYRP 796683 PROMETH AZINE-CODEINE Inactive IBUPROFEN 800 MG TAB 1 pill three times daily as needed for pain IBUPROFEN 800 MG TAB 619653 IBUPROFEN Inactive KEFLEX 500 MG CAP 1 tab po tid KEFLEX 500 MG CAP 580476 CEPHALEXIN Inactive HYDROCODONE-ACETAMINOPHEN 7.5-325 MG TABS 1 four times a day as needed for pain HYDROCODONE-ACETAMINOPHEN 7.5-325 MG TABS 044089 HYDROCODONE-ACETAMINOPHEN Inactive BACTRIM DS 800-160 MG TABS by mouth twice a day 11/05 BACTRIM DS 800-160 MG TABS 669235 SULFAMETHOXAZOLE-TRIMETHOPRIM Inactive IBUPROFEN 800 MG TABS 1 tid prn IBUPROFEN 800 MG TABS 295444 IBUPROFEN Inactive ENDOCET 10-325 MG TABS 1 q 6 hr prn ENDOC ET 10-325 MG TABS 8515660 OXYCODONE-ACETAMINOPHEN Inactive HYDROCODONE-ACETAMINOPHEN 7.5-325 MG TABS 1 by mouth e very 6 hours as needed for pain HYDROCODONE-ACETAMINOPHEN 7.5-325 MG TABS 162585 HYDROCODONE-ACETAMINOPHEN Inactive PERCOCET 7.5-325 MG TABS 1 PO q 8 hrs PRN pain PERCOCET 7.5-325 MG TABS 1463080 OXYCODONE-ACETAMINOPHEN Inactive LIDODERM 5 % PTCH One patch to painful area [place] N. On for 12 hrs, off for 12 hrs. LIDODERM 5 % [facility] 9748317 LIDOCAINE Inactiv e PERCOCET 7.5-325 MG TABS 1 PO tid PRN pain PERCOCET 7.5- 325 MG TABS 2838971 OXYCODONE-ACETAMINOPHEN Inactive MOBIC 15 MG TABS 1 tab daily MOBIC 15 MG TABS 15 2695 MELOXICAM Inactive CYCLOBENZAPRINE HCL 10 MG TABS 1/2 - 1 tab PO tid PRN back p ain, muscle spasm CYCLOBENZAPRINE HCL 10 MG TABS 423306 CYCLOBENZA JOSEPH HCL Inactive LORATADINE 10 MG TABS 1 tablet by mouth daily LORATADINE 10 MG TABS 053084 LORATADINE Inactive HYDROCODONE-ACETAMINOPHEN 10-325 MG TABS 1 by mouth ev chaka 8 hours as needed for pain HYDROCODONE-ACETAMINOPHEN 10-325 MG TABS 489387 HYDROCODONE-ACETAMINOPHEN Inactive LC-5 LIDOCAINE 5 % CREA apply 1 time daily to affected area 2013 LC-5 LIDOCAINE 5 % CREA 4179477 LIDOCAINE (ANORECTAL) In active PERCOCET 5-325 MG TAB 1 every 6 hours as needed PERCOCET 5-325 MG TAB 7963462 OXYCODONE-ACETAMINOPHEN Inactive KEFLEX 500 MG CAP 1 po qid KEFLEX 500 MG CAP 30 9114 CEPHALEXIN Inactive PROAIR HFA 108 (90 BASE) MCG/ACT AERS 2 puff q 4-6 hrs PRN 01/24 PROAIR HFA 108 (90 BASE) MCG/ACT AERS ALBUTEROL SULFATE Inactive PERCOCET 10-325 MG ORAL TABS 1 every 4 hours as needed PERCOCET 10-325 MG ORAL TABS 1522633 OXYCODONE-ACETAMINOPHEN Inactiv e EMLA 2.5-2.5 % EXT CREA apply to skin lesion q 6 hours, prn 2014 EMLA 2.5-2.5 % EXT CREA 229580 LIDOCAINE-PRILOCAINE Siri ctive PERCOCET 10-325 MG TABS 1 tab by mouth every 6 hours , use sparingly for severe pain PERCOCET 10-325 MG TABS 7875235 OXYCODONE-ACETAMINOPHEN Inactive GLUCOPHAGE 500 MG ORAL TABS one by mouth 3 times a day GLUCOPHAGE 500 MG ORAL TABS 346864 METFORMIN HCL Inactive HYDROCODONE-ACETAMINOPHEN 5-325 MG TABS 1 po q6hr PRN pain 06/30 HYDROCODONE-ACETAMINOPHEN 5-325 MG TABS 979842 HYDROCOD ONE-ACETAMINOPHEN Inactive PERCOCET 5-325 MG TAB 1 tab po q 6 -8 hours, prn for severe pain PERCOCET 5-325 MG TAB 9089370 OXYCODONE-ACETAMINOPHEN In active PERCOCET 5-325 MG ORAL TABS 1 every 6 hours as needed PERCOCET 5-325 MG ORAL TABS 8439343 OXYCODONE-ACETAMINOPHEN Inactive DICLOFENAC SODIUM 50 MG TBEC 1 tablet by mouth four times da tom PRN Pain DICLOFENAC SODIUM 50 MG TBEC 449441 DICLOFENAC S ODIUM Inactive AUGMENTIN 500-125 MG ORAL TABS 1 by mouth twice a day AUGMENTIN 500-125 MG ORAL TABS 544826 AMOXICILLIN-POT CLAVULANATE I nactive HYDROCODONE-ACETAMINOPHEN 5-325 MG TABS 1 po q6hr PRN Pain 03/09 HYDROCODONE-ACETAMINOPHEN 5-325 MG TABS [id number] HYDROCOD ONE-ACETAMINOPHEN Inactive CYCLOBENZAPRINE HCL 10 MG TABS 1 tablet by mouth three times daily as needed for muscle spasm/pain CYCLOBENZAPRINE HCL 10 MG TABS [id number] CYCLOBENZAPRINE HCL Inactive SPRINTEC 28 0.25-35 MG-MCG TABS 1 pill by mouth daily for bi rth control SPRINTEC 28 0.25-35 MG-MCG TABS [id number] NORGESTIMATE-ETH ESTRADIOL Inactive PERCOCET 5-325 MG TAB 1 tab po q 6 hours, prn severe pain PERCOCET 5-325 MG TAB [id number] OXYCODONE-ACETAMINOPHEN Inactive IBUPROFEN 600 MG ORAL TABS 1 by mouth twice a day 2014 IBUPROFEN 600 MG ORAL TABS [id number] IBUPROFEN Inactive CYMBALTA 30 MG CPEP 1 cap by mouth daily CYMBALTA 30 MG CPEP [id number] DULOXETINE HCL Inactive HYDROCODONE-ACETAMINOPHEN 5-325 MG TABS 1 po q6hr PRN Pain 04/09 HYDROCODONE-ACETAMINOPHEN 5-325 MG TABS [id number] HYDROCOD ONE-ACETAMINOPHEN Inactive TRAZODONE HCL 100 MG TAB 0.5 to 1 po qHS PRN Insomnia TRAZODONE HCL 100 MG TAB [id number] TRAZODONE HCL Inactive ALPRAZOLAM 0.5 MG TABS 1 po BID PRN Anxiety ALPRAZOLAM 0.5 MG TABS [id number] ALPRAZOLAM Inactive GZSNPIUZAK-[id number]-[id number] 50-325-40 MG ORAL CAPS 1-2 po TID [place] N Headache CPBXOURVRA-VIM-AUONWOXY 50-325-40 MG ORAL CAPS 2 63154 [id number] Inactive HYDROCODONE-ACETAMINOPHEN 5-325 MG TABS 1 po TID PRN Pain 9 HYDROCODONE-ACETAMINOPHEN 5-325 MG TABS [id number] HYDROCODONE-ACETAMIN OPHEN Inactive PERCOCET 10-325 MG TABS 1 tablet every 8 hours as needed for antonia n PERCOCET 10-325 MG TABS [id number] OXYCODONE-ACETAMINOPHEN Inactive ONDANSETRON 4 MG TBDP 1 q4h PRN nausea ON DANSETRON 4 MG TBDP 230533 ONDANSETRON Inactive VIIBRYD 10 & 20 & 40 MG KIT 1 po qd as directed 07/24 VIIBRYD 10 & 20 & 40 MG KIT VILAZODONE HCL Inactive DICLOFENAC SODIUM 50 MG TBEC 1 tablet by mouth four times da tom PRN Pain DICLOFENAC SODIUM 50 MG TBEC [id number] DICLOFENAC S ODIUM Inactive PERCOCET 10-325 MG ORAL TABS one every 6 hours prn pain PERCOCET 10-325 MG ORAL TABS [id number] OXYCODONE-ACETAMINOPHEN Inactiv e PERCOCET 10-325 MG ORAL TABS take 1 tab by mouth q 4hours as needed for pain PERCOCET 10-325 MG ORAL TABS [id number] OXYCODONE-ACETAMINOPHEN Inactive FLONASE ALLERGY RELIEF 50 MCG/ACT NASAL SUSP One spray in each nostril twice a day. FLONASE ALLERGY RELIEF 50 MCG/ACT NASAL S [facility] [id number] FLUTICASONE PROPIONATE Inactive AUGMENTIN 875-125 MG TAB 1 tab by mouth twice daily with food 20 23/05/16 AUGMENTIN 875-125 MG TAB [id number] AMOXICILLIN-POT [place] Inactive HYDROCODONE-ACETAMINOPHEN 5-325 MG TABS 1 tab by mouth every 6 hours as needed for pain HYDROCODONE-ACETAMINOPHEN 5-325 MG TABS 8 33626 HYDROCODONE-ACETAMINOPHEN Inactive AMOXICILLIN 875 MG TABS 1 tab by mouth twice daily 201 07/18/07 AMOXICILLIN 875 MG TABS 534471 AMOXICILLIN Inactive KEFLEX 500 MG CAP 1 po tid x 10 days KEFLEX 500 MG CAP 585855 CEPHALEXIN Inactive AMOXICILLIN 875 MG TABS 1 tab by mouth twice daily 201 07/19/27 AMOXICILLIN 875 MG TABS 709599 AMOXICILLIN Inactive AMOXICILLIN 875 MG TABS 1 tab by mouth twice daily 201 08/09/13 AMOXICILLIN 875 MG TABS 265270 AMOXICILLIN Inactive CIPRO 500 MG TAB 1 tablet by mouth twice daily CIPRO 500 MG TAB 920587 CIPROFLOXACIN HCL Inactive BACTRIM DS 800-160 MG TAB 1 tab by mouth twice daily 2 BACTRIM DS 800-160 MG TAB 025067 TRIMETHOPRIM-SULFAMETHOXAZOLE Inac tive LEVAQUIN 500 MG TABS 1 PO q day x 7 days LEVAQUIN 500 MG TABS 492094 LEVOFLOXACIN Inactive CLINDAMYCIN HCL 300 MG CAPS 1 po QID x 7 days CLINDAMYCIN HCL 300 MG CAPS 312498 CLINDAMYCIN HCL Inactive AUGMENTIN 875-125 MG TAB 1 tab by mouth twice daily with food 20 22/05/07 AUGMENTIN 875-125 MG TAB 032015 AMOXICILLIN-POT [place] Inactive DIFLUCAN 150 MG TAB 1 qODay x 2 doses DIFLUCAN 150 MG TAB 418454 FLUCONAZOLE Inactive PREDNISONE 20 MG TAB 2 tabs daily for 3 days, 1 t ab daily for 3 days, 1/2 tab daily for 2 days PREDNISONE 20 MG TAB 837258 PREDNISON E Inactive AUGMENTIN 875-125 MG TAB 1 tab by mouth twice daily with food 21/10/13 AUGMENTIN 875-125 MG TAB 253724 AMOXICILLIN-POT [place] Inactive HYDROCODONE-ACETAMINOPHEN 5-325 MG TABS 1 tab by mouth every 6 hours as needed PRN Pain HYDROCODONE-ACETAMINOPHEN 5-325 MG TABS 8 99594 HYDROCODONE-ACETAMINOPHEN Inactive PROMETHAZINE HCL 25 MG TABS 1 four times a day as needed for nausea/vomiting PROMETHAZINE HCL 25 MG TABS 979930 PROMETHAZINE HCL Inactive Advance Directives Directive Description Start Date PERMISSION TO SHARE Immunizations Vaccine Administration Date Value Standard Alf cription Seasonal influenza vaccine, injectable, containing preservative, for > 3 years old (Afluria, FluLaval, Fluzone, Fluvirin, Fluarix, Agriflu(>= 18 yo)) Fluzone (>3 yrs.) [[id number]] Influenza, seasonal, inject able Seasonal influenza vaccine, injectable, preservative free, for > 3 years old (Afluria, FluLaval, Fluzone, Fluvirin, Fluarix, Agriflu(>= 18 yo)) Fluzone preservative free (>3 yrs.) [[id number]] Influenza, seasonal, injectable, preservative free Seasonal influenza vaccine, injectable, containing preservative, for > 3 years old (Afluria, FluLaval, Fluzone, Fluvirin, Fluarix, Agriflu(>= 18 yo)) Fluzone (>3 yrs.) [[id number]] Influenza, seasonal, inject able Seasonal influenza vaccine, injectable, containing preservative, for > 3 years old (Afluria, FluLaval, Fluzone, Fluvirin, Fluarix, Agriflu(>= 18 yo)) Fluzone (>3 yrs.) [[id number]] Influenza, seasonal, inject able dT (Diphtheria and [...] Panel - Chemistry sodium, serum 142 mmol/L [phone]/05/12 potassium, serum 4.8 mmol/L 3.5-5.2 chloride, serum [...] Panel - Chemistry cholesterol, serum 165 mg/dL 209-816 2888/05/12 triglyceride, serum, fasting 524 mg/dL 30-200 HDL cholesterol, serum 24 mg/dL 32-96 cholesterol, serum 181 mg/dL [phone]/09/01 triglyceride, serum, fasting 341 mg/dL 30-200 HDL [...] negative Encounters Code Encounter Date Provider Facility CPT-94644 Level 3 Est. Patient 21:00:18 [employer]AL[employer]ANCE [employer]PERVIS[employer] Rajni danielson [facility] CPT-83575 Level 3 Est. Patient 14:15:00 QUALITY ASS[employer]ANCE SUPERVISOR [employer]ODY Kalpesh goins MD [facility]-62797 Level 2 Est. Patient 19:57:52 QUALITY ASSURANCE SUPERVISOR [employer]ODY Rajni Oconnor [facility] CPT-90384 Level 3 Est. Patient 16:58:40 QUALITY ASSURANCE SUPERVISOR BODY Bj funes MD [facility]-65578 Level 3 Est. Patient 08:51:33 CDT Kalpesh goins MD [facility] CPT-05543 Level 4 Est. Patient 14:14:53 CDT Abdirahman Rios MD [facility] CPT-17472 Level 3 Est. Patient 15:47:40 CDT Kalpesh goins MD [facility]-15714 Level 3 Est. Patient 10:57:26 CDT Abdirahman Rios MD [facility] CPT-65001 Level 3 Est. Patient 14:29:53 CDT Abhinav Galvan MD [facility] CPT-41485 Level 2 Est. Patient 16:33:01 CDT Kalpesh goins MD [facility]-89664 Level 4 Est. Patient 16:44:56 CDT Abdirahman Rios MD [facility] CPT-68674 Level 2 Est. Patient 07:49:32 CDT Kalpesh goins MD [facility] CPT-94605 Level 3 New Patient 15:47:11 [employer]AL[employer] ASS[employer]ANCE SUPERVISOR [employer] Bj huber MD [facility] CPT-72728 Level 4 Est. Patient 14:37:38 [employer]AL[employer] ASSURANCE SUPERVISOR [employer] Abdirahman Rios MD [facility] CPT-03667 Level 2 Est. Patient 13:32:17 [employer]AL[employer] ASSURANCE SUPERVISOR [employer]ODY Kalpesh goins MD [facility] CPT-91797 Level 3 Est. Patient 17:32:57 QUALITY ASSURANCE SUPERVISOR [employer]ODY Edilberto tiwari [facility] CPT-29653 Level 3 Est. Patient 17:22:33 QUALITY ASSURANCE SUPERVISOR [employer]ODY Edilberto tiwari [facility] CPT-58676 Level 2 Est. Patient 16:57:09 QUALITY ASSURANCE SUPERVISOR [employer]ODY Kalpesh goins MD [facility]-45668 Level 3 Est. Patient 14:03:08 QUALITY ASSURANCE SUPERVISOR [employer]ODY Abdirahman Rios MD [facility] CPT-64074 Level 3 Est. Patient 18:12:34 CDT Shola Wright [facility] CPT-18889 Level 3 Est. Patient 19:34:46 CDT Shola Wright [facility] CPT-40040 Level 3 Est. Patient 14:19:37 CDT Abdirahman Rios MD [facility] CPT-40180 Level 3 Est. Patient 14:11:58 CDT Kalpesh goins MD [facility] CPT-14969 Level 3 Est. Patient 16:50:00 CDT Michelle MERCADO [facility] CPT-57271 Level 3 Est. Patient 17:11:32 [employer]AL[employer] ASS[employer]ANCE SUPER[employer]OR [employer] Brandie bates MD PhD [facility] CPT-90223 Level 3 Est. Patient 16:31:47 QUALITY ASSURANCE SUPERVISOR [employer]ODY Shola Wright [facility] CPT-16031 Level 3 Est. Patient 17:51:10 QUALITY ASSURANCE SUPERVISOR [employer]ODY Abhinav Galvan MD [facility] CPT-59194 Level 4 Est. Patient 12:54:56 QUALITY ASSURANCE SUPERVISOR [employer]ODY Kalpesh goins MD [facility] CPT-81225 Level 4 Est. Patient 12:53:56 QUALITY ASSURANCE SUPERVISOR BODY Kalpesh goins MD [facility] CPT-70630 Level 3 Est. Patient 17:56:58 CDT Shola Wright [facility] CPT-05765 Level 3 Est. Patient 14:26:20 CDT Janak butcher [facility] CPT-40672 Level 3 Est. Patient 09:38:41 CDT Shola Keesha Wright [facility] CPT-40060 Level 3 Est. Patient 14:45:[address] [facility]-70677 Level 3 Est. Patient 10:51:33 CDT [facility] C[facility]-09595 Level 3 Est. Patient 11:57:55 QUAL[employer] ASSURANCE SUPERVISOR [employer]ODY Shola Thao Adriana [facility] CPT-21449 Level 3 Est. Patient 09:53:33 QUALITY ASSURANCE SUPERVISOR [employer]ODY Edilberto tiwari [facility] CPT-26077 Level 3 Est. Patient 14:42:54 QUALITY ASSURANCE SUPERVISOR [employer]ODY Abhinav Galvan MD [facility] CPT-77707 Level 3 Est. Patient 15:10:02 CDT Janak butcher [facility] CPT-70060 Level 3 Est. Patient 15:20:20 CDT Theo dennis MD [facility] CPT-56620 Level 2 Est. Patient 14:08:57 CDT Kalpesh goins MD [facility]-33927 Level 3 Est. Patient 13:56:19 CDT Abdirahman Rios MD [facility] CPT-44898 Level 3 Est. Patient 13:59:37 CDT Abdirahman Rios MD [facility] CPT-94967 Level 2 Est. Patient 14:44:59 CDT Kalpesh gonis MD [facility] CPT-68668 Level 3 Est. Patient 06:06:23 CDT Edilberto tiwari DO [facility] CPT-29985 Level 3 Est. Patient 15:23:54 CDT Abdirahman Rios MD [facility] CPT-47184 Level 3 Est. Patient 15:43:49 CDT Abdirahman Rios MD [facility] CPT-84409 Level 3 Est. Patient 12:46:47 QUALITY ASSURANCE SUPERVISOR [employer] Abdirahman Rios MD [facility] CPT-67528 Level 3 Est. Patient 08:13:35 QUALITY ASSURANCE SUPERVISOR [employer]ODY Abdirahman Rios MD [facility] CPT-68712 Level 2 Est. Patient 09:36:42 QUALITY ASSURANCE SUPERVISOR [employer]ODY Abdirahman Rios MD [facility] CPT-49566 Level 3 Est. Patient 10:56:43 CDT Abdirahman Rios MD [facility] CPT-60951 Level 3 Est. Patient 18:24:52 CDT Abdirahman Rios MD [facility] CPT-13950 Level 3 Est. Patient 13:27:22 CDT Abdirahman Rios MD [facility] Procedures Code Procedure Name Date Entry Date Standard Desc ription CPT-23051 Postop F/U Visit 15:18:16 [employer] CPT-46727 Postop F/U Visit 15:03:49 [employer]ANCE [employer] CPT-86494 Postop F/U Visit 14:45:23 [employer]AL[employer]ANCE [employer] CPT-85521 Postop F/U Visit 14:11:03 [employer]AL[employer]ANCE [employer]PER[employer] CPT-57366 Postop F/U Visit 18:21:21 [employer]AL[employer]ANCE [employer]PER[employer] CPT-31736 Postop F/U Visit 15:57:12 QUALITY ASS[employer]ANCE SUPERVISOR [employer] CPT-29293 Bladder Instillation 16:58:41 QUALITY ASSURANCE SUPERVISOR [employer]ODY 6 CPT-91791 Fluzone Quadrivalent Intramuscular Suspe nsion 0.5 ML 15:20:56 QUALITY ASSURANCE SUPERVISOR [employer] CPT-14434 Immunization Single Admin 15:20:56 QUALITY ASSURANCE SUPERVISOR [employer]ODY 2014 CPT-66183 Excis pilonidal cyst simple 08:51:34 CDT 20 22/04/20 CPT-61121 Venipuncture Draw Fee 14:27:29 CDT CPT-42127 Postop F/U Visit 15:27:43 CDT CPT-80291 Postop F/U Visit 14:40:59 CDT CPT-71045 Postop F/U Visit 15:02:46 CDT CPT-10719 Postop F/U Visit 11:29:00 [employer]AL[employer] ASSURANCE SUPER[employer]OR [employer] CPT-J0696 Rocephin 1000 mg (Ceftriaxone) 17:22:33 QUALITY ASSURANCE SUPERVISOR [employer] CPT-54072 Postop F/U Visit 18:41:07 QUALITY ASSURANCE SUPERVISOR [employer] CPT-38135 Postop F/U Visit 08:19:08 QUALITY ASSURANCE SUPERVISOR [employer] CPT-63513 Immunization Single Admin 16:41:53 CDT 2013 CPT-41706 Fluzone Quadrivalent Intramuscular Suspe nsion 0.5 ML 16:41:53 CDT CPT-OV Office Visit 16:39:18 CDT CPT-OV Office Visit 16:16:36 CDT CPT-OV Office Visit 15:34:48 CDT CPT-83625 Postop F/U Visit 14:50:12 CDT CPT-55139 Postop F/U Visit 14:41:10 CDT CPT-43800 Venipuncture Draw Fee 11:38:04 [employer]AL[employer] ASS[employer]ANCE SUPER[employer]OR [employer] CPT-88425 Postop F/U Visit 19:02:59 QUALITY ASSURANCE SUPERVISOR [employer] CPT-31595 Postop F/U Visit 12:04:54 QUALITY ASSURANCE SUPERVISOR [employer] CPT-04007 Administration single or combination vac cine inc oral 15:56:43 CDT CPT-70037 Influenza split virus > age 3 15:56:43 CDT CPT-26556 Hand comp min 3V 14:25:19 CDT CPT-37539 Postop F/U Visit 21:40:51 CDT CPT-52622 Postop F/U Visit 10:58:43 CDT CPT-14139 Administration single or combination vac cine inc oral 12:33:54 QUALITY ASSURANCE SUPER[employer]OR [employer] CPT-95301 Influenza Preservative Free split virus >age 3 12:33:54 QUALITY ASSURANCE SUPERVISOR [employer]ODY CPT-43535 Administration single or combination vac cine inc oral 09:30:51 CDT CPT-12268 Influenza split virus > age 3 09:30:51 CDT CPT-04475 Postop F/U Visit 15:14:53 CDT CPT-33310 Postop F/U Visit 13:50:14 CDT CPT-83241 Postop F/U Visit 13:34:52 CDT CPT-OV Office Visit 16:55:03 CDT CPT-26936 [place] of cervix w bx ECC 13:32:50 CDT 10/19 CPT-J1885 Toradol 60 mg (Ketorolac) 15:31:59 CDT 2011 CPT-J1885 Toradol 60 mg (Ketorolac) 15:23:54 CDT 2011 CPT-18594 Visit 11:34:37 QUALITY ASSURANCE SUPERVISOR [employer] CPT-03735 Visit 10:52:39 QUALITY ASSURANCE SUPERVISOR [employer] CPT-68046 Visit 10:12:02 QUALITY ASSURANCE SUPERVISOR [employer] CPT-76156 Visit 11:22:43 QUALITY ASSURANCE SUPERVISOR [employer] CPT-02022 Visit 11:24:12 QUALITY ASS[employer]ANCE SUPER[employer]OR [employer] CPT-94299 Visit 10:47:05 QUALITY ASSURANCE SUPER[employer]OR [employer] CPT-OV Office Visit 10:26:16 QUALITY ASSURANCE SUPERVISOR [employer] CPT-OV Office Visit 15:34:31 QUALITY ASSURANCE SUPERVISOR [employer] CPT-84216 Visit 10:42:08 QUALITY ASSURANCE SUPERVISOR [employer] CPT-66918 Visit 10:52:45 QUALITY ASSURANCE SUPER[employer]OR [employer] CPT-000 Give Appropriate Flu Vaccine 16:56:41 CDT 2 CPT-27431 Administration single or combination vac cine inc oral 10:33:21 CDT CPT-16038 Influenza split virus > age 3 10:33:21 CDT CPT-80089 Visit 13:23:09 CDT CPT-83297 Visit 18:24:52 CDT CPT-89003 Sono OB comp > 14 weeks 12:07:49 CDT 04/07
--- OUTSIDE RECORDS SUMMARY | 2020-01-18 16:29 | XMS REPORT | Clinical Summary ---
Author Author Admin, Jeri Rashid Organization [facility] Address Unknown Phone Unavailable Allergies, Adverse [...] food] Back pain, chronic 724.5 Active Shola MCGLIL Backache, unspecified Back strain 847.9 Resolved Abdirahman [...] NEC Abscess, perirectal 566 Active Hira roman ORACLE BPM DEVELOPER Abscess of anal and rectal regions Hypertriglyceridemia [...] CHRONIC ICD-490 8 Inactive Abdirahman Rios MD , INCIDENTAL PROBLEM ICD-V22.2 Inacti ve Abdirahman Rios MD ABDOMINAL ABSCESS ICD-682.2 Inactive Abdirahman sanchez [...] FAMILY PLANNING ICD-V25.09 Inactive Good Julian MD FAMILY HISTORY OF ASTHMA ICD-V17.5 Inactive Moni Julian MD 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 [...] Good Julian MD BACK PAIN ICD-724.5 Inactive Godo collier MD DEPRESSION ICD-311 Inactive Good sierra MD Dysmenorrhea, severe ICD-625.3 Inactive Kalpesh Dong [...] prn for severe pain 20 20/02/27 OXYCODONE-ACETAMINOPHEN 44502827392 Active Jillina Frajalenl ORACLE BPM DEVELOPER Active PERCOCET 5-325 MG ORAL TABS 1 every 6 hours as needed OXYCODONE-ACETAMINOPHEN 79728774274 Active Jillina Frazell ORACLE BPM DEVELOPER Active HYDROCODONE-ACETAMINOPHEN 5-325 MG TABS 1 po q6hr PRN pain 06/30 HYDROCODONE-ACETAMINOPHEN 55992721393 No Longer Active Jillina Frazel l ORACLE BPM DEVELOPER Active SPRINTEC 28 0.25-35 MG-MCG TABS 1 pill by mouth daily for bi rth control NORGESTIMATE-ETH ESTRADIOL 81338912381 Active Matthewllina Frajalenl ORACLE BPM DEVELOPER Active GLUCOPHAGE 500 MG ORAL TABS one by mouth 3 times a day METFORMIN HCL 79118478356 No Longer Active Jillina Karmenl ORACLE BPM DEVELOPER Ac tive PERCOCET 10-325 MG TABS 1 tab by mouth every 6 hours , use sparingly for severe pain OXYCODONE-ACETAMINOPHEN 73049236346 No Longer A ctive Abdirahman Rios MD Active IBUPROFEN 600 MG ORAL TABS 1 by mouth twice a day IBUPROFEN 13841769282 Active ERNIE Higuera Active TRAZODONE HCL 100 MG TAB 0.5 to 1 po qHS PRN Insomnia TRAZODONE HCL 07180677247 Active Abdirahman Rios MD Active CYMBALTA 30 MG CPEP 1 cap by mouth daily DULOXE CLEO HCL 53771427109 Active Abdirahman Rios MD Active EMLA 2.5-2.5 % EXT CREA apply to skin lesion q 6 hours, prn 2014 LIDOCAINE-PRILOCAINE 69194903593 No Longer Active Abdirahman Rios MD Active PERCOCET 10-325 MG ORAL TABS 1 every 4 hours as needed OXYCODONE-ACETAMINOPHEN 37101133412 No Longer Active Abdirahman Rios MD Active [id number] 50-325-40 MG ORAL CAPS 1-2 po TID [place] N Headache [id number] 09440809010 Active Abdirahman Rios MD Active AUGMENTIN 875-125 MG TAB 1 tab by mouth twice daily with food 20 21/10/13 AMOXICILLIN-POT CLAVULANATE 39009839169 No Longer Active Ursula jasmina Frazell ORACLE BPM DEVELOPER Active PROAIR HFA 108 (90 BASE) MCG/ACT AERS 2 puff q 4-6 hrs PRN 01/24 ALBUTEROL SULFATE 68363146532 No Longer Active Kalpesh Dong MD Active ALPRAZOLAM 0.5 MG TABS 1 po BID PRN Anxiety ALPRA ZOLAM 21106582800 Active Abdirahman Rios MD Active CYCLOBENZAPRINE HCL 10 MG TABS 1 tablet by mouth three times daily as needed for muscle spasm/pain CYCLOBENZAPRINE HCL 28859678690 Active Abdirahman Rios MD Active PREDNISONE 20 MG TAB 2 tabs daily for 3 days, 1 t ab daily for 3 days, 1/2 tab daily for 2 days PREDNISONE 17013100641 No Longer Active Abdirahman Rios MD Active KEFLEX 500 MG CAP 1 po qid CEPHALEXIN 888493785 20 No Longer Active Kaplesh Dong MD Active PERCOCET 5-325 MG TAB 1 every 6 hours as needed OXYCODONE-ACETAMINOPHEN 71865165691 No Longer Active Shola MCGILL Active LC-5 LIDOCAINE 5 % CREA apply 1 time daily to affected area 2013 LIDOCAINE (ANORECTAL) 55389138946 No Longer Active Jillina F razell ORACLE BPM DEVELOPER Active HYDROCODONE-ACETAMINOPHEN 10-325 MG TABS 1 by mouth ev chaka 8 hours as needed for pain HYDROCODONE-ACETAMINOPHEN 65167564260 No Longer Active Jillina Frazell ORACLE BPM DEVELOPER Active LORATADINE 10 MG TABS 1 tablet by mouth daily L ORATADINE 99956734892 No Longer Active Jillina Frazell ORACLE BPM DEVELOPER Active DIFLUCAN 150 MG TAB 1 qODay x 2 doses FLUCONAZO LE 48448390749 No Longer Active Jillina Frazell ORACLE BPM DEVELOPER Active CYCLOBENZAPRINE HCL 10 MG TABS 1/2 - 1 tab PO tid PRN back p ain, muscle spasm CYCLOBENZAPRINE HCL 98161619627 No Longer Active Karen siri Frazell ORACLE BPM DEVELOPER Active AUGMENTIN 875-125 MG TAB 1 tab by mouth twice daily with food 20 22/05/07 AMOXICILLIN-POT CLAVULANATE 34870157788 No Longer Active Loida Rios MD Active MOBIC 15 MG TABS 1 tab daily MELOXICAM 760753121 14 No Longer Active Abdirahman Rios MD Active PERCOCET 7.5-325 MG TABS 1 PO tid PRN pain OXYCODONE-ACETAMINOPHEN 41915823344 No Longer Active Abdirahman Rios MD Active LIDODERM 5 % PTCH One patch to painful area [place]. On for 12 hrs, off for 12 hrs. LIDOCAINE 78740611876 No Longer Active Abdirahman Rios MD Active PERCOCET 7.5-325 MG TABS 1 PO q 8 hrs PRN pain OXYCODONE-ACETAMINOPHEN 23094569370 No Longer Active Shola MCGILL Active HYDROCODONE-ACETAMINOPHEN 7.5-325 MG TABS 1 by mouth e very 6 hours as needed for pain HYDROCODONE-ACETAMINOPHEN 85677416483 No Longer Active Good Julian MD Active CLINDAMYCIN HCL 300 MG CAPS 1 po QID x 7 days CLINDAMYCIN HCL 13444411234 No Longer Active Abdirahman Rios MD Activ e BACTRIM DS 800-160 MG TABS 1 po BID x 7 days 5 SULFAMETHOXAZOLE-TRIMETHOPRIM 59163568313 No Longer Active Abdirahman Rios MD Active ENDOCET 10-325 MG TABS 1 q 6 hr prn OXYCODONE-ACETAMINOPHEN 56648079869 No Longer Active Abdirahman Rios MD Active IBUPROFEN 800 MG TABS 1 tid prn IBUPROFEN 485665 21183 No Longer Active Abdirahman Rios MD Active BACTRIM DS 800-160 MG TABS by mouth twice a day 11/05 SULFAMETHOXAZOLE-TRIMETHOPRIM 50338489077 No Longer Active Good Julian MD Active HYDROCODONE-ACETAMINOPHEN 7.5-325 MG TABS 1 four times a day as needed for pain HYDROCODONE-ACETAMINOPHEN 96178807995 No Longer Activ e Good Julian MD Active KEFLEX 500 MG CAP 1 tab po tid CEPHALEXIN 656281 80987 No Longer Active Jillsiri Moser ORACLE BPM DEVELOPER Active IBUPROFEN 800 MG TAB 1 pill three times daily as needed for pain IBUPROFEN 17116414868 No Longer Active Kalpesh Dong MD Active PROMETHAZINE-CODEINE 6.25-10 MG/5ML SYRP 1 tsp every 6 hrs prn c ough PROMETHAZINE-CODEINE 59972867361 No Longer Active Kalpesh Carr Active HYDROCODONE-ACETAMINOPHEN 5-325 MG TABS 1 tab by mouth every 6 hours as needed HYDROCODONE-ACETAMINOPHEN 86302052077 No Longer Activ e Shola MCGILL Active CEPHALEXIN 500 MG CAPS 1 PO bid x 7 days CEPHAL EXIN 75262743876 No Longer Active Shola MCGILL Active BACTRIM DS 800-160 MG TAB 1 tab by mouth twice daily 2 TRIMETHOPRIM-SULFAMETHOXAZOLE 59679733993 No Longer Active Kalpesh Dong MD Active HYDROCODONE-ACETAMINOPHEN 5-325 MG TABS 1 PO tid PRN pain 5 HYDROCODONE-ACETAMINOPHEN 37294976405 No Longer Active Abhinav Galvan MD Active IMPLANON 68 MG IMPL IMPLANTED IN LEFT ARM ETONO GESTREL 40315608458 No Longer Active Hira Moser APRN Active AMOXICILLIN 500 MG TABS 2 tabs PO bid x 10 d AM OXICILLIN 25358791681 No Longer Active Kalpesh Dong MD Active LEVAQUIN 500 MG TABS 1 PO q day x 7 days LEVOFL OXACIN 68377502030 No Longer Active Shola MCGILL Active AMITRIPTYLINE HCL 25 MG TAB 1 tab by mouth daily 60 minutes before bedtime AMITRIPTYLINE HCL 65971465651 No Longer Active Shola MCGILL Active LORTAB 5 5-500 MG TABS 1/2 to 1 tablet by mouth go ry 6 hours as needed for pain HYDROCODONE-ACETAMINOPHEN 61593333544 No Longer Active Shola MCGILL Active CEPHALEXIN 500 MG TABS Take one by mouth four times daily, morning, noon, early evening and bedtime. CEPHALEXIN 79262438426 No Long er Active Matthewllina Shanti RIVAS Active TYLENOL/CODEINE #3 300-30 MG TAB 1-2 po q6hr PRN Pain ACETAMINOPHEN-CODEINE 49672666972 No Longer Active Edilberto Marino DO Active PRISTIQ 50 MG [id number] 1 po qd DESVENLAFAXI NE SUCCINATE 90377236561 No Longer Active Edilberto Marino DO Active PENICILLIN V POTASSIUM 500 MG TAB 1 four times a day 2 PENICILLIN V POTASSIUM 54396772735 No Longer Active Edilberto Marino DO Active DOXYCYCLINE HYCLATE 100 MG CAPS Take one (1) tablet by mouth twice a day DOXYCYCLINE HYCLATE 40291553603 No Longer Active Ronnie Galvan MD Active HYDROCODONE-ACETAMINOPHEN 5-325 MG TABS 1 po q 6hr PRN Pain 2011 HYDROCODONE-ACETAMINOPHEN 41424561575 No Longer Active Patri joan Perez RN Active BACTRIM DS 800-160 MG TAB 1 tab by mouth twice daily 2 TRIMETHOPRIM-SULFAMETHOXAZOLE 40905041635 No Longer Active Kalpesh Dong MD Active LORTAB 5 5-500 MG TABS 1/2 to 1 tablet by mouth go ry 4 hours as needed for pain HYDROCODONE-ACETAMINOPHEN 53306485461 No Longer Active Kalpesh Dong MD Active GENERESS FE 0.8-25 MG-MCG CHEW Take one by mouth daily NORETHIN-ETH ESTRADIOL-FE 30042765232 No Longer Active Kalpesh Dong MD Active HYDROCODONE-ACETAMINOPHEN 7.5-500 MG TABS 1-2 every 4 hours as needed HYDROCODONE-ACETAMINOPHEN 92349001240 No Longer Activ e Kalpesh Dong MD Active FERROUS SULFATE 325 (65 FE) MG TABS 1 tablet by mouth twice yung y FERROUS SULFATE 01785151398 No Longer Active Kalpesh Dong MD Active IBUPROFEN 600 MG TAB 1 po q6-8hr PRN IBUPROFEN 51864353656 No Longer Active Kalpesh Dong MD Active SPIRONOLACTONE 25 MG TAB 1 tablet by mouth daily 01/22 SPIRONOLACTONE 11408428339 No Longer Active Kalpesh Dong MD Acti ve HYDROCODONE-ACETAMINOPHEN 7.5-325 MG TABS 1 po QID PRN Pain 2011 HYDROCODONE-ACETAMINOPHEN 56994418004 No Longer Active Kalpesh Dong MD Active CLINDAMYCIN HCL 300 MG CAPS 1 po q6hr x 7 days CLINDAMYCIN HCL 10725818917 No Longer Active Edilberto Marino DO Active PREDNISONE 20 MG TAB 2 tabs daily for 4 days, 1 t ab daily for 4 days, 1/2 tab daily for 4 days PREDNISONE 22162284776 No Longer Active Edilberto Marino DO Active PERCOCET 5-325 MG TABS 1 tablet by mouth every 6 hours as ne eded for pain OXYCODONE-ACETAMINOPHEN 93471125502 No Longer Active Abdirahman Rios MD Active VITAMINS TABS Take one by mouth daily MV & MIN W/FE-FA TABS 91431506474 No Longer Active Abdirahman Rios MD Active LUIS 3-0.02 MG TABS 1 tablet by mouth daily as directed DROSPIRENONE-ETHINYL ESTRADIOL 52791406407 No Longer Active Abdirahman Rios MD Active LORATADINE 10 MG TABS 1 tablet by mouth daily L ORATADINE 41184522431 No Longer Active Kalpesh Dong MD Active HYDROCODONE-ACETAMINOPHEN 5-325 MG TABS 1 po q 6hr PRN Pain 2010 HYDROCODONE-ACETAMINOPHEN 63024680276 No Longer Active Edilberto Marino DO Active BACTRIM DS 800-160 MG TAB 1 tab by mouth twice daily 2 TRIMETHOPRIM-SULFAMETHOXAZOLE 72874452060 No Longer Active Abdirahman Rios MD Active 28-0.8 MG TABS Take one by mouth daily 09/20 VIT-FE FUMARATE-FA 67414548072 No Longer Active Abdirahman Rios MD Active CIPRO 500 MG TAB 1 tablet by mouth twice daily CIPROFLOXACIN HCL 73144212074 No Longer Active Abidrahman Rios MD Active BENADRYL 25 MG CAP 1 po q8hr PRN Congestion DIPHENHYDRAMINE HCL 88603173868 No Longer Active Abdirahman Rios MD Active ZOLOFT 50 MG TAB 1 po qd SERTRALINE HCL 256126 26501 No Longer Active Abdirahman Rios MD Active AMOXICILLIN 875 MG TABS 1 tab by mouth twice daily 201 08/09/13 AMOXICILLIN 42992527998 No Longer Active Abdirahman Rios MD Activ e AMOXICILLIN 875 MG TABS 1 tab by mouth twice daily 201 07/19/27 AMOXICILLIN 16930372576 No Longer Active Abdirahman Rios MD Activ e BACTRIM DS 800-160 MG TAB 2 tab by mouth twice daily 2 TRIMETHOPRIM-SULFAMETHOXAZOLE 83393677300 No Longer Active Abdirahman Rios MD Active KEFLEX 500 MG CAP 1 po tid x 10 days CEPHALEXIN 94464722708 No Longer Active Abdirahman Rios MD Active AMOXICILLIN 875 MG TABS 1 tab by mouth twice daily 201 07/18/07 AMOXICILLIN 95846339764 No Longer Active Abdirahman Rios MD Activ e BACTRIM DS 800-160 MG TAB 2 tab by mouth twice daily 2 BACTRIM DS 800-160 MG TAB TRIMETHOPRIM-SULFAMETHOXAZOLE Inactive ZOLOFT 50 MG TAB 1 po qd ZOLOFT 50 MG TAB 3129 41 SERTRALINE HCL Inactive BENADRYL 25 MG CAP 1 po q8hr PRN Congestion BENADRYL 25 MG CAP 6402350 DIPHENHYDRAMINE HCL Inactive 28-0.8 MG TABS Take one by mouth daily 09/20 28-0.8 MG TABS VIT-FE FUMARATE-FA Inactive HYDROCODONE-ACETAMINOPHEN 5-325 MG TABS 1 po q 6hr PRN Pain 2010 HYDROCODONE-ACETAMINOPHEN 5-325 MG TABS 684486 HYDROCODONE-ACETAMINOPHEN Inactive LORATADINE 10 MG TABS 1 tablet by mouth daily LORATADINE 10 MG TABS 150557 LORATADINE Inactive LUIS 3-0.02 MG TABS 1 tablet by mouth daily as directed LUIS 3-0.02 MG TABS DROSPIRENONE-ETHINYL ESTRADIOL Inactive VITAMINS TABS Take one by mouth daily VITAMINS TABS MV & MIN W/FE-FA TABS Inactive PERCOCET 5-325 MG TABS 1 tablet by mouth every 6 hours as ne eded for pain PERCOCET 5-325 MG TABS 9702611 OXYCODONE-ACETAMIN OPHEN Inactive PREDNISONE 20 MG TAB 2 tabs daily for 4 days, 1 t ab daily for 4 days, 1/2 tab daily for 4 days PREDNISONE 20 MG TAB 724817 PREDNISON E Inactive CLINDAMYCIN HCL 300 MG CAPS 1 po q6hr x 7 days CLINDAMYCIN HCL 300 MG CAPS 427561 CLINDAMYCIN HCL Inactive HYDROCODONE-ACETAMINOPHEN 7.5-325 MG TABS 1 po QID PRN Pain 2011 HYDROCODONE-ACETAMINOPHEN 7.5-325 MG TABS 665551 HYDROCODONE-ACETAMINOPHEN Inactive SPIRONOLACTONE 25 MG TAB 1 tablet by mouth daily 01/22 SPIRONOLACTONE 25 MG TAB 266139 SPIRONOLACTONE Inactive IBUPROFEN 600 MG TAB 1 po q6-8hr PRN IBUPROFEN 600 MG TAB 219222 IBUPROFEN Inactive FERROUS SULFATE 325 (65 FE) MG TABS 1 tablet by mouth twice yung y FERROUS SULFATE 325 (65 FE) MG TABS 233391 FERROUS SULF ATE Inactive HYDROCODONE-ACETAMINOPHEN 7.5-500 MG TABS 1-2 every 4 hours as needed HYDROCODONE-ACETAMINOPHEN 7.5-500 MG TABS HYDROCODONE-ACETAMINOPHEN Inactive GENERESS FE 0.8-25 MG-MCG CHEW Take one by mouth daily GENERESS FE 0.8-25 MG-MCG CHEW 2594154 NORETHIN-ETH ESTRADIOL-FE Inactive LORTAB 5 5-500 MG [...] PRN Pain 2011 HYDROCODONE-ACETAMINOPHEN 5-325 MG TABS 631120 HYDROCODONE-ACETAMINOPHEN Inactive DOXYCYCLINE HYCLATE 100 MG CAPS Take one (1) tablet by mouth twice a day DOXYCYCLINE HYCLATE 100 MG CAPS 1054244 DOXYCYCLINE HYCLATE Inactive PENICILLIN V POTASSIUM 500 MG TAB 1 four times a day 2 PENICILLIN V POTASSIUM 500 MG TAB 173727 PENICILLIN V POTASSIUM Siri ctive PRISTIQ 50 MG [id number] 1 po qd PRISTIQ 50 MG [id number] DESVENLAFAXINE SUCCINATE Inactive TYLENOL/CODEINE #3 300-30 MG TAB 1-2 po q6hr PRN Pain TYLENOL/CODEINE #3 300-30 MG TAB 833577 ACETAMINOPHEN-CODEINE Inact krishna CEPHALEXIN 500 MG TABS Take one by mouth four times daily, morning, noon, early evening and bedtime. CEPHALEXIN 500 MG TABS 591955 CEPHALEXIN Inactive LORTAB 5 5-500 MG TABS 1/2 to 1 tablet by mouth go ry 6 hours as needed for pain LORTAB 5 5-500 MG TABS HYDROCODONE-A CETAMINOPHEN Inactive AMITRIPTYLINE HCL 25 MG TAB 1 tab by mouth daily 60 minutes before bedtime AMITRIPTYLINE HCL 25 MG TAB 383693 AMITRIPTYLINE HCL Inactive AMOXICILLIN 500 MG TABS 2 tabs PO bid x 10 d 7 AMOXICILLIN 500 MG TABS 232636 AMOXICILLIN Inactive IMPLANON 68 MG IMPL IMPLANTED IN LEFT ARM IMPLANON 68 MG IMPL ETONOGESTREL Inactive HYDROCODONE-ACETAMINOPHEN 5-325 MG TABS 1 PO tid PRN pain 5 HYDROCODONE-ACETAMINOPHEN 5-325 MG TABS 273133 HYDROCODONE-ACETAMIN OPHEN Inactive BACTRIM DS 800-160 MG TAB 1 tab by mouth twice daily 2 BACTRIM DS 800-160 MG TAB TRIMETHOPRIM-SULFAMETHOXAZOLE Inac tive CEPHALEXIN 500 MG CAPS 1 PO bid x 7 days CEPHALEXIN 500 MG CAPS 800178 CEPHALEXIN Inactive HYDROCODONE-ACETAMINOPHEN 5-325 MG TABS 1 tab by mouth every 6 hours as needed HYDROCODONE-ACETAMINOPHEN 5-325 MG TABS 700594 HYDROCODONE-ACETAMINOPHEN Inactive PROMETHAZINE-CODEINE 6.25-10 MG/5ML SYRP 1 tsp every 6 hrs prn c ough PROMETHAZINE-CODEINE 6.25-10 MG/5ML SYRP 160539 PROMETH AZINE-CODEINE Inactive IBUPROFEN 800 MG TAB 1 pill three times daily as needed for pain IBUPROFEN 800 MG TAB IBUPROFEN Inactive KEFLEX 500 MG CAP 1 tab po tid KEFLEX 500 MG CAP 766932 CEPHALEXIN Inactive HYDROCODONE-ACETAMINOPHEN 7.5-325 MG TABS 1 four times a day as needed for pain HYDROCODONE-ACETAMINOPHEN 7.5-325 MG TABS 734333 HYDROCODONE-ACETAMINOPHEN Inactive BACTRIM DS 800-160 MG TABS by mouth twice a day 11/05 BACTRIM DS 800-160 MG TABS SULFAMETHOXAZOLE-TRIMETHOPRIM Inactive IBUPROFEN 800 MG TABS 1 tid prn IBUPROFEN 800 MG TABS 676366 IBUPROFEN Inactive ENDOCET 10-325 MG TABS 1 q 6 hr prn ENDOC ET 10-325 MG TABS 0640850 OXYCODONE-ACETAMINOPHEN Inactive HYDROCODONE-ACETAMINOPHEN 7.5-325 MG TABS 1 by mouth e very 6 hours as needed for pain HYDROCODONE-ACETAMINOPHEN 7.5-325 MG TABS 979779 HYDROCODONE-ACETAMINOPHEN Inactive PERCOCET 7.5-325 MG TABS 1 PO q 8 hrs PRN pain PERCOCET 7.5-325 MG TABS 2115744 OXYCODONE-ACETAMINOPHEN Inactive LIDODERM 5 % PTCH One patch to painful area [place]. On for 12 hrs, off for 12 hrs. LIDODERM 5 % PTCH 2036932 LIDOCAINE Inactiv e PERCOCET 7.5-325 MG TABS 1 PO tid PRN pain PERCOCET 7.5- 325 MG TABS 0827912 OXYCODONE-ACETAMINOPHEN Inactive MOBIC 15 MG TABS 1 tab daily MOBIC 15 MG TABS 15 2695 MELOXICAM Inactive CYCLOBENZAPRINE HCL 10 MG TABS 1/2 - 1 tab PO tid PRN back p ain, muscle spasm CYCLOBENZAPRINE HCL 10 MG TABS 942189 CYCLOBENZA JOSEPH HCL Inactive LORATADINE 10 MG TABS 1 tablet by mouth daily LORATADINE 10 MG TABS 387882 LORATADINE Inactive HYDROCODONE-ACETAMINOPHEN 10-325 MG TABS 1 by mouth ev chaka 8 hours as needed for pain HYDROCODONE-ACETAMINOPHEN 10-325 MG TABS 735534 HYDROCODONE-ACETAMINOPHEN Inactive LC-5 LIDOCAINE 5 % CREA apply 1 time daily to affected area 2013 LC-5 LIDOCAINE 5 % CREA LIDOCAINE (ANORECTAL) In active PERCOCET 5-325 MG TAB 1 every 6 hours as needed PERCOCET 5-325 MG TAB 2383215 OXYCODONE-ACETAMINOPHEN Inactive KEFLEX 500 MG CAP 1 po qid KEFLEX 500 MG CAP 30 14 CEPHALEXIN Inactive PROAIR HFA 108 (90 BASE) MCG/ACT AERS 2 puff q 4-6 hrs PRN 01/24 PROAIR HFA 108 (90 BASE) MCG/ACT AERS ALBUTEROL SULFATE Inactive PERCOCET 10-325 MG ORAL TABS 1 every 4 hours as needed PERCOCET 10-325 MG ORAL TABS 1932608 OXYCODONE-ACETAMINOPHEN Inactiv e EMLA 2.5-2.5 % EXT CREA apply to skin lesion q 6 hours, prn 2014 EMLA 2.5-2.5 % EXT CREA 791753 LIDOCAINE-PRILOCAINE Siri ctive PERCOCET 10-325 MG TABS 1 tab by mouth every 6 hours , use sparingly for severe pain PERCOCET 10-325 MG TABS 3133225 OXYCODONE-ACETAMINOPHEN Inactive GLUCOPHAGE 500 MG ORAL TABS one by mouth 3 times a day GLUCOPHAGE 500 MG ORAL TABS 562260 METFORMIN HCL Inactive HYDROCODONE-ACETAMINOPHEN 5-325 MG TABS 1 po q6hr PRN pain 06/30 HYDROCODONE-ACETAMINOPHEN 5-325 MG TABS 485919 HYDROCOD ONE-ACETAMINOPHEN Inactive AMOXICILLIN 875 MG TABS 1 tab by mouth twice daily 201 07/18/07 AMOXICILLIN 875 MG TABS 703533 AMOXICILLIN Inactive KEFLEX 500 MG CAP 1 po tid x 10 days KEFLEX 500 MG CAP 478671 CEPHALEXIN Inactive AMOXICILLIN 875 MG TABS 1 tab by mouth twice daily 201 07/19/27 AMOXICILLIN 875 MG TABS 918460 AMOXICILLIN Inactive AMOXICILLIN 875 MG TABS 1 tab by mouth twice daily 201 08/09/13 AMOXICILLIN 875 MG TABS 042182 AMOXICILLIN Inactive CIPRO 500 MG TAB 1 tablet by mouth twice daily CIPRO 500 MG TAB 392858 CIPROFLOXACIN HCL Inactive BACTRIM DS 800-160 MG TAB 1 tab by mouth twice daily 2 BACTRIM DS 800-160 MG TAB TRIMETHOPRIM-SULFAMETHOXAZOLE Inac tive LEVAQUIN 500 MG TABS 1 PO q day x 7 days LEVAQUIN 500 MG TABS 809508 LEVOFLOXACIN Inactive CLINDAMYCIN HCL 300 MG CAPS 1 po QID x 7 days CLINDAMYCIN HCL 300 MG CAPS 733455 CLINDAMYCIN HCL Inactive AUGMENTIN 875-125 MG TAB 1 tab by mouth twice daily with food 20 22/05/07 AUGMENTIN 875-125 MG TAB 375446 AMOXICILLIN-POT CLAVULA [place] Inactive DIFLUCAN 150 MG TAB 1 qODay x 2 doses DIFLUCAN 150 MG TAB 710631 FLUCONAZOLE Inactive PREDNISONE 20 MG TAB 2 tabs daily for 3 days, 1 t ab daily for 3 days, 1/2 tab daily for 2 days PREDNISONE 20 MG TAB 674615 PREDNISON E Inactive AUGMENTIN 875-125 MG TAB 1 tab by mouth twice daily with food 21/10/13 AUGMENTIN 875-125 MG TAB 408659 AMOXICILLIN-POT CLAVULA [place] Inactive Advance Directives Directive Description Start Date PERMISSION TO SHARE Immunizations Vaccine Administration Date Value Standard Alf cription Seasonal influenza vaccine, injectable, containing preservative, for > 3 years old (Afluria, FluLaval, Fluzone, Fluvirin, Fluarix, Agriflu(>= 18 yo)) Fluzone (>3 yrs.) [[id number]] Influenza, seasonal, inject able Seasonal influenza vaccine, injectable, preservative free, for > 3 years old (Afluria, FluLaval, Fluzone, Fluvirin, Fluarix, Agriflu(>= 18 yo)) Fluzone preservative free (>3 yrs.) [[id number]] Influenza, seasonal, injectable, preservative free Seasonal influenza vaccine, injectable, containing preservative, for > 3 years old (Afluria, FluLaval, Fluzone, Fluvirin, Fluarix, Agriflu(>= 18 yo)) Fluzone (>3 yrs.) [[id number]] Influenza, seasonal, inject able Seasonal influenza vaccine, injectable, containing preservative, for > 3 years old (Afluria, FluLaval, Fluzone, Fluvirin, Fluarix, Agriflu(>= 18 yo)) Fluzone (>3 yrs.) [[id number]] Influenza, seasonal, inject able dT (Diphtheria and [...] Panel - Chemistry sodium, serum 142 mmol/L 949-868 6659/05/12 potassium, serum 4.8 mmol/L 3.5-5.2 chloride, serum [...] Panel - Chemistry cholesterol, serum 165 mg/dL 646-724 1010/05/12 triglyceride, serum, fasting 524 mg/dL 30-200 HDL [...] negative Encounters Code Encounter Date Provider Facility CPT-20336 Level 3 Est. Patient 14:29:53 CDT Abhinav Galvan MD [facility] CPT-27093 Level 2 Est. Patient 16:33:01 CDT Kalpesh goins MD [facility] CPT-09126 Level 4 Est. Patient 16:44:56 CDT Abdirahman Rios MD [facility] CPT-79792 Level 2 Est. Patient 07:49:32 CDT Kalpesh goins MD [facility] CPT-07438 Level 3 New Patient 15:47:11 [employer]IP[employer] Bj huber MD [facility] CPT-78548 Level 4 Est. Patient 14:37:38 [employer]IP[employer] Abdirahman Rios MD [facility] CPT-70880 Level 2 Est. Patient 13:32:17 [employer] Kalpesh goins MD [facility] CPT-82924 Level 3 Est. Patient 17:32:57 [employer]IPPER Edilberto tiwari [facility] CPT-37867 Level 3 Est. Patient 17:22:33 [employer]IPPER Edilberto tiwari [facility] CPT-33361 Level 2 Est. Patient 16:57:09 [employer]IPPER Kalpesh goins MD [facility] CPT-20510 Level 3 Est. Patient 14:03:08 [employer]IP[employer] Abdirahman Rios MD [facility] CPT-89302 Level 3 Est. Patient 18:12:34 CDT Shola Wright [facility] CPT-18654 Level 3 Est. Patient 19:34:46 CDT Shola Wright [facility] CPT-94961 Level 3 Est. Patient 14:19:37 CDT Abdirahman Rios MD [facility] CPT-41953 Level 3 Est. Patient 14:11:58 CDT Kalpesh goins MD [facility]-78860 Level 3 Est. Patient 16:50:00 CDT [facility] Level 3 Est. Patient 17:11:32 [employer] Brandie bates MD PhD [facility] CPT-33701 Level 3 Est. Patient 16:31:47 [employer] Shola Wright [facility] CPT-04432 Level 3 Est. Patient 17:51:10 [employer] Abhinav Galvan MD [facility] CPT-08841 Level 4 Est. Patient 12:54:56 [employer] Kalpesh goins MD [facility]-97807 Level 4 Est. Patient 12:53:56 [employer] Kalpesh goins MD [facility] CPT-20783 Level 3 Est. Patient 17:56:58 CDT Shola Wright [facility] CPT-40206 Level 3 Est. Patient 14:26:20 CDT Janak butcher [facility] CPT-66227 Level 3 Est. Patient 09:38:41 CDT Shola Wright [facility] CPT-44873 Level 3 Est. Patient 14:45:26 CDT Edilberto W L ee [facility] CPT-36403 Level 3 Est. Patient 10:51:33 CDT [facility]55134 Level 3 Est. Patient 11:57:55 [employer] Shola Wright [facility] CPT-15864 Level 3 Est. Patient 09:53:33 [employer] Edilberto tiwari [facility] CPT-82605 Level 3 Est. Patient 14:42:54 [employer] Abhinav Galvan MD [facility] CPT-26758 Level 3 Est. Patient 15:10:02 CDT Janak butcher [facility] CPT-58432 Level 3 Est. Patient 15:20:20 CDT Theo dennis MD [facility] CPT-50989 Level 2 Est. Patient 14:08:57 CDT Kalpesh goins MD [facility] CPT-19416 Level 3 Est. Patient 13:56:19 CDT Abdirahman Rios MD [facility] CPT-37467 Level 3 Est. Patient 13:59:37 CDT Abdirahman Rios MD [facility] CPT-48711 Level 2 Est. Patient 14:44:59 CDT Kalpesh goins MD [facility] CPT-68630 Level 3 Est. Patient 06:06:23 CDT Edilberto tiwari [facility] CPT-85246 Level 3 Est. Patient 15:23:54 CDT Abdirahman Rios MD [facility] CPT-19106 Level 3 Est. Patient 15:43:49 CDT Abdirahman Rios MD [facility] CPT-11776 Level 3 Est. Patient 12:46:47 [employer] Abdirahman Rios MD [facility] CPT-73553 Level 3 Est. Patient 08:13:35 [employer] Abdirahman Rios MD [facility] CPT-60164 Level 2 Est. Patient 09:36:42 [employer] Abdirahman Rios MD [facility] CPT-14456 Level 3 Est. Patient 10:56:43 CDT Abdirahman Rios MD [facility] CPT-24314 Level 3 Est. Patient 18:24:52 CDT Abdirahman Rios MD [facility] CPT-71267 Level 3 Est. Patient 13:27:22 CDT Abdirahman Rios MD [facility] Procedures Code Procedure Name Date Entry Date Standard Desc ription CPT-96886 Venipuncture Draw Fee 14:27:29 CDT CPT-61270 Postop F/U Visit 15:27:43 CDT CPT-52030 Postop F/U Visit 14:40:59 CDT CPT-81596 Postop F/U Visit 15:02:46 CDT CPT-39532 Postop F/U Visit 11:29:00 [employer] CPT-J0696 Rocephin 1000 mg (Ceftriaxone) 17:22:33 [employer] CPT-49306 Postop F/U Visit 18:41:07 [employer] CPT-12112 Postop F/U Visit 08:19:08 [employer] CPT-19635 Immunization Single Admin 16:41:53 CDT 2013 CPT-58570 Fluzone Quadrivalent Intramuscular Suspe nsion 0.5 ML 16:41:53 CDT CPT-OV Office Visit 16:39:18 CDT CPT-OV Office Visit 16:16:36 CDT CPT-OV Office Visit 15:34:48 CDT CPT-70614 Postop F/U Visit 14:50:12 CDT CPT-54178 Postop F/U Visit 14:41:10 CDT CPT-79526 Venipuncture Draw Fee 11:38:04 [employer] CPT-04424 Postop F/U Visit 19:02:59 [employer] CPT-24185 Postop F/U Visit 12:04:54 [employer] CPT-83017 Administration single or combination vac cine inc oral 15:56:43 CDT CPT-87914 Influenza split virus > age 3 15:56:43 CDT CPT-75082 Hand comp min 3V 14:25:19 CDT CPT-49505 Postop F/U Visit 21:40:51 CDT CPT-76037 Postop F/U Visit 10:58:43 CDT CPT-90531 Administration single or combination vac cine inc oral 12:33:54 [employer] CPT-03322 Influenza Preservative Free split virus >age 3 12:33:54 [employer] CPT-05728 Administration single or combination vac cine inc oral 09:30:51 CDT CPT-18148 Influenza split virus > age 3 09:30:51 CDT CPT-78063 Postop F/U Visit 15:14:53 CDT CPT-75088 Postop F/U Visit 13:50:14 CDT CPT-79584 Postop F/U Visit 13:34:52 CDT CPT-OV Office Visit 16:55:03 CDT CPT-96588 Clyde of cervix w bx ECC 13:32:50 CDT 10/19 CPT-J1885 Toradol 60 mg (Ketorolac) 15:31:59 CDT 2011 CPT-J1885 Toradol 60 mg (Ketorolac) 15:23:54 CDT 2011 CPT-96347 Visit 11:34:37 [employer] CPT-80830 Visit 10:52:39 [employer] CPT-58618 Visit 10:12:02 [employer] CPT-44807 Visit 11:22:43 [employer] CPT-26782 Visit 11:24:12 [employer] CPT-42408 Visit 10:47:05 [employer] CPT-OV Office Visit 10:26:16 [employer] CPT-OV Office Visit 15:34:31 [employer] CPT-46811 Visit 10:42:08 [employer] CPT-14741 Visit 10:52:45 [employer] CPT-000 Give Appropriate Flu Vaccine 16:56:41 CDT 2 CPT-53469 Administration single or combination vac cine inc oral 10:33:21 CDT CPT-11312 Influenza split virus > age 3 10:33:21 CDT CPT-61188 Visit 13:23:09 CDT CPT-51731 Visit 18:24:52 CDT CPT-18512 Sono OB comp > 14 weeks 12:07:49 CDT 04/07
--- OUTSIDE RECORDS SUMMARY | 2020-01-18 16:29 | XMS REPORT | Clinical Summary ---
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 Abscess of anal and rectal regions Hypertriglyceridemia [...] 1 po qHS PRN Insomnia TRAZODONE HCL 93863455264 Active Abdirahman Rios MD Active CYMBALTA 30 MG CPEP 1 cap by mouth daily DULOXE CLEO HCL 02295854253 Active Abdirahman Rios MD Active EMLA 2.5-2.5 % EXT CREA apply to skin lesion q 6 hours, prn 2014 LIDOCAINE-PRILOCAINE 77733381341 No Longer Active Abidrahman Rios MD Active HYDROCODONE-ACETAMINOPHEN 5-325 MG TABS 1 po q6hr PRN pain HYDROCODONE-ACETAMINOPHEN 15185820516 Active Abdirahman Rios MD Active PERCOCET 10-325 MG ORAL TABS 1 every 4 hours as needed OXYCODONE-ACETAMINOPHEN 89093706506 No Longer Active Abdirahman Rios MD Active [id number] 50-325-40 MG ORAL CAPS 1-2 po TID WA N Headache [id number] 57329755279 Active Abdirahman Rios MD Active AUGMENTIN 875-125 MG TAB 1 tab by mouth twice daily with food 20 21/10/13 AMOXICILLIN-POT CLAVULANATE 41001326726 No Longer Active Ursula jasmina Frazell GENERAL [employer] Active PROAIR HFA 108 (90 BASE) MCG/ACT AERS 2 puff q 4-6 hrs PRN 01/24 ALBUTEROL SULFATE 66344054944 No Longer Active Kalpesh Dong MD Active ALPRAZOLAM 0.5 MG TABS 1 po BID PRN Anxiety ALPRA ZOLAM 34394768378 Active Abdirahman Rios MD Active CYCLOBENZAPRINE HCL 10 MG TABS 1 tablet by mouth three times daily as needed for muscle spasm/pain CYCLOBENZAPRINE HCL 40797748844 Active Abdirahman Rios MD Active PREDNISONE 20 MG TAB 2 tabs daily for 3 days, 1 t ab daily for 3 days, 1/2 tab daily for 2 days PREDNISONE 60530999171 No Longer Active Abdirahman Rios MD Active KEFLEX 500 MG CAP 1 po qid CEPHALEXIN 666960404 20 No Longer Active Kalpesh Dong MD Active PERCOCET 5-325 MG TAB 1 every 6 hours as needed OXYCODONE-ACETAMINOPHEN 32484167272 No Longer Active Shola MCGILL Active LC-5 LIDOCAINE 5 % CREA apply 1 time daily to affected area 2013 LIDOCAINE (ANORECTAL) 77545009044 No Longer Active Hira muniz GENERAL II [employer] Active HYDROCODONE-ACETAMINOPHEN 10-325 MG TABS 1 by mouth ev chaka 8 hours as needed for pain HYDROCODONE-ACETAMINOPHEN 58269905414 No Longer Active 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 LORATADINE 10 MG TABS 1 tablet by mouth daily L ORATADINE 57202779800 No Longer Active 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 DIFLUCAN 150 MG TAB 1 qODay x 2 doses FLUCONAZO LE 80044460412 No Longer Active 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 On for 12 hrs, off for 12 hrs. LIDOCAINE 78393419881 No Longer Active Abdirahman Rios MD Active PERCOCET 7.5-325 MG TABS 1 PO q 8 hrs PRN pain OXYCODONE-ACETAMINOPHEN 98450432394 No Longer Active Shola MCGILL Active HYDROCODONE-ACETAMINOPHEN 7.5-325 MG TABS 1 by mouth e very 6 hours as needed for pain HYDROCODONE-ACETAMINOPHEN 90677532717 No Longer Active Good Julian MD Active CLINDAMYCIN HCL 300 MG CAPS 1 po QID x 7 days CLINDAMYCIN HCL 33184539866 No Longer Active Abdirahman Rios MD Activ e BACTRIM DS 800-160 MG TABS 1 po BID x 7 days 5 SULFAMETHOXAZOLE-TRIMETHOPRIM 75517721433 No Longer Active Abdirahman Rios MD Active ENDOCET 10-325 MG TABS 1 q 6 hr prn OXYCODONE-ACETAMINOPHEN 02186684248 No Longer Active Abdirahman Rios MD Active IBUPROFEN 800 MG TABS 1 tid prn IBUPROFEN 728717 11925 No Longer Active Abdirahman Rios MD Active BACTRIM DS 800-160 MG TABS by mouth twice a day 11/05 SULFAMETHOXAZOLE-TRIMETHOPRIM 05055408243 No Longer Active Good Julian MD Active HYDROCODONE-ACETAMINOPHEN 7.5-325 MG TABS 1 four times a day as needed for pain HYDROCODONE-ACETAMINOPHEN 46963299299 No Longer Activ crystal Julian MD Active KEFLEX 500 MG CAP 1 tab po tid CEPHALEXIN 928079 58727 No Longer Active Hira Moser APRN Active IBUPROFEN 800 MG TAB 1 pill three times daily as needed for pain IBUPROFEN 79025227903 No Longer Active Kalpesh Dong MD Active PROMETHAZINE-CODEINE 6.25-10 MG/5ML SYRP 1 tsp every 6 hrs prn c ough PROMETHAZINE-CODEINE 61971878470 No Longer Active Kalpesh Carr Active HYDROCODONE-ACETAMINOPHEN 5-325 MG TABS 1 tab by mouth every 6 hours as needed HYDROCODONE-ACETAMINOPHEN 52992147559 No Longer Activ e Shola MCGILL Active CEPHALEXIN 500 MG CAPS 1 PO bid x 7 days CEPHAL EXIN 95345770223 No Longer Active Shola MCGILL Active BACTRIM DS 800-160 MG TAB 1 tab by mouth twice daily 2 TRIMETHOPRIM-SULFAMETHOXAZOLE 24506695856 No Longer Active Kalpesh Dong MD Active HYDROCODONE-ACETAMINOPHEN 5-325 MG TABS 1 PO tid PRN pain 5 HYDROCODONE-ACETAMINOPHEN 06229052973 No Longer Active Abhinav Galvan MD Active IMPLANON 68 MG IMPL IMPLANTED IN LEFT ARM ETONO GESTREL 39948298284 No Longer Active Hira Moser APRN Active AMOXICILLIN 500 MG TABS 2 tabs PO bid x 10 d AM OXICILLIN 06300503185 No Longer Active Kalpesh Dong MD Active LEVAQUIN 500 MG TABS 1 PO q day x 7 days LEVOFL OXACIN 75824690861 No Longer Active Shola MCGILL Active AMITRIPTYLINE HCL 25 MG TAB 1 tab by mouth daily 60 minutes before bedtime AMITRIPTYLINE HCL 74843489858 No Longer Active Shola MCGILL Active LORTAB 5 5-500 MG TABS 1/2 to 1 tablet by mouth go ry 6 hours as needed for pain HYDROCODONE-ACETAMINOPHEN 95832004522 No Longer Active Shola MCGILL Active CEPHALEXIN 500 MG TABS Take one by mouth four times daily, morning, noon, early evening and bedtime. CEPHALEXIN 72790806882 No Long er Active Hira Moser APRN Active TYLENOL/CODEINE #3 300-30 MG TAB 1-2 po q6hr PRN Pain ACETAMINOPHEN-CODEINE 44534341038 No Longer Active Edilberto Marino DO Active PRISTIQ 50 MG PI02I-IDX 1 po qd DESVENLAFAXI NE SUCCINATE 78195541864 No Longer Active Edilberto Marino DO Active PENICILLIN V POTASSIUM 500 MG TAB 1 four times a day 2 PENICILLIN V POTASSIUM 07109896884 No Longer Active Edilberto Marino DO Active DOXYCYCLINE HYCLATE 100 MG CAPS Take one (1) tablet by mouth twice a day DOXYCYCLINE HYCLATE 16165443637 No Longer Active Ronnie Galvan MD Active HYDROCODONE-ACETAMINOPHEN 5-325 MG TABS 1 po q 6hr PRN Pain 2011 HYDROCODONE-ACETAMINOPHEN 29965733240 No Longer Active Patri joan Perez RN Active BACTRIM DS 800-160 MG TAB 1 tab by mouth twice daily 2 TRIMETHOPRIM-SULFAMETHOXAZOLE 05396451882 No Longer Active Kalpesh Dong MD Active LORTAB 5 5-500 MG TABS 1/2 to 1 tablet by mouth go ry 4 hours as needed for pain HYDROCODONE-ACETAMINOPHEN 46252549110 No Longer Active Kalpesh Dong MD Active GENERESS FE 0.8-25 MG-MCG CHEW Take one by mouth daily NORETHIN-ETH ESTRADIOL-FE 64954632325 No Longer Active Kalpesh Dong MD Active HYDROCODONE-ACETAMINOPHEN 7.5-500 MG TABS 1-2 every 4 hours as needed HYDROCODONE-ACETAMINOPHEN 28580775027 No Longer Activ e Kalpesh Dong MD Active FERROUS SULFATE 325 (65 FE) MG TABS 1 tablet by mouth twice yung y FERROUS SULFATE 54644667596 No Longer Active Kalpesh Dong MD Active IBUPROFEN 600 MG TAB 1 po q6-8hr PRN IBUPROFEN 79575317419 No Longer Active Kalpesh Dnog MD Active SPIRONOLACTONE 25 MG TAB 1 tablet by mouth daily 01/22 SPIRONOLACTONE 06981505126 No Longer Active Kalpesh Dong MD Acti ve HYDROCODONE-ACETAMINOPHEN 7.5-325 MG TABS 1 po QID PRN Pain 2011 HYDROCODONE-ACETAMINOPHEN 12348425193 No Longer Active Kalpesh Dong MD Active CLINDAMYCIN HCL 300 MG CAPS 1 po q6hr x 7 days CLINDAMYCIN HCL 71558477330 No Longer Active Edilberto Marino DO Active PREDNISONE 20 MG TAB 2 tabs daily for 4 days, 1 t ab daily for 4 days, 1/2 tab daily for 4 days PREDNISONE 69576951272 No Longer Active Edilberto Marino DO Active PERCOCET 5-325 MG TABS 1 tablet by mouth every 6 hours as ne eded for pain OXYCODONE-ACETAMINOPHEN 38476639511 No Longer Active Abdirahman Rios MD Active VITAMINS TABS Take one by mouth daily MV & MIN W/FE-FA TABS 35551709030 No Longer Active Abdirahman Rios MD Active LUIS 3-0.02 MG TABS 1 tablet by mouth daily as directed DROSPIRENONE-ETHINYL ESTRADIOL 12002281727 No Longer Active Abdirahman Rios MD Active LORATADINE 10 MG TABS 1 tablet by mouth daily L ORATADINE 84453548182 No Longer Active Kalpesh Dong MD Active HYDROCODONE-ACETAMINOPHEN 5-325 MG TABS 1 po q 6hr PRN Pain 2010 HYDROCODONE-ACETAMINOPHEN 13372732695 No Longer Active Edilberto Marino DO Active BACTRIM DS 800-160 MG TAB 1 tab by mouth twice daily 2 TRIMETHOPRIM-SULFAMETHOXAZOLE 47697288247 No Longer Active Abdirahman Rios MD Active 28-0.8 MG TABS Take one by mouth daily 09/20 VIT-FE FUMARATE-FA 31900875645 No Longer Active Abdirahman Rios MD Active CIPRO 500 MG TAB 1 tablet by mouth twice daily CIPROFLOXACIN HCL 56290543677 No Longer Active Abdirahman Rios MD Active BENADRYL 25 MG CAP 1 po q8hr PRN Congestion DIPHENHYDRAMINE HCL 58164035388 No Longer Active Abdirahman Rios MD Active ZOLOFT 50 MG TAB 1 po qd SERTRALINE HCL 315098 71322 No Longer Active Abdirahman Rios MD Active AMOXICILLIN 875 MG TABS 1 tab by mouth twice daily 201 08/09/13 AMOXICILLIN 51134820322 No Longer Active Abdirahman Rios MD Activ e AMOXICILLIN 875 MG TABS 1 tab by mouth twice daily 201 07/19/27 AMOXICILLIN 03846369825 No Longer Active Abdirahman Rios MD Activ e BACTRIM DS 800-160 MG TAB 2 tab by mouth twice daily 2 TRIMETHOPRIM-SULFAMETHOXAZOLE 39490684845 No Longer Active Abdirahman Rios MD Active KEFLEX 500 MG CAP 1 po tid x 10 days CEPHALEXIN 54205067435 No Longer Active Abdirahman Rios MD Active AMOXICILLIN 875 MG TABS 1 tab by mouth twice daily 201 07/18/07 AMOXICILLIN 41644352193 No Longer Active Abdirahman Rios MD Activ e BACTRIM DS 800-160 MG TAB 2 tab by mouth twice daily 2 BACTRIM DS 800-160 MG TAB TRIMETHOPRIM-SULFAMETHOXAZOLE Inactive ZOLOFT 50 MG TAB 1 po qd ZOLOFT 50 MG TAB 3129 41 SERTRALINE HCL Inactive BENADRYL 25 MG CAP 1 po q8hr PRN Congestion BENADRYL 25 MG CAP 1515361 DIPHENHYDRAMINE HCL Inactive 28-0.8 MG TABS Take one by mouth daily 09/20 28-0.8 MG TABS VIT-FE FUMARATE-FA Inactive HYDROCODONE-ACETAMINOPHEN 5-325 MG TABS 1 po q 6hr PRN Pain 2010 HYDROCODONE-ACETAMINOPHEN 5-325 MG TABS 492933 HYDROCODONE-ACETAMINOPHEN Inactive LORATADINE 10 MG TABS 1 tablet by mouth daily LORATADINE 10 MG TABS 436617 LORATADINE Inactive LUIS 3-0.02 MG TABS 1 tablet by mouth daily as directed LUIS 3-0.02 MG TABS DROSPIRENONE-ETHINYL ESTRADIOL Inactive VITAMINS TABS Take one by mouth daily VITAMINS TABS MV & MIN W/FE-FA TABS Inactive PERCOCET 5-325 MG TABS 1 tablet by mouth every 6 hours as ne eded for pain PERCOCET 5-325 MG TABS 5003486 OXYCODONE-ACETAMIN OPHEN Inactive PREDNISONE 20 MG TAB 2 tabs daily for 4 days, 1 t ab daily for 4 days, 1/2 tab daily for 4 days PREDNISONE 20 MG TAB 252880 PREDNISON E Inactive CLINDAMYCIN HCL 300 MG CAPS 1 po q6hr x 7 days CLINDAMYCIN HCL 300 MG CAPS 808309 CLINDAMYCIN HCL Inactive HYDROCODONE-ACETAMINOPHEN 7.5-325 MG TABS 1 po QID PRN Pain 2011 HYDROCODONE-ACETAMINOPHEN 7.5-325 MG TABS 606141 HYDROCODONE-ACETAMINOPHEN Inactive SPIRONOLACTONE 25 MG TAB 1 tablet by mouth daily 01/22 SPIRONOLACTONE 25 MG TAB 096174 SPIRONOLACTONE Inactive IBUPROFEN 600 MG TAB 1 po q6-8hr PRN IBUPROFEN 600 MG TAB 826689 IBUPROFEN Inactive FERROUS SULFATE 325 (65 FE) MG TABS 1 tablet by mouth twice yung y FERROUS SULFATE 325 (65 FE) MG TABS 354755 FERROUS SULF ATE Inactive HYDROCODONE-ACETAMINOPHEN 7.5-500 MG [...] PRN Pain 2011 HYDROCODONE-ACETAMINOPHEN 5-325 MG TABS 764321 HYDROCODONE-ACETAMINOPHEN Inactive DOXYCYCLINE HYCLATE 100 MG CAPS Take one (1) tablet by mouth twice a day DOXYCYCLINE HYCLATE 100 MG CAPS 845643 DOXYCYCLINE HYCLATE Inactive PENICILLIN V POTASSIUM 500 MG TAB 1 four times a day 2 PENICILLIN V POTASSIUM 500 MG TAB 755709 PENICILLIN V POTASSIUM Siri ctive PRISTIQ 50 MG [id number] 1 po qd PRISTIQ 50 MG [id number] DESVENLAFAXINE SUCCINATE Inactive TYLENOL/CODEINE #3 300-30 MG TAB 1-2 po q6hr PRN Pain TYLENOL/CODEINE #3 300-30 MG TAB 733318 ACETAMINOPHEN-CODEINE Inact krishna CEPHALEXIN 500 MG TABS Take one by mouth four times daily, morning, noon, early evening and bedtime. CEPHALEXIN 500 MG TABS 393265 CEPHALEXIN Inactive LORTAB 5 5-500 MG TABS 1/2 to 1 tablet by mouth go ry 6 hours as needed for pain LORTAB 5 5-500 MG TABS HYDROCODONE-A CETAMINOPHEN Inactive AMITRIPTYLINE HCL 25 MG TAB 1 tab by mouth daily 60 minutes before bedtime AMITRIPTYLINE HCL 25 MG TAB 419953 AMITRIPTYLINE HCL Inactive AMOXICILLIN 500 MG TABS 2 tabs PO bid x 10 d 7 AMOXICILLIN 500 MG TABS 504084 AMOXICILLIN Inactive IMPLANON 68 MG IMPL IMPLANTED IN LEFT ARM IMPLANON 68 MG IMPL ETONOGESTREL Inactive HYDROCODONE-ACETAMINOPHEN 5-325 MG TABS 1 PO tid PRN pain 5 HYDROCODONE-ACETAMINOPHEN 5-325 MG TABS 694427 HYDROCODONE-ACETAMIN OPHEN Inactive BACTRIM DS 800-160 MG TAB 1 tab by mouth twice daily 2 BACTRIM DS 800-160 MG TAB TRIMETHOPRIM-SULFAMETHOXAZOLE Inac tive CEPHALEXIN 500 MG CAPS 1 PO bid x 7 days CEPHALEXIN 500 MG CAPS 272262 CEPHALEXIN Inactive HYDROCODONE-ACETAMINOPHEN 5-325 MG TABS 1 tab by mouth every 6 hours as needed HYDROCODONE-ACETAMINOPHEN 5-325 MG TABS 746691 HYDROCODONE-ACETAMINOPHEN Inactive PROMETHAZINE-CODEINE 6.25-10 MG/5ML SYRP 1 tsp every 6 hrs prn c ough PROMETHAZINE-CODEINE 6.25-10 MG/5ML SYRP 318131 PROMETH AZINE-CODEINE Inactive IBUPROFEN 800 MG TAB 1 pill three times daily as needed for pain IBUPROFEN 800 MG TAB 649198 IBUPROFEN Inactive KEFLEX 500 MG CAP 1 tab po tid KEFLEX 500 MG CAP 717440 CEPHALEXIN Inactive HYDROCODONE-ACETAMINOPHEN 7.5-325 MG TABS 1 four times a day as needed for pain HYDROCODONE-ACETAMINOPHEN 7.5-325 MG TABS 941197 HYDROCODONE-ACETAMINOPHEN Inactive BACTRIM DS 800-160 MG TABS by mouth twice a day 11/05 BACTRIM DS 800-160 MG TABS SULFAMETHOXAZOLE-TRIMETHOPRIM Inactive IBUPROFEN 800 MG TABS 1 tid prn IBUPROFEN 800 MG TABS 065452 IBUPROFEN Inactive ENDOCET 10-325 MG TABS 1 q 6 hr prn ENDOC ET 10-325 MG TABS 9983654 OXYCODONE-ACETAMINOPHEN Inactive HYDROCODONE-ACETAMINOPHEN 7.5-325 MG TABS 1 by mouth e very 6 hours as needed for pain HYDROCODONE-ACETAMINOPHEN 7.5-325 MG TABS 340055 HYDROCODONE-ACETAMINOPHEN Inactive PERCOCET 7.5-325 MG TABS 1 PO q 8 hrs PRN pain PERCOCET 7.5-325 MG TABS 8990683 OXYCODONE-ACETAMINOPHEN Inactive LIDODERM 5 % PTCH One patch to painful area [place] N. On for 12 hrs, off for 12 hrs. LIDODERM 5 % PTCH 6372265 LIDOCAINE Inactiv e PERCOCET 7.5-325 MG TABS 1 PO tid PRN pain PERCOCET 7.5- 325 MG TABS 5154342 OXYCODONE-ACETAMINOPHEN Inactive MOBIC 15 MG TABS 1 tab daily MOBIC 15 MG TABS 15 2695 MELOXICAM Inactive CYCLOBENZAPRINE HCL 10 MG TABS 1/2 - 1 tab PO tid PRN back p ain, muscle spasm CYCLOBENZAPRINE HCL 10 MG TABS 378428 CYCLOBENZA JOSEPH HCL Inactive LORATADINE 10 MG TABS 1 tablet by mouth daily LORATADINE 10 MG TABS 897904 LORATADINE Inactive HYDROCODONE-ACETAMINOPHEN 10-325 MG TABS 1 by mouth ev chaka 8 hours as needed for pain HYDROCODONE-ACETAMINOPHEN 10-325 MG TABS 306048 HYDROCODONE-ACETAMINOPHEN Inactive LC-5 LIDOCAINE 5 % CREA apply 1 time daily to affected area 2013 LC-5 LIDOCAINE 5 % CREA LIDOCAINE (ANORECTAL) In active PERCOCET 5-325 MG TAB 1 every 6 hours as needed PERCOCET 5-325 MG TAB 0667460 OXYCODONE-ACETAMINOPHEN Inactive KEFLEX 500 MG CAP 1 po qid KEFLEX 500 MG CAP 30 9114 CEPHALEXIN Inactive PROAIR HFA 108 (90 BASE) MCG/ACT AERS 2 puff q 4-6 hrs PRN 01/24 PROAIR HFA 108 (90 BASE) MCG/ACT AERS ALBUTEROL SULFATE Inactive PERCOCET 10-325 MG ORAL TABS 1 every 4 hours as needed PERCOCET 10-325 MG ORAL TABS 0103815 OXYCODONE-ACETAMINOPHEN Inactiv e EMLA 2.5-2.5 % EXT CREA apply to skin lesion q 6 hours, prn 2014 EMLA 2.5-2.5 % EXT CREA 519760 LIDOCAINE-PRILOCAINE Siri ctive AMOXICILLIN 875 MG TABS 1 tab by mouth twice daily 201 07/18/07 AMOXICILLIN 875 MG TABS 816159 AMOXICILLIN Inactive KEFLEX 500 MG CAP 1 po tid x 10 days KEFLEX 500 MG CAP 870422 CEPHALEXIN Inactive AMOXICILLIN 875 MG TABS 1 tab by mouth twice daily 201 07/19/27 AMOXICILLIN 875 MG TABS 603384 AMOXICILLIN Inactive AMOXICILLIN 875 MG TABS 1 tab by mouth twice daily 201 08/09/13 AMOXICILLIN 875 MG TABS 023583 AMOXICILLIN Inactive CIPRO 500 MG TAB 1 tablet by mouth twice daily CIPRO 500 MG TAB 097417 CIPROFLOXACIN HCL Inactive BACTRIM DS 800-160 MG TAB 1 tab by mouth twice daily 2 BACTRIM DS 800-160 MG TAB TRIMETHOPRIM-SULFAMETHOXAZOLE Inac tive LEVAQUIN 500 MG TABS 1 PO q day x 7 days LEVAQUIN 500 MG TABS 281569 LEVOFLOXACIN Inactive CLINDAMYCIN HCL 300 MG CAPS 1 po QID x 7 days CLINDAMYCIN HCL 300 MG CAPS 465361 CLINDAMYCIN HCL Inactive AUGMENTIN 875-125 MG TAB 1 tab by mouth twice daily with food 20 22/05/07 AUGMENTIN 875-125 MG TAB 893723 AMOXICILLIN-POT CLAVULA [place] Inactive DIFLUCAN 150 MG TAB 1 qODay x 2 doses DIFLUCAN 150 MG TAB 383449 FLUCONAZOLE Inactive PREDNISONE 20 MG TAB 2 tabs daily for 3 days, 1 t ab daily for 3 days, 1/2 tab daily for 2 days PREDNISONE 20 MG TAB 734806 PREDNISON E Inactive AUGMENTIN 875-125 MG TAB 1 tab by mouth twice daily with food 20 21/10/13 AUGMENTIN 875-125 MG TAB 371069 AMOXICILLIN-POT CLAVULA [place] Inactive Advance Directives Directive Description Start Date PERMISSION TO SHARE Immunizations Vaccine Administration Date Value Standard Alf cription Seasonal influenza vaccine, injectable, containing preservative, for > 3 years old (Afluria, FluLaval, Fluzone, Fluvirin, Fluarix, Agriflu(>= 18 yo)) Fluzone (>3 yrs.) [[id number]] Influenza, seasonal, inject able Seasonal influenza vaccine, injectable, preservative free, for > 3 years old (Afluria, FluLaval, Fluzone, Fluvirin, Fluarix, Agriflu(>= 18 yo)) Fluzone preservative free (>3 yrs.) [[id number]] Influenza, seasonal, injectable, preservative free Seasonal influenza vaccine, injectable, containing preservative, for > 3 years old (Afluria, FluLaval, Fluzone, Fluvirin, Fluarix, Agriflu(>= 18 yo)) Fluzone (>3 yrs.) [[id number]] Influenza, seasonal, inject able Seasonal influenza vaccine, injectable, containing preservative, for > 3 years old (Afluria, FluLaval, Fluzone, Fluvirin, Fluarix, Agriflu(>= 18 yo)) Fluzone (>3 yrs.) [[id number]] Influenza, seasonal, inject able dT (Diphtheria and [...] pressure, diastolic - 8462-4 82 mm[Hg] BP ribeior blood pressure, systolic - 8480-6 132 mm[Hg] [...] Panel - Chemistry sodium, serum 142 mmol/L 217-353 8858/05/12 potassium, serum 4.8 mmol/L 3.5-5.2 chloride, serum [...] Panel - Chemistry cholesterol, serum 165 mg/dL 452-167 6748/05/12 triglyceride, serum, fasting 524 mg/dL 30-200 HDL [...] negative Encounters Code Encounter Date Provider Facility CPT-87873 Level 4 Est. Patient 16:44:56 CDT Abdirahman Rios MD [facility] CPT-59383 Level 2 Est. Patient 07:49:32 CDT Kalpesh goins MD [facility] CPT-52442 Level 3 New Patient 15:47:11 RIVET SORTER Bj huber MD [facility]-45329 Level 4 Est. Patient 14:37:38 RIVET SORTER Abdirahman Rios MD [facility] CPT-75657 Level 2 Est. Patient 13:32:17 RIVET SORTER Kalpesh goins MD [facility] CPT-78420 Level 3 Est. Patient 17:32:57 RIVET SORTER Edilberto tiwari [facility] CPT-35466 Level 3 Est. Patient 17:22:33 RIVET SORTER Edilberto tiwari [facility] CPT-96620 Level 2 Est. Patient 16:57:09 RIVET SORTER Kalpesh goins MD [facility]-45817 Level 3 Est. Patient 14:03:08 RIVET SORTER Abdirahman Rios MD [facility] CPT-64975 Level 3 Est. Patient 18:12:34 CDT Shola Houghsabi [facility] CPT-41137 Level 3 Est. Patient 19:34:46 CDT Shola Houghsabi [facility] CPT-89883 Level 3 Est. Patient 14:19:37 CDT Abdirahman Rios MD [facility] CPT-02584 Level 3 Est. Patient 14:11:58 CDT Kalpesh goins MD [facility] CPT-39944 Level 3 Est. Patient 16:50:00 CDT Michelle MERCADO [facility] CPT-90341 Level 3 Est. Patient 17:11:32 RIVET SORTER Brandie bates MD PhD [facility] CPT-53837 Level 3 Est. Patient 16:31:47 RIVET SORTER Shola Wright [facility] CPT-11107 Level 3 Est. Patient 17:51:10 RIVET SORTER Abhinav Galvan MD [facility] CPT-69643 Level 4 Est. Patient 12:54:56 RIVET SORTER Kalpesh goins MD [facility] CPT-46559 Level 4 Est. Patient 12:53:56 RIVET SORTER Kalpesh goins MD [facility] CPT-63986 Level 3 Est. Patient 17:56:58 CDT Shola Wright [facility] CPT-28912 Level 3 Est. Patient 14:26:20 CDT Janak butcher [facility] CPT-34043 Level 3 Est. Patient 09:38:41 CDT Shola Wright [facility] CPT-13362 Level 3 Est. Patient 14:45:26 CDT Edilberto tiwari DO [facility] CPT-11724 Level 3 Est. Patient 10:51:33 [facility] Level 3 Est. Patient 11:57:55 RIVET SORTER Shola Wright [facility] CPT-89275 Level 3 Est. Patient 09:53:33 RIVET SORTER Edilberto tiwari [facility] CPT-21502 Level 3 Est. Patient 14:42:54 RIVET SORTER Abhinav Galvan MD [facility] CPT-75585 Level 3 Est. Patient 15:10:02 CDT Janak Stevenamira butcher [facility] CPT-05435 Level 3 Est. Patient 15:20:20 CDT Theo dennis MD [facility]-85852 Level 2 Est. Patient 14:08:57 CDT Kalpesh goins MD [facility] CPT-20356 Level 3 Est. Patient 13:56:19 CDT Abdirahman Rios MD [facility] CPT-12342 Level 3 Est. Patient 13:59:37 CDT Abdirahman Rios MD [facility] CPT-21377 Level 2 Est. Patient 14:44:59 CDT Kalpesh goins MD [facility] CPT-22477 Level 3 Est. Patient 06:06:23 CDT Edilberto tiwari [facility] CPT-06058 Level 3 Est. Patient 15:23:54 CDT Abdirahman Rios MD [facility] CPT-05155 Level 3 Est. Patient 15:43:49 CDT Abdirahman Rios MD [facility] CPT-71394 Level 3 Est. Patient 12:46:47 RIVET SORTER Abdirahman Rios MD [facility] CPT-69787 Level 3 Est. Patient 08:13:35 RIVET SORTER Abdirahman Rios MD [facility] CPT-41597 Level 2 Est. Patient 09:36:42 RIVET SORTER Abdirahman Rios MD [facility] CPT-72753 Level 3 Est. Patient 10:56:43 CDT Abdirahman Rios MD [facility] CPT-96161 Level 3 Est. Patient 18:24:52 CDT Abdirahman Rios MD [facility] CPT-53012 Level 3 Est. Patient 13:27:22 CDT Abdirahman Rios MD [facility] Procedures Code Procedure Name Date Entry Date Standard Desc ription CPT-84878 Postop F/U Visit 14:40:59 CDT CPT-48743 Postop F/U Visit 15:02:46 CDT CPT-09031 Postop F/U Visit 11:29:00 RIVET SORTER CPT-J0696 Rocephin 1000 mg (Ceftriaxone) 17:22:33 RIVET SORTER CPT-44109 Postop F/U Visit 18:41:07 RIVET SORTER CPT-18463 Postop F/U Visit 08:19:08 RIVET SORTER CPT-95039 Immunization Single Admin 16:41:53 CDT 2013 CPT-86398 Fluzone Quadrivalent Intramuscular Suspe nsion 0.5 ML 16:41:53 CDT CPT-OV Office Visit 16:39:18 CDT CPT-OV Office Visit 16:16:36 CDT CPT-OV Office Visit 15:34:48 CDT CPT-81257 Postop F/U Visit 14:50:12 CDT CPT-81972 Postop F/U Visit 14:41:10 CDT CPT-54444 Venipuncture Draw Fee 11:38:04 RIVET SORTER CPT-73427 Postop F/U Visit 19:02:59 RIVET SORTER CPT-47502 Postop F/U Visit 12:04:54 RIVET SORTER CPT-97604 Administration single or combination vac cine inc oral 15:56:43 CDT CPT-25024 Influenza split virus > age 3 15:56:43 CDT CPT-36930 Hand comp min 3V 14:25:19 CDT CPT-34861 Postop F/U Visit 21:40:51 CDT CPT-97790 Postop F/U Visit 10:58:43 CDT CPT-48115 Administration single or combination vac cine inc oral 12:33:54 RIVET SORTER CPT-43256 Influenza Preservative Free split virus >age 3 12:33:54 RIVET SORTER CPT-57539 Administration single or combination vac cine inc oral 09:30:51 CDT CPT-85336 Influenza split virus > age 3 09:30:51 CDT CPT-95077 Postop F/U Visit 15:14:53 CDT CPT-15905 Postop F/U Visit 13:50:14 CDT CPT-09265 Postop F/U Visit 13:34:52 CDT CPT-OV Office Visit 16:55:03 CDT CPT-98169 [place] of cervix w bx ECC 13:32:50 CDT 10/19 CPT-J1885 Toradol 60 mg (Ketorolac) 15:31:59 CDT 2011 CPT-J1885 Toradol 60 mg (Ketorolac) 15:23:54 CDT 2011 CPT-89829 Visit 11:34:37 RIVET SORTER CPT-06568 Visit 10:52:39 RIVET SORTER CPT-53000 Visit 10:12:02 RIVET SORTER CPT-20974 Visit 11:22:43 RIVET SORTER CPT-81638 Visit 11:24:12 RIVET SORTER CPT-08339 Visit 10:47:05 RIVET SORTER CPT-OV Office Visit 10:26:16 RIVET SORTER CPT-OV Office Visit 15:34:31 RIVET SORTER CPT-56957 Visit 10:42:08 RIVET SORTER CPT-90226 Visit 10:52:45 RIVET SORTER CPT-000 Give Appropriate Flu Vaccine 16:56:41 CDT 2 CPT-42069 Administration single or combination vac cine inc oral 10:33:21 CDT CPT-28921 Influenza split virus > age 3 10:33:21 CDT CPT-03396 Visit 13:23:09 CDT CPT-21419 Visit 18:24:52 CDT CPT-94480 Sono OB comp > 14 weeks 12:07:49 CDT 04/07
--- OUTSIDE RECORDS SUMMARY | 2020-01-18 16:30 | XMS REPORT | Clinical Summary ---
Author Author Admin, Jeri Rashid Organization [facility] Address Unknown Phone Unavailable Allergies, [...] NEC Abscess, perirectal 566 Active Hira roman ENDOCRINOLOGIST Abscess of anal and rectal regions , [...] Good Julian MD BRONCHITIS, ACUTE ICD-466.0 Inactive Godo Julian MD BACK PAIN ICD-724.5 Inactive Good [...] 1 po TID PRN Pain 3 HYDROCODONE-ACETAMINOPHEN [id number] Active Abdirahman Rios MD Active VWETETHAKA-NHG-HJJGZUAY 50-325-40 MG ORAL CAPS 1-2 po TID AL N Headache [id number] 73576639341 Active Abdirahman Rios MD Active AUGMENTIN 875-125 MG TAB 1 tab by mouth twice daily with food 20 21/10/13 AMOXICILLIN-POT CLAVULANATE 94881840264 No Longer Active Ursula Moser APRN Active PERCOCET 10-325 MG ORAL TABS 1 every 4 hours as needed OXYCODONE-ACETAMINOPHEN 10770884800 Active Hira Moser APRN Active PROAIR HFA 108 (90 BASE) MCG/ACT AERS 2 puff q 4-6 hrs PRN 01/24 ALBUTEROL SULFATE 90377800774 No Longer Active Kalpesh Dong MD Active ALPRAZOLAM 0.5 MG TABS 1 po BID PRN Anxiety ALPRA ZOLAM 28618364588 Active Abdirahman Rois MD Active EMLA 2.5-2.5 % EXT CREA apply to skin lesion q 6 hours, prn LIDOCAINE-PRILOCAINE 67212150747 Active Hira Moser APRN Active CYCLOBENZAPRINE HCL 10 MG TABS 1 tablet by mouth three times daily as needed for muscle spasm/pain CYCLOBENZAPRINE HCL 19623027474 Active Abdirahman Rios MD Active PREDNISONE 20 MG TAB 2 tabs daily for 3 days, 1 t ab daily for 3 days, 1/2 tab daily for 2 days PREDNISONE 43037130346 No Longer Active Abdirahman Rios MD Active KEFLEX 500 MG CAP 1 po qid CEPHALEXIN 561892078 20 No Longer Active Kalpesh Dong MD Active PERCOCET 5-325 MG TAB 1 every 6 hours as needed OXYCODONE-ACETAMINOPHEN 01731519258 No Longer Active Shola MCGILL Active LC-5 LIDOCAINE 5 % CREA apply 1 time daily to affected area 2013 LIDOCAINE (ANORECTAL) 25894188745 No Longer Active Hira garciaell ENDOCRINOLOGIST Active HYDROCODONE-ACETAMINOPHEN 10-325 MG TABS 1 by mouth ev chaka 8 hours as needed for pain HYDROCODONE-ACETAMINOPHEN 49764800617 No Longer Active Jillina Frazell ENDOCRINOLOGIST Active LORATADINE 10 MG TABS 1 tablet by mouth daily L ORATADINE 65792982318 No Longer Active Jillina Frazell ENDOCRINOLOGIST Active DIFLUCAN 150 MG TAB 1 qODay x 2 doses FLUCONAZO LE 16900235687 No Longer Active Jillina Frazell ENDOCRINOLOGIST Active CYCLOBENZAPRINE HCL 10 MG TABS 1/2 - 1 tab PO tid PRN back p ain, muscle spasm CYCLOBENZAPRINE HCL 38431550855 No Longer Active Karen herson Frazell ENDOCRINOLOGIST Active AUGMENTIN 875-125 MG TAB 1 tab by mouth twice daily with food 20 22/05/07 AMOXICILLIN-POT CLAVULANATE 31952128664 No Longer Active Loida Rios MD Active MOBIC 15 MG TABS 1 tab daily MELOXICAM 996580368 14 No Longer Active Abdirahman Rios MD Active PERCOCET 7.5-325 MG TABS 1 PO tid PRN pain OXYCODONE-ACETAMINOPHEN 14023412326 No Longer Active Abdirahman Rios MD Active LIDODERM 5 % PTCH One patch to painful area AL N. On for 12 hrs, off for 12 hrs. LIDOCAINE 63775588396 No Longer Active Abdirahman Rios MD Active PERCOCET 7.5-325 MG TABS 1 PO q 8 hrs PRN pain OXYCODONE-ACETAMINOPHEN 84259532515 No Longer Active Shola MCGILL Active HYDROCODONE-ACETAMINOPHEN 7.5-325 MG TABS 1 by mouth e very 6 hours as needed for pain HYDROCODONE-ACETAMINOPHEN 18416465233 No Longer Active Good Julian MD Active CLINDAMYCIN HCL 300 MG CAPS 1 po QID x 7 days CLINDAMYCIN HCL 07776914806 No Longer Active Abdirahman Rios MD Activ e BACTRIM DS 800-160 MG TABS 1 po BID x 7 days 5 SULFAMETHOXAZOLE-TRIMETHOPRIM 16705519904 No Longer Active Abdirahman Rios MD Active ENDOCET 10-325 MG TABS 1 q 6 hr prn OXYCODONE-ACETAMINOPHEN 43846939952 No Longer Active Abdirahman Rios MD Active IBUPROFEN 800 MG TABS 1 tid prn IBUPROFEN 764636 29623 No Longer Active Abdirahman Rios MD Active BACTRIM DS 800-160 MG TABS by mouth twice a day 11/05 SULFAMETHOXAZOLE-TRIMETHOPRIM 20111835221 No Longer Active Good Julian MD Active HYDROCODONE-ACETAMINOPHEN 7.5-325 MG TABS 1 four times a day as needed for pain HYDROCODONE-ACETAMINOPHEN 54942521584 No Longer Activ e Good Julian MD Active KEFLEX 500 MG CAP 1 tab po tid CEPHALEXIN 742896 98781 No Longer Active Jillina Shanti ENDOCRINOLOGIST Active IBUPROFEN 800 MG TAB 1 pill three times daily as needed for pain IBUPROFEN 35836674430 No Longer Active Kalpesh Dong MD Active PROMETHAZINE-CODEINE 6.25-10 MG/5ML SYRP 1 tsp every 6 hrs prn c ough PROMETHAZINE-CODEINE 44046805700 No Longer Active Kalpesh Carr Active HYDROCODONE-ACETAMINOPHEN 5-325 MG TABS 1 tab by mouth every 6 hours as needed HYDROCODONE-ACETAMINOPHEN 24664110203 No Longer Activ e Shola MCGILL Active CEPHALEXIN 500 MG CAPS 1 PO bid x 7 days CEPHAL EXIN 26725147784 No Longer Active Shola MCGILL Active BACTRIM DS 800-160 MG TAB 1 tab by mouth twice daily 2 TRIMETHOPRIM-SULFAMETHOXAZOLE 88536965085 No Longer Active Kalpesh Dong MD Active HYDROCODONE-ACETAMINOPHEN 5-325 MG TABS 1 PO tid PRN pain 5 HYDROCODONE-ACETAMINOPHEN 71449839705 No Longer Active Abhinav Galvan MD Active IMPLANON 68 MG IMPL IMPLANTED IN LEFT ARM ETONO GESTREL 27140757410 No Longer Active Hira Moser APRN Active AMOXICILLIN 500 MG TABS 2 tabs PO bid x 10 d AM OXICILLIN 22608598411 No Longer Active Kalpesh Dong MD Active LEVAQUIN 500 MG TABS 1 PO q day x 7 days LEVOFL OXACIN 69449733317 No Longer Active Shola MCGILL Active AMITRIPTYLINE HCL 25 MG TAB 1 tab by mouth daily 60 minutes before bedtime AMITRIPTYLINE HCL 35299943228 No Longer Active Shola MCGILL Active LORTAB 5 5-500 MG TABS 1/2 to 1 tablet by mouth go ry 6 hours as needed for pain HYDROCODONE-ACETAMINOPHEN 65452676200 No Longer Active Shola MCGILL Active CEPHALEXIN 500 MG TABS Take one by mouth four times daily, morning, noon, early evening and bedtime. CEPHALEXIN 01785339613 No Long er Active Hira Moser APRN Active TYLENOL/CODEINE #3 300-30 MG TAB 1-2 po q6hr PRN Pain ACETAMINOPHEN-CODEINE 10453597364 No Longer Active Edilberto Marino DO Active PRISTIQ 50 MG [id number] 1 po qd DESVENLAFAXI NE SUCCINATE 31130871217 No Longer Active Edilberto Marino DO Active PENICILLIN V POTASSIUM 500 MG TAB 1 four times a day 2 PENICILLIN V POTASSIUM 83682927484 No Longer Active Edilberto Marino DO Active DOXYCYCLINE HYCLATE 100 MG CAPS Take one (1) tablet by mouth twice a day DOXYCYCLINE HYCLATE 32583230796 No Longer Active Ronnie Galvan MD Active HYDROCODONE-ACETAMINOPHEN 5-325 MG TABS 1 po q 6hr PRN Pain 2011 HYDROCODONE-ACETAMINOPHEN 52224727490 No Longer Active Patri joan Perez RN Active BACTRIM DS 800-160 MG TAB 1 tab by mouth twice daily 2 TRIMETHOPRIM-SULFAMETHOXAZOLE 94478561475 No Longer Active Kalpesh Dong MD Active LORTAB 5 5-500 MG TABS 1/2 to 1 tablet by mouth go ry 4 hours as needed for pain HYDROCODONE-ACETAMINOPHEN 95811080207 No Longer Active Kalpesh Dong MD Active GENERESS FE 0.8-25 MG-MCG CHEW Take one by mouth daily NORETHIN-ETH ESTRADIOL-FE 67514755939 No Longer Active Kalpesh Dong MD Active HYDROCODONE-ACETAMINOPHEN 7.5-500 MG TABS 1-2 every 4 hours as needed HYDROCODONE-ACETAMINOPHEN 63019946841 No Longer Activ e Kalpesh Dong MD Active FERROUS SULFATE 325 (65 FE) MG TABS 1 tablet by mouth twice yung y FERROUS SULFATE 80672766282 No Longer Active Kalpesh Dong MD Active IBUPROFEN 600 MG TAB 1 po q6-8hr PRN IBUPROFEN 32671287217 No Longer Active Kalpesh Dong MD Active SPIRONOLACTONE 25 MG TAB 1 tablet by mouth daily 01/22 SPIRONOLACTONE 51306567600 No Longer Active Kalpesh Dong MD Acti ve HYDROCODONE-ACETAMINOPHEN 7.5-325 MG TABS 1 po QID PRN Pain 2011 HYDROCODONE-ACETAMINOPHEN 96650682346 No Longer Active Kalpesh Dong MD Active CLINDAMYCIN HCL 300 MG CAPS 1 po q6hr x 7 days CLINDAMYCIN HCL 46056286069 No Longer Active Edilberto W Ned DO Active PREDNISONE 20 MG TAB 2 tabs daily for 4 days, 1 t ab daily for 4 days, 1/2 tab daily for 4 days PREDNISONE 84839436095 No Longer Active Edilberto Marino DO Active PERCOCET 5-325 MG TABS 1 tablet by mouth every 6 hours as ne eded for pain OXYCODONE-ACETAMINOPHEN 94790090045 No Longer Active Abdirahman Rios MD Active VITAMINS TABS Take one by mouth daily MV & MIN W/FE-FA TABS 95339641184 No Longer Active Abdirahman Rios MD Active LUIS 3-0.02 MG TABS 1 tablet by mouth daily as directed DROSPIRENONE-ETHINYL ESTRADIOL 34153499758 No Longer Active Abdirahman Rios MD Active LORATADINE 10 MG TABS 1 tablet by mouth daily L ORATADINE 15568826771 No Longer Active Kalpesh Dong MD Active HYDROCODONE-ACETAMINOPHEN 5-325 MG TABS 1 po q 6hr PRN Pain 2010 HYDROCODONE-ACETAMINOPHEN 35475571784 No Longer Active Edilberto Marino DO Active BACTRIM DS 800-160 MG TAB 1 tab by mouth twice daily 2 TRIMETHOPRIM-SULFAMETHOXAZOLE 29905230863 No Longer Active Abdirahman Rios MD Active 28-0.8 MG TABS Take one by mouth daily 09/20 VIT-FE FUMARATE-FA 51310023505 No Longer Active Abdirahman Rios MD Active CIPRO 500 MG TAB 1 tablet by mouth twice daily CIPROFLOXACIN HCL 44530949744 No Longer Active Abdirahman Rios MD Active BENADRYL 25 MG CAP 1 po q8hr PRN Congestion DIPHENHYDRAMINE HCL 29771829368 No Longer Active Abdirahman Rios MD Active ZOLOFT 50 MG TAB 1 po qd SERTRALINE HCL 724889 83698 No Longer Active Abdirahman Rios MD Active AMOXICILLIN 875 MG TABS 1 tab by mouth twice daily 201 08/09/13 AMOXICILLIN 57805064234 No Longer Active Abdirahman Rios MD Activ e AMOXICILLIN 875 MG TABS 1 tab by mouth twice daily 201 07/19/27 AMOXICILLIN 61931496804 No Longer Active Abdirahman Rios MD Activ e BACTRIM DS 800-160 MG TAB 2 tab by mouth twice daily 2 TRIMETHOPRIM-SULFAMETHOXAZOLE 69549925312 No Longer Active Abdirahman Rios MD Active KEFLEX 500 MG CAP 1 po tid x 10 days CEPHALEXIN 28906181189 No Longer Active Abdirahman Rios MD Active AMOXICILLIN 875 MG TABS 1 tab by mouth twice daily 201 07/18/07 AMOXICILLIN 99873948545 No Longer Active Abdirahman Rios MD Activ e BACTRIM DS 800-160 MG TAB 2 tab by mouth twice daily 2 BACTRIM DS 800-160 MG TAB TRIMETHOPRIM-SULFAMETHOXAZOLE Inactive ZOLOFT 50 MG TAB 1 po qd ZOLOFT 50 MG TAB 3129 41 SERTRALINE HCL Inactive BENADRYL 25 MG CAP 1 po q8hr PRN Congestion BENADRYL 25 MG CAP 3754640 DIPHENHYDRAMINE HCL Inactive 28-0.8 MG TABS Take one by mouth daily 09/20 28-0.8 MG TABS VIT-FE FUMARATE-FA Inactive HYDROCODONE-ACETAMINOPHEN 5-325 MG TABS 1 po q 6hr PRN Pain 2010 HYDROCODONE-ACETAMINOPHEN 5-325 MG TABS 470041 HYDROCODONE-ACETAMINOPHEN Inactive LORATADINE 10 MG TABS 1 tablet by mouth daily LORATADINE 10 MG TABS 480093 LORATADINE Inactive LUIS 3-0.02 MG TABS 1 tablet by mouth daily as directed LUIS 3-0.02 MG TABS DROSPIRENONE-ETHINYL ESTRADIOL Inactive VITAMINS TABS Take one by mouth daily VITAMINS TABS MV & MIN W/FE-FA TABS Inactive PERCOCET 5-325 MG TABS 1 tablet by mouth every 6 hours as ne eded for pain PERCOCET 5-325 MG TABS 7629826 OXYCODONE-ACETAMIN OPHEN Inactive PREDNISONE 20 MG TAB 2 tabs daily for 4 days, 1 t ab daily for 4 days, 1/2 tab daily for 4 days PREDNISONE 20 MG TAB 673060 PREDNISON E Inactive CLINDAMYCIN HCL 300 MG CAPS 1 po q6hr x 7 days CLINDAMYCIN HCL 300 MG CAPS 578090 CLINDAMYCIN HCL Inactive HYDROCODONE-ACETAMINOPHEN 7.5-325 MG TABS 1 po QID PRN Pain 2011 HYDROCODONE-ACETAMINOPHEN 7.5-325 MG TABS 600280 HYDROCODONE-ACETAMINOPHEN Inactive SPIRONOLACTONE 25 MG TAB 1 tablet by mouth daily 01/22 SPIRONOLACTONE 25 MG TAB 005997 SPIRONOLACTONE Inactive IBUPROFEN 600 MG TAB 1 po q6-8hr PRN IBUPROFEN 600 MG TAB 018919 IBUPROFEN Inactive FERROUS SULFATE 325 (65 FE) MG TABS 1 tablet by mouth twice yung y FERROUS SULFATE 325 (65 FE) MG TABS 813593 FERROUS SULF ATE Inactive HYDROCODONE-ACETAMINOPHEN 7.5-500 MG [...] PRN Pain 2011 HYDROCODONE-ACETAMINOPHEN 5-325 MG TABS 838448 HYDROCODONE-ACETAMINOPHEN Inactive DOXYCYCLINE HYCLATE 100 MG CAPS Take one (1) tablet by mouth twice a day DOXYCYCLINE HYCLATE 100 MG CAPS 217687 DOXYCYCLINE HYCLATE Inactive PENICILLIN V POTASSIUM 500 MG TAB 1 four times a day 2 PENICILLIN V POTASSIUM 500 MG TAB 470934 PENICILLIN V POTASSIUM [facility] PRISTIQ 50 MG [id number] 1 po qd PRISTIQ 50 MG [id number] DESVENLAFAXINE SUCCINATE Inactive TYLENOL/CODEINE #3 300-30 MG TAB 1-2 po q6hr PRN Pain TYLENOL/CODEINE #3 300-30 MG TAB 466997 ACETAMINOPHEN-CODEINE Inact krishna CEPHALEXIN 500 MG TABS Take one by mouth four times daily, morning, noon, early evening and bedtime. CEPHALEXIN 500 MG TABS 407288 CEPHALEXIN Inactive LORTAB 5 5-500 MG TABS 1/2 to 1 tablet by mouth go ry 6 hours as needed for pain LORTAB 5 5-500 MG TABS HYDROCODONE-A CETAMINOPHEN Inactive AMITRIPTYLINE HCL 25 MG TAB 1 tab by mouth daily 60 minutes before bedtime AMITRIPTYLINE HCL 25 MG TAB 072453 AMITRIPTYLINE HCL Inactive AMOXICILLIN 500 MG TABS 2 tabs PO bid x 10 d 7 AMOXICILLIN 500 MG TABS 174404 AMOXICILLIN Inactive IMPLANON 68 MG IMPL IMPLANTED IN LEFT ARM IMPLANON 68 MG IMPL ETONOGESTREL Inactive HYDROCODONE-ACETAMINOPHEN 5-325 MG TABS 1 PO tid PRN pain 5 HYDROCODONE-ACETAMINOPHEN 5-325 MG TABS 139507 HYDROCODONE-ACETAMIN OPHEN Inactive BACTRIM DS 800-160 MG TAB 1 tab by mouth twice daily 2 BACTRIM DS 800-160 MG TAB TRIMETHOPRIM-SULFAMETHOXAZOLE Inac tive CEPHALEXIN 500 MG CAPS 1 PO bid x 7 days CEPHALEXIN 500 MG CAPS 951029 CEPHALEXIN Inactive HYDROCODONE-ACETAMINOPHEN 5-325 MG TABS 1 tab by mouth every 6 hours as needed HYDROCODONE-ACETAMINOPHEN 5-325 MG TABS 273699 HYDROCODONE-ACETAMINOPHEN Inactive PROMETHAZINE-CODEINE 6.25-10 MG/5ML SYRP 1 tsp every 6 hrs prn c ough PROMETHAZINE-CODEINE 6.25-10 MG/5ML SYRP 366036 PROMETH AZINE-CODEINE Inactive IBUPROFEN 800 MG TAB 1 pill three times daily as needed for pain IBUPROFEN 800 MG TAB 252003 IBUPROFEN Inactive KEFLEX 500 MG CAP 1 tab po tid KEFLEX 500 MG CAP 506877 CEPHALEXIN Inactive HYDROCODONE-ACETAMINOPHEN 7.5-325 MG TABS 1 four times a day as needed for pain HYDROCODONE-ACETAMINOPHEN 7.5-325 MG TABS 155942 HYDROCODONE-ACETAMINOPHEN Inactive BACTRIM DS 800-160 MG TABS by mouth twice a day 11/05 BACTRIM DS 800-160 MG TABS SULFAMETHOXAZOLE-TRIMETHOPRIM Inactive IBUPROFEN 800 MG TABS 1 tid prn IBUPROFEN 800 MG TABS 630760 IBUPROFEN Inactive ENDOCET 10-325 MG TABS 1 q 6 hr prn ENDOC ET 10-325 MG TABS 0830037 OXYCODONE-ACETAMINOPHEN Inactive HYDROCODONE-ACETAMINOPHEN 7.5-325 MG TABS 1 by mouth e very 6 hours as needed for pain HYDROCODONE-ACETAMINOPHEN 7.5-325 MG TABS 954152 HYDROCODONE-ACETAMINOPHEN Inactive PERCOCET 7.5-325 MG TABS 1 PO q 8 hrs PRN pain PERCOCET 7.5-325 MG TABS 7471091 OXYCODONE-ACETAMINOPHEN Inactive LIDODERM 5 % PTCH One patch to painful area AL N. On for 12 hrs, off for 12 hrs. LIDODERM 5 % PTCH 1028483 LIDOCAINE Inactiv e PERCOCET 7.5-325 MG TABS 1 PO tid PRN pain PERCOCET 7.5- 325 MG TABS 9441274 OXYCODONE-ACETAMINOPHEN Inactive MOBIC 15 MG TABS 1 tab daily MOBIC 15 MG TABS 15 2695 MELOXICAM Inactive CYCLOBENZAPRINE HCL 10 MG TABS 1/2 - 1 tab PO tid PRN back p ain, muscle spasm CYCLOBENZAPRINE HCL 10 MG TABS 336181 CYCLOBENZA JOSEPH HCL Inactive LORATADINE 10 MG TABS 1 tablet by mouth daily LORATADINE 10 MG TABS 963159 LORATADINE Inactive HYDROCODONE-ACETAMINOPHEN 10-325 MG TABS 1 by mouth ev chaka 8 hours as needed for pain HYDROCODONE-ACETAMINOPHEN 10-325 MG TABS 292608 HYDROCODONE-ACETAMINOPHEN Inactive LC-5 LIDOCAINE 5 % CREA apply 1 time daily to affected area 2013 LC-5 LIDOCAINE 5 % CREA LIDOCAINE (ANORECTAL) In active PERCOCET 5-325 MG TAB 1 every 6 hours as needed PERCOCET 5-325 MG TAB 8936056 OXYCODONE-ACETAMINOPHEN Inactive KEFLEX 500 MG CAP 1 po qid KEFLEX 500 MG CAP 30 9114 CEPHALEXIN Inactive PROAIR HFA 108 (90 BASE) MCG/ACT AERS 2 puff q 4-6 hrs PRN 01/24 PROAIR HFA 108 (90 BASE) MCG/ACT AERS ALBUTEROL SULFATE Inactive AMOXICILLIN 875 MG TABS 1 tab by mouth twice daily 201 07/18/07 AMOXICILLIN 875 MG TABS 015630 AMOXICILLIN Inactive KEFLEX 500 MG CAP 1 po tid x 10 days KEFLEX 500 MG CAP 276943 CEPHALEXIN Inactive AMOXICILLIN 875 MG TABS 1 tab by mouth twice daily 201 07/19/27 AMOXICILLIN 875 MG TABS 388704 AMOXICILLIN Inactive AMOXICILLIN 875 MG TABS 1 tab by mouth twice daily 201 08/09/13 AMOXICILLIN 875 MG TABS 419751 AMOXICILLIN Inactive CIPRO 500 MG TAB 1 tablet by mouth twice daily CIPRO 500 MG TAB 101892 CIPROFLOXACIN HCL Inactive BACTRIM DS 800-160 MG TAB 1 tab by mouth twice daily 2 BACTRIM DS 800-160 MG TAB TRIMETHOPRIM-SULFAMETHOXAZOLE Inac tive LEVAQUIN 500 MG TABS 1 PO q day x 7 days LEVAQUIN 500 MG TABS 509021 LEVOFLOXACIN Inactive CLINDAMYCIN HCL 300 MG CAPS 1 po QID x 7 days CLINDAMYCIN HCL 300 MG CAPS 556143 CLINDAMYCIN HCL Inactive AUGMENTIN 875-125 MG TAB 1 tab by mouth twice daily with food 20 22/05/07 AUGMENTIN 875-125 MG TAB 130757 AMOXICILLIN-POT CLAVULA [place] Inactive DIFLUCAN 150 MG TAB 1 qODay x 2 doses DIFLUCAN 150 MG TAB 755983 FLUCONAZOLE Inactive PREDNISONE 20 MG TAB 2 tabs daily for 3 days, 1 t ab daily for 3 days, 1/2 tab daily for 2 days PREDNISONE 20 MG TAB 637632 PREDNISON E Inactive AUGMENTIN 875-125 MG TAB 1 tab by mouth twice daily with food 20 21/10/13 AUGMENTIN 875-125 MG TAB 411126 AMOXICILLIN-POT CLAVULA [place] Inactive Advance Directives Directive Description Start Date PERMISSION TO SHARE Immunizations Vaccine Administration Date Value Standard Alf cription Seasonal influenza vaccine, injectable, containing preservative, for > 3 years old (Afluria, FluLaval, Fluzone, Fluvirin, Fluarix, Agriflu(>= 18 yo)) Fluzone (>3 yrs.) [[id number]] Influenza, seasonal, inject able Seasonal influenza vaccine, injectable, preservative free, for > 3 years old (Afluria, FluLaval, Fluzone, Fluvirin, Fluarix, Agriflu(>= 18 yo)) Fluzone preservative free (>3 yrs.) [[id number]] Influenza, seasonal, injectable, preservative free Seasonal influenza vaccine, injectable, containing preservative, for > 3 years old (Afluria, FluLaval, Fluzone, Fluvirin, Fluarix, Agriflu(>= 18 yo)) Fluzone (>3 yrs.) [[id number]] Influenza, seasonal, inject able Seasonal influenza vaccine, injectable, containing preservative, for > 3 years old (Afluria, FluLaval, Fluzone, Fluvirin, Fluarix, Agriflu(>= 18 yo)) Fluzone (>3 yrs.) [[id number]] Influenza, seasonal, inject able dT (Diphtheria and [...] pressure, diastolic - 8462-4 73 mm[Hg] BP rbieiro blood pressure, systolic - 8480-6 127 mm[Hg] [...] Panel - Chemistry sodium, serum 142 mmol/L 634-901 4221/05/12 potassium, serum 4.8 mmol/L 3.5-5.2 chloride, serum [...] Panel - Chemistry cholesterol, serum 165 mg/dL 011-319 4759/05/12 triglyceride, serum, fasting 524 mg/dL 30-200 HDL [...] negative Encounters Code Encounter Date Provider Facility CPT-51230 Level 2 Est. Patient 07:49:32 CDT Kalpesh goins MD [facility] CPT-44646 Level 3 New Patient 15:47:11 PIT FURNACE OPERATOR Bj huber MD [facility] CPT-87940 Level 4 Est. Patient 14:37:38 PIT FURNACE OPERATOR Abdirahman Rios MD [facility] CPT-65194 Level 2 Est. Patient 13:32:17 PIT FURNACE OPERATOR Kalpesh goins MD [facility] CPT-93036 Level 3 Est. Patient 17:32:57 PIT FURNACE OPERATOR Edilberto tiwari [facility] CPT-86728 Level 3 Est. Patient 17:22:33 PIT FURNACE OPERATOR Edilberto tiwari DO [facility] CPT-04013 Level 2 Est. Patient 16:57:09 PIT FURNACE OPERATOR Kalpesh goins MD [facility]-48515 Level 3 Est. Patient 14:03:08 PIT FURNACE OPERATOR Abdirahman Rios MD [facility] CPT-89310 Level 3 Est. Patient 18:12:34 CDT Shola Wright [facility] CPT-28239 Level 3 Est. Patient 19:34:46 CDT Shola Wright [facility] CPT-05952 Level 3 Est. Patient 14:19:37 CDT Abdirahman Rios MD [facility] CPT-01447 Level 3 Est. Patient 14:11:58 CDT Kalpesh goins MD [facility] CPT-76606 Level 3 Est. Patient 16:50:00 [facility] Level 3 Est. Patient 17:11:32 PIT FURNACE OPERATOR Brandie bates MD, PhD [facility] CPT-63769 Level 3 Est. Patient 16:31:47 PIT FURNACE OPERATOR Shola Wright [facility] CPT-51993 Level 3 Est. Patient 17:51:10 PIT FURNACE OPERATOR Abhinav Galvan MD [facility] CPT-48716 Level 4 Est. Patient 12:54:56 PIT FURNACE OPERATOR Kalpesh goins MD [facility] CPT-47436 Level 4 Est. Patient 12:53:56 PIT FURNACE OPERATOR Kalpesh goins MD [facility] CPT-56684 Level 3 Est. Patient 17:56:58 CDT Shola Wright [facility] CPT-27389 Level 3 Est. Patient 14:26:20 CDT Janak butcher [facility] CPT-47218 Level 3 Est. Patient 09:38:41 CDT Shola MCGILL [facility] CPT-36756 Level 3 Est. Patient 14:45:26 CDT Edilberto tiwari [facility] CPT-67981 Level 3 Est. Patient 10:51:33 CD[facility] Level 3 Est. Patient 11:57:55 PIT FURNACE OPERATOR Shola Wright [facility] CPT-37515 Level 3 Est. Patient 09:53:33 PIT FURNACE OPERATOR Edilberto tiwari [facility] CPT-50783 Level 3 Est. Patient 14:42:54 PIT FURNACE OPERATOR Abhinav Galvan MD [facility]-84016 Level 3 Est. Patient 15:10:02 CDT Janak butcher [facility] CPT-41844 Level 3 Est. Patient 15:20:20 CDT Theo dennis MD [facility]-86903 Level 2 Est. Patient 14:08:57 CDT Kalpesh goins MD [facility] CPT-79956 Level 3 Est. Patient 13:56:19 CDT Abdirahman Rios MD [facility] CPT-44651 Level 3 Est. Patient 13:59:37 CDT Abdirahman Rios MD [facility] CPT-58477 Level 2 Est. Patient 14:44:59 CDT Kalpesh goins MD [facility]-50634 Level 3 Est. Patient 06:06:23 CDT Edilberto tiwari [facility] CPT-30626 Level 3 Est. Patient 15:23:54 CDT Abdirahman Rios MD [facility]-82951 Level 3 Est. Patient 15:43:49 CDT Abdirahman Rios MD [facility] CPT-62369 Level 3 Est. Patient 12:46:47 PIT FURNACE OPERATOR Abdirahman Rios MD [facility] CPT-55402 Level 3 Est. Patient 08:13:35 PIT FURNACE OPERATOR Abdirahman Rios MD [facility] CPT-09184 Level 2 Est. Patient 09:36:42 PIT FURNACE OPERATOR Abdirahman Rios MD [facility] CPT-40686 Level 3 Est. Patient 10:56:43 CDT Abdirahman Rios MD [facility] CPT-85620 Level 3 Est. Patient 18:24:52 CDT Abdirahman Rios MD [facility] CPT-54652 Level 3 Est. Patient 13:27:22 CDT Abdirahman Rios MD [facility] Procedures Code Procedure Name Date Entry Date Standard Desc ription CPT-56551 Postop F/U Visit 14:40:59 CDT CPT-16648 Postop F/U Visit 15:02:46 CDT CPT-09760 Postop F/U Visit 11:29:00 PIT FURNACE OPERATOR CPT-J0696 Rocephin 1000 mg (Ceftriaxone) 17:22:33 PIT FURNACE OPERATOR CPT-30349 Postop F/U Visit 18:41:07 PIT FURNACE OPERATOR CPT-43128 Postop F/U Visit 08:19:08 PIT FURNACE OPERATOR CPT-71052 Immunization Single Admin 16:41:53 CDT 2013 CPT-42963 Fluzone Quadrivalent Intramuscular Suspe nsion 0.5 ML 16:41:53 CDT CPT-OV Office Visit 16:39:18 CDT CPT-OV Office Visit 16:16:36 CDT CPT-OV Office Visit 15:34:48 CDT CPT-21317 Postop F/U Visit 14:50:12 CDT CPT-33167 Postop F/U Visit 14:41:10 CDT CPT-86366 Venipuncture Draw Fee 11:38:04 PIT FURNACE OPERATOR CPT-28544 Postop F/U Visit 19:02:59 PIT FURNACE OPERATOR CPT-78768 Postop F/U Visit 12:04:54 PIT FURNACE OPERATOR CPT-35127 Administration single or combination vac cine inc oral 15:56:43 CDT CPT-84965 Influenza split virus > age 3 15:56:43 CDT CPT-44590 Hand comp min 3V 14:25:19 CDT CPT-45434 Postop F/U Visit 21:40:51 CDT CPT-67789 Postop F/U Visit 10:58:43 CDT CPT-90301 Administration single or combination vac cine inc oral 12:33:54 PIT FURNACE OPERATOR CPT-87603 Influenza Preservative Free split virus >age 3 12:33:54 PIT FURNACE OPERATOR CPT-33416 Administration single or combination vac cine inc oral 09:30:51 CDT CPT-56512 Influenza split virus > age 3 09:30:51 CDT CPT-87935 Postop F/U Visit 15:14:53 CDT CPT-77891 Postop F/U Visit 13:50:14 CDT CPT-57679 Postop F/U Visit 13:34:52 CDT CPT-OV Office Visit 16:55:03 CDT CPT-11926 [place] of cervix w bx ECC 13:32:50 CDT 10/19 CPT-J1885 Toradol 60 mg (Ketorolac) 15:31:59 CDT 2011 CPT-J1885 Toradol 60 mg (Ketorolac) 15:23:54 CDT 2011 CPT-97992 Visit 11:34:37 PIT FURNACE OPERATOR CPT-02664 Visit 10:52:39 PIT FURNACE OPERATOR CPT-27078 Visit 10:12:02 PIT FURNACE OPERATOR CPT-95301 Visit 11:22:43 PIT FURNACE OPERATOR CPT-97744 Visit 11:24:12 PIT FURNACE OPERATOR CPT-74404 Visit 10:47:05 PIT FURNACE OPERATOR CPT-OV Office Visit 10:26:16 PIT FURNACE OPERATOR CPT-OV Office Visit 15:34:31 PIT FURNACE OPERATOR CPT-71094 Visit 10:42:08 PIT FURNACE OPERATOR CPT-83095 Visit 10:52:45 PIT FURNACE OPERATOR CPT-000 Give Appropriate Flu Vaccine 16:56:41 CDT 2 CPT-56112 Administration single or combination vac cine inc oral 10:33:21 CDT CPT-42288 Influenza split virus > age 3 10:33:21 CDT CPT-72347 Visit 13:23:09 CDT CPT-16029 Visit 18:24:52 CDT CPT-42134 Sono OB comp > 14 weeks 12:07:49 CDT 04/07
--- OUTSIDE RECORDS SUMMARY | 2020-01-18 16:31 | XMS REPORT | Clinical Summary ---
[...] except fo ot NEUROPATHY 355.9 Resolved Good Juilan MD Mononeuritis of unspecified site FH DIABETES [...] 1 every 4 hours as needed OXYCODONE-ACETAMINOPHEN [id number] Active Kalpesh Dong MD Active PROAIR HFA 108 (90 BASE) MCG/ACT AERS 2 puff q 4-6 hrs PRN 01/24 ALBUTEROL SULFATE 10352255544 No Longer Active Kalpesh Dong MD Active ALPRAZOLAM 0.5 MG TABS 1 po BID PRN Anxiety ALPRA ZOLAM 86286139596 Active Abdirahman Rios MD Active EMLA 2.5-2.5 % EXT CREA apply to skin lesion q 6 hours, prn LIDOCAINE-PRILOCAINE 23174788969 Active Hira Moser APRN Active CYCLOBENZAPRINE HCL 10 MG TABS 1 tablet by mouth three times daily as needed for muscle spasm/pain CYCLOBENZAPRINE HCL 67885573181 Active Abdirahman Rios MD Active PREDNISONE 20 MG TAB 2 tabs daily for 3 days, 1 t ab daily for 3 days, 1/2 tab daily for 2 days PREDNISONE 13116183279 No Longer Active Abdirahman Rios MD Active KEFLEX 500 MG CAP 1 po qid CEPHALEXIN 864714809 20 No Longer Active Kalpesh Dong MD Active PERCOCET 5-325 MG TAB 1 every 6 hours as needed OXYCODONE-ACETAMINOPHEN 09013300128 No Longer Active Shola MCGILL Active LC-5 LIDOCAINE 5 % CREA apply 1 time daily to affected area 2013 LIDOCAINE (ANORECTAL) 46475161503 No Longer Active Hira muniz APRN Active HYDROCODONE-ACETAMINOPHEN 5-325 MG TABS 2 tablets by m outh every 8 hours as needed for pain HYDROCODONE-ACETAMINOPHEN 21797077902 Acti ve Abdirahman Rios MD Active HYDROCODONE-ACETAMINOPHEN 10-325 MG TABS 1 by mouth ev chaka 8 hours as needed for pain HYDROCODONE-ACETAMINOPHEN 28985328565 No Longer Active Hira Moser APRN Active LORATADINE 10 MG TABS 1 tablet by mouth daily L ORATADINE 57957279890 No Longer Active Hira Moser APRN Active DIFLUCAN 150 MG TAB 1 qODay x 2 doses FLUCONAZO LE 50511563399 No Longer Active Jillina Joyzell SENIOR MEDICAL TRANSCRIPTIONIST Active CYCLOBENZAPRINE HCL 10 MG TABS 1/2 - 1 tab PO tid PRN back p ain, muscle spasm CYCLOBENZAPRINE HCL 53851018005 No Longer Active Karen herson Frazell SENIOR MEDICAL TRANSCRIPTIONIST Active AUGMENTIN 875-125 MG TAB 1 tab by mouth twice daily with food 20 22/05/07 AMOXICILLIN-POT CLAVULANATE 30870041407 No Longer Active Loida Rios MD Active MOBIC 15 MG TABS 1 tab daily MELOXICAM 971804741 14 No Longer Active Abdirahman Rios MD Active PERCOCET 7.5-325 MG TABS 1 PO tid PRN pain OXYCODONE-ACETAMINOPHEN 64128396962 No Longer Active Abdirahman Rios MD Active LIDODERM 5 % PTCH One patch to painful area IA N. On for 12 hrs, off for 12 hrs. LIDOCAINE 93673968798 No Longer Active Abdirahman Rios MD Active PERCOCET 7.5-325 MG TABS 1 PO q 8 hrs PRN pain OXYCODONE-ACETAMINOPHEN 08619348894 No Longer Active Shola MCGILL Active HYDROCODONE-ACETAMINOPHEN 7.5-325 MG TABS 1 by mouth e very 6 hours as needed for pain HYDROCODONE-ACETAMINOPHEN 83940236757 No Longer Active Good Julian MD Active CLINDAMYCIN HCL 300 MG CAPS 1 po QID x 7 days CLINDAMYCIN HCL 82270672177 No Longer Active Abdirahman Rios MD Activ e BACTRIM DS 800-160 MG TABS 1 po BID x 7 days 5 SULFAMETHOXAZOLE-TRIMETHOPRIM 89989548169 No Longer Active Abdirahman Rios MD Active ENDOCET 10-325 MG TABS 1 q 6 hr prn OXYCODONE-ACETAMINOPHEN 13260507978 No Longer Active Abdirahman Rios MD Active IBUPROFEN 800 MG TABS 1 tid prn IBUPROFEN 014854 50976 No Longer Active Abdirahman Rios MD Active BACTRIM DS 800-160 MG TABS by mouth twice a day 11/05 SULFAMETHOXAZOLE-TRIMETHOPRIM 24575021540 No Longer Active Good Julian MD Active HYDROCODONE-ACETAMINOPHEN 7.5-325 MG TABS 1 four times a day as needed for pain HYDROCODONE-ACETAMINOPHEN 55491150473 No Longer Activ e Good Julian MD Active KEFLEX 500 MG CAP 1 tab po tid CEPHALEXIN 590842 08885 No Longer Active Matthewllina Shanti RIVAS Active IBUPROFEN 800 MG TAB 1 pill three times daily as needed for pain IBUPROFEN 23571968487 No Longer Active Kalpesh Dong MD Active PROMETHAZINE-CODEINE 6.25-10 MG/5ML SYRP 1 tsp every 6 hrs prn c ough PROMETHAZINE-CODEINE 71858385223 No Longer Active Kalpesh Carr Active HYDROCODONE-ACETAMINOPHEN 5-325 MG TABS 1 tab by mouth every 6 hours as needed HYDROCODONE-ACETAMINOPHEN 03460326240 No Longer Activ e Shola MCGILL Active CEPHALEXIN 500 MG CAPS 1 PO bid x 7 days CEPHAL EXIN 23390142889 No Longer Active Shola MCGILL Active BACTRIM DS 800-160 MG TAB 1 tab by mouth twice daily 2 TRIMETHOPRIM-SULFAMETHOXAZOLE 04574573475 No Longer Active Kalpesh Dong MD Active HYDROCODONE-ACETAMINOPHEN 5-325 MG TABS 1 PO tid PRN pain 5 HYDROCODONE-ACETAMINOPHEN 06532638224 No Longer Active Abhinav Gavlan MD Active IMPLANON 68 MG IMPL IMPLANTED IN LEFT ARM ETONO GESTREL 93222099546 No Longer Active Jillina Shanti ANDRADEN Active AMOXICILLIN 500 MG TABS 2 tabs PO bid x 10 d AM OXICILLIN 54069418056 No Longer Active Kalpesh Dong MD Active LEVAQUIN 500 MG TABS 1 PO q day x 7 days LEVOFL OXACIN 30127443263 No Longer Active Shola MCGILL Active FIORICET 50-325-40 MG TABS 2 PO q 8 hrs PRN FOSTER [id number] Active Abdirahman Rios MD Active AMITRIPTYLINE HCL 25 MG TAB 1 tab by mouth daily 60 minutes before bedtime AMITRIPTYLINE HCL 61165785176 No Longer Active Shola MCGILL Active LORTAB 5 5-500 MG TABS 1/2 to 1 tablet by mouth go ry 6 hours as needed for pain HYDROCODONE-ACETAMINOPHEN 13702103654 No Longer Active Shola MCGILL Active CEPHALEXIN 500 MG TABS Take one by mouth four times daily, morning, noon, early evening and bedtime. CEPHALEXIN 02817305465 No Long er Active Hira Moser APRN Active TYLENOL/CODEINE #3 300-30 MG TAB 1-2 po q6hr PRN Pain ACETAMINOPHEN-CODEINE 71512659060 No Longer Active Edilberto Marino DO Active PRISTIQ 50 MG [id number] 1 po qd DESVENLAFAXI NE SUCCINATE 74533741737 No Longer Active Edilberto Marino DO Active PENICILLIN V POTASSIUM 500 MG TAB 1 four times a day 2 PENICILLIN V POTASSIUM 76968033258 No Longer Active Edilberto Marino DO Active DOXYCYCLINE HYCLATE 100 MG CAPS Take one (1) tablet by mouth twice a day DOXYCYCLINE HYCLATE 76140399900 No Longer Active Ronnie Galvan MD Active HYDROCODONE-ACETAMINOPHEN 5-325 MG TABS 1 po q 6hr PRN Pain 2011 HYDROCODONE-ACETAMINOPHEN 98177034202 No Longer Active Patri joan Lock RN Active BACTRIM DS 800-160 MG TAB 1 tab by mouth twice daily 2 TRIMETHOPRIM-SULFAMETHOXAZOLE 48189798023 No Longer Active Kalpesh Dong MD Active LORTAB 5 5-500 MG TABS 1/2 to 1 tablet by mouth go ry 4 hours as needed for pain HYDROCODONE-ACETAMINOPHEN 15259055704 No Longer Active Kalpesh Dong MD Active GENERESS FE 0.8-25 MG-MCG CHEW Take one by mouth daily NORETHIN-ETH ESTRADIOL-FE 16729028467 No Longer Active Kalpesh Dong MD Active HYDROCODONE-ACETAMINOPHEN 7.5-500 MG TABS 1-2 every 4 hours as needed HYDROCODONE-ACETAMINOPHEN 35544856282 No Longer Activ e Kalpesh Dong MD Active FERROUS SULFATE 325 (65 FE) MG TABS 1 tablet by mouth twice yung y FERROUS SULFATE 47626297833 No Longer Active Kalpesh Dong MD Active IBUPROFEN 600 MG TAB 1 po q6-8hr PRN IBUPROFEN 19959558709 No Longer Active Kalpesh Dong MD Active SPIRONOLACTONE 25 MG TAB 1 tablet by mouth daily 01/22 SPIRONOLACTONE 53493884736 No Longer Active Kalpesh Dong MD Acti ve HYDROCODONE-ACETAMINOPHEN 7.5-325 MG TABS 1 po QID PRN Pain 2011 HYDROCODONE-ACETAMINOPHEN 75276144788 No Longer Active Kalpesh Dong MD Active CLINDAMYCIN HCL 300 MG CAPS 1 po q6hr x 7 days CLINDAMYCIN HCL 35961732566 No Longer Active Edilberto Marino DO Active PREDNISONE 20 MG TAB 2 tabs daily for 4 days, 1 t ab daily for 4 days, 1/2 tab daily for 4 days PREDNISONE 19942064914 No Longer Active Edilberto Marino DO Active PERCOCET 5-325 MG TABS 1 tablet by mouth every 6 hours as ne eded for pain OXYCODONE-ACETAMINOPHEN 60248927627 No Longer Active Abdirahman Rios MD Active VITAMINS TABS Take one by mouth daily MV & MIN W/FE-FA TABS 46396462914 No Longer Active Abdirahman Rios MD Active LUIS 3-0.02 MG TABS 1 tablet by mouth daily as directed DROSPIRENONE-ETHINYL ESTRADIOL 78177691223 No Longer Active Abdirahman Rios MD Active LORATADINE 10 MG TABS 1 tablet by mouth daily L ORATADINE 04058801990 No Longer Active Kalpesh Dong MD Active HYDROCODONE-ACETAMINOPHEN 5-325 MG TABS 1 po q 6hr PRN Pain 2010 HYDROCODONE-ACETAMINOPHEN 26333395131 No Longer Active Edilberto Marino DO Active BACTRIM DS 800-160 MG TAB 1 tab by mouth twice daily 2 TRIMETHOPRIM-SULFAMETHOXAZOLE 32852823252 No Longer Active Abdirahman Rios MD Active 28-0.8 MG TABS Take one by mouth daily 09/20 VIT-FE FUMARATE-FA 22908361283 No Longer Active Abdirahman Rios MD Active CIPRO 500 MG TAB 1 tablet by mouth twice daily CIPROFLOXACIN HCL 03956392247 No Longer Active Abdirahman Rios MD Active BENADRYL 25 MG CAP 1 po q8hr PRN Congestion DIPHENHYDRAMINE HCL 21933416708 No Longer Active Abdirahman Rios MD Active ZOLOFT 50 MG TAB 1 po qd SERTRALINE HCL 919880 97798 No Longer Active Abdirahman Rios MD Active AMOXICILLIN 875 MG TABS 1 tab by mouth twice daily 201 08/09/13 AMOXICILLIN 79283429278 No Longer Active Abdirahman Rios MD Activ e AMOXICILLIN 875 MG TABS 1 tab by mouth twice daily 201 07/19/27 AMOXICILLIN 91908869982 No Longer Active Abdirahman Rios MD Activ e BACTRIM DS 800-160 MG TAB 2 tab by mouth twice daily 2 TRIMETHOPRIM-SULFAMETHOXAZOLE 98446545816 No Longer Active Abdirahman Rios MD Active KEFLEX 500 MG CAP 1 po tid x 10 days CEPHALEXIN 24965644498 No Longer Active Abdirahman Rios MD Active AMOXICILLIN 875 MG TABS 1 tab by mouth twice daily 201 07/18/07 AMOXICILLIN 94841687497 No Longer Active Abdirahman Rios MD Activ e BACTRIM DS 800-160 MG TAB 2 tab by mouth twice daily 2 BACTRIM DS 800-160 MG TAB TRIMETHOPRIM-SULFAMETHOXAZOLE Inactive ZOLOFT 50 MG TAB 1 po qd ZOLOFT 50 MG TAB 3129 41 SERTRALINE HCL Inactive BENADRYL 25 MG CAP 1 po q8hr PRN Congestion BENADRYL 25 MG CAP 3205527 DIPHENHYDRAMINE HCL Inactive 28-0.8 MG TABS Take one by mouth daily 09/20 28-0.8 MG TABS VIT-FE FUMARATE-FA Inactive HYDROCODONE-ACETAMINOPHEN 5-325 MG TABS 1 po q 6hr PRN Pain 2010 HYDROCODONE-ACETAMINOPHEN 5-325 MG TABS 238674 HYDROCODONE-ACETAMINOPHEN Inactive LORATADINE 10 MG TABS 1 tablet by mouth daily LORATADINE 10 MG TABS 553629 LORATADINE Inactive LUIS 3-0.02 MG TABS 1 tablet by mouth daily as directed LUIS 3-0.02 MG TABS DROSPIRENONE-ETHINYL ESTRADIOL Inactive VITAMINS TABS Take one by mouth daily VITAMINS TABS MV & MIN W/FE-FA TABS Inactive PERCOCET 5-325 MG TABS 1 tablet by mouth every 6 hours as ne eded for pain PERCOCET 5-325 MG TABS 4417313 OXYCODONE-ACETAMIN OPHEN Inactive PREDNISONE 20 MG TAB 2 tabs daily for 4 days, 1 t ab daily for 4 days, 1/2 tab daily for 4 days PREDNISONE 20 MG TAB 053173 PREDNISON E Inactive CLINDAMYCIN HCL 300 MG CAPS 1 po q6hr x 7 days CLINDAMYCIN HCL 300 MG CAPS 834835 CLINDAMYCIN HCL Inactive HYDROCODONE-ACETAMINOPHEN 7.5-325 MG TABS 1 po QID PRN Pain 2011 HYDROCODONE-ACETAMINOPHEN 7.5-325 MG TABS 046980 HYDROCODONE-ACETAMINOPHEN Inactive SPIRONOLACTONE 25 MG TAB 1 tablet by mouth daily 01/22 SPIRONOLACTONE 25 MG TAB 552803 SPIRONOLACTONE Inactive IBUPROFEN 600 MG TAB 1 po q6-8hr PRN IBUPROFEN 600 MG TAB 480720 IBUPROFEN Inactive FERROUS SULFATE 325 (65 FE) MG TABS 1 tablet by mouth twice yung y FERROUS SULFATE 325 (65 FE) MG TABS 893285 FERROUS SULF ATE Inactive HYDROCODONE-ACETAMINOPHEN 7.5-500 MG [...] PRN Pain 2011 HYDROCODONE-ACETAMINOPHEN 5-325 MG TABS 286248 HYDROCODONE-ACETAMINOPHEN Inactive DOXYCYCLINE HYCLATE 100 MG CAPS Take one (1) tablet by mouth twice a day DOXYCYCLINE HYCLATE 100 MG CAPS 034381 DOXYCYCLINE HYCLATE Inactive PENICILLIN V POTASSIUM 500 MG TAB 1 four times a day 2 PENICILLIN V POTASSIUM 500 MG TAB 774286 PENICILLIN V POTASSIUM [place] ct[facility] PRISTIQ 50 MG [id number] 1 po qd PRISTIQ 50 MG [id number] DESVENLAFAXINE SUCCINATE Inactive TYLENOL/CODEINE #3 300-30 MG TAB 1-2 po q6hr PRN Pain TYLENOL/CODEINE #3 300-30 MG TAB 543076 ACETAMINOPHEN-CODEINE Inact krishna CEPHALEXIN 500 MG TABS Take one by mouth four times daily, morning, noon, early evening and bedtime. CEPHALEXIN 500 MG TABS 447408 CEPHALEXIN Inactive LORTAB 5 5-500 MG TABS 1/2 to 1 tablet by mouth go ry 6 hours as needed for pain LORTAB 5 5-500 MG TABS HYDROCODONE-A CETAMINOPHEN Inactive AMITRIPTYLINE HCL 25 MG TAB 1 tab by mouth daily 60 minutes before bedtime AMITRIPTYLINE HCL 25 MG TAB 056045 AMITRIPTYLINE HCL Inactive AMOXICILLIN 500 MG TABS 2 tabs PO bid x 10 d 7 AMOXICILLIN 500 MG TABS 270389 AMOXICILLIN Inactive IMPLANON 68 MG IMPL IMPLANTED IN LEFT ARM IMPLANON 68 MG IMPL ETONOGESTREL Inactive HYDROCODONE-ACETAMINOPHEN 5-325 MG TABS 1 PO tid PRN pain 5 HYDROCODONE-ACETAMINOPHEN 5-325 MG TABS 496442 HYDROCODONE-ACETAMIN OPHEN Inactive BACTRIM DS 800-160 MG TAB 1 tab by mouth twice daily 2 BACTRIM DS 800-160 MG TAB TRIMETHOPRIM-SULFAMETHOXAZOLE Inac tive CEPHALEXIN 500 MG CAPS 1 PO bid x 7 days CEPHALEXIN 500 MG CAPS 412456 CEPHALEXIN Inactive HYDROCODONE-ACETAMINOPHEN 5-325 MG TABS 1 tab by mouth every 6 hours as needed HYDROCODONE-ACETAMINOPHEN 5-325 MG TABS 625146 HYDROCODONE-ACETAMINOPHEN Inactive PROMETHAZINE-CODEINE 6.25-10 MG/5ML SYRP 1 tsp every 6 hrs prn c ough PROMETHAZINE-CODEINE 6.25-10 MG/5ML SYRP 392710 PROMETH AZINE-CODEINE Inactive IBUPROFEN 800 MG TAB 1 pill three times daily as needed for pain IBUPROFEN 800 MG TAB 513671 IBUPROFEN Inactive KEFLEX 500 MG CAP 1 tab po tid KEFLEX 500 MG CAP 175463 CEPHALEXIN Inactive HYDROCODONE-ACETAMINOPHEN 7.5-325 MG TABS 1 four times a day as needed for pain HYDROCODONE-ACETAMINOPHEN 7.5-325 MG TABS 220641 HYDROCODONE-ACETAMINOPHEN Inactive BACTRIM DS 800-160 MG TABS by mouth twice a day 11/05 BACTRIM DS 800-160 MG TABS SULFAMETHOXAZOLE-TRIMETHOPRIM Inactive IBUPROFEN 800 MG TABS 1 tid prn IBUPROFEN 800 MG TABS 607146 IBUPROFEN Inactive ENDOCET 10-325 MG TABS 1 q 6 hr prn ENDOC ET 10-325 MG TABS 0782336 OXYCODONE-ACETAMINOPHEN Inactive HYDROCODONE-ACETAMINOPHEN 7.5-325 MG TABS 1 by mouth e very 6 hours as needed for pain HYDROCODONE-ACETAMINOPHEN 7.5-325 MG TABS 865806 HYDROCODONE-ACETAMINOPHEN Inactive PERCOCET 7.5-325 MG TABS 1 PO q 8 hrs PRN pain PERCOCET 7.5-325 MG TABS 5435270 OXYCODONE-ACETAMINOPHEN Inactive LIDODERM 5 % PTCH One patch to painful area IA N. On for 12 hrs, off for 12 hrs. LIDODERM 5 % PTCH 0318090 LIDOCAINE Inactiv e PERCOCET 7.5-325 MG TABS 1 PO tid PRN pain PERCOCET 7.5- 325 MG TABS 6063557 OXYCODONE-ACETAMINOPHEN Inactive MOBIC 15 MG TABS 1 tab daily MOBIC 15 MG TABS 15 2695 MELOXICAM Inactive CYCLOBENZAPRINE HCL 10 MG TABS 1/2 - 1 tab PO tid PRN back p ain, muscle spasm CYCLOBENZAPRINE HCL 10 MG TABS 733121 CYCLOBENZA JOSEPH HCL Inactive LORATADINE 10 MG TABS 1 tablet by mouth daily LORATADINE 10 MG TABS 128104 LORATADINE Inactive HYDROCODONE-ACETAMINOPHEN 10-325 MG TABS 1 by mouth ev chaka 8 hours as needed for pain HYDROCODONE-ACETAMINOPHEN 10-325 MG TABS 408065 HYDROCODONE-ACETAMINOPHEN Inactive LC-5 LIDOCAINE 5 % CREA apply 1 time daily to affected area 2013 LC-5 LIDOCAINE 5 % CREA LIDOCAINE (ANORECTAL) In active PERCOCET 5-325 MG TAB 1 every 6 hours as needed PERCOCET 5-325 MG TAB 4564591 OXYCODONE-ACETAMINOPHEN Inactive KEFLEX 500 MG CAP 1 po qid KEFLEX 500 MG CAP 30 9114 CEPHALEXIN Inactive PROAIR HFA 108 (90 BASE) MCG/ACT AERS 2 puff q 4-6 hrs PRN 01/24 PROAIR HFA 108 (90 BASE) MCG/ACT AERS ALBUTEROL SULFATE Inactive AMOXICILLIN 875 MG TABS 1 tab by mouth twice daily 201 07/18/07 AMOXICILLIN 875 MG TABS 102595 AMOXICILLIN Inactive KEFLEX 500 MG CAP 1 po tid x 10 days KEFLEX 500 MG CAP 720123 CEPHALEXIN Inactive AMOXICILLIN 875 MG TABS 1 tab by mouth twice daily 201 07/19/27 AMOXICILLIN 875 MG TABS 263019 AMOXICILLIN Inactive AMOXICILLIN 875 MG TABS 1 tab by mouth twice daily 201 08/09/13 AMOXICILLIN 875 MG TABS 033540 AMOXICILLIN Inactive CIPRO 500 MG TAB 1 tablet by mouth twice daily CIPRO 500 MG TAB 621702 CIPROFLOXACIN HCL Inactive BACTRIM DS 800-160 MG TAB 1 tab by mouth twice daily 2 BACTRIM DS 800-160 MG TAB TRIMETHOPRIM-SULFAMETHOXAZOLE Inac tive LEVAQUIN 500 MG TABS 1 PO q day x 7 days LEVAQUIN 500 MG TABS 927225 LEVOFLOXACIN Inactive CLINDAMYCIN HCL 300 MG CAPS 1 po QID x 7 days CLINDAMYCIN HCL 300 MG CAPS 676780 CLINDAMYCIN HCL Inactive AUGMENTIN 875-125 MG TAB 1 tab by mouth twice daily with food 22/05/07 AUGMENTIN 875-125 MG TAB 163563 AMOXICILLIN-POT [place] Inactive DIFLUCAN 150 MG TAB 1 qODay x 2 doses DIFLUCAN 150 MG TAB 790557 FLUCONAZOLE Inactive PREDNISONE 20 MG TAB 2 tabs daily for 3 days, 1 t ab daily for 3 days, 1/2 tab daily for 2 days PREDNISONE 20 MG TAB 319976 PREDNISON E Inactive Advance Directives Directive Description Start Date PERMISSION TO SHARE Immunizations Vaccine Administration Date Value Standard Alf cription Seasonal influenza vaccine, injectable, containing preservative, for > 3 years old (Afluria, FluLaval, Fluzone, Fluvirin, Fluarix, Agriflu(>= 18 yo)) Fluzone (>3 yrs.) [[id number]] Influenza, seasonal, inject able Seasonal influenza vaccine, injectable, preservative free, for > 3 years old (Afluria, FluLaval, Fluzone, Fluvirin, Fluarix, Agriflu(>= 18 yo)) Fluzone preservative free (>3 yrs.) [[id number]] Influenza, seasonal, injectable, preservative free Seasonal influenza vaccine, injectable, containing preservative, for > 3 years old (Afluria, FluLaval, Fluzone, Fluvirin, Fluarix, Agriflu(>= 18 yo)) Fluzone (>3 yrs.) [[id number]] Influenza, seasonal, inject able Seasonal influenza vaccine, injectable, containing preservative, for > 3 years old (Afluria, FluLaval, Fluzone, Fluvirin, Fluarix, Agriflu(>= 18 yo)) Fluzone (>3 yrs.) [[id number]] Influenza, seasonal, inject able dT (Diphtheria and [...] negative Encounters Code Encounter Date Provider Facility CPT-55391 Level 2 Est. Patient 07:49:32 CDT Kalpesh goins MD [facility] CPT-21694 Level 3 New Patient 15:47:11 BOOK RETAILER Bj huber MD [facility] CPT-20647 Level 4 Est. Patient 14:37:38 BOOK RETAILER Abdirahman Rios MD [facility] CPT-90797 Level 2 Est. Patient 13:32:17 BOOK RETAILER Kalpesh goins MD [facility] CPT-30414 Level 3 Est. Patient 17:32:57 BOOK RETAILER Edilberto tiwari [facility] CPT-44729 Level 3 Est. Patient 17:22:33 BOOK RETAILER Edilberto tiwari [facility] CPT-76265 Level 2 Est. Patient 16:57:09 BOOK RETAILER Kalpesh goins MD [facility]-11123 Level 3 Est. Patient 14:03:08 BOOK RETAILER Abdirahman Rios MD [facility] CPT-10010 Level 3 Est. Patient 18:12:34 CDT Shola MCGILL [facility] CPT-35920 Level 3 Est. Patient 19:34:46 CDT Shola MCGILL [facility] CPT-89618 Level 3 Est. Patient 14:19:37 CDT Abdirahman Rios MD [facility] CPT-87277 Level 3 Est. Patient 14:11:58 CDT Kalpesh goins MD [facility]-30648 Level 3 Est. Patient 16:50:00 CDT [facility] Level 3 Est. Patient 17:11:32 BOOK RETAILER Brandie bates MD PhD [facility]-53469 Level 3 Est. Patient 16:31:47 BOOK RETAILER Shola Wright [facility] CPT-49546 Level 3 Est. Patient 17:51:10 BOOK RETAILER Abhinav Galvan MD [facility] CPT-42158 Level 4 Est. Patient 12:54:56 BOOK RETAILER Kalpesh goins MD [facility] CPT-77362 Level 4 Est. Patient 12:53:56 BOOK RETAILER Kalpesh goins MD [facility]-51222 Level 3 Est. Patient 17:56:58 CDT Shola MCGILL [facility] CPT-93948 Level 3 Est. Patient 14:26:20 CDT Janak butcher [facility] CPT-55852 Level 3 Est. Patient 09:38:41 CDT Shola Wright [facility] CPT-77949 Level 3 Est. Patient 14:45:26 CDT Edilberto tiwari DO [facility] CPT-07353 Level 3 Est. Patient 10:51:33 CDT [facility]14 Level 3 Est. Patient 11:57:55 BOOK RETAILER Shola MCGILL [facility] CPT-10447 Level 3 Est. Patient 09:53:33 BOOK RETAILER Edilberto tiwari [facility] CPT-78712 Level 3 Est. Patient 14:42:54 BOOK RETAILER Abhinav Galvan MD [facility] CPT-66302 Level 3 Est. Patient 15:10:02 CDT Janak butcher [facility] CPT-88944 Level 3 Est. Patient 15:20:20 CDT Theo dennis MD [facility] CPT-23819 Level 2 Est. Patient 14:08:57 CDT Kalpesh goins MD [facility] CPT-74647 Level 3 Est. Patient 13:56:19 CDT Abdirahman Rios MD [facility] CPT-23277 Level 3 Est. Patient 13:59:37 CDT Abdirahman Rios MD [facility] CPT-92756 Level 2 Est. Patient 14:44:59 CDT Kalpesh goins MD [facility] CPT-76790 Level 3 Est. Patient 06:06:23 CDT Edilberto tiwari [facility] CPT-65426 Level 3 Est. Patient 15:23:54 CDT Abdirahman Rios MD [facility] CPT-79062 Level 3 Est. Patient 15:43:49 CDT Abdirahman Rios MD [facility] CPT-61269 Level 3 Est. Patient 12:46:47 BOOK RETAILER Abdirahman Rios MD [facility] CPT-32802 Level 3 Est. Patient 08:13:35 BOOK RETAILER Abdirahman Rios MD [facility] CPT-99493 Level 2 Est. Patient 09:36:42 BOOK RETAILER Abdirahman Rios MD [facility] CPT-14598 Level 3 Est. Patient 10:56:43 CDT Abdirahman Rios MD [facility] CPT-64818 Level 3 Est. Patient 18:24:52 CDT Abdirahman Rios MD [facility] CPT-53356 Level 3 Est. Patient 13:27:22 CDT Abdirahman Rios MD [facility] Procedures Code Procedure Name Date Entry Date Standard Desc ription CPT-84404 Postop F/U Visit 11:29:00 BOOK RETAILER CPT-J0696 Rocephin 1000 mg (Ceftriaxone) 17:22:33 BOOK RETAILER CPT-70261 Postop F/U Visit 18:41:07 BOOK RETAILER CPT-97141 Postop F/U Visit 08:19:08 BOOK RETAILER CPT-72684 Immunization Single Admin 16:41:53 CDT 2013 CPT-80561 Fluzone Quadrivalent Intramuscular Suspe nsion 0.5 ML 16:41:53 CDT CPT-OV Office Visit 16:39:18 CDT CPT-OV Office Visit 16:16:36 CDT CPT-OV Office Visit 15:34:48 CDT CPT-37945 Postop F/U Visit 14:50:12 CDT CPT-25637 Postop F/U Visit 14:41:10 CDT CPT-92260 Venipuncture Draw Fee 11:38:04 BOOK RETAILER CPT-97881 Postop F/U Visit 19:02:59 BOOK RETAILER CPT-82064 Postop F/U Visit 12:04:54 BOOK RETAILER CPT-58679 Administration single or combination vac cine inc oral 15:56:43 CDT CPT-83519 Influenza split virus > age 3 15:56:43 CDT CPT-19489 Hand comp min 3V 14:25:19 CDT CPT-56519 Postop F/U Visit 21:40:51 CDT CPT-07828 Postop F/U Visit 10:58:43 CDT CPT-02673 Administration single or combination vac cine inc oral 12:33:54 BOOK RETAILER CPT-24199 Influenza Preservative Free split virus >age 3 12:33:54 BOOK RETAILER CPT-52927 Administration single or combination vac cine inc oral 09:30:51 CDT CPT-88533 Influenza split virus > age 3 09:30:51 CDT CPT-41912 Postop F/U Visit 15:14:53 CDT CPT-79917 Postop F/U Visit 13:50:14 CDT CPT-26090 Postop F/U Visit 13:34:52 CDT CPT-OV Office Visit 16:55:03 CDT CPT-49920 [place] of cervix w bx ECC 13:32:50 CDT 10/19 CPT-J1885 Toradol 60 mg (Ketorolac) 15:31:59 CDT 2011 CPT-J1885 Toradol 60 mg (Ketorolac) 15:23:54 CDT 2011 CPT-76799 Visit 11:34:37 BOOK RETAILER CPT-24063 Visit 10:52:39 BOOK RETAILER CPT-44850 Visit 10:12:02 BOOK RETAILER CPT-91458 Visit 11:22:43 BOOK RETAILER CPT-64133 Visit 11:24:12 BOOK RETAILER CPT-95993 Visit 10:47:05 BOOK RETAILER CPT-OV Office Visit 10:26:16 BOOK RETAILER CPT-OV Office Visit 15:34:31 BOOK RETAILER CPT-11607 Visit 10:42:08 BOOK RETAILER CPT-51527 Visit 10:52:45 BOOK RETAILER CPT-000 Give Appropriate Flu Vaccine 16:56:41 CDT 2 CPT-82183 Administration single or combination vac cine inc oral 10:33:21 CDT CPT-41008 Influenza split virus > age 3 10:33:21 CDT CPT-25355 Visit 13:23:09 CDT CPT-98016 Visit 18:24:52 CDT CPT-91007 Sono OB comp > 14 weeks 12:07:49 CDT 04/07
--- OUTSIDE RECORDS SUMMARY | 2020-01-18 16:31 | XMS REPORT | Clinical Summary ---
Author Author Admin, Jeri Rashid Organization [facility] Address Unknown Phone Unavailable Allergies, Adverse [...] NEC Abscess, perirectal 566 Active Hira roman SAP SENIOR DEVELOPER Abscess of anal and rectal regions , [...] TABS 1 po q6hr PRN pain HYDROCODONE-ACETAMINOPHEN 48718864433 Active Abdirahman Rios MD Active PERCOCET 10-325 MG ORAL TABS 1 every 4 hours as needed OXYCODONE-ACETAMINOPHEN 73855786277 No Longer Active Abdirahman Rios MD Active [id number] 50-325-40 MG ORAL CAPS 1-2 po TID OR N Headache [id number] 68689483538 Active Abdirahman Rios MD Active AUGMENTIN 875-125 MG TAB 1 tab by mouth twice daily with food 20 21/10/13 AMOXICILLIN-POT CLAVULANATE 66470649473 No Longer Active Ursula Moser APRN Active PROAIR HFA 108 (90 BASE) MCG/ACT AERS 2 puff q 4-6 hrs PRN 01/24 ALBUTEROL SULFATE 44670053682 No Longer Active Kalpesh Dong MD Active ALPRAZOLAM 0.5 MG TABS 1 po BID PRN Anxiety ALPRA ZOLAM 74105703545 Active Abdirahman Rios MD Active EMLA 2.5-2.5 % EXT CREA apply to skin lesion q 6 hours, prn LIDOCAINE-PRILOCAINE 99729799915 Active Hira Moser APRN Active CYCLOBENZAPRINE HCL 10 MG TABS 1 tablet by mouth three times daily as needed for muscle spasm/pain CYCLOBENZAPRINE HCL 62167023067 Active Abdirahman Rios MD Active PREDNISONE 20 MG TAB 2 tabs daily for 3 days, 1 t ab daily for 3 days, 1/2 tab daily for 2 days PREDNISONE 02368809334 No Longer Active Abdirahman Rios MD Active KEFLEX 500 MG CAP 1 po qid CEPHALEXIN 526114527 20 No Longer Active Kalpesh Dong MD Active PERCOCET 5-325 MG TAB 1 every 6 hours as needed OXYCODONE-ACETAMINOPHEN 15422545153 No Longer Active Shola MCGILL Active LC-5 LIDOCAINE 5 % CREA apply 1 time daily to affected area 2013 LIDOCAINE (ANORECTAL) 21911393887 No Longer Active Hira muniz SAP SENIOR DEVELOPER Active HYDROCODONE-ACETAMINOPHEN 10-325 MG TABS 1 by mouth ev chaka 8 hours as needed for pain HYDROCODONE-ACETAMINOPHEN 76549622692 No Longer Active Jillina Frazell SAP SENIOR DEVELOPER Active LORATADINE 10 MG TABS 1 tablet by mouth daily L ORATADINE 99523480816 No Longer Active Jillina Frazell SAP SENIOR DEVELOPER Active DIFLUCAN 150 MG TAB 1 qODay x 2 doses FLUCONAZO LE 56447726728 No Longer Active Jillina Frazell SAP SENIOR DEVELOPER Active CYCLOBENZAPRINE HCL 10 MG TABS 1/2 - 1 tab PO tid PRN back p ain, muscle spasm CYCLOBENZAPRINE HCL 80916513641 No Longer Active Karen siri Karmenl SAP SENIOR DEVELOPER Active AUGMENTIN 875-125 MG TAB 1 tab by mouth twice daily with food 20 22/05/07 AMOXICILLIN-POT CLAVULANATE 10157464774 No Longer Active Loida Rios MD Active MOBIC 15 MG TABS 1 tab daily MELOXICAM 342878623 14 No Longer Active Abdirahman Rios MD Active PERCOCET 7.5-325 MG TABS 1 PO tid PRN pain OXYCODONE-ACETAMINOPHEN 51940962452 No Longer Active Abdirahman Rios MD Active LIDODERM 5 % PTCH One patch to painful area OR N. On for 12 hrs, off for 12 hrs. LIDOCAINE 69154032080 No Longer Active Abdirahman Rios MD Active PERCOCET 7.5-325 MG TABS 1 PO q 8 hrs PRN pain OXYCODONE-ACETAMINOPHEN 50254180523 No Longer Active Shola MCGILL Active HYDROCODONE-ACETAMINOPHEN 7.5-325 MG TABS 1 by mouth e very 6 hours as needed for pain HYDROCODONE-ACETAMINOPHEN 42826980007 No Longer Active Good Julian MD Active CLINDAMYCIN HCL 300 MG CAPS 1 po QID x 7 days CLINDAMYCIN HCL 93542885845 No Longer Active Abdirahman Rios MD Activ e BACTRIM DS 800-160 MG TABS 1 po BID x 7 days 5 SULFAMETHOXAZOLE-TRIMETHOPRIM 93777618712 No Longer Active Abdirahman Rios MD Active ENDOCET 10-325 MG TABS 1 q 6 hr prn OXYCODONE-ACETAMINOPHEN 82813264908 No Longer Active Abdirahman Rios MD Active IBUPROFEN 800 MG TABS 1 tid prn IBUPROFEN 101076 67629 No Longer Active Abdirahman Rios MD Active BACTRIM DS 800-160 MG TABS by mouth twice a day 11/05 SULFAMETHOXAZOLE-TRIMETHOPRIM 63819112173 No Longer Active Good Julian MD Active HYDROCODONE-ACETAMINOPHEN 7.5-325 MG TABS 1 four times a day as needed for pain HYDROCODONE-ACETAMINOPHEN 76473887294 No Longer Activ e Good Julian MD Active KEFLEX 500 MG CAP 1 tab po tid CEPHALEXIN 258410 41974 No Longer Active Hira Moser APRN Active IBUPROFEN 800 MG TAB 1 pill three times daily as needed for pain IBUPROFEN 69269119274 No Longer Active Kalpesh Dong MD Active PROMETHAZINE-CODEINE 6.25-10 MG/5ML SYRP 1 tsp every 6 hrs prn c ough PROMETHAZINE-CODEINE 02923559429 No Longer Active Kalpesh Carr Active HYDROCODONE-ACETAMINOPHEN 5-325 MG TABS 1 tab by mouth every 6 hours as needed HYDROCODONE-ACETAMINOPHEN 99970303666 No Longer Activ e Shola MCGILL Active CEPHALEXIN 500 MG CAPS 1 PO bid x 7 days CEPHAL EXIN 21919605514 No Longer Active Shola MCGILL Active BACTRIM DS 800-160 MG TAB 1 tab by mouth twice daily 2 TRIMETHOPRIM-SULFAMETHOXAZOLE 86612535407 No Longer Active Kalpesh Dong MD Active HYDROCODONE-ACETAMINOPHEN 5-325 MG TABS 1 PO tid PRN pain 5 HYDROCODONE-ACETAMINOPHEN 35424793020 No Longer Active Abhinav Galvan MD Active IMPLANON 68 MG IMPL IMPLANTED IN LEFT ARM ETONO GESTREL 40049706635 No Longer Active Hira Moser APRN Active AMOXICILLIN 500 MG TABS 2 tabs PO bid x 10 d AM OXICILLIN 09909372854 No Longer Active Kalpesh Dong MD Active LEVAQUIN 500 MG TABS 1 PO q day x 7 days LEVOFL OXACIN 21556592199 No Longer Active Shola MCGILL Active AMITRIPTYLINE HCL 25 MG TAB 1 tab by mouth daily 60 minutes before bedtime AMITRIPTYLINE HCL 96436326332 No Longer Active Shola MCGILL Active LORTAB 5 5-500 MG TABS 1/2 to 1 tablet by mouth go ry 6 hours as needed for pain HYDROCODONE-ACETAMINOPHEN 79362016261 No Longer Active Shola MCGILL Active CEPHALEXIN 500 MG TABS Take one by mouth four times daily, morning, noon, early evening and bedtime. CEPHALEXIN 80661425817 No Long er Active Hira Moser APRN Active TYLENOL/CODEINE #3 300-30 MG TAB 1-2 po q6hr PRN Pain ACETAMINOPHEN-CODEINE 31679531520 No Longer Active Edilberto Marino DO Active PRISTIQ 50 MG [id number] 1 po qd DESVENLAFAXI NE SUCCINATE 75705081673 No Longer Active Edilberto Marino DO Active PENICILLIN V POTASSIUM 500 MG TAB 1 four times a day 2 PENICILLIN V POTASSIUM 57548258802 No Longer Active Edilberto Marino DO Active DOXYCYCLINE HYCLATE 100 MG CAPS Take one (1) tablet by mouth twice a day DOXYCYCLINE HYCLATE 52957738295 No Longer Active Ronnie Galvan MD Active HYDROCODONE-ACETAMINOPHEN 5-325 MG TABS 1 po q 6hr PRN Pain 2011 HYDROCODONE-ACETAMINOPHEN 22832643267 No Longer Active Patri joan Perez RN Active BACTRIM DS 800-160 MG TAB 1 tab by mouth twice daily 2 TRIMETHOPRIM-SULFAMETHOXAZOLE 60461233077 No Longer Active Kalpesh Dong MD Active LORTAB 5 5-500 MG TABS 1/2 to 1 tablet by mouth go ry 4 hours as needed for pain HYDROCODONE-ACETAMINOPHEN 13721421202 No Longer Active Kalpesh Dong MD Active GENERESS FE 0.8-25 MG-MCG CHEW Take one by mouth daily NORETHIN-ETH ESTRADIOL-FE 67032715673 No Longer Active Kalpesh Dong MD Active HYDROCODONE-ACETAMINOPHEN 7.5-500 MG TABS 1-2 every 4 hours as needed HYDROCODONE-ACETAMINOPHEN 46824106870 No Longer Activ e Kalpesh Dong MD Active FERROUS SULFATE 325 (65 FE) MG TABS 1 tablet by mouth twice yung y FERROUS SULFATE 99006579733 No Longer Active Kalpesh Dong MD Active IBUPROFEN 600 MG TAB 1 po q6-8hr PRN IBUPROFEN 36126334976 No Longer Active Kalpesh Dong MD Active SPIRONOLACTONE 25 MG TAB 1 tablet by mouth daily 01/22 SPIRONOLACTONE 60625640948 No Longer Active Kalpesh Dong MD Acti ve HYDROCODONE-ACETAMINOPHEN 7.5-325 MG TABS 1 po QID PRN Pain 2011 HYDROCODONE-ACETAMINOPHEN 97357748748 No Longer Active Kalpesh Dong MD Active CLINDAMYCIN HCL 300 MG CAPS 1 po q6hr x 7 days CLINDAMYCIN HCL 32395841057 No Longer Active Edilberto Marino DO Active PREDNISONE 20 MG TAB 2 tabs daily for 4 days, 1 t ab daily for 4 days, 1/2 tab daily for 4 days PREDNISONE 24281222032 No Longer Active Edilberto Marino DO Active PERCOCET 5-325 MG TABS 1 tablet by mouth every 6 hours as ne eded for pain OXYCODONE-ACETAMINOPHEN 16734574632 No Longer Active Abdirahman Rios MD Active VITAMINS TABS Take one by mouth daily MV & MIN W/FE-FA TABS 57714375717 No Longer Active Abdirahman Rios MD Active LUIS 3-0.02 MG TABS 1 tablet by mouth daily as directed DROSPIRENONE-ETHINYL ESTRADIOL 14808680697 No Longer Active Abdirahman Rios MD Active LORATADINE 10 MG TABS 1 tablet by mouth daily L ORATADINE 96113294464 No Longer Active Kalpesh Dong MD Active HYDROCODONE-ACETAMINOPHEN 5-325 MG TABS 1 po q 6hr PRN Pain 2010 HYDROCODONE-ACETAMINOPHEN 20918962834 No Longer Active Edilberto Marino DO Active BACTRIM DS 800-160 MG TAB 1 tab by mouth twice daily 2 TRIMETHOPRIM-SULFAMETHOXAZOLE 37269472338 No Longer Active Abdirahman Rios MD Active 28-0.8 MG TABS Take one by mouth daily 09/20 VIT-FE FUMARATE-FA 66219416718 No Longer Active Abdirahman Rios MD Active CIPRO 500 MG TAB 1 tablet by mouth twice daily CIPROFLOXACIN HCL 31063749250 No Longer Active Abdirahman Rios MD Active BENADRYL 25 MG CAP 1 po q8hr PRN Congestion DIPHENHYDRAMINE HCL 77513537125 No Longer Active Abdirahman Rios MD Active ZOLOFT 50 MG TAB 1 po qd SERTRALINE HCL 074783 60422 No Longer Active Abdirahman Rios MD Active AMOXICILLIN 875 MG TABS 1 tab by mouth twice daily 201 08/09/13 AMOXICILLIN 41046957603 No Longer Active Abdirahman Rios MD Activ e AMOXICILLIN 875 MG TABS 1 tab by mouth twice daily 201 07/19/27 AMOXICILLIN 58142032360 No Longer Active Abdirahman Rios MD Activ e BACTRIM DS 800-160 MG TAB 2 tab by mouth twice daily 2 TRIMETHOPRIM-SULFAMETHOXAZOLE 42244965879 No Longer Active Abdirahman Rios MD Active KEFLEX 500 MG CAP 1 po tid x 10 days CEPHALEXIN 13306001793 No Longer Active Abdirahman Rios MD Active AMOXICILLIN 875 MG TABS 1 tab by mouth twice daily 201 07/18/07 AMOXICILLIN 96935016384 No Longer Active Abdirahman Rios MD Activ e BACTRIM DS 800-160 MG TAB 2 tab by mouth twice daily 2 BACTRIM DS 800-160 MG TAB TRIMETHOPRIM-SULFAMETHOXAZOLE Inactive ZOLOFT 50 MG TAB 1 po qd ZOLOFT 50 MG TAB 3129 41 SERTRALINE HCL Inactive BENADRYL 25 MG CAP 1 po q8hr PRN Congestion BENADRYL 25 MG CAP 3099265 DIPHENHYDRAMINE HCL Inactive 28-0.8 MG TABS Take one by mouth daily 09/20 28-0.8 MG TABS VIT-FE FUMARATE-FA Inactive HYDROCODONE-ACETAMINOPHEN 5-325 MG TABS 1 po q 6hr PRN Pain 2010 HYDROCODONE-ACETAMINOPHEN 5-325 MG TABS 846720 HYDROCODONE-ACETAMINOPHEN Inactive LORATADINE 10 MG TABS 1 tablet by mouth daily LORATADINE 10 MG TABS 893911 LORATADINE Inactive LUIS 3-0.02 MG TABS 1 tablet by mouth daily as directed LUIS 3-0.02 MG TABS DROSPIRENONE-ETHINYL ESTRADIOL Inactive VITAMINS TABS Take one by mouth daily VITAMINS TABS MV & MIN W/FE-FA TABS Inactive PERCOCET 5-325 MG TABS 1 tablet by mouth every 6 hours as ne eded for pain PERCOCET 5-325 MG TABS 4783385 OXYCODONE-ACETAMIN OPHEN Inactive PREDNISONE 20 MG TAB 2 tabs daily for 4 days, 1 t ab daily for 4 days, 1/2 tab daily for 4 days PREDNISONE 20 MG TAB 567465 PREDNISON E Inactive CLINDAMYCIN HCL 300 MG CAPS 1 po q6hr x 7 days CLINDAMYCIN HCL 300 MG CAPS 964605 CLINDAMYCIN HCL Inactive HYDROCODONE-ACETAMINOPHEN 7.5-325 MG TABS 1 po QID PRN Pain 2011 HYDROCODONE-ACETAMINOPHEN 7.5-325 MG TABS 883137 HYDROCODONE-ACETAMINOPHEN Inactive SPIRONOLACTONE 25 MG TAB 1 tablet by mouth daily 01/22 SPIRONOLACTONE 25 MG TAB 912639 SPIRONOLACTONE Inactive IBUPROFEN 600 MG TAB 1 po q6-8hr PRN IBUPROFEN 600 MG TAB 050939 IBUPROFEN Inactive FERROUS SULFATE 325 (65 FE) MG TABS 1 tablet by mouth twice yung y FERROUS SULFATE 325 (65 FE) MG TABS 562680 FERROUS SULF ATE Inactive HYDROCODONE-ACETAMINOPHEN 7.5-500 MG [...] PRN Pain 2011 HYDROCODONE-ACETAMINOPHEN 5-325 MG TABS 649058 HYDROCODONE-ACETAMINOPHEN Inactive DOXYCYCLINE HYCLATE 100 MG CAPS Take one (1) tablet by mouth twice a day DOXYCYCLINE HYCLATE 100 MG CAPS 660209 DOXYCYCLINE HYCLATE Inactive PENICILLIN V POTASSIUM 500 MG TAB 1 four times a day 2 PENICILLIN V POTASSIUM 500 MG TAB 222288 PENICILLIN V POTASSIUM Siri ctive PRISTIQ 50 MG [id number] 1 po qd PRISTIQ 50 MG [id number] DESVENLAFAXINE SUCCINATE Inactive TYLENOL/CODEINE #3 300-30 MG TAB 1-2 po q6hr PRN Pain TYLENOL/CODEINE #3 300-30 MG TAB 284510 ACETAMINOPHEN-CODEINE Inact krishna CEPHALEXIN 500 MG TABS Take one by mouth four times daily, morning, noon, early evening and bedtime. CEPHALEXIN 500 MG TABS 455186 CEPHALEXIN Inactive LORTAB 5 5-500 MG TABS 1/2 to 1 tablet by mouth go ry 6 hours as needed for pain LORTAB 5 5-500 MG TABS HYDROCODONE-A CETAMINOPHEN Inactive AMITRIPTYLINE HCL 25 MG TAB 1 tab by mouth daily 60 minutes before bedtime AMITRIPTYLINE HCL 25 MG TAB 291453 AMITRIPTYLINE HCL Inactive AMOXICILLIN 500 MG TABS 2 tabs PO bid x 10 d 7 AMOXICILLIN 500 MG TABS 308737 AMOXICILLIN Inactive IMPLANON 68 MG IMPL IMPLANTED IN LEFT ARM IMPLANON 68 MG IMPL ETONOGESTREL Inactive HYDROCODONE-ACETAMINOPHEN 5-325 MG TABS 1 PO tid PRN pain 5 HYDROCODONE-ACETAMINOPHEN 5-325 MG TABS 105368 HYDROCODONE-ACETAMIN OPHEN Inactive BACTRIM DS 800-160 MG TAB 1 tab by mouth twice daily 2 BACTRIM DS 800-160 MG TAB TRIMETHOPRIM-SULFAMETHOXAZOLE Inac tive CEPHALEXIN 500 MG CAPS 1 PO bid x 7 days CEPHALEXIN 500 MG CAPS 769738 CEPHALEXIN Inactive HYDROCODONE-ACETAMINOPHEN 5-325 MG TABS 1 tab by mouth every 6 hours as needed HYDROCODONE-ACETAMINOPHEN 5-325 MG TABS 873121 HYDROCODONE-ACETAMINOPHEN Inactive PROMETHAZINE-CODEINE 6.25-10 MG/5ML SYRP 1 tsp every 6 hrs prn c ough PROMETHAZINE-CODEINE 6.25-10 MG/5ML SYRP 349978 PROMETH AZINE-CODEINE Inactive IBUPROFEN 800 MG TAB 1 pill three times daily as needed for pain IBUPROFEN 800 MG TAB 696640 IBUPROFEN Inactive KEFLEX 500 MG CAP 1 tab po tid KEFLEX 500 MG CAP 648387 CEPHALEXIN Inactive HYDROCODONE-ACETAMINOPHEN 7.5-325 MG TABS 1 four times a day as needed for pain HYDROCODONE-ACETAMINOPHEN 7.5-325 MG TABS 661399 HYDROCODONE-ACETAMINOPHEN Inactive BACTRIM DS 800-160 MG TABS by mouth twice a day 11/05 BACTRIM DS 800-160 MG TABS SULFAMETHOXAZOLE-TRIMETHOPRIM Inactive IBUPROFEN 800 MG TABS 1 tid prn IBUPROFEN 800 MG TABS 940297 IBUPROFEN Inactive ENDOCET 10-325 MG TABS 1 q 6 hr prn ENDOC ET 10-325 MG TABS 7773687 OXYCODONE-ACETAMINOPHEN Inactive HYDROCODONE-ACETAMINOPHEN 7.5-325 MG TABS 1 by mouth e very 6 hours as needed for pain HYDROCODONE-ACETAMINOPHEN 7.5-325 MG TABS 492111 HYDROCODONE-ACETAMINOPHEN Inactive PERCOCET 7.5-325 MG TABS 1 PO q 8 hrs PRN pain PERCOCET 7.5-325 MG TABS 3058618 OXYCODONE-ACETAMINOPHEN Inactive LIDODERM 5 % PTCH One patch to painful area OR N. On for 12 hrs, off for 12 hrs. LIDODERM 5 % PTCH 5918549 LIDOCAINE Inactiv e PERCOCET 7.5-325 MG TABS 1 PO tid PRN pain PERCOCET 7.5- 325 MG TABS 7216117 OXYCODONE-ACETAMINOPHEN Inactive MOBIC 15 MG TABS 1 tab daily MOBIC 15 MG TABS 15 2695 MELOXICAM Inactive CYCLOBENZAPRINE HCL 10 MG TABS 1/2 - 1 tab PO tid PRN back p ain, muscle spasm CYCLOBENZAPRINE HCL 10 MG TABS 888217 CYCLOBENZA JOSEPH HCL Inactive LORATADINE 10 MG TABS 1 tablet by mouth daily LORATADINE 10 MG TABS 795819 LORATADINE Inactive HYDROCODONE-ACETAMINOPHEN 10-325 MG TABS 1 by mouth ev chaka 8 hours as needed for pain HYDROCODONE-ACETAMINOPHEN 10-325 MG TABS 659772 HYDROCODONE-ACETAMINOPHEN Inactive LC-5 LIDOCAINE 5 % CREA apply 1 time daily to affected area 2013 LC-5 LIDOCAINE 5 % CREA LIDOCAINE (ANORECTAL) In active PERCOCET 5-325 MG TAB 1 every 6 hours as needed PERCOCET 5-325 MG TAB 2929910 OXYCODONE-ACETAMINOPHEN Inactive KEFLEX 500 MG CAP 1 po qid KEFLEX 500 MG CAP 30 9114 CEPHALEXIN Inactive PROAIR HFA 108 (90 BASE) MCG/ACT AERS 2 puff q 4-6 hrs PRN 01/24 PROAIR HFA 108 (90 BASE) MCG/ACT AERS ALBUTEROL SULFATE Inactive PERCOCET 10-325 MG ORAL TABS 1 every 4 hours as needed PERCOCET 10-325 MG ORAL TABS 3481706 OXYCODONE-ACETAMINOPHEN Inactiv e AMOXICILLIN 875 MG TABS 1 tab by mouth twice daily 201 07/18/07 AMOXICILLIN 875 MG TABS 745367 AMOXICILLIN Inactive KEFLEX 500 MG CAP 1 po tid x 10 days KEFLEX 500 MG CAP 918741 CEPHALEXIN Inactive AMOXICILLIN 875 MG TABS 1 tab by mouth twice daily 201 07/19/27 AMOXICILLIN 875 MG TABS 745348 AMOXICILLIN Inactive AMOXICILLIN 875 MG TABS 1 tab by mouth twice daily 201 08/09/13 AMOXICILLIN 875 MG TABS 358876 AMOXICILLIN Inactive CIPRO 500 MG TAB 1 tablet by mouth twice daily CIPRO 500 MG TAB 739173 CIPROFLOXACIN HCL Inactive BACTRIM DS 800-160 MG TAB 1 tab by mouth twice daily 2 BACTRIM DS 800-160 MG TAB TRIMETHOPRIM-SULFAMETHOXAZOLE Inac tive LEVAQUIN 500 MG TABS 1 PO q day x 7 days LEVAQUIN 500 MG TABS 913200 LEVOFLOXACIN Inactive CLINDAMYCIN HCL 300 MG CAPS 1 po QID x 7 days CLINDAMYCIN HCL 300 MG CAPS 140853 CLINDAMYCIN HCL Inactive AUGMENTIN 875-125 MG TAB 1 tab by mouth twice daily with food 20 22/05/07 AUGMENTIN 875-125 MG TAB 480804 AMOXICILLIN-POT CLAVULA [place] Inactive DIFLUCAN 150 MG TAB 1 qODay x 2 doses DIFLUCAN 150 MG TAB 264641 FLUCONAZOLE Inactive PREDNISONE 20 MG TAB 2 tabs daily for 3 days, 1 t ab daily for 3 days, 1/2 tab daily for 2 days PREDNISONE 20 MG TAB 766710 PREDNISON E Inactive AUGMENTIN 875-125 MG TAB 1 tab by mouth twice daily with food 20 21/10/13 AUGMENTIN 875-125 MG TAB 020630 AMOXICILLIN-POT CLAVULA [place] Inactive Advance Directives Directive Description Start Date PERMISSION TO SHARE Immunizations Vaccine Administration Date Value Standard Alf cription Seasonal influenza vaccine, injectable, containing preservative, for > 3 years old (Afluria, FluLaval, Fluzone, Fluvirin, Fluarix, Agriflu(>= 18 yo)) Fluzone (>3 yrs.) [[id number]] Influenza, seasonal, inject able Seasonal influenza vaccine, injectable, preservative free, for > 3 years old (Afluria, FluLaval, Fluzone, Fluvirin, Fluarix, Agriflu(>= 18 yo)) Fluzone preservative free (>3 yrs.) [[id number]] Influenza, seasonal, injectable, preservative free Seasonal influenza vaccine, injectable, containing preservative, for > 3 years old (Afluria, FluLaval, Fluzone, Fluvirin, Fluarix, Agriflu(>= 18 yo)) Fluzone (>3 yrs.) [[id number]] Influenza, seasonal, inject able Seasonal influenza vaccine, injectable, containing preservative, for > 3 years old (Afluria, FluLaval, Fluzone, Fluvirin, Fluarix, Agriflu(>= 18 yo)) Fluzone (>3 yrs.) [[id number]] Influenza, seasonal, inject able dT (Diphtheria and Tetanus) booster given [facility](adult) unspecified formulation Vital Signs Date [...] Panel - Chemistry sodium, serum 142 mmol/L 266-464 8001/05/12 potassium, serum 4.8 mmol/L 3.5-5.2 chloride, serum [...] Panel - Chemistry cholesterol, serum 165 mg/dL 730-631 1155/05/12 triglyceride, serum, fasting 524 mg/dL 30-200 HDL [...] negative Encounters Code Encounter Date Provider Facility CPT-53545 Level 2 Est. Patient 07:49:32 CDT Kalpesh goins MD [facility] CPT-71718 Level 3 New Patient 15:47:11 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 Bj huber MD [facility] CPT-41699 Level 4 Est. Patient 14:37:38 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 Abdirahman Rios MD [facility] CPT-31972 Level 2 Est. Patient 13:32:17 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 Kalpesh goins MD [facility] CPT-48140 Level 3 Est. Patient 17:32:57 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 Edilberto tiwari DO [facility] CPT-52790 Level 3 Est. Patient 17:22:33 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 Edilberto Keesha tiwari [facility] CPT-72766 Level 2 Est. Patient 16:57:09 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 Kalpesh goins MD [facility]-67622 Level 3 Est. Patient 14:03:08 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 Abdirahman Rios MD [facility] CPT-98900 Level 3 Est. Patient 18:12:34 CDT Shola Wright [facility] CPT-38909 Level 3 Est. Patient 19:34:46 CDT Shola Wright [facility] CPT-61880 Level 3 Est. Patient 14:19:37 CDT Abdirahman Rios MD [facility] CPT-89385 Level 3 Est. Patient 14:11:58 CDT Kalpesh goins MD [facility]-59517 Level 3 Est. Patient 16:50:00 CDT Michelle MERCADO [facility] CPT-44825 Level 3 Est. Patient 17:11:32 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 Brandie bates MD PhD [facility]-47725 Level 3 Est. Patient 16:31:47 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 Shola Wright [facility] CPT-50122 Level 3 Est. Patient 17:51:10 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 Abhinav Galvan MD [facility] CPT-73735 Level 4 Est. Patient 12:54:56 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 Kalpesh goins MD [facility]-46841 Level 4 Est. Patient 12:53:56 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 Kalpesh goins MD [facility] CPT-43597 Level 3 Est. Patient 17:56:58 CDT Shola Wright [facility] CPT-27456 Level 3 Est. Patient 14:26:20 CDT Janak MCGILL [facility] CPT-00312 Level 3 Est. Patient 09:38:41 CDT Shola Wright [facility] CPT-00179 Level 3 Est. Patient 14:45:26 CDT Edilberto tiwari [facility] CPT-75173 Level 3 Est. Patient 10:51:33 CDT Hira muniz [facility] CPT-46228 Level 3 Est. Patient 11:57:55 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 Shola Thao Francesabi [facility] CPT-83135 Level 3 Est. Patient 09:53:33 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 Edilberto tiwari [facility] CPT-26141 Level 3 Est. Patient 14:42:54 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 Abhinav Galvan MD [facility] [facility]-84403 Level 3 Est. Patient 15:10:02 CDT Janak butcher [facility] CPT-08416 Level 3 Est. Patient 15:20:20 CDT Theo dennis MD [facility]-10452 Level 2 Est. Patient 14:08:57 CDT Kalpesh goins MD [facility]-76828 Level 3 Est. Patient 13:56:19 CDT Abdirahman Rios MD [facility] CPT-65610 Level 3 Est. Patient 13:59:37 CDT Abdirahman Rios MD [facility] CPT-94591 Level 2 Est. Patient 14:44:59 CDT Kalpesh goins MD [facility]-72313 Level 3 Est. Patient 06:06:23 CDT Edilberto tiwari [facility] CPT-51761 Level 3 Est. Patient 15:23:54 CDT Abdirahman Rios MD [facility] CPT-82048 Level 3 Est. Patient 15:43:49 CDT Abdirahman Rios MD [facility] CPT-77931 Level 3 Est. Patient 12:46:47 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 Abdirahman Rios MD [facility] CPT-58244 Level 3 Est. Patient 08:13:35 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 Abdirahman Rios MD [facility] CPT-67700 Level 2 Est. Patient 09:36:42 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 Abdirahman Rios MD [facility] CPT-20913 Level 3 Est. Patient 10:56:43 CDT Abdirahman Rios MD [facility] CPT-24073 Level 3 Est. Patient 18:24:52 CDT Abdirahman Rios MD [facility] CPT-22400 Level 3 Est. Patient 13:27:22 CDT Abdirahman Rios MD [facility] Procedures Code Procedure Name Date Entry Date Standard Desc ription CPT-48644 Postop F/U Visit 14:40:59 CDT CPT-98442 Postop F/U Visit 15:02:46 CDT CPT-02995 Postop F/U Visit 11:29:00 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 CPT-J0696 Rocephin 1000 mg (Ceftriaxone) 17:22:33 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 CPT-52631 Postop F/U Visit 18:41:07 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 CPT-09932 Postop F/U Visit 08:19:08 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 CPT-00113 Immunization Single Admin 16:41:53 CDT 2013 CPT-28703 Fluzone Quadrivalent Intramuscular Suspe nsion 0.5 ML 16:41:53 CDT CPT-OV Office Visit 16:39:18 CDT CPT-OV Office Visit 16:16:36 CDT CPT-OV Office Visit 15:34:48 CDT CPT-70288 Postop F/U Visit 14:50:12 CDT CPT-12300 Postop F/U Visit 14:41:10 CDT CPT-04279 Venipuncture Draw Fee 11:38:04 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 CPT-84096 Postop F/U Visit 19:02:59 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 CPT-89573 Postop F/U Visit 12:04:54 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 CPT-63604 Administration single or combination vac cine inc oral 15:56:43 CDT CPT-96749 Influenza split virus > age 3 15:56:43 CDT CPT-14560 Hand comp min 3V 14:25:19 CDT CPT-72732 Postop F/U Visit 21:40:51 CDT CPT-68414 Postop F/U Visit 10:58:43 CDT CPT-71882 Administration single or combination vac cine inc oral 12:33:54 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 CPT-28512 Influenza Preservative Free split virus >age 3 12:33:54 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 CPT-53768 Administration single or combination vac cine inc oral 09:30:51 CDT CPT-70401 Influenza split virus > age 3 09:30:51 CDT CPT-75408 Postop F/U Visit 15:14:53 CDT CPT-59297 Postop F/U Visit 13:50:14 CDT CPT-76126 Postop F/U Visit 13:34:52 CDT CPT-OV Office Visit 16:55:03 CDT CPT-33143 [place] of cervix w bx ECC 13:32:50 CDT 10/19 CPT-J1885 Toradol 60 mg (Ketorolac) 15:31:59 CDT 2011 CPT-J1885 Toradol 60 mg (Ketorolac) 15:23:54 CDT 2011 CPT-64236 Visit 11:34:37 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 CPT-96515 Visit 10:52:39 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 CPT-12562 Visit 10:12:02 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 CPT-55782 Visit 11:22:43 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 CPT-79729 Visit 11:24:12 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 CPT-33394 Visit 10:47:05 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 CPT-OV Office Visit 10:26:16 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 CPT-OV Office Visit 15:34:31 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 CPT-11175 Visit 10:42:08 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 CPT-24825 Visit 10:52:45 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 CPT-000 Give Appropriate Flu Vaccine 16:56:41 CDT 2 CPT-40639 Administration single or combination vac cine inc oral 10:33:21 CDT CPT-53104 Influenza split virus > age 3 10:33:21 CDT CPT-51429 Visit 13:23:09 CDT CPT-16497 Visit 18:24:52 CDT CPT-35948 Sono OB comp > 14 weeks 12:07:49 CDT 04/07
--- OUTSIDE RECORDS SUMMARY | 2020-01-18 16:32 | XMS REPORT | Clinical Summary ---
Author Author Admin, Jeri Rashid Organization [facility] Address Unknown Phone Unavailable Allergies, Adverse Reactions, Alerts Allergy Name Reaction Description Start Date Severity Status Pr ovider SULFA Critical Active Jillina Frazel l MEDICAL RECRUITER TORADOL Rash Severe Active Rajni Yokum AP [...] at surgical incision 782.0 Active Hira Moser MEDICAL RECRUITER Disturbance of skin sensation , INCIDENTAL [...] Julian MD ACUTE BRONCHITIS ICD-466.0 Inactive Good uJlian MD JAW PAIN ICD-526.9 Inactive Good collier [...] EXT CREA apply tid, prn LIDOCAIN E-PRILOCAINE 94049717170 Active Jillina Frajalenl MEDICAL RECRUITER Active PERCOCET 5-325 MG TAB 1 tab po q 6 hours, prn OXYCODONE-ACETAMINOPHEN 04691233139 Active Jillina Frazell MEDICAL RECRUITER Active UHBLXGYDDV-WJJZ-KEMOSAYL 50-325-40 MG ORAL TABS 1 po TID PRN Headaches UECMEEHJZJ-[id number] 65992314056 No Longer Active Jillina Karmenl MEDICAL RECRUITER Active GLYDO 2 % EXT GEL apply to painful areas as needed 201 12/10/13 LIDOCAINE HCL 76738564067 No Longer Active Jillina Karmenl MEDICAL RECRUITER Ac tive PERCOCET 10-325 MG ORAL TABS 1 every 4 hous as needed OXYCODONE-ACETAMINOPHEN 73065141857 No Longer Active Jillina Karmenl MEDICAL RECRUITER Active LC-4 LIDOCAINE 4 % EXT CREA apply to painful area every 12 h ours or as needed LIDOCAINE 38465291157 No Longer Active Jillina Fra janee MEDICAL RECRUITER Active CHANTIX STARTING MONTH MARGARITA 0.5 MG X 11 & 1 MG X 42 TAB S 0.5mg daily for 3 days, then 0.5mg BID for 4 days, then 1mg BID VARENICL INE TARTRATE 91863260817 Active Abdirahman Rios MD Active AMOXICILLIN 500 MG CAPS 2 po BID x 10 days AMOX ICILLIN 48951612639 No Longer Active Abdirahman Rios MD Active PROMETHAZINE HCL 25 MG TABS 1 four times a day as needed for nausea/vomiting PROMETHAZINE HCL 74484644192 No Longer Active Abdirahman Rios MD Active LC-4 LIDOCAINE 4 % EXT CREA apply q 6 hours, prn 08/03 LIDOCAINE 85310178309 No Longer Active Kalpesh Dong MD Active PERCOCET 10-325 MG TABS 1 tablet every 8 hours as needed for antonia n OXYCODONE-ACETAMINOPHEN 15624456772 No Longer Active Kalpesh Dong MD Active HYDROCODONE-ACETAMINOPHEN 5-325 MG TABS 1 tab by mouth every 6 hours as needed for pain HYDROCODONE-ACETAMINOPHEN 58171031117 No Longer Active Kalpesh Dong MD Active AUGMENTIN 875-125 MG TAB 1 tab by mouth twice daily with food 20 23/05/16 AMOXICILLIN-POT CLAVULANATE 50022908986 No Longer Active Lizeth hi Yokum MEDICAL RECRUITER 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 FLUTICASONE PROPIONATE 03481983766 No Longer Ac tive Rajni Yokum MEDICAL RECRUITER Active PERCOCET 10-325 MG ORAL TABS take 1 tab by mouth q 4hours as needed for pain OXYCODONE-ACETAMINOPHEN 54725135744 No Longer Active Rajni Yokum MEDICAL RECRUITER Active PERCOCET 10-325 MG ORAL TABS one every 6 hours prn pain OXYCODONE-ACETAMINOPHEN 89508849743 No Longer Active Rajni Yokum MEDICAL RECRUITER Active IBUPROFEN 800 MG TABS 1 tab po tid, with food I BUPROFEN 84636601757 Active Jillsiri Hamiltonzell MEDICAL RECRUITER Active DICLOFENAC SODIUM 50 MG TBEC 1 tablet by mouth four times da tom PRN Pain DICLOFENAC SODIUM 73992360562 No Longer Active Rajni Yokum MEDICAL RECRUITER Active VIIBRYD 10 & 20 & 40 MG KIT 1 po qd as directed 07/24 VILAZODONE HCL 17378687348 No Longer Active Rajni Yokum MEDICAL RECRUITER Active ONDANSETRON 4 MG TBDP 1 q4h PRN nausea ONDANSET KELBY 24188078202 No Longer Active Rajnicristina Oconnorum MEDICAL RECRUITER Active PERCOCET 10-325 MG TABS 1 tablet every 8 hours as needed for antonia n OXYCODONE-ACETAMINOPHEN 13261864092 No Longer Active Rajni cox MEDICAL RECRUITER Active HYDROCODONE-ACETAMINOPHEN 5-325 MG TABS 1 po TID PRN Pain 9 HYDROCODONE-ACETAMINOPHEN 37570607770 No Longer Active Abdirahman Rios MD Active LXNSVJWHQE-KMH-EPHILFUX 50-325-40 MG ORAL CAPS 1-2 po TID ID N Headache UCAWFRHEEL-FRSQXRW-YNUMLCHH 49029641620 No Longer Act krishna Kalpesh Dogn MD Active ALPRAZOLAM 0.5 MG TABS 1 po BID PRN Anxiety ALP RAZOLAM 14024810768 No Longer Active Kalpesh Dong MD Active TRAZODONE HCL 100 MG TAB 0.5 to 1 po qHS PRN Insomnia TRAZODONE HCL 89717741605 No Longer Active Kalpesh Dong MD Activ e HYDROCODONE-ACETAMINOPHEN 5-325 MG TABS 1 po q6hr PRN Pain 04/09 HYDROCODONE-ACETAMINOPHEN 98280616315 No Longer Active Kalpesh Dong MD Active CYMBALTA 30 MG CPEP 1 cap by mouth daily DULOXE CLEO HCL 68967870537 No Longer Active Abdirahman Rios MD Active IBUPROFEN 600 MG ORAL TABS 1 by mouth twice a day 2014 IBUPROFEN 95422728090 No Longer Active Abdirahamn Rios MD Activ e PERCOCET 5-325 MG TAB 1 tab po q 6 hours, prn severe pain 1 OXYCODONE-ACETAMINOPHEN 90965541674 No Longer Active Abdirahman Rios MD Active SPRINTEC 28 0.25-35 MG-MCG TABS 1 pill by mouth daily for bi rth control NORGESTIMATE-ETH ESTRADIOL 13367362909 No Longer Acti ve Matthewllina Joyzell MEDICAL RECRUITER Active CYCLOBENZAPRINE HCL 10 MG TABS 1 tablet by mouth three times daily as needed for muscle spasm/pain CYCLOBENZAPRINE HCL 24702258731 No Longer Active Jillina Frazell MEDICAL RECRUITER Active HYDROCODONE-ACETAMINOPHEN 5-325 MG TABS 1 po q6hr PRN Pain 03/09 HYDROCODONE-ACETAMINOPHEN 92442482070 No Longer Active Matthewllina Joyzel l MEDICAL RECRUITER Active AUGMENTIN 500-125 MG ORAL TABS 1 by mouth twice a day AMOXICILLIN-POT CLAVULANATE 18016414843 No Longer Active Jillina Frazell MEDICAL RECRUITER Active DICLOFENAC SODIUM 50 MG TBEC 1 tablet by mouth four times da tom PRN Pain DICLOFENAC SODIUM 66706949993 No Longer Active Karenin a Karmenl MEDICAL RECRUITER Active PROMETHAZINE HCL 25 MG TABS 1 four times a day as needed for nausea/vomiting PROMETHAZINE HCL 38525089600 No Longer Active Abdirahman Rios MD Active HYDROCODONE-ACETAMINOPHEN 5-325 MG TABS 1 tab by mouth every 6 hours as needed PRN Pain HYDROCODONE-ACETAMINOPHEN 79510349171 No Longer Active Abdirahman Rios MD Active GEMFIBROZIL 600 MG TABS 1 po BID GEMFIBROZIL 01518066 005 Active Abdirahman Rios MD Active PERCOCET 5-325 MG ORAL TABS 1 every 6 hours as needed OXYCODONE-ACETAMINOPHEN 24483329859 No Longer Active Abdirahman Rios MD Active PERCOCET 5-325 MG TAB 1 tab po q 6 -8 hours, prn for severe pain OXYCODONE-ACETAMINOPHEN 89037956688 No Longer Active Abdirahman Rios MD Active HYDROCODONE-ACETAMINOPHEN 5-325 MG TABS 1 po q6hr PRN pain 06/30 HYDROCODONE-ACETAMINOPHEN 49416232682 No Longer Active Hira roman MEDICAL RECRUITER Active GLUCOPHAGE 500 MG ORAL TABS one by mouth 3 times a day METFORMIN HCL 90338080350 No Longer Active Matthewllina Karmenl MEDICAL RECRUITER Ac tive PERCOCET 10-325 MG TABS 1 tab by mouth every 6 hours , use sparingly for severe pain OXYCODONE-ACETAMINOPHEN 32042324939 No Longer A ctive Abdirahman Rios MD Active EMLA 2.5-2.5 % EXT CREA apply to skin lesion q 6 hours, prn 2014 LIDOCAINE-PRILOCAINE 95412973259 No Longer Active Abdirahman Rios MD Active PERCOCET 10-325 MG ORAL TABS 1 every 4 hours as needed OXYCODONE-ACETAMINOPHEN 65371406483 No Longer Active Abdirahman Rios MD Active AUGMENTIN 875-125 MG TAB 1 tab by mouth twice daily with food 20 21/10/13 AMOXICILLIN-POT CLAVULANATE 28263883657 No Longer Active Ursula Moser APRN Active PROAIR HFA 108 (90 BASE) MCG/ACT AERS 2 puff q 4-6 hrs PRN 01/24 ALBUTEROL SULFATE 99127898092 No Longer Active Kalpesh Dong MD Active PREDNISONE 20 MG TAB 2 tabs daily for 3 days, 1 t ab daily for 3 days, 1/2 tab daily for 2 days PREDNISONE 16019943415 No Longer Active Abdirahman Rios MD Active KEFLEX 500 MG CAP 1 po qid CEPHALEXIN 415337511 20 No Longer Active Kalpesh Dong MD Active PERCOCET 5-325 MG TAB 1 every 6 hours as needed OXYCODONE-ACETAMINOPHEN 71294175385 No Longer Active Shola MCGILL Active LC-5 LIDOCAINE 5 % CREA apply 1 time daily to affected area 2013 LIDOCAINE (ANORECTAL) 66910014235 No Longer Active Hira muniz MEDICAL RECRUITER Active HYDROCODONE-ACETAMINOPHEN 10-325 MG TABS 1 by mouth ev chaka 8 hours as needed for pain HYDROCODONE-ACETAMINOPHEN 90449421457 No Longer Active Jillina Karmenl MEDICAL RECRUITER Active LORATADINE 10 MG TABS 1 tablet by mouth daily L ORATADINE 29102118019 No Longer Active Jillina Frazell MEDICAL RECRUITER Active DIFLUCAN 150 MG TAB 1 qODay x 2 doses FLUCONAZO LE 30032585894 No Longer Active Jillina Frazell MEDICAL RECRUITER Active CYCLOBENZAPRINE HCL 10 MG TABS 1/2 - 1 tab PO tid PRN back p ain, muscle spasm CYCLOBENZAPRINE HCL 13468720868 No Longer Active Karen siri Frazell MEDICAL RECRUITER Active AUGMENTIN 875-125 MG TAB 1 tab by mouth twice daily with food 20 22/05/07 AMOXICILLIN-POT CLAVULANATE 49706927355 No Longer Active Loida Rios MD Active MOBIC 15 MG TABS 1 tab daily MELOXICAM 638165308 14 No Longer Active Abdirahman Rios MD Active PERCOCET 7.5-325 MG TABS 1 PO tid PRN pain OXYCODONE-ACETAMINOPHEN 42025932274 No Longer Active Abdirahman Rios MD Active LIDODERM 5 % PTCH One patch to painful area ID N. On for 12 hrs, off for 12 hrs. LIDOCAINE 18448256922 No Longer Active Abdirahman Rios MD Active PERCOCET 7.5-325 MG TABS 1 PO q 8 hrs PRN pain OXYCODONE-ACETAMINOPHEN 74496393990 No Longer Active Shola MCGILL Active HYDROCODONE-ACETAMINOPHEN 7.5-325 MG TABS 1 by mouth e very 6 hours as needed for pain HYDROCODONE-ACETAMINOPHEN 25393241071 No Longer Active Good Julian MD Active CLINDAMYCIN HCL 300 MG CAPS 1 po QID x 7 days CLINDAMYCIN HCL 22071327078 No Longer Active Abdirahman Rios MD Activ e BACTRIM DS 800-160 MG TABS 1 po BID x 7 days 5 SULFAMETHOXAZOLE-TRIMETHOPRIM 75210205289 No Longer Active Abdirahman Rios MD Active ENDOCET 10-325 MG TABS 1 q 6 hr prn OXYCODONE-ACETAMINOPHEN 32982818550 No Longer Active Abdirahman Rios MD Active IBUPROFEN 800 MG TABS 1 tid prn IBUPROFEN 040840 78791 No Longer Active Abdirahman Rios MD Active BACTRIM DS 800-160 MG TABS by mouth twice a day 11/05 SULFAMETHOXAZOLE-TRIMETHOPRIM 49190657001 No Longer Active Good Julian MD Active HYDROCODONE-ACETAMINOPHEN 7.5-325 MG TABS 1 four times a day as needed for pain HYDROCODONE-ACETAMINOPHEN 84814162814 No Longer Activ e Good Julian MD Active KEFLEX 500 MG CAP 1 tab po tid CEPHALEXIN 006219 01713 No Longer Active Hira Moser APRN Active IBUPROFEN 800 MG TAB 1 pill three times daily as needed for pain IBUPROFEN 45544756319 No Longer Active Kalpesh Dong MD Active PROMETHAZINE-CODEINE 6.25-10 MG/5ML SYRP 1 tsp every 6 hrs prn c ough PROMETHAZINE-CODEINE 43340827703 No Longer Active Kalepsh Carr Active HYDROCODONE-ACETAMINOPHEN 5-325 MG TABS 1 tab by mouth every 6 hours as needed HYDROCODONE-ACETAMINOPHEN 51574944455 No Longer Activ e Shola MCGILL Active CEPHALEXIN 500 MG CAPS 1 PO bid x 7 days CEPHAL EXIN 62014455411 No Longer Active Shola MCGILL Active BACTRIM DS 800-160 MG TAB 1 tab by mouth twice daily 2 TRIMETHOPRIM-SULFAMETHOXAZOLE 74927893407 No Longer Active Kalpesh Dong MD Active HYDROCODONE-ACETAMINOPHEN 5-325 MG TABS 1 PO tid PRN pain 5 HYDROCODONE-ACETAMINOPHEN 35898680302 No Longer Active Abhinav Galvan MD Active IMPLANON 68 MG IMPL IMPLANTED IN LEFT ARM ETONO GESTREL 76103091388 No Longer Active Hira Moser APRN Active AMOXICILLIN 500 MG TABS 2 tabs PO bid x 10 d AM OXICILLIN 83689334572 No Longer Active Kalpesh Dong MD Active LEVAQUIN 500 MG TABS 1 PO q day x 7 days LEVOFL OXACIN 89487701833 No Longer Active Shola MCGILL Active AMITRIPTYLINE HCL 25 MG TAB 1 tab by mouth daily 60 minutes before bedtime AMITRIPTYLINE HCL 30198249764 No Longer Active Shola MCGILL Active LORTAB 5 5-500 MG TABS 1/2 to 1 tablet by mouth go ry 6 hours as needed for pain HYDROCODONE-ACETAMINOPHEN 48046117461 No Longer Active Shola MCGILL Active CEPHALEXIN 500 MG TABS Take one by mouth four times daily, morning, noon, early evening and bedtime. CEPHALEXIN 35654074985 No Long er Active Hira Moser APRN Active TYLENOL/CODEINE #3 300-30 MG TAB 1-2 po q6hr PRN Pain ACETAMINOPHEN-CODEINE 35128749798 No Longer Active Edilberto Marino DO Active PRISTIQ 50 MG NT25S-DOU 1 po qd DESVENLAFAXI NE SUCCINATE 71690821518 No Longer Active Edilberto Marino DO Active PENICILLIN V POTASSIUM 500 MG TAB 1 four times a day 2 PENICILLIN V POTASSIUM 34449453673 No Longer Active Edilberto Marino DO Active DOXYCYCLINE HYCLATE 100 MG CAPS Take one (1) tablet by mouth twice a day DOXYCYCLINE HYCLATE 44727496869 No Longer Active Ronnie Galvan MD Active HYDROCODONE-ACETAMINOPHEN 5-325 MG TABS 1 po q 6hr PRN Pain 2011 HYDROCODONE-ACETAMINOPHEN 88414167054 No Longer Active Patri joan Perez RN Active BACTRIM DS 800-160 MG TAB 1 tab by mouth twice daily 2 TRIMETHOPRIM-SULFAMETHOXAZOLE 27192085549 No Longer Active Kalpesh Dong MD Active LORTAB 5 5-500 MG TABS 1/2 to 1 tablet by mouth go ry 4 hours as needed for pain HYDROCODONE-ACETAMINOPHEN 15999866050 No Longer Active Kalpesh Dong MD Active GENERESS FE 0.8-25 MG-MCG CHEW Take one by mouth daily NORETHIN-ETH ESTRADIOL-FE 39502662945 No Longer Active Kalpesh Dong MD Active HYDROCODONE-ACETAMINOPHEN 7.5-500 MG TABS 1-2 every 4 hours as needed HYDROCODONE-ACETAMINOPHEN 27623404193 No Longer Activ e Kalpesh Dong MD Active FERROUS SULFATE 325 (65 FE) MG TABS 1 tablet by mouth twice yung y FERROUS SULFATE 94155177533 No Longer Active Kalpesh Dong MD Active IBUPROFEN 600 MG TAB 1 po q6-8hr PRN IBUPROFEN 37433402127 No Longer Active Kalpesh Dong MD Active SPIRONOLACTONE 25 MG TAB 1 tablet by mouth daily 01/22 SPIRONOLACTONE 38826150885 No Longer Active Kalpesh Dong MD Acti ve HYDROCODONE-ACETAMINOPHEN 7.5-325 MG TABS 1 po QID PRN Pain 2011 HYDROCODONE-ACETAMINOPHEN 44298946142 No Longer Active Kalpesh Dong MD Active CLINDAMYCIN HCL 300 MG CAPS 1 po q6hr x 7 days CLINDAMYCIN HCL 22933226377 No Longer Active Edilberto Marino DO Active PREDNISONE 20 MG TAB 2 tabs daily for 4 days, 1 t ab daily for 4 days, 1/2 tab daily for 4 days PREDNISONE 17035833372 No Longer Active Edilberto Marino DO Active PERCOCET 5-325 MG TABS 1 tablet by mouth every 6 hours as ne eded for pain OXYCODONE-ACETAMINOPHEN 36331815283 No Longer Active Abdirahman Rios MD Active VITAMINS TABS Take one by mouth daily MV & MIN W/FE-FA TABS 04758618048 No Longer Active Abdirahman Rios MD Active LUIS 3-0.02 MG TABS 1 tablet by mouth daily as directed DROSPIRENONE-ETHINYL ESTRADIOL 65704912427 No Longer Active Abdirahman Rios MD Active LORATADINE 10 MG TABS 1 tablet by mouth daily L ORATADINE 66537234636 No Longer Active Kalpesh Dong MD Active HYDROCODONE-ACETAMINOPHEN 5-325 MG TABS 1 po q 6hr PRN Pain 2010 HYDROCODONE-ACETAMINOPHEN 79004788045 No Longer Active Edilberto Marino DO Active BACTRIM DS 800-160 MG TAB 1 tab by mouth twice daily 2 TRIMETHOPRIM-SULFAMETHOXAZOLE 70472616551 No Longer Active Abdirahman Rios MD Active 28-0.8 MG TABS Take one by mouth daily 09/20 VIT-FE FUMARATE-FA 76123754609 No Longer Active Abdirahman Rios MD Active CIPRO 500 MG TAB 1 tablet by mouth twice daily CIPROFLOXACIN HCL 07206771427 No Longer Active Abdirahman Rios MD Active BENADRYL 25 MG CAP 1 po q8hr PRN Congestion DIPHENHYDRAMINE HCL 31250189755 No Longer Active Abdirahman Rios MD Active ZOLOFT 50 MG TAB 1 po qd SERTRALINE HCL 701767 42501 No Longer Active Abdirahman Rios MD Active AMOXICILLIN 875 MG TABS 1 tab by mouth twice daily 201 08/09/13 AMOXICILLIN 45948510296 No Longer Active Abdirahman Rios MD Activ e AMOXICILLIN 875 MG TABS 1 tab by mouth twice daily 201 07/19/27 AMOXICILLIN 41111907997 No Longer Active Abdirahman Rios MD Activ e BACTRIM DS 800-160 MG TAB 2 tab by mouth twice daily 2 TRIMETHOPRIM-SULFAMETHOXAZOLE 45209398676 No Longer Active Abdirahman Rios MD Active KEFLEX 500 MG CAP 1 po tid x 10 days CEPHALEXIN 44902224156 No Longer Active Abdirahman Rios MD Active AMOXICILLIN 875 MG TABS 1 tab by mouth twice daily 201 07/18/07 AMOXICILLIN 32856161781 No Longer Active Abdirahman Rios MD Activ e BACTRIM DS 800-160 MG TAB 2 tab by mouth twice daily 2 BACTRIM DS 800-160 MG TAB 877269 TRIMETHOPRIM-SULFAMETHOXAZOLE Inactive ZOLOFT 50 MG TAB 1 po qd ZOLOFT 50 MG TAB 3129 41 SERTRALINE HCL Inactive BENADRYL 25 MG CAP 1 po q8hr PRN Congestion BENADRYL 25 MG CAP 2135175 DIPHENHYDRAMINE HCL Inactive 28-0.8 MG TABS Take one by mouth daily 09/20 28-0.8 MG TABS VIT-FE FUMARATE-FA Inactive HYDROCODONE-ACETAMINOPHEN 5-325 MG TABS 1 po q 6hr PRN Pain 2010 HYDROCODONE-ACETAMINOPHEN 5-325 MG TABS 537821 HYDROCODONE-ACETAMINOPHEN Inactive LORATADINE 10 MG TABS 1 tablet by mouth daily LORATADINE 10 MG TABS 281715 LORATADINE Inactive LUIS 3-0.02 MG TABS 1 tablet by mouth daily as directed LUIS 3-0.02 MG TABS 850581 DROSPIRENONE-ETHINYL ESTRADIOL Inactive VITAMINS TABS Take one by mouth daily VITAMINS TABS MV & MIN W/FE-FA TABS Inactive PERCOCET 5-325 MG TABS 1 tablet by mouth every 6 hours as ne eded for pain PERCOCET 5-325 MG TABS 2566531 OXYCODONE-ACETAMIN OPHEN Inactive PREDNISONE 20 MG TAB 2 tabs daily for 4 days, 1 t ab daily for 4 days, 1/2 tab daily for 4 days PREDNISONE 20 MG TAB 799767 PREDNISON E Inactive CLINDAMYCIN HCL 300 MG CAPS 1 po q6hr x 7 days CLINDAMYCIN HCL 300 MG CAPS 210165 CLINDAMYCIN HCL Inactive HYDROCODONE-ACETAMINOPHEN 7.5-325 MG TABS 1 po QID PRN Pain 2011 HYDROCODONE-ACETAMINOPHEN 7.5-325 MG TABS 049015 HYDROCODONE-ACETAMINOPHEN Inactive SPIRONOLACTONE 25 MG TAB 1 tablet by mouth daily 01/22 SPIRONOLACTONE 25 MG TAB 710225 SPIRONOLACTONE Inactive IBUPROFEN 600 MG TAB 1 po q6-8hr PRN IBUPROFEN 600 MG TAB 547311 IBUPROFEN Inactive FERROUS SULFATE 325 (65 FE) MG TABS 1 tablet by mouth twice yung y FERROUS SULFATE 325 (65 FE) MG TABS 106835 FERROUS SULF ATE Inactive HYDROCODONE-ACETAMINOPHEN 7.5-500 MG TABS 1-2 every 4 hours as needed HYDROCODONE-ACETAMINOPHEN 7.5-500 MG TABS HYDROCODONE-ACETAMINOPHEN Inactive GENERESS FE 0.8-25 MG-MCG CHEW Take one by mouth daily GENERESS FE 0.8-25 MG-MCG CHEW [id number] NORETHIN-ETH ESTRADIOL-FE Inactive LORTAB 5 5-500 MG TABS 1/2 to 1 tablet by mouth go ry 4 hours as needed for pain LORTAB 5 5-500 MG TABS HYDROCODONE-A CETAMINOPHEN Inactive BACTRIM DS 800-160 MG TAB 1 tab by mouth twice daily 2 BACTRIM DS 800-160 MG TAB 516534 TRIMETHOPRIM-SULFAMETHOXAZOLE Inac tive HYDROCODONE-ACETAMINOPHEN 5-325 MG TABS 1 po q 6hr PRN Pain 2011 HYDROCODONE-ACETAMINOPHEN 5-325 MG TABS 083586 HYDROCODONE-ACETAMINOPHEN Inactive DOXYCYCLINE HYCLATE 100 MG CAPS Take one (1) tablet by mouth twice a day DOXYCYCLINE HYCLATE 100 MG CAPS 1217373 DOXYCYCLINE HYCLATE Inactive PENICILLIN V POTASSIUM 500 MG TAB 1 four times a day 2 PENICILLIN V POTASSIUM 500 MG TAB 539586 PENICILLIN V POTASSIUM Siri ctive PRISTIQ 50 MG [id number] 1 po qd PRISTIQ 50 MG [id number] DESVENLAFAXINE SUCCINATE Inactive TYLENOL/CODEINE #3 300-30 MG TAB 1-2 po q6hr PRN Pain TYLENOL/CODEINE #3 300-30 MG TAB 256016 ACETAMINOPHEN-CODEINE Inact krishna CEPHALEXIN 500 MG TABS Take one by mouth four times daily, morning, noon, early evening and bedtime. CEPHALEXIN 500 MG TABS 897514 CEPHALEXIN Inactive LORTAB 5 5-500 MG TABS 1/2 to 1 tablet by mouth go ry 6 hours as needed for pain LORTAB 5 5-500 MG TABS HYDROCODONE-A CETAMINOPHEN Inactive AMITRIPTYLINE HCL 25 MG TAB 1 tab by mouth daily 60 minutes before bedtime AMITRIPTYLINE HCL 25 MG TAB 893189 AMITRIPTYLINE HCL Inactive AMOXICILLIN 500 MG TABS 2 tabs PO bid x 10 d 7 AMOXICILLIN 500 MG TABS 178833 AMOXICILLIN Inactive IMPLANON 68 MG IMPL IMPLANTED IN LEFT ARM IMPLANON 68 MG IMPL ETONOGESTREL Inactive HYDROCODONE-ACETAMINOPHEN 5-325 MG TABS 1 PO tid PRN pain 5 HYDROCODONE-ACETAMINOPHEN 5-325 MG TABS 412468 HYDROCODONE-ACETAMIN OPHEN Inactive BACTRIM DS 800-160 MG TAB 1 tab by mouth twice daily 2 BACTRIM DS 800-160 MG TAB [id number] TRIMETHOPRIM-SULFAMETHOXAZOLE Inac tive CEPHALEXIN 500 MG CAPS 1 PO bid x 7 days CEPHALEXIN 500 MG CAPS 611745 CEPHALEXIN Inactive HYDROCODONE-ACETAMINOPHEN 5-325 MG TABS 1 tab by mouth every 6 hours as needed HYDROCODONE-ACETAMINOPHEN 5-325 MG TABS 210044 HYDROCODONE-ACETAMINOPHEN Inactive PROMETHAZINE-CODEINE 6.25-10 MG/5ML SYRP 1 tsp every 6 hrs prn c ough PROMETHAZINE-CODEINE 6.25-10 MG/5ML SYRP 628157 PROMETH AZINE-CODEINE Inactive IBUPROFEN 800 MG TAB 1 pill three times daily as needed for pain IBUPROFEN 800 MG TAB IBUPROFEN Inactive KEFLEX 500 MG CAP 1 tab po tid KEFLEX 500 MG CAP 790866 CEPHALEXIN Inactive HYDROCODONE-ACETAMINOPHEN 7.5-325 MG TABS 1 four times a day as needed for pain HYDROCODONE-ACETAMINOPHEN 7.5-325 MG TABS 286684 HYDROCODONE-ACETAMINOPHEN Inactive BACTRIM DS 800-160 MG TABS by mouth twice a day 11/05 BACTRIM DS 800-160 MG TABS 19820910 SULFAMETHOXAZOLE-TRIMETHOPRIM Inactive IBUPROFEN 800 MG TABS 1 tid prn IBUPROFEN 800 MG TABS 260845 IBUPROFEN Inactive ENDOCET 10-325 MG TABS 1 q 6 hr prn ENDOC ET 10-325 MG TABS 2097577 OXYCODONE-ACETAMINOPHEN Inactive HYDROCODONE-ACETAMINOPHEN 7.5-325 MG TABS 1 by mouth e very 6 hours as needed for pain HYDROCODONE-ACETAMINOPHEN 7.5-325 MG TABS 478947 HYDROCODONE-ACETAMINOPHEN Inactive PERCOCET 7.5-325 MG TABS 1 PO q 8 hrs PRN pain PERCOCET 7.5-325 MG TABS 0172803 OXYCODONE-ACETAMINOPHEN Inactive LIDODERM 5 % PTCH One patch to painful area ID N. On for 12 hrs, off for 12 hrs. LIDODERM 5 % [facility] 0760445 LIDOCAINE Inactiv e PERCOCET 7.5-325 MG TABS 1 PO tid PRN pain PERCOCET 7.5- 325 MG TABS 5886154 OXYCODONE-ACETAMINOPHEN Inactive MOBIC 15 MG TABS 1 tab daily MOBIC 15 MG TABS 15 2695 MELOXICAM Inactive CYCLOBENZAPRINE HCL 10 MG TABS 1/2 - 1 tab PO tid PRN back p ain, muscle spasm CYCLOBENZAPRINE HCL 10 MG TABS 379512 CYCLOBENZA JOSEPH HCL Inactive LORATADINE 10 MG TABS 1 tablet by mouth daily LORATADINE 10 MG TABS 620446 LORATADINE Inactive HYDROCODONE-ACETAMINOPHEN 10-325 MG TABS 1 by mouth ev chaka 8 hours as needed for pain HYDROCODONE-ACETAMINOPHEN 10-325 MG TABS 946884 HYDROCODONE-ACETAMINOPHEN Inactive LC-5 LIDOCAINE 5 % CREA apply 1 time daily to affected area 2013 LC-5 LIDOCAINE 5 % CREA 7078035 LIDOCAINE (ANORECTAL) In active PERCOCET 5-325 MG TAB 1 every 6 hours as needed PERCOCET 5-325 MG TAB 0370255 OXYCODONE-ACETAMINOPHEN Inactive KEFLEX 500 MG CAP 1 po qid KEFLEX 500 MG CAP 30 9114 CEPHALEXIN Inactive PROAIR HFA 108 (90 BASE) MCG/ACT AERS 2 puff q 4-6 hrs PRN 01/24 PROAIR HFA 108 (90 BASE) MCG/ACT AERS ALBUTEROL SULFATE Inactive PERCOCET 10-325 MG ORAL TABS 1 every 4 hours as needed PERCOCET 10-325 MG ORAL TABS 6561778 OXYCODONE-ACETAMINOPHEN Inactiv e EMLA 2.5-2.5 % EXT CREA apply to skin lesion q 6 hours, prn 2014 EMLA 2.5-2.5 % EXT CREA 548905 LIDOCAINE-PRILOCAINE Siri ctive PERCOCET 10-325 MG TABS 1 tab by mouth every 6 hours , use sparingly for severe pain PERCOCET 10-325 MG TABS [id number] OXYCODONE-ACETAMINOPHEN Inactive GLUCOPHAGE 500 MG ORAL TABS one by mouth 3 times a day GLUCOPHAGE 500 MG ORAL TABS [id number] METFORMIN HCL Inactive HYDROCODONE-ACETAMINOPHEN 5-325 MG TABS 1 po q6hr PRN pain 06/30 HYDROCODONE-ACETAMINOPHEN 5-325 MG TABS [id number] HYDROCOD ONE-ACETAMINOPHEN Inactive PERCOCET 5-325 MG TAB 1 tab po q 6 -8 hours, prn for severe pain PERCOCET 5-325 MG TAB [id number] OXYCODONE-ACETAMINOPHEN In active PERCOCET 5-325 MG ORAL TABS 1 every 6 hours as needed PERCOCET 5-325 MG ORAL TABS [id number] OXYCODONE-ACETAMINOPHEN Inactive DICLOFENAC SODIUM 50 MG TBEC 1 tablet by mouth four times da tom PRN Pain DICLOFENAC SODIUM 50 MG TBEC [id number] DICLOFENAC S ODIUM Inactive AUGMENTIN 500-125 MG ORAL TABS 1 by mouth twice a day AUGMENTIN 500-125 MG ORAL TABS [id number] AMOXICILLIN-POT CLAVULANATE I nactive HYDROCODONE-ACETAMINOPHEN 5-325 MG TABS 1 po q6hr PRN Pain 03/09 HYDROCODONE-ACETAMINOPHEN 5-325 MG TABS [id number] HYDROCOD ONE-ACETAMINOPHEN Inactive CYCLOBENZAPRINE HCL 10 MG TABS 1 tablet by mouth three times daily as needed for muscle spasm/pain CYCLOBENZAPRINE HCL 10 MG TABS [id number] CYCLOBENZAPRINE HCL Inactive SPRINTEC 28 0.25-35 MG-MCG TABS 1 pill by mouth daily for bi rth control SPRINTEC 28 0.25-35 MG-MCG TABS [id number] NORGESTIMATE-ETH ESTRADIOL Inactive PERCOCET 5-325 MG TAB 1 tab po q 6 hours, prn severe pain PERCOCET 5-325 MG TAB [id number] OXYCODONE-ACETAMINOPHEN Inactive IBUPROFEN 600 MG ORAL TABS 1 by mouth twice a day 2014 IBUPROFEN 600 MG ORAL TABS [id number] IBUPROFEN Inactive CYMBALTA 30 MG CPEP 1 cap by mouth daily CYMBALTA 30 MG CPEP [id number] DULOXETINE HCL Inactive HYDROCODONE-ACETAMINOPHEN 5-325 MG TABS 1 po q6hr PRN Pain 04/09 HYDROCODONE-ACETAMINOPHEN 5-325 MG TABS [id number] HYDROCOD ONE-ACETAMINOPHEN Inactive TRAZODONE HCL 100 MG TAB 0.5 to 1 po qHS PRN Insomnia TRAZODONE HCL 100 MG TAB [id number] TRAZODONE HCL Inactive ALPRAZOLAM 0.5 MG TABS 1 po BID PRN Anxiety ALPRAZOLAM 0.5 MG TABS [id number] ALPRAZOLAM Inactive [id number]-WCIQHZTG 50-325-40 MG ORAL CAPS 1-2 po TID ID N Headache [id number] 50-325-40 MG ORAL CAPS 2 [id number] VBSOGOOVEV-JYLLBNM-JAVUZGED Inactive HYDROCODONE-ACETAMINOPHEN 5-325 MG TABS 1 po TID PRN Pain 9 HYDROCODONE-ACETAMINOPHEN 5-325 MG TABS [id number] HYDROCODONE-ACETAMIN OPHEN Inactive PERCOCET 10-325 MG TABS 1 tablet every 8 hours as needed for antonia n PERCOCET 10-325 MG TABS [id number] OXYCODONE-ACETAMINOPHEN Inactive ONDANSETRON 4 MG TBDP 1 q4h PRN nausea ON DANSETRON 4 MG TBDP 630243 ONDANSETRON Inactive VIIBRYD 10 & 20 & 40 MG KIT 1 po qd as directed 07/24 VIIBRYD 10 & 20 & 40 MG KIT VILAZODONE HCL Inactive DICLOFENAC SODIUM 50 MG TBEC 1 tablet by mouth four times da tom PRN Pain DICLOFENAC SODIUM 50 MG TBEC 491852 DICLOFENAC S ODIUM Inactive PERCOCET 10-325 MG ORAL TABS one every 6 hours prn pain PERCOCET 10-325 MG ORAL TABS 8561937 OXYCODONE-ACETAMINOPHEN Inactiv e PERCOCET 10-325 MG ORAL TABS take 1 tab by mouth q 4hours as needed for pain PERCOCET 10-325 MG ORAL TABS 1401341 OXYCODONE-ACETAMINOPHEN Inactive FLONASE ALLERGY RELIEF 50 MCG/ACT NASAL SUSP One spray in each nostril twice a day. FLONASE ALLERGY RELIEF 50 MCG/ACT NASAL S LONG TERM 565322 FLUTICASONE PROPIONATE Inactive AUGMENTIN 875-125 MG TAB 1 tab by mouth twice daily with food 20 23/05/16 AUGMENTIN 875-125 MG TAB 263008 AMOXICILLIN-POT [place] Inactive HYDROCODONE-ACETAMINOPHEN 5-325 MG TABS 1 tab by mouth every 6 hours as needed for pain HYDROCODONE-ACETAMINOPHEN 5-325 MG TABS 8 55998 HYDROCODONE-ACETAMINOPHEN Inactive PERCOCET 10-325 MG TABS 1 tablet every 8 hours as needed for antonia n PERCOCET 10-325 MG TABS [id number] OXYCODONE-ACETAMINOPHEN Inactive LC-4 LIDOCAINE 4 % EXT CREA apply q 6 hours, prn 08/03 LC-4 LIDOCAINE 4 % EXT CREA [id number] LIDOCAINE Inactive PROMETHAZINE HCL 25 MG TABS 1 four times a day as needed for nausea/vomiting PROMETHAZINE HCL 25 MG TABS 063802 PROMETHAZINE HCL Inactive LC-4 LIDOCAINE 4 % EXT CREA apply to painful area every 12 h ours or as needed LC-4 LIDOCAINE 4 % EXT CREA 2607485 LIDOCAINE Inactive PERCOCET 10-325 MG ORAL TABS 1 every 4 hous as needed PERCOCET 10-325 MG ORAL TABS 2712673 OXYCODONE-ACETAMINOPHEN Inactiv e GLYDO 2 % EXT GEL apply to painful areas as needed 201 12/10/13 GLYDO 2 % EXT GEL 7024715 LIDOCAINE HCL Inactive RDDJGVQJOQ-FXBV-JVQXYEPG 50-325-40 MG ORAL TABS 1 po TID PRN Headaches RHHYZBVSTW-[id number]-[id number] 50-325-40 MG ORAL TABS 771528 HXRDPHPXPL-GFJN-HYLGPCAV Inactive AMOXICILLIN 875 MG TABS 1 tab by mouth twice daily 201 07/18/07 AMOXICILLIN 875 MG TABS 794129 AMOXICILLIN Inactive KEFLEX 500 MG CAP 1 po tid x 10 days KEFLEX 500 MG CAP 012867 CEPHALEXIN Inactive AMOXICILLIN 875 MG TABS 1 tab by mouth twice daily 201 07/19/27 AMOXICILLIN 875 MG TABS 934517 AMOXICILLIN Inactive AMOXICILLIN 875 MG TABS 1 tab by mouth twice daily 201 08/09/13 AMOXICILLIN 875 MG TABS 526798 AMOXICILLIN Inactive CIPRO 500 MG TAB 1 tablet by mouth twice daily CIPRO 500 MG TAB 012696 CIPROFLOXACIN HCL Inactive BACTRIM DS 800-160 MG TAB 1 tab by mouth twice daily 2 BACTRIM DS 800-160 MG TAB 720728 TRIMETHOPRIM-SULFAMETHOXAZOLE Inac tive LEVAQUIN 500 MG TABS 1 PO q day x 7 days LEVAQUIN 500 MG TABS 235285 LEVOFLOXACIN Inactive CLINDAMYCIN HCL 300 MG CAPS 1 po QID x 7 days CLINDAMYCIN HCL 300 MG CAPS 845824 CLINDAMYCIN HCL Inactive AUGMENTIN 875-125 MG TAB 1 tab by mouth twice daily with food 20 22/05/07 AUGMENTIN 875-125 MG TAB 272855 AMOXICILLIN-POT [place] Inactive DIFLUCAN 150 MG TAB 1 qODay x 2 doses DIFLUCAN 150 MG TAB 247756 FLUCONAZOLE Inactive PREDNISONE 20 MG TAB 2 tabs daily for 3 days, 1 t ab daily for 3 days, 1/2 tab daily for 2 days PREDNISONE 20 MG TAB 208897 PREDNISON E Inactive AUGMENTIN 875-125 MG TAB 1 tab by mouth twice daily with food 20 21/10/13 AUGMENTIN 875-125 MG TAB 124247 AMOXICILLIN-POT [place] Inactive HYDROCODONE-ACETAMINOPHEN 5-325 MG TABS 1 tab by mouth every 6 hours as needed PRN Pain HYDROCODONE-ACETAMINOPHEN 5-325 MG TABS 8 89585 HYDROCODONE-ACETAMINOPHEN Inactive PROMETHAZINE HCL 25 MG TABS 1 four times a day as needed for nausea/vomiting PROMETHAZINE HCL 25 MG TABS 887245 PROMETHAZINE HCL Inactive AMOXICILLIN 500 MG CAPS 2 po BID x 10 days AMOXICILLIN 500 MG CAPS 765731 AMOXICILLIN Inactive Advance Directives Directive Description Start Date PERMISSION TO SHARE Immunizations Vaccine Administration Date Value Standard Alf cription Seasonal influenza vaccine, injectable, containing preservative, for > 3 years old (Afluria, FluLaval, Fluzone, Fluvirin, Fluarix, Agriflu(>= 18 yo)) Fluzone (>3 yrs.) [[id number]] Influenza, seasonal, inject able Seasonal influenza vaccine, injectable, preservative free, for > 3 years old (Afluria, FluLaval, Fluzone, Fluvirin, Fluarix, Agriflu(>= 18 yo)) Fluzone preservative free (>3 yrs.) [[id number]] Influenza, seasonal, injectable, preservative free Seasonal influenza vaccine, injectable, containing preservative, for > 3 years old (Afluria, FluLaval, Fluzone, Fluvirin, Fluarix, Agriflu(>= 18 yo)) Fluzone (>3 yrs.) [[id number]] Influenza, seasonal, inject able Seasonal influenza vaccine, injectable, containing preservative, for > 3 years old (Afluria, FluLaval, Fluzone, Fluvirin, Fluarix, Agriflu(>= 18 yo)) Fluzone (>3 yrs.) [[id number]] Influenza, seasonal, inject able dT (Diphtheria and [...] ... - Chemistry sodium, serum 137 mmol/L [phone]/02/24 carbon dioxide, venous blood 26.3 mmol/L 21.0-32 [...] Panel - Chemistry cholesterol, serum 181 mg/dL 532-116 4797/09/01 triglyceride, serum, fasting 341 mg/dL 30-200 HDL [...] negative Encounters Code Encounter Date Provider Facility CPT-72621 Level 3 Est. Patient 16:33:24 CDT Kalpesh goins MD [facility]-97061 Level 3 Est. Patient 08:29:37 CDT Hira muniz [facility]-20901 Level 3 Est. Patient 10:28:25 CDT Hira muniz [facility] CPT-63327 Level 4 Est. Patient 16:38:26 DISTRICT ATTORNEY Abdirahman Rios MD [facility]-58104 Level 3 Est. Patient 05:31:41 DISTRICT ATTORNEY Kalpesh goins MD [facility] CPT-82598 Level 3 Est. Patient 11:22:02 DISTRICT ATTORNEY Hira muniz [facility] CPT-97476 Level 3 Est. Patient 21:00:18 DISTRICT ATTORNEY Rajni danielson [facility] CPT-92405 Level 3 Est. Patient 14:15:00 DISTRICT ATTORNEY Kalpesh goins MD [facility] CPT-47072 Level 2 Est. Patient 19:57:52 DISTRICT ATTORNEY Rajni danielson [facility] CPT-45145 Level 3 Est. Patient 16:58:40 DISTRICT ATTORNEY Bj funes MD [facility] CPT-72488 Level 3 Est. Patient 08:51:33 CDT Kalpesh goins MD [facility]-90552 Level 4 Est. Patient 14:14:53 CDT Abdirahman Rios MD [facility] CPT-93620 Level 3 Est. Patient 15:47:40 CDT Kalpesh goins MD [facility] CPT-49632 Level 3 Est. Patient 10:57:26 CDT Abdirahman Rios MD [facility] CPT-46062 Level 3 Est. Patient 14:29:53 CDT Abhinav Galvan MD [facility] CPT-07317 Level 2 Est. Patient 16:33:01 CDT Kalpesh goins MD [facility] CPT-36629 Level 4 Est. Patient 16:44:56 CDT Abdirahman Rios MD [facility] CPT-93972 Level 2 Est. Patient 07:49:32 CDT Kalpesh goins MD [facility] CPT-87284 Level 3 New Patient 15:47:11 DISTRICT ATTORNEY jB huber MD [facility] CPT-14830 Level 4 Est. Patient 14:37:38 DISTRICT ATTORNEY Abdirahman Rios MD [facility] CPT-47423 Level 2 Est. Patient 13:32:17 DISTRICT ATTORNEY Kalpesh goins MD [facility] CPT-53826 Level 3 Est. Patient 17:32:57 DISTRICT ATTORNEY Edilberto tiwari [facility] CPT-69735 Level 3 Est. Patient 17:22:33 DISTRICT ATTORNEY Edilberto tiwari [facility] CPT-66364 Level 2 Est. Patient 16:57:09 DISTRICT ATTORNEY Kalpesh goins MD [facility] CPT-60995 Level 3 Est. Patient 14:03:08 DISTRICT ATTORNEY Abdirahman Rios MD [facility] CPT-22249 Level 3 Est. Patient 18:12:34 CDT Shola Wright [facility] CPT-99868 Level 3 Est. Patient 19:34:46 CDT Shola Wright [facility] CPT-07697 Level 3 Est. Patient 14:19:37 CDT Abdirahman Rios MD [facility] CPT-75479 Level 3 Est. Patient 14:11:58 CDT Kalpesh goins MD [facility] CPT-07599 Level 3 Est. Patient 16:50:00 CDT Michelle MERCADO [facility] CPT-69678 Level 3 Est. Patient 17:11:32 DISTRICT ATTORNEY Brandie bates MD PhD [facility] CPT-02214 Level 3 Est. Patient 16:31:47 DISTRICT ATTORNEY Shola Wright [facility] CPT-36319 Level 3 Est. Patient 17:51:10 DISTRICT ATTORNEY Abhinav Galvan MD [facility] CPT-52492 Level 4 Est. Patient 12:54:56 DISTRICT ATTORNEY Kalpesh goins MD [facility]-27048 Level 4 Est. Patient 12:53:56 DISTRICT ATTORNEY Kalpesh gions MD [facility]-69953 Level 3 Est. Patient 17:56:58 CDT Shola Wright [facility] CPT-13635 Level 3 Est. Patient 14:26:20 CDT Janak MCGILL [facility] CPT-91317 Level 3 Est. Patient 09:38:41 CDT Shola Wright [facility] CPT-98797 Level 3 Est. Patient 14:45:26 CDT Edilberto tiwari [facility] CPT-65581 Level 3 Est. Patient 10:51:33 [facility] Level 3 Est. Patient 11:57:55 DISTRICT ATTORNEY Shola Wright [facility] CPT-76643 Level 3 Est. Patient 09:53:33 DISTRICT ATTORNEY Edilberto tiwari [facility] CPT-51797 Level 3 Est. Patient 14:42:54 DISTRICT ATTORNEY Abhinav Galvan MD [facility] CPT-33620 Level 3 Est. Patient 15:10:02 CDT Janak MCGILL [facility]-30727 Level 3 Est. Patient 15:20:20 CDT Theo dennis MD [facility] CPT-20260 Level 2 Est. Patient 14:08:57 CDT Kalpesh goins MD [facility] CPT-60346 Level 3 Est. Patient 13:56:19 CDT Abdirahman Rios MD [facility] CPT-30712 Level 3 Est. Patient 13:59:37 CDT Abdirahman Riso MD [facility] CPT-11933 Level 2 Est. Patient 14:44:59 CDT Kalpesh goins MD [facility] CPT-64850 Level 3 Est. Patient 06:06:23 CDT Edilberto tiwari DO [facility] CPT-21222 Level 3 Est. Patient 15:23:54 CDT Abdirahman Rios MD [facility] CPT-91199 Level 3 Est. Patient 15:43:49 CDT Abdirahman Rios MD [facility] CPT-07048 Level 3 Est. Patient 12:46:47 DISTRICT ATTORNEY Abdirahman Rios MD [facility] CPT-40247 Level 3 Est. Patient 08:13:35 DISTRICT ATTORNEY Abdirahman Rios MD [facility] CPT-20146 Level 2 Est. Patient 09:36:42 DISTRICT ATTORNEY Abdirahman Rios MD [facility] CPT-72741 Level 3 Est. Patient 10:56:43 CDT Abdirahman Rios MD [facility] CPT-25362 Level 3 Est. Patient 18:24:52 CDT Abdirahman Rios MD [facility] CPT-04794 Level 3 Est. Patient 13:27:22 CDT Abdirahman Rios MD [facility] Procedures Code Procedure Name Date Entry Date Standard Desc ription CPT-49299 Postop F/U Visit 16:21:51 DISTRICT ATTORNEY CPT-00074 Postop F/U Visit 17:09:41 DISTRICT ATTORNEY CPT-29360 Postop F/U Visit 14:08:43 DISTRICT ATTORNEY CPT-24643 Postop F/U Visit 15:18:16 DISTRICT ATTORNEY CPT-08515 Postop F/U Visit 15:03:49 DISTRICT ATTORNEY CPT-24385 Postop F/U Visit 14:45:23 DISTRICT ATTORNEY CPT-48604 Postop F/U Visit 14:11:03 DISTRICT ATTORNEY CPT-37085 Postop F/U Visit 18:21:21 DISTRICT ATTORNEY CPT-62778 Postop F/U Visit 15:57:12 DISTRICT ATTORNEY CPT-93506 Bladder Instillation 16:58:41 DISTRICT ATTORNEY 6 CPT-83565 Fluzone Quadrivalent Intramuscular Suspe nsion 0.5 ML 15:20:56 DISTRICT ATTORNEY CPT-17953 Immunization Single Admin 15:20:56 DISTRICT ATTORNEY 2014 CPT-64901 Excis pilonidal cyst simple 08:51:34 CDT 20 22/04/20 CPT-39891 Venipuncture Draw Fee 14:27:29 CDT CPT-08099 Postop F/U Visit 15:27:43 CDT CPT-55233 Postop F/U Visit 14:40:59 CDT CPT-31727 Postop F/U Visit 15:02:46 CDT CPT-34761 Postop F/U Visit 11:29:00 DISTRICT ATTORNEY CPT-J0696 Rocephin 1000 mg (Ceftriaxone) 17:22:33 DISTRICT ATTORNEY CPT-13574 Postop F/U Visit 18:41:07 DISTRICT ATTORNEY CPT-45759 Postop F/U Visit 08:19:08 DISTRICT ATTORNEY CPT-41914 Immunization Single Admin 16:41:53 CDT 2013 CPT-54807 Fluzone Quadrivalent Intramuscular Suspe nsion 0.5 ML 16:41:53 CDT CPT-OV Office Visit 16:39:18 CDT CPT-OV Office Visit 16:16:36 CDT CPT-OV Office Visit 15:34:48 CDT CPT-44056 Postop F/U Visit 14:50:12 CDT CPT-96889 Postop F/U Visit 14:41:10 CDT CPT-19525 Venipuncture Draw Fee 11:38:04 DISTRICT ATTORNEY CPT-01076 Postop F/U Visit 19:02:59 DISTRICT ATTORNEY CPT-42685 Postop F/U Visit 12:04:54 DISTRICT ATTORNEY CPT-60228 Administration single or combination vac cine inc oral 15:56:43 CDT CPT-31901 Influenza split virus > age 3 15:56:43 CDT CPT-57289 Hand comp min 3V 14:25:19 CDT CPT-81774 Postop F/U Visit 21:40:51 CDT CPT-30065 Postop F/U Visit 10:58:43 CDT CPT-35040 Administration single or combination vac cine inc oral 12:33:54 DISTRICT ATTORNEY CPT-88444 Influenza Preservative Free split virus >age 3 12:33:54 DISTRICT ATTORNEY CPT-30993 Administration single or combination vac cine inc oral 09:30:51 CDT CPT-24893 Influenza split virus > age 3 09:30:51 CDT CPT-66500 Postop F/U Visit 15:14:53 CDT CPT-67782 Postop F/U Visit 13:50:14 CDT CPT-74180 Postop F/U Visit 13:34:52 CDT CPT-OV Office Visit 16:55:03 CDT CPT-78799 [place] of cervix w bx ECC 13:32:50 CDT 10/19 CPT-J1885 Toradol 60 mg (Ketorolac) 15:31:59 CDT 2011 CPT-J1885 Toradol 60 mg (Ketorolac) 15:23:54 CDT 2011 CPT-40575 Visit 11:34:37 DISTRICT ATTORNEY CPT-41696 Visit 10:52:39 DISTRICT ATTORNEY CPT-59529 Visit 10:12:02 DISTRICT ATTORNEY CPT-49771 Visit 11:22:43 DISTRICT ATTORNEY CPT-25953 Visit 11:24:12 DISTRICT ATTORNEY CPT-71974 Visit 10:47:05 DISTRICT ATTORNEY CPT-OV Office Visit 10:26:16 DISTRICT ATTORNEY CPT-OV Office Visit 15:34:31 DISTRICT ATTORNEY CPT-67713 Visit 10:42:08 DISTRICT ATTORNEY CPT-11773 Visit 10:52:45 DISTRICT ATTORNEY CPT-000 Give Appropriate Flu Vaccine 16:56:41 CDT 2 CPT-65687 Administration single or combination vac cine inc oral 10:33:21 CDT CPT-38681 Influenza split virus > age 3 10:33:21 CDT CPT-47529 Visit 13:23:09 CDT CPT-21351 Visit 18:24:52 CDT CPT-88528 Sono OB comp > 14 weeks 12:07:49 CDT 04/07
--- OUTSIDE RECORDS SUMMARY | 2020-01-18 16:33 | XMS REPORT | Clinical Summary ---
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 Kalpesh oDng MD Pilonidal cyst without mention of abscess [...] Generic Name NDC Status Provider Patient Instruction [id number] 50-325-40 MG ORAL TABS 1 po TID PRN Headaches [id number] Active Abdirahman owen MD Active CHANTIX STARTING MONTH MARGARITA 0.5 MG X 11 & 1 MG X 42 TAB S 0.5mg daily for 3 days, then 0.5mg BID for 4 days, then 1mg BID VARENICL INE TARTRATE 41386514041 Active Abdirahman Rios MD Active AMOXICILLIN 500 MG CAPS 2 po BID x 10 days AMOX ICILLIN 54148214349 No Longer Active Abdirahman Rios MD Active PROMETHAZINE HCL 25 MG TABS 1 four times a day as needed for nausea/vomiting PROMETHAZINE HCL 12906497604 No Longer Active Abdirahman Rios MD Active LC-4 LIDOCAINE 4 % EXT CREA apply q 6 hours, prn 08/03 LIDOCAINE 91319096271 No Longer Active Kalpesh Dong MD Active PERCOCET 10-325 MG TABS 1 tablet every 8 hours as needed for antonia n OXYCODONE-ACETAMINOPHEN 24023210583 No Longer Active Kalpesh Dong MD Active HYDROCODONE-ACETAMINOPHEN 5-325 MG TABS 1 tab by mouth every 6 hours as needed for pain HYDROCODONE-ACETAMINOPHEN 23838450667 No Longer Active Kalpesh Dong MD Active PERCOCET 10-325 MG ORAL TABS 1 every 4 hous as needed OXYCODONE-ACETAMINOPHEN 01583791111 Active Hira Moser APRN Active GLYDO 2 % EXT GEL apply to painful areas as needed LIDOCAINE HCL 59058210938 Active Kalpesh Dong MD Active LC-4 LIDOCAINE 4 % EXT CREA apply to painful area every 12 h ours or as needed LIDOCAINE 57102064770 Active Kalpesh Dong MD Active AUGMENTIN 875-125 MG TAB 1 tab by mouth twice daily with food 20 23/05/16 AMOXICILLIN-POT CLAVULANATE 86120201470 No Longer Active Lizeth hi [employer] 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 FLUTICASONE PROPIONATE 93871288478 No Longer Ac tive Rajni [employer] 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 Active PERCOCET 10-325 MG ORAL TABS take 1 tab by mouth q 4hours as needed for pain OXYCODONE-ACETAMINOPHEN 25926881993 No Longer Active Rajni [employer] 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 Active PERCOCET 10-325 MG ORAL TABS one every 6 hours prn pain OXYCODONE-ACETAMINOPHEN 72632263080 No Longer Active Rajni [employer] 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 Active IBUPROFEN 800 MG TABS 1 tab po tid, with food I BUPROFEN 73879554925 Active Hira Perazal 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 Active DICLOFENAC SODIUM 50 MG TBEC 1 tablet by mouth four times da tom PRN Pain DICLOFENAC SODIUM 58943388477 No Longer Active Rajni [employer] 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 Active VIIBRYD 10 & 20 & 40 MG KIT 1 po qd as directed 07/24 VILAZODONE HCL 84983891893 No Longer Active Rajni [employer] 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 Active ONDANSETRON 4 MG TBDP 1 q4h PRN nausea ONDANSET KELBY 99579421613 No Longer Active Rajni [employer] 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 Active PERCOCET 10-325 MG TABS 1 tablet every 8 hours as needed for antonia n OXYCODONE-ACETAMINOPHEN 47470265297 No Longer Active Rajni [employer] 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 Active HYDROCODONE-ACETAMINOPHEN 5-325 MG TABS 1 po TID PRN Pain 9 HYDROCODONE-ACETAMINOPHEN 09584580785 No Longer Active Abdirahman Rios MD Active [id number] 50-325-40 MG ORAL CAPS 1-2 po TID MS N Headache [id number] 28669882637 No Longer Act krishna Kalpesh Dong MD Active ALPRAZOLAM 0.5 MG TABS 1 po BID PRN Anxiety ALP RAZOLAM 92822716857 No Longer Active Kalpesh Dong MD Active TRAZODONE HCL 100 MG TAB 0.5 to 1 po qHS PRN Insomnia TRAZODONE HCL 37131590639 No Longer Active Kalpesh Dong MD Activ e HYDROCODONE-ACETAMINOPHEN 5-325 MG TABS 1 po q6hr PRN Pain 04/09 HYDROCODONE-ACETAMINOPHEN 15910446716 No Longer Active Kalpesh Dong MD Active CYMBALTA 30 MG CPEP 1 cap by mouth daily DULOXE CLEO HCL 51036316785 No Longer Active Abdirahman Rios MD Active IBUPROFEN 600 MG ORAL TABS 1 by mouth twice a day 2014 IBUPROFEN 60886984903 No Longer Active Abdirahman Rios MD Activ e PERCOCET 5-325 MG TAB 1 tab po q 6 hours, prn severe pain 1 OXYCODONE-ACETAMINOPHEN 43568075222 No Longer Active Abdirahman Rios MD Active SPRINTEC 28 0.25-35 MG-MCG TABS 1 pill by mouth daily for bi rth control NORGESTIMATE-ETH ESTRADIOL 62046161422 No Longer Acti ve Hira Moser 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 Active CYCLOBENZAPRINE HCL 10 MG TABS 1 tablet by mouth three times daily as needed for muscle spasm/pain CYCLOBENZAPRINE HCL 07791864335 No Longer Active Hira Moser 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 Active HYDROCODONE-ACETAMINOPHEN 5-325 MG TABS 1 po q6hr PRN Pain 03/09 HYDROCODONE-ACETAMINOPHEN 23006861046 No Longer Active Hira Peraza l 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 Active AUGMENTIN 500-125 MG ORAL TABS 1 by mouth twice a day AMOXICILLIN-POT CLAVULANATE 77680677075 No Longer Active Hira Perazal 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 Active DICLOFENAC SODIUM 50 MG TBEC 1 tablet by mouth four times da tom PRN Pain DICLOFENAC SODIUM 58908466497 No Longer Active Jilindain a Karmenl 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 Active PROMETHAZINE HCL 25 MG TABS 1 four times a day as needed for nausea/vomiting PROMETHAZINE HCL 59302971959 No Longer Active Abdirahman Rios MD Active HYDROCODONE-ACETAMINOPHEN 5-325 MG TABS 1 tab by mouth every 6 hours as needed PRN Pain HYDROCODONE-ACETAMINOPHEN 54479585855 No Longer Active Abdirahman Rios MD Active GEMFIBROZIL 600 MG TABS 1 po BID GEMFIBROZIL 99057635 005 Active Abdirahman Rios MD Active PERCOCET 5-325 MG ORAL TABS 1 every 6 hours as needed OXYCODONE-ACETAMINOPHEN 11998374264 No Longer Active Abdirahman Rios MD Active PERCOCET 5-325 MG TAB 1 tab po q 6 -8 hours, prn for severe pain OXYCODONE-ACETAMINOPHEN 96110469003 No Longer Active Abdirahman Rios MD Active HYDROCODONE-ACETAMINOPHEN 5-325 MG TABS 1 po q6hr PRN pain 06/30 HYDROCODONE-ACETAMINOPHEN 40415023166 No Longer Active Hira Peraza l 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 Active GLUCOPHAGE 500 MG ORAL TABS one by mouth 3 times a day METFORMIN HCL 42252556812 No Longer Active Hira Moser 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 Ac tive PERCOCET 10-325 MG TABS 1 tab by mouth every 6 hours , use sparingly for severe pain OXYCODONE-ACETAMINOPHEN 84226924912 No Longer A ctive Abdirahman Rios MD Active EMLA 2.5-2.5 % EXT CREA apply to skin lesion q 6 hours, prn 2014 LIDOCAINE-PRILOCAINE 15916193477 No Longer Active Abdirahman Rios MD Active PERCOCET 10-325 MG ORAL TABS 1 every 4 hours as needed OXYCODONE-ACETAMINOPHEN 03272810983 No Longer Active Abdirahman Rios MD Active AUGMENTIN 875-125 MG TAB 1 tab by mouth twice daily with food 20 21/10/13 AMOXICILLIN-POT CLAVULANATE 74400507491 No Longer Active Ursula jasmina Frazell 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 Active PROAIR HFA 108 (90 BASE) MCG/ACT AERS 2 puff q 4-6 hrs PRN 01/24 ALBUTEROL SULFATE 74052954896 No Longer Active Kalpesh Dong MD Active PREDNISONE 20 MG TAB 2 tabs daily for 3 days, 1 t ab daily for 3 days, 1/2 tab daily for 2 days PREDNISONE 53194440150 No Longer Active Abdirahman Rios MD Active KEFLEX 500 MG CAP 1 po qid CEPHALEXIN 313043268 20 No Longer Active Kalpesh Dong MD Active PERCOCET 5-325 MG TAB 1 every 6 hours as needed OXYCODONE-ACETAMINOPHEN 61756714211 No Longer Active Shola MCGILL Active LC-5 LIDOCAINE 5 % CREA apply 1 time daily to affected area 2013 LIDOCAINE (ANORECTAL) 82576600683 No Longer Active Hira F radhaell 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 Active HYDROCODONE-ACETAMINOPHEN 10-325 MG TABS 1 by mouth ev chaka 8 hours as needed for pain HYDROCODONE-ACETAMINOPHEN 06676180168 No Longer Active Jillina Frazell 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 Active LORATADINE 10 MG TABS 1 tablet by mouth daily L ORATADINE 59182299333 No Longer Active Jillina Frazell 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 Active DIFLUCAN 150 MG TAB 1 qODay x 2 doses FLUCONAZO LE 83736181075 No Longer Active Jillina Frazell 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 Active CYCLOBENZAPRINE HCL 10 MG TABS 1/2 - 1 tab PO tid PRN back p ain, muscle spasm CYCLOBENZAPRINE HCL 65522502605 No Longer Active Karen Moser APRN Active AUGMENTIN 875-125 MG TAB 1 tab by mouth twice daily with food 20 22/05/07 AMOXICILLIN-POT CLAVULANATE 14231994374 No Longer Active Loida Rios MD Active MOBIC 15 MG TABS 1 tab daily MELOXICAM 902123546 14 No Longer Active Abdirahman Rios MD Active PERCOCET 7.5-325 MG TABS 1 PO tid PRN pain OXYCODONE-ACETAMINOPHEN 08311303641 No Longer Active Abdirahman Rios MD Active LIDODERM 5 % PTCH One patch to painful area MS N. On for 12 hrs, off for 12 hrs. LIDOCAINE 68079573245 No Longer Active Abdirahman Rios MD Active PERCOCET 7.5-325 MG TABS 1 PO q 8 hrs PRN pain OXYCODONE-ACETAMINOPHEN 09879068442 No Longer Active Shola MCGILL Active HYDROCODONE-ACETAMINOPHEN 7.5-325 MG TABS 1 by mouth e very 6 hours as needed for pain HYDROCODONE-ACETAMINOPHEN 24717348625 No Longer Active Good Julian MD Active CLINDAMYCIN HCL 300 MG CAPS 1 po QID x 7 days CLINDAMYCIN HCL 22373455404 No Longer Active Abdirahman Rios MD Activ e BACTRIM DS 800-160 MG TABS 1 po BID x 7 days 5 SULFAMETHOXAZOLE-TRIMETHOPRIM 09699818898 No Longer Active Abdirahman Rios MD Active ENDOCET 10-325 MG TABS 1 q 6 hr prn OXYCODONE-ACETAMINOPHEN 10974764028 No Longer Active Abdirahman Rios MD Active IBUPROFEN 800 MG TABS 1 tid prn IBUPROFEN 669269 67333 No Longer Active Abdirahman Rios MD Active BACTRIM DS 800-160 MG TABS by mouth twice a day 11/05 SULFAMETHOXAZOLE-TRIMETHOPRIM 12558419892 No Longer Active Good Julian MD Active HYDROCODONE-ACETAMINOPHEN 7.5-325 MG TABS 1 four times a day as needed for pain HYDROCODONE-ACETAMINOPHEN 61808760089 No Longer Activ e Good Julian MD Active KEFLEX 500 MG CAP 1 tab po tid CEPHALEXIN 703693 60551 No Longer Active Hira Moser APRN Active IBUPROFEN 800 MG TAB 1 pill three times daily as needed for pain IBUPROFEN 06699051655 No Longer Active Kalpesh Dong MD Active PROMETHAZINE-CODEINE 6.25-10 MG/5ML SYRP 1 tsp every 6 hrs prn c ough PROMETHAZINE-CODEINE 01791059007 No Longer Active Kalpesh Carr Active HYDROCODONE-ACETAMINOPHEN 5-325 MG TABS 1 tab by mouth every 6 hours as needed HYDROCODONE-ACETAMINOPHEN 65445702007 No Longer Activ e Shola MCGILL Active CEPHALEXIN 500 MG CAPS 1 PO bid x 7 days CEPHAL EXIN 65885735749 No Longer Active Shola MCGILL Active BACTRIM DS 800-160 MG TAB 1 tab by mouth twice daily 2 TRIMETHOPRIM-SULFAMETHOXAZOLE 16832082176 No Longer Active Kalpesh Dong MD Active HYDROCODONE-ACETAMINOPHEN 5-325 MG TABS 1 PO tid PRN pain 5 HYDROCODONE-ACETAMINOPHEN 28828558382 No Longer Active Abhinav Galvan MD Active IMPLANON 68 MG IMPL IMPLANTED IN LEFT ARM ETONO GESTREL 63654756113 No Longer Active Hira Moser APRN Active AMOXICILLIN 500 MG TABS 2 tabs PO bid x 10 d AM OXICILLIN 55824380882 No Longer Active Kalpesh Dong MD Active LEVAQUIN 500 MG TABS 1 PO q day x 7 days LEVOFL OXACIN 18316931151 No Longer Active Shola MCGILL Active AMITRIPTYLINE HCL 25 MG TAB 1 tab by mouth daily 60 minutes before bedtime AMITRIPTYLINE HCL 68640791082 No Longer Active Shola MCGILL Active LORTAB 5 5-500 MG TABS 1/2 to 1 tablet by mouth go ry 6 hours as needed for pain HYDROCODONE-ACETAMINOPHEN 08750453326 No Longer Active Shola MCGILL Active CEPHALEXIN 500 MG TABS Take one by mouth four times daily, morning, noon, early evening and bedtime. CEPHALEXIN 67101306217 No Long er Active Hira Moser APRN Active TYLENOL/CODEINE #3 300-30 MG TAB 1-2 po q6hr PRN Pain ACETAMINOPHEN-CODEINE 38303604826 No Longer Active Edilbetro Marino DO Active PRISTIQ 50 MG [id number] 1 po qd DESVENLAFAXI NE SUCCINATE 72435975294 No Longer Active Edilberto Marino DO Active PENICILLIN V POTASSIUM 500 MG TAB 1 four times a day 2 PENICILLIN V POTASSIUM 22366591901 No Longer Active Edilberto Marino DO Active DOXYCYCLINE HYCLATE 100 MG CAPS Take one (1) tablet by mouth twice a day DOXYCYCLINE HYCLATE 34354378799 No Longer Active Ronnie Galvan MD Active HYDROCODONE-ACETAMINOPHEN 5-325 MG TABS 1 po q 6hr PRN Pain 2011 HYDROCODONE-ACETAMINOPHEN 57537545240 No Longer Active Patri joan Perez RN Active BACTRIM DS 800-160 MG TAB 1 tab by mouth twice daily 2 TRIMETHOPRIM-SULFAMETHOXAZOLE 28452555353 No Longer Active Kalpesh Dong MD Active LORTAB 5 5-500 MG TABS 1/2 to 1 tablet by mouth go ry 4 hours as needed for pain HYDROCODONE-ACETAMINOPHEN 75485732333 No Longer Active Kalpesh Dong MD Active GENERESS FE 0.8-25 MG-MCG CHEW Take one by mouth daily NORETHIN-ETH ESTRADIOL-FE 18262322983 No Longer Active Kalpesh Dong MD Active HYDROCODONE-ACETAMINOPHEN 7.5-500 MG TABS 1-2 every 4 hours as needed HYDROCODONE-ACETAMINOPHEN 51694705816 No Longer Activ e Kalpesh Dong MD Active FERROUS SULFATE 325 (65 FE) MG TABS 1 tablet by mouth twice yung y FERROUS SULFATE 59191061529 No Longer Active Kalpesh Dong MD Active IBUPROFEN 600 MG TAB 1 po q6-8hr PRN IBUPROFEN 07299954192 No Longer Active Kalpesh Dong MD Active SPIRONOLACTONE 25 MG TAB 1 tablet by mouth daily 01/22 SPIRONOLACTONE 21400969642 No Longer Active Kalpesh Dong MD Acti ve HYDROCODONE-ACETAMINOPHEN 7.5-325 MG TABS 1 po QID PRN Pain 2011 HYDROCODONE-ACETAMINOPHEN 61447104511 No Longer Active Kalpesh Dong MD Active CLINDAMYCIN HCL 300 MG CAPS 1 po q6hr x 7 days CLINDAMYCIN HCL 96087481068 No Longer Active Edilberto Marino DO Active PREDNISONE 20 MG TAB 2 tabs daily for 4 days, 1 t ab daily for 4 days, 1/2 tab daily for 4 days PREDNISONE 55922595283 No Longer Active Edilberto Marino DO Active PERCOCET 5-325 MG TABS 1 tablet by mouth every 6 hours as ne eded for pain OXYCODONE-ACETAMINOPHEN 47811123415 No Longer Active Abdirahman Rios MD Active VITAMINS TABS Take one by mouth daily MV & MIN W/FE-FA TABS 94515240581 No Longer Active Abdirahman Rios MD Active LUIS 3-0.02 MG TABS 1 tablet by mouth daily as directed DROSPIRENONE-ETHINYL ESTRADIOL 14036714914 No Longer Active Abdirahman Rios MD Active LORATADINE 10 MG TABS 1 tablet by mouth daily L ORATADINE 47711754791 No Longer Active Kalpesh Dong MD Active HYDROCODONE-ACETAMINOPHEN 5-325 MG TABS 1 po q 6hr PRN Pain 2010 HYDROCODONE-ACETAMINOPHEN 05813287969 No Longer Active Edilberto Marino DO Active BACTRIM DS 800-160 MG TAB 1 tab by mouth twice daily 2 TRIMETHOPRIM-SULFAMETHOXAZOLE 71172185741 No Longer Active Abdirahman Rios MD Active 28-0.8 MG TABS Take one by mouth daily 09/20 VIT-FE FUMARATE-FA 99332892010 No Longer Active Abdirahman Rios MD Active CIPRO 500 MG TAB 1 tablet by mouth twice daily CIPROFLOXACIN HCL 02967628954 No Longer Active Abdirahman Rios MD Active BENADRYL 25 MG CAP 1 po q8hr PRN Congestion DIPHENHYDRAMINE HCL 61887123210 No Longer Active Abdirahman Rios MD Active ZOLOFT 50 MG TAB 1 po qd SERTRALINE HCL 828340 71178 No Longer Active Abdirahman Rios MD Active AMOXICILLIN 875 MG TABS 1 tab by mouth twice daily 201 08/09/13 AMOXICILLIN 18425314885 No Longer Active Abdirahman Rios MD Activ e AMOXICILLIN 875 MG TABS 1 tab by mouth twice daily 201 07/19/27 AMOXICILLIN 48355762268 No Longer Active Abdirahman Rios MD Activ e BACTRIM DS 800-160 MG TAB 2 tab by mouth twice daily 2 TRIMETHOPRIM-SULFAMETHOXAZOLE 32840585234 No Longer Active Abdirahman Rios MD Active KEFLEX 500 MG CAP 1 po tid x 10 days CEPHALEXIN 68631340301 No Longer Active Abdirahman Rios MD Active AMOXICILLIN 875 MG TABS 1 tab by mouth twice daily 201 07/18/07 AMOXICILLIN 00582069275 No Longer Active Abdirahman Rios MD Activ e BACTRIM DS 800-160 MG TAB 2 tab by mouth twice daily 2 BACTRIM DS 800-160 MG TAB 238687 TRIMETHOPRIM-SULFAMETHOXAZOLE Inactive ZOLOFT 50 MG TAB 1 po qd ZOLOFT 50 MG TAB 3129 41 SERTRALINE HCL Inactive BENADRYL 25 MG CAP 1 po q8hr PRN Congestion BENADRYL 25 MG CAP [id number] DIPHENHYDRAMINE HCL Inactive 28-0.8 MG TABS Take one by mouth daily 09/20 28-0.8 MG TABS VIT-FE FUMARATE-FA Inactive HYDROCODONE-ACETAMINOPHEN 5-325 MG TABS 1 po q 6hr PRN Pain 2010 HYDROCODONE-ACETAMINOPHEN 5-325 MG TABS 588964 HYDROCODONE-ACETAMINOPHEN Inactive LORATADINE 10 MG TABS 1 tablet by mouth daily LORATADINE 10 MG TABS 721576 LORATADINE Inactive LUIS 3-0.02 MG TABS 1 tablet by mouth daily as directed LUIS 3-0.02 MG TABS 810759 DROSPIRENONE-ETHINYL ESTRADIOL Inactive VITAMINS TABS Take one by mouth daily VITAMINS TABS MV & MIN W/FE-FA TABS Inactive PERCOCET 5-325 MG TABS 1 tablet by mouth every 6 hours as ne eded for pain PERCOCET 5-325 MG TABS 7455473 OXYCODONE-ACETAMIN OPHEN Inactive PREDNISONE 20 MG TAB 2 tabs daily for 4 days, 1 t ab daily for 4 days, 1/2 tab daily for 4 days PREDNISONE 20 MG TAB 925572 PREDNISON E Inactive CLINDAMYCIN HCL 300 MG CAPS 1 po q6hr x 7 days CLINDAMYCIN HCL 300 MG CAPS 121687 CLINDAMYCIN HCL Inactive HYDROCODONE-ACETAMINOPHEN 7.5-325 MG TABS 1 po QID PRN Pain 2011 HYDROCODONE-ACETAMINOPHEN 7.5-325 MG TABS 496301 HYDROCODONE-ACETAMINOPHEN Inactive SPIRONOLACTONE 25 MG TAB 1 tablet by mouth daily 01/22 SPIRONOLACTONE 25 MG TAB 655706 SPIRONOLACTONE Inactive IBUPROFEN 600 MG TAB 1 po q6-8hr PRN IBUPROFEN 600 MG TAB 986897 IBUPROFEN Inactive FERROUS SULFATE 325 (65 FE) MG TABS 1 tablet by mouth twice yung y FERROUS SULFATE 325 (65 FE) MG TABS 660770 FERROUS SULF ATE Inactive HYDROCODONE-ACETAMINOPHEN 7.5-500 MG TABS 1-2 every 4 hours as needed HYDROCODONE-ACETAMINOPHEN 7.5-500 MG TABS HYDROCODONE-ACETAMINOPHEN Inactive GENERESS FE 0.8-25 MG-MCG CHEW Take one by mouth daily GENERESS FE 0.8-25 MG-MCG CHEW [id number] NORETHIN-ETH ESTRADIOL-FE Inactive LORTAB 5 5-500 MG TABS 1/2 to 1 tablet by mouth go ry 4 hours as needed for pain LORTAB 5 5-500 MG TABS HYDROCODONE-A CETAMINOPHEN Inactive BACTRIM DS 800-160 MG TAB 1 tab by mouth twice daily 2 BACTRIM DS 800-160 MG TAB 166473 TRIMETHOPRIM-SULFAMETHOXAZOLE Inac tive HYDROCODONE-ACETAMINOPHEN 5-325 MG TABS 1 po q 6hr PRN Pain 2011 HYDROCODONE-ACETAMINOPHEN 5-325 MG TABS 655501 HYDROCODONE-ACETAMINOPHEN Inactive DOXYCYCLINE HYCLATE 100 MG CAPS Take one (1) tablet by mouth twice a day DOXYCYCLINE HYCLATE 100 MG CAPS [id number] DOXYCYCLINE HYCLATE Inactive PENICILLIN V POTASSIUM 500 MG TAB 1 four times a day 2 PENICILLIN V POTASSIUM 500 MG TAB 578075 PENICILLIN V POTASSIUM Siri ctive PRISTIQ 50 MG [id number] 1 po qd PRISTIQ 50 MG [id number] DESVENLAFAXINE SUCCINATE Inactive TYLENOL/CODEINE #3 300-30 MG TAB 1-2 po q6hr PRN Pain TYLENOL/CODEINE #3 300-30 MG TAB 550677 ACETAMINOPHEN-CODEINE Inact krishna CEPHALEXIN 500 MG TABS Take one by mouth four times daily, morning, noon, early evening and bedtime. CEPHALEXIN 500 MG TABS 720600 CEPHALEXIN Inactive LORTAB 5 5-500 MG TABS 1/2 to 1 tablet by mouth go ry 6 hours as needed for pain LORTAB 5 5-500 MG TABS HYDROCODONE-A CETAMINOPHEN Inactive AMITRIPTYLINE HCL 25 MG TAB 1 tab by mouth daily 60 minutes before bedtime AMITRIPTYLINE HCL 25 MG TAB 316554 AMITRIPTYLINE HCL Inactive AMOXICILLIN 500 MG TABS 2 tabs PO bid x 10 d 7 AMOXICILLIN 500 MG TABS 784177 AMOXICILLIN Inactive IMPLANON 68 MG IMPL IMPLANTED IN LEFT ARM IMPLANON 68 MG IMPL ETONOGESTREL Inactive HYDROCODONE-ACETAMINOPHEN 5-325 MG TABS 1 PO tid PRN pain 5 HYDROCODONE-ACETAMINOPHEN 5-325 MG TABS 740628 HYDROCODONE-ACETAMIN OPHEN Inactive BACTRIM DS 800-160 MG TAB 1 tab by mouth twice daily 2 BACTRIM DS 800-160 MG TAB 951642 TRIMETHOPRIM-SULFAMETHOXAZOLE Inac tive CEPHALEXIN 500 MG CAPS 1 PO bid x 7 days CEPHALEXIN 500 MG CAPS 184592 CEPHALEXIN Inactive HYDROCODONE-ACETAMINOPHEN 5-325 MG TABS 1 tab by mouth every 6 hours as needed HYDROCODONE-ACETAMINOPHEN 5-325 MG TABS 801172 HYDROCODONE-ACETAMINOPHEN Inactive PROMETHAZINE-CODEINE 6.25-10 MG/5ML SYRP 1 tsp every 6 hrs prn c ough PROMETHAZINE-CODEINE 6.25-10 MG/5ML SYRP 503982 PROMETH AZINE-CODEINE Inactive IBUPROFEN 800 MG TAB 1 pill three times daily as needed for pain IBUPROFEN 800 MG TAB IBUPROFEN Inactive KEFLEX 500 MG CAP 1 tab po tid KEFLEX 500 MG CAP 977008 CEPHALEXIN Inactive HYDROCODONE-ACETAMINOPHEN 7.5-325 MG TABS 1 four times a day as needed for pain HYDROCODONE-ACETAMINOPHEN 7.5-325 MG TABS 483841 HYDROCODONE-ACETAMINOPHEN Inactive BACTRIM DS 800-160 MG TABS by mouth twice a day 11/05 BACTRIM DS 800-160 MG TABS 096171 SULFAMETHOXAZOLE-TRIMETHOPRIM Inactive IBUPROFEN 800 MG TABS 1 tid prn IBUPROFEN 800 MG TABS 550492 IBUPROFEN Inactive ENDOCET 10-325 MG TABS 1 q 6 hr prn ENDOC ET 10-325 MG TABS 1373571 OXYCODONE-ACETAMINOPHEN Inactive HYDROCODONE-ACETAMINOPHEN 7.5-325 MG TABS 1 by mouth e very 6 hours as needed for pain HYDROCODONE-ACETAMINOPHEN 7.5-325 MG TABS 065948 HYDROCODONE-ACETAMINOPHEN Inactive PERCOCET 7.5-325 MG TABS 1 PO q 8 hrs PRN pain PERCOCET 7.5-325 MG TABS 2896652 OXYCODONE-ACETAMINOPHEN Inactive LIDODERM 5 % PTCH One patch to painful area MS N. On for 12 hrs, off for 12 hrs. LIDODERM 5 % PTCH 6054625 LIDOCAINE Inactiv e PERCOCET 7.5-325 MG TABS 1 PO tid PRN pain PERCOCET 7.5- 325 MG TABS 0396318 OXYCODONE-ACETAMINOPHEN Inactive MOBIC 15 MG TABS 1 tab daily MOBIC 15 MG TABS 15 2695 MELOXICAM Inactive CYCLOBENZAPRINE HCL 10 MG TABS 1/2 - 1 tab PO tid PRN back p ain, muscle spasm CYCLOBENZAPRINE HCL 10 MG TABS 856970 CYCLOBENZA JOSEPH HCL Inactive LORATADINE 10 MG TABS 1 tablet by mouth daily LORATADINE 10 MG TABS 739343 LORATADINE Inactive HYDROCODONE-ACETAMINOPHEN 10-325 MG TABS 1 by mouth ev chaka 8 hours as needed for pain HYDROCODONE-ACETAMINOPHEN 10-325 MG TABS 266538 HYDROCODONE-ACETAMINOPHEN Inactive LC-5 LIDOCAINE 5 % CREA apply 1 time daily to affected area 2013 LC-5 LIDOCAINE 5 % CREA 7302571 LIDOCAINE (ANORECTAL) In active PERCOCET 5-325 MG TAB 1 every 6 hours as needed PERCOCET 5-325 MG TAB 6050952 OXYCODONE-ACETAMINOPHEN Inactive KEFLEX 500 MG CAP 1 po qid KEFLEX 500 MG CAP 30 9114 CEPHALEXIN Inactive PROAIR HFA 108 (90 BASE) MCG/ACT AERS 2 puff q 4-6 hrs PRN 01/24 PROAIR HFA 108 (90 BASE) MCG/ACT AERS ALBUTEROL SULFATE Inactive PERCOCET 10-325 MG ORAL TABS 1 every 4 hours as needed PERCOCET 10-325 MG ORAL TABS 7286394 OXYCODONE-ACETAMINOPHEN Inactiv e EMLA 2.5-2.5 % EXT CREA apply to skin lesion q 6 hours, prn 2014 EMLA 2.5-2.5 % EXT CREA 233617 LIDOCAINE-PRILOCAINE Mcloud ctive PERCOCET 10-325 MG TABS 1 tab by mouth every 6 hours , use sparingly for severe pain PERCOCET 10-325 MG TABS 6071856 OXYCODONE-ACETAMINOPHEN Inactive GLUCOPHAGE 500 MG ORAL TABS one by mouth 3 times a day GLUCOPHAGE 500 MG ORAL TABS 129660 METFORMIN HCL Inactive HYDROCODONE-ACETAMINOPHEN 5-325 MG TABS 1 po q6hr PRN pain 06/30 HYDROCODONE-ACETAMINOPHEN 5-325 MG TABS 251632 HYDROCOD ONE-ACETAMINOPHEN Inactive PERCOCET 5-325 MG TAB 1 tab po q 6 -8 hours, prn for severe pain PERCOCET 5-325 MG TAB [id number] OXYCODONE-ACETAMINOPHEN In active PERCOCET 5-325 MG ORAL TABS 1 every 6 hours as needed PERCOCET 5-325 MG ORAL TABS [id number] OXYCODONE-ACETAMINOPHEN Inactive DICLOFENAC SODIUM 50 MG TBEC 1 tablet by mouth four times da tom PRN Pain DICLOFENAC SODIUM 50 MG TBEC [id number] DICLOFENAC S ODIUM Inactive AUGMENTIN 500-125 MG ORAL TABS 1 by mouth twice a day AUGMENTIN 500-125 MG ORAL TABS [id number] AMOXICILLIN-POT CLAVULANATE I nactive HYDROCODONE-ACETAMINOPHEN 5-325 MG TABS 1 po q6hr PRN Pain 03/09 HYDROCODONE-ACETAMINOPHEN 5-325 MG TABS [id number] HYDROCOD ONE-ACETAMINOPHEN Inactive CYCLOBENZAPRINE HCL 10 MG TABS 1 tablet by mouth three times daily as needed for muscle spasm/pain CYCLOBENZAPRINE HCL 10 MG TABS [id number] CYCLOBENZAPRINE HCL Inactive SPRINTEC 28 0.25-35 MG-MCG TABS 1 pill by mouth daily for bi rth control SPRINTEC 28 0.25-35 MG-MCG TABS [id number] NORGESTIMATE-ETH ESTRADIOL Inactive PERCOCET 5-325 MG TAB 1 tab po q 6 hours, prn severe pain PERCOCET 5-325 MG TAB [id number] OXYCODONE-ACETAMINOPHEN Inactive IBUPROFEN 600 MG ORAL TABS 1 by mouth twice a day 2014 IBUPROFEN 600 MG ORAL TABS [id number] IBUPROFEN Inactive CYMBALTA 30 MG CPEP 1 cap by mouth daily CYMBALTA 30 MG CPEP [id number] DULOXETINE HCL Inactive HYDROCODONE-ACETAMINOPHEN 5-325 MG TABS 1 po q6hr PRN Pain 04/09 HYDROCODONE-ACETAMINOPHEN 5-325 MG TABS [id number] HYDROCOD ONE-ACETAMINOPHEN Inactive TRAZODONE HCL 100 MG TAB 0.5 to 1 po qHS PRN Insomnia TRAZODONE HCL 100 MG TAB [id number] TRAZODONE HCL Inactive ALPRAZOLAM 0.5 MG TABS 1 po BID PRN Anxiety ALPRAZOLAM 0.5 MG TABS 127801 ALPRAZOLAM Inactive [id number] 50-325-40 MG ORAL CAPS 1-2 po TID MS N Headache [id number] 50-325-40 MG ORAL CAPS 2 [id number] Inactive HYDROCODONE-ACETAMINOPHEN 5-325 MG TABS 1 po TID PRN Pain 9 HYDROCODONE-ACETAMINOPHEN 5-325 MG TABS [id number] HYDROCODONE-ACETAMIN OPHEN Inactive PERCOCET 10-325 MG TABS 1 tablet every 8 hours as needed for antonia n PERCOCET 10-325 MG TABS [id number] OXYCODONE-ACETAMINOPHEN Inactive ONDANSETRON 4 MG TBDP 1 q4h PRN nausea ON DANSETRON 4 MG TBDP [id number] ONDANSETRON Inactive VIIBRYD 10 & 20 & 40 MG KIT 1 po qd as directed 07/24 VIIBRYD 10 & 20 & 40 MG KIT VILAZODONE HCL Inactive DICLOFENAC SODIUM 50 MG TBEC 1 tablet by mouth four times da tom PRN Pain DICLOFENAC SODIUM 50 MG TBEC 248461 DICLOFENAC S ODIUM Inactive PERCOCET 10-325 MG ORAL TABS one every 6 hours prn pain PERCOCET 10-325 MG ORAL TABS [id number] OXYCODONE-ACETAMINOPHEN Inactiv e PERCOCET 10-325 MG ORAL TABS take 1 tab by mouth q 4hours as needed for pain PERCOCET 10-325 MG ORAL TABS [id number] OXYCODONE-ACETAMINOPHEN Inactive FLONASE ALLERGY RELIEF 50 MCG/ACT NASAL SUSP One spray in each nostril twice a day. FLONASE ALLERGY RELIEF 50 MCG/ACT NASAL S [facility] [id number] FLUTICASONE PROPIONATE Inactive AUGMENTIN 875-125 MG TAB 1 tab by mouth twice daily with food 20 23/05/16 AUGMENTIN 875-125 MG TAB [id number] AMOXICILLIN-POT [place] Inactive HYDROCODONE-ACETAMINOPHEN 5-325 MG TABS 1 tab by mouth every 6 hours as needed for pain HYDROCODONE-ACETAMINOPHEN 5-325 MG TABS 8 60107 HYDROCODONE-ACETAMINOPHEN Inactive PERCOCET 10-325 MG TABS 1 tablet every 8 hours as needed for antonia n PERCOCET 10-325 MG TABS [id number] OXYCODONE-ACETAMINOPHEN Inactive LC-4 LIDOCAINE 4 % EXT CREA apply q 6 hours, prn 08/03 LC-4 LIDOCAINE 4 % EXT CREA [id number] LIDOCAINE Inactive PROMETHAZINE HCL 25 MG TABS 1 four times a day as needed for nausea/vomiting PROMETHAZINE HCL 25 MG TABS 672780 PROMETHAZINE HCL Inactive AMOXICILLIN 875 MG TABS 1 tab by mouth twice daily 201 07/18/07 AMOXICILLIN 875 MG TABS 054620 AMOXICILLIN Inactive KEFLEX 500 MG CAP 1 po tid x 10 days KEFLEX 500 MG CAP 716581 CEPHALEXIN Inactive AMOXICILLIN 875 MG TABS 1 tab by mouth twice daily 201 07/19/27 AMOXICILLIN 875 MG TABS 053086 AMOXICILLIN Inactive AMOXICILLIN 875 MG TABS 1 tab by mouth twice daily 201 08/09/13 AMOXICILLIN 875 MG TABS 688296 AMOXICILLIN Inactive CIPRO 500 MG TAB 1 tablet by mouth twice daily CIPRO 500 MG TAB 437673 CIPROFLOXACIN HCL Inactive BACTRIM DS 800-160 MG TAB 1 tab by mouth twice daily 2 BACTRIM DS 800-160 MG TAB 539457 TRIMETHOPRIM-SULFAMETHOXAZOLE Inac tive LEVAQUIN 500 MG TABS 1 PO q day x 7 days LEVAQUIN 500 MG TABS 790236 LEVOFLOXACIN Inactive CLINDAMYCIN HCL 300 MG CAPS 1 po QID x 7 days CLINDAMYCIN HCL 300 MG CAPS 200767 CLINDAMYCIN HCL Inactive AUGMENTIN 875-125 MG TAB 1 tab by mouth twice daily with food 20 22/05/07 AUGMENTIN 875-125 MG TAB 326281 AMOXICILLIN-POT [place] Inactive DIFLUCAN 150 MG TAB 1 qODay x 2 doses DIFLUCAN 150 MG TAB 957570 FLUCONAZOLE Inactive PREDNISONE 20 MG TAB 2 tabs daily for 3 days, 1 t ab daily for 3 days, 1/2 tab daily for 2 days PREDNISONE 20 MG TAB 372907 PREDNISON E Inactive AUGMENTIN 875-125 MG TAB 1 tab by mouth twice daily with food 20 21/10/13 AUGMENTIN 875-125 MG TAB 487015 AMOXICILLIN-POT [place] Inactive HYDROCODONE-ACETAMINOPHEN 5-325 MG TABS 1 tab by mouth every 6 hours as needed PRN Pain HYDROCODONE-ACETAMINOPHEN 5-325 MG TABS 8 67122 HYDROCODONE-ACETAMINOPHEN Inactive PROMETHAZINE HCL 25 MG TABS 1 four times a day as needed for nausea/vomiting PROMETHAZINE HCL 25 MG TABS 081621 PROMETHAZINE HCL Inactive AMOXICILLIN 500 MG CAPS 2 po BID x 10 days AMOXICILLIN 500 MG CAPS 446458 AMOXICILLIN Inactive Advance Directives Directive Description Start Date PERMISSION TO SHARE Immunizations Vaccine Administration Date Value Standard Alf cription Seasonal influenza vaccine, injectable, containing preservative, for > 3 years old (Afluria, FluLaval, Fluzone, Fluvirin, Fluarix, Agriflu(>= 18 yo)) Fluzone (>3 yrs.) [[id number]] Influenza, seasonal, inject able Seasonal influenza vaccine, injectable, preservative free, for > 3 years old (Afluria, FluLaval, Fluzone, Fluvirin, Fluarix, Agriflu(>= 18 yo)) Fluzone preservative free (>3 yrs.) [[id number]] Influenza, seasonal, injectable, preservative free Seasonal influenza vaccine, injectable, containing preservative, for > 3 years old (Afluria, FluLaval, Fluzone, Fluvirin, Fluarix, Agriflu(>= 18 yo)) Fluzone (>3 yrs.) [[id number]] Influenza, seasonal, inject able Seasonal influenza vaccine, injectable, containing preservative, for > 3 years old (Afluria, FluLaval, Fluzone, Fluvirin, Fluarix, Agriflu(>= 18 yo)) Fluzone (>3 yrs.) [[id number]] Influenza, seasonal, inject able dT (Diphtheria and [...] Panel - Chemistry sodium, serum 142 mmol/L 455-404 3321/05/12 potassium, serum 4.8 mmol/L 3.5-5.2 chloride, serum [...] ... - Chemistry sodium, serum 137 mmol/L 182-639 4862/02/24 carbon dioxide, venous blood 26.3 mmol/L 21.0-32 [...] Panel - Chemistry cholesterol, serum 181 mg/dL 179-784 8153/09/01 triglyceride, serum, fasting 341 mg/dL 30-200 HDL cholesterol, serum 22 mg/dL 32-96 LDL cholesterol, serum 91 mg/dL 0-130 cholesterol, serum 165 mg/dL 095-548 8029/05/12 triglyceride, serum, fasting 524 mg/dL 30-200 HDL [...] negative Encounters Code Encounter Date Provider Facility CPT-52023 Level 4 Est. Patient 16:38:26 [employer]OPELLANT CHARGE LOADER Abdirahman Rios MD [facility] CPT-10470 Level 3 Est. Patient 05:31:41 [employer]OPELLANT CHARGE LOADER Kalpesh goins MD [facility] CPT-32906 Level 3 Est. Patient 11:22:02 PROPELLANT CHARGE LOADER Hira muniz [facility] CPT-90376 Level 3 Est. Patient 21:00:18 PROPELLANT CHARGE LOADER Rajni danielson [facility] CPT-83020 Level 3 Est. Patient 14:15:00 [employer]OPELLANT CHARGE LOADER Kalpesh goins MD [facility] CPT-86962 Level 2 Est. Patient 19:57:52 PROPELLANT CHARGE LOADER Rajni danielson [facility] CPT-59847 Level 3 Est. Patient 16:58:40 PROPELLANT CHARGE LOADER Bj funes MD [facility] CPT-63890 Level 3 Est. Patient 08:51:33 CDT Kalpesh goins MD [facility] CPT-09846 Level 4 Est. Patient 14:14:53 CDT Abdirahman Rios MD [facility] CPT-69666 Level 3 Est. Patient 15:47:40 CDT Kalpesh goins MD [facility]-08780 Level 3 Est. Patient 10:57:26 CDT Abdirahman Rios MD [facility] CPT-53653 Level 3 Est. Patient 14:29:53 CDT Abhinav Galvan MD [facility] CPT-74937 Level 2 Est. Patient 16:33:01 CDT Kalpesh goins MD [facility] CPT-71084 Level 4 Est. Patient 16:44:56 CDT Abdirahman Rios MD [facility]-74261 Level 2 Est. Patient 07:49:32 CDT Kalpesh goins MD [facility] CPT-16630 Level 3 New Patient 15:47:11 [employer]OPELLANT CHARGE LOADER Bj huber MD [facility]-05082 Level 4 Est. Patient 14:37:38 PROPELLANT CHARGE LOADER Abdirahman Rios MD [facility] CPT-79385 Level 2 Est. Patient 13:32:17 PROPELLANT CHARGE LOADER Kalpesh goins MD [facility]-79874 Level 3 Est. Patient 17:32:57 PROPELLANT CHARGE LOADER Edilberto tiwari [facility] CPT-11516 Level 3 Est. Patient 17:22:33 PROPELLANT CHARGE LOADER Edilberto tiwari [facility] CPT-89785 Level 2 Est. Patient 16:57:09 PROPELLANT CHARGE LOADER Kalpesh goins MD [facility]-62148 Level 3 Est. Patient 14:03:08 PROPELLANT CHARGE LOADER Abdirahman Rios MD [facility]-01172 Level 3 Est. Patient 18:12:34 CDT Shola Wright [facility] CPT-80256 Level 3 Est. Patient 19:34:46 CDT Shola W Cloven [facility] CPT-18602 Level 3 Est. Patient 14:19:37 CDT Abdirahman Rios MD [facility] CPT-20628 Level 3 Est. Patient 14:11:58 CDT Kalpesh goins MD [facility] CPT-57886 Level 3 Est. Patient 16:50:00 CDT Michelle trimble ROGELIO [facility] CPT-69343 Level 3 Est. Patient 17:11:32 PROPELLANT CHARGE LOADER Brandie bates MD PhD [facility] CPT-20867 Level 3 Est. Patient 16:31:47 PROPELLANT CHARGE LOADER Shola Wright [facility] CPT-25445 Level 3 Est. Patient 17:51:10 PROPELLANT CHARGE LOADER Abhinav Galvan MD [facility] CPT-08542 Level 4 Est. Patient 12:54:56 PROPELLANT CHARGE LOADER Kalpesh goins MD [facility] CPT-23039 Level 4 Est. Patient 12:53:56 PROPELLANT CHARGE LOADER Kalpesh goins MD [facility] CPT-96897 Level 3 Est. Patient 17:56:58 CDT Shola Wright [facility] CPT-10666 Level 3 Est. Patient 14:26:20 CDT Janak butcher [facility] CPT-73703 Level 3 Est. Patient 09:38:41 CDT Shola Wright [facility] CPT-87006 Level 3 Est. Patient 14:45:26 CDT Edilberto tiwari [facility] CPT-01642 Level 3 Est. Patient 10:51:33 CD[facility] Est[facility] Patient 11:57:55 PROPELLANT CHARGE LOADER Shola Wright [facility] CPT-64659 Level 3 Est. Patient 09:53:33 PROPELLANT CHARGE LOADER Edilberto tiwari DO [facility] CPT-22126 Level 3 Est. Patient 14:42:54 PROPELLANT CHARGE LOADER Abhinav Galvan MD [facility] CPT-98362 Level 3 Est. Patient 15:10:02 CDT Janak butcher ARTEM [facility] CPT-62099 Level 3 Est. Patient 15:20:20 CDT Theo dennis MD [facility] CPT-33478 Level 2 Est. Patient 14:08:57 CDT Kalpesh goins MD [facility] CPT-55771 Level 3 Est. Patient 13:56:19 CDT Abdirahman Rios MD [facility] CPT-10734 Level 3 Est. Patient 13:59:37 CDT Abdirahman Rios MD [facility] CPT-07953 Level 2 Est. Patient 14:44:59 CDT Kalpesh goins MD [facility] CPT-92184 Level 3 Est. Patient 06:06:23 CDT Edilberto tiwari [facility] CPT-26391 Level 3 Est. Patient 15:23:54 CDT Abdirahman Rios MD [facility] CPT-21200 Level 3 Est. Patient 15:43:49 CDT Abdirahman Rios MD [facility] CPT-32955 Level 3 Est. Patient 12:46:47 PROPELLANT CHARGE LOADER Abdirahman Rios MD [facility] CPT-41461 Level 3 Est. Patient 08:13:35 PROPELLANT CHARGE LOADER Abdirahman Rios MD [facility] CPT-37802 Level 2 Est. Patient 09:36:42 PROPELLANT CHARGE LOADER Abdirahman Rios MD [facility] CPT-37326 Level 3 Est. Patient 10:56:43 CDT Abdirahman Rios MD [facility] CPT-86446 Level 3 Est. Patient 18:24:52 CDT Abdirahman Rios MD [facility] CPT-32392 Level 3 Est. Patient 13:27:22 CDT Abdirahman Rios MD [facility] Procedures Code Procedure Name Date Entry Date Standard Desc ription CPT-11088 Postop F/U Visit 16:21:51 [employer]OPELLANT CHARGE LOADER CPT-40406 Postop F/U Visit 17:09:41 [employer]OPELLANT CHARGE LOADER CPT-14042 Postop F/U Visit 14:08:43 [employer]OPELLANT CHARGE LOADER CPT-36136 Postop F/U Visit 15:18:16 [employer]OPELLANT CHARGE LOADER CPT-22388 Postop F/U Visit 15:03:49 [employer]OPELLANT CHARGE LOADER CPT-59576 Postop F/U Visit 14:45:23 [employer]OPELLANT CHARGE LOADER CPT-25769 Postop F/U Visit 14:11:03 [employer]OPELLANT CHARGE LOADER CPT-82453 Postop F/U Visit 18:21:21 [employer]OPELLANT CHARGE LOADER CPT-68919 Postop F/U Visit 15:57:12 [employer]OPELLANT CHARGE LOADER CPT-67200 Bladder Instillation 16:58:41 PROPELLANT CHARGE LOADER 6 CPT-88365 Fluzone Quadrivalent Intramuscular Suspe nsion 0.5 ML 15:20:56 [employer]OPELLANT CHARGE LOADER CPT-70346 Immunization Single Admin 15:20:56 [employer]OPELLANT CHARGE LOADER 2014 CPT-66620 Excis pilonidal cyst simple 08:51:34 CDT 20 22/04/20 CPT-04554 Venipuncture Draw Fee 14:27:29 CDT CPT-29949 Postop F/U Visit 15:27:43 CDT CPT-52772 Postop F/U Visit 14:40:59 CDT CPT-13116 Postop F/U Visit 15:02:46 CDT CPT-18135 Postop F/U Visit 11:29:00 [employer]OPELLANT [employer]GE LOADER CPT-J0696 Rocephin 1000 mg (Ceftriaxone) 17:22:33 [employer]LLANT CHARGE LOADER CPT-47744 Postop F/U Visit 18:41:07 [employer]OPELLANT CHARGE LOADER CPT-20139 Postop F/U Visit 08:19:08 [employer]OPELLANT CHARGE LOADER CPT-69093 Immunization Single Admin 16:41:53 CDT 2013 CPT-28159 Fluzone Quadrivalent Intramuscular Suspe nsion 0.5 ML 16:41:53 CDT CPT-OV Office Visit 16:39:18 CDT CPT-OV Office Visit 16:16:36 CDT CPT-OV Office Visit 15:34:48 CDT CPT-03475 Postop F/U Visit 14:50:12 CDT CPT-67939 Postop F/U Visit 14:41:10 CDT CPT-13030 Venipuncture Draw Fee 11:38:04 [employer]OPELLANT CHARGE LOADER CPT-83254 Postop F/U Visit 19:02:59 [employer]OPELLANT CHARGE LOADER CPT-96209 Postop F/U Visit 12:04:54 [employer]OPELLANT CHARGE LOADER CPT-30097 Administration single or combination vac cine inc oral 15:56:43 CDT CPT-87083 Influenza split virus > age 3 15:56:43 CDT CPT-23400 Hand comp min 3V 14:25:19 CDT CPT-36662 Postop F/U Visit 21:40:51 CDT CPT-21066 Postop F/U Visit 10:58:43 CDT CPT-05164 Administration single or combination vac cine inc oral 12:33:54 [employer]OPELLANT CHARGE LOADER CPT-82552 Influenza Preservative Free split virus >age 3 12:33:54 [employer]OPELLANT CHARGE LOADER CPT-29769 Administration single or combination vac cine inc oral 09:30:51 CDT CPT-96640 Influenza split virus > age 3 09:30:51 CDT CPT-41596 Postop F/U Visit 15:14:53 CDT CPT-34452 Postop F/U Visit 13:50:14 CDT CPT-79320 Postop F/U Visit 13:34:52 CDT CPT-OV Office Visit 16:55:03 CDT CPT-75683 Hopkins of cervix w bx ECC 13:32:50 CDT 10/19 CPT-J1885 Toradol 60 mg (Ketorolac) 15:31:59 CDT 2011 CPT-J1885 Toradol 60 mg (Ketorolac) 15:23:54 CDT 2011 CPT-05259 Visit 11:34:37 [employer]OPELLANT CHARGE LOADER CPT-26773 Visit 10:52:39 [employer]OPELLANT CHARGE LOADER CPT-43040 Visit 10:12:02 [employer]OPELLANT CHARGE LOADER CPT-53897 Visit 11:22:43 [employer]OPELLANT CHARGE LOADER CPT-16854 Visit 11:24:12 [employer]OPELLANT CHARGE LOADER CPT-33165 Visit 10:47:05 PROPELLANT CHARGE LOADER CPT-OV Office Visit 10:26:16 [employer]OPELLANT CHARGE LOADER CPT-OV Office Visit 15:34:31 [employer]OPELLANT CHARGE LOADER CPT-33342 Visit 10:42:08 [employer]OPELLANT CHARGE LOADER CPT-56931 Visit 10:52:45 [employer]OPELLANT CHARGE LOADER CPT-000 Give Appropriate Flu Vaccine 16:56:41 CDT 2 CPT-82849 Administration single or combination vac cine inc oral 10:33:21 CDT CPT-75566 Influenza split virus > age 3 10:33:21 CDT CPT-76713 Visit 13:23:09 CDT CPT-50897 Visit 18:24:52 CDT CPT-99356 Sono OB comp > 14 weeks 12:07:49 CDT 04/07
--- OUTSIDE RECORDS SUMMARY | 2020-01-18 16:34 | XMS REPORT | Clinical Summary ---
[...] NEC Abscess, perirectal 566 Active Hira roman [employer] Abscess of anal and rectal regions , [...] 1 po TID PRN Pain 3 HYDROCODONE-ACETAMINOPHEN [id number] Active Abdirahman Rios MD Active IAZCOJICLD-XRZ-AOFDJYNV 50-325-40 MG ORAL CAPS 1-2 po TID NV N Headache YCRXTLDXFA-DIALOII-EDLCJVID 15174780195 Active Abdirahman Rios MD Active AUGMENTIN 875-125 MG TAB 1 tab by mouth twice daily with food 20 21/10/13 AMOXICILLIN-POT CLAVULANATE 12681555786 No Longer Active Ursula Moser APRN Active PERCOCET 10-325 MG ORAL TABS 1 every 4 hours as needed OXYCODONE-ACETAMINOPHEN 98381078763 Active Hira Moser APRN Active PROAIR HFA 108 (90 BASE) MCG/ACT AERS 2 puff q 4-6 hrs PRN 01/24 ALBUTEROL SULFATE 90821627831 No Longer Active Kalpesh Dong MD Active ALPRAZOLAM 0.5 MG TABS 1 po BID PRN Anxiety ALPRA ZOLAM 10139575662 Active Abdirahman Rios MD Active EMLA 2.5-2.5 % EXT CREA apply to skin lesion q 6 hours, prn LIDOCAINE-PRILOCAINE 79390458851 Active Hira Moser APRN Active CYCLOBENZAPRINE HCL 10 MG TABS 1 tablet by mouth three times daily as needed for muscle spasm/pain CYCLOBENZAPRINE HCL 78526812022 Active Abdirahman Rios MD Active PREDNISONE 20 MG TAB 2 tabs daily for 3 days, 1 t ab daily for 3 days, 1/2 tab daily for 2 days PREDNISONE 39990420418 No Longer Active Abdirahman Rios MD Active KEFLEX 500 MG CAP 1 po qid CEPHALEXIN 105478156 20 No Longer Active Kalpesh Dong MD Active PERCOCET 5-325 MG TAB 1 every 6 hours as needed OXYCODONE-ACETAMINOPHEN 64281399627 No Longer Active Shola MCGILL Active LC-5 LIDOCAINE 5 % CREA apply 1 time daily to affected area 2013 LIDOCAINE (ANORECTAL) 76991406793 No Longer Active Hira garciaell [employer] Active HYDROCODONE-ACETAMINOPHEN 10-325 MG TABS 1 by mouth ev chaka 8 hours as needed for pain HYDROCODONE-ACETAMINOPHEN 30169171449 No Longer Active Jillina Frazell [employer] Active LORATADINE 10 MG TABS 1 tablet by mouth daily L ORATADINE 03252133964 No Longer Active Jillina Frazell [employer] Active DIFLUCAN 150 MG TAB 1 qODay x 2 doses FLUCONAZO LE 38043645283 No Longer Active Jillina Frazell [employer] Active CYCLOBENZAPRINE HCL 10 MG TABS 1/2 - 1 tab PO tid PRN back p ain, muscle spasm CYCLOBENZAPRINE HCL 75600185574 No Longer Active Karen herson Frazell [employer] Active AUGMENTIN 875-125 MG TAB 1 tab by mouth twice daily with food 20 22/05/07 AMOXICILLIN-POT CLAVULANATE 83561931272 No Longer Active Loida Rios MD Active MOBIC 15 MG TABS 1 tab daily MELOXICAM 926462978 14 No Longer Active Abdirahman Rios MD Active PERCOCET 7.5-325 MG TABS 1 PO tid PRN pain OXYCODONE-ACETAMINOPHEN 59659164520 No Longer Active Abdirahman Rios MD Active LIDODERM 5 % PTCH One patch to painful area NV N. On for 12 hrs, off for 12 hrs. LIDOCAINE 75316291305 No Longer Active Abdirahman Rios MD Active PERCOCET 7.5-325 MG TABS 1 PO q 8 hrs PRN pain OXYCODONE-ACETAMINOPHEN 78769917092 No Longer Active Shola MCGILL Active HYDROCODONE-ACETAMINOPHEN 7.5-325 MG TABS 1 by mouth e very 6 hours as needed for pain HYDROCODONE-ACETAMINOPHEN 67654990004 No Longer Active Good Julian MD Active CLINDAMYCIN HCL 300 MG CAPS 1 po QID x 7 days CLINDAMYCIN HCL 03389816667 No Longer Active Abdirahman Rios MD Activ e BACTRIM DS 800-160 MG TABS 1 po BID x 7 days 5 SULFAMETHOXAZOLE-TRIMETHOPRIM 81137224326 No Longer Active Abdirahman Rios MD Active ENDOCET 10-325 MG TABS 1 q 6 hr prn OXYCODONE-ACETAMINOPHEN 22141297069 No Longer Active Abdirahman Rios MD Active IBUPROFEN 800 MG TABS 1 tid prn IBUPROFEN 668464 16517 No Longer Active Abdirahman Rios MD Active BACTRIM DS 800-160 MG TABS by mouth twice a day 11/05 SULFAMETHOXAZOLE-TRIMETHOPRIM 05365437835 No Longer Active Good Julian MD Active HYDROCODONE-ACETAMINOPHEN 7.5-325 MG TABS 1 four times a day as needed for pain HYDROCODONE-ACETAMINOPHEN 93021536113 No Longer Activ e Good Julian MD Active KEFLEX 500 MG CAP 1 tab po tid CEPHALEXIN 489501 34115 No Longer Active Jillina Shanti [employer] Active IBUPROFEN 800 MG TAB 1 pill three times daily as needed for pain IBUPROFEN 35542166197 No Longer Active Kalpesh Dong MD Active PROMETHAZINE-CODEINE 6.25-10 MG/5ML SYRP 1 tsp every 6 hrs prn c ough PROMETHAZINE-CODEINE 25991247768 No Longer Active Kalpesh Carr Active HYDROCODONE-ACETAMINOPHEN 5-325 MG TABS 1 tab by mouth every 6 hours as needed HYDROCODONE-ACETAMINOPHEN 84295444253 No Longer Activ e Shola MCGILL Active CEPHALEXIN 500 MG CAPS 1 PO bid x 7 days CEPHAL EXIN 76083756567 No Longer Active Shola MCGILL Active BACTRIM DS 800-160 MG TAB 1 tab by mouth twice daily 2 TRIMETHOPRIM-SULFAMETHOXAZOLE 19165638118 No Longer Active Kalpesh Dong MD Active HYDROCODONE-ACETAMINOPHEN 5-325 MG TABS 1 PO tid PRN pain 5 HYDROCODONE-ACETAMINOPHEN 89100935749 No Longer Active Abhinav Galvan MD Active IMPLANON 68 MG IMPL IMPLANTED IN LEFT ARM ETONO GESTREL 21171098291 No Longer Active Hira Moser APRN Active AMOXICILLIN 500 MG TABS 2 tabs PO bid x 10 d AM OXICILLIN 49305597240 No Longer Active Kalpesh Dong MD Active LEVAQUIN 500 MG TABS 1 PO q day x 7 days LEVOFL OXACIN 31821129976 No Longer Active Shola MCGILL Active AMITRIPTYLINE HCL 25 MG TAB 1 tab by mouth daily 60 minutes before bedtime AMITRIPTYLINE HCL 95423517721 No Longer Active Shola MCGILL Active LORTAB 5 5-500 MG TABS 1/2 to 1 tablet by mouth go ry 6 hours as needed for pain HYDROCODONE-ACETAMINOPHEN 03561287369 No Longer Active Shola MCGILL Active CEPHALEXIN 500 MG TABS Take one by mouth four times daily, morning, noon, early evening and bedtime. CEPHALEXIN 52799237250 No Long er Active Hira Moser APRN Active TYLENOL/CODEINE #3 300-30 MG TAB 1-2 po q6hr PRN Pain ACETAMINOPHEN-CODEINE 02111886888 No Longer Active Edilberto Marino DO Active PRISTIQ 50 MG [id number] 1 po qd DESVENLAFAXI NE SUCCINATE 43634541093 No Longer Active Edilberto Marino DO Active PENICILLIN V POTASSIUM 500 MG TAB 1 four times a day 2 PENICILLIN V POTASSIUM 61560953261 No Longer Active Edilberto Marino DO Active DOXYCYCLINE HYCLATE 100 MG CAPS Take one (1) tablet by mouth twice a day DOXYCYCLINE HYCLATE 59089723033 No Longer Active Ronnie Galvan MD Active HYDROCODONE-ACETAMINOPHEN 5-325 MG TABS 1 po q 6hr PRN Pain 2011 HYDROCODONE-ACETAMINOPHEN 69261076655 No Longer Active Patri joan Perez RN Active BACTRIM DS 800-160 MG TAB 1 tab by mouth twice daily 2 TRIMETHOPRIM-SULFAMETHOXAZOLE 19258148690 No Longer Active Kalpesh Dong MD Active LORTAB 5 5-500 MG TABS 1/2 to 1 tablet by mouth go ry 4 hours as needed for pain HYDROCODONE-ACETAMINOPHEN 85665006081 No Longer Active Kalpesh Dong MD Active GENERESS FE 0.8-25 MG-MCG CHEW Take one by mouth daily NORETHIN-ETH ESTRADIOL-FE 11324572564 No Longer Active Kalpesh Dong MD Active HYDROCODONE-ACETAMINOPHEN 7.5-500 MG TABS 1-2 every 4 hours as needed HYDROCODONE-ACETAMINOPHEN 75928449972 No Longer Activ e Kalpesh Dong MD Active FERROUS SULFATE 325 (65 FE) MG TABS 1 tablet by mouth twice yung y FERROUS SULFATE 52160914675 No Longer Active Kalpesh Dong MD Active IBUPROFEN 600 MG TAB 1 po q6-8hr PRN IBUPROFEN 75070729584 No Longer Active Kalpesh Dong MD Active SPIRONOLACTONE 25 MG TAB 1 tablet by mouth daily 01/22 SPIRONOLACTONE 67612291683 No Longer Active Kalpesh Dong MD Acti ve HYDROCODONE-ACETAMINOPHEN 7.5-325 MG TABS 1 po QID PRN Pain 2011 HYDROCODONE-ACETAMINOPHEN 63008982758 No Longer Active Kalpesh Dong MD Active CLINDAMYCIN HCL 300 MG CAPS 1 po q6hr x 7 days CLINDAMYCIN HCL 84089674071 No Longer Active Edilberto W Ned DO Active PREDNISONE 20 MG TAB 2 tabs daily for 4 days, 1 t ab daily for 4 days, 1/2 tab daily for 4 days PREDNISONE 36056160842 No Longer Active Edilberto Marino DO Active PERCOCET 5-325 MG TABS 1 tablet by mouth every 6 hours as ne eded for pain OXYCODONE-ACETAMINOPHEN 09993382082 No Longer Active Abdirahman Rios MD Active VITAMINS TABS Take one by mouth daily MV & MIN W/FE-FA TABS 66525912904 No Longer Active Abdirahman Rios MD Active LUIS 3-0.02 MG TABS 1 tablet by mouth daily as directed DROSPIRENONE-ETHINYL ESTRADIOL 58637886773 No Longer Active Abdirahman Rios MD Active LORATADINE 10 MG TABS 1 tablet by mouth daily L ORATADINE 50303625912 No Longer Active Kalpesh Dong MD Active HYDROCODONE-ACETAMINOPHEN 5-325 MG TABS 1 po q 6hr PRN Pain 2010 HYDROCODONE-ACETAMINOPHEN 73347981031 No Longer Active Edilberto Marino DO Active BACTRIM DS 800-160 MG TAB 1 tab by mouth twice daily 2 TRIMETHOPRIM-SULFAMETHOXAZOLE 13497986079 No Longer Active Abdirahman Rios MD Active 28-0.8 MG TABS Take one by mouth daily 09/20 VIT-FE FUMARATE-FA 60195295347 No Longer Active Abdirahman Rios MD Active CIPRO 500 MG TAB 1 tablet by mouth twice daily CIPROFLOXACIN HCL 53689666592 No Longer Active Abdirahman Rios MD Active BENADRYL 25 MG CAP 1 po q8hr PRN Congestion DIPHENHYDRAMINE HCL 28256612508 No Longer Active Abdirahman Rios MD Active ZOLOFT 50 MG TAB 1 po qd SERTRALINE HCL 682673 49755 No Longer Active Abdirahman Rios MD Active AMOXICILLIN 875 MG TABS 1 tab by mouth twice daily 201 08/09/13 AMOXICILLIN 41899578007 No Longer Active Abdirahman Rios MD Activ e AMOXICILLIN 875 MG TABS 1 tab by mouth twice daily 201 07/19/27 AMOXICILLIN 05558668359 No Longer Active Abdirahman Rios MD Activ e BACTRIM DS 800-160 MG TAB 2 tab by mouth twice daily 2 TRIMETHOPRIM-SULFAMETHOXAZOLE 58625094997 No Longer Active Abdirahman Rios MD Active KEFLEX 500 MG CAP 1 po tid x 10 days CEPHALEXIN 77144921636 No Longer Active Abdirahman Rios MD Active AMOXICILLIN 875 MG TABS 1 tab by mouth twice daily 201 07/18/07 AMOXICILLIN 45848388572 No Longer Active Abdirahman Rios MD Activ e BACTRIM DS 800-160 MG TAB 2 tab by mouth twice daily 2 BACTRIM DS 800-160 MG TAB TRIMETHOPRIM-SULFAMETHOXAZOLE Inactive ZOLOFT 50 MG TAB 1 po qd ZOLOFT 50 MG TAB 3129 41 SERTRALINE HCL Inactive BENADRYL 25 MG CAP 1 po q8hr PRN Congestion BENADRYL 25 MG CAP 6207032 DIPHENHYDRAMINE HCL Inactive 28-0.8 MG TABS Take one by mouth daily 09/20 28-0.8 MG TABS VIT-FE FUMARATE-FA Inactive HYDROCODONE-ACETAMINOPHEN 5-325 MG TABS 1 po q 6hr PRN Pain 2010 HYDROCODONE-ACETAMINOPHEN 5-325 MG TABS 519427 HYDROCODONE-ACETAMINOPHEN Inactive LORATADINE 10 MG TABS 1 tablet by mouth daily LORATADINE 10 MG TABS 825428 LORATADINE Inactive LUIS 3-0.02 MG TABS 1 tablet by mouth daily as directed LUIS 3-0.02 MG TABS DROSPIRENONE-ETHINYL ESTRADIOL Inactive VITAMINS TABS Take one by mouth daily VITAMINS TABS MV & MIN W/FE-FA TABS Inactive PERCOCET 5-325 MG TABS 1 tablet by mouth every 6 hours as ne eded for pain PERCOCET 5-325 MG TABS 9696088 OXYCODONE-ACETAMIN OPHEN Inactive PREDNISONE 20 MG TAB 2 tabs daily for 4 days, 1 t ab daily for 4 days, 1/2 tab daily for 4 days PREDNISONE 20 MG TAB 812850 PREDNISON E Inactive CLINDAMYCIN HCL 300 MG CAPS 1 po q6hr x 7 days CLINDAMYCIN HCL 300 MG CAPS 777693 CLINDAMYCIN HCL Inactive HYDROCODONE-ACETAMINOPHEN 7.5-325 MG TABS 1 po QID PRN Pain 2011 HYDROCODONE-ACETAMINOPHEN 7.5-325 MG TABS 841883 HYDROCODONE-ACETAMINOPHEN Inactive SPIRONOLACTONE 25 MG TAB 1 tablet by mouth daily 01/22 SPIRONOLACTONE 25 MG TAB 650915 SPIRONOLACTONE Inactive IBUPROFEN 600 MG TAB 1 po q6-8hr PRN IBUPROFEN 600 MG TAB 060632 IBUPROFEN Inactive FERROUS SULFATE 325 (65 FE) MG TABS 1 tablet by mouth twice yung y FERROUS SULFATE 325 (65 FE) MG TABS 155490 FERROUS SULF ATE Inactive HYDROCODONE-ACETAMINOPHEN 7.5-500 MG [...] PRN Pain 2011 HYDROCODONE-ACETAMINOPHEN 5-325 MG TABS 626750 HYDROCODONE-ACETAMINOPHEN Inactive DOXYCYCLINE HYCLATE 100 MG CAPS Take one (1) tablet by mouth twice a day DOXYCYCLINE HYCLATE 100 MG CAPS 787333 DOXYCYCLINE HYCLATE Inactive PENICILLIN V POTASSIUM 500 MG TAB 1 four times a day 2 PENICILLIN V POTASSIUM 500 MG TAB 279267 PENICILLIN V POTASSIUM [place] ct[facility] PRISTIQ 50 MG [id number] 1 po qd PRISTIQ 50 MG [id number] DESVENLAFAXINE SUCCINATE Inactive TYLENOL/CODEINE #3 300-30 MG TAB 1-2 po q6hr PRN Pain TYLENOL/CODEINE #3 300-30 MG TAB 328838 ACETAMINOPHEN-CODEINE Inact krishna CEPHALEXIN 500 MG TABS Take one by mouth four times daily, morning, noon, early evening and bedtime. CEPHALEXIN 500 MG TABS 423052 CEPHALEXIN Inactive LORTAB 5 5-500 MG TABS 1/2 to 1 tablet by mouth go ry 6 hours as needed for pain LORTAB 5 5-500 MG TABS HYDROCODONE-A CETAMINOPHEN Inactive AMITRIPTYLINE HCL 25 MG TAB 1 tab by mouth daily 60 minutes before bedtime AMITRIPTYLINE HCL 25 MG TAB 382997 AMITRIPTYLINE HCL Inactive AMOXICILLIN 500 MG TABS 2 tabs PO bid x 10 d 7 AMOXICILLIN 500 MG TABS 411143 AMOXICILLIN Inactive IMPLANON 68 MG IMPL IMPLANTED IN LEFT ARM IMPLANON 68 MG IMPL ETONOGESTREL Inactive HYDROCODONE-ACETAMINOPHEN 5-325 MG TABS 1 PO tid PRN pain 5 HYDROCODONE-ACETAMINOPHEN 5-325 MG TABS 774027 HYDROCODONE-ACETAMIN OPHEN Inactive BACTRIM DS 800-160 MG TAB 1 tab by mouth twice daily 2 BACTRIM DS 800-160 MG TAB TRIMETHOPRIM-SULFAMETHOXAZOLE Inac tive CEPHALEXIN 500 MG CAPS 1 PO bid x 7 days CEPHALEXIN 500 MG CAPS 153766 CEPHALEXIN Inactive HYDROCODONE-ACETAMINOPHEN 5-325 MG TABS 1 tab by mouth every 6 hours as needed HYDROCODONE-ACETAMINOPHEN 5-325 MG TABS 189248 HYDROCODONE-ACETAMINOPHEN Inactive PROMETHAZINE-CODEINE 6.25-10 MG/5ML SYRP 1 tsp every 6 hrs prn c ough PROMETHAZINE-CODEINE 6.25-10 MG/5ML SYRP 173345 PROMETH AZINE-CODEINE Inactive IBUPROFEN 800 MG TAB 1 pill three times daily as needed for pain IBUPROFEN 800 MG TAB 735236 IBUPROFEN Inactive KEFLEX 500 MG CAP 1 tab po tid KEFLEX 500 MG CAP 573164 CEPHALEXIN Inactive HYDROCODONE-ACETAMINOPHEN 7.5-325 MG TABS 1 four times a day as needed for pain HYDROCODONE-ACETAMINOPHEN 7.5-325 MG TABS 622992 HYDROCODONE-ACETAMINOPHEN Inactive BACTRIM DS 800-160 MG TABS by mouth twice a day 11/05 BACTRIM DS 800-160 MG TABS SULFAMETHOXAZOLE-TRIMETHOPRIM Inactive IBUPROFEN 800 MG TABS 1 tid prn IBUPROFEN 800 MG TABS 614368 IBUPROFEN Inactive ENDOCET 10-325 MG TABS 1 q 6 hr prn ENDOC ET 10-325 MG TABS 2506277 OXYCODONE-ACETAMINOPHEN Inactive HYDROCODONE-ACETAMINOPHEN 7.5-325 MG TABS 1 by mouth e very 6 hours as needed for pain HYDROCODONE-ACETAMINOPHEN 7.5-325 MG TABS 944582 HYDROCODONE-ACETAMINOPHEN Inactive PERCOCET 7.5-325 MG TABS 1 PO q 8 hrs PRN pain PERCOCET 7.5-325 MG TABS 6849792 OXYCODONE-ACETAMINOPHEN Inactive LIDODERM 5 % PTCH One patch to painful area NV N. On for 12 hrs, off for 12 hrs. LIDODERM 5 % PTCH 5027309 LIDOCAINE Inactiv e PERCOCET 7.5-325 MG TABS 1 PO tid PRN pain PERCOCET 7.5- 325 MG TABS 6565862 OXYCODONE-ACETAMINOPHEN Inactive MOBIC 15 MG TABS 1 tab daily MOBIC 15 MG TABS 15 2695 MELOXICAM Inactive CYCLOBENZAPRINE HCL 10 MG TABS 1/2 - 1 tab PO tid PRN back p ain, muscle spasm CYCLOBENZAPRINE HCL 10 MG TABS 251712 CYCLOBENZA JOSEPH HCL Inactive LORATADINE 10 MG TABS 1 tablet by mouth daily LORATADINE 10 MG TABS 698561 LORATADINE Inactive HYDROCODONE-ACETAMINOPHEN 10-325 MG TABS 1 by mouth ev chaka 8 hours as needed for pain HYDROCODONE-ACETAMINOPHEN 10-325 MG TABS 494166 HYDROCODONE-ACETAMINOPHEN Inactive LC-5 LIDOCAINE 5 % CREA apply 1 time daily to affected area 2013 LC-5 LIDOCAINE 5 % CREA LIDOCAINE (ANORECTAL) In active PERCOCET 5-325 MG TAB 1 every 6 hours as needed PERCOCET 5-325 MG TAB 8568206 OXYCODONE-ACETAMINOPHEN Inactive KEFLEX 500 MG CAP 1 po qid KEFLEX 500 MG CAP 30 9114 CEPHALEXIN Inactive PROAIR HFA 108 (90 BASE) MCG/ACT AERS 2 puff q 4-6 hrs PRN 01/24 PROAIR HFA 108 (90 BASE) MCG/ACT AERS ALBUTEROL SULFATE Inactive AMOXICILLIN 875 MG TABS 1 tab by mouth twice daily 201 07/18/07 AMOXICILLIN 875 MG TABS 475591 AMOXICILLIN Inactive KEFLEX 500 MG CAP 1 po tid x 10 days KEFLEX 500 MG CAP 473641 CEPHALEXIN Inactive AMOXICILLIN 875 MG TABS 1 tab by mouth twice daily 201 07/19/27 AMOXICILLIN 875 MG TABS 389564 AMOXICILLIN Inactive AMOXICILLIN 875 MG TABS 1 tab by mouth twice daily 201 08/09/13 AMOXICILLIN 875 MG TABS 549991 AMOXICILLIN Inactive CIPRO 500 MG TAB 1 tablet by mouth twice daily CIPRO 500 MG TAB 363596 CIPROFLOXACIN HCL Inactive BACTRIM DS 800-160 MG TAB 1 tab by mouth twice daily 2 BACTRIM DS 800-160 MG TAB TRIMETHOPRIM-SULFAMETHOXAZOLE Inac tive LEVAQUIN 500 MG TABS 1 PO q day x 7 days LEVAQUIN 500 MG TABS 192140 LEVOFLOXACIN Inactive CLINDAMYCIN HCL 300 MG CAPS 1 po QID x 7 days CLINDAMYCIN HCL 300 MG CAPS 800399 CLINDAMYCIN HCL Inactive AUGMENTIN 875-125 MG TAB 1 tab by mouth twice daily with food 20 22/05/07 AUGMENTIN 875-125 MG TAB 999863 AMOXICILLIN-POT CLAVULA [place] Inactive DIFLUCAN 150 MG TAB 1 qODay x 2 doses DIFLUCAN 150 MG TAB 869106 FLUCONAZOLE Inactive PREDNISONE 20 MG TAB 2 tabs daily for 3 days, 1 t ab daily for 3 days, 1/2 tab daily for 2 days PREDNISONE 20 MG TAB 129322 PREDNISON E Inactive AUGMENTIN 875-125 MG TAB 1 tab by mouth twice daily with food 20 21/10/13 AUGMENTIN 875-125 MG TAB 840342 AMOXICILLIN-POT CLAVULA [place] Inactive Advance Directives Directive Description Start Date PERMISSION TO SHARE Immunizations Vaccine Administration Date Value Standard Alf cription Seasonal influenza vaccine, injectable, containing preservative, for > 3 years old (Afluria, FluLaval, Fluzone, Fluvirin, Fluarix, Agriflu(>= 18 yo)) Fluzone (>3 yrs.) [[id number]] Influenza, seasonal, inject able Seasonal influenza vaccine, injectable, preservative free, for > 3 years old (Afluria, FluLaval, Fluzone, Fluvirin, Fluarix, Agriflu(>= 18 yo)) Fluzone preservative free (>3 yrs.) [[id number]] Influenza, seasonal, injectable, preservative free Seasonal influenza vaccine, injectable, containing preservative, for > 3 years old (Afluria, FluLaval, Fluzone, Fluvirin, Fluarix, Agriflu(>= 18 yo)) Fluzone (>3 yrs.) [[id number]] Influenza, seasonal, inject able Seasonal influenza vaccine, injectable, containing preservative, for > 3 years old (Afluria, FluLaval, Fluzone, Fluvirin, Fluarix, Agriflu(>= 18 yo)) Fluzone (>3 yrs.) [[id number]] Influenza, seasonal, inject able dT (Diphtheria and [...] pressure, diastolic - 8462-4 82 mm[Hg] BP irbeiro blood pressure, systolic - 8480-6 131 mm[Hg] [...] Panel - Chemistry sodium, serum 142 mmol/L 913-121 5101/05/12 potassium, serum 4.8 mmol/L 3.5-5.2 chloride, serum [...] Panel - Chemistry cholesterol, serum 165 mg/dL 606-315 3216/05/12 triglyceride, serum, fasting 524 mg/dL 30-200 HDL [...] negative Encounters Code Encounter Date Provider Facility CPT-30089 Level 2 Est. Patient 07:49:32 CDT Kalpesh goins MD [facility] CPT-31102 Level 3 New Patient 15:47:11 OTHER WOOD PROCESSING MACHINE OPERATOR Bj huber MD [facility] CPT-68101 Level 4 Est. Patient 14:37:38 OTHER WOOD PROCESSING MACHINE OPERATOR Abdirahman Rios MD [facility] CPT-61075 Level 2 Est. Patient 13:32:17 OTHER WOOD PROCESSING MACHINE OPERATOR Kalpesh goins MD [facility] CPT-44585 Level 3 Est. Patient 17:32:57 OTHER WOOD PROCESSING MACHINE OPERATOR Edilberto tiwari [facility] CPT-99065 Level 3 Est. Patient 17:22:33 OTHER WOOD PROCESSING MACHINE OPERATOR Edilberto tiwari [facility] CPT-15634 Level 2 Est. Patient 16:57:09 OTHER WOOD PROCESSING MACHINE OPERATOR Kalpesh goins MD [facility] CPT-26706 Level 3 Est. Patient 14:03:08 OTHER WOOD PROCESSING MACHINE OPERATOR Abdirahman Rios MD [facility] CPT-39410 Level 3 Est. Patient 18:12:34 CDT Shola MCGILL [facility] CPT-57950 Level 3 Est. Patient 19:34:46 CDT Shola Wright [facility] CPT-52903 Level 3 Est. Patient 14:19:37 CDT Abdirahman Rios MD [facility] CPT-27406 Level 3 Est. Patient 14:11:58 CDT Kalpesh goins MD [facility] CPT-01278 Level 3 Est. Patient 16:50:00 CDT Michelle BRADFORDP [facility] CPT-97132 Level 3 Est. Patient 17:11:32 OTHER WOOD PROCESSING MACHINE OPERATOR Brandie bates MD PhD [facility]-01367 Level 3 Est. Patient 16:31:47 OTHER WOOD PROCESSING MACHINE OPERATOR Shola Wright [facility] CPT-59673 Level 3 Est. Patient 17:51:10 OTHER WOOD PROCESSING MACHINE OPERATOR Abhinav Galvan MD [facility] CPT-08329 Level 4 Est. Patient 12:54:56 OTHER WOOD PROCESSING MACHINE OPERATOR Kalpesh goins MD [facility] CPT-29560 Level 4 Est. Patient 12:53:56 OTHER WOOD PROCESSING MACHINE OPERATOR Kalpesh goins MD [facility] CPT-84142 Level 3 Est. Patient 17:56:58 CDT Shola Wright [facility] CPT-95954 Level 3 Est. Patient 14:26:20 CDT Janak butcher [facility] CPT-59468 Level 3 Est. Patient 09:38:41 CDT Shola Wright [facility] CPT-93284 Level 3 Est. Patient 14:45:26 CDT Edilberto tiwari DO [facility] CPT-58317 Level 3 Est. Patient 10:51:33 [facility] 3 Est. Patient 11:57:55 OTHER WOOD PROCESSING MACHINE OPERATOR Shola Wright [facility] CPT-26876 Level 3 Est. Patient 09:53:33 OTHER WOOD PROCESSING MACHINE OPERATOR Edilberto tiwari [facility] CPT-45705 Level 3 Est. Patient 14:42:54 OTHER WOOD PROCESSING MACHINE OPERATOR Abhinav Galvan MD [facility] CPT-02027 Level 3 Est. Patient 15:10:02 CDT Janak butcher [facility] CPT-26393 Level 3 Est. Patient 15:20:20 CDT Theo dennis MD [facility] CPT-09213 Level 2 Est. Patient 14:08:57 CDT Kalpesh goins MD [facility] CPT-77040 Level 3 Est. Patient 13:56:19 CDT Abdirahman Rios MD [facility] CPT-56034 Level 3 Est. Patient 13:59:37 CDT Abdirahman Rios MD [facility] CPT-25702 Level 2 Est. Patient 14:44:59 CDT Kalpesh goins MD [facility] CPT-05266 Level 3 Est. Patient 06:06:23 CDT Edilberto tiwari [facility] CPT-91648 Level 3 Est. Patient 15:23:54 CDT Abdirahman Rios MD [facility] CPT-72582 Level 3 Est. Patient 15:43:49 CDT Abdirahman Rios MD [facility] CPT-43880 Level 3 Est. Patient 12:46:47 OTHER WOOD PROCESSING MACHINE OPERATOR Abdirahman Rios MD [facility] CPT-90906 Level 3 Est. Patient 08:13:35 OTHER WOOD PROCESSING MACHINE OPERATOR Abdirahman Rios MD [facility] CPT-97500 Level 2 Est. Patient 09:36:42 OTHER WOOD PROCESSING MACHINE OPERATOR Abdirahman Rios MD [facility] CPT-21835 Level 3 Est. Patient 10:56:43 CDT Abdirahman Rios MD [facility] CPT-03939 Level 3 Est. Patient 18:24:52 CDT Abdirahman Rios MD [facility] CPT-10035 Level 3 Est. Patient 13:27:22 CDT Abdirahman Rios MD [facility] Procedures Code Procedure Name Date Entry Date Standard Desc ription CPT-04054 Postop F/U Visit 15:02:46 CDT CPT-21307 Postop F/U Visit 11:29:00 OTHER WOOD PROCESSING MACHINE OPERATOR CPT-J0696 Rocephin 1000 mg (Ceftriaxone) 17:22:33 OTHER WOOD PROCESSING MACHINE OPERATOR CPT-43450 Postop F/U Visit 18:41:07 OTHER WOOD PROCESSING MACHINE OPERATOR CPT-24805 Postop F/U Visit 08:19:08 OTHER WOOD PROCESSING MACHINE OPERATOR CPT-06100 Immunization Single Admin 16:41:53 CDT 2013 CPT-50934 Fluzone Quadrivalent Intramuscular Suspe nsion 0.5 ML 16:41:53 CDT CPT-OV Office Visit 16:39:18 CDT CPT-OV Office Visit 16:16:36 CDT CPT-OV Office Visit 15:34:48 CDT CPT-15452 Postop F/U Visit 14:50:12 CDT CPT-69077 Postop F/U Visit 14:41:10 CDT CPT-67311 Venipuncture Draw Fee 11:38:04 OTHER WO[employer] PROCESSING MACHINE OPERATOR CPT-22182 Postop F/U Visit 19:02:59 OTHER WOOD PROCESSING MACHINE OPERATOR CPT-49454 Postop F/U Visit 12:04:54 OTHER WOOD PROCESSING MACHINE OPERATOR CPT-26864 Administration single or combination vac cine inc oral 15:56:43 CDT CPT-23695 Influenza split virus > age 3 15:56:43 CDT CPT-55411 Hand comp min 3V 14:25:19 CDT CPT-81933 Postop F/U Visit 21:40:51 CDT CPT-79347 Postop F/U Visit 10:58:43 CDT CPT-06683 Administration single or combination vac cine inc oral 12:33:54 OTHER WOOD PROCESSING MACHINE OPERATOR CPT-88033 Influenza Preservative Free split virus >age 3 12:33:54 OTHER WOOD PROCESSING MACHINE OPERATOR CPT-75612 Administration single or combination vac cine inc oral 09:30:51 CDT CPT-56008 Influenza split virus > age 3 09:30:51 CDT CPT-72005 Postop F/U Visit 15:14:53 CDT CPT-10262 Postop F/U Visit 13:50:14 CDT CPT-90433 Postop F/U Visit 13:34:52 CDT CPT-OV Office Visit 16:55:03 CDT CPT-86662 Brigantine of cervix w bx ECC 13:32:50 CDT 10/19 CPT-J1885 Toradol 60 mg (Ketorolac) 15:31:59 CDT 2011 CPT-J1885 Toradol 60 mg (Ketorolac) 15:23:54 CDT 2011 CPT-60989 Visit 11:34:37 OTHER WOOD PROCESSING MACHINE OPERATOR CPT-13973 Visit 10:52:39 OTHER WOOD PROCESSING MACHINE OPERATOR CPT-88206 Visit 10:12:02 OTHER WOOD PROCESSING MACHINE OPERATOR CPT-07605 Visit 11:22:43 OTHER WOOD PROCESSING MACHINE OPERATOR CPT-85710 Visit 11:24:12 OTHER WOOD PROCESSING MACHINE OPERATOR CPT-23227 Visit 10:47:05 OTHER WOOD PROCESSING MACHINE OPERATOR CPT-OV Office Visit 10:26:16 OTHER WOOD PROCESSING MACHINE OPERATOR CPT-OV Office Visit 15:34:31 OTHER WOOD PROCESSING MACHINE OPERATOR CPT-61084 Visit 10:42:08 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
--- OUTSIDE RECORDS SUMMARY | 2020-01-18 16:35 | XMS REPORT | Clinical Summary ---
Author Author Admin, Jeri Rashid Organization [employer] Address Unknown Phone Unavailable Allergies, Adverse Reactions, Alerts Allergy Name Reaction Description Start Date Severity Status Pr ovider SULFA Critical Active Jillina Frazel l REMOTE PILOT OPERATOR TORADOL Rash Severe Active Rajni Yokjagjit [place] RN BACTRIM Critical Active Kalpesh Dong MD ZITHROMAX rash all over Critical Active Darya H aubrey LATEX rash Moderate Active Daryamikhail Ramseyk man Conditions or Problems Problem Name Problem Code Onset Date Status Entry Date Provider Comment Standard Description Annotate , INCIDENTAL PROBLEM V22.2 Resolved 07/20 Abdirahman iRos MD state, incidental LARGE FOR GESTATIONAL AGE [...] MD Acute sinusitis, unspecified Hidradenitis 705.83 Active Hria Moser APRN Hidradenitis AFTERCARE FOLLOW SURGERY SKIN&SUBCUT [...] at surgical incision 782.0 Active Hira Moser REMOTE PILOT OPERATOR Disturbance of skin sensation , INCIDENTAL PROBLEM [...] EXT CREA apply tid, prn LIDOCAIN E-PRILOCAINE 89194108305 Active Jillina Frajalenl REMOTE PILOT OPERATOR Active PERCOCET 5-325 MG TAB 1 tab po q 6 hours, prn OXYCODONE-ACETAMINOPHEN 37971066500 Active Jillina Frajalenl REMOTE PILOT OPERATOR Active [id number] 50-325-40 MG ORAL TABS 1 po TID PRN Headaches [id number] 33590549845 No Longer Active Jillina Karmenl REMOTE PILOT OPERATOR Active GLYDO 2 % EXT GEL apply to painful areas as needed 201 12/10/13 LIDOCAINE HCL 76899581591 No Longer Active Jillina Karmenl REMOTE PILOT OPERATOR Ac tive PERCOCET 10-325 MG ORAL TABS 1 every 4 hous as needed OXYCODONE-ACETAMINOPHEN 64692453421 No Longer Active Jillina Karmenl REMOTE PILOT OPERATOR Active LC-4 LIDOCAINE 4 % EXT CREA apply to painful area every 12 h ours or as needed LIDOCAINE 32039870427 No Longer Active Jillina Fra janee REMOTE PILOT OPERATOR Active CHANTIX STARTING MONTH MARGARITA 0.5 MG X 11 & 1 MG X 42 TAB S 0.5mg daily for 3 days, then 0.5mg BID for 4 days, then 1mg BID VARENICL INE TARTRATE 59665241220 Active Abdirahman Rios MD Active AMOXICILLIN 500 MG CAPS 2 po BID x 10 days AMOX ICILLIN 69141602139 No Longer Active Abdirahman Rios MD Active PROMETHAZINE HCL 25 MG TABS 1 four times a day as needed for nausea/vomiting PROMETHAZINE HCL 87911888837 No Longer Active Abdirahman Rios MD Active LC-4 LIDOCAINE 4 % EXT CREA apply q 6 hours, prn 08/03 LIDOCAINE 36567317954 No Longer Active Kalpesh Dong MD Active PERCOCET 10-325 MG TABS 1 tablet every 8 hours as needed for antonia n OXYCODONE-ACETAMINOPHEN 66273552816 No Longer Active Kalpesh Dong MD Active HYDROCODONE-ACETAMINOPHEN 5-325 MG TABS 1 tab by mouth every 6 hours as needed for pain HYDROCODONE-ACETAMINOPHEN 30649586378 No Longer Active Kalpesh Dong MD Active AUGMENTIN 875-125 MG TAB 1 tab by mouth twice daily with food 20 23/05/16 AMOXICILLIN-POT CLAVULANATE 20862298851 No Longer Active Lizeth hi Yokum REMOTE PILOT 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 FLUTICASONE PROPIONATE 58089082370 No Longer Ac tive Rajni Yokum REMOTE PILOT OPERATOR Active PERCOCET 10-325 MG ORAL TABS take 1 tab by mouth q 4hours as needed for pain OXYCODONE-ACETAMINOPHEN 06981178160 No Longer Active Rajni Yokum REMOTE PILOT OPERATOR Active PERCOCET 10-325 MG ORAL TABS one every 6 hours prn pain OXYCODONE-ACETAMINOPHEN 39558537248 No Longer Active Rajni Yokum REMOTE PILOT OPERATOR Active IBUPROFEN 800 MG TABS 1 tab po tid, with food I BUPROFEN 79643644502 Active Jillina Frazell REMOTE PILOT OPERATOR Active DICLOFENAC SODIUM 50 MG TBEC 1 tablet by mouth four times da tom PRN Pain DICLOFENAC SODIUM 26963471017 No Longer Active Rajni Yokum REMOTE PILOT OPERATOR Active VIIBRYD 10 & 20 & 40 MG KIT 1 po qd as directed 07/24 VILAZODONE HCL 92078105277 No Longer Active Rajni Yokum REMOTE PILOT OPERATOR Active ONDANSETRON 4 MG TBDP 1 q4h PRN nausea ONDANSET KELBY 20242763238 No Longer Active Rajni Yoyanaum REMOTE PILOT OPERATOR Active PERCOCET 10-325 MG TABS 1 tablet every 8 hours as needed for antonia n OXYCODONE-ACETAMINOPHEN 18322280983 No Longer Active Rajni cox REMOTE PILOT OPERATOR Active HYDROCODONE-ACETAMINOPHEN 5-325 MG TABS 1 po TID PRN Pain 9 HYDROCODONE-ACETAMINOPHEN 31881941247 No Longer Active Abdirahman Rios MD Active [id number] 50-325-40 MG ORAL CAPS 1-2 po TID OK N Headache [id number]-[id number]-[id number] 09717601949 No Longer Act krishna Kalpesh Dong MD Active ALPRAZOLAM 0.5 MG TABS 1 po BID PRN Anxiety ALP RAZOLAM 39471601540 No Longer Active Kalpesh Dong MD Active TRAZODONE HCL 100 MG TAB 0.5 to 1 po qHS PRN Insomnia TRAZODONE HCL 65825145520 No Longer Active Kalpesh Dong MD Activ e HYDROCODONE-ACETAMINOPHEN 5-325 MG TABS 1 po q6hr PRN Pain 04/09 HYDROCODONE-ACETAMINOPHEN 99435559149 No Longer Active Kalpesh Dong MD Active CYMBALTA 30 MG CPEP 1 cap by mouth daily DULOXE CLEO HCL 08939169700 No Longer Active Abdirahman Rios MD Active IBUPROFEN 600 MG ORAL TABS 1 by mouth twice a day 2014 IBUPROFEN 37304844679 No Longer Active Abdirahman Rios MD Activ e PERCOCET 5-325 MG TAB 1 tab po q 6 hours, prn severe pain 1 OXYCODONE-ACETAMINOPHEN 71775449370 No Longer Active Abdirahman Rios MD Active SPRINTEC 28 0.25-35 MG-MCG TABS 1 pill by mouth daily for bi rth control NORGESTIMATE-ETH ESTRADIOL 16035394265 No Longer Acti ve Matthewllina Joyzell REMOTE PILOT OPERATOR Active CYCLOBENZAPRINE HCL 10 MG TABS 1 tablet by mouth three times daily as needed for muscle spasm/pain CYCLOBENZAPRINE HCL 03114977256 No Longer Active Jillina Frazell REMOTE PILOT OPERATOR Active HYDROCODONE-ACETAMINOPHEN 5-325 MG TABS 1 po q6hr PRN Pain 03/09 HYDROCODONE-ACETAMINOPHEN 84575942393 No Longer Active Matthewllina Joyzel l REMOTE PILOT OPERATOR Active AUGMENTIN 500-125 MG ORAL TABS 1 by mouth twice a day AMOXICILLIN-POT CLAVULANATE 80239823099 No Longer Active Jillina Frazell REMOTE PILOT OPERATOR Active DICLOFENAC SODIUM 50 MG TBEC 1 tablet by mouth four times da tom PRN Pain DICLOFENAC SODIUM 64157091141 No Longer Active Jillin a Karmenl REMOTE PILOT OPERATOR Active PROMETHAZINE HCL 25 MG TABS 1 four times a day as needed for nausea/vomiting PROMETHAZINE HCL 07661556341 No Longer Active Abdirahman Rios MD Active HYDROCODONE-ACETAMINOPHEN 5-325 MG TABS 1 tab by mouth every 6 hours as needed PRN Pain HYDROCODONE-ACETAMINOPHEN 83218889264 No Longer Active Abdirahman Rios MD Active GEMFIBROZIL 600 MG TABS 1 po BID GEMFIBROZIL 06548803 005 Active Abdirahman Rios MD Active PERCOCET 5-325 MG ORAL TABS 1 every 6 hours as needed OXYCODONE-ACETAMINOPHEN 03865410573 No Longer Active Abdirahman Rios MD Active PERCOCET 5-325 MG TAB 1 tab po q 6 -8 hours, prn for severe pain OXYCODONE-ACETAMINOPHEN 78798080079 No Longer Active Abdirahman Rios MD Active HYDROCODONE-ACETAMINOPHEN 5-325 MG TABS 1 po q6hr PRN pain 06/30 HYDROCODONE-ACETAMINOPHEN 30559979238 No Longer Active Hira roman REMOTE PILOT OPERATOR Active GLUCOPHAGE 500 MG ORAL TABS one by mouth 3 times a day METFORMIN HCL 07875664678 No Longer Active Karenina Shanti REMOTE PILOT OPERATOR Ac tive PERCOCET 10-325 MG TABS 1 tab by mouth every 6 hours , use sparingly for severe pain OXYCODONE-ACETAMINOPHEN 68907953712 No Longer A ctive Abdirahman Rios MD Active EMLA 2.5-2.5 % EXT CREA apply to skin lesion q 6 hours, prn 2014 LIDOCAINE-PRILOCAINE 38221655893 No Longer Active Abdirahman Rios MD Active PERCOCET 10-325 MG ORAL TABS 1 every 4 hours as needed OXYCODONE-ACETAMINOPHEN 92196886369 No Longer Active Abdirahman Rios MD Active AUGMENTIN 875-125 MG TAB 1 tab by mouth twice daily with food 20 21/10/13 AMOXICILLIN-POT CLAVULANATE 63740458325 No Longer Active Ursula Moser APRN Active PROAIR HFA 108 (90 BASE) MCG/ACT AERS 2 puff q 4-6 hrs PRN 01/24 ALBUTEROL SULFATE 34716548193 No Longer Active Kalpesh Dong MD Active PREDNISONE 20 MG TAB 2 tabs daily for 3 days, 1 t ab daily for 3 days, 1/2 tab daily for 2 days PREDNISONE 96179985537 No Longer Active Abdirahman Rios MD Active KEFLEX 500 MG CAP 1 po qid CEPHALEXIN 897482981 20 No Longer Active Kalpesh Dong MD Active PERCOCET 5-325 MG TAB 1 every 6 hours as needed OXYCODONE-ACETAMINOPHEN 65398227347 No Longer Active Shola MCGILL Active LC-5 LIDOCAINE 5 % CREA apply 1 time daily to affected area 2013 LIDOCAINE (ANORECTAL) 51527182647 No Longer Active Jillina F razell REMOTE PILOT OPERATOR Active HYDROCODONE-ACETAMINOPHEN 10-325 MG TABS 1 by mouth ev chaka 8 hours as needed for pain HYDROCODONE-ACETAMINOPHEN 44400427480 No Longer Active Jillina Joyzell REMOTE PILOT OPERATOR Active LORATADINE 10 MG TABS 1 tablet by mouth daily L ORATADINE 01006984614 No Longer Active Jillina Frazell REMOTE PILOT OPERATOR Active DIFLUCAN 150 MG TAB 1 qODay x 2 doses FLUCONAZO LE 49623464413 No Longer Active Jillina Frazell REMOTE PILOT OPERATOR Active CYCLOBENZAPRINE HCL 10 MG TABS 1/2 - 1 tab PO tid PRN back p ain, muscle spasm CYCLOBENZAPRINE HCL 67265420557 No Longer Active Karen herson Frazell REMOTE PILOT OPERATOR Active AUGMENTIN 875-125 MG TAB 1 tab by mouth twice daily with food 20 22/05/07 AMOXICILLIN-POT CLAVULANATE 67193146166 No Longer Active Loida Rios MD Active MOBIC 15 MG TABS 1 tab daily MELOXICAM 228108048 14 No Longer Active Abdirahman Rios MD Active PERCOCET 7.5-325 MG TABS 1 PO tid PRN pain OXYCODONE-ACETAMINOPHEN 64368566853 No Longer Active Abdirahman Rios MD Active LIDODERM 5 % PTCH One patch to painful area [place] N. On for 12 hrs, off for 12 hrs. LIDOCAINE 84347370160 No Longer Active Abdirahman Rios MD Active PERCOCET 7.5-325 MG TABS 1 PO q 8 hrs PRN pain OXYCODONE-ACETAMINOPHEN 16378886342 No Longer Active Shola MCGILL Active HYDROCODONE-ACETAMINOPHEN 7.5-325 MG TABS 1 by mouth e very 6 hours as needed for pain HYDROCODONE-ACETAMINOPHEN 81860309668 No Longer Active Good Julian MD Active CLINDAMYCIN HCL 300 MG CAPS 1 po QID x 7 days CLINDAMYCIN HCL 18548998764 No Longer Active Abdirahman Rios MD Activ e BACTRIM DS 800-160 MG TABS 1 po BID x 7 days 5 SULFAMETHOXAZOLE-TRIMETHOPRIM 89148177671 No Longer Active Abdirahman Rios MD Active ENDOCET 10-325 MG TABS 1 q 6 hr prn OXYCODONE-ACETAMINOPHEN 61702064838 No Longer Active Abdirahman Rios MD Active IBUPROFEN 800 MG TABS 1 tid prn IBUPROFEN 139561 14272 No Longer Active Abdirahman Rios MD Active BACTRIM DS 800-160 MG TABS by mouth twice a day 11/05 SULFAMETHOXAZOLE-TRIMETHOPRIM 55038479287 No Longer Active Good Julian MD Active HYDROCODONE-ACETAMINOPHEN 7.5-325 MG TABS 1 four times a day as needed for pain HYDROCODONE-ACETAMINOPHEN 88518410747 No Longer Activ e Good Julian MD Active KEFLEX 500 MG CAP 1 tab po tid CEPHALEXIN 195178 45670 No Longer Active Hira Moser APRN Active IBUPROFEN 800 MG TAB 1 pill three times daily as needed for pain IBUPROFEN 25924965866 No Longer Active Kalpesh Dong MD Active PROMETHAZINE-CODEINE 6.25-10 MG/5ML SYRP 1 tsp every 6 hrs prn c ough PROMETHAZINE-CODEINE 66675399793 No Longer Active Kalpesh Carr Active HYDROCODONE-ACETAMINOPHEN 5-325 MG TABS 1 tab by mouth every 6 hours as needed HYDROCODONE-ACETAMINOPHEN 83887252674 No Longer Activ e Shola MCGILL Active CEPHALEXIN 500 MG CAPS 1 PO bid x 7 days CEPHAL EXIN 18214027564 No Longer Active Shola MCGILL Active BACTRIM DS 800-160 MG TAB 1 tab by mouth twice daily 2 TRIMETHOPRIM-SULFAMETHOXAZOLE 58678400351 No Longer Active Kalpesh Dong MD Active HYDROCODONE-ACETAMINOPHEN 5-325 MG TABS 1 PO tid PRN pain 5 HYDROCODONE-ACETAMINOPHEN 47318901766 No Longer Active Abhinav Galvan MD Active IMPLANON 68 MG IMPL IMPLANTED IN LEFT ARM ETONO GESTREL 18232199431 No Longer Active Hira Moser APRN Active AMOXICILLIN 500 MG TABS 2 tabs PO bid x 10 d AM OXICILLIN 87939495343 No Longer Active Kalpesh Dong MD Active LEVAQUIN 500 MG TABS 1 PO q day x 7 days LEVOFL OXACIN 70766677773 No Longer Active Shola MCGILL Active AMITRIPTYLINE HCL 25 MG TAB 1 tab by mouth daily 60 minutes before bedtime AMITRIPTYLINE HCL 98277295283 No Longer Active Shola MCGILL Active LORTAB 5 5-500 MG TABS 1/2 to 1 tablet by mouth go ry 6 hours as needed for pain HYDROCODONE-ACETAMINOPHEN 60271958720 No Longer Active Shola MCGILL Active CEPHALEXIN 500 MG TABS Take one by mouth four times daily, morning, noon, early evening and bedtime. CEPHALEXIN 14229121899 No Long er Active Hira Moser APRN Active TYLENOL/CODEINE #3 300-30 MG TAB 1-2 po q6hr PRN Pain ACETAMINOPHEN-CODEINE 94472388425 No Longer Active Edilberto Marino DO Active PRISTIQ 50 MG AT43D-MRH 1 po qd DESVENLAFAXI NE SUCCINATE 94871685140 No Longer Active Edilberto Marino DO Active PENICILLIN V POTASSIUM 500 MG TAB 1 four times a day 2 PENICILLIN V POTASSIUM 62989938107 No Longer Active Edilberto Marino DO Active DOXYCYCLINE HYCLATE 100 MG CAPS Take one (1) tablet by mouth twice a day DOXYCYCLINE HYCLATE 19455913776 No Longer Active Ronnie Galvan MD Active HYDROCODONE-ACETAMINOPHEN 5-325 MG TABS 1 po q 6hr PRN Pain 2011 HYDROCODONE-ACETAMINOPHEN 41920539031 No Longer Active Rosari joan Perez RN Active BACTRIM DS 800-160 MG TAB 1 tab by mouth twice daily 2 TRIMETHOPRIM-SULFAMETHOXAZOLE 80961103836 No Longer Active Kalpesh Dong MD Active LORTAB 5 5-500 MG TABS 1/2 to 1 tablet by mouth go ry 4 hours as needed for pain HYDROCODONE-ACETAMINOPHEN 98719063830 No Longer Active Kalpesh Dong MD Active GENERESS FE 0.8-25 MG-MCG CHEW Take one by mouth daily NORETHIN-ETH ESTRADIOL-FE 49851428868 No Longer Active Kalpesh Dong MD Active HYDROCODONE-ACETAMINOPHEN 7.5-500 MG TABS 1-2 every 4 hours as needed HYDROCODONE-ACETAMINOPHEN 96504724617 No Longer Activ e Kalpesh Dong MD Active FERROUS SULFATE 325 (65 FE) MG TABS 1 tablet by mouth twice yung y FERROUS SULFATE 25264840315 No Longer Active Kalpesh Dong MD Active IBUPROFEN 600 MG TAB 1 po q6-8hr PRN IBUPROFEN 55992738301 No Longer Active Kalpesh Dong MD Active SPIRONOLACTONE 25 MG TAB 1 tablet by mouth daily 01/22 SPIRONOLACTONE 20556762881 No Longer Active Kalpesh Dong MD Acti ve HYDROCODONE-ACETAMINOPHEN 7.5-325 MG TABS 1 po QID PRN Pain 2011 HYDROCODONE-ACETAMINOPHEN 15240051332 No Longer Active Kalpesh Dong MD Active CLINDAMYCIN HCL 300 MG CAPS 1 po q6hr x 7 days CLINDAMYCIN HCL 63817889549 No Longer Active Edilberto Marino DO Active PREDNISONE 20 MG TAB 2 tabs daily for 4 days, 1 t ab daily for 4 days, 1/2 tab daily for 4 days PREDNISONE 34164472650 No Longer Active Edilberto Marino DO Active PERCOCET 5-325 MG TABS 1 tablet by mouth every 6 hours as ne eded for pain OXYCODONE-ACETAMINOPHEN 23667849123 No Longer Active Abdirahman Rios MD Active VITAMINS TABS Take one by mouth daily MV & MIN W/FE-FA TABS 85253472589 No Longer Active Abdirahman Rios MD Active LUIS 3-0.02 MG TABS 1 tablet by mouth daily as directed DROSPIRENONE-ETHINYL ESTRADIOL 21573705831 No Longer Active Abdirahman Rios MD Active LORATADINE 10 MG TABS 1 tablet by mouth daily L ORATADINE 40792024492 No Longer Active Kalpesh Dong MD Active HYDROCODONE-ACETAMINOPHEN 5-325 MG TABS 1 po q 6hr PRN Pain 2010 HYDROCODONE-ACETAMINOPHEN 67378003868 No Longer Active Edilberto Marino DO Active BACTRIM DS 800-160 MG TAB 1 tab by mouth twice daily 2 TRIMETHOPRIM-SULFAMETHOXAZOLE 88613466799 No Longer Active Abdirahman Rios MD Active 28-0.8 MG TABS Take one by mouth daily 09/20 VIT-FE FUMARATE-FA 66212966667 No Longer Active Abdirahman Rios MD Active CIPRO 500 MG TAB 1 tablet by mouth twice daily CIPROFLOXACIN HCL 40619833552 No Longer Active Abdirahman Rios MD Active BENADRYL 25 MG CAP 1 po q8hr PRN Congestion DIPHENHYDRAMINE HCL 89040376530 No Longer Active Abdirahman Rios MD Active ZOLOFT 50 MG TAB 1 po qd SERTRALINE HCL 978480 99573 No Longer Active Abdirahman Rios MD Active AMOXICILLIN 875 MG TABS 1 tab by mouth twice daily 201 08/09/13 AMOXICILLIN 74229362812 No Longer Active Abdirahman Rios MD Activ e AMOXICILLIN 875 MG TABS 1 tab by mouth twice daily 201 07/19/27 AMOXICILLIN 51306876098 No Longer Active Abdirahman Rios MD Activ e BACTRIM DS 800-160 MG TAB 2 tab by mouth twice daily 2 TRIMETHOPRIM-SULFAMETHOXAZOLE 77277898539 No Longer Active Abdirahman Rios MD Active KEFLEX 500 MG CAP 1 po tid x 10 days CEPHALEXIN 87107852578 No Longer Active Abdirahman Rios MD Active AMOXICILLIN 875 MG TABS 1 tab by mouth twice daily 201 07/18/07 AMOXICILLIN 07374560352 No Longer Active Abdirahman Rios MD Activ e BACTRIM DS 800-160 MG TAB 2 tab by mouth twice daily 2 BACTRIM DS 800-160 MG TAB 936078 TRIMETHOPRIM-SULFAMETHOXAZOLE Inactive ZOLOFT 50 MG TAB 1 po qd ZOLOFT 50 MG TAB 3129 41 SERTRALINE HCL Inactive BENADRYL 25 MG CAP 1 po q8hr PRN Congestion BENADRYL 25 MG CAP 1556166 DIPHENHYDRAMINE HCL Inactive 28-0.8 MG TABS Take one by mouth daily 09/20 28-0.8 MG TABS VIT-FE FUMARATE-FA Inactive HYDROCODONE-ACETAMINOPHEN 5-325 MG TABS 1 po q 6hr PRN Pain 2010 HYDROCODONE-ACETAMINOPHEN 5-325 MG TABS 233449 HYDROCODONE-ACETAMINOPHEN Inactive LORATADINE 10 MG TABS 1 tablet by mouth daily LORATADINE 10 MG TABS 795513 LORATADINE Inactive LUIS 3-0.02 MG TABS 1 tablet by mouth daily as directed LUIS 3-0.02 MG TABS 004896 DROSPIRENONE-ETHINYL ESTRADIOL Inactive VITAMINS TABS Take one by mouth daily VITAMINS TABS MV & MIN W/FE-FA TABS Inactive PERCOCET 5-325 MG TABS 1 tablet by mouth every 6 hours as ne eded for pain PERCOCET 5-325 MG TABS 5648759 OXYCODONE-ACETAMIN OPHEN Inactive PREDNISONE 20 MG TAB 2 tabs daily for 4 days, 1 t ab daily for 4 days, 1/2 tab daily for 4 days PREDNISONE 20 MG TAB 845044 PREDNISON E Inactive CLINDAMYCIN HCL 300 MG CAPS 1 po q6hr x 7 days CLINDAMYCIN HCL 300 MG CAPS 956945 CLINDAMYCIN HCL Inactive HYDROCODONE-ACETAMINOPHEN 7.5-325 MG TABS 1 po QID PRN Pain 2011 HYDROCODONE-ACETAMINOPHEN 7.5-325 MG TABS 857797 HYDROCODONE-ACETAMINOPHEN Inactive SPIRONOLACTONE 25 MG TAB 1 tablet by mouth daily 01/22 SPIRONOLACTONE 25 MG TAB 019941 SPIRONOLACTONE Inactive IBUPROFEN 600 MG TAB 1 po q6-8hr PRN IBUPROFEN 600 MG TAB 866524 IBUPROFEN Inactive FERROUS SULFATE 325 (65 FE) MG TABS 1 tablet by mouth twice yung y FERROUS SULFATE 325 (65 FE) MG TABS 740107 FERROUS SULF ATE Inactive HYDROCODONE-ACETAMINOPHEN 7.5-500 MG TABS 1-2 every 4 hours as needed HYDROCODONE-ACETAMINOPHEN 7.5-500 MG TABS HYDROCODONE-ACETAMINOPHEN Inactive GENERESS FE 0.8-25 MG-MCG CHEW Take one by mouth daily GENERESS FE 0.8-25 MG-MCG CHEW [id number] NORETHIN-ETH ESTRADIOL-FE Inactive LORTAB 5 5-500 MG TABS 1/2 to 1 tablet by mouth go ry 4 hours as needed for pain LORTAB 5 5-500 MG TABS HYDROCODONE-A CETAMINOPHEN Inactive BACTRIM DS 800-160 MG TAB 1 tab by mouth twice daily 2 BACTRIM DS 800-160 MG TAB 847037 TRIMETHOPRIM-SULFAMETHOXAZOLE Inac tive HYDROCODONE-ACETAMINOPHEN 5-325 MG TABS 1 po q 6hr PRN Pain 2011 HYDROCODONE-ACETAMINOPHEN 5-325 MG TABS 447610 HYDROCODONE-ACETAMINOPHEN Inactive DOXYCYCLINE HYCLATE 100 MG CAPS Take one (1) tablet by mouth twice a day DOXYCYCLINE HYCLATE 100 MG CAPS 7477920 DOXYCYCLINE HYCLATE Inactive PENICILLIN V POTASSIUM 500 MG TAB 1 four times a day 2 PENICILLIN V POTASSIUM 500 MG TAB 081564 PENICILLIN V POTASSIUM [place] ctive PRISTIQ 50 MG [id number] 1 po qd PRISTIQ 50 MG [id number] DESVENLAFAXINE SUCCINATE Inactive TYLENOL/CODEINE #3 300-30 MG TAB 1-2 po q6hr PRN Pain TYLENOL/CODEINE #3 300-30 MG TAB 924190 ACETAMINOPHEN-CODEINE Inact krishna CEPHALEXIN 500 MG TABS Take one by mouth four times daily, morning, noon, early evening and bedtime. CEPHALEXIN 500 MG TABS 518294 CEPHALEXIN Inactive LORTAB 5 5-500 MG TABS 1/2 to 1 tablet by mouth go ry 6 hours as needed for pain LORTAB 5 5-500 MG TABS HYDROCODONE-A CETAMINOPHEN Inactive AMITRIPTYLINE HCL 25 MG TAB 1 tab by mouth daily 60 minutes before bedtime AMITRIPTYLINE HCL 25 MG TAB 624237 AMITRIPTYLINE HCL Inactive AMOXICILLIN 500 MG TABS 2 tabs PO bid x 10 d 7 AMOXICILLIN 500 MG TABS 651256 AMOXICILLIN Inactive IMPLANON 68 MG IMPL IMPLANTED IN LEFT ARM IMPLANON 68 MG IMPL ETONOGESTREL Inactive HYDROCODONE-ACETAMINOPHEN 5-325 MG TABS 1 PO tid PRN pain 5 HYDROCODONE-ACETAMINOPHEN 5-325 MG TABS 306019 HYDROCODONE-ACETAMIN OPHEN Inactive BACTRIM DS 800-160 MG TAB 1 tab by mouth twice daily 2 BACTRIM DS 800-160 MG TAB 241319 TRIMETHOPRIM-SULFAMETHOXAZOLE Inac tive CEPHALEXIN 500 MG CAPS 1 PO bid x 7 days CEPHALEXIN 500 MG CAPS 516061 CEPHALEXIN Inactive HYDROCODONE-ACETAMINOPHEN 5-325 MG TABS 1 tab by mouth every 6 hours as needed HYDROCODONE-ACETAMINOPHEN 5-325 MG TABS 196397 HYDROCODONE-ACETAMINOPHEN Inactive PROMETHAZINE-CODEINE 6.25-10 MG/5ML SYRP 1 tsp every 6 hrs prn c ough PROMETHAZINE-CODEINE 6.25-10 MG/5ML SYRP 436457 PROMETH AZINE-CODEINE Inactive IBUPROFEN 800 MG TAB 1 pill three times daily as needed for pain IBUPROFEN 800 MG TAB 577889 IBUPROFEN Inactive KEFLEX 500 MG CAP 1 tab po tid KEFLEX 500 MG CAP 977721 CEPHALEXIN Inactive HYDROCODONE-ACETAMINOPHEN 7.5-325 MG TABS 1 four times a day as needed for pain HYDROCODONE-ACETAMINOPHEN 7.5-325 MG TABS 190178 HYDROCODONE-ACETAMINOPHEN Inactive BACTRIM DS 800-160 MG TABS by mouth twice a day 11/05 BACTRIM DS 800-160 MG TABS 391696 SULFAMETHOXAZOLE-TRIMETHOPRIM Inactive IBUPROFEN 800 MG TABS 1 tid prn IBUPROFEN 800 MG TABS 563369 IBUPROFEN Inactive ENDOCET 10-325 MG TABS 1 q 6 hr prn ENDOC ET 10-325 MG TABS 2966277 OXYCODONE-ACETAMINOPHEN Inactive HYDROCODONE-ACETAMINOPHEN 7.5-325 MG TABS 1 by mouth e very 6 hours as needed for pain HYDROCODONE-ACETAMINOPHEN 7.5-325 MG TABS 532055 HYDROCODONE-ACETAMINOPHEN Inactive PERCOCET 7.5-325 MG TABS 1 PO q 8 hrs PRN pain PERCOCET 7.5-325 MG TABS 7403308 OXYCODONE-ACETAMINOPHEN Inactive LIDODERM 5 % PTCH One patch to painful area [place] N. On for 12 hrs, off for 12 hrs. LIDODERM 5 % [facility] 4167310 LIDOCAINE Inactiv e PERCOCET 7.5-325 MG TABS 1 PO tid PRN pain PERCOCET 7.5- 325 MG TABS 5460702 OXYCODONE-ACETAMINOPHEN Inactive MOBIC 15 MG TABS 1 tab daily MOBIC 15 MG TABS 15 2695 MELOXICAM Inactive CYCLOBENZAPRINE HCL 10 MG TABS 1/2 - 1 tab PO tid PRN back p ain, muscle spasm CYCLOBENZAPRINE HCL 10 MG TABS 707145 CYCLOBENZA JOSEPH HCL Inactive LORATADINE 10 MG TABS 1 tablet by mouth daily LORATADINE 10 MG TABS 712089 LORATADINE Inactive HYDROCODONE-ACETAMINOPHEN 10-325 MG TABS 1 by mouth ev chaka 8 hours as needed for pain HYDROCODONE-ACETAMINOPHEN 10-325 MG TABS 621863 HYDROCODONE-ACETAMINOPHEN Inactive LC-5 LIDOCAINE 5 % CREA apply 1 time daily to affected area 2013 LC-5 LIDOCAINE 5 % CREA 0794639 LIDOCAINE (ANORECTAL) In active PERCOCET 5-325 MG TAB 1 every 6 hours as needed PERCOCET 5-325 MG TAB 4199155 OXYCODONE-ACETAMINOPHEN Inactive KEFLEX 500 MG CAP 1 po qid KEFLEX 500 MG CAP 30 9114 CEPHALEXIN Inactive PROAIR HFA 108 (90 BASE) MCG/ACT AERS 2 puff q 4-6 hrs PRN 01/24 PROAIR HFA 108 (90 BASE) MCG/ACT AERS ALBUTEROL SULFATE Inactive PERCOCET 10-325 MG ORAL TABS 1 every 4 hours as needed PERCOCET 10-325 MG ORAL TABS [id number] OXYCODONE-ACETAMINOPHEN Inactiv e EMLA 2.5-2.5 % EXT CREA apply to skin lesion q 6 hours, prn 2014 EMLA 2.5-2.5 % EXT CREA [id number] LIDOCAINE-PRILOCAINE [place] ctive PERCOCET 10-325 MG TABS 1 tab by mouth every 6 hours , use sparingly for severe pain PERCOCET 10-325 MG TABS [id number] OXYCODONE-ACETAMINOPHEN Inactive GLUCOPHAGE 500 MG ORAL TABS one by mouth 3 times a day GLUCOPHAGE 500 MG ORAL TABS [id number] METFORMIN HCL Inactive HYDROCODONE-ACETAMINOPHEN 5-325 MG TABS 1 po q6hr PRN pain 06/30 HYDROCODONE-ACETAMINOPHEN 5-325 MG TABS [id number] HYDROCOD ONE-ACETAMINOPHEN Inactive PERCOCET 5-325 MG TAB 1 tab po q 6 -8 hours, prn for severe pain PERCOCET 5-325 MG TAB [id number] OXYCODONE-ACETAMINOPHEN In active PERCOCET 5-325 MG ORAL TABS 1 every 6 hours as needed PERCOCET 5-325 MG ORAL TABS [id number] OXYCODONE-ACETAMINOPHEN Inactive DICLOFENAC SODIUM 50 MG TBEC 1 tablet by mouth four times da tom PRN Pain DICLOFENAC SODIUM 50 MG TBEC [id number] DICLOFENAC S ODIUM Inactive AUGMENTIN 500-125 MG ORAL TABS 1 by mouth twice a day AUGMENTIN 500-125 MG ORAL TABS [id number] AMOXICILLIN-POT CLAVULANATE I nactive HYDROCODONE-ACETAMINOPHEN 5-325 MG TABS 1 po q6hr PRN Pain 03/09 HYDROCODONE-ACETAMINOPHEN 5-325 MG TABS [id number] HYDROCOD ONE-ACETAMINOPHEN Inactive CYCLOBENZAPRINE HCL 10 MG TABS 1 tablet by mouth three times daily as needed for muscle spasm/pain CYCLOBENZAPRINE HCL 10 MG TABS [id number] CYCLOBENZAPRINE HCL Inactive SPRINTEC 28 0.25-35 MG-MCG TABS 1 pill by mouth daily for bi rth control SPRINTEC 28 0.25-35 MG-MCG TABS [id number] NORGESTIMATE-ETH ESTRADIOL Inactive PERCOCET 5-325 MG TAB 1 tab po q 6 hours, prn severe pain PERCOCET 5-325 MG TAB [id number] OXYCODONE-ACETAMINOPHEN Inactive IBUPROFEN 600 MG ORAL TABS 1 by mouth twice a day 2014 IBUPROFEN 600 MG ORAL TABS [id number] IBUPROFEN Inactive CYMBALTA 30 MG CPEP 1 cap by mouth daily CYMBALTA 30 MG CPEP 918943 DULOXETINE HCL Inactive HYDROCODONE-ACETAMINOPHEN 5-325 MG TABS 1 po q6hr PRN Pain 04/09 HYDROCODONE-ACETAMINOPHEN 5-325 MG TABS 274611 HYDROCOD ONE-ACETAMINOPHEN Inactive TRAZODONE HCL 100 MG TAB 0.5 to 1 po qHS PRN Insomnia TRAZODONE HCL 100 MG TAB [id number] TRAZODONE HCL Inactive ALPRAZOLAM 0.5 MG TABS 1 po BID PRN Anxiety ALPRAZOLAM 0.5 MG TABS 155084 ALPRAZOLAM Inactive [id number] 50-325-40 MG ORAL CAPS 1-2 po TID OK N Headache [id number] 50-325-40 MG ORAL CAPS 2 73886 [id number]-[id number] Inactive HYDROCODONE-ACETAMINOPHEN 5-325 MG TABS 1 po TID PRN Pain 9 HYDROCODONE-ACETAMINOPHEN 5-325 MG TABS 495741 HYDROCODONE-ACETAMIN OPHEN Inactive PERCOCET 10-325 MG TABS 1 tablet every 8 hours as needed for antonia n PERCOCET 10-325 MG TABS 6741981 OXYCODONE-ACETAMINOPHEN Inactive ONDANSETRON 4 MG TBDP 1 q4h PRN nausea ON DANSETRON 4 MG TBDP 626101 ONDANSETRON Inactive VIIBRYD 10 & 20 & 40 MG KIT 1 po qd as directed 07/24 VIIBRYD 10 & 20 & 40 MG KIT VILAZODONE HCL Inactive DICLOFENAC SODIUM 50 MG TBEC 1 tablet by mouth four times da tom PRN Pain DICLOFENAC SODIUM 50 MG TBEC 069166 DICLOFENAC S ODIUM Inactive PERCOCET 10-325 MG ORAL TABS one every 6 hours prn pain PERCOCET 10-325 MG ORAL TABS [id number] OXYCODONE-ACETAMINOPHEN Inactiv e PERCOCET 10-325 MG ORAL TABS take 1 tab by mouth q 4hours as needed for pain PERCOCET 10-325 MG ORAL TABS 6489757 OXYCODONE-ACETAMINOPHEN Inactive FLONASE ALLERGY RELIEF 50 MCG/ACT NASAL SUSP One spray in each nostril twice a day. FLONASE ALLERGY RELIEF 50 MCG/ACT NASAL S MCC 161942 FLUTICASONE PROPIONATE Inactive AUGMENTIN 875-125 MG TAB 1 tab by mouth twice daily with food 20 23/05/16 AUGMENTIN 875-125 MG TAB 514984 AMOXICILLIN-POT [place] Inactive HYDROCODONE-ACETAMINOPHEN 5-325 MG TABS 1 tab by mouth every 6 hours as needed for pain HYDROCODONE-ACETAMINOPHEN 5-325 MG TABS 8 99678 HYDROCODONE-ACETAMINOPHEN Inactive PERCOCET 10-325 MG TABS 1 tablet every 8 hours as needed for antonia n PERCOCET 10-325 MG TABS [id number] OXYCODONE-ACETAMINOPHEN Inactive LC-4 LIDOCAINE 4 % EXT CREA apply q 6 hours, prn 08/03 LC-4 LIDOCAINE 4 % EXT CREA [id number] LIDOCAINE Inactive PROMETHAZINE HCL 25 MG TABS 1 four times a day as needed for nausea/vomiting PROMETHAZINE HCL 25 MG TABS 536999 PROMETHAZINE HCL Inactive LC-4 LIDOCAINE 4 % EXT CREA apply to painful area every 12 h ours or as needed LC-4 LIDOCAINE 4 % EXT CREA 8257159 LIDOCAINE Inactive PERCOCET 10-325 MG ORAL TABS 1 every 4 hous as needed PERCOCET 10-325 MG ORAL TABS 6380032 OXYCODONE-ACETAMINOPHEN Inactiv e GLYDO 2 % EXT GEL apply to painful areas as needed 201 12/10/13 GLYDO 2 % EXT GEL [id number] LIDOCAINE HCL Inactive FLWUADSTWO-OLFG-MBZDGDRE 50-325-40 MG ORAL TABS 1 po TID PRN Headaches YOUCWSPSIT-[id number]-AAWYVUSQ 50-325-40 MG ORAL TABS 259102 [id number]-[id number] Inactive AMOXICILLIN 875 MG TABS 1 tab by mouth twice daily 201 07/18/07 AMOXICILLIN 875 MG TABS 055342 AMOXICILLIN Inactive KEFLEX 500 MG CAP 1 po tid x 10 days KEFLEX 500 MG CAP 497916 CEPHALEXIN Inactive AMOXICILLIN 875 MG TABS 1 tab by mouth twice daily 201 07/19/27 AMOXICILLIN 875 MG TABS 040312 AMOXICILLIN Inactive AMOXICILLIN 875 MG TABS 1 tab by mouth twice daily 201 08/09/13 AMOXICILLIN 875 MG TABS 505772 AMOXICILLIN Inactive CIPRO 500 MG TAB 1 tablet by mouth twice daily CIPRO 500 MG TAB 348021 CIPROFLOXACIN HCL Inactive BACTRIM DS 800-160 MG TAB 1 tab by mouth twice daily 2 BACTRIM DS 800-160 MG TAB 993505 TRIMETHOPRIM-SULFAMETHOXAZOLE Inac tive LEVAQUIN 500 MG TABS 1 PO q day x 7 days LEVAQUIN 500 MG TABS 253044 LEVOFLOXACIN Inactive CLINDAMYCIN HCL 300 MG CAPS 1 po QID x 7 days CLINDAMYCIN HCL 300 MG CAPS 375136 CLINDAMYCIN HCL Inactive AUGMENTIN 875-125 MG TAB 1 tab by mouth twice daily with food 20 22/05/07 AUGMENTIN 875-125 MG TAB 063127 AMOXICILLIN-POT [place] Inactive DIFLUCAN 150 MG TAB 1 qODay x 2 doses DIFLUCAN 150 MG TAB 891716 FLUCONAZOLE Inactive PREDNISONE 20 MG TAB 2 tabs daily for 3 days, 1 t ab daily for 3 days, 1/2 tab daily for 2 days PREDNISONE 20 MG TAB 785479 PREDNISON E Inactive AUGMENTIN 875-125 MG TAB 1 tab by mouth twice daily with food 20 21/10/13 AUGMENTIN 875-125 MG TAB 985420 AMOXICILLIN-POT [place] Inactive HYDROCODONE-ACETAMINOPHEN 5-325 MG TABS 1 tab by mouth every 6 hours as needed PRN Pain HYDROCODONE-ACETAMINOPHEN 5-325 MG TABS 8 54280 HYDROCODONE-ACETAMINOPHEN Inactive PROMETHAZINE HCL 25 MG TABS 1 four times a day as needed for nausea/vomiting PROMETHAZINE HCL 25 MG TABS 133021 PROMETHAZINE HCL Inactive AMOXICILLIN 500 MG CAPS 2 po BID x 10 days AMOXICILLIN 500 MG CAPS 584283 AMOXICILLIN Inactive Advance Directives Directive Description Start Date PERMISSION TO SHARE Immunizations Vaccine Administration Date Value Standard Alf cription Seasonal influenza vaccine, injectable, containing preservative, for > 3 years old (Afluria, FluLaval, Fluzone, Fluvirin, Fluarix, Agriflu(>= 18 yo)) Fluzone (>3 yrs.) [[id number]] Influenza, seasonal, inject able Seasonal influenza vaccine, injectable, preservative free, for > 3 years old (Afluria, FluLaval, Fluzone, Fluvirin, Fluarix, Agriflu(>= 18 yo)) Fluzone preservative free (>3 yrs.) [[id number]] Influenza, seasonal, injectable, preservative free Seasonal influenza vaccine, injectable, containing preservative, for > 3 years old (Afluria, FluLaval, Fluzone, Fluvirin, Fluarix, Agriflu(>= 18 yo)) Fluzone (>3 yrs.) [[id number]] Influenza, seasonal, inject able Seasonal influenza vaccine, injectable, containing preservative, for > 3 years old (Afluria, FluLaval, Fluzone, Fluvirin, Fluarix, Agriflu(>= 18 yo)) Fluzone (>3 yrs.) [[id number]] Influenza, seasonal, inject able dT (Diphtheria and [...] 11 .6-14.8 platelet count 294 10^3/MM^3 10*3/mm3 433-727 2126/08/27 mean corpuscular hemoglobin, RBC 30.2 pg 27. 0-31.2 mean corpuscular volume, RBC 88 fL 80-97 hematocrit, blood 44.6 % 36.0-46.0 hemoglobin, blood 15.4 g/dL 12.0-16.0 erythrocyte (RBC) count 5.08 10^6/MM^3 10*6/mm3 4.04-5.4 8 Lab Report: CBC W/DIFF - Hematology neutrophils as percent of blood leukocytes 70.1 [...] 11 .6-14.8 platelet count 430 10^3/MM^3 10*3/mm3 038-032 2855/02/24 leukocyte count, blood 10.3 10^3/MM^3 10*3/mm3 4.6-10.2 Lab Report: Comp. Metabolic Panel, Thyro id Stimulating Hormone (L), MICR ... - Chemistry bilirubin, serum, total 0.20 mg/dL 0.00-1.00 TSH 1.46 m[iU]/mL 0.36-3.74 albumin/creatinine ratio, urine < 30 mg/g mg/g{creat} 0-2 9 sodium, serum 137 mmol/L 644-553 7036/02/24 carbon dioxide, venous blood 26.3 mmol/L 21.0-32 .0 potassium, serum 4.1 mmol/L 3.5-5.2 chloride, serum 101 mmol/L 98-107 blood glucose 87 mg/dL 65-110 urea nitrogen, blood 7 mg/dL 7-18 creatinine, serum 0.60 mg/dL 0.55-1.30 alanine aminotransferase (SGPT), serum 55 U/L 12-78 aspartate aminotransferase (SGOT), serum 26 U/L 15-37 calcium, serum 9.2 mg/dL 8.5-10.1 Lab Report: Comp. Metabolic Panel, Thyro id Stimulating Hormone (L), MICR ... - Lab microalbumin, urine 10 0-19 Lab Report: DNA (ds) ANTIBODIES - Hemato logy leukocyte count, blood <1 IU/mL 10*3/mm3 Lab Report: Lipid Panel - Chemistry cholesterol, serum 181 mg/dL [phone]/09/01 triglyceride, serum, fasting 341 mg/dL 30-200 HDL [...] negative Encounters Code Encounter Date Provider Facility CPT-97430 Level 3 Est. Patient 16:33:24 CDT Kalpesh goins MD [facility] CPT-21824 Level 3 Est. Patient 08:29:37 CDT Hira muniz [facility] CPT-39321 Level 3 Est. Patient 10:28:25 CDT Hira muniz [facility] CPT-24083 Level 4 Est. Patient 16:38:26 BUTTON FACING MACHINE OPERATOR Abdirahman Rios MD [facility]-01585 Level 3 Est. Patient 05:31:41 BUTTON FACING MACHINE OPERATOR Kalpesh goins MD [facility] CPT-02554 Level 3 Est. Patient 11:22:02 BUTTON FACING MACHINE OPERATOR Hira muniz [facility] CPT-95316 Level 3 Est. Patient 21:00:18 BUTTON FACING MACHINE OPERATOR Rajni danielson [facility] CPT-81413 Level 3 Est. Patient 14:15:00 BUTTON FACING MACHINE OPERATOR Kalpesh goins MD [facility] CPT-70412 Level 2 Est. Patient 19:57:52 BUTTON FACING MACHINE OPERATOR Rajni danielson [facility] CPT-19577 Level 3 Est. Patient 16:58:40 BUTTON FACING MACHINE OPERATOR Bj funes MD [facility] CPT-41926 Level 3 Est. Patient 08:51:33 CDT Kalpesh goins MD [facility] CPT-95315 Level 4 Est. Patient 14:14:53 CDT Abdirahman Rios MD [facility] CPT-91427 Level 3 Est. Patient 15:47:40 CDT Kalpesh goins MD [facility] CPT-83765 Level 3 Est. Patient 10:57:26 CDT Abdirahman Rios MD [facility] CPT-94965 Level 3 Est. Patient 14:29:53 CDT Abhinav Galvan MD [facility] CPT-58656 Level 2 Est. Patient 16:33:01 CDT Kalpesh goins MD [facility] CPT-64229 Level 4 Est. Patient 16:44:56 CDT Abdirahman Rios MD [facility] CPT-04712 Level 2 Est. Patient 07:49:32 CDT Kalpesh goins MD [facility] CPT-39793 Level 3 New Patient 15:47:11 BUTTON FACING MACHINE OPERATOR Bj huber MD [facility] CPT-68790 Level 4 Est. Patient 14:37:38 BUTTON FACING MACHINE OPERATOR Abdirahman Rios MD [facility] CPT-98743 Level 2 Est. Patient 13:32:17 BUTTON FACING MACHINE OPERATOR Kalpesh goins MD [facility] CPT-06117 Level 3 Est. Patient 17:32:57 BUTTON FACING MACHINE OPERATOR Edilberto tiwari [facility] CPT-91706 Level 3 Est. Patient 17:22:33 BUTTON FACING MACHINE OPERATOR Edilberto tiwari [facility] CPT-54766 Level 2 Est. Patient 16:57:09 BUTTON FACING MACHINE OPERATOR Kalpesh goins MD [facility] CPT-16127 Level 3 Est. Patient 14:03:08 BUTTON FACING MACHINE OPERATOR Abdirahman Rios MD [facility] CPT-75653 Level 3 Est. Patient 18:12:34 CDT Shola Wright [facility] CPT-54295 Level 3 Est. Patient 19:34:46 CDT Shola Wright [facility] CPT-39334 Level 3 Est. Patient 14:19:37 CDT Abdirahman Rios MD [facility] CPT-88918 Level 3 Est. Patient 14:11:58 CDT Kalpesh goins MD [facility] CPT-46732 Level 3 Est. Patient 16:50:00 CDT Michelle BRADFORDP [facility] CPT-22483 Level 3 Est. Patient 17:11:32 BUTTON FACING MACHINE OPERATOR Brandie bates MD PhD [facility] CPT-38522 Level 3 Est. Patient 16:31:47 BUTTON FACING MACHINE OPERATOR Shola Wright [facility] CPT-56215 Level 3 Est. Patient 17:51:10 BUTTON FACING MACHINE OPERATOR Abhinav Galvan MD [facility] CPT-57959 Level 4 Est. Patient 12:54:56 BUTTON FACING MACHINE OPERATOR Kalpesh goins MD [facility]-20330 Level 4 Est. Patient 12:53:56 BUTTON FACING MACHINE OPERATOR Kalpesh goins MD [facility] CPT-07934 Level 3 Est. Patient 17:56:58 CDT Shola Wright [facility] CPT-96969 Level 3 Est. Patient 14:26:20 CDT Janak butcher [facility] CPT-06834 Level 3 Est. Patient 09:38:41 CDT Shola Wright [facility] CPT-47159 Level 3 Est. Patient 14:45:26 CDT Edilberto tiwari [facility] CPT-90372 Level 3 Est. Patient 10:51:33 CD[facility] Level 3 Est. Patient 11:57:55 BUTTON FACING MACHINE OPERATOR Shola Wright [facility] CPT-67007 Level 3 Est. Patient 09:53:33 BUTTON FACING MACHINE OPERATOR Edilberto tiwari [facility] CPT-21187 Level 3 Est. Patient 14:42:54 BUTTON FACING MACHINE OPERATOR Abhinav Galvan MD [facility]-17106 Level 3 Est. Patient 15:10:02 CDT Janak MCGILL [facility] CPT-19354 Level 3 Est. Patient 15:20:20 CDT Theo dennis MD [facility] CPT-24534 Level 2 Est. Patient 14:08:57 CDT Kalpesh goins MD [facility] CPT-53472 Level 3 Est. Patient 13:56:19 CDT Abdirahman Rios MD [facility] CPT-81195 Level 3 Est. Patient 13:59:37 CDT Abdirahman Rios MD [facility] CPT-00758 Level 2 Est. Patient 14:44:59 CDT Kalpesh goins MD [facility] CPT-10203 Level 3 Est. Patient 06:06:23 CDT Edilberto tiwari DO [facility] CPT-03059 Level 3 Est. Patient 15:23:54 CDT Abdirahman Rios MD [facility] CPT-46127 Level 3 Est. Patient 15:43:49 CDT Abdirahman Rios MD [facility] CPT-05092 Level 3 Est. Patient 12:46:47 BUTTON FACING MACHINE OPERATOR Abdirahman Rios MD [facility] CPT-49501 Level 3 Est. Patient 08:13:35 BUTTON FACING MACHINE OPERATOR Abdirahman Rios MD [facility] CPT-05310 Level 2 Est. Patient 09:36:42 BUTTON FACING MACHINE OPERATOR Abdirahman Rios MD [facility] CPT-49853 Level 3 Est. Patient 10:56:43 CDT Abdirahman Rios MD [facility] CPT-97856 Level 3 Est. Patient 18:24:52 CDT Abdirahman Rios MD [facility] CPT-71656 Level 3 Est. Patient 13:27:22 CDT Abdirahman Rios MD [facility] Procedures Code Procedure Name Date Entry Date Standard Desc ription CPT-17446 Postop F/U Visit 16:21:51 BUTTON FACING MACHINE OPERATOR CPT-96876 Postop F/U Visit 17:09:41 BUTTON FACING MACHINE OPERATOR CPT-44160 Postop F/U Visit 14:08:43 BUTTON FACING MACHINE OPERATOR CPT-06789 Postop F/U Visit 15:18:16 BUTTON FACING MACHINE OPERATOR CPT-21548 Postop F/U Visit 15:03:49 BUTTON FACING MACHINE OPERATOR CPT-22780 Postop F/U Visit 14:45:23 BUTTON FACING MACHINE OPERATOR CPT-34921 Postop F/U Visit 14:11:03 BUTTON FACING MACHINE OPERATOR CPT-96516 Postop F/U Visit 18:21:21 BUTTON FACING MACHINE OPERATOR CPT-93247 Postop F/U Visit 15:57:12 BUTTON FACING MACHINE OPERATOR CPT-27763 Bladder Instillation 16:58:41 BUTTON FACING MACHINE OPERATOR 6 CPT-15866 Fluzone Quadrivalent Intramuscular Suspe nsion 0.5 ML 15:20:56 BUTTON FACING MACHINE OPERATOR CPT-86288 Immunization Single Admin 15:20:56 BUTTON FACING MACHINE OPERATOR 2014 CPT-49688 Excis pilonidal cyst simple 08:51:34 CDT 20 22/04/20 CPT-05325 Venipuncture Draw Fee 14:27:29 CDT CPT-32876 Postop F/U Visit 15:27:43 CDT CPT-86072 Postop F/U Visit 14:40:59 CDT CPT-71035 Postop F/U Visit 15:02:46 CDT CPT-68230 Postop F/U Visit 11:29:00 BUTTON FACING MACHINE OPERATOR CPT-J0696 Rocephin 1000 mg (Ceftriaxone) 17:22:33 BUTTON FACING MACHINE OPERATOR CPT-16756 Postop F/U Visit 18:41:07 BUTTON FACING MACHINE OPERATOR CPT-74882 Postop F/U Visit 08:19:08 BUTTON FACING MACHINE OPERATOR CPT-83354 Immunization Single Admin 16:41:53 CDT 2013 CPT-39091 Fluzone Quadrivalent Intramuscular Suspe nsion 0.5 ML 16:41:53 CDT CPT-OV Office Visit 16:39:18 CDT CPT-OV Office Visit 16:16:36 CDT CPT-OV Office Visit 15:34:48 CDT CPT-14607 Postop F/U Visit 14:50:12 CDT CPT-98765 Postop F/U Visit 14:41:10 CDT CPT-87817 Venipuncture Draw Fee 11:38:04 BUTTON FACING MACHINE OPERATOR CPT-91899 Postop F/U Visit 19:02:59 BUTTON FACING MACHINE OPERATOR CPT-21524 Postop F/U Visit 12:04:54 BUTTON FACING MACHINE OPERATOR CPT-16044 Administration single or combination vac cine inc oral 15:56:43 CDT CPT-74165 Influenza split virus > age 3 15:56:43 CDT CPT-59253 Hand comp min 3V 14:25:19 CDT CPT-98795 Postop F/U Visit 21:40:51 CDT CPT-89821 Postop F/U Visit 10:58:43 CDT CPT-55260 Administration single or combination vac cine inc oral 12:33:54 BUTTON FACING MACHINE OPERATOR CPT-20129 Influenza Preservative Free split virus >age 3 12:33:54 BUTTON FACING MACHINE OPERATOR CPT-26135 Administration single or combination vac cine inc oral 09:30:51 CDT CPT-92522 Influenza split virus > age 3 09:30:51 CDT CPT-13604 Postop F/U Visit 15:14:53 CDT CPT-74133 Postop F/U Visit 13:50:14 CDT CPT-67077 Postop F/U Visit 13:34:52 CDT CPT-OV Office Visit 16:55:03 CDT CPT-96330 Moody of cervix w bx ECC 13:32:50 CDT 10/19 CPT-J1885 Toradol 60 mg (Ketorolac) 15:31:59 CDT 2011 CPT-J1885 Toradol 60 mg (Ketorolac) 15:23:54 CDT 2011 CPT-09948 Visit 11:34:37 BUTTON FACING MACHINE OPERATOR CPT-15371 Visit 10:52:39 BUTTON FACING MACHINE OPERATOR CPT-10704 Visit 10:12:02 BUTTON FACING MACHINE OPERATOR CPT-91970 Visit 11:22:43 BUTTON FACING MACHINE OPERATOR CPT-16471 Visit 11:24:12 BUTTON FACING MACHINE OPERATOR CPT-54008 Visit 10:47:05 BUTTON FACING MACHINE OPERATOR CPT-OV Office Visit 10:26:16 BUTTON FACING MACHINE OPERATOR CPT-OV Office Visit 15:34:31 BUTTON FACING MACHINE OPERATOR CPT-37895 Visit 10:42:08 BUTTON FACING MACHINE OPERATOR CPT-85398 Visit 10:52:45 BUTTON FACING MACHINE OPERATOR CPT-000 Give Appropriate Flu Vaccine 16:56:41 CDT 2 CPT-80989 Administration single or combination vac cine inc oral 10:33:21 CDT CPT-18526 Influenza split virus > age 3 10:33:21 CDT CPT-04229 Visit 13:23:09 CDT CPT-19486 Visit 18:24:52 CDT CPT-53742 Sono OB comp > 14 weeks 12:07:49 CDT 04/07
--- OUTSIDE RECORDS SUMMARY | 2020-01-18 16:36 | XMS REPORT | Clinical Summary ---
[...] RESPIRATORY INFECTION (URI) 465.9 Resolved 20 20/10/29 Godo Julian MD Acute upper respiratory infections of [...] NEC Abscess, perirectal 566 Active Hira roman PUMP TECHNICIAN Abscess of anal and rectal regions [...] 1 by mouth twice a day IBUPROFEN 68902373184 Active ERNIE Higuera Active PERCOCET 10-325 MG TABS 1 tab by mouth every 6 hours , use sparingly for severe pain OXYCODONE-ACETAMINOPHEN 76462611666 Active Hira Moser APRN Active TRAZODONE HCL 100 MG TAB 0.5 to 1 po qHS PRN Insomnia TRAZODONE HCL 78320830647 Active Abdirahman Rios MD Active CYMBALTA 30 MG CPEP 1 cap by mouth daily DULOXE CLEO HCL 51611937157 Active Abdirahman Rios MD Active EMLA 2.5-2.5 % EXT CREA apply to skin lesion q 6 hours, prn 2014 LIDOCAINE-PRILOCAINE 08380135810 No Longer Active Abdirahman Rios MD Active HYDROCODONE-ACETAMINOPHEN 5-325 MG TABS 1 po q6hr PRN pain HYDROCODONE-ACETAMINOPHEN 54381014283 Active Abdirahman Rios MD Active PERCOCET 10-325 MG ORAL TABS 1 every 4 hours as needed OXYCODONE-ACETAMINOPHEN 68433521285 No Longer Active Abdirahman Rios MD Active [id number] 50-325-40 MG ORAL CAPS 1-2 po TID [place] N Headache [id number] 35273350934 Active Abdirahman Rios MD Active AUGMENTIN 875-125 MG TAB 1 tab by mouth twice daily with food 20 21/10/13 AMOXICILLIN-POT CLAVULANATE 63528702195 No Longer Active Ursula Moser APRN Active PROAIR HFA 108 (90 BASE) MCG/ACT AERS 2 puff q 4-6 hrs PRN 01/24 ALBUTEROL SULFATE 52445823545 No Longer Active Kalpesh Dong MD Active ALPRAZOLAM 0.5 MG TABS 1 po BID PRN Anxiety ALPRA ZOLAM 15221536240 Active Abdirahman Rios MD Active CYCLOBENZAPRINE HCL 10 MG TABS 1 tablet by mouth three times daily as needed for muscle spasm/pain CYCLOBENZAPRINE HCL 31019379349 Active Abdirahman Rios MD Active PREDNISONE 20 MG TAB 2 tabs daily for 3 days, 1 t ab daily for 3 days, 1/2 tab daily for 2 days PREDNISONE 66244963700 No Longer Active Abdirahman Rios MD Active KEFLEX 500 MG CAP 1 po qid CEPHALEXIN 783403895 20 No Longer Active Kalpesh Dong MD Active PERCOCET 5-325 MG TAB 1 every 6 hours as needed OXYCODONE-ACETAMINOPHEN 67923943319 No Longer Active Shola MCGILL Active LC-5 LIDOCAINE 5 % CREA apply 1 time daily to affected area 2013 LIDOCAINE (ANORECTAL) 49978873451 No Longer Active Hira muniz APRN Active HYDROCODONE-ACETAMINOPHEN 10-325 MG TABS 1 by mouth ev chaka 8 hours as needed for pain HYDROCODONE-ACETAMINOPHEN 29633443321 No Longer Active Hira Moser APRN Active LORATADINE 10 MG TABS 1 tablet by mouth daily L ORATADINE 84848283578 No Longer Active Jillherson Perazal PUMP TECHNICIAN Active DIFLUCAN 150 MG TAB 1 qODay x 2 doses FLUCONAZO LE 53444184614 No Longer Active Matthewllherson Moser PUMP TECHNICIAN Active CYCLOBENZAPRINE HCL 10 MG TABS 1/2 - 1 tab PO tid PRN back p ain, muscle spasm CYCLOBENZAPRINE HCL 42528882336 No Longer Active Karen herson Frazell PUMP TECHNICIAN Active AUGMENTIN 875-125 MG TAB 1 tab by mouth twice daily with food 20 22/05/07 AMOXICILLIN-POT CLAVULANATE 17071161480 No Longer Active Loida Rios MD Active MOBIC 15 MG TABS 1 tab daily MELOXICAM 237917989 14 No Longer Active Abdirahman Rios MD Active PERCOCET 7.5-325 MG TABS 1 PO tid PRN pain OXYCODONE-ACETAMINOPHEN 16336880784 No Longer Active Abdirahman Rios MD Active LIDODERM 5 % PTCH One patch to painful area [place]. On for 12 hrs, off for 12 hrs. LIDOCAINE 52651235846 No Longer Active Abdirahman Rios MD Active PERCOCET 7.5-325 MG TABS 1 PO q 8 hrs PRN pain OXYCODONE-ACETAMINOPHEN 37679032507 No Longer Active Shola MCGILL Active HYDROCODONE-ACETAMINOPHEN 7.5-325 MG TABS 1 by mouth e very 6 hours as needed for pain HYDROCODONE-ACETAMINOPHEN 51427105420 No Longer Active Good Julian MD Active CLINDAMYCIN HCL 300 MG CAPS 1 po QID x 7 days CLINDAMYCIN HCL 80584548993 No Longer Active Abdirahman Rios MD Activ e BACTRIM DS 800-160 MG TABS 1 po BID x 7 days 5 SULFAMETHOXAZOLE-TRIMETHOPRIM 30495809896 No Longer Active Abdirahman Rios MD Active ENDOCET 10-325 MG TABS 1 q 6 hr prn OXYCODONE-ACETAMINOPHEN 43033991006 No Longer Active Abdirahman Rios MD Active IBUPROFEN 800 MG TABS 1 tid prn IBUPROFEN 065120 78573 No Longer Active Abdirahman Rios MD Active BACTRIM DS 800-160 MG TABS by mouth twice a day 11/05 SULFAMETHOXAZOLE-TRIMETHOPRIM 71823457143 No Longer Active Good Julian MD Active HYDROCODONE-ACETAMINOPHEN 7.5-325 MG TABS 1 four times a day as needed for pain HYDROCODONE-ACETAMINOPHEN 40905357153 No Longer Activ e Good Julian MD Active KEFLEX 500 MG CAP 1 tab po tid CEPHALEXIN 851794 24656 No Longer Active Hira Moser APRN Active IBUPROFEN 800 MG TAB 1 pill three times daily as needed for pain IBUPROFEN 32898716481 No Longer Active Kalpesh Dong MD Active PROMETHAZINE-CODEINE 6.25-10 MG/5ML SYRP 1 tsp every 6 hrs prn c ough PROMETHAZINE-CODEINE 78821619771 No Longer Active Kalpesh Carr Active HYDROCODONE-ACETAMINOPHEN 5-325 MG TABS 1 tab by mouth every 6 hours as needed HYDROCODONE-ACETAMINOPHEN 39888830878 No Longer Activ e Shola MCGILL Active CEPHALEXIN 500 MG CAPS 1 PO bid x 7 days CEPHAL EXIN 24321784779 No Longer Active Shola MCGILL Active BACTRIM DS 800-160 MG TAB 1 tab by mouth twice daily 2 TRIMETHOPRIM-SULFAMETHOXAZOLE 15809537854 No Longer Active Kalpesh Dong MD Active HYDROCODONE-ACETAMINOPHEN 5-325 MG TABS 1 PO tid PRN pain 5 HYDROCODONE-ACETAMINOPHEN 96187772088 No Longer Active Abhinav Galvan MD Active IMPLANON 68 MG IMPL IMPLANTED IN LEFT ARM ETONO GESTREL 81564391731 No Longer Active Hira Moser APRN Active AMOXICILLIN 500 MG TABS 2 tabs PO bid x 10 d AM OXICILLIN 70019941084 No Longer Active Kalpesh Dong MD Active LEVAQUIN 500 MG TABS 1 PO q day x 7 days LEVOFL OXACIN 54358918602 No Longer Active Shola MCGILL Active AMITRIPTYLINE HCL 25 MG TAB 1 tab by mouth daily 60 minutes before bedtime AMITRIPTYLINE HCL 23967428348 No Longer Active Shola MCGILL Active LORTAB 5 5-500 MG TABS 1/2 to 1 tablet by mouth go ry 6 hours as needed for pain HYDROCODONE-ACETAMINOPHEN 87414737073 No Longer Active Shola MCGILL Active CEPHALEXIN 500 MG TABS Take one by mouth four times daily, morning, noon, early evening and bedtime. CEPHALEXIN 08353924812 No Long er Active Hira Moser PUMP TECHNICIAN Active TYLENOL/CODEINE #3 300-30 MG TAB 1-2 po q6hr PRN Pain ACETAMINOPHEN-CODEINE 28126244334 No Longer Active Edilberto Marino DO Active PRISTIQ 50 MG [id number] 1 po qd DESVENLAFAXI NE SUCCINATE 70990170508 No Longer Active Edilberto Marino DO Active PENICILLIN V POTASSIUM 500 MG TAB 1 four times a day 2 PENICILLIN V POTASSIUM 48059764130 No Longer Active Edilberto Marino DO Active DOXYCYCLINE HYCLATE 100 MG CAPS Take one (1) tablet by mouth twice a day DOXYCYCLINE HYCLATE 85308552243 No Longer Active Ronnie Galvan MD Active HYDROCODONE-ACETAMINOPHEN 5-325 MG TABS 1 po q 6hr PRN Pain 2011 HYDROCODONE-ACETAMINOPHEN 04332566673 No Longer Active Jerson Perez RN Active BACTRIM DS 800-160 MG TAB 1 tab by mouth twice daily 2 TRIMETHOPRIM-SULFAMETHOXAZOLE 78486153008 No Longer Active Kalpesh Dong MD Active LORTAB 5 5-500 MG TABS 1/2 to 1 tablet by mouth go ry 4 hours as needed for pain HYDROCODONE-ACETAMINOPHEN 31179126370 No Longer Active Kalpesh Dong MD Active GENERESS FE 0.8-25 MG-MCG CHEW Take one by mouth daily NORETHIN-ETH ESTRADIOL-FE 72353595595 No Longer Active Kalpesh Dong MD Active HYDROCODONE-ACETAMINOPHEN 7.5-500 MG TABS 1-2 every 4 hours as needed HYDROCODONE-ACETAMINOPHEN 08433286375 No Longer Activ e Kalpesh Dong MD Active FERROUS SULFATE 325 (65 FE) MG TABS 1 tablet by mouth twice yung y FERROUS SULFATE 68601169370 No Longer Active Kalpesh Dong MD Active IBUPROFEN 600 MG TAB 1 po q6-8hr PRN IBUPROFEN 77893240298 No Longer Active Kalpesh Dong MD Active SPIRONOLACTONE 25 MG TAB 1 tablet by mouth daily 01/22 SPIRONOLACTONE 09398596462 No Longer Active Kalpesh Dong MD Acti ve HYDROCODONE-ACETAMINOPHEN 7.5-325 MG TABS 1 po QID PRN Pain 2011 HYDROCODONE-ACETAMINOPHEN 99392515275 No Longer Active Kalpesh Dong MD Active CLINDAMYCIN HCL 300 MG CAPS 1 po q6hr x 7 days CLINDAMYCIN HCL 67147190189 No Longer Active Edilberto Marino DO Active PREDNISONE 20 MG TAB 2 tabs daily for 4 days, 1 t ab daily for 4 days, 1/2 tab daily for 4 days PREDNISONE 73934005615 No Longer Active Edilberto Marino DO Active PERCOCET 5-325 MG TABS 1 tablet by mouth every 6 hours as ne eded for pain OXYCODONE-ACETAMINOPHEN 68871848241 No Longer Active Abdirahman Rios MD Active VITAMINS TABS Take one by mouth daily MV & MIN W/FE-FA TABS 53449778782 No Longer Active Abdirahman Rios MD Active LUIS 3-0.02 MG TABS 1 tablet by mouth daily as directed DROSPIRENONE-ETHINYL ESTRADIOL 86490227454 No Longer Active Abdirahman Rios MD Active LORATADINE 10 MG TABS 1 tablet by mouth daily L ORATADINE 37388410963 No Longer Active Kalpesh Dong MD Active HYDROCODONE-ACETAMINOPHEN 5-325 MG TABS 1 po q 6hr PRN Pain 2010 HYDROCODONE-ACETAMINOPHEN 63328400284 No Longer Active Edilberto Marino DO Active BACTRIM DS 800-160 MG TAB 1 tab by mouth twice daily 2 TRIMETHOPRIM-SULFAMETHOXAZOLE 39739631953 No Longer Active Abdirahman Rios MD Active 28-0.8 MG TABS Take one by mouth daily 09/20 VIT-FE FUMARATE-FA 23660133483 No Longer Active Abdirahman Rios MD Active CIPRO 500 MG TAB 1 tablet by mouth twice daily CIPROFLOXACIN HCL 14115371109 No Longer Active Abdirahman Rios MD Active BENADRYL 25 MG CAP 1 po q8hr PRN Congestion DIPHENHYDRAMINE HCL 70039752230 No Longer Active Abdirahman Rios MD Active ZOLOFT 50 MG TAB 1 po qd SERTRALINE HCL 133773 30515 No Longer Active Abdirahman Rios MD Active AMOXICILLIN 875 MG TABS 1 tab by mouth twice daily 201 08/09/13 AMOXICILLIN 76305834024 No Longer Active Abdirahman Rios MD Activ e AMOXICILLIN 875 MG TABS 1 tab by mouth twice daily 201 07/19/27 AMOXICILLIN 66855875043 No Longer Active Abdirahman Rios MD Activ e BACTRIM DS 800-160 MG TAB 2 tab by mouth twice daily 2 TRIMETHOPRIM-SULFAMETHOXAZOLE 62591821204 No Longer Active Abdirahman Rios MD Active KEFLEX 500 MG CAP 1 po tid x 10 days CEPHALEXIN 14615212367 No Longer Active Abdirahman Rios MD Active AMOXICILLIN 875 MG TABS 1 tab by mouth twice daily 201 07/18/07 AMOXICILLIN 29137989157 No Longer Active Abdirahman Rios MD Activ e BACTRIM DS 800-160 MG TAB 2 tab by mouth twice daily 2 BACTRIM DS 800-160 MG TAB TRIMETHOPRIM-SULFAMETHOXAZOLE Inactive ZOLOFT 50 MG TAB 1 po qd ZOLOFT 50 MG TAB 3129 41 SERTRALINE HCL Inactive BENADRYL 25 MG CAP 1 po q8hr PRN Congestion BENADRYL 25 MG CAP 5461973 DIPHENHYDRAMINE HCL Inactive 28-0.8 MG TABS Take one by mouth daily 09/20 28-0.8 MG TABS VIT-FE FUMARATE-FA Inactive HYDROCODONE-ACETAMINOPHEN 5-325 MG TABS 1 po q 6hr PRN Pain 2010 HYDROCODONE-ACETAMINOPHEN 5-325 MG TABS 593173 HYDROCODONE-ACETAMINOPHEN Inactive LORATADINE 10 MG TABS 1 tablet by mouth daily LORATADINE 10 MG TABS 518720 LORATADINE Inactive LUIS 3-0.02 MG TABS 1 tablet by mouth daily as directed LUIS 3-0.02 MG TABS DROSPIRENONE-ETHINYL ESTRADIOL Inactive VITAMINS TABS Take one by mouth daily VITAMINS TABS MV & MIN W/FE-FA TABS Inactive PERCOCET 5-325 MG TABS 1 tablet by mouth every 6 hours as ne eded for pain PERCOCET 5-325 MG TABS 6092811 OXYCODONE-ACETAMIN OPHEN Inactive PREDNISONE 20 MG TAB 2 tabs daily for 4 days, 1 t ab daily for 4 days, 1/2 tab daily for 4 days PREDNISONE 20 MG TAB 899447 PREDNISON E Inactive CLINDAMYCIN HCL 300 MG CAPS 1 po q6hr x 7 days CLINDAMYCIN HCL 300 MG CAPS 250318 CLINDAMYCIN HCL Inactive HYDROCODONE-ACETAMINOPHEN 7.5-325 MG TABS 1 po QID PRN Pain 2011 HYDROCODONE-ACETAMINOPHEN 7.5-325 MG TABS 013937 HYDROCODONE-ACETAMINOPHEN Inactive SPIRONOLACTONE 25 MG TAB 1 tablet by mouth daily 01/22 SPIRONOLACTONE 25 MG TAB 238595 SPIRONOLACTONE Inactive IBUPROFEN 600 MG TAB 1 po q6-8hr PRN IBUPROFEN 600 MG TAB 998193 IBUPROFEN Inactive FERROUS SULFATE 325 (65 FE) MG TABS 1 tablet by mouth twice yung y FERROUS SULFATE 325 (65 FE) MG TABS 063036 FERROUS SULF ATE Inactive HYDROCODONE-ACETAMINOPHEN 7.5-500 MG TABS 1-2 every 4 hours as needed HYDROCODONE-ACETAMINOPHEN 7.5-500 MG TABS HYDROCODONE-ACETAMINOPHEN Inactive GENERESS FE 0.8-25 MG-MCG CHEW Take one by mouth daily GENERESS FE 0.8-25 MG-MCG CHEW 1636235 NORETHIN-ETH ESTRADIOL-FE Inactive LORTAB 5 5-500 MG [...] PRN Pain 2011 HYDROCODONE-ACETAMINOPHEN 5-325 MG TABS 993237 HYDROCODONE-ACETAMINOPHEN Inactive DOXYCYCLINE HYCLATE 100 MG CAPS Take one (1) tablet by mouth twice a day DOXYCYCLINE HYCLATE 100 MG CAPS 1590427 DOXYCYCLINE HYCLATE Inactive PENICILLIN V POTASSIUM 500 MG TAB 1 four times a day 2 PENICILLIN V POTASSIUM 500 MG TAB 919437 PENICILLIN V POTASSIUM [place] ctive PRISTIQ 50 MG [id number] 1 po qd PRISTIQ 50 MG [id number] DESVENLAFAXINE SUCCINATE Inactive TYLENOL/CODEINE #3 300-30 MG TAB 1-2 po q6hr PRN Pain TYLENOL/CODEINE #3 300-30 MG TAB 438388 ACETAMINOPHEN-CODEINE Inact krishna CEPHALEXIN 500 MG TABS Take one by mouth four times daily, morning, noon, early evening and bedtime. CEPHALEXIN 500 MG TABS 592655 CEPHALEXIN Inactive LORTAB 5 5-500 MG TABS 1/2 to 1 tablet by mouth go ry 6 hours as needed for pain LORTAB 5 5-500 MG TABS HYDROCODONE-A CETAMINOPHEN Inactive AMITRIPTYLINE HCL 25 MG TAB 1 tab by mouth daily 60 minutes before bedtime AMITRIPTYLINE HCL 25 MG TAB 438940 AMITRIPTYLINE HCL Inactive AMOXICILLIN 500 MG TABS 2 tabs PO bid x 10 d 7 AMOXICILLIN 500 MG TABS 325288 AMOXICILLIN Inactive IMPLANON 68 MG IMPL IMPLANTED IN LEFT ARM IMPLANON 68 MG IMPL ETONOGESTREL Inactive HYDROCODONE-ACETAMINOPHEN 5-325 MG TABS 1 PO tid PRN pain 5 HYDROCODONE-ACETAMINOPHEN 5-325 MG TABS 000494 HYDROCODONE-ACETAMIN OPHEN Inactive BACTRIM DS 800-160 MG TAB 1 tab by mouth twice daily 2 BACTRIM DS 800-160 MG TAB TRIMETHOPRIM-SULFAMETHOXAZOLE Inac tive CEPHALEXIN 500 MG CAPS 1 PO bid x 7 days CEPHALEXIN 500 MG CAPS 822531 CEPHALEXIN Inactive HYDROCODONE-ACETAMINOPHEN 5-325 MG TABS 1 tab by mouth every 6 hours as needed HYDROCODONE-ACETAMINOPHEN 5-325 MG TABS 804135 HYDROCODONE-ACETAMINOPHEN Inactive PROMETHAZINE-CODEINE 6.25-10 MG/5ML SYRP 1 tsp every 6 hrs prn c ough PROMETHAZINE-CODEINE 6.25-10 MG/5ML SYRP 658953 PROMETH AZINE-CODEINE Inactive IBUPROFEN 800 MG TAB 1 pill three times daily as needed for pain IBUPROFEN 800 MG TAB 821519 IBUPROFEN Inactive KEFLEX 500 MG CAP 1 tab po tid KEFLEX 500 MG CAP 144819 CEPHALEXIN Inactive HYDROCODONE-ACETAMINOPHEN 7.5-325 MG TABS 1 four times a day as needed for pain HYDROCODONE-ACETAMINOPHEN 7.5-325 MG TABS 500743 HYDROCODONE-ACETAMINOPHEN Inactive BACTRIM DS 800-160 MG TABS by mouth twice a day 11/05 BACTRIM DS 800-160 MG TABS SULFAMETHOXAZOLE-TRIMETHOPRIM Inactive IBUPROFEN 800 MG TABS 1 tid prn IBUPROFEN 800 MG TABS 627863 IBUPROFEN Inactive ENDOCET 10-325 MG TABS 1 q 6 hr prn ENDOC ET 10-325 MG TABS 8218591 OXYCODONE-ACETAMINOPHEN Inactive HYDROCODONE-ACETAMINOPHEN 7.5-325 MG TABS 1 by mouth e very 6 hours as needed for pain HYDROCODONE-ACETAMINOPHEN 7.5-325 MG TABS 746492 HYDROCODONE-ACETAMINOPHEN Inactive PERCOCET 7.5-325 MG TABS 1 PO q 8 hrs PRN pain PERCOCET 7.5-325 MG TABS 3435567 OXYCODONE-ACETAMINOPHEN Inactive LIDODERM 5 % PTCH One patch to painful area [place]. On for 12 hrs, off for 12 hrs. LIDODERM 5 % PTCH 4837438 LIDOCAINE Inactiv e PERCOCET 7.5-325 MG TABS 1 PO tid PRN pain PERCOCET 7.5- 325 MG TABS 9082975 OXYCODONE-ACETAMINOPHEN Inactive MOBIC 15 MG TABS 1 tab daily MOBIC 15 MG TABS 15 2695 MELOXICAM Inactive CYCLOBENZAPRINE HCL 10 MG TABS 1/2 - 1 tab PO tid PRN back p ain, muscle spasm CYCLOBENZAPRINE HCL 10 MG TABS 482012 CYCLOBENZA JOSEPH HCL Inactive LORATADINE 10 MG TABS 1 tablet by mouth daily LORATADINE 10 MG TABS 740953 LORATADINE Inactive HYDROCODONE-ACETAMINOPHEN 10-325 MG TABS 1 by mouth ev chaak 8 hours as needed for pain HYDROCODONE-ACETAMINOPHEN 10-325 MG TABS 593499 HYDROCODONE-ACETAMINOPHEN Inactive LC-5 LIDOCAINE 5 % CREA apply 1 time daily to affected area 2013 LC-5 LIDOCAINE 5 % CREA LIDOCAINE (ANORECTAL) In active PERCOCET 5-325 MG TAB 1 every 6 hours as needed PERCOCET 5-325 MG TAB 2451972 OXYCODONE-ACETAMINOPHEN Inactive KEFLEX 500 MG CAP 1 po qid KEFLEX 500 MG CAP 30 9114 CEPHALEXIN Inactive PROAIR HFA 108 (90 BASE) MCG/ACT AERS 2 puff q 4-6 hrs PRN 01/24 PROAIR HFA 108 (90 BASE) MCG/ACT AERS ALBUTEROL SULFATE Inactive PERCOCET 10-325 MG ORAL TABS 1 every 4 hours as needed PERCOCET 10-325 MG ORAL TABS 3912816 OXYCODONE-ACETAMINOPHEN Inactiv e EMLA 2.5-2.5 % EXT CREA apply to skin lesion q 6 hours, prn 2014 EMLA 2.5-2.5 % EXT CREA 503226 LIDOCAINE-PRILOCAINE [place] ctive AMOXICILLIN 875 MG TABS 1 tab by mouth twice daily 201 07/18/07 AMOXICILLIN 875 MG TABS 948383 AMOXICILLIN Inactive KEFLEX 500 MG CAP 1 po tid x 10 days KEFLEX 500 MG CAP 463444 CEPHALEXIN Inactive AMOXICILLIN 875 MG TABS 1 tab by mouth twice daily 201 07/19/27 AMOXICILLIN 875 MG TABS 465332 AMOXICILLIN Inactive AMOXICILLIN 875 MG TABS 1 tab by mouth twice daily 201 08/09/13 AMOXICILLIN 875 MG TABS 235076 AMOXICILLIN Inactive CIPRO 500 MG TAB 1 tablet by mouth twice daily CIPRO 500 MG TAB 335630 CIPROFLOXACIN HCL Inactive BACTRIM DS 800-160 MG TAB 1 tab by mouth twice daily 2 BACTRIM DS 800-160 MG TAB TRIMETHOPRIM-SULFAMETHOXAZOLE Inac tive LEVAQUIN 500 MG TABS 1 PO q day x 7 days LEVAQUIN 500 MG TABS 181551 LEVOFLOXACIN Inactive CLINDAMYCIN HCL 300 MG CAPS 1 po QID x 7 days CLINDAMYCIN HCL 300 MG CAPS 577156 CLINDAMYCIN HCL Inactive AUGMENTIN 875-125 MG TAB 1 tab by mouth twice daily with food 20 22/05/07 AUGMENTIN 875-125 MG TAB 496128 AMOXICILLIN-POT CLAVULA [place] Inactive DIFLUCAN 150 MG TAB 1 qODay x 2 doses DIFLUCAN 150 MG TAB 328346 FLUCONAZOLE Inactive PREDNISONE 20 MG TAB 2 tabs daily for 3 days, 1 t ab daily for 3 days, 1/2 tab daily for 2 days PREDNISONE 20 MG TAB 544403 PREDNISON E Inactive AUGMENTIN 875-125 MG TAB 1 tab by mouth twice daily with food 20 21/10/13 AUGMENTIN 875-125 MG TAB 569225 AMOXICILLIN-POT CLAVULA [place] Inactive Advance Directives Directive Description Start Date PERMISSION TO SHARE Immunizations Vaccine Administration Date Value Standard Alf cription Seasonal influenza vaccine, injectable, containing preservative, for > 3 years old (Afluria, FluLaval, Fluzone, Fluvirin, Fluarix, Agriflu(>= 18 yo)) Fluzone (>3 yrs.) [[id number]] Influenza, seasonal, inject able Seasonal influenza vaccine, injectable, preservative free, for > 3 years old (Afluria, FluLaval, Fluzone, Fluvirin, Fluarix, Agriflu(>= 18 yo)) Fluzone preservative free (>3 yrs.) [[id number]] Influenza, seasonal, injectable, preservative free Seasonal influenza vaccine, injectable, containing preservative, for > 3 years old (Afluria, FluLaval, Fluzone, Fluvirin, Fluarix, Agriflu(>= 18 yo)) Fluzone (>3 yrs.) [[id number]] Influenza, seasonal, inject able Seasonal influenza vaccine, injectable, containing preservative, for > 3 years old (Afluria, FluLaval, Fluzone, Fluvirin, Fluarix, Agriflu(>= 18 yo)) Fluzone (>3 yrs.) [[id number]] Influenza, seasonal, inject able dT (Diphtheria and [...] Panel - Chemistry sodium, serum 142 mmol/L 507-672 0591/05/12 potassium, serum 4.8 mmol/L 3.5-5.2 chloride, serum [...] Panel - Chemistry cholesterol, serum 165 mg/dL 009-604 7524/05/12 triglyceride, serum, fasting 524 mg/dL 30-200 HDL [...] negative Encounters Code Encounter Date Provider Facility CPT-06561 Level 2 Est. Patient 16:33:01 CDT Kalpesh goins MD [facility] CPT-86625 Level 4 Est. Patient 16:44:56 CDT Abdirahman Rios MD [facility] CPT-06088 Level 2 Est. Patient 07:49:32 CDT Kalpesh goins MD [facility] CPT-16167 Level 3 New Patient 15:47:11 THEATRICAL DRESSER Bj huber MD [facility] CPT-76085 Level 4 Est. Patient 14:37:38 THEATRICAL DRESSER Abdirahman Rios MD [facility] CPT-99981 Level 2 Est. Patient 13:32:17 THEATRICAL DRESSER Kalpesh goins MD [facility] CPT-59522 Level 3 Est. Patient 17:32:57 THEATRICAL DRESSER Edilberto tiwari [facility] CPT-33465 Level 3 Est. Patient 17:22:33 THEATRICAL DRESSER Edilberto tiwari [facility] CPT-61363 Level 2 Est. Patient 16:57:09 THEATRICAL DRESSER Kalpesh goins MD [facility] CPT-30795 Level 3 Est. Patient 14:03:08 THEATRICAL DRESSER Abdirahman Rios MD [facility] CPT-61399 Level 3 Est. Patient 18:12:34 CDT Shola Wright [facility] CPT-76513 Level 3 Est. Patient 19:34:46 CDT Shola Wright [facility] CPT-03895 Level 3 Est. Patient 14:19:37 CDT Abdirahman Rios MD [facility] CPT-77423 Level 3 Est. Patient 14:11:58 CDT Kalpesh goins MD [facility] CPT-92735 Level 3 Est. Patient 16:50:00 CDT Michelle trimble ROGELIO [facility] CPT-54335 Level 3 Est. Patient 17:11:32 THEATRICAL DRESSER Brandie bates MD PhD [facility]-55257 Level 3 Est. Patient 16:31:47 THEATRICAL DRESSER Shola Wright [facility] CPT-36016 Level 3 Est. Patient 17:51:10 THEATRICAL DRESSER Abhinav Galvan MD [facility]-11369 Level 4 Est. Patient 12:54:56 THEATRICAL DRESSER Kalpesh goins MD -99589 Level 4 Est. Patient 12:53:56 THEATRICAL DRESSER Kalpesh goins MD -38172 Level 3 Est. Patient 17:56:58 CDT Shola Wright [facility] CPT-63660 Level 3 Est. Patient 14:26:20 CDT Janak butcher [facility] CPT-42693 Level 3 Est. Patient 09:38:41 CDT Shola Wright [facility] CPT-02519 Level 3 Est. Patient 14:45:26 CDT Edilberto tiwari [facility] CPT-95016 Level 3 Est. Patient 10:51:33 [facility] Level 3 Est. Patient 11:57:55 THEATRICAL DRESSER Shola Wright [facility] CPT-40067 Level 3 Est. Patient 09:53:33 THEATRICAL DRESSER Edilberto tiwari [facility] CPT-28273 Level 3 Est. Patient 14:42:54 THEATRICAL DRESSER Abhinav Galvan MD [facility] CPT-91402 Level 3 Est. Patient 15:10:02 CDT Janak butcher [facility] CPT-95687 Level 3 Est. Patient 15:20:20 CDT Theo dennis MD [facility] CPT-13641 Level 2 Est. Patient 14:08:57 CDT Kalpesh goins MD [facility] CPT-67572 Level 3 Est. Patient 13:56:19 CDT Abdirahman Rios MD [facility] CPT-98552 Level 3 Est. Patient 13:59:37 CDT Abdirahman Rios MD [facility] CPT-74659 Level 2 Est. Patient 14:44:59 CDT Kalpesh goins MD [facility] CPT-52883 Level 3 Est. Patient 06:06:23 CDT Edilberto tiwari DO [facility] CPT-00044 Level 3 Est. Patient 15:23:54 CDT Abdirahman Rios MD [facility] CPT-56515 Level 3 Est. Patient 15:43:49 CDT Abdirahman Rios MD [facility] CPT-96802 Level 3 Est. Patient 12:46:47 THEATRICAL DRESSER Abdirahman Rios MD [facility] CPT-13455 Level 3 Est. Patient 08:13:35 THEATRICAL DRESSER Abdirahman Rios MD [facility] CPT-03243 Level 2 Est. Patient 09:36:42 THEATRICAL DRESSER Abdirahman Rios MD [facility] CPT-35900 Level 3 Est. Patient 10:56:43 CDT Abdirahman Rios MD [facility] CPT-06611 Level 3 Est. Patient 18:24:52 CDT Abdirahman Rios MD [facility] CPT-03924 Level 3 Est. Patient 13:27:22 CDT Abdirahman Rios MD [facility] Procedures Code Procedure Name Date Entry Date Standard Desc ription CPT-79437 Postop F/U Visit 14:40:59 CDT CPT-38219 Postop F/U Visit 15:02:46 CDT CPT-36024 Postop F/U Visit 11:29:00 THEATRICAL DRESSER CPT-J0696 Rocephin 1000 mg (Ceftriaxone) 17:22:33 THEATRICAL DRESSER CPT-60952 Postop F/U Visit 18:41:07 THEATRICAL DRESSER CPT-12228 Postop F/U Visit 08:19:08 THEATRICAL DRESSER CPT-93391 Immunization Single Admin 16:41:53 CDT 2013 CPT-83496 Fluzone Quadrivalent Intramuscular Suspe nsion 0.5 ML 16:41:53 CDT CPT-OV Office Visit 16:39:18 CDT CPT-OV Office Visit 16:16:36 CDT CPT-OV Office Visit 15:34:48 CDT CPT-36497 Postop F/U Visit 14:50:12 CDT CPT-43049 Postop F/U Visit 14:41:10 CDT CPT-90044 Venipuncture Draw Fee 11:38:04 THEATRICAL DRESSER CPT-49783 Postop F/U Visit 19:02:59 THEATRICAL DRESSER CPT-59902 Postop F/U Visit 12:04:54 THEATRICAL DRESSER CPT-58912 Administration single or combination vac cine inc oral 15:56:43 CDT CPT-19359 Influenza split virus > age 3 15:56:43 CDT CPT-00699 Hand comp min 3V 14:25:19 CDT CPT-09602 Postop F/U Visit 21:40:51 CDT CPT-47192 Postop F/U Visit 10:58:43 CDT CPT-43014 Administration single or combination vac cine inc oral 12:33:54 THEATRICAL DRESSER CPT-10981 Influenza Preservative Free split virus >age 3 12:33:54 THEATRICAL DRESSER CPT-24658 Administration single or combination vac cine inc oral 09:30:51 CDT CPT-32599 Influenza split virus > age 3 09:30:51 CDT CPT-45565 Postop F/U Visit 15:14:53 CDT CPT-12661 Postop F/U Visit 13:50:14 CDT CPT-03025 Postop F/U Visit 13:34:52 CDT CPT-OV Office Visit 16:55:03 CDT CPT-88517 Cantril of cervix w bx ECC 13:32:50 CDT 10/19 CPT-J1885 Toradol 60 mg (Ketorolac) 15:31:59 CDT 2011 CPT-J1885 Toradol 60 mg (Ketorolac) 15:23:54 CDT 2011 CPT-82128 Visit 11:34:37 THEATRICAL DRESSER CPT-66531 Visit 10:52:39 THEATRICAL DRESSER CPT-78492 Visit 10:12:02 THEATRICAL DRESSER CPT-05269 Visit 11:22:43 THEATRICAL DRESSER CPT-88301 Visit 11:24:12 THEATRICAL DRESSER CPT-58818 Visit 10:47:05 THEATRICAL DRESSER CPT-OV Office Visit 10:26:16 THEATRICAL DRESSER CPT-OV Office Visit 15:34:31 THEATRICAL DRESSER CPT-87378 Visit 10:42:08 THEATRICAL DRESSER CPT-13885 Visit 10:52:45 THEATRICAL DRESSER CPT-000 Give Appropriate Flu Vaccine 16:56:41 CDT 2 CPT-37899 Administration single or combination vac cine inc oral 10:33:21 CDT CPT-46579 Influenza split virus > age 3 10:33:21 CDT CPT-48185 Visit 13:23:09 CDT CPT-99513 Visit 18:24:52 CDT CPT-34207 Sono OB comp > 14 weeks 12:07:49 CDT 04/07
--- OUTSIDE RECORDS SUMMARY | 2020-01-18 16:36 | XMS REPORT | Clinical Summary ---
Author Author Avery, Jeri Rashid Organization [facility] [...] unspecified SINUSITIS, ACUTE 461.9 Active Rajni Alcazar TERMINAL MAKEUP OPERATOR Acute sinusitis, unspecified BACK PAIN 724.5 Resolved [...] 6 hours as needed for pain HYDROCODONE-ACETAMINOPHEN 23999234598 No Longer Active Kalpesh Dong MD Active PERCOCET 10-325 MG ORAL TABS 1 every 4 hous as needed OXYCODONE-ACETAMINOPHEN 87061992230 Active Abdirahman Rios MD Active GLYDO 2 % EXT GEL apply to painful areas as needed LIDOCAINE HCL 47623720930 Active Kalpesh Dong MD Active LC-4 LIDOCAINE 4 % EXT CREA apply to painful area every 12 h ours or as needed LIDOCAINE 97448791861 Active Kalpesh Dong MD Active AUGMENTIN 875-125 MG TAB 1 tab by mouth twice daily with food 20 23/05/16 AMOXICILLIN-POT CLAVULANATE 68294892125 No Longer Active Lizeth hi Yokum TERMINAL MAKEUP 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 FLUTICASONE PROPIONATE 47716382859 No Longer Ac tive Rajni [employer] TERMINAL MAKEUP OPERATOR Active PERCOCET 10-325 MG ORAL TABS take 1 tab by mouth q 4hours as needed for pain OXYCODONE-ACETAMINOPHEN 92689428848 No Longer Active Rajni Yokum TERMINAL MAKEUP OPERATOR Active PERCOCET 10-325 MG ORAL TABS one every 6 hours prn pain OXYCODONE-ACETAMINOPHEN 23258309675 No Longer Active Rajni Yokum TERMINAL MAKEUP OPERATOR Active IBUPROFEN 800 MG TABS 1 tab po tid, with food I BUPROFEN 25828002721 Active Karenina Joyzell TERMINAL MAKEUP OPERATOR Active PERCOCET 10-325 MG TABS 1 tablet every 8 hours as needed for pain 2 OXYCODONE-ACETAMINOPHEN 90510994190 Active Rajni [employer] TERMINAL MAKEUP OPERATOR Active DICLOFENAC SODIUM 50 MG TBEC 1 tablet by mouth four times da tom PRN Pain DICLOFENAC SODIUM 32873413338 No Longer Active Rajni Yokum TERMINAL MAKEUP OPERATOR Active VIIBRYD 10 & 20 & 40 MG KIT 1 po qd as directed 07/24 VILAZODONE HCL 10064290751 No Longer Active Rajni [employer]okum TERMINAL MAKEUP OPERATOR Active ONDANSETRON 4 MG TBDP 1 q4h PRN nausea ONDANSET KELBY 82042014231 No Longer Active Rajni Yokum TERMINAL MAKEUP OPERATOR Active PERCOCET 10-325 MG TABS 1 tablet every 8 hours as needed for antonia n OXYCODONE-ACETAMINOPHEN 02910586021 No Longer Active aRjni cox TERMINAL MAKEUP OPERATOR Active HYDROCODONE-ACETAMINOPHEN 5-325 MG TABS 1 po TID PRN Pain 9 HYDROCODONE-ACETAMINOPHEN 68333054331 No Longer Active Abdirahman Rios MD Active LC-4 LIDOCAINE 4 % EXT CREA apply q 6 hours, prn LIDOCAINE 49203902100 Active Hira Joyjanee TERMINAL MAKEUP OPERATOR Active [id number] 50-325-40 MG ORAL CAPS 1-2 po TID [place] N Headache [id number] 81154053415 No Longer Act krishna Kalpesh Dong MD Active ALPRAZOLAM 0.5 MG TABS 1 po BID PRN Anxiety ALP RAZOLAM 15943155409 No Longer Active Kalpesh Dong MD Active TRAZODONE HCL 100 MG TAB 0.5 to 1 po qHS PRN Insomnia TRAZODONE HCL 73323293424 No Longer Active Kalpesh Dong MD Activ e HYDROCODONE-ACETAMINOPHEN 5-325 MG TABS 1 po q6hr PRN Pain 04/09 HYDROCODONE-ACETAMINOPHEN 65577423672 No Longer Active Kalpesh Dong MD Active CYMBALTA 30 MG CPEP 1 cap by mouth daily DULOXE CLEO HCL 54656570086 No Longer Active Abdirahman Rios MD Active IBUPROFEN 600 MG ORAL TABS 1 by mouth twice a day 2014 IBUPROFEN 38604114208 No Longer Active Abdirahman Rios MD Activ e PERCOCET 5-325 MG TAB 1 tab po q 6 hours, prn severe pain 1 OXYCODONE-ACETAMINOPHEN 22061432205 No Longer Active Abdirahman Rios MD Active SPRINTEC 28 0.25-35 MG-MCG TABS 1 pill by mouth daily for bi rth control NORGESTIMATE-ETH ESTRADIOL 36888980872 No Longer Acti ve Hira Moser TERMINAL MAKEUP OPERATOR Active CYCLOBENZAPRINE HCL 10 MG TABS 1 tablet by mouth three times daily as needed for muscle spasm/pain CYCLOBENZAPRINE HCL 67215244391 No Longer Active Hira Moser TERMINAL MAKEUP OPERATOR Active HYDROCODONE-ACETAMINOPHEN 5-325 MG TABS 1 po q6hr PRN Pain 03/09 HYDROCODONE-ACETAMINOPHEN 89969715916 No Longer Active Matthewllina Karmen l TERMINAL MAKEUP OPERATOR Active AUGMENTIN 500-125 MG ORAL TABS 1 by mouth twice a day AMOXICILLIN-POT CLAVULANATE 27257116589 No Longer Active Matthewllina Karmenl TERMINAL MAKEUP OPERATOR Active DICLOFENAC SODIUM 50 MG TBEC 1 tablet by mouth four times da tom PRN Pain DICLOFENAC SODIUM 57506905889 No Longer Active Karenin a Shanti TERMINAL MAKEUP OPERATOR Active PROMETHAZINE HCL 25 MG TABS 1 four times a day as needed for nausea/vomiting PROMETHAZINE HCL 73512353796 No Longer Active Abdirahman Rios MD Active HYDROCODONE-ACETAMINOPHEN 5-325 MG TABS 1 tab by mouth every 6 hours as needed PRN Pain HYDROCODONE-ACETAMINOPHEN 24378413271 No Longer Active Abdirahman Rios MD Active GEMFIBROZIL 600 MG TABS 1 po BID GEMFIBROZIL 14319774 005 Active Abdirahman Rios MD Active PERCOCET 5-325 MG ORAL TABS 1 every 6 hours as needed OXYCODONE-ACETAMINOPHEN 65719135294 No Longer Active Abdirahman Rios MD Active PERCOCET 5-325 MG TAB 1 tab po q 6 -8 hours, prn for severe pain OXYCODONE-ACETAMINOPHEN 08429331131 No Longer Active Abdirahman Rios MD Active HYDROCODONE-ACETAMINOPHEN 5-325 MG TABS 1 po q6hr PRN pain 06/30 HYDROCODONE-ACETAMINOPHEN 27808175500 No Longer Active Hira roman TERMINAL MAKEUP OPERATOR Active GLUCOPHAGE 500 MG ORAL TABS one by mouth 3 times a day METFORMIN HCL 62394927632 No Longer Active Karenina Shanti TERMINAL MAKEUP OPERATOR Ac tive PERCOCET 10-325 MG TABS 1 tab by mouth every 6 hours , use sparingly for severe pain OXYCODONE-ACETAMINOPHEN 61832954090 No Longer A ctive Abdirahman Rios MD Active EMLA 2.5-2.5 % EXT CREA apply to skin lesion q 6 hours, prn 2014 LIDOCAINE-PRILOCAINE 62895264059 No Longer Active Abdirahman Riso MD Active PERCOCET 10-325 MG ORAL TABS 1 every 4 hours as needed OXYCODONE-ACETAMINOPHEN 03121815995 No Longer Active Abdirahman Rios MD Active AUGMENTIN 875-125 MG TAB 1 tab by mouth twice daily with food 20 21/10/13 AMOXICILLIN-POT CLAVULANATE 43766656041 No Longer Active Ursula Moser APRN Active PROAIR HFA 108 (90 BASE) MCG/ACT AERS 2 puff q 4-6 hrs PRN 01/24 ALBUTEROL SULFATE 16999226359 No Longer Active Kalpesh Dong MD Active PREDNISONE 20 MG TAB 2 tabs daily for 3 days, 1 t ab daily for 3 days, 1/2 tab daily for 2 days PREDNISONE 57448775094 No Longer Active Abdirahman Rios MD Active KEFLEX 500 MG CAP 1 po qid CEPHALEXIN 818020918 20 No Longer Active Kalpesh Dong MD Active PERCOCET 5-325 MG TAB 1 every 6 hours as needed OXYCODONE-ACETAMINOPHEN 14758642466 No Longer Active Shola MCGILL Active LC-5 LIDOCAINE 5 % CREA apply 1 time daily to affected area 2013 LIDOCAINE (ANORECTAL) 78540265548 No Longer Active Hira muniz APRN Active HYDROCODONE-ACETAMINOPHEN 10-325 MG TABS 1 by mouth ev chaka 8 hours as needed for pain HYDROCODONE-ACETAMINOPHEN 53565332004 No Longer Active Jillina Frazell TERMINAL MAKEUP OPERATOR Active LORATADINE 10 MG TABS 1 tablet by mouth daily L ORATADINE 34707239303 No Longer Active Jillina Frazell TERMINAL MAKEUP OPERATOR Active DIFLUCAN 150 MG TAB 1 qODay x 2 doses FLUCONAZO LE 42381363067 No Longer Active Jillina Frazell TERMINAL MAKEUP OPERATOR Active CYCLOBENZAPRINE HCL 10 MG TABS 1/2 - 1 tab PO tid PRN back p ain, muscle spasm CYCLOBENZAPRINE HCL 16162099148 No Longer Active Karen siri Frazell TERMINAL MAKEUP OPERATOR Active AUGMENTIN 875-125 MG TAB 1 tab by mouth twice daily with food 20 22/05/07 AMOXICILLIN-POT CLAVULANATE 06561645447 No Longer Active Loida Rios MD Active MOBIC 15 MG TABS 1 tab daily MELOXICAM 210244624 14 No Longer Active Abdirahman Rios MD Active PERCOCET 7.5-325 MG TABS 1 PO tid PRN pain OXYCODONE-ACETAMINOPHEN 04102851924 No Longer Active Abdirahman Rios MD Active LIDODERM 5 % PTCH One patch to painful area [place]. On for 12 hrs, off for 12 hrs. LIDOCAINE 28304960364 No Longer Active Abdirahman Rios MD Active PERCOCET 7.5-325 MG TABS 1 PO q 8 hrs PRN pain OXYCODONE-ACETAMINOPHEN 38383210770 No Longer Active Shola MCGILL Active HYDROCODONE-ACETAMINOPHEN 7.5-325 MG TABS 1 by mouth e very 6 hours as needed for pain HYDROCODONE-ACETAMINOPHEN 86888180819 No Longer Active Good Julian MD Active CLINDAMYCIN HCL 300 MG CAPS 1 po QID x 7 days CLINDAMYCIN HCL 56018272795 No Longer Active Abdirahman Rios MD Activ e BACTRIM DS 800-160 MG TABS 1 po BID x 7 days 5 SULFAMETHOXAZOLE-TRIMETHOPRIM 41453632545 No Longer Active Abdirahman Rios MD Active ENDOCET 10-325 MG TABS 1 q 6 hr prn OXYCODONE-ACETAMINOPHEN 00121814091 No Longer Active Abdirahman Rios MD Active IBUPROFEN 800 MG TABS 1 tid prn IBUPROFEN 571212 76758 No Longer Active Abdirahman Rios MD Active BACTRIM DS 800-160 MG TABS by mouth twice a day 11/05 SULFAMETHOXAZOLE-TRIMETHOPRIM 86753145299 No Longer Active Good Julian MD Active HYDROCODONE-ACETAMINOPHEN 7.5-325 MG TABS 1 four times a day as needed for pain HYDROCODONE-ACETAMINOPHEN 92958196793 No Longer Activ e Good Julian MD Active KEFLEX 500 MG CAP 1 tab po tid CEPHALEXIN 696679 44704 No Longer Active Hira Moser APRN Active IBUPROFEN 800 MG TAB 1 pill three times daily as needed for pain IBUPROFEN 78989136814 No Longer Active Kalpesh Dong MD Active PROMETHAZINE-CODEINE 6.25-10 MG/5ML SYRP 1 tsp every 6 hrs prn c ough PROMETHAZINE-CODEINE 59134177152 No Longer Active Kalpesh Carr Active HYDROCODONE-ACETAMINOPHEN 5-325 MG TABS 1 tab by mouth every 6 hours as needed HYDROCODONE-ACETAMINOPHEN 35522935240 No Longer Activ e Shola MCGILL Active CEPHALEXIN 500 MG CAPS 1 PO bid x 7 days CEPHAL EXIN 58903473661 No Longer Active Shola MCGILL Active BACTRIM DS 800-160 MG TAB 1 tab by mouth twice daily 2 TRIMETHOPRIM-SULFAMETHOXAZOLE 92258797416 No Longer Active Kalpesh Dong MD Active HYDROCODONE-ACETAMINOPHEN 5-325 MG TABS 1 PO tid PRN pain 5 HYDROCODONE-ACETAMINOPHEN 00125737720 No Longer Active Abhinav Galvan MD Active IMPLANON 68 MG IMPL IMPLANTED IN LEFT ARM ETONO GESTREL 80678559138 No Longer Active Hira Moser APRN Active AMOXICILLIN 500 MG TABS 2 tabs PO bid x 10 d AM OXICILLIN 76820217148 No Longer Active Kalpesh Dong MD Active LEVAQUIN 500 MG TABS 1 PO q day x 7 days LEVOFL OXACIN 23556947032 No Longer Active Shola MCGILL Active AMITRIPTYLINE HCL 25 MG TAB 1 tab by mouth daily 60 minutes before bedtime AMITRIPTYLINE HCL 96362620728 No Longer Active Shola MCGILL Active LORTAB 5 5-500 MG TABS 1/2 to 1 tablet by mouth go ry 6 hours as needed for pain HYDROCODONE-ACETAMINOPHEN 80885767576 No Longer Active Shola MCGILL Active CEPHALEXIN 500 MG TABS Take one by mouth four times daily, morning, noon, early evening and bedtime. CEPHALEXIN 84545011325 No Long er Active Hira Moser APRN Active TYLENOL/CODEINE #3 300-30 MG TAB 1-2 po q6hr PRN Pain ACETAMINOPHEN-CODEINE 16236831084 No Longer Active Edilberto Marino DO Active PRISTIQ 50 MG [id number] 1 po qd DESVENLAFAXI NE SUCCINATE 03141904065 No Longer Active Edilberto Marino DO Active PENICILLIN V POTASSIUM 500 MG TAB 1 four times a day 2 PENICILLIN V POTASSIUM 64583535007 No Longer Active Edilberto Marino DO Active DOXYCYCLINE HYCLATE 100 MG CAPS Take one (1) tablet by mouth twice a day DOXYCYCLINE HYCLATE 27355190071 No Longer Active Ronnie Galvan MD Active HYDROCODONE-ACETAMINOPHEN 5-325 MG TABS 1 po q 6hr PRN Pain 2011 HYDROCODONE-ACETAMINOPHEN 59556530530 No Longer Active Patri joan Perez RN Active BACTRIM DS 800-160 MG TAB 1 tab by mouth twice daily 2 TRIMETHOPRIM-SULFAMETHOXAZOLE 22433081399 No Longer Active Kalpesh Dong MD Active LORTAB 5 5-500 MG TABS 1/2 to 1 tablet by mouth go ry 4 hours as needed for pain HYDROCODONE-ACETAMINOPHEN 87467023621 No Longer Active Kalpesh Dong MD Active GENERESS FE 0.8-25 MG-MCG CHEW Take one by mouth daily NORETHIN-ETH ESTRADIOL-FE 74128478329 No Longer Active Kalpesh Dong MD Active HYDROCODONE-ACETAMINOPHEN 7.5-500 MG TABS 1-2 every 4 hours as needed HYDROCODONE-ACETAMINOPHEN 41971239431 No Longer Activ e Kalpesh Dong MD Active FERROUS SULFATE 325 (65 FE) MG TABS 1 tablet by mouth twice yung y FERROUS SULFATE 68484562871 No Longer Active Kalpesh Dong MD Active IBUPROFEN 600 MG TAB 1 po q6-8hr PRN IBUPROFEN 74401886657 No Longer Active Kalpesh Dong MD Active SPIRONOLACTONE 25 MG TAB 1 tablet by mouth daily 01/22 SPIRONOLACTONE 57708331618 No Longer Active Kalpesh Dong MD Acti ve HYDROCODONE-ACETAMINOPHEN 7.5-325 MG TABS 1 po QID PRN Pain 2011 HYDROCODONE-ACETAMINOPHEN 95219523870 No Longer Active Kalpesh Dong MD Active CLINDAMYCIN HCL 300 MG CAPS 1 po q6hr x 7 days CLINDAMYCIN HCL 67831055014 No Longer Active Edilberto Marino DO Active PREDNISONE 20 MG TAB 2 tabs daily for 4 days, 1 t ab daily for 4 days, 1/2 tab daily for 4 days PREDNISONE 76340080976 No Longer Active Edilberto Marino DO Active PERCOCET 5-325 MG TABS 1 tablet by mouth every 6 hours as ne eded for pain OXYCODONE-ACETAMINOPHEN 47841676295 No Longer Active Abdirahman Rios MD Active VITAMINS TABS Take one by mouth daily MV & MIN W/FE-FA TABS 63737581296 No Longer Active Abdirahman Rios MD Active LUIS 3-0.02 MG TABS 1 tablet by mouth daily as directed DROSPIRENONE-ETHINYL ESTRADIOL 54956780032 No Longer Active Abdirahman Rios MD Active LORATADINE 10 MG TABS 1 tablet by mouth daily L ORATADINE 67131317949 No Longer Active Kalpesh Dong MD Active HYDROCODONE-ACETAMINOPHEN 5-325 MG TABS 1 po q 6hr PRN Pain 2010 HYDROCODONE-ACETAMINOPHEN 54208495766 No Longer Active Edilberto Marino DO Active BACTRIM DS 800-160 MG TAB 1 tab by mouth twice daily 2 TRIMETHOPRIM-SULFAMETHOXAZOLE 51622931650 No Longer Active Abdirahman Rios MD Active 28-0.8 MG TABS Take one by mouth daily 09/20 VIT-FE FUMARATE-FA 18988219938 No Longer Active Abdirahman Rios MD Active CIPRO 500 MG TAB 1 tablet by mouth twice daily CIPROFLOXACIN HCL 67238161646 No Longer Active Abdirahman Rios MD Active BENADRYL 25 MG CAP 1 po q8hr PRN Congestion DIPHENHYDRAMINE HCL 78085118132 No Longer Active Abdirahman Rios MD Active ZOLOFT 50 MG TAB 1 po qd SERTRALINE HCL 922966 85431 No Longer Active Abdirahman Rios MD Active AMOXICILLIN 875 MG TABS 1 tab by mouth twice daily 201 08/09/13 AMOXICILLIN 58828544374 No Longer Active Abdirahman Rios MD Activ e AMOXICILLIN 875 MG TABS 1 tab by mouth twice daily 201 07/19/27 AMOXICILLIN 84311321732 No Longer Active Abdirahman Rios MD Activ e BACTRIM DS 800-160 MG TAB 2 tab by mouth twice daily 2 TRIMETHOPRIM-SULFAMETHOXAZOLE 09789782141 No Longer Active Abdirahman Rios MD Active KEFLEX 500 MG CAP 1 po tid x 10 days CEPHALEXIN 01062661897 No Longer Active Abdirahman Rios MD Active AMOXICILLIN 875 MG TABS 1 tab by mouth twice daily 201 07/18/07 AMOXICILLIN 88345667358 No Longer Active Abdirahman Rios MD Activ e BACTRIM DS 800-160 MG TAB 2 tab by mouth twice daily 2 BACTRIM DS 800-160 MG TAB 883622 TRIMETHOPRIM-SULFAMETHOXAZOLE Inactive ZOLOFT 50 MG TAB 1 po qd ZOLOFT 50 MG TAB 3129 41 SERTRALINE HCL Inactive BENADRYL 25 MG CAP 1 po q8hr PRN Congestion BENADRYL 25 MG CAP [id number] DIPHENHYDRAMINE HCL Inactive 28-0.8 MG TABS Take one by mouth daily 09/20 28-0.8 MG TABS VIT-FE FUMARATE-FA Inactive HYDROCODONE-ACETAMINOPHEN 5-325 MG TABS 1 po q 6hr PRN Pain 2010 HYDROCODONE-ACETAMINOPHEN 5-325 MG TABS 325126 HYDROCODONE-ACETAMINOPHEN Inactive LORATADINE 10 MG TABS 1 tablet by mouth daily LORATADINE 10 MG TABS 521474 LORATADINE Inactive LUIS 3-0.02 MG TABS 1 tablet by mouth daily as directed LUIS 3-0.02 MG TABS 178673 DROSPIRENONE-ETHINYL ESTRADIOL Inactive VITAMINS TABS Take one by mouth daily VITAMINS TABS MV & MIN W/FE-FA TABS Inactive PERCOCET 5-325 MG TABS 1 tablet by mouth every 6 hours as ne eded for pain PERCOCET 5-325 MG TABS 9825716 OXYCODONE-ACETAMIN OPHEN Inactive PREDNISONE 20 MG TAB 2 tabs daily for 4 days, 1 t ab daily for 4 days, 1/2 tab daily for 4 days PREDNISONE 20 MG TAB 625953 PREDNISON E Inactive CLINDAMYCIN HCL 300 MG CAPS 1 po q6hr x 7 days CLINDAMYCIN HCL 300 MG CAPS 893886 CLINDAMYCIN HCL Inactive HYDROCODONE-ACETAMINOPHEN 7.5-325 MG TABS 1 po QID PRN Pain 2011 HYDROCODONE-ACETAMINOPHEN 7.5-325 MG TABS 187308 HYDROCODONE-ACETAMINOPHEN Inactive SPIRONOLACTONE 25 MG TAB 1 tablet by mouth daily 01/22 SPIRONOLACTONE 25 MG TAB 937303 SPIRONOLACTONE Inactive IBUPROFEN 600 MG TAB 1 po q6-8hr PRN IBUPROFEN 600 MG TAB 137928 IBUPROFEN Inactive FERROUS SULFATE 325 (65 FE) MG TABS 1 tablet by mouth twice yung y FERROUS SULFATE 325 (65 FE) MG TABS 458002 FERROUS SULF ATE Inactive HYDROCODONE-ACETAMINOPHEN 7.5-500 MG TABS 1-2 every 4 hours as needed HYDROCODONE-ACETAMINOPHEN 7.5-500 MG TABS HYDROCODONE-ACETAMINOPHEN Inactive GENERESS FE 0.8-25 MG-MCG CHEW Take one by mouth daily GENERESS FE 0.8-25 MG-MCG CHEW [id number] NORETHIN-ETH ESTRADIOL-FE Inactive LORTAB 5 5-500 MG TABS 1/2 to 1 tablet by mouth go ry 4 hours as needed for pain LORTAB 5 5-500 MG TABS HYDROCODONE-A CETAMINOPHEN Inactive BACTRIM DS 800-160 MG TAB 1 tab by mouth twice daily 2 BACTRIM DS 800-160 MG TAB 586905 TRIMETHOPRIM-SULFAMETHOXAZOLE Inac tive HYDROCODONE-ACETAMINOPHEN 5-325 MG TABS 1 po q 6hr PRN Pain 2011 HYDROCODONE-ACETAMINOPHEN 5-325 MG TABS 352048 HYDROCODONE-ACETAMINOPHEN Inactive DOXYCYCLINE HYCLATE 100 MG CAPS Take one (1) tablet by mouth twice a day DOXYCYCLINE HYCLATE 100 MG CAPS 4725637 DOXYCYCLINE HYCLATE Inactive PENICILLIN V POTASSIUM 500 MG TAB 1 four times a day 2 PENICILLIN V POTASSIUM 500 MG TAB 323930 PENICILLIN V POTASSIUM [place] ctive PRISTIQ 50 MG [id number] 1 po qd PRISTIQ 50 MG [id number] DESVENLAFAXINE SUCCINATE Inactive TYLENOL/CODEINE #3 300-30 MG TAB 1-2 po q6hr PRN Pain TYLENOL/CODEINE #3 300-30 MG TAB 182593 ACETAMINOPHEN-CODEINE Inact krishna CEPHALEXIN 500 MG TABS Take one by mouth four times daily, morning, noon, early evening and bedtime. CEPHALEXIN 500 MG TABS 173735 CEPHALEXIN Inactive LORTAB 5 5-500 MG TABS 1/2 to 1 tablet by mouth go ry 6 hours as needed for pain LORTAB 5 5-500 MG TABS HYDROCODONE-A CETAMINOPHEN Inactive AMITRIPTYLINE HCL 25 MG TAB 1 tab by mouth daily 60 minutes before bedtime AMITRIPTYLINE HCL 25 MG TAB 575352 AMITRIPTYLINE HCL Inactive AMOXICILLIN 500 MG TABS 2 tabs PO bid x 10 d 7 AMOXICILLIN 500 MG TABS 326432 AMOXICILLIN Inactive IMPLANON 68 MG IMPL IMPLANTED IN LEFT ARM IMPLANON 68 MG IMPL ETONOGESTREL Inactive HYDROCODONE-ACETAMINOPHEN 5-325 MG TABS 1 PO tid PRN pain 5 HYDROCODONE-ACETAMINOPHEN 5-325 MG TABS 065248 HYDROCODONE-ACETAMIN OPHEN Inactive BACTRIM DS 800-160 MG TAB 1 tab by mouth twice daily 2 BACTRIM DS 800-160 MG TAB 252713 TRIMETHOPRIM-SULFAMETHOXAZOLE Inac tive CEPHALEXIN 500 MG CAPS 1 PO bid x 7 days CEPHALEXIN 500 MG CAPS 647230 CEPHALEXIN Inactive HYDROCODONE-ACETAMINOPHEN 5-325 MG TABS 1 tab by mouth every 6 hours as needed HYDROCODONE-ACETAMINOPHEN 5-325 MG TABS 067660 HYDROCODONE-ACETAMINOPHEN Inactive PROMETHAZINE-CODEINE 6.25-10 MG/5ML SYRP 1 tsp every 6 hrs prn c ough PROMETHAZINE-CODEINE 6.25-10 MG/5ML SYRP 115300 PROMETH AZINE-CODEINE Inactive IBUPROFEN 800 MG TAB 1 pill three times daily as needed for pain IBUPROFEN 800 MG TAB 868931 IBUPROFEN Inactive KEFLEX 500 MG CAP 1 tab po tid KEFLEX 500 MG CAP 461169 CEPHALEXIN Inactive HYDROCODONE-ACETAMINOPHEN 7.5-325 MG TABS 1 four times a day as needed for pain HYDROCODONE-ACETAMINOPHEN 7.5-325 MG TABS 821676 HYDROCODONE-ACETAMINOPHEN Inactive BACTRIM DS 800-160 MG TABS by mouth twice a day 11/05 BACTRIM DS 800-160 MG TABS 284372 SULFAMETHOXAZOLE-TRIMETHOPRIM Inactive IBUPROFEN 800 MG TABS 1 tid prn IBUPROFEN 800 MG TABS 016018 IBUPROFEN Inactive ENDOCET 10-325 MG TABS 1 q 6 hr prn ENDOC ET 10-325 MG TABS 7172163 OXYCODONE-ACETAMINOPHEN Inactive HYDROCODONE-ACETAMINOPHEN 7.5-325 MG TABS 1 by mouth e very 6 hours as needed for pain HYDROCODONE-ACETAMINOPHEN 7.5-325 MG TABS 016974 HYDROCODONE-ACETAMINOPHEN Inactive PERCOCET 7.5-325 MG TABS 1 PO q 8 hrs PRN pain PERCOCET 7.5-325 MG TABS 1613906 OXYCODONE-ACETAMINOPHEN Inactive LIDODERM 5 % PTCH One patch to painful area [place]. On for 12 hrs, off for 12 hrs. LIDODERM 5 % [facility] [id number] LIDOCAINE Inactiv e PERCOCET 7.5-325 MG TABS 1 PO tid PRN pain PERCOCET 7.5- 325 MG TABS 5572431 OXYCODONE-ACETAMINOPHEN Inactive MOBIC 15 MG TABS 1 tab daily MOBIC 15 MG TABS 15 2695 MELOXICAM Inactive CYCLOBENZAPRINE HCL 10 MG TABS 1/2 - 1 tab PO tid PRN back p ain, muscle spasm CYCLOBENZAPRINE HCL 10 MG TABS 320626 CYCLOBENZA JOSEPH HCL Inactive LORATADINE 10 MG TABS 1 tablet by mouth daily LORATADINE 10 MG TABS 246898 LORATADINE Inactive HYDROCODONE-ACETAMINOPHEN 10-325 MG TABS 1 by mouth ev chaka 8 hours as needed for pain HYDROCODONE-ACETAMINOPHEN 10-325 MG TABS 202637 HYDROCODONE-ACETAMINOPHEN Inactive LC-5 LIDOCAINE 5 % CREA apply 1 time daily to affected area 2013 LC-5 LIDOCAINE 5 % CREA 7054944 LIDOCAINE (ANORECTAL) In active PERCOCET 5-325 MG TAB 1 every 6 hours as needed PERCOCET 5-325 MG TAB 9790716 OXYCODONE-ACETAMINOPHEN Inactive KEFLEX 500 MG CAP 1 po qid KEFLEX 500 MG CAP 30 9114 CEPHALEXIN Inactive PROAIR HFA 108 (90 BASE) MCG/ACT AERS 2 puff q 4-6 hrs PRN 01/24 PROAIR HFA 108 (90 BASE) MCG/ACT AERS ALBUTEROL SULFATE Inactive PERCOCET 10-325 MG ORAL TABS 1 every 4 hours as needed PERCOCET 10-325 MG ORAL TABS 3883573 OXYCODONE-ACETAMINOPHEN Inactiv e EMLA 2.5-2.5 % EXT CREA apply to skin lesion q 6 hours, prn 2014 EMLA 2.5-2.5 % EXT CREA 394712 LIDOCAINE-PRILOCAINE Siri ctive PERCOCET 10-325 MG TABS 1 tab by mouth every 6 hours , use sparingly for severe pain PERCOCET 10-325 MG TABS 6514226 OXYCODONE-ACETAMINOPHEN Inactive GLUCOPHAGE 500 MG ORAL TABS one by mouth 3 times a day GLUCOPHAGE 500 MG ORAL TABS 647105 METFORMIN HCL Inactive HYDROCODONE-ACETAMINOPHEN 5-325 MG TABS 1 po q6hr PRN pain 06/30 HYDROCODONE-ACETAMINOPHEN 5-325 MG TABS 914179 HYDROCOD ONE-ACETAMINOPHEN Inactive PERCOCET 5-325 MG TAB 1 tab po q 6 -8 hours, prn for severe pain PERCOCET 5-325 MG TAB 4004320 OXYCODONE-ACETAMINOPHEN In active PERCOCET 5-325 MG ORAL TABS 1 every 6 hours as needed PERCOCET 5-325 MG ORAL TABS 0687799 OXYCODONE-ACETAMINOPHEN Inactive DICLOFENAC SODIUM 50 MG TBEC 1 tablet by mouth four times da tom PRN Pain DICLOFENAC SODIUM 50 MG TBEC 980855 DICLOFENAC S ODIUM Inactive AUGMENTIN 500-125 MG ORAL TABS 1 by mouth twice a day AUGMENTIN 500-125 MG ORAL TABS 158379 AMOXICILLIN-POT CLAVULANATE I nactive HYDROCODONE-ACETAMINOPHEN 5-325 MG TABS 1 po q6hr PRN Pain 03/09 HYDROCODONE-ACETAMINOPHEN 5-325 MG TABS 202132 HYDROCOD ONE-ACETAMINOPHEN Inactive CYCLOBENZAPRINE HCL 10 MG TABS 1 tablet by mouth three times daily as needed for muscle spasm/pain CYCLOBENZAPRINE HCL 10 MG TABS [id number] CYCLOBENZAPRINE HCL Inactive SPRINTEC 28 0.25-35 MG-MCG TABS 1 pill by mouth daily for bi rth control SPRINTEC 28 0.25-35 MG-MCG TABS [id number] NORGESTIMATE-ETH ESTRADIOL Inactive PERCOCET 5-325 MG TAB 1 tab po q 6 hours, prn severe pain PERCOCET 5-325 MG TAB [id number] OXYCODONE-ACETAMINOPHEN Inactive IBUPROFEN 600 MG ORAL TABS 1 by mouth twice a day 2014 IBUPROFEN 600 MG ORAL TABS [id number] IBUPROFEN Inactive CYMBALTA 30 MG CPEP 1 cap by mouth daily CYMBALTA 30 MG CPEP [id number] DULOXETINE HCL Inactive HYDROCODONE-ACETAMINOPHEN 5-325 MG TABS 1 po q6hr PRN Pain 04/09 HYDROCODONE-ACETAMINOPHEN 5-325 MG TABS 146603 HYDROCOD ONE-ACETAMINOPHEN Inactive TRAZODONE HCL 100 MG TAB 0.5 to 1 po qHS PRN Insomnia TRAZODONE HCL 100 MG TAB 150858 TRAZODONE HCL Inactive ALPRAZOLAM 0.5 MG TABS 1 po BID PRN Anxiety ALPRAZOLAM 0.5 MG TABS [id number] ALPRAZOLAM Inactive [id number] 50-325-40 MG ORAL CAPS 1-2 po TID VT N Headache [id number] 50-325-40 MG ORAL CAPS 2 00153 [id number] Inactive HYDROCODONE-ACETAMINOPHEN 5-325 MG TABS 1 po TID PRN Pain 9 HYDROCODONE-ACETAMINOPHEN 5-325 MG TABS [id number] HYDROCODONE-ACETAMIN OPHEN Inactive PERCOCET 10-325 MG TABS 1 tablet every 8 hours as needed for antonia n PERCOCET 10-325 MG TABS [id number] OXYCODONE-ACETAMINOPHEN Inactive ONDANSETRON 4 MG TBDP 1 q4h PRN nausea ON DANSETRON 4 MG TBDP 514576 ONDANSETRON Inactive VIIBRYD 10 & 20 & 40 MG KIT 1 po qd as directed 07/24 VIIBRYD 10 & 20 & 40 MG KIT VILAZODONE HCL Inactive DICLOFENAC SODIUM 50 MG TBEC 1 tablet by mouth four times da tom PRN Pain DICLOFENAC SODIUM 50 MG TBEC [id number] DICLOFENAC S ODIUM Inactive PERCOCET 10-325 MG ORAL TABS one every 6 hours prn pain PERCOCET 10-325 MG ORAL TABS [id number] OXYCODONE-ACETAMINOPHEN Inactiv e PERCOCET 10-325 MG ORAL TABS take 1 tab by mouth q 4hours as needed for pain PERCOCET 10-325 MG ORAL TABS [id number] OXYCODONE-ACETAMINOPHEN Inactive FLONASE ALLERGY RELIEF 50 MCG/ACT NASAL SUSP One spray in each nostril twice a day. FLONASE ALLERGY RELIEF 50 MCG/ACT NASAL S [facility] [id number] FLUTICASONE PROPIONATE Inactive AUGMENTIN 875-125 MG TAB 1 tab by mouth twice daily with food 20 23/05/16 AUGMENTIN 875-125 MG TAB [id number] AMOXICILLIN-POT [place] Inactive HYDROCODONE-ACETAMINOPHEN 5-325 MG TABS 1 tab by mouth every 6 hours as needed for pain HYDROCODONE-ACETAMINOPHEN 5-325 MG TABS 8 [id number] HYDROCODONE-ACETAMINOPHEN Inactive AMOXICILLIN 875 MG TABS 1 tab by mouth twice daily 201 07/18/07 AMOXICILLIN 875 MG TABS [id number] AMOXICILLIN Inactive KEFLEX 500 MG CAP 1 po tid x 10 days KEFLEX 500 MG CAP [id number] CEPHALEXIN Inactive AMOXICILLIN 875 MG TABS 1 tab by mouth twice daily 201 07/19/27 AMOXICILLIN 875 MG TABS 120422 AMOXICILLIN Inactive AMOXICILLIN 875 MG TABS 1 tab by mouth twice daily 201 08/09/13 AMOXICILLIN 875 MG TABS 604559 AMOXICILLIN Inactive CIPRO 500 MG TAB 1 tablet by mouth twice daily CIPRO 500 MG TAB [id number] CIPROFLOXACIN HCL Inactive BACTRIM DS 800-160 MG TAB 1 tab by mouth twice daily 2 BACTRIM DS 800-160 MG TAB 696714 TRIMETHOPRIM-SULFAMETHOXAZOLE Inac tive LEVAQUIN 500 MG TABS 1 PO q day x 7 days LEVAQUIN 500 MG TABS 501758 LEVOFLOXACIN Inactive CLINDAMYCIN HCL 300 MG CAPS 1 po QID x 7 days CLINDAMYCIN HCL 300 MG CAPS 852568 CLINDAMYCIN HCL Inactive AUGMENTIN 875-125 MG TAB 1 tab by mouth twice daily with food 20 22/05/07 AUGMENTIN 875-125 MG TAB 759370 AMOXICILLIN-POT [place] Inactive DIFLUCAN 150 MG TAB 1 qODay x 2 doses DIFLUCAN 150 MG TAB 601465 FLUCONAZOLE Inactive PREDNISONE 20 MG TAB 2 tabs daily for 3 days, 1 t ab daily for 3 days, 1/2 tab daily for 2 days PREDNISONE 20 MG TAB 392560 PREDNISON E Inactive AUGMENTIN 875-125 MG TAB 1 tab by mouth twice daily with food 20 21/10/13 AUGMENTIN 875-125 MG TAB 455248 AMOXICILLIN-POT [place] Inactive HYDROCODONE-ACETAMINOPHEN 5-325 MG TABS 1 tab by mouth every 6 hours as needed PRN Pain HYDROCODONE-ACETAMINOPHEN 5-325 MG TABS 8 35888 HYDROCODONE-ACETAMINOPHEN Inactive PROMETHAZINE HCL 25 MG TABS 1 four times a day as needed for nausea/vomiting PROMETHAZINE HCL 25 MG TABS 631922 PROMETHAZINE HCL Inactive Advance Directives Directive Description Start Date PERMISSION TO SHARE Immunizations Vaccine Administration Date Value Standard Alf cription Seasonal influenza vaccine, injectable, containing preservative, for > 3 years old (Afluria, FluLaval, Fluzone, Fluvirin, Fluarix, Agriflu(>= 18 yo)) Fluzone (>3 yrs.) [[id number]] Influenza, seasonal, inject able Seasonal influenza vaccine, injectable, preservative free, for > 3 years old (Afluria, FluLaval, Fluzone, Fluvirin, Fluarix, Agriflu(>= 18 yo)) Fluzone preservative free (>3 yrs.) [[id number]] Influenza, seasonal, injectable, preservative free Seasonal influenza vaccine, injectable, containing preservative, for > 3 years old (Afluria, FluLaval, Fluzone, Fluvirin, Fluarix, Agriflu(>= 18 yo)) Fluzone (>3 yrs.) [[id number]] Influenza, seasonal, inject able Seasonal influenza vaccine, injectable, containing preservative, for > 3 years old (Afluria, FluLaval, Fluzone, Fluvirin, Fluarix, Agriflu(>= 18 yo)) Fluzone (>3 yrs.) [[id number]] Influenza, seasonal, inject able dT (Diphtheria and [...] Panel - Chemistry sodium, serum 142 mmol/L [phone]/05/12 potassium, serum 4.8 mmol/L 3.5-5.2 chloride, serum [...] Panel - Chemistry cholesterol, serum 165 mg/dL [phone]/05/12 triglyceride, serum, fasting 524 mg/dL 30-200 HDL cholesterol, serum 24 mg/dL 32-96 cholesterol, serum 181 mg/dL [phone]/09/01 triglyceride, serum, fasting 341 mg/dL 30-200 HDL [...] negative Encounters Code Encounter Date Provider Facility CPT-52287 Level 3 Est. Patient 21:00:18 ACOUSTIC ENGINEER Rajni danielson [facility] CPT-83495 Level 3 Est. Patient 14:15:00 ACOUSTIC ENGINEER Kalpesh goins MD [facility]-30278 Level 2 Est. Patient 19:57:52 ACOUSTIC ENGINEER Rajni Oconnor [facility] CPT-83191 Level 3 Est. Patient 16:58:40 ACOUSTIC ENGINEER Bj funes MD [facility]-08776 Level 3 Est. Patient 08:51:33 CDT Kalpesh goins MD [facility] CPT-17736 Level 4 Est. Patient 14:14:53 CDT Abdirahman Rios MD [facility] CPT-99630 Level 3 Est. Patient 15:47:40 CDT Kalpesh goins MD [facility] CPT-31486 Level 3 Est. Patient 10:57:26 CDT Abdirahman Rios MD [facility] CPT-02934 Level 3 Est. Patient 14:29:53 CDT Abhinav Galvan MD [facility] CPT-91388 Level 2 Est. Patient 16:33:01 CDT Kalpesh goins MD [facility]-98671 Level 4 Est. Patient 16:44:56 CDT Abdirahman Rios MD [facility] CPT-72883 Level 2 Est. Patient 07:49:32 CDT Kalpesh goins MD [facility] CPT-43085 Level 3 New Patient 15:47:11 ACOUSTIC ENGINEER Bj huber MD [facility] CPT-48871 Level 4 Est. Patient 14:37:38 ACOUSTIC ENGINEER Abdirahman Rios MD [facility] CPT-28230 Level 2 Est. Patient 13:32:17 ACOUSTIC ENGINEER Kalpesh goins MD [facility] CPT-37555 Level 3 Est. Patient 17:32:57 ACOUSTIC ENGINEER Edilberto tiwari [facility] CPT-21814 Level 3 Est. Patient 17:22:33 ACOUSTIC ENGINEER Edilberto tiwari [facility] CPT-41875 Level 2 Est. Patient 16:57:09 ACOUSTIC ENGINEER Kalpesh goins MD [facility]-60940 Level 3 Est. Patient 14:03:08 ACOUSTIC ENGINEER Abdirahman Rios MD [facility] CPT-00112 Level 3 Est. Patient 18:12:34 CDT Shola Wright [facility] CPT-37008 Level 3 Est. Patient 19:34:46 CDT Shola Wright [facility] CPT-41408 Level 3 Est. Patient 14:19:37 CDT Abdirahman Rios MD [facility] CPT-91332 Level 3 Est. Patient 14:11:58 CDT Kalpesh goins MD [facility] CPT-99454 Level 3 Est. Patient 16:50:00 CDT Michelle MERCADO [facility] CPT-38126 Level 3 Est. Patient 17:11:32 ACOUSTIC ENGINEER Brandie bates MD PhD [facility] CPT-15187 Level 3 Est. Patient 16:31:47 ACOUSTIC ENGINEER Shola Wright [facility] CPT-85613 Level 3 Est. Patient 17:51:10 ACOUSTIC ENGINEER Abhinav Galvan MD [facility] CPT-17810 Level 4 Est. Patient 12:54:56 ACOUSTIC ENGINEER Kalpesh goins MD [facility] CPT-66434 Level 4 Est. Patient 12:53:56 ACOUSTIC ENGINEER Kalpesh goins MD [facility]-90118 Level 3 Est. Patient 17:56:58 CDT Shola Wright [facility] CPT-54340 Level 3 Est. Patient 14:26:20 CDT Janak butcher [facility] CPT-89552 Level 3 Est. Patient 09:38:41 CDT Shola Thao [facility] CPT-96403 Level 3 Est. Patient 14:45:26 CDT Edilberto tiwari [facility]-45641 Level 3 Est. Patient 10:51:33 CDT [facility] CPT-25109 Level 3 Est. Patient 11:57:55 ACOUSTIC ENGINEER Shola Thao Adriana [facility] CPT-61125 Level 3 Est. Patient 09:53:33 ACOUSTIC ENGINEER Edilberto tiwari [facility] CPT-41564 Level 3 Est. Patient 14:42:54 ACOUSTIC ENGINEER Abhinav Galvan MD [facility] CPT-49844 Level 3 Est. Patient 15:10:02 CDT Janak butcher [facility] CPT-00581 Level 3 Est. Patient 15:20:20 CDT Theo dennis MD [facility] CPT-33354 Level 2 Est. Patient 14:08:57 CDT Kalpesh goins MD [facility]-20203 Level 3 Est. Patient 13:56:19 CDT Abdirahman Rios MD [facility] CPT-82694 Level 3 Est. Patient 13:59:37 CDT Abdirahman Rios MD [facility] CPT-96362 Level 2 Est. Patient 14:44:59 CDT Kalpesh goins MD [facility] CPT-31104 Level 3 Est. Patient 06:06:23 CDT Edilberto tiwari DO [facility] CPT-77640 Level 3 Est. Patient 15:23:54 CDT Abdirahman Rios MD [facility] CPT-98281 Level 3 Est. Patient 15:43:49 CDT Abdirahman Rios MD [facility] CPT-94995 Level 3 Est. Patient 12:46:47 ACOUSTIC ENGINEER Abdirahman Rios MD [facility] CPT-06857 Level 3 Est. Patient 08:13:35 ACOUSTIC ENGINEER Abdirahman Rios MD [facility] CPT-87845 Level 2 Est. Patient 09:36:42 ACOUSTIC ENGINEER Abdirahman Rios MD [facility] CPT-74478 Level 3 Est. Patient 10:56:43 CDT Abdirahman Rios MD [facility] CPT-85629 Level 3 Est. Patient 18:24:52 CDT Abdirahman Rios MD [facility] CPT-06454 Level 3 Est. Patient 13:27:22 CDT Abdirahman Rios MD [facility] Procedures Code Procedure Name Date Entry Date Standard Desc ription CPT-74120 Postop F/U Visit 15:18:16 ACOUSTIC ENGINEER CPT-87211 Postop F/U Visit 15:03:49 ACOUSTIC ENGINEER CPT-91224 Postop F/U Visit 14:45:23 ACOUSTIC ENGINEER CPT-66278 Postop F/U Visit 14:11:03 ACOUSTIC ENGINEER CPT-65454 Postop F/U Visit 18:21:21 ACOUSTIC ENGINEER CPT-28263 Postop F/U Visit 15:57:12 ACOUSTIC ENGINEER CPT-02735 Bladder Instillation 16:58:41 ACOUSTIC ENGINEER 6 CPT-81345 Fluzone Quadrivalent Intramuscular Suspe nsion 0.5 ML 15:20:56 ACOUSTIC ENGINEER CPT-15229 Immunization Single Admin 15:20:56 ACOUSTIC ENGINEER 2014 CPT-23395 Excis pilonidal cyst simple 08:51:34 CDT 20 22/04/20 CPT-78875 Venipuncture Draw Fee 14:27:29 CDT CPT-83877 Postop F/U Visit 15:27:43 CDT CPT-20766 Postop F/U Visit 14:40:59 CDT CPT-26677 Postop F/U Visit 15:02:46 CDT CPT-22672 Postop F/U Visit 11:29:00 ACOUSTIC ENGINEER CPT-J0696 Rocephin 1000 mg (Ceftriaxone) 17:22:33 ACOUSTIC ENGINEER CPT-47103 Postop F/U Visit 18:41:07 ACOUSTIC ENGINEER CPT-36196 Postop F/U Visit 08:19:08 ACOUSTIC ENGINEER CPT-67058 Immunization Single Admin 16:41:53 CDT 2013 CPT-36290 Fluzone Quadrivalent Intramuscular Suspe nsion 0.5 ML 16:41:53 CDT CPT-OV Office Visit 16:39:18 CDT CPT-OV Office Visit 16:16:36 CDT CPT-OV Office Visit 15:34:48 CDT CPT-85532 Postop F/U Visit 14:50:12 CDT CPT-28905 Postop F/U Visit 14:41:10 CDT CPT-35285 Venipuncture Draw Fee 11:38:04 ACOUSTIC ENGINEER CPT-67714 Postop F/U Visit 19:02:59 ACOUSTIC ENGINEER CPT-55961 Postop F/U Visit 12:04:54 ACOUSTIC ENGINEER CPT-87453 Administration single or combination vac cine inc oral 15:56:43 CDT CPT-38064 Influenza split virus > age 3 15:56:43 CDT CPT-81613 Hand comp min 3V 14:25:19 CDT CPT-54446 Postop F/U Visit 21:40:51 CDT CPT-04524 Postop F/U Visit 10:58:43 CDT CPT-61747 Administration single or combination vac cine inc oral 12:33:54 ACOUSTIC ENGINEER CPT-72413 Influenza Preservative Free split virus >age 3 12:33:54 ACOUSTIC ENGINEER CPT-37716 Administration single or combination vac cine inc oral 09:30:51 CDT CPT-70832 Influenza split virus > age 3 09:30:51 CDT CPT-33113 Postop F/U Visit 15:14:53 CDT CPT-92145 Postop F/U Visit 13:50:14 CDT CPT-24377 Postop F/U Visit 13:34:52 CDT CPT-OV Office Visit 16:55:03 CDT CPT-27262 [place] of cervix w bx ECC 13:32:50 CDT 10/19 CPT-J1885 Toradol 60 mg (Ketorolac) 15:31:59 CDT 2011 CPT-J1885 Toradol 60 mg (Ketorolac) 15:23:54 CDT 2011 CPT-72011 Visit 11:34:37 ACOUSTIC ENGINEER CPT-27209 Visit 10:52:39 ACOUSTIC ENGINEER CPT-36118 Visit 10:12:02 ACOUSTIC ENGINEER CPT-84954 Visit 11:22:43 ACOUSTIC ENGINEER CPT-83290 Visit 11:24:12 ACOUSTIC ENGINEER CPT-81780 Visit 10:47:05 ACOUSTIC ENGINEER CPT-OV Office Visit 10:26:16 ACOUSTIC ENGINEER CPT-OV Office Visit 15:34:31 ACOUSTIC ENGINEER CPT-32523 Visit 10:42:08 ACOUSTIC ENGINEER CPT-47194 Visit 10:52:45 ACOUSTIC ENGINEER CPT-000 Give Appropriate Flu Vaccine 16:56:41 CDT 2 CPT-30953 Administration single or combination vac cine inc oral 10:33:21 CDT CPT-72890 Influenza split virus > age 3 10:33:21 CDT CPT-23044 Visit 13:23:09 CDT CPT-96467 Visit 18:24:52 CDT CPT-68206 Sono OB comp > 14 weeks 12:07:49 CDT 04/07
--- OUTSIDE RECORDS SUMMARY | 2020-01-18 16:37 | XMS REPORT | Clinical Summary ---
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 Chronic pain syndrome AFTERCARE FOLLOW SURGERY SKIN&SUBCUT [...] Generic Name NDC Status Provider Patient Instruction [id number] 50-325-40 MG ORAL TABS 1 po TID PRN Headaches [id number] Active Abdirahman owen MD Active CHANTIX STARTING MONTH MARGARITA 0.5 MG X 11 & 1 MG X 42 TAB S 0.5mg daily for 3 days, then 0.5mg BID for 4 days, then 1mg BID VARENICL INE TARTRATE 43934812502 Active Abdirahman Rios MD Active AMOXICILLIN 500 MG CAPS 2 po BID x 10 days AMOX ICILLIN 24557866311 No Longer Active Abdirahman Rios MD Active PROMETHAZINE HCL 25 MG TABS 1 four times a day as needed for nausea/vomiting PROMETHAZINE HCL 92245517484 No Longer Active Abdirahman Rios MD Active LC-4 LIDOCAINE 4 % EXT CREA apply q 6 hours, prn 08/03 LIDOCAINE 76779456897 No Longer Active Kalpesh Dong MD Active PERCOCET 10-325 MG TABS 1 tablet every 8 hours as needed for antonia n OXYCODONE-ACETAMINOPHEN 94898020995 No Longer Active Kalpesh Dong MD Active HYDROCODONE-ACETAMINOPHEN 5-325 MG TABS 1 tab by mouth every 6 hours as needed for pain HYDROCODONE-ACETAMINOPHEN 34543507392 No Longer Active Kalpesh Dong MD Active PERCOCET 10-325 MG ORAL TABS 1 every 4 hous as needed OXYCODONE-ACETAMINOPHEN 31693168937 Active Hira Moser APRN Active GLYDO 2 % EXT GEL apply to painful areas as needed LIDOCAINE HCL 81898939007 Active Kalpesh Dong MD Active LC-4 LIDOCAINE 4 % EXT CREA apply to painful area every 12 h ours or as needed LIDOCAINE 49997821058 Active Kalpesh Dong MD Active AUGMENTIN 875-125 MG TAB 1 tab by mouth twice daily with food 20 23/05/16 AMOXICILLIN-POT CLAVULANATE 58283302330 No Longer Active Lizeth hi Yokum [employer] SE[employer]ER 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 FLUTICASONE PROPIONATE 05165834407 No Longer Ac tive Rajni Yokum [employer]AGE SE[employer]ER Active PERCOCET 10-325 MG ORAL TABS take 1 tab by mouth q 4hours as needed for pain OXYCODONE-ACETAMINOPHEN 45120528270 No Longer Active Rajni Yokum [employer] SE[employer]ER Active PERCOCET 10-325 MG ORAL TABS one every 6 hours prn pain OXYCODONE-ACETAMINOPHEN 56147190201 No Longer Active Rajni Yokum [employer] SE[employer]ER Active IBUPROFEN 800 MG TABS 1 tab po tid, with food I BUPROFEN 28965759739 Active Hira Perazal [employer]AGE SE[employer]ER Active DICLOFENAC SODIUM 50 MG TBEC 1 tablet by mouth four times da tom PRN Pain DICLOFENAC SODIUM 56648315595 No Longer Active Rajni [employer]okum [employer] SE[employer]ER Active VIIBRYD 10 & 20 & 40 MG KIT 1 po qd as directed 07/24 VILAZODONE HCL 74959328735 No Longer Active Rajni Yokum [employer] SE[employer]ER Active ONDANSETRON 4 MG TBDP 1 q4h PRN nausea ONDANSET KELBY 57326143703 No Longer Active Rajni Yokum [employer] SE[employer]ER Active PERCOCET 10-325 MG TABS 1 tablet every 8 hours as needed for antonia n OXYCODONE-ACETAMINOPHEN 69078779555 No Longer Active Rajni Y okum [employer]AGE SE[employer]ER Active HYDROCODONE-ACETAMINOPHEN 5-325 MG TABS 1 po TID PRN Pain 9 HYDROCODONE-ACETAMINOPHEN 19696378043 No Longer Active Abdirahman Rios MD Active [id number] 50-325-40 MG ORAL CAPS 1-2 po TID AL N Headache [id number] 40562602499 No Longer Act krishna Kalpesh Dong MD Active ALPRAZOLAM 0.5 MG TABS 1 po BID PRN Anxiety ALP RAZOLAM 19929572789 No Longer Active Kalpesh Dong MD Active TRAZODONE HCL 100 MG TAB 0.5 to 1 po qHS PRN Insomnia TRAZODONE HCL 03329663611 No Longer Active Kalpesh Dong MD Activ e HYDROCODONE-ACETAMINOPHEN 5-325 MG TABS 1 po q6hr PRN Pain 04/09 HYDROCODONE-ACETAMINOPHEN 63299597165 No Longer Active Kalpesh Dong MD Active CYMBALTA 30 MG CPEP 1 cap by mouth daily DULOXE CLEO HCL 38772896409 No Longer Active Abdirahman Rios MD Active IBUPROFEN 600 MG ORAL TABS 1 by mouth twice a day 2014 IBUPROFEN 76589583123 No Longer Active Abdirahman Rios MD Activ e PERCOCET 5-325 MG TAB 1 tab po q 6 hours, prn severe pain 1 OXYCODONE-ACETAMINOPHEN 50955753909 No Longer Active Abdirahman Rios MD Active SPRINTEC 28 0.25-35 MG-MCG TABS 1 pill by mouth daily for bi rth control NORGESTIMATE-ETH ESTRADIOL 67918706628 No Longer Acti ve Hira Moser [employer]AGE SE[employer]ER Active CYCLOBENZAPRINE HCL 10 MG TABS 1 tablet by mouth three times daily as needed for muscle spasm/pain CYCLOBENZAPRINE HCL 94040453904 No Longer Active Hira Moser [employer]ACKAGE SE[employer]ER Active HYDROCODONE-ACETAMINOPHEN 5-325 MG TABS 1 po q6hr PRN Pain 03/09 HYDROCODONE-ACETAMINOPHEN 04537995981 No Longer Active Hira Peraza l PACKAGE SEALER Active AUGMENTIN 500-125 MG ORAL TABS 1 by mouth twice a day AMOXICILLIN-POT CLAVULANATE 45363685608 No Longer Active Hira Perazal [employer]ACKAGE SEALER Active DICLOFENAC SODIUM 50 MG TBEC 1 tablet by mouth four times da tom PRN Pain DICLOFENAC SODIUM 79326168626 No Longer Active Karenin a Karmenl [employer]ACKAGE SE[employer]ER Active PROMETHAZINE HCL 25 MG TABS 1 four times a day as needed for nausea/vomiting PROMETHAZINE HCL 36664488953 No Longer Active Abdirahman Rios MD Active HYDROCODONE-ACETAMINOPHEN 5-325 MG TABS 1 tab by mouth every 6 hours as needed PRN Pain HYDROCODONE-ACETAMINOPHEN 47567122238 No Longer Active Abdirahman Rios MD Active GEMFIBROZIL 600 MG TABS 1 po BID GEMFIBROZIL 79534595 005 Active Abdirahman Rios MD Active PERCOCET 5-325 MG ORAL TABS 1 every 6 hours as needed OXYCODONE-ACETAMINOPHEN 63772109217 No Longer Active Abdirahman Rios MD Active PERCOCET 5-325 MG TAB 1 tab po q 6 -8 hours, prn for severe pain OXYCODONE-ACETAMINOPHEN 16475313297 No Longer Active Abdirahman Rios MD Active HYDROCODONE-ACETAMINOPHEN 5-325 MG TABS 1 po q6hr PRN pain 06/30 HYDROCODONE-ACETAMINOPHEN 09673030106 No Longer Active Hira Peraza l PACKAGE SEALER Active GLUCOPHAGE 500 MG ORAL TABS one by mouth 3 times a day METFORMIN HCL 43055103642 No Longer Active Hira Moser PACKAGE SEALER Ac tive PERCOCET 10-325 MG TABS 1 tab by mouth every 6 hours , use sparingly for severe pain OXYCODONE-ACETAMINOPHEN 54513967388 No Longer A ctive Abdirahman Rios MD Active EMLA 2.5-2.5 % EXT CREA apply to skin lesion q 6 hours, prn 2014 LIDOCAINE-PRILOCAINE 43466346976 No Longer Active Abdirahman Rios MD Active PERCOCET 10-325 MG ORAL TABS 1 every 4 hours as needed OXYCODONE-ACETAMINOPHEN 75681778202 No Longer Active Abdirahman Rios MD Active AUGMENTIN 875-125 MG TAB 1 tab by mouth twice daily with food 20 21/10/13 AMOXICILLIN-POT CLAVULANATE 62977874505 No Longer Active Ursula jasmina Frazell PACKAGE SEALER Active PROAIR HFA 108 (90 BASE) MCG/ACT AERS 2 puff q 4-6 hrs PRN 01/24 ALBUTEROL SULFATE 23547218242 No Longer Active Kalpesh Dong MD Active PREDNISONE 20 MG TAB 2 tabs daily for 3 days, 1 t ab daily for 3 days, 1/2 tab daily for 2 days PREDNISONE 30719786850 No Longer Active Abdirahman Rios MD Active KEFLEX 500 MG CAP 1 po qid CEPHALEXIN 387048736 20 No Longer Active Kalpesh Dong MD Active PERCOCET 5-325 MG TAB 1 every 6 hours as needed OXYCODONE-ACETAMINOPHEN 68341599717 No Longer Active Shola MCGILL Active LC-5 LIDOCAINE 5 % CREA apply 1 time daily to affected area 2013 LIDOCAINE (ANORECTAL) 48183414743 No Longer Active Hira F radhaell [employer]ACKAGE SEALER Active HYDROCODONE-ACETAMINOPHEN 10-325 MG TABS 1 by mouth ev chaka 8 hours as needed for pain HYDROCODONE-ACETAMINOPHEN 12709752065 No Longer Active Jillina Frazell PACKAGE SEALER Active LORATADINE 10 MG TABS 1 tablet by mouth daily L ORATADINE 42920982835 No Longer Active Jillina Frazell PACKAGE SEALER Active DIFLUCAN 150 MG TAB 1 qODay x 2 doses FLUCONAZO LE 69160219610 No Longer Active Jillina Frazell [employer]ACKAGE SEALER Active CYCLOBENZAPRINE HCL 10 MG TABS 1/2 - 1 tab PO tid PRN back p ain, muscle spasm CYCLOBENZAPRINE HCL 08939888480 No Longer Active Karen Moser APRN Active AUGMENTIN 875-125 MG TAB 1 tab by mouth twice daily with food 20 22/05/07 AMOXICILLIN-POT CLAVULANATE 99770626253 No Longer Active Loida Rios MD Active MOBIC 15 MG TABS 1 tab daily MELOXICAM 190020858 14 No Longer Active Abdirahman Rios MD Active PERCOCET 7.5-325 MG TABS 1 PO tid PRN pain OXYCODONE-ACETAMINOPHEN 34204034232 No Longer Active Abdirahman Rios MD Active LIDODERM 5 % PTCH One patch to painful area AL N. On for 12 hrs, off for 12 hrs. LIDOCAINE 65836880193 No Longer Active Abdirahman Rios MD Active PERCOCET 7.5-325 MG TABS 1 PO q 8 hrs PRN pain OXYCODONE-ACETAMINOPHEN 90874282065 No Longer Active Shola MCGILL Active HYDROCODONE-ACETAMINOPHEN 7.5-325 MG TABS 1 by mouth e very 6 hours as needed for pain HYDROCODONE-ACETAMINOPHEN 30549227576 No Longer Active Good Julian MD Active CLINDAMYCIN HCL 300 MG CAPS 1 po QID x 7 days CLINDAMYCIN HCL 98680065910 No Longer Active Abdirahman Rios MD Activ e BACTRIM DS 800-160 MG TABS 1 po BID x 7 days 5 SULFAMETHOXAZOLE-TRIMETHOPRIM 09920378501 No Longer Active Abdirahman Rios MD Active ENDOCET 10-325 MG TABS 1 q 6 hr prn OXYCODONE-ACETAMINOPHEN 86313587720 No Longer Active Abdirahman Rios MD Active IBUPROFEN 800 MG TABS 1 tid prn IBUPROFEN 403316 39447 No Longer Active Abdirahman Rios MD Active BACTRIM DS 800-160 MG TABS by mouth twice a day 11/05 SULFAMETHOXAZOLE-TRIMETHOPRIM 39849386417 No Longer Active Good Julian MD Active HYDROCODONE-ACETAMINOPHEN 7.5-325 MG TABS 1 four times a day as needed for pain HYDROCODONE-ACETAMINOPHEN 24877515559 No Longer Activ e Good Julian MD Active KEFLEX 500 MG CAP 1 tab po tid CEPHALEXIN 879420 33208 No Longer Active Hira Moser APRN Active IBUPROFEN 800 MG TAB 1 pill three times daily as needed for pain IBUPROFEN 66549613956 No Longer Active Kalpesh Dong MD Active PROMETHAZINE-CODEINE 6.25-10 MG/5ML SYRP 1 tsp every 6 hrs prn c ough PROMETHAZINE-CODEINE 94744563533 No Longer Active Kalpesh Carr Active HYDROCODONE-ACETAMINOPHEN 5-325 MG TABS 1 tab by mouth every 6 hours as needed HYDROCODONE-ACETAMINOPHEN 32989485724 No Longer Activ e Shola MCGILL Active CEPHALEXIN 500 MG CAPS 1 PO bid x 7 days CEPHAL EXIN 95716684059 No Longer Active Shola MCGILL Active BACTRIM DS 800-160 MG TAB 1 tab by mouth twice daily 2 TRIMETHOPRIM-SULFAMETHOXAZOLE 88207468622 No Longer Active Kalpesh Dong MD Active HYDROCODONE-ACETAMINOPHEN 5-325 MG TABS 1 PO tid PRN pain 5 HYDROCODONE-ACETAMINOPHEN 28270433581 No Longer Active Abhinav Galvan MD Active IMPLANON 68 MG IMPL IMPLANTED IN LEFT ARM ETONO GESTREL 07423807597 No Longer Active Hira Moser APRN Active AMOXICILLIN 500 MG TABS 2 tabs PO bid x 10 d AM OXICILLIN 34021059893 No Longer Active Kalpesh Dong MD Active LEVAQUIN 500 MG TABS 1 PO q day x 7 days LEVOFL OXACIN 14806250633 No Longer Active Shola MCGILL Active AMITRIPTYLINE HCL 25 MG TAB 1 tab by mouth daily 60 minutes before bedtime AMITRIPTYLINE HCL 91770928483 No Longer Active Shola MCGILL Active LORTAB 5 5-500 MG TABS 1/2 to 1 tablet by mouth go ry 6 hours as needed for pain HYDROCODONE-ACETAMINOPHEN 49492552065 No Longer Active Shola MCGILL Active CEPHALEXIN 500 MG TABS Take one by mouth four times daily, morning, noon, early evening and bedtime. CEPHALEXIN 20592063151 No Long er Active Hira Moser APRN Active TYLENOL/CODEINE #3 300-30 MG TAB 1-2 po q6hr PRN Pain ACETAMINOPHEN-CODEINE 36185489368 No Longer Active Edilberto Marino DO Active PRISTIQ 50 MG [id number] 1 po qd DESVENLAFAXI NE SUCCINATE 32611608209 No Longer Active Edilberto Marino DO Active PENICILLIN V POTASSIUM 500 MG TAB 1 four times a day 2 PENICILLIN V POTASSIUM 79652855398 No Longer Active Edilberto Marino DO Active DOXYCYCLINE HYCLATE 100 MG CAPS Take one (1) tablet by mouth twice a day DOXYCYCLINE HYCLATE 59628129749 No Longer Active Ronnie Galvan MD Active HYDROCODONE-ACETAMINOPHEN 5-325 MG TABS 1 po q 6hr PRN Pain 2011 HYDROCODONE-ACETAMINOPHEN 67482317373 No Longer Active Patri joan Perez RN Active BACTRIM DS 800-160 MG TAB 1 tab by mouth twice daily 2 TRIMETHOPRIM-SULFAMETHOXAZOLE 97714268630 No Longer Active Kalpesh Dong MD Active LORTAB 5 5-500 MG TABS 1/2 to 1 tablet by mouth go ry 4 hours as needed for pain HYDROCODONE-ACETAMINOPHEN 96207678844 No Longer Active Kalpesh Dong MD Active GENERESS FE 0.8-25 MG-MCG CHEW Take one by mouth daily NORETHIN-ETH ESTRADIOL-FE 83863341883 No Longer Active Kalpesh Dong MD Active HYDROCODONE-ACETAMINOPHEN 7.5-500 MG TABS 1-2 every 4 hours as needed HYDROCODONE-ACETAMINOPHEN 13504220782 No Longer Activ e Kalpesh Dong MD Active FERROUS SULFATE 325 (65 FE) MG TABS 1 tablet by mouth twice yung y FERROUS SULFATE 71770456618 No Longer Active Kalpesh Dong MD Active IBUPROFEN 600 MG TAB 1 po q6-8hr PRN IBUPROFEN 08755350441 No Longer Active Kalpesh Dong MD Active SPIRONOLACTONE 25 MG TAB 1 tablet by mouth daily 01/22 SPIRONOLACTONE 94084698517 No Longer Active Kalpesh Dong MD Acti ve HYDROCODONE-ACETAMINOPHEN 7.5-325 MG TABS 1 po QID PRN Pain 2011 HYDROCODONE-ACETAMINOPHEN 32473431850 No Longer Active Kalpesh Dong MD Active CLINDAMYCIN HCL 300 MG CAPS 1 po q6hr x 7 days CLINDAMYCIN HCL 48539802887 No Longer Active Edilberto Marino DO Active PREDNISONE 20 MG TAB 2 tabs daily for 4 days, 1 t ab daily for 4 days, 1/2 tab daily for 4 days PREDNISONE 69500925996 No Longer Active Edilberto Marino DO Active PERCOCET 5-325 MG TABS 1 tablet by mouth every 6 hours as ne eded for pain OXYCODONE-ACETAMINOPHEN 49003791734 No Longer Active Abdirahman Rios MD Active VITAMINS TABS Take one by mouth daily MV & MIN W/FE-FA TABS 81366869198 No Longer Active Abdirahman Rios MD Active LUIS 3-0.02 MG TABS 1 tablet by mouth daily as directed DROSPIRENONE-ETHINYL ESTRADIOL 25375872971 No Longer Active Abdirahman Rios MD Active LORATADINE 10 MG TABS 1 tablet by mouth daily L ORATADINE 64472565546 No Longer Active Kalpesh Dong MD Active HYDROCODONE-ACETAMINOPHEN 5-325 MG TABS 1 po q 6hr PRN Pain 2010 HYDROCODONE-ACETAMINOPHEN 65035742260 No Longer Active Edilberto Marino DO Active BACTRIM DS 800-160 MG TAB 1 tab by mouth twice daily 2 TRIMETHOPRIM-SULFAMETHOXAZOLE 02201771340 No Longer Active Abdirahman Rios MD Active 28-0.8 MG TABS Take one by mouth daily 09/20 VIT-FE FUMARATE-FA 25757124584 No Longer Active Abdirahman Rios MD Active CIPRO 500 MG TAB 1 tablet by mouth twice daily CIPROFLOXACIN HCL 24585161446 No Longer Active Abdirahman Rios MD Active BENADRYL 25 MG CAP 1 po q8hr PRN Congestion DIPHENHYDRAMINE HCL 97713532935 No Longer Active Abdirahman Rios MD Active ZOLOFT 50 MG TAB 1 po qd SERTRALINE HCL 174150 61207 No Longer Active Abdirahman Rios MD Active AMOXICILLIN 875 MG TABS 1 tab by mouth twice daily 201 08/09/13 AMOXICILLIN 06299959138 No Longer Active Abdirahman Rios MD Activ e AMOXICILLIN 875 MG TABS 1 tab by mouth twice daily 201 07/19/27 AMOXICILLIN 57227055193 No Longer Active Abdirahman Rios MD Activ e BACTRIM DS 800-160 MG TAB 2 tab by mouth twice daily 2 TRIMETHOPRIM-SULFAMETHOXAZOLE 60461175689 No Longer Active Abdirahman Rios MD Active KEFLEX 500 MG CAP 1 po tid x 10 days CEPHALEXIN 00822719362 No Longer Active Abdirahman Rios MD Active AMOXICILLIN 875 MG TABS 1 tab by mouth twice daily 201 07/18/07 AMOXICILLIN 86738548628 No Longer Active Abdirahman Rios MD Activ e BACTRIM DS 800-160 MG TAB 2 tab by mouth twice daily 2 BACTRIM DS 800-160 MG TAB 427014 TRIMETHOPRIM-SULFAMETHOXAZOLE Inactive ZOLOFT 50 MG TAB 1 po qd ZOLOFT 50 MG TAB 3129 41 SERTRALINE HCL Inactive BENADRYL 25 MG CAP 1 po q8hr PRN Congestion BENADRYL 25 MG CAP 3260000 DIPHENHYDRAMINE HCL Inactive 28-0.8 MG TABS Take one by mouth daily 09/20 28-0.8 MG TABS VIT-FE FUMARATE-FA Inactive HYDROCODONE-ACETAMINOPHEN 5-325 MG TABS 1 po q 6hr PRN Pain 2010 HYDROCODONE-ACETAMINOPHEN 5-325 MG TABS 817091 HYDROCODONE-ACETAMINOPHEN Inactive LORATADINE 10 MG TABS 1 tablet by mouth daily LORATADINE 10 MG TABS 043779 LORATADINE Inactive LUIS 3-0.02 MG TABS 1 tablet by mouth daily as directed LUIS 3-0.02 MG TABS 373290 DROSPIRENONE-ETHINYL ESTRADIOL Inactive VITAMINS TABS Take one by mouth daily VITAMINS TABS MV & MIN W/FE-FA TABS Inactive PERCOCET 5-325 MG TABS 1 tablet by mouth every 6 hours as ne eded for pain PERCOCET 5-325 MG TABS 5928880 OXYCODONE-ACETAMIN OPHEN Inactive PREDNISONE 20 MG TAB 2 tabs daily for 4 days, 1 t ab daily for 4 days, 1/2 tab daily for 4 days PREDNISONE 20 MG TAB 237561 PREDNISON E Inactive CLINDAMYCIN HCL 300 MG CAPS 1 po q6hr x 7 days CLINDAMYCIN HCL 300 MG CAPS 621349 CLINDAMYCIN HCL Inactive HYDROCODONE-ACETAMINOPHEN 7.5-325 MG TABS 1 po QID PRN Pain 2011 HYDROCODONE-ACETAMINOPHEN 7.5-325 MG TABS 662924 HYDROCODONE-ACETAMINOPHEN Inactive SPIRONOLACTONE 25 MG TAB 1 tablet by mouth daily 01/22 SPIRONOLACTONE 25 MG TAB 275887 SPIRONOLACTONE Inactive IBUPROFEN 600 MG TAB 1 po q6-8hr PRN IBUPROFEN 600 MG TAB 941203 IBUPROFEN Inactive FERROUS SULFATE 325 (65 FE) MG TABS 1 tablet by mouth twice yung y FERROUS SULFATE 325 (65 FE) MG TABS 783031 FERROUS SULF ATE Inactive HYDROCODONE-ACETAMINOPHEN 7.5-500 MG TABS 1-2 every 4 hours as needed HYDROCODONE-ACETAMINOPHEN 7.5-500 MG TABS HYDROCODONE-ACETAMINOPHEN Inactive GENERESS FE 0.8-25 MG-MCG CHEW Take one by mouth daily GENERESS FE 0.8-25 MG-MCG CHEW [id number] NORETHIN-ETH ESTRADIOL-FE Inactive LORTAB 5 5-500 MG TABS 1/2 to 1 tablet by mouth go ry 4 hours as needed for pain LORTAB 5 5-500 MG TABS HYDROCODONE-A CETAMINOPHEN Inactive BACTRIM DS 800-160 MG TAB 1 tab by mouth twice daily 2 BACTRIM DS 800-160 MG TAB 180536 TRIMETHOPRIM-SULFAMETHOXAZOLE Inac tive HYDROCODONE-ACETAMINOPHEN 5-325 MG TABS 1 po q 6hr PRN Pain 2011 HYDROCODONE-ACETAMINOPHEN 5-325 MG TABS 730691 HYDROCODONE-ACETAMINOPHEN Inactive DOXYCYCLINE HYCLATE 100 MG CAPS Take one (1) tablet by mouth twice a day DOXYCYCLINE HYCLATE 100 MG CAPS 8299108 DOXYCYCLINE HYCLATE Inactive PENICILLIN V POTASSIUM 500 MG TAB 1 four times a day 2 PENICILLIN V POTASSIUM 500 MG TAB 734081 PENICILLIN V POTASSIUM Siri ctive PRISTIQ 50 MG [id number] 1 po qd PRISTIQ 50 MG [id number] DESVENLAFAXINE SUCCINATE Inactive TYLENOL/CODEINE #3 300-30 MG TAB 1-2 po q6hr PRN Pain TYLENOL/CODEINE #3 300-30 MG TAB 539244 ACETAMINOPHEN-CODEINE Inact krishna CEPHALEXIN 500 MG TABS Take one by mouth four times daily, morning, noon, early evening and bedtime. CEPHALEXIN 500 MG TABS 011722 CEPHALEXIN Inactive LORTAB 5 5-500 MG TABS 1/2 to 1 tablet by mouth go ry 6 hours as needed for pain LORTAB 5 5-500 MG TABS HYDROCODONE-A CETAMINOPHEN Inactive AMITRIPTYLINE HCL 25 MG TAB 1 tab by mouth daily 60 minutes before bedtime AMITRIPTYLINE HCL 25 MG TAB 637561 AMITRIPTYLINE HCL Inactive AMOXICILLIN 500 MG TABS 2 tabs PO bid x 10 d 7 AMOXICILLIN 500 MG TABS 435073 AMOXICILLIN Inactive IMPLANON 68 MG IMPL IMPLANTED IN LEFT ARM IMPLANON 68 MG IMPL ETONOGESTREL Inactive HYDROCODONE-ACETAMINOPHEN 5-325 MG TABS 1 PO tid PRN pain 5 HYDROCODONE-ACETAMINOPHEN 5-325 MG TABS 495705 HYDROCODONE-ACETAMIN OPHEN Inactive BACTRIM DS 800-160 MG TAB 1 tab by mouth twice daily 2 BACTRIM DS 800-160 MG TAB 047621 TRIMETHOPRIM-SULFAMETHOXAZOLE Inac tive CEPHALEXIN 500 MG CAPS 1 PO bid x 7 days CEPHALEXIN 500 MG CAPS 392312 CEPHALEXIN Inactive HYDROCODONE-ACETAMINOPHEN 5-325 MG TABS 1 tab by mouth every 6 hours as needed HYDROCODONE-ACETAMINOPHEN 5-325 MG TABS 775225 HYDROCODONE-ACETAMINOPHEN Inactive PROMETHAZINE-CODEINE 6.25-10 MG/5ML SYRP 1 tsp every 6 hrs prn c ough PROMETHAZINE-CODEINE 6.25-10 MG/5ML SYRP 698271 PROMETH AZINE-CODEINE Inactive IBUPROFEN 800 MG TAB 1 pill three times daily as needed for pain IBUPROFEN 800 MG TAB IBUPROFEN Inactive KEFLEX 500 MG CAP 1 tab po tid KEFLEX 500 MG CAP 581531 CEPHALEXIN Inactive HYDROCODONE-ACETAMINOPHEN 7.5-325 MG TABS 1 four times a day as needed for pain HYDROCODONE-ACETAMINOPHEN 7.5-325 MG TABS 260781 HYDROCODONE-ACETAMINOPHEN Inactive BACTRIM DS 800-160 MG TABS by mouth twice a day 11/05 BACTRIM DS 800-160 MG TABS 508327 SULFAMETHOXAZOLE-TRIMETHOPRIM Inactive IBUPROFEN 800 MG TABS 1 tid prn IBUPROFEN 800 MG TABS 168290 IBUPROFEN Inactive ENDOCET 10-325 MG TABS 1 q 6 hr prn ENDOC ET 10-325 MG TABS 9538548 OXYCODONE-ACETAMINOPHEN Inactive HYDROCODONE-ACETAMINOPHEN 7.5-325 MG TABS 1 by mouth e very 6 hours as needed for pain HYDROCODONE-ACETAMINOPHEN 7.5-325 MG TABS 888784 HYDROCODONE-ACETAMINOPHEN Inactive PERCOCET 7.5-325 MG TABS 1 PO q 8 hrs PRN pain PERCOCET 7.5-325 MG TABS 5778716 OXYCODONE-ACETAMINOPHEN Inactive LIDODERM 5 % PTCH One patch to painful area AL N. On for 12 hrs, off for 12 hrs. LIDODERM 5 % PTCH 9090162 LIDOCAINE Inactiv e PERCOCET 7.5-325 MG TABS 1 PO tid PRN pain PERCOCET 7.5- 325 MG TABS 0119380 OXYCODONE-ACETAMINOPHEN Inactive MOBIC 15 MG TABS 1 tab daily MOBIC 15 MG TABS 15 2695 MELOXICAM Inactive CYCLOBENZAPRINE HCL 10 MG TABS 1/2 - 1 tab PO tid PRN back p ain, muscle spasm CYCLOBENZAPRINE HCL 10 MG TABS 414237 CYCLOBENZA JOSEPH HCL Inactive LORATADINE 10 MG TABS 1 tablet by mouth daily LORATADINE 10 MG TABS 264757 LORATADINE Inactive HYDROCODONE-ACETAMINOPHEN 10-325 MG TABS 1 by mouth ev chaka 8 hours as needed for pain HYDROCODONE-ACETAMINOPHEN 10-325 MG TABS 535217 HYDROCODONE-ACETAMINOPHEN Inactive LC-5 LIDOCAINE 5 % CREA apply 1 time daily to affected area 2013 LC-5 LIDOCAINE 5 % CREA 2008053 LIDOCAINE (ANORECTAL) In active PERCOCET 5-325 MG TAB 1 every 6 hours as needed PERCOCET 5-325 MG TAB 1923203 OXYCODONE-ACETAMINOPHEN Inactive KEFLEX 500 MG CAP 1 po qid KEFLEX 500 MG CAP 30 9114 CEPHALEXIN Inactive PROAIR HFA 108 (90 BASE) MCG/ACT AERS 2 puff q 4-6 hrs PRN 01/24 PROAIR HFA 108 (90 BASE) MCG/ACT AERS ALBUTEROL SULFATE Inactive PERCOCET 10-325 MG ORAL TABS 1 every 4 hours as needed PERCOCET 10-325 MG ORAL TABS 8495794 OXYCODONE-ACETAMINOPHEN Inactiv e EMLA 2.5-2.5 % EXT CREA apply to skin lesion q 6 hours, prn 2014 EMLA 2.5-2.5 % EXT CREA 910879 LIDOCAINE-PRILOCAINE Siri ctive PERCOCET 10-325 MG TABS 1 tab by mouth every 6 hours , use sparingly for severe pain PERCOCET 10-325 MG TABS 5721973 OXYCODONE-ACETAMINOPHEN Inactive GLUCOPHAGE 500 MG ORAL TABS one by mouth 3 times a day GLUCOPHAGE 500 MG ORAL TABS 311277 METFORMIN HCL Inactive HYDROCODONE-ACETAMINOPHEN 5-325 MG TABS 1 po q6hr PRN pain 06/30 HYDROCODONE-ACETAMINOPHEN 5-325 MG TABS 512779 HYDROCOD ONE-ACETAMINOPHEN Inactive PERCOCET 5-325 MG TAB 1 tab po q 6 -8 hours, prn for severe pain PERCOCET 5-325 MG TAB 0975695 OXYCODONE-ACETAMINOPHEN In active PERCOCET 5-325 MG ORAL TABS 1 every 6 hours as needed PERCOCET 5-325 MG ORAL TABS [id number] OXYCODONE-ACETAMINOPHEN Inactive DICLOFENAC SODIUM 50 MG TBEC 1 tablet by mouth four times da tom PRN Pain DICLOFENAC SODIUM 50 MG TBEC [id number] DICLOFENAC S ODIUM Inactive AUGMENTIN 500-125 MG ORAL TABS 1 by mouth twice a day AUGMENTIN 500-125 MG ORAL TABS [id number] AMOXICILLIN-POT CLAVULANATE I nactive HYDROCODONE-ACETAMINOPHEN 5-325 MG TABS 1 po q6hr PRN Pain 03/09 HYDROCODONE-ACETAMINOPHEN 5-325 MG TABS [id number] HYDROCOD ONE-ACETAMINOPHEN Inactive CYCLOBENZAPRINE HCL 10 MG TABS 1 tablet by mouth three times daily as needed for muscle spasm/pain CYCLOBENZAPRINE HCL 10 MG TABS [id number] CYCLOBENZAPRINE HCL Inactive SPRINTEC 28 0.25-35 MG-MCG TABS 1 pill by mouth daily for bi rth control SPRINTEC 28 0.25-35 MG-MCG TABS [id number] NORGESTIMATE-ETH ESTRADIOL Inactive PERCOCET 5-325 MG TAB 1 tab po q 6 hours, prn severe pain PERCOCET 5-325 MG TAB [id number] OXYCODONE-ACETAMINOPHEN Inactive IBUPROFEN 600 MG ORAL TABS 1 by mouth twice a day 2014 IBUPROFEN 600 MG ORAL TABS [id number] IBUPROFEN Inactive CYMBALTA 30 MG CPEP 1 cap by mouth daily CYMBALTA 30 MG CPEP [id number] DULOXETINE HCL Inactive HYDROCODONE-ACETAMINOPHEN 5-325 MG TABS 1 po q6hr PRN Pain 04/09 HYDROCODONE-ACETAMINOPHEN 5-325 MG TABS [id number] HYDROCOD ONE-ACETAMINOPHEN Inactive TRAZODONE HCL 100 MG TAB 0.5 to 1 po qHS PRN Insomnia TRAZODONE HCL 100 MG TAB [id number] TRAZODONE HCL Inactive ALPRAZOLAM 0.5 MG TABS 1 po BID PRN Anxiety ALPRAZOLAM 0.5 MG TABS [id number] ALPRAZOLAM Inactive [id number] 50-325-40 MG ORAL CAPS 1-2 po TID AL N Headache [id number] 50-325-40 MG ORAL CAPS 2 [id number] [id number] Inactive HYDROCODONE-ACETAMINOPHEN 5-325 MG TABS 1 po TID PRN Pain 9 HYDROCODONE-ACETAMINOPHEN 5-325 MG TABS [id number] HYDROCODONE-ACETAMIN OPHEN Inactive PERCOCET 10-325 MG TABS 1 tablet every 8 hours as needed for antonia n PERCOCET 10-325 MG TABS [id number] OXYCODONE-ACETAMINOPHEN Inactive ONDANSETRON 4 MG TBDP 1 q4h PRN nausea ON DANSETRON 4 MG TBDP [id number] ONDANSETRON Inactive VIIBRYD 10 & 20 & 40 MG KIT 1 po qd as directed 07/24 VIIBRYD 10 & 20 & 40 MG KIT VILAZODONE HCL Inactive DICLOFENAC SODIUM 50 MG TBEC 1 tablet by mouth four times da tom PRN Pain DICLOFENAC SODIUM 50 MG TBEC 329920 DICLOFENAC S ODIUM Inactive PERCOCET 10-325 MG ORAL TABS one every 6 hours prn pain PERCOCET 10-325 MG ORAL TABS [id number] OXYCODONE-ACETAMINOPHEN Inactiv e PERCOCET 10-325 MG ORAL TABS take 1 tab by mouth q 4hours as needed for pain PERCOCET 10-325 MG ORAL TABS [id number] OXYCODONE-ACETAMINOPHEN Inactive FLONASE ALLERGY RELIEF 50 MCG/ACT NASAL SUSP One spray in each nostril twice a day. FLONASE ALLERGY RELIEF 50 MCG/ACT NASAL S [facility] 255533 FLUTICASONE PROPIONATE Inactive AUGMENTIN 875-125 MG TAB 1 tab by mouth twice daily with food 20 23/05/16 AUGMENTIN 875-125 MG TAB [id number] AMOXICILLIN-POT [place] Inactive HYDROCODONE-ACETAMINOPHEN 5-325 MG TABS 1 tab by mouth every 6 hours as needed for pain HYDROCODONE-ACETAMINOPHEN 5-325 MG TABS 8 24000 HYDROCODONE-ACETAMINOPHEN Inactive PERCOCET 10-325 MG TABS 1 tablet every 8 hours as needed for antonia n PERCOCET 10-325 MG TABS [id number] OXYCODONE-ACETAMINOPHEN Inactive LC-4 LIDOCAINE 4 % EXT CREA apply q 6 hours, prn 08/03 LC-4 LIDOCAINE 4 % EXT CREA 1351911 LIDOCAINE Inactive PROMETHAZINE HCL 25 MG TABS 1 four times a day as needed for nausea/vomiting PROMETHAZINE HCL 25 MG TABS 094912 PROMETHAZINE HCL Inactive AMOXICILLIN 875 MG TABS 1 tab by mouth twice daily 201 07/18/07 AMOXICILLIN 875 MG TABS 866515 AMOXICILLIN Inactive KEFLEX 500 MG CAP 1 po tid x 10 days KEFLEX 500 MG CAP 313307 CEPHALEXIN Inactive AMOXICILLIN 875 MG TABS 1 tab by mouth twice daily 201 07/19/27 AMOXICILLIN 875 MG TABS 872236 AMOXICILLIN Inactive AMOXICILLIN 875 MG TABS 1 tab by mouth twice daily 201 08/09/13 AMOXICILLIN 875 MG TABS 878069 AMOXICILLIN Inactive CIPRO 500 MG TAB 1 tablet by mouth twice daily CIPRO 500 MG TAB 031427 CIPROFLOXACIN HCL Inactive BACTRIM DS 800-160 MG TAB 1 tab by mouth twice daily 2 BACTRIM DS 800-160 MG TAB 653541 TRIMETHOPRIM-SULFAMETHOXAZOLE Inac tive LEVAQUIN 500 MG TABS 1 PO q day x 7 days LEVAQUIN 500 MG TABS 187598 LEVOFLOXACIN Inactive CLINDAMYCIN HCL 300 MG CAPS 1 po QID x 7 days CLINDAMYCIN HCL 300 MG CAPS 559039 CLINDAMYCIN HCL Inactive AUGMENTIN 875-125 MG TAB 1 tab by mouth twice daily with food 20 22/05/07 AUGMENTIN 875-125 MG TAB 233446 AMOXICILLIN-POT [place] Inactive DIFLUCAN 150 MG TAB 1 qODay x 2 doses DIFLUCAN 150 MG TAB 254333 FLUCONAZOLE Inactive PREDNISONE 20 MG TAB 2 tabs daily for 3 days, 1 t ab daily for 3 days, 1/2 tab daily for 2 days PREDNISONE 20 MG TAB 013507 PREDNISON E Inactive AUGMENTIN 875-125 MG TAB 1 tab by mouth twice daily with food 20 21/10/13 AUGMENTIN 875-125 MG TAB 917735 AMOXICILLIN-POT [place] Inactive HYDROCODONE-ACETAMINOPHEN 5-325 MG TABS 1 tab by mouth every 6 hours as needed PRN Pain HYDROCODONE-ACETAMINOPHEN 5-325 MG TABS 8 54977 HYDROCODONE-ACETAMINOPHEN Inactive PROMETHAZINE HCL 25 MG TABS 1 four times a day as needed for nausea/vomiting PROMETHAZINE HCL 25 MG TABS 563161 PROMETHAZINE HCL Inactive AMOXICILLIN 500 MG CAPS 2 po BID x 10 days AMOXICILLIN 500 MG CAPS 108429 AMOXICILLIN Inactive Advance Directives Directive Description Start Date PERMISSION TO SHARE Immunizations Vaccine Administration Date Value Standard Alf cription Seasonal influenza vaccine, injectable, containing preservative, for > 3 years old (Afluria, FluLaval, Fluzone, Fluvirin, Fluarix, Agriflu(>= 18 yo)) Fluzone (>3 yrs.) [[id number]] Influenza, seasonal, inject able Seasonal influenza vaccine, injectable, preservative free, for > 3 years old (Afluria, FluLaval, Fluzone, Fluvirin, Fluarix, Agriflu(>= 18 yo)) Fluzone preservative free (>3 yrs.) [[id number]] Influenza, seasonal, injectable, preservative free Seasonal influenza vaccine, injectable, containing preservative, for > 3 years old (Afluria, FluLaval, Fluzone, Fluvirin, Fluarix, Agriflu(>= 18 yo)) Fluzone (>3 yrs.) [[id number]] Influenza, seasonal, inject able Seasonal influenza vaccine, injectable, containing preservative, for > 3 years old (Afluria, FluLaval, Fluzone, Fluvirin, Fluarix, Agriflu(>= 18 yo)) Fluzone (>3 yrs.) [[id number]] Influenza, seasonal, inject able dT (Diphtheria and [...] pressure, diastolic - 8462-4 86 mm[Hg] BP ribiero blood pressure, systolic - 8480-6 134 mm[Hg] [...] Panel - Chemistry sodium, serum 142 mmol/L 962-930 8469/05/12 potassium, serum 4.8 mmol/L 3.5-5.2 chloride, serum [...] ... - Chemistry sodium, serum 137 mmol/L 153-271 2086/02/24 carbon dioxide, venous blood 26.3 mmol/L 21.0-32 [...] Panel - Chemistry cholesterol, serum 181 mg/dL 019-834 6122/09/01 triglyceride, serum, fasting 341 mg/dL 30-200 HDL cholesterol, serum 22 mg/dL 32-96 LDL cholesterol, serum 91 mg/dL 0-130 cholesterol, serum 165 mg/dL 855-904 6896/05/12 triglyceride, serum, fasting 524 mg/dL 30-200 HDL [...] negative Encounters Code Encounter Date Provider Facility CPT-62260 Level 4 Est. Patient 16:38:26 [employer] Abdirahman Rios MD [facility] CPT-39151 Level 3 Est. Patient 05:31:41 [employer] Kalpesh goins MD [facility] CPT-67925 Level 3 Est. Patient 11:22:02 [employer] Hira muniz [facility] CPT-03689 Level 3 Est. Patient 21:00:18 [employer] Rajni danielson [facility] CPT-72529 Level 3 Est. Patient 14:15:00 [employer] Kalpesh goins MD [facility] CPT-29872 Level 2 Est. Patient 19:57:52 [employer] Rajni danielson [facility] CPT-90672 Level 3 Est. Patient 16:58:40 [employer] Bj funes MD [facility] CPT-34554 Level 3 Est. Patient 08:51:33 CDT Kalpesh goins MD [facility] CPT-26732 Level 4 Est. Patient 14:14:53 CDT Abdirahman Rios MD [facility] CPT-72051 Level 3 Est. Patient 15:47:40 CDT Kalpesh goins MD [facility]-91728 Level 3 Est. Patient 10:57:26 CDT Abdirahman Rios MD [facility]-58067 Level 3 Est. Patient 14:29:53 CDT Abhinav Galvan MD [facility] CPT-56174 Level 2 Est. Patient 16:33:01 CDT Kalpesh goins MD [facility]-36602 Level 4 Est. Patient 16:44:56 CDT Abdirahman Rios MD [facility]-33413 Level 2 Est. Patient 07:49:32 CDT Kalpesh goins MD [facility] CPT-26224 Level 3 New Patient 15:47:11 [employer] Bj huber MD [facility]-14825 Level 4 Est. Patient 14:37:38 [employer] Abdirahman Rios MD [facility] CPT-63133 Level 2 Est. Patient 13:32:17 [employer] Kalpesh goins MD [facility]-18559 Level 3 Est. Patient 17:32:57 [employer] Edilberto tiwari [facility] CPT-78953 Level 3 Est. Patient 17:22:33 [employer] Edilberto tiwari [facility] CPT-10186 Level 2 Est. Patient 16:57:09 [employer] Kalpesh goins MD [facility]-98707 Level 3 Est. Patient 14:03:08 [employer] Abdirahman Rios MD [facility]-34255 Level 3 Est. Patient 18:12:34 CDT Shola Wright [facility] CPT-67748 Level 3 Est. Patient 19:34:46 CDT Shola W Cloven [facility] CPT-92567 Level 3 Est. Patient 14:19:37 CDT Abdirahman Rios MD [facility] CPT-46388 Level 3 Est. Patient 14:11:58 CDT Kalpesh goins MD [facility] CPT-16909 Level 3 Est. Patient 16:50:00 CDT Michelle Deleon atilio MERCADO [facility] CPT-26290 Level 3 Est. Patient 17:11:32 [employer] Brandie bates MD PhD [facility] CPT-77296 Level 3 Est. Patient 16:31:47 [employer] Shola Wright [facility] CPT-03861 Level 3 Est. Patient 17:51:10 [employer] Abhinav Galvan MD [facility] CPT-73363 Level 4 Est. Patient 12:54:56 [employer] Kalpesh goins MD [facility] CPT-88062 Level 4 Est. Patient 12:53:56 [employer] Kalpesh goins MD [facility] CPT-52977 Level 3 Est. Patient 17:56:58 CDT Shola Wright [facility] CPT-08839 Level 3 Est. Patient 14:26:20 CDT Janak butcher [facility] CPT-66532 Level 3 Est. Patient 09:38:41 CDT Shola Wright [facility] CPT-24588 Level 3 Est. Patient 14:45:26 CDT Edilberto tiwari [facility] CPT-09480 Level 3 Est. Patient 10:51:33 CDT [facility] Est. Patient 11:57:55 [employer] Shola Wright [facility] CPT-01515 Level 3 Est. Patient 09:53:33 [employer] Edilberto tiwari DO [facility] CPT-64174 Level 3 Est. Patient 14:42:54 [employer] Abhinav Galvan MD [facility] CPT-86776 Level 3 Est. Patient 15:10:02 CDT Janak Dominguez guadalupe [facility] CPT-35454 Level 3 Est. Patient 15:20:20 CDT Theo dennis MD [facility] CPT-75315 Level 2 Est. Patient 14:08:57 CDT Kalpesh goins MD [facility] CPT-04583 Level 3 Est. Patient 13:56:19 CDT Abdirahman Rios MD [facility] CPT-86134 Level 3 Est. Patient 13:59:37 CDT Abdirahman Rios MD [facility]-25720 Level 2 Est. Patient 14:44:59 CDT Kalpesh goins MD [facility] CPT-66794 Level 3 Est. Patient 06:06:23 CDT Edilberto tiwari DO [facility] CPT-35116 Level 3 Est. Patient 15:23:54 CDT Abdirahman Rios MD [facility] CPT-69928 Level 3 Est. Patient 15:43:49 CDT Abdirahman Rios MD [facility] CPT-34114 Level 3 Est. Patient 12:46:47 [employer] Abdirahman Rios MD [facility] CPT-87598 Level 3 Est. Patient 08:13:35 [employer] Abdirahman Rios MD [facility] CPT-83079 Level 2 Est. Patient 09:36:42 [employer] Abdirahman Rios MD [facility] CPT-09847 Level 3 Est. Patient 10:56:43 CDT Abdirahman Rios MD [facility] CPT-96281 Level 3 Est. Patient 18:24:52 CDT Abdirahman Rios MD [facility] CPT-09561 Level 3 Est. Patient 13:27:22 CDT Abdirahman Rios MD [facility] Procedures Code Procedure Name Date Entry Date Standard Desc ription CPT-16768 Postop F/U Visit 16:21:51 [employer] CPT-33011 Postop F/U Visit 17:09:41 [employer] CPT-52429 Postop F/U Visit 14:08:43 [employer] CPT-71120 Postop F/U Visit 15:18:16 [employer] CPT-62397 Postop F/U Visit 15:03:49 [employer] CPT-95828 Postop F/U Visit 14:45:23 [employer] CPT-11910 Postop F/U Visit 14:11:03 [employer] CPT-20635 Postop F/U Visit 18:21:21 [employer] CPT-64801 Postop F/U Visit 15:57:12 [employer] CPT-48015 Bladder Instillation 16:58:41 [employer] 6 CPT-92329 Fluzone Quadrivalent Intramuscular Suspe nsion 0.5 ML 15:20:56 [employer] CPT-75394 Immunization Single Admin 15:20:56 [employer]ER 2014 CPT-37581 Excis pilonidal cyst simple 08:51:34 CDT 20 22/04/20 CPT-62855 Venipuncture Draw Fee 14:27:29 CDT CPT-80012 Postop F/U Visit 15:27:43 CDT CPT-71377 Postop F/U Visit 14:40:59 CDT CPT-57282 Postop F/U Visit 15:02:46 CDT CPT-47182 Postop F/U Visit 11:29:00 [employer] CPT-J0696 Rocephin 1000 mg (Ceftriaxone) 17:22:33 [employer] CPT-35100 Postop F/U Visit 18:41:07 [employer] CPT-67276 Postop F/U Visit 08:19:08 [employer] CPT-02104 Immunization Single Admin 16:41:53 CDT 2013 CPT-23974 Fluzone Quadrivalent Intramuscular Suspe nsion 0.5 ML 16:41:53 CDT CPT-OV Office Visit 16:39:18 CDT CPT-OV Office Visit 16:16:36 CDT CPT-OV Office Visit 15:34:48 CDT CPT-71863 Postop F/U Visit 14:50:12 CDT CPT-19540 Postop F/U Visit 14:41:10 CDT CPT-54142 Venipuncture Draw Fee 11:38:04 [employer] CPT-61207 Postop F/U Visit 19:02:59 [employer] CPT-35471 Postop F/U Visit 12:04:54 [employer] CPT-13268 Administration single or combination vac cine inc oral 15:56:43 CDT CPT-45086 Influenza split virus > age 3 15:56:43 CDT CPT-29754 Hand comp min 3V 14:25:19 CDT CPT-14830 Postop F/U Visit 21:40:51 CDT CPT-23246 Postop F/U Visit 10:58:43 CDT CPT-49910 Administration single or combination vac cine inc oral 12:33:54 [employer] CPT-38197 Influenza Preservative Free split virus >age 3 12:33:54 [employer] CPT-94122 Administration single or combination vac cine inc oral 09:30:51 CDT CPT-40331 Influenza split virus > age 3 09:30:51 CDT CPT-34790 Postop F/U Visit 15:14:53 CDT CPT-34191 Postop F/U Visit 13:50:14 CDT CPT-56627 Postop F/U Visit 13:34:52 CDT CPT-OV Office Visit 16:55:03 CDT CPT-84638 [place] of cervix w bx ECC 13:32:50 CDT 10/19 CPT-J1885 Toradol 60 mg (Ketorolac) 15:31:59 CDT 2011 CPT-J1885 Toradol 60 mg (Ketorolac) 15:23:54 CDT 2011 CPT-29427 Visit 11:34:37 [employer] CPT-91782 Visit 10:52:39 [employer] CPT-63359 Visit 10:12:02 [employer] CPT-99379 Visit 11:22:43 [employer] CPT-29857 Visit 11:24:12 [employer] CPT-95495 Visit 10:47:05 [employer] CPT-OV Office Visit 10:26:16 [employer] CPT-OV Office Visit 15:34:31 [employer] CPT-61464 Visit 10:42:08 [employer] CPT-95461 Visit 10:52:45 [employer] CPT-000 Give Appropriate Flu Vaccine 16:56:41 CDT 2 CPT-16555 Administration single or combination vac cine inc oral 10:33:21 CDT CPT-11619 Influenza split virus > age 3 10:33:21 CDT CPT-58695 Visit 13:23:09 CDT CPT-06800 Visit 18:24:52 CDT CPT-21759 Sono OB comp > 14 weeks 12:07:49 CDT 04/07
--- OUTSIDE RECORDS SUMMARY | 2020-01-18 16:38 | XMS REPORT | Clinical Summary ---
Author Author Avery, Jeri Rashid Organization [email or web address] Address Unknown Phone Unavailable Allergies, Adverse Reactions, Alerts Allergy Name Reaction Description Start Date Severity Status Pr ovider SULFA Critical Active Jillina Frazel l JUNIOR AUTOMATION ENGINEER TORADOL Rash Severe Active Rajni Yodipesh AP RN BACTRIM Critical Active Kalpesh Dong [...] at surgical incision 782.0 Active Hira Moser JUNIOR AUTOMATION ENGINEER Disturbance of skin sensation , INCIDENTAL [...] EXT CREA apply tid, prn LIDOCAIN E-PRILOCAINE 72464847505 Active Jillina Frajalenl JUNIOR AUTOMATION ENGINEER Active PERCOCET 5-325 MG TAB 1 tab po q 6 hours, prn OXYCODONE-ACETAMINOPHEN 74321962569 Active Jillina Frazell JUNIOR AUTOMATION ENGINEER Active ROPUYWUUKM-SEDE-[id number] 50-325-40 MG ORAL TABS 1 po TID PRN Headaches [id number] 11148739869 No Longer Active Jillina Karmenl JUNIOR AUTOMATION ENGINEER Active GLYDO 2 % EXT GEL apply to painful areas as needed 201 12/10/13 LIDOCAINE HCL 98986155971 No Longer Active Jillina Karmenl JUNIOR AUTOMATION ENGINEER Ac tive PERCOCET 10-325 MG ORAL TABS 1 every 4 hous as needed OXYCODONE-ACETAMINOPHEN 16137999902 No Longer Active Jillina Karmenl JUNIOR AUTOMATION ENGINEER Active LC-4 LIDOCAINE 4 % EXT CREA apply to painful area every 12 h ours or as needed LIDOCAINE 33705641683 No Longer Active Jillina Fra janee JUNIOR AUTOMATION ENGINEER Active CHANTIX STARTING MONTH MARGARITA 0.5 MG X 11 & 1 MG X 42 TAB S 0.5mg daily for 3 days, then 0.5mg BID for 4 days, then 1mg BID VARENICL INE TARTRATE 07908725751 Active Abdirahman Rios MD Active AMOXICILLIN 500 MG CAPS 2 po BID x 10 days AMOX ICILLIN 12040295617 No Longer Active Abdirahman Rios MD Active PROMETHAZINE HCL 25 MG TABS 1 four times a day as needed for nausea/vomiting PROMETHAZINE HCL 24540447361 No Longer Active Abdirahman Rios MD Active LC-4 LIDOCAINE 4 % EXT CREA apply q 6 hours, prn 08/03 LIDOCAINE 97621741134 No Longer Active Kalpesh Dong MD Active PERCOCET 10-325 MG TABS 1 tablet every 8 hours as needed for [place] n OXYCODONE-ACETAMINOPHEN 69997334560 No Longer Active Kalpesh Dong MD Active HYDROCODONE-ACETAMINOPHEN 5-325 MG TABS 1 tab by mouth every 6 hours as needed for pain HYDROCODONE-ACETAMINOPHEN 25074935652 No Longer Active Kalpesh Dong MD Active AUGMENTIN 875-125 MG TAB 1 tab by mouth twice daily with food 20 23/05/16 AMOXICILLIN-POT CLAVULANATE 99911464849 No Longer Active Lizeth hi Yokum JUNIOR AUTOMATION ENGINEER 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 FLUTICASONE PROPIONATE 83181079376 No Longer Ac tive Rajni Yokum JUNIOR AUTOMATION ENGINEER Active PERCOCET 10-325 MG ORAL TABS take 1 tab by mouth q 4hours as needed for pain OXYCODONE-ACETAMINOPHEN 22810747274 No Longer Active Rajni Yokum JUNIOR AUTOMATION ENGINEER Active PERCOCET 10-325 MG ORAL TABS one every 6 hours prn pain OXYCODONE-ACETAMINOPHEN 64956179100 No Longer Active Rajni Yokum JUNIOR AUTOMATION ENGINEER Active IBUPROFEN 800 MG TABS 1 tab po tid, with food I BUPROFEN 92600394171 Active Jillina Frazell JUNIOR AUTOMATION ENGINEER Active DICLOFENAC SODIUM 50 MG TBEC 1 tablet by mouth four times da tom PRN Pain DICLOFENAC SODIUM 96918584863 No Longer Active Rajni Yokum JUNIOR AUTOMATION ENGINEER Active VIIBRYD 10 & 20 & 40 MG KIT 1 po qd as directed 07/24 VILAZODONE HCL 36327984259 No Longer Active Rajni Yokum JUNIOR AUTOMATION ENGINEER Active ONDANSETRON 4 MG TBDP 1 q4h PRN nausea ONDANSET KELBY 13499908042 No Longer Active Rajni Yoyanaum JUNIOR AUTOMATION ENGINEER Active PERCOCET 10-325 MG TABS 1 tablet every 8 hours as needed for [place] n OXYCODONE-ACETAMINOPHEN 44151347518 No Longer Active Rajni cox JUNIOR AUTOMATION ENGINEER Active HYDROCODONE-ACETAMINOPHEN 5-325 MG TABS 1 po TID PRN Pain 9 HYDROCODONE-ACETAMINOPHEN 90798987959 No Longer Active Abdirahman Rios MD Active [id number]-[id number] 50-325-40 MG ORAL CAPS 1-2 po TID IL N Headache [id number]-NAVCEXPA 21458690634 No Longer Act krishna Kalpesh Dong MD Active ALPRAZOLAM 0.5 MG TABS 1 po BID PRN Anxiety ALP RAZOLAM 94625939784 No Longer Active Kalpesh Dong MD Active TRAZODONE HCL 100 MG TAB 0.5 to 1 po qHS PRN Insomnia TRAZODONE HCL 67764001975 No Longer Active Kalpesh Dong MD Activ e HYDROCODONE-ACETAMINOPHEN 5-325 MG TABS 1 po q6hr PRN Pain 04/09 HYDROCODONE-ACETAMINOPHEN 14485766484 No Longer Active Kalpesh Dong MD Active CYMBALTA 30 MG CPEP 1 cap by mouth daily DULOXE CLEO HCL 60221372912 No Longer Active Abdirahman Rios MD Active IBUPROFEN 600 MG ORAL TABS 1 by mouth twice a day 2014 IBUPROFEN 91373133547 No Longer Active Abdirahman Rios MD Activ e PERCOCET 5-325 MG TAB 1 tab po q 6 hours, prn severe pain 1 OXYCODONE-ACETAMINOPHEN 94346725190 No Longer Active Abdirahman Rios MD Active SPRINTEC 28 0.25-35 MG-MCG TABS 1 pill by mouth daily for bi rth control NORGESTIMATE-ETH ESTRADIOL 68402478865 No Longer Acti ve Matthewllina Joyzell JUNIOR AUTOMATION ENGINEER Active CYCLOBENZAPRINE HCL 10 MG TABS 1 tablet by mouth three times daily as needed for muscle spasm/pain CYCLOBENZAPRINE HCL 58480566685 No Longer Active Jillina Frazell JUNIOR AUTOMATION ENGINEER Active HYDROCODONE-ACETAMINOPHEN 5-325 MG TABS 1 po q6hr PRN Pain 03/09 HYDROCODONE-ACETAMINOPHEN 92435849120 No Longer Active Matthewllina Joyzel l JUNIOR AUTOMATION ENGINEER Active AUGMENTIN 500-125 MG ORAL TABS 1 by mouth twice a day AMOXICILLIN-POT CLAVULANATE 89877574598 No Longer Active Jillina Frazell JUNIOR AUTOMATION ENGINEER Active DICLOFENAC SODIUM 50 MG TBEC 1 tablet by mouth four times da tom PRN Pain DICLOFENAC SODIUM 57010931498 No Longer Active Jillin a Karmenl JUNIOR AUTOMATION ENGINEER Active PROMETHAZINE HCL 25 MG TABS 1 four times a day as needed for nausea/vomiting PROMETHAZINE HCL 80133991386 No Longer Active Abdirahman Rios MD Active HYDROCODONE-ACETAMINOPHEN 5-325 MG TABS 1 tab by mouth every 6 hours as needed PRN Pain HYDROCODONE-ACETAMINOPHEN 50058773101 No Longer Active Abdirahman Rios MD Active GEMFIBROZIL 600 MG TABS 1 po BID GEMFIBROZIL [id number] 005 Active Abdirahman Rios MD Active PERCOCET 5-325 MG ORAL TABS 1 every 6 hours as needed OXYCODONE-ACETAMINOPHEN 73723032677 No Longer Active Abdirahman Rios MD Active PERCOCET 5-325 MG TAB 1 tab po q 6 -8 hours, prn for severe pain OXYCODONE-ACETAMINOPHEN 02818092214 No Longer Active Abdirahman Rios MD Active HYDROCODONE-ACETAMINOPHEN 5-325 MG TABS 1 po q6hr PRN pain 06/30 HYDROCODONE-ACETAMINOPHEN 00579759660 No Longer Active Hira roman JUNIOR AUTOMATION ENGINEER Active GLUCOPHAGE 500 MG ORAL TABS one by mouth 3 times a day METFORMIN HCL 92753729457 No Longer Active Hira Moser JUNIOR AUTOMATION ENGINEER Ac tive PERCOCET 10-325 MG TABS 1 tab by mouth every 6 hours , use sparingly for severe pain OXYCODONE-ACETAMINOPHEN 88465193832 No Longer A ctive Abdirahman Rios MD Active EMLA 2.5-2.5 % EXT CREA apply to skin lesion q 6 hours, prn 2014 LIDOCAINE-PRILOCAINE 35377485425 No Longer Active Abdirahman Rios MD Active PERCOCET 10-325 MG ORAL TABS 1 every 4 hours as needed OXYCODONE-ACETAMINOPHEN 73760949505 No Longer Active Abdirahman Rios MD Active AUGMENTIN 875-125 MG TAB 1 tab by mouth twice daily with food 20 21/10/13 AMOXICILLIN-POT CLAVULANATE 27146920939 No Longer Active Ursula Moser APRN Active PROAIR HFA 108 (90 BASE) MCG/ACT AERS 2 puff q 4-6 hrs PRN 01/24 ALBUTEROL SULFATE 29040451108 No Longer Active Kalpesh Dong MD Active PREDNISONE 20 MG TAB 2 tabs daily for 3 days, 1 t ab daily for 3 days, 1/2 tab daily for 2 days PREDNISONE 10037922316 No Longer Active Abdirahman Rios MD Active KEFLEX 500 MG CAP 1 po qid CEPHALEXIN 577636758 20 No Longer Active Kalpesh Dong MD Active PERCOCET 5-325 MG TAB 1 every 6 hours as needed OXYCODONE-ACETAMINOPHEN 88449554430 No Longer Active Shola MCGILL Active LC-5 LIDOCAINE 5 % CREA apply 1 time daily to affected area 2013 LIDOCAINE (ANORECTAL) 46822058035 No Longer Active Jillina F razell JUNIOR AUTOMATION ENGINEER Active HYDROCODONE-ACETAMINOPHEN 10-325 MG TABS 1 by mouth ev chaka 8 hours as needed for pain HYDROCODONE-ACETAMINOPHEN 75397504143 No Longer Active Jillina Frazell JUNIOR AUTOMATION ENGINEER Active LORATADINE 10 MG TABS 1 tablet by mouth daily L ORATADINE 75581110852 No Longer Active Jillina Frazell JUNIOR AUTOMATION ENGINEER Active DIFLUCAN 150 MG TAB 1 qODay x 2 doses FLUCONAZO LE 05062155538 No Longer Active Jillina Frazell JUNIOR AUTOMATION ENGINEER Active CYCLOBENZAPRINE HCL 10 MG TABS 1/2 - 1 tab PO tid PRN back p ain, muscle spasm CYCLOBENZAPRINE HCL 53974333874 No Longer Active Karen herson Frazell JUNIOR AUTOMATION ENGINEER Active AUGMENTIN 875-125 MG TAB 1 tab by mouth twice daily with food 20 22/05/07 AMOXICILLIN-POT CLAVULANATE 48528878840 No Longer Active Loida Rios MD Active MOBIC 15 MG TABS 1 tab daily MELOXICAM 382793549 14 No Longer Active Abdirahman Rios MD Active PERCOCET 7.5-325 MG TABS 1 PO tid PRN pain OXYCODONE-ACETAMINOPHEN 62723781255 No Longer Active Abdirahman Rios MD Active LIDODERM 5 % PTCH One patch to painful area [place] N. On for 12 hrs, off for 12 hrs. LIDOCAINE 40533860961 No Longer Active Abdirahman Rios MD Active PERCOCET 7.5-325 MG TABS 1 PO q 8 hrs PRN pain OXYCODONE-ACETAMINOPHEN 78066210332 No Longer Active Shola MCGILL Active HYDROCODONE-ACETAMINOPHEN 7.5-325 MG TABS 1 by mouth e very 6 hours as needed for pain HYDROCODONE-ACETAMINOPHEN 22289689712 No Longer Active Good Julian MD Active CLINDAMYCIN HCL 300 MG CAPS 1 po QID x 7 days CLINDAMYCIN HCL 47735313569 No Longer Active Abdirahman Rios MD Activ e BACTRIM DS 800-160 MG TABS 1 po BID x 7 days 5 SULFAMETHOXAZOLE-TRIMETHOPRIM 15969844126 No Longer Active Abdirahman Rios MD Active ENDOCET 10-325 MG TABS 1 q 6 hr prn OXYCODONE-ACETAMINOPHEN 77634913026 No Longer Active Abdirahman Rios MD Active IBUPROFEN 800 MG TABS 1 tid prn IBUPROFEN 426628 90820 No Longer Active Abdirahman Rios MD Active BACTRIM DS 800-160 MG TABS by mouth twice a day 11/05 SULFAMETHOXAZOLE-TRIMETHOPRIM 83678737348 No Longer Active Good Julian MD Active HYDROCODONE-ACETAMINOPHEN 7.5-325 MG TABS 1 four times a day as needed for pain HYDROCODONE-ACETAMINOPHEN 90869326722 No Longer Activ e Good Julian MD Active KEFLEX 500 MG CAP 1 tab po tid CEPHALEXIN 742826 73461 No Longer Active iHra Moser APRN Active IBUPROFEN 800 MG TAB 1 pill three times daily as needed for pain IBUPROFEN 72670516215 No Longer Active Kalpesh Dong MD Active PROMETHAZINE-CODEINE 6.25-10 MG/5ML SYRP 1 tsp every 6 hrs prn c ough PROMETHAZINE-CODEINE 44372301670 No Longer Active Kalpesh Carr Active HYDROCODONE-ACETAMINOPHEN 5-325 MG TABS 1 tab by mouth every 6 hours as needed HYDROCODONE-ACETAMINOPHEN 98989678880 No Longer Activ e Shola MCGILL Active CEPHALEXIN 500 MG CAPS 1 PO bid x 7 days CEPHAL EXIN 34284931143 No Longer Active Shola MCGILL Active BACTRIM DS 800-160 MG TAB 1 tab by mouth twice daily 2 TRIMETHOPRIM-SULFAMETHOXAZOLE 69343021140 No Longer Active Kalpesh Dong MD Active HYDROCODONE-ACETAMINOPHEN 5-325 MG TABS 1 PO tid PRN pain 5 HYDROCODONE-ACETAMINOPHEN 76823725676 No Longer Active Abhinav Galvan MD Active IMPLANON 68 MG IMPL IMPLANTED IN LEFT ARM ETONO GESTREL 65591701920 No Longer Active Hira Moser APRN Active AMOXICILLIN 500 MG TABS 2 tabs PO bid x 10 d AM OXICILLIN 82422654678 No Longer Active Kalpesh Dong MD Active LEVAQUIN 500 MG TABS 1 PO q day x 7 days LEVOFL OXACIN 43610933927 No Longer Active Shola MCGILL Active AMITRIPTYLINE HCL 25 MG TAB 1 tab by mouth daily 60 minutes before bedtime AMITRIPTYLINE HCL 84815011642 No Longer Active Shola MCGILL Active LORTAB 5 5-500 MG TABS 1/2 to 1 tablet by mouth go ry 6 hours as needed for pain HYDROCODONE-ACETAMINOPHEN 01351262043 No Longer Active Shola MCGILL Active CEPHALEXIN 500 MG TABS Take one by mouth four times daily, morning, noon, early evening and bedtime. CEPHALEXIN 29742264451 No Long er Active Hira Moser APRN Active TYLENOL/CODEINE #3 300-30 MG TAB 1-2 po q6hr PRN Pain ACETAMINOPHEN-CODEINE 35356373683 No Longer Active Edilberto Marino DO Active PRISTIQ 50 MG OD21P-MDA 1 po qd DESVENLAFAXI NE SUCCINATE 36372803668 No Longer Active Edilberto Marino DO Active PENICILLIN V POTASSIUM 500 MG TAB 1 four times a day 2 PENICILLIN V POTASSIUM 72511357810 No Longer Active Edilberto Marino DO Active DOXYCYCLINE HYCLATE 100 MG CAPS Take one (1) tablet by mouth twice a day DOXYCYCLINE HYCLATE 04519678561 No Longer Active Ronnie Galvan MD Active HYDROCODONE-ACETAMINOPHEN 5-325 MG TABS 1 po q 6hr PRN Pain 2011 HYDROCODONE-ACETAMINOPHEN 75124123562 No Longer Active Patri joan Perez RN Active BACTRIM DS 800-160 MG TAB 1 tab by mouth twice daily 2 TRIMETHOPRIM-SULFAMETHOXAZOLE 37086838454 No Longer Active Kalpesh Dong MD Active LORTAB 5 5-500 MG TABS 1/2 to 1 tablet by mouth go ry 4 hours as needed for pain HYDROCODONE-ACETAMINOPHEN 06759263467 No Longer Active Kalpesh Dong MD Active GENERESS FE 0.8-25 MG-MCG CHEW Take one by mouth daily NORETHIN-ETH ESTRADIOL-FE 13379787408 No Longer Active Kalpesh Dong MD Active HYDROCODONE-ACETAMINOPHEN 7.5-500 MG TABS 1-2 every 4 hours as needed HYDROCODONE-ACETAMINOPHEN 56221148153 No Longer Activ e Kalpesh Dong MD Active FERROUS SULFATE 325 (65 FE) MG TABS 1 tablet by mouth twice yung y FERROUS SULFATE 94474120616 No Longer Active Kalpesh Dong MD Active IBUPROFEN 600 MG TAB 1 po q6-8hr PRN IBUPROFEN 68968191001 No Longer Active Kalpesh Dong MD Active SPIRONOLACTONE 25 MG TAB 1 tablet by mouth daily 01/22 SPIRONOLACTONE 52634268183 No Longer Active Kalpesh Dong MD Acti ve HYDROCODONE-ACETAMINOPHEN 7.5-325 MG TABS 1 po QID PRN Pain 2011 HYDROCODONE-ACETAMINOPHEN 78660325302 No Longer Active Kalpesh Dong MD Active CLINDAMYCIN HCL 300 MG CAPS 1 po q6hr x 7 days CLINDAMYCIN HCL 55061992652 No Longer Active Edilberto Marino DO Active PREDNISONE 20 MG TAB 2 tabs daily for 4 days, 1 t ab daily for 4 days, 1/2 tab daily for 4 days PREDNISONE 26001077023 No Longer Active Edilberto Marino DO Active PERCOCET 5-325 MG TABS 1 tablet by mouth every 6 hours as ne eded for pain OXYCODONE-ACETAMINOPHEN 31071014833 No Longer Active Abdirahman Rios MD Active VITAMINS TABS Take one by mouth daily MV & MIN W/FE-FA TABS 71028844440 No Longer Active Abdirahman Rios MD Active LUIS 3-0.02 MG TABS 1 tablet by mouth daily as directed DROSPIRENONE-ETHINYL ESTRADIOL 28387312469 No Longer Active Abdirahman Rios MD Active LORATADINE 10 MG TABS 1 tablet by mouth daily L ORATADINE 92662234108 No Longer Active Kalpesh Dong MD Active HYDROCODONE-ACETAMINOPHEN 5-325 MG TABS 1 po q 6hr PRN Pain 2010 HYDROCODONE-ACETAMINOPHEN 98816167058 No Longer Active Edilberto Marino DO Active BACTRIM DS 800-160 MG TAB 1 tab by mouth twice daily 2 TRIMETHOPRIM-SULFAMETHOXAZOLE 96256928422 No Longer Active Abdirahman Rios MD Active 28-0.8 MG TABS Take one by mouth daily 09/20 VIT-FE FUMARATE-FA 28784707787 No Longer Active Abdirahman Rios MD Active CIPRO 500 MG TAB 1 tablet by mouth twice daily CIPROFLOXACIN HCL 30577218859 No Longer Active Abdirahman Rios MD Active BENADRYL 25 MG CAP 1 po q8hr PRN Congestion DIPHENHYDRAMINE HCL 71464846805 No Longer Active Abdirahman Rios MD Active ZOLOFT 50 MG TAB 1 po qd SERTRALINE HCL 128069 51784 No Longer Active Abdirahman Rios MD Active AMOXICILLIN 875 MG TABS 1 tab by mouth twice daily 201 08/09/13 AMOXICILLIN 43985826244 No Longer Active Abdirahman Rios MD Activ e AMOXICILLIN 875 MG TABS 1 tab by mouth twice daily 201 07/19/27 AMOXICILLIN 27738280977 No Longer Active Abdirahman Rios MD Activ e BACTRIM DS 800-160 MG TAB 2 tab by mouth twice daily 2 TRIMETHOPRIM-SULFAMETHOXAZOLE 01531779824 No Longer Active Abdirahman Rios MD Active KEFLEX 500 MG CAP 1 po tid x 10 days CEPHALEXIN 15632094162 No Longer Active Abdirahman Rios MD Active AMOXICILLIN 875 MG TABS 1 tab by mouth twice daily 201 07/18/07 AMOXICILLIN 43677958770 No Longer Active Abdirahman Rios MD Activ e BACTRIM DS 800-160 MG TAB 2 tab by mouth twice daily 2 BACTRIM DS 800-160 MG TAB 207797 TRIMETHOPRIM-SULFAMETHOXAZOLE Inactive ZOLOFT 50 MG TAB 1 po qd ZOLOFT 50 MG TAB 3129 41 SERTRALINE HCL Inactive BENADRYL 25 MG CAP 1 po q8hr PRN Congestion BENADRYL 25 MG CAP [id number] DIPHENHYDRAMINE HCL Inactive 28-0.8 MG TABS Take one by mouth daily 09/20 28-0.8 MG TABS VIT-FE FUMARATE-FA Inactive HYDROCODONE-ACETAMINOPHEN 5-325 MG TABS 1 po q 6hr PRN Pain 2010 HYDROCODONE-ACETAMINOPHEN 5-325 MG TABS 097982 HYDROCODONE-ACETAMINOPHEN Inactive LORATADINE 10 MG TABS 1 tablet by mouth daily LORATADINE 10 MG TABS 563337 LORATADINE Inactive LUIS 3-0.02 MG TABS 1 tablet by mouth daily as directed LUIS 3-0.02 MG TABS 895212 DROSPIRENONE-ETHINYL ESTRADIOL Inactive VITAMINS TABS Take one by mouth daily VITAMINS TABS MV & MIN W/FE-FA TABS Inactive PERCOCET 5-325 MG TABS 1 tablet by mouth every 6 hours as ne eded for pain PERCOCET 5-325 MG TABS 5244682 OXYCODONE-ACETAMIN OPHEN Inactive PREDNISONE 20 MG TAB 2 tabs daily for 4 days, 1 t ab daily for 4 days, 1/2 tab daily for 4 days PREDNISONE 20 MG TAB 961172 PREDNISON E Inactive CLINDAMYCIN HCL 300 MG CAPS 1 po q6hr x 7 days CLINDAMYCIN HCL 300 MG CAPS 249747 CLINDAMYCIN HCL Inactive HYDROCODONE-ACETAMINOPHEN 7.5-325 MG TABS 1 po QID PRN Pain 2011 HYDROCODONE-ACETAMINOPHEN 7.5-325 MG TABS 079736 HYDROCODONE-ACETAMINOPHEN Inactive SPIRONOLACTONE 25 MG TAB 1 tablet by mouth daily 01/22 SPIRONOLACTONE 25 MG TAB 286545 SPIRONOLACTONE Inactive IBUPROFEN 600 MG TAB 1 po q6-8hr PRN IBUPROFEN 600 MG TAB 977720 IBUPROFEN Inactive FERROUS SULFATE 325 (65 FE) MG TABS 1 tablet by mouth twice yung y FERROUS SULFATE 325 (65 FE) MG TABS 829076 FERROUS SULF ATE Inactive HYDROCODONE-ACETAMINOPHEN 7.5-500 MG TABS 1-2 every 4 hours as needed HYDROCODONE-ACETAMINOPHEN 7.5-500 MG TABS HYDROCODONE-ACETAMINOPHEN Inactive GENERESS FE 0.8-25 MG-MCG CHEW Take one by mouth daily GENERESS FE 0.8-25 MG-MCG CHEW [id number] NORETHIN-ETH ESTRADIOL-FE Inactive LORTAB 5 5-500 MG TABS 1/2 to 1 tablet by mouth go ry 4 hours as needed for pain LORTAB 5 5-500 MG TABS HYDROCODONE-A CETAMINOPHEN Inactive BACTRIM DS 800-160 MG TAB 1 tab by mouth twice daily 2 BACTRIM DS 800-160 MG TAB 101109 TRIMETHOPRIM-SULFAMETHOXAZOLE Inac tive HYDROCODONE-ACETAMINOPHEN 5-325 MG TABS 1 po q 6hr PRN Pain 2011 HYDROCODONE-ACETAMINOPHEN 5-325 MG TABS 815091 HYDROCODONE-ACETAMINOPHEN Inactive DOXYCYCLINE HYCLATE 100 MG CAPS Take one (1) tablet by mouth twice a day DOXYCYCLINE HYCLATE 100 MG CAPS [id number] DOXYCYCLINE HYCLATE Inactive PENICILLIN V POTASSIUM 500 MG TAB 1 four times a day 2 PENICILLIN V POTASSIUM 500 MG TAB 589133 PENICILLIN V POTASSIUM [place] ctive PRISTIQ 50 MG [id number] 1 po qd PRISTIQ 50 MG [id number] DESVENLAFAXINE SUCCINATE Inactive TYLENOL/CODEINE #3 300-30 MG TAB 1-2 po q6hr PRN Pain TYLENOL/CODEINE #3 300-30 MG TAB 973697 ACETAMINOPHEN-CODEINE Inact krishna CEPHALEXIN 500 MG TABS Take one by mouth four times daily, morning, noon, early evening and bedtime. CEPHALEXIN 500 MG TABS 594396 CEPHALEXIN Inactive LORTAB 5 5-500 MG TABS 1/2 to 1 tablet by mouth go ry 6 hours as needed for pain LORTAB 5 5-500 MG TABS HYDROCODONE-A CETAMINOPHEN Inactive AMITRIPTYLINE HCL 25 MG TAB 1 tab by mouth daily 60 minutes before bedtime AMITRIPTYLINE HCL 25 MG TAB 785354 AMITRIPTYLINE HCL Inactive AMOXICILLIN 500 MG TABS 2 tabs PO bid x 10 d 7 AMOXICILLIN 500 MG TABS 775586 AMOXICILLIN Inactive IMPLANON 68 MG IMPL IMPLANTED IN LEFT ARM IMPLANON 68 MG IMPL ETONOGESTREL Inactive HYDROCODONE-ACETAMINOPHEN 5-325 MG TABS 1 PO tid PRN pain 5 HYDROCODONE-ACETAMINOPHEN 5-325 MG TABS 806134 HYDROCODONE-ACETAMIN OPHEN Inactive BACTRIM DS 800-160 MG TAB 1 tab by mouth twice daily 2 BACTRIM DS 800-160 MG TAB [id number] TRIMETHOPRIM-SULFAMETHOXAZOLE Inac tive CEPHALEXIN 500 MG CAPS 1 PO bid x 7 days CEPHALEXIN 500 MG CAPS 769076 CEPHALEXIN Inactive HYDROCODONE-ACETAMINOPHEN 5-325 MG TABS 1 tab by mouth every 6 hours as needed HYDROCODONE-ACETAMINOPHEN 5-325 MG TABS 506002 HYDROCODONE-ACETAMINOPHEN Inactive PROMETHAZINE-CODEINE 6.25-10 MG/5ML SYRP 1 tsp every 6 hrs prn c ough PROMETHAZINE-CODEINE 6.25-10 MG/5ML SYRP 125378 PROMETH AZINE-CODEINE Inactive IBUPROFEN 800 MG TAB 1 pill three times daily as needed for pain IBUPROFEN 800 MG TAB 622709 IBUPROFEN Inactive KEFLEX 500 MG CAP 1 tab po tid KEFLEX 500 MG CAP 633570 CEPHALEXIN Inactive HYDROCODONE-ACETAMINOPHEN 7.5-325 MG TABS 1 four times a day as needed for pain HYDROCODONE-ACETAMINOPHEN 7.5-325 MG TABS 149570 HYDROCODONE-ACETAMINOPHEN Inactive BACTRIM DS 800-160 MG TABS by mouth twice a day 11/05 BACTRIM DS 800-160 MG TABS [id number] SULFAMETHOXAZOLE-TRIMETHOPRIM Inactive IBUPROFEN 800 MG TABS 1 tid prn IBUPROFEN 800 MG TABS 170604 IBUPROFEN Inactive ENDOCET 10-325 MG TABS 1 q 6 hr prn ENDOC ET 10-325 MG TABS 0916957 OXYCODONE-ACETAMINOPHEN Inactive HYDROCODONE-ACETAMINOPHEN 7.5-325 MG TABS 1 by mouth e very 6 hours as needed for pain HYDROCODONE-ACETAMINOPHEN 7.5-325 MG TABS 349982 HYDROCODONE-ACETAMINOPHEN Inactive PERCOCET 7.5-325 MG TABS 1 PO q 8 hrs PRN pain PERCOCET 7.5-325 MG TABS 9587831 OXYCODONE-ACETAMINOPHEN Inactive LIDODERM 5 % PTCH One patch to painful area [place] N. On for 12 hrs, off for 12 hrs. LIDODERM 5 % [facility] 5556403 LIDOCAINE Inactiv e PERCOCET 7.5-325 MG TABS 1 PO tid PRN pain PERCOCET 7.5- 325 MG TABS 4522397 OXYCODONE-ACETAMINOPHEN Inactive MOBIC 15 MG TABS 1 tab daily MOBIC 15 MG TABS 15 2695 MELOXICAM Inactive CYCLOBENZAPRINE HCL 10 MG TABS 1/2 - 1 tab PO tid PRN back p ain, muscle spasm CYCLOBENZAPRINE HCL 10 MG TABS 938134 CYCLOBENZA JOSEPH HCL Inactive LORATADINE 10 MG TABS 1 tablet by mouth daily LORATADINE 10 MG TABS 917247 LORATADINE Inactive HYDROCODONE-ACETAMINOPHEN 10-325 MG TABS 1 by mouth ev chaka 8 hours as needed for pain HYDROCODONE-ACETAMINOPHEN 10-325 MG TABS 196741 HYDROCODONE-ACETAMINOPHEN Inactive LC-5 LIDOCAINE 5 % CREA apply 1 time daily to affected area 2013 LC-5 LIDOCAINE 5 % CREA 2087248 LIDOCAINE (ANORECTAL) In active PERCOCET 5-325 MG TAB 1 every 6 hours as needed PERCOCET 5-325 MG TAB 4645351 OXYCODONE-ACETAMINOPHEN Inactive KEFLEX 500 MG CAP 1 po qid KEFLEX 500 MG CAP 30 9114 CEPHALEXIN Inactive PROAIR HFA 108 (90 BASE) MCG/ACT AERS 2 puff q 4-6 hrs PRN 01/24 PROAIR HFA 108 (90 BASE) MCG/ACT AERS ALBUTEROL SULFATE Inactive PERCOCET 10-325 MG ORAL TABS 1 every 4 hours as needed PERCOCET 10-325 MG ORAL TABS 5972326 OXYCODONE-ACETAMINOPHEN Inactiv e EMLA 2.5-2.5 % EXT CREA apply to skin lesion q 6 hours, prn 2014 EMLA 2.5-2.5 % EXT CREA [id number] LIDOCAINE-PRILOCAINE [place] [facility] PERCOCET 10-325 MG TABS 1 tab by mouth every 6 hours , use sparingly for severe pain PERCOCET 10-325 MG TABS [id number] OXYCODONE-ACETAMINOPHEN Inactive GLUCOPHAGE 500 MG ORAL TABS one by mouth 3 times a day GLUCOPHAGE 500 MG ORAL TABS [id number] METFORMIN HCL Inactive HYDROCODONE-ACETAMINOPHEN 5-325 MG TABS 1 po q6hr PRN pain 06/30 HYDROCODONE-ACETAMINOPHEN 5-325 MG TABS [id number] HYDROCOD ONE-ACETAMINOPHEN Inactive PERCOCET 5-325 MG TAB 1 tab po q 6 -8 hours, prn for severe pain PERCOCET 5-325 MG TAB [id number] OXYCODONE-ACETAMINOPHEN In active PERCOCET 5-325 MG ORAL TABS 1 every 6 hours as needed PERCOCET 5-325 MG ORAL TABS [id number] OXYCODONE-ACETAMINOPHEN Inactive DICLOFENAC SODIUM 50 MG TBEC 1 tablet by mouth four times da tom PRN Pain DICLOFENAC SODIUM 50 MG TBEC [id number] DICLOFENAC S ODIUM Inactive AUGMENTIN 500-125 MG ORAL TABS 1 by mouth twice a day AUGMENTIN 500-125 MG ORAL TABS [id number] AMOXICILLIN-POT CLAVULANATE I nactive HYDROCODONE-ACETAMINOPHEN 5-325 MG TABS 1 po q6hr PRN Pain 03/09 HYDROCODONE-ACETAMINOPHEN 5-325 MG TABS [id number] HYDROCOD ONE-ACETAMINOPHEN Inactive CYCLOBENZAPRINE HCL 10 MG TABS 1 tablet by mouth three times daily as needed for muscle spasm/pain CYCLOBENZAPRINE HCL 10 MG TABS [id number] 8 CYCLOBENZAPRINE HCL Inactive SPRINTEC 28 0.25-35 MG-MCG TABS 1 pill by mouth daily for bi rth control SPRINTEC 28 0.25-35 MG-MCG TABS [id number] NORGESTIMATE-ETH ESTRADIOL Inactive PERCOCET 5-325 MG TAB 1 tab po q 6 hours, prn severe pain PERCOCET 5-325 MG TAB [id number] OXYCODONE-ACETAMINOPHEN Inactive IBUPROFEN 600 MG ORAL TABS 1 by mouth twice a day 2014 IBUPROFEN 600 MG ORAL TABS [id number] IBUPROFEN Inactive CYMBALTA 30 MG CPEP 1 cap by mouth daily CYMBALTA 30 MG CPEP [id number] DULOXETINE HCL Inactive HYDROCODONE-ACETAMINOPHEN 5-325 MG TABS 1 po q6hr PRN Pain 04/09 HYDROCODONE-ACETAMINOPHEN 5-325 MG TABS 180807 HYDROCOD ONE-ACETAMINOPHEN Inactive TRAZODONE HCL 100 MG TAB 0.5 to 1 po qHS PRN Insomnia TRAZODONE HCL 100 MG TAB [id number] TRAZODONE HCL Inactive ALPRAZOLAM 0.5 MG TABS 1 po BID PRN Anxiety ALPRAZOLAM 0.5 MG TABS 105275 ALPRAZOLAM Inactive [id number] 50-325-40 MG ORAL CAPS 1-2 po TID IL N Headache [id number] 50-325-40 MG ORAL CAPS 2 79916 [id number]-[id number] Inactive HYDROCODONE-ACETAMINOPHEN 5-325 MG TABS 1 po TID PRN Pain 9 HYDROCODONE-ACETAMINOPHEN 5-325 MG TABS 932768 HYDROCODONE-ACETAMIN OPHEN Inactive PERCOCET 10-325 MG TABS 1 tablet every 8 hours as needed for antonia n PERCOCET 10-325 MG TABS [id number] OXYCODONE-ACETAMINOPHEN Inactive ONDANSETRON 4 MG TBDP 1 q4h PRN nausea ON DANSETRON 4 MG TBDP 918653 ONDANSETRON Inactive VIIBRYD 10 & 20 & 40 MG KIT 1 po qd as directed 07/24 VIIBRYD 10 & 20 & 40 MG KIT VILAZODONE HCL Inactive DICLOFENAC SODIUM 50 MG TBEC 1 tablet by mouth four times da tom PRN Pain DICLOFENAC SODIUM 50 MG TBEC 066475 DICLOFENAC S ODIUM Inactive PERCOCET 10-325 MG ORAL TABS one every 6 hours prn pain PERCOCET 10-325 MG ORAL TABS 3767663 OXYCODONE-ACETAMINOPHEN Inactiv e PERCOCET 10-325 MG ORAL TABS take 1 tab by mouth q 4hours as needed for pain PERCOCET 10-325 MG ORAL TABS 7500449 OXYCODONE-ACETAMINOPHEN Inactive FLONASE ALLERGY RELIEF 50 MCG/ACT NASAL SUSP One spray in each nostril twice a day. FLONASE ALLERGY RELIEF 50 MCG/ACT NASAL S [facility] 724286 FLUTICASONE PROPIONATE Inactive AUGMENTIN 875-125 MG TAB 1 tab by mouth twice daily with food 20 23/05/16 AUGMENTIN 875-125 MG TAB 065132 AMOXICILLIN-POT [place] Inactive HYDROCODONE-ACETAMINOPHEN 5-325 MG TABS 1 tab by mouth every 6 hours as needed for pain HYDROCODONE-ACETAMINOPHEN 5-325 MG TABS 8 94961 HYDROCODONE-ACETAMINOPHEN Inactive PERCOCET 10-325 MG TABS 1 tablet every 8 hours as needed for antonia n PERCOCET 10-325 MG TABS 6254860 OXYCODONE-ACETAMINOPHEN Inactive LC-4 LIDOCAINE 4 % EXT CREA apply q 6 hours, prn 08/03 LC-4 LIDOCAINE 4 % EXT CREA 1203150 LIDOCAINE Inactive PROMETHAZINE HCL 25 MG TABS 1 four times a day as needed for nausea/vomiting PROMETHAZINE HCL 25 MG TABS 417358 PROMETHAZINE HCL Inactive LC-4 LIDOCAINE 4 % EXT CREA apply to painful area every 12 h ours or as needed LC-4 LIDOCAINE 4 % EXT CREA 0992341 LIDOCAINE Inactive PERCOCET 10-325 MG ORAL TABS 1 every 4 hous as needed PERCOCET 10-325 MG ORAL TABS 3859356 OXYCODONE-ACETAMINOPHEN Inactiv e GLYDO 2 % EXT GEL apply to painful areas as needed 201 12/10/13 GLYDO 2 % EXT GEL 9471971 LIDOCAINE HCL Inactive GOIPDSIQVK-FPHF-[id number] 50-325-40 MG ORAL TABS 1 po TID PRN Headaches [id number]-[id number]-IULNGBRS 50-325-40 MG ORAL TABS 138950 ACGCXNHGKR-CSMK-[id number] Inactive AMOXICILLIN 875 MG TABS 1 tab by mouth twice daily 201 07/18/07 AMOXICILLIN 875 MG TABS 763178 AMOXICILLIN Inactive KEFLEX 500 MG CAP 1 po tid x 10 days KEFLEX 500 MG CAP 438948 CEPHALEXIN Inactive AMOXICILLIN 875 MG TABS 1 tab by mouth twice daily 201 07/19/27 AMOXICILLIN 875 MG TABS 235190 AMOXICILLIN Inactive AMOXICILLIN 875 MG TABS 1 tab by mouth twice daily 201 08/09/13 AMOXICILLIN 875 MG TABS 382733 AMOXICILLIN Inactive CIPRO 500 MG TAB 1 tablet by mouth twice daily CIPRO 500 MG TAB 303491 CIPROFLOXACIN HCL Inactive BACTRIM DS 800-160 MG TAB 1 tab by mouth twice daily 2 BACTRIM DS 800-160 MG TAB 371576 TRIMETHOPRIM-SULFAMETHOXAZOLE Inac tive LEVAQUIN 500 MG TABS 1 PO q day x 7 days LEVAQUIN 500 MG TABS 137997 LEVOFLOXACIN Inactive CLINDAMYCIN HCL 300 MG CAPS 1 po QID x 7 days CLINDAMYCIN HCL 300 MG CAPS 044870 CLINDAMYCIN HCL Inactive AUGMENTIN 875-125 MG TAB 1 tab by mouth twice daily with food 20 22/05/07 AUGMENTIN 875-125 MG TAB 690196 AMOXICILLIN-POT [place] Inactive DIFLUCAN 150 MG TAB 1 qODay x 2 doses DIFLUCAN 150 MG TAB 635405 FLUCONAZOLE Inactive PREDNISONE 20 MG TAB 2 tabs daily for 3 days, 1 t ab daily for 3 days, 1/2 tab daily for 2 days PREDNISONE 20 MG TAB 229549 PREDNISON E Inactive AUGMENTIN 875-125 MG TAB 1 tab by mouth twice daily with food 20 21/10/13 AUGMENTIN 875-125 MG TAB 663755 AMOXICILLIN-POT [place] Inactive HYDROCODONE-ACETAMINOPHEN 5-325 MG TABS 1 tab by mouth every 6 hours as needed PRN Pain HYDROCODONE-ACETAMINOPHEN 5-325 MG TABS 8 92591 HYDROCODONE-ACETAMINOPHEN Inactive PROMETHAZINE HCL 25 MG TABS 1 four times a day as needed for nausea/vomiting PROMETHAZINE HCL 25 MG TABS 011280 PROMETHAZINE HCL Inactive AMOXICILLIN 500 MG CAPS 2 po BID x 10 days AMOXICILLIN 500 MG CAPS 810492 AMOXICILLIN Inactive Advance Directives Directive Description Start Date PERMISSION TO SHARE Immunizations Vaccine Administration Date Value Standard Alf cription Seasonal influenza vaccine, injectable, containing preservative, for > 3 years old (Afluria, FluLaval, Fluzone, Fluvirin, Fluarix, Agriflu(>= 18 yo)) Fluzone (>3 yrs.) [[id number]] Influenza, seasonal, inject able Seasonal influenza vaccine, injectable, preservative free, for > 3 years old (Afluria, FluLaval, Fluzone, Fluvirin, Fluarix, Agriflu(>= 18 yo)) Fluzone preservative free (>3 yrs.) [[id number]] Influenza, seasonal, injectable, preservative free Seasonal influenza vaccine, injectable, containing preservative, for > 3 years old (Afluria, FluLaval, Fluzone, Fluvirin, Fluarix, Agriflu(>= 18 yo)) Fluzone (>3 yrs.) [[id number]] Influenza, seasonal, inject able Seasonal influenza vaccine, injectable, containing preservative, for > 3 years old (Afluria, FluLaval, Fluzone, Fluvirin, Fluarix, Agriflu(>= 18 yo)) Fluzone (>3 yrs.) [[id number]] Influenza, seasonal, inject able dT (Diphtheria and [...] pressure, diastolic - 8462-4 84 mm[Hg] BP ribiero blood pressure, systolic - 8480-6 127 mm[Hg] [...] - 3141-9 228.4 [lb_av] Weigh t Measured Diagnostic Results Date [...] ... - Chemistry sodium, serum 137 mmol/L 890-451 2951/02/24 carbon dioxide, venous blood 26.3 mmol/L 21.0-32 [...] Panel - Chemistry cholesterol, serum 181 mg/dL [phone]/09/01 triglyceride, serum, fasting 341 mg/dL 30-200 HDL [...] negative Encounters Code Encounter Date Provider Facility CPT-20036 Level 3 Est. Patient 16:33:24 CDT Kalpesh goins MD [facility] CPT-14319 Level 3 Est. Patient 08:29:37 CDT Hira muniz [facility] CPT-54426 Level 3 Est. Patient 10:28:25 CDT Hira muniz [facility] CPT-82126 Level 4 Est. Patient 16:38:26 CAGE FIGHTER Abdirahman Rios MD [facility] CPT-13787 Level 3 Est. Patient 05:31:41 CAGE FIGHTER Kalpesh goins MD [facility] CPT-29532 Level 3 Est. Patient 11:22:02 CAGE FIGHTER Hira muniz [facility] CPT-43645 Level 3 Est. Patient 21:00:18 CAGE FIGHTER Rajni danielson [facility] CPT-14117 Level 3 Est. Patient 14:15:00 CAGE FIGHTER Kalpesh goins MD [facility] CPT-51366 Level 2 Est. Patient 19:57:52 CAGE FIGHTER Rajni danielson [employer]IOR [employer]ATION ENGINE[employer] [facility] CPT-67268 Level 3 Est. Patient 16:58:40 CAGE FIGHTER Bj funes MD [facility] CPT-88641 Level 3 Est. Patient 08:51:33 CDT Kalpesh goins MD [facility] CPT-87178 Level 4 Est. Patient 14:14:53 CDT Abdirahman Rios MD [facility] CPT-26981 Level 3 Est. Patient 15:47:40 CDT Kalpesh goins MD [facility]-84286 Level 3 Est. Patient 10:57:26 CDT Abdirahman Rios MD [facility]-50573 Level 3 Est. Patient 14:29:53 CDT Abhinav Galvan MD [facility] CPT-71060 Level 2 Est. Patient 16:33:01 CDT Kalpesh goins MD [facility] CPT-21183 Level 4 Est. Patient 16:44:56 CDT Abdirahman Rios MD [facility] CPT-49006 Level 2 Est. Patient 07:49:32 CDT Kalpesh goins MD [facility] CPT-54457 Level 3 New Patient 15:47:11 CAGE FIGHTER Bj huber MD [facility] CPT-01843 Level 4 Est. Patient 14:37:38 CAGE FIGHTER Abdirahman Rios MD [facility] CPT-50953 Level 2 Est. Patient 13:32:17 CAGE FIGHTER Kalpesh goins MD [facility] CPT-43001 Level 3 Est. Patient 17:32:57 CAGE FIGHTER Edilberto tiwari [facility] CPT-71831 Level 3 Est. Patient 17:22:33 CAGE FIGHTER Edilberto tiwari [facility] CPT-76981 Level 2 Est. Patient 16:57:09 CAGE FIGHTER Kalpesh goins MD [facility] CPT-94514 Level 3 Est. Patient 14:03:08 CAGE FIGHTER Abdirahman Rios MD [facility] CPT-20357 Level 3 Est. Patient 18:12:34 CDT Shola Wright [facility] CPT-25658 Level 3 Est. Patient 19:34:46 CDT Shola Wright [facility] CPT-74912 Level 3 Est. Patient 14:19:37 CDT Abdirahman Rios MD [facility] CPT-49020 Level 3 Est. Patient 14:11:58 CDT Kalpesh goins MD [facility] CPT-89351 Level 3 Est. Patient 16:50:00 CDT Michelle MERCADO [facility] CPT-68748 Level 3 Est. Patient 17:11:32 CAGE FIGHTER Brandie bates MD PhD [facility] CPT-39326 Level 3 Est. Patient 16:31:47 CAGE FIGHTER Shola Wright [facility] CPT-11776 Level 3 Est. Patient 17:51:10 CAGE FIGHTER Abhinav Galvan MD [facility] CPT-47420 Level 4 Est. Patient 12:54:56 CAGE FIGHTER Kalpesh goins MD [facility] CPT-00679 Level 4 Est. Patient 12:53:56 CAGE FIGHTER Kalpesh goins MD [facility] CPT-79090 Level 3 Est. Patient 17:56:58 CDT Shola Wright [facility] CPT-37402 Level 3 Est. Patient 14:26:20 CDT Janak butcher [facility] CPT-68959 Level 3 Est. Patient 09:38:41 CDT Shola Wright [facility] CPT-00342 Level 3 Est. Patient 14:45:26 CDT Edilberto tiwrai [facility] CPT-00986 Level 3 Est. Patient 10:51:33 CDT Hira muniz APRN [facility] CPT-01843 Level 3 Est. Patient 11:57:55 CAGE FIGHTER Shola Wright [facility] CPT-69961 Level 3 Est. Patient 09:53:33 CAGE FIGHTER Edilberto tiwari [facility] CPT-25189 Level 3 Est. Patient 14:42:54 CAGE FIGHTER Abhinav Galvan MD [facility] CPT-97396 Level 3 Est. Patient 15:10:02 CDT Janak Stevenamira butcher [facility] CPT-47879 Level 3 Est. Patient 15:20:20 CDT Theo dennis MD [facility]-49958 Level 2 Est. Patient 14:08:57 CDT Kalpesh goins MD [facility]-27112 Level 3 Est. Patient 13:56:19 CDT Abdirahman Rios MD [facility] CPT-92719 Level 3 Est. Patient 13:59:37 CDT Abdirahman Rios MD [facility] CPT-55886 Level 2 Est. Patient 14:44:59 CDT Kalpesh goins MD [facility] CPT-74319 Level 3 Est. Patient 06:06:23 CDT Edilberto tiwari [facility] CPT-14270 Level 3 Est. Patient 15:23:54 CDT Abdirahman Rios MD [facility] CPT-43814 Level 3 Est. Patient 15:43:49 CDT Abdirahman Rios MD [facility] CPT-24508 Level 3 Est. Patient 12:46:47 CAGE FIGHTER Abdirahman Rios MD [facility] CPT-86507 Level 3 Est. Patient 08:13:35 CAGE FIGHTER Abdirahman Rios MD [facility] CPT-97891 Level 2 Est. Patient 09:36:42 CAGE FIGHTER Abdirahman Rios MD [facility] CPT-69613 Level 3 Est. Patient 10:56:43 CDT Abdirahman Rios MD [facility] CPT-69864 Level 3 Est. Patient 18:24:52 CDT Abdirahman Rios MD [facility] CPT-43688 Level 3 Est. Patient 13:27:22 CDT Abdirahman Rios MD [facility] Procedures Code Procedure Name Date Entry Date Standard Desc ription CPT-81904 Postop F/U Visit 16:21:51 CAGE FIGHTER CPT-91599 Postop F/U Visit 17:09:41 CAGE FIGHTER CPT-56812 Postop F/U Visit 14:08:43 CAGE FIGHTER CPT-12498 Postop F/U Visit 15:18:16 CAGE FIGHTER CPT-36073 Postop F/U Visit 15:03:49 CAGE FIGHTER CPT-18450 Postop F/U Visit 14:45:23 CAGE FIGHTER CPT-31111 Postop F/U Visit 14:11:03 CAGE FIGHTER CPT-28096 Postop F/U Visit 18:21:21 CAGE FIGHTER CPT-02584 Postop F/U Visit 15:57:12 CAGE FIGHTER CPT-88008 Bladder Instillation 16:58:41 CAGE FIGHTER 6 CPT-80198 Fluzone Quadrivalent Intramuscular Suspe nsion 0.5 ML 15:20:56 CAGE FIGHTER CPT-57609 Immunization Single Admin 15:20:56 CAGE FIGHTER 2014 CPT-98543 Excis pilonidal cyst simple 08:51:34 CDT 20 22/04/20 CPT-73426 Venipuncture Draw Fee 14:27:29 CDT CPT-59468 Postop F/U Visit 15:27:43 CDT CPT-34248 Postop F/U Visit 14:40:59 CDT CPT-24485 Postop F/U Visit 15:02:46 CDT CPT-03887 Postop F/U Visit 11:29:00 CAGE FIGHTER CPT-J0696 Rocephin 1000 mg (Ceftriaxone) 17:22:33 CAGE FIGHTER CPT-98607 Postop F/U Visit 18:41:07 CAGE FIGHTER CPT-84353 Postop F/U Visit 08:19:08 CAGE FIGHTER CPT-83183 Immunization Single Admin 16:41:53 CDT 2013 CPT-50965 Fluzone Quadrivalent Intramuscular Suspe nsion 0.5 ML 16:41:53 CDT CPT-OV Office Visit 16:39:18 CDT CPT-OV Office Visit 16:16:36 CDT CPT-OV Office Visit 15:34:48 CDT CPT-14883 Postop F/U Visit 14:50:12 CDT CPT-98467 Postop F/U Visit 14:41:10 CDT CPT-24150 Venipuncture Draw Fee 11:38:04 CAGE FIGHTER CPT-76256 Postop F/U Visit 19:02:59 CAGE FIGHTER CPT-00737 Postop F/U Visit 12:04:54 CAGE FIGHTER CPT-36428 Administration single or combination vac cine inc oral 15:56:43 CDT CPT-21197 Influenza split virus > age 3 15:56:43 CDT CPT-39753 Hand comp min 3V 14:25:19 CDT CPT-61585 Postop F/U Visit 21:40:51 CDT CPT-94691 Postop F/U Visit 10:58:43 CDT CPT-66248 Administration single or combination vac cine inc oral 12:33:54 CAGE FIGHTER CPT-81231 Influenza Preservative Free split virus >age 3 12:33:54 CAGE FIGHTER CPT-30420 Administration single or combination vac cine inc oral 09:30:51 CDT CPT-37903 Influenza split virus > age 3 09:30:51 CDT CPT-10629 Postop F/U Visit 15:14:53 CDT CPT-84497 Postop F/U Visit 13:50:14 CDT CPT-67917 Postop F/U Visit 13:34:52 CDT CPT-OV Office Visit 16:55:03 CDT CPT-52210 [place] of cervix w bx ECC 13:32:50 CDT 10/19 CPT-J1885 Toradol 60 mg (Ketorolac) 15:31:59 CDT 2011 CPT-J1885 Toradol 60 mg (Ketorolac) 15:23:54 CDT 2011 CPT-13683 Visit 11:34:37 CAGE FIGHTER CPT-29694 Visit 10:52:39 CAGE FIGHTER CPT-27355 Visit 10:12:02 CAGE FIGHTER CPT-09456 Visit 11:22:43 CAGE FIGHTER CPT-37164 Visit 11:24:12 CAGE FIGHTER CPT-78660 Visit 10:47:05 CAGE FIGHTER CPT-OV Office Visit 10:26:16 CAGE FIGHTER CPT-OV Office Visit 15:34:31 CAGE FIGHTER CPT-77042 Visit 10:42:08 CAGE FIGHTER CPT-60091 Visit 10:52:45 CAGE FIGHTER CPT-000 Give Appropriate Flu Vaccine 16:56:41 CDT 2 CPT-31036 Administration single or combination vac cine inc oral 10:33:21 CDT CPT-74229 Influenza split virus > age 3 10:33:21 CDT CPT-58645 Visit 13:23:09 CDT CPT-18743 Visit 18:24:52 CDT CPT-55955 Sono OB comp > 14 weeks 12:07:49 CDT 04/07
--- OUTSIDE RECORDS SUMMARY | 2020-01-18 16:39 | XMS REPORT | Clinical Summary ---
Author Author Admin, Jeri Cabrera [facility] A[facility] Address Unknown Phone Unavailable Allergies, Adverse Reactions, [...] Chronic pain syndrome 338.4 Active Rajni Alcazar PHILOSOPHY INSTRUCTOR Chronic pain syndrome AFTERCARE FOLLOW SURGERY [...] Generic Name NDC Status Provider Patient Instruction [id number] 50-325-40 MG ORAL TABS 1 po TID PRN Headaches [id number] Active Abdirahman owen MD Active CHANTIX STARTING MONTH MARGARITA 0.5 MG X 11 & 1 MG X 42 TAB S 0.5mg daily for 3 days, then 0.5mg BID for 4 days, then 1mg BID VARENICL INE TARTRATE 87169649439 Active Abdirahman Rios MD Active AMOXICILLIN 500 MG CAPS 2 po BID x 10 days AMOX ICILLIN 89416762860 Active Abdirahman Rios MD Active PROMETHAZINE HCL 25 MG TABS 1 four times a day as needed for nausea/vomiting PROMETHAZINE HCL 89307415192 No Longer Active Abdirahman Rios MD Active LC-4 LIDOCAINE 4 % EXT CREA apply q 6 hours, prn 08/03 LIDOCAINE 08162598997 No Longer Active Kalpesh Dong MD Active PERCOCET 10-325 MG TABS 1 tablet every 8 hours as needed for antonia n OXYCODONE-ACETAMINOPHEN 14076107085 No Longer Active Kalpesh Dong MD Active HYDROCODONE-ACETAMINOPHEN 5-325 MG TABS 1 tab by mouth every 6 hours as needed for pain HYDROCODONE-ACETAMINOPHEN 70614763028 No Longer Active Kalpesh Dong MD Active PERCOCET 10-325 MG ORAL TABS 1 every 4 hous as needed OXYCODONE-ACETAMINOPHEN 28632068264 Active Hira Moser APRN Active GLYDO 2 % EXT GEL apply to painful areas as needed LIDOCAINE HCL 39614529575 Active Kalpesh Dong MD Active LC-4 LIDOCAINE 4 % EXT CREA apply to painful area every 12 h ours or as needed LIDOCAINE 36429192819 Active Kalpesh Dong MD Active AUGMENTIN 875-125 MG TAB 1 tab by mouth twice daily with food 20 23/05/16 AMOXICILLIN-POT CLAVULANATE 39248766157 No Longer Active Lizeth hi Yokum PHILOSOPHY INSTRUCTOR 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 FLUTICASONE PROPIONATE 64426926401 No Longer Ac tive Rajni Yokum PHILOSOPHY INSTRUCTOR Active PERCOCET 10-325 MG ORAL TABS take 1 tab by mouth q 4hours as needed for pain OXYCODONE-ACETAMINOPHEN 26623880602 No Longer Active Rajni Yokum PHILOSOPHY INSTRUCTOR Active PERCOCET 10-325 MG ORAL TABS one every 6 hours prn pain OXYCODONE-ACETAMINOPHEN 57887149840 No Longer Active Rajni Yokum PHILOSOPHY INSTRUCTOR Active IBUPROFEN 800 MG TABS 1 tab po tid, with food I BUPROFEN 57586831784 Active Hira Moser PHILOSOPHY INSTRUCTOR Active DICLOFENAC SODIUM 50 MG TBEC 1 tablet by mouth four times da tom PRN Pain DICLOFENAC SODIUM 68856153873 No Longer Active Rajni Yokum PHILOSOPHY INSTRUCTOR Active VIIBRYD 10 & 20 & 40 MG KIT 1 po qd as directed 07/24 VILAZODONE HCL 60410681136 No Longer Active Rajni Yokum PHILOSOPHY INSTRUCTOR Active ONDANSETRON 4 MG TBDP 1 q4h PRN nausea ONDANSET KELBY 09221537876 No Longer Active Rajni Yokum PHILOSOPHY INSTRUCTOR Active PERCOCET 10-325 MG TABS 1 tablet every 8 hours as needed for antonia n OXYCODONE-ACETAMINOPHEN 77153818473 No Longer Active Rajni Y [place] PHILOSOPHY INSTRUCTOR Active HYDROCODONE-ACETAMINOPHEN 5-325 MG TABS 1 po TID PRN Pain 9 HYDROCODONE-ACETAMINOPHEN 65704869664 No Longer Active Abdirahman Rios MD Active [id number] 50-325-40 MG ORAL CAPS 1-2 po TID AR N Headache [id number] 81551532123 No Longer Act krishna Kalpesh Dong MD Active ALPRAZOLAM 0.5 MG TABS 1 po BID PRN Anxiety ALP RAZOLAM 86743961458 No Longer Active Kalpesh Dong MD Active TRAZODONE HCL 100 MG TAB 0.5 to 1 po qHS PRN Insomnia TRAZODONE HCL 58052154504 No Longer Active Kalpesh Dong MD Activ e HYDROCODONE-ACETAMINOPHEN 5-325 MG TABS 1 po q6hr PRN Pain 04/09 HYDROCODONE-ACETAMINOPHEN 56177054692 No Longer Active Kalpesh Dong MD Active CYMBALTA 30 MG CPEP 1 cap by mouth daily DULOXE CLEO HCL 93288391171 No Longer Active Abdirahman Rios MD Active IBUPROFEN 600 MG ORAL TABS 1 by mouth twice a day 2014 IBUPROFEN 49343307553 No Longer Active Abdirahman Rios MD Activ e PERCOCET 5-325 MG TAB 1 tab po q 6 hours, prn severe pain 1 OXYCODONE-ACETAMINOPHEN 90146128853 No Longer Active Abdirahman Rios MD Active SPRINTEC 28 0.25-35 MG-MCG TABS 1 pill by mouth daily for bi rth control NORGESTIMATE-ETH ESTRADIOL 43141011197 No Longer Acti ve Karenina Shanti PHILOSOPHY INSTRUCTOR Active CYCLOBENZAPRINE HCL 10 MG TABS 1 tablet by mouth three times daily as needed for muscle spasm/pain CYCLOBENZAPRINE HCL 92290824052 No Longer Active Matthewllina Shanti PHILOSOPHY INSTRUCTOR Active HYDROCODONE-ACETAMINOPHEN 5-325 MG TABS 1 po q6hr PRN Pain 03/09 HYDROCODONE-ACETAMINOPHEN 83269250042 No Longer Active Hira Peraza l PHILOSOPHY INSTRUCTOR Active AUGMENTIN 500-125 MG ORAL TABS 1 by mouth twice a day AMOXICILLIN-POT CLAVULANATE 26086248343 No Longer Active Hira Moser PHILOSOPHY INSTRUCTOR Active DICLOFENAC SODIUM 50 MG TBEC 1 tablet by mouth four times da tom PRN Pain DICLOFENAC SODIUM 38800903382 No Longer Active Karenin a Karmenl PHILOSOPHY INSTRUCTOR Active PROMETHAZINE HCL 25 MG TABS 1 four times a day as needed for nausea/vomiting PROMETHAZINE HCL 52238487596 No Longer Active Abdirahman Rios MD Active HYDROCODONE-ACETAMINOPHEN 5-325 MG TABS 1 tab by mouth every 6 hours as needed PRN Pain HYDROCODONE-ACETAMINOPHEN 59705402347 No Longer Active Abdirahman Rios MD Active GEMFIBROZIL 600 MG TABS 1 po BID GEMFIBROZIL 07787763 005 Active Abdirahman Rios MD Active PERCOCET 5-325 MG ORAL TABS 1 every 6 hours as needed OXYCODONE-ACETAMINOPHEN 66511589919 No Longer Active Abdirahman Rios MD Active PERCOCET 5-325 MG TAB 1 tab po q 6 -8 hours, prn for severe pain OXYCODONE-ACETAMINOPHEN 58903064470 No Longer Active Abdirahman Rios MD Active HYDROCODONE-ACETAMINOPHEN 5-325 MG TABS 1 po q6hr PRN pain 06/30 HYDROCODONE-ACETAMINOPHEN 22196601339 No Longer Active Hira Peraza l PHILOSOPHY INSTRUCTOR Active GLUCOPHAGE 500 MG ORAL TABS one by mouth 3 times a day METFORMIN HCL 66913116164 No Longer Active Hira Moser PHILOSOPHY INSTRUCTOR Ac tive PERCOCET 10-325 MG TABS 1 tab by mouth every 6 hours , use sparingly for severe pain OXYCODONE-ACETAMINOPHEN 05246172781 No Longer A ctive Abdirahman Rios MD Active EMLA 2.5-2.5 % EXT CREA apply to skin lesion q 6 hours, prn 2014 LIDOCAINE-PRILOCAINE 98736636174 No Longer Active Abdirahman Rios MD Active PERCOCET 10-325 MG ORAL TABS 1 every 4 hours as needed OXYCODONE-ACETAMINOPHEN 99151844462 No Longer Active Abdirahman Rios MD Active AUGMENTIN 875-125 MG TAB 1 tab by mouth twice daily with food 20 21/10/13 AMOXICILLIN-POT CLAVULANATE 08619632974 No Longer Active Ursula jasmina Frazell PHILOSOPHY INSTRUCTOR Active PROAIR HFA 108 (90 BASE) MCG/ACT AERS 2 puff q 4-6 hrs PRN 01/24 ALBUTEROL SULFATE 88372910543 No Longer Active Kalpesh Dong MD Active PREDNISONE 20 MG TAB 2 tabs daily for 3 days, 1 t ab daily for 3 days, 1/2 tab daily for 2 days PREDNISONE 33263265096 No Longer Active Abdirahman Rios MD Active KEFLEX 500 MG CAP 1 po qid CEPHALEXIN 499588972 20 No Longer Active Kalpesh Dong MD Active PERCOCET 5-325 MG TAB 1 every 6 hours as needed OXYCODONE-ACETAMINOPHEN 15120351604 No Longer Active Shola MCGILL Active LC-5 LIDOCAINE 5 % CREA apply 1 time daily to affected area 2013 LIDOCAINE (ANORECTAL) 35020549039 No Longer Active Hira muniz PHILOSOPHY INSTRUCTOR Active HYDROCODONE-ACETAMINOPHEN 10-325 MG TABS 1 by mouth ev chaka 8 hours as needed for pain HYDROCODONE-ACETAMINOPHEN 31231179631 No Longer Active Jillina Frazell PHILOSOPHY INSTRUCTOR Active LORATADINE 10 MG TABS 1 tablet by mouth daily L ORATADINE 14870802327 No Longer Active Jillina Frazell PHILOSOPHY INSTRUCTOR Active DIFLUCAN 150 MG TAB 1 qODay x 2 doses FLUCONAZO LE 96203373024 No Longer Active Jillina Frazell PHILOSOPHY INSTRUCTOR Active CYCLOBENZAPRINE HCL 10 MG TABS 1/2 - 1 tab PO tid PRN back p ain, muscle spasm CYCLOBENZAPRINE HCL 50664057548 No Longer Active aKren Moser APRN Active AUGMENTIN 875-125 MG TAB 1 tab by mouth twice daily with food 20 22/05/07 AMOXICILLIN-POT CLAVULANATE 11862385532 No Longer Active Loida Rios MD Active MOBIC 15 MG TABS 1 tab daily MELOXICAM 915259252 14 No Longer Active Abdirahman Rios MD Active PERCOCET 7.5-325 MG TABS 1 PO tid PRN pain OXYCODONE-ACETAMINOPHEN 77132344210 No Longer Active Abdirahman Rios MD Active LIDODERM 5 % PTCH One patch to painful area AR N. On for 12 hrs, off for 12 hrs. LIDOCAINE 06298628738 No Longer Active Abdirahman Rios MD Active PERCOCET 7.5-325 MG TABS 1 PO q 8 hrs PRN pain OXYCODONE-ACETAMINOPHEN 11633292393 No Longer Active Shola MCGILL Active HYDROCODONE-ACETAMINOPHEN 7.5-325 MG TABS 1 by mouth e very 6 hours as needed for pain HYDROCODONE-ACETAMINOPHEN 01706700834 No Longer Active Good Julian MD Active CLINDAMYCIN HCL 300 MG CAPS 1 po QID x 7 days CLINDAMYCIN HCL 18936187963 No Longer Active Abdirahman Rios MD Activ e BACTRIM DS 800-160 MG TABS 1 po BID x 7 days 5 SULFAMETHOXAZOLE-TRIMETHOPRIM 85258587723 No Longer Active Abdirahman Rios MD Active ENDOCET 10-325 MG TABS 1 q 6 hr prn OXYCODONE-ACETAMINOPHEN 15877075708 No Longer Active Abdirahman Rios MD Active IBUPROFEN 800 MG TABS 1 tid prn IBUPROFEN 820913 88678 No Longer Active Abdirahman Rios MD Active BACTRIM DS 800-160 MG TABS by mouth twice a day 11/05 SULFAMETHOXAZOLE-TRIMETHOPRIM 98251338378 No Longer Active Good Julian MD Active HYDROCODONE-ACETAMINOPHEN 7.5-325 MG TABS 1 four times a day as needed for pain HYDROCODONE-ACETAMINOPHEN 03447660944 No Longer Activ e Good Julian MD Active KEFLEX 500 MG CAP 1 tab po tid CEPHALEXIN 883075 23680 No Longer Active Hira Moser APRN Active IBUPROFEN 800 MG TAB 1 pill three times daily as needed for pain IBUPROFEN 32188051166 No Longer Active Kalpesh Dong MD Active PROMETHAZINE-CODEINE 6.25-10 MG/5ML SYRP 1 tsp every 6 hrs prn c ough PROMETHAZINE-CODEINE 97200547434 No Longer Active Kalpesh Carr Active HYDROCODONE-ACETAMINOPHEN 5-325 MG TABS 1 tab by mouth every 6 hours as needed HYDROCODONE-ACETAMINOPHEN 48837912004 No Longer Activ e Shola MCGILL Active CEPHALEXIN 500 MG CAPS 1 PO bid x 7 days CEPHAL EXIN 88422776213 No Longer Active Shola MCGILL Active BACTRIM DS 800-160 MG TAB 1 tab by mouth twice daily 2 TRIMETHOPRIM-SULFAMETHOXAZOLE 17155302339 No Longer Active Kalpesh Dong MD Active HYDROCODONE-ACETAMINOPHEN 5-325 MG TABS 1 PO tid PRN pain 5 HYDROCODONE-ACETAMINOPHEN 46711114902 No Longer Active Abhinav Galvan MD Active IMPLANON 68 MG IMPL IMPLANTED IN LEFT ARM ETONO GESTREL 37241346056 No Longer Active Hira Moser APRN Active AMOXICILLIN 500 MG TABS 2 tabs PO bid x 10 d AM OXICILLIN 03984662091 No Longer Active Kalpesh Dong MD Active LEVAQUIN 500 MG TABS 1 PO q day x 7 days LEVOFL OXACIN 42288952882 No Longer Active Shola MCGILL Active AMITRIPTYLINE HCL 25 MG TAB 1 tab by mouth daily 60 minutes before bedtime AMITRIPTYLINE HCL 31610357200 No Longer Active Shola MCGILL Active LORTAB 5 5-500 MG TABS 1/2 to 1 tablet by mouth go ry 6 hours as needed for pain HYDROCODONE-ACETAMINOPHEN 99436112457 No Longer Active Shola MCGILL Active CEPHALEXIN 500 MG TABS Take one by mouth four times daily, morning, noon, early evening and bedtime. CEPHALEXIN 09265978382 No Long er Active Hira Moser APRN Active TYLENOL/CODEINE #3 300-30 MG TAB 1-2 po q6hr PRN Pain ACETAMINOPHEN-CODEINE 05284783871 No Longer Active Edilberto Marino DO Active PRISTIQ 50 MG [id number] 1 po qd DESVENLAFAXI NE SUCCINATE 60115186006 No Longer Active Edilberto Marino DO Active PENICILLIN V POTASSIUM 500 MG TAB 1 four times a day 2 PENICILLIN V POTASSIUM 96737376354 No Longer Active Edilberto Marino DO Active DOXYCYCLINE HYCLATE 100 MG CAPS Take one (1) tablet by mouth twice a day DOXYCYCLINE HYCLATE 47976826607 No Longer Active Ronnie Galvan MD Active HYDROCODONE-ACETAMINOPHEN 5-325 MG TABS 1 po q 6hr PRN Pain 2011 HYDROCODONE-ACETAMINOPHEN 60169498896 No Longer Active Patri joan Perez RN Active BACTRIM DS 800-160 MG TAB 1 tab by mouth twice daily 2 TRIMETHOPRIM-SULFAMETHOXAZOLE 97919587178 No Longer Active Kalpesh Dong MD Active LORTAB 5 5-500 MG TABS 1/2 to 1 tablet by mouth go ry 4 hours as needed for pain HYDROCODONE-ACETAMINOPHEN 42175788994 No Longer Active Kalpesh Dong MD Active GENERESS FE 0.8-25 MG-MCG CHEW Take one by mouth daily NORETHIN-ETH ESTRADIOL-FE 76693326888 No Longer Active Kalpesh Dong MD Active HYDROCODONE-ACETAMINOPHEN 7.5-500 MG TABS 1-2 every 4 hours as needed HYDROCODONE-ACETAMINOPHEN 65589173031 No Longer Activ e Kalpesh Dong MD Active FERROUS SULFATE 325 (65 FE) MG TABS 1 tablet by mouth twice yung y FERROUS SULFATE 80771760472 No Longer Active Kalpesh Dong MD Active IBUPROFEN 600 MG TAB 1 po q6-8hr PRN IBUPROFEN 68899671158 No Longer Active Kalpesh Dong MD Active SPIRONOLACTONE 25 MG TAB 1 tablet by mouth daily 01/22 SPIRONOLACTONE 22078551288 No Longer Active Kalpesh Dong MD Acti ve HYDROCODONE-ACETAMINOPHEN 7.5-325 MG TABS 1 po QID PRN Pain 2011 HYDROCODONE-ACETAMINOPHEN 45521401836 No Longer Active Kalpesh Dong MD Active CLINDAMYCIN HCL 300 MG CAPS 1 po q6hr x 7 days CLINDAMYCIN HCL 61942009891 No Longer Active Edilberto Marino DO Active PREDNISONE 20 MG TAB 2 tabs daily for 4 days, 1 t ab daily for 4 days, 1/2 tab daily for 4 days PREDNISONE 01527552819 No Longer Active Edilberto Marino DO Active PERCOCET 5-325 MG TABS 1 tablet by mouth every 6 hours as ne eded for pain OXYCODONE-ACETAMINOPHEN 37278944300 No Longer Active Abdirahman Rios MD Active VITAMINS TABS Take one by mouth daily MV & MIN W/FE-FA TABS 04945346511 No Longer Active Abdirahman Rios MD Active LUIS 3-0.02 MG TABS 1 tablet by mouth daily as directed DROSPIRENONE-ETHINYL ESTRADIOL 45480164609 No Longer Active Abdirahman Rios MD Active LORATADINE 10 MG TABS 1 tablet by mouth daily L ORATADINE 44307195347 No Longer Active Kalpesh Dong MD Active HYDROCODONE-ACETAMINOPHEN 5-325 MG TABS 1 po q 6hr PRN Pain 2010 HYDROCODONE-ACETAMINOPHEN 96009519573 No Longer Active Edilberto Marino DO Active BACTRIM DS 800-160 MG TAB 1 tab by mouth twice daily 2 TRIMETHOPRIM-SULFAMETHOXAZOLE 40318055262 No Longer Active Abdirahman Rios MD Active 28-0.8 MG TABS Take one by mouth daily 09/20 VIT-FE FUMARATE-FA 03300552552 No Longer Active Abdirahman Rios MD Active CIPRO 500 MG TAB 1 tablet by mouth twice daily CIPROFLOXACIN HCL 04416285485 No Longer Active Abdirahman Rios MD Active BENADRYL 25 MG CAP 1 po q8hr PRN Congestion DIPHENHYDRAMINE HCL 80228639671 No Longer Active Abdirahman Rios MD Active ZOLOFT 50 MG TAB 1 po qd SERTRALINE HCL 053664 81043 No Longer Active Abdirahman Rios MD Active AMOXICILLIN 875 MG TABS 1 tab by mouth twice daily 201 08/09/13 AMOXICILLIN 21854830712 No Longer Active Abdirahman Rios MD Activ e AMOXICILLIN 875 MG TABS 1 tab by mouth twice daily 201 07/19/27 AMOXICILLIN 54264767222 No Longer Active Abdirahman Rios MD Activ e BACTRIM DS 800-160 MG TAB 2 tab by mouth twice daily 2 TRIMETHOPRIM-SULFAMETHOXAZOLE 69548190551 No Longer Active Abdirahman Rios MD Active KEFLEX 500 MG CAP 1 po tid x 10 days CEPHALEXIN 96461859485 No Longer Active Abdirahman Rios MD Active AMOXICILLIN 875 MG TABS 1 tab by mouth twice daily 201 07/18/07 AMOXICILLIN 60118063137 No Longer Active Abdirahman Rios MD Activ e BACTRIM DS 800-160 MG TAB 2 tab by mouth twice daily 2 BACTRIM DS 800-160 MG TAB 873233 TRIMETHOPRIM-SULFAMETHOXAZOLE Inactive ZOLOFT 50 MG TAB 1 po qd ZOLOFT 50 MG TAB 3129 41 SERTRALINE HCL Inactive BENADRYL 25 MG CAP 1 po q8hr PRN Congestion BENADRYL 25 MG CAP [id number] DIPHENHYDRAMINE HCL Inactive 28-0.8 MG TABS Take one by mouth daily 09/20 28-0.8 MG TABS VIT-FE FUMARATE-FA Inactive HYDROCODONE-ACETAMINOPHEN 5-325 MG TABS 1 po q 6hr PRN Pain 2010 HYDROCODONE-ACETAMINOPHEN 5-325 MG TABS 838524 HYDROCODONE-ACETAMINOPHEN Inactive LORATADINE 10 MG TABS 1 tablet by mouth daily LORATADINE 10 MG TABS 599053 LORATADINE Inactive LUIS 3-0.02 MG TABS 1 tablet by mouth daily as directed LUIS 3-0.02 MG TABS 363700 DROSPIRENONE-ETHINYL ESTRADIOL Inactive VITAMINS TABS Take one by mouth daily VITAMINS TABS MV & MIN W/FE-FA TABS Inactive PERCOCET 5-325 MG TABS 1 tablet by mouth every 6 hours as ne eded for pain PERCOCET 5-325 MG TABS 1667800 OXYCODONE-ACETAMIN OPHEN Inactive PREDNISONE 20 MG TAB 2 tabs daily for 4 days, 1 t ab daily for 4 days, 1/2 tab daily for 4 days PREDNISONE 20 MG TAB 977994 PREDNISON E Inactive CLINDAMYCIN HCL 300 MG CAPS 1 po q6hr x 7 days CLINDAMYCIN HCL 300 MG CAPS 652444 CLINDAMYCIN HCL Inactive HYDROCODONE-ACETAMINOPHEN 7.5-325 MG TABS 1 po QID PRN Pain 2011 HYDROCODONE-ACETAMINOPHEN 7.5-325 MG TABS 588064 HYDROCODONE-ACETAMINOPHEN Inactive SPIRONOLACTONE 25 MG TAB 1 tablet by mouth daily 01/22 SPIRONOLACTONE 25 MG TAB 326466 SPIRONOLACTONE Inactive IBUPROFEN 600 MG TAB 1 po q6-8hr PRN IBUPROFEN 600 MG TAB 368845 IBUPROFEN Inactive FERROUS SULFATE 325 (65 FE) MG TABS 1 tablet by mouth twice yung y FERROUS SULFATE 325 (65 FE) MG TABS 315660 FERROUS SULF ATE Inactive HYDROCODONE-ACETAMINOPHEN 7.5-500 MG TABS 1-2 every 4 hours as needed HYDROCODONE-ACETAMINOPHEN 7.5-500 MG TABS HYDROCODONE-ACETAMINOPHEN Inactive GENERESS FE 0.8-25 MG-MCG CHEW Take one by mouth daily GENERESS FE 0.8-25 MG-MCG CHEW [id number] NORETHIN-ETH ESTRADIOL-FE Inactive LORTAB 5 5-500 MG TABS 1/2 to 1 tablet by mouth go ry 4 hours as needed for pain LORTAB 5 5-500 MG TABS HYDROCODONE-A CETAMINOPHEN Inactive BACTRIM DS 800-160 MG TAB 1 tab by mouth twice daily 2 BACTRIM DS 800-160 MG TAB 565045 TRIMETHOPRIM-SULFAMETHOXAZOLE Inac tive HYDROCODONE-ACETAMINOPHEN 5-325 MG TABS 1 po q 6hr PRN Pain 2011 HYDROCODONE-ACETAMINOPHEN 5-325 MG TABS 622877 HYDROCODONE-ACETAMINOPHEN Inactive DOXYCYCLINE HYCLATE 100 MG CAPS Take one (1) tablet by mouth twice a day DOXYCYCLINE HYCLATE 100 MG CAPS 8868842 DOXYCYCLINE HYCLATE Inactive PENICILLIN V POTASSIUM 500 MG TAB 1 four times a day 2 PENICILLIN V POTASSIUM 500 MG TAB 070310 PENICILLIN V POTASSIUM Siri ctive PRISTIQ 50 MG [id number] 1 po qd PRISTIQ 50 MG [id number] DESVENLAFAXINE SUCCINATE Inactive TYLENOL/CODEINE #3 300-30 MG TAB 1-2 po q6hr PRN Pain TYLENOL/CODEINE #3 300-30 MG TAB 312921 ACETAMINOPHEN-CODEINE Inact krishna CEPHALEXIN 500 MG TABS Take one by mouth four times daily, morning, noon, early evening and bedtime. CEPHALEXIN 500 MG TABS 320759 CEPHALEXIN Inactive LORTAB 5 5-500 MG TABS 1/2 to 1 tablet by mouth go ry 6 hours as needed for pain LORTAB 5 5-500 MG TABS HYDROCODONE-A CETAMINOPHEN Inactive AMITRIPTYLINE HCL 25 MG TAB 1 tab by mouth daily 60 minutes before bedtime AMITRIPTYLINE HCL 25 MG TAB 539978 AMITRIPTYLINE HCL Inactive AMOXICILLIN 500 MG TABS 2 tabs PO bid x 10 d 7 AMOXICILLIN 500 MG TABS 241874 AMOXICILLIN Inactive IMPLANON 68 MG IMPL IMPLANTED IN LEFT ARM IMPLANON 68 MG IMPL ETONOGESTREL Inactive HYDROCODONE-ACETAMINOPHEN 5-325 MG TABS 1 PO tid PRN pain 5 HYDROCODONE-ACETAMINOPHEN 5-325 MG TABS 041995 HYDROCODONE-ACETAMIN OPHEN Inactive BACTRIM DS 800-160 MG TAB 1 tab by mouth twice daily 2 BACTRIM DS 800-160 MG TAB 125429 TRIMETHOPRIM-SULFAMETHOXAZOLE Inac tive CEPHALEXIN 500 MG CAPS 1 PO bid x 7 days CEPHALEXIN 500 MG CAPS 431769 CEPHALEXIN Inactive HYDROCODONE-ACETAMINOPHEN 5-325 MG TABS 1 tab by mouth every 6 hours as needed HYDROCODONE-ACETAMINOPHEN 5-325 MG TABS 593464 HYDROCODONE-ACETAMINOPHEN Inactive PROMETHAZINE-CODEINE 6.25-10 MG/5ML SYRP 1 tsp every 6 hrs prn c ough PROMETHAZINE-CODEINE 6.25-10 MG/5ML SYRP 588367 PROMETH AZINE-CODEINE Inactive IBUPROFEN 800 MG TAB 1 pill three times daily as needed for pain IBUPROFEN 800 MG TAB IBUPROFEN Inactive KEFLEX 500 MG CAP 1 tab po tid KEFLEX 500 MG CAP 606718 CEPHALEXIN Inactive HYDROCODONE-ACETAMINOPHEN 7.5-325 MG TABS 1 four times a day as needed for pain HYDROCODONE-ACETAMINOPHEN 7.5-325 MG TABS 364765 HYDROCODONE-ACETAMINOPHEN Inactive BACTRIM DS 800-160 MG TABS by mouth twice a day 11/05 BACTRIM DS 800-160 MG TABS 898586 SULFAMETHOXAZOLE-TRIMETHOPRIM Inactive IBUPROFEN 800 MG TABS 1 tid prn IBUPROFEN 800 MG TABS 656410 IBUPROFEN Inactive ENDOCET 10-325 MG TABS 1 q 6 hr prn ENDOC ET 10-325 MG TABS 3520251 OXYCODONE-ACETAMINOPHEN Inactive HYDROCODONE-ACETAMINOPHEN 7.5-325 MG TABS 1 by mouth e very 6 hours as needed for pain HYDROCODONE-ACETAMINOPHEN 7.5-325 MG TABS 453757 HYDROCODONE-ACETAMINOPHEN Inactive PERCOCET 7.5-325 MG TABS 1 PO q 8 hrs PRN pain PERCOCET 7.5-325 MG TABS 7137690 OXYCODONE-ACETAMINOPHEN Inactive LIDODERM 5 % PTCH One patch to painful area AR N. On for 12 hrs, off for 12 hrs. LIDODERM 5 % PTCH 4957178 LIDOCAINE Inactiv e PERCOCET 7.5-325 MG TABS 1 PO tid PRN pain PERCOCET 7.5- 325 MG TABS 6895922 OXYCODONE-ACETAMINOPHEN Inactive MOBIC 15 MG TABS 1 tab daily MOBIC 15 MG TABS 15 2695 MELOXICAM Inactive CYCLOBENZAPRINE HCL 10 MG TABS 1/2 - 1 tab PO tid PRN back p ain, muscle spasm CYCLOBENZAPRINE HCL 10 MG TABS 308583 CYCLOBENZA JOSEPH HCL Inactive LORATADINE 10 MG TABS 1 tablet by mouth daily LORATADINE 10 MG TABS 623393 LORATADINE Inactive HYDROCODONE-ACETAMINOPHEN 10-325 MG TABS 1 by mouth ev chaka 8 hours as needed for pain HYDROCODONE-ACETAMINOPHEN 10-325 MG TABS 699484 HYDROCODONE-ACETAMINOPHEN Inactive LC-5 LIDOCAINE 5 % CREA apply 1 time daily to affected area 2013 LC-5 LIDOCAINE 5 % CREA 4942858 LIDOCAINE (ANORECTAL) In active PERCOCET 5-325 MG TAB 1 every 6 hours as needed PERCOCET 5-325 MG TAB 5554235 OXYCODONE-ACETAMINOPHEN Inactive KEFLEX 500 MG CAP 1 po qid KEFLEX 500 MG CAP 30 9114 CEPHALEXIN Inactive PROAIR HFA 108 (90 BASE) MCG/ACT AERS 2 puff q 4-6 hrs PRN 01/24 PROAIR HFA 108 (90 BASE) MCG/ACT AERS ALBUTEROL SULFATE Inactive PERCOCET 10-325 MG ORAL TABS 1 every 4 hours as needed PERCOCET 10-325 MG ORAL TABS 3671055 OXYCODONE-ACETAMINOPHEN Inactiv e EMLA 2.5-2.5 % EXT CREA apply to skin lesion q 6 hours, prn 2014 EMLA 2.5-2.5 % EXT CREA 995437 LIDOCAINE-PRILOCAINE Siri ctive PERCOCET 10-325 MG TABS 1 tab by mouth every 6 hours , use sparingly for severe pain PERCOCET 10-325 MG TABS 1484868 OXYCODONE-ACETAMINOPHEN Inactive GLUCOPHAGE 500 MG ORAL TABS one by mouth 3 times a day GLUCOPHAGE 500 MG ORAL TABS 691817 METFORMIN HCL Inactive HYDROCODONE-ACETAMINOPHEN 5-325 MG TABS 1 po q6hr PRN pain 06/30 HYDROCODONE-ACETAMINOPHEN 5-325 MG TABS 817209 HYDROCOD ONE-ACETAMINOPHEN Inactive PERCOCET 5-325 MG TAB 1 tab po q 6 -8 hours, prn for severe pain PERCOCET 5-325 MG TAB [id number] OXYCODONE-ACETAMINOPHEN In active PERCOCET 5-325 MG ORAL TABS 1 every 6 hours as needed PERCOCET 5-325 MG ORAL TABS [id number] OXYCODONE-ACETAMINOPHEN Inactive DICLOFENAC SODIUM 50 MG TBEC 1 tablet by mouth four times da tom PRN Pain DICLOFENAC SODIUM 50 MG TBEC [id number] DICLOFENAC S ODIUM Inactive AUGMENTIN 500-125 MG ORAL TABS 1 by mouth twice a day AUGMENTIN 500-125 MG ORAL TABS [id number] AMOXICILLIN-POT CLAVULANATE I nactive HYDROCODONE-ACETAMINOPHEN 5-325 MG TABS 1 po q6hr PRN Pain 03/09 HYDROCODONE-ACETAMINOPHEN 5-325 MG TABS [id number] HYDROCOD ONE-ACETAMINOPHEN Inactive CYCLOBENZAPRINE HCL 10 MG TABS 1 tablet by mouth three times daily as needed for muscle spasm/pain CYCLOBENZAPRINE HCL 10 MG TABS [id number] CYCLOBENZAPRINE HCL Inactive SPRINTEC 28 0.25-35 MG-MCG TABS 1 pill by mouth daily for bi rth control SPRINTEC 28 0.25-35 MG-MCG TABS [id number] NORGESTIMATE-ETH ESTRADIOL Inactive PERCOCET 5-325 MG TAB 1 tab po q 6 hours, prn severe pain PERCOCET 5-325 MG TAB [id number] OXYCODONE-ACETAMINOPHEN Inactive IBUPROFEN 600 MG ORAL TABS 1 by mouth twice a day 2014 IBUPROFEN 600 MG ORAL TABS 547352 IBUPROFEN Inactive CYMBALTA 30 MG CPEP 1 cap by mouth daily CYMBALTA 30 MG CPEP [id number] DULOXETINE HCL Inactive HYDROCODONE-ACETAMINOPHEN 5-325 MG TABS 1 po q6hr PRN Pain 04/09 HYDROCODONE-ACETAMINOPHEN 5-325 MG TABS 947400 HYDROCOD ONE-ACETAMINOPHEN Inactive TRAZODONE HCL 100 MG TAB 0.5 to 1 po qHS PRN Insomnia TRAZODONE HCL 100 MG TAB 495750 TRAZODONE HCL Inactive ALPRAZOLAM 0.5 MG TABS 1 po BID PRN Anxiety ALPRAZOLAM 0.5 MG TABS 197121 ALPRAZOLAM Inactive DIZBGTPHVX-[id number]-LEZAGEHA 50-325-40 MG ORAL CAPS 1-2 po TID AR N Headache [id number] 50-325-40 MG ORAL CAPS 2 [id number] Inactive HYDROCODONE-ACETAMINOPHEN 5-325 MG TABS 1 po TID PRN Pain 9 HYDROCODONE-ACETAMINOPHEN 5-325 MG TABS [id number] HYDROCODONE-ACETAMIN OPHEN Inactive PERCOCET 10-325 MG TABS 1 tablet every 8 hours as needed for antonia n PERCOCET 10-325 MG TABS [id number] OXYCODONE-ACETAMINOPHEN Inactive ONDANSETRON 4 MG TBDP 1 q4h PRN nausea ON DANSETRON 4 MG TBDP [id number] ONDANSETRON Inactive VIIBRYD 10 & 20 & 40 MG KIT 1 po qd as directed 07/24 VIIBRYD 10 & 20 & 40 MG KIT VILAZODONE HCL Inactive DICLOFENAC SODIUM 50 MG TBEC 1 tablet by mouth four times da tom PRN Pain DICLOFENAC SODIUM 50 MG TBEC [id number] DICLOFENAC S ODIUM Inactive PERCOCET 10-325 MG ORAL TABS one every 6 hours prn pain PERCOCET 10-325 MG ORAL TABS [id number] OXYCODONE-ACETAMINOPHEN Inactiv e PERCOCET 10-325 MG ORAL TABS take 1 tab by mouth q 4hours as needed for pain PERCOCET 10-325 MG ORAL TABS [id number] OXYCODONE-ACETAMINOPHEN Inactive FLONASE ALLERGY RELIEF 50 MCG/ACT NASAL SUSP One spray in each nostril twice a day. FLONASE ALLERGY RELIEF 50 MCG/ACT NASAL S LONG-TERM [id number] FLUTICASONE PROPIONATE Inactive AUGMENTIN 875-125 MG TAB 1 tab by mouth twice daily with food 20 23/05/16 AUGMENTIN 875-125 MG TAB [id number] AMOXICILLIN-POT [place] Inactive HYDROCODONE-ACETAMINOPHEN 5-325 MG TABS 1 tab by mouth every 6 hours as needed for pain HYDROCODONE-ACETAMINOPHEN 5-325 MG TABS 8 80561 HYDROCODONE-ACETAMINOPHEN Inactive PERCOCET 10-325 MG TABS 1 tablet every 8 hours as needed for antonia n PERCOCET 10-325 MG TABS [id number] OXYCODONE-ACETAMINOPHEN Inactive LC-4 LIDOCAINE 4 % EXT CREA apply q 6 hours, prn 08/03 LC-4 LIDOCAINE 4 % EXT CREA [id number] LIDOCAINE Inactive PROMETHAZINE HCL 25 MG TABS 1 four times a day as needed for nausea/vomiting PROMETHAZINE HCL 25 MG TABS 314348 PROMETHAZINE HCL Inactive AMOXICILLIN 875 MG TABS 1 tab by mouth twice daily 201 07/18/07 AMOXICILLIN 875 MG TABS 677477 AMOXICILLIN Inactive KEFLEX 500 MG CAP 1 po tid x 10 days KEFLEX 500 MG CAP 968511 CEPHALEXIN Inactive AMOXICILLIN 875 MG TABS 1 tab by mouth twice daily 201 07/19/27 AMOXICILLIN 875 MG TABS 434515 AMOXICILLIN Inactive AMOXICILLIN 875 MG TABS 1 tab by mouth twice daily 201 08/09/13 AMOXICILLIN 875 MG TABS 258663 AMOXICILLIN Inactive CIPRO 500 MG TAB 1 tablet by mouth twice daily CIPRO 500 MG TAB 709525 CIPROFLOXACIN HCL Inactive BACTRIM DS 800-160 MG TAB 1 tab by mouth twice daily 2 BACTRIM DS 800-160 MG TAB 516508 TRIMETHOPRIM-SULFAMETHOXAZOLE Inac tive LEVAQUIN 500 MG TABS 1 PO q day x 7 days LEVAQUIN 500 MG TABS 754524 LEVOFLOXACIN Inactive CLINDAMYCIN HCL 300 MG CAPS 1 po QID x 7 days CLINDAMYCIN HCL 300 MG CAPS 280766 CLINDAMYCIN HCL Inactive AUGMENTIN 875-125 MG TAB 1 tab by mouth twice daily with food 20 22/05/07 AUGMENTIN 875-125 MG TAB 253631 AMOXICILLIN-POT [place] Inactive DIFLUCAN 150 MG TAB 1 qODay x 2 doses DIFLUCAN 150 MG TAB 068737 FLUCONAZOLE Inactive PREDNISONE 20 MG TAB 2 tabs daily for 3 days, 1 t ab daily for 3 days, 1/2 tab daily for 2 days PREDNISONE 20 MG TAB 179476 PREDNISON E Inactive AUGMENTIN 875-125 MG TAB 1 tab by mouth twice daily with food 21/10/13 AUGMENTIN 875-125 MG TAB 905858 AMOXICILLIN-POT [place] Inactive HYDROCODONE-ACETAMINOPHEN 5-325 MG TABS 1 tab by mouth every 6 hours as needed PRN Pain HYDROCODONE-ACETAMINOPHEN 5-325 MG TABS 8 74259 HYDROCODONE-ACETAMINOPHEN Inactive PROMETHAZINE HCL 25 MG TABS 1 four times a day as needed for nausea/vomiting PROMETHAZINE HCL 25 MG TABS 762522 PROMETHAZINE HCL Inactive Advance Directives Directive Description Start Date PERMISSION TO SHARE Immunizations Vaccine Administration Date Value Standard Alf cription Seasonal influenza vaccine, injectable, containing preservative, for > 3 years old (Afluria, FluLaval, Fluzone, Fluvirin, Fluarix, Agriflu(>= 18 yo)) Fluzone (>3 yrs.) [[id number]] Influenza, seasonal, inject able Seasonal influenza vaccine, injectable, preservative free, for > 3 years old (Afluria, FluLaval, Fluzone, Fluvirin, Fluarix, Agriflu(>= 18 yo)) Fluzone preservative free (>3 yrs.) [[id number]] Influenza, seasonal, injectable, preservative free Seasonal influenza vaccine, injectable, containing preservative, for > 3 years old (Afluria, FluLaval, Fluzone, Fluvirin, Fluarix, Agriflu(>= 18 yo)) Fluzone (>3 yrs.) [[id number]] Influenza, seasonal, inject able Seasonal influenza vaccine, injectable, containing preservative, for > 3 years old (Afluria, FluLaval, Fluzone, Fluvirin, Fluarix, Agriflu(>= 18 yo)) Fluzone (>3 yrs.) [[id number]] Influenza, seasonal, inject able dT (Diphtheria and [...] pressure, diastolic - 8462-4 94 mm[Hg] BP ribeior blood pressure, systolic - 8480-6 151 mm[Hg] [...] pressure, diastolic - 8462-4 86 mm[Hg] BP riberio blood pressure, systolic - 8480-6 134 mm[Hg] [...] Panel - Chemistry sodium, serum 142 mmol/L 226-661 7875/05/12 potassium, serum 4.8 mmol/L 3.5-5.2 chloride, serum [...] ... - Chemistry sodium, serum 137 mmol/L 124-473 1962/02/24 carbon dioxide, venous blood 26.3 mmol/L 21.0-32 [...] Panel - Chemistry cholesterol, serum 181 mg/dL 400-755 2721/09/01 triglyceride, serum, fasting 341 mg/dL 30-200 HDL cholesterol, serum 22 mg/dL 32-96 LDL cholesterol, serum 91 mg/dL 0-130 cholesterol, serum 165 mg/dL 197-003 8064/05/12 triglyceride, serum, fasting 524 mg/dL 30-200 HDL [...] negative Encounters Code Encounter Date Provider Facility CPT-40437 Level 4 Est. Patient 16:38:26 PRODUCTION FLOATER Abdirahman Rios MD [facility] CPT-93324 Level 3 Est. Patient 05:31:41 PRODUCTION FLOATER Kalpesh goins MD [facility] CPT-86074 Level 3 Est. Patient 11:22:02 PRODUCTION FLOATER [facility]ira [facility]iz [facility] CPT-74552 Level 3 Est. Patient 21:00:18 PRODUCTION FLOATER [facility] CPT-22362 Level 3 Est. Patient 14:15:00 PRODUCTION FLOATER Kalpesh goins MD [facility] CPT-29209 Level 2 Est. Patient 19:57:52 PRODUCTION FLOATER [facility] CPT-29031 Level 3 Est. Patient 16:58:40 PRODUCTION FLOATER Bj funes MD [facility] CPT-20762 Level 3 Est. Patient 08:51:33 CDT Kalpesh goins MD [facility] CPT-97725 Level 4 Est. Patient 14:14:53 CDT Abdirahman Rios MD [facility] CPT-45941 Level 3 Est. Patient 15:47:40 CDT Kalpesh goins MD [facility] CPT-82755 Level 3 Est. Patient 10:57:26 CDT Abdirahman Rios MD [facility]-40746 Level 3 Est. Patient 14:29:53 CDT Abhinav Galvan MD [facility] CPT-89463 Level 2 Est. Patient 16:33:01 CDT Kalpesh goins MD [facility] CPT-52009 Level 4 Est. Patient 16:44:56 CDT Abdirahman Rios MD [facility] CPT-08742 Level 2 Est. Patient 07:49:32 CDT Kalpesh goins MD [facility] CPT-46637 Level 3 New Patient 15:47:11 PRODUCTION FLOATER Bj huber MD [facility]-78599 Level 4 Est. Patient 14:37:38 PRODUCTION FLOATER Abdirahman Rios MD [facility] CPT-64316 Level 2 Est. Patient 13:32:17 PRODUCTION FLOATER Kalpesh goins MD [facility] CPT-28183 Level 3 Est. Patient 17:32:57 PRODUCTION FLOATER Edilberto tiwari [facility] CPT-38645 Level 3 Est. Patient 17:22:33 PRODUCTION FLOATER Edilberto tiwari [facility] CPT-51933 Level 2 Est. Patient 16:57:09 PRODUCTION FLOATER Kalpesh goins MD [facility]-62278 Level 3 Est. Patient 14:03:08 PRODUCTION FLOATER Abdirahman Rios MD [facility] CPT-60614 Level 3 Est. Patient 18:12:34 CDT Shola Wright [facility] CPT-00119 Level 3 Est. Patient 19:34:46 CDT Shola Wright [facility] CPT-51716 Level 3 Est. Patient 14:19:37 CDT Abdirahman Rios MD [facility] CPT-48533 Level 3 Est. Patient 14:11:58 CDT Kalpesh goins MD [facility]-89222 Level 3 Est. Patient 16:50:00 CDT Michelle BRADFORDP [facility] CPT-43123 Level 3 Est. Patient 17:11:32 PRODUCTION FLOATER Brandie bates MD PhD [facility]-00708 Level 3 Est. Patient 16:31:47 PRODUCTION FLOATER Shola Wright [facility] CPT-60783 Level 3 Est. Patient 17:51:10 PRODUCTION FLOATER Abhinav Galvan MD [facility]-27963 Level 4 Est. Patient 12:54:56 PRODUCTION FLOATER Kalpesh goins MD [facility]-94444 Level 4 Est. Patient 12:53:56 PRODUCTION FLOATER Kalpesh goins MD [facility]-78919 Level 3 Est. Patient 17:56:58 CDT Shola Wright [facility] CPT-04466 Level 3 Est. Patient 14:26:20 CDT Janak butcher [facility] CPT-38962 Level 3 Est. Patient 09:38:41 CDT Shola Wright [facility] CPT-82097 Level 3 Est. Patient 14:45:26 CDT Edilberto tiwari [facility] CPT-55616 Level 3 Est. Patient 10:51:33 CDT [facility]-50864 Level 3 Est. Patient 11:57:55 PRODUCTION FLOATER Shola Wright [facility] CPT-86152 Level 3 Est. Patient 09:53:33 PRODUCTION FLOATER Edilberto tiwari [facility] CPT-22157 Level 3 Est. Patient 14:42:54 PRODUCTION FLOATER Abhinav Galvan MD [facility] CPT-34882 Level 3 Est. Patient 15:10:02 CDT Janak Stevenamira MCGILL [facility]-65122 Level 3 Est. Patient 15:20:20 CDT Theo dennis MD [facility] CPT-71333 Level 2 Est. Patient 14:08:57 CDT Kalpesh goins MD [facility] CPT-67547 Level 3 Est. Patient 13:56:19 CDT Abdirahman Rios MD [facility] CPT-41281 Level 3 Est. Patient 13:59:37 CDT Abdirahman Rios MD [facility] CPT-12095 Level 2 Est. Patient 14:44:59 CDT Kalpesh goins MD [facility] CPT-59175 Level 3 Est. Patient 06:06:23 CDT Edilberto tiwari DO [facility] CPT-56168 Level 3 Est. Patient 15:23:54 CDT Abdirahman Rios MD [facility] CPT-21856 Level 3 Est. Patient 15:43:49 CDT Abdirahman Rios MD [facility] CPT-07346 Level 3 Est. Patient 12:46:47 PRODUCTION FLOATER Abdirahman Rios MD [facility] CPT-13920 Level 3 Est. Patient 08:13:35 PRODUCTION FLOATER Abdirahman Rios MD [facility] CPT-90125 Level 2 Est. Patient 09:36:42 PRODUCTION FLOATER Abdirahman Rios MD [facility] CPT-34591 Level 3 Est. Patient 10:56:43 CDT Abdirahman Rios MD [facility] CPT-19547 Level 3 Est. Patient 18:24:52 CDT Abdirahman Rios MD [facility] CPT-62981 Level 3 Est. Patient 13:27:22 CDT Abdirahman Rios MD [facility] Procedures Code Procedure Name Date Entry Date Standard Desc ription CPT-13828 Postop F/U Visit 17:09:41 PRODUCTION FLOATER CPT-00515 Postop F/U Visit 14:08:43 PRODUCTION FLOATER CPT-59874 Postop F/U Visit 15:18:16 PRODUCTION FLOATER CPT-34800 Postop F/U Visit 15:03:49 PRODUCTION FLOATER CPT-55689 Postop F/U Visit 14:45:23 PRODUCTION FLOATER CPT-21994 Postop F/U Visit 14:11:03 PRODUCTION FLOATER CPT-09508 Postop F/U Visit 18:21:21 PRODUCTION FLOATER CPT-95233 Postop F/U Visit 15:57:12 PRODUCTION FLOATER CPT-83213 Bladder Instillation 16:58:41 PRODUCTION FLOATER 6 CPT-30510 Fluzone Quadrivalent Intramuscular Suspe nsion 0.5 ML 15:20:56 PRODUCTION FLOATER CPT-24905 Immunization Single Admin 15:20:56 PRODUCTION FLOATER 2014 CPT-16020 Excis pilonidal cyst simple 08:51:34 CDT 20 22/04/20 CPT-20261 Venipuncture Draw Fee 14:27:29 CDT CPT-70295 Postop F/U Visit 15:27:43 CDT CPT-09063 Postop F/U Visit 14:40:59 CDT CPT-24650 Postop F/U Visit 15:02:46 CDT CPT-35055 Postop F/U Visit 11:29:00 PRODUCTION FLOATER CPT-J0696 Rocephin 1000 mg (Ceftriaxone) 17:22:33 PRODUCTION FLOATER CPT-43315 Postop F/U Visit 18:41:07 PRODUCTION FLOATER CPT-79307 Postop F/U Visit 08:19:08 PRODUCTION FLOATER CPT-87546 Immunization Single Admin 16:41:53 CDT 2013 CPT-25375 Fluzone Quadrivalent Intramuscular Suspe nsion 0.5 ML 16:41:53 CDT CPT-OV Office Visit 16:39:18 CDT CPT-OV Office Visit 16:16:36 CDT CPT-OV Office Visit 15:34:48 CDT CPT-22644 Postop F/U Visit 14:50:12 CDT CPT-86461 Postop F/U Visit 14:41:10 CDT CPT-25060 Venipuncture Draw Fee 11:38:04 PRODUCTION FLOATER CPT-85242 Postop F/U Visit 19:02:59 PRODUCTION FLOATER CPT-64028 Postop F/U Visit 12:04:54 PRODUCTION FLOATER CPT-73630 Administration single or combination vac cine inc oral 15:56:43 CDT CPT-05692 Influenza split virus > age 3 15:56:43 CDT CPT-08998 Hand comp min 3V 14:25:19 CDT CPT-16004 Postop F/U Visit 21:40:51 CDT CPT-89371 Postop F/U Visit 10:58:43 CDT CPT-35942 Administration single or combination vac cine inc oral 12:33:54 PRODUCTION FLOATER CPT-12969 Influenza Preservative Free split virus >age 3 12:33:54 PRODUCTION FLOATER CPT-50412 Administration single or combination vac cine inc oral 09:30:51 CDT CPT-07566 Influenza split virus > age 3 09:30:51 CDT CPT-26854 Postop F/U Visit 15:14:53 CDT CPT-40204 Postop F/U Visit 13:50:14 CDT CPT-20451 Postop F/U Visit 13:34:52 CDT CPT-OV Office Visit 16:55:03 CDT CPT-30836 Pollard of cervix w bx ECC 13:32:50 CDT 10/19 CPT-J1885 Toradol 60 mg (Ketorolac) 15:31:59 CDT 2011 CPT-J1885 Toradol 60 mg (Ketorolac) 15:23:54 CDT 2011 CPT-66104 Visit 11:34:37 PRODUCTION FLOATER CPT-56742 Visit 10:52:39 PRODUCTION FLOATER CPT-38618 Visit 10:12:02 PRODUCTION FLOATER CPT-83295 Visit 11:22:43 PRODUCTION FLOATER CPT-78045 Visit 11:24:12 PRODUCTION FLOATER CPT-76049 Visit 10:47:05 PRODUCTION FLOATER CPT-OV Office Visit 10:26:16 PRODUCTION FLOATER CPT-OV Office Visit 15:34:31 PRODUCTION FLOATER CPT-26456 Visit 10:42:08 PRODUCTION FLOATER CPT-02398 Visit 10:52:45 PRODUCTION FLOATER CPT-000 Give Appropriate Flu Vaccine 16:56:41 CDT 2 CPT-35406 Administration single or combination vac cine inc oral 10:33:21 CDT CPT-82256 Influenza split virus > age 3 10:33:21 CDT CPT-93016 Visit 13:23:09 CDT CPT-90855 Visit 18:24:52 CDT CPT-70584 Sono OB comp > 14 weeks 12:07:49 CDT 04/07
--- OUTSIDE RECORDS SUMMARY | 2020-01-18 16:40 | XMS REPORT | Clinical Summary ---
Author Author Avery, Jeri Cabrera [facility] Address Unknown Phone Unavailable Allergies, Adverse [...] Annotate , INCIDENTAL PROBLEM V22.2 Resolved 07/20 Abdriahman Rios MD state, incidental LARGE FOR GESTATIONAL [...] unspecified SINUSITIS, ACUTE 461.9 Active Rajni Alcazar [employer] Acute sinusitis, unspecified BACK PAIN 724.5 Resolved [...] Abdirahman sanchez MD URETHRITIS ICD-597.80 Inactive Good melcohr MD ABSCESS ICD-682.9 Jose M collier MD [...] subcutaneous tis braden, NEC ICD-V58.77 Inactive Good Jluian MD Open wound of buttock, complicated ICD-877.1 [...] 6 hours as needed for pain HYDROCODONE-ACETAMINOPHEN 25224923606 No Longer Active Kalpesh Dong MD Active PERCOCET 10-325 MG ORAL TABS 1 every 4 hous as needed OXYCODONE-ACETAMINOPHEN 95831048784 Active Kalpesh Dong MD Active GLYDO 2 % EXT GEL apply to painful areas as needed LIDOCAINE HCL 81346809111 Active Kalpesh Dong MD Active LC-4 LIDOCAINE 4 % EXT CREA apply to painful area every 12 h ours or as needed LIDOCAINE 06009546986 Active Kalpesh Dong MD Active AUGMENTIN 875-125 MG TAB 1 tab by mouth twice daily with food 20 23/05/16 AMOXICILLIN-POT CLAVULANATE 32588751008 No Longer Active Lizeth hi [employer] 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 FLUTICASONE PROPIONATE 60194994058 No Longer Ac tive Rajni [employer] Active PERCOCET 10-325 MG ORAL TABS take 1 tab by mouth q 4hours as needed for pain OXYCODONE-ACETAMINOPHEN 21436961872 No Longer Active Rajni [employer] Active PERCOCET 10-325 MG ORAL TABS one every 6 hours prn pain OXYCODONE-ACETAMINOPHEN 61678848284 No Longer Active Rajni [employer] Active IBUPROFEN 800 MG TABS 1 tab po tid, with food I BUPROFEN 87094854513 Active Jillina Joyzell [employer] Active PERCOCET 10-325 MG TABS 1 tablet every 8 hours as needed for pain 2 OXYCODONE-ACETAMINOPHEN 93554213026 Active Rajni [employer] Active DICLOFENAC SODIUM 50 MG TBEC 1 tablet by mouth four times da tom PRN Pain DICLOFENAC SODIUM 30483814936 No Longer Active Rajni [employer] Active VIIBRYD 10 & 20 & 40 MG KIT 1 po qd as directed 07/24 VILAZODONE HCL 35066640739 No Longer Active Rajni [employer] Active ONDANSETRON 4 MG TBDP 1 q4h PRN nausea ONDANSET KELBY 26579072607 No Longer Active Rajni [employer] Active PERCOCET 10-325 MG TABS 1 tablet every 8 hours as needed for antonia n OXYCODONE-ACETAMINOPHEN 75194425248 No Longer Active Rajni cox [employer] Active HYDROCODONE-ACETAMINOPHEN 5-325 MG TABS 1 po TID PRN Pain 9 HYDROCODONE-ACETAMINOPHEN 59608576411 No Longer Active Abdirahman Rios MD Active LC-4 LIDOCAINE 4 % EXT CREA apply q 6 hours, prn LIDOCAINE 73158495798 Active Hira Joyjanee [employer] Active UJREIRNWZU-KAL-TIAOKFFN 50-325-40 MG ORAL CAPS 1-2 po TID UT N Headache EGSGDRRUCL-OEIAHYE-ULXYNXXU 04616426342 No Longer Act krishna Kalpesh Dong MD Active ALPRAZOLAM 0.5 MG TABS 1 po BID PRN Anxiety ALP RAZOLAM 20805872257 No Longer Active Kalpesh Dong MD Active TRAZODONE HCL 100 MG TAB 0.5 to 1 po qHS PRN Insomnia TRAZODONE HCL 65848985626 No Longer Active Kalpesh Dong MD Activ e HYDROCODONE-ACETAMINOPHEN 5-325 MG TABS 1 po q6hr PRN Pain 04/09 HYDROCODONE-ACETAMINOPHEN 55789551070 No Longer Active Kalepsh Dong MD Active CYMBALTA 30 MG CPEP 1 cap by mouth daily DULOXE CLEO HCL 91927339701 No Longer Active Abdirahman Rios MD Active IBUPROFEN 600 MG ORAL TABS 1 by mouth twice a day 2014 IBUPROFEN 65329485862 No Longer Active Abdirahman Rios MD Activ e PERCOCET 5-325 MG TAB 1 tab po q 6 hours, prn severe pain 1 OXYCODONE-ACETAMINOPHEN 37589673758 No Longer Active Abdirahman Rios MD Active SPRINTEC 28 0.25-35 MG-MCG TABS 1 pill by mouth daily for bi rth control NORGESTIMATE-ETH ESTRADIOL 52212902713 No Longer Acti ve Hira Moser [employer] Active CYCLOBENZAPRINE HCL 10 MG TABS 1 tablet by mouth three times daily as needed for muscle spasm/pain CYCLOBENZAPRINE HCL 73806051911 No Longer Active Hira Moser [employer] Active HYDROCODONE-ACETAMINOPHEN 5-325 MG TABS 1 po q6hr PRN Pain 03/09 HYDROCODONE-ACETAMINOPHEN 57432436201 No Longer Active Matthewllina Karmen l [employer] Active AUGMENTIN 500-125 MG ORAL TABS 1 by mouth twice a day AMOXICILLIN-POT CLAVULANATE 02047410563 No Longer Active Matthewllina Karmenl [employer] Active DICLOFENAC SODIUM 50 MG TBEC 1 tablet by mouth four times da tom PRN Pain DICLOFENAC SODIUM 69262216207 No Longer Active Karenin a Shanti [employer] Active PROMETHAZINE HCL 25 MG TABS 1 four times a day as needed for nausea/vomiting PROMETHAZINE HCL 49607146636 No Longer Active Abdirahman Rios MD Active HYDROCODONE-ACETAMINOPHEN 5-325 MG TABS 1 tab by mouth every 6 hours as needed PRN Pain HYDROCODONE-ACETAMINOPHEN 83615326925 No Longer Active Abdirahman Riso MD Active GEMFIBROZIL 600 MG TABS 1 po BID GEMFIBROZIL 75148689 005 Active Abdirahman Rios MD Active PERCOCET 5-325 MG ORAL TABS 1 every 6 hours as needed OXYCODONE-ACETAMINOPHEN 93102202564 No Longer Active Abdirahman Rios MD Active PERCOCET 5-325 MG TAB 1 tab po q 6 -8 hours, prn for severe pain OXYCODONE-ACETAMINOPHEN 52862424435 No Longer Active Abdirahman Rios MD Active HYDROCODONE-ACETAMINOPHEN 5-325 MG TABS 1 po q6hr PRN pain 06/30 HYDROCODONE-ACETAMINOPHEN 29391066788 No Longer Active Hira roman [employer] Active GLUCOPHAGE 500 MG ORAL TABS one by mouth 3 times a day METFORMIN HCL 31661548424 No Longer Active Karenina Shanti [employer] Ac tive PERCOCET 10-325 MG TABS 1 tab by mouth every 6 hours , use sparingly for severe pain OXYCODONE-ACETAMINOPHEN 55071651254 No Longer A ctive Abdirahman Rios MD Active EMLA 2.5-2.5 % EXT CREA apply to skin lesion q 6 hours, prn 2014 LIDOCAINE-PRILOCAINE 21785964295 No Longer Active Abdirahman Rios MD Active PERCOCET 10-325 MG ORAL TABS 1 every 4 hours as needed OXYCODONE-ACETAMINOPHEN 93815130710 No Longer Active Abdirahman Rios MD Active AUGMENTIN 875-125 MG TAB 1 tab by mouth twice daily with food 20 21/10/13 AMOXICILLIN-POT CLAVULANATE 42960002325 No Longer Active Ursula Moser APRN Active PROAIR HFA 108 (90 BASE) MCG/ACT AERS 2 puff q 4-6 hrs PRN 01/24 ALBUTEROL SULFATE 38293586407 No Longer Active Kalpesh Dong MD Active PREDNISONE 20 MG TAB 2 tabs daily for 3 days, 1 t ab daily for 3 days, 1/2 tab daily for 2 days PREDNISONE 64507733251 No Longer Active Abdirahman Rios MD Active KEFLEX 500 MG CAP 1 po qid CEPHALEXIN 866461458 20 No Longer Active Kalpesh Dong MD Active PERCOCET 5-325 MG TAB 1 every 6 hours as needed OXYCODONE-ACETAMINOPHEN 18541991879 No Longer Active Shola MCGILL Active LC-5 LIDOCAINE 5 % CREA apply 1 time daily to affected area 2013 LIDOCAINE (ANORECTAL) 37670370742 No Longer Active Hira muniz APRN Active HYDROCODONE-ACETAMINOPHEN 10-325 MG TABS 1 by mouth ev chaka 8 hours as needed for pain HYDROCODONE-ACETAMINOPHEN 51289959147 No Longer Active Jillina Frazell [employer] Active LORATADINE 10 MG TABS 1 tablet by mouth daily L ORATADINE 28533879648 No Longer Active Jillina Frazell [employer] Active DIFLUCAN 150 MG TAB 1 qODay x 2 doses FLUCONAZO LE 34204142086 No Longer Active Jillina Frazell [employer] Active CYCLOBENZAPRINE HCL 10 MG TABS 1/2 - 1 tab PO tid PRN back p ain, muscle spasm CYCLOBENZAPRINE HCL 41490491054 No Longer Active Karen siri Frazell [employer] Active AUGMENTIN 875-125 MG TAB 1 tab by mouth twice daily with food 20 22/05/07 AMOXICILLIN-POT CLAVULANATE 36177060341 No Longer Active Loida Rios MD Active MOBIC 15 MG TABS 1 tab daily MELOXICAM 601531159 14 No Longer Active Abdirahman Rios MD Active PERCOCET 7.5-325 MG TABS 1 PO tid PRN pain OXYCODONE-ACETAMINOPHEN 61589174150 No Longer Active Abdirahman Rios MD Active LIDODERM 5 % PTCH One patch to painful area [place]. On for 12 hrs, off for 12 hrs. LIDOCAINE 71636155318 No Longer Active Abdirahman Rios MD Active PERCOCET 7.5-325 MG TABS 1 PO q 8 hrs PRN pain OXYCODONE-ACETAMINOPHEN 78818163268 No Longer Active Shola MCGILL Active HYDROCODONE-ACETAMINOPHEN 7.5-325 MG TABS 1 by mouth e very 6 hours as needed for pain HYDROCODONE-ACETAMINOPHEN 11064899326 No Longer Active Good Julian MD Active CLINDAMYCIN HCL 300 MG CAPS 1 po QID x 7 days CLINDAMYCIN HCL 53584104883 No Longer Active Abdirahman Rios MD Activ e BACTRIM DS 800-160 MG TABS 1 po BID x 7 days 5 SULFAMETHOXAZOLE-TRIMETHOPRIM 51092899381 No Longer Active Abdirahman Rios MD Active ENDOCET 10-325 MG TABS 1 q 6 hr prn OXYCODONE-ACETAMINOPHEN 38620412452 No Longer Active Abdirahman Rios MD Active IBUPROFEN 800 MG TABS 1 tid prn IBUPROFEN 547657 95186 No Longer Active Abdirahman Rios MD Active BACTRIM DS 800-160 MG TABS by mouth twice a day 11/05 SULFAMETHOXAZOLE-TRIMETHOPRIM 88772160033 No Longer Active Good Julian MD Active HYDROCODONE-ACETAMINOPHEN 7.5-325 MG TABS 1 four times a day as needed for pain HYDROCODONE-ACETAMINOPHEN 49863553671 No Longer Activ e Good Julian MD Active KEFLEX 500 MG CAP 1 tab po tid CEPHALEXIN 815684 98319 No Longer Active Hira Moser APRN Active IBUPROFEN 800 MG TAB 1 pill three times daily as needed for pain IBUPROFEN 45843872784 No Longer Active Kalpesh Dong MD Active PROMETHAZINE-CODEINE 6.25-10 MG/5ML SYRP 1 tsp every 6 hrs prn c ough PROMETHAZINE-CODEINE 76231351665 No Longer Active Kalpesh Carr Active HYDROCODONE-ACETAMINOPHEN 5-325 MG TABS 1 tab by mouth every 6 hours as needed HYDROCODONE-ACETAMINOPHEN 28708147634 No Longer Activ e Shola MCGILL Active CEPHALEXIN 500 MG CAPS 1 PO bid x 7 days CEPHAL EXIN 32636021775 No Longer Active Shola MCGILL Active BACTRIM DS 800-160 MG TAB 1 tab by mouth twice daily 2 TRIMETHOPRIM-SULFAMETHOXAZOLE 21602994305 No Longer Active Kalpesh Dong MD Active HYDROCODONE-ACETAMINOPHEN 5-325 MG TABS 1 PO tid PRN pain 5 HYDROCODONE-ACETAMINOPHEN 82901556993 No Longer Active Abhinav Galvan MD Active IMPLANON 68 MG IMPL IMPLANTED IN LEFT ARM ETONO GESTREL 47028957001 No Longer Active Hira Moser APRN Active AMOXICILLIN 500 MG TABS 2 tabs PO bid x 10 d AM OXICILLIN 47657060303 No Longer Active Kalpesh Dong MD Active LEVAQUIN 500 MG TABS 1 PO q day x 7 days LEVOFL OXACIN 21727558394 No Longer Active Shola MCGILL Active AMITRIPTYLINE HCL 25 MG TAB 1 tab by mouth daily 60 minutes before bedtime AMITRIPTYLINE HCL 87744143670 No Longer Active Shola MCGILL Active LORTAB 5 5-500 MG TABS 1/2 to 1 tablet by mouth go ry 6 hours as needed for pain HYDROCODONE-ACETAMINOPHEN 13346633366 No Longer Active Shola MCGILL Active CEPHALEXIN 500 MG TABS Take one by mouth four times daily, morning, noon, early evening and bedtime. CEPHALEXIN 99595683519 No Long er Active Hira Moser APRN Active TYLENOL/CODEINE #3 300-30 MG TAB 1-2 po q6hr PRN Pain ACETAMINOPHEN-CODEINE 92434807290 No Longer Active Edilberto Marino DO Active PRISTIQ 50 MG [id number] 1 po qd DESVENLAFAXI NE SUCCINATE 87569944782 No Longer Active Edilberto Marino DO Active PENICILLIN V POTASSIUM 500 MG TAB 1 four times a day 2 PENICILLIN V POTASSIUM 40840713900 No Longer Active Edilberto Marino DO Active DOXYCYCLINE HYCLATE 100 MG CAPS Take one (1) tablet by mouth twice a day DOXYCYCLINE HYCLATE 74350745730 No Longer Active Ronnie Galvan MD Active HYDROCODONE-ACETAMINOPHEN 5-325 MG TABS 1 po q 6hr PRN Pain 2011 HYDROCODONE-ACETAMINOPHEN 21005394920 No Longer Active Patri joan Perez RN Active BACTRIM DS 800-160 MG TAB 1 tab by mouth twice daily 2 TRIMETHOPRIM-SULFAMETHOXAZOLE 20109565962 No Longer Active Kalpesh Dong MD Active LORTAB 5 5-500 MG TABS 1/2 to 1 tablet by mouth go ry 4 hours as needed for pain HYDROCODONE-ACETAMINOPHEN 10134004046 No Longer Active Kalpesh Dong MD Active GENERESS FE 0.8-25 MG-MCG CHEW Take one by mouth daily NORETHIN-ETH ESTRADIOL-FE 84443968435 No Longer Active Kalpesh Dong MD Active HYDROCODONE-ACETAMINOPHEN 7.5-500 MG TABS 1-2 every 4 hours as needed HYDROCODONE-ACETAMINOPHEN 17250900703 No Longer Activ e Kalpesh Dong MD Active FERROUS SULFATE 325 (65 FE) MG TABS 1 tablet by mouth twice yung y FERROUS SULFATE 62455219886 No Longer Active Kalpesh Dong MD Active IBUPROFEN 600 MG TAB 1 po q6-8hr PRN IBUPROFEN 81100401950 No Longer Active Kalpesh Dong MD Active SPIRONOLACTONE 25 MG TAB 1 tablet by mouth daily 01/22 SPIRONOLACTONE 01955436726 No Longer Active Kalpesh Dong MD Acti ve HYDROCODONE-ACETAMINOPHEN 7.5-325 MG TABS 1 po QID PRN Pain 2011 HYDROCODONE-ACETAMINOPHEN 36095779471 No Longer Active Kalpesh Dong MD Active CLINDAMYCIN HCL 300 MG CAPS 1 po q6hr x 7 days CLINDAMYCIN HCL 97659609446 No Longer Active Edilberto Marino DO Active PREDNISONE 20 MG TAB 2 tabs daily for 4 days, 1 t ab daily for 4 days, 1/2 tab daily for 4 days PREDNISONE 10124792455 No Longer Active Edilberto Marino DO Active PERCOCET 5-325 MG TABS 1 tablet by mouth every 6 hours as ne eded for pain OXYCODONE-ACETAMINOPHEN 49702966793 No Longer Active Abdirahman Rios MD Active VITAMINS TABS Take one by mouth daily MV & MIN W/FE-FA TABS 03206558676 No Longer Active Abdirahman Rios MD Active LUIS 3-0.02 MG TABS 1 tablet by mouth daily as directed DROSPIRENONE-ETHINYL ESTRADIOL 18898644332 No Longer Active Abdirahman Rios MD Active LORATADINE 10 MG TABS 1 tablet by mouth daily L ORATADINE 26013424316 No Longer Active Kalpesh Dong MD Active HYDROCODONE-ACETAMINOPHEN 5-325 MG TABS 1 po q 6hr PRN Pain 2010 HYDROCODONE-ACETAMINOPHEN 78658452255 No Longer Active Edilberto Marino DO Active BACTRIM DS 800-160 MG TAB 1 tab by mouth twice daily 2 TRIMETHOPRIM-SULFAMETHOXAZOLE 11744991532 No Longer Active Abdirahman Rios MD Active 28-0.8 MG TABS Take one by mouth daily 09/20 VIT-FE FUMARATE-FA 26051172585 No Longer Active Abdirahman Rios MD Active CIPRO 500 MG TAB 1 tablet by mouth twice daily CIPROFLOXACIN HCL 60009514818 No Longer Active Abdirahman Rios MD Active BENADRYL 25 MG CAP 1 po q8hr PRN Congestion DIPHENHYDRAMINE HCL 00609144373 No Longer Active Abdirahman Rios MD Active ZOLOFT 50 MG TAB 1 po qd SERTRALINE HCL 343088 22153 No Longer Active Abdirahman Rios MD Active AMOXICILLIN 875 MG TABS 1 tab by mouth twice daily 201 08/09/13 AMOXICILLIN 10083082407 No Longer Active Abdirahman Rios MD Activ e AMOXICILLIN 875 MG TABS 1 tab by mouth twice daily 201 07/19/27 AMOXICILLIN 47410707139 No Longer Active Abdirahman Rios MD Activ e BACTRIM DS 800-160 MG TAB 2 tab by mouth twice daily 2 TRIMETHOPRIM-SULFAMETHOXAZOLE 97206748304 No Longer Active Abdirahman Rios MD Active KEFLEX 500 MG CAP 1 po tid x 10 days CEPHALEXIN 92141613847 No Longer Active Abdirahman Rios MD Active AMOXICILLIN 875 MG TABS 1 tab by mouth twice daily 201 07/18/07 AMOXICILLIN 23669071643 No Longer Active Abdirahman Rios MD Activ e BACTRIM DS 800-160 MG TAB 2 tab by mouth twice daily 2 BACTRIM DS 800-160 MG TAB 701554 TRIMETHOPRIM-SULFAMETHOXAZOLE Inactive ZOLOFT 50 MG TAB 1 po qd ZOLOFT 50 MG TAB 3129 41 SERTRALINE HCL Inactive BENADRYL 25 MG CAP 1 po q8hr PRN Congestion BENADRYL 25 MG CAP 5912585 DIPHENHYDRAMINE HCL Inactive 28-0.8 MG TABS Take one by mouth daily 09/20 28-0.8 MG TABS VIT-FE FUMARATE-FA Inactive HYDROCODONE-ACETAMINOPHEN 5-325 MG TABS 1 po q 6hr PRN Pain 2010 HYDROCODONE-ACETAMINOPHEN 5-325 MG TABS 341776 HYDROCODONE-ACETAMINOPHEN Inactive LORATADINE 10 MG TABS 1 tablet by mouth daily LORATADINE 10 MG TABS 269973 LORATADINE Inactive LUIS 3-0.02 MG TABS 1 tablet by mouth daily as directed LUIS 3-0.02 MG TABS 076081 DROSPIRENONE-ETHINYL ESTRADIOL Inactive VITAMINS TABS Take one by mouth daily VITAMINS TABS MV & MIN W/FE-FA TABS Inactive PERCOCET 5-325 MG TABS 1 tablet by mouth every 6 hours as ne eded for pain PERCOCET 5-325 MG TABS 4150570 OXYCODONE-ACETAMIN OPHEN Inactive PREDNISONE 20 MG TAB 2 tabs daily for 4 days, 1 t ab daily for 4 days, 1/2 tab daily for 4 days PREDNISONE 20 MG TAB 920943 PREDNISON E Inactive CLINDAMYCIN HCL 300 MG CAPS 1 po q6hr x 7 days CLINDAMYCIN HCL 300 MG CAPS 738691 CLINDAMYCIN HCL Inactive HYDROCODONE-ACETAMINOPHEN 7.5-325 MG TABS 1 po QID PRN Pain 2011 HYDROCODONE-ACETAMINOPHEN 7.5-325 MG TABS 456803 HYDROCODONE-ACETAMINOPHEN Inactive SPIRONOLACTONE 25 MG TAB 1 tablet by mouth daily 01/22 SPIRONOLACTONE 25 MG TAB 371719 SPIRONOLACTONE Inactive IBUPROFEN 600 MG TAB 1 po q6-8hr PRN IBUPROFEN 600 MG TAB 135247 IBUPROFEN Inactive FERROUS SULFATE 325 (65 FE) MG TABS 1 tablet by mouth twice yung y FERROUS SULFATE 325 (65 FE) MG TABS 130995 FERROUS SULF ATE Inactive HYDROCODONE-ACETAMINOPHEN 7.5-500 MG TABS 1-2 every 4 hours as needed HYDROCODONE-ACETAMINOPHEN 7.5-500 MG TABS HYDROCODONE-ACETAMINOPHEN Inactive GENERESS FE 0.8-25 MG-MCG CHEW Take one by mouth daily GENERESS FE 0.8-25 MG-MCG CHEW 5792493 NORETHIN-ETH ESTRADIOL-FE Inactive LORTAB 5 5-500 MG TABS 1/2 to 1 tablet by mouth go ry 4 hours as needed for pain LORTAB 5 5-500 MG TABS HYDROCODONE-A CETAMINOPHEN Inactive BACTRIM DS 800-160 MG TAB 1 tab by mouth twice daily 2 BACTRIM DS 800-160 MG TAB 911112 TRIMETHOPRIM-SULFAMETHOXAZOLE Inac tive HYDROCODONE-ACETAMINOPHEN 5-325 MG TABS 1 po q 6hr PRN Pain 2011 HYDROCODONE-ACETAMINOPHEN 5-325 MG TABS 547058 HYDROCODONE-ACETAMINOPHEN Inactive DOXYCYCLINE HYCLATE 100 MG CAPS Take one (1) tablet by mouth twice a day DOXYCYCLINE HYCLATE 100 MG CAPS 1185920 DOXYCYCLINE HYCLATE Inactive PENICILLIN V POTASSIUM 500 MG TAB 1 four times a day 2 PENICILLIN V POTASSIUM 500 MG TAB 071368 PENICILLIN V POTASSIUM Siri ctive PRISTIQ 50 MG [id number] 1 po qd PRISTIQ 50 MG [id number] DESVENLAFAXINE SUCCINATE Inactive TYLENOL/CODEINE #3 300-30 MG TAB 1-2 po q6hr PRN Pain TYLENOL/CODEINE #3 300-30 MG TAB 216129 ACETAMINOPHEN-CODEINE Inact krishna CEPHALEXIN 500 MG TABS Take one by mouth four times daily, morning, noon, early evening and bedtime. CEPHALEXIN 500 MG TABS 040065 CEPHALEXIN Inactive LORTAB 5 5-500 MG TABS 1/2 to 1 tablet by mouth go ry 6 hours as needed for pain LORTAB 5 5-500 MG TABS HYDROCODONE-A CETAMINOPHEN Inactive AMITRIPTYLINE HCL 25 MG TAB 1 tab by mouth daily 60 minutes before bedtime AMITRIPTYLINE HCL 25 MG TAB 830989 AMITRIPTYLINE HCL Inactive AMOXICILLIN 500 MG TABS 2 tabs PO bid x 10 d 7 AMOXICILLIN 500 MG TABS 608052 AMOXICILLIN Inactive IMPLANON 68 MG IMPL IMPLANTED IN LEFT ARM IMPLANON 68 MG IMPL ETONOGESTREL Inactive HYDROCODONE-ACETAMINOPHEN 5-325 MG TABS 1 PO tid PRN pain 5 HYDROCODONE-ACETAMINOPHEN 5-325 MG TABS 238283 HYDROCODONE-ACETAMIN OPHEN Inactive BACTRIM DS 800-160 MG TAB 1 tab by mouth twice daily 2 BACTRIM DS 800-160 MG TAB 697010 TRIMETHOPRIM-SULFAMETHOXAZOLE Inac tive CEPHALEXIN 500 MG CAPS 1 PO bid x 7 days CEPHALEXIN 500 MG CAPS 207673 CEPHALEXIN Inactive HYDROCODONE-ACETAMINOPHEN 5-325 MG TABS 1 tab by mouth every 6 hours as needed HYDROCODONE-ACETAMINOPHEN 5-325 MG TABS 788688 HYDROCODONE-ACETAMINOPHEN Inactive PROMETHAZINE-CODEINE 6.25-10 MG/5ML SYRP 1 tsp every 6 hrs prn c ough PROMETHAZINE-CODEINE 6.25-10 MG/5ML SYRP 710584 PROMETH AZINE-CODEINE Inactive IBUPROFEN 800 MG TAB 1 pill three times daily as needed for pain IBUPROFEN 800 MG TAB 959694 IBUPROFEN Inactive KEFLEX 500 MG CAP 1 tab po tid KEFLEX 500 MG CAP 287013 CEPHALEXIN Inactive HYDROCODONE-ACETAMINOPHEN 7.5-325 MG TABS 1 four times a day as needed for pain HYDROCODONE-ACETAMINOPHEN 7.5-325 MG TABS 482523 HYDROCODONE-ACETAMINOPHEN Inactive BACTRIM DS 800-160 MG TABS by mouth twice a day 11/05 BACTRIM DS 800-160 MG TABS 921946 SULFAMETHOXAZOLE-TRIMETHOPRIM Inactive IBUPROFEN 800 MG TABS 1 tid prn IBUPROFEN 800 MG TABS 656248 IBUPROFEN Inactive ENDOCET 10-325 MG TABS 1 q 6 hr prn ENDOC ET 10-325 MG TABS 9598449 OXYCODONE-ACETAMINOPHEN Inactive HYDROCODONE-ACETAMINOPHEN 7.5-325 MG TABS 1 by mouth e very 6 hours as needed for pain HYDROCODONE-ACETAMINOPHEN 7.5-325 MG TABS 820457 HYDROCODONE-ACETAMINOPHEN Inactive PERCOCET 7.5-325 MG TABS 1 PO q 8 hrs PRN pain PERCOCET 7.5-325 MG TABS 5898268 OXYCODONE-ACETAMINOPHEN Inactive LIDODERM 5 % PTCH One patch to painful area [place] On for 12 hrs, off for 12 hrs. LIDODERM 5 % [facility] 7555467 LIDOCAINE Inactiv e PERCOCET 7.5-325 MG TABS 1 PO tid PRN pain PERCOCET 7.5- 325 MG TABS 6631589 OXYCODONE-ACETAMINOPHEN Inactive MOBIC 15 MG TABS 1 tab daily MOBIC 15 MG TABS 15 2695 MELOXICAM Inactive CYCLOBENZAPRINE HCL 10 MG TABS 1/2 - 1 tab PO tid PRN back p ain, muscle spasm CYCLOBENZAPRINE HCL 10 MG TABS 850823 CYCLOBENZA JOSEPH HCL Inactive LORATADINE 10 MG TABS 1 tablet by mouth daily LORATADINE 10 MG TABS 921906 LORATADINE Inactive HYDROCODONE-ACETAMINOPHEN 10-325 MG TABS 1 by mouth ev chaka 8 hours as needed for pain HYDROCODONE-ACETAMINOPHEN 10-325 MG TABS 694490 HYDROCODONE-ACETAMINOPHEN Inactive LC-5 LIDOCAINE 5 % CREA apply 1 time daily to affected area 2013 LC-5 LIDOCAINE 5 % CREA 9023938 LIDOCAINE (ANORECTAL) In active PERCOCET 5-325 MG TAB 1 every 6 hours as needed PERCOCET 5-325 MG TAB 2653282 OXYCODONE-ACETAMINOPHEN Inactive KEFLEX 500 MG CAP 1 po qid KEFLEX 500 MG CAP 30 9114 CEPHALEXIN Inactive PROAIR HFA 108 (90 BASE) MCG/ACT AERS 2 puff q 4-6 hrs PRN 01/24 PROAIR HFA 108 (90 BASE) MCG/ACT AERS ALBUTEROL SULFATE Inactive PERCOCET 10-325 MG ORAL TABS 1 every 4 hours as needed PERCOCET 10-325 MG ORAL TABS 4203715 OXYCODONE-ACETAMINOPHEN Inactiv e EMLA 2.5-2.5 % EXT CREA apply to skin lesion q 6 hours, prn 2014 EMLA 2.5-2.5 % EXT CREA 390884 LIDOCAINE-PRILOCAINE [place] ctive PERCOCET 10-325 MG TABS 1 tab by mouth every 6 hours , use sparingly for severe pain PERCOCET 10-325 MG TABS 6779436 OXYCODONE-ACETAMINOPHEN Inactive GLUCOPHAGE 500 MG ORAL TABS one by mouth 3 times a day GLUCOPHAGE 500 MG ORAL TABS 070648 METFORMIN HCL Inactive HYDROCODONE-ACETAMINOPHEN 5-325 MG TABS 1 po q6hr PRN pain 06/30 HYDROCODONE-ACETAMINOPHEN 5-325 MG TABS 011854 HYDROCOD ONE-ACETAMINOPHEN Inactive PERCOCET 5-325 MG TAB 1 tab po q 6 -8 hours, prn for severe pain PERCOCET 5-325 MG TAB 2366850 OXYCODONE-ACETAMINOPHEN In active PERCOCET 5-325 MG ORAL TABS 1 every 6 hours as needed PERCOCET 5-325 MG ORAL TABS 4621600 OXYCODONE-ACETAMINOPHEN Inactive DICLOFENAC SODIUM 50 MG TBEC 1 tablet by mouth four times da tom PRN Pain DICLOFENAC SODIUM 50 MG TBEC [id number] DICLOFENAC S ODIUM Inactive AUGMENTIN 500-125 MG ORAL TABS 1 by mouth twice a day AUGMENTIN 500-125 MG ORAL TABS [id number] AMOXICILLIN-POT CLAVULANATE I nactive HYDROCODONE-ACETAMINOPHEN 5-325 MG TABS 1 po q6hr PRN Pain 03/09 HYDROCODONE-ACETAMINOPHEN 5-325 MG TABS [id number] HYDROCOD ONE-ACETAMINOPHEN Inactive CYCLOBENZAPRINE HCL 10 MG TABS 1 tablet by mouth three times daily as needed for muscle spasm/pain CYCLOBENZAPRINE HCL 10 MG TABS [id number] CYCLOBENZAPRINE HCL Inactive SPRINTEC 28 0.25-35 MG-MCG TABS 1 pill by mouth daily for bi rth control SPRINTEC 28 0.25-35 MG-MCG TABS [id number] NORGESTIMATE-ETH ESTRADIOL Inactive PERCOCET 5-325 MG TAB 1 tab po q 6 hours, prn severe pain PERCOCET 5-325 MG TAB [id number] OXYCODONE-ACETAMINOPHEN Inactive IBUPROFEN 600 MG ORAL TABS 1 by mouth twice a day 2014 IBUPROFEN 600 MG ORAL TABS [id number] IBUPROFEN Inactive CYMBALTA 30 MG CPEP 1 cap by mouth daily CYMBALTA 30 MG CPEP [id number] DULOXETINE HCL Inactive HYDROCODONE-ACETAMINOPHEN 5-325 MG TABS 1 po q6hr PRN Pain 04/09 HYDROCODONE-ACETAMINOPHEN 5-325 MG TABS [id number] HYDROCOD ONE-ACETAMINOPHEN Inactive TRAZODONE HCL 100 MG TAB 0.5 to 1 po qHS PRN Insomnia TRAZODONE HCL 100 MG TAB [id number] TRAZODONE HCL Inactive ALPRAZOLAM 0.5 MG TABS 1 po BID PRN Anxiety ALPRAZOLAM 0.5 MG TABS [id number] ALPRAZOLAM Inactive [id number] 50-325-40 MG ORAL CAPS 1-2 po TID UT N Headache [id number] 50-325-40 MG ORAL CAPS 2 [id number] [id number] Inactive HYDROCODONE-ACETAMINOPHEN 5-325 MG TABS 1 po TID PRN Pain 9 HYDROCODONE-ACETAMINOPHEN 5-325 MG TABS [id number] HYDROCODONE-ACETAMIN OPHEN Inactive PERCOCET 10-325 MG TABS 1 tablet every 8 hours as needed for antonia n PERCOCET 10-325 MG TABS [id number] OXYCODONE-ACETAMINOPHEN Inactive ONDANSETRON 4 MG TBDP 1 q4h PRN nausea ON DANSETRON 4 MG TBDP 711891 ONDANSETRON Inactive VIIBRYD 10 & 20 & 40 MG KIT 1 po qd as directed 07/24 VIIBRYD 10 & 20 & 40 MG KIT VILAZODONE HCL Inactive DICLOFENAC SODIUM 50 MG TBEC 1 tablet by mouth four times da tom PRN Pain DICLOFENAC SODIUM 50 MG TBEC 216139 DICLOFENAC S ODIUM Inactive PERCOCET 10-325 MG ORAL TABS one every 6 hours prn pain PERCOCET 10-325 MG ORAL TABS [id number] OXYCODONE-ACETAMINOPHEN Inactiv e PERCOCET 10-325 MG ORAL TABS take 1 tab by mouth q 4hours as needed for pain PERCOCET 10-325 MG ORAL TABS [id number] OXYCODONE-ACETAMINOPHEN Inactive FLONASE ALLERGY RELIEF 50 MCG/ACT NASAL SUSP One spray in each nostril twice a day. FLONASE ALLERGY RELIEF 50 MCG/ACT NASAL S [facility] 065049 FLUTICASONE PROPIONATE Inactive AUGMENTIN 875-125 MG TAB 1 tab by mouth twice daily with food 20 23/05/16 AUGMENTIN 875-125 MG TAB 069569 AMOXICILLIN-POT [place] Inactive HYDROCODONE-ACETAMINOPHEN 5-325 MG TABS 1 tab by mouth every 6 hours as needed for pain HYDROCODONE-ACETAMINOPHEN 5-325 MG TABS 8 79547 HYDROCODONE-ACETAMINOPHEN Inactive AMOXICILLIN 875 MG TABS 1 tab by mouth twice daily 201 07/18/07 AMOXICILLIN 875 MG TABS 820963 AMOXICILLIN Inactive KEFLEX 500 MG CAP 1 po tid x 10 days KEFLEX 500 MG CAP 084105 CEPHALEXIN Inactive AMOXICILLIN 875 MG TABS 1 tab by mouth twice daily 201 07/19/27 AMOXICILLIN 875 MG TABS 607255 AMOXICILLIN Inactive AMOXICILLIN 875 MG TABS 1 tab by mouth twice daily 201 08/09/13 AMOXICILLIN 875 MG TABS 509575 AMOXICILLIN Inactive CIPRO 500 MG TAB 1 tablet by mouth twice daily CIPRO 500 MG TAB 036790 CIPROFLOXACIN HCL Inactive BACTRIM DS 800-160 MG TAB 1 tab by mouth twice daily 2 BACTRIM DS 800-160 MG TAB 673383 TRIMETHOPRIM-SULFAMETHOXAZOLE Inac tive LEVAQUIN 500 MG TABS 1 PO q day x 7 days LEVAQUIN 500 MG TABS 969692 LEVOFLOXACIN Inactive CLINDAMYCIN HCL 300 MG CAPS 1 po QID x 7 days CLINDAMYCIN HCL 300 MG CAPS 439195 CLINDAMYCIN HCL Inactive AUGMENTIN 875-125 MG TAB 1 tab by mouth twice daily with food 20 22/05/07 AUGMENTIN 875-125 MG TAB 770292 AMOXICILLIN-POT [place] Inactive DIFLUCAN 150 MG TAB 1 qODay x 2 doses DIFLUCAN 150 MG TAB 485859 FLUCONAZOLE Inactive PREDNISONE 20 MG TAB 2 tabs daily for 3 days, 1 t ab daily for 3 days, 1/2 tab daily for 2 days PREDNISONE 20 MG TAB 927594 PREDNISON E Inactive AUGMENTIN 875-125 MG TAB 1 tab by mouth twice daily with food 20 21/10/13 AUGMENTIN 875-125 MG TAB 525991 AMOXICILLIN-POT [place] Inactive HYDROCODONE-ACETAMINOPHEN 5-325 MG TABS 1 tab by mouth every 6 hours as needed PRN Pain HYDROCODONE-ACETAMINOPHEN 5-325 MG TABS 8 37107 HYDROCODONE-ACETAMINOPHEN Inactive PROMETHAZINE HCL 25 MG TABS 1 four times a day as needed for nausea/vomiting PROMETHAZINE HCL 25 MG TABS 345432 PROMETHAZINE HCL Inactive Advance Directives Directive Description Start Date PERMISSION TO SHARE Immunizations Vaccine Administration Date Value Standard Alf cription Seasonal influenza vaccine, injectable, containing preservative, for > 3 years old (Afluria, FluLaval, Fluzone, Fluvirin, Fluarix, Agriflu(>= 18 yo)) Fluzone (>3 yrs.) [[id number]] Influenza, seasonal, inject able Seasonal influenza vaccine, injectable, preservative free, for > 3 years old (Afluria, FluLaval, Fluzone, Fluvirin, Fluarix, Agriflu(>= 18 yo)) Fluzone preservative free (>3 yrs.) [[id number]] Influenza, seasonal, injectable, preservative free Seasonal influenza vaccine, injectable, containing preservative, for > 3 years old (Afluria, FluLaval, Fluzone, Fluvirin, Fluarix, Agriflu(>= 18 yo)) Fluzone (>3 yrs.) [[id number]] Influenza, seasonal, inject able Seasonal influenza vaccine, injectable, containing preservative, for > 3 years old (Afluria, FluLaval, Fluzone, Fluvirin, Fluarix, Agriflu(>= 18 yo)) Fluzone (>3 yrs.) [[id number]] Influenza, seasonal, inject able dT (Diphtheria and [...] Panel - Chemistry sodium, serum 142 mmol/L 488-135 2290/05/12 potassium, serum 4.8 mmol/L 3.5-5.2 chloride, serum [...] Panel - Chemistry cholesterol, serum 165 mg/dL [phone]/05/12 triglyceride, serum, fasting 524 mg/dL 30-200 HDL cholesterol, serum 24 mg/dL 32-96 cholesterol, serum 181 mg/dL [phone]/09/01 triglyceride, serum, fasting 341 mg/dL 30-200 HDL [...] negative Encounters Code Encounter Date Provider Facility CPT-47650 Level 3 Est. Patient 21:00:18 SUPERVISOR RECEIVING [employer] PROCESSING Rajni danielson [facility][note 3] CPT-06029 Level 3 Est. Patient 14:15:00 SUPERVISOR RECEIVING [employer] PROCESSING Kalpesh goins MD [facility]-04162 Level 2 Est. Patient 19:57:52 SUPERVISOR RECEIVING [employer] PROCESSING Rajni Oconnor [facility] CPT-20262 Level 3 Est. Patient 16:58:40 SUPERVISOR RECEIVING [employer] PROCESSING Bj funes MD [facility]-22860 Level 3 Est. Patient 08:51:33 CDT Kalpesh ogins MD [facility] CPT-53608 Level 4 Est. Patient 14:14:53 CDT Abdirahman Rios MD [facility] CPT-20712 Level 3 Est. Patient 15:47:40 CDT Kalpesh goins MD [facility] CPT-93725 Level 3 Est. Patient 10:57:26 CDT Abdirahman Rios MD [facility] CPT-59595 Level 3 Est. Patient 14:29:53 CDT Abhinav Galvan MD [facility] CPT-22393 Level 2 Est. Patient 16:33:01 CDT Kalpesh goins MD [facility]-60669 Level 4 Est. Patient 16:44:56 CDT Abdirahman Rios MD [facility] CPT-69388 Level 2 Est. Patient 07:49:32 CDT Kalpesh goins MD [facility] CPT-29027 Level 3 New Patient 15:47:11 SUPERVISOR RECEIVING [employer] PROCESSING Bj huber MD [facility] CPT-31536 Level 4 Est. Patient 14:37:38 SUPERVISOR RECEIVING [employer] PROCESSING Abdirahman Rios MD [facility] CPT-78342 Level 2 Est. Patient 13:32:17 SUPERVISOR RECEIVING AND PROCESSING Kalpesh goins MD [facility] CPT-30554 Level 3 Est. Patient 17:32:57 SUPERVISOR RECEIVING AND PROCESSING Edilberto tiwari [facility] CPT-63489 Level 3 Est. Patient 17:22:33 SUPERVISOR RECEIVING AND PROCESSING Edilberto tiwari [facility] CPT-31312 Level 2 Est. Patient 16:57:09 SUPERVISOR RECEIVING AND PROCESSING Kalpesh goins MD [facility]-64690 Level 3 Est. Patient 14:03:08 SUPERVISOR RECEIVING AND PROCESSING Abdirahman Rios MD [facility] CPT-45893 Level 3 Est. Patient 18:12:34 CDT Shola Wright [facility] CPT-93578 Level 3 Est. Patient 19:34:46 CDT Shola Wright [facility] CPT-71766 Level 3 Est. Patient 14:19:37 CDT Abdirahman Rios MD [facility] CPT-13353 Level 3 Est. Patient 14:11:58 CDT Kalpesh goins MD [facility] CPT-16220 Level 3 Est. Patient 16:50:00 CDT Michelle MERCADO [facility] CPT-66308 Level 3 Est. Patient 17:11:32 SUPERVISOR RECEIVING [employer] PROCESSING Brandie bates MD PhD [facility] CPT-28304 Level 3 Est. Patient 16:31:47 SUPERVISOR RECEIVING AND PROCESSING Shola Wright [facility] CPT-45541 Level 3 Est. Patient 17:51:10 SUPERVISOR RECEIVING AND PROCESSING Abhinav Galvan MD [facility] CPT-30504 Level 4 Est. Patient 12:54:56 SUPERVISOR RECEIVING [employer] PROCESSING Kalpesh goins MD [facility] CPT-70676 Level 4 Est. Patient 12:53:56 SUPERVISOR RECEIVING [employer] PROCESSING Kalpesh goins MD [facility]-41395 Level 3 Est. Patient 17:56:58 CDT Shola Wright [facility] CPT-73904 Level 3 Est. Patient 14:26:20 CDT Janak butcher [facility] CPT-02113 Level 3 Est. Patient 09:38:41 CDT [facility] CPT-88154 Level 3 Est. Patient 14:45:26 CDT Edilberto tiwari [facility]-89270 Level 3 Est. Patient 10:51:33 CDT Hira muniz [facility][note 2] CPT-26013 Level 3 Est. Patient 11:57:55 SUPERVISOR RECEIVING AND PROCESSING Shola Thao Adriana [facility] CPT-61608 Level 3 Est. Patient 09:53:33 SUPERVISOR RECEIVING AND PROCESSING Edilberto tiwari [facility] CPT-09488 Level 3 Est. Patient 14:42:54 SUPERVISOR RECEIVING AND PROCESSING Abhinav Galvan MD [facility] CPT-46912 Level 3 Est. Patient 15:10:02 CDT Janak butcher [facility] CPT-00038 Level 3 Est. Patient 15:20:20 CDT Theo dennis MD [facility] CPT-30810 Level 2 Est. Patient 14:08:57 CDT Kalpesh goins MD [facility]-91547 Level 3 Est. Patient 13:56:19 CDT Abdirahman Rios MD [facility] CPT-12514 Level 3 Est. Patient 13:59:37 CDT Abdirahman Rios MD [facility] CPT-46277 Level 2 Est. Patient 14:44:59 CDT Kalpesh goins MD [facility] CPT-41574 Level 3 Est. Patient 06:06:23 CDT Edilberto tiwari DO [facility] CPT-88643 Level 3 Est. Patient 15:23:54 CDT Abdirahman Rios MD [facility] CPT-96578 Level 3 Est. Patient 15:43:49 CDT Abdirahman Rios MD [facility] CPT-27298 Level 3 Est. Patient 12:46:47 SUPERVISOR RECEIVING [employer] PROCESSING Abdirahman Rios MD [facility] CPT-82695 Level 3 Est. Patient 08:13:35 SUPERVISOR RECEIVING AND PROCESSING Abdirahman Rios MD [facility] CPT-76516 Level 2 Est. Patient 09:36:42 SUPERVISOR RECEIVING AND PROCESSING Abdirahman Rios MD [facility] CPT-97693 Level 3 Est. Patient 10:56:43 CDT Abdirahman Rios MD [facility] CPT-77883 Level 3 Est. Patient 18:24:52 CDT Abdirahman Rios MD [facility] CPT-13950 Level 3 Est. Patient 13:27:22 CDT Abdirahman Rios MD [facility] Procedures Code Procedure Name Date Entry Date Standard Desc ription CPT-99397 Postop F/U Visit 15:18:16 [employer]PER[employer]OR [employer]CEIVING [employer] PROCESSING CPT-50153 Postop F/U Visit 15:03:49 [employer]PERVISOR [employer]CEIVING [employer] PROCESSING CPT-92616 Postop F/U Visit 14:45:23 SUPERVISOR [employer]CEIVING [employer] PROCESSING CPT-07873 Postop F/U Visit 14:11:03 SUPERVISOR [employer]CEIVING [employer] PROCESSING CPT-40553 Postop F/U Visit 18:21:21 SUPERVISOR [employer]CEIVING [employer] PROCESSING CPT-30683 Postop F/U Visit 15:57:12 SUPERVISOR [employer]CEIVING [employer] PROCESSING CPT-85645 Bladder Instillation 16:58:41 SUPERVISOR RECEIVING AND PROCESSING 6 CPT-31835 Fluzone Quadrivalent Intramuscular Suspe nsion 0.5 ML 15:20:56 SUPERVISOR RECEIVING [employer] PROCESSING CPT-76744 Immunization Single Admin 15:20:56 SUPERVISOR RECEIVING [employer] PROCESSING 2014 CPT-78133 Excis pilonidal cyst simple 08:51:34 CDT 20 22/04/20 CPT-93872 Venipuncture Draw Fee 14:27:29 CDT CPT-56086 Postop F/U Visit 15:27:43 CDT CPT-75335 Postop F/U Visit 14:40:59 CDT CPT-45190 Postop F/U Visit 15:02:46 CDT CPT-80123 Postop F/U Visit 11:29:00 SUPERVISOR RECEIVING [employer] PROCESSING CPT-J0696 Rocephin 1000 mg (Ceftriaxone) 17:22:33 SUPERVISOR [employer]CEIVING [employer] PROCESSING CPT-13382 Postop F/U Visit 18:41:07 SUPERVISOR [employer]CEIVING [employer] PROCESSING CPT-47722 Postop F/U Visit 08:19:08 SUPERVISOR RECEIVING [employer] PROCESSING CPT-47168 Immunization Single Admin 16:41:53 CDT 2013 CPT-29488 Fluzone Quadrivalent Intramuscular Suspe nsion 0.5 ML 16:41:53 CDT CPT-OV Office Visit 16:39:18 CDT CPT-OV Office Visit 16:16:36 CDT CPT-OV Office Visit 15:34:48 CDT CPT-64364 Postop F/U Visit 14:50:12 CDT CPT-68847 Postop F/U Visit 14:41:10 CDT CPT-61496 Venipuncture Draw Fee 11:38:04 [employer]PER[employer]OR [employer]CEIVING [employer] PROCESSING CPT-31761 Postop F/U Visit 19:02:59 SUPERVISOR [employer]CEIVING [employer] PROCESSING CPT-18561 Postop F/U Visit 12:04:54 SUPERVISOR [employer]CEIVING [employer] PROCESSING CPT-76918 Administration single or combination vac cine inc oral 15:56:43 CDT CPT-70454 Influenza split virus > age 3 15:56:43 CDT CPT-21051 Hand comp min 3V 14:25:19 CDT CPT-19397 Postop F/U Visit 21:40:51 CDT CPT-79504 Postop F/U Visit 10:58:43 CDT CPT-01231 Administration single or combination vac cine inc oral 12:33:54 SUPERVISOR RECEIVING [employer] PROCESSING CPT-44580 Influenza Preservative Free split virus >age 3 12:33:54 SUPERVISOR RECEIVING [employer] PROCESSING CPT-76584 Administration single or combination vac cine inc oral 09:30:51 CDT CPT-63471 Influenza split virus > age 3 09:30:51 CDT CPT-82499 Postop F/U Visit 15:14:53 CDT CPT-80444 Postop F/U Visit 13:50:14 CDT CPT-09688 Postop F/U Visit 13:34:52 CDT CPT-OV Office Visit 16:55:03 CDT CPT-45869 Estancia of cervix w bx ECC 13:32:50 CDT 10/19 CPT-J1885 Toradol 60 mg (Ketorolac) 15:31:59 CDT 2011 CPT-J1885 Toradol 60 mg (Ketorolac) 15:23:54 CDT 2011 CPT-87895 Visit 11:34:37 SUPERVISOR RECEIVING [employer] PROCESSING CPT-17285 Visit 10:52:39 SUPERVISOR RECEIVING [employer] PROCESSING CPT-67116 Visit 10:12:02 SUPERVISOR RECEIVING [employer] PROCESSING CPT-25724 Visit 11:22:43 SUPERVISOR RECEIVING [employer] PROCESSING CPT-67821 Visit 11:24:12 SUPERVISOR RECEIVING [employer] PROCESSING CPT-95348 Visit 10:47:05 SUPERVISOR RECEIVING [employer] PROCESSING CPT-OV Office Visit 10:26:16 SUPERVISOR RECEIVING [employer] PROCESSING CPT-OV Office Visit 15:34:31 SUPERVISOR RECEIVING [employer] PROCESSING CPT-63709 Visit 10:42:08 SUPERVISOR RECEIVING [employer] PROCESSING CPT-32574 Visit 10:52:45 SUPERVISOR RECEIVING [employer] PROCESSING CPT-000 Give Appropriate Flu Vaccine 16:56:41 CDT 2 CPT-82486 Administration single or combination vac cine inc oral 10:33:21 CDT CPT-86840 Influenza split virus > age 3 10:33:21 CDT CPT-15295 Visit 13:23:09 CDT CPT-69379 Visit 18:24:52 CDT CPT-92435 Sono OB comp > 14 weeks 12:07:49 CDT 04/07
--- OUTSIDE RECORDS SUMMARY | 2020-01-18 16:41 | XMS REPORT | Clinical Summary ---
Author Author Admin, Jeri Rashid Organization [facility] Address Unknown Phone Unavailable Allergies, Adverse Reactions, [...] unspecified SINUSITIS, ACUTE 461.9 Active Rajni Alcazar SALES SUPPORT CONSULTANT Acute sinusitis, unspecified BACK PAIN 724.5 Resolved [...] day as needed for nausea/vomiting PROMETHAZINE HCL 61032399199 Active Abdirahman Rios MD Active LC-4 LIDOCAINE 4 % EXT CREA apply q 6 hours, prn 08/03 LIDOCAINE 27138333738 No Longer Active Kalpesh Dong MD Active PERCOCET 10-325 MG TABS 1 tablet every 8 hours as needed for antonia n OXYCODONE-ACETAMINOPHEN 61920889779 No Longer Active Kalpesh Dong MD Active HYDROCODONE-ACETAMINOPHEN 5-325 MG TABS 1 tab by mouth every 6 hours as needed for pain HYDROCODONE-ACETAMINOPHEN 46081507854 No Longer Active Kalpesh Dong MD Active PERCOCET 10-325 MG ORAL TABS 1 every 4 hous as needed OXYCODONE-ACETAMINOPHEN 86363833770 Active Hira Moser APRN Active GLYDO 2 % EXT GEL apply to painful areas as needed LIDOCAINE HCL 57587328877 Active Kalpesh Dong MD Active LC-4 LIDOCAINE 4 % EXT CREA apply to painful area every 12 h ours or as needed LIDOCAINE 08334980721 Active Kalpesh Dong MD Active AUGMENTIN 875-125 MG TAB 1 tab by mouth twice daily with food 20 23/05/16 AMOXICILLIN-POT CLAVULANATE 17163716888 No Longer Active Lizeth hi [employer] SAL[employer] SUPPORT CONSULTANT 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 FLUTICASONE PROPIONATE 40417245546 No Longer Ac tive Rajni [employer] SALES SUPPORT CONSULTANT Active PERCOCET 10-325 MG ORAL TABS take 1 tab by mouth q 4hours as needed for pain OXYCODONE-ACETAMINOPHEN 55837224747 No Longer Active Rajni [employer] SAL[employer] SUPPORT CONSULTANT Active PERCOCET 10-325 MG ORAL TABS one every 6 hours prn pain OXYCODONE-ACETAMINOPHEN 99956604873 No Longer Active Rajni [employer] SAL[employer] SUPPORT CONSULTANT Active IBUPROFEN 800 MG TABS 1 tab po tid, with food I BUPROFEN 71699397923 Active Jillina Frazell SALES SUPPORT CONSULTANT Active DICLOFENAC SODIUM 50 MG TBEC 1 tablet by mouth four times da tom PRN Pain DICLOFENAC SODIUM 35331996050 No Longer Active Rajni [employer] SAL[employer] SUPPORT CONSULTANT Active VIIBRYD 10 & 20 & 40 MG KIT 1 po qd as directed 07/24 VILAZODONE HCL 00199544308 No Longer Active Rajni [employer] SAL[employer] SUPPORT CONSULTANT Active ONDANSETRON 4 MG TBDP 1 q4h PRN nausea ONDANSET KELBY 21645470574 No Longer Active Arjni [employer] SALES SUPPORT CONSULTANT Active PERCOCET 10-325 MG TABS 1 tablet every 8 hours as needed for antonia n OXYCODONE-ACETAMINOPHEN 38677378215 No Longer Active Rajni [employer] SAL[employer] SUPPORT CONSULTANT Active HYDROCODONE-ACETAMINOPHEN 5-325 MG TABS 1 po TID PRN Pain 9 HYDROCODONE-ACETAMINOPHEN 36510256219 No Longer Active Abdirahman Rios MD Active FANBBCCICE-TNR-HHNUNVUN 50-325-40 MG ORAL CAPS 1-2 po TID MI N Headache [id number] 08648035230 No Longer Act krishna Kalpesh Dong MD Active ALPRAZOLAM 0.5 MG TABS 1 po BID PRN Anxiety ALP RAZOLAM 43343743718 No Longer Active Kalpesh Dong MD Active TRAZODONE HCL 100 MG TAB 0.5 to 1 po qHS PRN Insomnia TRAZODONE HCL 15811675245 No Longer Active Kalpesh Dong MD Activ e HYDROCODONE-ACETAMINOPHEN 5-325 MG TABS 1 po q6hr PRN Pain 04/09 HYDROCODONE-ACETAMINOPHEN 64428611019 No Longer Active Kalpesh Dong MD Active CYMBALTA 30 MG CPEP 1 cap by mouth daily DULOXE CLEO HCL 64345215691 No Longer Active Abdirahman Rios MD Active IBUPROFEN 600 MG ORAL TABS 1 by mouth twice a day 2014 IBUPROFEN 77283648407 No Longer Active Abdirahman Rios MD Activ e PERCOCET 5-325 MG TAB 1 tab po q 6 hours, prn severe pain 1 OXYCODONE-ACETAMINOPHEN 43798154325 No Longer Active Abdirahman Rios MD Active SPRINTEC 28 0.25-35 MG-MCG TABS 1 pill by mouth daily for bi rth control NORGESTIMATE-ETH ESTRADIOL 75820492418 No Longer Acti ve Jillina Frazell SALES SUPPORT CONSULTANT Active CYCLOBENZAPRINE HCL 10 MG TABS 1 tablet by mouth three times daily as needed for muscle spasm/pain CYCLOBENZAPRINE HCL 61079088902 No Longer Active Jillina Frazell SALES SUPPORT CONSULTANT Active HYDROCODONE-ACETAMINOPHEN 5-325 MG TABS 1 po q6hr PRN Pain 03/09 HYDROCODONE-ACETAMINOPHEN 66799823842 No Longer Active Jillina Frazel l SALES SUPPORT CONSULTANT Active AUGMENTIN 500-125 MG ORAL TABS 1 by mouth twice a day AMOXICILLIN-POT CLAVULANATE 75691885264 No Longer Active Jillina Frazell SALES SUPPORT CONSULTANT Active DICLOFENAC SODIUM 50 MG TBEC 1 tablet by mouth four times da tom PRN Pain DICLOFENAC SODIUM 62425406955 No Longer Active Jillin a Frazell SALES SUPPORT CONSULTANT Active PROMETHAZINE HCL 25 MG TABS 1 four times a day as needed for nausea/vomiting PROMETHAZINE HCL 83309676072 No Longer Active Abdirahman Rios MD Active HYDROCODONE-ACETAMINOPHEN 5-325 MG TABS 1 tab by mouth every 6 hours as needed PRN Pain HYDROCODONE-ACETAMINOPHEN 70430502572 No Longer Active Abdirahman Rios MD Active GEMFIBROZIL 600 MG TABS 1 po BID GEMFIBROZIL 09326191 005 Active Abdirahman Rios MD Active PERCOCET 5-325 MG ORAL TABS 1 every 6 hours as needed OXYCODONE-ACETAMINOPHEN 04920410565 No Longer Active Abdirahman Rios MD Active PERCOCET 5-325 MG TAB 1 tab po q 6 -8 hours, prn for severe pain OXYCODONE-ACETAMINOPHEN 11375804766 No Longer Active Abdirahman Rios MD Active HYDROCODONE-ACETAMINOPHEN 5-325 MG TABS 1 po q6hr PRN pain 06/30 HYDROCODONE-ACETAMINOPHEN 83477593777 No Longer Active Hira roman SALES SUPPORT CONSULTANT Active GLUCOPHAGE 500 MG ORAL TABS one by mouth 3 times a day METFORMIN HCL 99423711565 No Longer Active Hira Moser SALES SUPPORT CONSULTANT Ac tive PERCOCET 10-325 MG TABS 1 tab by mouth every 6 hours , use sparingly for severe pain OXYCODONE-ACETAMINOPHEN 01569053330 No Longer A ctive Abdirahman Rios MD Active EMLA 2.5-2.5 % EXT CREA apply to skin lesion q 6 hours, prn 2014 LIDOCAINE-PRILOCAINE 81367515277 No Longer Active Abdirahman Rios MD Active PERCOCET 10-325 MG ORAL TABS 1 every 4 hours as needed OXYCODONE-ACETAMINOPHEN 74463626884 No Longer Active Abdirahman Rios MD Active AUGMENTIN 875-125 MG TAB 1 tab by mouth twice daily with food 21/10/13 AMOXICILLIN-POT CLAVULANATE 17353765431 No Longer Active Ursula Moser APRN Active PROAIR HFA 108 (90 BASE) MCG/ACT AERS 2 puff q 4-6 hrs PRN 01/24 ALBUTEROL SULFATE 88477661816 No Longer Active Kalpesh Dong MD Active PREDNISONE 20 MG TAB 2 tabs daily for 3 days, 1 t ab daily for 3 days, 1/2 tab daily for 2 days PREDNISONE 74017183852 No Longer Active Abdirahman Rios MD Active KEFLEX 500 MG CAP 1 po qid CEPHALEXIN 951840686 20 No Longer Active Kalpesh Dong MD Active PERCOCET 5-325 MG TAB 1 every 6 hours as needed OXYCODONE-ACETAMINOPHEN 75038853870 No Longer Active Shola MCGILL Active LC-5 LIDOCAINE 5 % CREA apply 1 time daily to affected area 2013 LIDOCAINE (ANORECTAL) 37965563891 No Longer Active Hira garciaell SALES SUPPORT CONSULTANT Active HYDROCODONE-ACETAMINOPHEN 10-325 MG TABS 1 by mouth ev chaka 8 hours as needed for pain HYDROCODONE-ACETAMINOPHEN 09923274579 No Longer Active Jillina Frazell SALES SUPPORT CONSULTANT Active LORATADINE 10 MG TABS 1 tablet by mouth daily L ORATADINE 34269380815 No Longer Active Jillina Frazell SALES SUPPORT CONSULTANT Active DIFLUCAN 150 MG TAB 1 qODay x 2 doses FLUCONAZO LE 33187907941 No Longer Active Jillina Frazell SALES SUPPORT CONSULTANT Active CYCLOBENZAPRINE HCL 10 MG TABS 1/2 - 1 tab PO tid PRN back p ain, muscle spasm CYCLOBENZAPRINE HCL 91632197841 No Longer Active Karen herson Frazell SALES SUPPORT CONSULTANT Active AUGMENTIN 875-125 MG TAB 1 tab by mouth twice daily with food 20 22/05/07 AMOXICILLIN-POT CLAVULANATE 69379872532 No Longer Active Loida Rios MD Active MOBIC 15 MG TABS 1 tab daily MELOXICAM 042680003 14 No Longer Active Abdirahman Rios MD Active PERCOCET 7.5-325 MG TABS 1 PO tid PRN pain OXYCODONE-ACETAMINOPHEN 33099462531 No Longer Active Abdirahman Rios MD Active LIDODERM 5 % PTCH One patch to painful area MI N. On for 12 hrs, off for 12 hrs. LIDOCAINE 93519895039 No Longer Active Abdirahman Rios MD Active PERCOCET 7.5-325 MG TABS 1 PO q 8 hrs PRN pain OXYCODONE-ACETAMINOPHEN 51739312921 No Longer Active Shola MCGILL Active HYDROCODONE-ACETAMINOPHEN 7.5-325 MG TABS 1 by mouth e very 6 hours as needed for pain HYDROCODONE-ACETAMINOPHEN 80668692030 No Longer Active Good Julian MD Active CLINDAMYCIN HCL 300 MG CAPS 1 po QID x 7 days CLINDAMYCIN HCL 14526520508 No Longer Active Abdirahman Rios MD Activ e BACTRIM DS 800-160 MG TABS 1 po BID x 7 days 5 SULFAMETHOXAZOLE-TRIMETHOPRIM 34724504690 No Longer Active Abdirahman Rios MD Active ENDOCET 10-325 MG TABS 1 q 6 hr prn OXYCODONE-ACETAMINOPHEN 13482245079 No Longer Active Abdirahman Rios MD Active IBUPROFEN 800 MG TABS 1 tid prn IBUPROFEN 476332 28728 No Longer Active Abdirahman Rios MD Active BACTRIM DS 800-160 MG TABS by mouth twice a day 11/05 SULFAMETHOXAZOLE-TRIMETHOPRIM 99663157557 No Longer Active Good Julian MD Active HYDROCODONE-ACETAMINOPHEN 7.5-325 MG TABS 1 four times a day as needed for pain HYDROCODONE-ACETAMINOPHEN 82277903544 No Longer Activ e Good Julian MD Active KEFLEX 500 MG CAP 1 tab po tid CEPHALEXIN 273408 15638 No Longer Active Hira Moser APRN Active IBUPROFEN 800 MG TAB 1 pill three times daily as needed for pain IBUPROFEN 84271626477 No Longer Active Kalpesh Dong MD Active PROMETHAZINE-CODEINE 6.25-10 MG/5ML SYRP 1 tsp every 6 hrs prn c ough PROMETHAZINE-CODEINE 28251116175 No Longer Active Kalpesh Carr Active HYDROCODONE-ACETAMINOPHEN 5-325 MG TABS 1 tab by mouth every 6 hours as needed HYDROCODONE-ACETAMINOPHEN 75855857247 No Longer Activ e Shola MCGILL Active CEPHALEXIN 500 MG CAPS 1 PO bid x 7 days CEPHAL EXIN 90399678097 No Longer Active Shola MCGILL Active BACTRIM DS 800-160 MG TAB 1 tab by mouth twice daily 2 TRIMETHOPRIM-SULFAMETHOXAZOLE 20810826808 No Longer Active Kalpesh Dong MD Active HYDROCODONE-ACETAMINOPHEN 5-325 MG TABS 1 PO tid PRN pain 5 HYDROCODONE-ACETAMINOPHEN 70207016261 No Longer Active Abhinav Galvan MD Active IMPLANON 68 MG IMPL IMPLANTED IN LEFT ARM ETONO GESTREL 24148490489 No Longer Active Hira Moser APRN Active AMOXICILLIN 500 MG TABS 2 tabs PO bid x 10 d AM OXICILLIN 64220459060 No Longer Active Kalpesh Dong MD Active LEVAQUIN 500 MG TABS 1 PO q day x 7 days LEVOFL OXACIN 38576690057 No Longer Active Shola MCGILL Active AMITRIPTYLINE HCL 25 MG TAB 1 tab by mouth daily 60 minutes before bedtime AMITRIPTYLINE HCL 18074451200 No Longer Active Shola MCGILL Active LORTAB 5 5-500 MG TABS 1/2 to 1 tablet by mouth go ry 6 hours as needed for pain HYDROCODONE-ACETAMINOPHEN 69987189583 No Longer Active Shola MCGILL Active CEPHALEXIN 500 MG TABS Take one by mouth four times daily, morning, noon, early evening and bedtime. CEPHALEXIN 10602014194 No Long er Active Hira Moser APRN Active TYLENOL/CODEINE #3 300-30 MG TAB 1-2 po q6hr PRN Pain ACETAMINOPHEN-CODEINE 34010392331 No Longer Active Edilberto Marino DO Active PRISTIQ 50 MG [id number] 1 po qd DESVENLAFAXI NE SUCCINATE 12610876924 No Longer Active Edilberto Marino DO Active PENICILLIN V POTASSIUM 500 MG TAB 1 four times a day 2 PENICILLIN V POTASSIUM 80056336338 No Longer Active Edilberto Marino DO Active DOXYCYCLINE HYCLATE 100 MG CAPS Take one (1) tablet by mouth twice a day DOXYCYCLINE HYCLATE 10069300031 No Longer Active Ronnie Galvan MD Active HYDROCODONE-ACETAMINOPHEN 5-325 MG TABS 1 po q 6hr PRN Pain 2011 HYDROCODONE-ACETAMINOPHEN 41475299684 No Longer Active Jerson Perez RN Active BACTRIM DS 800-160 MG TAB 1 tab by mouth twice daily 2 TRIMETHOPRIM-SULFAMETHOXAZOLE 72917133884 No Longer Active Kalpesh Dong MD Active LORTAB 5 5-500 MG TABS 1/2 to 1 tablet by mouth go ry 4 hours as needed for pain HYDROCODONE-ACETAMINOPHEN 90746284928 No Longer Active Kalpesh Dong MD Active GENERESS FE 0.8-25 MG-MCG CHEW Take one by mouth daily NORETHIN-ETH ESTRADIOL-FE 59382899210 No Longer Active Kalpesh Dong MD Active HYDROCODONE-ACETAMINOPHEN 7.5-500 MG TABS 1-2 every 4 hours as needed HYDROCODONE-ACETAMINOPHEN 21441895091 No Longer Activ e Kalpesh Dong MD Active FERROUS SULFATE 325 (65 FE) MG TABS 1 tablet by mouth twice yung y FERROUS SULFATE 80819191907 No Longer Active Kalpesh Dong MD Active IBUPROFEN 600 MG TAB 1 po q6-8hr PRN IBUPROFEN 22270412384 No Longer Active Kalpesh Dong MD Active SPIRONOLACTONE 25 MG TAB 1 tablet by mouth daily 01/22 SPIRONOLACTONE 99676452774 No Longer Active Kalpesh Dong MD Acti ve HYDROCODONE-ACETAMINOPHEN 7.5-325 MG TABS 1 po QID PRN Pain 2011 HYDROCODONE-ACETAMINOPHEN 76656473081 No Longer Active Kalpesh Dong MD Active CLINDAMYCIN HCL 300 MG CAPS 1 po q6hr x 7 days CLINDAMYCIN HCL 13494948719 No Longer Active Edilberto Marino DO Active PREDNISONE 20 MG TAB 2 tabs daily for 4 days, 1 t ab daily for 4 days, 1/2 tab daily for 4 days PREDNISONE 85873689204 No Longer Active Edilberto Marino DO Active PERCOCET 5-325 MG TABS 1 tablet by mouth every 6 hours as ne eded for pain OXYCODONE-ACETAMINOPHEN 80630595715 No Longer Active Abdirahman Rios MD Active VITAMINS TABS Take one by mouth daily MV & MIN W/FE-FA TABS 44557210393 No Longer Active Abdirahman Rios MD Active LUIS 3-0.02 MG TABS 1 tablet by mouth daily as directed DROSPIRENONE-ETHINYL ESTRADIOL 73120689230 No Longer Active Abdirahman Rios MD Active LORATADINE 10 MG TABS 1 tablet by mouth daily L ORATADINE 89283062841 No Longer Active Kalpesh Dong MD Active HYDROCODONE-ACETAMINOPHEN 5-325 MG TABS 1 po q 6hr PRN Pain 2010 HYDROCODONE-ACETAMINOPHEN 83716961268 No Longer Active Edilberto Marino DO Active BACTRIM DS 800-160 MG TAB 1 tab by mouth twice daily 2 TRIMETHOPRIM-SULFAMETHOXAZOLE 69476707160 No Longer Active Abdirahman Rios MD Active 28-0.8 MG TABS Take one by mouth daily 09/20 VIT-FE FUMARATE-FA 77248438501 No Longer Active Abdirahman Rios MD Active CIPRO 500 MG TAB 1 tablet by mouth twice daily CIPROFLOXACIN HCL 38644997306 No Longer Active Abdirahman Rios MD Active BENADRYL 25 MG CAP 1 po q8hr PRN Congestion DIPHENHYDRAMINE HCL 63749501462 No Longer Active Abdirahman Rios MD Active ZOLOFT 50 MG TAB 1 po qd SERTRALINE HCL 379811 74136 No Longer Active Abdirahman Rios MD Active AMOXICILLIN 875 MG TABS 1 tab by mouth twice daily 201 08/09/13 AMOXICILLIN 47723145472 No Longer Active Abdirahman Rios MD Activ e AMOXICILLIN 875 MG TABS 1 tab by mouth twice daily 201 07/19/27 AMOXICILLIN 92841111474 No Longer Active Abdirahman Rios MD Activ e BACTRIM DS 800-160 MG TAB 2 tab by mouth twice daily 2 TRIMETHOPRIM-SULFAMETHOXAZOLE 50288008365 No Longer Active Abdirahman Rios MD Active KEFLEX 500 MG CAP 1 po tid x 10 days CEPHALEXIN 84709812382 No Longer Active Abdirahman Rios MD Active AMOXICILLIN 875 MG TABS 1 tab by mouth twice daily 201 07/18/07 AMOXICILLIN 84706442457 No Longer Active Abdirahman Rios MD Activ e BACTRIM DS 800-160 MG TAB 2 tab by mouth twice daily 2 BACTRIM DS 800-160 MG TAB 658650 TRIMETHOPRIM-SULFAMETHOXAZOLE Inactive ZOLOFT 50 MG TAB 1 po qd ZOLOFT 50 MG TAB 3129 41 SERTRALINE HCL Inactive BENADRYL 25 MG CAP 1 po q8hr PRN Congestion BENADRYL 25 MG CAP 9435238 DIPHENHYDRAMINE HCL Inactive 28-0.8 MG TABS Take one by mouth daily 09/20 28-0.8 MG TABS VIT-FE FUMARATE-FA Inactive HYDROCODONE-ACETAMINOPHEN 5-325 MG TABS 1 po q 6hr PRN Pain 2010 HYDROCODONE-ACETAMINOPHEN 5-325 MG TABS 498862 HYDROCODONE-ACETAMINOPHEN Inactive LORATADINE 10 MG TABS 1 tablet by mouth daily LORATADINE 10 MG TABS 809421 LORATADINE Inactive LUIS 3-0.02 MG TABS 1 tablet by mouth daily as directed LUIS 3-0.02 MG TABS 281127 DROSPIRENONE-ETHINYL ESTRADIOL Inactive VITAMINS TABS Take one by mouth daily VITAMINS TABS MV & MIN W/FE-FA TABS Inactive PERCOCET 5-325 MG TABS 1 tablet by mouth every 6 hours as ne eded for pain PERCOCET 5-325 MG TABS 6976917 OXYCODONE-ACETAMIN OPHEN Inactive PREDNISONE 20 MG TAB 2 tabs daily for 4 days, 1 t ab daily for 4 days, 1/2 tab daily for 4 days PREDNISONE 20 MG TAB 120785 PREDNISON E Inactive CLINDAMYCIN HCL 300 MG CAPS 1 po q6hr x 7 days CLINDAMYCIN HCL 300 MG CAPS 931981 CLINDAMYCIN HCL Inactive HYDROCODONE-ACETAMINOPHEN 7.5-325 MG TABS 1 po QID PRN Pain 2011 HYDROCODONE-ACETAMINOPHEN 7.5-325 MG TABS 562977 HYDROCODONE-ACETAMINOPHEN Inactive SPIRONOLACTONE 25 MG TAB 1 tablet by mouth daily 01/22 SPIRONOLACTONE 25 MG TAB 388014 SPIRONOLACTONE Inactive IBUPROFEN 600 MG TAB 1 po q6-8hr PRN IBUPROFEN 600 MG TAB 787322 IBUPROFEN Inactive FERROUS SULFATE 325 (65 FE) MG TABS 1 tablet by mouth twice yung y FERROUS SULFATE 325 (65 FE) MG TABS 147544 FERROUS SULF ATE Inactive HYDROCODONE-ACETAMINOPHEN 7.5-500 MG TABS 1-2 every 4 hours as needed HYDROCODONE-ACETAMINOPHEN 7.5-500 MG TABS HYDROCODONE-ACETAMINOPHEN Inactive GENERESS FE 0.8-25 MG-MCG CHEW Take one by mouth daily GENERESS FE 0.8-25 MG-MCG CHEW [id number] NORETHIN-ETH ESTRADIOL-FE Inactive LORTAB 5 5-500 MG TABS 1/2 to 1 tablet by mouth go ry 4 hours as needed for pain LORTAB 5 5-500 MG TABS HYDROCODONE-A CETAMINOPHEN Inactive BACTRIM DS 800-160 MG TAB 1 tab by mouth twice daily 2 BACTRIM DS 800-160 MG TAB 818979 TRIMETHOPRIM-SULFAMETHOXAZOLE Inac tive HYDROCODONE-ACETAMINOPHEN 5-325 MG TABS 1 po q 6hr PRN Pain 2011 HYDROCODONE-ACETAMINOPHEN 5-325 MG TABS 819427 HYDROCODONE-ACETAMINOPHEN Inactive DOXYCYCLINE HYCLATE 100 MG CAPS Take one (1) tablet by mouth twice a day DOXYCYCLINE HYCLATE 100 MG CAPS 5298449 DOXYCYCLINE HYCLATE Inactive PENICILLIN V POTASSIUM 500 MG TAB 1 four times a day 2 PENICILLIN V POTASSIUM 500 MG TAB 210460 PENICILLIN V POTASSIUM [facility] ct[facility] PRISTIQ 50 MG [id number] 1 po qd PRISTIQ 50 MG [id number] DESVENLAFAXINE SUCCINATE Inactive TYLENOL/CODEINE #3 300-30 MG TAB 1-2 po q6hr PRN Pain TYLENOL/CODEINE #3 300-30 MG TAB 460962 ACETAMINOPHEN-CODEINE Inact krishna CEPHALEXIN 500 MG TABS Take one by mouth four times daily, morning, noon, early evening and bedtime. CEPHALEXIN 500 MG TABS 751612 CEPHALEXIN Inactive LORTAB 5 5-500 MG TABS 1/2 to 1 tablet by mouth go ry 6 hours as needed for pain LORTAB 5 5-500 MG TABS HYDROCODONE-A CETAMINOPHEN Inactive AMITRIPTYLINE HCL 25 MG TAB 1 tab by mouth daily 60 minutes before bedtime AMITRIPTYLINE HCL 25 MG TAB 531917 AMITRIPTYLINE HCL Inactive AMOXICILLIN 500 MG TABS 2 tabs PO bid x 10 d 7 AMOXICILLIN 500 MG TABS 000598 AMOXICILLIN Inactive IMPLANON 68 MG IMPL IMPLANTED IN LEFT ARM IMPLANON 68 MG IMPL ETONOGESTREL Inactive HYDROCODONE-ACETAMINOPHEN 5-325 MG TABS 1 PO tid PRN pain 5 HYDROCODONE-ACETAMINOPHEN 5-325 MG TABS 125806 HYDROCODONE-ACETAMIN OPHEN Inactive BACTRIM DS 800-160 MG TAB 1 tab by mouth twice daily 2 BACTRIM DS 800-160 MG TAB 709081 TRIMETHOPRIM-SULFAMETHOXAZOLE Inac tive CEPHALEXIN 500 MG CAPS 1 PO bid x 7 days CEPHALEXIN 500 MG CAPS 230304 CEPHALEXIN Inactive HYDROCODONE-ACETAMINOPHEN 5-325 MG TABS 1 tab by mouth every 6 hours as needed HYDROCODONE-ACETAMINOPHEN 5-325 MG TABS 317048 HYDROCODONE-ACETAMINOPHEN Inactive PROMETHAZINE-CODEINE 6.25-10 MG/5ML SYRP 1 tsp every 6 hrs prn c ough PROMETHAZINE-CODEINE 6.25-10 MG/5ML SYRP 995776 PROMETH AZINE-CODEINE Inactive IBUPROFEN 800 MG TAB 1 pill three times daily as needed for pain IBUPROFEN 800 MG TAB 402783 IBUPROFEN Inactive KEFLEX 500 MG CAP 1 tab po tid KEFLEX 500 MG CAP 433009 CEPHALEXIN Inactive HYDROCODONE-ACETAMINOPHEN 7.5-325 MG TABS 1 four times a day as needed for pain HYDROCODONE-ACETAMINOPHEN 7.5-325 MG TABS 805854 HYDROCODONE-ACETAMINOPHEN Inactive BACTRIM DS 800-160 MG TABS by mouth twice a day 11/05 BACTRIM DS 800-160 MG TABS 693918 SULFAMETHOXAZOLE-TRIMETHOPRIM Inactive IBUPROFEN 800 MG TABS 1 tid prn IBUPROFEN 800 MG TABS 321592 IBUPROFEN Inactive ENDOCET 10-325 MG TABS 1 q 6 hr prn ENDOC ET 10-325 MG TABS 3125843 OXYCODONE-ACETAMINOPHEN Inactive HYDROCODONE-ACETAMINOPHEN 7.5-325 MG TABS 1 by mouth e very 6 hours as needed for pain HYDROCODONE-ACETAMINOPHEN 7.5-325 MG TABS 484505 HYDROCODONE-ACETAMINOPHEN Inactive PERCOCET 7.5-325 MG TABS 1 PO q 8 hrs PRN pain PERCOCET 7.5-325 MG TABS 5458983 OXYCODONE-ACETAMINOPHEN Inactive LIDODERM 5 % PTCH One patch to painful area MI N. On for 12 hrs, off for 12 hrs. LIDODERM 5 % PTCH 1151937 LIDOCAINE Inactiv e PERCOCET 7.5-325 MG TABS 1 PO tid PRN pain PERCOCET 7.5- 325 MG TABS 4531119 OXYCODONE-ACETAMINOPHEN Inactive MOBIC 15 MG TABS 1 tab daily MOBIC 15 MG TABS 15 2695 MELOXICAM Inactive CYCLOBENZAPRINE HCL 10 MG TABS 1/2 - 1 tab PO tid PRN back p ain, muscle spasm CYCLOBENZAPRINE HCL 10 MG TABS 084126 CYCLOBENZA JOSEPH HCL Inactive LORATADINE 10 MG TABS 1 tablet by mouth daily LORATADINE 10 MG TABS 692107 LORATADINE Inactive HYDROCODONE-ACETAMINOPHEN 10-325 MG TABS 1 by mouth ev chaka 8 hours as needed for pain HYDROCODONE-ACETAMINOPHEN 10-325 MG TABS 614063 HYDROCODONE-ACETAMINOPHEN Inactive LC-5 LIDOCAINE 5 % CREA apply 1 time daily to affected area 2013 LC-5 LIDOCAINE 5 % CREA 3499782 LIDOCAINE (ANORECTAL) In active PERCOCET 5-325 MG TAB 1 every 6 hours as needed PERCOCET 5-325 MG TAB 4330663 OXYCODONE-ACETAMINOPHEN Inactive KEFLEX 500 MG CAP 1 po qid KEFLEX 500 MG CAP 30 9114 CEPHALEXIN Inactive PROAIR HFA 108 (90 BASE) MCG/ACT AERS 2 puff q 4-6 hrs PRN 01/24 PROAIR HFA 108 (90 BASE) MCG/ACT AERS ALBUTEROL SULFATE Inactive PERCOCET 10-325 MG ORAL TABS 1 every 4 hours as needed PERCOCET 10-325 MG ORAL TABS 0806456 OXYCODONE-ACETAMINOPHEN Inactiv e EMLA 2.5-2.5 % EXT CREA apply to skin lesion q 6 hours, prn 2014 EMLA 2.5-2.5 % EXT CREA 482589 LIDOCAINE-PRILOCAINE [facility] ct[facility] PERCOCET 10-325 MG TABS 1 tab by mouth every 6 hours , use sparingly for severe pain PERCOCET 10-325 MG TABS 8584028 OXYCODONE-ACETAMINOPHEN Inactive GLUCOPHAGE 500 MG ORAL TABS one by mouth 3 times a day GLUCOPHAGE 500 MG ORAL TABS 434503 METFORMIN HCL Inactive HYDROCODONE-ACETAMINOPHEN 5-325 MG TABS 1 po q6hr PRN pain 06/30 HYDROCODONE-ACETAMINOPHEN 5-325 MG TABS 539836 HYDROCOD ONE-ACETAMINOPHEN Inactive PERCOCET 5-325 MG TAB 1 tab po q 6 -8 hours, prn for severe pain PERCOCET 5-325 MG TAB 1558013 OXYCODONE-ACETAMINOPHEN In active PERCOCET 5-325 MG ORAL TABS 1 every 6 hours as needed PERCOCET 5-325 MG ORAL TABS 1033998 OXYCODONE-ACETAMINOPHEN Inactive DICLOFENAC SODIUM 50 MG TBEC 1 tablet by mouth four times da tmo PRN Pain DICLOFENAC SODIUM 50 MG TBEC 446793 DICLOFENAC S ODIUM Inactive AUGMENTIN 500-125 MG ORAL TABS 1 by mouth twice a day AUGMENTIN 500-125 MG ORAL TABS 167041 AMOXICILLIN-POT CLAVULANATE I nactive HYDROCODONE-ACETAMINOPHEN 5-325 MG TABS 1 po q6hr PRN Pain 03/09 HYDROCODONE-ACETAMINOPHEN 5-325 MG TABS [id number] HYDROCOD ONE-ACETAMINOPHEN Inactive CYCLOBENZAPRINE HCL 10 MG TABS 1 tablet by mouth three times daily as needed for muscle spasm/pain CYCLOBENZAPRINE HCL 10 MG TABS [id number] CYCLOBENZAPRINE HCL Inactive SPRINTEC 28 0.25-35 MG-MCG TABS 1 pill by mouth daily for bi rth control SPRINTEC 28 0.25-35 MG-MCG TABS [id number] NORGESTIMATE-ETH ESTRADIOL Inactive PERCOCET 5-325 MG TAB 1 tab po q 6 hours, prn severe pain PERCOCET 5-325 MG TAB [id number] OXYCODONE-ACETAMINOPHEN Inactive IBUPROFEN 600 MG ORAL TABS 1 by mouth twice a day 2014 IBUPROFEN 600 MG ORAL TABS [id number] IBUPROFEN Inactive CYMBALTA 30 MG CPEP 1 cap by mouth daily CYMBALTA 30 MG CPEP [id number] DULOXETINE HCL Inactive HYDROCODONE-ACETAMINOPHEN 5-325 MG TABS 1 po q6hr PRN Pain 04/09 HYDROCODONE-ACETAMINOPHEN 5-325 MG TABS 480521 HYDROCOD ONE-ACETAMINOPHEN Inactive TRAZODONE HCL 100 MG TAB 0.5 to 1 po qHS PRN Insomnia TRAZODONE HCL 100 MG TAB 460691 TRAZODONE HCL Inactive ALPRAZOLAM 0.5 MG TABS 1 po BID PRN Anxiety ALPRAZOLAM 0.5 MG TABS [id number] ALPRAZOLAM Inactive [id number]-HIS-IARPRCVH 50-325-40 MG ORAL CAPS 1-2 po TID MI N Headache [id number] 50-325-40 MG ORAL CAPS 2 67820 GENQXGONAY-EOWRSTI-ZXIQDAVM Inactive HYDROCODONE-ACETAMINOPHEN 5-325 MG TABS 1 po TID PRN Pain 9 HYDROCODONE-ACETAMINOPHEN 5-325 MG TABS 168385 HYDROCODONE-ACETAMIN OPHEN Inactive PERCOCET 10-325 MG TABS 1 tablet every 8 hours as needed for antonia n PERCOCET 10-325 MG TABS [id number] OXYCODONE-ACETAMINOPHEN Inactive ONDANSETRON 4 MG TBDP 1 q4h PRN nausea ON DANSETRON 4 MG TBDP 352234 ONDANSETRON Inactive VIIBRYD 10 & 20 & 40 MG KIT 1 po qd as directed 07/24 VIIBRYD 10 & 20 & 40 MG KIT VILAZODONE HCL Inactive DICLOFENAC SODIUM 50 MG TBEC 1 tablet by mouth four times da tom PRN Pain DICLOFENAC SODIUM 50 MG TBEC [id number] DICLOFENAC S ODIUM Inactive PERCOCET 10-325 MG ORAL TABS one every 6 hours prn pain PERCOCET 10-325 MG ORAL TABS [id number] OXYCODONE-ACETAMINOPHEN Inactiv e PERCOCET 10-325 MG ORAL TABS take 1 tab by mouth q 4hours as needed for pain PERCOCET 10-325 MG ORAL TABS [id number] OXYCODONE-ACETAMINOPHEN Inactive FLONASE ALLERGY RELIEF 50 MCG/ACT NASAL SUSP One spray in each nostril twice a day. FLONASE ALLERGY RELIEF 50 MCG/ACT NASAL S CUSTODIAL [id number] FLUTICASONE PROPIONATE Inactive AUGMENTIN 875-125 MG TAB 1 tab by mouth twice daily with food 20 23/05/16 AUGMENTIN 875-125 MG TAB [id number] AMOXICILLIN-POT [place] Inactive HYDROCODONE-ACETAMINOPHEN 5-325 MG TABS 1 tab by mouth every 6 hours as needed for pain HYDROCODONE-ACETAMINOPHEN 5-325 MG TABS 8 33153 HYDROCODONE-ACETAMINOPHEN Inactive PERCOCET 10-325 MG TABS 1 tablet every 8 hours as needed for antonia n PERCOCET 10-325 MG TABS [id number] OXYCODONE-ACETAMINOPHEN Inactive LC-4 LIDOCAINE 4 % EXT CREA apply q 6 hours, prn 08/03 LC-4 LIDOCAINE 4 % EXT CREA [id number] LIDOCAINE Inactive AMOXICILLIN 875 MG TABS 1 tab by mouth twice daily 201 07/18/07 AMOXICILLIN 875 MG TABS 802450 AMOXICILLIN Inactive KEFLEX 500 MG CAP 1 po tid x 10 days KEFLEX 500 MG CAP 764314 CEPHALEXIN Inactive AMOXICILLIN 875 MG TABS 1 tab by mouth twice daily 201 07/19/27 AMOXICILLIN 875 MG TABS 529929 AMOXICILLIN Inactive AMOXICILLIN 875 MG TABS 1 tab by mouth twice daily 201 08/09/13 AMOXICILLIN 875 MG TABS 857161 AMOXICILLIN Inactive CIPRO 500 MG TAB 1 tablet by mouth twice daily CIPRO 500 MG TAB 854334 CIPROFLOXACIN HCL Inactive BACTRIM DS 800-160 MG TAB 1 tab by mouth twice daily 2 BACTRIM DS 800-160 MG TAB 692888 TRIMETHOPRIM-SULFAMETHOXAZOLE Inac tive LEVAQUIN 500 MG TABS 1 PO q day x 7 days LEVAQUIN 500 MG TABS 665155 LEVOFLOXACIN Inactive CLINDAMYCIN HCL 300 MG CAPS 1 po QID x 7 days CLINDAMYCIN HCL 300 MG CAPS 757947 CLINDAMYCIN HCL Inactive AUGMENTIN 875-125 MG TAB 1 tab by mouth twice daily with food 20 22/05/07 AUGMENTIN 875-125 MG TAB 730764 AMOXICILLIN-POT [place] Inactive DIFLUCAN 150 MG TAB 1 qODay x 2 doses DIFLUCAN 150 MG TAB 019499 FLUCONAZOLE Inactive PREDNISONE 20 MG TAB 2 tabs daily for 3 days, 1 t ab daily for 3 days, 1/2 tab daily for 2 days PREDNISONE 20 MG TAB 517225 PREDNISON E Inactive AUGMENTIN 875-125 MG TAB 1 tab by mouth twice daily with food 20 21/10/13 AUGMENTIN 875-125 MG TAB 948879 AMOXICILLIN-POT [place] Inactive HYDROCODONE-ACETAMINOPHEN 5-325 MG TABS 1 tab by mouth every 6 hours as needed PRN Pain HYDROCODONE-ACETAMINOPHEN 5-325 MG TABS 8 76401 HYDROCODONE-ACETAMINOPHEN Inactive PROMETHAZINE HCL 25 MG TABS 1 four times a day as needed for nausea/vomiting PROMETHAZINE HCL 25 MG TABS 185673 PROMETHAZINE HCL Inactive Advance Directives Directive Description Start Date PERMISSION TO SHARE Immunizations Vaccine Administration Date Value Standard Alf cription Seasonal influenza vaccine, injectable, containing preservative, for > 3 years old (Afluria, FluLaval, Fluzone, Fluvirin, Fluarix, Agriflu(>= 18 yo)) Fluzone (>3 yrs.) [[id number]] Influenza, seasonal, inject able Seasonal influenza vaccine, injectable, preservative free, for > 3 years old (Afluria, FluLaval, Fluzone, Fluvirin, Fluarix, Agriflu(>= 18 yo)) Fluzone preservative free (>3 yrs.) [[id number]] Influenza, seasonal, injectable, preservative free Seasonal influenza vaccine, injectable, containing preservative, for > 3 years old (Afluria, FluLaval, Fluzone, Fluvirin, Fluarix, Agriflu(>= 18 yo)) Fluzone (>3 yrs.) [[id number]] Influenza, seasonal, inject able Seasonal influenza vaccine, injectable, containing preservative, for > 3 years old (Afluria, FluLaval, Fluzone, Fluvirin, Fluarix, Agriflu(>= 18 yo)) Fluzone (>3 yrs.) [[id number]] Influenza, seasonal, inject able dT (Diphtheria and Tetanus) booster given [facility] Td(adult) unspecified formulation Vital Signs Date Name [...] Panel - Chemistry sodium, serum 142 mmol/L 498-300 7703/05/12 potassium, serum 4.8 mmol/L 3.5-5.2 chloride, serum [...] Panel - Chemistry cholesterol, serum 165 mg/dL [phone]/05/12 triglyceride, serum, fasting 524 mg/dL 30-200 HDL cholesterol, serum 24 mg/dL 32-96 cholesterol, serum 181 mg/dL 275-072 7586/09/01 triglyceride, serum, fasting 341 mg/dL 30-200 HDL [...] negative Encounters Code Encounter Date Provider Facility CPT-60077 Level 3 Est. Patient 05:31:41 [employer] [employer] Kalpesh goins MD [facility] CPT-50045 Level 3 Est. Patient 11:22:02 [employer] Hira muniz [facility] CPT-61783 Level 3 Est. Patient 21:00:18 [employer] Rajni danielson [facility] CPT-01699 Level 3 Est. Patient 14:15:00 [employer] Kalpesh goins MD [facility] CPT-20000 Level 2 Est. Patient 19:57:52 [employer] Rajni danielson [facility] CPT-72901 Level 3 Est. Patient 16:58:40 [employer] Bj funes MD [facility] CPT-90583 Level 3 Est. Patient 08:51:33 CDT Kalpesh goins MD [facility] CPT-97237 Level 4 Est. Patient 14:14:53 CDT Abdirahman Rios MD [facility] CPT-08058 Level 3 Est. Patient 15:47:40 CDT Kalpesh goins MD [facility]-68249 Level 3 Est. Patient 10:57:26 CDT Abdirahman Rios MD [facility]-24026 Level 3 Est. Patient 14:29:53 CDT Abhinav Galvan MD [facility]-61208 Level 2 Est. Patient 16:33:01 CDT Kalpesh goins MD [facility]-83025 Level 4 Est. Patient 16:44:56 CDT Abdirahman Rios MD [facility]-92617 Level 2 Est. Patient 07:49:32 CDT Kalpesh goins MD [facility] CPT-20801 Level 3 New Patient 15:47:11 [employer] Bj huber MD [facility]-37322 Level 4 Est. Patient 14:37:38 [employer] Abdirahman Rios MD [facility] CPT-46840 Level 2 Est. Patient 13:32:17 [employer] Kalpesh goins MD [facility]-74133 Level 3 Est. Patient 17:32:57 [employer] Edilberto itwari [facility] CPT-14250 Level 3 Est. Patient 17:22:33 [employer] Edilberto tiwari [facility] CPT-24450 Level 2 Est. Patient 16:57:09 [employer] Kalpesh goins MD [facility] CPT-97722 Level 3 Est. Patient 14:03:08 [employer] Abdirahman Rios MD [facility] CPT-65829 Level 3 Est. Patient 18:12:34 CDT Shola Wright [facility] CPT-19978 Level 3 Est. Patient 19:34:46 CDT Shola Wright [facility] CPT-64374 Level 3 Est. Patient 14:19:37 CDT Abdirahman Rios MD [facility] CPT-20166 Level 3 Est. Patient 14:11:58 CDT Kalpesh goins MD [facility] CPT-48707 Level 3 Est. Patient 16:50:00 CDT Michelle BRADFORDP [facility] CPT-04772 Level 3 Est. Patient 17:11:32 [employer] Brandie bates MD PhD [facility] CPT-42572 Level 3 Est. Patient 16:31:47 [employer] Shola Wright [facility] CPT-73046 Level 3 Est. Patient 17:51:10 [employer] Abhinav Galvan MD [facility] CPT-91703 Level 4 Est. Patient 12:54:56 [employer] Kalpesh goins MD [facility] CPT-50202 Level 4 Est. Patient 12:53:56 [employer] Kalpesh goins MD [facility] CPT-62043 Level 3 Est. Patient 17:56:58 CDT Shola Wright [facility] CPT-35401 Level 3 Est. Patient 14:26:20 CDT Janak butcher [facility] CPT-52999 Level 3 Est. Patient 09:38:41 CDT Shola Wright [facility] CPT-86272 Level 3 Est. Patient 14:45:26 CDT Edilberto itwari [facility] CPT-94336 Level 3 Est. Patient 10:51:33 CDT [facility]120 Level 3 Est. Patient 11:57:55 [employer] Shola Wright [facility] CPT-07798 Level 3 Est. Patient 09:53:33 [employer] Edilberto tiwari [facility] CPT-01611 Level 3 Est. Patient 14:42:54 [employer] Abhinav Galvan MD [facility] CPT-37568 Level 3 Est. Patient 15:10:02 CDT Janak Stevenamira [facility] CPT-16952 Level 3 Est. Patient 15:20:20 CDT Theo dennis MD [facility] CPT-20156 Level 2 Est. Patient 14:08:57 CDT Kalpesh goins MD [facility] CPT-70453 Level 3 Est. Patient 13:56:19 CDT Abdirahman Rios MD [facility] CPT-69619 Level 3 Est. Patient 13:59:37 CDT Abdirahman Rios MD [facility] CPT-49867 Level 2 Est. Patient 14:44:59 CDT Kalpesh goins MD [facility] CPT-28833 Level 3 Est. Patient 06:06:23 CDT Edilberto tiwari DO [facility] CPT-61559 Level 3 Est. Patient 15:23:54 CDT Abdirahman Rios MD [facility] CPT-91817 Level 3 Est. Patient 15:43:49 CDT Abdirahman Rios MD [facility] CPT-57898 Level 3 Est. Patient 12:46:47 [employer] Abdirahman Rios MD [facility] CPT-45490 Level 3 Est. Patient 08:13:35 [employer] Abdirahman Rios MD [facility] CPT-41235 Level 2 Est. Patient 09:36:42 [employer] Abdirahman Rios MD [facility] CPT-67160 Level 3 Est. Patient 10:56:43 CDT Abdirahman Rios MD [facility] CPT-31975 Level 3 Est. Patient 18:24:52 CDT Abdirahman Rios MD [facility] CPT-35362 Level 3 Est. Patient 13:27:22 CDT Abdirahman Rios MD [facility] Procedures Code Procedure Name Date Entry Date Standard Desc ription CPT-36418 Postop F/U Visit 14:08:43 [employer]ER CPT-97056 Postop F/U Visit 15:18:16 [employer] CPT-13513 Postop F/U Visit 15:03:49 [employer] CPT-02818 Postop F/U Visit 14:45:23 [employer]ER CPT-27944 Postop F/U Visit 14:11:03 [employer]ER CPT-42077 Postop F/U Visit 18:21:21 [employer] CPT-26890 Postop F/U Visit 15:57:12 [employer] CPT-13401 Bladder Instillation 16:58:41 [employer] PICKER 6 CPT-15029 Fluzone Quadrivalent Intramuscular Suspe nsion 0.5 ML 15:20:56 [employer] CPT-89986 Immunization Single Admin 15:20:56 [employer]ICKER 2014 CPT-36621 Excis pilonidal cyst simple 08:51:34 CDT 20 22/04/20 CPT-60729 Venipuncture Draw Fee 14:27:29 CDT CPT-56358 Postop F/U Visit 15:27:43 CDT CPT-93473 Postop F/U Visit 14:40:59 CDT CPT-93298 Postop F/U Visit 15:02:46 CDT CPT-87811 Postop F/U Visit 11:29:00 [employer] CPT-J0696 Rocephin 1000 mg (Ceftriaxone) 17:22:33 [employer] CPT-41145 Postop F/U Visit 18:41:07 [employer] CPT-73525 Postop F/U Visit 08:19:08 [employer] CPT-36075 Immunization Single Admin 16:41:53 CDT 2013 CPT-65265 Fluzone Quadrivalent Intramuscular Suspe nsion 0.5 ML 16:41:53 CDT CPT-OV Office Visit 16:39:18 CDT CPT-OV Office Visit 16:16:36 CDT CPT-OV Office Visit 15:34:48 CDT CPT-67545 Postop F/U Visit 14:50:12 CDT CPT-44614 Postop F/U Visit 14:41:10 CDT CPT-86843 Venipuncture Draw Fee 11:38:04 [employer] CPT-87088 Postop F/U Visit 19:02:59 [employer] CPT-99490 Postop F/U Visit 12:04:54 [employer] CPT-14056 Administration single or combination vac cine inc oral 15:56:43 CDT CPT-45230 Influenza split virus > age 3 15:56:43 CDT CPT-88110 Hand comp min 3V 14:25:19 CDT CPT-44500 Postop F/U Visit 21:40:51 CDT CPT-29088 Postop F/U Visit 10:58:43 CDT CPT-61106 Administration single or combination vac cine inc oral 12:33:54 [employer] CPT-19088 Influenza Preservative Free split virus >age 3 12:33:54 [employer] CPT-03514 Administration single or combination vac cine inc oral 09:30:51 CDT CPT-39829 Influenza split virus > age 3 09:30:51 CDT CPT-91900 Postop F/U Visit 15:14:53 CDT CPT-24189 Postop F/U Visit 13:50:14 CDT CPT-14307 Postop F/U Visit 13:34:52 CDT CPT-OV Office Visit 16:55:03 CDT CPT-19625 [place] of cervix w bx ECC 13:32:50 CDT 10/19 CPT-J1885 Toradol 60 mg (Ketorolac) 15:31:59 CDT 2011 CPT-J1885 Toradol 60 mg (Ketorolac) 15:23:54 CDT 2011 CPT-25031 Visit 11:34:37 [employer] CPT-44677 Visit 10:52:39 [employer] CPT-36048 Visit 10:12:02 [employer] CPT-18674 Visit 11:22:43 [employer] CPT-58291 Visit 11:24:12 [employer] CPT-07957 Visit 10:47:05 [employer] CPT-OV Office Visit 10:26:16 [employer] CPT-OV Office Visit 15:34:31 [employer] CPT-69239 Visit 10:42:08 [employer] CPT-78613 Visit 10:52:45 [employer] CPT-000 Give Appropriate Flu Vaccine 16:56:41 CDT 2 CPT-30627 Administration single or combination vac cine inc oral 10:33:21 CDT CPT-60801 Influenza split virus > age 3 10:33:21 CDT CPT-61370 Visit 13:23:09 CDT CPT-19391 Visit 18:24:52 CDT CPT-17052 Sono OB comp > 14 weeks 12:07:49 CDT 04/07
--- OUTSIDE RECORDS SUMMARY | 2020-01-18 16:41 | XMS REPORT | Clinical Summary ---
Author Author Avery, Jeri Cabrera [employer] Address Unknown Phone Unavailable Allergies, Adverse Reactions, Alerts Allergy Name Reaction Description Start Date Severity Status Pr ovider SULFA Critical Active Jillina Frazel l PROFESSIONAL BUILDER TORADOL Rash Severe Active Rajni Yokjagjit AP [...] at surgical incision 782.0 Active Hira Moser PROFESSIONAL BUILDER Disturbance of skin sensation , INCIDENTAL PROBLEM [...] RESPIRATORY INFECTION (URI) ICD-465.9 In active Good Juilan MD HEADACHE ICD-784.0 Inactive Good collier MD [...] EXT CREA apply tid, prn LIDOCAIN E-PRILOCAINE 87508135254 Active Jillina Frajalenl PROFESSIONAL BUILDER Active PERCOCET 5-325 MG TAB 1 tab po q 6 hours, prn OXYCODONE-ACETAMINOPHEN 12570987328 Active Jillina Frazell PROFESSIONAL BUILDER Active [id number] 50-325-40 MG ORAL TABS 1 po TID PRN Headaches [id number] 05958031301 No Longer Active Jillina Karmenl PROFESSIONAL BUILDER Active GLYDO 2 % EXT GEL apply to painful areas as needed 201 12/10/13 LIDOCAINE HCL 53369485687 No Longer Active Jillina Karmenl PROFESSIONAL BUILDER Ac tive PERCOCET 10-325 MG ORAL TABS 1 every 4 hous as needed OXYCODONE-ACETAMINOPHEN 25228135725 No Longer Active Jillina Karmenl PROFESSIONAL BUILDER Active LC-4 LIDOCAINE 4 % EXT CREA apply to painful area every 12 h ours or as needed LIDOCAINE 42892158892 No Longer Active Jillina Fra janee PROFESSIONAL BUILDER Active CHANTIX STARTING MONTH MARGARITA 0.5 MG X 11 & 1 MG X 42 TAB S 0.5mg daily for 3 days, then 0.5mg BID for 4 days, then 1mg BID VARENICL INE TARTRATE 02998954823 Active Abdirahman Rios MD Active AMOXICILLIN 500 MG CAPS 2 po BID x 10 days AMOX ICILLIN 30357354790 No Longer Active Abdirahman Rios MD Active PROMETHAZINE HCL 25 MG TABS 1 four times a day as needed for nausea/vomiting PROMETHAZINE HCL 53463135787 No Longer Active Abdirahman Rios MD Active LC-4 LIDOCAINE 4 % EXT CREA apply q 6 hours, prn 08/03 LIDOCAINE 38780681413 No Longer Active Kalpesh Dong MD Active PERCOCET 10-325 MG TABS 1 tablet every 8 hours as needed for antonia n OXYCODONE-ACETAMINOPHEN 77848743412 No Longer Active Kalpesh Dong MD Active HYDROCODONE-ACETAMINOPHEN 5-325 MG TABS 1 tab by mouth every 6 hours as needed for pain HYDROCODONE-ACETAMINOPHEN 13496720440 No Longer Active Kalpesh Dong MD Active AUGMENTIN 875-125 MG TAB 1 tab by mouth twice daily with food 20 23/05/16 AMOXICILLIN-POT CLAVULANATE 96555219739 No Longer Active Lizeth hi Yokum PROFESSIONAL BUILDER 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 FLUTICASONE PROPIONATE 75907696730 No Longer Ac tive Rajni Yokum PROFESSIONAL BUILDER Active PERCOCET 10-325 MG ORAL TABS take 1 tab by mouth q 4hours as needed for pain OXYCODONE-ACETAMINOPHEN 46316257134 No Longer Active Rajni Yokum PROFESSIONAL BUILDER Active PERCOCET 10-325 MG ORAL TABS one every 6 hours prn pain OXYCODONE-ACETAMINOPHEN 91694396430 No Longer Active Rajni Yokum PROFESSIONAL BUILDER Active IBUPROFEN 800 MG TABS 1 tab po tid, with food I BUPROFEN 10948958920 Active Jillina Frazell PROFESSIONAL BUILDER Active DICLOFENAC SODIUM 50 MG TBEC 1 tablet by mouth four times da tom PRN Pain DICLOFENAC SODIUM 52425965232 No Longer Active Rajni Yokum PROFESSIONAL BUILDER Active VIIBRYD 10 & 20 & 40 MG KIT 1 po qd as directed 07/24 VILAZODONE HCL 48355649760 No Longer Active Rajni Yokum PROFESSIONAL BUILDER Active ONDANSETRON 4 MG TBDP 1 q4h PRN nausea ONDANSET KELBY 65714368810 No Longer Active Rajni Yoyanaum PROFESSIONAL BUILDER Active PERCOCET 10-325 MG TABS 1 tablet every 8 hours as needed for antonia n OXYCODONE-ACETAMINOPHEN 10307271117 No Longer Active Rajni cox PROFESSIONAL BUILDER Active HYDROCODONE-ACETAMINOPHEN 5-325 MG TABS 1 po TID PRN Pain 9 HYDROCODONE-ACETAMINOPHEN 90403864078 No Longer Active Abdirahman Rios MD Active [id number] 50-325-40 MG ORAL CAPS 1-2 po TID RI N Headache DICELRLJKR-[id number]-LFTNVIML 91019185956 No Longer Act krishna Kalpesh Dong MD Active ALPRAZOLAM 0.5 MG TABS 1 po BID PRN Anxiety ALP RAZOLAM 53187531933 No Longer Active Kalpesh Dong MD Active TRAZODONE HCL 100 MG TAB 0.5 to 1 po qHS PRN Insomnia TRAZODONE HCL 04104871404 No Longer Active Kalpesh Dong MD Activ e HYDROCODONE-ACETAMINOPHEN 5-325 MG TABS 1 po q6hr PRN Pain 04/09 HYDROCODONE-ACETAMINOPHEN 09494334340 No Longer Active Kalpesh Dong MD Active CYMBALTA 30 MG CPEP 1 cap by mouth daily DULOXE CLEO HCL 94624198008 No Longer Active Abdirahman Rios MD Active IBUPROFEN 600 MG ORAL TABS 1 by mouth twice a day 2014 IBUPROFEN 11879384463 No Longer Active Abdirahman Rios MD Activ e PERCOCET 5-325 MG TAB 1 tab po q 6 hours, prn severe pain 1 OXYCODONE-ACETAMINOPHEN 99102730806 No Longer Active Abdirahman Rios MD Active SPRINTEC 28 0.25-35 MG-MCG TABS 1 pill by mouth daily for bi rth control NORGESTIMATE-ETH ESTRADIOL 73347624266 No Longer Acti ve Matthewllina Joyzell PROFESSIONAL BUILDER Active CYCLOBENZAPRINE HCL 10 MG TABS 1 tablet by mouth three times daily as needed for muscle spasm/pain CYCLOBENZAPRINE HCL 05795915867 No Longer Active Jillina Frazell PROFESSIONAL BUILDER Active HYDROCODONE-ACETAMINOPHEN 5-325 MG TABS 1 po q6hr PRN Pain 03/09 HYDROCODONE-ACETAMINOPHEN 40920706666 No Longer Active Matthewllina Joyzel l PROFESSIONAL BUILDER Active AUGMENTIN 500-125 MG ORAL TABS 1 by mouth twice a day AMOXICILLIN-POT CLAVULANATE 35271720402 No Longer Active Jillina Frazell PROFESSIONAL BUILDER Active DICLOFENAC SODIUM 50 MG TBEC 1 tablet by mouth four times da tom PRN Pain DICLOFENAC SODIUM 83328506372 No Longer Active Jillin a Karmenl PROFESSIONAL BUILDER Active PROMETHAZINE HCL 25 MG TABS 1 four times a day as needed for nausea/vomiting PROMETHAZINE HCL 66208643265 No Longer Active Abdirahman Rios MD Active HYDROCODONE-ACETAMINOPHEN 5-325 MG TABS 1 tab by mouth every 6 hours as needed PRN Pain HYDROCODONE-ACETAMINOPHEN 12302722598 No Longer Active Abdirahman Rios MD Active GEMFIBROZIL 600 MG TABS 1 po BID GEMFIBROZIL 06631141 005 Active Abdirahman Rios MD Active PERCOCET 5-325 MG ORAL TABS 1 every 6 hours as needed OXYCODONE-ACETAMINOPHEN 00085899603 No Longer Active Abdirahman Rios MD Active PERCOCET 5-325 MG TAB 1 tab po q 6 -8 hours, prn for severe pain OXYCODONE-ACETAMINOPHEN 52103787477 No Longer Active Abdirahman Rios MD Active HYDROCODONE-ACETAMINOPHEN 5-325 MG TABS 1 po q6hr PRN pain 06/30 HYDROCODONE-ACETAMINOPHEN 43600558209 No Longer Active Hira roman PROFESSIONAL BUILDER Active GLUCOPHAGE 500 MG ORAL TABS one by mouth 3 times a day METFORMIN HCL 98313517595 No Longer Active Hira Moser PROFESSIONAL BUILDER Ac tive PERCOCET 10-325 MG TABS 1 tab by mouth every 6 hours , use sparingly for severe pain OXYCODONE-ACETAMINOPHEN 13931573364 No Longer A ctive Abdirahman Rios MD Active EMLA 2.5-2.5 % EXT CREA apply to skin lesion q 6 hours, prn 2014 LIDOCAINE-PRILOCAINE 05057237867 No Longer Active Abdirahman Rios MD Active PERCOCET 10-325 MG ORAL TABS 1 every 4 hours as needed OXYCODONE-ACETAMINOPHEN 12529368888 No Longer Active Abdirahman Rios MD Active AUGMENTIN 875-125 MG TAB 1 tab by mouth twice daily with food 20 21/10/13 AMOXICILLIN-POT CLAVULANATE 48273590941 No Longer Active Ursula Moser APRN Active PROAIR HFA 108 (90 BASE) MCG/ACT AERS 2 puff q 4-6 hrs PRN 01/24 ALBUTEROL SULFATE 59633023790 No Longer Active Kalpesh Dong MD Active PREDNISONE 20 MG TAB 2 tabs daily for 3 days, 1 t ab daily for 3 days, 1/2 tab daily for 2 days PREDNISONE 59057358660 No Longer Active Abdirahman Rios MD Active KEFLEX 500 MG CAP 1 po qid CEPHALEXIN 390823927 20 No Longer Active Kalpesh Dong MD Active PERCOCET 5-325 MG TAB 1 every 6 hours as needed OXYCODONE-ACETAMINOPHEN 40381316337 No Longer Active Shola MCGILL Active LC-5 LIDOCAINE 5 % CREA apply 1 time daily to affected area 2013 LIDOCAINE (ANORECTAL) 66568615144 No Longer Active Jillina F razell PROFESSIONAL BUILDER Active HYDROCODONE-ACETAMINOPHEN 10-325 MG TABS 1 by mouth ev chaka 8 hours as needed for pain HYDROCODONE-ACETAMINOPHEN 43604234573 No Longer Active Jillina Frazell PROFESSIONAL BUILDER Active LORATADINE 10 MG TABS 1 tablet by mouth daily L ORATADINE 67187011266 No Longer Active Jillina Frazell PROFESSIONAL BUILDER Active DIFLUCAN 150 MG TAB 1 qODay x 2 doses FLUCONAZO LE 68914861523 No Longer Active Jillina Frazell PROFESSIONAL BUILDER Active CYCLOBENZAPRINE HCL 10 MG TABS 1/2 - 1 tab PO tid PRN back p ain, muscle spasm CYCLOBENZAPRINE HCL 61511921472 No Longer Active Karen siri Frazell PROFESSIONAL BUILDER Active AUGMENTIN 875-125 MG TAB 1 tab by mouth twice daily with food 20 22/05/07 AMOXICILLIN-POT CLAVULANATE 50920984864 No Longer Active Loida Rios MD Active MOBIC 15 MG TABS 1 tab daily MELOXICAM 596624572 14 No Longer Active Abdirahman Rios MD Active PERCOCET 7.5-325 MG TABS 1 PO tid PRN pain OXYCODONE-ACETAMINOPHEN 82928831381 No Longer Active Abdirahman Rios MD Active LIDODERM 5 % PTCH One patch to painful area RI N. On for 12 hrs, off for 12 hrs. LIDOCAINE 51237799935 No Longer Active Abdirahman Rios MD Active PERCOCET 7.5-325 MG TABS 1 PO q 8 hrs PRN pain OXYCODONE-ACETAMINOPHEN 51326353029 No Longer Active Shola MCGILL Active HYDROCODONE-ACETAMINOPHEN 7.5-325 MG TABS 1 by mouth e very 6 hours as needed for pain HYDROCODONE-ACETAMINOPHEN 01864488209 No Longer Active Good Julian MD Active CLINDAMYCIN HCL 300 MG CAPS 1 po QID x 7 days CLINDAMYCIN HCL 55628156386 No Longer Active Abdirahman Rios MD Activ e BACTRIM DS 800-160 MG TABS 1 po BID x 7 days 5 SULFAMETHOXAZOLE-TRIMETHOPRIM 31465710431 No Longer Active Abdirahman Rios MD Active ENDOCET 10-325 MG TABS 1 q 6 hr prn OXYCODONE-ACETAMINOPHEN 26177866639 No Longer Active Abdirahman Rios MD Active IBUPROFEN 800 MG TABS 1 tid prn IBUPROFEN 270587 59771 No Longer Active Abdirahman Rios MD Active BACTRIM DS 800-160 MG TABS by mouth twice a day 11/05 SULFAMETHOXAZOLE-TRIMETHOPRIM 31717760709 No Longer Active Good Julian MD Active HYDROCODONE-ACETAMINOPHEN 7.5-325 MG TABS 1 four times a day as needed for pain HYDROCODONE-ACETAMINOPHEN 89906954174 No Longer Activ e Good Julian MD Active KEFLEX 500 MG CAP 1 tab po tid CEPHALEXIN 467516 31565 No Longer Active Hira Moser APRN Active IBUPROFEN 800 MG TAB 1 pill three times daily as needed for pain IBUPROFEN 00316537508 No Longer Active Kalpesh Dong MD Active PROMETHAZINE-CODEINE 6.25-10 MG/5ML SYRP 1 tsp every 6 hrs prn c ough PROMETHAZINE-CODEINE 69516257966 No Longer Active Kalpesh Carr Active HYDROCODONE-ACETAMINOPHEN 5-325 MG TABS 1 tab by mouth every 6 hours as needed HYDROCODONE-ACETAMINOPHEN 35905375494 No Longer Activ e Shola MCGILL Active CEPHALEXIN 500 MG CAPS 1 PO bid x 7 days CEPHAL EXIN 58447550862 No Longer Active Shola MCGILL Active BACTRIM DS 800-160 MG TAB 1 tab by mouth twice daily 2 TRIMETHOPRIM-SULFAMETHOXAZOLE 97718836149 No Longer Active Kalpesh Dong MD Active HYDROCODONE-ACETAMINOPHEN 5-325 MG TABS 1 PO tid PRN pain 5 HYDROCODONE-ACETAMINOPHEN 43970921023 No Longer Active Abhinav Galvan MD Active IMPLANON 68 MG IMPL IMPLANTED IN LEFT ARM ETONO GESTREL 04321088269 No Longer Active Hira Moser APRN Active AMOXICILLIN 500 MG TABS 2 tabs PO bid x 10 d AM OXICILLIN 63065443840 No Longer Active Kalpesh Dong MD Active LEVAQUIN 500 MG TABS 1 PO q day x 7 days LEVOFL OXACIN 97156602050 No Longer Active Shola MCGILL Active AMITRIPTYLINE HCL 25 MG TAB 1 tab by mouth daily 60 minutes before bedtime AMITRIPTYLINE HCL 64521295003 No Longer Active Shola MCGILL Active LORTAB 5 5-500 MG TABS 1/2 to 1 tablet by mouth go ry 6 hours as needed for pain HYDROCODONE-ACETAMINOPHEN 46355304982 No Longer Active Shola MCGILL Active CEPHALEXIN 500 MG TABS Take one by mouth four times daily, morning, noon, early evening and bedtime. CEPHALEXIN 83809897585 No Long er Active Hira Moser APRN Active TYLENOL/CODEINE #3 300-30 MG TAB 1-2 po q6hr PRN Pain ACETAMINOPHEN-CODEINE 99351125008 No Longer Active Edilberto Marino DO Active PRISTIQ 50 MG [id number] 1 po qd DESVENLAFAXI NE SUCCINATE 71957577366 No Longer Active Edilberto Marino DO Active PENICILLIN V POTASSIUM 500 MG TAB 1 four times a day 2 PENICILLIN V POTASSIUM 23159722925 No Longer Active Edilberto Marino DO Active DOXYCYCLINE HYCLATE 100 MG CAPS Take one (1) tablet by mouth twice a day DOXYCYCLINE HYCLATE 94800299063 No Longer Active Ronnie Galvan MD Active HYDROCODONE-ACETAMINOPHEN 5-325 MG TABS 1 po q 6hr PRN Pain 2011 HYDROCODONE-ACETAMINOPHEN 46263415920 No Longer Active Patri joan Perez RN Active BACTRIM DS 800-160 MG TAB 1 tab by mouth twice daily 2 TRIMETHOPRIM-SULFAMETHOXAZOLE 76204611862 No Longer Active Kalpesh Dong MD Active LORTAB 5 5-500 MG TABS 1/2 to 1 tablet by mouth go ry 4 hours as needed for pain HYDROCODONE-ACETAMINOPHEN 38622419354 No Longer Active Kalpesh Dong MD Active GENERESS FE 0.8-25 MG-MCG CHEW Take one by mouth daily NORETHIN-ETH ESTRADIOL-FE 24619997439 No Longer Active Kalpesh Dong MD Active HYDROCODONE-ACETAMINOPHEN 7.5-500 MG TABS 1-2 every 4 hours as needed HYDROCODONE-ACETAMINOPHEN 73363403252 No Longer Activ e Kalpesh Dong MD Active FERROUS SULFATE 325 (65 FE) MG TABS 1 tablet by mouth twice yung y FERROUS SULFATE 01396579601 No Longer Active Kalpesh Dong MD Active IBUPROFEN 600 MG TAB 1 po q6-8hr PRN IBUPROFEN 84682094836 No Longer Active Kalpesh Dong MD Active SPIRONOLACTONE 25 MG TAB 1 tablet by mouth daily 01/22 SPIRONOLACTONE 72284933369 No Longer Active Kalpesh Dong MD Acti ve HYDROCODONE-ACETAMINOPHEN 7.5-325 MG TABS 1 po QID PRN Pain 2011 HYDROCODONE-ACETAMINOPHEN 34271459710 No Longer Active Kalpesh Dong MD Active CLINDAMYCIN HCL 300 MG CAPS 1 po q6hr x 7 days CLINDAMYCIN HCL 01717414126 No Longer Active Edilberto Marino DO Active PREDNISONE 20 MG TAB 2 tabs daily for 4 days, 1 t ab daily for 4 days, 1/2 tab daily for 4 days PREDNISONE 07999767886 No Longer Active Edilberto Marino DO Active PERCOCET 5-325 MG TABS 1 tablet by mouth every 6 hours as ne eded for pain OXYCODONE-ACETAMINOPHEN 53234179786 No Longer Active Abdirahman Rios MD Active VITAMINS TABS Take one by mouth daily MV & MIN W/FE-FA TABS 19773147540 No Longer Active Abdirahman Rios MD Active LUIS 3-0.02 MG TABS 1 tablet by mouth daily as directed DROSPIRENONE-ETHINYL ESTRADIOL 68430198062 No Longer Active Abdirahman Rios MD Active LORATADINE 10 MG TABS 1 tablet by mouth daily L ORATADINE 24416788979 No Longer Active Kalpesh Dong MD Active HYDROCODONE-ACETAMINOPHEN 5-325 MG TABS 1 po q 6hr PRN Pain 2010 HYDROCODONE-ACETAMINOPHEN 51748556446 No Longer Active Edilberto Marino DO Active BACTRIM DS 800-160 MG TAB 1 tab by mouth twice daily 2 TRIMETHOPRIM-SULFAMETHOXAZOLE 17997049044 No Longer Active Abdirahman Rios MD Active 28-0.8 MG TABS Take one by mouth daily 09/20 VIT-FE FUMARATE-FA 03743102751 No Longer Active Abdirahman Rios MD Active CIPRO 500 MG TAB 1 tablet by mouth twice daily CIPROFLOXACIN HCL 38070700698 No Longer Active Abdirahman Rios MD Active BENADRYL 25 MG CAP 1 po q8hr PRN Congestion DIPHENHYDRAMINE HCL 39529628985 No Longer Active Abdirahman Rios MD Active ZOLOFT 50 MG TAB 1 po qd SERTRALINE HCL 858372 39043 No Longer Active Abdirahman Rios MD Active AMOXICILLIN 875 MG TABS 1 tab by mouth twice daily 201 08/09/13 AMOXICILLIN 16114890756 No Longer Active Abdirahman Rios MD Activ e AMOXICILLIN 875 MG TABS 1 tab by mouth twice daily 201 07/19/27 AMOXICILLIN 27020714218 No Longer Active Abdirahman Rios MD Activ e BACTRIM DS 800-160 MG TAB 2 tab by mouth twice daily 2 TRIMETHOPRIM-SULFAMETHOXAZOLE 01469249691 No Longer Active Abdirahman Rios MD Active KEFLEX 500 MG CAP 1 po tid x 10 days CEPHALEXIN 26131089946 No Longer Active Abdirahman Rios MD Active AMOXICILLIN 875 MG TABS 1 tab by mouth twice daily 201 07/18/07 AMOXICILLIN 84952242737 No Longer Active Abdirahman Rios MD Activ e BACTRIM DS 800-160 MG TAB 2 tab by mouth twice daily 2 BACTRIM DS 800-160 MG TAB 175784 TRIMETHOPRIM-SULFAMETHOXAZOLE Inactive ZOLOFT 50 MG TAB 1 po qd ZOLOFT 50 MG TAB 3129 41 SERTRALINE HCL Inactive BENADRYL 25 MG CAP 1 po q8hr PRN Congestion BENADRYL 25 MG CAP DIPHENHYDRAMINE HCL Inactive 28-0.8 MG TABS Take one by mouth daily 09/20 28-0.8 MG TABS VIT-FE FUMARATE-FA Inactive HYDROCODONE-ACETAMINOPHEN 5-325 MG TABS 1 po q 6hr PRN Pain 2010 HYDROCODONE-ACETAMINOPHEN 5-325 MG TABS 151819 HYDROCODONE-ACETAMINOPHEN Inactive LORATADINE 10 MG TABS 1 tablet by mouth daily LORATADINE 10 MG TABS 589502 LORATADINE Inactive LUIS 3-0.02 MG TABS 1 tablet by mouth daily as directed LUIS 3-0.02 MG TABS 704845 DROSPIRENONE-ETHINYL ESTRADIOL Inactive VITAMINS TABS Take one by mouth daily VITAMINS TABS MV & MIN W/FE-FA TABS Inactive PERCOCET 5-325 MG TABS 1 tablet by mouth every 6 hours as ne eded for pain PERCOCET 5-325 MG TABS 4317764 OXYCODONE-ACETAMIN OPHEN Inactive PREDNISONE 20 MG TAB 2 tabs daily for 4 days, 1 t ab daily for 4 days, 1/2 tab daily for 4 days PREDNISONE 20 MG TAB 633664 PREDNISON E Inactive CLINDAMYCIN HCL 300 MG CAPS 1 po q6hr x 7 days CLINDAMYCIN HCL 300 MG CAPS 987784 CLINDAMYCIN HCL Inactive HYDROCODONE-ACETAMINOPHEN 7.5-325 MG TABS 1 po QID PRN Pain 2011 HYDROCODONE-ACETAMINOPHEN 7.5-325 MG TABS 983012 HYDROCODONE-ACETAMINOPHEN Inactive SPIRONOLACTONE 25 MG TAB 1 tablet by mouth daily 01/22 SPIRONOLACTONE 25 MG TAB 856452 SPIRONOLACTONE Inactive IBUPROFEN 600 MG TAB 1 po q6-8hr PRN IBUPROFEN 600 MG TAB 676448 IBUPROFEN Inactive FERROUS SULFATE 325 (65 FE) MG TABS 1 tablet by mouth twice yung y FERROUS SULFATE 325 (65 FE) MG TABS 864267 FERROUS SULF ATE Inactive HYDROCODONE-ACETAMINOPHEN 7.5-500 MG TABS 1-2 every 4 hours as needed HYDROCODONE-ACETAMINOPHEN 7.5-500 MG TABS HYDROCODONE-ACETAMINOPHEN Inactive GENERESS FE 0.8-25 MG-MCG CHEW Take one by mouth daily GENERESS FE 0.8-25 MG-MCG CHEW [id number] NORETHIN-ETH ESTRADIOL-FE Inactive LORTAB 5 5-500 MG TABS 1/2 to 1 tablet by mouth go ry 4 hours as needed for pain LORTAB 5 5-500 MG TABS HYDROCODONE-A CETAMINOPHEN Inactive BACTRIM DS 800-160 MG TAB 1 tab by mouth twice daily 2 BACTRIM DS 800-160 MG TAB 983304 TRIMETHOPRIM-SULFAMETHOXAZOLE Inac tive HYDROCODONE-ACETAMINOPHEN 5-325 MG TABS 1 po q 6hr PRN Pain 2011 HYDROCODONE-ACETAMINOPHEN 5-325 MG TABS 693526 HYDROCODONE-ACETAMINOPHEN Inactive DOXYCYCLINE HYCLATE 100 MG CAPS Take one (1) tablet by mouth twice a day DOXYCYCLINE HYCLATE 100 MG CAPS 4705519 DOXYCYCLINE HYCLATE Inactive PENICILLIN V POTASSIUM 500 MG TAB 1 four times a day 2 PENICILLIN V POTASSIUM 500 MG TAB 486752 PENICILLIN V POTASSIUM [place] ctive PRISTIQ 50 MG [id number] 1 po qd PRISTIQ 50 MG [id number] DESVENLAFAXINE SUCCINATE Inactive TYLENOL/CODEINE #3 300-30 MG TAB 1-2 po q6hr PRN Pain TYLENOL/CODEINE #3 300-30 MG TAB 492099 ACETAMINOPHEN-CODEINE Inact krishna CEPHALEXIN 500 MG TABS Take one by mouth four times daily, morning, noon, early evening and bedtime. CEPHALEXIN 500 MG TABS 887538 CEPHALEXIN Inactive LORTAB 5 5-500 MG TABS 1/2 to 1 tablet by mouth go ry 6 hours as needed for pain LORTAB 5 5-500 MG TABS HYDROCODONE-A CETAMINOPHEN Inactive AMITRIPTYLINE HCL 25 MG TAB 1 tab by mouth daily 60 minutes before bedtime AMITRIPTYLINE HCL 25 MG TAB 869525 AMITRIPTYLINE HCL Inactive AMOXICILLIN 500 MG TABS 2 tabs PO bid x 10 d 7 AMOXICILLIN 500 MG TABS 301768 AMOXICILLIN Inactive IMPLANON 68 MG IMPL IMPLANTED IN LEFT ARM IMPLANON 68 MG IMPL ETONOGESTREL Inactive HYDROCODONE-ACETAMINOPHEN 5-325 MG TABS 1 PO tid PRN pain 5 HYDROCODONE-ACETAMINOPHEN 5-325 MG TABS 785199 HYDROCODONE-ACETAMIN OPHEN Inactive BACTRIM DS 800-160 MG TAB 1 tab by mouth twice daily 2 BACTRIM DS 800-160 MG TAB 516954 TRIMETHOPRIM-SULFAMETHOXAZOLE Inac tive CEPHALEXIN 500 MG CAPS 1 PO bid x 7 days CEPHALEXIN 500 MG CAPS 146392 CEPHALEXIN Inactive HYDROCODONE-ACETAMINOPHEN 5-325 MG TABS 1 tab by mouth every 6 hours as needed HYDROCODONE-ACETAMINOPHEN 5-325 MG TABS 269846 HYDROCODONE-ACETAMINOPHEN Inactive PROMETHAZINE-CODEINE 6.25-10 MG/5ML SYRP 1 tsp every 6 hrs prn c ough PROMETHAZINE-CODEINE 6.25-10 MG/5ML SYRP 898379 PROMETH AZINE-CODEINE Inactive IBUPROFEN 800 MG TAB 1 pill three times daily as needed for pain IBUPROFEN 800 MG TAB 309925 IBUPROFEN Inactive KEFLEX 500 MG CAP 1 tab po tid KEFLEX 500 MG CAP 964246 CEPHALEXIN Inactive HYDROCODONE-ACETAMINOPHEN 7.5-325 MG TABS 1 four times a day as needed for pain HYDROCODONE-ACETAMINOPHEN 7.5-325 MG TABS 477569 HYDROCODONE-ACETAMINOPHEN Inactive BACTRIM DS 800-160 MG TABS by mouth twice a day 11/05 BACTRIM DS 800-160 MG TABS 709806 SULFAMETHOXAZOLE-TRIMETHOPRIM Inactive IBUPROFEN 800 MG TABS 1 tid prn IBUPROFEN 800 MG TABS 329527 IBUPROFEN Inactive ENDOCET 10-325 MG TABS 1 q 6 hr prn ENDOC ET 10-325 MG TABS 5819409 OXYCODONE-ACETAMINOPHEN Inactive HYDROCODONE-ACETAMINOPHEN 7.5-325 MG TABS 1 by mouth e very 6 hours as needed for pain HYDROCODONE-ACETAMINOPHEN 7.5-325 MG TABS 059674 HYDROCODONE-ACETAMINOPHEN Inactive PERCOCET 7.5-325 MG TABS 1 PO q 8 hrs PRN pain PERCOCET 7.5-325 MG TABS 5642202 OXYCODONE-ACETAMINOPHEN Inactive LIDODERM 5 % PTCH One patch to painful area RI N. On for 12 hrs, off for 12 hrs. LIDODERM 5 % MERGED WITH [facility] 2922872 LIDOCAINE Inactiv e PERCOCET 7.5-325 MG TABS 1 PO tid PRN pain PERCOCET 7.5- 325 MG TABS 5179359 OXYCODONE-ACETAMINOPHEN Inactive MOBIC 15 MG TABS 1 tab daily MOBIC 15 MG TABS 15 2695 MELOXICAM Inactive CYCLOBENZAPRINE HCL 10 MG TABS 1/2 - 1 tab PO tid PRN back p ain, muscle spasm CYCLOBENZAPRINE HCL 10 MG TABS 460370 CYCLOBENZA JOSEPH HCL Inactive LORATADINE 10 MG TABS 1 tablet by mouth daily LORATADINE 10 MG TABS 570269 LORATADINE Inactive HYDROCODONE-ACETAMINOPHEN 10-325 MG TABS 1 by mouth ev chaka 8 hours as needed for pain HYDROCODONE-ACETAMINOPHEN 10-325 MG TABS 718150 HYDROCODONE-ACETAMINOPHEN Inactive LC-5 LIDOCAINE 5 % CREA apply 1 time daily to affected area 2013 LC-5 LIDOCAINE 5 % CREA 7788998 LIDOCAINE (ANORECTAL) In active PERCOCET 5-325 MG TAB 1 every 6 hours as needed PERCOCET 5-325 MG TAB 8662327 OXYCODONE-ACETAMINOPHEN Inactive KEFLEX 500 MG CAP 1 po qid KEFLEX 500 MG CAP 30 9114 CEPHALEXIN Inactive PROAIR HFA 108 (90 BASE) MCG/ACT AERS 2 puff q 4-6 hrs PRN 01/24 PROAIR HFA 108 (90 BASE) MCG/ACT AERS ALBUTEROL SULFATE Inactive PERCOCET 10-325 MG ORAL TABS 1 every 4 hours as needed PERCOCET 10-325 MG ORAL TABS 8883656 OXYCODONE-ACETAMINOPHEN Inactiv e EMLA 2.5-2.5 % EXT CREA apply to skin lesion q 6 hours, prn 2014 EMLA 2.5-2.5 % EXT CREA LIDOCAINE-PRILOCAINE Siri ctive PERCOCET 10-325 MG TABS 1 tab by mouth every 6 hours , use sparingly for severe pain PERCOCET 10-325 MG TABS [id number] OXYCODONE-ACETAMINOPHEN Inactive GLUCOPHAGE 500 MG ORAL TABS one by mouth 3 times a day GLUCOPHAGE 500 MG ORAL TABS [id number] METFORMIN HCL Inactive HYDROCODONE-ACETAMINOPHEN 5-325 MG TABS 1 po q6hr PRN pain 06/30 HYDROCODONE-ACETAMINOPHEN 5-325 MG TABS [id number] HYDROCOD ONE-ACETAMINOPHEN Inactive PERCOCET 5-325 MG TAB 1 tab po q 6 -8 hours, prn for severe pain PERCOCET 5-325 MG TAB [id number] OXYCODONE-ACETAMINOPHEN In active PERCOCET 5-325 MG ORAL TABS 1 every 6 hours as needed PERCOCET 5-325 MG ORAL TABS [id number] OXYCODONE-ACETAMINOPHEN Inactive DICLOFENAC SODIUM 50 MG TBEC 1 tablet by mouth four times da tom PRN Pain DICLOFENAC SODIUM 50 MG TBEC [id number] DICLOFENAC S ODIUM Inactive AUGMENTIN 500-125 MG ORAL TABS 1 by mouth twice a day AUGMENTIN 500-125 MG ORAL TABS [id number] AMOXICILLIN-POT CLAVULANATE I nactive HYDROCODONE-ACETAMINOPHEN 5-325 MG TABS 1 po q6hr PRN Pain 03/09 HYDROCODONE-ACETAMINOPHEN 5-325 MG TABS [id number] HYDROCOD ONE-ACETAMINOPHEN Inactive CYCLOBENZAPRINE HCL 10 MG TABS 1 tablet by mouth three times daily as needed for muscle spasm/pain CYCLOBENZAPRINE HCL 10 MG TABS [id number] CYCLOBENZAPRINE HCL Inactive SPRINTEC 28 0.25-35 MG-MCG TABS 1 pill by mouth daily for bi rth control SPRINTEC 28 0.25-35 MG-MCG TABS [id number] NORGESTIMATE-ETH ESTRADIOL Inactive PERCOCET 5-325 MG TAB 1 tab po q 6 hours, prn severe pain 1 PERCOCET 5-325 MG TAB [id number] OXYCODONE-ACETAMINOPHEN Inactive IBUPROFEN 600 MG ORAL TABS 1 by mouth twice a day 2014 IBUPROFEN 600 MG ORAL TABS [id number] IBUPROFEN Inactive CYMBALTA 30 MG CPEP 1 cap by mouth daily CYMBALTA 30 MG CPEP [id number] DULOXETINE HCL Inactive HYDROCODONE-ACETAMINOPHEN 5-325 MG TABS 1 po q6hr PRN Pain 04/09 HYDROCODONE-ACETAMINOPHEN 5-325 MG TABS [id number] HYDROCOD ONE-ACETAMINOPHEN Inactive TRAZODONE HCL 100 MG TAB 0.5 to 1 po qHS PRN Insomnia TRAZODONE HCL 100 MG TAB 382651 TRAZODONE HCL Inactive ALPRAZOLAM 0.5 MG TABS 1 po BID PRN Anxiety ALPRAZOLAM 0.5 MG TABS 557137 ALPRAZOLAM Inactive ENWKCDSCLM-OSR-HQPERDKU 50-325-40 MG ORAL CAPS 1-2 po TID RI N Headache ZFPTLPSTTM-UQA-LETCKHCH 50-325-40 MG ORAL CAPS 2 69971 BBSWJREKIF-NSDPSFG-[id number] Inactive HYDROCODONE-ACETAMINOPHEN 5-325 MG TABS 1 po TID PRN Pain 9 HYDROCODONE-ACETAMINOPHEN 5-325 MG TABS 734120 HYDROCODONE-ACETAMIN OPHEN Inactive PERCOCET 10-325 MG TABS 1 tablet every 8 hours as needed for antonia n PERCOCET 10-325 MG TABS 4000223 OXYCODONE-ACETAMINOPHEN Inactive ONDANSETRON 4 MG TBDP 1 q4h PRN nausea ON DANSETRON 4 MG TBDP 733141 ONDANSETRON Inactive VIIBRYD 10 & 20 & 40 MG KIT 1 po qd as directed 07/24 VIIBRYD 10 & 20 & 40 MG KIT VILAZODONE HCL Inactive DICLOFENAC SODIUM 50 MG TBEC 1 tablet by mouth four times da tom PRN Pain DICLOFENAC SODIUM 50 MG TBEC 237081 DICLOFENAC S ODIUM Inactive PERCOCET 10-325 MG ORAL TABS one every 6 hours prn pain PERCOCET 10-325 MG ORAL TABS 6611083 OXYCODONE-ACETAMINOPHEN Inactiv e PERCOCET 10-325 MG ORAL TABS take 1 tab by mouth q 4hours as needed for pain PERCOCET 10-325 MG ORAL TABS 2130895 OXYCODONE-ACETAMINOPHEN Inactive FLONASE ALLERGY RELIEF 50 MCG/ACT NASAL SUSP One spray in each nostril twice a day. FLONASE ALLERGY RELIEF 50 MCG/ACT NASAL S [facility] [id number] FLUTICASONE PROPIONATE Inactive AUGMENTIN 875-125 MG TAB 1 tab by mouth twice daily with food 20 23/05/16 AUGMENTIN 875-125 MG TAB 551495 AMOXICILLIN-POT [place] Inactive HYDROCODONE-ACETAMINOPHEN 5-325 MG TABS 1 tab by mouth every 6 hours as needed for pain HYDROCODONE-ACETAMINOPHEN 5-325 MG TABS 8 20410 HYDROCODONE-ACETAMINOPHEN Inactive PERCOCET 10-325 MG TABS 1 tablet every 8 hours as needed for antonia n PERCOCET 10-325 MG TABS 1117265 OXYCODONE-ACETAMINOPHEN Inactive LC-4 LIDOCAINE 4 % EXT CREA apply q 6 hours, prn 08/03 LC-4 LIDOCAINE 4 % EXT CREA 7643972 LIDOCAINE Inactive PROMETHAZINE HCL 25 MG TABS 1 four times a day as needed for nausea/vomiting PROMETHAZINE HCL 25 MG TABS 223579 PROMETHAZINE HCL Inactive LC-4 LIDOCAINE 4 % EXT CREA apply to painful area every 12 h ours or as needed LC-4 LIDOCAINE 4 % EXT CREA 1574544 LIDOCAINE Inactive PERCOCET 10-325 MG ORAL TABS 1 every 4 hous as needed PERCOCET 10-325 MG ORAL TABS 8364964 OXYCODONE-ACETAMINOPHEN Inactiv e GLYDO 2 % EXT GEL apply to painful areas as needed 201 12/10/13 GLYDO 2 % EXT GEL 9354788 LIDOCAINE HCL Inactive VGUTKWEHHD-SATU-QOMSZXTF 50-325-40 MG ORAL TABS 1 po TID PRN Headaches JFIVPWABCH-FQHW-MLGQAGPG 50-325-40 MG ORAL TABS 081433 OOETGJSZYZ-RDIH-ZXZTRAKL Inactive AMOXICILLIN 875 MG TABS 1 tab by mouth twice daily 201 07/18/07 AMOXICILLIN 875 MG TABS 724087 AMOXICILLIN Inactive KEFLEX 500 MG CAP 1 po tid x 10 days KEFLEX 500 MG CAP 352066 CEPHALEXIN Inactive AMOXICILLIN 875 MG TABS 1 tab by mouth twice daily 201 07/19/27 AMOXICILLIN 875 MG TABS 308620 AMOXICILLIN Inactive AMOXICILLIN 875 MG TABS 1 tab by mouth twice daily 201 08/09/13 AMOXICILLIN 875 MG TABS 168136 AMOXICILLIN Inactive CIPRO 500 MG TAB 1 tablet by mouth twice daily CIPRO 500 MG TAB 627852 CIPROFLOXACIN HCL Inactive BACTRIM DS 800-160 MG TAB 1 tab by mouth twice daily 2 BACTRIM DS 800-160 MG TAB 717414 TRIMETHOPRIM-SULFAMETHOXAZOLE Inac tive LEVAQUIN 500 MG TABS 1 PO q day x 7 days LEVAQUIN 500 MG TABS 444574 LEVOFLOXACIN Inactive CLINDAMYCIN HCL 300 MG CAPS 1 po QID x 7 days CLINDAMYCIN HCL 300 MG CAPS 759791 CLINDAMYCIN HCL Inactive AUGMENTIN 875-125 MG TAB 1 tab by mouth twice daily with food 20 22/05/07 AUGMENTIN 875-125 MG TAB 520067 AMOXICILLIN-POT [place] Inactive DIFLUCAN 150 MG TAB 1 qODay x 2 doses DIFLUCAN 150 MG TAB 897612 FLUCONAZOLE Inactive PREDNISONE 20 MG TAB 2 tabs daily for 3 days, 1 t ab daily for 3 days, 1/2 tab daily for 2 days PREDNISONE 20 MG TAB 555917 PREDNISON E Inactive AUGMENTIN 875-125 MG TAB 1 tab by mouth twice daily with food 20 21/10/13 AUGMENTIN 875-125 MG TAB 355808 AMOXICILLIN-POT [place] Inactive HYDROCODONE-ACETAMINOPHEN 5-325 MG TABS 1 tab by mouth every 6 hours as needed PRN Pain HYDROCODONE-ACETAMINOPHEN 5-325 MG TABS 8 07308 HYDROCODONE-ACETAMINOPHEN Inactive PROMETHAZINE HCL 25 MG TABS 1 four times a day as needed for nausea/vomiting PROMETHAZINE HCL 25 MG TABS 863178 PROMETHAZINE HCL Inactive AMOXICILLIN 500 MG CAPS 2 po BID x 10 days AMOXICILLIN 500 MG CAPS 431356 AMOXICILLIN Inactive Advance Directives Directive Description Start Date PERMISSION TO SHARE Immunizations Vaccine Administration Date Value Standard Alf cription Seasonal influenza vaccine, injectable, containing preservative, for > 3 years old (Afluria, FluLaval, Fluzone, Fluvirin, Fluarix, Agriflu(>= 18 yo)) Fluzone (>3 yrs.) [[id number]] Influenza, seasonal, inject able Seasonal influenza vaccine, injectable, preservative free, for > 3 years old (Afluria, FluLaval, Fluzone, Fluvirin, Fluarix, Agriflu(>= 18 yo)) Fluzone preservative free (>3 yrs.) [[id number]] Influenza, seasonal, injectable, preservative free Seasonal influenza vaccine, injectable, containing preservative, for > 3 years old (Afluria, FluLaval, Fluzone, Fluvirin, Fluarix, Agriflu(>= 18 yo)) Fluzone (>3 yrs.) [[id number]] Influenza, seasonal, inject able Seasonal influenza vaccine, injectable, containing preservative, for > 3 years old (Afluria, FluLaval, Fluzone, Fluvirin, Fluarix, Agriflu(>= 18 yo)) Fluzone (>3 yrs.) [[id number]] Influenza, seasonal, inject able dT (Diphtheria and [...] - 3141-9 232 [lb_av] Weigh t Measured Encounters Code Encounter Date Provider Facility CPT-80138 Level 3 Est. Patient 16:33:24 CDT Kalpesh goins MD [facility] CPT-24605 Level 3 Est. Patient 08:29:37 CDT Hira muniz [facility] CPT-35108 Level 3 Est. Patient 10:28:25 CDT Hira muniz [facility] CPT-34602 Level 4 Est. Patient 16:38:26 CONSUMER RECRUITER Abdirahman Rios MD [facility] CPT-01513 Level 3 Est. Patient 05:31:41 CONSUMER RECRUITER Kalpesh goins MD [facility]-61287 Level 3 Est. Patient 11:22:02 CONSUMER RECRUITER Matthewelias Alessandra muniz [facility] CPT-71237 Level 3 Est. Patient 21:00:18 CONSUMER RECRUITER Rajni Oconnor jagjit [facility] CPT-65061 Level 3 Est. Patient 14:15:00 CONSUMER RECRUITER Kalpesh goins MD [facility] CPT-62439 Level 2 Est. Patient 19:57:52 CONSUMER RECRUITER Rajni Anastasia danielson [facility] CPT-12178 Level 3 Est. Patient 16:58:40 CONSUMER RECRUITER Bj funes MD [facility]-59572 Level 3 Est. Patient 08:51:33 CDT Kalpesh goins MD [facility] CPT-48727 Level 4 Est. Patient 14:14:53 CDT Abdirahman Rios MD [facility] CPT-20672 Level 3 Est. Patient 15:47:40 CDT Kalpesh goins MD [facility]-40526 Level 3 Est. Patient 10:57:26 CDT Abdirahman Rios MD [facility] CPT-05583 Level 3 Est. Patient 14:29:53 CDT Abhinav Galvan MD [facility] CPT-10245 Level 2 Est. Patient 16:33:01 CDT Kalpesh goins MD [facility]-11977 Level 4 Est. Patient 16:44:56 CDT Abdirahman Rios MD [facility] CPT-07738 Level 2 Est. Patient 07:49:32 CDT Kalpesh goins MD [facility] CPT-51195 Level 3 New Patient 15:47:11 CONSUMER RECRUITER Bj huber MD [facility]-92624 Level 4 Est. Patient 14:37:38 CONSUMER RECRUITER Abdirahman Rios MD [facility] CPT-96915 Level 2 Est. Patient 13:32:17 CONSUMER RECRUITER Kalpesh goins MD [facility]-85346 Level 3 Est. Patient 17:32:57 CONSUMER RECRUITER Edilberto tiwari [facility] CPT-89735 Level 3 Est. Patient 17:22:33 CONSUMER RECRUITER Edilberto tiwari [facility] CPT-85509 Level 2 Est. Patient 16:57:09 CONSUMER RECRUITER Kalpesh goins MD [facility]-18442 Level 3 Est. Patient 14:03:08 CONSUMER RECRUITER Abdirahman Rios MD [facility]-48879 Level 3 Est. Patient 18:12:34 CDT Shola Wright [facility] CPT-45470 Level 3 Est. Patient 19:34:46 CDT Shola Wright [facility] CPT-85451 Level 3 Est. Patient 14:19:37 CDT Abdirahman Rios MD [facility] CPT-01059 Level 3 Est. Patient 14:11:58 CDT Kalpesh goins MD [facility]-19935 Level 3 Est. Patient 16:50:00 CDT Michelle MERCADO [facility] CPT-39348 Level 3 Est. Patient 17:11:32 CONSUMER RECRUITER Brandie bates MD PhD [facility] CPT-92847 Level 3 Est. Patient 16:31:47 CONSUMER RECRUITER Shola Wright [facility] CPT-24840 Level 3 Est. Patient 17:51:10 CONSUMER RECRUITER Abhinav Galvan MD [facility] CPT-81624 Level 4 Est. Patient 12:54:56 CONSUMER RECRUITER Kalpesh goins MD [facility] CPT-92747 Level 4 Est. Patient 12:53:56 CONSUMER RECRUITER Kalpesh goins MD [facility] CPT-28058 Level 3 Est. Patient 17:56:58 CDT Shola Wright [facility] CPT-22480 Level 3 Est. Patient 14:26:20 CDT Janak butcher [facility] CPT-81262 Level 3 Est. Patient 09:38:41 CDT Shola Keesha Wright [facility] CPT-11395 Level 3 Est. Patient 14:45:26 CDT Edilberto tiwari [facility] CPT-61739 Level 3 Est. Patient 10:51:33 CDT Hira muniz [facility] CPT-40784 Level 3 Est. Patient 11:57:55 CONSUMER RECRUITER Shola Thao Adriana [facility] CPT-03457 Level 3 Est. Patient 09:53:33 CONSUMER RECRUITER Edilberto tiwari [facility] CPT-91111 Level 3 Est. Patient 14:42:54 CONSUMER RECRUITER Abhinav Galvan MD [facility]-57118 Level 3 Est. Patient 15:10:02 CDT Janak butcher [facility] CPT-81110 Level 3 Est. Patient 15:20:20 CDT Theo dennis MD [facility] CPT-99487 Level 2 Est. Patient 14:08:57 CDT Kalpesh goins MD [facility] CPT-10709 Level 3 Est. Patient 13:56:19 CDT Abdirahman Rios MD [facility]-19414 Level 3 Est. Patient 13:59:37 CDT Abdirahman Rios MD [facility] CPT-33864 Level 2 Est. Patient 14:44:59 CDT Kalpesh goins MD [facility] CPT-58326 Level 3 Est. Patient 06:06:23 CDT Edilberto tiwari DO [facility] CPT-67058 Level 3 Est. Patient 15:23:54 CDT Abdirahman Rios MD [facility] CPT-29910 Level 3 Est. Patient 15:43:49 CDT Abdirahman Rios MD [facility] CPT-64663 Level 3 Est. Patient 12:46:47 CONSUMER RECRUITER Abdirahman Rios MD [facility] CPT-48870 Level 3 Est. Patient 08:13:35 CONSUMER RECRUITER Abdirahman Rios MD [facility] CPT-49208 Level 2 Est. Patient 09:36:42 CONSUMER RECRUITER Abdirahman Rios MD [facility] CPT-56861 Level 3 Est. Patient 10:56:43 CDT Abdirahman Rios MD [facility] CPT-69769 Level 3 Est. Patient 18:24:52 CDT Abdirahman Rios MD [facility] CPT-87448 Level 3 Est. Patient 13:27:22 CDT Abdirahman Rios MD [facility] Procedures Code Procedure Name Date Entry Date Standard Desc ription CPT-65292 Postop F/U Visit 16:21:51 CONSUMER RECRUITER CPT-68076 Postop F/U Visit 17:09:41 CONSUMER RECRUITER CPT-92797 Postop F/U Visit 14:08:43 CONSUMER RECRUITER CPT-94146 Postop F/U Visit 15:18:16 CONSUMER RECRUITER CPT-35531 Postop F/U Visit 15:03:49 CONSUMER RECRUITER CPT-28754 Postop F/U Visit 14:45:23 CONSUMER RECRUITER CPT-56668 Postop F/U Visit 14:11:03 CONSUMER RECRUITER CPT-35187 Postop F/U Visit 18:21:21 CONSUMER RECRUITER CPT-19954 Postop F/U Visit 15:57:12 CONSUMER RECRUITER CPT-78078 Bladder Instillation 16:58:41 CONSUMER RECRUITER 6 CPT-00664 Fluzone Quadrivalent Intramuscular Suspe nsion 0.5 ML 15:20:56 CONSUMER RECRUITER CPT-60354 Immunization Single Admin 15:20:56 CONSUMER RECRUITER 2014 CPT-83095 Excis pilonidal cyst simple 08:51:34 CDT 20 22/04/20 CPT-51793 Venipuncture Draw Fee 14:27:29 CDT CPT-93359 Postop F/U Visit 15:27:43 CDT CPT-49946 Postop F/U Visit 14:40:59 CDT CPT-51465 Postop F/U Visit 15:02:46 CDT CPT-80092 Postop F/U Visit 11:29:00 CONSUMER RECRUITER CPT-J0696 Rocephin 1000 mg (Ceftriaxone) 17:22:33 CONSUMER RECRUITER CPT-09462 Postop F/U Visit 18:41:07 CONSUMER RECRUITER CPT-63855 Postop F/U Visit 08:19:08 CONSUMER RECRUITER CPT-81587 Immunization Single Admin 16:41:53 CDT 2013 CPT-73552 Fluzone Quadrivalent Intramuscular Suspe nsion 0.5 ML 16:41:53 CDT CPT-OV Office Visit 16:39:18 CDT CPT-OV Office Visit 16:16:36 CDT CPT-OV Office Visit 15:34:48 CDT CPT-92844 Postop F/U Visit 14:50:12 CDT CPT-42592 Postop F/U Visit 14:41:10 CDT CPT-67353 Venipuncture Draw Fee 11:38:04 CONSUMER RECRUITER CPT-83757 Postop F/U Visit 19:02:59 CONSUMER RECRUITER CPT-38677 Postop F/U Visit 12:04:54 CONSUMER RECRUITER CPT-29870 Administration single or combination vac cine inc oral 15:56:43 CDT CPT-03413 Influenza split virus > age 3 15:56:43 CDT CPT-55972 Hand comp min 3V 14:25:19 CDT CPT-29735 Postop F/U Visit 21:40:51 CDT CPT-08767 Postop F/U Visit 10:58:43 CDT CPT-72057 Administration single or combination vac cine inc oral 12:33:54 CONSUMER RECRUITER CPT-68134 Influenza Preservative Free split virus >age 3 12:33:54 CONSUMER RECRUITER CPT-91355 Administration single or combination vac cine inc oral 09:30:51 CDT CPT-88977 Influenza split virus > age 3 09:30:51 CDT CPT-28853 Postop F/U Visit 15:14:53 CDT CPT-95104 Postop F/U Visit 13:50:14 CDT CPT-90976 Postop F/U Visit 13:34:52 CDT CPT-OV Office Visit 16:55:03 CDT CPT-35856 [place] of cervix w bx ECC 13:32:50 CDT 10/19 CPT-J1885 Toradol 60 mg (Ketorolac) 15:31:59 CDT 2011 CPT-J1885 Toradol 60 mg (Ketorolac) 15:23:54 CDT 2011 CPT-29159 Visit 11:34:37 CONSUMER RECRUITER CPT-20665 Visit 10:52:39 CONSUMER RECRUITER CPT-45097 Visit 10:12:02 CONSUMER RECRUITER CPT-96143 Visit 11:22:43 CONSUMER RECRUITER CPT-42783 Visit 11:24:12 CONSUMER RECRUITER CPT-26150 Visit 10:47:05 CONSUMER RECRUITER CPT-OV Office Visit 10:26:16 CONSUMER RECRUITER CPT-OV Office Visit 15:34:31 CONSUMER RECRUITER CPT-50026 Visit 10:42:08 CONSUMER RECRUITER CPT-77026 Visit 10:52:45 CONSUMER RECRUITER CPT-000 Give Appropriate Flu Vaccine 16:56:41 CDT 2 CPT-81056 Administration single or combination vac cine inc oral 10:33:21 CDT CPT-72728 Influenza split virus > age 3 10:33:21 CDT CPT-51169 Visit 13:23:09 CDT CPT-58923 Visit 18:24:52 CDT CPT-89817 Sono OB comp > 14 weeks 12:07:49 CDT 04/07
--- OUTSIDE RECORDS SUMMARY | 2020-01-18 16:42 | XMS REPORT ---
Author Author Jeri PRADO [facility] Address [address] [place] [address] Care Team Providers Care Public Relations Coordinator Name Role Phone CADE PRADO Unavailable PROBLEMS Type Condition ICD9-CM Code [id number] Code Onset Dates Condition S tatus SNOMED Code Problem Pain at surgical incision R20.8 Acti ve 90242031 Problem Interstitial cystitis N30.10 Active 039749798 Problem Ingrown left big toenail L60.0 Activ e 709975417 Problem Other chronic pain G89.29 Active 8 1221573 Problem Encounter for immunization Z23 Act krishna 060890679 Problem Pilonidal cyst L05.91 Active 95573 008 Problem Ulcer L98.499 Active [id number] ALLERGIES No Information SOCIAL HISTORY Never Assessed PLAN OF CARE VITAL SIGNS MEDICATIONS Unknown Medications RESULTS No Results PROCEDURES No Known procedures [...]
--- OUTSIDE RECORDS SUMMARY | 2020-01-18 16:42 | XMS REPORT | Clinical Summary ---
Author Author Admin, Jeri Rashid Organization [facility] Address Unknown Phone Allergies, Adverse Reactions, Alerts Allergy Name Reaction Description Start Date Severity Status Pr ovider ZITHROMAX rash all over Critical Active Darya [...] Julian MD Dysuria Hypoglycemia 251.2 Active Joann Faux Hypoglycemia, unspecified Anxiety 300.00 Active Joann Faux Anxi ety state, unspecified Swelling of limb 729.81 Resolved [...] NEC Open wound of buttock, complicated 877.1 Active 2 Good Julian MD Open wound of buttock, complicated , INCIDENTAL PROBLEM ICD-V22.2 Inacti ve Abdirahman [...] braden, NEC ICD-V58.77 Inactive Good Julian MD Medication List Medication Instructions Start Date Stop Date Generic Name NDC Status Provider Patient Instruction BACTRIM DS 800-160 MG TABS by mouth twice a day 11/05 SULFAMETHOXAZOLE-TRIMETHOPRIM 27298505793 No Longer Active Good Julian MD Active IBUPROFEN 800 MG TABS 1 tid prn IBUPROFEN 26719537420 Active Good Julian MD Active ENDOCET 10-325 MG TABS 1 q 6 hr prn OXYCODONE-A CETAMINOPHEN 09504799025 Active Good Julian MD Active HYDROCODONE-ACETAMINOPHEN 7.5-325 MG TABS 1 four times a day as needed for pain HYDROCODONE-ACETAMINOPHEN 42262809182 No Longer Activ crystal Julian MD Active KEFLEX 500 MG CAP 1 tab po tid CEPHALEXIN 932825 20332 No Longer Active Hira Moser APRN Active IBUPROFEN 800 MG TAB 1 pill three times daily as needed for pain IBUPROFEN 76918506196 No Longer Active Kalpesh Dong MD Active PROMETHAZINE-CODEINE 6.25-10 MG/5ML SYRP 1 tsp every 6 hrs prn c ough PROMETHAZINE-CODEINE 60133859617 No Longer Active Kalpesh Carr Active ALPRAZOLAM 0.5 MG TABS 1 PO bid PRN ALPRAZOLAM 462080 91999 Active Shola MCGILL Active HYDROCODONE-ACETAMINOPHEN 5-325 MG TABS 1 tab by mouth every 6 hours as needed HYDROCODONE-ACETAMINOPHEN 81651307903 No Longer Activ e Shola MCGILL Active CEPHALEXIN 500 MG CAPS 1 PO bid x 7 days CEPHAL EXIN 06957833897 No Longer Active Shola MCGILL Active BACTRIM DS 800-160 MG TAB 1 tab by mouth twice daily 2 TRIMETHOPRIM-SULFAMETHOXAZOLE 11660766265 No Longer Active Kalpesh Dong MD Active HYDROCODONE-ACETAMINOPHEN 5-325 MG TABS 1 PO tid PRN pain 5 HYDROCODONE-ACETAMINOPHEN 92790028777 No Longer Active Abhinav Galvan MD Active IMPLANON 68 MG IMPL IMPLANTED IN LEFT ARM ETONO GESTREL 10382920807 No Longer Active 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 ANIMAL HUSBANDMAN Active AMOXICILLIN 500 MG TABS 2 tabs PO bid x 10 d AM OXICILLIN 13553633419 No Longer Active Kalpesh Dong MD Active LEVAQUIN 500 MG TABS 1 PO q day x 7 days LEVOFL OXACIN 99524834564 No Longer Active Shola MCGILL Active PROAIR HFA 108 (90 BASE) MCG/ACT AERS 2 puff q 4-6 hrs PRN ALBUTEROL SULFATE 20723283946 Active Shola MCGILL Acti ve FIORICET 50-325-40 MG TABS 2 PO q 8 hrs PRN FOSTER [id number] 78544584864 Active Abdirahman Rios MD Active AMITRIPTYLINE HCL 25 MG TAB 1 tab by mouth daily 60 minutes before bedtime AMITRIPTYLINE HCL 28147078952 No Longer Active Shola MCGILL Active LORTAB 5 5-500 MG TABS 1/2 to 1 tablet by mouth go ry 6 hours as needed for pain HYDROCODONE-ACETAMINOPHEN 87159769955 No Longer Active Shola MCGILL Active CEPHALEXIN 500 MG TABS Take one by mouth four times daily, morning, noon, early evening and bedtime. CEPHALEXIN 28935097810 No Long er Active Hira Perazaabel ANIMAL HUSBANDMAN Active TYLENOL/CODEINE #3 300-30 MG TAB 1-2 po q6hr PRN Pain ACETAMINOPHEN-CODEINE 40759592466 No Longer Active Edilberto Marino DO Active PRISTIQ 50 MG [id number] 1 po qd DESVENLAFAXI NE SUCCINATE 04491099021 No Longer Active Edilberto Marino DO Active PENICILLIN V POTASSIUM 500 MG TAB 1 four times a day 2 PENICILLIN V POTASSIUM 94617046044 No Longer Active Edilberto Marino DO Active DOXYCYCLINE HYCLATE 100 MG CAPS Take one (1) tablet by mouth twice a day DOXYCYCLINE HYCLATE 61127086556 No Longer Active Ronnie Galvan MD Active HYDROCODONE-ACETAMINOPHEN 5-325 MG TABS 1 po q 6hr PRN Pain 2011 HYDROCODONE-ACETAMINOPHEN 98388250591 No Longer Active Patri joan Perez RN Active BACTRIM DS 800-160 MG TAB 1 tab by mouth twice daily 2 TRIMETHOPRIM-SULFAMETHOXAZOLE 08875720900 No Longer Active Kalpesh Dong MD Active LORTAB 5 5-500 MG TABS 1/2 to 1 tablet by mouth go ry 4 hours as needed for pain HYDROCODONE-ACETAMINOPHEN 19775713714 No Longer Active Kalpesh Dong MD Active GENERESS FE 0.8-25 MG-MCG CHEW Take one by mouth daily NORETHIN-ETH ESTRADIOL-FE 08283290212 No Longer Active Kalpesh Dong MD Active HYDROCODONE-ACETAMINOPHEN 7.5-500 MG TABS 1-2 every 4 hours as needed HYDROCODONE-ACETAMINOPHEN 07425675845 No Longer Activ e Kalpesh Dong MD Active FERROUS SULFATE 325 (65 FE) MG TABS 1 tablet by mouth twice yung y FERROUS SULFATE 59470957008 No Longer Active Kalpesh Dong MD Active IBUPROFEN 600 MG TAB 1 po q6-8hr PRN IBUPROFEN 47201952600 No Longer Active Kalpesh Dong MD Active SPIRONOLACTONE 25 MG TAB 1 tablet by mouth daily 01/22 SPIRONOLACTONE 41016462064 No Longer Active Kalpesh Dong MD Acti ve HYDROCODONE-ACETAMINOPHEN 7.5-325 MG TABS 1 po QID PRN Pain 2011 HYDROCODONE-ACETAMINOPHEN 10130452262 No Longer Active Kalpesh Dong MD Active CLINDAMYCIN HCL 300 MG CAPS 1 po q6hr x 7 days CLINDAMYCIN HCL 62651074494 No Longer Active Edilberto Marino DO Active PREDNISONE 20 MG TAB 2 tabs daily for 4 days, 1 t ab daily for 4 days, 1/2 tab daily for 4 days PREDNISONE 38168754936 No Longer Active Edilberto Marino DO Active PERCOCET 5-325 MG TABS 1 tablet by mouth every 6 hours as ne eded for pain OXYCODONE-ACETAMINOPHEN 72914056755 No Longer Active Abdirahman Rios MD Active VITAMINS TABS Take one by mouth daily MV & MIN W/FE-FA TABS 95021816010 No Longer Active Abdirahman Rios MD Active LUIS 3-0.02 MG TABS 1 tablet by mouth daily as directed DROSPIRENONE-ETHINYL ESTRADIOL 89882866462 No Longer Active Abdirahman Rios MD Active LORATADINE 10 MG TABS 1 tablet by mouth daily L ORATADINE 76796235817 No Longer Active Kalpesh Dong MD Active HYDROCODONE-ACETAMINOPHEN 5-325 MG TABS 1 po q 6hr PRN Pain 2010 HYDROCODONE-ACETAMINOPHEN 51224538778 No Longer Active Edilberto Marino DO Active BACTRIM DS 800-160 MG TAB 1 tab by mouth twice daily 2 TRIMETHOPRIM-SULFAMETHOXAZOLE 29533885845 No Longer Active Abdirahman Rios MD Active 28-0.8 MG TABS Take one by mouth daily 09/20 VIT-FE FUMARATE-FA 17781146142 No Longer Active Abdirahman Rios MD Active CIPRO 500 MG TAB 1 tablet by mouth twice daily CIPROFLOXACIN HCL 22107309092 No Longer Active Abdirahman Rios MD Active BENADRYL 25 MG CAP 1 po q8hr PRN Congestion DIPHENHYDRAMINE HCL 02313396110 No Longer Active Abdirahman Rios MD Active ZOLOFT 50 MG TAB 1 po qd SERTRALINE HCL 305514 43170 No Longer Active Abdirahman Rios MD Active AMOXICILLIN 875 MG TABS 1 tab by mouth twice daily 201 08/09/13 AMOXICILLIN 98000436901 No Longer Active Abdirahman Rios MD Activ e AMOXICILLIN 875 MG TABS 1 tab by mouth twice daily 201 07/19/27 AMOXICILLIN 56923319209 No Longer Active Abdirahman Rios MD Activ e BACTRIM DS 800-160 MG TAB 2 tab by mouth twice daily 2 TRIMETHOPRIM-SULFAMETHOXAZOLE 20910290852 No Longer Active Abdirahman Rios MD Active KEFLEX 500 MG CAP 1 po tid x 10 days CEPHALEXIN 57459679801 No Longer Active Abdirahman Rios MD Active AMOXICILLIN 875 MG TABS 1 tab by mouth twice daily 201 07/18/07 AMOXICILLIN 45268587069 No Longer Active Abdirahman Rios MD Activ e BACTRIM DS 800-160 MG TAB 2 tab by mouth twice daily 2 BACTRIM DS 800-160 MG TAB TRIMETHOPRIM-SULFAMETHOXAZOLE Inactive ZOLOFT 50 MG TAB 1 po qd ZOLOFT 50 MG TAB 3129 41 SERTRALINE HCL Inactive BENADRYL 25 MG CAP 1 po q8hr PRN Congestion BENADRYL 25 MG CAP 4599975 DIPHENHYDRAMINE HCL Inactive 28-0.8 MG TABS Take one by mouth daily 09/20 28-0.8 MG TABS VIT-FE FUMARATE-FA Inactive HYDROCODONE-ACETAMINOPHEN 5-325 MG TABS 1 po q 6hr PRN Pain 2010 HYDROCODONE-ACETAMINOPHEN 5-325 MG TABS 660493 HYDROCODONE-ACETAMINOPHEN Inactive LORATADINE 10 MG TABS 1 tablet by mouth daily LORATADINE 10 MG TABS 824117 LORATADINE Inactive LUIS 3-0.02 MG TABS 1 tablet by mouth daily as directed LUIS 3-0.02 MG TABS DROSPIRENONE-ETHINYL ESTRADIOL Inactive VITAMINS TABS Take one by mouth daily VITAMINS TABS MV & MIN W/FE-FA TABS Inactive PERCOCET 5-325 MG TABS 1 tablet by mouth every 6 hours as ne eded for pain PERCOCET 5-325 MG TABS 2689591 OXYCODONE-ACETAMIN OPHEN Inactive PREDNISONE 20 MG TAB 2 tabs daily for 4 days, 1 t ab daily for 4 days, 1/2 tab daily for 4 days PREDNISONE 20 MG TAB 765119 PREDNISON E Inactive CLINDAMYCIN HCL 300 MG CAPS 1 po q6hr x 7 days CLINDAMYCIN HCL 300 MG CAPS 271273 CLINDAMYCIN HCL Inactive HYDROCODONE-ACETAMINOPHEN 7.5-325 MG TABS 1 po QID PRN Pain 2011 HYDROCODONE-ACETAMINOPHEN 7.5-325 MG TABS 500680 HYDROCODONE-ACETAMINOPHEN Inactive SPIRONOLACTONE 25 MG TAB 1 tablet by mouth daily 01/22 SPIRONOLACTONE 25 MG TAB 241970 SPIRONOLACTONE Inactive IBUPROFEN 600 MG TAB 1 po q6-8hr PRN IBUPROFEN 600 MG TAB 564832 IBUPROFEN Inactive FERROUS SULFATE 325 (65 FE) MG TABS 1 tablet by mouth twice yung y FERROUS SULFATE 325 (65 FE) MG TABS 106637 FERROUS SULF ATE Inactive HYDROCODONE-ACETAMINOPHEN 7.5-500 MG TABS 1-2 every 4 hours as needed HYDROCODONE-ACETAMINOPHEN 7.5-500 MG TABS 871283 HYDROCODONE-ACETAMINOPHEN Inactive GENERESS FE 0.8-25 MG-MCG CHEW [...] PRN Pain 2011 HYDROCODONE-ACETAMINOPHEN 5-325 MG TABS 793843 HYDROCODONE-ACETAMINOPHEN Inactive DOXYCYCLINE HYCLATE 100 MG CAPS Take one (1) tablet by mouth twice a day DOXYCYCLINE HYCLATE 100 MG CAPS 636933 DOXYCYCLINE HYCLATE Inactive PENICILLIN V POTASSIUM 500 MG TAB 1 four times a day 2 PENICILLIN V POTASSIUM 500 MG TAB 814523 PENICILLIN V POTASSIUM [place] ctive PRISTIQ 50 MG [id number] 1 po qd PRISTIQ 50 MG [id number] DESVENLAFAXINE SUCCINATE Inactive TYLENOL/CODEINE #3 300-30 MG TAB 1-2 po q6hr PRN Pain TYLENOL/CODEINE #3 300-30 MG TAB 074783 ACETAMINOPHEN-CODEINE Inact krishna CEPHALEXIN 500 MG TABS Take one by mouth four times daily, morning, noon, early evening and bedtime. CEPHALEXIN 500 MG TABS 738790 CEPHALEXIN Inactive LORTAB 5 5-500 MG TABS 1/2 to 1 tablet by mouth go ry 6 hours as needed for pain LORTAB 5 5-500 MG TABS HYDROCODONE-A CETAMINOPHEN Inactive AMITRIPTYLINE HCL 25 MG TAB 1 tab by mouth daily 60 minutes before bedtime AMITRIPTYLINE HCL 25 MG TAB 256603 AMITRIPTYLINE HCL Inactive AMOXICILLIN 500 MG TABS 2 tabs PO bid x 10 d 7 AMOXICILLIN 500 MG TABS 764104 AMOXICILLIN Inactive IMPLANON 68 MG IMPL IMPLANTED IN LEFT ARM IMPLANON 68 MG IMPL ETONOGESTREL Inactive HYDROCODONE-ACETAMINOPHEN 5-325 MG TABS 1 PO tid PRN pain 5 HYDROCODONE-ACETAMINOPHEN 5-325 MG TABS 553084 HYDROCODONE-ACETAMIN OPHEN Inactive BACTRIM DS 800-160 MG TAB 1 tab by mouth twice daily 2 BACTRIM DS 800-160 MG TAB TRIMETHOPRIM-SULFAMETHOXAZOLE Inac tive CEPHALEXIN 500 MG CAPS 1 PO bid x 7 days CEPHALEXIN 500 MG CAPS 349184 CEPHALEXIN Inactive HYDROCODONE-ACETAMINOPHEN 5-325 MG TABS 1 tab by mouth every 6 hours as needed HYDROCODONE-ACETAMINOPHEN 5-325 MG TABS 693373 HYDROCODONE-ACETAMINOPHEN Inactive PROMETHAZINE-CODEINE 6.25-10 MG/5ML SYRP 1 tsp every 6 hrs prn c ough PROMETHAZINE-CODEINE 6.25-10 MG/5ML SYRP 643254 PROMETH AZINE-CODEINE Inactive IBUPROFEN 800 MG TAB 1 pill three times daily as needed for pain IBUPROFEN 800 MG TAB 605424 IBUPROFEN Inactive KEFLEX 500 MG CAP 1 tab po tid KEFLEX 500 MG CAP 231938 CEPHALEXIN Inactive HYDROCODONE-ACETAMINOPHEN 7.5-325 MG TABS 1 four times a day as needed for pain HYDROCODONE-ACETAMINOPHEN 7.5-325 MG TABS 366073 HYDROCODONE-ACETAMINOPHEN Inactive BACTRIM DS 800-160 MG TABS by mouth twice a day 11/05 BACTRIM DS 800-160 MG TABS SULFAMETHOXAZOLE-TRIMETHOPRIM Inactive AMOXICILLIN 875 MG TABS 1 tab by mouth twice daily 201 07/18/07 AMOXICILLIN 875 MG TABS 726008 AMOXICILLIN Inactive KEFLEX 500 MG CAP 1 po tid x 10 days KEFLEX 500 MG CAP 724517 CEPHALEXIN Inactive AMOXICILLIN 875 MG TABS 1 tab by mouth twice daily 201 07/19/27 AMOXICILLIN 875 MG TABS 715153 AMOXICILLIN Inactive AMOXICILLIN 875 MG TABS 1 tab by mouth twice daily 08/09/13 AMOXICILLIN 875 MG TABS 019356 AMOXICILLIN Inactive CIPRO 500 MG TAB 1 tablet by mouth twice daily CIPRO 500 MG TAB 372414 CIPROFLOXACIN HCL Inactive BACTRIM DS 800-160 MG TAB 1 tab by mouth twice daily 2 BACTRIM DS 800-160 MG TAB TRIMETHOPRIM-SULFAMETHOXAZOLE Inac tive LEVAQUIN 500 MG TABS 1 PO q day x 7 days LEVAQUIN 500 MG TABS 032802 LEVOFLOXACIN Inactive Advance Directives Directive Description Start Date PERMISSION TO SHARE Immunizations Vaccine Administration Date Value Standard Alf cription Seasonal influenza vaccine, injectable, containing preservative, for > 3 years old (Afluria, FluLaval, Fluzone, Fluvirin, Fluarix, Agriflu(>= 18 yo)) Fluzone (>3 yrs.) [[id number]] Influenza, seasonal, inject able Seasonal influenza vaccine, injectable, preservative free, for > 3 years old (Afluria, FluLaval, Fluzone, Fluvirin, Fluarix, Agriflu(>= 18 yo)) Fluzone preservative free (>3 yrs.) [[id number]] Influenza, seasonal, injectable, preservative free Seasonal influenza vaccine, injectable, containing preservative, for > 3 years old (Afluria, FluLaval, Fluzone, Fluvirin, Fluarix, Agriflu(>= 18 yo)) Fluzone (>3 yrs.) [[id number]] Influenza, seasonal, inject able Seasonal influenza vaccine, injectable, containing preservative, for > 3 years old (Afluria, FluLaval, Fluzone, Fluvirin, Fluarix, Agriflu(>= 18 yo)) Fluzone (>3 yrs.) [[id number]] Influenza, seasonal, inject able dT (Diphtheria and [...] - 3141-9 237.2 [lb_av] Weigh t Measured blood pressure, diastolic - 8462-4 83 mm[Hg] BP ribeiro blood pressure, systolic - 8480-6 124 mm[Hg] BP sys height E&M - 8302-2 66 [in_us] Bdy h eight pulse rate E&M - 8867-4 90 /min H eart rate temperature E&M 97.2 [degF] Body temp erature weight E&M - 3141-9 237.4 [lb_av] Weigh t Measured blood pressure, diastolic - 8462-4 80 mm[Hg] BP ribeiro blood pressure, systolic - 8480-6 120 mm[Hg] BP sys height E&M - 8302-2 66 [in_us] Bdy h eight pulse rate E&M - 8867-4 96 /min H eart rate weight E&M - 3141-9 236 [lb_av] Weigh t Measured blood pressure, diastolic - 8462-4 70 mm[Hg] BP ribeiro blood pressure, systolic - 8480-6 115 mm[Hg] BP sys height E&M - 8302-2 66 [in_us] Bdy h eight pulse rate E&M - 8867-4 75 /min H eart rate temperature E&M 97.6 [degF] Body temp erature weight E&M - 3141-9 244 [lb_av] Weigh t Measured blood pressure, diastolic - 8462-4 85 mm[Hg] BP ribeiro blood pressure, systolic - 8480-6 140 mm[Hg] BP sys height E&M - 8302-2 66 [in_us] Bdy h eight pulse rate E&M - 8867-4 71 /min H eart rate temperature E&M 97.2 [degF] Body temp erature weight E&M - 3141-9 238.13 [lb_av] Weigh t Measured blood pressure, diastolic - 8462-4 81 mm[Hg] BP ribeiro blood pressure, systolic - 8480-6 124 mm[Hg] BP sys height E&M - 8302-2 66 [in_us] Bdy h eight pulse rate E&M - 8867-4 73 /min H eart rate temperature E&M 96.3 [degF] Body temp erature weight E&M - 3141-9 237.4 [lb_av] Weigh t Measured blood pressure, diastolic, supine 75 mm[Hg] BP ribeiro blood pressure, systolic, supine E&M 133 mm[Hg] BP sys height E&M - 8302-2 66 [in_us] Bdy h eight pulse rate E&M - 8867-4 87 /min H eart rate temperature E&M 99.0 [degF] Body temp erature weight E&M - 3141-9 235 [lb_av] Weigh t Measured blood pressure, diastolic - 8462-4 78 mm[Hg] BP ribeiro blood pressure, systolic - 8480-6 114 mm[Hg] BP sys height E&M - 8302-2 66 [in_us] Bdy h eight pulse rate E&M - 8867-4 86 /min H eart rate temperature E&M 97.3 [degF] Body temp erature weight E&M - 3141-9 238.38 [lb_av] Weigh t Measured blood pressure, diastolic - 8462-4 83 mm[Hg] BP ribeiro blood pressure, systolic - 8480-6 142 mm[Hg] BP sys height E&M - 8302-2 66 [in_us] Bdy h eight pulse rate E&M - 8867-4 69 /min H eart rate temperature E&M 98.4 [degF] Body temp erature weight E&M - 3141-9 240 [lb_av] Weigh t Measured blood pressure, diastolic - 8462-4 84 mm[Hg] BP ribeiro blood pressure, systolic - 8480-6 125 mm[Hg] BP sys height E&M - 8302-2 66 [in_us] Bdy h eight pulse rate E&M - 8867-4 81 /min H eart rate temperature E&M 98.5 [degF] Body temp erature weight E&M - 3141-9 236 [lb_av] Weigh t Measured blood pressure, diastolic - 8462-4 81 mm[Hg] BP ribeiro blood pressure, systolic - 8480-6 124 mm[Hg] BP sys height E&M - 8302-2 66 [in_us] Bdy h eight pulse rate E&M - 8867-4 85 /min H eart rate temperature E&M 98.6 [degF] Body temp erature weight E&M - 3141-9 237.25 [lb_av] Weigh t Measured blood pressure, diastolic - 8462-4 81 mm[Hg] BP ribeiro blood pressure, systolic - 8480-6 124 mm[Hg] BP sys height E&M - 8302-2 66 [in_us] Bdy h eight pulse rate E&M - 8867-4 69 /min H eart rate temperature E&M 98.1 [degF] Body temp erature weight E&M - 3141-9 237 [lb_av] Weigh t Measured blood pressure, diastolic - 8462-4 86 mm[Hg] BP ribeiro blood pressure, systolic - 8480-6 136 mm[Hg] BP sys height E&M - 8302-2 66 [in_us] Bdy h eight pulse rate E&M - 8867-4 77 /min H eart rate temperature E&M 97.8 [degF] Body temp erature weight E&M - 3141-9 236.4 [lb_av] Weigh t Measured blood pressure, diastolic - 8462-4 86 mm[Hg] BP ribeiro blood pressure, systolic - 8480-6 122 mm[Hg] BP sys height E&M - 8302-2 66 [in_us] Bdy h eight pulse rate E&M - 8867-4 63 /min H eart rate temperature E&M 96 [degF] Body temp erature weight E&M - 3141-9 240.6 [lb_av] Weigh t Measured blood pressure, diastolic - 8462-4 79 mm[Hg] BP ribeiro blood pressure, systolic - 8480-6 118 mm[Hg] BP sys height E&M - 8302-2 66 [in_us] Bdy h eight pulse rate E&M - 8867-4 76 /min H eart rate temperature E&M 97.7 [degF] Body temp erature weight E&M - 3141-9 238.6 [lb_av] Weigh t Measured blood pressure, diastolic - 8462-4 83 mm[Hg] BP ribeiro blood pressure, systolic - 8480-6 130 mm[Hg] BP sys height E&M - 8302-2 66 [in_us] Bdy h eight pulse rate E&M - 8867-4 89 /min H eart rate temperature E&M 97.5 [degF] Body temp erature weight E&M - 3141-9 239 [lb_av] Weigh t Measured Diagnostic Results Date Name Value Unit Range Description Chart Maintenance: Outside labs entered on flowsheet - Chemistry sodium, serum 139 mmol/L potassium, serum 3.9 mmol/L chloride, serum 103 mmol/L carbon dioxide, venous blood 26.1 mmol/L urea nitrogen, blood 5 mg/dL blood glucose 89 mg/dL creatinine, serum 0.73 mg/dL calcium, serum 9.1 mg/dL Chart Maintenance: Outside labs entered on [employer] - Hematology leukocyte count, blood 8.3 10*3/mm3 erythrocyte (RBC) count 5.2 10*6/mm3 hemoglobin, blood 14.2 g/dL hematocrit, blood 42.6 % mean corpuscular volume, RBC 82.4 fL mean corpuscular hemoglobin, RBC 27.5 pg red blood cell distribution width 12.9 % platelet count 316 10*3/mm3 Lab Report: CBC W/DIFF, Comp. Metabolic Panel, Thyroid Stimulating Hormo ... - Chemistry sodium, serum 140 mmol/L 279-392 6187/02/24 potassium, serum 4.3 mmol/L 3.5-5.2 chloride, serum 104 mmol/L 98-107 carbon dioxide, venous blood 28.8 mmol/L 21.0-32 .0 blood glucose 89 mg/dL 65-110 urea nitrogen, blood 5 mg/dL 7-18 creatinine, serum 0.60 mg/dL 0.60-1.30 alanine aminotransferase (SGPT), serum 31 U/L 12-78 aspartate aminotransferase (SGOT), serum 20 U/L 15-37 alkaline phosphatase, serum 85 U/L 50-136 calcium, serum 8.4 mg/dL 8.5-10.1 bilirubin, serum, total 0.30 mg/dL 0.00-1.00 TSH 1.89 m[iU]/mL 0.36-3.74 thyroxine, serum, free 0.80 ng/dL 0.76-1.46 protein, total urine random Negative mg/dL Negative RBC, urine, dipstick Negative Negative Lab Report: CBC W/DIFF, Comp. Metabolic Panel, Thyroid Stimulating Hormo ... - Hematology leukocyte count, blood 7.4 10^3/MM^3 10*3/mm3 4.6-10.2 neutrophils as percent of blood leukocytes 57.3 % 42.2-75.2 monocytes as percent of blood leukocytes 8.1 % 1.7-9.3 lymphocytes as percent of blood leukocytes 31.0 % 20.5-51.1 erythrocyte (RBC) count 5.20 10^6/MM^3 10*6/mm3 4.04-5.4 8 hemoglobin, blood 14.9 g/dL 12.0-16.0 hematocrit, blood 44.1 % 36.0-46.0 mean corpuscular volume, RBC 85 fL 80-97 mean corpuscular hemoglobin, RBC 28.7 pg 27. 0-31.2 mean corpuscular hemoglobin concentration, RBC 33.9 G/DL % 31.8-35.4 red blood cell distribution width 13.9 % 11 .6-14.8 platelet count 307 10^3/MM^3 10*3/mm3 142-424 Lab Report: CBC W/DIFF, Comp. Metabolic Panel, Thyroid Stimulating Hormo ... - Urinalysis urobilinogen, urine, semiquantitative (dipstick) 0.2 Normal leukocyte esterase, urine, by dipstick Negative Negative nitrite, urine, semiquantitative Negative Neg ative glucose, urine, semiquantitative Negative Neg ative ketones, urine, by test strip Negative Negati ve bilirubin, urine Negative Negative urine color Yellow Colorless;Lightyellow;St raw;Yellow appearance, urine Clear Clear specific gravity, urine 1.025 1.000-1.030 pH, urine, semiquantitative 5.5 5.0-8.5 Lab Report: Glucose Tolerance 2hr - Chem istry blood glucose, finger stick 91 65-110 Lab Report: HGBA1C - Chemistry hemoglobin A1C, blood, as % of total hemoglobin 5.1 % 4.3-6.0 Lab Report: T3, TOTAL, INSULIN - Lacing String Cutter ry triiodothyronine (T3), serum 78 ng/dL 76-181 Lab Report: UADIP W/MICRO, AUTO - Chemis try protein, total urine random Negative mg/dL Negative RBC, urine, dipstick 2+ Negative Lab Report: UADIP W/MICRO, AUTO - Urinal ysis urobilinogen, urine, semiquantitative (dipstick) 0.2 Normal leukocyte esterase, urine, by dipstick 3+ Negative nitrite, urine, semiquantitative Negative Neg ative glucose, urine, semiquantitative Negative Neg ative ketones, urine, by test strip Negative Negati ve bilirubin, urine Negative Negative urine color Yellow Colorless;Lightyellow;St raw;Yellow appearance, urine SlCloudy Clear specific gravity, urine 1.025 1.000-1.030 pH, urine, semiquantitative 8.0 5.0-8.5 Office Visit: low blood sugars - Chemis try cholesterol, target level 200 mg/dL triglyceride, target level 200 mg/dL HDL cholesterol, serum, target level 35 mg/dL LDL target level 100 mg/dL Encounters Code Encounter Date Provider Facility CPT-97111 Level 3 Est. Patient 14:11:58 CDT Kalpesh goins MD [facility] CPT-12103 Level 3 Est. Patient 16:50:00 CDT Michelle MERCADO [facility] CPT-70125 Level 3 Est. Patient 17:11:32 ENTRY LEVEL BUYER Brandie bates MD PhD [facility] CPT-44006 Level 3 Est. Patient 16:31:47 ENTRY LEVEL BUYER Shola MCGILL [facility] CPT-20883 Level 3 Est. Patient 17:51:10 ENTRY LEVEL BUYER Abhinav Galvan MD [facility] CPT-28779 Level 4 Est. Patient 12:54:56 ENTRY LEVEL BUYER Kalpesh goins MD [facility] CPT-32660 Level 4 Est. Patient 12:53:56 ENTRY LEVEL BUYER Kalpesh gions MD [facility] CPT-55655 Level 3 Est. Patient 17:56:58 CDT Shola Wright [facility] CPT-55653 Level 3 Est. Patient 14:26:20 CDT Janak butcher [facility] CPT-94213 Level 3 Est. Patient 09:38:41 CDT Shola Keesha Wright [facility] CPT-01171 Level 3 Est. Patient 14:45:26 CDT Edilberto tiwari [facility] CPT-99049 Level 3 Est. Patient 10:51:33 CDT Hira muniz [facility] CPT-26422 Level 3 Est. Patient 11:57:55 ENTRY LEVEL BUYER Shola Thao Adriana [facility] CPT-35222 Level 3 Est. Patient 09:53:33 ENTRY LEVEL BUYER Edilberto tiwari [facility] CPT-90692 Level 3 Est. Patient 14:42:54 ENTRY LEVEL BUYER Abhinav Galvan MD [facility]-54525 Level 3 Est. Patient 15:10:02 CDT Janak butcher [facility] CPT-61154 Level 3 Est. Patient 15:20:20 CDT Theo dennis MD [facility] CPT-33071 Level 2 Est. Patient 14:08:57 CDT Kalpesh goins MD [facility] CPT-05565 Level 3 Est. Patient 13:56:19 CDT Abdirahman Rios MD [facility]-98398 Level 3 Est. Patient 13:59:37 CDT Abdirahman Rios MD [facility] CPT-16455 Level 2 Est. Patient 14:44:59 CDT Kalpesh goins MD [facility] CPT-55512 Level 3 Est. Patient 06:06:23 CDT Edilberto tiwari DO [facility] CPT-29862 Level 3 Est. Patient 15:23:54 CDT Abdirahman Rios MD [facility] CPT-87388 Level 3 Est. Patient 15:43:49 CDT Abdirahman Rios MD [facility] CPT-14003 Level 3 Est. 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 Patient 08:13:35 ENTRY LEVEL BUYER Abdirahman Rios MD [facility] CPT-58197 Level 2 Est. 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 Patient 10:56:43 CDT Abdirahman Rios MD [facility] CPT-77386 Level 3 Est. Patient 18:24:52 CDT Abdirahman Rios MD [facility] CPT-78254 Level 3 Est. Patient 13:27:22 CDT Abdirahman Rios MD [facility] Procedures Code Procedure Name Date Entry Date Standard Desc ription CPT-OV Office Visit 15:34:48 CDT CPT-94207 Postop F/U Visit 14:50:12 CDT CPT-71099 Postop F/U Visit 14:41:10 CDT CPT-54891 Venipuncture Draw Fee 11:38:04 ENTRY LEVEL BUYER CPT-90302 Postop F/U Visit 19:02:59 ENTRY LEVEL BUYER CPT-53390 Postop F/U Visit 12:04:54 ENTRY LEVEL BUYER CPT-15329 Administration single or combination vac cine inc oral 15:56:43 CDT CPT-87021 Influenza split virus > age 3 15:56:43 CDT CPT-02353 Hand comp min 3V 14:25:19 CDT CPT-66976 Postop F/U Visit 21:40:51 CDT CPT-54371 Postop F/U Visit 10:58:43 CDT CPT-62476 Administration single or combination vac cine inc oral 12:33:54 ENTRY LEVEL BUYER CPT-37139 Influenza Preservative Free split virus >age 3 12:33:54 ENTRY LEVEL BUYER CPT-64461 Administration single or combination vac cine inc oral 09:30:51 CDT CPT-50293 Influenza split virus > age 3 09:30:51 CDT CPT-73362 Postop F/U Visit 15:14:53 CDT CPT-20583 Postop F/U Visit 13:50:14 CDT CPT-83148 Postop F/U Visit 13:34:52 CDT CPT-OV Office Visit 16:55:03 CDT CPT-34183 Lyons of cervix w bx ECC 13:32:50 CDT 10/19 CPT-J1885 Toradol 60 mg (Ketorolac) 15:31:59 CDT 2011 CPT-J1885 Toradol 60 mg (Ketorolac) 15:23:54 CDT 2011 CPT-45868 Visit 11:34:37 ENTRY LEVEL BUYER CPT-56494 Visit 10:52:39 ENTRY LEVEL BUYER CPT-74320 Visit 10:12:02 ENTRY LEVEL BUYER CPT-05316 Visit 11:22:43 ENTRY LEVEL BUYER CPT-64928 Visit 11:24:12 ENTRY LEVEL BUYER CPT-63939 Visit 10:47:05 ENTRY LEVEL BUYER CPT-OV Office Visit 10:26:16 ENTRY LEVEL BUYER CPT-OV Office Visit 15:34:31 ENTRY LEVEL BUYER CPT-96618 Visit 10:42:08 ENTRY LEVEL BUYER CPT-94288 Visit 10:52:45 ENTRY LEVEL BUYER CPT-000 Give Appropriate Flu Vaccine 16:56:41 CDT 2 CPT-64746 Administration single or combination vac cine inc oral 10:33:21 CDT CPT-25963 Influenza split virus > age 3 10:33:21 CDT CPT-64709 Visit 13:23:09 CDT CPT-33987 Visit 18:24:52 CDT CPT-23287 Sono OB comp > 14 weeks 12:07:49 CDT 04/07
--- OUTSIDE RECORDS SUMMARY | 2020-01-18 16:43 | XMS REPORT | Clinical Summary ---
Author Author Admin, Jeri Rashid Organization [facility] Address Unknown Phone Allergies, Adverse Reactions, Alerts [...] MD Routine follow-up FAMILY PLANNING V25.09 Resolved oGod sierra MD Encounter for other general counseling [...] by mouth twice a day 11/05 SULFAMETHOXAZOLE-TRIMETHOPRIM [id number] No Longer Active Good Julian MD Active IBUPROFEN 800 MG TABS 1 tid prn IBUPROFEN [id number] Active Good Julian MD Active ENDOCET 10-325 MG TABS 1 q 6 hr prn OXYCODONE-A CETAMINOPHEN 12503556346 Active Shola MCGILL Active HYDROCODONE-ACETAMINOPHEN 7.5-325 MG TABS 1 four times a day as needed for pain HYDROCODONE-ACETAMINOPHEN 07197719517 No Longer Activ crystal Julian MD Active KEFLEX 500 MG CAP 1 tab po tid CEPHALEXIN 857138 36497 No Longer Active Hira Moser APRN Active IBUPROFEN 800 MG TAB 1 pill three times daily as needed for pain IBUPROFEN 98737015295 No Longer Active Kalpesh Dong MD Active PROMETHAZINE-CODEINE 6.25-10 MG/5ML SYRP 1 tsp every 6 hrs prn c ough PROMETHAZINE-CODEINE 94373017428 No Longer Active Kalpesh Carr Active ALPRAZOLAM 0.5 MG TABS 1 PO bid PRN ALPRAZOLAM 048565 60458 Active Shola MCGILL Active HYDROCODONE-ACETAMINOPHEN 5-325 MG TABS 1 tab by mouth every 6 hours as needed HYDROCODONE-ACETAMINOPHEN 56710902134 No Longer Activ e Shola MCGILL Active CEPHALEXIN 500 MG CAPS 1 PO bid x 7 days CEPHAL EXIN 25622222247 No Longer Active Shola MCGILL Active BACTRIM DS 800-160 MG TAB 1 tab by mouth twice daily 2 TRIMETHOPRIM-SULFAMETHOXAZOLE 48602597672 No Longer Active Kalpesh Dong MD Active HYDROCODONE-ACETAMINOPHEN 5-325 MG TABS 1 PO tid PRN pain 5 HYDROCODONE-ACETAMINOPHEN 71459361113 No Longer Active Abhinav Galvan MD Active IMPLANON 68 MG IMPL IMPLANTED IN LEFT ARM ETONO GESTREL 01375126857 No Longer Active 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 HOTEL ENGINEER Active AMOXICILLIN 500 MG TABS 2 tabs PO bid x 10 d AM OXICILLIN 26844645055 No Longer Active Kalpesh Dong MD Active LEVAQUIN 500 MG TABS 1 PO q day x 7 days LEVOFL OXACIN 23698754362 No Longer Active Shola MCGILL Active PROAIR HFA 108 (90 BASE) MCG/ACT AERS 2 puff q 4-6 hrs PRN ALBUTEROL SULFATE 83008285542 Active Shola MCGILL Acti ve FIORICET 50-325-40 MG TABS 2 PO q 8 hrs PRN FOSTER [id number] 95520406220 Active Abdirahman Rios MD Active AMITRIPTYLINE HCL 25 MG TAB 1 tab by mouth daily 60 minutes before bedtime AMITRIPTYLINE HCL 54613132279 No Longer Active Shola MCGILL Active LORTAB 5 5-500 MG TABS 1/2 to 1 tablet by mouth go ry 6 hours as needed for pain HYDROCODONE-ACETAMINOPHEN 82349147761 No Longer Active Shola MCGILL Active CEPHALEXIN 500 MG TABS Take one by mouth four times daily, morning, noon, early evening and bedtime. CEPHALEXIN 51827338530 No Long er Active Hira Moser HOTEL ENGINEER Active TYLENOL/CODEINE #3 300-30 MG TAB 1-2 po q6hr PRN Pain ACETAMINOPHEN-CODEINE 82859750084 No Longer Active Edilberto Marino DO Active PRISTIQ 50 MG [id number] 1 po qd DESVENLAFAXI NE SUCCINATE 83337223285 No Longer Active Edilberto Marino DO Active PENICILLIN V POTASSIUM 500 MG TAB 1 four times a day 2 PENICILLIN V POTASSIUM 50254267520 No Longer Active Edilberto Marino DO Active DOXYCYCLINE HYCLATE 100 MG CAPS Take one (1) tablet by mouth twice a day DOXYCYCLINE HYCLATE 42845660725 No Longer Active Ronnie Galvan MD Active HYDROCODONE-ACETAMINOPHEN 5-325 MG TABS 1 po q 6hr PRN Pain 2011 HYDROCODONE-ACETAMINOPHEN 24448881447 No Longer Active Patri joan Perez RN Active BACTRIM DS 800-160 MG TAB 1 tab by mouth twice daily 2 TRIMETHOPRIM-SULFAMETHOXAZOLE 12291032177 No Longer Active Kalpesh Dong MD Active LORTAB 5 5-500 MG TABS 1/2 to 1 tablet by mouth go ry 4 hours as needed for pain HYDROCODONE-ACETAMINOPHEN 86542011653 No Longer Active Kalpesh Dong MD Active GENERESS FE 0.8-25 MG-MCG CHEW Take one by mouth daily NORETHIN-ETH ESTRADIOL-FE 79537213873 No Longer Active Kalpesh Dogn MD Active HYDROCODONE-ACETAMINOPHEN 7.5-500 MG TABS 1-2 every 4 hours as needed HYDROCODONE-ACETAMINOPHEN 73779866398 No Longer Activ e Kalpesh Dong MD Active FERROUS SULFATE 325 (65 FE) MG TABS 1 tablet by mouth twice yung y FERROUS SULFATE 21364748516 No Longer Active Kalpesh Dong MD Active IBUPROFEN 600 MG TAB 1 po q6-8hr PRN IBUPROFEN 15856870248 No Longer Active Kalpesh Dong MD Active SPIRONOLACTONE 25 MG TAB 1 tablet by mouth daily 01/22 SPIRONOLACTONE 62098163038 No Longer Active Kalpesh Dong MD Acti ve HYDROCODONE-ACETAMINOPHEN 7.5-325 MG TABS 1 po QID PRN Pain 2011 HYDROCODONE-ACETAMINOPHEN 41252231150 No Longer Active Kalpesh Dnog MD Active CLINDAMYCIN HCL 300 MG CAPS 1 po q6hr x 7 days CLINDAMYCIN HCL 54376551420 No Longer Active Edilberto Marino DO Active PREDNISONE 20 MG TAB 2 tabs daily for 4 days, 1 t ab daily for 4 days, 1/2 tab daily for 4 days PREDNISONE 40055717706 No Longer Active Edilberto Marino DO Active PERCOCET 5-325 MG TABS 1 tablet by mouth every 6 hours as ne eded for pain OXYCODONE-ACETAMINOPHEN 29664382491 No Longer Active Abdirahman Rios MD Active VITAMINS TABS Take one by mouth daily MV & MIN W/FE-FA TABS 66422524159 No Longer Active Abdirahman Rios MD Active LUIS 3-0.02 MG TABS 1 tablet by mouth daily as directed DROSPIRENONE-ETHINYL ESTRADIOL 67313660986 No Longer Active Abdirahman Rios MD Active LORATADINE 10 MG TABS 1 tablet by mouth daily L ORATADINE 96225096709 No Longer Active Kalpesh Dong MD Active HYDROCODONE-ACETAMINOPHEN 5-325 MG TABS 1 po q 6hr PRN Pain 2010 HYDROCODONE-ACETAMINOPHEN 12860891358 No Longer Active Edilberto Marino DO Active BACTRIM DS 800-160 MG TAB 1 tab by mouth twice daily 2 TRIMETHOPRIM-SULFAMETHOXAZOLE 15015747617 No Longer Active Abdirahman Rios MD Active 28-0.8 MG TABS Take one by mouth daily 09/20 VIT-FE FUMARATE-FA 01246308110 No Longer Active Abdirahman Rios MD Active CIPRO 500 MG TAB 1 tablet by mouth twice daily CIPROFLOXACIN HCL 46539966714 No Longer Active Abdirahman Rios MD Active BENADRYL 25 MG CAP 1 po q8hr PRN Congestion DIPHENHYDRAMINE HCL 84620947668 No Longer Active Abdirahman Rios MD Active ZOLOFT 50 MG TAB 1 po qd SERTRALINE HCL 445573 87862 No Longer Active Abdirahman Rios MD Active AMOXICILLIN 875 MG TABS 1 tab by mouth twice daily 201 08/09/13 AMOXICILLIN 97962548058 No Longer Active Abdirahman Rios MD Activ e AMOXICILLIN 875 MG TABS 1 tab by mouth twice daily 201 07/19/27 AMOXICILLIN 09758319410 No Longer Active Abdirahman Rios MD Activ e BACTRIM DS 800-160 MG TAB 2 tab by mouth twice daily 2 TRIMETHOPRIM-SULFAMETHOXAZOLE 11517939588 No Longer Active Abdirahman Rios MD Active KEFLEX 500 MG CAP 1 po tid x 10 days CEPHALEXIN 77548758621 No Longer Active Abdirahman Rios MD Active AMOXICILLIN 875 MG TABS 1 tab by mouth twice daily 201 07/18/07 AMOXICILLIN 27927038216 No Longer Active Abdirahman Rios MD Activ e BACTRIM DS 800-160 MG TAB 2 tab by mouth twice daily 2 BACTRIM DS 800-160 MG TAB TRIMETHOPRIM-SULFAMETHOXAZOLE Inactive ZOLOFT 50 MG TAB 1 po qd ZOLOFT 50 MG TAB 3129 41 SERTRALINE HCL Inactive BENADRYL 25 MG CAP 1 po q8hr PRN Congestion BENADRYL 25 MG CAP 2739111 DIPHENHYDRAMINE HCL Inactive 28-0.8 MG TABS Take one by mouth daily 09/20 28-0.8 MG TABS VIT-FE FUMARATE-FA Inactive HYDROCODONE-ACETAMINOPHEN 5-325 MG TABS 1 po q 6hr PRN Pain 2010 HYDROCODONE-ACETAMINOPHEN 5-325 MG TABS 543935 HYDROCODONE-ACETAMINOPHEN Inactive LORATADINE 10 MG TABS 1 tablet by mouth daily LORATADINE 10 MG TABS 445870 LORATADINE Inactive LUIS 3-0.02 MG TABS 1 tablet by mouth daily as directed LUIS 3-0.02 MG TABS DROSPIRENONE-ETHINYL ESTRADIOL Inactive VITAMINS TABS Take one by mouth daily VITAMINS TABS MV & MIN W/FE-FA TABS Inactive PERCOCET 5-325 MG TABS 1 tablet by mouth every 6 hours as ne eded for pain PERCOCET 5-325 MG TABS 2258058 OXYCODONE-ACETAMIN OPHEN Inactive PREDNISONE 20 MG TAB 2 tabs daily for 4 days, 1 t ab daily for 4 days, 1/2 tab daily for 4 days PREDNISONE 20 MG TAB 998878 PREDNISON E Inactive CLINDAMYCIN HCL 300 MG CAPS 1 po q6hr x 7 days CLINDAMYCIN HCL 300 MG CAPS 078411 CLINDAMYCIN HCL Inactive HYDROCODONE-ACETAMINOPHEN 7.5-325 MG TABS 1 po QID PRN Pain 2011 HYDROCODONE-ACETAMINOPHEN 7.5-325 MG TABS 571453 HYDROCODONE-ACETAMINOPHEN Inactive SPIRONOLACTONE 25 MG TAB 1 tablet by mouth daily 01/22 SPIRONOLACTONE 25 MG TAB 902425 SPIRONOLACTONE Inactive IBUPROFEN 600 MG TAB 1 po q6-8hr PRN IBUPROFEN 600 MG TAB 070258 IBUPROFEN Inactive FERROUS SULFATE 325 (65 FE) MG TABS 1 tablet by mouth twice yung y FERROUS SULFATE 325 (65 FE) MG TABS 995126 FERROUS SULF ATE Inactive HYDROCODONE-ACETAMINOPHEN 7.5-500 MG TABS 1-2 every 4 hours as needed HYDROCODONE-ACETAMINOPHEN 7.5-500 MG TABS 700726 HYDROCODONE-ACETAMINOPHEN Inactive GENERESS FE 0.8-25 MG-MCG CHEW [...] PRN Pain 2011 HYDROCODONE-ACETAMINOPHEN 5-325 MG TABS 770276 HYDROCODONE-ACETAMINOPHEN Inactive DOXYCYCLINE HYCLATE 100 MG CAPS Take one (1) tablet by mouth twice a day DOXYCYCLINE HYCLATE 100 MG CAPS 649049 DOXYCYCLINE HYCLATE Inactive PENICILLIN V POTASSIUM 500 MG TAB 1 four times a day 2 PENICILLIN V POTASSIUM 500 MG TAB 824786 PENICILLIN V POTASSIUM [place] ctive PRISTIQ 50 MG [id number] 1 po qd PRISTIQ 50 MG [id number] DESVENLAFAXINE SUCCINATE Inactive TYLENOL/CODEINE #3 300-30 MG TAB 1-2 po q6hr PRN Pain TYLENOL/CODEINE #3 300-30 MG TAB 682991 ACETAMINOPHEN-CODEINE Inact krishna CEPHALEXIN 500 MG TABS Take one by mouth four times daily, morning, noon, early evening and bedtime. CEPHALEXIN 500 MG TABS 475550 CEPHALEXIN Inactive LORTAB 5 5-500 MG TABS 1/2 to 1 tablet by mouth go ry 6 hours as needed for pain LORTAB 5 5-500 MG TABS HYDROCODONE-A CETAMINOPHEN Inactive AMITRIPTYLINE HCL 25 MG TAB 1 tab by mouth daily 60 minutes before bedtime AMITRIPTYLINE HCL 25 MG TAB 468330 AMITRIPTYLINE HCL Inactive AMOXICILLIN 500 MG TABS 2 tabs PO bid x 10 d 7 AMOXICILLIN 500 MG TABS 363335 AMOXICILLIN Inactive IMPLANON 68 MG IMPL IMPLANTED IN LEFT ARM IMPLANON 68 MG IMPL ETONOGESTREL Inactive HYDROCODONE-ACETAMINOPHEN 5-325 MG TABS 1 PO tid PRN pain 5 HYDROCODONE-ACETAMINOPHEN 5-325 MG TABS 433460 HYDROCODONE-ACETAMIN OPHEN Inactive BACTRIM DS 800-160 MG TAB 1 tab by mouth twice daily 2 BACTRIM DS 800-160 MG TAB TRIMETHOPRIM-SULFAMETHOXAZOLE Inac tive CEPHALEXIN 500 MG CAPS 1 PO bid x 7 days CEPHALEXIN 500 MG CAPS 010997 CEPHALEXIN Inactive HYDROCODONE-ACETAMINOPHEN 5-325 MG TABS 1 tab by mouth every 6 hours as needed HYDROCODONE-ACETAMINOPHEN 5-325 MG TABS 752823 HYDROCODONE-ACETAMINOPHEN Inactive PROMETHAZINE-CODEINE 6.25-10 MG/5ML SYRP 1 tsp every 6 hrs prn c ough PROMETHAZINE-CODEINE 6.25-10 MG/5ML SYRP 995058 PROMETH AZINE-CODEINE Inactive IBUPROFEN 800 MG TAB 1 pill three times daily as needed for pain IBUPROFEN 800 MG TAB 301082 IBUPROFEN Inactive KEFLEX 500 MG CAP 1 tab po tid KEFLEX 500 MG CAP 817341 CEPHALEXIN Inactive HYDROCODONE-ACETAMINOPHEN 7.5-325 MG TABS 1 four times a day as needed for pain HYDROCODONE-ACETAMINOPHEN 7.5-325 MG TABS 374725 HYDROCODONE-ACETAMINOPHEN Inactive BACTRIM DS 800-160 MG TABS by mouth twice a day 11/05 BACTRIM DS 800-160 MG TABS SULFAMETHOXAZOLE-TRIMETHOPRIM Inactive AMOXICILLIN 875 MG TABS 1 tab by mouth twice daily 201 07/18/07 AMOXICILLIN 875 MG TABS 662583 AMOXICILLIN Inactive KEFLEX 500 MG CAP 1 po tid x 10 days KEFLEX 500 MG CAP 093350 CEPHALEXIN Inactive AMOXICILLIN 875 MG TABS 1 tab by mouth twice daily 201 07/19/27 AMOXICILLIN 875 MG TABS 289574 AMOXICILLIN Inactive AMOXICILLIN 875 MG TABS 1 tab by mouth twice daily 08/09/13 AMOXICILLIN 875 MG TABS 965565 AMOXICILLIN Inactive CIPRO 500 MG TAB 1 tablet by mouth twice daily CIPRO 500 MG TAB 153968 CIPROFLOXACIN HCL Inactive BACTRIM DS 800-160 MG TAB 1 tab by mouth twice daily 2 BACTRIM DS 800-160 MG TAB TRIMETHOPRIM-SULFAMETHOXAZOLE Inac tive LEVAQUIN 500 MG TABS 1 PO q day x 7 days LEVAQUIN 500 MG TABS 748551 LEVOFLOXACIN Inactive Advance Directives Directive Description Start Date PERMISSION TO SHARE Immunizations Vaccine Administration Date Value Standard Alf cription Seasonal influenza vaccine, injectable, containing preservative, for > 3 years old (Afluria, FluLaval, Fluzone, Fluvirin, Fluarix, Agriflu(>= 18 yo)) Fluzone (>3 yrs.) [[id number]] Influenza, seasonal, inject able Seasonal influenza vaccine, injectable, preservative free, for > 3 years old (Afluria, FluLaval, Fluzone, Fluvirin, Fluarix, Agriflu(>= 18 yo)) Fluzone preservative free (>3 yrs.) [[id number]] Influenza, seasonal, injectable, preservative free Seasonal influenza vaccine, injectable, containing preservative, for > 3 years old (Afluria, FluLaval, Fluzone, Fluvirin, Fluarix, Agriflu(>= 18 yo)) Fluzone (>3 yrs.) [[id number]] Influenza, seasonal, inject able Seasonal influenza vaccine, injectable, containing preservative, for > 3 years old (Afluria, FluLaval, Fluzone, Fluvirin, Fluarix, Agriflu(>= 18 yo)) Fluzone (>3 yrs.) [[id number]] Influenza, seasonal, inject able dT (Diphtheria and Tetanus) booster Historical Td(adult) unspecified formulation Vital Signs Date Name Value Unit Range Description blood pressure, diastolic 93 mm[Hg] BP ribeiro blood pressure, systolic 128 mm[Hg] BP sys height E&M 66 [in_us] Bdy height pulse rate E&M 90 /min Heart rate temperature E&M 96.7 [degF] Body temp erature weight E&M 240 [lb_av] Weight Measure d blood pressure, diastolic 84 mm[Hg] BP ribeiro blood pressure, systolic 131 mm[Hg] BP sys height E&M 66 [in_us] Bdy height pulse rate E&M 92 /min Heart rate temperature E&M 97.3 [degF] Body temp erature weight E&M 235.2 [lb_av] Weight Measure d blood pressure, diastolic 81 mm[Hg] BP ribeiro blood pressure, systolic 121 mm[Hg] BP sys height E&M 66 [in_us] Bdy height pulse rate E&M 91 /min Heart rate temperature E&M 98.2 [degF] Body temp erature weight E&M 237.2 [lb_av] Weight Measure d blood pressure, diastolic 83 mm[Hg] BP ribeiro blood pressure, systolic 124 mm[Hg] BP sys height E&M 66 [in_us] Bdy height pulse rate E&M 90 /min Heart rate temperature E&M 97.2 [degF] Body temp erature weight E&M 237.4 [lb_av] Weight Measure d blood pressure, diastolic 80 mm[Hg] BP ribeiro blood pressure, systolic 120 mm[Hg] BP sys height E&M 66 [in_us] Bdy height pulse rate E&M 96 /min Heart rate weight E&M 236 [lb_av] Weight Measure d blood pressure, diastolic 70 mm[Hg] BP ribeiro blood pressure, systolic 115 mm[Hg] BP sys height E&M 66 [in_us] Bdy height pulse rate E&M 75 /min Heart rate temperature E&M 97.6 [degF] Body temp erature weight E&M 244 [lb_av] Weight Measure d blood pressure, diastolic 85 mm[Hg] BP ribeiro blood pressure, systolic 140 mm[Hg] BP sys height E&M 66 [in_us] Bdy height pulse rate E&M 71 /min Heart rate temperature E&M 97.2 [degF] Body temp erature weight E&M 238.13 [lb_av] Weight Measure d blood pressure, diastolic 81 mm[Hg] BP ribeiro blood pressure, systolic 124 mm[Hg] BP sys height E&M 66 [in_us] Bdy height pulse rate E&M 73 /min Heart rate temperature E&M 96.3 [degF] Body temp erature weight E&M 237.4 [lb_av] Weight Measure d blood pressure, diastolic, supine 75 mm[Hg] BP ribeiro blood pressure, systolic, supine E&M 133 mm[Hg] BP sys height E&M 66 [in_us] Bdy height pulse rate E&M 87 /min Heart rate temperature E&M 99.0 [degF] Body temp erature weight E&M 235 [lb_av] Weight Measure d blood pressure, diastolic 78 mm[Hg] BP ribeiro blood pressure, systolic 114 mm[Hg] BP sys height E&M 66 [in_us] Bdy height pulse rate E&M 86 /min Heart rate temperature E&M 97.3 [degF] Body temp erature weight E&M 238.38 [lb_av] Weight Measure d blood pressure, diastolic 83 mm[Hg] BP ribeiro blood pressure, systolic 142 mm[Hg] BP sys height E&M 66 [in_us] Bdy height pulse rate E&M 69 /min Heart rate temperature E&M 98.4 [degF] Body temp erature weight E&M 240 [lb_av] Weight Measure d blood pressure, diastolic 84 mm[Hg] BP ribeiro blood pressure, systolic 125 mm[Hg] BP sys height E&M 66 [in_us] Bdy height pulse rate E&M 81 /min Heart rate temperature E&M 98.5 [degF] Body temp erature weight E&M 236 [lb_av] Weight Measure d blood pressure, diastolic 81 mm[Hg] BP ribeiro blood pressure, systolic 124 mm[Hg] BP sys height E&M 66 [in_us] Bdy height pulse rate E&M 85 /min Heart rate temperature E&M 98.6 [degF] Body temp erature weight E&M 237.25 [lb_av] Weight Measure d blood pressure, diastolic 81 mm[Hg] BP ribeiro blood pressure, systolic 124 mm[Hg] BP sys height E&M 66 [in_us] Bdy height pulse rate E&M 69 /min Heart rate temperature E&M 98.1 [degF] Body temp erature weight E&M 237 [lb_av] Weight Measure d blood pressure, diastolic 86 mm[Hg] BP ribeiro blood pressure, systolic 136 mm[Hg] BP sys height E&M 66 [in_us] Bdy height pulse rate E&M 77 /min Heart rate temperature E&M 97.8 [degF] Body temp erature weight E&M 236.4 [lb_av] Weight Measure d blood pressure, diastolic 86 mm[Hg] BP ribeiro blood pressure, systolic 122 mm[Hg] BP sys height E&M 66 [in_us] Bdy height pulse rate E&M 63 /min Heart rate temperature E&M 96 [degF] Body temp erature weight E&M 240.6 [lb_av] Weight Measure d Diagnostic Results Date Name Value Unit Range Description Chart Maintenance: Outside labs entered on flowsheet - Chemistry sodium, serum 139 mmol/L potassium, serum 3.9 mmol/L chloride, serum 103 mmol/L carbon dioxide, venous blood 26.1 mmol/L urea nitrogen, blood 5 mg/dL blood glucose 89 mg/dL creatinine, serum 0.73 mg/dL calcium, serum 9.1 mg/dL Chart Maintenance: Outside labs entered on [facility] - Hematology leukocyte count, blood 8.3 10*3/mm3 erythrocyte (RBC) count 5.2 10*6/mm3 hemoglobin, blood 14.2 g/dL hematocrit, blood 42.6 % mean corpuscular volume, RBC 82.4 fL mean corpuscular hemoglobin, RBC 27.5 pg red blood cell distribution width 12.9 % platelet count 316 10*3/mm3 Lab Report: CBC W/DIFF, Comp. Metabolic Panel, Thyroid Stimulating Hormo ... - Chemistry sodium, serum 140 mmol/L 247-728 5960/02/24 potassium, serum 4.3 mmol/L 3.5-5.2 chloride, serum [...] 4.3-6.0 Lab Report: T3, TOTAL, INSULIN - Transportation Planner ry triiodothyronine, serum 78 ng/dL 76-181 Lab Report: UADIP [...] mg/dL Encounters Code Encounter Date Provider Facility CPT-30401 Level 3 Est. Patient 14:11:58 CDT Kalpesh goins MD [facility] CPT-17781 Level 3 Est. Patient 16:50:00 CDT Michelle MERCADO [facility] CPT-25925 Level 3 Est. Patient 17:11:32 STUDIO OPERATIONS ENGINEER IN CHARGE Brandie bates MD PhD [facility] CPT-56550 Level 3 Est. Patient 16:31:47 STUDIO OPERATIONS ENGINEER IN CHARGE Shola MCGILL [facility] CPT-21493 Level 3 Est. Patient 17:51:10 STUDIO OPERATIONS ENGINEER IN CHARGE Abhinav Galvan MD [facility] CPT-66691 Level 4 Est. Patient 12:54:56 STUDIO OPERATIONS ENGINEER IN CHARGE Kalpesh goins MD [facility] CPT-99712 Level 4 Est. Patient 12:53:56 STUDIO OPERATIONS ENGINEER IN CHARGE Kalpesh goins MD [facility] CPT-17948 Level 3 Est. Patient 17:56:58 CDT Shola MCGILL [facility] CPT-83603 Level 3 Est. Patient 14:26:20 CDT Janak butcher [facility] CPT-99584 Level 3 Est. Patient 09:38:41 CDT Shola Wright [facility] CPT-79054 Level 3 Est. Patient 14:45:26 CDT Edilberto tiwari [facility] CPT-27003 Level 3 Est. Patient 10:51:33 CDT Hira muniz [facility] CPT-76844 Level 3 Est. Patient 11:57:55 STUDIO OPERATIONS ENGINEER IN CHARGE Shola Thao Adriana [facility] CPT-12580 Level 3 Est. Patient 09:53:33 STUDIO OPERATIONS ENGINEER IN CHARGE Edilberto tiwari [facility] CPT-43206 Level 3 Est. Patient 14:42:54 STUDIO OPERATIONS ENGINEER IN CHARGE Abhinav Galvan MD [facility] CPT-08871 Level 3 Est. Patient 15:10:02 CDT Janak butcher [facility] CPT-38366 Level 3 Est. Patient 15:20:20 CDT Theo dennis MD [facility] CPT-40127 Level 2 Est. Patient 14:08:57 CDT Kalpesh goins MD [facility] CPT-36333 Level 3 Est. Patient 13:56:19 CDT Abdirahman Rios MD [facility] CPT-60456 Level 3 Est. Patient 13:59:37 CDT Abdirahman Rios MD [facility] CPT-05663 Level 2 Est. Patient 14:44:59 CDT Kalpesh goins MD [facility]-28320 Level 3 Est. Patient 06:06:23 CDT Edilberto tiwari [facility] CPT-51038 Level 3 Est. Patient 15:23:54 CDT Abdirahman Rios MD [facility] CPT-16756 Level 3 Est. Patient 15:43:49 CDT Abdirahman Rios MD [facility] CPT-55194 Level 3 Est. Patient 12:46:47 STUDIO OPERATIONS ENGINEER IN CHARGE Abdirahman Rios MD [facility] CPT-74204 Level 3 Est. Patient 08:13:35 STUDIO OPERATIONS ENGINEER IN CHARGE Abdirahman Rios MD [facility] CPT-32312 Level 2 Est. Patient 09:36:42 STUDIO OPERATIONS ENGINEER IN CHARGE Abdirahman Rios MD [facility] CPT-79060 Level 3 Est. Patient 10:56:43 CDT Abdirahman Rios MD [facility] CPT-76537 Level 3 Est. Patient 18:24:52 CDT Abdirahman Rios MD [facility] CPT-52927 Level 3 Est. Patient 13:27:22 CDT Abdirahman Rios MD [facility] Procedures Code Procedure Name Date Entry Date Standard Desc ription CPT-OV Office Visit 15:34:48 CDT CPT-31681 Postop F/U Visit 14:50:12 CDT CPT-84077 Postop F/U Visit 14:41:10 CDT CPT-44760 Venipuncture Draw Fee 11:38:04 STUDIO OPERATIONS ENGINEER IN CHARGE CPT-35461 Postop F/U Visit 19:02:59 STUDIO OPERATIONS ENGINEER IN CHARGE CPT-31906 Postop F/U Visit 12:04:54 STUDIO OPERATIONS ENGINEER IN CHARGE CPT-45344 Administration single or combination vac cine inc oral 15:56:43 CDT CPT-42369 Influenza split virus > age 3 15:56:43 CDT CPT-95164 Hand comp min 3V 14:25:19 CDT CPT-25501 Postop F/U Visit 21:40:51 CDT CPT-39878 Postop F/U Visit 10:58:43 CDT CPT-31904 Administration single or combination vac cine inc oral 12:33:54 STUDIO OPERATIONS ENGINEER IN CHARGE CPT-43272 Influenza Preservative Free split virus >age 3 12:33:54 STUDIO OPERATIONS ENGINEER IN CHARGE CPT-29498 Administration single or combination vac cine inc oral 09:30:51 CDT CPT-18244 Influenza split virus > age 3 09:30:51 CDT CPT-10681 Postop F/U Visit 15:14:53 CDT CPT-37313 Postop F/U Visit 13:50:14 CDT CPT-13309 Postop F/U Visit 13:34:52 CDT CPT-OV Office Visit 16:55:03 CDT CPT-99031 Gepp of cervix w bx ECC 13:32:50 CDT 10/19 CPT-J1885 Toradol 60 mg (Ketorolac) 15:31:59 CDT 2011 CPT-J1885 Toradol 60 mg (Ketorolac) 15:23:54 CDT 2011 CPT-71314 Visit 11:34:37 STUDIO OPERATIONS ENGINEER IN CHARGE CPT-48252 Visit 10:52:39 STUDIO OPERATIONS ENGINEER IN CHARGE CPT-69086 Visit 10:12:02 STUDIO OPERATIONS ENGINEER IN CHARGE CPT-87295 Visit 11:22:43 STUDIO OPERATIONS ENGINEER IN CHARGE CPT-20451 Visit 11:24:12 STUDIO OPERATIONS ENGINEER IN CHARGE CPT-11488 Visit 10:47:05 STUDIO OPERATIONS ENGINEER IN CHARGE CPT-OV Office Visit 10:26:16 STUDIO OPERATIONS ENGINEER IN CHARGE CPT-OV Office Visit 15:34:31 STUDIO OPERATIONS ENGINEER IN CHARGE CPT-18921 Visit 10:42:08 STUDIO OPERATIONS ENGINEER IN CHARGE CPT-82636 Visit 10:52:45 STUDIO OPERATIONS ENGINEER IN CHARGE CPT-000 Give Appropriate Flu Vaccine 16:56:41 CDT 2 CPT-42940 Administration single or combination vac cine inc oral 10:33:21 CDT CPT-69610 Influenza split virus > age 3 10:33:21 CDT CPT-01070 Visit 13:23:09 CDT CPT-14567 Visit 18:24:52 CDT CPT-93250 Sono OB comp > 14 weeks 12:07:49 CDT 04/07
--- OUTSIDE RECORDS SUMMARY | 2020-01-18 16:43 | XMS REPORT | Clinical Summary ---
Author Author Admin, Jeri Rashid Organization [facility] Address Unknown Phone Allergies, Adverse Reactions, Alerts [...] by mouth twice a day 11/05 SULFAMETHOXAZOLE-TRIMETHOPRIM [id number] No Longer Active Good Julian MD Active IBUPROFEN 800 MG TABS 1 tid prn IBUPROFEN 44853290979 Active Good Julian MD Active ENDOCET 10-325 MG TABS 1 q 6 hr prn OXYCODONE-A CETAMINOPHEN 65146067884 Active Shola MCGILL Active HYDROCODONE-ACETAMINOPHEN 7.5-325 MG TABS 1 four times a day as needed for pain HYDROCODONE-ACETAMINOPHEN 67746321913 No Longer Activ crystal Julian MD Active KEFLEX 500 MG CAP 1 tab po tid CEPHALEXIN 745846 30519 No Longer Active Hira Moser APRN Active IBUPROFEN 800 MG TAB 1 pill three times daily as needed for pain IBUPROFEN 49295147225 No Longer Active Kalpesh Dong MD Active PROMETHAZINE-CODEINE 6.25-10 MG/5ML SYRP 1 tsp every 6 hrs prn c ough PROMETHAZINE-CODEINE 11841805569 No Longer Active Kalpesh Carr Active ALPRAZOLAM 0.5 MG TABS 1 PO bid PRN ALPRAZOLAM 993755 31733 Active Shola MCGILL Active HYDROCODONE-ACETAMINOPHEN 5-325 MG TABS 1 tab by mouth every 6 hours as needed HYDROCODONE-ACETAMINOPHEN 00215982456 No Longer Activ e Shola MCGILL Active CEPHALEXIN 500 MG CAPS 1 PO bid x 7 days CEPHAL EXIN 14198506191 No Longer Active Shola MCGILL Active BACTRIM DS 800-160 MG TAB 1 tab by mouth twice daily 2 TRIMETHOPRIM-SULFAMETHOXAZOLE 41812474746 No Longer Active Kalpesh Dong MD Active HYDROCODONE-ACETAMINOPHEN 5-325 MG TABS 1 PO tid PRN pain 5 HYDROCODONE-ACETAMINOPHEN 30439054601 No Longer Active Abhinav Galvan MD Active IMPLANON 68 MG IMPL IMPLANTED IN LEFT ARM ETONO GESTREL 31405724058 No Longer Active 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 JAVA SUPPORT ENGINEER Active AMOXICILLIN 500 MG TABS 2 tabs PO bid x 10 d AM OXICILLIN 68933386620 No Longer Active Kalpesh Dong MD Active LEVAQUIN 500 MG TABS 1 PO q day x 7 days LEVOFL OXACIN 40971531833 No Longer Active Shola MCGILL Active PROAIR HFA 108 (90 BASE) MCG/ACT AERS 2 puff q 4-6 hrs PRN ALBUTEROL SULFATE 86160143784 Active Shola MCGILL Acti ve FIORICET 50-325-40 MG TABS 2 PO q 8 hrs PRN FOSTER [id number] 26307365995 Active Abdirahman Rios MD Active AMITRIPTYLINE HCL 25 MG TAB 1 tab by mouth daily 60 minutes before bedtime AMITRIPTYLINE HCL 97654662235 No Longer Active Shola MCGILL Active LORTAB 5 5-500 MG TABS 1/2 to 1 tablet by mouth go ry 6 hours as needed for pain HYDROCODONE-ACETAMINOPHEN 42523439137 No Longer Active Shola MCGILL Active CEPHALEXIN 500 MG TABS Take one by mouth four times daily, morning, noon, early evening and bedtime. CEPHALEXIN 03808227885 No Long er Active Hira Moser JAVA SUPPORT ENGINEER Active TYLENOL/CODEINE #3 300-30 MG TAB 1-2 po q6hr PRN Pain ACETAMINOPHEN-CODEINE 01561776162 No Longer Active Edilberto Marino DO Active PRISTIQ 50 MG [id number] 1 po qd DESVENLAFAXI NE SUCCINATE 36180893023 No Longer Active Edilberto Marino DO Active PENICILLIN V POTASSIUM 500 MG TAB 1 four times a day 2 PENICILLIN V POTASSIUM 47775986234 No Longer Active Edilberto Marino DO Active DOXYCYCLINE HYCLATE 100 MG CAPS Take one (1) tablet by mouth twice a day DOXYCYCLINE HYCLATE 84129589691 No Longer Active Ronnie Galvan MD Active HYDROCODONE-ACETAMINOPHEN 5-325 MG TABS 1 po q 6hr PRN Pain 2011 HYDROCODONE-ACETAMINOPHEN 47319076733 No Longer Active Patri joan Perez RN Active BACTRIM DS 800-160 MG TAB 1 tab by mouth twice daily 2 TRIMETHOPRIM-SULFAMETHOXAZOLE 93452544864 No Longer Active Kalpesh Dong MD Active LORTAB 5 5-500 MG TABS 1/2 to 1 tablet by mouth go ry 4 hours as needed for pain HYDROCODONE-ACETAMINOPHEN 02396690960 No Longer Active Kalpesh Dong MD Active GENERESS FE 0.8-25 MG-MCG CHEW Take one by mouth daily NORETHIN-ETH ESTRADIOL-FE 00975773922 No Longer Active Kalpesh Dong MD Active HYDROCODONE-ACETAMINOPHEN 7.5-500 MG TABS 1-2 every 4 hours as needed HYDROCODONE-ACETAMINOPHEN 45864061779 No Longer Activ e Kalpesh Dong MD Active FERROUS SULFATE 325 (65 FE) MG TABS 1 tablet by mouth twice yung y FERROUS SULFATE 15602366513 No Longer Active Kalpesh Dong MD Active IBUPROFEN 600 MG TAB 1 po q6-8hr PRN IBUPROFEN 82007948960 No Longer Active Kalpesh Dong MD Active SPIRONOLACTONE 25 MG TAB 1 tablet by mouth daily 01/22 SPIRONOLACTONE 30178041505 No Longer Active Kalpesh Dong MD Acti ve HYDROCODONE-ACETAMINOPHEN 7.5-325 MG TABS 1 po QID PRN Pain 2011 HYDROCODONE-ACETAMINOPHEN 16296943864 No Longer Active Kalpesh Dong MD Active CLINDAMYCIN HCL 300 MG CAPS 1 po q6hr x 7 days CLINDAMYCIN HCL 75762829118 No Longer Active Edilberto Marino DO Active PREDNISONE 20 MG TAB 2 tabs daily for 4 days, 1 t ab daily for 4 days, 1/2 tab daily for 4 days PREDNISONE 13184490983 No Longer Active Edilberto Marino DO Active PERCOCET 5-325 MG TABS 1 tablet by mouth every 6 hours as ne eded for pain OXYCODONE-ACETAMINOPHEN 53385995483 No Longer Active Abdirahman Rios MD Active VITAMINS TABS Take one by mouth daily MV & MIN W/FE-FA TABS 88808411570 No Longer Active Abdirahman Rios MD Active LUIS 3-0.02 MG TABS 1 tablet by mouth daily as directed DROSPIRENONE-ETHINYL ESTRADIOL 51981022541 No Longer Active Abdirahman iRos MD Active LORATADINE 10 MG TABS 1 tablet by mouth daily L ORATADINE 03790930474 No Longer Active Kalpesh Dong MD Active HYDROCODONE-ACETAMINOPHEN 5-325 MG TABS 1 po q 6hr PRN Pain 2010 HYDROCODONE-ACETAMINOPHEN 01669211579 No Longer Active Edilberto Marino DO Active BACTRIM DS 800-160 MG TAB 1 tab by mouth twice daily 2 TRIMETHOPRIM-SULFAMETHOXAZOLE 16158419458 No Longer Active Abdirahman Rios MD Active 28-0.8 MG TABS Take one by mouth daily 09/20 VIT-FE FUMARATE-FA 66132783153 No Longer Active Abdirahman Rios MD Active CIPRO 500 MG TAB 1 tablet by mouth twice daily CIPROFLOXACIN HCL 91244586544 No Longer Active Abdirahman Rios MD Active BENADRYL 25 MG CAP 1 po q8hr PRN Congestion DIPHENHYDRAMINE HCL 58929861686 No Longer Active Abdirahman Rios MD Active ZOLOFT 50 MG TAB 1 po qd SERTRALINE HCL 864130 06953 No Longer Active Abdirahman Rios MD Active AMOXICILLIN 875 MG TABS 1 tab by mouth twice daily 201 08/09/13 AMOXICILLIN 68461207671 No Longer Active Abdirahman Rios MD Activ e AMOXICILLIN 875 MG TABS 1 tab by mouth twice daily 201 07/19/27 AMOXICILLIN 31732261290 No Longer Active Abdirahman Rios MD Activ e BACTRIM DS 800-160 MG TAB 2 tab by mouth twice daily 2 TRIMETHOPRIM-SULFAMETHOXAZOLE 37354918473 No Longer Active Abdirahman Rios MD Active KEFLEX 500 MG CAP 1 po tid x 10 days CEPHALEXIN 55858081145 No Longer Active Abdirahman Rios MD Active AMOXICILLIN 875 MG TABS 1 tab by mouth twice daily 201 07/18/07 AMOXICILLIN 56639328844 No Longer Active Abdirahman Rios MD Activ e BACTRIM DS 800-160 MG TAB 2 tab by mouth twice daily 2 BACTRIM DS 800-160 MG TAB TRIMETHOPRIM-SULFAMETHOXAZOLE Inactive ZOLOFT 50 MG TAB 1 po qd ZOLOFT 50 MG TAB 3129 41 SERTRALINE HCL Inactive BENADRYL 25 MG CAP 1 po q8hr PRN Congestion BENADRYL 25 MG CAP 1144150 DIPHENHYDRAMINE HCL Inactive 28-0.8 MG TABS Take one by mouth daily 09/20 28-0.8 MG TABS VIT-FE FUMARATE-FA Inactive HYDROCODONE-ACETAMINOPHEN 5-325 MG TABS 1 po q 6hr PRN Pain 2010 HYDROCODONE-ACETAMINOPHEN 5-325 MG TABS 352861 HYDROCODONE-ACETAMINOPHEN Inactive LORATADINE 10 MG TABS 1 tablet by mouth daily LORATADINE 10 MG TABS 095916 LORATADINE Inactive LUIS 3-0.02 MG TABS 1 tablet by mouth daily as directed LUIS 3-0.02 MG TABS DROSPIRENONE-ETHINYL ESTRADIOL Inactive VITAMINS TABS Take one by mouth daily VITAMINS TABS MV & MIN W/FE-FA TABS Inactive PERCOCET 5-325 MG TABS 1 tablet by mouth every 6 hours as ne eded for pain PERCOCET 5-325 MG TABS 6877032 OXYCODONE-ACETAMIN OPHEN Inactive PREDNISONE 20 MG TAB 2 tabs daily for 4 days, 1 t ab daily for 4 days, 1/2 tab daily for 4 days PREDNISONE 20 MG TAB 667184 PREDNISON E Inactive CLINDAMYCIN HCL 300 MG CAPS 1 po q6hr x 7 days CLINDAMYCIN HCL 300 MG CAPS 295529 CLINDAMYCIN HCL Inactive HYDROCODONE-ACETAMINOPHEN 7.5-325 MG TABS 1 po QID PRN Pain 2011 HYDROCODONE-ACETAMINOPHEN 7.5-325 MG TABS 451665 HYDROCODONE-ACETAMINOPHEN Inactive SPIRONOLACTONE 25 MG TAB 1 tablet by mouth daily 01/22 SPIRONOLACTONE 25 MG TAB 687971 SPIRONOLACTONE Inactive IBUPROFEN 600 MG TAB 1 po q6-8hr PRN IBUPROFEN 600 MG TAB 138686 IBUPROFEN Inactive FERROUS SULFATE 325 (65 FE) MG TABS 1 tablet by mouth twice yung y FERROUS SULFATE 325 (65 FE) MG TABS 966226 FERROUS SULF ATE Inactive HYDROCODONE-ACETAMINOPHEN 7.5-500 MG TABS 1-2 every 4 hours as needed HYDROCODONE-ACETAMINOPHEN 7.5-500 MG TABS 951601 HYDROCODONE-ACETAMINOPHEN Inactive GENERESS FE 0.8-25 MG-MCG CHEW [...] PRN Pain 2011 HYDROCODONE-ACETAMINOPHEN 5-325 MG TABS 937628 HYDROCODONE-ACETAMINOPHEN Inactive DOXYCYCLINE HYCLATE 100 MG CAPS Take one (1) tablet by mouth twice a day DOXYCYCLINE HYCLATE 100 MG CAPS 476247 DOXYCYCLINE HYCLATE Inactive PENICILLIN V POTASSIUM 500 MG TAB 1 four times a day 2 PENICILLIN V POTASSIUM 500 MG TAB 403240 PENICILLIN V POTASSIUM [place] ctive PRISTIQ 50 MG [id number] 1 po qd PRISTIQ 50 MG [id number] DESVENLAFAXINE SUCCINATE Inactive TYLENOL/CODEINE #3 300-30 MG TAB 1-2 po q6hr PRN Pain TYLENOL/CODEINE #3 300-30 MG TAB 427747 ACETAMINOPHEN-CODEINE Inact krishna CEPHALEXIN 500 MG TABS Take one by mouth four times daily, morning, noon, early evening and bedtime. CEPHALEXIN 500 MG TABS 319530 CEPHALEXIN Inactive LORTAB 5 5-500 MG TABS 1/2 to 1 tablet by mouth go ry 6 hours as needed for pain LORTAB 5 5-500 MG TABS HYDROCODONE-A CETAMINOPHEN Inactive AMITRIPTYLINE HCL 25 MG TAB 1 tab by mouth daily 60 minutes before bedtime AMITRIPTYLINE HCL 25 MG TAB 362337 AMITRIPTYLINE HCL Inactive AMOXICILLIN 500 MG TABS 2 tabs PO bid x 10 d 7 AMOXICILLIN 500 MG TABS 786189 AMOXICILLIN Inactive IMPLANON 68 MG IMPL IMPLANTED IN LEFT ARM IMPLANON 68 MG IMPL ETONOGESTREL Inactive HYDROCODONE-ACETAMINOPHEN 5-325 MG TABS 1 PO tid PRN pain 5 HYDROCODONE-ACETAMINOPHEN 5-325 MG TABS 582945 HYDROCODONE-ACETAMIN OPHEN Inactive BACTRIM DS 800-160 MG TAB 1 tab by mouth twice daily 2 BACTRIM DS 800-160 MG TAB TRIMETHOPRIM-SULFAMETHOXAZOLE Inac tive CEPHALEXIN 500 MG CAPS 1 PO bid x 7 days CEPHALEXIN 500 MG CAPS 381423 CEPHALEXIN Inactive HYDROCODONE-ACETAMINOPHEN 5-325 MG TABS 1 tab by mouth every 6 hours as needed HYDROCODONE-ACETAMINOPHEN 5-325 MG TABS 781903 HYDROCODONE-ACETAMINOPHEN Inactive PROMETHAZINE-CODEINE 6.25-10 MG/5ML SYRP 1 tsp every 6 hrs prn c ough PROMETHAZINE-CODEINE 6.25-10 MG/5ML SYRP 340796 PROMETH AZINE-CODEINE Inactive IBUPROFEN 800 MG TAB 1 pill three times daily as needed for pain IBUPROFEN 800 MG TAB 054958 IBUPROFEN Inactive KEFLEX 500 MG CAP 1 tab po tid KEFLEX 500 MG CAP 030491 CEPHALEXIN Inactive HYDROCODONE-ACETAMINOPHEN 7.5-325 MG TABS 1 four times a day as needed for pain HYDROCODONE-ACETAMINOPHEN 7.5-325 MG TABS 983955 HYDROCODONE-ACETAMINOPHEN Inactive BACTRIM DS 800-160 MG TABS by mouth twice a day 11/05 BACTRIM DS 800-160 MG TABS SULFAMETHOXAZOLE-TRIMETHOPRIM Inactive AMOXICILLIN 875 MG TABS 1 tab by mouth twice daily 201 07/18/07 AMOXICILLIN 875 MG TABS 908870 AMOXICILLIN Inactive KEFLEX 500 MG CAP 1 po tid x 10 days KEFLEX 500 MG CAP 054658 CEPHALEXIN Inactive AMOXICILLIN 875 MG TABS 1 tab by mouth twice daily 201 07/19/27 AMOXICILLIN 875 MG TABS 040375 AMOXICILLIN Inactive AMOXICILLIN 875 MG TABS 1 tab by mouth twice daily 08/09/13 AMOXICILLIN 875 MG TABS 090193 AMOXICILLIN Inactive CIPRO 500 MG TAB 1 tablet by mouth twice daily CIPRO 500 MG TAB 358900 CIPROFLOXACIN HCL Inactive BACTRIM DS 800-160 MG TAB 1 tab by mouth twice daily 2 BACTRIM DS 800-160 MG TAB TRIMETHOPRIM-SULFAMETHOXAZOLE Inac tive LEVAQUIN 500 MG TABS 1 PO q day x 7 days LEVAQUIN 500 MG TABS 973576 LEVOFLOXACIN Inactive Advance Directives Directive Description Start Date PERMISSION TO SHARE Immunizations Vaccine Administration Date Value Standard Alf cription Seasonal influenza vaccine, injectable, containing preservative, for > 3 years old (Afluria, FluLaval, Fluzone, Fluvirin, Fluarix, Agriflu(>= 18 yo)) Fluzone (>3 yrs.) [[id number]] Influenza, seasonal, inject able Seasonal influenza vaccine, injectable, preservative free, for > 3 years old (Afluria, FluLaval, Fluzone, Fluvirin, Fluarix, Agriflu(>= 18 yo)) Fluzone preservative free (>3 yrs.) [[id number]] Influenza, seasonal, injectable, preservative free Seasonal influenza vaccine, injectable, containing preservative, for > 3 years old (Afluria, FluLaval, Fluzone, Fluvirin, Fluarix, Agriflu(>= 18 yo)) Fluzone (>3 yrs.) [[id number]] Influenza, seasonal, inject able Seasonal influenza vaccine, injectable, containing preservative, for > 3 years old (Afluria, FluLaval, Fluzone, Fluvirin, Fluarix, Agriflu(>= 18 yo)) Fluzone (>3 yrs.) [[id number]] Influenza, seasonal, inject able dT (Diphtheria and [...] mg/dL Chart Maintenance: Outside labs entered on [employer] - Hematology leukocyte count, blood 8.3 10*3/mm3 erythrocyte (RBC) count 5.2 10*6/mm3 hemoglobin, blood 14.2 g/dL hematocrit, blood 42.6 % mean corpuscular volume, RBC 82.4 fL mean corpuscular hemoglobin, RBC 27.5 pg red blood cell distribution width 12.9 % platelet count 316 10*3/mm3 Lab Report: CBC W/DIFF, Comp. Metabolic Panel, Thyroid Stimulating Hormo ... - Chemistry sodium, serum 140 mmol/L 865-317 4312/02/24 potassium, serum 4.3 mmol/L 3.5-5.2 chloride, serum [...] 4.3-6.0 Lab Report: T3, TOTAL, INSULIN - Floor Nurse ry triiodothyronine, serum 78 ng/dL 76-181 Lab [...] mg/dL Encounters Code Encounter Date Provider Facility CPT-02572 Level 3 Est. Patient 14:11:58 CDT Kalpesh goins MD [facility] CPT-22925 Level 3 Est. Patient 16:50:00 CDT Michelle MERCADO [facility] CPT-09743 Level 3 Est. Patient 17:11:32 COLOR WORKER Brandie bates MD PhD [facility] CPT-64721 Level 3 Est. Patient 16:31:47 COLOR WORKER Shola MCGILL [facility] CPT-58407 Level 3 Est. Patient 17:51:10 COLOR WORKER Abhinav Galvan MD [facility] CPT-93709 Level 4 Est. Patient 12:54:56 COLOR WORKER Kalpesh goins MD [facility] CPT-50379 Level 4 Est. Patient 12:53:56 COLOR WORKER Kalpesh goins MD [facility] CPT-75390 Level 3 Est. Patient 17:56:58 CDT Shola MCGILL [facility] CPT-60673 Level 3 Est. Patient 14:26:20 CDT Janak butcher [facility] CPT-80202 Level 3 Est. Patient 09:38:41 CDT Shola Wright [facility] CPT-46238 Level 3 Est. Patient 14:45:26 CDT Edilberto tiwari [facility] CPT-85672 Level 3 Est. Patient 10:51:33 CDT Hira muniz [facility][note 3] CPT-05154 Level 3 Est. Patient 11:57:55 COLOR WORKER Shola Thao Adriana [facility] CPT-89204 Level 3 Est. Patient 09:53:33 COLOR WORKER Edilberto tiwari [facility] CPT-40463 Level 3 Est. Patient 14:42:54 COLOR WORKER Abhinav Galvan MD [facility] CPT-79638 Level 3 Est. Patient 15:10:02 CDT Janak butcher [facility] CPT-84756 Level 3 Est. Patient 15:20:20 CDT Theo dennis MD [facility] CPT-53203 Level 2 Est. Patient 14:08:57 CDT Kalpesh goins MD [facility] CPT-30273 Level 3 Est. Patient 13:56:19 CDT Abdirahman Rios MD [facility] CPT-63302 Level 3 Est. Patient 13:59:37 CDT Abdirahman Rios MD [facility] CPT-23043 Level 2 Est. Patient 14:44:59 CDT Kalpesh goins MD [facility]-80884 Level 3 Est. Patient 06:06:23 CDT Edilberto tiwari [facility] CPT-67383 Level 3 Est. Patient 15:23:54 CDT Abdirahman Rios MD [facility] CPT-22117 Level 3 Est. Patient 15:43:49 CDT Abdirahman Rios MD [facility] CPT-84434 Level 3 Est. Patient 12:46:47 COLOR WORKER Abdirahman Rios MD [facility] CPT-36048 Level 3 Est. Patient 08:13:35 COLOR WORKER Abdirahman Rois MD [facility] CPT-91519 Level 2 Est. Patient 09:36:42 COLOR WORKER Abidrahman Rios MD [facility] CPT-58048 Level 3 Est. Patient 10:56:43 CDT Abdirahman Rios MD [facility] CPT-50425 Level 3 Est. Patient 18:24:52 CDT Abdirahman Rios MD [facility] CPT-26404 Level 3 Est. Patient 13:27:22 CDT Abdirahman Rios MD [facility] Procedures Code Procedure Name Date Entry Date Standard Desc ription CPT-OV Office Visit 15:34:48 CDT CPT-37477 Postop F/U Visit 14:50:12 CDT CPT-94249 Postop F/U Visit 14:41:10 CDT CPT-15560 Venipuncture Draw Fee 11:38:04 COLOR WORKER CPT-16046 Postop F/U Visit 19:02:59 COLOR WORKER CPT-43543 Postop F/U Visit 12:04:54 COLOR WORKER CPT-94185 Administration single or combination vac cine inc oral 15:56:43 CDT CPT-20653 Influenza split virus > age 3 15:56:43 CDT CPT-58237 Hand comp min 3V 14:25:19 CDT CPT-17815 Postop F/U Visit 21:40:51 CDT CPT-72054 Postop F/U Visit 10:58:43 CDT CPT-49727 Administration single or combination vac cine inc oral 12:33:54 COLOR WORKER CPT-08622 Influenza Preservative Free split virus >age 3 12:33:54 COLOR WORKER CPT-16383 Administration single or combination vac cine inc oral 09:30:51 CDT CPT-10280 Influenza split virus > age 3 09:30:51 CDT CPT-51849 Postop F/U Visit 15:14:53 CDT CPT-20276 Postop F/U Visit 13:50:14 CDT CPT-39004 Postop F/U Visit 13:34:52 CDT CPT-OV Office Visit 16:55:03 CDT CPT-95385 Morton of cervix w bx ECC 13:32:50 CDT 10/19 CPT-J1885 Toradol 60 mg (Ketorolac) 15:31:59 CDT 2011 CPT-J1885 Toradol 60 mg (Ketorolac) 15:23:54 CDT 2011 CPT-84584 Visit 11:34:37 COLOR WORKER CPT-03655 Visit 10:52:39 COLOR WORKER CPT-09258 Visit 10:12:02 COLOR WORKER CPT-26280 Visit 11:22:43 COLOR WORKER CPT-88994 Visit 11:24:12 COLOR WORKER CPT-05675 Visit 10:47:05 COLOR WORKER CPT-OV Office Visit 10:26:16 COLOR WORKER CPT-OV Office Visit 15:34:31 COLOR WORKER CPT-99094 Visit 10:42:08 COLOR WORKER CPT-09741 Visit 10:52:45 COLOR WORKER CPT-000 Give Appropriate Flu Vaccine 16:56:41 CDT 2 CPT-11790 Administration single or combination vac cine inc oral 10:33:21 CDT CPT-75456 Influenza split virus > age 3 10:33:21 CDT CPT-85333 Visit 13:23:09 CDT CPT-64884 Visit 18:24:52 CDT CPT-02396 Sono OB comp > 14 weeks 12:07:49 CDT 04/07
--- OUTSIDE RECORDS SUMMARY | 2020-01-18 16:44 | XMS REPORT | Clinical Summary ---
Author Author Avery, Jeri Rashid Organization [facility] Address Unknown Phone Unavailable Allergies, Adverse [...] MD Dysuria Hypoglycemia 251.2 Active Joann Faux RMA Hypoglycemia, unspecified Anxiety 300.00 Active Joann Faux RMA Anxiety state, unspecified Swelling of limb [...] Julian MD Open wound of buttock, complicated Cellulitis and abscess of trunk 682.2 Active 2013 Abdirahman Rios MD Cellulitis and abscess of trunk FH Diabetes V18.0 Active Good Julian MD Family history of diabetes mellitus Pelvic pain 789.09 Active Good Julian MD Abdominal pain, other specified site; multiple sites Vaccination against influenza V04.81 Active 04/03 Shauna Beaulieu LPN Need for prophylactic vaccin ation and inoculation against influenza Contact dermatitis due to poison marilee 692.6 Active Shola MCGILL Contact dermatitis and other eczema due to plants [except food] Back pain, chronic 724.5 Active Shola MCGILL Backache, unspecified Back strain 847.9 Active Shola MCGILL Sprain of unspecified site of back Sinusitis, acute 461.9 Active Abdirahman Carr Acute sinusitis, unspecified Hidradenitis 705.83 Active Hira Moser APRN Hidradenitis , INCIDENTAL PROBLEM ICD-V22.2 Inacti ve Abdirahman [...] BACK PAIN, LUMBAR, CHRONIC ICD-724.2 Inactive John Bernsteindaniel Dysmenorrhea, severe ICD-625.3 Inactive Kalpseh Dong MD Abnormal vaginal bleeding ICD-626.9 Inactive [...] Patient Instruction PERCOCET 5-325 MG TAB 1 every 6 hours as needed OXYCODONE-ACETAMINOPHEN 44830042708 No Longer Active Shola MCGILL Active LC-5 LIDOCAINE 5 % CREA apply 1 time daily to affected area 2013 LIDOCAINE (ANORECTAL) 26330772778 No Longer Active Hira muniz GARNISHER Active HYDROCODONE-ACETAMINOPHEN 5-325 MG TABS 2 tablets by m outh every 8 hours as needed for pain HYDROCODONE-ACETAMINOPHEN 14070872367 Acti ve Shola MCGILL Active HYDROCODONE-ACETAMINOPHEN 10-325 MG TABS 1 by mouth ev chaka 8 hours as needed for pain HYDROCODONE-ACETAMINOPHEN 37571234241 No Longer Active Jillina Frazell GARNISHER Active LORATADINE 10 MG TABS 1 tablet by mouth daily L ORATADINE 60000935939 No Longer Active Jillina Frazell GARNISHER Active DIFLUCAN 150 MG TAB 1 qODay x 2 doses FLUCONAZO LE 99355408154 No Longer Active Jillina Frazell GARNISHER Active CYCLOBENZAPRINE HCL 10 MG TABS 1/2 - 1 tab PO tid PRN back p ain, muscle spasm CYCLOBENZAPRINE HCL 15746553788 No Longer Active Karen herson Frazell GARNISHER Active AUGMENTIN 875-125 MG TAB 1 tab by mouth twice daily with food 20 22/05/07 AMOXICILLIN-POT CLAVULANATE 04050199800 No Longer Active Loida Rios MD Active MOBIC 15 MG TABS 1 tab daily MELOXICAM 511701218 14 No Longer Active Abdirahman Rios MD Active PERCOCET 7.5-325 MG TABS 1 PO tid PRN pain OXYCODONE-ACETAMINOPHEN 28909822868 No Longer Active Abdirahman Rios MD Active LIDODERM 5 % PTCH One patch to painful area ND N. On for 12 hrs, off for 12 hrs. LIDOCAINE 63240020305 No Longer Active Abdirahman Rios MD Active PERCOCET 7.5-325 MG TABS 1 PO q 8 hrs PRN pain OXYCODONE-ACETAMINOPHEN 31208987415 No Longer Active Shola MCGILL Active HYDROCODONE-ACETAMINOPHEN 7.5-325 MG TABS 1 by mouth e very 6 hours as needed for pain HYDROCODONE-ACETAMINOPHEN 32791104459 No Longer Active Good Julian MD Active CLINDAMYCIN HCL 300 MG CAPS 1 po QID x 7 days CLINDAMYCIN HCL 24229383552 No Longer Active Abdirahman Rios MD Activ e BACTRIM DS 800-160 MG TABS 1 po BID x 7 days 5 SULFAMETHOXAZOLE-TRIMETHOPRIM 56442200002 No Longer Active Abdirahman Rios MD Active ENDOCET 10-325 MG TABS 1 q 6 hr prn OXYCODONE-ACETAMINOPHEN 72646998008 No Longer Active Abdirahman Rios MD Active IBUPROFEN 800 MG TABS 1 tid prn IBUPROFEN 022557 35217 No Longer Active Abdirahman Rios MD Active BACTRIM DS 800-160 MG TABS by mouth twice a day 11/05 SULFAMETHOXAZOLE-TRIMETHOPRIM 81581537344 No Longer Active Good Julian MD Active HYDROCODONE-ACETAMINOPHEN 7.5-325 MG TABS 1 four times a day as needed for pain HYDROCODONE-ACETAMINOPHEN 66192289392 No Longer Activ e Good Julian MD Active KEFLEX 500 MG CAP 1 tab po tid CEPHALEXIN 813196 42835 No Longer Active Hira Moser APRN Active IBUPROFEN 800 MG TAB 1 pill three times daily as needed for pain IBUPROFEN 41026951176 No Longer Active Kalpesh Dong MD Active PROMETHAZINE-CODEINE 6.25-10 MG/5ML SYRP 1 tsp every 6 hrs prn c ough PROMETHAZINE-CODEINE 73992686583 No Longer Active Kalpesh Carr Active ALPRAZOLAM 0.5 MG TABS 1 PO bid PRN ALPRAZOLAM 962513 92961 Active Edilberto Marino DO Active HYDROCODONE-ACETAMINOPHEN 5-325 MG TABS 1 tab by mouth every 6 hours as needed HYDROCODONE-ACETAMINOPHEN 38058613907 No Longer Activ e Shola MCGILL Active CEPHALEXIN 500 MG CAPS 1 PO bid x 7 days CEPHAL EXIN 04646926437 No Longer Active Shola MCGILL Active BACTRIM DS 800-160 MG TAB 1 tab by mouth twice daily 2 TRIMETHOPRIM-SULFAMETHOXAZOLE 01951189770 No Longer Active Kalpesh Dong MD Active HYDROCODONE-ACETAMINOPHEN 5-325 MG TABS 1 PO tid PRN pain 5 HYDROCODONE-ACETAMINOPHEN 00326321418 No Longer Active Abhinav Galvan MD Active IMPLANON 68 MG IMPL IMPLANTED IN LEFT ARM ETONO GESTREL 99593025182 No Longer Active 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 GARNISHER Active AMOXICILLIN 500 MG TABS 2 tabs PO bid x 10 d AM OXICILLIN 42591168025 No Longer Active Kalpesh Dong MD Active LEVAQUIN 500 MG TABS 1 PO q day x 7 days LEVOFL OXACIN 73938804557 No Longer Active Shola MCGILL Active PROAIR HFA 108 (90 BASE) MCG/ACT AERS 2 puff q 4-6 hrs PRN ALBUTEROL SULFATE 55187189860 Active Edilberto Marino DO Active FIORICET 50-325-40 MG TABS 2 PO q 8 hrs PRN FOSTER [id number] Active Shola MCGILL Active AMITRIPTYLINE HCL 25 MG TAB 1 tab by mouth daily 60 minutes before bedtime AMITRIPTYLINE HCL 96915027630 No Longer Active Shola MCGILL Active LORTAB 5 5-500 MG TABS 1/2 to 1 tablet by mouth go ry 6 hours as needed for pain HYDROCODONE-ACETAMINOPHEN 74566137225 No Longer Active Shola MCGILL Active CEPHALEXIN 500 MG TABS Take one by mouth four times daily, morning, noon, early evening and bedtime. CEPHALEXIN 86908192673 No Long er Active Hira Joyjanee GARNISHER Active TYLENOL/CODEINE #3 300-30 MG TAB 1-2 po q6hr PRN Pain ACETAMINOPHEN-CODEINE 34784586427 No Longer Active Edilberto Marino DO Active PRISTIQ 50 MG [id number] 1 po qd DESVENLAFAXI NE SUCCINATE 41552262810 No Longer Active Edilberto Marino DO Active PENICILLIN V POTASSIUM 500 MG TAB 1 four times a day 2 PENICILLIN V POTASSIUM 52249137905 No Longer Active Edilberto Marino DO Active DOXYCYCLINE HYCLATE 100 MG CAPS Take one (1) tablet by mouth twice a day DOXYCYCLINE HYCLATE 71762375216 No Longer Active Ronnie Galvan MD Active HYDROCODONE-ACETAMINOPHEN 5-325 MG TABS 1 po q 6hr PRN Pain 2011 HYDROCODONE-ACETAMINOPHEN 61384743543 No Longer Active Patri joan Perez RN Active BACTRIM DS 800-160 MG TAB 1 tab by mouth twice daily 2 TRIMETHOPRIM-SULFAMETHOXAZOLE 99046071305 No Longer Active Kalpesh Dong MD Active LORTAB 5 5-500 MG TABS 1/2 to 1 tablet by mouth go ry 4 hours as needed for pain HYDROCODONE-ACETAMINOPHEN 96202087307 No Longer Active Kalpesh Dong MD Active GENERESS FE 0.8-25 MG-MCG CHEW Take one by mouth daily NORETHIN-ETH ESTRADIOL-FE 19428110571 No Longer Active Kalpesh Dong MD Active HYDROCODONE-ACETAMINOPHEN 7.5-500 MG TABS 1-2 every 4 hours as needed HYDROCODONE-ACETAMINOPHEN 64862944014 No Longer Activ e Kalpesh Dong MD Active FERROUS SULFATE 325 (65 FE) MG TABS 1 tablet by mouth twice yung y FERROUS SULFATE 76172651014 No Longer Active aKlpesh Dong MD Active IBUPROFEN 600 MG TAB 1 po q6-8hr PRN IBUPROFEN 89480174609 No Longer Active Kalpesh Dong MD Active SPIRONOLACTONE 25 MG TAB 1 tablet by mouth daily 01/22 SPIRONOLACTONE 74281976837 No Longer Active Kalpesh Dong MD Acti ve HYDROCODONE-ACETAMINOPHEN 7.5-325 MG TABS 1 po QID PRN Pain 2011 HYDROCODONE-ACETAMINOPHEN 27168140218 No Longer Active Kalpesh Dong MD Active CLINDAMYCIN HCL 300 MG CAPS 1 po q6hr x 7 days CLINDAMYCIN HCL 68118971942 No Longer Active Edilberto Marino DO Active PREDNISONE 20 MG TAB 2 tabs daily for 4 days, 1 t ab daily for 4 days, 1/2 tab daily for 4 days PREDNISONE 25116338535 No Longer Active Edilberto Marino DO Active PERCOCET 5-325 MG TABS 1 tablet by mouth every 6 hours as ne eded for pain OXYCODONE-ACETAMINOPHEN 91255998496 No Longer Active Abdirahman Rios MD Active VITAMINS TABS Take one by mouth daily MV & MIN W/FE-FA TABS 86678937214 No Longer Active Abdirahman Rios MD Active LUIS 3-0.02 MG TABS 1 tablet by mouth daily as directed DROSPIRENONE-ETHINYL ESTRADIOL 52964275451 No Longer Active Abdirahman Rios MD Active LORATADINE 10 MG TABS 1 tablet by mouth daily L ORATADINE 37038941175 No Longer Active Kalpesh Dong MD Active HYDROCODONE-ACETAMINOPHEN 5-325 MG TABS 1 po q 6hr PRN Pain 2010 HYDROCODONE-ACETAMINOPHEN 45035570609 No Longer Active Edilberto Marino DO Active BACTRIM DS 800-160 MG TAB 1 tab by mouth twice daily 2 TRIMETHOPRIM-SULFAMETHOXAZOLE 36174030011 No Longer Active Abdirahman Rios MD Active 28-0.8 MG TABS Take one by mouth daily 09/20 VIT-FE FUMARATE-FA 09686652344 No Longer Active Abdirahman Rios MD Active CIPRO 500 MG TAB 1 tablet by mouth twice daily CIPROFLOXACIN HCL 27799135668 No Longer Active Abdirahman Rios MD Active BENADRYL 25 MG CAP 1 po q8hr PRN Congestion DIPHENHYDRAMINE HCL 46078217560 No Longer Active Abdirahman Rios MD Active ZOLOFT 50 MG TAB 1 po qd SERTRALINE HCL 510599 17825 No Longer Active Abdirahman Rios MD Active AMOXICILLIN 875 MG TABS 1 tab by mouth twice daily 201 08/09/13 AMOXICILLIN 43089424315 No Longer Active Abdirahman Rios MD Activ e AMOXICILLIN 875 MG TABS 1 tab by mouth twice daily 201 07/19/27 AMOXICILLIN 03104277175 No Longer Active Abdirahman Rios MD Activ e BACTRIM DS 800-160 MG TAB 2 tab by mouth twice daily 2 TRIMETHOPRIM-SULFAMETHOXAZOLE 96746590876 No Longer Active Abdirahman Rios MD Active KEFLEX 500 MG CAP 1 po tid x 10 days CEPHALEXIN 48517052010 No Longer Active Abdirahman Rios MD Active AMOXICILLIN 875 MG TABS 1 tab by mouth twice daily 201 07/18/07 AMOXICILLIN 57826640662 No Longer Active Abdirahman Rios MD Activ e BACTRIM DS 800-160 MG TAB 2 tab by mouth twice daily 2 BACTRIM DS 800-160 MG TAB TRIMETHOPRIM-SULFAMETHOXAZOLE Inactive ZOLOFT 50 MG TAB 1 po qd ZOLOFT 50 MG TAB 3129 41 SERTRALINE HCL Inactive BENADRYL 25 MG CAP 1 po q8hr PRN Congestion BENADRYL 25 MG CAP 5401034 DIPHENHYDRAMINE HCL Inactive 28-0.8 MG TABS Take one by mouth daily 09/20 28-0.8 MG TABS VIT-FE FUMARATE-FA Inactive HYDROCODONE-ACETAMINOPHEN 5-325 MG TABS 1 po q 6hr PRN Pain 2010 HYDROCODONE-ACETAMINOPHEN 5-325 MG TABS 097933 HYDROCODONE-ACETAMINOPHEN Inactive LORATADINE 10 MG TABS 1 tablet by mouth daily LORATADINE 10 MG TABS 237900 LORATADINE Inactive LUIS 3-0.02 MG TABS 1 tablet by mouth daily as directed LUIS 3-0.02 MG TABS DROSPIRENONE-ETHINYL ESTRADIOL Inactive VITAMINS TABS Take one by mouth daily VITAMINS TABS MV & MIN W/FE-FA TABS Inactive PERCOCET 5-325 MG TABS 1 tablet by mouth every 6 hours as ne eded for pain PERCOCET 5-325 MG TABS 0858002 OXYCODONE-ACETAMIN OPHEN Inactive PREDNISONE 20 MG TAB 2 tabs daily for 4 days, 1 t ab daily for 4 days, 1/2 tab daily for 4 days PREDNISONE 20 MG TAB 176184 PREDNISON E Inactive CLINDAMYCIN HCL 300 MG CAPS 1 po q6hr x 7 days CLINDAMYCIN HCL 300 MG CAPS 911762 CLINDAMYCIN HCL Inactive HYDROCODONE-ACETAMINOPHEN 7.5-325 MG TABS 1 po QID PRN Pain 2011 HYDROCODONE-ACETAMINOPHEN 7.5-325 MG TABS 096552 HYDROCODONE-ACETAMINOPHEN Inactive SPIRONOLACTONE 25 MG TAB 1 tablet by mouth daily 01/22 SPIRONOLACTONE 25 MG TAB 777737 SPIRONOLACTONE Inactive IBUPROFEN 600 MG TAB 1 po q6-8hr PRN IBUPROFEN 600 MG TAB 209437 IBUPROFEN Inactive FERROUS SULFATE 325 (65 FE) MG TABS 1 tablet by mouth twice yung y FERROUS SULFATE 325 (65 FE) MG TABS 918904 FERROUS SULF ATE Inactive HYDROCODONE-ACETAMINOPHEN 7.5-500 MG [...] PRN Pain 2011 HYDROCODONE-ACETAMINOPHEN 5-325 MG TABS 581534 HYDROCODONE-ACETAMINOPHEN Inactive DOXYCYCLINE HYCLATE 100 MG CAPS Take one (1) tablet by mouth twice a day DOXYCYCLINE HYCLATE 100 MG CAPS 066795 DOXYCYCLINE HYCLATE Inactive PENICILLIN V POTASSIUM 500 MG TAB 1 four times a day 2 PENICILLIN V POTASSIUM 500 MG TAB 907090 PENICILLIN V POTASSIUM [place] ctive PRISTIQ 50 MG [id number] 1 po qd PRISTIQ 50 MG [id number] DESVENLAFAXINE SUCCINATE Inactive TYLENOL/CODEINE #3 300-30 MG TAB 1-2 po q6hr PRN Pain TYLENOL/CODEINE #3 300-30 MG TAB 186429 ACETAMINOPHEN-CODEINE Inact krishna CEPHALEXIN 500 MG TABS Take one by mouth four times daily, morning, noon, early evening and bedtime. CEPHALEXIN 500 MG TABS 558786 CEPHALEXIN Inactive LORTAB 5 5-500 MG TABS 1/2 to 1 tablet by mouth go ry 6 hours as needed for pain LORTAB 5 5-500 MG TABS HYDROCODONE-A CETAMINOPHEN Inactive AMITRIPTYLINE HCL 25 MG TAB 1 tab by mouth daily 60 minutes before bedtime AMITRIPTYLINE HCL 25 MG TAB 514297 AMITRIPTYLINE HCL Inactive AMOXICILLIN 500 MG TABS 2 tabs PO bid x 10 d 7 AMOXICILLIN 500 MG TABS 378607 AMOXICILLIN Inactive IMPLANON 68 MG IMPL IMPLANTED IN LEFT ARM IMPLANON 68 MG IMPL ETONOGESTREL Inactive HYDROCODONE-ACETAMINOPHEN 5-325 MG TABS 1 PO tid PRN pain 5 HYDROCODONE-ACETAMINOPHEN 5-325 MG TABS 994838 HYDROCODONE-ACETAMIN OPHEN Inactive BACTRIM DS 800-160 MG TAB 1 tab by mouth twice daily 2 BACTRIM DS 800-160 MG TAB TRIMETHOPRIM-SULFAMETHOXAZOLE Inac tive CEPHALEXIN 500 MG CAPS 1 PO bid x 7 days CEPHALEXIN 500 MG CAPS 605670 CEPHALEXIN Inactive HYDROCODONE-ACETAMINOPHEN 5-325 MG TABS 1 tab by mouth every 6 hours as needed HYDROCODONE-ACETAMINOPHEN 5-325 MG TABS 923398 HYDROCODONE-ACETAMINOPHEN Inactive PROMETHAZINE-CODEINE 6.25-10 MG/5ML SYRP 1 tsp every 6 hrs prn c ough PROMETHAZINE-CODEINE 6.25-10 MG/5ML SYRP 387230 PROMETH AZINE-CODEINE Inactive IBUPROFEN 800 MG TAB 1 pill three times daily as needed for pain IBUPROFEN 800 MG TAB 661364 IBUPROFEN Inactive KEFLEX 500 MG CAP 1 tab po tid KEFLEX 500 MG CAP 424273 CEPHALEXIN Inactive HYDROCODONE-ACETAMINOPHEN 7.5-325 MG TABS 1 four times a day as needed for pain HYDROCODONE-ACETAMINOPHEN 7.5-325 MG TABS 910600 HYDROCODONE-ACETAMINOPHEN Inactive BACTRIM DS 800-160 MG TABS by mouth twice a day 11/05 BACTRIM DS 800-160 MG TABS SULFAMETHOXAZOLE-TRIMETHOPRIM Inactive IBUPROFEN 800 MG TABS 1 tid prn IBUPROFEN 800 MG TABS 646804 IBUPROFEN Inactive ENDOCET 10-325 MG TABS 1 q 6 hr prn ENDOC ET 10-325 MG TABS 2395373 OXYCODONE-ACETAMINOPHEN Inactive HYDROCODONE-ACETAMINOPHEN 7.5-325 MG TABS 1 by mouth e very 6 hours as needed for pain HYDROCODONE-ACETAMINOPHEN 7.5-325 MG TABS 794720 HYDROCODONE-ACETAMINOPHEN Inactive PERCOCET 7.5-325 MG TABS 1 PO q 8 hrs PRN pain PERCOCET 7.5-325 MG TABS 6369789 OXYCODONE-ACETAMINOPHEN Inactive LIDODERM 5 % PTCH One patch to painful area ND N. On for 12 hrs, off for 12 hrs. LIDODERM 5 % PTCH 4374292 LIDOCAINE Inactiv e PERCOCET 7.5-325 MG TABS 1 PO tid PRN pain PERCOCET 7.5- 325 MG TABS 5399639 OXYCODONE-ACETAMINOPHEN Inactive MOBIC 15 MG TABS 1 tab daily MOBIC 15 MG TABS 15 2695 MELOXICAM Inactive CYCLOBENZAPRINE HCL 10 MG TABS 1/2 - 1 tab PO tid PRN back p ain, muscle spasm CYCLOBENZAPRINE HCL 10 MG TABS 686611 CYCLOBENZA JOSEPH HCL Inactive LORATADINE 10 MG TABS 1 tablet by mouth daily LORATADINE 10 MG TABS 855215 LORATADINE Inactive HYDROCODONE-ACETAMINOPHEN 10-325 MG TABS 1 by mouth ev chaka 8 hours as needed for pain HYDROCODONE-ACETAMINOPHEN 10-325 MG TABS 999824 HYDROCODONE-ACETAMINOPHEN Inactive LC-5 LIDOCAINE 5 % CREA apply 1 time daily to affected area 2013 LC-5 LIDOCAINE 5 % CREA LIDOCAINE (ANORECTAL) In active PERCOCET 5-325 MG TAB 1 every 6 hours as needed PERCOCET 5-325 MG TAB 1193059 OXYCODONE-ACETAMINOPHEN Inactive AMOXICILLIN 875 MG TABS 1 tab by mouth twice daily 201 07/18/07 AMOXICILLIN 875 MG TABS 843529 AMOXICILLIN Inactive KEFLEX 500 MG CAP 1 po tid x 10 days KEFLEX 500 MG CAP 127824 CEPHALEXIN Inactive AMOXICILLIN 875 MG TABS 1 tab by mouth twice daily 201 07/19/27 AMOXICILLIN 875 MG TABS 690153 AMOXICILLIN Inactive AMOXICILLIN 875 MG TABS 1 tab by mouth twice daily 201 08/09/13 AMOXICILLIN 875 MG TABS 652041 AMOXICILLIN Inactive CIPRO 500 MG TAB 1 tablet by mouth twice daily CIPRO 500 MG TAB 563599 CIPROFLOXACIN HCL Inactive BACTRIM DS 800-160 MG TAB 1 tab by mouth twice daily 2 BACTRIM DS 800-160 MG TAB TRIMETHOPRIM-SULFAMETHOXAZOLE Inac tive LEVAQUIN 500 MG TABS 1 PO q day x 7 days LEVAQUIN 500 MG TABS 413388 LEVOFLOXACIN Inactive CLINDAMYCIN HCL 300 MG CAPS 1 po QID x 7 days CLINDAMYCIN HCL 300 MG CAPS 557209 CLINDAMYCIN HCL Inactive AUGMENTIN 875-125 MG TAB 1 tab by mouth twice daily with food 20 22/05/07 AUGMENTIN 875-125 MG TAB 179384 AMOXICILLIN-POT CLAVULA [place] Inactive DIFLUCAN 150 MG TAB 1 qODay x 2 doses DIFLUCAN 150 MG TAB 876470 FLUCONAZOLE Inactive Advance Directives Directive Description Start Date PERMISSION TO SHARE Immunizations Vaccine Administration Date Value Standard Alf cription Seasonal influenza vaccine, injectable, containing preservative, for > 3 years old (Afluria, FluLaval, Fluzone, Fluvirin, Fluarix, Agriflu(>= 18 yo)) Fluzone (>3 yrs.) [[id number]] Influenza, seasonal, inject able Seasonal influenza vaccine, injectable, preservative free, for > 3 years old (Afluria, FluLaval, Fluzone, Fluvirin, Fluarix, Agriflu(>= 18 yo)) Fluzone preservative free (>3 yrs.) [[id number]] Influenza, seasonal, injectable, preservative free Seasonal influenza vaccine, injectable, containing preservative, for > 3 years old (Afluria, FluLaval, Fluzone, Fluvirin, Fluarix, Agriflu(>= 18 yo)) Fluzone (>3 yrs.) [[id number]] Influenza, seasonal, inject able Seasonal influenza vaccine, injectable, containing preservative, for > 3 years old (Afluria, FluLaval, Fluzone, Fluvirin, Fluarix, Agriflu(>= 18 yo)) Fluzone (>3 yrs.) [[id number]] Influenza, seasonal, inject able dT (Diphtheria and Tetanus) booster given Histor ical Td(adult) unspecified formulation Vital Signs Date Name Value Unit Range Description blood pressure, diastolic - 8462-4 79 mm[Hg] [...] pressure, diastolic - 8462-4 80 mm[Hg] BP irbeiro blood pressure, systolic - 8480-6 119 mm[Hg] [...] - 3141-9 238.13 [lb_av] Weigh t Measured Diagnostic Results Date Name Value Unit Range Description Lab Report: CBC W/DIFF, Comp. Metabolic Panel, Thyroid Stimulating Hormo ... - Chemistry sodium, serum 140 mmol/L 556-704 7393/02/24 potassium, serum 4.3 mmol/L 3.5-5.2 chloride, serum [...] Panel, Thyroid Stimulating Hormo ... - Hematology erythrocyte (RBC) count 5.20 10^6/MM^3 10*6/mm3 4.04-5.4 8 lymphocytes as percent of blood leukocytes 31.0 % 20.5-51.1 monocytes as percent of blood leukocytes 8.1 % 1.7-9.3 neutrophils as percent of blood leukocytes 57.3 % 42.2-75.2 leukocyte count, blood 7.4 10^3/MM^3 10*3/mm3 4.6-10.2 hemoglobin, blood 14.9 g/dL 12.0-16.0 hematocrit, blood 44.1 % 36.0-46.0 mean corpuscular volume, RBC 85 fL 80-97 mean corpuscular hemoglobin, RBC 28.7 pg 27. 0-31.2 mean corpuscular hemoglobin concentration, RBC 33.9 G/DL % 31.8-35.4 red blood cell distribution width 13.9 % 11 .6-14.8 platelet count 307 10^3/MM^3 10*3/mm3 142-424 Lab Report: CBC W/DIFF, Comp. Metabolic Panel, Thyroid Stimulating Hormo ... - Urinalysis glucose, urine, semiquantitative Negative Neg ative ketones, urine, by test strip Negative Negati ve bilirubin, urine Negative Negative urobilinogen, urine, semiquantitative (dipstick) 0.2 Normal leukocyte esterase, urine, by dipstick Negative Negative nitrite, urine, semiquantitative Negative Neg ative urine color Yellow Colorless;Lightyellow;St raw;Yellow appearance, urine Clear Clear specific gravity, urine 1.025 1.000-1.030 pH, urine, semiquantitative 5.5 5.0-8.5 Lab Report: Glucose Tolerance 2hr - Chem istry blood glucose, finger stick 91 65-110 Lab Report: HGBA1C - Chemistry hemoglobin A1C, blood, as % of total hemoglobin 5.1 % 4.3-6.0 Lab Report: T3, TOTAL, INSULIN - Reinforced Concrete Inspector ry triiodothyronine (T3), serum 78 ng/dL 76-181 Office Visit: low blood sugars - Chemis try cholesterol, target level 200 mg/dL triglyceride, target level 200 mg/dL HDL cholesterol, serum, target level 35 mg/dL LDL target level 100 mg/dL Encounters Code Encounter Date Provider Facility CPT-45747 Level 3 Est. Patient 14:03:08 WAITSTAFF CAPTAIN Abdirahman Rios MD [facility] CPT-55090 Level 3 Est. Patient 18:12:34 CDT Shola Wright [facility] CPT-68463 Level 3 Est. Patient 19:34:46 CDT Shola Wright [facility] CPT-83569 Level 3 Est. Patient 14:19:37 CDT Abdirahman Rios MD [facility] CPT-90508 Level 3 Est. Patient 14:11:58 CDT Kalpesh goins MD [facility] CPT-20765 Level 3 Est. Patient 16:50:00 CDT Michelle MERCADO [facility] CPT-04749 Level 3 Est. Patient 17:11:32 WAITSTAFF CAPTAIN Brandie bates MD PhD [facility] CPT-03987 Level 3 Est. Patient 16:31:47 WAITSTAFF CAPTAIN Shola Wright [facility] CPT-53677 Level 3 Est. Patient 17:51:10 WAITSTAFF CAPTAIN Abhinav Galvan MD [facility] CPT-54228 Level 4 Est. Patient 12:54:56 WAITSTAFF CAPTAIN Kalpesh goins MD [facility] CPT-73738 Level 4 Est. Patient 12:53:56 WAITSTAFF CAPTAIN Kalpesh goins MD [facility] CPT-55689 Level 3 Est. Patient 17:56:58 CDT Shola Wright [facility] CPT-28328 Level 3 Est. Patient 14:26:20 CDT Janak butcher [facility] CPT-82932 Level 3 Est. Patient 09:38:41 CDT Shola Thao Adriana [facility] CPT-51758 Level 3 Est. Patient 14:45:26 CDT Edilbreto tiwari [facility] CPT-53981 Level 3 Est. Patient 10:51:33 [facility] Level 3 Est. Patient 11:57:55 WAITSTAFF CAPTAIN Shola Thao Adriana [facility] CPT-56662 Level 3 Est. Patient 09:53:33 WAITSTAFF CAPTAIN Edilberto tiwari [facility] CPT-24012 Level 3 Est. Patient 14:42:54 WAITSTAFF CAPTAIN Abhinav Galvan MD [facility] CPT-75309 Level 3 Est. Patient 15:10:02 CDT Janak butcher [facility] CPT-88160 Level 3 Est. Patient 15:20:20 CDT Theo dennis MD [facility] CPT-09013 Level 2 Est. Patient 14:08:57 CDT Kalpesh goins MD [facility] CPT-70079 Level 3 Est. Patient 13:56:19 CDT Abdirahman Rios MD [facility] CPT-26299 Level 3 Est. Patient 13:59:37 CDT Abdirahman Rios MD [facility] CPT-42554 Level 2 Est. Patient 14:44:59 CDT Kalpesh goins MD [facility] CPT-73573 Level 3 Est. Patient 06:06:23 CDT Edilberto tiwari [facility] CPT-87240 Level 3 Est. Patient 15:23:54 CDT Abdirahman Rios MD [facility] CPT-46447 Level 3 Est. Patient 15:43:49 CDT Abdirahman Rios MD [facility] CPT-40370 Level 3 Est. Patient 12:46:47 WAITSTAFF CAPTAIN Abdirahman Rios MD [facility] CPT-52016 Level 3 Est. Patient 08:13:35 WAITSTAFF CAPTAIN Abdirahman Rios MD [facility] CPT-91542 Level 2 Est. Patient 09:36:42 WAITSTAFF CAPTAIN Abdirahman Rios MD [facility] CPT-93074 Level 3 Est. Patient 10:56:43 CDT Abdirahman Rios MD [facility] CPT-95359 Level 3 Est. Patient 18:24:52 CDT Abdirahman Rios MD [facility] CPT-97089 Level 3 Est. Patient 13:27:22 CDT Abdirahman Rios MD [facility] Procedures Code Procedure Name Date Entry Date Standard Desc ription CPT-37471 Postop F/U Visit 08:19:08 WAITSTAFF CAPTAIN CPT-01561 Immunization Single Admin 16:41:53 CDT 2013 CPT-11806 Fluzone Quadrivalent Intramuscular Suspe nsion 0.5 ML 16:41:53 CDT CPT-OV Office Visit 16:39:18 CDT CPT-OV Office Visit 16:16:36 CDT CPT-OV Office Visit 15:34:48 CDT CPT-39096 Postop F/U Visit 14:50:12 CDT CPT-85950 Postop F/U Visit 14:41:10 CDT CPT-53631 Venipuncture Draw Fee 11:38:04 WAITSTAFF CAPTAIN CPT-10129 Postop F/U Visit 19:02:59 WAITSTAFF CAPTAIN CPT-52164 Postop F/U Visit 12:04:54 WAITSTAFF CAPTAIN CPT-99276 Administration single or combination vac cine inc oral 15:56:43 CDT CPT-74117 Influenza split virus > age 3 15:56:43 CDT CPT-16308 Hand comp min 3V 14:25:19 CDT CPT-52408 Postop F/U Visit 21:40:51 CDT CPT-47863 Postop F/U Visit 10:58:43 CDT CPT-51912 Administration single or combination vac cine inc oral 12:33:54 WAITSTAFF CAPTAIN CPT-22484 Influenza Preservative Free split virus >age 3 12:33:54 WAITSTAFF CAPTAIN CPT-02643 Administration single or combination vac cine inc oral 09:30:51 CDT CPT-30381 Influenza split virus > age 3 09:30:51 CDT CPT-86987 Postop F/U Visit 15:14:53 CDT CPT-62062 Postop F/U Visit 13:50:14 CDT CPT-13911 Postop F/U Visit 13:34:52 CDT CPT-OV Office Visit 16:55:03 CDT CPT-85640 [place] of cervix w bx ECC 13:32:50 CDT 10/19 CPT-J1885 Toradol 60 mg (Ketorolac) 15:31:59 CDT 2011 CPT-J1885 Toradol 60 mg (Ketorolac) 15:23:54 CDT 2011 CPT-58262 Visit 11:34:37 WAITSTAFF CAPTAIN CPT-79554 Visit 10:52:39 WAITSTAFF CAPTAIN CPT-64626 Visit 10:12:02 WAITSTAFF CAPTAIN CPT-95751 Visit 11:22:43 WAITSTAFF CAPTAIN CPT-43090 Visit 11:24:12 WAITSTAFF CAPTAIN CPT-49925 Visit 10:47:05 WAITSTAFF CAPTAIN CPT-OV Office Visit 10:26:16 WAITSTAFF CAPTAIN CPT-OV Office Visit 15:34:31 WAITSTAFF CAPTAIN CPT-58001 Visit 10:42:08 WAITSTAFF CAPTAIN CPT-35652 Visit 10:52:45 WAITSTAFF CAPTAIN CPT-000 Give Appropriate Flu Vaccine 16:56:41 CDT 2 CPT-45284 Administration single or combination vac cine inc oral 10:33:21 CDT CPT-03239 Influenza split virus > age 3 10:33:21 CDT CPT-15598 Visit 13:23:09 CDT CPT-44060 Visit 18:24:52 CDT CPT-90720 Sono OB comp > 14 weeks 12:07:49 CDT 04/07
--- OUTSIDE RECORDS SUMMARY | 2020-01-18 16:44 | XMS REPORT | Clinical Summary ---
[...] chronic 724.5 Active Shola MCGILL Backache, unspecified , INCIDENTAL PROBLEM ICD-V22.2 Inacti ve Abdirahman [...] MD AFTERCARE FOLLOW SURGERY SYSTEM NEC ICD-V58.76 20/10/29 Inactive Good Julian MD Dysuria ICD-788.1 [...] Generic Name NDC Status Provider Patient Instruction MOBIC 15 MG TABS 1 tab daily MELOXICAM [id number] Ac jason Julain MD Active PERCOCET 7.5-325 MG TABS 1 PO q 8 hrs PRN pain OXYCODONE-ACETAMINOPHEN [id number] No Longer Active Shola MCGILL Active HYDROCODONE-ACETAMINOPHEN 10-325 MG TABS 1 by mouth ev chaka 8 hours as needed for pain HYDROCODONE-ACETAMINOPHEN 67212133690 Active Shola MCGILL Active HYDROCODONE-ACETAMINOPHEN 7.5-325 MG TABS 1 by mouth e very 6 hours as needed for pain HYDROCODONE-ACETAMINOPHEN 81310932681 No Longer Active Good Julian MD Active LC-5 LIDOCAINE 5 % CREA apply 1 time daily to affected area LIDOCAINE (ANORECTAL) 21564008812 Active Shola MCGILL Active CLINDAMYCIN HCL 300 MG CAPS 1 po QID x 7 days CLINDAMYCIN HCL 55101616819 No Longer Active Abdirahman Rios MD Activ e BACTRIM DS 800-160 MG TABS 1 po BID x 7 days 5 SULFAMETHOXAZOLE-TRIMETHOPRIM 45071157129 No Longer Active Abdirahman Rios MD Active ENDOCET 10-325 MG TABS 1 q 6 hr prn OXYCODONE-ACETAMINOPHEN 71176743288 No Longer Active Abdirahman Rios MD Active IBUPROFEN 800 MG TABS 1 tid prn IBUPROFEN 993774 83542 No Longer Active Abdirahman Rios MD Active BACTRIM DS 800-160 MG TABS by mouth twice a day 11/05 SULFAMETHOXAZOLE-TRIMETHOPRIM 53681678594 No Longer Active Good Julian MD Active HYDROCODONE-ACETAMINOPHEN 7.5-325 MG TABS 1 four times a day as needed for pain HYDROCODONE-ACETAMINOPHEN 84430246333 No Longer Activ e Good Julian MD Active KEFLEX 500 MG CAP 1 tab po tid CEPHALEXIN 456642 98105 No Longer Active Hira Moser APRN Active IBUPROFEN 800 MG TAB 1 pill three times daily as needed for pain IBUPROFEN 39203782470 No Longer Active Kalpesh Dong MD Active PROMETHAZINE-CODEINE 6.25-10 MG/5ML SYRP 1 tsp every 6 hrs prn c ough PROMETHAZINE-CODEINE 15034119176 No Longer Active Kalpesh Carr Active ALPRAZOLAM 0.5 MG TABS 1 PO bid PRN ALPRAZOLAM 417557 42896 Active Shola MCGILL Active HYDROCODONE-ACETAMINOPHEN 5-325 MG TABS 1 tab by mouth every 6 hours as needed HYDROCODONE-ACETAMINOPHEN 90876306328 No Longer Activ e Shola MCGILL Active CEPHALEXIN 500 MG CAPS 1 PO bid x 7 days CEPHAL EXIN 03016824129 No Longer Active Shola MCGILL Active BACTRIM DS 800-160 MG TAB 1 tab by mouth twice daily 2 TRIMETHOPRIM-SULFAMETHOXAZOLE 18371643283 No Longer Active Kalpesh Dong MD Active HYDROCODONE-ACETAMINOPHEN 5-325 MG TABS 1 PO tid PRN pain 5 HYDROCODONE-ACETAMINOPHEN 14562727771 No Longer Active Abhinav Galvan MD Active IMPLANON 68 MG IMPL IMPLANTED IN LEFT ARM ETONO GESTREL 80175119926 No Longer Active Jielias Perazal 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 AMOXICILLIN 500 MG TABS 2 tabs PO bid x 10 d AM OXICILLIN 50885637462 No Longer Active Kalpesh Dong MD Active LEVAQUIN 500 MG TABS 1 PO q day x 7 days LEVOFL OXACIN 14329767246 No Longer Active Shola MCGILL Active PROAIR HFA 108 (90 BASE) MCG/ACT AERS 2 puff q 4-6 hrs PRN ALBUTEROL SULFATE 46805777486 Active Shola MCGILL Acti ve FIORICET 50-325-40 MG TABS 2 PO q 8 hrs PRN FOSTER [id number] Active Shola MCGILL Active AMITRIPTYLINE HCL 25 MG TAB 1 tab by mouth daily 60 minutes before bedtime AMITRIPTYLINE HCL 92519049821 No Longer Active Shola MCGILL Active LORTAB 5 5-500 MG TABS 1/2 to 1 tablet by mouth go ry 6 hours as needed for pain HYDROCODONE-ACETAMINOPHEN 21958710988 No Longer Active Shola MCGILL Active CEPHALEXIN 500 MG TABS Take one by mouth four times daily, morning, noon, early evening and bedtime. CEPHALEXIN 56993030049 No Long er Active Hira Perazaabel 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 TYLENOL/CODEINE #3 300-30 MG TAB 1-2 po q6hr PRN Pain ACETAMINOPHEN-CODEINE 45311670642 No Longer Active Edilberto Marino DO Active PRISTIQ 50 MG [id number] 1 po qd DESVENLAFAXI NE SUCCINATE 43805419374 No Longer Active Edilberto Marino DO Active PENICILLIN V POTASSIUM 500 MG TAB 1 four times a day 2 PENICILLIN V POTASSIUM 52322881804 No Longer Active Edilberto Marino DO Active DOXYCYCLINE HYCLATE 100 MG CAPS Take one (1) tablet by mouth twice a day DOXYCYCLINE HYCLATE 95331305204 No Longer Active Ronnie Galvan MD Active HYDROCODONE-ACETAMINOPHEN 5-325 MG TABS 1 po q 6hr PRN Pain 2011 HYDROCODONE-ACETAMINOPHEN 84139329389 No Longer Active Patri joan Perez RN Active BACTRIM DS 800-160 MG TAB 1 tab by mouth twice daily 2 TRIMETHOPRIM-SULFAMETHOXAZOLE 08646536648 No Longer Active Kalpesh Dong MD Active LORTAB 5 5-500 MG TABS 1/2 to 1 tablet by mouth go ry 4 hours as needed for pain HYDROCODONE-ACETAMINOPHEN 80242188226 No Longer Active Kalpesh Dong MD Active GENERESS FE 0.8-25 MG-MCG CHEW Take one by mouth daily NORETHIN-ETH ESTRADIOL-FE 06929044086 No Longer Active Kalpesh Dong MD Active HYDROCODONE-ACETAMINOPHEN 7.5-500 MG TABS 1-2 every 4 hours as needed HYDROCODONE-ACETAMINOPHEN 14154062282 No Longer Activ e Kalpesh Dong MD Active FERROUS SULFATE 325 (65 FE) MG TABS 1 tablet by mouth twice yung y FERROUS SULFATE 27025263267 No Longer Active Kalpesh Dong MD Active IBUPROFEN 600 MG TAB 1 po q6-8hr PRN IBUPROFEN 28058816405 No Longer Active Kalpesh Dong MD Active SPIRONOLACTONE 25 MG TAB 1 tablet by mouth daily 01/22 SPIRONOLACTONE 18753130768 No Longer Active Kalpesh Dong MD Acti ve HYDROCODONE-ACETAMINOPHEN 7.5-325 MG TABS 1 po QID PRN Pain 2011 HYDROCODONE-ACETAMINOPHEN 69035784369 No Longer Active Kalpesh Dong MD Active CLINDAMYCIN HCL 300 MG CAPS 1 po q6hr x 7 days CLINDAMYCIN HCL 10155384528 No Longer Active Edilberto Marino DO Active PREDNISONE 20 MG TAB 2 tabs daily for 4 days, 1 t ab daily for 4 days, 1/2 tab daily for 4 days PREDNISONE 71665346481 No Longer Active Edilberto Marino DO Active PERCOCET 5-325 MG TABS 1 tablet by mouth every 6 hours as ne eded for pain OXYCODONE-ACETAMINOPHEN 49817518755 No Longer Active Abdirahman Rios MD Active VITAMINS TABS Take one by mouth daily MV & MIN W/FE-FA TABS 16523355013 No Longer Active Abdirahman Rios MD Active LUIS 3-0.02 MG TABS 1 tablet by mouth daily as directed DROSPIRENONE-ETHINYL ESTRADIOL 22998990930 No Longer Active Abdirahman Rios MD Active LORATADINE 10 MG TABS 1 tablet by mouth daily L ORATADINE 56141740332 No Longer Active Kalpesh Dong MD Active HYDROCODONE-ACETAMINOPHEN 5-325 MG TABS 1 po q 6hr PRN Pain 2010 HYDROCODONE-ACETAMINOPHEN 73762589944 No Longer Active Edilberto Marino DO Active BACTRIM DS 800-160 MG TAB 1 tab by mouth twice daily 2 TRIMETHOPRIM-SULFAMETHOXAZOLE 88752041845 No Longer Active Abdirahman Rios MD Active 28-0.8 MG TABS Take one by mouth daily 09/20 VIT-FE FUMARATE-FA 56695991721 No Longer Active Abdirahman Rios MD Active CIPRO 500 MG TAB 1 tablet by mouth twice daily CIPROFLOXACIN HCL 92783597116 No Longer Active Abdirahman Rios MD Active BENADRYL 25 MG CAP 1 po q8hr PRN Congestion DIPHENHYDRAMINE HCL 21018496520 No Longer Active Abdirahman Rios MD Active ZOLOFT 50 MG TAB 1 po qd SERTRALINE HCL 596726 53355 No Longer Active Abdirahman Rios MD Active AMOXICILLIN 875 MG TABS 1 tab by mouth twice daily 201 08/09/13 AMOXICILLIN 64744805011 No Longer Active Abdirahman Rios MD Activ e AMOXICILLIN 875 MG TABS 1 tab by mouth twice daily 201 07/19/27 AMOXICILLIN 40803908024 No Longer Active Abdirahman Rios MD Activ e BACTRIM DS 800-160 MG TAB 2 tab by mouth twice daily 2 TRIMETHOPRIM-SULFAMETHOXAZOLE 87010826503 No Longer Active Abdirahman Rios MD Active KEFLEX 500 MG CAP 1 po tid x 10 days CEPHALEXIN 87910948689 No Longer Active Abdirahman Rios MD Active AMOXICILLIN 875 MG TABS 1 tab by mouth twice daily 201 07/18/07 AMOXICILLIN 88964537231 No Longer Active Abdirahman Rios MD Activ e BACTRIM DS 800-160 MG TAB 2 tab by mouth twice daily 2 BACTRIM DS 800-160 MG TAB TRIMETHOPRIM-SULFAMETHOXAZOLE Inactive ZOLOFT 50 MG TAB 1 po qd ZOLOFT 50 MG TAB 3129 41 SERTRALINE HCL Inactive BENADRYL 25 MG CAP 1 po q8hr PRN Congestion BENADRYL 25 MG CAP 5039641 DIPHENHYDRAMINE HCL Inactive 28-0.8 MG TABS Take one by mouth daily 09/20 28-0.8 MG TABS VIT-FE FUMARATE-FA Inactive HYDROCODONE-ACETAMINOPHEN 5-325 MG TABS 1 po q 6hr PRN Pain 2010 HYDROCODONE-ACETAMINOPHEN 5-325 MG TABS 725053 HYDROCODONE-ACETAMINOPHEN Inactive LORATADINE 10 MG TABS 1 tablet by mouth daily LORATADINE 10 MG TABS 171156 LORATADINE Inactive LUIS 3-0.02 MG TABS 1 tablet by mouth daily as directed LUIS 3-0.02 MG TABS DROSPIRENONE-ETHINYL ESTRADIOL Inactive VITAMINS TABS Take one by mouth daily VITAMINS TABS MV & MIN W/FE-FA TABS Inactive PERCOCET 5-325 MG TABS 1 tablet by mouth every 6 hours as ne eded for pain PERCOCET 5-325 MG TABS 0005066 OXYCODONE-ACETAMIN OPHEN Inactive PREDNISONE 20 MG TAB 2 tabs daily for 4 days, 1 t ab daily for 4 days, 1/2 tab daily for 4 days PREDNISONE 20 MG TAB 615786 PREDNISON E Inactive CLINDAMYCIN HCL 300 MG CAPS 1 po q6hr x 7 days CLINDAMYCIN HCL 300 MG CAPS 271654 CLINDAMYCIN HCL Inactive HYDROCODONE-ACETAMINOPHEN 7.5-325 MG TABS 1 po QID PRN Pain 2011 HYDROCODONE-ACETAMINOPHEN 7.5-325 MG TABS 384333 HYDROCODONE-ACETAMINOPHEN Inactive SPIRONOLACTONE 25 MG TAB 1 tablet by mouth daily 01/22 SPIRONOLACTONE 25 MG TAB 827664 SPIRONOLACTONE Inactive IBUPROFEN 600 MG TAB 1 po q6-8hr PRN IBUPROFEN 600 MG TAB 599631 IBUPROFEN Inactive FERROUS SULFATE 325 (65 FE) MG TABS 1 tablet by mouth twice yung y FERROUS SULFATE 325 (65 FE) MG TABS 714912 FERROUS SULF ATE Inactive HYDROCODONE-ACETAMINOPHEN 7.5-500 MG [...] PRN Pain 2011 HYDROCODONE-ACETAMINOPHEN 5-325 MG TABS 136750 HYDROCODONE-ACETAMINOPHEN Inactive DOXYCYCLINE HYCLATE 100 MG CAPS Take one (1) tablet by mouth twice a day DOXYCYCLINE HYCLATE 100 MG CAPS 825424 DOXYCYCLINE HYCLATE Inactive PENICILLIN V POTASSIUM 500 MG TAB 1 four times a day 2 PENICILLIN V POTASSIUM 500 MG TAB 825631 PENICILLIN V POTASSIUM Siri ctive PRISTIQ 50 MG [id number] 1 po qd PRISTIQ 50 MG [id number] DESVENLAFAXINE SUCCINATE Inactive TYLENOL/CODEINE #3 300-30 MG TAB 1-2 po q6hr PRN Pain TYLENOL/CODEINE #3 300-30 MG TAB 717241 ACETAMINOPHEN-CODEINE Inact krishna CEPHALEXIN 500 MG TABS Take one by mouth four times daily, morning, noon, early evening and bedtime. CEPHALEXIN 500 MG TABS 996645 CEPHALEXIN Inactive LORTAB 5 5-500 MG TABS 1/2 to 1 tablet by mouth go ry 6 hours as needed for pain LORTAB 5 5-500 MG TABS HYDROCODONE-A CETAMINOPHEN Inactive AMITRIPTYLINE HCL 25 MG TAB 1 tab by mouth daily 60 minutes before bedtime AMITRIPTYLINE HCL 25 MG TAB 636839 AMITRIPTYLINE HCL Inactive AMOXICILLIN 500 MG TABS 2 tabs PO bid x 10 d 7 AMOXICILLIN 500 MG TABS 307474 AMOXICILLIN Inactive IMPLANON 68 MG IMPL IMPLANTED IN LEFT ARM IMPLANON 68 MG IMPL ETONOGESTREL Inactive HYDROCODONE-ACETAMINOPHEN 5-325 MG TABS 1 PO tid PRN pain 5 HYDROCODONE-ACETAMINOPHEN 5-325 MG TABS 336706 HYDROCODONE-ACETAMIN OPHEN Inactive BACTRIM DS 800-160 MG TAB 1 tab by mouth twice daily 2 BACTRIM DS 800-160 MG TAB TRIMETHOPRIM-SULFAMETHOXAZOLE Inac tive CEPHALEXIN 500 MG CAPS 1 PO bid x 7 days CEPHALEXIN 500 MG CAPS 371160 CEPHALEXIN Inactive HYDROCODONE-ACETAMINOPHEN 5-325 MG TABS 1 tab by mouth every 6 hours as needed HYDROCODONE-ACETAMINOPHEN 5-325 MG TABS 245579 HYDROCODONE-ACETAMINOPHEN Inactive PROMETHAZINE-CODEINE 6.25-10 MG/5ML SYRP 1 tsp every 6 hrs prn c ough PROMETHAZINE-CODEINE 6.25-10 MG/5ML SYRP 392383 PROMETH AZINE-CODEINE Inactive IBUPROFEN 800 MG TAB 1 pill three times daily as needed for pain IBUPROFEN 800 MG TAB 502449 IBUPROFEN Inactive KEFLEX 500 MG CAP 1 tab po tid KEFLEX 500 MG CAP 972960 CEPHALEXIN Inactive HYDROCODONE-ACETAMINOPHEN 7.5-325 MG TABS 1 four times a day as needed for pain HYDROCODONE-ACETAMINOPHEN 7.5-325 MG TABS 955352 HYDROCODONE-ACETAMINOPHEN Inactive BACTRIM DS 800-160 MG TABS by mouth twice a day 11/05 BACTRIM DS 800-160 MG TABS SULFAMETHOXAZOLE-TRIMETHOPRIM Inactive IBUPROFEN 800 MG TABS 1 tid prn IBUPROFEN 800 MG TABS 056174 IBUPROFEN Inactive ENDOCET 10-325 MG TABS 1 q 6 hr prn ENDOC ET 10-325 MG TABS 9851363 OXYCODONE-ACETAMINOPHEN Inactive HYDROCODONE-ACETAMINOPHEN 7.5-325 MG TABS 1 by mouth e very 6 hours as needed for pain HYDROCODONE-ACETAMINOPHEN 7.5-325 MG TABS 841003 HYDROCODONE-ACETAMINOPHEN Inactive PERCOCET 7.5-325 MG TABS 1 PO q 8 hrs PRN pain PERCOCET 7.5-325 MG TABS 4106155 OXYCODONE-ACETAMINOPHEN Inactive AMOXICILLIN 875 MG TABS 1 tab by mouth twice daily 201 07/18/07 AMOXICILLIN 875 MG TABS 165258 AMOXICILLIN Inactive KEFLEX 500 MG CAP 1 po tid x 10 days KEFLEX 500 MG CAP 981308 CEPHALEXIN Inactive AMOXICILLIN 875 MG TABS 1 tab by mouth twice daily 201 07/19/27 AMOXICILLIN 875 MG TABS 786743 AMOXICILLIN Inactive AMOXICILLIN 875 MG TABS 1 tab by mouth twice daily 201 08/09/13 AMOXICILLIN 875 MG TABS 243196 AMOXICILLIN Inactive CIPRO 500 MG TAB 1 tablet by mouth twice daily CIPRO 500 MG TAB 380478 CIPROFLOXACIN HCL Inactive BACTRIM DS 800-160 MG TAB 1 tab by mouth twice daily 2 BACTRIM DS 800-160 MG TAB TRIMETHOPRIM-SULFAMETHOXAZOLE Inac tive LEVAQUIN 500 MG TABS 1 PO q day x 7 days LEVAQUIN 500 MG TABS 700569 LEVOFLOXACIN Inactive CLINDAMYCIN HCL 300 MG CAPS 1 po QID x 7 days CLINDAMYCIN HCL 300 MG CAPS 784573 CLINDAMYCIN HCL Inactive Advance Directives Directive Description Start Date PERMISSION TO SHARE Immunizations Vaccine Administration Date Value Standard Alf cription Seasonal influenza vaccine, injectable, containing preservative, for > 3 years old (Afluria, FluLaval, Fluzone, Fluvirin, Fluarix, Agriflu(>= 18 yo)) Fluzone (>3 yrs.) [[id number]] Influenza, seasonal, inject able Seasonal influenza vaccine, injectable, preservative free, for > 3 years old (Afluria, FluLaval, Fluzone, Fluvirin, Fluarix, Agriflu(>= 18 yo)) Fluzone preservative free (>3 yrs.) [[id number]] Influenza, seasonal, injectable, preservative free Seasonal influenza vaccine, injectable, containing preservative, for > 3 years old (Afluria, FluLaval, Fluzone, Fluvirin, Fluarix, Agriflu(>= 18 yo)) Fluzone (>3 yrs.) [[id number]] Influenza, seasonal, inject able Seasonal influenza vaccine, injectable, containing preservative, for > 3 years old (Afluria, FluLaval, Fluzone, Fluvirin, Fluarix, Agriflu(>= 18 yo)) Fluzone (>3 yrs.) [[id number]] Influenza, seasonal, inject able dT (Diphtheria and Tetanus) booster Historical Td(adult) unspecified formulation Vital Signs Date Name Value Unit Range Description blood pressure, diastolic 79 mm[Hg] BP ribeiro blood pressure, systolic 124 mm[Hg] BP sys pulse rate E&M 103 /min Heart rate temperature E&M 98.6 [degF] Body temp erature weight E&M 234 [lb_av] Weight Measure d blood pressure, diastolic 83 mm[Hg] BP ribeiro blood pressure, systolic 144 mm[Hg] BP sys pulse rate E&M 76 /min Heart rate temperature E&M 97.2 [degF] Body temp erature weight E&M 239 [lb_av] Weight Measure d blood pressure, diastolic 82 mm[Hg] BP ribeiro blood pressure, systolic 123 mm[Hg] BP sys pulse rate E&M 72 /min Heart rate temperature E&M 98.1 [degF] Body temp erature weight E&M 241 [lb_av] Weight Measure d blood pressure, diastolic 80 mm[Hg] BP ribeiro blood pressure, systolic 119 mm[Hg] BP sys pulse rate E&M 92 /min Heart rate temperature E&M 97.1 [degF] Body temp erature weight E&M 235.7 [lb_av] Weight Measure d blood pressure, diastolic 93 mm[Hg] BP ribeiro [...] weight E&M 236 [lb_av] Weight Measure d Diagnostic Results Date Name Value Unit Range Description Chart Maintenance: Outside labs entered on flowsheet - Chemistry sodium, serum 139 mmol/L potassium, serum 3.9 mmol/L chloride, serum 103 mmol/L carbon dioxide, venous blood 26.1 mmol/L urea nitrogen, blood 5 mg/dL blood glucose 89 mg/dL creatinine, serum 0.73 mg/dL calcium, serum 9.1 mg/dL Chart Maintenance: Outside labs entered on flowsheet - Hematology leukocyte count, blood 8.3 10*3/mm3 erythrocyte (RBC) count 5.2 10*6/mm3 hemoglobin, blood 14.2 g/dL hematocrit, blood 42.6 % mean corpuscular volume, RBC 82.4 fL mean corpuscular hemoglobin, RBC 27.5 pg red blood cell distribution width 12.9 % platelet count 316 10*3/mm3 Lab Report: CBC W/DIFF, Comp. Metabolic Panel, Thyroid Stimulating Hormo ... - Chemistry sodium, serum 140 mmol/L 370-491 4882/02/24 potassium, serum 4.3 mmol/L 3.5-5.2 chloride, serum [...] 4.3-6.0 Lab Report: T3, TOTAL, INSULIN - Managed Services Sales Consultant ry triiodothyronine, serum 78 ng/dL 76-181 Lab [...] mg/dL Encounters Code Encounter Date Provider Facility CPT-74840 Level 3 Est. Patient 19:34:46 CDT Shola MCGILL [facility] CPT-88726 Level 3 Est. Patient 14:19:37 CDT Abdirahman Rios MD [facility] CPT-62316 Level 3 Est. Patient 14:11:58 CDT Kalpesh goins MD [facility] CPT-46174 Level 3 Est. Patient 16:50:00 CDT Michelle MERCADO [facility] CPT-38920 Level 3 Est. Patient 17:11:32 [employer]LEGE [employer]OTB[employer] COACH Brandie bates MD PhD [facility] CPT-84143 Level 3 Est. 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 Patient 17:51:10 COLLEGE FOOTBALL COACH Abhinav Galvan MD [facility] CPT-79662 Level 4 Est. Patient 12:54:56 COLLEGE FOOTBALL COACH Kalpesh goins MD [facility]-09288 Level 4 Est. Patient 12:53:56 COLLEGE FOOTBALL COACH Kalpesh goins MD [facility] CPT-95835 Level 3 Est. Patient 17:56:58 CDT Shola [facility] CPT-15502 Level 3 Est. Patient 14:26:20 CDT Janak Dominguez [facility][note 3] CPT-54262 Level 3 Est. Patient 09:38:41 CDT Shola [facility] CPT-09301 Level 3 Est. Patient 14:45:26 CDT Edilberto tiwari [facility] CPT-98058 Level 3 Est. Patient 10:51:33 CDT Hira muniz [facility] CPT-67450 Level 3 Est. Patient 11:57:55 COLLEGE FOOTBALL COACH Shola [facility] CPT-88083 Level 3 Est. Patient 09:53:33 COLLEGE FOOTBALL COACH Edilberto tiwari [facility] CPT-33236 Level 3 Est. Patient 14:42:54 COLLEGE FOOTBALL COACH Abhinav Galvan MD [facility]-35706 Level 3 Est. Patient 15:10:02 CDT Janak butcher [facility] CPT-58684 Level 3 Est. Patient 15:20:20 CDT Theo dennis MD [facility] CPT-04987 Level 2 Est. Patient 14:08:57 CDT Kalpesh goins MD [facility] CPT-49159 Level 3 Est. Patient 13:56:19 CDT Abdirahman Rios MD [facility] CPT-76521 Level 3 Est. Patient 13:59:37 CDT Abdirahman Rios MD [facility] CPT-28192 Level 2 Est. Patient 14:44:59 CDT Kalpesh goins MD [facility] CPT-90251 Level 3 Est. Patient 06:06:23 CDT Edilberto tiwari DO [facility] CPT-73728 Level 3 Est. Patient 15:23:54 CDT Abdirahman Rios MD [facility] CPT-08633 Level 3 Est. Patient 15:43:49 CDT Abdirahman Rios MD [facility] CPT-00931 Level 3 Est. Patient 12:46:47 COLLEGE FOOTBALL COACH Abdirahman Rios MD [facility] CPT-08617 Level 3 Est. Patient 08:13:35 COLLEGE FOOTBALL COACH Abdirahman Rios MD [facility] CPT-18198 Level 2 Est. Patient 09:36:42 COLLEGE FOOTBALL COACH Abdirahman Rios MD [facility] CPT-95885 Level 3 Est. Patient 10:56:43 CDT Abdirahman Rios MD [facility] CPT-15164 Level 3 Est. Patient 18:24:52 CDT Abdirahman Rios MD [facility] CPT-29212 Level 3 Est. Patient 13:27:22 CDT Abdirahman Rios MD [facility] Procedures Code Procedure Name Date Entry Date Standard Desc ription CPT-74341 Immunization Single Admin 16:41:53 CDT 2013 CPT-30836 Fluzone Quadrivalent Intramuscular Suspe nsion 0.5 ML 16:41:53 CDT CPT-OV Office Visit 16:39:18 CDT CPT-OV Office Visit 16:16:36 CDT CPT-OV Office Visit 15:34:48 CDT CPT-94952 Postop F/U Visit 14:50:12 CDT CPT-64136 Postop F/U Visit 14:41:10 CDT CPT-01444 Venipuncture Draw Fee 11:38:04 [employer]LE[employer]OT[employer] CPT-50846 Postop F/U Visit 19:02:59 [employer]LEGE FOOTBALL COACH CPT-61590 Postop F/U Visit 12:04:54 [employer]LEGE FOOTBALL COACH CPT-21676 Administration single or combination vac cine inc oral 15:56:43 CDT CPT-73365 Influenza split virus > age 3 15:56:43 CDT CPT-42563 Hand comp min 3V 14:25:19 CDT CPT-57594 Postop F/U Visit 21:40:51 CDT CPT-56844 Postop F/U Visit 10:58:43 CDT CPT-43105 Administration single or combination vac cine inc oral 12:33:54 [employer]LEGE FOOTBALL COACH CPT-17859 Influenza Preservative Free split virus >age 3 12:33:54 [employer]LEGE FOOTBALL COACH CPT-38519 Administration single or combination vac cine inc oral 09:30:51 CDT CPT-41477 Influenza split virus > age 3 09:30:51 CDT CPT-64809 Postop F/U Visit 15:14:53 CDT CPT-05657 Postop F/U Visit 13:50:14 CDT CPT-54217 Postop F/U Visit 13:34:52 CDT CPT-OV Office Visit 16:55:03 CDT CPT-21438 Blairs of cervix w bx ECC 13:32:50 CDT 10/19 CPT-J1885 Toradol 60 mg (Ketorolac) 15:31:59 CDT 2011 CPT-J1885 Toradol 60 mg (Ketorolac) 15:23:54 CDT 2011 CPT-40436 Visit 11:34:37 [employer]LEGE [employer]OT[employer] CPT-33495 Visit 10:52:39 COLLEGE FOOTBALL COACH CPT-35983 Visit 10:12:02 COLLEGE FOOT[employer]ALL COACH CPT-12348 Visit 11:22:43 [employer]LEGE FOOTBALL COACH CPT-64058 Visit 11:24:12 COLLEGE FOOTBALL COACH CPT-59068 Visit 10:47:05 COLLEGE FOOTBALL COACH CPT-OV Office Visit 10:26:16 COLLEGE FOOTBALL COACH CPT-OV Office Visit 15:34:31 [employer]LEGE FOOT[employer]ALL CO[employer] CPT-11804 Visit 10:42:08 COLLEGE FOOTBALL COACH CPT-47657 Visit 10:52:45 [employer]LEGE FOOTBALL COACH CPT-000 Give Appropriate Flu Vaccine 16:56:41 CDT 2 CPT-40125 Administration single or combination vac cine inc oral 10:33:21 CDT CPT-91354 Influenza split virus > age 3 10:33:21 CDT CPT-31750 Visit 13:23:09 CDT CPT-92259 Visit 18:24:52 CDT CPT-12048 Sono OB comp > 14 weeks 12:07:49 CDT 04/07
--- OUTSIDE RECORDS SUMMARY | 2020-01-18 16:45 | XMS REPORT | Clinical Summary ---
Author Author Admin, Jeri Rashid Organization [facility] Address Unknown Phone Allergies, Adverse Reactions, Alerts [...] ORL CAV&DIGESTV SYS NEC ICD-V58.75 Inactive Good Juilan MD ACUTE BRONCHITIS ICD-466.0 Inactive Good Julian [...] by mouth twice a day 11/05 SULFAMETHOXAZOLE-TRIMETHOPRIM [id number] No Longer Active Good Julian MD Active IBUPROFEN 800 MG TABS 1 tid prn IBUPROFEN 84584098739 Active Good Julian MD Active ENDOCET 10-325 MG TABS 1 q 6 hr prn OXYCODONE-A CETAMINOPHEN 26757587800 Active Shola MCGILL Active HYDROCODONE-ACETAMINOPHEN 7.5-325 MG TABS 1 four times a day as needed for pain HYDROCODONE-ACETAMINOPHEN 18875864597 No Longer Activ crystal Julian MD Active KEFLEX 500 MG CAP 1 tab po tid CEPHALEXIN 201434 53649 No Longer Active Hira Moser APRN Active IBUPROFEN 800 MG TAB 1 pill three times daily as needed for pain IBUPROFEN 88960935242 No Longer Active Kalpesh Dong MD Active PROMETHAZINE-CODEINE 6.25-10 MG/5ML SYRP 1 tsp every 6 hrs prn c ough PROMETHAZINE-CODEINE 30171739549 No Longer Active Kalpesh Carr Active ALPRAZOLAM 0.5 MG TABS 1 PO bid PRN ALPRAZOLAM 921768 02205 Active Shola MCGILL Active HYDROCODONE-ACETAMINOPHEN 5-325 MG TABS 1 tab by mouth every 6 hours as needed HYDROCODONE-ACETAMINOPHEN 70617459551 No Longer Activ e Shola MCGILL Active CEPHALEXIN 500 MG CAPS 1 PO bid x 7 days CEPHAL EXIN 15195245949 No Longer Active Shola MCGILL Active BACTRIM DS 800-160 MG TAB 1 tab by mouth twice daily 2 TRIMETHOPRIM-SULFAMETHOXAZOLE 46848807760 No Longer Active Kalpesh Dong MD Active HYDROCODONE-ACETAMINOPHEN 5-325 MG TABS 1 PO tid PRN pain 5 HYDROCODONE-ACETAMINOPHEN 93193112492 No Longer Active Abhinav Galvan MD Active IMPLANON 68 MG IMPL IMPLANTED IN LEFT ARM ETONO GESTREL 05878659040 No Longer Active 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 [employer]ARKING 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 OFFICER 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 AMOXICILLIN 500 MG TABS 2 tabs PO bid x 10 d AM OXICILLIN 75668289364 No Longer Active Kalpesh Dong MD Active LEVAQUIN 500 MG TABS 1 PO q day x 7 days LEVOFL OXACIN 48602315197 No Longer Active Shola MCGILL Active PROAIR HFA 108 (90 BASE) MCG/ACT AERS 2 puff q 4-6 hrs PRN ALBUTEROL SULFATE 85021469599 Active Shola MCGILL Acti ve FIORICET 50-325-40 MG TABS 2 PO q 8 hrs PRN FOSTER [id number] 01939302518 Active Abdirahman Rios MD Active AMITRIPTYLINE HCL 25 MG TAB 1 tab by mouth daily 60 minutes before bedtime AMITRIPTYLINE HCL 73485788700 No Longer Active Shola MCGILL Active LORTAB 5 5-500 MG TABS 1/2 to 1 tablet by mouth go ry 6 hours as needed for pain HYDROCODONE-ACETAMINOPHEN 55325279550 No Longer Active Shola MCGILL Active CEPHALEXIN 500 MG TABS Take one by mouth four times daily, morning, noon, early evening and bedtime. 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 Active TYLENOL/CODEINE #3 300-30 MG TAB 1-2 po q6hr PRN Pain ACETAMINOPHEN-CODEINE 63174265423 No Longer Active Edilberto Marino DO Active PRISTIQ 50 MG [id number] 1 po qd DESVENLAFAXI NE SUCCINATE 57762495859 No Longer Active Edilberto Marino DO Active PENICILLIN V POTASSIUM 500 MG TAB 1 four times a day 2 PENICILLIN V POTASSIUM 59695038913 No Longer Active Edilberto Marino DO Active DOXYCYCLINE HYCLATE 100 MG CAPS Take one (1) tablet by mouth twice a day DOXYCYCLINE HYCLATE 25576850787 No Longer Active Ronnie Galvan MD Active HYDROCODONE-ACETAMINOPHEN 5-325 MG TABS 1 po q 6hr PRN Pain 2011 HYDROCODONE-ACETAMINOPHEN 95975686865 No Longer Active Patri joan Perez RN Active BACTRIM DS 800-160 MG TAB 1 tab by mouth twice daily 2 TRIMETHOPRIM-SULFAMETHOXAZOLE 00921266477 No Longer Active Kalpesh Dong MD Active LORTAB 5 5-500 MG TABS 1/2 to 1 tablet by mouth go ry 4 hours as needed for pain HYDROCODONE-ACETAMINOPHEN 80358837053 No Longer Active Kalpesh Dong MD Active GENERESS FE 0.8-25 MG-MCG CHEW Take one by mouth daily NORETHIN-ETH ESTRADIOL-FE 53157168207 No Longer Active Kalpesh Dong MD Active HYDROCODONE-ACETAMINOPHEN 7.5-500 MG TABS 1-2 every 4 hours as needed HYDROCODONE-ACETAMINOPHEN 18650185272 No Longer Activ e Kalpesh Dong MD Active FERROUS SULFATE 325 (65 FE) MG TABS 1 tablet by mouth twice yung y FERROUS SULFATE 86276877555 No Longer Active Kalpesh Dong MD Active IBUPROFEN 600 MG TAB 1 po q6-8hr PRN IBUPROFEN 81994931521 No Longer Active Kalpesh Dong MD Active SPIRONOLACTONE 25 MG TAB 1 tablet by mouth daily 01/22 SPIRONOLACTONE 03576462492 No Longer Active Kalpesh Dong MD Acti ve HYDROCODONE-ACETAMINOPHEN 7.5-325 MG TABS 1 po QID PRN Pain 2011 HYDROCODONE-ACETAMINOPHEN 09826445099 No Longer Active Kalpesh Dong MD Active CLINDAMYCIN HCL 300 MG CAPS 1 po q6hr x 7 days CLINDAMYCIN HCL 12657503640 No Longer Active Ediblerto Marino DO Active PREDNISONE 20 MG TAB 2 tabs daily for 4 days, 1 t ab daily for 4 days, 1/2 tab daily for 4 days PREDNISONE 56924010242 No Longer Active Edilberto Marino DO Active PERCOCET 5-325 MG TABS 1 tablet by mouth every 6 hours as ne eded for pain OXYCODONE-ACETAMINOPHEN 82380343162 No Longer Active Abdirahman Rios MD Active VITAMINS TABS Take one by mouth daily MV & MIN W/FE-FA TABS 91749198205 No Longer Active Abdirahman Rios MD Active LUIS 3-0.02 MG TABS 1 tablet by mouth daily as directed DROSPIRENONE-ETHINYL ESTRADIOL 82879382289 No Longer Active Abdirahman Rios MD Active LORATADINE 10 MG TABS 1 tablet by mouth daily L ORATADINE 33318986484 No Longer Active Kalpesh Dong MD Active HYDROCODONE-ACETAMINOPHEN 5-325 MG TABS 1 po q 6hr PRN Pain 2010 HYDROCODONE-ACETAMINOPHEN 49603777026 No Longer Active Edilbreto Marino DO Active BACTRIM DS 800-160 MG TAB 1 tab by mouth twice daily 2 TRIMETHOPRIM-SULFAMETHOXAZOLE 55158359657 No Longer Active Abdirahman Rios MD Active 28-0.8 MG TABS Take one by mouth daily 09/20 VIT-FE FUMARATE-FA 97528672527 No Longer Active Abdirahman Rios MD Active CIPRO 500 MG TAB 1 tablet by mouth twice daily CIPROFLOXACIN HCL 20069017975 No Longer Active Abdirahman Rios MD Active BENADRYL 25 MG CAP 1 po q8hr PRN Congestion DIPHENHYDRAMINE HCL 90122869991 No Longer Active Abdirahman Rios MD Active ZOLOFT 50 MG TAB 1 po qd SERTRALINE HCL 594935 26285 No Longer Active Abdirahman Rios MD Active AMOXICILLIN 875 MG TABS 1 tab by mouth twice daily 201 08/09/13 AMOXICILLIN 20528483681 No Longer Active Abdirahman Rios MD Activ e AMOXICILLIN 875 MG TABS 1 tab by mouth twice daily 201 07/19/27 AMOXICILLIN 04380012178 No Longer Active Abdirahman Rios MD Activ e BACTRIM DS 800-160 MG TAB 2 tab by mouth twice daily 2 TRIMETHOPRIM-SULFAMETHOXAZOLE 30010342371 No Longer Active Abdirahman Rios MD Active KEFLEX 500 MG CAP 1 po tid x 10 days CEPHALEXIN 66431054688 No Longer Active Abdirahman Rios MD Active AMOXICILLIN 875 MG TABS 1 tab by mouth twice daily 201 07/18/07 AMOXICILLIN 13768909883 No Longer Active Abdirahman Rios MD Activ e BACTRIM DS 800-160 MG TAB 2 tab by mouth twice daily 2 BACTRIM DS 800-160 MG TAB TRIMETHOPRIM-SULFAMETHOXAZOLE Inactive ZOLOFT 50 MG TAB 1 po qd ZOLOFT 50 MG TAB 3129 41 SERTRALINE HCL Inactive BENADRYL 25 MG CAP 1 po q8hr PRN Congestion BENADRYL 25 MG CAP 9329341 DIPHENHYDRAMINE HCL Inactive 28-0.8 MG TABS Take one by mouth daily 09/20 28-0.8 MG TABS VIT-FE FUMARATE-FA Inactive HYDROCODONE-ACETAMINOPHEN 5-325 MG TABS 1 po q 6hr PRN Pain 2010 HYDROCODONE-ACETAMINOPHEN 5-325 MG TABS 553754 HYDROCODONE-ACETAMINOPHEN Inactive LORATADINE 10 MG TABS 1 tablet by mouth daily LORATADINE 10 MG TABS 079752 LORATADINE Inactive LUIS 3-0.02 MG TABS 1 tablet by mouth daily as directed LUIS 3-0.02 MG TABS DROSPIRENONE-ETHINYL ESTRADIOL Inactive VITAMINS TABS Take one by mouth daily VITAMINS TABS MV & MIN W/FE-FA TABS Inactive PERCOCET 5-325 MG TABS 1 tablet by mouth every 6 hours as ne eded for pain PERCOCET 5-325 MG TABS 0180953 OXYCODONE-ACETAMIN OPHEN Inactive PREDNISONE 20 MG TAB 2 tabs daily for 4 days, 1 t ab daily for 4 days, 1/2 tab daily for 4 days PREDNISONE 20 MG TAB 951254 PREDNISON E Inactive CLINDAMYCIN HCL 300 MG CAPS 1 po q6hr x 7 days CLINDAMYCIN HCL 300 MG CAPS 297524 CLINDAMYCIN HCL Inactive HYDROCODONE-ACETAMINOPHEN 7.5-325 MG TABS 1 po QID PRN Pain 2011 HYDROCODONE-ACETAMINOPHEN 7.5-325 MG TABS 136485 HYDROCODONE-ACETAMINOPHEN Inactive SPIRONOLACTONE 25 MG TAB 1 tablet by mouth daily 01/22 SPIRONOLACTONE 25 MG TAB 855616 SPIRONOLACTONE Inactive IBUPROFEN 600 MG TAB 1 po q6-8hr PRN IBUPROFEN 600 MG TAB 461666 IBUPROFEN Inactive FERROUS SULFATE 325 (65 FE) MG TABS 1 tablet by mouth twice yung y FERROUS SULFATE 325 (65 FE) MG TABS 405260 FERROUS SULF ATE Inactive HYDROCODONE-ACETAMINOPHEN 7.5-500 MG TABS 1-2 every 4 hours as needed HYDROCODONE-ACETAMINOPHEN 7.5-500 MG TABS 270201 HYDROCODONE-ACETAMINOPHEN Inactive GENERESS FE 0.8-25 MG-MCG CHEW [...] PRN Pain 2011 HYDROCODONE-ACETAMINOPHEN 5-325 MG TABS 980254 HYDROCODONE-ACETAMINOPHEN Inactive DOXYCYCLINE HYCLATE 100 MG CAPS Take one (1) tablet by mouth twice a day DOXYCYCLINE HYCLATE 100 MG CAPS 689258 DOXYCYCLINE HYCLATE Inactive PENICILLIN V POTASSIUM 500 MG TAB 1 four times a day 2 PENICILLIN V POTASSIUM 500 MG TAB 884195 PENICILLIN V POTASSIUM Mangum ctive PRISTIQ 50 MG [id number] 1 po qd PRISTIQ 50 MG [id number] DESVENLAFAXINE SUCCINATE Inactive TYLENOL/CODEINE #3 300-30 MG TAB 1-2 po q6hr PRN Pain TYLENOL/CODEINE #3 300-30 MG TAB 439411 ACETAMINOPHEN-CODEINE Inact krishna CEPHALEXIN 500 MG TABS Take one by mouth four times daily, morning, noon, early evening and bedtime. CEPHALEXIN 500 MG TABS 541105 CEPHALEXIN Inactive LORTAB 5 5-500 MG TABS 1/2 to 1 tablet by mouth go ry 6 hours as needed for pain LORTAB 5 5-500 MG TABS HYDROCODONE-A CETAMINOPHEN Inactive AMITRIPTYLINE HCL 25 MG TAB 1 tab by mouth daily 60 minutes before bedtime AMITRIPTYLINE HCL 25 MG TAB 138881 AMITRIPTYLINE HCL Inactive AMOXICILLIN 500 MG TABS 2 tabs PO bid x 10 d 7 AMOXICILLIN 500 MG TABS 813703 AMOXICILLIN Inactive IMPLANON 68 MG IMPL IMPLANTED IN LEFT ARM IMPLANON 68 MG IMPL ETONOGESTREL Inactive HYDROCODONE-ACETAMINOPHEN 5-325 MG TABS 1 PO tid PRN pain 5 HYDROCODONE-ACETAMINOPHEN 5-325 MG TABS 560639 HYDROCODONE-ACETAMIN OPHEN Inactive BACTRIM DS 800-160 MG TAB 1 tab by mouth twice daily 2 BACTRIM DS 800-160 MG TAB TRIMETHOPRIM-SULFAMETHOXAZOLE Inac tive CEPHALEXIN 500 MG CAPS 1 PO bid x 7 days CEPHALEXIN 500 MG CAPS 422837 CEPHALEXIN Inactive HYDROCODONE-ACETAMINOPHEN 5-325 MG TABS 1 tab by mouth every 6 hours as needed HYDROCODONE-ACETAMINOPHEN 5-325 MG TABS 122155 HYDROCODONE-ACETAMINOPHEN Inactive PROMETHAZINE-CODEINE 6.25-10 MG/5ML SYRP 1 tsp every 6 hrs prn c ough PROMETHAZINE-CODEINE 6.25-10 MG/5ML SYRP 739264 PROMETH AZINE-CODEINE Inactive IBUPROFEN 800 MG TAB 1 pill three times daily as needed for pain IBUPROFEN 800 MG TAB 904687 IBUPROFEN Inactive KEFLEX 500 MG CAP 1 tab po tid KEFLEX 500 MG CAP 849460 CEPHALEXIN Inactive HYDROCODONE-ACETAMINOPHEN 7.5-325 MG TABS 1 four times a day as needed for pain HYDROCODONE-ACETAMINOPHEN 7.5-325 MG TABS 010731 HYDROCODONE-ACETAMINOPHEN Inactive BACTRIM DS 800-160 MG TABS by mouth twice a day 11/05 BACTRIM DS 800-160 MG TABS SULFAMETHOXAZOLE-TRIMETHOPRIM Inactive AMOXICILLIN 875 MG TABS 1 tab by mouth twice daily 201 07/18/07 AMOXICILLIN 875 MG TABS 090252 AMOXICILLIN Inactive KEFLEX 500 MG CAP 1 po tid x 10 days KEFLEX 500 MG CAP 827275 CEPHALEXIN Inactive AMOXICILLIN 875 MG TABS 1 tab by mouth twice daily 201 07/19/27 AMOXICILLIN 875 MG TABS 741183 AMOXICILLIN Inactive AMOXICILLIN 875 MG TABS 1 tab by mouth twice daily 08/09/13 AMOXICILLIN 875 MG TABS 589662 AMOXICILLIN Inactive CIPRO 500 MG TAB 1 tablet by mouth twice daily CIPRO 500 MG TAB 169811 CIPROFLOXACIN HCL Inactive BACTRIM DS 800-160 MG TAB 1 tab by mouth twice daily 2 BACTRIM DS 800-160 MG TAB TRIMETHOPRIM-SULFAMETHOXAZOLE Inac tive LEVAQUIN 500 MG TABS 1 PO q day x 7 days LEVAQUIN 500 MG TABS 670658 LEVOFLOXACIN Inactive Advance Directives Directive Description Start Date PERMISSION TO SHARE Immunizations Vaccine Administration Date Value Standard Alf cription Seasonal influenza vaccine, injectable, containing preservative, for > 3 years old (Afluria, FluLaval, Fluzone, Fluvirin, Fluarix, Agriflu(>= 18 yo)) Fluzone (>3 yrs.) [[id number]] Influenza, seasonal, inject able Seasonal influenza vaccine, injectable, preservative free, for > 3 years old (Afluria, FluLaval, Fluzone, Fluvirin, Fluarix, Agriflu(>= 18 yo)) Fluzone preservative free (>3 yrs.) [[id number]] Influenza, seasonal, injectable, preservative free Seasonal influenza vaccine, injectable, containing preservative, for > 3 years old (Afluria, FluLaval, Fluzone, Fluvirin, Fluarix, Agriflu(>= 18 yo)) Fluzone (>3 yrs.) [[id number]] Influenza, seasonal, inject able Seasonal influenza vaccine, injectable, containing preservative, for > 3 years old (Afluria, FluLaval, Fluzone, Fluvirin, Fluarix, Agriflu(>= 18 yo)) Fluzone (>3 yrs.) [[id number]] Influenza, seasonal, inject able dT (Diphtheria and [...] mg/dL Chart Maintenance: Outside labs entered on [employer]heet - Hematology leukocyte count, blood 8.3 10*3/mm3 erythrocyte (RBC) count 5.2 10*6/mm3 hemoglobin, blood 14.2 g/dL hematocrit, blood 42.6 % mean corpuscular volume, RBC 82.4 fL mean corpuscular hemoglobin, RBC 27.5 pg red blood cell distribution width 12.9 % platelet count 316 10*3/mm3 Lab Report: CBC W/DIFF, Comp. Metabolic Panel, Thyroid Stimulating Hormo ... - Chemistry sodium, serum 140 mmol/L 761-554 6125/02/24 potassium, serum 4.3 mmol/L 3.5-5.2 chloride, serum [...] 4.3-6.0 Lab Report: T3, TOTAL, INSULIN - Roller Mechanic ry triiodothyronine, serum 78 ng/dL 76-181 Lab [...] mg/dL Encounters Code Encounter Date Provider Facility CPT-96557 Level 3 Est. Patient 14:11:58 CDT Kalpesh goins MD [facility] CPT-52392 Level 3 Est. Patient 16:50:00 CDT Michelle MERCADO [facility] CPT-84952 Level 3 Est. Patient 17:11:32 CRUSHER OPERATOR Brandie bates MD PhD [facility] CPT-92517 Level 3 Est. Patient 16:31:47 CRUSHER OPERATOR Shola MCGILL [facility] CPT-65790 Level 3 Est. Patient 17:51:10 CRUSHER OPERATOR Abhinav Galvan MD [facility] CPT-60651 Level 4 Est. Patient 12:54:56 CRUSHER OPERATOR Kalpesh goins MD [facility] CPT-93453 Level 4 Est. Patient 12:53:56 CRUSHER OPERATOR Kalpesh goins MD [facility] CPT-17097 Level 3 Est. Patient 17:56:58 CDT Shola MCGILL [facility] CPT-89646 Level 3 Est. Patient 14:26:20 CDT Janak butcher [facility] CPT-60763 Level 3 Est. Patient 09:38:41 CDT Shola Wright [facility] CPT-61046 Level 3 Est. Patient 14:45:26 CDT Edilberto tiwari [facility] CPT-89202 Level 3 Est. Patient 10:51:33 CDT Hira muniz [facility] CPT-32664 Level 3 Est. Patient 11:57:55 CRUSHER OPERATOR Shola Thao Adriana [facility] CPT-76565 Level 3 Est. Patient 09:53:33 CRUSHER OPERATOR Edilberto tiwari [facility] CPT-87035 Level 3 Est. Patient 14:42:54 CRUSHER OPERATOR Abhinav Galvan MD [facility] CPT-54680 Level 3 Est. Patient 15:10:02 CDT Janak butcher [facility] CPT-96173 Level 3 Est. Patient 15:20:20 CDT Theo dennis MD [facility] CPT-59425 Level 2 Est. Patient 14:08:57 CDT Kalpesh goins MD [facility] CPT-67713 Level 3 Est. Patient 13:56:19 CDT Abdirahman Rios MD [facility] CPT-39360 Level 3 Est. Patient 13:59:37 CDT Abdirahman Rios MD [facility] CPT-72945 Level 2 Est. Patient 14:44:59 CDT Kalpesh goins MD [facility]-90180 Level 3 Est. Patient 06:06:23 CDT Edilberto tiwari [facility] CPT-15600 Level 3 Est. Patient 15:23:54 CDT Abdirahman Rios MD [facility] CPT-71515 Level 3 Est. Patient 15:43:49 CDT Abdirahman Rios MD [facility] CPT-01271 Level 3 Est. Patient 12:46:47 CRUSHER OPERATOR Abdirahman Rios MD [facility] CPT-79076 Level 3 Est. Patient 08:13:35 CRUSHER OPERATOR Abdirahman Rios MD [facility] CPT-44637 Level 2 Est. Patient 09:36:42 CRUSHER OPERATOR Abdirahman Rios MD [facility] CPT-27357 Level 3 Est. Patient 10:56:43 CDT Abdirahman Rios MD [facility] CPT-97854 Level 3 Est. Patient 18:24:52 CDT Abdirahman Rios MD [facility] CPT-18651 Level 3 Est. Patient 13:27:22 CDT Abdirahman Rios MD [facility] Procedures Code Procedure Name Date Entry Date Standard Desc ription CPT-OV Office Visit 15:34:48 CDT CPT-84395 Postop F/U Visit 14:50:12 CDT CPT-77908 Postop F/U Visit 14:41:10 CDT CPT-39012 Venipuncture Draw Fee 11:38:04 CRUSHER OPERATOR CPT-69039 Postop F/U Visit 19:02:59 CRUSHER OPERATOR CPT-82262 Postop F/U Visit 12:04:54 CRUSHER OPERATOR CPT-26482 Administration single or combination vac cine inc oral 15:56:43 CDT CPT-76701 Influenza split virus > age 3 15:56:43 CDT CPT-02330 Hand comp min 3V 14:25:19 CDT CPT-26218 Postop F/U Visit 21:40:51 CDT CPT-47812 Postop F/U Visit 10:58:43 CDT CPT-56073 Administration single or combination vac cine inc oral 12:33:54 CRUSHER OPERATOR CPT-38712 Influenza Preservative Free split virus >age 3 12:33:54 CRUSHER OPERATOR CPT-35214 Administration single or combination vac cine inc oral 09:30:51 CDT CPT-71898 Influenza split virus > age 3 09:30:51 CDT CPT-00693 Postop F/U Visit 15:14:53 CDT CPT-56448 Postop F/U Visit 13:50:14 CDT CPT-29992 Postop F/U Visit 13:34:52 CDT CPT-OV Office Visit 16:55:03 CDT CPT-99805 [place] of cervix w bx ECC 13:32:50 CDT 10/19 CPT-J1885 Toradol 60 mg (Ketorolac) 15:31:59 CDT 2011 CPT-J1885 Toradol 60 mg (Ketorolac) 15:23:54 CDT 2011 CPT-70562 Visit 11:34:37 CRUSHER OPERATOR CPT-39731 Visit 10:52:39 CRUSHER OPERATOR CPT-36288 Visit 10:12:02 CRUSHER OPERATOR CPT-66011 Visit 11:22:43 CRUSHER OPERATOR CPT-99718 Visit 11:24:12 CRUSHER OPERATOR CPT-91470 Visit 10:47:05 CRUSHER OPERATOR CPT-OV Office Visit 10:26:16 CRUSHER OPERATOR CPT-OV Office Visit 15:34:31 CRUSHER OPERATOR CPT-63543 Visit 10:42:08 CRUSHER OPERATOR CPT-22592 Visit 10:52:45 CRUSHER OPERATOR CPT-000 Give Appropriate Flu Vaccine 16:56:41 CDT 2 CPT-00189 Administration single or combination vac cine inc oral 10:33:21 CDT CPT-99449 Influenza split virus > age 3 10:33:21 CDT CPT-45447 Visit 13:23:09 CDT CPT-61125 Visit 18:24:52 CDT CPT-95875 Sono OB comp > 14 weeks 12:07:49 CDT 04/07
--- OUTSIDE RECORDS SUMMARY | 2020-01-18 16:45 | XMS REPORT | Clinical Summary ---
Author Author Admin, Jeri Rashid Organization [facility] Address Unknown Phone Allergies, Adverse Reactions, [...] Good Julian MD Dysuria Hypoglycemia 251.2 Active Ojann Faux Hypoglycemia, unspecified Anxiety 300.00 Active Joann [...] Rios MD Cellulitis and abscess of trunk , INCIDENTAL PROBLEM ICD-V22.2 Inacti ve Abdirahman [...] Name NDC Status Provider Patient Instruction HYDROCODONE-ACETAMINOPHEN 7.5-325 MG TABS 1 by mouth e very 6 hours as needed for pain HYDROCODONE-ACETAMINOPHEN 08769540619 Active Shola MCGILL Active BACTRIM DS 800-160 MG TABS 1 po BID x 7 days 5 SULFAMETHOXAZOLE-TRIMETHOPRIM 68720615880 Active Abdirahman Rios MD Active ENDOCET 10-325 MG TABS 1 q 6 hr prn OXYCODONE-ACETAMINOPHEN 23900847411 No Longer Active Abdirahman Rios MD Active IBUPROFEN 800 MG TABS 1 tid prn IBUPROFEN 972522 71810 No Longer Active Abdirahman Rios MD Active BACTRIM DS 800-160 MG TABS by mouth twice a day 11/05 SULFAMETHOXAZOLE-TRIMETHOPRIM 97018563845 No Longer Active Good Julian MD Active HYDROCODONE-ACETAMINOPHEN 7.5-325 MG TABS 1 four times a day as needed for pain HYDROCODONE-ACETAMINOPHEN 01687296321 No Longer Activ e Good Julian MD Active KEFLEX 500 MG CAP 1 tab po tid CEPHALEXIN 702298 06893 No Longer Active Hira Moser APRN Active IBUPROFEN 800 MG TAB 1 pill three times daily as needed for pain IBUPROFEN 99798384285 No Longer Active Kalpesh Dong MD Active PROMETHAZINE-CODEINE 6.25-10 MG/5ML SYRP 1 tsp every 6 hrs prn c ough PROMETHAZINE-CODEINE 18455686982 No Longer Active Kalpesh Carr Active ALPRAZOLAM 0.5 MG TABS 1 PO bid PRN ALPRAZOLAM 428064 30070 Active Shola MCGILL Active HYDROCODONE-ACETAMINOPHEN 5-325 MG TABS 1 tab by mouth every 6 hours as needed HYDROCODONE-ACETAMINOPHEN 58557622759 No Longer Activ e Shola MCGILL Active CEPHALEXIN 500 MG CAPS 1 PO bid x 7 days CEPHAL EXIN 02528661727 No Longer Active Shola MCGILL Active BACTRIM DS 800-160 MG TAB 1 tab by mouth twice daily 2 TRIMETHOPRIM-SULFAMETHOXAZOLE 94710977141 No Longer Active Kalpesh Dong MD Active HYDROCODONE-ACETAMINOPHEN 5-325 MG TABS 1 PO tid PRN pain 5 HYDROCODONE-ACETAMINOPHEN 53785868207 No Longer Active Abhinav Galvan MD Active IMPLANON 68 MG IMPL IMPLANTED IN LEFT ARM ETONO GESTREL 34283217957 No Longer Active Hira Perazal SYNCHRONIZER Active AMOXICILLIN 500 MG TABS 2 tabs PO bid x 10 d AM OXICILLIN 54979349775 No Longer Active Kalpesh Dong MD Active LEVAQUIN 500 MG TABS 1 PO q day x 7 days LEVOFL OXACIN 19004116682 No Longer Active Shola MCGILL Active PROAIR HFA 108 (90 BASE) MCG/ACT AERS 2 puff q 4-6 hrs PRN ALBUTEROL SULFATE 92538950392 Active Shola MCGILL Acti ve FIORICET 50-325-40 MG TABS 2 PO q 8 hrs PRN FOSTER [id number] 13965618228 Active Abdirahman Rios MD Active AMITRIPTYLINE HCL 25 MG TAB 1 tab by mouth daily 60 minutes before bedtime AMITRIPTYLINE HCL 18044480555 No Longer Active Shola MCGILL Active LORTAB 5 5-500 MG TABS 1/2 to 1 tablet by mouth go ry 6 hours as needed for pain HYDROCODONE-ACETAMINOPHEN 40223932979 No Longer Active Shola MCGILL Active CEPHALEXIN 500 MG TABS Take one by mouth four times daily, morning, noon, early evening and bedtime. CEPHALEXIN 37500260917 No Long er Active Hira Moser APRN Active TYLENOL/CODEINE #3 300-30 MG TAB 1-2 po q6hr PRN Pain ACETAMINOPHEN-CODEINE 40235184162 No Longer Active Edilberto Marino DO Active PRISTIQ 50 MG PH32G-ODM 1 po qd DESVENLAFAXI NE SUCCINATE 26700983484 No Longer Active Edilberto Marino DO Active PENICILLIN V POTASSIUM 500 MG TAB 1 four times a day 2 PENICILLIN V POTASSIUM 60917385247 No Longer Active Edilberto Marino DO Active DOXYCYCLINE HYCLATE 100 MG CAPS Take one (1) tablet by mouth twice a day DOXYCYCLINE HYCLATE 05054375760 No Longer Active Ronnie Galvan MD Active HYDROCODONE-ACETAMINOPHEN 5-325 MG TABS 1 po q 6hr PRN Pain 2011 HYDROCODONE-ACETAMINOPHEN 18759224753 No Longer Active Patri joan Perez RN Active BACTRIM DS 800-160 MG TAB 1 tab by mouth twice daily 2 TRIMETHOPRIM-SULFAMETHOXAZOLE 63593704123 No Longer Active Kalpesh Dong MD Active LORTAB 5 5-500 MG TABS 1/2 to 1 tablet by mouth go ry 4 hours as needed for pain HYDROCODONE-ACETAMINOPHEN 58874440419 No Longer Active Kalpesh Dong MD Active GENERESS FE 0.8-25 MG-MCG CHEW Take one by mouth daily NORETHIN-ETH ESTRADIOL-FE 12274382292 No Longer Active Kalpesh Dong MD Active HYDROCODONE-ACETAMINOPHEN 7.5-500 MG TABS 1-2 every 4 hours as needed HYDROCODONE-ACETAMINOPHEN 72455790353 No Longer Activ e Kalpesh Dong MD Active FERROUS SULFATE 325 (65 FE) MG TABS 1 tablet by mouth twice yung y FERROUS SULFATE 98728402932 No Longer Active Kalpesh Dong MD Active IBUPROFEN 600 MG TAB 1 po q6-8hr PRN IBUPROFEN 09321581654 No Longer Active Kalpesh Dong MD Active SPIRONOLACTONE 25 MG TAB 1 tablet by mouth daily 01/22 SPIRONOLACTONE 80901148648 No Longer Active Kalpesh Dong MD Acti ve HYDROCODONE-ACETAMINOPHEN 7.5-325 MG TABS 1 po QID PRN Pain 2011 HYDROCODONE-ACETAMINOPHEN 44838984058 No Longer Active Kalpesh Dong MD Active CLINDAMYCIN HCL 300 MG CAPS 1 po q6hr x 7 days CLINDAMYCIN HCL 38947996621 No Longer Active Edilberto Marino DO Active PREDNISONE 20 MG TAB 2 tabs daily for 4 days, 1 t ab daily for 4 days, 1/2 tab daily for 4 days PREDNISONE 21638575879 No Longer Active Edilberto Marino DO Active PERCOCET 5-325 MG TABS 1 tablet by mouth every 6 hours as ne eded for pain OXYCODONE-ACETAMINOPHEN 11165625767 No Longer Active Abdirahman Rios MD Active VITAMINS TABS Take one by mouth daily MV & MIN W/FE-FA TABS 74833452449 No Longer Active Abdirahman Rios MD Active LUIS 3-0.02 MG TABS 1 tablet by mouth daily as directed DROSPIRENONE-ETHINYL ESTRADIOL 94464747130 No Longer Active Abdirahman Rios MD Active LORATADINE 10 MG TABS 1 tablet by mouth daily L ORATADINE 36863074564 No Longer Active Kalpesh Dong MD Active HYDROCODONE-ACETAMINOPHEN 5-325 MG TABS 1 po q 6hr PRN Pain 2010 HYDROCODONE-ACETAMINOPHEN 68468070664 No Longer Active Edilberto Marino DO Active BACTRIM DS 800-160 MG TAB 1 tab by mouth twice daily 2 TRIMETHOPRIM-SULFAMETHOXAZOLE 72850801315 No Longer Active Abdirahman Rios MD Active 28-0.8 MG TABS Take one by mouth daily 09/20 VIT-FE FUMARATE-FA 42610652767 No Longer Active Abdirahman Rios MD Active CIPRO 500 MG TAB 1 tablet by mouth twice daily CIPROFLOXACIN HCL 54486684052 No Longer Active Abdirahman Rios MD Active BENADRYL 25 MG CAP 1 po q8hr PRN Congestion DIPHENHYDRAMINE HCL 48696496558 No Longer Active Abdirahman Rios MD Active ZOLOFT 50 MG TAB 1 po qd SERTRALINE HCL 326760 93260 No Longer Active Abdirahman Rios MD Active AMOXICILLIN 875 MG TABS 1 tab by mouth twice daily 201 08/09/13 AMOXICILLIN 29874342812 No Longer Active Abdirahman Rios MD Activ e AMOXICILLIN 875 MG TABS 1 tab by mouth twice daily 201 07/19/27 AMOXICILLIN 84192837722 No Longer Active Abdirahman Rios MD Activ e BACTRIM DS 800-160 MG TAB 2 tab by mouth twice daily 2 TRIMETHOPRIM-SULFAMETHOXAZOLE 82410731153 No Longer Active Abdirahman Rios MD Active KEFLEX 500 MG CAP 1 po tid x 10 days CEPHALEXIN 49470427689 No Longer Active Abdirahman Rios MD Active AMOXICILLIN 875 MG TABS 1 tab by mouth twice daily 201 07/18/07 AMOXICILLIN 52163607329 No Longer Active Abdirahman Rios MD Activ e BACTRIM DS 800-160 MG TAB 2 tab by mouth twice daily 2 BACTRIM DS 800-160 MG TAB TRIMETHOPRIM-SULFAMETHOXAZOLE Inactive ZOLOFT 50 MG TAB 1 po qd ZOLOFT 50 MG TAB 3129 41 SERTRALINE HCL Inactive BENADRYL 25 MG CAP 1 po q8hr PRN Congestion BENADRYL 25 MG CAP 0426517 DIPHENHYDRAMINE HCL Inactive 28-0.8 MG TABS Take one by mouth daily 09/20 28-0.8 MG TABS VIT-FE FUMARATE-FA Inactive HYDROCODONE-ACETAMINOPHEN 5-325 MG TABS 1 po q 6hr PRN Pain 2010 HYDROCODONE-ACETAMINOPHEN 5-325 MG TABS 644832 HYDROCODONE-ACETAMINOPHEN Inactive LORATADINE 10 MG TABS 1 tablet by mouth daily LORATADINE 10 MG TABS 148059 LORATADINE Inactive LUIS 3-0.02 MG TABS 1 tablet by mouth daily as directed LUIS 3-0.02 MG TABS DROSPIRENONE-ETHINYL ESTRADIOL Inactive VITAMINS TABS Take one by mouth daily VITAMINS TABS MV & MIN W/FE-FA TABS Inactive PERCOCET 5-325 MG TABS 1 tablet by mouth every 6 hours as ne eded for pain PERCOCET 5-325 MG TABS 1580427 OXYCODONE-ACETAMIN OPHEN Inactive PREDNISONE 20 MG TAB 2 tabs daily for 4 days, 1 t ab daily for 4 days, 1/2 tab daily for 4 days PREDNISONE 20 MG TAB 665833 PREDNISON E Inactive CLINDAMYCIN HCL 300 MG CAPS 1 po q6hr x 7 days CLINDAMYCIN HCL 300 MG CAPS 548924 CLINDAMYCIN HCL Inactive HYDROCODONE-ACETAMINOPHEN 7.5-325 MG TABS 1 po QID PRN Pain 2011 HYDROCODONE-ACETAMINOPHEN 7.5-325 MG TABS 030416 HYDROCODONE-ACETAMINOPHEN Inactive SPIRONOLACTONE 25 MG TAB 1 tablet by mouth daily 01/22 SPIRONOLACTONE 25 MG TAB 997969 SPIRONOLACTONE Inactive IBUPROFEN 600 MG TAB 1 po q6-8hr PRN IBUPROFEN 600 MG TAB 479201 IBUPROFEN Inactive FERROUS SULFATE 325 (65 FE) MG TABS 1 tablet by mouth twice yung y FERROUS SULFATE 325 (65 FE) MG TABS 394803 FERROUS SULF ATE Inactive HYDROCODONE-ACETAMINOPHEN 7.5-500 MG [...] PRN Pain 2011 HYDROCODONE-ACETAMINOPHEN 5-325 MG TABS 102782 HYDROCODONE-ACETAMINOPHEN Inactive DOXYCYCLINE HYCLATE 100 MG CAPS Take one (1) tablet by mouth twice a day DOXYCYCLINE HYCLATE 100 MG CAPS 809651 DOXYCYCLINE HYCLATE Inactive PENICILLIN V POTASSIUM 500 MG TAB 1 four times a day 2 PENICILLIN V POTASSIUM 500 MG TAB 119874 PENICILLIN V POTASSIUM Siri ctive PRISTIQ 50 MG [id number] 1 po qd PRISTIQ 50 MG [id number] DESVENLAFAXINE SUCCINATE Inactive TYLENOL/CODEINE #3 300-30 MG TAB 1-2 po q6hr PRN Pain TYLENOL/CODEINE #3 300-30 MG TAB 825326 ACETAMINOPHEN-CODEINE Inact krishna CEPHALEXIN 500 MG TABS Take one by mouth four times daily, morning, noon, early evening and bedtime. CEPHALEXIN 500 MG TABS 816361 CEPHALEXIN Inactive LORTAB 5 5-500 MG TABS 1/2 to 1 tablet by mouth go ry 6 hours as needed for pain LORTAB 5 5-500 MG TABS HYDROCODONE-A CETAMINOPHEN Inactive AMITRIPTYLINE HCL 25 MG TAB 1 tab by mouth daily 60 minutes before bedtime AMITRIPTYLINE HCL 25 MG TAB 649742 AMITRIPTYLINE HCL Inactive AMOXICILLIN 500 MG TABS 2 tabs PO bid x 10 d 7 AMOXICILLIN 500 MG TABS 682026 AMOXICILLIN Inactive IMPLANON 68 MG IMPL IMPLANTED IN LEFT ARM IMPLANON 68 MG IMPL ETONOGESTREL Inactive HYDROCODONE-ACETAMINOPHEN 5-325 MG TABS 1 PO tid PRN pain 5 HYDROCODONE-ACETAMINOPHEN 5-325 MG TABS 362796 HYDROCODONE-ACETAMIN OPHEN Inactive BACTRIM DS 800-160 MG TAB 1 tab by mouth twice daily 2 BACTRIM DS 800-160 MG TAB TRIMETHOPRIM-SULFAMETHOXAZOLE Inac tive CEPHALEXIN 500 MG CAPS 1 PO bid x 7 days CEPHALEXIN 500 MG CAPS 499355 CEPHALEXIN Inactive HYDROCODONE-ACETAMINOPHEN 5-325 MG TABS 1 tab by mouth every 6 hours as needed HYDROCODONE-ACETAMINOPHEN 5-325 MG TABS 404345 HYDROCODONE-ACETAMINOPHEN Inactive PROMETHAZINE-CODEINE 6.25-10 MG/5ML SYRP 1 tsp every 6 hrs prn c ough PROMETHAZINE-CODEINE 6.25-10 MG/5ML SYRP 724678 PROMETH AZINE-CODEINE Inactive IBUPROFEN 800 MG TAB 1 pill three times daily as needed for pain IBUPROFEN 800 MG TAB 465753 IBUPROFEN Inactive KEFLEX 500 MG CAP 1 tab po tid KEFLEX 500 MG CAP 677650 CEPHALEXIN Inactive HYDROCODONE-ACETAMINOPHEN 7.5-325 MG TABS 1 four times a day as needed for pain HYDROCODONE-ACETAMINOPHEN 7.5-325 MG TABS 940014 HYDROCODONE-ACETAMINOPHEN Inactive BACTRIM DS 800-160 MG TABS by mouth twice a day 11/05 BACTRIM DS 800-160 MG TABS SULFAMETHOXAZOLE-TRIMETHOPRIM Inactive IBUPROFEN 800 MG TABS 1 tid prn IBUPROFEN 800 MG TABS 495045 IBUPROFEN Inactive ENDOCET 10-325 MG TABS 1 q 6 hr prn ENDOC ET 10-325 MG TABS 5126924 OXYCODONE-ACETAMINOPHEN Inactive AMOXICILLIN 875 MG TABS 1 tab by mouth twice daily 201 07/18/07 AMOXICILLIN 875 MG TABS 498995 AMOXICILLIN Inactive KEFLEX 500 MG CAP 1 po tid x 10 days KEFLEX 500 MG CAP 162134 CEPHALEXIN Inactive AMOXICILLIN 875 MG TABS 1 tab by mouth twice daily 201 07/19/27 AMOXICILLIN 875 MG TABS 008354 AMOXICILLIN Inactive AMOXICILLIN 875 MG TABS 1 tab by mouth twice daily 201 08/09/13 AMOXICILLIN 875 MG TABS 681409 AMOXICILLIN Inactive CIPRO 500 MG TAB 1 tablet by mouth twice daily CIPRO 500 MG TAB 282927 CIPROFLOXACIN HCL Inactive BACTRIM DS 800-160 MG TAB 1 tab by mouth twice daily 2 BACTRIM DS 800-160 MG TAB TRIMETHOPRIM-SULFAMETHOXAZOLE Inac tive LEVAQUIN 500 MG TABS 1 PO q day x 7 days LEVAQUIN 500 MG TABS 153722 LEVOFLOXACIN Inactive Advance Directives Directive Description Start Date PERMISSION TO SHARE Immunizations Vaccine Administration Date Value Standard Alf cription Seasonal influenza vaccine, injectable, containing preservative, for > 3 years old (Afluria, FluLaval, Fluzone, Fluvirin, Fluarix, Agriflu(>= 18 yo)) Fluzone (>3 yrs.) [[id number]] Influenza, seasonal, inject able Seasonal influenza vaccine, injectable, preservative free, for > 3 years old (Afluria, FluLaval, Fluzone, Fluvirin, Fluarix, Agriflu(>= 18 yo)) Fluzone preservative free (>3 yrs.) [[id number]] Influenza, seasonal, injectable, preservative free Seasonal influenza vaccine, injectable, containing preservative, for > 3 years old (Afluria, FluLaval, Fluzone, Fluvirin, Fluarix, Agriflu(>= 18 yo)) Fluzone (>3 yrs.) [[id number]] Influenza, seasonal, inject able Seasonal influenza vaccine, injectable, containing preservative, for > 3 years old (Afluria, FluLaval, Fluzone, Fluvirin, Fluarix, Agriflu(>= 18 yo)) Fluzone (>3 yrs.) [[id number]] Influenza, seasonal, inject able dT (Diphtheria and Tetanus) booster given Histor ical Td(adult) unspecified formulation Vital Signs Date Name Value Unit Range Description blood pressure, diastolic - 8462-4 80 mm[Hg] [...] - 3141-9 237 [lb_av] Weigh t Measured Diagnostic Results Date [...] ... - Chemistry sodium, serum 140 mmol/L 565-760 3484/02/24 potassium, serum 4.3 mmol/L 3.5-5.2 chloride, serum [...] 4.3-6.0 Lab Report: T3, TOTAL, INSULIN - Aviation Program Manager ry triiodothyronine (T3), serum 78 ng/dL 76-181 [...] mg/dL Encounters Code Encounter Date Provider Facility CPT-47162 Level 3 Est. Patient 14:19:37 CDT Abdirahman Rios MD [facility] CPT-32186 Level 3 Est. Patient 14:11:58 CDT Kalpesh goins MD [facility] CPT-57359 Level 3 Est. Patient 16:50:00 CDT Michelle MERCADO [facility] CPT-08681 Level 3 Est. Patient 17:11:32 DEMO SPECIALIST Brandie bates MD PhD [facility] CPT-96788 Level 3 Est. Patient 16:31:47 DEMO SPECIALIST Shola Wright [facility] CPT-61385 Level 3 Est. Patient 17:51:10 DEMO SPECIALIST Abhinav Galvan MD [facility] CPT-31136 Level 4 Est. Patient 12:54:56 DEMO SPECIALIST Kalpesh goins MD [facility] CPT-35982 Level 4 Est. Patient 12:53:56 DEMO SPECIALIST Kalpesh goins MD [facility] CPT-77886 Level 3 Est. Patient 17:56:58 CDT Shola Wright [facility] CPT-51227 Level 3 Est. Patient 14:26:20 CDT Janak MCGILL [facility] CPT-95656 Level 3 Est. Patient 09:38:41 CDT Shola Wright [facility] CPT-19144 Level 3 Est. Patient 14:45:26 CDT Edilberto tiwari [facility] CPT-34234 Level 3 Est. Patient 10:51:33 [facility] Level 3 Est. Patient 11:57:55 DEMO SPECIALIST Shola Thao Francesabi [facility] CPT-78828 Level 3 Est. Patient 09:53:33 DEMO SPECIALIST Edilberto tiwari [facility] CPT-90742 Level 3 Est. Patient 14:42:54 DEMO SPECIALIST Abhinav Galvan MD [facility] CPT-19121 Level 3 Est. Patient 15:10:02 CDT Janak MGCILL [facility] CPT-32198 Level 3 Est. Patient 15:20:20 CDT Theo dennis MD [facility] CPT-24245 Level 2 Est. Patient 14:08:57 CDT Kalpesh goins MD [facility] CPT-27349 Level 3 Est. Patient 13:56:19 CDT Abdirahman Rios MD [facility] CPT-29585 Level 3 Est. Patient 13:59:37 CDT Abdirahman Rios MD [facility] CPT-74488 Level 2 Est. Patient 14:44:59 CDT Kalpesh goins MD [facility]-39374 Level 3 Est. Patient 06:06:23 CDT Edilberto tiwari [facility] CPT-81001 Level 3 Est. Patient 15:23:54 CDT Abdirahman Rios MD [facility] CPT-74730 Level 3 Est. Patient 15:43:49 CDT Abdirahman Rios MD [facility] CPT-54866 Level 3 Est. Patient 12:46:47 DEMO SPECIALIST Abdirahman Rios MD [facility] CPT-36034 Level 3 Est. Patient 08:13:35 DEMO SPECIALIST Abdirahman Rios MD [facility] CPT-36555 Level 2 Est. Patient 09:36:42 DEMO SPECIALIST Abdirahman Rios MD [facility] CPT-28618 Level 3 Est. Patient 10:56:43 CDT Abdirahman Rios MD [facility] CPT-67165 Level 3 Est. Patient 18:24:52 CDT Abdirahman Rios MD [facility] CPT-21208 Level 3 Est. Patient 13:27:22 CDT Abdirahman Rios MD [facility] Procedures Code Procedure Name Date Entry Date Standard Desc ription CPT-OV Office Visit 15:34:48 CDT CPT-55460 Postop F/U Visit 14:50:12 CDT CPT-21574 Postop F/U Visit 14:41:10 CDT CPT-01758 Venipuncture Draw Fee 11:38:04 DEMO SPECIALIST CPT-95576 Postop F/U Visit 19:02:59 DEMO SPECIALIST CPT-06499 Postop F/U Visit 12:04:54 DEMO SPECIALIST CPT-10827 Administration single or combination vac cine inc oral 15:56:43 CDT CPT-69017 Influenza split virus > age 3 15:56:43 CDT CPT-41692 Hand comp min 3V 14:25:19 CDT CPT-04644 Postop F/U Visit 21:40:51 CDT CPT-02631 Postop F/U Visit 10:58:43 CDT CPT-43351 Administration single or combination vac cine inc oral 12:33:54 DEMO SPECIALIST CPT-75545 Influenza Preservative Free split virus >age 3 12:33:54 DEMO SPECIALIST CPT-02107 Administration single or combination vac cine inc oral 09:30:51 CDT CPT-07440 Influenza split virus > age 3 09:30:51 CDT CPT-10824 Postop F/U Visit 15:14:53 CDT CPT-76468 Postop F/U Visit 13:50:14 CDT CPT-07556 Postop F/U Visit 13:34:52 CDT CPT-OV Office Visit 16:55:03 CDT CPT-41400 [place] of cervix w bx ECC 13:32:50 CDT 10/19 CPT-J1885 Toradol 60 mg (Ketorolac) 15:31:59 CDT 2011 CPT-J1885 Toradol 60 mg (Ketorolac) 15:23:54 CDT 2011 CPT-30432 Visit 11:34:37 DEMO SPECIALIST CPT-66255 Visit 10:52:39 DEMO SPECIALIST CPT-01166 Visit 10:12:02 DEMO SPECIALIST CPT-64550 Visit 11:22:43 DEMO SPECIALIST CPT-10509 Visit 11:24:12 DEMO SPECIALIST CPT-16862 Visit 10:47:05 DEMO SPECIALIST CPT-OV Office Visit 10:26:16 DEMO SPECIALIST CPT-OV Office Visit 15:34:31 DEMO SPECIALIST CPT-38877 Visit 10:42:08 DEMO SPECIALIST CPT-67378 Visit 10:52:45 DEMO SPECIALIST CPT-000 Give Appropriate Flu Vaccine 16:56:41 CDT 2 CPT-47375 Administration single or combination vac cine inc oral 10:33:21 CDT CPT-33186 Influenza split virus > age 3 10:33:21 CDT CPT-12587 Visit 13:23:09 CDT CPT-90301 Visit 18:24:52 CDT CPT-06180 Sono OB comp > 14 weeks 12:07:49 CDT 04/07
--- OUTSIDE RECORDS SUMMARY | 2020-01-18 16:46 | XMS REPORT | Clinical Summary ---
Author Author Admin, Jeri Rashid Organization [facility] Address Unknown Phone Unavailable Allergies, Adverse Reactions, [...] Abdominal pain, other specified site; multiple sites , INCIDENTAL PROBLEM ICD-V22.2 Inacti ve Abdirahman [...] 15 MG TABS 1 tab daily MELOXICAM [id number] Ac tive Good Julian MD Active PERCOCET 7.5-325 MG TABS 1 PO q 8 hrs PRN pain OXYCODONE-ACETAMINOPHEN 49188460134 No Longer Active Shola MCGILL Active HYDROCODONE-ACETAMINOPHEN 10-325 MG TABS 1 by mouth ev chaka 8 hours as needed for pain HYDROCODONE-ACETAMINOPHEN 30660905229 Active Shola MCGILL Active HYDROCODONE-ACETAMINOPHEN 7.5-325 MG TABS 1 by mouth e very 6 hours as needed for pain HYDROCODONE-ACETAMINOPHEN 11816515980 No Longer Active Good Julian MD Active LC-5 LIDOCAINE 5 % CREA apply 1 time daily to affected area LIDOCAINE (ANORECTAL) 95499047679 Active Shola MCGILL Active CLINDAMYCIN HCL 300 MG CAPS 1 po QID x 7 days CLINDAMYCIN HCL 75409446813 No Longer Active Abdirahman Rios MD Activ e BACTRIM DS 800-160 MG TABS 1 po BID x 7 days 5 SULFAMETHOXAZOLE-TRIMETHOPRIM 60937861871 No Longer Active Abdirahman Rios MD Active ENDOCET 10-325 MG TABS 1 q 6 hr prn OXYCODONE-ACETAMINOPHEN 06380400592 No Longer Active Abdirahman Rios MD Active IBUPROFEN 800 MG TABS 1 tid prn IBUPROFEN 845447 78285 No Longer Active Abdirahman Rios MD Active BACTRIM DS 800-160 MG TABS by mouth twice a day 11/05 SULFAMETHOXAZOLE-TRIMETHOPRIM 05298173666 No Longer Active Good Julian MD Active HYDROCODONE-ACETAMINOPHEN 7.5-325 MG TABS 1 four times a day as needed for pain HYDROCODONE-ACETAMINOPHEN 18494248769 No Longer Activ e Good Julian MD Active KEFLEX 500 MG CAP 1 tab po tid CEPHALEXIN 581558 99098 No Longer Active Hira Moser GRIT BLASTER Active IBUPROFEN 800 MG TAB 1 pill three times daily as needed for pain IBUPROFEN 56615012440 No Longer Active Kalpesh Dong MD Active PROMETHAZINE-CODEINE 6.25-10 MG/5ML SYRP 1 tsp every 6 hrs prn c ough PROMETHAZINE-CODEINE 17516999563 No Longer Active Kalpesh Carr Active ALPRAZOLAM 0.5 MG TABS 1 PO bid PRN ALPRAZOLAM 587351 29995 Active Shola MCGLIL Active HYDROCODONE-ACETAMINOPHEN 5-325 MG TABS 1 tab by mouth every 6 hours as needed HYDROCODONE-ACETAMINOPHEN 14435884623 No Longer Activ e Shola MCGILL Active CEPHALEXIN 500 MG CAPS 1 PO bid x 7 days CEPHAL EXIN 39597644179 No Longer Active Shola MCGILL Active BACTRIM DS 800-160 MG TAB 1 tab by mouth twice daily 2 TRIMETHOPRIM-SULFAMETHOXAZOLE 30595113424 No Longer Active Kalpesh Dong MD Active HYDROCODONE-ACETAMINOPHEN 5-325 MG TABS 1 PO tid PRN pain 5 HYDROCODONE-ACETAMINOPHEN 93838161757 No Longer Active Abhinav Galvan MD Active IMPLANON 68 MG IMPL IMPLANTED IN LEFT ARM ETONO GESTREL 88577415697 No Longer Active Jillina Shanti GRIT BLASTER Active AMOXICILLIN 500 MG TABS 2 tabs PO bid x 10 d AM OXICILLIN 49994510779 No Longer Active Kalpesh Dong MD Active LEVAQUIN 500 MG TABS 1 PO q day x 7 days LEVOFL OXACIN 57430064219 No Longer Active Shola MCGILL Active PROAIR HFA 108 (90 BASE) MCG/ACT AERS 2 puff q 4-6 hrs PRN ALBUTEROL SULFATE 65332654052 Active Shola MCGILL Acti ve FIORICET 50-325-40 MG TABS 2 PO q 8 hrs PRN FOSTER [id number] Active Shola MCGILL Active AMITRIPTYLINE HCL 25 MG TAB 1 tab by mouth daily 60 minutes before bedtime AMITRIPTYLINE HCL 13700439986 No Longer Active Shola MCGILL Active LORTAB 5 5-500 MG TABS 1/2 to 1 tablet by mouth go ry 6 hours as needed for pain HYDROCODONE-ACETAMINOPHEN 07892193558 No Longer Active Shola MCGILL Active CEPHALEXIN 500 MG TABS Take one by mouth four times daily, morning, noon, early evening and bedtime. CEPHALEXIN 98214157413 No Long er Active Hira Moser APRN Active TYLENOL/CODEINE #3 300-30 MG TAB 1-2 po q6hr PRN Pain ACETAMINOPHEN-CODEINE 83443474861 No Longer Active Edilberto Marino DO Active PRISTIQ 50 MG [id number] 1 po qd DESVENLAFAXI NE SUCCINATE 46345629156 No Longer Active Edilberto Marino DO Active PENICILLIN V POTASSIUM 500 MG TAB 1 four times a day 2 PENICILLIN V POTASSIUM 50392980922 No Longer Active Edilberto Marino DO Active DOXYCYCLINE HYCLATE 100 MG CAPS Take one (1) tablet by mouth twice a day DOXYCYCLINE HYCLATE 34778354178 No Longer Active Ronnie Galvan MD Active HYDROCODONE-ACETAMINOPHEN 5-325 MG TABS 1 po q 6hr PRN Pain 2011 HYDROCODONE-ACETAMINOPHEN 65310885001 No Longer Active Patri joan Perez RN Active BACTRIM DS 800-160 MG TAB 1 tab by mouth twice daily 2 TRIMETHOPRIM-SULFAMETHOXAZOLE 85833238156 No Longer Active Kalpesh Dong MD Active LORTAB 5 5-500 MG TABS 1/2 to 1 tablet by mouth go ry 4 hours as needed for pain HYDROCODONE-ACETAMINOPHEN 48847436930 No Longer Active Kalpesh Dong MD Active GENERESS FE 0.8-25 MG-MCG CHEW Take one by mouth daily NORETHIN-ETH ESTRADIOL-FE 34379175449 No Longer Active Kalpesh Dong MD Active HYDROCODONE-ACETAMINOPHEN 7.5-500 MG TABS 1-2 every 4 hours as needed HYDROCODONE-ACETAMINOPHEN 80417235085 No Longer Activ e Kalpesh Dong MD Active FERROUS SULFATE 325 (65 FE) MG TABS 1 tablet by mouth twice yung y FERROUS SULFATE 50824592853 No Longer Active Kalpesh Dong MD Active IBUPROFEN 600 MG TAB 1 po q6-8hr PRN IBUPROFEN 25932328745 No Longer Active Kalpesh oDng MD Active SPIRONOLACTONE 25 MG TAB 1 tablet by mouth daily 01/22 SPIRONOLACTONE 54948192939 No Longer Active Kalpesh Dong MD Acti ve HYDROCODONE-ACETAMINOPHEN 7.5-325 MG TABS 1 po QID PRN Pain 2011 HYDROCODONE-ACETAMINOPHEN 35285968407 No Longer Active Kalpesh Dong MD Active CLINDAMYCIN HCL 300 MG CAPS 1 po q6hr x 7 days CLINDAMYCIN HCL 13495225593 No Longer Active Edilberto Marino DO Active PREDNISONE 20 MG TAB 2 tabs daily for 4 days, 1 t ab daily for 4 days, 1/2 tab daily for 4 days PREDNISONE 97705561200 No Longer Active Edilberto Marino DO Active PERCOCET 5-325 MG TABS 1 tablet by mouth every 6 hours as ne eded for pain OXYCODONE-ACETAMINOPHEN 30771796420 No Longer Active Abdirahman Rios MD Active VITAMINS TABS Take one by mouth daily MV & MIN W/FE-FA TABS 31877943811 No Longer Active Abdirahman Rios MD Active LUIS 3-0.02 MG TABS 1 tablet by mouth daily as directed DROSPIRENONE-ETHINYL ESTRADIOL 73010804188 No Longer Active Abdirahman Rios MD Active LORATADINE 10 MG TABS 1 tablet by mouth daily L ORATADINE 81957767979 No Longer Active Kalpesh Dong MD Active HYDROCODONE-ACETAMINOPHEN 5-325 MG TABS 1 po q 6hr PRN Pain 2010 HYDROCODONE-ACETAMINOPHEN 90218262665 No Longer Active Edilberto Marino DO Active BACTRIM DS 800-160 MG TAB 1 tab by mouth twice daily 2 TRIMETHOPRIM-SULFAMETHOXAZOLE 34269295118 No Longer Active Abdirahman Rios MD Active 28-0.8 MG TABS Take one by mouth daily 09/20 VIT-FE FUMARATE-FA 77827810240 No Longer Active Abdirahman Rios MD Active CIPRO 500 MG TAB 1 tablet by mouth twice daily CIPROFLOXACIN HCL 04316625760 No Longer Active Abdirahman Rios MD Active BENADRYL 25 MG CAP 1 po q8hr PRN Congestion DIPHENHYDRAMINE HCL 53205784638 No Longer Active Abdirahman Rios MD Active ZOLOFT 50 MG TAB 1 po qd SERTRALINE HCL 535118 22897 No Longer Active Abdirahman Rios MD Active AMOXICILLIN 875 MG TABS 1 tab by mouth twice daily 201 08/09/13 AMOXICILLIN 92910272501 No Longer Active Abdirahman Rios MD Activ e AMOXICILLIN 875 MG TABS 1 tab by mouth twice daily 201 07/19/27 AMOXICILLIN 47020075583 No Longer Active Abdirahman Rios MD Activ e BACTRIM DS 800-160 MG TAB 2 tab by mouth twice daily 2 TRIMETHOPRIM-SULFAMETHOXAZOLE 10478085300 No Longer Active Abdirahman Rios MD Active KEFLEX 500 MG CAP 1 po tid x 10 days CEPHALEXIN 81730688034 No Longer Active Abdirahman Rios MD Active AMOXICILLIN 875 MG TABS 1 tab by mouth twice daily 201 07/18/07 AMOXICILLIN 98963979775 No Longer Active Abdirahman Rios MD Activ e BACTRIM DS 800-160 MG TAB 2 tab by mouth twice daily 2 BACTRIM DS 800-160 MG TAB TRIMETHOPRIM-SULFAMETHOXAZOLE Inactive ZOLOFT 50 MG TAB 1 po qd ZOLOFT 50 MG TAB 3129 41 SERTRALINE HCL Inactive BENADRYL 25 MG CAP 1 po q8hr PRN Congestion BENADRYL 25 MG CAP 5819448 DIPHENHYDRAMINE HCL Inactive 28-0.8 MG TABS Take one by mouth daily 09/20 28-0.8 MG TABS VIT-FE FUMARATE-FA Inactive HYDROCODONE-ACETAMINOPHEN 5-325 MG TABS 1 po q 6hr PRN Pain 2010 HYDROCODONE-ACETAMINOPHEN 5-325 MG TABS 586876 HYDROCODONE-ACETAMINOPHEN Inactive LORATADINE 10 MG TABS 1 tablet by mouth daily LORATADINE 10 MG TABS 763373 LORATADINE Inactive LUIS 3-0.02 MG TABS 1 tablet by mouth daily as directed LUIS 3-0.02 MG TABS DROSPIRENONE-ETHINYL ESTRADIOL Inactive VITAMINS TABS Take one by mouth daily VITAMINS TABS MV & MIN W/FE-FA TABS Inactive PERCOCET 5-325 MG TABS 1 tablet by mouth every 6 hours as ne eded for pain PERCOCET 5-325 MG TABS 3762069 OXYCODONE-ACETAMIN OPHEN Inactive PREDNISONE 20 MG TAB 2 tabs daily for 4 days, 1 t ab daily for 4 days, 1/2 tab daily for 4 days PREDNISONE 20 MG TAB 302102 PREDNISON E Inactive CLINDAMYCIN HCL 300 MG CAPS 1 po q6hr x 7 days CLINDAMYCIN HCL 300 MG CAPS 986596 CLINDAMYCIN HCL Inactive HYDROCODONE-ACETAMINOPHEN 7.5-325 MG TABS 1 po QID PRN Pain 2011 HYDROCODONE-ACETAMINOPHEN 7.5-325 MG TABS 447975 HYDROCODONE-ACETAMINOPHEN Inactive SPIRONOLACTONE 25 MG TAB 1 tablet by mouth daily 01/22 SPIRONOLACTONE 25 MG TAB 729761 SPIRONOLACTONE Inactive IBUPROFEN 600 MG TAB 1 po q6-8hr PRN IBUPROFEN 600 MG TAB 087875 IBUPROFEN Inactive FERROUS SULFATE 325 (65 FE) MG TABS 1 tablet by mouth twice yung y FERROUS SULFATE 325 (65 FE) MG TABS 901472 FERROUS SULF ATE Inactive HYDROCODONE-ACETAMINOPHEN 7.5-500 MG [...] PRN Pain 2011 HYDROCODONE-ACETAMINOPHEN 5-325 MG TABS 880225 HYDROCODONE-ACETAMINOPHEN Inactive DOXYCYCLINE HYCLATE 100 MG CAPS Take one (1) tablet by mouth twice a day DOXYCYCLINE HYCLATE 100 MG CAPS 117157 DOXYCYCLINE HYCLATE Inactive PENICILLIN V POTASSIUM 500 MG TAB 1 four times a day 2 PENICILLIN V POTASSIUM 500 MG TAB 290298 PENICILLIN V POTASSIUM Siri ctive PRISTIQ 50 MG [id number] 1 po qd PRISTIQ 50 MG [id number] DESVENLAFAXINE SUCCINATE Inactive TYLENOL/CODEINE #3 300-30 MG TAB 1-2 po q6hr PRN Pain TYLENOL/CODEINE #3 300-30 MG TAB 498822 ACETAMINOPHEN-CODEINE Inact krishna CEPHALEXIN 500 MG TABS Take one by mouth four times daily, morning, noon, early evening and bedtime. CEPHALEXIN 500 MG TABS 024479 CEPHALEXIN Inactive LORTAB 5 5-500 MG TABS 1/2 to 1 tablet by mouth go ry 6 hours as needed for pain LORTAB 5 5-500 MG TABS HYDROCODONE-A CETAMINOPHEN Inactive AMITRIPTYLINE HCL 25 MG TAB 1 tab by mouth daily 60 minutes before bedtime AMITRIPTYLINE HCL 25 MG TAB 885039 AMITRIPTYLINE HCL Inactive AMOXICILLIN 500 MG TABS 2 tabs PO bid x 10 d 7 AMOXICILLIN 500 MG TABS 209923 AMOXICILLIN Inactive IMPLANON 68 MG IMPL IMPLANTED IN LEFT ARM IMPLANON 68 MG IMPL ETONOGESTREL Inactive HYDROCODONE-ACETAMINOPHEN 5-325 MG TABS 1 PO tid PRN pain 5 HYDROCODONE-ACETAMINOPHEN 5-325 MG TABS 582186 HYDROCODONE-ACETAMIN OPHEN Inactive BACTRIM DS 800-160 MG TAB 1 tab by mouth twice daily 2 BACTRIM DS 800-160 MG TAB TRIMETHOPRIM-SULFAMETHOXAZOLE Inac tive CEPHALEXIN 500 MG CAPS 1 PO bid x 7 days CEPHALEXIN 500 MG CAPS 261691 CEPHALEXIN Inactive HYDROCODONE-ACETAMINOPHEN 5-325 MG TABS 1 tab by mouth every 6 hours as needed HYDROCODONE-ACETAMINOPHEN 5-325 MG TABS 620502 HYDROCODONE-ACETAMINOPHEN Inactive PROMETHAZINE-CODEINE 6.25-10 MG/5ML SYRP 1 tsp every 6 hrs prn c ough PROMETHAZINE-CODEINE 6.25-10 MG/5ML SYRP 181230 PROMETH AZINE-CODEINE Inactive IBUPROFEN 800 MG TAB 1 pill three times daily as needed for pain IBUPROFEN 800 MG TAB 999332 IBUPROFEN Inactive KEFLEX 500 MG CAP 1 tab po tid KEFLEX 500 MG CAP 009365 CEPHALEXIN Inactive HYDROCODONE-ACETAMINOPHEN 7.5-325 MG TABS 1 four times a day as needed for pain HYDROCODONE-ACETAMINOPHEN 7.5-325 MG TABS 450021 HYDROCODONE-ACETAMINOPHEN Inactive BACTRIM DS 800-160 MG TABS by mouth twice a day 11/05 BACTRIM DS 800-160 MG TABS SULFAMETHOXAZOLE-TRIMETHOPRIM Inactive IBUPROFEN 800 MG TABS 1 tid prn IBUPROFEN 800 MG TABS 130446 IBUPROFEN Inactive ENDOCET 10-325 MG TABS 1 q 6 hr prn ENDOC ET 10-325 MG TABS 0809661 OXYCODONE-ACETAMINOPHEN Inactive HYDROCODONE-ACETAMINOPHEN 7.5-325 MG TABS 1 by mouth e very 6 hours as needed for pain HYDROCODONE-ACETAMINOPHEN 7.5-325 MG TABS 160486 HYDROCODONE-ACETAMINOPHEN Inactive PERCOCET 7.5-325 MG TABS 1 PO q 8 hrs PRN pain PERCOCET 7.5-325 MG TABS 1698221 OXYCODONE-ACETAMINOPHEN Inactive AMOXICILLIN 875 MG TABS 1 tab by mouth twice daily 07/18/07 AMOXICILLIN 875 MG TABS 766200 AMOXICILLIN Inactive KEFLEX 500 MG CAP 1 po tid x 10 days KEFLEX 500 MG CAP 855980 CEPHALEXIN Inactive AMOXICILLIN 875 MG TABS 1 tab by mouth twice daily 07/19/27 AMOXICILLIN 875 MG TABS 266441 AMOXICILLIN Inactive AMOXICILLIN 875 MG TABS 1 tab by mouth twice daily 08/09/13 AMOXICILLIN 875 MG TABS 249918 AMOXICILLIN Inactive CIPRO 500 MG TAB 1 tablet by mouth twice daily CIPRO 500 MG TAB 835140 CIPROFLOXACIN HCL Inactive BACTRIM DS 800-160 MG TAB 1 tab by mouth twice daily 2 BACTRIM DS 800-160 MG TAB TRIMETHOPRIM-SULFAMETHOXAZOLE Inac tive LEVAQUIN 500 MG TABS 1 PO q day x 7 days LEVAQUIN 500 MG TABS 817662 LEVOFLOXACIN Inactive CLINDAMYCIN HCL 300 MG CAPS 1 po QID x 7 days CLINDAMYCIN HCL 300 MG CAPS 972391 CLINDAMYCIN HCL Inactive Advance Directives Directive Description Start Date PERMISSION TO SHARE Immunizations Vaccine Administration Date Value Standard Afl cription Seasonal influenza vaccine, injectable, containing preservative, for > 3 years old (Afluria, FluLaval, Fluzone, Fluvirin, Fluarix, Agriflu(>= 18 yo)) Fluzone (>3 yrs.) [[id number]] Influenza, seasonal, inject able Seasonal influenza vaccine, injectable, preservative free, for > 3 years old (Afluria, FluLaval, Fluzone, Fluvirin, Fluarix, Agriflu(>= 18 yo)) Fluzone preservative free (>3 yrs.) [[id number]] Influenza, seasonal, injectable, preservative free Seasonal influenza vaccine, injectable, containing preservative, for > 3 years old (Afluria, FluLaval, Fluzone, Fluvirin, Fluarix, Agriflu(>= 18 yo)) Fluzone (>3 yrs.) [[id number]] Influenza, seasonal, inject able Seasonal influenza vaccine, injectable, containing preservative, for > 3 years old (Afluria, FluLaval, Fluzone, Fluvirin, Fluarix, Agriflu(>= 18 yo)) Fluzone (>3 yrs.) [[id number]] Influenza, seasonal, inject able dT (Diphtheria and [...] - 3141-9 236 [lb_av] Weigh t Measured Diagnostic Results Date [...] ... - Chemistry sodium, serum 140 mmol/L 177-569 1086/02/24 potassium, serum 4.3 mmol/L 3.5-5.2 chloride, serum [...] 4.3-6.0 Lab Report: T3, TOTAL, INSULIN - [facility] [employer] ry triiodothyronine (T3), serum 78 ng/dL 76-181 [...] mg/dL Encounters Code Encounter Date Provider Facility CPT-25653 Level 3 Est. Patient 14:19:37 CDT Abdirahman Rios MD [facility] CPT-42404 Level 3 Est. Patient 14:11:58 CDT Kalpesh goins MD [facility] CPT-63614 Level 3 Est. Patient 16:50:00 CDT Michelle BRADFORDP [facility] CPT-44100 Level 3 Est. Patient 17:11:32 CAN FILLING MACHINE OPERATOR Brandie bates MD PhD [facility] CPT-70807 Level 3 Est. Patient 16:31:47 CAN FILLING MACHINE OPERATOR Shola [facility] CPT-27634 Level 3 Est. Patient 17:51:10 CAN FILLING MACHINE OPERATOR Abhinav Galvan MD [facility] CPT-04899 Level 4 Est. Patient 12:54:56 CAN FILLING MACHINE OPERATOR Kalpesh goins MD [facility]-05518 Level 4 Est. Patient 12:53:56 CAN FILLING MACHINE OPERATOR Kalpesh goins MD [facility] CPT-75327 Level 3 Est. Patient 17:56:58 CDT Shola [facility] CPT-54100 Level 3 Est. Patient 14:26:20 CDT Janak butcher [facility] CPT-07343 Level 3 Est. Patient 09:38:41 CDT Shola [facility] CPT-37323 Level 3 Est. Patient 14:45:26 CDT Edilberto tiwari [facility] CPT-20543 Level 3 Est. Patient 10:51:33 [facility] Est. Patient 11:57:55 CAN FILLING MACHINE OPERATOR Shola [facility] CPT-52328 Level 3 Est. Patient 09:53:33 CAN FILLING MACHINE OPERATOR Edilberto tiwari [facility] CPT-16596 Level 3 Est. Patient 14:42:54 CAN FILLING MACHINE OPERATOR Abhinav Galvan MD [facility]-47946 Level 3 Est. Patient 15:10:02 CDT Janak MCGILL [facility] CPT-82941 Level 3 Est. Patient 15:20:20 CDT Theo dennis MD [facility] CPT-70415 Level 2 Est. Patient 14:08:57 CDT Kalpesh goins MD [facility] CPT-70250 Level 3 Est. Patient 13:56:19 CDT Abdirahman Rios MD [facility] CPT-62035 Level 3 Est. Patient 13:59:37 CDT Abdirahman Rios MD [facility] CPT-58288 Level 2 Est. Patient 14:44:59 CDT Kalpesh goins MD [facility] CPT-09267 Level 3 Est. Patient 06:06:23 CDT Edilberto tiwari DO [facility] CPT-03528 Level 3 Est. Patient 15:23:54 CDT Abdirahman Rios MD [facility] CPT-53130 Level 3 Est. Patient 15:43:49 CDT Abdirahman Rios MD [facility] CPT-31233 Level 3 Est. Patient 12:46:47 CAN FILLING MACHINE OPERATOR Abdirahman Rios MD [facility] CPT-47085 Level 3 Est. Patient 08:13:35 CAN FILLING MACHINE OPERATOR Abdirahman Rios MD [facility] CPT-90789 Level 2 Est. Patient 09:36:42 CAN FILLING MACHINE OPERATOR Abdirahman Rios MD [facility] CPT-93234 Level 3 Est. Patient 10:56:43 CDT Abdirahman Rios MD [facility] CPT-52355 Level 3 Est. Patient 18:24:52 CDT Abdirahman Rios MD [facility] CPT-14273 Level 3 Est. Patient 13:27:22 CDT Abdirahman Rios MD [facility] Procedures Code Procedure Name Date Entry Date Standard Desc ription CPT-OV Office Visit 16:39:18 CDT CPT-OV Office Visit 16:16:36 CDT CPT-OV Office Visit 15:34:48 CDT CPT-10638 Postop F/U Visit 14:50:12 CDT CPT-96221 Postop F/U Visit 14:41:10 CDT CPT-89042 Venipuncture Draw Fee 11:38:04 CAN FILLING MACHINE OPERATOR CPT-55365 Postop F/U Visit 19:02:59 CAN FILLING MACHINE OPERATOR CPT-17073 Postop F/U Visit 12:04:54 CAN FILLING MACHINE OPERATOR CPT-97382 Administration single or combination vac cine inc oral 15:56:43 CDT CPT-41319 Influenza split virus > age 3 15:56:43 CDT CPT-45023 Hand comp min 3V 14:25:19 CDT CPT-75841 Postop F/U Visit 21:40:51 CDT CPT-45875 Postop F/U Visit 10:58:43 CDT CPT-40912 Administration single or combination vac cine inc oral 12:33:54 CAN FILLING MACHINE OPERATOR CPT-03155 Influenza Preservative Free split virus >age 3 12:33:54 CAN FILLING MACHINE OPERATOR CPT-94646 Administration single or combination vac cine inc oral 09:30:51 CDT CPT-43733 Influenza split virus > age 3 09:30:51 CDT CPT-56558 Postop F/U Visit 15:14:53 CDT CPT-31830 Postop F/U Visit 13:50:14 CDT CPT-88644 Postop F/U Visit 13:34:52 CDT CPT-OV Office Visit 16:55:03 CDT CPT-48356 [place] cerv[place] w bx ECC 13:32:50 CDT 10/19 CPT-J1885 Toradol 60 mg (Ketorolac) 15:31:59 CDT 2011 CPT-J1885 Toradol 60 mg (Ketorolac) 15:23:54 CDT 2011 CPT-65747 Visit 11:34:37 CAN FILLING MACHINE OPERATOR CPT-96898 Visit 10:52:39 CAN FILLING MACHINE OPERATOR CPT-98040 Visit 10:12:02 CAN FILLING MACHINE OPERATOR CPT-53453 Visit 11:22:43 CAN FILLING MACHINE OPERATOR CPT-84297 Visit 11:24:12 CAN FILLING MACHINE OPERATOR CPT-36904 Visit 10:47:05 CAN FILLING MACHINE OPERATOR CPT-OV Office Visit 10:26:16 CAN FILLING MACHINE OPERATOR CPT-OV Office Visit 15:34:31 CAN FILLING MACHINE OPERATOR CPT-13112 Visit 10:42:08 CAN FILLING MACHINE OPERATOR CPT-70628 Visit 10:52:45 CAN FILLING MACHINE OPERATOR CPT-000 Give Appropriate Flu Vaccine 16:56:41 CDT 2 CPT-17245 Administration single or combination vac cine inc oral 10:33:21 CDT CPT-27102 Influenza split virus > age 3 10:33:21 CDT CPT-55834 Visit 13:23:09 CDT CPT-81564 Visit 18:24:52 CDT CPT-56531 Sono OB comp > 14 weeks 12:07:49 CDT 04/07
--- OUTSIDE RECORDS SUMMARY | 2020-01-18 16:46 | XMS REPORT | Clinical Summary ---
[...] 15 MG TABS 1 tab daily MELOXICAM [id number] Ac jason Julian MD Active PERCOCET 7.5-325 MG TABS 1 PO q 8 hrs PRN pain OXYCODONE-ACETAMINOPHEN 84627783268 No Longer Active Shola MCGILL Active HYDROCODONE-ACETAMINOPHEN 10-325 MG TABS 1 by mouth ev chaka 8 hours as needed for pain HYDROCODONE-ACETAMINOPHEN 53329510725 Active Shola MCGILL Active HYDROCODONE-ACETAMINOPHEN 7.5-325 MG TABS 1 by mouth e very 6 hours as needed for pain HYDROCODONE-ACETAMINOPHEN 04393827923 No Longer Active Good Julian MD Active LC-5 LIDOCAINE 5 % CREA apply 1 time daily to affected area LIDOCAINE (ANORECTAL) 99442533288 Active Shola MCGILL Active CLINDAMYCIN HCL 300 MG CAPS 1 po QID x 7 days CLINDAMYCIN HCL 91683591665 No Longer Active Abdirahman Rios MD Activ e BACTRIM DS 800-160 MG TABS 1 po BID x 7 days 5 SULFAMETHOXAZOLE-TRIMETHOPRIM 07012193585 No Longer Active Abdirahman Rios MD Active ENDOCET 10-325 MG TABS 1 q 6 hr prn OXYCODONE-ACETAMINOPHEN 01900249749 No Longer Active Abdirahman Rios MD Active IBUPROFEN 800 MG TABS 1 tid prn IBUPROFEN 565816 22178 No Longer Active Abdirahman Rios MD Active BACTRIM DS 800-160 MG TABS by mouth twice a day 11/05 SULFAMETHOXAZOLE-TRIMETHOPRIM 83195179548 No Longer Active Good Julian MD Active HYDROCODONE-ACETAMINOPHEN 7.5-325 MG TABS 1 four times a day as needed for pain HYDROCODONE-ACETAMINOPHEN 10384223858 No Longer Activ e Good Julian MD Active KEFLEX 500 MG CAP 1 tab po tid CEPHALEXIN 820076 34291 No Longer Active Hira Moser APRN Active IBUPROFEN 800 MG TAB 1 pill three times daily as needed for pain IBUPROFEN 37205397164 No Longer Active Kalpesh Dong MD Active PROMETHAZINE-CODEINE 6.25-10 MG/5ML SYRP 1 tsp every 6 hrs prn c ough PROMETHAZINE-CODEINE 23003388414 No Longer Active Kalpesh Carr Active ALPRAZOLAM 0.5 MG TABS 1 PO bid PRN ALPRAZOLAM 223185 57000 Active Shola MCGILL Active HYDROCODONE-ACETAMINOPHEN 5-325 MG TABS 1 tab by mouth every 6 hours as needed HYDROCODONE-ACETAMINOPHEN 68073420119 No Longer Activ e Shola MCGILL Active CEPHALEXIN 500 MG CAPS 1 PO bid x 7 days CEPHAL EXIN 97184153070 No Longer Active Shola MCGILL Active BACTRIM DS 800-160 MG TAB 1 tab by mouth twice daily 2 TRIMETHOPRIM-SULFAMETHOXAZOLE 38016136347 No Longer Active Kalpesh Dong MD Active HYDROCODONE-ACETAMINOPHEN 5-325 MG TABS 1 PO tid PRN pain 5 HYDROCODONE-ACETAMINOPHEN 22818128439 No Longer Active Abhinav Galvan MD Active IMPLANON 68 MG IMPL IMPLANTED IN LEFT ARM ETONO GESTREL 80695853402 No Longer Active Jielias Perazal MANAGER OF FINANCIAL REPORTING Active AMOXICILLIN 500 MG TABS 2 tabs PO bid x 10 d AM OXICILLIN 86766714221 No Longer Active Kalpesh Dong MD Active LEVAQUIN 500 MG TABS 1 PO q day x 7 days LEVOFL OXACIN 52077195132 No Longer Active Shola MCGILL Active PROAIR HFA 108 (90 BASE) MCG/ACT AERS 2 puff q 4-6 hrs PRN ALBUTEROL SULFATE 22293746667 Active Shola MCGILL Acti ve FIORICET 50-325-40 MG TABS 2 PO q 8 hrs PRN FOSTER [id number] Active Shola MCGILL Active AMITRIPTYLINE HCL 25 MG TAB 1 tab by mouth daily 60 minutes before bedtime AMITRIPTYLINE HCL 19858172051 No Longer Active Shola MCGILL Active LORTAB 5 5-500 MG TABS 1/2 to 1 tablet by mouth go ry 6 hours as needed for pain HYDROCODONE-ACETAMINOPHEN 27765128566 No Longer Active Shola MCGILL Active CEPHALEXIN 500 MG TABS Take one by mouth four times daily, morning, noon, early evening and bedtime. CEPHALEXIN 04650041838 No Long er Active Hira Pearzaabel MANAGER OF FINANCIAL REPORTING Active TYLENOL/CODEINE #3 300-30 MG TAB 1-2 po q6hr PRN Pain ACETAMINOPHEN-CODEINE 64519860118 No Longer Active Edilberto Marino DO Active PRISTIQ 50 MG [id number] 1 po qd DESVENLAFAXI NE SUCCINATE 11732570434 No Longer Active Edilberto Marino DO Active PENICILLIN V POTASSIUM 500 MG TAB 1 four times a day 2 PENICILLIN V POTASSIUM 11195411579 No Longer Active Edilberto Marino DO Active DOXYCYCLINE HYCLATE 100 MG CAPS Take one (1) tablet by mouth twice a day DOXYCYCLINE HYCLATE 06193740522 No Longer Active Ronnie Galvan MD Active HYDROCODONE-ACETAMINOPHEN 5-325 MG TABS 1 po q 6hr PRN Pain 2011 HYDROCODONE-ACETAMINOPHEN 92400139646 No Longer Active Patri joan Perez RN Active BACTRIM DS 800-160 MG TAB 1 tab by mouth twice daily 2 TRIMETHOPRIM-SULFAMETHOXAZOLE 84390958087 No Longer Active Kalpesh Dong MD Active LORTAB 5 5-500 MG TABS 1/2 to 1 tablet by mouth go ry 4 hours as needed for pain HYDROCODONE-ACETAMINOPHEN 26996648927 No Longer Active Kalpesh Dong MD Active GENERESS FE 0.8-25 MG-MCG CHEW Take one by mouth daily NORETHIN-ETH ESTRADIOL-FE 22161824627 No Longer Active Kalpesh Dong MD Active HYDROCODONE-ACETAMINOPHEN 7.5-500 MG TABS 1-2 every 4 hours as needed HYDROCODONE-ACETAMINOPHEN 12003601878 No Longer Activ e Kalpesh Dong MD Active FERROUS SULFATE 325 (65 FE) MG TABS 1 tablet by mouth twice yung y FERROUS SULFATE 04529711019 No Longer Active Kalpesh Dong MD Active IBUPROFEN 600 MG TAB 1 po q6-8hr PRN IBUPROFEN 14879579757 No Longer Active Kalpesh Dong MD Active SPIRONOLACTONE 25 MG TAB 1 tablet by mouth daily 01/22 SPIRONOLACTONE 53544624359 No Longer Active Kalpesh Dong MD Acti ve HYDROCODONE-ACETAMINOPHEN 7.5-325 MG TABS 1 po QID PRN Pain 2011 HYDROCODONE-ACETAMINOPHEN 05488249730 No Longer Active Kalpesh Dong MD Active CLINDAMYCIN HCL 300 MG CAPS 1 po q6hr x 7 days CLINDAMYCIN HCL 37582621771 No Longer Active Edilberto Marino DO Active PREDNISONE 20 MG TAB 2 tabs daily for 4 days, 1 t ab daily for 4 days, 1/2 tab daily for 4 days PREDNISONE 58084046121 No Longer Active Edilberto Marino DO Active PERCOCET 5-325 MG TABS 1 tablet by mouth every 6 hours as ne eded for pain OXYCODONE-ACETAMINOPHEN 97731198007 No Longer Active Abdirahman Rios MD Active VITAMINS TABS Take one by mouth daily MV & MIN W/FE-FA TABS 44820103828 No Longer Active Abdirahman Rios MD Active LUIS 3-0.02 MG TABS 1 tablet by mouth daily as directed DROSPIRENONE-ETHINYL ESTRADIOL 98428602907 No Longer Active Abdirahman Rios MD Active LORATADINE 10 MG TABS 1 tablet by mouth daily L ORATADINE 04022189658 No Longer Active Kalpesh Dong MD Active HYDROCODONE-ACETAMINOPHEN 5-325 MG TABS 1 po q 6hr PRN Pain 2010 HYDROCODONE-ACETAMINOPHEN 47441699180 No Longer Active Edilberto Marino DO Active BACTRIM DS 800-160 MG TAB 1 tab by mouth twice daily 2 TRIMETHOPRIM-SULFAMETHOXAZOLE 66652034826 No Longer Active Abdirahman Rios MD Active 28-0.8 MG TABS Take one by mouth daily 09/20 VIT-FE FUMARATE-FA 23928015068 No Longer Active Abdirahman Rios MD Active CIPRO 500 MG TAB 1 tablet by mouth twice daily CIPROFLOXACIN HCL 14028685386 No Longer Active Abdirahman Rios MD Active BENADRYL 25 MG CAP 1 po q8hr PRN Congestion DIPHENHYDRAMINE HCL 54780060347 No Longer Active Abdirahman Rios MD Active ZOLOFT 50 MG TAB 1 po qd SERTRALINE HCL 389706 38372 No Longer Active Abdirahman Rios MD Active AMOXICILLIN 875 MG TABS 1 tab by mouth twice daily 201 08/09/13 AMOXICILLIN 34702480905 No Longer Active Abdirahman Rios MD Activ e AMOXICILLIN 875 MG TABS 1 tab by mouth twice daily 201 07/19/27 AMOXICILLIN 15613352357 No Longer Active Abdirahman Rios MD Activ e BACTRIM DS 800-160 MG TAB 2 tab by mouth twice daily 2 TRIMETHOPRIM-SULFAMETHOXAZOLE 60979690265 No Longer Active Abdirahman Rios MD Active KEFLEX 500 MG CAP 1 po tid x 10 days CEPHALEXIN 09839105487 No Longer Active Abdirahman Rios MD Active AMOXICILLIN 875 MG TABS 1 tab by mouth twice daily 201 07/18/07 AMOXICILLIN 64561196087 No Longer Active Abdirahman Rios MD Activ e BACTRIM DS 800-160 MG TAB 2 tab by mouth twice daily 2 BACTRIM DS 800-160 MG TAB TRIMETHOPRIM-SULFAMETHOXAZOLE Inactive ZOLOFT 50 MG TAB 1 po qd ZOLOFT 50 MG TAB 3129 41 SERTRALINE HCL Inactive BENADRYL 25 MG CAP 1 po q8hr PRN Congestion BENADRYL 25 MG CAP 4870675 DIPHENHYDRAMINE HCL Inactive 28-0.8 MG TABS Take one by mouth daily 09/20 28-0.8 MG TABS VIT-FE FUMARATE-FA Inactive HYDROCODONE-ACETAMINOPHEN 5-325 MG TABS 1 po q 6hr PRN Pain 2010 HYDROCODONE-ACETAMINOPHEN 5-325 MG TABS 164712 HYDROCODONE-ACETAMINOPHEN Inactive LORATADINE 10 MG TABS 1 tablet by mouth daily LORATADINE 10 MG TABS 492662 LORATADINE Inactive LUIS 3-0.02 MG TABS 1 tablet by mouth daily as directed LUIS 3-0.02 MG TABS DROSPIRENONE-ETHINYL ESTRADIOL Inactive VITAMINS TABS Take one by mouth daily VITAMINS TABS MV & MIN W/FE-FA TABS Inactive PERCOCET 5-325 MG TABS 1 tablet by mouth every 6 hours as ne eded for pain PERCOCET 5-325 MG TABS 7138616 OXYCODONE-ACETAMIN OPHEN Inactive PREDNISONE 20 MG TAB 2 tabs daily for 4 days, 1 t ab daily for 4 days, 1/2 tab daily for 4 days PREDNISONE 20 MG TAB 204814 PREDNISON E Inactive CLINDAMYCIN HCL 300 MG CAPS 1 po q6hr x 7 days CLINDAMYCIN HCL 300 MG CAPS 082053 CLINDAMYCIN HCL Inactive HYDROCODONE-ACETAMINOPHEN 7.5-325 MG TABS 1 po QID PRN Pain 2011 HYDROCODONE-ACETAMINOPHEN 7.5-325 MG TABS 718876 HYDROCODONE-ACETAMINOPHEN Inactive SPIRONOLACTONE 25 MG TAB 1 tablet by mouth daily 01/22 SPIRONOLACTONE 25 MG TAB 779844 SPIRONOLACTONE Inactive IBUPROFEN 600 MG TAB 1 po q6-8hr PRN IBUPROFEN 600 MG TAB 760873 IBUPROFEN Inactive FERROUS SULFATE 325 (65 FE) MG TABS 1 tablet by mouth twice yung y FERROUS SULFATE 325 (65 FE) MG TABS 466873 FERROUS SULF ATE Inactive HYDROCODONE-ACETAMINOPHEN 7.5-500 MG [...] PRN Pain 2011 HYDROCODONE-ACETAMINOPHEN 5-325 MG TABS 789563 HYDROCODONE-ACETAMINOPHEN Inactive DOXYCYCLINE HYCLATE 100 MG CAPS Take one (1) tablet by mouth twice a day DOXYCYCLINE HYCLATE 100 MG CAPS 840763 DOXYCYCLINE HYCLATE Inactive PENICILLIN V POTASSIUM 500 MG TAB 1 four times a day 2 PENICILLIN V POTASSIUM 500 MG TAB 954124 PENICILLIN V POTASSIUM Siri ctive PRISTIQ 50 MG [id number] 1 po qd PRISTIQ 50 MG [id number] DESVENLAFAXINE SUCCINATE Inactive TYLENOL/CODEINE #3 300-30 MG TAB 1-2 po q6hr PRN Pain TYLENOL/CODEINE #3 300-30 MG TAB 557169 ACETAMINOPHEN-CODEINE Inact krishna CEPHALEXIN 500 MG TABS Take one by mouth four times daily, morning, noon, early evening and bedtime. CEPHALEXIN 500 MG TABS 028111 CEPHALEXIN Inactive LORTAB 5 5-500 MG TABS 1/2 to 1 tablet by mouth go ry 6 hours as needed for pain LORTAB 5 5-500 MG TABS HYDROCODONE-A CETAMINOPHEN Inactive AMITRIPTYLINE HCL 25 MG TAB 1 tab by mouth daily 60 minutes before bedtime AMITRIPTYLINE HCL 25 MG TAB 468467 AMITRIPTYLINE HCL Inactive AMOXICILLIN 500 MG TABS 2 tabs PO bid x 10 d 7 AMOXICILLIN 500 MG TABS 538492 AMOXICILLIN Inactive IMPLANON 68 MG IMPL IMPLANTED IN LEFT ARM IMPLANON 68 MG IMPL ETONOGESTREL Inactive HYDROCODONE-ACETAMINOPHEN 5-325 MG TABS 1 PO tid PRN pain 5 HYDROCODONE-ACETAMINOPHEN 5-325 MG TABS 114891 HYDROCODONE-ACETAMIN OPHEN Inactive BACTRIM DS 800-160 MG TAB 1 tab by mouth twice daily 2 BACTRIM DS 800-160 MG TAB TRIMETHOPRIM-SULFAMETHOXAZOLE Inac tive CEPHALEXIN 500 MG CAPS 1 PO bid x 7 days CEPHALEXIN 500 MG CAPS 208759 CEPHALEXIN Inactive HYDROCODONE-ACETAMINOPHEN 5-325 MG TABS 1 tab by mouth every 6 hours as needed HYDROCODONE-ACETAMINOPHEN 5-325 MG TABS 805569 HYDROCODONE-ACETAMINOPHEN Inactive PROMETHAZINE-CODEINE 6.25-10 MG/5ML SYRP 1 tsp every 6 hrs prn c ough PROMETHAZINE-CODEINE 6.25-10 MG/5ML SYRP 890728 PROMETH AZINE-CODEINE Inactive IBUPROFEN 800 MG TAB 1 pill three times daily as needed for pain IBUPROFEN 800 MG TAB 253767 IBUPROFEN Inactive KEFLEX 500 MG CAP 1 tab po tid KEFLEX 500 MG CAP 268490 CEPHALEXIN Inactive HYDROCODONE-ACETAMINOPHEN 7.5-325 MG TABS 1 four times a day as needed for pain HYDROCODONE-ACETAMINOPHEN 7.5-325 MG TABS 222147 HYDROCODONE-ACETAMINOPHEN Inactive BACTRIM DS 800-160 MG TABS by mouth twice a day 11/05 BACTRIM DS 800-160 MG TABS SULFAMETHOXAZOLE-TRIMETHOPRIM Inactive IBUPROFEN 800 MG TABS 1 tid prn IBUPROFEN 800 MG TABS 031030 IBUPROFEN Inactive ENDOCET 10-325 MG TABS 1 q 6 hr prn ENDOC ET 10-325 MG TABS 1917915 OXYCODONE-ACETAMINOPHEN Inactive HYDROCODONE-ACETAMINOPHEN 7.5-325 MG TABS 1 by mouth e very 6 hours as needed for pain HYDROCODONE-ACETAMINOPHEN 7.5-325 MG TABS 901422 HYDROCODONE-ACETAMINOPHEN Inactive PERCOCET 7.5-325 MG TABS 1 PO q 8 hrs PRN pain PERCOCET 7.5-325 MG TABS 9730022 OXYCODONE-ACETAMINOPHEN Inactive AMOXICILLIN 875 MG TABS 1 tab by mouth twice daily 201 07/18/07 AMOXICILLIN 875 MG TABS 922422 AMOXICILLIN Inactive KEFLEX 500 MG CAP 1 po tid x 10 days KEFLEX 500 MG CAP 516354 CEPHALEXIN Inactive AMOXICILLIN 875 MG TABS 1 tab by mouth twice daily 201 07/19/27 AMOXICILLIN 875 MG TABS 960811 AMOXICILLIN Inactive AMOXICILLIN 875 MG TABS 1 tab by mouth twice daily 201 08/09/13 AMOXICILLIN 875 MG TABS 401724 AMOXICILLIN Inactive CIPRO 500 MG TAB 1 tablet by mouth twice daily CIPRO 500 MG TAB 763715 CIPROFLOXACIN HCL Inactive BACTRIM DS 800-160 MG TAB 1 tab by mouth twice daily 2 BACTRIM DS 800-160 MG TAB TRIMETHOPRIM-SULFAMETHOXAZOLE Inac tive LEVAQUIN 500 MG TABS 1 PO q day x 7 days LEVAQUIN 500 MG TABS 332869 LEVOFLOXACIN Inactive CLINDAMYCIN HCL 300 MG CAPS 1 po QID x 7 days CLINDAMYCIN HCL 300 MG CAPS 560926 CLINDAMYCIN HCL Inactive Advance Directives Directive Description Start Date PERMISSION TO SHARE Immunizations Vaccine Administration Date Value Standard Alf cription Seasonal influenza vaccine, injectable, containing preservative, for > 3 years old (Afluria, FluLaval, Fluzone, Fluvirin, Fluarix, Agriflu(>= 18 yo)) Fluzone (>3 yrs.) [[id number]] Influenza, seasonal, inject able Seasonal influenza vaccine, injectable, preservative free, for > 3 years old (Afluria, FluLaval, Fluzone, Fluvirin, Fluarix, Agriflu(>= 18 yo)) Fluzone preservative free (>3 yrs.) [[id number]] Influenza, seasonal, injectable, preservative free Seasonal influenza vaccine, injectable, containing preservative, for > 3 years old (Afluria, FluLaval, Fluzone, Fluvirin, Fluarix, Agriflu(>= 18 yo)) Fluzone (>3 yrs.) [[id number]] Influenza, seasonal, inject able Seasonal influenza vaccine, injectable, containing preservative, for > 3 years old (Afluria, FluLaval, Fluzone, Fluvirin, Fluarix, Agriflu(>= 18 yo)) Fluzone (>3 yrs.) [[id number]] Influenza, seasonal, inject able dT (Diphtheria and Tetanus) booster Historical Td(adult) unspecified formulation Vital Signs Date Name Value Unit Range Description blood pressure, diastolic 83 mm[Hg] BP ribeiro [...] ... - Chemistry sodium, serum 140 mmol/L 731-936 5371/02/24 potassium, serum 4.3 mmol/L 3.5-5.2 chloride, serum [...] 4.3-6.0 Lab Report: T3, TOTAL, INSULIN - [employer] ry triiodothyronine, serum 78 ng/dL 76-181 Lab [...] mg/dL Encounters Code Encounter Date Provider Facility CPT-26946 Level 3 Est. Patient 19:34:46 CDT Shola MCGILL [facility] CPT-14142 Level 3 Est. Patient 14:19:37 CDT Abdirahman Rios MD [facility] CPT-76354 Level 3 Est. Patient 14:11:58 CDT Kalpesh goins MD [facility] CPT-52083 Level 3 Est. Patient 16:50:00 CDT Michelle MERCADO [facility] CPT-77279 Level 3 Est. Patient 17:11:32 DROSS SKIMMER Brandie bates MD PhD [facility] CPT-67474 Level 3 Est. Patient 16:31:47 DROSS SKIMMER Shola MCGILL [facility] CPT-37720 Level 3 Est. Patient 17:51:10 DROSS SKIMMER Abhinav Galvan MD [facility] CPT-31164 Level 4 Est. Patient 12:54:56 DROSS SKIMMER Kalpesh goins MD [facility]-74128 Level 4 Est. Patient 12:53:56 DROSS SKIMMER Kalpesh goins MD [facility]-93769 Level 3 Est. Patient 17:56:58 CDT Shola Wright [facility] CPT-69151 Level 3 Est. Patient 14:26:20 CDT Janak butcher [facility] CPT-45696 Level 3 Est. Patient 09:38:41 CDT Shola Thao [facility] CPT-72983 Level 3 Est. Patient 14:45:26 CDT Edilberto tiwari [facility] CPT-91838 Level 3 Est. Patient 10:51:33 CDT [facility] Patient 11:57:55 DROSS SKIMMER Shola Houghsabi [facility] CPT-23739 Level 3 Est. Patient 09:53:33 DROSS SKIMMER Edilberto tiwari [facility] CPT-36631 Level 3 Est. Patient 14:42:54 DROSS SKIMMER Abhinav Galvan MD [facility]-89975 Level 3 Est. Patient 15:10:02 CDT Janak butcher [facility] CPT-33376 Level 3 Est. Patient 15:20:20 CDT Theo dennis MD [facility]-81429 Level 2 Est. Patient 14:08:57 CDT Kalpesh goins MD [facility]-66998 Level 3 Est. Patient 13:56:19 CDT Abdirahman Rios MD [facility] CPT-26111 Level 3 Est. Patient 13:59:37 CDT Abdirahman Rios MD [facility] CPT-96475 Level 2 Est. Patient 14:44:59 CDT Kalpesh goins MD [facility] CPT-82521 Level 3 Est. Patient 06:06:23 CDT Edilberto tiwari DO [facility] CPT-22252 Level 3 Est. Patient 15:23:54 CDT Abdirahman Rios MD [facility] CPT-79563 Level 3 Est. Patient 15:43:49 CDT Abdirahman Rios MD [facility] CPT-48756 Level 3 Est. Patient 12:46:47 DROSS SKIMMER Abdirahman Rios MD [facility] CPT-05387 Level 3 Est. Patient 08:13:35 DROSS SKIMMER Abdirahman Rios MD [facility] CPT-74372 Level 2 Est. Patient 09:36:42 DROSS SKIMMER Abdirahman Rios MD [facility] CPT-14244 Level 3 Est. Patient 10:56:43 CDT Abdirahman Rios MD [facility] CPT-27551 Level 3 Est. Patient 18:24:52 CDT Abdirahman Rios MD [facility] CPT-53222 Level 3 Est. Patient 13:27:22 CDT Abdirahman Rios MD [facility] Procedures Code Procedure Name Date Entry Date Standard Desc ription CPT-07763 Immunization Single Admin 16:41:53 CDT 2013 CPT-42272 Fluzone Quadrivalent Intramuscular Suspe nsion 0.5 ML 16:41:53 CDT CPT-OV Office Visit 16:39:18 CDT CPT-OV Office Visit 16:16:36 CDT CPT-OV Office Visit 15:34:48 CDT CPT-92120 Postop F/U Visit 14:50:12 CDT CPT-06298 Postop F/U Visit 14:41:10 CDT CPT-14184 Venipuncture Draw Fee 11:38:04 DROSS SKIMMER CPT-75704 Postop F/U Visit 19:02:59 DROSS SKIMMER CPT-80133 Postop F/U Visit 12:04:54 DROSS SKIMMER CPT-39663 Administration single or combination vac cine inc oral 15:56:43 CDT CPT-90065 Influenza split virus > age 3 15:56:43 CDT CPT-61807 Hand comp min 3V 14:25:19 CDT CPT-03318 Postop F/U Visit 21:40:51 CDT CPT-74269 Postop F/U Visit 10:58:43 CDT CPT-53543 Administration single or combination vac cine inc oral 12:33:54 DROSS SKIMMER CPT-60579 Influenza Preservative Free split virus >age 3 12:33:54 DROSS SKIMMER CPT-76036 Administration single or combination vac cine inc oral 09:30:51 CDT CPT-33628 Influenza split virus > age 3 09:30:51 CDT CPT-95784 Postop F/U Visit 15:14:53 CDT CPT-34147 Postop F/U Visit 13:50:14 CDT CPT-26330 Postop F/U Visit 13:34:52 CDT CPT-OV Office Visit 16:55:03 CDT CPT-28185 [place] cerv[place] w bx ECC 13:32:50 CDT 10/19 CPT-J1885 Toradol 60 mg (Ketorolac) 15:31:59 CDT 2011 CPT-J1885 Toradol 60 mg (Ketorolac) 15:23:54 CDT 2011 CPT-22795 Visit 11:34:37 DROSS SKIMMER CPT-99816 Visit 10:52:39 DROSS SKIMMER CPT-39892 Visit 10:12:02 DROSS SKIMMER CPT-66748 Visit 11:22:43 DROSS SKIMMER CPT-84819 Visit 11:24:12 DROSS SKIMMER CPT-27654 Visit 10:47:05 DROSS SKIMMER CPT-OV Office Visit 10:26:16 DROSS SKIMMER CPT-OV Office Visit 15:34:31 DROSS SKIMMER CPT-90223 Visit 10:42:08 DROSS SKIMMER CPT-47214 Visit 10:52:45 DROSS SKIMMER CPT-000 Give Appropriate Flu Vaccine 16:56:41 CDT 2 CPT-96911 Administration single or combination vac cine inc oral 10:33:21 CDT CPT-16096 Influenza split virus > age 3 10:33:21 CDT CPT-13028 Visit 13:23:09 CDT CPT-46168 Visit 18:24:52 CDT CPT-80359 Sono OB comp > 14 weeks 12:07:49 CDT 04/07
--- OUTSIDE RECORDS SUMMARY | 2020-01-18 16:47 | XMS REPORT | Clinical Summary ---
Author Author Admin, Jeri Rashid Organization [facility] Address Unknown Phone Allergies, Adverse Reactions, [...] FOR THERAPEUTIC DRUG MONITORING ICD-V58.83 Inactive Good Jluian MD AMENORRHEA ICD-626.0 Inactive Good sierra MD AFTERCARE FLW SURG TEETH ORL CAV&DIGESTV SYS NEC ICD-V58.75 Inactive Good Julian MD ACUTE BRONCHITIS ICD-466.0 Inactive Good Julian MD JAW PAIN ICD-526.9 Inactive Good collier MD DENTAL CARIES ICD-521.00 Inactive Good Matos MD ABSCESS, INNER THIGH ICD-682.6 Inactive Moin Julian MD NEUROPATHY ICD-355.9 Inactive Good sierra MD FH DIABETES ICD-V18.0 Inactive Good Julian MD AFTERCARE FOLLOW SURGERY SKIN&SUBCUT TISSUE NEC ICD-V58.77 Inactive Good Julian MD UPPER RESPIRATORY INFECTION (URI) ICD-465.9 In active Good Julian MD HEADACHE ICD-784.0 Inactive Good clolier MD HAND PAIN, RIGHT ICD-729.5 Inactive Good [...] by mouth twice a day 11/05 SULFAMETHOXAZOLE-TRIMETHOPRIM [id number] No Longer Active Good Julian MD Active IBUPROFEN 800 MG TABS 1 tid prn IBUPROFEN 38231089302 Active Good Julian MD Active ENDOCET 10-325 MG TABS 1 q 6 hr prn OXYCODONE-A CETAMINOPHEN 54594228929 Active Shola MCGILL Active HYDROCODONE-ACETAMINOPHEN 7.5-325 MG TABS 1 four times a day as needed for pain HYDROCODONE-ACETAMINOPHEN 65400900537 No Longer Activ crystal Julian MD Active KEFLEX 500 MG CAP 1 tab po tid CEPHALEXIN 157793 61148 No Longer Active Hira Moser APRN Active IBUPROFEN 800 MG TAB 1 pill three times daily as needed for pain IBUPROFEN 28202538250 No Longer Active Kalpesh Dong MD Active PROMETHAZINE-CODEINE 6.25-10 MG/5ML SYRP 1 tsp every 6 hrs prn c ough PROMETHAZINE-CODEINE 15545873186 No Longer Active Kalpesh Carr Active ALPRAZOLAM 0.5 MG TABS 1 PO bid PRN ALPRAZOLAM 124822 76499 Active Shola MCGILL Active HYDROCODONE-ACETAMINOPHEN 5-325 MG TABS 1 tab by mouth every 6 hours as needed HYDROCODONE-ACETAMINOPHEN 02344361041 No Longer Activ e Shola MCGILL Active CEPHALEXIN 500 MG CAPS 1 PO bid x 7 days CEPHAL EXIN 37444076394 No Longer Active Shola MCGILL Active BACTRIM DS 800-160 MG TAB 1 tab by mouth twice daily 2 TRIMETHOPRIM-SULFAMETHOXAZOLE 81454508451 No Longer Active Kalpesh Dong MD Active HYDROCODONE-ACETAMINOPHEN 5-325 MG TABS 1 PO tid PRN pain 5 HYDROCODONE-ACETAMINOPHEN 85433311191 No Longer Active Abhinav Galvan MD Active IMPLANON 68 MG IMPL IMPLANTED IN LEFT ARM ETONO GESTREL 90702555102 No Longer Active Jillsiri Frazell HEADER SET UP OPERATOR Active AMOXICILLIN 500 MG TABS 2 tabs PO bid x 10 d AM OXICILLIN 19102028813 No Longer Active Kalpesh Dong MD Active LEVAQUIN 500 MG TABS 1 PO q day x 7 days LEVOFL OXACIN 32930832427 No Longer Active Shola MCGILL Active PROAIR HFA 108 (90 BASE) MCG/ACT AERS 2 puff q 4-6 hrs PRN ALBUTEROL SULFATE 85509790270 Active Shola MCGILL Acti ve FIORICET 50-325-40 MG TABS 2 PO q 8 hrs PRN FOSTER [id number] 12947477658 Active Abdirahman Rios MD Active AMITRIPTYLINE HCL 25 MG TAB 1 tab by mouth daily 60 minutes before bedtime AMITRIPTYLINE HCL 28258312376 No Longer Active Shola MCGILL Active LORTAB 5 5-500 MG TABS 1/2 to 1 tablet by mouth go ry 6 hours as needed for pain HYDROCODONE-ACETAMINOPHEN 90627599487 No Longer Active Shola MCGILL Active CEPHALEXIN 500 MG TABS Take one by mouth four times daily, morning, noon, early evening and bedtime. CEPHALEXIN 54468355106 No Long er Active Hira Moser HEADER SET UP OPERATOR Active TYLENOL/CODEINE #3 300-30 MG TAB 1-2 po q6hr PRN Pain ACETAMINOPHEN-CODEINE 71818270471 No Longer Active Edilberto Marino DO Active PRISTIQ 50 MG [id number] 1 po qd DESVENLAFAXI NE SUCCINATE 41891920143 No Longer Active Edilberto Marino DO Active PENICILLIN V POTASSIUM 500 MG TAB 1 four times a day 2 PENICILLIN V POTASSIUM 65205474870 No Longer Active Edilberto Marino DO Active DOXYCYCLINE HYCLATE 100 MG CAPS Take one (1) tablet by mouth twice a day DOXYCYCLINE HYCLATE 32839334545 No Longer Active Ronnie Galvan MD Active HYDROCODONE-ACETAMINOPHEN 5-325 MG TABS 1 po q 6hr PRN Pain 2011 HYDROCODONE-ACETAMINOPHEN 43872568444 No Longer Active Patri jona Perez RN Active BACTRIM DS 800-160 MG TAB 1 tab by mouth twice daily 2 TRIMETHOPRIM-SULFAMETHOXAZOLE 72499819254 No Longer Active Kalpesh Dong MD Active LORTAB 5 5-500 MG TABS 1/2 to 1 tablet by mouth go ry 4 hours as needed for pain HYDROCODONE-ACETAMINOPHEN 01909347091 No Longer Active Kalpesh Dong MD Active GENERESS FE 0.8-25 MG-MCG CHEW Take one by mouth daily NORETHIN-ETH ESTRADIOL-FE 94589790680 No Longer Active Kalpesh Dong MD Active HYDROCODONE-ACETAMINOPHEN 7.5-500 MG TABS 1-2 every 4 hours as needed HYDROCODONE-ACETAMINOPHEN 22790114455 No Longer Activ e Kalpesh Dong MD Active FERROUS SULFATE 325 (65 FE) MG TABS 1 tablet by mouth twice yung y FERROUS SULFATE 96082499563 No Longer Active Kalpesh Dong MD Active IBUPROFEN 600 MG TAB 1 po q6-8hr PRN IBUPROFEN 74589808173 No Longer Active Kalpesh Dong MD Active SPIRONOLACTONE 25 MG TAB 1 tablet by mouth daily 01/22 SPIRONOLACTONE 00330437502 No Longer Active Kalpesh Dong MD Acti ve HYDROCODONE-ACETAMINOPHEN 7.5-325 MG TABS 1 po QID PRN Pain 2011 HYDROCODONE-ACETAMINOPHEN 77929068935 No Longer Active Kalpesh Dong MD Active CLINDAMYCIN HCL 300 MG CAPS 1 po q6hr x 7 days CLINDAMYCIN HCL 85728639968 No Longer Active Edilberto Marino DO Active PREDNISONE 20 MG TAB 2 tabs daily for 4 days, 1 t ab daily for 4 days, 1/2 tab daily for 4 days PREDNISONE 86763316798 No Longer Active Edilberto Marino DO Active PERCOCET 5-325 MG TABS 1 tablet by mouth every 6 hours as ne eded for pain OXYCODONE-ACETAMINOPHEN 90181455647 No Longer Active Abdirahman Rios MD Active VITAMINS TABS Take one by mouth daily MV & MIN W/FE-FA TABS 03330207400 No Longer Active Abdirahman Rios MD Active LUIS 3-0.02 MG TABS 1 tablet by mouth daily as directed DROSPIRENONE-ETHINYL ESTRADIOL 17987004307 No Longer Active Abdirahman Rios MD Active LORATADINE 10 MG TABS 1 tablet by mouth daily L ORATADINE 24904421372 No Longer Active Kalpesh Dong MD Active HYDROCODONE-ACETAMINOPHEN 5-325 MG TABS 1 po q 6hr PRN Pain 2010 HYDROCODONE-ACETAMINOPHEN 22671930099 No Longer Active Edilberto Marino DO Active BACTRIM DS 800-160 MG TAB 1 tab by mouth twice daily 2 TRIMETHOPRIM-SULFAMETHOXAZOLE 60376689716 No Longer Active Abdirahman Rios MD Active 28-0.8 MG TABS Take one by mouth daily 09/20 VIT-FE FUMARATE-FA 67618741598 No Longer Active Abdirahman Rios MD Active CIPRO 500 MG TAB 1 tablet by mouth twice daily CIPROFLOXACIN HCL 49421490613 No Longer Active Abdirahman Rios MD Active BENADRYL 25 MG CAP 1 po q8hr PRN Congestion DIPHENHYDRAMINE HCL 20669660334 No Longer Active Abdirahman Rios MD Active ZOLOFT 50 MG TAB 1 po qd SERTRALINE HCL 523619 55013 No Longer Active Abdirahman Rios MD Active AMOXICILLIN 875 MG TABS 1 tab by mouth twice daily 201 08/09/13 AMOXICILLIN 68471787435 No Longer Active Abdirahman Rios MD Activ e AMOXICILLIN 875 MG TABS 1 tab by mouth twice daily 201 07/19/27 AMOXICILLIN 79094437921 No Longer Active Abdirahman Rios MD Activ e BACTRIM DS 800-160 MG TAB 2 tab by mouth twice daily 2 TRIMETHOPRIM-SULFAMETHOXAZOLE 18138787195 No Longer Active Abdirahman Rios MD Active KEFLEX 500 MG CAP 1 po tid x 10 days CEPHALEXIN 49932588838 No Longer Active Abdirahman Rios MD Active AMOXICILLIN 875 MG TABS 1 tab by mouth twice daily 201 07/18/07 AMOXICILLIN 69048592667 No Longer Active Abdirahman Rios MD Activ e VITAMINS TABS Take one by mouth daily VITAMINS TABS MV & MIN W/FE-FA TABS Inactive AMITRIPTYLINE HCL 25 MG TAB 1 tab by mouth daily 60 minutes before bedtime AMITRIPTYLINE HCL 25 MG TAB 305629 AMITRIPTYLINE HCL Inactive BACTRIM DS 800-160 MG TAB 1 tab by mouth twice daily 2 BACTRIM DS 800-160 MG TAB TRIMETHOPRIM-SULFAMETHOXAZOLE Inac tive BACTRIM DS 800-160 MG TABS by mouth twice a day 11/05 BACTRIM DS 800-160 MG TABS SULFAMETHOXAZOLE-TRIMETHOPRIM Inactive BACTRIM DS 800-160 MG TAB 1 tab by mouth twice daily 2 BACTRIM DS 800-160 MG TAB TRIMETHOPRIM-SULFAMETHOXAZOLE Inac tive BACTRIM DS 800-160 MG TAB 2 tab by mouth twice daily 2 BACTRIM DS 800-160 MG TAB TRIMETHOPRIM-SULFAMETHOXAZOLE Inactive BACTRIM DS 800-160 MG TAB 1 tab by mouth twice daily 2 BACTRIM DS 800-160 MG TAB TRIMETHOPRIM-SULFAMETHOXAZOLE Inac tive BENADRYL 25 MG CAP 1 po q8hr PRN Congestion BENADRYL 25 MG CAP 6973795 DIPHENHYDRAMINE HCL Inactive CIPRO 500 MG TAB 1 tablet by mouth twice daily CIPRO 500 MG TAB 343380 CIPROFLOXACIN HCL Inactive DOXYCYCLINE HYCLATE 100 MG CAPS Take one (1) tablet by mouth twice a day DOXYCYCLINE HYCLATE 100 MG CAPS 930889 DOXYCYCLINE HYCLATE Inactive FERROUS SULFATE 325 (65 FE) MG TABS 1 tablet by mouth twice yung y FERROUS SULFATE 325 (65 FE) MG TABS 012257 FERROUS SULF ATE Inactive IBUPROFEN 600 MG TAB 1 po q6-8hr PRN IBUPROFEN 600 MG TAB 637267 IBUPROFEN Inactive IBUPROFEN 800 MG TAB 1 pill three times daily as needed for pain IBUPROFEN 800 MG TAB 860967 IBUPROFEN Inactive KEFLEX 500 MG CAP 1 tab po tid KEFLEX 500 MG CAP 626322 CEPHALEXIN Inactive KEFLEX 500 MG CAP 1 po tid x 10 days KEFLEX 500 MG CAP 134779 CEPHALEXIN Inactive PENICILLIN V POTASSIUM 500 MG TAB 1 four times a day 2 PENICILLIN V POTASSIUM 500 MG TAB 858786 PENICILLIN V POTASSIUM Siri ctive PERCOCET 5-325 MG TABS 1 tablet by mouth every 6 hours as ne eded for pain PERCOCET 5-325 MG TABS 4284102 OXYCODONE-ACETAMIN OPHEN Inactive PREDNISONE 20 MG TAB 2 tabs daily for 4 days, 1 t ab daily for 4 days, 1/2 tab daily for 4 days PREDNISONE 20 MG TAB 545380 PREDNISON E Inactive PROMETHAZINE-CODEINE 6.25-10 MG/5ML SYRP 1 tsp every 6 hrs prn c ough PROMETHAZINE-CODEINE 6.25-10 MG/5ML SYRP 468518 PROMETH AZINE-CODEINE Inactive SPIRONOLACTONE 25 MG TAB 1 tablet by mouth daily 01/22 SPIRONOLACTONE 25 MG TAB 617112 SPIRONOLACTONE Inactive TYLENOL/CODEINE #3 300-30 MG TAB 1-2 po q6hr PRN Pain TYLENOL/CODEINE #3 300-30 MG TAB 511415 ACETAMINOPHEN-CODEINE Inact krishna ZOLOFT 50 MG TAB 1 po qd ZOLOFT 50 MG TAB 3129 41 SERTRALINE HCL Inactive CEPHALEXIN 500 MG CAPS 1 PO bid x 7 days CEPHALEXIN 500 MG CAPS 160366 CEPHALEXIN Inactive CEPHALEXIN 500 MG TABS Take one by mouth four times daily, morning, noon, early evening and bedtime. CEPHALEXIN 500 MG TABS 205266 CEPHALEXIN Inactive CLINDAMYCIN HCL 300 MG CAPS 1 po q6hr x 7 days CLINDAMYCIN HCL 300 MG CAPS 371838 CLINDAMYCIN HCL Inactive LORATADINE 10 MG TABS 1 tablet by mouth daily LORATADINE 10 MG TABS 926047 LORATADINE Inactive LORTAB 5 5-500 MG TABS 1/2 to 1 tablet by mouth go ry 4 hours as needed for pain LORTAB 5 5-500 MG TABS HYDROCODONE-A CETAMINOPHEN Inactive LORTAB 5 5-500 MG TABS 1/2 to 1 tablet by mouth go ry 6 hours as needed for pain LORTAB 5 5-500 MG TABS HYDROCODONE-A CETAMINOPHEN Inactive HYDROCODONE-ACETAMINOPHEN 7.5-500 MG TABS 1-2 every 4 hours as needed HYDROCODONE-ACETAMINOPHEN 7.5-500 MG TABS 258229 HYDROCODONE-ACETAMINOPHEN Inactive AMOXICILLIN 500 MG TABS 2 tabs PO bid x 10 d AMOXICILLIN 500 MG TABS 916373 AMOXICILLIN Inactive LEVAQUIN 500 MG TABS 1 PO q day x 7 days LEVAQUIN 500 MG TABS 621343 LEVOFLOXACIN Inactive AMOXICILLIN 875 MG TABS 1 tab by mouth twice daily 201 07/19/27 AMOXICILLIN 875 MG TABS 579613 AMOXICILLIN Inactive AMOXICILLIN 875 MG TABS 1 tab by mouth twice daily 201 08/09/13 AMOXICILLIN 875 MG TABS 630001 AMOXICILLIN Inactive AMOXICILLIN 875 MG TABS 1 tab by mouth twice daily 201 07/18/07 AMOXICILLIN 875 MG TABS 978920 AMOXICILLIN Inactive HYDROCODONE-ACETAMINOPHEN 5-325 MG TABS 1 tab by mouth every 6 hours as needed HYDROCODONE-ACETAMINOPHEN 5-325 MG TABS 737941 HYDROCODONE-ACETAMINOPHEN Inactive HYDROCODONE-ACETAMINOPHEN 5-325 MG TABS 1 PO tid PRN pain 5 HYDROCODONE-ACETAMINOPHEN 5-325 MG TABS 937396 HYDROCODONE-ACETAMIN OPHEN Inactive HYDROCODONE-ACETAMINOPHEN 5-325 MG TABS 1 po q 6hr PRN Pain 2011 HYDROCODONE-ACETAMINOPHEN 5-325 MG TABS 056027 HYDROCODONE-ACETAMINOPHEN Inactive HYDROCODONE-ACETAMINOPHEN 5-325 MG TABS 1 po q 6hr PRN Pain 2010 HYDROCODONE-ACETAMINOPHEN 5-325 MG TABS 854140 HYDROCODONE-ACETAMINOPHEN Inactive HYDROCODONE-ACETAMINOPHEN 7.5-325 MG TABS 1 po QID PRN Pain 2011 HYDROCODONE-ACETAMINOPHEN 7.5-325 MG TABS 008355 HYDROCODONE-ACETAMINOPHEN Inactive HYDROCODONE-ACETAMINOPHEN 7.5-325 MG TABS 1 four times a day as needed for pain HYDROCODONE-ACETAMINOPHEN 7.5-325 MG TABS 969316 HYDROCODONE-ACETAMINOPHEN Inactive 28-0.8 MG TABS Take one by mouth daily 09/20 28-0.8 MG TABS VIT-FE FUMARATE-FA Inactive LUIS 3-0.02 MG TABS 1 tablet by mouth daily as directed LUIS 3-0.02 MG TABS DROSPIRENONE-ETHINYL ESTRADIOL Inactive IMPLANON 68 MG IMPL IMPLANTED IN LEFT ARM IMPLANON 68 MG IMPL ETONOGESTREL Inactive PRISTIQ 50 MG [id number] 1 po qd PRISTIQ 50 MG [id number] DESVENLAFAXINE SUCCINATE Inactive GENERESS FE 0.8-25 MG-MCG CHEW Take one by mouth daily GENERESS FE 0.8-25 MG-MCG CHEW NORETHIN-ETH ESTRADIOL-FE Inactive Advance Directives Directive Description Start Date PERMISSION TO SHARE Immunizations Vaccine Administration Date Value Standard Alf cription Seasonal influenza vaccine, injectable, containing preservative, for > 3 years old (Afluria, FluLaval, Fluzone, Fluvirin, Fluarix, Agriflu(>= 18 yo)) Fluzone (>3 yrs.) [[id number]] Influenza, seasonal, inject able Seasonal influenza vaccine, injectable, preservative free, for > 3 years old (Afluria, FluLaval, Fluzone, Fluvirin, Fluarix, Agriflu(>= 18 yo)) Fluzone preservative free (>3 yrs.) [[id number]] Influenza, seasonal, injectable, preservative free Seasonal influenza vaccine, injectable, containing preservative, for > 3 years old (Afluria, FluLaval, Fluzone, Fluvirin, Fluarix, Agriflu(>= 18 yo)) Fluzone (>3 yrs.) [[id number]] Influenza, seasonal, inject able Seasonal influenza vaccine, injectable, containing preservative, for > 3 years old (Afluria, FluLaval, Fluzone, Fluvirin, Fluarix, Agriflu(>= 18 yo)) Fluzone (>3 yrs.) [[id number]] Influenza, seasonal, inject able dT (Diphtheria and [...] mg/dL Chart Maintenance: Outside labs entered on [email or web address] - Hematology leukocyte count, blood 8.3 10*3/mm3 erythrocyte (RBC) count 5.2 10*6/mm3 hemoglobin, blood 14.2 g/dL hematocrit, blood 42.6 % mean corpuscular volume, RBC 82.4 fL mean corpuscular hemoglobin, RBC 27.5 pg red blood cell distribution width 12.9 % platelet count 316 10*3/mm3 Lab Report: CBC W/DIFF, Comp. Metabolic Panel, Thyroid Stimulating [place] ... - Chemistry sodium, serum 140 mmol/L [phone]/02/24 potassium, serum 4.3 mmol/L 3.5-5.2 chloride, serum [...] 4.3-6.0 Lab Report: T3, TOTAL, INSULIN - [employer] Supervisor ry triiodothyronine, serum 78 ng/dL 76-181 Lab [...] mg/dL Encounters Code Encounter Date Provider Facility CPT-12076 Level 3 Est. Patient 14:11:58 CDT Kalpesh goins MD [facility] CPT-32923 Level 3 Est. Patient 16:50:00 CDT Michelle MERCADO [facility] CPT-75591 Level 3 Est. Patient 17:11:32 [place] Brandie bates MD PhD [facility] CPT-28455 Level 3 Est. Patient 16:31:47 [place] Shola MCGILL [facility] CPT-27634 Level 3 Est. Patient 17:51:10 [place] Abhinav Galvan MD [facility] CPT-82260 Level 4 Est. Patient 12:54:56 [place] Kalpesh goins MD [facility] CPT-93157 Level 4 Est. Patient 12:53:56 [place] Kalpesh goins MD [facility] CPT-69954 Level 3 Est. Patient 17:56:58 CDT Shola MCGILL [facility] CPT-99373 Level 3 Est. Patient 14:26:20 CDT Janak butcher [facility] CPT-58685 Level 3 Est. Patient 09:38:41 CDT Shola Wright [facility] CPT-67406 Level 3 Est. Patient 14:45:26 CDT Edilberto tiwari [facility] CPT-95002 Level 3 Est. Patient 10:51:33 CDT Hira muniz [facility] CPT-50527 Level 3 Est. Patient 11:57:55 [place] Shola Thao Adriana [facility] CPT-36734 Level 3 Est. Patient 09:53:33 [place] Edilberto tiwari [facility] CPT-31508 Level 3 Est. Patient 14:42:54 [place] Abhinav Galvan MD [facility] CPT-44688 Level 3 Est. Patient 15:10:02 CDT Janak butcher [facility] CPT-98607 Level 3 Est. Patient 15:20:20 CDT Theo dennis MD [facility] CPT-62573 Level 2 Est. Patient 14:08:57 CDT Kalpesh goins MD [facility] CPT-78055 Level 3 Est. Patient 13:56:19 CDT Abdirahman Rios MD [facility] CPT-33196 Level 3 Est. Patient 13:59:37 CDT Abdirahman Rios MD [facility] CPT-71656 Level 2 Est. Patient 14:44:59 CDT Kalpesh goins MD [facility]-00407 Level 3 Est. Patient 06:06:23 CDT Edilberto tiwari [facility] CPT-18263 Level 3 Est. Patient 15:23:54 CDT Abdirahman Rios MD [facility] CPT-06883 Level 3 Est. Patient 15:43:49 CDT Abdirahman Rios MD [facility] CPT-95184 Level 3 Est. Patient 12:46:47 [place] Abdirahman Rios MD [facility] CPT-49904 Level 3 Est. Patient 08:13:35 [place] Abdirahman Rios MD [facility] CPT-32587 Level 2 Est. Patient 09:36:42 [place] Abdirahman Rios MD [facility] CPT-60350 Level 3 Est. Patient 10:56:43 CDT Abdirahman Rios MD [facility] CPT-19126 Level 3 Est. Patient 18:24:52 CDT Abdirahman Rios MD [facility] CPT-23055 Level 3 Est. Patient 13:27:22 CDT Abdirahman Rios MD [facility] Procedures Code Procedure Name Date Entry Date Standard Desc ription CPT-OV Office Visit 15:34:48 CDT CPT-36985 Postop F/U Visit 14:50:12 CDT CPT-13339 Postop F/U Visit 14:41:10 CDT CPT-36491 Venipuncture Draw Fee 11:38:04 [place] CPT-26272 Postop F/U Visit 19:02:59 [place]TM[place] CPT-62168 Postop F/U Visit 12:04:54 [place] CPT-12895 Administration single or combination vac cine inc oral 15:56:43 CDT CPT-00034 Influenza split virus > age 3 15:56:43 CDT CPT-42328 Hand comp min 3V 14:25:19 CDT CPT-09986 Postop F/U Visit 21:40:51 CDT CPT-98593 Postop F/U Visit 10:58:43 CDT CPT-34943 Administration single or combination vac cine inc oral 12:33:54 [place]TM[place] CPT-98865 Influenza Preservative Free split virus >age 3 12:33:54 [place]TM[place] CPT-87793 Administration single or combination vac cine inc oral 09:30:51 CDT CPT-13026 Influenza split virus > age 3 09:30:51 CDT CPT-14191 Postop F/U Visit 15:14:53 CDT CPT-62848 Postop F/U Visit 13:50:14 CDT CPT-16435 Postop F/U Visit 13:34:52 CDT CPT-OV Office Visit 16:55:03 CDT CPT-64979 [place] of cervix w bx ECC 13:32:50 CDT 10/19 CPT-J1885 Toradol 60 mg (Ketorolac) 15:31:59 CDT 2011 CPT-J1885 Toradol 60 mg (Ketorolac) 15:23:54 CDT 2011 CPT-91329 Visit 11:34:37 STUNTMAN CPT-75394 Visit 10:52:39 STUNTMAN CPT-67310 Visit 10:12:02 [place]TM[place] CPT-25312 Visit 11:22:43 [place]TMAN CPT-31586 Visit 11:24:12 [place] CPT-21866 Visit 10:47:05 [place] CPT-OV Office Visit 10:26:16 [place] CPT-OV Office Visit 15:34:31 [place] CPT-85608 Visit 10:42:08 [place] CPT-56495 Visit 10:52:45 [place] CPT-000 Give Appropriate Flu Vaccine 16:56:41 CDT 2 CPT-02436 Administration single or combination vac cine inc oral 10:33:21 CDT CPT-21442 Influenza split virus > age 3 10:33:21 CDT CPT-73354 Visit 13:23:09 CDT CPT-89579 Visit 18:24:52 CDT CPT-91925 Sono OB comp > 14 weeks 12:07:49 CDT 04/07
--- OUTSIDE RECORDS SUMMARY | 2020-01-18 16:47 | XMS REPORT | Clinical Summary ---
Author Author Admin, Jeri Rashid Organization [facility] Address Unknown Phone Allergies, Adverse Reactions, Alerts [...] by mouth twice a day 11/05 SULFAMETHOXAZOLE-TRIMETHOPRIM [id number] No Longer Active Good Julian MD Active IBUPROFEN 800 MG TABS 1 tid prn IBUPROFEN [id number] Active Good Julian MD Active ENDOCET 10-325 MG TABS 1 q 6 hr prn OXYCODONE-A CETAMINOPHEN 67939443686 Active Shola MCGILL Active HYDROCODONE-ACETAMINOPHEN 7.5-325 MG TABS 1 four times a day as needed for pain HYDROCODONE-ACETAMINOPHEN 84103347249 No Longer Activ crystal Julian MD Active KEFLEX 500 MG CAP 1 tab po tid CEPHALEXIN 386881 08201 No Longer Active Hira Moser APRN Active IBUPROFEN 800 MG TAB 1 pill three times daily as needed for pain IBUPROFEN 98314099914 No Longer Active Kalpesh Dong MD Active PROMETHAZINE-CODEINE 6.25-10 MG/5ML SYRP 1 tsp every 6 hrs prn c ough PROMETHAZINE-CODEINE 34738086944 No Longer Active Kalpesh Carr Active ALPRAZOLAM 0.5 MG TABS 1 PO bid PRN ALPRAZOLAM 071284 54693 Active Shola MCGILL Active HYDROCODONE-ACETAMINOPHEN 5-325 MG TABS 1 tab by mouth every 6 hours as needed HYDROCODONE-ACETAMINOPHEN 20972465634 No Longer Activ e Shola MCGILL Active CEPHALEXIN 500 MG CAPS 1 PO bid x 7 days CEPHAL EXIN 08899307016 No Longer Active Shola MCGILL Active BACTRIM DS 800-160 MG TAB 1 tab by mouth twice daily 2 TRIMETHOPRIM-SULFAMETHOXAZOLE 76052643488 No Longer Active Kalpesh Dong MD Active HYDROCODONE-ACETAMINOPHEN 5-325 MG TABS 1 PO tid PRN pain 5 HYDROCODONE-ACETAMINOPHEN 74841747387 No Longer Active Abhinav Galvan MD Active IMPLANON 68 MG IMPL IMPLANTED IN LEFT ARM ETONO GESTREL 00154438082 No Longer Active 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 MARKER MACHINE ATTENDANT Active AMOXICILLIN 500 MG TABS 2 tabs PO bid x 10 d AM OXICILLIN 13578820040 No Longer Active Kalpesh Dong MD Active LEVAQUIN 500 MG TABS 1 PO q day x 7 days LEVOFL OXACIN 84947097628 No Longer Active Shola MCGILL Active PROAIR HFA 108 (90 BASE) MCG/ACT AERS 2 puff q 4-6 hrs PRN ALBUTEROL SULFATE 57123356898 Active Shola MCGILL Acti ve FIORICET 50-325-40 MG TABS 2 PO q 8 hrs PRN FOSTER [id number] 90277147862 Active Abdirahman Rios MD Active AMITRIPTYLINE HCL 25 MG TAB 1 tab by mouth daily 60 minutes before bedtime AMITRIPTYLINE HCL 72830922787 No Longer Active Shola MCGILL Active LORTAB 5 5-500 MG TABS 1/2 to 1 tablet by mouth go ry 6 hours as needed for pain HYDROCODONE-ACETAMINOPHEN 89988207852 No Longer Active Shola MCGILL Active CEPHALEXIN 500 MG TABS Take one by mouth four times daily, morning, noon, early evening and bedtime. CEPHALEXIN 96079083121 No Long er Active Hira Moser MARKER MACHINE ATTENDANT Active TYLENOL/CODEINE #3 300-30 MG TAB 1-2 po q6hr PRN Pain ACETAMINOPHEN-CODEINE 52633065077 No Longer Active Edilberto Marino DO Active PRISTIQ 50 MG [id number] 1 po qd DESVENLAFAXI NE SUCCINATE 96589568375 No Longer Active Edilberto Marino DO Active PENICILLIN V POTASSIUM 500 MG TAB 1 four times a day 2 PENICILLIN V POTASSIUM 97657471084 No Longer Active Edilberto Marino DO Active DOXYCYCLINE HYCLATE 100 MG CAPS Take one (1) tablet by mouth twice a day DOXYCYCLINE HYCLATE 25383391683 No Longer Active Ronnie Galvan MD Active HYDROCODONE-ACETAMINOPHEN 5-325 MG TABS 1 po q 6hr PRN Pain 2011 HYDROCODONE-ACETAMINOPHEN 28662449846 No Longer Active Patri joan Perez RN Active BACTRIM DS 800-160 MG TAB 1 tab by mouth twice daily 2 TRIMETHOPRIM-SULFAMETHOXAZOLE 58307848046 No Longer Active Kalpesh Dong MD Active LORTAB 5 5-500 MG TABS 1/2 to 1 tablet by mouth go ry 4 hours as needed for pain HYDROCODONE-ACETAMINOPHEN 41702507989 No Longer Active Kalpesh Dong MD Active GENERESS FE 0.8-25 MG-MCG CHEW Take one by mouth daily NORETHIN-ETH ESTRADIOL-FE 76393186878 No Longer Active Kalpesh Dong MD Active HYDROCODONE-ACETAMINOPHEN 7.5-500 MG TABS 1-2 every 4 hours as needed HYDROCODONE-ACETAMINOPHEN 55725336934 No Longer Activ e Kalpesh Dong MD Active FERROUS SULFATE 325 (65 FE) MG TABS 1 tablet by mouth twice yung y FERROUS SULFATE 68615341166 No Longer Active Kalpesh Dong MD Active IBUPROFEN 600 MG TAB 1 po q6-8hr PRN IBUPROFEN 64480720502 No Longer Active Kalpesh Dong MD Active SPIRONOLACTONE 25 MG TAB 1 tablet by mouth daily 01/22 SPIRONOLACTONE 63633559735 No Longer Active Kalpesh Dong MD Acti ve HYDROCODONE-ACETAMINOPHEN 7.5-325 MG TABS 1 po QID PRN Pain 2011 HYDROCODONE-ACETAMINOPHEN 57150566236 No Longer Active Kalpesh Dong MD Active CLINDAMYCIN HCL 300 MG CAPS 1 po q6hr x 7 days CLINDAMYCIN HCL 12959265407 No Longer Active Edilberto Marino DO Active PREDNISONE 20 MG TAB 2 tabs daily for 4 days, 1 t ab daily for 4 days, 1/2 tab daily for 4 days PREDNISONE 27940909191 No Longer Active Edilberto Marino DO Active PERCOCET 5-325 MG TABS 1 tablet by mouth every 6 hours as ne eded for pain OXYCODONE-ACETAMINOPHEN 34562295812 No Longer Active Abdirahman Rios MD Active VITAMINS TABS Take one by mouth daily MV & MIN W/FE-FA TABS 47847148708 No Longer Active Abdirahman Rios MD Active LUIS 3-0.02 MG TABS 1 tablet by mouth daily as directed DROSPIRENONE-ETHINYL ESTRADIOL 11969242641 No Longer Active Abdirahman Rios MD Active LORATADINE 10 MG TABS 1 tablet by mouth daily L ORATADINE 52185073980 No Longer Active Kalpesh Dong MD Active HYDROCODONE-ACETAMINOPHEN 5-325 MG TABS 1 po q 6hr PRN Pain 2010 HYDROCODONE-ACETAMINOPHEN 95455510712 No Longer Active Edilberto Marino DO Active BACTRIM DS 800-160 MG TAB 1 tab by mouth twice daily 2 TRIMETHOPRIM-SULFAMETHOXAZOLE 05143070387 No Longer Active Abdirahman Rios MD Active 28-0.8 MG TABS Take one by mouth daily 09/20 VIT-FE FUMARATE-FA 42534651256 No Longer Active Abdirahman Rios MD Active CIPRO 500 MG TAB 1 tablet by mouth twice daily CIPROFLOXACIN HCL 03674319862 No Longer Active Abdirahman Rios MD Active BENADRYL 25 MG CAP 1 po q8hr PRN Congestion DIPHENHYDRAMINE HCL 15301006502 No Longer Active Abdirahman Rios MD Active ZOLOFT 50 MG TAB 1 po qd SERTRALINE HCL 010091 10769 No Longer Active Abdirahman Rios MD Active AMOXICILLIN 875 MG TABS 1 tab by mouth twice daily 201 08/09/13 AMOXICILLIN 36718438710 No Longer Active Abdirahman Rios MD Activ e AMOXICILLIN 875 MG TABS 1 tab by mouth twice daily 201 07/19/27 AMOXICILLIN 22854630304 No Longer Active Abdirahman Rios MD Activ e BACTRIM DS 800-160 MG TAB 2 tab by mouth twice daily 2 TRIMETHOPRIM-SULFAMETHOXAZOLE 63757271509 No Longer Active Abdirahman Rios MD Active KEFLEX 500 MG CAP 1 po tid x 10 days CEPHALEXIN 49236637533 No Longer Active Abdirahman Rios MD Active AMOXICILLIN 875 MG TABS 1 tab by mouth twice daily 201 07/18/07 AMOXICILLIN 83828346114 No Longer Active Abdirahman Rios MD Activ e BACTRIM DS 800-160 MG TAB 2 tab by mouth twice daily 2 BACTRIM DS 800-160 MG TAB TRIMETHOPRIM-SULFAMETHOXAZOLE Inactive ZOLOFT 50 MG TAB 1 po qd ZOLOFT 50 MG TAB 3129 41 SERTRALINE HCL Inactive BENADRYL 25 MG CAP 1 po q8hr PRN Congestion BENADRYL 25 MG CAP 7206564 DIPHENHYDRAMINE HCL Inactive 28-0.8 MG TABS Take one by mouth daily 09/20 28-0.8 MG TABS VIT-FE FUMARATE-FA Inactive HYDROCODONE-ACETAMINOPHEN 5-325 MG TABS 1 po q 6hr PRN Pain 2010 HYDROCODONE-ACETAMINOPHEN 5-325 MG TABS 748312 HYDROCODONE-ACETAMINOPHEN Inactive LORATADINE 10 MG TABS 1 tablet by mouth daily LORATADINE 10 MG TABS 914719 LORATADINE Inactive LUIS 3-0.02 MG TABS 1 tablet by mouth daily as directed LUIS 3-0.02 MG TABS DROSPIRENONE-ETHINYL ESTRADIOL Inactive VITAMINS TABS Take one by mouth daily VITAMINS TABS MV & MIN W/FE-FA TABS Inactive PERCOCET 5-325 MG TABS 1 tablet by mouth every 6 hours as ne eded for pain PERCOCET 5-325 MG TABS 7751402 OXYCODONE-ACETAMIN OPHEN Inactive PREDNISONE 20 MG TAB 2 tabs daily for 4 days, 1 t ab daily for 4 days, 1/2 tab daily for 4 days PREDNISONE 20 MG TAB 452054 PREDNISON E Inactive CLINDAMYCIN HCL 300 MG CAPS 1 po q6hr x 7 days CLINDAMYCIN HCL 300 MG CAPS 380911 CLINDAMYCIN HCL Inactive HYDROCODONE-ACETAMINOPHEN 7.5-325 MG TABS 1 po QID PRN Pain 2011 HYDROCODONE-ACETAMINOPHEN 7.5-325 MG TABS 252679 HYDROCODONE-ACETAMINOPHEN Inactive SPIRONOLACTONE 25 MG TAB 1 tablet by mouth daily 01/22 SPIRONOLACTONE 25 MG TAB 877496 SPIRONOLACTONE Inactive IBUPROFEN 600 MG TAB 1 po q6-8hr PRN IBUPROFEN 600 MG TAB 336087 IBUPROFEN Inactive FERROUS SULFATE 325 (65 FE) MG TABS 1 tablet by mouth twice yung y FERROUS SULFATE 325 (65 FE) MG TABS 976903 FERROUS SULF ATE Inactive HYDROCODONE-ACETAMINOPHEN 7.5-500 MG TABS 1-2 every 4 hours as needed HYDROCODONE-ACETAMINOPHEN 7.5-500 MG TABS 772631 HYDROCODONE-ACETAMINOPHEN Inactive GENERESS FE 0.8-25 MG-MCG CHEW [...] PRN Pain 2011 HYDROCODONE-ACETAMINOPHEN 5-325 MG TABS 968716 HYDROCODONE-ACETAMINOPHEN Inactive DOXYCYCLINE HYCLATE 100 MG CAPS Take one (1) tablet by mouth twice a day DOXYCYCLINE HYCLATE 100 MG CAPS 296765 DOXYCYCLINE HYCLATE Inactive PENICILLIN V POTASSIUM 500 MG TAB 1 four times a day 2 PENICILLIN V POTASSIUM 500 MG TAB 850855 PENICILLIN V POTASSIUM [place] ctive PRISTIQ 50 MG [id number] 1 po qd PRISTIQ 50 MG [id number] DESVENLAFAXINE SUCCINATE Inactive TYLENOL/CODEINE #3 300-30 MG TAB 1-2 po q6hr PRN Pain TYLENOL/CODEINE #3 300-30 MG TAB 117360 ACETAMINOPHEN-CODEINE Inact krishna CEPHALEXIN 500 MG TABS Take one by mouth four times daily, morning, noon, early evening and bedtime. CEPHALEXIN 500 MG TABS 881145 CEPHALEXIN Inactive LORTAB 5 5-500 MG TABS 1/2 to 1 tablet by mouth go ry 6 hours as needed for pain LORTAB 5 5-500 MG TABS HYDROCODONE-A CETAMINOPHEN Inactive AMITRIPTYLINE HCL 25 MG TAB 1 tab by mouth daily 60 minutes before bedtime AMITRIPTYLINE HCL 25 MG TAB 923588 AMITRIPTYLINE HCL Inactive AMOXICILLIN 500 MG TABS 2 tabs PO bid x 10 d 7 AMOXICILLIN 500 MG TABS 070838 AMOXICILLIN Inactive IMPLANON 68 MG IMPL IMPLANTED IN LEFT ARM IMPLANON 68 MG IMPL ETONOGESTREL Inactive HYDROCODONE-ACETAMINOPHEN 5-325 MG TABS 1 PO tid PRN pain 5 HYDROCODONE-ACETAMINOPHEN 5-325 MG TABS 532521 HYDROCODONE-ACETAMIN OPHEN Inactive BACTRIM DS 800-160 MG TAB 1 tab by mouth twice daily 2 BACTRIM DS 800-160 MG TAB TRIMETHOPRIM-SULFAMETHOXAZOLE Inac tive CEPHALEXIN 500 MG CAPS 1 PO bid x 7 days CEPHALEXIN 500 MG CAPS 262303 CEPHALEXIN Inactive HYDROCODONE-ACETAMINOPHEN 5-325 MG TABS 1 tab by mouth every 6 hours as needed HYDROCODONE-ACETAMINOPHEN 5-325 MG TABS 779499 HYDROCODONE-ACETAMINOPHEN Inactive PROMETHAZINE-CODEINE 6.25-10 MG/5ML SYRP 1 tsp every 6 hrs prn c ough PROMETHAZINE-CODEINE 6.25-10 MG/5ML SYRP 241732 PROMETH AZINE-CODEINE Inactive IBUPROFEN 800 MG TAB 1 pill three times daily as needed for pain IBUPROFEN 800 MG TAB 117117 IBUPROFEN Inactive KEFLEX 500 MG CAP 1 tab po tid KEFLEX 500 MG CAP 064113 CEPHALEXIN Inactive HYDROCODONE-ACETAMINOPHEN 7.5-325 MG TABS 1 four times a day as needed for pain HYDROCODONE-ACETAMINOPHEN 7.5-325 MG TABS 973622 HYDROCODONE-ACETAMINOPHEN Inactive BACTRIM DS 800-160 MG TABS by mouth twice a day 11/05 BACTRIM DS 800-160 MG TABS SULFAMETHOXAZOLE-TRIMETHOPRIM Inactive AMOXICILLIN 875 MG TABS 1 tab by mouth twice daily 201 07/18/07 AMOXICILLIN 875 MG TABS 256327 AMOXICILLIN Inactive KEFLEX 500 MG CAP 1 po tid x 10 days KEFLEX 500 MG CAP 453705 CEPHALEXIN Inactive AMOXICILLIN 875 MG TABS 1 tab by mouth twice daily 201 07/19/27 AMOXICILLIN 875 MG TABS 794246 AMOXICILLIN Inactive AMOXICILLIN 875 MG TABS 1 tab by mouth twice daily 08/09/13 AMOXICILLIN 875 MG TABS 925126 AMOXICILLIN Inactive CIPRO 500 MG TAB 1 tablet by mouth twice daily CIPRO 500 MG TAB 471598 CIPROFLOXACIN HCL Inactive BACTRIM DS 800-160 MG TAB 1 tab by mouth twice daily 2 BACTRIM DS 800-160 MG TAB TRIMETHOPRIM-SULFAMETHOXAZOLE Inac tive LEVAQUIN 500 MG TABS 1 PO q day x 7 days LEVAQUIN 500 MG TABS 386482 LEVOFLOXACIN Inactive Advance Directives Directive Description Start Date PERMISSION TO SHARE Immunizations Vaccine Administration Date Value Standard Alf cription Seasonal influenza vaccine, injectable, containing preservative, for > 3 years old (Afluria, FluLaval, Fluzone, Fluvirin, Fluarix, Agriflu(>= 18 yo)) Fluzone (>3 yrs.) [[id number]] Influenza, seasonal, inject able Seasonal influenza vaccine, injectable, preservative free, for > 3 years old (Afluria, FluLaval, Fluzone, Fluvirin, Fluarix, Agriflu(>= 18 yo)) Fluzone preservative free (>3 yrs.) [[id number]] Influenza, seasonal, injectable, preservative free Seasonal influenza vaccine, injectable, containing preservative, for > 3 years old (Afluria, FluLaval, Fluzone, Fluvirin, Fluarix, Agriflu(>= 18 yo)) Fluzone (>3 yrs.) [[id number]] Influenza, seasonal, inject able Seasonal influenza vaccine, injectable, containing preservative, for > 3 years old (Afluria, FluLaval, Fluzone, Fluvirin, Fluarix, Agriflu(>= 18 yo)) Fluzone (>3 yrs.) [[id number]] Influenza, seasonal, inject able dT (Diphtheria and [...] mg/dL Chart Maintenance: Outside labs entered on [employer]heet - Hematology leukocyte count, blood 8.3 10*3/mm3 erythrocyte (RBC) count 5.2 10*6/mm3 hemoglobin, blood 14.2 g/dL hematocrit, blood 42.6 % mean corpuscular volume, RBC 82.4 fL mean corpuscular hemoglobin, RBC 27.5 pg red blood cell distribution width 12.9 % platelet count 316 10*3/mm3 Lab Report: CBC W/DIFF, Comp. Metabolic Panel, Thyroid Stimulating Hormo ... - Chemistry sodium, serum 140 mmol/L 397-794 5840/02/24 potassium, serum 4.3 mmol/L 3.5-5.2 chloride, serum [...] 4.3-6.0 Lab Report: T3, TOTAL, INSULIN - [employer] Team Lead ry triiodothyronine, serum 78 ng/dL 76-181 Lab [...] mg/dL Encounters Code Encounter Date Provider Facility CPT-65895 Level 3 Est. Patient 14:11:58 CDT Kalpesh goins MD [facility] CPT-76252 Level 3 Est. Patient 16:50:00 CDT Michelle MERCADO [facility] CPT-21740 Level 3 Est. Patient 17:11:32 BOILERMAKER Brandie bates MD PhD [facility] CPT-72524 Level 3 Est. Patient 16:31:47 BOILERMAKER Shola MCGILL [facility] CPT-74838 Level 3 Est. Patient 17:51:10 BOILERMAKER Abhinav Galvan MD [facility] CPT-17132 Level 4 Est. Patient 12:54:56 BOILERMAKER Kalpesh goins MD [facility] CPT-00853 Level 4 Est. Patient 12:53:56 BOILERMAKER Kalpesh goins MD [facility] CPT-38600 Level 3 Est. Patient 17:56:58 CDT Shola MCGILL [facility] CPT-22082 Level 3 Est. Patient 14:26:20 CDT Janak butcher [facility] CPT-10326 Level 3 Est. Patient 09:38:41 CDT Shola Wright [facility] CPT-42521 Level 3 Est. Patient 14:45:26 CDT Edilberto tiwari [facility] CPT-90618 Level 3 Est. Patient 10:51:33 CDT Hira muniz [facility] CPT-52994 Level 3 Est. Patient 11:57:55 BOILERMAKER Shola Thao Adriana [facility] CPT-74031 Level 3 Est. Patient 09:53:33 BOILERMAKER Edilberto tiwari [facility] CPT-59599 Level 3 Est. Patient 14:42:54 BOILERMAKER Abhinav Galvan MD [facility] CPT-10772 Level 3 Est. Patient 15:10:02 CDT Janak butcher [facility] CPT-62077 Level 3 Est. Patient 15:20:20 CDT Theo dennis MD [facility] CPT-59871 Level 2 Est. Patient 14:08:57 CDT Kalpesh goins MD [facility] CPT-08163 Level 3 Est. Patient 13:56:19 CDT Abdirahman Rios MD [facility] CPT-23193 Level 3 Est. Patient 13:59:37 CDT Abdirahman Rios MD [facility] CPT-20512 Level 2 Est. Patient 14:44:59 CDT Kalpesh goins MD [facility]-05659 Level 3 Est. Patient 06:06:23 CDT Edilberto tiwari [facility] CPT-10557 Level 3 Est. Patient 15:23:54 CDT Abdirahman Rios MD [facility] CPT-25098 Level 3 Est. Patient 15:43:49 CDT Abdirahman Rios MD [facility] CPT-80981 Level 3 Est. Patient 12:46:47 BOILERMAKER Abdirahman Rios MD [facility] CPT-39603 Level 3 Est. Patient 08:13:35 BOILERMAKER Abdirahman Rios MD [facility] CPT-58826 Level 2 Est. Patient 09:36:42 BOILERMAKER Abdirahman Rios MD [facility] CPT-75632 Level 3 Est. Patient 10:56:43 CDT Abdirahman Rios MD [facility] CPT-87073 Level 3 Est. Patient 18:24:52 CDT Abdirahman Rios MD [facility] CPT-83672 Level 3 Est. Patient 13:27:22 CDT Abdirahman Rios MD [facility] Procedures Code Procedure Name Date Entry Date Standard Desc ription CPT-OV Office Visit 15:34:48 CDT CPT-91408 Postop F/U Visit 14:50:12 CDT CPT-32216 Postop F/U Visit 14:41:10 CDT CPT-02716 Venipuncture Draw Fee 11:38:04 BOILERMAKER CPT-86575 Postop F/U Visit 19:02:59 BOILERMAKER CPT-63691 Postop F/U Visit 12:04:54 BOILERMAKER CPT-05400 Administration single or combination vac cine inc oral 15:56:43 CDT CPT-69372 Influenza split virus > age 3 15:56:43 CDT CPT-29747 Hand comp min 3V 14:25:19 CDT CPT-86943 Postop F/U Visit 21:40:51 CDT CPT-21621 Postop F/U Visit 10:58:43 CDT CPT-09058 Administration single or combination vac cine inc oral 12:33:54 BOILERMAKER CPT-00357 Influenza Preservative Free split virus >age 3 12:33:54 BOILERMAKER CPT-93282 Administration single or combination vac cine inc oral 09:30:51 CDT CPT-17080 Influenza split virus > age 3 09:30:51 CDT CPT-75222 Postop F/U Visit 15:14:53 CDT CPT-74616 Postop F/U Visit 13:50:14 CDT CPT-30317 Postop F/U Visit 13:34:52 CDT CPT-OV Office Visit 16:55:03 CDT CPT-18789 [place] of cervix w bx ECC 13:32:50 CDT 10/19 CPT-J1885 Toradol 60 mg (Ketorolac) 15:31:59 CDT 2011 CPT-J1885 Toradol 60 mg (Ketorolac) 15:23:54 CDT 2011 CPT-27194 Visit 11:34:37 BOILERMAKER CPT-54049 Visit 10:52:39 BOILERMAKER CPT-47646 Visit 10:12:02 BOILERMAKER CPT-94345 Visit 11:22:43 BOILERMAKER CPT-43393 Visit 11:24:12 BOILERMAKER CPT-10896 Visit 10:47:05 BOILERMAKER CPT-OV Office Visit 10:26:16 BOILERMAKER CPT-OV Office Visit 15:34:31 BOILERMAKER CPT-72884 Visit 10:42:08 BOILERMAKER CPT-34858 Visit 10:52:45 BOILERMAKER CPT-000 Give Appropriate Flu Vaccine 16:56:41 CDT 2 CPT-74896 Administration single or combination vac cine inc oral 10:33:21 CDT CPT-49033 Influenza split virus > age 3 10:33:21 CDT CPT-53016 Visit 13:23:09 CDT CPT-81268 Visit 18:24:52 CDT CPT-93192 [facility] OB comp > 14 weeks 12:07:49 CDT 04/07
--- OUTSIDE RECORDS SUMMARY | 2020-01-18 16:48 | XMS REPORT | Clinical Summary ---
Author Author Admin, Jeri Rashid Organization [facility] Address Unknown Phone Allergies, Adverse Reactions, [...] by mouth twice a day 11/05 SULFAMETHOXAZOLE-TRIMETHOPRIM [id number] No Longer Active Good Julian MD Active IBUPROFEN 800 MG TABS 1 tid prn IBUPROFEN 31879399771 Active Good Julian MD Active ENDOCET 10-325 MG TABS 1 q 6 hr prn OXYCODONE-A CETAMINOPHEN 42008219877 Active Shola MCGILL Active HYDROCODONE-ACETAMINOPHEN 7.5-325 MG TABS 1 four times a day as needed for pain HYDROCODONE-ACETAMINOPHEN 40770557008 No Longer Activ crystal Julian MD Active KEFLEX 500 MG CAP 1 tab po tid CEPHALEXIN 378515 18398 No Longer Active Hira Moser APRN Active IBUPROFEN 800 MG TAB 1 pill three times daily as needed for pain IBUPROFEN 60637686929 No Longer Active Kalpesh Dong MD Active PROMETHAZINE-CODEINE 6.25-10 MG/5ML SYRP 1 tsp every 6 hrs prn c ough PROMETHAZINE-CODEINE 96051491273 No Longer Active Kalpesh Carr Active ALPRAZOLAM 0.5 MG TABS 1 PO bid PRN ALPRAZOLAM 147717 78783 Active Shola MCGILL Active HYDROCODONE-ACETAMINOPHEN 5-325 MG TABS 1 tab by mouth every 6 hours as needed HYDROCODONE-ACETAMINOPHEN 78171692062 No Longer Activ e Shola MCGILL Active CEPHALEXIN 500 MG CAPS 1 PO bid x 7 days CEPHAL EXIN 40588014192 No Longer Active Shola MCGILL Active BACTRIM DS 800-160 MG TAB 1 tab by mouth twice daily 2 TRIMETHOPRIM-SULFAMETHOXAZOLE 96825411446 No Longer Active Kalpesh Dong MD Active HYDROCODONE-ACETAMINOPHEN 5-325 MG TABS 1 PO tid PRN pain 5 HYDROCODONE-ACETAMINOPHEN 33314710942 No Longer Active Abhinav Galvan MD Active IMPLANON 68 MG IMPL IMPLANTED IN LEFT ARM ETONO GESTREL 02893335422 No Longer Active 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 WOOD BOX MAKER Active AMOXICILLIN 500 MG TABS 2 tabs PO bid x 10 d AM OXICILLIN 42491017593 No Longer Active Kalpesh Dong MD Active LEVAQUIN 500 MG TABS 1 PO q day x 7 days LEVOFL OXACIN 49747234269 No Longer Active Shola MCGILL Active PROAIR HFA 108 (90 BASE) MCG/ACT AERS 2 puff q 4-6 hrs PRN ALBUTEROL SULFATE 47863447106 Active Shola MCGILL Acti ve FIORICET 50-325-40 MG TABS 2 PO q 8 hrs PRN FOSTER [id number] 45660393450 Active Abdirahman Rios MD Active AMITRIPTYLINE HCL 25 MG TAB 1 tab by mouth daily 60 minutes before bedtime AMITRIPTYLINE HCL 10696671314 No Longer Active Shola MCGILL Active LORTAB 5 5-500 MG TABS 1/2 to 1 tablet by mouth go ry 6 hours as needed for pain HYDROCODONE-ACETAMINOPHEN 81930942670 No Longer Active Shola MCGILL Active CEPHALEXIN 500 MG TABS Take one by mouth four times daily, morning, noon, early evening and bedtime. CEPHALEXIN 32575772036 No Long er Active Hira Moser WOOD BOX MAKER Active TYLENOL/CODEINE #3 300-30 MG TAB 1-2 po q6hr PRN Pain ACETAMINOPHEN-CODEINE 15039127056 No Longer Active Edilberto Marino DO Active PRISTIQ 50 MG [id number] 1 po qd DESVENLAFAXI NE SUCCINATE 14162505635 No Longer Active Edilberto Marino DO Active PENICILLIN V POTASSIUM 500 MG TAB 1 four times a day 2 PENICILLIN V POTASSIUM 29196738603 No Longer Active Edilberto Marino DO Active DOXYCYCLINE HYCLATE 100 MG CAPS Take one (1) tablet by mouth twice a day DOXYCYCLINE HYCLATE 65828288100 No Longer Active Ronnie Galvan MD Active HYDROCODONE-ACETAMINOPHEN 5-325 MG TABS 1 po q 6hr PRN Pain 2011 HYDROCODONE-ACETAMINOPHEN 50453113622 No Longer Active Patri joan Perez RN Active BACTRIM DS 800-160 MG TAB 1 tab by mouth twice daily 2 TRIMETHOPRIM-SULFAMETHOXAZOLE 04865177592 No Longer Active Kalpesh Dong MD Active LORTAB 5 5-500 MG TABS 1/2 to 1 tablet by mouth go ry 4 hours as needed for pain HYDROCODONE-ACETAMINOPHEN 50995067378 No Longer Active Kalpesh Dong MD Active GENERESS FE 0.8-25 MG-MCG CHEW Take one by mouth daily NORETHIN-ETH ESTRADIOL-FE 59402431977 No Longer Active Kalpesh Dong MD Active HYDROCODONE-ACETAMINOPHEN 7.5-500 MG TABS 1-2 every 4 hours as needed HYDROCODONE-ACETAMINOPHEN 49106990857 No Longer Activ e Kalpesh Dong MD Active FERROUS SULFATE 325 (65 FE) MG TABS 1 tablet by mouth twice yung y FERROUS SULFATE 09183833550 No Longer Active Kalpesh Dong MD Active IBUPROFEN 600 MG TAB 1 po q6-8hr PRN IBUPROFEN 19151155667 No Longer Active Kalpesh Dong MD Active SPIRONOLACTONE 25 MG TAB 1 tablet by mouth daily 01/22 SPIRONOLACTONE 40802784234 No Longer Active Kalpesh Dong MD Acti ve HYDROCODONE-ACETAMINOPHEN 7.5-325 MG TABS 1 po QID PRN Pain 2011 HYDROCODONE-ACETAMINOPHEN 59406767685 No Longer Active Kalpesh Dong MD Active CLINDAMYCIN HCL 300 MG CAPS 1 po q6hr x 7 days CLINDAMYCIN HCL 76903479383 No Longer Active Edilberto Marino DO Active PREDNISONE 20 MG TAB 2 tabs daily for 4 days, 1 t ab daily for 4 days, 1/2 tab daily for 4 days PREDNISONE 36207028096 No Longer Active Edilberto Marino DO Active PERCOCET 5-325 MG TABS 1 tablet by mouth every 6 hours as ne eded for pain OXYCODONE-ACETAMINOPHEN 19489640894 No Longer Active Abdirahman Rios MD Active VITAMINS TABS Take one by mouth daily MV & MIN W/FE-FA TABS 00087557462 No Longer Active Abdirahman Rios MD Active LUIS 3-0.02 MG TABS 1 tablet by mouth daily as directed DROSPIRENONE-ETHINYL ESTRADIOL 29305413987 No Longer Active Abdirahman Rios MD Active LORATADINE 10 MG TABS 1 tablet by mouth daily L ORATADINE 23996189343 No Longer Active Kalpesh Dong MD Active HYDROCODONE-ACETAMINOPHEN 5-325 MG TABS 1 po q 6hr PRN Pain 2010 HYDROCODONE-ACETAMINOPHEN 28651965461 No Longer Active Edilberto Marino DO Active BACTRIM DS 800-160 MG TAB 1 tab by mouth twice daily 2 TRIMETHOPRIM-SULFAMETHOXAZOLE 00747359705 No Longer Active Abdirahman Rios MD Active 28-0.8 MG TABS Take one by mouth daily 09/20 VIT-FE FUMARATE-FA 53102501938 No Longer Active Abdirahman Rios MD Active CIPRO 500 MG TAB 1 tablet by mouth twice daily CIPROFLOXACIN HCL 91717409547 No Longer Active Abdirahman Rios MD Active BENADRYL 25 MG CAP 1 po q8hr PRN Congestion DIPHENHYDRAMINE HCL 46072912871 No Longer Active Abdirahman Rios MD Active ZOLOFT 50 MG TAB 1 po qd SERTRALINE HCL 359850 23648 No Longer Active Abdirahman Rios MD Active AMOXICILLIN 875 MG TABS 1 tab by mouth twice daily 201 08/09/13 AMOXICILLIN 58655220327 No Longer Active Abdirahman Rios MD Activ e AMOXICILLIN 875 MG TABS 1 tab by mouth twice daily 201 07/19/27 AMOXICILLIN 31650410011 No Longer Active Abdirahman Rios MD Activ e BACTRIM DS 800-160 MG TAB 2 tab by mouth twice daily 2 TRIMETHOPRIM-SULFAMETHOXAZOLE 96911256143 No Longer Active Abdirahman Rios MD Active KEFLEX 500 MG CAP 1 po tid x 10 days CEPHALEXIN 30632688401 No Longer Active Abdirahman Rios MD Active AMOXICILLIN 875 MG TABS 1 tab by mouth twice daily 201 07/18/07 AMOXICILLIN 68690225264 No Longer Active Abdirahman Rios MD Activ e BACTRIM DS 800-160 MG TAB 2 tab by mouth twice daily 2 BACTRIM DS 800-160 MG TAB TRIMETHOPRIM-SULFAMETHOXAZOLE Inactive ZOLOFT 50 MG TAB 1 po qd ZOLOFT 50 MG TAB 3129 41 SERTRALINE HCL Inactive BENADRYL 25 MG CAP 1 po q8hr PRN Congestion BENADRYL 25 MG CAP 3571827 DIPHENHYDRAMINE HCL Inactive 28-0.8 MG TABS Take one by mouth daily 09/20 28-0.8 MG TABS VIT-FE FUMARATE-FA Inactive HYDROCODONE-ACETAMINOPHEN 5-325 MG TABS 1 po q 6hr PRN Pain 2010 HYDROCODONE-ACETAMINOPHEN 5-325 MG TABS 408828 HYDROCODONE-ACETAMINOPHEN Inactive LORATADINE 10 MG TABS 1 tablet by mouth daily LORATADINE 10 MG TABS 232547 LORATADINE Inactive LUIS 3-0.02 MG TABS 1 tablet by mouth daily as directed LUIS 3-0.02 MG TABS DROSPIRENONE-ETHINYL ESTRADIOL Inactive VITAMINS TABS Take one by mouth daily VITAMINS TABS MV & MIN W/FE-FA TABS Inactive PERCOCET 5-325 MG TABS 1 tablet by mouth every 6 hours as ne eded for pain PERCOCET 5-325 MG TABS 5687992 OXYCODONE-ACETAMIN OPHEN Inactive PREDNISONE 20 MG TAB 2 tabs daily for 4 days, 1 t ab daily for 4 days, 1/2 tab daily for 4 days PREDNISONE 20 MG TAB 479749 PREDNISON E Inactive CLINDAMYCIN HCL 300 MG CAPS 1 po q6hr x 7 days CLINDAMYCIN HCL 300 MG CAPS 729911 CLINDAMYCIN HCL Inactive HYDROCODONE-ACETAMINOPHEN 7.5-325 MG TABS 1 po QID PRN Pain 2011 HYDROCODONE-ACETAMINOPHEN 7.5-325 MG TABS 998481 HYDROCODONE-ACETAMINOPHEN Inactive SPIRONOLACTONE 25 MG TAB 1 tablet by mouth daily 01/22 SPIRONOLACTONE 25 MG TAB 767731 SPIRONOLACTONE Inactive IBUPROFEN 600 MG TAB 1 po q6-8hr PRN IBUPROFEN 600 MG TAB 435535 IBUPROFEN Inactive FERROUS SULFATE 325 (65 FE) MG TABS 1 tablet by mouth twice yung y FERROUS SULFATE 325 (65 FE) MG TABS 838980 FERROUS SULF ATE Inactive HYDROCODONE-ACETAMINOPHEN 7.5-500 MG TABS 1-2 every 4 hours as needed HYDROCODONE-ACETAMINOPHEN 7.5-500 MG TABS 398788 HYDROCODONE-ACETAMINOPHEN Inactive GENERESS FE 0.8-25 MG-MCG CHEW [...] PRN Pain 2011 HYDROCODONE-ACETAMINOPHEN 5-325 MG TABS 297472 HYDROCODONE-ACETAMINOPHEN Inactive DOXYCYCLINE HYCLATE 100 MG CAPS Take one (1) tablet by mouth twice a day DOXYCYCLINE HYCLATE 100 MG CAPS 232279 DOXYCYCLINE HYCLATE Inactive PENICILLIN V POTASSIUM 500 MG TAB 1 four times a day 2 PENICILLIN V POTASSIUM 500 MG TAB 366805 PENICILLIN V POTASSIUM [place] PRISTIQ 50 MG [id number] 1 po qd PRISTIQ 50 MG [id number] DESVENLAFAXINE SUCCINATE Inactive TYLENOL/CODEINE #3 300-30 MG TAB 1-2 po q6hr PRN Pain TYLENOL/CODEINE #3 300-30 MG TAB 287565 ACETAMINOPHEN-CODEINE Inact krishna CEPHALEXIN 500 MG TABS Take one by mouth four times daily, morning, noon, early evening and bedtime. CEPHALEXIN 500 MG TABS 581271 CEPHALEXIN Inactive LORTAB 5 5-500 MG TABS 1/2 to 1 tablet by mouth go ry 6 hours as needed for pain LORTAB 5 5-500 MG TABS HYDROCODONE-A CETAMINOPHEN Inactive AMITRIPTYLINE HCL 25 MG TAB 1 tab by mouth daily 60 minutes before bedtime AMITRIPTYLINE HCL 25 MG TAB 581799 AMITRIPTYLINE HCL Inactive AMOXICILLIN 500 MG TABS 2 tabs PO bid x 10 d 7 AMOXICILLIN 500 MG TABS 538101 AMOXICILLIN Inactive IMPLANON 68 MG IMPL IMPLANTED IN LEFT ARM IMPLANON 68 MG IMPL ETONOGESTREL Inactive HYDROCODONE-ACETAMINOPHEN 5-325 MG TABS 1 PO tid PRN pain 5 HYDROCODONE-ACETAMINOPHEN 5-325 MG TABS 366740 HYDROCODONE-ACETAMIN OPHEN Inactive BACTRIM DS 800-160 MG TAB 1 tab by mouth twice daily 2 BACTRIM DS 800-160 MG TAB TRIMETHOPRIM-SULFAMETHOXAZOLE Inac tive CEPHALEXIN 500 MG CAPS 1 PO bid x 7 days CEPHALEXIN 500 MG CAPS 147355 CEPHALEXIN Inactive HYDROCODONE-ACETAMINOPHEN 5-325 MG TABS 1 tab by mouth every 6 hours as needed HYDROCODONE-ACETAMINOPHEN 5-325 MG TABS 361770 HYDROCODONE-ACETAMINOPHEN Inactive PROMETHAZINE-CODEINE 6.25-10 MG/5ML SYRP 1 tsp every 6 hrs prn c ough PROMETHAZINE-CODEINE 6.25-10 MG/5ML SYRP 135159 PROMETH AZINE-CODEINE Inactive IBUPROFEN 800 MG TAB 1 pill three times daily as needed for pain IBUPROFEN 800 MG TAB 881988 IBUPROFEN Inactive KEFLEX 500 MG CAP 1 tab po tid KEFLEX 500 MG CAP 765990 CEPHALEXIN Inactive HYDROCODONE-ACETAMINOPHEN 7.5-325 MG TABS 1 four times a day as needed for pain HYDROCODONE-ACETAMINOPHEN 7.5-325 MG TABS 971217 HYDROCODONE-ACETAMINOPHEN Inactive BACTRIM DS 800-160 MG TABS by mouth twice a day 11/05 BACTRIM DS 800-160 MG TABS SULFAMETHOXAZOLE-TRIMETHOPRIM Inactive AMOXICILLIN 875 MG TABS 1 tab by mouth twice daily 201 07/18/07 AMOXICILLIN 875 MG TABS 274164 AMOXICILLIN Inactive KEFLEX 500 MG CAP 1 po tid x 10 days KEFLEX 500 MG CAP 263071 CEPHALEXIN Inactive AMOXICILLIN 875 MG TABS 1 tab by mouth twice daily 201 07/19/27 AMOXICILLIN 875 MG TABS 912679 AMOXICILLIN Inactive AMOXICILLIN 875 MG TABS 1 tab by mouth twice daily 08/09/13 AMOXICILLIN 875 MG TABS 901846 AMOXICILLIN Inactive CIPRO 500 MG TAB 1 tablet by mouth twice daily CIPRO 500 MG TAB 669277 CIPROFLOXACIN HCL Inactive BACTRIM DS 800-160 MG TAB 1 tab by mouth twice daily 2 BACTRIM DS 800-160 MG TAB TRIMETHOPRIM-SULFAMETHOXAZOLE Inac tive LEVAQUIN 500 MG TABS 1 PO q day x 7 days LEVAQUIN 500 MG TABS 613958 LEVOFLOXACIN Inactive Advance Directives Directive Description Start Date PERMISSION TO SHARE Immunizations Vaccine Administration Date Value Standard Alf cription Seasonal influenza vaccine, injectable, containing preservative, for > 3 years old (Afluria, FluLaval, Fluzone, Fluvirin, Fluarix, Agriflu(>= 18 yo)) Fluzone (>3 yrs.) [[id number]] Influenza, seasonal, inject able Seasonal influenza vaccine, injectable, preservative free, for > 3 years old (Afluria, FluLaval, Fluzone, Fluvirin, Fluarix, Agriflu(>= 18 yo)) Fluzone preservative free (>3 yrs.) [[id number]] Influenza, seasonal, injectable, preservative free Seasonal influenza vaccine, injectable, containing preservative, for > 3 years old (Afluria, FluLaval, Fluzone, Fluvirin, Fluarix, Agriflu(>= 18 yo)) Fluzone (>3 yrs.) [[id number]] Influenza, seasonal, inject able Seasonal influenza vaccine, injectable, containing preservative, for > 3 years old (Afluria, FluLaval, Fluzone, Fluvirin, Fluarix, Agriflu(>= 18 yo)) Fluzone (>3 yrs.) [[id number]] Influenza, seasonal, inject able dT (Diphtheria and Tetanus) booster Historical Td(adult) unspecified formulation Vital Signs Date Name Value Unit Range Description blood pressure, diastolic 84 mm[Hg] BP ribeiro [...] weight E&M 240.6 [lb_av] Weight Measure d blood pressure, diastolic 79 mm[Hg] BP ribeiro blood pressure, systolic 118 mm[Hg] BP sys height E&M 66 [in_us] Bdy height pulse rate E&M 76 /min Heart rate temperature E&M 97.7 [degF] Body temp erature weight E&M 238.6 [lb_av] Weight Measure d blood pressure, diastolic 83 mm[Hg] BP ribeiro blood pressure, systolic 130 mm[Hg] BP sys height E&M 66 [in_us] Bdy height pulse rate E&M 89 /min Heart rate temperature E&M 97.5 [degF] Body temp erature weight E&M 239 [lb_av] Weight Measure d Diagnostic Results Date [...] ... - Chemistry sodium, serum 140 mmol/L 460-528 4300/02/24 potassium, serum 4.3 mmol/L 3.5-5.2 chloride, serum [...] 4.3-6.0 Lab Report: T3, TOTAL, INSULIN - Electric Stove Mechanic ry triiodothyronine, serum 78 ng/dL 76-181 [...] mg/dL Encounters Code Encounter Date Provider Facility CPT-94328 Level 3 Est. Patient 14:11:58 CDT Kalpesh goins MD [facility] CPT-23222 Level 3 Est. Patient 16:50:00 CDT Michelle MERCADO [facility] CPT-44679 Level 3 Est. Patient 17:11:32 PEBBLE MILL OPERATOR Brandie bates MD PhD [facility] CPT-57114 Level 3 Est. Patient 16:31:47 PEBBLE MILL OPERATOR Shola MCGILL [facility] CPT-11095 Level 3 Est. Patient 17:51:10 PEBBLE MILL OPERATOR Abhinav Galvan MD [facility] CPT-84764 Level 4 Est. Patient 12:54:56 PEBBLE MILL OPERATOR Kalpesh goins MD [facility] CPT-39814 Level 4 Est. Patient 12:53:56 PEBBLE MILL OPERATOR Kalpesh goins MD [facility] CPT-42108 Level 3 Est. Patient 17:56:58 CDT Shola Wright [facility] CPT-43013 Level 3 Est. Patient 14:26:20 CDT Janak butcher [facility] CPT-55545 Level 3 Est. Patient 09:38:41 CDT Shola Keesha Wright [facility] CPT-55318 Level 3 Est. Patient 14:45:26 CDT Edilberto tiwari [facility]-69211 Level 3 Est. Patient 10:51:33 [facility]. Patient 11:57:55 PEBBLE MILL OPERATOR Shola Thao Adriana [facility] CPT-11614 Level 3 Est. Patient 09:53:33 PEBBLE MILL OPERATOR Edilberto tiwari [facility] CPT-51073 Level 3 Est. Patient 14:42:54 PEBBLE MILL OPERATOR Abhinav Galvan MD [facility] CPT-14953 Level 3 Est. Patient 15:10:02 CDT Janak butcher [facility] CPT-12556 Level 3 Est. Patient 15:20:20 CDT Theo dennis MD [facility] CPT-81849 Level 2 Est. Patient 14:08:57 CDT Kalpesh goins MD [facility]-17494 Level 3 Est. Patient 13:56:19 CDT Abdirahman Rios MD [facility] CPT-60951 Level 3 Est. Patient 13:59:37 CDT Abdirahman Rios MD [facility] CPT-24080 Level 2 Est. Patient 14:44:59 CDT Kalpesh goins MD [facility] CPT-79988 Level 3 Est. Patient 06:06:23 CDT Edilberto tiwari DO [facility] CPT-64024 Level 3 Est. Patient 15:23:54 CDT Abdirahman Rios MD [facility] CPT-76107 Level 3 Est. Patient 15:43:49 CDT Abdirahman Rios MD [facility] CPT-64841 Level 3 Est. Patient 12:46:47 PEBBLE MILL OPERATOR Abdirahman Rios MD [facility] CPT-32146 Level 3 Est. Patient 08:13:35 PEBBLE MILL OPERATOR Abdirahman Rios MD [facility] CPT-41844 Level 2 Est. Patient 09:36:42 PEBBLE MILL OPERATOR Abdirahman Rios MD [facility] CPT-59185 Level 3 Est. Patient 10:56:43 CDT Abdirahman Rios MD [facility] CPT-32487 Level 3 Est. Patient 18:24:52 CDT Abdirahman Rios MD [facility] CPT-71826 Level 3 Est. Patient 13:27:22 CDT Abdirahman Rios MD [facility] Procedures Code Procedure Name Date Entry Date Standard Desc ription CPT-OV Office Visit 15:34:48 CDT CPT-44540 Postop F/U Visit 14:50:12 CDT CPT-78929 Postop F/U Visit 14:41:10 CDT CPT-33065 Venipuncture Draw Fee 11:38:04 PEBBLE MILL OPERATOR CPT-57752 Postop F/U Visit 19:02:59 PEBBLE MILL OPERATOR CPT-49541 Postop F/U Visit 12:04:54 PEBBLE MILL OPERATOR CPT-42946 Administration single or combination vac cine inc oral 15:56:43 CDT CPT-74491 Influenza split virus > age 3 15:56:43 CDT CPT-14371 Hand comp min 3V 14:25:19 CDT CPT-58369 Postop F/U Visit 21:40:51 CDT CPT-53639 Postop F/U Visit 10:58:43 CDT CPT-99166 Administration single or combination vac cine inc oral 12:33:54 PEBBLE MILL OPERATOR CPT-10325 Influenza Preservative Free split virus >age 3 12:33:54 PEBBLE MILL OPERATOR CPT-19665 Administration single or combination vac cine inc oral 09:30:51 CDT CPT-45658 Influenza split virus > age 3 09:30:51 CDT CPT-91194 Postop F/U Visit 15:14:53 CDT CPT-08764 Postop F/U Visit 13:50:14 CDT CPT-91316 Postop F/U Visit 13:34:52 CDT CPT-OV Office Visit 16:55:03 CDT CPT-90315 [place] of cervix w bx ECC 13:32:50 CDT 10/19 CPT-J1885 Toradol 60 mg (Ketorolac) 15:31:59 CDT 2011 CPT-J1885 Toradol 60 mg (Ketorolac) 15:23:54 CDT 2011 CPT-12535 Visit 11:34:37 PEBBLE MILL OPERATOR CPT-80410 Visit 10:52:39 PEBBLE MILL OPERATOR CPT-10780 Visit 10:12:02 PEBBLE MILL OPERATOR CPT-37589 Visit 11:22:43 PEBBLE MILL OPERATOR CPT-07689 Visit 11:24:12 PEBBLE MILL OPERATOR CPT-82650 Visit 10:47:05 PEBBLE MILL OPERATOR CPT-OV Office Visit 10:26:16 PEBBLE MILL OPERATOR CPT-OV Office Visit 15:34:31 PEBBLE MILL OPERATOR CPT-92373 Visit 10:42:08 PEBBLE MILL OPERATOR CPT-89783 Visit 10:52:45 PEBBLE MILL OPERATOR CPT-000 Give Appropriate Flu Vaccine 16:56:41 CDT 2 CPT-03519 Administration single or combination vac cine inc oral 10:33:21 CDT CPT-76940 Influenza split virus > age 3 10:33:21 CDT CPT-16027 Visit 13:23:09 CDT CPT-74201 Visit 18:24:52 CDT CPT-02349 Sono OB comp > 14 weeks 12:07:49 CDT 04/07
--- OUTSIDE RECORDS SUMMARY | 2020-01-18 16:48 | XMS REPORT ---
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 [...] Needed for pain Current Patient medication list oxycodone-acetaminophen 10 mg-325 mg tablet 1 tablet oral WI N Every 12 Hours Current Patient recall Allergies, adverse reactions, alerts Allergen Category Ingredient Status Reaction Severity Onset Latex Drug Allergy Latex Confirmed or Verified Latex Environmental Allergy LATEX Confirmed or Verified azithromycin Drug Allergy azithromycin Confirmed or Verified itching azithromycin Drug Allergy azithromycin Confirmed or Verified redmess Immunizations No immunizations recorded for this patient visit Relevant diagnostic tests and/or laboratory data RESULTS Routine Cultures [id number]:00 Wound Culture Plate Date and Time 06/26/2014 12:08 SourceABDOMEN CULTURE REPORT No Growth After 24 Hours Release Date/Time: 08/28/2013 07:58 CULTURE REPORT No Pathogens Isolated Release Date/Time: 08/29/2013 07:19 GRAM STAIN No cells seen on microscopic Examination No Organisms Seen. Release Date/Time: 08/27/2013 15:18 Reference Lab (Sendout) [id number]:00 Result Normal Range Units Culture SEE NOTE CULTURE, ANAEROBIC BACTERIA W/GRAM STAIN MICRO NUMBER:[id number] TEST STATUS: FINAL SPECIMEN SOURCE: ABDOMEN SPECIMEN QUALITY:ADEQUATE GRAM STAIN:No organisms or white blood cells seen RESULT:Heavy jamel wth of Peptostreptococcus sp. TEST PERFORMED AT: [facility] [address] [place] [address] WILI SINHA DO,MPH History of procedures Procedure Code Code Type Description Date Performed Performing Physician 54.3 ICD9-CM DESTRUCT ABD WALL LESION 06-26-2014 Margo GARZA 86.3 ICD9-CM OTH LOCAL EXC LESION 06-26-2014 86.04 ICD9-CM OTHER SKIN SUBQ I D 06-26-2014 57495 CPT-4 DRAINAGE OF SKIN ABSCESS 06-26-2014 Margo GARZA 50194 CPT-4 REMOVAL, SWEAT GLAND LESION 06-26-2014 CATY GARZA 80122 CPT-4 SPECIAL SUPPLIES 06-26-2014 CATY DEL VALLE 62349 CPT-4 SPECIAL SUPPLIES 06-26-2014 CATY DEL VALLE 92180 CPT-4 SMEAR, GRAM STAIN 06-26-2014 CATY DONALDSON ATES 97677 CPT-4 CULTR BACTERIA, EXCEPT BLOOD 06-26-2014 CATY GARZA 59831 CPT-4 CULTR BACTERIA, EXCEPT BLOOD 06-26-2014 CATY GARZA J3370 CPT-4 VANCOMYCIN HCL INJECTION 06-26-2014 Margo GARZA J7120 CPT-4 RINGERS LACTATE INFUSION 06-26-2014 Margo GARZA J2250 CPT-4 INJ MIDAZOLAM HYDROCHLORIDE 06-26-2014 CATY GARZA J3010 CPT-4 FENTANYL CITRATE INJECITON 06-26-2014 CATY GARZA J2250 CPT-4 INJ MIDAZOLAM HYDROCHLORIDE 06-26-2014 CATY GARZA J2405 CPT-4 ONDANSETRON HCL INJECTION 06-26-2014 CATY GARZA J1885 CPT-4 TORADOL SYR 30MG/ML 06-26-2014 CATY GARZA C9290 CPT-4 INJ, BUPIVICAINE LIPOSOME 06-26-2014 CATY GARZA J2250 CPT-4 INJ MIDAZOLAM HYDROCHLORIDE 06-26-2014 CATY GARZA J2270 CPT-4 MORPHINE SULFATE INJECTION 06-26-2014 CATY GARZA J7120 CPT-4 RINGERS LACTATE INFUSION 06-26-2014 Margo GARZA 26083 CPT-4 SPECIAL SUPPLIES 06-26-2014 CATY DEL VALLE Functional status Functional Status Finding Observation Time Hearing Prob Loc none [id number]:55 Vision Problems yes [id number]:55 Vision Correct Dev glasses [id number]:55 Ambulation Asst Dev none [id number]:55 Range of Motion full :45 Muscle Strength RUE 5 ROM full resist [id number]:45 Muscle Strength RLE 5 ROM full resist [id number]:45 Muscle Strength LUE 5 ROM full resist :45 Muscle Strength LLE 5 ROM full resist :45 Transfers assist x 1 32-83-130215:45 Ambulation in room 02-56-238530:45 Balance steady 29-95-085519:09 Bathing Assistance none 67-87-579086:55 Eating Assistance none :55 Dressing Assistance none 67-81-150653:55 Toileting Assistance none :55 Transfer Assistance none :55 Decline Slf Care/Mob no :55 Phys Cond Stable yes [id number]:55 Cognitive Status Finding Observation Time Learning Ability comprehends well :30 Neurological no 94-43-676819:30 Psychological no 31-97-952601:30 Physical no 03-92-067457:30 Hearing no :30 Ccu Nurse Needed no :30 Sign Language no :30 Emotional no :30 Vision yes :30 [place] no :30 Financial no :30 Vital signs Type Value Date Respiration Rate 18breaths per minute 83-08-411575: 15 Pulse 88beats per minute 61-98-495861:15 Oxygen Saturation 98% 08-94-651482:15 BP Systolic 134mmHg 36-31-604167:15 BP Diastolic 78mmHg 60-47-658767:15 Temperature 97.1F 37-64-649944:45 Height 63inches :06 Weight 234LB :06 Social history Type Value Smoking Status CURRENT EVERY DAY SMOKER Treatment Plan No treatment plan text is available for this visit. Hospital discharge instructions Valuables no Follow up appt already scheduled
--- OUTSIDE RECORDS SUMMARY | 2020-01-18 16:49 | XMS REPORT | Clinical Summary ---
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 Stormy Julian MD ENCOUNTER FOR THERAPEUTIC DRUG MONITORING ICD-V58.83 Inactive Godo Julian MD AMENORRHEA ICD-626.0 Inactive Good sierra [...] 15 MG TABS 1 tab daily MELOXICAM [id number] Ac jason Julian MD Active PERCOCET 7.5-325 MG TABS 1 PO q 8 hrs PRN pain OXYCODONE-ACETAMINOPHEN 80586375514 No Longer Active Shola MCGILL Active HYDROCODONE-ACETAMINOPHEN 10-325 MG TABS 1 by mouth ev chaka 8 hours as needed for pain HYDROCODONE-ACETAMINOPHEN 17473298802 Active Shola MCGILL Active HYDROCODONE-ACETAMINOPHEN 7.5-325 MG TABS 1 by mouth e very 6 hours as needed for pain HYDROCODONE-ACETAMINOPHEN 32943955886 No Longer Active Good Julian MD Active LC-5 LIDOCAINE 5 % CREA apply 1 time daily to affected area LIDOCAINE (ANORECTAL) 78311913466 Active Shola MCGILL Active CLINDAMYCIN HCL 300 MG CAPS 1 po QID x 7 days CLINDAMYCIN HCL 76022807097 No Longer Active Abdirahman Rios MD Activ e BACTRIM DS 800-160 MG TABS 1 po BID x 7 days 5 SULFAMETHOXAZOLE-TRIMETHOPRIM 85595775391 No Longer Active Abdirahman Rios MD Active ENDOCET 10-325 MG TABS 1 q 6 hr prn OXYCODONE-ACETAMINOPHEN 33178296458 No Longer Active Abdirahman Rios MD Active IBUPROFEN 800 MG TABS 1 tid prn IBUPROFEN 252508 36567 No Longer Active Abdirahman Rios MD Active BACTRIM DS 800-160 MG TABS by mouth twice a day 11/05 SULFAMETHOXAZOLE-TRIMETHOPRIM 79074757698 No Longer Active Good Julian MD Active HYDROCODONE-ACETAMINOPHEN 7.5-325 MG TABS 1 four times a day as needed for pain HYDROCODONE-ACETAMINOPHEN 42451199881 No Longer Activ e Good Julian MD Active KEFLEX 500 MG CAP 1 tab po tid CEPHALEXIN 826700 56733 No Longer Active Hira Moser APRN Active IBUPROFEN 800 MG TAB 1 pill three times daily as needed for pain IBUPROFEN 17387274236 No Longer Active Kalpesh Dong MD Active PROMETHAZINE-CODEINE 6.25-10 MG/5ML SYRP 1 tsp every 6 hrs prn c ough PROMETHAZINE-CODEINE 36593369174 No Longer Active Kalpesh Carr Active ALPRAZOLAM 0.5 MG TABS 1 PO bid PRN ALPRAZOLAM 150544 19808 Active Shola MCGILL Active HYDROCODONE-ACETAMINOPHEN 5-325 MG TABS 1 tab by mouth every 6 hours as needed HYDROCODONE-ACETAMINOPHEN 02663816138 No Longer Activ e Shola MCGILL Active CEPHALEXIN 500 MG CAPS 1 PO bid x 7 days CEPHAL EXIN 45507399962 No Longer Active Shola MCGILL Active BACTRIM DS 800-160 MG TAB 1 tab by mouth twice daily 2 TRIMETHOPRIM-SULFAMETHOXAZOLE 15744425618 No Longer Active Kalpesh Dong MD Active HYDROCODONE-ACETAMINOPHEN 5-325 MG TABS 1 PO tid PRN pain 5 HYDROCODONE-ACETAMINOPHEN 03114850798 No Longer Active Abhinav Galvan MD Active IMPLANON 68 MG IMPL IMPLANTED IN LEFT ARM ETONO GESTREL 17757752021 No Longer Active Jielias Perazal LABOURERS Active AMOXICILLIN 500 MG TABS 2 tabs PO bid x 10 d AM OXICILLIN 13190519089 No Longer Active Kalpesh Dong MD Active LEVAQUIN 500 MG TABS 1 PO q day x 7 days LEVOFL OXACIN 28611617792 No Longer Active Shola MCGILL Active PROAIR HFA 108 (90 BASE) MCG/ACT AERS 2 puff q 4-6 hrs PRN ALBUTEROL SULFATE 45552461254 Active Shola MCGILL Acti ve FIORICET 50-325-40 MG TABS 2 PO q 8 hrs PRN FOSTER [id number] Active Shola MCGILL Active AMITRIPTYLINE HCL 25 MG TAB 1 tab by mouth daily 60 minutes before bedtime AMITRIPTYLINE HCL 46038717197 No Longer Active Shola MCGILL Active LORTAB 5 5-500 MG TABS 1/2 to 1 tablet by mouth go ry 6 hours as needed for pain HYDROCODONE-ACETAMINOPHEN 88340689421 No Longer Active Shola MCGILL Active CEPHALEXIN 500 MG TABS Take one by mouth four times daily, morning, noon, early evening and bedtime. CEPHALEXIN 66010655477 No Long er Active Hira Perazaabel LABOURERS Active TYLENOL/CODEINE #3 300-30 MG TAB 1-2 po q6hr PRN Pain ACETAMINOPHEN-CODEINE 78154300248 No Longer Active Edilberto Marino DO Active PRISTIQ 50 MG [id number] 1 po qd DESVENLAFAXI NE SUCCINATE 47814553671 No Longer Active Edilberto Marino DO Active PENICILLIN V POTASSIUM 500 MG TAB 1 four times a day 2 PENICILLIN V POTASSIUM 39415199333 No Longer Active Edilberto Mraino DO Active DOXYCYCLINE HYCLATE 100 MG CAPS Take one (1) tablet by mouth twice a day DOXYCYCLINE HYCLATE 35448229983 No Longer Active Ronnie Galvan MD Active HYDROCODONE-ACETAMINOPHEN 5-325 MG TABS 1 po q 6hr PRN Pain 2011 HYDROCODONE-ACETAMINOPHEN 83131284948 No Longer Active Patri joan Perez RN Active BACTRIM DS 800-160 MG TAB 1 tab by mouth twice daily 2 TRIMETHOPRIM-SULFAMETHOXAZOLE 09925238152 No Longer Active Kalpesh Dong MD Active LORTAB 5 5-500 MG TABS 1/2 to 1 tablet by mouth go ry 4 hours as needed for pain HYDROCODONE-ACETAMINOPHEN 57416971699 No Longer Active Kalpesh Dong MD Active GENERESS FE 0.8-25 MG-MCG CHEW Take one by mouth daily NORETHIN-ETH ESTRADIOL-FE 43150165658 No Longer Active Kalpesh Dong MD Active HYDROCODONE-ACETAMINOPHEN 7.5-500 MG TABS 1-2 every 4 hours as needed HYDROCODONE-ACETAMINOPHEN 33805895126 No Longer Activ e Kalpesh Dong MD Active FERROUS SULFATE 325 (65 FE) MG TABS 1 tablet by mouth twice yung y FERROUS SULFATE 13664729312 No Longer Active Kalpesh Dong MD Active IBUPROFEN 600 MG TAB 1 po q6-8hr PRN IBUPROFEN 20972975998 No Longer Active Kalpesh Dong MD Active SPIRONOLACTONE 25 MG TAB 1 tablet by mouth daily 01/22 SPIRONOLACTONE 15804934351 No Longer Active Kalpesh Dong MD Acti ve HYDROCODONE-ACETAMINOPHEN 7.5-325 MG TABS 1 po QID PRN Pain 2011 HYDROCODONE-ACETAMINOPHEN 96705202871 No Longer Active Kalpesh Dong MD Active CLINDAMYCIN HCL 300 MG CAPS 1 po q6hr x 7 days CLINDAMYCIN HCL 39514721089 No Longer Active Edilberto Marino DO Active PREDNISONE 20 MG TAB 2 tabs daily for 4 days, 1 t ab daily for 4 days, 1/2 tab daily for 4 days PREDNISONE 64499270714 No Longer Active Edilberto Marino DO Active PERCOCET 5-325 MG TABS 1 tablet by mouth every 6 hours as ne eded for pain OXYCODONE-ACETAMINOPHEN 45071492781 No Longer Active Abdirahman Rios MD Active VITAMINS TABS Take one by mouth daily MV & MIN W/FE-FA TABS 21950370125 No Longer Active Abdirahman Rios MD Active LUIS 3-0.02 MG TABS 1 tablet by mouth daily as directed DROSPIRENONE-ETHINYL ESTRADIOL 39359172851 No Longer Active Abdirahman Rios MD Active LORATADINE 10 MG TABS 1 tablet by mouth daily L ORATADINE 41388033406 No Longer Active Kalpesh Dong MD Active HYDROCODONE-ACETAMINOPHEN 5-325 MG TABS 1 po q 6hr PRN Pain 2010 HYDROCODONE-ACETAMINOPHEN 47459183947 No Longer Active Edilberto Marino DO Active BACTRIM DS 800-160 MG TAB 1 tab by mouth twice daily 2 TRIMETHOPRIM-SULFAMETHOXAZOLE 46386419009 No Longer Active Abdirahman Rios MD Active 28-0.8 MG TABS Take one by mouth daily 09/20 VIT-FE FUMARATE-FA 16049380150 No Longer Active Abdirahman Rios MD Active CIPRO 500 MG TAB 1 tablet by mouth twice daily CIPROFLOXACIN HCL 64245704080 No Longer Active Abdirahman Rios MD Active BENADRYL 25 MG CAP 1 po q8hr PRN Congestion DIPHENHYDRAMINE HCL 18196455224 No Longer Active Abdirahman Rios MD Active ZOLOFT 50 MG TAB 1 po qd SERTRALINE HCL 022875 25516 No Longer Active Abdirahman Rios MD Active AMOXICILLIN 875 MG TABS 1 tab by mouth twice daily 201 08/09/13 AMOXICILLIN 16220657670 No Longer Active Abdirahman Rios MD Activ e AMOXICILLIN 875 MG TABS 1 tab by mouth twice daily 201 07/19/27 AMOXICILLIN 02666783648 No Longer Active Abdirahman Rios MD Activ e BACTRIM DS 800-160 MG TAB 2 tab by mouth twice daily 2 TRIMETHOPRIM-SULFAMETHOXAZOLE 43684949888 No Longer Active Abdirahman Rios MD Active KEFLEX 500 MG CAP 1 po tid x 10 days CEPHALEXIN 68070660729 No Longer Active Abdirahman Rios MD Active AMOXICILLIN 875 MG TABS 1 tab by mouth twice daily 201 07/18/07 AMOXICILLIN 84549312447 No Longer Active Abdirahman Rios MD Activ e BACTRIM DS 800-160 MG TAB 2 tab by mouth twice daily 2 BACTRIM DS 800-160 MG TAB TRIMETHOPRIM-SULFAMETHOXAZOLE Inactive ZOLOFT 50 MG TAB 1 po qd ZOLOFT 50 MG TAB 3129 41 SERTRALINE HCL Inactive BENADRYL 25 MG CAP 1 po q8hr PRN Congestion BENADRYL 25 MG CAP 1056779 DIPHENHYDRAMINE HCL Inactive 28-0.8 MG TABS Take one by mouth daily 09/20 28-0.8 MG TABS VIT-FE FUMARATE-FA Inactive HYDROCODONE-ACETAMINOPHEN 5-325 MG TABS 1 po q 6hr PRN Pain 2010 HYDROCODONE-ACETAMINOPHEN 5-325 MG TABS 696284 HYDROCODONE-ACETAMINOPHEN Inactive LORATADINE 10 MG TABS 1 tablet by mouth daily LORATADINE 10 MG TABS 438053 LORATADINE Inactive LUIS 3-0.02 MG TABS 1 tablet by mouth daily as directed LUIS 3-0.02 MG TABS DROSPIRENONE-ETHINYL ESTRADIOL Inactive VITAMINS TABS Take one by mouth daily VITAMINS TABS MV & MIN W/FE-FA TABS Inactive PERCOCET 5-325 MG TABS 1 tablet by mouth every 6 hours as ne eded for pain PERCOCET 5-325 MG TABS 5381105 OXYCODONE-ACETAMIN OPHEN Inactive PREDNISONE 20 MG TAB 2 tabs daily for 4 days, 1 t ab daily for 4 days, 1/2 tab daily for 4 days PREDNISONE 20 MG TAB 123887 PREDNISON E Inactive CLINDAMYCIN HCL 300 MG CAPS 1 po q6hr x 7 days CLINDAMYCIN HCL 300 MG CAPS 787498 CLINDAMYCIN HCL Inactive HYDROCODONE-ACETAMINOPHEN 7.5-325 MG TABS 1 po QID PRN Pain 2011 HYDROCODONE-ACETAMINOPHEN 7.5-325 MG TABS 771064 HYDROCODONE-ACETAMINOPHEN Inactive SPIRONOLACTONE 25 MG TAB 1 tablet by mouth daily 01/22 SPIRONOLACTONE 25 MG TAB 803558 SPIRONOLACTONE Inactive IBUPROFEN 600 MG TAB 1 po q6-8hr PRN IBUPROFEN 600 MG TAB 974822 IBUPROFEN Inactive FERROUS SULFATE 325 (65 FE) MG TABS 1 tablet by mouth twice yung y FERROUS SULFATE 325 (65 FE) MG TABS 221182 FERROUS SULF ATE Inactive HYDROCODONE-ACETAMINOPHEN 7.5-500 MG [...] PRN Pain 2011 HYDROCODONE-ACETAMINOPHEN 5-325 MG TABS 647649 HYDROCODONE-ACETAMINOPHEN Inactive DOXYCYCLINE HYCLATE 100 MG CAPS Take one (1) tablet by mouth twice a day DOXYCYCLINE HYCLATE 100 MG CAPS 491081 DOXYCYCLINE HYCLATE Inactive PENICILLIN V POTASSIUM 500 MG TAB 1 four times a day 2 PENICILLIN V POTASSIUM 500 MG TAB 456805 PENICILLIN V POTASSIUM Siri ctive PRISTIQ 50 MG [id number] 1 po qd PRISTIQ 50 MG [id number] DESVENLAFAXINE SUCCINATE Inactive TYLENOL/CODEINE #3 300-30 MG TAB 1-2 po q6hr PRN Pain TYLENOL/CODEINE #3 300-30 MG TAB 061648 ACETAMINOPHEN-CODEINE Inact krishna CEPHALEXIN 500 MG TABS Take one by mouth four times daily, morning, noon, early evening and bedtime. CEPHALEXIN 500 MG TABS 817023 CEPHALEXIN Inactive LORTAB 5 5-500 MG TABS 1/2 to 1 tablet by mouth go ry 6 hours as needed for pain LORTAB 5 5-500 MG TABS HYDROCODONE-A CETAMINOPHEN Inactive AMITRIPTYLINE HCL 25 MG TAB 1 tab by mouth daily 60 minutes before bedtime AMITRIPTYLINE HCL 25 MG TAB 810527 AMITRIPTYLINE HCL Inactive AMOXICILLIN 500 MG TABS 2 tabs PO bid x 10 d 7 AMOXICILLIN 500 MG TABS 348515 AMOXICILLIN Inactive IMPLANON 68 MG IMPL IMPLANTED IN LEFT ARM IMPLANON 68 MG IMPL ETONOGESTREL Inactive HYDROCODONE-ACETAMINOPHEN 5-325 MG TABS 1 PO tid PRN pain 5 HYDROCODONE-ACETAMINOPHEN 5-325 MG TABS 657557 HYDROCODONE-ACETAMIN OPHEN Inactive BACTRIM DS 800-160 MG TAB 1 tab by mouth twice daily 2 BACTRIM DS 800-160 MG TAB TRIMETHOPRIM-SULFAMETHOXAZOLE Inac tive CEPHALEXIN 500 MG CAPS 1 PO bid x 7 days CEPHALEXIN 500 MG CAPS 086025 CEPHALEXIN Inactive HYDROCODONE-ACETAMINOPHEN 5-325 MG TABS 1 tab by mouth every 6 hours as needed HYDROCODONE-ACETAMINOPHEN 5-325 MG TABS 690703 HYDROCODONE-ACETAMINOPHEN Inactive PROMETHAZINE-CODEINE 6.25-10 MG/5ML SYRP 1 tsp every 6 hrs prn c ough PROMETHAZINE-CODEINE 6.25-10 MG/5ML SYRP 015851 PROMETH AZINE-CODEINE Inactive IBUPROFEN 800 MG TAB 1 pill three times daily as needed for pain IBUPROFEN 800 MG TAB 097528 IBUPROFEN Inactive KEFLEX 500 MG CAP 1 tab po tid KEFLEX 500 MG CAP 921238 CEPHALEXIN Inactive HYDROCODONE-ACETAMINOPHEN 7.5-325 MG TABS 1 four times a day as needed for pain HYDROCODONE-ACETAMINOPHEN 7.5-325 MG TABS 521887 HYDROCODONE-ACETAMINOPHEN Inactive BACTRIM DS 800-160 MG TABS by mouth twice a day 11/05 BACTRIM DS 800-160 MG TABS SULFAMETHOXAZOLE-TRIMETHOPRIM Inactive IBUPROFEN 800 MG TABS 1 tid prn IBUPROFEN 800 MG TABS 392673 IBUPROFEN Inactive ENDOCET 10-325 MG TABS 1 q 6 hr prn ENDOC ET 10-325 MG TABS 8351787 OXYCODONE-ACETAMINOPHEN Inactive HYDROCODONE-ACETAMINOPHEN 7.5-325 MG TABS 1 by mouth e very 6 hours as needed for pain HYDROCODONE-ACETAMINOPHEN 7.5-325 MG TABS 883816 HYDROCODONE-ACETAMINOPHEN Inactive PERCOCET 7.5-325 MG TABS 1 PO q 8 hrs PRN pain PERCOCET 7.5-325 MG TABS 1029186 OXYCODONE-ACETAMINOPHEN Inactive AMOXICILLIN 875 MG TABS 1 tab by mouth twice daily 201 07/18/07 AMOXICILLIN 875 MG TABS 592566 AMOXICILLIN Inactive KEFLEX 500 MG CAP 1 po tid x 10 days KEFLEX 500 MG CAP 441638 CEPHALEXIN Inactive AMOXICILLIN 875 MG TABS 1 tab by mouth twice daily 201 07/19/27 AMOXICILLIN 875 MG TABS 528948 AMOXICILLIN Inactive AMOXICILLIN 875 MG TABS 1 tab by mouth twice daily 201 08/09/13 AMOXICILLIN 875 MG TABS 419174 AMOXICILLIN Inactive CIPRO 500 MG TAB 1 tablet by mouth twice daily CIPRO 500 MG TAB 584682 CIPROFLOXACIN HCL Inactive BACTRIM DS 800-160 MG TAB 1 tab by mouth twice daily 2 BACTRIM DS 800-160 MG TAB TRIMETHOPRIM-SULFAMETHOXAZOLE Inac tive LEVAQUIN 500 MG TABS 1 PO q day x 7 days LEVAQUIN 500 MG TABS 796012 LEVOFLOXACIN Inactive CLINDAMYCIN HCL 300 MG CAPS 1 po QID x 7 days CLINDAMYCIN HCL 300 MG CAPS 793209 CLINDAMYCIN HCL Inactive Advance Directives Directive Description Start Date PERMISSION TO SHARE Immunizations Vaccine Administration Date Value Standard Alf cription Seasonal influenza vaccine, injectable, containing preservative, for > 3 years old (Afluria, FluLaval, Fluzone, Fluvirin, Fluarix, Agriflu(>= 18 yo)) Fluzone (>3 yrs.) [[id number]] Influenza, seasonal, inject able Seasonal influenza vaccine, injectable, preservative free, for > 3 years old (Afluria, FluLaval, Fluzone, Fluvirin, Fluarix, Agriflu(>= 18 yo)) Fluzone preservative free (>3 yrs.) [[id number]] Influenza, seasonal, injectable, preservative free Seasonal influenza vaccine, injectable, containing preservative, for > 3 years old (Afluria, FluLaval, Fluzone, Fluvirin, Fluarix, Agriflu(>= 18 yo)) Fluzone (>3 yrs.) [[id number]] Influenza, seasonal, inject able Seasonal influenza vaccine, injectable, containing preservative, for > 3 years old (Afluria, FluLaval, Fluzone, Fluvirin, Fluarix, Agriflu(>= 18 yo)) Fluzone (>3 yrs.) [[id number]] Influenza, seasonal, inject able dT (Diphtheria and [...] ... - Chemistry sodium, serum 140 mmol/L 078-405 4221/02/24 potassium, serum 4.3 mmol/L 3.5-5.2 chloride, serum [...] 4.3-6.0 Lab Report: T3, TOTAL, INSULIN - [employer] triiodothyronine, serum 78 ng/dL 76-181 Lab [...] mg/dL Encounters Code Encounter Date Provider Facility CPT-89621 Level 3 Est. Patient 19:34:46 CDT Shola MCGILL [facility] CPT-78920 Level 3 Est. Patient 14:19:37 CDT Abdirahman Rios MD [facility] CPT-84745 Level 3 Est. Patient 14:11:58 CDT Kalpesh goins MD [facility] CPT-28529 Level 3 Est. Patient 16:50:00 CDT Michelle MERCADO [facility] CPT-85488 Level 3 Est. Patient 17:11:32 ELECTRONIC SYSTEMS SECURITY ASSESSMENT Brandie bates MD PhD [facility] CPT-38984 Level 3 Est. Patient 16:31:47 ELECTRONIC SYSTEMS SECURITY ASSESSMENT Shola MCGILL [facility] CPT-94681 Level 3 Est. Patient 17:51:10 ELECTRONIC SYSTEMS SECURITY ASSESSMENT Abhinav Galvan MD [facility] CPT-32537 Level 4 Est. Patient 12:54:56 ELECTRONIC SYSTEMS SECURITY ASSESSMENT Kalpesh goins MD [facility]-20889 Level 4 Est. Patient 12:53:56 ELECTRONIC SYSTEMS SECURITY ASSESSMENT Kalpesh goins MD [facility]-90731 Level 3 Est. Patient 17:56:58 CDT Shola Wright [facility] CPT-21759 Level 3 Est. Patient 14:26:20 CDT Janak butcher [facility] CPT-22506 Level 3 Est. Patient 09:38:41 CDT Shola Thao [facility] CPT-38942 Level 3 Est. Patient 14:45:26 CDT Edilberto tiwari [facility] CPT-26952 Level 3 Est. Patient 10:51:33 CD[facility] Patient 11:57:55 ELECTRONIC SYSTEMS SECURITY ASSESSMENT Shola Houghsabi [facility] CPT-89169 Level 3 Est. Patient 09:53:33 ELECTRONIC SYSTEMS SECURITY ASSESSMENT Edilberto tiwari [facility] CPT-99113 Level 3 Est. Patient 14:42:54 ELECTRONIC SYSTEMS SECURITY ASSESSMENT Abhinav Galvan MD [facility]-34990 Level 3 Est. Patient 15:10:02 CDT Janak butcher [facility] CPT-95362 Level 3 Est. Patient 15:20:20 CDT Theo dennis MD [facility]-46575 Level 2 Est. Patient 14:08:57 CDT Kalpesh goins MD [facility]-12015 Level 3 Est. Patient 13:56:19 CDT Abdirahman Rios MD [facility] CPT-60948 Level 3 Est. Patient 13:59:37 CDT Abdirahman Rios MD [facility] CPT-63815 Level 2 Est. Patient 14:44:59 CDT Kalpesh goins MD [facility] CPT-85778 Level 3 Est. Patient 06:06:23 CDT Edilberto tiwari DO [facility] CPT-82929 Level 3 Est. Patient 15:23:54 CDT Abdirahman Rios MD [facility] CPT-10988 Level 3 Est. Patient 15:43:49 CDT Abdirahman Rios MD [facility] CPT-44770 Level 3 Est. Patient 12:46:47 ELECTRONIC SYSTEMS SECURITY ASSESSMENT Abdirahman Rios MD [facility] CPT-64129 Level 3 Est. Patient 08:13:35 ELECTRONIC SYSTEMS SECURITY ASSESSMENT Abdirahman Rios MD [facility] CPT-98783 Level 2 Est. Patient 09:36:42 ELECTRONIC SYSTEMS SECURITY ASSESSMENT Abdirahman Rios MD [facility] CPT-75325 Level 3 Est. Patient 10:56:43 CDT Abdirahman Rios MD [facility] CPT-63257 Level 3 Est. Patient 18:24:52 CDT Abdirahman Rios MD [facility] CPT-00535 Level 3 Est. Patient 13:27:22 CDT Abdirahman Rios MD [facility] Procedures Code Procedure Name Date Entry Date Standard Desc ription CPT-61366 Immunization Single Admin 16:41:53 CDT 2013 CPT-28475 Fluzone Quadrivalent Intramuscular Suspe nsion 0.5 ML 16:41:53 CDT CPT-OV Office Visit 16:39:18 CDT CPT-OV Office Visit 16:16:36 CDT CPT-OV Office Visit 15:34:48 CDT CPT-31335 Postop F/U Visit 14:50:12 CDT CPT-72381 Postop F/U Visit 14:41:10 CDT CPT-01869 Venipuncture Draw Fee 11:38:04 ELECTRONIC SYSTEMS SECURITY ASSESSMENT CPT-48895 Postop F/U Visit 19:02:59 ELECTRONIC SYSTEMS SECURITY ASSESSMENT CPT-07215 Postop F/U Visit 12:04:54 ELECTRONIC SYSTEMS SECURITY ASSESSMENT CPT-74194 Administration single or combination vac cine inc oral 15:56:43 CDT CPT-91321 Influenza split virus > age 3 15:56:43 CDT CPT-53330 Hand comp min 3V 14:25:19 CDT CPT-12255 Postop F/U Visit 21:40:51 CDT CPT-23368 Postop F/U Visit 10:58:43 CDT CPT-94544 Administration single or combination vac cine inc oral 12:33:54 ELECTRONIC SYSTEMS SECURITY ASSESSMENT CPT-01649 Influenza Preservative Free split virus >age 3 12:33:54 ELECTRONIC SYSTEMS SECURITY ASSESSMENT CPT-12406 Administration single or combination vac cine inc oral 09:30:51 CDT CPT-66936 Influenza split virus > age 3 09:30:51 CDT CPT-49681 Postop F/U Visit 15:14:53 CDT CPT-88204 Postop F/U Visit 13:50:14 CDT CPT-18026 Postop F/U Visit 13:34:52 CDT CPT-OV Office Visit 16:55:03 CDT CPT-40557 Armstrong of cervix w bx ECC 13:32:50 CDT 10/19 CPT-J1885 Toradol 60 mg (Ketorolac) 15:31:59 CDT 2011 CPT-J1885 Toradol 60 mg (Ketorolac) 15:23:54 CDT 2011 CPT-20233 Visit 11:34:37 ELECTRONIC SYSTEMS SECURITY ASSESSMENT CPT-01011 Visit 10:52:39 ELECTRONIC SYSTEMS SECURITY ASSESSMENT CPT-95916 Visit 10:12:02 ELECTRONIC SYSTEMS SECURITY ASSESSMENT CPT-64094 Visit 11:22:43 ELECTRONIC SYSTEMS SECURITY ASSESSMENT CPT-64042 Visit 11:24:12 ELECTRONIC SYSTEMS SECURITY ASSESSMENT CPT-23322 Visit 10:47:05 ELECTRONIC SYSTEMS SECURITY ASSESSMENT CPT-OV Office Visit 10:26:16 ELECTRONIC SYSTEMS SECURITY ASSESSMENT CPT-OV Office Visit 15:34:31 ELECTRONIC SYSTEMS SECURITY ASSESSMENT CPT-10270 Visit 10:42:08 ELECTRONIC SYSTEMS SECURITY ASSESSMENT CPT-86786 Visit 10:52:45 ELECTRONIC SYSTEMS SECURITY ASSESSMENT CPT-000 Give Appropriate Flu Vaccine 16:56:41 CDT 2 CPT-95562 Administration single or combination vac cine inc oral 10:33:21 CDT CPT-48004 Influenza split virus > age 3 10:33:21 CDT CPT-64079 Visit 13:23:09 CDT CPT-71610 Visit 18:24:52 CDT CPT-22730 Sono OB comp > 14 weeks 12:07:49 CDT 04/07
--- OUTSIDE RECORDS SUMMARY | 2020-01-18 16:49 | XMS REPORT | Clinical Summary ---
Author Author Avery, Jeri Rashid Organization [facility] Address Unknown Phone Unavailable Allergies, Adverse [...] GESTATIONAL AGE ICD-656.60 Inactive Abdirahman Rios MD , INCIDENTAL PROBLEM ICD-V22.2 Inacti ve Abdirahman Rios MD MASTALGIA ICD-611.71 Inactive Abdirahman Carr BRONCHITIS NOT SPECIFIED ACUTE OR CHRONIC ICD-490 8 Inactive Abdirahman Rios MD ABDOMINAL ABSCESS ICD-682.2 Inactive [...] DRUG MONITORING ICD-V58.83 Inactive Good Julian MD FAMILY HISTORY OF [...] 15 MG TABS 1 tab daily MELOXICAM [id number] Ac jason Julian MD Active PERCOCET 7.5-325 MG TABS 1 PO q 8 hrs PRN pain OXYCODONE-ACETAMINOPHEN 35230463515 No Longer Active Shola MCGILL Active HYDROCODONE-ACETAMINOPHEN 10-325 MG TABS 1 by mouth ev chaka 8 hours as needed for pain HYDROCODONE-ACETAMINOPHEN 43373511521 Active Shola MCGILL Active HYDROCODONE-ACETAMINOPHEN 7.5-325 MG TABS 1 by mouth e very 6 hours as needed for pain HYDROCODONE-ACETAMINOPHEN 14873937820 No Longer Active Good Julian MD Active LC-5 LIDOCAINE 5 % CREA apply 1 time daily to affected area LIDOCAINE (ANORECTAL) 35051704748 Active Shola MCGILL Active CLINDAMYCIN HCL 300 MG CAPS 1 po QID x 7 days CLINDAMYCIN HCL 68927308023 No Longer Active Abdirahman Rios MD Activ e BACTRIM DS 800-160 MG TABS 1 po BID x 7 days 5 SULFAMETHOXAZOLE-TRIMETHOPRIM 57448594905 No Longer Active Abdirahman Rios MD Active ENDOCET 10-325 MG TABS 1 q 6 hr prn OXYCODONE-ACETAMINOPHEN 51421878639 No Longer Active Abdirahman Rios MD Active IBUPROFEN 800 MG TABS 1 tid prn IBUPROFEN 880530 12002 No Longer Active Abdirahman Rios MD Active BACTRIM DS 800-160 MG TABS by mouth twice a day 11/05 SULFAMETHOXAZOLE-TRIMETHOPRIM 09795529502 No Longer Active Good Julian MD Active HYDROCODONE-ACETAMINOPHEN 7.5-325 MG TABS 1 four times a day as needed for pain HYDROCODONE-ACETAMINOPHEN 14309975240 No Longer Activ e Good Julian MD Active KEFLEX 500 MG CAP 1 tab po tid CEPHALEXIN 095399 77999 No Longer Active Hira Moser APRN Active IBUPROFEN 800 MG TAB 1 pill three times daily as needed for pain IBUPROFEN 43628287391 No Longer Active Kalpesh Dong MD Active PROMETHAZINE-CODEINE 6.25-10 MG/5ML SYRP 1 tsp every 6 hrs prn c ough PROMETHAZINE-CODEINE 92106258585 No Longer Active Kalpesh Carr Active ALPRAZOLAM 0.5 MG TABS 1 PO bid PRN ALPRAZOLAM 321173 24815 Active Shola MCGILL Active HYDROCODONE-ACETAMINOPHEN 5-325 MG TABS 1 tab by mouth every 6 hours as needed HYDROCODONE-ACETAMINOPHEN 20623040894 No Longer Activ e Shola MCGILL Active CEPHALEXIN 500 MG CAPS 1 PO bid x 7 days CEPHAL EXIN 20777150328 No Longer Active Shola MCGILL Active BACTRIM DS 800-160 MG TAB 1 tab by mouth twice daily 2 TRIMETHOPRIM-SULFAMETHOXAZOLE 53035026993 No Longer Active Kalpesh Dong MD Active HYDROCODONE-ACETAMINOPHEN 5-325 MG TABS 1 PO tid PRN pain 5 HYDROCODONE-ACETAMINOPHEN 16208326597 No Longer Active Abhinav Galvan MD Active IMPLANON 68 MG IMPL IMPLANTED IN LEFT ARM ETONO GESTREL 87356880447 No Longer Active Jielias Perazal VET TECH Active AMOXICILLIN 500 MG TABS 2 tabs PO bid x 10 d AM OXICILLIN 30392637734 No Longer Active Kalpesh Dong MD Active LEVAQUIN 500 MG TABS 1 PO q day x 7 days LEVOFL OXACIN 53143984763 No Longer Active Shola MCGLIL Active PROAIR HFA 108 (90 BASE) MCG/ACT AERS 2 puff q 4-6 hrs PRN ALBUTEROL SULFATE 08737135933 Active Shola MCGILL Acti ve FIORICET 50-325-40 MG TABS 2 PO q 8 hrs PRN FOSTER [id number] Active Shola MCGILL Active AMITRIPTYLINE HCL 25 MG TAB 1 tab by mouth daily 60 minutes before bedtime AMITRIPTYLINE HCL 08887857116 No Longer Active Shola MCGILL Active LORTAB 5 5-500 MG TABS 1/2 to 1 tablet by mouth go ry 6 hours as needed for pain HYDROCODONE-ACETAMINOPHEN 05060878849 No Longer Active Shola MCGILL Active CEPHALEXIN 500 MG TABS Take one by mouth four times daily, morning, noon, early evening and bedtime. CEPHALEXIN 35578495657 No Long er Active Hira Perazaabel VET TECH Active TYLENOL/CODEINE #3 300-30 MG TAB 1-2 po q6hr PRN Pain ACETAMINOPHEN-CODEINE 37344063959 No Longer Active Edilberto Marino DO Active PRISTIQ 50 MG [id number] 1 po qd DESVENLAFAXI NE SUCCINATE 31060912850 No Longer Active Edilberto Marino DO Active PENICILLIN V POTASSIUM 500 MG TAB 1 four times a day 2 PENICILLIN V POTASSIUM 77180690167 No Longer Active Edilberto Marino DO Active DOXYCYCLINE HYCLATE 100 MG CAPS Take one (1) tablet by mouth twice a day DOXYCYCLINE HYCLATE 54176496107 No Longer Active Ronnie Galvan MD Active HYDROCODONE-ACETAMINOPHEN 5-325 MG TABS 1 po q 6hr PRN Pain 2011 HYDROCODONE-ACETAMINOPHEN 28680812799 No Longer Active Patri joan Perez RN Active BACTRIM DS 800-160 MG TAB 1 tab by mouth twice daily 2 TRIMETHOPRIM-SULFAMETHOXAZOLE 25712134204 No Longer Active Kalpesh Dong MD Active LORTAB 5 5-500 MG TABS 1/2 to 1 tablet by mouth go ry 4 hours as needed for pain HYDROCODONE-ACETAMINOPHEN 67891766054 No Longer Active Kalpesh Dong MD Active GENERESS FE 0.8-25 MG-MCG CHEW Take one by mouth daily NORETHIN-ETH ESTRADIOL-FE 69719315953 No Longer Active Kalpesh Dong MD Active HYDROCODONE-ACETAMINOPHEN 7.5-500 MG TABS 1-2 every 4 hours as needed HYDROCODONE-ACETAMINOPHEN 45908336900 No Longer Activ e Kalpesh Dong MD Active FERROUS SULFATE 325 (65 FE) MG TABS 1 tablet by mouth twice yung y FERROUS SULFATE 05047700026 No Longer Active Kalpesh Dong MD Active IBUPROFEN 600 MG TAB 1 po q6-8hr PRN IBUPROFEN 33031672655 No Longer Active Kalpesh Dong MD Active SPIRONOLACTONE 25 MG TAB 1 tablet by mouth daily 01/22 SPIRONOLACTONE 04465210497 No Longer Active Kalpesh Dong MD Acti ve HYDROCODONE-ACETAMINOPHEN 7.5-325 MG TABS 1 po QID PRN Pain 2011 HYDROCODONE-ACETAMINOPHEN 76927495549 No Longer Active Kalpesh Dong MD Active CLINDAMYCIN HCL 300 MG CAPS 1 po q6hr x 7 days CLINDAMYCIN HCL 18544098654 No Longer Active Edilberto Marino DO Active PREDNISONE 20 MG TAB 2 tabs daily for 4 days, 1 t ab daily for 4 days, 1/2 tab daily for 4 days PREDNISONE 56381150628 No Longer Active Edilberto Marino DO Active PERCOCET 5-325 MG TABS 1 tablet by mouth every 6 hours as ne eded for pain OXYCODONE-ACETAMINOPHEN 26837769454 No Longer Active Abdirahman Rios MD Active VITAMINS TABS Take one by mouth daily MV & MIN W/FE-FA TABS 29413176377 No Longer Active Abdirahman Rios MD Active LUIS 3-0.02 MG TABS 1 tablet by mouth daily as directed DROSPIRENONE-ETHINYL ESTRADIOL 08675327959 No Longer Active Abdirahman Rios MD Active LORATADINE 10 MG TABS 1 tablet by mouth daily L ORATADINE 61687956594 No Longer Active Kalpesh Dong MD Active HYDROCODONE-ACETAMINOPHEN 5-325 MG TABS 1 po q 6hr PRN Pain 2010 HYDROCODONE-ACETAMINOPHEN 08352506847 No Longer Active Edilberto Marino DO Active BACTRIM DS 800-160 MG TAB 1 tab by mouth twice daily 2 TRIMETHOPRIM-SULFAMETHOXAZOLE 29817560501 No Longer Active Abdirahman Rios MD Active 28-0.8 MG TABS Take one by mouth daily 09/20 VIT-FE FUMARATE-FA 83406578604 No Longer Active Abdirahman Rios MD Active CIPRO 500 MG TAB 1 tablet by mouth twice daily CIPROFLOXACIN HCL 55191010479 No Longer Active Abdirahman Rios MD Active BENADRYL 25 MG CAP 1 po q8hr PRN Congestion DIPHENHYDRAMINE HCL 04162305793 No Longer Active Abdirahman Rios MD Active ZOLOFT 50 MG TAB 1 po qd SERTRALINE HCL 980224 30797 No Longer Active Abdirahman Rios MD Active AMOXICILLIN 875 MG TABS 1 tab by mouth twice daily 201 08/09/13 AMOXICILLIN 93579056202 No Longer Active Abdirahman Rios MD Activ e AMOXICILLIN 875 MG TABS 1 tab by mouth twice daily 201 07/19/27 AMOXICILLIN 20169520182 No Longer Active Abdirahman Rios MD Activ e BACTRIM DS 800-160 MG TAB 2 tab by mouth twice daily 2 TRIMETHOPRIM-SULFAMETHOXAZOLE 91400009821 No Longer Active Abdirahman Rios MD Active KEFLEX 500 MG CAP 1 po tid x 10 days CEPHALEXIN 11218246606 No Longer Active Abdirahman Rios MD Active AMOXICILLIN 875 MG TABS 1 tab by mouth twice daily 201 07/18/07 AMOXICILLIN 02744735458 No Longer Active Abdirahman Rios MD Activ e BACTRIM DS 800-160 MG TAB 2 tab by mouth twice daily 2 BACTRIM DS 800-160 MG TAB TRIMETHOPRIM-SULFAMETHOXAZOLE Inactive ZOLOFT 50 MG TAB 1 po qd ZOLOFT 50 MG TAB 3129 41 SERTRALINE HCL Inactive BENADRYL 25 MG CAP 1 po q8hr PRN Congestion BENADRYL 25 MG CAP 1938597 DIPHENHYDRAMINE HCL Inactive 28-0.8 MG TABS Take one by mouth daily 09/20 28-0.8 MG TABS VIT-FE FUMARATE-FA Inactive HYDROCODONE-ACETAMINOPHEN 5-325 MG TABS 1 po q 6hr PRN Pain 2010 HYDROCODONE-ACETAMINOPHEN 5-325 MG TABS 432325 HYDROCODONE-ACETAMINOPHEN Inactive LORATADINE 10 MG TABS 1 tablet by mouth daily LORATADINE 10 MG TABS 691124 LORATADINE Inactive LUIS 3-0.02 MG TABS 1 tablet by mouth daily as directed LUIS 3-0.02 MG TABS DROSPIRENONE-ETHINYL ESTRADIOL Inactive VITAMINS TABS Take one by mouth daily VITAMINS TABS MV & MIN W/FE-FA TABS Inactive PERCOCET 5-325 MG TABS 1 tablet by mouth every 6 hours as ne eded for pain PERCOCET 5-325 MG TABS 2819739 OXYCODONE-ACETAMIN OPHEN Inactive PREDNISONE 20 MG TAB 2 tabs daily for 4 days, 1 t ab daily for 4 days, 1/2 tab daily for 4 days PREDNISONE 20 MG TAB 598100 PREDNISON E Inactive CLINDAMYCIN HCL 300 MG CAPS 1 po q6hr x 7 days CLINDAMYCIN HCL 300 MG CAPS 853900 CLINDAMYCIN HCL Inactive HYDROCODONE-ACETAMINOPHEN 7.5-325 MG TABS 1 po QID PRN Pain 2011 HYDROCODONE-ACETAMINOPHEN 7.5-325 MG TABS 796383 HYDROCODONE-ACETAMINOPHEN Inactive SPIRONOLACTONE 25 MG TAB 1 tablet by mouth daily 01/22 SPIRONOLACTONE 25 MG TAB 819056 SPIRONOLACTONE Inactive IBUPROFEN 600 MG TAB 1 po q6-8hr PRN IBUPROFEN 600 MG TAB 112936 IBUPROFEN Inactive FERROUS SULFATE 325 (65 FE) MG TABS 1 tablet by mouth twice yung y FERROUS SULFATE 325 (65 FE) MG TABS 601729 FERROUS SULF ATE Inactive HYDROCODONE-ACETAMINOPHEN 7.5-500 MG [...] PRN Pain 2011 HYDROCODONE-ACETAMINOPHEN 5-325 MG TABS 052574 HYDROCODONE-ACETAMINOPHEN Inactive DOXYCYCLINE HYCLATE 100 MG CAPS Take one (1) tablet by mouth twice a day DOXYCYCLINE HYCLATE 100 MG CAPS 571405 DOXYCYCLINE HYCLATE Inactive PENICILLIN V POTASSIUM 500 MG TAB 1 four times a day 2 PENICILLIN V POTASSIUM 500 MG TAB 354787 PENICILLIN V POTASSIUM Siri ctive PRISTIQ 50 MG [id number] 1 po qd PRISTIQ 50 MG [id number] DESVENLAFAXINE SUCCINATE Inactive TYLENOL/CODEINE #3 300-30 MG TAB 1-2 po q6hr PRN Pain TYLENOL/CODEINE #3 300-30 MG TAB 641248 ACETAMINOPHEN-CODEINE Inact krishna CEPHALEXIN 500 MG TABS Take one by mouth four times daily, morning, noon, early evening and bedtime. CEPHALEXIN 500 MG TABS 272981 CEPHALEXIN Inactive LORTAB 5 5-500 MG TABS 1/2 to 1 tablet by mouth go ry 6 hours as needed for pain LORTAB 5 5-500 MG TABS HYDROCODONE-A CETAMINOPHEN Inactive AMITRIPTYLINE HCL 25 MG TAB 1 tab by mouth daily 60 minutes before bedtime AMITRIPTYLINE HCL 25 MG TAB 637627 AMITRIPTYLINE HCL Inactive AMOXICILLIN 500 MG TABS 2 tabs PO bid x 10 d 7 AMOXICILLIN 500 MG TABS 996079 AMOXICILLIN Inactive IMPLANON 68 MG IMPL IMPLANTED IN LEFT ARM IMPLANON 68 MG IMPL ETONOGESTREL Inactive HYDROCODONE-ACETAMINOPHEN 5-325 MG TABS 1 PO tid PRN pain 5 HYDROCODONE-ACETAMINOPHEN 5-325 MG TABS 279843 HYDROCODONE-ACETAMIN OPHEN Inactive BACTRIM DS 800-160 MG TAB 1 tab by mouth twice daily 2 BACTRIM DS 800-160 MG TAB TRIMETHOPRIM-SULFAMETHOXAZOLE Inac tive CEPHALEXIN 500 MG CAPS 1 PO bid x 7 days CEPHALEXIN 500 MG CAPS 609175 CEPHALEXIN Inactive HYDROCODONE-ACETAMINOPHEN 5-325 MG TABS 1 tab by mouth every 6 hours as needed HYDROCODONE-ACETAMINOPHEN 5-325 MG TABS 084589 HYDROCODONE-ACETAMINOPHEN Inactive PROMETHAZINE-CODEINE 6.25-10 MG/5ML SYRP 1 tsp every 6 hrs prn c ough PROMETHAZINE-CODEINE 6.25-10 MG/5ML SYRP 439430 PROMETH AZINE-CODEINE Inactive IBUPROFEN 800 MG TAB 1 pill three times daily as needed for pain IBUPROFEN 800 MG TAB 910156 IBUPROFEN Inactive KEFLEX 500 MG CAP 1 tab po tid KEFLEX 500 MG CAP 550616 CEPHALEXIN Inactive HYDROCODONE-ACETAMINOPHEN 7.5-325 MG TABS 1 four times a day as needed for pain HYDROCODONE-ACETAMINOPHEN 7.5-325 MG TABS 443314 HYDROCODONE-ACETAMINOPHEN Inactive BACTRIM DS 800-160 MG TABS by mouth twice a day 11/05 BACTRIM DS 800-160 MG TABS SULFAMETHOXAZOLE-TRIMETHOPRIM Inactive IBUPROFEN 800 MG TABS 1 tid prn IBUPROFEN 800 MG TABS 451790 IBUPROFEN Inactive ENDOCET 10-325 MG TABS 1 q 6 hr prn ENDOC ET 10-325 MG TABS 2812768 OXYCODONE-ACETAMINOPHEN Inactive HYDROCODONE-ACETAMINOPHEN 7.5-325 MG TABS 1 by mouth e very 6 hours as needed for pain HYDROCODONE-ACETAMINOPHEN 7.5-325 MG TABS 300867 HYDROCODONE-ACETAMINOPHEN Inactive PERCOCET 7.5-325 MG TABS 1 PO q 8 hrs PRN pain PERCOCET 7.5-325 MG TABS 3774060 OXYCODONE-ACETAMINOPHEN Inactive AMOXICILLIN 875 MG TABS 1 tab by mouth twice daily 201 07/18/07 AMOXICILLIN 875 MG TABS 424477 AMOXICILLIN Inactive KEFLEX 500 MG CAP 1 po tid x 10 days KEFLEX 500 MG CAP 853831 CEPHALEXIN Inactive AMOXICILLIN 875 MG TABS 1 tab by mouth twice daily 201 07/19/27 AMOXICILLIN 875 MG TABS 149517 AMOXICILLIN Inactive AMOXICILLIN 875 MG TABS 1 tab by mouth twice daily 201 08/09/13 AMOXICILLIN 875 MG TABS 571168 AMOXICILLIN Inactive CIPRO 500 MG TAB 1 tablet by mouth twice daily CIPRO 500 MG TAB 527950 CIPROFLOXACIN HCL Inactive BACTRIM DS 800-160 MG TAB 1 tab by mouth twice daily 2 BACTRIM DS 800-160 MG TAB TRIMETHOPRIM-SULFAMETHOXAZOLE Inac tive LEVAQUIN 500 MG TABS 1 PO q day x 7 days LEVAQUIN 500 MG TABS 515328 LEVOFLOXACIN Inactive CLINDAMYCIN HCL 300 MG CAPS 1 po QID x 7 days CLINDAMYCIN HCL 300 MG CAPS 285252 CLINDAMYCIN HCL Inactive Advance Directives Directive Description Start Date PERMISSION TO SHARE Immunizations Vaccine Administration Date Value Standard Alf cription Seasonal influenza vaccine, injectable, containing preservative, for > 3 years old (Afluria, FluLaval, Fluzone, Fluvirin, Fluarix, Agriflu(>= 18 yo)) Fluzone (>3 yrs.) [[id number]] Influenza, seasonal, inject able Seasonal influenza vaccine, injectable, preservative free, for > 3 years old (Afluria, FluLaval, Fluzone, Fluvirin, Fluarix, Agriflu(>= 18 yo)) Fluzone preservative free (>3 yrs.) [[id number]] Influenza, seasonal, injectable, preservative free Seasonal influenza vaccine, injectable, containing preservative, for > 3 years old (Afluria, FluLaval, Fluzone, Fluvirin, Fluarix, Agriflu(>= 18 yo)) Fluzone (>3 yrs.) [[id number]] Influenza, seasonal, inject able Seasonal influenza vaccine, injectable, containing preservative, for > 3 years old (Afluria, FluLaval, Fluzone, Fluvirin, Fluarix, Agriflu(>= 18 yo)) Fluzone (>3 yrs.) [[id number]] Influenza, seasonal, inject able dT (Diphtheria and Tetanus) booster Historical Td(adult) unspecified formulation Vital Signs Date Name Value Unit Range Description blood pressure, diastolic 82 mm[Hg] BP ribeiro [...] Outside labs entered on flowsheet - Chemistry chloride, serum 103 mmol/L carbon dioxide, venous blood 26.1 mmol/L urea nitrogen, blood 5 mg/dL blood glucose 89 mg/dL creatinine, serum 0.73 mg/dL calcium, serum 9.1 mg/dL potassium, serum 3.9 mmol/L sodium, serum 139 mmol/L Chart Maintenance: Outside labs entered on Prizzmheet - Hematology platelet count 316 10*3/mm3 red blood cell distribution width 12.9 % mean corpuscular hemoglobin, RBC 27.5 pg mean corpuscular volume, RBC 82.4 fL hematocrit, blood 42.6 % hemoglobin, blood 14.2 g/dL erythrocyte (RBC) count 5.2 10*6/mm3 leukocyte count, blood 8.3 10*3/mm3 Lab Report: CBC W/DIFF, Comp. Metabolic Panel, Thyroid Stimulating Hormo ... - Chemistry sodium, serum 140 mmol/L 178-715 7580/02/24 potassium, serum 4.3 mmol/L 3.5-5.2 chloride, serum [...] Panel, Thyroid Stimulating Hormo ... - Hematology red blood cell distribution width 13.9 % 11 .6-14.8 platelet count 307 10^3/MM^3 10*3/mm3 473-834 7801/02/24 leukocyte count, blood 7.4 10^3/MM^3 10*3/mm3 4.6-10.2 [...] hemoglobin concentration, RBC 33.9 G/DL % 31.8-35.4 Lab Report: CBC W/DIFF, Comp. Metabolic Panel, [...] 4.3-6.0 Lab Report: T3, TOTAL, INSULIN - Accounts Manager ry triiodothyronine, serum 78 ng/dL 76-181 Lab [...] mg/dL Encounters Code Encounter Date Provider Facility CPT-38396 Level 3 Est. Patient 19:34:46 CDT Shola Wright [facility] CPT-31400 Level 3 Est. Patient 14:19:37 CDT Abdirahman Rios MD [facility] CPT-85424 Level 3 Est. Patient 14:11:58 CDT Kalpesh goins MD [facility] CPT-38432 Level 3 Est. Patient 16:50:00 CDT Michelle MERCADO [facility] CPT-73150 Level 3 Est. Patient 17:11:32 [employer] Brandie bates MD PhD [facility] CPT-36239 Level 3 Est. Patient 16:31:47 [employer] Shola Wright [facility] CPT-99681 Level 3 Est. Patient 17:51:10 [employer] Abhinav Galvan MD [facility] CPT-78593 Level 4 Est. Patient 12:54:56 [employer] Kalpesh goins MD [facility] CPT-53344 Level 4 Est. Patient 12:53:56 [employer] Kalpesh goins MD [facility] CPT-24917 Level 3 Est. Patient 17:56:58 CDT Shola Wright [facility] CPT-07119 Level 3 Est. Patient 14:26:20 CDT Janak butcher [facility] CPT-85952 Level 3 Est. Patient 09:38:41 CDT Shola Wright [facility] CPT-56157 Level 3 Est. Patient 14:45:26 CDT Edilberto tiwari [facility] CPT-95782 Level 3 Est. Patient 10:51:33 [facility] Est. Patient 11:57:55 [employer] Shola Thao Adriana [facility] CPT-12572 Level 3 Est. Patient 09:53:33 [employer] Edilberto tiwari [facility] CPT-49901 Level 3 Est. Patient 14:42:54 [employer] Abhinav Galvan MD [facility] CPT-28638 Level 3 Est. Patient 15:10:02 CDT Janak butcher [facility] CPT-65903 Level 3 Est. Patient 15:20:20 CDT Theo dennis MD [facility]-71098 Level 2 Est. Patient 14:08:57 CDT Kalpesh goins MD [facility] CPT-85222 Level 3 Est. Patient 13:56:19 CDT Abdirahman Rios MD [facility] CPT-91769 Level 3 Est. Patient 13:59:37 CDT Abdirahman Rios MD [facility] CPT-07248 Level 2 Est. Patient 14:44:59 CDT Kalpesh goins MD [facility]-02720 Level 3 Est. Patient 06:06:23 CDT Edilberto tiwari [facility] CPT-41905 Level 3 Est. Patient 15:23:54 CDT Abdirahman Rios MD [facility] CPT-09861 Level 3 Est. Patient 15:43:49 CDT Abdirahman Rios MD [facility] CPT-23979 Level 3 Est. Patient 12:46:47 [employer]ING [employer] Abdirahman Rios MD [facility] CPT-17272 Level 3 Est. Patient 08:13:35 [employer] Abdirahman Rios MD [facility] CPT-95803 Level 2 Est. Patient 09:36:42 [employer] Abdirahman Rios MD [facility] CPT-53278 Level 3 Est. Patient 10:56:43 CDT Abdirahman Rios MD [facility] CPT-05346 Level 3 Est. Patient 18:24:52 CDT Abdirahman Rios MD [facility] CPT-59938 Level 3 Est. Patient 13:27:22 CDT Abdirahman Rios MD [facility] Procedures Code Procedure Name Date Entry Date Standard Desc ription CPT-54471 Immunization Single Admin 16:41:53 CDT 2013 CPT-77038 Fluzone Quadrivalent Intramuscular Suspe nsion 0.5 ML 16:41:53 CDT CPT-OV Office Visit 16:39:18 CDT CPT-OV Office Visit 16:16:36 CDT CPT-OV Office Visit 15:34:48 CDT CPT-51174 Postop F/U Visit 14:50:12 CDT CPT-59740 Postop F/U Visit 14:41:10 CDT CPT-41512 Venipuncture Draw Fee 11:38:04 [employer] CPT-94308 Postop F/U Visit 19:02:59 [employer] CPT-77603 Postop F/U Visit 12:04:54 [employer]ING [employer]ER CPT-22754 Administration single or combination vac cine inc oral 15:56:43 CDT CPT-32153 Influenza split virus > age 3 15:56:43 CDT CPT-47158 Hand comp min 3V 14:25:19 CDT CPT-53484 Postop F/U Visit 21:40:51 CDT CPT-48228 Postop F/U Visit 10:58:43 CDT CPT-87047 Administration single or combination vac cine inc oral 12:33:54 LINING CLOSER CPT-60264 Influenza Preservative Free split virus >age 3 12:33:54 [employer]ING [employer]ER CPT-89988 Administration single or combination vac cine inc oral 09:30:51 CDT CPT-84208 Influenza split virus > age 3 09:30:51 CDT CPT-92164 Postop F/U Visit 15:14:53 CDT CPT-70364 Postop F/U Visit 13:50:14 CDT CPT-62894 Postop F/U Visit 13:34:52 CDT CPT-OV Office Visit 16:55:03 CDT CPT-82360 [place] of cervix w bx ECC 13:32:50 CDT 10/19 CPT-J1885 Toradol 60 mg (Ketorolac) 15:31:59 CDT 2011 CPT-J1885 Toradol 60 mg (Ketorolac) 15:23:54 CDT 2011 CPT-74785 Visit 11:34:37 [employer] CPT-29911 Visit 10:52:39 [employer]ING [employer] CPT-48791 Visit 10:12:02 [employer]ING [employer] CPT-89741 Visit 11:22:43 [employer] CPT-51194 Visit 11:24:12 [employer] CPT-36465 Visit 10:47:05 [employer]ING [employer] CPT-OV Office Visit 10:26:16 LINING [employer]ER CPT-OV Office Visit 15:34:31 [employer] CPT-79203 Visit 10:42:08 [employer] CPT-12119 Visit 10:52:45 [employer]ING [employer]ER CPT-000 Give Appropriate Flu Vaccine 16:56:41 CDT 2 CPT-26672 Administration single or combination vac cine inc oral 10:33:21 CDT CPT-83455 Influenza split virus > age 3 10:33:21 CDT CPT-84030 Visit 13:23:09 CDT CPT-28865 Visit 18:24:52 CDT CPT-21716 Sono OB comp > 14 weeks 12:07:49 CDT 04/07
--- OUTSIDE RECORDS SUMMARY | 2020-01-18 16:50 | XMS REPORT | Clinical Summary ---
Author Author Admin, Jeri Rashid Organization [facility] Address Unknown Phone Allergies, Adverse Reactions, [...] by mouth twice a day 11/05 SULFAMETHOXAZOLE-TRIMETHOPRIM [id number] No Longer Active Good Julian MD Active IBUPROFEN 800 MG TABS 1 tid prn IBUPROFEN 77971515919 Active Good Julian MD Active ENDOCET 10-325 MG TABS 1 q 6 hr prn OXYCODONE-A CETAMINOPHEN 58060089440 Active Shola MCGILL Active HYDROCODONE-ACETAMINOPHEN 7.5-325 MG TABS 1 four times a day as needed for pain HYDROCODONE-ACETAMINOPHEN 30560107549 No Longer Activ crystal Julian MD Active KEFLEX 500 MG CAP 1 tab po tid CEPHALEXIN 473524 39428 No Longer Active Hira Moser APRN Active IBUPROFEN 800 MG TAB 1 pill three times daily as needed for pain IBUPROFEN 97745664998 No Longer Active Kalpesh Dong MD Active PROMETHAZINE-CODEINE 6.25-10 MG/5ML SYRP 1 tsp every 6 hrs prn c ough PROMETHAZINE-CODEINE 01057698966 No Longer Active Kalpesh Carr Active ALPRAZOLAM 0.5 MG TABS 1 PO bid PRN ALPRAZOLAM 569617 16805 Active Shola MCGILL Active HYDROCODONE-ACETAMINOPHEN 5-325 MG TABS 1 tab by mouth every 6 hours as needed HYDROCODONE-ACETAMINOPHEN 41168729262 No Longer Activ e Shola MCGILL Active CEPHALEXIN 500 MG CAPS 1 PO bid x 7 days CEPHAL EXIN 26194880354 No Longer Active Shola MCGILL Active BACTRIM DS 800-160 MG TAB 1 tab by mouth twice daily 2 TRIMETHOPRIM-SULFAMETHOXAZOLE 27124396083 No Longer Active Kalpesh Dong MD Active HYDROCODONE-ACETAMINOPHEN 5-325 MG TABS 1 PO tid PRN pain 5 HYDROCODONE-ACETAMINOPHEN 31876636939 No Longer Active Abhinav Galvan MD Active IMPLANON 68 MG IMPL IMPLANTED IN LEFT ARM ETONO GESTREL 90561865231 No Longer Active 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 BARREL TESTER AND 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 Active AMOXICILLIN 500 MG TABS 2 tabs PO bid x 10 d AM OXICILLIN 62558862693 No Longer Active Kalpesh Dong MD Active LEVAQUIN 500 MG TABS 1 PO q day x 7 days LEVOFL OXACIN 58697000131 No Longer Active Shola MCGILL Active PROAIR HFA 108 (90 BASE) MCG/ACT AERS 2 puff q 4-6 hrs PRN ALBUTEROL SULFATE 96219422692 Active Shola MCGILL Acti ve FIORICET 50-325-40 MG TABS 2 PO q 8 hrs PRN FOSTER [id number] 32859111303 Active Abdirahman Rios MD Active AMITRIPTYLINE HCL 25 MG TAB 1 tab by mouth daily 60 minutes before bedtime AMITRIPTYLINE HCL 97882365919 No Longer Active Shola MCGILL Active LORTAB 5 5-500 MG TABS 1/2 to 1 tablet by mouth go ry 6 hours as needed for pain HYDROCODONE-ACETAMINOPHEN 09932845321 No Longer Active Shola MCGILL Active CEPHALEXIN 500 MG TABS Take one by mouth four times daily, morning, noon, early evening and bedtime. CEPHALEXIN 69252734190 No Long er Active Hira Moser BARREL TE[employer] DRAINER Active TYLENOL/CODEINE #3 300-30 MG TAB 1-2 po q6hr PRN Pain ACETAMINOPHEN-CODEINE 89445080157 No Longer Active Edilberto Marino DO Active PRISTIQ 50 MG [id number] 1 po qd DESVENLAFAXI NE SUCCINATE 20903996469 No Longer Active Edilberto Marino DO Active PENICILLIN V POTASSIUM 500 MG TAB 1 four times a day 2 PENICILLIN V POTASSIUM 94379274543 No Longer Active Edilberto Marino DO Active DOXYCYCLINE HYCLATE 100 MG CAPS Take one (1) tablet by mouth twice a day DOXYCYCLINE HYCLATE 98360002083 No Longer Active Ronnie Galvan MD Active HYDROCODONE-ACETAMINOPHEN 5-325 MG TABS 1 po q 6hr PRN Pain 2011 HYDROCODONE-ACETAMINOPHEN 86336645009 No Longer Active Patri joan Perez RN Active BACTRIM DS 800-160 MG TAB 1 tab by mouth twice daily 2 TRIMETHOPRIM-SULFAMETHOXAZOLE 72296238340 No Longer Active Kalpesh Dong MD Active LORTAB 5 5-500 MG TABS 1/2 to 1 tablet by mouth go ry 4 hours as needed for pain HYDROCODONE-ACETAMINOPHEN 14867370010 No Longer Active Kalpesh Dong MD Active GENERESS FE 0.8-25 MG-MCG CHEW Take one by mouth daily NORETHIN-ETH ESTRADIOL-FE 28102204530 No Longer Active Kalpesh Dong MD Active HYDROCODONE-ACETAMINOPHEN 7.5-500 MG TABS 1-2 every 4 hours as needed HYDROCODONE-ACETAMINOPHEN 63963635164 No Longer Activ e Kalpesh Dong MD Active FERROUS SULFATE 325 (65 FE) MG TABS 1 tablet by mouth twice yung y FERROUS SULFATE 78594811344 No Longer Active Kalpesh Dong MD Active IBUPROFEN 600 MG TAB 1 po q6-8hr PRN IBUPROFEN 63767827895 No Longer Active Kalpesh Dong MD Active SPIRONOLACTONE 25 MG TAB 1 tablet by mouth daily 01/22 SPIRONOLACTONE 60597779168 No Longer Active Kalpesh Dong MD Acti ve HYDROCODONE-ACETAMINOPHEN 7.5-325 MG TABS 1 po QID PRN Pain 2011 HYDROCODONE-ACETAMINOPHEN 30775272387 No Longer Active Kalpesh Dong MD Active CLINDAMYCIN HCL 300 MG CAPS 1 po q6hr x 7 days CLINDAMYCIN HCL 80554807670 No Longer Active Edilberto Marino DO Active PREDNISONE 20 MG TAB 2 tabs daily for 4 days, 1 t ab daily for 4 days, 1/2 tab daily for 4 days PREDNISONE 72964509993 No Longer Active Edilberto Marino DO Active PERCOCET 5-325 MG TABS 1 tablet by mouth every 6 hours as ne eded for pain OXYCODONE-ACETAMINOPHEN 65817665941 No Longer Active Abdirahman Rios MD Active VITAMINS TABS Take one by mouth daily MV & MIN W/FE-FA TABS 53624075713 No Longer Active Abdirahman Rios MD Active LUIS 3-0.02 MG TABS 1 tablet by mouth daily as directed DROSPIRENONE-ETHINYL ESTRADIOL 89292345108 No Longer Active Abdirahman Rios MD Active LORATADINE 10 MG TABS 1 tablet by mouth daily L ORATADINE 34528906338 No Longer Active Kalpesh Dong MD Active HYDROCODONE-ACETAMINOPHEN 5-325 MG TABS 1 po q 6hr PRN Pain 2010 HYDROCODONE-ACETAMINOPHEN 48999268271 No Longer Active Edilberto Marino DO Active BACTRIM DS 800-160 MG TAB 1 tab by mouth twice daily 2 TRIMETHOPRIM-SULFAMETHOXAZOLE 52193096091 No Longer Active Abdirahman Rios MD Active 28-0.8 MG TABS Take one by mouth daily 09/20 VIT-FE FUMARATE-FA 90561552481 No Longer Active Abdirahman Rios MD Active CIPRO 500 MG TAB 1 tablet by mouth twice daily CIPROFLOXACIN HCL 31165012300 No Longer Active Abdirahman Rios MD Active BENADRYL 25 MG CAP 1 po q8hr PRN Congestion DIPHENHYDRAMINE HCL 11439304443 No Longer Active Abdirahman Rios MD Active ZOLOFT 50 MG TAB 1 po qd SERTRALINE HCL 259246 91209 No Longer Active Abdirahman Rios MD Active AMOXICILLIN 875 MG TABS 1 tab by mouth twice daily 201 08/09/13 AMOXICILLIN 64507353038 No Longer Active Abdirahman Rios MD Activ e AMOXICILLIN 875 MG TABS 1 tab by mouth twice daily 201 07/19/27 AMOXICILLIN 09785078922 No Longer Active Abdirahman Rios MD Activ e BACTRIM DS 800-160 MG TAB 2 tab by mouth twice daily 2 TRIMETHOPRIM-SULFAMETHOXAZOLE 89711216615 No Longer Active Abdirahman Rios MD Active KEFLEX 500 MG CAP 1 po tid x 10 days CEPHALEXIN 36781326831 No Longer Active Abdirahman Rios MD Active AMOXICILLIN 875 MG TABS 1 tab by mouth twice daily 201 07/18/07 AMOXICILLIN 83591478343 No Longer Active Abdirahman Rios MD Activ e BACTRIM DS 800-160 MG TAB 2 tab by mouth twice daily 2 BACTRIM DS 800-160 MG TAB TRIMETHOPRIM-SULFAMETHOXAZOLE Inactive ZOLOFT 50 MG TAB 1 po qd ZOLOFT 50 MG TAB 3129 41 SERTRALINE HCL Inactive BENADRYL 25 MG CAP 1 po q8hr PRN Congestion BENADRYL 25 MG CAP 6879837 DIPHENHYDRAMINE HCL Inactive 28-0.8 MG TABS Take one by mouth daily 09/20 28-0.8 MG TABS VIT-FE FUMARATE-FA Inactive HYDROCODONE-ACETAMINOPHEN 5-325 MG TABS 1 po q 6hr PRN Pain 2010 HYDROCODONE-ACETAMINOPHEN 5-325 MG TABS 996800 HYDROCODONE-ACETAMINOPHEN Inactive LORATADINE 10 MG TABS 1 tablet by mouth daily LORATADINE 10 MG TABS 122950 LORATADINE Inactive LUIS 3-0.02 MG TABS 1 tablet by mouth daily as directed LUIS 3-0.02 MG TABS DROSPIRENONE-ETHINYL ESTRADIOL Inactive VITAMINS TABS Take one by mouth daily VITAMINS TABS MV & MIN W/FE-FA TABS Inactive PERCOCET 5-325 MG TABS 1 tablet by mouth every 6 hours as ne eded for pain PERCOCET 5-325 MG TABS 8358212 OXYCODONE-ACETAMIN OPHEN Inactive PREDNISONE 20 MG TAB 2 tabs daily for 4 days, 1 t ab daily for 4 days, 1/2 tab daily for 4 days PREDNISONE 20 MG TAB 536416 PREDNISON E Inactive CLINDAMYCIN HCL 300 MG CAPS 1 po q6hr x 7 days CLINDAMYCIN HCL 300 MG CAPS 793672 CLINDAMYCIN HCL Inactive HYDROCODONE-ACETAMINOPHEN 7.5-325 MG TABS 1 po QID PRN Pain 2011 HYDROCODONE-ACETAMINOPHEN 7.5-325 MG TABS 494457 HYDROCODONE-ACETAMINOPHEN Inactive SPIRONOLACTONE 25 MG TAB 1 tablet by mouth daily 01/22 SPIRONOLACTONE 25 MG TAB 566072 SPIRONOLACTONE Inactive IBUPROFEN 600 MG TAB 1 po q6-8hr PRN IBUPROFEN 600 MG TAB 562253 IBUPROFEN Inactive FERROUS SULFATE 325 (65 FE) MG TABS 1 tablet by mouth twice yung y FERROUS SULFATE 325 (65 FE) MG TABS 711206 FERROUS SULF ATE Inactive HYDROCODONE-ACETAMINOPHEN 7.5-500 MG TABS 1-2 every 4 hours as needed HYDROCODONE-ACETAMINOPHEN 7.5-500 MG TABS 997487 HYDROCODONE-ACETAMINOPHEN Inactive GENERESS FE 0.8-25 MG-MCG CHEW [...] PRN Pain 2011 HYDROCODONE-ACETAMINOPHEN 5-325 MG TABS 613528 HYDROCODONE-ACETAMINOPHEN Inactive DOXYCYCLINE HYCLATE 100 MG CAPS Take one (1) tablet by mouth twice a day DOXYCYCLINE HYCLATE 100 MG CAPS 025352 DOXYCYCLINE HYCLATE Inactive PENICILLIN V POTASSIUM 500 MG TAB 1 four times a day 2 PENICILLIN V POTASSIUM 500 MG TAB 049990 PENICILLIN V POTASSIUM Lodi ctive PRISTIQ 50 MG [id number] 1 po qd PRISTIQ 50 MG [id number] DESVENLAFAXINE SUCCINATE Inactive TYLENOL/CODEINE #3 300-30 MG TAB 1-2 po q6hr PRN Pain TYLENOL/CODEINE #3 300-30 MG TAB 378841 ACETAMINOPHEN-CODEINE Inact krishna CEPHALEXIN 500 MG TABS Take one by mouth four times daily, morning, noon, early evening and bedtime. CEPHALEXIN 500 MG TABS 272841 CEPHALEXIN Inactive LORTAB 5 5-500 MG TABS 1/2 to 1 tablet by mouth go ry 6 hours as needed for pain LORTAB 5 5-500 MG TABS HYDROCODONE-A CETAMINOPHEN Inactive AMITRIPTYLINE HCL 25 MG TAB 1 tab by mouth daily 60 minutes before bedtime AMITRIPTYLINE HCL 25 MG TAB 500907 AMITRIPTYLINE HCL Inactive AMOXICILLIN 500 MG TABS 2 tabs PO bid x 10 d 7 AMOXICILLIN 500 MG TABS 876302 AMOXICILLIN Inactive IMPLANON 68 MG IMPL IMPLANTED IN LEFT ARM IMPLANON 68 MG IMPL ETONOGESTREL Inactive HYDROCODONE-ACETAMINOPHEN 5-325 MG TABS 1 PO tid PRN pain 5 HYDROCODONE-ACETAMINOPHEN 5-325 MG TABS 811926 HYDROCODONE-ACETAMIN OPHEN Inactive BACTRIM DS 800-160 MG TAB 1 tab by mouth twice daily 2 BACTRIM DS 800-160 MG TAB TRIMETHOPRIM-SULFAMETHOXAZOLE Inac tive CEPHALEXIN 500 MG CAPS 1 PO bid x 7 days CEPHALEXIN 500 MG CAPS 526206 CEPHALEXIN Inactive HYDROCODONE-ACETAMINOPHEN 5-325 MG TABS 1 tab by mouth every 6 hours as needed HYDROCODONE-ACETAMINOPHEN 5-325 MG TABS 832154 HYDROCODONE-ACETAMINOPHEN Inactive PROMETHAZINE-CODEINE 6.25-10 MG/5ML SYRP 1 tsp every 6 hrs prn c ough PROMETHAZINE-CODEINE 6.25-10 MG/5ML SYRP 406960 PROMETH AZINE-CODEINE Inactive IBUPROFEN 800 MG TAB 1 pill three times daily as needed for pain IBUPROFEN 800 MG TAB 106501 IBUPROFEN Inactive KEFLEX 500 MG CAP 1 tab po tid KEFLEX 500 MG CAP 835695 CEPHALEXIN Inactive HYDROCODONE-ACETAMINOPHEN 7.5-325 MG TABS 1 four times a day as needed for pain HYDROCODONE-ACETAMINOPHEN 7.5-325 MG TABS 037870 HYDROCODONE-ACETAMINOPHEN Inactive BACTRIM DS 800-160 MG TABS by mouth twice a day 11/05 BACTRIM DS 800-160 MG TABS SULFAMETHOXAZOLE-TRIMETHOPRIM Inactive AMOXICILLIN 875 MG TABS 1 tab by mouth twice daily 201 07/18/07 AMOXICILLIN 875 MG TABS 779966 AMOXICILLIN Inactive KEFLEX 500 MG CAP 1 po tid x 10 days KEFLEX 500 MG CAP 576478 CEPHALEXIN Inactive AMOXICILLIN 875 MG TABS 1 tab by mouth twice daily 201 07/19/27 AMOXICILLIN 875 MG TABS 083642 AMOXICILLIN Inactive AMOXICILLIN 875 MG TABS 1 tab by mouth twice daily 08/09/13 AMOXICILLIN 875 MG TABS 390952 AMOXICILLIN Inactive CIPRO 500 MG TAB 1 tablet by mouth twice daily CIPRO 500 MG TAB 526788 CIPROFLOXACIN HCL Inactive BACTRIM DS 800-160 MG TAB 1 tab by mouth twice daily 2 BACTRIM DS 800-160 MG TAB TRIMETHOPRIM-SULFAMETHOXAZOLE Inac tive LEVAQUIN 500 MG TABS 1 PO q day x 7 days LEVAQUIN 500 MG TABS 423575 LEVOFLOXACIN Inactive Advance Directives Directive Description Start Date PERMISSION TO SHARE Immunizations Vaccine Administration Date Value Standard Alf cription Seasonal influenza vaccine, injectable, containing preservative, for > 3 years old (Afluria, FluLaval, Fluzone, Fluvirin, Fluarix, Agriflu(>= 18 yo)) Fluzone (>3 yrs.) [[id number]] Influenza, seasonal, inject able Seasonal influenza vaccine, injectable, preservative free, for > 3 years old (Afluria, FluLaval, Fluzone, Fluvirin, Fluarix, Agriflu(>= 18 yo)) Fluzone preservative free (>3 yrs.) [[id number]] Influenza, seasonal, injectable, preservative free Seasonal influenza vaccine, injectable, containing preservative, for > 3 years old (Afluria, FluLaval, Fluzone, Fluvirin, Fluarix, Agriflu(>= 18 yo)) Fluzone (>3 yrs.) [[id number]] Influenza, seasonal, inject able Seasonal influenza vaccine, injectable, containing preservative, for > 3 years old (Afluria, FluLaval, Fluzone, Fluvirin, Fluarix, Agriflu(>= 18 yo)) Fluzone (>3 yrs.) [[id number]] Influenza, seasonal, inject able dT (Diphtheria and [...] ... - Chemistry sodium, serum 140 mmol/L 560-540 6300/02/24 potassium, serum 4.3 mmol/L 3.5-5.2 chloride, serum [...] 4.3-6.0 Lab Report: T3, TOTAL, INSULIN - Right Of Way Clearer ry triiodothyronine, serum 78 ng/dL 76-181 Lab [...] mg/dL Encounters Code Encounter Date Provider Facility CPT-30742 Level 3 Est. Patient 14:11:58 CDT Kalpesh goins MD [facility] CPT-07611 Level 3 Est. Patient 16:50:00 CDT Michelle MERCADO [facility] CPT-99244 Level 3 Est. Patient 17:11:32 FIELD ADMINISTRATIVE ASSISTANT Brandie bates MD PhD [facility] CPT-63778 Level 3 Est. Patient 16:31:47 FIELD ADMINISTRATIVE ASSISTANT Shola MCGILL [facility] CPT-27662 Level 3 Est. Patient 17:51:10 FIELD ADMINISTRATIVE ASSISTANT Abhinav Galvan MD [facility] CPT-82960 Level 4 Est. Patient 12:54:56 FIELD ADMINISTRATIVE ASSISTANT Kalpesh goins MD [facility] CPT-00579 Level 4 Est. Patient 12:53:56 FIELD ADMINISTRATIVE ASSISTANT Kalpesh goins MD [facility] CPT-96111 Level 3 Est. Patient 17:56:58 CDT Shola Wright [facility] CPT-60819 Level 3 Est. Patient 14:26:20 CDT Janak butcher [facility] CPT-01381 Level 3 Est. Patient 09:38:41 CDT Shola Keesha Wright [facility] CPT-93023 Level 3 Est. Patient 14:45:26 CDT Edilberto tiwari [facility]-20524 Level 3 Est. Patient 10:51:33 [facility] Level 3 Est. Patient 11:57:55 FIELD ADMINISTRATIVE ASSISTANT Shola Thao Adriana [facility] CPT-91697 Level 3 Est. Patient 09:53:33 FIELD ADMINISTRATIVE ASSISTANT Edilberto tiwari [facility] CPT-51551 Level 3 Est. Patient 14:42:54 FIELD ADMINISTRATIVE ASSISTANT Abhinav Galvan MD [facility] CPT-47959 Level 3 Est. Patient 15:10:02 CDT Janak butcher [facility] CPT-16066 Level 3 Est. Patient 15:20:20 CDT Theo ednnis MD [facility] CPT-50823 Level 2 Est. Patient 14:08:57 CDT Kalpesh goins MD [facility]-53412 Level 3 Est. Patient 13:56:19 CDT Abdirahman Rios MD [facility] CPT-95361 Level 3 Est. Patient 13:59:37 CDT Abdirahman Rios MD [facility] CPT-31183 Level 2 Est. Patient 14:44:59 CDT Kalpesh goins MD [facility] CPT-05235 Level 3 Est. Patient 06:06:23 CDT Edilberto tiwari DO [facility] CPT-60754 Level 3 Est. Patient 15:23:54 CDT Abdirahman Rios MD [facility] CPT-68424 Level 3 Est. Patient 15:43:49 CDT Abdirahman Rios MD [facility] CPT-47394 Level 3 Est. Patient 12:46:47 FIELD ADMINISTRATIVE ASSISTANT Abdirahman Rios MD [facility] CPT-75783 Level 3 Est. Patient 08:13:35 FIELD ADMINISTRATIVE ASSISTANT Abdirahman Rios MD [facility] CPT-28607 Level 2 Est. Patient 09:36:42 FIELD ADMINISTRATIVE ASSISTANT Abdirahman Rios MD [facility] CPT-84583 Level 3 Est. Patient 10:56:43 CDT Abdirahman Rios MD [facility] CPT-78117 Level 3 Est. Patient 18:24:52 CDT Abdirahman Rios MD [facility] CPT-18595 Level 3 Est. Patient 13:27:22 CDT Abdirahman Rios MD [facility] Procedures Code Procedure Name Date Entry Date Standard Desc ription CPT-OV Office Visit 15:34:48 CDT CPT-65998 Postop F/U Visit 14:50:12 CDT CPT-56827 Postop F/U Visit 14:41:10 CDT CPT-72930 Venipuncture Draw Fee 11:38:04 FIELD ADMINISTRATIVE ASSISTANT CPT-14132 Postop F/U Visit 19:02:59 FIELD ADMINISTRATIVE ASSISTANT CPT-36338 Postop F/U Visit 12:04:54 FIELD ADMINISTRATIVE ASSISTANT CPT-52035 Administration single or combination vac cine inc oral 15:56:43 CDT CPT-59217 Influenza split virus > age 3 15:56:43 CDT CPT-66035 Hand comp min 3V 14:25:19 CDT CPT-45514 Postop F/U Visit 21:40:51 CDT CPT-52138 Postop F/U Visit 10:58:43 CDT CPT-91557 Administration single or combination vac cine inc oral 12:33:54 FIELD ADMINISTRATIVE ASSISTANT CPT-28654 Influenza Preservative Free split virus >age 3 12:33:54 FIELD ADMINISTRATIVE ASSISTANT CPT-39085 Administration single or combination vac cine inc oral 09:30:51 CDT CPT-86726 Influenza split virus > age 3 09:30:51 CDT CPT-28795 Postop F/U Visit 15:14:53 CDT CPT-66061 Postop F/U Visit 13:50:14 CDT CPT-74594 Postop F/U Visit 13:34:52 CDT CPT-OV Office Visit 16:55:03 CDT CPT-56462 Marion of cervix w bx ECC 13:32:50 CDT 10/19 CPT-J1885 Toradol 60 mg (Ketorolac) 15:31:59 CDT 2011 CPT-J1885 Toradol 60 mg (Ketorolac) 15:23:54 CDT 2011 CPT-43439 Visit 11:34:37 FIELD ADMINISTRATIVE ASSISTANT CPT-03120 Visit 10:52:39 FIELD ADMINISTRATIVE ASSISTANT CPT-79416 Visit 10:12:02 FIELD ADMINISTRATIVE ASSISTANT CPT-22674 Visit 11:22:43 FIELD ADMINISTRATIVE ASSISTANT CPT-59537 Visit 11:24:12 FIELD ADMINISTRATIVE ASSISTANT CPT-85171 Visit 10:47:05 FIELD ADMINISTRATIVE ASSISTANT CPT-OV Office Visit 10:26:16 FIELD ADMINISTRATIVE ASSISTANT CPT-OV Office Visit 15:34:31 FIELD ADMINISTRATIVE ASSISTANT CPT-92938 Visit 10:42:08 FIELD ADMINISTRATIVE ASSISTANT CPT-76216 Visit 10:52:45 FIELD ADMINISTRATIVE ASSISTANT CPT-000 Give Appropriate Flu Vaccine 16:56:41 CDT 2 CPT-52408 Administration single or combination vac cine inc oral 10:33:21 CDT CPT-20978 Influenza split virus > age 3 10:33:21 CDT CPT-35550 Visit 13:23:09 CDT CPT-19962 Visit 18:24:52 CDT CPT-18134 Sono OB comp > 14 weeks 12:07:49 CDT 04/07
--- OUTSIDE RECORDS SUMMARY | 2020-01-18 16:50 | XMS REPORT | Clinical Summary ---
Author Author Admin, Jeri Rashid Organization [facility] Address Unknown Phone Allergies, Adverse Reactions, [...] by mouth twice a day 11/05 SULFAMETHOXAZOLE-TRIMETHOPRIM [id number] No Longer Active Good Julian MD Active IBUPROFEN 800 MG TABS 1 tid prn IBUPROFEN 91562508037 Active Good Julian MD Active ENDOCET 10-325 MG TABS 1 q 6 hr prn OXYCODONE-A CETAMINOPHEN 11374842268 Active Good Julian MD Active HYDROCODONE-ACETAMINOPHEN 7.5-325 MG TABS 1 four times a day as needed for pain HYDROCODONE-ACETAMINOPHEN 71145189513 No Longer Activ crystal Julian MD Active KEFLEX 500 MG CAP 1 tab po tid CEPHALEXIN 072237 20986 No Longer Active Hira Moser APRN Active IBUPROFEN 800 MG TAB 1 pill three times daily as needed for pain IBUPROFEN 36256572862 No Longer Active Kalpesh Dong MD Active PROMETHAZINE-CODEINE 6.25-10 MG/5ML SYRP 1 tsp every 6 hrs prn c ough PROMETHAZINE-CODEINE 83230366598 No Longer Active Kalpesh Carr Active ALPRAZOLAM 0.5 MG TABS 1 PO bid PRN ALPRAZOLAM 297002 69798 Active Shola MCGILL Active HYDROCODONE-ACETAMINOPHEN 5-325 MG TABS 1 tab by mouth every 6 hours as needed HYDROCODONE-ACETAMINOPHEN 36700504784 No Longer Activ e Shola MCGILL Active CEPHALEXIN 500 MG CAPS 1 PO bid x 7 days CEPHAL EXIN 39979323417 No Longer Active Shola MCGILL Active BACTRIM DS 800-160 MG TAB 1 tab by mouth twice daily 2 TRIMETHOPRIM-SULFAMETHOXAZOLE 09504530620 No Longer Active Kalpesh Dong MD Active HYDROCODONE-ACETAMINOPHEN 5-325 MG TABS 1 PO tid PRN pain 5 HYDROCODONE-ACETAMINOPHEN 58598105013 No Longer Active Abhinav Galvan MD Active IMPLANON 68 MG IMPL IMPLANTED IN LEFT ARM ETONO GESTREL 30592183711 No Longer Active 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 [employer] Active AMOXICILLIN 500 MG TABS 2 tabs PO bid x 10 d AM OXICILLIN 50665271949 No Longer Active Kalpesh Dong MD Active LEVAQUIN 500 MG TABS 1 PO q day x 7 days LEVOFL OXACIN 38323474592 No Longer Active Shola MCGILL Active PROAIR HFA 108 (90 BASE) MCG/ACT AERS 2 puff q 4-6 hrs PRN ALBUTEROL SULFATE 75020744753 Active Shola MCGILL Acti ve FIORICET 50-325-40 MG TABS 2 PO q 8 hrs PRN FOSTER [id number] 50018995541 Active Abdirahman Rios MD Active AMITRIPTYLINE HCL 25 MG TAB 1 tab by mouth daily 60 minutes before bedtime AMITRIPTYLINE HCL 51366857004 No Longer Active Shola MCGILL Active LORTAB 5 5-500 MG TABS 1/2 to 1 tablet by mouth go ry 6 hours as needed for pain HYDROCODONE-ACETAMINOPHEN 96982789263 No Longer Active Shola MCGILL Active CEPHALEXIN 500 MG TABS Take one by mouth four times daily, morning, noon, early evening and bedtime. CEPHALEXIN 49818912345 No Long er Active Hira Perazaabel [employer] Active TYLENOL/CODEINE #3 300-30 MG TAB 1-2 po q6hr PRN Pain ACETAMINOPHEN-CODEINE 00815131772 No Longer Active Edilberto Marino DO Active PRISTIQ 50 MG [id number] 1 po qd DESVENLAFAXI NE SUCCINATE 49908117227 No Longer Active Edilberto Marino DO Active PENICILLIN V POTASSIUM 500 MG TAB 1 four times a day 2 PENICILLIN V POTASSIUM 76909562709 No Longer Active Edilberto Marino DO Active DOXYCYCLINE HYCLATE 100 MG CAPS Take one (1) tablet by mouth twice a day DOXYCYCLINE HYCLATE 78261096234 No Longer Active Ronnie Galvan MD Active HYDROCODONE-ACETAMINOPHEN 5-325 MG TABS 1 po q 6hr PRN Pain 2011 HYDROCODONE-ACETAMINOPHEN 22268917498 No Longer Active Patri joan Perez RN Active BACTRIM DS 800-160 MG TAB 1 tab by mouth twice daily 2 TRIMETHOPRIM-SULFAMETHOXAZOLE 52084624210 No Longer Active Kalpesh Dong MD Active LORTAB 5 5-500 MG TABS 1/2 to 1 tablet by mouth go ry 4 hours as needed for pain HYDROCODONE-ACETAMINOPHEN 23515820662 No Longer Active Kalpesh Dong MD Active GENERESS FE 0.8-25 MG-MCG CHEW Take one by mouth daily NORETHIN-ETH ESTRADIOL-FE 06734656186 No Longer Active Kalpesh Dong MD Active HYDROCODONE-ACETAMINOPHEN 7.5-500 MG TABS 1-2 every 4 hours as needed HYDROCODONE-ACETAMINOPHEN 21664084771 No Longer Activ e Kalpesh Dong MD Active FERROUS SULFATE 325 (65 FE) MG TABS 1 tablet by mouth twice yung y FERROUS SULFATE 17020155906 No Longer Active Kalpesh Dong MD Active IBUPROFEN 600 MG TAB 1 po q6-8hr PRN IBUPROFEN 18291240326 No Longer Active Kalpesh Dong MD Active SPIRONOLACTONE 25 MG TAB 1 tablet by mouth daily 01/22 SPIRONOLACTONE 88285536998 No Longer Active Kalpesh Dong MD Acti ve HYDROCODONE-ACETAMINOPHEN 7.5-325 MG TABS 1 po QID PRN Pain 2011 HYDROCODONE-ACETAMINOPHEN 29493539881 No Longer Active Kalpesh Dong MD Active CLINDAMYCIN HCL 300 MG CAPS 1 po q6hr x 7 days CLINDAMYCIN HCL 89110384509 No Longer Active Edilberto Marino DO Active PREDNISONE 20 MG TAB 2 tabs daily for 4 days, 1 t ab daily for 4 days, 1/2 tab daily for 4 days PREDNISONE 95237760852 No Longer Active Edilberto Marino DO Active PERCOCET 5-325 MG TABS 1 tablet by mouth every 6 hours as ne eded for pain OXYCODONE-ACETAMINOPHEN 28849099493 No Longer Active Abdirahman Rios MD Active VITAMINS TABS Take one by mouth daily MV & MIN W/FE-FA TABS 28577832233 No Longer Active Abdirahman Rios MD Active LUIS 3-0.02 MG TABS 1 tablet by mouth daily as directed DROSPIRENONE-ETHINYL ESTRADIOL 62693000379 No Longer Active Abdirahman Rios MD Active LORATADINE 10 MG TABS 1 tablet by mouth daily L ORATADINE 96051773158 No Longer Active Kalpesh Dong MD Active HYDROCODONE-ACETAMINOPHEN 5-325 MG TABS 1 po q 6hr PRN Pain 2010 HYDROCODONE-ACETAMINOPHEN 57409774038 No Longer Active Edilberto Marino DO Active BACTRIM DS 800-160 MG TAB 1 tab by mouth twice daily 2 TRIMETHOPRIM-SULFAMETHOXAZOLE 51762571234 No Longer Active Abdirahman Rios MD Active 28-0.8 MG TABS Take one by mouth daily 09/20 VIT-FE FUMARATE-FA 31849003192 No Longer Active Abdirahman Rios MD Active CIPRO 500 MG TAB 1 tablet by mouth twice daily CIPROFLOXACIN HCL 69344751558 No Longer Active Abdirahman Rios MD Active BENADRYL 25 MG CAP 1 po q8hr PRN Congestion DIPHENHYDRAMINE HCL 02485707059 No Longer Active Abdirahman Rios MD Active ZOLOFT 50 MG TAB 1 po qd SERTRALINE HCL 864391 35805 No Longer Active Abdirahman Rios MD Active AMOXICILLIN 875 MG TABS 1 tab by mouth twice daily 201 08/09/13 AMOXICILLIN 33827748619 No Longer Active Abdirahman Rios MD Activ e AMOXICILLIN 875 MG TABS 1 tab by mouth twice daily 201 07/19/27 AMOXICILLIN 10424575374 No Longer Active Abdirahman Rios MD Activ e BACTRIM DS 800-160 MG TAB 2 tab by mouth twice daily 2 TRIMETHOPRIM-SULFAMETHOXAZOLE 96121388329 No Longer Active Abdirahman Rios MD Active KEFLEX 500 MG CAP 1 po tid x 10 days CEPHALEXIN 01645090263 No Longer Active Abdirahman Rios MD Active AMOXICILLIN 875 MG TABS 1 tab by mouth twice daily 201 07/18/07 AMOXICILLIN 95111922860 No Longer Active Abdirahman Rios MD Activ e BACTRIM DS 800-160 MG TAB 2 tab by mouth twice daily 2 BACTRIM DS 800-160 MG TAB TRIMETHOPRIM-SULFAMETHOXAZOLE Inactive ZOLOFT 50 MG TAB 1 po qd ZOLOFT 50 MG TAB 3129 41 SERTRALINE HCL Inactive BENADRYL 25 MG CAP 1 po q8hr PRN Congestion BENADRYL 25 MG CAP 8748810 DIPHENHYDRAMINE HCL Inactive 28-0.8 MG TABS Take one by mouth daily 09/20 28-0.8 MG TABS VIT-FE FUMARATE-FA Inactive HYDROCODONE-ACETAMINOPHEN 5-325 MG TABS 1 po q 6hr PRN Pain 2010 HYDROCODONE-ACETAMINOPHEN 5-325 MG TABS 693199 HYDROCODONE-ACETAMINOPHEN Inactive LORATADINE 10 MG TABS 1 tablet by mouth daily LORATADINE 10 MG TABS 359493 LORATADINE Inactive LUIS 3-0.02 MG TABS 1 tablet by mouth daily as directed LUIS 3-0.02 MG TABS DROSPIRENONE-ETHINYL ESTRADIOL Inactive VITAMINS TABS Take one by mouth daily VITAMINS TABS MV & MIN W/FE-FA TABS Inactive PERCOCET 5-325 MG TABS 1 tablet by mouth every 6 hours as ne eded for pain PERCOCET 5-325 MG TABS 5138407 OXYCODONE-ACETAMIN OPHEN Inactive PREDNISONE 20 MG TAB 2 tabs daily for 4 days, 1 t ab daily for 4 days, 1/2 tab daily for 4 days PREDNISONE 20 MG TAB 928327 PREDNISON E Inactive CLINDAMYCIN HCL 300 MG CAPS 1 po q6hr x 7 days CLINDAMYCIN HCL 300 MG CAPS 869062 CLINDAMYCIN HCL Inactive HYDROCODONE-ACETAMINOPHEN 7.5-325 MG TABS 1 po QID PRN Pain 2011 HYDROCODONE-ACETAMINOPHEN 7.5-325 MG TABS 660848 HYDROCODONE-ACETAMINOPHEN Inactive SPIRONOLACTONE 25 MG TAB 1 tablet by mouth daily 01/22 SPIRONOLACTONE 25 MG TAB 783847 SPIRONOLACTONE Inactive IBUPROFEN 600 MG TAB 1 po q6-8hr PRN IBUPROFEN 600 MG TAB 250771 IBUPROFEN Inactive FERROUS SULFATE 325 (65 FE) MG TABS 1 tablet by mouth twice yung y FERROUS SULFATE 325 (65 FE) MG TABS 574305 FERROUS SULF ATE Inactive HYDROCODONE-ACETAMINOPHEN 7.5-500 MG TABS 1-2 every 4 hours as needed HYDROCODONE-ACETAMINOPHEN 7.5-500 MG TABS 230273 HYDROCODONE-ACETAMINOPHEN Inactive GENERESS FE 0.8-25 MG-MCG CHEW [...] PRN Pain 2011 HYDROCODONE-ACETAMINOPHEN 5-325 MG TABS 727810 HYDROCODONE-ACETAMINOPHEN Inactive DOXYCYCLINE HYCLATE 100 MG CAPS Take one (1) tablet by mouth twice a day DOXYCYCLINE HYCLATE 100 MG CAPS 790119 DOXYCYCLINE HYCLATE Inactive PENICILLIN V POTASSIUM 500 MG TAB 1 four times a day 2 PENICILLIN V POTASSIUM 500 MG TAB 987482 PENICILLIN V POTASSIUM [place] ctive PRISTIQ 50 MG [id number] 1 po qd PRISTIQ 50 MG [id number] DESVENLAFAXINE SUCCINATE Inactive TYLENOL/CODEINE #3 300-30 MG TAB 1-2 po q6hr PRN Pain TYLENOL/CODEINE #3 300-30 MG TAB 069108 ACETAMINOPHEN-CODEINE Inact krishna CEPHALEXIN 500 MG TABS Take one by mouth four times daily, morning, noon, early evening and bedtime. CEPHALEXIN 500 MG TABS 355875 CEPHALEXIN Inactive LORTAB 5 5-500 MG TABS 1/2 to 1 tablet by mouth go ry 6 hours as needed for pain LORTAB 5 5-500 MG TABS HYDROCODONE-A CETAMINOPHEN Inactive AMITRIPTYLINE HCL 25 MG TAB 1 tab by mouth daily 60 minutes before bedtime AMITRIPTYLINE HCL 25 MG TAB 663127 AMITRIPTYLINE HCL Inactive AMOXICILLIN 500 MG TABS 2 tabs PO bid x 10 d 7 AMOXICILLIN 500 MG TABS 466943 AMOXICILLIN Inactive IMPLANON 68 MG IMPL IMPLANTED IN LEFT ARM IMPLANON 68 MG IMPL ETONOGESTREL Inactive HYDROCODONE-ACETAMINOPHEN 5-325 MG TABS 1 PO tid PRN pain 5 HYDROCODONE-ACETAMINOPHEN 5-325 MG TABS 671217 HYDROCODONE-ACETAMIN OPHEN Inactive BACTRIM DS 800-160 MG TAB 1 tab by mouth twice daily 2 BACTRIM DS 800-160 MG TAB TRIMETHOPRIM-SULFAMETHOXAZOLE Inac tive CEPHALEXIN 500 MG CAPS 1 PO bid x 7 days CEPHALEXIN 500 MG CAPS 893904 CEPHALEXIN Inactive HYDROCODONE-ACETAMINOPHEN 5-325 MG TABS 1 tab by mouth every 6 hours as needed HYDROCODONE-ACETAMINOPHEN 5-325 MG TABS 984267 HYDROCODONE-ACETAMINOPHEN Inactive PROMETHAZINE-CODEINE 6.25-10 MG/5ML SYRP 1 tsp every 6 hrs prn c ough PROMETHAZINE-CODEINE 6.25-10 MG/5ML SYRP 410641 PROMETH AZINE-CODEINE Inactive IBUPROFEN 800 MG TAB 1 pill three times daily as needed for pain IBUPROFEN 800 MG TAB 722221 IBUPROFEN Inactive KEFLEX 500 MG CAP 1 tab po tid KEFLEX 500 MG CAP 462773 CEPHALEXIN Inactive HYDROCODONE-ACETAMINOPHEN 7.5-325 MG TABS 1 four times a day as needed for pain HYDROCODONE-ACETAMINOPHEN 7.5-325 MG TABS 131338 HYDROCODONE-ACETAMINOPHEN Inactive BACTRIM DS 800-160 MG TABS by mouth twice a day 11/05 BACTRIM DS 800-160 MG TABS SULFAMETHOXAZOLE-TRIMETHOPRIM Inactive AMOXICILLIN 875 MG TABS 1 tab by mouth twice daily 201 07/18/07 AMOXICILLIN 875 MG TABS 173446 AMOXICILLIN Inactive KEFLEX 500 MG CAP 1 po tid x 10 days KEFLEX 500 MG CAP 580125 CEPHALEXIN Inactive AMOXICILLIN 875 MG TABS 1 tab by mouth twice daily 201 07/19/27 AMOXICILLIN 875 MG TABS 082242 AMOXICILLIN Inactive AMOXICILLIN 875 MG TABS 1 tab by mouth twice daily 08/09/13 AMOXICILLIN 875 MG TABS 285192 AMOXICILLIN Inactive CIPRO 500 MG TAB 1 tablet by mouth twice daily CIPRO 500 MG TAB 111577 CIPROFLOXACIN HCL Inactive BACTRIM DS 800-160 MG TAB 1 tab by mouth twice daily 2 BACTRIM DS 800-160 MG TAB TRIMETHOPRIM-SULFAMETHOXAZOLE Inac tive LEVAQUIN 500 MG TABS 1 PO q day x 7 days LEVAQUIN 500 MG TABS 710713 LEVOFLOXACIN Inactive Advance Directives Directive Description Start Date PERMISSION TO SHARE Immunizations Vaccine Administration Date Value Standard Alf cription Seasonal influenza vaccine, injectable, containing preservative, for > 3 years old (Afluria, FluLaval, Fluzone, Fluvirin, Fluarix, Agriflu(>= 18 yo)) Fluzone (>3 yrs.) [[id number]] Influenza, seasonal, inject able Seasonal influenza vaccine, injectable, preservative free, for > 3 years old (Afluria, FluLaval, Fluzone, Fluvirin, Fluarix, Agriflu(>= 18 yo)) Fluzone preservative free (>3 yrs.) [[id number]] Influenza, seasonal, injectable, preservative free Seasonal influenza vaccine, injectable, containing preservative, for > 3 years old (Afluria, FluLaval, Fluzone, Fluvirin, Fluarix, Agriflu(>= 18 yo)) Fluzone (>3 yrs.) [[id number]] Influenza, seasonal, inject able Seasonal influenza vaccine, injectable, containing preservative, for > 3 years old (Afluria, FluLaval, Fluzone, Fluvirin, Fluarix, Agriflu(>= 18 yo)) Fluzone (>3 yrs.) [[id number]] Influenza, seasonal, inject able dT (Diphtheria and [...] ... - Chemistry sodium, serum 140 mmol/L 575-824 9525/02/24 potassium, serum 4.3 mmol/L 3.5-5.2 chloride, serum [...] 4.3-6.0 Lab Report: T3, TOTAL, INSULIN - Soil Analyst ry triiodothyronine, serum 78 ng/dL 76-181 Lab [...] mg/dL Encounters Code Encounter Date Provider Facility CPT-79199 Level 3 Est. Patient 14:11:58 CDT Kalpesh goins MD [facility] CPT-04214 Level 3 Est. Patient 16:50:00 CDT Michelle MERCADO [facility] CPT-09618 Level 3 Est. 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 Patient 16:31:47 INSURANCE SALES PRODUCER Shola MCGILL [facility] CPT-21674 Level 3 Est. Patient 17:51:10 INSURANCE SALES PRODUCER Abhinav Galvan MD [facility] CPT-80169 Level 4 Est. Patient 12:54:56 INSURANCE SALES PRODUCER Kalpesh goins MD [facility] CPT-28921 Level 4 Est. Patient 12:53:56 INSURANCE SALES PRODUCER Kalpesh goins MD [facility] CPT-95714 Level 3 Est. Patient 17:56:58 CDT Shola Wright [facility] CPT-76496 Level 3 Est. Patient 14:26:20 CDT Janak butcher [facility] CPT-91823 Level 3 Est. Patient 09:38:41 CDT Shola Keesha Wright [facility] CPT-31996 Level 3 Est. Patient 14:45:26 CDT Edilberto tiwari [facility]-77852 Level 3 Est. Patient 10:51:33 [facility] Level 3 Est. Patient 11:57:55 INSURANCE SALES PRODUCER Shola Thao Adriana [facility] CPT-79955 Level 3 Est. Patient 09:53:33 INSURANCE SALES PRODUCER Edilberto tiwari [facility] CPT-67245 Level 3 Est. Patient 14:42:54 INSURANCE SALES PRODUCER Abhinav Galvan MD [facility] CPT-27056 Level 3 Est. Patient 15:10:02 CDT Janak butcher [facility] CPT-34420 Level 3 Est. Patient 15:20:20 CDT Theo dennis MD [facility] CPT-93237 Level 2 Est. Patient 14:08:57 CDT Kalpesh goins MD [facility]-61725 Level 3 Est. Patient 13:56:19 CDT Abdirahman Rios MD [facility] CPT-23805 Level 3 Est. Patient 13:59:37 CDT Abdirahman Rios MD [facility] CPT-61156 Level 2 Est. Patient 14:44:59 CDT Kalpesh goins MD [facility] CPT-59270 Level 3 Est. Patient 06:06:23 CDT Edilberto tiwari DO [facility] CPT-79318 Level 3 Est. Patient 15:23:54 CDT Abdirahman Rios MD [facility] CPT-67390 Level 3 Est. Patient 15:43:49 CDT Abdirahman Rios MD [facility] CPT-50856 Level 3 Est. 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 Patient 08:13:35 INSURANCE SALES PRODUCER Abdirahman Rios MD [facility] CPT-85464 Level 2 Est. Patient 09:36:42 INSURANCE SALES PRODUCER Abdirahman Rios MD [facility] CPT-11288 Level 3 Est. Patient 10:56:43 CDT Abdirahman Rios MD [facility] CPT-80168 Level 3 Est. Patient 18:24:52 CDT Abdirahman Rios MD [facility] CPT-72947 Level 3 Est. 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 CPT-40531 Postop F/U Visit 19:02:59 [employer]URANCE SALES PRODUCER CPT-31702 Postop F/U Visit 12:04:54 INSURANCE SALES PRODUCER CPT-05008 Administration single or combination vac cine inc oral 15:56:43 CDT CPT-31725 Influenza split virus > age 3 15:56:43 CDT CPT-13408 Hand comp min 3V 14:25:19 CDT CPT-02778 Postop F/U Visit 21:40:51 CDT CPT-21290 Postop F/U Visit 10:58:43 CDT CPT-62375 Administration single or combination vac cine inc oral 12:33:54 INSURANCE SALES PRODUCER CPT-31101 Influenza Preservative Free split virus >age 3 12:33:54 INSURANCE SALES PRODUCER CPT-96900 Administration single or combination vac cine inc oral 09:30:51 CDT CPT-63070 Influenza split virus > age 3 09:30:51 CDT CPT-41351 Postop F/U Visit 15:14:53 CDT CPT-28088 Postop F/U Visit 13:50:14 CDT CPT-89366 Postop F/U Visit 13:34:52 CDT CPT-OV Office Visit 16:55:03 CDT CPT-86734 Lamar of cervix w bx ECC 13:32:50 CDT 10/19 CPT-J1885 Toradol 60 mg (Ketorolac) 15:31:59 CDT 2011 CPT-J1885 Toradol 60 mg (Ketorolac) 15:23:54 CDT 2011 CPT-32726 Visit 11:34:37 [employer]ANCE SALES PRODUCER CPT-57074 Visit 10:52:39 INSURANCE SALES PRODUCER CPT-51835 Visit 10:12:02 INSURANCE SALES PRODUCER CPT-91227 Visit 11:22:43 INSURANCE SALES PRODUCER CPT-43405 Visit 11:24:12 INSURANCE SALES PRODUCER CPT-64158 Visit 10:47:05 INSURANCE SALES PRODUCER CPT-OV Office Visit 10:26:16 INSURANCE SALES PRODUCER CPT-OV Office Visit 15:34:31 INSURANCE SALES PRODUCER CPT-24146 Visit 10:42:08 INSURANCE SALES PRODUCER CPT-01209 Visit 10:52:45 INSURANCE SALES PRODUCER CPT-000 Give Appropriate Flu Vaccine 16:56:41 CDT 2 CPT-32703 Administration single or combination vac cine inc oral 10:33:21 CDT CPT-14998 Influenza split virus > age 3 10:33:21 CDT CPT-50783 Visit 13:23:09 CDT CPT-49227 Visit 18:24:52 CDT CPT-47032 Sono OB comp > 14 weeks 12:07:49 CDT 04/07
--- OUTSIDE RECORDS SUMMARY | 2020-01-18 16:51 | XMS REPORT ---
Author Author [facility] Medic al Staff, TOMY Rashid Organization [facility] Address [address], [place] [id number] Phone [phone] Care Team Providers Care Interventional Tech Name Role Phone CHRISTOPHER YORK, CAROLEE PP [phone] Summary purpose TRANSITION OF CARE AUTO GENERATION Chief Complaint and Reason for Visit Admit Diagnosis 1 E/O HIDRANITIS SPOTS BUTTOCK & APRIL Admit Diagnosis 2 GROINS Problem list No authorized problems tracked for [...] 10 mg-325 mg tablet 1 tablet oral VA N Every 12 Hours Current Patient recall [...] Finding Observation Time Hearing Prob Loc none 42-00-885272:05 Vision Problems yes 40-76-893363:05 Vision Correct Dev glasses 60-40-333025:05 Ambulation Asst Dev none 94-03-652682:05 Range of Motion full :30 Muscle Strength RUE 5 ROM full resist 89-63-188698:30 Muscle Strength RLE 5 ROM full resist 34-81-992106:30 Muscle Strength LUE 5 ROM full resist :30 Muscle Strength LLE 5 ROM full resist :30 Transfers assist x 1 06-43-220459:30 Ambulation in room :30 Balance steady :30 Bathing Assistance none 74-49-078537:05 Eating Assistance none :05 Dressing Assistance none :05 Toileting Assistance none :05 Transfer Assistance none :05 Decline Slf Care/Mob no :05 Phys Cond Stable yes :05 Nutrition normal 73-04-449984:30 Diet regular 33-15-507330:30 Oral Cavity moist and intact :30 Teeth dentures 87-98-051948:30 Dental Hygiene poor 50-34-611837:30 Abdomen Appearance round 78-83-898278:30 Abdomen soft :30 Bowel Sounds present :30 NG Tube no :30 Feeding Tube none :30 Ramírez no 87-01-651683:30 Cont Bladder Irr no :30 Ostomy no 77-01-784948:30 Quality sym/unlabored :30 Cough non-productive :30 Secretions yes :30 Secretion Consist thin 11-29-169055:30 Secretion Color clear 41-68-785183:30 Breath Sounds RUL clear :30 Breath Sounds RML clear :30 Breath Sounds RLL clear :30 Breath Sounds SARA clear :30 Breath Sounds LLL clear 03-96-229525:30 Airway natural :30 Chest Tube no 17-85-866161:30 Oxygen no 52-78-056060:49 C-PAP no 11-60-881531:30 BI-PAP no :30 Temp >100.4 no : Temp <96.8 no :30 Chills with rigors no : HR > 90bpm no : Respirations > 20 no : Systolic <90 no :30 headache stiff neck no :30 Rapid Resp no :30 IV Site Location R hand :45 IV Type peripheral :45 IV Site Information discontinued :45 IV Site Start Attmpt 2 times Comment: lidocaine used :40 IV Site Isael 20 :45 IV Site Appearance WNL 95-34-333239:40 IV Site Color clear :40 IV Site Patent yes [id number]:40 Dressing Type occlusive 23-54-949976:40 Nursing Note Pt back from [place]. Reassessmen t complete. VSS. Pt awake and alert. Mt. Dew provided per request. Denies further need. Call light in reach. 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 Hospital discharge instructions Valuables no Follow up appt already scheduled
--- OUTSIDE RECORDS SUMMARY | 2020-01-18 16:51 | XMS REPORT | Clinical Summary ---
[...] LOCAL INFECTION SKIN&SUBCUTANEOUS TISSUE 686.9 08/09 Resolved Abdriahman Rios MD Unspecified local in fection of [...] Inactive John Bernsteindaniel Dysmenorrhea, severe ICD-625.3 Inactive Kalpesh Dong MD [...] 1 every 6 hours as needed OXYCODONE-ACETAMINOPHEN [id number] No Longer Active Shola MCGILL Active LC-5 LIDOCAINE 5 % CREA apply 1 time daily to affected area 2013 LIDOCAINE (ANORECTAL) 45760628441 No Longer Active Hira muniz [employer] Active HYDROCODONE-ACETAMINOPHEN 5-325 MG TABS 2 tablets by m outh every 8 hours as needed for pain HYDROCODONE-ACETAMINOPHEN [id number] Acti ve Shola MCGILL Active HYDROCODONE-ACETAMINOPHEN 10-325 MG TABS 1 by mouth ev chaka 8 hours as needed for pain HYDROCODONE-ACETAMINOPHEN 68876433638 No Longer Active Jillina Frazell [employer] Active LORATADINE 10 MG TABS 1 tablet by mouth daily L ORATADINE 68073055469 No Longer Active Jillina Frazell [employer] Active DIFLUCAN 150 MG TAB 1 qODay x 2 doses FLUCONAZO LE 88415675246 No Longer Active Jillina Frazell [employer] Active CYCLOBENZAPRINE HCL 10 MG TABS 1/2 - 1 tab PO tid PRN back p ain, muscle spasm CYCLOBENZAPRINE HCL 53833350689 No Longer Active Karen herson Frazell [employer] Active AUGMENTIN 875-125 MG TAB 1 tab by mouth twice daily with food 20 22/05/07 AMOXICILLIN-POT CLAVULANATE 34555711904 No Longer Active Loida Rios MD Active MOBIC 15 MG TABS 1 tab daily MELOXICAM 800410281 14 No Longer Active Abdirahman Rios MD Active PERCOCET 7.5-325 MG TABS 1 PO tid PRN pain OXYCODONE-ACETAMINOPHEN 06552335805 No Longer Active Abdirahman Rios MD Active LIDODERM 5 % PTCH One patch to painful area DC N. On for 12 hrs, off for 12 hrs. LIDOCAINE 08593095870 No Longer Active Abdirahman Rios MD Active PERCOCET 7.5-325 MG TABS 1 PO q 8 hrs PRN pain OXYCODONE-ACETAMINOPHEN 65414716123 No Longer Active Shola MCGILL Active HYDROCODONE-ACETAMINOPHEN 7.5-325 MG TABS 1 by mouth e very 6 hours as needed for pain HYDROCODONE-ACETAMINOPHEN 04936466771 No Longer Active Good Julian MD Active CLINDAMYCIN HCL 300 MG CAPS 1 po QID x 7 days CLINDAMYCIN HCL 58083167889 No Longer Active Abdirahman Rios MD Activ e BACTRIM DS 800-160 MG TABS 1 po BID x 7 days 5 SULFAMETHOXAZOLE-TRIMETHOPRIM 52984619813 No Longer Active Abdirahman Rios MD Active ENDOCET 10-325 MG TABS 1 q 6 hr prn OXYCODONE-ACETAMINOPHEN 31870678247 No Longer Active Abdirahman Rios MD Active IBUPROFEN 800 MG TABS 1 tid prn IBUPROFEN 725780 49795 No Longer Active Abdirahman Rios MD Active BACTRIM DS 800-160 MG TABS by mouth twice a day 11/05 SULFAMETHOXAZOLE-TRIMETHOPRIM 63401882978 No Longer Active Good Julian MD Active HYDROCODONE-ACETAMINOPHEN 7.5-325 MG TABS 1 four times a day as needed for pain HYDROCODONE-ACETAMINOPHEN 83441481536 No Longer Activ e Good Julian MD Active KEFLEX 500 MG CAP 1 tab po tid CEPHALEXIN 481569 28485 No Longer Active Hira Moser APRN Active IBUPROFEN 800 MG TAB 1 pill three times daily as needed for pain IBUPROFEN 24178800497 No Longer Active Kalpesh Dong MD Active PROMETHAZINE-CODEINE 6.25-10 MG/5ML SYRP 1 tsp every 6 hrs prn c ough PROMETHAZINE-CODEINE 16085449983 No Longer Active Kalpesh Carr Active ALPRAZOLAM 0.5 MG TABS 1 PO bid PRN ALPRAZOLAM 135006 58567 Active Edilberto Marino DO Active HYDROCODONE-ACETAMINOPHEN 5-325 MG TABS 1 tab by mouth every 6 hours as needed HYDROCODONE-ACETAMINOPHEN 94569729659 No Longer Activ e Shola MCGILL Active CEPHALEXIN 500 MG CAPS 1 PO bid x 7 days CEPHAL EXIN 82973702557 No Longer Active Shola MCGILL Active BACTRIM DS 800-160 MG TAB 1 tab by mouth twice daily 2 TRIMETHOPRIM-SULFAMETHOXAZOLE 93996820660 No Longer Active Kalpesh Dong MD Active HYDROCODONE-ACETAMINOPHEN 5-325 MG TABS 1 PO tid PRN pain 5 HYDROCODONE-ACETAMINOPHEN 97606460281 No Longer Active Abhinav Galvan MD Active IMPLANON 68 MG IMPL IMPLANTED IN LEFT ARM ETONO GESTREL 41619515099 No Longer Active Jillherson Perazal [employer]NER Active AMOXICILLIN 500 MG TABS 2 tabs PO bid x 10 d AM OXICILLIN 05130337562 No Longer Active Kalpesh Dong MD Active LEVAQUIN 500 MG TABS 1 PO q day x 7 days LEVOFL OXACIN 35927103880 No Longer Active Shola MCGILL Active PROAIR HFA 108 (90 BASE) MCG/ACT AERS 2 puff q 4-6 hrs PRN ALBUTEROL SULFATE 43962281224 Active Edilberto Marino DO Active FIORICET 50-325-40 MG TABS 2 PO q 8 hrs PRN FOSTER OBNANFSACY-OFTI-SRAPNGUU Active Shola MCGILL Active AMITRIPTYLINE HCL 25 MG TAB 1 tab by mouth daily 60 minutes before bedtime AMITRIPTYLINE HCL 93996885320 No Longer Active Shola MCGILL Active LORTAB 5 5-500 MG TABS 1/2 to 1 tablet by mouth go ry 6 hours as needed for pain HYDROCODONE-ACETAMINOPHEN 80687996239 No Longer Active Shola MCGILL Active CEPHALEXIN 500 MG TABS Take one by mouth four times daily, morning, noon, early evening and bedtime. CEPHALEXIN 29115581942 No Long er Active Matthewelias Joyjanee ANDRADEN Active TYLENOL/CODEINE #3 300-30 MG TAB 1-2 po q6hr PRN Pain ACETAMINOPHEN-CODEINE 83978181961 No Longer Active Edilberto Marino DO Active PRISTIQ 50 MG [id number]-[id number] 1 po qd DESVENLAFAXI NE SUCCINATE 90396439860 No Longer Active Edilberto Marino DO Active PENICILLIN V POTASSIUM 500 MG TAB 1 four times a day 2 PENICILLIN V POTASSIUM 38677906868 No Longer Active Edilberto Marino DO Active DOXYCYCLINE HYCLATE 100 MG CAPS Take one (1) tablet by mouth twice a day DOXYCYCLINE HYCLATE 32760450629 No Longer Active Ronnie Galvan MD Active HYDROCODONE-ACETAMINOPHEN 5-325 MG TABS 1 po q 6hr PRN Pain 2011 HYDROCODONE-ACETAMINOPHEN 90092190055 No Longer Active Patri joan Perez RN Active BACTRIM DS 800-160 MG TAB 1 tab by mouth twice daily 2 TRIMETHOPRIM-SULFAMETHOXAZOLE 94990551339 No Longer Active Kalpesh Dong MD Active LORTAB 5 5-500 MG TABS 1/2 to 1 tablet by mouth go ry 4 hours as needed for pain HYDROCODONE-ACETAMINOPHEN 00866019597 No Longer Active Kalpesh Dong MD Active GENERESS FE 0.8-25 MG-MCG CHEW Take one by mouth daily NORETHIN-ETH ESTRADIOL-FE 32211594988 No Longer Active Kalpesh Dong MD Active HYDROCODONE-ACETAMINOPHEN 7.5-500 MG TABS 1-2 every 4 hours as needed HYDROCODONE-ACETAMINOPHEN 29222545107 No Longer Activ e Kalpesh Dong MD Active FERROUS SULFATE 325 (65 FE) MG TABS 1 tablet by mouth twice yung y FERROUS SULFATE 69967629648 No Longer Active Kalpesh Dong MD Active IBUPROFEN 600 MG TAB 1 po q6-8hr PRN IBUPROFEN 65551552506 No Longer Active Kalpesh Dong MD Active SPIRONOLACTONE 25 MG TAB 1 tablet by mouth daily 01/22 SPIRONOLACTONE 63919544279 No Longer Active Kalpesh Dong MD Acti ve HYDROCODONE-ACETAMINOPHEN 7.5-325 MG TABS 1 po QID PRN Pain 2011 HYDROCODONE-ACETAMINOPHEN 91711318525 No Longer Active Kalpesh Dong MD Active CLINDAMYCIN HCL 300 MG CAPS 1 po q6hr x 7 days CLINDAMYCIN HCL 23336051141 No Longer Active Edilberto aMrino DO Active PREDNISONE 20 MG TAB 2 tabs daily for 4 days, 1 t ab daily for 4 days, 1/2 tab daily for 4 days PREDNISONE 11824628473 No Longer Active Edilberto Marino DO Active PERCOCET 5-325 MG TABS 1 tablet by mouth every 6 hours as ne eded for pain OXYCODONE-ACETAMINOPHEN 61519079748 No Longer Active Abdirahman Rios MD Active VITAMINS TABS Take one by mouth daily MV & MIN W/FE-FA TABS 32419938971 No Longer Active Abdirahman Rios MD Active LUIS 3-0.02 MG TABS 1 tablet by mouth daily as directed DROSPIRENONE-ETHINYL ESTRADIOL 68901361385 No Longer Active Abdirahman Rios MD Active LORATADINE 10 MG TABS 1 tablet by mouth daily L ORATADINE 98527143009 No Longer Active Kalpesh Dong MD Active HYDROCODONE-ACETAMINOPHEN 5-325 MG TABS 1 po q 6hr PRN Pain 2010 HYDROCODONE-ACETAMINOPHEN 26386008031 No Longer Active Edilberto Marino DO Active BACTRIM DS 800-160 MG TAB 1 tab by mouth twice daily 2 TRIMETHOPRIM-SULFAMETHOXAZOLE 94306229662 No Longer Active Abdirahman Rios MD Active 28-0.8 MG TABS Take one by mouth daily 09/20 VIT-FE FUMARATE-FA 34520378141 No Longer Active Abdirahman Rios MD Active CIPRO 500 MG TAB 1 tablet by mouth twice daily CIPROFLOXACIN HCL 75552046368 No Longer Active Abdirahman Rios MD Active BENADRYL 25 MG CAP 1 po q8hr PRN Congestion DIPHENHYDRAMINE HCL 62560414246 No Longer Active Abdirahman Rios MD Active ZOLOFT 50 MG TAB 1 po qd SERTRALINE HCL 114458 31278 No Longer Active Abdirahman Rios MD Active AMOXICILLIN 875 MG TABS 1 tab by mouth twice daily 201 08/09/13 AMOXICILLIN 94639895321 No Longer Active Abdirahman Rios MD Activ e AMOXICILLIN 875 MG TABS 1 tab by mouth twice daily 201 07/19/27 AMOXICILLIN 39230194430 No Longer Active Abdirahman Rios MD Activ e BACTRIM DS 800-160 MG TAB 2 tab by mouth twice daily 2 TRIMETHOPRIM-SULFAMETHOXAZOLE 42425136856 No Longer Active Abdirahman Rios MD Active KEFLEX 500 MG CAP 1 po tid x 10 days CEPHALEXIN 17429631622 No Longer Active Abdirahman Rios MD Active AMOXICILLIN 875 MG TABS 1 tab by mouth twice daily 201 07/18/07 AMOXICILLIN 40954663814 No Longer Active Abdirahman Rios MD Activ e BACTRIM DS 800-160 MG TAB 2 tab by mouth twice daily 2 BACTRIM DS 800-160 MG TAB TRIMETHOPRIM-SULFAMETHOXAZOLE Inactive ZOLOFT 50 MG TAB 1 po qd ZOLOFT 50 MG TAB 3129 41 SERTRALINE HCL Inactive BENADRYL 25 MG CAP 1 po q8hr PRN Congestion BENADRYL 25 MG CAP 2331562 DIPHENHYDRAMINE HCL Inactive 28-0.8 MG TABS Take one by mouth daily 09/20 28-0.8 MG TABS VIT-FE FUMARATE-FA Inactive HYDROCODONE-ACETAMINOPHEN 5-325 MG TABS 1 po q 6hr PRN Pain 2010 HYDROCODONE-ACETAMINOPHEN 5-325 MG TABS 394700 HYDROCODONE-ACETAMINOPHEN Inactive LORATADINE 10 MG TABS 1 tablet by mouth daily LORATADINE 10 MG TABS 895746 LORATADINE Inactive LUIS 3-0.02 MG TABS 1 tablet by mouth daily as directed LUIS 3-0.02 MG TABS DROSPIRENONE-ETHINYL ESTRADIOL Inactive VITAMINS TABS Take one by mouth daily VITAMINS TABS MV & MIN W/FE-FA TABS Inactive PERCOCET 5-325 MG TABS 1 tablet by mouth every 6 hours as ne eded for pain PERCOCET 5-325 MG TABS 6792174 OXYCODONE-ACETAMIN OPHEN Inactive PREDNISONE 20 MG TAB 2 tabs daily for 4 days, 1 t ab daily for 4 days, 1/2 tab daily for 4 days PREDNISONE 20 MG TAB 103573 PREDNISON E Inactive CLINDAMYCIN HCL 300 MG CAPS 1 po q6hr x 7 days CLINDAMYCIN HCL 300 MG CAPS 999468 CLINDAMYCIN HCL Inactive HYDROCODONE-ACETAMINOPHEN 7.5-325 MG TABS 1 po QID PRN Pain 2011 HYDROCODONE-ACETAMINOPHEN 7.5-325 MG TABS 805331 HYDROCODONE-ACETAMINOPHEN Inactive SPIRONOLACTONE 25 MG TAB 1 tablet by mouth daily 01/22 SPIRONOLACTONE 25 MG TAB 376290 SPIRONOLACTONE Inactive IBUPROFEN 600 MG TAB 1 po q6-8hr PRN IBUPROFEN 600 MG TAB 458943 IBUPROFEN Inactive FERROUS SULFATE 325 (65 FE) MG TABS 1 tablet by mouth twice yung y FERROUS SULFATE 325 (65 FE) MG TABS 952072 FERROUS SULF ATE Inactive HYDROCODONE-ACETAMINOPHEN 7.5-500 MG [...] PRN Pain 2011 HYDROCODONE-ACETAMINOPHEN 5-325 MG TABS 526647 HYDROCODONE-ACETAMINOPHEN Inactive DOXYCYCLINE HYCLATE 100 MG CAPS Take one (1) tablet by mouth twice a day DOXYCYCLINE HYCLATE 100 MG CAPS 756914 DOXYCYCLINE HYCLATE Inactive PENICILLIN V POTASSIUM 500 MG TAB 1 four times a day 2 PENICILLIN V POTASSIUM 500 MG TAB 153700 PENICILLIN V POTASSIUM [place] PRISTIQ 50 MG [id number] 1 po qd PRISTIQ 50 MG [id number] DESVENLAFAXINE SUCCINATE Inactive TYLENOL/CODEINE #3 300-30 MG TAB 1-2 po q6hr PRN Pain TYLENOL/CODEINE #3 300-30 MG TAB 962403 ACETAMINOPHEN-CODEINE Inact krishna CEPHALEXIN 500 MG TABS Take one by mouth four times daily, morning, noon, early evening and bedtime. CEPHALEXIN 500 MG TABS 347226 CEPHALEXIN Inactive LORTAB 5 5-500 MG TABS 1/2 to 1 tablet by mouth go ry 6 hours as needed for pain LORTAB 5 5-500 MG TABS HYDROCODONE-A CETAMINOPHEN Inactive AMITRIPTYLINE HCL 25 MG TAB 1 tab by mouth daily 60 minutes before bedtime AMITRIPTYLINE HCL 25 MG TAB 848152 AMITRIPTYLINE HCL Inactive AMOXICILLIN 500 MG TABS 2 tabs PO bid x 10 d 7 AMOXICILLIN 500 MG TABS 587549 AMOXICILLIN Inactive IMPLANON 68 MG IMPL IMPLANTED IN LEFT ARM IMPLANON 68 MG IMPL ETONOGESTREL Inactive HYDROCODONE-ACETAMINOPHEN 5-325 MG TABS 1 PO tid PRN pain 5 HYDROCODONE-ACETAMINOPHEN 5-325 MG TABS 529692 HYDROCODONE-ACETAMIN OPHEN Inactive BACTRIM DS 800-160 MG TAB 1 tab by mouth twice daily 2 BACTRIM DS 800-160 MG TAB TRIMETHOPRIM-SULFAMETHOXAZOLE Inac tive CEPHALEXIN 500 MG CAPS 1 PO bid x 7 days CEPHALEXIN 500 MG CAPS 319989 CEPHALEXIN Inactive HYDROCODONE-ACETAMINOPHEN 5-325 MG TABS 1 tab by mouth every 6 hours as needed HYDROCODONE-ACETAMINOPHEN 5-325 MG TABS 085769 HYDROCODONE-ACETAMINOPHEN Inactive PROMETHAZINE-CODEINE 6.25-10 MG/5ML SYRP 1 tsp every 6 hrs prn c ough PROMETHAZINE-CODEINE 6.25-10 MG/5ML SYRP 683066 PROMETH AZINE-CODEINE Inactive IBUPROFEN 800 MG TAB 1 pill three times daily as needed for pain IBUPROFEN 800 MG TAB 092337 IBUPROFEN Inactive KEFLEX 500 MG CAP 1 tab po tid KEFLEX 500 MG CAP 602851 CEPHALEXIN Inactive HYDROCODONE-ACETAMINOPHEN 7.5-325 MG TABS 1 four times a day as needed for pain HYDROCODONE-ACETAMINOPHEN 7.5-325 MG TABS 451079 HYDROCODONE-ACETAMINOPHEN Inactive BACTRIM DS 800-160 MG TABS by mouth twice a day 11/05 BACTRIM DS 800-160 MG TABS SULFAMETHOXAZOLE-TRIMETHOPRIM Inactive IBUPROFEN 800 MG TABS 1 tid prn IBUPROFEN 800 MG TABS 241388 IBUPROFEN Inactive ENDOCET 10-325 MG TABS 1 q 6 hr prn ENDOC ET 10-325 MG TABS 8915561 OXYCODONE-ACETAMINOPHEN Inactive HYDROCODONE-ACETAMINOPHEN 7.5-325 MG TABS 1 by mouth e very 6 hours as needed for pain HYDROCODONE-ACETAMINOPHEN 7.5-325 MG TABS 782311 HYDROCODONE-ACETAMINOPHEN Inactive PERCOCET 7.5-325 MG TABS 1 PO q 8 hrs PRN pain PERCOCET 7.5-325 MG TABS 6894965 OXYCODONE-ACETAMINOPHEN Inactive LIDODERM 5 % PTCH One patch to painful area DC N. On for 12 hrs, off for 12 hrs. LIDODERM 5 % PTCH 5772099 LIDOCAINE Inactiv e PERCOCET 7.5-325 MG TABS 1 PO tid PRN pain PERCOCET 7.5- 325 MG TABS 4784687 OXYCODONE-ACETAMINOPHEN Inactive MOBIC 15 MG TABS 1 tab daily MOBIC 15 MG TABS 15 2695 MELOXICAM Inactive CYCLOBENZAPRINE HCL 10 MG TABS 1/2 - 1 tab PO tid PRN back p ain, muscle spasm CYCLOBENZAPRINE HCL 10 MG TABS 021880 CYCLOBENZA JOSEPH HCL Inactive LORATADINE 10 MG TABS 1 tablet by mouth daily LORATADINE 10 MG TABS 245476 LORATADINE Inactive HYDROCODONE-ACETAMINOPHEN 10-325 MG TABS 1 by mouth ev chaka 8 hours as needed for pain HYDROCODONE-ACETAMINOPHEN 10-325 MG TABS 677704 HYDROCODONE-ACETAMINOPHEN Inactive LC-5 LIDOCAINE 5 % CREA apply 1 time daily to affected area 2013 LC-5 LIDOCAINE 5 % CREA LIDOCAINE (ANORECTAL) In active PERCOCET 5-325 MG TAB 1 every 6 hours as needed PERCOCET 5-325 MG TAB 8039104 OXYCODONE-ACETAMINOPHEN Inactive AMOXICILLIN 875 MG TABS 1 tab by mouth twice daily 201 07/18/07 AMOXICILLIN 875 MG TABS 961400 AMOXICILLIN Inactive KEFLEX 500 MG CAP 1 po tid x 10 days KEFLEX 500 MG CAP 668902 CEPHALEXIN Inactive AMOXICILLIN 875 MG TABS 1 tab by mouth twice daily 201 07/19/27 AMOXICILLIN 875 MG TABS 930989 AMOXICILLIN Inactive AMOXICILLIN 875 MG TABS 1 tab by mouth twice daily 201 08/09/13 AMOXICILLIN 875 MG TABS 083512 AMOXICILLIN Inactive CIPRO 500 MG TAB 1 tablet by mouth twice daily CIPRO 500 MG TAB 638860 CIPROFLOXACIN HCL Inactive BACTRIM DS 800-160 MG TAB 1 tab by mouth twice daily 2 BACTRIM DS 800-160 MG TAB TRIMETHOPRIM-SULFAMETHOXAZOLE Inac tive LEVAQUIN 500 MG TABS 1 PO q day x 7 days LEVAQUIN 500 MG TABS 332785 LEVOFLOXACIN Inactive CLINDAMYCIN HCL 300 MG CAPS 1 po QID x 7 days CLINDAMYCIN HCL 300 MG CAPS 717824 CLINDAMYCIN HCL Inactive AUGMENTIN 875-125 MG TAB 1 tab by mouth twice daily with food 20 22/05/07 AUGMENTIN 875-125 MG TAB 202490 AMOXICILLIN-POT CLAVULA [place] Inactive DIFLUCAN 150 MG TAB 1 qODay x 2 doses DIFLUCAN 150 MG TAB 873940 FLUCONAZOLE Inactive Advance Directives Directive Description Start Date PERMISSION TO SHARE Immunizations Vaccine Administration Date Value Standard Alf cription Seasonal influenza vaccine, injectable, containing preservative, for > 3 years old (Afluria, FluLaval, Fluzone, Fluvirin, Fluarix, Agriflu(>= 18 yo)) Fluzone (>3 yrs.) [[id number]] Influenza, seasonal, inject able Seasonal influenza vaccine, injectable, preservative free, for > 3 years old (Afluria, FluLaval, Fluzone, Fluvirin, Fluarix, Agriflu(>= 18 yo)) Fluzone preservative free (>3 yrs.) [[id number]] Influenza, seasonal, injectable, preservative free Seasonal influenza vaccine, injectable, containing preservative, for > 3 years old (Afluria, FluLaval, Fluzone, Fluvirin, Fluarix, Agriflu(>= 18 yo)) Fluzone (>3 yrs.) [[id number]] Influenza, seasonal, inject able Seasonal influenza vaccine, injectable, containing preservative, for > 3 years old (Afluria, FluLaval, Fluzone, Fluvirin, Fluarix, Agriflu(>= 18 yo)) Fluzone (>3 yrs.) [[id number]] Influenza, seasonal, inject able dT (Diphtheria and [...] ... - Chemistry sodium, serum 140 mmol/L 488-697 8680/02/24 potassium, serum 4.3 mmol/L 3.5-5.2 chloride, serum [...] 4.3-6.0 Lab Report: T3, TOTAL, INSULIN - [employer] ry triiodothyronine (T3), serum 78 ng/dL 76-181 Office Visit: low blood sugars - Chemis try cholesterol, target level 200 mg/dL triglyceride, target level 200 mg/dL HDL cholesterol, serum, target level 35 mg/dL LDL target level 100 mg/dL Encounters Code Encounter Date Provider Facility CPT-31910 Level 3 Est. Patient 14:03:08 CONTOUR SANDER Abdirahman Rios MD [facility] CPT-37171 Level 3 Est. Patient 18:12:34 CDT Shola Wright [facility] CPT-72890 Level 3 Est. Patient 19:34:46 CDT Shola Wright [facility] CPT-41048 Level 3 Est. Patient 14:19:37 CDT Abdirahman Rios MD [facility] CPT-86422 Level 3 Est. Patient 14:11:58 CDT Kalpesh goins MD [facility] CPT-08975 Level 3 Est. Patient 16:50:00 CDT Michelle MERCADO [facility] CPT-28999 Level 3 Est. Patient 17:11:32 CONTOUR SANDER Brandie bates MD PhD [facility] CPT-23927 Level 3 Est. Patient 16:31:47 CONTOUR SANDER Shola Wright [facility] CPT-48052 Level 3 Est. Patient 17:51:10 CONTOUR SANDER Abhinav Galvan MD [facility] CPT-64374 Level 4 Est. Patient 12:54:56 CONTOUR SANDER Kalpesh goins MD [facility] CPT-86478 Level 4 Est. Patient 12:53:56 CONTOUR SANDER Kalpesh goins MD [facility]-19861 Level 3 Est. Patient 17:56:58 CDT Shola Keesha Wright [facility] CPT-95778 Level 3 Est. Patient 14:26:20 CDT Janak butcher [facility] CPT-41828 Level 3 Est. Patient 09:38:41 CDT Shola Thao Adriana [facility] CPT-12243 Level 3 Est. Patient 14:45:26 CDT Edilberto tiwari [facility] CPT-66113 Level 3 Est. Patient 10:51:33 [facility] Patient 11:57:55 CONTOUR SANDER Shola Houghsabi [facility] CPT-72767 Level 3 Est. Patient 09:53:33 CONTOUR SANDER Edilberto tiwari [facility] CPT-66127 Level 3 Est. Patient 14:42:54 CONTOUR SANDER Abhinav Galvan MD [facility] CPT-63172 Level 3 Est. Patient 15:10:02 CDT Janak butcher [facility] CPT-27594 Level 3 Est. Patient 15:20:20 CDT Theo dennis MD [facility] CPT-05732 Level 2 Est. Patient 14:08:57 CDT Kalpesh goins MD [facility]-95773 Level 3 Est. Patient 13:56:19 CDT Abdirahman Rios MD [facility] CPT-34841 Level 3 Est. Patient 13:59:37 CDT Abdirahman Rios MD [facility] CPT-71876 Level 2 Est. Patient 14:44:59 CDT Kalpesh goins MD [facility]-57256 Level 3 Est. Patient 06:06:23 CDT Edilberto tiwari [facility] CPT-48371 Level 3 Est. Patient 15:23:54 CDT Abdirahman Rios MD [facility] CPT-40215 Level 3 Est. Patient 15:43:49 CDT Abdirahman Rios MD [facility] CPT-67424 Level 3 Est. Patient 12:46:47 CONTOUR SANDER Abdirahman Rios MD [facility] CPT-56716 Level 3 Est. Patient 08:13:35 CONTOUR SANDER Abdirahman Rios MD [facility] CPT-15570 Level 2 Est. Patient 09:36:42 CONTOUR SANDER Abdirahman Rios MD [facility] CPT-32479 Level 3 Est. Patient 10:56:43 CDT Abdirahman Rios MD [facility] CPT-26331 Level 3 Est. Patient 18:24:52 CDT Abdirahman Rios MD [facility] CPT-00079 Level 3 Est. Patient 13:27:22 CDT Abdirahman Rios MD [facility] Procedures Code Procedure Name Date Entry Date Standard Desc ription CPT-68016 Postop F/U Visit 08:19:08 CONTOUR SANDER CPT-61936 Immunization Single Admin 16:41:53 CDT 2013 CPT-76182 Fluzone Quadrivalent Intramuscular Suspe nsion 0.5 ML 16:41:53 CDT CPT-OV Office Visit 16:39:18 CDT CPT-OV Office Visit 16:16:36 CDT CPT-OV Office Visit 15:34:48 CDT CPT-14268 Postop F/U Visit 14:50:12 CDT CPT-69186 Postop F/U Visit 14:41:10 CDT CPT-80578 Venipuncture Draw Fee 11:38:04 CONTOUR SANDER CPT-61943 Postop F/U Visit 19:02:59 CONTOUR SANDER CPT-89096 Postop F/U Visit 12:04:54 CONTOUR SANDER CPT-88523 Administration single or combination vac cine inc oral 15:56:43 CDT CPT-33003 Influenza split virus > age 3 15:56:43 CDT CPT-73755 Hand comp min 3V 14:25:19 CDT CPT-40846 Postop F/U Visit 21:40:51 CDT CPT-09626 Postop F/U Visit 10:58:43 CDT CPT-42525 Administration single or combination vac cine inc oral 12:33:54 CONTOUR SANDER CPT-66275 Influenza Preservative Free split virus >age 3 12:33:54 CONTOUR SANDER CPT-92299 Administration single or combination vac cine inc oral 09:30:51 CDT CPT-17279 Influenza split virus > age 3 09:30:51 CDT CPT-00715 Postop F/U Visit 15:14:53 CDT CPT-22406 Postop F/U Visit 13:50:14 CDT CPT-54957 Postop F/U Visit 13:34:52 CDT CPT-OV Office Visit 16:55:03 CDT CPT-05187 [place] of cervix w bx ECC 13:32:50 CDT 10/19 CPT-J1885 Toradol 60 mg (Ketorolac) 15:31:59 CDT 2011 CPT-J1885 Toradol 60 mg (Ketorolac) 15:23:54 CDT 2011 CPT-17096 Visit 11:34:37 CONTOUR SANDER CPT-02330 Visit 10:52:39 CONTOUR SANDER CPT-77780 Visit 10:12:02 CONTOUR SANDER CPT-02105 Visit 11:22:43 CONTOUR SANDER CPT-49274 Visit 11:24:12 CONTOUR SANDER CPT-61489 Visit 10:47:05 CONTOUR SANDER CPT-OV Office Visit 10:26:16 CONTOUR SANDER CPT-OV Office Visit 15:34:31 CONTOUR SANDER CPT-67547 Visit 10:42:08 CONTOUR SANDER CPT-53488 Visit 10:52:45 CONTOUR SANDER CPT-000 Give Appropriate Flu Vaccine 16:56:41 CDT 2 CPT-87344 Administration single or combination vac cine inc oral 10:33:21 CDT CPT-09203 Influenza split virus > age 3 10:33:21 CDT CPT-20807 Visit 13:23:09 CDT CPT-95105 Visit 18:24:52 CDT CPT-42704 Sono OB comp > 14 weeks 12:07:49 CDT 04/07
--- OUTSIDE RECORDS SUMMARY | 2020-01-18 16:52 | XMS REPORT | Clinical Summary ---
Author Author Admin, Jeri Rashid Organization [facility] Address Unknown Phone Unavailable Allergies, Adverse [...] 1 every 6 hours as needed OXYCODONE-ACETAMINOPHEN [id number] No Longer Active Shola MCGILL Active LC-5 LIDOCAINE 5 % CREA apply 1 time daily to affected area 2013 LIDOCAINE (ANORECTAL) [id number] No Longer Active Hira muniz BAND MANAGER Active HYDROCODONE-ACETAMINOPHEN 5-325 MG TABS 2 tablets by m outh every 8 hours as needed for pain HYDROCODONE-ACETAMINOPHEN [id number] Acti ve Shola MCGILL Active HYDROCODONE-ACETAMINOPHEN 10-325 MG TABS 1 by mouth ev chaka 8 hours as needed for pain HYDROCODONE-ACETAMINOPHEN 32213181031 No Longer Active Jillina Frazell BAND MANAGER Active LORATADINE 10 MG TABS 1 tablet by mouth daily L ORATADINE 57258151547 No Longer Active Jillina Frazell BAND MANAGER Active DIFLUCAN 150 MG TAB 1 qODay x 2 doses FLUCONAZO LE [id number] No Longer Active Jillina Frazell BAND MANAGER Active CYCLOBENZAPRINE HCL 10 MG TABS 1/2 - 1 tab PO tid PRN back p ain, muscle spasm CYCLOBENZAPRINE HCL 25912565276 No Longer Active Karen herson Frazell BAND MANAGER Active AUGMENTIN 875-125 MG TAB 1 tab by mouth twice daily with food 20 22/05/07 AMOXICILLIN-POT CLAVULANATE 14172729043 No Longer Active Loida Rios MD Active MOBIC 15 MG TABS 1 tab daily MELOXICAM 152808175 14 No Longer Active Abdirahman Rios MD Active PERCOCET 7.5-325 MG TABS 1 PO tid PRN pain OXYCODONE-ACETAMINOPHEN 38744522810 No Longer Active Abdirahman Rios MD Active LIDODERM 5 % PTCH One patch to painful area [place]. On for 12 hrs, off for 12 hrs. LIDOCAINE 90906817447 No Longer Active Abdirahman Rios MD Active PERCOCET 7.5-325 MG TABS 1 PO q 8 hrs PRN pain OXYCODONE-ACETAMINOPHEN 59198133767 No Longer Active Shola MCGILL Active HYDROCODONE-ACETAMINOPHEN 7.5-325 MG TABS 1 by mouth e very 6 hours as needed for pain HYDROCODONE-ACETAMINOPHEN 60027954960 No Longer Active Good Julian MD Active CLINDAMYCIN HCL 300 MG CAPS 1 po QID x 7 days CLINDAMYCIN HCL 12717252835 No Longer Active Abdirahman Rios MD Activ e BACTRIM DS 800-160 MG TABS 1 po BID x 7 days 5 SULFAMETHOXAZOLE-TRIMETHOPRIM 52250073319 No Longer Active Abdirahman Rios MD Active ENDOCET 10-325 MG TABS 1 q 6 hr prn OXYCODONE-ACETAMINOPHEN 34257068201 No Longer Active Abdirahman Rios MD Active IBUPROFEN 800 MG TABS 1 tid prn IBUPROFEN 365769 62908 No Longer Active Abdirahman Rios MD Active BACTRIM DS 800-160 MG TABS by mouth twice a day 11/05 SULFAMETHOXAZOLE-TRIMETHOPRIM 31203084829 No Longer Active Good Julian MD Active HYDROCODONE-ACETAMINOPHEN 7.5-325 MG TABS 1 four times a day as needed for pain HYDROCODONE-ACETAMINOPHEN 47067210955 No Longer Activ e Good Juilan MD Active KEFLEX 500 MG CAP 1 tab po tid CEPHALEXIN 349225 17262 No Longer Active Hira Moser APRN Active IBUPROFEN 800 MG TAB 1 pill three times daily as needed for pain IBUPROFEN 88478963577 No Longer Active Kalpesh Dong MD Active PROMETHAZINE-CODEINE 6.25-10 MG/5ML SYRP 1 tsp every 6 hrs prn c ou PROMETHAZINE-CODEINE 71503688045 No Longer Active Kalpesh Carr Active ALPRAZOLAM 0.5 MG TABS 1 PO bid PRN ALPRAZOLAM 486354 31928 Active Hira Moser APRN Active HYDROCODONE-ACETAMINOPHEN 5-325 MG TABS 1 tab by mouth every 6 hours as needed HYDROCODONE-ACETAMINOPHEN 12609163205 No Longer Activ e Shola MCGILL Active CEPHALEXIN 500 MG CAPS 1 PO bid x 7 days CEPHAL EXIN 52137253359 No Longer Active Shola MCGILL Active BACTRIM DS 800-160 MG TAB 1 tab by mouth twice daily 2 TRIMETHOPRIM-SULFAMETHOXAZOLE 33882278763 No Longer Active Kalpesh Dong MD Active HYDROCODONE-ACETAMINOPHEN 5-325 MG TABS 1 PO tid PRN pain 5 HYDROCODONE-ACETAMINOPHEN 29540115987 No Longer Active Abhinav Galvan MD Active IMPLANON 68 MG IMPL IMPLANTED IN LEFT ARM ETONO GESTREL 76592293774 No Longer Active 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 BAND MANAGER Active AMOXICILLIN 500 MG TABS 2 tabs PO bid x 10 d AM OXICILLIN 74206170283 No Longer Active Kalpesh Dong MD Active LEVAQUIN 500 MG TABS 1 PO q day x 7 days LEVOFL OXACIN 44940737514 No Longer Active Shola MCGILL Active PROAIR HFA 108 (90 BASE) MCG/ACT AERS 2 puff q 4-6 hrs PRN ALBUTEROL SULFATE 30550400718 Active Edilberto Marino DO Active FIORICET 50-325-40 MG TABS 2 PO q 8 hrs PRN FOSTER [id number] Active Shola MCGILL Active AMITRIPTYLINE HCL 25 MG TAB 1 tab by mouth daily 60 minutes before bedtime AMITRIPTYLINE HCL 80769984734 No Longer Active Shola MCGILL Active LORTAB 5 5-500 MG TABS 1/2 to 1 tablet by mouth go ry 6 hours as needed for pain HYDROCODONE-ACETAMINOPHEN 14236024137 No Longer Active Shola MCGILL Active CEPHALEXIN 500 MG TABS Take one by mouth four times daily, morning, noon, early evening and bedtime. CEPHALEXIN 41346027517 No Long er Active Hira Joyjanee ANDRADEN Active TYLENOL/CODEINE #3 300-30 MG TAB 1-2 po q6hr PRN Pain ACETAMINOPHEN-CODEINE 57651959227 No Longer Active Edilberto Marino DO Active PRISTIQ 50 MG [id number] 1 po qd DESVENLAFAXI NE SUCCINATE 47531436929 No Longer Active Edilberto Marino DO Active PENICILLIN V POTASSIUM 500 MG TAB 1 four times a day 2 PENICILLIN V POTASSIUM 91062782900 No Longer Active Edilberto Marino DO Active DOXYCYCLINE HYCLATE 100 MG CAPS Take one (1) tablet by mouth twice a day DOXYCYCLINE HYCLATE 35365914992 No Longer Active Ronnie Galvan MD Active HYDROCODONE-ACETAMINOPHEN 5-325 MG TABS 1 po q 6hr PRN Pain 2011 HYDROCODONE-ACETAMINOPHEN 55732474419 No Longer Active Patri joan Perez RN Active BACTRIM DS 800-160 MG TAB 1 tab by mouth twice daily 2 TRIMETHOPRIM-SULFAMETHOXAZOLE 84208341914 No Longer Active Kalpesh Dong MD Active LORTAB 5 5-500 MG TABS 1/2 to 1 tablet by mouth go ry 4 hours as needed for pain HYDROCODONE-ACETAMINOPHEN 75812280352 No Longer Active Kalpesh Dong MD Active GENERESS FE 0.8-25 MG-MCG CHEW Take one by mouth daily NORETHIN-ETH ESTRADIOL-FE 74138013860 No Longer Active Kalpesh Dong MD Active HYDROCODONE-ACETAMINOPHEN 7.5-500 MG TABS 1-2 every 4 hours as needed HYDROCODONE-ACETAMINOPHEN 17239903758 No Longer Activ e Kalpesh Dong MD Active FERROUS SULFATE 325 (65 FE) MG TABS 1 tablet by mouth twice yung y FERROUS SULFATE 95257361565 No Longer Active Kalpesh Dong MD Active IBUPROFEN 600 MG TAB 1 po q6-8hr PRN IBUPROFEN 77352033733 No Longer Active Kalpesh Dong MD Active SPIRONOLACTONE 25 MG TAB 1 tablet by mouth daily 01/22 SPIRONOLACTONE 98585514812 No Longer Active Kalpesh Dong MD Acti ve HYDROCODONE-ACETAMINOPHEN 7.5-325 MG TABS 1 po QID PRN Pain 2011 HYDROCODONE-ACETAMINOPHEN 58426286390 No Longer Active Kalpesh Dong MD Active CLINDAMYCIN HCL 300 MG CAPS 1 po q6hr x 7 days CLINDAMYCIN HCL 49315877005 No Longer Active Edilberto Marino DO Active PREDNISONE 20 MG TAB 2 tabs daily for 4 days, 1 t ab daily for 4 days, 1/2 tab daily for 4 days PREDNISONE 11411117760 No Longer Active Edilberto Marino DO Active PERCOCET 5-325 MG TABS 1 tablet by mouth every 6 hours as ne eded for pain OXYCODONE-ACETAMINOPHEN 57393724845 No Longer Active Abdirahman Rios MD Active VITAMINS TABS Take one by mouth daily MV & MIN W/FE-FA TABS 55142846170 No Longer Active Abdirahman Rios MD Active LUIS 3-0.02 MG TABS 1 tablet by mouth daily as directed DROSPIRENONE-ETHINYL ESTRADIOL 27340210291 No Longer Active Abdirahman Rios MD Active LORATADINE 10 MG TABS 1 tablet by mouth daily L ORATADINE 56146231590 No Longer Active Kalpesh Dong MD Active HYDROCODONE-ACETAMINOPHEN 5-325 MG TABS 1 po q 6hr PRN Pain 2010 HYDROCODONE-ACETAMINOPHEN 00698237735 No Longer Active Edilberto Marino DO Active BACTRIM DS 800-160 MG TAB 1 tab by mouth twice daily 2 TRIMETHOPRIM-SULFAMETHOXAZOLE 53229748790 No Longer Active Abdirahman Rios MD Active 28-0.8 MG TABS Take one by mouth daily 09/20 VIT-FE FUMARATE-FA 49655083892 No Longer Active Abdirahman Rios MD Active CIPRO 500 MG TAB 1 tablet by mouth twice daily CIPROFLOXACIN HCL 50743726147 No Longer Active Abdirahman Rios MD Active BENADRYL 25 MG CAP 1 po q8hr PRN Congestion DIPHENHYDRAMINE HCL 38531685283 No Longer Active Abdirahman Rios MD Active ZOLOFT 50 MG TAB 1 po qd SERTRALINE HCL 503073 14065 No Longer Active Abdirahman Rios MD Active AMOXICILLIN 875 MG TABS 1 tab by mouth twice daily 201 08/09/13 AMOXICILLIN 40220741164 No Longer Active Abdirahman Rios MD Activ e AMOXICILLIN 875 MG TABS 1 tab by mouth twice daily 201 07/19/27 AMOXICILLIN 97136096274 No Longer Active Abdirahman Rios MD Activ e BACTRIM DS 800-160 MG TAB 2 tab by mouth twice daily 2 TRIMETHOPRIM-SULFAMETHOXAZOLE 73719534324 No Longer Active Abdirahman Rios MD Active KEFLEX 500 MG CAP 1 po tid x 10 days CEPHALEXIN 61590988627 No Longer Active Abdirahman Rios MD Active AMOXICILLIN 875 MG TABS 1 tab by mouth twice daily 201 07/18/07 AMOXICILLIN 45338511137 No Longer Active Abdirahman Rios MD Activ e BACTRIM DS 800-160 MG TAB 2 tab by mouth twice daily 2 BACTRIM DS 800-160 MG TAB TRIMETHOPRIM-SULFAMETHOXAZOLE Inactive ZOLOFT 50 MG TAB 1 po qd ZOLOFT 50 MG TAB 3129 41 SERTRALINE HCL Inactive BENADRYL 25 MG CAP 1 po q8hr PRN Congestion BENADRYL 25 MG CAP 5093201 DIPHENHYDRAMINE HCL Inactive 28-0.8 MG TABS Take one by mouth daily 09/20 28-0.8 MG TABS VIT-FE FUMARATE-FA Inactive HYDROCODONE-ACETAMINOPHEN 5-325 MG TABS 1 po q 6hr PRN Pain 2010 HYDROCODONE-ACETAMINOPHEN 5-325 MG TABS 455829 HYDROCODONE-ACETAMINOPHEN Inactive LORATADINE 10 MG TABS 1 tablet by mouth daily LORATADINE 10 MG TABS 603031 LORATADINE Inactive LUIS 3-0.02 MG TABS 1 tablet by mouth daily as directed LUIS 3-0.02 MG TABS DROSPIRENONE-ETHINYL ESTRADIOL Inactive VITAMINS TABS Take one by mouth daily VITAMINS TABS MV & MIN W/FE-FA TABS Inactive PERCOCET 5-325 MG TABS 1 tablet by mouth every 6 hours as ne eded for pain PERCOCET 5-325 MG TABS 5657488 OXYCODONE-ACETAMIN OPHEN Inactive PREDNISONE 20 MG TAB 2 tabs daily for 4 days, 1 t ab daily for 4 days, 1/2 tab daily for 4 days PREDNISONE 20 MG TAB 374403 PREDNISON E Inactive CLINDAMYCIN HCL 300 MG CAPS 1 po q6hr x 7 days CLINDAMYCIN HCL 300 MG CAPS 777479 CLINDAMYCIN HCL Inactive HYDROCODONE-ACETAMINOPHEN 7.5-325 MG TABS 1 po QID PRN Pain 2011 HYDROCODONE-ACETAMINOPHEN 7.5-325 MG TABS 532331 HYDROCODONE-ACETAMINOPHEN Inactive SPIRONOLACTONE 25 MG TAB 1 tablet by mouth daily 01/22 SPIRONOLACTONE 25 MG TAB 085024 SPIRONOLACTONE Inactive IBUPROFEN 600 MG TAB 1 po q6-8hr PRN IBUPROFEN 600 MG TAB 189453 IBUPROFEN Inactive FERROUS SULFATE 325 (65 FE) MG TABS 1 tablet by mouth twice yugn y FERROUS SULFATE 325 (65 FE) MG TABS 442935 FERROUS SULF ATE Inactive HYDROCODONE-ACETAMINOPHEN 7.5-500 MG [...] PRN Pain 2011 HYDROCODONE-ACETAMINOPHEN 5-325 MG TABS 680834 HYDROCODONE-ACETAMINOPHEN Inactive DOXYCYCLINE HYCLATE 100 MG CAPS Take one (1) tablet by mouth twice a day DOXYCYCLINE HYCLATE 100 MG CAPS 883410 DOXYCYCLINE HYCLATE Inactive PENICILLIN V POTASSIUM 500 MG TAB 1 four times a day 2 PENICILLIN V POTASSIUM 500 MG TAB 113016 PENICILLIN V POTASSIUM [place] ctive PRISTIQ 50 MG [id number] 1 po qd PRISTIQ 50 MG [id number] DESVENLAFAXINE SUCCINATE Inactive TYLENOL/CODEINE #3 300-30 MG TAB 1-2 po q6hr PRN Pain TYLENOL/CODEINE #3 300-30 MG TAB 494140 ACETAMINOPHEN-CODEINE Inact krishna CEPHALEXIN 500 MG TABS Take one by mouth four times daily, morning, noon, early evening and bedtime. CEPHALEXIN 500 MG TABS 280277 CEPHALEXIN Inactive LORTAB 5 5-500 MG TABS 1/2 to 1 tablet by mouth go ry 6 hours as needed for pain LORTAB 5 5-500 MG TABS HYDROCODONE-A CETAMINOPHEN Inactive AMITRIPTYLINE HCL 25 MG TAB 1 tab by mouth daily 60 minutes before bedtime AMITRIPTYLINE HCL 25 MG TAB 746689 AMITRIPTYLINE HCL Inactive AMOXICILLIN 500 MG TABS 2 tabs PO bid x 10 d 7 AMOXICILLIN 500 MG TABS 062109 AMOXICILLIN Inactive IMPLANON 68 MG IMPL IMPLANTED IN LEFT ARM IMPLANON 68 MG IMPL ETONOGESTREL Inactive HYDROCODONE-ACETAMINOPHEN 5-325 MG TABS 1 PO tid PRN pain 5 HYDROCODONE-ACETAMINOPHEN 5-325 MG TABS 966063 HYDROCODONE-ACETAMIN OPHEN Inactive BACTRIM DS 800-160 MG TAB 1 tab by mouth twice daily 2 BACTRIM DS 800-160 MG TAB TRIMETHOPRIM-SULFAMETHOXAZOLE Inac tive CEPHALEXIN 500 MG CAPS 1 PO bid x 7 days CEPHALEXIN 500 MG CAPS 437504 CEPHALEXIN Inactive HYDROCODONE-ACETAMINOPHEN 5-325 MG TABS 1 tab by mouth every 6 hours as needed HYDROCODONE-ACETAMINOPHEN 5-325 MG TABS 820168 HYDROCODONE-ACETAMINOPHEN Inactive PROMETHAZINE-CODEINE 6.25-10 MG/5ML SYRP 1 tsp every 6 hrs prn c ough PROMETHAZINE-CODEINE 6.25-10 MG/5ML SYRP 028944 PROMETH AZINE-CODEINE Inactive IBUPROFEN 800 MG TAB 1 pill three times daily as needed for pain IBUPROFEN 800 MG TAB 451642 IBUPROFEN Inactive KEFLEX 500 MG CAP 1 tab po tid KEFLEX 500 MG CAP 311146 CEPHALEXIN Inactive HYDROCODONE-ACETAMINOPHEN 7.5-325 MG TABS 1 four times a day as needed for pain HYDROCODONE-ACETAMINOPHEN 7.5-325 MG TABS 511284 HYDROCODONE-ACETAMINOPHEN Inactive BACTRIM DS 800-160 MG TABS by mouth twice a day 11/05 BACTRIM DS 800-160 MG TABS SULFAMETHOXAZOLE-TRIMETHOPRIM Inactive IBUPROFEN 800 MG TABS 1 tid prn IBUPROFEN 800 MG TABS 282444 IBUPROFEN Inactive ENDOCET 10-325 MG TABS 1 q 6 hr prn ENDOC ET 10-325 MG TABS 0106538 OXYCODONE-ACETAMINOPHEN Inactive HYDROCODONE-ACETAMINOPHEN 7.5-325 MG TABS 1 by mouth e very 6 hours as needed for pain HYDROCODONE-ACETAMINOPHEN 7.5-325 MG TABS 161312 HYDROCODONE-ACETAMINOPHEN Inactive PERCOCET 7.5-325 MG TABS 1 PO q 8 hrs PRN pain PERCOCET 7.5-325 MG TABS 1826348 OXYCODONE-ACETAMINOPHEN Inactive LIDODERM 5 % PTCH One patch to painful area [place]. On for 12 hrs, off for 12 hrs. LIDODERM 5 % PTCH 1053313 LIDOCAINE Inactiv e PERCOCET 7.5-325 MG TABS 1 PO tid PRN pain PERCOCET 7.5- 325 MG TABS 1889224 OXYCODONE-ACETAMINOPHEN Inactive MOBIC 15 MG TABS 1 tab daily MOBIC 15 MG TABS 15 2695 MELOXICAM Inactive CYCLOBENZAPRINE HCL 10 MG TABS 1/2 - 1 tab PO tid PRN back p ain, muscle spasm CYCLOBENZAPRINE HCL 10 MG TABS 917804 CYCLOBENZA JOSEPH HCL Inactive LORATADINE 10 MG TABS 1 tablet by mouth daily LORATADINE 10 MG TABS 911346 LORATADINE Inactive HYDROCODONE-ACETAMINOPHEN 10-325 MG TABS 1 by mouth ev chaka 8 hours as needed for pain HYDROCODONE-ACETAMINOPHEN 10-325 MG TABS 462848 HYDROCODONE-ACETAMINOPHEN Inactive LC-5 LIDOCAINE 5 % CREA apply 1 time daily to affected area 2013 LC-5 LIDOCAINE 5 % CREA LIDOCAINE (ANORECTAL) In active PERCOCET 5-325 MG TAB 1 every 6 hours as needed 2014/1 2/29 PERCOCET 5-325 MG TAB 4786316 OXYCODONE-ACETAMINOPHEN Inactive AMOXICILLIN 875 MG TABS 1 tab by mouth twice daily 201 07/18/07 AMOXICILLIN 875 MG TABS 617111 AMOXICILLIN Inactive KEFLEX 500 MG CAP 1 po tid x 10 days KEFLEX 500 MG CAP 322965 CEPHALEXIN Inactive AMOXICILLIN 875 MG TABS 1 tab by mouth twice daily 201 07/19/27 AMOXICILLIN 875 MG TABS 563147 AMOXICILLIN Inactive AMOXICILLIN 875 MG TABS 1 tab by mouth twice daily 201 08/09/13 AMOXICILLIN 875 MG TABS 185845 AMOXICILLIN Inactive CIPRO 500 MG TAB 1 tablet by mouth twice daily CIPRO 500 MG TAB 949937 CIPROFLOXACIN HCL Inactive BACTRIM DS 800-160 MG TAB 1 tab by mouth twice daily 2 BACTRIM DS 800-160 MG TAB TRIMETHOPRIM-SULFAMETHOXAZOLE Inac tive LEVAQUIN 500 MG TABS 1 PO q day x 7 days LEVAQUIN 500 MG TABS 844929 LEVOFLOXACIN Inactive CLINDAMYCIN HCL 300 MG CAPS 1 po QID x 7 days CLINDAMYCIN HCL 300 MG CAPS 181475 CLINDAMYCIN HCL Inactive AUGMENTIN 875-125 MG TAB 1 tab by mouth twice daily with food 20 22/05/07 AUGMENTIN 875-125 MG TAB 029318 AMOXICILLIN-POT CLAVULA [place] Inactive DIFLUCAN 150 MG TAB 1 qODay x 2 doses DIFLUCAN 150 MG TAB 654652 FLUCONAZOLE Inactive Advance Directives Directive Description Start Date PERMISSION TO SHARE Immunizations Vaccine Administration Date Value Standard Alf cription Seasonal influenza vaccine, injectable, containing preservative, for > 3 years old (Afluria, FluLaval, Fluzone, Fluvirin, Fluarix, Agriflu(>= 18 yo)) Fluzone (>3 yrs.) [[id number]] Influenza, seasonal, inject able Seasonal influenza vaccine, injectable, preservative free, for > 3 years old (Afluria, FluLaval, Fluzone, Fluvirin, Fluarix, Agriflu(>= 18 yo)) Fluzone preservative free (>3 yrs.) [[id number]] Influenza, seasonal, injectable, preservative free Seasonal influenza vaccine, injectable, containing preservative, for > 3 years old (Afluria, FluLaval, Fluzone, Fluvirin, Fluarix, Agriflu(>= 18 yo)) Fluzone (>3 yrs.) [[id number]] Influenza, seasonal, inject able Seasonal influenza vaccine, injectable, containing preservative, for > 3 years old (Afluria, FluLaval, Fluzone, Fluvirin, Fluarix, Agriflu(>= 18 yo)) Fluzone (>3 yrs.) [[id number]] Influenza, seasonal, inject able dT (Diphtheria and [...] ... - Chemistry sodium, serum 140 mmol/L 480-562 6060/02/24 potassium, serum 4.3 mmol/L 3.5-5.2 chloride, serum [...] 4.3-6.0 Lab Report: T3, TOTAL, INSULIN - [employer] ry triiodothyronine (T3), serum 78 ng/dL 76-181 Office Visit: low blood sugars - Chemis try cholesterol, target level 200 mg/dL triglyceride, target level 200 mg/dL HDL cholesterol, serum, target level 35 mg/dL LDL target level 100 mg/dL Encounters Code Encounter Date Provider Facility CPT-27281 Level 2 Est. Patient 16:57:09 BUSINESS SERVICES TECH Kalpesh goins MD [facility] CPT-07827 Level 3 Est. Patient 14:03:08 BUSINESS SERVICES TECH Abdirahman Rios MD [facility] CPT-18213 Level 3 Est. Patient 18:12:34 CDT Shola Wright [facility] CPT-42515 Level 3 Est. Patient 19:34:46 CDT Shola Wright [facility] CPT-45257 Level 3 Est. Patient 14:19:37 CDT Abdirahman Rios MD [facility] CPT-25990 Level 3 Est. Patient 14:11:58 CDT Kalpesh goins MD [facility] CPT-34964 Level 3 Est. Patient 16:50:00 CDT Michelle MERCADO [facility] CPT-46667 Level 3 Est. Patient 17:11:32 BUSINESS SERVICES TECH Brandie bates MD PhD [facility] CPT-67435 Level 3 Est. Patient 16:31:47 BUSINESS SERVICES TECH Shola Wright [facility] CPT-37431 Level 3 Est. Patient 17:51:10 BUSINESS SERVICES TECH Abhinav Galvan MD [facility] CPT-16701 Level 4 Est. Patient 12:54:56 BUSINESS SERVICES TECH Kalpesh goins MD [facility]-03473 Level 4 Est. Patient 12:53:56 BUSINESS SERVICES TECH Kalpesh goins MD [facility] CPT-03356 Level 3 Est. Patient 17:56:58 CDT Shola Keesha Francesabi [facility] CPT-46253 Level 3 Est. Patient 14:26:20 CDT Janak Dominguez [facility][note 3] CPT-05377 Level 3 Est. Patient 09:38:41 CDT Shola Wright [facility] CPT-66192 Level 3 Est. Patient 14:45:26 CDT Edilberto tiwari [facility] CPT-53791 Level 3 Est. Patient 10:51:33 CDT Hira muniz [facility] CPT-13610 Level 3 Est. Patient 11:57:55 BUSINESS SERVICES TECH Shola Wright [facility] CPT-52164 Level 3 Est. Patient 09:53:33 BUSINESS SERVICES TECH Edilberto tiwari [facility] CPT-59422 Level 3 Est. Patient 14:42:54 BUSINESS SERVICES TECH Abhinav Galvan MD [facility]-76764 Level 3 Est. Patient 15:10:02 CDT Janak butcher [facility] CPT-49487 Level 3 Est. Patient 15:20:20 CDT Theo dennis MD [facility] CPT-64819 Level 2 Est. Patient 14:08:57 CDT Kalpesh goins MD [facility] CPT-72266 Level 3 Est. Patient 13:56:19 CDT Abdirahman Rios MD [facility] CPT-42036 Level 3 Est. Patient 13:59:37 CDT Abdirahman Rios MD [facility] CPT-40759 Level 2 Est. Patient 14:44:59 CDT Kalpesh goins MD [facility] CPT-87213 Level 3 Est. Patient 06:06:23 CDT Edilberto tiwari DO [facility] CPT-14939 Level 3 Est. Patient 15:23:54 CDT Abdirahman Rios MD [facility] CPT-73198 Level 3 Est. Patient 15:43:49 CDT Abdirahman Rios MD [facility] CPT-94898 Level 3 Est. Patient 12:46:47 BUSINESS SERVICES TECH Abdirahman Rios MD [facility] CPT-71511 Level 3 Est. Patient 08:13:35 BUSINESS SERVICES TECH Abdirahman Rios MD [facility] CPT-80503 Level 2 Est. Patient 09:36:42 BUSINESS SERVICES TECH Abdirahman Rios MD [facility] CPT-82229 Level 3 Est. Patient 10:56:43 CDT Abdirahman Rios MD [facility] CPT-99624 Level 3 Est. Patient 18:24:52 CDT Abdirahman Rios MD [facility] CPT-36466 Level 3 Est. Patient 13:27:22 CDT Abdirahman Rios MD [facility] Procedures Code Procedure Name Date Entry Date Standard Desc ription CPT-04874 Postop F/U Visit 08:19:08 BUSINESS SERVICES TECH CPT-58378 Immunization Single Admin 16:41:53 CDT 2013 CPT-82317 Fluzone Quadrivalent Intramuscular Suspe nsion 0.5 ML 16:41:53 CDT CPT-OV Office Visit 16:39:18 CDT CPT-OV Office Visit 16:16:36 CDT CPT-OV Office Visit 15:34:48 CDT CPT-13935 Postop F/U Visit 14:50:12 CDT CPT-01789 Postop F/U Visit 14:41:10 CDT CPT-49632 Venipuncture Draw Fee 11:38:04 BUSINESS SERVICES TECH CPT-56865 Postop F/U Visit 19:02:59 BUSINESS SERVICES TECH CPT-49501 Postop F/U Visit 12:04:54 BUSINESS SERVICES TECH CPT-69440 Administration single or combination vac cine inc oral 15:56:43 CDT CPT-24785 Influenza split virus > age 3 15:56:43 CDT CPT-96681 Hand comp min 3V 14:25:19 CDT CPT-44467 Postop F/U Visit 21:40:51 CDT CPT-68355 Postop F/U Visit 10:58:43 CDT CPT-98055 Administration single or combination vac cine inc oral 12:33:54 BUSINESS SERVICES TECH CPT-36303 Influenza Preservative Free split virus >age 3 12:33:54 BUSINESS SERVICES TECH CPT-64909 Administration single or combination vac cine inc oral 09:30:51 CDT CPT-31924 Influenza split virus > age 3 09:30:51 CDT CPT-99219 Postop F/U Visit 15:14:53 CDT CPT-05627 Postop F/U Visit 13:50:14 CDT CPT-59644 Postop F/U Visit 13:34:52 CDT CPT-OV Office Visit 16:55:03 CDT CPT-04771 Prole of cervix w bx ECC 13:32:50 CDT 10/19 CPT-J1885 Toradol 60 mg (Ketorolac) 15:31:59 CDT 2011 CPT-J1885 Toradol 60 mg (Ketorolac) 15:23:54 CDT 2011 CPT-38943 Visit 11:34:37 BUSINESS SERVICES TECH CPT-26684 Visit 10:52:39 BUSINESS SERVICES TECH CPT-60949 Visit 10:12:02 BUSINESS SERVICES TECH CPT-44872 Visit 11:22:43 BUSINESS SERVICES TECH CPT-92480 Visit 11:24:12 BUSINESS SERVICES TECH CPT-05562 Visit 10:47:05 BUSINESS SERVICES TECH CPT-OV Office Visit 10:26:16 BUSINESS SERVICES TECH CPT-OV Office Visit 15:34:31 BUSINESS SERVICES TECH CPT-35586 Visit 10:42:08 BUSINESS SERVICES TECH CPT-97645 Visit 10:52:45 BUSINESS SERVICES TECH CPT-000 Give Appropriate Flu Vaccine 16:56:41 CDT 2 CPT-01986 Administration single or combination vac cine inc oral 10:33:21 CDT CPT-38000 Influenza split virus > age 3 10:33:21 CDT CPT-11009 Visit 13:23:09 CDT CPT-65438 Visit 18:24:52 CDT CPT-19759 Sono OB comp > 14 weeks 12:07:49 CDT 04/07
--- OUTSIDE RECORDS SUMMARY | 2020-01-18 16:52 | XMS REPORT ---
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 Name Role Phone CHRISTOPHER YORK, CAROLEE PP [phone] Summary purpose TRANSITION OF CARE AUTO GENERATION Chief Complaint and Reason for Visit Admit Diagnosis 1 DISEASES OF LIPS Problem list No authorized problems tracked for [...] and/or laboratory data RESULTS Therapeutic Drug Monitoring 60-55-611889:40:00 Result Normal Range Units Vancomycin Trough L 4.9 10-22 ug /ml 83-09-526536:56:00 Result Normal Range Units Vancomycin Trough L 4.5 10-22 ug /ml Chemistry 68-63-083296:56:00 Result Normal Range Units BUN L 6 7-18 mg/dl Creatinine 0.67 0.6-1.0 mg/dl Estimated GFR 109 >= 60 mL/min /1.7 History of procedures Procedure Code Code Type Description Date Performed Performing Physician 17302 CPT-4 THER/PROPH/DIAG IV INF, INIT 08-06-2014 CAROLEE WHITE 83666 CPT-4 THER/PROPH/DIAG IV INF ADDON 08-06-2014 CAROLEE WHITE J7040 CPT-4 NORMAL SALINE SOLUTION INFUS 08-06-2014 CAROLEE DILLOW J7050 CPT-4 NORMAL SALINE SOLUTION INFUS 08-07-2014 CAROLEE DILLOW J3370 CPT-4 VANCOMYCIN HCL INJECTION 08-07-2014 Dorie VELAIN DILLOW J7040 CPT-4 NORMAL SALINE SOLUTION INFUS 08-07-2014 CAROLEE DILLOW J3370 CPT-4 VANCOMYCIN HCL INJECTION 08-07-2014 Dorie VELAIN DILLOW J7040 CPT-4 NORMAL SALINE SOLUTION INFUS 08-07-2014 CAROLEE DILLOW J3370 CPT-4 VANCOMYCIN HCL INJECTION 08-07-2014 Dorie VELAIN DILLOW J2550 CPT-4 PROMETHAZIEN 25MG/ML 08-07-2014 STAN N DILLOW 04993 CPT-4 ASSAY OF VANCOMYCIN 08-07-2014 CAROLEE DILLOW 26369 CPT-4 ASSAY OF UREA NITROGEN 08-07-2014 LORNA WHITE 07087 CPT-4 ASSAY OF CREATININE 08-07-2014 CAROLEE DILLOW 66990 CPT-4 ASSAY OF VANCOMYCIN 08-08-2014 CAROLEE DILLOW J2550 CPT-4 PROMETHAZIEN 25MG/ML 08-07-2014 STAN Whittington DILLOW J7040 CPT-4 NORMAL SALINE SOLUTION INFUS 08-08-2014 CAROLEE DILLOW J3370 CPT-4 VANCOMYCIN HCL INJECTION 08-08-2014 Dorie VELAIN DILLOW J2550 CPT-4 PROMETHAZIEN 25MG/ML 08-08-2014 STAN N DILLOW J2550 CPT-4 PROMETHAZIEN 25MG/ML 08-08-2014 STAN N DILLOW 42970 CPT-4 ROUTINE VENIPUNCTURE 08-08-2014 STAN Nelsy DILLOW 92271 CPT-4 ROUTINE VENIPUNCTURE 08-07-2014 STAN N DILLOW 46529 CPT-4 THER/PROPH/DIAG IV INF, INIT 08-07-2014 CAROLEE WHITE 54352 CPT-4 THER/PROPH/DIAG IV INF ADDON 08-07-2014 CAROLEE WHITE 35730 CPT-4 TX/PRO/DX INJ NEW DRUG ADDON 08-07-2014 CAROLEE WHITE 43120 CPT-4 THER/PROPH/DIAG IV INF, INIT 08-08-2014 CAROLEE WHITE 65831 CPT-4 THER/PROPH/DIAG IV INF ADDON 08-08-2014 CAROLEE WHITE 77831 CPT-4 TX/PRO/DX INJ NEW DRUG ADDON 08-08-2014 CAROLEE WHITE 11309 CPT-4 THER/PROPH/DIAG IV INF, INIT 08-08-2014 CAROLEE WHITE 75423 CPT-4 THER/PROPH/DIAG IV INF ADDON 08-08-2014 CAROLEE WHITE 90945 CPT-4 TX/PRO/DX INJ NEW DRUG ADDON 08-08-2014 CAROLEE WHITE 37435 CPT-4 THER/PROPH/DIAG IV INF, INIT 08-08-2014 CAROLEE WHITE 36405 CPT-4 THER/PROPH/DIAG IV INF ADDON 08-08-2014 CAROLEE WHITE Functional status Functional Status Finding Observation Time Hearing Prob Loc none 73-05-348599:30 Vision Problems yes :30 Vision Correct Dev glasses :30 Ambulation Asst Dev none :30 Range of Motion full :30 Muscle Strength RUE 5 ROM full resist :30 Muscle Strength RLE 5 ROM full resist :30 Muscle Strength LUE 5 ROM full resist 66-73-218696:30 Muscle Strength LLE 5 ROM full resist 73-86-352381:30 Transfers independent 19-62-500064:30 Ambulation up ad hernandez :30 Balance steady :30 Nutrition normal :30 Diet regular 93-16-846915:30 Oral Cavity moist and intact :30 Teeth dentures 33-19-161279:30 Dental Hygiene poor :30 Abdomen Appearance obese :30 Abdomen soft :30 Bowel Sounds present :30 NG Tube no :30 Feeding Tube none :30 Ramírez no :30 Cont Bladder Irr no :30 Ostomy no :30 Stool normal :30 Urination normal 33-75-136903:30 Quality sym/unlabored :30 Cough absent :30 Secretions no :30 Breath Sounds RUL clear :30 Breath Sounds RML clear :30 Breath Sounds RLL clear : Breath Sounds SARA clear : Breath Sounds LLL clear : Airway natural : Chest Tube no : Oxygen no 45-06-479867:08 C-PAP no : BI-PAP no : Temp >100.4 no : Temp <96.8 no : Chills with rigors no : HR > 90bpm no : Respirations > 20 no : Systolic <90 no : headache stiff neck no : Rapid Resp no :30 IV Site Location L wrist :40 IV Type peripheral :40 IV Site Information new :40 IV Site Start Attmpt 2 times :40 IV Site Isael 22 :40 IV Site Appearance WNL :40 IV Site Color clear :40 IV Site Patent yes :40 Dressing Changed yes :40 Dressing Type occlusive :40 Nursing Note IV infusion completed withou t difficulty. Site flushed with 10cc NS et wrapped with coban. VS obtained. Pt ambulates off unit to home in good condition. 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 Hospital discharge instructions Valuables no PNE Vac never Flu Vac 04/2014 Tetanus Vac 06/2013
--- OUTSIDE RECORDS SUMMARY | 2020-01-18 16:52 | XMS REPORT ---
Author Author Jeri PRADO [facility] Address [address] [place] [address] Care Team Providers Care Exchange Consultant Name Role Phone CADE PRADO Unavailable PROBLEMS Type Condition ICD9-CM Code RLZ49-RN Code Onset Dates Condition S tatus SNOMED Code Problem Pain at surgical incision R20.8 Acti ve 59251183 Problem Interstitial cystitis N30.10 Active 334073063 Problem Ingrown left big toenail L60.0 Activ e 562002079 Problem Other chronic pain G89.29 Active 8 8281226 Problem Encounter for immunization Z23 Act krishna 373247191 Problem Pilonidal cyst L05.91 Active 08963 008 Problem Ulcer L98.499 Active 911103284 ALLERGIES Substance Reaction Event Type Date Status Tramadol HCl rash Drug Allergy Aug, Active Ketorolac Tromethamine rash Drug Allergy Aug, Activ e Bactrim shortness of breath Drug Allergy Aug, Active Azithromycin shortness of breath Drug Allergy Aug, Active latex rash Non Drug Allergy Aug, Active SOCIAL HISTORY Never Assessed PLAN OF CARE Activity Details Follow Up Sunday at 1pm with orthop edics at [facility] Reason: VITAL SIGNS Height 63 in 2016-08-14 Weight 228.0 lbs 2016-08-14 Temperature 98.4 degrees Fahrenheit 2016-08-14 Heart Rate 86 bpm 2016-08-14 Respiratory Rate 18 2016-08-14 BMI 40.38 kg/m2 2016-08-14 Blood pressure systolic 130 mmHg 2016-08-14 Blood pressure diastolic 86 mmHg 2016-08-14 MEDICATIONS Medication Instructions Dosage Frequency Start Date End Date Duration S tatus Hydrocodone-Acetaminophen 7.5-325 MG Orally every 4 hrs as needed 1 tablet Jul, Active Bactroban 2 % Externally Three times a day 1 application to affecte d area 8h Aug, Aug, 07 days Active Lisinopril 20 MG Orally Once a day 1 tablet 24h Active RESULTS Name Result Date Reference Range Ultrasound : Venous Doppler (DVT EVAL) 6 PROCEDURES No Known procedures IMMUNIZATIONS No Known [...]
--- OUTSIDE RECORDS SUMMARY | 2020-01-18 16:52 | XMS REPORT | Clinical Summary ---
Author Author Admin, Jeri Rashid Organization [facility] Address Unknown Phone Unavailable Allergies, Adverse Reactions, [...] MD Headache HAND PAIN, RIGHT 729.5 Resolved Godo melchor MD Pain in limb BRONCHITIS, ACUTE [...] sinusitis, unspecified Hidradenitis 705.83 Active Hira Moser OUTSIDE SALES ACCOUNT REPRESENTATIVE Hidradenitis AFTERCARE FOLLOW SURGERY SKIN&SUBCUT TISSUE NEC V58.77 07/28 Active Kalpesh Dong MD Aftercare following surgery of the skin and subcutaneous tissue, NEC Impetigo 684 Active Edilberto W Ned DO Im petigo LARGE FOR GESTATIONAL AGE ICD-656.60 Inactive Abdirahman Rios MD , INCIDENTAL PROBLEM ICD-V22.2 Inacti ve Abdirahman Rios MD MASTALGIA ICD-611.71 Inactive Abdirahman Carr BRONCHITIS NOT SPECIFIED ACUTE OR CHRONIC ICD-490 8 Inactive Abdirahman Rios MD ABDOMINAL ABSCESS ICD-682.2 Inactive Abdirahman sanchez MD SINUSITIS, ACUTE ICD-461.9 Inactive Abdriahman Casas MD BACK PAIN ICD-724.5 Inactive Abdirahman [...] Julian MD FAMILY HISTORY OF ASTHMA ICD-V17.5 Jose M Julian MD DEPRESSION ICD-311 Jose M sierra MD AMENORRHEA ICD-626.0 Inactive Good sierra [...] Generic Name NDC Status Provider Patient Instruction KEFLEX 500 MG CAP 1 po qid CEPHALEXIN [id number] Act krishna Edilberto Keesha Ned DO Active PERCOCET 5-325 MG TAB 1 every 6 hours as needed OXYCODONE-ACETAMINOPHEN 35543753330 No Longer Active Shola MCGILL Active LC-5 LIDOCAINE 5 % CREA apply 1 time daily to affected area 2013 LIDOCAINE (ANORECTAL) [id number] No Longer Active Jillina F radhaell OUTSIDE SALES ACCOUNT REPRESENTATIVE Active HYDROCODONE-ACETAMINOPHEN 5-325 MG TABS 2 tablets by m out every 8 hours as needed for pain HYDROCODONE-ACETAMINOPHEN [id number] Acti ve Shola MCGILL Active HYDROCODONE-ACETAMINOPHEN 10-325 MG TABS 1 by mouth ev chaka 8 hours as needed for pain HYDROCODONE-ACETAMINOPHEN 20024145607 No Longer Active Jillina Frazell OUTSIDE SALES ACCOUNT REPRESENTATIVE Active LORATADINE 10 MG TABS 1 tablet by mouth daily L ORATADINE 58527694362 No Longer Active Jillina Frazell OUTSIDE SALES ACCOUNT REPRESENTATIVE Active DIFLUCAN 150 MG TAB 1 qODay x 2 doses FLUCONAZO LE 79097191914 No Longer Active Jillina Frazell OUTSIDE SALES ACCOUNT REPRESENTATIVE Active CYCLOBENZAPRINE HCL 10 MG TABS 1/2 - 1 tab PO tid PRN back p ain, muscle spasm CYCLOBENZAPRINE HCL 92462266418 No Longer Active Karen herson Frazell OUTSIDE SALES ACCOUNT REPRESENTATIVE Active AUGMENTIN 875-125 MG TAB 1 tab by mouth twice daily with food 20 22/05/07 AMOXICILLIN-POT CLAVULANATE 43424645791 No Longer Active Loida Rios MD Active MOBIC 15 MG TABS 1 tab daily MELOXICAM 150008445 14 No Longer Active Abdirahman Rios MD Active PERCOCET 7.5-325 MG TABS 1 PO tid PRN pain OXYCODONE-ACETAMINOPHEN 49040083881 No Longer Active Abdirahman Rios MD Active LIDODERM 5 % PTCH One patch to painful area [place]. On for 12 hrs, off for 12 hrs. LIDOCAINE 83476577345 No Longer Active Abdirahman Rios MD Active PERCOCET 7.5-325 MG TABS 1 PO q 8 hrs PRN pain OXYCODONE-ACETAMINOPHEN 03479433089 No Longer Active Shola MCGILL Active HYDROCODONE-ACETAMINOPHEN 7.5-325 MG TABS 1 by mouth e very 6 hours as needed for pain HYDROCODONE-ACETAMINOPHEN 76871830950 No Longer Active Good Julian MD Active CLINDAMYCIN HCL 300 MG CAPS 1 po QID x 7 days CLINDAMYCIN HCL 74759000516 No Longer Active Abdirahman Rios MD Activ e BACTRIM DS 800-160 MG TABS 1 po BID x 7 days 5 SULFAMETHOXAZOLE-TRIMETHOPRIM 98391411764 No Longer Active Abdirahman Rios MD Active ENDOCET 10-325 MG TABS 1 q 6 hr prn OXYCODONE-ACETAMINOPHEN 26966459261 No Longer Active Abdirahman Rios MD Active IBUPROFEN 800 MG TABS 1 tid prn IBUPROFEN 878903 55929 No Longer Active Abdirahman Rios MD Active BACTRIM DS 800-160 MG TABS by mouth twice a day 11/05 SULFAMETHOXAZOLE-TRIMETHOPRIM 75017561342 No Longer Active Good Julian MD Active HYDROCODONE-ACETAMINOPHEN 7.5-325 MG TABS 1 four times a day as needed for pain HYDROCODONE-ACETAMINOPHEN 29942963376 No Longer Activ e Good Julian MD Active KEFLEX 500 MG CAP 1 tab po tid CEPHALEXIN 178017 57123 No Longer Active Hira Moser APRN Active IBUPROFEN 800 MG TAB 1 pill three times daily as needed for pain IBUPROFEN 99136271077 No Longer Active Kalpesh Dong MD Active PROMETHAZINE-CODEINE 6.25-10 MG/5ML SYRP 1 tsp every 6 hrs prn c ough PROMETHAZINE-CODEINE 24126957408 No Longer Active Kalpesh Carr Active ALPRAZOLAM 0.5 MG TABS 1 PO bid PRN ALPRAZOLAM 296511 43619 Active Jillina Frazell OUTSIDE SALES ACCOUNT REPRESENTATIVE Active HYDROCODONE-ACETAMINOPHEN 5-325 MG TABS 1 tab by mouth every 6 hours as needed HYDROCODONE-ACETAMINOPHEN 74425351665 No Longer Activ e Shola MCGILL Active CEPHALEXIN 500 MG CAPS 1 PO bid x 7 days CEPHAL EXIN 42817753086 No Longer Active Shola MCGILL Active BACTRIM DS 800-160 MG TAB 1 tab by mouth twice daily 2 TRIMETHOPRIM-SULFAMETHOXAZOLE 18623152314 No Longer Active Kalpesh Dong MD Active HYDROCODONE-ACETAMINOPHEN 5-325 MG TABS 1 PO tid PRN pain 5 HYDROCODONE-ACETAMINOPHEN 14327083959 No Longer Active Abhinav Galvan MD Active IMPLANON 68 MG IMPL IMPLANTED IN LEFT ARM ETONO GESTREL 21443066221 No Longer Active Hira Moser APRN Active AMOXICILLIN 500 MG TABS 2 tabs PO bid x 10 d AM OXICILLIN 32561066735 No Longer Active Kalpesh Dong MD Active LEVAQUIN 500 MG TABS 1 PO q day x 7 days LEVOFL OXACIN 36612139905 No Longer Active Shola MCGILL Active PROAIR HFA 108 (90 BASE) MCG/ACT AERS 2 puff q 4-6 hrs PRN ALBUTEROL SULFATE 76480191315 Active Edilberto Marino DO Active FIORICET 50-325-40 MG TABS 2 PO q 8 hrs PRN FOSTER [id number] Active Shola MCGILL Active AMITRIPTYLINE HCL 25 MG TAB 1 tab by mouth daily 60 minutes before bedtime AMITRIPTYLINE HCL 15909497954 No Longer Active Shola MCGILL Active LORTAB 5 5-500 MG TABS 1/2 to 1 tablet by mouth go ry 6 hours as needed for pain HYDROCODONE-ACETAMINOPHEN 06445676762 No Longer Active Shola MCGILL Active CEPHALEXIN 500 MG TABS Take one by mouth four times daily, morning, noon, early evening and bedtime. CEPHALEXIN 62323572745 No Long er Active Hira Moser OUTSIDE SALES ACCOUNT REPRESENTATIVE Active TYLENOL/CODEINE #3 300-30 MG TAB 1-2 po q6hr PRN Pain ACETAMINOPHEN-CODEINE 37173683942 No Longer Active Edilberto Marino DO Active PRISTIQ 50 MG [id number] 1 po qd DESVENLAFAXI NE SUCCINATE 30703638407 No Longer Active Edilberto Marino DO Active PENICILLIN V POTASSIUM 500 MG TAB 1 four times a day 2 PENICILLIN V POTASSIUM 79856433292 No Longer Active Edilberto Marino DO Active DOXYCYCLINE HYCLATE 100 MG CAPS Take one (1) tablet by mouth twice a day DOXYCYCLINE HYCLATE 34450977313 No Longer Active Ronnie Galvan MD Active HYDROCODONE-ACETAMINOPHEN 5-325 MG TABS 1 po q 6hr PRN Pain 2011 HYDROCODONE-ACETAMINOPHEN 56765526591 No Longer Active Jerson Perez RN Active BACTRIM DS 800-160 MG TAB 1 tab by mouth twice daily 2 TRIMETHOPRIM-SULFAMETHOXAZOLE 97601669677 No Longer Active Kalpesh Dong MD Active LORTAB 5 5-500 MG TABS 1/2 to 1 tablet by mouth go ry 4 hours as needed for pain HYDROCODONE-ACETAMINOPHEN 09093940447 No Longer Active Kalpesh Dong MD Active GENERESS FE 0.8-25 MG-MCG CHEW Take one by mouth daily NORETHIN-ETH ESTRADIOL-FE 14442075740 No Longer Active Kalpesh Dong MD Active HYDROCODONE-ACETAMINOPHEN 7.5-500 MG TABS 1-2 every 4 hours as needed HYDROCODONE-ACETAMINOPHEN 60684459172 No Longer Activ e Kalpesh Dong MD Active FERROUS SULFATE 325 (65 FE) MG TABS 1 tablet by mouth twice yung y FERROUS SULFATE 38852893444 No Longer Active Kalpesh Dong MD Active IBUPROFEN 600 MG TAB 1 po q6-8hr PRN IBUPROFEN 60897288225 No Longer Active Kalpesh Dong MD Active SPIRONOLACTONE 25 MG TAB 1 tablet by mouth daily 01/22 SPIRONOLACTONE 90004904093 No Longer Active Kalpesh Dong MD Acti ve HYDROCODONE-ACETAMINOPHEN 7.5-325 MG TABS 1 po QID PRN Pain 2011 HYDROCODONE-ACETAMINOPHEN 80419941939 No Longer Active Kalpesh Dong MD Active CLINDAMYCIN HCL 300 MG CAPS 1 po q6hr x 7 days CLINDAMYCIN HCL 96120703691 No Longer Active Edilberto Marino DO Active PREDNISONE 20 MG TAB 2 tabs daily for 4 days, 1 t ab daily for 4 days, 1/2 tab daily for 4 days PREDNISONE 73494653536 No Longer Active Edilberto Marino DO Active PERCOCET 5-325 MG TABS 1 tablet by mouth every 6 hours as ne eded for pain OXYCODONE-ACETAMINOPHEN 15753317928 No Longer Active Abdirahman Rios MD Active VITAMINS TABS Take one by mouth daily MV & MIN W/FE-FA TABS 19281179378 No Longer Active Abdirahman Rios MD Active LUIS 3-0.02 MG TABS 1 tablet by mouth daily as directed DROSPIRENONE-ETHINYL ESTRADIOL 77051471027 No Longer Active Abdirahman Rios MD Active LORATADINE 10 MG TABS 1 tablet by mouth daily L ORATADINE 47426822452 No Longer Active Kalpesh Dong MD Active HYDROCODONE-ACETAMINOPHEN 5-325 MG TABS 1 po q 6hr PRN Pain 2010 HYDROCODONE-ACETAMINOPHEN 17854061889 No Longer Active Edilberto Marino DO Active BACTRIM DS 800-160 MG TAB 1 tab by mouth twice daily 2 TRIMETHOPRIM-SULFAMETHOXAZOLE 88745306661 No Longer Active Abdirahman Rios MD Active 28-0.8 MG TABS Take one by mouth daily 09/20 VIT-FE FUMARATE-FA 41579315722 No Longer Active Abdirahman Rios MD Active CIPRO 500 MG TAB 1 tablet by mouth twice daily CIPROFLOXACIN HCL 77807948877 No Longer Active Abdirahman Rios MD Active BENADRYL 25 MG CAP 1 po q8hr PRN Congestion DIPHENHYDRAMINE HCL 72324205949 No Longer Active Abdirahman Rios MD Active ZOLOFT 50 MG TAB 1 po qd SERTRALINE HCL 552749 91785 No Longer Active Abdirahman Rios MD Active AMOXICILLIN 875 MG TABS 1 tab by mouth twice daily 201 08/09/13 AMOXICILLIN 77352755621 No Longer Active Abdirahman Rios MD Activ e AMOXICILLIN 875 MG TABS 1 tab by mouth twice daily 201 07/19/27 AMOXICILLIN 80816203191 No Longer Active Abdirahman Rios MD Activ e BACTRIM DS 800-160 MG TAB 2 tab by mouth twice daily 2 TRIMETHOPRIM-SULFAMETHOXAZOLE 46749520615 No Longer Active Abdirahman Rios MD Active KEFLEX 500 MG CAP 1 po tid x 10 days CEPHALEXIN 11876070278 No Longer Active Abdirahman Rios MD Active AMOXICILLIN 875 MG TABS 1 tab by mouth twice daily 201 07/18/07 AMOXICILLIN 93770617341 No Longer Active Abdirahman Rios MD Activ e BACTRIM DS 800-160 MG TAB 2 tab by mouth twice daily 2 BACTRIM DS 800-160 MG TAB TRIMETHOPRIM-SULFAMETHOXAZOLE Inactive ZOLOFT 50 MG TAB 1 po qd ZOLOFT 50 MG TAB 3129 41 SERTRALINE HCL Inactive BENADRYL 25 MG CAP 1 po q8hr PRN Congestion BENADRYL 25 MG CAP 4913845 DIPHENHYDRAMINE HCL Inactive 28-0.8 MG TABS Take one by mouth daily 09/20 28-0.8 MG TABS VIT-FE FUMARATE-FA Inactive HYDROCODONE-ACETAMINOPHEN 5-325 MG TABS 1 po q 6hr PRN Pain 2010 HYDROCODONE-ACETAMINOPHEN 5-325 MG TABS 583965 HYDROCODONE-ACETAMINOPHEN Inactive LORATADINE 10 MG TABS 1 tablet by mouth daily LORATADINE 10 MG TABS 372471 LORATADINE Inactive LUIS 3-0.02 MG TABS 1 tablet by mouth daily as directed LUIS 3-0.02 MG TABS DROSPIRENONE-ETHINYL ESTRADIOL Inactive VITAMINS TABS Take one by mouth daily VITAMINS TABS MV & MIN W/FE-FA TABS Inactive PERCOCET 5-325 MG TABS 1 tablet by mouth every 6 hours as ne eded for pain PERCOCET 5-325 MG TABS 8022213 OXYCODONE-ACETAMIN OPHEN Inactive PREDNISONE 20 MG TAB 2 tabs daily for 4 days, 1 t ab daily for 4 days, 1/2 tab daily for 4 days PREDNISONE 20 MG TAB 137788 PREDNISON E Inactive CLINDAMYCIN HCL 300 MG CAPS 1 po q6hr x 7 days CLINDAMYCIN HCL 300 MG CAPS 932213 CLINDAMYCIN HCL Inactive HYDROCODONE-ACETAMINOPHEN 7.5-325 MG TABS 1 po QID PRN Pain 2011 HYDROCODONE-ACETAMINOPHEN 7.5-325 MG TABS 248560 HYDROCODONE-ACETAMINOPHEN Inactive SPIRONOLACTONE 25 MG TAB 1 tablet by mouth daily 01/22 SPIRONOLACTONE 25 MG TAB 479170 SPIRONOLACTONE Inactive IBUPROFEN 600 MG TAB 1 po q6-8hr PRN IBUPROFEN 600 MG TAB 393777 IBUPROFEN Inactive FERROUS SULFATE 325 (65 FE) MG TABS 1 tablet by mouth twice yung y FERROUS SULFATE 325 (65 FE) MG TABS 051134 FERROUS SULF ATE Inactive HYDROCODONE-ACETAMINOPHEN 7.5-500 MG [...] PRN Pain 2011 HYDROCODONE-ACETAMINOPHEN 5-325 MG TABS 441751 HYDROCODONE-ACETAMINOPHEN Inactive DOXYCYCLINE HYCLATE 100 MG CAPS Take one (1) tablet by mouth twice a day DOXYCYCLINE HYCLATE 100 MG CAPS 555219 DOXYCYCLINE HYCLATE Inactive PENICILLIN V POTASSIUM 500 MG TAB 1 four times a day 2 PENICILLIN V POTASSIUM 500 MG TAB 576363 PENICILLIN V POTASSIUM [place] ctive PRISTIQ 50 MG [id number] 1 po qd PRISTIQ 50 MG [id number] DESVENLAFAXINE SUCCINATE Inactive TYLENOL/CODEINE #3 300-30 MG TAB 1-2 po q6hr PRN Pain TYLENOL/CODEINE #3 300-30 MG TAB 475015 ACETAMINOPHEN-CODEINE Inact krishna CEPHALEXIN 500 MG TABS Take one by mouth four times daily, morning, noon, early evening and bedtime. CEPHALEXIN 500 MG TABS 883921 CEPHALEXIN Inactive LORTAB 5 5-500 MG TABS 1/2 to 1 tablet by mouth go ry 6 hours as needed for pain LORTAB 5 5-500 MG TABS HYDROCODONE-A CETAMINOPHEN Inactive AMITRIPTYLINE HCL 25 MG TAB 1 tab by mouth daily 60 minutes before bedtime AMITRIPTYLINE HCL 25 MG TAB 266570 AMITRIPTYLINE HCL Inactive AMOXICILLIN 500 MG TABS 2 tabs PO bid x 10 d 7 AMOXICILLIN 500 MG TABS 856060 AMOXICILLIN Inactive IMPLANON 68 MG IMPL IMPLANTED IN LEFT ARM IMPLANON 68 MG IMPL ETONOGESTREL Inactive HYDROCODONE-ACETAMINOPHEN 5-325 MG TABS 1 PO tid PRN pain 5 HYDROCODONE-ACETAMINOPHEN 5-325 MG TABS 353313 HYDROCODONE-ACETAMIN OPHEN Inactive BACTRIM DS 800-160 MG TAB 1 tab by mouth twice daily 2 BACTRIM DS 800-160 MG TAB TRIMETHOPRIM-SULFAMETHOXAZOLE Inac tive CEPHALEXIN 500 MG CAPS 1 PO bid x 7 days CEPHALEXIN 500 MG CAPS 112146 CEPHALEXIN Inactive HYDROCODONE-ACETAMINOPHEN 5-325 MG TABS 1 tab by mouth every 6 hours as needed HYDROCODONE-ACETAMINOPHEN 5-325 MG TABS 779853 HYDROCODONE-ACETAMINOPHEN Inactive PROMETHAZINE-CODEINE 6.25-10 MG/5ML SYRP 1 tsp every 6 hrs prn c ough PROMETHAZINE-CODEINE 6.25-10 MG/5ML SYRP 483013 PROMETH AZINE-CODEINE Inactive IBUPROFEN 800 MG TAB 1 pill three times daily as needed for pain IBUPROFEN 800 MG TAB 440404 IBUPROFEN Inactive KEFLEX 500 MG CAP 1 tab po tid KEFLEX 500 MG CAP 942715 CEPHALEXIN Inactive HYDROCODONE-ACETAMINOPHEN 7.5-325 MG TABS 1 four times a day as needed for pain HYDROCODONE-ACETAMINOPHEN 7.5-325 MG TABS 413249 HYDROCODONE-ACETAMINOPHEN Inactive BACTRIM DS 800-160 MG TABS by mouth twice a day 11/05 BACTRIM DS 800-160 MG TABS SULFAMETHOXAZOLE-TRIMETHOPRIM Inactive IBUPROFEN 800 MG TABS 1 tid prn IBUPROFEN 800 MG TABS 997409 IBUPROFEN Inactive ENDOCET 10-325 MG TABS 1 q 6 hr prn ENDOC ET 10-325 MG TABS 6684434 OXYCODONE-ACETAMINOPHEN Inactive HYDROCODONE-ACETAMINOPHEN 7.5-325 MG TABS 1 by mouth e very 6 hours as needed for pain HYDROCODONE-ACETAMINOPHEN 7.5-325 MG TABS 907791 HYDROCODONE-ACETAMINOPHEN Inactive PERCOCET 7.5-325 MG TABS 1 PO q 8 hrs PRN pain PERCOCET 7.5-325 MG TABS 6418046 OXYCODONE-ACETAMINOPHEN Inactive LIDODERM 5 % PTCH One patch to painful area [place]. On for 12 hrs, off for 12 hrs. LIDODERM 5 % PTCH 8010619 LIDOCAINE Inactiv e PERCOCET 7.5-325 MG TABS 1 PO tid PRN pain PERCOCET 7.5- 325 MG TABS 7830926 OXYCODONE-ACETAMINOPHEN Inactive MOBIC 15 MG TABS 1 tab daily MOBIC 15 MG TABS 15 2695 MELOXICAM Inactive CYCLOBENZAPRINE HCL 10 MG TABS 1/2 - 1 tab PO tid PRN back p ain, muscle spasm CYCLOBENZAPRINE HCL 10 MG TABS 501306 CYCLOBENZA JOSEPH HCL Inactive LORATADINE 10 MG TABS 1 tablet by mouth daily LORATADINE 10 MG TABS 406320 LORATADINE Inactive HYDROCODONE-ACETAMINOPHEN 10-325 MG TABS 1 by mouth ev chaka 8 hours as needed for pain HYDROCODONE-ACETAMINOPHEN 10-325 MG TABS 444162 HYDROCODONE-ACETAMINOPHEN Inactive LC-5 LIDOCAINE 5 % CREA apply 1 time daily to affected area 2013 LC-5 LIDOCAINE 5 % CREA LIDOCAINE (ANORECTAL) In active PERCOCET 5-325 MG TAB 1 every 6 hours as needed PERCOCET 5-325 MG TAB 7530741 OXYCODONE-ACETAMINOPHEN Inactive AMOXICILLIN 875 MG TABS 1 tab by mouth twice daily 201 07/18/07 AMOXICILLIN 875 MG TABS 648100 AMOXICILLIN Inactive KEFLEX 500 MG CAP 1 po tid x 10 days KEFLEX 500 MG CAP 407779 CEPHALEXIN Inactive AMOXICILLIN 875 MG TABS 1 tab by mouth twice daily 201 07/19/27 AMOXICILLIN 875 MG TABS 980732 AMOXICILLIN Inactive AMOXICILLIN 875 MG TABS 1 tab by mouth twice daily 201 08/09/13 AMOXICILLIN 875 MG TABS 725702 AMOXICILLIN Inactive CIPRO 500 MG TAB 1 tablet by mouth twice daily CIPRO 500 MG TAB 755982 CIPROFLOXACIN HCL Inactive BACTRIM DS 800-160 MG TAB 1 tab by mouth twice daily 2 BACTRIM DS 800-160 MG TAB TRIMETHOPRIM-SULFAMETHOXAZOLE Inac tive LEVAQUIN 500 MG TABS 1 PO q day x 7 days LEVAQUIN 500 MG TABS 876790 LEVOFLOXACIN Inactive CLINDAMYCIN HCL 300 MG CAPS 1 po QID x 7 days CLINDAMYCIN HCL 300 MG CAPS 917864 CLINDAMYCIN HCL Inactive AUGMENTIN 875-125 MG TAB 1 tab by mouth twice daily with food 22/05/07 AUGMENTIN 875-125 MG TAB 114208 AMOXICILLIN-POT [place] Inactive DIFLUCAN 150 MG TAB 1 qODay x 2 doses DIFLUCAN 150 MG TAB 627125 FLUCONAZOLE Inactive Advance Directives Directive Description Start Date PERMISSION TO SHARE Immunizations Vaccine Administration Date Value Standard Alf cription Seasonal influenza vaccine, injectable, containing preservative, for > 3 years old (Afluria, FluLaval, Fluzone, Fluvirin, Fluarix, Agriflu(>= 18 yo)) Fluzone (>3 yrs.) [[id number]] Influenza, seasonal, inject able Seasonal influenza vaccine, injectable, preservative free, for > 3 years old (Afluria, FluLaval, Fluzone, Fluvirin, Fluarix, Agriflu(>= 18 yo)) Fluzone preservative free (>3 yrs.) [[id number]] Influenza, seasonal, injectable, preservative free Seasonal influenza vaccine, injectable, containing preservative, for > 3 years old (Afluria, FluLaval, Fluzone, Fluvirin, Fluarix, Agriflu(>= 18 yo)) Fluzone (>3 yrs.) [[id number]] Influenza, seasonal, inject able Seasonal influenza vaccine, injectable, containing preservative, for > 3 years old (Afluria, FluLaval, Fluzone, Fluvirin, Fluarix, Agriflu(>= 18 yo)) Fluzone (>3 yrs.) [[id number]] Influenza, seasonal, inject able dT (Diphtheria and [...] pressure, diastolic - 8462-4 92 mm[Hg] BP ribiero blood pressure, systolic - 8480-6 147 mm[Hg] [...] ... - Chemistry sodium, serum 140 mmol/L 361-851 1927/02/24 potassium, serum 4.3 mmol/L 3.5-5.2 chloride, serum [...] 4.3-6.0 Lab Report: T3, TOTAL, INSULIN - [employer] ry triiodothyronine (T3), serum 78 ng/dL 76-181 Office Visit: low blood sugars - Chemis try cholesterol, target level 200 mg/dL triglyceride, target level 200 mg/dL HDL cholesterol, serum, target level 35 mg/dL LDL target level 100 mg/dL Encounters Code Encounter Date Provider Facility CPT-82786 Level 3 Est. Patient 17:32:57 AUTOMOTIVE WHOLESALE PARTS ADVISOR Edilberto tiwari [facility] CPT-16328 Level 3 Est. Patient 17:22:33 AUTOMOTIVE WHOLESALE PARTS ADVISOR Edilbreto tiwari [facility] CPT-48089 Level 2 Est. Patient 16:57:09 AUTOMOTIVE WHOLESALE PARTS ADVISOR Kalpesh goins MD [facility] CPT-56710 Level 3 Est. Patient 14:03:08 AUTOMOTIVE WHOLESALE PARTS ADVISOR Abdirahman Rios MD [facility] CPT-20745 Level 3 Est. Patient 18:12:34 CDT Shola Wright [facility] CPT-76642 Level 3 Est. Patient 19:34:46 CDT Shola Wright [facility] CPT-24589 Level 3 Est. Patient 14:19:37 CDT Abdirahman Rios MD [facility] CPT-95695 Level 3 Est. Patient 14:11:58 CDT Kalpesh goins MD [facility] CPT-80287 Level 3 Est. Patient 16:50:00 CDT Michelle MERCADO [facility] CPT-45160 Level 3 Est. Patient 17:11:32 AUTOMOTIVE WHOLESALE PARTS ADVISOR Brandie bates MD PhD [facility] CPT-24933 Level 3 Est. Patient 16:31:47 AUTOMOTIVE WHOLESALE PARTS ADVISOR Shola Wright [facility] CPT-56464 Level 3 Est. Patient 17:51:10 AUTOMOTIVE WHOLESALE PARTS ADVISOR Abhinav Galvan MD [facility] CPT-01717 Level 4 Est. Patient 12:54:56 AUTOMOTIVE WHOLESALE PARTS ADVISOR Kalpesh goins MD [facility]-27784 Level 4 Est. Patient 12:53:56 AUTOMOTIVE WHOLESALE PARTS ADVISOR Kalpesh goins MD [facility] CPT-62781 Level 3 Est. Patient 17:56:58 CDT Shola Houghsabi [facility] CPT-66056 Level 3 Est. Patient 14:26:20 CDT Janak Maurizioamira butcher [facility] CPT-55727 Level 3 Est. Patient 09:38:41 CDT Shola Wright [facility] CPT-78010 Level 3 Est. Patient 14:45:26 CDT Edilberto tiwari [facility] CPT-16881 Level 3 Est. Patient 10:51:33 CDT Hira muniz [facility] CPT-14763 Level 3 Est. Patient 11:57:55 AUTOMOTIVE WHOLESALE PARTS ADVISOR Shola Wright [facility] CPT-11904 Level 3 Est. Patient 09:53:33 AUTOMOTIVE WHOLESALE PARTS ADVISOR Edilberto tiwari [facility] CPT-72233 Level 3 Est. Patient 14:42:54 AUTOMOTIVE WHOLESALE PARTS ADVISOR Abhinav Galvan MD [facility] CPT-61977 Level 3 Est. Patient 15:10:02 CDT Janak Maurizioamira butcher [facility] CPT-98739 Level 3 Est. Patient 15:20:20 CDT Theo dennis MD [facility] CPT-40037 Level 2 Est. Patient 14:08:57 CDT Kalpesh goins MD [facility] CPT-18710 Level 3 Est. Patient 13:56:19 CDT Abdirahman Rios MD [facility] CPT-99869 Level 3 Est. Patient 13:59:37 CDT Abdirahman Rios MD [facility] CPT-90404 Level 2 Est. Patient 14:44:59 CDT Kalpesh goins MD [facility] CPT-24420 Level 3 Est. Patient 06:06:23 CDT Edilberto tiwari DO [facility] CPT-58980 Level 3 Est. Patient 15:23:54 CDT Abdirahman Rios MD [facility] CPT-49961 Level 3 Est. Patient 15:43:49 CDT Abdirahman Rios MD [facility] CPT-33488 Level 3 Est. Patient 12:46:47 AUTOMOTIVE WHOLESALE PARTS ADVISOR Abdirahman Rios MD [facility] CPT-24763 Level 3 Est. Patient 08:13:35 AUTOMOTIVE WHOLESALE PARTS ADVISOR Abdirahman Rios MD [facility] CPT-69325 Level 2 Est. Patient 09:36:42 AUTOMOTIVE WHOLESALE PARTS ADVISOR Abdirahman Rios MD [facility] CPT-75489 Level 3 Est. Patient 10:56:43 CDT Abdirahman Rios MD [facility] CPT-79182 Level 3 Est. Patient 18:24:52 CDT Abdirahman Rios MD [facility] CPT-89660 Level 3 Est. Patient 13:27:22 CDT Abdirahman Rios MD [facility] Procedures Code Procedure Name Date Entry Date Standard Desc ription CPT-J0696 Rocephin 1000 mg (Ceftriaxone) 17:22:33 AUTOMOTIVE [employer]ESALE [employer]S ADVISOR CPT-81082 Postop F/U Visit 18:41:07 AUTOMOTIVE WHOLESALE [employer]S ADVISOR CPT-46839 Postop F/U Visit 08:19:08 AUTOMOTIVE WHOLESALE [employer]S ADVISOR CPT-15141 Immunization Single Admin 16:41:53 CDT 2013 CPT-17960 Fluzone Quadrivalent Intramuscular Suspe nsion 0.5 ML 16:41:53 CDT CPT-OV Office Visit 16:39:18 CDT CPT-OV Office Visit 16:16:36 CDT CPT-OV Office Visit 15:34:48 CDT CPT-67541 Postop F/U Visit 14:50:12 CDT CPT-30735 Postop F/U Visit 14:41:10 CDT CPT-63396 Venipuncture Draw Fee 11:38:04 AUTOMOTIVE [employer]OLESALE [employer]S ADVISOR CPT-66598 Postop F/U Visit 19:02:59 AUTOMOTIVE WHOLESALE PARTS ADVISOR CPT-87666 Postop F/U Visit 12:04:54 AUTOMOTIVE WHOLESALE PARTS ADVISOR CPT-62658 Administration single or combination vac cine inc oral 15:56:43 CDT CPT-11771 Influenza split virus > age 3 15:56:43 CDT CPT-31749 Hand comp min 3V 14:25:19 CDT CPT-86658 Postop F/U Visit 21:40:51 CDT CPT-00571 Postop F/U Visit 10:58:43 CDT CPT-66359 Administration single or combination vac cine inc oral 12:33:54 [employer] CPT-79092 Influenza Preservative Free split virus >age 3 12:33:54 [employer] CPT-47818 Administration single or combination vac cine inc oral 09:30:51 CDT CPT-06616 Influenza split virus > age 3 09:30:51 CDT CPT-56593 Postop F/U Visit 15:14:53 CDT CPT-75953 Postop F/U Visit 13:50:14 CDT CPT-26885 Postop F/U Visit 13:34:52 CDT CPT-OV Office Visit 16:55:03 CDT CPT-94322 [place] of cervix w bx ECC 13:32:50 CDT 10/19 CPT-J1885 Toradol 60 mg (Ketorolac) 15:31:59 CDT 2011 CPT-J1885 Toradol 60 mg (Ketorolac) 15:23:54 CDT 2011 CPT-65447 Visit 11:34:37 [employer] CPT-78121 Visit 10:52:39 [employer] CPT-42751 Visit 10:12:02 [employer] CPT-90239 Visit 11:22:43 [employer]IVE [employer] CPT-63222 Visit 11:24:12 [employer]IVE [employer] CPT-72089 Visit 10:47:05 [employer]OMOTIVE [employer] ADVIS[employer] CPT-OV Office Visit 10:26:16 [employer]OTIVE [employer] CPT-OV Office Visit 15:34:31 [employer]IVE [employer] CPT-92438 Visit 10:42:08 [employer]IVE [employer] CPT-13446 Visit 10:52:45 [employer] CPT-000 Give Appropriate Flu Vaccine 16:56:41 CDT 2 CPT-02512 Administration single or combination vac cine inc oral 10:33:21 CDT CPT-48279 Influenza split virus > age 3 10:33:21 CDT CPT-17631 Visit 13:23:09 CDT CPT-40215 Visit 18:24:52 CDT CPT-41926 Sono OB comp > 14 weeks 12:07:49 CDT 04/07
--- OUTSIDE RECORDS SUMMARY | 2020-01-18 16:53 | XMS REPORT | Clinical Summary ---
Author Author Admin, Jeri Rashid Organization [facility] Address Unknown Phone Unavailable Allergies, Adverse Reactions, [...] sinusitis, unspecified Hidradenitis 705.83 Active Hira Moser SET UP OPERATOR TOOL Hidradenitis AFTERCARE FOLLOW SURGERY SKIN&SUBCUT TISSUE NEC V58.77 07/28 Active Kalpesh Dong MD Aftercare following surgery of the skin and subcutaneous tissue, NEC Impetigo 684 Active Edilberto Marino DO Im petigo , INCIDENTAL PROBLEM ICD-V22.2 Inacti ve Abdiramhan Rios MD LARGE FOR GESTATIONAL AGE ICD-656.60 [...] Inactive Good Julian MD ACUTE BRONCHITIS ICD-466.0 Jose M [...] 500 MG CAP 1 po qid CEPHALEXIN 113064302 20 No Longer Active Kalpesh Dong MD Active PERCOCET 5-325 MG TAB 1 every 6 hours as needed OXYCODONE-ACETAMINOPHEN 47901985694 No Longer Active Shola MCGILL Active LC-5 LIDOCAINE 5 % CREA apply 1 time daily to affected area 2013 LIDOCAINE (ANORECTAL) 36999590243 No Longer Active Matthewllina Alessandra garciaell SET UP OPERATOR TOOL Active HYDROCODONE-ACETAMINOPHEN 5-325 MG TABS 2 tablets by m outh every 8 hours as needed for pain HYDROCODONE-ACETAMINOPHEN 35883657464 Acti ve Shola MCGILL Active HYDROCODONE-ACETAMINOPHEN 10-325 MG TABS 1 by mouth ev chaka 8 hours as needed for pain HYDROCODONE-ACETAMINOPHEN 48079699587 No Longer Active Jillina Frazell SET UP OPERATOR TOOL Active LORATADINE 10 MG TABS 1 tablet by mouth daily L ORATADINE 35323404346 No Longer Active Jillina Frazell SET UP OPERATOR TOOL Active DIFLUCAN 150 MG TAB 1 qODay x 2 doses FLUCONAZO LE 67332421777 No Longer Active Jillina Frazell SET UP OPERATOR TOOL Active CYCLOBENZAPRINE HCL 10 MG TABS 1/2 - 1 tab PO tid PRN back p ain, muscle spasm CYCLOBENZAPRINE HCL 11922234157 No Longer Active Karen siri Frazell SET UP OPERATOR TOOL Active AUGMENTIN 875-125 MG TAB 1 tab by mouth twice daily with food 20 22/05/07 AMOXICILLIN-POT CLAVULANATE 34176855296 No Longer Active Loida Rios MD Active MOBIC 15 MG TABS 1 tab daily MELOXICAM 713533364 14 No Longer Active Abdirahman Rios MD Active PERCOCET 7.5-325 MG TABS 1 PO tid PRN pain OXYCODONE-ACETAMINOPHEN 73454508975 No Longer Active Abdirahman Rios MD Active LIDODERM 5 % PTCH One patch to painful area [place] N. On for 12 hrs, off for 12 hrs. LIDOCAINE 93211560283 No Longer Active Abdirahman Rios MD Active PERCOCET 7.5-325 MG TABS 1 PO q 8 hrs PRN pain OXYCODONE-ACETAMINOPHEN 27210044783 No Longer Active Shola MCGILL Active HYDROCODONE-ACETAMINOPHEN 7.5-325 MG TABS 1 by mouth e very 6 hours as needed for pain HYDROCODONE-ACETAMINOPHEN 19065931141 No Longer Active Good Julian MD Active CLINDAMYCIN HCL 300 MG CAPS 1 po QID x 7 days CLINDAMYCIN HCL 93945026064 No Longer Active Abdirahman Rios MD Activ e BACTRIM DS 800-160 MG TABS 1 po BID x 7 days 5 SULFAMETHOXAZOLE-TRIMETHOPRIM 85665772669 No Longer Active Abdirahman Rios MD Active ENDOCET 10-325 MG TABS 1 q 6 hr prn OXYCODONE-ACETAMINOPHEN 75160384908 No Longer Active Abdirahman Rios MD Active IBUPROFEN 800 MG TABS 1 tid prn IBUPROFEN 141012 12231 No Longer Active Abdirahman Rios MD Active BACTRIM DS 800-160 MG TABS by mouth twice a day 11/05 SULFAMETHOXAZOLE-TRIMETHOPRIM 07418957348 No Longer Active Good Julian MD Active HYDROCODONE-ACETAMINOPHEN 7.5-325 MG TABS 1 four times a day as needed for pain HYDROCODONE-ACETAMINOPHEN 28906167762 No Longer Activ e Good Julian MD Active KEFLEX 500 MG CAP 1 tab po tid CEPHALEXIN 662401 62614 No Longer Active Hira Moser APRN Active IBUPROFEN 800 MG TAB 1 pill three times daily as needed for pain IBUPROFEN 57879709669 No Longer Active Kalpesh Dong MD Active PROMETHAZINE-CODEINE 6.25-10 MG/5ML SYRP 1 tsp every 6 hrs prn c ough PROMETHAZINE-CODEINE 37953417652 No Longer Active Kalpesh Carr Active ALPRAZOLAM 0.5 MG TABS 1 PO bid PRN ALPRAZOLAM 945876 05172 Active Jillina Frazell SET UP OPERATOR TOOL Active HYDROCODONE-ACETAMINOPHEN 5-325 MG TABS 1 tab by mouth every 6 hours as needed HYDROCODONE-ACETAMINOPHEN 58827450438 No Longer Activ e Shola MCGILL Active CEPHALEXIN 500 MG CAPS 1 PO bid x 7 days CEPHAL EXIN 45026099591 No Longer Active Shola MCGILL Active BACTRIM DS 800-160 MG TAB 1 tab by mouth twice daily 2 TRIMETHOPRIM-SULFAMETHOXAZOLE 79527618153 No Longer Active Kalpesh Dong MD Active HYDROCODONE-ACETAMINOPHEN 5-325 MG TABS 1 PO tid PRN pain 5 HYDROCODONE-ACETAMINOPHEN 79115872454 No Longer Active Abhinav Galvan MD Active IMPLANON 68 MG IMPL IMPLANTED IN LEFT ARM ETONO GESTREL 44122657055 No Longer Active Hira Moser SET UP OPERATOR TOOL Active AMOXICILLIN 500 MG TABS 2 tabs PO bid x 10 d AM OXICILLIN 73427454713 No Longer Active Kalpesh Dong MD Active LEVAQUIN 500 MG TABS 1 PO q day x 7 days LEVOFL OXACIN 06732573443 No Longer Active Shola MCGILL Active PROAIR HFA 108 (90 BASE) MCG/ACT AERS 2 puff q 4-6 hrs PRN ALBUTEROL SULFATE 07823097814 Active Edilberto Marino DO Active FIORICET 50-325-40 MG TABS 2 PO q 8 hrs PRN FOSTER [id number] Active Shola MCGILL Active AMITRIPTYLINE HCL 25 MG TAB 1 tab by mouth daily 60 minutes before bedtime AMITRIPTYLINE HCL 84038461738 No Longer Active Shola MCGILL Active LORTAB 5 5-500 MG TABS 1/2 to 1 tablet by mouth go ry 6 hours as needed for pain HYDROCODONE-ACETAMINOPHEN 08634041923 No Longer Active Shola MCGILL Active CEPHALEXIN 500 MG TABS Take one by mouth four times daily, morning, noon, early evening and bedtime. CEPHALEXIN 41162496165 No Long er Active Hira Moser SET UP OPERATOR TOOL Active TYLENOL/CODEINE #3 300-30 MG TAB 1-2 po q6hr PRN Pain ACETAMINOPHEN-CODEINE 10878904038 No Longer Active Edilberto Marino DO Active PRISTIQ 50 MG [id number] 1 po qd DESVENLAFAXI NE SUCCINATE 46217102288 No Longer Active Edilberto Marino DO Active PENICILLIN V POTASSIUM 500 MG TAB 1 four times a day 2 PENICILLIN V POTASSIUM 35651053239 No Longer Active Edilberto Marino DO Active DOXYCYCLINE HYCLATE 100 MG CAPS Take one (1) tablet by mouth twice a day DOXYCYCLINE HYCLATE 27709584609 No Longer Active Ronnie Galvan MD Active HYDROCODONE-ACETAMINOPHEN 5-325 MG TABS 1 po q 6hr PRN Pain 2011 HYDROCODONE-ACETAMINOPHEN 76454184433 No Longer Active Jerson Perez RN Active BACTRIM DS 800-160 MG TAB 1 tab by mouth twice daily 2 TRIMETHOPRIM-SULFAMETHOXAZOLE 76533182546 No Longer Active Kalpesh Dong MD Active LORTAB 5 5-500 MG TABS 1/2 to 1 tablet by mouth go ry 4 hours as needed for pain HYDROCODONE-ACETAMINOPHEN 57320352914 No Longer Active Kalpesh Dong MD Active GENERESS FE 0.8-25 MG-MCG CHEW Take one by mouth daily NORETHIN-ETH ESTRADIOL-FE 89870790732 No Longer Active Kalpesh Dong MD Active HYDROCODONE-ACETAMINOPHEN 7.5-500 MG TABS 1-2 every 4 hours as needed HYDROCODONE-ACETAMINOPHEN 68165820057 No Longer Activ e Kalpesh Dong MD Active FERROUS SULFATE 325 (65 FE) MG TABS 1 tablet by mouth twice yung y FERROUS SULFATE 48208166629 No Longer Active Kalpesh Dong MD Active IBUPROFEN 600 MG TAB 1 po q6-8hr PRN IBUPROFEN 09576104697 No Longer Active Kalpesh Dong MD Active SPIRONOLACTONE 25 MG TAB 1 tablet by mouth daily 01/22 SPIRONOLACTONE 98349649321 No Longer Active Kalpesh Dong MD Acti ve HYDROCODONE-ACETAMINOPHEN 7.5-325 MG TABS 1 po QID PRN Pain 2011 HYDROCODONE-ACETAMINOPHEN 86964704237 No Longer Active Kalpesh Dong MD Active CLINDAMYCIN HCL 300 MG CAPS 1 po q6hr x 7 days CLINDAMYCIN HCL 48246680442 No Longer Active Edilberto Marino DO Active PREDNISONE 20 MG TAB 2 tabs daily for 4 days, 1 t ab daily for 4 days, 1/2 tab daily for 4 days PREDNISONE 95928772505 No Longer Active Edilberto Marino DO Active PERCOCET 5-325 MG TABS 1 tablet by mouth every 6 hours as ne eded for pain OXYCODONE-ACETAMINOPHEN 90453538799 No Longer Active Abdirahman Rios MD Active VITAMINS TABS Take one by mouth daily MV & MIN W/FE-FA TABS 06976307768 No Longer Active Abdirahman Rios MD Active LUIS 3-0.02 MG TABS 1 tablet by mouth daily as directed DROSPIRENONE-ETHINYL ESTRADIOL 30769466568 No Longer Active Abdirahman Rios MD Active LORATADINE 10 MG TABS 1 tablet by mouth daily L ORATADINE 79346614446 No Longer Active Kalpesh Dong MD Active HYDROCODONE-ACETAMINOPHEN 5-325 MG TABS 1 po q 6hr PRN Pain 2010 HYDROCODONE-ACETAMINOPHEN 43024098307 No Longer Active Edilberot Marino DO Active BACTRIM DS 800-160 MG TAB 1 tab by mouth twice daily 2 TRIMETHOPRIM-SULFAMETHOXAZOLE 85152970869 No Longer Active Abdirahman Rios MD Active 28-0.8 MG TABS Take one by mouth daily 09/20 VIT-FE FUMARATE-FA 38230310401 No Longer Active Abdirahman Rios MD Active CIPRO 500 MG TAB 1 tablet by mouth twice daily CIPROFLOXACIN HCL 89105286515 No Longer Active Abdirahman Rios MD Active BENADRYL 25 MG CAP 1 po q8hr PRN Congestion DIPHENHYDRAMINE HCL 32510021855 No Longer Active Abdirahman Rios MD Active ZOLOFT 50 MG TAB 1 po qd SERTRALINE HCL 004184 08100 No Longer Active Abdirahman Rios MD Active AMOXICILLIN 875 MG TABS 1 tab by mouth twice daily 201 08/09/13 AMOXICILLIN 38529534676 No Longer Active Abdirahman Rios MD Activ e AMOXICILLIN 875 MG TABS 1 tab by mouth twice daily 201 07/19/27 AMOXICILLIN 20772877369 No Longer Active Abdirahman Rios MD Activ e BACTRIM DS 800-160 MG TAB 2 tab by mouth twice daily 2 TRIMETHOPRIM-SULFAMETHOXAZOLE 48620782144 No Longer Active Abdirahman Rios MD Active KEFLEX 500 MG CAP 1 po tid x 10 days CEPHALEXIN 54772634344 No Longer Active Abdirahman Rios MD Active AMOXICILLIN 875 MG TABS 1 tab by mouth twice daily 201 07/18/07 AMOXICILLIN 44322414368 No Longer Active Abdirahman Rios MD Activ e BACTRIM DS 800-160 MG TAB 2 tab by mouth twice daily 2 BACTRIM DS 800-160 MG TAB TRIMETHOPRIM-SULFAMETHOXAZOLE Inactive ZOLOFT 50 MG TAB 1 po qd ZOLOFT 50 MG TAB 3129 41 SERTRALINE HCL Inactive BENADRYL 25 MG CAP 1 po q8hr PRN Congestion BENADRYL 25 MG CAP 8713152 DIPHENHYDRAMINE HCL Inactive 28-0.8 MG TABS Take one by mouth daily 09/20 28-0.8 MG TABS VIT-FE FUMARATE-FA Inactive HYDROCODONE-ACETAMINOPHEN 5-325 MG TABS 1 po q 6hr PRN Pain 2010 HYDROCODONE-ACETAMINOPHEN 5-325 MG TABS 636401 HYDROCODONE-ACETAMINOPHEN Inactive LORATADINE 10 MG TABS 1 tablet by mouth daily LORATADINE 10 MG TABS 340013 LORATADINE Inactive LUIS 3-0.02 MG TABS 1 tablet by mouth daily as directed LUIS 3-0.02 MG TABS DROSPIRENONE-ETHINYL ESTRADIOL Inactive VITAMINS TABS Take one by mouth daily VITAMINS TABS MV & MIN W/FE-FA TABS Inactive PERCOCET 5-325 MG TABS 1 tablet by mouth every 6 hours as ne eded for pain PERCOCET 5-325 MG TABS 5349602 OXYCODONE-ACETAMIN OPHEN Inactive PREDNISONE 20 MG TAB 2 tabs daily for 4 days, 1 t ab daily for 4 days, 1/2 tab daily for 4 days PREDNISONE 20 MG TAB 714694 PREDNISON E Inactive CLINDAMYCIN HCL 300 MG CAPS 1 po q6hr x 7 days CLINDAMYCIN HCL 300 MG CAPS 416010 CLINDAMYCIN HCL Inactive HYDROCODONE-ACETAMINOPHEN 7.5-325 MG TABS 1 po QID PRN Pain 2011 HYDROCODONE-ACETAMINOPHEN 7.5-325 MG TABS 868510 HYDROCODONE-ACETAMINOPHEN Inactive SPIRONOLACTONE 25 MG TAB 1 tablet by mouth daily 01/22 SPIRONOLACTONE 25 MG TAB 550669 SPIRONOLACTONE Inactive IBUPROFEN 600 MG TAB 1 po q6-8hr PRN IBUPROFEN 600 MG TAB 915756 IBUPROFEN Inactive FERROUS SULFATE 325 (65 FE) MG TABS 1 tablet by mouth twice yung y FERROUS SULFATE 325 (65 FE) MG TABS 251541 FERROUS SULF ATE Inactive HYDROCODONE-ACETAMINOPHEN 7.5-500 MG [...] PRN Pain 2011 HYDROCODONE-ACETAMINOPHEN 5-325 MG TABS 349771 HYDROCODONE-ACETAMINOPHEN Inactive DOXYCYCLINE HYCLATE 100 MG CAPS Take one (1) tablet by mouth twice a day DOXYCYCLINE HYCLATE 100 MG CAPS 474634 DOXYCYCLINE HYCLATE Inactive PENICILLIN V POTASSIUM 500 MG TAB 1 four times a day 2 PENICILLIN V POTASSIUM 500 MG TAB 812743 PENICILLIN V POTASSIUM Siri ctive PRISTIQ 50 MG [id number] 1 po qd PRISTIQ 50 MG [id number] DESVENLAFAXINE SUCCINATE Inactive TYLENOL/CODEINE #3 300-30 MG TAB 1-2 po q6hr PRN Pain TYLENOL/CODEINE #3 300-30 MG TAB 313536 ACETAMINOPHEN-CODEINE Inact krishna CEPHALEXIN 500 MG TABS Take one by mouth four times daily, morning, noon, early evening and bedtime. CEPHALEXIN 500 MG TABS 796603 CEPHALEXIN Inactive LORTAB 5 5-500 MG TABS 1/2 to 1 tablet by mouth go ry 6 hours as needed for pain LORTAB 5 5-500 MG TABS HYDROCODONE-A CETAMINOPHEN Inactive AMITRIPTYLINE HCL 25 MG TAB 1 tab by mouth daily 60 minutes before bedtime AMITRIPTYLINE HCL 25 MG TAB 196989 AMITRIPTYLINE HCL Inactive AMOXICILLIN 500 MG TABS 2 tabs PO bid x 10 d 7 AMOXICILLIN 500 MG TABS 841920 AMOXICILLIN Inactive IMPLANON 68 MG IMPL IMPLANTED IN LEFT ARM IMPLANON 68 MG IMPL ETONOGESTREL Inactive HYDROCODONE-ACETAMINOPHEN 5-325 MG TABS 1 PO tid PRN pain 5 HYDROCODONE-ACETAMINOPHEN 5-325 MG TABS 096414 HYDROCODONE-ACETAMIN OPHEN Inactive BACTRIM DS 800-160 MG TAB 1 tab by mouth twice daily 2 BACTRIM DS 800-160 MG TAB TRIMETHOPRIM-SULFAMETHOXAZOLE Inac tive CEPHALEXIN 500 MG CAPS 1 PO bid x 7 days CEPHALEXIN 500 MG CAPS 803152 CEPHALEXIN Inactive HYDROCODONE-ACETAMINOPHEN 5-325 MG TABS 1 tab by mouth every 6 hours as needed HYDROCODONE-ACETAMINOPHEN 5-325 MG TABS 052983 HYDROCODONE-ACETAMINOPHEN Inactive PROMETHAZINE-CODEINE 6.25-10 MG/5ML SYRP 1 tsp every 6 hrs prn c ough PROMETHAZINE-CODEINE 6.25-10 MG/5ML SYRP 130018 PROMETH AZINE-CODEINE Inactive IBUPROFEN 800 MG TAB 1 pill three times daily as needed for pain IBUPROFEN 800 MG TAB 829153 IBUPROFEN Inactive KEFLEX 500 MG CAP 1 tab po tid KEFLEX 500 MG CAP 088176 CEPHALEXIN Inactive HYDROCODONE-ACETAMINOPHEN 7.5-325 MG TABS 1 four times a day as needed for pain HYDROCODONE-ACETAMINOPHEN 7.5-325 MG TABS 819310 HYDROCODONE-ACETAMINOPHEN Inactive BACTRIM DS 800-160 MG TABS by mouth twice a day 11/05 BACTRIM DS 800-160 MG TABS SULFAMETHOXAZOLE-TRIMETHOPRIM Inactive IBUPROFEN 800 MG TABS 1 tid prn IBUPROFEN 800 MG TABS 376522 IBUPROFEN Inactive ENDOCET 10-325 MG TABS 1 q 6 hr prn ENDOC ET 10-325 MG TABS 6699707 OXYCODONE-ACETAMINOPHEN Inactive HYDROCODONE-ACETAMINOPHEN 7.5-325 MG TABS 1 by mouth e very 6 hours as needed for pain HYDROCODONE-ACETAMINOPHEN 7.5-325 MG TABS 388029 HYDROCODONE-ACETAMINOPHEN Inactive PERCOCET 7.5-325 MG TABS 1 PO q 8 hrs PRN pain PERCOCET 7.5-325 MG TABS 7600789 OXYCODONE-ACETAMINOPHEN Inactive LIDODERM 5 % PTCH One patch to painful area MN N. On for 12 hrs, off for 12 hrs. LIDODERM 5 % PTCH 5541581 LIDOCAINE Inactiv e PERCOCET 7.5-325 MG TABS 1 PO tid PRN pain PERCOCET 7.5- 325 MG TABS 6013127 OXYCODONE-ACETAMINOPHEN Inactive MOBIC 15 MG TABS 1 tab daily MOBIC 15 MG TABS 15 2695 MELOXICAM Inactive CYCLOBENZAPRINE HCL 10 MG TABS 1/2 - 1 tab PO tid PRN back p ain, muscle spasm CYCLOBENZAPRINE HCL 10 MG TABS 214797 CYCLOBENZA JOSEPH HCL Inactive LORATADINE 10 MG TABS 1 tablet by mouth daily LORATADINE 10 MG TABS 163713 LORATADINE Inactive HYDROCODONE-ACETAMINOPHEN 10-325 MG TABS 1 by mouth ev chaka 8 hours as needed for pain HYDROCODONE-ACETAMINOPHEN 10-325 MG TABS 416886 HYDROCODONE-ACETAMINOPHEN Inactive LC-5 LIDOCAINE 5 % CREA apply 1 time daily to affected area 2013 LC-5 LIDOCAINE 5 % CREA LIDOCAINE (ANORECTAL) In active PERCOCET 5-325 MG TAB 1 every 6 hours as needed PERCOCET 5-325 MG TAB 4306307 OXYCODONE-ACETAMINOPHEN Inactive KEFLEX 500 MG CAP 1 po qid KEFLEX 500 MG CAP 30 9114 CEPHALEXIN Inactive AMOXICILLIN 875 MG TABS 1 tab by mouth twice daily 201 07/18/07 AMOXICILLIN 875 MG TABS 976738 AMOXICILLIN Inactive KEFLEX 500 MG CAP 1 po tid x 10 days KEFLEX 500 MG CAP 076487 CEPHALEXIN Inactive AMOXICILLIN 875 MG TABS 1 tab by mouth twice daily 201 07/19/27 AMOXICILLIN 875 MG TABS 084072 AMOXICILLIN Inactive AMOXICILLIN 875 MG TABS 1 tab by mouth twice daily 201 08/09/13 AMOXICILLIN 875 MG TABS 553033 AMOXICILLIN Inactive CIPRO 500 MG TAB 1 tablet by mouth twice daily CIPRO 500 MG TAB 005802 CIPROFLOXACIN HCL Inactive BACTRIM DS 800-160 MG TAB 1 tab by mouth twice daily 2 BACTRIM DS 800-160 MG TAB TRIMETHOPRIM-SULFAMETHOXAZOLE Inac tive LEVAQUIN 500 MG TABS 1 PO q day x 7 days LEVAQUIN 500 MG TABS 161849 LEVOFLOXACIN Inactive CLINDAMYCIN HCL 300 MG CAPS 1 po QID x 7 days CLINDAMYCIN HCL 300 MG CAPS 296303 CLINDAMYCIN HCL Inactive AUGMENTIN 875-125 MG TAB 1 tab by mouth twice daily with food 20 22/05/07 AUGMENTIN 875-125 MG TAB 694282 AMOXICILLIN-POT [place]A [place] Inactive DIFLUCAN 150 MG TAB 1 qODay x 2 doses DIFLUCAN 150 MG TAB 037972 FLUCONAZOLE Inactive Advance Directives Directive Description Start Date PERMISSION TO SHARE Immunizations Vaccine Administration Date Value Standard Alf cription Seasonal influenza vaccine, injectable, containing preservative, for > 3 years old (Afluria, FluLaval, Fluzone, Fluvirin, Fluarix, Agriflu(>= 18 yo)) Fluzone (>3 yrs.) [[id number]] Influenza, seasonal, inject able Seasonal influenza vaccine, injectable, preservative free, for > 3 years old (Afluria, FluLaval, Fluzone, Fluvirin, Fluarix, Agriflu(>= 18 yo)) Fluzone preservative free (>3 yrs.) [[id number]] Influenza, seasonal, injectable, preservative free Seasonal influenza vaccine, injectable, containing preservative, for > 3 years old (Afluria, FluLaval, Fluzone, Fluvirin, Fluarix, Agriflu(>= 18 yo)) Fluzone (>3 yrs.) [[id number]] Influenza, seasonal, inject able Seasonal influenza vaccine, injectable, containing preservative, for > 3 years old (Afluria, FluLaval, Fluzone, Fluvirin, Fluarix, Agriflu(>= 18 yo)) Fluzone (>3 yrs.) [[id number]] Influenza, seasonal, inject able dT (Diphtheria and Tetanus) booster given Histor ical Td(adult) unspecified formulation Vital Signs Date Name Value Unit Range Description blood pressure, diastolic - 8462-4 81 mm[Hg] [...] ... - Chemistry sodium, serum 140 mmol/L 111-147 1107/02/24 potassium, serum 4.3 mmol/L 3.5-5.2 chloride, serum [...] 4.3-6.0 Lab Report: T3, TOTAL, INSULIN - [facility] ry triiodothyronine (T3), serum 78 ng/dL 76-181 Office Visit: low blood sugars - Chemis try cholesterol, target level 200 mg/dL triglyceride, target level 200 mg/dL HDL cholesterol, serum, target level 35 mg/dL LDL target level 100 mg/dL Encounters Code Encounter Date Provider Facility CPT-67368 Level 2 Est. Patient 13:32:17 SPEECH AND HEARING CLINIC DIRECTOR Kalpesh goins MD [facility] CPT-31480 Level 3 Est. Patient 17:32:57 SPEECH AND HEARING CLINIC DIRECTOR Edilberto tiwari [facility] CPT-86103 Level 3 Est. Patient 17:22:33 SPEECH AND HEARING CLINIC DIRECTOR Edilberto tiwari [facility] CPT-51557 Level 2 Est. Patient 16:57:09 SPEECH AND HEARING CLINIC DIRECTOR Kalpesh goins MD [facility] CPT-78006 Level 3 Est. Patient 14:03:08 SPEECH AND HEARING CLINIC DIRECTOR Abdirahman Rios MD [facility] CPT-14255 Level 3 Est. Patient 18:12:34 CDT Shola Wright [facility] CPT-15413 Level 3 Est. Patient 19:34:46 CDT Shola Wright [facility] CPT-76957 Level 3 Est. Patient 14:19:37 CDT Abdirahman Rios MD [facility] CPT-03152 Level 3 Est. Patient 14:11:58 CDT Kalpesh goins MD [facility] CPT-99617 Level 3 Est. Patient 16:50:00 [facility] Level 3 Est. Patient 17:11:32 SPEECH AND HEARING CLINIC DIRECTOR Brandie bates MD PhD [facility] CPT-17017 Level 3 Est. Patient 16:31:47 SPEECH AND HEARING CLINIC DIRECTOR Shola Wright [facility] CPT-25758 Level 3 Est. Patient 17:51:10 SPEECH AND HEARING CLINIC DIRECTOR Abhinav Galvan MD [facility] CPT-62002 Level 4 Est. Patient 12:54:56 SPEECH AND HEARING CLINIC DIRECTOR Kalpesh goins MD [facility] CPT-69536 Level 4 Est. Patient 12:53:56 SPEECH AND HEARING CLINIC DIRECTOR Kalpesh goins MD [facility] CPT-79391 Level 3 Est. Patient 17:56:58 CDT Shola Wright [facility] CPT-61928 Level 3 Est. Patient 14:26:20 CDT Janak butcher [facility] CPT-04892 Level 3 Est. Patient 09:38:41 CDT Shola Wright [facility] CPT-54201 Level 3 Est. Patient 14:45:26 CDT Edilberto tiwari DO [facility] CPT-85752 Level 3 Est. Patient 10:51:33 [facility] Level 3 Est. Patient 11:57:55 SPEECH AND HEARING CLINIC DIRECTOR Shola MCGILL [facility] CPT-32768 Level 3 Est. Patient 09:53:33 SPEECH AND HEARING CLINIC DIRECTOR Edilberto tiwari [facility] CPT-17649 Level 3 Est. Patient 14:42:54 SPEECH AND HEARING CLINIC DIRECTOR Abhinav Galvan MD [facility] CPT-36330 Level 3 Est. Patient 15:10:02 CDT Janak butcher [facility] CPT-48272 Level 3 Est. Patient 15:20:20 CDT Theo dennis MD [facility]-14442 Level 2 Est. Patient 14:08:57 CDT Kalpesh goins MD [facility] CPT-99578 Level 3 Est. Patient 13:56:19 CDT Abdirahman Rios MD [facility] CPT-35480 Level 3 Est. Patient 13:59:37 CDT Abdirahman Rios MD [facility] CPT-10863 Level 2 Est. Patient 14:44:59 CDT Kalpesh goins MD [facility] CPT-23682 Level 3 Est. Patient 06:06:23 CDT Edilberto tiwari [facility] CPT-68997 Level 3 Est. Patient 15:23:54 CDT Abdirahman Rios MD [facility] CPT-18305 Level 3 Est. Patient 15:43:49 CDT Abdirahman Rios MD [facility] CPT-98081 Level 3 Est. Patient 12:46:47 SPEECH AND HEARING CLINIC DIRECTOR Abdirahman Rios MD [facility] CPT-62252 Level 3 Est. Patient 08:13:35 SPEECH AND HEARING CLINIC DIRECTOR Abdirahman Rios MD [facility] CPT-05058 Level 2 Est. Patient 09:36:42 SPEECH AND HEARING CLINIC DIRECTOR Abdirahman Rios MD [facility] CPT-10994 Level 3 Est. Patient 10:56:43 CDT Abdirahman Rios MD [facility] CPT-81892 Level 3 Est. Patient 18:24:52 CDT Abdirahman Rios MD [facility] CPT-64373 Level 3 Est. Patient 13:27:22 CDT Abdirahman Rios MD [facility] Procedures Code Procedure Name Date Entry Date Standard Desc ription CPT-J0696 Rocephin 1000 mg (Ceftriaxone) 17:22:33 SPEECH AND HEARING CLINIC DIRECTOR CPT-40732 Postop F/U Visit 18:41:07 SPEECH AND HEARING CLINIC DIRECTOR CPT-68083 Postop F/U Visit 08:19:08 SPEECH AND HEARING CLINIC DIRECTOR CPT-79691 Immunization Single Admin 16:41:53 CDT 2013 CPT-96801 Fluzone Quadrivalent Intramuscular Suspe nsion 0.5 ML 16:41:53 CDT CPT-OV Office Visit 16:39:18 CDT CPT-OV Office Visit 16:16:36 CDT CPT-OV Office Visit 15:34:48 CDT CPT-16407 Postop F/U Visit 14:50:12 CDT CPT-94103 Postop F/U Visit 14:41:10 CDT CPT-95181 Venipuncture Draw Fee 11:38:04 SPEECH AND HEARING CLINIC DIRECTOR CPT-06604 Postop F/U Visit 19:02:59 SPEECH AND HEARING CLINIC DIRECTOR CPT-65406 Postop F/U Visit 12:04:54 SPEECH AND HEARING CLINIC DIRECTOR CPT-76679 Administration single or combination vac cine inc oral 15:56:43 CDT CPT-17048 Influenza split virus > age 3 15:56:43 CDT CPT-11833 Hand comp min 3V 14:25:19 CDT CPT-22699 Postop F/U Visit 21:40:51 CDT CPT-30672 Postop F/U Visit 10:58:43 CDT CPT-71646 Administration single or combination vac cine inc oral 12:33:54 SPEECH AND HEARING CLINIC DIRECTOR CPT-89602 Influenza Preservative Free split virus >age 3 12:33:54 SPEECH AND HEARING CLINIC DIRECTOR CPT-31953 Administration single or combination vac cine inc oral 09:30:51 CDT CPT-62797 Influenza split virus > age 3 09:30:51 CDT CPT-53075 Postop F/U Visit 15:14:53 CDT CPT-49150 Postop F/U Visit 13:50:14 CDT CPT-85141 Postop F/U Visit 13:34:52 CDT CPT-OV Office Visit 16:55:03 CDT CPT-92630 [place] of cervix w bx ECC 13:32:50 CDT 10/19 CPT-J1885 Toradol 60 mg (Ketorolac) 15:31:59 CDT 2011 CPT-J1885 Toradol 60 mg (Ketorolac) 15:23:54 CDT 2011 CPT-70116 Visit 11:34:37 SPEECH AND HEARING CLINIC DIRECTOR CPT-91038 Visit 10:52:39 SPEECH AND HEARING CLINIC DIRECTOR CPT-61228 Visit 10:12:02 SPEECH AND HEARING CLINIC DIRECTOR CPT-75956 Visit 11:22:43 SPEECH AND HEARING CLINIC DIRECTOR CPT-86384 Visit 11:24:12 SPEECH AND HEARING CLINIC DIRECTOR CPT-98366 Visit 10:47:05 SPEECH AND HEARING [facility]INIC DIRECTOR CPT-OV Office Visit 10:26:16 SPEECH AND HEARING CLINIC DIRECTOR CPT-OV Office Visit 15:34:31 SPEECH AND HEARING CLINIC DIRECTOR CPT-72075 Visit 10:42:08 SPEECH AND HEARING CLINIC DIRECTOR CPT-67913 Visit 10:52:45 SPEECH AND HEARING CLINIC DIRECTOR CPT-000 Give Appropriate Flu Vaccine 16:56:41 CDT 2 CPT-68725 Administration single or combination vac cine inc oral 10:33:21 CDT CPT-77056 Influenza split virus > age 3 10:33:21 CDT [id number] Visit 13:23:09 CDT CPT-81683 Visit 18:24:52 CDT CPT-10081 Son[facility] OB comp > 14 weeks 12:07:49 CDT 04/07
--- OUTSIDE RECORDS SUMMARY | 2020-01-18 16:53 | XMS REPORT | Clinical Summary ---
[...] 1 every 4 hours as needed OXYCODONE-ACETAMINOPHEN [id number] Active Kalpesh Dong MD Active PROAIR HFA 108 (90 BASE) MCG/ACT AERS 2 puff q 4-6 hrs PRN 01/24 ALBUTEROL SULFATE 50536053842 No Longer Active Kalpesh Dong MD Active ALPRAZOLAM 0.5 MG TABS 1 po BID PRN Anxiety ALPRA ZOLAM 92766765760 Active Abdirahman Rios MD Active EMLA 2.5-2.5 % EXT CREA apply to skin lesion q 6 hours, prn LIDOCAINE-PRILOCAINE 44577658410 Active Hira Moser APRN Active CYCLOBENZAPRINE HCL 10 MG TABS 1 tablet by mouth three times daily as needed for muscle spasm/pain CYCLOBENZAPRINE HCL 29693570232 Active Abdirahman Rios MD Active PREDNISONE 20 MG TAB 2 tabs daily for 3 days, 1 t ab daily for 3 days, 1/2 tab daily for 2 days PREDNISONE 92155481145 No Longer Active Abdirahman Rios MD Active KEFLEX 500 MG CAP 1 po qid CEPHALEXIN 687677032 20 No Longer Active Kalpesh Dong MD Active PERCOCET 5-325 MG TAB 1 every 6 hours as needed OXYCODONE-ACETAMINOPHEN 92225441491 No Longer Active Shola MCGILL Active LC-5 LIDOCAINE 5 % CREA apply 1 time daily to affected area 2013 LIDOCAINE (ANORECTAL) 13093342541 No Longer Active Hira muniz APRN Active HYDROCODONE-ACETAMINOPHEN 5-325 MG TABS 2 tablets by m outh every 8 hours as needed for pain HYDROCODONE-ACETAMINOPHEN 63130447270 Acti ve Abdirahman Rios MD Active HYDROCODONE-ACETAMINOPHEN 10-325 MG TABS 1 by mouth ev chaka 8 hours as needed for pain HYDROCODONE-ACETAMINOPHEN 85698413962 No Longer Active Hira Moser APRN Active LORATADINE 10 MG TABS 1 tablet by mouth daily L ORATADINE 23154569834 No Longer Active Hira Moser APRN Active DIFLUCAN 150 MG TAB 1 qODay x 2 doses FLUCONAZO LE 84273630169 No Longer Active Jillina Joyzell WELDING ENGINEER Active CYCLOBENZAPRINE HCL 10 MG TABS 1/2 - 1 tab PO tid PRN back p ain, muscle spasm CYCLOBENZAPRINE HCL 80388322906 No Longer Active Karen herson Frazell WELDING ENGINEER Active AUGMENTIN 875-125 MG TAB 1 tab by mouth twice daily with food 20 22/05/07 AMOXICILLIN-POT CLAVULANATE 15235856152 No Longer Active Loida Rios MD Active MOBIC 15 MG TABS 1 tab daily MELOXICAM 700560640 14 No Longer Active Abdirahman Rios MD Active PERCOCET 7.5-325 MG TABS 1 PO tid PRN pain OXYCODONE-ACETAMINOPHEN 00329986925 No Longer Active Abdirahman Rios MD Active LIDODERM 5 % PTCH One patch to painful area HI N. On for 12 hrs, off for 12 hrs. LIDOCAINE 97259363711 No Longer Active Abdirahman Rios MD Active PERCOCET 7.5-325 MG TABS 1 PO q 8 hrs PRN pain OXYCODONE-ACETAMINOPHEN 92257735517 No Longer Active Shola MCGILL Active HYDROCODONE-ACETAMINOPHEN 7.5-325 MG TABS 1 by mouth e very 6 hours as needed for pain HYDROCODONE-ACETAMINOPHEN 38737316896 No Longer Active Good Julian MD Active CLINDAMYCIN HCL 300 MG CAPS 1 po QID x 7 days CLINDAMYCIN HCL 06077730330 No Longer Active Abdirahman Rios MD Activ e BACTRIM DS 800-160 MG TABS 1 po BID x 7 days 5 SULFAMETHOXAZOLE-TRIMETHOPRIM 09840367756 No Longer Active Abdirahman Rios MD Active ENDOCET 10-325 MG TABS 1 q 6 hr prn OXYCODONE-ACETAMINOPHEN 43980585837 No Longer Active Abdirahman Rios MD Active IBUPROFEN 800 MG TABS 1 tid prn IBUPROFEN 189770 60723 No Longer Active Abdirahman Rios MD Active BACTRIM DS 800-160 MG TABS by mouth twice a day 11/05 SULFAMETHOXAZOLE-TRIMETHOPRIM 63165515252 No Longer Active Good Julian MD Active HYDROCODONE-ACETAMINOPHEN 7.5-325 MG TABS 1 four times a day as needed for pain HYDROCODONE-ACETAMINOPHEN 85385848236 No Longer Activ e Good Julian MD Active KEFLEX 500 MG CAP 1 tab po tid CEPHALEXIN 711263 96384 No Longer Active Matthewllina Shanti RIVAS Active IBUPROFEN 800 MG TAB 1 pill three times daily as needed for pain IBUPROFEN 51900364306 No Longer Active Kalpesh Dong MD Active PROMETHAZINE-CODEINE 6.25-10 MG/5ML SYRP 1 tsp every 6 hrs prn c ough PROMETHAZINE-CODEINE 93059077421 No Longer Active Kalpesh Carr Active HYDROCODONE-ACETAMINOPHEN 5-325 MG TABS 1 tab by mouth every 6 hours as needed HYDROCODONE-ACETAMINOPHEN 32565972859 No Longer Activ e Shola MCGILL Active CEPHALEXIN 500 MG CAPS 1 PO bid x 7 days CEPHAL EXIN 21748014919 No Longer Active Shola MCGILL Active BACTRIM DS 800-160 MG TAB 1 tab by mouth twice daily 2 TRIMETHOPRIM-SULFAMETHOXAZOLE 67948460720 No Longer Active Kalpesh Dong MD Active HYDROCODONE-ACETAMINOPHEN 5-325 MG TABS 1 PO tid PRN pain 5 HYDROCODONE-ACETAMINOPHEN 59663671437 No Longer Active Abhinav Galvan MD Active IMPLANON 68 MG IMPL IMPLANTED IN LEFT ARM ETONO GESTREL 27445497414 No Longer Active Jillina Shanti ANDRADEN Active AMOXICILLIN 500 MG TABS 2 tabs PO bid x 10 d AM OXICILLIN 33146095122 No Longer Active Kalpesh Dong MD Active LEVAQUIN 500 MG TABS 1 PO q day x 7 days LEVOFL OXACIN 85668561291 No Longer Active Shola MCGILL Active FIORICET 50-325-40 MG TABS 2 PO q 8 hrs PRN FOSTER [id number] Active Abdirahman Rios MD Active AMITRIPTYLINE HCL 25 MG TAB 1 tab by mouth daily 60 minutes before bedtime AMITRIPTYLINE HCL 38743499407 No Longer Active Shola MCGILL Active LORTAB 5 5-500 MG TABS 1/2 to 1 tablet by mouth go ry 6 hours as needed for pain HYDROCODONE-ACETAMINOPHEN 77113810307 No Longer Active Shola MCGILL Active CEPHALEXIN 500 MG TABS Take one by mouth four times daily, morning, noon, early evening and bedtime. CEPHALEXIN 18525159621 No Long er Active Hira Moser APRN Active TYLENOL/CODEINE #3 300-30 MG TAB 1-2 po q6hr PRN Pain ACETAMINOPHEN-CODEINE 45215253138 No Longer Active Edilberto Marino DO Active PRISTIQ 50 MG [id number] 1 po qd DESVENLAFAXI NE SUCCINATE 60444585047 No Longer Active Edilberto Marino DO Active PENICILLIN V POTASSIUM 500 MG TAB 1 four times a day 2 PENICILLIN V POTASSIUM 36294778487 No Longer Active Edilberto Marino DO Active DOXYCYCLINE HYCLATE 100 MG CAPS Take one (1) tablet by mouth twice a day DOXYCYCLINE HYCLATE 41387910189 No Longer Active Ronnie Galvan MD Active HYDROCODONE-ACETAMINOPHEN 5-325 MG TABS 1 po q 6hr PRN Pain 2011 HYDROCODONE-ACETAMINOPHEN 16465165201 No Longer Active Patri joan Lock RN Active BACTRIM DS 800-160 MG TAB 1 tab by mouth twice daily 2 TRIMETHOPRIM-SULFAMETHOXAZOLE 09169510514 No Longer Active Kalpesh Dong MD Active LORTAB 5 5-500 MG TABS 1/2 to 1 tablet by mouth go ry 4 hours as needed for pain HYDROCODONE-ACETAMINOPHEN 67286618518 No Longer Active Kalpesh Dong MD Active GENERESS FE 0.8-25 MG-MCG CHEW Take one by mouth daily NORETHIN-ETH ESTRADIOL-FE 10741547274 No Longer Active Kalpesh Dong MD Active HYDROCODONE-ACETAMINOPHEN 7.5-500 MG TABS 1-2 every 4 hours as needed HYDROCODONE-ACETAMINOPHEN 54546623451 No Longer Activ e Kalpesh Dong MD Active FERROUS SULFATE 325 (65 FE) MG TABS 1 tablet by mouth twice yung y FERROUS SULFATE 27561139204 No Longer Active Kalpesh Dong MD Active IBUPROFEN 600 MG TAB 1 po q6-8hr PRN IBUPROFEN 61929629177 No Longer Active Kalpesh Dong MD Active SPIRONOLACTONE 25 MG TAB 1 tablet by mouth daily 01/22 SPIRONOLACTONE 42574837239 No Longer Active Kalpesh Dong MD Acti ve HYDROCODONE-ACETAMINOPHEN 7.5-325 MG TABS 1 po QID PRN Pain 2011 HYDROCODONE-ACETAMINOPHEN 94009653393 No Longer Active Kalpesh Dong MD Active CLINDAMYCIN HCL 300 MG CAPS 1 po q6hr x 7 days CLINDAMYCIN HCL 39012214383 No Longer Active Edilberto Marino DO Active PREDNISONE 20 MG TAB 2 tabs daily for 4 days, 1 t ab daily for 4 days, 1/2 tab daily for 4 days PREDNISONE 23550722372 No Longer Active Edilberto Marino DO Active PERCOCET 5-325 MG TABS 1 tablet by mouth every 6 hours as ne eded for pain OXYCODONE-ACETAMINOPHEN 76862536556 No Longer Active Abdirahman Rios MD Active VITAMINS TABS Take one by mouth daily MV & MIN W/FE-FA TABS 13782552075 No Longer Active Abdirahman Rios MD Active LUIS 3-0.02 MG TABS 1 tablet by mouth daily as directed DROSPIRENONE-ETHINYL ESTRADIOL 83202836943 No Longer Active Abdirahman Rios MD Active LORATADINE 10 MG TABS 1 tablet by mouth daily L ORATADINE 34054918955 No Longer Active Kalpesh Dong MD Active HYDROCODONE-ACETAMINOPHEN 5-325 MG TABS 1 po q 6hr PRN Pain 2010 HYDROCODONE-ACETAMINOPHEN 98515573490 No Longer Active Edilberto Marino DO Active BACTRIM DS 800-160 MG TAB 1 tab by mouth twice daily 2 TRIMETHOPRIM-SULFAMETHOXAZOLE 43794962297 No Longer Active Abdirahman Rios MD Active 28-0.8 MG TABS Take one by mouth daily 09/20 VIT-FE FUMARATE-FA 63514628531 No Longer Active Abdirahman Rios MD Active CIPRO 500 MG TAB 1 tablet by mouth twice daily CIPROFLOXACIN HCL 12333434208 No Longer Active Abdirahman Rios MD Active BENADRYL 25 MG CAP 1 po q8hr PRN Congestion DIPHENHYDRAMINE HCL 93103246922 No Longer Active Abdirahman Rios MD Active ZOLOFT 50 MG TAB 1 po qd SERTRALINE HCL 808972 72374 No Longer Active Abdirahman Rios MD Active AMOXICILLIN 875 MG TABS 1 tab by mouth twice daily 201 08/09/13 AMOXICILLIN 42580045550 No Longer Active Abdirahman Rios MD Activ e AMOXICILLIN 875 MG TABS 1 tab by mouth twice daily 201 07/19/27 AMOXICILLIN 37842297271 No Longer Active Abdirahman Rios MD Activ e BACTRIM DS 800-160 MG TAB 2 tab by mouth twice daily 2 TRIMETHOPRIM-SULFAMETHOXAZOLE 64483172596 No Longer Active Abdirahman Rios MD Active KEFLEX 500 MG CAP 1 po tid x 10 days CEPHALEXIN 55311579543 No Longer Active Abdirahman Rios MD Active AMOXICILLIN 875 MG TABS 1 tab by mouth twice daily 201 07/18/07 AMOXICILLIN 16670227553 No Longer Active Abdirahman Rios MD Activ e BACTRIM DS 800-160 MG TAB 2 tab by mouth twice daily 2 BACTRIM DS 800-160 MG TAB TRIMETHOPRIM-SULFAMETHOXAZOLE Inactive ZOLOFT 50 MG TAB 1 po qd ZOLOFT 50 MG TAB 3129 41 SERTRALINE HCL Inactive BENADRYL 25 MG CAP 1 po q8hr PRN Congestion BENADRYL 25 MG CAP 8998644 DIPHENHYDRAMINE HCL Inactive 28-0.8 MG TABS Take one by mouth daily 09/20 28-0.8 MG TABS VIT-FE FUMARATE-FA Inactive HYDROCODONE-ACETAMINOPHEN 5-325 MG TABS 1 po q 6hr PRN Pain 2010 HYDROCODONE-ACETAMINOPHEN 5-325 MG TABS 254530 HYDROCODONE-ACETAMINOPHEN Inactive LORATADINE 10 MG TABS 1 tablet by mouth daily LORATADINE 10 MG TABS 730035 LORATADINE Inactive LUIS 3-0.02 MG TABS 1 tablet by mouth daily as directed LUIS 3-0.02 MG TABS DROSPIRENONE-ETHINYL ESTRADIOL Inactive VITAMINS TABS Take one by mouth daily VITAMINS TABS MV & MIN W/FE-FA TABS Inactive PERCOCET 5-325 MG TABS 1 tablet by mouth every 6 hours as ne eded for pain PERCOCET 5-325 MG TABS 4674436 OXYCODONE-ACETAMIN OPHEN Inactive PREDNISONE 20 MG TAB 2 tabs daily for 4 days, 1 t ab daily for 4 days, 1/2 tab daily for 4 days PREDNISONE 20 MG TAB 069550 PREDNISON E Inactive CLINDAMYCIN HCL 300 MG CAPS 1 po q6hr x 7 days CLINDAMYCIN HCL 300 MG CAPS 771126 CLINDAMYCIN HCL Inactive HYDROCODONE-ACETAMINOPHEN 7.5-325 MG TABS 1 po QID PRN Pain 2011 HYDROCODONE-ACETAMINOPHEN 7.5-325 MG TABS 656974 HYDROCODONE-ACETAMINOPHEN Inactive SPIRONOLACTONE 25 MG TAB 1 tablet by mouth daily 01/22 SPIRONOLACTONE 25 MG TAB 057015 SPIRONOLACTONE Inactive IBUPROFEN 600 MG TAB 1 po q6-8hr PRN IBUPROFEN 600 MG TAB 712555 IBUPROFEN Inactive FERROUS SULFATE 325 (65 FE) MG TABS 1 tablet by mouth twice yung y FERROUS SULFATE 325 (65 FE) MG TABS 348618 FERROUS SULF ATE Inactive HYDROCODONE-ACETAMINOPHEN 7.5-500 MG [...] PRN Pain 2011 HYDROCODONE-ACETAMINOPHEN 5-325 MG TABS 375960 HYDROCODONE-ACETAMINOPHEN Inactive DOXYCYCLINE HYCLATE 100 MG CAPS Take one (1) tablet by mouth twice a day DOXYCYCLINE HYCLATE 100 MG CAPS 568931 DOXYCYCLINE HYCLATE Inactive PENICILLIN V POTASSIUM 500 MG TAB 1 four times a day 2 PENICILLIN V POTASSIUM 500 MG TAB 564427 PENICILLIN V POTASSIUM [place] ctive PRISTIQ 50 MG [id number] 1 po qd PRISTIQ 50 MG [id number] DESVENLAFAXINE SUCCINATE Inactive TYLENOL/CODEINE #3 300-30 MG TAB 1-2 po q6hr PRN Pain TYLENOL/CODEINE #3 300-30 MG TAB 593848 ACETAMINOPHEN-CODEINE Inact krishna CEPHALEXIN 500 MG TABS Take one by mouth four times daily, morning, noon, early evening and bedtime. CEPHALEXIN 500 MG TABS 825454 CEPHALEXIN Inactive LORTAB 5 5-500 MG TABS 1/2 to 1 tablet by mouth go ry 6 hours as needed for pain LORTAB 5 5-500 MG TABS HYDROCODONE-A CETAMINOPHEN Inactive AMITRIPTYLINE HCL 25 MG TAB 1 tab by mouth daily 60 minutes before bedtime AMITRIPTYLINE HCL 25 MG TAB 356498 AMITRIPTYLINE HCL Inactive AMOXICILLIN 500 MG TABS 2 tabs PO bid x 10 d 7 AMOXICILLIN 500 MG TABS 374876 AMOXICILLIN Inactive IMPLANON 68 MG IMPL IMPLANTED IN LEFT ARM IMPLANON 68 MG IMPL ETONOGESTREL Inactive HYDROCODONE-ACETAMINOPHEN 5-325 MG TABS 1 PO tid PRN pain 5 HYDROCODONE-ACETAMINOPHEN 5-325 MG TABS 056273 HYDROCODONE-ACETAMIN OPHEN Inactive BACTRIM DS 800-160 MG TAB 1 tab by mouth twice daily 2 BACTRIM DS 800-160 MG TAB TRIMETHOPRIM-SULFAMETHOXAZOLE Inac tive CEPHALEXIN 500 MG CAPS 1 PO bid x 7 days CEPHALEXIN 500 MG CAPS 244522 CEPHALEXIN Inactive HYDROCODONE-ACETAMINOPHEN 5-325 MG TABS 1 tab by mouth every 6 hours as needed HYDROCODONE-ACETAMINOPHEN 5-325 MG TABS 371113 HYDROCODONE-ACETAMINOPHEN Inactive PROMETHAZINE-CODEINE 6.25-10 MG/5ML SYRP 1 tsp every 6 hrs prn c ough PROMETHAZINE-CODEINE 6.25-10 MG/5ML SYRP 082666 PROMETH AZINE-CODEINE Inactive IBUPROFEN 800 MG TAB 1 pill three times daily as needed for pain IBUPROFEN 800 MG TAB 429551 IBUPROFEN Inactive KEFLEX 500 MG CAP 1 tab po tid KEFLEX 500 MG CAP 973188 CEPHALEXIN Inactive HYDROCODONE-ACETAMINOPHEN 7.5-325 MG TABS 1 four times a day as needed for pain HYDROCODONE-ACETAMINOPHEN 7.5-325 MG TABS 055429 HYDROCODONE-ACETAMINOPHEN Inactive BACTRIM DS 800-160 MG TABS by mouth twice a day 11/05 BACTRIM DS 800-160 MG TABS SULFAMETHOXAZOLE-TRIMETHOPRIM Inactive IBUPROFEN 800 MG TABS 1 tid prn IBUPROFEN 800 MG TABS 360914 IBUPROFEN Inactive ENDOCET 10-325 MG TABS 1 q 6 hr prn ENDOC ET 10-325 MG TABS 3312073 OXYCODONE-ACETAMINOPHEN Inactive HYDROCODONE-ACETAMINOPHEN 7.5-325 MG TABS 1 by mouth e very 6 hours as needed for pain HYDROCODONE-ACETAMINOPHEN 7.5-325 MG TABS 497163 HYDROCODONE-ACETAMINOPHEN Inactive PERCOCET 7.5-325 MG TABS 1 PO q 8 hrs PRN pain PERCOCET 7.5-325 MG TABS 7636940 OXYCODONE-ACETAMINOPHEN Inactive LIDODERM 5 % PTCH One patch to painful area HI N. On for 12 hrs, off for 12 hrs. LIDODERM 5 % PTCH 3449256 LIDOCAINE Inactiv e PERCOCET 7.5-325 MG TABS 1 PO tid PRN pain PERCOCET 7.5- 325 MG TABS 9193375 OXYCODONE-ACETAMINOPHEN Inactive MOBIC 15 MG TABS 1 tab daily MOBIC 15 MG TABS 15 2695 MELOXICAM Inactive CYCLOBENZAPRINE HCL 10 MG TABS 1/2 - 1 tab PO tid PRN back p ain, muscle spasm CYCLOBENZAPRINE HCL 10 MG TABS 104363 CYCLOBENZA JOSEPH HCL Inactive LORATADINE 10 MG TABS 1 tablet by mouth daily LORATADINE 10 MG TABS 011470 LORATADINE Inactive HYDROCODONE-ACETAMINOPHEN 10-325 MG TABS 1 by mouth ev chaka 8 hours as needed for pain HYDROCODONE-ACETAMINOPHEN 10-325 MG TABS 054276 HYDROCODONE-ACETAMINOPHEN Inactive LC-5 LIDOCAINE 5 % CREA apply 1 time daily to affected area 2013 LC-5 LIDOCAINE 5 % CREA LIDOCAINE (ANORECTAL) In active PERCOCET 5-325 MG TAB 1 every 6 hours as needed PERCOCET 5-325 MG TAB 7573030 OXYCODONE-ACETAMINOPHEN Inactive KEFLEX 500 MG CAP 1 po qid KEFLEX 500 MG CAP 30 9114 CEPHALEXIN Inactive PROAIR HFA 108 (90 BASE) MCG/ACT AERS 2 puff q 4-6 hrs PRN 01/24 PROAIR HFA 108 (90 BASE) MCG/ACT AERS ALBUTEROL SULFATE Inactive AMOXICILLIN 875 MG TABS 1 tab by mouth twice daily 201 07/18/07 AMOXICILLIN 875 MG TABS 079177 AMOXICILLIN Inactive KEFLEX 500 MG CAP 1 po tid x 10 days KEFLEX 500 MG CAP 118477 CEPHALEXIN Inactive AMOXICILLIN 875 MG TABS 1 tab by mouth twice daily 201 07/19/27 AMOXICILLIN 875 MG TABS 321024 AMOXICILLIN Inactive AMOXICILLIN 875 MG TABS 1 tab by mouth twice daily 201 08/09/13 AMOXICILLIN 875 MG TABS 098026 AMOXICILLIN Inactive CIPRO 500 MG TAB 1 tablet by mouth twice daily CIPRO 500 MG TAB 992588 CIPROFLOXACIN HCL Inactive BACTRIM DS 800-160 MG TAB 1 tab by mouth twice daily 2 BACTRIM DS 800-160 MG TAB TRIMETHOPRIM-SULFAMETHOXAZOLE Inac tive LEVAQUIN 500 MG TABS 1 PO q day x 7 days LEVAQUIN 500 MG TABS 245835 LEVOFLOXACIN Inactive CLINDAMYCIN HCL 300 MG CAPS 1 po QID x 7 days CLINDAMYCIN HCL 300 MG CAPS 969618 CLINDAMYCIN HCL Inactive AUGMENTIN 875-125 MG TAB 1 tab by mouth twice daily with food 22/05/07 AUGMENTIN 875-125 MG TAB 589918 AMOXICILLIN-POT [place] Inactive DIFLUCAN 150 MG TAB 1 qODay x 2 doses DIFLUCAN 150 MG TAB 718043 FLUCONAZOLE Inactive PREDNISONE 20 MG TAB 2 tabs daily for 3 days, 1 t ab daily for 3 days, 1/2 tab daily for 2 days PREDNISONE 20 MG TAB 881406 PREDNISON E Inactive Advance Directives Directive Description Start Date PERMISSION TO SHARE Immunizations Vaccine Administration Date Value Standard Alf cription Seasonal influenza vaccine, injectable, containing preservative, for > 3 years old (Afluria, FluLaval, Fluzone, Fluvirin, Fluarix, Agriflu(>= 18 yo)) Fluzone (>3 yrs.) [[id number]] Influenza, seasonal, inject able Seasonal influenza vaccine, injectable, preservative free, for > 3 years old (Afluria, FluLaval, Fluzone, Fluvirin, Fluarix, Agriflu(>= 18 yo)) Fluzone preservative free (>3 yrs.) [[id number]] Influenza, seasonal, injectable, preservative free Seasonal influenza vaccine, injectable, containing preservative, for > 3 years old (Afluria, FluLaval, Fluzone, Fluvirin, Fluarix, Agriflu(>= 18 yo)) Fluzone (>3 yrs.) [[id number]] Influenza, seasonal, inject able Seasonal influenza vaccine, injectable, containing preservative, for > 3 years old (Afluria, FluLaval, Fluzone, Fluvirin, Fluarix, Agriflu(>= 18 yo)) Fluzone (>3 yrs.) [[id number]] Influenza, seasonal, inject able dT (Diphtheria and [...] - 3141-9 237.4 [lb_av] Weigh t Measured Diagnostic Results Date [...] negative Encounters Code Encounter Date Provider Facility CPT-03450 Level 2 Est. Patient 07:49:32 CDT Kalpesh goins MD [facility] CPT-16073 Level 3 New Patient 15:47:11 [employer] Bj huber MD [facility] CPT-89735 Level 4 Est. Patient 14:37:38 [employer] REPA[employer]ER Abdirahman Rios MD [facility] CPT-81069 Level 2 Est. Patient 13:32:17 [employer] REPA[employer] Kalpesh goins MD [facility] CPT-27602 Level 3 Est. Patient 17:32:57 [employer] REPAIRER Edilberto tiwari DO [facility] CPT-49795 Level 3 Est. Patient 17:22:33 [employer] E[employer] REPAIRER Edilberto tiwari [facility] CPT-53925 Level 2 Est. Patient 16:57:09 [employer] REPAIRER Kalpesh goins MD [facility] CPT-63057 Level 3 Est. Patient 14:03:08 [employer] REPAIRER Abdirahman Rios MD [facility] CPT-70484 Level 3 Est. Patient 18:12:34 CDT Shola Wright [facility] CPT-63535 Level 3 Est. Patient 19:34:46 CDT Shola Wright [facility] CPT-80836 Level 3 Est. Patient 14:19:37 CDT Abdirahman Rios MD [facility] CPT-77288 Level 3 Est. Patient 14:11:58 CDT Kalpesh goins MD [facility]-02452 Level 3 Est. Patient 16:50:00 CDT Michelle MERCADO [facility] CPT-48053 Level 3 Est. Patient 17:11:32 [employer] REPAIRER Brandie bates MD PhD [facility] CPT-11494 Level 3 Est. Patient 16:31:47 [employer] REPAIRER Shola Wright [facility] CPT-20765 Level 3 Est. Patient 17:51:10 [employer] REPAIRER Abhinav Galvan MD [facility] CPT-64501 Level 4 Est. Patient 12:54:56 [employer] E[employer] REPAIRER Kalpesh goins MD [facility]-89522 Level 4 Est. 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-15637 Level 3 Est. Patient 17:56:58 CDT Shola Wright [facility] CPT-58557 Level 3 Est. Patient 14:26:20 CDT Janak butcher [facility] CPT-98857 Level 3 Est. Patient 09:38:41 CDT Shola Thao Adriana [facility] CPT-46104 Level 3 Est. Patient 14:45:26 CDT Edilberto tiwari [facility] CPT-91982 Level 3 Est. Patient 10:51:33 CD[facility] Level 3 Est. Patient 11:57:55 [employer] REPAIRER Shola Thao Adriana [facility] CPT-55863 Level 3 Est. Patient 09:53:33 [employer]LECTRON[employer] REPAIRER Edilberto tiwari [facility] CPT-66912 Level 3 Est. Patient 14:42:54 [employer] REPAIRER Abhinav aGlvan MD [facility] CPT-05275 Level 3 Est. Patient 15:10:02 CDT Janak butcher [facility] CPT-56413 Level 3 Est. Patient 15:20:20 CDT Theo dennis MD [facility] CPT-13691 Level 2 Est. Patient 14:08:57 CDT Kalpesh goins MD [facility] CPT-96967 Level 3 Est. Patient 13:56:19 CDT Abdirahman Rios MD [facility] CPT-88950 Level 3 Est. Patient 13:59:37 CDT Abdirahman Rios MD [facility] CPT-49580 Level 2 Est. Patient 14:44:59 CDT Kalpesh goins MD [facility] CPT-51589 Level 3 Est. Patient 06:06:23 CDT Edilberto tiwari [facility] CPT-46377 Level 3 Est. Patient 15:23:54 CDT Abdirahman Rios MD [facility] CPT-92682 Level 3 Est. Patient 15:43:49 CDT Abdirahman Rios MD [facility] CPT-78388 Level 3 Est. Patient 12:46:47 [employer] REPA[employer]ER Abdirahman Rios MD [facility] CPT-35698 Level 3 Est. Patient 08:13:35 [employer] REPAIRER Abdirahman Rios MD [facility] CPT-62529 Level 2 Est. Patient 09:36:42 [employer] REPAIRER Abdirahman Rios MD [facility] CPT-30502 Level 3 Est. Patient 10:56:43 CDT Abdirahman Rios MD [facility] CPT-53214 Level 3 Est. Patient 18:24:52 CDT Abdirahman Rios MD [facility] CPT-83811 Level 3 Est. Patient 13:27:22 CDT Abdirahman Rios MD [facility] Procedures Code Procedure Name Date Entry Date Standard Desc ription CPT-40155 Postop F/U Visit 11:29:00 [employer] REPA[employer] CPT-J0696 Rocephin 1000 mg (Ceftriaxone) 17:22:33 [employer] REPA[employer] CPT-20292 Postop F/U Visit 18:41:07 [employer] REPA[employer] CPT-49837 Postop F/U Visit 08:19:08 [employer] REPA[employer] CPT-53002 Immunization Single Admin 16:41:53 CDT 2013 CPT-51087 Fluzone Quadrivalent Intramuscular Suspe nsion 0.5 ML 16:41:53 CDT CPT-OV Office Visit 16:39:18 CDT CPT-OV Office Visit 16:16:36 CDT CPT-OV Office Visit 15:34:48 CDT CPT-46704 Postop F/U Visit 14:50:12 CDT CPT-21217 Postop F/U Visit 14:41:10 CDT CPT-94162 Venipuncture Draw Fee 11:38:04 [employer] REPA[employer] CPT-54934 Postop F/U Visit 19:02:59 [employer] REPA[employer]ER CPT-70792 Postop F/U Visit 12:04:54 [employer] REPA[employer]ER CPT-35464 Administration single or combination vac cine inc oral 15:56:43 CDT CPT-11782 Influenza split virus > age 3 15:56:43 CDT CPT-01190 Hand comp min 3V 14:25:19 CDT CPT-93933 Postop F/U Visit 21:40:51 CDT CPT-15404 Postop F/U Visit 10:58:43 CDT CPT-01040 Administration single or combination vac cine inc oral 12:33:54 [employer] REPAIRER CPT-76648 Influenza Preservative Free split virus >age 3 12:33:54 [employer] REPA[employer]ER CPT-71448 Administration single or combination vac cine inc oral 09:30:51 CDT CPT-72818 Influenza split virus > age 3 09:30:51 CDT CPT-58925 Postop F/U Visit 15:14:53 CDT CPT-56390 Postop F/U Visit 13:50:14 CDT CPT-59564 Postop F/U Visit 13:34:52 CDT CPT-OV Office Visit 16:55:03 CDT CPT-19499 [place] of cervix w bx ECC 13:32:50 CDT 10/19 CPT-J1885 Toradol 60 mg (Ketorolac) 15:31:59 CDT 2011 CPT-J1885 Toradol 60 mg (Ketorolac) 15:23:54 CDT 2011 CPT-84980 Visit 11:34:37 [employer] CPT-06031 Visit 10:52:39 [employer] CPT-07641 Visit 10:12:02 [employer] CPT-38650 Visit 11:22:43 [employer] CPT-74106 Visit 11:24:12 [employer] CPT-02594 Visit 10:47:05 [employer] CPT-OV Office Visit 10:26:16 [employer] CPT-OV Office Visit 15:34:31 [employer] CPT-19478 Visit 10:42:08 [employer] CPT-29430 Visit 10:52:45 [employer] CPT-000 Give Appropriate Flu Vaccine 16:56:41 CDT 2 CPT-67976 Administration single or combination vac cine inc oral 10:33:21 CDT CPT-12387 Influenza split virus > age 3 10:33:21 CDT CPT-77293 Visit 13:23:09 CDT CPT-50865 Visit 18:24:52 CDT CPT-70884 Sono OB comp > 14 weeks 12:07:49 CDT 04/07
--- OUTSIDE RECORDS SUMMARY | 2020-01-18 16:54 | XMS REPORT ---
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 Name Role Phone CADE PRADO Unavailable PROBLEMS Type Condition ICD9-CM Code [id number] Code Onset Dates Condition S tatus SNOMED Code Problem Pain at surgical incision R20.8 Acti ve 60875624 Problem Interstitial cystitis N30.10 Active 980419601 Problem Ingrown left big toenail L60.0 Activ e 805441103 Problem Other chronic pain G89.29 Active 8 9674070 Problem Encounter for immunization Z23 Act krishna [id number] Problem Pilonidal cyst L05.91 Active 29328 008 Problem Ulcer L98.499 Active [id number] ALLERGIES Unknown Allergies SOCIAL HISTORY No smoking Hx information available PLAN OF CARE VITAL SIGNS MEDICATIONS Unknown Medications RESULTS No Results PROCEDURES No Known procedures IMMUNIZATIONS No Known Immunizations
--- OUTSIDE RECORDS SUMMARY | 2020-01-18 16:54 | XMS REPORT ---
Author Author Jrei SHAVER Organization [facility] Address [address] [place] [address] Care Team Providers Care Vocational Training Director Name Role Phone MARY SHAVER Unavailable PROBLEMS Type Condition ICD9-CM Code [id number] Code Onset Dates Condition S tatus SNOMED Code Assessment Post-op pain G89.18 Mar, Active 213 412100 Assessment Postoperative hematoma invol ving genitourinary system following genitourinary procedure N99.820 Mar, Active 4203 0000 Assessment Pilonidal cyst L05.91 Mar, Active 4 6695729 ALLERGIES Substance Reaction Event Type Date Status Tramadol HCl rash Drug Allergy Mar, Active Ketorolac Tromethamine rash Drug Allergy Mar, Activ e Bactrim shortness of breath Drug Allergy Mar, Active Azithromycin shortness of breath Drug Allergy Mar, Active latex rash Non Drug Allergy Mar, Active SOCIAL HISTORY No smoking Hx information available PLAN OF CARE VITAL SIGNS Height 63 in 2016-03-24 Weight 213 lbs 2016-03-24 Heart Rate 74 bpm 2016-03-24 Respiratory Rate 18 2016-03-24 BMI 37.73 kg/m2 2016-03-24 Blood pressure systolic 132 mmHg 2016-03-24 Blood pressure diastolic 92 mmHg 2016-03-24 MEDICATIONS Unknown Medications RESULTS No Results PROCEDURES Procedure Date Ordered Related Diagnosis Body Site Office Visit, New Pt., Level 3 Mar 24, 2016 IMMUNIZATIONS No Known Immunizations
--- OUTSIDE RECORDS SUMMARY | 2020-01-18 16:54 | XMS REPORT ---
Author Author [facility]i [facility]AD[facility] [place] Address [address] [place] [address] Care Team Providers Care Straw Boss Name Role Phone CADE PRADO Unavailable PROBLEMS Type Condition ICD9-CM Code [id number] Code Onset Dates Condition S tatus SNOMED Code Problem Pain at surgical incision R20.8 Acti ve 50609406 Problem Interstitial cystitis N30.10 Active 518712246 Problem Ingrown left big toenail L60.0 Activ e 417284632 Problem Other chronic pain G89.29 Active 8 2263494 Problem Encounter for immunization Z23 Act krishna 328240150 Problem Pilonidal cyst L05.91 Active 77124 008 Problem Ulcer L98.499 Active 285886439 ALLERGIES Unknown Allergies SOCIAL HISTORY No smoking Hx information available PLAN OF CARE VITAL SIGNS MEDICATIONS Unknown Medications RESULTS No Results PROCEDURES No Known procedures IMMUNIZATIONS No Known Immunizations
--- OUTSIDE RECORDS SUMMARY | 2020-01-18 16:54 | XMS REPORT ---
Author Author Jeri PRADO Organization [facility] Address [address] [place] [address] Care Team Providers Care Testing Analyst Name Role Phone CADE PRADO Unavailable PROBLEMS Type Condition ICD9-CM Code [id number] Code Onset Dates Condition S tatus SNOMED Code Problem Pain at surgical incision R20.8 Acti ve 57402119 Problem Interstitial cystitis N30.10 Active 873746245 Problem Ingrown left big toenail L60.0 Activ e 420037641 Problem Other chronic pain G89.29 Active 8 8665046 Problem Encounter for immunization Z23 Act krishna 906951507 Problem Pilonidal cyst L05.91 Active 39672 008 Problem Ulcer L98.499 Active 288397968 ALLERGIES No Information SOCIAL HISTORY Never Assessed PLAN OF CARE VITAL SIGNS MEDICATIONS Unknown Medications RESULTS Name Result Date Reference Range MRI : Lower Ext other than Joint w/o 2016-08-17 CT Scan : Angio Low Ext w/o & w/ Contrast 10 ESR/SED RATE Please note Request Problem Request Problem Request Problem Sedimentation Rate-[facility] 2016-08-18 Request Problem Please note Request Problem Sodium, Serum Potassium, Serum Chloride, Serum Carbon Dioxide, Total Ambig Abbrev [facility] Default BUN Creatinine, Serum BUN/Creatinine Ratio eGFR If NonAfricn Am eGFR If Africn Am Glucose, Serum Calcium, Serum PROCEDURES Procedure Date Ordered Result Body Site LAB NOT BILLED BY [facility] Aug 17, 2016 IMMUNIZATIONS No Known Immunizations MEDICAL (GENERAL) HISTORY [...]
--- OUTSIDE RECORDS SUMMARY | 2020-01-18 16:54 | XMS REPORT | Clinical Summary ---
Author Author Admin, Jeri Rashid Organization [facility] Address Unknown Phone Unavailable Allergies, [...] therapeutic drug monito ring AMENORRHEA 626.0 Resolved Godo Julian MD Absence of menstruation AFTERCARE FLW [...] sinusitis, unspecified Hidradenitis 705.83 Active Hira Moser [employer] INTERN Hidradenitis AFTERCARE FOLLOW SURGERY SKIN&SUBCUT TISSUE NEC V58.77 07/28 Active Kalpesh Dong MD Aftercare following surgery of the skin and subcutaneous tissue, NEC Impetigo 684 Active Edilberto Marino DO Im petigo , INCIDENTAL PROBLEM ICD-V22.2 Inacti ve Abdirahman [...] 500 MG CAP 1 po qid CEPHALEXIN [id number] 20 No Longer Active Kalpesh Dong MD Active PERCOCET 5-325 MG TAB 1 every 6 hours as needed OXYCODONE-ACETAMINOPHEN 02731088886 No Longer Active Shola MCGILL Active LC-5 LIDOCAINE 5 % CREA apply 1 time daily to affected area 2013 LIDOCAINE (ANORECTAL) 81203680111 No Longer Active Matthewllina Alessandra garciaell [employer]ATE DEVELOPMENT INTERN Active HYDROCODONE-ACETAMINOPHEN 5-325 MG TABS 2 tablets by m outh every 8 hours as needed for pain HYDROCODONE-ACETAMINOPHEN 46896725636 Acti ve Shola MCGILL Active HYDROCODONE-ACETAMINOPHEN 10-325 MG TABS 1 by mouth ev chaka 8 hours as needed for pain HYDROCODONE-ACETAMINOPHEN 51768210735 No Longer Active Jillina Frazell [employer]ELOPMENT INTERN Active LORATADINE 10 MG TABS 1 tablet by mouth daily L ORATADINE 74546937707 No Longer Active Jillina Frazell [employer] DEVELOPMENT INTERN Active DIFLUCAN 150 MG TAB 1 qODay x 2 doses FLUCONAZO LE 76441872357 No Longer Active Jillina Frazell [employer]ELOPMENT INTERN Active CYCLOBENZAPRINE HCL 10 MG TABS 1/2 - 1 tab PO tid PRN back p ain, muscle spasm CYCLOBENZAPRINE HCL 74194325409 No Longer Active Karen siri Frazell [employer]ATE DEVELOPMENT INTERN Active AUGMENTIN 875-125 MG TAB 1 tab by mouth twice daily with food 20 22/05/07 AMOXICILLIN-POT CLAVULANATE 00250686062 No Longer Active Loida Rios MD Active MOBIC 15 MG TABS 1 tab daily MELOXICAM 443178020 14 No Longer Active Abdirahman Rios MD Active PERCOCET 7.5-325 MG TABS 1 PO tid PRN pain OXYCODONE-ACETAMINOPHEN 62287209951 No Longer Active Abdirahman Rios MD Active LIDODERM 5 % PTCH One patch to painful area LA N. On for 12 hrs, off for 12 hrs. LIDOCAINE 83138201180 No Longer Active Abdirahman Rios MD Active PERCOCET 7.5-325 MG TABS 1 PO q 8 hrs PRN pain OXYCODONE-ACETAMINOPHEN 23918720557 No Longer Active Shola MCGILL Active HYDROCODONE-ACETAMINOPHEN 7.5-325 MG TABS 1 by mouth e very 6 hours as needed for pain HYDROCODONE-ACETAMINOPHEN 33513621264 No Longer Active Good Julian MD Active CLINDAMYCIN HCL 300 MG CAPS 1 po QID x 7 days CLINDAMYCIN HCL 48948884839 No Longer Active Abdirahman Rios MD Activ e BACTRIM DS 800-160 MG TABS 1 po BID x 7 days 5 SULFAMETHOXAZOLE-TRIMETHOPRIM 16730585222 No Longer Active Abdirahman Rios MD Active ENDOCET 10-325 MG TABS 1 q 6 hr prn OXYCODONE-ACETAMINOPHEN 33972473858 No Longer Active Abdirahman Rios MD Active IBUPROFEN 800 MG TABS 1 tid prn IBUPROFEN 222824 60830 No Longer Active Abdirahman Rios MD Active BACTRIM DS 800-160 MG TABS by mouth twice a day 11/05 SULFAMETHOXAZOLE-TRIMETHOPRIM 15068841083 No Longer Active Good Julian MD Active HYDROCODONE-ACETAMINOPHEN 7.5-325 MG TABS 1 four times a day as needed for pain HYDROCODONE-ACETAMINOPHEN 51829348576 No Longer Activ e Good Julian MD Active KEFLEX 500 MG CAP 1 tab po tid CEPHALEXIN 062431 55453 No Longer Active Hira Moser APRN Active IBUPROFEN 800 MG TAB 1 pill three times daily as needed for pain IBUPROFEN 30899781767 No Longer Active Kalpesh Dong MD Active PROMETHAZINE-CODEINE 6.25-10 MG/5ML SYRP 1 tsp every 6 hrs prn c ough PROMETHAZINE-CODEINE 15593346219 No Longer Active Kalpesh Carr Active ALPRAZOLAM 0.5 MG TABS 1 PO bid PRN ALPRAZOLAM 166325 02908 Active Jillina Frazell [employer]ATE DEVELOPMENT INTERN Active HYDROCODONE-ACETAMINOPHEN 5-325 MG TABS 1 tab by mouth every 6 hours as needed HYDROCODONE-ACETAMINOPHEN 77875682337 No Longer Activ e Shola MCGILL Active CEPHALEXIN 500 MG CAPS 1 PO bid x 7 days CEPHAL EXIN 77410286999 No Longer Active Shola MCGILL Active BACTRIM DS 800-160 MG TAB 1 tab by mouth twice daily 2 TRIMETHOPRIM-SULFAMETHOXAZOLE 57524276908 No Longer Active Kalpesh Dong MD Active HYDROCODONE-ACETAMINOPHEN 5-325 MG TABS 1 PO tid PRN pain 5 HYDROCODONE-ACETAMINOPHEN 78836797045 No Longer Active Abhinav Galvan MD Active IMPLANON 68 MG IMPL IMPLANTED IN LEFT ARM ETONO GESTREL 84678696309 No Longer Active Hira Moser [employer] DEVELOPMENT INTERN Active AMOXICILLIN 500 MG TABS 2 tabs PO bid x 10 d AM OXICILLIN 10168942621 No Longer Active Kalpesh Dong MD Active LEVAQUIN 500 MG TABS 1 PO q day x 7 days LEVOFL OXACIN 19533099224 No Longer Active Shola MCGILL Active PROAIR HFA 108 (90 BASE) MCG/ACT AERS 2 puff q 4-6 hrs PRN ALBUTEROL SULFATE 92515533568 Active Edilberto Marino DO Active FIORICET 50-325-40 MG TABS 2 PO q 8 hrs PRN FOSTER [id number] Active Shola MCGILL Active AMITRIPTYLINE HCL 25 MG TAB 1 tab by mouth daily 60 minutes before bedtime AMITRIPTYLINE HCL 07818432730 No Longer Active Shola MCGILL Active LORTAB 5 5-500 MG TABS 1/2 to 1 tablet by mouth go ry 6 hours as needed for pain HYDROCODONE-ACETAMINOPHEN 14728866298 No Longer Active Shola MCGILL Active CEPHALEXIN 500 MG TABS Take one by mouth four times daily, morning, noon, early evening and bedtime. CEPHALEXIN 91337618615 No Long er Active Hira Moser [employer]ELOPMENT INTERN Active TYLENOL/CODEINE #3 300-30 MG TAB 1-2 po q6hr PRN Pain ACETAMINOPHEN-CODEINE 93675599848 No Longer Active Edilberto Marino DO Active PRISTIQ 50 MG [id number]-AOT 1 po qd DESVENLAFAXI NE SUCCINATE 49169207362 No Longer Active Edilberto Marino DO Active PENICILLIN V POTASSIUM 500 MG TAB 1 four times a day 2 PENICILLIN V POTASSIUM 26388181263 No Longer Active Edilberto Marino DO Active DOXYCYCLINE HYCLATE 100 MG CAPS Take one (1) tablet by mouth twice a day DOXYCYCLINE HYCLATE 36173608322 No Longer Active Ronnie Galvan MD Active HYDROCODONE-ACETAMINOPHEN 5-325 MG TABS 1 po q 6hr PRN Pain 2011 HYDROCODONE-ACETAMINOPHEN 07012854229 No Longer Active Jerson Perez RN Active BACTRIM DS 800-160 MG TAB 1 tab by mouth twice daily 2 TRIMETHOPRIM-SULFAMETHOXAZOLE 28090231064 No Longer Active Kalpesh Dong MD Active LORTAB 5 5-500 MG TABS 1/2 to 1 tablet by mouth go ry 4 hours as needed for pain HYDROCODONE-ACETAMINOPHEN 50239268854 No Longer Active Kalpesh Dong MD Active GENERESS FE 0.8-25 MG-MCG CHEW Take one by mouth daily NORETHIN-ETH ESTRADIOL-FE 73014489934 No Longer Active Kalpesh Dong MD Active HYDROCODONE-ACETAMINOPHEN 7.5-500 MG TABS 1-2 every 4 hours as needed HYDROCODONE-ACETAMINOPHEN 79693318996 No Longer Activ e Kalpesh Dong MD Active FERROUS SULFATE 325 (65 FE) MG TABS 1 tablet by mouth twice yung y FERROUS SULFATE 59270224846 No Longer Active Kalpesh Dong MD Active IBUPROFEN 600 MG TAB 1 po q6-8hr PRN IBUPROFEN 95671206082 No Longer Active Kalpesh Dong MD Active SPIRONOLACTONE 25 MG TAB 1 tablet by mouth daily 01/22 SPIRONOLACTONE 81732065603 No Longer Active Kalpesh Dong MD Acti ve HYDROCODONE-ACETAMINOPHEN 7.5-325 MG TABS 1 po QID PRN Pain 2011 HYDROCODONE-ACETAMINOPHEN 82292981856 No Longer Active Kalpesh Dong MD Active CLINDAMYCIN HCL 300 MG CAPS 1 po q6hr x 7 days CLINDAMYCIN HCL 83908817026 No Longer Active Edilberto Marino DO Active PREDNISONE 20 MG TAB 2 tabs daily for 4 days, 1 t ab daily for 4 days, 1/2 tab daily for 4 days PREDNISONE 95662415646 No Longer Active Edilberto Marino DO Active PERCOCET 5-325 MG TABS 1 tablet by mouth every 6 hours as ne eded for pain OXYCODONE-ACETAMINOPHEN 92485899863 No Longer Active Abdirahman Rios MD Active VITAMINS TABS Take one by mouth daily MV & MIN W/FE-FA TABS 15934967565 No Longer Active Abdirahman Rios MD Active LUIS 3-0.02 MG TABS 1 tablet by mouth daily as directed DROSPIRENONE-ETHINYL ESTRADIOL 27363299708 No Longer Active Abdirahman Rios MD Active LORATADINE 10 MG TABS 1 tablet by mouth daily L ORATADINE 19469499595 No Longer Active Kalpesh Dong MD Active HYDROCODONE-ACETAMINOPHEN 5-325 MG TABS 1 po q 6hr PRN Pain 2010 HYDROCODONE-ACETAMINOPHEN 33028283681 No Longer Active Edilberto Marino DO Active BACTRIM DS 800-160 MG TAB 1 tab by mouth twice daily 2 TRIMETHOPRIM-SULFAMETHOXAZOLE 61395009157 No Longer Active Abdirahman Rios MD Active 28-0.8 MG TABS Take one by mouth daily 09/20 VIT-FE FUMARATE-FA 69337935306 No Longer Active Abdirahman Rios MD Active CIPRO 500 MG TAB 1 tablet by mouth twice daily CIPROFLOXACIN HCL 51333610252 No Longer Active Abdirahman Rios MD Active BENADRYL 25 MG CAP 1 po q8hr PRN Congestion DIPHENHYDRAMINE HCL 04069048177 No Longer Active Abdirahman Rios MD Active ZOLOFT 50 MG TAB 1 po qd SERTRALINE HCL 527597 10157 No Longer Active Abdirahman Rios MD Active AMOXICILLIN 875 MG TABS 1 tab by mouth twice daily 201 08/09/13 AMOXICILLIN 53290230631 No Longer Active Abdirahman Rios MD Activ e AMOXICILLIN 875 MG TABS 1 tab by mouth twice daily 201 07/19/27 AMOXICILLIN 72810341359 No Longer Active Abdirahman Rios MD Activ e BACTRIM DS 800-160 MG TAB 2 tab by mouth twice daily 2 TRIMETHOPRIM-SULFAMETHOXAZOLE 42830538785 No Longer Active Abdirahman Rios MD Active KEFLEX 500 MG CAP 1 po tid x 10 days CEPHALEXIN 03652403570 No Longer Active Abdirahman Rios MD Active AMOXICILLIN 875 MG TABS 1 tab by mouth twice daily 201 07/18/07 AMOXICILLIN 78438021086 No Longer Active Abdirahman Rios MD Activ e BACTRIM DS 800-160 MG TAB 2 tab by mouth twice daily 2 BACTRIM DS 800-160 MG TAB TRIMETHOPRIM-SULFAMETHOXAZOLE Inactive ZOLOFT 50 MG TAB 1 po qd ZOLOFT 50 MG TAB 3129 41 SERTRALINE HCL Inactive BENADRYL 25 MG CAP 1 po q8hr PRN Congestion BENADRYL 25 MG CAP 7786198 DIPHENHYDRAMINE HCL Inactive 28-0.8 MG TABS Take one by mouth daily 09/20 28-0.8 MG TABS VIT-FE FUMARATE-FA Inactive HYDROCODONE-ACETAMINOPHEN 5-325 MG TABS 1 po q 6hr PRN Pain 2010 HYDROCODONE-ACETAMINOPHEN 5-325 MG TABS 749499 HYDROCODONE-ACETAMINOPHEN Inactive LORATADINE 10 MG TABS 1 tablet by mouth daily LORATADINE 10 MG TABS 028939 LORATADINE Inactive LUIS 3-0.02 MG TABS 1 tablet by mouth daily as directed LUIS 3-0.02 MG TABS DROSPIRENONE-ETHINYL ESTRADIOL Inactive VITAMINS TABS Take one by mouth daily VITAMINS TABS MV & MIN W/FE-FA TABS Inactive PERCOCET 5-325 MG TABS 1 tablet by mouth every 6 hours as ne eded for pain PERCOCET 5-325 MG TABS 2845752 OXYCODONE-ACETAMIN OPHEN Inactive PREDNISONE 20 MG TAB 2 tabs daily for 4 days, 1 t ab daily for 4 days, 1/2 tab daily for 4 days PREDNISONE 20 MG TAB 518660 PREDNISON E Inactive CLINDAMYCIN HCL 300 MG CAPS 1 po q6hr x 7 days CLINDAMYCIN HCL 300 MG CAPS 636076 CLINDAMYCIN HCL Inactive HYDROCODONE-ACETAMINOPHEN 7.5-325 MG TABS 1 po QID PRN Pain 2011 HYDROCODONE-ACETAMINOPHEN 7.5-325 MG TABS 581872 HYDROCODONE-ACETAMINOPHEN Inactive SPIRONOLACTONE 25 MG TAB 1 tablet by mouth daily 01/22 SPIRONOLACTONE 25 MG TAB 437222 SPIRONOLACTONE Inactive IBUPROFEN 600 MG TAB 1 po q6-8hr PRN IBUPROFEN 600 MG TAB 605927 IBUPROFEN Inactive FERROUS SULFATE 325 (65 FE) MG TABS 1 tablet by mouth twice yung y FERROUS SULFATE 325 (65 FE) MG TABS 156103 FERROUS SULF ATE Inactive HYDROCODONE-ACETAMINOPHEN 7.5-500 MG [...] PRN Pain 2011 HYDROCODONE-ACETAMINOPHEN 5-325 MG TABS 578377 HYDROCODONE-ACETAMINOPHEN Inactive DOXYCYCLINE HYCLATE 100 MG CAPS Take one (1) tablet by mouth twice a day DOXYCYCLINE HYCLATE 100 MG CAPS 919614 DOXYCYCLINE HYCLATE Inactive PENICILLIN V POTASSIUM 500 MG TAB 1 four times a day 2 PENICILLIN V POTASSIUM 500 MG TAB 024787 PENICILLIN V POTASSIUM Siri ctive PRISTIQ 50 MG [id number] 1 po qd PRISTIQ 50 MG [id number] DESVENLAFAXINE SUCCINATE Inactive TYLENOL/CODEINE #3 300-30 MG TAB 1-2 po q6hr PRN Pain TYLENOL/CODEINE #3 300-30 MG TAB 641729 ACETAMINOPHEN-CODEINE Inact krishna CEPHALEXIN 500 MG TABS Take one by mouth four times daily, morning, noon, early evening and bedtime. CEPHALEXIN 500 MG TABS 423219 CEPHALEXIN Inactive LORTAB 5 5-500 MG TABS 1/2 to 1 tablet by mouth go ry 6 hours as needed for pain LORTAB 5 5-500 MG TABS HYDROCODONE-A CETAMINOPHEN Inactive AMITRIPTYLINE HCL 25 MG TAB 1 tab by mouth daily 60 minutes before bedtime AMITRIPTYLINE HCL 25 MG TAB 367129 AMITRIPTYLINE HCL Inactive AMOXICILLIN 500 MG TABS 2 tabs PO bid x 10 d 7 AMOXICILLIN 500 MG TABS 394604 AMOXICILLIN Inactive IMPLANON 68 MG IMPL IMPLANTED IN LEFT ARM IMPLANON 68 MG IMPL ETONOGESTREL Inactive HYDROCODONE-ACETAMINOPHEN 5-325 MG TABS 1 PO tid PRN pain 5 HYDROCODONE-ACETAMINOPHEN 5-325 MG TABS 785336 HYDROCODONE-ACETAMIN OPHEN Inactive BACTRIM DS 800-160 MG TAB 1 tab by mouth twice daily 2 BACTRIM DS 800-160 MG TAB TRIMETHOPRIM-SULFAMETHOXAZOLE Inac tive CEPHALEXIN 500 MG CAPS 1 PO bid x 7 days CEPHALEXIN 500 MG CAPS 259064 CEPHALEXIN Inactive HYDROCODONE-ACETAMINOPHEN 5-325 MG TABS 1 tab by mouth every 6 hours as needed HYDROCODONE-ACETAMINOPHEN 5-325 MG TABS 671310 HYDROCODONE-ACETAMINOPHEN Inactive PROMETHAZINE-CODEINE 6.25-10 MG/5ML SYRP 1 tsp every 6 hrs prn c ough PROMETHAZINE-CODEINE 6.25-10 MG/5ML SYRP 219183 PROMETH AZINE-CODEINE Inactive IBUPROFEN 800 MG TAB 1 pill three times daily as needed for pain IBUPROFEN 800 MG TAB 051932 IBUPROFEN Inactive KEFLEX 500 MG CAP 1 tab po tid KEFLEX 500 MG CAP 255192 CEPHALEXIN Inactive HYDROCODONE-ACETAMINOPHEN 7.5-325 MG TABS 1 four times a day as needed for pain HYDROCODONE-ACETAMINOPHEN 7.5-325 MG TABS 053656 HYDROCODONE-ACETAMINOPHEN Inactive BACTRIM DS 800-160 MG TABS by mouth twice a day 11/05 BACTRIM DS 800-160 MG TABS SULFAMETHOXAZOLE-TRIMETHOPRIM Inactive IBUPROFEN 800 MG TABS 1 tid prn IBUPROFEN 800 MG TABS 925713 IBUPROFEN Inactive ENDOCET 10-325 MG TABS 1 q 6 hr prn ENDOC ET 10-325 MG TABS 2093704 OXYCODONE-ACETAMINOPHEN Inactive HYDROCODONE-ACETAMINOPHEN 7.5-325 MG TABS 1 by mouth e very 6 hours as needed for pain HYDROCODONE-ACETAMINOPHEN 7.5-325 MG TABS 834019 HYDROCODONE-ACETAMINOPHEN Inactive PERCOCET 7.5-325 MG TABS 1 PO q 8 hrs PRN pain PERCOCET 7.5-325 MG TABS 9844105 OXYCODONE-ACETAMINOPHEN Inactive LIDODERM 5 % PTCH One patch to painful area LA N. On for 12 hrs, off for 12 hrs. LIDODERM 5 % PTCH 4950506 LIDOCAINE Inactiv e PERCOCET 7.5-325 MG TABS 1 PO tid PRN pain PERCOCET 7.5- 325 MG TABS 7644789 OXYCODONE-ACETAMINOPHEN Inactive MOBIC 15 MG TABS 1 tab daily MOBIC 15 MG TABS 15 2695 MELOXICAM Inactive CYCLOBENZAPRINE HCL 10 MG TABS 1/2 - 1 tab PO tid PRN back p ain, muscle spasm CYCLOBENZAPRINE HCL 10 MG TABS 121286 CYCLOBENZA JOSEPH HCL Inactive LORATADINE 10 MG TABS 1 tablet by mouth daily LORATADINE 10 MG TABS 196435 LORATADINE Inactive HYDROCODONE-ACETAMINOPHEN 10-325 MG TABS 1 by mouth ev chaka 8 hours as needed for pain HYDROCODONE-ACETAMINOPHEN 10-325 MG TABS 275903 HYDROCODONE-ACETAMINOPHEN Inactive LC-5 LIDOCAINE 5 % CREA apply 1 time daily to affected area 2013 LC-5 LIDOCAINE 5 % CREA LIDOCAINE (ANORECTAL) In active PERCOCET 5-325 MG TAB 1 every 6 hours as needed PERCOCET 5-325 MG TAB 7586029 OXYCODONE-ACETAMINOPHEN Inactive KEFLEX 500 MG CAP 1 po qid KEFLEX 500 MG CAP 30 9114 CEPHALEXIN Inactive AMOXICILLIN 875 MG TABS 1 tab by mouth twice daily 201 07/18/07 AMOXICILLIN 875 MG TABS 415914 AMOXICILLIN Inactive KEFLEX 500 MG CAP 1 po tid x 10 days KEFLEX 500 MG CAP 559577 CEPHALEXIN Inactive AMOXICILLIN 875 MG TABS 1 tab by mouth twice daily 201 07/19/27 AMOXICILLIN 875 MG TABS 186360 AMOXICILLIN Inactive AMOXICILLIN 875 MG TABS 1 tab by mouth twice daily 201 08/09/13 AMOXICILLIN 875 MG TABS 197463 AMOXICILLIN Inactive CIPRO 500 MG TAB 1 tablet by mouth twice daily CIPRO 500 MG TAB 810963 CIPROFLOXACIN HCL Inactive BACTRIM DS 800-160 MG TAB 1 tab by mouth twice daily 2 BACTRIM DS 800-160 MG TAB TRIMETHOPRIM-SULFAMETHOXAZOLE Inac tive LEVAQUIN 500 MG TABS 1 PO q day x 7 days LEVAQUIN 500 MG TABS 610877 LEVOFLOXACIN Inactive CLINDAMYCIN HCL 300 MG CAPS 1 po QID x 7 days CLINDAMYCIN HCL 300 MG CAPS 208193 CLINDAMYCIN HCL Inactive AUGMENTIN 875-125 MG TAB 1 tab by mouth twice daily with food 20 22/05/07 AUGMENTIN 875-125 MG TAB 637749 AMOXICILLIN-POT [place] Inactive DIFLUCAN 150 MG TAB 1 qODay x 2 doses DIFLUCAN 150 MG TAB 084945 FLUCONAZOLE Inactive Advance Directives Directive Description Start Date PERMISSION TO SHARE Immunizations Vaccine Administration Date Value Standard Alf cription Seasonal influenza vaccine, injectable, containing preservative, for > 3 years old (Afluria, FluLaval, Fluzone, Fluvirin, Fluarix, Agriflu(>= 18 yo)) Fluzone (>3 yrs.) [[id number]] Influenza, seasonal, inject able Seasonal influenza vaccine, injectable, preservative free, for > 3 years old (Afluria, FluLaval, Fluzone, Fluvirin, Fluarix, Agriflu(>= 18 yo)) Fluzone preservative free (>3 yrs.) [[id number]] Influenza, seasonal, injectable, preservative free Seasonal influenza vaccine, injectable, containing preservative, for > 3 years old (Afluria, FluLaval, Fluzone, Fluvirin, Fluarix, Agriflu(>= 18 yo)) Fluzone (>3 yrs.) [REG260] Influenza, seasonal, inject able Seasonal influenza vaccine, injectable, containing preservative, for > 3 years old (Afluria, FluLaval, Fluzone, Fluvirin, Fluarix, Agriflu(>= 18 yo)) Fluzone (>3 yrs.) [[id number]] Influenza, seasonal, inject able dT (Diphtheria and [...] ... - Chemistry sodium, serum 140 mmol/L 663-623 7610/02/24 potassium, serum 4.3 mmol/L 3.5-5.2 chloride, serum [...] 4.3-6.0 Lab Report: T3, TOTAL, INSULIN - [employer] ry triiodothyronine (T3), serum 78 ng/dL 76-181 Office Visit: low blood sugars - Chemis try cholesterol, target level 200 mg/dL triglyceride, target level 200 mg/dL HDL cholesterol, serum, target level 35 mg/dL LDL target level 100 mg/dL Encounters Code Encounter Date Provider Facility CPT-06984 Level 2 Est. Patient 13:32:17 SET UP TECHNICIAN Kalpesh goins MD [facility] CPT-86660 Level 3 Est. Patient 17:32:57 SET UP TECHNICIAN Edilberto tiwari [facility] CPT-73644 Level 3 Est. Patient 17:22:33 SET UP TECHNICIAN Edilberto tiwari [facility] CPT-14188 Level 2 Est. Patient 16:57:09 SET UP TECHNICIAN Kalpesh goins MD [facility] CPT-78067 Level 3 Est. Patient 14:03:08 SET UP TECHNICIAN Abdirahman Rios MD [facility] CPT-97121 Level 3 Est. Patient 18:12:34 CDT Shola Wright [facility] [place] CPT-13555 Level 3 Est. Patient 19:34:46 CDT Shola Wright [facility] CPT-91234 Level 3 Est. Patient 14:19:37 CDT Abdirahman Rios MD [facility] CPT-52692 Level 3 Est. Patient 14:11:58 CDT Kalpesh goins MD [facility] CPT-54146 Level 3 Est. Patient 16:50:00 [facility] Level 3 Est. Patient 17:11:32 SET UP TECHNICIAN Brandie bates MD PhD [facility] CPT-53663 Level 3 Est. Patient 16:31:47 SET UP TECHNICIAN Shola Wright [facility] CPT-67028 Level 3 Est. Patient 17:51:10 SET UP TECHNICIAN Abhinav Galvan MD [facility] CPT-97182 Level 4 Est. Patient 12:54:56 SET UP TECHNICIAN Kalpesh goins MD [facility] CPT-74962 Level 4 Est. Patient 12:53:56 SET UP TECHNICIAN Kalpesh goins MD [facility] CPT-64609 Level 3 Est. Patient 17:56:58 CDT Shola Wright [facility] CPT-73167 Level 3 Est. Patient 14:26:20 CDT Janak butcher [facility] CPT-89628 Level 3 Est. Patient 09:38:41 CDT Shola Wright [facility] CPT-19734 Level 3 Est. Patient 14:45:26 CDT Edilberto tiwari DO [facility] CPT-99021 Level 3 Est. Patient 10:51:33 [facility] Level 3 Est. Patient 11:57:55 SET UP TECHNICIAN Shola MCGILL [facility] CPT-54830 Level 3 Est. Patient 09:53:33 SET UP TECHNICIAN Edilberto tiwari [facility] CPT-32130 Level 3 Est. Patient 14:42:54 SET UP TECHNICIAN Abhinav Galvan MD [facility] CPT-55206 Level 3 Est. Patient 15:10:02 CDT Janak butcher [facility] CPT-60388 Level 3 Est. Patient 15:20:20 CDT Theo dennis MD [facility] [place]-78839 Level 2 Est. Patient 14:08:57 CDT Kalpesh goins MD [facility] CPT-76482 Level 3 Est. Patient 13:56:19 CDT Abdirahman Rios MD [facility] CPT-47370 Level 3 Est. Patient 13:59:37 CDT Abdirahman Rios MD [facility] CPT-34634 Level 2 Est. Patient 14:44:59 CDT Kalpesh goins MD [facility] CPT-12866 Level 3 Est. Patient 06:06:23 CDT Edilberto tiwari [facility] CPT-88484 Level 3 Est. Patient 15:23:54 CDT Abdirahman Rios MD [facility] CPT-94751 Level 3 Est. Patient 15:43:49 CDT Abdirahman Rios MD [facility] CPT-39757 Level 3 Est. Patient 12:46:47 SET UP TECHNICIAN Abdirahman Rios MD [facility] CPT-15171 Level 3 Est. Patient 08:13:35 SET UP TECHNICIAN Abdirahman Rios MD [facility] CPT-37960 Level 2 Est. Patient 09:36:42 SET UP TECHNICIAN Abdirahman Rios MD [facility] CPT-23530 Level 3 Est. Patient 10:56:43 CDT Abdirahman Rios MD [facility] CPT-11668 Level 3 Est. Patient 18:24:52 CDT Abdirahman Rios MD [facility] CPT-90459 Level 3 Est. Patient 13:27:22 CDT Abdirahman iRos MD [facility] Procedures Code Procedure Name Date Entry Date Standard Desc ription CPT-J0696 Rocephin 1000 mg (Ceftriaxone) 17:22:33 SET UP TECHNICIAN CPT-90369 Postop F/U Visit 18:41:07 SET UP TECHNICIAN CPT-07741 Postop F/U Visit 08:19:08 SET UP TECHNICIAN CPT-52425 Immunization Single Admin 16:41:53 CDT 2013 CPT-64009 Fluzone Quadrivalent Intramuscular Suspe nsion 0.5 ML 16:41:53 CDT CPT-OV Office Visit 16:39:18 CDT CPT-OV Office Visit 16:16:36 CDT CPT-OV Office Visit 15:34:48 CDT CPT-91327 Postop F/U Visit 14:50:12 CDT CPT-31348 Postop F/U Visit 14:41:10 CDT CPT-86446 Venipuncture Draw Fee 11:38:04 SET UP TECHNICIAN CPT-92680 Postop F/U Visit 19:02:59 SET UP TECHNICIAN CPT-52555 Postop F/U Visit 12:04:54 SET UP TECHNICIAN CPT-91109 Administration single or combination vac cine inc oral 15:56:43 CDT CPT-30092 Influenza split virus > age 3 15:56:43 CDT CPT-70399 Hand comp min 3V 14:25:19 CDT CPT-75461 Postop F/U Visit 21:40:51 CDT CPT-78475 Postop F/U Visit 10:58:43 CDT CPT-77311 Administration single or combination vac cine inc oral 12:33:54 SET UP TECHNICIAN CPT-46505 Influenza Preservative Free split virus >age 3 12:33:54 SET UP TECHNICIAN CPT-18930 Administration single or combination vac cine inc oral 09:30:51 CDT CPT-12192 Influenza split virus > age 3 09:30:51 CDT CPT-44950 Postop F/U Visit 15:14:53 CDT CPT-76692 Postop F/U Visit 13:50:14 CDT CPT-84052 Postop F/U Visit 13:34:52 CDT CPT-OV Office Visit 16:55:03 CDT CPT-08636 [place] of cervix w bx ECC 13:32:50 CDT 10/19 CPT-J1885 Toradol 60 mg (Ketorolac) 15:31:59 CDT 2011 CPT-J1885 Toradol 60 mg (Ketorolac) 15:23:54 CDT 2011 CPT-81362 Visit 11:34:37 SET UP TECHNICIAN CPT-26606 Visit 10:52:39 SET UP TECHNICIAN CPT-81437 Visit 10:12:02 SET UP TECHNICIAN CPT-59283 Visit 11:22:43 SET UP TECHNICIAN CPT-44139 Visit 11:24:12 SET UP TECHNICIAN CPT-42246 Visit 10:47:05 SET UP TECHNICIAN CPT-OV Office Visit 10:26:16 SET UP TECHNICIAN CPT-OV Office Visit 15:34:31 SET UP TECHNICIAN CPT-19107 Visit 10:42:08 SET UP TECHNICIAN CPT-89189 Visit 10:52:45 SET UP TECHNICIAN CPT-000 Give Appropriate Flu Vaccine 16:56:41 CDT 2 CPT-73540 Administration single or combination vac cine inc oral 10:33:21 CDT CPT-41117 Influenza split virus > age 3 10:33:21 CDT CPT-14490 Visit 13:23:09 CDT CPT-29245 Visit 18:24:52 CDT CPT-74823 Sono OB comp > 14 weeks 12:07:49 CDT 04/07
--- OUTSIDE RECORDS SUMMARY | 2020-01-18 16:54 | XMS REPORT ---
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 Machine Operator Name Role Phone JALEEL EMANUEL Unavailable PROBLEMS Type Condition ICD9-CM Code LYS63-FG Code Onset Dates Condition S tatus SNOMED Code Problem Pain at surgical incision R20.8 Acti ve 19974637 Problem Interstitial cystitis N30.10 Active 948998168 Problem Ingrown left big toenail L60.0 Activ e 738530096 Problem Other chronic pain G89.29 Active 8 2224417 Problem Encounter for immunization Z23 Act krishna 810353261 Problem Pilonidal cyst L05.91 Active 56410 008 Problem Ulcer L98.499 Active 311743313 ALLERGIES Substance Reaction Event Type Date Status Tramadol HCl rash Drug Allergy Jul, Active Ketorolac Tromethamine rash Drug Allergy Jul, Activ e Bactrim shortness of breath Drug Allergy Jul, Active Azithromycin shortness of breath Drug Allergy Jul, Active latex rash Non Drug Allergy Jul, Active SOCIAL HISTORY No smoking Hx information available PLAN OF CARE Activity Details Follow Up 4 Weeks Reason: VITAL SIGNS Height 63 in 2016-08-08 Weight 229.2 lbs 2016-08-08 Temperature 97.8 degrees Fahrenheit 2016-08-08 Heart Rate 84 bpm 2016-08-08 Respiratory Rate 18 2016-08-08 BMI 40.60 kg/m2 2016-08-08 Blood pressure systolic 128 mmHg 2016-08-08 Blood pressure diastolic 82 mmHg 2016-08-08 MEDICATIONS Medication Instructions Dosage Frequency Start Date End Date Duration S tatus Hydrocodone-Acetaminophen 7.5-325 MG Orally every 4 hrs as needed 1 tablet Jul, Active Lisinopril 20 MG Orally Once a day 1 tablet 24h Active RESULTS No Results PROCEDURES Procedure Date Ordered Related Diagnosis Body Site Office Visit, Est Pt., Level 3 Aug 08, 2016 IMMUNIZATIONS No Known Immunizations
--- OUTSIDE RECORDS SUMMARY | 2020-01-18 16:54 | XMS REPORT ---
Author Author [facility] Medic al Staff, TOMY Rashid Organization [facility] Address [address] [place], [place] [address] Phone [phone] Care Team Providers Care Pouch Maker Name Role Phone CHRISTOPHER OYRK, CAROLEE PP [phone] Summary purpose TRANSITION OF CARE AUTO GENERATION [...] Code Type Description Date Performed Performing Physician 18623 CPT-4 PT EVALUATION 08-27-2014 CAROLEE Thoa 78507 CPT-4 MECHANICAL TRACTION THERAPY 08-27-2014 CAROLEE WHITE 13850 CPT-4 ELECTRIC STIMULATION THERAPY 08-31-2014 CAROLEE WHITE 51886 CPT-4 MECHANICAL TRACTION THERAPY 08-31-2014 CAROLEE WHITE Functional status No functional or [...]
--- OUTSIDE RECORDS SUMMARY | 2020-01-18 16:55 | XMS REPORT ---
Author Author Jeri TORRES Organization [facility] [place] Address [address] [place] [address] Care Team Providers Care Upholstery Estimator Name Role Phone MELISSA, DAWSUDHA Unavailable PROBLEMS Type Condition ICD9-CM Code TYL45-XO Code Onset Dates Condition S tatus SNOMED Code Problem Pain at surgical incision R20.8 Acti ve [id number] Problem Other chronic pain G89.29 Active 8 2599324 Problem Encounter for immunization Z23 Act krishna 706073662 Problem Mood disorder F39 Active 439881 05 Problem Intermittent explosive F63.81 Active 59675730 Problem Pilonidal cyst L05.91 Active 03599 008 Problem Ulcer L98.499 Active 091746640 Problem Interstitial cystitis N30.10 Active 424387590 Problem Ingrown left big toenail L60.0 Activ e 250452949 ALLERGIES No Information ENCOUNTERS Encounter Location Date Diagnosis [facility]ANDE[facility] SHELTON [address] [id number] [place] [id number] 07 May, 2017 Mood disorder F39 and Intermittent explo sive F63.81 [facility] [place] [address] [facility] [address] [id number] [place], [place] [phone] Oct, [facility] [place] [address] [facility] [address] [id number] [place], [place] [address] [id number] 18 Oct, 2016 Right leg swelling M79.89 [facility] [place] [address] [facility] [address] [id number] [place], [place] [address]55 [id number] 15 Oct, 2016 Right leg swelling M79.89 [facility] [place] [address] [facility] [address] [id number] [place], [place] [address]37 [id number] 14 Oct, 2016 [facility] [place] [address] [facility] [address] [id number] [place], [place] [address] [id number] Oct, [facility] [place] [address] [facility] [address] [id number] [place], [place] [address] 043[address] Oct, Right leg swelling M79.89 [facility] [place] [address] [place] [address] C [id number] [place], [place] [address] [id number] Oct, [facility] [place] [address] [place] [address] C [id number] [place], [place] [address] 500045 Oct, Interstitial cystitis N30.10 [facility] [place] [address] [place] [address] C [id number] [place], [place] [address] [id number] Sep, Ingrown left big toenail L60.0 [facility] [place] [address] [place] [address] C [id number] [place], [place] [address] 684392 Sep, 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 [facility] [address] [place] [address] C [id number] [place], [place] [address] 686143 Sep, Pain at surgical incision R20.8 and Pilonidal cyst L05.91 [facility] [address] [place] [address] C [id number] [place], [place] [address] 136096 Sep, Dental examination Z01.20 [facility] [place] [address] [place] [address] C [id number] [place], [place] [address] 269976 Aug, Right leg swelling M79.89 [facility] [address] [place] [address] C [id number] [place], [place] [address] 347603 Aug, [facility] [place] [address] [place] [address] C [id number] [place], [place] [address] 978432 Aug, Right leg swelling M79.89 and Upper respiratory tract infection, unspecified type J06.9 [facility] [place] [address] [place] [address] C [id number] [place], [place] [address] 182228 Aug, Ulcer L98.499 [facility] [place] [address] [place] [address] C [id number] [place], [place] [address] 719742 Aug, Ulcer L98.499 [facility] [place] [address] [place] [address] C [id number] [place], [place] [address] 08[address] Aug, Pain of right lower extremity M79.604 [facility] [place] [address] [facility] [id number] [address] [place] [id number] Aug, [facility] [place] [address] [facility] [address] [id number] [place], [place] [address] 107920 Aug, Right leg swelling M79.89 [facility] [place] [address] [facility] [address] [id number] [place], [place] [address] 934547 Aug, [facility] [place] [address] [facility] [address] [id number] [place], [place] [address] 590427 Aug, Ulcer L98.499 and Right leg swelling M79.89 [facility] [place] [address] [place] [address] C [id number] [place], [place] [address] 270388 Jul, Complex regional pain syndrome type 1 of right lower extremity G90.521 [facility] [place] [address] [place] [address] C [id number] [place], [place] [address] 182514 Jul, Right foot pain M79.671 [facility] [place] [address] [place] [address] C [id number] [place], [place] [address] 670729 Jul, Right foot pain M79.671 [facility] [place] [address] [place] [address] [address] [id number] [place], [place] [address] 097400 Jul, Right foot pain M79.671 [facility] [place] [address] [place] [address] [address] [id number] [place], [place] [address] 391193 Jul, [facility] [place] [address] [place] [address] C [id number] [place], [place] [address] 173764 Jul, Other chronic pain G89.29 ; Right foot pain M79.671 and Pain in right ankle and joints of right foot M25.571 [facility] [place] [address] [place] [address] [address] [id number] [place], [place] [address] 914734 Apr, [facility] [place] [address] [place] [address] C [id number] [place], [place] [address] 190232 Mar, Pilonidal cyst L05.91 [facility] [place] [address] [facility] C [id number] [place], [place] [address] [id number] Mar, Chest pain in adult R07.9 ; Dizziness R42 and Palpitations R00.2 [facility] [place] [address] [facility] [address] [id number] [place], [place] [address] [id number] Mar, [facility] [place] [address] [facility] [address] [id number] YUAN RONIT [address] [id number] 21 Mar, 2016 Encounter for immunization Z23 and Pain at surgical incision R20.8 [facility] [place] [address] [facility] [address] [id number] YUAN, RONIT [address] [id number] 20 Mar, 2016 [facility] [place] [address] [facility] C [id number] [place], [place] [address] [id number] 16 Mar, 2016 Post-op pain G89.18 ; Postoperative hematoma involving genitourinary system following genitourinary procedure N99.820 and Pilonidal cyst L05.91 IMMUNIZATIONS No Known Immunizations SOCIAL HISTORY Never Assessed REASON FOR VISIT intake PLAN OF CARE Activity Details Follow Up 4 Weeks Reason: VITAL SIGNS Height 63 in 2017-05-15 Weight 224.8 lbs 2017-05-15 Heart Rate 100 bpm 2017-05-15 BMI 39.82 kg/m2 2017-05-15 Blood pressure systolic 156 mmHg 2017-05-15 Blood pressure diastolic 102 mmHg 2017-05-15 MEDICATIONS Medication Instructions Dosage Frequency Start Date End Date Duration S tatus Depakote 125 MG Orally twice a day 1 tab q am, 2 tab qhs 12h May, 30 days Active RESULTS No Results PROCEDURES No Known procedures INSTRUCTIONS MEDICATIONS ADMINISTERED No Known Medications MEDICAL (GENERAL) HISTORY Type Description Date Medical [...]
--- OUTSIDE RECORDS SUMMARY | 2020-01-18 16:55 | XMS REPORT | Clinical Summary ---
Author Author Admin, Jeri Rashid Organization [facility] Address Unknown Phone Unavailable Allergies, Adverse Reactions, Alerts Allergy Name Reaction Description Start Date Severity Status Pr ovider BACTRIM Critical Active Kalpesh Dong MD ZITHROMAX rash all over Critical Active Adrya H aubrey LATEX rash Moderate Active Darya [...] due to poison marilee ICD-692.6 Inactive Abdirahman iRos MD Back strain ICD-847.9 Inactive Abdirahman Rios MD Sinusitis, acute ICD-461.9 Inactive Abdirahman Casas MD AFTERCARE FOLLOW SURGERY SKIN&SUBCUT TISSUE NEC ICD-V58.77 Inactive Abdirahman Rios MD Impetigo ICD-684 Inactive Abdirahman Rios MD 08/24 Medication List Medication Instructions Start Date Stop Date Generic Name NDC Status Provider Patient Instruction PERCOCET 10-325 MG ORAL TABS 1 every 4 hours as needed OXYCODONE-ACETAMINOPHEN 72843452893 Active Kalpesh Dong MD Active PROAIR HFA 108 (90 BASE) MCG/ACT AERS 2 puff q 4-6 hrs PRN 01/24 ALBUTEROL SULFATE 49473020531 No Longer Active Kalpesh Dong MD Active ALPRAZOLAM 0.5 MG TABS 1 po BID PRN Anxiety ALPRA ZOLAM 41032939509 Active Abdirahman Rios MD Active EMLA 2.5-2.5 % EXT CREA apply to skin lesion q 6 hours, prn LIDOCAINE-PRILOCAINE 22123237245 Active Hira Moser APRN Active CYCLOBENZAPRINE HCL 10 MG TABS 1 tablet by mouth three times daily as needed for muscle spasm/pain CYCLOBENZAPRINE HCL 92334719737 Active Abdirahman Rios MD Active PREDNISONE 20 MG TAB 2 tabs daily for 3 days, 1 t ab daily for 3 days, 1/2 tab daily for 2 days PREDNISONE 39110929079 No Longer Active Abdirahman Rios MD Active KEFLEX 500 MG CAP 1 po qid CEPHALEXIN 799524415 20 No Longer Active Kalpesh Dong MD Active PERCOCET 5-325 MG TAB 1 every 6 hours as needed OXYCODONE-ACETAMINOPHEN 83056360616 No Longer Active Shola MCGILL Active LC-5 LIDOCAINE 5 % CREA apply 1 time daily to affected area 2013 LIDOCAINE (ANORECTAL) 74345331867 No Longer Active Hira muniz APRN Active HYDROCODONE-ACETAMINOPHEN 5-325 MG TABS 2 tablets by m outh every 8 hours as needed for pain HYDROCODONE-ACETAMINOPHEN 91357400142 Acti ve Abdirahman Rios MD Active HYDROCODONE-ACETAMINOPHEN 10-325 MG TABS 1 by mouth ev chaka 8 hours as needed for pain HYDROCODONE-ACETAMINOPHEN 89397729015 No Longer Active Hira Moser APRN Active LORATADINE 10 MG TABS 1 tablet by mouth daily L ORATADINE 34807044356 No Longer Active Hira Moser APRN Active DIFLUCAN 150 MG TAB 1 qODay x 2 doses FLUCONAZO LE 71301994888 No Longer Active Jillina Joyzell WHITE SPO[employer]ER Active CYCLOBENZAPRINE HCL 10 MG TABS 1/2 - 1 tab PO tid PRN back p ain, muscle spasm CYCLOBENZAPRINE HCL 62795096103 No Longer Active Karen herson Frazell WHITE SPOOLER Active AUGMENTIN 875-125 MG TAB 1 tab by mouth twice daily with food 20 22/05/07 AMOXICILLIN-POT CLAVULANATE 07857503995 No Longer Active Loida Rios MD Active MOBIC 15 MG TABS 1 tab daily MELOXICAM 559268348 14 No Longer Active Abdirahman Rios MD Active PERCOCET 7.5-325 MG TABS 1 PO tid PRN pain OXYCODONE-ACETAMINOPHEN 39384299220 No Longer Active Abdirahman Rios MD Active LIDODERM 5 % PTCH One patch to painful area MD N. On for 12 hrs, off for 12 hrs. LIDOCAINE 98777015535 No Longer Active Abdirahman Rios MD Active PERCOCET 7.5-325 MG TABS 1 PO q 8 hrs PRN pain OXYCODONE-ACETAMINOPHEN 13288121300 No Longer Active Shola MCGILL Active HYDROCODONE-ACETAMINOPHEN 7.5-325 MG TABS 1 by mouth e very 6 hours as needed for pain HYDROCODONE-ACETAMINOPHEN 52144961414 No Longer Active Good Julian MD Active CLINDAMYCIN HCL 300 MG CAPS 1 po QID x 7 days CLINDAMYCIN HCL 85547136628 No Longer Active Abdirahman Rios MD Activ e BACTRIM DS 800-160 MG TABS 1 po BID x 7 days 5 SULFAMETHOXAZOLE-TRIMETHOPRIM 72290239764 No Longer Active Abdirahman Rios MD Active ENDOCET 10-325 MG TABS 1 q 6 hr prn OXYCODONE-ACETAMINOPHEN 76520544921 No Longer Active Abdirahman Rios MD Active IBUPROFEN 800 MG TABS 1 tid prn IBUPROFEN 401372 96775 No Longer Active Abdirahman Rios MD Active BACTRIM DS 800-160 MG TABS by mouth twice a day 11/05 SULFAMETHOXAZOLE-TRIMETHOPRIM 93984605337 No Longer Active Good Julian MD Active HYDROCODONE-ACETAMINOPHEN 7.5-325 MG TABS 1 four times a day as needed for pain HYDROCODONE-ACETAMINOPHEN 17873978687 No Longer Activ e Good Julian MD Active KEFLEX 500 MG CAP 1 tab po tid CEPHALEXIN 788916 33858 No Longer Active Matthewllina Shanti RIVAS Active IBUPROFEN 800 MG TAB 1 pill three times daily as needed for pain IBUPROFEN 68717363283 No Longer Active Kalpesh Dong MD Active PROMETHAZINE-CODEINE 6.25-10 MG/5ML SYRP 1 tsp every 6 hrs prn c ough PROMETHAZINE-CODEINE 00698100656 No Longer Active Kalpesh Carr Active HYDROCODONE-ACETAMINOPHEN 5-325 MG TABS 1 tab by mouth every 6 hours as needed HYDROCODONE-ACETAMINOPHEN 46177524626 No Longer Activ e Shola MCGILL Active CEPHALEXIN 500 MG CAPS 1 PO bid x 7 days CEPHAL EXIN 35952474032 No Longer Active Shola MCGILL Active BACTRIM DS 800-160 MG TAB 1 tab by mouth twice daily 2 TRIMETHOPRIM-SULFAMETHOXAZOLE 27976853165 No Longer Active Kalpesh Dong MD Active HYDROCODONE-ACETAMINOPHEN 5-325 MG TABS 1 PO tid PRN pain 5 HYDROCODONE-ACETAMINOPHEN 74027643111 No Longer Active Abhinav Galvan MD Active IMPLANON 68 MG IMPL IMPLANTED IN LEFT ARM ETONO GESTREL 11170829462 No Longer Active Jillina Shanti ANDRADEN Active AMOXICILLIN 500 MG TABS 2 tabs PO bid x 10 d AM OXICILLIN 74576640772 No Longer Active Kalpesh Dong MD Active LEVAQUIN 500 MG TABS 1 PO q day x 7 days LEVOFL OXACIN 39545979327 No Longer Active Shola MCGILL Active FIORICET 50-325-40 MG TABS 2 PO q 8 hrs PRN FOSTER [id number] Active Abdirahman Rios MD Active AMITRIPTYLINE HCL 25 MG TAB 1 tab by mouth daily 60 minutes before bedtime AMITRIPTYLINE HCL 18161132414 No Longer Active Shola MCGILL Active LORTAB 5 5-500 MG TABS 1/2 to 1 tablet by mouth go ry 6 hours as needed for pain HYDROCODONE-ACETAMINOPHEN 50608141154 No Longer Active Shola MCGILL Active CEPHALEXIN 500 MG TABS Take one by mouth four times daily, morning, noon, early evening and bedtime. CEPHALEXIN 58203752792 No Long er Active Hira Moser APRN Active TYLENOL/CODEINE #3 300-30 MG TAB 1-2 po q6hr PRN Pain ACETAMINOPHEN-CODEINE 42177615105 No Longer Active Edilberto Marino DO Active PRISTIQ 50 MG [id number] 1 po qd DESVENLAFAXI NE SUCCINATE 71037625067 No Longer Active Edilberto Marino DO Active PENICILLIN V POTASSIUM 500 MG TAB 1 four times a day 2 PENICILLIN V POTASSIUM 91066122386 No Longer Active Edilberto Marino DO Active DOXYCYCLINE HYCLATE 100 MG CAPS Take one (1) tablet by mouth twice a day DOXYCYCLINE HYCLATE 50531564305 No Longer Active Ronnie Galvan MD Active HYDROCODONE-ACETAMINOPHEN 5-325 MG TABS 1 po q 6hr PRN Pain 2011 HYDROCODONE-ACETAMINOPHEN 44877825468 No Longer Active Patri joan Lock RN Active BACTRIM DS 800-160 MG TAB 1 tab by mouth twice daily 2 TRIMETHOPRIM-SULFAMETHOXAZOLE 83742407704 No Longer Active Kalpesh Dong MD Active LORTAB 5 5-500 MG TABS 1/2 to 1 tablet by mouth go ry 4 hours as needed for pain HYDROCODONE-ACETAMINOPHEN 21474665835 No Longer Active Kalpesh Dong MD Active GENERESS FE 0.8-25 MG-MCG CHEW Take one by mouth daily NORETHIN-ETH ESTRADIOL-FE 63416660112 No Longer Active Kalpesh Dong MD Active HYDROCODONE-ACETAMINOPHEN 7.5-500 MG TABS 1-2 every 4 hours as needed HYDROCODONE-ACETAMINOPHEN 26771861293 No Longer Activ e Kalpesh Dong MD Active FERROUS SULFATE 325 (65 FE) MG TABS 1 tablet by mouth twice yung y FERROUS SULFATE 22534360377 No Longer Active Kalpesh Dong MD Active IBUPROFEN 600 MG TAB 1 po q6-8hr PRN IBUPROFEN 60478455458 No Longer Active Kalpesh Dong MD Active SPIRONOLACTONE 25 MG TAB 1 tablet by mouth daily 01/22 SPIRONOLACTONE 89027340417 No Longer Active Kalpesh Dong MD Acti ve HYDROCODONE-ACETAMINOPHEN 7.5-325 MG TABS 1 po QID PRN Pain 2011 HYDROCODONE-ACETAMINOPHEN 46882291845 No Longer Active Kalpesh Dong MD Active CLINDAMYCIN HCL 300 MG CAPS 1 po q6hr x 7 days CLINDAMYCIN HCL 54103034200 No Longer Active Edilberto Marino DO Active PREDNISONE 20 MG TAB 2 tabs daily for 4 days, 1 t ab daily for 4 days, 1/2 tab daily for 4 days PREDNISONE 75316727882 No Longer Active Edilberto Marino DO Active PERCOCET 5-325 MG TABS 1 tablet by mouth every 6 hours as ne eded for pain OXYCODONE-ACETAMINOPHEN 54167472496 No Longer Active Abdirahman Rios MD Active VITAMINS TABS Take one by mouth daily MV & MIN W/FE-FA TABS 96825105363 No Longer Active Abdirahman Rios MD Active LUIS 3-0.02 MG TABS 1 tablet by mouth daily as directed DROSPIRENONE-ETHINYL ESTRADIOL 88997720052 No Longer Active Abdirahman Rios MD Active LORATADINE 10 MG TABS 1 tablet by mouth daily L ORATADINE 90048232574 No Longer Active Kalpesh Dong MD Active HYDROCODONE-ACETAMINOPHEN 5-325 MG TABS 1 po q 6hr PRN Pain 2010 HYDROCODONE-ACETAMINOPHEN 43632979347 No Longer Active Edilberto Marino DO Active BACTRIM DS 800-160 MG TAB 1 tab by mouth twice daily 2 TRIMETHOPRIM-SULFAMETHOXAZOLE 28784771806 No Longer Active Abdirahman Rios MD Active 28-0.8 MG TABS Take one by mouth daily 09/20 VIT-FE FUMARATE-FA 02075447072 No Longer Active Abdirahman Rios MD Active CIPRO 500 MG TAB 1 tablet by mouth twice daily CIPROFLOXACIN HCL 35858932330 No Longer Active Abdirahman Rios MD Active BENADRYL 25 MG CAP 1 po q8hr PRN Congestion DIPHENHYDRAMINE HCL 51958303951 No Longer Active Abdirahman Rios MD Active ZOLOFT 50 MG TAB 1 po qd SERTRALINE HCL 511759 42941 No Longer Active Abdirahman Rios MD Active AMOXICILLIN 875 MG TABS 1 tab by mouth twice daily 201 08/09/13 AMOXICILLIN 67004330607 No Longer Active Abdirahman Rios MD Activ e AMOXICILLIN 875 MG TABS 1 tab by mouth twice daily 201 07/19/27 AMOXICILLIN 45335089828 No Longer Active Abdirahman Rios MD Activ e BACTRIM DS 800-160 MG TAB 2 tab by mouth twice daily 2 TRIMETHOPRIM-SULFAMETHOXAZOLE 09649246151 No Longer Active Abdirahman Rios MD Active KEFLEX 500 MG CAP 1 po tid x 10 days CEPHALEXIN 54841184247 No Longer Active Abdirahman Rios MD Active AMOXICILLIN 875 MG TABS 1 tab by mouth twice daily 201 07/18/07 AMOXICILLIN 57760593418 No Longer Active Abdirahman Rios MD Activ e BACTRIM DS 800-160 MG TAB 2 tab by mouth twice daily 2 BACTRIM DS 800-160 MG TAB TRIMETHOPRIM-SULFAMETHOXAZOLE Inactive ZOLOFT 50 MG TAB 1 po qd ZOLOFT 50 MG TAB 3129 41 SERTRALINE HCL Inactive BENADRYL 25 MG CAP 1 po q8hr PRN Congestion BENADRYL 25 MG CAP 4323891 DIPHENHYDRAMINE HCL Inactive 28-0.8 MG TABS Take one by mouth daily 09/20 28-0.8 MG TABS VIT-FE FUMARATE-FA Inactive HYDROCODONE-ACETAMINOPHEN 5-325 MG TABS 1 po q 6hr PRN Pain 2010 HYDROCODONE-ACETAMINOPHEN 5-325 MG TABS 224699 HYDROCODONE-ACETAMINOPHEN Inactive LORATADINE 10 MG TABS 1 tablet by mouth daily LORATADINE 10 MG TABS 080296 LORATADINE Inactive LUIS 3-0.02 MG TABS 1 tablet by mouth daily as directed LUIS 3-0.02 MG TABS DROSPIRENONE-ETHINYL ESTRADIOL Inactive VITAMINS TABS Take one by mouth daily VITAMINS TABS MV & MIN W/FE-FA TABS Inactive PERCOCET 5-325 MG TABS 1 tablet by mouth every 6 hours as ne eded for pain PERCOCET 5-325 MG TABS 8312997 OXYCODONE-ACETAMIN OPHEN Inactive PREDNISONE 20 MG TAB 2 tabs daily for 4 days, 1 t ab daily for 4 days, 1/2 tab daily for 4 days PREDNISONE 20 MG TAB 582735 PREDNISON E Inactive CLINDAMYCIN HCL 300 MG CAPS 1 po q6hr x 7 days CLINDAMYCIN HCL 300 MG CAPS 490467 CLINDAMYCIN HCL Inactive HYDROCODONE-ACETAMINOPHEN 7.5-325 MG TABS 1 po QID PRN Pain 2011 HYDROCODONE-ACETAMINOPHEN 7.5-325 MG TABS 112999 HYDROCODONE-ACETAMINOPHEN Inactive SPIRONOLACTONE 25 MG TAB 1 tablet by mouth daily 01/22 SPIRONOLACTONE 25 MG TAB 244108 SPIRONOLACTONE Inactive IBUPROFEN 600 MG TAB 1 po q6-8hr PRN IBUPROFEN 600 MG TAB 292780 IBUPROFEN Inactive FERROUS SULFATE 325 (65 FE) MG TABS 1 tablet by mouth twice yung y FERROUS SULFATE 325 (65 FE) MG TABS 508034 FERROUS SULF ATE Inactive HYDROCODONE-ACETAMINOPHEN 7.5-500 MG [...] PRN Pain 2011 HYDROCODONE-ACETAMINOPHEN 5-325 MG TABS 531195 HYDROCODONE-ACETAMINOPHEN Inactive DOXYCYCLINE HYCLATE 100 MG CAPS Take one (1) tablet by mouth twice a day DOXYCYCLINE HYCLATE 100 MG CAPS 999261 DOXYCYCLINE HYCLATE Inactive PENICILLIN V POTASSIUM 500 MG TAB 1 four times a day 2 PENICILLIN V POTASSIUM 500 MG TAB 181281 PENICILLIN V POTASSIUM Oklee ctive PRISTIQ 50 MG [id number] 1 po qd PRISTIQ 50 MG [id number] DESVENLAFAXINE SUCCINATE Inactive TYLENOL/CODEINE #3 300-30 MG TAB 1-2 po q6hr PRN Pain TYLENOL/CODEINE #3 300-30 MG TAB 547125 ACETAMINOPHEN-CODEINE Inact krishna CEPHALEXIN 500 MG TABS Take one by mouth four times daily, morning, noon, early evening and bedtime. CEPHALEXIN 500 MG TABS 803225 CEPHALEXIN Inactive LORTAB 5 5-500 MG TABS 1/2 to 1 tablet by mouth go ry 6 hours as needed for pain LORTAB 5 5-500 MG TABS HYDROCODONE-A CETAMINOPHEN Inactive AMITRIPTYLINE HCL 25 MG TAB 1 tab by mouth daily 60 minutes before bedtime AMITRIPTYLINE HCL 25 MG TAB 447293 AMITRIPTYLINE HCL Inactive AMOXICILLIN 500 MG TABS 2 tabs PO bid x 10 d 7 AMOXICILLIN 500 MG TABS 720778 AMOXICILLIN Inactive IMPLANON 68 MG IMPL IMPLANTED IN LEFT ARM IMPLANON 68 MG IMPL ETONOGESTREL Inactive HYDROCODONE-ACETAMINOPHEN 5-325 MG TABS 1 PO tid PRN pain 5 HYDROCODONE-ACETAMINOPHEN 5-325 MG TABS 571821 HYDROCODONE-ACETAMIN OPHEN Inactive BACTRIM DS 800-160 MG TAB 1 tab by mouth twice daily 2 BACTRIM DS 800-160 MG TAB TRIMETHOPRIM-SULFAMETHOXAZOLE Inac tive CEPHALEXIN 500 MG CAPS 1 PO bid x 7 days CEPHALEXIN 500 MG CAPS 821102 CEPHALEXIN Inactive HYDROCODONE-ACETAMINOPHEN 5-325 MG TABS 1 tab by mouth every 6 hours as needed HYDROCODONE-ACETAMINOPHEN 5-325 MG TABS 465313 HYDROCODONE-ACETAMINOPHEN Inactive PROMETHAZINE-CODEINE 6.25-10 MG/5ML SYRP 1 tsp every 6 hrs prn c ough PROMETHAZINE-CODEINE 6.25-10 MG/5ML SYRP 718688 PROMETH AZINE-CODEINE Inactive IBUPROFEN 800 MG TAB 1 pill three times daily as needed for pain IBUPROFEN 800 MG TAB 840268 IBUPROFEN Inactive KEFLEX 500 MG CAP 1 tab po tid KEFLEX 500 MG CAP 171728 CEPHALEXIN Inactive HYDROCODONE-ACETAMINOPHEN 7.5-325 MG TABS 1 four times a day as needed for pain HYDROCODONE-ACETAMINOPHEN 7.5-325 MG TABS 538509 HYDROCODONE-ACETAMINOPHEN Inactive BACTRIM DS 800-160 MG TABS by mouth twice a day 11/05 BACTRIM DS 800-160 MG TABS SULFAMETHOXAZOLE-TRIMETHOPRIM Inactive IBUPROFEN 800 MG TABS 1 tid prn IBUPROFEN 800 MG TABS 557098 IBUPROFEN Inactive ENDOCET 10-325 MG TABS 1 q 6 hr prn ENDOC ET 10-325 MG TABS 4063352 OXYCODONE-ACETAMINOPHEN Inactive HYDROCODONE-ACETAMINOPHEN 7.5-325 MG TABS 1 by mouth e very 6 hours as needed for pain HYDROCODONE-ACETAMINOPHEN 7.5-325 MG TABS 690655 HYDROCODONE-ACETAMINOPHEN Inactive PERCOCET 7.5-325 MG TABS 1 PO q 8 hrs PRN pain PERCOCET 7.5-325 MG TABS 1795851 OXYCODONE-ACETAMINOPHEN Inactive LIDODERM 5 % PTCH One patch to painful area MD N. On for 12 hrs, off for 12 hrs. LIDODERM 5 % PTCH 7467330 LIDOCAINE Inactiv e PERCOCET 7.5-325 MG TABS 1 PO tid PRN pain PERCOCET 7.5- 325 MG TABS 9423830 OXYCODONE-ACETAMINOPHEN Inactive MOBIC 15 MG TABS 1 tab daily MOBIC 15 MG TABS 15 2695 MELOXICAM Inactive CYCLOBENZAPRINE HCL 10 MG TABS 1/2 - 1 tab PO tid PRN back p ain, muscle spasm CYCLOBENZAPRINE HCL 10 MG TABS 434190 CYCLOBENZA JOSEPH HCL Inactive LORATADINE 10 MG TABS 1 tablet by mouth daily LORATADINE 10 MG TABS 043872 LORATADINE Inactive HYDROCODONE-ACETAMINOPHEN 10-325 MG TABS 1 by mouth ev chaka 8 hours as needed for pain HYDROCODONE-ACETAMINOPHEN 10-325 MG TABS 097449 HYDROCODONE-ACETAMINOPHEN Inactive LC-5 LIDOCAINE 5 % CREA apply 1 time daily to affected area 2013 LC-5 LIDOCAINE 5 % CREA LIDOCAINE (ANORECTAL) In active PERCOCET 5-325 MG TAB 1 every 6 hours as needed PERCOCET 5-325 MG TAB 6861657 OXYCODONE-ACETAMINOPHEN Inactive KEFLEX 500 MG CAP 1 po qid KEFLEX 500 MG CAP 30 9114 CEPHALEXIN Inactive PROAIR HFA 108 (90 BASE) MCG/ACT AERS 2 puff q 4-6 hrs PRN 01/24 PROAIR HFA 108 (90 BASE) MCG/ACT AERS ALBUTEROL SULFATE Inactive AMOXICILLIN 875 MG TABS 1 tab by mouth twice daily 201 07/18/07 AMOXICILLIN 875 MG TABS 848052 AMOXICILLIN Inactive KEFLEX 500 MG CAP 1 po tid x 10 days KEFLEX 500 MG CAP 849620 CEPHALEXIN Inactive AMOXICILLIN 875 MG TABS 1 tab by mouth twice daily 201 07/19/27 AMOXICILLIN 875 MG TABS 724700 AMOXICILLIN Inactive AMOXICILLIN 875 MG TABS 1 tab by mouth twice daily 201 08/09/13 AMOXICILLIN 875 MG TABS 709021 AMOXICILLIN Inactive CIPRO 500 MG TAB 1 tablet by mouth twice daily CIPRO 500 MG TAB 705785 CIPROFLOXACIN HCL Inactive BACTRIM DS 800-160 MG TAB 1 tab by mouth twice daily 2 BACTRIM DS 800-160 MG TAB TRIMETHOPRIM-SULFAMETHOXAZOLE Inac tive LEVAQUIN 500 MG TABS 1 PO q day x 7 days LEVAQUIN 500 MG TABS 586354 LEVOFLOXACIN Inactive CLINDAMYCIN HCL 300 MG CAPS 1 po QID x 7 days CLINDAMYCIN HCL 300 MG CAPS 595279 CLINDAMYCIN HCL Inactive AUGMENTIN 875-125 MG TAB 1 tab by mouth twice daily with food 22/05/07 AUGMENTIN 875-125 MG TAB 106973 AMOXICILLIN-POT CLAVULA [place] Inactive DIFLUCAN 150 MG TAB 1 qODay x 2 doses DIFLUCAN 150 MG TAB 073401 FLUCONAZOLE Inactive PREDNISONE 20 MG TAB 2 tabs daily for 3 days, 1 t ab daily for 3 days, 1/2 tab daily for 2 days PREDNISONE 20 MG TAB 574497 PREDNISON E Inactive Advance Directives Directive Description Start Date PERMISSION TO SHARE Immunizations Vaccine Administration Date Value Standard Alf cription Seasonal influenza vaccine, injectable, containing preservative, for > 3 years old (Afluria, FluLaval, Fluzone, Fluvirin, Fluarix, Agriflu(>= 18 yo)) Fluzone (>3 yrs.) [[id number]] Influenza, seasonal, inject able Seasonal influenza vaccine, injectable, preservative free, for > 3 years old (Afluria, FluLaval, Fluzone, Fluvirin, Fluarix, Agriflu(>= 18 yo)) Fluzone preservative free (>3 yrs.) [[id number]] Influenza, seasonal, injectable, preservative free Seasonal influenza vaccine, injectable, containing preservative, for > 3 years old (Afluria, FluLaval, Fluzone, Fluvirin, Fluarix, Agriflu(>= 18 yo)) Fluzone (>3 yrs.) [[id number]] Influenza, seasonal, inject able Seasonal influenza vaccine, injectable, containing preservative, for > 3 years old (Afluria, FluLaval, Fluzone, Fluvirin, Fluarix, Agriflu(>= 18 yo)) Fluzone (>3 yrs.) [[id number]] Influenza, seasonal, inject able dT (Diphtheria and [...] negative Encounters Code Encounter Date Provider Facility CPT-74493 Level 2 Est. 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 Patient 13:32:17 OCCUPATIONAL HEALTH PROFESSIONAL Kalpesh goins MD [facility] CPT-08770 Level 3 Est. Patient 17:32:57 OCCUPATIONAL HEALTH PROFESSIONAL Edilberto tiwari DO [facility] CPT-21582 Level 3 Est. Patient 17:22:33 OCCUPATIONAL HEALTH PROFESSIONAL Edilberto tiwari [facility] CPT-28084 Level 2 Est. Patient 16:57:09 OCCUPATIONAL HEALTH PROFESSIONAL Kalpesh goins MD [facility] CPT-84194 Level 3 Est. Patient 14:03:08 OCCUPATIONAL HEALTH PROFESSIONAL Abdirahman Rios MD [facility] CPT-93717 Level 3 Est. Patient 18:12:34 CDT Shola Wright [facility] CPT-35235 Level 3 Est. Patient 19:34:46 CDT Shola Wright [facility] CPT-63247 Level 3 Est. Patient 14:19:37 CDT Abdirahman Rios MD [facility] CPT-37913 Level 3 Est. Patient 14:11:58 CDT Kalpesh goins MD [facility]-10910 Level 3 Est. Patient 16:50:00 CDT Michelle MERCADO [facility] CPT-05357 Level 3 Est. Patient 17:11:32 OCCUPATIONAL HEALTH PROFESSIONAL Brandie bates MD PhD [facility] CPT-47046 Level 3 Est. Patient 16:31:47 OCCUPATIONAL HEALTH PROFESSIONAL Shola Wright [facility] CPT-02841 Level 3 Est. Patient 17:51:10 OCCUPATIONAL HEALTH PROFESSIONAL Abhinav Galvan MD [facility] CPT-10086 Level 4 Est. Patient 12:54:56 OCCUPATIONAL HEALTH PROFESSIONAL Kalpesh goins MD [facility]-24254 Level 4 Est. Patient 12:53:56 OCCUPATIONAL HEALTH PROFESSIONAL Kalpesh goins MD [facility]-16605 Level 3 Est. Patient 17:56:58 CDT Shola Wright [facility] CPT-90710 Level 3 Est. Patient 14:26:20 CDT Janak butcher [facility] CPT-90109 Level 3 Est. Patient 09:38:41 CDT Shola Thao Adriana [facility] CPT-75605 Level 3 Est. Patient 14:45:26 CDT Edilberto tiwari [facility] CPT-87414 Level 3 Est. Patient 10:51:33 [facility] Level [facility] Est. Patient 11:57:55 OCCUPATIONAL HEALTH PROFESSIONAL Shola Thao Adriana [facility] CPT-53502 Level 3 Est. Patient 09:53:33 OCCUPATIONAL HEALTH PROFESSIONAL Edilberto tiwari [facility] CPT-04280 Level 3 Est. Patient 14:42:54 OCCUPATIONAL HEALTH PROFESSIONAL Abhinav Galvan MD [facility] CPT-05129 Level 3 Est. Patient 15:10:02 CDT Janak butcher [facility] CPT-65416 Level 3 Est. Patient 15:20:20 CDT Theo dennis MD [facility] CPT-92669 Level 2 Est. Patient 14:08:57 CDT Kalpesh goins MD [facility] CPT-22936 Level 3 Est. Patient 13:56:19 CDT Abdirahman Rios MD [facility] CPT-65773 Level 3 Est. Patient 13:59:37 CDT Abdirahman Rios MD [facility] CPT-67158 Level 2 Est. Patient 14:44:59 CDT Kalpesh goins MD [facility] CPT-96807 Level 3 Est. Patient 06:06:23 CDT Edilberto tiwari [facility] CPT-42994 Level 3 Est. Patient 15:23:54 CDT Abdirahman Rios MD [facility] CPT-63552 Level 3 Est. Patient 15:43:49 CDT Abdirahman iRos MD [facility] CPT-60859 Level 3 Est. Patient 12:46:47 OCCUPATIONAL HEALTH PROFESSIONAL Abdirahman Rios MD [facility] CPT-20556 Level 3 Est. Patient 08:13:35 OCCUPATIONAL HEALTH PROFESSIONAL Abdirahman Rios MD [facility] CPT-95154 Level 2 Est. Patient 09:36:42 OCCUPATIONAL HEALTH PROFESSIONAL Abdirahman Rios MD [facility] CPT-39830 Level 3 Est. Patient 10:56:43 CDT Abdirahman Rios MD [facility] CPT-18227 Level 3 Est. Patient 18:24:52 CDT Abdirahman Rios MD [facility] CPT-70794 Level 3 Est. Patient 13:27:22 CDT Abdirahman Rios MD [facility] Procedures Code Procedure Name Date Entry Date Standard Desc ription CPT-01030 Postop F/U Visit 11:29:00 O[employer]UPATIONAL HE[employer] PROFESSIONAL CPT-J0696 Rocephin 1000 mg (Ceftriaxone) 17:22:33 OCCUPATIONAL HEALTH PROFESSIONAL CPT-94299 Postop F/U Visit 18:41:07 OCCUPATIONAL HE[employer] PROFESSIONAL CPT-51783 Postop F/U Visit 08:19:08 O[employer]UPATIONAL HE[employer] PROFESSIONAL CPT-62366 Immunization Single Admin 16:41:53 CDT 2013 CPT-39374 Fluzone Quadrivalent Intramuscular Suspe nsion 0.5 ML 16:41:53 CDT CPT-OV Office Visit 16:39:18 CDT CPT-OV Office Visit 16:16:36 CDT CPT-OV Office Visit 15:34:48 CDT CPT-12443 Postop F/U Visit 14:50:12 CDT CPT-54225 Postop F/U Visit 14:41:10 CDT CPT-97527 Venipuncture Draw Fee 11:38:04 OCCUPATIONAL HEALTH PROFESSIONAL CPT-44905 Postop F/U Visit 19:02:59 OCCUPATIONAL HEALTH PROFESSIONAL CPT-14851 Postop F/U Visit 12:04:54 OCCUPATIONAL HEALTH PROFESSIONAL CPT-52349 Administration single or combination vac cine inc oral 15:56:43 CDT CPT-97844 Influenza split virus > age 3 15:56:43 CDT CPT-88284 Hand comp min 3V 14:25:19 CDT CPT-09476 Postop F/U Visit 21:40:51 CDT CPT-04156 Postop F/U Visit 10:58:43 CDT CPT-37214 Administration single or combination vac cine inc oral 12:33:54 [employer] CPT-94972 Influenza Preservative Free split virus >age 3 12:33:54 [employer] CPT-57433 Administration single or combination vac cine inc oral 09:30:51 CDT CPT-47166 Influenza split virus > age 3 09:30:51 CDT CPT-14663 Postop F/U Visit 15:14:53 CDT CPT-70523 Postop F/U Visit 13:50:14 CDT CPT-72051 Postop F/U Visit 13:34:52 CDT CPT-OV Office Visit 16:55:03 CDT CPT-51257 [place] of cervix w bx ECC 13:32:50 CDT 10/19 CPT-J1885 Toradol 60 mg (Ketorolac) 15:31:59 CDT 2011 CPT-J1885 Toradol 60 mg ([employer]) 15:23:54 CDT 2011 CPT-40462 Visit 11:34:37 OCCUPATIONAL HE[employer] PROFESSIONAL CPT-13810 Visit 10:52:39 OCCUPATIONAL HEALTH PROFESSIONAL CPT-13249 Visit 10:12:02 OCCUPATIONAL HEALTH PROFESSIONAL CPT-91509 Visit 11:22:43 OCCUPATIONAL HEALTH PROFESSIONAL CPT-51606 Visit 11:24:12 OCCUPATIONAL HEALTH PROFESSIONAL CPT-80071 Visit 10:47:05 OCCUPATIONAL HEALTH PROFESSIONAL CPT-OV Office Visit 10:26:16 OCCUPATIONAL HE[employer] PROFESSIONAL CPT-OV Office Visit 15:34:31 OCCUPATIONAL HE[employer] PROFESSIONAL CPT-89265 Visit 10:42:08 OCCUPATIONAL HE[employer] PROFESSIONAL CPT-75373 Visit 10:52:45 OCCUPATIONAL HEALTH PROFESSIONAL CPT-000 Give Appropriate Flu Vaccine 16:56:41 CDT 2 CPT-07237 Administration single or combination vac cine inc oral 10:33:21 CDT CPT-78295 Influenza split virus > age 3 10:33:21 CDT CPT-19733 Visit 13:23:09 CDT CPT-63058 Visit 18:24:52 CDT CPT-18979 Sono OB comp > 14 weeks 12:07:49 CDT 04/07
--- OUTSIDE RECORDS SUMMARY | 2020-01-18 16:56 | XMS REPORT | Clinical Summary ---
Author Author Admin, Jeri Rashid Organization [facility] Address Unknown Phone [...] medical examination at a health care facility , INCIDENTAL PROBLEM ICD-V22.2 Inacti ve Abdirahman [...] Generic Name NDC Status Provider Patient Instruction CYCLOBENZAPRINE HCL 10 MG TABS 1 tablet by mouth three times daily as needed for muscle spasm/pain CYCLOBENZAPRINE HCL 52145144694 Active Abdirahman Rios MD Active PREDNISONE 20 MG TAB 2 tabs daily for 3 days, 1 t ab daily for 3 days, 1/2 tab daily for 2 days PREDNISONE 13035370076 Active Abdirahman Rios MD Active KEFLEX 500 MG CAP 1 po qid CEPHALEXIN 753395732 20 No Longer Active Kalpesh Dong MD Active PERCOCET 5-325 MG TAB 1 every 6 hours as needed OXYCODONE-ACETAMINOPHEN 61460344146 No Longer Active Shola MCGILL Active LC-5 LIDOCAINE 5 % CREA apply 1 time daily to affected area 2013 LIDOCAINE (ANORECTAL) 41819412935 No Longer Active Hira F razell BUSINESS DEVELOPER Active HYDROCODONE-ACETAMINOPHEN 5-325 MG TABS 2 tablets by m outh every 8 hours as needed for pain HYDROCODONE-ACETAMINOPHEN 45336927062 Acti ve Shola MCGILL Active HYDROCODONE-ACETAMINOPHEN 10-325 MG TABS 1 by mouth ev chaka 8 hours as needed for pain HYDROCODONE-ACETAMINOPHEN 87763812342 No Longer Active Jillina Frazell BUSINESS DEVELOPER Active LORATADINE 10 MG TABS 1 tablet by mouth daily L ORATADINE 50236654387 No Longer Active Jillina Frazell BUSINESS DEVELOPER Active DIFLUCAN 150 MG TAB 1 qODay x 2 doses FLUCONAZO LE 73855966194 No Longer Active Jillina Frazell BUSINESS DEVELOPER Active CYCLOBENZAPRINE HCL 10 MG TABS 1/2 - 1 tab PO tid PRN back p ain, muscle spasm CYCLOBENZAPRINE HCL 62943137058 No Longer Active Karen siri Frazell BUSINESS DEVELOPER Active AUGMENTIN 875-125 MG TAB 1 tab by mouth twice daily with food 20 22/05/07 AMOXICILLIN-POT CLAVULANATE 88256971916 No Longer Active Loida Rios MD Active MOBIC 15 MG TABS 1 tab daily MELOXICAM 756917048 14 No Longer Active Abdirahman Rios MD Active PERCOCET 7.5-325 MG TABS 1 PO tid PRN pain OXYCODONE-ACETAMINOPHEN 39674850786 No Longer Active Abdirahman Rios MD Active LIDODERM 5 % PTCH One patch to painful area [place] N. On for 12 hrs, off for 12 hrs. LIDOCAINE 14478687153 No Longer Active Abdirahman Rios MD Active PERCOCET 7.5-325 MG TABS 1 PO q 8 hrs PRN pain OXYCODONE-ACETAMINOPHEN 32197452770 No Longer Active Shola MCGILL Active HYDROCODONE-ACETAMINOPHEN 7.5-325 MG TABS 1 by mouth e very 6 hours as needed for pain HYDROCODONE-ACETAMINOPHEN 09123736807 No Longer Active Good Julian MD Active CLINDAMYCIN HCL 300 MG CAPS 1 po QID x 7 days CLINDAMYCIN HCL 85942838276 No Longer Active Abdirahman Rios MD Activ e BACTRIM DS 800-160 MG TABS 1 po BID x 7 days 5 SULFAMETHOXAZOLE-TRIMETHOPRIM 52120124427 No Longer Active Abdirahman Rios MD Active ENDOCET 10-325 MG TABS 1 q 6 hr prn OXYCODONE-ACETAMINOPHEN 85024913520 No Longer Active Abdirahman Rios MD Active IBUPROFEN 800 MG TABS 1 tid prn IBUPROFEN 515138 02073 No Longer Active Abdirahman Rios MD Active BACTRIM DS 800-160 MG TABS by mouth twice a day 11/05 SULFAMETHOXAZOLE-TRIMETHOPRIM 14111413426 No Longer Active Good Julian MD Active HYDROCODONE-ACETAMINOPHEN 7.5-325 MG TABS 1 four times a day as needed for pain HYDROCODONE-ACETAMINOPHEN 02957980217 No Longer Activ crystal Julian MD Active KEFLEX 500 MG CAP 1 tab po tid CEPHALEXIN 907824 04864 No Longer Active Hira Moser BUSINESS DEVELOPER Active IBUPROFEN 800 MG TAB 1 pill three times daily as needed for pain IBUPROFEN 39386532363 No Longer Active Kalpesh Dong MD Active PROMETHAZINE-CODEINE 6.25-10 MG/5ML SYRP 1 tsp every 6 hrs prn c ough PROMETHAZINE-CODEINE 04897186503 No Longer Active Kalpesh Carr Active ALPRAZOLAM 0.5 MG TABS 1 PO bid PRN ALPRAZOLAM 059917 01024 Active Brandie Cardneas MD PhD Active HYDROCODONE-ACETAMINOPHEN 5-325 MG TABS 1 tab by mouth every 6 hours as needed HYDROCODONE-ACETAMINOPHEN 53991468800 No Longer Activ e Shola MCGILL Active CEPHALEXIN 500 MG CAPS 1 PO bid x 7 days CEPHAL EXIN 56190396666 No Longer Active Shola MCGILL Active BACTRIM DS 800-160 MG TAB 1 tab by mouth twice daily 2 TRIMETHOPRIM-SULFAMETHOXAZOLE 29837259210 No Longer Active Kalpesh Dong MD Active HYDROCODONE-ACETAMINOPHEN 5-325 MG TABS 1 PO tid PRN pain 5 HYDROCODONE-ACETAMINOPHEN 75993202459 No Longer Active Abhinav Galvan MD Active IMPLANON 68 MG IMPL IMPLANTED IN LEFT ARM ETONO GESTREL 25013944000 No Longer Active Jillsiri Moser BUSINESS DEVELOPER Active AMOXICILLIN 500 MG TABS 2 tabs PO bid x 10 d AM OXICILLIN 84406252909 No Longer Active Kalpesh Dong MD Active LEVAQUIN 500 MG TABS 1 PO q day x 7 days LEVOFL OXACIN 96022698970 No Longer Active Shola MCGILL Active PROAIR HFA 108 (90 BASE) MCG/ACT AERS 2 puff q 4-6 hrs PRN ALBUTEROL SULFATE 95653140138 Active Edilberto Marino DO Active FIORICET 50-325-40 MG TABS 2 PO q 8 hrs PRN FOSTER [id number] Active Shola MCGILL Active AMITRIPTYLINE HCL 25 MG TAB 1 tab by mouth daily 60 minutes before bedtime AMITRIPTYLINE HCL 92346259686 No Longer Active Shola MCGILL Active LORTAB 5 5-500 MG TABS 1/2 to 1 tablet by mouth go ry 6 hours as needed for pain HYDROCODONE-ACETAMINOPHEN 42204972816 No Longer Active Shola MCGILL Active CEPHALEXIN 500 MG TABS Take one by mouth four times daily, morning, noon, early evening and bedtime. CEPHALEXIN 41139811626 No Long er Active Hira Moser APRN Active TYLENOL/CODEINE #3 300-30 MG TAB 1-2 po q6hr PRN Pain ACETAMINOPHEN-CODEINE 96909489789 No Longer Active Edilberto Marino DO Active PRISTIQ 50 MG [id number] 1 po qd DESVENLAFAXI NE SUCCINATE 61840562252 No Longer Active Edilberto Marino DO Active PENICILLIN V POTASSIUM 500 MG TAB 1 four times a day 2 PENICILLIN V POTASSIUM 95604683033 No Longer Active Edilberto Marino DO Active DOXYCYCLINE HYCLATE 100 MG CAPS Take one (1) tablet by mouth twice a day DOXYCYCLINE HYCLATE 61017922681 No Longer Active Ronnie Galvan MD Active HYDROCODONE-ACETAMINOPHEN 5-325 MG TABS 1 po q 6hr PRN Pain 2011 HYDROCODONE-ACETAMINOPHEN 41310774635 No Longer Active Jerson Perez RN Active BACTRIM DS 800-160 MG TAB 1 tab by mouth twice daily 2 TRIMETHOPRIM-SULFAMETHOXAZOLE 04110914690 No Longer Active Kalpesh Dong MD Active LORTAB 5 5-500 MG TABS 1/2 to 1 tablet by mouth go ry 4 hours as needed for pain HYDROCODONE-ACETAMINOPHEN 35675100976 No Longer Active Kalpesh Dong MD Active GENERESS FE 0.8-25 MG-MCG CHEW Take one by mouth daily NORETHIN-ETH ESTRADIOL-FE 31325872327 No Longer Active Kalpesh Dong MD Active HYDROCODONE-ACETAMINOPHEN 7.5-500 MG TABS 1-2 every 4 hours as needed HYDROCODONE-ACETAMINOPHEN 42879038099 No Longer Activ e Kalpesh Dong MD Active FERROUS SULFATE 325 (65 FE) MG TABS 1 tablet by mouth twice yung y FERROUS SULFATE 54652906270 No Longer Active Kalpesh Dong MD Active IBUPROFEN 600 MG TAB 1 po q6-8hr PRN IBUPROFEN 00749887234 No Longer Active Kalpesh Dong MD Active SPIRONOLACTONE 25 MG TAB 1 tablet by mouth daily 01/22 SPIRONOLACTONE 37129424260 No Longer Active Kalpesh Dong MD Acti ve HYDROCODONE-ACETAMINOPHEN 7.5-325 MG TABS 1 po QID PRN Pain 2011 HYDROCODONE-ACETAMINOPHEN 42044199644 No Longer Active Kalpesh Dong MD Active CLINDAMYCIN HCL 300 MG CAPS 1 po q6hr x 7 days CLINDAMYCIN HCL 13408830809 No Longer Active Edilberto Marino DO Active PREDNISONE 20 MG TAB 2 tabs daily for 4 days, 1 t ab daily for 4 days, 1/2 tab daily for 4 days PREDNISONE 47740541447 No Longer Active Edilberto Marino DO Active PERCOCET 5-325 MG TABS 1 tablet by mouth every 6 hours as ne eded for pain OXYCODONE-ACETAMINOPHEN 84907426365 No Longer Active Abdirahman Rios MD Active VITAMINS TABS Take one by mouth daily MV & MIN W/FE-FA TABS 15843994458 No Longer Active Abdirahman Rios MD Active LUIS 3-0.02 MG TABS 1 tablet by mouth daily as directed DROSPIRENONE-ETHINYL ESTRADIOL 94425185240 No Longer Active Abdirahman Rios MD Active LORATADINE 10 MG TABS 1 tablet by mouth daily L ORATADINE 36278792556 No Longer Active Kalpesh Dong MD Active HYDROCODONE-ACETAMINOPHEN 5-325 MG TABS 1 po q 6hr PRN Pain 2010 HYDROCODONE-ACETAMINOPHEN 21825502334 No Longer Active Edilberto Marino DO Active BACTRIM DS 800-160 MG TAB 1 tab by mouth twice daily 2 TRIMETHOPRIM-SULFAMETHOXAZOLE 40412142658 No Longer Active Abdirahman Rios MD Active 28-0.8 MG TABS Take one by mouth daily 09/20 VIT-FE FUMARATE-FA 79550843139 No Longer Active Abdirahman Rios MD Active CIPRO 500 MG TAB 1 tablet by mouth twice daily CIPROFLOXACIN HCL 44509686950 No Longer Active Abdirahman Rios MD Active BENADRYL 25 MG CAP 1 po q8hr PRN Congestion DIPHENHYDRAMINE HCL 23181672189 No Longer Active Abdirahman Rios MD Active ZOLOFT 50 MG TAB 1 po qd SERTRALINE HCL 967481 57147 No Longer Active Abdirahman Rios MD Active AMOXICILLIN 875 MG TABS 1 tab by mouth twice daily 201 08/09/13 AMOXICILLIN 52285182085 No Longer Active Abdirahman Rios MD Activ e AMOXICILLIN 875 MG TABS 1 tab by mouth twice daily 201 07/19/27 AMOXICILLIN 57749022580 No Longer Active Abdirahman Rios MD Activ e BACTRIM DS 800-160 MG TAB 2 tab by mouth twice daily 2 TRIMETHOPRIM-SULFAMETHOXAZOLE 05663488123 No Longer Active Abdirahman Rios MD Active KEFLEX 500 MG CAP 1 po tid x 10 days CEPHALEXIN 69878032452 No Longer Active Abdirahman Rios MD Active AMOXICILLIN 875 MG TABS 1 tab by mouth twice daily 201 07/18/07 AMOXICILLIN 91829687295 No Longer Active Abdirahman Rios MD Activ e BACTRIM DS 800-160 MG TAB 2 tab by mouth twice daily 2 BACTRIM DS 800-160 MG TAB TRIMETHOPRIM-SULFAMETHOXAZOLE Inactive ZOLOFT 50 MG TAB 1 po qd ZOLOFT 50 MG TAB 3129 41 SERTRALINE HCL Inactive BENADRYL 25 MG CAP 1 po q8hr PRN Congestion BENADRYL 25 MG CAP 0937173 DIPHENHYDRAMINE HCL Inactive 28-0.8 MG TABS Take one by mouth daily 09/20 28-0.8 MG TABS VIT-FE FUMARATE-FA Inactive HYDROCODONE-ACETAMINOPHEN 5-325 MG TABS 1 po q 6hr PRN Pain 2010 HYDROCODONE-ACETAMINOPHEN 5-325 MG TABS 122092 HYDROCODONE-ACETAMINOPHEN Inactive LORATADINE 10 MG TABS 1 tablet by mouth daily LORATADINE 10 MG TABS 498141 LORATADINE Inactive LUIS 3-0.02 MG TABS 1 tablet by mouth daily as directed LUIS 3-0.02 MG TABS DROSPIRENONE-ETHINYL ESTRADIOL Inactive VITAMINS TABS Take one by mouth daily VITAMINS TABS MV & MIN W/FE-FA TABS Inactive PERCOCET 5-325 MG TABS 1 tablet by mouth every 6 hours as ne eded for pain PERCOCET 5-325 MG TABS 0205123 OXYCODONE-ACETAMIN OPHEN Inactive PREDNISONE 20 MG TAB 2 tabs daily for 4 days, 1 t ab daily for 4 days, 1/2 tab daily for 4 days PREDNISONE 20 MG TAB 979849 PREDNISON E Inactive CLINDAMYCIN HCL 300 MG CAPS 1 po q6hr x 7 days CLINDAMYCIN HCL 300 MG CAPS 371292 CLINDAMYCIN HCL Inactive HYDROCODONE-ACETAMINOPHEN 7.5-325 MG TABS 1 po QID PRN Pain 2011 HYDROCODONE-ACETAMINOPHEN 7.5-325 MG TABS 351032 HYDROCODONE-ACETAMINOPHEN Inactive SPIRONOLACTONE 25 MG TAB 1 tablet by mouth daily 01/22 SPIRONOLACTONE 25 MG TAB 988604 SPIRONOLACTONE Inactive IBUPROFEN 600 MG TAB 1 po q6-8hr PRN IBUPROFEN 600 MG TAB 702154 IBUPROFEN Inactive FERROUS SULFATE 325 (65 FE) MG TABS 1 tablet by mouth twice yung y FERROUS SULFATE 325 (65 FE) MG TABS 083684 FERROUS SULF ATE Inactive HYDROCODONE-ACETAMINOPHEN 7.5-500 MG [...] PRN Pain 2011 HYDROCODONE-ACETAMINOPHEN 5-325 MG TABS 447969 HYDROCODONE-ACETAMINOPHEN Inactive DOXYCYCLINE HYCLATE 100 MG CAPS Take one (1) tablet by mouth twice a day DOXYCYCLINE HYCLATE 100 MG CAPS 534404 DOXYCYCLINE HYCLATE Inactive PENICILLIN V POTASSIUM 500 MG TAB 1 four times a day 2 PENICILLIN V POTASSIUM 500 MG TAB 839342 PENICILLIN V POTASSIUM Siri ctive PRISTIQ 50 MG [id number] 1 po qd PRISTIQ 50 MG [id number] DESVENLAFAXINE SUCCINATE Inactive TYLENOL/CODEINE #3 300-30 MG TAB 1-2 po q6hr PRN Pain TYLENOL/CODEINE #3 300-30 MG TAB 501156 ACETAMINOPHEN-CODEINE Inact krishna CEPHALEXIN 500 MG TABS Take one by mouth four times daily, morning, noon, early evening and bedtime. CEPHALEXIN 500 MG TABS 788982 CEPHALEXIN Inactive LORTAB 5 5-500 MG TABS 1/2 to 1 tablet by mouth go ry 6 hours as needed for pain LORTAB 5 5-500 MG TABS HYDROCODONE-A CETAMINOPHEN Inactive AMITRIPTYLINE HCL 25 MG TAB 1 tab by mouth daily 60 minutes before bedtime AMITRIPTYLINE HCL 25 MG TAB 979655 AMITRIPTYLINE HCL Inactive AMOXICILLIN 500 MG TABS 2 tabs PO bid x 10 d 7 AMOXICILLIN 500 MG TABS 472215 AMOXICILLIN Inactive IMPLANON 68 MG IMPL IMPLANTED IN LEFT ARM IMPLANON 68 MG IMPL ETONOGESTREL Inactive HYDROCODONE-ACETAMINOPHEN 5-325 MG TABS 1 PO tid PRN pain 5 HYDROCODONE-ACETAMINOPHEN 5-325 MG TABS 957407 HYDROCODONE-ACETAMIN OPHEN Inactive BACTRIM DS 800-160 MG TAB 1 tab by mouth twice daily 2 BACTRIM DS 800-160 MG TAB TRIMETHOPRIM-SULFAMETHOXAZOLE Inac tive CEPHALEXIN 500 MG CAPS 1 PO bid x 7 days CEPHALEXIN 500 MG CAPS 526542 CEPHALEXIN Inactive HYDROCODONE-ACETAMINOPHEN 5-325 MG TABS 1 tab by mouth every 6 hours as needed HYDROCODONE-ACETAMINOPHEN 5-325 MG TABS 223926 HYDROCODONE-ACETAMINOPHEN Inactive PROMETHAZINE-CODEINE 6.25-10 MG/5ML SYRP 1 tsp every 6 hrs prn c ough PROMETHAZINE-CODEINE 6.25-10 MG/5ML SYRP 758629 PROMETH AZINE-CODEINE Inactive IBUPROFEN 800 MG TAB 1 pill three times daily as needed for pain IBUPROFEN 800 MG TAB 908252 IBUPROFEN Inactive KEFLEX 500 MG CAP 1 tab po tid KEFLEX 500 MG CAP 058748 CEPHALEXIN Inactive HYDROCODONE-ACETAMINOPHEN 7.5-325 MG TABS 1 four times a day as needed for pain HYDROCODONE-ACETAMINOPHEN 7.5-325 MG TABS 039100 HYDROCODONE-ACETAMINOPHEN Inactive BACTRIM DS 800-160 MG TABS by mouth twice a day 11/05 BACTRIM DS 800-160 MG TABS SULFAMETHOXAZOLE-TRIMETHOPRIM Inactive IBUPROFEN 800 MG TABS 1 tid prn IBUPROFEN 800 MG TABS 246871 IBUPROFEN Inactive ENDOCET 10-325 MG TABS 1 q 6 hr prn ENDOC ET 10-325 MG TABS 2997420 OXYCODONE-ACETAMINOPHEN Inactive HYDROCODONE-ACETAMINOPHEN 7.5-325 MG TABS 1 by mouth e very 6 hours as needed for pain HYDROCODONE-ACETAMINOPHEN 7.5-325 MG TABS 257276 HYDROCODONE-ACETAMINOPHEN Inactive PERCOCET 7.5-325 MG TABS 1 PO q 8 hrs PRN pain PERCOCET 7.5-325 MG TABS 4619662 OXYCODONE-ACETAMINOPHEN Inactive LIDODERM 5 % PTCH One patch to painful area [place] N. On for 12 hrs, off for 12 hrs. LIDODERM 5 % PTCH 5698834 LIDOCAINE Inactiv e PERCOCET 7.5-325 MG TABS 1 PO tid PRN pain PERCOCET 7.5- 325 MG TABS 7585713 OXYCODONE-ACETAMINOPHEN Inactive MOBIC 15 MG TABS 1 tab daily MOBIC 15 MG TABS 15 2695 MELOXICAM Inactive CYCLOBENZAPRINE HCL 10 MG TABS 1/2 - 1 tab PO tid PRN back p ain, muscle spasm CYCLOBENZAPRINE HCL 10 MG TABS 344932 CYCLOBENZA JOSEPH HCL Inactive LORATADINE 10 MG TABS 1 tablet by mouth daily LORATADINE 10 MG TABS 213358 LORATADINE Inactive HYDROCODONE-ACETAMINOPHEN 10-325 MG TABS 1 by mouth ev chaka 8 hours as needed for pain HYDROCODONE-ACETAMINOPHEN 10-325 MG TABS 885681 HYDROCODONE-ACETAMINOPHEN Inactive LC-5 LIDOCAINE 5 % CREA apply 1 time daily to affected area 2013 LC-5 LIDOCAINE 5 % CREA LIDOCAINE (ANORECTAL) In active PERCOCET 5-325 MG TAB 1 every 6 hours as needed PERCOCET 5-325 MG TAB 3759006 OXYCODONE-ACETAMINOPHEN Inactive KEFLEX 500 MG CAP 1 po qid KEFLEX 500 MG CAP 30 9114 CEPHALEXIN Inactive AMOXICILLIN 875 MG TABS 1 tab by mouth twice daily 201 07/18/07 AMOXICILLIN 875 MG TABS 162314 AMOXICILLIN Inactive KEFLEX 500 MG CAP 1 po tid x 10 days KEFLEX 500 MG CAP 546768 CEPHALEXIN Inactive AMOXICILLIN 875 MG TABS 1 tab by mouth twice daily 201 07/19/27 AMOXICILLIN 875 MG TABS 657502 AMOXICILLIN Inactive AMOXICILLIN 875 MG TABS 1 tab by mouth twice daily 201 08/09/13 AMOXICILLIN 875 MG TABS 880802 AMOXICILLIN Inactive CIPRO 500 MG TAB 1 tablet by mouth twice daily CIPRO 500 MG TAB 327261 CIPROFLOXACIN HCL Inactive BACTRIM DS 800-160 MG TAB 1 tab by mouth twice daily 2 BACTRIM DS 800-160 MG TAB TRIMETHOPRIM-SULFAMETHOXAZOLE Inac tive LEVAQUIN 500 MG TABS 1 PO q day x 7 days LEVAQUIN 500 MG TABS 956505 LEVOFLOXACIN Inactive CLINDAMYCIN HCL 300 MG CAPS 1 po QID x 7 days CLINDAMYCIN HCL 300 MG CAPS 757337 CLINDAMYCIN HCL Inactive AUGMENTIN 875-125 MG TAB 1 tab by mouth twice daily with food 22/05/07 AUGMENTIN 875-125 MG TAB 325861 AMOXICILLIN-POT CLAVULA [place] Inactive DIFLUCAN 150 MG TAB 1 qODay x 2 doses DIFLUCAN 150 MG TAB 985776 FLUCONAZOLE Inactive Advance Directives Directive Description Start Date PERMISSION TO SHARE Immunizations Vaccine Administration Date Value Standard Alf cription Seasonal influenza vaccine, injectable, containing preservative, for > 3 years old (Afluria, FluLaval, Fluzone, Fluvirin, Fluarix, Agriflu(>= 18 yo)) Fluzone (>3 yrs.) [[id number]] Influenza, seasonal, inject able Seasonal influenza vaccine, injectable, preservative free, for > 3 years old (Afluria, FluLaval, Fluzone, Fluvirin, Fluarix, Agriflu(>= 18 yo)) Fluzone preservative free (>3 yrs.) [[id number]] Influenza, seasonal, injectable, preservative free Seasonal influenza vaccine, injectable, containing preservative, for > 3 years old (Afluria, FluLaval, Fluzone, Fluvirin, Fluarix, Agriflu(>= 18 yo)) Fluzone (>3 yrs.) [[id number]] Influenza, seasonal, inject able Seasonal influenza vaccine, injectable, containing preservative, for > 3 years old (Afluria, FluLaval, Fluzone, Fluvirin, Fluarix, Agriflu(>= 18 yo)) Fluzone (>3 yrs.) [[id number]] Influenza, seasonal, inject able dT (Diphtheria and Tetanus) booster given Histor ica Td(adult) unspecified formulation Vital Signs Date Name Value Unit Range Description blood pressure, diastolic - 8462-4 73 mm[Hg] [...] ... - Chemistry sodium, serum 140 mmol/L 039-889 2956/02/24 potassium, serum 4.3 mmol/L 3.5-5.2 chloride, serum [...] 4.3-6.0 Lab Report: T3, TOTAL, INSULIN - Sales Professional Bilingual ry triiodothyronine (T3), serum 78 ng/dL 76-181 Office Visit: low blood sugars - Chemis try cholesterol, target level 200 mg/dL triglyceride, target level 200 mg/dL HDL cholesterol, serum, target level 35 mg/dL LDL target level 100 mg/dL Encounters Code Encounter Date Provider Facility CPT-54118 Level 4 Est. Patient 14:37:38 JIG BORE TOOL MAKER Abdirahman Rios MD [facility] CPT-52456 Level 2 Est. Patient 13:32:17 JIG BORE TOOL MAKER Kalpesh goins MD [facility] CPT-60935 Level 3 Est. Patient 17:32:57 JIG BORE TOOL MAKER Edilberto tiwari DO [facility] CPT-59984 Level 3 Est. Patient 17:22:33 JIG BORE TOOL MAKER Edilberto tiwari DO [facility] CPT-24857 Level 2 Est. Patient 16:57:09 JIG BORE TOOL MAKER Kalpesh goins MD [facility] CPT-97706 Level 3 Est. Patient 14:03:08 JIG BORE TOOL MAKER Abdirahman Rios MD [facility] CPT-86459 Level 3 Est. Patient 18:12:34 CDT Shola Wright [facility] CPT-27474 Level 3 Est. Patient 19:34:46 CDT Shola Wright [facility] CPT-05671 Level 3 Est. Patient 14:19:37 CDT Abdirahman Rios MD [facility] CPT-28687 Level 3 Est. Patient 14:11:58 CDT Kalpesh goins MD [facility] CPT-14107 Level 3 Est. Patient 16:50:00 [facility] Level 3 Est. Patient 17:11:32 JIG BORE TOOL MAKER Brandie bates MD PhD [facility] CPT-44604 Level 3 Est. Patient 16:31:47 JIG BORE TOOL MAKER Shola Wright [facility] CPT-49387 Level 3 Est. Patient 17:51:10 JIG BORE TOOL MAKER Abhinav Galvan MD [facility] CPT-32566 Level 4 Est. Patient 12:54:56 JIG BORE TOOL MAKER Kalpesh goins MD [facility] CPT-16124 Level 4 Est. Patient 12:53:56 JIG BORE TOOL MAKER Kalpesh goins MD [facility]-78620 Level 3 Est. Patient 17:56:58 CDT Shola Wright [facility] CPT-87618 Level 3 Est. Patient 14:26:20 CDT Janak butcher [facility] CPT-06722 Level 3 Est. Patient 09:38:41 CDT Shola MCGILL [facility] CPT-01134 Level 3 Est. Patient 14:45:26 CDT Edilberto tiwari [facility] CPT-47090 Level 3 Est. Patient 10:51:33 [facility] Level 3 Est. Patient 11:57:55 JIG BORE TOOL MAKER Shola MCGILL [facility] CPT-81633 Level 3 Est. Patient 09:53:33 JIG BORE TOOL MAKER Edilberto tiwari [facility] CPT-59072 Level 3 Est. Patient 14:42:54 JIG BORE TOOL MAKER Abhinav Galvan MD [facility] CPT-07615 Level 3 Est. Patient 15:10:02 CDT Janak Stevenamira guadalupe [facility] CPT-08498 Level 3 Est. Patient 15:20:20 CDT Theo dennis MD [facility] CPT-86767 Level 2 Est. Patient 14:08:57 CDT Kalpesh goins MD [facility] CPT-92516 Level 3 Est. Patient 13:56:19 CDT Abdirahman Rios MD [facility] CPT-74698 Level 3 Est. Patient 13:59:37 CDT Abdirahman Rios MD [facility] CPT-00658 Level 2 Est. Patient 14:44:59 CDT Kalpesh goins MD [facility] CPT-78983 Level 3 Est. Patient 06:06:23 CDT Edilberto tiwari [facility] CPT-95655 Level 3 Est. Patient 15:23:54 CDT Abdirahman Rios MD [facility] CPT-43062 Level 3 Est. Patient 15:43:49 CDT Abdirahman Rios MD [facility] CPT-67256 Level 3 Est. Patient 12:46:47 JIG BORE TOOL MAKER Abdirahman Rios MD [facility] CPT-50804 Level 3 Est. Patient 08:13:35 JIG BORE TOOL MAKER Abdirahman Rios MD [facility] CPT-72362 Level 2 Est. Patient 09:36:42 JIG BORE TOOL MAKER Abdirahman Rios MD [facility] CPT-42986 Level 3 Est. Patient 10:56:43 CDT Abdirahman Rios MD [facility] CPT-73384 Level 3 Est. Patient 18:24:52 CDT Abdirahman Rios MD [facility] CPT-45554 Level 3 Est. Patient 13:27:22 CDT Abdirahman Rios MD [facility] Procedures Code Procedure Name Date Entry Date Standard Desc ription CPT-J0696 Rocephin 1000 mg (Ceftriaxone) 17:22:33 JIG BORE TOOL MAKER CPT-11287 Postop F/U Visit 18:41:07 JIG BORE TOOL MAKER CPT-43835 Postop F/U Visit 08:19:08 JIG BORE TOOL MAKER CPT-27855 Immunization Single Admin 16:41:53 CDT 2013 CPT-60843 Fluzone Quadrivalent Intramuscular Suspe nsion 0.5 ML 16:41:53 CDT CPT-OV Office Visit 16:39:18 CDT CPT-OV Office Visit 16:16:36 CDT CPT-OV Office Visit 15:34:48 CDT CPT-31765 Postop F/U Visit 14:50:12 CDT CPT-80242 Postop F/U Visit 14:41:10 CDT CPT-74080 Venipuncture Draw Fee 11:38:04 JIG BORE TOOL MAKER CPT-91740 Postop F/U Visit 19:02:59 JIG BORE TOOL MAKER CPT-11147 Postop F/U Visit 12:04:54 JIG BORE TOOL MAKER CPT-29926 Administration single or combination vac cine inc oral 15:56:43 CDT CPT-52614 Influenza split virus > age 3 15:56:43 CDT CPT-86348 Hand comp min 3V 14:25:19 CDT CPT-12724 Postop F/U Visit 21:40:51 CDT CPT-96319 Postop F/U Visit 10:58:43 CDT CPT-08765 Administration single or combination vac cine inc oral 12:33:54 JIG BORE TOOL MAKER CPT-52131 Influenza Preservative Free split virus >age 3 12:33:54 JIG BORE TOOL MAKER CPT-40754 Administration single or combination vac cine inc oral 09:30:51 CDT CPT-57917 Influenza split virus > age 3 09:30:51 CDT CPT-74427 Postop F/U Visit 15:14:53 CDT CPT-64094 Postop F/U Visit 13:50:14 CDT CPT-20013 Postop F/U Visit 13:34:52 CDT CPT-OV Office Visit 16:55:03 CDT CPT-86264 [place] of cervix w bx ECC 13:32:50 CDT 10/19 CPT-J1885 Toradol 60 mg (Ketorolac) 15:31:59 CDT 2011 CPT-J1885 Toradol 60 mg (Ketorolac) 15:23:54 CDT 2011 CPT-80812 Visit 11:34:37 [employer] CPT-70817 Visit 10:52:39 [employer] CPT-16421 Visit 10:12:02 [employer] CPT-17230 Visit 11:22:43 [employer] CPT-90786 Visit 11:24:12 [employer] CPT-97302 Visit 10:47:05 [employer] CPT-OV Office Visit 10:26:16 [employer] CPT-OV Office Visit 15:34:31 [employer] CPT-83783 Visit 10:42:08 [employer] CPT-49561 Visit 10:52:45 [employer] CPT-000 Give Appropriate Flu Vaccine 16:56:41 CDT 2 CPT-81470 Administration single or combination vac cine inc oral 10:33:21 CDT CPT-51011 Influenza split virus > age 3 10:33:21 CDT CPT-34552 Visit 13:23:09 CDT CPT-20660 Visit 18:24:52 CDT CPT-75460 Sono OB comp > 14 weeks 12:07:49 CDT 04/07
--- OUTSIDE RECORDS SUMMARY | 2020-01-18 16:56 | XMS REPORT | Clinical Summary ---
Author Author Admin, Jeri Rashid Organization [facility] Address Unknown Phone Unavailable Allergies, Adverse [...] abscess of trunk SINUSITIS, ACUTE 461.9 Resolved Abidrahman Rios MD Acute sinusitis, unspecified BACK PAIN [...] 1 every 4 hours as needed OXYCODONE-ACETAMINOPHEN 16496927840 Active Kalpseh Dong MD Active PROAIR HFA 108 (90 BASE) MCG/ACT AERS 2 puff q 4-6 hrs PRN 01/24 ALBUTEROL SULFATE 70032527504 No Longer Active Kalpesh Dong MD Active ALPRAZOLAM 0.5 MG TABS 1 po BID PRN Anxiety ALPRA ZOLAM 30425427898 Active Abdirahman Rios MD Active EMLA 2.5-2.5 % EXT CREA apply to skin lesion q 6 hours, prn LIDOCAINE-PRILOCAINE 79099944813 Active Hira Moser APRN Active CYCLOBENZAPRINE HCL 10 MG TABS 1 tablet by mouth three times daily as needed for muscle spasm/pain CYCLOBENZAPRINE HCL 90658856068 Active Abdirahman Rios MD Active PREDNISONE 20 MG TAB 2 tabs daily for 3 days, 1 t ab daily for 3 days, 1/2 tab daily for 2 days PREDNISONE 15015333364 No Longer Active Abdirahman Rios MD Active KEFLEX 500 MG CAP 1 po qid CEPHALEXIN 318250788 20 No Longer Active Kalpesh Dong MD Active PERCOCET 5-325 MG TAB 1 every 6 hours as needed OXYCODONE-ACETAMINOPHEN 51427999485 No Longer Active Shola MCGILL Active LC-5 LIDOCAINE 5 % CREA apply 1 time daily to affected area 2013 LIDOCAINE (ANORECTAL) 70969158384 No Longer Active Hira muniz APRN Active HYDROCODONE-ACETAMINOPHEN 5-325 MG TABS 2 tablets by m outh every 8 hours as needed for pain HYDROCODONE-ACETAMINOPHEN 29472977123 Acti ve Abdirahman Rios MD Active HYDROCODONE-ACETAMINOPHEN 10-325 MG TABS 1 by mouth ev chaka 8 hours as needed for pain HYDROCODONE-ACETAMINOPHEN 92223935401 No Longer Active Hira Moser APRN Active LORATADINE 10 MG TABS 1 tablet by mouth daily L ORATADINE 59900625902 No Longer Active Hira Moser APRN Active DIFLUCAN 150 MG TAB 1 qODay x 2 doses FLUCONAZO LE 53837003638 No Longer Active Jillina Joyzell GRIEF COUNSELOR Active CYCLOBENZAPRINE HCL 10 MG TABS 1/2 - 1 tab PO tid PRN back p ain, muscle spasm CYCLOBENZAPRINE HCL 94923413505 No Longer Active Karen herson Frazell GRIEF COUNSELOR Active AUGMENTIN 875-125 MG TAB 1 tab by mouth twice daily with food 20 22/05/07 AMOXICILLIN-POT CLAVULANATE 16242076993 No Longer Active Loida Rios MD Active MOBIC 15 MG TABS 1 tab daily MELOXICAM 646160739 14 No Longer Active Abdirahman Rios MD Active PERCOCET 7.5-325 MG TABS 1 PO tid PRN pain OXYCODONE-ACETAMINOPHEN 86776635547 No Longer Active Abdirahman Rios MD Active LIDODERM 5 % PTCH One patch to painful area [place] N. On for 12 hrs, off for 12 hrs. LIDOCAINE 63172209695 No Longer Active Abdirahman Rios MD Active PERCOCET 7.5-325 MG TABS 1 PO q 8 hrs PRN pain OXYCODONE-ACETAMINOPHEN 53723146396 No Longer Active Shola MCGILL Active HYDROCODONE-ACETAMINOPHEN 7.5-325 MG TABS 1 by mouth e very 6 hours as needed for pain HYDROCODONE-ACETAMINOPHEN 70983380795 No Longer Active Good Julian MD Active CLINDAMYCIN HCL 300 MG CAPS 1 po QID x 7 days CLINDAMYCIN HCL 44288779485 No Longer Active Abdirahman Rios MD Activ e BACTRIM DS 800-160 MG TABS 1 po BID x 7 days 5 SULFAMETHOXAZOLE-TRIMETHOPRIM 93101732460 No Longer Active Abdirahman Rios MD Active ENDOCET 10-325 MG TABS 1 q 6 hr prn OXYCODONE-ACETAMINOPHEN 39121015037 No Longer Active Abdirahman Rios MD Active IBUPROFEN 800 MG TABS 1 tid prn IBUPROFEN 127915 97125 No Longer Active Abdirahman Rios MD Active BACTRIM DS 800-160 MG TABS by mouth twice a day 11/05 SULFAMETHOXAZOLE-TRIMETHOPRIM 37440645712 No Longer Active Good Julian MD Active HYDROCODONE-ACETAMINOPHEN 7.5-325 MG TABS 1 four times a day as needed for pain HYDROCODONE-ACETAMINOPHEN 55328705106 No Longer Activ e Good Julian MD Active KEFLEX 500 MG CAP 1 tab po tid CEPHALEXIN 605345 35791 No Longer Active Matthewllina Shanti RIVAS Active IBUPROFEN 800 MG TAB 1 pill three times daily as needed for pain IBUPROFEN 73692453788 No Longer Active Kalpesh Dong MD Active PROMETHAZINE-CODEINE 6.25-10 MG/5ML SYRP 1 tsp every 6 hrs prn c ough PROMETHAZINE-CODEINE 68902252410 No Longer Active Kalpesh Carr Active HYDROCODONE-ACETAMINOPHEN 5-325 MG TABS 1 tab by mouth every 6 hours as needed HYDROCODONE-ACETAMINOPHEN 90699389424 No Longer Activ e Shola MCGILL Active CEPHALEXIN 500 MG CAPS 1 PO bid x 7 days CEPHAL EXIN 86323002771 No Longer Active Shola MCGILL Active BACTRIM DS 800-160 MG TAB 1 tab by mouth twice daily 2 TRIMETHOPRIM-SULFAMETHOXAZOLE 37226432294 No Longer Active Kalpesh Dong MD Active HYDROCODONE-ACETAMINOPHEN 5-325 MG TABS 1 PO tid PRN pain 5 HYDROCODONE-ACETAMINOPHEN 29179569570 No Longer Active Abhinav Galvan MD Active IMPLANON 68 MG IMPL IMPLANTED IN LEFT ARM ETONO GESTREL 63843364702 No Longer Active Jillina Shanti ANDRADEN Active AMOXICILLIN 500 MG TABS 2 tabs PO bid x 10 d AM OXICILLIN 09137676142 No Longer Active Kalpesh Dong MD Active LEVAQUIN 500 MG TABS 1 PO q day x 7 days LEVOFL OXACIN 72080128267 No Longer Active Shola MCGILL Active FIORICET 50-325-40 MG TABS 2 PO q 8 hrs PRN FOSTER [id number] Active Abdirahman Rios MD Active AMITRIPTYLINE HCL 25 MG TAB 1 tab by mouth daily 60 minutes before bedtime AMITRIPTYLINE HCL 53595494589 No Longer Active Shola MCGILL Active LORTAB 5 5-500 MG TABS 1/2 to 1 tablet by mouth go ry 6 hours as needed for pain HYDROCODONE-ACETAMINOPHEN 40280626551 No Longer Active Shola MCGILL Active CEPHALEXIN 500 MG TABS Take one by mouth four times daily, morning, noon, early evening and bedtime. CEPHALEXIN 04195364667 No Long er Active Hira Moser APRN Active TYLENOL/CODEINE #3 300-30 MG TAB 1-2 po q6hr PRN Pain ACETAMINOPHEN-CODEINE 86515881005 No Longer Active Edilberto Marino DO Active PRISTIQ 50 MG [id number] 1 po qd DESVENLAFAXI NE SUCCINATE 02362330782 No Longer Active Edilberto Marino DO Active PENICILLIN V POTASSIUM 500 MG TAB 1 four times a day 2 PENICILLIN V POTASSIUM 77725151557 No Longer Active Edilberto Marino DO Active DOXYCYCLINE HYCLATE 100 MG CAPS Take one (1) tablet by mouth twice a day DOXYCYCLINE HYCLATE 36182567077 No Longer Active Ronnie Galvan MD Active HYDROCODONE-ACETAMINOPHEN 5-325 MG TABS 1 po q 6hr PRN Pain 2011 HYDROCODONE-ACETAMINOPHEN 10190120601 No Longer Active Patri joan Lock RN Active BACTRIM DS 800-160 MG TAB 1 tab by mouth twice daily 2 TRIMETHOPRIM-SULFAMETHOXAZOLE 69052369638 No Longer Active Kalpesh Dong MD Active LORTAB 5 5-500 MG TABS 1/2 to 1 tablet by mouth go ry 4 hours as needed for pain HYDROCODONE-ACETAMINOPHEN 61193318676 No Longer Active Kalpesh Dong MD Active GENERESS FE 0.8-25 MG-MCG CHEW Take one by mouth daily NORETHIN-ETH ESTRADIOL-FE 10744725396 No Longer Active Kalpesh Dong MD Active HYDROCODONE-ACETAMINOPHEN 7.5-500 MG TABS 1-2 every 4 hours as needed HYDROCODONE-ACETAMINOPHEN 65307078167 No Longer Activ e Kalpesh Dong MD Active FERROUS SULFATE 325 (65 FE) MG TABS 1 tablet by mouth twice yung y FERROUS SULFATE 19999609673 No Longer Active Kalpesh Dong MD Active IBUPROFEN 600 MG TAB 1 po q6-8hr PRN IBUPROFEN 26471197512 No Longer Active Kalpesh Dong MD Active SPIRONOLACTONE 25 MG TAB 1 tablet by mouth daily 01/22 SPIRONOLACTONE 82767763290 No Longer Active Kalpesh Dong MD Acti ve HYDROCODONE-ACETAMINOPHEN 7.5-325 MG TABS 1 po QID PRN Pain 2011 HYDROCODONE-ACETAMINOPHEN 76186726048 No Longer Active Kalpesh Dong MD Active CLINDAMYCIN HCL 300 MG CAPS 1 po q6hr x 7 days CLINDAMYCIN HCL 01114659152 No Longer Active Edilberto Marino DO Active PREDNISONE 20 MG TAB 2 tabs daily for 4 days, 1 t ab daily for 4 days, 1/2 tab daily for 4 days PREDNISONE 67614061807 No Longer Active Edilberto Marino DO Active PERCOCET 5-325 MG TABS 1 tablet by mouth every 6 hours as ne eded for pain OXYCODONE-ACETAMINOPHEN 86542652892 No Longer Active Abdirahman Rios MD Active VITAMINS TABS Take one by mouth daily MV & MIN W/FE-FA TABS 86838527072 No Longer Active Abdirahman Rios MD Active LUIS 3-0.02 MG TABS 1 tablet by mouth daily as directed DROSPIRENONE-ETHINYL ESTRADIOL 51196847686 No Longer Active Abdirahman Rios MD Active LORATADINE 10 MG TABS 1 tablet by mouth daily L ORATADINE 92988511167 No Longer Active Kalpesh Dong MD Active HYDROCODONE-ACETAMINOPHEN 5-325 MG TABS 1 po q 6hr PRN Pain 2010 HYDROCODONE-ACETAMINOPHEN 06924440587 No Longer Active Edilberto Marino DO Active BACTRIM DS 800-160 MG TAB 1 tab by mouth twice daily 2 TRIMETHOPRIM-SULFAMETHOXAZOLE 97102152056 No Longer Active Abdirahman Rios MD Active 28-0.8 MG TABS Take one by mouth daily 09/20 VIT-FE FUMARATE-FA 44235626678 No Longer Active Abdirahman Rios MD Active CIPRO 500 MG TAB 1 tablet by mouth twice daily CIPROFLOXACIN HCL 32866763109 No Longer Active Abdirahman Rios MD Active BENADRYL 25 MG CAP 1 po q8hr PRN Congestion DIPHENHYDRAMINE HCL 77788821534 No Longer Active Abdirahman Rios MD Active ZOLOFT 50 MG TAB 1 po qd SERTRALINE HCL 504342 83593 No Longer Active Abdirahman Rios MD Active AMOXICILLIN 875 MG TABS 1 tab by mouth twice daily 201 08/09/13 AMOXICILLIN 61340222099 No Longer Active Abdirahman Rios MD Activ e AMOXICILLIN 875 MG TABS 1 tab by mouth twice daily 201 07/19/27 AMOXICILLIN 31090460591 No Longer Active Abdirahman Rios MD Activ e BACTRIM DS 800-160 MG TAB 2 tab by mouth twice daily 2 TRIMETHOPRIM-SULFAMETHOXAZOLE 69243869279 No Longer Active Abdirahman Rios MD Active KEFLEX 500 MG CAP 1 po tid x 10 days CEPHALEXIN 20665227946 No Longer Active Abdirahman Rios MD Active AMOXICILLIN 875 MG TABS 1 tab by mouth twice daily 201 07/18/07 AMOXICILLIN 73314384294 No Longer Active Abdirahman Rios MD Activ e BACTRIM DS 800-160 MG TAB 2 tab by mouth twice daily 2 BACTRIM DS 800-160 MG TAB TRIMETHOPRIM-SULFAMETHOXAZOLE Inactive ZOLOFT 50 MG TAB 1 po qd ZOLOFT 50 MG TAB 3129 41 SERTRALINE HCL Inactive BENADRYL 25 MG CAP 1 po q8hr PRN Congestion BENADRYL 25 MG CAP 7083542 DIPHENHYDRAMINE HCL Inactive 28-0.8 MG TABS Take one by mouth daily 09/20 28-0.8 MG TABS VIT-FE FUMARATE-FA Inactive HYDROCODONE-ACETAMINOPHEN 5-325 MG TABS 1 po q 6hr PRN Pain 2010 HYDROCODONE-ACETAMINOPHEN 5-325 MG TABS 910479 HYDROCODONE-ACETAMINOPHEN Inactive LORATADINE 10 MG TABS 1 tablet by mouth daily LORATADINE 10 MG TABS 607178 LORATADINE Inactive LUIS 3-0.02 MG TABS 1 tablet by mouth daily as directed LUIS 3-0.02 MG TABS DROSPIRENONE-ETHINYL ESTRADIOL Inactive VITAMINS TABS Take one by mouth daily VITAMINS TABS MV & MIN W/FE-FA TABS Inactive PERCOCET 5-325 MG TABS 1 tablet by mouth every 6 hours as ne eded for pain PERCOCET 5-325 MG TABS 3333419 OXYCODONE-ACETAMIN OPHEN Inactive PREDNISONE 20 MG TAB 2 tabs daily for 4 days, 1 t ab daily for 4 days, 1/2 tab daily for 4 days PREDNISONE 20 MG TAB 202766 PREDNISON E Inactive CLINDAMYCIN HCL 300 MG CAPS 1 po q6hr x 7 days CLINDAMYCIN HCL 300 MG CAPS 207372 CLINDAMYCIN HCL Inactive HYDROCODONE-ACETAMINOPHEN 7.5-325 MG TABS 1 po QID PRN Pain 2011 HYDROCODONE-ACETAMINOPHEN 7.5-325 MG TABS 010989 HYDROCODONE-ACETAMINOPHEN Inactive SPIRONOLACTONE 25 MG TAB 1 tablet by mouth daily 01/22 SPIRONOLACTONE 25 MG TAB 695776 SPIRONOLACTONE Inactive IBUPROFEN 600 MG TAB 1 po q6-8hr PRN IBUPROFEN 600 MG TAB 379861 IBUPROFEN Inactive FERROUS SULFATE 325 (65 FE) MG TABS 1 tablet by mouth twice yung y FERROUS SULFATE 325 (65 FE) MG TABS 093478 FERROUS SULF ATE Inactive HYDROCODONE-ACETAMINOPHEN 7.5-500 MG [...] PRN Pain 2011 HYDROCODONE-ACETAMINOPHEN 5-325 MG TABS 938711 HYDROCODONE-ACETAMINOPHEN Inactive DOXYCYCLINE HYCLATE 100 MG CAPS Take one (1) tablet by mouth twice a day DOXYCYCLINE HYCLATE 100 MG CAPS 492357 DOXYCYCLINE HYCLATE Inactive PENICILLIN V POTASSIUM 500 MG TAB 1 four times a day 2 PENICILLIN V POTASSIUM 500 MG TAB 211330 PENICILLIN V POTASSIUM [place] ctive PRISTIQ 50 MG [id number] 1 po qd PRISTIQ 50 MG [id number] DESVENLAFAXINE SUCCINATE Inactive TYLENOL/CODEINE #3 300-30 MG TAB 1-2 po q6hr PRN Pain TYLENOL/CODEINE #3 300-30 MG TAB 677491 ACETAMINOPHEN-CODEINE Inact krishna CEPHALEXIN 500 MG TABS Take one by mouth four times daily, morning, noon, early evening and bedtime. CEPHALEXIN 500 MG TABS 335533 CEPHALEXIN Inactive LORTAB 5 5-500 MG TABS 1/2 to 1 tablet by mouth go ry 6 hours as needed for pain LORTAB 5 5-500 MG TABS HYDROCODONE-A CETAMINOPHEN Inactive AMITRIPTYLINE HCL 25 MG TAB 1 tab by mouth daily 60 minutes before bedtime AMITRIPTYLINE HCL 25 MG TAB 186198 AMITRIPTYLINE HCL Inactive AMOXICILLIN 500 MG TABS 2 tabs PO bid x 10 d 7 AMOXICILLIN 500 MG TABS 323822 AMOXICILLIN Inactive IMPLANON 68 MG IMPL IMPLANTED IN LEFT ARM IMPLANON 68 MG IMPL ETONOGESTREL Inactive HYDROCODONE-ACETAMINOPHEN 5-325 MG TABS 1 PO tid PRN pain 5 HYDROCODONE-ACETAMINOPHEN 5-325 MG TABS 089475 HYDROCODONE-ACETAMIN OPHEN Inactive BACTRIM DS 800-160 MG TAB 1 tab by mouth twice daily 2 BACTRIM DS 800-160 MG TAB TRIMETHOPRIM-SULFAMETHOXAZOLE Inac tive CEPHALEXIN 500 MG CAPS 1 PO bid x 7 days CEPHALEXIN 500 MG CAPS 188823 CEPHALEXIN Inactive HYDROCODONE-ACETAMINOPHEN 5-325 MG TABS 1 tab by mouth every 6 hours as needed HYDROCODONE-ACETAMINOPHEN 5-325 MG TABS 483043 HYDROCODONE-ACETAMINOPHEN Inactive PROMETHAZINE-CODEINE 6.25-10 MG/5ML SYRP 1 tsp every 6 hrs prn c ough PROMETHAZINE-CODEINE 6.25-10 MG/5ML SYRP 377964 PROMETH AZINE-CODEINE Inactive IBUPROFEN 800 MG TAB 1 pill three times daily as needed for pain IBUPROFEN 800 MG TAB 083987 IBUPROFEN Inactive KEFLEX 500 MG CAP 1 tab po tid KEFLEX 500 MG CAP 646174 CEPHALEXIN Inactive HYDROCODONE-ACETAMINOPHEN 7.5-325 MG TABS 1 four times a day as needed for pain HYDROCODONE-ACETAMINOPHEN 7.5-325 MG TABS 586668 HYDROCODONE-ACETAMINOPHEN Inactive BACTRIM DS 800-160 MG TABS by mouth twice a day 11/05 BACTRIM DS 800-160 MG TABS SULFAMETHOXAZOLE-TRIMETHOPRIM Inactive IBUPROFEN 800 MG TABS 1 tid prn IBUPROFEN 800 MG TABS 156144 IBUPROFEN Inactive ENDOCET 10-325 MG TABS 1 q 6 hr prn ENDOC ET 10-325 MG TABS 4464917 OXYCODONE-ACETAMINOPHEN Inactive HYDROCODONE-ACETAMINOPHEN 7.5-325 MG TABS 1 by mouth e very 6 hours as needed for pain HYDROCODONE-ACETAMINOPHEN 7.5-325 MG TABS 384541 HYDROCODONE-ACETAMINOPHEN Inactive PERCOCET 7.5-325 MG TABS 1 PO q 8 hrs PRN pain PERCOCET 7.5-325 MG TABS 4466469 OXYCODONE-ACETAMINOPHEN Inactive LIDODERM 5 % PTCH One patch to painful area [place] N. On for 12 hrs, off for 12 hrs. LIDODERM 5 % PTCH 6627237 LIDOCAINE Inactiv e PERCOCET 7.5-325 MG TABS 1 PO tid PRN pain PERCOCET 7.5- 325 MG TABS 4194692 OXYCODONE-ACETAMINOPHEN Inactive MOBIC 15 MG TABS 1 tab daily MOBIC 15 MG TABS 15 2695 MELOXICAM Inactive CYCLOBENZAPRINE HCL 10 MG TABS 1/2 - 1 tab PO tid PRN back p ain, muscle spasm CYCLOBENZAPRINE HCL 10 MG TABS 838864 CYCLOBENZA JOSEPH HCL Inactive LORATADINE 10 MG TABS 1 tablet by mouth daily LORATADINE 10 MG TABS 745715 LORATADINE Inactive HYDROCODONE-ACETAMINOPHEN 10-325 MG TABS 1 by mouth ev chaka 8 hours as needed for pain HYDROCODONE-ACETAMINOPHEN 10-325 MG TABS 370722 HYDROCODONE-ACETAMINOPHEN Inactive LC-5 LIDOCAINE 5 % CREA apply 1 time daily to affected area 2013 LC-5 LIDOCAINE 5 % CREA LIDOCAINE (ANORECTAL) In active PERCOCET 5-325 MG TAB 1 every 6 hours as needed PERCOCET 5-325 MG TAB 9233449 OXYCODONE-ACETAMINOPHEN Inactive KEFLEX 500 MG CAP 1 po qid KEFLEX 500 MG CAP 30 9114 CEPHALEXIN Inactive PROAIR HFA 108 (90 BASE) MCG/ACT AERS 2 puff q 4-6 hrs PRN 01/24 PROAIR HFA 108 (90 BASE) MCG/ACT AERS ALBUTEROL SULFATE Inactive AMOXICILLIN 875 MG TABS 1 tab by mouth twice daily 201 07/18/07 AMOXICILLIN 875 MG TABS 930446 AMOXICILLIN Inactive KEFLEX 500 MG CAP 1 po tid x 10 days KEFLEX 500 MG CAP 646622 CEPHALEXIN Inactive AMOXICILLIN 875 MG TABS 1 tab by mouth twice daily 201 07/19/27 AMOXICILLIN 875 MG TABS 097992 AMOXICILLIN Inactive AMOXICILLIN 875 MG TABS 1 tab by mouth twice daily 201 08/09/13 AMOXICILLIN 875 MG TABS 141496 AMOXICILLIN Inactive CIPRO 500 MG TAB 1 tablet by mouth twice daily CIPRO 500 MG TAB 077567 CIPROFLOXACIN HCL Inactive BACTRIM DS 800-160 MG TAB 1 tab by mouth twice daily 2 BACTRIM DS 800-160 MG TAB TRIMETHOPRIM-SULFAMETHOXAZOLE Inac tive LEVAQUIN 500 MG TABS 1 PO q day x 7 days LEVAQUIN 500 MG TABS 935935 LEVOFLOXACIN Inactive CLINDAMYCIN HCL 300 MG CAPS 1 po QID x 7 days CLINDAMYCIN HCL 300 MG CAPS 689156 CLINDAMYCIN HCL Inactive AUGMENTIN 875-125 MG TAB 1 tab by mouth twice daily with food 22/05/07 AUGMENTIN 875-125 MG TAB 310215 AMOXICILLIN-POT [place] Inactive DIFLUCAN 150 MG TAB 1 qODay x 2 doses DIFLUCAN 150 MG TAB 538401 FLUCONAZOLE Inactive PREDNISONE 20 MG TAB 2 tabs daily for 3 days, 1 t ab daily for 3 days, 1/2 tab daily for 2 days PREDNISONE 20 MG TAB 513477 PREDNISON E Inactive Advance Directives Directive Description Start Date PERMISSION TO SHARE Immunizations Vaccine Administration Date Value Standard Alf cription Seasonal influenza vaccine, injectable, containing preservative, for > 3 years old (Afluria, FluLaval, Fluzone, Fluvirin, Fluarix, Agriflu(>= 18 yo)) Fluzone (>3 yrs.) [[id number]] Influenza, seasonal, inject able Seasonal influenza vaccine, injectable, preservative free, for > 3 years old (Afluria, FluLaval, Fluzone, Fluvirin, Fluarix, Agriflu(>= 18 yo)) Fluzone preservative free (>3 yrs.) [[id number]] Influenza, seasonal, injectable, preservative free Seasonal influenza vaccine, injectable, containing preservative, for > 3 years old (Afluria, FluLaval, Fluzone, Fluvirin, Fluarix, Agriflu(>= 18 yo)) Fluzone (>3 yrs.) [[id number]] Influenza, seasonal, inject able Seasonal influenza vaccine, injectable, containing preservative, for > 3 years old (Afluria, FluLaval, Fluzone, Fluvirin, Fluarix, Agriflu(>= 18 yo)) Fluzone (>3 yrs.) [[id number]] Influenza, seasonal, inject able dT (Diphtheria and [...] negative Encounters Code Encounter Date Provider Facility CPT-38324 Level 2 Est. Patient 07:49:32 CDT Kalpesh goins MD [facility] CPT-81210 Level 3 New Patient 15:47:11 RECREATIONAL LEADER Bj huber MD [facility] CPT-29465 Level 4 Est. Patient 14:37:38 RECREATIONAL LEADER Abdirahman Rios MD [facility] CPT-18593 Level 2 Est. Patient 13:32:17 RECREATIONAL LEADER Kalpesh goins MD [facility] CPT-27212 Level 3 Est. Patient 17:32:57 RECREATIONAL LEADER Edilberto tiwari DO [facility] CPT-51703 Level 3 Est. Patient 17:22:33 RECREATIONAL LEADER Edilberto tiwari [facility] CPT-77871 Level 2 Est. Patient 16:57:09 RECREATIONAL LEADER Kalpesh goins MD [facility] CPT-72991 Level 3 Est. Patient 14:03:08 RECREATIONAL LEADER Abdirahman Rios MD [facility] CPT-66104 Level 3 Est. Patient 18:12:34 CDT Shola Wright [facility] CPT-75786 Level 3 Est. Patient 19:34:46 CDT Shola Wright [facility] CPT-04621 Level 3 Est. Patient 14:19:37 CDT Abdirahman Rios MD [facility] CPT-83661 Level 3 Est. Patient 14:11:58 CDT Kalpesh goins MD [facility]-72099 Level 3 Est. Patient 16:50:00 CDT Michelle MERCADO [facility] CPT-05617 Level 3 Est. Patient 17:11:32 RECREATIONAL LEADER Brandie bates MD PhD [facility] CPT-90082 Level 3 Est. Patient 16:31:47 RECREATIONAL LEADER Shola Wright [facility] CPT-73708 Level 3 Est. Patient 17:51:10 RECREATIONAL LEADER Abhinav Galvan MD [facility] CPT-73317 Level 4 Est. Patient 12:54:56 RECREATIONAL LEADER Kalpesh goins MD [facility]-78491 Level 4 Est. Patient 12:53:56 RECREATIONAL LEADER Kalpesh goins MD [facility]-55473 Level 3 Est. Patient 17:56:58 CDT Shola Wright [facility] CPT-74262 Level 3 Est. Patient 14:26:20 CDT Janak butcher [facility] CPT-21027 Level 3 Est. Patient 09:38:41 CDT Shola Thao Adriana [facility] CPT-02717 Level 3 Est. Patient 14:45:26 CDT Edilberto tiwari [facility] CPT-89456 Level 3 Est. Patient 10:51:33 [facility] Level 3 Est. Patient 11:57:55 RECREATIONAL LEADER Shola Thao Adriana [facility] CPT-82742 Level 3 Est. Patient 09:53:33 RECREATIONAL LEADER Edilberto tiwari [facility] CPT-12257 Level 3 Est. Patient 14:42:54 RECREATIONAL LEADER Abhinav Galvan MD [facility] CPT-53648 Level 3 Est. Patient 15:10:02 CDT Janak butcher [facility] CPT-35523 Level 3 Est. Patient 15:20:20 CDT Theo dennis MD [facility] CPT-46389 Level 2 Est. Patient 14:08:57 CDT Kalpesh goins MD [facility] CPT-89436 Level 3 Est. Patient 13:56:19 CDT Abdirahman Rios MD [facility] CPT-20115 Level 3 Est. Patient 13:59:37 CDT Abdirahman Rios MD [facility] CPT-82501 Level 2 Est. Patient 14:44:59 CDT Kalpesh goins MD [facility] CPT-34027 Level 3 Est. Patient 06:06:23 CDT Edilberto tiwari [facility] CPT-74694 Level 3 Est. Patient 15:23:54 CDT Abdirahman Rios MD [facility] CPT-45861 Level 3 Est. Patient 15:43:49 CDT Abdirahman Rios MD [facility] CPT-22179 Level 3 Est. Patient 12:46:47 RECREATIONAL LEADER Abdirahman Rios MD [facility] CPT-79874 Level 3 Est. Patient 08:13:35 RECREATIONAL LEADER Abdirahman Rios MD [facility] CPT-95543 Level 2 Est. Patient 09:36:42 RECREATIONAL LEADER Abdirahman Rios MD [facility] CPT-72107 Level 3 Est. Patient 10:56:43 CDT Abdirahman Rios MD [facility] CPT-36729 Level 3 Est. Patient 18:24:52 CDT Abdirahman Rios MD [facility] CPT-87558 Level 3 Est. Patient 13:27:22 CDT Abdirahman Rios MD [facility] Procedures Code Procedure Name Date Entry Date Standard Desc ription CPT-38428 Postop F/U Visit 11:29:00 RECREATIONAL LEADER CPT-J0696 Rocephin 1000 mg (Ceftriaxone) 17:22:33 RECREATIONAL LEADER CPT-67888 Postop F/U Visit 18:41:07 RECREATIONAL LEADER CPT-52248 Postop F/U Visit 08:19:08 RECREATIONAL LEADER CPT-36527 Immunization Single Admin 16:41:53 CDT 2013 CPT-76338 Fluzone Quadrivalent Intramuscular Suspe nsion 0.5 ML 16:41:53 CDT CPT-OV Office Visit 16:39:18 CDT CPT-OV Office Visit 16:16:36 CDT CPT-OV Office Visit 15:34:48 CDT CPT-15602 Postop F/U Visit 14:50:12 CDT CPT-94913 Postop F/U Visit 14:41:10 CDT CPT-83329 Venipuncture Draw Fee 11:38:04 RECREATIONAL LEADER CPT-74626 Postop F/U Visit 19:02:59 RECREATIONAL LEADER CPT-85545 Postop F/U Visit 12:04:54 RECREATIONAL LEADER CPT-58573 Administration single or combination vac cine inc oral 15:56:43 CDT CPT-92562 Influenza split virus > age 3 15:56:43 CDT CPT-14575 Hand comp min 3V 14:25:19 CDT CPT-84990 Postop F/U Visit 21:40:51 CDT CPT-51902 Postop F/U Visit 10:58:43 CDT CPT-64251 Administration single or combination vac cine inc oral 12:33:54 RECREATIONAL LEADER CPT-42275 Influenza Preservative Free split virus >age 3 12:33:54 RECREATIONAL LEADER CPT-61099 Administration single or combination vac cine inc oral 09:30:51 CDT CPT-07278 Influenza split virus > age 3 09:30:51 CDT CPT-06853 Postop F/U Visit 15:14:53 CDT CPT-35862 Postop F/U Visit 13:50:14 CDT CPT-23573 Postop F/U Visit 13:34:52 CDT CPT-OV Office Visit 16:55:03 CDT CPT-31288 Portal of cervix w bx ECC 13:32:50 CDT 10/19 CPT-J1885 Toradol 60 mg (Ketorolac) 15:31:59 CDT 2011 CPT-J1885 Toradol 60 mg (Ketorolac) 15:23:54 CDT 2011 CPT-71404 Visit 11:34:37 RECREATIONAL LEADER CPT-77446 Visit 10:52:39 RECREATIONAL LEADER CPT-01015 Visit 10:12:02 RECREATIONAL LEADER CPT-94481 Visit 11:22:43 RECREATIONAL LEADER CPT-96480 Visit 11:24:12 RECREATIONAL LEADER CPT-34792 Visit 10:47:05 RECREATIONAL LEADER CPT-OV Office Visit 10:26:16 RECREATIONAL LEADER CPT-OV Office Visit 15:34:31 RECREATIONAL LEADER CPT-59560 Visit 10:42:08 RECREATIONAL LEADER CPT-56492 Visit 10:52:45 RECREATIONAL LEADER CPT-000 Give Appropriate Flu Vaccine 16:56:41 CDT 2 CPT-95982 Administration single or combination vac cine inc oral 10:33:21 CDT CPT-36351 Influenza split virus > age 3 10:33:21 CDT CPT-11768 Visit 13:23:09 CDT CPT-78381 Visit 18:24:52 CDT CPT-25928 Sono OB comp > 14 weeks 12:07:49 CDT 04/07
--- OUTSIDE RECORDS SUMMARY | 2020-01-18 16:57 | XMS REPORT | Clinical Summary ---
Author Author Admin, Jeri Rashid Organization [facility] Address Unknown Phone Unavailable Allergies, Adverse [...] Instruction EMLA 2.5-2.5 % EXT CREA apply to skin lesion q 6 hours, prn LIDOCAINE-PRILOCAINE 31511606108 Active Jillina Frazell SURVEY METHODOLOGIST Active CYCLOBENZAPRINE HCL 10 MG TABS 1 tablet by mouth three times daily as needed for muscle spasm/pain CYCLOBENZAPRINE HCL 76786469950 Active Abdirahman Rios MD Active PREDNISONE 20 MG TAB 2 tabs daily for 3 days, 1 t ab daily for 3 days, 1/2 tab daily for 2 days PREDNISONE 22466780788 No Longer Active Abdirahman Rios MD Active KEFLEX 500 MG CAP 1 po qid CEPHALEXIN 947876546 20 No Longer Active Kalpesh Dong MD Active PERCOCET 5-325 MG TAB 1 every 6 hours as needed OXYCODONE-ACETAMINOPHEN 68804586355 No Longer Active Shola MCGILL Active LC-5 LIDOCAINE 5 % CREA apply 1 time daily to affected area 2013 LIDOCAINE (ANORECTAL) 58505185633 No Longer Active Hira muniz APRN Active HYDROCODONE-ACETAMINOPHEN 5-325 MG TABS 2 tablets by m outh every 8 hours as needed for pain HYDROCODONE-ACETAMINOPHEN 81897404972 Acti ve Abdirahman Rios MD Active HYDROCODONE-ACETAMINOPHEN 10-325 MG TABS 1 by mouth ev chaka 8 hours as needed for pain HYDROCODONE-ACETAMINOPHEN 53501988215 No Longer Active Jillina Karmenl SURVEY METHODOLOGIST Active LORATADINE 10 MG TABS 1 tablet by mouth daily L ORATADINE 03650630370 No Longer Active Jillina Frazell SURVEY METHODOLOGIST Active DIFLUCAN 150 MG TAB 1 qODay x 2 doses FLUCONAZO LE 51243246341 No Longer Active Jillina Frazell SURVEY METHODOLOGIST Active CYCLOBENZAPRINE HCL 10 MG TABS 1/2 - 1 tab PO tid PRN back p ain, muscle spasm CYCLOBENZAPRINE HCL 61142638616 No Longer Active Karen herson Frazell SURVEY METHODOLOGIST Active AUGMENTIN 875-125 MG TAB 1 tab by mouth twice daily with food 20 22/05/07 AMOXICILLIN-POT CLAVULANATE 44742627471 No Longer Active Loida Rios MD Active MOBIC 15 MG TABS 1 tab daily MELOXICAM 096478306 14 No Longer Active Abdirahman Rios MD Active PERCOCET 7.5-325 MG TABS 1 PO tid PRN pain OXYCODONE-ACETAMINOPHEN 06543378969 No Longer Active Abdirahman Rios MD Active LIDODERM 5 % PTCH One patch to painful area [place] N. On for 12 hrs, off for 12 hrs. LIDOCAINE 77508062877 No Longer Active Abdirahman Rios MD Active PERCOCET 7.5-325 MG TABS 1 PO q 8 hrs PRN pain OXYCODONE-ACETAMINOPHEN 59345959590 No Longer Active Shola MCGILL Active HYDROCODONE-ACETAMINOPHEN 7.5-325 MG TABS 1 by mouth e very 6 hours as needed for pain HYDROCODONE-ACETAMINOPHEN 76828263264 No Longer Active Good Julian MD Active CLINDAMYCIN HCL 300 MG CAPS 1 po QID x 7 days CLINDAMYCIN HCL 81268869625 No Longer Active Abdirahman Rios MD Activ e BACTRIM DS 800-160 MG TABS 1 po BID x 7 days 5 SULFAMETHOXAZOLE-TRIMETHOPRIM 41035273132 No Longer Active Abdirahman Rios MD Active ENDOCET 10-325 MG TABS 1 q 6 hr prn OXYCODONE-ACETAMINOPHEN 89739993187 No Longer Active Abdirahman Rios MD Active IBUPROFEN 800 MG TABS 1 tid prn IBUPROFEN 517426 20478 No Longer Active Abdirahman Rios MD Active BACTRIM DS 800-160 MG TABS by mouth twice a day 11/05 SULFAMETHOXAZOLE-TRIMETHOPRIM 39430952433 No Longer Active Good Julian MD Active HYDROCODONE-ACETAMINOPHEN 7.5-325 MG TABS 1 four times a day as needed for pain HYDROCODONE-ACETAMINOPHEN 92172642189 No Longer Activ e Good Julian MD Active KEFLEX 500 MG CAP 1 tab po tid CEPHALEXIN 486378 05838 No Longer Active Hira Moser APRN Active IBUPROFEN 800 MG TAB 1 pill three times daily as needed for pain IBUPROFEN 56762788052 No Longer Active Kalpesh Dong MD Active PROMETHAZINE-CODEINE 6.25-10 MG/5ML SYRP 1 tsp every 6 hrs prn c ough PROMETHAZINE-CODEINE 65802883430 No Longer Active Kalpesh Carr Active ALPRAZOLAM 0.5 MG TABS 1 PO bid PRN ALPRAZOLAM 254168 04198 Active Brandie Cardenas MD PhD Active HYDROCODONE-ACETAMINOPHEN 5-325 MG TABS 1 tab by mouth every 6 hours as needed HYDROCODONE-ACETAMINOPHEN 30374316757 No Longer Activ e Shola MCGILL Active CEPHALEXIN 500 MG CAPS 1 PO bid x 7 days CEPHAL EXIN 11130806433 No Longer Active Shola MCGILL Active BACTRIM DS 800-160 MG TAB 1 tab by mouth twice daily 2 TRIMETHOPRIM-SULFAMETHOXAZOLE 71895515458 No Longer Active Kalpesh Dong MD Active HYDROCODONE-ACETAMINOPHEN 5-325 MG TABS 1 PO tid PRN pain 5 HYDROCODONE-ACETAMINOPHEN 99889782541 No Longer Active Abhinav Galvan MD Active IMPLANON 68 MG IMPL IMPLANTED IN LEFT ARM ETONO GESTREL 06557967497 No Longer Active Hira Moser APRN Active AMOXICILLIN 500 MG TABS 2 tabs PO bid x 10 d AM OXICILLIN 14809907459 No Longer Active Kalpesh Dong MD Active LEVAQUIN 500 MG TABS 1 PO q day x 7 days LEVOFL OXACIN 04596771707 No Longer Active Shola MCGILL Active PROAIR HFA 108 (90 BASE) MCG/ACT AERS 2 puff q 4-6 hrs PRN ALBUTEROL SULFATE 89620760991 Active Edilberto Marino DO Active FIORICET 50-325-40 MG TABS 2 PO q 8 hrs PRN FOSTER [id number] Active Shola MCGILL Active AMITRIPTYLINE HCL 25 MG TAB 1 tab by mouth daily 60 minutes before bedtime AMITRIPTYLINE HCL 78023997288 No Longer Active Shola MCGILL Active LORTAB 5 5-500 MG TABS 1/2 to 1 tablet by mouth go ry 6 hours as needed for pain HYDROCODONE-ACETAMINOPHEN 59268779289 No Longer Active Shola MCGILL Active CEPHALEXIN 500 MG TABS Take one by mouth four times daily, morning, noon, early evening and bedtime. CEPHALEXIN 42437902933 No Long er Active Hira Moser APRN Active TYLENOL/CODEINE #3 300-30 MG TAB 1-2 po q6hr PRN Pain ACETAMINOPHEN-CODEINE 13600706373 No Longer Active Edilberto Marino DO Active PRISTIQ 50 MG DI12N-QOP 1 po qd DESVENLAFAXI NE SUCCINATE 60820645092 No Longer Active Edilberto Marino DO Active PENICILLIN V POTASSIUM 500 MG TAB 1 four times a day 2 PENICILLIN V POTASSIUM 44726795923 No Longer Active Edilberto Marino DO Active DOXYCYCLINE HYCLATE 100 MG CAPS Take one (1) tablet by mouth twice a day DOXYCYCLINE HYCLATE 12267002581 No Longer Active Ronnie Galvan MD Active HYDROCODONE-ACETAMINOPHEN 5-325 MG TABS 1 po q 6hr PRN Pain 2011 HYDROCODONE-ACETAMINOPHEN 77882310434 No Longer Active Jerson Perez RN Active BACTRIM DS 800-160 MG TAB 1 tab by mouth twice daily 2 TRIMETHOPRIM-SULFAMETHOXAZOLE 61791248953 No Longer Active Kalpesh Dogn MD Active LORTAB 5 5-500 MG TABS 1/2 to 1 tablet by mouth go ry 4 hours as needed for pain HYDROCODONE-ACETAMINOPHEN 27646890601 No Longer Active Kalpesh Dong MD Active GENERESS FE 0.8-25 MG-MCG CHEW Take one by mouth daily NORETHIN-ETH ESTRADIOL-FE 39860295997 No Longer Active Kalpesh Dong MD Active HYDROCODONE-ACETAMINOPHEN 7.5-500 MG TABS 1-2 every 4 hours as needed HYDROCODONE-ACETAMINOPHEN 55661220231 No Longer Activ e Kalpesh Dong MD Active FERROUS SULFATE 325 (65 FE) MG TABS 1 tablet by mouth twice yung y FERROUS SULFATE 22682894062 No Longer Active Kalpesh Dong MD Active IBUPROFEN 600 MG TAB 1 po q6-8hr PRN IBUPROFEN 76827680335 No Longer Active Kalpesh Dong MD Active SPIRONOLACTONE 25 MG TAB 1 tablet by mouth daily 01/22 SPIRONOLACTONE 78014431477 No Longer Active Kalpesh Dong MD Acti ve HYDROCODONE-ACETAMINOPHEN 7.5-325 MG TABS 1 po QID PRN Pain 2011 HYDROCODONE-ACETAMINOPHEN 78670922234 No Longer Active Kalpesh Dong MD Active CLINDAMYCIN HCL 300 MG CAPS 1 po q6hr x 7 days CLINDAMYCIN HCL 38367413715 No Longer Active Edilberto Marino DO Active PREDNISONE 20 MG TAB 2 tabs daily for 4 days, 1 t ab daily for 4 days, 1/2 tab daily for 4 days PREDNISONE 39799693457 No Longer Active Edilberto Marino DO Active PERCOCET 5-325 MG TABS 1 tablet by mouth every 6 hours as ne eded for pain OXYCODONE-ACETAMINOPHEN 92154157140 No Longer Active Abdirahman Rios MD Active VITAMINS TABS Take one by mouth daily MV & MIN W/FE-FA TABS 99323160354 No Longer Active Abdirahman Rios MD Active LUIS 3-0.02 MG TABS 1 tablet by mouth daily as directed DROSPIRENONE-ETHINYL ESTRADIOL 10033405367 No Longer Active Abdirahman Rios MD Active LORATADINE 10 MG TABS 1 tablet by mouth daily L ORATADINE 70723351414 No Longer Active Kalpesh Dong MD Active HYDROCODONE-ACETAMINOPHEN 5-325 MG TABS 1 po q 6hr PRN Pain 2010 HYDROCODONE-ACETAMINOPHEN 68981027501 No Longer Active Edilberto Marino DO Active BACTRIM DS 800-160 MG TAB 1 tab by mouth twice daily 2 TRIMETHOPRIM-SULFAMETHOXAZOLE 00511873178 No Longer Active Abdirahman Rios MD Active 28-0.8 MG TABS Take one by mouth daily 09/20 VIT-FE FUMARATE-FA 09291148224 No Longer Active Abdirahman Rios MD Active CIPRO 500 MG TAB 1 tablet by mouth twice daily CIPROFLOXACIN HCL 87982731991 No Longer Active Abdirahman Rios MD Active BENADRYL 25 MG CAP 1 po q8hr PRN Congestion DIPHENHYDRAMINE HCL 30919562396 No Longer Active Abdirahman Rios MD Active ZOLOFT 50 MG TAB 1 po qd SERTRALINE HCL 321572 82188 No Longer Active Abdirahman Rios MD Active AMOXICILLIN 875 MG TABS 1 tab by mouth twice daily 201 08/09/13 AMOXICILLIN 81508548589 No Longer Active Abdirahman Rios MD Activ e AMOXICILLIN 875 MG TABS 1 tab by mouth twice daily 201 07/19/27 AMOXICILLIN 58987864975 No Longer Active Abdirahman Rios MD Activ e BACTRIM DS 800-160 MG TAB 2 tab by mouth twice daily 2 TRIMETHOPRIM-SULFAMETHOXAZOLE 84751679373 No Longer Active Abdirahman Rios MD Active KEFLEX 500 MG CAP 1 po tid x 10 days CEPHALEXIN 31195199725 No Longer Active Abdirahman Rios MD Active AMOXICILLIN 875 MG TABS 1 tab by mouth twice daily 201 07/18/07 AMOXICILLIN 19743066498 No Longer Active Abdirahman Rios MD Activ e BACTRIM DS 800-160 MG TAB 2 tab by mouth twice daily 2 BACTRIM DS 800-160 MG TAB TRIMETHOPRIM-SULFAMETHOXAZOLE Inactive ZOLOFT 50 MG TAB 1 po qd ZOLOFT 50 MG TAB 3129 41 SERTRALINE HCL Inactive BENADRYL 25 MG CAP 1 po q8hr PRN Congestion BENADRYL 25 MG CAP 9490763 DIPHENHYDRAMINE HCL Inactive 28-0.8 MG TABS Take one by mouth daily 09/20 28-0.8 MG TABS VIT-FE FUMARATE-FA Inactive HYDROCODONE-ACETAMINOPHEN 5-325 MG TABS 1 po q 6hr PRN Pain 2010 HYDROCODONE-ACETAMINOPHEN 5-325 MG TABS 754228 HYDROCODONE-ACETAMINOPHEN Inactive LORATADINE 10 MG TABS 1 tablet by mouth daily LORATADINE 10 MG TABS 920385 LORATADINE Inactive LUIS 3-0.02 MG TABS 1 tablet by mouth daily as directed LUIS 3-0.02 MG TABS DROSPIRENONE-ETHINYL ESTRADIOL Inactive VITAMINS TABS Take one by mouth daily VITAMINS TABS MV & MIN W/FE-FA TABS Inactive PERCOCET 5-325 MG TABS 1 tablet by mouth every 6 hours as ne eded for pain PERCOCET 5-325 MG TABS 7191443 OXYCODONE-ACETAMIN OPHEN Inactive PREDNISONE 20 MG TAB 2 tabs daily for 4 days, 1 t ab daily for 4 days, 1/2 tab daily for 4 days PREDNISONE 20 MG TAB 246605 PREDNISON E Inactive CLINDAMYCIN HCL 300 MG CAPS 1 po q6hr x 7 days CLINDAMYCIN HCL 300 MG CAPS 612611 CLINDAMYCIN HCL Inactive HYDROCODONE-ACETAMINOPHEN 7.5-325 MG TABS 1 po QID PRN Pain 2011 HYDROCODONE-ACETAMINOPHEN 7.5-325 MG TABS 126627 HYDROCODONE-ACETAMINOPHEN Inactive SPIRONOLACTONE 25 MG TAB 1 tablet by mouth daily 01/22 SPIRONOLACTONE 25 MG TAB 672433 SPIRONOLACTONE Inactive IBUPROFEN 600 MG TAB 1 po q6-8hr PRN IBUPROFEN 600 MG TAB 636743 IBUPROFEN Inactive FERROUS SULFATE 325 (65 FE) MG TABS 1 tablet by mouth twice yung y FERROUS SULFATE 325 (65 FE) MG TABS 621581 FERROUS SULF ATE Inactive HYDROCODONE-ACETAMINOPHEN 7.5-500 MG [...] PRN Pain 2011 HYDROCODONE-ACETAMINOPHEN 5-325 MG TABS 979897 HYDROCODONE-ACETAMINOPHEN Inactive DOXYCYCLINE HYCLATE 100 MG CAPS Take one (1) tablet by mouth twice a day DOXYCYCLINE HYCLATE 100 MG CAPS 675243 DOXYCYCLINE HYCLATE Inactive PENICILLIN V POTASSIUM 500 MG TAB 1 four times a day 2 PENICILLIN V POTASSIUM 500 MG TAB 191661 PENICILLIN V POTASSIUM Dolphin ctive PRISTIQ 50 MG [id number] 1 po qd PRISTIQ 50 MG [id number] DESVENLAFAXINE SUCCINATE Inactive TYLENOL/CODEINE #3 300-30 MG TAB 1-2 po q6hr PRN Pain TYLENOL/CODEINE #3 300-30 MG TAB 289820 ACETAMINOPHEN-CODEINE Inact krishna CEPHALEXIN 500 MG TABS Take one by mouth four times daily, morning, noon, early evening and bedtime. CEPHALEXIN 500 MG TABS 742146 CEPHALEXIN Inactive LORTAB 5 5-500 MG TABS 1/2 to 1 tablet by mouth go ry 6 hours as needed for pain LORTAB 5 5-500 MG TABS HYDROCODONE-A CETAMINOPHEN Inactive AMITRIPTYLINE HCL 25 MG TAB 1 tab by mouth daily 60 minutes before bedtime AMITRIPTYLINE HCL 25 MG TAB 105446 AMITRIPTYLINE HCL Inactive AMOXICILLIN 500 MG TABS 2 tabs PO bid x 10 d 7 AMOXICILLIN 500 MG TABS 059598 AMOXICILLIN Inactive IMPLANON 68 MG IMPL IMPLANTED IN LEFT ARM IMPLANON 68 MG IMPL ETONOGESTREL Inactive HYDROCODONE-ACETAMINOPHEN 5-325 MG TABS 1 PO tid PRN pain 5 HYDROCODONE-ACETAMINOPHEN 5-325 MG TABS 969347 HYDROCODONE-ACETAMIN OPHEN Inactive BACTRIM DS 800-160 MG TAB 1 tab by mouth twice daily 2 BACTRIM DS 800-160 MG TAB TRIMETHOPRIM-SULFAMETHOXAZOLE Inac tive CEPHALEXIN 500 MG CAPS 1 PO bid x 7 days CEPHALEXIN 500 MG CAPS 683746 CEPHALEXIN Inactive HYDROCODONE-ACETAMINOPHEN 5-325 MG TABS 1 tab by mouth every 6 hours as needed HYDROCODONE-ACETAMINOPHEN 5-325 MG TABS 628599 HYDROCODONE-ACETAMINOPHEN Inactive PROMETHAZINE-CODEINE 6.25-10 MG/5ML SYRP 1 tsp every 6 hrs prn c ough PROMETHAZINE-CODEINE 6.25-10 MG/5ML SYRP 393290 PROMETH AZINE-CODEINE Inactive IBUPROFEN 800 MG TAB 1 pill three times daily as needed for pain IBUPROFEN 800 MG TAB IBUPROFEN Inactive KEFLEX 500 MG CAP 1 tab po tid KEFLEX 500 MG CAP 661520 CEPHALEXIN Inactive HYDROCODONE-ACETAMINOPHEN 7.5-325 MG TABS 1 four times a day as needed for pain HYDROCODONE-ACETAMINOPHEN 7.5-325 MG TABS 639586 HYDROCODONE-ACETAMINOPHEN Inactive BACTRIM DS 800-160 MG TABS by mouth twice a day 11/05 BACTRIM DS 800-160 MG TABS SULFAMETHOXAZOLE-TRIMETHOPRIM Inactive IBUPROFEN 800 MG TABS 1 tid prn IBUPROFEN 800 MG TABS 205243 IBUPROFEN Inactive ENDOCET 10-325 MG TABS 1 q 6 hr prn ENDOC ET 10-325 MG TABS 8027404 OXYCODONE-ACETAMINOPHEN Inactive HYDROCODONE-ACETAMINOPHEN 7.5-325 MG TABS 1 by mouth e very 6 hours as needed for pain HYDROCODONE-ACETAMINOPHEN 7.5-325 MG TABS 359730 HYDROCODONE-ACETAMINOPHEN Inactive PERCOCET 7.5-325 MG TABS 1 PO q 8 hrs PRN pain PERCOCET 7.5-325 MG TABS 0782927 OXYCODONE-ACETAMINOPHEN Inactive LIDODERM 5 % PTCH One patch to painful area [place] N. On for 12 hrs, off for 12 hrs. LIDODERM 5 % PTCH 0308427 LIDOCAINE Inactiv e PERCOCET 7.5-325 MG TABS 1 PO tid PRN pain PERCOCET 7.5- 325 MG TABS 9469094 OXYCODONE-ACETAMINOPHEN Inactive MOBIC 15 MG TABS 1 tab daily MOBIC 15 MG TABS 15 2695 MELOXICAM Inactive CYCLOBENZAPRINE HCL 10 MG TABS 1/2 - 1 tab PO tid PRN back p ain, muscle spasm CYCLOBENZAPRINE HCL 10 MG TABS 860932 CYCLOBENZA JOSEPH HCL Inactive LORATADINE 10 MG TABS 1 tablet by mouth daily LORATADINE 10 MG TABS 672132 LORATADINE Inactive HYDROCODONE-ACETAMINOPHEN 10-325 MG TABS 1 by mouth ev chaka 8 hours as needed for pain HYDROCODONE-ACETAMINOPHEN 10-325 MG TABS 169930 HYDROCODONE-ACETAMINOPHEN Inactive LC-5 LIDOCAINE 5 % CREA apply 1 time daily to affected area 2013 LC-5 LIDOCAINE 5 % CREA LIDOCAINE (ANORECTAL) In active PERCOCET 5-325 MG TAB 1 every 6 hours as needed PERCOCET 5-325 MG TAB 5270761 OXYCODONE-ACETAMINOPHEN Inactive KEFLEX 500 MG CAP 1 po qid KEFLEX 500 MG CAP 30 9114 CEPHALEXIN Inactive AMOXICILLIN 875 MG TABS 1 tab by mouth twice daily 201 07/18/07 AMOXICILLIN 875 MG TABS 776463 AMOXICILLIN Inactive KEFLEX 500 MG CAP 1 po tid x 10 days KEFLEX 500 MG CAP 984256 CEPHALEXIN Inactive AMOXICILLIN 875 MG TABS 1 tab by mouth twice daily 201 07/19/27 AMOXICILLIN 875 MG TABS 125855 AMOXICILLIN Inactive AMOXICILLIN 875 MG TABS 1 tab by mouth twice daily 201 08/09/13 AMOXICILLIN 875 MG TABS 835352 AMOXICILLIN Inactive CIPRO 500 MG TAB 1 tablet by mouth twice daily CIPRO 500 MG TAB 248705 CIPROFLOXACIN HCL Inactive BACTRIM DS 800-160 MG TAB 1 tab by mouth twice daily 2 BACTRIM DS 800-160 MG TAB TRIMETHOPRIM-SULFAMETHOXAZOLE Inac tive LEVAQUIN 500 MG TABS 1 PO q day x 7 days LEVAQUIN 500 MG TABS 256909 LEVOFLOXACIN Inactive CLINDAMYCIN HCL 300 MG CAPS 1 po QID x 7 days CLINDAMYCIN HCL 300 MG CAPS 347411 CLINDAMYCIN HCL Inactive AUGMENTIN 875-125 MG TAB 1 tab by mouth twice daily with food 20 22/05/07 AUGMENTIN 875-125 MG TAB 657829 AMOXICILLIN-POT CLAVULA [place] Inactive DIFLUCAN 150 MG TAB 1 qODay x 2 doses DIFLUCAN 150 MG TAB 611350 FLUCONAZOLE Inactive PREDNISONE 20 MG TAB 2 tabs daily for 3 days, 1 t ab daily for 3 days, 1/2 tab daily for 2 days PREDNISONE 20 MG TAB 302432 PREDNISON E Inactive Advance Directives Directive Description Start Date PERMISSION TO SHARE Immunizations Vaccine Administration Date Value Standard Alf cription Seasonal influenza vaccine, injectable, containing preservative, for > 3 years old (Afluria, FluLaval, Fluzone, Fluvirin, Fluarix, Agriflu(>= 18 yo)) Fluzone (>3 yrs.) [[id number]] Influenza, seasonal, inject able Seasonal influenza vaccine, injectable, preservative free, for > 3 years old (Afluria, FluLaval, Fluzone, Fluvirin, Fluarix, Agriflu(>= 18 yo)) Fluzone preservative free (>3 yrs.) [[id number]] Influenza, seasonal, injectable, preservative free Seasonal influenza vaccine, injectable, containing preservative, for > 3 years old (Afluria, FluLaval, Fluzone, Fluvirin, Fluarix, Agriflu(>= 18 yo)) Fluzone (>3 yrs.) [[id number]] Influenza, seasonal, inject able Seasonal influenza vaccine, injectable, containing preservative, for > 3 years old (Afluria, FluLaval, Fluzone, Fluvirin, Fluarix, Agriflu(>= 18 yo)) Fluzone (>3 yrs.) [[id number]] Influenza, seasonal, inject able dT (Diphtheria and Tetanus) booster given Histor ical Td(adult) unspecified formulation Vital Signs Date Name Value Unit Range Description blood pressure, diastolic - 8462-4 83 mm[Hg] [...] Name Value Unit Range Description Office Visit: low blood sugars - Chemis try cholesterol, target level 200 mg/dL triglyceride, target level 200 mg/dL HDL cholesterol, serum, target level 35 mg/dL LDL target level 100 mg/dL Encounters Code Encounter Date Provider Facility CPT-12149 Level 3 New Patient 15:47:11 [employer] Bj huber MD [facility] CPT-80590 Level 4 Est. Patient 14:37:38 [employer] Abdirahman Rios MD [facility] CPT-82721 Level 2 Est. Patient 13:32:17 [employer] Kalpesh goins MD [facility]-50653 Level 3 Est. Patient 17:32:57 [employer] Edilbreto tiwari [facility] CPT-70572 Level 3 Est. Patient 17:22:33 [employer] Edilberto tiwari [facility] CPT-63656 Level 2 Est. Patient 16:57:09 [employer] Kalpesh goins MD [facility] CPT-83782 Level 3 Est. Patient 14:03:08 [employer] Abdirahman Rios MD [facility] CPT-52069 Level 3 Est. Patient 18:12:34 CDT Shola Wright [facility] CPT-80667 Level 3 Est. Patient 19:34:46 CDT Shola Wright [facility] CPT-63299 Level 3 Est. Patient 14:19:37 CDT Abdirahman Rios MD [facility] CPT-80502 Level 3 Est. Patient 14:11:58 CDT Kalpesh goins MD [facility] CPT-99844 Level 3 Est. Patient 16:50:00 CDT Michelle MERCDAO [facility] CPT-67454 Level 3 Est. Patient 17:11:32 [employer] Brandie bates MD PhD [facility] CPT-98285 Level 3 Est. Patient 16:31:47 [employer] Shola Wright [facility] CPT-31149 Level 3 Est. Patient 17:51:10 [employer] Abhinav Galvan MD [facility] CPT-32999 Level 4 Est. Patient 12:54:56 [employer] Kalpesh goins MD [facility]-08531 Level 4 Est. Patient 12:53:56 [employer] Kalpesh goins MD [facility]-69408 Level 3 Est. Patient 17:56:58 CDT Shola Wright [facility] CPT-32357 Level 3 Est. Patient 14:26:20 CDT Janak butcher [facility] CPT-17920 Level 3 Est. Patient 09:38:41 CDT Shola Thao Adriana [facility] CPT-80661 Level 3 Est. Patient 14:45:26 CDT Edilberto tiwari [facility]-12789 Level 3 Est. Patient 10:51:33 CDT Hira muniz [facility] CPT-89327 Level 3 Est. Patient 11:57:55 [employer] Shola Thao Adriana [facility] CPT-93963 Level 3 Est. Patient 09:53:33 [employer] Edilberto tiwari [facility] CPT-40793 Level 3 Est. Patient 14:42:54 [employer] Abhinav Galvan MD [facility] CPT-81014 Level 3 Est. Patient 15:10:02 CDT Janak butcher [facility] CPT-53109 Level 3 Est. Patient 15:20:20 CDT Theo dennis MD [facility] CPT-57648 Level 2 Est. Patient 14:08:57 CDT Kalpesh goins MD [facility]-09131 Level 3 Est. Patient 13:56:19 CDT Abdirahman Rios MD [facility] CPT-40978 Level 3 Est. Patient 13:59:37 CDT Abdirahman Rios MD [facility] CPT-35001 Level 2 Est. Patient 14:44:59 CDT Kalpesh goins MD [facility] CPT-32532 Level 3 Est. Patient 06:06:23 CDT Edilberto tiwari DO [facility] CPT-16355 Level 3 Est. Patient 15:23:54 CDT Abdirahman Rios MD [facility] CPT-40243 Level 3 Est. Patient 15:43:49 CDT Abdirahman Rios MD [facility] CPT-56360 Level 3 Est. Patient 12:46:47 [employer] Abdirahman Rios MD [facility] CPT-61082 Level 3 Est. Patient 08:13:35 [employer] Abdirahman Rios MD [facility] CPT-94034 Level 2 Est. Patient 09:36:42 [employer] Abdirahman Rios MD [facility] CPT-10015 Level 3 Est. Patient 10:56:43 CDT Abdirahman Rios MD [facility] CPT-65852 Level 3 Est. Patient 18:24:52 CDT Abdirahman Rios MD [facility] CPT-46600 Level 3 Est. Patient 13:27:22 CDT Abdirahman Rios MD [facility] Procedures Code Procedure Name Date Entry Date Standard Desc ription CPT-22029 Postop F/U Visit 11:29:00 [employer] CPT-J0696 Rocephin 1000 mg (Ceftriaxone) 17:22:33 [employer] CPT-56582 Postop F/U Visit 18:41:07 [employer] CPT-86032 Postop F/U Visit 08:19:08 [employer] CPT-88427 Immunization Single Admin 16:41:53 CDT 2013 CPT-79154 Fluzone Quadrivalent Intramuscular Suspe nsion 0.5 ML 16:41:53 CDT CPT-OV Office Visit 16:39:18 CDT CPT-OV Office Visit 16:16:36 CDT CPT-OV Office Visit 15:34:48 CDT CPT-90734 Postop F/U Visit 14:50:12 CDT CPT-58451 Postop F/U Visit 14:41:10 CDT CPT-35387 Venipuncture Draw Fee 11:38:04 [employer] CPT-67122 Postop F/U Visit 19:02:59 [employer] CPT-50068 Postop F/U Visit 12:04:54 [employer] CPT-34755 Administration single or combination vac cine inc oral 15:56:43 CDT CPT-36316 Influenza split virus > age 3 15:56:43 CDT CPT-58704 Hand comp min 3V 14:25:19 CDT CPT-50180 Postop F/U Visit 21:40:51 CDT CPT-61464 Postop F/U Visit 10:58:43 CDT CPT-79477 Administration single or combination vac cine inc oral 12:33:54 [employer] CPT-37339 Influenza Preservative Free split virus >age 3 12:33:54 [employer] CPT-94346 Administration single or combination vac cine inc oral 09:30:51 CDT CPT-66679 Influenza split virus > age 3 09:30:51 CDT CPT-61358 Postop F/U Visit 15:14:53 CDT CPT-73136 Postop F/U Visit 13:50:14 CDT CPT-30503 Postop F/U Visit 13:34:52 CDT CPT-OV Office Visit 16:55:03 CDT CPT-01666 [place] of cervix w bx ECC 13:32:50 CDT 10/19 CPT-J1885 Toradol 60 mg (Ketorolac) 15:31:59 CDT 2011 CPT-J1885 Toradol 60 mg (Ketorolac) 15:23:54 CDT 2011 CPT-66915 Visit 11:34:37 [employer] CPT-30912 Visit 10:52:39 [employer] CPT-40382 Visit 10:12:02 [employer] CPT-80731 Visit 11:22:43 [employer] CPT-26314 Visit 11:24:12 [employer] CPT-66027 Visit 10:47:05 [employer] CPT-OV Office Visit 10:26:16 [employer] CPT-OV Office Visit 15:34:31 [employer] CPT-99914 Visit 10:42:08 [employer] CPT-98845 Visit 10:52:45 TOWER [employer] CPT-000 Give Appropriate Flu Vaccine 16:56:41 CDT 2 CPT-26962 Administration single or combination vac cine inc oral 10:33:21 CDT CPT-95782 Influenza split virus > age 3 10:33:21 CDT CPT-76490 Visit 13:23:09 CDT CPT-68514 Visit 18:24:52 CDT CPT-61841 Sono OB comp > 14 weeks 12:07:49 CDT 04/07
--- OUTSIDE RECORDS SUMMARY | 2020-01-18 16:57 | XMS REPORT ---
Author Author [facility] Medic al Staff, TOMY Rashid Organization [facility] Address [address], [place] [id number] Phone [phone] Care Team Providers Care Registered Nurse Ambulatory Name Role Phone CAROLEE WHITE MD PP [phone] CAROLEE WHITE MD PP [phone] Summary purpose TRANSITION OF CARE AUTO GENERATION Chief Complaint and Reason for Visit Admit Diagnosis 1 E/O HYDRANITIS RIGHT BUTTOCK AND INNER Admit Diagnosis 2 THIGH, APRIL BREAST Problem list No authorized problems tracked for [...] Finding Observation Time Hearing Prob Loc none :39 Vision Problems yes :39 Vision Correct Dev glasses :39 Ambulation Asst Dev none :39 Range of Motion full :05 Muscle Strength RUE 5 ROM full resist :05 Muscle Strength RLE 5 ROM full resist :05 Muscle Strength LUE 5 ROM full resist :05 Muscle Strength LLE 5 ROM full resist :05 Transfers other (specify) Comment: via cart :05 Ambulation none Comment: immediate return from the rr :05 Balance steady :03 Bathing Assistance none :39 Eating Assistance none :39 Dressing Assistance none :39 Toileting Assistance none :39 Transfer Assistance none :39 Decline Slf Care/Mob no :39 Phys Cond Stable yes :39 Nutrition normal :05 Diet NPO :05 Oral Cavity moist and intact :05 Teeth none :05 Dental Hygiene poor :05 Abdomen Appearance obese :05 Abdomen soft :05 Bowel Sounds present :05 NG Tube no :05 Feeding Tube none :05 Ramírez no :05 Cont Bladder Irr no :05 Ostomy no :05 Stool normal :03 Urination normal :03 Quality sym/unlabored :05 Cough absent :05 Secretions no :05 Breath Sounds RUL clear :05 Breath Sounds RML clear :05 Breath Sounds RLL clear :05 Breath Sounds SARA clear :05 Breath Sounds LLL clear :05 Airway natural :05 Chest Tube no :05 Oxygen no :45 C-PAP no :05 BI-PAP no :05 Temp >100.4 no :05 Temp <96.8 no :05 Chills with rigors no :05 HR > 90bpm no [id number] Respirations > 20 no :05 Systolic <90 no :05 headache stiff neck no :05 Rapid Resp no :05 IV Site Location Lt AC :50 IV Type peripheral :50 IV Site Information discontinued :50 IV Site Start Attmpt 7 times Comment: attempts by Lizandro Mendoza, Ayaka Mccormick, and Alisa Morgan, TOM [id number] IV Site Isael 20 :50 IV Site Appearance WNL :50 IV Site Color clear :50 IV Site Patent yes :50 Dressing Changed yes :50 Dressing Type gauze :50 Nursing Note Pt et significant other verb alized understanding of et left with dc instructions, percocet et ibuprofen scripts et personal belongings. Pt denies any further pain. Pt's aware of her f/u appt w/ 08/27/14 at 1520 at [address] [facility]. Pt's aware to contact the dr or the er with any concerns. Pt left ambulatory in good condition accompanied out by myself. Her significant other is to take her home. :00 Cognitive Status Finding Observation Time Learning Ability comprehends well : Neurological no :00 Psychological no :00 Physical no :00 Hearing no :00 Dredge Mate Needed no :00 Sign Language no :00 Emotional no :00 Vision yes :00 Laguage no :00 Financial no :00 Vital signs Type Value Date Respiration Rate 18breaths per minute : 45 Pulse 79beats per minute :45 Oxygen Saturation 99% :45 BP Systolic 118mmHg :45 BP Diastolic 68mmHg [id number]:45 Temperature 98.3F [id number]:05 Height 66inches [id number]:36 Weight 234LB [id number]:36 Social history Type Value Smoking Status CURRENT EVERY DAY SMOKER Treatment Plan No treatment plan text is available for this visit. Hospital discharge instructions Discharge Date/Time 08/20/14 @ 1400 Relationship spouse/signif other Dismissal Condition good Disposition on DC home Valuables no DC Inst/Educ Give yes Exit Care Educ Given yes Med/Side Effects Rev yes PNE Vac never Flu Vac 04/2014 Tetanus Vac 06/2013 Follow up appt appt made (specify) Comment: 08/27/14 @ [address] [facility]
--- OUTSIDE RECORDS SUMMARY | 2020-01-18 16:58 | XMS REPORT | Clinical Summary ---
Author Author Admin, Jeri Rashid Organization [facility] Address Unknown Phone Unavailable Allergies, Adverse Reactions, [...] Rios MD Back strain ICD-847.9 Inactive Abdirahman Riso MD Sinusitis, acute ICD-461.9 Inactive Abdirahman Casas MD AFTERCARE FOLLOW SURGERY SKIN&SUBCUT TISSUE NEC ICD-V58.77 Inactive Abdirahman Rios MD Impetigo ICD-684 Inactive Abdirahman Rios MD 08/24 Medication List Medication Instructions Start Date Stop Date Generic Name NDC Status Provider Patient Instruction ALPRAZOLAM 0.5 MG TABS 1 po BID PRN Anxiety ALPRA ZOLAM 26388816332 Active Abdirahman Rios MD Active EMLA 2.5-2.5 % EXT CREA apply to skin lesion q 6 hours, prn LIDOCAINE-PRILOCAINE 78331385361 Active Hira Moser APRN Active CYCLOBENZAPRINE HCL 10 MG TABS 1 tablet by mouth three times daily as needed for muscle spasm/pain CYCLOBENZAPRINE HCL 87622816461 Active Abdirahman Rios MD Active PREDNISONE 20 MG TAB 2 tabs daily for 3 days, 1 t ab daily for 3 days, 1/2 tab daily for 2 days PREDNISONE 79519758929 No Longer Active Abdirahman iRos MD Active KEFLEX 500 MG CAP 1 po qid CEPHALEXIN 781072476 20 No Longer Active Kalpesh Dong MD Active PERCOCET 5-325 MG TAB 1 every 6 hours as needed OXYCODONE-ACETAMINOPHEN 06987429604 No Longer Active Shola MCGILL Active LC-5 LIDOCAINE 5 % CREA apply 1 time daily to affected area 2013 LIDOCAINE (ANORECTAL) 75024754368 No Longer Active Hira muniz APRN Active HYDROCODONE-ACETAMINOPHEN 5-325 MG TABS 2 tablets by m outh every 8 hours as needed for pain HYDROCODONE-ACETAMINOPHEN 58971946248 Acti ve Abdirahman Rios MD Active HYDROCODONE-ACETAMINOPHEN 10-325 MG TABS 1 by mouth ev chaka 8 hours as needed for pain HYDROCODONE-ACETAMINOPHEN 53717466555 No Longer Active Hira Moser APRN Active LORATADINE 10 MG TABS 1 tablet by mouth daily L ORATADINE 24106037824 No Longer Active Hira Moser APRN Active DIFLUCAN 150 MG TAB 1 qODay x 2 doses FLUCONAZO LE 28733122135 No Longer Active Hira Moser APRN Active CYCLOBENZAPRINE HCL 10 MG TABS 1/2 - 1 tab PO tid PRN back p ain, muscle spasm CYCLOBENZAPRINE HCL 17108275657 No Longer Active Karen herson Frazell SODIUM METHYLATE OPERATOR Active AUGMENTIN 875-125 MG TAB 1 tab by mouth twice daily with food 20 22/05/07 AMOXICILLIN-POT CLAVULANATE 91029617902 No Longer Active Loida Rios MD Active MOBIC 15 MG TABS 1 tab daily MELOXICAM 481915767 14 No Longer Active Abdirahman Rios MD Active PERCOCET 7.5-325 MG TABS 1 PO tid PRN pain OXYCODONE-ACETAMINOPHEN 82983661976 No Longer Active Abdirahman Rios MD Active LIDODERM 5 % PTCH One patch to painful area NE N. On for 12 hrs, off for 12 hrs. LIDOCAINE 16199942935 No Longer Active Abdirahman Rios MD Active PERCOCET 7.5-325 MG TABS 1 PO q 8 hrs PRN pain OXYCODONE-ACETAMINOPHEN 65283569567 No Longer Active Shola MCGILL Active HYDROCODONE-ACETAMINOPHEN 7.5-325 MG TABS 1 by mouth e very 6 hours as needed for pain HYDROCODONE-ACETAMINOPHEN 32962267990 No Longer Active Good Julian MD Active CLINDAMYCIN HCL 300 MG CAPS 1 po QID x 7 days CLINDAMYCIN HCL 05888010222 No Longer Active Abdirahman Rios MD Activ e BACTRIM DS 800-160 MG TABS 1 po BID x 7 days 5 SULFAMETHOXAZOLE-TRIMETHOPRIM 34066138731 No Longer Active Abdirahman Rios MD Active ENDOCET 10-325 MG TABS 1 q 6 hr prn OXYCODONE-ACETAMINOPHEN 23504370360 No Longer Active Abdirahman Rios MD Active IBUPROFEN 800 MG TABS 1 tid prn IBUPROFEN 861506 29348 No Longer Active Abdirahman Rios MD Active BACTRIM DS 800-160 MG TABS by mouth twice a day 11/05 SULFAMETHOXAZOLE-TRIMETHOPRIM 54292149457 No Longer Active Good Julian MD Active HYDROCODONE-ACETAMINOPHEN 7.5-325 MG TABS 1 four times a day as needed for pain HYDROCODONE-ACETAMINOPHEN 71044025087 No Longer Activ e Good Julian MD Active KEFLEX 500 MG CAP 1 tab po tid CEPHALEXIN 494962 69087 No Longer Active Hira Moser APRN Active IBUPROFEN 800 MG TAB 1 pill three times daily as needed for pain IBUPROFEN 86619975134 No Longer Active Kalpesh Dong MD Active PROMETHAZINE-CODEINE 6.25-10 MG/5ML SYRP 1 tsp every 6 hrs prn c ough PROMETHAZINE-CODEINE 42988793605 No Longer Active Kalpesh Carr Active HYDROCODONE-ACETAMINOPHEN 5-325 MG TABS 1 tab by mouth every 6 hours as needed HYDROCODONE-ACETAMINOPHEN 66290403154 No Longer Activ e Shola MCGILL Active CEPHALEXIN 500 MG CAPS 1 PO bid x 7 days CEPHAL EXIN 15083173567 No Longer Active Shola MCGILL Active BACTRIM DS 800-160 MG TAB 1 tab by mouth twice daily 2 TRIMETHOPRIM-SULFAMETHOXAZOLE 67260880149 No Longer Active Kalpesh Dong MD Active HYDROCODONE-ACETAMINOPHEN 5-325 MG TABS 1 PO tid PRN pain 5 HYDROCODONE-ACETAMINOPHEN 08239416497 No Longer Active Abhinav Galvan MD Active IMPLANON 68 MG IMPL IMPLANTED IN LEFT ARM ETONO GESTREL 38156028739 No Longer Active Hira Moser APRN Active AMOXICILLIN 500 MG TABS 2 tabs PO bid x 10 d AM OXICILLIN 89701530691 No Longer Active Kalpesh Dong MD Active LEVAQUIN 500 MG TABS 1 PO q day x 7 days LEVOFL OXACIN 95767916421 No Longer Active Shola MCGILL Active PROAIR HFA 108 (90 BASE) MCG/ACT AERS 2 puff q 4-6 hrs PRN ALBUTEROL SULFATE 48025239227 Active Edilberto Marino DO Active FIORICET 50-325-40 MG TABS 2 PO q 8 hrs PRN FOSTER [id number] Active Abdirahman Rios MD Active AMITRIPTYLINE HCL 25 MG TAB 1 tab by mouth daily 60 minutes before bedtime AMITRIPTYLINE HCL 12962965157 No Longer Active Shola MCGILL Active LORTAB 5 5-500 MG TABS 1/2 to 1 tablet by mouth go ry 6 hours as needed for pain HYDROCODONE-ACETAMINOPHEN 50489213902 No Longer Active Shola MCGILL Active CEPHALEXIN 500 MG TABS Take one by mouth four times daily, morning, noon, early evening and bedtime. CEPHALEXIN 98040573677 No Long er Active Hira Moser APRN Active TYLENOL/CODEINE #3 300-30 MG TAB 1-2 po q6hr PRN Pain ACETAMINOPHEN-CODEINE 54998048700 No Longer Active Edilberto Marino DO Active PRISTIQ 50 MG PR36O-JTG 1 po qd DESVENLAFAXI NE SUCCINATE 10951936957 No Longer Active Edilberto Marino DO Active PENICILLIN V POTASSIUM 500 MG TAB 1 four times a day 2 PENICILLIN V POTASSIUM 10634212026 No Longer Active Edilberto Marino DO Active DOXYCYCLINE HYCLATE 100 MG CAPS Take one (1) tablet by mouth twice a day DOXYCYCLINE HYCLATE 31291332482 No Longer Active Ronnie Galvan MD Active HYDROCODONE-ACETAMINOPHEN 5-325 MG TABS 1 po q 6hr PRN Pain 2011 HYDROCODONE-ACETAMINOPHEN 44238594041 No Longer Active Jerson Perez RN Active BACTRIM DS 800-160 MG TAB 1 tab by mouth twice daily 2 TRIMETHOPRIM-SULFAMETHOXAZOLE 77104145266 No Longer Active Kalpesh Dong MD Active LORTAB 5 5-500 MG TABS 1/2 to 1 tablet by mouth go ry 4 hours as needed for pain HYDROCODONE-ACETAMINOPHEN 39720607651 No Longer Active Kalpesh Dong MD Active GENERESS FE 0.8-25 MG-MCG CHEW Take one by mouth daily NORETHIN-ETH ESTRADIOL-FE 70049978088 No Longer Active Kalpesh Dong MD Active HYDROCODONE-ACETAMINOPHEN 7.5-500 MG TABS 1-2 every 4 hours as needed HYDROCODONE-ACETAMINOPHEN 71779526432 No Longer Activ e Kalpesh Dong MD Active FERROUS SULFATE 325 (65 FE) MG TABS 1 tablet by mouth twice yung y FERROUS SULFATE 85564790751 No Longer Active Kalpesh Dong MD Active IBUPROFEN 600 MG TAB 1 po q6-8hr PRN IBUPROFEN 23899937283 No Longer Active Kalpesh Dong MD Active SPIRONOLACTONE 25 MG TAB 1 tablet by mouth daily 01/22 SPIRONOLACTONE 07931604254 No Longer Active Kalpesh Dong MD Acti ve HYDROCODONE-ACETAMINOPHEN 7.5-325 MG TABS 1 po QID PRN Pain 2011 HYDROCODONE-ACETAMINOPHEN 70582757844 No Longer Active Kalpesh Dong MD Active CLINDAMYCIN HCL 300 MG CAPS 1 po q6hr x 7 days CLINDAMYCIN HCL 99844179747 No Longer Active Edilberto Marino DO Active PREDNISONE 20 MG TAB 2 tabs daily for 4 days, 1 t ab daily for 4 days, 1/2 tab daily for 4 days PREDNISONE 41369915524 No Longer Active Edilberto Marino DO Active PERCOCET 5-325 MG TABS 1 tablet by mouth every 6 hours as ne eded for pain OXYCODONE-ACETAMINOPHEN 86526481071 No Longer Active Abdirahman Rios MD Active VITAMINS TABS Take one by mouth daily MV & MIN W/FE-FA TABS 14464769084 No Longer Active Abdirahman Rios MD Active LUIS 3-0.02 MG TABS 1 tablet by mouth daily as directed DROSPIRENONE-ETHINYL ESTRADIOL 81580481070 No Longer Active Abdirahman Rios MD Active LORATADINE 10 MG TABS 1 tablet by mouth daily L ORATADINE 85322725605 No Longer Active Kalpesh Dong MD Active HYDROCODONE-ACETAMINOPHEN 5-325 MG TABS 1 po q 6hr PRN Pain 2010 HYDROCODONE-ACETAMINOPHEN 14965788577 No Longer Active Edilberto Marino DO Active BACTRIM DS 800-160 MG TAB 1 tab by mouth twice daily 2 TRIMETHOPRIM-SULFAMETHOXAZOLE 55732180597 No Longer Active Abdirahman Rios MD Active 28-0.8 MG TABS Take one by mouth daily 09/20 VIT-FE FUMARATE-FA 25552603692 No Longer Active Abdirahman Rios MD Active CIPRO 500 MG TAB 1 tablet by mouth twice daily CIPROFLOXACIN HCL 45986382181 No Longer Active Abdirahman Rios MD Active BENADRYL 25 MG CAP 1 po q8hr PRN Congestion DIPHENHYDRAMINE HCL 52195706009 No Longer Active Abdirahman Rios MD Active ZOLOFT 50 MG TAB 1 po qd SERTRALINE HCL 241163 51878 No Longer Active Abdirahman Rios MD Active AMOXICILLIN 875 MG TABS 1 tab by mouth twice daily 201 08/09/13 AMOXICILLIN 44556152686 No Longer Active Abdirahman Rios MD Activ e AMOXICILLIN 875 MG TABS 1 tab by mouth twice daily 201 07/19/27 AMOXICILLIN 00531200351 No Longer Active Abdirahman Rios MD Activ e BACTRIM DS 800-160 MG TAB 2 tab by mouth twice daily 2 TRIMETHOPRIM-SULFAMETHOXAZOLE 53243964871 No Longer Active Abdirahman Rios MD Active KEFLEX 500 MG CAP 1 po tid x 10 days CEPHALEXIN 51735306048 No Longer Active Abdirahman Rios MD Active AMOXICILLIN 875 MG TABS 1 tab by mouth twice daily 201 07/18/07 AMOXICILLIN 09537266730 No Longer Active Abdirahman Rios MD Activ e BACTRIM DS 800-160 MG TAB 2 tab by mouth twice daily 2 BACTRIM DS 800-160 MG TAB TRIMETHOPRIM-SULFAMETHOXAZOLE Inactive ZOLOFT 50 MG TAB 1 po qd ZOLOFT 50 MG TAB 3129 41 SERTRALINE HCL Inactive BENADRYL 25 MG CAP 1 po q8hr PRN Congestion BENADRYL 25 MG CAP 9087139 DIPHENHYDRAMINE HCL Inactive 28-0.8 MG TABS Take one by mouth daily 09/20 28-0.8 MG TABS VIT-FE FUMARATE-FA Inactive HYDROCODONE-ACETAMINOPHEN 5-325 MG TABS 1 po q 6hr PRN Pain 2010 HYDROCODONE-ACETAMINOPHEN 5-325 MG TABS 385108 HYDROCODONE-ACETAMINOPHEN Inactive LORATADINE 10 MG TABS 1 tablet by mouth daily LORATADINE 10 MG TABS 661693 LORATADINE Inactive LUIS 3-0.02 MG TABS 1 tablet by mouth daily as directed LUIS 3-0.02 MG TABS DROSPIRENONE-ETHINYL ESTRADIOL Inactive VITAMINS TABS Take one by mouth daily VITAMINS TABS MV & MIN W/FE-FA TABS Inactive PERCOCET 5-325 MG TABS 1 tablet by mouth every 6 hours as ne eded for pain PERCOCET 5-325 MG TABS 0799684 OXYCODONE-ACETAMIN OPHEN Inactive PREDNISONE 20 MG TAB 2 tabs daily for 4 days, 1 t ab daily for 4 days, 1/2 tab daily for 4 days PREDNISONE 20 MG TAB 556389 PREDNISON E Inactive CLINDAMYCIN HCL 300 MG CAPS 1 po q6hr x 7 days CLINDAMYCIN HCL 300 MG CAPS 838009 CLINDAMYCIN HCL Inactive HYDROCODONE-ACETAMINOPHEN 7.5-325 MG TABS 1 po QID PRN Pain 2011 HYDROCODONE-ACETAMINOPHEN 7.5-325 MG TABS 579151 HYDROCODONE-ACETAMINOPHEN Inactive SPIRONOLACTONE 25 MG TAB 1 tablet by mouth daily 01/22 SPIRONOLACTONE 25 MG TAB 875227 SPIRONOLACTONE Inactive IBUPROFEN 600 MG TAB 1 po q6-8hr PRN IBUPROFEN 600 MG TAB 191265 IBUPROFEN Inactive FERROUS SULFATE 325 (65 FE) MG TABS 1 tablet by mouth twice yung y FERROUS SULFATE 325 (65 FE) MG TABS 862691 FERROUS SULF ATE Inactive HYDROCODONE-ACETAMINOPHEN 7.5-500 MG [...] PRN Pain 2011 HYDROCODONE-ACETAMINOPHEN 5-325 MG TABS 913853 HYDROCODONE-ACETAMINOPHEN Inactive DOXYCYCLINE HYCLATE 100 MG CAPS Take one (1) tablet by mouth twice a day DOXYCYCLINE HYCLATE 100 MG CAPS 490481 DOXYCYCLINE HYCLATE Inactive PENICILLIN V POTASSIUM 500 MG TAB 1 four times a day 2 PENICILLIN V POTASSIUM 500 MG TAB 481168 PENICILLIN V POTASSIUM [place] [facility] PRISTIQ 50 MG [id number] 1 po qd PRISTIQ 50 MG [id number] DESVENLAFAXINE SUCCINATE Inactive TYLENOL/CODEINE #3 300-30 MG TAB 1-2 po q6hr PRN Pain TYLENOL/CODEINE #3 300-30 MG TAB 716401 ACETAMINOPHEN-CODEINE Inact krishna CEPHALEXIN 500 MG TABS Take one by mouth four times daily, morning, noon, early evening and bedtime. CEPHALEXIN 500 MG TABS 426765 CEPHALEXIN Inactive LORTAB 5 5-500 MG TABS 1/2 to 1 tablet by mouth go ry 6 hours as needed for pain LORTAB 5 5-500 MG TABS HYDROCODONE-A CETAMINOPHEN Inactive AMITRIPTYLINE HCL 25 MG TAB 1 tab by mouth daily 60 minutes before bedtime AMITRIPTYLINE HCL 25 MG TAB 316470 AMITRIPTYLINE HCL Inactive AMOXICILLIN 500 MG TABS 2 tabs PO bid x 10 d 7 AMOXICILLIN 500 MG TABS 394680 AMOXICILLIN Inactive IMPLANON 68 MG IMPL IMPLANTED IN LEFT ARM IMPLANON 68 MG IMPL ETONOGESTREL Inactive HYDROCODONE-ACETAMINOPHEN 5-325 MG TABS 1 PO tid PRN pain 5 HYDROCODONE-ACETAMINOPHEN 5-325 MG TABS 177680 HYDROCODONE-ACETAMIN OPHEN Inactive BACTRIM DS 800-160 MG TAB 1 tab by mouth twice daily 2 BACTRIM DS 800-160 MG TAB TRIMETHOPRIM-SULFAMETHOXAZOLE Inac tive CEPHALEXIN 500 MG CAPS 1 PO bid x 7 days CEPHALEXIN 500 MG CAPS 235943 CEPHALEXIN Inactive HYDROCODONE-ACETAMINOPHEN 5-325 MG TABS 1 tab by mouth every 6 hours as needed HYDROCODONE-ACETAMINOPHEN 5-325 MG TABS 669374 HYDROCODONE-ACETAMINOPHEN Inactive PROMETHAZINE-CODEINE 6.25-10 MG/5ML SYRP 1 tsp every 6 hrs prn c ough PROMETHAZINE-CODEINE 6.25-10 MG/5ML SYRP 393490 PROMETH AZINE-CODEINE Inactive IBUPROFEN 800 MG TAB 1 pill three times daily as needed for pain IBUPROFEN 800 MG TAB IBUPROFEN Inactive KEFLEX 500 MG CAP 1 tab po tid KEFLEX 500 MG CAP 563127 CEPHALEXIN Inactive HYDROCODONE-ACETAMINOPHEN 7.5-325 MG TABS 1 four times a day as needed for pain HYDROCODONE-ACETAMINOPHEN 7.5-325 MG TABS 214357 HYDROCODONE-ACETAMINOPHEN Inactive BACTRIM DS 800-160 MG TABS by mouth twice a day 11/05 BACTRIM DS 800-160 MG TABS SULFAMETHOXAZOLE-TRIMETHOPRIM Inactive IBUPROFEN 800 MG TABS 1 tid prn IBUPROFEN 800 MG TABS 698077 IBUPROFEN Inactive ENDOCET 10-325 MG TABS 1 q 6 hr prn ENDOC ET 10-325 MG TABS 3783108 OXYCODONE-ACETAMINOPHEN Inactive HYDROCODONE-ACETAMINOPHEN 7.5-325 MG TABS 1 by mouth e very 6 hours as needed for pain HYDROCODONE-ACETAMINOPHEN 7.5-325 MG TABS 729934 HYDROCODONE-ACETAMINOPHEN Inactive PERCOCET 7.5-325 MG TABS 1 PO q 8 hrs PRN pain PERCOCET 7.5-325 MG TABS 7058636 OXYCODONE-ACETAMINOPHEN Inactive LIDODERM 5 % PTCH One patch to painful area NE N. On for 12 hrs, off for 12 hrs. LIDODERM 5 % PTCH 4623951 LIDOCAINE Inactiv e PERCOCET 7.5-325 MG TABS 1 PO tid PRN pain PERCOCET 7.5- 325 MG TABS 2312458 OXYCODONE-ACETAMINOPHEN Inactive MOBIC 15 MG TABS 1 tab daily MOBIC 15 MG TABS 15 2695 MELOXICAM Inactive CYCLOBENZAPRINE HCL 10 MG TABS 1/2 - 1 tab PO tid PRN back p ain, muscle spasm CYCLOBENZAPRINE HCL 10 MG TABS 474365 CYCLOBENZA JOSEPH HCL Inactive LORATADINE 10 MG TABS 1 tablet by mouth daily LORATADINE 10 MG TABS 634911 LORATADINE Inactive HYDROCODONE-ACETAMINOPHEN 10-325 MG TABS 1 by mouth ev chaka 8 hours as needed for pain HYDROCODONE-ACETAMINOPHEN 10-325 MG TABS 214096 HYDROCODONE-ACETAMINOPHEN Inactive LC-5 LIDOCAINE 5 % CREA apply 1 time daily to affected area 2013 LC-5 LIDOCAINE 5 % CREA LIDOCAINE (ANORECTAL) In active PERCOCET 5-325 MG TAB 1 every 6 hours as needed PERCOCET 5-325 MG TAB 7548868 OXYCODONE-ACETAMINOPHEN Inactive KEFLEX 500 MG CAP 1 po qid KEFLEX 500 MG CAP 30 9114 CEPHALEXIN Inactive AMOXICILLIN 875 MG TABS 1 tab by mouth twice daily 201 07/18/07 AMOXICILLIN 875 MG TABS 835978 AMOXICILLIN Inactive KEFLEX 500 MG CAP 1 po tid x 10 days KEFLEX 500 MG CAP 292454 CEPHALEXIN Inactive AMOXICILLIN 875 MG TABS 1 tab by mouth twice daily 201 07/19/27 AMOXICILLIN 875 MG TABS 571386 AMOXICILLIN Inactive AMOXICILLIN 875 MG TABS 1 tab by mouth twice daily 201 08/09/13 AMOXICILLIN 875 MG TABS 107134 AMOXICILLIN Inactive CIPRO 500 MG TAB 1 tablet by mouth twice daily CIPRO 500 MG TAB 243375 CIPROFLOXACIN HCL Inactive BACTRIM DS 800-160 MG TAB 1 tab by mouth twice daily 2 BACTRIM DS 800-160 MG TAB TRIMETHOPRIM-SULFAMETHOXAZOLE Inac tive LEVAQUIN 500 MG TABS 1 PO q day x 7 days LEVAQUIN 500 MG TABS 944440 LEVOFLOXACIN Inactive CLINDAMYCIN HCL 300 MG CAPS 1 po QID x 7 days CLINDAMYCIN HCL 300 MG CAPS 307756 CLINDAMYCIN HCL Inactive AUGMENTIN 875-125 MG TAB 1 tab by mouth twice daily with food 20 22/05/07 AUGMENTIN 875-125 MG TAB 956948 AMOXICILLIN-POT CLAVULA [place] Inactive DIFLUCAN 150 MG TAB 1 qODay x 2 doses DIFLUCAN 150 MG TAB 363878 FLUCONAZOLE Inactive PREDNISONE 20 MG TAB 2 tabs daily for 3 days, 1 t ab daily for 3 days, 1/2 tab daily for 2 days PREDNISONE 20 MG TAB 858495 PREDNISON E Inactive Advance Directives Directive Description Start Date PERMISSION TO SHARE Immunizations Vaccine Administration Date Value Standard Alf cription Seasonal influenza vaccine, injectable, containing preservative, for > 3 years old (Afluria, FluLaval, Fluzone, Fluvirin, Fluarix, Agriflu(>= 18 yo)) Fluzone (>3 yrs.) [[id number]] Influenza, seasonal, inject able Seasonal influenza vaccine, injectable, preservative free, for > 3 years old (Afluria, FluLaval, Fluzone, Fluvirin, Fluarix, Agriflu(>= 18 yo)) Fluzone preservative free (>3 yrs.) [[id number]] Influenza, seasonal, injectable, preservative free Seasonal influenza vaccine, injectable, containing preservative, for > 3 years old (Afluria, FluLaval, Fluzone, Fluvirin, Fluarix, Agriflu(>= 18 yo)) Fluzone (>3 yrs.) [[id number]] Influenza, seasonal, inject able Seasonal influenza vaccine, injectable, containing preservative, for > 3 years old (Afluria, FluLaval, Fluzone, Fluvirin, Fluarix, Agriflu(>= 18 yo)) Fluzone (>3 yrs.) [[id number]] Influenza, seasonal, inject able dT (Diphtheria and [...] negative Encounters Code Encounter Date Provider Facility CPT-23706 Level 3 New Patient 15:47:11 SOFTWARE SUPPORT TECHNICIAN Bj huber MD [facility]-69239 Level 4 Est. Patient 14:37:38 SOFTWARE SUPPORT TECHNICIAN Abdirahman Rios MD [facility] CPT-64038 Level 2 Est. Patient 13:32:17 SOFTWARE SUPPORT TECHNICIAN Kalpesh goins MD [facility]-65495 Level 3 Est. Patient 17:32:57 SOFTWARE SUPPORT TECHNICIAN Edilberto tiwari [facility] CPT-49337 Level 3 Est. Patient 17:22:33 SOFTWARE SUPPORT TECHNICIAN Edilberto tiwari [facility] CPT-19739 Level 2 Est. Patient 16:57:09 SOFTWARE SUPPORT TECHNICIAN Kalpesh goins MD [facility]-40405 Level 3 Est. Patient 14:03:08 SOFTWARE SUPPORT TECHNICIAN Abdirahman Rios MD [facility]-23064 Level 3 Est. Patient 18:12:34 CDT Shola Wright [facility] CPT-33911 Level 3 Est. Patient 19:34:46 CDT Shola Wright [facility]-51274 Level 3 Est. Patient 14:19:37 CDT Abdirahman Rios MD [facility]-69790 Level 3 Est. Patient 14:11:58 CDT Kalpesh goins MD [facility]-70126 Level 3 Est. Patient 16:50:00 CDT Michelle BRADFORDP [facility] CPT-45386 Level 3 Est. Patient 17:11:32 SOFTWARE SUPPORT TECHNICIAN Brandie bates MD PhD [facility] CPT-43355 Level 3 Est. Patient 16:31:47 SOFTWARE SUPPORT TECHNICIAN Shola Wright [facility] CPT-44726 Level 3 Est. Patient 17:51:10 SOFTWARE SUPPORT TECHNICIAN Abhinav Galvan MD [facility] CPT-95550 Level 4 Est. Patient 12:54:56 SOFTWARE SUPPORT TECHNICIAN Kalpesh goins MD [facility]-44514 Level 4 Est. Patient 12:53:56 SOFTWARE SUPPORT TECHNICIAN Kalpesh goins MD [facility]-49369 Level 3 Est. Patient 17:56:58 CDT Shola Wright [facility] CPT-64273 Level 3 Est. Patient 14:26:20 CDT Janak butcher [facility] CPT-49865 Level 3 Est. Patient 09:38:41 CDT Shola Wright [facility] CPT-14537 Level 3 Est. Patient 14:45:26 CDT Edilberto tiwari [facility] CPT-73141 Level 3 Est. Patient 10:51:33 CDT Hira muniz [facility][note 2] CPT-88438 Level 3 Est. Patient 11:57:55 SOFTWARE SUPPORT TECHNICIAN Shola Wright [facility] CPT-54393 Level 3 Est. Patient 09:53:33 SOFTWARE SUPPORT TECHNICIAN Edilberto tiwari [facility]-50917 Level 3 Est. Patient 14:42:54 SOFTWARE SUPPORT TECHNICIAN Abhinav Galvan MD [facility]-66883 Level 3 Est. Patient 15:10:02 CDT [facility]99 Level 3 Est. Patient 15:20:20 CDT Theo dennis MD [facility] CPT-73712 Level 2 Est. Patient 14:08:57 CDT Kalpesh goins MD [facility] CPT-98674 Level 3 Est. Patient 13:56:19 CDT Abdirahman Rios MD [facility] CPT-61400 Level 3 Est. Patient 13:59:37 CDT Abdirahman Rios MD [facility] CPT-86752 Level 2 Est. Patient 14:44:59 CDT Kalpesh goins MD [facility] CPT-20117 Level 3 Est. Patient 06:06:23 CDT Edilberto tiwari DO [facility] CPT-19336 Level 3 Est. Patient 15:23:54 CDT Abdirahman Rios MD [facility] CPT-56314 Level 3 Est. Patient 15:43:49 CDT Abdirahman Rios MD [facility] CPT-58514 Level 3 Est. Patient 12:46:47 SOFTWARE SUPPORT TECHNICIAN Abdirahman Rios MD [facility] CPT-98150 Level 3 Est. Patient 08:13:35 SOFTWARE SUPPORT TECHNICIAN Abdirahman Rios MD [facility] CPT-46461 Level 2 Est. Patient 09:36:42 SOFTWARE SUPPORT TECHNICIAN Abdirahman Rios MD [facility] CPT-42047 Level 3 Est. Patient 10:56:43 CDT Abdirahman Rios MD [facility] CPT-64057 Level 3 Est. Patient 18:24:52 CDT Abdirahman Rios MD [facility] CPT-52749 Level 3 Est. Patient 13:27:22 CDT Abdirahman Rios MD [facility] Procedures Code Procedure Name Date Entry Date Standard Desc ription CPT-60907 Postop F/U Visit 11:29:00 SOFTWARE SUPPORT TECHNICIAN CPT-J0696 Rocephin 1000 mg (Ceftriaxone) 17:22:33 SOFTWARE SUPPORT TECHNICIAN CPT-21959 Postop F/U Visit 18:41:07 SOFTWARE SUPPORT TECHNICIAN CPT-22830 Postop F/U Visit 08:19:08 SOFTWARE SUPPORT TECHNICIAN CPT-60470 Immunization Single Admin 16:41:53 CDT 2013 CPT-67600 Fluzone Quadrivalent Intramuscular Suspe nsion 0.5 ML 16:41:53 CDT CPT-OV Office Visit 16:39:18 CDT CPT-OV Office Visit 16:16:36 CDT CPT-OV Office Visit 15:34:48 CDT CPT-52319 Postop F/U Visit 14:50:12 CDT CPT-96656 Postop F/U Visit 14:41:10 CDT CPT-73472 Venipuncture Draw Fee 11:38:04 SOFTWARE SUPPORT TECHNICIAN CPT-61531 Postop F/U Visit 19:02:59 SOFTWARE SUPPORT TECHNICIAN CPT-07080 Postop F/U Visit 12:04:54 SOFTWARE SUPPORT TECHNICIAN CPT-83147 Administration single or combination vac cine inc oral 15:56:43 CDT CPT-75101 Influenza split virus > age 3 15:56:43 CDT CPT-87027 Hand comp min 3V 14:25:19 CDT CPT-07955 Postop F/U Visit 21:40:51 CDT CPT-97007 Postop F/U Visit 10:58:43 CDT CPT-54830 Administration single or combination vac cine inc oral 12:33:54 SOFTWARE SUPPORT TECHNICIAN CPT-54726 Influenza Preservative Free split virus >age 3 12:33:54 SOFTWARE SUPPORT TECHNICIAN CPT-37887 Administration single or combination vac cine inc oral 09:30:51 CDT CPT-04551 Influenza split virus > age 3 09:30:51 CDT CPT-79731 Postop F/U Visit 15:14:53 CDT CPT-11938 Postop F/U Visit 13:50:14 CDT CPT-80756 Postop F/U Visit 13:34:52 CDT CPT-OV Office Visit 16:55:03 CDT CPT-53830 [place] of cervix w bx ECC 13:32:50 CDT 10/19 CPT-J1885 Toradol 60 mg (Ketorolac) 15:31:59 CDT 2011 CPT-J1885 Toradol 60 mg (Ketorolac) 15:23:54 CDT 2011 CPT-66972 Visit 11:34:37 SOFTWARE SUPPORT TECHNICIAN CPT-87845 Visit 10:52:39 SOFTWARE SUPPORT TECHNICIAN CPT-24551 Visit 10:12:02 SOFTWARE SUPPORT TECHNICIAN CPT-21004 Visit 11:22:43 SOFTWARE SUPPORT TECHNICIAN CPT-08806 Visit 11:24:12 SOFTWARE SUPPORT TECHNICIAN CPT-30469 Visit 10:47:05 SOFTWARE SUPPORT TECHNICIAN CPT-OV Office Visit 10:26:16 SOFTWARE SUPPORT TECHNICIAN CPT-OV Office Visit 15:34:31 SOFTWARE SUPPORT TECHNICIAN CPT-93354 Visit 10:42:08 SOFTWARE SUPPORT TECHNICIAN CPT-88984 Visit 10:52:45 SOFTWARE SUPPORT TECHNICIAN CPT-000 Give Appropriate Flu Vaccine 16:56:41 CDT 2 CPT-83069 Administration single or combination vac cine inc oral 10:33:21 CDT CPT-65887 Influenza split virus > age 3 10:33:21 CDT CPT-74108 Visit 13:23:09 CDT CPT-59867 Visit 18:24:52 CDT CPT-82269 Sono OB comp > 14 weeks 12:07:49 CDT 04/07
--- OUTSIDE RECORDS SUMMARY | 2020-01-18 16:58 | XMS REPORT | Clinical Summary ---
Author Author Admin, Jeri Rashid Organization [facility] Address Unknown Phone Unavailable Allergies, [...] 1 every 4 hours as needed OXYCODONE-ACETAMINOPHEN 29784408385 Active Kalpesh Dong MD Active PROAIR HFA 108 (90 BASE) MCG/ACT AERS 2 puff q 4-6 hrs PRN 01/24 ALBUTEROL SULFATE 43053308405 No Longer Active Kalpesh Dong MD Active ALPRAZOLAM 0.5 MG TABS 1 po BID PRN Anxiety ALPRA ZOLAM 63184523759 Active Abdirahman Rios MD Active EMLA 2.5-2.5 % EXT CREA apply to skin lesion q 6 hours, prn LIDOCAINE-PRILOCAINE 49753185371 Active Hira Moser APRN Active CYCLOBENZAPRINE HCL 10 MG TABS 1 tablet by mouth three times daily as needed for muscle spasm/pain CYCLOBENZAPRINE HCL 58750269575 Active Abdirahman Rios MD Active PREDNISONE 20 MG TAB 2 tabs daily for 3 days, 1 t ab daily for 3 days, 1/2 tab daily for 2 days PREDNISONE 73579709181 No Longer Active Abdirahman Rios MD Active KEFLEX 500 MG CAP 1 po qid CEPHALEXIN 699630895 20 No Longer Active Kalpesh Dong MD Active PERCOCET 5-325 MG TAB 1 every 6 hours as needed OXYCODONE-ACETAMINOPHEN 49128582551 No Longer Active Shola MCGILL Active LC-5 LIDOCAINE 5 % CREA apply 1 time daily to affected area 2013 LIDOCAINE (ANORECTAL) 56561194825 No Longer Active Hira muniz APRN Active HYDROCODONE-ACETAMINOPHEN 5-325 MG TABS 2 tablets by m outh every 8 hours as needed for pain HYDROCODONE-ACETAMINOPHEN 18023165564 Acti ve Abdirahman Rios MD Active HYDROCODONE-ACETAMINOPHEN 10-325 MG TABS 1 by mouth ev chaka 8 hours as needed for pain HYDROCODONE-ACETAMINOPHEN 80814075602 No Longer Active Hira Moser APRN Active LORATADINE 10 MG TABS 1 tablet by mouth daily L ORATADINE 99893278819 No Longer Active Hira Moser APRN Active DIFLUCAN 150 MG TAB 1 qODay x 2 doses FLUCONAZO LE 88311202039 No Longer Active Jillina Joyzell [employer]LOCKING IN[employer]ER Active CYCLOBENZAPRINE HCL 10 MG TABS 1/2 - 1 tab PO tid PRN back p ain, muscle spasm CYCLOBENZAPRINE HCL 12586585855 No Longer Active Karen herson Frazell INTERLOCKING INSTALLER Active AUGMENTIN 875-125 MG TAB 1 tab by mouth twice daily with food 20 22/05/07 AMOXICILLIN-POT CLAVULANATE 00812242387 No Longer Active Loida Rios MD Active MOBIC 15 MG TABS 1 tab daily MELOXICAM 632533752 14 No Longer Active Abdirahman Rios MD Active PERCOCET 7.5-325 MG TABS 1 PO tid PRN pain OXYCODONE-ACETAMINOPHEN 87733317081 No Longer Active Abdirahman Rios MD Active LIDODERM 5 % PTCH One patch to painful area IA N. On for 12 hrs, off for 12 hrs. LIDOCAINE 56859276915 No Longer Active Abdirahman Rios MD Active PERCOCET 7.5-325 MG TABS 1 PO q 8 hrs PRN pain OXYCODONE-ACETAMINOPHEN 46132012692 No Longer Active Shola MCGILL Active HYDROCODONE-ACETAMINOPHEN 7.5-325 MG TABS 1 by mouth e very 6 hours as needed for pain HYDROCODONE-ACETAMINOPHEN 58779397130 No Longer Active Good Julian MD Active CLINDAMYCIN HCL 300 MG CAPS 1 po QID x 7 days CLINDAMYCIN HCL 48206902870 No Longer Active Abdirahman Rios MD Activ e BACTRIM DS 800-160 MG TABS 1 po BID x 7 days 5 SULFAMETHOXAZOLE-TRIMETHOPRIM 97963543809 No Longer Active Abdirahman Rios MD Active ENDOCET 10-325 MG TABS 1 q 6 hr prn OXYCODONE-ACETAMINOPHEN 25720613865 No Longer Active Abdirahman Rios MD Active IBUPROFEN 800 MG TABS 1 tid prn IBUPROFEN 893985 42447 No Longer Active Abdirahman Rios MD Active BACTRIM DS 800-160 MG TABS by mouth twice a day 11/05 SULFAMETHOXAZOLE-TRIMETHOPRIM 09538410297 No Longer Active Good Julian MD Active HYDROCODONE-ACETAMINOPHEN 7.5-325 MG TABS 1 four times a day as needed for pain HYDROCODONE-ACETAMINOPHEN 81966922160 No Longer Activ e Good Julian MD Active KEFLEX 500 MG CAP 1 tab po tid CEPHALEXIN 358013 27709 No Longer Active Matthewllina Shanti RIVAS Active IBUPROFEN 800 MG TAB 1 pill three times daily as needed for pain IBUPROFEN 13414844041 No Longer Active Kalpesh Dong MD Active PROMETHAZINE-CODEINE 6.25-10 MG/5ML SYRP 1 tsp every 6 hrs prn c ough PROMETHAZINE-CODEINE 38926105394 No Longer Active Kalpesh Carr Active HYDROCODONE-ACETAMINOPHEN 5-325 MG TABS 1 tab by mouth every 6 hours as needed HYDROCODONE-ACETAMINOPHEN 61598592678 No Longer Activ e Shola MCGILL Active CEPHALEXIN 500 MG CAPS 1 PO bid x 7 days CEPHAL EXIN 58297439003 No Longer Active Shola MCGILL Active BACTRIM DS 800-160 MG TAB 1 tab by mouth twice daily 2 TRIMETHOPRIM-SULFAMETHOXAZOLE 83270601160 No Longer Active Kalpesh Dong MD Active HYDROCODONE-ACETAMINOPHEN 5-325 MG TABS 1 PO tid PRN pain 5 HYDROCODONE-ACETAMINOPHEN 66781595156 No Longer Active Abhinav Galvan MD Active IMPLANON 68 MG IMPL IMPLANTED IN LEFT ARM ETONO GESTREL 11729592903 No Longer Active Jillina Shanti ANDRADEN Active AMOXICILLIN 500 MG TABS 2 tabs PO bid x 10 d AM OXICILLIN 28131511414 No Longer Active Kalpesh Dong MD Active LEVAQUIN 500 MG TABS 1 PO q day x 7 days LEVOFL OXACIN 50843586570 No Longer Active Shola MCGILL Active FIORICET 50-325-40 MG TABS 2 PO q 8 hrs PRN FOSTER [id number] Active Abdirahman Rios MD Active AMITRIPTYLINE HCL 25 MG TAB 1 tab by mouth daily 60 minutes before bedtime AMITRIPTYLINE HCL 94747702044 No Longer Active Shola MCGILL Active LORTAB 5 5-500 MG TABS 1/2 to 1 tablet by mouth go ry 6 hours as needed for pain HYDROCODONE-ACETAMINOPHEN 36041051245 No Longer Active Shola MCGILL Active CEPHALEXIN 500 MG TABS Take one by mouth four times daily, morning, noon, early evening and bedtime. CEPHALEXIN 64262297644 No Long er Active Hira Moser APRN Active TYLENOL/CODEINE #3 300-30 MG TAB 1-2 po q6hr PRN Pain ACETAMINOPHEN-CODEINE 14000072637 No Longer Active Edilberto Marino DO Active PRISTIQ 50 MG [id number] 1 po qd DESVENLAFAXI NE SUCCINATE 35219081503 No Longer Active Edilberto Marino DO Active PENICILLIN V POTASSIUM 500 MG TAB 1 four times a day 2 PENICILLIN V POTASSIUM 89273512866 No Longer Active Edilberto Marino DO Active DOXYCYCLINE HYCLATE 100 MG CAPS Take one (1) tablet by mouth twice a day DOXYCYCLINE HYCLATE 64939490310 No Longer Active Ronnie Galvan MD Active HYDROCODONE-ACETAMINOPHEN 5-325 MG TABS 1 po q 6hr PRN Pain 2011 HYDROCODONE-ACETAMINOPHEN 05092714919 No Longer Active Patri joan Lock RN Active BACTRIM DS 800-160 MG TAB 1 tab by mouth twice daily 2 TRIMETHOPRIM-SULFAMETHOXAZOLE 78005331290 No Longer Active Kalpesh Dong MD Active LORTAB 5 5-500 MG TABS 1/2 to 1 tablet by mouth go ry 4 hours as needed for pain HYDROCODONE-ACETAMINOPHEN 50761622824 No Longer Active Kalpesh Dong MD Active GENERESS FE 0.8-25 MG-MCG CHEW Take one by mouth daily NORETHIN-ETH ESTRADIOL-FE 83125675664 No Longer Active Kalpesh Dong MD Active HYDROCODONE-ACETAMINOPHEN 7.5-500 MG TABS 1-2 every 4 hours as needed HYDROCODONE-ACETAMINOPHEN 59462117714 No Longer Activ e Kalpesh Dong MD Active FERROUS SULFATE 325 (65 FE) MG TABS 1 tablet by mouth twice yung y FERROUS SULFATE 94196420741 No Longer Active Kalpesh Dong MD Active IBUPROFEN 600 MG TAB 1 po q6-8hr PRN IBUPROFEN 22825719726 No Longer Active Kalpesh Dong MD Active SPIRONOLACTONE 25 MG TAB 1 tablet by mouth daily 01/22 SPIRONOLACTONE 30831910445 No Longer Active Kalpesh Dong MD Acti ve HYDROCODONE-ACETAMINOPHEN 7.5-325 MG TABS 1 po QID PRN Pain 2011 HYDROCODONE-ACETAMINOPHEN 04990791777 No Longer Active Kalpesh Dong MD Active CLINDAMYCIN HCL 300 MG CAPS 1 po q6hr x 7 days CLINDAMYCIN HCL 63975336339 No Longer Active Edilberto Marino DO Active PREDNISONE 20 MG TAB 2 tabs daily for 4 days, 1 t ab daily for 4 days, 1/2 tab daily for 4 days PREDNISONE 84023760851 No Longer Active Edilberto Marino DO Active PERCOCET 5-325 MG TABS 1 tablet by mouth every 6 hours as ne eded for pain OXYCODONE-ACETAMINOPHEN 85985658654 No Longer Active Abdirahman Rios MD Active VITAMINS TABS Take one by mouth daily MV & MIN W/FE-FA TABS 77677995260 No Longer Active Abdirahman Rios MD Active LUIS 3-0.02 MG TABS 1 tablet by mouth daily as directed DROSPIRENONE-ETHINYL ESTRADIOL 67607017125 No Longer Active Abdirahman Rios MD Active LORATADINE 10 MG TABS 1 tablet by mouth daily L ORATADINE 23058019942 No Longer Active Kalpesh Dong MD Active HYDROCODONE-ACETAMINOPHEN 5-325 MG TABS 1 po q 6hr PRN Pain 2010 HYDROCODONE-ACETAMINOPHEN 95063121103 No Longer Active Edilberto Marino DO Active BACTRIM DS 800-160 MG TAB 1 tab by mouth twice daily 2 TRIMETHOPRIM-SULFAMETHOXAZOLE 58427451127 No Longer Active Abdirahman Rios MD Active 28-0.8 MG TABS Take one by mouth daily 09/20 VIT-FE FUMARATE-FA 35049673151 No Longer Active Abdirahman Rios MD Active CIPRO 500 MG TAB 1 tablet by mouth twice daily CIPROFLOXACIN HCL 89845889666 No Longer Active Abdirahman Rios MD Active BENADRYL 25 MG CAP 1 po q8hr PRN Congestion DIPHENHYDRAMINE HCL 66710883510 No Longer Active Abdirahman Rios MD Active ZOLOFT 50 MG TAB 1 po qd SERTRALINE HCL 655734 59002 No Longer Active Abdirahman Rios MD Active AMOXICILLIN 875 MG TABS 1 tab by mouth twice daily 201 08/09/13 AMOXICILLIN 90279554929 No Longer Active Abdirahman Rios MD Activ e AMOXICILLIN 875 MG TABS 1 tab by mouth twice daily 201 07/19/27 AMOXICILLIN 72551642288 No Longer Active Abdirahman Rios MD Activ e BACTRIM DS 800-160 MG TAB 2 tab by mouth twice daily 2 TRIMETHOPRIM-SULFAMETHOXAZOLE 09194355334 No Longer Active Abdirahman Rios MD Active KEFLEX 500 MG CAP 1 po tid x 10 days CEPHALEXIN 64803003328 No Longer Active Abdirahman Rios MD Active AMOXICILLIN 875 MG TABS 1 tab by mouth twice daily 201 07/18/07 AMOXICILLIN 66345039205 No Longer Active Abdirahman Rios MD Activ e BACTRIM DS 800-160 MG TAB 2 tab by mouth twice daily 2 BACTRIM DS 800-160 MG TAB TRIMETHOPRIM-SULFAMETHOXAZOLE Inactive ZOLOFT 50 MG TAB 1 po qd ZOLOFT 50 MG TAB 3129 41 SERTRALINE HCL Inactive BENADRYL 25 MG CAP 1 po q8hr PRN Congestion BENADRYL 25 MG CAP 3830292 DIPHENHYDRAMINE HCL Inactive 28-0.8 MG TABS Take one by mouth daily 09/20 28-0.8 MG TABS VIT-FE FUMARATE-FA Inactive HYDROCODONE-ACETAMINOPHEN 5-325 MG TABS 1 po q 6hr PRN Pain 2010 HYDROCODONE-ACETAMINOPHEN 5-325 MG TABS 098939 HYDROCODONE-ACETAMINOPHEN Inactive LORATADINE 10 MG TABS 1 tablet by mouth daily LORATADINE 10 MG TABS 018493 LORATADINE Inactive LUIS 3-0.02 MG TABS 1 tablet by mouth daily as directed LUIS 3-0.02 MG TABS DROSPIRENONE-ETHINYL ESTRADIOL Inactive VITAMINS TABS Take one by mouth daily VITAMINS TABS MV & MIN W/FE-FA TABS Inactive PERCOCET 5-325 MG TABS 1 tablet by mouth every 6 hours as ne eded for pain PERCOCET 5-325 MG TABS 0345676 OXYCODONE-ACETAMIN OPHEN Inactive PREDNISONE 20 MG TAB 2 tabs daily for 4 days, 1 t ab daily for 4 days, 1/2 tab daily for 4 days PREDNISONE 20 MG TAB 532384 PREDNISON E Inactive CLINDAMYCIN HCL 300 MG CAPS 1 po q6hr x 7 days CLINDAMYCIN HCL 300 MG CAPS 043933 CLINDAMYCIN HCL Inactive HYDROCODONE-ACETAMINOPHEN 7.5-325 MG TABS 1 po QID PRN Pain 2011 HYDROCODONE-ACETAMINOPHEN 7.5-325 MG TABS 795060 HYDROCODONE-ACETAMINOPHEN Inactive SPIRONOLACTONE 25 MG TAB 1 tablet by mouth daily 01/22 SPIRONOLACTONE 25 MG TAB 116562 SPIRONOLACTONE Inactive IBUPROFEN 600 MG TAB 1 po q6-8hr PRN IBUPROFEN 600 MG TAB 528639 IBUPROFEN Inactive FERROUS SULFATE 325 (65 FE) MG TABS 1 tablet by mouth twice yung y FERROUS SULFATE 325 (65 FE) MG TABS 278305 FERROUS SULF ATE Inactive HYDROCODONE-ACETAMINOPHEN 7.5-500 MG [...] PRN Pain 2011 HYDROCODONE-ACETAMINOPHEN 5-325 MG TABS 730813 HYDROCODONE-ACETAMINOPHEN Inactive DOXYCYCLINE HYCLATE 100 MG CAPS Take one (1) tablet by mouth twice a day DOXYCYCLINE HYCLATE 100 MG CAPS 920029 DOXYCYCLINE HYCLATE Inactive PENICILLIN V POTASSIUM 500 MG TAB 1 four times a day 2 PENICILLIN V POTASSIUM 500 MG TAB 700379 PENICILLIN V POTASSIUM Welling ctive PRISTIQ 50 MG [id number] 1 po qd PRISTIQ 50 MG [id number] DESVENLAFAXINE SUCCINATE Inactive TYLENOL/CODEINE #3 300-30 MG TAB 1-2 po q6hr PRN Pain TYLENOL/CODEINE #3 300-30 MG TAB 210382 ACETAMINOPHEN-CODEINE Inact krishna CEPHALEXIN 500 MG TABS Take one by mouth four times daily, morning, noon, early evening and bedtime. CEPHALEXIN 500 MG TABS 033075 CEPHALEXIN Inactive LORTAB 5 5-500 MG TABS 1/2 to 1 tablet by mouth go ry 6 hours as needed for pain LORTAB 5 5-500 MG TABS HYDROCODONE-A CETAMINOPHEN Inactive AMITRIPTYLINE HCL 25 MG TAB 1 tab by mouth daily 60 minutes before bedtime AMITRIPTYLINE HCL 25 MG TAB 005291 AMITRIPTYLINE HCL Inactive AMOXICILLIN 500 MG TABS 2 tabs PO bid x 10 d 7 AMOXICILLIN 500 MG TABS 701323 AMOXICILLIN Inactive IMPLANON 68 MG IMPL IMPLANTED IN LEFT ARM IMPLANON 68 MG IMPL ETONOGESTREL Inactive HYDROCODONE-ACETAMINOPHEN 5-325 MG TABS 1 PO tid PRN pain 5 HYDROCODONE-ACETAMINOPHEN 5-325 MG TABS 011119 HYDROCODONE-ACETAMIN OPHEN Inactive BACTRIM DS 800-160 MG TAB 1 tab by mouth twice daily 2 BACTRIM DS 800-160 MG TAB TRIMETHOPRIM-SULFAMETHOXAZOLE Inac tive CEPHALEXIN 500 MG CAPS 1 PO bid x 7 days CEPHALEXIN 500 MG CAPS 086563 CEPHALEXIN Inactive HYDROCODONE-ACETAMINOPHEN 5-325 MG TABS 1 tab by mouth every 6 hours as needed HYDROCODONE-ACETAMINOPHEN 5-325 MG TABS 481882 HYDROCODONE-ACETAMINOPHEN Inactive PROMETHAZINE-CODEINE 6.25-10 MG/5ML SYRP 1 tsp every 6 hrs prn c ough PROMETHAZINE-CODEINE 6.25-10 MG/5ML SYRP 076346 PROMETH AZINE-CODEINE Inactive IBUPROFEN 800 MG TAB 1 pill three times daily as needed for pain IBUPROFEN 800 MG TAB 759985 IBUPROFEN Inactive KEFLEX 500 MG CAP 1 tab po tid KEFLEX 500 MG CAP 902031 CEPHALEXIN Inactive HYDROCODONE-ACETAMINOPHEN 7.5-325 MG TABS 1 four times a day as needed for pain HYDROCODONE-ACETAMINOPHEN 7.5-325 MG TABS 167593 HYDROCODONE-ACETAMINOPHEN Inactive BACTRIM DS 800-160 MG TABS by mouth twice a day 11/05 BACTRIM DS 800-160 MG TABS SULFAMETHOXAZOLE-TRIMETHOPRIM Inactive IBUPROFEN 800 MG TABS 1 tid prn IBUPROFEN 800 MG TABS 297779 IBUPROFEN Inactive ENDOCET 10-325 MG TABS 1 q 6 hr prn ENDOC ET 10-325 MG TABS 5974189 OXYCODONE-ACETAMINOPHEN Inactive HYDROCODONE-ACETAMINOPHEN 7.5-325 MG TABS 1 by mouth e very 6 hours as needed for pain HYDROCODONE-ACETAMINOPHEN 7.5-325 MG TABS 681862 HYDROCODONE-ACETAMINOPHEN Inactive PERCOCET 7.5-325 MG TABS 1 PO q 8 hrs PRN pain PERCOCET 7.5-325 MG TABS 6522208 OXYCODONE-ACETAMINOPHEN Inactive LIDODERM 5 % PTCH One patch to painful area IA N. On for 12 hrs, off for 12 hrs. LIDODERM 5 % PTCH 8489069 LIDOCAINE Inactiv e PERCOCET 7.5-325 MG TABS 1 PO tid PRN pain PERCOCET 7.5- 325 MG TABS 3668852 OXYCODONE-ACETAMINOPHEN Inactive MOBIC 15 MG TABS 1 tab daily MOBIC 15 MG TABS 15 2695 MELOXICAM Inactive CYCLOBENZAPRINE HCL 10 MG TABS 1/2 - 1 tab PO tid PRN back p ain, muscle spasm CYCLOBENZAPRINE HCL 10 MG TABS 478963 CYCLOBENZA JOSEPH HCL Inactive LORATADINE 10 MG TABS 1 tablet by mouth daily LORATADINE 10 MG TABS 189950 LORATADINE Inactive HYDROCODONE-ACETAMINOPHEN 10-325 MG TABS 1 by mouth ev chaka 8 hours as needed for pain HYDROCODONE-ACETAMINOPHEN 10-325 MG TABS 015745 HYDROCODONE-ACETAMINOPHEN Inactive LC-5 LIDOCAINE 5 % CREA apply 1 time daily to affected area 2013 LC-5 LIDOCAINE 5 % CREA LIDOCAINE (ANORECTAL) In active PERCOCET 5-325 MG TAB 1 every 6 hours as needed PERCOCET 5-325 MG TAB 2257938 OXYCODONE-ACETAMINOPHEN Inactive KEFLEX 500 MG CAP 1 po qid KEFLEX 500 MG CAP 30 9114 CEPHALEXIN Inactive PROAIR HFA 108 (90 BASE) MCG/ACT AERS 2 puff q 4-6 hrs PRN 01/24 PROAIR HFA 108 (90 BASE) MCG/ACT AERS ALBUTEROL SULFATE Inactive AMOXICILLIN 875 MG TABS 1 tab by mouth twice daily 201 07/18/07 AMOXICILLIN 875 MG TABS 589829 AMOXICILLIN Inactive KEFLEX 500 MG CAP 1 po tid x 10 days KEFLEX 500 MG CAP 920463 CEPHALEXIN Inactive AMOXICILLIN 875 MG TABS 1 tab by mouth twice daily 201 07/19/27 AMOXICILLIN 875 MG TABS 493995 AMOXICILLIN Inactive AMOXICILLIN 875 MG TABS 1 tab by mouth twice daily 201 08/09/13 AMOXICILLIN 875 MG TABS 519110 AMOXICILLIN Inactive CIPRO 500 MG TAB 1 tablet by mouth twice daily CIPRO 500 MG TAB 143984 CIPROFLOXACIN HCL Inactive BACTRIM DS 800-160 MG TAB 1 tab by mouth twice daily 2 BACTRIM DS 800-160 MG TAB TRIMETHOPRIM-SULFAMETHOXAZOLE Inac tive LEVAQUIN 500 MG TABS 1 PO q day x 7 days LEVAQUIN 500 MG TABS 720013 LEVOFLOXACIN Inactive CLINDAMYCIN HCL 300 MG CAPS 1 po QID x 7 days CLINDAMYCIN HCL 300 MG CAPS 977908 CLINDAMYCIN HCL Inactive AUGMENTIN 875-125 MG TAB 1 tab by mouth twice daily with food 22/05/07 AUGMENTIN 875-125 MG TAB 384482 AMOXICILLIN-POT [place] Inactive DIFLUCAN 150 MG TAB 1 qODay x 2 doses DIFLUCAN 150 MG TAB 417185 FLUCONAZOLE Inactive PREDNISONE 20 MG TAB 2 tabs daily for 3 days, 1 t ab daily for 3 days, 1/2 tab daily for 2 days PREDNISONE 20 MG TAB 539249 PREDNISON E Inactive Advance Directives Directive Description Start Date PERMISSION TO SHARE Immunizations Vaccine Administration Date Value Standard Alf cription Seasonal influenza vaccine, injectable, containing preservative, for > 3 years old (Afluria, FluLaval, Fluzone, Fluvirin, Fluarix, Agriflu(>= 18 yo)) Fluzone (>3 yrs.) [[id number]] Influenza, seasonal, inject able Seasonal influenza vaccine, injectable, preservative free, for > 3 years old (Afluria, FluLaval, Fluzone, Fluvirin, Fluarix, Agriflu(>= 18 yo)) Fluzone preservative free (>3 yrs.) [[id number]] Influenza, seasonal, injectable, preservative free Seasonal influenza vaccine, injectable, containing preservative, for > 3 years old (Afluria, FluLaval, Fluzone, Fluvirin, Fluarix, Agriflu(>= 18 yo)) Fluzone (>3 yrs.) [[id number]] Influenza, seasonal, inject able Seasonal influenza vaccine, injectable, containing preservative, for > 3 years old (Afluria, FluLaval, Fluzone, Fluvirin, Fluarix, Agriflu(>= 18 yo)) Fluzone (>3 yrs.) [SED539] Influenza, seasonal, inject able dT (Diphtheria and [...] negative Encounters Code Encounter Date Provider Facility CPT-18542 Level 2 Est. Patient 07:49:32 CDT Kalpesh goins MD [facility] CPT-90494 Level 3 New Patient 15:47:11 CHIEF MATE Bj huber MD [facility] CPT-76012 Level 4 Est. Patient 14:37:38 CHIEF MATE Abdirahman Rios MD [facility] CPT-80871 Level 2 Est. Patient 13:32:17 CHIEF MATE Kalpesh goins MD [facility] CPT-59233 Level 3 Est. Patient 17:32:57 CHIEF MATE Edilberto tiwari DO [facility] CPT-34062 Level 3 Est. Patient 17:22:33 CHIEF MATE Edilberto tiwari [facility] CPT-54256 Level 2 Est. Patient 16:57:09 CHIEF MATE Kalpesh goins MD [facility] CPT-44705 Level 3 Est. Patient 14:03:08 CHIEF MATE Abdirahman Rios MD [facility] CPT-95980 Level 3 Est. Patient 18:12:34 CDT Shola Wright [facility] CPT-86596 Level 3 Est. Patient 19:34:46 CDT Shola Wright [facility] CPT-50019 Level 3 Est. Patient 14:19:37 CDT Abdirahman Rios MD [facility] CPT-16870 Level 3 Est. Patient 14:11:58 CDT Kalpesh goins MD [facility]-61763 Level 3 Est. Patient 16:50:00 CDT Michelle MERCADO [facility] CPT-56392 Level 3 Est. Patient 17:11:32 CHIEF MATE Brandie bates MD PhD [facility] CPT-37338 Level 3 Est. Patient 16:31:47 CHIEF MATE Shola Wright [facility] CPT-07979 Level 3 Est. Patient 17:51:10 CHIEF MATE Abhinav Galvan MD [facility] CPT-30362 Level 4 Est. Patient 12:54:56 CHIEF MATE Kalpesh goins MD [facility]-04173 Level 4 Est. Patient 12:53:56 CHIEF MATE Kalpesh goins MD [facility]-12446 Level 3 Est. Patient 17:56:58 CDT Shola Wright [facility] CPT-59272 Level 3 Est. Patient 14:26:20 CDT Janak butcher [facility] CPT-80627 Level 3 Est. Patient 09:38:41 CDT Shola Thao Adriana [facility] CPT-87661 Level 3 Est. Patient 14:45:26 CDT Edilberto tiwari [facility] CPT-67680 Level 3 Est. Patient 10:51:33 [facility] Level 3 Est. Patient 11:57:55 CHIEF MATE Shola Thao Adriana [facility] CPT-90393 Level 3 Est. Patient 09:53:33 CHIEF MATE Edilberto tiwari [facility] CPT-04037 Level 3 Est. Patient 14:42:54 CHIEF MATE Abhinav Galvan MD [facility] CPT-74663 Level 3 Est. Patient 15:10:02 CDT Janak butcher [facility] CPT-27177 Level 3 Est. Patient 15:20:20 CDT Theo dennis MD [facility] CPT-45829 Level 2 Est. Patient 14:08:57 CDT Kalpesh goins MD [facility] CPT-12947 Level 3 Est. Patient 13:56:19 CDT Abdirahman Rios MD [facility] CPT-00963 Level 3 Est. Patient 13:59:37 CDT Abdirahman Rios MD [facility] CPT-35888 Level 2 Est. Patient 14:44:59 CDT Kalpesh goins MD [facility] CPT-50568 Level 3 Est. Patient 06:06:23 CDT Edilberto tiwari [facility] CPT-32089 Level 3 Est. Patient 15:23:54 CDT Abdirahman Rios MD [facility] CPT-81393 Level 3 Est. Patient 15:43:49 CDT Abdirahman Rios MD [facility] CPT-23709 Level 3 Est. Patient 12:46:47 CHIEF MATE Abdirahman Rios MD [facility] CPT-64802 Level 3 Est. Patient 08:13:35 CHIEF MATE Abdirahman Rios MD [facility] CPT-80861 Level 2 Est. Patient 09:36:42 CHIEF MATE Abdirahman Rios MD [facility] CPT-17363 Level 3 Est. Patient 10:56:43 CDT Abdirahman Rios MD [facility] CPT-13573 Level 3 Est. Patient 18:24:52 CDT Abdirahman Rios MD [facility] CPT-91545 Level 3 Est. Patient 13:27:22 CDT Abdirahman Rios MD [facility] Procedures Code Procedure Name Date Entry Date Standard Desc ription CPT-54389 Postop F/U Visit 11:29:00 CHIEF MATE CPT-J0696 Rocephin 1000 mg (Ceftriaxone) 17:22:33 CHIEF MATE CPT-19297 Postop F/U Visit 18:41:07 CHIEF MATE CPT-51940 Postop F/U Visit 08:19:08 CHIEF MATE CPT-04240 Immunization Single Admin 16:41:53 CDT 2013 CPT-57698 Fluzone Quadrivalent Intramuscular Suspe nsion 0.5 ML 16:41:53 CDT CPT-OV Office Visit 16:39:18 CDT CPT-OV Office Visit 16:16:36 CDT CPT-OV Office Visit 15:34:48 CDT CPT-66932 Postop F/U Visit 14:50:12 CDT CPT-66244 Postop F/U Visit 14:41:10 CDT CPT-59780 Venipuncture Draw Fee 11:38:04 CHIEF MATE CPT-43900 Postop F/U Visit 19:02:59 CHIEF MATE CPT-78637 Postop F/U Visit 12:04:54 CHIEF MATE CPT-65251 Administration single or combination vac cine inc oral 15:56:43 CDT CPT-27109 Influenza split virus > age 3 15:56:43 CDT CPT-63634 Hand comp min 3V 14:25:19 CDT CPT-67866 Postop F/U Visit 21:40:51 CDT CPT-70071 Postop F/U Visit 10:58:43 CDT CPT-73254 Administration single or combination vac cine inc oral 12:33:54 CHIEF MATE CPT-69472 Influenza Preservative Free split virus >age 3 12:33:54 CHIEF MATE CPT-34134 Administration single or combination vac cine inc oral 09:30:51 CDT CPT-00709 Influenza split virus > age 3 09:30:51 CDT CPT-87196 Postop F/U Visit 15:14:53 CDT CPT-84312 Postop F/U Visit 13:50:14 CDT CPT-70970 Postop F/U Visit 13:34:52 CDT CPT-OV Office Visit 16:55:03 CDT CPT-96123 [place] of cervix w bx ECC 13:32:50 CDT 10/19 CPT-J1885 Toradol 60 mg (Ketorolac) 15:31:59 CDT 2011 CPT-J1885 Toradol 60 mg (Ketorolac) 15:23:54 CDT 2011 CPT-26795 Visit 11:34:37 CHIEF MATE CPT-68161 Visit 10:52:39 CHIEF MATE CPT-18575 Visit 10:12:02 CHIEF MATE CPT-94916 Visit 11:22:43 CHIEF MATE CPT-91657 Visit 11:24:12 CHIEF MATE CPT-37474 Visit 10:47:05 CHIEF MATE CPT-OV Office Visit 10:26:16 CHIEF MATE CPT-OV Office Visit 15:34:31 CHIEF MATE CPT-13030 Visit 10:42:08 CHIEF MATE CPT-75437 Visit 10:52:45 CHIEF MATE CPT-000 Give Appropriate Flu Vaccine 16:56:41 CDT 2 CPT-77980 Administration single or combination vac cine inc oral 10:33:21 CDT CPT-49703 Influenza split virus > age 3 10:33:21 CDT CPT-77133 Visit 13:23:09 CDT CPT-06638 Visit 18:24:52 CDT CPT-57517 Sono OB comp > 14 weeks 12:07:49 CDT 04/07
--- OUTSIDE RECORDS SUMMARY | 2020-01-18 16:59 | XMS REPORT ---
Author Author Jeri EMANUEL [facility] Address [address] [place] [address] Care Team Providers Care Technical Information Specialist Name Role Phone JALEEL EMANUEL Unavailable PROBLEMS Type Condition ICD9-CM Code [id number] Code Onset Dates Condition S tatus SNOMED Code Problem Pain at surgical incision R20.8 Acti ve 23713520 Problem Interstitial cystitis N30.10 Active 856577615 Problem Ingrown left big toenail L60.0 Activ e 497457930 Problem Other chronic pain G89.29 Active 8 3800252 Problem Encounter for immunization Z23 Act krishna 856927437 Problem Pilonidal cyst L05.91 Active 10733 008 Problem Ulcer L98.499 Active 365760586 ALLERGIES Substance Reaction Event Type Date Status Tramadol HCl rash Drug Allergy Jul, Active Ketorolac Tromethamine rash Drug Allergy Jul, Activ e Bactrim shortness of breath Drug Allergy Jul, Active Azithromycin shortness of breath Drug Allergy Jul, Active latex rash Non Drug Allergy Jul, Active SOCIAL HISTORY No smoking Hx information available PLAN OF CARE Activity Details Follow Up 1 Week Reason: VITAL SIGNS Height 63 in 2016-07-13 Weight 220.0 lbs 2016-07-13 Temperature 98.3 degrees Fahrenheit 2016-07-13 Heart Rate 90 bpm 2016-07-13 Respiratory Rate 18 2016-07-13 BMI 38.97 kg/m2 2016-07-13 Blood pressure systolic 134 mmHg 2016-07-13 Blood pressure diastolic 86 mmHg 2016-07-13 MEDICATIONS Medication Instructions Dosage Frequency Start Date End Date Duration S tatus Hydrocodone-Acetaminophen 7.5-325 MG Orally every 6 hrs 1 tablet as needed 6h Jul, Active Lisinopril 20 MG Orally Once a day 1 tablet 24h Active RESULTS Name Result Date Reference Range CT Scan : Extremity, Lower, Right w/o Contrast 2 Xray : Foot, Right 3 views (IN HOUSE) 2016-07-13 Xray : Ankle, Left, 3 views (IN HOUSE) 5 PROCEDURES Procedure Date Ordered Related Diagnosis Body Site X-RAY EXAM OF FOOT Jul 13, 2016 Office Visit, Est Pt., Level 3 Jul 13, 2016 IMMUNIZATIONS No Known Immunizations
--- OUTSIDE RECORDS SUMMARY | 2020-01-18 16:59 | XMS REPORT ---
Author Author [email or web address] Medic [facility] Staff, TOMY Rashid Organization [facility] Address [address] [place], [place] [address] Phone [phone] Care Team Providers Care Occupational Rehabilitation Aide Name Role Phone CAROLEE WHITE MD PP [phone] CAROLEE WHITE MD PP [phone] Summary purpose TRANSITION OF CARE AUTO GENERATION Chief Complaint and Reason for Visit Admit Diagnosis 1 CYSTO HYDRODIL Problem list No authorized problems tracked for [...] 10 mg-325 mg tablet 1 tablet oral [place] N Every 12 Hours Discont Patient recall Allergies, adverse reactions, alerts Allergen [...] Finding Observation Time Hearing Prob Loc none [id number]:10 Vision Problems yes 95-12-078376:27 Vision Correct Dev glasses 30-88-102461:27 Ambulation Asst Dev none 11-01-304163:10 Range of Motion full :10 Muscle Strength RUE 5 ROM full resist :10 Muscle Strength RLE 5 ROM full resist :10 Muscle Strength LUE 5 ROM full resist :10 Muscle Strength LLE 5 ROM full resist :10 Transfers assist x 1 :10 Ambulation in room :10 Balance unsteady : Bathing Assistance none :10 Eating Assistance none :10 Dressing Assistance none :10 Toileting Assistance none : Transfer Assistance none :10 Decline Slf Care/Mob no :10 Phys Cond Stable yes :10 Nutrition normal :10 Diet regular :10 Oral Cavity moist and intact : Teeth none :10 Dental Hygiene good :10 Abdomen Appearance obese :10 Abdomen soft :10 Bowel Sounds present :10 NG Tube no :10 Feeding Tube none :10 Ramírez no :10 Cont Bladder Irr no :10 Ostomy no :10 Stool normal :37 Urination other (specify) Comment: some leakage :37 Quality sym/unlabored :10 Cough absent :10 Secretions no :10 Breath Sounds RUL clear :10 Breath Sounds RML clear :10 Breath Sounds RLL clear :10 Breath Sounds SARA clear :10 Breath Sounds LLL clear :10 Airway natural :10 Chest Tube no :10 Oxygen no :00 C-PAP no :10 BI-PAP no :10 Temp >100.4 no : Temp <96.8 no : Chills with rigors no : HR > 90bpm no : Respirations > 20 no : Systolic <90 no : headache stiff neck no : Rapid Resp no :10 IV Site Location Rt hand :45 IV Type peripheral :45 IV Site Information discontinued : IV Site Start Attmpt 1 times :20 IV Site Isael 20 :45 IV Site Appearance WNL :45 IV Site Color clear : IV Site Patent yes :45 Dressing Type occlusive :45 Nursing Note pt ambulatory to private veh icle. pt in stable condition. belongings gathered and taken with. discharge paperwork in hand. no questions voiced about home instructions. friend to drive pt home. :10 Cognitive Status Finding Observation Time Learning Ability comprehends well :05 Neurological no :05 Psychological no :05 Physical no :05 Hearing no :05 Mold Mechanic Needed no : Sign Language no :05 Emotional no :05 Vision yes :05 Laguage no :05 Financial no :05 Vital signs Type Value Date Respiration Rate 18breaths per minute : Pulse 77beats per minute : Oxygen Saturation 97% : BP Systolic 137mmHg :00 BP Diastolic 84mmHg :00 Temperature 96.9F :10 Height 67inches 89-03-471470:30 Weight 230LB 47-48-947703:30 Social history Type Value Smoking Status CURRENT EVERY DAY SMOKER Treatment Plan No treatment plan text is available for this visit. Hospital discharge instructions Discharge Date/Time 09/15/14 1010 Accompanied By natalee Relationship friend Dismissal Condition good Disposition on DC home Valuables yes Valuable Type billfold/purse DC Inst/Educ Give yes Exit Care Educ Given yes Med/Side Effects Rev yes PNE Vac never Flu Vac 04/2014 Tetanus Vac 06/2013 Diet Explained yes Follow up appt appt made (specify) Follow Up Appt D/T 10/27/14 7052
--- OUTSIDE RECORDS SUMMARY | 2020-01-18 16:59 | XMS REPORT ---
Author Author [facility] Medic al Staff, TOMY Rashid Organization [facility] Address [address] [place], [place] [address] Phone [phone] Care Team Providers Care Proof Coin Collector Name Role Phone CHRISTOPHER YORK, CAROLEE PP [phone] Summary purpose TRANSITION OF CARE AUTO GENERATION [...] and/or laboratory data RESULTS Therapeutic Drug Monitoring :40:00 Result Normal Range Units Vancomycin Trough L 4.9 10-22 ug /ml 89-89-824470:56:00 Result Normal Range Units Vancomycin Trough L 4.5 10-22 ug /ml Chemistry :56:00 Result Normal Range Units BUN L 6 7-18 mg/dl Creatinine 0.67 0.6-1.0 mg/dl Estimated GFR 109 >= 60 mL/min /1.7 History of procedures No procedures recorded for this patient visit. Functional status Functional Status Finding Observation Time Hearing Prob Loc none :30 Vision Problems yes :30 Vision Correct Dev glasses :30 Ambulation Asst Dev none :30 Range of Motion full :30 Muscle Strength RUE 5 ROM full resist :30 Muscle Strength RLE 5 ROM full resist :30 Muscle Strength LUE 5 ROM full resist :30 Muscle Strength LLE 5 ROM full resist :30 Transfers independent : Ambulation up ad hernandez : Balance steady : Nutrition normal :30 Diet regular : Oral Cavity moist and intact : Teeth dentures :30 Dental Hygiene poor :30 Abdomen Appearance obese :30 Abdomen soft :30 Bowel Sounds present :30 NG Tube no :30 Feeding Tube none :30 Ramírez no :30 Cont Bladder Irr no 38-69-132276:30 Ostomy no :30 Stool normal :30 Urination normal 38-10-634358:30 Quality sym/unlabored : Cough absent : Secretions no :30 Breath Sounds RUL clear :30 Breath Sounds RML clear :30 Breath Sounds RLL clear :30 Breath Sounds SARA clear : Breath Sounds LLL clear :30 Airway natural :30 Chest Tube no :30 Oxygen no :40 C-PAP no :30 BI-PAP no : Temp >100.4 no : [...] Yes :30 Repeats a Phrase 1 Yes : Follows Verbal Direc 3 Yes :30 Follows Written Dire 1 Yes :30 Write a Sentance 1 Yes :30 Draw an Object 1 Yes :30 Mini Mental Total 25 points :30 Learning Ability comprehends well :30 Neurological no :30 Psychological no :30 Physical no :30 Hearing no :30 Head Bookkeeper Needed no : Sign Language no :30 Emotional no :30 Vision yes :30 Laguage no :30 Financial no :30 Vital signs Type Value Date Respiration Rate 18breaths per minute : 40 Pulse 82beats per minute :40 Oxygen Saturation 98% :40 BP Systolic 142mmHg :40 BP Diastolic 68mmHg :40 Temperature 98.0F :40 Height 63inches :30 Weight 224LB :30 Social history Type Value Smoking Status CURRENT EVERY DAY SMOKER Treatment Plan No treatment plan text is available for this visit. Hospital discharge instructions Valuables no
--- OUTSIDE RECORDS SUMMARY | 2020-01-18 16:59 | XMS REPORT | Clinical Summary ---
Author Author Admin, Jeri Rashid Organization [facility] Address Unknown Phone Unavailable Allergies, Adverse [...] Brigitte Ikehorn Lumbago Dysmenorrhea, severe 625.3 Resolved Kalepsh bernal MD Dysmenorrhea Abnormal vaginal bleeding 626.9 [...] as needed for muscle spasm/pain CYCLOBENZAPRINE HCL 95306531286 Active Abdirahman Rios MD Active PREDNISONE 20 MG TAB 2 tabs daily for 3 days, 1 t ab daily for 3 days, 1/2 tab daily for 2 days PREDNISONE 32123115066 No Longer Active Abdirahman Rios MD Active KEFLEX 500 MG CAP 1 po qid CEPHALEXIN 259138567 20 No Longer Active Kalpesh Dong MD Active PERCOCET 5-325 MG TAB 1 every 6 hours as needed OXYCODONE-ACETAMINOPHEN 45957992306 No Longer Active Shola MCGILL Active LC-5 LIDOCAINE 5 % CREA apply 1 time daily to affected area 2013 LIDOCAINE (ANORECTAL) 91043090505 No Longer Active Hira muniz PACKAGING TECH Active HYDROCODONE-ACETAMINOPHEN 5-325 MG TABS 2 tablets by m outh every 8 hours as needed for pain HYDROCODONE-ACETAMINOPHEN 75813790698 Acti ve Abdirahman Rios MD Active HYDROCODONE-ACETAMINOPHEN 10-325 MG TABS 1 by mouth ev chaka 8 hours as needed for pain HYDROCODONE-ACETAMINOPHEN 76169673624 No Longer Active Jillina Frazell PACKAGING TECH Active LORATADINE 10 MG TABS 1 tablet by mouth daily L ORATADINE 46582035860 No Longer Active Jillina Frazell PACKAGING TECH Active DIFLUCAN 150 MG TAB 1 qODay x 2 doses FLUCONAZO LE 71422755385 No Longer Active Jillina Frazell PACKAGING TECH Active CYCLOBENZAPRINE HCL 10 MG TABS 1/2 - 1 tab PO tid PRN back p ain, muscle spasm CYCLOBENZAPRINE HCL 42390519502 No Longer Active Karen siri Frazell PACKAGING TECH Active AUGMENTIN 875-125 MG TAB 1 tab by mouth twice daily with food 20 22/05/07 AMOXICILLIN-POT CLAVULANATE 02303618839 No Longer Active Loida Rios MD Active MOBIC 15 MG TABS 1 tab daily MELOXICAM 272761267 14 No Longer Active Abdirahman Rios MD Active PERCOCET 7.5-325 MG TABS 1 PO tid PRN pain OXYCODONE-ACETAMINOPHEN 74145934242 No Longer Active Abdirahman Rios MD Active LIDODERM 5 % PTCH One patch to painful area RI N. On for 12 hrs, off for 12 hrs. LIDOCAINE 74083021030 No Longer Active Abdirahman Rios MD Active PERCOCET 7.5-325 MG TABS 1 PO q 8 hrs PRN pain OXYCODONE-ACETAMINOPHEN 53554728311 No Longer Active Shola MCGILL Active HYDROCODONE-ACETAMINOPHEN 7.5-325 MG TABS 1 by mouth e very 6 hours as needed for pain HYDROCODONE-ACETAMINOPHEN 10711639917 No Longer Active Good Julian MD Active CLINDAMYCIN HCL 300 MG CAPS 1 po QID x 7 days CLINDAMYCIN HCL 73620569122 No Longer Active Abdirahman Rios MD Activ e BACTRIM DS 800-160 MG TABS 1 po BID x 7 days 5 SULFAMETHOXAZOLE-TRIMETHOPRIM 03228305284 No Longer Active Abdirahman Rios MD Active ENDOCET 10-325 MG TABS 1 q 6 hr prn OXYCODONE-ACETAMINOPHEN 19796660877 No Longer Active Abdirahman Rios MD Active IBUPROFEN 800 MG TABS 1 tid prn IBUPROFEN 620281 60166 No Longer Active Abdirahman Rios MD Active BACTRIM DS 800-160 MG TABS by mouth twice a day 11/05 SULFAMETHOXAZOLE-TRIMETHOPRIM 64542421825 No Longer Active Good Julian MD Active HYDROCODONE-ACETAMINOPHEN 7.5-325 MG TABS 1 four times a day as needed for pain HYDROCODONE-ACETAMINOPHEN 35316159103 No Longer Activ e Good Julian MD Active KEFLEX 500 MG CAP 1 tab po tid CEPHALEXIN 790800 04346 No Longer Active Jillina Frazelabel PACKAGING TECH Active IBUPROFEN 800 MG TAB 1 pill three times daily as needed for pain IBUPROFEN 52115345631 No Longer Active Kalpesh Dong MD Active PROMETHAZINE-CODEINE 6.25-10 MG/5ML SYRP 1 tsp every 6 hrs prn c ough PROMETHAZINE-CODEINE 20866477444 No Longer Active Kalpesh Carr Active ALPRAZOLAM 0.5 MG TABS 1 PO bid PRN ALPRAZOLAM 938143 97351 Active Brandie Cardenas MD PhD Active HYDROCODONE-ACETAMINOPHEN 5-325 MG TABS 1 tab by mouth every 6 hours as needed HYDROCODONE-ACETAMINOPHEN 62073956427 No Longer Activ e Shola MCGILL Active CEPHALEXIN 500 MG CAPS 1 PO bid x 7 days CEPHAL EXIN 50348608637 No Longer Active Shola MCGILL Active BACTRIM DS 800-160 MG TAB 1 tab by mouth twice daily 2 TRIMETHOPRIM-SULFAMETHOXAZOLE 73382968001 No Longer Active Kalpesh Dong MD Active HYDROCODONE-ACETAMINOPHEN 5-325 MG TABS 1 PO tid PRN pain 5 HYDROCODONE-ACETAMINOPHEN 12867997892 No Longer Active Abhinav Galvan MD Active IMPLANON 68 MG IMPL IMPLANTED IN LEFT ARM ETONO GESTREL 42461006998 No Longer Active Hira Moser APRN Active AMOXICILLIN 500 MG TABS 2 tabs PO bid x 10 d AM OXICILLIN 73103514087 No Longer Active Kalpesh Dong MD Active LEVAQUIN 500 MG TABS 1 PO q day x 7 days LEVOFL OXACIN 75277820190 No Longer Active Shola MCGILL Active PROAIR HFA 108 (90 BASE) MCG/ACT AERS 2 puff q 4-6 hrs PRN ALBUTEROL SULFATE 15800684921 Active Edilberto Marino DO Active FIORICET 50-325-40 MG TABS 2 PO q 8 hrs PRN FOSTER [id number] Active Shola MCGILL Active AMITRIPTYLINE HCL 25 MG TAB 1 tab by mouth daily 60 minutes before bedtime AMITRIPTYLINE HCL 82527550866 No Longer Active Shola MCGILL Active LORTAB 5 5-500 MG TABS 1/2 to 1 tablet by mouth go ry 6 hours as needed for pain HYDROCODONE-ACETAMINOPHEN 54065924625 No Longer Active Shola MCGILL Active CEPHALEXIN 500 MG TABS Take one by mouth four times daily, morning, noon, early evening and bedtime. CEPHALEXIN 08229147577 No Long er Active Hira Moser PACKAGING TECH Active TYLENOL/CODEINE #3 300-30 MG TAB 1-2 po q6hr PRN Pain ACETAMINOPHEN-CODEINE 06933508930 No Longer Active Edilberto Marino DO Active PRISTIQ 50 MG [id number] 1 po qd DESVENLAFAXI NE SUCCINATE 67055001707 No Longer Active Edilberto Marino DO Active PENICILLIN V POTASSIUM 500 MG TAB 1 four times a day 2 PENICILLIN V POTASSIUM 01673863791 No Longer Active Edilberto Marino DO Active DOXYCYCLINE HYCLATE 100 MG CAPS Take one (1) tablet by mouth twice a day DOXYCYCLINE HYCLATE 94735169126 No Longer Active Ronnie Galvan MD Active HYDROCODONE-ACETAMINOPHEN 5-325 MG TABS 1 po q 6hr PRN Pain 2011 HYDROCODONE-ACETAMINOPHEN 52874577399 No Longer Active Jerson Perez RN Active BACTRIM DS 800-160 MG TAB 1 tab by mouth twice daily 2 TRIMETHOPRIM-SULFAMETHOXAZOLE 90289794086 No Longer Active Kalpesh Dong MD Active LORTAB 5 5-500 MG TABS 1/2 to 1 tablet by mouth go ry 4 hours as needed for pain HYDROCODONE-ACETAMINOPHEN 38675028514 No Longer Active Kalpesh Dong MD Active GENERESS FE 0.8-25 MG-MCG CHEW Take one by mouth daily NORETHIN-ETH ESTRADIOL-FE 18636555353 No Longer Active Kalpesh Dong MD Active HYDROCODONE-ACETAMINOPHEN 7.5-500 MG TABS 1-2 every 4 hours as needed HYDROCODONE-ACETAMINOPHEN 60062691876 No Longer Activ e Kalpesh Dong MD Active FERROUS SULFATE 325 (65 FE) MG TABS 1 tablet by mouth twice yung y FERROUS SULFATE 27451983704 No Longer Active Kalpesh Dong MD Active IBUPROFEN 600 MG TAB 1 po q6-8hr PRN IBUPROFEN 90062375413 No Longer Active Kalpesh Dong MD Active SPIRONOLACTONE 25 MG TAB 1 tablet by mouth daily 01/22 SPIRONOLACTONE 42783400509 No Longer Active Kalpesh Dong MD Acti ve HYDROCODONE-ACETAMINOPHEN 7.5-325 MG TABS 1 po QID PRN Pain 2011 HYDROCODONE-ACETAMINOPHEN 99167260278 No Longer Active Kalpesh Dong MD Active CLINDAMYCIN HCL 300 MG CAPS 1 po q6hr x 7 days CLINDAMYCIN HCL 17204397387 No Longer Active Edilberto Marino DO Active PREDNISONE 20 MG TAB 2 tabs daily for 4 days, 1 t ab daily for 4 days, 1/2 tab daily for 4 days PREDNISONE 32016119717 No Longer Active Edilberto Marino DO Active PERCOCET 5-325 MG TABS 1 tablet by mouth every 6 hours as ne eded for pain OXYCODONE-ACETAMINOPHEN 14974802395 No Longer Active Abdirahman Rios MD Active VITAMINS TABS Take one by mouth daily MV & MIN W/FE-FA TABS 48624440551 No Longer Active Abdirahman Rios MD Active LUIS 3-0.02 MG TABS 1 tablet by mouth daily as directed DROSPIRENONE-ETHINYL ESTRADIOL 80035157547 No Longer Active Abdirahman Rios MD Active LORATADINE 10 MG TABS 1 tablet by mouth daily L ORATADINE 07634210264 No Longer Active Kalpesh Dong MD Active HYDROCODONE-ACETAMINOPHEN 5-325 MG TABS 1 po q 6hr PRN Pain 2010 HYDROCODONE-ACETAMINOPHEN 91894395506 No Longer Active Edilberto Marino DO Active BACTRIM DS 800-160 MG TAB 1 tab by mouth twice daily 2 TRIMETHOPRIM-SULFAMETHOXAZOLE 01229664960 No Longer Active Abdirahman Rios MD Active 28-0.8 MG TABS Take one by mouth daily 09/20 VIT-FE FUMARATE-FA 87969927963 No Longer Active Abdirahman Rios MD Active CIPRO 500 MG TAB 1 tablet by mouth twice daily CIPROFLOXACIN HCL 99118882459 No Longer Active Abdirahman Rios MD Active BENADRYL 25 MG CAP 1 po q8hr PRN Congestion DIPHENHYDRAMINE HCL 15980234299 No Longer Active Abdirahman Rios MD Active ZOLOFT 50 MG TAB 1 po qd SERTRALINE HCL 732442 63377 No Longer Active Abdirahman Rios MD Active AMOXICILLIN 875 MG TABS 1 tab by mouth twice daily 201 08/09/13 AMOXICILLIN 75992759152 No Longer Active Abdirahman Rios MD Activ e AMOXICILLIN 875 MG TABS 1 tab by mouth twice daily 201 07/19/27 AMOXICILLIN 25327972950 No Longer Active Abdirahman Rios MD Activ e BACTRIM DS 800-160 MG TAB 2 tab by mouth twice daily 2 TRIMETHOPRIM-SULFAMETHOXAZOLE 25343730914 No Longer Active Abidrahman Rios MD Active KEFLEX 500 MG CAP 1 po tid x 10 days CEPHALEXIN 35799682318 No Longer Active Abdirahman Rios MD Active AMOXICILLIN 875 MG TABS 1 tab by mouth twice daily 201 07/18/07 AMOXICILLIN 77071382886 No Longer Active Abdirahman W Dillow MD Activ e BACTRIM DS 800-160 MG TAB 2 tab by mouth twice daily 2 BACTRIM DS 800-160 MG TAB TRIMETHOPRIM-SULFAMETHOXAZOLE Inactive ZOLOFT 50 MG TAB 1 po qd ZOLOFT 50 MG TAB 3129 41 SERTRALINE HCL Inactive BENADRYL 25 MG CAP 1 po q8hr PRN Congestion BENADRYL 25 MG CAP 6657011 DIPHENHYDRAMINE HCL Inactive 28-0.8 MG TABS Take one by mouth daily 09/20 28-0.8 MG TABS VIT-FE FUMARATE-FA Inactive HYDROCODONE-ACETAMINOPHEN 5-325 MG TABS 1 po q 6hr PRN Pain 2010 HYDROCODONE-ACETAMINOPHEN 5-325 MG TABS 054408 HYDROCODONE-ACETAMINOPHEN Inactive LORATADINE 10 MG TABS 1 tablet by mouth daily LORATADINE 10 MG TABS 133730 LORATADINE Inactive LUIS 3-0.02 MG TABS 1 tablet by mouth daily as directed LUIS 3-0.02 MG TABS DROSPIRENONE-ETHINYL ESTRADIOL Inactive VITAMINS TABS Take one by mouth daily VITAMINS TABS MV & MIN W/FE-FA TABS Inactive PERCOCET 5-325 MG TABS 1 tablet by mouth every 6 hours as ne eded for pain PERCOCET 5-325 MG TABS 2848750 OXYCODONE-ACETAMIN OPHEN Inactive PREDNISONE 20 MG TAB 2 tabs daily for 4 days, 1 t ab daily for 4 days, 1/2 tab daily for 4 days PREDNISONE 20 MG TAB 478279 PREDNISON E Inactive CLINDAMYCIN HCL 300 MG CAPS 1 po q6hr x 7 days CLINDAMYCIN HCL 300 MG CAPS 001519 CLINDAMYCIN HCL Inactive HYDROCODONE-ACETAMINOPHEN 7.5-325 MG TABS 1 po QID PRN Pain 2011 HYDROCODONE-ACETAMINOPHEN 7.5-325 MG TABS 515156 HYDROCODONE-ACETAMINOPHEN Inactive SPIRONOLACTONE 25 MG TAB 1 tablet by mouth daily 01/22 SPIRONOLACTONE 25 MG TAB 552744 SPIRONOLACTONE Inactive IBUPROFEN 600 MG TAB 1 po q6-8hr PRN IBUPROFEN 600 MG TAB 524984 IBUPROFEN Inactive FERROUS SULFATE 325 (65 FE) MG TABS 1 tablet by mouth twice yung y FERROUS SULFATE 325 (65 FE) MG TABS 046996 FERROUS SULF ATE Inactive HYDROCODONE-ACETAMINOPHEN 7.5-500 MG [...] PRN Pain 2011 HYDROCODONE-ACETAMINOPHEN 5-325 MG TABS 800767 HYDROCODONE-ACETAMINOPHEN Inactive DOXYCYCLINE HYCLATE 100 MG CAPS Take one (1) tablet by mouth twice a day DOXYCYCLINE HYCLATE 100 MG CAPS 434752 DOXYCYCLINE HYCLATE Inactive PENICILLIN V POTASSIUM 500 MG TAB 1 four times a day 2 PENICILLIN V POTASSIUM 500 MG TAB 475128 PENICILLIN V POTASSIUM Siri ctive PRISTIQ 50 MG [id number] 1 po qd PRISTIQ 50 MG [id number] DESVENLAFAXINE SUCCINATE Inactive TYLENOL/CODEINE #3 300-30 MG TAB 1-2 po q6hr PRN Pain TYLENOL/CODEINE #3 300-30 MG TAB 028837 ACETAMINOPHEN-CODEINE Inact krishna CEPHALEXIN 500 MG TABS Take one by mouth four times daily, morning, noon, early evening and bedtime. CEPHALEXIN 500 MG TABS 407603 CEPHALEXIN Inactive LORTAB 5 5-500 MG TABS 1/2 to 1 tablet by mouth go ry 6 hours as needed for pain LORTAB 5 5-500 MG TABS HYDROCODONE-A CETAMINOPHEN Inactive AMITRIPTYLINE HCL 25 MG TAB 1 tab by mouth daily 60 minutes before bedtime AMITRIPTYLINE HCL 25 MG TAB 305899 AMITRIPTYLINE HCL Inactive AMOXICILLIN 500 MG TABS 2 tabs PO bid x 10 d 7 AMOXICILLIN 500 MG TABS 691100 AMOXICILLIN Inactive IMPLANON 68 MG IMPL IMPLANTED IN LEFT ARM IMPLANON 68 MG IMPL ETONOGESTREL Inactive HYDROCODONE-ACETAMINOPHEN 5-325 MG TABS 1 PO tid PRN pain 5 HYDROCODONE-ACETAMINOPHEN 5-325 MG TABS 025795 HYDROCODONE-ACETAMIN OPHEN Inactive BACTRIM DS 800-160 MG TAB 1 tab by mouth twice daily 2 BACTRIM DS 800-160 MG TAB TRIMETHOPRIM-SULFAMETHOXAZOLE Inac tive CEPHALEXIN 500 MG CAPS 1 PO bid x 7 days CEPHALEXIN 500 MG CAPS 246830 CEPHALEXIN Inactive HYDROCODONE-ACETAMINOPHEN 5-325 MG TABS 1 tab by mouth every 6 hours as needed HYDROCODONE-ACETAMINOPHEN 5-325 MG TABS 153450 HYDROCODONE-ACETAMINOPHEN Inactive PROMETHAZINE-CODEINE 6.25-10 MG/5ML SYRP 1 tsp every 6 hrs prn c ough PROMETHAZINE-CODEINE 6.25-10 MG/5ML SYRP 306063 PROMETH AZINE-CODEINE Inactive IBUPROFEN 800 MG TAB 1 pill three times daily as needed for pain IBUPROFEN 800 MG TAB IBUPROFEN Inactive KEFLEX 500 MG CAP 1 tab po tid KEFLEX 500 MG CAP 782237 CEPHALEXIN Inactive HYDROCODONE-ACETAMINOPHEN 7.5-325 MG TABS 1 four times a day as needed for pain HYDROCODONE-ACETAMINOPHEN 7.5-325 MG TABS 144406 HYDROCODONE-ACETAMINOPHEN Inactive BACTRIM DS 800-160 MG TABS by mouth twice a day 11/05 BACTRIM DS 800-160 MG TABS SULFAMETHOXAZOLE-TRIMETHOPRIM Inactive IBUPROFEN 800 MG TABS 1 tid prn IBUPROFEN 800 MG TABS 950567 IBUPROFEN Inactive ENDOCET 10-325 MG TABS 1 q 6 hr prn ENDOC ET 10-325 MG TABS 2444870 OXYCODONE-ACETAMINOPHEN Inactive HYDROCODONE-ACETAMINOPHEN 7.5-325 MG TABS 1 by mouth e very 6 hours as needed for pain HYDROCODONE-ACETAMINOPHEN 7.5-325 MG TABS 013194 HYDROCODONE-ACETAMINOPHEN Inactive PERCOCET 7.5-325 MG TABS 1 PO q 8 hrs PRN pain PERCOCET 7.5-325 MG TABS 8936965 OXYCODONE-ACETAMINOPHEN Inactive LIDODERM 5 % PTCH One patch to painful area RI N. On for 12 hrs, off for 12 hrs. LIDODERM 5 % PTCH 7853546 LIDOCAINE Inactiv e PERCOCET 7.5-325 MG TABS 1 PO tid PRN pain PERCOCET 7.5- 325 MG TABS 3963992 OXYCODONE-ACETAMINOPHEN Inactive MOBIC 15 MG TABS 1 tab daily MOBIC 15 MG TABS 15 2695 MELOXICAM Inactive CYCLOBENZAPRINE HCL 10 MG TABS 1/2 - 1 tab PO tid PRN back p ain, muscle spasm CYCLOBENZAPRINE HCL 10 MG TABS 792107 CYCLOBENZA JOSEPH HCL Inactive LORATADINE 10 MG TABS 1 tablet by mouth daily LORATADINE 10 MG TABS 710504 LORATADINE Inactive HYDROCODONE-ACETAMINOPHEN 10-325 MG TABS 1 by mouth ev chaka 8 hours as needed for pain HYDROCODONE-ACETAMINOPHEN 10-325 MG TABS 558387 HYDROCODONE-ACETAMINOPHEN Inactive LC-5 LIDOCAINE 5 % CREA apply 1 time daily to affected area 2013 LC-5 LIDOCAINE 5 % CREA LIDOCAINE (ANORECTAL) In active PERCOCET 5-325 MG TAB 1 every 6 hours as needed PERCOCET 5-325 MG TAB 9081749 OXYCODONE-ACETAMINOPHEN Inactive KEFLEX 500 MG CAP 1 po qid KEFLEX 500 MG CAP 30 9114 CEPHALEXIN Inactive AMOXICILLIN 875 MG TABS 1 tab by mouth twice daily 201 07/18/07 AMOXICILLIN 875 MG TABS 827305 AMOXICILLIN Inactive KEFLEX 500 MG CAP 1 po tid x 10 days KEFLEX 500 MG CAP 663576 CEPHALEXIN Inactive AMOXICILLIN 875 MG TABS 1 tab by mouth twice daily 201 07/19/27 AMOXICILLIN 875 MG TABS 468420 AMOXICILLIN Inactive AMOXICILLIN 875 MG TABS 1 tab by mouth twice daily 201 08/09/13 AMOXICILLIN 875 MG TABS 857557 AMOXICILLIN Inactive CIPRO 500 MG TAB 1 tablet by mouth twice daily CIPRO 500 MG TAB 678764 CIPROFLOXACIN HCL Inactive BACTRIM DS 800-160 MG TAB 1 tab by mouth twice daily 2 BACTRIM DS 800-160 MG TAB TRIMETHOPRIM-SULFAMETHOXAZOLE Inac tive LEVAQUIN 500 MG TABS 1 PO q day x 7 days LEVAQUIN 500 MG TABS 241523 LEVOFLOXACIN Inactive CLINDAMYCIN HCL 300 MG CAPS 1 po QID x 7 days CLINDAMYCIN HCL 300 MG CAPS 219135 CLINDAMYCIN HCL Inactive AUGMENTIN 875-125 MG TAB 1 tab by mouth twice daily with food 20 22/05/07 AUGMENTIN 875-125 MG TAB 024449 AMOXICILLIN-POT CLAVULA [place] Inactive DIFLUCAN 150 MG TAB 1 qODay x 2 doses DIFLUCAN 150 MG TAB 146020 FLUCONAZOLE Inactive PREDNISONE 20 MG TAB 2 tabs daily for 3 days, 1 t ab daily for 3 days, 1/2 tab daily for 2 days PREDNISONE 20 MG TAB 369572 PREDNISON E Inactive Advance Directives Directive Description Start Date PERMISSION TO SHARE Immunizations Vaccine Administration Date Value Standard Alf cription Seasonal influenza vaccine, injectable, containing preservative, for > 3 years old (Afluria, FluLaval, Fluzone, Fluvirin, Fluarix, Agriflu(>= 18 yo)) Fluzone (>3 yrs.) [[id number]] Influenza, seasonal, inject able Seasonal influenza vaccine, injectable, preservative free, for > 3 years old (Afluria, FluLaval, Fluzone, Fluvirin, Fluarix, Agriflu(>= 18 yo)) Fluzone preservative free (>3 yrs.) [[id number]] Influenza, seasonal, injectable, preservative free Seasonal influenza vaccine, injectable, containing preservative, for > 3 years old (Afluria, FluLaval, Fluzone, Fluvirin, Fluarix, Agriflu(>= 18 yo)) Fluzone (>3 yrs.) [[id number]] Influenza, seasonal, inject able Seasonal influenza vaccine, injectable, containing preservative, for > 3 years old (Afluria, FluLaval, Fluzone, Fluvirin, Fluarix, Agriflu(>= 18 yo)) Fluzone (>3 yrs.) [[id number]] Influenza, seasonal, inject able dT (Diphtheria and [...] mg/dL Encounters Code Encounter Date Provider Facility CPT-40675 Level 3 New Patient 15:47:11 NORMAN huber MD [facility] CPT-21988 Level 4 Est. Patient 14:37:38 GAME PRODUCER Abdirahman Rios MD [facility] CPT-50301 Level 2 Est. Patient 13:32:17 GAME PRODUCER Kalpesh goins MD [facility]-18621 Level 3 Est. Patient 17:32:57 GAME PRODUCER Edilberto tiwari [facility] CPT-40883 Level 3 Est. Patient 17:22:33 GAME PRODUCER Edilberto tiwari DO [facility] CPT-24701 Level 2 Est. Patient 16:57:09 GAME PRODUCER Kalpesh goins MD [facility]-96458 Level 3 Est. Patient 14:03:08 GAME PRODUCER Abdirahman Rios MD [facility]-40050 Level 3 Est. Patient 18:12:34 CDT Shola Wright [facility] CPT-58523 Level 3 Est. Patient 19:34:46 CDT Shola Wright [facility] CPT-20055 Level 3 Est. Patient 14:19:37 CDT Abdirahman Rios MD [facility]-68174 Level 3 Est. Patient 14:11:58 CDT Kalpesh goins MD [facility]-73475 Level 3 Est. Patient 16:50:00 CDT Michelle MERCADO [facility] CPT-60158 Level 3 Est. Patient 17:11:32 GAME PRODUCER Brandie bates MD PhD [facility] CPT-87609 Level 3 Est. Patient 16:31:47 GAME PRODUCER Shola Wright [facility]-59065 Level 3 Est. Patient 17:51:10 GAME PRODUCER Abhinav Galvan MD [facility] CPT-77831 Level 4 Est. Patient 12:54:56 GAME PRODUCER Kalpesh goins MD [facility]-92842 Level 4 Est. Patient 12:53:56 GAME PRODUCER Kalpesh goins MD [facility] CPT-78334 Level 3 Est. Patient 17:56:58 CDT Shola Wright [facility] CPT-16981 Level 3 Est. Patient 14:26:20 CDT Janak butcher [facility] CPT-92903 Level 3 Est. Patient 09:38:41 CDT Shola Wright [facility] CPT-15271 Level 3 Est. Patient 14:45:26 CDT Edilberto tiwari [facility] CPT-50551 Level 3 Est. Patient 10:51:[address] [facility] CPT-88993 Level 3 Est. Patient 11:57:55 GAME PRODUCER Sohla Thao Adriana [facility] CPT-00552 Level 3 Est. Patient 09:53:33 GAME PRODUCER Edilberto tiwari [facility] CPT-76365 Level 3 Est. Patient 14:42:54 GAME PRODUCER Abhinav Galvan MD [facility] CPT-11673 Level 3 Est. Patient 15:10:02 CDT Janak butcher [facility] CPT-97824 Level 3 Est. Patient 15:20:20 CDT Theo dennis MD [facility] CPT-49789 Level 2 Est. Patient 14:08:57 CDT Kalpesh goins MD [facility] CPT-26428 Level 3 Est. Patient 13:56:19 CDT Abdirahman Rios MD [facility] CPT-46979 Level 3 Est. Patient 13:59:37 CDT Abdirahman Rios MD [facility] CPT-80299 Level 2 Est. Patient 14:44:59 CDT Kalpesh goins MD [facility] CPT-96991 Level 3 Est. Patient 06:06:23 CDT Edilberto tiwari DO [facility] CPT-39854 Level 3 Est. Patient 15:23:54 CDT Abdirahman Rios MD [facility] CPT-15233 Level 3 Est. Patient 15:43:49 CDT Abdirahman Rios MD [facility] CPT-58466 Level 3 Est. Patient 12:46:47 GAME PRODUCER Abdirahman Rios MD [facility] CPT-16369 Level 3 Est. Patient 08:13:35 GAME PRODUCER Abdirahman Rios MD [facility] CPT-07593 Level 2 Est. Patient 09:36:42 GAME PRODUCER Abdirahman Rios MD [facility] CPT-36747 Level 3 Est. Patient 10:56:43 CDT Abdirahman Rios MD [facility] CPT-55658 Level 3 Est. Patient 18:24:52 CDT Abdirahman Rios MD [facility] CPT-48028 Level 3 Est. Patient 13:27:22 CDT Abdirahman Rios MD [facility] Procedures Code Procedure Name Date Entry Date Standard Desc ription CPT-42769 Postop F/U Visit 11:29:00 GAME PRODUCER CPT-J0696 Rocephin 1000 mg (Ceftriaxone) 17:22:33 GAME PRODUCER CPT-07954 Postop F/U Visit 18:41:07 GAME PRODUCER CPT-53939 Postop F/U Visit 08:19:08 GAME PRODUCER CPT-08907 Immunization Single Admin 16:41:53 CDT 2013 CPT-76484 Fluzone Quadrivalent Intramuscular Suspe nsion 0.5 ML 16:41:53 CDT CPT-OV Office Visit 16:39:18 CDT CPT-OV Office Visit 16:16:36 CDT CPT-OV Office Visit 15:34:48 CDT CPT-36013 Postop F/U Visit 14:50:12 CDT CPT-16043 Postop F/U Visit 14:41:10 CDT CPT-54164 Venipuncture Draw Fee 11:38:04 GAME PRODUCER CPT-66856 Postop F/U Visit 19:02:59 GAME PRODUCER CPT-28516 Postop F/U Visit 12:04:54 GAME PRODUCER CPT-00998 Administration single or combination vac cine inc oral 15:56:43 CDT CPT-16158 Influenza split virus > age 3 15:56:43 CDT CPT-74594 Hand comp min 3V 14:25:19 CDT CPT-85793 Postop F/U Visit 21:40:51 CDT CPT-46578 Postop F/U Visit 10:58:43 CDT CPT-02601 Administration single or combination vac cine inc oral 12:33:54 GAME PRODUCER CPT-52394 Influenza Preservative Free split virus >age 3 12:33:54 GAME PRODUCER CPT-66950 Administration single or combination vac cine inc oral 09:30:51 CDT CPT-48177 Influenza split virus > age 3 09:30:51 CDT CPT-93852 Postop F/U Visit 15:14:53 CDT CPT-68991 Postop F/U Visit 13:50:14 CDT CPT-12395 Postop F/U Visit 13:34:52 CDT CPT-OV Office Visit 16:55:03 CDT CPT-76636 [place] of cervix w bx ECC 13:32:50 CDT 10/19 CPT-J1885 Toradol 60 mg (Ketorolac) 15:31:59 CDT 2011 CPT-J1885 Toradol 60 mg (Ketorolac) 15:23:54 CDT 2011 CPT-95871 Visit 11:34:37 GAME PRODUCER CPT-12556 Visit 10:52:39 GAME PRODUCER CPT-28566 Visit 10:12:02 GAME PRODUCER CPT-76397 Visit 11:22:43 GAME PRODUCER CPT-75328 Visit 11:24:12 GAME PRODUCER CPT-30416 Visit 10:47:05 GAME PR[employer] CPT-OV Office Visit 10:26:16 GAME PR[employer]UCER CPT-OV Office Visit 15:34:31 GAME PRODUCER CPT-06054 Visit 10:42:08 GAME [employer]UC[employer] CPT-31714 Visit 10:52:45 GAME [employer]ER CPT-000 Give Appropriate Flu Vaccine 16:56:41 CDT 2 CPT-77949 Administration single or combination vac cine inc oral 10:33:21 CDT CPT-17408 Influenza split virus > age 3 10:33:21 CDT CPT-16958 Visit 13:23:09 CDT CPT-86622 Visit 18:24:52 CDT CPT-38750 Sono OB comp > 14 weeks 12:07:49 CDT 04/07
--- OUTSIDE RECORDS SUMMARY | 2020-01-18 16:59 | XMS REPORT ---
Author Author Jeri PRADO Organization [facility] Address [address] [place] [address] Care Team Providers Care Foreign Language Teacher Name Role Phone CADE PRADO Unavailable PROBLEMS Type Condition ICD9-CM Code ESO85-GT Code Onset Dates Condition S tatus SNOMED Code Problem Pain at surgical incision R20.8 Acti ve 97909997 Problem Interstitial cystitis N30.10 Active 084721087 Problem Ingrown left big toenail L60.0 Activ e 538520325 Problem Other chronic pain G89.29 Active 8 2755970 Problem Encounter for immunization Z23 Act krishna [id number] Problem Pilonidal cyst L05.91 Active 12048 008 Problem Ulcer L98.499 Active 455359391 ALLERGIES No Information SOCIAL HISTORY Never Assessed PLAN OF CARE VITAL SIGNS MEDICATIONS Medication Instructions Dosage Frequency Start Date End Date Duration S tatus Percocet 5-325 MG Orally every 6 hrs 1 tablet as needed 6h Aug, Active RESULTS No Results PROCEDURES No Known [...]
--- OUTSIDE RECORDS SUMMARY | 2020-01-18 17:00 | XMS REPORT | Clinical Summary ---
Author Author Admin, Jeri Rashid Organization [facility] Address Unknown Phone Unavailable Allergies, Adverse [...] care facility Pelvic Pain-Female 625.9 Active Bj clolier MD Unspecified symptom associated with female genital [...] casianojacque Mario Dysmenorrhea, severe ICD-625.3 Inactive Kalpesh Dogn MD Abnormal vaginal bleeding ICD-626.9 Inactive Kalpesh [...] 1 every 4 hours as needed OXYCODONE-ACETAMINOPHEN 11175922788 Active Kalpesh Dong MD Active PROAIR HFA 108 (90 BASE) MCG/ACT AERS 2 puff q 4-6 hrs PRN 01/24 ALBUTEROL SULFATE 53741578363 No Longer Active Kalpesh Dong MD Active ALPRAZOLAM 0.5 MG TABS 1 po BID PRN Anxiety ALPRA ZOLAM 06733462848 Active Abdirahman Rios MD Active EMLA 2.5-2.5 % EXT CREA apply to skin lesion q 6 hours, prn LIDOCAINE-PRILOCAINE 45922905255 Active Hira Moser APRN Active CYCLOBENZAPRINE HCL 10 MG TABS 1 tablet by mouth three times daily as needed for muscle spasm/pain CYCLOBENZAPRINE HCL 16579966542 Active Abdirahman Rios MD Active PREDNISONE 20 MG TAB 2 tabs daily for 3 days, 1 t ab daily for 3 days, 1/2 tab daily for 2 days PREDNISONE 66996090473 No Longer Active Abdirahman Rios MD Active KEFLEX 500 MG CAP 1 po qid CEPHALEXIN 778893392 20 No Longer Active Kalpesh Dong MD Active PERCOCET 5-325 MG TAB 1 every 6 hours as needed OXYCODONE-ACETAMINOPHEN 14825260610 No Longer Active Shola MCGILL Active LC-5 LIDOCAINE 5 % CREA apply 1 time daily to affected area 2013 LIDOCAINE (ANORECTAL) 32448802691 No Longer Active Hira muniz APRN Active HYDROCODONE-ACETAMINOPHEN 5-325 MG TABS 2 tablets by m outh every 8 hours as needed for pain HYDROCODONE-ACETAMINOPHEN 39591093879 Acti ve Abdirahman Rios MD Active HYDROCODONE-ACETAMINOPHEN 10-325 MG TABS 1 by mouth ev chaka 8 hours as needed for pain HYDROCODONE-ACETAMINOPHEN 79783988760 No Longer Active Hira Moser APRN Active LORATADINE 10 MG TABS 1 tablet by mouth daily L ORATADINE 66243016483 No Longer Active Hira Moser APRN Active DIFLUCAN 150 MG TAB 1 qODay x 2 doses FLUCONAZO LE 72785599604 No Longer Active Jillina Joyzell [employer] Active CYCLOBENZAPRINE HCL 10 MG TABS 1/2 - 1 tab PO tid PRN back p ain, muscle spasm CYCLOBENZAPRINE HCL 14925648610 No Longer Active Karen herson Frazell [employer] Active AUGMENTIN 875-125 MG TAB 1 tab by mouth twice daily with food 20 22/05/07 AMOXICILLIN-POT CLAVULANATE 06925729804 No Longer Active Loida Rios MD Active MOBIC 15 MG TABS 1 tab daily MELOXICAM 714107627 14 No Longer Active Abdirahman Rios MD Active PERCOCET 7.5-325 MG TABS 1 PO tid PRN pain OXYCODONE-ACETAMINOPHEN 31159857193 No Longer Active Abdirahman Rios MD Active LIDODERM 5 % PTCH One patch to painful area HI N. On for 12 hrs, off for 12 hrs. LIDOCAINE 98203830351 No Longer Active Abdirahman Rios MD Active PERCOCET 7.5-325 MG TABS 1 PO q 8 hrs PRN pain OXYCODONE-ACETAMINOPHEN 99006180231 No Longer Active Shola MCGILL Active HYDROCODONE-ACETAMINOPHEN 7.5-325 MG TABS 1 by mouth e very 6 hours as needed for pain HYDROCODONE-ACETAMINOPHEN 70494756375 No Longer Active Good Julian MD Active CLINDAMYCIN HCL 300 MG CAPS 1 po QID x 7 days CLINDAMYCIN HCL 84668279426 No Longer Active Abdirahman Rios MD Activ e BACTRIM DS 800-160 MG TABS 1 po BID x 7 days 5 SULFAMETHOXAZOLE-TRIMETHOPRIM 56220832042 No Longer Active Abdirahman Rios MD Active ENDOCET 10-325 MG TABS 1 q 6 hr prn OXYCODONE-ACETAMINOPHEN 77065307650 No Longer Active Abdirahman Rios MD Active IBUPROFEN 800 MG TABS 1 tid prn IBUPROFEN 187861 22147 No Longer Active Abdirahman Rios MD Active BACTRIM DS 800-160 MG TABS by mouth twice a day 11/05 SULFAMETHOXAZOLE-TRIMETHOPRIM 45685908078 No Longer Active Good Julian MD Active HYDROCODONE-ACETAMINOPHEN 7.5-325 MG TABS 1 four times a day as needed for pain HYDROCODONE-ACETAMINOPHEN 48685960748 No Longer Activ e Good Julian MD Active KEFLEX 500 MG CAP 1 tab po tid CEPHALEXIN 448086 49722 No Longer Active Matthewllina Shanti RIVAS Active IBUPROFEN 800 MG TAB 1 pill three times daily as needed for pain IBUPROFEN 99600844062 No Longer Active Kalpesh Dong MD Active PROMETHAZINE-CODEINE 6.25-10 MG/5ML SYRP 1 tsp every 6 hrs prn c ough PROMETHAZINE-CODEINE 06634898672 No Longer Active Kalpesh Carr Active HYDROCODONE-ACETAMINOPHEN 5-325 MG TABS 1 tab by mouth every 6 hours as needed HYDROCODONE-ACETAMINOPHEN 53498964186 No Longer Activ e Shola MCGILL Active CEPHALEXIN 500 MG CAPS 1 PO bid x 7 days CEPHAL EXIN 10630994009 No Longer Active Shola MCGILL Active BACTRIM DS 800-160 MG TAB 1 tab by mouth twice daily 2 TRIMETHOPRIM-SULFAMETHOXAZOLE 54817697447 No Longer Active Kalpesh Dong MD Active HYDROCODONE-ACETAMINOPHEN 5-325 MG TABS 1 PO tid PRN pain 5 HYDROCODONE-ACETAMINOPHEN 20480641165 No Longer Active Abhinav Galvan MD Active IMPLANON 68 MG IMPL IMPLANTED IN LEFT ARM ETONO GESTREL 03723965314 No Longer Active Jillina Shanti ANDRADEN Active AMOXICILLIN 500 MG TABS 2 tabs PO bid x 10 d AM OXICILLIN 49617239226 No Longer Active Kalpesh Dong MD Active LEVAQUIN 500 MG TABS 1 PO q day x 7 days LEVOFL OXACIN 65233532607 No Longer Active Shola MCGILL Active FIORICET 50-325-40 MG TABS 2 PO q 8 hrs PRN FOSTER [id number] Active Abdirahman Rios MD Active AMITRIPTYLINE HCL 25 MG TAB 1 tab by mouth daily 60 minutes before bedtime AMITRIPTYLINE HCL 77725273938 No Longer Active Shola MCGILL Active LORTAB 5 5-500 MG TABS 1/2 to 1 tablet by mouth go ry 6 hours as needed for pain HYDROCODONE-ACETAMINOPHEN 19967243936 No Longer Active Shola MCGILL Active CEPHALEXIN 500 MG TABS Take one by mouth four times daily, morning, noon, early evening and bedtime. CEPHALEXIN 69450532084 No Long er Active Hira Moser APRN Active TYLENOL/CODEINE #3 300-30 MG TAB 1-2 po q6hr PRN Pain ACETAMINOPHEN-CODEINE 59848486490 No Longer Active Edilberto Marino DO Active PRISTIQ 50 MG [id number] 1 po qd DESVENLAFAXI NE SUCCINATE 36305211523 No Longer Active Edilberto Marino DO Active PENICILLIN V POTASSIUM 500 MG TAB 1 four times a day 2 PENICILLIN V POTASSIUM 64156226699 No Longer Active Edilberto Marino DO Active DOXYCYCLINE HYCLATE 100 MG CAPS Take one (1) tablet by mouth twice a day DOXYCYCLINE HYCLATE 86694277536 No Longer Active Ronnie Galvan MD Active HYDROCODONE-ACETAMINOPHEN 5-325 MG TABS 1 po q 6hr PRN Pain 2011 HYDROCODONE-ACETAMINOPHEN 73137150313 No Longer Active Patri joan Lock RN Active BACTRIM DS 800-160 MG TAB 1 tab by mouth twice daily 2 TRIMETHOPRIM-SULFAMETHOXAZOLE 16363353132 No Longer Active Kalpesh Dong MD Active LORTAB 5 5-500 MG TABS 1/2 to 1 tablet by mouth go ry 4 hours as needed for pain HYDROCODONE-ACETAMINOPHEN 96422594413 No Longer Active Kalpesh Dong MD Active GENERESS FE 0.8-25 MG-MCG CHEW Take one by mouth daily NORETHIN-ETH ESTRADIOL-FE 12868700042 No Longer Active Kalpesh Dong MD Active HYDROCODONE-ACETAMINOPHEN 7.5-500 MG TABS 1-2 every 4 hours as needed HYDROCODONE-ACETAMINOPHEN 17381362633 No Longer Activ e Kalpesh Dong MD Active FERROUS SULFATE 325 (65 FE) MG TABS 1 tablet by mouth twice yung y FERROUS SULFATE 87861630948 No Longer Active Kalpesh Dong MD Active IBUPROFEN 600 MG TAB 1 po q6-8hr PRN IBUPROFEN 77537223273 No Longer Active Kalpesh Dong MD Active SPIRONOLACTONE 25 MG TAB 1 tablet by mouth daily 01/22 SPIRONOLACTONE 07637761643 No Longer Active Kalpesh Dong MD Acti ve HYDROCODONE-ACETAMINOPHEN 7.5-325 MG TABS 1 po QID PRN Pain 2011 HYDROCODONE-ACETAMINOPHEN 39003439981 No Longer Active Kalpesh Dong MD Active CLINDAMYCIN HCL 300 MG CAPS 1 po q6hr x 7 days CLINDAMYCIN HCL 43112363732 No Longer Active Edilberto Marino DO Active PREDNISONE 20 MG TAB 2 tabs daily for 4 days, 1 t ab daily for 4 days, 1/2 tab daily for 4 days PREDNISONE 22323140500 No Longer Active Edilberto Marino DO Active PERCOCET 5-325 MG TABS 1 tablet by mouth every 6 hours as ne eded for pain OXYCODONE-ACETAMINOPHEN 45477139586 No Longer Active Abdiramhan Rios MD Active VITAMINS TABS Take one by mouth daily MV & MIN W/FE-FA TABS 13243354623 No Longer Active Abdirahman Rios MD Active LUIS 3-0.02 MG TABS 1 tablet by mouth daily as directed DROSPIRENONE-ETHINYL ESTRADIOL 73362234476 No Longer Active Abdirahman Rios MD Active LORATADINE 10 MG TABS 1 tablet by mouth daily L ORATADINE 68132938861 No Longer Active Kalpesh Dong MD Active HYDROCODONE-ACETAMINOPHEN 5-325 MG TABS 1 po q 6hr PRN Pain 2010 HYDROCODONE-ACETAMINOPHEN 11571265185 No Longer Active Edilberto Marino DO Active BACTRIM DS 800-160 MG TAB 1 tab by mouth twice daily 2 TRIMETHOPRIM-SULFAMETHOXAZOLE 73368961132 No Longer Active Abdirahman Rios MD Active 28-0.8 MG TABS Take one by mouth daily 09/20 VIT-FE FUMARATE-FA 14131816719 No Longer Active Abdirahman Rios MD Active CIPRO 500 MG TAB 1 tablet by mouth twice daily CIPROFLOXACIN HCL 94091490143 No Longer Active Abdirahman Rios MD Active BENADRYL 25 MG CAP 1 po q8hr PRN Congestion DIPHENHYDRAMINE HCL 59458554802 No Longer Active Abdirahman Rios MD Active ZOLOFT 50 MG TAB 1 po qd SERTRALINE HCL 761044 26030 No Longer Active Abdirahman Rios MD Active AMOXICILLIN 875 MG TABS 1 tab by mouth twice daily 201 08/09/13 AMOXICILLIN 54078472434 No Longer Active Abdirahman Rios MD Activ e AMOXICILLIN 875 MG TABS 1 tab by mouth twice daily 201 07/19/27 AMOXICILLIN 27834470702 No Longer Active Abdirahman Rios MD Activ e BACTRIM DS 800-160 MG TAB 2 tab by mouth twice daily 2 TRIMETHOPRIM-SULFAMETHOXAZOLE 59319155074 No Longer Active Abdirahman Rios MD Active KEFLEX 500 MG CAP 1 po tid x 10 days CEPHALEXIN 40542590428 No Longer Active Abdirahman Rios MD Active AMOXICILLIN 875 MG TABS 1 tab by mouth twice daily 201 07/18/07 AMOXICILLIN 04924604369 No Longer Active Abdirahman Rios MD Activ e BACTRIM DS 800-160 MG TAB 2 tab by mouth twice daily 2 BACTRIM DS 800-160 MG TAB TRIMETHOPRIM-SULFAMETHOXAZOLE Inactive ZOLOFT 50 MG TAB 1 po qd ZOLOFT 50 MG TAB 3129 41 SERTRALINE HCL Inactive BENADRYL 25 MG CAP 1 po q8hr PRN Congestion BENADRYL 25 MG CAP 7697029 DIPHENHYDRAMINE HCL Inactive 28-0.8 MG TABS Take one by mouth daily 09/20 28-0.8 MG TABS VIT-FE FUMARATE-FA Inactive HYDROCODONE-ACETAMINOPHEN 5-325 MG TABS 1 po q 6hr PRN Pain 2010 HYDROCODONE-ACETAMINOPHEN 5-325 MG TABS 756445 HYDROCODONE-ACETAMINOPHEN Inactive LORATADINE 10 MG TABS 1 tablet by mouth daily LORATADINE 10 MG TABS 951327 LORATADINE Inactive LUIS 3-0.02 MG TABS 1 tablet by mouth daily as directed LUIS 3-0.02 MG TABS DROSPIRENONE-ETHINYL ESTRADIOL Inactive VITAMINS TABS Take one by mouth daily VITAMINS TABS MV & MIN W/FE-FA TABS Inactive PERCOCET 5-325 MG TABS 1 tablet by mouth every 6 hours as ne eded for pain PERCOCET 5-325 MG TABS 1714124 OXYCODONE-ACETAMIN OPHEN Inactive PREDNISONE 20 MG TAB 2 tabs daily for 4 days, 1 t ab daily for 4 days, 1/2 tab daily for 4 days PREDNISONE 20 MG TAB 446534 PREDNISON E Inactive CLINDAMYCIN HCL 300 MG CAPS 1 po q6hr x 7 days CLINDAMYCIN HCL 300 MG CAPS 298761 CLINDAMYCIN HCL Inactive HYDROCODONE-ACETAMINOPHEN 7.5-325 MG TABS 1 po QID PRN Pain 2011 HYDROCODONE-ACETAMINOPHEN 7.5-325 MG TABS 863031 HYDROCODONE-ACETAMINOPHEN Inactive SPIRONOLACTONE 25 MG TAB 1 tablet by mouth daily 01/22 SPIRONOLACTONE 25 MG TAB 800778 SPIRONOLACTONE Inactive IBUPROFEN 600 MG TAB 1 po q6-8hr PRN IBUPROFEN 600 MG TAB 949518 IBUPROFEN Inactive FERROUS SULFATE 325 (65 FE) MG TABS 1 tablet by mouth twice yung y FERROUS SULFATE 325 (65 FE) MG TABS 430775 FERROUS SULF ATE Inactive HYDROCODONE-ACETAMINOPHEN 7.5-500 MG [...] PRN Pain 2011 HYDROCODONE-ACETAMINOPHEN 5-325 MG TABS 929417 HYDROCODONE-ACETAMINOPHEN Inactive DOXYCYCLINE HYCLATE 100 MG CAPS Take one (1) tablet by mouth twice a day DOXYCYCLINE HYCLATE 100 MG CAPS 096642 DOXYCYCLINE HYCLATE Inactive PENICILLIN V POTASSIUM 500 MG TAB 1 four times a day 2 PENICILLIN V POTASSIUM 500 MG TAB 267223 PENICILLIN V POTASSIUM Dulzura ctive PRISTIQ 50 MG [id number] 1 po qd PRISTIQ 50 MG [id number] DESVENLAFAXINE SUCCINATE Inactive TYLENOL/CODEINE #3 300-30 MG TAB 1-2 po q6hr PRN Pain TYLENOL/CODEINE #3 300-30 MG TAB 444159 ACETAMINOPHEN-CODEINE Inact krishna CEPHALEXIN 500 MG TABS Take one by mouth four times daily, morning, noon, early evening and bedtime. CEPHALEXIN 500 MG TABS 924305 CEPHALEXIN Inactive LORTAB 5 5-500 MG TABS 1/2 to 1 tablet by mouth go ry 6 hours as needed for pain LORTAB 5 5-500 MG TABS HYDROCODONE-A CETAMINOPHEN Inactive AMITRIPTYLINE HCL 25 MG TAB 1 tab by mouth daily 60 minutes before bedtime AMITRIPTYLINE HCL 25 MG TAB 395750 AMITRIPTYLINE HCL Inactive AMOXICILLIN 500 MG TABS 2 tabs PO bid x 10 d 7 AMOXICILLIN 500 MG TABS 434110 AMOXICILLIN Inactive IMPLANON 68 MG IMPL IMPLANTED IN LEFT ARM IMPLANON 68 MG IMPL ETONOGESTREL Inactive HYDROCODONE-ACETAMINOPHEN 5-325 MG TABS 1 PO tid PRN pain 5 HYDROCODONE-ACETAMINOPHEN 5-325 MG TABS 749158 HYDROCODONE-ACETAMIN OPHEN Inactive BACTRIM DS 800-160 MG TAB 1 tab by mouth twice daily 2 BACTRIM DS 800-160 MG TAB TRIMETHOPRIM-SULFAMETHOXAZOLE Inac tive CEPHALEXIN 500 MG CAPS 1 PO bid x 7 days CEPHALEXIN 500 MG CAPS 634145 CEPHALEXIN Inactive HYDROCODONE-ACETAMINOPHEN 5-325 MG TABS 1 tab by mouth every 6 hours as needed HYDROCODONE-ACETAMINOPHEN 5-325 MG TABS 268704 HYDROCODONE-ACETAMINOPHEN Inactive PROMETHAZINE-CODEINE 6.25-10 MG/5ML SYRP 1 tsp every 6 hrs prn c ough PROMETHAZINE-CODEINE 6.25-10 MG/5ML SYRP 058513 PROMETH AZINE-CODEINE Inactive IBUPROFEN 800 MG TAB 1 pill three times daily as needed for pain IBUPROFEN 800 MG TAB 762318 IBUPROFEN Inactive KEFLEX 500 MG CAP 1 tab po tid KEFLEX 500 MG CAP 933226 CEPHALEXIN Inactive HYDROCODONE-ACETAMINOPHEN 7.5-325 MG TABS 1 four times a day as needed for pain HYDROCODONE-ACETAMINOPHEN 7.5-325 MG TABS 769999 HYDROCODONE-ACETAMINOPHEN Inactive BACTRIM DS 800-160 MG TABS by mouth twice a day 11/05 BACTRIM DS 800-160 MG TABS SULFAMETHOXAZOLE-TRIMETHOPRIM Inactive IBUPROFEN 800 MG TABS 1 tid prn IBUPROFEN 800 MG TABS 958637 IBUPROFEN Inactive ENDOCET 10-325 MG TABS 1 q 6 hr prn ENDOC ET 10-325 MG TABS 0770126 OXYCODONE-ACETAMINOPHEN Inactive HYDROCODONE-ACETAMINOPHEN 7.5-325 MG TABS 1 by mouth e very 6 hours as needed for pain HYDROCODONE-ACETAMINOPHEN 7.5-325 MG TABS 545204 HYDROCODONE-ACETAMINOPHEN Inactive PERCOCET 7.5-325 MG TABS 1 PO q 8 hrs PRN pain PERCOCET 7.5-325 MG TABS 3569275 OXYCODONE-ACETAMINOPHEN Inactive LIDODERM 5 % PTCH One patch to painful area HI N. On for 12 hrs, off for 12 hrs. LIDODERM 5 % PTCH 0490595 LIDOCAINE Inactiv e PERCOCET 7.5-325 MG TABS 1 PO tid PRN pain PERCOCET 7.5- 325 MG TABS 9441770 OXYCODONE-ACETAMINOPHEN Inactive MOBIC 15 MG TABS 1 tab daily MOBIC 15 MG TABS 15 2695 MELOXICAM Inactive CYCLOBENZAPRINE HCL 10 MG TABS 1/2 - 1 tab PO tid PRN back p ain, muscle spasm CYCLOBENZAPRINE HCL 10 MG TABS 169656 CYCLOBENZA JOSEPH HCL Inactive LORATADINE 10 MG TABS 1 tablet by mouth daily LORATADINE 10 MG TABS 168908 LORATADINE Inactive HYDROCODONE-ACETAMINOPHEN 10-325 MG TABS 1 by mouth ev chaka 8 hours as needed for pain HYDROCODONE-ACETAMINOPHEN 10-325 MG TABS 390203 HYDROCODONE-ACETAMINOPHEN Inactive LC-5 LIDOCAINE 5 % CREA apply 1 time daily to affected area 2013 LC-5 LIDOCAINE 5 % CREA LIDOCAINE (ANORECTAL) In active PERCOCET 5-325 MG TAB 1 every 6 hours as needed PERCOCET 5-325 MG TAB 8521847 OXYCODONE-ACETAMINOPHEN Inactive KEFLEX 500 MG CAP 1 po qid KEFLEX 500 MG CAP 30 9114 CEPHALEXIN Inactive PROAIR HFA 108 (90 BASE) MCG/ACT AERS 2 puff q 4-6 hrs PRN 01/24 PROAIR HFA 108 (90 BASE) MCG/ACT AERS ALBUTEROL SULFATE Inactive AMOXICILLIN 875 MG TABS 1 tab by mouth twice daily 201 07/18/07 AMOXICILLIN 875 MG TABS 917741 AMOXICILLIN Inactive KEFLEX 500 MG CAP 1 po tid x 10 days KEFLEX 500 MG CAP 236253 CEPHALEXIN Inactive AMOXICILLIN 875 MG TABS 1 tab by mouth twice daily 201 07/19/27 AMOXICILLIN 875 MG TABS 259527 AMOXICILLIN Inactive AMOXICILLIN 875 MG TABS 1 tab by mouth twice daily 201 08/09/13 AMOXICILLIN 875 MG TABS 013854 AMOXICILLIN Inactive CIPRO 500 MG TAB 1 tablet by mouth twice daily CIPRO 500 MG TAB 459305 CIPROFLOXACIN HCL Inactive BACTRIM DS 800-160 MG TAB 1 tab by mouth twice daily 2 BACTRIM DS 800-160 MG TAB TRIMETHOPRIM-SULFAMETHOXAZOLE Inac tive LEVAQUIN 500 MG TABS 1 PO q day x 7 days LEVAQUIN 500 MG TABS 588469 LEVOFLOXACIN Inactive CLINDAMYCIN HCL 300 MG CAPS 1 po QID x 7 days CLINDAMYCIN HCL 300 MG CAPS 683090 CLINDAMYCIN HCL Inactive AUGMENTIN 875-125 MG TAB 1 tab by mouth twice daily with food 22/05/07 AUGMENTIN 875-125 MG TAB 676764 AMOXICILLIN-POT [place]ULA [place] Inactive DIFLUCAN 150 MG TAB 1 qODay x 2 doses DIFLUCAN 150 MG TAB 227459 FLUCONAZOLE Inactive PREDNISONE 20 MG TAB 2 tabs daily for 3 days, 1 t ab daily for 3 days, 1/2 tab daily for 2 days PREDNISONE 20 MG TAB 724560 PREDNISON E Inactive Advance Directives Directive Description Start Date PERMISSION TO SHARE Immunizations Vaccine Administration Date Value Standard Alf cription Seasonal influenza vaccine, injectable, containing preservative, for > 3 years old (Afluria, FluLaval, Fluzone, Fluvirin, Fluarix, Agriflu(>= 18 yo)) Fluzone (>3 yrs.) [[id number]] Influenza, seasonal, inject able Seasonal influenza vaccine, injectable, preservative free, for > 3 years old (Afluria, FluLaval, Fluzone, Fluvirin, Fluarix, Agriflu(>= 18 yo)) Fluzone preservative free (>3 yrs.) [[id number]] Influenza, seasonal, injectable, preservative free Seasonal influenza vaccine, injectable, containing preservative, for > 3 years old (Afluria, FluLaval, Fluzone, Fluvirin, Fluarix, Agriflu(>= 18 yo)) Fluzone (>3 yrs.) [[id number]] Influenza, seasonal, inject able Seasonal influenza vaccine, injectable, containing preservative, for > 3 years old (Afluria, FluLaval, Fluzone, Fluvirin, Fluarix, Agriflu(>= 18 yo)) Fluzone (>3 yrs.) [[id number]] Influenza, seasonal, inject able dT (Diphtheria and [...] pressure, diastolic - 8462-4 84 mm[Hg] BP rbieiro blood pressure, systolic - 8480-6 138 mm[Hg] [...] negative Encounters Code Encounter Date Provider Facility CPT-17523 Level 2 Est. Patient 07:49:32 CDT Kalpesh goins MD [facility] CPT-51504 Level 3 New Patient 15:47:11 [employer] Bj huber MD [facility] CPT-80389 Level 4 Est. Patient 14:37:38 VP IN[employer]ICS Abdirahman Rios MD [facility] CPT-49466 Level 2 Est. Patient 13:32:17 [employer] IN[employer] Kalpesh goins MD [facility] CPT-00457 Level 3 Est. Patient 17:32:57 VP IN[employer]ICS Edilberto tiwari DO [facility] CPT-99691 Level 3 Est. Patient 17:22:33 VP IN[employer]ICS Edilberto tiwari [facility] CPT-74063 Level 2 Est. Patient 16:57:09 VP IN[employer] Kalpesh goins MD [facility] CPT-64621 Level 3 Est. Patient 14:03:08 [employer] Abdirahman Rios MD [facility] CPT-51880 Level 3 Est. Patient 18:12:[address] [facility] [place] CPT-25443 Level 3 Est. Patient 19:34:46 CDT Shola Wright [facility] CPT-37332 Level 3 Est. Patient 14:19:37 CDT Abdirahman Rios MD [facility] CPT-88841 Level 3 Est. Patient 14:11:58 CDT Kalpesh goins MD [facility]-60878 Level 3 Est. Patient 16:50:00 CDT Michelle MERCADO [facility] CPT-00444 Level 3 Est. Patient 17:11:32 VP IN[employer] Brandie bates MD PhD [facility] CPT-98201 Level 3 Est. Patient 16:31:47 [employer] Shola Wright [facility] CPT-53216 Level 3 Est. Patient 17:51:10 [employer] Abhinav Galvan MD [facility] CPT-22096 Level 4 Est. Patient 12:54:56 [employer] IN[employer] Kalpesh goins MD [facility]-49754 Level 4 Est. Patient 12:53:56 VP IN[employer]ICS Kalpesh goins MD [facility]-67813 Level 3 Est. Patient 17:56:58 CDT Shola Wright [facility] CPT-81646 Level 3 Est. Patient 14:26:20 CDT Janak butcher [facility] CPT-44426 Level 3 Est. Patient 09:38:41 CDT Shola Thao Adriana [facility] CPT-75389 Level 3 Est. Patient 14:45:26 CDT Edilberto tiwari [facility] CPT-55633 Level 3 Est. Patient 10:51:33 [facility] Level 3 Est. Patient 11:57:55 VP IN[employer]ICS Shola Thao Adriana [facility] CPT-97726 Level 3 Est. Patient 09:53:33 VP IN[employer]ICS Edilberto tiwari [facility] CPT-69328 Level 3 Est. Patient 14:42:54 [employer] IN[employer] Abhinav Galvan MD [facility] CPT-39905 Level 3 Est. Patient 15:10:02 CDT Janak butcher [facility] CPT-14080 Level 3 Est. Patient 15:20:20 CDT Theo dennis MD [facility] CPT-01303 Level 2 Est. Patient 14:08:57 CDT Kalpesh goins MD [facility] CPT-80356 Level 3 Est. Patient 13:56:19 CDT Abdirahman Rios MD [facility] CPT-10723 Level 3 Est. Patient 13:59:37 CDT Abdirahman Rios MD [facility] CPT-08628 Level 2 Est. Patient 14:44:59 CDT Kalpesh goins MD [facility] CPT-42501 Level 3 Est. Patient 06:06:23 CDT Edilberto tiwari [facility] CPT-48495 Level 3 Est. Patient 15:23:54 CDT Abdirahman Rios MD [facility] CPT-47716 Level 3 Est. Patient 15:43:49 CDT Abdirahman Rios MD [facility] CPT-24181 Level 3 Est. Patient 12:46:47 VP IN[employer] Abdirahman Rios MD [facility] CPT-99347 Level 3 Est. Patient 08:13:35 VP IN[employer] Abdirahman Rios MD [facility] CPT-54813 Level 2 Est. Patient 09:36:42 VP IN[employer] Abdirahman Rios MD [facility] CPT-61681 Level 3 Est. Patient 10:56:43 CDT Abdirahman Rios MD [facility] CPT-46833 Level 3 Est. Patient 18:24:52 CDT Abdirahman Rios MD [facility] CPT-62313 Level 3 Est. Patient 13:27:22 CDT Abdirahman Rios MD [facility] Procedures Code Procedure Name Date Entry Date Standard Desc ription CPT-35993 Postop F/U Visit 11:29:00 VP [employer] CPT-J0696 Rocephin 1000 mg (Ceftriaxone) 17:22:33 [employer] CPT-50790 Postop F/U Visit 18:41:07 [employer] CPT-72156 Postop F/U Visit 08:19:08 [employer] CPT-85430 Immunization Single Admin 16:41:53 CDT 2013 CPT-09977 Fluzone Quadrivalent Intramuscular Suspe nsion 0.5 ML 16:41:53 CDT CPT-OV Office Visit 16:39:18 CDT CPT-OV Office Visit 16:16:36 CDT CPT-OV Office Visit 15:34:48 CDT CPT-74351 Postop F/U Visit 14:50:12 CDT CPT-35143 Postop F/U Visit 14:41:10 CDT CPT-82468 Venipuncture Draw Fee 11:38:04 [employer] CPT-03071 Postop F/U Visit 19:02:59 [employer] CPT-18112 Postop F/U Visit 12:04:54 [employer] IN[employer] CPT-86519 Administration single or combination vac cine inc oral 15:56:43 CDT CPT-76671 Influenza split virus > age 3 15:56:43 CDT CPT-63480 Hand comp min 3V 14:25:19 CDT CPT-12901 Postop F/U Visit 21:40:51 CDT CPT-48888 Postop F/U Visit 10:58:43 CDT CPT-62858 Administration single or combination vac cine inc oral 12:33:54 [employer] IN[employer] CPT-34064 Influenza Preservative Free split virus >age 3 12:33:54 [employer] CPT-85866 Administration single or combination vac cine inc oral 09:30:51 CDT CPT-18411 Influenza split virus > age 3 09:30:51 CDT CPT-24311 Postop F/U Visit 15:14:53 CDT CPT-09362 Postop F/U Visit 13:50:14 CDT CPT-72194 Postop F/U Visit 13:34:52 CDT CPT-OV Office Visit 16:55:03 CDT CPT-44787 [place] of cervix w bx ECC 13:32:50 CDT 10/19 CPT-J1885 Toradol 60 mg (Ketorolac) 15:31:59 CDT 2011 CPT-J1885 Toradol 60 mg (Ketorolac) 15:23:54 CDT 2011 CPT-61102 Visit 11:34:37 [employer] CPT-14642 Visit 10:52:39 [employer] CPT-85291 Visit 10:12:02 [employer] CPT-08168 Visit 11:22:43 [employer] CPT-90500 Visit 11:24:12 [employer] CPT-63238 Visit 10:47:05 [employer] CPT-OV Office Visit 10:26:16 [employer] CPT-OV Office Visit 15:34:31 [employer] CPT-53328 Visit 10:42:08 [employer] CPT-01595 Visit 10:52:45 [employer] CPT-000 Give Appropriate Flu Vaccine 16:56:41 CDT 2 CPT-96347 Administration single or combination vac cine inc oral 10:33:21 CDT CPT-67524 Influenza split virus > age 3 10:33:21 CDT CPT-14663 Visit 13:23:09 CDT CPT-05859 Visit 18:24:52 CDT CPT-32033 [facility] comp > 14 weeks 12:07:49 CDT 04/07
--- OUTSIDE RECORDS SUMMARY | 2020-01-18 17:00 | XMS REPORT ---
Author Author Jeri PRADO Organization [facility] Address [address] [place] [address] Care Team Providers [employer] Web Developer Name Role Phone CADE PRADO Unavailable PROBLEMS Type Condition ICD9-CM Code [id number] Code Onset Dates Condition S tatus SNOMED Code Problem Pain at surgical incision R20.8 Acti ve 02260967 Problem Interstitial cystitis N30.10 Active 018852119 Problem Ingrown left big toenail L60.0 Activ e 504303633 Problem Other chronic pain G89.29 Active 8 5780608 Problem Encounter for immunization Z23 Act krishna 048358305 Problem Pilonidal cyst L05.91 Active 30576 008 Problem Ulcer L98.499 Active [id number] ALLERGIES No Information SOCIAL HISTORY Never Assessed PLAN OF CARE VITAL SIGNS MEDICATIONS Medication Instructions Dosage Frequency Start Date End Date Duration S tatus Hydrocodone-Acetaminophen 7.5-325 MG Orally every 6 hr s as needed for pain for 7 days then 1 tab every 8 hrs prn pain for 7 days. 1 tablet Jul, 017 Active RESULTS No Results PROCEDURES No Known [...]
--- OUTSIDE RECORDS SUMMARY | 2020-01-18 17:00 | XMS REPORT | Clinical Summary ---
[...] Julian MD Dysuria Hypoglycemia 251.2 Active Joann LKEIN Hypoglycemia, unspecified Anxiety 300.00 Active Joann Grace [...] sinusitis, unspecified Hidradenitis 705.83 Active Hira Moser SYNTHETIC PLASTERER Hidradenitis AFTERCARE FOLLOW SURGERY SKIN&SUBCUT TISSUE NEC V58.77 07/28 Active Kalpesh Dong MD Aftercare following surgery of the skin and subcutaneous tissue, NEC Impetigo 684 Active Edilberto W Ned DO Im petigo , INCIDENTAL PROBLEM ICD-V22.2 [...] 500 MG CAP 1 po qid CEPHALEXIN 457075806 20 No Longer Active Kalpesh Dong MD Active PERCOCET 5-325 MG TAB 1 every 6 hours as needed OXYCODONE-ACETAMINOPHEN 90504117720 No Longer Active Shola MCGILL Active LC-5 LIDOCAINE 5 % CREA apply 1 time daily to affected area 2013 LIDOCAINE (ANORECTAL) 83323940083 No Longer Active Hira garciaell SYNTHETIC PLASTERER Active HYDROCODONE-ACETAMINOPHEN 5-325 MG TABS 2 tablets by m outh every 8 hours as needed for pain HYDROCODONE-ACETAMINOPHEN 14127962412 Acti ve Shola MCGILL Active HYDROCODONE-ACETAMINOPHEN 10-325 MG TABS 1 by mouth ev chaka 8 hours as needed for pain HYDROCODONE-ACETAMINOPHEN 52961064414 No Longer Active Jillina Frazell SYNTHETIC PLASTERER Active LORATADINE 10 MG TABS 1 tablet by mouth daily L ORATADINE 48629980297 No Longer Active Jillina Frazell SYNTHETIC PLASTERER Active DIFLUCAN 150 MG TAB 1 qODay x 2 doses FLUCONAZO LE 48542925303 No Longer Active Jillina Frazell SYNTHETIC PLASTERER Active CYCLOBENZAPRINE HCL 10 MG TABS 1/2 - 1 tab PO tid PRN back p ain, muscle spasm CYCLOBENZAPRINE HCL 44611632033 No Longer Active Karen herson Frazell SYNTHETIC PLASTERER Active AUGMENTIN 875-125 MG TAB 1 tab by mouth twice daily with food 20 22/05/07 AMOXICILLIN-POT CLAVULANATE 92000166775 No Longer Active Loida Rios MD Active MOBIC 15 MG TABS 1 tab daily MELOXICAM 029156879 14 No Longer Active Abdirahman Rios MD Active PERCOCET 7.5-325 MG TABS 1 PO tid PRN pain OXYCODONE-ACETAMINOPHEN 75271883264 No Longer Active Abdirahman Rios MD Active LIDODERM 5 % PTCH One patch to painful area MA N. On for 12 hrs, off for 12 hrs. LIDOCAINE 97673414054 No Longer Active Abdirahman Rios MD Active PERCOCET 7.5-325 MG TABS 1 PO q 8 hrs PRN pain OXYCODONE-ACETAMINOPHEN 04362422450 No Longer Active Shola MCGILL Active HYDROCODONE-ACETAMINOPHEN 7.5-325 MG TABS 1 by mouth e very 6 hours as needed for pain HYDROCODONE-ACETAMINOPHEN 30594398015 No Longer Active Good Julian MD Active CLINDAMYCIN HCL 300 MG CAPS 1 po QID x 7 days CLINDAMYCIN HCL 56805827233 No Longer Active Abdirahman Rios MD Activ e BACTRIM DS 800-160 MG TABS 1 po BID x 7 days 5 SULFAMETHOXAZOLE-TRIMETHOPRIM 64358127390 No Longer Active Abdirahman Rios MD Active ENDOCET 10-325 MG TABS 1 q 6 hr prn OXYCODONE-ACETAMINOPHEN 25578240646 No Longer Active Abdirahman Rios MD Active IBUPROFEN 800 MG TABS 1 tid prn IBUPROFEN 658271 03267 No Longer Active Abdirahman Rios MD Active BACTRIM DS 800-160 MG TABS by mouth twice a day 11/05 SULFAMETHOXAZOLE-TRIMETHOPRIM 36874879895 No Longer Active Good Julian MD Active HYDROCODONE-ACETAMINOPHEN 7.5-325 MG TABS 1 four times a day as needed for pain HYDROCODONE-ACETAMINOPHEN 83366293186 No Longer Activ e Good Julian MD Active KEFLEX 500 MG CAP 1 tab po tid CEPHALEXIN 286266 26939 No Longer Active Hira Moser APRN Active IBUPROFEN 800 MG TAB 1 pill three times daily as needed for pain IBUPROFEN 23517457402 No Longer Active Kalpesh Dong MD Active PROMETHAZINE-CODEINE 6.25-10 MG/5ML SYRP 1 tsp every 6 hrs prn c ough PROMETHAZINE-CODEINE 47510876212 No Longer Active Kalpesh Carr Active ALPRAZOLAM 0.5 MG TABS 1 PO bid PRN ALPRAZOLAM 062766 29708 Active Jillina Frazell SYNTHETIC PLASTERER Active HYDROCODONE-ACETAMINOPHEN 5-325 MG TABS 1 tab by mouth every 6 hours as needed HYDROCODONE-ACETAMINOPHEN 57028548261 No Longer Activ e Shola MCGILL Active CEPHALEXIN 500 MG CAPS 1 PO bid x 7 days CEPHAL EXIN 58006792901 No Longer Active Shola MCGILL Active BACTRIM DS 800-160 MG TAB 1 tab by mouth twice daily 2 TRIMETHOPRIM-SULFAMETHOXAZOLE 04576359722 No Longer Active Kalpesh Dong MD Active HYDROCODONE-ACETAMINOPHEN 5-325 MG TABS 1 PO tid PRN pain 5 HYDROCODONE-ACETAMINOPHEN 26267973728 No Longer Active Abhinav Galvan MD Active IMPLANON 68 MG IMPL IMPLANTED IN LEFT ARM ETONO GESTREL 99577660644 No Longer Active Hira Moser SYNTHETIC PLASTERER Active AMOXICILLIN 500 MG TABS 2 tabs PO bid x 10 d AM OXICILLIN 24624530146 No Longer Active Kalpesh Dong MD Active LEVAQUIN 500 MG TABS 1 PO q day x 7 days LEVOFL OXACIN 34672614963 No Longer Active Shola MCGILL Active PROAIR HFA 108 (90 BASE) MCG/ACT AERS 2 puff q 4-6 hrs PRN ALBUTEROL SULFATE 59502024857 Active Edilberto Marino DO Active FIORICET 50-325-40 MG TABS 2 PO q 8 hrs PRN FOSTER [id number] Active Shola MCGILL Active AMITRIPTYLINE HCL 25 MG TAB 1 tab by mouth daily 60 minutes before bedtime AMITRIPTYLINE HCL 11914311508 No Longer Active Shola MCGILL Active LORTAB 5 5-500 MG TABS 1/2 to 1 tablet by mouth go ry 6 hours as needed for pain HYDROCODONE-ACETAMINOPHEN 84492241966 No Longer Active Shola MCGILL Active CEPHALEXIN 500 MG TABS Take one by mouth four times daily, morning, noon, early evening and bedtime. CEPHALEXIN 27083421916 No Long er Active Hira Moser SYNTHETIC PLASTERER Active TYLENOL/CODEINE #3 300-30 MG TAB 1-2 po q6hr PRN Pain ACETAMINOPHEN-CODEINE 79845025332 No Longer Active Edilberto Marino DO Active PRISTIQ 50 MG [id number] 1 po qd DESVENLAFAXI NE SUCCINATE 91740691134 No Longer Active Edilberto Marino DO Active PENICILLIN V POTASSIUM 500 MG TAB 1 four times a day 2 PENICILLIN V POTASSIUM 17871408567 No Longer Active Edilberto Marino DO Active DOXYCYCLINE HYCLATE 100 MG CAPS Take one (1) tablet by mouth twice a day DOXYCYCLINE HYCLATE 08627886271 No Longer Active Rnonie Galvan MD Active HYDROCODONE-ACETAMINOPHEN 5-325 MG TABS 1 po q 6hr PRN Pain 2011 HYDROCODONE-ACETAMINOPHEN 25956919463 No Longer Active Jerson Perez RN Active BACTRIM DS 800-160 MG TAB 1 tab by mouth twice daily 2 TRIMETHOPRIM-SULFAMETHOXAZOLE 73510846959 No Longer Active Kalpesh Dong MD Active LORTAB 5 5-500 MG TABS 1/2 to 1 tablet by mouth go ry 4 hours as needed for pain HYDROCODONE-ACETAMINOPHEN 64772108731 No Longer Active Kalpesh Dong MD Active GENERESS FE 0.8-25 MG-MCG CHEW Take one by mouth daily NORETHIN-ETH ESTRADIOL-FE 33589618984 No Longer Active Kalpesh Dong MD Active HYDROCODONE-ACETAMINOPHEN 7.5-500 MG TABS 1-2 every 4 hours as needed HYDROCODONE-ACETAMINOPHEN 69431948302 No Longer Activ e Kalpesh Dong MD Active FERROUS SULFATE 325 (65 FE) MG TABS 1 tablet by mouth twice yung y FERROUS SULFATE 89531851516 No Longer Active Kalpesh Dong MD Active IBUPROFEN 600 MG TAB 1 po q6-8hr PRN IBUPROFEN 52614105960 No Longer Active Kalpesh Dong MD Active SPIRONOLACTONE 25 MG TAB 1 tablet by mouth daily 01/22 SPIRONOLACTONE 26837906516 No Longer Active Kalpesh Dong MD Acti ve HYDROCODONE-ACETAMINOPHEN 7.5-325 MG TABS 1 po QID PRN Pain 2011 HYDROCODONE-ACETAMINOPHEN 33614884228 No Longer Active Kalpesh Dong MD Active CLINDAMYCIN HCL 300 MG CAPS 1 po q6hr x 7 days CLINDAMYCIN HCL 66961219579 No Longer Active Edilberto Marino DO Active PREDNISONE 20 MG TAB 2 tabs daily for 4 days, 1 t ab daily for 4 days, 1/2 tab daily for 4 days PREDNISONE 38825042713 No Longer Active Edilberto Marino DO Active PERCOCET 5-325 MG TABS 1 tablet by mouth every 6 hours as ne eded for pain OXYCODONE-ACETAMINOPHEN 59901980971 No Longer Active Abdirahman Rios MD Active VITAMINS TABS Take one by mouth daily MV & MIN W/FE-FA TABS 68494639888 No Longer Active Abdirahman Rios MD Active LUIS 3-0.02 MG TABS 1 tablet by mouth daily as directed DROSPIRENONE-ETHINYL ESTRADIOL 27628063363 No Longer Active Abdirahman Rios MD Active LORATADINE 10 MG TABS 1 tablet by mouth daily L ORATADINE 62698138375 No Longer Active Kalpesh Dong MD Active HYDROCODONE-ACETAMINOPHEN 5-325 MG TABS 1 po q 6hr PRN Pain 2010 HYDROCODONE-ACETAMINOPHEN 56954456064 No Longer Active Edilberto Marino DO Active BACTRIM DS 800-160 MG TAB 1 tab by mouth twice daily 2 TRIMETHOPRIM-SULFAMETHOXAZOLE 16974095450 No Longer Active Abdirahman Rios MD Active 28-0.8 MG TABS Take one by mouth daily 09/20 VIT-FE FUMARATE-FA 26456208815 No Longer Active Abdirahman Rios MD Active CIPRO 500 MG TAB 1 tablet by mouth twice daily CIPROFLOXACIN HCL 61720864572 No Longer Active Abdirahman Rios MD Active BENADRYL 25 MG CAP 1 po q8hr PRN Congestion DIPHENHYDRAMINE HCL 31787237378 No Longer Active Abdirahman Rios MD Active ZOLOFT 50 MG TAB 1 po qd SERTRALINE HCL 324356 84349 No Longer Active Abdirahman Rios MD Active AMOXICILLIN 875 MG TABS 1 tab by mouth twice daily 201 08/09/13 AMOXICILLIN 46936353004 No Longer Active Abdirahman Rios MD Activ e AMOXICILLIN 875 MG TABS 1 tab by mouth twice daily 201 07/19/27 AMOXICILLIN 22705114848 No Longer Active Abdirahman Rios MD Activ e BACTRIM DS 800-160 MG TAB 2 tab by mouth twice daily 2 TRIMETHOPRIM-SULFAMETHOXAZOLE 83277299775 No Longer Active Abdirahman Rios MD Active KEFLEX 500 MG CAP 1 po tid x 10 days CEPHALEXIN 82392705137 No Longer Active Abdirahman Rios MD Active AMOXICILLIN 875 MG TABS 1 tab by mouth twice daily 201 07/18/07 AMOXICILLIN 19497827947 No Longer Active Abdirahman Rios MD Activ e BACTRIM DS 800-160 MG TAB 2 tab by mouth twice daily 2 BACTRIM DS 800-160 MG TAB TRIMETHOPRIM-SULFAMETHOXAZOLE Inactive ZOLOFT 50 MG TAB 1 po qd ZOLOFT 50 MG TAB 3129 41 SERTRALINE HCL Inactive BENADRYL 25 MG CAP 1 po q8hr PRN Congestion BENADRYL 25 MG CAP 3322479 DIPHENHYDRAMINE HCL Inactive 28-0.8 MG TABS Take one by mouth daily 09/20 28-0.8 MG TABS VIT-FE FUMARATE-FA Inactive HYDROCODONE-ACETAMINOPHEN 5-325 MG TABS 1 po q 6hr PRN Pain 2010 HYDROCODONE-ACETAMINOPHEN 5-325 MG TABS 184042 HYDROCODONE-ACETAMINOPHEN Inactive LORATADINE 10 MG TABS 1 tablet by mouth daily LORATADINE 10 MG TABS 429920 LORATADINE Inactive LUIS 3-0.02 MG TABS 1 tablet by mouth daily as directed LUIS 3-0.02 MG TABS DROSPIRENONE-ETHINYL ESTRADIOL Inactive VITAMINS TABS Take one by mouth daily VITAMINS TABS MV & MIN W/FE-FA TABS Inactive PERCOCET 5-325 MG TABS 1 tablet by mouth every 6 hours as ne eded for pain PERCOCET 5-325 MG TABS 1865209 OXYCODONE-ACETAMIN OPHEN Inactive PREDNISONE 20 MG TAB 2 tabs daily for 4 days, 1 t ab daily for 4 days, 1/2 tab daily for 4 days PREDNISONE 20 MG TAB 526073 PREDNISON E Inactive CLINDAMYCIN HCL 300 MG CAPS 1 po q6hr x 7 days CLINDAMYCIN HCL 300 MG CAPS 287460 CLINDAMYCIN HCL Inactive HYDROCODONE-ACETAMINOPHEN 7.5-325 MG TABS 1 po QID PRN Pain 2011 HYDROCODONE-ACETAMINOPHEN 7.5-325 MG TABS 540675 HYDROCODONE-ACETAMINOPHEN Inactive SPIRONOLACTONE 25 MG TAB 1 tablet by mouth daily 01/22 SPIRONOLACTONE 25 MG TAB 132680 SPIRONOLACTONE Inactive IBUPROFEN 600 MG TAB 1 po q6-8hr PRN IBUPROFEN 600 MG TAB 325610 IBUPROFEN Inactive FERROUS SULFATE 325 (65 FE) MG TABS 1 tablet by mouth twice yung y FERROUS SULFATE 325 (65 FE) MG TABS 756466 FERROUS SULF ATE Inactive HYDROCODONE-ACETAMINOPHEN 7.5-500 MG [...] PRN Pain 2011 HYDROCODONE-ACETAMINOPHEN 5-325 MG TABS 731027 HYDROCODONE-ACETAMINOPHEN Inactive DOXYCYCLINE HYCLATE 100 MG CAPS Take one (1) tablet by mouth twice a day DOXYCYCLINE HYCLATE 100 MG CAPS 867433 DOXYCYCLINE HYCLATE Inactive PENICILLIN V POTASSIUM 500 MG TAB 1 four times a day 2 PENICILLIN V POTASSIUM 500 MG TAB 620320 PENICILLIN V POTASSIUM Tower ctive PRISTIQ 50 MG [id number] 1 po qd PRISTIQ 50 MG [id number] DESVENLAFAXINE SUCCINATE Inactive TYLENOL/CODEINE #3 300-30 MG TAB 1-2 po q6hr PRN Pain TYLENOL/CODEINE #3 300-30 MG TAB 109931 ACETAMINOPHEN-CODEINE Inact krishna CEPHALEXIN 500 MG TABS Take one by mouth four times daily, morning, noon, early evening and bedtime. CEPHALEXIN 500 MG TABS 972332 CEPHALEXIN Inactive LORTAB 5 5-500 MG TABS 1/2 to 1 tablet by mouth go ry 6 hours as needed for pain LORTAB 5 5-500 MG TABS HYDROCODONE-A CETAMINOPHEN Inactive AMITRIPTYLINE HCL 25 MG TAB 1 tab by mouth daily 60 minutes before bedtime AMITRIPTYLINE HCL 25 MG TAB 608676 AMITRIPTYLINE HCL Inactive AMOXICILLIN 500 MG TABS 2 tabs PO bid x 10 d 7 AMOXICILLIN 500 MG TABS 386706 AMOXICILLIN Inactive IMPLANON 68 MG IMPL IMPLANTED IN LEFT ARM IMPLANON 68 MG IMPL ETONOGESTREL Inactive HYDROCODONE-ACETAMINOPHEN 5-325 MG TABS 1 PO tid PRN pain 5 HYDROCODONE-ACETAMINOPHEN 5-325 MG TABS 290763 HYDROCODONE-ACETAMIN OPHEN Inactive BACTRIM DS 800-160 MG TAB 1 tab by mouth twice daily 2 BACTRIM DS 800-160 MG TAB TRIMETHOPRIM-SULFAMETHOXAZOLE Inac tive CEPHALEXIN 500 MG CAPS 1 PO bid x 7 days CEPHALEXIN 500 MG CAPS 906989 CEPHALEXIN Inactive HYDROCODONE-ACETAMINOPHEN 5-325 MG TABS 1 tab by mouth every 6 hours as needed HYDROCODONE-ACETAMINOPHEN 5-325 MG TABS 628370 HYDROCODONE-ACETAMINOPHEN Inactive PROMETHAZINE-CODEINE 6.25-10 MG/5ML SYRP 1 tsp every 6 hrs prn c ough PROMETHAZINE-CODEINE 6.25-10 MG/5ML SYRP 688929 PROMETH AZINE-CODEINE Inactive IBUPROFEN 800 MG TAB 1 pill three times daily as needed for pain IBUPROFEN 800 MG TAB 502303 IBUPROFEN Inactive KEFLEX 500 MG CAP 1 tab po tid KEFLEX 500 MG CAP 393467 CEPHALEXIN Inactive HYDROCODONE-ACETAMINOPHEN 7.5-325 MG TABS 1 four times a day as needed for pain HYDROCODONE-ACETAMINOPHEN 7.5-325 MG TABS 783169 HYDROCODONE-ACETAMINOPHEN Inactive BACTRIM DS 800-160 MG TABS by mouth twice a day 11/05 BACTRIM DS 800-160 MG TABS SULFAMETHOXAZOLE-TRIMETHOPRIM Inactive IBUPROFEN 800 MG TABS 1 tid prn IBUPROFEN 800 MG TABS 622918 IBUPROFEN Inactive ENDOCET 10-325 MG TABS 1 q 6 hr prn ENDOC ET 10-325 MG TABS 1094447 OXYCODONE-ACETAMINOPHEN Inactive HYDROCODONE-ACETAMINOPHEN 7.5-325 MG TABS 1 by mouth e very 6 hours as needed for pain HYDROCODONE-ACETAMINOPHEN 7.5-325 MG TABS 304514 HYDROCODONE-ACETAMINOPHEN Inactive PERCOCET 7.5-325 MG TABS 1 PO q 8 hrs PRN pain PERCOCET 7.5-325 MG TABS 4847247 OXYCODONE-ACETAMINOPHEN Inactive LIDODERM 5 % PTCH One patch to painful area MA N. On for 12 hrs, off for 12 hrs. LIDODERM 5 % PTCH 0512402 LIDOCAINE Inactiv e PERCOCET 7.5-325 MG TABS 1 PO tid PRN pain PERCOCET 7.5- 325 MG TABS 4627998 OXYCODONE-ACETAMINOPHEN Inactive MOBIC 15 MG TABS 1 tab daily MOBIC 15 MG TABS 15 2695 MELOXICAM Inactive CYCLOBENZAPRINE HCL 10 MG TABS 1/2 - 1 tab PO tid PRN back p ain, muscle spasm CYCLOBENZAPRINE HCL 10 MG TABS 179154 CYCLOBENZA JOSEPH HCL Inactive LORATADINE 10 MG TABS 1 tablet by mouth daily LORATADINE 10 MG TABS 404004 LORATADINE Inactive HYDROCODONE-ACETAMINOPHEN 10-325 MG TABS 1 by mouth ev chaka 8 hours as needed for pain HYDROCODONE-ACETAMINOPHEN 10-325 MG TABS 076217 HYDROCODONE-ACETAMINOPHEN Inactive LC-5 LIDOCAINE 5 % CREA apply 1 time daily to affected area 2013 LC-5 LIDOCAINE 5 % CREA LIDOCAINE (ANORECTAL) In active PERCOCET 5-325 MG TAB 1 every 6 hours as needed PERCOCET 5-325 MG TAB 5836639 OXYCODONE-ACETAMINOPHEN Inactive KEFLEX 500 MG CAP 1 po qid KEFLEX 500 MG CAP 30 9114 CEPHALEXIN Inactive AMOXICILLIN 875 MG TABS 1 tab by mouth twice daily 201 07/18/07 AMOXICILLIN 875 MG TABS 146534 AMOXICILLIN Inactive KEFLEX 500 MG CAP 1 po tid x 10 days KEFLEX 500 MG CAP 715433 CEPHALEXIN Inactive AMOXICILLIN 875 MG TABS 1 tab by mouth twice daily 201 07/19/27 AMOXICILLIN 875 MG TABS 603082 AMOXICILLIN Inactive AMOXICILLIN 875 MG TABS 1 tab by mouth twice daily 201 08/09/13 AMOXICILLIN 875 MG TABS 181195 AMOXICILLIN Inactive CIPRO 500 MG TAB 1 tablet by mouth twice daily CIPRO 500 MG TAB 217831 CIPROFLOXACIN HCL Inactive BACTRIM DS 800-160 MG TAB 1 tab by mouth twice daily 2 BACTRIM DS 800-160 MG TAB TRIMETHOPRIM-SULFAMETHOXAZOLE Inac tive LEVAQUIN 500 MG TABS 1 PO q day x 7 days LEVAQUIN 500 MG TABS 697736 LEVOFLOXACIN Inactive CLINDAMYCIN HCL 300 MG CAPS 1 po QID x 7 days CLINDAMYCIN HCL 300 MG CAPS 915684 CLINDAMYCIN HCL Inactive AUGMENTIN 875-125 MG TAB 1 tab by mouth twice daily with food 20 22/05/07 AUGMENTIN 875-125 MG TAB 171720 AMOXICILLIN-POT CLAVULA [place] Inactive DIFLUCAN 150 MG TAB 1 qODay x 2 doses DIFLUCAN 150 MG TAB 581289 FLUCONAZOLE Inactive Advance Directives Directive Description Start Date PERMISSION TO SHARE Immunizations Vaccine Administration Date Value Standard Alf cription Seasonal influenza vaccine, injectable, containing preservative, for > 3 years old (Afluria, FluLaval, Fluzone, Fluvirin, Fluarix, Agriflu(>= 18 yo)) Fluzone (>3 yrs.) [[id number]] Influenza, seasonal, inject able Seasonal influenza vaccine, injectable, preservative free, for > 3 years old (Afluria, FluLaval, Fluzone, Fluvirin, Fluarix, Agriflu(>= 18 yo)) Fluzone preservative free (>3 yrs.) [[id number]] Influenza, seasonal, injectable, preservative free Seasonal influenza vaccine, injectable, containing preservative, for > 3 years old (Afluria, FluLaval, Fluzone, Fluvirin, Fluarix, Agriflu(>= 18 yo)) Fluzone (>3 yrs.) [[id number]] Influenza, seasonal, inject able Seasonal influenza vaccine, injectable, containing preservative, for > 3 years old (Afluria, FluLaval, Fluzone, Fluvirin, Fluarix, Agriflu(>= 18 yo)) Fluzone (>3 yrs.) [[id number]] Influenza, seasonal, inject able dT (Diphtheria and [...] ... - Chemistry sodium, serum 140 mmol/L 495-857 3148/02/24 potassium, serum 4.3 mmol/L 3.5-5.2 chloride, serum [...] leukocyte count, blood 7.4 10^3/MM^3 10*3/mm3 4.6-10.2 mean corpuscular hemoglobin concentration, RBC 33.9 G/DL % 31.8-35.4 mean corpuscular hemoglobin, RBC 28.7 pg 27. 0-31.2 mean corpuscular volume, RBC 85 fL 80-97 hematocrit, blood 44.1 % 36.0-46.0 hemoglobin, blood 14.9 g/dL 12.0-16.0 red blood cell distribution width 13.9 % [...] 4.3-6.0 Lab Report: T3, TOTAL, INSULIN - Dog Daycare Provider ry triiodothyronine (T3), serum 78 ng/dL 76-181 Office Visit: low blood sugars - Chemis try cholesterol, target level 200 mg/dL triglyceride, target level 200 mg/dL HDL cholesterol, serum, target level 35 mg/dL LDL target level 100 mg/dL Encounters Code Encounter Date Provider Facility CPT-33993 Level 2 Est. Patient 13:32:17 ASSISTANT PROFESSOR SCULPTURE Kalpesh goins MD [facility] CPT-29943 Level 3 Est. Patient 17:32:57 ASSISTANT PROFESSOR SCULPTURE Edilberto tiwari [facility] CPT-54129 Level 3 Est. Patient 17:22:33 ASSISTANT PROFESSOR SCULPTURE Edilberto tiwari [facility] CPT-04268 Level 2 Est. Patient 16:57:09 ASSISTANT PROFESSOR SCULPTURE Kalpesh goins MD [facility] CPT-72356 Level 3 Est. Patient 14:03:08 ASSISTANT PROFESSOR SCULPTURE Abdirahman iRos MD [facility] CPT-21141 Level 3 Est. Patient 18:12:34 CDT Shola Wright [facility] CPT-89972 Level 3 Est. Patient 19:34:46 CDT Shola Wright [facility] CPT-55251 Level 3 Est. Patient 14:19:37 CDT Abdirahman Rios MD [facility] CPT-50005 Level 3 Est. Patient 14:11:58 CDT Kalpesh goins MD [facility] CPT-66271 Level 3 Est. Patient 16:50:00 CDT Ozielisaac Adrienne MERCADO [facility] CPT-02789 Level 3 Est. Patient 17:11:32 ASSISTANT PROFESSOR SCULPTURE Brandie bates MD PhD [facility] CPT-46002 Level 3 Est. Patient 16:31:47 ASSISTANT PROFESSOR SCULPTURE Shola Wright [facility] CPT-15671 Level 3 Est. Patient 17:51:10 ASSISTANT PROFESSOR SCULPTURE Abhinav Galvan MD [facility] CPT-75104 Level 4 Est. Patient 12:54:56 ASSISTANT PROFESSOR SCULPTURE Kalpesh goins MD [facility] CPT-67017 Level 4 Est. Patient 12:53:56 ASSISTANT PROFESSOR SCULPTURE Kalpesh goins MD [facility] CPT-95208 Level 3 Est. Patient 17:56:58 CDT Shola Wright [facility] CPT-95263 Level 3 Est. Patient 14:26:20 CDT Janak butcher [facility] CPT-94974 Level 3 Est. Patient 09:38:41 CDT Shola Wright [facility] CPT-65839 Level 3 Est. Patient 14:45:26 CDT Edilberto tiwari DO [facility] CPT-19989 Level 3 Est. Patient 10:51:33 CDT [facility] CPT-95565 Level 3 Est. Patient 11:57:55 ASSISTANT PROFESSOR SCULPTURE Shola MCGILL [facility] CPT-66895 Level 3 Est. Patient 09:53:33 ASSISTANT PROFESSOR SCULPTURE Edilberto tiwari [facility] CPT-80254 Level 3 Est. Patient 14:42:54 ASSISTANT PROFESSOR SCULPTURE Abhinav Galvan MD [facility] CPT-62537 Level 3 Est. Patient 15:10:[address] [facility] CPT-19955 Level 3 Est. Patient 15:20:20 CDT Theo dennis MD [facility] CPT-29996 Level 2 Est. Patient 14:08:57 CDT Kalpesh goins MD [facility] CPT-56512 Level 3 Est. Patient 13:56:19 CDT Abdirahman Rios MD [facility] CPT-61079 Level 3 Est. Patient 13:59:37 CDT Abdirahman Rios MD [facility] CPT-92703 Level 2 Est. Patient 14:44:59 CDT Kalpesh goins MD [facility] CPT-92190 Level 3 Est. Patient 06:06:23 CDT Edilberto tiwari [facility] CPT-44115 Level 3 Est. Patient 15:23:54 CDT Abdirahman Rios MD [facility] CPT-09780 Level 3 Est. Patient 15:43:49 CDT Abdirahman Rios MD [facility] CPT-51460 Level 3 Est. Patient 12:46:47 ASSISTANT PROFESSOR SCULPTURE Abdirahman Rios MD [facility] CPT-42490 Level 3 Est. Patient 08:13:35 ASSISTANT PROFESSOR SCULPTURE Abdirahman Rios MD [facility] CPT-65766 Level 2 Est. Patient 09:36:42 ASSISTANT PROFESSOR SCULPTURE Abdirahman Rios MD [facility] CPT-52434 Level 3 Est. Patient 10:56:43 CDT Abdirahman Rios MD [facility] CPT-57341 Level 3 Est. Patient 18:24:52 CDT Abdirahman Rios MD [facility] CPT-86473 Level 3 Est. Patient 13:27:22 CDT Abdirahman Rios MD [facility] Procedures Code Procedure Name Date Entry Date Standard Desc ription CPT-J0696 Rocephin 1000 mg (Ceftriaxone) 17:22:33 ASSISTANT PROFESSOR SCULPTURE CPT-61479 Postop F/U Visit 18:41:07 ASSISTANT PROFESSOR SCULPTURE CPT-96742 Postop F/U Visit 08:19:08 ASSISTANT PROFESSOR SCULPTURE CPT-81733 Immunization Single Admin 16:41:53 CDT 2013 CPT-31344 Fluzone Quadrivalent Intramuscular Suspe nsion 0.5 ML 16:41:53 CDT CPT-OV Office Visit 16:39:18 CDT CPT-OV Office Visit 16:16:36 CDT CPT-OV Office Visit 15:34:48 CDT CPT-59265 Postop F/U Visit 14:50:12 CDT CPT-88037 Postop F/U Visit 14:41:10 CDT CPT-92966 Venipuncture Draw Fee 11:38:04 ASSISTANT PROFESSOR SCULPTURE CPT-56969 Postop F/U Visit 19:02:59 ASSISTANT PROFESSOR SCULPTURE CPT-65672 Postop F/U Visit 12:04:54 ASSISTANT PROFESSOR SCULPTURE CPT-14224 Administration single or combination vac cine inc oral 15:56:43 CDT CPT-48908 Influenza split virus > age 3 15:56:43 CDT CPT-15723 Hand comp min 3V 14:25:19 CDT CPT-28622 Postop F/U Visit 21:40:51 CDT CPT-71064 Postop F/U Visit 10:58:43 CDT CPT-32359 Administration single or combination vac cine inc oral 12:33:54 ASSISTANT PROFESSOR SCULPTURE CPT-23242 Influenza Preservative Free split virus >age 3 12:33:54 ASSISTANT PROFESSOR SCULPTURE CPT-23804 Administration single or combination vac cine inc oral 09:30:51 CDT CPT-86193 Influenza split virus > age 3 09:30:51 CDT CPT-00469 Postop F/U Visit 15:14:53 CDT CPT-92679 Postop F/U Visit 13:50:14 CDT CPT-59823 Postop F/U Visit 13:34:52 CDT CPT-OV Office Visit 16:55:03 CDT CPT-40511 [place] of cervix w bx ECC 13:32:50 CDT 10/19 CPT-J1885 Toradol 60 mg (Ketorolac) 15:31:59 CDT 2011 CPT-J1885 Toradol 60 mg (Ketorolac) 15:23:54 CDT 2011 CPT-04223 Visit 11:34:37 ASSISTANT PROFESSOR SCULPTURE CPT-11652 Visit 10:52:39 ASSISTANT PROFESSOR SCULPTURE CPT-02457 Visit 10:12:02 ASSISTANT PROFESSOR SCULPTURE CPT-99776 Visit 11:22:43 ASSISTANT PROFESSOR SCULPTURE CPT-75579 Visit 11:24:12 ASSISTANT PROFESSOR SCULPTURE CPT-60304 Visit 10:47:05 ASSISTANT PROFESSOR SCULPTURE CPT-OV Office Visit 10:26:16 ASSISTANT PROFESSOR SCULPTURE CPT-OV Office Visit 15:34:31 ASSISTANT PROFESSOR SCULPTURE CPT-55300 Visit 10:42:08 ASSISTANT PROFESSOR SCULPTURE CPT-35222 Visit 10:52:45 ASSISTANT PROFESSOR SCULPTURE CPT-000 Give Appropriate Flu Vaccine 16:56:41 CDT 2 CPT-02871 Administration single or combination vac [facility] 10:33:21 CDT CPT-53551 Influenza split virus > age 3 10:33:21 CDT CPT-74872 Visit 13:23:09 CDT CPT-50791 Visit 18:24:52 CDT CPT-49678 [facility] OB comp > 14 weeks 12:07:49 CDT 04/07
--- OUTSIDE RECORDS SUMMARY | 2020-01-18 17:01 | XMS REPORT | Clinical Summary ---
Author Author Admin, Jeri Rashid Organization [facility] Address Unknown Phone Unavailable Allergies, Adverse Reactions, [...] 1 po BID PRN Anxiety ALPRA ZOLAM 72962803367 Active Abdirahman Rios MD Active EMLA 2.5-2.5 % EXT CREA apply to skin lesion q 6 hours, prn LIDOCAINE-PRILOCAINE 07585848759 Active Hira Moser APRN Active CYCLOBENZAPRINE HCL 10 MG TABS 1 tablet by mouth three times daily as needed for muscle spasm/pain CYCLOBENZAPRINE HCL 69352259101 Active Abdirahman Rios MD Active PREDNISONE 20 MG TAB 2 tabs daily for 3 days, 1 t ab daily for 3 days, 1/2 tab daily for 2 days PREDNISONE 24383646505 No Longer Active Abdirahman Rios MD Active KEFLEX 500 MG CAP 1 po qid CEPHALEXIN 289570273 20 No Longer Active Kalpesh Dong MD Active PERCOCET 5-325 MG TAB 1 every 6 hours as needed OXYCODONE-ACETAMINOPHEN 06472982798 No Longer Active Shola MCGILL Active LC-5 LIDOCAINE 5 % CREA apply 1 time daily to affected area 2013 LIDOCAINE (ANORECTAL) 81475382406 No Longer Active Hira muniz APRN Active HYDROCODONE-ACETAMINOPHEN 5-325 MG TABS 2 tablets by m outh every 8 hours as needed for pain HYDROCODONE-ACETAMINOPHEN 85633567202 Acti ve Abdirahman Rios MD Active HYDROCODONE-ACETAMINOPHEN 10-325 MG TABS 1 by mouth ev chaka 8 hours as needed for pain HYDROCODONE-ACETAMINOPHEN 36783605103 No Longer Active Hira Moser APRN Active LORATADINE 10 MG TABS 1 tablet by mouth daily L ORATADINE 45406956539 No Longer Active Hira Moser APRN Active DIFLUCAN 150 MG TAB 1 qODay x 2 doses FLUCONAZO LE 84098029450 No Longer Active Hira Moser APRN Active CYCLOBENZAPRINE HCL 10 MG TABS 1/2 - 1 tab PO tid PRN back p ain, muscle spasm CYCLOBENZAPRINE HCL 06624290615 No Longer Active Karen herson Frazell [employer]ICAL STAFFING COORDINATOR Active AUGMENTIN 875-125 MG TAB 1 tab by mouth twice daily with food 20 22/05/07 AMOXICILLIN-POT CLAVULANATE 89202403752 No Longer Active Loida Rios MD Active MOBIC 15 MG TABS 1 tab daily MELOXICAM 889606023 14 No Longer Active Abdirahman Rios MD Active PERCOCET 7.5-325 MG TABS 1 PO tid PRN pain OXYCODONE-ACETAMINOPHEN 01541386982 No Longer Active Abdirahman Rios MD Active LIDODERM 5 % PTCH One patch to painful area [place] On for 12 hrs, off for 12 hrs. LIDOCAINE 35699381843 No Longer Active Abdirahman Rios MD Active PERCOCET 7.5-325 MG TABS 1 PO q 8 hrs PRN pain OXYCODONE-ACETAMINOPHEN 11825336049 No Longer Active Shola MCGILL Active HYDROCODONE-ACETAMINOPHEN 7.5-325 MG TABS 1 by mouth e very 6 hours as needed for pain HYDROCODONE-ACETAMINOPHEN 90889947053 No Longer Active Good Julian MD Active CLINDAMYCIN HCL 300 MG CAPS 1 po QID x 7 days CLINDAMYCIN HCL 75968075631 No Longer Active Abdirahman Rios MD Activ e BACTRIM DS 800-160 MG TABS 1 po BID x 7 days 5 SULFAMETHOXAZOLE-TRIMETHOPRIM 09282548108 No Longer Active Abdirahman Rios MD Active ENDOCET 10-325 MG TABS 1 q 6 hr prn OXYCODONE-ACETAMINOPHEN 35032909794 No Longer Active Abdirahman Rios MD Active IBUPROFEN 800 MG TABS 1 tid prn IBUPROFEN 513679 90515 No Longer Active Abdirahman Rios MD Active BACTRIM DS 800-160 MG TABS by mouth twice a day 11/05 SULFAMETHOXAZOLE-TRIMETHOPRIM 54641401047 No Longer Active Good Julian MD Active HYDROCODONE-ACETAMINOPHEN 7.5-325 MG TABS 1 four times a day as needed for pain HYDROCODONE-ACETAMINOPHEN 78779355429 No Longer Activ e Good Julian MD Active KEFLEX 500 MG CAP 1 tab po tid CEPHALEXIN 436179 32643 No Longer Active Hira Moser APRN Active IBUPROFEN 800 MG TAB 1 pill three times daily as needed for pain IBUPROFEN 20336630112 No Longer Active Kalpesh Dong MD Active PROMETHAZINE-CODEINE 6.25-10 MG/5ML SYRP 1 tsp every 6 hrs prn c ough PROMETHAZINE-CODEINE 99645253889 No Longer Active Kalpesh Carr Active HYDROCODONE-ACETAMINOPHEN 5-325 MG TABS 1 tab by mouth every 6 hours as needed HYDROCODONE-ACETAMINOPHEN 86131379155 No Longer Activ e Shola MCGILL Active CEPHALEXIN 500 MG CAPS 1 PO bid x 7 days CEPHAL EXIN 74165217271 No Longer Active Shola MCGILL Active BACTRIM DS 800-160 MG TAB 1 tab by mouth twice daily 2 TRIMETHOPRIM-SULFAMETHOXAZOLE 91423176454 No Longer Active Kalpesh Dong MD Active HYDROCODONE-ACETAMINOPHEN 5-325 MG TABS 1 PO tid PRN pain 5 HYDROCODONE-ACETAMINOPHEN 20419320667 No Longer Active Abhinav Galvan MD Active IMPLANON 68 MG IMPL IMPLANTED IN LEFT ARM ETONO GESTREL 32994684729 No Longer Active Hira Moser APRN Active AMOXICILLIN 500 MG TABS 2 tabs PO bid x 10 d AM OXICILLIN 77615252597 No Longer Active Kalpesh Dong MD Active LEVAQUIN 500 MG TABS 1 PO q day x 7 days LEVOFL OXACIN 42537433136 No Longer Active Shola MCGILL Active PROAIR HFA 108 (90 BASE) MCG/ACT AERS 2 puff q 4-6 hrs PRN ALBUTEROL SULFATE 43742345815 Active Edilberto Marino DO Active FIORICET 50-325-40 MG TABS 2 PO q 8 hrs PRN FOSTER [id number] Active Abdirahman Rios MD Active AMITRIPTYLINE HCL 25 MG TAB 1 tab by mouth daily 60 minutes before bedtime AMITRIPTYLINE HCL 10543042113 No Longer Active Shola MCGILL Active LORTAB 5 5-500 MG TABS 1/2 to 1 tablet by mouth go ry 6 hours as needed for pain HYDROCODONE-ACETAMINOPHEN 85009399098 No Longer Active Shola MCGILL Active CEPHALEXIN 500 MG TABS Take one by mouth four times daily, morning, noon, early evening and bedtime. CEPHALEXIN 01524127440 No Long er Active Hira Moser APRN Active TYLENOL/CODEINE #3 300-30 MG TAB 1-2 po q6hr PRN Pain ACETAMINOPHEN-CODEINE 98163673432 No Longer Active Edilberto Marino DO Active PRISTIQ 50 MG [id number] 1 po qd DESVENLAFAXI NE SUCCINATE 41152072992 No Longer Active Edilberto Marino DO Active PENICILLIN V POTASSIUM 500 MG TAB 1 four times a day 2 PENICILLIN V POTASSIUM 61756364685 No Longer Active Edilberto Marino DO Active DOXYCYCLINE HYCLATE 100 MG CAPS Take one (1) tablet by mouth twice a day DOXYCYCLINE HYCLATE 58414360626 No Longer Active Ronnie Galvan MD Active HYDROCODONE-ACETAMINOPHEN 5-325 MG TABS 1 po q 6hr PRN Pain 2011 HYDROCODONE-ACETAMINOPHEN 51763191784 No Longer Active Jerson Perez RN Active BACTRIM DS 800-160 MG TAB 1 tab by mouth twice daily 2 TRIMETHOPRIM-SULFAMETHOXAZOLE 02759155575 No Longer Active Kalpesh Dong MD Active LORTAB 5 5-500 MG TABS 1/2 to 1 tablet by mouth go ry 4 hours as needed for pain HYDROCODONE-ACETAMINOPHEN 03719252007 No Longer Active Kalpesh Dong MD Active GENERESS FE 0.8-25 MG-MCG CHEW Take one by mouth daily NORETHIN-ETH ESTRADIOL-FE 98337966616 No Longer Active Kalpesh Dong MD Active HYDROCODONE-ACETAMINOPHEN 7.5-500 MG TABS 1-2 every 4 hours as needed HYDROCODONE-ACETAMINOPHEN 40770950231 No Longer Activ e Kalpesh Dong MD Active FERROUS SULFATE 325 (65 FE) MG TABS 1 tablet by mouth twice yung y FERROUS SULFATE 08827939983 No Longer Active Kalpesh Dong MD Active IBUPROFEN 600 MG TAB 1 po q6-8hr PRN IBUPROFEN 82302877297 No Longer Active Kalpesh Dong MD Active SPIRONOLACTONE 25 MG TAB 1 tablet by mouth daily 01/22 SPIRONOLACTONE 01768180719 No Longer Active Kalpesh Dong MD Acti ve HYDROCODONE-ACETAMINOPHEN 7.5-325 MG TABS 1 po QID PRN Pain 2011 HYDROCODONE-ACETAMINOPHEN 67477796469 No Longer Active Kalpesh Dong MD Active CLINDAMYCIN HCL 300 MG CAPS 1 po q6hr x 7 days CLINDAMYCIN HCL 62423411077 No Longer Active Edilberto Marino DO Active PREDNISONE 20 MG TAB 2 tabs daily for 4 days, 1 t ab daily for 4 days, 1/2 tab daily for 4 days PREDNISONE 78128520686 No Longer Active Edilberto Marino DO Active PERCOCET 5-325 MG TABS 1 tablet by mouth every 6 hours as ne eded for pain OXYCODONE-ACETAMINOPHEN 63609647424 No Longer Active Abdirahman Rios MD Active VITAMINS TABS Take one by mouth daily MV & MIN W/FE-FA TABS 53920959004 No Longer Active Abdirahman Rios MD Active LUIS 3-0.02 MG TABS 1 tablet by mouth daily as directed DROSPIRENONE-ETHINYL ESTRADIOL 47581709179 No Longer Active Abdirahman Rios MD Active LORATADINE 10 MG TABS 1 tablet by mouth daily L ORATADINE 65842277471 No Longer Active Kalpesh Dong MD Active HYDROCODONE-ACETAMINOPHEN 5-325 MG TABS 1 po q 6hr PRN Pain 2010 HYDROCODONE-ACETAMINOPHEN 49528175026 No Longer Active Edilberto Marino DO Active BACTRIM DS 800-160 MG TAB 1 tab by mouth twice daily 2 TRIMETHOPRIM-SULFAMETHOXAZOLE 19347427257 No Longer Active Abdirahman Rios MD Active 28-0.8 MG TABS Take one by mouth daily 09/20 VIT-FE FUMARATE-FA 74897898897 No Longer Active Abdirahman Rios MD Active CIPRO 500 MG TAB 1 tablet by mouth twice daily CIPROFLOXACIN HCL 84741943188 No Longer Active Abdirahman Rios MD Active BENADRYL 25 MG CAP 1 po q8hr PRN Congestion DIPHENHYDRAMINE HCL 13945301961 No Longer Active Abdirahman Rios MD Active ZOLOFT 50 MG TAB 1 po qd SERTRALINE HCL 588219 18142 No Longer Active Abdirahman Rios MD Active AMOXICILLIN 875 MG TABS 1 tab by mouth twice daily 201 08/09/13 AMOXICILLIN 92430855477 No Longer Active Abdirahman Rios MD Activ e AMOXICILLIN 875 MG TABS 1 tab by mouth twice daily 201 07/19/27 AMOXICILLIN 98798907129 No Longer Active Abdirahman Rios MD Activ e BACTRIM DS 800-160 MG TAB 2 tab by mouth twice daily 2 TRIMETHOPRIM-SULFAMETHOXAZOLE 01908463147 No Longer Active Abdirahman Rios MD Active KEFLEX 500 MG CAP 1 po tid x 10 days CEPHALEXIN 45417436926 No Longer Active Abdirahman Rios MD Active AMOXICILLIN 875 MG TABS 1 tab by mouth twice daily 201 07/18/07 AMOXICILLIN 39919538582 No Longer Active Abdirahman Rios MD Activ e BACTRIM DS 800-160 MG TAB 2 tab by mouth twice daily 2 BACTRIM DS 800-160 MG TAB TRIMETHOPRIM-SULFAMETHOXAZOLE Inactive ZOLOFT 50 MG TAB 1 po qd ZOLOFT 50 MG TAB 3129 41 SERTRALINE HCL Inactive BENADRYL 25 MG CAP 1 po q8hr PRN Congestion BENADRYL 25 MG CAP 6512137 DIPHENHYDRAMINE HCL Inactive 28-0.8 MG TABS Take one by mouth daily 09/20 28-0.8 MG TABS VIT-FE FUMARATE-FA Inactive HYDROCODONE-ACETAMINOPHEN 5-325 MG TABS 1 po q 6hr PRN Pain 2010 HYDROCODONE-ACETAMINOPHEN 5-325 MG TABS 469324 HYDROCODONE-ACETAMINOPHEN Inactive LORATADINE 10 MG TABS 1 tablet by mouth daily LORATADINE 10 MG TABS 502874 LORATADINE Inactive LUIS 3-0.02 MG TABS 1 tablet by mouth daily as directed LUIS 3-0.02 MG TABS DROSPIRENONE-ETHINYL ESTRADIOL Inactive VITAMINS TABS Take one by mouth daily VITAMINS TABS MV & MIN W/FE-FA TABS Inactive PERCOCET 5-325 MG TABS 1 tablet by mouth every 6 hours as ne eded for pain PERCOCET 5-325 MG TABS 5605763 OXYCODONE-ACETAMIN OPHEN Inactive PREDNISONE 20 MG TAB 2 tabs daily for 4 days, 1 t ab daily for 4 days, 1/2 tab daily for 4 days PREDNISONE 20 MG TAB 220794 PREDNISON E Inactive CLINDAMYCIN HCL 300 MG CAPS 1 po q6hr x 7 days CLINDAMYCIN HCL 300 MG CAPS 536073 CLINDAMYCIN HCL Inactive HYDROCODONE-ACETAMINOPHEN 7.5-325 MG TABS 1 po QID PRN Pain 2011 HYDROCODONE-ACETAMINOPHEN 7.5-325 MG TABS 912891 HYDROCODONE-ACETAMINOPHEN Inactive SPIRONOLACTONE 25 MG TAB 1 tablet by mouth daily 01/22 SPIRONOLACTONE 25 MG TAB 223559 SPIRONOLACTONE Inactive IBUPROFEN 600 MG TAB 1 po q6-8hr PRN IBUPROFEN 600 MG TAB 824762 IBUPROFEN Inactive FERROUS SULFATE 325 (65 FE) MG TABS 1 tablet by mouth twice yung y FERROUS SULFATE 325 (65 FE) MG TABS 378151 FERROUS SULF ATE Inactive HYDROCODONE-ACETAMINOPHEN 7.5-500 MG [...] PRN Pain 2011 HYDROCODONE-ACETAMINOPHEN 5-325 MG TABS 960565 HYDROCODONE-ACETAMINOPHEN Inactive DOXYCYCLINE HYCLATE 100 MG CAPS Take one (1) tablet by mouth twice a day DOXYCYCLINE HYCLATE 100 MG CAPS 599630 DOXYCYCLINE HYCLATE Inactive PENICILLIN V POTASSIUM 500 MG TAB 1 four times a day 2 PENICILLIN V POTASSIUM 500 MG TAB 346524 PENICILLIN V POTASSIUM [facility] PRISTIQ 50 MG [id number] 1 po qd PRISTIQ 50 MG [id number] DESVENLAFAXINE SUCCINATE Inactive TYLENOL/CODEINE #3 300-30 MG TAB 1-2 po q6hr PRN Pain TYLENOL/CODEINE #3 300-30 MG TAB 869003 ACETAMINOPHEN-CODEINE Inact krishna CEPHALEXIN 500 MG TABS Take one by mouth four times daily, morning, noon, early evening and bedtime. CEPHALEXIN 500 MG TABS 289184 CEPHALEXIN Inactive LORTAB 5 5-500 MG TABS 1/2 to 1 tablet by mouth go ry 6 hours as needed for pain LORTAB 5 5-500 MG TABS HYDROCODONE-A CETAMINOPHEN Inactive AMITRIPTYLINE HCL 25 MG TAB 1 tab by mouth daily 60 minutes before bedtime AMITRIPTYLINE HCL 25 MG TAB 254792 AMITRIPTYLINE HCL Inactive AMOXICILLIN 500 MG TABS 2 tabs PO bid x 10 d 7 AMOXICILLIN 500 MG TABS 185575 AMOXICILLIN Inactive IMPLANON 68 MG IMPL IMPLANTED IN LEFT ARM IMPLANON 68 MG IMPL ETONOGESTREL Inactive HYDROCODONE-ACETAMINOPHEN 5-325 MG TABS 1 PO tid PRN pain 5 HYDROCODONE-ACETAMINOPHEN 5-325 MG TABS 005315 HYDROCODONE-ACETAMIN OPHEN Inactive BACTRIM DS 800-160 MG TAB 1 tab by mouth twice daily 2 BACTRIM DS 800-160 MG TAB TRIMETHOPRIM-SULFAMETHOXAZOLE Inac tive CEPHALEXIN 500 MG CAPS 1 PO bid x 7 days CEPHALEXIN 500 MG CAPS 343222 CEPHALEXIN Inactive HYDROCODONE-ACETAMINOPHEN 5-325 MG TABS 1 tab by mouth every 6 hours as needed HYDROCODONE-ACETAMINOPHEN 5-325 MG TABS 694660 HYDROCODONE-ACETAMINOPHEN Inactive PROMETHAZINE-CODEINE 6.25-10 MG/5ML SYRP 1 tsp every 6 hrs prn c ough PROMETHAZINE-CODEINE 6.25-10 MG/5ML SYRP 769035 PROMETH AZINE-CODEINE Inactive IBUPROFEN 800 MG TAB 1 pill three times daily as needed for pain IBUPROFEN 800 MG TAB IBUPROFEN Inactive KEFLEX 500 MG CAP 1 tab po tid KEFLEX 500 MG CAP 088518 CEPHALEXIN Inactive HYDROCODONE-ACETAMINOPHEN 7.5-325 MG TABS 1 four times a day as needed for pain HYDROCODONE-ACETAMINOPHEN 7.5-325 MG TABS 574723 HYDROCODONE-ACETAMINOPHEN Inactive BACTRIM DS 800-160 MG TABS by mouth twice a day 11/05 BACTRIM DS 800-160 MG TABS SULFAMETHOXAZOLE-TRIMETHOPRIM Inactive IBUPROFEN 800 MG TABS 1 tid prn IBUPROFEN 800 MG TABS 081568 IBUPROFEN Inactive ENDOCET 10-325 MG TABS 1 q 6 hr prn ENDOC ET 10-325 MG TABS 5063761 OXYCODONE-ACETAMINOPHEN Inactive HYDROCODONE-ACETAMINOPHEN 7.5-325 MG TABS 1 by mouth e very 6 hours as needed for pain HYDROCODONE-ACETAMINOPHEN 7.5-325 MG TABS 780816 HYDROCODONE-ACETAMINOPHEN Inactive PERCOCET 7.5-325 MG TABS 1 PO q 8 hrs PRN pain PERCOCET 7.5-325 MG TABS 3928732 OXYCODONE-ACETAMINOPHEN Inactive LIDODERM 5 % PTCH One patch to painful area [place]. On for 12 hrs, off for 12 hrs. LIDODERM 5 % PTCH 7403028 LIDOCAINE Inactiv e PERCOCET 7.5-325 MG TABS 1 PO tid PRN pain PERCOCET 7.5- 325 MG TABS 8996511 OXYCODONE-ACETAMINOPHEN Inactive MOBIC 15 MG TABS 1 tab daily MOBIC 15 MG TABS 15 2695 MELOXICAM Inactive CYCLOBENZAPRINE HCL 10 MG TABS 1/2 - 1 tab PO tid PRN back p ain, muscle spasm CYCLOBENZAPRINE HCL 10 MG TABS 255214 CYCLOBENZA JOSEPH HCL Inactive LORATADINE 10 MG TABS 1 tablet by mouth daily LORATADINE 10 MG TABS 492576 LORATADINE Inactive HYDROCODONE-ACETAMINOPHEN 10-325 MG TABS 1 by mouth ev chaka 8 hours as needed for pain HYDROCODONE-ACETAMINOPHEN 10-325 MG TABS 116266 HYDROCODONE-ACETAMINOPHEN Inactive LC-5 LIDOCAINE 5 % CREA apply 1 time daily to affected area 2013 LC-5 LIDOCAINE 5 % CREA LIDOCAINE (ANORECTAL) In active PERCOCET 5-325 MG TAB 1 every 6 hours as needed PERCOCET 5-325 MG TAB 4036453 OXYCODONE-ACETAMINOPHEN Inactive KEFLEX 500 MG CAP 1 po qid KEFLEX 500 MG CAP 30 9114 CEPHALEXIN Inactive AMOXICILLIN 875 MG TABS 1 tab by mouth twice daily 201 07/18/07 AMOXICILLIN 875 MG TABS 697879 AMOXICILLIN Inactive KEFLEX 500 MG CAP 1 po tid x 10 days KEFLEX 500 MG CAP 820495 CEPHALEXIN Inactive AMOXICILLIN 875 MG TABS 1 tab by mouth twice daily 201 07/19/27 AMOXICILLIN 875 MG TABS 563922 AMOXICILLIN Inactive AMOXICILLIN 875 MG TABS 1 tab by mouth twice daily 201 08/09/13 AMOXICILLIN 875 MG TABS 694228 AMOXICILLIN Inactive CIPRO 500 MG TAB 1 tablet by mouth twice daily CIPRO 500 MG TAB 990070 CIPROFLOXACIN HCL Inactive BACTRIM DS 800-160 MG TAB 1 tab by mouth twice daily 2 BACTRIM DS 800-160 MG TAB TRIMETHOPRIM-SULFAMETHOXAZOLE Inac tive LEVAQUIN 500 MG TABS 1 PO q day x 7 days LEVAQUIN 500 MG TABS 393793 LEVOFLOXACIN Inactive CLINDAMYCIN HCL 300 MG CAPS 1 po QID x 7 days CLINDAMYCIN HCL 300 MG CAPS 557791 CLINDAMYCIN HCL Inactive AUGMENTIN 875-125 MG TAB 1 tab by mouth twice daily with food 20 22/05/07 AUGMENTIN 875-125 MG TAB 547291 AMOXICILLIN-POT CLAVULA [place] Inactive DIFLUCAN 150 MG TAB 1 qODay x 2 doses DIFLUCAN 150 MG TAB 029102 FLUCONAZOLE Inactive PREDNISONE 20 MG TAB 2 tabs daily for 3 days, 1 t ab daily for 3 days, 1/2 tab daily for 2 days PREDNISONE 20 MG TAB 517283 PREDNISON E Inactive Advance Directives Directive Description Start Date PERMISSION TO SHARE Immunizations Vaccine Administration Date Value Standard Alf cription Seasonal influenza vaccine, injectable, containing preservative, for > 3 years old (Afluria, FluLaval, Fluzone, Fluvirin, Fluarix, Agriflu(>= 18 yo)) Fluzone (>3 yrs.) [[id number]] Influenza, seasonal, inject able Seasonal influenza vaccine, injectable, preservative free, for > 3 years old (Afluria, FluLaval, Fluzone, Fluvirin, Fluarix, Agriflu(>= 18 yo)) Fluzone preservative free (>3 yrs.) [[id number]] Influenza, seasonal, injectable, preservative free Seasonal influenza vaccine, injectable, containing preservative, for > 3 years old (Afluria, FluLaval, Fluzone, Fluvirin, Fluarix, Agriflu(>= 18 yo)) Fluzone (>3 yrs.) [[id number]] Influenza, seasonal, inject able Seasonal influenza vaccine, injectable, containing preservative, for > 3 years old (Afluria, FluLaval, Fluzone, Fluvirin, Fluarix, Agriflu(>= 18 yo)) Fluzone (>3 yrs.) [[id number]] Influenza, seasonal, inject able dT (Diphtheria and [...] mg/dL Encounters Code Encounter Date Provider Facility CPT-73569 Level 3 New Patient 15:47:11 BUILDING RIGGER Bj huber MD [facility] CPT-38409 Level 4 Est. Patient 14:37:38 BUILDING RIGGER Abdirahman Rios MD [facility] CPT-98905 Level 2 Est. Patient 13:32:17 BUILDING RIGGER Kalpesh goins MD [facility] CPT-18849 Level 3 Est. Patient 17:32:57 BUILDING RIGGER Edilberto tiwari [facility] CPT-28704 Level 3 Est. Patient 17:22:33 BUILDING RIGGER Edilberto tiwari [facility] CPT-45280 Level 2 Est. Patient 16:57:09 BUILDING RIGGER Kalpesh goins MD [facility] CPT-72139 Level 3 Est. Patient 14:03:08 BUILDING RIGGER Abdirahman Rios MD [facility] CPT-07798 Level 3 Est. Patient 18:12:34 CDT Shola Wright [facility] CPT-31238 Level 3 Est. Patient 19:34:46 CDT Shola Wright [facility] CPT-49163 Level 3 Est. Patient 14:19:37 CDT Abdirahman Rios MD [facility] CPT-72472 Level 3 Est. Patient 14:11:58 CDT Kalpesh goins MD [facility] CPT-93642 Level 3 Est. Patient 16:50:00 CDT Michelle MERCADO [facility] CPT-01163 Level 3 Est. Patient 17:11:32 BUILDING RIGGER Brandie bates MD PhD [facility] CPT-53629 Level 3 Est. Patient 16:31:47 BUILDING RIGGER Shola Wright [facility] CPT-22685 Level 3 Est. Patient 17:51:10 BUILDING RIGGER Abhinav Galvan MD [facility] CPT-38230 Level 4 Est. Patient 12:54:56 BUILDING RIGGER Kalpesh goins MD [facility]-50183 Level 4 Est. Patient 12:53:56 BUILDING RIGGER Kalpesh goins MD [facility] CPT-08104 Level 3 Est. Patient 17:56:58 CDT Shola Wright [facility] CPT-34213 Level 3 Est. Patient 14:26:20 CDT Janak butcher [facility] CPT-32990 Level 3 Est. Patient 09:38:41 CDT Shola Thao Adriana [facility] CPT-51270 Level 3 Est. Patient 14:45:26 CDT Edilberto tiwari [facility] CPT-06768 Level 3 Est. Patient 10:51:33 CD[facility] Level 3 Est. Patient 11:57:55 BUILDING RIGGER Shola Thao Adriana [facility] CPT-81070 Level 3 Est. Patient 09:53:33 BUILDING RIGGER Edilberto tiwari [facility] CPT-32834 Level 3 Est. Patient 14:42:54 BUILDING RIGGER Abhinav Galvan MD [facility] CPT-20925 Level 3 Est. Patient 15:10:02 CDT Janak butcher [facility] CPT-21233 Level 3 Est. Patient 15:20:20 CDT Theo dennis MD [facility] CPT-99151 Level 2 Est. Patient 14:08:57 CDT Kalpesh goins MD [facility]-14221 Level 3 Est. Patient 13:56:19 CDT Abdirahman Rios MD [facility] CPT-23777 Level 3 Est. Patient 13:59:37 CDT Abdirahman Rios MD [facility] CPT-20572 Level 2 Est. Patient 14:44:59 CDT Kalpesh goins MD [facility] CPT-95830 Level 3 Est. Patient 06:06:23 CDT Edilberto tiwari DO [facility] CPT-05320 Level 3 Est. Patient 15:23:54 CDT Abdirahman Rios MD [facility] CPT-50591 Level 3 Est. Patient 15:43:49 CDT Abdirahman Rios MD [facility] CPT-49182 Level 3 Est. Patient 12:46:47 BUILDING RIGGER Abdirahman Rios MD [facility] CPT-93916 Level 3 Est. Patient 08:13:35 BUILDING RIGGER Abdirahman Rios MD [facility] CPT-51865 Level 2 Est. Patient 09:36:42 BUILDING RIGGER Abdirahman Rios MD [facility] CPT-82283 Level 3 Est. Patient 10:56:43 CDT Abdirahman Rios MD [facility] CPT-60126 Level 3 Est. Patient 18:24:52 CDT Abdirahman Rios MD [facility] CPT-00308 Level 3 Est. Patient 13:27:22 CDT Abdirahman Rios MD [facility] Procedures Code Procedure Name Date Entry Date Standard Desc ription CPT-53475 Postop F/U Visit 11:29:00 BUILDING RIGGER CPT-J0696 Rocephin 1000 mg (Ceftriaxone) 17:22:33 BUILDING RIGGER CPT-45397 Postop F/U Visit 18:41:07 BUILDING RIGGER CPT-75092 Postop F/U Visit 08:19:08 BUILDING RIGGER CPT-90104 Immunization Single Admin 16:41:53 CDT 2013 CPT-75995 Fluzone Quadrivalent Intramuscular Suspe nsion 0.5 ML 16:41:53 CDT CPT-OV Office Visit 16:39:18 CDT CPT-OV Office Visit 16:16:36 CDT CPT-OV Office Visit 15:34:48 CDT CPT-66471 Postop F/U Visit 14:50:12 CDT CPT-51465 Postop F/U Visit 14:41:10 CDT CPT-92005 Venipuncture Draw Fee 11:38:04 BUILDING RIGGER CPT-92110 Postop F/U Visit 19:02:59 BUILDING RIGGER CPT-51472 Postop F/U Visit 12:04:54 BUILDING RIGGER CPT-81879 Administration single or combination vac cine inc oral 15:56:43 CDT CPT-03995 Influenza split virus > age 3 15:56:43 CDT CPT-27893 Hand comp min 3V 14:25:19 CDT CPT-26312 Postop F/U Visit 21:40:51 CDT CPT-09251 Postop F/U Visit 10:58:43 CDT CPT-38121 Administration single or combination vac cine inc oral 12:33:54 BUILDING RIGGER CPT-86265 Influenza Preservative Free split virus >age 3 12:33:54 BUILDING RIGGER CPT-38527 Administration single or combination vac cine inc oral 09:30:51 CDT CPT-51474 Influenza split virus > age 3 09:30:51 CDT CPT-19797 Postop F/U Visit 15:14:53 CDT CPT-48427 Postop F/U Visit 13:50:14 CDT CPT-54462 Postop F/U Visit 13:34:52 CDT CPT-OV Office Visit 16:55:03 CDT CPT-86751 [place] of cervix w bx ECC 13:32:50 CDT 10/19 CPT-J1885 Toradol 60 mg (Ketorolac) 15:31:59 CDT 2011 CPT-J1885 Toradol 60 mg (Ketorolac) 15:23:54 CDT 2011 CPT-08824 Visit 11:34:37 [employer]ILDING [employer]IG[employer] CPT-52141 Visit 10:52:39 BUILDING RIGGER CPT-62213 Visit 10:12:02 BUILDING RIGGER CPT-85424 Visit 11:22:43 BUILDING RIGGER CPT-74311 Visit 11:24:12 BUILDING RIGGER CPT-97426 Visit 10:47:05 BUILDING RIGGER CPT-OV Office Visit 10:26:16 BUILDING RIGGER CPT-OV Office Visit 15:34:31 BUILDING RIGGER CPT-34900 Visit 10:42:08 BUILDING RIGGER CPT-06011 Visit 10:52:45 BUILDING RIGGER CPT-000 Give Appropriate Flu Vaccine 16:56:41 CDT 2 CPT-75443 Administration single or combination vac cine inc oral 10:33:21 CDT CPT-45368 Influenza split virus > age 3 10:33:21 CDT CPT-56297 Visit 13:23:09 CDT CPT-28943 Visit 18:24:52 CDT CPT-80901 Sono OB comp > 14 weeks 12:07:49 CDT 04/07
--- OUTSIDE RECORDS SUMMARY | 2020-01-18 17:01 | XMS REPORT ---
Author Author [facility] Medic al Staff, TOMY Rashid Organization [facility] Address [address], [place] [id number] Phone [phone] Care Team Providers Care Team Primary Care Physician Name Role Phone CAROLEE WHITE MD PP [phone] CAROLEE WHITE MD PP [phone] Summary purpose TRANSITION OF CARE AUTO GENERATION Chief Complaint and Reason for Visit Admit Diagnosis 1 HIDRADENITIS Admit Diagnosis 2 THIGH, APRIL BREAST Problem [...] Code Type Description Date Performed Performing Physician 86.11 ICD9-CM SKIN & SUBCU CLOSED BX 08-20-2014 70665 CPT-4 BIOPSY, SKIN LESION 08-20-2014 CATY GARZA 94061 CPT-4 BIOPSY, SKIN ADD-ON 08-20-2014 CATY GARZA 23743 CPT-4 BIOPSY, SKIN ADD-ON 08-20-2014 CATY GARZA 31892 CPT-4 BIOPSY, SKIN ADD-ON 08-20-2014 CATY GARZA 32566 CPT-4 BIOPSY, SKIN ADD-ON 08-20-2014 CATY GARZA 06060 CPT-4 BIOPSY, SKIN ADD-ON 08-20-2014 CATY GARZA J7050 CPT-4 NORMAL SALINE SOLUTION INFUS 08-20-2014 CATY GARZA J3370 CPT-4 VANCOMYCIN HCL INJECTION 08-20-2014 Margo LG GARZA J7120 CPT-4 RINGERS LACTATE INFUSION 08-20-2014 Margo LG GARZA C9290 CPT-4 INJ, BUPIVICAINE LIPOSOME 08-20-2014 CATY GARZA J2250 CPT-4 INJ MIDAZOLAM HYDROCHLORIDE 08-20-2014 CATY GARZA J3010 CPT-4 FENTANYL CITRATE INJECITON 08-20-2014 CATY GARZA J2704 CPT-4 INJ, PROPOFOL, 10 MG 08-20-2014 CATY GARZA J2405 CPT-4 ONDANSETRON HCL INJECTION 08-20-2014 CATY GARZA J2270 CPT-4 MORPHINE SULFATE INJECTION 08-20-2014 CATY GARZA 62230 CPT-4 SPECIAL SUPPLIES 08-20-2014 CATY DEL VALLE 47463 CPT-4 SPECIAL SUPPLIES 08-20-2014 CATY DEL VALLE 28149 CPT-4 SPECIAL SUPPLIES 08-20-2014 CATY COA ELIGIO 22958 CPT-4 SPECIAL SUPPLIES 08-20-2014 CATY DEL VALLE Functional status Functional Status Finding Observation Time Hearing Prob Loc none [id number] Vision Problems yes 67-03-446822:39 Vision Correct Dev glasses 29-44-843249:39 Ambulation Asst Dev none 49-27-407059:39 Range of Motion full 47-98-898623:05 Muscle Strength RUE 5 ROM full resist :05 Muscle Strength RLE 5 ROM full resist 83-02-686379:05 Muscle Strength LUE 5 ROM full resist :05 Muscle Strength LLE 5 ROM full resist 42-21-802419:05 Transfers other (specify) Comment: via cart 06-97-585960:05 Ambulation none Comment: immediate return from the rr 41-03-549150:05 Balance steady 84-74-291530:03 Bathing Assistance none 51-08-976848:39 Eating Assistance none 45-81-069998:39 Dressing Assistance none 12-41-009076:39 Toileting Assistance none 50-36-216307:39 Transfer Assistance none 21-47-324945:39 Decline Slf Care/Mob no 30-11-886904:39 Phys Cond Stable yes 50-70-318237:39 Nutrition normal 09-24-437979:05 Diet NPO :05 Oral Cavity moist and intact :05 Teeth none :05 Dental Hygiene poor 97-47-929615:05 Abdomen Appearance obese :05 Abdomen soft :05 [...] Start Attmpt 7 times Comment: attempts by Ayaka Cohen, and Alisa Morgan, RN :55 IV Site Isael 20 :50 IV Site [...] appt w/ 08/27/14 at 1520 at the [facility]. Pt's aware to contact the dr or the er with any concerns. Pt left ambulatory in good condition accompanied out by myself. Her significant other is to take her home. 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
--- OUTSIDE RECORDS SUMMARY | 2020-01-18 17:02 | XMS REPORT ---
Author Author Jeri SHAVER Organization [employer] Address Unknown Phone Unavailable Care Team Providers Care Supervisor [employer] Name Role Phone MARY SHAVER Unavailable Allergies No Known Allergies Problems Problem Type Condition Code Onset Dates Condition Statu s Problem Pain at surgical incision R20.8 Ac tive Problem Encounter for immunization Z23 A ctive Medications Medication Code System Code Instructions Start Date End Date Status Dosage [place] [facility] [id number] 250 UNIT/GM Externally Once a day Apr 13, 2016 1 application to affected area Results No Known Results Summary Purpose [employer] Submission
--- OUTSIDE RECORDS SUMMARY | 2020-01-18 17:02 | XMS REPORT | Clinical Summary ---
Author Author Admin, Jeri Rashid Organization [facility] Address Unknown Phone Unavailable Allergies, Adverse [...] 1 every 4 hours as needed OXYCODONE-ACETAMINOPHEN 12489064195 Active Kalpesh Dong MD Active PROAIR HFA 108 (90 BASE) MCG/ACT AERS 2 puff q 4-6 hrs PRN 01/24 ALBUTEROL SULFATE 55646122776 No Longer Active Kalpesh Dong MD Active ALPRAZOLAM 0.5 MG TABS 1 po BID PRN Anxiety ALPRA ZOLAM 30840945083 Active Abdirahman Rios MD Active EMLA 2.5-2.5 % EXT CREA apply to skin lesion q 6 hours, prn LIDOCAINE-PRILOCAINE 00597719708 Active Hira Moser APRN Active CYCLOBENZAPRINE HCL 10 MG TABS 1 tablet by mouth three times daily as needed for muscle spasm/pain CYCLOBENZAPRINE HCL 91461460537 Active Abdirahman Rios MD Active PREDNISONE 20 MG TAB 2 tabs daily for 3 days, 1 t ab daily for 3 days, 1/2 tab daily for 2 days PREDNISONE 69915969398 No Longer Active Abdirahman Rios MD Active KEFLEX 500 MG CAP 1 po qid CEPHALEXIN 489774113 20 No Longer Active Kalpesh Dong MD Active PERCOCET 5-325 MG TAB 1 every 6 hours as needed OXYCODONE-ACETAMINOPHEN 13634899601 No Longer Active Shola MCGILL Active LC-5 LIDOCAINE 5 % CREA apply 1 time daily to affected area 2013 LIDOCAINE (ANORECTAL) 01900316060 No Longer Active Hira muniz APRN Active HYDROCODONE-ACETAMINOPHEN 5-325 MG TABS 2 tablets by m outh every 8 hours as needed for pain HYDROCODONE-ACETAMINOPHEN 01060968534 Acti ve Abdirahman Rios MD Active HYDROCODONE-ACETAMINOPHEN 10-325 MG TABS 1 by mouth ev chaka 8 hours as needed for pain HYDROCODONE-ACETAMINOPHEN 47419243589 No Longer Active Hria Moser APRN Active LORATADINE 10 MG TABS 1 tablet by mouth daily L ORATADINE 46458219904 No Longer Active Hira Moser APRN Active DIFLUCAN 150 MG TAB 1 qODay x 2 doses FLUCONAZO LE 56765132180 No Longer Active Jillina Joyzell [employer]IST Active CYCLOBENZAPRINE HCL 10 MG TABS 1/2 - 1 tab PO tid PRN back p ain, muscle spasm CYCLOBENZAPRINE HCL 04879118717 No Longer Active Karen herson Frazell [employer]PLICATION[employer] SPECIALIST Active AUGMENTIN 875-125 MG TAB 1 tab by mouth twice daily with food 20 22/05/07 AMOXICILLIN-POT CLAVULANATE 80759225051 No Longer Active Loida Rios MD Active MOBIC 15 MG TABS 1 tab daily MELOXICAM 567908193 14 No Longer Active Abdirahman Rios MD Active PERCOCET 7.5-325 MG TABS 1 PO tid PRN pain OXYCODONE-ACETAMINOPHEN 16569657584 No Longer Active Abdirahman Rios MD Active LIDODERM 5 % PTCH One patch to painful area RI N. On for 12 hrs, off for 12 hrs. LIDOCAINE 57625225129 No Longer Active Abdirahman Rios MD Active PERCOCET 7.5-325 MG TABS 1 PO q 8 hrs PRN pain OXYCODONE-ACETAMINOPHEN 20271631718 No Longer Active Shola MCGILL Active HYDROCODONE-ACETAMINOPHEN 7.5-325 MG TABS 1 by mouth e very 6 hours as needed for pain HYDROCODONE-ACETAMINOPHEN 22552161518 No Longer Active Good Julian MD Active CLINDAMYCIN HCL 300 MG CAPS 1 po QID x 7 days CLINDAMYCIN HCL 50177460263 No Longer Active Abdirahman Rios MD Activ e BACTRIM DS 800-160 MG TABS 1 po BID x 7 days 5 SULFAMETHOXAZOLE-TRIMETHOPRIM 40286694325 No Longer Active Abdirahman Rios MD Active ENDOCET 10-325 MG TABS 1 q 6 hr prn OXYCODONE-ACETAMINOPHEN 51909497037 No Longer Active Abdirahman Rios MD Active IBUPROFEN 800 MG TABS 1 tid prn IBUPROFEN 468841 75448 No Longer Active Abdirahman Rios MD Active BACTRIM DS 800-160 MG TABS by mouth twice a day 11/05 SULFAMETHOXAZOLE-TRIMETHOPRIM 63003974973 No Longer Active Good Julian MD Active HYDROCODONE-ACETAMINOPHEN 7.5-325 MG TABS 1 four times a day as needed for pain HYDROCODONE-ACETAMINOPHEN 02242335130 No Longer Activ e Good Julian MD Active KEFLEX 500 MG CAP 1 tab po tid CEPHALEXIN 711088 91490 No Longer Active Matthewllina Shanti RIVAS Active IBUPROFEN 800 MG TAB 1 pill three times daily as needed for pain IBUPROFEN 72922192963 No Longer Active Kalpesh Dong MD Active PROMETHAZINE-CODEINE 6.25-10 MG/5ML SYRP 1 tsp every 6 hrs prn c ough PROMETHAZINE-CODEINE 21147910681 No Longer Active Kalpesh Carr Active HYDROCODONE-ACETAMINOPHEN 5-325 MG TABS 1 tab by mouth every 6 hours as needed HYDROCODONE-ACETAMINOPHEN 00047190010 No Longer Activ e Shola MCGILL Active CEPHALEXIN 500 MG CAPS 1 PO bid x 7 days CEPHAL EXIN 30629646308 No Longer Active Shola MCGILL Active BACTRIM DS 800-160 MG TAB 1 tab by mouth twice daily 2 TRIMETHOPRIM-SULFAMETHOXAZOLE 08839659995 No Longer Active Kalpesh Dong MD Active HYDROCODONE-ACETAMINOPHEN 5-325 MG TABS 1 PO tid PRN pain 5 HYDROCODONE-ACETAMINOPHEN 21973270863 No Longer Active Abhinav Galvan MD Active IMPLANON 68 MG IMPL IMPLANTED IN LEFT ARM ETONO GESTREL 31660649484 No Longer Active Jillina Shanti ANDRADEN Active AMOXICILLIN 500 MG TABS 2 tabs PO bid x 10 d AM OXICILLIN 77631657951 No Longer Active Kalpesh Dong MD Active LEVAQUIN 500 MG TABS 1 PO q day x 7 days LEVOFL OXACIN 97507139507 No Longer Active Shola MCGILL Active FIORICET 50-325-40 MG TABS 2 PO q 8 hrs PRN FOSTER [id number] Active Abdirahman Rios MD Active AMITRIPTYLINE HCL 25 MG TAB 1 tab by mouth daily 60 minutes before bedtime AMITRIPTYLINE HCL 62599477221 No Longer Active Shola MCGILL Active LORTAB 5 5-500 MG TABS 1/2 to 1 tablet by mouth go ry 6 hours as needed for pain HYDROCODONE-ACETAMINOPHEN 06613392704 No Longer Active Shola MCGILL Active CEPHALEXIN 500 MG TABS Take one by mouth four times daily, morning, noon, early evening and bedtime. CEPHALEXIN 97829902867 No Long er Active Hira Moser APRN Active TYLENOL/CODEINE #3 300-30 MG TAB 1-2 po q6hr PRN Pain ACETAMINOPHEN-CODEINE 76729531614 No Longer Active Edilberto Marino DO Active PRISTIQ 50 MG [id number] 1 po qd DESVENLAFAXI NE SUCCINATE 60354431311 No Longer Active Edilberto Marino DO Active PENICILLIN V POTASSIUM 500 MG TAB 1 four times a day 2 PENICILLIN V POTASSIUM 34403551135 No Longer Active Edilberto Marino DO Active DOXYCYCLINE HYCLATE 100 MG CAPS Take one (1) tablet by mouth twice a day DOXYCYCLINE HYCLATE 02305586171 No Longer Active Ronnie Galvan MD Active HYDROCODONE-ACETAMINOPHEN 5-325 MG TABS 1 po q 6hr PRN Pain 2011 HYDROCODONE-ACETAMINOPHEN 40994314672 No Longer Active Patri joan Lock RN Active BACTRIM DS 800-160 MG TAB 1 tab by mouth twice daily 2 TRIMETHOPRIM-SULFAMETHOXAZOLE 60913673195 No Longer Active Kalpesh Dong MD Active LORTAB 5 5-500 MG TABS 1/2 to 1 tablet by mouth go ry 4 hours as needed for pain HYDROCODONE-ACETAMINOPHEN 88746049108 No Longer Active Kalpesh Dong MD Active GENERESS FE 0.8-25 MG-MCG CHEW Take one by mouth daily NORETHIN-ETH ESTRADIOL-FE 58714547162 No Longer Active Kalpesh Dong MD Active HYDROCODONE-ACETAMINOPHEN 7.5-500 MG TABS 1-2 every 4 hours as needed HYDROCODONE-ACETAMINOPHEN 74364787515 No Longer Activ e Kalpesh Dong MD Active FERROUS SULFATE 325 (65 FE) MG TABS 1 tablet by mouth twice yung y FERROUS SULFATE 77315900205 No Longer Active Kalpesh Dong MD Active IBUPROFEN 600 MG TAB 1 po q6-8hr PRN IBUPROFEN 97143116632 No Longer Active Kalpesh Dong MD Active SPIRONOLACTONE 25 MG TAB 1 tablet by mouth daily 01/22 SPIRONOLACTONE 00818193226 No Longer Active Kalpesh Dong MD Acti ve HYDROCODONE-ACETAMINOPHEN 7.5-325 MG TABS 1 po QID PRN Pain 2011 HYDROCODONE-ACETAMINOPHEN 93257363629 No Longer Active Kalpesh Dong MD Active CLINDAMYCIN HCL 300 MG CAPS 1 po q6hr x 7 days CLINDAMYCIN HCL 39316243813 No Longer Active Edilberto Marino DO Active PREDNISONE 20 MG TAB 2 tabs daily for 4 days, 1 t ab daily for 4 days, 1/2 tab daily for 4 days PREDNISONE 49080771225 No Longer Active Edilberto Marino DO Active PERCOCET 5-325 MG TABS 1 tablet by mouth every 6 hours as ne eded for pain OXYCODONE-ACETAMINOPHEN 90681468547 No Longer Active Abdirahman Rios MD Active VITAMINS TABS Take one by mouth daily MV & MIN W/FE-FA TABS 15118153096 No Longer Active Abdirahman Rios MD Active LUIS 3-0.02 MG TABS 1 tablet by mouth daily as directed DROSPIRENONE-ETHINYL ESTRADIOL 12465283543 No Longer Active Abdirahman Rios MD Active LORATADINE 10 MG TABS 1 tablet by mouth daily L ORATADINE 88038878757 No Longer Active Kalpesh Dong MD Active HYDROCODONE-ACETAMINOPHEN 5-325 MG TABS 1 po q 6hr PRN Pain 2010 HYDROCODONE-ACETAMINOPHEN 56442296380 No Longer Active Edilberto Marino DO Active BACTRIM DS 800-160 MG TAB 1 tab by mouth twice daily 2 TRIMETHOPRIM-SULFAMETHOXAZOLE 78984963822 No Longer Active Abdirahman Rios MD Active 28-0.8 MG TABS Take one by mouth daily 09/20 VIT-FE FUMARATE-FA 65537291639 No Longer Active Abdirahman Rios MD Active CIPRO 500 MG TAB 1 tablet by mouth twice daily CIPROFLOXACIN HCL 25059450582 No Longer Active Abdirahman Rios MD Active BENADRYL 25 MG CAP 1 po q8hr PRN Congestion DIPHENHYDRAMINE HCL 06676637920 No Longer Active Abdirahman Rios MD Active ZOLOFT 50 MG TAB 1 po qd SERTRALINE HCL 815459 35792 No Longer Active Abdirahman Rios MD Active AMOXICILLIN 875 MG TABS 1 tab by mouth twice daily 201 08/09/13 AMOXICILLIN 77718258001 No Longer Active Abdirahman Rios MD Activ e AMOXICILLIN 875 MG TABS 1 tab by mouth twice daily 201 07/19/27 AMOXICILLIN 64060980733 No Longer Active Abdirahman Rios MD Activ e BACTRIM DS 800-160 MG TAB 2 tab by mouth twice daily 2 TRIMETHOPRIM-SULFAMETHOXAZOLE 45520719225 No Longer Active Abdirahman Rios MD Active KEFLEX 500 MG CAP 1 po tid x 10 days CEPHALEXIN 12614924618 No Longer Active Abdirahman Rios MD Active AMOXICILLIN 875 MG TABS 1 tab by mouth twice daily 201 07/18/07 AMOXICILLIN 70897620006 No Longer Active Abdirahman Rios MD Activ e BACTRIM DS 800-160 MG TAB 2 tab by mouth twice daily 2 BACTRIM DS 800-160 MG TAB TRIMETHOPRIM-SULFAMETHOXAZOLE Inactive ZOLOFT 50 MG TAB 1 po qd ZOLOFT 50 MG TAB 3129 41 SERTRALINE HCL Inactive BENADRYL 25 MG CAP 1 po q8hr PRN Congestion BENADRYL 25 MG CAP 6049136 DIPHENHYDRAMINE HCL Inactive 28-0.8 MG TABS Take one by mouth daily 09/20 28-0.8 MG TABS VIT-FE FUMARATE-FA Inactive HYDROCODONE-ACETAMINOPHEN 5-325 MG TABS 1 po q 6hr PRN Pain 2010 HYDROCODONE-ACETAMINOPHEN 5-325 MG TABS 043476 HYDROCODONE-ACETAMINOPHEN Inactive LORATADINE 10 MG TABS 1 tablet by mouth daily LORATADINE 10 MG TABS 715850 LORATADINE Inactive LUIS 3-0.02 MG TABS 1 tablet by mouth daily as directed LUIS 3-0.02 MG TABS DROSPIRENONE-ETHINYL ESTRADIOL Inactive VITAMINS TABS Take one by mouth daily VITAMINS TABS MV & MIN W/FE-FA TABS Inactive PERCOCET 5-325 MG TABS 1 tablet by mouth every 6 hours as ne eded for pain PERCOCET 5-325 MG TABS 6016841 OXYCODONE-ACETAMIN OPHEN Inactive PREDNISONE 20 MG TAB 2 tabs daily for 4 days, 1 t ab daily for 4 days, 1/2 tab daily for 4 days PREDNISONE 20 MG TAB 233557 PREDNISON E Inactive CLINDAMYCIN HCL 300 MG CAPS 1 po q6hr x 7 days CLINDAMYCIN HCL 300 MG CAPS 774834 CLINDAMYCIN HCL Inactive HYDROCODONE-ACETAMINOPHEN 7.5-325 MG TABS 1 po QID PRN Pain 2011 HYDROCODONE-ACETAMINOPHEN 7.5-325 MG TABS 582279 HYDROCODONE-ACETAMINOPHEN Inactive SPIRONOLACTONE 25 MG TAB 1 tablet by mouth daily 01/22 SPIRONOLACTONE 25 MG TAB 430718 SPIRONOLACTONE Inactive IBUPROFEN 600 MG TAB 1 po q6-8hr PRN IBUPROFEN 600 MG TAB 506187 IBUPROFEN Inactive FERROUS SULFATE 325 (65 FE) MG TABS 1 tablet by mouth twice yung y FERROUS SULFATE 325 (65 FE) MG TABS 952035 FERROUS SULF ATE Inactive HYDROCODONE-ACETAMINOPHEN 7.5-500 MG [...] PRN Pain 2011 HYDROCODONE-ACETAMINOPHEN 5-325 MG TABS 593300 HYDROCODONE-ACETAMINOPHEN Inactive DOXYCYCLINE HYCLATE 100 MG CAPS Take one (1) tablet by mouth twice a day DOXYCYCLINE HYCLATE 100 MG CAPS 265644 DOXYCYCLINE HYCLATE Inactive PENICILLIN V POTASSIUM 500 MG TAB 1 four times a day 2 PENICILLIN V POTASSIUM 500 MG TAB 982738 PENICILLIN V POTASSIUM Sterling ctive PRISTIQ 50 MG [id number] 1 po qd PRISTIQ 50 MG [id number] DESVENLAFAXINE SUCCINATE Inactive TYLENOL/CODEINE #3 300-30 MG TAB 1-2 po q6hr PRN Pain TYLENOL/CODEINE #3 300-30 MG TAB 866622 ACETAMINOPHEN-CODEINE Inact krishna CEPHALEXIN 500 MG TABS Take one by mouth four times daily, morning, noon, early evening and bedtime. CEPHALEXIN 500 MG TABS 211874 CEPHALEXIN Inactive LORTAB 5 5-500 MG TABS 1/2 to 1 tablet by mouth go ry 6 hours as needed for pain LORTAB 5 5-500 MG TABS HYDROCODONE-A CETAMINOPHEN Inactive AMITRIPTYLINE HCL 25 MG TAB 1 tab by mouth daily 60 minutes before bedtime AMITRIPTYLINE HCL 25 MG TAB 738444 AMITRIPTYLINE HCL Inactive AMOXICILLIN 500 MG TABS 2 tabs PO bid x 10 d 7 AMOXICILLIN 500 MG TABS 744709 AMOXICILLIN Inactive IMPLANON 68 MG IMPL IMPLANTED IN LEFT ARM IMPLANON 68 MG IMPL ETONOGESTREL Inactive HYDROCODONE-ACETAMINOPHEN 5-325 MG TABS 1 PO tid PRN pain 5 HYDROCODONE-ACETAMINOPHEN 5-325 MG TABS 652201 HYDROCODONE-ACETAMIN OPHEN Inactive BACTRIM DS 800-160 MG TAB 1 tab by mouth twice daily 2 BACTRIM DS 800-160 MG TAB TRIMETHOPRIM-SULFAMETHOXAZOLE Inac tive CEPHALEXIN 500 MG CAPS 1 PO bid x 7 days CEPHALEXIN 500 MG CAPS 036854 CEPHALEXIN Inactive HYDROCODONE-ACETAMINOPHEN 5-325 MG TABS 1 tab by mouth every 6 hours as needed HYDROCODONE-ACETAMINOPHEN 5-325 MG TABS 584068 HYDROCODONE-ACETAMINOPHEN Inactive PROMETHAZINE-CODEINE 6.25-10 MG/5ML SYRP 1 tsp every 6 hrs prn c ough PROMETHAZINE-CODEINE 6.25-10 MG/5ML SYRP 859226 PROMETH AZINE-CODEINE Inactive IBUPROFEN 800 MG TAB 1 pill three times daily as needed for pain IBUPROFEN 800 MG TAB 948053 IBUPROFEN Inactive KEFLEX 500 MG CAP 1 tab po tid KEFLEX 500 MG CAP 972750 CEPHALEXIN Inactive HYDROCODONE-ACETAMINOPHEN 7.5-325 MG TABS 1 four times a day as needed for pain HYDROCODONE-ACETAMINOPHEN 7.5-325 MG TABS 634849 HYDROCODONE-ACETAMINOPHEN Inactive BACTRIM DS 800-160 MG TABS by mouth twice a day 11/05 BACTRIM DS 800-160 MG TABS SULFAMETHOXAZOLE-TRIMETHOPRIM Inactive IBUPROFEN 800 MG TABS 1 tid prn IBUPROFEN 800 MG TABS 228568 IBUPROFEN Inactive ENDOCET 10-325 MG TABS 1 q 6 hr prn ENDOC ET 10-325 MG TABS 3299780 OXYCODONE-ACETAMINOPHEN Inactive HYDROCODONE-ACETAMINOPHEN 7.5-325 MG TABS 1 by mouth e very 6 hours as needed for pain HYDROCODONE-ACETAMINOPHEN 7.5-325 MG TABS 076637 HYDROCODONE-ACETAMINOPHEN Inactive PERCOCET 7.5-325 MG TABS 1 PO q 8 hrs PRN pain PERCOCET 7.5-325 MG TABS 1000248 OXYCODONE-ACETAMINOPHEN Inactive LIDODERM 5 % PTCH One patch to painful area RI N. On for 12 hrs, off for 12 hrs. LIDODERM 5 % PTCH 9054798 LIDOCAINE Inactiv e PERCOCET 7.5-325 MG TABS 1 PO tid PRN pain PERCOCET 7.5- 325 MG TABS 2556821 OXYCODONE-ACETAMINOPHEN Inactive MOBIC 15 MG TABS 1 tab daily MOBIC 15 MG TABS 15 2695 MELOXICAM Inactive CYCLOBENZAPRINE HCL 10 MG TABS 1/2 - 1 tab PO tid PRN back p ain, muscle spasm CYCLOBENZAPRINE HCL 10 MG TABS 363394 CYCLOBENZA JOSEPH HCL Inactive LORATADINE 10 MG TABS 1 tablet by mouth daily LORATADINE 10 MG TABS 510434 LORATADINE Inactive HYDROCODONE-ACETAMINOPHEN 10-325 MG TABS 1 by mouth ev chaka 8 hours as needed for pain HYDROCODONE-ACETAMINOPHEN 10-325 MG TABS 743226 HYDROCODONE-ACETAMINOPHEN Inactive LC-5 LIDOCAINE 5 % CREA apply 1 time daily to affected area 2013 LC-5 LIDOCAINE 5 % CREA LIDOCAINE (ANORECTAL) In active PERCOCET 5-325 MG TAB 1 every 6 hours as needed PERCOCET 5-325 MG TAB 5692753 OXYCODONE-ACETAMINOPHEN Inactive KEFLEX 500 MG CAP 1 po qid KEFLEX 500 MG CAP 30 9114 CEPHALEXIN Inactive PROAIR HFA 108 (90 BASE) MCG/ACT AERS 2 puff q 4-6 hrs PRN 01/24 PROAIR HFA 108 (90 BASE) MCG/ACT AERS ALBUTEROL SULFATE Inactive AMOXICILLIN 875 MG TABS 1 tab by mouth twice daily 201 07/18/07 AMOXICILLIN 875 MG TABS 549541 AMOXICILLIN Inactive KEFLEX 500 MG CAP 1 po tid x 10 days KEFLEX 500 MG CAP 742634 CEPHALEXIN Inactive AMOXICILLIN 875 MG TABS 1 tab by mouth twice daily 201 07/19/27 AMOXICILLIN 875 MG TABS 146928 AMOXICILLIN Inactive AMOXICILLIN 875 MG TABS 1 tab by mouth twice daily 201 08/09/13 AMOXICILLIN 875 MG TABS 337008 AMOXICILLIN Inactive CIPRO 500 MG TAB 1 tablet by mouth twice daily CIPRO 500 MG TAB 415260 CIPROFLOXACIN HCL Inactive BACTRIM DS 800-160 MG TAB 1 tab by mouth twice daily 2 BACTRIM DS 800-160 MG TAB TRIMETHOPRIM-SULFAMETHOXAZOLE Inac tive LEVAQUIN 500 MG TABS 1 PO q day x 7 days LEVAQUIN 500 MG TABS 831202 LEVOFLOXACIN Inactive CLINDAMYCIN HCL 300 MG CAPS 1 po QID x 7 days CLINDAMYCIN HCL 300 MG CAPS 531199 CLINDAMYCIN HCL Inactive AUGMENTIN 875-125 MG TAB 1 tab by mouth twice daily with food 22/05/07 AUGMENTIN 875-125 MG TAB 613428 AMOXICILLIN-POT [place]A [place] Inactive DIFLUCAN 150 MG TAB 1 qODay x 2 doses DIFLUCAN 150 MG TAB 713879 FLUCONAZOLE Inactive PREDNISONE 20 MG TAB 2 tabs daily for 3 days, 1 t ab daily for 3 days, 1/2 tab daily for 2 days PREDNISONE 20 MG TAB 640758 PREDNISON E Inactive Advance Directives Directive Description Start Date PERMISSION TO SHARE Immunizations Vaccine Administration Date Value Standard Alf cription Seasonal influenza vaccine, injectable, containing preservative, for > 3 years old (Afluria, FluLaval, Fluzone, Fluvirin, Fluarix, Agriflu(>= 18 yo)) Fluzone (>3 yrs.) [[id number]] Influenza, seasonal, inject able Seasonal influenza vaccine, injectable, preservative free, for > 3 years old (Afluria, FluLaval, Fluzone, Fluvirin, Fluarix, Agriflu(>= 18 yo)) Fluzone preservative free (>3 yrs.) [[id number]] Influenza, seasonal, injectable, preservative free Seasonal influenza vaccine, injectable, containing preservative, for > 3 years old (Afluria, FluLaval, Fluzone, Fluvirin, Fluarix, Agriflu(>= 18 yo)) Fluzone (>3 yrs.) [[id number]] Influenza, seasonal, inject able Seasonal influenza vaccine, injectable, containing preservative, for > 3 years old (Afluria, FluLaval, Fluzone, Fluvirin, Fluarix, Agriflu(>= 18 yo)) Fluzone (>3 yrs.) [[id number]] Influenza, seasonal, inject able dT (Diphtheria and [...] negative Encounters Code Encounter Date Provider Facility CPT-31181 Level 2 Est. Patient 07:49:32 CDT Kalpesh goins MD [facility] CPT-30978 Level 3 New Patient 15:47:11 CASH CHECKER Bj huber MD [facility] CPT-34724 Level 4 Est. Patient 14:37:38 CASH CHECKER Abdirahman Rios MD [facility] CPT-22980 Level 2 Est. Patient 13:32:17 CASH CHECKER Kalpesh goins MD [facility] CPT-74518 Level 3 Est. Patient 17:32:57 CASH CHECKER Edilberto tiwari DO [facility] CPT-62235 Level 3 Est. Patient 17:22:33 CASH CHECKER Edilberto tiwari [facility] CPT-29443 Level 2 Est. Patient 16:57:09 CASH CHECKER Kalpesh goins MD [facility] CPT-43380 Level 3 Est. Patient 14:03:08 CASH CHECKER Abdirahman Rios MD [facility] CPT-31967 Level 3 Est. Patient 18:12:34 CDT Shola Wright [facility] CPT-65716 Level 3 Est. Patient 19:34:46 CDT Shola Wright [facility] CPT-00830 Level 3 Est. Patient 14:19:37 CDT Abdirahman Rios MD [facility] CPT-62751 Level 3 Est. Patient 14:11:58 CDT Kalpesh goins MD [facility]-72379 Level 3 Est. Patient 16:50:00 CDT Michelle MERCADO [facility] CPT-08599 Level 3 Est. Patient 17:11:32 CASH CHECKER Brandie bates MD PhD [facility] CPT-08306 Level 3 Est. Patient 16:31:47 CASH CHECKER Shola Wright [facility] CPT-93812 Level 3 Est. Patient 17:51:10 CASH CHECKER Abhinav Galvan MD [facility] CPT-29892 Level 4 Est. Patient 12:54:56 CASH CHECKER Kalpesh goins MD [facility]-60793 Level 4 Est. Patient 12:53:56 CASH CHECKER Kalpesh goins MD [facility]-06960 Level 3 Est. Patient 17:56:58 CDT Shola Wright [facility] CPT-74466 Level 3 Est. Patient 14:26:20 CDT Janak butcher [facility] CPT-72294 Level 3 Est. Patient 09:38:41 CDT Shola Thao Adriana [facility] CPT-29894 Level 3 Est. Patient 14:45:26 CDT Edilberto tiwari [facility] CPT-20726 Level 3 Est. Patient 10:51:33 CDT [facility] Level 3 Est. Patient 11:57:55 CASH CHECKER Shola Thao Adriana [facility] CPT-98448 Level 3 Est. Patient 09:53:33 CASH CHECKER Edilberto tiwari [facility] CPT-24939 Level 3 Est. Patient 14:42:54 CASH CHECKER Abhinav Galvan MD [facility] CPT-95986 Level 3 Est. Patient 15:10:02 CDT Janak butcher [facility] CPT-12104 Level 3 Est. Patient 15:20:20 CDT Theo dennis MD [facility] CPT-36355 Level 2 Est. Patient 14:08:57 CDT Kalpesh goins MD [facility] CPT-72532 Level 3 Est. Patient 13:56:19 CDT Abdirahman Rios MD [facility] CPT-14110 Level 3 Est. Patient 13:59:37 CDT Abdirahman Rios MD [facility] CPT-88263 Level 2 Est. Patient 14:44:59 CDT Kalpesh goins MD [facility] CPT-67727 Level 3 Est. Patient 06:06:23 CDT Edilberto tiwari [facility] CPT-22544 Level 3 Est. Patient 15:23:54 CDT Abdirahman Rios MD [facility] CPT-90078 Level 3 Est. Patient 15:43:49 CDT Abdirahman Rios MD [facility] CPT-10888 Level 3 Est. Patient 12:46:47 CASH CHECKER Abdirahman Rios MD [facility] CPT-71081 Level 3 Est. Patient 08:13:35 CASH CHECKER Abdirahman Rios MD [facility] CPT-75700 Level 2 Est. Patient 09:36:42 CASH CHECKER Abdirahman Rios MD [facility] CPT-74647 Level 3 Est. Patient 10:56:43 CDT Abdirahman Rios MD [facility] CPT-58228 Level 3 Est. Patient 18:24:52 CDT Abdirahman Rios MD [facility] CPT-61958 Level 3 Est. Patient 13:27:22 CDT Abdirahman Rios MD [facility] Procedures Code Procedure Name Date Entry Date Standard Desc ription CPT-49513 Postop F/U Visit 11:29:00 CASH CHECKER CPT-J0696 Rocephin 1000 mg (Ceftriaxone) 17:22:33 CASH CHECKER CPT-38034 Postop F/U Visit 18:41:07 CASH CHECKER CPT-28440 Postop F/U Visit 08:19:08 CASH CHECKER CPT-91823 Immunization Single Admin 16:41:53 CDT 2013 CPT-70806 Fluzone Quadrivalent Intramuscular Suspe nsion 0.5 ML 16:41:53 CDT CPT-OV Office Visit 16:39:18 CDT CPT-OV Office Visit 16:16:36 CDT CPT-OV Office Visit 15:34:48 CDT CPT-73276 Postop F/U Visit 14:50:12 CDT CPT-74301 Postop F/U Visit 14:41:10 CDT CPT-74015 Venipuncture Draw Fee 11:38:04 CASH CHECKER CPT-55703 Postop F/U Visit 19:02:59 CASH CHECKER CPT-56770 Postop F/U Visit 12:04:54 CASH CHECKER CPT-43912 Administration single or combination vac cine inc oral 15:56:43 CDT CPT-22477 Influenza split virus > age 3 15:56:43 CDT CPT-05006 Hand comp min 3V 14:25:19 CDT CPT-96099 Postop F/U Visit 21:40:51 CDT CPT-14699 Postop F/U Visit 10:58:43 CDT CPT-63465 Administration single or combination vac cine inc oral 12:33:54 CASH CHECKER CPT-13672 Influenza Preservative Free split virus >age 3 12:33:54 CASH CHECKER CPT-06219 Administration single or combination vac cine inc oral 09:30:51 CDT CPT-42403 Influenza split virus > age 3 09:30:51 CDT CPT-99734 Postop F/U Visit 15:14:53 CDT CPT-67210 Postop F/U Visit 13:50:14 CDT CPT-82824 Postop F/U Visit 13:34:52 CDT CPT-OV Office Visit 16:55:03 CDT CPT-95575 [place] of cervix w bx ECC 13:32:50 CDT 10/19 CPT-J1885 Toradol 60 mg (Ketorolac) 15:31:59 CDT 2011 CPT-J1885 Toradol 60 mg (Ketorolac) 15:23:54 CDT 2011 CPT-05990 Visit 11:34:37 CASH CHECKER CPT-86374 Visit 10:52:39 CASH CHECKER CPT-05694 Visit 10:12:02 CASH CHECKER CPT-70185 Visit 11:22:43 CASH CHECKER CPT-74590 Visit 11:24:12 CASH CHECKER CPT-95655 Visit 10:47:05 CASH CHECKER CPT-OV Office Visit 10:26:16 CASH CHECKER CPT-OV Office Visit 15:34:31 CASH CHECKER CPT-29967 Visit 10:42:08 CASH CHECKER CPT-38538 Visit 10:52:45 CASH CHECKER CPT-000 Give Appropriate Flu Vaccine 16:56:41 CDT 2 CPT-84938 Administration single or combination vac cine inc oral 10:33:21 CDT CPT-09984 Influenza split virus > age 3 10:33:21 CDT CPT-00444 Visit 13:23:09 CDT CPT-46278 Visit 18:24:52 CDT CPT-69380 Son[facility] OB comp > 14 weeks 12:07:49 CDT 04/07
--- OUTSIDE RECORDS SUMMARY | 2020-01-18 17:02 | XMS REPORT ---
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 Role Phone CHRISTOPHER YORK, CAROLEE PP [phone] Summary purpose TRANSITION OF CARE AUTO GENERATION Chief Complaint and Reason for Visit Admit Diagnosis 1 CELLULITIS OF LEG Problem list No authorized problems tracked for [...] 10 mg-325 mg tablet [address] N Every 12 Hours Current Patient recall [...] and/or laboratory data RESULTS Therapeutic Drug Monitoring 31-69-959101:35:00 Result Normal Range Units Vancomycin Trough L 6.8 10-22 ug /ml 60-04-062313:20:00 Result Normal Range Units Vancomycin Trough L 7.0 10-22 ug /ml History of procedures Procedure Code Code Type Description Date Performed Performing Physician 31511 CPT-4 ROUTINE VENIPUNCTURE 08-11-2014 STAN WHITE 25945 CPT-4 ROUTINE VENIPUNCTURE 08-15-2014 CORTEZ HOLLAND 78497 CPT-4 ASSAY OF VANCOMYCIN 08-11-2014 CAROLEE DILLOW 92457 CPT-4 ASSAY OF VANCOMYCIN 08-15-2014 CAROLEE DILLOW 57429 CPT-4 THER/PROPH/DIAG IV INF, INIT 08-09-2014 CAROLEE DILLOW 00666 CPT-4 THER/PROPH/DIAG IV INF, INIT 08-09-2014 CAROLEE DILLOW 73025 CPT-4 THER/PROPH/DIAG IV INF, INIT 08-10-2014 CAROLEE DILLOW 15801 CPT-4 THER/PROPH/DIAG IV INF, INIT 08-10-2014 CAROLEE DILLOW 89400 CPT-4 THER/PROPH/DIAG IV INF, INIT 08-11-2014 CAROLEE DILLOW 66329 CPT-4 THER/PROPH/DIAG IV INF, INIT 08-11-2014 CAROLEE DILLOW 12722 CPT-4 THER/PROPH/DIAG IV INF, INIT 08-12-2014 CAROLEE DILLOW 70385 CPT-4 THER/PROPH/DIAG IV INF, INIT 08-12-2014 CAROLEE DILLOW 75171 CPT-4 THER/PROPH/DIAG IV INF, INIT 08-13-2014 CAROLEE DILLOW 70484 CPT-4 THER/PROPH/DIAG IV INF, INIT 08-13-2014 CAROLEE DILLOW 24742 CPT-4 THER/PROPH/DIAG IV INF, INIT 08-14-2014 CAROLEE DILLOW 01280 CPT-4 THER/PROPH/DIAG IV INF, INIT 08-14-2014 CAROLEE DILLOW 34113 CPT-4 THER/PROPH/DIAG IV INF, INIT 08-15-2014 CAROLEE DILLOW 19433 CPT-4 THER/PROPH/DIAG IV INF ADDON 08-09-2014 CAROLEE DILLOW 81179 CPT-4 THER/PROPH/DIAG IV INF ADDON 08-09-2014 CAROLEE DILLOW 25769 CPT-4 THER/PROPH/DIAG IV INF ADDON 08-10-2014 CAROLEE DILLOW 41479 CPT-4 THER/PROPH/DIAG IV INF ADDON 08-10-2014 CAROLEE DILLOW 09165 CPT-4 THER/PROPH/DIAG IV INF ADDON 08-11-2014 CAROLEE DILLOW 38959 CPT-4 THER/PROPH/DIAG IV INF ADDON 08-11-2014 CAROLEE DILLOW 91346 CPT-4 THER/PROPH/DIAG IV INF ADDON 08-12-2014 CAROLEE DILLOW 81798 CPT-4 THER/PROPH/DIAG IV INF ADDON 08-12-2014 CAROLEE DILLOW 89820 CPT-4 THER/PROPH/DIAG IV INF ADDON 08-13-2014 CAROLEE DILLOW 11315 CPT-4 THER/PROPH/DIAG IV INF ADDON 08-13-2014 CAROLEE DILLOW 22288 CPT-4 THER/PROPH/DIAG IV INF ADDON 08-14-2014 CAROLEE DILLOW 37419 CPT-4 THER/PROPH/DIAG IV INF ADDON 08-14-2014 CAROLEE DILLOW 00133 CPT-4 THER/PROPH/DIAG IV INF ADDON 08-15-2014 CAROLEE DILLOW 62103 CPT-4 TX/PRO/DX INJ NEW DRUG ADDON 08-09-2014 CAROLEE DILLOW 52655 CPT-4 TX/PRO/DX INJ NEW DRUG ADDON 08-09-2014 CAROLEE DILLOW 30452 CPT-4 TX/PRO/DX INJ NEW DRUG ADDON 08-10-2014 CAROLEE DILLOW 03609 CPT-4 TX/PRO/DX INJ NEW DRUG ADDON 08-10-2014 CAROLEE DILLOW 61343 CPT-4 TX/PRO/DX INJ NEW DRUG ADDON 08-11-2014 CAROLEE DILLOW 29945 CPT-4 TX/PRO/DX INJ NEW DRUG ADDON 08-11-2014 CAROLEE DILLOW 47761 CPT-4 TX/PRO/DX INJ NEW DRUG ADDON 08-12-2014 CAROLEE DILLOW 28607 CPT-4 TX/PRO/DX INJ NEW DRUG ADDON 08-12-2014 CAROLEE DILLOW 72484 CPT-4 TX/PRO/DX INJ NEW DRUG ADDON 08-13-2014 CAROLEE DILLOW 44774 CPT-4 TX/PRO/DX INJ NEW DRUG ADDON 08-13-2014 CAROLEE DILLOW 76678 CPT-4 TX/PRO/DX INJ NEW DRUG ADDON 08-14-2014 CAROLEE DILLOW 98802 CPT-4 TX/PRO/DX INJ NEW DRUG ADDON 08-14-2014 CAROLEE DILLOW 29340 CPT-4 TX/PRO/DX INJ NEW DRUG ADDON 08-15-2014 CAROLEE DILLOW J2550 CPT-4 PROMETHAZIEN 25MG/ML 08-09-2014 STAN N DILLOW J2550 CPT-4 PROMETHAZIEN 25MG/ML 08-09-2014 STAN N DILLOW J2550 CPT-4 PROMETHAZIEN 25MG/ML 08-10-2014 STAN N DILLOW J2550 CPT-4 PROMETHAZIEN 25MG/ML 08-10-2014 STAN N DILLOW J2550 CPT-4 PROMETHAZIEN 25MG/ML 08-11-2014 STAN N DILLOW J2550 CPT-4 PROMETHAZIEN 25MG/ML 08-11-2014 STAN N DILLOW J2550 CPT-4 PROMETHAZIEN 25MG/ML 08-12-2014 STAN N DILLOW J2550 CPT-4 PROMETHAZIEN 25MG/ML 08-12-2014 STAN N DILLOW J2550 CPT-4 PROMETHAZIEN 25MG/ML 08-13-2014 STAN N DILLOW J2550 CPT-4 PROMETHAZIEN 25MG/ML 08-13-2014 STAN N DILLOW J2550 CPT-4 PROMETHAZIEN 25MG/ML 08-14-2014 STAN N DILLOW J2550 CPT-4 PROMETHAZIEN 25MG/ML 08-14-2014 STAN N DILLOW J2550 CPT-4 PROMETHAZIEN 25MG/ML 08-15-2014 STAN N DILLOW J3370 CPT-4 VANCOMYCIN HCL INJECTION 08-09-2014 M MORENA DILLOW J3370 CPT-4 VANCOMYCIN HCL INJECTION 08-09-2014 M MORENA DILLOW J3370 CPT-4 VANCOMYCIN HCL INJECTION 08-10-2014 M MORENA DILLOW J3370 CPT-4 VANCOMYCIN HCL INJECTION 08-11-2014 M MORENA DILLOW J3370 CPT-4 VANCOMYCIN HCL INJECTION 08-11-2014 M MORENA DILLOW J3370 CPT-4 VANCOMYCIN HCL INJECTION 08-12-2014 M MORENA DILLOW J3370 CPT-4 VANCOMYCIN HCL INJECTION 08-13-2014 M MORENA DILLOW J3370 CPT-4 VANCOMYCIN HCL INJECTION 08-14-2014 M MORENA DILLOW J3370 CPT-4 VANCOMYCIN HCL INJECTION 08-14-2014 M MORENA DILLOW J3370 CPT-4 VANCOMYCIN HCL INJECTION 08-15-2014 M MORENA DILLOW J3370 CPT-4 VANCOMYCIN HCL INJECTION 08-16-2014 M MORENA DILLOW J3370 CPT-4 VANCOMYCIN HCL INJECTION 08-16-2014 Dorie WHITE J7040 CPT-4 NORMAL SALINE SOLUTION INFUS 08-09-2014 CAROLEE WHITE J7040 CPT-4 NORMAL SALINE SOLUTION INFUS 08-09-2014 CAROLEE DILHOMAR J7040 CPT-4 NORMAL SALINE SOLUTION INFUS 08-10-2014 CAROLEE WHITE J7040 CPT-4 NORMAL SALINE SOLUTION INFUS 08-11-2014 CAROLEE DILHOMAR J7040 CPT-4 NORMAL SALINE SOLUTION INFUS 08-11-2014 CAROLEE DILHOMAR J7040 CPT-4 NORMAL SALINE SOLUTION INFUS 08-12-2014 CAROLEE DILHOMAR J7040 CPT-4 NORMAL SALINE SOLUTION INFUS 08-13-2014 CAROLEE DILHOMAR J7040 CPT-4 NORMAL SALINE SOLUTION INFUS 08-14-2014 CAROLEE WHITE J7040 CPT-4 NORMAL SALINE SOLUTION INFUS 08-14-2014 CAROLEE DILHOMAR J7040 CPT-4 NORMAL SALINE SOLUTION INFUS 08-15-2014 CAROLEE WHITE J7040 CPT-4 NORMAL SALINE SOLUTION INFUS 08-16-2014 CAROLEE DILHOMAR J7040 CPT-4 NORMAL SALINE SOLUTION INFUS 08-16-2014 CAROLEE WHITE Functional status Functional Status Finding Observation Time Hearing Prob Loc none 37-02-903189:01 Vision Problems yes 12-24-722456:01 Vision Correct Dev glasses 92-85-846023:01 Ambulation Asst Dev none 27-03-139503:01 Oxygen no :19 Oxygen Flow Rate RA 76-32-511759:37 IV Site Location L hand :24 IV Type peripheral 42-32-853525:24 IV Site Information existing :24 IV Site Start Attmpt 2 times 92-15-110219:31 IV Site Isael 20 85-39-950940:24 IV Site Appearance WNL 50-24-106892:24 IV Site Color clear 78-12-020130:24 IV Site Patent yes :24 Dressing Changed yes 74-87-945646:31 Dressing Type occlusive :24 Nursing Note Pt discharged; tolerated IV vanc infusio n without difficulty. 21-84-880429:26 Cognitive Status Finding Observation Time Oriented To Date 5 Yes 60-48-192044:[address] 5 Yes 19-81-689482:01 Name 3 Objects 3 Yes :01 Name Object in Rm 2 Yes :01 Recall 3 Objects 3 Yes : Repeats a Phrase 1 Yes : Follows Verbal Direc 3 Yes : Follows Written Dire 1 Yes : Write a Sentance 1 Yes : Draw an Object 1 Yes : Mini Mental Total 25 points : Vital signs Type Value Date Respiration Rate 18breaths per minute : 19 Pulse 77beats per minute :19 Oxygen Saturation 97% :19 BP Systolic 116mmHg 46-78-619448:19 BP Diastolic 57mmHg 01-13-714512:19 Temperature 97.0F 88-53-269621:19 Height 63inches 62-21-311406:58 Weight 224LB 24-86-691419:58 Social history No Social History or smoking status observations were recorded for this visit. ( Unknown if ever smoked.) Treatment Plan No treatment plan text is available for this visit. Hospital discharge instructions Valuables no PNE Vac never Flu Vac 04/2014 Tetanus Vac 06/2013
--- OUTSIDE RECORDS SUMMARY | 2020-01-18 17:03 | XMS REPORT | Clinical Summary ---
Author Author Admin, Jeri Rashid Organization [facility] Address Unknown Phone Unavailable Allergies, Adverse [...] prophylactic vaccin ation and inoculation against influenza , INCIDENTAL PROBLEM ICD-V22.2 Inacti ve Abdirahman [...] 15 MG TABS 1 tab daily MELOXICAM [id number] Ac carlyve Good Julian MD Active PERCOCET 7.5-325 MG TABS 1 PO q 8 hrs PRN pain OXYCODONE-ACETAMINOPHEN 46656361947 No Longer Active Shola MCGILL Active HYDROCODONE-ACETAMINOPHEN 10-325 MG TABS 1 by mouth ev chaka 8 hours as needed for pain HYDROCODONE-ACETAMINOPHEN 53122488769 Active Shola MCGILL Active HYDROCODONE-ACETAMINOPHEN 7.5-325 MG TABS 1 by mouth e very 6 hours as needed for pain HYDROCODONE-ACETAMINOPHEN 91922841133 No Longer Active Good Julian MD Active LC-5 LIDOCAINE 5 % CREA apply 1 time daily to affected area LIDOCAINE (ANORECTAL) 38852647815 Active Shola MCGILL Active CLINDAMYCIN HCL 300 MG CAPS 1 po QID x 7 days CLINDAMYCIN HCL 30099004342 No Longer Active Abdirahman Rios MD Activ e BACTRIM DS 800-160 MG TABS 1 po BID x 7 days 5 SULFAMETHOXAZOLE-TRIMETHOPRIM 07222183003 No Longer Active Abdirahman Rios MD Active ENDOCET 10-325 MG TABS 1 q 6 hr prn OXYCODONE-ACETAMINOPHEN 49105503463 No Longer Active Abdirahman Rios MD Active IBUPROFEN 800 MG TABS 1 tid prn IBUPROFEN 982105 80916 No Longer Active Abdirahman Rios MD Active BACTRIM DS 800-160 MG TABS by mouth twice a day 11/05 SULFAMETHOXAZOLE-TRIMETHOPRIM 85808666769 No Longer Active Good Julian MD Active HYDROCODONE-ACETAMINOPHEN 7.5-325 MG TABS 1 four times a day as needed for pain HYDROCODONE-ACETAMINOPHEN 07544599058 No Longer Activ e Good Julian MD Active KEFLEX 500 MG CAP 1 tab po tid CEPHALEXIN 853357 69692 No Longer Active Hira Moser APRN Active IBUPROFEN 800 MG TAB 1 pill three times daily as needed for pain IBUPROFEN 64405966929 No Longer Active Kalpesh Dong MD Active PROMETHAZINE-CODEINE 6.25-10 MG/5ML SYRP 1 tsp every 6 hrs prn c ou PROMETHAZINE-CODEINE 15118332984 No Longer Active Kalpesh Carr Active ALPRAZOLAM 0.5 MG TABS 1 PO bid PRN ALPRAZOLAM 044746 07810 Active Shola MCGILL Active HYDROCODONE-ACETAMINOPHEN 5-325 MG TABS 1 tab by mouth every 6 hours as needed HYDROCODONE-ACETAMINOPHEN 33986867885 No Longer Activ e Shola MCGILL Active CEPHALEXIN 500 MG CAPS 1 PO bid x 7 days CEPHAL EXIN 00772970162 No Longer Active Shola MCGILL Active BACTRIM DS 800-160 MG TAB 1 tab by mouth twice daily 2 TRIMETHOPRIM-SULFAMETHOXAZOLE 04081844197 No Longer Active Kalpesh Dong MD Active HYDROCODONE-ACETAMINOPHEN 5-325 MG TABS 1 PO tid PRN pain 5 HYDROCODONE-ACETAMINOPHEN 78176041651 No Longer Active Abhinav Galvan MD Active IMPLANON 68 MG IMPL IMPLANTED IN LEFT ARM ETONO GESTREL 21930048103 No Longer Active Hira Moser APRN Active AMOXICILLIN 500 MG TABS 2 tabs PO bid x 10 d AM OXICILLIN 03361659605 No Longer Active Kalpesh Dong MD Active LEVAQUIN 500 MG TABS 1 PO q day x 7 days LEVOFL OXACIN 95944975922 No Longer Active Shola MCGILL Active PROAIR HFA 108 (90 BASE) MCG/ACT AERS 2 puff q 4-6 hrs PRN ALBUTEROL SULFATE 65883166123 Active Shola MCGILL Acti ve FIORICET 50-325-40 MG TABS 2 PO q 8 hrs PRN FOSTER [id number]-LAAT-[id number] Active Shola MCGILL Active AMITRIPTYLINE HCL 25 MG TAB 1 tab by mouth daily 60 minutes before bedtime AMITRIPTYLINE HCL 49729061480 No Longer Active Shola MCGILL Active LORTAB 5 5-500 MG TABS 1/2 to 1 tablet by mouth go ry 6 hours as needed for pain HYDROCODONE-ACETAMINOPHEN 65831639099 No Longer Active Shola MCGILL Active CEPHALEXIN 500 MG TABS Take one by mouth four times daily, morning, noon, early evening and bedtime. CEPHALEXIN 16754692818 No Long er Active Hira Moser TOOL LAPPER HAND Active TYLENOL/CODEINE #3 300-30 MG TAB 1-2 po q6hr PRN Pain ACETAMINOPHEN-CODEINE 22214484811 No Longer Active Edilberto W Ned DO Active PRISTIQ 50 MG [id number] 1 po qd DESVENLAFAXI NE SUCCINATE 21545750708 No Longer Active Edilberto Marino DO Active PENICILLIN V POTASSIUM 500 MG TAB 1 four times a day 2 PENICILLIN V POTASSIUM 73853823507 No Longer Active Edilberto Marino DO Active DOXYCYCLINE HYCLATE 100 MG CAPS Take one (1) tablet by mouth twice a day DOXYCYCLINE HYCLATE 27118906602 No Longer Active Ronnie Galvan MD Active HYDROCODONE-ACETAMINOPHEN 5-325 MG TABS 1 po q 6hr PRN Pain 2011 HYDROCODONE-ACETAMINOPHEN 79135098894 No Longer Active Patri joan Perez RN Active BACTRIM DS 800-160 MG TAB 1 tab by mouth twice daily 2 TRIMETHOPRIM-SULFAMETHOXAZOLE 78625726933 No Longer Active Kalpesh Dong MD Active LORTAB 5 5-500 MG TABS 1/2 to 1 tablet by mouth go ry 4 hours as needed for pain HYDROCODONE-ACETAMINOPHEN 07586482463 No Longer Active Kalpesh Dong MD Active GENERESS FE 0.8-25 MG-MCG CHEW Take one by mouth daily NORETHIN-ETH ESTRADIOL-FE 69725116140 No Longer Active Kalpesh Dong MD Active HYDROCODONE-ACETAMINOPHEN 7.5-500 MG TABS 1-2 every 4 hours as needed HYDROCODONE-ACETAMINOPHEN 98206449973 No Longer Activ e Kalpesh Dong MD Active FERROUS SULFATE 325 (65 FE) MG TABS 1 tablet by mouth twice yung y FERROUS SULFATE 76445934270 No Longer Active Kalpesh Dong MD Active IBUPROFEN 600 MG TAB 1 po q6-8hr PRN IBUPROFEN 75407401116 No Longer Active Kalpesh Dong MD Active SPIRONOLACTONE 25 MG TAB 1 tablet by mouth daily 01/22 SPIRONOLACTONE 28188252394 No Longer Active Kalpesh Dong MD Acti ve HYDROCODONE-ACETAMINOPHEN 7.5-325 MG TABS 1 po QID PRN Pain 2011 HYDROCODONE-ACETAMINOPHEN 48982170999 No Longer Active Kalpesh Dong MD Active CLINDAMYCIN HCL 300 MG CAPS 1 po q6hr x 7 days CLINDAMYCIN HCL 48040551126 No Longer Active Edilberto Marino DO Active PREDNISONE 20 MG TAB 2 tabs daily for 4 days, 1 t ab daily for 4 days, 1/2 tab daily for 4 days PREDNISONE 45818126319 No Longer Active Edilberto Marino DO Active PERCOCET 5-325 MG TABS 1 tablet by mouth every 6 hours as ne eded for pain OXYCODONE-ACETAMINOPHEN 74214729243 No Longer Active Abdirahman Rios MD Active VITAMINS TABS Take one by mouth daily MV & MIN W/FE-FA TABS 29818935207 No Longer Active Abdirahman Rios MD Active LUIS 3-0.02 MG TABS 1 tablet by mouth daily as directed DROSPIRENONE-ETHINYL ESTRADIOL 44288851627 No Longer Active Abdirahman Rios MD Active LORATADINE 10 MG TABS 1 tablet by mouth daily L ORATADINE 87325744876 No Longer Active Kalpesh Dong MD Active HYDROCODONE-ACETAMINOPHEN 5-325 MG TABS 1 po q 6hr PRN Pain 2010 HYDROCODONE-ACETAMINOPHEN 57554303585 No Longer Active Edilberto Marino DO Active BACTRIM DS 800-160 MG TAB 1 tab by mouth twice daily 2 TRIMETHOPRIM-SULFAMETHOXAZOLE 41995182852 No Longer Active Abdirahman Rios MD Active 28-0.8 MG TABS Take one by mouth daily 09/20 VIT-FE FUMARATE-FA 65854678737 No Longer Active Abdirahman Rios MD Active CIPRO 500 MG TAB 1 tablet by mouth twice daily CIPROFLOXACIN HCL 40312505132 No Longer Active Abdirahman Rios MD Active BENADRYL 25 MG CAP 1 po q8hr PRN Congestion DIPHENHYDRAMINE HCL 80662125673 No Longer Active Abdirahman Rios MD Active ZOLOFT 50 MG TAB 1 po qd SERTRALINE HCL 260166 27664 No Longer Active Abdirahman Rios MD Active AMOXICILLIN 875 MG TABS 1 tab by mouth twice daily 201 08/09/13 AMOXICILLIN 76704915758 No Longer Active Abdirahman Rios MD Activ e AMOXICILLIN 875 MG TABS 1 tab by mouth twice daily 201 07/19/27 AMOXICILLIN 84370025589 No Longer Active Abdirahman Rios MD Activ e BACTRIM DS 800-160 MG TAB 2 tab by mouth twice daily 2 TRIMETHOPRIM-SULFAMETHOXAZOLE 29177018398 No Longer Active Abdirahman Rios MD Active KEFLEX 500 MG CAP 1 po tid x 10 days CEPHALEXIN 83642779122 No Longer Active Abdirahman Rios MD Active AMOXICILLIN 875 MG TABS 1 tab by mouth twice daily 201 07/18/07 AMOXICILLIN 87358656524 No Longer Active Abdirahman Rios MD Activ e BACTRIM DS 800-160 MG TAB 2 tab by mouth twice daily 2 BACTRIM DS 800-160 MG TAB TRIMETHOPRIM-SULFAMETHOXAZOLE Inactive ZOLOFT 50 MG TAB 1 po qd ZOLOFT 50 MG TAB 3129 41 SERTRALINE HCL Inactive BENADRYL 25 MG CAP 1 po q8hr PRN Congestion BENADRYL 25 MG CAP 8822694 DIPHENHYDRAMINE HCL Inactive 28-0.8 MG TABS Take one by mouth daily 09/20 28-0.8 MG TABS VIT-FE FUMARATE-FA Inactive HYDROCODONE-ACETAMINOPHEN 5-325 MG TABS 1 po q 6hr PRN Pain 2010 HYDROCODONE-ACETAMINOPHEN 5-325 MG TABS 928102 HYDROCODONE-ACETAMINOPHEN Inactive LORATADINE 10 MG TABS 1 tablet by mouth daily LORATADINE 10 MG TABS 834966 LORATADINE Inactive LUIS 3-0.02 MG TABS 1 tablet by mouth daily as directed LUIS 3-0.02 MG TABS DROSPIRENONE-ETHINYL ESTRADIOL Inactive VITAMINS TABS Take one by mouth daily VITAMINS TABS MV & MIN W/FE-FA TABS Inactive PERCOCET 5-325 MG TABS 1 tablet by mouth every 6 hours as ne eded for pain PERCOCET 5-325 MG TABS 9640154 OXYCODONE-ACETAMIN OPHEN Inactive PREDNISONE 20 MG TAB 2 tabs daily for 4 days, 1 t ab daily for 4 days, 1/2 tab daily for 4 days PREDNISONE 20 MG TAB 998108 PREDNISON E Inactive CLINDAMYCIN HCL 300 MG CAPS 1 po q6hr x 7 days CLINDAMYCIN HCL 300 MG CAPS 390996 CLINDAMYCIN HCL Inactive HYDROCODONE-ACETAMINOPHEN 7.5-325 MG TABS 1 po QID PRN Pain 2011 HYDROCODONE-ACETAMINOPHEN 7.5-325 MG TABS 516473 HYDROCODONE-ACETAMINOPHEN Inactive SPIRONOLACTONE 25 MG TAB 1 tablet by mouth daily 01/22 SPIRONOLACTONE 25 MG TAB 463813 SPIRONOLACTONE Inactive IBUPROFEN 600 MG TAB 1 po q6-8hr PRN IBUPROFEN 600 MG TAB 209263 IBUPROFEN Inactive FERROUS SULFATE 325 (65 FE) MG TABS 1 tablet by mouth twice yung y FERROUS SULFATE 325 (65 FE) MG TABS 914553 FERROUS SULF ATE Inactive HYDROCODONE-ACETAMINOPHEN 7.5-500 MG [...] PRN Pain 2011 HYDROCODONE-ACETAMINOPHEN 5-325 MG TABS 010919 HYDROCODONE-ACETAMINOPHEN Inactive DOXYCYCLINE HYCLATE 100 MG CAPS Take one (1) tablet by mouth twice a day DOXYCYCLINE HYCLATE 100 MG CAPS 543790 DOXYCYCLINE HYCLATE Inactive PENICILLIN V POTASSIUM 500 MG TAB 1 four times a day 2 PENICILLIN V POTASSIUM 500 MG TAB 298654 PENICILLIN V POTASSIUM Siri ctive PRISTIQ 50 MG [id number] 1 po qd PRISTIQ 50 MG [id number] DESVENLAFAXINE SUCCINATE Inactive TYLENOL/CODEINE #3 300-30 MG TAB 1-2 po q6hr PRN Pain TYLENOL/CODEINE #3 300-30 MG TAB 432495 ACETAMINOPHEN-CODEINE Inact krishna CEPHALEXIN 500 MG TABS Take one by mouth four times daily, morning, noon, early evening and bedtime. CEPHALEXIN 500 MG TABS 877417 CEPHALEXIN Inactive LORTAB 5 5-500 MG TABS 1/2 to 1 tablet by mouth go ry 6 hours as needed for pain LORTAB 5 5-500 MG TABS HYDROCODONE-A CETAMINOPHEN Inactive AMITRIPTYLINE HCL 25 MG TAB 1 tab by mouth daily 60 minutes before bedtime AMITRIPTYLINE HCL 25 MG TAB 735490 AMITRIPTYLINE HCL Inactive AMOXICILLIN 500 MG TABS 2 tabs PO bid x 10 d 7 AMOXICILLIN 500 MG TABS 114996 AMOXICILLIN Inactive IMPLANON 68 MG IMPL IMPLANTED IN LEFT ARM IMPLANON 68 MG IMPL ETONOGESTREL Inactive HYDROCODONE-ACETAMINOPHEN 5-325 MG TABS 1 PO tid PRN pain 5 HYDROCODONE-ACETAMINOPHEN 5-325 MG TABS 468147 HYDROCODONE-ACETAMIN OPHEN Inactive BACTRIM DS 800-160 MG TAB 1 tab by mouth twice daily 2 BACTRIM DS 800-160 MG TAB TRIMETHOPRIM-SULFAMETHOXAZOLE Inac tive CEPHALEXIN 500 MG CAPS 1 PO bid x 7 days CEPHALEXIN 500 MG CAPS 048035 CEPHALEXIN Inactive HYDROCODONE-ACETAMINOPHEN 5-325 MG TABS 1 tab by mouth every 6 hours as needed HYDROCODONE-ACETAMINOPHEN 5-325 MG TABS 506952 HYDROCODONE-ACETAMINOPHEN Inactive PROMETHAZINE-CODEINE 6.25-10 MG/5ML SYRP 1 tsp every 6 hrs prn c ough PROMETHAZINE-CODEINE 6.25-10 MG/5ML SYRP 511502 PROMETH AZINE-CODEINE Inactive IBUPROFEN 800 MG TAB 1 pill three times daily as needed for pain IBUPROFEN 800 MG TAB 781461 IBUPROFEN Inactive KEFLEX 500 MG CAP 1 tab po tid KEFLEX 500 MG CAP 874525 CEPHALEXIN Inactive HYDROCODONE-ACETAMINOPHEN 7.5-325 MG TABS 1 four times a day as needed for pain HYDROCODONE-ACETAMINOPHEN 7.5-325 MG TABS 613689 HYDROCODONE-ACETAMINOPHEN Inactive BACTRIM DS 800-160 MG TABS by mouth twice a day 11/05 BACTRIM DS 800-160 MG TABS SULFAMETHOXAZOLE-TRIMETHOPRIM Inactive IBUPROFEN 800 MG TABS 1 tid prn IBUPROFEN 800 MG TABS 256367 IBUPROFEN Inactive ENDOCET 10-325 MG TABS 1 q 6 hr prn ENDOC ET 10-325 MG TABS 0063625 OXYCODONE-ACETAMINOPHEN Inactive HYDROCODONE-ACETAMINOPHEN 7.5-325 MG TABS 1 by mouth e very 6 hours as needed for pain HYDROCODONE-ACETAMINOPHEN 7.5-325 MG TABS 256694 HYDROCODONE-ACETAMINOPHEN Inactive PERCOCET 7.5-325 MG TABS 1 PO q 8 hrs PRN pain PERCOCET 7.5-325 MG TABS 1491126 OXYCODONE-ACETAMINOPHEN Inactive AMOXICILLIN 875 MG TABS 1 tab by mouth twice daily 201 07/18/07 AMOXICILLIN 875 MG TABS 316703 AMOXICILLIN Inactive KEFLEX 500 MG CAP 1 po tid x 10 days KEFLEX 500 MG CAP 520184 CEPHALEXIN Inactive AMOXICILLIN 875 MG TABS 1 tab by mouth twice daily 201 07/19/27 AMOXICILLIN 875 MG TABS 254994 AMOXICILLIN Inactive AMOXICILLIN 875 MG TABS 1 tab by mouth twice daily 201 08/09/13 AMOXICILLIN 875 MG TABS 314460 AMOXICILLIN Inactive CIPRO 500 MG TAB 1 tablet by mouth twice daily CIPRO 500 MG TAB 192521 CIPROFLOXACIN HCL Inactive BACTRIM DS 800-160 MG TAB 1 tab by mouth twice daily 2 BACTRIM DS 800-160 MG TAB TRIMETHOPRIM-SULFAMETHOXAZOLE Inac tive LEVAQUIN 500 MG TABS 1 PO q day x 7 days LEVAQUIN 500 MG TABS 281007 LEVOFLOXACIN Inactive CLINDAMYCIN HCL 300 MG CAPS 1 po QID x 7 days CLINDAMYCIN HCL 300 MG CAPS 722684 CLINDAMYCIN HCL Inactive Advance Directives Directive Description Start Date PERMISSION TO SHARE Immunizations Vaccine Administration Date Value Standard Alf cription Seasonal influenza vaccine, injectable, containing preservative, for > 3 years old (Afluria, FluLaval, Fluzone, Fluvirin, Fluarix, Agriflu(>= 18 yo)) Fluzone (>3 yrs.) [[id number]] Influenza, seasonal, inject able Seasonal influenza vaccine, injectable, preservative free, for > 3 years old (Afluria, FluLaval, Fluzone, Fluvirin, Fluarix, Agriflu(>= 18 yo)) Fluzone preservative free (>3 yrs.) [[id number]] Influenza, seasonal, injectable, preservative free Seasonal influenza vaccine, injectable, containing preservative, for > 3 years old (Afluria, FluLaval, Fluzone, Fluvirin, Fluarix, Agriflu(>= 18 yo)) Fluzone (>3 yrs.) [[id number]] Influenza, seasonal, inject able Seasonal influenza vaccine, injectable, containing preservative, for > 3 years old (Afluria, FluLaval, Fluzone, Fluvirin, Fluarix, Agriflu(>= 18 yo)) Fluzone (>3 yrs.) [[id number]] Influenza, seasonal, inject able dT (Diphtheria and [...] ... - Chemistry sodium, serum 140 mmol/L 979-706 8896/02/24 potassium, serum 4.3 mmol/L 3.5-5.2 chloride, serum [...] 4.3-6.0 Lab Report: T3, TOTAL, INSULIN - Neon Technician ry triiodothyronine (T3), serum 78 ng/dL 76-181 [...] mg/dL Encounters Code Encounter Date Provider Facility CPT-76067 Level 3 Est. Patient 14:19:37 CDT Abdirahman Rios MD [facility] CPT-91215 Level 3 Est. Patient 14:11:58 CDT Kalpesh goins MD [facility]-34968 Level 3 Est. Patient 16:50:00 CDT Michelle BRADFORDP [facility] CPT-85596 Level 3 Est. Patient 17:11:32 ELECTRONICS ENGINEERING TECHNICIAN Brandie bates MD PhD [facility] CPT-23072 Level 3 Est. Patient 16:31:47 ELECTRONICS ENGINEERING TECHNICIAN [facility] CPT-53504 Level 3 Est. Patient 17:51:10 ELECTRONICS ENGINEERING TECHNICIAN Abhinav Galvan MD [facility]-77296 Level 4 Est. Patient 12:54:56 ELECTRONICS ENGINEERING TECHNICIAN Kalpesh goins MD [facility]-65135 Level 4 Est. Patient 12:53:56 ELECTRONICS ENGINEERING TECHNICIAN Kalpesh goins MD [facility] CPT-04179 Level 3 Est. Patient 17:56:58 CDT [facility] CPT-71358 Level 3 Est. Patient 14:26:20 CDT [facility] CPT-37533 Level 3 Est. Patient 09:38:41 CDT [facility] CPT-30374 Level 3 Est. Patient 14:45:26 CDT Edilberto tiwari [facility] CPT-39328 Level 3 Est. Patient 10:51:33 CD[facility]79 Level 3 Est. Patient 11:57:55 ELECTRONICS ENGINEERING TECHNICIAN [facility] CPT-49765 Level 3 Est. Patient 09:53:33 ELECTRONICS ENGINEERING TECHNICIAN Edilberto tiwari [facility] CPT-48191 Level 3 Est. Patient 14:42:54 ELECTRONICS ENGINEERING TECHNICIAN Abhinav Galvan MD [facility] CPT-58974 Level 3 Est. Patient 15:10:02 CDT Janak Stevenamira MCGILL [facility] CPT-67446 Level 3 Est. Patient 15:20:20 CDT Theo dennis MD [facility] CPT-95295 Level 2 Est. Patient 14:08:57 CDT Kalpesh goins MD [facility] CPT-69410 Level 3 Est. Patient 13:56:19 CDT Abdirahman Rios MD [facility] CPT-57719 Level 3 Est. Patient 13:59:37 CDT Abdirahman Rios MD [facility] CPT-58513 Level 2 Est. Patient 14:44:59 CDT Kalpesh goins MD [facility] CPT-40485 Level 3 Est. Patient 06:06:23 CDT Edilberto tiwari DO [facility] CPT-29755 Level 3 Est. Patient 15:23:54 CDT Abdirahman Rios MD [facility] CPT-28313 Level 3 Est. Patient 15:43:49 CDT Abdirahman Rios MD [facility] CPT-63385 Level 3 Est. Patient 12:46:47 ELECTRONICS ENGINEERING TECHNICIAN Abdirahman Rios MD [facility] CPT-97110 Level 3 Est. Patient 08:13:35 ELECTRONICS ENGINEERING TECHNICIAN Abdirahman Rios MD [facility] CPT-52445 Level 2 Est. Patient 09:36:42 ELECTRONICS ENGINEERING TECHNICIAN Abdirahman Rios MD [facility] CPT-87447 Level 3 Est. Patient 10:56:43 CDT Abdirahman Rios MD [facility] CPT-95436 Level 3 Est. Patient 18:24:52 CDT Abdirahman Rios MD [facility] CPT-78052 Level 3 Est. Patient 13:27:22 CDT Abdirahman Rios MD [facility] Procedures Code Procedure Name Date Entry Date Standard Desc ription CPT-25822 Immunization Single Admin 16:41:53 CDT 2013 CPT-43932 Fluzone Quadrivalent Intramuscular Suspe nsion 0.5 ML 16:41:53 CDT CPT-OV Office Visit 16:39:18 CDT CPT-OV Office Visit 16:16:36 CDT CPT-OV Office Visit 15:34:48 CDT CPT-51044 Postop F/U Visit 14:50:12 CDT CPT-19057 Postop F/U Visit 14:41:10 CDT CPT-01479 Venipuncture Draw Fee 11:38:04 ELECTRONICS ENGINEERING TECHNICIAN CPT-97310 Postop F/U Visit 19:02:59 ELECTRONICS ENGINEERING TECHNICIAN CPT-39013 Postop F/U Visit 12:04:54 ELECTRONICS ENGINEERING TECHNICIAN CPT-83432 Administration single or combination vac cine inc oral 15:56:43 CDT CPT-46622 Influenza split virus > age 3 15:56:43 CDT CPT-15359 Hand comp min 3V 14:25:19 CDT CPT-45875 Postop F/U Visit 21:40:51 CDT CPT-84931 Postop F/U Visit 10:58:43 CDT CPT-54078 Administration single or combination vac cine inc oral 12:33:54 ELECTRONICS ENGINEERING TECHNICIAN CPT-89046 Influenza Preservative Free split virus >age 3 12:33:54 ELECTRONICS ENGINEERING TECHNICIAN CPT-49338 Administration single or combination vac cine inc oral 09:30:51 CDT CPT-50897 Influenza split virus > age 3 09:30:51 CDT CPT-38400 Postop F/U Visit 15:14:53 CDT CPT-25539 Postop F/U Visit 13:50:14 CDT CPT-66231 Postop F/U Visit 13:34:52 CDT CPT-OV Office Visit 16:55:03 CDT CPT-51341 Lane of cervix w bx ECC 13:32:50 CDT 10/19 CPT-J1885 Toradol 60 mg (Ketorolac) 15:31:59 CDT 2011 CPT-J1885 Toradol 60 mg (Ketorolac) 15:23:54 CDT 2011 CPT-03602 Visit 11:34:37 ELECTRONICS ENGINEERING TECHNICIAN CPT-39091 Visit 10:52:39 ELECTRONICS ENGINEERING TECHNICIAN CPT-28252 Visit 10:12:02 ELECTRONICS ENGINEERING TECHNICIAN CPT-97357 Visit 11:22:43 ELECTRONICS ENGINEERING TECHNICIAN CPT-06129 Visit 11:24:12 ELECTRONICS ENGINEERING TECHNICIAN CPT-82449 Visit 10:47:05 ELECTRONICS ENGINEERING TECHNICIAN CPT-OV Office Visit 10:26:16 ELECTRONICS ENGINEERING TECHNICIAN CPT-OV Office Visit 15:34:31 ELECTRONICS ENGINEERING TECHNICIAN CPT-10419 Visit 10:42:08 ELECTRONICS ENGINEERING TECHNICIAN CPT-91740 Visit 10:52:45 ELECTRONICS ENGINEERING TECHNICIAN CPT-000 Give Appropriate Flu Vaccine 16:56:41 CDT 2 CPT-54408 Administration single or combination vac cine inc oral 10:33:21 CDT CPT-88400 Influenza split virus > age 3 10:33:21 CDT CPT-63978 Visit 13:23:09 CDT CPT-13621 Visit 18:24:52 CDT CPT-46518 Sono OB comp > 14 weeks 12:07:49 CDT 04/07
--- OUTSIDE RECORDS SUMMARY | 2020-01-18 17:03 | XMS REPORT | Clinical Summary ---
Author Author Admin, Jeri Rashid Organization [facility] Address Unknown Phone Unavailable Allergies, Adverse [...] 1 every 4 hours as needed OXYCODONE-ACETAMINOPHEN 25515235568 Active Kalpesh Dong MD Active PROAIR HFA 108 (90 BASE) MCG/ACT AERS 2 puff q 4-6 hrs PRN 01/24 ALBUTEROL SULFATE 57914728280 No Longer Active Kalpesh Dong MD Active ALPRAZOLAM 0.5 MG TABS 1 po BID PRN Anxiety ALPRA ZOLAM 29368442507 Active Abdirahman Rios MD Active EMLA 2.5-2.5 % EXT CREA apply to skin lesion q 6 hours, prn LIDOCAINE-PRILOCAINE 59296054900 Active Hira Moser APRN Active CYCLOBENZAPRINE HCL 10 MG TABS 1 tablet by mouth three times daily as needed for muscle spasm/pain CYCLOBENZAPRINE HCL 42855652744 Active Abdirahman Rios MD Active PREDNISONE 20 MG TAB 2 tabs daily for 3 days, 1 t ab daily for 3 days, 1/2 tab daily for 2 days PREDNISONE 01049966596 No Longer Active Abdirahman Rios MD Active KEFLEX 500 MG CAP 1 po qid CEPHALEXIN 153035522 20 No Longer Active Kalpesh Dong MD Active PERCOCET 5-325 MG TAB 1 every 6 hours as needed OXYCODONE-ACETAMINOPHEN 61434378190 No Longer Active Shola MCGILL Active LC-5 LIDOCAINE 5 % CREA apply 1 time daily to affected area 2013 LIDOCAINE (ANORECTAL) 72108137891 No Longer Active Hira muniz APRN Active HYDROCODONE-ACETAMINOPHEN 5-325 MG TABS 2 tablets by m outh every 8 hours as needed for pain HYDROCODONE-ACETAMINOPHEN 30500255178 Acti ve Abdirahman Rios MD Active HYDROCODONE-ACETAMINOPHEN 10-325 MG TABS 1 by mouth ev chaka 8 hours as needed for pain HYDROCODONE-ACETAMINOPHEN 83618843155 No Longer Active Hira Moser APRN Active LORATADINE 10 MG TABS 1 tablet by mouth daily L ORATADINE 78251660228 No Longer Active Hira Moser APRN Active DIFLUCAN 150 MG TAB 1 qODay x 2 doses FLUCONAZO LE 36409137760 No Longer Active Jillina Joyzell STEAM FINISH[employer] Active CYCLOBENZAPRINE HCL 10 MG TABS 1/2 - 1 tab PO tid PRN back p ain, muscle spasm CYCLOBENZAPRINE HCL 49628306537 No Longer Active Karen herson Frazell STEAM FINISHER Active AUGMENTIN 875-125 MG TAB 1 tab by mouth twice daily with food 20 22/05/07 AMOXICILLIN-POT CLAVULANATE 31734358066 No Longer Active Loida Rios MD Active MOBIC 15 MG TABS 1 tab daily MELOXICAM 523654566 14 No Longer Active Abdirahman Rios MD Active PERCOCET 7.5-325 MG TABS 1 PO tid PRN pain OXYCODONE-ACETAMINOPHEN 94987439085 No Longer Active Abdirahman Rios MD Active LIDODERM 5 % PTCH One patch to painful area MA N. On for 12 hrs, off for 12 hrs. LIDOCAINE 62439821525 No Longer Active Abdirahman Rios MD Active PERCOCET 7.5-325 MG TABS 1 PO q 8 hrs PRN pain OXYCODONE-ACETAMINOPHEN 61016882579 No Longer Active Shola MCGILL Active HYDROCODONE-ACETAMINOPHEN 7.5-325 MG TABS 1 by mouth e very 6 hours as needed for pain HYDROCODONE-ACETAMINOPHEN 75908624229 No Longer Active Good Julian MD Active CLINDAMYCIN HCL 300 MG CAPS 1 po QID x 7 days CLINDAMYCIN HCL 79795655188 No Longer Active Abdirahman Rios MD Activ e BACTRIM DS 800-160 MG TABS 1 po BID x 7 days 5 SULFAMETHOXAZOLE-TRIMETHOPRIM 17016438116 No Longer Active Abdirahman Rios MD Active ENDOCET 10-325 MG TABS 1 q 6 hr prn OXYCODONE-ACETAMINOPHEN 50801715977 No Longer Active Abdirahman Rios MD Active IBUPROFEN 800 MG TABS 1 tid prn IBUPROFEN 454218 83724 No Longer Active Abdirahman Rios MD Active BACTRIM DS 800-160 MG TABS by mouth twice a day 11/05 SULFAMETHOXAZOLE-TRIMETHOPRIM 31050176511 No Longer Active Good Julian MD Active HYDROCODONE-ACETAMINOPHEN 7.5-325 MG TABS 1 four times a day as needed for pain HYDROCODONE-ACETAMINOPHEN 44632046543 No Longer Activ e Good Julian MD Active KEFLEX 500 MG CAP 1 tab po tid CEPHALEXIN 449389 72238 No Longer Active Matthewllina Shanti RIVAS Active IBUPROFEN 800 MG TAB 1 pill three times daily as needed for pain IBUPROFEN 56609361601 No Longer Active Kalpesh Dong MD Active PROMETHAZINE-CODEINE 6.25-10 MG/5ML SYRP 1 tsp every 6 hrs prn c ough PROMETHAZINE-CODEINE 80986143589 No Longer Active Kalpesh Carr Active HYDROCODONE-ACETAMINOPHEN 5-325 MG TABS 1 tab by mouth every 6 hours as needed HYDROCODONE-ACETAMINOPHEN 07325254387 No Longer Activ e Shola MCGILL Active CEPHALEXIN 500 MG CAPS 1 PO bid x 7 days CEPHAL EXIN 33757838785 No Longer Active Shola MCGILL Active BACTRIM DS 800-160 MG TAB 1 tab by mouth twice daily 2 TRIMETHOPRIM-SULFAMETHOXAZOLE 80763974414 No Longer Active Kalpesh Dong MD Active HYDROCODONE-ACETAMINOPHEN 5-325 MG TABS 1 PO tid PRN pain 5 HYDROCODONE-ACETAMINOPHEN 63754254788 No Longer Active Abhinav Galvan MD Active IMPLANON 68 MG IMPL IMPLANTED IN LEFT ARM ETONO GESTREL 82165007213 No Longer Active Jillina Shanti ANDRADEN Active AMOXICILLIN 500 MG TABS 2 tabs PO bid x 10 d AM OXICILLIN 67205593751 No Longer Active Kalpesh Dong MD Active LEVAQUIN 500 MG TABS 1 PO q day x 7 days LEVOFL OXACIN 06726038383 No Longer Active Shola MCGILL Active FIORICET 50-325-40 MG TABS 2 PO q 8 hrs PRN FOSTER [id number] Active Abdirahman Rios MD Active AMITRIPTYLINE HCL 25 MG TAB 1 tab by mouth daily 60 minutes before bedtime AMITRIPTYLINE HCL 17562027417 No Longer Active Shola MCGILL Active LORTAB 5 5-500 MG TABS 1/2 to 1 tablet by mouth go ry 6 hours as needed for pain HYDROCODONE-ACETAMINOPHEN 50233595785 No Longer Active Shola MCGILL Active CEPHALEXIN 500 MG TABS Take one by mouth four times daily, morning, noon, early evening and bedtime. CEPHALEXIN 31514342621 No Long er Active Hira Moser APRN Active TYLENOL/CODEINE #3 300-30 MG TAB 1-2 po q6hr PRN Pain ACETAMINOPHEN-CODEINE 59104612821 No Longer Active Edilberto Marino DO Active PRISTIQ 50 MG [id number] 1 po qd DESVENLAFAXI NE SUCCINATE 52841087133 No Longer Active Edilberto Marino DO Active PENICILLIN V POTASSIUM 500 MG TAB 1 four times a day 2 PENICILLIN V POTASSIUM 52526851092 No Longer Active Edilberto Marino DO Active DOXYCYCLINE HYCLATE 100 MG CAPS Take one (1) tablet by mouth twice a day DOXYCYCLINE HYCLATE 50690310007 No Longer Active Ronnie Galvan MD Active HYDROCODONE-ACETAMINOPHEN 5-325 MG TABS 1 po q 6hr PRN Pain 2011 HYDROCODONE-ACETAMINOPHEN 21753149318 No Longer Active Patri joan Lock RN Active BACTRIM DS 800-160 MG TAB 1 tab by mouth twice daily 2 TRIMETHOPRIM-SULFAMETHOXAZOLE 12482565603 No Longer Active Kalpesh Dong MD Active LORTAB 5 5-500 MG TABS 1/2 to 1 tablet by mouth go ry 4 hours as needed for pain HYDROCODONE-ACETAMINOPHEN 89158089940 No Longer Active Kalpesh Dong MD Active GENERESS FE 0.8-25 MG-MCG CHEW Take one by mouth daily NORETHIN-ETH ESTRADIOL-FE 69426739257 No Longer Active Kalpesh Dong MD Active HYDROCODONE-ACETAMINOPHEN 7.5-500 MG TABS 1-2 every 4 hours as needed HYDROCODONE-ACETAMINOPHEN 67421465167 No Longer Activ e aKlpesh Dong MD Active FERROUS SULFATE 325 (65 FE) MG TABS 1 tablet by mouth twice yung y FERROUS SULFATE 30695184542 No Longer Active Kalpesh Dong MD Active IBUPROFEN 600 MG TAB 1 po q6-8hr PRN IBUPROFEN 29611491278 No Longer Active Kalpesh Dong MD Active SPIRONOLACTONE 25 MG TAB 1 tablet by mouth daily 01/22 SPIRONOLACTONE 93080862424 No Longer Active Kalpesh Dong MD Acti ve HYDROCODONE-ACETAMINOPHEN 7.5-325 MG TABS 1 po QID PRN Pain 2011 HYDROCODONE-ACETAMINOPHEN 65405096491 No Longer Active Kalpesh Dong MD Active CLINDAMYCIN HCL 300 MG CAPS 1 po q6hr x 7 days CLINDAMYCIN HCL 70247036256 No Longer Active Edilberto Marino DO Active PREDNISONE 20 MG TAB 2 tabs daily for 4 days, 1 t ab daily for 4 days, 1/2 tab daily for 4 days PREDNISONE 36940931859 No Longer Active Edilberto Marino DO Active PERCOCET 5-325 MG TABS 1 tablet by mouth every 6 hours as ne eded for pain OXYCODONE-ACETAMINOPHEN 65177498910 No Longer Active Abdirahman Rios MD Active VITAMINS TABS Take one by mouth daily MV & MIN W/FE-FA TABS 94744641879 No Longer Active Abdirahman Rios MD Active LUIS 3-0.02 MG TABS 1 tablet by mouth daily as directed DROSPIRENONE-ETHINYL ESTRADIOL 46158518218 No Longer Active Abdirahman Rios MD Active LORATADINE 10 MG TABS 1 tablet by mouth daily L ORATADINE 41729997898 No Longer Active Kalpesh Dong MD Active HYDROCODONE-ACETAMINOPHEN 5-325 MG TABS 1 po q 6hr PRN Pain 2010 HYDROCODONE-ACETAMINOPHEN 50651347801 No Longer Active Edilberto Marino DO Active BACTRIM DS 800-160 MG TAB 1 tab by mouth twice daily 2 TRIMETHOPRIM-SULFAMETHOXAZOLE 61010826792 No Longer Active Abdirahman Rios MD Active 28-0.8 MG TABS Take one by mouth daily 09/20 VIT-FE FUMARATE-FA 67581314603 No Longer Active Abdirahman Rios MD Active CIPRO 500 MG TAB 1 tablet by mouth twice daily CIPROFLOXACIN HCL 80154459427 No Longer Active Abdirahman Rios MD Active BENADRYL 25 MG CAP 1 po q8hr PRN Congestion DIPHENHYDRAMINE HCL 27685490357 No Longer Active Abdirahman Rios MD Active ZOLOFT 50 MG TAB 1 po qd SERTRALINE HCL 297932 69963 No Longer Active Abdirahman Rios MD Active AMOXICILLIN 875 MG TABS 1 tab by mouth twice daily 201 08/09/13 AMOXICILLIN 12007355640 No Longer Active Abdirahman Rios MD Activ e AMOXICILLIN 875 MG TABS 1 tab by mouth twice daily 201 07/19/27 AMOXICILLIN 32249161322 No Longer Active Abdirahman Rios MD Activ e BACTRIM DS 800-160 MG TAB 2 tab by mouth twice daily 2 TRIMETHOPRIM-SULFAMETHOXAZOLE 31606195907 No Longer Active Abdirahman Rios MD Active KEFLEX 500 MG CAP 1 po tid x 10 days CEPHALEXIN 80826923201 No Longer Active Abdirahman Rios MD Active AMOXICILLIN 875 MG TABS 1 tab by mouth twice daily 201 07/18/07 AMOXICILLIN 75599254280 No Longer Active Abdirahman Rios MD Activ e BACTRIM DS 800-160 MG TAB 2 tab by mouth twice daily 2 BACTRIM DS 800-160 MG TAB TRIMETHOPRIM-SULFAMETHOXAZOLE Inactive ZOLOFT 50 MG TAB 1 po qd ZOLOFT 50 MG TAB 3129 41 SERTRALINE HCL Inactive BENADRYL 25 MG CAP 1 po q8hr PRN Congestion BENADRYL 25 MG CAP 3225802 DIPHENHYDRAMINE HCL Inactive 28-0.8 MG TABS Take one by mouth daily 09/20 28-0.8 MG TABS VIT-FE FUMARATE-FA Inactive HYDROCODONE-ACETAMINOPHEN 5-325 MG TABS 1 po q 6hr PRN Pain 2010 HYDROCODONE-ACETAMINOPHEN 5-325 MG TABS 123062 HYDROCODONE-ACETAMINOPHEN Inactive LORATADINE 10 MG TABS 1 tablet by mouth daily LORATADINE 10 MG TABS 907852 LORATADINE Inactive LUIS 3-0.02 MG TABS 1 tablet by mouth daily as directed LUIS 3-0.02 MG TABS DROSPIRENONE-ETHINYL ESTRADIOL Inactive VITAMINS TABS Take one by mouth daily VITAMINS TABS MV & MIN W/FE-FA TABS Inactive PERCOCET 5-325 MG TABS 1 tablet by mouth every 6 hours as ne eded for pain PERCOCET 5-325 MG TABS 0266666 OXYCODONE-ACETAMIN OPHEN Inactive PREDNISONE 20 MG TAB 2 tabs daily for 4 days, 1 t ab daily for 4 days, 1/2 tab daily for 4 days PREDNISONE 20 MG TAB 004319 PREDNISON E Inactive CLINDAMYCIN HCL 300 MG CAPS 1 po q6hr x 7 days CLINDAMYCIN HCL 300 MG CAPS 309188 CLINDAMYCIN HCL Inactive HYDROCODONE-ACETAMINOPHEN 7.5-325 MG TABS 1 po QID PRN Pain 2011 HYDROCODONE-ACETAMINOPHEN 7.5-325 MG TABS 342292 HYDROCODONE-ACETAMINOPHEN Inactive SPIRONOLACTONE 25 MG TAB 1 tablet by mouth daily 01/22 SPIRONOLACTONE 25 MG TAB 324721 SPIRONOLACTONE Inactive IBUPROFEN 600 MG TAB 1 po q6-8hr PRN IBUPROFEN 600 MG TAB 631924 IBUPROFEN Inactive FERROUS SULFATE 325 (65 FE) MG TABS 1 tablet by mouth twice yung y FERROUS SULFATE 325 (65 FE) MG TABS 855402 FERROUS SULF ATE Inactive HYDROCODONE-ACETAMINOPHEN 7.5-500 MG [...] PRN Pain 2011 HYDROCODONE-ACETAMINOPHEN 5-325 MG TABS 579946 HYDROCODONE-ACETAMINOPHEN Inactive DOXYCYCLINE HYCLATE 100 MG CAPS Take one (1) tablet by mouth twice a day DOXYCYCLINE HYCLATE 100 MG CAPS 487660 DOXYCYCLINE HYCLATE Inactive PENICILLIN V POTASSIUM 500 MG TAB 1 four times a day 2 PENICILLIN V POTASSIUM 500 MG TAB 882410 PENICILLIN V POTASSIUM Sod ctive PRISTIQ 50 MG [id number]-TGT 1 po qd PRISTIQ 50 MG [id number]-[id number] DESVENLAFAXINE SUCCINATE Inactive TYLENOL/CODEINE #3 300-30 MG TAB 1-2 po q6hr PRN Pain TYLENOL/CODEINE #3 300-30 MG TAB 742521 ACETAMINOPHEN-CODEINE Inact krishna CEPHALEXIN 500 MG TABS Take one by mouth four times daily, morning, noon, early evening and bedtime. CEPHALEXIN 500 MG TABS 141964 CEPHALEXIN Inactive LORTAB 5 5-500 MG TABS 1/2 to 1 tablet by mouth go ry 6 hours as needed for pain LORTAB 5 5-500 MG TABS HYDROCODONE-A CETAMINOPHEN Inactive AMITRIPTYLINE HCL 25 MG TAB 1 tab by mouth daily 60 minutes before bedtime AMITRIPTYLINE HCL 25 MG TAB 613005 AMITRIPTYLINE HCL Inactive AMOXICILLIN 500 MG TABS 2 tabs PO bid x 10 d 7 AMOXICILLIN 500 MG TABS 452394 AMOXICILLIN Inactive IMPLANON 68 MG IMPL IMPLANTED IN LEFT ARM IMPLANON 68 MG IMPL ETONOGESTREL Inactive HYDROCODONE-ACETAMINOPHEN 5-325 MG TABS 1 PO tid PRN pain 5 HYDROCODONE-ACETAMINOPHEN 5-325 MG TABS 137477 HYDROCODONE-ACETAMIN OPHEN Inactive BACTRIM DS 800-160 MG TAB 1 tab by mouth twice daily 2 BACTRIM DS 800-160 MG TAB TRIMETHOPRIM-SULFAMETHOXAZOLE Inac tive CEPHALEXIN 500 MG CAPS 1 PO bid x 7 days CEPHALEXIN 500 MG CAPS 731506 CEPHALEXIN Inactive HYDROCODONE-ACETAMINOPHEN 5-325 MG TABS 1 tab by mouth every 6 hours as needed HYDROCODONE-ACETAMINOPHEN 5-325 MG TABS 603753 HYDROCODONE-ACETAMINOPHEN Inactive PROMETHAZINE-CODEINE 6.25-10 MG/5ML SYRP 1 tsp every 6 hrs prn c ough PROMETHAZINE-CODEINE 6.25-10 MG/5ML SYRP 664099 PROMETH AZINE-CODEINE Inactive IBUPROFEN 800 MG TAB 1 pill three times daily as needed for pain IBUPROFEN 800 MG TAB 281855 IBUPROFEN Inactive KEFLEX 500 MG CAP 1 tab po tid KEFLEX 500 MG CAP 429037 CEPHALEXIN Inactive HYDROCODONE-ACETAMINOPHEN 7.5-325 MG TABS 1 four times a day as needed for pain HYDROCODONE-ACETAMINOPHEN 7.5-325 MG TABS 472108 HYDROCODONE-ACETAMINOPHEN Inactive BACTRIM DS 800-160 MG TABS by mouth twice a day 11/05 BACTRIM DS 800-160 MG TABS SULFAMETHOXAZOLE-TRIMETHOPRIM Inactive IBUPROFEN 800 MG TABS 1 tid prn IBUPROFEN 800 MG TABS 939740 IBUPROFEN Inactive ENDOCET 10-325 MG TABS 1 q 6 hr prn ENDOC ET 10-325 MG TABS 7787731 OXYCODONE-ACETAMINOPHEN Inactive HYDROCODONE-ACETAMINOPHEN 7.5-325 MG TABS 1 by mouth e very 6 hours as needed for pain HYDROCODONE-ACETAMINOPHEN 7.5-325 MG TABS 462586 HYDROCODONE-ACETAMINOPHEN Inactive PERCOCET 7.5-325 MG TABS 1 PO q 8 hrs PRN pain PERCOCET 7.5-325 MG TABS 5900731 OXYCODONE-ACETAMINOPHEN Inactive LIDODERM 5 % PTCH One patch to painful area MA N. On for 12 hrs, off for 12 hrs. LIDODERM 5 % PTCH 0809187 LIDOCAINE Inactiv e PERCOCET 7.5-325 MG TABS 1 PO tid PRN pain PERCOCET 7.5- 325 MG TABS 6748363 OXYCODONE-ACETAMINOPHEN Inactive MOBIC 15 MG TABS 1 tab daily MOBIC 15 MG TABS 15 2695 MELOXICAM Inactive CYCLOBENZAPRINE HCL 10 MG TABS 1/2 - 1 tab PO tid PRN back p ain, muscle spasm CYCLOBENZAPRINE HCL 10 MG TABS 914925 CYCLOBENZA JOSEPH HCL Inactive LORATADINE 10 MG TABS 1 tablet by mouth daily LORATADINE 10 MG TABS 079922 LORATADINE Inactive HYDROCODONE-ACETAMINOPHEN 10-325 MG TABS 1 by mouth ev chaka 8 hours as needed for pain HYDROCODONE-ACETAMINOPHEN 10-325 MG TABS 828154 HYDROCODONE-ACETAMINOPHEN Inactive LC-5 LIDOCAINE 5 % CREA apply 1 time daily to affected area 2013 LC-5 LIDOCAINE 5 % CREA LIDOCAINE (ANORECTAL) In active PERCOCET 5-325 MG TAB 1 every 6 hours as needed PERCOCET 5-325 MG TAB 1260712 OXYCODONE-ACETAMINOPHEN Inactive KEFLEX 500 MG CAP 1 po qid KEFLEX 500 MG CAP 30 9114 CEPHALEXIN Inactive PROAIR HFA 108 (90 BASE) MCG/ACT AERS 2 puff q 4-6 hrs PRN 01/24 PROAIR HFA 108 (90 BASE) MCG/ACT AERS ALBUTEROL SULFATE Inactive AMOXICILLIN 875 MG TABS 1 tab by mouth twice daily 201 07/18/07 AMOXICILLIN 875 MG TABS 562772 AMOXICILLIN Inactive KEFLEX 500 MG CAP 1 po tid x 10 days KEFLEX 500 MG CAP 078584 CEPHALEXIN Inactive AMOXICILLIN 875 MG TABS 1 tab by mouth twice daily 201 07/19/27 AMOXICILLIN 875 MG TABS 362741 AMOXICILLIN Inactive AMOXICILLIN 875 MG TABS 1 tab by mouth twice daily 201 08/09/13 AMOXICILLIN 875 MG TABS 899477 AMOXICILLIN Inactive CIPRO 500 MG TAB 1 tablet by mouth twice daily CIPRO 500 MG TAB 471048 CIPROFLOXACIN HCL Inactive BACTRIM DS 800-160 MG TAB 1 tab by mouth twice daily 2 BACTRIM DS 800-160 MG TAB TRIMETHOPRIM-SULFAMETHOXAZOLE Inac tive LEVAQUIN 500 MG TABS 1 PO q day x 7 days LEVAQUIN 500 MG TABS 652071 LEVOFLOXACIN Inactive CLINDAMYCIN HCL 300 MG CAPS 1 po QID x 7 days CLINDAMYCIN HCL 300 MG CAPS 341834 CLINDAMYCIN HCL Inactive AUGMENTIN 875-125 MG TAB 1 tab by mouth twice daily with food 22/05/07 AUGMENTIN 875-125 MG TAB 778282 AMOXICILLIN-POT CLAVULA [place] Inactive DIFLUCAN 150 MG TAB 1 qODay x 2 doses DIFLUCAN 150 MG TAB 037674 FLUCONAZOLE Inactive PREDNISONE 20 MG TAB 2 tabs daily for 3 days, 1 t ab daily for 3 days, 1/2 tab daily for 2 days PREDNISONE 20 MG TAB 519698 PREDNISON E Inactive Advance Directives Directive Description Start Date PERMISSION TO SHARE Immunizations Vaccine Administration Date Value Standard Alf cription Seasonal influenza vaccine, injectable, containing preservative, for > 3 years old (Afluria, FluLaval, Fluzone, Fluvirin, Fluarix, Agriflu(>= 18 yo)) Fluzone (>3 yrs.) [[id number]] Influenza, seasonal, inject able Seasonal influenza vaccine, injectable, preservative free, for > 3 years old (Afluria, FluLaval, Fluzone, Fluvirin, Fluarix, Agriflu(>= 18 yo)) Fluzone preservative free (>3 yrs.) [[id number]] Influenza, seasonal, injectable, preservative free Seasonal influenza vaccine, injectable, containing preservative, for > 3 years old (Afluria, FluLaval, Fluzone, Fluvirin, Fluarix, Agriflu(>= 18 yo)) Fluzone (>3 yrs.) [[id number]] Influenza, seasonal, inject able Seasonal influenza vaccine, injectable, containing preservative, for > 3 years old (Afluria, FluLaval, Fluzone, Fluvirin, Fluarix, Agriflu(>= 18 yo)) Fluzone (>3 yrs.) [[id number]] Influenza, seasonal, inject able dT (Diphtheria and [...] negative Encounters Code Encounter Date Provider Facility CPT-12840 Level 2 Est. Patient 07:49:32 CDT Kalpesh goins MD [facility] CPT-84394 Level 3 New Patient 15:47:11 GUEST RELATIONS EXECUTIVE Bj huber MD [facility] CPT-00017 Level 4 Est. Patient 14:37:38 GUEST RELATIONS EXECUTIVE Abdirahman Rios MD [facility] CPT-46081 Level 2 Est. Patient 13:32:17 GUEST RELATIONS EXECUTIVE Kalpesh goins MD [facility] CPT-81182 Level 3 Est. Patient 17:32:57 GUEST RELATIONS EXECUTIVE Edilberto tiwari DO [facility] CPT-88873 Level 3 Est. Patient 17:22:33 GUEST RELATIONS EXECUTIVE Edilberto tiwari [facility] CPT-35998 Level 2 Est. Patient 16:57:09 GUEST RELATIONS EXECUTIVE Kalpesh goins MD [facility] CPT-34305 Level 3 Est. Patient 14:03:08 GUEST RELATIONS EXECUTIVE Abdirahman Rios MD [facility] CPT-66936 Level 3 Est. Patient 18:12:34 CDT Shola Wright [facility] CPT-53019 Level 3 Est. Patient 19:34:46 CDT Shola Wright [facility] CPT-71321 Level 3 Est. Patient 14:19:37 CDT Abdirahman Rios MD [facility] CPT-31170 Level 3 Est. Patient 14:11:58 CDT Kalpesh goins MD [facility]-11771 Level 3 Est. Patient 16:50:00 CDT Michelle MERCADO [facility] CPT-81943 Level 3 Est. Patient 17:11:32 GUEST RELATIONS EXECUTIVE Brandie bates MD PhD [facility] CPT-40311 Level 3 Est. Patient 16:31:47 GUEST RELATIONS EXECUTIVE Shola Wright [facility] CPT-05461 Level 3 Est. Patient 17:51:10 GUEST RELATIONS EXECUTIVE Abhinav Galvan MD [facility] CPT-00825 Level 4 Est. Patient 12:54:56 GUEST RELATIONS EXECUTIVE Kalpesh goins MD [facility]-11315 Level 4 Est. Patient 12:53:56 GUEST RELATIONS EXECUTIVE Kalpesh goins MD [facility]-73895 Level 3 Est. Patient 17:56:58 CDT Shola Wright [facility] CPT-47033 Level 3 Est. Patient 14:26:20 CDT Janak butcher [facility] CPT-48497 Level 3 Est. Patient 09:38:41 CDT Shola Thao Adriana [facility] CPT-53212 Level 3 Est. Patient 14:45:26 CDT Edilberto tiwari [facility] CPT-46346 Level 3 Est. Patient 10:51:33 [facility] Level 3 Est. Patient 11:57:55 GUEST RELATIONS EXECUTIVE Shola Thao Adriana [facility] CPT-63821 Level 3 Est. Patient 09:53:33 GUEST RELATIONS EXECUTIVE Edilberto tiwari [facility] CPT-22105 Level 3 Est. Patient 14:42:54 GUEST RELATIONS EXECUTIVE Abhinav Galvan MD [facility] CPT-17120 Level 3 Est. Patient 15:10:02 CDT Janak butcher [facility] CPT-49735 Level 3 Est. Patient 15:20:20 CDT Theo dennis MD [facility] CPT-11362 Level 2 Est. Patient 14:08:57 CDT Kalpesh goins MD [facility] CPT-30975 Level 3 Est. Patient 13:56:19 CDT Abdirahman Rios MD [facility] CPT-17496 Level 3 Est. Patient 13:59:37 CDT Abdirahman Rios MD [facility] CPT-29401 Level 2 Est. Patient 14:44:59 CDT Kalpesh goins MD [facility] CPT-69983 Level 3 Est. Patient 06:06:23 CDT Edilberto tiwari [facility] CPT-65398 Level 3 Est. Patient 15:23:54 CDT Abdirahman Rios MD [facility] CPT-19018 Level 3 Est. Patient 15:43:49 CDT Abdirahman Rios MD [facility] CPT-20168 Level 3 Est. Patient 12:46:47 GUEST RELATIONS EXECUTIVE Abdirahman Rios MD [facility] CPT-72446 Level 3 Est. Patient 08:13:35 GUEST RELATIONS EXECUTIVE Abdirahman Rios MD [facility] CPT-56119 Level 2 Est. Patient 09:36:42 GUEST RELATIONS EXECUTIVE Abdirahman Rios MD [facility] CPT-61884 Level 3 Est. Patient 10:56:43 CDT Abdirahman Rios MD [facility] CPT-03539 Level 3 Est. Patient 18:24:52 CDT Abdirahman Rios MD [facility] CPT-43313 Level 3 Est. Patient 13:27:22 CDT Abdirahman Rios MD [facility] Procedures Code Procedure Name Date Entry Date Standard Desc ription CPT-86064 Postop F/U Visit 11:29:00 GUEST RELATIONS EXECUTIVE CPT-J0696 Rocephin 1000 mg (Ceftriaxone) 17:22:33 GUEST RELATIONS EXECUTIVE CPT-15906 Postop F/U Visit 18:41:07 GUEST RELATIONS EXECUTIVE CPT-88717 Postop F/U Visit 08:19:08 GUEST RELATIONS EXECUTIVE CPT-21538 Immunization Single Admin 16:41:53 CDT 2013 CPT-76948 Fluzone Quadrivalent Intramuscular Suspe nsion 0.5 ML 16:41:53 CDT CPT-OV Office Visit 16:39:18 CDT CPT-OV Office Visit 16:16:36 CDT CPT-OV Office Visit 15:34:48 CDT CPT-49272 Postop F/U Visit 14:50:12 CDT CPT-53370 Postop F/U Visit 14:41:10 CDT CPT-10119 Venipuncture Draw Fee 11:38:04 GUEST RELATIONS EXECUTIVE CPT-24315 Postop F/U Visit 19:02:59 GUEST RELATIONS EXECUTIVE CPT-66164 Postop F/U Visit 12:04:54 GUEST RELATIONS EXECUTIVE CPT-95323 Administration single or combination vac cine inc oral 15:56:43 CDT CPT-98495 Influenza split virus > age 3 15:56:43 CDT CPT-06924 Hand comp min 3V 14:25:19 CDT CPT-31452 Postop F/U Visit 21:40:51 CDT CPT-05055 Postop F/U Visit 10:58:43 CDT CPT-95293 Administration single or combination vac cine inc oral 12:33:54 [employer] EXECUTIVE CPT-15348 Influenza Preservative Free split virus >age 3 12:33:54 [employer]ATIONS EXECUTIVE CPT-36143 Administration single or combination vac cine inc oral 09:30:51 CDT CPT-67070 Influenza split virus > age 3 09:30:51 CDT CPT-58433 Postop F/U Visit 15:14:53 CDT CPT-47062 Postop F/U Visit 13:50:14 CDT CPT-78433 Postop F/U Visit 13:34:52 CDT CPT-OV Office Visit 16:55:03 CDT CPT-54819 [place] of cervix w bx ECC 13:32:50 CDT 10/19 CPT-J1885 Toradol 60 mg (Ketorolac) 15:31:59 CDT 2011 CPT-J1885 Toradol 60 mg (Ketorolac) 15:23:54 CDT 2011 CPT-57018 Visit 11:34:37 [employer] EXECUTIVE CPT-92671 Visit 10:52:39 [employer]ATIONS EXECUTIVE CPT-67958 Visit 10:12:02 [employer] EXECUTIVE CPT-13829 Visit 11:22:43 [employer] EXECUTIVE CPT-92527 Visit 11:24:12 [employer] EXECUTIVE CPT-13592 Visit 10:47:05 [employer]ATIONS EXECUTIVE CPT-OV Office Visit 10:26:16 [employer] EXECUTIVE CPT-OV Office Visit 15:34:31 [employer] EXEC[employer]IVE CPT-48787 Visit 10:42:08 [employer] EXECUTIVE CPT-15740 Visit 10:52:45 [employer] EXECUTIVE CPT-000 Give Appropriate Flu Vaccine 16:56:41 CDT 2 CPT-80517 Administration single or combination vac cine inc oral 10:33:21 CDT CPT-47990 Influenza split virus > age 3 10:33:21 CDT CPT-84477 Visit 13:23:09 CDT CPT-81358 Visit 18:24:52 CDT CPT-71247 [facility] comp > 14 weeks 12:07:49 CDT 04/07
--- OUTSIDE RECORDS SUMMARY | 2020-01-18 17:04 | XMS REPORT | Clinical Summary ---
Author Author Admin, Jeri Rashid Organization [facility] Address Unknown Phone Unavailable Allergies, Adverse [...] Hidradenitis 705.83 Active Hira Moser APRN Hidradenitis LARGE FOR GESTATIONAL AGE ICD-656.60 Inactive Abdirahman [...] Abdirahman Rios MD VAGINAL DISCHARGE ICD-623.5 Inactive Abdiarhman sanchez MD URETHRITIS ICD-597.80 Inactive Good melchor [...] ICD-V17.5 Inactive Moni Julian MD DEPRESSION ICD-311 Jose M sierra [...] 1 every 6 hours as needed OXYCODONE-ACETAMINOPHEN [id number] No Longer Active Shola MCGILL Active LC-5 LIDOCAINE 5 % CREA apply 1 time daily to affected area 2013 LIDOCAINE (ANORECTAL) 05617937513 No Longer Active Hira muniz SANITARIAN INSPECTOR Active HYDROCODONE-ACETAMINOPHEN 5-325 MG TABS 2 tablets by m outh every 8 hours as needed for pain HYDROCODONE-ACETAMINOPHEN 25215403978 Acti ve Shola MCGILL Active HYDROCODONE-ACETAMINOPHEN 10-325 MG TABS 1 by mouth ev chaka 8 hours as needed for pain HYDROCODONE-ACETAMINOPHEN 72115612064 No Longer Active Jillina Frazell SANITARIAN INSPECTOR Active LORATADINE 10 MG TABS 1 tablet by mouth daily L ORATADINE 92413961728 No Longer Active Jillina Frazell SANITARIAN INSPECTOR Active DIFLUCAN 150 MG TAB 1 qODay x 2 doses FLUCONAZO LE 83072818657 No Longer Active Jillina Frazell SANITARIAN INSPECTOR Active CYCLOBENZAPRINE HCL 10 MG TABS 1/2 - 1 tab PO tid PRN back p ain, muscle spasm CYCLOBENZAPRINE HCL 43805424536 No Longer Active Karen herson Frazell SANITARIAN INSPECTOR Active AUGMENTIN 875-125 MG TAB 1 tab by mouth twice daily with food 20 22/05/07 AMOXICILLIN-POT CLAVULANATE 99300018392 No Longer Active Loida Rios MD Active MOBIC 15 MG TABS 1 tab daily MELOXICAM 575380096 14 No Longer Active Abdirahman Rios MD Active PERCOCET 7.5-325 MG TABS 1 PO tid PRN pain OXYCODONE-ACETAMINOPHEN 70129042314 No Longer Active Abdirahman Rios MD Active LIDODERM 5 % PTCH One patch to painful area [place] N. On for 12 hrs, off for 12 hrs. LIDOCAINE 12209185320 No Longer Active Abdirahman Rios MD Active PERCOCET 7.5-325 MG TABS 1 PO q 8 hrs PRN pain OXYCODONE-ACETAMINOPHEN 61149529423 No Longer Active Shola MCGILL Active HYDROCODONE-ACETAMINOPHEN 7.5-325 MG TABS 1 by mouth e very 6 hours as needed for pain HYDROCODONE-ACETAMINOPHEN 26885021049 No Longer Active Good Julian MD Active CLINDAMYCIN HCL 300 MG CAPS 1 po QID x 7 days CLINDAMYCIN HCL 09928821515 No Longer Active Abdirahman Rios MD Activ e BACTRIM DS 800-160 MG TABS 1 po BID x 7 days 5 SULFAMETHOXAZOLE-TRIMETHOPRIM 52469379573 No Longer Active Abdirahman Rios MD Active ENDOCET 10-325 MG TABS 1 q 6 hr prn OXYCODONE-ACETAMINOPHEN 23735028603 No Longer Active Abdirahman Rios MD Active IBUPROFEN 800 MG TABS 1 tid prn IBUPROFEN 375032 80530 No Longer Active Abdirahman Rios MD Active BACTRIM DS 800-160 MG TABS by mouth twice a day 11/05 SULFAMETHOXAZOLE-TRIMETHOPRIM 77143794879 No Longer Active Good Julian MD Active HYDROCODONE-ACETAMINOPHEN 7.5-325 MG TABS 1 four times a day as needed for pain HYDROCODONE-ACETAMINOPHEN 46080154387 No Longer Activ e Good Julian MD Active KEFLEX 500 MG CAP 1 tab po tid CEPHALEXIN 695217 02367 No Longer Active Hira Moser APRN Active IBUPROFEN 800 MG TAB 1 pill three times daily as needed for pain IBUPROFEN 19788172938 No Longer Active Kalpesh Dong MD Active PROMETHAZINE-CODEINE 6.25-10 MG/5ML SYRP 1 tsp every 6 hrs prn c ough PROMETHAZINE-CODEINE 41215552015 No Longer Active Kalpesh Carr Active ALPRAZOLAM 0.5 MG TABS 1 PO bid PRN ALPRAZOLAM 633715 56353 Active Edilberto Marino DO Active HYDROCODONE-ACETAMINOPHEN 5-325 MG TABS 1 tab by mouth every 6 hours as needed HYDROCODONE-ACETAMINOPHEN 23992129552 No Longer Activ e Shola MCGILL Active CEPHALEXIN 500 MG CAPS 1 PO bid x 7 days CEPHAL EXIN 74048320457 No Longer Active Shola MCGILL Active BACTRIM DS 800-160 MG TAB 1 tab by mouth twice daily 2 TRIMETHOPRIM-SULFAMETHOXAZOLE 89574769847 No Longer Active Kalpesh Dong MD Active HYDROCODONE-ACETAMINOPHEN 5-325 MG TABS 1 PO tid PRN pain 5 HYDROCODONE-ACETAMINOPHEN 08541484681 No Longer Active Abhinav Galvan MD Active IMPLANON 68 MG IMPL IMPLANTED IN LEFT ARM ETONO GESTREL 49729517071 No Longer Active 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 SANITARIAN INSPECTOR Active AMOXICILLIN 500 MG TABS 2 tabs PO bid x 10 d AM OXICILLIN 41299194323 No Longer Active Kalpesh Dong MD Active LEVAQUIN 500 MG TABS 1 PO q day x 7 days LEVOFL OXACIN 50038956952 No Longer Active Shola MCGILL Active PROAIR HFA 108 (90 BASE) MCG/ACT AERS 2 puff q 4-6 hrs PRN ALBUTEROL SULFATE 38316353602 Active Edilberto Marino DO Active FIORICET 50-325-40 MG TABS 2 PO q 8 hrs PRN FOSTER [id number] Active Shola MCGILL Active AMITRIPTYLINE HCL 25 MG TAB 1 tab by mouth daily 60 minutes before bedtime AMITRIPTYLINE HCL 69824463496 No Longer Active Shola MCGILL Active LORTAB 5 5-500 MG TABS 1/2 to 1 tablet by mouth go ry 6 hours as needed for pain HYDROCODONE-ACETAMINOPHEN 33692531269 No Longer Active Shola MCGILL Active CEPHALEXIN 500 MG TABS Take one by mouth four times daily, morning, noon, early evening and bedtime. CEPHALEXIN 52928416767 No Long er Active Hira Joyjanee SANITARIAN INSPECTOR Active TYLENOL/CODEINE #3 300-30 MG TAB 1-2 po q6hr PRN Pain ACETAMINOPHEN-CODEINE 08169557457 No Longer Active Edilberto Marino DO Active PRISTIQ 50 MG [id number] 1 po qd DESVENLAFAXI NE SUCCINATE 89860619587 No Longer Active Edilberto Marino DO Active PENICILLIN V POTASSIUM 500 MG TAB 1 four times a day 2 PENICILLIN V POTASSIUM 55327338031 No Longer Active Edilberto Marino DO Active DOXYCYCLINE HYCLATE 100 MG CAPS Take one (1) tablet by mouth twice a day DOXYCYCLINE HYCLATE 56618456194 No Longer Active Ronnie Galvan MD Active HYDROCODONE-ACETAMINOPHEN 5-325 MG TABS 1 po q 6hr PRN Pain 2011 HYDROCODONE-ACETAMINOPHEN 41186372500 No Longer Active Patri joan Perez RN Active BACTRIM DS 800-160 MG TAB 1 tab by mouth twice daily 2 TRIMETHOPRIM-SULFAMETHOXAZOLE 92559870602 No Longer Active Kalpesh Dong MD Active LORTAB 5 5-500 MG TABS 1/2 to 1 tablet by mouth go ry 4 hours as needed for pain HYDROCODONE-ACETAMINOPHEN 73813914805 No Longer Active Kalpesh Dong MD Active GENERESS FE 0.8-25 MG-MCG CHEW Take one by mouth daily NORETHIN-ETH ESTRADIOL-FE 95869736884 No Longer Active Kalpesh Dong MD Active HYDROCODONE-ACETAMINOPHEN 7.5-500 MG TABS 1-2 every 4 hours as needed HYDROCODONE-ACETAMINOPHEN 63384289246 No Longer Activ e Kalpesh Dong MD Active FERROUS SULFATE 325 (65 FE) MG TABS 1 tablet by mouth twice yung y FERROUS SULFATE 28809650267 No Longer Active Kalpesh Dong MD Active IBUPROFEN 600 MG TAB 1 po q6-8hr PRN IBUPROFEN 52563756330 No Longer Active Kalpesh Dong MD Active SPIRONOLACTONE 25 MG TAB 1 tablet by mouth daily 01/22 SPIRONOLACTONE 80151249489 No Longer Active Kalpesh Dong MD Acti ve HYDROCODONE-ACETAMINOPHEN 7.5-325 MG TABS 1 po QID PRN Pain 2011 HYDROCODONE-ACETAMINOPHEN 62326125350 No Longer Active Kalpesh Dong MD Active CLINDAMYCIN HCL 300 MG CAPS 1 po q6hr x 7 days CLINDAMYCIN HCL 44345185014 No Longer Active Edilberto Marino DO Active PREDNISONE 20 MG TAB 2 tabs daily for 4 days, 1 t ab daily for 4 days, 1/2 tab daily for 4 days PREDNISONE 27478710937 No Longer Active Edilberto Marino DO Active PERCOCET 5-325 MG TABS 1 tablet by mouth every 6 hours as ne eded for pain OXYCODONE-ACETAMINOPHEN 11922696018 No Longer Active Abdirahman Rios MD Active VITAMINS TABS Take one by mouth daily MV & MIN W/FE-FA TABS 46084368902 No Longer Active Abdirahman Rios MD Active LUIS 3-0.02 MG TABS 1 tablet by mouth daily as directed DROSPIRENONE-ETHINYL ESTRADIOL 53069198465 No Longer Active Abdirahman Rios MD Active LORATADINE 10 MG TABS 1 tablet by mouth daily L ORATADINE 14782880109 No Longer Active Kalpesh Dong MD Active HYDROCODONE-ACETAMINOPHEN 5-325 MG TABS 1 po q 6hr PRN Pain 2010 HYDROCODONE-ACETAMINOPHEN 72458663526 No Longer Active Edilberto Marino DO Active BACTRIM DS 800-160 MG TAB 1 tab by mouth twice daily 2 TRIMETHOPRIM-SULFAMETHOXAZOLE 28249890697 No Longer Active Abdirahman Rios MD Active 28-0.8 MG TABS Take one by mouth daily 09/20 VIT-FE FUMARATE-FA 06257573949 No Longer Active Abdirahman Rios MD Active CIPRO 500 MG TAB 1 tablet by mouth twice daily CIPROFLOXACIN HCL 14875534695 No Longer Active Abdirahman Rios MD Active BENADRYL 25 MG CAP 1 po q8hr PRN Congestion DIPHENHYDRAMINE HCL 81002232502 No Longer Active Abdirahman Rios MD Active ZOLOFT 50 MG TAB 1 po qd SERTRALINE HCL 540409 23001 No Longer Active Abdirahman Rios MD Active AMOXICILLIN 875 MG TABS 1 tab by mouth twice daily 201 08/09/13 AMOXICILLIN 54757871337 No Longer Active Abdirahman Rios MD Activ e AMOXICILLIN 875 MG TABS 1 tab by mouth twice daily 201 07/19/27 AMOXICILLIN 27385297619 No Longer Active Abdirahman Rios MD Activ e BACTRIM DS 800-160 MG TAB 2 tab by mouth twice daily 2 TRIMETHOPRIM-SULFAMETHOXAZOLE 80380428041 No Longer Active Abdirahman Rios MD Active KEFLEX 500 MG CAP 1 po tid x 10 days CEPHALEXIN 55558543747 No Longer Active Abdirahman Rios MD Active AMOXICILLIN 875 MG TABS 1 tab by mouth twice daily 201 07/18/07 AMOXICILLIN 97218464824 No Longer Active Abdirahman Rios MD Activ e BACTRIM DS 800-160 MG TAB 2 tab by mouth twice daily 2 BACTRIM DS 800-160 MG TAB TRIMETHOPRIM-SULFAMETHOXAZOLE Inactive ZOLOFT 50 MG TAB 1 po qd ZOLOFT 50 MG TAB 3129 41 SERTRALINE HCL Inactive BENADRYL 25 MG CAP 1 po q8hr PRN Congestion BENADRYL 25 MG CAP 2753740 DIPHENHYDRAMINE HCL Inactive 28-0.8 MG TABS Take one by mouth daily 09/20 28-0.8 MG TABS VIT-FE FUMARATE-FA Inactive HYDROCODONE-ACETAMINOPHEN 5-325 MG TABS 1 po q 6hr PRN Pain 2010 HYDROCODONE-ACETAMINOPHEN 5-325 MG TABS 900374 HYDROCODONE-ACETAMINOPHEN Inactive LORATADINE 10 MG TABS 1 tablet by mouth daily LORATADINE 10 MG TABS 945010 LORATADINE Inactive LUIS 3-0.02 MG TABS 1 tablet by mouth daily as directed LUIS 3-0.02 MG TABS DROSPIRENONE-ETHINYL ESTRADIOL Inactive VITAMINS TABS Take one by mouth daily VITAMINS TABS MV & MIN W/FE-FA TABS Inactive PERCOCET 5-325 MG TABS 1 tablet by mouth every 6 hours as ne eded for pain PERCOCET 5-325 MG TABS 9568074 OXYCODONE-ACETAMIN OPHEN Inactive PREDNISONE 20 MG TAB 2 tabs daily for 4 days, 1 t ab daily for 4 days, 1/2 tab daily for 4 days PREDNISONE 20 MG TAB 625304 PREDNISON E Inactive CLINDAMYCIN HCL 300 MG CAPS 1 po q6hr x 7 days CLINDAMYCIN HCL 300 MG CAPS 173901 CLINDAMYCIN HCL Inactive HYDROCODONE-ACETAMINOPHEN 7.5-325 MG TABS 1 po QID PRN Pain 2011 HYDROCODONE-ACETAMINOPHEN 7.5-325 MG TABS 499383 HYDROCODONE-ACETAMINOPHEN Inactive SPIRONOLACTONE 25 MG TAB 1 tablet by mouth daily 01/22 SPIRONOLACTONE 25 MG TAB 451966 SPIRONOLACTONE Inactive IBUPROFEN 600 MG TAB 1 po q6-8hr PRN IBUPROFEN 600 MG TAB 911096 IBUPROFEN Inactive FERROUS SULFATE 325 (65 FE) MG TABS 1 tablet by mouth twice yung y FERROUS SULFATE 325 (65 FE) MG TABS 559174 FERROUS SULF ATE Inactive HYDROCODONE-ACETAMINOPHEN 7.5-500 MG [...] PRN Pain 2011 HYDROCODONE-ACETAMINOPHEN 5-325 MG TABS 799463 HYDROCODONE-ACETAMINOPHEN Inactive DOXYCYCLINE HYCLATE 100 MG CAPS Take one (1) tablet by mouth twice a day DOXYCYCLINE HYCLATE 100 MG CAPS 170183 DOXYCYCLINE HYCLATE Inactive PENICILLIN V POTASSIUM 500 MG TAB 1 four times a day 2 PENICILLIN V POTASSIUM 500 MG TAB 176857 PENICILLIN V POTASSIUM [place] ctive PRISTIQ 50 MG [id number] 1 po qd PRISTIQ 50 MG [id number] DESVENLAFAXINE SUCCINATE Inactive TYLENOL/CODEINE #3 300-30 MG TAB 1-2 po q6hr PRN Pain TYLENOL/CODEINE #3 300-30 MG TAB 190666 ACETAMINOPHEN-CODEINE Inact krishna CEPHALEXIN 500 MG TABS Take one by mouth four times daily, morning, noon, early evening and bedtime. CEPHALEXIN 500 MG TABS 529978 CEPHALEXIN Inactive LORTAB 5 5-500 MG TABS 1/2 to 1 tablet by mouth go ry 6 hours as needed for pain LORTAB 5 5-500 MG TABS HYDROCODONE-A CETAMINOPHEN Inactive AMITRIPTYLINE HCL 25 MG TAB 1 tab by mouth daily 60 minutes before bedtime AMITRIPTYLINE HCL 25 MG TAB 566934 AMITRIPTYLINE HCL Inactive AMOXICILLIN 500 MG TABS 2 tabs PO bid x 10 d 7 AMOXICILLIN 500 MG TABS 993203 AMOXICILLIN Inactive IMPLANON 68 MG IMPL IMPLANTED IN LEFT ARM IMPLANON 68 MG IMPL ETONOGESTREL Inactive HYDROCODONE-ACETAMINOPHEN 5-325 MG TABS 1 PO tid PRN pain 5 HYDROCODONE-ACETAMINOPHEN 5-325 MG TABS 283999 HYDROCODONE-ACETAMIN OPHEN Inactive BACTRIM DS 800-160 MG TAB 1 tab by mouth twice daily 2 BACTRIM DS 800-160 MG TAB TRIMETHOPRIM-SULFAMETHOXAZOLE Inac tive CEPHALEXIN 500 MG CAPS 1 PO bid x 7 days CEPHALEXIN 500 MG CAPS 626479 CEPHALEXIN Inactive HYDROCODONE-ACETAMINOPHEN 5-325 MG TABS 1 tab by mouth every 6 hours as needed HYDROCODONE-ACETAMINOPHEN 5-325 MG TABS 225919 HYDROCODONE-ACETAMINOPHEN Inactive PROMETHAZINE-CODEINE 6.25-10 MG/5ML SYRP 1 tsp every 6 hrs prn c ough PROMETHAZINE-CODEINE 6.25-10 MG/5ML SYRP 896936 PROMETH AZINE-CODEINE Inactive IBUPROFEN 800 MG TAB 1 pill three times daily as needed for pain IBUPROFEN 800 MG TAB 246118 IBUPROFEN Inactive KEFLEX 500 MG CAP 1 tab po tid KEFLEX 500 MG CAP 019785 CEPHALEXIN Inactive HYDROCODONE-ACETAMINOPHEN 7.5-325 MG TABS 1 four times a day as needed for pain HYDROCODONE-ACETAMINOPHEN 7.5-325 MG TABS 835349 HYDROCODONE-ACETAMINOPHEN Inactive BACTRIM DS 800-160 MG TABS by mouth twice a day 11/05 BACTRIM DS 800-160 MG TABS SULFAMETHOXAZOLE-TRIMETHOPRIM Inactive IBUPROFEN 800 MG TABS 1 tid prn IBUPROFEN 800 MG TABS 380160 IBUPROFEN Inactive ENDOCET 10-325 MG TABS 1 q 6 hr prn ENDOC ET 10-325 MG TABS 7168485 OXYCODONE-ACETAMINOPHEN Inactive HYDROCODONE-ACETAMINOPHEN 7.5-325 MG TABS 1 by mouth e very 6 hours as needed for pain HYDROCODONE-ACETAMINOPHEN 7.5-325 MG TABS 934158 HYDROCODONE-ACETAMINOPHEN Inactive PERCOCET 7.5-325 MG TABS 1 PO q 8 hrs PRN pain PERCOCET 7.5-325 MG TABS 2836752 OXYCODONE-ACETAMINOPHEN Inactive LIDODERM 5 % PTCH One patch to painful area [place] N. On for 12 hrs, off for 12 hrs. LIDODERM 5 % PTCH 3147528 LIDOCAINE Inactiv e PERCOCET 7.5-325 MG TABS 1 PO tid PRN pain PERCOCET 7.5- 325 MG TABS 3847641 OXYCODONE-ACETAMINOPHEN Inactive MOBIC 15 MG TABS 1 tab daily MOBIC 15 MG TABS 15 2695 MELOXICAM Inactive CYCLOBENZAPRINE HCL 10 MG TABS 1/2 - 1 tab PO tid PRN back p ain, muscle spasm CYCLOBENZAPRINE HCL 10 MG TABS 366331 CYCLOBENZA JOSEPH HCL Inactive LORATADINE 10 MG TABS 1 tablet by mouth daily LORATADINE 10 MG TABS 523696 LORATADINE Inactive HYDROCODONE-ACETAMINOPHEN 10-325 MG TABS 1 by mouth ev chaka 8 hours as needed for pain HYDROCODONE-ACETAMINOPHEN 10-325 MG TABS 194161 HYDROCODONE-ACETAMINOPHEN Inactive LC-5 LIDOCAINE 5 % CREA apply 1 time daily to affected area 2013 LC-5 LIDOCAINE 5 % CREA LIDOCAINE (ANORECTAL) In active PERCOCET 5-325 MG TAB 1 every 6 hours as needed PERCOCET 5-325 MG TAB 6808855 OXYCODONE-ACETAMINOPHEN Inactive AMOXICILLIN 875 MG TABS 1 tab by mouth twice daily 201 07/18/07 AMOXICILLIN 875 MG TABS 241173 AMOXICILLIN Inactive KEFLEX 500 MG CAP 1 po tid x 10 days KEFLEX 500 MG CAP 378478 CEPHALEXIN Inactive AMOXICILLIN 875 MG TABS 1 tab by mouth twice daily 201 07/19/27 AMOXICILLIN 875 MG TABS 621454 AMOXICILLIN Inactive AMOXICILLIN 875 MG TABS 1 tab by mouth twice daily 201 08/09/13 AMOXICILLIN 875 MG TABS 864349 AMOXICILLIN Inactive CIPRO 500 MG TAB 1 tablet by mouth twice daily CIPRO 500 MG TAB 605841 CIPROFLOXACIN HCL Inactive BACTRIM DS 800-160 MG TAB 1 tab by mouth twice daily 2 BACTRIM DS 800-160 MG TAB TRIMETHOPRIM-SULFAMETHOXAZOLE Inac tive LEVAQUIN 500 MG TABS 1 PO q day x 7 days LEVAQUIN 500 MG TABS 284905 LEVOFLOXACIN Inactive CLINDAMYCIN HCL 300 MG CAPS 1 po QID x 7 days CLINDAMYCIN HCL 300 MG CAPS 074036 CLINDAMYCIN HCL Inactive AUGMENTIN 875-125 MG TAB 1 tab by mouth twice daily with food 20 22/05/07 AUGMENTIN 875-125 MG TAB 063246 AMOXICILLIN-POT CLAVULA [place] Inactive DIFLUCAN 150 MG TAB 1 qODay x 2 doses DIFLUCAN 150 MG TAB 287468 FLUCONAZOLE Inactive Advance Directives Directive Description Start Date PERMISSION TO SHARE Immunizations Vaccine Administration Date Value Standard Alf cription Seasonal influenza vaccine, injectable, containing preservative, for > 3 years old (Afluria, FluLaval, Fluzone, Fluvirin, Fluarix, Agriflu(>= 18 yo)) Fluzone (>3 yrs.) [[id number]] Influenza, seasonal, inject able Seasonal influenza vaccine, injectable, preservative free, for > 3 years old (Afluria, FluLaval, Fluzone, Fluvirin, Fluarix, Agriflu(>= 18 yo)) Fluzone preservative free (>3 yrs.) [[id number]] Influenza, seasonal, injectable, preservative free Seasonal influenza vaccine, injectable, containing preservative, for > 3 years old (Afluria, FluLaval, Fluzone, Fluvirin, Fluarix, Agriflu(>= 18 yo)) Fluzone (>3 yrs.) [[id number]] Influenza, seasonal, inject able Seasonal influenza vaccine, injectable, containing preservative, for > 3 years old (Afluria, FluLaval, Fluzone, Fluvirin, Fluarix, Agriflu(>= 18 yo)) Fluzone (>3 yrs.) [[id number]] Influenza, seasonal, inject able dT (Diphtheria and [...] ... - Chemistry sodium, serum 140 mmol/L 249-119 1264/02/24 potassium, serum 4.3 mmol/L 3.5-5.2 chloride, serum [...] 4.3-6.0 Lab Report: T3, TOTAL, INSULIN - Neighborhood Aide ry triiodothyronine (T3), serum 78 ng/dL 76-181 Office Visit: low blood sugars - Chemis try cholesterol, target level 200 mg/dL triglyceride, target level 200 mg/dL HDL cholesterol, serum, target level 35 mg/dL LDL target level 100 mg/dL Encounters Code Encounter Date Provider Facility CPT-16172 Level 3 Est. Patient 14:03:08 BEHAVIORAL INTERVENTIONIST Abdirahman Rios MD [facility] CPT-94359 Level 3 Est. Patient 18:12:34 CDT Shola Wright [facility] CPT-04669 Level 3 Est. Patient 19:34:46 CDT Shola Wright [facility] CPT-64795 Level 3 Est. Patient 14:19:37 CDT Abdirahman Rios MD [facility] CPT-71831 Level 3 Est. Patient 14:11:58 CDT Kalpesh goins MD [facility] CPT-68301 Level 3 Est. Patient 16:50:00 CDT Michelle MERCADO [facility] CPT-23719 Level 3 Est. Patient 17:11:32 BEHAVIORAL INTERVENTIONIST Brandie bates MD PhD [facility] CPT-74695 Level 3 Est. Patient 16:31:47 BEHAVIORAL INTERVENTIONIST Shola Wright [facility] CPT-26872 Level 3 Est. Patient 17:51:10 BEHAVIORAL INTERVENTIONIST Abhinav Galvan MD [facility] CPT-70128 Level 4 Est. Patient 12:54:56 BEHAVIORAL INTERVENTIONIST Kalpesh goins MD [facility] CPT-93365 Level 4 Est. Patient 12:53:56 BEHAVIORAL INTERVENTIONIST Kalpesh goins MD [facility] CPT-87421 Level 3 Est. Patient 17:56:58 CDT Shola Wright [facility] CPT-24439 Level 3 Est. Patient 14:26:20 CDT Janak butcher [facility] CPT-86674 Level 3 Est. Patient 09:38:41 CDT Shola Thao Adriana [facility] CPT-40315 Level 3 Est. Patient 14:45:26 CDT Edilberto tiwari [facility] CPT-47362 Level 3 Est. Patient 10:51:33 CDT [facility] Level 3 Est. Patient 11:57:55 BEHAVIORAL INTERVENTIONIST Shola Thao Adriana [facility] CPT-48783 Level 3 Est. Patient 09:53:33 BEHAVIORAL INTERVENTIONIST Edilberto tiwari [facility] CPT-70686 Level 3 Est. Patient 14:42:54 BEHAVIORAL INTERVENTIONIST Abhinav Galvan MD [facility] CPT-95031 Level 3 Est. Patient 15:10:02 CDT Janak butcher [facility] CPT-69137 Level 3 Est. Patient 15:20:20 CDT Theo dennis MD [facility] CPT-87392 Level 2 Est. Patient 14:08:57 CDT Kalpesh goins MD [facility] CPT-61024 Level 3 Est. Patient 13:56:19 CDT Abdirahman Rios MD [facility] CPT-03018 Level 3 Est. Patient 13:59:37 CDT Abdirahman Rios MD [facility] CPT-29895 Level 2 Est. Patient 14:44:59 CDT Kalpesh goins MD [facility] CPT-58415 Level 3 Est. Patient 06:06:23 CDT Edilberto tiwari [facility] CPT-52304 Level 3 Est. Patient 15:23:54 CDT Abdirahman Rios MD [facility] CPT-28535 Level 3 Est. Patient 15:43:49 CDT Abdirahman Rios MD [facility] CPT-06564 Level 3 Est. Patient 12:46:47 BEHAVIORAL INTERVENTIONIST Abdirahman Rios MD [facility] CPT-94375 Level 3 Est. Patient 08:13:35 BEHAVIORAL INTERVENTIONIST Abdirahman Rios MD [facility] CPT-41295 Level 2 Est. Patient 09:36:42 BEHAVIORAL INTERVENTIONIST Abdirahman Rios MD [facility] CPT-00830 Level 3 Est. Patient 10:56:43 CDT Abdirahman Rios MD [facility] CPT-83170 Level 3 Est. Patient 18:24:52 CDT Abdirahman Rios MD [facility] CPT-91140 Level 3 Est. Patient 13:27:22 CDT Abdirahman Rios MD [facility] Procedures Code Procedure Name Date Entry Date Standard Desc ription CPT-39816 Postop F/U Visit 08:19:08 BEHAVIORAL INTERVENTIONIST CPT-35032 Immunization Single Admin 16:41:53 CDT 2013 CPT-15694 Fluzone Quadrivalent Intramuscular Suspe nsion 0.5 ML 16:41:53 CDT CPT-OV Office Visit 16:39:18 CDT CPT-OV Office Visit 16:16:36 CDT CPT-OV Office Visit 15:34:48 CDT CPT-47848 Postop F/U Visit 14:50:12 CDT CPT-64184 Postop F/U Visit 14:41:10 CDT CPT-43188 Venipuncture Draw Fee 11:38:04 BEHAVIORAL INTERVENTIONIST CPT-97463 Postop F/U Visit 19:02:59 BEHAVIORAL INTERVENTIONIST CPT-86177 Postop F/U Visit 12:04:54 BEHAVIORAL INTERVENTIONIST CPT-01904 Administration single or combination vac cine inc oral 15:56:43 CDT CPT-93698 Influenza split virus > age 3 15:56:43 CDT CPT-81879 Hand comp min 3V 14:25:19 CDT CPT-88007 Postop F/U Visit 21:40:51 CDT CPT-73492 Postop F/U Visit 10:58:43 CDT CPT-09968 Administration single or combination vac cine inc oral 12:33:54 BEHAVIORAL INTERVENTIONIST CPT-56965 Influenza Preservative Free split virus >age 3 12:33:54 BEHAVIORAL INTERVENTIONIST CPT-31116 Administration single or combination vac cine inc oral 09:30:51 CDT CPT-07917 Influenza split virus > age 3 09:30:51 CDT CPT-73373 Postop F/U Visit 15:14:53 CDT CPT-65065 Postop F/U Visit 13:50:14 CDT CPT-42792 Postop F/U Visit 13:34:52 CDT CPT-OV Office Visit 16:55:03 CDT CPT-91409 [place] of cervix w bx ECC 13:32:50 CDT 10/19 CPT-J1885 Toradol 60 mg (Ketorolac) 15:31:59 CDT 2011 CPT-J1885 Toradol 60 mg (Ketorolac) 15:23:54 CDT 2011 CPT-86102 Visit 11:34:37 BEHAVIORAL INTERVENTIONIST CPT-25391 Visit 10:52:39 BEHAVIORAL INTERVENTIONIST CPT-63633 Visit 10:12:02 BEHAVIORAL INTERVENTIONIST CPT-45689 Visit 11:22:43 BEHAVIORAL INTERVENTIONIST CPT-91879 Visit 11:24:12 BEHAVIORAL INTERVENTIONIST CPT-95740 Visit 10:47:05 BEHAVIORAL INTERVENTIONIST CPT-OV Office Visit 10:26:16 BEHAVIORAL INTERVENTIONIST CPT-OV Office Visit 15:34:31 BEHAVIORAL INTERVENTIONIST CPT-14725 Visit 10:42:08 BEHAVIORAL INTERVENTIONIST CPT-32679 Visit 10:52:45 BEHAVIORAL INTERVENTIONIST CPT-000 Give Appropriate Flu Vaccine 16:56:41 CDT 2 CPT-10704 Administration single or combination vac cine inc oral 10:33:21 CDT CPT-25737 Influenza split virus > age 3 10:33:21 CDT CPT-94109 Visit 13:23:09 CDT CPT-20640 Visit 18:24:52 CDT CPT-37108 Sono OB comp > 14 weeks 12:07:49 CDT 04/07
--- OUTSIDE RECORDS SUMMARY | 2020-01-18 17:04 | XMS REPORT | Clinical Summary ---
Author Author Admin, Jeri Rashid Organization [facility] Address Unknown Phone Allergies, Adverse Reactions, [...] by mouth twice a day 11/05 SULFAMETHOXAZOLE-TRIMETHOPRIM [id number] No Longer Active Good Julian MD Active IBUPROFEN 800 MG TABS 1 tid prn IBUPROFEN 54881870208 Active Good Julian MD Active ENDOCET 10-325 MG TABS 1 q 6 hr prn OXYCODONE-A CETAMINOPHEN 85225794487 Active Shola MCGILL Active HYDROCODONE-ACETAMINOPHEN 7.5-325 MG TABS 1 four times a day as needed for pain HYDROCODONE-ACETAMINOPHEN 74623879590 No Longer Activ crystal Julian MD Active KEFLEX 500 MG CAP 1 tab po tid CEPHALEXIN 397369 28083 No Longer Active Hira Moser APRN Active IBUPROFEN 800 MG TAB 1 pill three times daily as needed for pain IBUPROFEN 51568484927 No Longer Active Kalpesh Dong MD Active PROMETHAZINE-CODEINE 6.25-10 MG/5ML SYRP 1 tsp every 6 hrs prn c ough PROMETHAZINE-CODEINE 71947150716 No Longer Active Kalpesh Carr Active ALPRAZOLAM 0.5 MG TABS 1 PO bid PRN ALPRAZOLAM 416958 74020 Active Shola MCGILL Active HYDROCODONE-ACETAMINOPHEN 5-325 MG TABS 1 tab by mouth every 6 hours as needed HYDROCODONE-ACETAMINOPHEN 71886635232 No Longer Activ e Shola MCGILL Active CEPHALEXIN 500 MG CAPS 1 PO bid x 7 days CEPHAL EXIN 14484765988 No Longer Active Shola MCGILL Active BACTRIM DS 800-160 MG TAB 1 tab by mouth twice daily 2 TRIMETHOPRIM-SULFAMETHOXAZOLE 69596327238 No Longer Active Kalpesh Dong MD Active HYDROCODONE-ACETAMINOPHEN 5-325 MG TABS 1 PO tid PRN pain 5 HYDROCODONE-ACETAMINOPHEN 29842866422 No Longer Active Abhinav Galvan MD Active IMPLANON 68 MG IMPL IMPLANTED IN LEFT ARM ETONO GESTREL 16897515882 No Longer Active 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 TERRAZZO LAYER Active AMOXICILLIN 500 MG TABS 2 tabs PO bid x 10 d AM OXICILLIN 02542304594 No Longer Active Kalpesh Dong MD Active LEVAQUIN 500 MG TABS 1 PO q day x 7 days LEVOFL OXACIN 84829499811 No Longer Active Shola MCGILL Active PROAIR HFA 108 (90 BASE) MCG/ACT AERS 2 puff q 4-6 hrs PRN ALBUTEROL SULFATE 04864066927 Active Shola MCGILL Acti ve FIORICET 50-325-40 MG TABS 2 PO q 8 hrs PRN FOSTER [id number] 42285934527 Active Abdirahman Rios MD Active AMITRIPTYLINE HCL 25 MG TAB 1 tab by mouth daily 60 minutes before bedtime AMITRIPTYLINE HCL 60612661790 No Longer Active Shola MCGILL Active LORTAB 5 5-500 MG TABS 1/2 to 1 tablet by mouth go ry 6 hours as needed for pain HYDROCODONE-ACETAMINOPHEN 23225251656 No Longer Active Shola MCGILL Active CEPHALEXIN 500 MG TABS Take one by mouth four times daily, morning, noon, early evening and bedtime. CEPHALEXIN 28401056623 No Long er Active Hira Moser TERRAZZO LAYER Active TYLENOL/CODEINE #3 300-30 MG TAB 1-2 po q6hr PRN Pain ACETAMINOPHEN-CODEINE 08682003547 No Longer Active Edilberto Marino DO Active PRISTIQ 50 MG [id number] 1 po qd DESVENLAFAXI NE SUCCINATE 50234039681 No Longer Active Edilberto Marino DO Active PENICILLIN V POTASSIUM 500 MG TAB 1 four times a day 2 PENICILLIN V POTASSIUM 52604419324 No Longer Active Edilberto Marino DO Active DOXYCYCLINE HYCLATE 100 MG CAPS Take one (1) tablet by mouth twice a day DOXYCYCLINE HYCLATE 44942372860 No Longer Active Ronnie Galvan MD Active HYDROCODONE-ACETAMINOPHEN 5-325 MG TABS 1 po q 6hr PRN Pain 2011 HYDROCODONE-ACETAMINOPHEN 92590110573 No Longer Active Patri joan Perez RN Active BACTRIM DS 800-160 MG TAB 1 tab by mouth twice daily 2 TRIMETHOPRIM-SULFAMETHOXAZOLE 25645812443 No Longer Active Kalpesh Dong MD Active LORTAB 5 5-500 MG TABS 1/2 to 1 tablet by mouth go ry 4 hours as needed for pain HYDROCODONE-ACETAMINOPHEN 26372501875 No Longer Active Kalpesh Dong MD Active GENERESS FE 0.8-25 MG-MCG CHEW Take one by mouth daily NORETHIN-ETH ESTRADIOL-FE 83543729065 No Longer Active Kalpesh Dong MD Active HYDROCODONE-ACETAMINOPHEN 7.5-500 MG TABS 1-2 every 4 hours as needed HYDROCODONE-ACETAMINOPHEN 44300106049 No Longer Activ e Kalpesh Dong MD Active FERROUS SULFATE 325 (65 FE) MG TABS 1 tablet by mouth twice yung y FERROUS SULFATE 20635176065 No Longer Active Kalpesh Dong MD Active IBUPROFEN 600 MG TAB 1 po q6-8hr PRN IBUPROFEN 25411531066 No Longer Active Kalpesh Dong MD Active SPIRONOLACTONE 25 MG TAB 1 tablet by mouth daily 01/22 SPIRONOLACTONE 99793840308 No Longer Active Kalpesh Dong MD Acti ve HYDROCODONE-ACETAMINOPHEN 7.5-325 MG TABS 1 po QID PRN Pain 2011 HYDROCODONE-ACETAMINOPHEN 86998059666 No Longer Active Kalpesh Dong MD Active CLINDAMYCIN HCL 300 MG CAPS 1 po q6hr x 7 days CLINDAMYCIN HCL 91893855761 No Longer Active Edilberto Marino DO Active PREDNISONE 20 MG TAB 2 tabs daily for 4 days, 1 t ab daily for 4 days, 1/2 tab daily for 4 days PREDNISONE 25872398747 No Longer Active Edilberto Marino DO Active PERCOCET 5-325 MG TABS 1 tablet by mouth every 6 hours as ne eded for pain OXYCODONE-ACETAMINOPHEN 49945194741 No Longer Active Abdirahman Rios MD Active VITAMINS TABS Take one by mouth daily MV & MIN W/FE-FA TABS 38553134896 No Longer Active Abdirahman Rios MD Active LUIS 3-0.02 MG TABS 1 tablet by mouth daily as directed DROSPIRENONE-ETHINYL ESTRADIOL 36841406643 No Longer Active Abdirahman Rios MD Active LORATADINE 10 MG TABS 1 tablet by mouth daily L ORATADINE 52850796977 No Longer Active Kalpesh Dong MD Active HYDROCODONE-ACETAMINOPHEN 5-325 MG TABS 1 po q 6hr PRN Pain 2010 HYDROCODONE-ACETAMINOPHEN 23050237706 No Longer Active Edilberto Marino DO Active BACTRIM DS 800-160 MG TAB 1 tab by mouth twice daily 2 TRIMETHOPRIM-SULFAMETHOXAZOLE 35714961316 No Longer Active Abdirahman Rios MD Active 28-0.8 MG TABS Take one by mouth daily 09/20 VIT-FE FUMARATE-FA 19131210357 No Longer Active Abdirahman Rios MD Active CIPRO 500 MG TAB 1 tablet by mouth twice daily CIPROFLOXACIN HCL 56365690092 No Longer Active Abdirahman Rios MD Active BENADRYL 25 MG CAP 1 po q8hr PRN Congestion DIPHENHYDRAMINE HCL 37594697660 No Longer Active Abdirahman Rios MD Active ZOLOFT 50 MG TAB 1 po qd SERTRALINE HCL 032659 20762 No Longer Active Abdirahman Rios MD Active AMOXICILLIN 875 MG TABS 1 tab by mouth twice daily 201 08/09/13 AMOXICILLIN 40706645038 No Longer Active Abdirahman Rios MD Activ e AMOXICILLIN 875 MG TABS 1 tab by mouth twice daily 201 07/19/27 AMOXICILLIN 19217797421 No Longer Active Abdirahman Rios MD Activ e BACTRIM DS 800-160 MG TAB 2 tab by mouth twice daily 2 TRIMETHOPRIM-SULFAMETHOXAZOLE 59315228628 No Longer Active Abdirahman Rios MD Active KEFLEX 500 MG CAP 1 po tid x 10 days CEPHALEXIN 66082030508 No Longer Active Abdirahman Rios MD Active AMOXICILLIN 875 MG TABS 1 tab by mouth twice daily 201 07/18/07 AMOXICILLIN 46583169783 No Longer Active Abdirahman Rios MD Activ e BACTRIM DS 800-160 MG TAB 2 tab by mouth twice daily 2 BACTRIM DS 800-160 MG TAB TRIMETHOPRIM-SULFAMETHOXAZOLE Inactive ZOLOFT 50 MG TAB 1 po qd ZOLOFT 50 MG TAB 3129 41 SERTRALINE HCL Inactive BENADRYL 25 MG CAP 1 po q8hr PRN Congestion BENADRYL 25 MG CAP 2518611 DIPHENHYDRAMINE HCL Inactive 28-0.8 MG TABS Take one by mouth daily 09/20 28-0.8 MG TABS VIT-FE FUMARATE-FA Inactive HYDROCODONE-ACETAMINOPHEN 5-325 MG TABS 1 po q 6hr PRN Pain 2010 HYDROCODONE-ACETAMINOPHEN 5-325 MG TABS 297556 HYDROCODONE-ACETAMINOPHEN Inactive LORATADINE 10 MG TABS 1 tablet by mouth daily LORATADINE 10 MG TABS 625543 LORATADINE Inactive LUIS 3-0.02 MG TABS 1 tablet by mouth daily as directed LUIS 3-0.02 MG TABS DROSPIRENONE-ETHINYL ESTRADIOL Inactive VITAMINS TABS Take one by mouth daily VITAMINS TABS MV & MIN W/FE-FA TABS Inactive PERCOCET 5-325 MG TABS 1 tablet by mouth every 6 hours as ne eded for pain PERCOCET 5-325 MG TABS 8481452 OXYCODONE-ACETAMIN OPHEN Inactive PREDNISONE 20 MG TAB 2 tabs daily for 4 days, 1 t ab daily for 4 days, 1/2 tab daily for 4 days PREDNISONE 20 MG TAB 332269 PREDNISON E Inactive CLINDAMYCIN HCL 300 MG CAPS 1 po q6hr x 7 days CLINDAMYCIN HCL 300 MG CAPS 502082 CLINDAMYCIN HCL Inactive HYDROCODONE-ACETAMINOPHEN 7.5-325 MG TABS 1 po QID PRN Pain 2011 HYDROCODONE-ACETAMINOPHEN 7.5-325 MG TABS 142459 HYDROCODONE-ACETAMINOPHEN Inactive SPIRONOLACTONE 25 MG TAB 1 tablet by mouth daily 01/22 SPIRONOLACTONE 25 MG TAB 495423 SPIRONOLACTONE Inactive IBUPROFEN 600 MG TAB 1 po q6-8hr PRN IBUPROFEN 600 MG TAB 629603 IBUPROFEN Inactive FERROUS SULFATE 325 (65 FE) MG TABS 1 tablet by mouth twice yung y FERROUS SULFATE 325 (65 FE) MG TABS 333393 FERROUS SULF ATE Inactive HYDROCODONE-ACETAMINOPHEN 7.5-500 MG TABS 1-2 every 4 hours as needed HYDROCODONE-ACETAMINOPHEN 7.5-500 MG TABS 766121 HYDROCODONE-ACETAMINOPHEN Inactive GENERESS FE 0.8-25 MG-MCG CHEW [...] PRN Pain 2011 HYDROCODONE-ACETAMINOPHEN 5-325 MG TABS 696176 HYDROCODONE-ACETAMINOPHEN Inactive DOXYCYCLINE HYCLATE 100 MG CAPS Take one (1) tablet by mouth twice a day DOXYCYCLINE HYCLATE 100 MG CAPS 943951 DOXYCYCLINE HYCLATE Inactive PENICILLIN V POTASSIUM 500 MG TAB 1 four times a day 2 PENICILLIN V POTASSIUM 500 MG TAB 776761 PENICILLIN V POTASSIUM [place] [facility] PRISTIQ 50 MG [id number] 1 po qd PRISTIQ 50 MG [id number] DESVENLAFAXINE SUCCINATE Inactive TYLENOL/CODEINE #3 300-30 MG TAB 1-2 po q6hr PRN Pain TYLENOL/CODEINE #3 300-30 MG TAB 290596 ACETAMINOPHEN-CODEINE Inact krishna CEPHALEXIN 500 MG TABS Take one by mouth four times daily, morning, noon, early evening and bedtime. CEPHALEXIN 500 MG TABS 609055 CEPHALEXIN Inactive LORTAB 5 5-500 MG TABS 1/2 to 1 tablet by mouth go ry 6 hours as needed for pain LORTAB 5 5-500 MG TABS HYDROCODONE-A CETAMINOPHEN Inactive AMITRIPTYLINE HCL 25 MG TAB 1 tab by mouth daily 60 minutes before bedtime AMITRIPTYLINE HCL 25 MG TAB 221451 AMITRIPTYLINE HCL Inactive AMOXICILLIN 500 MG TABS 2 tabs PO bid x 10 d 7 AMOXICILLIN 500 MG TABS 800862 AMOXICILLIN Inactive IMPLANON 68 MG IMPL IMPLANTED IN LEFT ARM IMPLANON 68 MG IMPL ETONOGESTREL Inactive HYDROCODONE-ACETAMINOPHEN 5-325 MG TABS 1 PO tid PRN pain 5 HYDROCODONE-ACETAMINOPHEN 5-325 MG TABS 056901 HYDROCODONE-ACETAMIN OPHEN Inactive BACTRIM DS 800-160 MG TAB 1 tab by mouth twice daily 2 BACTRIM DS 800-160 MG TAB TRIMETHOPRIM-SULFAMETHOXAZOLE Inac tive CEPHALEXIN 500 MG CAPS 1 PO bid x 7 days CEPHALEXIN 500 MG CAPS 789854 CEPHALEXIN Inactive HYDROCODONE-ACETAMINOPHEN 5-325 MG TABS 1 tab by mouth every 6 hours as needed HYDROCODONE-ACETAMINOPHEN 5-325 MG TABS 649673 HYDROCODONE-ACETAMINOPHEN Inactive PROMETHAZINE-CODEINE 6.25-10 MG/5ML SYRP 1 tsp every 6 hrs prn c ough PROMETHAZINE-CODEINE 6.25-10 MG/5ML SYRP 118468 PROMETH AZINE-CODEINE Inactive IBUPROFEN 800 MG TAB 1 pill three times daily as needed for pain IBUPROFEN 800 MG TAB 540416 IBUPROFEN Inactive KEFLEX 500 MG CAP 1 tab po tid KEFLEX 500 MG CAP 684617 CEPHALEXIN Inactive HYDROCODONE-ACETAMINOPHEN 7.5-325 MG TABS 1 four times a day as needed for pain HYDROCODONE-ACETAMINOPHEN 7.5-325 MG TABS 233294 HYDROCODONE-ACETAMINOPHEN Inactive BACTRIM DS 800-160 MG TABS by mouth twice a day 11/05 BACTRIM DS 800-160 MG TABS SULFAMETHOXAZOLE-TRIMETHOPRIM Inactive AMOXICILLIN 875 MG TABS 1 tab by mouth twice daily 201 07/18/07 AMOXICILLIN 875 MG TABS 517423 AMOXICILLIN Inactive KEFLEX 500 MG CAP 1 po tid x 10 days KEFLEX 500 MG CAP 495661 CEPHALEXIN Inactive AMOXICILLIN 875 MG TABS 1 tab by mouth twice daily 201 07/19/27 AMOXICILLIN 875 MG TABS 278962 AMOXICILLIN Inactive AMOXICILLIN 875 MG TABS 1 tab by mouth twice daily 08/09/13 AMOXICILLIN 875 MG TABS 488756 AMOXICILLIN Inactive CIPRO 500 MG TAB 1 tablet by mouth twice daily CIPRO 500 MG TAB 707072 CIPROFLOXACIN HCL Inactive BACTRIM DS 800-160 MG TAB 1 tab by mouth twice daily 2 BACTRIM DS 800-160 MG TAB TRIMETHOPRIM-SULFAMETHOXAZOLE Inac tive LEVAQUIN 500 MG TABS 1 PO q day x 7 days LEVAQUIN 500 MG TABS 237455 LEVOFLOXACIN Inactive Advance Directives Directive Description Start Date PERMISSION TO SHARE Immunizations Vaccine Administration Date Value Standard Alf cription Seasonal influenza vaccine, injectable, containing preservative, for > 3 years old (Afluria, FluLaval, Fluzone, Fluvirin, Fluarix, Agriflu(>= 18 yo)) Fluzone (>3 yrs.) [[id number]] Influenza, seasonal, inject able Seasonal influenza vaccine, injectable, preservative free, for > 3 years old (Afluria, FluLaval, Fluzone, Fluvirin, Fluarix, Agriflu(>= 18 yo)) Fluzone preservative free (>3 yrs.) [[id number]] Influenza, seasonal, injectable, preservative free Seasonal influenza vaccine, injectable, containing preservative, for > 3 years old (Afluria, FluLaval, Fluzone, Fluvirin, Fluarix, Agriflu(>= 18 yo)) Fluzone (>3 yrs.) [[id number]] Influenza, seasonal, inject able Seasonal influenza vaccine, injectable, containing preservative, for > 3 years old (Afluria, FluLaval, Fluzone, Fluvirin, Fluarix, Agriflu(>= 18 yo)) Fluzone (>3 yrs.) [[id number]] Influenza, seasonal, inject able dT (Diphtheria and [...] mg/dL Chart Maintenance: Outside labs entered on [employer] - Hematology leukocyte count, blood 8.3 10*3/mm3 erythrocyte (RBC) count 5.2 10*6/mm3 hemoglobin, blood 14.2 g/dL hematocrit, blood 42.6 % mean corpuscular volume, RBC 82.4 fL mean corpuscular hemoglobin, RBC 27.5 pg red blood cell distribution width 12.9 % platelet count 316 10*3/mm3 Lab Report: CBC W/DIFF, Comp. Metabolic Panel, Thyroid Stimulating Hormo ... - Chemistry sodium, serum 140 mmol/L 918-132 3279/02/24 potassium, serum 4.3 mmol/L 3.5-5.2 chloride, serum [...] 4.3-6.0 Lab Report: T3, TOTAL, INSULIN - Nurse Wound Care ry triiodothyronine, serum 78 ng/dL 76-181 Lab [...] mg/dL Encounters Code Encounter Date Provider Facility CPT-98369 Level 3 Est. Patient 14:11:58 CDT Kalpesh goins MD [facility] CPT-89276 Level 3 Est. Patient 16:50:00 CDT Michelle MERCADO [facility] CPT-82672 Level 3 Est. Patient 17:11:32 BATTERYMAN Brandie bates MD PhD [facility] CPT-73141 Level 3 Est. Patient 16:31:47 BATTERYMAN Shola MCGILL [facility] CPT-65496 Level 3 Est. Patient 17:51:10 BATTERYMAN Abhinav Galvan MD [facility] CPT-96449 Level 4 Est. Patient 12:54:56 BATTERYMAN Kalpesh goins MD [facility] CPT-74059 Level 4 Est. Patient 12:53:56 BATTERYMAN Kalpesh goins MD [facility] CPT-60256 Level 3 Est. Patient 17:56:58 CDT Shola MCGILL [facility] CPT-00525 Level 3 Est. Patient 14:26:20 CDT Janak butcher [facility] CPT-13038 Level 3 Est. Patient 09:38:41 CDT Shola Wright [facility] CPT-73508 Level 3 Est. Patient 14:45:26 CDT Edilberto tiwari [facility] CPT-22872 Level 3 Est. Patient 10:51:33 CDT Hira muniz [facility] CPT-58459 Level 3 Est. Patient 11:57:55 BATTERYMAN Shola Thao Adriana [facility] CPT-20254 Level 3 Est. Patient 09:53:33 BATTERYMAN Edilberto tiwari [facility] CPT-56696 Level 3 Est. Patient 14:42:54 BATTERYMAN Abhinav Galvan MD [facility] CPT-25069 Level 3 Est. Patient 15:10:02 CDT Janak butcher [facility] CPT-71219 Level 3 Est. Patient 15:20:20 CDT Theo dennis MD [facility] CPT-61746 Level 2 Est. Patient 14:08:57 CDT Kalpesh goins MD [facility] CPT-78552 Level 3 Est. Patient 13:56:19 CDT Abdirahman Rios MD [facility] CPT-81653 Level 3 Est. Patient 13:59:37 CDT Abdirahman Rios MD [facility] CPT-57762 Level 2 Est. Patient 14:44:59 CDT Kalpesh goins MD [facility]-53858 Level 3 Est. Patient 06:06:23 CDT Edilberto tiwari [facility] CPT-32498 Level 3 Est. Patient 15:23:54 CDT Abdirahman Rios MD [facility] CPT-38095 Level 3 Est. Patient 15:43:49 CDT Abdirahman Rios MD [facility] CPT-78818 Level 3 Est. Patient 12:46:47 BATTERYMAN Abdirahman Rios MD [facility] CPT-86595 Level 3 Est. Patient 08:13:35 BATTERYMAN Abdirahman Rios MD [facility] CPT-94403 Level 2 Est. Patient 09:36:42 BATTERYMAN Abdirahman Rios MD [facility] CPT-44718 Level 3 Est. Patient 10:56:43 CDT Abdirahman Rios MD [facility] CPT-47672 Level 3 Est. Patient 18:24:52 CDT Abdirahman Rios MD [facility] CPT-54387 Level 3 Est. Patient 13:27:22 CDT Abdirahman Rios MD [facility] Procedures Code Procedure Name Date Entry Date Standard Desc ription CPT-OV Office Visit 15:34:48 CDT CPT-04147 Postop F/U Visit 14:50:12 CDT CPT-68525 Postop F/U Visit 14:41:10 CDT CPT-44388 Venipuncture Draw Fee 11:38:04 BATTERYMAN CPT-71077 Postop F/U Visit 19:02:59 BATTERYMAN CPT-32225 Postop F/U Visit 12:04:54 BATTERYMAN CPT-02279 Administration single or combination vac cine inc oral 15:56:43 CDT CPT-67530 Influenza split virus > age 3 15:56:43 CDT CPT-87607 Hand comp min 3V 14:25:19 CDT CPT-11148 Postop F/U Visit 21:40:51 CDT CPT-28259 Postop F/U Visit 10:58:43 CDT CPT-05564 Administration single or combination vac cine inc oral 12:33:54 BATTERYMAN CPT-99888 Influenza Preservative Free split virus >age 3 12:33:54 BATTERYMAN CPT-95415 Administration single or combination vac cine inc oral 09:30:51 CDT CPT-47044 Influenza split virus > age 3 09:30:51 CDT CPT-47996 Postop F/U Visit 15:14:53 CDT CPT-98358 Postop F/U Visit 13:50:14 CDT CPT-90757 Postop F/U Visit 13:34:52 CDT CPT-OV Office Visit 16:55:03 CDT CPT-88556 [place] of cervix w bx ECC 13:32:50 CDT 10/19 CPT-J1885 Toradol 60 mg (Ketorolac) 15:31:59 CDT 2011 CPT-J1885 Toradol 60 mg (Ketorolac) 15:23:54 CDT 2011 CPT-31559 Visit 11:34:37 BATTERYMAN CPT-51162 Visit 10:52:39 BATTERYMAN CPT-80525 Visit 10:12:02 BATTERYMAN CPT-96928 Visit 11:22:43 BATTERYMAN CPT-30459 Visit 11:24:12 BATTERYMAN CPT-11645 Visit 10:47:05 BATTERYMAN CPT-OV Office Visit 10:26:16 BATTERYMAN CPT-OV Office Visit 15:34:31 BATTERYMAN CPT-46616 Visit 10:42:08 BATTERYMAN CPT-85531 Visit 10:52:45 BATTERYMAN CPT-000 Give Appropriate Flu Vaccine 16:56:41 CDT 2 CPT-97615 Administration single or combination vac cine inc oral 10:33:21 CDT CPT-97608 Influenza split virus > age 3 10:33:21 CDT CPT-19768 Visit 13:23:09 CDT CPT-57855 Visit 18:24:52 CDT CPT-72570 Sono OB comp > 14 weeks 12:07:49 CDT 04/07
--- OUTSIDE RECORDS SUMMARY | 2020-01-18 17:05 | XMS REPORT | Clinical Summary ---
Author Author Admin, Jeri Rashid Organization [facility] Address Unknown Phone Allergies, Adverse Reactions, [...] Moni Julian MD NEUROPATHY ICD-355.9 Inactive Good sierar MD FH DIABETES ICD-V18.0 Inactive Good Julian [...] by mouth twice a day 11/05 SULFAMETHOXAZOLE-TRIMETHOPRIM [id number] No Longer Active Good Julian MD Active IBUPROFEN 800 MG TABS 1 tid prn IBUPROFEN [id number] Active Good Julian MD Active ENDOCET 10-325 MG TABS 1 q 6 hr prn OXYCODONE-A CETAMINOPHEN 52443540050 Active Shola MCGILL Active HYDROCODONE-ACETAMINOPHEN 7.5-325 MG TABS 1 four times a day as needed for pain HYDROCODONE-ACETAMINOPHEN 45756898420 No Longer Activ crystal Julian MD Active KEFLEX 500 MG CAP 1 tab po tid CEPHALEXIN 169880 86932 No Longer Active Hira Moser APRN Active IBUPROFEN 800 MG TAB 1 pill three times daily as needed for pain IBUPROFEN 73826306801 No Longer Active Kalpesh Dong MD Active PROMETHAZINE-CODEINE 6.25-10 MG/5ML SYRP 1 tsp every 6 hrs prn c ough PROMETHAZINE-CODEINE 78663243664 No Longer Active Kalpesh Carr Active ALPRAZOLAM 0.5 MG TABS 1 PO bid PRN ALPRAZOLAM 231709 14420 Active Shola MCGILL Active HYDROCODONE-ACETAMINOPHEN 5-325 MG TABS 1 tab by mouth every 6 hours as needed HYDROCODONE-ACETAMINOPHEN 26527307376 No Longer Activ e Shola MCGILL Active CEPHALEXIN 500 MG CAPS 1 PO bid x 7 days CEPHAL EXIN 68495847882 No Longer Active Shola MCGILL Active BACTRIM DS 800-160 MG TAB 1 tab by mouth twice daily 2 TRIMETHOPRIM-SULFAMETHOXAZOLE 69651490814 No Longer Active Kalpesh Dong MD Active HYDROCODONE-ACETAMINOPHEN 5-325 MG TABS 1 PO tid PRN pain 5 HYDROCODONE-ACETAMINOPHEN 86459889556 No Longer Active Abhinav Galvan MD Active IMPLANON 68 MG IMPL IMPLANTED IN LEFT ARM ETONO GESTREL 13096527503 No Longer Active 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 [employer]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 AMOXICILLIN 500 MG TABS 2 tabs PO bid x 10 d AM OXICILLIN 96792446121 No Longer Active Kalpesh Dong MD Active LEVAQUIN 500 MG TABS 1 PO q day x 7 days LEVOFL OXACIN 99523995888 No Longer Active Shola MCGILL Active PROAIR HFA 108 (90 BASE) MCG/ACT AERS 2 puff q 4-6 hrs PRN ALBUTEROL SULFATE 23354851189 Active Shola MCGILL Acti ve FIORICET 50-325-40 MG TABS 2 PO q 8 hrs PRN FOSTER [id number] 20251903986 Active Abdirahman Rios MD Active AMITRIPTYLINE HCL 25 MG TAB 1 tab by mouth daily 60 minutes before bedtime AMITRIPTYLINE HCL 81934539945 No Longer Active Shola MCGILL Active LORTAB 5 5-500 MG TABS 1/2 to 1 tablet by mouth go ry 6 hours as needed for pain HYDROCODONE-ACETAMINOPHEN 85435328918 No Longer Active Shola MCGILL Active CEPHALEXIN 500 MG TABS Take one by mouth four times daily, morning, noon, early evening and bedtime. 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 TYLENOL/CODEINE #3 300-30 MG TAB 1-2 po q6hr PRN Pain ACETAMINOPHEN-CODEINE 22055357898 No Longer Active Edilberto Marino DO Active PRISTIQ 50 MG [id number] 1 po qd DESVENLAFAXI NE SUCCINATE 58506496668 No Longer Active Edilberto Marino DO Active PENICILLIN V POTASSIUM 500 MG TAB 1 four times a day 2 PENICILLIN V POTASSIUM 42555028918 No Longer Active Edilberto Marino DO Active DOXYCYCLINE HYCLATE 100 MG CAPS Take one (1) tablet by mouth twice a day DOXYCYCLINE HYCLATE 42830930326 No Longer Active Ronnie Galvan MD Active HYDROCODONE-ACETAMINOPHEN 5-325 MG TABS 1 po q 6hr PRN Pain 2011 HYDROCODONE-ACETAMINOPHEN 66534352318 No Longer Active Patri joan Perez RN Active BACTRIM DS 800-160 MG TAB 1 tab by mouth twice daily 2 TRIMETHOPRIM-SULFAMETHOXAZOLE 67030664155 No Longer Active Kalpesh Dong MD Active LORTAB 5 5-500 MG TABS 1/2 to 1 tablet by mouth go ry 4 hours as needed for pain HYDROCODONE-ACETAMINOPHEN 96580966117 No Longer Active Kalpesh Dong MD Active GENERESS FE 0.8-25 MG-MCG CHEW Take one by mouth daily NORETHIN-ETH ESTRADIOL-FE 38426748777 No Longer Active Kalpesh Dong MD Active HYDROCODONE-ACETAMINOPHEN 7.5-500 MG TABS 1-2 every 4 hours as needed HYDROCODONE-ACETAMINOPHEN 46456795267 No Longer Activ e Kalpesh Dong MD Active FERROUS SULFATE 325 (65 FE) MG TABS 1 tablet by mouth twice yung y FERROUS SULFATE 38329500700 No Longer Active Kalpesh Dong MD Active IBUPROFEN 600 MG TAB 1 po q6-8hr PRN IBUPROFEN 28892229456 No Longer Active Kalpesh Dong MD Active SPIRONOLACTONE 25 MG TAB 1 tablet by mouth daily 01/22 SPIRONOLACTONE 63000682848 No Longer Active Kalpesh Dong MD Acti ve HYDROCODONE-ACETAMINOPHEN 7.5-325 MG TABS 1 po QID PRN Pain 2011 HYDROCODONE-ACETAMINOPHEN 75209903969 No Longer Active Kalpesh Dong MD Active CLINDAMYCIN HCL 300 MG CAPS 1 po q6hr x 7 days CLINDAMYCIN HCL 76381534066 No Longer Active Edilberto Marino DO Active PREDNISONE 20 MG TAB 2 tabs daily for 4 days, 1 t ab daily for 4 days, 1/2 tab daily for 4 days PREDNISONE 74686456841 No Longer Active Edilberto Marino DO Active PERCOCET 5-325 MG TABS 1 tablet by mouth every 6 hours as ne eded for pain OXYCODONE-ACETAMINOPHEN 45150624450 No Longer Active Abdirahman Rios MD Active VITAMINS TABS Take one by mouth daily MV & MIN W/FE-FA TABS 29157964817 No Longer Active Abdirahman Rios MD Active LUIS 3-0.02 MG TABS 1 tablet by mouth daily as directed DROSPIRENONE-ETHINYL ESTRADIOL 92604338808 No Longer Active Abdirahman Rios MD Active LORATADINE 10 MG TABS 1 tablet by mouth daily L ORATADINE 80731797945 No Longer Active Kalpesh Dong MD Active HYDROCODONE-ACETAMINOPHEN 5-325 MG TABS 1 po q 6hr PRN Pain 2010 HYDROCODONE-ACETAMINOPHEN 71467213591 No Longer Active Edilberto Marino DO Active BACTRIM DS 800-160 MG TAB 1 tab by mouth twice daily 2 TRIMETHOPRIM-SULFAMETHOXAZOLE 72686722285 No Longer Active Abdirahman Rios MD Active 28-0.8 MG TABS Take one by mouth daily 09/20 VIT-FE FUMARATE-FA 16241591092 No Longer Active Abdirahman Rios MD Active CIPRO 500 MG TAB 1 tablet by mouth twice daily CIPROFLOXACIN HCL 03127539812 No Longer Active Abdirahman Rios MD Active BENADRYL 25 MG CAP 1 po q8hr PRN Congestion DIPHENHYDRAMINE HCL 19076395788 No Longer Active Abdirahman Rios MD Active ZOLOFT 50 MG TAB 1 po qd SERTRALINE HCL 507813 64247 No Longer Active Abdirahman Rios MD Active AMOXICILLIN 875 MG TABS 1 tab by mouth twice daily 201 08/09/13 AMOXICILLIN 63366024855 No Longer Active Abdirahman Rios MD Activ e AMOXICILLIN 875 MG TABS 1 tab by mouth twice daily 201 07/19/27 AMOXICILLIN 52383644558 No Longer Active Abdirahman Rios MD Activ e BACTRIM DS 800-160 MG TAB 2 tab by mouth twice daily 2 TRIMETHOPRIM-SULFAMETHOXAZOLE 76540871335 No Longer Active Abdirahman Rios MD Active KEFLEX 500 MG CAP 1 po tid x 10 days CEPHALEXIN 61640758295 No Longer Active Abdirahman Rios MD Active AMOXICILLIN 875 MG TABS 1 tab by mouth twice daily 201 07/18/07 AMOXICILLIN 99147397382 No Longer Active Abdirahman Rios MD Activ e BACTRIM DS 800-160 MG TAB 2 tab by mouth twice daily 2 BACTRIM DS 800-160 MG TAB TRIMETHOPRIM-SULFAMETHOXAZOLE Inactive ZOLOFT 50 MG TAB 1 po qd ZOLOFT 50 MG TAB 3129 41 SERTRALINE HCL Inactive BENADRYL 25 MG CAP 1 po q8hr PRN Congestion BENADRYL 25 MG CAP 4965644 DIPHENHYDRAMINE HCL Inactive 28-0.8 MG TABS Take one by mouth daily 09/20 28-0.8 MG TABS VIT-FE FUMARATE-FA Inactive HYDROCODONE-ACETAMINOPHEN 5-325 MG TABS 1 po q 6hr PRN Pain 2010 HYDROCODONE-ACETAMINOPHEN 5-325 MG TABS 987520 HYDROCODONE-ACETAMINOPHEN Inactive LORATADINE 10 MG TABS 1 tablet by mouth daily LORATADINE 10 MG TABS 498274 LORATADINE Inactive LUIS 3-0.02 MG TABS 1 tablet by mouth daily as directed LUIS 3-0.02 MG TABS DROSPIRENONE-ETHINYL ESTRADIOL Inactive VITAMINS TABS Take one by mouth daily VITAMINS TABS MV & MIN W/FE-FA TABS Inactive PERCOCET 5-325 MG TABS 1 tablet by mouth every 6 hours as ne eded for pain PERCOCET 5-325 MG TABS 5461543 OXYCODONE-ACETAMIN OPHEN Inactive PREDNISONE 20 MG TAB 2 tabs daily for 4 days, 1 t ab daily for 4 days, 1/2 tab daily for 4 days PREDNISONE 20 MG TAB 304345 PREDNISON E Inactive CLINDAMYCIN HCL 300 MG CAPS 1 po q6hr x 7 days CLINDAMYCIN HCL 300 MG CAPS 020737 CLINDAMYCIN HCL Inactive HYDROCODONE-ACETAMINOPHEN 7.5-325 MG TABS 1 po QID PRN Pain 2011 HYDROCODONE-ACETAMINOPHEN 7.5-325 MG TABS 751138 HYDROCODONE-ACETAMINOPHEN Inactive SPIRONOLACTONE 25 MG TAB 1 tablet by mouth daily 01/22 SPIRONOLACTONE 25 MG TAB 701216 SPIRONOLACTONE Inactive IBUPROFEN 600 MG TAB 1 po q6-8hr PRN IBUPROFEN 600 MG TAB 248219 IBUPROFEN Inactive FERROUS SULFATE 325 (65 FE) MG TABS 1 tablet by mouth twice yung y FERROUS SULFATE 325 (65 FE) MG TABS 077578 FERROUS SULF ATE Inactive HYDROCODONE-ACETAMINOPHEN 7.5-500 MG TABS 1-2 every 4 hours as needed HYDROCODONE-ACETAMINOPHEN 7.5-500 MG TABS 107063 HYDROCODONE-ACETAMINOPHEN Inactive GENERESS FE 0.8-25 MG-MCG CHEW [...] PRN Pain 2011 HYDROCODONE-ACETAMINOPHEN 5-325 MG TABS 398066 HYDROCODONE-ACETAMINOPHEN Inactive DOXYCYCLINE HYCLATE 100 MG CAPS Take one (1) tablet by mouth twice a day DOXYCYCLINE HYCLATE 100 MG CAPS 177352 DOXYCYCLINE HYCLATE Inactive PENICILLIN V POTASSIUM 500 MG TAB 1 four times a day 2 PENICILLIN V POTASSIUM 500 MG TAB 362314 PENICILLIN V POTASSIUM [place] ctive PRISTIQ 50 MG [id number] 1 po qd PRISTIQ 50 MG [id number] DESVENLAFAXINE SUCCINATE Inactive TYLENOL/CODEINE #3 300-30 MG TAB 1-2 po q6hr PRN Pain TYLENOL/CODEINE #3 300-30 MG TAB 679536 ACETAMINOPHEN-CODEINE Inact krishna CEPHALEXIN 500 MG TABS Take one by mouth four times daily, morning, noon, early evening and bedtime. CEPHALEXIN 500 MG TABS 520289 CEPHALEXIN Inactive LORTAB 5 5-500 MG TABS 1/2 to 1 tablet by mouth go ry 6 hours as needed for pain LORTAB 5 5-500 MG TABS HYDROCODONE-A CETAMINOPHEN Inactive AMITRIPTYLINE HCL 25 MG TAB 1 tab by mouth daily 60 minutes before bedtime AMITRIPTYLINE HCL 25 MG TAB 279559 AMITRIPTYLINE HCL Inactive AMOXICILLIN 500 MG TABS 2 tabs PO bid x 10 d 7 AMOXICILLIN 500 MG TABS 547012 AMOXICILLIN Inactive IMPLANON 68 MG IMPL IMPLANTED IN LEFT ARM IMPLANON 68 MG IMPL ETONOGESTREL Inactive HYDROCODONE-ACETAMINOPHEN 5-325 MG TABS 1 PO tid PRN pain 5 HYDROCODONE-ACETAMINOPHEN 5-325 MG TABS 489638 HYDROCODONE-ACETAMIN OPHEN Inactive BACTRIM DS 800-160 MG TAB 1 tab by mouth twice daily 2 BACTRIM DS 800-160 MG TAB TRIMETHOPRIM-SULFAMETHOXAZOLE Inac tive CEPHALEXIN 500 MG CAPS 1 PO bid x 7 days CEPHALEXIN 500 MG CAPS 389176 CEPHALEXIN Inactive HYDROCODONE-ACETAMINOPHEN 5-325 MG TABS 1 tab by mouth every 6 hours as needed HYDROCODONE-ACETAMINOPHEN 5-325 MG TABS 563794 HYDROCODONE-ACETAMINOPHEN Inactive PROMETHAZINE-CODEINE 6.25-10 MG/5ML SYRP 1 tsp every 6 hrs prn c ough PROMETHAZINE-CODEINE 6.25-10 MG/5ML SYRP 903194 PROMETH AZINE-CODEINE Inactive IBUPROFEN 800 MG TAB 1 pill three times daily as needed for pain IBUPROFEN 800 MG TAB 377532 IBUPROFEN Inactive KEFLEX 500 MG CAP 1 tab po tid KEFLEX 500 MG CAP 955506 CEPHALEXIN Inactive HYDROCODONE-ACETAMINOPHEN 7.5-325 MG TABS 1 four times a day as needed for pain HYDROCODONE-ACETAMINOPHEN 7.5-325 MG TABS 295203 HYDROCODONE-ACETAMINOPHEN Inactive BACTRIM DS 800-160 MG TABS by mouth twice a day 11/05 BACTRIM DS 800-160 MG TABS SULFAMETHOXAZOLE-TRIMETHOPRIM Inactive AMOXICILLIN 875 MG TABS 1 tab by mouth twice daily 201 07/18/07 AMOXICILLIN 875 MG TABS 242208 AMOXICILLIN Inactive KEFLEX 500 MG CAP 1 po tid x 10 days KEFLEX 500 MG CAP 927713 CEPHALEXIN Inactive AMOXICILLIN 875 MG TABS 1 tab by mouth twice daily 201 07/19/27 AMOXICILLIN 875 MG TABS 607192 AMOXICILLIN Inactive AMOXICILLIN 875 MG TABS 1 tab by mouth twice daily 08/09/13 AMOXICILLIN 875 MG TABS 137385 AMOXICILLIN Inactive CIPRO 500 MG TAB 1 tablet by mouth twice daily CIPRO 500 MG TAB 405219 CIPROFLOXACIN HCL Inactive BACTRIM DS 800-160 MG TAB 1 tab by mouth twice daily 2 BACTRIM DS 800-160 MG TAB TRIMETHOPRIM-SULFAMETHOXAZOLE Inac tive LEVAQUIN 500 MG TABS 1 PO q day x 7 days LEVAQUIN 500 MG TABS 861853 LEVOFLOXACIN Inactive Advance Directives Directive Description Start Date PERMISSION TO SHARE Immunizations Vaccine Administration Date Value Standard Alf cription Seasonal influenza vaccine, injectable, containing preservative, for > 3 years old (Afluria, FluLaval, Fluzone, Fluvirin, Fluarix, Agriflu(>= 18 yo)) Fluzone (>3 yrs.) [[id number]] Influenza, seasonal, inject able Seasonal influenza vaccine, injectable, preservative free, for > 3 years old (Afluria, FluLaval, Fluzone, Fluvirin, Fluarix, Agriflu(>= 18 yo)) Fluzone preservative free (>3 yrs.) [[id number]] Influenza, seasonal, injectable, preservative free Seasonal influenza vaccine, injectable, containing preservative, for > 3 years old (Afluria, FluLaval, Fluzone, Fluvirin, Fluarix, Agriflu(>= 18 yo)) Fluzone (>3 yrs.) [[id number]] Influenza, seasonal, inject able Seasonal influenza vaccine, injectable, containing preservative, for > 3 years old (Afluria, FluLaval, Fluzone, Fluvirin, Fluarix, Agriflu(>= 18 yo)) Fluzone (>3 yrs.) [PFH349] Influenza, seasonal, inject able dT (Diphtheria and [...] mg/dL Chart Maintenance: Outside labs entered on [employer] - Hematology leukocyte count, blood 8.3 10*3/mm3 erythrocyte (RBC) count 5.2 10*6/mm3 hemoglobin, blood 14.2 g/dL hematocrit, blood 42.6 % mean corpuscular volume, RBC 82.4 fL mean corpuscular hemoglobin, RBC 27.5 pg red blood cell distribution width 12.9 % platelet count 316 10*3/mm3 Lab Report: CBC W/DIFF, Comp. Metabolic Panel, Thyroid Stimulating Hormo ... - Chemistry sodium, serum 140 mmol/L 503-281 5006/02/24 potassium, serum 4.3 mmol/L 3.5-5.2 chloride, serum [...] 4.3-6.0 Lab Report: T3, TOTAL, INSULIN - Coach Driver ry triiodothyronine, serum 78 ng/dL 76-181 Lab [...] mg/dL Encounters Code Encounter Date Provider Facility CPT-77710 Level 3 Est. Patient 14:11:58 CDT Kalpesh goins MD [facility] CPT-57058 Level 3 Est. Patient 16:50:00 CDT Michelle MERCADO [facility] CPT-93491 Level 3 Est. Patient 17:11:32 INFORMATION COORDINATOR Brandie bates MD PhD [facility] CPT-12102 Level 3 Est. Patient 16:31:47 INFORMATION COORDINATOR Shola MCGILL [facility] CPT-06891 Level 3 Est. Patient 17:51:10 INFORMATION COORDINATOR Abhinav Galvan MD [facility] CPT-26675 Level 4 Est. Patient 12:54:56 INFORMATION COORDINATOR Kalpesh goins MD [facility] CPT-64757 Level 4 Est. Patient 12:53:56 INFORMATION COORDINATOR Kalpesh goins MD [facility] CPT-61289 Level 3 Est. Patient 17:56:58 CDT Shola MCGILL [facility] CPT-94801 Level 3 Est. Patient 14:26:20 CDT Janak butcher [facility] CPT-81032 Level 3 Est. Patient 09:38:41 CDT Shola Wright [facility] CPT-89616 Level 3 Est. Patient 14:45:26 CDT Edilberto tiwari [facility] CPT-94908 Level 3 Est. Patient 10:51:33 CDT Hira muniz [facility] CPT-09446 Level 3 Est. Patient 11:57:55 INFORMATION COORDINATOR Shola Thao Adriana [facility] CPT-10509 Level 3 Est. Patient 09:53:33 INFORMATION COORDINATOR Edilberto tiwari [facility] CPT-21745 Level 3 Est. Patient 14:42:54 INFORMATION COORDINATOR Abhinav Galvan MD [facility] CPT-16549 Level 3 Est. Patient 15:10:02 CDT Janak butcher [facility] CPT-84527 Level 3 Est. Patient 15:20:20 CDT Theo dennis MD [facility] CPT-35661 Level 2 Est. Patient 14:08:57 CDT Kalpesh goins MD [facility] CPT-94605 Level 3 Est. Patient 13:56:19 CDT Abdirahman Rios MD [facility] CPT-66545 Level 3 Est. Patient 13:59:37 CDT Abdirahman Rios MD [facility] CPT-51485 Level 2 Est. Patient 14:44:59 CDT Kalpesh goins MD [facility]-57532 Level 3 Est. Patient 06:06:23 CDT Edilberto tiwari [facility] CPT-54195 Level 3 Est. Patient 15:23:54 CDT Abdirahman Rios MD [facility] CPT-88295 Level 3 Est. Patient 15:43:49 CDT Abdirahman Rios MD [facility] CPT-67956 Level 3 Est. Patient 12:46:47 INFORMATION COORDINATOR Abdirahman Rios MD [facility] CPT-70935 Level 3 Est. Patient 08:13:35 INFORMATION COORDINATOR Abdirahman Rios MD [facility] CPT-52397 Level 2 Est. Patient 09:36:42 INFORMATION COORDINATOR Abdirahman Rios MD [facility] CPT-40242 Level 3 Est. Patient 10:56:43 CDT Abdirahman Rios MD [facility] CPT-01177 Level 3 Est. Patient 18:24:52 CDT Abdirahman Rios MD [facility] CPT-28648 Level 3 Est. Patient 13:27:22 CDT Abdirahman Rios MD [facility] Procedures Code Procedure Name Date Entry Date Standard Desc ription CPT-OV Office Visit 15:34:48 CDT CPT-19614 Postop F/U Visit 14:50:12 CDT CPT-10504 Postop F/U Visit 14:41:10 CDT CPT-35446 Venipuncture Draw Fee 11:38:04 INFORMATION COORDINATOR CPT-01721 Postop F/U Visit 19:02:59 INFORMATION COORDINATOR CPT-72279 Postop F/U Visit 12:04:54 INFORMATION COORDINATOR CPT-20629 Administration single or combination vac cine inc oral 15:56:43 CDT CPT-58380 Influenza split virus > age 3 15:56:43 CDT CPT-12939 Hand comp min 3V 14:25:19 CDT CPT-35004 Postop F/U Visit 21:40:51 CDT CPT-77668 Postop F/U Visit 10:58:43 CDT CPT-71790 Administration single or combination vac cine inc oral 12:33:54 INFORMATION COORDINATOR CPT-35467 Influenza Preservative Free split virus >age 3 12:33:54 INFORMATION COORDINATOR CPT-14899 Administration single or combination vac cine inc oral 09:30:51 CDT CPT-26405 Influenza split virus > age 3 09:30:51 CDT CPT-05268 Postop F/U Visit 15:14:53 CDT CPT-36193 Postop F/U Visit 13:50:14 CDT CPT-14398 Postop F/U Visit 13:34:52 CDT CPT-OV Office Visit 16:55:03 CDT CPT-78911 [place] of cervix w bx ECC 13:32:50 CDT 10/19 CPT-J1885 Toradol 60 mg (Ketorolac) 15:31:59 CDT 2011 CPT-J1885 Toradol 60 mg (Ketorolac) 15:23:54 CDT 2011 CPT-79660 Visit 11:34:37 INFORMATION COORDINATOR CPT-10107 Visit 10:52:39 INFORMATION COORDINATOR CPT-46687 Visit 10:12:02 INFORMATION COORDINATOR CPT-72899 Visit 11:22:43 INFORMATION COORDINATOR CPT-27301 Visit 11:24:12 INFORMATION COORDINATOR CPT-23492 Visit 10:47:05 INFORMATION COORDINATOR CPT-OV Office Visit 10:26:16 INFORMATION COORDINATOR CPT-OV Office Visit 15:34:31 INFORMATION COORDINATOR CPT-43828 Visit 10:42:08 INFORMATION COORDINATOR CPT-28573 Visit 10:52:45 INFORMATION COORDINATOR CPT-000 Give Appropriate Flu Vaccine 16:56:41 CDT 2 CPT-24487 Administration single or combination vac cine inc oral 10:33:21 CDT CPT-42392 Influenza split virus > age 3 10:33:21 CDT CPT-73134 Visit 13:23:09 CDT CPT-26744 Visit 18:24:52 CDT CPT-16607 Sono OB comp > 14 weeks 12:07:49 CDT 04/07
--- OUTSIDE RECORDS SUMMARY | 2020-01-18 17:05 | XMS REPORT | Clinical Summary ---
Author Author Avery, Jeri Rashid Organization [facility] Address Unknown Phone Unavailable Allergies, Adverse [...] MCGILL Sprain of unspecified site of back , INCIDENTAL PROBLEM ICD-V22.2 Inacti ve Abdirahman [...] Generic Name NDC Status Provider Patient Instruction LIDODERM 5 % PTCH One patch to painful area NC N. On for 12 hrs, off for 12 hrs. LIDOCAINE [id number] Active Kate Arredondo A ctive CYCLOBENZAPRINE HCL 10 MG TABS 1/2 - 1 tab PO tid PRN back p ain, muscle spasm CYCLOBENZAPRINE HCL 34569072907 Active Kate Arredondo Active PERCOCET 7.5-325 MG TABS 1 PO tid PRN pain OXYC ODONE-ACETAMINOPHEN 59999230476 Active Kate Arredondo Active MOBIC 15 MG TABS 1 tab daily MELOXICAM 07212091001 Ac tive Good Julian MD Active PERCOCET 7.5-325 MG TABS 1 PO q 8 hrs PRN pain OXYCODONE-ACETAMINOPHEN 35919872123 No Longer Active Shola MCGILL Active HYDROCODONE-ACETAMINOPHEN 10-325 MG TABS 1 by mouth ev chaka 8 hours as needed for pain HYDROCODONE-ACETAMINOPHEN 61679962101 Active Shola MCGILL Active HYDROCODONE-ACETAMINOPHEN 7.5-325 MG TABS 1 by mouth e very 6 hours as needed for pain HYDROCODONE-ACETAMINOPHEN 19356968054 No Longer Active Good Julian MD Active LC-5 LIDOCAINE 5 % CREA apply 1 time daily to affected area LIDOCAINE (ANORECTAL) 15995799189 Active Shola MCGILL Active CLINDAMYCIN HCL 300 MG CAPS 1 po QID x 7 days CLINDAMYCIN HCL 33924980834 No Longer Active Abdirahman Rios MD Activ e BACTRIM DS 800-160 MG TABS 1 po BID x 7 days 5 SULFAMETHOXAZOLE-TRIMETHOPRIM 56553758798 No Longer Active Abdirahman Rios MD Active ENDOCET 10-325 MG TABS 1 q 6 hr prn OXYCODONE-ACETAMINOPHEN 06000167943 No Longer Active Abdirahman Rios MD Active IBUPROFEN 800 MG TABS 1 tid prn IBUPROFEN 726811 37014 No Longer Active Abdirahman Rios MD Active BACTRIM DS 800-160 MG TABS by mouth twice a day 11/05 SULFAMETHOXAZOLE-TRIMETHOPRIM 59693566118 No Longer Active Good Julian MD Active HYDROCODONE-ACETAMINOPHEN 7.5-325 MG TABS 1 four times a day as needed for pain HYDROCODONE-ACETAMINOPHEN 16498528751 No Longer Activ e Good Julian MD Active KEFLEX 500 MG CAP 1 tab po tid CEPHALEXIN 384900 54700 No Longer Active Hira Moser APRN Active IBUPROFEN 800 MG TAB 1 pill three times daily as needed for pain IBUPROFEN 98498347458 No Longer Active Kalpesh Dong MD Active PROMETHAZINE-CODEINE 6.25-10 MG/5ML SYRP 1 tsp every 6 hrs prn c ough PROMETHAZINE-CODEINE 86480947799 No Longer Active Kalpesh Carr Active ALPRAZOLAM 0.5 MG TABS 1 PO bid PRN ALPRAZOLAM 127884 62531 Active Shola MCGILL Active HYDROCODONE-ACETAMINOPHEN 5-325 MG TABS 1 tab by mouth every 6 hours as needed HYDROCODONE-ACETAMINOPHEN 52013400854 No Longer Activ e Shola MCGILL Active CEPHALEXIN 500 MG CAPS 1 PO bid x 7 days CEPHAL EXIN 03248397115 No Longer Active Shola MCGILL Active BACTRIM DS 800-160 MG TAB 1 tab by mouth twice daily 2 TRIMETHOPRIM-SULFAMETHOXAZOLE 46693238261 No Longer Active Kalpesh Dong MD Active HYDROCODONE-ACETAMINOPHEN 5-325 MG TABS 1 PO tid PRN pain 5 HYDROCODONE-ACETAMINOPHEN 52688088868 No Longer Active Abhinav Galvan MD Active IMPLANON 68 MG IMPL IMPLANTED IN LEFT ARM ETONO GESTREL 60207576730 No Longer Active Hira Moser APRN Active AMOXICILLIN 500 MG TABS 2 tabs PO bid x 10 d AM OXICILLIN 76769705275 No Longer Active Kalpesh Dong MD Active LEVAQUIN 500 MG TABS 1 PO q day x 7 days LEVOFL OXACIN 32151095937 No Longer Active Shola MCGILL Active PROAIR HFA 108 (90 BASE) MCG/ACT AERS 2 puff q 4-6 hrs PRN ALBUTEROL SULFATE 18627295829 Active Shola MCGILL Acti ve FIORICET 50-325-40 MG TABS 2 PO q 8 hrs PRN FOSTER [id number] Active Shola MCGILL Active AMITRIPTYLINE HCL 25 MG TAB 1 tab by mouth daily 60 minutes before bedtime AMITRIPTYLINE HCL 78607756944 No Longer Active Shola MCGILL Active LORTAB 5 5-500 MG TABS 1/2 to 1 tablet by mouth go ry 6 hours as needed for pain HYDROCODONE-ACETAMINOPHEN 45985159610 No Longer Active Shola MCGILL Active CEPHALEXIN 500 MG TABS Take one by mouth four times daily, morning, noon, early evening and bedtime. CEPHALEXIN 28230563358 No Long er Active Hira Moser ASSISTANT PROFESSOR OF CHEMISTRY Active TYLENOL/CODEINE #3 300-30 MG TAB 1-2 po q6hr PRN Pain ACETAMINOPHEN-CODEINE 41999685779 No Longer Active Edilberto Marino DO Active PRISTIQ 50 MG [id number] 1 po qd DESVENLAFAXI NE SUCCINATE 58748158845 No Longer Active Edilberto Marino DO Active PENICILLIN V POTASSIUM 500 MG TAB 1 four times a day 2 PENICILLIN V POTASSIUM 01101625487 No Longer Active Edilberto Marino DO Active DOXYCYCLINE HYCLATE 100 MG CAPS Take one (1) tablet by mouth twice a day DOXYCYCLINE HYCLATE 15194437645 No Longer Active Ronnie Galvan MD Active HYDROCODONE-ACETAMINOPHEN 5-325 MG TABS 1 po q 6hr PRN Pain 2011 HYDROCODONE-ACETAMINOPHEN 77247616041 No Longer Active Jerson Perez RN Active BACTRIM DS 800-160 MG TAB 1 tab by mouth twice daily 2 TRIMETHOPRIM-SULFAMETHOXAZOLE 69472162773 No Longer Active Kalpesh Dong MD Active LORTAB 5 5-500 MG TABS 1/2 to 1 tablet by mouth go ry 4 hours as needed for pain HYDROCODONE-ACETAMINOPHEN 78341112169 No Longer Active Kalpesh Dong MD Active GENERESS FE 0.8-25 MG-MCG CHEW Take one by mouth daily NORETHIN-ETH ESTRADIOL-FE 63800014940 No Longer Active Kalpesh Dong MD Active HYDROCODONE-ACETAMINOPHEN 7.5-500 MG TABS 1-2 every 4 hours as needed HYDROCODONE-ACETAMINOPHEN 65624776322 No Longer Activ e Kalpesh Dong MD Active FERROUS SULFATE 325 (65 FE) MG TABS 1 tablet by mouth twice yung y FERROUS SULFATE 70098002841 No Longer Active Kalpesh Dong MD Active IBUPROFEN 600 MG TAB 1 po q6-8hr PRN IBUPROFEN 22891843754 No Longer Active Kalpesh Dong MD Active SPIRONOLACTONE 25 MG TAB 1 tablet by mouth daily 01/22 SPIRONOLACTONE 33064165129 No Longer Active Kalpesh Dong MD Acti ve HYDROCODONE-ACETAMINOPHEN 7.5-325 MG TABS 1 po QID PRN Pain 2011 HYDROCODONE-ACETAMINOPHEN 33393548909 No Longer Active Kalpesh Dong MD Active CLINDAMYCIN HCL 300 MG CAPS 1 po q6hr x 7 days CLINDAMYCIN HCL 87951128290 No Longer Active Edilberto Marino DO Active PREDNISONE 20 MG TAB 2 tabs daily for 4 days, 1 t ab daily for 4 days, 1/2 tab daily for 4 days PREDNISONE 77761118845 No Longer Active Edilberto Marino DO Active PERCOCET 5-325 MG TABS 1 tablet by mouth every 6 hours as ne eded for pain OXYCODONE-ACETAMINOPHEN 01136732791 No Longer Active Abdirahman Rios MD Active VITAMINS TABS Take one by mouth daily MV & MIN W/FE-FA TABS 77809774413 No Longer Active Abdirahman Rios MD Active LUIS 3-0.02 MG TABS 1 tablet by mouth daily as directed DROSPIRENONE-ETHINYL ESTRADIOL 95474282667 No Longer Active Abdirahman Rios MD Active LORATADINE 10 MG TABS 1 tablet by mouth daily L ORATADINE 82208308948 No Longer Active Kalpesh Dong MD Active HYDROCODONE-ACETAMINOPHEN 5-325 MG TABS 1 po q 6hr PRN Pain 2010 HYDROCODONE-ACETAMINOPHEN 24909914321 No Longer Active Edilberto Marino DO Active BACTRIM DS 800-160 MG TAB 1 tab by mouth twice daily 2 TRIMETHOPRIM-SULFAMETHOXAZOLE 25048297727 No Longer Active Abdirahman Rios MD Active 28-0.8 MG TABS Take one by mouth daily 09/20 VIT-FE FUMARATE-FA 85966771816 No Longer Active Abdirahman Rios MD Active CIPRO 500 MG TAB 1 tablet by mouth twice daily CIPROFLOXACIN HCL 15193315628 No Longer Active Abdirahman Rios MD Active BENADRYL 25 MG CAP 1 po q8hr PRN Congestion DIPHENHYDRAMINE HCL 65917365066 No Longer Active Abdirahman Rios MD Active ZOLOFT 50 MG TAB 1 po qd SERTRALINE HCL 790692 25444 No Longer Active Abdirahman Rios MD Active AMOXICILLIN 875 MG TABS 1 tab by mouth twice daily 201 08/09/13 AMOXICILLIN 22029024429 No Longer Active Abdirahman Rios MD Activ e AMOXICILLIN 875 MG TABS 1 tab by mouth twice daily 201 07/19/27 AMOXICILLIN 70466977467 No Longer Active Abdirahman Rios MD Activ e BACTRIM DS 800-160 MG TAB 2 tab by mouth twice daily 2 TRIMETHOPRIM-SULFAMETHOXAZOLE 88941314024 No Longer Active Abdirahman Rios MD Active KEFLEX 500 MG CAP 1 po tid x 10 days CEPHALEXIN 26984167089 No Longer Active Abdirahman Rios MD Active AMOXICILLIN 875 MG TABS 1 tab by mouth twice daily 201 07/18/07 AMOXICILLIN 53874034398 No Longer Active Abdirahman Rios MD Activ e BACTRIM DS 800-160 MG TAB 2 tab by mouth twice daily 2 BACTRIM DS 800-160 MG TAB TRIMETHOPRIM-SULFAMETHOXAZOLE Inactive ZOLOFT 50 MG TAB 1 po qd ZOLOFT 50 MG TAB 3129 41 SERTRALINE HCL Inactive BENADRYL 25 MG CAP 1 po q8hr PRN Congestion BENADRYL 25 MG CAP 0985282 DIPHENHYDRAMINE HCL Inactive 28-0.8 MG TABS Take one by mouth daily 09/20 28-0.8 MG TABS VIT-FE FUMARATE-FA Inactive HYDROCODONE-ACETAMINOPHEN 5-325 MG TABS 1 po q 6hr PRN Pain 2010 HYDROCODONE-ACETAMINOPHEN 5-325 MG TABS 268368 HYDROCODONE-ACETAMINOPHEN Inactive LORATADINE 10 MG TABS 1 tablet by mouth daily LORATADINE 10 MG TABS 031333 LORATADINE Inactive LUIS 3-0.02 MG TABS 1 tablet by mouth daily as directed LUIS 3-0.02 MG TABS DROSPIRENONE-ETHINYL ESTRADIOL Inactive VITAMINS TABS Take one by mouth daily VITAMINS TABS MV & MIN W/FE-FA TABS Inactive PERCOCET 5-325 MG TABS 1 tablet by mouth every 6 hours as ne eded for pain PERCOCET 5-325 MG TABS 1697724 OXYCODONE-ACETAMIN OPHEN Inactive PREDNISONE 20 MG TAB 2 tabs daily for 4 days, 1 t ab daily for 4 days, 1/2 tab daily for 4 days PREDNISONE 20 MG TAB 682877 PREDNISON E Inactive CLINDAMYCIN HCL 300 MG CAPS 1 po q6hr x 7 days CLINDAMYCIN HCL 300 MG CAPS 070856 CLINDAMYCIN HCL Inactive HYDROCODONE-ACETAMINOPHEN 7.5-325 MG TABS 1 po QID PRN Pain 2011 HYDROCODONE-ACETAMINOPHEN 7.5-325 MG TABS 681074 HYDROCODONE-ACETAMINOPHEN Inactive SPIRONOLACTONE 25 MG TAB 1 tablet by mouth daily 01/22 SPIRONOLACTONE 25 MG TAB 811982 SPIRONOLACTONE Inactive IBUPROFEN 600 MG TAB 1 po q6-8hr PRN IBUPROFEN 600 MG TAB 972536 IBUPROFEN Inactive FERROUS SULFATE 325 (65 FE) MG TABS 1 tablet by mouth twice yung y FERROUS SULFATE 325 (65 FE) MG TABS 898446 FERROUS SULF ATE Inactive HYDROCODONE-ACETAMINOPHEN 7.5-500 MG [...] PRN Pain 2011 HYDROCODONE-ACETAMINOPHEN 5-325 MG TABS 525820 HYDROCODONE-ACETAMINOPHEN Inactive DOXYCYCLINE HYCLATE 100 MG CAPS Take one (1) tablet by mouth twice a day DOXYCYCLINE HYCLATE 100 MG CAPS 665213 DOXYCYCLINE HYCLATE Inactive PENICILLIN V POTASSIUM 500 MG TAB 1 four times a day 2 PENICILLIN V POTASSIUM 500 MG TAB 078694 PENICILLIN V POTASSIUM Stamps ctive PRISTIQ 50 MG [id number] 1 po qd PRISTIQ 50 MG [id number] DESVENLAFAXINE SUCCINATE Inactive TYLENOL/CODEINE #3 300-30 MG TAB 1-2 po q6hr PRN Pain TYLENOL/CODEINE #3 300-30 MG TAB 745586 ACETAMINOPHEN-CODEINE Inact krishna CEPHALEXIN 500 MG TABS Take one by mouth four times daily, morning, noon, early evening and bedtime. CEPHALEXIN 500 MG TABS 363918 CEPHALEXIN Inactive LORTAB 5 5-500 MG TABS 1/2 to 1 tablet by mouth go ry 6 hours as needed for pain LORTAB 5 5-500 MG TABS HYDROCODONE-A CETAMINOPHEN Inactive AMITRIPTYLINE HCL 25 MG TAB 1 tab by mouth daily 60 minutes before bedtime AMITRIPTYLINE HCL 25 MG TAB 588835 AMITRIPTYLINE HCL Inactive AMOXICILLIN 500 MG TABS 2 tabs PO bid x 10 d 7 AMOXICILLIN 500 MG TABS 334847 AMOXICILLIN Inactive IMPLANON 68 MG IMPL IMPLANTED IN LEFT ARM IMPLANON 68 MG IMPL ETONOGESTREL Inactive HYDROCODONE-ACETAMINOPHEN 5-325 MG TABS 1 PO tid PRN pain 5 HYDROCODONE-ACETAMINOPHEN 5-325 MG TABS 705109 HYDROCODONE-ACETAMIN OPHEN Inactive BACTRIM DS 800-160 MG TAB 1 tab by mouth twice daily 2 BACTRIM DS 800-160 MG TAB TRIMETHOPRIM-SULFAMETHOXAZOLE Inac tive CEPHALEXIN 500 MG CAPS 1 PO bid x 7 days CEPHALEXIN 500 MG CAPS 473097 CEPHALEXIN Inactive HYDROCODONE-ACETAMINOPHEN 5-325 MG TABS 1 tab by mouth every 6 hours as needed HYDROCODONE-ACETAMINOPHEN 5-325 MG TABS 583825 HYDROCODONE-ACETAMINOPHEN Inactive PROMETHAZINE-CODEINE 6.25-10 MG/5ML SYRP 1 tsp every 6 hrs prn c ough PROMETHAZINE-CODEINE 6.25-10 MG/5ML SYRP 224275 PROMETH AZINE-CODEINE Inactive IBUPROFEN 800 MG TAB 1 pill three times daily as needed for pain IBUPROFEN 800 MG TAB 044060 IBUPROFEN Inactive KEFLEX 500 MG CAP 1 tab po tid KEFLEX 500 MG CAP 802599 CEPHALEXIN Inactive HYDROCODONE-ACETAMINOPHEN 7.5-325 MG TABS 1 four times a day as needed for pain HYDROCODONE-ACETAMINOPHEN 7.5-325 MG TABS 733386 HYDROCODONE-ACETAMINOPHEN Inactive BACTRIM DS 800-160 MG TABS by mouth twice a day 11/05 BACTRIM DS 800-160 MG TABS SULFAMETHOXAZOLE-TRIMETHOPRIM Inactive IBUPROFEN 800 MG TABS 1 tid prn IBUPROFEN 800 MG TABS 608222 IBUPROFEN Inactive ENDOCET 10-325 MG TABS 1 q 6 hr prn ENDOC ET 10-325 MG TABS 3252995 OXYCODONE-ACETAMINOPHEN Inactive HYDROCODONE-ACETAMINOPHEN 7.5-325 MG TABS 1 by mouth e very 6 hours as needed for pain HYDROCODONE-ACETAMINOPHEN 7.5-325 MG TABS 253474 HYDROCODONE-ACETAMINOPHEN Inactive PERCOCET 7.5-325 MG TABS 1 PO q 8 hrs PRN pain PERCOCET 7.5-325 MG TABS 1244202 OXYCODONE-ACETAMINOPHEN Inactive AMOXICILLIN 875 MG TABS 1 tab by mouth twice daily 201 07/18/07 AMOXICILLIN 875 MG TABS 131490 AMOXICILLIN Inactive KEFLEX 500 MG CAP 1 po tid x 10 days KEFLEX 500 MG CAP 615515 CEPHALEXIN Inactive AMOXICILLIN 875 MG TABS 1 tab by mouth twice daily 201 07/19/27 AMOXICILLIN 875 MG TABS 996504 AMOXICILLIN Inactive AMOXICILLIN 875 MG TABS 1 tab by mouth twice daily 201 08/09/13 AMOXICILLIN 875 MG TABS 722246 AMOXICILLIN Inactive CIPRO 500 MG TAB 1 tablet by mouth twice daily CIPRO 500 MG TAB 454602 CIPROFLOXACIN HCL Inactive BACTRIM DS 800-160 MG TAB 1 tab by mouth twice daily 2 BACTRIM DS 800-160 MG TAB TRIMETHOPRIM-SULFAMETHOXAZOLE Inac tive LEVAQUIN 500 MG TABS 1 PO q day x 7 days LEVAQUIN 500 MG TABS 360539 LEVOFLOXACIN Inactive CLINDAMYCIN HCL 300 MG CAPS 1 po QID x 7 days CLINDAMYCIN HCL 300 MG CAPS 992354 CLINDAMYCIN HCL Inactive Advance Directives Directive Description Start Date PERMISSION TO SHARE Immunizations Vaccine Administration Date Value Standard Alf cription Seasonal influenza vaccine, injectable, containing preservative, for > 3 years old (Afluria, FluLaval, Fluzone, Fluvirin, Fluarix, Agriflu(>= 18 yo)) Fluzone (>3 yrs.) [[id number]] Influenza, seasonal, inject able Seasonal influenza vaccine, injectable, preservative free, for > 3 years old (Afluria, FluLaval, Fluzone, Fluvirin, Fluarix, Agriflu(>= 18 yo)) Fluzone preservative free (>3 yrs.) [[id number]] Influenza, seasonal, injectable, preservative free Seasonal influenza vaccine, injectable, containing preservative, for > 3 years old (Afluria, FluLaval, Fluzone, Fluvirin, Fluarix, Agriflu(>= 18 yo)) Fluzone (>3 yrs.) [[id number]] Influenza, seasonal, inject able Seasonal influenza vaccine, injectable, containing preservative, for > 3 years old (Afluria, FluLaval, Fluzone, Fluvirin, Fluarix, Agriflu(>= 18 yo)) Fluzone (>3 yrs.) [[id number]] Influenza, seasonal, inject able dT (Diphtheria and Tetanus) booster Historical Td(adult) unspecified formulation Vital Signs Date Name Value Unit Range Description blood pressure, diastolic 78 mm[Hg] BP ribeiro blood pressure, systolic 104 mm[Hg] BP sys height E&M 65 [in_us] Bdy height pulse rate E&M 72 /min Heart rate temperature E&M 96.5 [degF] Body temp erature weight E&M 232 [lb_av] Weight Measure d blood pressure, diastolic [...] ... - Chemistry sodium, serum 140 mmol/L 326-707 0687/02/24 potassium, serum 4.3 mmol/L 3.5-5.2 chloride, serum [...] 4.3-6.0 Lab Report: T3, TOTAL, INSULIN - [employer] ry triiodothyronine, serum 78 ng/dL 76-181 Lab [...] mg/dL Encounters Code Encounter Date Provider Facility CPT-31556 Level 3 Est. Patient 18:12:34 CDT Shola Wright [facility] CPT-57918 Level 3 Est. Patient 19:34:[address] [facility] CPT-94981 Level 3 Est. Patient 14:19:37 CDT Abdirahman Rios MD [facility] CPT-57523 Level 3 Est. Patient 14:11:58 CDT Kalpesh goins MD [facility] CPT-77554 Level 3 Est. Patient 16:50:00 CDT Michelle MERCADO [facility] CPT-61730 Level 3 Est. Patient 17:11:32 SLUG PRESS OPERATOR Brandie bates MD PhD [facility] CPT-98297 Level 3 Est. Patient 16:31:47 SLUG PRESS OPERATOR Shola Wright [facility] CPT-14140 Level 3 Est. Patient 17:51:10 SLUG PRESS OPERATOR Abhinav Galvan MD [facility] CPT-81494 Level 4 Est. Patient 12:54:56 SLUG PRESS OPERATOR Kalpesh goins MD [facility] CPT-65981 Level 4 Est. Patient 12:53:56 SLUG PRESS OPERATOR Kalpesh goins MD [facility] CPT-03888 Level 3 Est. Patient 17:56:[address] [facility] CPT-58544 Level 3 Est. Patient 14:26:[address] [facility] CPT-01335 Level 3 Est. Patient 09:38:[address] [facility] CPT-58523 Level 3 Est. Patient 14:45:26 CDT Edilberto tiwari [facility] CPT-22086 Level 3 Est. Patient 10:51:33 [facility] Level [facility] Est. Patient 11:57:55 SLUG PRESS OPERATOR Shola Wright [facility] CPT-63047 Level 3 Est. Patient 09:53:33 SLUG PRESS OPERATOR Edilberto tiwari [facility] CPT-80942 Level 3 Est. Patient 14:42:54 SLUG PRESS OPERATOR Abhinav Galvan MD [facility] CPT-08038 Level 3 Est. Patient 15:10:02 CDT Janak butcher [facility] CPT-53801 Level 3 Est. Patient 15:20:20 CDT Theo dennis MD [facility]-86734 Level 2 Est. Patient 14:08:57 CDT Kalpesh goins MD [facility] CPT-93589 Level 3 Est. Patient 13:56:19 CDT Abdirahman Rios MD [facility] CPT-15892 Level 3 Est. Patient 13:59:37 CDT Abdirahman Rios MD [facility] CPT-07039 Level 2 Est. Patient 14:44:59 CDT Kalpesh goins MD [facility]-92812 Level 3 Est. Patient 06:06:23 CDT Edilberto tiwari [facility] CPT-63564 Level 3 Est. Patient 15:23:54 CDT Abdirahman Rios MD [facility] CPT-57881 Level 3 Est. Patient 15:43:49 CDT Abdirahman Rios MD [facility] CPT-47355 Level 3 Est. Patient 12:46:47 SLUG PRESS OPERATOR Abdirahman Rios MD [facility] CPT-50174 Level 3 Est. Patient 08:13:35 SLUG PRESS OPERATOR Abdirahman Rios MD [facility] CPT-26036 Level 2 Est. Patient 09:36:42 SLUG PRESS OPERATOR Abdirahman Rios MD [facility] CPT-50823 Level 3 Est. Patient 10:56:43 CDT Abdirahman Rios MD [facility] CPT-10311 Level 3 Est. Patient 18:24:52 CDT Abdirahman Rios MD [facility] CPT-75323 Level 3 Est. Patient 13:27:22 CDT Abdirahman Rios MD [facility] Procedures Code Procedure Name Date Entry Date Standard Desc ription CPT-47397 Immunization Single Admin 16:41:53 CDT 2013 CPT-79957 Fluzone Quadrivalent Intramuscular Suspe nsion 0.5 ML 16:41:53 CDT CPT-OV Office Visit 16:39:18 CDT CPT-OV Office Visit 16:16:36 CDT CPT-OV Office Visit 15:34:48 CDT CPT-03127 Postop F/U Visit 14:50:12 CDT CPT-19960 Postop F/U Visit 14:41:10 CDT CPT-31117 Venipuncture Draw Fee 11:38:04 SLUG PRESS OPERATOR CPT-87872 Postop F/U Visit 19:02:59 SLUG PRESS OPERATOR CPT-60326 Postop F/U Visit 12:04:54 SLUG PRESS OPERATOR CPT-78621 Administration single or combination vac cine inc oral 15:56:43 CDT CPT-40679 Influenza split virus > age 3 15:56:43 CDT CPT-14048 Hand comp min 3V 14:25:19 CDT CPT-66167 Postop F/U Visit 21:40:51 CDT CPT-94977 Postop F/U Visit 10:58:43 CDT CPT-12427 Administration single or combination vac cine inc oral 12:33:54 SLUG PRESS OPERATOR CPT-61061 Influenza Preservative Free split virus >age 3 12:33:54 SLUG PRESS OPERATOR CPT-08287 Administration single or combination vac cine inc oral 09:30:51 CDT CPT-74710 Influenza split virus > age 3 09:30:51 CDT CPT-44633 Postop F/U Visit 15:14:53 CDT CPT-09757 Postop F/U Visit 13:50:14 CDT CPT-88475 Postop F/U Visit 13:34:52 CDT CPT-OV Office Visit 16:55:03 CDT CPT-56254 [place] of cervix w bx ECC 13:32:50 CDT 10/19 CPT-J1885 Toradol 60 mg (Ketorolac) 15:31:59 CDT 2011 CPT-J1885 Toradol 60 mg (Ketorolac) 15:23:54 CDT 2011 CPT-24592 Visit 11:34:37 SLUG PRESS OPERATOR CPT-13655 Visit 10:52:39 SLUG PRESS OPERATOR CPT-84268 Visit 10:12:02 SLUG PRESS OPERATOR CPT-60674 Visit 11:22:43 SLUG PRESS OPERATOR CPT-33409 Visit 11:24:12 SLUG PRESS OPERATOR CPT-01957 Visit 10:47:05 SLUG PRESS OPERATOR CPT-OV Office Visit 10:26:16 SLUG PRESS OPERATOR CPT-OV Office Visit 15:34:31 SLUG PRESS OPERATOR CPT-53641 Visit 10:42:08 SLUG PRESS OPERATOR CPT-98912 Visit 10:52:45 SLUG PRESS OPERATOR CPT-000 Give Appropriate Flu Vaccine 16:56:41 CDT 2 CPT-46716 Administration single or combination vac cine inc oral 10:33:21 CDT CPT-68770 Influenza split virus > age 3 10:33:21 CDT CPT-53862 Visit 13:23:09 CDT CPT-75073 Visit 18:24:52 CDT CPT-82755 Sono OB comp > 14 weeks 12:07:49 CDT 04/07
--- OUTSIDE RECORDS SUMMARY | 2020-01-18 17:06 | XMS REPORT | Clinical Summary ---
Author Author Admin, Jeri Rashid Organization [facility] Address Unknown Phone Allergies, Adverse Reactions, [...] Carr Acute pharyngitis HEALTH SCREENING V70.0 Resolved Godo melchor MD Routine general medical examination at [...] by mouth twice a day 11/05 SULFAMETHOXAZOLE-TRIMETHOPRIM [id number] No Longer Active Good Julian MD Active IBUPROFEN 800 MG TABS 1 tid prn IBUPROFEN 11938408112 Active Good Julian MD Active ENDOCET 10-325 MG TABS 1 q 6 hr prn OXYCODONE-A CETAMINOPHEN 93751542935 Active Shola MCGILL Active HYDROCODONE-ACETAMINOPHEN 7.5-325 MG TABS 1 four times a day as needed for pain HYDROCODONE-ACETAMINOPHEN 65594082287 No Longer Activ crystal Julian MD Active KEFLEX 500 MG CAP 1 tab po tid CEPHALEXIN 784345 36270 No Longer Active Hira Moser APRN Active IBUPROFEN 800 MG TAB 1 pill three times daily as needed for pain IBUPROFEN 36793206424 No Longer Active Kalpesh Dong MD Active PROMETHAZINE-CODEINE 6.25-10 MG/5ML SYRP 1 tsp every 6 hrs prn c ough PROMETHAZINE-CODEINE 65236950886 No Longer Active Kalpesh Carr Active ALPRAZOLAM 0.5 MG TABS 1 PO bid PRN ALPRAZOLAM 111468 07155 Active Shola MCGILL Active HYDROCODONE-ACETAMINOPHEN 5-325 MG TABS 1 tab by mouth every 6 hours as needed HYDROCODONE-ACETAMINOPHEN 53105184444 No Longer Activ e Shola MCGILL Active CEPHALEXIN 500 MG CAPS 1 PO bid x 7 days CEPHAL EXIN 18672807031 No Longer Active Shola MCGILL Active BACTRIM DS 800-160 MG TAB 1 tab by mouth twice daily 2 TRIMETHOPRIM-SULFAMETHOXAZOLE 16063112401 No Longer Active Kalpesh Dong MD Active HYDROCODONE-ACETAMINOPHEN 5-325 MG TABS 1 PO tid PRN pain 5 HYDROCODONE-ACETAMINOPHEN 65214552492 No Longer Active Abhinav Galvan MD Active IMPLANON 68 MG IMPL IMPLANTED IN LEFT ARM ETONO GESTREL 33825465426 No Longer Active 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 TRUSS PULLER HELPER Active AMOXICILLIN 500 MG TABS 2 tabs PO bid x 10 d AM OXICILLIN 99311246666 No Longer Active Kalpesh Dong MD Active LEVAQUIN 500 MG TABS 1 PO q day x 7 days LEVOFL OXACIN 05270025553 No Longer Active Shola MCGILL Active PROAIR HFA 108 (90 BASE) MCG/ACT AERS 2 puff q 4-6 hrs PRN ALBUTEROL SULFATE 59451133856 Active Shola MCGILL Acti ve FIORICET 50-325-40 MG TABS 2 PO q 8 hrs PRN FOSTER [id number] 87300064184 Active Abdirahman Rios MD Active AMITRIPTYLINE HCL 25 MG TAB 1 tab by mouth daily 60 minutes before bedtime AMITRIPTYLINE HCL 62314665017 No Longer Active Shola MCGILL Active LORTAB 5 5-500 MG TABS 1/2 to 1 tablet by mouth go ry 6 hours as needed for pain HYDROCODONE-ACETAMINOPHEN 37071384548 No Longer Active Shola MCGILL Active CEPHALEXIN 500 MG TABS Take one by mouth four times daily, morning, noon, early evening and bedtime. CEPHALEXIN 75309197925 No Long er Active Hira Moser [employer]USS PULLER HELPER Active TYLENOL/CODEINE #3 300-30 MG TAB 1-2 po q6hr PRN Pain ACETAMINOPHEN-CODEINE 50312780742 No Longer Active Edilberto Marino DO Active PRISTIQ 50 MG QP01O-ATE 1 po qd DESVENLAFAXI NE SUCCINATE 54633885636 No Longer Active Edilberto Marino DO Active PENICILLIN V POTASSIUM 500 MG TAB 1 four times a day 2 PENICILLIN V POTASSIUM 82682137949 No Longer Active Edilberto Marino DO Active DOXYCYCLINE HYCLATE 100 MG CAPS Take one (1) tablet by mouth twice a day DOXYCYCLINE HYCLATE 74567037686 No Longer Active Ronnie Galvan MD Active HYDROCODONE-ACETAMINOPHEN 5-325 MG TABS 1 po q 6hr PRN Pain 2011 HYDROCODONE-ACETAMINOPHEN 78234549585 No Longer Active Patri joan Perez RN Active BACTRIM DS 800-160 MG TAB 1 tab by mouth twice daily 2 TRIMETHOPRIM-SULFAMETHOXAZOLE 00909331320 No Longer Active Kalpesh Dong MD Active LORTAB 5 5-500 MG TABS 1/2 to 1 tablet by mouth go ry 4 hours as needed for pain HYDROCODONE-ACETAMINOPHEN 59293416825 No Longer Active Kalpesh Dong MD Active GENERESS FE 0.8-25 MG-MCG CHEW Take one by mouth daily NORETHIN-ETH ESTRADIOL-FE 70734519750 No Longer Active Kalpesh Dong MD Active HYDROCODONE-ACETAMINOPHEN 7.5-500 MG TABS 1-2 every 4 hours as needed HYDROCODONE-ACETAMINOPHEN 41532112184 No Longer Activ e Kalpesh Dong MD Active FERROUS SULFATE 325 (65 FE) MG TABS 1 tablet by mouth twice yung y FERROUS SULFATE 33179085448 No Longer Active Kalpesh Dong MD Active IBUPROFEN 600 MG TAB 1 po q6-8hr PRN IBUPROFEN 15096745340 No Longer Active Kalpesh Dong MD Active SPIRONOLACTONE 25 MG TAB 1 tablet by mouth daily 01/22 SPIRONOLACTONE 15614847176 No Longer Active Kalpesh Dong MD Acti ve HYDROCODONE-ACETAMINOPHEN 7.5-325 MG TABS 1 po QID PRN Pain 2011 HYDROCODONE-ACETAMINOPHEN 37604527529 No Longer Active Kalpesh Dong MD Active CLINDAMYCIN HCL 300 MG CAPS 1 po q6hr x 7 days CLINDAMYCIN HCL 28703385988 No Longer Active Edilberto Marino DO Active PREDNISONE 20 MG TAB 2 tabs daily for 4 days, 1 t ab daily for 4 days, 1/2 tab daily for 4 days PREDNISONE 21854546200 No Longer Active Edilberto Marino DO Active PERCOCET 5-325 MG TABS 1 tablet by mouth every 6 hours as ne eded for pain OXYCODONE-ACETAMINOPHEN 30853457474 No Longer Active Abdirahman Rios MD Active VITAMINS TABS Take one by mouth daily MV & MIN W/FE-FA TABS 96669462196 No Longer Active Abdirahman Rios MD Active LUIS 3-0.02 MG TABS 1 tablet by mouth daily as directed DROSPIRENONE-ETHINYL ESTRADIOL 71202843096 No Longer Active Abdirahman Rios MD Active LORATADINE 10 MG TABS 1 tablet by mouth daily L ORATADINE 10330058204 No Longer Active Kalpesh Dong MD Active HYDROCODONE-ACETAMINOPHEN 5-325 MG TABS 1 po q 6hr PRN Pain 2010 HYDROCODONE-ACETAMINOPHEN 00888864055 No Longer Active Edilberto Marino DO Active BACTRIM DS 800-160 MG TAB 1 tab by mouth twice daily 2 TRIMETHOPRIM-SULFAMETHOXAZOLE 97952328081 No Longer Active Abdirahman Rios MD Active 28-0.8 MG TABS Take one by mouth daily 09/20 VIT-FE FUMARATE-FA 93790565691 No Longer Active Abdirahman Rios MD Active CIPRO 500 MG TAB 1 tablet by mouth twice daily CIPROFLOXACIN HCL 29743888182 No Longer Active Abdirahman Rios MD Active BENADRYL 25 MG CAP 1 po q8hr PRN Congestion DIPHENHYDRAMINE HCL 29684839910 No Longer Active Abdirahman Rios MD Active ZOLOFT 50 MG TAB 1 po qd SERTRALINE HCL 031653 62938 No Longer Active Abdirahman Rios MD Active AMOXICILLIN 875 MG TABS 1 tab by mouth twice daily 201 08/09/13 AMOXICILLIN 71627343196 No Longer Active Abdirahman Rios MD Activ e AMOXICILLIN 875 MG TABS 1 tab by mouth twice daily 201 07/19/27 AMOXICILLIN 21781376658 No Longer Active Abdirahman Rios MD Activ e BACTRIM DS 800-160 MG TAB 2 tab by mouth twice daily 2 TRIMETHOPRIM-SULFAMETHOXAZOLE 75573122528 No Longer Active Abdirahman Rios MD Active KEFLEX 500 MG CAP 1 po tid x 10 days CEPHALEXIN 99664665451 No Longer Active Abdirahman Rios MD Active AMOXICILLIN 875 MG TABS 1 tab by mouth twice daily 201 07/18/07 AMOXICILLIN 40059727022 No Longer Active Abdirahman Rios MD Activ e BACTRIM DS 800-160 MG TAB 2 tab by mouth twice daily 2 BACTRIM DS 800-160 MG TAB TRIMETHOPRIM-SULFAMETHOXAZOLE Inactive ZOLOFT 50 MG TAB 1 po qd ZOLOFT 50 MG TAB 3129 41 SERTRALINE HCL Inactive BENADRYL 25 MG CAP 1 po q8hr PRN Congestion BENADRYL 25 MG CAP 1157836 DIPHENHYDRAMINE HCL Inactive 28-0.8 MG TABS Take one by mouth daily 09/20 28-0.8 MG TABS VIT-FE FUMARATE-FA Inactive HYDROCODONE-ACETAMINOPHEN 5-325 MG TABS 1 po q 6hr PRN Pain 2010 HYDROCODONE-ACETAMINOPHEN 5-325 MG TABS 908426 HYDROCODONE-ACETAMINOPHEN Inactive LORATADINE 10 MG TABS 1 tablet by mouth daily LORATADINE 10 MG TABS 554000 LORATADINE Inactive LUIS 3-0.02 MG TABS 1 tablet by mouth daily as directed LUIS 3-0.02 MG TABS DROSPIRENONE-ETHINYL ESTRADIOL Inactive VITAMINS TABS Take one by mouth daily VITAMINS TABS MV & MIN W/FE-FA TABS Inactive PERCOCET 5-325 MG TABS 1 tablet by mouth every 6 hours as ne eded for pain PERCOCET 5-325 MG TABS 0690692 OXYCODONE-ACETAMIN OPHEN Inactive PREDNISONE 20 MG TAB 2 tabs daily for 4 days, 1 t ab daily for 4 days, 1/2 tab daily for 4 days PREDNISONE 20 MG TAB 863604 PREDNISON E Inactive CLINDAMYCIN HCL 300 MG CAPS 1 po q6hr x 7 days CLINDAMYCIN HCL 300 MG CAPS 761234 CLINDAMYCIN HCL Inactive HYDROCODONE-ACETAMINOPHEN 7.5-325 MG TABS 1 po QID PRN Pain 2011 HYDROCODONE-ACETAMINOPHEN 7.5-325 MG TABS 804017 HYDROCODONE-ACETAMINOPHEN Inactive SPIRONOLACTONE 25 MG TAB 1 tablet by mouth daily 01/22 SPIRONOLACTONE 25 MG TAB 686339 SPIRONOLACTONE Inactive IBUPROFEN 600 MG TAB 1 po q6-8hr PRN IBUPROFEN 600 MG TAB 639238 IBUPROFEN Inactive FERROUS SULFATE 325 (65 FE) MG TABS 1 tablet by mouth twice yung y FERROUS SULFATE 325 (65 FE) MG TABS 593612 FERROUS SULF ATE Inactive HYDROCODONE-ACETAMINOPHEN 7.5-500 MG TABS 1-2 every 4 hours as needed HYDROCODONE-ACETAMINOPHEN 7.5-500 MG TABS 865371 HYDROCODONE-ACETAMINOPHEN Inactive GENERESS FE 0.8-25 MG-MCG CHEW [...] PRN Pain 2011 HYDROCODONE-ACETAMINOPHEN 5-325 MG TABS 602479 HYDROCODONE-ACETAMINOPHEN Inactive DOXYCYCLINE HYCLATE 100 MG CAPS Take one (1) tablet by mouth twice a day DOXYCYCLINE HYCLATE 100 MG CAPS 791941 DOXYCYCLINE HYCLATE Inactive PENICILLIN V POTASSIUM 500 MG TAB 1 four times a day 2 PENICILLIN V POTASSIUM 500 MG TAB 537051 PENICILLIN V POTASSIUM [place] [facility] PRISTIQ 50 MG [id number] 1 po qd PRISTIQ 50 MG [id number] DESVENLAFAXINE SUCCINATE Inactive TYLENOL/CODEINE #3 300-30 MG TAB 1-2 po q6hr PRN Pain TYLENOL/CODEINE #3 300-30 MG TAB 945071 ACETAMINOPHEN-CODEINE Inact krishna CEPHALEXIN 500 MG TABS Take one by mouth four times daily, morning, noon, early evening and bedtime. CEPHALEXIN 500 MG TABS 324081 CEPHALEXIN Inactive LORTAB 5 5-500 MG TABS 1/2 to 1 tablet by mouth go ry 6 hours as needed for pain LORTAB 5 5-500 MG TABS HYDROCODONE-A CETAMINOPHEN Inactive AMITRIPTYLINE HCL 25 MG TAB 1 tab by mouth daily 60 minutes before bedtime AMITRIPTYLINE HCL 25 MG TAB 890902 AMITRIPTYLINE HCL Inactive AMOXICILLIN 500 MG TABS 2 tabs PO bid x 10 d 7 AMOXICILLIN 500 MG TABS 448590 AMOXICILLIN Inactive IMPLANON 68 MG IMPL IMPLANTED IN LEFT ARM IMPLANON 68 MG IMPL ETONOGESTREL Inactive HYDROCODONE-ACETAMINOPHEN 5-325 MG TABS 1 PO tid PRN pain 5 HYDROCODONE-ACETAMINOPHEN 5-325 MG TABS 751067 HYDROCODONE-ACETAMIN OPHEN Inactive BACTRIM DS 800-160 MG TAB 1 tab by mouth twice daily 2 BACTRIM DS 800-160 MG TAB TRIMETHOPRIM-SULFAMETHOXAZOLE Inac tive CEPHALEXIN 500 MG CAPS 1 PO bid x 7 days CEPHALEXIN 500 MG CAPS 961595 CEPHALEXIN Inactive HYDROCODONE-ACETAMINOPHEN 5-325 MG TABS 1 tab by mouth every 6 hours as needed HYDROCODONE-ACETAMINOPHEN 5-325 MG TABS 809124 HYDROCODONE-ACETAMINOPHEN Inactive PROMETHAZINE-CODEINE 6.25-10 MG/5ML SYRP 1 tsp every 6 hrs prn c ough PROMETHAZINE-CODEINE 6.25-10 MG/5ML SYRP 976182 PROMETH AZINE-CODEINE Inactive IBUPROFEN 800 MG TAB 1 pill three times daily as needed for pain IBUPROFEN 800 MG TAB 688210 IBUPROFEN Inactive KEFLEX 500 MG CAP 1 tab po tid KEFLEX 500 MG CAP 640797 CEPHALEXIN Inactive HYDROCODONE-ACETAMINOPHEN 7.5-325 MG TABS 1 four times a day as needed for pain HYDROCODONE-ACETAMINOPHEN 7.5-325 MG TABS 383279 HYDROCODONE-ACETAMINOPHEN Inactive BACTRIM DS 800-160 MG TABS by mouth twice a day 11/05 BACTRIM DS 800-160 MG TABS SULFAMETHOXAZOLE-TRIMETHOPRIM Inactive AMOXICILLIN 875 MG TABS 1 tab by mouth twice daily 201 07/18/07 AMOXICILLIN 875 MG TABS 042512 AMOXICILLIN Inactive KEFLEX 500 MG CAP 1 po tid x 10 days KEFLEX 500 MG CAP 152702 CEPHALEXIN Inactive AMOXICILLIN 875 MG TABS 1 tab by mouth twice daily 201 07/19/27 AMOXICILLIN 875 MG TABS 293502 AMOXICILLIN Inactive AMOXICILLIN 875 MG TABS 1 tab by mouth twice daily 08/09/13 AMOXICILLIN 875 MG TABS 302548 AMOXICILLIN Inactive CIPRO 500 MG TAB 1 tablet by mouth twice daily CIPRO 500 MG TAB 181889 CIPROFLOXACIN HCL Inactive BACTRIM DS 800-160 MG TAB 1 tab by mouth twice daily 2 BACTRIM DS 800-160 MG TAB TRIMETHOPRIM-SULFAMETHOXAZOLE Inac tive LEVAQUIN 500 MG TABS 1 PO q day x 7 days LEVAQUIN 500 MG TABS 017217 LEVOFLOXACIN Inactive Advance Directives Directive Description Start Date PERMISSION TO SHARE Immunizations Vaccine Administration Date Value Standard Alf cription Seasonal influenza vaccine, injectable, containing preservative, for > 3 years old (Afluria, FluLaval, Fluzone, Fluvirin, Fluarix, Agriflu(>= 18 yo)) Fluzone (>3 yrs.) [[id number]] Influenza, seasonal, inject able Seasonal influenza vaccine, injectable, preservative free, for > 3 years old (Afluria, FluLaval, Fluzone, Fluvirin, Fluarix, Agriflu(>= 18 yo)) Fluzone preservative free (>3 yrs.) [[id number]] Influenza, seasonal, injectable, preservative free Seasonal influenza vaccine, injectable, containing preservative, for > 3 years old (Afluria, FluLaval, Fluzone, Fluvirin, Fluarix, Agriflu(>= 18 yo)) Fluzone (>3 yrs.) [[id number]] Influenza, seasonal, inject able Seasonal influenza vaccine, injectable, containing preservative, for > 3 years old (Afluria, FluLaval, Fluzone, Fluvirin, Fluarix, Agriflu(>= 18 yo)) Fluzone (>3 yrs.) [[id number]] Influenza, seasonal, inject able dT (Diphtheria and [...] mg/dL Chart Maintenance: Outside labs entered on [employer] - Hematology leukocyte count, blood 8.3 10*3/mm3 erythrocyte (RBC) count 5.2 10*6/mm3 hemoglobin, blood 14.2 g/dL hematocrit, blood 42.6 % mean corpuscular volume, RBC 82.4 fL mean corpuscular hemoglobin, RBC 27.5 pg red blood cell distribution width 12.9 % platelet count 316 10*3/mm3 Lab Report: CBC W/DIFF, Comp. Metabolic Panel, Thyroid Stimulating Hormo ... - Chemistry sodium, serum 140 mmol/L 602-395 9318/02/24 potassium, serum 4.3 mmol/L 3.5-5.2 chloride, serum [...] 4.3-6.0 Lab Report: T3, TOTAL, INSULIN - Planing Machine Operator ry triiodothyronine, serum 78 ng/dL 76-181 Lab [...] mg/dL Encounters Code Encounter Date Provider Facility CPT-31920 Level 3 Est. Patient 14:11:58 CDT Kalpesh goins MD [facility] CPT-85682 Level 3 Est. Patient 16:50:00 CDT Michelle MERCADO [facility] CPT-00061 Level 3 Est. Patient 17:11:32 [employer] Brandie bates MD PhD [facility] CPT-45908 Level 3 Est. Patient 16:31:47 [employer] Shola MCGILL [facility] CPT-42759 Level 3 Est. Patient 17:51:10 [employer] Abhinav Galvan MD [facility] CPT-98348 Level 4 Est. Patient 12:54:56 [employer] Kalpesh goins MD [facility] CPT-75742 Level 4 Est. Patient 12:53:56 [employer] Kalpesh goins MD [facility] CPT-19254 Level 3 Est. Patient 17:56:58 CDT Shola MCGILL [facility] CPT-99159 Level 3 Est. Patient 14:26:20 CDT Janak butcher [facility] CPT-56351 Level 3 Est. Patient 09:38:41 CDT Shola Wright [facility] CPT-69201 Level 3 Est. Patient 14:45:26 CDT Edilberto tiwari [facility] CPT-87740 Level 3 Est. Patient 10:51:33 CDT Hira muniz [facility] CPT-55165 Level 3 Est. Patient 11:57:55 [employer] Shola Thao Adriana [facility] CPT-97183 Level 3 Est. Patient 09:53:33 [employer] Edilberto tiwari [facility] CPT-55879 Level 3 Est. Patient 14:42:54 [employer] Abhinav Galvan MD [facility] CPT-66639 Level 3 Est. Patient 15:10:02 CDT Janak butcher [facility] CPT-40889 Level 3 Est. Patient 15:20:20 CDT Theo dennis MD [facility] CPT-57763 Level 2 Est. Patient 14:08:57 CDT Kalpesh goins MD [facility] CPT-74565 Level 3 Est. Patient 13:56:19 CDT Abdirahman Rios MD [facility] CPT-55019 Level 3 Est. Patient 13:59:37 CDT Abdirahman Rios MD [facility] CPT-07721 Level 2 Est. Patient 14:44:59 CDT Kalpesh goins MD [facility]-39832 Level 3 Est. Patient 06:06:23 CDT Edilberto tiwari [facility] CPT-69108 Level 3 Est. Patient 15:23:54 CDT Abdirahman Rios MD [facility] CPT-99980 Level 3 Est. Patient 15:43:49 CDT Abdirahman Rios MD [facility] CPT-09840 Level 3 Est. Patient 12:46:47 [employer] Abdirahman Rios MD [facility] CPT-36055 Level 3 Est. Patient 08:13:35 [employer] Abdirahman Rios MD [facility] CPT-27718 Level 2 Est. Patient 09:36:42 [employer] Abdirahman Rios MD [facility] CPT-08971 Level 3 Est. Patient 10:56:43 CDT Abdirahman Rios MD [facility] CPT-97103 Level 3 Est. Patient 18:24:52 CDT Abdirahman Rios MD [facility] CPT-17657 Level 3 Est. Patient 13:27:22 CDT Abdirahman Rios MD [facility] Procedures Code Procedure Name Date Entry Date Standard Desc ription CPT-OV Office Visit 15:34:48 CDT CPT-54117 Postop F/U Visit 14:50:12 CDT CPT-06895 Postop F/U Visit 14:41:10 CDT CPT-99006 Venipuncture Draw Fee 11:38:04 [employer] CPT-18080 Postop F/U Visit 19:02:59 [employer] CPT-64869 Postop F/U Visit 12:04:54 [employer] CPT-44096 Administration single or combination vac cine inc oral 15:56:43 CDT CPT-42204 Influenza split virus > age 3 15:56:43 CDT CPT-92247 Hand comp min 3V 14:25:19 CDT CPT-15952 Postop F/U Visit 21:40:51 CDT CPT-75250 Postop F/U Visit 10:58:43 CDT CPT-97322 Administration single or combination vac cine inc oral 12:33:54 [employer] CPT-47707 Influenza Preservative Free split virus >age 3 12:33:54 [employer] CPT-95184 Administration single or combination vac cine inc oral 09:30:51 CDT CPT-47982 Influenza split virus > age 3 09:30:51 CDT CPT-24246 Postop F/U Visit 15:14:53 CDT CPT-54135 Postop F/U Visit 13:50:14 CDT CPT-75366 Postop F/U Visit 13:34:52 CDT CPT-OV Office Visit 16:55:03 CDT CPT-88773 [place] of cervix w bx ECC 13:32:50 CDT 10/19 CPT-J1885 Toradol 60 mg (Ketorolac) 15:31:59 CDT 2011 CPT-J1885 Toradol 60 mg (Ketorolac) 15:23:54 CDT 2011 CPT-73258 Visit 11:34:37 [employer] CPT-34820 Visit 10:52:39 [employer] CPT-74501 Visit 10:12:02 [employer] CPT-84701 Visit 11:22:43 [employer] CPT-32141 Visit 11:24:12 [employer] CPT-40467 Visit 10:47:05 [employer] CPT-OV Office Visit 10:26:16 [employer] CPT-OV Office Visit 15:34:31 [employer] CPT-15969 Visit 10:42:08 [employer] CPT-46439 Visit 10:52:45 [employer] CPT-000 Give Appropriate Flu Vaccine 16:56:41 CDT 2 CPT-30849 Administration single or combination vac cine inc oral 10:33:21 CDT CPT-38612 Influenza split virus > age 3 10:33:21 CDT CPT-96900 Visit 13:23:09 CDT CPT-43222 Visit 18:24:52 CDT CPT-00480 Sono OB comp > 14 weeks 12:07:49 CDT 04/07
--- OUTSIDE RECORDS SUMMARY | 2020-01-18 17:06 | XMS REPORT | Clinical Summary ---
Author Author Admin, Jeri Rashid Organization [facility] Address Unknown Phone Allergies, Adverse Reactions, Alerts [...] Generic Name NDC Status Provider Patient Instruction CLINDAMYCIN HCL 300 MG CAPS 1 po QID x 7 days CLINDAMYCIN HCL 17918116251 Active Abdirahman Rios MD Active HYDROCODONE-ACETAMINOPHEN 7.5-325 MG TABS 1 by mouth e very 6 hours as needed for pain HYDROCODONE-ACETAMINOPHEN 59577268386 Active Shola MCGILL Active BACTRIM DS 800-160 MG TABS 1 po BID x 7 days 5 SULFAMETHOXAZOLE-TRIMETHOPRIM 49894024921 No Longer Active Abdirahman Rios MD Active ENDOCET 10-325 MG TABS 1 q 6 hr prn OXYCODONE-ACETAMINOPHEN 63343771133 No Longer Active Abdirahman Rios MD Active IBUPROFEN 800 MG TABS 1 tid prn IBUPROFEN 755055 97568 No Longer Active Abdirahman Rios MD Active BACTRIM DS 800-160 MG TABS by mouth twice a day 11/05 SULFAMETHOXAZOLE-TRIMETHOPRIM 37453621359 No Longer Active Good Julian MD Active HYDROCODONE-ACETAMINOPHEN 7.5-325 MG TABS 1 four times a day as needed for pain HYDROCODONE-ACETAMINOPHEN 53236615447 No Longer Activ e Good Julian MD Active KEFLEX 500 MG CAP 1 tab po tid CEPHALEXIN 713776 03147 No Longer Active Karenina Shanti PHOTOENGRAVER Active IBUPROFEN 800 MG TAB 1 pill three times daily as needed for pain IBUPROFEN 62055907356 No Longer Active Kalpesh Dong MD Active PROMETHAZINE-CODEINE 6.25-10 MG/5ML SYRP 1 tsp every 6 hrs prn c ough PROMETHAZINE-CODEINE 47804717684 No Longer Active Kalpesh Carr Active ALPRAZOLAM 0.5 MG TABS 1 PO bid PRN ALPRAZOLAM 001557 60819 Active Shola MCGILL Active HYDROCODONE-ACETAMINOPHEN 5-325 MG TABS 1 tab by mouth every 6 hours as needed HYDROCODONE-ACETAMINOPHEN 53041727215 No Longer Activ e Shola MCGILL Active CEPHALEXIN 500 MG CAPS 1 PO bid x 7 days CEPHAL EXIN 23204990685 No Longer Active Shola MCGILL Active BACTRIM DS 800-160 MG TAB 1 tab by mouth twice daily 2 TRIMETHOPRIM-SULFAMETHOXAZOLE 56281792830 No Longer Active Kalpesh Dong MD Active HYDROCODONE-ACETAMINOPHEN 5-325 MG TABS 1 PO tid PRN pain 5 HYDROCODONE-ACETAMINOPHEN 45058851223 No Longer Active Abhinav Galvan MD Active IMPLANON 68 MG IMPL IMPLANTED IN LEFT ARM ETONO GESTREL 62505055954 No Longer Active Hira Moser APRN Active AMOXICILLIN 500 MG TABS 2 tabs PO bid x 10 d AM OXICILLIN 89215095405 No Longer Active Kalpesh Dong MD Active LEVAQUIN 500 MG TABS 1 PO q day x 7 days LEVOFL OXACIN 27202854454 No Longer Active Shola MCGILL Active PROAIR HFA 108 (90 BASE) MCG/ACT AERS 2 puff q 4-6 hrs PRN ALBUTEROL SULFATE 59300394614 Active Shola MCGILL Acti ve FIORICET 50-325-40 MG TABS 2 PO q 8 hrs PRN FOSTER [id number] 35003584863 Active Abdirahman Rios MD Active AMITRIPTYLINE HCL 25 MG TAB 1 tab by mouth daily 60 minutes before bedtime AMITRIPTYLINE HCL 60104483235 No Longer Active Shola MCGILL Active LORTAB 5 5-500 MG TABS 1/2 to 1 tablet by mouth go ry 6 hours as needed for pain HYDROCODONE-ACETAMINOPHEN 99654704056 No Longer Active Shola MCGILL Active CEPHALEXIN 500 MG TABS Take one by mouth four times daily, morning, noon, early evening and bedtime. CEPHALEXIN 45050295905 No Long er Active Hira Moser PHOTOENGRAVER Active TYLENOL/CODEINE #3 300-30 MG TAB 1-2 po q6hr PRN Pain ACETAMINOPHEN-CODEINE 40060833362 No Longer Active Edilberto Marino DO Active PRISTIQ 50 MG [id number] 1 po qd DESVENLAFAXI NE SUCCINATE 55273623161 No Longer Active Edilberto Marino DO Active PENICILLIN V POTASSIUM 500 MG TAB 1 four times a day 2 PENICILLIN V POTASSIUM 82766743783 No Longer Active Edilberto Marino DO Active DOXYCYCLINE HYCLATE 100 MG CAPS Take one (1) tablet by mouth twice a day DOXYCYCLINE HYCLATE 36957577349 No Longer Active Ronnie Galvan MD Active HYDROCODONE-ACETAMINOPHEN 5-325 MG TABS 1 po q 6hr PRN Pain 2011 HYDROCODONE-ACETAMINOPHEN 59061170186 No Longer Active Jerson Perez RN Active BACTRIM DS 800-160 MG TAB 1 tab by mouth twice daily 2 TRIMETHOPRIM-SULFAMETHOXAZOLE 31501280013 No Longer Active Kalpesh Dong MD Active LORTAB 5 5-500 MG TABS 1/2 to 1 tablet by mouth go ry 4 hours as needed for pain HYDROCODONE-ACETAMINOPHEN 47757450628 No Longer Active Kalpesh Dong MD Active GENERESS FE 0.8-25 MG-MCG CHEW Take one by mouth daily NORETHIN-ETH ESTRADIOL-FE 81634938958 No Longer Active Kalpesh Dong MD Active HYDROCODONE-ACETAMINOPHEN 7.5-500 MG TABS 1-2 every 4 hours as needed HYDROCODONE-ACETAMINOPHEN 70145527295 No Longer Activ e Kalpesh Dong MD Active FERROUS SULFATE 325 (65 FE) MG TABS 1 tablet by mouth twice yung y FERROUS SULFATE 06037934348 No Longer Active Kalpesh Dong MD Active IBUPROFEN 600 MG TAB 1 po q6-8hr PRN IBUPROFEN 68048225949 No Longer Active Kalpesh Dong MD Active SPIRONOLACTONE 25 MG TAB 1 tablet by mouth daily 01/22 SPIRONOLACTONE 04256098388 No Longer Active Kalpesh Dong MD Acti ve HYDROCODONE-ACETAMINOPHEN 7.5-325 MG TABS 1 po QID PRN Pain 2011 HYDROCODONE-ACETAMINOPHEN 32936970763 No Longer Active Kalpesh Dong MD Active CLINDAMYCIN HCL 300 MG CAPS 1 po q6hr x 7 days CLINDAMYCIN HCL 12765752725 No Longer Active Edilberto Marino DO Active PREDNISONE 20 MG TAB 2 tabs daily for 4 days, 1 t ab daily for 4 days, 1/2 tab daily for 4 days PREDNISONE 40579128295 No Longer Active Edilberto Marino DO Active PERCOCET 5-325 MG TABS 1 tablet by mouth every 6 hours as ne eded for pain OXYCODONE-ACETAMINOPHEN 44489692680 No Longer Active Abdirahman Rios MD Active VITAMINS TABS Take one by mouth daily MV & MIN W/FE-FA TABS 38607664390 No Longer Active Abdirahman Rios MD Active LUIS 3-0.02 MG TABS 1 tablet by mouth daily as directed DROSPIRENONE-ETHINYL ESTRADIOL 24412162005 No Longer Active Abdirahman Rios MD Active LORATADINE 10 MG TABS 1 tablet by mouth daily L ORATADINE 35809431107 No Longer Active Kalpesh oDng MD Active HYDROCODONE-ACETAMINOPHEN 5-325 MG TABS 1 po q 6hr PRN Pain 2010 HYDROCODONE-ACETAMINOPHEN 21674285884 No Longer Active Edilberto Marion DO Active BACTRIM DS 800-160 MG TAB 1 tab by mouth twice daily 2 TRIMETHOPRIM-SULFAMETHOXAZOLE 51164826488 No Longer Active Abdirahman Rios MD Active 28-0.8 MG TABS Take one by mouth daily 09/20 VIT-FE FUMARATE-FA 08992478601 No Longer Active Abdirahman Rios MD Active CIPRO 500 MG TAB 1 tablet by mouth twice daily CIPROFLOXACIN HCL 53100963250 No Longer Active Abdirahman Rios MD Active BENADRYL 25 MG CAP 1 po q8hr PRN Congestion DIPHENHYDRAMINE HCL 38954403173 No Longer Active Abdirahman Rios MD Active ZOLOFT 50 MG TAB 1 po qd SERTRALINE HCL 907938 94726 No Longer Active Abdirahman Rios MD Active AMOXICILLIN 875 MG TABS 1 tab by mouth twice daily 201 08/09/13 AMOXICILLIN 91694650948 No Longer Active Abdirahman Rios MD Activ e AMOXICILLIN 875 MG TABS 1 tab by mouth twice daily 201 07/19/27 AMOXICILLIN 64073960735 No Longer Active Abdirahman Rios MD Activ e BACTRIM DS 800-160 MG TAB 2 tab by mouth twice daily 2 TRIMETHOPRIM-SULFAMETHOXAZOLE 00495004441 No Longer Active Abdirahman Rios MD Active KEFLEX 500 MG CAP 1 po tid x 10 days CEPHALEXIN 25398070113 No Longer Active Abdirahman Rios MD Active AMOXICILLIN 875 MG TABS 1 tab by mouth twice daily 201 07/18/07 AMOXICILLIN 43414871022 No Longer Active Abdirahman Rios MD Activ e BACTRIM DS 800-160 MG TAB 2 tab by mouth twice daily 2 BACTRIM DS 800-160 MG TAB TRIMETHOPRIM-SULFAMETHOXAZOLE Inactive ZOLOFT 50 MG TAB 1 po qd ZOLOFT 50 MG TAB 3129 41 SERTRALINE HCL Inactive BENADRYL 25 MG CAP 1 po q8hr PRN Congestion BENADRYL 25 MG CAP 5721062 DIPHENHYDRAMINE HCL Inactive 28-0.8 MG TABS Take one by mouth daily 09/20 28-0.8 MG TABS VIT-FE FUMARATE-FA Inactive HYDROCODONE-ACETAMINOPHEN 5-325 MG TABS 1 po q 6hr PRN Pain 2010 HYDROCODONE-ACETAMINOPHEN 5-325 MG TABS 745481 HYDROCODONE-ACETAMINOPHEN Inactive LORATADINE 10 MG TABS 1 tablet by mouth daily LORATADINE 10 MG TABS 646277 LORATADINE Inactive LUIS 3-0.02 MG TABS 1 tablet by mouth daily as directed LUIS 3-0.02 MG TABS DROSPIRENONE-ETHINYL ESTRADIOL Inactive VITAMINS TABS Take one by mouth daily VITAMINS TABS MV & MIN W/FE-FA TABS Inactive PERCOCET 5-325 MG TABS 1 tablet by mouth every 6 hours as ne eded for pain PERCOCET 5-325 MG TABS 9095555 OXYCODONE-ACETAMIN OPHEN Inactive PREDNISONE 20 MG TAB 2 tabs daily for 4 days, 1 t ab daily for 4 days, 1/2 tab daily for 4 days PREDNISONE 20 MG TAB 564901 PREDNISON E Inactive CLINDAMYCIN HCL 300 MG CAPS 1 po q6hr x 7 days CLINDAMYCIN HCL 300 MG CAPS 203531 CLINDAMYCIN HCL Inactive HYDROCODONE-ACETAMINOPHEN 7.5-325 MG TABS 1 po QID PRN Pain 2011 HYDROCODONE-ACETAMINOPHEN 7.5-325 MG TABS 620962 HYDROCODONE-ACETAMINOPHEN Inactive SPIRONOLACTONE 25 MG TAB 1 tablet by mouth daily 01/22 SPIRONOLACTONE 25 MG TAB 476275 SPIRONOLACTONE Inactive IBUPROFEN 600 MG TAB 1 po q6-8hr PRN IBUPROFEN 600 MG TAB 457149 IBUPROFEN Inactive FERROUS SULFATE 325 (65 FE) MG TABS 1 tablet by mouth twice yung y FERROUS SULFATE 325 (65 FE) MG TABS 365263 FERROUS SULF ATE Inactive HYDROCODONE-ACETAMINOPHEN 7.5-500 MG [...] PRN Pain 2011 HYDROCODONE-ACETAMINOPHEN 5-325 MG TABS 439684 HYDROCODONE-ACETAMINOPHEN Inactive DOXYCYCLINE HYCLATE 100 MG CAPS Take one (1) tablet by mouth twice a day DOXYCYCLINE HYCLATE 100 MG CAPS 811654 DOXYCYCLINE HYCLATE Inactive PENICILLIN V POTASSIUM 500 MG TAB 1 four times a day 2 PENICILLIN V POTASSIUM 500 MG TAB 797734 PENICILLIN V POTASSIUM Siri ctive PRISTIQ 50 MG [id number] 1 po qd PRISTIQ 50 MG [id number] DESVENLAFAXINE SUCCINATE Inactive TYLENOL/CODEINE #3 300-30 MG TAB 1-2 po q6hr PRN Pain TYLENOL/CODEINE #3 300-30 MG TAB 632784 ACETAMINOPHEN-CODEINE Inact krishna CEPHALEXIN 500 MG TABS Take one by mouth four times daily, morning, noon, early evening and bedtime. CEPHALEXIN 500 MG TABS 735932 CEPHALEXIN Inactive LORTAB 5 5-500 MG TABS 1/2 to 1 tablet by mouth go ry 6 hours as needed for pain LORTAB 5 5-500 MG TABS HYDROCODONE-A CETAMINOPHEN Inactive AMITRIPTYLINE HCL 25 MG TAB 1 tab by mouth daily 60 minutes before bedtime AMITRIPTYLINE HCL 25 MG TAB 231686 AMITRIPTYLINE HCL Inactive AMOXICILLIN 500 MG TABS 2 tabs PO bid x 10 d 7 AMOXICILLIN 500 MG TABS 607272 AMOXICILLIN Inactive IMPLANON 68 MG IMPL IMPLANTED IN LEFT ARM IMPLANON 68 MG IMPL ETONOGESTREL Inactive HYDROCODONE-ACETAMINOPHEN 5-325 MG TABS 1 PO tid PRN pain 5 HYDROCODONE-ACETAMINOPHEN 5-325 MG TABS 081102 HYDROCODONE-ACETAMIN OPHEN Inactive BACTRIM DS 800-160 MG TAB 1 tab by mouth twice daily 2 BACTRIM DS 800-160 MG TAB TRIMETHOPRIM-SULFAMETHOXAZOLE Inac tive CEPHALEXIN 500 MG CAPS 1 PO bid x 7 days CEPHALEXIN 500 MG CAPS 452874 CEPHALEXIN Inactive HYDROCODONE-ACETAMINOPHEN 5-325 MG TABS 1 tab by mouth every 6 hours as needed HYDROCODONE-ACETAMINOPHEN 5-325 MG TABS 533433 HYDROCODONE-ACETAMINOPHEN Inactive PROMETHAZINE-CODEINE 6.25-10 MG/5ML SYRP 1 tsp every 6 hrs prn c ough PROMETHAZINE-CODEINE 6.25-10 MG/5ML SYRP 151953 PROMETH AZINE-CODEINE Inactive IBUPROFEN 800 MG TAB 1 pill three times daily as needed for pain IBUPROFEN 800 MG TAB 739958 IBUPROFEN Inactive KEFLEX 500 MG CAP 1 tab po tid KEFLEX 500 MG CAP 860261 CEPHALEXIN Inactive HYDROCODONE-ACETAMINOPHEN 7.5-325 MG TABS 1 four times a day as needed for pain HYDROCODONE-ACETAMINOPHEN 7.5-325 MG TABS 934724 HYDROCODONE-ACETAMINOPHEN Inactive BACTRIM DS 800-160 MG TABS by mouth twice a day 11/05 BACTRIM DS 800-160 MG TABS SULFAMETHOXAZOLE-TRIMETHOPRIM Inactive IBUPROFEN 800 MG TABS 1 tid prn IBUPROFEN 800 MG TABS 257134 IBUPROFEN Inactive ENDOCET 10-325 MG TABS 1 q 6 hr prn ENDOC ET 10-325 MG TABS 3789487 OXYCODONE-ACETAMINOPHEN Inactive AMOXICILLIN 875 MG TABS 1 tab by mouth twice daily 201 07/18/07 AMOXICILLIN 875 MG TABS 653664 AMOXICILLIN Inactive KEFLEX 500 MG CAP 1 po tid x 10 days KEFLEX 500 MG CAP 247922 CEPHALEXIN Inactive AMOXICILLIN 875 MG TABS 1 tab by mouth twice daily 201 07/19/27 AMOXICILLIN 875 MG TABS 367984 AMOXICILLIN Inactive AMOXICILLIN 875 MG TABS 1 tab by mouth twice daily 201 08/09/13 AMOXICILLIN 875 MG TABS 086594 AMOXICILLIN Inactive CIPRO 500 MG TAB 1 tablet by mouth twice daily CIPRO 500 MG TAB 642340 CIPROFLOXACIN HCL Inactive BACTRIM DS 800-160 MG TAB 1 tab by mouth twice daily 2 BACTRIM DS 800-160 MG TAB TRIMETHOPRIM-SULFAMETHOXAZOLE Inac tive LEVAQUIN 500 MG TABS 1 PO q day x 7 days LEVAQUIN 500 MG TABS 162932 LEVOFLOXACIN Inactive Advance Directives Directive Description Start Date PERMISSION TO SHARE Immunizations Vaccine Administration Date Value Standard Alf cription Seasonal influenza vaccine, injectable, containing preservative, for > 3 years old (Afluria, FluLaval, Fluzone, Fluvirin, Fluarix, Agriflu(>= 18 yo)) Fluzone (>3 yrs.) [[id number]] Influenza, seasonal, inject able Seasonal influenza vaccine, injectable, preservative free, for > 3 years old (Afluria, FluLaval, Fluzone, Fluvirin, Fluarix, Agriflu(>= 18 yo)) Fluzone preservative free (>3 yrs.) [[id number]] Influenza, seasonal, injectable, preservative free Seasonal influenza vaccine, injectable, containing preservative, for > 3 years old (Afluria, FluLaval, Fluzone, Fluvirin, Fluarix, Agriflu(>= 18 yo)) Fluzone (>3 yrs.) [[id number]] Influenza, seasonal, inject able Seasonal influenza vaccine, injectable, containing preservative, for > 3 years old (Afluria, FluLaval, Fluzone, Fluvirin, Fluarix, Agriflu(>= 18 yo)) Fluzone (>3 yrs.) [[id number]] Influenza, seasonal, inject able dT (Diphtheria and [...] mg/dL Chart Maintenance: Outside labs entered on [employer] - Hematology leukocyte count, blood 8.3 10*3/mm3 erythrocyte (RBC) count 5.2 10*6/mm3 hemoglobin, blood 14.2 g/dL hematocrit, blood 42.6 % mean corpuscular volume, RBC 82.4 fL mean corpuscular hemoglobin, RBC 27.5 pg red blood cell distribution width 12.9 % platelet count 316 10*3/mm3 Lab Report: CBC W/DIFF, Comp. Metabolic Panel, Thyroid Stimulating Hormo ... - Chemistry sodium, serum 140 mmol/L 659-309 4517/02/24 potassium, serum 4.3 mmol/L 3.5-5.2 chloride, serum [...] 4.3-6.0 Lab Report: T3, TOTAL, INSULIN - Development Geologist ry triiodothyronine (T3), serum 78 ng/dL 76-181 [...] mg/dL Encounters Code Encounter Date Provider Facility CPT-03358 Level 3 Est. Patient 14:19:37 CDT Abdirahman Rios MD [facility] CPT-45265 Level 3 Est. Patient 14:11:58 CDT Kalpesh goins MD [facility] CPT-84622 Level 3 Est. Patient 16:50:00 CDT Michelle MERCADO [facility] CPT-29812 Level 3 Est. Patient 17:11:32 TESTER VIBRATOR EQUIPMENT Brandie bates MD PhD [facility] CPT-96865 Level 3 Est. Patient 16:31:47 TESTER VIBRATOR EQUIPMENT Shola MCGILL [facility] CPT-30032 Level 3 Est. Patient 17:51:10 TESTER VIBRATOR EQUIPMENT Abhinav Galvan MD [facility] CPT-35743 Level 4 Est. Patient 12:54:56 TESTER VIBRATOR EQUIPMENT Kalpesh goins MD [facility] CPT-35825 Level 4 Est. Patient 12:53:56 TESTER VIBRATOR EQUIPMENT Kalpesh goins MD [facility] CPT-56178 Level 3 Est. Patient 17:56:58 CDT Shola Keesha Adriana [facility] CPT-84510 Level 3 Est. Patient 14:26:20 CDT Janak butcher [facility] CPT-68285 Level 3 Est. Patient 09:38:41 CDT Shola Thao Adriana [facility] CPT-53782 Level 3 Est. Patient 14:45:26 CDT Edilberto tiwari [facility] CPT-93640 Level 3 Est. Patient 10:51:33 [facility] Level 3 Est. Patient 11:57:55 TESTER VIBRATOR EQUIPMENT Shola Wright [facility] CPT-96562 Level 3 Est. Patient 09:53:33 TESTER VIBRATOR EQUIPMENT Edilberto tiwari [facility] CPT-13795 Level 3 Est. Patient 14:42:54 TESTER VIBRATOR EQUIPMENT Abhinav Galvan MD [facility] CPT-00179 Level 3 Est. Patient 15:10:02 CDT Janak butcher [facility] CPT-79032 Level 3 Est. Patient 15:20:20 CDT Theo dennis MD [facility] CPT-93537 Level 2 Est. Patient 14:08:57 CDT Kalpesh goins MD [facility] CPT-59097 Level 3 Est. Patient 13:56:19 CDT Abdirahman Rios MD [facility] CPT-75698 Level 3 Est. Patient 13:59:37 CDT Abdirahman Rios MD [facility] CPT-00465 Level 2 Est. Patient 14:44:59 CDT Kalpesh goins MD [facility] CPT-85346 Level 3 Est. Patient 06:06:23 CDT Edilberto tiwari DO [facility] CPT-04095 Level 3 Est. Patient 15:23:54 CDT Abdirahman Rios MD [facility] CPT-49569 Level 3 Est. Patient 15:43:49 CDT Abdirahman Rios MD [facility] CPT-87075 Level 3 Est. Patient 12:46:47 TESTER VIBRATOR EQUIPMENT Abdirahman Rios MD [facility] CPT-93716 Level 3 Est. Patient 08:13:35 TESTER VIBRATOR EQUIPMENT Abdirahman Rios MD [facility] CPT-68710 Level 2 Est. Patient 09:36:42 TESTER VIBRATOR EQUIPMENT Abdirahman Rios MD [facility] CPT-13668 Level 3 Est. Patient 10:56:43 CDT Abdirahman Rios MD [facility] CPT-14885 Level 3 Est. Patient 18:24:52 CDT Abdirahman Rios MD [facility] CPT-55923 Level 3 Est. Patient 13:27:22 CDT Abdirahman Rios MD [facility] Procedures Code Procedure Name Date Entry Date Standard Desc ription CPT-OV Office Visit 15:34:48 CDT CPT-31704 Postop F/U Visit 14:50:12 CDT CPT-36008 Postop F/U Visit 14:41:10 CDT CPT-11737 Venipuncture Draw Fee 11:38:04 TESTER VIBRATOR EQUIPMENT CPT-16572 Postop F/U Visit 19:02:59 TESTER VIBRATOR EQUIPMENT CPT-61364 Postop F/U Visit 12:04:54 TESTER VIBRATOR EQUIPMENT CPT-14488 Administration single or combination vac cine inc oral 15:56:43 CDT CPT-36285 Influenza split virus > age 3 15:56:43 CDT CPT-50222 Hand comp min 3V 14:25:19 CDT CPT-43588 Postop F/U Visit 21:40:51 CDT CPT-32236 Postop F/U Visit 10:58:43 CDT CPT-72784 Administration single or combination vac cine inc oral 12:33:54 TESTER VIBRATOR EQUIPMENT CPT-25505 Influenza Preservative Free split virus >age 3 12:33:54 TESTER VIBRATOR EQUIPMENT CPT-14044 Administration single or combination vac cine inc oral 09:30:51 CDT CPT-87112 Influenza split virus > age 3 09:30:51 CDT CPT-45260 Postop F/U Visit 15:14:53 CDT CPT-94799 Postop F/U Visit 13:50:14 CDT CPT-52850 Postop F/U Visit 13:34:52 CDT CPT-OV Office Visit 16:55:03 CDT CPT-88619 Kyburz of cervix w bx ECC 13:32:50 CDT 10/19 CPT-J1885 Toradol 60 mg (Ketorolac) 15:31:59 CDT 2011 CPT-J1885 Toradol 60 mg (Ketorolac) 15:23:54 CDT 2011 CPT-70919 Visit 11:34:37 TESTER VIBRATOR EQUIPMENT CPT-26556 Visit 10:52:39 TESTER VIBRATOR EQUIPMENT CPT-68225 Visit 10:12:02 TESTER VIBRATOR EQUIPMENT CPT-37809 Visit 11:22:43 TESTER VIBRATOR EQUIPMENT CPT-52001 Visit 11:24:12 TESTER VIBRATOR EQUIPMENT CPT-91884 Visit 10:47:05 TESTER VIBRATOR EQUIPMENT CPT-OV Office Visit 10:26:16 TESTER VIBRATOR EQUIPMENT CPT-OV Office Visit 15:34:31 TESTER VIBRATOR EQUIPMENT CPT-47675 Visit 10:42:08 TESTER VIBRATOR EQUIPMENT CPT-66269 Visit 10:52:45 TESTER VIBRATOR EQUIPMENT CPT-000 Give Appropriate Flu Vaccine 16:56:41 CDT 2 CPT-88273 Administration single or combination vac cine inc oral 10:33:21 CDT CPT-37368 Influenza split virus > age 3 10:33:21 CDT CPT-07865 Visit 13:23:09 CDT CPT-66066 Visit 18:24:52 CDT CPT-91330 Sono OB comp > 14 weeks 12:07:49 CDT 04/07
--- OUTSIDE RECORDS SUMMARY | 2020-01-18 17:07 | XMS REPORT | Clinical Summary ---
Author Author Admin, Jeri Rashid Organization [facility] Address Unknown Phone Allergies, Adverse Reactions, Alerts [...] not specified as infective URETHRITIS 597.80 Resolved oGod Julian MD Urethritis, unspecified ABSCESS 682.9 Resolved [...] by mouth twice a day 11/05 SULFAMETHOXAZOLE-TRIMETHOPRIM [id number] No Longer Active Good Julian MD Active IBUPROFEN 800 MG TABS 1 tid prn IBUPROFEN 59902403146 Active Good Julian MD Active ENDOCET 10-325 MG TABS 1 q 6 hr prn OXYCODONE-A CETAMINOPHEN 59304319530 Active Shola MCGILL Active HYDROCODONE-ACETAMINOPHEN 7.5-325 MG TABS 1 four times a day as needed for pain HYDROCODONE-ACETAMINOPHEN 12266926432 No Longer Activ crystal Julian MD Active KEFLEX 500 MG CAP 1 tab po tid CEPHALEXIN 145098 56422 No Longer Active Hira Moser APRN Active IBUPROFEN 800 MG TAB 1 pill three times daily as needed for pain IBUPROFEN 94709396963 No Longer Active Kalpesh Dong MD Active PROMETHAZINE-CODEINE 6.25-10 MG/5ML SYRP 1 tsp every 6 hrs prn c ough PROMETHAZINE-CODEINE 92007455986 No Longer Active Kalpesh Carr Active ALPRAZOLAM 0.5 MG TABS 1 PO bid PRN ALPRAZOLAM 421402 20750 Active Shola MCGILL Active HYDROCODONE-ACETAMINOPHEN 5-325 MG TABS 1 tab by mouth every 6 hours as needed HYDROCODONE-ACETAMINOPHEN 86967684311 No Longer Activ e hSola MCGILL Active CEPHALEXIN 500 MG CAPS 1 PO bid x 7 days CEPHAL EXIN 22440408883 No Longer Active Shola MCGILL Active BACTRIM DS 800-160 MG TAB 1 tab by mouth twice daily 2 TRIMETHOPRIM-SULFAMETHOXAZOLE 57687893069 No Longer Active Kalpesh Dong MD Active HYDROCODONE-ACETAMINOPHEN 5-325 MG TABS 1 PO tid PRN pain 5 HYDROCODONE-ACETAMINOPHEN 56936683682 No Longer Active Abhinav Galvan MD Active IMPLANON 68 MG IMPL IMPLANTED IN LEFT ARM ETONO GESTREL 81102359281 No Longer Active 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 CATALOGING ASSISTANT Active AMOXICILLIN 500 MG TABS 2 tabs PO bid x 10 d AM OXICILLIN 01629443341 No Longer Active Kalpesh Dong MD Active LEVAQUIN 500 MG TABS 1 PO q day x 7 days LEVOFL OXACIN 90169390976 No Longer Active Shola MCGILL Active PROAIR HFA 108 (90 BASE) MCG/ACT AERS 2 puff q 4-6 hrs PRN ALBUTEROL SULFATE 40051491131 Active Shola MCGILL Acti ve FIORICET 50-325-40 MG TABS 2 PO q 8 hrs PRN FOSTER [id number] 43709036751 Active Abdirahman Rios MD Active AMITRIPTYLINE HCL 25 MG TAB 1 tab by mouth daily 60 minutes before bedtime AMITRIPTYLINE HCL 90157455460 No Longer Active Shola MCGILL Active LORTAB 5 5-500 MG TABS 1/2 to 1 tablet by mouth go ry 6 hours as needed for pain HYDROCODONE-ACETAMINOPHEN 76494059156 No Longer Active Shola MCGILL Active CEPHALEXIN 500 MG TABS Take one by mouth four times daily, morning, noon, early evening and bedtime. CEPHALEXIN 71936190345 No Long er Active Hira Moser CATALOGING ASSISTANT Active TYLENOL/CODEINE #3 300-30 MG TAB 1-2 po q6hr PRN Pain ACETAMINOPHEN-CODEINE 22765747078 No Longer Active Edilberto Marino DO Active PRISTIQ 50 MG [id number] 1 po qd DESVENLAFAXI NE SUCCINATE 14559802646 No Longer Active Edilberto Marion DO Active PENICILLIN V POTASSIUM 500 MG TAB 1 four times a day 2 PENICILLIN V POTASSIUM 30453644122 No Longer Active Edilberto Marino DO Active DOXYCYCLINE HYCLATE 100 MG CAPS Take one (1) tablet by mouth twice a day DOXYCYCLINE HYCLATE 72155612023 No Longer Active Ronnie Galvan MD Active HYDROCODONE-ACETAMINOPHEN 5-325 MG TABS 1 po q 6hr PRN Pain 2011 HYDROCODONE-ACETAMINOPHEN 57825304228 No Longer Active Patri joan Perez RN Active BACTRIM DS 800-160 MG TAB 1 tab by mouth twice daily 2 TRIMETHOPRIM-SULFAMETHOXAZOLE 12504496972 No Longer Active Kalpesh Dong MD Active LORTAB 5 5-500 MG TABS 1/2 to 1 tablet by mouth go ry 4 hours as needed for pain HYDROCODONE-ACETAMINOPHEN 23875573122 No Longer Active Kalpesh Dong MD Active GENERESS FE 0.8-25 MG-MCG CHEW Take one by mouth daily NORETHIN-ETH ESTRADIOL-FE 93423202363 No Longer Active Kalpesh Dong MD Active HYDROCODONE-ACETAMINOPHEN 7.5-500 MG TABS 1-2 every 4 hours as needed HYDROCODONE-ACETAMINOPHEN 02212187567 No Longer Activ e Kalpesh Dong MD Active FERROUS SULFATE 325 (65 FE) MG TABS 1 tablet by mouth twice yung y FERROUS SULFATE 26246114956 No Longer Active Kalpesh Dong MD Active IBUPROFEN 600 MG TAB 1 po q6-8hr PRN IBUPROFEN 44266826581 No Longer Active Kalpesh Dong MD Active SPIRONOLACTONE 25 MG TAB 1 tablet by mouth daily 01/22 SPIRONOLACTONE 79432616527 No Longer Active Kalpesh Dong MD Acti ve HYDROCODONE-ACETAMINOPHEN 7.5-325 MG TABS 1 po QID PRN Pain 2011 HYDROCODONE-ACETAMINOPHEN 74221673733 No Longer Active Kalpesh Dong MD Active CLINDAMYCIN HCL 300 MG CAPS 1 po q6hr x 7 days CLINDAMYCIN HCL 56937215854 No Longer Active Edilberto Marino DO Active PREDNISONE 20 MG TAB 2 tabs daily for 4 days, 1 t ab daily for 4 days, 1/2 tab daily for 4 days PREDNISONE 80034326044 No Longer Active Edilberto Marino DO Active PERCOCET 5-325 MG TABS 1 tablet by mouth every 6 hours as ne eded for pain OXYCODONE-ACETAMINOPHEN 78637846935 No Longer Active Abdirahman Rios MD Active VITAMINS TABS Take one by mouth daily MV & MIN W/FE-FA TABS 28289788919 No Longer Active Abdirahman Rios MD Active LUIS 3-0.02 MG TABS 1 tablet by mouth daily as directed DROSPIRENONE-ETHINYL ESTRADIOL 54210667563 No Longer Active Abdirahman Rios MD Active LORATADINE 10 MG TABS 1 tablet by mouth daily L ORATADINE 67636180728 No Longer Active Kalpesh Dong MD Active HYDROCODONE-ACETAMINOPHEN 5-325 MG TABS 1 po q 6hr PRN Pain 2010 HYDROCODONE-ACETAMINOPHEN 88967630251 No Longer Active Edilberto Marino DO Active BACTRIM DS 800-160 MG TAB 1 tab by mouth twice daily 2 TRIMETHOPRIM-SULFAMETHOXAZOLE 43750302500 No Longer Active Abdirahman Rios MD Active 28-0.8 MG TABS Take one by mouth daily 09/20 VIT-FE FUMARATE-FA 53095238244 No Longer Active Abdirahman Rios MD Active CIPRO 500 MG TAB 1 tablet by mouth twice daily CIPROFLOXACIN HCL 21498086675 No Longer Active Abdirahman Rios MD Active BENADRYL 25 MG CAP 1 po q8hr PRN Congestion DIPHENHYDRAMINE HCL 78220255105 No Longer Active Abdirahman Rios MD Active ZOLOFT 50 MG TAB 1 po qd SERTRALINE HCL 627655 27741 No Longer Active Abdirahman Rios MD Active AMOXICILLIN 875 MG TABS 1 tab by mouth twice daily 201 08/09/13 AMOXICILLIN 28926118336 No Longer Active Abdirahman Rios MD Activ e AMOXICILLIN 875 MG TABS 1 tab by mouth twice daily 201 07/19/27 AMOXICILLIN 48722134583 No Longer Active Abdirahman Rios MD Activ e BACTRIM DS 800-160 MG TAB 2 tab by mouth twice daily 2 TRIMETHOPRIM-SULFAMETHOXAZOLE 86373592990 No Longer Active Abdirahman Rios MD Active KEFLEX 500 MG CAP 1 po tid x 10 days CEPHALEXIN 55280682333 No Longer Active Abdirahman Rios MD Active AMOXICILLIN 875 MG TABS 1 tab by mouth twice daily 201 07/18/07 AMOXICILLIN 93726553092 No Longer Active Abdirahman Rios MD Activ e BACTRIM DS 800-160 MG TAB 2 tab by mouth twice daily 2 BACTRIM DS 800-160 MG TAB TRIMETHOPRIM-SULFAMETHOXAZOLE Inactive ZOLOFT 50 MG TAB 1 po qd ZOLOFT 50 MG TAB 3129 41 SERTRALINE HCL Inactive BENADRYL 25 MG CAP 1 po q8hr PRN Congestion BENADRYL 25 MG CAP 7268199 DIPHENHYDRAMINE HCL Inactive 28-0.8 MG TABS Take one by mouth daily 09/20 28-0.8 MG TABS VIT-FE FUMARATE-FA Inactive HYDROCODONE-ACETAMINOPHEN 5-325 MG TABS 1 po q 6hr PRN Pain 2010 HYDROCODONE-ACETAMINOPHEN 5-325 MG TABS 089011 HYDROCODONE-ACETAMINOPHEN Inactive LORATADINE 10 MG TABS 1 tablet by mouth daily LORATADINE 10 MG TABS 823281 LORATADINE Inactive LUIS 3-0.02 MG TABS 1 tablet by mouth daily as directed LUIS 3-0.02 MG TABS DROSPIRENONE-ETHINYL ESTRADIOL Inactive VITAMINS TABS Take one by mouth daily VITAMINS TABS MV & MIN W/FE-FA TABS Inactive PERCOCET 5-325 MG TABS 1 tablet by mouth every 6 hours as ne eded for pain PERCOCET 5-325 MG TABS 8553627 OXYCODONE-ACETAMIN OPHEN Inactive PREDNISONE 20 MG TAB 2 tabs daily for 4 days, 1 t ab daily for 4 days, 1/2 tab daily for 4 days PREDNISONE 20 MG TAB 438613 PREDNISON E Inactive CLINDAMYCIN HCL 300 MG CAPS 1 po q6hr x 7 days CLINDAMYCIN HCL 300 MG CAPS 996452 CLINDAMYCIN HCL Inactive HYDROCODONE-ACETAMINOPHEN 7.5-325 MG TABS 1 po QID PRN Pain 2011 HYDROCODONE-ACETAMINOPHEN 7.5-325 MG TABS 660615 HYDROCODONE-ACETAMINOPHEN Inactive SPIRONOLACTONE 25 MG TAB 1 tablet by mouth daily 01/22 SPIRONOLACTONE 25 MG TAB 783693 SPIRONOLACTONE Inactive IBUPROFEN 600 MG TAB 1 po q6-8hr PRN IBUPROFEN 600 MG TAB 436434 IBUPROFEN Inactive FERROUS SULFATE 325 (65 FE) MG TABS 1 tablet by mouth twice yung y FERROUS SULFATE 325 (65 FE) MG TABS 677510 FERROUS SULF ATE Inactive HYDROCODONE-ACETAMINOPHEN 7.5-500 MG TABS 1-2 every 4 hours as needed HYDROCODONE-ACETAMINOPHEN 7.5-500 MG TABS 873604 HYDROCODONE-ACETAMINOPHEN Inactive GENERESS FE 0.8-25 MG-MCG CHEW [...] PRN Pain 2011 HYDROCODONE-ACETAMINOPHEN 5-325 MG TABS 102973 HYDROCODONE-ACETAMINOPHEN Inactive DOXYCYCLINE HYCLATE 100 MG CAPS Take one (1) tablet by mouth twice a day DOXYCYCLINE HYCLATE 100 MG CAPS 142178 DOXYCYCLINE HYCLATE Inactive PENICILLIN V POTASSIUM 500 MG TAB 1 four times a day 2 PENICILLIN V POTASSIUM 500 MG TAB 387830 PENICILLIN V POTASSIUM [employer]ach[employer] ctive PRISTIQ 50 MG [id number] 1 po qd PRISTIQ 50 MG [id number] DESVENLAFAXINE SUCCINATE Inactive TYLENOL/CODEINE #3 300-30 MG TAB 1-2 po q6hr PRN Pain TYLENOL/CODEINE #3 300-30 MG TAB 956455 ACETAMINOPHEN-CODEINE Inact krishna CEPHALEXIN 500 MG TABS Take one by mouth four times daily, morning, noon, early evening and bedtime. CEPHALEXIN 500 MG TABS 851410 CEPHALEXIN Inactive LORTAB 5 5-500 MG TABS 1/2 to 1 tablet by mouth go ry 6 hours as needed for pain LORTAB 5 5-500 MG TABS HYDROCODONE-A CETAMINOPHEN Inactive AMITRIPTYLINE HCL 25 MG TAB 1 tab by mouth daily 60 minutes before bedtime AMITRIPTYLINE HCL 25 MG TAB 712703 AMITRIPTYLINE HCL Inactive AMOXICILLIN 500 MG TABS 2 tabs PO bid x 10 d 7 AMOXICILLIN 500 MG TABS 793245 AMOXICILLIN Inactive IMPLANON 68 MG IMPL IMPLANTED IN LEFT ARM IMPLANON 68 MG IMPL ETONOGESTREL Inactive HYDROCODONE-ACETAMINOPHEN 5-325 MG TABS 1 PO tid PRN pain 5 HYDROCODONE-ACETAMINOPHEN 5-325 MG TABS 955685 HYDROCODONE-ACETAMIN OPHEN Inactive BACTRIM DS 800-160 MG TAB 1 tab by mouth twice daily 2 BACTRIM DS 800-160 MG TAB TRIMETHOPRIM-SULFAMETHOXAZOLE Inac tive CEPHALEXIN 500 MG CAPS 1 PO bid x 7 days CEPHALEXIN 500 MG CAPS 228037 CEPHALEXIN Inactive HYDROCODONE-ACETAMINOPHEN 5-325 MG TABS 1 tab by mouth every 6 hours as needed HYDROCODONE-ACETAMINOPHEN 5-325 MG TABS 984036 HYDROCODONE-ACETAMINOPHEN Inactive PROMETHAZINE-CODEINE 6.25-10 MG/5ML SYRP 1 tsp every 6 hrs prn c ough PROMETHAZINE-CODEINE 6.25-10 MG/5ML SYRP 287548 PROMETH AZINE-CODEINE Inactive IBUPROFEN 800 MG TAB 1 pill three times daily as needed for pain IBUPROFEN 800 MG TAB 668427 IBUPROFEN Inactive KEFLEX 500 MG CAP 1 tab po tid KEFLEX 500 MG CAP 410050 CEPHALEXIN Inactive HYDROCODONE-ACETAMINOPHEN 7.5-325 MG TABS 1 four times a day as needed for pain HYDROCODONE-ACETAMINOPHEN 7.5-325 MG TABS 827416 HYDROCODONE-ACETAMINOPHEN Inactive BACTRIM DS 800-160 MG TABS by mouth twice a day 11/05 BACTRIM DS 800-160 MG TABS SULFAMETHOXAZOLE-TRIMETHOPRIM Inactive AMOXICILLIN 875 MG TABS 1 tab by mouth twice daily 201 07/18/07 AMOXICILLIN 875 MG TABS 421777 AMOXICILLIN Inactive KEFLEX 500 MG CAP 1 po tid x 10 days KEFLEX 500 MG CAP 363135 CEPHALEXIN Inactive AMOXICILLIN 875 MG TABS 1 tab by mouth twice daily 201 07/19/27 AMOXICILLIN 875 MG TABS 675007 AMOXICILLIN Inactive AMOXICILLIN 875 MG TABS 1 tab by mouth twice daily 08/09/13 AMOXICILLIN 875 MG TABS 359842 AMOXICILLIN Inactive CIPRO 500 MG TAB 1 tablet by mouth twice daily CIPRO 500 MG TAB 595841 CIPROFLOXACIN HCL Inactive BACTRIM DS 800-160 MG TAB 1 tab by mouth twice daily 2 BACTRIM DS 800-160 MG TAB TRIMETHOPRIM-SULFAMETHOXAZOLE Inac tive LEVAQUIN 500 MG TABS 1 PO q day x 7 days LEVAQUIN 500 MG TABS 999508 LEVOFLOXACIN Inactive Advance Directives Directive Description Start Date PERMISSION TO SHARE Immunizations Vaccine Administration Date Value Standard Alf cription Seasonal influenza vaccine, injectable, containing preservative, for > 3 years old (Afluria, FluLaval, Fluzone, Fluvirin, Fluarix, Agriflu(>= 18 yo)) Fluzone (>3 yrs.) [[id number]] Influenza, seasonal, inject able Seasonal influenza vaccine, injectable, preservative free, for > 3 years old (Afluria, FluLaval, Fluzone, Fluvirin, Fluarix, Agriflu(>= 18 yo)) Fluzone preservative free (>3 yrs.) [[id number]] Influenza, seasonal, injectable, preservative free Seasonal influenza vaccine, injectable, containing preservative, for > 3 years old (Afluria, FluLaval, Fluzone, Fluvirin, Fluarix, Agriflu(>= 18 yo)) Fluzone (>3 yrs.) [[id number]] Influenza, seasonal, inject able Seasonal influenza vaccine, injectable, containing preservative, for > 3 years old (Afluria, FluLaval, Fluzone, Fluvirin, Fluarix, Agriflu(>= 18 yo)) Fluzone (>3 yrs.) [[id number]] Influenza, seasonal, inject able dT (Diphtheria and [...] mg/dL Chart Maintenance: Outside labs entered on [employer] - Hematology leukocyte count, blood 8.3 10*3/mm3 erythrocyte (RBC) count 5.2 10*6/mm3 hemoglobin, blood 14.2 g/dL hematocrit, blood 42.6 % mean corpuscular volume, RBC 82.4 fL mean corpuscular hemoglobin, RBC 27.5 pg red blood cell distribution width 12.9 % platelet count 316 10*3/mm3 Lab Report: CBC W/DIFF, Comp. Metabolic Panel, Thyroid Stimulating Hormo ... - Chemistry sodium, serum 140 mmol/L 109-234 9769/02/24 potassium, serum 4.3 mmol/L 3.5-5.2 chloride, serum [...] 4.3-6.0 Lab Report: T3, TOTAL, INSULIN - [employer] ry triiodothyronine, serum 78 ng/dL 76-181 Lab [...] mg/dL Encounters Code Encounter Date Provider Facility CPT-95479 Level 3 Est. Patient 14:11:58 CDT Kalpesh goins MD [facility] CPT-41879 Level 3 Est. Patient 16:50:00 CDT Michelle MERCADO [facility] CPT-06253 Level 3 Est. Patient 17:11:32 MACHINE I TRIMMER Brandie bates MD PhD [facility] CPT-98242 Level 3 Est. Patient 16:31:47 MACHINE I TRIMMER Shola MCGILL [facility] CPT-86922 Level 3 Est. Patient 17:51:10 MACHINE I TRIMMER Abhinav Galavn MD [facility] CPT-90098 Level 4 Est. Patient 12:54:56 MACHINE I TRIMMER Kalpesh goins MD [facility] CPT-71046 Level 4 Est. Patient 12:53:56 MACHINE I TRIMMER Kalpesh goins MD [facility] CPT-35087 Level 3 Est. Patient 17:56:58 CDT Shola MCGILL [facility] CPT-35937 Level 3 Est. Patient 14:26:20 CDT Janak butcher [facility] CPT-75178 Level 3 Est. Patient 09:38:41 CDT Shola Wright [facility] CPT-00706 Level 3 Est. Patient 14:45:26 CDT Edilberto tiwari [facility] CPT-89099 Level 3 Est. Patient 10:51:33 CDT Hira muniz [facility] CPT-27203 Level 3 Est. Patient 11:57:55 MACHINE I TRIMMER Shola Thao Adriana [facility] CPT-19165 Level 3 Est. Patient 09:53:33 MACHINE I TRIMMER Edilberto tiwari [facility] CPT-32693 Level 3 Est. Patient 14:42:54 MACHINE I TRIMMER Abhinav Galvan MD [facility] CPT-47036 Level 3 Est. Patient 15:10:02 CDT Janak butcher [facility] CPT-45493 Level 3 Est. Patient 15:20:20 CDT Theo dennis MD [facility] CPT-07717 Level 2 Est. Patient 14:08:57 CDT Kalpesh goins MD [facility] CPT-64485 Level 3 Est. Patient 13:56:19 CDT Abdirahman Rios MD [facility] CPT-11846 Level 3 Est. Patient 13:59:37 CDT Abdirahman Rios MD [facility] CPT-25122 Level 2 Est. Patient 14:44:59 CDT Kalpesh goins MD [facility]-73800 Level 3 Est. Patient 06:06:23 CDT Edilberto tiwari [facility] CPT-34456 Level 3 Est. Patient 15:23:54 CDT Abdirahman Rios MD [facility] CPT-10006 Level 3 Est. Patient 15:43:49 CDT Abdirahman Rios MD [facility] CPT-92135 Level 3 Est. Patient 12:46:47 MACHINE I TRIMMER Abdirahman Rios MD [facility] CPT-76029 Level 3 Est. Patient 08:13:35 MACHINE I TRIMMER Abdirahman Rios MD [facility] CPT-89588 Level 2 Est. Patient 09:36:42 MACHINE I TRIMMER Abdirahman Rios MD [facility] CPT-57294 Level 3 Est. Patient 10:56:43 CDT Abdirahman Rios MD [facility] CPT-33684 Level 3 Est. Patient 18:24:52 CDT Abdirahman Rios MD [facility] CPT-49394 Level 3 Est. Patient 13:27:22 CDT Abdirahman Rios MD [facility] Procedures Code Procedure Name Date Entry Date Standard Desc ription CPT-OV Office Visit 15:34:48 CDT CPT-02966 Postop F/U Visit 14:50:12 CDT CPT-82189 Postop F/U Visit 14:41:10 CDT CPT-13592 Venipuncture Draw Fee 11:38:04 MACHINE I TRIMMER CPT-64401 Postop F/U Visit 19:02:59 MACHINE I TRIMMER CPT-19574 Postop F/U Visit 12:04:54 MACHINE I TRIMMER CPT-59866 Administration single or combination vac cine inc oral 15:56:43 CDT CPT-03722 Influenza split virus > age 3 15:56:43 CDT CPT-15003 Hand comp min 3V 14:25:19 CDT CPT-08389 Postop F/U Visit 21:40:51 CDT CPT-43137 Postop F/U Visit 10:58:43 CDT CPT-16882 Administration single or combination vac cine inc oral 12:33:54 MACHINE I TRIMMER CPT-93414 Influenza Preservative Free split virus >age 3 12:33:54 MACHINE I TRIMMER CPT-64953 Administration single or combination vac cine inc oral 09:30:51 CDT CPT-86212 Influenza split virus > age 3 09:30:51 CDT CPT-56697 Postop F/U Visit 15:14:53 CDT CPT-41338 Postop F/U Visit 13:50:14 CDT CPT-13723 Postop F/U Visit 13:34:52 CDT CPT-OV Office Visit 16:55:03 CDT CPT-22056 Prospect of cervix w bx ECC 13:32:50 CDT 10/19 CPT-J1885 Toradol 60 mg (Ketorolac) 15:31:59 CDT 2011 CPT-J1885 Toradol 60 mg (Ketorolac) 15:23:54 CDT 2011 CPT-15894 Visit 11:34:37 MACHINE I TRIMMER CPT-26257 Visit 10:52:39 MACHINE I TRIMMER CPT-44813 Visit 10:12:02 MACHINE I TRIMMER CPT-88757 Visit 11:22:43 MACHINE I TRIMMER CPT-37659 Visit 11:24:12 MACHINE I TRIMMER CPT-56078 Visit 10:47:05 MACHINE I TRIMMER CPT-OV Office Visit 10:26:16 MACHINE I TRIMMER CPT-OV Office Visit 15:34:31 MACHINE I TRIMMER CPT-92926 Visit 10:42:08 MACHINE I TRIMMER CPT-84888 Visit 10:52:45 MACHINE I TRIMMER CPT-000 Give Appropriate Flu Vaccine 16:56:41 CDT 2 CPT-87262 Administration single or combination vac cine inc oral 10:33:21 CDT CPT-76850 Influenza split virus > age 3 10:33:21 CDT CPT-24434 Visit 13:23:09 CDT CPT-55886 Visit 18:24:52 CDT CPT-34402 Sono OB comp > 14 weeks 12:07:49 CDT 04/07
--- OUTSIDE RECORDS SUMMARY | 2020-01-18 17:07 | XMS REPORT | Clinical Summary ---
Author Author Admin, Jeri Rashid Organization [facility] Address Unknown Phone Unavailable Allergies, [...] Name NDC Status Provider Patient Instruction PERCOCET 7.5-325 MG TABS 1 PO q 8 hrs PRN pain OXYCODONE-ACETAMINOPHEN [id number] No Longer Active Shola MCGILL Active HYDROCODONE-ACETAMINOPHEN 10-325 MG TABS 1 by mouth ev chaka 8 hours as needed for pain HYDROCODONE-ACETAMINOPHEN 31912982046 Active Shola MCGILL Active HYDROCODONE-ACETAMINOPHEN 7.5-325 MG TABS 1 by mouth e very 6 hours as needed for pain HYDROCODONE-ACETAMINOPHEN 14145960642 No Longer Active Good Julian MD Active LC-5 LIDOCAINE 5 % CREA apply 1 time daily to affected area LIDOCAINE (ANORECTAL) 10267199668 Active Shola MCGILL Active CLINDAMYCIN HCL 300 MG CAPS 1 po QID x 7 days CLINDAMYCIN HCL 99353478510 No Longer Active Abdirahman Rios MD Activ e BACTRIM DS 800-160 MG TABS 1 po BID x 7 days 5 SULFAMETHOXAZOLE-TRIMETHOPRIM 45847149645 No Longer Active Abdirahman Rios MD Active ENDOCET 10-325 MG TABS 1 q 6 hr prn OXYCODONE-ACETAMINOPHEN 64803669718 No Longer Active Abdirahman Rios MD Active IBUPROFEN 800 MG TABS 1 tid prn IBUPROFEN 924182 23850 No Longer Active Abdirahman Rios MD Active BACTRIM DS 800-160 MG TABS by mouth twice a day 11/05 SULFAMETHOXAZOLE-TRIMETHOPRIM 85981410500 No Longer Active Good Julian MD Active HYDROCODONE-ACETAMINOPHEN 7.5-325 MG TABS 1 four times a day as needed for pain HYDROCODONE-ACETAMINOPHEN 31804727883 No Longer Activ e Good Julian MD Active KEFLEX 500 MG CAP 1 tab po tid CEPHALEXIN 086787 21182 No Longer Active Hira Moser PRINCIPAL NETWORK ENGINEER Active IBUPROFEN 800 MG TAB 1 pill three times daily as needed for pain IBUPROFEN 73294887302 No Longer Active Kalpesh Dong MD Active PROMETHAZINE-CODEINE 6.25-10 MG/5ML SYRP 1 tsp every 6 hrs prn c ough PROMETHAZINE-CODEINE 84496148734 No Longer Active Kalpesh Carr Active ALPRAZOLAM 0.5 MG TABS 1 PO bid PRN ALPRAZOLAM 968406 66524 Active Shola MCGILL Active HYDROCODONE-ACETAMINOPHEN 5-325 MG TABS 1 tab by mouth every 6 hours as needed HYDROCODONE-ACETAMINOPHEN 36754677328 No Longer Activ e Shola MCGILL Active CEPHALEXIN 500 MG CAPS 1 PO bid x 7 days CEPHAL EXIN 17485679220 No Longer Active Shola MCGILL Active BACTRIM DS 800-160 MG TAB 1 tab by mouth twice daily 2 TRIMETHOPRIM-SULFAMETHOXAZOLE 53391847502 No Longer Active Kalpesh Dong MD Active HYDROCODONE-ACETAMINOPHEN 5-325 MG TABS 1 PO tid PRN pain 5 HYDROCODONE-ACETAMINOPHEN 84704221797 No Longer Active Abhinav Galvan MD Active IMPLANON 68 MG IMPL IMPLANTED IN LEFT ARM ETONO GESTREL 48414572475 No Longer Active Hira Moser APRN Active AMOXICILLIN 500 MG TABS 2 tabs PO bid x 10 d AM OXICILLIN 16890856783 No Longer Active Kalpesh Dong MD Active LEVAQUIN 500 MG TABS 1 PO q day x 7 days LEVOFL OXACIN 57800346293 No Longer Active Shola MCGILL Active PROAIR HFA 108 (90 BASE) MCG/ACT AERS 2 puff q 4-6 hrs PRN ALBUTEROL SULFATE 49499425874 Active Shola MCGILL Acti ve FIORICET 50-325-40 MG TABS 2 PO q 8 hrs PRN FOSTER [id number] Active Shola MCGILL Active AMITRIPTYLINE HCL 25 MG TAB 1 tab by mouth daily 60 minutes before bedtime AMITRIPTYLINE HCL 16808232003 No Longer Active Shola MCGILL Active LORTAB 5 5-500 MG TABS 1/2 to 1 tablet by mouth go ry 6 hours as needed for pain HYDROCODONE-ACETAMINOPHEN 25238555065 No Longer Active Shola MCGILL Active CEPHALEXIN 500 MG TABS Take one by mouth four times daily, morning, noon, early evening and bedtime. CEPHALEXIN 07271160217 No Long er Active Hira Moser APRN Active TYLENOL/CODEINE #3 300-30 MG TAB 1-2 po q6hr PRN Pain ACETAMINOPHEN-CODEINE 02865890300 No Longer Active Edilberto Marino DO Active PRISTIQ 50 MG [id number] 1 po qd DESVENLAFAXI NE SUCCINATE 38825413925 No Longer Active Edilberto Marino DO Active PENICILLIN V POTASSIUM 500 MG TAB 1 four times a day 2 PENICILLIN V POTASSIUM 69730232106 No Longer Active Edilberto Marino DO Active DOXYCYCLINE HYCLATE 100 MG CAPS Take one (1) tablet by mouth twice a day DOXYCYCLINE HYCLATE 62901282659 No Longer Active Ronnie Galvan MD Active HYDROCODONE-ACETAMINOPHEN 5-325 MG TABS 1 po q 6hr PRN Pain 2011 HYDROCODONE-ACETAMINOPHEN 85883527807 No Longer Active Jerson Perez RN Active BACTRIM DS 800-160 MG TAB 1 tab by mouth twice daily 2 TRIMETHOPRIM-SULFAMETHOXAZOLE 57712407960 No Longer Active Kalpesh Dong MD Active LORTAB 5 5-500 MG TABS 1/2 to 1 tablet by mouth go ry 4 hours as needed for pain HYDROCODONE-ACETAMINOPHEN 70852525341 No Longer Active Kalpesh Dong MD Active GENERESS FE 0.8-25 MG-MCG CHEW Take one by mouth daily NORETHIN-ETH ESTRADIOL-FE 01248186124 No Longer Active Kalpesh Dong MD Active HYDROCODONE-ACETAMINOPHEN 7.5-500 MG TABS 1-2 every 4 hours as needed HYDROCODONE-ACETAMINOPHEN 95468340249 No Longer Activ e Kalpesh Dong MD Active FERROUS SULFATE 325 (65 FE) MG TABS 1 tablet by mouth twice yung y FERROUS SULFATE 95053040463 No Longer Active Kalpesh Dong MD Active IBUPROFEN 600 MG TAB 1 po q6-8hr PRN IBUPROFEN 99331380468 No Longer Active Kalpesh Dong MD Active SPIRONOLACTONE 25 MG TAB 1 tablet by mouth daily 01/22 SPIRONOLACTONE 65003929418 No Longer Active Kalpesh Dong MD Acti ve HYDROCODONE-ACETAMINOPHEN 7.5-325 MG TABS 1 po QID PRN Pain 2011 HYDROCODONE-ACETAMINOPHEN 37251245240 No Longer Active Kalpesh Dong MD Active CLINDAMYCIN HCL 300 MG CAPS 1 po q6hr x 7 days CLINDAMYCIN HCL 96306894961 No Longer Active Edilberto Marino DO Active PREDNISONE 20 MG TAB 2 tabs daily for 4 days, 1 t ab daily for 4 days, 1/2 tab daily for 4 days PREDNISONE 56838614058 No Longer Active Edilberto Marino DO Active PERCOCET 5-325 MG TABS 1 tablet by mouth every 6 hours as ne eded for pain OXYCODONE-ACETAMINOPHEN 75759376651 No Longer Active Abdirahman Rios MD Active VITAMINS TABS Take one by mouth daily MV & MIN W/FE-FA TABS 49190348666 No Longer Active Abdirahman Rios MD Active LUIS 3-0.02 MG TABS 1 tablet by mouth daily as directed DROSPIRENONE-ETHINYL ESTRADIOL 24208283793 No Longer Active Abdirahman Rios MD Active LORATADINE 10 MG TABS 1 tablet by mouth daily L ORATADINE 45190853081 No Longer Active Kalpesh Dong MD Active HYDROCODONE-ACETAMINOPHEN 5-325 MG TABS 1 po q 6hr PRN Pain 2010 HYDROCODONE-ACETAMINOPHEN 38617374902 No Longer Active Edilberto Marino DO Active BACTRIM DS 800-160 MG TAB 1 tab by mouth twice daily 2 TRIMETHOPRIM-SULFAMETHOXAZOLE 11606738198 No Longer Active Abdirahman Rios MD Active 28-0.8 MG TABS Take one by mouth daily 09/20 VIT-FE FUMARATE-FA 05319482516 No Longer Active Abdirahman Rios MD Active CIPRO 500 MG TAB 1 tablet by mouth twice daily CIPROFLOXACIN HCL 40744013944 No Longer Active Abdirahman Rios MD Active BENADRYL 25 MG CAP 1 po q8hr PRN Congestion DIPHENHYDRAMINE HCL 92824647652 No Longer Active Abdirahman Rios MD Active ZOLOFT 50 MG TAB 1 po qd SERTRALINE HCL 181754 49894 No Longer Active Abdirahman Rios MD Active AMOXICILLIN 875 MG TABS 1 tab by mouth twice daily 201 08/09/13 AMOXICILLIN 58530133476 No Longer Active Abdirahman Rios MD Activ e AMOXICILLIN 875 MG TABS 1 tab by mouth twice daily 201 07/19/27 AMOXICILLIN 19742690373 No Longer Active Abdirahman Rios MD Activ e BACTRIM DS 800-160 MG TAB 2 tab by mouth twice daily 2 TRIMETHOPRIM-SULFAMETHOXAZOLE 73427755570 No Longer Active Abdirahman Rios MD Active KEFLEX 500 MG CAP 1 po tid x 10 days CEPHALEXIN 58239517092 No Longer Active Abdirahman Rios MD Active AMOXICILLIN 875 MG TABS 1 tab by mouth twice daily 201 07/18/07 AMOXICILLIN 21443062804 No Longer Active Abdirahman Rios MD Activ e BACTRIM DS 800-160 MG TAB 2 tab by mouth twice daily 2 BACTRIM DS 800-160 MG TAB TRIMETHOPRIM-SULFAMETHOXAZOLE Inactive ZOLOFT 50 MG TAB 1 po qd ZOLOFT 50 MG TAB 3129 41 SERTRALINE HCL Inactive BENADRYL 25 MG CAP 1 po q8hr PRN Congestion BENADRYL 25 MG CAP 6365617 DIPHENHYDRAMINE HCL Inactive 28-0.8 MG TABS Take one by mouth daily 09/20 28-0.8 MG TABS VIT-FE FUMARATE-FA Inactive HYDROCODONE-ACETAMINOPHEN 5-325 MG TABS 1 po q 6hr PRN Pain 2010 HYDROCODONE-ACETAMINOPHEN 5-325 MG TABS 936113 HYDROCODONE-ACETAMINOPHEN Inactive LORATADINE 10 MG TABS 1 tablet by mouth daily LORATADINE 10 MG TABS 802638 LORATADINE Inactive LUIS 3-0.02 MG TABS 1 tablet by mouth daily as directed LUIS 3-0.02 MG TABS DROSPIRENONE-ETHINYL ESTRADIOL Inactive VITAMINS TABS Take one by mouth daily VITAMINS TABS MV & MIN W/FE-FA TABS Inactive PERCOCET 5-325 MG TABS 1 tablet by mouth every 6 hours as ne eded for pain PERCOCET 5-325 MG TABS 7018939 OXYCODONE-ACETAMIN OPHEN Inactive PREDNISONE 20 MG TAB 2 tabs daily for 4 days, 1 t ab daily for 4 days, 1/2 tab daily for 4 days PREDNISONE 20 MG TAB 333082 PREDNISON E Inactive CLINDAMYCIN HCL 300 MG CAPS 1 po q6hr x 7 days CLINDAMYCIN HCL 300 MG CAPS 666290 CLINDAMYCIN HCL Inactive HYDROCODONE-ACETAMINOPHEN 7.5-325 MG TABS 1 po QID PRN Pain 2011 HYDROCODONE-ACETAMINOPHEN 7.5-325 MG TABS 538390 HYDROCODONE-ACETAMINOPHEN Inactive SPIRONOLACTONE 25 MG TAB 1 tablet by mouth daily 01/22 SPIRONOLACTONE 25 MG TAB 204230 SPIRONOLACTONE Inactive IBUPROFEN 600 MG TAB 1 po q6-8hr PRN IBUPROFEN 600 MG TAB 134988 IBUPROFEN Inactive FERROUS SULFATE 325 (65 FE) MG TABS 1 tablet by mouth twice yung y FERROUS SULFATE 325 (65 FE) MG TABS 609463 FERROUS SULF ATE Inactive HYDROCODONE-ACETAMINOPHEN 7.5-500 MG [...] PRN Pain 2011 HYDROCODONE-ACETAMINOPHEN 5-325 MG TABS 669509 HYDROCODONE-ACETAMINOPHEN Inactive DOXYCYCLINE HYCLATE 100 MG CAPS Take one (1) tablet by mouth twice a day DOXYCYCLINE HYCLATE 100 MG CAPS 883394 DOXYCYCLINE HYCLATE Inactive PENICILLIN V POTASSIUM 500 MG TAB 1 four times a day 2 PENICILLIN V POTASSIUM 500 MG TAB 760723 PENICILLIN V POTASSIUM Siri ctive PRISTIQ 50 MG [id number] 1 po qd PRISTIQ 50 MG [id number] DESVENLAFAXINE SUCCINATE Inactive TYLENOL/CODEINE #3 300-30 MG TAB 1-2 po q6hr PRN Pain TYLENOL/CODEINE #3 300-30 MG TAB 248896 ACETAMINOPHEN-CODEINE Inact krishna CEPHALEXIN 500 MG TABS Take one by mouth four times daily, morning, noon, early evening and bedtime. CEPHALEXIN 500 MG TABS 222477 CEPHALEXIN Inactive LORTAB 5 5-500 MG TABS 1/2 to 1 tablet by mouth go ry 6 hours as needed for pain LORTAB 5 5-500 MG TABS HYDROCODONE-A CETAMINOPHEN Inactive AMITRIPTYLINE HCL 25 MG TAB 1 tab by mouth daily 60 minutes before bedtime AMITRIPTYLINE HCL 25 MG TAB 819766 AMITRIPTYLINE HCL Inactive AMOXICILLIN 500 MG TABS 2 tabs PO bid x 10 d 7 AMOXICILLIN 500 MG TABS 390152 AMOXICILLIN Inactive IMPLANON 68 MG IMPL IMPLANTED IN LEFT ARM IMPLANON 68 MG IMPL ETONOGESTREL Inactive HYDROCODONE-ACETAMINOPHEN 5-325 MG TABS 1 PO tid PRN pain 5 HYDROCODONE-ACETAMINOPHEN 5-325 MG TABS 380129 HYDROCODONE-ACETAMIN OPHEN Inactive BACTRIM DS 800-160 MG TAB 1 tab by mouth twice daily 2 BACTRIM DS 800-160 MG TAB TRIMETHOPRIM-SULFAMETHOXAZOLE Inac tive CEPHALEXIN 500 MG CAPS 1 PO bid x 7 days CEPHALEXIN 500 MG CAPS 400322 CEPHALEXIN Inactive HYDROCODONE-ACETAMINOPHEN 5-325 MG TABS 1 tab by mouth every 6 hours as needed HYDROCODONE-ACETAMINOPHEN 5-325 MG TABS 187177 HYDROCODONE-ACETAMINOPHEN Inactive PROMETHAZINE-CODEINE 6.25-10 MG/5ML SYRP 1 tsp every 6 hrs prn c ough PROMETHAZINE-CODEINE 6.25-10 MG/5ML SYRP 686537 PROMETH AZINE-CODEINE Inactive IBUPROFEN 800 MG TAB 1 pill three times daily as needed for pain IBUPROFEN 800 MG TAB 788507 IBUPROFEN Inactive KEFLEX 500 MG CAP 1 tab po tid KEFLEX 500 MG CAP 904160 CEPHALEXIN Inactive HYDROCODONE-ACETAMINOPHEN 7.5-325 MG TABS 1 four times a day as needed for pain HYDROCODONE-ACETAMINOPHEN 7.5-325 MG TABS 054681 HYDROCODONE-ACETAMINOPHEN Inactive BACTRIM DS 800-160 MG TABS by mouth twice a day 11/05 BACTRIM DS 800-160 MG TABS SULFAMETHOXAZOLE-TRIMETHOPRIM Inactive IBUPROFEN 800 MG TABS 1 tid prn IBUPROFEN 800 MG TABS 336746 IBUPROFEN Inactive ENDOCET 10-325 MG TABS 1 q 6 hr prn ENDOC ET 10-325 MG TABS 8702504 OXYCODONE-ACETAMINOPHEN Inactive HYDROCODONE-ACETAMINOPHEN 7.5-325 MG TABS 1 by mouth e very 6 hours as needed for pain HYDROCODONE-ACETAMINOPHEN 7.5-325 MG TABS 404021 HYDROCODONE-ACETAMINOPHEN Inactive PERCOCET 7.5-325 MG TABS 1 PO q 8 hrs PRN pain PERCOCET 7.5-325 MG TABS 2368601 OXYCODONE-ACETAMINOPHEN Inactive AMOXICILLIN 875 MG TABS 1 tab by mouth twice daily 201 07/18/07 AMOXICILLIN 875 MG TABS 692061 AMOXICILLIN Inactive KEFLEX 500 MG CAP 1 po tid x 10 days KEFLEX 500 MG CAP 075294 CEPHALEXIN Inactive AMOXICILLIN 875 MG TABS 1 tab by mouth twice daily 201 07/19/27 AMOXICILLIN 875 MG TABS 092594 AMOXICILLIN Inactive AMOXICILLIN 875 MG TABS 1 tab by mouth twice daily 201 08/09/13 AMOXICILLIN 875 MG TABS 572463 AMOXICILLIN Inactive CIPRO 500 MG TAB 1 tablet by mouth twice daily CIPRO 500 MG TAB 228636 CIPROFLOXACIN HCL Inactive BACTRIM DS 800-160 MG TAB 1 tab by mouth twice daily 2 BACTRIM DS 800-160 MG TAB TRIMETHOPRIM-SULFAMETHOXAZOLE Inac tive LEVAQUIN 500 MG TABS 1 PO q day x 7 days LEVAQUIN 500 MG TABS 862204 LEVOFLOXACIN Inactive CLINDAMYCIN HCL 300 MG CAPS 1 po QID x 7 days CLINDAMYCIN HCL 300 MG CAPS 965408 CLINDAMYCIN HCL Inactive Advance Directives Directive Description Start Date PERMISSION TO SHARE Immunizations Vaccine Administration Date Value Standard Alf cription Seasonal influenza vaccine, injectable, containing preservative, for > 3 years old (Afluria, FluLaval, Fluzone, Fluvirin, Fluarix, Agriflu(>= 18 yo)) Fluzone (>3 yrs.) [[id number]] Influenza, seasonal, inject able Seasonal influenza vaccine, injectable, preservative free, for > 3 years old (Afluria, FluLaval, Fluzone, Fluvirin, Fluarix, Agriflu(>= 18 yo)) Fluzone preservative free (>3 yrs.) [[id number]] Influenza, seasonal, injectable, preservative free Seasonal influenza vaccine, injectable, containing preservative, for > 3 years old (Afluria, FluLaval, Fluzone, Fluvirin, Fluarix, Agriflu(>= 18 yo)) Fluzone (>3 yrs.) [[id number]] Influenza, seasonal, inject able Seasonal influenza vaccine, injectable, containing preservative, for > 3 years old (Afluria, FluLaval, Fluzone, Fluvirin, Fluarix, Agriflu(>= 18 yo)) Fluzone (>3 yrs.) [[id number]] Influenza, seasonal, inject able dT (Diphtheria and [...] mg/dL Chart Maintenance: Outside labs entered on [employer] - Hematology leukocyte count, blood 8.3 10*3/mm3 erythrocyte (RBC) count 5.2 10*6/mm3 hemoglobin, blood 14.2 g/dL hematocrit, blood 42.6 % mean corpuscular volume, RBC 82.4 fL mean corpuscular hemoglobin, RBC 27.5 pg red blood cell distribution width 12.9 % platelet count 316 10*3/mm3 Lab Report: CBC W/DIFF, Comp. Metabolic Panel, Thyroid Stimulating Hormo ... - Chemistry sodium, serum 140 mmol/L 547-495 1164/02/24 potassium, serum 4.3 mmol/L 3.5-5.2 chloride, serum [...] 4.3-6.0 Lab Report: T3, TOTAL, INSULIN - Drawing Operator ry triiodothyronine (T3), serum 78 ng/dL [...] mg/dL Encounters Code Encounter Date Provider Facility CPT-19883 Level 3 Est. Patient 14:19:37 CDT Abdirahman Rios MD [facility] CPT-46843 Level 3 Est. Patient 14:11:58 CDT Kalpesh goins MD [facility] CPT-30627 Level 3 Est. Patient 16:50:00 CDT Michelle MERCADO [facility] CPT-84774 Level 3 Est. Patient 17:11:32 CONSTRUCTION ENGINEERING MANAGER Brandie bates MD PhD [facility] CPT-01891 Level 3 Est. Patient 16:31:47 CONSTRUCTION ENGINEERING MANAGER Shola MCGILL [facility] CPT-85774 Level 3 Est. Patient 17:51:10 CONSTRUCTION ENGINEERING MANAGER Abhinav Galvan MD [facility] CPT-95536 Level 4 Est. Patient 12:54:56 CONSTRUCTION ENGINEERING MANAGER Kalpesh goins MD [facility] CPT-25666 Level 4 Est. Patient 12:53:56 CONSTRUCTION ENGINEERING MANAGER Kalpesh goins MD [facility] CPT-25868 Level 3 Est. Patient 17:56:58 CDT Shola Wright [facility] CPT-58999 Level 3 Est. Patient 14:26:20 CDT Janak butcher [facility] CPT-22316 Level 3 Est. Patient 09:38:41 CDT Shola Thao Adriana [facility] CPT-62940 Level 3 Est. Patient 14:45:26 CDT Edilberto tiwari [facility] CPT-35995 Level 3 Est. Patient 10:51:33 [facility] Est. Patient 11:57:55 CONSTRUCTION ENGINEERING MANAGER Shola Thao Adriana [facility] CPT-27520 Level 3 Est. Patient 09:53:33 CONSTRUCTION ENGINEERING MANAGER Edilberto tiwari [facility] CPT-98502 Level 3 Est. Patient 14:42:54 CONSTRUCTION ENGINEERING MANAGER Abhinav Galvan MD [facility] CPT-23921 Level 3 Est. Patient 15:10:02 CDT Janak butcher [facility] CPT-21531 Level 3 Est. Patient 15:20:20 CDT Theo dennis MD [facility] CPT-17597 Level 2 Est. Patient 14:08:57 CDT Kalpesh goins MD [facility]-74012 Level 3 Est. Patient 13:56:19 CDT Abdirahman Rios MD [facility] CPT-80597 Level 3 Est. Patient 13:59:37 CDT Abdirahman Rios MD [facility] CPT-05359 Level 2 Est. Patient 14:44:59 CDT Kalpesh goins MD [facility] CPT-61400 Level 3 Est. Patient 06:06:23 CDT Edilberto tiwari DO [facility] CPT-98454 Level 3 Est. Patient 15:23:54 CDT Abdirahman Rios MD [facility] CPT-39895 Level 3 Est. Patient 15:43:49 CDT Abdirahman Rios MD [facility] CPT-13581 Level 3 Est. Patient 12:46:47 CONSTRUCTION ENGINEERING MANAGER Abdirahman Rios MD [facility] CPT-01887 Level 3 Est. Patient 08:13:35 CONSTRUCTION ENGINEERING MANAGER Abdirahman Rios MD [facility] CPT-47358 Level 2 Est. Patient 09:36:42 CONSTRUCTION ENGINEERING MANAGER Abdirahman Rios MD [facility] CPT-80795 Level 3 Est. Patient 10:56:43 CDT Abdirahman Rios MD [facility] CPT-34527 Level 3 Est. Patient 18:24:52 CDT Abdirahman Rios MD [facility] CPT-08177 Level 3 Est. Patient 13:27:22 CDT Abdirahman Rios MD [facility] Procedures Code Procedure Name Date Entry Date Standard Desc ription CPT-OV Office Visit 16:16:36 CDT CPT-OV Office Visit 15:34:48 CDT CPT-36201 Postop F/U Visit 14:50:12 CDT CPT-10507 Postop F/U Visit 14:41:10 CDT CPT-08195 Venipuncture Draw Fee 11:38:04 CONSTRUCTION ENGINEERING MANAGER CPT-23277 Postop F/U Visit 19:02:59 CONSTRUCTION ENGINEERING MANAGER CPT-04662 Postop F/U Visit 12:04:54 CONSTRUCTION ENGINEERING MANAGER CPT-21535 Administration single or combination vac cine inc oral 15:56:43 CDT CPT-11710 Influenza split virus > age 3 15:56:43 CDT CPT-33636 Hand comp min 3V 14:25:19 CDT CPT-86845 Postop F/U Visit 21:40:51 CDT CPT-40700 Postop F/U Visit 10:58:43 CDT CPT-84785 Administration single or combination vac cine inc oral 12:33:54 CONSTRUCTION ENGINEERING MANAGER CPT-80639 Influenza Preservative Free split virus >age 3 12:33:54 CONSTRUCTION ENGINEERING MANAGER CPT-85632 Administration single or combination vac cine inc oral 09:30:51 CDT CPT-06239 Influenza split virus > age 3 09:30:51 CDT CPT-09090 Postop F/U Visit 15:14:53 CDT CPT-61641 Postop F/U Visit 13:50:14 CDT CPT-29366 Postop F/U Visit 13:34:52 CDT CPT-OV Office Visit 16:55:03 CDT CPT-80083 [place] cervix w bx ECC 13:32:50 CDT 10/19 CPT-J1885 Toradol 60 mg (Ketorolac) 15:31:59 CDT 2011 CPT-J1885 Toradol 60 mg (Ketorolac) 15:23:54 CDT 2011 CPT-52046 Visit 11:34:37 CONSTRUCTION ENGINEERING MANAGER CPT-93373 Visit 10:52:39 CONSTRUCTION ENGINEERING MANAGER CPT-86292 Visit 10:12:02 CONSTRUCTION ENGINEERING MANAGER CPT-28163 Visit 11:22:43 CONSTRUCTION ENGINEERING MANAGER CPT-27154 Visit 11:24:12 CONSTRUCTION ENGINEERING MANAGER CPT-56079 Visit 10:47:05 CONSTRUCTION ENGINEERING MANAGER CPT-OV Office Visit 10:26:16 CONSTRUCTION ENGINEERING MANAGER CPT-OV Office Visit 15:34:31 CONSTRUCTION ENGINEERING MANAGER CPT-23179 Visit 10:42:08 CONSTRUCTION ENGINEERING MANAGER CPT-28274 Visit 10:52:45 CONSTRUCTION ENGINEERING MANAGER CPT-000 Give Appropriate Flu Vaccine 16:56:41 CDT 2 CPT-76006 Administration single or combination vac cine inc oral 10:33:21 CDT CPT-97176 Influenza split virus > age 3 10:33:21 CDT CPT-23084 Visit 13:23:09 CDT CPT-58542 Visit 18:24:52 CDT CPT-25629 Sono OB comp > 14 weeks 12:07:49 CDT 04/07
--- OUTSIDE RECORDS SUMMARY | 2020-01-18 17:08 | XMS REPORT | Clinical Summary ---
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 HYDROCODONE-ACETAMINOPHEN 5-325 MG TABS 2 tablets by m outh every 8 hours as needed for pain HYDROCODONE-ACETAMINOPHEN 51166254320 Acti ve Shola MCGILL Active HYDROCODONE-ACETAMINOPHEN 10-325 MG TABS 1 by mouth ev chaka 8 hours as needed for pain HYDROCODONE-ACETAMINOPHEN 36984174560 No Longer Active Jillina Frazell VICE PRESIDENT [employer] Active LORATADINE 10 MG TABS 1 tablet by mouth daily L ORATADINE 28995514319 No Longer Active Jillina Frazell [employer]ICE PRESIDENT [employer] Active DIFLUCAN 150 MG TAB 1 qODay x 2 doses FLUCONAZO LE 82675592726 No Longer Active Jillina Frazell VICE PRESIDENT [employer] Active CYCLOBENZAPRINE HCL 10 MG TABS 1/2 - 1 tab PO tid PRN back p ain, muscle spasm CYCLOBENZAPRINE HCL 63546248337 No Longer Active Karen herson Frazell VICE PRESIDENT [employer] Active AUGMENTIN 875-125 MG TAB 1 tab by mouth twice daily with food 20 22/05/07 AMOXICILLIN-POT CLAVULANATE 10519720426 No Longer Active Loida Rios MD Active MOBIC 15 MG TABS 1 tab daily MELOXICAM 399261135 14 No Longer Active Abdirahman Rios MD Active PERCOCET 7.5-325 MG TABS 1 PO tid PRN pain OXYCODONE-ACETAMINOPHEN 54333772626 No Longer Active Abdirahman Rios MD Active LIDODERM 5 % PTCH One patch to painful area [place] N. On for 12 hrs, off for 12 hrs. LIDOCAINE 42301287553 No Longer Active Abdirahman Rios MD Active PERCOCET 7.5-325 MG TABS 1 PO q 8 hrs PRN pain OXYCODONE-ACETAMINOPHEN 78764422235 No Longer Active Shola MCGILL Active HYDROCODONE-ACETAMINOPHEN 7.5-325 MG TABS 1 by mouth e very 6 hours as needed for pain HYDROCODONE-ACETAMINOPHEN 88056205176 No Longer Active Good Julian MD Active CLINDAMYCIN HCL 300 MG CAPS 1 po QID x 7 days CLINDAMYCIN HCL 40882708636 No Longer Active Abdirahman Rios MD Activ e BACTRIM DS 800-160 MG TABS 1 po BID x 7 days 5 SULFAMETHOXAZOLE-TRIMETHOPRIM 42331543468 No Longer Active Abdirahman Rios MD Active ENDOCET 10-325 MG TABS 1 q 6 hr prn OXYCODONE-ACETAMINOPHEN 49411681617 No Longer Active Abdirahman Rios MD Active IBUPROFEN 800 MG TABS 1 tid prn IBUPROFEN 947867 51876 No Longer Active Abdirahman Rios MD Active BACTRIM DS 800-160 MG TABS by mouth twice a day 11/05 SULFAMETHOXAZOLE-TRIMETHOPRIM 13325804147 No Longer Active Good Julian MD Active HYDROCODONE-ACETAMINOPHEN 7.5-325 MG TABS 1 four times a day as needed for pain HYDROCODONE-ACETAMINOPHEN 66370538071 No Longer Activ e Good Julian MD Active KEFLEX 500 MG CAP 1 tab po tid CEPHALEXIN 884964 15824 No Longer Active Hira Moser APRN Active IBUPROFEN 800 MG TAB 1 pill three times daily as needed for pain IBUPROFEN 33790459388 No Longer Active Kalpesh Dong MD Active PROMETHAZINE-CODEINE 6.25-10 MG/5ML SYRP 1 tsp every 6 hrs prn c ou PROMETHAZINE-CODEINE 94837260467 No Longer Active Kalpesh Carr Active ALPRAZOLAM 0.5 MG TABS 1 PO bid PRN ALPRAZOLAM 850429 72511 Active Edilberto Marino DO Active HYDROCODONE-ACETAMINOPHEN 5-325 MG TABS 1 tab by mouth every 6 hours as needed HYDROCODONE-ACETAMINOPHEN 91531511154 No Longer Activ e Shola MCGILL Active CEPHALEXIN 500 MG CAPS 1 PO bid x 7 days CEPHAL EXIN 31927293956 No Longer Active Shola MCGILL Active BACTRIM DS 800-160 MG TAB 1 tab by mouth twice daily 2 TRIMETHOPRIM-SULFAMETHOXAZOLE 05424419426 No Longer Active Kalpesh Dong MD Active HYDROCODONE-ACETAMINOPHEN 5-325 MG TABS 1 PO tid PRN pain 5 HYDROCODONE-ACETAMINOPHEN 80864408942 No Longer Active Abhinav Galvan MD Active IMPLANON 68 MG IMPL IMPLANTED IN LEFT ARM ETONO GESTREL 81250167512 No Longer Active 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 VICE PRESIDENT [employer] Active AMOXICILLIN 500 MG TABS 2 tabs PO bid x 10 d AM OXICILLIN 01037342482 No Longer Active Kalpesh Dong MD Active LEVAQUIN 500 MG TABS 1 PO q day x 7 days LEVOFL OXACIN 09313502162 No Longer Active Shola MCGILL Active PROAIR HFA 108 (90 BASE) MCG/ACT AERS 2 puff q 4-6 hrs PRN ALBUTEROL SULFATE 35421335389 Active Edilberto Marino DO Active FIORICET 50-325-40 MG TABS 2 PO q 8 hrs PRN FOSTER [id number] Active Shola MCGILL Active AMITRIPTYLINE HCL 25 MG TAB 1 tab by mouth daily 60 minutes before bedtime AMITRIPTYLINE HCL 27658154181 No Longer Active Shola MCGILL Active LORTAB 5 5-500 MG TABS 1/2 to 1 tablet by mouth go ry 6 hours as needed for pain HYDROCODONE-ACETAMINOPHEN 52715735769 No Longer Active Shola MCGILL Active CEPHALEXIN 500 MG TABS Take one by mouth four times daily, morning, noon, early evening and bedtime. CEPHALEXIN 88040987220 No Long er Active Hira Joyjanee ANDRADEN Active TYLENOL/CODEINE #3 300-30 MG TAB 1-2 po q6hr PRN Pain ACETAMINOPHEN-CODEINE 38370769217 No Longer Active Edilberto Marino DO Active PRISTIQ 50 MG [id number] 1 po qd DESVENLAFAXI NE SUCCINATE 24545854819 No Longer Active Edilberto Marino DO Active PENICILLIN V POTASSIUM 500 MG TAB 1 four times a day 2 PENICILLIN V POTASSIUM 07483231409 No Longer Active Edilberto Marino DO Active DOXYCYCLINE HYCLATE 100 MG CAPS Take one (1) tablet by mouth twice a day DOXYCYCLINE HYCLATE 06031503091 No Longer Active Ronnie Galvan MD Active HYDROCODONE-ACETAMINOPHEN 5-325 MG TABS 1 po q 6hr PRN Pain 2011 HYDROCODONE-ACETAMINOPHEN 22725669913 No Longer Active Patri joan Perez RN Active BACTRIM DS 800-160 MG TAB 1 tab by mouth twice daily 2 TRIMETHOPRIM-SULFAMETHOXAZOLE 16383185857 No Longer Active Kalpesh Dong MD Active LORTAB 5 5-500 MG TABS 1/2 to 1 tablet by mouth go ry 4 hours as needed for pain HYDROCODONE-ACETAMINOPHEN 45366303918 No Longer Active Kalpesh Dong MD Active GENERESS FE 0.8-25 MG-MCG CHEW Take one by mouth daily NORETHIN-ETH ESTRADIOL-FE 42354425933 No Longer Active Kalpesh Dong MD Active HYDROCODONE-ACETAMINOPHEN 7.5-500 MG TABS 1-2 every 4 hours as needed HYDROCODONE-ACETAMINOPHEN 09862573079 No Longer Activ e Kalpesh Dong MD Active FERROUS SULFATE 325 (65 FE) MG TABS 1 tablet by mouth twice yung y FERROUS SULFATE 65398658129 No Longer Active Kalpesh Dong MD Active IBUPROFEN 600 MG TAB 1 po q6-8hr PRN IBUPROFEN 17166561212 No Longer Active Kalpesh Dong MD Active SPIRONOLACTONE 25 MG TAB 1 tablet by mouth daily 01/22 SPIRONOLACTONE 16097667523 No Longer Active Kalpesh Dong MD Acti ve HYDROCODONE-ACETAMINOPHEN 7.5-325 MG TABS 1 po QID PRN Pain 2011 HYDROCODONE-ACETAMINOPHEN 45340304404 No Longer Active Kalpesh Dong MD Active CLINDAMYCIN HCL 300 MG CAPS 1 po q6hr x 7 days CLINDAMYCIN HCL 76906858799 No Longer Active Edilberto Marino DO Active PREDNISONE 20 MG TAB 2 tabs daily for 4 days, 1 t ab daily for 4 days, 1/2 tab daily for 4 days PREDNISONE 86839293158 No Longer Active Edilberto Marino DO Active PERCOCET 5-325 MG TABS 1 tablet by mouth every 6 hours as ne eded for pain OXYCODONE-ACETAMINOPHEN 18719024374 No Longer Active Abdirahman Rios MD Active VITAMINS TABS Take one by mouth daily MV & MIN W/FE-FA TABS 89228253466 No Longer Active Abdirahman Rios MD Active LUIS 3-0.02 MG TABS 1 tablet by mouth daily as directed DROSPIRENONE-ETHINYL ESTRADIOL 62562541745 No Longer Active Abdirahman Rios MD Active LORATADINE 10 MG TABS 1 tablet by mouth daily L ORATADINE 29858887069 No Longer Active Kalpesh Dong MD Active HYDROCODONE-ACETAMINOPHEN 5-325 MG TABS 1 po q 6hr PRN Pain 2010 HYDROCODONE-ACETAMINOPHEN 72131632759 No Longer Active Edilberto Marino DO Active BACTRIM DS 800-160 MG TAB 1 tab by mouth twice daily 2 TRIMETHOPRIM-SULFAMETHOXAZOLE 92968707244 No Longer Active Abdirahman Rios MD Active 28-0.8 MG TABS Take one by mouth daily 09/20 VIT-FE FUMARATE-FA 47254145251 No Longer Active Abdirahman Rios MD Active CIPRO 500 MG TAB 1 tablet by mouth twice daily CIPROFLOXACIN HCL 91713537970 No Longer Active Abdirahman Rios MD Active BENADRYL 25 MG CAP 1 po q8hr PRN Congestion DIPHENHYDRAMINE HCL 36931503369 No Longer Active Abdirahman Rios MD Active ZOLOFT 50 MG TAB 1 po qd SERTRALINE HCL 311590 12004 No Longer Active Abdirahman Rios MD Active AMOXICILLIN 875 MG TABS 1 tab by mouth twice daily 201 08/09/13 AMOXICILLIN 53003423301 No Longer Active Abdirahman Rios MD Activ e AMOXICILLIN 875 MG TABS 1 tab by mouth twice daily 201 07/19/27 AMOXICILLIN 50915036353 No Longer Active Abdirahman Rios MD Activ e BACTRIM DS 800-160 MG TAB 2 tab by mouth twice daily 2 TRIMETHOPRIM-SULFAMETHOXAZOLE 50009510891 No Longer Active Abdirahman Rios MD Active KEFLEX 500 MG CAP 1 po tid x 10 days CEPHALEXIN 42539042185 No Longer Active Abdirahman Rios MD Active AMOXICILLIN 875 MG TABS 1 tab by mouth twice daily 201 07/18/07 AMOXICILLIN 17470181289 No Longer Active Abdirahman Rios MD Activ e BACTRIM DS 800-160 MG TAB 2 tab by mouth twice daily 2 BACTRIM DS 800-160 MG TAB TRIMETHOPRIM-SULFAMETHOXAZOLE Inactive ZOLOFT 50 MG TAB 1 po qd ZOLOFT 50 MG TAB 3129 41 SERTRALINE HCL Inactive BENADRYL 25 MG CAP 1 po q8hr PRN Congestion BENADRYL 25 MG CAP 6270725 DIPHENHYDRAMINE HCL Inactive 28-0.8 MG TABS Take one by mouth daily 09/20 28-0.8 MG TABS VIT-FE FUMARATE-FA Inactive HYDROCODONE-ACETAMINOPHEN 5-325 MG TABS 1 po q 6hr PRN Pain 2010 HYDROCODONE-ACETAMINOPHEN 5-325 MG TABS 837555 HYDROCODONE-ACETAMINOPHEN Inactive LORATADINE 10 MG TABS 1 tablet by mouth daily LORATADINE 10 MG TABS 543402 LORATADINE Inactive LUIS 3-0.02 MG TABS 1 tablet by mouth daily as directed LUIS 3-0.02 MG TABS DROSPIRENONE-ETHINYL ESTRADIOL Inactive VITAMINS TABS Take one by mouth daily VITAMINS TABS MV & MIN W/FE-FA TABS Inactive PERCOCET 5-325 MG TABS 1 tablet by mouth every 6 hours as ne eded for pain PERCOCET 5-325 MG TABS 3204186 OXYCODONE-ACETAMIN OPHEN Inactive PREDNISONE 20 MG TAB 2 tabs daily for 4 days, 1 t ab daily for 4 days, 1/2 tab daily for 4 days PREDNISONE 20 MG TAB 512751 PREDNISON E Inactive CLINDAMYCIN HCL 300 MG CAPS 1 po q6hr x 7 days CLINDAMYCIN HCL 300 MG CAPS 720752 CLINDAMYCIN HCL Inactive HYDROCODONE-ACETAMINOPHEN 7.5-325 MG TABS 1 po QID PRN Pain 2011 HYDROCODONE-ACETAMINOPHEN 7.5-325 MG TABS 718333 HYDROCODONE-ACETAMINOPHEN Inactive SPIRONOLACTONE 25 MG TAB 1 tablet by mouth daily 01/22 SPIRONOLACTONE 25 MG TAB 071466 SPIRONOLACTONE Inactive IBUPROFEN 600 MG TAB 1 po q6-8hr PRN IBUPROFEN 600 MG TAB 831517 IBUPROFEN Inactive FERROUS SULFATE 325 (65 FE) MG TABS 1 tablet by mouth twice yung y FERROUS SULFATE 325 (65 FE) MG TABS 891259 FERROUS SULF ATE Inactive HYDROCODONE-ACETAMINOPHEN 7.5-500 MG [...] PRN Pain 2011 HYDROCODONE-ACETAMINOPHEN 5-325 MG TABS 149081 HYDROCODONE-ACETAMINOPHEN Inactive DOXYCYCLINE HYCLATE 100 MG CAPS Take one (1) tablet by mouth twice a day DOXYCYCLINE HYCLATE 100 MG CAPS 905350 DOXYCYCLINE HYCLATE Inactive PENICILLIN V POTASSIUM 500 MG TAB 1 four times a day 2 PENICILLIN V POTASSIUM 500 MG TAB 843706 PENICILLIN V POTASSIUM [place] PRISTIQ 50 MG [id number] 1 po qd PRISTIQ 50 MG [id number] DESVENLAFAXINE SUCCINATE Inactive TYLENOL/CODEINE #3 300-30 MG TAB 1-2 po q6hr PRN Pain TYLENOL/CODEINE #3 300-30 MG TAB 281325 ACETAMINOPHEN-CODEINE Inact krishna CEPHALEXIN 500 MG TABS Take one by mouth four times daily, morning, noon, early evening and bedtime. CEPHALEXIN 500 MG TABS 382628 CEPHALEXIN Inactive LORTAB 5 5-500 MG TABS 1/2 to 1 tablet by mouth go ry 6 hours as needed for pain LORTAB 5 5-500 MG TABS HYDROCODONE-A CETAMINOPHEN Inactive AMITRIPTYLINE HCL 25 MG TAB 1 tab by mouth daily 60 minutes before bedtime AMITRIPTYLINE HCL 25 MG TAB 669138 AMITRIPTYLINE HCL Inactive AMOXICILLIN 500 MG TABS 2 tabs PO bid x 10 d 7 AMOXICILLIN 500 MG TABS 429922 AMOXICILLIN Inactive IMPLANON 68 MG IMPL IMPLANTED IN LEFT ARM IMPLANON 68 MG IMPL ETONOGESTREL Inactive HYDROCODONE-ACETAMINOPHEN 5-325 MG TABS 1 PO tid PRN pain 5 HYDROCODONE-ACETAMINOPHEN 5-325 MG TABS 562251 HYDROCODONE-ACETAMIN OPHEN Inactive BACTRIM DS 800-160 MG TAB 1 tab by mouth twice daily 2 BACTRIM DS 800-160 MG TAB TRIMETHOPRIM-SULFAMETHOXAZOLE Inac tive CEPHALEXIN 500 MG CAPS 1 PO bid x 7 days CEPHALEXIN 500 MG CAPS 614256 CEPHALEXIN Inactive HYDROCODONE-ACETAMINOPHEN 5-325 MG TABS 1 tab by mouth every 6 hours as needed HYDROCODONE-ACETAMINOPHEN 5-325 MG TABS 047985 HYDROCODONE-ACETAMINOPHEN Inactive PROMETHAZINE-CODEINE 6.25-10 MG/5ML SYRP 1 tsp every 6 hrs prn c ough PROMETHAZINE-CODEINE 6.25-10 MG/5ML SYRP 087872 PROMETH AZINE-CODEINE Inactive IBUPROFEN 800 MG TAB 1 pill three times daily as needed for pain IBUPROFEN 800 MG TAB 900955 IBUPROFEN Inactive KEFLEX 500 MG CAP 1 tab po tid KEFLEX 500 MG CAP 489584 CEPHALEXIN Inactive HYDROCODONE-ACETAMINOPHEN 7.5-325 MG TABS 1 four times a day as needed for pain HYDROCODONE-ACETAMINOPHEN 7.5-325 MG TABS 173736 HYDROCODONE-ACETAMINOPHEN Inactive BACTRIM DS 800-160 MG TABS by mouth twice a day 11/05 BACTRIM DS 800-160 MG TABS SULFAMETHOXAZOLE-TRIMETHOPRIM Inactive IBUPROFEN 800 MG TABS 1 tid prn IBUPROFEN 800 MG TABS 411590 IBUPROFEN Inactive ENDOCET 10-325 MG TABS 1 q 6 hr prn ENDOC ET 10-325 MG TABS 0085279 OXYCODONE-ACETAMINOPHEN Inactive HYDROCODONE-ACETAMINOPHEN 7.5-325 MG TABS 1 by mouth e very 6 hours as needed for pain HYDROCODONE-ACETAMINOPHEN 7.5-325 MG TABS 335357 HYDROCODONE-ACETAMINOPHEN Inactive PERCOCET 7.5-325 MG TABS 1 PO q 8 hrs PRN pain PERCOCET 7.5-325 MG TABS 4556954 OXYCODONE-ACETAMINOPHEN Inactive LIDODERM 5 % PTCH One patch to painful area OK N. On for 12 hrs, off for 12 hrs. LIDODERM 5 % PTCH 7925750 LIDOCAINE Inactiv e PERCOCET 7.5-325 MG TABS 1 PO tid PRN pain PERCOCET 7.5- 325 MG TABS 4236670 OXYCODONE-ACETAMINOPHEN Inactive MOBIC 15 MG TABS 1 tab daily MOBIC 15 MG TABS 15 2695 MELOXICAM Inactive CYCLOBENZAPRINE HCL 10 MG TABS 1/2 - 1 tab PO tid PRN back p ain, muscle spasm CYCLOBENZAPRINE HCL 10 MG TABS 157192 CYCLOBENZA JOSEPH HCL Inactive LORATADINE 10 MG TABS 1 tablet by mouth daily LORATADINE 10 MG TABS 179050 LORATADINE Inactive HYDROCODONE-ACETAMINOPHEN 10-325 MG TABS 1 by mouth ev chaka 8 hours as needed for pain HYDROCODONE-ACETAMINOPHEN 10-325 MG TABS 565594 HYDROCODONE-ACETAMINOPHEN Inactive LC-5 LIDOCAINE 5 % CREA apply 1 time daily to affected area 2013 LC-5 LIDOCAINE 5 % CREA LIDOCAINE (ANORECTAL) In active PERCOCET 5-325 MG TAB 1 every 6 hours as needed PERCOCET 5-325 MG TAB 2915971 OXYCODONE-ACETAMINOPHEN Inactive AMOXICILLIN 875 MG TABS 1 tab by mouth twice daily 201 07/18/07 AMOXICILLIN 875 MG TABS 024488 AMOXICILLIN Inactive KEFLEX 500 MG CAP 1 po tid x 10 days KEFLEX 500 MG CAP 924943 CEPHALEXIN Inactive AMOXICILLIN 875 MG TABS 1 tab by mouth twice daily 201 07/19/27 AMOXICILLIN 875 MG TABS 610445 AMOXICILLIN Inactive AMOXICILLIN 875 MG TABS 1 tab by mouth twice daily 201 08/09/13 AMOXICILLIN 875 MG TABS 013564 AMOXICILLIN Inactive CIPRO 500 MG TAB 1 tablet by mouth twice daily CIPRO 500 MG TAB 603105 CIPROFLOXACIN HCL Inactive BACTRIM DS 800-160 MG TAB 1 tab by mouth twice daily 2 BACTRIM DS 800-160 MG TAB TRIMETHOPRIM-SULFAMETHOXAZOLE Inac tive LEVAQUIN 500 MG TABS 1 PO q day x 7 days LEVAQUIN 500 MG TABS 704814 LEVOFLOXACIN Inactive CLINDAMYCIN HCL 300 MG CAPS 1 po QID x 7 days CLINDAMYCIN HCL 300 MG CAPS 241714 CLINDAMYCIN HCL Inactive AUGMENTIN 875-125 MG TAB 1 tab by mouth twice daily with food 20 22/05/07 AUGMENTIN 875-125 MG TAB 748851 AMOXICILLIN-POT [place]A [place] Inactive DIFLUCAN 150 MG TAB 1 qODay x 2 doses DIFLUCAN 150 MG TAB 634270 FLUCONAZOLE Inactive Advance Directives Directive Description Start Date PERMISSION TO SHARE Immunizations Vaccine Administration Date Value Standard Alf cription Seasonal influenza vaccine, injectable, containing preservative, for > 3 years old (Afluria, FluLaval, Fluzone, Fluvirin, Fluarix, Agriflu(>= 18 yo)) Fluzone (>3 yrs.) [[id number]] Influenza, seasonal, inject able Seasonal influenza vaccine, injectable, preservative free, for > 3 years old (Afluria, FluLaval, Fluzone, Fluvirin, Fluarix, Agriflu(>= 18 yo)) Fluzone preservative free (>3 yrs.) [[id number]] Influenza, seasonal, injectable, preservative free Seasonal influenza vaccine, injectable, containing preservative, for > 3 years old (Afluria, FluLaval, Fluzone, Fluvirin, Fluarix, Agriflu(>= 18 yo)) Fluzone (>3 yrs.) [[id number]] Influenza, seasonal, inject able Seasonal influenza vaccine, injectable, containing preservative, for > 3 years old (Afluria, FluLaval, Fluzone, Fluvirin, Fluarix, Agriflu(>= 18 yo)) Fluzone (>3 yrs.) [[id number]] Influenza, seasonal, inject able dT (Diphtheria and [...] ... - Chemistry sodium, serum 140 mmol/L 187-231 6386/02/24 potassium, serum 4.3 mmol/L 3.5-5.2 chloride, serum [...] 4.3-6.0 Lab Report: T3, TOTAL, INSULIN - Title Officer ry triiodothyronine (T3), serum 78 ng/dL 76-181 Office Visit: low blood sugars - Chemis try cholesterol, target level 200 mg/dL triglyceride, target level 200 mg/dL HDL cholesterol, serum, target level 35 mg/dL LDL target level 100 mg/dL Encounters Code Encounter Date Provider Facility CPT-34504 Level 2 Est. Patient 16:57:09 BRONZE PLATER Kalpesh goins MD [facility] CPT-21840 Level 3 Est. Patient 14:03:08 BRONZE PLATER Abdirahman Rios MD [facility] CPT-34998 Level 3 Est. Patient 18:12:34 CDT Shola Wright [facility] CPT-11080 Level 3 Est. Patient 19:34:46 CDT Shola Wright [facility] CPT-70823 Level 3 Est. Patient 14:19:37 CDT Abdirahman Rios MD [facility] CPT-14445 Level 3 Est. Patient 14:11:58 CDT Kalpesh goins MD [facility] CPT-86516 Level 3 Est. Patient 16:50:00 CDT Michelle MERCADO [facility] CPT-94505 Level 3 Est. Patient 17:11:32 BRONZE PLATER Brandie bates MD PhD [facility] CPT-52506 Level 3 Est. Patient 16:31:47 BRONZE PLATER Shola Wright [facility] CPT-69871 Level 3 Est. Patient 17:51:10 BRONZE PLATER Abhinav Galvan MD [facility] CPT-47749 Level 4 Est. Patient 12:54:56 BRONZE PLATER Kalpesh goins MD [facility]-19676 Level 4 Est. Patient 12:53:56 BRONZE PLATER Kalpesh goins MD [facility] CPT-39282 Level 3 Est. Patient 17:56:58 CDT Shola Houghsabi [facility] CPT-71926 Level 3 Est. Patient 14:26:20 CDT Janak Dominguez [facility] CPT-02679 Level 3 Est. Patient 09:38:41 CDT Shola Wright [facility] CPT-40571 Level 3 Est. Patient 14:45:[address] [facility] CPT-82030 Level 3 Est. Patient 10:51:33 CDT Hira muniz [facility] CPT-74023 Level 3 Est. Patient 11:57:55 BRONZE PLATER Shola Wright [facility] CPT-97395 Level 3 Est. Patient 09:53:33 BRONZE PLATER Edilberto tiwari [facility] CPT-07875 Level 3 Est. Patient 14:42:54 BRONZE PLATER Abhinav Galvan MD [facility]-10491 Level 3 Est. Patient 15:10:[address] [facility] CPT-55392 Level 3 Est. Patient 15:20:20 CDT Theo dennis MD [facility] CPT-28433 Level 2 Est. Patient 14:08:57 CDT Kalpesh goins MD [facility] CPT-95682 Level 3 Est. Patient 13:56:19 CDT Abdirahman Rios MD [facility] CPT-57597 Level 3 Est. Patient 13:59:37 CDT Abdirahman Rios MD [facility] CPT-90468 Level 2 Est. Patient 14:44:59 CDT Kalpesh goins MD [facility] CPT-92088 Level 3 Est. Patient 06:06:23 CDT Edilberto tiwari DO [facility] CPT-93686 Level 3 Est. Patient 15:23:54 CDT Abdirahman Rios MD [facility] CPT-24784 Level 3 Est. Patient 15:43:49 CDT Abdirahman Rios MD [facility] CPT-13203 Level 3 Est. Patient 12:46:47 BRONZE PLATER Abdirahman Rios MD [facility] CPT-53479 Level 3 Est. Patient 08:13:35 BRONZE PLATER Abdirahman Rios MD [facility] CPT-45817 Level 2 Est. Patient 09:36:42 BRONZE PLATER Abdirahman Rios MD [facility] CPT-81255 Level 3 Est. Patient 10:56:43 CDT Abdirahman Rios MD [facility] CPT-98437 Level 3 Est. Patient 18:24:52 CDT Abdirahman Rios MD [facility] CPT-48048 Level 3 Est. Patient 13:27:22 CDT Abdirahman Rios MD [facility] Procedures Code Procedure Name Date Entry Date Standard Desc ription CPT-18514 Postop F/U Visit 08:19:08 BRONZE PLATER CPT-94607 Immunization Single Admin 16:41:53 CDT 2013 CPT-78122 Fluzone Quadrivalent Intramuscular Suspe nsion 0.5 ML 16:41:53 CDT CPT-OV Office Visit 16:39:18 CDT CPT-OV Office Visit 16:16:36 CDT CPT-OV Office Visit 15:34:48 CDT CPT-63048 Postop F/U Visit 14:50:12 CDT CPT-81717 Postop F/U Visit 14:41:10 CDT CPT-80746 Venipuncture Draw Fee 11:38:04 BRONZE PLATER CPT-43866 Postop F/U Visit 19:02:59 BRONZE PLATER CPT-54272 Postop F/U Visit 12:04:54 BRONZE PLATER CPT-10035 Administration single or combination vac cine inc oral 15:56:43 CDT CPT-46316 Influenza split virus > age 3 15:56:43 CDT CPT-67818 Hand comp min 3V 14:25:19 CDT CPT-60351 Postop F/U Visit 21:40:51 CDT CPT-12282 Postop F/U Visit 10:58:43 CDT CPT-64265 Administration single or combination vac cine inc oral 12:33:54 BRONZE PLATER CPT-41641 Influenza Preservative Free split virus >age 3 12:33:54 BRONZE PLATER CPT-17208 Administration single or combination vac cine inc oral 09:30:51 CDT CPT-88891 Influenza split virus > age 3 09:30:51 CDT CPT-69383 Postop F/U Visit 15:14:53 CDT CPT-20425 Postop F/U Visit 13:50:14 CDT CPT-68960 Postop F/U Visit 13:34:52 CDT CPT-OV Office Visit 16:55:03 CDT CPT-29944 [place] of cervix w bx ECC 13:32:50 CDT 10/19 CPT-J1885 Toradol 60 mg (Ketorolac) 15:31:59 CDT 2011 CPT-J1885 Toradol 60 mg (Ketorolac) 15:23:54 CDT 2011 CPT-87751 Visit 11:34:37 BRONZE PLATER CPT-86783 Visit 10:52:39 BRONZE PLATER CPT-94458 Visit 10:12:02 BRONZE PLATER CPT-66160 Visit 11:22:43 BRONZE PLATER CPT-62476 Visit 11:24:12 BRONZE PLATER CPT-26410 Visit 10:47:05 BRONZE PLATER CPT-OV Office Visit 10:26:16 BRONZE PLATER CPT-OV Office Visit 15:34:31 BRONZE PLATER CPT-63185 Visit 10:42:08 BRONZE PLATER CPT-72148 Visit 10:52:45 BRONZE PLATER CPT-000 Give Appropriate Flu Vaccine 16:56:41 CDT 2 CPT-26188 Administration single or combination vac cine inc oral 10:33:21 CDT CPT-19018 Influenza split virus > age 3 10:33:21 CDT CPT-58655 Visit 13:23:09 CDT CPT-52332 Visit 18:24:52 CDT CPT-12276 Sono OB comp > 14 weeks 12:07:49 CDT 04/07
--- OUTSIDE RECORDS SUMMARY | 2020-01-18 17:09 | XMS REPORT | Clinical Summary ---
Author Author Admin, Jeri Rashid Organization [facility] Address Unknown Phone Allergies, Adverse Reactions, [...] by mouth twice a day 11/05 SULFAMETHOXAZOLE-TRIMETHOPRIM [id number] No Longer Active Good Julian MD Active IBUPROFEN 800 MG TABS 1 tid prn IBUPROFEN 22498590096 Active Good Julian MD Active ENDOCET 10-325 MG TABS 1 q 6 hr prn OXYCODONE-A CETAMINOPHEN 18067696180 Active Shola MCGILL Active HYDROCODONE-ACETAMINOPHEN 7.5-325 MG TABS 1 four times a day as needed for pain HYDROCODONE-ACETAMINOPHEN 60998486608 No Longer Activ crystal Julian MD Active KEFLEX 500 MG CAP 1 tab po tid CEPHALEXIN 304565 12945 No Longer Active Hira Moser APRN Active IBUPROFEN 800 MG TAB 1 pill three times daily as needed for pain IBUPROFEN 12216223984 No Longer Active Kalpesh Dong MD Active PROMETHAZINE-CODEINE 6.25-10 MG/5ML SYRP 1 tsp every 6 hrs prn c ough PROMETHAZINE-CODEINE 28596546498 No Longer Active Kalpesh Carr Active ALPRAZOLAM 0.5 MG TABS 1 PO bid PRN ALPRAZOLAM 354890 79861 Active Shola MCGILL Active HYDROCODONE-ACETAMINOPHEN 5-325 MG TABS 1 tab by mouth every 6 hours as needed HYDROCODONE-ACETAMINOPHEN 89483891830 No Longer Activ e Shola MCGILL Active CEPHALEXIN 500 MG CAPS 1 PO bid x 7 days CEPHAL EXIN 77862090119 No Longer Active Shola MCGILL Active BACTRIM DS 800-160 MG TAB 1 tab by mouth twice daily 2 TRIMETHOPRIM-SULFAMETHOXAZOLE 62883336010 No Longer Active Kalpesh Dong MD Active HYDROCODONE-ACETAMINOPHEN 5-325 MG TABS 1 PO tid PRN pain 5 HYDROCODONE-ACETAMINOPHEN 65082175857 No Longer Active Abhinav Galvan MD Active IMPLANON 68 MG IMPL IMPLANTED IN LEFT ARM ETONO GESTREL 64160550345 No Longer Active 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 Active AMOXICILLIN 500 MG TABS 2 tabs PO bid x 10 d AM OXICILLIN 52705459790 No Longer Active Kalpesh Dong MD Active LEVAQUIN 500 MG TABS 1 PO q day x 7 days LEVOFL OXACIN 08898209632 No Longer Active Shola MCGILL Active PROAIR HFA 108 (90 BASE) MCG/ACT AERS 2 puff q 4-6 hrs PRN ALBUTEROL SULFATE 53125022973 Active Shola MCGILL Acti ve FIORICET 50-325-40 MG TABS 2 PO q 8 hrs PRN FOSTER [id number] 68850445591 Active Abdirahman Rios MD Active AMITRIPTYLINE HCL 25 MG TAB 1 tab by mouth daily 60 minutes before bedtime AMITRIPTYLINE HCL 66356375054 No Longer Active Shola MCGILL Active LORTAB 5 5-500 MG TABS 1/2 to 1 tablet by mouth go ry 6 hours as needed for pain HYDROCODONE-ACETAMINOPHEN 09233062826 No Longer Active Shola MCGILL Active CEPHALEXIN 500 MG TABS Take one by mouth four times daily, morning, noon, early evening and bedtime. 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 TYLENOL/CODEINE #3 300-30 MG TAB 1-2 po q6hr PRN Pain ACETAMINOPHEN-CODEINE 16690831221 No Longer Active Edilberto Marino DO Active PRISTIQ 50 MG [id number] 1 po qd DESVENLAFAXI NE SUCCINATE 72134639982 No Longer Active Edilberto Marino DO Active PENICILLIN V POTASSIUM 500 MG TAB 1 four times a day 2 PENICILLIN V POTASSIUM 07785799614 No Longer Active Edilberto Marino DO Active DOXYCYCLINE HYCLATE 100 MG CAPS Take one (1) tablet by mouth twice a day DOXYCYCLINE HYCLATE 85852567939 No Longer Active Ronnie Galvan MD Active HYDROCODONE-ACETAMINOPHEN 5-325 MG TABS 1 po q 6hr PRN Pain 2011 HYDROCODONE-ACETAMINOPHEN 74590725075 No Longer Active Patri joan Perez RN Active BACTRIM DS 800-160 MG TAB 1 tab by mouth twice daily 2 TRIMETHOPRIM-SULFAMETHOXAZOLE 34833998602 No Longer Active Kalpesh Dong MD Active LORTAB 5 5-500 MG TABS 1/2 to 1 tablet by mouth go ry 4 hours as needed for pain HYDROCODONE-ACETAMINOPHEN 75281759021 No Longer Active Kalpesh Dong MD Active GENERESS FE 0.8-25 MG-MCG CHEW Take one by mouth daily NORETHIN-ETH ESTRADIOL-FE 84355192703 No Longer Active Kalpesh Dong MD Active HYDROCODONE-ACETAMINOPHEN 7.5-500 MG TABS 1-2 every 4 hours as needed HYDROCODONE-ACETAMINOPHEN 22464017931 No Longer Activ e Kalpesh Dong MD Active FERROUS SULFATE 325 (65 FE) MG TABS 1 tablet by mouth twice yung y FERROUS SULFATE 78921256216 No Longer Active Kalpesh Dong MD Active IBUPROFEN 600 MG TAB 1 po q6-8hr PRN IBUPROFEN 29780623409 No Longer Active Kalpesh Dong MD Active SPIRONOLACTONE 25 MG TAB 1 tablet by mouth daily 01/22 SPIRONOLACTONE 06164002059 No Longer Active Kalpesh Dong MD Acti ve HYDROCODONE-ACETAMINOPHEN 7.5-325 MG TABS 1 po QID PRN Pain 2011 HYDROCODONE-ACETAMINOPHEN 31168966389 No Longer Active Kalpesh Dong MD Active CLINDAMYCIN HCL 300 MG CAPS 1 po q6hr x 7 days CLINDAMYCIN HCL 62038041028 No Longer Active Edilberto Marino DO Active PREDNISONE 20 MG TAB 2 tabs daily for 4 days, 1 t ab daily for 4 days, 1/2 tab daily for 4 days PREDNISONE 99822015329 No Longer Active Edilberto Marino DO Active PERCOCET 5-325 MG TABS 1 tablet by mouth every 6 hours as ne eded for pain OXYCODONE-ACETAMINOPHEN 54938638292 No Longer Active Abdirahman Rios MD Active VITAMINS TABS Take one by mouth daily MV & MIN W/FE-FA TABS 42715903150 No Longer Active Abdirahman Rios MD Active LUIS 3-0.02 MG TABS 1 tablet by mouth daily as directed DROSPIRENONE-ETHINYL ESTRADIOL 74428279253 No Longer Active Abdirahman Rios MD Active LORATADINE 10 MG TABS 1 tablet by mouth daily L ORATADINE 34945724722 No Longer Active Kalpesh Dong MD Active HYDROCODONE-ACETAMINOPHEN 5-325 MG TABS 1 po q 6hr PRN Pain 2010 HYDROCODONE-ACETAMINOPHEN 40284810724 No Longer Active Edilberto Marino DO Active BACTRIM DS 800-160 MG TAB 1 tab by mouth twice daily 2 TRIMETHOPRIM-SULFAMETHOXAZOLE 79085633400 No Longer Active Abdirahman Rios MD Active 28-0.8 MG TABS Take one by mouth daily 09/20 VIT-FE FUMARATE-FA 94160733640 No Longer Active Abdirahman Rios MD Active CIPRO 500 MG TAB 1 tablet by mouth twice daily CIPROFLOXACIN HCL 35954590390 No Longer Active Abdirahman Rios MD Active BENADRYL 25 MG CAP 1 po q8hr PRN Congestion DIPHENHYDRAMINE HCL 77799101154 No Longer Active Abdirahman Rios MD Active ZOLOFT 50 MG TAB 1 po qd SERTRALINE HCL 086342 96993 No Longer Active Abdirahman Rios MD Active AMOXICILLIN 875 MG TABS 1 tab by mouth twice daily 201 08/09/13 AMOXICILLIN 20050927178 No Longer Active Abdirahman Rios MD Activ e AMOXICILLIN 875 MG TABS 1 tab by mouth twice daily 201 07/19/27 AMOXICILLIN 28980862283 No Longer Active Abdirahman Rios MD Activ e BACTRIM DS 800-160 MG TAB 2 tab by mouth twice daily 2 TRIMETHOPRIM-SULFAMETHOXAZOLE 05581234058 No Longer Active Abdirahman Rios MD Active KEFLEX 500 MG CAP 1 po tid x 10 days CEPHALEXIN 23739056153 No Longer Active Abdirahman Rios MD Active AMOXICILLIN 875 MG TABS 1 tab by mouth twice daily 201 07/18/07 AMOXICILLIN 72805778245 No Longer Active Abdirahman Rios MD Activ e BACTRIM DS 800-160 MG TAB 2 tab by mouth twice daily 2 BACTRIM DS 800-160 MG TAB TRIMETHOPRIM-SULFAMETHOXAZOLE Inactive ZOLOFT 50 MG TAB 1 po qd ZOLOFT 50 MG TAB 3129 41 SERTRALINE HCL Inactive BENADRYL 25 MG CAP 1 po q8hr PRN Congestion BENADRYL 25 MG CAP 4717299 DIPHENHYDRAMINE HCL Inactive 28-0.8 MG TABS Take one by mouth daily 09/20 28-0.8 MG TABS VIT-FE FUMARATE-FA Inactive HYDROCODONE-ACETAMINOPHEN 5-325 MG TABS 1 po q 6hr PRN Pain 2010 HYDROCODONE-ACETAMINOPHEN 5-325 MG TABS 097116 HYDROCODONE-ACETAMINOPHEN Inactive LORATADINE 10 MG TABS 1 tablet by mouth daily LORATADINE 10 MG TABS 016225 LORATADINE Inactive LUIS 3-0.02 MG TABS 1 tablet by mouth daily as directed LUIS 3-0.02 MG TABS DROSPIRENONE-ETHINYL ESTRADIOL Inactive VITAMINS TABS Take one by mouth daily VITAMINS TABS MV & MIN W/FE-FA TABS Inactive PERCOCET 5-325 MG TABS 1 tablet by mouth every 6 hours as ne eded for pain PERCOCET 5-325 MG TABS 3035068 OXYCODONE-ACETAMIN OPHEN Inactive PREDNISONE 20 MG TAB 2 tabs daily for 4 days, 1 t ab daily for 4 days, 1/2 tab daily for 4 days PREDNISONE 20 MG TAB 145741 PREDNISON E Inactive CLINDAMYCIN HCL 300 MG CAPS 1 po q6hr x 7 days CLINDAMYCIN HCL 300 MG CAPS 743619 CLINDAMYCIN HCL Inactive HYDROCODONE-ACETAMINOPHEN 7.5-325 MG TABS 1 po QID PRN Pain 2011 HYDROCODONE-ACETAMINOPHEN 7.5-325 MG TABS 039562 HYDROCODONE-ACETAMINOPHEN Inactive SPIRONOLACTONE 25 MG TAB 1 tablet by mouth daily 01/22 SPIRONOLACTONE 25 MG TAB 550721 SPIRONOLACTONE Inactive IBUPROFEN 600 MG TAB 1 po q6-8hr PRN IBUPROFEN 600 MG TAB 935596 IBUPROFEN Inactive FERROUS SULFATE 325 (65 FE) MG TABS 1 tablet by mouth twice yung y FERROUS SULFATE 325 (65 FE) MG TABS 412408 FERROUS SULF ATE Inactive HYDROCODONE-ACETAMINOPHEN 7.5-500 MG TABS 1-2 every 4 hours as needed HYDROCODONE-ACETAMINOPHEN 7.5-500 MG TABS 324847 HYDROCODONE-ACETAMINOPHEN Inactive GENERESS FE 0.8-25 MG-MCG CHEW [...] PRN Pain 2011 HYDROCODONE-ACETAMINOPHEN 5-325 MG TABS 014212 HYDROCODONE-ACETAMINOPHEN Inactive DOXYCYCLINE HYCLATE 100 MG CAPS Take one (1) tablet by mouth twice a day DOXYCYCLINE HYCLATE 100 MG CAPS 160366 DOXYCYCLINE HYCLATE Inactive PENICILLIN V POTASSIUM 500 MG TAB 1 four times a day 2 PENICILLIN V POTASSIUM 500 MG TAB 983255 PENICILLIN V POTASSIUM [place] ct[place] PRISTIQ 50 MG [id number] 1 po qd PRISTIQ 50 MG [id number] DESVENLAFAXINE SUCCINATE Inactive TYLENOL/CODEINE #3 300-30 MG TAB 1-2 po q6hr PRN Pain TYLENOL/CODEINE #3 300-30 MG TAB 005229 ACETAMINOPHEN-CODEINE Inact krishna CEPHALEXIN 500 MG TABS Take one by mouth four times daily, morning, noon, early evening and bedtime. CEPHALEXIN 500 MG TABS 425985 CEPHALEXIN Inactive LORTAB 5 5-500 MG TABS 1/2 to 1 tablet by mouth go ry 6 hours as needed for pain LORTAB 5 5-500 MG TABS HYDROCODONE-A CETAMINOPHEN Inactive AMITRIPTYLINE HCL 25 MG TAB 1 tab by mouth daily 60 minutes before bedtime AMITRIPTYLINE HCL 25 MG TAB 289605 AMITRIPTYLINE HCL Inactive AMOXICILLIN 500 MG TABS 2 tabs PO bid x 10 d 7 AMOXICILLIN 500 MG TABS 418818 AMOXICILLIN Inactive IMPLANON 68 MG IMPL IMPLANTED IN LEFT ARM IMPLANON 68 MG IMPL ETONOGESTREL Inactive HYDROCODONE-ACETAMINOPHEN 5-325 MG TABS 1 PO tid PRN pain 5 HYDROCODONE-ACETAMINOPHEN 5-325 MG TABS 282291 HYDROCODONE-ACETAMIN OPHEN Inactive BACTRIM DS 800-160 MG TAB 1 tab by mouth twice daily 2 BACTRIM DS 800-160 MG TAB TRIMETHOPRIM-SULFAMETHOXAZOLE Inac tive CEPHALEXIN 500 MG CAPS 1 PO bid x 7 days CEPHALEXIN 500 MG CAPS 932041 CEPHALEXIN Inactive HYDROCODONE-ACETAMINOPHEN 5-325 MG TABS 1 tab by mouth every 6 hours as needed HYDROCODONE-ACETAMINOPHEN 5-325 MG TABS 439315 HYDROCODONE-ACETAMINOPHEN Inactive PROMETHAZINE-CODEINE 6.25-10 MG/5ML SYRP 1 tsp every 6 hrs prn c ough PROMETHAZINE-CODEINE 6.25-10 MG/5ML SYRP 817040 PROMETH AZINE-CODEINE Inactive IBUPROFEN 800 MG TAB 1 pill three times daily as needed for pain IBUPROFEN 800 MG TAB 238530 IBUPROFEN Inactive KEFLEX 500 MG CAP 1 tab po tid KEFLEX 500 MG CAP 097585 CEPHALEXIN Inactive HYDROCODONE-ACETAMINOPHEN 7.5-325 MG TABS 1 four times a day as needed for pain HYDROCODONE-ACETAMINOPHEN 7.5-325 MG TABS 062854 HYDROCODONE-ACETAMINOPHEN Inactive BACTRIM DS 800-160 MG TABS by mouth twice a day 11/05 BACTRIM DS 800-160 MG TABS SULFAMETHOXAZOLE-TRIMETHOPRIM Inactive AMOXICILLIN 875 MG TABS 1 tab by mouth twice daily 201 07/18/07 AMOXICILLIN 875 MG TABS 539864 AMOXICILLIN Inactive KEFLEX 500 MG CAP 1 po tid x 10 days KEFLEX 500 MG CAP 071206 CEPHALEXIN Inactive AMOXICILLIN 875 MG TABS 1 tab by mouth twice daily 201 07/19/27 AMOXICILLIN 875 MG TABS 672575 AMOXICILLIN Inactive AMOXICILLIN 875 MG TABS 1 tab by mouth twice daily 08/09/13 AMOXICILLIN 875 MG TABS 573076 AMOXICILLIN Inactive CIPRO 500 MG TAB 1 tablet by mouth twice daily CIPRO 500 MG TAB 659938 CIPROFLOXACIN HCL Inactive BACTRIM DS 800-160 MG TAB 1 tab by mouth twice daily 2 BACTRIM DS 800-160 MG TAB TRIMETHOPRIM-SULFAMETHOXAZOLE Inac tive LEVAQUIN 500 MG TABS 1 PO q day x 7 days LEVAQUIN 500 MG TABS 738296 LEVOFLOXACIN Inactive Advance Directives Directive Description Start Date PERMISSION TO SHARE Immunizations Vaccine Administration Date Value Standard Alf cription Seasonal influenza vaccine, injectable, containing preservative, for > 3 years old (Afluria, FluLaval, Fluzone, Fluvirin, Fluarix, Agriflu(>= 18 yo)) Fluzone (>3 yrs.) [[id number]] Influenza, seasonal, inject able Seasonal influenza vaccine, injectable, preservative free, for > 3 years old (Afluria, FluLaval, Fluzone, Fluvirin, Fluarix, Agriflu(>= 18 yo)) Fluzone preservative free (>3 yrs.) [[id number]] Influenza, seasonal, injectable, preservative free Seasonal influenza vaccine, injectable, containing preservative, for > 3 years old (Afluria, FluLaval, Fluzone, Fluvirin, Fluarix, Agriflu(>= 18 yo)) Fluzone (>3 yrs.) [[id number]] Influenza, seasonal, inject able Seasonal influenza vaccine, injectable, containing preservative, for > 3 years old (Afluria, FluLaval, Fluzone, Fluvirin, Fluarix, Agriflu(>= 18 yo)) Fluzone (>3 yrs.) [[id number]] Influenza, seasonal, inject able dT (Diphtheria and [...] mg/dL Chart Maintenance: Outside labs entered on [employer] - Hematology leukocyte count, blood 8.3 10*3/mm3 erythrocyte (RBC) count 5.2 10*6/mm3 hemoglobin, blood 14.2 g/dL hematocrit, blood 42.6 % mean corpuscular volume, RBC 82.4 fL mean corpuscular hemoglobin, RBC 27.5 pg red blood cell distribution width 12.9 % platelet count 316 10*3/mm3 Lab Report: CBC W/DIFF, Comp. Metabolic Panel, Thyroid Stimulating [place] ... - Chemistry sodium, serum 140 mmol/L 278-032 0378/02/24 potassium, serum 4.3 mmol/L 3.5-5.2 chloride, serum [...] 4.3-6.0 Lab Report: T3, TOTAL, INSULIN - Hotel Reservationist ry triiodothyronine, serum 78 ng/dL 76-181 Lab [...] mg/dL Encounters Code Encounter Date Provider Facility CPT-14968 Level 3 Est. Patient 14:11:58 CDT Kalpesh goins MD [facility] CPT-02350 Level 3 Est. Patient 16:50:00 CDT Michelle MERCADO [facility] CPT-15142 Level 3 Est. Patient 17:11:32 METAL FABRICATOR WELDER Brandie bates MD PhD [facility] CPT-15794 Level 3 Est. Patient 16:31:47 METAL FABRICATOR WELDER Shola MCGILL [facility] CPT-83055 Level 3 Est. Patient 17:51:10 METAL FABRICATOR WELDER Abhinav Galvan MD [facility] CPT-31898 Level 4 Est. Patient 12:54:56 METAL FABRICATOR WELDER Kalpesh goins MD [facility] CPT-89434 Level 4 Est. Patient 12:53:56 METAL FABRICATOR WELDER Kalpesh goins MD [facility] CPT-90436 Level 3 Est. Patient 17:56:58 CDT Shola MCGILL [facility] CPT-74045 Level 3 Est. Patient 14:26:20 CDT Janak butcher [facility] CPT-74240 Level 3 Est. Patient 09:38:41 CDT Shola Wright [facility] CPT-17208 Level 3 Est. Patient 14:45:26 CDT Edilberto tiwari [facility] CPT-33485 Level 3 Est. Patient 10:51:33 CDT Hira muniz [facility] CPT-83972 Level 3 Est. Patient 11:57:55 METAL FABRICATOR WELDER Shola Thao Adriana [facility] CPT-46139 Level 3 Est. Patient 09:53:33 METAL FABRICATOR WELDER Edilberto tiwari [facility] CPT-76158 Level 3 Est. Patient 14:42:54 METAL FABRICATOR WELDER Abhinav Galvan MD [facility] CPT-01216 Level 3 Est. Patient 15:10:02 CDT Janak butcher [facility] CPT-44286 Level 3 Est. Patient 15:20:20 CDT Theo dennis MD [facility] CPT-75785 Level 2 Est. Patient 14:08:57 CDT Kalpesh goins MD [facility] CPT-25960 Level 3 Est. Patient 13:56:19 CDT Abdirahman Rios MD [facility] CPT-34237 Level 3 Est. Patient 13:59:37 CDT Abdirahman Rios MD [facility] CPT-88870 Level 2 Est. Patient 14:44:59 CDT Kalpesh goins MD [facility]-51665 Level 3 Est. Patient 06:06:23 CDT Edilberto tiwari [facility] CPT-14240 Level 3 Est. Patient 15:23:54 CDT Abdirahman Rios MD [facility] CPT-06129 Level 3 Est. Patient 15:43:49 CDT Abdirahman Rios MD [facility] CPT-98737 Level 3 Est. Patient 12:46:47 METAL FABRICATOR WELDER Abdirahman Rios MD [facility] CPT-06168 Level 3 Est. Patient 08:13:35 METAL FABRICATOR WELDER Abdirahman Rios MD [facility] CPT-50441 Level 2 Est. Patient 09:36:42 METAL FABRICATOR WELDER Abdirahman Rios MD [facility] CPT-72320 Level 3 Est. Patient 10:56:43 CDT Abdirahman Rios MD [facility] CPT-02104 Level 3 Est. Patient 18:24:52 CDT Abdirahman Rios MD [facility] CPT-41144 Level 3 Est. Patient 13:27:22 CDT Abdirahman Rios MD [facility] Procedures Code Procedure Name Date Entry Date Standard Desc ription CPT-OV Office Visit 15:34:48 CDT CPT-88986 Postop F/U Visit 14:50:12 CDT CPT-22548 Postop F/U Visit 14:41:10 CDT CPT-77400 Venipuncture Draw Fee 11:38:04 METAL FABRICATOR WELDER CPT-09642 Postop F/U Visit 19:02:59 METAL FABRICATOR WELDER CPT-59369 Postop F/U Visit 12:04:54 METAL FABRICATOR WELDER CPT-86456 Administration single or combination vac cine inc oral 15:56:43 CDT CPT-86398 Influenza split virus > age 3 15:56:43 CDT CPT-16197 Hand comp min 3V 14:25:19 CDT CPT-70106 Postop F/U Visit 21:40:51 CDT CPT-74266 Postop F/U Visit 10:58:43 CDT CPT-68932 Administration single or combination vac cine inc oral 12:33:54 METAL FABRICATOR WELDER CPT-35722 Influenza Preservative Free split virus >age 3 12:33:54 METAL FABRICATOR WELDER CPT-12782 Administration single or combination vac cine inc oral 09:30:51 CDT CPT-14100 Influenza split virus > age 3 09:30:51 CDT CPT-58150 Postop F/U Visit 15:14:53 CDT CPT-16844 Postop F/U Visit 13:50:14 CDT CPT-48666 Postop F/U Visit 13:34:52 CDT CPT-OV Office Visit 16:55:03 CDT CPT-77523 [place] of cervix w bx ECC 13:32:50 CDT 10/19 CPT-J1885 Toradol 60 mg (Ketorolac) 15:31:59 CDT 2011 CPT-J1885 Toradol 60 mg (Ketorolac) 15:23:54 CDT 2011 CPT-85428 Visit 11:34:37 METAL FABRICATOR WELDER CPT-29376 Visit 10:52:39 METAL FABRICATOR WELDER CPT-92811 Visit 10:12:02 METAL FABRICATOR WELDER CPT-06142 Visit 11:22:43 METAL FABRICATOR WELDER CPT-52656 Visit 11:24:12 METAL FABRICATOR WELDER CPT-70531 Visit 10:47:05 METAL FABRICATOR WELDER CPT-OV Office Visit 10:26:16 METAL FABRICATOR WELDER CPT-OV Office Visit 15:34:31 METAL FABRICATOR WELDER CPT-44813 Visit 10:42:08 METAL FABRICATOR WELDER CPT-19165 Visit 10:52:45 METAL FABRICATOR WELDER CPT-000 Give Appropriate Flu Vaccine 16:56:41 CDT 2 CPT-48316 Administration single or combination vac cine inc oral 10:33:21 CDT CPT-37456 Influenza split virus > age 3 10:33:21 CDT CPT-54896 Visit 13:23:09 CDT CPT-24047 Visit 18:24:52 CDT CPT-83340 Sono OB comp > 14 weeks 12:07:49 CDT 04/07
--- OUTSIDE RECORDS SUMMARY | 2020-01-18 17:09 | XMS REPORT | Clinical Summary ---
Author Author Admin, Jeri Rashid Organization [facility] Address Unknown Phone Unavailable Allergies, Adverse Reactions, [...] Acute pharyngitis HEALTH SCREENING V70.0 Resolved Good emlchor MD Routine general medical examination at a [...] Julian MD EXAMINATION, NORMAL ICD-V24.2 Inact krishna oGod Julian MD FAMILY PLANNING ICD-V25.09 Jose M [...] Generic Name NDC Status Provider Patient Instruction LC-5 LIDOCAINE 5 % CREA apply 1 time daily to affected area LIDOCAINE (ANORECTAL) 48262641296 Active Shola MCGILL Active PERCOCET 7.5-325 MG TABS 1 PO q 8 hrs PRN pain OXYCODONE-ACETAMINOPHEN 58997601762 Active Shola MCGILL Active CLINDAMYCIN HCL 300 MG CAPS 1 po QID x 7 days CLINDAMYCIN HCL 74137440990 No Longer Active Abdirahman Rios MD Activ e HYDROCODONE-ACETAMINOPHEN 7.5-325 MG TABS 1 by mouth e very 6 hours as needed for pain HYDROCODONE-ACETAMINOPHEN 66061526147 Active Shola MCGILL Active BACTRIM DS 800-160 MG TABS 1 po BID x 7 days 5 SULFAMETHOXAZOLE-TRIMETHOPRIM 40388504778 No Longer Active Abdirahman Rios MD Active ENDOCET 10-325 MG TABS 1 q 6 hr prn OXYCODONE-ACETAMINOPHEN 89461529857 No Longer Active Abdirahman Rios MD Active IBUPROFEN 800 MG TABS 1 tid prn IBUPROFEN 642173 51905 No Longer Active Abdirahman Rios MD Active BACTRIM DS 800-160 MG TABS by mouth twice a day 11/05 SULFAMETHOXAZOLE-TRIMETHOPRIM 82945908285 No Longer Active Good Julian MD Active HYDROCODONE-ACETAMINOPHEN 7.5-325 MG TABS 1 four times a day as needed for pain HYDROCODONE-ACETAMINOPHEN 68110155546 No Longer Activ e Good Julian MD Active KEFLEX 500 MG CAP 1 tab po tid CEPHALEXIN 591525 09395 No Longer Active Jillina Frajanee PHYSICAL CHEMIST Active IBUPROFEN 800 MG TAB 1 pill three times daily as needed for pain IBUPROFEN 07799771554 No Longer Active Kalpesh Dong MD Active PROMETHAZINE-CODEINE 6.25-10 MG/5ML SYRP 1 tsp every 6 hrs prn c ough PROMETHAZINE-CODEINE 95258001403 No Longer Active Kalpesh Carr Active ALPRAZOLAM 0.5 MG TABS 1 PO bid PRN ALPRAZOLAM 696580 89308 Active Shola MCGILL Active HYDROCODONE-ACETAMINOPHEN 5-325 MG TABS 1 tab by mouth every 6 hours as needed HYDROCODONE-ACETAMINOPHEN 68761135790 No Longer Activ e Shola MCGILL Active CEPHALEXIN 500 MG CAPS 1 PO bid x 7 days CEPHAL EXIN 64241400522 No Longer Active Shola MCGILL Active BACTRIM DS 800-160 MG TAB 1 tab by mouth twice daily 2 TRIMETHOPRIM-SULFAMETHOXAZOLE 82849083013 No Longer Active Kalpesh Dong MD Active HYDROCODONE-ACETAMINOPHEN 5-325 MG TABS 1 PO tid PRN pain 5 HYDROCODONE-ACETAMINOPHEN 62631737832 No Longer Active Abhinav Galvan MD Active IMPLANON 68 MG IMPL IMPLANTED IN LEFT ARM ETONO GESTREL 84870099003 No Longer Active Hira Moser APRN Active AMOXICILLIN 500 MG TABS 2 tabs PO bid x 10 d AM OXICILLIN 55542339391 No Longer Active Kalpesh Dong MD Active LEVAQUIN 500 MG TABS 1 PO q day x 7 days LEVOFL OXACIN 52258334493 No Longer Active Shola MCGILL Active PROAIR HFA 108 (90 BASE) MCG/ACT AERS 2 puff q 4-6 hrs PRN ALBUTEROL SULFATE 04686296358 Active Shloa MCGILL Acti ve FIORICET 50-325-40 MG TABS 2 PO q 8 hrs PRN FOSTER [id number] Active Shola MCGILL Active AMITRIPTYLINE HCL 25 MG TAB 1 tab by mouth daily 60 minutes before bedtime AMITRIPTYLINE HCL 73076613696 No Longer Active Shola MCGILL Active LORTAB 5 5-500 MG TABS 1/2 to 1 tablet by mouth go ry 6 hours as needed for pain HYDROCODONE-ACETAMINOPHEN 00333860924 No Longer Active Shola MCGILL Active CEPHALEXIN 500 MG TABS Take one by mouth four times daily, morning, noon, early evening and bedtime. CEPHALEXIN 29459465012 No Long er Active Hira Moser APRN Active TYLENOL/CODEINE #3 300-30 MG TAB 1-2 po q6hr PRN Pain ACETAMINOPHEN-CODEINE 67602399261 No Longer Active Edilberto Marino DO Active PRISTIQ 50 MG [id number] 1 po qd DESVENLAFAXI NE SUCCINATE 93816182512 No Longer Active Edilberto Marino DO Active PENICILLIN V POTASSIUM 500 MG TAB 1 four times a day 2 PENICILLIN V POTASSIUM 61935573183 No Longer Active Edilberto Marino DO Active DOXYCYCLINE HYCLATE 100 MG CAPS Take one (1) tablet by mouth twice a day DOXYCYCLINE HYCLATE 08673440900 No Longer Active Ronnie Galvan MD Active HYDROCODONE-ACETAMINOPHEN 5-325 MG TABS 1 po q 6hr PRN Pain 2011 HYDROCODONE-ACETAMINOPHEN 90730023814 No Longer Active Jerson Perez RN Active BACTRIM DS 800-160 MG TAB 1 tab by mouth twice daily 2 TRIMETHOPRIM-SULFAMETHOXAZOLE 43915699294 No Longer Active Kalpesh Dong MD Active LORTAB 5 5-500 MG TABS 1/2 to 1 tablet by mouth go ry 4 hours as needed for pain HYDROCODONE-ACETAMINOPHEN 79850888421 No Longer Active Kalpesh Dong MD Active GENERESS FE 0.8-25 MG-MCG CHEW Take one by mouth daily NORETHIN-ETH ESTRADIOL-FE 32943254797 No Longer Active Kalpesh Dong MD Active HYDROCODONE-ACETAMINOPHEN 7.5-500 MG TABS 1-2 every 4 hours as needed HYDROCODONE-ACETAMINOPHEN 67147291322 No Longer Activ e Kalpesh Dong MD Active FERROUS SULFATE 325 (65 FE) MG TABS 1 tablet by mouth twice yung y FERROUS SULFATE 96515711149 No Longer Active Kalpesh Dong MD Active IBUPROFEN 600 MG TAB 1 po q6-8hr PRN IBUPROFEN 59016664875 No Longer Active Kalpesh Dong MD Active SPIRONOLACTONE 25 MG TAB 1 tablet by mouth daily 01/22 SPIRONOLACTONE 40393186553 No Longer Active Kalpesh Dong MD Acti ve HYDROCODONE-ACETAMINOPHEN 7.5-325 MG TABS 1 po QID PRN Pain 2011 HYDROCODONE-ACETAMINOPHEN 03761203880 No Longer Active Kalpesh Dong MD Active CLINDAMYCIN HCL 300 MG CAPS 1 po q6hr x 7 days CLINDAMYCIN HCL 36015300380 No Longer Active Edilberto Marino DO Active PREDNISONE 20 MG TAB 2 tabs daily for 4 days, 1 t ab daily for 4 days, 1/2 tab daily for 4 days PREDNISONE 29641075651 No Longer Active Edilberto Marino DO Active PERCOCET 5-325 MG TABS 1 tablet by mouth every 6 hours as ne eded for pain OXYCODONE-ACETAMINOPHEN 03179042918 No Longer Active Abdirahman Rios MD Active VITAMINS TABS Take one by mouth daily MV & MIN W/FE-FA TABS 85502494758 No Longer Active Abdirahman Rios MD Active LUIS 3-0.02 MG TABS 1 tablet by mouth daily as directed DROSPIRENONE-ETHINYL ESTRADIOL 99956670920 No Longer Active Abdirahman Rios MD Active LORATADINE 10 MG TABS 1 tablet by mouth daily L ORATADINE 72619270409 No Longer Active Kalpesh Dong MD Active HYDROCODONE-ACETAMINOPHEN 5-325 MG TABS 1 po q 6hr PRN Pain 2010 HYDROCODONE-ACETAMINOPHEN 29070371356 No Longer Active Edilberto Marino DO Active BACTRIM DS 800-160 MG TAB 1 tab by mouth twice daily 2 TRIMETHOPRIM-SULFAMETHOXAZOLE 37556974602 No Longer Active Abdirahman Rios MD Active 28-0.8 MG TABS Take one by mouth daily 09/20 VIT-FE FUMARATE-FA 37247399145 No Longer Active Abdirahman Rios MD Active CIPRO 500 MG TAB 1 tablet by mouth twice daily CIPROFLOXACIN HCL 02046178993 No Longer Active Abdirahman Rios MD Active BENADRYL 25 MG CAP 1 po q8hr PRN Congestion DIPHENHYDRAMINE HCL 19881271577 No Longer Active Abdirahman Rios MD Active ZOLOFT 50 MG TAB 1 po qd SERTRALINE HCL 388634 06759 No Longer Active Abdirahman Rios MD Active AMOXICILLIN 875 MG TABS 1 tab by mouth twice daily 201 08/09/13 AMOXICILLIN 87727762185 No Longer Active Abdirahman Rios MD Activ e AMOXICILLIN 875 MG TABS 1 tab by mouth twice daily 201 07/19/27 AMOXICILLIN 92829463779 No Longer Active Abdirahman Rios MD Activ e BACTRIM DS 800-160 MG TAB 2 tab by mouth twice daily 2 TRIMETHOPRIM-SULFAMETHOXAZOLE 89469143735 No Longer Active Abdirahman Rios MD Active KEFLEX 500 MG CAP 1 po tid x 10 days CEPHALEXIN 63314067910 No Longer Active Abdirahman Rios MD Active AMOXICILLIN 875 MG TABS 1 tab by mouth twice daily 201 07/18/07 AMOXICILLIN 56740161596 No Longer Active Abdirahman Rios MD Activ e BACTRIM DS 800-160 MG TAB 2 tab by mouth twice daily 2 BACTRIM DS 800-160 MG TAB TRIMETHOPRIM-SULFAMETHOXAZOLE Inactive ZOLOFT 50 MG TAB 1 po qd ZOLOFT 50 MG TAB 3129 41 SERTRALINE HCL Inactive BENADRYL 25 MG CAP 1 po q8hr PRN Congestion BENADRYL 25 MG CAP 8297780 DIPHENHYDRAMINE HCL Inactive 28-0.8 MG TABS Take one by mouth daily 09/20 28-0.8 MG TABS VIT-FE FUMARATE-FA Inactive HYDROCODONE-ACETAMINOPHEN 5-325 MG TABS 1 po q 6hr PRN Pain 2010 HYDROCODONE-ACETAMINOPHEN 5-325 MG TABS 542312 HYDROCODONE-ACETAMINOPHEN Inactive LORATADINE 10 MG TABS 1 tablet by mouth daily LORATADINE 10 MG TABS 699128 LORATADINE Inactive LUIS 3-0.02 MG TABS 1 tablet by mouth daily as directed LUIS 3-0.02 MG TABS DROSPIRENONE-ETHINYL ESTRADIOL Inactive VITAMINS TABS Take one by mouth daily VITAMINS TABS MV & MIN W/FE-FA TABS Inactive PERCOCET 5-325 MG TABS 1 tablet by mouth every 6 hours as ne eded for pain PERCOCET 5-325 MG TABS 4125610 OXYCODONE-ACETAMIN OPHEN Inactive PREDNISONE 20 MG TAB 2 tabs daily for 4 days, 1 t ab daily for 4 days, 1/2 tab daily for 4 days PREDNISONE 20 MG TAB 323755 PREDNISON E Inactive CLINDAMYCIN HCL 300 MG CAPS 1 po q6hr x 7 days CLINDAMYCIN HCL 300 MG CAPS 876020 CLINDAMYCIN HCL Inactive HYDROCODONE-ACETAMINOPHEN 7.5-325 MG TABS 1 po QID PRN Pain 2011 HYDROCODONE-ACETAMINOPHEN 7.5-325 MG TABS 663684 HYDROCODONE-ACETAMINOPHEN Inactive SPIRONOLACTONE 25 MG TAB 1 tablet by mouth daily 01/22 SPIRONOLACTONE 25 MG TAB 499935 SPIRONOLACTONE Inactive IBUPROFEN 600 MG TAB 1 po q6-8hr PRN IBUPROFEN 600 MG TAB 685411 IBUPROFEN Inactive FERROUS SULFATE 325 (65 FE) MG TABS 1 tablet by mouth twice yung y FERROUS SULFATE 325 (65 FE) MG TABS 347462 FERROUS SULF ATE Inactive HYDROCODONE-ACETAMINOPHEN 7.5-500 MG [...] PRN Pain 2011 HYDROCODONE-ACETAMINOPHEN 5-325 MG TABS 872639 HYDROCODONE-ACETAMINOPHEN Inactive DOXYCYCLINE HYCLATE 100 MG CAPS Take one (1) tablet by mouth twice a day DOXYCYCLINE HYCLATE 100 MG CAPS 595817 DOXYCYCLINE HYCLATE Inactive PENICILLIN V POTASSIUM 500 MG TAB 1 four times a day 2 PENICILLIN V POTASSIUM 500 MG TAB 156385 PENICILLIN V POTASSIUM Siri ctive PRISTIQ 50 MG [id number] 1 po qd PRISTIQ 50 MG [id number] DESVENLAFAXINE SUCCINATE Inactive TYLENOL/CODEINE #3 300-30 MG TAB 1-2 po q6hr PRN Pain TYLENOL/CODEINE #3 300-30 MG TAB 494617 ACETAMINOPHEN-CODEINE Inact krishna CEPHALEXIN 500 MG TABS Take one by mouth four times daily, morning, noon, early evening and bedtime. CEPHALEXIN 500 MG TABS 889314 CEPHALEXIN Inactive LORTAB 5 5-500 MG TABS 1/2 to 1 tablet by mouth go ry 6 hours as needed for pain LORTAB 5 5-500 MG TABS HYDROCODONE-A CETAMINOPHEN Inactive AMITRIPTYLINE HCL 25 MG TAB 1 tab by mouth daily 60 minutes before bedtime AMITRIPTYLINE HCL 25 MG TAB 859029 AMITRIPTYLINE HCL Inactive AMOXICILLIN 500 MG TABS 2 tabs PO bid x 10 d 7 AMOXICILLIN 500 MG TABS 364574 AMOXICILLIN Inactive IMPLANON 68 MG IMPL IMPLANTED IN LEFT ARM IMPLANON 68 MG IMPL ETONOGESTREL Inactive HYDROCODONE-ACETAMINOPHEN 5-325 MG TABS 1 PO tid PRN pain 5 HYDROCODONE-ACETAMINOPHEN 5-325 MG TABS 783408 HYDROCODONE-ACETAMIN OPHEN Inactive BACTRIM DS 800-160 MG TAB 1 tab by mouth twice daily 2 BACTRIM DS 800-160 MG TAB TRIMETHOPRIM-SULFAMETHOXAZOLE Inac tive CEPHALEXIN 500 MG CAPS 1 PO bid x 7 days CEPHALEXIN 500 MG CAPS 020041 CEPHALEXIN Inactive HYDROCODONE-ACETAMINOPHEN 5-325 MG TABS 1 tab by mouth every 6 hours as needed HYDROCODONE-ACETAMINOPHEN 5-325 MG TABS 825914 HYDROCODONE-ACETAMINOPHEN Inactive PROMETHAZINE-CODEINE 6.25-10 MG/5ML SYRP 1 tsp every 6 hrs prn c ough PROMETHAZINE-CODEINE 6.25-10 MG/5ML SYRP 183067 PROMETH AZINE-CODEINE Inactive IBUPROFEN 800 MG TAB 1 pill three times daily as needed for pain IBUPROFEN 800 MG TAB 883072 IBUPROFEN Inactive KEFLEX 500 MG CAP 1 tab po tid KEFLEX 500 MG CAP 210653 CEPHALEXIN Inactive HYDROCODONE-ACETAMINOPHEN 7.5-325 MG TABS 1 four times a day as needed for pain HYDROCODONE-ACETAMINOPHEN 7.5-325 MG TABS 545960 HYDROCODONE-ACETAMINOPHEN Inactive BACTRIM DS 800-160 MG TABS by mouth twice a day 11/05 BACTRIM DS 800-160 MG TABS SULFAMETHOXAZOLE-TRIMETHOPRIM Inactive IBUPROFEN 800 MG TABS 1 tid prn IBUPROFEN 800 MG TABS 476907 IBUPROFEN Inactive ENDOCET 10-325 MG TABS 1 q 6 hr prn ENDOC ET 10-325 MG TABS 3310133 OXYCODONE-ACETAMINOPHEN Inactive AMOXICILLIN 875 MG TABS 1 tab by mouth twice daily 201 07/18/07 AMOXICILLIN 875 MG TABS 214128 AMOXICILLIN Inactive KEFLEX 500 MG CAP 1 po tid x 10 days KEFLEX 500 MG CAP 055919 CEPHALEXIN Inactive AMOXICILLIN 875 MG TABS 1 tab by mouth twice daily 201 07/19/27 AMOXICILLIN 875 MG TABS 337054 AMOXICILLIN Inactive AMOXICILLIN 875 MG TABS 1 tab by mouth twice daily 201 08/09/13 AMOXICILLIN 875 MG TABS 928791 AMOXICILLIN Inactive CIPRO 500 MG TAB 1 tablet by mouth twice daily CIPRO 500 MG TAB 073096 CIPROFLOXACIN HCL Inactive BACTRIM DS 800-160 MG TAB 1 tab by mouth twice daily 2 BACTRIM DS 800-160 MG TAB TRIMETHOPRIM-SULFAMETHOXAZOLE Inac tive LEVAQUIN 500 MG TABS 1 PO q day x 7 days LEVAQUIN 500 MG TABS 474054 LEVOFLOXACIN Inactive CLINDAMYCIN HCL 300 MG CAPS 1 po QID x 7 days CLINDAMYCIN HCL 300 MG CAPS 998940 CLINDAMYCIN HCL Inactive Advance Directives Directive Description Start Date PERMISSION TO SHARE Immunizations Vaccine Administration Date Value Standard Alf cription Seasonal influenza vaccine, injectable, containing preservative, for > 3 years old (Afluria, FluLaval, Fluzone, Fluvirin, Fluarix, Agriflu(>= 18 yo)) Fluzone (>3 yrs.) [[id number]] Influenza, seasonal, inject able Seasonal influenza vaccine, injectable, preservative free, for > 3 years old (Afluria, FluLaval, Fluzone, Fluvirin, Fluarix, Agriflu(>= 18 yo)) Fluzone preservative free (>3 yrs.) [[id number]] Influenza, seasonal, injectable, preservative free Seasonal influenza vaccine, injectable, containing preservative, for > 3 years old (Afluria, FluLaval, Fluzone, Fluvirin, Fluarix, Agriflu(>= 18 yo)) Fluzone (>3 yrs.) [[id number]] Influenza, seasonal, inject able Seasonal influenza vaccine, injectable, containing preservative, for > 3 years old (Afluria, FluLaval, Fluzone, Fluvirin, Fluarix, Agriflu(>= 18 yo)) Fluzone (>3 yrs.) [MPC948] Influenza, seasonal, inject able dT (Diphtheria and [...] ... - Chemistry sodium, serum 140 mmol/L 007-217 0434/02/24 potassium, serum 4.3 mmol/L 3.5-5.2 chloride, serum [...] 4.3-6.0 Lab Report: T3, TOTAL, INSULIN - Singing Waiter Or Waitress ry triiodothyronine (T3), serum 78 ng/dL 76-181 [...] mg/dL Encounters Code Encounter Date Provider Facility CPT-77306 Level 3 Est. Patient 14:19:37 CDT Abdirahman Rios MD [facility] CPT-99847 Level 3 Est. Patient 14:11:58 CDT Kalpesh goins MD [facility] CPT-03728 Level 3 Est. Patient 16:50:00 CDT Michelle MERCADO [facility] CPT-81521 Level 3 Est. Patient 17:11:32 ALODIZE MACHINE OPERATOR Brandie bates MD PhD [facility] CPT-35019 Level 3 Est. Patient 16:31:47 ALODIZE MACHINE OPERATOR Shola Wright [facility] CPT-94586 Level 3 Est. Patient 17:51:10 ALODIZE MACHINE OPERATOR Abhinav Galvan MD [facility] CPT-11208 Level 4 Est. Patient 12:54:56 ALODIZE MACHINE OPERATOR Kalpesh goins MD [facility] CPT-96401 Level 4 Est. Patient 12:53:56 ALODIZE MACHINE OPERATOR Kalpesh goins MD [facility] CPT-89651 Level 3 Est. Patient 17:56:58 CDT Shola Wright [facility] CPT-29891 Level 3 Est. Patient 14:26:20 CDT Janak butcher [facility] CPT-41656 Level 3 Est. Patient 09:38:41 CDT Shola Wright [facility] CPT-81429 Level 3 Est. Patient 14:45:26 CDT Edilberto tiwari DO [facility] CPT-18541 Level 3 Est. Patient 10:51:33 [facility] Est. Patient 11:57:55 ALODIZE MACHINE OPERATOR Shola Wright [facility] CPT-06742 Level 3 Est. Patient 09:53:33 ALODIZE MACHINE OPERATOR Edilberto tiwari [facility] CPT-61624 Level 3 Est. Patient 14:42:54 ALODIZE MACHINE OPERATOR Abhinav Galvan MD [facility] CPT-40291 Level 3 Est. Patient 15:10:02 CDT Janak Stevenamira butcher [facility] CPT-88618 Level 3 Est. Patient 15:20:20 CDT Theo dennis MD [facility]-31753 Level 2 Est. Patient 14:08:57 CDT Kalpesh ogins MD [facility] CPT-48397 Level 3 Est. Patient 13:56:19 CDT Abdirahman Rios MD [facility] CPT-43837 Level 3 Est. Patient 13:59:37 CDT Abdirahman Rios MD [facility] CPT-04305 Level 2 Est. Patient 14:44:59 CDT Kalpesh goins MD [facility] CPT-64100 Level 3 Est. Patient 06:06:23 CDT Edilberto tiwari [facility] CPT-77991 Level 3 Est. Patient 15:23:54 CDT Abdirahman Rios MD [facility] CPT-58474 Level 3 Est. Patient 15:43:49 CDT Abdirahman Rios MD [facility] CPT-39512 Level 3 Est. Patient 12:46:47 ALODIZE MACHINE OPERATOR Abdirahman Rios MD [facility] CPT-46555 Level 3 Est. Patient 08:13:35 ALODIZE MACHINE OPERATOR Abdirahman Rios MD [facility] CPT-97034 Level 2 Est. Patient 09:36:42 ALODIZE MACHINE OPERATOR Abdirahman Rios MD [facility] CPT-58458 Level 3 Est. Patient 10:56:43 CDT Abdirahman Rios MD [facility] CPT-93164 Level 3 Est. Patient 18:24:52 CDT Abdirahman Rios MD [facility] CPT-94791 Level 3 Est. Patient 13:27:22 CDT Abdirahman Rios MD [facility] Procedures Code Procedure Name Date Entry Date Standard Desc ription CPT-OV Office Visit 15:34:48 CDT CPT-03226 Postop F/U Visit 14:50:12 CDT CPT-11376 Postop F/U Visit 14:41:10 CDT CPT-40698 Venipuncture Draw Fee 11:38:04 ALODIZE MACHINE OPERATOR CPT-05595 Postop F/U Visit 19:02:59 ALODIZE MACHINE OPERATOR CPT-85539 Postop F/U Visit 12:04:54 ALODIZE MACHINE OPERATOR CPT-15432 Administration single or combination vac cine inc oral 15:56:43 CDT CPT-55567 Influenza split virus > age 3 15:56:43 CDT CPT-66412 Hand comp min 3V 14:25:19 CDT CPT-27105 Postop F/U Visit 21:40:51 CDT CPT-67334 Postop F/U Visit 10:58:43 CDT CPT-48072 Administration single or combination vac cine inc oral 12:33:54 ALODIZE MACHINE OPERATOR CPT-52684 Influenza Preservative Free split virus >age 3 12:33:54 ALODIZE MACHINE OPERATOR CPT-40493 Administration single or combination vac cine inc oral 09:30:51 CDT CPT-61293 Influenza split virus > age 3 09:30:51 CDT CPT-27816 Postop F/U Visit 15:14:53 CDT CPT-06724 Postop F/U Visit 13:50:14 CDT CPT-77038 Postop F/U Visit 13:34:52 CDT CPT-OV Office Visit 16:55:03 CDT CPT-66202 Christine of cervix w bx ECC 13:32:50 CDT 10/19 CPT-J1885 Toradol 60 mg (Ketorolac) 15:31:59 CDT 2011 CPT-J1885 Toradol 60 mg (Ketorolac) 15:23:54 CDT 2011 CPT-84669 Visit 11:34:37 ALODIZE MACHINE OPERATOR CPT-70655 Visit 10:52:39 ALODIZE MACHINE OPERATOR CPT-33512 Visit 10:12:02 ALODIZE MACHINE OPERATOR CPT-29942 Visit 11:22:43 ALODIZE MACHINE OPERATOR CPT-59770 Visit 11:24:12 ALODIZE MACHINE OPERATOR CPT-56226 Visit 10:47:05 ALODIZE MACHINE OPERATOR CPT-OV Office Visit 10:26:16 ALODIZE MACHINE OPERATOR CPT-OV Office Visit 15:34:31 ALODIZE MACHINE OPERATOR CPT-26215 Visit 10:42:08 ALODIZE MACHINE OPERATOR CPT-15972 Visit 10:52:45 ALODIZE MACHINE OPERATOR CPT-000 Give Appropriate Flu Vaccine 16:56:41 CDT 2 CPT-81890 Administration single or combination vac cine inc oral 10:33:21 CDT CPT-01581 Influenza split virus > age 3 10:33:21 CDT CPT-38599 Visit 13:23:09 CDT CPT-69381 Visit 18:24:52 CDT CPT-41703 Sono OB comp > 14 weeks 12:07:49 CDT 04/07
--- OUTSIDE RECORDS SUMMARY | 2020-01-18 17:10 | XMS REPORT | Clinical Summary ---
Author Author Admin, Jeri Rashid Organization [facility] Address Unknown Phone Unavailable Allergies, Adverse [...] INFECTIONS SKIN&SUBCUT TISSUE ICD-686.8 2 Inactive Abdirahman iRos MD VAGINAL DISCHARGE ICD-623.5 Inactive Abdirahman sanchez [...] PO q 8 hrs PRN pain OXYCODONE-ACETAMINOPHEN [id number] No Longer Active Shola MCGILL Active HYDROCODONE-ACETAMINOPHEN 10-325 MG TABS 1 by mouth ev chaka 8 hours as needed for pain HYDROCODONE-ACETAMINOPHEN 79530089033 Active Shola MCGILL Active HYDROCODONE-ACETAMINOPHEN 7.5-325 MG TABS 1 by mouth e very 6 hours as needed for pain HYDROCODONE-ACETAMINOPHEN 23083438477 No Longer Active Good Julian MD Active LC-5 LIDOCAINE 5 % CREA apply 1 time daily to affected area LIDOCAINE (ANORECTAL) 34015447731 Active Shola MCGILL Active CLINDAMYCIN HCL 300 MG CAPS 1 po QID x 7 days CLINDAMYCIN HCL 03886476799 No Longer Active Abdirahman Rios MD Activ e BACTRIM DS 800-160 MG TABS 1 po BID x 7 days 5 SULFAMETHOXAZOLE-TRIMETHOPRIM 91753202350 No Longer Active Abdirahman Rios MD Active ENDOCET 10-325 MG TABS 1 q 6 hr prn OXYCODONE-ACETAMINOPHEN 72332414718 No Longer Active Abdirahman Rios MD Active IBUPROFEN 800 MG TABS 1 tid prn IBUPROFEN 468814 10701 No Longer Active Abdirahman Rios MD Active BACTRIM DS 800-160 MG TABS by mouth twice a day 11/05 SULFAMETHOXAZOLE-TRIMETHOPRIM 88397148699 No Longer Active Good Julian MD Active HYDROCODONE-ACETAMINOPHEN 7.5-325 MG TABS 1 four times a day as needed for pain HYDROCODONE-ACETAMINOPHEN 36232595999 No Longer Activ e Good Julian MD Active KEFLEX 500 MG CAP 1 tab po tid CEPHALEXIN 051266 28464 No Longer Active Hira Moser CLINICAL SYSTEMS ANALYST Active IBUPROFEN 800 MG TAB 1 pill three times daily as needed for pain IBUPROFEN 59816223212 No Longer Active Kalpesh Dong MD Active PROMETHAZINE-CODEINE 6.25-10 MG/5ML SYRP 1 tsp every 6 hrs prn c ough PROMETHAZINE-CODEINE 79107935643 No Longer Active Kalpesh Carr Active ALPRAZOLAM 0.5 MG TABS 1 PO bid PRN ALPRAZOLAM 524527 29021 Active Shola MCGILL Active HYDROCODONE-ACETAMINOPHEN 5-325 MG TABS 1 tab by mouth every 6 hours as needed HYDROCODONE-ACETAMINOPHEN 09423783091 No Longer Activ e Shola MCGILL Active CEPHALEXIN 500 MG CAPS 1 PO bid x 7 days CEPHAL EXIN 76119420129 No Longer Active Shola MCGILL Active BACTRIM DS 800-160 MG TAB 1 tab by mouth twice daily 2 TRIMETHOPRIM-SULFAMETHOXAZOLE 96178280875 No Longer Active Kalpesh Dong MD Active HYDROCODONE-ACETAMINOPHEN 5-325 MG TABS 1 PO tid PRN pain 5 HYDROCODONE-ACETAMINOPHEN 12744200802 No Longer Active Abhinav Galvan MD Active IMPLANON 68 MG IMPL IMPLANTED IN LEFT ARM ETONO GESTREL 21577859484 No Longer Active Hira Moser APRN Active AMOXICILLIN 500 MG TABS 2 tabs PO bid x 10 d AM OXICILLIN 03164660377 No Longer Active Kalpesh Dong MD Active LEVAQUIN 500 MG TABS 1 PO q day x 7 days LEVOFL OXACIN 93230205001 No Longer Active Shola MCGILL Active PROAIR HFA 108 (90 BASE) MCG/ACT AERS 2 puff q 4-6 hrs PRN ALBUTEROL SULFATE 33794743627 Active Shola MCGILL Acti ve FIORICET 50-325-40 MG TABS 2 PO q 8 hrs PRN FOSTER [id number] Active Shola MCGILL Active AMITRIPTYLINE HCL 25 MG TAB 1 tab by mouth daily 60 minutes before bedtime AMITRIPTYLINE HCL 12738209409 No Longer Active Shola MCGILL Active LORTAB 5 5-500 MG TABS 1/2 to 1 tablet by mouth go ry 6 hours as needed for pain HYDROCODONE-ACETAMINOPHEN 55171185868 No Longer Active Shola MCGILL Active CEPHALEXIN 500 MG TABS Take one by mouth four times daily, morning, noon, early evening and bedtime. CEPHALEXIN 96751925481 No Long er Active Hira Moser APRN Active TYLENOL/CODEINE #3 300-30 MG TAB 1-2 po q6hr PRN Pain ACETAMINOPHEN-CODEINE 12000758865 No Longer Active Edilberto Marino DO Active PRISTIQ 50 MG [id number] 1 po qd DESVENLAFAXI NE SUCCINATE 88881223314 No Longer Active Edilberto Marino DO Active PENICILLIN V POTASSIUM 500 MG TAB 1 four times a day 2 PENICILLIN V POTASSIUM 96762136697 No Longer Active Edilberto Marino DO Active DOXYCYCLINE HYCLATE 100 MG CAPS Take one (1) tablet by mouth twice a day DOXYCYCLINE HYCLATE 69804407242 No Longer Active Ronnie Galvan MD Active HYDROCODONE-ACETAMINOPHEN 5-325 MG TABS 1 po q 6hr PRN Pain 2011 HYDROCODONE-ACETAMINOPHEN 25072343543 No Longer Active Jerson Perez RN Active BACTRIM DS 800-160 MG TAB 1 tab by mouth twice daily 2 TRIMETHOPRIM-SULFAMETHOXAZOLE 05492675230 No Longer Active Kalpesh Dong MD Active LORTAB 5 5-500 MG TABS 1/2 to 1 tablet by mouth go ry 4 hours as needed for pain HYDROCODONE-ACETAMINOPHEN 47596974085 No Longer Active Kalpesh Dong MD Active GENERESS FE 0.8-25 MG-MCG CHEW Take one by mouth daily NORETHIN-ETH ESTRADIOL-FE 83569387301 No Longer Active Kalpesh Dong MD Active HYDROCODONE-ACETAMINOPHEN 7.5-500 MG TABS 1-2 every 4 hours as needed HYDROCODONE-ACETAMINOPHEN 72828107706 No Longer Activ e Kalpesh Dong MD Active FERROUS SULFATE 325 (65 FE) MG TABS 1 tablet by mouth twice yung y FERROUS SULFATE 54249353567 No Longer Active Kalpesh Dong MD Active IBUPROFEN 600 MG TAB 1 po q6-8hr PRN IBUPROFEN 63051240057 No Longer Active Kalpesh Dong MD Active SPIRONOLACTONE 25 MG TAB 1 tablet by mouth daily 01/22 SPIRONOLACTONE 71624634725 No Longer Active Kalpesh Dong MD Acti ve HYDROCODONE-ACETAMINOPHEN 7.5-325 MG TABS 1 po QID PRN Pain 2011 HYDROCODONE-ACETAMINOPHEN 49146873371 No Longer Active Kalpesh Dong MD Active CLINDAMYCIN HCL 300 MG CAPS 1 po q6hr x 7 days CLINDAMYCIN HCL 08560687068 No Longer Active Edilberto Marino DO Active PREDNISONE 20 MG TAB 2 tabs daily for 4 days, 1 t ab daily for 4 days, 1/2 tab daily for 4 days PREDNISONE 30865385768 No Longer Active Edilberto Marino DO Active PERCOCET 5-325 MG TABS 1 tablet by mouth every 6 hours as ne eded for pain OXYCODONE-ACETAMINOPHEN 41484311836 No Longer Active Abdirahman Rios MD Active VITAMINS TABS Take one by mouth daily MV & MIN W/FE-FA TABS 37289053469 No Longer Active Abdirahman Rios MD Active LUIS 3-0.02 MG TABS 1 tablet by mouth daily as directed DROSPIRENONE-ETHINYL ESTRADIOL 77608974671 No Longer Active Abdirahman Rios MD Active LORATADINE 10 MG TABS 1 tablet by mouth daily L ORATADINE 58143334325 No Longer Active Kalpesh Dong MD Active HYDROCODONE-ACETAMINOPHEN 5-325 MG TABS 1 po q 6hr PRN Pain 2010 HYDROCODONE-ACETAMINOPHEN 56965974920 No Longer Active Edilberto Marino DO Active BACTRIM DS 800-160 MG TAB 1 tab by mouth twice daily 2 TRIMETHOPRIM-SULFAMETHOXAZOLE 58507314616 No Longer Active Abdirahman Rios MD Active 28-0.8 MG TABS Take one by mouth daily 09/20 VIT-FE FUMARATE-FA 93928633525 No Longer Active Abdirahman Rios MD Active CIPRO 500 MG TAB 1 tablet by mouth twice daily CIPROFLOXACIN HCL 35850144580 No Longer Active Abdirahman Rios MD Active BENADRYL 25 MG CAP 1 po q8hr PRN Congestion DIPHENHYDRAMINE HCL 34957993623 No Longer Active Abdirahman Rios MD Active ZOLOFT 50 MG TAB 1 po qd SERTRALINE HCL 228176 38948 No Longer Active Abdirahman Rios MD Active AMOXICILLIN 875 MG TABS 1 tab by mouth twice daily 201 08/09/13 AMOXICILLIN 53887545807 No Longer Active Abdirahman Rios MD Activ e AMOXICILLIN 875 MG TABS 1 tab by mouth twice daily 201 07/19/27 AMOXICILLIN 99502540604 No Longer Active Abdirahman Rios MD Activ e BACTRIM DS 800-160 MG TAB 2 tab by mouth twice daily 2 TRIMETHOPRIM-SULFAMETHOXAZOLE 14987676300 No Longer Active Abdirahman Rios MD Active KEFLEX 500 MG CAP 1 po tid x 10 days CEPHALEXIN 07222616755 No Longer Active Abdirahman Rios MD Active AMOXICILLIN 875 MG TABS 1 tab by mouth twice daily 201 07/18/07 AMOXICILLIN 93143851182 No Longer Active Abdirahman Rios MD Activ e BACTRIM DS 800-160 MG TAB 2 tab by mouth twice daily 2 BACTRIM DS 800-160 MG TAB TRIMETHOPRIM-SULFAMETHOXAZOLE Inactive ZOLOFT 50 MG TAB 1 po qd ZOLOFT 50 MG TAB 3129 41 SERTRALINE HCL Inactive BENADRYL 25 MG CAP 1 po q8hr PRN Congestion BENADRYL 25 MG CAP 7161180 DIPHENHYDRAMINE HCL Inactive 28-0.8 MG TABS Take one by mouth daily 09/20 28-0.8 MG TABS VIT-FE FUMARATE-FA Inactive HYDROCODONE-ACETAMINOPHEN 5-325 MG TABS 1 po q 6hr PRN Pain 2010 HYDROCODONE-ACETAMINOPHEN 5-325 MG TABS 961077 HYDROCODONE-ACETAMINOPHEN Inactive LORATADINE 10 MG TABS 1 tablet by mouth daily LORATADINE 10 MG TABS 878582 LORATADINE Inactive LUIS 3-0.02 MG TABS 1 tablet by mouth daily as directed LUIS 3-0.02 MG TABS DROSPIRENONE-ETHINYL ESTRADIOL Inactive VITAMINS TABS Take one by mouth daily VITAMINS TABS MV & MIN W/FE-FA TABS Inactive PERCOCET 5-325 MG TABS 1 tablet by mouth every 6 hours as ne eded for pain PERCOCET 5-325 MG TABS 2103560 OXYCODONE-ACETAMIN OPHEN Inactive PREDNISONE 20 MG TAB 2 tabs daily for 4 days, 1 t ab daily for 4 days, 1/2 tab daily for 4 days PREDNISONE 20 MG TAB 430585 PREDNISON E Inactive CLINDAMYCIN HCL 300 MG CAPS 1 po q6hr x 7 days CLINDAMYCIN HCL 300 MG CAPS 935336 CLINDAMYCIN HCL Inactive HYDROCODONE-ACETAMINOPHEN 7.5-325 MG TABS 1 po QID PRN Pain 2011 HYDROCODONE-ACETAMINOPHEN 7.5-325 MG TABS 089392 HYDROCODONE-ACETAMINOPHEN Inactive SPIRONOLACTONE 25 MG TAB 1 tablet by mouth daily 01/22 SPIRONOLACTONE 25 MG TAB 299654 SPIRONOLACTONE Inactive IBUPROFEN 600 MG TAB 1 po q6-8hr PRN IBUPROFEN 600 MG TAB 269562 IBUPROFEN Inactive FERROUS SULFATE 325 (65 FE) MG TABS 1 tablet by mouth twice yung y FERROUS SULFATE 325 (65 FE) MG TABS 215287 FERROUS SULF ATE Inactive HYDROCODONE-ACETAMINOPHEN 7.5-500 MG [...] PRN Pain 2011 HYDROCODONE-ACETAMINOPHEN 5-325 MG TABS 208556 HYDROCODONE-ACETAMINOPHEN Inactive DOXYCYCLINE HYCLATE 100 MG CAPS Take one (1) tablet by mouth twice a day DOXYCYCLINE HYCLATE 100 MG CAPS 195233 DOXYCYCLINE HYCLATE Inactive PENICILLIN V POTASSIUM 500 MG TAB 1 four times a day 2 PENICILLIN V POTASSIUM 500 MG TAB 258768 PENICILLIN V POTASSIUM Siri ctive PRISTIQ 50 MG [id number] 1 po qd PRISTIQ 50 MG [id number] DESVENLAFAXINE SUCCINATE Inactive TYLENOL/CODEINE #3 300-30 MG TAB 1-2 po q6hr PRN Pain TYLENOL/CODEINE #3 300-30 MG TAB 341188 ACETAMINOPHEN-CODEINE Inact krishna CEPHALEXIN 500 MG TABS Take one by mouth four times daily, morning, noon, early evening and bedtime. CEPHALEXIN 500 MG TABS 094964 CEPHALEXIN Inactive LORTAB 5 5-500 MG TABS 1/2 to 1 tablet by mouth go ry 6 hours as needed for pain LORTAB 5 5-500 MG TABS HYDROCODONE-A CETAMINOPHEN Inactive AMITRIPTYLINE HCL 25 MG TAB 1 tab by mouth daily 60 minutes before bedtime AMITRIPTYLINE HCL 25 MG TAB 647401 AMITRIPTYLINE HCL Inactive AMOXICILLIN 500 MG TABS 2 tabs PO bid x 10 d 7 AMOXICILLIN 500 MG TABS 595038 AMOXICILLIN Inactive IMPLANON 68 MG IMPL IMPLANTED IN LEFT ARM IMPLANON 68 MG IMPL ETONOGESTREL Inactive HYDROCODONE-ACETAMINOPHEN 5-325 MG TABS 1 PO tid PRN pain 5 HYDROCODONE-ACETAMINOPHEN 5-325 MG TABS 804435 HYDROCODONE-ACETAMIN OPHEN Inactive BACTRIM DS 800-160 MG TAB 1 tab by mouth twice daily 2 BACTRIM DS 800-160 MG TAB TRIMETHOPRIM-SULFAMETHOXAZOLE Inac tive CEPHALEXIN 500 MG CAPS 1 PO bid x 7 days CEPHALEXIN 500 MG CAPS 499902 CEPHALEXIN Inactive HYDROCODONE-ACETAMINOPHEN 5-325 MG TABS 1 tab by mouth every 6 hours as needed HYDROCODONE-ACETAMINOPHEN 5-325 MG TABS 429492 HYDROCODONE-ACETAMINOPHEN Inactive PROMETHAZINE-CODEINE 6.25-10 MG/5ML SYRP 1 tsp every 6 hrs prn c ough PROMETHAZINE-CODEINE 6.25-10 MG/5ML SYRP 490564 PROMETH AZINE-CODEINE Inactive IBUPROFEN 800 MG TAB 1 pill three times daily as needed for pain IBUPROFEN 800 MG TAB 962273 IBUPROFEN Inactive KEFLEX 500 MG CAP 1 tab po tid KEFLEX 500 MG CAP 337094 CEPHALEXIN Inactive HYDROCODONE-ACETAMINOPHEN 7.5-325 MG TABS 1 four times a day as needed for pain HYDROCODONE-ACETAMINOPHEN 7.5-325 MG TABS 838822 HYDROCODONE-ACETAMINOPHEN Inactive BACTRIM DS 800-160 MG TABS by mouth twice a day 11/05 BACTRIM DS 800-160 MG TABS SULFAMETHOXAZOLE-TRIMETHOPRIM Inactive IBUPROFEN 800 MG TABS 1 tid prn IBUPROFEN 800 MG TABS 407012 IBUPROFEN Inactive ENDOCET 10-325 MG TABS 1 q 6 hr prn ENDOC ET 10-325 MG TABS 1909712 OXYCODONE-ACETAMINOPHEN Inactive HYDROCODONE-ACETAMINOPHEN 7.5-325 MG TABS 1 by mouth e very 6 hours as needed for pain HYDROCODONE-ACETAMINOPHEN 7.5-325 MG TABS 440967 HYDROCODONE-ACETAMINOPHEN Inactive PERCOCET 7.5-325 MG TABS 1 PO q 8 hrs PRN pain PERCOCET 7.5-325 MG TABS 9883963 OXYCODONE-ACETAMINOPHEN Inactive AMOXICILLIN 875 MG TABS 1 tab by mouth twice daily 201 07/18/07 AMOXICILLIN 875 MG TABS 467784 AMOXICILLIN Inactive KEFLEX 500 MG CAP 1 po tid x 10 days KEFLEX 500 MG CAP 267794 CEPHALEXIN Inactive AMOXICILLIN 875 MG TABS 1 tab by mouth twice daily 201 07/19/27 AMOXICILLIN 875 MG TABS 849542 AMOXICILLIN Inactive AMOXICILLIN 875 MG TABS 1 tab by mouth twice daily 201 08/09/13 AMOXICILLIN 875 MG TABS 008009 AMOXICILLIN Inactive CIPRO 500 MG TAB 1 tablet by mouth twice daily CIPRO 500 MG TAB 951737 CIPROFLOXACIN HCL Inactive BACTRIM DS 800-160 MG TAB 1 tab by mouth twice daily 2 BACTRIM DS 800-160 MG TAB TRIMETHOPRIM-SULFAMETHOXAZOLE Inac tive LEVAQUIN 500 MG TABS 1 PO q day x 7 days LEVAQUIN 500 MG TABS 498151 LEVOFLOXACIN Inactive CLINDAMYCIN HCL 300 MG CAPS 1 po QID x 7 days CLINDAMYCIN HCL 300 MG CAPS 204881 CLINDAMYCIN HCL Inactive Advance Directives Directive Description Start Date PERMISSION TO SHARE Immunizations Vaccine Administration Date Value Standard Alf cription Seasonal influenza vaccine, injectable, containing preservative, for > 3 years old (Afluria, FluLaval, Fluzone, Fluvirin, Fluarix, Agriflu(>= 18 yo)) Fluzone (>3 yrs.) [[id number]] Influenza, seasonal, inject able Seasonal influenza vaccine, injectable, preservative free, for > 3 years old (Afluria, FluLaval, Fluzone, Fluvirin, Fluarix, Agriflu(>= 18 yo)) Fluzone preservative free (>3 yrs.) [[id number]] Influenza, seasonal, injectable, preservative free Seasonal influenza vaccine, injectable, containing preservative, for > 3 years old (Afluria, FluLaval, Fluzone, Fluvirin, Fluarix, Agriflu(>= 18 yo)) Fluzone (>3 yrs.) [[id number]] Influenza, seasonal, inject able Seasonal influenza vaccine, injectable, containing preservative, for > 3 years old (Afluria, FluLaval, Fluzone, Fluvirin, Fluarix, Agriflu(>= 18 yo)) Fluzone (>3 yrs.) [[id number]] Influenza, seasonal, inject able dT (Diphtheria and [...] ... 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 Patient 14:19:37 CDT Abdirahman Rios MD [facility] CPT-62111 Level 3 Est. Patient 14:11:58 CDT Kalpesh goins MD [facility] CPT-52383 Level 3 Est. Patient 16:50:00 CDT Michelle BRADFORDP [facility] CPT-23039 Level 3 Est. Patient 17:11:32 REHAB OFFICE COORDINATOR Brandie bates MD PhD [facility]-87717 Level 3 Est. Patient 16:31:47 REHAB OFFICE COORDINATOR Shola Houghsabi [facility] CPT-04787 Level 3 Est. Patient 17:51:10 REHAB OFFICE COORDINATOR Abhinav Galvan MD [facility]-03618 Level 4 Est. Patient 12:54:56 REHAB OFFICE COORDINATOR Kalpesh goins MD [facility]-54487 Level 4 Est. Patient 12:53:56 REHAB OFFICE COORDINATOR Kalpesh goins MD [facility]-89295 Level 3 Est. Patient 17:56:58 CDT Shola Houghsabi [facility] CPT-23061 Level 3 Est. Patient 14:26:20 CDT Janak Maurizioamira butcher [facility] CPT-61048 Level 3 Est. Patient 09:38:41 CDT Shola Thao Adriana [facility] CPT-11959 Level 3 Est. Patient 14:45:26 CDT Edilberto tiwari [facility]-72056 Level 3 Est. Patient 10:51:33 [facility] Est. Patient 11:57:55 REHAB OFFICE COORDINATOR Shola Wright [facility] CPT-74664 Level 3 Est. Patient 09:53:33 REHAB OFFICE COORDINATOR Edilberto tiwari [facility] CPT-09225 Level 3 Est. Patient 14:42:54 REHAB OFFICE COORDINATOR Abhinav Galvan MD [facility]-07222 Level 3 Est. Patient 15:10:02 CDT Janak Stevenamira butcher [facility] CPT-96126 Level 3 Est. Patient 15:20:20 CDT Theo dennis MD [facility] CPT-40987 Level 2 Est. Patient 14:08:57 CDT Kalpesh goins MD [facility] CPT-52278 Level 3 Est. Patient 13:56:19 CDT Abdirahman Rios MD [facility] CPT-03443 Level 3 Est. Patient 13:59:37 CDT Abdirahman Rios MD [facility] CPT-21432 Level 2 Est. Patient 14:44:59 CDT Kalpesh goins MD [facility] CPT-22006 Level 3 Est. Patient 06:06:23 CDT Edilberto tiwari DO [facility] CPT-53722 Level 3 Est. Patient 15:23:54 CDT Abdirahman Rios MD [facility] CPT-63050 Level 3 Est. Patient 15:43:49 CDT Abdirahmna Rios MD [facility] CPT-63068 Level 3 Est. Patient 12:46:47 REHAB OFFICE COORDINATOR Abdirahman Rios MD [facility] CPT-76493 Level 3 Est. Patient 08:13:35 REHAB OFFICE COORDINATOR Abdirahman Rios MD [facility] CPT-19246 Level 2 Est. Patient 09:36:42 REHAB OFFICE COORDINATOR Abdirahman Rios MD [facility] CPT-43270 Level 3 Est. Patient 10:56:43 CDT Abdirahman Rios MD [facility] CPT-77826 Level 3 Est. Patient 18:24:52 CDT Abdirahman Rios MD [facility] CPT-88764 Level 3 Est. Patient 13:27:22 CDT Abdirahman Rios MD [facility] Procedures Code Procedure Name Date Entry Date Standard Desc ription CPT-OV Office Visit 16:16:36 CDT CPT-OV Office Visit 15:34:48 CDT CPT-28496 Postop F/U Visit 14:50:12 CDT CPT-79414 Postop F/U Visit 14:41:10 CDT CPT-16530 Venipuncture Draw Fee 11:38:04 REHAB OFFICE COORDINATOR CPT-74797 Postop F/U Visit 19:02:59 REHAB OFFICE COORDINATOR CPT-90082 Postop F/U Visit 12:04:54 REHAB OFFICE COORDINATOR CPT-49005 Administration single or combination vac cine inc oral 15:56:43 CDT CPT-37369 Influenza split virus > age 3 15:56:43 CDT CPT-18478 Hand comp min 3V 14:25:19 CDT CPT-47266 Postop F/U Visit 21:40:51 CDT CPT-35325 Postop F/U Visit 10:58:43 CDT CPT-30835 Administration single or combination vac cine inc oral 12:33:54 REHAB OFFICE COORDINATOR CPT-17174 Influenza Preservative Free split virus >age 3 12:33:54 REHAB OFFICE COORDINATOR CPT-96638 Administration single or combination vac cine inc oral 09:30:51 CDT CPT-42607 Influenza split virus > age 3 09:30:51 CDT CPT-12671 Postop F/U Visit 15:14:53 CDT CPT-00096 Postop F/U Visit 13:50:14 CDT CPT-48251 Postop F/U Visit 13:34:52 CDT CPT-OV Office Visit 16:55:03 CDT CPT-78323 [place] of cervix w bx ECC 13:32:50 CDT 10/19 CPT-J1885 Toradol 60 mg (Ketorolac) 15:31:59 CDT 2011 CPT-J1885 Toradol 60 mg (Ketorolac) 15:23:54 CDT 2011 CPT-27446 Visit 11:34:37 REHAB OFFICE COORDINATOR CPT-68198 Visit 10:52:39 REHAB OFFICE COORDINATOR CPT-81797 Visit 10:12:02 REHAB OFFICE COORDINATOR CPT-59896 Visit 11:22:43 REHAB OFFICE COORDINATOR CPT-54499 Visit 11:24:12 REHAB OFFICE COORDINATOR CPT-36538 Visit 10:47:05 REHAB OFFICE COORDINATOR CPT-OV Office Visit 10:26:16 REHAB OFFICE COORDINATOR CPT-OV Office Visit 15:34:31 REHAB OFFICE COORDINATOR CPT-37091 Visit 10:42:08 REHAB OFFICE COORDINATOR CPT-31903 Visit 10:52:45 REHAB OFFICE COORDINATOR CPT-000 Give Appropriate Flu Vaccine 16:56:41 CDT 2 CPT-79711 Administration single or combination vac cine inc oral 10:33:21 CDT CPT-28249 Influenza split virus > age 3 10:33:21 CDT CPT-50387 Visit 13:23:09 CDT CPT-45566 Visit 18:24:52 CDT CPT-66612 Sono OB comp > 14 weeks 12:07:49 CDT 04/07
--- OUTSIDE RECORDS SUMMARY | 2020-01-18 17:10 | XMS REPORT | Clinical Summary ---
Author Author Admin, Jeri Rashid Organization [facility] Address Unknown Phone Allergies, Adverse Reactions, Alerts [...] by mouth twice a day 11/05 SULFAMETHOXAZOLE-TRIMETHOPRIM [id number] No Longer Active Good Julian MD Active IBUPROFEN 800 MG TABS 1 tid prn IBUPROFEN [id number] Active Good Julian MD Active ENDOCET 10-325 MG TABS 1 q 6 hr prn OXYCODONE-A CETAMINOPHEN 82013485638 Active Shola MCGILL Active HYDROCODONE-ACETAMINOPHEN 7.5-325 MG TABS 1 four times a day as needed for pain HYDROCODONE-ACETAMINOPHEN 72885106877 No Longer Activ crystal Julian MD Active KEFLEX 500 MG CAP 1 tab po tid CEPHALEXIN 999229 88181 No Longer Active Hira Moser APRN Active IBUPROFEN 800 MG TAB 1 pill three times daily as needed for pain IBUPROFEN 10925397509 No Longer Active Kalpesh Dong MD Active PROMETHAZINE-CODEINE 6.25-10 MG/5ML SYRP 1 tsp every 6 hrs prn c ough PROMETHAZINE-CODEINE 99235503733 No Longer Active Kalpesh Carr Active ALPRAZOLAM 0.5 MG TABS 1 PO bid PRN ALPRAZOLAM 721122 43742 Active Shola MCGILL Active HYDROCODONE-ACETAMINOPHEN 5-325 MG TABS 1 tab by mouth every 6 hours as needed HYDROCODONE-ACETAMINOPHEN 74706608137 No Longer Activ e Shola MCGILL Active CEPHALEXIN 500 MG CAPS 1 PO bid x 7 days CEPHAL EXIN 34363169128 No Longer Active Shola MCGILL Active BACTRIM DS 800-160 MG TAB 1 tab by mouth twice daily 2 TRIMETHOPRIM-SULFAMETHOXAZOLE 27161946446 No Longer Active Kalpesh Dong MD Active HYDROCODONE-ACETAMINOPHEN 5-325 MG TABS 1 PO tid PRN pain 5 HYDROCODONE-ACETAMINOPHEN 82956558248 No Longer Active Abhinav Galvan MD Active IMPLANON 68 MG IMPL IMPLANTED IN LEFT ARM ETONO GESTREL 62902084391 No Longer Active 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 TOY STUFFER Active AMOXICILLIN 500 MG TABS 2 tabs PO bid x 10 d AM OXICILLIN 79607393833 No Longer Active Kalpesh Dong MD Active LEVAQUIN 500 MG TABS 1 PO q day x 7 days LEVOFL OXACIN 68979835942 No Longer Active Shola MCGILL Active PROAIR HFA 108 (90 BASE) MCG/ACT AERS 2 puff q 4-6 hrs PRN ALBUTEROL SULFATE 94452664761 Active Shola MCGILL Acti ve FIORICET 50-325-40 MG TABS 2 PO q 8 hrs PRN FOSTER [id number] 27642866081 Active Abidrahman Rios MD Active AMITRIPTYLINE HCL 25 MG TAB 1 tab by mouth daily 60 minutes before bedtime AMITRIPTYLINE HCL 88187180501 No Longer Active Shola MCGILL Active LORTAB 5 5-500 MG TABS 1/2 to 1 tablet by mouth go ry 6 hours as needed for pain HYDROCODONE-ACETAMINOPHEN 29134750856 No Longer Active Shola MCGILL Active CEPHALEXIN 500 MG TABS Take one by mouth four times daily, morning, noon, early evening and bedtime. CEPHALEXIN 03373443664 No Long er Active Hira Moser TOY STUFFER Active TYLENOL/CODEINE #3 300-30 MG TAB 1-2 po q6hr PRN Pain ACETAMINOPHEN-CODEINE 13429347647 No Longer Active Edilberto Marino DO Active PRISTIQ 50 MG [id number] 1 po qd DESVENLAFAXI NE SUCCINATE 08903573722 No Longer Active Edilberto Marino DO Active PENICILLIN V POTASSIUM 500 MG TAB 1 four times a day 2 PENICILLIN V POTASSIUM 15468386665 No Longer Active Edilberto Marino DO Active DOXYCYCLINE HYCLATE 100 MG CAPS Take one (1) tablet by mouth twice a day DOXYCYCLINE HYCLATE 23039315308 No Longer Active Ronnie Galvan MD Active HYDROCODONE-ACETAMINOPHEN 5-325 MG TABS 1 po q 6hr PRN Pain 2011 HYDROCODONE-ACETAMINOPHEN 73982168463 No Longer Active Patri joan Perez RN Active BACTRIM DS 800-160 MG TAB 1 tab by mouth twice daily 2 TRIMETHOPRIM-SULFAMETHOXAZOLE 37723846293 No Longer Active Kalpesh Dong MD Active LORTAB 5 5-500 MG TABS 1/2 to 1 tablet by mouth go ry 4 hours as needed for pain HYDROCODONE-ACETAMINOPHEN 67863984773 No Longer Active Kalpesh Dong MD Active GENERESS FE 0.8-25 MG-MCG CHEW Take one by mouth daily NORETHIN-ETH ESTRADIOL-FE 72111236848 No Longer Active Kalpesh Dong MD Active HYDROCODONE-ACETAMINOPHEN 7.5-500 MG TABS 1-2 every 4 hours as needed HYDROCODONE-ACETAMINOPHEN 81437716942 No Longer Activ e Kalpesh Dong MD Active FERROUS SULFATE 325 (65 FE) MG TABS 1 tablet by mouth twice yung y FERROUS SULFATE 15635145064 No Longer Active Kalpesh Dong MD Active IBUPROFEN 600 MG TAB 1 po q6-8hr PRN IBUPROFEN 07480055230 No Longer Active Kalpesh Dong MD Active SPIRONOLACTONE 25 MG TAB 1 tablet by mouth daily 01/22 SPIRONOLACTONE 73722563721 No Longer Active Kalpesh Dong MD Acti ve HYDROCODONE-ACETAMINOPHEN 7.5-325 MG TABS 1 po QID PRN Pain 2011 HYDROCODONE-ACETAMINOPHEN 32780720386 No Longer Active Kalpesh Dong MD Active CLINDAMYCIN HCL 300 MG CAPS 1 po q6hr x 7 days CLINDAMYCIN HCL 60377971454 No Longer Active Edilberto Marino DO Active PREDNISONE 20 MG TAB 2 tabs daily for 4 days, 1 t ab daily for 4 days, 1/2 tab daily for 4 days PREDNISONE 52300877948 No Longer Active Edilberto Marino DO Active PERCOCET 5-325 MG TABS 1 tablet by mouth every 6 hours as ne eded for pain OXYCODONE-ACETAMINOPHEN 78297946202 No Longer Active Abdirahman Rios MD Active VITAMINS TABS Take one by mouth daily MV & MIN W/FE-FA TABS 86995561381 No Longer Active Abdirahman Rios MD Active LUIS 3-0.02 MG TABS 1 tablet by mouth daily as directed DROSPIRENONE-ETHINYL ESTRADIOL 11186924981 No Longer Active Abdirahman Rios MD Active LORATADINE 10 MG TABS 1 tablet by mouth daily L ORATADINE 54888920191 No Longer Active Kalpesh Dong MD Active HYDROCODONE-ACETAMINOPHEN 5-325 MG TABS 1 po q 6hr PRN Pain 2010 HYDROCODONE-ACETAMINOPHEN 36686474105 No Longer Active Edilberto Marino DO Active BACTRIM DS 800-160 MG TAB 1 tab by mouth twice daily 2 TRIMETHOPRIM-SULFAMETHOXAZOLE 48301166105 No Longer Active Abdirahman Rios MD Active 28-0.8 MG TABS Take one by mouth daily 09/20 VIT-FE FUMARATE-FA 19553995757 No Longer Active Abdirahman Rios MD Active CIPRO 500 MG TAB 1 tablet by mouth twice daily CIPROFLOXACIN HCL 14908003111 No Longer Active Abdirahman Rios MD Active BENADRYL 25 MG CAP 1 po q8hr PRN Congestion DIPHENHYDRAMINE HCL 68284380720 No Longer Active Abdirahman Rios MD Active ZOLOFT 50 MG TAB 1 po qd SERTRALINE HCL 128398 31414 No Longer Active Abdirahman Rios MD Active AMOXICILLIN 875 MG TABS 1 tab by mouth twice daily 201 08/09/13 AMOXICILLIN 34960201603 No Longer Active Abdirahman Rios MD Activ e AMOXICILLIN 875 MG TABS 1 tab by mouth twice daily 201 07/19/27 AMOXICILLIN 17155561663 No Longer Active Abdirahman Rios MD Activ e BACTRIM DS 800-160 MG TAB 2 tab by mouth twice daily 2 TRIMETHOPRIM-SULFAMETHOXAZOLE 24128184719 No Longer Active Abdirahman Rios MD Active KEFLEX 500 MG CAP 1 po tid x 10 days CEPHALEXIN 85185506661 No Longer Active Abdirahman Rios MD Active AMOXICILLIN 875 MG TABS 1 tab by mouth twice daily 201 07/18/07 AMOXICILLIN 89515752788 No Longer Active Abdirahman Rios MD Activ e BACTRIM DS 800-160 MG TAB 2 tab by mouth twice daily 2 BACTRIM DS 800-160 MG TAB TRIMETHOPRIM-SULFAMETHOXAZOLE Inactive ZOLOFT 50 MG TAB 1 po qd ZOLOFT 50 MG TAB 3129 41 SERTRALINE HCL Inactive BENADRYL 25 MG CAP 1 po q8hr PRN Congestion BENADRYL 25 MG CAP 7269732 DIPHENHYDRAMINE HCL Inactive 28-0.8 MG TABS Take one by mouth daily 09/20 28-0.8 MG TABS VIT-FE FUMARATE-FA Inactive HYDROCODONE-ACETAMINOPHEN 5-325 MG TABS 1 po q 6hr PRN Pain 2010 HYDROCODONE-ACETAMINOPHEN 5-325 MG TABS 377615 HYDROCODONE-ACETAMINOPHEN Inactive LORATADINE 10 MG TABS 1 tablet by mouth daily LORATADINE 10 MG TABS 217325 LORATADINE Inactive LUIS 3-0.02 MG TABS 1 tablet by mouth daily as directed LUIS 3-0.02 MG TABS DROSPIRENONE-ETHINYL ESTRADIOL Inactive VITAMINS TABS Take one by mouth daily VITAMINS TABS MV & MIN W/FE-FA TABS Inactive PERCOCET 5-325 MG TABS 1 tablet by mouth every 6 hours as ne eded for pain PERCOCET 5-325 MG TABS 7126386 OXYCODONE-ACETAMIN OPHEN Inactive PREDNISONE 20 MG TAB 2 tabs daily for 4 days, 1 t ab daily for 4 days, 1/2 tab daily for 4 days PREDNISONE 20 MG TAB 358775 PREDNISON E Inactive CLINDAMYCIN HCL 300 MG CAPS 1 po q6hr x 7 days CLINDAMYCIN HCL 300 MG CAPS 584772 CLINDAMYCIN HCL Inactive HYDROCODONE-ACETAMINOPHEN 7.5-325 MG TABS 1 po QID PRN Pain 2011 HYDROCODONE-ACETAMINOPHEN 7.5-325 MG TABS 112858 HYDROCODONE-ACETAMINOPHEN Inactive SPIRONOLACTONE 25 MG TAB 1 tablet by mouth daily 01/22 SPIRONOLACTONE 25 MG TAB 951151 SPIRONOLACTONE Inactive IBUPROFEN 600 MG TAB 1 po q6-8hr PRN IBUPROFEN 600 MG TAB 446307 IBUPROFEN Inactive FERROUS SULFATE 325 (65 FE) MG TABS 1 tablet by mouth twice yung y FERROUS SULFATE 325 (65 FE) MG TABS 718914 FERROUS SULF ATE Inactive HYDROCODONE-ACETAMINOPHEN 7.5-500 MG TABS 1-2 every 4 hours as needed HYDROCODONE-ACETAMINOPHEN 7.5-500 MG TABS 951361 HYDROCODONE-ACETAMINOPHEN Inactive GENERESS FE 0.8-25 MG-MCG CHEW [...] PRN Pain 2011 HYDROCODONE-ACETAMINOPHEN 5-325 MG TABS 739750 HYDROCODONE-ACETAMINOPHEN Inactive DOXYCYCLINE HYCLATE 100 MG CAPS Take one (1) tablet by mouth twice a day DOXYCYCLINE HYCLATE 100 MG CAPS 950237 DOXYCYCLINE HYCLATE Inactive PENICILLIN V POTASSIUM 500 MG TAB 1 four times a day 2 PENICILLIN V POTASSIUM 500 MG TAB 252887 PENICILLIN V POTASSIUM [place] ct[place] PRISTIQ 50 MG [id number] 1 po qd PRISTIQ 50 MG [id number] DESVENLAFAXINE SUCCINATE Inactive TYLENOL/CODEINE #3 300-30 MG TAB 1-2 po q6hr PRN Pain TYLENOL/CODEINE #3 300-30 MG TAB 796683 ACETAMINOPHEN-CODEINE Inact krishna CEPHALEXIN 500 MG TABS Take one by mouth four times daily, morning, noon, early evening and bedtime. CEPHALEXIN 500 MG TABS 954740 CEPHALEXIN Inactive LORTAB 5 5-500 MG TABS 1/2 to 1 tablet by mouth go ry 6 hours as needed for pain LORTAB 5 5-500 MG TABS HYDROCODONE-A CETAMINOPHEN Inactive AMITRIPTYLINE HCL 25 MG TAB 1 tab by mouth daily 60 minutes before bedtime AMITRIPTYLINE HCL 25 MG TAB 623381 AMITRIPTYLINE HCL Inactive AMOXICILLIN 500 MG TABS 2 tabs PO bid x 10 d 7 AMOXICILLIN 500 MG TABS 976588 AMOXICILLIN Inactive IMPLANON 68 MG IMPL IMPLANTED IN LEFT ARM IMPLANON 68 MG IMPL ETONOGESTREL Inactive HYDROCODONE-ACETAMINOPHEN 5-325 MG TABS 1 PO tid PRN pain 5 HYDROCODONE-ACETAMINOPHEN 5-325 MG TABS 893470 HYDROCODONE-ACETAMIN OPHEN Inactive BACTRIM DS 800-160 MG TAB 1 tab by mouth twice daily 2 BACTRIM DS 800-160 MG TAB TRIMETHOPRIM-SULFAMETHOXAZOLE Inac tive CEPHALEXIN 500 MG CAPS 1 PO bid x 7 days CEPHALEXIN 500 MG CAPS 493671 CEPHALEXIN Inactive HYDROCODONE-ACETAMINOPHEN 5-325 MG TABS 1 tab by mouth every 6 hours as needed HYDROCODONE-ACETAMINOPHEN 5-325 MG TABS 120658 HYDROCODONE-ACETAMINOPHEN Inactive PROMETHAZINE-CODEINE 6.25-10 MG/5ML SYRP 1 tsp every 6 hrs prn c ough PROMETHAZINE-CODEINE 6.25-10 MG/5ML SYRP 947354 PROMETH AZINE-CODEINE Inactive IBUPROFEN 800 MG TAB 1 pill three times daily as needed for pain IBUPROFEN 800 MG TAB 869619 IBUPROFEN Inactive KEFLEX 500 MG CAP 1 tab po tid KEFLEX 500 MG CAP 299910 CEPHALEXIN Inactive HYDROCODONE-ACETAMINOPHEN 7.5-325 MG TABS 1 four times a day as needed for pain HYDROCODONE-ACETAMINOPHEN 7.5-325 MG TABS 881823 HYDROCODONE-ACETAMINOPHEN Inactive BACTRIM DS 800-160 MG TABS by mouth twice a day 11/05 BACTRIM DS 800-160 MG TABS SULFAMETHOXAZOLE-TRIMETHOPRIM Inactive AMOXICILLIN 875 MG TABS 1 tab by mouth twice daily 201 07/18/07 AMOXICILLIN 875 MG TABS 230819 AMOXICILLIN Inactive KEFLEX 500 MG CAP 1 po tid x 10 days KEFLEX 500 MG CAP 864922 CEPHALEXIN Inactive AMOXICILLIN 875 MG TABS 1 tab by mouth twice daily 201 07/19/27 AMOXICILLIN 875 MG TABS 266670 AMOXICILLIN Inactive AMOXICILLIN 875 MG TABS 1 tab by mouth twice daily 08/09/13 AMOXICILLIN 875 MG TABS 969570 AMOXICILLIN Inactive CIPRO 500 MG TAB 1 tablet by mouth twice daily CIPRO 500 MG TAB 834530 CIPROFLOXACIN HCL Inactive BACTRIM DS 800-160 MG TAB 1 tab by mouth twice daily 2 BACTRIM DS 800-160 MG TAB TRIMETHOPRIM-SULFAMETHOXAZOLE Inac tive LEVAQUIN 500 MG TABS 1 PO q day x 7 days LEVAQUIN 500 MG TABS 272792 LEVOFLOXACIN Inactive Advance Directives Directive Description Start Date PERMISSION TO SHARE Immunizations Vaccine Administration Date Value Standard Alf cription Seasonal influenza vaccine, injectable, containing preservative, for > 3 years old (Afluria, FluLaval, Fluzone, Fluvirin, Fluarix, Agriflu(>= 18 yo)) Fluzone (>3 yrs.) [[id number]] Influenza, seasonal, inject able Seasonal influenza vaccine, injectable, preservative free, for > 3 years old (Afluria, FluLaval, Fluzone, Fluvirin, Fluarix, Agriflu(>= 18 yo)) Fluzone preservative free (>3 yrs.) [[id number]] Influenza, seasonal, injectable, preservative free Seasonal influenza vaccine, injectable, containing preservative, for > 3 years old (Afluria, FluLaval, Fluzone, Fluvirin, Fluarix, Agriflu(>= 18 yo)) Fluzone (>3 yrs.) [[id number]] Influenza, seasonal, inject able Seasonal influenza vaccine, injectable, containing preservative, for > 3 years old (Afluria, FluLaval, Fluzone, Fluvirin, Fluarix, Agriflu(>= 18 yo)) Fluzone (>3 yrs.) [[id number]] Influenza, seasonal, inject able dT (Diphtheria and [...] mg/dL Chart Maintenance: Outside labs entered on Ratioheet - Hematology leukocyte count, blood 8.3 10*3/mm3 erythrocyte (RBC) count 5.2 10*6/mm3 hemoglobin, blood 14.2 g/dL hematocrit, blood 42.6 % mean corpuscular volume, RBC 82.4 fL mean corpuscular hemoglobin, RBC 27.5 pg red blood cell distribution width 12.9 % platelet count 316 10*3/mm3 Lab Report: CBC W/DIFF, Comp. Metabolic Panel, Thyroid Stimulating Hormo ... - Chemistry sodium, serum 140 mmol/L 678-765 7427/02/24 potassium, serum 4.3 mmol/L 3.5-5.2 chloride, serum [...] 4.3-6.0 Lab Report: T3, TOTAL, INSULIN - [employer] ry triiodothyronine, serum 78 ng/dL 76-181 Lab [...] mg/dL Encounters Code Encounter Date Provider Facility CPT-42190 Level 3 Est. Patient 14:11:58 CDT Kalpesh goins MD [facility] CPT-15305 Level 3 Est. Patient 16:50:00 CDT Michelle MERCADO [facility] CPT-45481 Level 3 Est. Patient 17:11:32 [employer]BER Brandie bates MD PhD [facility] CPT-68532 Level 3 Est. Patient 16:31:47 [employer] TEAM MEMBER Shola MCGILL [facility] CPT-48786 Level 3 Est. Patient 17:51:10 [employer] TE[employer] MEMBER Abhinav Galvan MD [facility] CPT-59365 Level 4 Est. Patient 12:54:56 [employer] TE[employer]BER Kalpesh goins MD [facility] CPT-80019 Level 4 Est. Patient 12:53:56 [employer] TEAM MEMBER Kalpesh goins MD [facility] CPT-14228 Level 3 Est. Patient 17:56:58 CDT Shola MCGILL [facility] CPT-35750 Level 3 Est. Patient 14:26:20 CDT Janak butcher [facility] CPT-07677 Level 3 Est. Patient 09:38:41 CDT Shola Wright [facility] CPT-37804 Level 3 Est. Patient 14:45:26 CDT Edilberto tiwari [facility] CPT-00604 Level 3 Est. Patient 10:51:33 CDT Hira muniz [facility] CPT-23616 Level 3 Est. Patient 11:57:55 [employer] TEAM MEMBER Shola Thao Adriana [facility] CPT-92235 Level 3 Est. Patient 09:53:33 HUM[employer] TEAM MEMBER Edilberto tiwari [facility] CPT-99728 Level 3 Est. Patient 14:42:54 [employer] TEAM MEMBER Abhinav Galvan MD [facility] CPT-61045 Level 3 Est. Patient 15:10:02 CDT Janak butcher [facility] CPT-61560 Level 3 Est. Patient 15:20:20 CDT Theo dennis MD [facility] CPT-13688 Level 2 Est. Patient 14:08:57 CDT Kalpesh goins MD [facility] CPT-10737 Level 3 Est. Patient 13:56:19 CDT Abdirahman Rios MD [facility] CPT-25710 Level 3 Est. Patient 13:59:37 CDT Abdirahman Rios MD [facility] CPT-12517 Level 2 Est. Patient 14:44:59 CDT Kalpesh goins MD [facility]-27031 Level 3 Est. Patient 06:06:23 CDT Edilberto tiwari [facility] CPT-12220 Level 3 Est. Patient 15:23:54 CDT Abdirahman Rios MD [facility] CPT-34132 Level 3 Est. Patient 15:43:49 CDT Abdirahman Rios MD [facility] CPT-96319 Level 3 Est. Patient 12:46:47 [employer] TE[employer]BER Abdirahman Rios MD [facility] CPT-53707 Level 3 Est. Patient 08:13:35 [employer] TEAM [employer]BER Abdirahman Rios MD [facility] CPT-03129 Level 2 Est. Patient 09:36:42 [employer] TEAM MEMBER Abdirahman Rios MD [facility] CPT-56763 Level 3 Est. Patient 10:56:43 CDT Abdirahman Rios MD [facility] CPT-42350 Level 3 Est. Patient 18:24:52 CDT Abdirahman Rios MD [facility] CPT-59764 Level 3 Est. Patient 13:27:22 CDT Abdirahman Rios MD [facility] Procedures Code Procedure Name Date Entry Date Standard Desc ription CPT-OV Office Visit 15:34:48 CDT CPT-66964 Postop F/U Visit 14:50:12 CDT CPT-44977 Postop F/U Visit 14:41:10 CDT CPT-17099 Venipuncture Draw Fee 11:38:04 [employer]BER CPT-96412 Postop F/U Visit 19:02:59 [employer] TE[employer]BER CPT-16300 Postop F/U Visit 12:04:54 [employer] TE[employer]BER CPT-43805 Administration single or combination vac cine inc oral 15:56:43 CDT CPT-77478 Influenza split virus > age 3 15:56:43 CDT CPT-49078 Hand comp min 3V 14:25:19 CDT CPT-25362 Postop F/U Visit 21:40:51 CDT CPT-66102 Postop F/U Visit 10:58:43 CDT CPT-41031 Administration single or combination vac cine inc oral 12:33:54 [employer] TE[employer]BER CPT-10574 Influenza Preservative Free split virus >age 3 12:33:54 [employer] TEAM MEMBER CPT-00042 Administration single or combination vac cine inc oral 09:30:51 CDT CPT-59320 Influenza split virus > age 3 09:30:51 CDT CPT-81625 Postop F/U Visit 15:14:53 CDT CPT-88874 Postop F/U Visit 13:50:14 CDT CPT-94926 Postop F/U Visit 13:34:52 CDT CPT-OV Office Visit 16:55:03 CDT CPT-74094 [place] of cervix w bx ECC 13:32:50 CDT 10/19 CPT-J1885 Toradol 60 mg (Ketorolac) 15:31:59 CDT 2011 CPT-J1885 Toradol 60 mg (Ketorolac) 15:23:54 CDT 2011 CPT-46554 Visit 11:34:37 [employer] TE[employer]BER CPT-40417 Visit 10:52:39 H[employer] TEAM [employer]BER CPT-40027 Visit 10:12:02 H[employer] TEAM MEMBER CPT-89364 Visit 11:22:43 H[employer] TE[employer]BER CPT-77918 Visit 11:24:12 H[employer] TE[employer] MEMBER CPT-21794 Visit 10:47:05 H[employer]AN [employer] TEAM MEMBER CPT-OV Office Visit 10:26:16 H[employer] TEAM MEMBER CPT-OV Office Visit 15:34:31 [employer] TE[employer]BER CPT-38511 Visit 10:42:08 H[employer] TEAM MEMBER CPT-68079 Visit 10:52:45 [employer] TEAM [employer]BER CPT-000 Give Appropriate Flu Vaccine 16:56:41 CDT 2 CPT-28001 Administration single or combination vac cine inc oral 10:33:21 CDT CPT-60587 Influenza split virus > age 3 10:33:21 CDT CPT-28494 Visit 13:23:09 CDT CPT-12905 Visit 18:24:52 CDT CPT-36845 Sono OB comp > 14 weeks 12:07:49 CDT 04/07
--- OUTSIDE RECORDS SUMMARY | 2020-01-18 17:11 | XMS REPORT | Clinical Summary ---
Author Author Admin, Jeri Rashid Organization [facility] Address Unknown Phone Allergies, Adverse Reactions, Alerts [...] by mouth twice a day 11/05 SULFAMETHOXAZOLE-TRIMETHOPRIM [id number] No Longer Active Good Julian MD Active IBUPROFEN 800 MG TABS 1 tid prn IBUPROFEN 49022602371 Active Good Julian MD Active ENDOCET 10-325 MG TABS 1 q 6 hr prn OXYCODONE-A CETAMINOPHEN 88790489029 Active Shola MCGILL Active HYDROCODONE-ACETAMINOPHEN 7.5-325 MG TABS 1 four times a day as needed for pain HYDROCODONE-ACETAMINOPHEN 33738615249 No Longer Activ crystal Julian MD Active KEFLEX 500 MG CAP 1 tab po tid CEPHALEXIN 026935 61044 No Longer Active Hira Moser APRN Active IBUPROFEN 800 MG TAB 1 pill three times daily as needed for pain IBUPROFEN 94695114280 No Longer Active Kalpesh Dong MD Active PROMETHAZINE-CODEINE 6.25-10 MG/5ML SYRP 1 tsp every 6 hrs prn c ough PROMETHAZINE-CODEINE 74426803017 No Longer Active Kalpesh Carr Active ALPRAZOLAM 0.5 MG TABS 1 PO bid PRN ALPRAZOLAM 015282 84715 Active Shola MCGILL Active HYDROCODONE-ACETAMINOPHEN 5-325 MG TABS 1 tab by mouth every 6 hours as needed HYDROCODONE-ACETAMINOPHEN 14393005402 No Longer Activ e Shola MCGILL Active CEPHALEXIN 500 MG CAPS 1 PO bid x 7 days CEPHAL EXIN 02347703199 No Longer Active Shola MCGILL Active BACTRIM DS 800-160 MG TAB 1 tab by mouth twice daily 2 TRIMETHOPRIM-SULFAMETHOXAZOLE 20045863229 No Longer Active Kalpesh Dong MD Active HYDROCODONE-ACETAMINOPHEN 5-325 MG TABS 1 PO tid PRN pain 5 HYDROCODONE-ACETAMINOPHEN 83772727722 No Longer Active Abhinav Galvan MD Active IMPLANON 68 MG IMPL IMPLANTED IN LEFT ARM ETONO GESTREL 18771393417 No Longer Active 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 POULTRY PROCESS WORKER Active AMOXICILLIN 500 MG TABS 2 tabs PO bid x 10 d AM OXICILLIN 30406094480 No Longer Active Kalpesh Dong MD Active LEVAQUIN 500 MG TABS 1 PO q day x 7 days LEVOFL OXACIN 84049786984 No Longer Active Shola MCGILL Active PROAIR HFA 108 (90 BASE) MCG/ACT AERS 2 puff q 4-6 hrs PRN ALBUTEROL SULFATE 69769987747 Active Shola MCGILL Acti ve FIORICET 50-325-40 MG TABS 2 PO q 8 hrs PRN FOSTER [id number] 32026160035 Active Abdirahman Rios MD Active AMITRIPTYLINE HCL 25 MG TAB 1 tab by mouth daily 60 minutes before bedtime AMITRIPTYLINE HCL 82844053896 No Longer Active Shola MCGILL Active LORTAB 5 5-500 MG TABS 1/2 to 1 tablet by mouth go ry 6 hours as needed for pain HYDROCODONE-ACETAMINOPHEN 26961525149 No Longer Active Shola MCGILL Active CEPHALEXIN 500 MG TABS Take one by mouth four times daily, morning, noon, early evening and bedtime. CEPHALEXIN 15829940578 No Long er Active Hira Moser POULTRY PROCESS WORKER Active TYLENOL/CODEINE #3 300-30 MG TAB 1-2 po q6hr PRN Pain ACETAMINOPHEN-CODEINE 40317898848 No Longer Active Edilberto Marino DO Active PRISTIQ 50 MG QN10B-SAQ 1 po qd DESVENLAFAXI NE SUCCINATE 79773371227 No Longer Active Edilberto Marino DO Active PENICILLIN V POTASSIUM 500 MG TAB 1 four times a day 2 PENICILLIN V POTASSIUM 12454082595 No Longer Active Edilberto Marino DO Active DOXYCYCLINE HYCLATE 100 MG CAPS Take one (1) tablet by mouth twice a day DOXYCYCLINE HYCLATE 13695953133 No Longer Active Ronnie Galvan MD Active HYDROCODONE-ACETAMINOPHEN 5-325 MG TABS 1 po q 6hr PRN Pain 2011 HYDROCODONE-ACETAMINOPHEN 29644311880 No Longer Active Patri joan Perez RN Active BACTRIM DS 800-160 MG TAB 1 tab by mouth twice daily 2 TRIMETHOPRIM-SULFAMETHOXAZOLE 89548122621 No Longer Active Kalpesh Dong MD Active LORTAB 5 5-500 MG TABS 1/2 to 1 tablet by mouth go ry 4 hours as needed for pain HYDROCODONE-ACETAMINOPHEN 63535939812 No Longer Active Kalpesh Dong MD Active GENERESS FE 0.8-25 MG-MCG CHEW Take one by mouth daily NORETHIN-ETH ESTRADIOL-FE 62152640311 No Longer Active Kalpesh Dong MD Active HYDROCODONE-ACETAMINOPHEN 7.5-500 MG TABS 1-2 every 4 hours as needed HYDROCODONE-ACETAMINOPHEN 26575659259 No Longer Activ e Kalpesh Dong MD Active FERROUS SULFATE 325 (65 FE) MG TABS 1 tablet by mouth twice yung y FERROUS SULFATE 74129772539 No Longer Active Kalpesh Dong MD Active IBUPROFEN 600 MG TAB 1 po q6-8hr PRN IBUPROFEN 30473473760 No Longer Active Kalpesh Dong MD Active SPIRONOLACTONE 25 MG TAB 1 tablet by mouth daily 01/22 SPIRONOLACTONE 64704933655 No Longer Active Kalpesh Dong MD Acti ve HYDROCODONE-ACETAMINOPHEN 7.5-325 MG TABS 1 po QID PRN Pain 2011 HYDROCODONE-ACETAMINOPHEN 80847089912 No Longer Active Kalpesh Dong MD Active CLINDAMYCIN HCL 300 MG CAPS 1 po q6hr x 7 days CLINDAMYCIN HCL 68383104572 No Longer Active Edilberto Marino DO Active PREDNISONE 20 MG TAB 2 tabs daily for 4 days, 1 t ab daily for 4 days, 1/2 tab daily for 4 days PREDNISONE 56087018774 No Longer Active Edilberto Marino DO Active PERCOCET 5-325 MG TABS 1 tablet by mouth every 6 hours as ne eded for pain OXYCODONE-ACETAMINOPHEN 83886080241 No Longer Active Abdirahman Rios MD Active VITAMINS TABS Take one by mouth daily MV & MIN W/FE-FA TABS 79392063538 No Longer Active Abdirahman Rios MD Active LUIS 3-0.02 MG TABS 1 tablet by mouth daily as directed DROSPIRENONE-ETHINYL ESTRADIOL 09962188710 No Longer Active Abdirahman Rios MD Active LORATADINE 10 MG TABS 1 tablet by mouth daily L ORATADINE 15838175945 No Longer Active Kalpesh Dong MD Active HYDROCODONE-ACETAMINOPHEN 5-325 MG TABS 1 po q 6hr PRN Pain 2010 HYDROCODONE-ACETAMINOPHEN 86518844796 No Longer Active Edilberto Marino DO Active BACTRIM DS 800-160 MG TAB 1 tab by mouth twice daily 2 TRIMETHOPRIM-SULFAMETHOXAZOLE 64402548381 No Longer Active Abdirahman Rios MD Active 28-0.8 MG TABS Take one by mouth daily 09/20 VIT-FE FUMARATE-FA 17570476050 No Longer Active Abdirahman Rios MD Active CIPRO 500 MG TAB 1 tablet by mouth twice daily CIPROFLOXACIN HCL 59538228174 No Longer Active Abdirahman Rios MD Active BENADRYL 25 MG CAP 1 po q8hr PRN Congestion DIPHENHYDRAMINE HCL 17655467049 No Longer Active Abdirahman Rios MD Active ZOLOFT 50 MG TAB 1 po qd SERTRALINE HCL 281592 38559 No Longer Active Abdirahman Rios MD Active AMOXICILLIN 875 MG TABS 1 tab by mouth twice daily 201 08/09/13 AMOXICILLIN 88703962023 No Longer Active Abdirahman Rios MD Activ e AMOXICILLIN 875 MG TABS 1 tab by mouth twice daily 201 07/19/27 AMOXICILLIN 34013097601 No Longer Active Abdirahman Rios MD Activ e BACTRIM DS 800-160 MG TAB 2 tab by mouth twice daily 2 TRIMETHOPRIM-SULFAMETHOXAZOLE 91695875692 No Longer Active Abdirahman Rios MD Active KEFLEX 500 MG CAP 1 po tid x 10 days CEPHALEXIN 70864605419 No Longer Active Abdirahman Rios MD Active AMOXICILLIN 875 MG TABS 1 tab by mouth twice daily 201 07/18/07 AMOXICILLIN 89851954563 No Longer Active Abdirahman Rios MD Activ e BACTRIM DS 800-160 MG TAB 2 tab by mouth twice daily 2 BACTRIM DS 800-160 MG TAB TRIMETHOPRIM-SULFAMETHOXAZOLE Inactive ZOLOFT 50 MG TAB 1 po qd ZOLOFT 50 MG TAB 3129 41 SERTRALINE HCL Inactive BENADRYL 25 MG CAP 1 po q8hr PRN Congestion BENADRYL 25 MG CAP 2657930 DIPHENHYDRAMINE HCL Inactive 28-0.8 MG TABS Take one by mouth daily 09/20 28-0.8 MG TABS VIT-FE FUMARATE-FA Inactive HYDROCODONE-ACETAMINOPHEN 5-325 MG TABS 1 po q 6hr PRN Pain 2010 HYDROCODONE-ACETAMINOPHEN 5-325 MG TABS 361335 HYDROCODONE-ACETAMINOPHEN Inactive LORATADINE 10 MG TABS 1 tablet by mouth daily LORATADINE 10 MG TABS 769598 LORATADINE Inactive LUIS 3-0.02 MG TABS 1 tablet by mouth daily as directed LUIS 3-0.02 MG TABS DROSPIRENONE-ETHINYL ESTRADIOL Inactive VITAMINS TABS Take one by mouth daily VITAMINS TABS MV & MIN W/FE-FA TABS Inactive PERCOCET 5-325 MG TABS 1 tablet by mouth every 6 hours as ne eded for pain PERCOCET 5-325 MG TABS 6939255 OXYCODONE-ACETAMIN OPHEN Inactive PREDNISONE 20 MG TAB 2 tabs daily for 4 days, 1 t ab daily for 4 days, 1/2 tab daily for 4 days PREDNISONE 20 MG TAB 991820 PREDNISON E Inactive CLINDAMYCIN HCL 300 MG CAPS 1 po q6hr x 7 days CLINDAMYCIN HCL 300 MG CAPS 824266 CLINDAMYCIN HCL Inactive HYDROCODONE-ACETAMINOPHEN 7.5-325 MG TABS 1 po QID PRN Pain 2011 HYDROCODONE-ACETAMINOPHEN 7.5-325 MG TABS 881922 HYDROCODONE-ACETAMINOPHEN Inactive SPIRONOLACTONE 25 MG TAB 1 tablet by mouth daily 01/22 SPIRONOLACTONE 25 MG TAB 158759 SPIRONOLACTONE Inactive IBUPROFEN 600 MG TAB 1 po q6-8hr PRN IBUPROFEN 600 MG TAB 125421 IBUPROFEN Inactive FERROUS SULFATE 325 (65 FE) MG TABS 1 tablet by mouth twice yung y FERROUS SULFATE 325 (65 FE) MG TABS 279334 FERROUS SULF ATE Inactive HYDROCODONE-ACETAMINOPHEN 7.5-500 MG TABS 1-2 every 4 hours as needed HYDROCODONE-ACETAMINOPHEN 7.5-500 MG TABS 154205 HYDROCODONE-ACETAMINOPHEN Inactive GENERESS FE 0.8-25 MG-MCG CHEW [...] PRN Pain 2011 HYDROCODONE-ACETAMINOPHEN 5-325 MG TABS 132306 HYDROCODONE-ACETAMINOPHEN Inactive DOXYCYCLINE HYCLATE 100 MG CAPS Take one (1) tablet by mouth twice a day DOXYCYCLINE HYCLATE 100 MG CAPS 191705 DOXYCYCLINE HYCLATE Inactive PENICILLIN V POTASSIUM 500 MG TAB 1 four times a day 2 PENICILLIN V POTASSIUM 500 MG TAB 999895 PENICILLIN V POTASSIUM [place] ctive PRISTIQ 50 MG [id number] 1 po qd PRISTIQ 50 MG [id number] DESVENLAFAXINE SUCCINATE Inactive TYLENOL/CODEINE #3 300-30 MG TAB 1-2 po q6hr PRN Pain TYLENOL/CODEINE #3 300-30 MG TAB 534647 ACETAMINOPHEN-CODEINE Inact krishna CEPHALEXIN 500 MG TABS Take one by mouth four times daily, morning, noon, early evening and bedtime. CEPHALEXIN 500 MG TABS 983209 CEPHALEXIN Inactive LORTAB 5 5-500 MG TABS 1/2 to 1 tablet by mouth go ry 6 hours as needed for pain LORTAB 5 5-500 MG TABS HYDROCODONE-A CETAMINOPHEN Inactive AMITRIPTYLINE HCL 25 MG TAB 1 tab by mouth daily 60 minutes before bedtime AMITRIPTYLINE HCL 25 MG TAB 226132 AMITRIPTYLINE HCL Inactive AMOXICILLIN 500 MG TABS 2 tabs PO bid x 10 d 7 AMOXICILLIN 500 MG TABS 860733 AMOXICILLIN Inactive IMPLANON 68 MG IMPL IMPLANTED IN LEFT ARM IMPLANON 68 MG IMPL ETONOGESTREL Inactive HYDROCODONE-ACETAMINOPHEN 5-325 MG TABS 1 PO tid PRN pain 5 HYDROCODONE-ACETAMINOPHEN 5-325 MG TABS 987970 HYDROCODONE-ACETAMIN OPHEN Inactive BACTRIM DS 800-160 MG TAB 1 tab by mouth twice daily 2 BACTRIM DS 800-160 MG TAB TRIMETHOPRIM-SULFAMETHOXAZOLE Inac tive CEPHALEXIN 500 MG CAPS 1 PO bid x 7 days CEPHALEXIN 500 MG CAPS 277897 CEPHALEXIN Inactive HYDROCODONE-ACETAMINOPHEN 5-325 MG TABS 1 tab by mouth every 6 hours as needed HYDROCODONE-ACETAMINOPHEN 5-325 MG TABS 871550 HYDROCODONE-ACETAMINOPHEN Inactive PROMETHAZINE-CODEINE 6.25-10 MG/5ML SYRP 1 tsp every 6 hrs prn c ough PROMETHAZINE-CODEINE 6.25-10 MG/5ML SYRP 028343 PROMETH AZINE-CODEINE Inactive IBUPROFEN 800 MG TAB 1 pill three times daily as needed for pain IBUPROFEN 800 MG TAB 160702 IBUPROFEN Inactive KEFLEX 500 MG CAP 1 tab po tid KEFLEX 500 MG CAP 153158 CEPHALEXIN Inactive HYDROCODONE-ACETAMINOPHEN 7.5-325 MG TABS 1 four times a day as needed for pain HYDROCODONE-ACETAMINOPHEN 7.5-325 MG TABS 128415 HYDROCODONE-ACETAMINOPHEN Inactive BACTRIM DS 800-160 MG TABS by mouth twice a day 11/05 BACTRIM DS 800-160 MG TABS SULFAMETHOXAZOLE-TRIMETHOPRIM Inactive AMOXICILLIN 875 MG TABS 1 tab by mouth twice daily 201 07/18/07 AMOXICILLIN 875 MG TABS 793275 AMOXICILLIN Inactive KEFLEX 500 MG CAP 1 po tid x 10 days KEFLEX 500 MG CAP 114640 CEPHALEXIN Inactive AMOXICILLIN 875 MG TABS 1 tab by mouth twice daily 201 07/19/27 AMOXICILLIN 875 MG TABS 539109 AMOXICILLIN Inactive AMOXICILLIN 875 MG TABS 1 tab by mouth twice daily 08/09/13 AMOXICILLIN 875 MG TABS 267109 AMOXICILLIN Inactive CIPRO 500 MG TAB 1 tablet by mouth twice daily CIPRO 500 MG TAB 220991 CIPROFLOXACIN HCL Inactive BACTRIM DS 800-160 MG TAB 1 tab by mouth twice daily 2 BACTRIM DS 800-160 MG TAB TRIMETHOPRIM-SULFAMETHOXAZOLE Inac tive LEVAQUIN 500 MG TABS 1 PO q day x 7 days LEVAQUIN 500 MG TABS 394905 LEVOFLOXACIN Inactive Advance Directives Directive Description Start Date PERMISSION TO SHARE Immunizations Vaccine Administration Date Value Standard Alf cription Seasonal influenza vaccine, injectable, containing preservative, for > 3 years old (Afluria, FluLaval, Fluzone, Fluvirin, Fluarix, Agriflu(>= 18 yo)) Fluzone (>3 yrs.) [[id number]] Influenza, seasonal, inject able Seasonal influenza vaccine, injectable, preservative free, for > 3 years old (Afluria, FluLaval, Fluzone, Fluvirin, Fluarix, Agriflu(>= 18 yo)) Fluzone preservative free (>3 yrs.) [[id number]] Influenza, seasonal, injectable, preservative free Seasonal influenza vaccine, injectable, containing preservative, for > 3 years old (Afluria, FluLaval, Fluzone, Fluvirin, Fluarix, Agriflu(>= 18 yo)) Fluzone (>3 yrs.) [[id number]] Influenza, seasonal, inject able Seasonal influenza vaccine, injectable, containing preservative, for > 3 years old (Afluria, FluLaval, Fluzone, Fluvirin, Fluarix, Agriflu(>= 18 yo)) Fluzone (>3 yrs.) [[id number]] Influenza, seasonal, inject able dT (Diphtheria and [...] mg/dL Chart Maintenance: Outside labs entered on [employer] - Hematology leukocyte count, blood 8.3 10*3/mm3 erythrocyte (RBC) count 5.2 10*6/mm3 hemoglobin, blood 14.2 g/dL hematocrit, blood 42.6 % mean corpuscular volume, RBC 82.4 fL mean corpuscular hemoglobin, RBC 27.5 pg red blood cell distribution width 12.9 % platelet count 316 10*3/mm3 Lab Report: CBC W/DIFF, Comp. Metabolic Panel, Thyroid Stimulating Hormo ... - Chemistry sodium, serum 140 mmol/L 282-481 4035/02/24 potassium, serum 4.3 mmol/L 3.5-5.2 chloride, serum [...] 4.3-6.0 Lab Report: T3, TOTAL, INSULIN - Dry Drug Worker ry triiodothyronine, serum 78 ng/dL 76-181 Lab [...] mg/dL Encounters Code Encounter Date Provider Facility CPT-84830 Level 3 Est. Patient 14:11:58 CDT Kalpesh goins MD [facility] CPT-66218 Level 3 Est. Patient 16:50:00 CDT Michelle MERCADO [facility] CPT-11585 Level 3 Est. Patient 17:11:32 SOCIAL WORKER AIDE Brandie bates MD PhD [facility] CPT-03754 Level 3 Est. Patient 16:31:47 SOCIAL WORKER AIDE Shola MCGILL [facility] CPT-89201 Level 3 Est. Patient 17:51:10 SOCIAL WORKER AIDE Abhinav Galvan MD [facility] CPT-98542 Level 4 Est. Patient 12:54:56 SOCIAL WORKER AIDE Kalpesh goins MD [facility] CPT-57816 Level 4 Est. Patient 12:53:56 SOCIAL WORKER AIDE Kalpesh goins MD [facility] CPT-97833 Level 3 Est. Patient 17:56:58 CDT Shola MCGILL [facility] CPT-92966 Level 3 Est. Patient 14:26:20 CDT Janak butcher [facility] CPT-01575 Level 3 Est. Patient 09:38:41 CDT Shola Wright [facility] CPT-30249 Level 3 Est. Patient 14:45:26 CDT Edilberto tiwari [facility] CPT-86516 Level 3 Est. Patient 10:51:33 CDT Hira muniz [facility] CPT-31607 Level 3 Est. Patient 11:57:55 SOCIAL WORKER AIDE Shola Thao Adriana [facility] CPT-56588 Level 3 Est. Patient 09:53:33 SOCIAL WORKER AIDE Edilberto tiwari [facility] CPT-73519 Level 3 Est. Patient 14:42:54 SOCIAL WORKER AIDE Abhinav Galvan MD [facility] CPT-82830 Level 3 Est. Patient 15:10:02 CDT Janak butcher [facility] CPT-17036 Level 3 Est. Patient 15:20:20 CDT Theo dennis MD [facility] CPT-90698 Level 2 Est. Patient 14:08:57 CDT Kalpesh goins MD [facility] CPT-78858 Level 3 Est. Patient 13:56:19 CDT Abdirahman Rios MD [facility] CPT-08960 Level 3 Est. Patient 13:59:37 CDT Abdirahman Rios MD [facility] CPT-31946 Level 2 Est. Patient 14:44:59 CDT Kalpesh goins MD [facility]-37822 Level 3 Est. Patient 06:06:23 CDT Edilberto tiwari [facility] CPT-03906 Level 3 Est. Patient 15:23:54 CDT Abdirahman Rios MD [facility] CPT-30069 Level 3 Est. Patient 15:43:49 CDT Abdirahman Rios MD [facility] CPT-23423 Level 3 Est. Patient 12:46:47 SOCIAL WORKER AIDE Abdirahman Rios MD [facility] CPT-91867 Level 3 Est. Patient 08:13:35 SOCIAL WORKER AIDE Abdirahman Rios MD [facility] CPT-70592 Level 2 Est. Patient 09:36:42 SOCIAL WORKER AIDE Abdirahman Rios MD [facility] CPT-33739 Level 3 Est. Patient 10:56:43 CDT Abdirahman Rios MD [facility] CPT-88796 Level 3 Est. Patient 18:24:52 CDT Abdirahman Rios MD [facility] CPT-59137 Level 3 Est. Patient 13:27:22 CDT Abdirahman Rios MD [facility] Procedures Code Procedure Name Date Entry Date Standard Desc ription CPT-OV Office Visit 15:34:48 CDT CPT-06779 Postop F/U Visit 14:50:12 CDT CPT-19427 Postop F/U Visit 14:41:10 CDT CPT-35585 Venipuncture Draw Fee 11:38:04 SOCIAL WORKER AIDE CPT-65835 Postop F/U Visit 19:02:59 SOCIAL WORKER AIDE CPT-41897 Postop F/U Visit 12:04:54 SOCIAL WORKER AIDE CPT-65176 Administration single or combination vac cine inc oral 15:56:43 CDT CPT-73634 Influenza split virus > age 3 15:56:43 CDT CPT-52444 Hand comp min 3V 14:25:19 CDT CPT-51195 Postop F/U Visit 21:40:51 CDT CPT-65637 Postop F/U Visit 10:58:43 CDT CPT-60634 Administration single or combination vac cine inc oral 12:33:54 SOCIAL WORKER AIDE CPT-92842 Influenza Preservative Free split virus >age 3 12:33:54 SOCIAL WORKER AIDE CPT-17802 Administration single or combination vac cine inc oral 09:30:51 CDT CPT-35784 Influenza split virus > age 3 09:30:51 CDT CPT-02578 Postop F/U Visit 15:14:53 CDT CPT-96304 Postop F/U Visit 13:50:14 CDT CPT-47909 Postop F/U Visit 13:34:52 CDT CPT-OV Office Visit 16:55:03 CDT CPT-93839 Kotlik of cervix w bx ECC 13:32:50 CDT 10/19 CPT-J1885 Toradol 60 mg (Ketorolac) 15:31:59 CDT 2011 CPT-J1885 Toradol 60 mg (Ketorolac) 15:23:54 CDT 2011 CPT-69755 Visit 11:34:37 SOCIAL WORKER AIDE CPT-22064 Visit 10:52:39 SOCIAL WORKER AIDE CPT-24653 Visit 10:12:02 SOCIAL WORKER AIDE CPT-59202 Visit 11:22:43 SOCIAL WORKER AIDE CPT-55553 Visit 11:24:12 SOCIAL WORKER AIDE CPT-67825 Visit 10:47:05 SOCIAL WORKER AIDE CPT-OV Office Visit 10:26:16 SOCIAL WORKER AIDE CPT-OV Office Visit 15:34:31 SOCIAL WORKER AIDE CPT-69612 Visit 10:42:08 SOCIAL WORKER AIDE CPT-02267 Visit 10:52:45 SOCIAL WORKER AIDE CPT-000 Give Appropriate Flu Vaccine 16:56:41 CDT 2 CPT-21632 Administration single or combination vac cine inc oral 10:33:21 CDT CPT-26244 Influenza split virus > age 3 10:33:21 CDT CPT-81620 Visit 13:23:09 CDT CPT-51964 Visit 18:24:52 CDT CPT-79139 Sono OB comp > 14 weeks 12:07:49 CDT 04/07
--- OUTSIDE RECORDS SUMMARY | 2020-01-18 17:11 | XMS REPORT | Clinical Summary ---
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 Stormy Julian MD FAMILY HISTORY OF ASTHMA ICD-V17.5 Inactive Moni Julian MD LARGE FOR GESTATIONAL AGE ICD-656.60 Inactive Abdirahman Rios MD ENCOUNTER FOR THERAPEUTIC DRUG MONITORING ICD-V58.83 [...] 15 MG TABS 1 tab daily MELOXICAM [id number] Ac jason Julian MD Active PERCOCET 7.5-325 MG TABS 1 PO q 8 hrs PRN pain OXYCODONE-ACETAMINOPHEN 18624815781 No Longer Active Shola MCGILL Active HYDROCODONE-ACETAMINOPHEN 10-325 MG TABS 1 by mouth ev chaka 8 hours as needed for pain HYDROCODONE-ACETAMINOPHEN 68644115564 Active Shola MCGILL Active HYDROCODONE-ACETAMINOPHEN 7.5-325 MG TABS 1 by mouth e very 6 hours as needed for pain HYDROCODONE-ACETAMINOPHEN 72648147462 No Longer Active Good Julian MD Active LC-5 LIDOCAINE 5 % CREA apply 1 time daily to affected area LIDOCAINE (ANORECTAL) 74333082150 Active Shola MCGILL Active CLINDAMYCIN HCL 300 MG CAPS 1 po QID x 7 days CLINDAMYCIN HCL 38910774922 No Longer Active Abdirahman Rios MD Activ e BACTRIM DS 800-160 MG TABS 1 po BID x 7 days 5 SULFAMETHOXAZOLE-TRIMETHOPRIM 07546510889 No Longer Active Abdirahman Rios MD Active ENDOCET 10-325 MG TABS 1 q 6 hr prn OXYCODONE-ACETAMINOPHEN 54287175225 No Longer Active Abdirahman Rios MD Active IBUPROFEN 800 MG TABS 1 tid prn IBUPROFEN 364493 04906 No Longer Active Abdirahman Rios MD Active BACTRIM DS 800-160 MG TABS by mouth twice a day 11/05 SULFAMETHOXAZOLE-TRIMETHOPRIM 00289346548 No Longer Active Good Julian MD Active HYDROCODONE-ACETAMINOPHEN 7.5-325 MG TABS 1 four times a day as needed for pain HYDROCODONE-ACETAMINOPHEN 89024081600 No Longer Activ e Good Julian MD Active KEFLEX 500 MG CAP 1 tab po tid CEPHALEXIN 999978 59857 No Longer Active Hira Moser APRN Active IBUPROFEN 800 MG TAB 1 pill three times daily as needed for pain IBUPROFEN 06629376144 No Longer Active Kalpesh Dong MD Active PROMETHAZINE-CODEINE 6.25-10 MG/5ML SYRP 1 tsp every 6 hrs prn c ough PROMETHAZINE-CODEINE 10403752781 No Longer Active Kalpesh Carr Active ALPRAZOLAM 0.5 MG TABS 1 PO bid PRN ALPRAZOLAM 709086 03430 Active Shola MCGILL Active HYDROCODONE-ACETAMINOPHEN 5-325 MG TABS 1 tab by mouth every 6 hours as needed HYDROCODONE-ACETAMINOPHEN 20510995547 No Longer Activ e Shola MCGILL Active CEPHALEXIN 500 MG CAPS 1 PO bid x 7 days CEPHAL EXIN 37787674224 No Longer Active Shola MCGILL Active BACTRIM DS 800-160 MG TAB 1 tab by mouth twice daily 2 TRIMETHOPRIM-SULFAMETHOXAZOLE 58958284450 No Longer Active Kalpesh Dong MD Active HYDROCODONE-ACETAMINOPHEN 5-325 MG TABS 1 PO tid PRN pain 5 HYDROCODONE-ACETAMINOPHEN 93574889327 No Longer Active Abhinav Galvan MD Active IMPLANON 68 MG IMPL IMPLANTED IN LEFT ARM ETONO GESTREL 49444203743 No Longer Active Jielias Perazal MANAGER INCOME TAX Active AMOXICILLIN 500 MG TABS 2 tabs PO bid x 10 d AM OXICILLIN 69259915819 No Longer Active Kalpesh Dong MD Active LEVAQUIN 500 MG TABS 1 PO q day x 7 days LEVOFL OXACIN 41428313603 No Longer Active Shola MCGILL Active PROAIR HFA 108 (90 BASE) MCG/ACT AERS 2 puff q 4-6 hrs PRN ALBUTEROL SULFATE 18440538072 Active Shola MCGILL Acti ve FIORICET 50-325-40 MG TABS 2 PO q 8 hrs PRN FOSTER [id number] Active Shola MCGILL Active AMITRIPTYLINE HCL 25 MG TAB 1 tab by mouth daily 60 minutes before bedtime AMITRIPTYLINE HCL 91274602053 No Longer Active Shola MCGILL Active LORTAB 5 5-500 MG TABS 1/2 to 1 tablet by mouth go ry 6 hours as needed for pain HYDROCODONE-ACETAMINOPHEN 18309647631 No Longer Active Shola MCGILL Active CEPHALEXIN 500 MG TABS Take one by mouth four times daily, morning, noon, early evening and bedtime. CEPHALEXIN 50956856360 No Long er Active Hira Perazaabel MANAGER INCOME TAX Active TYLENOL/CODEINE #3 300-30 MG TAB 1-2 po q6hr PRN Pain ACETAMINOPHEN-CODEINE 62485387144 No Longer Active Edilberto Marino DO Active PRISTIQ 50 MG [id number] 1 po qd DESVENLAFAXI NE SUCCINATE 68189401579 No Longer Active Edilberto Marino DO Active PENICILLIN V POTASSIUM 500 MG TAB 1 four times a day 2 PENICILLIN V POTASSIUM 82880242334 No Longer Active Edilberto Marino DO Active DOXYCYCLINE HYCLATE 100 MG CAPS Take one (1) tablet by mouth twice a day DOXYCYCLINE HYCLATE 51574835198 No Longer Active Ronnie Galvan MD Active HYDROCODONE-ACETAMINOPHEN 5-325 MG TABS 1 po q 6hr PRN Pain 2011 HYDROCODONE-ACETAMINOPHEN 74191986721 No Longer Active Patri joan Perez RN Active BACTRIM DS 800-160 MG TAB 1 tab by mouth twice daily 2 TRIMETHOPRIM-SULFAMETHOXAZOLE 64753406441 No Longer Active Kalpesh Dong MD Active LORTAB 5 5-500 MG TABS 1/2 to 1 tablet by mouth go ry 4 hours as needed for pain HYDROCODONE-ACETAMINOPHEN 80736532644 No Longer Active Kalpesh Dong MD Active GENERESS FE 0.8-25 MG-MCG CHEW Take one by mouth daily NORETHIN-ETH ESTRADIOL-FE 49294591108 No Longer Active Kalpesh Dong MD Active HYDROCODONE-ACETAMINOPHEN 7.5-500 MG TABS 1-2 every 4 hours as needed HYDROCODONE-ACETAMINOPHEN 95955138043 No Longer Activ e Kalpesh Dong MD Active FERROUS SULFATE 325 (65 FE) MG TABS 1 tablet by mouth twice yung y FERROUS SULFATE 20801098068 No Longer Active Kalpesh Dong MD Active IBUPROFEN 600 MG TAB 1 po q6-8hr PRN IBUPROFEN 55374076449 No Longer Active Kalpesh Dong MD Active SPIRONOLACTONE 25 MG TAB 1 tablet by mouth daily 01/22 SPIRONOLACTONE 24377813790 No Longer Active Kalpesh Dong MD Acti ve HYDROCODONE-ACETAMINOPHEN 7.5-325 MG TABS 1 po QID PRN Pain 2011 HYDROCODONE-ACETAMINOPHEN 59859535836 No Longer Active Kalpesh Dong MD Active CLINDAMYCIN HCL 300 MG CAPS 1 po q6hr x 7 days CLINDAMYCIN HCL 25781060759 No Longer Active Edilberto Marino DO Active PREDNISONE 20 MG TAB 2 tabs daily for 4 days, 1 t ab daily for 4 days, 1/2 tab daily for 4 days PREDNISONE 06952698028 No Longer Active Edilberto Marino DO Active PERCOCET 5-325 MG TABS 1 tablet by mouth every 6 hours as ne eded for pain OXYCODONE-ACETAMINOPHEN 87963449619 No Longer Active Abdirahman Rios MD Active VITAMINS TABS Take one by mouth daily MV & MIN W/FE-FA TABS 43309060213 No Longer Active Abdirahman Rios MD Active LUIS 3-0.02 MG TABS 1 tablet by mouth daily as directed DROSPIRENONE-ETHINYL ESTRADIOL 65479767839 No Longer Active Abdirahman Rios MD Active LORATADINE 10 MG TABS 1 tablet by mouth daily L ORATADINE 53678900914 No Longer Active Kalpesh Dong MD Active HYDROCODONE-ACETAMINOPHEN 5-325 MG TABS 1 po q 6hr PRN Pain 2010 HYDROCODONE-ACETAMINOPHEN 19115091707 No Longer Active Edilberto Marino DO Active BACTRIM DS 800-160 MG TAB 1 tab by mouth twice daily 2 TRIMETHOPRIM-SULFAMETHOXAZOLE 36024528542 No Longer Active Abdirahman Rios MD Active 28-0.8 MG TABS Take one by mouth daily 09/20 VIT-FE FUMARATE-FA 78299003783 No Longer Active Abdirahman Rios MD Active CIPRO 500 MG TAB 1 tablet by mouth twice daily CIPROFLOXACIN HCL 03070328962 No Longer Active Abdirahman Rios MD Active BENADRYL 25 MG CAP 1 po q8hr PRN Congestion DIPHENHYDRAMINE HCL 27739361365 No Longer Active Abdirahman Rios MD Active ZOLOFT 50 MG TAB 1 po qd SERTRALINE HCL 924090 82245 No Longer Active Abdirahman Rios MD Active AMOXICILLIN 875 MG TABS 1 tab by mouth twice daily 201 08/09/13 AMOXICILLIN 85015533657 No Longer Active Abdirahman Rios MD Activ e AMOXICILLIN 875 MG TABS 1 tab by mouth twice daily 201 07/19/27 AMOXICILLIN 30793310345 No Longer Active Abdirahman Rios MD Activ e BACTRIM DS 800-160 MG TAB 2 tab by mouth twice daily 2 TRIMETHOPRIM-SULFAMETHOXAZOLE 91428140699 No Longer Active Abdirahman Rios MD Active KEFLEX 500 MG CAP 1 po tid x 10 days CEPHALEXIN 43766197380 No Longer Active Abdirahman Rios MD Active AMOXICILLIN 875 MG TABS 1 tab by mouth twice daily 201 07/18/07 AMOXICILLIN 30531687241 No Longer Active Abdirahman Rios MD Activ e BACTRIM DS 800-160 MG TAB 2 tab by mouth twice daily 2 BACTRIM DS 800-160 MG TAB TRIMETHOPRIM-SULFAMETHOXAZOLE Inactive ZOLOFT 50 MG TAB 1 po qd ZOLOFT 50 MG TAB 3129 41 SERTRALINE HCL Inactive BENADRYL 25 MG CAP 1 po q8hr PRN Congestion BENADRYL 25 MG CAP 3036651 DIPHENHYDRAMINE HCL Inactive 28-0.8 MG TABS Take one by mouth daily 09/20 28-0.8 MG TABS VIT-FE FUMARATE-FA Inactive HYDROCODONE-ACETAMINOPHEN 5-325 MG TABS 1 po q 6hr PRN Pain 2010 HYDROCODONE-ACETAMINOPHEN 5-325 MG TABS 918606 HYDROCODONE-ACETAMINOPHEN Inactive LORATADINE 10 MG TABS 1 tablet by mouth daily LORATADINE 10 MG TABS 917774 LORATADINE Inactive LUIS 3-0.02 MG TABS 1 tablet by mouth daily as directed LUIS 3-0.02 MG TABS DROSPIRENONE-ETHINYL ESTRADIOL Inactive VITAMINS TABS Take one by mouth daily VITAMINS TABS MV & MIN W/FE-FA TABS Inactive PERCOCET 5-325 MG TABS 1 tablet by mouth every 6 hours as ne eded for pain PERCOCET 5-325 MG TABS 3820124 OXYCODONE-ACETAMIN OPHEN Inactive PREDNISONE 20 MG TAB 2 tabs daily for 4 days, 1 t ab daily for 4 days, 1/2 tab daily for 4 days PREDNISONE 20 MG TAB 950699 PREDNISON E Inactive CLINDAMYCIN HCL 300 MG CAPS 1 po q6hr x 7 days CLINDAMYCIN HCL 300 MG CAPS 772672 CLINDAMYCIN HCL Inactive HYDROCODONE-ACETAMINOPHEN 7.5-325 MG TABS 1 po QID PRN Pain 2011 HYDROCODONE-ACETAMINOPHEN 7.5-325 MG TABS 127897 HYDROCODONE-ACETAMINOPHEN Inactive SPIRONOLACTONE 25 MG TAB 1 tablet by mouth daily 01/22 SPIRONOLACTONE 25 MG TAB 237338 SPIRONOLACTONE Inactive IBUPROFEN 600 MG TAB 1 po q6-8hr PRN IBUPROFEN 600 MG TAB 313759 IBUPROFEN Inactive FERROUS SULFATE 325 (65 FE) MG TABS 1 tablet by mouth twice yung y FERROUS SULFATE 325 (65 FE) MG TABS 019011 FERROUS SULF ATE Inactive HYDROCODONE-ACETAMINOPHEN 7.5-500 MG [...] PRN Pain 2011 HYDROCODONE-ACETAMINOPHEN 5-325 MG TABS 641125 HYDROCODONE-ACETAMINOPHEN Inactive DOXYCYCLINE HYCLATE 100 MG CAPS Take one (1) tablet by mouth twice a day DOXYCYCLINE HYCLATE 100 MG CAPS 163196 DOXYCYCLINE HYCLATE Inactive PENICILLIN V POTASSIUM 500 MG TAB 1 four times a day 2 PENICILLIN V POTASSIUM 500 MG TAB 316229 PENICILLIN V POTASSIUM Siri ctive PRISTIQ 50 MG [id number] 1 po qd PRISTIQ 50 MG [id number] DESVENLAFAXINE SUCCINATE Inactive TYLENOL/CODEINE #3 300-30 MG TAB 1-2 po q6hr PRN Pain TYLENOL/CODEINE #3 300-30 MG TAB 190630 ACETAMINOPHEN-CODEINE Inact krishna CEPHALEXIN 500 MG TABS Take one by mouth four times daily, morning, noon, early evening and bedtime. CEPHALEXIN 500 MG TABS 196659 CEPHALEXIN Inactive LORTAB 5 5-500 MG TABS 1/2 to 1 tablet by mouth go ry 6 hours as needed for pain LORTAB 5 5-500 MG TABS HYDROCODONE-A CETAMINOPHEN Inactive AMITRIPTYLINE HCL 25 MG TAB 1 tab by mouth daily 60 minutes before bedtime AMITRIPTYLINE HCL 25 MG TAB 560404 AMITRIPTYLINE HCL Inactive AMOXICILLIN 500 MG TABS 2 tabs PO bid x 10 d 7 AMOXICILLIN 500 MG TABS 454800 AMOXICILLIN Inactive IMPLANON 68 MG IMPL IMPLANTED IN LEFT ARM IMPLANON 68 MG IMPL ETONOGESTREL Inactive HYDROCODONE-ACETAMINOPHEN 5-325 MG TABS 1 PO tid PRN pain 5 HYDROCODONE-ACETAMINOPHEN 5-325 MG TABS 928729 HYDROCODONE-ACETAMIN OPHEN Inactive BACTRIM DS 800-160 MG TAB 1 tab by mouth twice daily 2 BACTRIM DS 800-160 MG TAB TRIMETHOPRIM-SULFAMETHOXAZOLE Inac tive CEPHALEXIN 500 MG CAPS 1 PO bid x 7 days CEPHALEXIN 500 MG CAPS 115209 CEPHALEXIN Inactive HYDROCODONE-ACETAMINOPHEN 5-325 MG TABS 1 tab by mouth every 6 hours as needed HYDROCODONE-ACETAMINOPHEN 5-325 MG TABS 537241 HYDROCODONE-ACETAMINOPHEN Inactive PROMETHAZINE-CODEINE 6.25-10 MG/5ML SYRP 1 tsp every 6 hrs prn c ough PROMETHAZINE-CODEINE 6.25-10 MG/5ML SYRP 993423 PROMETH AZINE-CODEINE Inactive IBUPROFEN 800 MG TAB 1 pill three times daily as needed for pain IBUPROFEN 800 MG TAB 231358 IBUPROFEN Inactive KEFLEX 500 MG CAP 1 tab po tid KEFLEX 500 MG CAP 854151 CEPHALEXIN Inactive HYDROCODONE-ACETAMINOPHEN 7.5-325 MG TABS 1 four times a day as needed for pain HYDROCODONE-ACETAMINOPHEN 7.5-325 MG TABS 844473 HYDROCODONE-ACETAMINOPHEN Inactive BACTRIM DS 800-160 MG TABS by mouth twice a day 11/05 BACTRIM DS 800-160 MG TABS SULFAMETHOXAZOLE-TRIMETHOPRIM Inactive IBUPROFEN 800 MG TABS 1 tid prn IBUPROFEN 800 MG TABS 412798 IBUPROFEN Inactive ENDOCET 10-325 MG TABS 1 q 6 hr prn ENDOC ET 10-325 MG TABS 7220682 OXYCODONE-ACETAMINOPHEN Inactive HYDROCODONE-ACETAMINOPHEN 7.5-325 MG TABS 1 by mouth e very 6 hours as needed for pain HYDROCODONE-ACETAMINOPHEN 7.5-325 MG TABS 235254 HYDROCODONE-ACETAMINOPHEN Inactive PERCOCET 7.5-325 MG TABS 1 PO q 8 hrs PRN pain PERCOCET 7.5-325 MG TABS 2293539 OXYCODONE-ACETAMINOPHEN Inactive AMOXICILLIN 875 MG TABS 1 tab by mouth twice daily 201 07/18/07 AMOXICILLIN 875 MG TABS 014004 AMOXICILLIN Inactive KEFLEX 500 MG CAP 1 po tid x 10 days KEFLEX 500 MG CAP 607893 CEPHALEXIN Inactive AMOXICILLIN 875 MG TABS 1 tab by mouth twice daily 201 07/19/27 AMOXICILLIN 875 MG TABS 881967 AMOXICILLIN Inactive AMOXICILLIN 875 MG TABS 1 tab by mouth twice daily 201 08/09/13 AMOXICILLIN 875 MG TABS 361449 AMOXICILLIN Inactive CIPRO 500 MG TAB 1 tablet by mouth twice daily CIPRO 500 MG TAB 910373 CIPROFLOXACIN HCL Inactive BACTRIM DS 800-160 MG TAB 1 tab by mouth twice daily 2 BACTRIM DS 800-160 MG TAB TRIMETHOPRIM-SULFAMETHOXAZOLE Inac tive LEVAQUIN 500 MG TABS 1 PO q day x 7 days LEVAQUIN 500 MG TABS 997052 LEVOFLOXACIN Inactive CLINDAMYCIN HCL 300 MG CAPS 1 po QID x 7 days CLINDAMYCIN HCL 300 MG CAPS 282859 CLINDAMYCIN HCL Inactive Advance Directives Directive Description Start Date PERMISSION TO SHARE Immunizations Vaccine Administration Date Value Standard Alf cription Seasonal influenza vaccine, injectable, containing preservative, for > 3 years old (Afluria, FluLaval, Fluzone, Fluvirin, Fluarix, Agriflu(>= 18 yo)) Fluzone (>3 yrs.) [[id number]] Influenza, seasonal, inject able Seasonal influenza vaccine, injectable, preservative free, for > 3 years old (Afluria, FluLaval, Fluzone, Fluvirin, Fluarix, Agriflu(>= 18 yo)) Fluzone preservative free (>3 yrs.) [[id number]] Influenza, seasonal, injectable, preservative free Seasonal influenza vaccine, injectable, containing preservative, for > 3 years old (Afluria, FluLaval, Fluzone, Fluvirin, Fluarix, Agriflu(>= 18 yo)) Fluzone (>3 yrs.) [[id number]] Influenza, seasonal, inject able Seasonal influenza vaccine, injectable, containing preservative, for > 3 years old (Afluria, FluLaval, Fluzone, Fluvirin, Fluarix, Agriflu(>= 18 yo)) Fluzone (>3 yrs.) [[id number]] Influenza, seasonal, inject able dT (Diphtheria and [...] Outside labs entered on flowsheet - Hematology mean corpuscular volume, RBC 82.4 fL hematocrit, blood 42.6 % hemoglobin, blood 14.2 g/dL erythrocyte (RBC) count 5.2 10*6/mm3 leukocyte count, blood 8.3 10*3/mm3 mean corpuscular hemoglobin, RBC 27.5 pg red blood cell distribution width 12.9 % platelet count 316 10*3/mm3 Lab Report: CBC W/DIFF, Comp. Metabolic Panel, Thyroid Stimulating Hormo ... - Chemistry protein, total urine random Negative mg/dL Negative RBC, urine, dipstick Negative Negative sodium, serum 140 mmol/L 734-229 0118/02/24 potassium, serum 4.3 mmol/L 3.5-5.2 chloride, serum [...] 0.36-3.74 thyroxine, serum, free 0.80 ng/dL 0.76-1.46 Lab Report: CBC W/DIFF, Comp. Metabolic Panel, Thyroid Stimulating Hormo ... - Hematology leukocyte count, blood 7.4 10^3/MM^3 10*3/mm3 4.6-10.2 hematocrit, blood 44.1 % 36.0-46.0 mean corpuscular volume, RBC 85 fL 80-97 mean corpuscular hemoglobin, RBC 28.7 pg 27. 0-31.2 mean corpuscular hemoglobin concentration, RBC 33.9 G/DL % 31.8-35.4 red blood cell distribution width 13.9 % 11 .6-14.8 platelet count 307 10^3/MM^3 10*3/mm3 425-211 5479/02/24 neutrophils as percent of blood leukocytes 57.3 % 42.2-75.2 monocytes as percent of blood leukocytes 8.1 % 1.7-9.3 lymphocytes as percent of blood leukocytes 31.0 % 20.5-51.1 erythrocyte (RBC) count 5.20 10^6/MM^3 10*6/mm3 4.04-5.4 8 hemoglobin, blood 14.9 g/dL 12.0-16.0 Lab Report: CBC W/DIFF, Comp. Metabolic Panel, [...] 4.3-6.0 Lab Report: T3, TOTAL, INSULIN - Robotic Technician ry triiodothyronine, serum 78 ng/dL 76-181 Lab [...] mg/dL Encounters Code Encounter Date Provider Facility CPT-44100 Level 3 Est. Patient 19:34:46 CDT Shola Wright [facility] CPT-35164 Level 3 Est. Patient 14:19:37 CDT Abdirahman Rios MD [facility] CPT-43141 Level 3 Est. Patient 14:11:58 CDT Kalpesh goins MD [facility] CPT-27319 Level 3 Est. Patient 16:50:00 CDT Michelle MERCADO [facility] CPT-57369 Level 3 Est. Patient 17:11:32 MIXING TUMBLER OPERATOR Brandie bates MD PhD [facility] CPT-58463 Level 3 Est. Patient 16:31:47 MIXING TUMBLER OPERATOR Shola Wright [facility] CPT-83090 Level 3 Est. Patient 17:51:10 MIXING TUMBLER OPERATOR Abhinav Galvan MD [facility] CPT-52348 Level 4 Est. Patient 12:54:56 MIXING TUMBLER OPERATOR Kalpesh goins MD [facility] CPT-89888 Level 4 Est. Patient 12:53:56 MIXING TUMBLER OPERATOR Kalpesh goins MD [facility] CPT-00623 Level 3 Est. Patient 17:56:58 CDT Shola rWight [facility] CPT-09717 Level 3 Est. Patient 14:26:20 CDT Janak butcher [facility] CPT-59130 Level 3 Est. Patient 09:38:41 CDT Shola Wright [facility] CPT-31409 Level 3 Est. Patient 14:45:26 CDT Edilberto tiwari [facility] CPT-67699 Level 3 Est. Patient 10:51:33 [facility] Est. Patient 11:57:55 MIXING TUMBLER OPERATOR Shola Thao Adriana [facility] CPT-10997 Level 3 Est. Patient 09:53:33 MIXING TUMBLER OPERATOR Edilberto tiwari [facility] CPT-77279 Level 3 Est. Patient 14:42:54 MIXING TUMBLER OPERATOR Abhinav Galvan MD [facility] CPT-67414 Level 3 Est. Patient 15:10:02 CDT Janak butcher [facility] CPT-74376 Level 3 Est. Patient 15:20:20 CDT Theo dennis MD [facility]-66794 Level 2 Est. Patient 14:08:57 CDT Kalpesh goins MD [facility] CPT-69581 Level 3 Est. Patient 13:56:19 CDT Abdirahman Rios MD [facility] CPT-03560 Level 3 Est. Patient 13:59:37 CDT Abdirahman Rios MD [facility] CPT-52764 Level 2 Est. Patient 14:44:59 CDT Kalpesh goins MD [facility]-75473 Level 3 Est. Patient 06:06:23 CDT Edilberto tiwari [facility] CPT-34109 Level 3 Est. Patient 15:23:54 CDT Abdirahman Rios MD [facility] CPT-66599 Level 3 Est. Patient 15:43:49 CDT Abdirahman Rios MD [facility] CPT-54697 Level 3 Est. Patient 12:46:47 MIXING TUMBLER OPERATOR Abdirahman Rios MD [facility] CPT-87293 Level 3 Est. Patient 08:13:35 MIXING TUMBLER OPERATOR Abdirahman Rios MD [facility] CPT-97164 Level 2 Est. Patient 09:36:42 MIXING TUMBLER OPERATOR Abdirahman Rios MD [facility] CPT-65983 Level 3 Est. Patient 10:56:43 CDT Abdirahman Rios MD [facility] CPT-21695 Level 3 Est. Patient 18:24:52 CDT Abdirahman Rios MD [facility] CPT-61633 Level 3 Est. Patient 13:27:22 CDT Abdirahman Rios MD [facility] Procedures Code Procedure Name Date Entry Date Standard Desc ription CPT-88210 Immunization Single Admin 16:41:53 CDT 2013 CPT-26483 Fluzone Quadrivalent Intramuscular Suspe nsion 0.5 ML 16:41:53 CDT CPT-OV Office Visit 16:39:18 CDT CPT-OV Office Visit 16:16:36 CDT CPT-OV Office Visit 15:34:48 CDT CPT-36008 Postop F/U Visit 14:50:12 CDT CPT-53309 Postop F/U Visit 14:41:10 CDT CPT-42978 Venipuncture Draw Fee 11:38:04 MIXING TUMBLER OPERATOR CPT-26035 Postop F/U Visit 19:02:59 MIXING TUMBLER OPERATOR CPT-39505 Postop F/U Visit 12:04:54 MIXING TUMBLER OPERATOR CPT-85568 Administration single or combination vac cine inc oral 15:56:43 CDT CPT-75301 Influenza split virus > age 3 15:56:43 CDT CPT-21161 Hand comp min 3V 14:25:19 CDT CPT-57065 Postop F/U Visit 21:40:51 CDT CPT-80092 Postop F/U Visit 10:58:43 CDT CPT-72884 Administration single or combination vac cine inc oral 12:33:54 MIXING TUMBLER OPERATOR CPT-76626 Influenza Preservative Free split virus >age 3 12:33:54 MIXING TUMBLER OPERATOR CPT-80690 Administration single or combination vac cine inc oral 09:30:51 CDT CPT-34509 Influenza split virus > age 3 09:30:51 CDT CPT-92829 Postop F/U Visit 15:14:53 CDT CPT-26672 Postop F/U Visit 13:50:14 CDT CPT-19996 Postop F/U Visit 13:34:52 CDT CPT-OV Office Visit 16:55:03 CDT CPT-84369 [place] of cervix w bx ECC 13:32:50 CDT 10/19 CPT-J1885 Toradol 60 mg (Ketorolac) 15:31:59 CDT 2011 CPT-J1885 Toradol 60 mg (Ketorolac) 15:23:54 CDT 2011 CPT-73353 Visit 11:34:37 MIXING TUMBLER OPERATOR CPT-49607 Visit 10:52:39 MIXING TUMBLER OPERATOR CPT-79437 Visit 10:12:02 MIXING TUMBLER OPERATOR CPT-28885 Visit 11:22:43 MIXING TUMBLER OPERATOR CPT-57456 Visit 11:24:12 MIXING TUMBLER OPERATOR CPT-11781 Visit 10:47:05 MIXING TUMBLER OPERATOR CPT-OV Office Visit 10:26:16 MIXING TUMBLER OPERATOR CPT-OV Office Visit 15:34:31 MIXING TUMBLER OPERATOR CPT-02041 Visit 10:42:08 MIXING TUMBLER OPERATOR CPT-02625 Visit 10:52:45 MIXING TUMBLER OPERATOR CPT-000 Give Appropriate Flu Vaccine 16:56:41 CDT 2 CPT-41450 Administration single or combination vac cine inc oral 10:33:21 CDT CPT-11973 Influenza split virus > age 3 10:33:21 CDT CPT-60556 Visit 13:23:09 CDT CPT-14279 Visit 18:24:52 CDT CPT-68916 Sono OB comp > 14 weeks 12:07:49 CDT 04/07
--- OUTSIDE RECORDS SUMMARY | 2020-01-18 17:12 | XMS REPORT | Clinical Summary ---
Author Author Admin, Jeri Rashid Organization [facility] Address Unknown Phone Unavailable Allergies, Adverse [...] Rios MD VAGINAL DISCHARGE ICD-623.5 Inactive Abdirahman sancehz MD URETHRITIS ICD-597.80 Inactive Good melchor MD [...] 12 hrs, off for 12 hrs. LIDOCAINE [id number] Active Kate Arredondo A ctive CYCLOBENZAPRINE HCL 10 MG TABS 1/2 - 1 tab PO tid PRN back p ain, muscle spasm CYCLOBENZAPRINE HCL 27801191671 Active Kate Arredondo Active PERCOCET 7.5-325 MG TABS 1 PO tid PRN pain OXYC ODONE-ACETAMINOPHEN 28375322989 Active Kate Arredondo Active MOBIC 15 MG TABS 1 tab daily MELOXICAM 01003709631 Ac tive Good Julian MD Active PERCOCET 7.5-325 MG TABS 1 PO q 8 hrs PRN pain OXYCODONE-ACETAMINOPHEN 55382270835 No Longer Active Shola MCGILL Active HYDROCODONE-ACETAMINOPHEN 10-325 MG TABS 1 by mouth ev chaka 8 hours as needed for pain HYDROCODONE-ACETAMINOPHEN 85004778707 Active Shola MCGILL Active HYDROCODONE-ACETAMINOPHEN 7.5-325 MG TABS 1 by mouth e very 6 hours as needed for pain HYDROCODONE-ACETAMINOPHEN 27373232742 No Longer Active Good Julian MD Active LC-5 LIDOCAINE 5 % CREA apply 1 time daily to affected area LIDOCAINE (ANORECTAL) 71749281853 Active Shola MCGILL Active CLINDAMYCIN HCL 300 MG CAPS 1 po QID x 7 days CLINDAMYCIN HCL 46050581303 No Longer Active Abdirahman Rios MD Activ e BACTRIM DS 800-160 MG TABS 1 po BID x 7 days 5 SULFAMETHOXAZOLE-TRIMETHOPRIM 63075283033 No Longer Active Abdirahman Rios MD Active ENDOCET 10-325 MG TABS 1 q 6 hr prn OXYCODONE-ACETAMINOPHEN 52467234587 No Longer Active Abdirahman Rios MD Active IBUPROFEN 800 MG TABS 1 tid prn IBUPROFEN 403400 01010 No Longer Active Abdirahman Rios MD Active BACTRIM DS 800-160 MG TABS by mouth twice a day 11/05 SULFAMETHOXAZOLE-TRIMETHOPRIM 18359957870 No Longer Active Good Julian MD Active HYDROCODONE-ACETAMINOPHEN 7.5-325 MG TABS 1 four times a day as needed for pain HYDROCODONE-ACETAMINOPHEN 32181138271 No Longer Activ e Good Julian MD Active KEFLEX 500 MG CAP 1 tab po tid CEPHALEXIN 420080 46827 No Longer Active Jillina Frazell BOAT REPAIRER Active IBUPROFEN 800 MG TAB 1 pill three times daily as needed for pain IBUPROFEN 54501514866 No Longer Active Kalpesh Dong MD Active PROMETHAZINE-CODEINE 6.25-10 MG/5ML SYRP 1 tsp every 6 hrs prn c ough PROMETHAZINE-CODEINE 84460822187 No Longer Active Kalpesh Carr Active ALPRAZOLAM 0.5 MG TABS 1 PO bid PRN ALPRAZOLAM 197893 49021 Active Shola MCGILL Active HYDROCODONE-ACETAMINOPHEN 5-325 MG TABS 1 tab by mouth every 6 hours as needed HYDROCODONE-ACETAMINOPHEN 16048703058 No Longer Activ e Shola MCGILL Active CEPHALEXIN 500 MG CAPS 1 PO bid x 7 days CEPHAL EXIN 23335382614 No Longer Active Shola MCGILL Active BACTRIM DS 800-160 MG TAB 1 tab by mouth twice daily 2 TRIMETHOPRIM-SULFAMETHOXAZOLE 76290067247 No Longer Active Kalpesh Dong MD Active HYDROCODONE-ACETAMINOPHEN 5-325 MG TABS 1 PO tid PRN pain 5 HYDROCODONE-ACETAMINOPHEN 04946252479 No Longer Active Abhinav Galvan MD Active IMPLANON 68 MG IMPL IMPLANTED IN LEFT ARM ETONO GESTREL 60366402680 No Longer Active Hira Moser APRN Active AMOXICILLIN 500 MG TABS 2 tabs PO bid x 10 d AM OXICILLIN 58409984813 No Longer Active Kalpesh Dong MD Active LEVAQUIN 500 MG TABS 1 PO q day x 7 days LEVOFL OXACIN 15476990078 No Longer Active Shola MCGILL Active PROAIR HFA 108 (90 BASE) MCG/ACT AERS 2 puff q 4-6 hrs PRN ALBUTEROL SULFATE 30725235247 Active Shola MCGILL Acti ve FIORICET 50-325-40 MG TABS 2 PO q 8 hrs PRN FOSTER [id number] Active Shola MCGILL Active AMITRIPTYLINE HCL 25 MG TAB 1 tab by mouth daily 60 minutes before bedtime AMITRIPTYLINE HCL 65819051249 No Longer Active Shola MCGILL Active LORTAB 5 5-500 MG TABS 1/2 to 1 tablet by mouth go ry 6 hours as needed for pain HYDROCODONE-ACETAMINOPHEN 61837293048 No Longer Active Shola MCGILL Active CEPHALEXIN 500 MG TABS Take one by mouth four times daily, morning, noon, early evening and bedtime. CEPHALEXIN 86586946104 No Long er Active Hira Moser BOAT REPAIRER Active TYLENOL/CODEINE #3 300-30 MG TAB 1-2 po q6hr PRN Pain ACETAMINOPHEN-CODEINE 89118807017 No Longer Active Edilberto Marino DO Active PRISTIQ 50 MG [id number] 1 po qd DESVENLAFAXI NE SUCCINATE 31393590550 No Longer Active Edilberto Marino DO Active PENICILLIN V POTASSIUM 500 MG TAB 1 four times a day 2 PENICILLIN V POTASSIUM 65209603243 No Longer Active Edilberto Marino DO Active DOXYCYCLINE HYCLATE 100 MG CAPS Take one (1) tablet by mouth twice a day DOXYCYCLINE HYCLATE 78479639619 No Longer Active Ronnie Galvan MD Active HYDROCODONE-ACETAMINOPHEN 5-325 MG TABS 1 po q 6hr PRN Pain 2011 HYDROCODONE-ACETAMINOPHEN 55977808819 No Longer Active Jerson Perez RN Active BACTRIM DS 800-160 MG TAB 1 tab by mouth twice daily 2 TRIMETHOPRIM-SULFAMETHOXAZOLE 39567249538 No Longer Active Kalpesh Dong MD Active LORTAB 5 5-500 MG TABS 1/2 to 1 tablet by mouth go ry 4 hours as needed for pain HYDROCODONE-ACETAMINOPHEN 12795423997 No Longer Active Kalpesh Dong MD Active GENERESS FE 0.8-25 MG-MCG CHEW Take one by mouth daily NORETHIN-ETH ESTRADIOL-FE 90002156443 No Longer Active Kalpesh Dong MD Active HYDROCODONE-ACETAMINOPHEN 7.5-500 MG TABS 1-2 every 4 hours as needed HYDROCODONE-ACETAMINOPHEN 61140576558 No Longer Activ e Kalpesh Dong MD Active FERROUS SULFATE 325 (65 FE) MG TABS 1 tablet by mouth twice yung y FERROUS SULFATE 38641482304 No Longer Active Kalpesh Dong MD Active IBUPROFEN 600 MG TAB 1 po q6-8hr PRN IBUPROFEN 36929888802 No Longer Active Kalpesh Dong MD Active SPIRONOLACTONE 25 MG TAB 1 tablet by mouth daily 01/22 SPIRONOLACTONE 40885297023 No Longer Active Kalpesh Dong MD Acti ve HYDROCODONE-ACETAMINOPHEN 7.5-325 MG TABS 1 po QID PRN Pain 2011 HYDROCODONE-ACETAMINOPHEN 47308047302 No Longer Active Kalpesh Dong MD Active CLINDAMYCIN HCL 300 MG CAPS 1 po q6hr x 7 days CLINDAMYCIN HCL 98888321719 No Longer Active Edilberto Marino DO Active PREDNISONE 20 MG TAB 2 tabs daily for 4 days, 1 t ab daily for 4 days, 1/2 tab daily for 4 days PREDNISONE 07288858287 No Longer Active dEilberto Marino DO Active PERCOCET 5-325 MG TABS 1 tablet by mouth every 6 hours as ne eded for pain OXYCODONE-ACETAMINOPHEN 25852726935 No Longer Active Abdirahman Rios MD Active VITAMINS TABS Take one by mouth daily MV & MIN W/FE-FA TABS 09878160802 No Longer Active Abdirahman Rios MD Active LUIS 3-0.02 MG TABS 1 tablet by mouth daily as directed DROSPIRENONE-ETHINYL ESTRADIOL 07631591733 No Longer Active Abdirahman Rios MD Active LORATADINE 10 MG TABS 1 tablet by mouth daily L ORATADINE 03562960497 No Longer Active Kalpesh Dong MD Active HYDROCODONE-ACETAMINOPHEN 5-325 MG TABS 1 po q 6hr PRN Pain 2010 HYDROCODONE-ACETAMINOPHEN 16923481385 No Longer Active Edilberto Marino DO Active BACTRIM DS 800-160 MG TAB 1 tab by mouth twice daily 2 TRIMETHOPRIM-SULFAMETHOXAZOLE 74728073186 No Longer Active Adbirahman Rios MD Active 28-0.8 MG TABS Take one by mouth daily 09/20 VIT-FE FUMARATE-FA 66705030576 No Longer Active Abdirahman Rios MD Active CIPRO 500 MG TAB 1 tablet by mouth twice daily CIPROFLOXACIN HCL 08226201058 No Longer Active Abdirahman Rios MD Active BENADRYL 25 MG CAP 1 po q8hr PRN Congestion DIPHENHYDRAMINE HCL 37924692020 No Longer Active Abdirahman Rios MD Active ZOLOFT 50 MG TAB 1 po qd SERTRALINE HCL 325377 28709 No Longer Active Abdirahman Rios MD Active AMOXICILLIN 875 MG TABS 1 tab by mouth twice daily 201 08/09/13 AMOXICILLIN 00856177356 No Longer Active Abdirahman Rios MD Activ e AMOXICILLIN 875 MG TABS 1 tab by mouth twice daily 201 07/19/27 AMOXICILLIN 98187303965 No Longer Active Abdirahman Rios MD Activ e BACTRIM DS 800-160 MG TAB 2 tab by mouth twice daily 2 TRIMETHOPRIM-SULFAMETHOXAZOLE 54937523122 No Longer Active Abdirahman Rios MD Active KEFLEX 500 MG CAP 1 po tid x 10 days CEPHALEXIN 95376789416 No Longer Active Abdirahman Rios MD Active AMOXICILLIN 875 MG TABS 1 tab by mouth twice daily 201 07/18/07 AMOXICILLIN 01543128531 No Longer Active Abdirahman Rios MD Activ e BACTRIM DS 800-160 MG TAB 2 tab by mouth twice daily 2 BACTRIM DS 800-160 MG TAB TRIMETHOPRIM-SULFAMETHOXAZOLE Inactive ZOLOFT 50 MG TAB 1 po qd ZOLOFT 50 MG TAB 3129 41 SERTRALINE HCL Inactive BENADRYL 25 MG CAP 1 po q8hr PRN Congestion BENADRYL 25 MG CAP 5995500 DIPHENHYDRAMINE HCL Inactive 28-0.8 MG TABS Take one by mouth daily 09/20 28-0.8 MG TABS VIT-FE FUMARATE-FA Inactive HYDROCODONE-ACETAMINOPHEN 5-325 MG TABS 1 po q 6hr PRN Pain 2010 HYDROCODONE-ACETAMINOPHEN 5-325 MG TABS 884487 HYDROCODONE-ACETAMINOPHEN Inactive LORATADINE 10 MG TABS 1 tablet by mouth daily LORATADINE 10 MG TABS 849112 LORATADINE Inactive LUIS 3-0.02 MG TABS 1 tablet by mouth daily as directed LUIS 3-0.02 MG TABS DROSPIRENONE-ETHINYL ESTRADIOL Inactive VITAMINS TABS Take one by mouth daily VITAMINS TABS MV & MIN W/FE-FA TABS Inactive PERCOCET 5-325 MG TABS 1 tablet by mouth every 6 hours as ne eded for pain PERCOCET 5-325 MG TABS 7203631 OXYCODONE-ACETAMIN OPHEN Inactive PREDNISONE 20 MG TAB 2 tabs daily for 4 days, 1 t ab daily for 4 days, 1/2 tab daily for 4 days PREDNISONE 20 MG TAB 744902 PREDNISON E Inactive CLINDAMYCIN HCL 300 MG CAPS 1 po q6hr x 7 days CLINDAMYCIN HCL 300 MG CAPS 761573 CLINDAMYCIN HCL Inactive HYDROCODONE-ACETAMINOPHEN 7.5-325 MG TABS 1 po QID PRN Pain 2011 HYDROCODONE-ACETAMINOPHEN 7.5-325 MG TABS 449684 HYDROCODONE-ACETAMINOPHEN Inactive SPIRONOLACTONE 25 MG TAB 1 tablet by mouth daily 01/22 SPIRONOLACTONE 25 MG TAB 396942 SPIRONOLACTONE Inactive IBUPROFEN 600 MG TAB 1 po q6-8hr PRN IBUPROFEN 600 MG TAB 964031 IBUPROFEN Inactive FERROUS SULFATE 325 (65 FE) MG TABS 1 tablet by mouth twice yung y FERROUS SULFATE 325 (65 FE) MG TABS 997484 FERROUS SULF ATE Inactive HYDROCODONE-ACETAMINOPHEN 7.5-500 MG [...] PRN Pain 2011 HYDROCODONE-ACETAMINOPHEN 5-325 MG TABS 154864 HYDROCODONE-ACETAMINOPHEN Inactive DOXYCYCLINE HYCLATE 100 MG CAPS Take one (1) tablet by mouth twice a day DOXYCYCLINE HYCLATE 100 MG CAPS 275417 DOXYCYCLINE HYCLATE Inactive PENICILLIN V POTASSIUM 500 MG TAB 1 four times a day 2 PENICILLIN V POTASSIUM 500 MG TAB 692733 PENICILLIN V POTASSIUM [place] ctive PRISTIQ 50 MG [id number] 1 po qd PRISTIQ 50 MG [id number] DESVENLAFAXINE SUCCINATE Inactive TYLENOL/CODEINE #3 300-30 MG TAB 1-2 po q6hr PRN Pain TYLENOL/CODEINE #3 300-30 MG TAB 267130 ACETAMINOPHEN-CODEINE Inact krishna CEPHALEXIN 500 MG TABS Take one by mouth four times daily, morning, noon, early evening and bedtime. CEPHALEXIN 500 MG TABS 347268 CEPHALEXIN Inactive LORTAB 5 5-500 MG TABS 1/2 to 1 tablet by mouth go ry 6 hours as needed for pain LORTAB 5 5-500 MG TABS HYDROCODONE-A CETAMINOPHEN Inactive AMITRIPTYLINE HCL 25 MG TAB 1 tab by mouth daily 60 minutes before bedtime AMITRIPTYLINE HCL 25 MG TAB 822127 AMITRIPTYLINE HCL Inactive AMOXICILLIN 500 MG TABS 2 tabs PO bid x 10 d 7 AMOXICILLIN 500 MG TABS 312840 AMOXICILLIN Inactive IMPLANON 68 MG IMPL IMPLANTED IN LEFT ARM IMPLANON 68 MG IMPL ETONOGESTREL Inactive HYDROCODONE-ACETAMINOPHEN 5-325 MG TABS 1 PO tid PRN pain 5 HYDROCODONE-ACETAMINOPHEN 5-325 MG TABS 492940 HYDROCODONE-ACETAMIN OPHEN Inactive BACTRIM DS 800-160 MG TAB 1 tab by mouth twice daily 2 BACTRIM DS 800-160 MG TAB TRIMETHOPRIM-SULFAMETHOXAZOLE Inac tive CEPHALEXIN 500 MG CAPS 1 PO bid x 7 days CEPHALEXIN 500 MG CAPS 325266 CEPHALEXIN Inactive HYDROCODONE-ACETAMINOPHEN 5-325 MG TABS 1 tab by mouth every 6 hours as needed HYDROCODONE-ACETAMINOPHEN 5-325 MG TABS 405509 HYDROCODONE-ACETAMINOPHEN Inactive PROMETHAZINE-CODEINE 6.25-10 MG/5ML SYRP 1 tsp every 6 hrs prn c ough PROMETHAZINE-CODEINE 6.25-10 MG/5ML SYRP 126352 PROMETH AZINE-CODEINE Inactive IBUPROFEN 800 MG TAB 1 pill three times daily as needed for pain IBUPROFEN 800 MG TAB 790669 IBUPROFEN Inactive KEFLEX 500 MG CAP 1 tab po tid KEFLEX 500 MG CAP 310594 CEPHALEXIN Inactive HYDROCODONE-ACETAMINOPHEN 7.5-325 MG TABS 1 four times a day as needed for pain HYDROCODONE-ACETAMINOPHEN 7.5-325 MG TABS 908117 HYDROCODONE-ACETAMINOPHEN Inactive BACTRIM DS 800-160 MG TABS by mouth twice a day 11/05 BACTRIM DS 800-160 MG TABS SULFAMETHOXAZOLE-TRIMETHOPRIM Inactive IBUPROFEN 800 MG TABS 1 tid prn IBUPROFEN 800 MG TABS 625190 IBUPROFEN Inactive ENDOCET 10-325 MG TABS 1 q 6 hr prn ENDOC ET 10-325 MG TABS 7913476 OXYCODONE-ACETAMINOPHEN Inactive HYDROCODONE-ACETAMINOPHEN 7.5-325 MG TABS 1 by mouth e very 6 hours as needed for pain HYDROCODONE-ACETAMINOPHEN 7.5-325 MG TABS 194834 HYDROCODONE-ACETAMINOPHEN Inactive PERCOCET 7.5-325 MG TABS 1 PO q 8 hrs PRN pain PERCOCET 7.5-325 MG TABS 2467037 OXYCODONE-ACETAMINOPHEN Inactive AMOXICILLIN 875 MG TABS 1 tab by mouth twice daily 201 07/18/07 AMOXICILLIN 875 MG TABS 861966 AMOXICILLIN Inactive KEFLEX 500 MG CAP 1 po tid x 10 days KEFLEX 500 MG CAP 429078 CEPHALEXIN Inactive AMOXICILLIN 875 MG TABS 1 tab by mouth twice daily 201 07/19/27 AMOXICILLIN 875 MG TABS 477207 AMOXICILLIN Inactive AMOXICILLIN 875 MG TABS 1 tab by mouth twice daily 201 08/09/13 AMOXICILLIN 875 MG TABS 900693 AMOXICILLIN Inactive CIPRO 500 MG TAB 1 tablet by mouth twice daily CIPRO 500 MG TAB 909744 CIPROFLOXACIN HCL Inactive BACTRIM DS 800-160 MG TAB 1 tab by mouth twice daily 2 BACTRIM DS 800-160 MG TAB TRIMETHOPRIM-SULFAMETHOXAZOLE Inac tive LEVAQUIN 500 MG TABS 1 PO q day x 7 days LEVAQUIN 500 MG TABS 735991 LEVOFLOXACIN Inactive CLINDAMYCIN HCL 300 MG CAPS 1 po QID x 7 days CLINDAMYCIN HCL 300 MG CAPS 226383 CLINDAMYCIN HCL Inactive Advance Directives Directive Description Start Date PERMISSION TO SHARE Immunizations Vaccine Administration Date Value Standard Alf cription Seasonal influenza vaccine, injectable, containing preservative, for > 3 years old (Afluria, FluLaval, Fluzone, Fluvirin, Fluarix, Agriflu(>= 18 yo)) Fluzone (>3 yrs.) [[id number]] Influenza, seasonal, inject able Seasonal influenza vaccine, injectable, preservative free, for > 3 years old (Afluria, FluLaval, Fluzone, Fluvirin, Fluarix, Agriflu(>= 18 yo)) Fluzone preservative free (>3 yrs.) [[id number]] Influenza, seasonal, injectable, preservative free Seasonal influenza vaccine, injectable, containing preservative, for > 3 years old (Afluria, FluLaval, Fluzone, Fluvirin, Fluarix, Agriflu(>= 18 yo)) Fluzone (>3 yrs.) [[id number]] Influenza, seasonal, inject able Seasonal influenza vaccine, injectable, containing preservative, for > 3 years old (Afluria, FluLaval, Fluzone, Fluvirin, Fluarix, Agriflu(>= 18 yo)) Fluzone (>3 yrs.) [[id number]] Influenza, seasonal, inject able dT (Diphtheria and [...] ... - Chemistry sodium, serum 140 mmol/L 405-437 7697/02/24 potassium, serum 4.3 mmol/L 3.5-5.2 chloride, serum [...] 4.3-6.0 Lab Report: T3, TOTAL, INSULIN - Traffic Administrator ry triiodothyronine, serum 78 ng/dL 76-181 Lab [...] mg/dL Encounters Code Encounter Date Provider Facility CPT-56072 Level 3 Est. Patient 18:12:34 CDT Shola Wright [facility] CPT-35588 Level 3 Est. Patient 19:34:46 CDT Shola Wright [facility] CPT-67589 Level 3 Est. Patient 14:19:37 CDT Abdirahman Rios MD [facility] CPT-13021 Level 3 Est. Patient 14:11:58 CDT Kalpesh goins MD [facility] CPT-08109 Level 3 Est. Patient 16:50:00 CDT Michelle MERCADO [facility] CPT-11974 Level 3 Est. Patient 17:11:32 SOCIAL RESEARCH ASSISTANT Brandie bates MD PhD [facility] CPT-47716 Level 3 Est. Patient 16:31:47 SOCIAL RESEARCH ASSISTANT Shola Wright [facility] CPT-79618 Level 3 Est. Patient 17:51:10 SOCIAL RESEARCH ASSISTANT Abhinav Galvan MD [facility] CPT-02203 Level 4 Est. Patient 12:54:56 SOCIAL RESEARCH ASSISTANT Kalpesh goins MD [facility] CPT-22524 Level 4 Est. Patient 12:53:56 SOCIAL RESEARCH ASSISTANT Kalpesh goins MD [facility] CPT-89260 Level 3 Est. Patient 17:56:58 CDT Shola Wright [facility] CPT-48256 Level 3 Est. Patient 14:26:20 CDT Janak butcher [facility] CPT-49640 Level 3 Est. Patient 09:38:41 CDT Shola Wright [facility] CPT-19820 Level 3 Est. Patient 14:45:26 CDT Edilberto tiwari [facility] CPT-18035 Level 3 Est. Patient 10:51:33 [facility] Est[facility] Patient 11:57:55 SOCIAL RESEARCH ASSISTANT Shola Thao Adriana [facility] CPT-15435 Level 3 Est. Patient 09:53:33 SOCIAL RESEARCH ASSISTANT Edilberto tiwari [facility] CPT-24844 Level 3 Est. Patient 14:42:54 SOCIAL RESEARCH ASSISTANT Abhinav Galvan MD [facility] CPT-79835 Level 3 Est. Patient 15:10:[address] [facility] CPT-10076 Level 3 Est. Patient 15:20:20 CDT Theo dennis MD [facility]-82998 Level 2 Est. Patient 14:08:57 CDT Kalpesh goins MD [facility] CPT-89359 Level 3 Est. Patient 13:56:19 CDT Abdirahman Rios MD [facility] CPT-88636 Level 3 Est. Patient 13:59:37 CDT Abdirahman Rios MD [facility] CPT-92874 Level 2 Est. Patient 14:44:59 CDT Kalpesh goins MD [facility]-20266 Level 3 Est. Patient 06:06:23 CDT Edilberto tiwari [facility] CPT-62508 Level 3 Est. Patient 15:23:54 CDT Abdirahman Rios MD [facility] CPT-89865 Level 3 Est. Patient 15:43:49 CDT Abdirahman Rios MD [facility] CPT-36772 Level 3 Est. Patient 12:46:47 SOCIAL RESEARCH ASSISTANT Abdirahman Rios MD [facility] CPT-66610 Level 3 Est. Patient 08:13:35 SOCIAL RESEARCH ASSISTANT Abdirahman Rios MD [facility] CPT-69289 Level 2 Est. Patient 09:36:42 SOCIAL RESEARCH ASSISTANT Abdirahman Rios MD [facility] CPT-38099 Level 3 Est. Patient 10:56:43 CDT Abdirahman Rios MD [facility] CPT-10545 Level 3 Est. Patient 18:24:52 CDT Abdirahman Rios MD [facility] CPT-92747 Level 3 Est. Patient 13:27:22 CDT Abdirahman Rios MD [facility] Procedures Code Procedure Name Date Entry Date Standard Desc ription CPT-71206 Immunization Single Admin 16:41:53 CDT 2013 CPT-15609 Fluzone Quadrivalent Intramuscular Suspe nsion 0.5 ML 16:41:53 CDT CPT-OV Office Visit 16:39:18 CDT CPT-OV Office Visit 16:16:36 CDT CPT-OV Office Visit 15:34:48 CDT CPT-61483 Postop F/U Visit 14:50:12 CDT CPT-88376 Postop F/U Visit 14:41:10 CDT CPT-65900 Venipuncture Draw Fee 11:38:04 SOCIAL RESEARCH ASSISTANT CPT-15396 Postop F/U Visit 19:02:59 SOCIAL RESEARCH ASSISTANT CPT-52181 Postop F/U Visit 12:04:54 SOCIAL RESEARCH ASSISTANT CPT-12315 Administration single or combination vac cine inc oral 15:56:43 CDT CPT-98791 Influenza split virus > age 3 15:56:43 CDT CPT-00929 Hand comp min 3V 14:25:19 CDT CPT-94717 Postop F/U Visit 21:40:51 CDT CPT-06696 Postop F/U Visit 10:58:43 CDT CPT-39371 Administration single or combination vac cine inc oral 12:33:54 SOCIAL RESEARCH ASSISTANT CPT-20572 Influenza Preservative Free split virus >age 3 12:33:54 SOCIAL RESEARCH ASSISTANT CPT-17019 Administration single or combination vac cine inc oral 09:30:51 CDT CPT-44761 Influenza split virus > age 3 09:30:51 CDT CPT-34863 Postop F/U Visit 15:14:53 CDT CPT-17860 Postop F/U Visit 13:50:14 CDT CPT-30411 Postop F/U Visit 13:34:52 CDT CPT-OV Office Visit 16:55:03 CDT CPT-85142 [place]ena of cervix w bx ECC 13:32:50 CDT 10/19 CPT-J1885 Toradol 60 mg (Ketorolac) 15:31:59 CDT 2011 CPT-J1885 Toradol 60 mg (Ketorolac) 15:23:54 CDT 2011 CPT-00981 Visit 11:34:37 SOCIAL RESEARCH ASSISTANT CPT-29531 Visit 10:52:39 SOCIAL RESEARCH ASSISTANT CPT-46948 Visit 10:12:02 SOCIAL RESEARCH ASSISTANT CPT-43476 Visit 11:22:43 SOCIAL RESEARCH ASSISTANT CPT-08370 Visit 11:24:12 SOCIAL RESEARCH ASSISTANT CPT-23287 Visit 10:47:05 SOCIAL RESEARCH ASSISTANT CPT-OV Office Visit 10:26:16 SOCIAL RESEARCH ASSISTANT CPT-OV Office Visit 15:34:31 SOCIAL RESEARCH ASSISTANT CPT-41804 Visit 10:42:08 SOCIAL RESEARCH ASSISTANT CPT-35428 Visit 10:52:45 SOCIAL RESEARCH ASSISTANT CPT-000 Give Appropriate Flu Vaccine 16:56:41 CDT 2 CPT-12971 Administration single or combination vac cine inc oral 10:33:21 CDT CPT-09941 Influenza split virus > age 3 10:33:21 CDT CPT-35341 Visit 13:23:09 CDT CPT-03428 Visit 18:24:52 CDT CPT-00502 Sono OB comp > 14 weeks 12:07:49 CDT 04/07
--- OUTSIDE RECORDS SUMMARY | 2020-01-18 17:12 | XMS REPORT | Clinical Summary ---
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 Stormy Jluian MD ENCOUNTER FOR THERAPEUTIC DRUG MONITORING ICD-V58.83 [...] by mouth twice a day 11/05 SULFAMETHOXAZOLE-TRIMETHOPRIM [id number] No Longer Active Good Julian MD Active IBUPROFEN 800 MG TABS 1 tid prn IBUPROFEN [id number] Active Good Julian MD Active ENDOCET 10-325 MG TABS 1 q 6 hr prn OXYCODONE-A CETAMINOPHEN 51312681928 Active Shola MCGILL Active HYDROCODONE-ACETAMINOPHEN 7.5-325 MG TABS 1 four times a day as needed for pain HYDROCODONE-ACETAMINOPHEN 14208914442 No Longer Activ crystal Julian MD Active KEFLEX 500 MG CAP 1 tab po tid CEPHALEXIN 197400 43032 No Longer Active Hira Moser APRN Active IBUPROFEN 800 MG TAB 1 pill three times daily as needed for pain IBUPROFEN 82022884721 No Longer Active Kalpesh Dong MD Active PROMETHAZINE-CODEINE 6.25-10 MG/5ML SYRP 1 tsp every 6 hrs prn c ough PROMETHAZINE-CODEINE 56381898539 No Longer Active Kalpesh Carr Active ALPRAZOLAM 0.5 MG TABS 1 PO bid PRN ALPRAZOLAM 527830 63159 Active Shola MCGILL Active HYDROCODONE-ACETAMINOPHEN 5-325 MG TABS 1 tab by mouth every 6 hours as needed HYDROCODONE-ACETAMINOPHEN 39130534690 No Longer Activ e Shola MCGILL Active CEPHALEXIN 500 MG CAPS 1 PO bid x 7 days CEPHAL EXIN 71202151036 No Longer Active Shola MCGILL Active BACTRIM DS 800-160 MG TAB 1 tab by mouth twice daily 2 TRIMETHOPRIM-SULFAMETHOXAZOLE 64535335890 No Longer Active Kalpesh Dong MD Active HYDROCODONE-ACETAMINOPHEN 5-325 MG TABS 1 PO tid PRN pain 5 HYDROCODONE-ACETAMINOPHEN 57850070589 No Longer Active Abhinav Galvan MD Active IMPLANON 68 MG IMPL IMPLANTED IN LEFT ARM ETONO GESTREL 18666442460 No Longer Active Jillsiri Frazell BUILDING SERVICES COORDINATOR Active AMOXICILLIN 500 MG TABS 2 tabs PO bid x 10 d AM OXICILLIN 60102466634 No Longer Active Kalpesh Dong MD Active LEVAQUIN 500 MG TABS 1 PO q day x 7 days LEVOFL OXACIN 21233124792 No Longer Active Shola MCGILL Active PROAIR HFA 108 (90 BASE) MCG/ACT AERS 2 puff q 4-6 hrs PRN ALBUTEROL SULFATE 82776747546 Active Shola MCGILL Acti ve FIORICET 50-325-40 MG TABS 2 PO q 8 hrs PRN FOSTER [id number] 97534702793 Active Abdirahman Rios MD Active AMITRIPTYLINE HCL 25 MG TAB 1 tab by mouth daily 60 minutes before bedtime AMITRIPTYLINE HCL 42947584687 No Longer Active Shola MCGILL Active LORTAB 5 5-500 MG TABS 1/2 to 1 tablet by mouth go ry 6 hours as needed for pain HYDROCODONE-ACETAMINOPHEN 24229514990 No Longer Active Shola MCGILL Active CEPHALEXIN 500 MG TABS Take one by mouth four times daily, morning, noon, early evening and bedtime. CEPHALEXIN 88042452948 No Long er Active Hira Moser BUILDING SERVICES COORDINATOR Active TYLENOL/CODEINE #3 300-30 MG TAB 1-2 po q6hr PRN Pain ACETAMINOPHEN-CODEINE 29462621463 No Longer Active Edilberto Marino DO Active PRISTIQ 50 MG [id number] 1 po qd DESVENLAFAXI NE SUCCINATE 79154587928 No Longer Active Edilberto Marino DO Active PENICILLIN V POTASSIUM 500 MG TAB 1 four times a day 2 PENICILLIN V POTASSIUM 65075755982 No Longer Active Edilberto Marino DO Active DOXYCYCLINE HYCLATE 100 MG CAPS Take one (1) tablet by mouth twice a day DOXYCYCLINE HYCLATE 62498647296 No Longer Active Ronnie Galvan MD Active HYDROCODONE-ACETAMINOPHEN 5-325 MG TABS 1 po q 6hr PRN Pain 2011 HYDROCODONE-ACETAMINOPHEN 40635595169 No Longer Active Patri joan Perez RN Active BACTRIM DS 800-160 MG TAB 1 tab by mouth twice daily 2 TRIMETHOPRIM-SULFAMETHOXAZOLE 52390288990 No Longer Active Kalpesh Dong MD Active LORTAB 5 5-500 MG TABS 1/2 to 1 tablet by mouth go ry 4 hours as needed for pain HYDROCODONE-ACETAMINOPHEN 41945784678 No Longer Active Kalpesh Dong MD Active GENERESS FE 0.8-25 MG-MCG CHEW Take one by mouth daily NORETHIN-ETH ESTRADIOL-FE 17457738156 No Longer Active Kalpesh Dong MD Active HYDROCODONE-ACETAMINOPHEN 7.5-500 MG TABS 1-2 every 4 hours as needed HYDROCODONE-ACETAMINOPHEN 17906168632 No Longer Activ e Kalpesh Dong MD Active FERROUS SULFATE 325 (65 FE) MG TABS 1 tablet by mouth twice yung y FERROUS SULFATE 18098677671 No Longer Active Kalpesh Dong MD Active IBUPROFEN 600 MG TAB 1 po q6-8hr PRN IBUPROFEN 68793541431 No Longer Active Kalpesh Dong MD Active SPIRONOLACTONE 25 MG TAB 1 tablet by mouth daily 01/22 SPIRONOLACTONE 08760993246 No Longer Active Kalpesh Dong MD Acti ve HYDROCODONE-ACETAMINOPHEN 7.5-325 MG TABS 1 po QID PRN Pain 2011 HYDROCODONE-ACETAMINOPHEN 14965144260 No Longer Active Kalpesh Dong MD Active CLINDAMYCIN HCL 300 MG CAPS 1 po q6hr x 7 days CLINDAMYCIN HCL 06027173086 No Longer Active Edilberto Marino DO Active PREDNISONE 20 MG TAB 2 tabs daily for 4 days, 1 t ab daily for 4 days, 1/2 tab daily for 4 days PREDNISONE 49181350099 No Longer Active Edilberto Marino DO Active PERCOCET 5-325 MG TABS 1 tablet by mouth every 6 hours as ne eded for pain OXYCODONE-ACETAMINOPHEN 05068457778 No Longer Active Abdirahman Rios MD Active VITAMINS TABS Take one by mouth daily MV & MIN W/FE-FA TABS 47721722679 No Longer Active Abdirahman Rios MD Active LUIS 3-0.02 MG TABS 1 tablet by mouth daily as directed DROSPIRENONE-ETHINYL ESTRADIOL 91237577864 No Longer Active Abdirahman Rios MD Active LORATADINE 10 MG TABS 1 tablet by mouth daily L ORATADINE 06948658651 No Longer Active Kalpesh Dong MD Active HYDROCODONE-ACETAMINOPHEN 5-325 MG TABS 1 po q 6hr PRN Pain 2010 HYDROCODONE-ACETAMINOPHEN 97086155308 No Longer Active Edilberto Marino DO Active BACTRIM DS 800-160 MG TAB 1 tab by mouth twice daily 2 TRIMETHOPRIM-SULFAMETHOXAZOLE 38876210917 No Longer Active Abdirahman Rios MD Active 28-0.8 MG TABS Take one by mouth daily 09/20 VIT-FE FUMARATE-FA 74348900104 No Longer Active Abdirahman Rios MD Active CIPRO 500 MG TAB 1 tablet by mouth twice daily CIPROFLOXACIN HCL 32542646847 No Longer Active Abdirahman Rios MD Active BENADRYL 25 MG CAP 1 po q8hr PRN Congestion DIPHENHYDRAMINE HCL 27876749797 No Longer Active Abdirahman Rios MD Active ZOLOFT 50 MG TAB 1 po qd SERTRALINE HCL 026707 09570 No Longer Active Abdirahman Rios MD Active AMOXICILLIN 875 MG TABS 1 tab by mouth twice daily 201 08/09/13 AMOXICILLIN 49949086654 No Longer Active Abdirahman Rios MD Activ e AMOXICILLIN 875 MG TABS 1 tab by mouth twice daily 201 07/19/27 AMOXICILLIN 96891315032 No Longer Active Abdirahman Rios MD Activ e BACTRIM DS 800-160 MG TAB 2 tab by mouth twice daily 2 TRIMETHOPRIM-SULFAMETHOXAZOLE 24099325284 No Longer Active Abdirahman Rios MD Active KEFLEX 500 MG CAP 1 po tid x 10 days CEPHALEXIN 06746880141 No Longer Active Abdirahman Rios MD Active AMOXICILLIN 875 MG TABS 1 tab by mouth twice daily 201 07/18/07 AMOXICILLIN 54990537209 No Longer Active Abdirahman Rios MD Activ e VITAMINS TABS Take one by mouth daily VITAMINS TABS MV & MIN W/FE-FA TABS Inactive AMITRIPTYLINE HCL 25 MG TAB 1 tab by mouth daily 60 minutes before bedtime AMITRIPTYLINE HCL 25 MG TAB 258917 AMITRIPTYLINE HCL Inactive BACTRIM DS 800-160 MG [...] q8hr PRN Congestion BENADRYL 25 MG CAP 1281036 DIPHENHYDRAMINE HCL Inactive CIPRO 500 MG TAB 1 tablet by mouth twice daily CIPRO 500 MG TAB 888861 CIPROFLOXACIN HCL Inactive DOXYCYCLINE HYCLATE 100 MG CAPS Take one (1) tablet by mouth twice a day DOXYCYCLINE HYCLATE 100 MG CAPS 057882 DOXYCYCLINE HYCLATE Inactive FERROUS SULFATE 325 (65 FE) MG TABS 1 tablet by mouth twice yung y FERROUS SULFATE 325 (65 FE) MG TABS 722473 FERROUS SULF ATE Inactive IBUPROFEN 600 MG TAB 1 po q6-8hr PRN IBUPROFEN 600 MG TAB 350803 IBUPROFEN Inactive IBUPROFEN 800 MG TAB 1 pill three times daily as needed for pain IBUPROFEN 800 MG TAB 941642 IBUPROFEN Inactive KEFLEX 500 MG CAP 1 tab po tid KEFLEX 500 MG CAP 840179 CEPHALEXIN Inactive KEFLEX 500 MG CAP 1 po tid x 10 days KEFLEX 500 MG CAP 590833 CEPHALEXIN Inactive PENICILLIN V POTASSIUM 500 MG TAB 1 four times a day 2 PENICILLIN V POTASSIUM 500 MG TAB 439004 PENICILLIN V POTASSIUM Siri ctive PERCOCET 5-325 MG TABS 1 tablet by mouth every 6 hours as ne eded for pain PERCOCET 5-325 MG TABS 4533784 OXYCODONE-ACETAMIN OPHEN Inactive PREDNISONE 20 MG TAB 2 tabs daily for 4 days, 1 t ab daily for 4 days, 1/2 tab daily for 4 days PREDNISONE 20 MG TAB 086621 PREDNISON E Inactive PROMETHAZINE-CODEINE 6.25-10 MG/5ML SYRP 1 tsp every 6 hrs prn c ough PROMETHAZINE-CODEINE 6.25-10 MG/5ML SYRP 911422 PROMETH AZINE-CODEINE Inactive SPIRONOLACTONE 25 MG TAB 1 tablet by mouth daily 01/22 SPIRONOLACTONE 25 MG TAB 745454 SPIRONOLACTONE Inactive TYLENOL/CODEINE #3 300-30 MG TAB 1-2 po q6hr PRN Pain TYLENOL/CODEINE #3 300-30 MG TAB 124742 ACETAMINOPHEN-CODEINE Inact krishna ZOLOFT 50 MG TAB 1 po qd ZOLOFT 50 MG TAB 3129 41 SERTRALINE HCL Inactive CEPHALEXIN 500 MG CAPS 1 PO bid x 7 days CEPHALEXIN 500 MG CAPS 829458 CEPHALEXIN Inactive CEPHALEXIN 500 MG TABS Take one by mouth four times daily, morning, noon, early evening and bedtime. CEPHALEXIN 500 MG TABS 576165 CEPHALEXIN Inactive CLINDAMYCIN HCL 300 MG CAPS 1 po q6hr x 7 days CLINDAMYCIN HCL 300 MG CAPS 767690 CLINDAMYCIN HCL Inactive LORATADINE 10 MG TABS 1 tablet by mouth daily LORATADINE 10 MG TABS 663055 LORATADINE Inactive LORTAB 5 5-500 MG TABS [...] hours as needed HYDROCODONE-ACETAMINOPHEN 7.5-500 MG TABS 650538 HYDROCODONE-ACETAMINOPHEN Inactive AMOXICILLIN 500 MG TABS 2 tabs PO bid x 10 d AMOXICILLIN 500 MG TABS 267584 AMOXICILLIN Inactive LEVAQUIN 500 MG TABS 1 PO q day x 7 days LEVAQUIN 500 MG TABS 008873 LEVOFLOXACIN Inactive AMOXICILLIN 875 MG TABS 1 tab by mouth twice daily 201 07/19/27 AMOXICILLIN 875 MG TABS 823288 AMOXICILLIN Inactive AMOXICILLIN 875 MG TABS 1 tab by mouth twice daily 201 08/09/13 AMOXICILLIN 875 MG TABS 365111 AMOXICILLIN Inactive AMOXICILLIN 875 MG TABS 1 tab by mouth twice daily 201 07/18/07 AMOXICILLIN 875 MG TABS 599127 AMOXICILLIN Inactive HYDROCODONE-ACETAMINOPHEN 5-325 MG TABS 1 tab by mouth every 6 hours as needed HYDROCODONE-ACETAMINOPHEN 5-325 MG TABS 108265 HYDROCODONE-ACETAMINOPHEN Inactive HYDROCODONE-ACETAMINOPHEN 5-325 MG TABS 1 PO tid PRN pain 5 HYDROCODONE-ACETAMINOPHEN 5-325 MG TABS 185993 HYDROCODONE-ACETAMIN OPHEN Inactive HYDROCODONE-ACETAMINOPHEN 5-325 MG TABS 1 po q 6hr PRN Pain 2011 HYDROCODONE-ACETAMINOPHEN 5-325 MG TABS 675369 HYDROCODONE-ACETAMINOPHEN Inactive HYDROCODONE-ACETAMINOPHEN 5-325 MG TABS 1 po q 6hr PRN Pain 2010 HYDROCODONE-ACETAMINOPHEN 5-325 MG TABS 501247 HYDROCODONE-ACETAMINOPHEN Inactive HYDROCODONE-ACETAMINOPHEN 7.5-325 MG TABS 1 po QID PRN Pain 2011 HYDROCODONE-ACETAMINOPHEN 7.5-325 MG TABS 094780 HYDROCODONE-ACETAMINOPHEN Inactive HYDROCODONE-ACETAMINOPHEN 7.5-325 MG TABS 1 four times a day as needed for pain HYDROCODONE-ACETAMINOPHEN 7.5-325 MG TABS 142850 HYDROCODONE-ACETAMINOPHEN Inactive 28-0.8 MG TABS Take one by mouth daily 09/20 28-0.8 MG TABS VIT-FE FUMARATE-FA Inactive LUIS 3-0.02 MG TABS 1 tablet by mouth daily as directed LUIS 3-0.02 MG TABS DROSPIRENONE-ETHINYL ESTRADIOL Inactive IMPLANON 68 MG IMPL IMPLANTED IN LEFT ARM IMPLANON 68 MG IMPL ETONOGESTREL Inactive PRISTIQ 50 MG [id number] 1 po qd PRISTIQ 50 MG [id number] DESVENLAFAXINE SUCCINATE Inactive GENERESS FE 0.8-25 MG-MCG CHEW Take one by mouth daily GENERESS FE 0.8-25 MG-MCG CHEW NORETHIN-ETH ESTRADIOL-FE Inactive Advance Directives Directive Description Start Date PERMISSION TO SHARE Immunizations Vaccine Administration Date Value Standard Alf cription Seasonal influenza vaccine, injectable, containing preservative, for > 3 years old (Afluria, FluLaval, Fluzone, Fluvirin, Fluarix, Agriflu(>= 18 yo)) Fluzone (>3 yrs.) [[id number]] Influenza, seasonal, inject able Seasonal influenza vaccine, injectable, preservative free, for > 3 years old (Afluria, FluLaval, Fluzone, Fluvirin, Fluarix, Agriflu(>= 18 yo)) Fluzone preservative free (>3 yrs.) [[id number]] Influenza, seasonal, injectable, preservative free Seasonal influenza vaccine, injectable, containing preservative, for > 3 years old (Afluria, FluLaval, Fluzone, Fluvirin, Fluarix, Agriflu(>= 18 yo)) Fluzone (>3 yrs.) [[id number]] Influenza, seasonal, inject able Seasonal influenza vaccine, injectable, containing preservative, for > 3 years old (Afluria, FluLaval, Fluzone, Fluvirin, Fluarix, Agriflu(>= 18 yo)) Fluzone (>3 yrs.) [[id number]] Influenza, seasonal, inject able dT (Diphtheria and [...] mg/dL Chart Maintenance: Outside labs entered on [facility] - Hematology leukocyte count, blood 8.3 10*3/mm3 erythrocyte (RBC) count 5.2 10*6/mm3 hemoglobin, blood 14.2 g/dL hematocrit, blood 42.6 % mean corpuscular volume, RBC 82.4 fL mean corpuscular hemoglobin, RBC 27.5 pg red blood cell distribution width 12.9 % platelet count 316 10*3/mm3 Lab Report: CBC W/DIFF, Comp. Metabolic Panel, Thyroid Stimulating Hormo ... - Chemistry sodium, serum 140 mmol/L 949-363 4588/02/24 potassium, serum 4.3 mmol/L 3.5-5.2 chloride, serum [...] 4.3-6.0 Lab Report: T3, TOTAL, INSULIN - Crop Setting Out Machine Operator ry triiodothyronine, serum 78 ng/dL [...] mg/dL Encounters Code Encounter Date Provider Facility CPT-83608 Level 3 Est. Patient 14:11:58 CDT Kalpesh goins MD [facility] CPT-67422 Level 3 Est. Patient 16:50:00 CDT Michelle MERCADO [facility] CPT-81595 Level 3 Est. Patient 17:11:32 CALENDER LET OFF OPERATOR Brandie bates MD PhD [facility] CPT-27358 Level 3 Est. Patient 16:31:47 CALENDER LET OFF OPERATOR Shola MCGILL [facility] CPT-73884 Level 3 Est. Patient 17:51:10 CALENDER LET OFF OPERATOR Abhinav Galvan MD [facility] CPT-74998 Level 4 Est. Patient 12:54:56 CALENDER LET OFF OPERATOR Kalpesh goins MD [facility] CPT-22127 Level 4 Est. Patient 12:53:56 CALENDER LET OFF OPERATOR Kalpesh goins MD [facility] CPT-42211 Level 3 Est. Patient 17:56:58 CDT Shola MCGILL [facility] CPT-40540 Level 3 Est. Patient 14:26:20 CDT Janak butcher [facility] CPT-19505 Level 3 Est. Patient 09:38:41 CDT Shola Wright [facility] CPT-14879 Level 3 Est. Patient 14:45:26 CDT Edilberto tiwari [facility] CPT-53941 Level 3 Est. Patient 10:51:33 CDT Hira muniz [facility] CPT-93450 Level 3 Est. Patient 11:57:55 CALENDER LET OFF OPERATOR Shola Thao Adriana [facility] CPT-90212 Level 3 Est. Patient 09:53:33 CALENDER LET OFF OPERATOR Edilberto tiwari [facility] CPT-57241 Level 3 Est. Patient 14:42:54 CALENDER LET OFF OPERATOR Abhinav Galvan MD [facility] CPT-43649 Level 3 Est. Patient 15:10:02 CDT Janak butcher [facility] CPT-89806 Level 3 Est. Patient 15:20:20 CDT Teho dennis MD [facility] CPT-68167 Level 2 Est. Patient 14:08:57 CDT Kalpesh goins MD [facility] CPT-73102 Level 3 Est. Patient 13:56:19 CDT Abdirahman Rios MD [facility] CPT-47402 Level 3 Est. Patient 13:59:37 CDT Abdirahman Rios MD [facility] CPT-47669 Level 2 Est. Patient 14:44:59 CDT aKlpesh goins MD [facility]-52342 Level 3 Est. Patient 06:06:23 CDT Edilberto tiwari [facility] CPT-92963 Level 3 Est. Patient 15:23:54 CDT Abdirahman Rios MD [facility] CPT-46200 Level 3 Est. Patient 15:43:49 CDT Abdirahman Rios MD [facility] CPT-20491 Level 3 Est. Patient 12:46:47 CALENDER LET OFF OPERATOR Abdirahman Rios MD [facility] CPT-12483 Level 3 Est. Patient 08:13:35 CALENDER LET OFF OPERATOR Abdirahman Rios MD [facility] CPT-07051 Level 2 Est. Patient 09:36:42 CALENDER LET OFF OPERATOR Abdirahman Rios MD [facility] CPT-69217 Level 3 Est. Patient 10:56:43 CDT Abdirahman Rios MD [facility] CPT-56042 Level 3 Est. Patient 18:24:52 CDT Abdirahman Rios MD [facility] CPT-06190 Level 3 Est. Patient 13:27:22 CDT Abdirahman Rios MD [facility] Procedures Code Procedure Name Date Entry Date Standard Desc ription CPT-OV Office Visit 15:34:48 CDT CPT-74991 Postop F/U Visit 14:50:12 CDT CPT-97672 Postop F/U Visit 14:41:10 CDT CPT-75775 Venipuncture Draw Fee 11:38:04 CALENDER LET OFF OPERATOR CPT-47878 Postop F/U Visit 19:02:59 CALENDER LET OFF OPERATOR CPT-85448 Postop F/U Visit 12:04:54 CALENDER LET OFF OPERATOR CPT-67747 Administration single or combination vac cine inc oral 15:56:43 CDT CPT-78401 Influenza split virus > age 3 15:56:43 CDT CPT-47419 Hand comp min 3V 14:25:19 CDT CPT-16564 Postop F/U Visit 21:40:51 CDT CPT-89023 Postop F/U Visit 10:58:43 CDT CPT-17814 Administration single or combination vac cine inc oral 12:33:54 CALENDER LET OFF OPERATOR CPT-78272 Influenza Preservative Free split virus >age 3 12:33:54 CALENDER LET OFF OPERATOR CPT-69560 Administration single or combination vac cine inc oral 09:30:51 CDT CPT-80777 Influenza split virus > age 3 09:30:51 CDT CPT-95850 Postop F/U Visit 15:14:53 CDT CPT-16566 Postop F/U Visit 13:50:14 CDT CPT-59268 Postop F/U Visit 13:34:52 CDT CPT-OV Office Visit 16:55:03 CDT CPT-47053 [place] of cervix w bx ECC 13:32:50 CDT 10/19 CPT-J1885 Toradol 60 mg (Ketorolac) 15:31:59 CDT 2011 CPT-J1885 Toradol 60 mg (Ketorolac) 15:23:54 CDT 2011 CPT-56666 Visit 11:34:37 CALENDER LET OFF OPERATOR CPT-15448 Visit 10:52:39 CALENDER LET OFF OPERATOR CPT-11313 Visit 10:12:02 CALENDER LET OFF OPERATOR CPT-35736 Visit 11:22:43 CALENDER LET OFF OPERATOR CPT-88700 Visit 11:24:12 CALENDER LET OFF OPERATOR CPT-69245 Visit 10:47:05 CALENDER LET OFF OPERATOR CPT-OV Office Visit 10:26:16 CALENDER LET OFF OPERATOR CPT-OV Office Visit 15:34:31 CALENDER LET OFF OPERATOR CPT-72141 Visit 10:42:08 CALENDER LET OFF OPERATOR CPT-30006 Visit 10:52:45 CALENDER LET OFF OPERATOR CPT-000 Give Appropriate Flu Vaccine 16:56:41 CDT 2 CPT-94228 Administration single or combination vac cine inc oral 10:33:21 CDT CPT-05240 Influenza split virus > age 3 10:33:21 CDT CPT-24163 Visit 13:23:09 CDT CPT-48713 Visit 18:24:52 CDT CPT-95125 Sono OB comp > 14 weeks 12:07:49 CDT 04/07
--- OUTSIDE RECORDS SUMMARY | 2020-01-18 17:13 | XMS REPORT | Clinical Summary ---
Author Author Admin, Jeri Rashid Organization [facility] Address Unknown Phone Allergies, Adverse Reactions, [...] FAMILY PLANNING ICD-V25.09 Inactive Good Julian MD LARGE FOR GESTATIONAL AGE ICD-656.60 Inactive Abdirahman Rios MD HIDRADENITIS SUPPURATIVA ICD-705.83 Inactive Good Julian [...] Inactive John Martin Dysmenorrhea, severe ICD-625.3 Inactive Kalepsh Dong MD Abnormal vaginal bleeding ICD-626.9 Inactive [...] by mouth twice a day 11/05 SULFAMETHOXAZOLE-TRIMETHOPRIM [id number] No Longer Active Good Julian MD Active IBUPROFEN 800 MG TABS 1 tid prn IBUPROFEN 75163545978 Active Good Julian MD Active ENDOCET 10-325 MG TABS 1 q 6 hr prn OXYCODONE-A CETAMINOPHEN 92311929224 Active Shola MCGILL Active HYDROCODONE-ACETAMINOPHEN 7.5-325 MG TABS 1 four times a day as needed for pain HYDROCODONE-ACETAMINOPHEN 51136210403 No Longer Activ crystal Julian MD Active KEFLEX 500 MG CAP 1 tab po tid CEPHALEXIN 847597 82298 No Longer Active Hira Moser APRN Active IBUPROFEN 800 MG TAB 1 pill three times daily as needed for pain IBUPROFEN 22476221892 No Longer Active Kalpesh Dong MD Active PROMETHAZINE-CODEINE 6.25-10 MG/5ML SYRP 1 tsp every 6 hrs prn c ough PROMETHAZINE-CODEINE 32219099029 No Longer Active Kalpesh Carr Active ALPRAZOLAM 0.5 MG TABS 1 PO bid PRN ALPRAZOLAM 156190 07880 Active Shola MCGILL Active HYDROCODONE-ACETAMINOPHEN 5-325 MG TABS 1 tab by mouth every 6 hours as needed HYDROCODONE-ACETAMINOPHEN 97468592813 No Longer Activ e Shola MCGILL Active CEPHALEXIN 500 MG CAPS 1 PO bid x 7 days CEPHAL EXIN 50696899292 No Longer Active Shola MCGILL Active BACTRIM DS 800-160 MG TAB 1 tab by mouth twice daily 2 TRIMETHOPRIM-SULFAMETHOXAZOLE 47332076791 No Longer Active Kalpesh Dong MD Active HYDROCODONE-ACETAMINOPHEN 5-325 MG TABS 1 PO tid PRN pain 5 HYDROCODONE-ACETAMINOPHEN 31443530194 No Longer Active Abhinav Galvan MD Active IMPLANON 68 MG IMPL IMPLANTED IN LEFT ARM ETONO GESTREL 84946051724 No Longer Active 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 BOILER/CHILLER OPERATOR Active AMOXICILLIN 500 MG TABS 2 tabs PO bid x 10 d AM OXICILLIN 17781948231 No Longer Active Kalpesh Dong MD Active LEVAQUIN 500 MG TABS 1 PO q day x 7 days LEVOFL OXACIN 34814921340 No Longer Active Shola MCGILL Active PROAIR HFA 108 (90 BASE) MCG/ACT AERS 2 puff q 4-6 hrs PRN ALBUTEROL SULFATE 10659660080 Active Shola MCGILL Acti ve FIORICET 50-325-40 MG TABS 2 PO q 8 hrs PRN FOSTER NGOQGRPYMI-HPSH-OXRQCPIK 57028949402 Active Abdirahman Rios MD Active AMITRIPTYLINE HCL 25 MG TAB 1 tab by mouth daily 60 minutes before bedtime AMITRIPTYLINE HCL 56439931520 No Longer Active Shola MCGILL Active LORTAB 5 5-500 MG TABS 1/2 to 1 tablet by mouth go ry 6 hours as needed for pain HYDROCODONE-ACETAMINOPHEN 06128659358 No Longer Active Shola MCGILL Active CEPHALEXIN 500 MG TABS Take one by mouth four times daily, morning, noon, early evening and bedtime. CEPHALEXIN 84061019220 No Long er Active Hira Moser BOILER/CHILLER OPERATOR Active TYLENOL/CODEINE #3 300-30 MG TAB 1-2 po q6hr PRN Pain ACETAMINOPHEN-CODEINE 33767658110 No Longer Active Edilberto Marino DO Active PRISTIQ 50 MG [id number] 1 po qd DESVENLAFAXI NE SUCCINATE 98915026696 No Longer Active Edilberto Marino DO Active PENICILLIN V POTASSIUM 500 MG TAB 1 four times a day 2 PENICILLIN V POTASSIUM 66694795778 No Longer Active Edilberto Marino DO Active DOXYCYCLINE HYCLATE 100 MG CAPS Take one (1) tablet by mouth twice a day DOXYCYCLINE HYCLATE 49821104742 No Longer Active Ronnie Galvan MD Active HYDROCODONE-ACETAMINOPHEN 5-325 MG TABS 1 po q 6hr PRN Pain 2011 HYDROCODONE-ACETAMINOPHEN 97205115388 No Longer Active Patri joan Perez RN Active BACTRIM DS 800-160 MG TAB 1 tab by mouth twice daily 2 TRIMETHOPRIM-SULFAMETHOXAZOLE 68960772494 No Longer Active Kalpesh Dong MD Active LORTAB 5 5-500 MG TABS 1/2 to 1 tablet by mouth go ry 4 hours as needed for pain HYDROCODONE-ACETAMINOPHEN 05619194382 No Longer Active Kalpesh Dong MD Active GENERESS FE 0.8-25 MG-MCG CHEW Take one by mouth daily NORETHIN-ETH ESTRADIOL-FE 36850056780 No Longer Active Kalpesh Dong MD Active HYDROCODONE-ACETAMINOPHEN 7.5-500 MG TABS 1-2 every 4 hours as needed HYDROCODONE-ACETAMINOPHEN 79907517449 No Longer Activ e Kalpesh Dong MD Active FERROUS SULFATE 325 (65 FE) MG TABS 1 tablet by mouth twice yung y FERROUS SULFATE 41122464777 No Longer Active Kalpesh Dong MD Active IBUPROFEN 600 MG TAB 1 po q6-8hr PRN IBUPROFEN 91732052118 No Longer Active Kalpesh Dong MD Active SPIRONOLACTONE 25 MG TAB 1 tablet by mouth daily 01/22 SPIRONOLACTONE 71412186207 No Longer Active Kalpesh Dong MD Acti ve HYDROCODONE-ACETAMINOPHEN 7.5-325 MG TABS 1 po QID PRN Pain 2011 HYDROCODONE-ACETAMINOPHEN 88934460677 No Longer Active Kalpesh Dong MD Active CLINDAMYCIN HCL 300 MG CAPS 1 po q6hr x 7 days CLINDAMYCIN HCL 66550391292 No Longer Active Edilberto Marino DO Active PREDNISONE 20 MG TAB 2 tabs daily for 4 days, 1 t ab daily for 4 days, 1/2 tab daily for 4 days PREDNISONE 63147162018 No Longer Active Edilberto Marnio DO Active PERCOCET 5-325 MG TABS 1 tablet by mouth every 6 hours as ne eded for pain OXYCODONE-ACETAMINOPHEN 07836596019 No Longer Active Abdirahman Rios MD Active VITAMINS TABS Take one by mouth daily MV & MIN W/FE-FA TABS 07479372574 No Longer Active Abdirahman Rios MD Active LUIS 3-0.02 MG TABS 1 tablet by mouth daily as directed DROSPIRENONE-ETHINYL ESTRADIOL 39951617290 No Longer Active Abdirahman Rios MD Active LORATADINE 10 MG TABS 1 tablet by mouth daily L ORATADINE 17607368130 No Longer Active Kalpesh Dong MD Active HYDROCODONE-ACETAMINOPHEN 5-325 MG TABS 1 po q 6hr PRN Pain 2010 HYDROCODONE-ACETAMINOPHEN 92163273193 No Longer Active Edilberto Marino DO Active BACTRIM DS 800-160 MG TAB 1 tab by mouth twice daily 2 TRIMETHOPRIM-SULFAMETHOXAZOLE 30992482224 No Longer Active Abdirahman Rios MD Active 28-0.8 MG TABS Take one by mouth daily 09/20 VIT-FE FUMARATE-FA 78507785854 No Longer Active Abdirahman Rios MD Active CIPRO 500 MG TAB 1 tablet by mouth twice daily CIPROFLOXACIN HCL 01414395022 No Longer Active Abdirahman Rios MD Active BENADRYL 25 MG CAP 1 po q8hr PRN Congestion DIPHENHYDRAMINE HCL 38336916978 No Longer Active Abdirahman Rios MD Active ZOLOFT 50 MG TAB 1 po qd SERTRALINE HCL 122897 50779 No Longer Active Abdirahman Rios MD Active AMOXICILLIN 875 MG TABS 1 tab by mouth twice daily 201 08/09/13 AMOXICILLIN 19614225275 No Longer Active Abdirahman Rios MD Activ e AMOXICILLIN 875 MG TABS 1 tab by mouth twice daily 201 07/19/27 AMOXICILLIN 99692350301 No Longer Active Abdirahman Rios MD Activ e BACTRIM DS 800-160 MG TAB 2 tab by mouth twice daily 2 TRIMETHOPRIM-SULFAMETHOXAZOLE 77602643187 No Longer Active Abdirahman Rios MD Active KEFLEX 500 MG CAP 1 po tid x 10 days CEPHALEXIN 20467805074 No Longer Active Abdirahman Rios MD Active AMOXICILLIN 875 MG TABS 1 tab by mouth twice daily 201 07/18/07 AMOXICILLIN 62209054348 No Longer Active Abdirahman Rios MD Activ e BACTRIM DS 800-160 MG TAB 2 tab by mouth twice daily 2 BACTRIM DS 800-160 MG TAB TRIMETHOPRIM-SULFAMETHOXAZOLE Inactive ZOLOFT 50 MG TAB 1 po qd ZOLOFT 50 MG TAB 3129 41 SERTRALINE HCL Inactive BENADRYL 25 MG CAP 1 po q8hr PRN Congestion BENADRYL 25 MG CAP 7784137 DIPHENHYDRAMINE HCL Inactive 28-0.8 MG TABS Take one by mouth daily 09/20 28-0.8 MG TABS VIT-FE FUMARATE-FA Inactive HYDROCODONE-ACETAMINOPHEN 5-325 MG TABS 1 po q 6hr PRN Pain 2010 HYDROCODONE-ACETAMINOPHEN 5-325 MG TABS 421193 HYDROCODONE-ACETAMINOPHEN Inactive LORATADINE 10 MG TABS 1 tablet by mouth daily LORATADINE 10 MG TABS 718636 LORATADINE Inactive LUIS 3-0.02 MG TABS 1 tablet by mouth daily as directed LUIS 3-0.02 MG TABS DROSPIRENONE-ETHINYL ESTRADIOL Inactive VITAMINS TABS Take one by mouth daily VITAMINS TABS MV & MIN W/FE-FA TABS Inactive PERCOCET 5-325 MG TABS 1 tablet by mouth every 6 hours as ne eded for pain PERCOCET 5-325 MG TABS 0588381 OXYCODONE-ACETAMIN OPHEN Inactive PREDNISONE 20 MG TAB 2 tabs daily for 4 days, 1 t ab daily for 4 days, 1/2 tab daily for 4 days PREDNISONE 20 MG TAB 184280 PREDNISON E Inactive CLINDAMYCIN HCL 300 MG CAPS 1 po q6hr x 7 days CLINDAMYCIN HCL 300 MG CAPS 962361 CLINDAMYCIN HCL Inactive HYDROCODONE-ACETAMINOPHEN 7.5-325 MG TABS 1 po QID PRN Pain 2011 HYDROCODONE-ACETAMINOPHEN 7.5-325 MG TABS 621092 HYDROCODONE-ACETAMINOPHEN Inactive SPIRONOLACTONE 25 MG TAB 1 tablet by mouth daily 01/22 SPIRONOLACTONE 25 MG TAB 109470 SPIRONOLACTONE Inactive IBUPROFEN 600 MG TAB 1 po q6-8hr PRN IBUPROFEN 600 MG TAB 607189 IBUPROFEN Inactive FERROUS SULFATE 325 (65 FE) MG TABS 1 tablet by mouth twice yung y FERROUS SULFATE 325 (65 FE) MG TABS 442041 FERROUS SULF ATE Inactive HYDROCODONE-ACETAMINOPHEN 7.5-500 MG TABS 1-2 every 4 hours as needed HYDROCODONE-ACETAMINOPHEN 7.5-500 MG TABS 554145 HYDROCODONE-ACETAMINOPHEN Inactive GENERESS FE 0.8-25 MG-MCG CHEW [...] PRN Pain 2011 HYDROCODONE-ACETAMINOPHEN 5-325 MG TABS 477908 HYDROCODONE-ACETAMINOPHEN Inactive DOXYCYCLINE HYCLATE 100 MG CAPS Take one (1) tablet by mouth twice a day DOXYCYCLINE HYCLATE 100 MG CAPS 721136 DOXYCYCLINE HYCLATE Inactive PENICILLIN V POTASSIUM 500 MG TAB 1 four times a day 2 PENICILLIN V POTASSIUM 500 MG TAB 346973 PENICILLIN V POTASSIUM [place] ctive PRISTIQ 50 MG [id number] 1 po qd PRISTIQ 50 MG [id number] DESVENLAFAXINE SUCCINATE Inactive TYLENOL/CODEINE #3 300-30 MG TAB 1-2 po q6hr PRN Pain TYLENOL/CODEINE #3 300-30 MG TAB 095491 ACETAMINOPHEN-CODEINE Inact krishna CEPHALEXIN 500 MG TABS Take one by mouth four times daily, morning, noon, early evening and bedtime. CEPHALEXIN 500 MG TABS 641203 CEPHALEXIN Inactive LORTAB 5 5-500 MG TABS 1/2 to 1 tablet by mouth go ry 6 hours as needed for pain LORTAB 5 5-500 MG TABS HYDROCODONE-A CETAMINOPHEN Inactive AMITRIPTYLINE HCL 25 MG TAB 1 tab by mouth daily 60 minutes before bedtime AMITRIPTYLINE HCL 25 MG TAB 162783 AMITRIPTYLINE HCL Inactive AMOXICILLIN 500 MG TABS 2 tabs PO bid x 10 d 7 AMOXICILLIN 500 MG TABS 861091 AMOXICILLIN Inactive IMPLANON 68 MG IMPL IMPLANTED IN LEFT ARM IMPLANON 68 MG IMPL ETONOGESTREL Inactive HYDROCODONE-ACETAMINOPHEN 5-325 MG TABS 1 PO tid PRN pain 5 HYDROCODONE-ACETAMINOPHEN 5-325 MG TABS 803052 HYDROCODONE-ACETAMIN OPHEN Inactive BACTRIM DS 800-160 MG TAB 1 tab by mouth twice daily 2 BACTRIM DS 800-160 MG TAB TRIMETHOPRIM-SULFAMETHOXAZOLE Inac tive CEPHALEXIN 500 MG CAPS 1 PO bid x 7 days CEPHALEXIN 500 MG CAPS 772101 CEPHALEXIN Inactive HYDROCODONE-ACETAMINOPHEN 5-325 MG TABS 1 tab by mouth every 6 hours as needed HYDROCODONE-ACETAMINOPHEN 5-325 MG TABS 648113 HYDROCODONE-ACETAMINOPHEN Inactive PROMETHAZINE-CODEINE 6.25-10 MG/5ML SYRP 1 tsp every 6 hrs prn c ough PROMETHAZINE-CODEINE 6.25-10 MG/5ML SYRP 825214 PROMETH AZINE-CODEINE Inactive IBUPROFEN 800 MG TAB 1 pill three times daily as needed for pain IBUPROFEN 800 MG TAB 581467 IBUPROFEN Inactive KEFLEX 500 MG CAP 1 tab po tid KEFLEX 500 MG CAP 401330 CEPHALEXIN Inactive HYDROCODONE-ACETAMINOPHEN 7.5-325 MG TABS 1 four times a day as needed for pain HYDROCODONE-ACETAMINOPHEN 7.5-325 MG TABS 414777 HYDROCODONE-ACETAMINOPHEN Inactive BACTRIM DS 800-160 MG TABS by mouth twice a day 11/05 BACTRIM DS 800-160 MG TABS SULFAMETHOXAZOLE-TRIMETHOPRIM Inactive AMOXICILLIN 875 MG TABS 1 tab by mouth twice daily 201 07/18/07 AMOXICILLIN 875 MG TABS 182685 AMOXICILLIN Inactive KEFLEX 500 MG CAP 1 po tid x 10 days KEFLEX 500 MG CAP 226923 CEPHALEXIN Inactive AMOXICILLIN 875 MG TABS 1 tab by mouth twice daily 201 07/19/27 AMOXICILLIN 875 MG TABS 539938 AMOXICILLIN Inactive AMOXICILLIN 875 MG TABS 1 tab by mouth twice daily 08/09/13 AMOXICILLIN 875 MG TABS 593064 AMOXICILLIN Inactive CIPRO 500 MG TAB 1 tablet by mouth twice daily CIPRO 500 MG TAB 877067 CIPROFLOXACIN HCL Inactive BACTRIM DS 800-160 MG TAB 1 tab by mouth twice daily 2 BACTRIM DS 800-160 MG TAB TRIMETHOPRIM-SULFAMETHOXAZOLE Inac tive LEVAQUIN 500 MG TABS 1 PO q day x 7 days LEVAQUIN 500 MG TABS 984529 LEVOFLOXACIN Inactive Advance Directives Directive Description Start Date PERMISSION TO SHARE Immunizations Vaccine Administration Date Value Standard Alf cription Seasonal influenza vaccine, injectable, containing preservative, for > 3 years old (Afluria, FluLaval, Fluzone, Fluvirin, Fluarix, Agriflu(>= 18 yo)) Fluzone (>3 yrs.) [[id number]] Influenza, seasonal, inject able Seasonal influenza vaccine, injectable, preservative free, for > 3 years old (Afluria, FluLaval, Fluzone, Fluvirin, Fluarix, Agriflu(>= 18 yo)) Fluzone preservative free (>3 yrs.) [BSD159] Influenza, seasonal, injectable, preservative free Seasonal influenza vaccine, injectable, containing preservative, for > 3 years old (Afluria, FluLaval, Fluzone, Fluvirin, Fluarix, Agriflu(>= 18 yo)) Fluzone (>3 yrs.) [SFL891] Influenza, seasonal, inject able Seasonal influenza vaccine, injectable, containing preservative, for > 3 years old (Afluria, FluLaval, Fluzone, Fluvirin, Fluarix, Agriflu(>= 18 yo)) Fluzone (>3 yrs.) [[id number]] Influenza, seasonal, inject able dT (Diphtheria and [...] ... - Chemistry sodium, serum 140 mmol/L 032-805 4493/02/24 potassium, serum 4.3 mmol/L 3.5-5.2 chloride, serum [...] 4.3-6.0 Lab Report: T3, TOTAL, INSULIN - Belt Maker Helper ry triiodothyronine, serum 78 ng/dL 76-181 Lab [...] mg/dL Encounters Code Encounter Date Provider Facility CPT-74149 Level 3 Est. Patient 14:11:58 CDT Kalpesh goins MD [facility] CPT-48345 Level 3 Est. Patient 16:50:00 CDT Michelle MERCADO [facility] CPT-35844 Level 3 Est. Patient 17:11:32 SUPERVISOR FIBER LOCKING Brandie bates MD PhD [facility] CPT-56066 Level 3 Est. Patient 16:31:47 SUPERVISOR FIBER LOCKING Shola MCGILL [facility] CPT-52232 Level 3 Est. Patient 17:51:10 SUPERVISOR FIBER LOCKING Abhinav Galvan MD [facility] CPT-64881 Level 4 Est. Patient 12:54:56 SUPERVISOR FIBER LOCKING Kalpesh goins MD [facility] CPT-64837 Level 4 Est. Patient 12:53:56 SUPERVISOR FIBER LOCKING Kalpesh goins MD [facility] CPT-11986 Level 3 Est. Patient 17:56:58 CDT Shola Wright [facility] CPT-82975 Level 3 Est. Patient 14:26:20 CDT Janak butcher [facility] CPT-15862 Level 3 Est. Patient 09:38:41 CDT Shola Keesha Wright [facility] CPT-44872 Level 3 Est. Patient 14:45:26 CDT Edilberto tiwari [facility]-30066 Level 3 Est. Patient 10:51:33 [facility] Level 3 Est. Patient 11:57:55 SUPERVISOR FIBER LOCKING Shola Thao Adriana [facility] CPT-60249 Level 3 Est. Patient 09:53:33 SUPERVISOR FIBER LOCKING Edilberto tiwari [facility] CPT-48205 Level 3 Est. Patient 14:42:54 SUPERVISOR FIBER LOCKING Abhinav Galvan MD [facility] CPT-62461 Level 3 Est. Patient 15:10:02 CDT Janak butcher [facility] CPT-39264 Level 3 Est. Patient 15:20:20 CDT Theo dennis MD [facility] CPT-01426 Level 2 Est. Patient 14:08:57 CDT Kalpesh goins MD [facility]-05630 Level 3 Est. Patient 13:56:19 CDT Abdirahman Rios MD [facility] CPT-68000 Level 3 Est. Patient 13:59:37 CDT Abdirahman Rios MD [facility] CPT-62951 Level 2 Est. Patient 14:44:59 CDT Kalpesh goins MD [facility] CPT-35883 Level 3 Est. Patient 06:06:23 CDT Edilberto tiwari DO [facility] CPT-92985 Level 3 Est. Patient 15:23:54 CDT Abdirahman Rios MD [facility] CPT-87203 Level 3 Est. Patient 15:43:49 CDT Abdirahman Rios MD [facility] CPT-89054 Level 3 Est. Patient 12:46:47 SUPERVISOR FIBER LOCKING Abdirahman Rios MD [facility] CPT-80006 Level 3 Est. Patient 08:13:35 SUPERVISOR FIBER LOCKING Abdirahman Rios MD [facility] CPT-20276 Level 2 Est. Patient 09:36:42 SUPERVISOR FIBER LOCKING Abdirahman Rios MD [facility] CPT-76628 Level 3 Est. Patient 10:56:43 CDT Abdirahman Rios MD [facility] CPT-24768 Level 3 Est. Patient 18:24:52 CDT Abdirahman Rios MD [facility] CPT-99656 Level 3 Est. Patient 13:27:22 CDT Abdirahman Rios MD [facility] Procedures Code Procedure Name Date Entry Date Standard Desc ription CPT-OV Office Visit 15:34:48 CDT CPT-51739 Postop F/U Visit 14:50:12 CDT CPT-66436 Postop F/U Visit 14:41:10 CDT CPT-92470 Venipuncture Draw Fee 11:38:04 SUPERVISOR FIBER LOCKING CPT-43890 Postop F/U Visit 19:02:59 SUPERVISOR FIBER LOCKING CPT-75960 Postop F/U Visit 12:04:54 SUPERVISOR FIBER LOCKING CPT-78234 Administration single or combination vac cine inc oral 15:56:43 CDT CPT-15853 Influenza split virus > age 3 15:56:43 CDT CPT-42968 Hand comp min 3V 14:25:19 CDT CPT-11142 Postop F/U Visit 21:40:51 CDT CPT-00660 Postop F/U Visit 10:58:43 CDT CPT-26791 Administration single or combination vac cine inc oral 12:33:54 SUPERVISOR FIBER LOCKING CPT-55814 Influenza Preservative Free split virus >age 3 12:33:54 SUPERVISOR FIBER LOCKING CPT-24144 Administration single or combination vac cine inc oral 09:30:51 CDT CPT-16358 Influenza split virus > age 3 09:30:51 CDT CPT-46530 Postop F/U Visit 15:14:53 CDT CPT-69035 Postop F/U Visit 13:50:14 CDT CPT-43565 Postop F/U Visit 13:34:52 CDT CPT-OV Office Visit 16:55:03 CDT CPT-28200 [place] of cervix w bx ECC 13:32:50 CDT 10/19 CPT-J1885 Toradol 60 mg (Ketorolac) 15:31:59 CDT 2011 CPT-J1885 Toradol 60 mg (Ketorolac) 15:23:54 CDT 2011 CPT-00307 Visit 11:34:37 SUPERVISOR FIBER LOCKING CPT-82837 Visit 10:52:39 SUPERVISOR FIBER LOCKING CPT-26457 Visit 10:12:02 SUPERVISOR FIBER LOCKING CPT-34096 Visit 11:22:43 SUPERVISOR FIBER LOCKING CPT-69505 Visit 11:24:12 SUPERVISOR FIBER LOCKING CPT-77031 Visit 10:47:05 SUPERVISOR FIBER LOCKING CPT-OV Office Visit 10:26:16 SUPERVISOR FIBER LOCKING CPT-OV Office Visit 15:34:31 SUPERVISOR FIBER LOCKING CPT-05007 Visit 10:42:08 SUPERVISOR FIBER LOCKING CPT-79448 Visit 10:52:45 SUPERVISOR FIBER LOCKING CPT-000 Give Appropriate Flu Vaccine 16:56:41 CDT 2 CPT-61374 Administration single or combination vac cine inc oral 10:33:21 CDT CPT-54125 Influenza split virus > age 3 10:33:21 CDT CPT-40302 Visit 13:23:09 CDT CPT-97520 Visit 18:24:52 CDT CPT-90143 Sono OB comp > 14 weeks 12:07:49 CDT 04/07
--- OUTSIDE RECORDS SUMMARY | 2020-01-18 17:13 | XMS REPORT ---
Author [facility] Staff, TOMY Rashid Organization [facility] Address [address] [place], [place] [address] Phone [phone] Care Team Providers Care Land Title Examiner Name Role Phone CHRISTOPHER YORK, CAROLEE PP [phone] Summary purpose TRANSITION OF CARE AUTO GENERATION Chief Complaint and Reason for Visit Admit Diagnosis 1 CELLULITIS OF TRUNK Problem list No authorized problems tracked for [...] Code Type Description Date Performed Performing Physician 86.04 ICD9-CM OTHER SKIN SUBQ I D 06-08-2014 ER IC LAURA J2405 CPT-4 ONDANSETRON HCL INJECTION 06-08-2014 JOHN SANCHEZ J1170 CPT-4 HYDROMORPHONE INJECTION 06-08-2014 ER IC LAURA J2060 CPT-4 LORAZEPAM INJECTION 06-08-2014 JOHN MARTINEZ J1170 CPT-4 HYDROMORPHONE INJECTION 06-08-2014 ER IC LAURA 82011 CPT-4 EMERGENCY DEPT VISIT 06-08-2014 JOHN SANCHEZ 67780 CPT-4 DRAINAGE OF SKIN ABSCESS 06-08-2014 E VIVEK SANCHEZ 65672 CPT-4 DRAINAGE OF SKIN ABSCESS 06-08-2014 E VIVEK SANCHEZ 61246 CPT-4 THER/PROPH/DIAG INJ, IV PUSH 06-08-2014 JOHN SANCHEZ 54297 CPT-4 TX/PRO/DX INJ NEW DRUG CHEMICAL LABORATORY ASSISTANT 06-08-2014 JOHN SANCHEZ 09867 CPT-4 TX/PRO/DX INJ NEW DRUG ADDON 06-08-2014 JOHN SANCHEZ Functional status No functional or cognitive status observations are available for this visit. Vital signs Type Value Date Respiration Rate 18breaths per minute : 54 Pulse 91beats per minute :54 Oxygen Saturation 98% :54 BP Systolic 134mmHg :54 BP Diastolic 81mmHg :54 Temperature 99.2F :54 Height 63inches :53 Weight 235LB [id number]:53 Social history Type Value Smoking Status CURRENT EVERY DAY SMOKER Treatment Plan No treatment plan text is available for this visit. Hospital discharge instructions Dismissal Condition good Disposition on DC home DC Inst/Educ Give yes Med/Side Effects Rev yes
--- OUTSIDE RECORDS SUMMARY | 2020-01-18 17:14 | XMS REPORT | Clinical Summary ---
Author Author Admin, Jeri Rashid Organization [facility] Address Unknown Phone Unavailable Allergies, Adverse [...] caries, unspecified ABSCESS, INNER THIGH 682.6 Resolved Mnoi Julian MD Cellulitis and abscess of leg, [...] MD Dysuria Hypoglycemia 251.2 Active Ojann Faux RMA Hypoglycemia, unspecified Anxiety 300.00 Active [...] 15 MG TABS 1 tab daily MELOXICAM 44509980830 Ac jason Julian MD Active PERCOCET 7.5-325 MG TABS 1 PO q 8 hrs PRN pain OXYCODONE-ACETAMINOPHEN 24688554165 No Longer Active Shola MCGILL Active HYDROCODONE-ACETAMINOPHEN 10-325 MG TABS 1 by mouth ev chaka 8 hours as needed for pain HYDROCODONE-ACETAMINOPHEN 92239136206 Active Shola MCGILL Active HYDROCODONE-ACETAMINOPHEN 7.5-325 MG TABS 1 by mouth e very 6 hours as needed for pain HYDROCODONE-ACETAMINOPHEN 63476127307 No Longer Active Good Julian MD Active LC-5 LIDOCAINE 5 % CREA apply 1 time daily to affected area LIDOCAINE (ANORECTAL) 82149172163 Active Shola MCGILL Active CLINDAMYCIN HCL 300 MG CAPS 1 po QID x 7 days CLINDAMYCIN HCL 65576952675 No Longer Active Abdirahman Rios MD Activ e BACTRIM DS 800-160 MG TABS 1 po BID x 7 days 5 SULFAMETHOXAZOLE-TRIMETHOPRIM 79163908951 No Longer Active Abdirahman Rios MD Active ENDOCET 10-325 MG TABS 1 q 6 hr prn OXYCODONE-ACETAMINOPHEN 81690609969 No Longer Active Abdirahman Rios MD Active IBUPROFEN 800 MG TABS 1 tid prn IBUPROFEN 244282 48888 No Longer Active Abdirahman Rios MD Active BACTRIM DS 800-160 MG TABS by mouth twice a day 11/05 SULFAMETHOXAZOLE-TRIMETHOPRIM 93705980806 No Longer Active Good Julian MD Active HYDROCODONE-ACETAMINOPHEN 7.5-325 MG TABS 1 four times a day as needed for pain HYDROCODONE-ACETAMINOPHEN 17074764857 No Longer Activ e Good Julian MD Active KEFLEX 500 MG CAP 1 tab po tid CEPHALEXIN 060688 37849 No Longer Active Hira Moser APRN Active IBUPROFEN 800 MG TAB 1 pill three times daily as needed for pain IBUPROFEN 97236085768 No Longer Active Kalpesh Dong MD Active PROMETHAZINE-CODEINE 6.25-10 MG/5ML SYRP 1 tsp every 6 hrs prn c ough PROMETHAZINE-CODEINE 43733846759 No Longer Active Kalpesh Carr Active ALPRAZOLAM 0.5 MG TABS 1 PO bid PRN ALPRAZOLAM 766377 46270 Active Shola MCGILL Active HYDROCODONE-ACETAMINOPHEN 5-325 MG TABS 1 tab by mouth every 6 hours as needed HYDROCODONE-ACETAMINOPHEN 89985138358 No Longer Activ e Shola MCGILL Active CEPHALEXIN 500 MG CAPS 1 PO bid x 7 days CEPHAL EXIN 47194478826 No Longer Active Shola MCGILL Active BACTRIM DS 800-160 MG TAB 1 tab by mouth twice daily 2 TRIMETHOPRIM-SULFAMETHOXAZOLE 75180082548 No Longer Active Kalpesh Dong MD Active HYDROCODONE-ACETAMINOPHEN 5-325 MG TABS 1 PO tid PRN pain 5 HYDROCODONE-ACETAMINOPHEN 22956147872 No Longer Active Abhinav Galvan MD Active IMPLANON 68 MG IMPL IMPLANTED IN LEFT ARM ETONO GESTREL 42058898268 No Longer Active Jielias [facility] Active AMOXICILLIN 500 MG TABS 2 tabs PO bid x 10 d AM OXICILLIN 65039227652 No Longer Active Kalpesh Dong MD Active LEVAQUIN 500 MG TABS 1 PO q day x 7 days LEVOFL OXACIN 31837556213 No Longer Active Shola MCGILL Active PROAIR HFA 108 (90 BASE) MCG/ACT AERS 2 puff q 4-6 hrs PRN ALBUTEROL SULFATE 54703640886 Active Shola MCGILL Acti ve FIORICET 50-325-40 MG TABS 2 PO q 8 hrs PRN FOSTER [id number] Active Shola MCGILL Active AMITRIPTYLINE HCL 25 MG TAB 1 tab by mouth daily 60 minutes before bedtime AMITRIPTYLINE HCL 25669237786 No Longer Active Shola MCGILL Active LORTAB 5 5-500 MG TABS 1/2 to 1 tablet by mouth go ry 6 hours as needed for pain HYDROCODONE-ACETAMINOPHEN 22698944950 No Longer Active Shola MCGILL Active CEPHALEXIN 500 MG TABS Take one by mouth four times daily, morning, noon, early evening and bedtime. CEPHALEXIN 17608616680 No Long er Active Hira Peraza[facility] Active TYLENOL/CODEINE #3 300-30 MG TAB 1-2 po q6hr PRN Pain ACETAMINOPHEN-CODEINE 30589612842 No Longer Active Edilberto Marino DO Active PRISTIQ 50 MG [id number] 1 po qd DESVENLAFAXI NE SUCCINATE 64685164796 No Longer Active Edilberto Marino DO Active PENICILLIN V POTASSIUM 500 MG TAB 1 four times a day 2 PENICILLIN V POTASSIUM 16496823929 No Longer Active Edilberto Marino DO Active DOXYCYCLINE HYCLATE 100 MG CAPS Take one (1) tablet by mouth twice a day DOXYCYCLINE HYCLATE 63709824860 No Longer Active Ronnie Galvan MD Active HYDROCODONE-ACETAMINOPHEN 5-325 MG TABS 1 po q 6hr PRN Pain 2011 HYDROCODONE-ACETAMINOPHEN 06509661454 No Longer Active Patri joan Perez RN Active BACTRIM DS 800-160 MG TAB 1 tab by mouth twice daily 2 TRIMETHOPRIM-SULFAMETHOXAZOLE 24448341880 No Longer Active Kalpesh Dong MD Active LORTAB 5 5-500 MG TABS 1/2 to 1 tablet by mouth go ry 4 hours as needed for pain HYDROCODONE-ACETAMINOPHEN 08767599027 No Longer Active Kalpesh Dong MD Active GENERESS FE 0.8-25 MG-MCG CHEW Take one by mouth daily NORETHIN-ETH ESTRADIOL-FE 29763455063 No Longer Active Kalpesh Dong MD Active HYDROCODONE-ACETAMINOPHEN 7.5-500 MG TABS 1-2 every 4 hours as needed HYDROCODONE-ACETAMINOPHEN 78023647683 No Longer Activ e Kalpesh Dong MD Active FERROUS SULFATE 325 (65 FE) MG TABS 1 tablet by mouth twice yung y FERROUS SULFATE 95353633042 No Longer Active Kalpesh Dong MD Active IBUPROFEN 600 MG TAB 1 po q6-8hr PRN IBUPROFEN 30971457651 No Longer Active Kalpesh Dong MD Active SPIRONOLACTONE 25 MG TAB 1 tablet by mouth daily 01/22 SPIRONOLACTONE 82425323963 No Longer Active Kalpesh Dong MD Acti ve HYDROCODONE-ACETAMINOPHEN 7.5-325 MG TABS 1 po QID PRN Pain 2011 HYDROCODONE-ACETAMINOPHEN 84964496084 No Longer Active Kalpesh Dong MD Active CLINDAMYCIN HCL 300 MG CAPS 1 po q6hr x 7 days CLINDAMYCIN HCL 52157681062 No Longer Active Edilberto Marino DO Active PREDNISONE 20 MG TAB 2 tabs daily for 4 days, 1 t ab daily for 4 days, 1/2 tab daily for 4 days PREDNISONE 24297315462 No Longer Active Edilberto Marino DO Active PERCOCET 5-325 MG TABS 1 tablet by mouth every 6 hours as ne eded for pain OXYCODONE-ACETAMINOPHEN 20106397764 No Longer Active Abdirahman Rios MD Active VITAMINS TABS Take one by mouth daily MV & MIN W/FE-FA TABS 02827882510 No Longer Active Abdirahman Rios MD Active LUIS 3-0.02 MG TABS 1 tablet by mouth daily as directed DROSPIRENONE-ETHINYL ESTRADIOL 40062188994 No Longer Active Abdirahman Rios MD Active LORATADINE 10 MG TABS 1 tablet by mouth daily L ORATADINE 86386997102 No Longer Active Kalpesh Dong MD Active HYDROCODONE-ACETAMINOPHEN 5-325 MG TABS 1 po q 6hr PRN Pain 2010 HYDROCODONE-ACETAMINOPHEN 78095401640 No Longer Active Edilberto Marino DO Active BACTRIM DS 800-160 MG TAB 1 tab by mouth twice daily 2 TRIMETHOPRIM-SULFAMETHOXAZOLE 95430656772 No Longer Active Abdirahman Rios MD Active 28-0.8 MG TABS Take one by mouth daily 09/20 VIT-FE FUMARATE-FA 47407921704 No Longer Active Abdirahman Rios MD Active CIPRO 500 MG TAB 1 tablet by mouth twice daily CIPROFLOXACIN HCL 38201090878 No Longer Active Abdirahman Rios MD Active BENADRYL 25 MG CAP 1 po q8hr PRN Congestion DIPHENHYDRAMINE HCL 74719943050 No Longer Active Abdirahman Rios MD Active ZOLOFT 50 MG TAB 1 po qd SERTRALINE HCL 715935 23828 No Longer Active Abdirahman Rios MD Active AMOXICILLIN 875 MG TABS 1 tab by mouth twice daily 201 08/09/13 AMOXICILLIN 98875218955 No Longer Active Abdirahman Rios MD Activ e AMOXICILLIN 875 MG TABS 1 tab by mouth twice daily 201 07/19/27 AMOXICILLIN 82266044267 No Longer Active Abdirahman Rios MD Activ e BACTRIM DS 800-160 MG TAB 2 tab by mouth twice daily 2 TRIMETHOPRIM-SULFAMETHOXAZOLE 11106127815 No Longer Active Abdirahman Rios MD Active KEFLEX 500 MG CAP 1 po tid x 10 days CEPHALEXIN 34194450136 No Longer Active Abdirahman Rios MD Active AMOXICILLIN 875 MG TABS 1 tab by mouth twice daily 201 07/18/07 AMOXICILLIN 86836936361 No Longer Active Abdirahman Rios MD Activ e BACTRIM DS 800-160 MG TAB 2 tab by mouth twice daily 2 BACTRIM DS 800-160 MG TAB TRIMETHOPRIM-SULFAMETHOXAZOLE Inactive ZOLOFT 50 MG TAB 1 po qd ZOLOFT 50 MG TAB 3129 41 SERTRALINE HCL Inactive BENADRYL 25 MG CAP 1 po q8hr PRN Congestion BENADRYL 25 MG CAP 7111150 DIPHENHYDRAMINE HCL Inactive 28-0.8 MG TABS Take one by mouth daily 09/20 28-0.8 MG TABS VIT-FE FUMARATE-FA Inactive HYDROCODONE-ACETAMINOPHEN 5-325 MG TABS 1 po q 6hr PRN Pain 2010 HYDROCODONE-ACETAMINOPHEN 5-325 MG TABS 079079 HYDROCODONE-ACETAMINOPHEN Inactive LORATADINE 10 MG TABS 1 tablet by mouth daily LORATADINE 10 MG TABS 831032 LORATADINE Inactive LUIS 3-0.02 MG TABS 1 tablet by mouth daily as directed LUIS 3-0.02 MG TABS DROSPIRENONE-ETHINYL ESTRADIOL Inactive VITAMINS TABS Take one by mouth daily VITAMINS TABS MV & MIN W/FE-FA TABS Inactive PERCOCET 5-325 MG TABS 1 tablet by mouth every 6 hours as ne eded for pain PERCOCET 5-325 MG TABS 3873853 OXYCODONE-ACETAMIN OPHEN Inactive PREDNISONE 20 MG TAB 2 tabs daily for 4 days, 1 t ab daily for 4 days, 1/2 tab daily for 4 days PREDNISONE 20 MG TAB 727738 PREDNISON E Inactive CLINDAMYCIN HCL 300 MG CAPS 1 po q6hr x 7 days CLINDAMYCIN HCL 300 MG CAPS 316164 CLINDAMYCIN HCL Inactive HYDROCODONE-ACETAMINOPHEN 7.5-325 MG TABS 1 po QID PRN Pain 2011 HYDROCODONE-ACETAMINOPHEN 7.5-325 MG TABS 533958 HYDROCODONE-ACETAMINOPHEN Inactive SPIRONOLACTONE 25 MG TAB 1 tablet by mouth daily 01/22 SPIRONOLACTONE 25 MG TAB 105139 SPIRONOLACTONE Inactive IBUPROFEN 600 MG TAB 1 po q6-8hr PRN IBUPROFEN 600 MG TAB 739297 IBUPROFEN Inactive FERROUS SULFATE 325 (65 FE) MG TABS 1 tablet by mouth twice yung y FERROUS SULFATE 325 (65 FE) MG TABS 939663 FERROUS SULF ATE Inactive HYDROCODONE-ACETAMINOPHEN 7.5-500 MG [...] PRN Pain 2011 HYDROCODONE-ACETAMINOPHEN 5-325 MG TABS 484345 HYDROCODONE-ACETAMINOPHEN Inactive DOXYCYCLINE HYCLATE 100 MG CAPS Take one (1) tablet by mouth twice a day DOXYCYCLINE HYCLATE 100 MG CAPS 671101 DOXYCYCLINE HYCLATE Inactive PENICILLIN V POTASSIUM 500 MG TAB 1 four times a day 2 PENICILLIN V POTASSIUM 500 MG TAB 442418 PENICILLIN V POTASSIUM Siri ctive PRISTIQ 50 MG [id number] 1 po qd PRISTIQ 50 MG [id number] DESVENLAFAXINE SUCCINATE Inactive TYLENOL/CODEINE #3 300-30 MG TAB 1-2 po q6hr PRN Pain TYLENOL/CODEINE #3 300-30 MG TAB 658535 ACETAMINOPHEN-CODEINE Inact krishna CEPHALEXIN 500 MG TABS Take one by mouth four times daily, morning, noon, early evening and bedtime. CEPHALEXIN 500 MG TABS 004380 CEPHALEXIN Inactive LORTAB 5 5-500 MG TABS 1/2 to 1 tablet by mouth go ry 6 hours as needed for pain LORTAB 5 5-500 MG TABS HYDROCODONE-A CETAMINOPHEN Inactive AMITRIPTYLINE HCL 25 MG TAB 1 tab by mouth daily 60 minutes before bedtime AMITRIPTYLINE HCL 25 MG TAB 411805 AMITRIPTYLINE HCL Inactive AMOXICILLIN 500 MG TABS 2 tabs PO bid x 10 d 7 AMOXICILLIN 500 MG TABS 422379 AMOXICILLIN Inactive IMPLANON 68 MG IMPL IMPLANTED IN LEFT ARM IMPLANON 68 MG IMPL ETONOGESTREL Inactive HYDROCODONE-ACETAMINOPHEN 5-325 MG TABS 1 PO tid PRN pain 5 HYDROCODONE-ACETAMINOPHEN 5-325 MG TABS 481631 HYDROCODONE-ACETAMIN OPHEN Inactive BACTRIM DS 800-160 MG TAB 1 tab by mouth twice daily 2 BACTRIM DS 800-160 MG TAB TRIMETHOPRIM-SULFAMETHOXAZOLE Inac tive CEPHALEXIN 500 MG CAPS 1 PO bid x 7 days CEPHALEXIN 500 MG CAPS 141250 CEPHALEXIN Inactive HYDROCODONE-ACETAMINOPHEN 5-325 MG TABS 1 tab by mouth every 6 hours as needed HYDROCODONE-ACETAMINOPHEN 5-325 MG TABS 113951 HYDROCODONE-ACETAMINOPHEN Inactive PROMETHAZINE-CODEINE 6.25-10 MG/5ML SYRP 1 tsp every 6 hrs prn c ough PROMETHAZINE-CODEINE 6.25-10 MG/5ML SYRP 046658 PROMETH AZINE-CODEINE Inactive IBUPROFEN 800 MG TAB 1 pill three times daily as needed for pain IBUPROFEN 800 MG TAB 705084 IBUPROFEN Inactive KEFLEX 500 MG CAP 1 tab po tid KEFLEX 500 MG CAP 271572 CEPHALEXIN Inactive HYDROCODONE-ACETAMINOPHEN 7.5-325 MG TABS 1 four times a day as needed for pain HYDROCODONE-ACETAMINOPHEN 7.5-325 MG TABS 573507 HYDROCODONE-ACETAMINOPHEN Inactive BACTRIM DS 800-160 MG TABS by mouth twice a day 11/05 BACTRIM DS 800-160 MG TABS SULFAMETHOXAZOLE-TRIMETHOPRIM Inactive IBUPROFEN 800 MG TABS 1 tid prn IBUPROFEN 800 MG TABS 740683 IBUPROFEN Inactive ENDOCET 10-325 MG TABS 1 q 6 hr prn ENDOC ET 10-325 MG TABS 1085778 OXYCODONE-ACETAMINOPHEN Inactive HYDROCODONE-ACETAMINOPHEN 7.5-325 MG TABS 1 by mouth e very 6 hours as needed for pain HYDROCODONE-ACETAMINOPHEN 7.5-325 MG TABS 806188 HYDROCODONE-ACETAMINOPHEN Inactive PERCOCET 7.5-325 MG TABS 1 PO q 8 hrs PRN pain PERCOCET 7.5-325 MG TABS 0678048 OXYCODONE-ACETAMINOPHEN Inactive AMOXICILLIN 875 MG TABS 1 tab by mouth twice daily 201 07/18/07 AMOXICILLIN 875 MG TABS 010355 AMOXICILLIN Inactive KEFLEX 500 MG CAP 1 po tid x 10 days KEFLEX 500 MG CAP 805936 CEPHALEXIN Inactive AMOXICILLIN 875 MG TABS 1 tab by mouth twice daily 201 07/19/27 AMOXICILLIN 875 MG TABS 384270 AMOXICILLIN Inactive AMOXICILLIN 875 MG TABS 1 tab by mouth twice daily 201 08/09/13 AMOXICILLIN 875 MG TABS 309087 AMOXICILLIN Inactive CIPRO 500 MG TAB 1 tablet by mouth twice daily CIPRO 500 MG TAB 891161 CIPROFLOXACIN HCL Inactive BACTRIM DS 800-160 MG TAB 1 tab by mouth twice daily 2 BACTRIM DS 800-160 MG TAB TRIMETHOPRIM-SULFAMETHOXAZOLE Inac tive LEVAQUIN 500 MG TABS 1 PO q day x 7 days LEVAQUIN 500 MG TABS 102416 LEVOFLOXACIN Inactive CLINDAMYCIN HCL 300 MG CAPS 1 po QID x 7 days CLINDAMYCIN HCL 300 MG CAPS 054906 CLINDAMYCIN HCL Inactive Advance Directives Directive Description Start Date PERMISSION TO SHARE Immunizations Vaccine Administration Date Value Standard Alf cription Seasonal influenza vaccine, injectable, containing preservative, for > 3 years old (Afluria, FluLaval, Fluzone, Fluvirin, Fluarix, Agriflu(>= 18 yo)) Fluzone (>3 yrs.) [[id number]] Influenza, seasonal, inject able Seasonal influenza vaccine, injectable, preservative free, for > 3 years old (Afluria, FluLaval, Fluzone, Fluvirin, Fluarix, Agriflu(>= 18 yo)) Fluzone preservative free (>3 yrs.) [[id number]] Influenza, seasonal, injectable, preservative free Seasonal influenza vaccine, injectable, containing preservative, for > 3 years old (Afluria, FluLaval, Fluzone, Fluvirin, Fluarix, Agriflu(>= 18 yo)) Fluzone (>3 yrs.) [[id number]] Influenza, seasonal, inject able Seasonal influenza vaccine, injectable, containing preservative, for > 3 years old (Afluria, FluLaval, Fluzone, Fluvirin, Fluarix, Agriflu(>= 18 yo)) Fluzone (>3 yrs.) [[id number]] Influenza, seasonal, inject able dT (Diphtheria and [...] ... - Chemistry sodium, serum 140 mmol/L 269-626 5553/02/24 potassium, serum 4.3 mmol/L 3.5-5.2 chloride, serum [...] 4.3-6.0 Lab Report: T3, TOTAL, INSULIN - Web Design Intern ry triiodothyronine, serum 78 ng/dL 76-181 Lab [...] mg/dL Encounters Code Encounter Date Provider Facility CPT-43706 Level 3 Est. Patient 19:34:46 CDT Shola MCGILL [facility] CPT-43713 Level 3 Est. Patient 14:19:37 CDT Abdirahman Rios MD [facility] CPT-41345 Level 3 Est. Patient 14:11:58 CDT Kalpesh goins MD [facility] CPT-68946 Level 3 Est. Patient 16:50:00 CDT Michelle MERCADO [facility] CPT-74319 Level 3 Est. Patient 17:11:32 GRAPHIC ARTS INSTRUCTOR Brandie bates MD PhD [facility] CPT-36645 Level 3 Est. Patient 16:31:47 GRAPHIC ARTS INSTRUCTOR Shola MCGILL [facility] CPT-49114 Level 3 Est. Patient 17:51:10 GRAPHIC ARTS INSTRUCTOR Abhinav Galvan MD [facility] CPT-37313 Level 4 Est. Patient 12:54:56 GRAPHIC ARTS INSTRUCTOR Kalpesh goins MD [facility]-22333 Level 4 Est. Patient 12:53:56 GRAPHIC ARTS INSTRUCTOR Kalpesh goins MD [facility]-38428 Level 3 Est. Patient 17:56:58 CDT [facility] CPT-73790 Level 3 Est. Patient 14:26:20 CDT [facility] CPT-27469 Level 3 Est. Patient 09:38:41 CDT Shola Thao [facility] CPT-77497 Level 3 Est. Patient 14:45:26 CDT Edilberto tiwair [facility] CPT-50915 Level 3 Est. Patient 10:51:33 CDT [facility] Patient 11:57:55 GRAPHIC ARTS INSTRUCTOR [facility] CPT-31236 Level 3 Est. Patient 09:53:33 GRAPHIC ARTS INSTRUCTOR Edilberto tiwari [facility] CPT-28564 Level 3 Est. Patient 14:42:54 GRAPHIC ARTS INSTRUCTOR Abhinav Galvan MD [facility]-07697 Level 3 Est. Patient 15:10:02 CDT Janak butcher [facility] CPT-86223 Level 3 Est. Patient 15:20:20 CDT Theo dennis MD [facility]-67264 Level 2 Est. Patient 14:08:57 CDT Kalpesh goins MD [facility]-09611 Level 3 Est. Patient 13:56:19 CDT Abdirahman Rios MD [facility] CPT-69860 Level 3 Est. Patient 13:59:37 CDT Abdirahman Rios MD [facility] CPT-80229 Level 2 Est. Patient 14:44:59 CDT Kalpesh goins MD [facility] CPT-74737 Level 3 Est. Patient 06:06:23 CDT Edilberto tiwari DO [facility] CPT-77115 Level 3 Est. Patient 15:23:54 CDT Abdirahman Rios MD [facility] CPT-29119 Level 3 Est. Patient 15:43:49 CDT Abdirahman Rios MD [facility] CPT-02472 Level 3 Est. Patient 12:46:47 GRAPHIC ARTS INSTRUCTOR Abdirahman Rios MD [facility] CPT-77253 Level 3 Est. Patient 08:13:35 GRAPHIC ARTS INSTRUCTOR Abdirahman Rios MD [facility] CPT-72341 Level 2 Est. Patient 09:36:42 GRAPHIC ARTS INSTRUCTOR Abdirahman Rios MD [facility] CPT-80692 Level 3 Est. Patient 10:56:43 CDT Abdirahman Rios MD [facility] CPT-91416 Level 3 Est. Patient 18:24:52 CDT Abdirahman Rios MD [facility] CPT-90055 Level 3 Est. Patient 13:27:22 CDT Abdirahman Rios MD [facility] Procedures Code Procedure Name Date Entry Date Standard Desc ription CPT-34635 Immunization Single Admin 16:41:53 CDT 2013 CPT-49606 Fluzone Quadrivalent Intramuscular Suspe nsion 0.5 ML 16:41:53 CDT CPT-OV Office Visit 16:39:18 CDT CPT-OV Office Visit 16:16:36 CDT CPT-OV Office Visit 15:34:48 CDT CPT-08033 Postop F/U Visit 14:50:12 CDT CPT-09539 Postop F/U Visit 14:41:10 CDT CPT-99926 Venipuncture Draw Fee 11:38:04 GRAPHIC ARTS INSTRUCTOR CPT-48022 Postop F/U Visit 19:02:59 GRAPHIC ARTS INSTRUCTOR CPT-39940 Postop F/U Visit 12:04:54 GRAPHIC ARTS INSTRUCTOR CPT-42317 Administration single or combination vac cine inc oral 15:56:43 CDT CPT-12727 Influenza split virus > age 3 15:56:43 CDT CPT-09222 Hand comp min 3V 14:25:19 CDT CPT-06860 Postop F/U Visit 21:40:51 CDT CPT-34396 Postop F/U Visit 10:58:43 CDT CPT-35062 Administration single or combination vac cine inc oral 12:33:54 GRAPHIC ARTS INSTRUCTOR CPT-83344 Influenza Preservative Free split virus >age 3 12:33:54 GRAPHIC ARTS INSTRUCTOR CPT-47183 Administration single or combination vac cine inc oral 09:30:51 CDT CPT-50946 Influenza split virus > age 3 09:30:51 CDT CPT-93553 Postop F/U Visit 15:14:53 CDT CPT-79026 Postop F/U Visit 13:50:14 CDT CPT-84524 Postop F/U Visit 13:34:52 CDT CPT-OV Office Visit 16:55:03 CDT CPT-35829 [place] of cervix w bx ECC 13:32:50 CDT 10/19 CPT-J1885 Toradol 60 mg (Ketorolac) 15:31:59 CDT 2011 CPT-J1885 Toradol 60 mg (Ketorolac) 15:23:54 CDT 2011 CPT-80557 Visit 11:34:37 GRAPHIC ARTS INSTRUCTOR CPT-26472 Visit 10:52:39 GRAPHIC ARTS INSTRUCTOR CPT-93029 Visit 10:12:02 GRAPHIC ARTS INSTRUCTOR CPT-65165 Visit 11:22:43 GRAPHIC ARTS INSTRUCTOR CPT-45234 Visit 11:24:12 GRAPHIC ARTS INSTRUCTOR CPT-65185 Visit 10:47:05 GRAPHIC ARTS INSTRUCTOR CPT-OV Office Visit 10:26:16 GRAPHIC ARTS INSTRUCTOR CPT-OV Office Visit 15:34:31 GRAPHIC ARTS INSTRUCTOR CPT-06028 Visit 10:42:08 GRAPHIC ARTS INSTRUCTOR CPT-18307 Visit 10:52:45 GRAPHIC ARTS INSTRUCTOR CPT-000 Give Appropriate Flu Vaccine 16:56:41 CDT 2 CPT-22165 Administration single or combination vac cine inc oral 10:33:21 CDT CPT-05982 Influenza split virus > age 3 10:33:21 CDT CPT-69620 Visit 13:23:09 CDT CPT-24719 Visit 18:24:52 CDT CPT-87504 Sono OB comp > 14 weeks 12:07:49 CDT 04/07
--- OUTSIDE RECORDS SUMMARY | 2020-01-18 17:14 | XMS REPORT | Clinical Summary ---
Author Author Admin, Jeri Rashid Organization [facility] Address Unknown Phone Unavailable Allergies, Adverse [...] LOCAL INFECTIONS SKIN&SUBCUT TISSUE 686.8 2 Resolved Abdirhaman Rios MD Other specified loca l infections [...] HIDRADENITIS SUPPURATIVA ICD-705.83 Inactive Good Julian MD [place]ST[place] ICD-611.71 Inactive Abdirahman Carr [...] Good Julian MD Hand pain, right ICD-729.5 Jose M Julian MD Pilonidal cyst ICD-685.1 Inactive Good Matos MD Aftercare following surgery of the skin and subcutaneous tis braden, NEC ICD-V58.77 Inactive Good Julian MD Medication List Medication Instructions Start Date Stop Date Generic Name NDC Status Provider Patient Instruction PERCOCET 5-325 MG TAB 1 every 6 hours as needed OXYCODONE-ACETAMINOPHEN 52363144790 Active Jillina Frazell MISSILE FACILITIES REPAIRER Active LORATADINE 10 MG TABS 1 tablet by mouth daily L ORATADINE 89244414266 No Longer Active Jillina Frazell MISSILE FACILITIES REPAIRER Active DIFLUCAN 150 MG TAB 1 qODay x 2 doses FLUCONAZO LE 32803216140 No Longer Active Jillina Frazell MISSILE FACILITIES REPAIRER Active CYCLOBENZAPRINE HCL 10 MG TABS 1/2 - 1 tab PO tid PRN back p ain, muscle spasm CYCLOBENZAPRINE HCL 18302545144 No Longer Active Karen siri Frazell MISSILE FACILITIES REPAIRER Active AUGMENTIN 875-125 MG TAB 1 tab by mouth twice daily with food 20 22/05/07 AMOXICILLIN-POT CLAVULANATE 20163649455 No Longer Active Loida Riso MD Active MOBIC 15 MG TABS 1 tab daily MELOXICAM 821045992 14 No Longer Active Abdirahman Rios MD Active PERCOCET 7.5-325 MG TABS 1 PO tid PRN pain OXYCODONE-ACETAMINOPHEN 00563236091 No Longer Active Abdirahman Rios MD Active LIDODERM 5 % PTCH One patch to painful area MI N. On for 12 hrs, off for 12 hrs. LIDOCAINE 30659673520 No Longer Active Abdirahman Rios MD Active PERCOCET 7.5-325 MG TABS 1 PO q 8 hrs PRN pain OXYCODONE-ACETAMINOPHEN 08599477298 No Longer Active Shola MCGILL Active HYDROCODONE-ACETAMINOPHEN 10-325 MG TABS 1 by mouth ev chaka 8 hours as needed for pain HYDROCODONE-ACETAMINOPHEN 75793089917 Active Shola MCGILL Active HYDROCODONE-ACETAMINOPHEN 7.5-325 MG TABS 1 by mouth e very 6 hours as needed for pain HYDROCODONE-ACETAMINOPHEN 44918010380 No Longer Active Good Julian MD Active LC-5 LIDOCAINE 5 % CREA apply 1 time daily to affected area LIDOCAINE (ANORECTAL) 49328284959 Active Shola MCGILL Active CLINDAMYCIN HCL 300 MG CAPS 1 po QID x 7 days CLINDAMYCIN HCL 67363905627 No Longer Active Abdirahman Rios MD Activ e BACTRIM DS 800-160 MG TABS 1 po BID x 7 days 5 SULFAMETHOXAZOLE-TRIMETHOPRIM 48140877589 No Longer Active Abdirahman Rios MD Active ENDOCET 10-325 MG TABS 1 q 6 hr prn OXYCODONE-ACETAMINOPHEN 92267810565 No Longer Active Abdirahman Rios MD Active IBUPROFEN 800 MG TABS 1 tid prn IBUPROFEN 178301 09913 No Longer Active Abdirahman Rios MD Active BACTRIM DS 800-160 MG TABS by mouth twice a day 11/05 SULFAMETHOXAZOLE-TRIMETHOPRIM 02460259977 No Longer Active Good Julian MD Active HYDROCODONE-ACETAMINOPHEN 7.5-325 MG TABS 1 four times a day as needed for pain HYDROCODONE-ACETAMINOPHEN 57746702851 No Longer Activ e Good Julian MD Active KEFLEX 500 MG CAP 1 tab po tid CEPHALEXIN 280805 97134 No Longer Active Hira Moser APRN Active IBUPROFEN 800 MG TAB 1 pill three times daily as needed for pain IBUPROFEN 16361262498 No Longer Active Kalpesh Dong MD Active PROMETHAZINE-CODEINE 6.25-10 MG/5ML SYRP 1 tsp every 6 hrs prn c ou PROMETHAZINE-CODEINE 77452722822 No Longer Active Kalpesh Carr Active ALPRAZOLAM 0.5 MG TABS 1 PO bid PRN ALPRAZOLAM 323382 44039 Active Edilberto Marino DO Active HYDROCODONE-ACETAMINOPHEN 5-325 MG TABS 1 tab by mouth every 6 hours as needed HYDROCODONE-ACETAMINOPHEN 68469339498 No Longer Activ e Shola MCIGLL Active CEPHALEXIN 500 MG CAPS 1 PO bid x 7 days CEPHAL EXIN 92587504003 No Longer Active Shola MCGILL Active BACTRIM DS 800-160 MG TAB 1 tab by mouth twice daily 2 TRIMETHOPRIM-SULFAMETHOXAZOLE 85993001633 No Longer Active Kalpesh Dong MD Active HYDROCODONE-ACETAMINOPHEN 5-325 MG TABS 1 PO tid PRN pain 5 HYDROCODONE-ACETAMINOPHEN 82816940802 No Longer Active Abhinav Galvan MD Active IMPLANON 68 MG IMPL IMPLANTED IN LEFT ARM ETONO GESTREL 79643091887 No Longer Active Hira Moser APRN Active AMOXICILLIN 500 MG TABS 2 tabs PO bid x 10 d AM OXICILLIN 92150204346 No Longer Active Kalpesh Dong MD Active LEVAQUIN 500 MG TABS 1 PO q day x 7 days LEVOFL OXACIN 48977525133 No Longer Active Shola MCGILL Active PROAIR HFA 108 (90 BASE) MCG/ACT AERS 2 puff q 4-6 hrs PRN ALBUTEROL SULFATE 24166345823 Active Edilberto Marino DO Active FIORICET 50-325-40 MG TABS 2 PO q 8 hrs PRN FOSTER [id number] Active Shola MCGILL Active AMITRIPTYLINE HCL 25 MG TAB 1 tab by mouth daily 60 minutes before bedtime AMITRIPTYLINE HCL 99739531067 No Longer Active Shola MCGILL Active LORTAB 5 5-500 MG TABS 1/2 to 1 tablet by mouth go ry 6 hours as needed for pain HYDROCODONE-ACETAMINOPHEN 44177643686 No Longer Active Shola MCGILL Active CEPHALEXIN 500 MG TABS Take one by mouth four times daily, morning, noon, early evening and bedtime. CEPHALEXIN 68635508845 No Long er Active Hira Moser APRN Active TYLENOL/CODEINE #3 300-30 MG TAB 1-2 po q6hr PRN Pain ACETAMINOPHEN-CODEINE 23809172441 No Longer Active Edilberto W Ned DO Active PRISTIQ 50 MG [id number] 1 po qd DESVENLAFAXI NE SUCCINATE 90909614282 No Longer Active Edilberto Marino DO Active PENICILLIN V POTASSIUM 500 MG TAB 1 four times a day 2 PENICILLIN V POTASSIUM 65220237194 No Longer Active Edilberto Marino DO Active DOXYCYCLINE HYCLATE 100 MG CAPS Take one (1) tablet by mouth twice a day DOXYCYCLINE HYCLATE 99398471981 No Longer Active Ronnie Galvan MD Active HYDROCODONE-ACETAMINOPHEN 5-325 MG TABS 1 po q 6hr PRN Pain 2011 HYDROCODONE-ACETAMINOPHEN 60763218926 No Longer Active Rosari joan Perez RN Active BACTRIM DS 800-160 MG TAB 1 tab by mouth twice daily 2 TRIMETHOPRIM-SULFAMETHOXAZOLE 66099007721 No Longer Active Kalpesh Dong MD Active LORTAB 5 5-500 MG TABS 1/2 to 1 tablet by mouth go ry 4 hours as needed for pain HYDROCODONE-ACETAMINOPHEN 97870063309 No Longer Active Kalpesh Dong MD Active GENERESS FE 0.8-25 MG-MCG CHEW Take one by mouth daily NORETHIN-ETH ESTRADIOL-FE 06900940547 No Longer Active Kalpesh Dong MD Active HYDROCODONE-ACETAMINOPHEN 7.5-500 MG TABS 1-2 every 4 hours as needed HYDROCODONE-ACETAMINOPHEN 85519025390 No Longer Activ e Kalpesh Dong MD Active FERROUS SULFATE 325 (65 FE) MG TABS 1 tablet by mouth twice yung y FERROUS SULFATE 81273944744 No Longer Active Kalpesh Dong MD Active IBUPROFEN 600 MG TAB 1 po q6-8hr PRN IBUPROFEN 93804894511 No Longer Active Kalpesh Dong MD Active SPIRONOLACTONE 25 MG TAB 1 tablet by mouth daily 01/22 SPIRONOLACTONE 96447335906 No Longer Active Kalpesh Dong MD Acti ve HYDROCODONE-ACETAMINOPHEN 7.5-325 MG TABS 1 po QID PRN Pain 2011 HYDROCODONE-ACETAMINOPHEN 78435789257 No Longer Active Kalpesh Dong MD Active CLINDAMYCIN HCL 300 MG CAPS 1 po q6hr x 7 days CLINDAMYCIN HCL 40604548225 No Longer Active Edilberto Marino DO Active PREDNISONE 20 MG TAB 2 tabs daily for 4 days, 1 t ab daily for 4 days, 1/2 tab daily for 4 days PREDNISONE 31037080423 No Longer Active Edilebrto Marino DO Active PERCOCET 5-325 MG TABS 1 tablet by mouth every 6 hours as ne eded for pain OXYCODONE-ACETAMINOPHEN 06967538426 No Longer Active Abdirahman Rios MD Active VITAMINS TABS Take one by mouth daily MV & MIN W/FE-FA TABS 54580963320 No Longer Active Abdirahman Rios MD Active LUIS 3-0.02 MG TABS 1 tablet by mouth daily as directed DROSPIRENONE-ETHINYL ESTRADIOL 96343219310 No Longer Active Abdirahman Rios MD Active LORATADINE 10 MG TABS 1 tablet by mouth daily L ORATADINE 28989102157 No Longer Active Kalpesh Dong MD Active HYDROCODONE-ACETAMINOPHEN 5-325 MG TABS 1 po q 6hr PRN Pain 2010 HYDROCODONE-ACETAMINOPHEN 22786289796 No Longer Active Edilberto Marino DO Active BACTRIM DS 800-160 MG TAB 1 tab by mouth twice daily 2 TRIMETHOPRIM-SULFAMETHOXAZOLE 20830886810 No Longer Active Abdirahman Rios MD Active 28-0.8 MG TABS Take one by mouth daily 09/20 VIT-FE FUMARATE-FA 39664397694 No Longer Active Abdirahman Rios MD Active CIPRO 500 MG TAB 1 tablet by mouth twice daily CIPROFLOXACIN HCL 80092220656 No Longer Active Abdirahman Rios MD Active BENADRYL 25 MG CAP 1 po q8hr PRN Congestion DIPHENHYDRAMINE HCL 13433092827 No Longer Active Abdirahman Rios MD Active ZOLOFT 50 MG TAB 1 po qd SERTRALINE HCL 609873 61941 No Longer Active Abdirahman Rios MD Active AMOXICILLIN 875 MG TABS 1 tab by mouth twice daily 201 08/09/13 AMOXICILLIN 69341299715 No Longer Active Abdirahman Rios MD Activ e AMOXICILLIN 875 MG TABS 1 tab by mouth twice daily 201 07/19/27 AMOXICILLIN 27004394067 No Longer Active Abdirahman Rios MD Activ e BACTRIM DS 800-160 MG TAB 2 tab by mouth twice daily 2 TRIMETHOPRIM-SULFAMETHOXAZOLE 92826550479 No Longer Active Abdirahman Rios MD Active KEFLEX 500 MG CAP 1 po tid x 10 days CEPHALEXIN 97941686631 No Longer Active Abdirahman Rios MD Active AMOXICILLIN 875 MG TABS 1 tab by mouth twice daily 201 07/18/07 AMOXICILLIN 47309264457 No Longer Active Abdirahman Rios MD Activ e BACTRIM DS 800-160 MG TAB 2 tab by mouth twice daily 2 BACTRIM DS 800-160 MG TAB TRIMETHOPRIM-SULFAMETHOXAZOLE Inactive ZOLOFT 50 MG TAB 1 po qd ZOLOFT 50 MG TAB 3129 41 SERTRALINE HCL Inactive BENADRYL 25 MG CAP 1 po q8hr PRN Congestion BENADRYL 25 MG CAP 1769115 DIPHENHYDRAMINE HCL Inactive 28-0.8 MG TABS Take one by mouth daily 09/20 28-0.8 MG TABS VIT-FE FUMARATE-FA Inactive HYDROCODONE-ACETAMINOPHEN 5-325 MG TABS 1 po q 6hr PRN Pain 2010 HYDROCODONE-ACETAMINOPHEN 5-325 MG TABS 060113 HYDROCODONE-ACETAMINOPHEN Inactive LORATADINE 10 MG TABS 1 tablet by mouth daily LORATADINE 10 MG TABS 670280 LORATADINE Inactive LUIS 3-0.02 MG TABS 1 tablet by mouth daily as directed LUIS 3-0.02 MG TABS DROSPIRENONE-ETHINYL ESTRADIOL Inactive VITAMINS TABS Take one by mouth daily VITAMINS TABS MV & MIN W/FE-FA TABS Inactive PERCOCET 5-325 MG TABS 1 tablet by mouth every 6 hours as ne eded for pain PERCOCET 5-325 MG TABS 0329784 OXYCODONE-ACETAMIN OPHEN Inactive PREDNISONE 20 MG TAB 2 tabs daily for 4 days, 1 t ab daily for 4 days, 1/2 tab daily for 4 days PREDNISONE 20 MG TAB 450688 PREDNISON E Inactive CLINDAMYCIN HCL 300 MG CAPS 1 po q6hr x 7 days CLINDAMYCIN HCL 300 MG CAPS 546841 CLINDAMYCIN HCL Inactive HYDROCODONE-ACETAMINOPHEN 7.5-325 MG TABS 1 po QID PRN Pain 2011 HYDROCODONE-ACETAMINOPHEN 7.5-325 MG TABS 396165 HYDROCODONE-ACETAMINOPHEN Inactive SPIRONOLACTONE 25 MG TAB 1 tablet by mouth daily 01/22 SPIRONOLACTONE 25 MG TAB 969405 SPIRONOLACTONE Inactive IBUPROFEN 600 MG TAB 1 po q6-8hr PRN IBUPROFEN 600 MG TAB 928731 IBUPROFEN Inactive FERROUS SULFATE 325 (65 FE) MG TABS 1 tablet by mouth twice yung y FERROUS SULFATE 325 (65 FE) MG TABS 589177 FERROUS SULF ATE Inactive HYDROCODONE-ACETAMINOPHEN 7.5-500 MG [...] PRN Pain 2011 HYDROCODONE-ACETAMINOPHEN 5-325 MG TABS 451227 HYDROCODONE-ACETAMINOPHEN Inactive DOXYCYCLINE HYCLATE 100 MG CAPS Take one (1) tablet by mouth twice a day DOXYCYCLINE HYCLATE 100 MG CAPS 19890814 DOXYCYCLINE HYCLATE Inactive PENICILLIN V POTASSIUM 500 MG TAB 1 four times a day 2 PENICILLIN V POTASSIUM 500 MG TAB 472848 PENICILLIN V POTASSIUM Siri ctive PRISTIQ 50 MG [id number] 1 po qd PRISTIQ 50 MG [id number] DESVENLAFAXINE SUCCINATE Inactive TYLENOL/CODEINE #3 300-30 MG TAB 1-2 po q6hr PRN Pain TYLENOL/CODEINE #3 300-30 MG TAB 112770 ACETAMINOPHEN-CODEINE Inact krishna CEPHALEXIN 500 MG TABS Take one by mouth four times daily, morning, noon, early evening and bedtime. CEPHALEXIN 500 MG TABS 405105 CEPHALEXIN Inactive LORTAB 5 5-500 MG TABS 1/2 to 1 tablet by mouth go ry 6 hours as needed for pain LORTAB 5 5-500 MG TABS HYDROCODONE-A CETAMINOPHEN Inactive AMITRIPTYLINE HCL 25 MG TAB 1 tab by mouth daily 60 minutes before bedtime AMITRIPTYLINE HCL 25 MG TAB 136100 AMITRIPTYLINE HCL Inactive AMOXICILLIN 500 MG TABS 2 tabs PO bid x 10 d AMOXICILLIN 500 MG TABS 519637 AMOXICILLIN Inactive IMPLANON 68 MG IMPL IMPLANTED IN LEFT ARM IMPLANON 68 MG IMPL ETONOGESTREL Inactive HYDROCODONE-ACETAMINOPHEN 5-325 MG TABS 1 PO tid PRN pain 5 HYDROCODONE-ACETAMINOPHEN 5-325 MG TABS 132326 HYDROCODONE-ACETAMIN OPHEN Inactive BACTRIM DS 800-160 MG TAB 1 tab by mouth twice daily 2 BACTRIM DS 800-160 MG TAB TRIMETHOPRIM-SULFAMETHOXAZOLE Inac tive CEPHALEXIN 500 MG CAPS 1 PO bid x 7 days CEPHALEXIN 500 MG CAPS 302036 CEPHALEXIN Inactive HYDROCODONE-ACETAMINOPHEN 5-325 MG TABS 1 tab by mouth every 6 hours as needed HYDROCODONE-ACETAMINOPHEN 5-325 MG TABS 213270 HYDROCODONE-ACETAMINOPHEN Inactive PROMETHAZINE-CODEINE 6.25-10 MG/5ML SYRP 1 tsp every 6 hrs prn c ough PROMETHAZINE-CODEINE 6.25-10 MG/5ML SYRP 719479 PROMETH AZINE-CODEINE Inactive IBUPROFEN 800 MG TAB 1 pill three times daily as needed for pain IBUPROFEN 800 MG TAB IBUPROFEN Inactive KEFLEX 500 MG CAP 1 tab po tid KEFLEX 500 MG CAP 922227 CEPHALEXIN Inactive HYDROCODONE-ACETAMINOPHEN 7.5-325 MG TABS 1 four times a day as needed for pain HYDROCODONE-ACETAMINOPHEN 7.5-325 MG TABS 331030 HYDROCODONE-ACETAMINOPHEN Inactive BACTRIM DS 800-160 MG TABS by mouth twice a day 11/05 BACTRIM DS 800-160 MG TABS SULFAMETHOXAZOLE-TRIMETHOPRIM Inactive IBUPROFEN 800 MG TABS 1 tid prn IBUPROFEN 800 MG TABS 334672 IBUPROFEN Inactive ENDOCET 10-325 MG TABS 1 q 6 hr prn ENDOC ET 10-325 MG TABS 4209021 OXYCODONE-ACETAMINOPHEN Inactive HYDROCODONE-ACETAMINOPHEN 7.5-325 MG TABS 1 by mouth e very 6 hours as needed for pain HYDROCODONE-ACETAMINOPHEN 7.5-325 MG TABS 489458 HYDROCODONE-ACETAMINOPHEN Inactive PERCOCET 7.5-325 MG TABS 1 PO q 8 hrs PRN pain PERCOCET 7.5-325 MG TABS 1056819 OXYCODONE-ACETAMINOPHEN Inactive LIDODERM 5 % PTCH One patch to painful area MI N. On for 12 hrs, off for 12 hrs. LIDODERM 5 % PTCH 7113043 LIDOCAINE Inactiv e PERCOCET 7.5-325 MG TABS 1 PO tid PRN pain PERCOCET 7.5- 325 MG TABS 3072993 OXYCODONE-ACETAMINOPHEN Inactive MOBIC 15 MG TABS 1 tab daily MOBIC 15 MG TABS 15 2695 MELOXICAM Inactive CYCLOBENZAPRINE HCL 10 MG TABS 1/2 - 1 tab PO tid PRN back p ain, muscle spasm CYCLOBENZAPRINE HCL 10 MG TABS 883235 CYCLOBENZA JOSEPH HCL Inactive LORATADINE 10 MG TABS 1 tablet by mouth daily LORATADINE 10 MG TABS 582915 LORATADINE Inactive AMOXICILLIN 875 MG TABS 1 tab by mouth twice daily 201 07/18/07 AMOXICILLIN 875 MG TABS 049772 AMOXICILLIN Inactive KEFLEX 500 MG CAP 1 po tid x 10 days KEFLEX 500 MG CAP 916099 CEPHALEXIN Inactive AMOXICILLIN 875 MG TABS 1 tab by mouth twice daily 201 07/19/27 AMOXICILLIN 875 MG TABS 968750 AMOXICILLIN Inactive AMOXICILLIN 875 MG TABS 1 tab by mouth twice daily 201 08/09/13 AMOXICILLIN 875 MG TABS 008626 AMOXICILLIN Inactive CIPRO 500 MG TAB 1 tablet by mouth twice daily CIPRO 500 MG TAB 482870 CIPROFLOXACIN HCL Inactive BACTRIM DS 800-160 MG TAB 1 tab by mouth twice daily 2 BACTRIM DS 800-160 MG TAB TRIMETHOPRIM-SULFAMETHOXAZOLE Inac tive LEVAQUIN 500 MG TABS 1 PO q day x 7 days LEVAQUIN 500 MG TABS 111238 LEVOFLOXACIN Inactive CLINDAMYCIN HCL 300 MG CAPS 1 po QID x 7 days CLINDAMYCIN HCL 300 MG CAPS 106327 CLINDAMYCIN HCL Inactive AUGMENTIN 875-125 MG TAB 1 tab by mouth twice daily with food 20 22/05/07 AUGMENTIN 875-125 MG TAB 530272 AMOXICILLIN-POT [place]A [place] Inactive DIFLUCAN 150 MG TAB 1 qODay x 2 doses DIFLUCAN 150 MG TAB 705441 FLUCONAZOLE Inactive Advance Directives Directive Description Start Date PERMISSION TO SHARE Immunizations Vaccine Administration Date Value Standard Alf cription Seasonal influenza vaccine, injectable, containing preservative, for > 3 years old (Afluria, FluLaval, Fluzone, Fluvirin, Fluarix, Agriflu(>= 18 yo)) Fluzone (>3 yrs.) [[id number]] Influenza, seasonal, inject able Seasonal influenza vaccine, injectable, preservative free, for > 3 years old (Afluria, FluLaval, Fluzone, Fluvirin, Fluarix, Agriflu(>= 18 yo)) Fluzone preservative free (>3 yrs.) [[id number]] Influenza, seasonal, injectable, preservative free Seasonal influenza vaccine, injectable, containing preservative, for > 3 years old (Afluria, FluLaval, Fluzone, Fluvirin, Fluarix, Agriflu(>= 18 yo)) Fluzone (>3 yrs.) [[id number]] Influenza, seasonal, inject able Seasonal influenza vaccine, injectable, containing preservative, for > 3 years old (Afluria, FluLaval, Fluzone, Fluvirin, Fluarix, Agriflu(>= 18 yo)) Fluzone (>3 yrs.) [[id number]] Influenza, seasonal, inject able dT (Diphtheria and [...] pressure, diastolic - 8462-4 81 mm[Hg] BP irbeiro blood pressure, systolic - [...] ... - Chemistry sodium, serum 140 mmol/L 199-304 3160/02/24 potassium, serum 4.3 mmol/L 3.5-5.2 chloride, serum [...] 4.3-6.0 Lab Report: T3, TOTAL, INSULIN - [facility] triiodothyronine (T3), serum 78 ng/dL 76-181 Office Visit: low blood sugars - Chemis try cholesterol, target level 200 mg/dL triglyceride, target level 200 mg/dL HDL cholesterol, serum, target level 35 mg/dL LDL target level 100 mg/dL Encounters Code Encounter Date Provider Facility CPT-76370 Level 3 Est. Patient 14:03:08 DYE BOARDING MACHINE OPERATOR Abdirahman Rios MD [facility] CPT-97400 Level 3 Est. Patient 18:12:34 CDT Shola Wright [facility] CPT-21227 Level 3 Est. Patient 19:34:46 CDT Shola Wright [facility] CPT-89986 Level 3 Est. Patient 14:19:37 CDT Abdirahman Rios MD [facility] CPT-12494 Level 3 Est. Patient 14:11:58 CDT Kalpesh goins MD [facility] CPT-49448 Level 3 Est. Patient 16:50:00 CDT Michelle BRADFORDP [facility] CPT-30534 Level 3 Est. Patient 17:11:32 DYE BOARDING MACHINE OPERATOR Brandie bates MD PhD [facility] CPT-63185 Level 3 Est. Patient 16:31:47 DYE BOARDING MACHINE OPERATOR Shola Wright [facility] CPT-24381 Level 3 Est. Patient 17:51:10 DYE BOARDING MACHINE OPERATOR Abhinav Galvan MD [facility] CPT-16765 Level 4 Est. Patient 12:54:56 DYE BOARDING MACHINE OPERATOR Kalpesh goins MD [facility]-12565 Level 4 Est. Patient 12:53:56 DYE BOARDING MACHINE OPERATOR Kalpesh goins MD [facility] CPT-23439 Level 3 Est. Patient 17:56:58 CDT Shola Wright [facility] CPT-17714 Level 3 Est. Patient 14:26:20 CDT Janak butcher [facility] CPT-59569 Level 3 Est. Patient 09:38:41 CDT Shola Wright [facility] CPT-61070 Level 3 Est. Patient 14:45:26 CDT Edilberto tiwari [facility] CPT-96517 Level 3 Est. Patient 10:51:33 [facility] Est. Patient 11:57:55 DYE BOARDING MACHINE OPERATOR Shola Wright [facility] CPT-02058 Level 3 Est. Patient 09:53:33 DYE BOARDING MACHINE OPERATOR Edilberto tiwari [facility] CPT-96197 Level 3 Est. Patient 14:42:54 DYE BOARDING MACHINE OPERATOR Abhinav Galvan MD [facility]-37003 Level 3 Est. Patient 15:10:02 CDT Janak MCGILL [facility] CPT-17838 Level 3 Est. Patient 15:20:20 CDT Theo dennis MD [facility] CPT-10797 Level 2 Est. Patient 14:08:57 CDT Kalpesh goins MD [facility] CPT-83638 Level 3 Est. Patient 13:56:19 CDT Abdirahman Rios MD [facility] CPT-97782 Level 3 Est. Patient 13:59:37 CDT Abdirahman Rios MD [facility] CPT-80063 Level 2 Est. Patient 14:44:59 CDT Kalpesh goins MD [facility] CPT-85637 Level 3 Est. Patient 06:06:23 CDT Edilberto tiwari DO [facility] CPT-06188 Level 3 Est. Patient 15:23:54 CDT Abdirahman Rios MD [facility] CPT-97710 Level 3 Est. Patient 15:43:49 CDT Abdirahman Rios MD [facility] CPT-69446 Level 3 Est. Patient 12:46:47 DYE BOARDING MACHINE OPERATOR Abdirahman Rios MD [facility] CPT-32614 Level 3 Est. Patient 08:13:35 DYE BOARDING MACHINE OPERATOR Abdirahman Rios MD [facility] CPT-45726 Level 2 Est. Patient 09:36:42 DYE BOARDING MACHINE OPERATOR Abdirahman Rios MD [facility] CPT-62891 Level 3 Est. Patient 10:56:43 CDT Abdirahman Rios MD [facility] CPT-52399 Level 3 Est. Patient 18:24:52 CDT Abdirahman Rios MD [facility] CPT-59351 Level 3 Est. Patient 13:27:22 CDT Abdirahman Rios MD [facility] Procedures Code Procedure Name Date Entry Date Standard Desc ription CPT-35933 Immunization Single Admin 16:41:53 CDT 2013 CPT-17054 Fluzone Quadrivalent Intramuscular Suspe nsion 0.5 ML 16:41:53 CDT CPT-OV Office Visit 16:39:18 CDT CPT-OV Office Visit 16:16:36 CDT CPT-OV Office Visit 15:34:48 CDT CPT-90850 Postop F/U Visit 14:50:12 CDT CPT-30741 Postop F/U Visit 14:41:10 CDT CPT-31532 Venipuncture Draw Fee 11:38:04 DYE BOARDING MACHINE OPERATOR CPT-81416 Postop F/U Visit 19:02:59 DYE BOARDING MACHINE OPERATOR CPT-86766 Postop F/U Visit 12:04:54 DYE BOARDING MACHINE OPERATOR CPT-77202 Administration single or combination vac cine inc oral 15:56:43 CDT CPT-66590 Influenza split virus > age 3 15:56:43 CDT CPT-26037 Hand comp min 3V 14:25:19 CDT CPT-05326 Postop F/U Visit 21:40:51 CDT CPT-91903 Postop F/U Visit 10:58:43 CDT CPT-38340 Administration single or combination vac cine inc oral 12:33:54 DYE BOARDING MACHINE OPERATOR CPT-36882 Influenza Preservative Free split virus >age 3 12:33:54 DYE BOARDING MACHINE OPERATOR CPT-76429 Administration single or combination vac cine inc oral 09:30:51 CDT CPT-99945 Influenza split virus > age 3 09:30:51 CDT CPT-01013 Postop F/U Visit 15:14:53 CDT CPT-82975 Postop F/U Visit 13:50:14 CDT CPT-99817 Postop F/U Visit 13:34:52 CDT CPT-OV Office Visit 16:55:03 CDT CPT-63956 [place] of cervix w bx ECC 13:32:50 CDT 10/19 CPT-J1885 Toradol 60 mg (Ketorolac) 15:31:59 CDT 2011 CPT-J1885 Toradol 60 mg (Ketorolac) 15:23:54 CDT 2011 CPT-55582 Visit 11:34:37 DYE BOARDING MACHINE OPERATOR CPT-71236 Visit 10:52:39 DYE BOARDING MACHINE OPERATOR CPT-55758 Visit 10:12:02 DYE BOARDING MACHINE OPERATOR CPT-89381 Visit 11:22:43 DYE BOARDING MACHINE OPERATOR CPT-70137 Visit 11:24:12 DYE BOARDING MACHINE OPERATOR CPT-26324 Visit 10:47:05 DYE BOARDING MACHINE OPERATOR CPT-OV Office Visit 10:26:16 DYE BOARDING MACHINE OPERATOR CPT-OV Office Visit 15:34:31 DYE BOARDING MACHINE OPERATOR CPT-26872 Visit 10:42:08 DYE BOARDING MACHINE OPERATOR CPT-70129 Visit 10:52:45 DYE BOARDING MACHINE OPERATOR CPT-000 Give Appropriate Flu Vaccine 16:56:41 CDT 2 CPT-21403 Administration single or combination vac cine inc oral 10:33:21 CDT CPT-46971 Influenza split virus > age 3 10:33:21 CDT CPT-65190 Visit 13:23:09 CDT CPT-61379 Visit 18:24:52 CDT CPT-79169 Sono OB comp > 14 weeks 12:07:49 CDT 04/07
--- OUTSIDE RECORDS SUMMARY | 2020-01-18 17:15 | XMS REPORT | Clinical Summary ---
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 Stormy Julian MD ENCOUNTER FOR THERAPEUTIC DRUG MONITORING ICD-V58.83 Inactive Good Julian MD AMENORRHEA ICD-626.0 Inactive Good sierra MD AFTERCARE FLW SURG TEETH ORL CAV&DIGESTV SYS NEC ICD-V58.75 Inactive Good Julian MD ACUTE BRONCHITIS ICD-466.0 Inactive Good Julain MD JAW PAIN ICD-526.9 Inactive Good collier [...] 1 every 6 hours as needed OXYCODONE-ACETAMINOPHEN 29650020931 Active Jillina Frazell REGISTERED PUBLIC HEALTH NURSE Active LORATADINE 10 MG TABS 1 tablet by mouth daily L ORATADINE 69565803500 No Longer Active Jillina Frazell REGISTERED PUBLIC HEALTH NURSE Active DIFLUCAN 150 MG TAB 1 qODay x 2 doses FLUCONAZO LE 70690816743 No Longer Active Jillina Frazell REGISTERED PUBLIC HEALTH NURSE Active CYCLOBENZAPRINE HCL 10 MG TABS 1/2 - 1 tab PO tid PRN back p ain, muscle spasm CYCLOBENZAPRINE HCL 33243274845 No Longer Active Karen siri Frazell REGISTERED PUBLIC HEALTH NURSE Active AUGMENTIN 875-125 MG TAB 1 tab by mouth twice daily with food 20 22/05/07 AMOXICILLIN-POT CLAVULANATE 02750548601 No Longer Active Loida Rios MD Active MOBIC 15 MG TABS 1 tab daily MELOXICAM 575817770 14 No Longer Active Abdirahman Rios MD Active PERCOCET 7.5-325 MG TABS 1 PO tid PRN pain OXYCODONE-ACETAMINOPHEN 38660073501 No Longer Active Abdirahman Rios MD Active LIDODERM 5 % PTCH One patch to painful area MO N. On for 12 hrs, off for 12 hrs. LIDOCAINE 16114055000 No Longer Active Abdirahman Rios MD Active PERCOCET 7.5-325 MG TABS 1 PO q 8 hrs PRN pain OXYCODONE-ACETAMINOPHEN 96772822075 No Longer Active Shola MCGILL Active HYDROCODONE-ACETAMINOPHEN 10-325 MG TABS 1 by mouth ev chaka 8 hours as needed for pain HYDROCODONE-ACETAMINOPHEN 60333035167 Active Shola MCGILL Active HYDROCODONE-ACETAMINOPHEN 7.5-325 MG TABS 1 by mouth e very 6 hours as needed for pain HYDROCODONE-ACETAMINOPHEN 55479089994 No Longer Active Good Julian MD Active LC-5 LIDOCAINE 5 % CREA apply 1 time daily to affected area LIDOCAINE (ANORECTAL) 85451954397 Active Shola MCGILL Active CLINDAMYCIN HCL 300 MG CAPS 1 po QID x 7 days CLINDAMYCIN HCL 78775146863 No Longer Active Abdirahman Rios MD Activ e BACTRIM DS 800-160 MG TABS 1 po BID x 7 days 5 SULFAMETHOXAZOLE-TRIMETHOPRIM 16821559802 No Longer Active Abdirahman Rios MD Active ENDOCET 10-325 MG TABS 1 q 6 hr prn OXYCODONE-ACETAMINOPHEN 09487531884 No Longer Active Abdirahman Rios MD Active IBUPROFEN 800 MG TABS 1 tid prn IBUPROFEN 211774 90657 No Longer Active Abdirahman Rios MD Active BACTRIM DS 800-160 MG TABS by mouth twice a day 11/05 SULFAMETHOXAZOLE-TRIMETHOPRIM 21079445707 No Longer Active Good Julian MD Active HYDROCODONE-ACETAMINOPHEN 7.5-325 MG TABS 1 four times a day as needed for pain HYDROCODONE-ACETAMINOPHEN 85098157481 No Longer Activ e Good Julian MD Active KEFLEX 500 MG CAP 1 tab po tid CEPHALEXIN 501207 36847 No Longer Active Hira Moser APRN Active IBUPROFEN 800 MG TAB 1 pill three times daily as needed for pain IBUPROFEN 41108761562 No Longer Active Kalpesh Dong MD Active PROMETHAZINE-CODEINE 6.25-10 MG/5ML SYRP 1 tsp every 6 hrs prn c ou PROMETHAZINE-CODEINE 73467039874 No Longer Active Kalpesh Carr Active ALPRAZOLAM 0.5 MG TABS 1 PO bid PRN ALPRAZOLAM 021774 38494 Active Edilberto Marino DO Active HYDROCODONE-ACETAMINOPHEN 5-325 MG TABS 1 tab by mouth every 6 hours as needed HYDROCODONE-ACETAMINOPHEN 93796747605 No Longer Activ e Shola MCGILL Active CEPHALEXIN 500 MG CAPS 1 PO bid x 7 days CEPHAL EXIN 95686103527 No Longer Active Shola MCGILL Active BACTRIM DS 800-160 MG TAB 1 tab by mouth twice daily 2 TRIMETHOPRIM-SULFAMETHOXAZOLE 99032237285 No Longer Active Kalpesh Dong MD Active HYDROCODONE-ACETAMINOPHEN 5-325 MG TABS 1 PO tid PRN pain 5 HYDROCODONE-ACETAMINOPHEN 18134804426 No Longer Active Abhinav Galvan MD Active IMPLANON 68 MG IMPL IMPLANTED IN LEFT ARM ETONO GESTREL 42774428707 No Longer Active Hira Moser APRN Active AMOXICILLIN 500 MG TABS 2 tabs PO bid x 10 d AM OXICILLIN 45609374357 No Longer Active Kalpesh Dong MD Active LEVAQUIN 500 MG TABS 1 PO q day x 7 days LEVOFL OXACIN 36790887402 No Longer Active Shola MCGILL Active PROAIR HFA 108 (90 BASE) MCG/ACT AERS 2 puff q 4-6 hrs PRN ALBUTEROL SULFATE 16262688553 Active Edilberto Marino DO Active FIORICET 50-325-40 MG TABS 2 PO q 8 hrs PRN FOSTER [id number] Active Shola MCGILL Active AMITRIPTYLINE HCL 25 MG TAB 1 tab by mouth daily 60 minutes before bedtime AMITRIPTYLINE HCL 50195469133 No Longer Active Shola MCGILL Active LORTAB 5 5-500 MG TABS 1/2 to 1 tablet by mouth go ry 6 hours as needed for pain HYDROCODONE-ACETAMINOPHEN 48168679244 No Longer Active Shola MCGILL Active CEPHALEXIN 500 MG TABS Take one by mouth four times daily, morning, noon, early evening and bedtime. CEPHALEXIN 12094426480 No Long er Active Hira Moser APRN Active TYLENOL/CODEINE #3 300-30 MG TAB 1-2 po q6hr PRN Pain ACETAMINOPHEN-CODEINE 91868501018 No Longer Active Edilberto W Ned DO Active PRISTIQ 50 MG [id number] 1 po qd DESVENLAFAXI NE SUCCINATE 79849086340 No Longer Active Edilberto Marino DO Active PENICILLIN V POTASSIUM 500 MG TAB 1 four times a day 2 PENICILLIN V POTASSIUM 45520693712 No Longer Active Edilberto Marino DO Active DOXYCYCLINE HYCLATE 100 MG CAPS Take one (1) tablet by mouth twice a day DOXYCYCLINE HYCLATE 29185184935 No Longer Active Ronnie Galvan MD Active HYDROCODONE-ACETAMINOPHEN 5-325 MG TABS 1 po q 6hr PRN Pain 2011 HYDROCODONE-ACETAMINOPHEN 92000456421 No Longer Active Rosari joan Perez RN Active BACTRIM DS 800-160 MG TAB 1 tab by mouth twice daily 2 TRIMETHOPRIM-SULFAMETHOXAZOLE 71018310683 No Longer Active Kalpesh Dong MD Active LORTAB 5 5-500 MG TABS 1/2 to 1 tablet by mouth go ry 4 hours as needed for pain HYDROCODONE-ACETAMINOPHEN 65408242048 No Longer Active Kalpesh Dong MD Active GENERESS FE 0.8-25 MG-MCG CHEW Take one by mouth daily NORETHIN-ETH ESTRADIOL-FE 57596184535 No Longer Active Kalpesh Dong MD Active HYDROCODONE-ACETAMINOPHEN 7.5-500 MG TABS 1-2 every 4 hours as needed HYDROCODONE-ACETAMINOPHEN 20932082813 No Longer Activ e Kalpesh Dong MD Active FERROUS SULFATE 325 (65 FE) MG TABS 1 tablet by mouth twice yung y FERROUS SULFATE 39006165690 No Longer Active Kalpesh Dong MD Active IBUPROFEN 600 MG TAB 1 po q6-8hr PRN IBUPROFEN 36767712530 No Longer Active Kalpesh Dong MD Active SPIRONOLACTONE 25 MG TAB 1 tablet by mouth daily 01/22 SPIRONOLACTONE 51137425804 No Longer Active Kalpesh Dong MD Acti ve HYDROCODONE-ACETAMINOPHEN 7.5-325 MG TABS 1 po QID PRN Pain 2011 HYDROCODONE-ACETAMINOPHEN 72513736735 No Longer Active Kalpesh Dong MD Active CLINDAMYCIN HCL 300 MG CAPS 1 po q6hr x 7 days CLINDAMYCIN HCL 24333631016 No Longer Active Edilberto Marino DO Active PREDNISONE 20 MG TAB 2 tabs daily for 4 days, 1 t ab daily for 4 days, 1/2 tab daily for 4 days PREDNISONE 15945706067 No Longer Active Edilberto Marino DO Active PERCOCET 5-325 MG TABS 1 tablet by mouth every 6 hours as ne eded for pain OXYCODONE-ACETAMINOPHEN 09483525849 No Longer Active Abdirahman Rios MD Active VITAMINS TABS Take one by mouth daily MV & MIN W/FE-FA TABS 94329215400 No Longer Active Abdirahman Rios MD Active LUIS 3-0.02 MG TABS 1 tablet by mouth daily as directed DROSPIRENONE-ETHINYL ESTRADIOL 23007412395 No Longer Active Abdirahman Rios MD Active LORATADINE 10 MG TABS 1 tablet by mouth daily L ORATADINE 79165524031 No Longer Active Kalpesh Dong MD Active HYDROCODONE-ACETAMINOPHEN 5-325 MG TABS 1 po q 6hr PRN Pain 2010 HYDROCODONE-ACETAMINOPHEN 85755747508 No Longer Active Edilberto Marino DO Active BACTRIM DS 800-160 MG TAB 1 tab by mouth twice daily 2 TRIMETHOPRIM-SULFAMETHOXAZOLE 28484847301 No Longer Active Abdirahman Rios MD Active 28-0.8 MG TABS Take one by mouth daily 09/20 VIT-FE FUMARATE-FA 13006980723 No Longer Active Abdirahman Rios MD Active CIPRO 500 MG TAB 1 tablet by mouth twice daily CIPROFLOXACIN HCL 52571792629 No Longer Active Abdirahman Rios MD Active BENADRYL 25 MG CAP 1 po q8hr PRN Congestion DIPHENHYDRAMINE HCL 28426082991 No Longer Active Abdirahman Rios MD Active ZOLOFT 50 MG TAB 1 po qd SERTRALINE HCL 174717 71274 No Longer Active Abdirahman Rios MD Active AMOXICILLIN 875 MG TABS 1 tab by mouth twice daily 201 08/09/13 AMOXICILLIN 24408346282 No Longer Active Abdirahman Rios MD Activ e AMOXICILLIN 875 MG TABS 1 tab by mouth twice daily 201 07/19/27 AMOXICILLIN 71528694020 No Longer Active Abdirahman Rios MD Activ e BACTRIM DS 800-160 MG TAB 2 tab by mouth twice daily 2 TRIMETHOPRIM-SULFAMETHOXAZOLE 71750148108 No Longer Active Abdirahman Rios MD Active KEFLEX 500 MG CAP 1 po tid x 10 days CEPHALEXIN 57924044398 No Longer Active Abdirahman Rios MD Active AMOXICILLIN 875 MG TABS 1 tab by mouth twice daily 201 07/18/07 AMOXICILLIN 23246456570 No Longer Active Abdirahman Rios MD Activ e BACTRIM DS 800-160 MG TAB 2 tab by mouth twice daily 2 BACTRIM DS 800-160 MG TAB TRIMETHOPRIM-SULFAMETHOXAZOLE Inactive ZOLOFT 50 MG TAB 1 po qd ZOLOFT 50 MG TAB 3129 41 SERTRALINE HCL Inactive BENADRYL 25 MG CAP 1 po q8hr PRN Congestion BENADRYL 25 MG CAP 0794532 DIPHENHYDRAMINE HCL Inactive 28-0.8 MG TABS Take one by mouth daily 09/20 28-0.8 MG TABS VIT-FE FUMARATE-FA Inactive HYDROCODONE-ACETAMINOPHEN 5-325 MG TABS 1 po q 6hr PRN Pain 2010 HYDROCODONE-ACETAMINOPHEN 5-325 MG TABS 880513 HYDROCODONE-ACETAMINOPHEN Inactive LORATADINE 10 MG TABS 1 tablet by mouth daily LORATADINE 10 MG TABS 622035 LORATADINE Inactive LUIS 3-0.02 MG TABS 1 tablet by mouth daily as directed LUIS 3-0.02 MG TABS DROSPIRENONE-ETHINYL ESTRADIOL Inactive VITAMINS TABS Take one by mouth daily VITAMINS TABS MV & MIN W/FE-FA TABS Inactive PERCOCET 5-325 MG TABS 1 tablet by mouth every 6 hours as ne eded for pain PERCOCET 5-325 MG TABS 6339033 OXYCODONE-ACETAMIN OPHEN Inactive PREDNISONE 20 MG TAB 2 tabs daily for 4 days, 1 t ab daily for 4 days, 1/2 tab daily for 4 days PREDNISONE 20 MG TAB 191452 PREDNISON E Inactive CLINDAMYCIN HCL 300 MG CAPS 1 po q6hr x 7 days CLINDAMYCIN HCL 300 MG CAPS 539426 CLINDAMYCIN HCL Inactive HYDROCODONE-ACETAMINOPHEN 7.5-325 MG TABS 1 po QID PRN Pain 2011 HYDROCODONE-ACETAMINOPHEN 7.5-325 MG TABS 073783 HYDROCODONE-ACETAMINOPHEN Inactive SPIRONOLACTONE 25 MG TAB 1 tablet by mouth daily 01/22 SPIRONOLACTONE 25 MG TAB 307115 SPIRONOLACTONE Inactive IBUPROFEN 600 MG TAB 1 po q6-8hr PRN IBUPROFEN 600 MG TAB 322220 IBUPROFEN Inactive FERROUS SULFATE 325 (65 FE) MG TABS 1 tablet by mouth twice yung y FERROUS SULFATE 325 (65 FE) MG TABS 079207 FERROUS SULF ATE Inactive HYDROCODONE-ACETAMINOPHEN 7.5-500 MG [...] PRN Pain 2011 HYDROCODONE-ACETAMINOPHEN 5-325 MG TABS 810229 HYDROCODONE-ACETAMINOPHEN Inactive DOXYCYCLINE HYCLATE 100 MG CAPS Take one (1) tablet by mouth twice a day DOXYCYCLINE HYCLATE 100 MG CAPS 19890814 DOXYCYCLINE HYCLATE Inactive PENICILLIN V POTASSIUM 500 MG TAB 1 four times a day 2 PENICILLIN V POTASSIUM 500 MG TAB 295135 PENICILLIN V POTASSIUM Siri ctive PRISTIQ 50 MG [id number] 1 po qd PRISTIQ 50 MG [id number] DESVENLAFAXINE SUCCINATE Inactive TYLENOL/CODEINE #3 300-30 MG TAB 1-2 po q6hr PRN Pain TYLENOL/CODEINE #3 300-30 MG TAB 029222 ACETAMINOPHEN-CODEINE Inact krishna CEPHALEXIN 500 MG TABS Take one by mouth four times daily, morning, noon, early evening and bedtime. CEPHALEXIN 500 MG TABS 935110 CEPHALEXIN Inactive LORTAB 5 5-500 MG TABS 1/2 to 1 tablet by mouth go ry 6 hours as needed for pain LORTAB 5 5-500 MG TABS HYDROCODONE-A CETAMINOPHEN Inactive AMITRIPTYLINE HCL 25 MG TAB 1 tab by mouth daily 60 minutes before bedtime AMITRIPTYLINE HCL 25 MG TAB 098332 AMITRIPTYLINE HCL Inactive AMOXICILLIN 500 MG TABS 2 tabs PO bid x 10 d AMOXICILLIN 500 MG TABS 272470 AMOXICILLIN Inactive IMPLANON 68 MG IMPL IMPLANTED IN LEFT ARM IMPLANON 68 MG IMPL ETONOGESTREL Inactive HYDROCODONE-ACETAMINOPHEN 5-325 MG TABS 1 PO tid PRN pain 5 HYDROCODONE-ACETAMINOPHEN 5-325 MG TABS 815982 HYDROCODONE-ACETAMIN OPHEN Inactive BACTRIM DS 800-160 MG TAB 1 tab by mouth twice daily 2 BACTRIM DS 800-160 MG TAB TRIMETHOPRIM-SULFAMETHOXAZOLE Inac tive CEPHALEXIN 500 MG CAPS 1 PO bid x 7 days CEPHALEXIN 500 MG CAPS 935427 CEPHALEXIN Inactive HYDROCODONE-ACETAMINOPHEN 5-325 MG TABS 1 tab by mouth every 6 hours as needed HYDROCODONE-ACETAMINOPHEN 5-325 MG TABS 512161 HYDROCODONE-ACETAMINOPHEN Inactive PROMETHAZINE-CODEINE 6.25-10 MG/5ML SYRP 1 tsp every 6 hrs prn c ough PROMETHAZINE-CODEINE 6.25-10 MG/5ML SYRP 057372 PROMETH AZINE-CODEINE Inactive IBUPROFEN 800 MG TAB 1 pill three times daily as needed for pain IBUPROFEN 800 MG TAB IBUPROFEN Inactive KEFLEX 500 MG CAP 1 tab po tid KEFLEX 500 MG CAP 304933 CEPHALEXIN Inactive HYDROCODONE-ACETAMINOPHEN 7.5-325 MG TABS 1 four times a day as needed for pain HYDROCODONE-ACETAMINOPHEN 7.5-325 MG TABS 981139 HYDROCODONE-ACETAMINOPHEN Inactive BACTRIM DS 800-160 MG TABS by mouth twice a day 11/05 BACTRIM DS 800-160 MG TABS SULFAMETHOXAZOLE-TRIMETHOPRIM Inactive IBUPROFEN 800 MG TABS 1 tid prn IBUPROFEN 800 MG TABS 417033 IBUPROFEN Inactive ENDOCET 10-325 MG TABS 1 q 6 hr prn ENDOC ET 10-325 MG TABS 9862420 OXYCODONE-ACETAMINOPHEN Inactive HYDROCODONE-ACETAMINOPHEN 7.5-325 MG TABS 1 by mouth e very 6 hours as needed for pain HYDROCODONE-ACETAMINOPHEN 7.5-325 MG TABS 944967 HYDROCODONE-ACETAMINOPHEN Inactive PERCOCET 7.5-325 MG TABS 1 PO q 8 hrs PRN pain PERCOCET 7.5-325 MG TABS 9905140 OXYCODONE-ACETAMINOPHEN Inactive LIDODERM 5 % PTCH One patch to painful area MO N. On for 12 hrs, off for 12 hrs. LIDODERM 5 % PTCH 7026792 LIDOCAINE Inactiv e PERCOCET 7.5-325 MG TABS 1 PO tid PRN pain PERCOCET 7.5- 325 MG TABS 4823998 OXYCODONE-ACETAMINOPHEN Inactive MOBIC 15 MG TABS 1 tab daily MOBIC 15 MG TABS 15 2695 MELOXICAM Inactive CYCLOBENZAPRINE HCL 10 MG TABS 1/2 - 1 tab PO tid PRN back p ain, muscle spasm CYCLOBENZAPRINE HCL 10 MG TABS 345418 CYCLOBENZA JOSEPH HCL Inactive LORATADINE 10 MG TABS 1 tablet by mouth daily LORATADINE 10 MG TABS 775123 LORATADINE Inactive AMOXICILLIN 875 MG TABS 1 tab by mouth twice daily 201 07/18/07 AMOXICILLIN 875 MG TABS 246060 AMOXICILLIN Inactive KEFLEX 500 MG CAP 1 po tid x 10 days KEFLEX 500 MG CAP 551752 CEPHALEXIN Inactive AMOXICILLIN 875 MG TABS 1 tab by mouth twice daily 201 07/19/27 AMOXICILLIN 875 MG TABS 443292 AMOXICILLIN Inactive AMOXICILLIN 875 MG TABS 1 tab by mouth twice daily 201 08/09/13 AMOXICILLIN 875 MG TABS 497638 AMOXICILLIN Inactive CIPRO 500 MG TAB 1 tablet by mouth twice daily CIPRO 500 MG TAB 091117 CIPROFLOXACIN HCL Inactive BACTRIM DS 800-160 MG TAB 1 tab by mouth twice daily 2 BACTRIM DS 800-160 MG TAB TRIMETHOPRIM-SULFAMETHOXAZOLE Inac tive LEVAQUIN 500 MG TABS 1 PO q day x 7 days LEVAQUIN 500 MG TABS 529387 LEVOFLOXACIN Inactive CLINDAMYCIN HCL 300 MG CAPS 1 po QID x 7 days CLINDAMYCIN HCL 300 MG CAPS 055968 CLINDAMYCIN HCL Inactive AUGMENTIN 875-125 MG TAB 1 tab by mouth twice daily with food 20 22/05/07 AUGMENTIN 875-125 MG TAB 507358 AMOXICILLIN-POT CLAVULA [place] Inactive DIFLUCAN 150 MG TAB 1 qODay x 2 doses DIFLUCAN 150 MG TAB 330431 FLUCONAZOLE Inactive Advance Directives Directive Description Start Date PERMISSION TO SHARE Immunizations Vaccine Administration Date Value Standard Alf cription Seasonal influenza vaccine, injectable, containing preservative, for > 3 years old (Afluria, FluLaval, Fluzone, Fluvirin, Fluarix, Agriflu(>= 18 yo)) Fluzone (>3 yrs.) [[id number]] Influenza, seasonal, inject able Seasonal influenza vaccine, injectable, preservative free, for > 3 years old (Afluria, FluLaval, Fluzone, Fluvirin, Fluarix, Agriflu(>= 18 yo)) Fluzone preservative free (>3 yrs.) [[id number]] Influenza, seasonal, injectable, preservative free Seasonal influenza vaccine, injectable, containing preservative, for > 3 years old (Afluria, FluLaval, Fluzone, Fluvirin, Fluarix, Agriflu(>= 18 yo)) Fluzone (>3 yrs.) [[id number]] Influenza, seasonal, inject able Seasonal influenza vaccine, injectable, containing preservative, for > 3 years old (Afluria, FluLaval, Fluzone, Fluvirin, Fluarix, Agriflu(>= 18 yo)) Fluzone (>3 yrs.) [[id number]] Influenza, seasonal, inject able dT (Diphtheria and [...] ... - Chemistry sodium, serum 140 mmol/L 858-166 9753/02/24 potassium, serum 4.3 mmol/L 3.5-5.2 chloride, serum [...] 4.3-6.0 Lab Report: T3, TOTAL, INSULIN - [employer] Worker ry triiodothyronine (T3), serum 78 ng/dL 76-181 Office Visit: low blood sugars - Chemis try cholesterol, target level 200 mg/dL triglyceride, target level 200 mg/dL HDL cholesterol, serum, target level 35 mg/dL LDL target level 100 mg/dL Encounters Code Encounter Date Provider Facility CPT-97077 Level 3 Est. 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 Patient 18:12:34 CDT Shola Wright [facility] CPT-16212 Level 3 Est. Patient 19:34:46 CDT Shola Wright [facility] CPT-52543 Level 3 Est. Patient 14:19:37 CDT Abdirahman Rios MD [facility] CPT-29342 Level 3 Est. Patient 14:11:58 CDT Kalpesh goins MD [facility] CPT-00402 Level 3 Est. Patient 16:50:00 CDT Michelle BRADFORDP [facility] CPT-03553 Level 3 Est. Patient 17:11:32 PRODUCE FIELD MERCHANDISER Brandie bates MD PhD [facility] CPT-55195 Level 3 Est. Patient 16:31:47 PRODUCE FIELD MERCHANDISER Shola Wright [facility] CPT-90264 Level 3 Est. Patient 17:51:10 PRODUCE FIELD MERCHANDISER Abhinav Galvan MD [facility] CPT-23959 Level 4 Est. Patient 12:54:56 PRODUCE FIELD MERCHANDISER Kalpesh goins MD [facility]-56434 Level 4 Est. Patient 12:53:56 PRODUCE FIELD MERCHANDISER Kalpesh goins MD [facility] CPT-14318 Level 3 Est. Patient 17:56:58 CDT Shola Wright [facility] CPT-25115 Level 3 Est. Patient 14:26:20 CDT Janak butcher [facility] CPT-55016 Level 3 Est. Patient 09:38:41 CDT Shola Wright [facility] CPT-07237 Level 3 Est. Patient 14:45:26 CDT Edilberto tiwari [facility] CPT-83843 Level 3 Est. Patient 10:51:33 [facility] Level 3 Est. Patient 11:57:55 PRODUCE FIELD MERCHANDISER Shola Wright [facility] CPT-14716 Level 3 Est. Patient 09:53:33 PRODUCE FIELD MERCHANDISER Edilberto tiwari [facility] CPT-62073 Level 3 Est. Patient 14:42:54 PRODUCE FIELD MERCHANDISER Abhinav Galvan MD [facility]-72215 Level 3 Est. Patient 15:10:02 CDT Janak MCGILL [facility] CPT-00229 Level 3 Est. Patient 15:20:20 CDT Theo dennis MD [facility] CPT-81673 Level 2 Est. Patient 14:08:57 CDT Kalpesh goins MD [facility] CPT-92331 Level 3 Est. Patient 13:56:19 CDT Abdirahman Rios MD [facility] CPT-12820 Level 3 Est. Patient 13:59:37 CDT Abdirahman Rios MD [facility] CPT-71247 Level 2 Est. Patient 14:44:59 CDT Kalpesh goins MD [facility] CPT-67676 Level 3 Est. Patient 06:06:23 CDT Edilberto tiwari DO [facility] CPT-42999 Level 3 Est. Patient 15:23:54 CDT Abdirahman Rios MD [facility] CPT-41091 Level 3 Est. Patient 15:43:49 CDT Abdirahman Rios MD [facility] CPT-37480 Level 3 Est. Patient 12:46:47 PRODUCE FIELD MERCHANDISER Abdirahman Rios MD [facility] CPT-61480 Level 3 Est. Patient 08:13:35 PRODUCE FIELD MERCHANDISER Abdirahman Rios MD [facility] CPT-42807 Level 2 Est. Patient 09:36:42 PRODUCE FIELD MERCHANDISER Abdirahman Rios MD [facility] CPT-19079 Level 3 Est. Patient 10:56:43 CDT Abdirahman Rios MD [facility] CPT-11288 Level 3 Est. Patient 18:24:52 CDT Abdirahman Rios MD [facility] CPT-57167 Level 3 Est. Patient 13:27:22 CDT Abdirahman Rios MD [facility] Procedures Code Procedure Name Date Entry Date Standard Desc ription CPT-89200 Immunization Single Admin 16:41:53 CDT 2013 CPT-27239 Fluzone Quadrivalent Intramuscular Suspe nsion 0.5 ML 16:41:53 CDT CPT-OV Office Visit 16:39:18 CDT CPT-OV Office Visit 16:16:36 CDT CPT-OV Office Visit 15:34:48 CDT CPT-81508 Postop F/U Visit 14:50:12 CDT CPT-88213 Postop F/U Visit 14:41:10 CDT CPT-10845 Venipuncture Draw Fee 11:38:04 [employer] FIELD MERCHANDISER CPT-65307 Postop F/U Visit 19:02:59 [employer]CE FIELD MERCHANDISER CPT-00088 Postop F/U Visit 12:04:54 [employer]ODUCE FIELD MERCHANDISER CPT-84812 Administration single or combination vac cine inc oral 15:56:43 CDT CPT-66007 Influenza split virus > age 3 15:56:43 CDT CPT-80010 Hand comp min 3V 14:25:19 CDT CPT-26566 Postop F/U Visit 21:40:51 CDT CPT-11918 Postop F/U Visit 10:58:43 CDT CPT-99489 Administration single or combination vac cine inc oral 12:33:54 PRODUCE FIELD MERCHANDISER CPT-90070 Influenza Preservative Free split virus >age 3 12:33:54 [employer]ODUCE FIELD MERCHANDISER CPT-12414 Administration single or combination vac cine inc oral 09:30:51 CDT CPT-25054 Influenza split virus > age 3 09:30:51 CDT CPT-33387 Postop F/U Visit 15:14:53 CDT CPT-82982 Postop F/U Visit 13:50:14 CDT CPT-35134 Postop F/U Visit 13:34:52 CDT CPT-OV Office Visit 16:55:03 CDT CPT-94267 [place] of cervix w bx ECC 13:32:50 CDT 10/19 CPT-J1885 Toradol 60 mg (Ketorolac) 15:31:59 CDT 2011 CPT-J1885 Toradol 60 mg (Ketorolac) 15:23:54 CDT 2011 CPT-04464 Visit 11:34:37 [employer]CE FIELD MERCHANDISER CPT-53587 Visit 10:52:39 PRODUCE FIELD MERCHANDISER CPT-65961 Visit 10:12:02 PRODUCE FIELD MERCHANDISER CPT-13980 Visit 11:22:43 PRODUCE FIELD MERCHANDISER CPT-90698 Visit 11:24:12 [employer]ODUCE FIELD MERCHANDISER CPT-43815 Visit 10:47:05 PRODUCE FIELD MERCHANDISER CPT-OV Office Visit 10:26:16 PRODUCE FIELD MERCHANDISER CPT-OV Office Visit 15:34:31 [employer]CE FIELD MERCHANDISER CPT-00559 Visit 10:42:08 PRODUCE FIELD MERCHANDISER CPT-88128 Visit 10:52:45 [employer]ODUCE FIELD MERCHANDISER CPT-000 Give Appropriate Flu Vaccine 16:56:41 CDT 2 CPT-65734 Administration single or combination vac cine inc oral 10:33:21 CDT CPT-55261 Influenza split virus > age 3 10:33:21 CDT CPT-54366 Visit 13:23:09 CDT CPT-95685 Visit 18:24:52 CDT CPT-81226 Sono OB comp > 14 weeks 12:07:49 CDT 04/07
--- OUTSIDE RECORDS SUMMARY | 2020-01-18 17:15 | XMS REPORT | Clinical Summary ---
Author Author Admin, Jeri Rashid Organization [facility] Address Unknown Phone Allergies, Adverse [...] by mouth twice a day 11/05 SULFAMETHOXAZOLE-TRIMETHOPRIM [id number] No Longer Active Good Julian MD Active IBUPROFEN 800 MG TABS 1 tid prn IBUPROFEN 03957872440 Active Good Julian MD Active ENDOCET 10-325 MG TABS 1 q 6 hr prn OXYCODONE-A CETAMINOPHEN 40201653757 Active Good Julian MD Active HYDROCODONE-ACETAMINOPHEN 7.5-325 MG TABS 1 four times a day as needed for pain HYDROCODONE-ACETAMINOPHEN 80899351501 No Longer Activ crystal Julian MD Active KEFLEX 500 MG CAP 1 tab po tid CEPHALEXIN 645748 74318 No Longer Active Hira Moser APRN Active IBUPROFEN 800 MG TAB 1 pill three times daily as needed for pain IBUPROFEN 23046513785 No Longer Active Kalpesh Dong MD Active PROMETHAZINE-CODEINE 6.25-10 MG/5ML SYRP 1 tsp every 6 hrs prn c ough PROMETHAZINE-CODEINE 26906122451 No Longer Active Kalpesh Carr Active ALPRAZOLAM 0.5 MG TABS 1 PO bid PRN ALPRAZOLAM 988484 85352 Active Shola MCGILL Active HYDROCODONE-ACETAMINOPHEN 5-325 MG TABS 1 tab by mouth every 6 hours as needed HYDROCODONE-ACETAMINOPHEN 51437944830 No Longer Activ e Shola MCGILL Active CEPHALEXIN 500 MG CAPS 1 PO bid x 7 days CEPHAL EXIN 91044406752 No Longer Active Shola MCGILL Active BACTRIM DS 800-160 MG TAB 1 tab by mouth twice daily 2 TRIMETHOPRIM-SULFAMETHOXAZOLE 75607072213 No Longer Active Kalpesh Dong MD Active HYDROCODONE-ACETAMINOPHEN 5-325 MG TABS 1 PO tid PRN pain 5 HYDROCODONE-ACETAMINOPHEN 84661829836 No Longer Active Abhinav Galvan MD Active IMPLANON 68 MG IMPL IMPLANTED IN LEFT ARM ETONO GESTREL 97935172069 No Longer Active 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 APPLICATION COUNSELOR Active AMOXICILLIN 500 MG TABS 2 tabs PO bid x 10 d AM OXICILLIN 59294974591 No Longer Active Kalpesh Dong MD Active LEVAQUIN 500 MG TABS 1 PO q day x 7 days LEVOFL OXACIN 99697419351 No Longer Active Shola MCGILL Active PROAIR HFA 108 (90 BASE) MCG/ACT AERS 2 puff q 4-6 hrs PRN ALBUTEROL SULFATE 38983296739 Active Shola MCGILL Acti ve FIORICET 50-325-40 MG TABS 2 PO q 8 hrs PRN FOSTER [id number] 14545774210 Active Abdirahman Rios MD Active AMITRIPTYLINE HCL 25 MG TAB 1 tab by mouth daily 60 minutes before bedtime AMITRIPTYLINE HCL 80855120877 No Longer Active Shola MCGILL Active LORTAB 5 5-500 MG TABS 1/2 to 1 tablet by mouth go ry 6 hours as needed for pain HYDROCODONE-ACETAMINOPHEN 84232084907 No Longer Active Shola MCGILL Active CEPHALEXIN 500 MG TABS Take one by mouth four times daily, morning, noon, early evening and bedtime. CEPHALEXIN 22102975537 No Long er Active Hira Perazaabel APPLICATION COUNSELOR Active TYLENOL/CODEINE #3 300-30 MG TAB 1-2 po q6hr PRN Pain ACETAMINOPHEN-CODEINE 37588829741 No Longer Active Edilberto Marino DO Active PRISTIQ 50 MG [id number] 1 po qd DESVENLAFAXI NE SUCCINATE 57251102624 No Longer Active Edilberto Marino DO Active PENICILLIN V POTASSIUM 500 MG TAB 1 four times a day 2 PENICILLIN V POTASSIUM 98224665900 No Longer Active Edilberto Marino DO Active DOXYCYCLINE HYCLATE 100 MG CAPS Take one (1) tablet by mouth twice a day DOXYCYCLINE HYCLATE 85158972326 No Longer Active Ronnie Galvan MD Active HYDROCODONE-ACETAMINOPHEN 5-325 MG TABS 1 po q 6hr PRN Pain 2011 HYDROCODONE-ACETAMINOPHEN 39638401603 No Longer Active Patri joan Perez RN Active BACTRIM DS 800-160 MG TAB 1 tab by mouth twice daily 2 TRIMETHOPRIM-SULFAMETHOXAZOLE 97977519404 No Longer Active Kalpesh Dong MD Active LORTAB 5 5-500 MG TABS 1/2 to 1 tablet by mouth go ry 4 hours as needed for pain HYDROCODONE-ACETAMINOPHEN 41305990094 No Longer Active Kalpesh Dong MD Active GENERESS FE 0.8-25 MG-MCG CHEW Take one by mouth daily NORETHIN-ETH ESTRADIOL-FE 27337814353 No Longer Active Kalpesh Dong MD Active HYDROCODONE-ACETAMINOPHEN 7.5-500 MG TABS 1-2 every 4 hours as needed HYDROCODONE-ACETAMINOPHEN 46509174146 No Longer Activ e Kalpesh Dong MD Active FERROUS SULFATE 325 (65 FE) MG TABS 1 tablet by mouth twice yung y FERROUS SULFATE 20970806676 No Longer Active Kalpesh Dong MD Active IBUPROFEN 600 MG TAB 1 po q6-8hr PRN IBUPROFEN 11217928895 No Longer Active Kalpesh Dong MD Active SPIRONOLACTONE 25 MG TAB 1 tablet by mouth daily 01/22 SPIRONOLACTONE 03212092943 No Longer Active Kalpesh Dong MD Acti ve HYDROCODONE-ACETAMINOPHEN 7.5-325 MG TABS 1 po QID PRN Pain 2011 HYDROCODONE-ACETAMINOPHEN 68478716222 No Longer Active Kalpesh Dong MD Active CLINDAMYCIN HCL 300 MG CAPS 1 po q6hr x 7 days CLINDAMYCIN HCL 20131548079 No Longer Active Edilberto Marino DO Active PREDNISONE 20 MG TAB 2 tabs daily for 4 days, 1 t ab daily for 4 days, 1/2 tab daily for 4 days PREDNISONE 23340721319 No Longer Active Edilberto Marino DO Active PERCOCET 5-325 MG TABS 1 tablet by mouth every 6 hours as ne eded for pain OXYCODONE-ACETAMINOPHEN 85566938209 No Longer Active Abdirahman Rios MD Active VITAMINS TABS Take one by mouth daily MV & MIN W/FE-FA TABS 13908680621 No Longer Active Abdirahman Rios MD Active LUIS 3-0.02 MG TABS 1 tablet by mouth daily as directed DROSPIRENONE-ETHINYL ESTRADIOL 24104271156 No Longer Active Abdirahman Rios MD Active LORATADINE 10 MG TABS 1 tablet by mouth daily L ORATADINE 60946763334 No Longer Active Kalpesh Dong MD Active HYDROCODONE-ACETAMINOPHEN 5-325 MG TABS 1 po q 6hr PRN Pain 2010 HYDROCODONE-ACETAMINOPHEN 80143005262 No Longer Active Edilberto Marino DO Active BACTRIM DS 800-160 MG TAB 1 tab by mouth twice daily 2 TRIMETHOPRIM-SULFAMETHOXAZOLE 83784965123 No Longer Active Abdirahman Rios MD Active 28-0.8 MG TABS Take one by mouth daily 09/20 VIT-FE FUMARATE-FA 85514303266 No Longer Active Abdirahman Rios MD Active CIPRO 500 MG TAB 1 tablet by mouth twice daily CIPROFLOXACIN HCL 55957729348 No Longer Active Abdirahman Rios MD Active BENADRYL 25 MG CAP 1 po q8hr PRN Congestion DIPHENHYDRAMINE HCL 93864450148 No Longer Active Abdirahman Rios MD Active ZOLOFT 50 MG TAB 1 po qd SERTRALINE HCL 447404 33039 No Longer Active Abdirahman Rois MD Active AMOXICILLIN 875 MG TABS 1 tab by mouth twice daily 201 08/09/13 AMOXICILLIN 98769095457 No Longer Active Abdirahman Rios MD Activ e AMOXICILLIN 875 MG TABS 1 tab by mouth twice daily 201 07/19/27 AMOXICILLIN 35803605872 No Longer Active Abdirahman Rios MD Activ e BACTRIM DS 800-160 MG TAB 2 tab by mouth twice daily 2 TRIMETHOPRIM-SULFAMETHOXAZOLE 90495828620 No Longer Active Abdirahman Rios MD Active KEFLEX 500 MG CAP 1 po tid x 10 days CEPHALEXIN 63216742164 No Longer Active Abdirahman Rios MD Active AMOXICILLIN 875 MG TABS 1 tab by mouth twice daily 201 07/18/07 AMOXICILLIN 28809593098 No Longer Active Abdirahman Rios MD Activ e BACTRIM DS 800-160 MG TAB 2 tab by mouth twice daily 2 BACTRIM DS 800-160 MG TAB TRIMETHOPRIM-SULFAMETHOXAZOLE Inactive ZOLOFT 50 MG TAB 1 po qd ZOLOFT 50 MG TAB 3129 41 SERTRALINE HCL Inactive BENADRYL 25 MG CAP 1 po q8hr PRN Congestion BENADRYL 25 MG CAP 9257619 DIPHENHYDRAMINE HCL Inactive 28-0.8 MG TABS Take one by mouth daily 09/20 28-0.8 MG TABS VIT-FE FUMARATE-FA Inactive HYDROCODONE-ACETAMINOPHEN 5-325 MG TABS 1 po q 6hr PRN Pain 2010 HYDROCODONE-ACETAMINOPHEN 5-325 MG TABS 076008 HYDROCODONE-ACETAMINOPHEN Inactive LORATADINE 10 MG TABS 1 tablet by mouth daily LORATADINE 10 MG TABS 901092 LORATADINE Inactive LUIS 3-0.02 MG TABS 1 tablet by mouth daily as directed LUIS 3-0.02 MG TABS DROSPIRENONE-ETHINYL ESTRADIOL Inactive VITAMINS TABS Take one by mouth daily VITAMINS TABS MV & MIN W/FE-FA TABS Inactive PERCOCET 5-325 MG TABS 1 tablet by mouth every 6 hours as ne eded for pain PERCOCET 5-325 MG TABS 3219897 OXYCODONE-ACETAMIN OPHEN Inactive PREDNISONE 20 MG TAB 2 tabs daily for 4 days, 1 t ab daily for 4 days, 1/2 tab daily for 4 days PREDNISONE 20 MG TAB 672637 PREDNISON E Inactive CLINDAMYCIN HCL 300 MG CAPS 1 po q6hr x 7 days CLINDAMYCIN HCL 300 MG CAPS 859562 CLINDAMYCIN HCL Inactive HYDROCODONE-ACETAMINOPHEN 7.5-325 MG TABS 1 po QID PRN Pain 2011 HYDROCODONE-ACETAMINOPHEN 7.5-325 MG TABS 864498 HYDROCODONE-ACETAMINOPHEN Inactive SPIRONOLACTONE 25 MG TAB 1 tablet by mouth daily 01/22 SPIRONOLACTONE 25 MG TAB 086586 SPIRONOLACTONE Inactive IBUPROFEN 600 MG TAB 1 po q6-8hr PRN IBUPROFEN 600 MG TAB 693925 IBUPROFEN Inactive FERROUS SULFATE 325 (65 FE) MG TABS 1 tablet by mouth twice yung y FERROUS SULFATE 325 (65 FE) MG TABS 301243 FERROUS SULF ATE Inactive HYDROCODONE-ACETAMINOPHEN 7.5-500 MG TABS 1-2 every 4 hours as needed HYDROCODONE-ACETAMINOPHEN 7.5-500 MG TABS 344148 HYDROCODONE-ACETAMINOPHEN Inactive GENERESS FE 0.8-25 MG-MCG CHEW [...] PRN Pain 2011 HYDROCODONE-ACETAMINOPHEN 5-325 MG TABS 825410 HYDROCODONE-ACETAMINOPHEN Inactive DOXYCYCLINE HYCLATE 100 MG CAPS Take one (1) tablet by mouth twice a day DOXYCYCLINE HYCLATE 100 MG CAPS 465406 DOXYCYCLINE HYCLATE Inactive PENICILLIN V POTASSIUM 500 MG TAB 1 four times a day 2 PENICILLIN V POTASSIUM 500 MG TAB 755063 PENICILLIN V POTASSIUM [place] ctive PRISTIQ 50 MG [id number] 1 po qd PRISTIQ 50 MG [id number] DESVENLAFAXINE SUCCINATE Inactive TYLENOL/CODEINE #3 300-30 MG TAB 1-2 po q6hr PRN Pain TYLENOL/CODEINE #3 300-30 MG TAB 153987 ACETAMINOPHEN-CODEINE Inact krishna CEPHALEXIN 500 MG TABS Take one by mouth four times daily, morning, noon, early evening and bedtime. CEPHALEXIN 500 MG TABS 910196 CEPHALEXIN Inactive LORTAB 5 5-500 MG TABS 1/2 to 1 tablet by mouth go ry 6 hours as needed for pain LORTAB 5 5-500 MG TABS HYDROCODONE-A CETAMINOPHEN Inactive AMITRIPTYLINE HCL 25 MG TAB 1 tab by mouth daily 60 minutes before bedtime AMITRIPTYLINE HCL 25 MG TAB 394145 AMITRIPTYLINE HCL Inactive AMOXICILLIN 500 MG TABS 2 tabs PO bid x 10 d 7 AMOXICILLIN 500 MG TABS 131309 AMOXICILLIN Inactive IMPLANON 68 MG IMPL IMPLANTED IN LEFT ARM IMPLANON 68 MG IMPL ETONOGESTREL Inactive HYDROCODONE-ACETAMINOPHEN 5-325 MG TABS 1 PO tid PRN pain 5 HYDROCODONE-ACETAMINOPHEN 5-325 MG TABS 288508 HYDROCODONE-ACETAMIN OPHEN Inactive BACTRIM DS 800-160 MG TAB 1 tab by mouth twice daily 2 BACTRIM DS 800-160 MG TAB TRIMETHOPRIM-SULFAMETHOXAZOLE Inac tive CEPHALEXIN 500 MG CAPS 1 PO bid x 7 days CEPHALEXIN 500 MG CAPS 079430 CEPHALEXIN Inactive HYDROCODONE-ACETAMINOPHEN 5-325 MG TABS 1 tab by mouth every 6 hours as needed HYDROCODONE-ACETAMINOPHEN 5-325 MG TABS 459973 HYDROCODONE-ACETAMINOPHEN Inactive PROMETHAZINE-CODEINE 6.25-10 MG/5ML SYRP 1 tsp every 6 hrs prn c ough PROMETHAZINE-CODEINE 6.25-10 MG/5ML SYRP 397593 PROMETH AZINE-CODEINE Inactive IBUPROFEN 800 MG TAB 1 pill three times daily as needed for pain IBUPROFEN 800 MG TAB 410640 IBUPROFEN Inactive KEFLEX 500 MG CAP 1 tab po tid KEFLEX 500 MG CAP 404093 CEPHALEXIN Inactive HYDROCODONE-ACETAMINOPHEN 7.5-325 MG TABS 1 four times a day as needed for pain HYDROCODONE-ACETAMINOPHEN 7.5-325 MG TABS 506359 HYDROCODONE-ACETAMINOPHEN Inactive BACTRIM DS 800-160 MG TABS by mouth twice a day 11/05 BACTRIM DS 800-160 MG TABS SULFAMETHOXAZOLE-TRIMETHOPRIM Inactive AMOXICILLIN 875 MG TABS 1 tab by mouth twice daily 201 07/18/07 AMOXICILLIN 875 MG TABS 761520 AMOXICILLIN Inactive KEFLEX 500 MG CAP 1 po tid x 10 days KEFLEX 500 MG CAP 171220 CEPHALEXIN Inactive AMOXICILLIN 875 MG TABS 1 tab by mouth twice daily 201 07/19/27 AMOXICILLIN 875 MG TABS 230414 AMOXICILLIN Inactive AMOXICILLIN 875 MG TABS 1 tab by mouth twice daily 08/09/13 AMOXICILLIN 875 MG TABS 662221 AMOXICILLIN Inactive CIPRO 500 MG TAB 1 tablet by mouth twice daily CIPRO 500 MG TAB 094644 CIPROFLOXACIN HCL Inactive BACTRIM DS 800-160 MG TAB 1 tab by mouth twice daily 2 BACTRIM DS 800-160 MG TAB TRIMETHOPRIM-SULFAMETHOXAZOLE Inac tive LEVAQUIN 500 MG TABS 1 PO q day x 7 days LEVAQUIN 500 MG TABS 067943 LEVOFLOXACIN Inactive Advance Directives Directive Description Start Date PERMISSION TO SHARE Immunizations Vaccine Administration Date Value Standard Alf cription Seasonal influenza vaccine, injectable, containing preservative, for > 3 years old (Afluria, FluLaval, Fluzone, Fluvirin, Fluarix, Agriflu(>= 18 yo)) Fluzone (>3 yrs.) [[id number]] Influenza, seasonal, inject able Seasonal influenza vaccine, injectable, preservative free, for > 3 years old (Afluria, FluLaval, Fluzone, Fluvirin, Fluarix, Agriflu(>= 18 yo)) Fluzone preservative free (>3 yrs.) [[id number]] Influenza, seasonal, injectable, preservative free Seasonal influenza vaccine, injectable, containing preservative, for > 3 years old (Afluria, FluLaval, Fluzone, Fluvirin, Fluarix, Agriflu(>= 18 yo)) Fluzone (>3 yrs.) [[id number]] Influenza, seasonal, inject able Seasonal influenza vaccine, injectable, containing preservative, for > 3 years old (Afluria, FluLaval, Fluzone, Fluvirin, Fluarix, Agriflu(>= 18 yo)) Fluzone (>3 yrs.) [[id number]] Influenza, seasonal, inject able dT (Diphtheria and [...] ... - Chemistry sodium, serum 140 mmol/L 210-699 8030/02/24 potassium, serum 4.3 mmol/L 3.5-5.2 chloride, serum [...] 4.3-6.0 Lab Report: T3, TOTAL, INSULIN - [employer] [place] ry triiodothyronine, serum 78 ng/dL 76-181 Lab [...] mg/dL Encounters Code Encounter Date Provider Facility CPT-20280 Level 3 Est. Patient 14:11:58 CDT Kalpesh goins MD [facility] CPT-80837 Level 3 Est. Patient 16:50:00 CDT Michelle MERCADO [facility] CPT-75235 Level 3 Est. Patient 17:11:32 EPITAXIAL REACTOR OPERATOR Brandie bates MD PhD [facility] CPT-92376 Level 3 Est. Patient 16:31:47 EPITAXIAL REACTOR OPERATOR Shola MCGILL [facility] CPT-59272 Level 3 Est. Patient 17:51:10 EPITAXIAL REACTOR OPERATOR Abhinav Galvan MD [facility] CPT-92780 Level 4 Est. Patient 12:54:56 EPITAXIAL REACTOR OPERATOR Kalpesh goins MD [facility] CPT-63616 Level 4 Est. Patient 12:53:56 EPITAXIAL REACTOR OPERATOR Kalpesh goins MD [facility] CPT-78593 Level 3 Est. Patient 17:56:58 CDT Shola Wright [facility] CPT-18497 Level 3 Est. Patient 14:26:20 CDT Janak butcher [facility] CPT-40927 Level 3 Est. Patient 09:38:41 CDT Shola Keesha Wright [facility] CPT-35540 Level 3 Est. Patient 14:45:26 CDT Edilberto tiwari [facility]-75610 Level 3 Est. Patient 10:51:33 [facility] Level [facility] Est. Patient 11:57:55 EPITAXIAL REACTOR OPERATOR Shola Thao Adriana [facility] CPT-76468 Level 3 Est. Patient 09:53:33 EPITAXIAL REACTOR OPERATOR Edilberto tiwari [facility] CPT-53355 Level 3 Est. Patient 14:42:54 EPITAXIAL REACTOR OPERATOR Abhinav Galvan MD [facility] CPT-55499 Level 3 Est. Patient 15:10:02 CDT Janak butcher [facility] CPT-58262 Level 3 Est. Patient 15:20:20 CDT Theo dennis MD [facility] CPT-77613 Level 2 Est. Patient 14:08:57 CDT Kalpesh goins MD [facility]-42468 Level 3 Est. Patient 13:56:19 CDT Abdirahman Rios MD [facility] CPT-98913 Level 3 Est. Patient 13:59:37 CDT Abdirahman Rios MD [facility] CPT-55461 Level 2 Est. Patient 14:44:59 CDT Kalpesh goins MD [facility] CPT-70440 Level 3 Est. Patient 06:06:23 CDT Edilberto tiwari DO [facility] CPT-45852 Level 3 Est. Patient 15:23:54 CDT Abdirahman Rios MD [facility] CPT-49363 Level 3 Est. Patient 15:43:49 CDT Abdirahman Rios MD [facility] CPT-78818 Level 3 Est. Patient 12:46:47 EPITAXIAL REACTOR OPERATOR Abdirahman Rios MD [facility] CPT-58354 Level 3 Est. Patient 08:13:35 EPITAXIAL REACTOR OPERATOR Abdirahman Rios MD [facility] CPT-59551 Level 2 Est. Patient 09:36:42 EPITAXIAL REACTOR OPERATOR Abdirahman Rios MD [facility] CPT-63316 Level 3 Est. Patient 10:56:43 CDT Abdirahman Rios MD [facility] CPT-02127 Level 3 Est. Patient 18:24:52 CDT Abdirahman Rios MD [facility] CPT-33783 Level 3 Est. Patient 13:27:22 CDT bAdirahman Rios MD [facility] Procedures Code Procedure Name Date Entry Date Standard Desc ription CPT-OV Office Visit 15:34:48 CDT CPT-94137 Postop F/U Visit 14:50:12 CDT CPT-07369 Postop F/U Visit 14:41:10 CDT CPT-39197 Venipuncture Draw Fee 11:38:04 EPITAXIAL REACTOR OPERATOR CPT-17682 Postop F/U Visit 19:02:59 EPITAXIAL REACTOR OPERATOR CPT-40841 Postop F/U Visit 12:04:54 EPITAXIAL REACTOR OPERATOR CPT-22088 Administration single or combination vac cine inc oral 15:56:43 CDT CPT-65285 Influenza split virus > age 3 15:56:43 CDT CPT-83509 Hand comp min 3V 14:25:19 CDT CPT-83809 Postop F/U Visit 21:40:51 CDT CPT-50046 Postop F/U Visit 10:58:43 CDT CPT-79195 Administration single or combination vac cine inc oral 12:33:54 EPITAXIAL REACTOR OPERATOR CPT-90488 Influenza Preservative Free split virus >age 3 12:33:54 EPITAXIAL REACTOR OPERATOR CPT-41722 Administration single or combination vac cine inc oral 09:30:51 CDT CPT-93442 Influenza split virus > age 3 09:30:51 CDT CPT-69382 Postop F/U Visit 15:14:53 CDT CPT-76236 Postop F/U Visit 13:50:14 CDT CPT-89647 Postop F/U Visit 13:34:52 CDT CPT-OV Office Visit 16:55:03 CDT CPT-06640 [place] of cervix w bx ECC 13:32:50 CDT 10/19 CPT-J1885 Toradol 60 mg (Ketorolac) 15:31:59 CDT 2011 CPT-J1885 Toradol 60 mg (Ketorolac) 15:23:54 CDT 2011 CPT-94916 Visit 11:34:37 EPITAXIAL REACTOR OPERATOR CPT-87887 Visit 10:52:39 EPITAXIAL REACTOR OPERATOR CPT-00471 Visit 10:12:02 EPITAXIAL REACTOR OPERATOR CPT-44479 Visit 11:22:43 EPITAXIAL REACTOR OPERATOR CPT-36211 Visit 11:24:12 EPITAXIAL REACTOR OPERATOR CPT-72923 Visit 10:47:05 EPITAXIAL REACTOR OPERATOR CPT-OV Office Visit 10:26:16 EPITAXIAL REACTOR OPERATOR CPT-OV Office Visit 15:34:31 EPITAXIAL REACTOR OPERATOR CPT-84486 Visit 10:42:08 EPITAXIAL REACTOR OPERATOR CPT-76795 Visit 10:52:45 EPITAXIAL REACTOR OPERATOR CPT-000 Give Appropriate Flu Vaccine 16:56:41 CDT 2 CPT-75902 Administration single or combination vac cine inc oral 10:33:21 CDT CPT-53002 Influenza split virus > age 3 10:33:21 CDT CPT-85299 Visit 13:23:09 CDT CPT-41745 Visit 18:24:52 CDT CPT-01579 Sono OB comp > 14 weeks 12:07:49 CDT 04/07
--- OUTSIDE RECORDS SUMMARY | 2020-01-18 17:16 | XMS REPORT | Clinical Summary ---
Author Author Admin, Jeri Rashid Organization [facility] Address Unknown Phone Allergies, Adverse Reactions, Alerts [...] by mouth twice a day 11/05 SULFAMETHOXAZOLE-TRIMETHOPRIM [id number] No Longer Active Good Julian MD Active IBUPROFEN 800 MG TABS 1 tid prn IBUPROFEN 41233724086 Active Good Julian MD Active ENDOCET 10-325 MG TABS 1 q 6 hr prn OXYCODONE-A CETAMINOPHEN 35813294198 Active Shola MCGILL Active HYDROCODONE-ACETAMINOPHEN 7.5-325 MG TABS 1 four times a day as needed for pain HYDROCODONE-ACETAMINOPHEN 01313427844 No Longer Activ crystal Julian MD Active KEFLEX 500 MG CAP 1 tab po tid CEPHALEXIN 012419 10321 No Longer Active Hira Moser APRN Active IBUPROFEN 800 MG TAB 1 pill three times daily as needed for pain IBUPROFEN 35391669199 No Longer Active Kalpesh Dong MD Active PROMETHAZINE-CODEINE 6.25-10 MG/5ML SYRP 1 tsp every 6 hrs prn c ough PROMETHAZINE-CODEINE 11071512944 No Longer Active Kalpesh Carr Active ALPRAZOLAM 0.5 MG TABS 1 PO bid PRN ALPRAZOLAM 295099 38256 Active Shola MCGILL Active HYDROCODONE-ACETAMINOPHEN 5-325 MG TABS 1 tab by mouth every 6 hours as needed HYDROCODONE-ACETAMINOPHEN 41650592840 No Longer Activ e Shola MCGILL Active CEPHALEXIN 500 MG CAPS 1 PO bid x 7 days CEPHAL EXIN 10792169988 No Longer Active Shola MCGILL Active BACTRIM DS 800-160 MG TAB 1 tab by mouth twice daily 2 TRIMETHOPRIM-SULFAMETHOXAZOLE 12405586975 No Longer Active Kalpesh Dong MD Active HYDROCODONE-ACETAMINOPHEN 5-325 MG TABS 1 PO tid PRN pain 5 HYDROCODONE-ACETAMINOPHEN 84024110400 No Longer Active Abhinav Galvan MD Active IMPLANON 68 MG IMPL IMPLANTED IN LEFT ARM ETONO GESTREL 68847713963 No Longer Active 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 DIRECTOR OF MEDICAL REVIEW Active AMOXICILLIN 500 MG TABS 2 tabs PO bid x 10 d AM OXICILLIN 56852562973 No Longer Active Kalpesh Dong MD Active LEVAQUIN 500 MG TABS 1 PO q day x 7 days LEVOFL OXACIN 62239125026 No Longer Active Shola MCGILL Active PROAIR HFA 108 (90 BASE) MCG/ACT AERS 2 puff q 4-6 hrs PRN ALBUTEROL SULFATE 48609495203 Active Shola MCGILL Acti ve FIORICET 50-325-40 MG TABS 2 PO q 8 hrs PRN FOSTER ISTOELUBSL-CCQT-GWMCGZAO 28904077048 Active Abdirahman Rios MD Active AMITRIPTYLINE HCL 25 MG TAB 1 tab by mouth daily 60 minutes before bedtime AMITRIPTYLINE HCL 98955663616 No Longer Active Shola MCGILL Active LORTAB 5 5-500 MG TABS 1/2 to 1 tablet by mouth go ry 6 hours as needed for pain HYDROCODONE-ACETAMINOPHEN 79687964986 No Longer Active Shola MCGILL Active CEPHALEXIN 500 MG TABS Take one by mouth four times daily, morning, noon, early evening and bedtime. CEPHALEXIN 55231405666 No Long er Active Hira Moser DIRECTOR OF MEDICAL REVIEW Active TYLENOL/CODEINE #3 300-30 MG TAB 1-2 po q6hr PRN Pain ACETAMINOPHEN-CODEINE 07656974736 No Longer Active Edilberto Marino DO Active PRISTIQ 50 MG [id number] 1 po qd DESVENLAFAXI NE SUCCINATE 19472361235 No Longer Active Edilberto Marino DO Active PENICILLIN V POTASSIUM 500 MG TAB 1 four times a day 2 PENICILLIN V POTASSIUM 51006957497 No Longer Active Edilberto Marino DO Active DOXYCYCLINE HYCLATE 100 MG CAPS Take one (1) tablet by mouth twice a day DOXYCYCLINE HYCLATE 52035678524 No Longer Active Ronnie Galvan MD Active HYDROCODONE-ACETAMINOPHEN 5-325 MG TABS 1 po q 6hr PRN Pain 2011 HYDROCODONE-ACETAMINOPHEN 56945451263 No Longer Active Patri joan Perez RN Active BACTRIM DS 800-160 MG TAB 1 tab by mouth twice daily 2 TRIMETHOPRIM-SULFAMETHOXAZOLE 02037624711 No Longer Active Kalpesh Dong MD Active LORTAB 5 5-500 MG TABS 1/2 to 1 tablet by mouth go ry 4 hours as needed for pain HYDROCODONE-ACETAMINOPHEN 96986367714 No Longer Active Kalpesh Dong MD Active GENERESS FE 0.8-25 MG-MCG CHEW Take one by mouth daily NORETHIN-ETH ESTRADIOL-FE 73098423678 No Longer Active Kalpesh Dong MD Active HYDROCODONE-ACETAMINOPHEN 7.5-500 MG TABS 1-2 every 4 hours as needed HYDROCODONE-ACETAMINOPHEN 19002950815 No Longer Activ e Kalpesh Dong MD Active FERROUS SULFATE 325 (65 FE) MG TABS 1 tablet by mouth twice yung y FERROUS SULFATE 10086780408 No Longer Active Kalpesh Dong MD Active IBUPROFEN 600 MG TAB 1 po q6-8hr PRN IBUPROFEN 56781645246 No Longer Active Kalpesh Dong MD Active SPIRONOLACTONE 25 MG TAB 1 tablet by mouth daily 01/22 SPIRONOLACTONE 03775703866 No Longer Active Kalpesh Dong MD Acti ve HYDROCODONE-ACETAMINOPHEN 7.5-325 MG TABS 1 po QID PRN Pain 2011 HYDROCODONE-ACETAMINOPHEN 45078027475 No Longer Active Kalpesh Dong MD Active CLINDAMYCIN HCL 300 MG CAPS 1 po q6hr x 7 days CLINDAMYCIN HCL 56178479769 No Longer Active Edilberto Marino DO Active PREDNISONE 20 MG TAB 2 tabs daily for 4 days, 1 t ab daily for 4 days, 1/2 tab daily for 4 days PREDNISONE 88464559981 No Longer Active Edilberto Marino DO Active PERCOCET 5-325 MG TABS 1 tablet by mouth every 6 hours as ne eded for pain OXYCODONE-ACETAMINOPHEN 97313655851 No Longer Active Abdirahman Rios MD Active VITAMINS TABS Take one by mouth daily MV & MIN W/FE-FA TABS 49297620223 No Longer Active Abdirahman Rios MD Active LUIS 3-0.02 MG TABS 1 tablet by mouth daily as directed DROSPIRENONE-ETHINYL ESTRADIOL 33333289947 No Longer Active Abdirahman Rios MD Active LORATADINE 10 MG TABS 1 tablet by mouth daily L ORATADINE 71001417337 No Longer Active Kalpesh Dong MD Active HYDROCODONE-ACETAMINOPHEN 5-325 MG TABS 1 po q 6hr PRN Pain 2010 HYDROCODONE-ACETAMINOPHEN 90610936349 No Longer Active Edilberto Marino DO Active BACTRIM DS 800-160 MG TAB 1 tab by mouth twice daily 2 TRIMETHOPRIM-SULFAMETHOXAZOLE 88257904965 No Longer Active Abdirahman Rios MD Active 28-0.8 MG TABS Take one by mouth daily 09/20 VIT-FE FUMARATE-FA 31109640835 No Longer Active Abdirahman Rios MD Active CIPRO 500 MG TAB 1 tablet by mouth twice daily CIPROFLOXACIN HCL 37629922422 No Longer Active Abdirahman Rios MD Active BENADRYL 25 MG CAP 1 po q8hr PRN Congestion DIPHENHYDRAMINE HCL 04327174198 No Longer Active Abdirahman Rios MD Active ZOLOFT 50 MG TAB 1 po qd SERTRALINE HCL 109542 45291 No Longer Active Abdirahman Rios MD Active AMOXICILLIN 875 MG TABS 1 tab by mouth twice daily 201 08/09/13 AMOXICILLIN 49692561913 No Longer Active Abdirahman Rios MD Activ e AMOXICILLIN 875 MG TABS 1 tab by mouth twice daily 201 07/19/27 AMOXICILLIN 51346011621 No Longer Active Abdirahman Rios MD Activ e BACTRIM DS 800-160 MG TAB 2 tab by mouth twice daily 2 TRIMETHOPRIM-SULFAMETHOXAZOLE 45375184745 No Longer Active Abdirahman Rios MD Active KEFLEX 500 MG CAP 1 po tid x 10 days CEPHALEXIN 71590674958 No Longer Active Abdirahman Rios MD Active AMOXICILLIN 875 MG TABS 1 tab by mouth twice daily 201 07/18/07 AMOXICILLIN 53900736366 No Longer Active Abdirahman Rios MD Activ e BACTRIM DS 800-160 MG TAB 2 tab by mouth twice daily 2 BACTRIM DS 800-160 MG TAB TRIMETHOPRIM-SULFAMETHOXAZOLE Inactive ZOLOFT 50 MG TAB 1 po qd ZOLOFT 50 MG TAB 3129 41 SERTRALINE HCL Inactive BENADRYL 25 MG CAP 1 po q8hr PRN Congestion BENADRYL 25 MG CAP 4826664 DIPHENHYDRAMINE HCL Inactive 28-0.8 MG TABS Take one by mouth daily 09/20 28-0.8 MG TABS VIT-FE FUMARATE-FA Inactive HYDROCODONE-ACETAMINOPHEN 5-325 MG TABS 1 po q 6hr PRN Pain 2010 HYDROCODONE-ACETAMINOPHEN 5-325 MG TABS 151193 HYDROCODONE-ACETAMINOPHEN Inactive LORATADINE 10 MG TABS 1 tablet by mouth daily LORATADINE 10 MG TABS 155717 LORATADINE Inactive LUIS 3-0.02 MG TABS 1 tablet by mouth daily as directed LUIS 3-0.02 MG TABS DROSPIRENONE-ETHINYL ESTRADIOL Inactive VITAMINS TABS Take one by mouth daily VITAMINS TABS MV & MIN W/FE-FA TABS Inactive PERCOCET 5-325 MG TABS 1 tablet by mouth every 6 hours as ne eded for pain PERCOCET 5-325 MG TABS 0146596 OXYCODONE-ACETAMIN OPHEN Inactive PREDNISONE 20 MG TAB 2 tabs daily for 4 days, 1 t ab daily for 4 days, 1/2 tab daily for 4 days PREDNISONE 20 MG TAB 150824 PREDNISON E Inactive CLINDAMYCIN HCL 300 MG CAPS 1 po q6hr x 7 days CLINDAMYCIN HCL 300 MG CAPS 327279 CLINDAMYCIN HCL Inactive HYDROCODONE-ACETAMINOPHEN 7.5-325 MG TABS 1 po QID PRN Pain 2011 HYDROCODONE-ACETAMINOPHEN 7.5-325 MG TABS 578462 HYDROCODONE-ACETAMINOPHEN Inactive SPIRONOLACTONE 25 MG TAB 1 tablet by mouth daily 01/22 SPIRONOLACTONE 25 MG TAB 479215 SPIRONOLACTONE Inactive IBUPROFEN 600 MG TAB 1 po q6-8hr PRN IBUPROFEN 600 MG TAB 935751 IBUPROFEN Inactive FERROUS SULFATE 325 (65 FE) MG TABS 1 tablet by mouth twice yung y FERROUS SULFATE 325 (65 FE) MG TABS 101610 FERROUS SULF ATE Inactive HYDROCODONE-ACETAMINOPHEN 7.5-500 MG TABS 1-2 every 4 hours as needed HYDROCODONE-ACETAMINOPHEN 7.5-500 MG TABS 150068 HYDROCODONE-ACETAMINOPHEN Inactive GENERESS FE 0.8-25 MG-MCG CHEW [...] PRN Pain 2011 HYDROCODONE-ACETAMINOPHEN 5-325 MG TABS 740727 HYDROCODONE-ACETAMINOPHEN Inactive DOXYCYCLINE HYCLATE 100 MG CAPS Take one (1) tablet by mouth twice a day DOXYCYCLINE HYCLATE 100 MG CAPS 913073 DOXYCYCLINE HYCLATE Inactive PENICILLIN V POTASSIUM 500 MG TAB 1 four times a day 2 PENICILLIN V POTASSIUM 500 MG TAB 945336 PENICILLIN V POTASSIUM Cecil ctive PRISTIQ 50 MG [id number] 1 po qd PRISTIQ 50 MG [id number] DESVENLAFAXINE SUCCINATE Inactive TYLENOL/CODEINE #3 300-30 MG TAB 1-2 po q6hr PRN Pain TYLENOL/CODEINE #3 300-30 MG TAB 475507 ACETAMINOPHEN-CODEINE Inact krishna CEPHALEXIN 500 MG TABS Take one by mouth four times daily, morning, noon, early evening and bedtime. CEPHALEXIN 500 MG TABS 808506 CEPHALEXIN Inactive LORTAB 5 5-500 MG TABS 1/2 to 1 tablet by mouth go ry 6 hours as needed for pain LORTAB 5 5-500 MG TABS HYDROCODONE-A CETAMINOPHEN Inactive AMITRIPTYLINE HCL 25 MG TAB 1 tab by mouth daily 60 minutes before bedtime AMITRIPTYLINE HCL 25 MG TAB 815466 AMITRIPTYLINE HCL Inactive AMOXICILLIN 500 MG TABS 2 tabs PO bid x 10 d 7 AMOXICILLIN 500 MG TABS 659436 AMOXICILLIN Inactive IMPLANON 68 MG IMPL IMPLANTED IN LEFT ARM IMPLANON 68 MG IMPL ETONOGESTREL Inactive HYDROCODONE-ACETAMINOPHEN 5-325 MG TABS 1 PO tid PRN pain 5 HYDROCODONE-ACETAMINOPHEN 5-325 MG TABS 104693 HYDROCODONE-ACETAMIN OPHEN Inactive BACTRIM DS 800-160 MG TAB 1 tab by mouth twice daily 2 BACTRIM DS 800-160 MG TAB TRIMETHOPRIM-SULFAMETHOXAZOLE Inac tive CEPHALEXIN 500 MG CAPS 1 PO bid x 7 days CEPHALEXIN 500 MG CAPS 948956 CEPHALEXIN Inactive HYDROCODONE-ACETAMINOPHEN 5-325 MG TABS 1 tab by mouth every 6 hours as needed HYDROCODONE-ACETAMINOPHEN 5-325 MG TABS 814058 HYDROCODONE-ACETAMINOPHEN Inactive PROMETHAZINE-CODEINE 6.25-10 MG/5ML SYRP 1 tsp every 6 hrs prn c ough PROMETHAZINE-CODEINE 6.25-10 MG/5ML SYRP 628284 PROMETH AZINE-CODEINE Inactive IBUPROFEN 800 MG TAB 1 pill three times daily as needed for pain IBUPROFEN 800 MG TAB 334070 IBUPROFEN Inactive KEFLEX 500 MG CAP 1 tab po tid KEFLEX 500 MG CAP 205704 CEPHALEXIN Inactive HYDROCODONE-ACETAMINOPHEN 7.5-325 MG TABS 1 four times a day as needed for pain HYDROCODONE-ACETAMINOPHEN 7.5-325 MG TABS 746648 HYDROCODONE-ACETAMINOPHEN Inactive BACTRIM DS 800-160 MG TABS by mouth twice a day 11/05 BACTRIM DS 800-160 MG TABS SULFAMETHOXAZOLE-TRIMETHOPRIM Inactive AMOXICILLIN 875 MG TABS 1 tab by mouth twice daily 201 07/18/07 AMOXICILLIN 875 MG TABS 889379 AMOXICILLIN Inactive KEFLEX 500 MG CAP 1 po tid x 10 days KEFLEX 500 MG CAP 508490 CEPHALEXIN Inactive AMOXICILLIN 875 MG TABS 1 tab by mouth twice daily 201 07/19/27 AMOXICILLIN 875 MG TABS 044758 AMOXICILLIN Inactive AMOXICILLIN 875 MG TABS 1 tab by mouth twice daily 08/09/13 AMOXICILLIN 875 MG TABS 043890 AMOXICILLIN Inactive CIPRO 500 MG TAB 1 tablet by mouth twice daily CIPRO 500 MG TAB 231864 CIPROFLOXACIN HCL Inactive BACTRIM DS 800-160 MG TAB 1 tab by mouth twice daily 2 BACTRIM DS 800-160 MG TAB TRIMETHOPRIM-SULFAMETHOXAZOLE Inac tive LEVAQUIN 500 MG TABS 1 PO q day x 7 days LEVAQUIN 500 MG TABS 551904 LEVOFLOXACIN Inactive Advance Directives Directive Description Start Date PERMISSION TO SHARE Immunizations Vaccine Administration Date Value Standard Alf cription Seasonal influenza vaccine, injectable, containing preservative, for > 3 years old (Afluria, FluLaval, Fluzone, Fluvirin, Fluarix, Agriflu(>= 18 yo)) Fluzone (>3 yrs.) [[id number]] Influenza, seasonal, inject able Seasonal influenza vaccine, injectable, preservative free, for > 3 years old (Afluria, FluLaval, Fluzone, Fluvirin, Fluarix, Agriflu(>= 18 yo)) Fluzone preservative free (>3 yrs.) [[id number]] Influenza, seasonal, injectable, preservative free Seasonal influenza vaccine, injectable, containing preservative, for > 3 years old (Afluria, FluLaval, Fluzone, Fluvirin, Fluarix, Agriflu(>= 18 yo)) Fluzone (>3 yrs.) [[id number]] Influenza, seasonal, inject able Seasonal influenza vaccine, injectable, containing preservative, for > 3 years old (Afluria, FluLaval, Fluzone, Fluvirin, Fluarix, Agriflu(>= 18 yo)) Fluzone (>3 yrs.) [[id number]] Influenza, seasonal, inject able dT (Diphtheria and [...] mg/dL Chart Maintenance: Outside labs entered on [employer] - Hematology leukocyte count, blood 8.3 10*3/mm3 erythrocyte (RBC) count 5.2 10*6/mm3 hemoglobin, blood 14.2 g/dL hematocrit, blood 42.6 % mean corpuscular volume, RBC 82.4 fL mean corpuscular hemoglobin, RBC 27.5 pg red blood cell distribution width 12.9 % platelet count 316 10*3/mm3 Lab Report: CBC W/DIFF, Comp. Metabolic Panel, Thyroid Stimulating Hormo ... - Chemistry sodium, serum 140 mmol/L 242-063 8490/02/24 potassium, serum 4.3 mmol/L 3.5-5.2 chloride, serum [...] 4.3-6.0 Lab Report: T3, TOTAL, INSULIN - [employer] ry triiodothyronine, serum 78 ng/dL 76-181 Lab [...] mg/dL Encounters Code Encounter Date Provider Facility CPT-81358 Level 3 Est. Patient 14:11:58 CDT Kalpesh goins MD [facility] CPT-19857 Level 3 Est. Patient 16:50:00 CDT Michelle MERCADO [facility] CPT-10790 Level 3 Est. Patient 17:11:32 MANAGER CRISIS Brandie bates MD PhD [facility] CPT-60992 Level 3 Est. Patient 16:31:47 MANAGER CRISIS Shola MCGILL [facility] CPT-59276 Level 3 Est. Patient 17:51:10 MANAGER CRISIS Abhinav Galvan MD [facility] CPT-30385 Level 4 Est. Patient 12:54:56 MANAGER CRISIS Kalpesh goins MD [facility] CPT-22525 Level 4 Est. Patient 12:53:56 MANAGER CRISIS Kalpesh goins MD [facility] CPT-20260 Level 3 Est. Patient 17:56:58 CDT Shola MCGILL [facility] CPT-95767 Level 3 Est. Patient 14:26:20 CDT Janak butcher [facility] CPT-58512 Level 3 Est. Patient 09:38:41 CDT Shola Wright [facility] CPT-38371 Level 3 Est. Patient 14:45:26 CDT Edilberto tiwari [facility] CPT-93546 Level 3 Est. Patient 10:51:33 CDT Hira muniz [facility] CPT-73204 Level 3 Est. Patient 11:57:55 MANAGER CRISIS Shola Thao Adriana [facility] CPT-31976 Level 3 Est. Patient 09:53:33 MANAGER CRISIS Edilberto tiwari [facility] CPT-84227 Level 3 Est. Patient 14:42:54 MANAGER CRISIS Abhinav Galvan MD [facility] CPT-39592 Level 3 Est. Patient 15:10:02 CDT Janak butcher [facility] CPT-84151 Level 3 Est. Patient 15:20:20 CDT Theo dennis MD [facility] CPT-07162 Level 2 Est. Patient 14:08:57 CDT Kalpesh goins MD [facility] CPT-73684 Level 3 Est. Patient 13:56:19 CDT Abdirahman Rios MD [facility] CPT-94338 Level 3 Est. Patient 13:59:37 CDT Abdirahman Rios MD [facility] CPT-97540 Level 2 Est. Patient 14:44:59 CDT Kalpesh goins MD [facility]-65162 Level 3 Est. Patient 06:06:23 CDT Edilberto tiwari [facility] CPT-32478 Level 3 Est. Patient 15:23:54 CDT Abdirahman Rios MD [facility] CPT-28381 Level 3 Est. Patient 15:43:49 CDT Abdirahman Rios MD [facility] CPT-53094 Level 3 Est. Patient 12:46:47 MANAGER CRISIS Abdirahman Rios MD [facility] CPT-72090 Level 3 Est. Patient 08:13:35 MANAGER CRISIS Abdirahman Rios MD [facility] CPT-53357 Level 2 Est. Patient 09:36:42 MANAGER CRISIS Abdirahman Rios MD [facility] CPT-59593 Level 3 Est. Patient 10:56:43 CDT Abdirahman Rios MD [facility] CPT-11141 Level 3 Est. Patient 18:24:52 CDT Abdirahman Rios MD [facility] CPT-11944 Level 3 Est. Patient 13:27:22 CDT Abdirahman Rios MD [facility] Procedures Code Procedure Name Date Entry Date Standard Desc ription CPT-OV Office Visit 15:34:48 CDT CPT-44033 Postop F/U Visit 14:50:12 CDT CPT-24005 Postop F/U Visit 14:41:10 CDT CPT-90048 Venipuncture Draw Fee 11:38:04 MANAGER CRISIS CPT-16585 Postop F/U Visit 19:02:59 MANAGER CRISIS CPT-34401 Postop F/U Visit 12:04:54 MANAGER CRISIS CPT-68902 Administration single or combination vac cine inc oral 15:56:43 CDT CPT-15728 Influenza split virus > age 3 15:56:43 CDT CPT-54289 Hand comp min 3V 14:25:19 CDT CPT-30840 Postop F/U Visit 21:40:51 CDT CPT-08697 Postop F/U Visit 10:58:43 CDT CPT-11394 Administration single or combination vac cine inc oral 12:33:54 MANAGER CRISIS CPT-88367 Influenza Preservative Free split virus >age 3 12:33:54 MANAGER CRISIS CPT-31994 Administration single or combination vac cine inc oral 09:30:51 CDT CPT-40774 Influenza split virus > age 3 09:30:51 CDT CPT-56640 Postop F/U Visit 15:14:53 CDT CPT-65353 Postop F/U Visit 13:50:14 CDT CPT-95248 Postop F/U Visit 13:34:52 CDT CPT-OV Office Visit 16:55:03 CDT CPT-32001 [place] of cervix w bx ECC 13:32:50 CDT 10/19 CPT-J1885 Toradol 60 mg (Ketorolac) 15:31:59 CDT 2011 CPT-J1885 Toradol 60 mg (Ketorolac) 15:23:54 CDT 2011 CPT-23402 Visit 11:34:37 MANAGER CRISIS CPT-61461 Visit 10:52:39 MANAGER CRISIS CPT-74591 Visit 10:12:02 MANAGER CRISIS CPT-70059 Visit 11:22:43 MANAGER CRISIS CPT-44776 Visit 11:24:12 MANAGER CRISIS CPT-48050 Visit 10:47:05 MANAGER CRISIS CPT-OV Office Visit 10:26:16 MANAGER CRISIS CPT-OV Office Visit 15:34:31 MANAGER CRISIS CPT-28513 Visit 10:42:08 MANAGER CRISIS CPT-93338 Visit 10:52:45 MANAGER CRISIS CPT-000 Give Appropriate Flu Vaccine 16:56:41 CDT 2 CPT-81250 Administration single or combination vac cine inc oral 10:33:21 CDT CPT-13297 Influenza split virus > age 3 10:33:21 CDT CPT-44704 Visit 13:23:09 CDT CPT-50713 Visit 18:24:52 CDT CPT-64166 Sono OB comp > 14 weeks 12:07:49 CDT 04/07
--- OUTSIDE RECORDS SUMMARY | 2020-01-18 17:16 | XMS REPORT | Clinical Summary ---
Author Author Admin, Jeri Rashid Organization [facility] Address Unknown Phone Allergies, Adverse [...] and abscess of trunk 682.2 Active 2013 Abdirahmna Rios MD Cellulitis and abscess of trunk [...] Patient Instruction BACTRIM DS 800-160 MG TABS 1 po BID x 7 days 5 SULFAMETHOXAZOLE-TRIMETHOPRIM 32941991026 Active Abdirahman Rios MD Active ENDOCET 10-325 MG TABS 1 q 6 hr prn OXYCODONE-ACETAMINOPHEN 01743790269 No Longer Active Abdirahman Rios MD Active IBUPROFEN 800 MG TABS 1 tid prn IBUPROFEN 348410 36368 No Longer Active Abdirahman Rios MD Active BACTRIM DS 800-160 MG TABS by mouth twice a day 11/05 SULFAMETHOXAZOLE-TRIMETHOPRIM 27333089912 No Longer Active Good Julian MD Active HYDROCODONE-ACETAMINOPHEN 7.5-325 MG TABS 1 four times a day as needed for pain HYDROCODONE-ACETAMINOPHEN 24640173318 No Longer Activ crystal Julian MD Active KEFLEX 500 MG CAP 1 tab po tid CEPHALEXIN 834830 41228 No Longer Active Jillsiri Moser APRN Active IBUPROFEN 800 MG TAB 1 pill three times daily as needed for pain IBUPROFEN 25490101931 No Longer Active Kalpesh Dong MD Active PROMETHAZINE-CODEINE 6.25-10 MG/5ML SYRP 1 tsp every 6 hrs prn c ough PROMETHAZINE-CODEINE 83165948487 No Longer Active Kalpesh Carr Active ALPRAZOLAM 0.5 MG TABS 1 PO bid PRN ALPRAZOLAM 433875 01515 Active Shola MCGILL Active HYDROCODONE-ACETAMINOPHEN 5-325 MG TABS 1 tab by mouth every 6 hours as needed HYDROCODONE-ACETAMINOPHEN 96950777195 No Longer Activ e Shola MCGILL Active CEPHALEXIN 500 MG CAPS 1 PO bid x 7 days CEPHAL EXIN 66893955102 No Longer Active Shola MCGILL Active BACTRIM DS 800-160 MG TAB 1 tab by mouth twice daily 2 TRIMETHOPRIM-SULFAMETHOXAZOLE 44414836980 No Longer Active Kalpesh Dong MD Active HYDROCODONE-ACETAMINOPHEN 5-325 MG TABS 1 PO tid PRN pain 5 HYDROCODONE-ACETAMINOPHEN 34243701654 No Longer Active Abhinav Galvan MD Active IMPLANON 68 MG IMPL IMPLANTED IN LEFT ARM ETONO GESTREL 04101516649 No Longer Active Jillsiri Moser BOARDING SPECIALIST Active AMOXICILLIN 500 MG TABS 2 tabs PO bid x 10 d AM OXICILLIN 28458661325 No Longer Active Kalpesh Dong MD Active LEVAQUIN 500 MG TABS 1 PO q day x 7 days LEVOFL OXACIN 94306451474 No Longer Active Shola MCGILL Active PROAIR HFA 108 (90 BASE) MCG/ACT AERS 2 puff q 4-6 hrs PRN ALBUTEROL SULFATE 41544715447 Active Shola MCGILL Acti ve FIORICET 50-325-40 MG TABS 2 PO q 8 hrs PRN FOSTER [id number] 44129784539 Active Abdirahman Rios MD Active AMITRIPTYLINE HCL 25 MG TAB 1 tab by mouth daily 60 minutes before bedtime AMITRIPTYLINE HCL 41873856561 No Longer Active Shola MCGILL Active LORTAB 5 5-500 MG TABS 1/2 to 1 tablet by mouth go ry 6 hours as needed for pain HYDROCODONE-ACETAMINOPHEN 44301850181 No Longer Active Shola MCGILL Active CEPHALEXIN 500 MG TABS Take one by mouth four times daily, morning, noon, early evening and bedtime. CEPHALEXIN 44276441095 No Long er Active Hira Moser APRN Active TYLENOL/CODEINE #3 300-30 MG TAB 1-2 po q6hr PRN Pain ACETAMINOPHEN-CODEINE 83255340437 No Longer Active Edilberto Marino DO Active PRISTIQ 50 MG [id number] 1 po qd DESVENLAFAXI NE SUCCINATE 88037157996 No Longer Active Edilberto Marino DO Active PENICILLIN V POTASSIUM 500 MG TAB 1 four times a day 2 PENICILLIN V POTASSIUM 57511471313 No Longer Active Edilberto Marino DO Active DOXYCYCLINE HYCLATE 100 MG CAPS Take one (1) tablet by mouth twice a day DOXYCYCLINE HYCLATE 66740167937 No Longer Active Ronnie Galvan MD Active HYDROCODONE-ACETAMINOPHEN 5-325 MG TABS 1 po q 6hr PRN Pain 2011 HYDROCODONE-ACETAMINOPHEN 71891994774 No Longer Active Jerson Perez RN Active BACTRIM DS 800-160 MG TAB 1 tab by mouth twice daily 2 TRIMETHOPRIM-SULFAMETHOXAZOLE 00768106475 No Longer Active Kalpesh Dong MD Active LORTAB 5 5-500 MG TABS 1/2 to 1 tablet by mouth go ry 4 hours as needed for pain HYDROCODONE-ACETAMINOPHEN 77616042549 No Longer Active Kalpesh Dong MD Active GENERESS FE 0.8-25 MG-MCG CHEW Take one by mouth daily NORETHIN-ETH ESTRADIOL-FE 90576189845 No Longer Active Kalpesh Dong MD Active HYDROCODONE-ACETAMINOPHEN 7.5-500 MG TABS 1-2 every 4 hours as needed HYDROCODONE-ACETAMINOPHEN 38815516613 No Longer Activ e Kalpesh Dong MD Active FERROUS SULFATE 325 (65 FE) MG TABS 1 tablet by mouth twice yung y FERROUS SULFATE 38373791116 No Longer Active Kalpesh Dong MD Active IBUPROFEN 600 MG TAB 1 po q6-8hr PRN IBUPROFEN 61986140699 No Longer Active Kalpesh Dong MD Active SPIRONOLACTONE 25 MG TAB 1 tablet by mouth daily 01/22 SPIRONOLACTONE 87755097826 No Longer Active Kalpesh Dong MD Acti ve HYDROCODONE-ACETAMINOPHEN 7.5-325 MG TABS 1 po QID PRN Pain 2011 HYDROCODONE-ACETAMINOPHEN 04668700133 No Longer Active Kalpesh Dong MD Active CLINDAMYCIN HCL 300 MG CAPS 1 po q6hr x 7 days CLINDAMYCIN HCL 16666953424 No Longer Active Edilberto Marino DO Active PREDNISONE 20 MG TAB 2 tabs daily for 4 days, 1 t ab daily for 4 days, 1/2 tab daily for 4 days PREDNISONE 35324447432 No Longer Active Edilberto Marino DO Active PERCOCET 5-325 MG TABS 1 tablet by mouth every 6 hours as ne eded for pain OXYCODONE-ACETAMINOPHEN 96541229887 No Longer Active Abdirahman Rios MD Active VITAMINS TABS Take one by mouth daily MV & MIN W/FE-FA TABS 24488238218 No Longer Active Abdirahman Rios MD Active LUIS 3-0.02 MG TABS 1 tablet by mouth daily as directed DROSPIRENONE-ETHINYL ESTRADIOL 57622248568 No Longer Active Abdirahman Rios MD Active LORATADINE 10 MG TABS 1 tablet by mouth daily L ORATADINE 75495287312 No Longer Active Kalpesh Dong MD Active HYDROCODONE-ACETAMINOPHEN 5-325 MG TABS 1 po q 6hr PRN Pain 2010 HYDROCODONE-ACETAMINOPHEN 02200139678 No Longer Active Edilberto Marino DO Active BACTRIM DS 800-160 MG TAB 1 tab by mouth twice daily 2 TRIMETHOPRIM-SULFAMETHOXAZOLE 39742113401 No Longer Active Abdirahman Riso MD Active 28-0.8 MG TABS Take one by mouth daily 09/20 VIT-FE FUMARATE-FA 76029436335 No Longer Active Abdirahman Rios MD Active CIPRO 500 MG TAB 1 tablet by mouth twice daily CIPROFLOXACIN HCL 68588974655 No Longer Active Abdirahman Rios MD Active BENADRYL 25 MG CAP 1 po q8hr PRN Congestion DIPHENHYDRAMINE HCL 36854671812 No Longer Active Abdirahman Rios MD Active ZOLOFT 50 MG TAB 1 po qd SERTRALINE HCL 039782 81372 No Longer Active Abdirahman Rios MD Active AMOXICILLIN 875 MG TABS 1 tab by mouth twice daily 201 08/09/13 AMOXICILLIN 58425358809 No Longer Active Abdirahman Rios MD Activ e AMOXICILLIN 875 MG TABS 1 tab by mouth twice daily 201 07/19/27 AMOXICILLIN 77129651556 No Longer Active Abdirahman Rios MD Activ e BACTRIM DS 800-160 MG TAB 2 tab by mouth twice daily 2 TRIMETHOPRIM-SULFAMETHOXAZOLE 83879800009 No Longer Active Abdirahman Rios MD Active KEFLEX 500 MG CAP 1 po tid x 10 days CEPHALEXIN 92128581121 No Longer Active Abdirahman Rios MD Active AMOXICILLIN 875 MG TABS 1 tab by mouth twice daily 201 07/18/07 AMOXICILLIN 74204176800 No Longer Active Abdirahman Rios MD Activ e BACTRIM DS 800-160 MG TAB 2 tab by mouth twice daily 2 BACTRIM DS 800-160 MG TAB TRIMETHOPRIM-SULFAMETHOXAZOLE Inactive ZOLOFT 50 MG TAB 1 po qd ZOLOFT 50 MG TAB 3129 41 SERTRALINE HCL Inactive BENADRYL 25 MG CAP 1 po q8hr PRN Congestion BENADRYL 25 MG CAP 9302865 DIPHENHYDRAMINE HCL Inactive 28-0.8 MG TABS Take one by mouth daily 09/20 28-0.8 MG TABS VIT-FE FUMARATE-FA Inactive HYDROCODONE-ACETAMINOPHEN 5-325 MG TABS 1 po q 6hr PRN Pain 2010 HYDROCODONE-ACETAMINOPHEN 5-325 MG TABS 432099 HYDROCODONE-ACETAMINOPHEN Inactive LORATADINE 10 MG TABS 1 tablet by mouth daily LORATADINE 10 MG TABS 109231 LORATADINE Inactive LUIS 3-0.02 MG TABS 1 tablet by mouth daily as directed LUIS 3-0.02 MG TABS DROSPIRENONE-ETHINYL ESTRADIOL Inactive VITAMINS TABS Take one by mouth daily VITAMINS TABS MV & MIN W/FE-FA TABS Inactive PERCOCET 5-325 MG TABS 1 tablet by mouth every 6 hours as ne eded for pain PERCOCET 5-325 MG TABS 3851779 OXYCODONE-ACETAMIN OPHEN Inactive PREDNISONE 20 MG TAB 2 tabs daily for 4 days, 1 t ab daily for 4 days, 1/2 tab daily for 4 days PREDNISONE 20 MG TAB 489156 PREDNISON E Inactive CLINDAMYCIN HCL 300 MG CAPS 1 po q6hr x 7 days CLINDAMYCIN HCL 300 MG CAPS 203798 CLINDAMYCIN HCL Inactive HYDROCODONE-ACETAMINOPHEN 7.5-325 MG TABS 1 po QID PRN Pain 2011 HYDROCODONE-ACETAMINOPHEN 7.5-325 MG TABS 134071 HYDROCODONE-ACETAMINOPHEN Inactive SPIRONOLACTONE 25 MG TAB 1 tablet by mouth daily 01/22 SPIRONOLACTONE 25 MG TAB 159151 SPIRONOLACTONE Inactive IBUPROFEN 600 MG TAB 1 po q6-8hr PRN IBUPROFEN 600 MG TAB 644169 IBUPROFEN Inactive FERROUS SULFATE 325 (65 FE) MG TABS 1 tablet by mouth twice yung y FERROUS SULFATE 325 (65 FE) MG TABS 884026 FERROUS SULF ATE Inactive HYDROCODONE-ACETAMINOPHEN 7.5-500 MG [...] PRN Pain 2011 HYDROCODONE-ACETAMINOPHEN 5-325 MG TABS 172851 HYDROCODONE-ACETAMINOPHEN Inactive DOXYCYCLINE HYCLATE 100 MG CAPS Take one (1) tablet by mouth twice a day DOXYCYCLINE HYCLATE 100 MG CAPS 159089 DOXYCYCLINE HYCLATE Inactive PENICILLIN V POTASSIUM 500 MG TAB 1 four times a day 2 PENICILLIN V POTASSIUM 500 MG TAB 781559 PENICILLIN V POTASSIUM Siri ctive PRISTIQ 50 MG [id number] 1 po qd PRISTIQ 50 MG [id number] DESVENLAFAXINE SUCCINATE Inactive TYLENOL/CODEINE #3 300-30 MG TAB 1-2 po q6hr PRN Pain TYLENOL/CODEINE #3 300-30 MG TAB 172790 ACETAMINOPHEN-CODEINE Inact krishna CEPHALEXIN 500 MG TABS Take one by mouth four times daily, morning, noon, early evening and bedtime. CEPHALEXIN 500 MG TABS 633655 CEPHALEXIN Inactive LORTAB 5 5-500 MG TABS 1/2 to 1 tablet by mouth go ry 6 hours as needed for pain LORTAB 5 5-500 MG TABS HYDROCODONE-A CETAMINOPHEN Inactive AMITRIPTYLINE HCL 25 MG TAB 1 tab by mouth daily 60 minutes before bedtime AMITRIPTYLINE HCL 25 MG TAB 880093 AMITRIPTYLINE HCL Inactive AMOXICILLIN 500 MG TABS 2 tabs PO bid x 10 d 7 AMOXICILLIN 500 MG TABS 504584 AMOXICILLIN Inactive IMPLANON 68 MG IMPL IMPLANTED IN LEFT ARM IMPLANON 68 MG IMPL ETONOGESTREL Inactive HYDROCODONE-ACETAMINOPHEN 5-325 MG TABS 1 PO tid PRN pain 5 HYDROCODONE-ACETAMINOPHEN 5-325 MG TABS 163205 HYDROCODONE-ACETAMIN OPHEN Inactive BACTRIM DS 800-160 MG TAB 1 tab by mouth twice daily 2 BACTRIM DS 800-160 MG TAB TRIMETHOPRIM-SULFAMETHOXAZOLE Inac tive CEPHALEXIN 500 MG CAPS 1 PO bid x 7 days CEPHALEXIN 500 MG CAPS 300470 CEPHALEXIN Inactive HYDROCODONE-ACETAMINOPHEN 5-325 MG TABS 1 tab by mouth every 6 hours as needed HYDROCODONE-ACETAMINOPHEN 5-325 MG TABS 175407 HYDROCODONE-ACETAMINOPHEN Inactive PROMETHAZINE-CODEINE 6.25-10 MG/5ML SYRP 1 tsp every 6 hrs prn c ough PROMETHAZINE-CODEINE 6.25-10 MG/5ML SYRP 909706 PROMETH AZINE-CODEINE Inactive IBUPROFEN 800 MG TAB 1 pill three times daily as needed for pain IBUPROFEN 800 MG TAB 311332 IBUPROFEN Inactive KEFLEX 500 MG CAP 1 tab po tid KEFLEX 500 MG CAP 693896 CEPHALEXIN Inactive HYDROCODONE-ACETAMINOPHEN 7.5-325 MG TABS 1 four times a day as needed for pain HYDROCODONE-ACETAMINOPHEN 7.5-325 MG TABS 179248 HYDROCODONE-ACETAMINOPHEN Inactive BACTRIM DS 800-160 MG TABS by mouth twice a day 11/05 BACTRIM DS 800-160 MG TABS SULFAMETHOXAZOLE-TRIMETHOPRIM Inactive IBUPROFEN 800 MG TABS 1 tid prn IBUPROFEN 800 MG TABS 796462 IBUPROFEN Inactive ENDOCET 10-325 MG TABS 1 q 6 hr prn ENDOC ET 10-325 MG TABS 7412346 OXYCODONE-ACETAMINOPHEN Inactive AMOXICILLIN 875 MG TABS 1 tab by mouth twice daily 201 07/18/07 AMOXICILLIN 875 MG TABS 589614 AMOXICILLIN Inactive KEFLEX 500 MG CAP 1 po tid x 10 days KEFLEX 500 MG CAP 538275 CEPHALEXIN Inactive AMOXICILLIN 875 MG TABS 1 tab by mouth twice daily 201 07/19/27 AMOXICILLIN 875 MG TABS 131747 AMOXICILLIN Inactive AMOXICILLIN 875 MG TABS 1 tab by mouth twice daily 201 08/09/13 AMOXICILLIN 875 MG TABS 335672 AMOXICILLIN Inactive CIPRO 500 MG TAB 1 tablet by mouth twice daily CIPRO 500 MG TAB 467642 CIPROFLOXACIN HCL Inactive BACTRIM DS 800-160 MG TAB 1 tab by mouth twice daily 2 BACTRIM DS 800-160 MG TAB TRIMETHOPRIM-SULFAMETHOXAZOLE Inac tive LEVAQUIN 500 MG TABS 1 PO q day x 7 days LEVAQUIN 500 MG TABS 452787 LEVOFLOXACIN Inactive Advance Directives Directive Description Start Date PERMISSION TO SHARE Immunizations Vaccine Administration Date Value Standard Alf cription Seasonal influenza vaccine, injectable, containing preservative, for > 3 years old (Afluria, FluLaval, Fluzone, Fluvirin, Fluarix, Agriflu(>= 18 yo)) Fluzone (>3 yrs.) [[id number]] Influenza, seasonal, inject able Seasonal influenza vaccine, injectable, preservative free, for > 3 years old (Afluria, FluLaval, Fluzone, Fluvirin, Fluarix, Agriflu(>= 18 yo)) Fluzone preservative free (>3 yrs.) [[id number]] Influenza, seasonal, injectable, preservative free Seasonal influenza vaccine, injectable, containing preservative, for > 3 years old (Afluria, FluLaval, Fluzone, Fluvirin, Fluarix, Agriflu(>= 18 yo)) Fluzone (>3 yrs.) [[id number]] Influenza, seasonal, inject able Seasonal influenza vaccine, injectable, containing preservative, for > 3 years old (Afluria, FluLaval, Fluzone, Fluvirin, Fluarix, Agriflu(>= 18 yo)) Fluzone (>3 yrs.) [[id number]] Influenza, seasonal, inject able dT (Diphtheria and [...] ... - Chemistry sodium, serum 140 mmol/L 715-904 0007/02/24 potassium, serum 4.3 mmol/L 3.5-5.2 chloride, serum [...] 4.3-6.0 Lab Report: T3, TOTAL, INSULIN - Fly Setter ry triiodothyronine (T3), serum 78 ng/dL 76-181 [...] mg/dL Encounters Code Encounter Date Provider Facility CPT-67225 Level 3 Est. Patient 14:19:37 CDT Abdirahman Rios MD [facility] CPT-98917 Level 3 Est. Patient 14:11:58 CDT Kalpesh goins MD [facility] CPT-22859 Level 3 Est. Patient 16:50:00 [facility] Level 3 Est. Patient 17:11:32 STAND UP COMEDIAN Brandie bates MD PhD [facility] CPT-21938 Level 3 Est. Patient 16:31:47 STAND UP COMEDIAN Shola Wright [facility] CPT-31025 Level 3 Est. Patient 17:51:10 STAND UP COMEDIAN Abhinav Galvan MD [facility] CPT-34552 Level 4 Est. Patient 12:54:56 STAND UP COMEDIAN Kalpesh goins MD [facility] CPT-13462 Level 4 Est. Patient 12:53:56 STAND UP COMEDIAN Kalpesh goins MD [facility] CPT-64127 Level 3 Est. Patient 17:56:58 CDT Shola MCGILL [facility] CPT-08077 Level 3 Est. Patient 14:26:20 CDT Janak butcher [facility] CPT-26063 Level 3 Est. Patient 09:38:41 CDT Shola Wright [facility] CPT-16289 Level 3 Est. Patient 14:45:26 CDT Edilberto tiwari [facility] CPT-81966 Level 3 Est. Patient 10:51:33 [facility] Level 3 Est. Patient 11:57:55 STAND UP COMEDIAN Shola Wright [facility] CPT-76324 Level 3 Est. Patient 09:53:33 STAND UP COMEDIAN Edilberto tiwari [facility] CPT-07276 Level 3 Est. Patient 14:42:54 STAND UP COMEDIAN Abhinav Galvan MD [facility]-79415 Level 3 Est. Patient 15:10:02 CDT Janak Stevenamira butcher [facility] CPT-44660 Level 3 Est. Patient 15:20:20 CDT Theo dennis MD [facility] CPT-75289 Level 2 Est. Patient 14:08:57 CDT Kalpesh goins MD -97627 Level 3 Est. Patient 13:56:19 CDT Abdirahman Rios MD [facility] CPT-32505 Level 3 Est. Patient 13:59:37 CDT Abdirahman Rios MD [facility] CPT-82383 Level 2 Est. Patient 14:44:59 CDT Kalpesh goins MD [facility] CPT-35606 Level 3 Est. Patient 06:06:23 CDT Edilberto tiwari [facility] CPT-43003 Level 3 Est. Patient 15:23:54 CDT Abdirahman Rios MD [facility] CPT-98216 Level 3 Est. Patient 15:43:49 CDT Abdirahman Rios MD [facility] CPT-89266 Level 3 Est. Patient 12:46:47 STAND UP COMEDIAN Abdirahman Rios MD [facility] CPT-44923 Level 3 Est. Patient 08:13:35 STAND UP COMEDIAN Abdirahman Rios MD [facility] CPT-49658 Level 2 Est. Patient 09:36:42 STAND UP COMEDIAN Abdirahman Rios MD [facility] CPT-46138 Level 3 Est. Patient 10:56:43 CDT Abdirahman Rios MD [facility] CPT-50902 Level 3 Est. Patient 18:24:52 CDT Abdirahman Rios MD [facility] CPT-16099 Level 3 Est. Patient 13:27:22 CDT Abdirahman Rios MD [facility] Procedures Code Procedure Name Date Entry Date Standard Desc ription CPT-OV Office Visit 15:34:48 CDT CPT-65994 Postop F/U Visit 14:50:12 CDT CPT-12015 Postop F/U Visit 14:41:10 CDT CPT-63942 Venipuncture Draw Fee 11:38:04 STAND UP COMEDIAN CPT-32819 Postop F/U Visit 19:02:59 STAND UP COMEDIAN CPT-56423 Postop F/U Visit 12:04:54 STAND UP COMEDIAN CPT-14015 Administration single or combination vac cine inc oral 15:56:43 CDT CPT-75155 Influenza split virus > age 3 15:56:43 CDT CPT-70255 Hand comp min 3V 14:25:19 CDT CPT-98419 Postop F/U Visit 21:40:51 CDT CPT-03708 Postop F/U Visit 10:58:43 CDT CPT-26212 Administration single or combination vac cine inc oral 12:33:54 STAND UP COMEDIAN CPT-50069 Influenza Preservative Free split virus >age 3 12:33:54 STAND UP COMEDIAN CPT-88191 Administration single or combination vac cine inc oral 09:30:51 CDT CPT-50804 Influenza split virus > age 3 09:30:51 CDT CPT-87681 Postop F/U Visit 15:14:53 CDT CPT-57626 Postop F/U Visit 13:50:14 CDT CPT-01629 Postop F/U Visit 13:34:52 CDT CPT-OV Office Visit 16:55:03 CDT CPT-12307 [place] of cervix w bx ECC 13:32:50 CDT 10/19 CPT-J1885 Toradol 60 mg (Ketorolac) 15:31:59 CDT 2011 CPT-J1885 Toradol 60 mg (Ketorolac) 15:23:54 CDT 2011 CPT-18552 Visit 11:34:37 STAND UP COMEDIAN CPT-43329 Visit 10:52:39 STAND UP COMEDIAN CPT-94378 Visit 10:12:02 STAND UP COMEDIAN CPT-03499 Visit 11:22:43 STAND UP COMEDIAN CPT-42002 Visit 11:24:12 STAND UP COMEDIAN CPT-17575 Visit 10:47:05 STAND UP COMEDIAN CPT-OV Office Visit 10:26:16 STAND UP COMEDIAN CPT-OV Office Visit 15:34:31 STAND UP COMEDIAN CPT-87002 Visit 10:42:08 STAND UP COMEDIAN CPT-16633 Visit 10:52:45 STAND UP COMEDIAN CPT-000 Give Appropriate Flu Vaccine 16:56:41 CDT 2 CPT-99496 Administration single or combination vac cine inc oral 10:33:21 CDT CPT-11257 Influenza split virus > age 3 10:33:21 CDT CPT-63298 Visit 13:23:09 CDT CPT-30635 Visit 18:24:52 CDT CPT-63400 Sono OB comp > 14 weeks 12:07:49 CDT 04/07
--- OUTSIDE RECORDS SUMMARY | 2020-01-18 17:17 | XMS REPORT | Clinical Summary ---
Author Author Admin, Jeri Rashid Organization [facility] Address Unknown Phone Allergies, Adverse [...] INFECTION (URI) 465.9 Resolved 20 20/10/29 Good Juilan MD Acute upper respiratory infections of un [...] by mouth twice a day 11/05 SULFAMETHOXAZOLE-TRIMETHOPRIM [id number] No Longer Active Good Julian MD Active IBUPROFEN 800 MG TABS 1 tid prn IBUPROFEN 63872632079 Active Good Julian MD Active ENDOCET 10-325 MG TABS 1 q 6 hr prn OXYCODONE-A CETAMINOPHEN 38110102783 Active Shola MCGILL Active HYDROCODONE-ACETAMINOPHEN 7.5-325 MG TABS 1 four times a day as needed for pain HYDROCODONE-ACETAMINOPHEN 84817382655 No Longer Activ crystal Julian MD Active KEFLEX 500 MG CAP 1 tab po tid CEPHALEXIN 255735 65678 No Longer Active Hira Moser APRN Active IBUPROFEN 800 MG TAB 1 pill three times daily as needed for pain IBUPROFEN 39321726860 No Longer Active Kalpesh Dong MD Active PROMETHAZINE-CODEINE 6.25-10 MG/5ML SYRP 1 tsp every 6 hrs prn c ough PROMETHAZINE-CODEINE 23055686309 No Longer Active Kalpesh Carr Active ALPRAZOLAM 0.5 MG TABS 1 PO bid PRN ALPRAZOLAM 767881 20081 Active Shola MCGILL Active HYDROCODONE-ACETAMINOPHEN 5-325 MG TABS 1 tab by mouth every 6 hours as needed HYDROCODONE-ACETAMINOPHEN 69747340600 No Longer Activ e Shola MCGILL Active CEPHALEXIN 500 MG CAPS 1 PO bid x 7 days CEPHAL EXIN 53529483881 No Longer Active Shola MCGILL Active BACTRIM DS 800-160 MG TAB 1 tab by mouth twice daily 2 TRIMETHOPRIM-SULFAMETHOXAZOLE 24525630752 No Longer Active Kalpesh Dong MD Active HYDROCODONE-ACETAMINOPHEN 5-325 MG TABS 1 PO tid PRN pain 5 HYDROCODONE-ACETAMINOPHEN 05454164203 No Longer Active Abhinav Galvan MD Active IMPLANON 68 MG IMPL IMPLANTED IN LEFT ARM ETONO GESTREL 77927970210 No Longer Active 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 HOOKER OPERATOR Active AMOXICILLIN 500 MG TABS 2 tabs PO bid x 10 d AM OXICILLIN 62731846115 No Longer Active Kalpesh Dong MD Active LEVAQUIN 500 MG TABS 1 PO q day x 7 days LEVOFL OXACIN 35077006163 No Longer Active Shola MCGILL Active PROAIR HFA 108 (90 BASE) MCG/ACT AERS 2 puff q 4-6 hrs PRN ALBUTEROL SULFATE 84342691716 Active Shola MCGILL Acti ve FIORICET 50-325-40 MG TABS 2 PO q 8 hrs PRN FOSTER [id number] 77363188943 Active Abdirahman Rios MD Active AMITRIPTYLINE HCL 25 MG TAB 1 tab by mouth daily 60 minutes before bedtime AMITRIPTYLINE HCL 62929600449 No Longer Active Shola MCGILL Active LORTAB 5 5-500 MG TABS 1/2 to 1 tablet by mouth go ry 6 hours as needed for pain HYDROCODONE-ACETAMINOPHEN 38228281324 No Longer Active Shola MCGILL Active CEPHALEXIN 500 MG TABS Take one by mouth four times daily, morning, noon, early evening and bedtime. CEPHALEXIN 16025753635 No Long er Active Hira Moser HOOKER OPERATOR Active TYLENOL/CODEINE #3 300-30 MG TAB 1-2 po q6hr PRN Pain ACETAMINOPHEN-CODEINE 22430194305 No Longer Active Edilberto Marino DO Active PRISTIQ 50 MG [id number] 1 po qd DESVENLAFAXI NE SUCCINATE 42813438575 No Longer Active Edilberto Marino DO Active PENICILLIN V POTASSIUM 500 MG TAB 1 four times a day 2 PENICILLIN V POTASSIUM 70709773473 No Longer Active Edilberto Marino DO Active DOXYCYCLINE HYCLATE 100 MG CAPS Take one (1) tablet by mouth twice a day DOXYCYCLINE HYCLATE 88880396048 No Longer Active Ronnie Galvan MD Active HYDROCODONE-ACETAMINOPHEN 5-325 MG TABS 1 po q 6hr PRN Pain 2011 HYDROCODONE-ACETAMINOPHEN 92675046592 No Longer Active Patri joan Perez RN Active BACTRIM DS 800-160 MG TAB 1 tab by mouth twice daily 2 TRIMETHOPRIM-SULFAMETHOXAZOLE 82225789042 No Longer Active Kalpesh Dong MD Active LORTAB 5 5-500 MG TABS 1/2 to 1 tablet by mouth go ry 4 hours as needed for pain HYDROCODONE-ACETAMINOPHEN 09714061098 No Longer Active Kalpesh Dong MD Active GENERESS FE 0.8-25 MG-MCG CHEW Take one by mouth daily NORETHIN-ETH ESTRADIOL-FE 93964511096 No Longer Active Kalpesh Dong MD Active HYDROCODONE-ACETAMINOPHEN 7.5-500 MG TABS 1-2 every 4 hours as needed HYDROCODONE-ACETAMINOPHEN 88823227911 No Longer Activ e Kalpesh Dong MD Active FERROUS SULFATE 325 (65 FE) MG TABS 1 tablet by mouth twice yung y FERROUS SULFATE 69226521350 No Longer Active Kalpesh Dong MD Active IBUPROFEN 600 MG TAB 1 po q6-8hr PRN IBUPROFEN 85689395302 No Longer Active Kalpesh Dong MD Active SPIRONOLACTONE 25 MG TAB 1 tablet by mouth daily 01/22 SPIRONOLACTONE 55080335394 No Longer Active Kalpesh Dong MD Acti ve HYDROCODONE-ACETAMINOPHEN 7.5-325 MG TABS 1 po QID PRN Pain 2011 HYDROCODONE-ACETAMINOPHEN 23328114788 No Longer Active Kalpesh Dong MD Active CLINDAMYCIN HCL 300 MG CAPS 1 po q6hr x 7 days CLINDAMYCIN HCL 16127249808 No Longer Active Edilberto Marino DO Active PREDNISONE 20 MG TAB 2 tabs daily for 4 days, 1 t ab daily for 4 days, 1/2 tab daily for 4 days PREDNISONE 94107995539 No Longer Active Edilberto Marino DO Active PERCOCET 5-325 MG TABS 1 tablet by mouth every 6 hours as ne eded for pain OXYCODONE-ACETAMINOPHEN 49176340562 No Longer Active Abdirahman Rios MD Active VITAMINS TABS Take one by mouth daily MV & MIN W/FE-FA TABS 76408329361 No Longer Active Abdirahman Rios MD Active LUIS 3-0.02 MG TABS 1 tablet by mouth daily as directed DROSPIRENONE-ETHINYL ESTRADIOL 33070424186 No Longer Active Abdirahman Rios MD Active LORATADINE 10 MG TABS 1 tablet by mouth daily L ORATADINE 66436518845 No Longer Active Kalpesh Dong MD Active HYDROCODONE-ACETAMINOPHEN 5-325 MG TABS 1 po q 6hr PRN Pain 2010 HYDROCODONE-ACETAMINOPHEN 26134215040 No Longer Active Edilberto Marino DO Active BACTRIM DS 800-160 MG TAB 1 tab by mouth twice daily 2 TRIMETHOPRIM-SULFAMETHOXAZOLE 28213217074 No Longer Active Abdirahman Rios MD Active 28-0.8 MG TABS Take one by mouth daily 09/20 VIT-FE FUMARATE-FA 98125168836 No Longer Active Abdirahman Rios MD Active CIPRO 500 MG TAB 1 tablet by mouth twice daily CIPROFLOXACIN HCL 20581360337 No Longer Active Abdirahman Rios MD Active BENADRYL 25 MG CAP 1 po q8hr PRN Congestion DIPHENHYDRAMINE HCL 93578976312 No Longer Active Abdirahman Rios MD Active ZOLOFT 50 MG TAB 1 po qd SERTRALINE HCL 385400 78828 No Longer Active Abdirahman Rios MD Active AMOXICILLIN 875 MG TABS 1 tab by mouth twice daily 201 08/09/13 AMOXICILLIN 01851393259 No Longer Active Abdirahman Rios MD Activ e AMOXICILLIN 875 MG TABS 1 tab by mouth twice daily 201 07/19/27 AMOXICILLIN 61062188053 No Longer Active Abdirahman Rios MD Activ e BACTRIM DS 800-160 MG TAB 2 tab by mouth twice daily 2 TRIMETHOPRIM-SULFAMETHOXAZOLE 94764425291 No Longer Active Abdirahman Rios MD Active KEFLEX 500 MG CAP 1 po tid x 10 days CEPHALEXIN 83962986219 No Longer Active Abdirahman Rios MD Active AMOXICILLIN 875 MG TABS 1 tab by mouth twice daily 201 07/18/07 AMOXICILLIN 70428611819 No Longer Active Abdirahman Rios MD Activ e BACTRIM DS 800-160 MG TAB 2 tab by mouth twice daily 2 BACTRIM DS 800-160 MG TAB TRIMETHOPRIM-SULFAMETHOXAZOLE Inactive ZOLOFT 50 MG TAB 1 po qd ZOLOFT 50 MG TAB 3129 41 SERTRALINE HCL Inactive BENADRYL 25 MG CAP 1 po q8hr PRN Congestion BENADRYL 25 MG CAP 8546018 DIPHENHYDRAMINE HCL Inactive 28-0.8 MG TABS Take one by mouth daily 09/20 28-0.8 MG TABS VIT-FE FUMARATE-FA Inactive HYDROCODONE-ACETAMINOPHEN 5-325 MG TABS 1 po q 6hr PRN Pain 2010 HYDROCODONE-ACETAMINOPHEN 5-325 MG TABS 504906 HYDROCODONE-ACETAMINOPHEN Inactive LORATADINE 10 MG TABS 1 tablet by mouth daily LORATADINE 10 MG TABS 150471 LORATADINE Inactive LUIS 3-0.02 MG TABS 1 tablet by mouth daily as directed LUIS 3-0.02 MG TABS DROSPIRENONE-ETHINYL ESTRADIOL Inactive VITAMINS TABS Take one by mouth daily VITAMINS TABS MV & MIN W/FE-FA TABS Inactive PERCOCET 5-325 MG TABS 1 tablet by mouth every 6 hours as ne eded for pain PERCOCET 5-325 MG TABS 9055102 OXYCODONE-ACETAMIN OPHEN Inactive PREDNISONE 20 MG TAB 2 tabs daily for 4 days, 1 t ab daily for 4 days, 1/2 tab daily for 4 days PREDNISONE 20 MG TAB 562874 PREDNISON E Inactive CLINDAMYCIN HCL 300 MG CAPS 1 po q6hr x 7 days CLINDAMYCIN HCL 300 MG CAPS 294851 CLINDAMYCIN HCL Inactive HYDROCODONE-ACETAMINOPHEN 7.5-325 MG TABS 1 po QID PRN Pain 2011 HYDROCODONE-ACETAMINOPHEN 7.5-325 MG TABS 063764 HYDROCODONE-ACETAMINOPHEN Inactive SPIRONOLACTONE 25 MG TAB 1 tablet by mouth daily 01/22 SPIRONOLACTONE 25 MG TAB 839444 SPIRONOLACTONE Inactive IBUPROFEN 600 MG TAB 1 po q6-8hr PRN IBUPROFEN 600 MG TAB 398464 IBUPROFEN Inactive FERROUS SULFATE 325 (65 FE) MG TABS 1 tablet by mouth twice yung y FERROUS SULFATE 325 (65 FE) MG TABS 216976 FERROUS SULF ATE Inactive HYDROCODONE-ACETAMINOPHEN 7.5-500 MG TABS 1-2 every 4 hours as needed HYDROCODONE-ACETAMINOPHEN 7.5-500 MG TABS 784564 HYDROCODONE-ACETAMINOPHEN Inactive GENERESS FE 0.8-25 MG-MCG CHEW [...] PRN Pain 2011 HYDROCODONE-ACETAMINOPHEN 5-325 MG TABS 963546 HYDROCODONE-ACETAMINOPHEN Inactive DOXYCYCLINE HYCLATE 100 MG CAPS Take one (1) tablet by mouth twice a day DOXYCYCLINE HYCLATE 100 MG CAPS 130071 DOXYCYCLINE HYCLATE Inactive PENICILLIN V POTASSIUM 500 MG TAB 1 four times a day 2 PENICILLIN V POTASSIUM 500 MG TAB 281693 PENICILLIN V POTASSIUM [place] ct[place] PRISTIQ 50 MG [id number] 1 po qd PRISTIQ 50 MG [id number] DESVENLAFAXINE SUCCINATE Inactive TYLENOL/CODEINE #3 300-30 MG TAB 1-2 po q6hr PRN Pain TYLENOL/CODEINE #3 300-30 MG TAB 518830 ACETAMINOPHEN-CODEINE Inact krishna CEPHALEXIN 500 MG TABS Take one by mouth four times daily, morning, noon, early evening and bedtime. CEPHALEXIN 500 MG TABS 884285 CEPHALEXIN Inactive LORTAB 5 5-500 MG TABS 1/2 to 1 tablet by mouth go ry 6 hours as needed for pain LORTAB 5 5-500 MG TABS HYDROCODONE-A CETAMINOPHEN Inactive AMITRIPTYLINE HCL 25 MG TAB 1 tab by mouth daily 60 minutes before bedtime AMITRIPTYLINE HCL 25 MG TAB 703821 AMITRIPTYLINE HCL Inactive AMOXICILLIN 500 MG TABS 2 tabs PO bid x 10 d 7 AMOXICILLIN 500 MG TABS 205829 AMOXICILLIN Inactive IMPLANON 68 MG IMPL IMPLANTED IN LEFT ARM IMPLANON 68 MG IMPL ETONOGESTREL Inactive HYDROCODONE-ACETAMINOPHEN 5-325 MG TABS 1 PO tid PRN pain 5 HYDROCODONE-ACETAMINOPHEN 5-325 MG TABS 594930 HYDROCODONE-ACETAMIN OPHEN Inactive BACTRIM DS 800-160 MG TAB 1 tab by mouth twice daily 2 BACTRIM DS 800-160 MG TAB TRIMETHOPRIM-SULFAMETHOXAZOLE Inac tive CEPHALEXIN 500 MG CAPS 1 PO bid x 7 days CEPHALEXIN 500 MG CAPS 174117 CEPHALEXIN Inactive HYDROCODONE-ACETAMINOPHEN 5-325 MG TABS 1 tab by mouth every 6 hours as needed HYDROCODONE-ACETAMINOPHEN 5-325 MG TABS 337497 HYDROCODONE-ACETAMINOPHEN Inactive PROMETHAZINE-CODEINE 6.25-10 MG/5ML SYRP 1 tsp every 6 hrs prn c ough PROMETHAZINE-CODEINE 6.25-10 MG/5ML SYRP 602632 PROMETH AZINE-CODEINE Inactive IBUPROFEN 800 MG TAB 1 pill three times daily as needed for pain IBUPROFEN 800 MG TAB 106897 IBUPROFEN Inactive KEFLEX 500 MG CAP 1 tab po tid KEFLEX 500 MG CAP 763884 CEPHALEXIN Inactive HYDROCODONE-ACETAMINOPHEN 7.5-325 MG TABS 1 four times a day as needed for pain HYDROCODONE-ACETAMINOPHEN 7.5-325 MG TABS 819351 HYDROCODONE-ACETAMINOPHEN Inactive BACTRIM DS 800-160 MG TABS by mouth twice a day 11/05 BACTRIM DS 800-160 MG TABS SULFAMETHOXAZOLE-TRIMETHOPRIM Inactive AMOXICILLIN 875 MG TABS 1 tab by mouth twice daily 201 07/18/07 AMOXICILLIN 875 MG TABS 282009 AMOXICILLIN Inactive KEFLEX 500 MG CAP 1 po tid x 10 days KEFLEX 500 MG CAP 940844 CEPHALEXIN Inactive AMOXICILLIN 875 MG TABS 1 tab by mouth twice daily 201 07/19/27 AMOXICILLIN 875 MG TABS 407231 AMOXICILLIN Inactive AMOXICILLIN 875 MG TABS 1 tab by mouth twice daily 08/09/13 AMOXICILLIN 875 MG TABS 017080 AMOXICILLIN Inactive CIPRO 500 MG TAB 1 tablet by mouth twice daily CIPRO 500 MG TAB 106490 CIPROFLOXACIN HCL Inactive BACTRIM DS 800-160 MG TAB 1 tab by mouth twice daily 2 BACTRIM DS 800-160 MG TAB TRIMETHOPRIM-SULFAMETHOXAZOLE Inac tive LEVAQUIN 500 MG TABS 1 PO q day x 7 days LEVAQUIN 500 MG TABS 281994 LEVOFLOXACIN Inactive Advance Directives Directive Description Start Date PERMISSION TO SHARE Immunizations Vaccine Administration Date Value Standard Alf cription Seasonal influenza vaccine, injectable, containing preservative, for > 3 years old (Afluria, FluLaval, Fluzone, Fluvirin, Fluarix, Agriflu(>= 18 yo)) Fluzone (>3 yrs.) [[id number]] Influenza, seasonal, inject able Seasonal influenza vaccine, injectable, preservative free, for > 3 years old (Afluria, FluLaval, Fluzone, Fluvirin, Fluarix, Agriflu(>= 18 yo)) Fluzone preservative free (>3 yrs.) [[id number]] Influenza, seasonal, injectable, preservative free Seasonal influenza vaccine, injectable, containing preservative, for > 3 years old (Afluria, FluLaval, Fluzone, Fluvirin, Fluarix, Agriflu(>= 18 yo)) Fluzone (>3 yrs.) [[id number]] Influenza, seasonal, inject able Seasonal influenza vaccine, injectable, containing preservative, for > 3 years old (Afluria, FluLaval, Fluzone, Fluvirin, Fluarix, Agriflu(>= 18 yo)) Fluzone (>3 yrs.) [[id number]] Influenza, seasonal, inject able dT (Diphtheria and [...] mg/dL Chart Maintenance: Outside labs entered on [employer] - Hematology leukocyte count, blood 8.3 10*3/mm3 erythrocyte (RBC) count 5.2 10*6/mm3 hemoglobin, blood 14.2 g/dL hematocrit, blood 42.6 % mean corpuscular volume, RBC 82.4 fL mean corpuscular hemoglobin, RBC 27.5 pg red blood cell distribution width 12.9 % platelet count 316 10*3/mm3 Lab Report: CBC W/DIFF, Comp. Metabolic Panel, Thyroid Stimulating Hormo ... - Chemistry sodium, serum 140 mmol/L 506-069 9553/02/24 potassium, serum 4.3 mmol/L 3.5-5.2 chloride, serum [...] 4.3-6.0 Lab Report: T3, TOTAL, INSULIN - Linen Folder ry triiodothyronine, serum 78 ng/dL 76-181 Lab [...] mg/dL Encounters Code Encounter Date Provider Facility CPT-87461 Level 3 Est. Patient 14:11:58 CDT Kalpesh goins MD [facility] CPT-16150 Level 3 Est. Patient 16:50:00 CDT Michelle MERCADO [facility] CPT-80797 Level 3 Est. Patient 17:11:32 [employer]ING C[employer]TER Brandie bates MD PhD [facility] CPT-60211 Level 3 Est. Patient 16:31:47 [employer]TER Shola MCGILL [facility] CPT-61546 Level 3 Est. Patient 17:51:10 [employer] Abhinav Galvan MD [facility] CPT-96381 Level 4 Est. Patient 12:54:56 [employer]ING C[employer]TER Kalpesh goins MD [facility] CPT-26263 Level 4 Est. Patient 12:53:56 [employer] C[employer]TER Kalpesh goins MD [facility] CPT-74840 Level 3 Est. Patient 17:56:58 CDT Shola MCGILL [facility] CPT-09312 Level 3 Est. Patient 14:26:20 CDT Janak butcher [facility] CPT-39795 Level 3 Est. Patient 09:38:41 CDT Shola Wright [facility] CPT-12423 Level 3 Est. Patient 14:45:26 CDT Edilberto tiwari [facility] CPT-43086 Level 3 Est. Patient 10:51:33 CDT Hira muniz [facility] CPT-82388 Level 3 Est. Patient 11:57:55 LINING CUTTER Shola Thao Adriana [facility] CPT-24834 Level 3 Est. Patient 09:53:33 LINING CUTTER Edilberto tiwari [facility] CPT-79575 Level 3 Est. Patient 14:42:54 LINING CUTTER Abhinav Galvan MD [facility] CPT-24169 Level 3 Est. Patient 15:10:02 CDT Janak butcher [facility] CPT-99498 Level 3 Est. Patient 15:20:20 CDT Theo dennis MD [facility] CPT-55589 Level 2 Est. Patient 14:08:57 CDT Kalpesh goins MD [facility] CPT-08321 Level 3 Est. Patient 13:56:19 CDT Abdirahman Rios MD [facility] CPT-04318 Level 3 Est. Patient 13:59:37 CDT Abdirahman Rios MD [facility] CPT-60309 Level 2 Est. Patient 14:44:59 CDT Kalpesh goins MD [facility]-90700 Level 3 Est. Patient 06:06:23 CDT Edilberto tiwari [facility] CPT-55840 Level 3 Est. Patient 15:23:54 CDT Abdirahman Rios MD [facility] CPT-96906 Level 3 Est. Patient 15:43:49 CDT Abdirahman Rios MD [facility] CPT-07576 Level 3 Est. Patient 12:46:47 LINING CUTTER Abdirahman Rios MD [facility] CPT-30397 Level 3 Est. Patient 08:13:35 LINING CUTTER Abdirahman Rios MD [facility] CPT-55379 Level 2 Est. Patient 09:36:42 LINING CUTTER Abdirahman Rios MD [facility] CPT-17675 Level 3 Est. Patient 10:56:43 CDT Abdirahman Rios MD [facility] CPT-81139 Level 3 Est. Patient 18:24:52 CDT Abdirahman Rios MD [facility] CPT-35348 Level 3 Est. Patient 13:27:22 CDT Abdirahman Rios MD [facility] Procedures Code Procedure Name Date Entry Date Standard Desc ription CPT-OV Office Visit 15:34:48 CDT CPT-15724 Postop F/U Visit 14:50:12 CDT CPT-86619 Postop F/U Visit 14:41:10 CDT CPT-71653 Venipuncture Draw Fee 11:38:04 LINING CUTTER CPT-24725 Postop F/U Visit 19:02:59 LINING CUTTER CPT-38753 Postop F/U Visit 12:04:54 LINING CUTTER CPT-35388 Administration single or combination vac cine inc oral 15:56:43 CDT CPT-82481 Influenza split virus > age 3 15:56:43 CDT CPT-19928 Hand comp min 3V 14:25:19 CDT CPT-93675 Postop F/U Visit 21:40:51 CDT CPT-40877 Postop F/U Visit 10:58:43 CDT CPT-83247 Administration single or combination vac cine inc oral 12:33:54 LINING CUTTER CPT-40754 Influenza Preservative Free split virus >age 3 12:33:54 LINING CUTTER CPT-36541 Administration single or combination vac cine inc oral 09:30:51 CDT CPT-38342 Influenza split virus > age 3 09:30:51 CDT CPT-57309 Postop F/U Visit 15:14:53 CDT CPT-58452 Postop F/U Visit 13:50:14 CDT CPT-65346 Postop F/U Visit 13:34:52 CDT CPT-OV Office Visit 16:55:03 CDT CPT-78413 [place] of cervix w bx ECC 13:32:50 CDT 10/19 CPT-J1885 Toradol 60 mg (Ketorolac) 15:31:59 CDT 2011 CPT-J1885 Toradol 60 mg (Ketorolac) 15:23:54 CDT 2011 CPT-15774 Visit 11:34:37 LINING CUTTER CPT-81482 Visit 10:52:39 LINING CUTTER CPT-66550 Visit 10:12:02 LINING CUTTER CPT-09720 Visit 11:22:43 LINING CUTTER CPT-88463 Visit 11:24:12 LINING CUTTER CPT-18958 Visit 10:47:05 LINING CUTTER CPT-OV Office Visit 10:26:16 LINING CUTTER CPT-OV Office Visit 15:34:31 LINING CUTTER CPT-10539 Visit 10:42:08 LINING CUTTER CPT-43955 Visit 10:52:45 LINING CUTTER CPT-000 Give Appropriate Flu Vaccine 16:56:41 CDT 2 CPT-48733 Administration single or combination vac cine inc oral 10:33:21 CDT CPT-80162 Influenza split virus > age 3 10:33:21 CDT CPT-83456 Visit 13:23:09 CDT CPT-06695 Visit 18:24:52 CDT CPT-22870 Sono OB comp > 14 weeks 12:07:49 CDT 04/07
--- OUTSIDE RECORDS SUMMARY | 2020-01-18 17:18 | XMS REPORT | Clinical Summary ---
Author Author Admin, Jeri Rashid Organization [facility] Address Unknown Phone Allergies, Adverse Reactions, [...] by mouth twice a day 11/05 SULFAMETHOXAZOLE-TRIMETHOPRIM [id number] No Longer Active Good Julian MD Active IBUPROFEN 800 MG TABS 1 tid prn IBUPROFEN 93442524892 Active Good Julian MD Active ENDOCET 10-325 MG TABS 1 q 6 hr prn OXYCODONE-A CETAMINOPHEN 00020773293 Active Good Julian MD Active HYDROCODONE-ACETAMINOPHEN 7.5-325 MG TABS 1 four times a day as needed for pain HYDROCODONE-ACETAMINOPHEN 73527911897 No Longer Activ crystal Julian MD Active KEFLEX 500 MG CAP 1 tab po tid CEPHALEXIN 800262 76941 No Longer Active Hira Moser APRN Active IBUPROFEN 800 MG TAB 1 pill three times daily as needed for pain IBUPROFEN 82417417540 No Longer Active Kalpesh Dong MD Active PROMETHAZINE-CODEINE 6.25-10 MG/5ML SYRP 1 tsp every 6 hrs prn c ough PROMETHAZINE-CODEINE 20144808488 No Longer Active Kalpesh Carr Active ALPRAZOLAM 0.5 MG TABS 1 PO bid PRN ALPRAZOLAM 506113 31880 Active Shola MCGILL Active HYDROCODONE-ACETAMINOPHEN 5-325 MG TABS 1 tab by mouth every 6 hours as needed HYDROCODONE-ACETAMINOPHEN 05900728167 No Longer Activ e Shola MCGILL Active CEPHALEXIN 500 MG CAPS 1 PO bid x 7 days CEPHAL EXIN 74299783426 No Longer Active Shola MCGILL Active BACTRIM DS 800-160 MG TAB 1 tab by mouth twice daily 2 TRIMETHOPRIM-SULFAMETHOXAZOLE 60867620716 No Longer Active Kalpesh Dong MD Active HYDROCODONE-ACETAMINOPHEN 5-325 MG TABS 1 PO tid PRN pain 5 HYDROCODONE-ACETAMINOPHEN 53661766066 No Longer Active Abhinav Galvan MD Active IMPLANON 68 MG IMPL IMPLANTED IN LEFT ARM ETONO GESTREL 16621118933 No Longer Active 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 BLOOD OR BLOOD BANK TECHNICIAN Active AMOXICILLIN 500 MG TABS 2 tabs PO bid x 10 d AM OXICILLIN 17084795268 No Longer Active Kalpesh Dong MD Active LEVAQUIN 500 MG TABS 1 PO q day x 7 days LEVOFL OXACIN 70913388072 No Longer Active Shola MCGILL Active PROAIR HFA 108 (90 BASE) MCG/ACT AERS 2 puff q 4-6 hrs PRN ALBUTEROL SULFATE 49091028174 Active Shola MCGILL Acti ve FIORICET 50-325-40 MG TABS 2 PO q 8 hrs PRN FOSTER [id number] 98882116932 Active Abdirahman Rios MD Active AMITRIPTYLINE HCL 25 MG TAB 1 tab by mouth daily 60 minutes before bedtime AMITRIPTYLINE HCL 52684168013 No Longer Active Shola MCGILL Active LORTAB 5 5-500 MG TABS 1/2 to 1 tablet by mouth go ry 6 hours as needed for pain HYDROCODONE-ACETAMINOPHEN 01519856981 No Longer Active Shola MCGILL Active CEPHALEXIN 500 MG TABS Take one by mouth four times daily, morning, noon, early evening and bedtime. CEPHALEXIN 82910750974 No Long er Active Hira Perazaabel BLOOD OR BLOOD BANK TECHNICIAN Active TYLENOL/CODEINE #3 300-30 MG TAB 1-2 po q6hr PRN Pain ACETAMINOPHEN-CODEINE 43091017617 No Longer Active Edilberto Marino DO Active PRISTIQ 50 MG [id number] 1 po qd DESVENLAFAXI NE SUCCINATE 62054443366 No Longer Active Edilberto Marino DO Active PENICILLIN V POTASSIUM 500 MG TAB 1 four times a day 2 PENICILLIN V POTASSIUM 77391962925 No Longer Active Edilberto Marino DO Active DOXYCYCLINE HYCLATE 100 MG CAPS Take one (1) tablet by mouth twice a day DOXYCYCLINE HYCLATE 65616504766 No Longer Active Ronnie Galvan MD Active HYDROCODONE-ACETAMINOPHEN 5-325 MG TABS 1 po q 6hr PRN Pain 2011 HYDROCODONE-ACETAMINOPHEN 21931269869 No Longer Active Patri joan Perez RN Active BACTRIM DS 800-160 MG TAB 1 tab by mouth twice daily 2 TRIMETHOPRIM-SULFAMETHOXAZOLE 97298923748 No Longer Active Kalpesh Dong MD Active LORTAB 5 5-500 MG TABS 1/2 to 1 tablet by mouth go ry 4 hours as needed for pain HYDROCODONE-ACETAMINOPHEN 65393682172 No Longer Active Kalpesh Dong MD Active GENERESS FE 0.8-25 MG-MCG CHEW Take one by mouth daily NORETHIN-ETH ESTRADIOL-FE 19046894036 No Longer Active Kalpesh Dong MD Active HYDROCODONE-ACETAMINOPHEN 7.5-500 MG TABS 1-2 every 4 hours as needed HYDROCODONE-ACETAMINOPHEN 19374819310 No Longer Activ e Kalpesh Dong MD Active FERROUS SULFATE 325 (65 FE) MG TABS 1 tablet by mouth twice yung y FERROUS SULFATE 40811752121 No Longer Active Kalpesh Dong MD Active IBUPROFEN 600 MG TAB 1 po q6-8hr PRN IBUPROFEN 94502426481 No Longer Active Kalpesh Dong MD Active SPIRONOLACTONE 25 MG TAB 1 tablet by mouth daily 01/22 SPIRONOLACTONE 69715983077 No Longer Active Kalpesh Dong MD Acti ve HYDROCODONE-ACETAMINOPHEN 7.5-325 MG TABS 1 po QID PRN Pain 2011 HYDROCODONE-ACETAMINOPHEN 24611511736 No Longer Active Kalpesh Dong MD Active CLINDAMYCIN HCL 300 MG CAPS 1 po q6hr x 7 days CLINDAMYCIN HCL 47548135022 No Longer Active Edilberto Marino DO Active PREDNISONE 20 MG TAB 2 tabs daily for 4 days, 1 t ab daily for 4 days, 1/2 tab daily for 4 days PREDNISONE 62640143936 No Longer Active Edilberto Marino DO Active PERCOCET 5-325 MG TABS 1 tablet by mouth every 6 hours as ne eded for pain OXYCODONE-ACETAMINOPHEN 30324669893 No Longer Active Abdirahman Rios MD Active VITAMINS TABS Take one by mouth daily MV & MIN W/FE-FA TABS 35563977400 No Longer Active Abdirahman Rios MD Active LUIS 3-0.02 MG TABS 1 tablet by mouth daily as directed DROSPIRENONE-ETHINYL ESTRADIOL 21055525534 No Longer Active Abdirahman Rios MD Active LORATADINE 10 MG TABS 1 tablet by mouth daily L ORATADINE 68215490324 No Longer Active Kalpesh Dong MD Active HYDROCODONE-ACETAMINOPHEN 5-325 MG TABS 1 po q 6hr PRN Pain 2010 HYDROCODONE-ACETAMINOPHEN 56591735057 No Longer Active Edilberto Marino DO Active BACTRIM DS 800-160 MG TAB 1 tab by mouth twice daily 2 TRIMETHOPRIM-SULFAMETHOXAZOLE 13505671205 No Longer Active Abdirahman Rios MD Active 28-0.8 MG TABS Take one by mouth daily 09/20 VIT-FE FUMARATE-FA 07734454618 No Longer Active Abdirahman Rios MD Active CIPRO 500 MG TAB 1 tablet by mouth twice daily CIPROFLOXACIN HCL 16070799413 No Longer Active Abdirahman Rios MD Active BENADRYL 25 MG CAP 1 po q8hr PRN Congestion DIPHENHYDRAMINE HCL 45998635784 No Longer Active Abdirahman Rios MD Active ZOLOFT 50 MG TAB 1 po qd SERTRALINE HCL 258505 99194 No Longer Active Abdirahman Rios MD Active AMOXICILLIN 875 MG TABS 1 tab by mouth twice daily 201 08/09/13 AMOXICILLIN 77971693183 No Longer Active Abdirahman Rios MD Activ e AMOXICILLIN 875 MG TABS 1 tab by mouth twice daily 201 07/19/27 AMOXICILLIN 00207835303 No Longer Active Abdirahman Rios MD Activ e BACTRIM DS 800-160 MG TAB 2 tab by mouth twice daily 2 TRIMETHOPRIM-SULFAMETHOXAZOLE 91559739443 No Longer Active Abdirahman Rios MD Active KEFLEX 500 MG CAP 1 po tid x 10 days CEPHALEXIN 79013456732 No Longer Active Abdirahman Rios MD Active AMOXICILLIN 875 MG TABS 1 tab by mouth twice daily 201 07/18/07 AMOXICILLIN 05225939543 No Longer Active Abdirahman Rios MD Activ e BACTRIM DS 800-160 MG TAB 2 tab by mouth twice daily 2 BACTRIM DS 800-160 MG TAB TRIMETHOPRIM-SULFAMETHOXAZOLE Inactive ZOLOFT 50 MG TAB 1 po qd ZOLOFT 50 MG TAB 3129 41 SERTRALINE HCL Inactive BENADRYL 25 MG CAP 1 po q8hr PRN Congestion BENADRYL 25 MG CAP 6645548 DIPHENHYDRAMINE HCL Inactive 28-0.8 MG TABS Take one by mouth daily 09/20 28-0.8 MG TABS VIT-FE FUMARATE-FA Inactive HYDROCODONE-ACETAMINOPHEN 5-325 MG TABS 1 po q 6hr PRN Pain 2010 HYDROCODONE-ACETAMINOPHEN 5-325 MG TABS 246429 HYDROCODONE-ACETAMINOPHEN Inactive LORATADINE 10 MG TABS 1 tablet by mouth daily LORATADINE 10 MG TABS 702653 LORATADINE Inactive LUIS 3-0.02 MG TABS 1 tablet by mouth daily as directed LUIS 3-0.02 MG TABS DROSPIRENONE-ETHINYL ESTRADIOL Inactive VITAMINS TABS Take one by mouth daily VITAMINS TABS MV & MIN W/FE-FA TABS Inactive PERCOCET 5-325 MG TABS 1 tablet by mouth every 6 hours as ne eded for pain PERCOCET 5-325 MG TABS 7248420 OXYCODONE-ACETAMIN OPHEN Inactive PREDNISONE 20 MG TAB 2 tabs daily for 4 days, 1 t ab daily for 4 days, 1/2 tab daily for 4 days PREDNISONE 20 MG TAB 091571 PREDNISON E Inactive CLINDAMYCIN HCL 300 MG CAPS 1 po q6hr x 7 days CLINDAMYCIN HCL 300 MG CAPS 438630 CLINDAMYCIN HCL Inactive HYDROCODONE-ACETAMINOPHEN 7.5-325 MG TABS 1 po QID PRN Pain 2011 HYDROCODONE-ACETAMINOPHEN 7.5-325 MG TABS 335698 HYDROCODONE-ACETAMINOPHEN Inactive SPIRONOLACTONE 25 MG TAB 1 tablet by mouth daily 01/22 SPIRONOLACTONE 25 MG TAB 563271 SPIRONOLACTONE Inactive IBUPROFEN 600 MG TAB 1 po q6-8hr PRN IBUPROFEN 600 MG TAB 253266 IBUPROFEN Inactive FERROUS SULFATE 325 (65 FE) MG TABS 1 tablet by mouth twice yung y FERROUS SULFATE 325 (65 FE) MG TABS 641724 FERROUS SULF ATE Inactive HYDROCODONE-ACETAMINOPHEN 7.5-500 MG TABS 1-2 every 4 hours as needed HYDROCODONE-ACETAMINOPHEN 7.5-500 MG TABS 899372 HYDROCODONE-ACETAMINOPHEN Inactive GENERESS FE 0.8-25 MG-MCG CHEW [...] PRN Pain 2011 HYDROCODONE-ACETAMINOPHEN 5-325 MG TABS 405368 HYDROCODONE-ACETAMINOPHEN Inactive DOXYCYCLINE HYCLATE 100 MG CAPS Take one (1) tablet by mouth twice a day DOXYCYCLINE HYCLATE 100 MG CAPS 288915 DOXYCYCLINE HYCLATE Inactive PENICILLIN V POTASSIUM 500 MG TAB 1 four times a day 2 PENICILLIN V POTASSIUM 500 MG TAB 407019 PENICILLIN V POTASSIUM [place] ctive PRISTIQ 50 MG [id number] 1 po qd PRISTIQ 50 MG [id number] DESVENLAFAXINE SUCCINATE Inactive TYLENOL/CODEINE #3 300-30 MG TAB 1-2 po q6hr PRN Pain TYLENOL/CODEINE #3 300-30 MG TAB 015705 ACETAMINOPHEN-CODEINE Inact krishna CEPHALEXIN 500 MG TABS Take one by mouth four times daily, morning, noon, early evening and bedtime. CEPHALEXIN 500 MG TABS 834051 CEPHALEXIN Inactive LORTAB 5 5-500 MG TABS 1/2 to 1 tablet by mouth go ry 6 hours as needed for pain LORTAB 5 5-500 MG TABS HYDROCODONE-A CETAMINOPHEN Inactive AMITRIPTYLINE HCL 25 MG TAB 1 tab by mouth daily 60 minutes before bedtime AMITRIPTYLINE HCL 25 MG TAB 954537 AMITRIPTYLINE HCL Inactive AMOXICILLIN 500 MG TABS 2 tabs PO bid x 10 d 7 AMOXICILLIN 500 MG TABS 846793 AMOXICILLIN Inactive IMPLANON 68 MG IMPL IMPLANTED IN LEFT ARM IMPLANON 68 MG IMPL ETONOGESTREL Inactive HYDROCODONE-ACETAMINOPHEN 5-325 MG TABS 1 PO tid PRN pain 5 HYDROCODONE-ACETAMINOPHEN 5-325 MG TABS 877718 HYDROCODONE-ACETAMIN OPHEN Inactive BACTRIM DS 800-160 MG TAB 1 tab by mouth twice daily 2 BACTRIM DS 800-160 MG TAB TRIMETHOPRIM-SULFAMETHOXAZOLE Inac tive CEPHALEXIN 500 MG CAPS 1 PO bid x 7 days CEPHALEXIN 500 MG CAPS 111793 CEPHALEXIN Inactive HYDROCODONE-ACETAMINOPHEN 5-325 MG TABS 1 tab by mouth every 6 hours as needed HYDROCODONE-ACETAMINOPHEN 5-325 MG TABS 830851 HYDROCODONE-ACETAMINOPHEN Inactive PROMETHAZINE-CODEINE 6.25-10 MG/5ML SYRP 1 tsp every 6 hrs prn c ough PROMETHAZINE-CODEINE 6.25-10 MG/5ML SYRP 699416 PROMETH AZINE-CODEINE Inactive IBUPROFEN 800 MG TAB 1 pill three times daily as needed for pain IBUPROFEN 800 MG TAB 147559 IBUPROFEN Inactive KEFLEX 500 MG CAP 1 tab po tid KEFLEX 500 MG CAP 315390 CEPHALEXIN Inactive HYDROCODONE-ACETAMINOPHEN 7.5-325 MG TABS 1 four times a day as needed for pain HYDROCODONE-ACETAMINOPHEN 7.5-325 MG TABS 410216 HYDROCODONE-ACETAMINOPHEN Inactive BACTRIM DS 800-160 MG TABS by mouth twice a day 11/05 BACTRIM DS 800-160 MG TABS SULFAMETHOXAZOLE-TRIMETHOPRIM Inactive AMOXICILLIN 875 MG TABS 1 tab by mouth twice daily 201 07/18/07 AMOXICILLIN 875 MG TABS 486935 AMOXICILLIN Inactive KEFLEX 500 MG CAP 1 po tid x 10 days KEFLEX 500 MG CAP 505087 CEPHALEXIN Inactive AMOXICILLIN 875 MG TABS 1 tab by mouth twice daily 201 07/19/27 AMOXICILLIN 875 MG TABS 535918 AMOXICILLIN Inactive AMOXICILLIN 875 MG TABS 1 tab by mouth twice daily 08/09/13 AMOXICILLIN 875 MG TABS 382385 AMOXICILLIN Inactive CIPRO 500 MG TAB 1 tablet by mouth twice daily CIPRO 500 MG TAB 590846 CIPROFLOXACIN HCL Inactive BACTRIM DS 800-160 MG TAB 1 tab by mouth twice daily 2 BACTRIM DS 800-160 MG TAB TRIMETHOPRIM-SULFAMETHOXAZOLE Inac tive LEVAQUIN 500 MG TABS 1 PO q day x 7 days LEVAQUIN 500 MG TABS 320456 LEVOFLOXACIN Inactive Advance Directives Directive Description Start Date PERMISSION TO SHARE Immunizations Vaccine Administration Date Value Standard Alf cription Seasonal influenza vaccine, injectable, containing preservative, for > 3 years old (Afluria, FluLaval, Fluzone, Fluvirin, Fluarix, Agriflu(>= 18 yo)) Fluzone (>3 yrs.) [[id number]] Influenza, seasonal, inject able Seasonal influenza vaccine, injectable, preservative free, for > 3 years old (Afluria, FluLaval, Fluzone, Fluvirin, Fluarix, Agriflu(>= 18 yo)) Fluzone preservative free (>3 yrs.) [[id number]] Influenza, seasonal, injectable, preservative free Seasonal influenza vaccine, injectable, containing preservative, for > 3 years old (Afluria, FluLaval, Fluzone, Fluvirin, Fluarix, Agriflu(>= 18 yo)) Fluzone (>3 yrs.) [[id number]] Influenza, seasonal, inject able Seasonal influenza vaccine, injectable, containing preservative, for > 3 years old (Afluria, FluLaval, Fluzone, Fluvirin, Fluarix, Agriflu(>= 18 yo)) Fluzone (>3 yrs.) [[id number]] Influenza, seasonal, inject able dT (Diphtheria and [...] ... - Chemistry sodium, serum 140 mmol/L 945-315 8017/02/24 potassium, serum 4.3 mmol/L 3.5-5.2 chloride, serum [...] 4.3-6.0 Lab Report: T3, TOTAL, INSULIN - Adhesive Bandage Machine Operator ry triiodothyronine, serum 78 ng/dL [...] mg/dL Encounters Code Encounter Date Provider Facility CPT-29637 Level 3 Est. Patient 14:11:58 CDT Kalpesh goins MD [facility] CPT-06488 Level 3 Est. Patient 16:50:00 CDT Michelle MERCADO [facility] CPT-67224 Level 3 Est. Patient 17:11:32 MASS SPECTROSCOPIST Brandie bates MD PhD [facility] CPT-35253 Level 3 Est. Patient 16:31:47 MASS SPECTROSCOPIST Shola MCGILL [facility] CPT-73821 Level 3 Est. Patient 17:51:10 MASS SPECTROSCOPIST Abhinav Galvan MD [facility] CPT-73920 Level 4 Est. Patient 12:54:56 MASS SPECTROSCOPIST Kalpesh goins MD [facility] CPT-44397 Level 4 Est. Patient 12:53:56 MASS SPECTROSCOPIST Kalpesh goins MD [facility] CPT-28778 Level 3 Est. Patient 17:56:58 CDT Shola Wright [facility] CPT-12380 Level 3 Est. Patient 14:26:20 CDT Janak butcher [facility] CPT-46912 Level 3 Est. Patient 09:38:41 CDT Shola Keesha Wright [facility] CPT-88218 Level 3 Est. Patient 14:45:26 CDT Edilberto tiwari [facility]-48818 Level 3 Est. Patient 10:51:33 [facility] Level 3 Est. Patient 11:57:55 MASS SPECTROSCOPIST Shola Thao Adriana [facility] CPT-32155 Level 3 Est. Patient 09:53:33 MASS SPECTROSCOPIST Edilberto tiwari [facility] CPT-37947 Level 3 Est. Patient 14:42:54 MASS SPECTROSCOPIST Abhinav Galvan MD [facility] CPT-41276 Level 3 Est. Patient 15:10:02 CDT Janak butcher [facility] CPT-68748 Level 3 Est. Patient 15:20:20 CDT Theo dennis MD [facility] CPT-98031 Level 2 Est. Patient 14:08:57 CDT Kalpesh goins MD [facility]-99209 Level 3 Est. Patient 13:56:19 CDT Abdirahman Rios MD [facility] CPT-18227 Level 3 Est. Patient 13:59:37 CDT Abdirahman Rios MD [facility] CPT-59548 Level 2 Est. Patient 14:44:59 CDT Kalpesh goins MD [facility] CPT-56638 Level 3 Est. Patient 06:06:23 CDT Edilberto tiwari DO [facility] CPT-37790 Level 3 Est. Patient 15:23:54 CDT Abdirahman Rios MD [facility] CPT-49713 Level 3 Est. Patient 15:43:49 CDT Abdirahman Rios MD [facility] CPT-40304 Level 3 Est. Patient 12:46:47 MASS SPECTROSCOPIST Abdirahman Rios MD [facility] CPT-83261 Level 3 Est. Patient 08:13:35 MASS SPECTROSCOPIST Abdirahman Rios MD [facility] CPT-94890 Level 2 Est. Patient 09:36:42 MASS SPECTROSCOPIST Abdirahman Rios MD [facility] CPT-61904 Level 3 Est. Patient 10:56:43 CDT Abdirahman Rios MD [facility] CPT-43096 Level 3 Est. Patient 18:24:52 CDT Abdirahman Rios MD [facility] CPT-02433 Level 3 Est. Patient 13:27:22 CDT Abdirahman Rios MD [facility] Procedures Code Procedure Name Date Entry Date Standard Desc ription CPT-OV Office Visit 15:34:48 CDT CPT-51775 Postop F/U Visit 14:50:12 CDT CPT-80922 Postop F/U Visit 14:41:10 CDT CPT-28986 Venipuncture Draw Fee 11:38:04 MASS SPECTROSCOPIST CPT-42852 Postop F/U Visit 19:02:59 MASS SPECTROSCOPIST CPT-68162 Postop F/U Visit 12:04:54 MASS SPECTROSCOPIST CPT-14456 Administration single or combination vac cine inc oral 15:56:43 CDT CPT-60316 Influenza split virus > age 3 15:56:43 CDT CPT-90961 Hand comp min 3V 14:25:19 CDT CPT-72093 Postop F/U Visit 21:40:51 CDT CPT-17321 Postop F/U Visit 10:58:43 CDT CPT-53896 Administration single or combination vac cine inc oral 12:33:54 MASS SPECTROSCOPIST CPT-01794 Influenza Preservative Free split virus >age 3 12:33:54 MASS SPECTROSCOPIST CPT-22474 Administration single or combination vac cine inc oral 09:30:51 CDT CPT-84875 Influenza split virus > age 3 09:30:51 CDT CPT-88609 Postop F/U Visit 15:14:53 CDT CPT-21345 Postop F/U Visit 13:50:14 CDT CPT-13322 Postop F/U Visit 13:34:52 CDT CPT-OV Office Visit 16:55:03 CDT CPT-10786 [place] of cervix w bx ECC 13:32:50 CDT 10/19 CPT-J1885 Toradol 60 mg (Ketorolac) 15:31:59 CDT 2011 CPT-J1885 Toradol 60 mg (Ketorolac) 15:23:54 CDT 2011 CPT-66743 Visit 11:34:37 MASS SPECTROSCOPIST CPT-15500 Visit 10:52:39 MASS SPECTROSCOPIST CPT-36573 Visit 10:12:02 MASS SPECTROSCOPIST CPT-07188 Visit 11:22:43 MASS SPECTROSCOPIST CPT-04355 Visit 11:24:12 MASS SPECTROSCOPIST CPT-15194 Visit 10:47:05 MASS SPECTROSCOPIST CPT-OV Office Visit 10:26:16 MASS SPECTROSCOPIST CPT-OV Office Visit 15:34:31 MASS SPECTROSCOPIST CPT-06935 Visit 10:42:08 MASS SPECTROSCOPIST CPT-39259 Visit 10:52:45 MASS SPECTROSCOPIST CPT-000 Give Appropriate Flu Vaccine 16:56:41 CDT 2 CPT-68536 Administration single or combination vac cine inc oral 10:33:21 CDT CPT-40164 Influenza split virus > age 3 10:33:21 CDT CPT-37725 Visit 13:23:09 CDT CPT-84623 Visit 18:24:52 CDT CPT-78535 Sono OB comp > 14 weeks 12:07:49 CDT 04/07
--- OUTSIDE RECORDS SUMMARY | 2020-01-18 17:18 | XMS REPORT | Clinical Summary ---
Author Author Avery, Jeri Rashid Organization [facility] Address Unknown Phone Unavailable Allergies, [...] sierra MD [facility] DIABETES ICD-V18.0 Inactive Good Juilan MD AFTERCARE FOLLOW SURGERY SKIN&SUBCUT TISSUE NEC [...] 15 MG TABS 1 tab daily MELOXICAM [id number] Ac jason Julian MD Active PERCOCET 7.5-325 MG TABS 1 PO q 8 hrs PRN pain OXYCODONE-ACETAMINOPHEN 36498699394 No Longer Active Shola MCGILL Active HYDROCODONE-ACETAMINOPHEN 10-325 MG TABS 1 by mouth ev chaka 8 hours as needed for pain HYDROCODONE-ACETAMINOPHEN 89400263006 Active Shola MCGILL Active HYDROCODONE-ACETAMINOPHEN 7.5-325 MG TABS 1 by mouth e very 6 hours as needed for pain HYDROCODONE-ACETAMINOPHEN 26010003523 No Longer Active Good Julian MD Active LC-5 LIDOCAINE 5 % CREA apply 1 time daily to affected area LIDOCAINE (ANORECTAL) 82871766037 Active Shola MCGILL Active CLINDAMYCIN HCL 300 MG CAPS 1 po QID x 7 days CLINDAMYCIN HCL 02242590207 No Longer Active Abdirahman Rios MD Activ e BACTRIM DS 800-160 MG TABS 1 po BID x 7 days 5 SULFAMETHOXAZOLE-TRIMETHOPRIM 81987850055 No Longer Active Abdirahman Rios MD Active ENDOCET 10-325 MG TABS 1 q 6 hr prn OXYCODONE-ACETAMINOPHEN 48713623320 No Longer Active Abdirahman Rios MD Active IBUPROFEN 800 MG TABS 1 tid prn IBUPROFEN 185087 10018 No Longer Active Abdirahman Rios MD Active BACTRIM DS 800-160 MG TABS by mouth twice a day 11/05 SULFAMETHOXAZOLE-TRIMETHOPRIM 73143892664 No Longer Active Good Julian MD Active HYDROCODONE-ACETAMINOPHEN 7.5-325 MG TABS 1 four times a day as needed for pain HYDROCODONE-ACETAMINOPHEN 66275366912 No Longer Activ e Good Julian MD Active KEFLEX 500 MG CAP 1 tab po tid CEPHALEXIN 662562 38862 No Longer Active Hira Moser APRN Active IBUPROFEN 800 MG TAB 1 pill three times daily as needed for pain IBUPROFEN 65785911865 No Longer Active Kalpesh Dong MD Active PROMETHAZINE-CODEINE 6.25-10 MG/5ML SYRP 1 tsp every 6 hrs prn c ough PROMETHAZINE-CODEINE 47637737272 No Longer Active Kalpesh Carr Active ALPRAZOLAM 0.5 MG TABS 1 PO bid PRN ALPRAZOLAM 073146 32297 Active Shola MCGILL Active HYDROCODONE-ACETAMINOPHEN 5-325 MG TABS 1 tab by mouth every 6 hours as needed HYDROCODONE-ACETAMINOPHEN 82837684246 No Longer Activ e Shola MCGILL Active CEPHALEXIN 500 MG CAPS 1 PO bid x 7 days CEPHAL EXIN 97201522884 No Longer Active Shola MCGILL Active BACTRIM DS 800-160 MG TAB 1 tab by mouth twice daily 2 TRIMETHOPRIM-SULFAMETHOXAZOLE 41787177958 No Longer Active Kalpesh Dong MD Active HYDROCODONE-ACETAMINOPHEN 5-325 MG TABS 1 PO tid PRN pain 5 HYDROCODONE-ACETAMINOPHEN 44107674945 No Longer Active Abhinav Galvan MD Active IMPLANON 68 MG IMPL IMPLANTED IN LEFT ARM ETONO GESTREL 62524115024 No Longer Active Jielias Peraazl TIMERS INSPECTOR Active AMOXICILLIN 500 MG TABS 2 tabs PO bid x 10 d AM OXICILLIN 91392468238 No Longer Active Kalpesh Dong MD Active LEVAQUIN 500 MG TABS 1 PO q day x 7 days LEVOFL OXACIN 21359294115 No Longer Active Shola MCGILL Active PROAIR HFA 108 (90 BASE) MCG/ACT AERS 2 puff q 4-6 hrs PRN ALBUTEROL SULFATE 09830884268 Active Shola MCGILL Acti ve FIORICET 50-325-40 MG TABS 2 PO q 8 hrs PRN FOSTER [id number] Active Shola MCGILL Active AMITRIPTYLINE HCL 25 MG TAB 1 tab by mouth daily 60 minutes before bedtime AMITRIPTYLINE HCL 79677540631 No Longer Active Shola MCGILL Active LORTAB 5 5-500 MG TABS 1/2 to 1 tablet by mouth go ry 6 hours as needed for pain HYDROCODONE-ACETAMINOPHEN 68061064903 No Longer Active Shola MCGILL Active CEPHALEXIN 500 MG TABS Take one by mouth four times daily, morning, noon, early evening and bedtime. CEPHALEXIN 36293361320 No Long er Active Hira Perazaabel TIMERS INSPECTOR Active TYLENOL/CODEINE #3 300-30 MG TAB 1-2 po q6hr PRN Pain ACETAMINOPHEN-CODEINE 43861595717 No Longer Active Edilberto Marino DO Active PRISTIQ 50 MG [id number] 1 po qd DESVENLAFAXI NE SUCCINATE 94116013656 No Longer Active Edilberto Marino DO Active PENICILLIN V POTASSIUM 500 MG TAB 1 four times a day 2 PENICILLIN V POTASSIUM 70175829457 No Longer Active Edilberto Marino DO Active DOXYCYCLINE HYCLATE 100 MG CAPS Take one (1) tablet by mouth twice a day DOXYCYCLINE HYCLATE 89068887184 No Longer Active Ronnie Galvan MD Active HYDROCODONE-ACETAMINOPHEN 5-325 MG TABS 1 po q 6hr PRN Pain 2011 HYDROCODONE-ACETAMINOPHEN 15260256722 No Longer Active Patri joan Perez RN Active BACTRIM DS 800-160 MG TAB 1 tab by mouth twice daily 2 TRIMETHOPRIM-SULFAMETHOXAZOLE 42874338604 No Longer Active Kalpesh Dong MD Active LORTAB 5 5-500 MG TABS 1/2 to 1 tablet by mouth go ry 4 hours as needed for pain HYDROCODONE-ACETAMINOPHEN 27093541426 No Longer Active Kalpesh Dong MD Active GENERESS FE 0.8-25 MG-MCG CHEW Take one by mouth daily NORETHIN-ETH ESTRADIOL-FE 72729978234 No Longer Active Kalpesh Dong MD Active HYDROCODONE-ACETAMINOPHEN 7.5-500 MG TABS 1-2 every 4 hours as needed HYDROCODONE-ACETAMINOPHEN 20264137933 No Longer Activ e Kalpesh Dong MD Active FERROUS SULFATE 325 (65 FE) MG TABS 1 tablet by mouth twice yung y FERROUS SULFATE 93948669255 No Longer Active Kalpesh Dong MD Active IBUPROFEN 600 MG TAB 1 po q6-8hr PRN IBUPROFEN 07440909994 No Longer Active Kalpesh Dong MD Active SPIRONOLACTONE 25 MG TAB 1 tablet by mouth daily 01/22 SPIRONOLACTONE 37660965125 No Longer Active Kalpesh Dong MD Acti ve HYDROCODONE-ACETAMINOPHEN 7.5-325 MG TABS 1 po QID PRN Pain 2011 HYDROCODONE-ACETAMINOPHEN 05280386369 No Longer Active Kalpesh Dong MD Active CLINDAMYCIN HCL 300 MG CAPS 1 po q6hr x 7 days CLINDAMYCIN HCL 90198796360 No Longer Active Edilberto Marino DO Active PREDNISONE 20 MG TAB 2 tabs daily for 4 days, 1 t ab daily for 4 days, 1/2 tab daily for 4 days PREDNISONE 58563708956 No Longer Active Edilberto Marino DO Active PERCOCET 5-325 MG TABS 1 tablet by mouth every 6 hours as ne eded for pain OXYCODONE-ACETAMINOPHEN 57210016855 No Longer Active Abdirahman Rios MD Active VITAMINS TABS Take one by mouth daily MV & MIN W/FE-FA TABS 99419105992 No Longer Active Abdirahman Rios MD Active LUIS 3-0.02 MG TABS 1 tablet by mouth daily as directed DROSPIRENONE-ETHINYL ESTRADIOL 34529795890 No Longer Active Abdirahman Rios MD Active LORATADINE 10 MG TABS 1 tablet by mouth daily L ORATADINE 77218607805 No Longer Active Kalpesh Dong MD Active HYDROCODONE-ACETAMINOPHEN 5-325 MG TABS 1 po q 6hr PRN Pain 2010 HYDROCODONE-ACETAMINOPHEN 07621406439 No Longer Active Edilberto Marino DO Active BACTRIM DS 800-160 MG TAB 1 tab by mouth twice daily 2 TRIMETHOPRIM-SULFAMETHOXAZOLE 50497229780 No Longer Active Abdirahman Rios MD Active 28-0.8 MG TABS Take one by mouth daily 09/20 VIT-FE FUMARATE-FA 52979613699 No Longer Active Abdirahman Rios MD Active CIPRO 500 MG TAB 1 tablet by mouth twice daily CIPROFLOXACIN HCL 99409299883 No Longer Active Abdirahman Rios MD Active BENADRYL 25 MG CAP 1 po q8hr PRN Congestion DIPHENHYDRAMINE HCL 64752744951 No Longer Active Abdirahman Rios MD Active ZOLOFT 50 MG TAB 1 po qd SERTRALINE HCL 659943 44659 No Longer Active Abdirahman Rios MD Active AMOXICILLIN 875 MG TABS 1 tab by mouth twice daily 201 08/09/13 AMOXICILLIN 11128606864 No Longer Active Abdirahman Rios MD Activ e AMOXICILLIN 875 MG TABS 1 tab by mouth twice daily 201 07/19/27 AMOXICILLIN 97788492602 No Longer Active Abdirahman Rios MD Activ e BACTRIM DS 800-160 MG TAB 2 tab by mouth twice daily 2 TRIMETHOPRIM-SULFAMETHOXAZOLE 40068066135 No Longer Active Abdirahman Rios MD Active KEFLEX 500 MG CAP 1 po tid x 10 days CEPHALEXIN 46618340103 No Longer Active Abdirahman Rios MD Active AMOXICILLIN 875 MG TABS 1 tab by mouth twice daily 201 07/18/07 AMOXICILLIN 11277417754 No Longer Active Abdirahman Rios MD Activ e BACTRIM DS 800-160 MG TAB 2 tab by mouth twice daily 2 BACTRIM DS 800-160 MG TAB TRIMETHOPRIM-SULFAMETHOXAZOLE Inactive ZOLOFT 50 MG TAB 1 po qd ZOLOFT 50 MG TAB 3129 41 SERTRALINE HCL Inactive BENADRYL 25 MG CAP 1 po q8hr PRN Congestion BENADRYL 25 MG CAP 9967491 DIPHENHYDRAMINE HCL Inactive 28-0.8 MG TABS Take one by mouth daily 09/20 28-0.8 MG TABS VIT-FE FUMARATE-FA Inactive HYDROCODONE-ACETAMINOPHEN 5-325 MG TABS 1 po q 6hr PRN Pain 2010 HYDROCODONE-ACETAMINOPHEN 5-325 MG TABS 496926 HYDROCODONE-ACETAMINOPHEN Inactive LORATADINE 10 MG TABS 1 tablet by mouth daily LORATADINE 10 MG TABS 232589 LORATADINE Inactive LUIS 3-0.02 MG TABS 1 tablet by mouth daily as directed LUIS 3-0.02 MG TABS DROSPIRENONE-ETHINYL ESTRADIOL Inactive VITAMINS TABS Take one by mouth daily VITAMINS TABS MV & MIN W/FE-FA TABS Inactive PERCOCET 5-325 MG TABS 1 tablet by mouth every 6 hours as ne eded for pain PERCOCET 5-325 MG TABS 2990920 OXYCODONE-ACETAMIN OPHEN Inactive PREDNISONE 20 MG TAB 2 tabs daily for 4 days, 1 t ab daily for 4 days, 1/2 tab daily for 4 days PREDNISONE 20 MG TAB 466092 PREDNISON E Inactive CLINDAMYCIN HCL 300 MG CAPS 1 po q6hr x 7 days CLINDAMYCIN HCL 300 MG CAPS 808776 CLINDAMYCIN HCL Inactive HYDROCODONE-ACETAMINOPHEN 7.5-325 MG TABS 1 po QID PRN Pain 2011 HYDROCODONE-ACETAMINOPHEN 7.5-325 MG TABS 792975 HYDROCODONE-ACETAMINOPHEN Inactive SPIRONOLACTONE 25 MG TAB 1 tablet by mouth daily 01/22 SPIRONOLACTONE 25 MG TAB 519521 SPIRONOLACTONE Inactive IBUPROFEN 600 MG TAB 1 po q6-8hr PRN IBUPROFEN 600 MG TAB 211040 IBUPROFEN Inactive FERROUS SULFATE 325 (65 FE) MG TABS 1 tablet by mouth twice yung y FERROUS SULFATE 325 (65 FE) MG TABS 297022 FERROUS SULF ATE Inactive HYDROCODONE-ACETAMINOPHEN 7.5-500 MG [...] PRN Pain 2011 HYDROCODONE-ACETAMINOPHEN 5-325 MG TABS 225950 HYDROCODONE-ACETAMINOPHEN Inactive DOXYCYCLINE HYCLATE 100 MG CAPS Take one (1) tablet by mouth twice a day DOXYCYCLINE HYCLATE 100 MG CAPS 048201 DOXYCYCLINE HYCLATE Inactive PENICILLIN V POTASSIUM 500 MG TAB 1 four times a day 2 PENICILLIN V POTASSIUM 500 MG TAB 438624 PENICILLIN V POTASSIUM Siri ctive PRISTIQ 50 MG [id number] 1 po qd PRISTIQ 50 MG [id number] DESVENLAFAXINE SUCCINATE Inactive TYLENOL/CODEINE #3 300-30 MG TAB 1-2 po q6hr PRN Pain TYLENOL/CODEINE #3 300-30 MG TAB 134759 ACETAMINOPHEN-CODEINE Inact krishna CEPHALEXIN 500 MG TABS Take one by mouth four times daily, morning, noon, early evening and bedtime. CEPHALEXIN 500 MG TABS 447942 CEPHALEXIN Inactive LORTAB 5 5-500 MG TABS 1/2 to 1 tablet by mouth go ry 6 hours as needed for pain LORTAB 5 5-500 MG TABS HYDROCODONE-A CETAMINOPHEN Inactive AMITRIPTYLINE HCL 25 MG TAB 1 tab by mouth daily 60 minutes before bedtime AMITRIPTYLINE HCL 25 MG TAB 519519 AMITRIPTYLINE HCL Inactive AMOXICILLIN 500 MG TABS 2 tabs PO bid x 10 d 7 AMOXICILLIN 500 MG TABS 308919 AMOXICILLIN Inactive IMPLANON 68 MG IMPL IMPLANTED IN LEFT ARM IMPLANON 68 MG IMPL ETONOGESTREL Inactive HYDROCODONE-ACETAMINOPHEN 5-325 MG TABS 1 PO tid PRN pain 5 HYDROCODONE-ACETAMINOPHEN 5-325 MG TABS 511862 HYDROCODONE-ACETAMIN OPHEN Inactive BACTRIM DS 800-160 MG TAB 1 tab by mouth twice daily 2 BACTRIM DS 800-160 MG TAB TRIMETHOPRIM-SULFAMETHOXAZOLE Inac tive CEPHALEXIN 500 MG CAPS 1 PO bid x 7 days CEPHALEXIN 500 MG CAPS 953391 CEPHALEXIN Inactive HYDROCODONE-ACETAMINOPHEN 5-325 MG TABS 1 tab by mouth every 6 hours as needed HYDROCODONE-ACETAMINOPHEN 5-325 MG TABS 115359 HYDROCODONE-ACETAMINOPHEN Inactive PROMETHAZINE-CODEINE 6.25-10 MG/5ML SYRP 1 tsp every 6 hrs prn c ough PROMETHAZINE-CODEINE 6.25-10 MG/5ML SYRP 524450 PROMETH AZINE-CODEINE Inactive IBUPROFEN 800 MG TAB 1 pill three times daily as needed for pain IBUPROFEN 800 MG TAB 127715 IBUPROFEN Inactive KEFLEX 500 MG CAP 1 tab po tid KEFLEX 500 MG CAP 481363 CEPHALEXIN Inactive HYDROCODONE-ACETAMINOPHEN 7.5-325 MG TABS 1 four times a day as needed for pain HYDROCODONE-ACETAMINOPHEN 7.5-325 MG TABS 226562 HYDROCODONE-ACETAMINOPHEN Inactive BACTRIM DS 800-160 MG TABS by mouth twice a day 11/05 BACTRIM DS 800-160 MG TABS SULFAMETHOXAZOLE-TRIMETHOPRIM Inactive IBUPROFEN 800 MG TABS 1 tid prn IBUPROFEN 800 MG TABS 433390 IBUPROFEN Inactive ENDOCET 10-325 MG TABS 1 q 6 hr prn ENDOC ET 10-325 MG TABS 0673435 OXYCODONE-ACETAMINOPHEN Inactive HYDROCODONE-ACETAMINOPHEN 7.5-325 MG TABS 1 by mouth e very 6 hours as needed for pain HYDROCODONE-ACETAMINOPHEN 7.5-325 MG TABS 606201 HYDROCODONE-ACETAMINOPHEN Inactive PERCOCET 7.5-325 MG TABS 1 PO q 8 hrs PRN pain PERCOCET 7.5-325 MG TABS 8304263 OXYCODONE-ACETAMINOPHEN Inactive AMOXICILLIN 875 MG TABS 1 tab by mouth twice daily 201 07/18/07 AMOXICILLIN 875 MG TABS 110180 AMOXICILLIN Inactive KEFLEX 500 MG CAP 1 po tid x 10 days KEFLEX 500 MG CAP 608132 CEPHALEXIN Inactive AMOXICILLIN 875 MG TABS 1 tab by mouth twice daily 201 07/19/27 AMOXICILLIN 875 MG TABS 421903 AMOXICILLIN Inactive AMOXICILLIN 875 MG TABS 1 tab by mouth twice daily 201 08/09/13 AMOXICILLIN 875 MG TABS 187567 AMOXICILLIN Inactive CIPRO 500 MG TAB 1 tablet by mouth twice daily CIPRO 500 MG TAB 897208 CIPROFLOXACIN HCL Inactive BACTRIM DS 800-160 MG TAB 1 tab by mouth twice daily 2 BACTRIM DS 800-160 MG TAB TRIMETHOPRIM-SULFAMETHOXAZOLE Inac tive LEVAQUIN 500 MG TABS 1 PO q day x 7 days LEVAQUIN 500 MG TABS 114939 LEVOFLOXACIN Inactive CLINDAMYCIN HCL 300 MG CAPS 1 po QID x 7 days CLINDAMYCIN HCL 300 MG CAPS 054548 CLINDAMYCIN HCL Inactive Advance Directives Directive Description Start Date PERMISSION TO SHARE Immunizations Vaccine Administration Date Value Standard Alf cription Seasonal influenza vaccine, injectable, containing preservative, for > 3 years old (Afluria, FluLaval, Fluzone, Fluvirin, Fluarix, Agriflu(>= 18 yo)) Fluzone (>3 yrs.) [[id number]] Influenza, seasonal, inject able Seasonal influenza vaccine, injectable, preservative free, for > 3 years old (Afluria, FluLaval, Fluzone, Fluvirin, Fluarix, Agriflu(>= 18 yo)) Fluzone preservative free (>3 yrs.) [[id number]] Influenza, seasonal, injectable, preservative free Seasonal influenza vaccine, injectable, containing preservative, for > 3 years old (Afluria, FluLaval, Fluzone, Fluvirin, Fluarix, Agriflu(>= 18 yo)) Fluzone (>3 yrs.) [[id number]] Influenza, seasonal, inject able Seasonal influenza vaccine, injectable, containing preservative, for > 3 years old (Afluria, FluLaval, Fluzone, Fluvirin, Fluarix, Agriflu(>= 18 yo)) Fluzone (>3 yrs.) [[id number]] Influenza, seasonal, inject able dT (Diphtheria and [...] ... 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 Patient 19:34:46 CDT Shola MCGILL [facility] CPT-83540 Level 3 Est. Patient 14:19:37 CDT Abdirahman Rios MD [facility] CPT-59459 Level 3 Est. Patient 14:11:58 CDT Kalpesh goins MD [facility] CPT-04391 Level 3 Est. Patient 16:50:00 CDT Michelle MERCADO [facility] CPT-97283 Level 3 Est. Patient 17:11:32 EDUCATION DIRECTOR Brandie bates MD PhD [facility] CPT-97997 Level 3 Est. Patient 16:31:47 EDUCATION DIRECTOR Shola MCGILL [facility] CPT-23434 Level 3 Est. Patient 17:51:10 EDUCATION DIRECTOR Abhinav Galvan MD [facility] CPT-98094 Level 4 Est. Patient 12:54:56 EDUCATION DIRECTOR Kalpesh goins MD [facility]-67072 Level 4 Est. Patient 12:53:56 EDUCATION DIRECTOR Kalpesh goins MD [facility]-97433 Level 3 Est. Patient 17:56:58 CDT Shola Wright [facility] CPT-14627 Level 3 Est. Patient 14:26:20 CDT Janak butcher [facility] CPT-52935 Level 3 Est. Patient 09:38:41 CDT [facility] CPT-79039 Level 3 Est. Patient 14:45:26 CDT Edilberto tiwari [facility] CPT-36569 Level 3 Est. Patient 10:51:33 [facility] Patient 11:57:55 EDUCATION DIRECTOR Shola Houghsabi [facility] CPT-05587 Level 3 Est. Patient 09:53:33 EDUCATION DIRECTOR Edilberto tiwari [facility] CPT-28674 Level 3 Est. Patient 14:42:54 EDUCATION DIRECTOR Abhinav Galvan MD [facility]-14255 Level 3 Est. Patient 15:10:02 CDT Janak butcher [facility] CPT-14014 Level 3 Est. Patient 15:20:20 CDT Theo dennis MD [facility]-40161 Level 2 Est. Patient 14:08:57 CDT Kalpesh goins MD [facility]-89378 Level 3 Est. Patient 13:56:19 CDT Abdirahman Rios MD [facility] CPT-16632 Level 3 Est. Patient 13:59:37 CDT Abdirahman Rios MD [facility] CPT-12259 Level 2 Est. Patient 14:44:59 CDT Kalpesh goins MD [facility] CPT-00664 Level 3 Est. Patient 06:06:23 CDT Edilberto tiwari DO [facility] CPT-22355 Level 3 Est. Patient 15:23:54 CDT Abdirahman Rios MD [facility] CPT-57816 Level 3 Est. Patient 15:43:49 CDT Abdirahman Rios MD [facility] CPT-00718 Level 3 Est. Patient 12:46:47 EDUCATION DIRECTOR Abdirahman Rios MD [facility] CPT-00389 Level 3 Est. Patient 08:13:35 EDUCATION DIRECTOR Abdirahman Rios MD [facility] CPT-95324 Level 2 Est. Patient 09:36:42 EDUCATION DIRECTOR Abdirahman Rios MD [facility] CPT-65739 Level 3 Est. Patient 10:56:43 CDT Abdirahman Rios MD [facility] CPT-81987 Level 3 Est. Patient 18:24:52 CDT Abdirahman Rios MD [facility] CPT-61904 Level 3 Est. Patient 13:27:22 CDT Abdirahman Rios MD [facility] Procedures Code Procedure Name Date Entry Date Standard Desc ription CPT-11884 Immunization Single Admin 16:41:53 CDT 2013 CPT-39292 Fluzone Quadrivalent Intramuscular Suspe nsion 0.5 ML 16:41:53 CDT CPT-OV Office Visit 16:39:18 CDT CPT-OV Office Visit 16:16:36 CDT CPT-OV Office Visit 15:34:48 CDT CPT-46698 Postop F/U Visit 14:50:12 CDT CPT-44799 Postop F/U Visit 14:41:10 CDT CPT-43473 Venipuncture Draw Fee 11:38:04 EDUCATION DIRECTOR CPT-21844 Postop F/U Visit 19:02:59 EDUCATION DIRECTOR CPT-18100 Postop F/U Visit 12:04:54 EDUCATION DIRECTOR CPT-94163 Administration single or combination vac cine inc oral 15:56:43 CDT CPT-97716 Influenza split virus > age 3 15:56:43 CDT CPT-27872 Hand comp min 3V 14:25:19 CDT CPT-76881 Postop F/U Visit 21:40:51 CDT CPT-05473 Postop F/U Visit 10:58:43 CDT CPT-14581 Administration single or combination vac cine inc oral 12:33:54 EDUCATION DIRECTOR CPT-52595 Influenza Preservative Free split virus >age 3 12:33:54 EDUCATION DIRECTOR CPT-48026 Administration single or combination vac cine inc oral 09:30:51 CDT CPT-01018 Influenza split virus > age 3 09:30:51 CDT CPT-79158 Postop F/U Visit 15:14:53 CDT CPT-01382 Postop F/U Visit 13:50:14 CDT CPT-18545 Postop F/U Visit 13:34:52 CDT CPT-OV Office Visit 16:55:03 CDT CPT-17509 [place] of cervix w bx ECC 13:32:50 CDT 10/19 CPT-J1885 Toradol 60 mg (Ketorolac) 15:31:59 CDT 2011 CPT-J1885 Toradol 60 mg (Ketorolac) 15:23:54 CDT 2011 CPT-37943 Visit 11:34:37 EDUCATION DIRECTOR CPT-95804 Visit 10:52:39 EDUCATION DIRECTOR CPT-08795 Visit 10:12:02 EDUCATION DIRECTOR CPT-20813 Visit 11:22:43 EDUCATION DIRECTOR CPT-55948 Visit 11:24:12 EDUCATION DIRECTOR CPT-51694 Visit 10:47:05 EDUCATION DIRECTOR CPT-OV Office Visit 10:26:16 EDUCATION DIRECTOR CPT-OV Office Visit 15:34:31 EDUCATION DIRECTOR CPT-88286 Visit 10:42:08 EDUCATION DIRECTOR CPT-25197 Visit 10:52:45 EDUCATION DIRECTOR CPT-000 Give Appropriate Flu Vaccine 16:56:41 CDT 2 CPT-01477 Administration single or combination vac cine inc oral 10:33:21 CDT CPT-51431 Influenza split virus > age 3 10:33:21 CDT CPT-39097 Visit 13:23:09 CDT CPT-20145 Visit 18:24:52 CDT CPT-31991 Sono OB comp > 14 weeks 12:07:49 CDT 04/07
--- OUTSIDE RECORDS SUMMARY | 2020-01-18 17:19 | XMS REPORT | Clinical Summary ---
Author Author Admin, Jeri Rashid Organization [facility] Address Unknown Phone Unavailable Allergies, Adverse [...] 15 MG TABS 1 tab daily MELOXICAM [id number] Ac jason Julian MD Active PERCOCET 7.5-325 MG TABS 1 PO q 8 hrs PRN pain OXYCODONE-ACETAMINOPHEN 43780167926 No Longer Active Shola MCGILL Active HYDROCODONE-ACETAMINOPHEN 10-325 MG TABS 1 by mouth ev chaka 8 hours as needed for pain HYDROCODONE-ACETAMINOPHEN 31601445255 Active Shola MCGILL Active HYDROCODONE-ACETAMINOPHEN 7.5-325 MG TABS 1 by mouth e very 6 hours as needed for pain HYDROCODONE-ACETAMINOPHEN 19113103467 No Longer Active Good Julian MD Active LC-5 LIDOCAINE 5 % CREA apply 1 time daily to affected area LIDOCAINE (ANORECTAL) 84194666445 Active Shola MCGILL Active CLINDAMYCIN HCL 300 MG CAPS 1 po QID x 7 days CLINDAMYCIN HCL 13985979347 No Longer Active Abdirahman Rios MD Activ e BACTRIM DS 800-160 MG TABS 1 po BID x 7 days 5 SULFAMETHOXAZOLE-TRIMETHOPRIM 53360608161 No Longer Active Abdirahman Rios MD Active ENDOCET 10-325 MG TABS 1 q 6 hr prn OXYCODONE-ACETAMINOPHEN 26747729073 No Longer Active Abdirahman Rios MD Active IBUPROFEN 800 MG TABS 1 tid prn IBUPROFEN 780818 34995 No Longer Active Abdirahman Rios MD Active BACTRIM DS 800-160 MG TABS by mouth twice a day 11/05 SULFAMETHOXAZOLE-TRIMETHOPRIM 35756132131 No Longer Active Good Julian MD Active HYDROCODONE-ACETAMINOPHEN 7.5-325 MG TABS 1 four times a day as needed for pain HYDROCODONE-ACETAMINOPHEN 83044202636 No Longer Activ e Good Julian MD Active KEFLEX 500 MG CAP 1 tab po tid CEPHALEXIN 068233 51597 No Longer Active Hira Moser APRN Active IBUPROFEN 800 MG TAB 1 pill three times daily as needed for pain IBUPROFEN 51905570514 No Longer Active Kalpesh Dong MD Active PROMETHAZINE-CODEINE 6.25-10 MG/5ML SYRP 1 tsp every 6 hrs prn c ough PROMETHAZINE-CODEINE 75599164216 No Longer Active Kalpesh Carr Active ALPRAZOLAM 0.5 MG TABS 1 PO bid PRN ALPRAZOLAM 961010 92842 Active Shola MCGILL Active HYDROCODONE-ACETAMINOPHEN 5-325 MG TABS 1 tab by mouth every 6 hours as needed HYDROCODONE-ACETAMINOPHEN 89999470841 No Longer Activ e Shola MCGILL Active CEPHALEXIN 500 MG CAPS 1 PO bid x 7 days CEPHAL EXIN 07009903802 No Longer Active Shola MCGILL Active BACTRIM DS 800-160 MG TAB 1 tab by mouth twice daily 2 TRIMETHOPRIM-SULFAMETHOXAZOLE 62781170806 No Longer Active Kalpesh Dong MD Active HYDROCODONE-ACETAMINOPHEN 5-325 MG TABS 1 PO tid PRN pain 5 HYDROCODONE-ACETAMINOPHEN 76296770788 No Longer Active Abhinav Galvan MD Active IMPLANON 68 MG IMPL IMPLANTED IN LEFT ARM ETONO GESTREL 32976709209 No Longer Active Hira Moser BOX NAILER Active AMOXICILLIN 500 MG TABS 2 tabs PO bid x 10 d AM OXICILLIN 61569704421 No Longer Active Kalpesh Dong MD Active LEVAQUIN 500 MG TABS 1 PO q day x 7 days LEVOFL OXACIN 40186253390 No Longer Active Shola MCGILL Active PROAIR HFA 108 (90 BASE) MCG/ACT AERS 2 puff q 4-6 hrs PRN ALBUTEROL SULFATE 25970981740 Active Shola MCGILL Acti ve FIORICET 50-325-40 MG TABS 2 PO q 8 hrs PRN FOSTER [id number] Active Shola MCGILL Active AMITRIPTYLINE HCL 25 MG TAB 1 tab by mouth daily 60 minutes before bedtime AMITRIPTYLINE HCL 57947005853 No Longer Active Shola MCGILL Active LORTAB 5 5-500 MG TABS 1/2 to 1 tablet by mouth go ry 6 hours as needed for pain HYDROCODONE-ACETAMINOPHEN 73104536790 No Longer Active Shola MCGILL Active CEPHALEXIN 500 MG TABS Take one by mouth four times daily, morning, noon, early evening and bedtime. CEPHALEXIN 36272150799 No Long er Active Hira Moser BOX NAILER Active TYLENOL/CODEINE #3 300-30 MG TAB 1-2 po q6hr PRN Pain ACETAMINOPHEN-CODEINE 70168988933 No Longer Active Edilberto Marino DO Active PRISTIQ 50 MG [id number] 1 po qd DESVENLAFAXI NE SUCCINATE 39816967938 No Longer Active Edilberto Marino DO Active PENICILLIN V POTASSIUM 500 MG TAB 1 four times a day 2 PENICILLIN V POTASSIUM 16102283216 No Longer Active Edilberto Marino DO Active DOXYCYCLINE HYCLATE 100 MG CAPS Take one (1) tablet by mouth twice a day DOXYCYCLINE HYCLATE 14820188688 No Longer Active Ronnie Galvan MD Active HYDROCODONE-ACETAMINOPHEN 5-325 MG TABS 1 po q 6hr PRN Pain 2011 HYDROCODONE-ACETAMINOPHEN 38471741958 No Longer Active Patri joan Perez RN Active BACTRIM DS 800-160 MG TAB 1 tab by mouth twice daily 2 TRIMETHOPRIM-SULFAMETHOXAZOLE 09593068737 No Longer Active Kalpesh Dong MD Active LORTAB 5 5-500 MG TABS 1/2 to 1 tablet by mouth go ry 4 hours as needed for pain HYDROCODONE-ACETAMINOPHEN 67980146269 No Longer Active Kalpesh Dong MD Active GENERESS FE 0.8-25 MG-MCG CHEW Take one by mouth daily NORETHIN-ETH ESTRADIOL-FE 02938061890 No Longer Active Kalpesh Dong MD Active HYDROCODONE-ACETAMINOPHEN 7.5-500 MG TABS 1-2 every 4 hours as needed HYDROCODONE-ACETAMINOPHEN 20772037057 No Longer Activ e Kalpesh Dong MD Active FERROUS SULFATE 325 (65 FE) MG TABS 1 tablet by mouth twice yung y FERROUS SULFATE 77880121399 No Longer Active Kalpesh Dong MD Active IBUPROFEN 600 MG TAB 1 po q6-8hr PRN IBUPROFEN 89666614083 No Longer Active Kalpesh Dong MD Active SPIRONOLACTONE 25 MG TAB 1 tablet by mouth daily 01/22 SPIRONOLACTONE 34362280203 No Longer Active Kalpesh Dong MD Acti ve HYDROCODONE-ACETAMINOPHEN 7.5-325 MG TABS 1 po QID PRN Pain 2011 HYDROCODONE-ACETAMINOPHEN 28021207637 No Longer Active Kalpesh Dong MD Active CLINDAMYCIN HCL 300 MG CAPS 1 po q6hr x 7 days CLINDAMYCIN HCL 97412509092 No Longer Active Edilberto Marino DO Active PREDNISONE 20 MG TAB 2 tabs daily for 4 days, 1 t ab daily for 4 days, 1/2 tab daily for 4 days PREDNISONE 27286736991 No Longer Active Edilberto Marino DO Active PERCOCET 5-325 MG TABS 1 tablet by mouth every 6 hours as ne eded for pain OXYCODONE-ACETAMINOPHEN 92596492720 No Longer Active Abdirahman Rios MD Active VITAMINS TABS Take one by mouth daily MV & MIN W/FE-FA TABS 25263275464 No Longer Active Abdirahman Rios MD Active LUIS 3-0.02 MG TABS 1 tablet by mouth daily as directed DROSPIRENONE-ETHINYL ESTRADIOL 98120436282 No Longer Active Abdirahman Rios MD Active LORATADINE 10 MG TABS 1 tablet by mouth daily L ORATADINE 76050640672 No Longer Active Kalpesh Dong MD Active HYDROCODONE-ACETAMINOPHEN 5-325 MG TABS 1 po q 6hr PRN Pain 2010 HYDROCODONE-ACETAMINOPHEN 10583453103 No Longer Active Edilberto Marino DO Active BACTRIM DS 800-160 MG TAB 1 tab by mouth twice daily 2 TRIMETHOPRIM-SULFAMETHOXAZOLE 62495378152 No Longer Active Abdirahman Rios MD Active 28-0.8 MG TABS Take one by mouth daily 09/20 VIT-FE FUMARATE-FA 62534813315 No Longer Active Abdirahman Rios MD Active CIPRO 500 MG TAB 1 tablet by mouth twice daily CIPROFLOXACIN HCL 52986189886 No Longer Active Abdirahman Rios MD Active BENADRYL 25 MG CAP 1 po q8hr PRN Congestion DIPHENHYDRAMINE HCL 23211287401 No Longer Active Abdirahman Rios MD Active ZOLOFT 50 MG TAB 1 po qd SERTRALINE HCL 964811 40140 No Longer Active Abdirahman Rios MD Active AMOXICILLIN 875 MG TABS 1 tab by mouth twice daily 201 08/09/13 AMOXICILLIN 01431795070 No Longer Active Abdirahman Rios MD Activ e AMOXICILLIN 875 MG TABS 1 tab by mouth twice daily 201 07/19/27 AMOXICILLIN 18797327744 No Longer Active Abdirahman Rios MD Activ e BACTRIM DS 800-160 MG TAB 2 tab by mouth twice daily 2 TRIMETHOPRIM-SULFAMETHOXAZOLE 27297353243 No Longer Active Abdirahman Rios MD Active KEFLEX 500 MG CAP 1 po tid x 10 days CEPHALEXIN 60821848555 No Longer Active Abdirahman Rios MD Active AMOXICILLIN 875 MG TABS 1 tab by mouth twice daily 201 07/18/07 AMOXICILLIN 15518306623 No Longer Active Abdirahman Rios MD Activ e BACTRIM DS 800-160 MG TAB 2 tab by mouth twice daily 2 BACTRIM DS 800-160 MG TAB TRIMETHOPRIM-SULFAMETHOXAZOLE Inactive ZOLOFT 50 MG TAB 1 po qd ZOLOFT 50 MG TAB 3129 41 SERTRALINE HCL Inactive BENADRYL 25 MG CAP 1 po q8hr PRN Congestion BENADRYL 25 MG CAP 6289450 DIPHENHYDRAMINE HCL Inactive 28-0.8 MG TABS Take one by mouth daily 09/20 28-0.8 MG TABS VIT-FE FUMARATE-FA Inactive HYDROCODONE-ACETAMINOPHEN 5-325 MG TABS 1 po q 6hr PRN Pain 2010 HYDROCODONE-ACETAMINOPHEN 5-325 MG TABS 282723 HYDROCODONE-ACETAMINOPHEN Inactive LORATADINE 10 MG TABS 1 tablet by mouth daily LORATADINE 10 MG TABS 503299 LORATADINE Inactive LUIS 3-0.02 MG TABS 1 tablet by mouth daily as directed LUIS 3-0.02 MG TABS DROSPIRENONE-ETHINYL ESTRADIOL Inactive VITAMINS TABS Take one by mouth daily VITAMINS TABS MV & MIN W/FE-FA TABS Inactive PERCOCET 5-325 MG TABS 1 tablet by mouth every 6 hours as ne eded for pain PERCOCET 5-325 MG TABS 8975129 OXYCODONE-ACETAMIN OPHEN Inactive PREDNISONE 20 MG TAB 2 tabs daily for 4 days, 1 t ab daily for 4 days, 1/2 tab daily for 4 days PREDNISONE 20 MG TAB 933696 PREDNISON E Inactive CLINDAMYCIN HCL 300 MG CAPS 1 po q6hr x 7 days CLINDAMYCIN HCL 300 MG CAPS 219749 CLINDAMYCIN HCL Inactive HYDROCODONE-ACETAMINOPHEN 7.5-325 MG TABS 1 po QID PRN Pain 2011 HYDROCODONE-ACETAMINOPHEN 7.5-325 MG TABS 878655 HYDROCODONE-ACETAMINOPHEN Inactive SPIRONOLACTONE 25 MG TAB 1 tablet by mouth daily 01/22 SPIRONOLACTONE 25 MG TAB 840918 SPIRONOLACTONE Inactive IBUPROFEN 600 MG TAB 1 po q6-8hr PRN IBUPROFEN 600 MG TAB 722914 IBUPROFEN Inactive FERROUS SULFATE 325 (65 FE) MG TABS 1 tablet by mouth twice yung y FERROUS SULFATE 325 (65 FE) MG TABS 993859 FERROUS SULF ATE Inactive HYDROCODONE-ACETAMINOPHEN 7.5-500 MG [...] PRN Pain 2011 HYDROCODONE-ACETAMINOPHEN 5-325 MG TABS 497334 HYDROCODONE-ACETAMINOPHEN Inactive DOXYCYCLINE HYCLATE 100 MG CAPS Take one (1) tablet by mouth twice a day DOXYCYCLINE HYCLATE 100 MG CAPS 304126 DOXYCYCLINE HYCLATE Inactive PENICILLIN V POTASSIUM 500 MG TAB 1 four times a day 2 PENICILLIN V POTASSIUM 500 MG TAB 711400 PENICILLIN V POTASSIUM [place] ctive PRISTIQ 50 MG [id number] 1 po qd PRISTIQ 50 MG [id number] DESVENLAFAXINE SUCCINATE Inactive TYLENOL/CODEINE #3 300-30 MG TAB 1-2 po q6hr PRN Pain TYLENOL/CODEINE #3 300-30 MG TAB 516910 ACETAMINOPHEN-CODEINE Inact krishna CEPHALEXIN 500 MG TABS Take one by mouth four times daily, morning, noon, early evening and bedtime. CEPHALEXIN 500 MG TABS 569836 CEPHALEXIN Inactive LORTAB 5 5-500 MG TABS 1/2 to 1 tablet by mouth go ry 6 hours as needed for pain LORTAB 5 5-500 MG TABS HYDROCODONE-A CETAMINOPHEN Inactive AMITRIPTYLINE HCL 25 MG TAB 1 tab by mouth daily 60 minutes before bedtime AMITRIPTYLINE HCL 25 MG TAB 201148 AMITRIPTYLINE HCL Inactive AMOXICILLIN 500 MG TABS 2 tabs PO bid x 10 d 7 AMOXICILLIN 500 MG TABS 202966 AMOXICILLIN Inactive IMPLANON 68 MG IMPL IMPLANTED IN LEFT ARM IMPLANON 68 MG IMPL ETONOGESTREL Inactive HYDROCODONE-ACETAMINOPHEN 5-325 MG TABS 1 PO tid PRN pain 5 HYDROCODONE-ACETAMINOPHEN 5-325 MG TABS 106208 HYDROCODONE-ACETAMIN OPHEN Inactive BACTRIM DS 800-160 MG TAB 1 tab by mouth twice daily 2 BACTRIM DS 800-160 MG TAB TRIMETHOPRIM-SULFAMETHOXAZOLE Inac tive CEPHALEXIN 500 MG CAPS 1 PO bid x 7 days CEPHALEXIN 500 MG CAPS 620491 CEPHALEXIN Inactive HYDROCODONE-ACETAMINOPHEN 5-325 MG TABS 1 tab by mouth every 6 hours as needed HYDROCODONE-ACETAMINOPHEN 5-325 MG TABS 613771 HYDROCODONE-ACETAMINOPHEN Inactive PROMETHAZINE-CODEINE 6.25-10 MG/5ML SYRP 1 tsp every 6 hrs prn c ough PROMETHAZINE-CODEINE 6.25-10 MG/5ML SYRP 447784 PROMETH AZINE-CODEINE Inactive IBUPROFEN 800 MG TAB 1 pill three times daily as needed for pain IBUPROFEN 800 MG TAB 813367 IBUPROFEN Inactive KEFLEX 500 MG CAP 1 tab po tid KEFLEX 500 MG CAP 795844 CEPHALEXIN Inactive HYDROCODONE-ACETAMINOPHEN 7.5-325 MG TABS 1 four times a day as needed for pain HYDROCODONE-ACETAMINOPHEN 7.5-325 MG TABS 288381 HYDROCODONE-ACETAMINOPHEN Inactive BACTRIM DS 800-160 MG TABS by mouth twice a day 11/05 BACTRIM DS 800-160 MG TABS SULFAMETHOXAZOLE-TRIMETHOPRIM Inactive IBUPROFEN 800 MG TABS 1 tid prn IBUPROFEN 800 MG TABS 615463 IBUPROFEN Inactive ENDOCET 10-325 MG TABS 1 q 6 hr prn ENDOC ET 10-325 MG TABS 1019377 OXYCODONE-ACETAMINOPHEN Inactive HYDROCODONE-ACETAMINOPHEN 7.5-325 MG TABS 1 by mouth e very 6 hours as needed for pain HYDROCODONE-ACETAMINOPHEN 7.5-325 MG TABS 489814 HYDROCODONE-ACETAMINOPHEN Inactive PERCOCET 7.5-325 MG TABS 1 PO q 8 hrs PRN pain PERCOCET 7.5-325 MG TABS 5881488 OXYCODONE-ACETAMINOPHEN Inactive AMOXICILLIN 875 MG TABS 1 tab by mouth twice daily 201 07/18/07 AMOXICILLIN 875 MG TABS 526103 AMOXICILLIN Inactive KEFLEX 500 MG CAP 1 po tid x 10 days KEFLEX 500 MG CAP 728245 CEPHALEXIN Inactive AMOXICILLIN 875 MG TABS 1 tab by mouth twice daily 201 07/19/27 AMOXICILLIN 875 MG TABS 648176 AMOXICILLIN Inactive AMOXICILLIN 875 MG TABS 1 tab by mouth twice daily 201 08/09/13 AMOXICILLIN 875 MG TABS 940665 AMOXICILLIN Inactive CIPRO 500 MG TAB 1 tablet by mouth twice daily CIPRO 500 MG TAB 065508 CIPROFLOXACIN HCL Inactive BACTRIM DS 800-160 MG TAB 1 tab by mouth twice daily 2 BACTRIM DS 800-160 MG TAB TRIMETHOPRIM-SULFAMETHOXAZOLE Inac tive LEVAQUIN 500 MG TABS 1 PO q day x 7 days LEVAQUIN 500 MG TABS 213503 LEVOFLOXACIN Inactive CLINDAMYCIN HCL 300 MG CAPS 1 po QID x 7 days CLINDAMYCIN HCL 300 MG CAPS 570655 CLINDAMYCIN HCL Inactive Advance Directives Directive Description Start Date PERMISSION TO SHARE Immunizations Vaccine Administration Date Value Standard Alf cription Seasonal influenza vaccine, injectable, containing preservative, for > 3 years old (Afluria, FluLaval, Fluzone, Fluvirin, Fluarix, Agriflu(>= 18 yo)) Fluzone (>3 yrs.) [[id number]] Influenza, seasonal, inject able Seasonal influenza vaccine, injectable, preservative free, for > 3 years old (Afluria, FluLaval, Fluzone, Fluvirin, Fluarix, Agriflu(>= 18 yo)) Fluzone preservative free (>3 yrs.) [[id number]] Influenza, seasonal, injectable, preservative free Seasonal influenza vaccine, injectable, containing preservative, for > 3 years old (Afluria, FluLaval, Fluzone, Fluvirin, Fluarix, Agriflu(>= 18 yo)) Fluzone (>3 yrs.) [[id number]] Influenza, seasonal, inject able Seasonal influenza vaccine, injectable, containing preservative, for > 3 years old (Afluria, FluLaval, Fluzone, Fluvirin, Fluarix, Agriflu(>= 18 yo)) Fluzone (>3 yrs.) [[id number]] Influenza, seasonal, inject able dT (Diphtheria and [...] ... - Chemistry sodium, serum 140 mmol/L 256-298 9726/02/24 potassium, serum 4.3 mmol/L 3.5-5.2 chloride, serum [...] 4.3-6.0 Lab Report: T3, TOTAL, INSULIN - Nuclear Medicine Tech ry triiodothyronine, serum 78 ng/dL 76-181 Lab [...] mg/dL Encounters Code Encounter Date Provider Facility CPT-77819 Level 3 Est. Patient 19:34:46 CDT Shola MCGILL [facility] CPT-64800 Level 3 Est. Patient 14:19:37 CDT Abdirahman Rios MD [facility] CPT-04628 Level 3 Est. Patient 14:11:58 CDT Kalpesh goins MD [facility] CPT-11465 Level 3 Est. Patient 16:50:00 CDT Michelle MERCADO [facility] CPT-10401 Level 3 Est. Patient 17:11:32 INSEAM TRIMMING MACHINE OPERATOR Brandie bates MD PhD [facility] CPT-42452 Level 3 Est. Patient 16:31:47 INSEAM TRIMMING MACHINE OPERATOR Shola Wright [facility] CPT-82218 Level 3 Est. Patient 17:51:10 INSEAM TRIMMING MACHINE OPERATOR Abhinav Galvan MD [facility] CPT-25067 Level 4 Est. Patient 12:54:56 INSEAM TRIMMING MACHINE OPERATOR Kalpesh goins MD [facility]-96954 Level 4 Est. Patient 12:53:56 INSEAM TRIMMING MACHINE OPERATOR Kalpesh goins MD [facility] CPT-85686 Level 3 Est. Patient 17:56:58 CDT Shola Keesha Francesabi [facility] CPT-70388 Level 3 Est. Patient 14:26:20 CDT Janak Dominguez [facility] CPT-23409 Level 3 Est. Patient 09:38:41 CDT Shola Wright [facility] CPT-78989 Level 3 Est. Patient 14:45:26 CDT Edilberto tiwari [facility] CPT-26905 Level 3 Est. Patient 10:51:33 CDT Hira muniz [facility] CPT-37282 Level 3 Est. Patient 11:57:55 INSEAM TRIMMING MACHINE OPERATOR Shola Wright [facility] CPT-56393 Level 3 Est. Patient 09:53:33 INSEAM TRIMMING MACHINE OPERATOR Edilberto tiwari [facility] CPT-78504 Level 3 Est. Patient 14:42:54 INSEAM TRIMMING MACHINE OPERATOR Abhinav Galvan MD [facility]-04088 Level 3 Est. Patient 15:10:02 CDT Janak butcher [facility] CPT-51917 Level 3 Est. Patient 15:20:20 CDT Theo dennis MD [facility] CPT-17587 Level 2 Est. Patient 14:08:57 CDT Kalpesh goins MD [facility] CPT-65967 Level 3 Est. Patient 13:56:19 CDT Abdirahman Rios MD [facility] CPT-47956 Level 3 Est. Patient 13:59:37 CDT Abdirahman Rios MD [facility] CPT-13534 Level 2 Est. Patient 14:44:59 CDT Kalpesh goins MD [facility] CPT-58734 Level 3 Est. Patient 06:06:23 CDT Edilberto tiwari DO [facility] CPT-12132 Level 3 Est. Patient 15:23:54 CDT Abdirahman Rios MD [facility] CPT-54530 Level 3 Est. Patient 15:43:49 CDT Abdirahman Rios MD [facility] CPT-31003 Level 3 Est. Patient 12:46:47 INSEAM TRIMMING MACHINE OPERATOR Abdirahman Rios MD [facility] CPT-09880 Level 3 Est. Patient 08:13:35 INSEAM TRIMMING MACHINE OPERATOR Abdirahman Rios MD [facility] CPT-79966 Level 2 Est. Patient 09:36:42 INSEAM TRIMMING MACHINE OPERATOR Abdirahman Rios MD [facility] CPT-52471 Level 3 Est. Patient 10:56:43 CDT Abdirahman Rios MD [facility] CPT-35979 Level 3 Est. Patient 18:24:52 CDT Abdirahman Rios MD [facility] CPT-26623 Level 3 Est. Patient 13:27:22 CDT Abdirahman Rios MD [facility] Procedures Code Procedure Name Date Entry Date Standard Desc ription CPT-90445 Immunization Single Admin 16:41:53 CDT 2013 CPT-34710 Fluzone Quadrivalent Intramuscular Suspe nsion 0.5 ML 16:41:53 CDT CPT-OV Office Visit 16:39:18 CDT CPT-OV Office Visit 16:16:36 CDT CPT-OV Office Visit 15:34:48 CDT CPT-17311 Postop F/U Visit 14:50:12 CDT CPT-19091 Postop F/U Visit 14:41:10 CDT CPT-49249 Venipuncture Draw Fee 11:38:04 INSEAM TRIMMING MACHINE OPERATOR CPT-17584 Postop F/U Visit 19:02:59 INSEAM TRIMMING MACHINE OPERATOR CPT-28214 Postop F/U Visit 12:04:54 INSEAM TRIMMING MACHINE OPERATOR CPT-39714 Administration single or combination vac cine inc oral 15:56:43 CDT CPT-09390 Influenza split virus > age 3 15:56:43 CDT CPT-66682 Hand comp min 3V 14:25:19 CDT CPT-65113 Postop F/U Visit 21:40:51 CDT CPT-77580 Postop F/U Visit 10:58:43 CDT CPT-59641 Administration single or combination vac cine inc oral 12:33:54 INSEAM TRIMMING MACHINE OPERATOR CPT-51529 Influenza Preservative Free split virus >age 3 12:33:54 INSEAM TRIMMING MACHINE OPERATOR CPT-42236 Administration single or combination vac cine inc oral 09:30:51 CDT CPT-73622 Influenza split virus > age 3 09:30:51 CDT CPT-76087 Postop F/U Visit 15:14:53 CDT CPT-34462 Postop F/U Visit 13:50:14 CDT CPT-10802 Postop F/U Visit 13:34:52 CDT CPT-OV Office Visit 16:55:03 CDT CPT-52993 [place] of cervix w bx ECC 13:32:50 CDT 10/19 CPT-J1885 Toradol 60 mg (Ketorolac) 15:31:59 CDT 2011 CPT-J1885 Toradol 60 mg (Ketorolac) 15:23:54 CDT 2011 CPT-18986 Visit 11:34:37 INSEAM TRIMMING MACHINE OPERATOR CPT-50252 Visit 10:52:39 INSEAM TRIMMING MACHINE OPERATOR CPT-20484 Visit 10:12:02 INSEAM TRIMMING MACHINE OPERATOR CPT-48892 Visit 11:22:43 INSEAM TRIMMING MACHINE OPERATOR CPT-62486 Visit 11:24:12 INSEAM TRIMMING MACHINE OPERATOR CPT-37210 Visit 10:47:05 INSEAM TRIMMING MACHINE OPERATOR CPT-OV Office Visit 10:26:16 INSEAM TRIMMING MACHINE OPERATOR CPT-OV Office Visit 15:34:31 INSEAM TRIMMING MACHINE OPERATOR CPT-65311 Visit 10:42:08 INSEAM TRIMMING MACHINE OPERATOR CPT-10252 Visit 10:52:45 INSEAM TRIMMING MACHINE OPERATOR CPT-000 Give Appropriate Flu Vaccine 16:56:41 CDT 2 CPT-51370 Administration single or combination vac cine inc oral 10:33:21 CDT CPT-00172 Influenza split virus > age 3 10:33:21 CDT CPT-11693 Visit 13:23:09 CDT CPT-45785 Visit 18:24:52 CDT CPT-58261 Sono OB comp > 14 weeks 12:07:49 CDT 04/07
--- OUTSIDE RECORDS SUMMARY | 2020-01-18 17:19 | XMS REPORT | Clinical Summary ---
Author Author Avery, Jeri Rashid Organization [facility] Address Unknown Phone [...] ACUTE OR CHRONIC 490 Re solved Abdirahman Rois MD Bronchitis, not specified as acute or [...] 461.9 Active Abdirahman Carr Acute sinusitis, unspecified , INCIDENTAL PROBLEM ICD-V22.2 Inacti ve [...] Generic Name NDC Status Provider Patient Instruction DIFLUCAN 150 MG TAB 1 qODay x 2 doses FLUCONAZO LE [id number] Active Jillina Frazell GERIATRICS PHYSICIAN Active CYCLOBENZAPRINE HCL 10 MG TABS 1/2 - 1 tab PO tid PRN back p ain, muscle spasm CYCLOBENZAPRINE HCL 65694627410 No Longer Active Karen siri Frazell GERIATRICS PHYSICIAN Active AUGMENTIN 875-125 MG TAB 1 tab by mouth twice daily with food 20 22/05/07 AMOXICILLIN-POT CLAVULANATE 14050037229 No Longer Active Loida Rios MD Active LORATADINE 10 MG TABS 1 tablet by mouth daily L ORATADINE 65302509742 Active Abdirahman Rios MD Active MOBIC 15 MG TABS 1 tab daily MELOXICAM 242564310 14 No Longer Active Abdirahman Rios MD Active PERCOCET 7.5-325 MG TABS 1 PO tid PRN pain OXYCODONE-ACETAMINOPHEN 37571618781 No Longer Active Abdirahman Rios MD Active LIDODERM 5 % PTCH One patch to painful area [place] N. On for 12 hrs, off for 12 hrs. LIDOCAINE 62241067679 No Longer Active Abdirahman Rios MD Active PERCOCET 7.5-325 MG TABS 1 PO q 8 hrs PRN pain OXYCODONE-ACETAMINOPHEN 53468579714 No Longer Active Shola MCGILL Active HYDROCODONE-ACETAMINOPHEN 10-325 MG TABS 1 by mouth ev chaka 8 hours as needed for pain HYDROCODONE-ACETAMINOPHEN 68137513135 Active Shola MCGILL Active HYDROCODONE-ACETAMINOPHEN 7.5-325 MG TABS 1 by mouth e very 6 hours as needed for pain HYDROCODONE-ACETAMINOPHEN 94894912259 No Longer Active Good Julian MD Active LC-5 LIDOCAINE 5 % CREA apply 1 time daily to affected area LIDOCAINE (ANORECTAL) 56825460958 Active Shola MCGILL Active CLINDAMYCIN HCL 300 MG CAPS 1 po QID x 7 days CLINDAMYCIN HCL 50183784070 No Longer Active Abdirahman Rios MD Activ e BACTRIM DS 800-160 MG TABS 1 po BID x 7 days 5 SULFAMETHOXAZOLE-TRIMETHOPRIM 44531185973 No Longer Active Abdirahman Rios MD Active ENDOCET 10-325 MG TABS 1 q 6 hr prn OXYCODONE-ACETAMINOPHEN 26220288193 No Longer Active Abdirahman Rios MD Active IBUPROFEN 800 MG TABS 1 tid prn IBUPROFEN 189060 19589 No Longer Active Abdirahman Rios MD Active BACTRIM DS 800-160 MG TABS by mouth twice a day 11/05 SULFAMETHOXAZOLE-TRIMETHOPRIM 37652796122 No Longer Active Good Julian MD Active HYDROCODONE-ACETAMINOPHEN 7.5-325 MG TABS 1 four times a day as needed for pain HYDROCODONE-ACETAMINOPHEN 11709747226 No Longer Activ e Good Julian MD Active KEFLEX 500 MG CAP 1 tab po tid CEPHALEXIN 099419 60765 No Longer Active Jielias Moser GERIATRICS PHYSICIAN Active IBUPROFEN 800 MG TAB 1 pill three times daily as needed for pain IBUPROFEN 84671983854 No Longer Active Kalpesh Dong MD Active PROMETHAZINE-CODEINE 6.25-10 MG/5ML SYRP 1 tsp every 6 hrs prn c ough PROMETHAZINE-CODEINE 08583530152 No Longer Active Kalpesh Carr Active ALPRAZOLAM 0.5 MG TABS 1 PO bid PRN ALPRAZOLAM 178690 34008 Active Edilberto Marino DO Active HYDROCODONE-ACETAMINOPHEN 5-325 MG TABS 1 tab by mouth every 6 hours as needed HYDROCODONE-ACETAMINOPHEN 77538745658 No Longer Activ e Shola MCGILL Active CEPHALEXIN 500 MG CAPS 1 PO bid x 7 days CEPHAL EXIN 65453730536 No Longer Active Shola MCGILL Active BACTRIM DS 800-160 MG TAB 1 tab by mouth twice daily 2 TRIMETHOPRIM-SULFAMETHOXAZOLE 44616159365 No Longer Active Kalpesh Dong MD Active HYDROCODONE-ACETAMINOPHEN 5-325 MG TABS 1 PO tid PRN pain 5 HYDROCODONE-ACETAMINOPHEN 06216009929 No Longer Active Abhinav Galvan MD Active IMPLANON 68 MG IMPL IMPLANTED IN LEFT ARM ETONO GESTREL 27167195819 No Longer Active Hira Moser APRN Active AMOXICILLIN 500 MG TABS 2 tabs PO bid x 10 d AM OXICILLIN 37603811212 No Longer Active Kalpesh Dong MD Active LEVAQUIN 500 MG TABS 1 PO q day x 7 days LEVOFL OXACIN 68465993998 No Longer Active Shola MCGILL Active PROAIR HFA 108 (90 BASE) MCG/ACT AERS 2 puff q 4-6 hrs PRN ALBUTEROL SULFATE 45331471956 Active Edilberto Marino DO Active FIORICET 50-325-40 MG TABS 2 PO q 8 hrs PRN FOSTER [id number] Active Shola MCGILL Active AMITRIPTYLINE HCL 25 MG TAB 1 tab by mouth daily 60 minutes before bedtime AMITRIPTYLINE HCL 42786776276 No Longer Active Shola MCGILL Active LORTAB 5 5-500 MG TABS 1/2 to 1 tablet by mouth go ry 6 hours as needed for pain HYDROCODONE-ACETAMINOPHEN 41765723122 No Longer Active Shola MCGILL Active CEPHALEXIN 500 MG TABS Take one by mouth four times daily, morning, noon, early evening and bedtime. CEPHALEXIN 63992283432 No Long er Active Hira Moser APRN Active TYLENOL/CODEINE #3 300-30 MG TAB 1-2 po q6hr PRN Pain ACETAMINOPHEN-CODEINE 56215385965 No Longer Active Edilberto Marino DO Active PRISTIQ 50 MG [id number] 1 po qd DESVENLAFAXI NE SUCCINATE 96140349767 No Longer Active Edilberto Marino DO Active PENICILLIN V POTASSIUM 500 MG TAB 1 four times a day 2 PENICILLIN V POTASSIUM 34698547864 No Longer Active Edilberto Marino DO Active DOXYCYCLINE HYCLATE 100 MG CAPS Take one (1) tablet by mouth twice a day DOXYCYCLINE HYCLATE 91408820416 No Longer Active Ronnie Galvan MD Active HYDROCODONE-ACETAMINOPHEN 5-325 MG TABS 1 po q 6hr PRN Pain 2011 HYDROCODONE-ACETAMINOPHEN 34761436523 No Longer Active Patri joan Perez RN Active BACTRIM DS 800-160 MG TAB 1 tab by mouth twice daily 2 TRIMETHOPRIM-SULFAMETHOXAZOLE 26017982979 No Longer Active Kalpesh Dong MD Active LORTAB 5 5-500 MG TABS 1/2 to 1 tablet by mouth go ry 4 hours as needed for pain HYDROCODONE-ACETAMINOPHEN 54707286271 No Longer Active Kalpesh Dong MD Active GENERESS FE 0.8-25 MG-MCG CHEW Take one by mouth daily NORETHIN-ETH ESTRADIOL-FE 75275000448 No Longer Active Kalpesh Dong MD Active HYDROCODONE-ACETAMINOPHEN 7.5-500 MG TABS 1-2 every 4 hours as needed HYDROCODONE-ACETAMINOPHEN 41260047498 No Longer Activ e Kalpesh Dong MD Active FERROUS SULFATE 325 (65 FE) MG TABS 1 tablet by mouth twice yung y FERROUS SULFATE 54612461036 No Longer Active Kalpesh Dong MD Active IBUPROFEN 600 MG TAB 1 po q6-8hr PRN IBUPROFEN 49896701622 No Longer Active Kalpesh Dong MD Active SPIRONOLACTONE 25 MG TAB 1 tablet by mouth daily 01/22 SPIRONOLACTONE 08781494361 No Longer Active Kalpesh Dong MD Acti ve HYDROCODONE-ACETAMINOPHEN 7.5-325 MG TABS 1 po QID PRN Pain 2011 HYDROCODONE-ACETAMINOPHEN 90064282179 No Longer Active Kalpesh Dong MD Active CLINDAMYCIN HCL 300 MG CAPS 1 po q6hr x 7 days CLINDAMYCIN HCL 33331682821 No Longer Active Edilberto Marino DO Active PREDNISONE 20 MG TAB 2 tabs daily for 4 days, 1 t ab daily for 4 days, 1/2 tab daily for 4 days PREDNISONE 43986335455 No Longer Active Edilberto Marino DO Active PERCOCET 5-325 MG TABS 1 tablet by mouth every 6 hours as ne eded for pain OXYCODONE-ACETAMINOPHEN 91044532181 No Longer Active Abdirahman Rios MD Active VITAMINS TABS Take one by mouth daily MV & MIN W/FE-FA TABS 20096230004 No Longer Active Abdirahman Rios MD Active LUIS 3-0.02 MG TABS 1 tablet by mouth daily as directed DROSPIRENONE-ETHINYL ESTRADIOL 62061245493 No Longer Active Abdirahman Rios MD Active LORATADINE 10 MG TABS 1 tablet by mouth daily L ORATADINE 43507955623 No Longer Active Kalpesh Dong MD Active HYDROCODONE-ACETAMINOPHEN 5-325 MG TABS 1 po q 6hr PRN Pain 2010 HYDROCODONE-ACETAMINOPHEN 19021356328 No Longer Active Edilberto Marino DO Active BACTRIM DS 800-160 MG TAB 1 tab by mouth twice daily 2 TRIMETHOPRIM-SULFAMETHOXAZOLE 07431576654 No Longer Active Abdirahman Rios MD Active 28-0.8 MG TABS Take one by mouth daily 09/20 VIT-FE FUMARATE-FA 45167007378 No Longer Active Abdirahman Rios MD Active CIPRO 500 MG TAB 1 tablet by mouth twice daily CIPROFLOXACIN HCL 23997827137 No Longer Active Abdirahman Rios MD Active BENADRYL 25 MG CAP 1 po q8hr PRN Congestion DIPHENHYDRAMINE HCL 45276931689 No Longer Active Abdirahman Rios MD Active ZOLOFT 50 MG TAB 1 po qd SERTRALINE HCL 713199 39622 No Longer Active Abdirahman Rios MD Active AMOXICILLIN 875 MG TABS 1 tab by mouth twice daily 201 08/09/13 AMOXICILLIN 28881112068 No Longer Active Abdirahman Rios MD Activ e AMOXICILLIN 875 MG TABS 1 tab by mouth twice daily 201 07/19/27 AMOXICILLIN 02899639600 No Longer Active Abdirahman Rios MD Activ e BACTRIM DS 800-160 MG TAB 2 tab by mouth twice daily 2 TRIMETHOPRIM-SULFAMETHOXAZOLE 98038361105 No Longer Active Abdirahman Rios MD Active KEFLEX 500 MG CAP 1 po tid x 10 days CEPHALEXIN 22869583909 No Longer Active Abdirahman Rios MD Active AMOXICILLIN 875 MG TABS 1 tab by mouth twice daily 201 07/18/07 AMOXICILLIN 82327806182 No Longer Active Abdirahman Rios MD Activ e BACTRIM DS 800-160 MG TAB 2 tab by mouth twice daily 2 BACTRIM DS 800-160 MG TAB TRIMETHOPRIM-SULFAMETHOXAZOLE Inactive ZOLOFT 50 MG TAB 1 po qd ZOLOFT 50 MG TAB 3129 41 SERTRALINE HCL Inactive BENADRYL 25 MG CAP 1 po q8hr PRN Congestion BENADRYL 25 MG CAP 2821728 DIPHENHYDRAMINE HCL Inactive 28-0.8 MG TABS Take one by mouth daily 09/20 28-0.8 MG TABS VIT-FE FUMARATE-FA Inactive HYDROCODONE-ACETAMINOPHEN 5-325 MG TABS 1 po q 6hr PRN Pain 2010 HYDROCODONE-ACETAMINOPHEN 5-325 MG TABS 244562 HYDROCODONE-ACETAMINOPHEN Inactive LORATADINE 10 MG TABS 1 tablet by mouth daily LORATADINE 10 MG TABS 509267 LORATADINE Inactive LUIS 3-0.02 MG TABS 1 tablet by mouth daily as directed LUIS 3-0.02 MG TABS DROSPIRENONE-ETHINYL ESTRADIOL Inactive VITAMINS TABS Take one by mouth daily VITAMINS TABS MV & MIN W/FE-FA TABS Inactive PERCOCET 5-325 MG TABS 1 tablet by mouth every 6 hours as ne eded for pain PERCOCET 5-325 MG TABS 5429627 OXYCODONE-ACETAMIN OPHEN Inactive PREDNISONE 20 MG TAB 2 tabs daily for 4 days, 1 t ab daily for 4 days, 1/2 tab daily for 4 days PREDNISONE 20 MG TAB 650298 PREDNISON E Inactive CLINDAMYCIN HCL 300 MG CAPS 1 po q6hr x 7 days CLINDAMYCIN HCL 300 MG CAPS 829730 CLINDAMYCIN HCL Inactive HYDROCODONE-ACETAMINOPHEN 7.5-325 MG TABS 1 po QID PRN Pain 2011 HYDROCODONE-ACETAMINOPHEN 7.5-325 MG TABS 784085 HYDROCODONE-ACETAMINOPHEN Inactive SPIRONOLACTONE 25 MG TAB 1 tablet by mouth daily 01/22 SPIRONOLACTONE 25 MG TAB 498194 SPIRONOLACTONE Inactive IBUPROFEN 600 MG TAB 1 po q6-8hr PRN IBUPROFEN 600 MG TAB 569076 IBUPROFEN Inactive FERROUS SULFATE 325 (65 FE) MG TABS 1 tablet by mouth twice yung y FERROUS SULFATE 325 (65 FE) MG TABS 007430 FERROUS SULF ATE Inactive HYDROCODONE-ACETAMINOPHEN 7.5-500 MG [...] PRN Pain 2011 HYDROCODONE-ACETAMINOPHEN 5-325 MG TABS 195063 HYDROCODONE-ACETAMINOPHEN Inactive DOXYCYCLINE HYCLATE 100 MG CAPS Take one (1) tablet by mouth twice a day DOXYCYCLINE HYCLATE 100 MG CAPS 149894 DOXYCYCLINE HYCLATE Inactive PENICILLIN V POTASSIUM 500 MG TAB 1 four times a day 2 PENICILLIN V POTASSIUM 500 MG TAB 158149 PENICILLIN V POTASSIUM Siri ctive PRISTIQ 50 MG [id number] 1 po qd PRISTIQ 50 MG [id number] DESVENLAFAXINE SUCCINATE Inactive TYLENOL/CODEINE #3 300-30 MG TAB 1-2 po q6hr PRN Pain TYLENOL/CODEINE #3 300-30 MG TAB 778354 ACETAMINOPHEN-CODEINE Inact krishna CEPHALEXIN 500 MG TABS Take one by mouth four times daily, morning, noon, early evening and bedtime. CEPHALEXIN 500 MG TABS 368760 CEPHALEXIN Inactive LORTAB 5 5-500 MG TABS 1/2 to 1 tablet by mouth go ry 6 hours as needed for pain LORTAB 5 5-500 MG TABS HYDROCODONE-A CETAMINOPHEN Inactive AMITRIPTYLINE HCL 25 MG TAB 1 tab by mouth daily 60 minutes before bedtime AMITRIPTYLINE HCL 25 MG TAB 022846 AMITRIPTYLINE HCL Inactive AMOXICILLIN 500 MG TABS 2 tabs PO bid x 10 d 7 AMOXICILLIN 500 MG TABS 110577 AMOXICILLIN Inactive IMPLANON 68 MG IMPL IMPLANTED IN LEFT ARM IMPLANON 68 MG IMPL ETONOGESTREL Inactive HYDROCODONE-ACETAMINOPHEN 5-325 MG TABS 1 PO tid PRN pain 5 HYDROCODONE-ACETAMINOPHEN 5-325 MG TABS 337446 HYDROCODONE-ACETAMIN OPHEN Inactive BACTRIM DS 800-160 MG TAB 1 tab by mouth twice daily 2 BACTRIM DS 800-160 MG TAB TRIMETHOPRIM-SULFAMETHOXAZOLE Inac tive CEPHALEXIN 500 MG CAPS 1 PO bid x 7 days CEPHALEXIN 500 MG CAPS 012344 CEPHALEXIN Inactive HYDROCODONE-ACETAMINOPHEN 5-325 MG TABS 1 tab by mouth every 6 hours as needed HYDROCODONE-ACETAMINOPHEN 5-325 MG TABS 972619 HYDROCODONE-ACETAMINOPHEN Inactive PROMETHAZINE-CODEINE 6.25-10 MG/5ML SYRP 1 tsp every 6 hrs prn c ough PROMETHAZINE-CODEINE 6.25-10 MG/5ML SYRP 366676 PROMETH AZINE-CODEINE Inactive IBUPROFEN 800 MG TAB 1 pill three times daily as needed for pain IBUPROFEN 800 MG TAB 944588 IBUPROFEN Inactive KEFLEX 500 MG CAP 1 tab po tid KEFLEX 500 MG CAP 197587 CEPHALEXIN Inactive HYDROCODONE-ACETAMINOPHEN 7.5-325 MG TABS 1 four times a day as needed for pain HYDROCODONE-ACETAMINOPHEN 7.5-325 MG TABS 889540 HYDROCODONE-ACETAMINOPHEN Inactive BACTRIM DS 800-160 MG TABS by mouth twice a day 11/05 BACTRIM DS 800-160 MG TABS SULFAMETHOXAZOLE-TRIMETHOPRIM Inactive IBUPROFEN 800 MG TABS 1 tid prn IBUPROFEN 800 MG TABS 060222 IBUPROFEN Inactive ENDOCET 10-325 MG TABS 1 q 6 hr prn ENDOC ET 10-325 MG TABS 2500265 OXYCODONE-ACETAMINOPHEN Inactive HYDROCODONE-ACETAMINOPHEN 7.5-325 MG TABS 1 by mouth e very 6 hours as needed for pain HYDROCODONE-ACETAMINOPHEN 7.5-325 MG TABS 360583 HYDROCODONE-ACETAMINOPHEN Inactive PERCOCET 7.5-325 MG TABS 1 PO q 8 hrs PRN pain PERCOCET 7.5-325 MG TABS 1078882 OXYCODONE-ACETAMINOPHEN Inactive LIDODERM 5 % PTCH One patch to painful area [place] N. On for 12 hrs, off for 12 hrs. LIDODERM 5 % PTCH 2640744 LIDOCAINE Inactiv e PERCOCET 7.5-325 MG TABS 1 PO tid PRN pain PERCOCET 7.5- 325 MG TABS 5896300 OXYCODONE-ACETAMINOPHEN Inactive MOBIC 15 MG TABS 1 tab daily MOBIC 15 MG TABS 15 2695 MELOXICAM Inactive CYCLOBENZAPRINE HCL 10 MG TABS 1/2 - 1 tab PO tid PRN back p ain, muscle spasm CYCLOBENZAPRINE HCL 10 MG TABS 796559 CYCLOBENZA JOSEPH HCL Inactive AMOXICILLIN 875 MG TABS 1 tab by mouth twice daily 201 07/18/07 AMOXICILLIN 875 MG TABS 930833 AMOXICILLIN Inactive KEFLEX 500 MG CAP 1 po tid x 10 days KEFLEX 500 MG CAP 530068 CEPHALEXIN Inactive AMOXICILLIN 875 MG TABS 1 tab by mouth twice daily 201 07/19/27 AMOXICILLIN 875 MG TABS 412114 AMOXICILLIN Inactive AMOXICILLIN 875 MG TABS 1 tab by mouth twice daily 201 08/09/13 AMOXICILLIN 875 MG TABS 351878 AMOXICILLIN Inactive CIPRO 500 MG TAB 1 tablet by mouth twice daily CIPRO 500 MG TAB 508183 CIPROFLOXACIN HCL Inactive BACTRIM DS 800-160 MG TAB 1 tab by mouth twice daily 2 BACTRIM DS 800-160 MG TAB TRIMETHOPRIM-SULFAMETHOXAZOLE Inac tive LEVAQUIN 500 MG TABS 1 PO q day x 7 days LEVAQUIN 500 MG TABS 042868 LEVOFLOXACIN Inactive CLINDAMYCIN HCL 300 MG CAPS 1 po QID x 7 days CLINDAMYCIN HCL 300 MG CAPS 474339 CLINDAMYCIN HCL Inactive AUGMENTIN 875-125 MG TAB 1 tab by mouth twice daily with food 20 22/05/07 AUGMENTIN 875-125 MG TAB 500209 AMOXICILLIN-POT [place]A [place] Inactive Advance Directives Directive Description Start Date PERMISSION TO SHARE Immunizations Vaccine Administration Date Value Standard Alf cription Seasonal influenza vaccine, injectable, containing preservative, for > 3 years old (Afluria, FluLaval, Fluzone, Fluvirin, Fluarix, Agriflu(>= 18 yo)) Fluzone (>3 yrs.) [[id number]] Influenza, seasonal, inject able Seasonal influenza vaccine, injectable, preservative free, for > 3 years old (Afluria, FluLaval, Fluzone, Fluvirin, Fluarix, Agriflu(>= 18 yo)) Fluzone preservative free (>3 yrs.) [[id number]] Influenza, seasonal, injectable, preservative free Seasonal influenza vaccine, injectable, containing preservative, for > 3 years old (Afluria, FluLaval, Fluzone, Fluvirin, Fluarix, Agriflu(>= 18 yo)) Fluzone (>3 yrs.) [[id number]] Influenza, seasonal, inject able Seasonal influenza vaccine, injectable, containing preservative, for > 3 years old (Afluria, FluLaval, Fluzone, Fluvirin, Fluarix, Agriflu(>= 18 yo)) Fluzone (>3 yrs.) [[id number]] Influenza, seasonal, inject able dT (Diphtheria and Tetanus) booster given Histor ical Td(adult) unspecified formulation Vital Signs Date Name Value Unit Range Description blood pressure, diastolic - 8462-4 91 mm[Hg] [...] ... - Chemistry sodium, serum 140 mmol/L 969-776 2173/02/24 potassium, serum 4.3 mmol/L 3.5-5.2 chloride, serum [...] 4.3-6.0 Lab Report: T3, TOTAL, INSULIN - [employer] ry triiodothyronine (T3), serum 78 ng/dL 76-181 Office Visit: low blood sugars - Chemis try cholesterol, target level 200 mg/dL triglyceride, target level 200 mg/dL HDL cholesterol, serum, target level 35 mg/dL LDL target level 100 mg/dL Encounters Code Encounter Date Provider Facility CPT-68137 Level 3 Est. 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 CPT-98519 Level 3 Est. Patient 18:12:34 CDT Shola Wright [facility] CPT-23171 Level 3 Est. Patient 19:34:46 CDT Shola Wright [facility] CPT-70101 Level 3 Est. Patient 14:19:37 CDT Abdirahman Rios MD [facility] CPT-30000 Level 3 Est. Patient 14:11:58 CDT Kalpesh goins MD [facility] CPT-32366 Level 3 Est. Patient 16:50:[address] [facility] CPT-87627 Level 3 Est. Patient 17:11:32 ICE DELIVERY DRIVER Brandie bates MD PhD [facility] CPT-20801 Level 3 Est. Patient 16:31:47 ICE DELIVERY DRIVER Shola Wright [facility] CPT-04680 Level 3 Est. Patient 17:51:10 ICE DELIVERY DRIVER Abhinav Galvan MD [facility] CPT-78177 Level 4 Est. Patient 12:54:56 ICE DELIVERY DRIVER Kalpesh goins MD [facility]-98424 Level 4 Est. Patient 12:53:56 ICE DELIVERY DRIVER Kalpesh goins MD [facility] CPT-05542 Level 3 Est. Patient 17:56:58 CDT Shola Keesha Adriana [facility] CPT-80768 Level 3 Est. Patient 14:26:20 CDT Janak butcher [facility] CPT-71730 Level 3 Est. Patient 09:38:41 CDT Shola Thao Adriana [facility] CPT-16977 Level 3 Est. Patient 14:45:26 CDT Edilberto tiwari [facility] CPT-67510 Level 3 Est. Patient 10:51:33 CDT Hira muniz [facility] CPT-41419 Level 3 Est. Patient 11:57:55 ICE DELIVERY DRIVER Shola Houghsabi [facility] CPT-62992 Level 3 Est. Patient 09:53:33 ICE DELIVERY DRIVER Edilberto tiwari [facility] CPT-20642 Level 3 Est. Patient 14:42:54 ICE DELIVERY DRIVER Abhinav Galvan MD [facility] CPT-20432 Level 3 Est. Patient 15:10:02 CDT Janak butcher [facility] CPT-58799 Level 3 Est. Patient 15:20:20 CDT Theo dennis MD [facility] CPT-72781 Level 2 Est. Patient 14:08:57 CDT Kalpesh goins MD [facility]-63919 Level 3 Est. Patient 13:56:19 CDT Abdirahman Rios MD [facility] CPT-52713 Level 3 Est. Patient 13:59:37 CDT Abdirahman Rios MD [facility] CPT-35557 Level 2 Est. Patient 14:44:59 CDT Kalpesh goins MD [facility] CPT-51116 Level 3 Est. Patient 06:06:23 CDT Edilberto tiwari DO [facility] CPT-98861 Level 3 Est. Patient 15:23:54 CDT Abdirahman Rios MD [facility] CPT-71594 Level 3 Est. Patient 15:43:49 CDT Abdirahman Rios MD [facility] CPT-43928 Level 3 Est. Patient 12:46:47 ICE DELIVERY DRIVER Abdirahman Rios MD [facility] CPT-93564 Level 3 Est. Patient 08:13:35 ICE DELIVERY DRIVER Abdirahman Rios MD [facility] CPT-53035 Level 2 Est. Patient 09:36:42 ICE DELIVERY DRIVER Abdirahman Rios MD [facility] CPT-25110 Level 3 Est. Patient 10:56:43 CDT Abdirahman Rios MD [facility] CPT-10914 Level 3 Est. Patient 18:24:52 CDT Abdirahman Rios MD [facility] CPT-64160 Level 3 Est. Patient 13:27:22 CDT Abdirahman Rios MD [facility] Procedures Code Procedure Name Date Entry Date Standard Desc ription CPT-05029 Immunization Single Admin 16:41:53 CDT 2013 CPT-91928 Fluzone Quadrivalent Intramuscular Suspe nsion 0.5 ML 16:41:53 CDT CPT-OV Office Visit 16:39:18 CDT CPT-OV Office Visit 16:16:36 CDT CPT-OV Office Visit 15:34:48 CDT CPT-60579 Postop F/U Visit 14:50:12 CDT CPT-38151 Postop F/U Visit 14:41:10 CDT CPT-47332 Venipuncture Draw Fee 11:38:04 ICE DELIVERY DRIVER CPT-41878 Postop F/U Visit 19:02:59 ICE DELIVERY DRIVER CPT-07935 Postop F/U Visit 12:04:54 ICE DELIVERY DRIVER CPT-46682 Administration single or combination vac cine inc oral 15:56:43 CDT CPT-52850 Influenza split virus > age 3 15:56:43 CDT CPT-47441 Hand comp min 3V 14:25:19 CDT CPT-26762 Postop F/U Visit 21:40:51 CDT CPT-03758 Postop F/U Visit 10:58:43 CDT CPT-50194 Administration single or combination vac cine inc oral 12:33:54 ICE DELIVERY DRIVER CPT-95639 Influenza Preservative Free split virus >age 3 12:33:54 ICE DELIVERY DRIVER CPT-35826 Administration single or combination vac cine inc oral 09:30:51 CDT CPT-29856 Influenza split virus > age 3 09:30:51 CDT CPT-63349 Postop F/U Visit 15:14:53 CDT CPT-01287 Postop F/U Visit 13:50:14 CDT CPT-44517 Postop F/U Visit 13:34:52 CDT CPT-OV Office Visit 16:55:03 CDT CPT-02879 [place] of cervix w bx ECC 13:32:50 CDT 10/19 CPT-J1885 Toradol 60 mg (Ketorolac) 15:31:59 CDT 2011 CPT-J1885 Toradol 60 mg (Ketorolac) 15:23:54 CDT 2011 CPT-36332 Visit 11:34:37 ICE DELIVERY DRIVER CPT-41008 Visit 10:52:39 ICE DELIVERY DRIVER CPT-41062 Visit 10:12:02 ICE DELIVERY DRIVER CPT-65518 Visit 11:22:43 ICE DELIVERY DRIVER CPT-51794 Visit 11:24:12 ICE DELIVERY DRIVER CPT-84021 Visit 10:47:05 ICE DELIVERY DRIVER CPT-OV Office Visit 10:26:16 ICE DELIVERY DRIVER CPT-OV Office Visit 15:34:31 ICE DELIVERY DRIVER CPT-74311 Visit 10:42:08 ICE DELIVERY DRIVER CPT-53234 Visit 10:52:45 ICE DELIVERY DRIVER CPT-000 Give Appropriate Flu Vaccine 16:56:41 CDT 2 CPT-24178 Administration single or combination vac cine inc oral 10:33:21 CDT CPT-68195 Influenza split virus > age 3 10:33:21 CDT CPT-84928 Visit 13:23:09 CDT CPT-50247 Visit 18:24:52 CDT CPT-39388 Sono OB comp > 14 weeks 12:07:49 CDT 04/07
--- OUTSIDE RECORDS SUMMARY | 2020-01-18 17:20 | XMS REPORT | Clinical Summary ---
Author Author Admin, Jeri Rashid Organization [facility] Address Unknown Phone Allergies, Adverse Reactions, [...] by mouth twice a day 11/05 SULFAMETHOXAZOLE-TRIMETHOPRIM [id number] No Longer Active Good Julian MD Active IBUPROFEN 800 MG TABS 1 tid prn IBUPROFEN [id number] Active Good Julian MD Active ENDOCET 10-325 MG TABS 1 q 6 hr prn OXYCODONE-A CETAMINOPHEN 88024030903 Active Shola MCGILL Active HYDROCODONE-ACETAMINOPHEN 7.5-325 MG TABS 1 four times a day as needed for pain HYDROCODONE-ACETAMINOPHEN 61132039057 No Longer Activ crystal Julian MD Active KEFLEX 500 MG CAP 1 tab po tid CEPHALEXIN 104642 45278 No Longer Active Hira Moser APRN Active IBUPROFEN 800 MG TAB 1 pill three times daily as needed for pain IBUPROFEN 31594885300 No Longer Active Kalpesh Dong MD Active PROMETHAZINE-CODEINE 6.25-10 MG/5ML SYRP 1 tsp every 6 hrs prn c ough PROMETHAZINE-CODEINE 12900634536 No Longer Active Kalpesh Carr Active ALPRAZOLAM 0.5 MG TABS 1 PO bid PRN ALPRAZOLAM 933323 70476 Active Shola MCGILL Active HYDROCODONE-ACETAMINOPHEN 5-325 MG TABS 1 tab by mouth every 6 hours as needed HYDROCODONE-ACETAMINOPHEN 08504933026 No Longer Activ e Shola MCGILL Active CEPHALEXIN 500 MG CAPS 1 PO bid x 7 days CEPHAL EXIN 02578537628 No Longer Active Shola MCGILL Active BACTRIM DS 800-160 MG TAB 1 tab by mouth twice daily 2 TRIMETHOPRIM-SULFAMETHOXAZOLE 56298184017 No Longer Active Kalpesh Dong MD Active HYDROCODONE-ACETAMINOPHEN 5-325 MG TABS 1 PO tid PRN pain 5 HYDROCODONE-ACETAMINOPHEN 34676002190 No Longer Active Abhinav Galvan MD Active IMPLANON 68 MG IMPL IMPLANTED IN LEFT ARM ETONO GESTREL 83390019316 No Longer Active 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 DEVELOPMENT EDUCATOR Active AMOXICILLIN 500 MG TABS 2 tabs PO bid x 10 d AM OXICILLIN 17871318485 No Longer Active Kalpesh Dong MD Active LEVAQUIN 500 MG TABS 1 PO q day x 7 days LEVOFL OXACIN 44032182361 No Longer Active Shola MCGILL Active PROAIR HFA 108 (90 BASE) MCG/ACT AERS 2 puff q 4-6 hrs PRN ALBUTEROL SULFATE 71499245430 Active Shola MCGILL Acti ve FIORICET 50-325-40 MG TABS 2 PO q 8 hrs PRN FOSTER BLOAHSPOTH-IZIA-AYTBAQQT 28843327897 Active Abdirahman Rios MD Active AMITRIPTYLINE HCL 25 MG TAB 1 tab by mouth daily 60 minutes before bedtime AMITRIPTYLINE HCL 65386679068 No Longer Active Shola MCGILL Active LORTAB 5 5-500 MG TABS 1/2 to 1 tablet by mouth go ry 6 hours as needed for pain HYDROCODONE-ACETAMINOPHEN 95244737574 No Longer Active Shola MCGILL Active CEPHALEXIN 500 MG TABS Take one by mouth four times daily, morning, noon, early evening and bedtime. CEPHALEXIN 29848672872 No Long er Active Hira Moser DEVELOPMENT EDUCATOR Active TYLENOL/CODEINE #3 300-30 MG TAB 1-2 po q6hr PRN Pain ACETAMINOPHEN-CODEINE 95500586199 No Longer Active Edilberto Marino DO Active PRISTIQ 50 MG [id number] 1 po qd DESVENLAFAXI NE SUCCINATE 76774639753 No Longer Active Edilberto Marino DO Active PENICILLIN V POTASSIUM 500 MG TAB 1 four times a day 2 PENICILLIN V POTASSIUM 80180924656 No Longer Active Edilberto Marino DO Active DOXYCYCLINE HYCLATE 100 MG CAPS Take one (1) tablet by mouth twice a day DOXYCYCLINE HYCLATE 09429645614 No Longer Active Ronnie Galvan MD Active HYDROCODONE-ACETAMINOPHEN 5-325 MG TABS 1 po q 6hr PRN Pain 2011 HYDROCODONE-ACETAMINOPHEN 23618436263 No Longer Active Patri joan Perez RN Active BACTRIM DS 800-160 MG TAB 1 tab by mouth twice daily 2 TRIMETHOPRIM-SULFAMETHOXAZOLE 74716566128 No Longer Active Kalpesh Dong MD Active LORTAB 5 5-500 MG TABS 1/2 to 1 tablet by mouth go ry 4 hours as needed for pain HYDROCODONE-ACETAMINOPHEN 05093281051 No Longer Active Kalpesh Dong MD Active GENERESS FE 0.8-25 MG-MCG CHEW Take one by mouth daily NORETHIN-ETH ESTRADIOL-FE 21014015360 No Longer Active Kalpesh Dong MD Active HYDROCODONE-ACETAMINOPHEN 7.5-500 MG TABS 1-2 every 4 hours as needed HYDROCODONE-ACETAMINOPHEN 82019169525 No Longer Activ e Kalpesh Dong MD Active FERROUS SULFATE 325 (65 FE) MG TABS 1 tablet by mouth twice yung y FERROUS SULFATE 15168691664 No Longer Active Kalpesh Dong MD Active IBUPROFEN 600 MG TAB 1 po q6-8hr PRN IBUPROFEN 91274258931 No Longer Active Kalpesh Dong MD Active SPIRONOLACTONE 25 MG TAB 1 tablet by mouth daily 01/22 SPIRONOLACTONE 76834775714 No Longer Active Kalpesh Dong MD Acti ve HYDROCODONE-ACETAMINOPHEN 7.5-325 MG TABS 1 po QID PRN Pain 2011 HYDROCODONE-ACETAMINOPHEN 96332008080 No Longer Active Kalpesh Dong MD Active CLINDAMYCIN HCL 300 MG CAPS 1 po q6hr x 7 days CLINDAMYCIN HCL 47894616670 No Longer Active Edilberto Marino DO Active PREDNISONE 20 MG TAB 2 tabs daily for 4 days, 1 t ab daily for 4 days, 1/2 tab daily for 4 days PREDNISONE 44069654539 No Longer Active Edilberto Marino DO Active PERCOCET 5-325 MG TABS 1 tablet by mouth every 6 hours as ne eded for pain OXYCODONE-ACETAMINOPHEN 46880718506 No Longer Active Abdirahman Rios MD Active VITAMINS TABS Take one by mouth daily MV & MIN W/FE-FA TABS 50844127114 No Longer Active Abdirahman Rios MD Active LUIS 3-0.02 MG TABS 1 tablet by mouth daily as directed DROSPIRENONE-ETHINYL ESTRADIOL 88771378366 No Longer Active Abdirahman Rios MD Active LORATADINE 10 MG TABS 1 tablet by mouth daily L ORATADINE 11998057732 No Longer Active Kalpesh Dong MD Active HYDROCODONE-ACETAMINOPHEN 5-325 MG TABS 1 po q 6hr PRN Pain 2010 HYDROCODONE-ACETAMINOPHEN 29632555910 No Longer Active Edilberto Marino DO Active BACTRIM DS 800-160 MG TAB 1 tab by mouth twice daily 2 TRIMETHOPRIM-SULFAMETHOXAZOLE 98719494751 No Longer Active Abdirahman Rios MD Active 28-0.8 MG TABS Take one by mouth daily 09/20 VIT-FE FUMARATE-FA 07057603715 No Longer Active Abdirahman Rios MD Active CIPRO 500 MG TAB 1 tablet by mouth twice daily CIPROFLOXACIN HCL 65840438847 No Longer Active Abdirahman Rios MD Active BENADRYL 25 MG CAP 1 po q8hr PRN Congestion DIPHENHYDRAMINE HCL 56371196655 No Longer Active Abdirahman Rios MD Active ZOLOFT 50 MG TAB 1 po qd SERTRALINE HCL 430286 85582 No Longer Active Abdirahman Rios MD Active AMOXICILLIN 875 MG TABS 1 tab by mouth twice daily 201 08/09/13 AMOXICILLIN 45738675003 No Longer Active Abdirahman Rios MD Activ e AMOXICILLIN 875 MG TABS 1 tab by mouth twice daily 201 07/19/27 AMOXICILLIN 58151756639 No Longer Active Abdirahman Rios MD Activ e BACTRIM DS 800-160 MG TAB 2 tab by mouth twice daily 2 TRIMETHOPRIM-SULFAMETHOXAZOLE 95712397617 No Longer Active Abdirahman Rios MD Active KEFLEX 500 MG CAP 1 po tid x 10 days CEPHALEXIN 32955839023 No Longer Active Abdirahman Rios MD Active AMOXICILLIN 875 MG TABS 1 tab by mouth twice daily 201 07/18/07 AMOXICILLIN 50838936332 No Longer Active Abdirahman Rios MD Activ e BACTRIM DS 800-160 MG TAB 2 tab by mouth twice daily 2 BACTRIM DS 800-160 MG TAB TRIMETHOPRIM-SULFAMETHOXAZOLE Inactive ZOLOFT 50 MG TAB 1 po qd ZOLOFT 50 MG TAB 3129 41 SERTRALINE HCL Inactive BENADRYL 25 MG CAP 1 po q8hr PRN Congestion BENADRYL 25 MG CAP 6652913 DIPHENHYDRAMINE HCL Inactive 28-0.8 MG TABS Take one by mouth daily 09/20 28-0.8 MG TABS VIT-FE FUMARATE-FA Inactive HYDROCODONE-ACETAMINOPHEN 5-325 MG TABS 1 po q 6hr PRN Pain 2010 HYDROCODONE-ACETAMINOPHEN 5-325 MG TABS 748781 HYDROCODONE-ACETAMINOPHEN Inactive LORATADINE 10 MG TABS 1 tablet by mouth daily LORATADINE 10 MG TABS 594022 LORATADINE Inactive LUIS 3-0.02 MG TABS 1 tablet by mouth daily as directed LUIS 3-0.02 MG TABS DROSPIRENONE-ETHINYL ESTRADIOL Inactive VITAMINS TABS Take one by mouth daily VITAMINS TABS MV & MIN W/FE-FA TABS Inactive PERCOCET 5-325 MG TABS 1 tablet by mouth every 6 hours as ne eded for pain PERCOCET 5-325 MG TABS 6545280 OXYCODONE-ACETAMIN OPHEN Inactive PREDNISONE 20 MG TAB 2 tabs daily for 4 days, 1 t ab daily for 4 days, 1/2 tab daily for 4 days PREDNISONE 20 MG TAB 249807 PREDNISON E Inactive CLINDAMYCIN HCL 300 MG CAPS 1 po q6hr x 7 days CLINDAMYCIN HCL 300 MG CAPS 152346 CLINDAMYCIN HCL Inactive HYDROCODONE-ACETAMINOPHEN 7.5-325 MG TABS 1 po QID PRN Pain 2011 HYDROCODONE-ACETAMINOPHEN 7.5-325 MG TABS 472138 HYDROCODONE-ACETAMINOPHEN Inactive SPIRONOLACTONE 25 MG TAB 1 tablet by mouth daily 01/22 SPIRONOLACTONE 25 MG TAB 819897 SPIRONOLACTONE Inactive IBUPROFEN 600 MG TAB 1 po q6-8hr PRN IBUPROFEN 600 MG TAB 554493 IBUPROFEN Inactive FERROUS SULFATE 325 (65 FE) MG TABS 1 tablet by mouth twice yung y FERROUS SULFATE 325 (65 FE) MG TABS 258179 FERROUS SULF ATE Inactive HYDROCODONE-ACETAMINOPHEN 7.5-500 MG TABS 1-2 every 4 hours as needed HYDROCODONE-ACETAMINOPHEN 7.5-500 MG TABS 162907 HYDROCODONE-ACETAMINOPHEN Inactive GENERESS FE 0.8-25 MG-MCG CHEW [...] PRN Pain 2011 HYDROCODONE-ACETAMINOPHEN 5-325 MG TABS 488568 HYDROCODONE-ACETAMINOPHEN Inactive DOXYCYCLINE HYCLATE 100 MG CAPS Take one (1) tablet by mouth twice a day DOXYCYCLINE HYCLATE 100 MG CAPS 566927 DOXYCYCLINE HYCLATE Inactive PENICILLIN V POTASSIUM 500 MG TAB 1 four times a day 2 PENICILLIN V POTASSIUM 500 MG TAB 451611 PENICILLIN V POTASSIUM [place] ctive PRISTIQ 50 MG [id number] 1 po qd PRISTIQ 50 MG [id number] DESVENLAFAXINE SUCCINATE Inactive TYLENOL/CODEINE #3 300-30 MG TAB 1-2 po q6hr PRN Pain TYLENOL/CODEINE #3 300-30 MG TAB 206577 ACETAMINOPHEN-CODEINE Inact krishna CEPHALEXIN 500 MG TABS Take one by mouth four times daily, morning, noon, early evening and bedtime. CEPHALEXIN 500 MG TABS 027693 CEPHALEXIN Inactive LORTAB 5 5-500 MG TABS 1/2 to 1 tablet by mouth go ry 6 hours as needed for pain LORTAB 5 5-500 MG TABS HYDROCODONE-A CETAMINOPHEN Inactive AMITRIPTYLINE HCL 25 MG TAB 1 tab by mouth daily 60 minutes before bedtime AMITRIPTYLINE HCL 25 MG TAB 212211 AMITRIPTYLINE HCL Inactive AMOXICILLIN 500 MG TABS 2 tabs PO bid x 10 d 7 AMOXICILLIN 500 MG TABS 019945 AMOXICILLIN Inactive IMPLANON 68 MG IMPL IMPLANTED IN LEFT ARM IMPLANON 68 MG IMPL ETONOGESTREL Inactive HYDROCODONE-ACETAMINOPHEN 5-325 MG TABS 1 PO tid PRN pain 5 HYDROCODONE-ACETAMINOPHEN 5-325 MG TABS 338437 HYDROCODONE-ACETAMIN OPHEN Inactive BACTRIM DS 800-160 MG TAB 1 tab by mouth twice daily 2 BACTRIM DS 800-160 MG TAB TRIMETHOPRIM-SULFAMETHOXAZOLE Inac tive CEPHALEXIN 500 MG CAPS 1 PO bid x 7 days CEPHALEXIN 500 MG CAPS 626786 CEPHALEXIN Inactive HYDROCODONE-ACETAMINOPHEN 5-325 MG TABS 1 tab by mouth every 6 hours as needed HYDROCODONE-ACETAMINOPHEN 5-325 MG TABS 062838 HYDROCODONE-ACETAMINOPHEN Inactive PROMETHAZINE-CODEINE 6.25-10 MG/5ML SYRP 1 tsp every 6 hrs prn c ough PROMETHAZINE-CODEINE 6.25-10 MG/5ML SYRP 619521 PROMETH AZINE-CODEINE Inactive IBUPROFEN 800 MG TAB 1 pill three times daily as needed for pain IBUPROFEN 800 MG TAB 018286 IBUPROFEN Inactive KEFLEX 500 MG CAP 1 tab po tid KEFLEX 500 MG CAP 422348 CEPHALEXIN Inactive HYDROCODONE-ACETAMINOPHEN 7.5-325 MG TABS 1 four times a day as needed for pain HYDROCODONE-ACETAMINOPHEN 7.5-325 MG TABS 662771 HYDROCODONE-ACETAMINOPHEN Inactive BACTRIM DS 800-160 MG TABS by mouth twice a day 11/05 BACTRIM DS 800-160 MG TABS SULFAMETHOXAZOLE-TRIMETHOPRIM Inactive AMOXICILLIN 875 MG TABS 1 tab by mouth twice daily 201 07/18/07 AMOXICILLIN 875 MG TABS 193554 AMOXICILLIN Inactive KEFLEX 500 MG CAP 1 po tid x 10 days KEFLEX 500 MG CAP 431895 CEPHALEXIN Inactive AMOXICILLIN 875 MG TABS 1 tab by mouth twice daily 201 07/19/27 AMOXICILLIN 875 MG TABS 460432 AMOXICILLIN Inactive AMOXICILLIN 875 MG TABS 1 tab by mouth twice daily 08/09/13 AMOXICILLIN 875 MG TABS 764885 AMOXICILLIN Inactive CIPRO 500 MG TAB 1 tablet by mouth twice daily CIPRO 500 MG TAB 451030 CIPROFLOXACIN HCL Inactive BACTRIM DS 800-160 MG TAB 1 tab by mouth twice daily 2 BACTRIM DS 800-160 MG TAB TRIMETHOPRIM-SULFAMETHOXAZOLE Inac tive LEVAQUIN 500 MG TABS 1 PO q day x 7 days LEVAQUIN 500 MG TABS 486397 LEVOFLOXACIN Inactive Advance Directives Directive Description Start Date PERMISSION TO SHARE Immunizations Vaccine Administration Date Value Standard Alf cription Seasonal influenza vaccine, injectable, containing preservative, for > 3 years old (Afluria, FluLaval, Fluzone, Fluvirin, Fluarix, Agriflu(>= 18 yo)) Fluzone (>3 yrs.) [[id number]] Influenza, seasonal, inject able Seasonal influenza vaccine, injectable, preservative free, for > 3 years old (Afluria, FluLaval, Fluzone, Fluvirin, Fluarix, Agriflu(>= 18 yo)) Fluzone preservative free (>3 yrs.) [[id number]] Influenza, seasonal, injectable, preservative free Seasonal influenza vaccine, injectable, containing preservative, for > 3 years old (Afluria, FluLaval, Fluzone, Fluvirin, Fluarix, Agriflu(>= 18 yo)) Fluzone (>3 yrs.) [[id number]] Influenza, seasonal, inject able Seasonal influenza vaccine, injectable, containing preservative, for > 3 years old (Afluria, FluLaval, Fluzone, Fluvirin, Fluarix, Agriflu(>= 18 yo)) Fluzone (>3 yrs.) [[id number]] Influenza, seasonal, inject able dT (Diphtheria and [...] mg/dL Chart Maintenance: Outside labs entered on [employer] - Hematology leukocyte count, blood 8.3 10*3/mm3 erythrocyte (RBC) count 5.2 10*6/mm3 hemoglobin, blood 14.2 g/dL hematocrit, blood 42.6 % mean corpuscular volume, RBC 82.4 fL mean corpuscular hemoglobin, RBC 27.5 pg red blood cell distribution width 12.9 % platelet count 316 10*3/mm3 Lab Report: CBC W/DIFF, Comp. Metabolic Panel, Thyroid Stimulating Hormo ... - Chemistry sodium, serum 140 mmol/L 592-780 5727/02/24 potassium, serum 4.3 mmol/L 3.5-5.2 chloride, serum [...] 4.3-6.0 Lab Report: T3, TOTAL, INSULIN - Eye Surgeon ry triiodothyronine, serum 78 ng/dL 76-181 Lab [...] mg/dL Encounters Code Encounter Date Provider Facility CPT-27829 Level 3 Est. Patient 14:11:58 CDT Kalpesh goins MD [facility] CPT-66144 Level 3 Est. Patient 16:50:00 CDT Michelle MERCADO [facility] CPT-29015 Level 3 Est. Patient 17:11:32 OBJECT ORIENTED PROGRAMMER Brandie bates MD PhD [facility] CPT-64710 Level 3 Est. Patient 16:31:47 OBJECT ORIENTED PROGRAMMER Shola MCGILL [facility] CPT-99606 Level 3 Est. Patient 17:51:10 OBJECT ORIENTED PROGRAMMER Abhinav Galvan MD [facility] CPT-54391 Level 4 Est. Patient 12:54:56 OBJECT ORIENTED PROGRAMMER Kalpesh goins MD [facility] CPT-99908 Level 4 Est. Patient 12:53:56 OBJECT ORIENTED PROGRAMMER Kalpesh goins MD [facility] CPT-49232 Level 3 Est. Patient 17:56:58 CDT Shola MCGILL [facility] CPT-83457 Level 3 Est. Patient 14:26:20 CDT Janak butcher [facility] CPT-94355 Level 3 Est. Patient 09:38:41 CDT Shola Wright [facility] CPT-22772 Level 3 Est. Patient 14:45:26 CDT Edilberto tiwari [facility] CPT-63953 Level 3 Est. Patient 10:51:33 CDT Hira muniz [facility] CPT-11922 Level 3 Est. Patient 11:57:55 OBJECT ORIENTED PROGRAMMER Shola Thao Adriana [facility] CPT-90505 Level 3 Est. Patient 09:53:33 OBJECT ORIENTED PROGRAMMER Edilberto tiwari [facility] CPT-74391 Level 3 Est. Patient 14:42:54 OBJECT ORIENTED PROGRAMMER Abhinav Galvan MD [facility] CPT-47935 Level 3 Est. Patient 15:10:02 CDT Janak butcher [facility] CPT-89679 Level 3 Est. Patient 15:20:20 CDT Theo dennis MD [facility] CPT-52217 Level 2 Est. Patient 14:08:57 CDT Kalpesh goins MD [facility] CPT-94985 Level 3 Est. Patient 13:56:19 CDT Abdirahman Rios MD [facility] CPT-50576 Level 3 Est. Patient 13:59:37 CDT Abdirahman Rios MD [facility] CPT-56436 Level 2 Est. Patient 14:44:59 CDT Kalpesh goins MD [facility]-67310 Level 3 Est. Patient 06:06:23 CDT Edilberto tiwari [facility] CPT-52060 Level 3 Est. Patient 15:23:54 CDT Abdirahman Rios MD [facility] CPT-24988 Level 3 Est. Patient 15:43:49 CDT Abdirahman Rios MD [facility] CPT-49695 Level 3 Est. Patient 12:46:47 OBJECT ORIENTED PROGRAMMER Abdirahman Rios MD [facility] CPT-42129 Level 3 Est. Patient 08:13:35 OBJECT ORIENTED PROGRAMMER Abdirahman Rios MD [facility] CPT-67799 Level 2 Est. Patient 09:36:42 OBJECT ORIENTED PROGRAMMER Abdirahman Rios MD [facility] CPT-50862 Level 3 Est. Patient 10:56:43 CDT Abdirahman Rios MD [facility] CPT-76232 Level 3 Est. Patient 18:24:52 CDT Abdirahman Rios MD [facility] CPT-71123 Level 3 Est. Patient 13:27:22 CDT Abdirahman Rios MD [facility] Procedures Code Procedure Name Date Entry Date Standard Desc ription CPT-OV Office Visit 15:34:48 CDT CPT-20473 Postop F/U Visit 14:50:12 CDT CPT-97129 Postop F/U Visit 14:41:10 CDT CPT-33554 Venipuncture Draw Fee 11:38:04 OBJECT ORIENTED PROGRAMMER CPT-22577 Postop F/U Visit 19:02:59 OBJECT ORIENTED PROGRAMMER CPT-81180 Postop F/U Visit 12:04:54 OBJECT ORIENTED PROGRAMMER CPT-32786 Administration single or combination vac cine inc oral 15:56:43 CDT CPT-80158 Influenza split virus > age 3 15:56:43 CDT CPT-98816 Hand comp min 3V 14:25:19 CDT CPT-28959 Postop F/U Visit 21:40:51 CDT CPT-47665 Postop F/U Visit 10:58:43 CDT CPT-60488 Administration single or combination vac cine inc oral 12:33:54 OBJECT ORIENTED PROGRAMMER CPT-35945 Influenza Preservative Free split virus >age 3 12:33:54 OBJECT ORIENTED PROGRAMMER CPT-07012 Administration single or combination vac cine inc oral 09:30:51 CDT CPT-55802 Influenza split virus > age 3 09:30:51 CDT CPT-50793 Postop F/U Visit 15:14:53 CDT CPT-73789 Postop F/U Visit 13:50:14 CDT CPT-22081 Postop F/U Visit 13:34:52 CDT CPT-OV Office Visit 16:55:03 CDT CPT-34304 [place] of cervix w bx ECC 13:32:50 CDT 10/19 CPT-J1885 Toradol 60 mg (Ketorolac) 15:31:59 CDT 2011 CPT-J1885 Toradol 60 mg (Ketorolac) 15:23:54 CDT 2011 CPT-07170 Visit 11:34:37 OBJECT ORIENTED PROGRAMMER CPT-37225 Visit 10:52:39 OBJECT ORIENTED PROGRAMMER CPT-07954 Visit 10:12:02 OBJECT ORIENTED PROGRAMMER CPT-38495 Visit 11:22:43 OBJECT ORIENTED PROGRAMMER CPT-07247 Visit 11:24:12 OBJECT ORIENTED PROGRAMMER CPT-74240 Visit 10:47:05 OBJECT ORIENTED PROGRAMMER CPT-OV Office Visit 10:26:16 OBJECT ORIENTED PROGRAMMER CPT-OV Office Visit 15:34:31 OBJECT ORIENTED PROGRAMMER CPT-38273 Visit 10:42:08 OBJECT ORIENTED PROGRAMMER CPT-52170 Visit 10:52:45 OBJECT ORIENTED PROGRAMMER CPT-000 Give Appropriate Flu Vaccine 16:56:41 CDT 2 CPT-04368 Administration single or combination vac cine inc oral 10:33:21 CDT CPT-78978 Influenza split virus > age 3 10:33:21 CDT CPT-90146 Visit 13:23:09 CDT CPT-13430 Visit 18:24:52 CDT CPT-72816 Sono OB comp > 14 weeks 12:07:49 CDT 04/07
--- OUTSIDE RECORDS SUMMARY | 2020-01-18 17:20 | XMS REPORT | Clinical Summary ---
Author Author Admin, Jeri Rashid Organization [facility] Address Unknown Phone Unavailable Allergies, [...] 1 every 6 hours as needed OXYCODONE-ACETAMINOPHEN 52768275140 Active Jillina Frazell CIVIL DESIGN SPECIALIST Active LORATADINE 10 MG TABS 1 tablet by mouth daily L ORATADINE 64508565638 No Longer Active Jillina Frazell CIVIL DESIGN SPECIALIST Active DIFLUCAN 150 MG TAB 1 qODay x 2 doses FLUCONAZO LE 61993373475 No Longer Active Jillina Frazell CIVIL DESIGN SPECIALIST Active CYCLOBENZAPRINE HCL 10 MG TABS 1/2 - 1 tab PO tid PRN back p ain, muscle spasm CYCLOBENZAPRINE HCL 54586446557 No Longer Active Karen siri Frazell CIVIL DESIGN SPECIALIST Active AUGMENTIN 875-125 MG TAB 1 tab by mouth twice daily with food 20 22/05/07 AMOXICILLIN-POT CLAVULANATE 27207739787 No Longer Active Loida Rios MD Active MOBIC 15 MG TABS 1 tab daily MELOXICAM 392797166 14 No Longer Active Abdirahman Rios MD Active PERCOCET 7.5-325 MG TABS 1 PO tid PRN pain OXYCODONE-ACETAMINOPHEN 88312988104 No Longer Active Abdirahman Rios MD Active LIDODERM 5 % PTCH One patch to painful area SC N. On for 12 hrs, off for 12 hrs. LIDOCAINE 66440883650 No Longer Active Abdirahman Rios MD Active PERCOCET 7.5-325 MG TABS 1 PO q 8 hrs PRN pain OXYCODONE-ACETAMINOPHEN 06336316645 No Longer Active Shola MCGILL Active HYDROCODONE-ACETAMINOPHEN 10-325 MG TABS 1 by mouth ev chaka 8 hours as needed for pain HYDROCODONE-ACETAMINOPHEN 50000192967 Active Shola MCGILL Active HYDROCODONE-ACETAMINOPHEN 7.5-325 MG TABS 1 by mouth e very 6 hours as needed for pain HYDROCODONE-ACETAMINOPHEN 64346447525 No Longer Active Good Julian MD Active LC-5 LIDOCAINE 5 % CREA apply 1 time daily to affected area LIDOCAINE (ANORECTAL) 61846127401 Active Shola MCGILL Active CLINDAMYCIN HCL 300 MG CAPS 1 po QID x 7 days CLINDAMYCIN HCL 16601419045 No Longer Active Abdirahman Rios MD Activ e BACTRIM DS 800-160 MG TABS 1 po BID x 7 days 5 SULFAMETHOXAZOLE-TRIMETHOPRIM 93965903919 No Longer Active Abdirahman Rios MD Active ENDOCET 10-325 MG TABS 1 q 6 hr prn OXYCODONE-ACETAMINOPHEN 52004353125 No Longer Active Abdirahman Rios MD Active IBUPROFEN 800 MG TABS 1 tid prn IBUPROFEN 129158 41216 No Longer Active Abdirahman Rios MD Active BACTRIM DS 800-160 MG TABS by mouth twice a day 11/05 SULFAMETHOXAZOLE-TRIMETHOPRIM 98447969607 No Longer Active Good Julian MD Active HYDROCODONE-ACETAMINOPHEN 7.5-325 MG TABS 1 four times a day as needed for pain HYDROCODONE-ACETAMINOPHEN 28747932541 No Longer Activ e Good Julian MD Active KEFLEX 500 MG CAP 1 tab po tid CEPHALEXIN 001733 82876 No Longer Active Jillsiri Moser APRN Active IBUPROFEN 800 MG TAB 1 pill three times daily as needed for pain IBUPROFEN 58714692637 No Longer Active Kalpesh Dong MD Active PROMETHAZINE-CODEINE 6.25-10 MG/5ML SYRP 1 tsp every 6 hrs prn c ou PROMETHAZINE-CODEINE 03880752696 No Longer Active Kalpesh Carr Active ALPRAZOLAM 0.5 MG TABS 1 PO bid PRN ALPRAZOLAM 415286 35759 Active Edilberto Marino DO Active HYDROCODONE-ACETAMINOPHEN 5-325 MG TABS 1 tab by mouth every 6 hours as needed HYDROCODONE-ACETAMINOPHEN 77867422900 No Longer Activ e Shola MCGILL Active CEPHALEXIN 500 MG CAPS 1 PO bid x 7 days CEPHAL EXIN 08849586752 No Longer Active Shola MCGILL Active BACTRIM DS 800-160 MG TAB 1 tab by mouth twice daily 2 TRIMETHOPRIM-SULFAMETHOXAZOLE 89035784859 No Longer Active Kalpesh Dong MD Active HYDROCODONE-ACETAMINOPHEN 5-325 MG TABS 1 PO tid PRN pain 5 HYDROCODONE-ACETAMINOPHEN 39337720945 No Longer Active Abhinav Galvan MD Active IMPLANON 68 MG IMPL IMPLANTED IN LEFT ARM ETONO GESTREL 95697792448 No Longer Active Hira Moser APRN Active AMOXICILLIN 500 MG TABS 2 tabs PO bid x 10 d AM OXICILLIN 57086409978 No Longer Active Kalpesh Dong MD Active LEVAQUIN 500 MG TABS 1 PO q day x 7 days LEVOFL OXACIN 54150504785 No Longer Active Shola MCGILL Active PROAIR HFA 108 (90 BASE) MCG/ACT AERS 2 puff q 4-6 hrs PRN ALBUTEROL SULFATE 31047178035 Active Edilberto Marino DO Active FIORICET 50-325-40 MG TABS 2 PO q 8 hrs PRN FOSTER [id number] Active Shola MCGILL Active AMITRIPTYLINE HCL 25 MG TAB 1 tab by mouth daily 60 minutes before bedtime AMITRIPTYLINE HCL 81773531647 No Longer Active Shola MCGILL Active LORTAB 5 5-500 MG TABS 1/2 to 1 tablet by mouth go ry 6 hours as needed for pain HYDROCODONE-ACETAMINOPHEN 49700421004 No Longer Active Shola MCGILL Active CEPHALEXIN 500 MG TABS Take one by mouth four times daily, morning, noon, early evening and bedtime. CEPHALEXIN 93604666582 No Long er Active Hira Moser APRN Active TYLENOL/CODEINE #3 300-30 MG TAB 1-2 po q6hr PRN Pain ACETAMINOPHEN-CODEINE 06282669719 No Longer Active Edilberto Marino DO Active PRISTIQ 50 MG [id number] 1 po qd DESVENLAFAXI NE SUCCINATE 27499701705 No Longer Active Edilberto Marino DO Active PENICILLIN V POTASSIUM 500 MG TAB 1 four times a day 2 PENICILLIN V POTASSIUM 42957239681 No Longer Active Edilberto Marino DO Active DOXYCYCLINE HYCLATE 100 MG CAPS Take one (1) tablet by mouth twice a day DOXYCYCLINE HYCLATE 92865004213 No Longer Active Ronnie Galvan MD Active HYDROCODONE-ACETAMINOPHEN 5-325 MG TABS 1 po q 6hr PRN Pain 2011 HYDROCODONE-ACETAMINOPHEN 44649599480 No Longer Active Jerson Perez RN Active BACTRIM DS 800-160 MG TAB 1 tab by mouth twice daily 2 TRIMETHOPRIM-SULFAMETHOXAZOLE 81072442547 No Longer Active Kalpesh Dong MD Active LORTAB 5 5-500 MG TABS 1/2 to 1 tablet by mouth go ry 4 hours as needed for pain HYDROCODONE-ACETAMINOPHEN 83016684251 No Longer Active Kalpesh Dong MD Active GENERESS FE 0.8-25 MG-MCG CHEW Take one by mouth daily NORETHIN-ETH ESTRADIOL-FE 21092149619 No Longer Active Kalpesh Dong MD Active HYDROCODONE-ACETAMINOPHEN 7.5-500 MG TABS 1-2 every 4 hours as needed HYDROCODONE-ACETAMINOPHEN 16328757158 No Longer Activ e Kalpesh Dong MD Active FERROUS SULFATE 325 (65 FE) MG TABS 1 tablet by mouth twice yung y FERROUS SULFATE 18349483586 No Longer Active Kalpesh Dong MD Active IBUPROFEN 600 MG TAB 1 po q6-8hr PRN IBUPROFEN 53606201870 No Longer Active Kalpesh Dong MD Active SPIRONOLACTONE 25 MG TAB 1 tablet by mouth daily 01/22 SPIRONOLACTONE 07466536591 No Longer Active Kalpesh Dong MD Acti ve HYDROCODONE-ACETAMINOPHEN 7.5-325 MG TABS 1 po QID PRN Pain 2011 HYDROCODONE-ACETAMINOPHEN 96242910985 No Longer Active Kalpesh Dong MD Active CLINDAMYCIN HCL 300 MG CAPS 1 po q6hr x 7 days CLINDAMYCIN HCL 81998223448 No Longer Active Edilberto Marino DO Active PREDNISONE 20 MG TAB 2 tabs daily for 4 days, 1 t ab daily for 4 days, 1/2 tab daily for 4 days PREDNISONE 31846798622 No Longer Active Edilberto Marino DO Active PERCOCET 5-325 MG TABS 1 tablet by mouth every 6 hours as ne eded for pain OXYCODONE-ACETAMINOPHEN 60940455620 No Longer Active Abdirahman Rios MD Active VITAMINS TABS Take one by mouth daily MV & MIN W/FE-FA TABS 92499814582 No Longer Active Abdirahman Rios MD Active LUIS 3-0.02 MG TABS 1 tablet by mouth daily as directed DROSPIRENONE-ETHINYL ESTRADIOL 72722455851 No Longer Active Abdirahman Rios MD Active LORATADINE 10 MG TABS 1 tablet by mouth daily L ORATADINE 43525977886 No Longer Active Kalpesh Dong MD Active HYDROCODONE-ACETAMINOPHEN 5-325 MG TABS 1 po q 6hr PRN Pain 2010 HYDROCODONE-ACETAMINOPHEN 66486749915 No Longer Active Edilberto Marino DO Active BACTRIM DS 800-160 MG TAB 1 tab by mouth twice daily 2 TRIMETHOPRIM-SULFAMETHOXAZOLE 82632235780 No Longer Active Abdirahman Rios MD Active 28-0.8 MG TABS Take one by mouth daily 09/20 VIT-FE FUMARATE-FA 94356805988 No Longer Active Abdirahman Rios MD Active CIPRO 500 MG TAB 1 tablet by mouth twice daily CIPROFLOXACIN HCL 48727571644 No Longer Active Abdirahman Rios MD Active BENADRYL 25 MG CAP 1 po q8hr PRN Congestion DIPHENHYDRAMINE HCL 85219980688 No Longer Active Abdirahman Rios MD Active ZOLOFT 50 MG TAB 1 po qd SERTRALINE HCL 574912 14166 No Longer Active Abdirahman Rios MD Active AMOXICILLIN 875 MG TABS 1 tab by mouth twice daily 201 08/09/13 AMOXICILLIN 79099856404 No Longer Active Abdirahman Rios MD Activ e AMOXICILLIN 875 MG TABS 1 tab by mouth twice daily 201 07/19/27 AMOXICILLIN 83624640964 No Longer Active Abdirahman Rios MD Activ e BACTRIM DS 800-160 MG TAB 2 tab by mouth twice daily 2 TRIMETHOPRIM-SULFAMETHOXAZOLE 45703522251 No Longer Active Abdirahman Rios MD Active KEFLEX 500 MG CAP 1 po tid x 10 days CEPHALEXIN 19912671243 No Longer Active Abdirahman Rios MD Active AMOXICILLIN 875 MG TABS 1 tab by mouth twice daily 201 07/18/07 AMOXICILLIN 40708506449 No Longer Active Abdirahman Rios MD Activ e BACTRIM DS 800-160 MG TAB 2 tab by mouth twice daily 2 BACTRIM DS 800-160 MG TAB TRIMETHOPRIM-SULFAMETHOXAZOLE Inactive ZOLOFT 50 MG TAB 1 po qd ZOLOFT 50 MG TAB 3129 41 SERTRALINE HCL Inactive BENADRYL 25 MG CAP 1 po q8hr PRN Congestion BENADRYL 25 MG CAP 6579842 DIPHENHYDRAMINE HCL Inactive 28-0.8 MG TABS Take one by mouth daily 09/20 28-0.8 MG TABS VIT-FE FUMARATE-FA Inactive HYDROCODONE-ACETAMINOPHEN 5-325 MG TABS 1 po q 6hr PRN Pain 2010 HYDROCODONE-ACETAMINOPHEN 5-325 MG TABS 649988 HYDROCODONE-ACETAMINOPHEN Inactive LORATADINE 10 MG TABS 1 tablet by mouth daily LORATADINE 10 MG TABS 993793 LORATADINE Inactive LUIS 3-0.02 MG TABS 1 tablet by mouth daily as directed LUIS 3-0.02 MG TABS DROSPIRENONE-ETHINYL ESTRADIOL Inactive VITAMINS TABS Take one by mouth daily VITAMINS TABS MV & MIN W/FE-FA TABS Inactive PERCOCET 5-325 MG TABS 1 tablet by mouth every 6 hours as ne eded for pain PERCOCET 5-325 MG TABS 9658529 OXYCODONE-ACETAMIN OPHEN Inactive PREDNISONE 20 MG TAB 2 tabs daily for 4 days, 1 t ab daily for 4 days, 1/2 tab daily for 4 days PREDNISONE 20 MG TAB 680848 PREDNISON E Inactive CLINDAMYCIN HCL 300 MG CAPS 1 po q6hr x 7 days CLINDAMYCIN HCL 300 MG CAPS 879128 CLINDAMYCIN HCL Inactive HYDROCODONE-ACETAMINOPHEN 7.5-325 MG TABS 1 po QID PRN Pain 2011 HYDROCODONE-ACETAMINOPHEN 7.5-325 MG TABS 911993 HYDROCODONE-ACETAMINOPHEN Inactive SPIRONOLACTONE 25 MG TAB 1 tablet by mouth daily 01/22 SPIRONOLACTONE 25 MG TAB 029588 SPIRONOLACTONE Inactive IBUPROFEN 600 MG TAB 1 po q6-8hr PRN IBUPROFEN 600 MG TAB 296821 IBUPROFEN Inactive FERROUS SULFATE 325 (65 FE) MG TABS 1 tablet by mouth twice yung y FERROUS SULFATE 325 (65 FE) MG TABS 404197 FERROUS SULF ATE Inactive HYDROCODONE-ACETAMINOPHEN 7.5-500 MG [...] PRN Pain 2011 HYDROCODONE-ACETAMINOPHEN 5-325 MG TABS 664089 HYDROCODONE-ACETAMINOPHEN Inactive DOXYCYCLINE HYCLATE 100 MG CAPS Take one (1) tablet by mouth twice a day DOXYCYCLINE HYCLATE 100 MG CAPS 728319 DOXYCYCLINE HYCLATE Inactive PENICILLIN V POTASSIUM 500 MG TAB 1 four times a day 2 PENICILLIN V POTASSIUM 500 MG TAB 947460 PENICILLIN V POTASSIUM Siri ctive PRISTIQ 50 MG [id number] 1 po qd PRISTIQ 50 MG [id number] DESVENLAFAXINE SUCCINATE Inactive TYLENOL/CODEINE #3 300-30 MG TAB 1-2 po q6hr PRN Pain TYLENOL/CODEINE #3 300-30 MG TAB 790787 ACETAMINOPHEN-CODEINE Inact krishna CEPHALEXIN 500 MG TABS Take one by mouth four times daily, morning, noon, early evening and bedtime. CEPHALEXIN 500 MG TABS 353159 CEPHALEXIN Inactive LORTAB 5 5-500 MG TABS 1/2 to 1 tablet by mouth go ry 6 hours as needed for pain LORTAB 5 5-500 MG TABS HYDROCODONE-A CETAMINOPHEN Inactive AMITRIPTYLINE HCL 25 MG TAB 1 tab by mouth daily 60 minutes before bedtime AMITRIPTYLINE HCL 25 MG TAB 391215 AMITRIPTYLINE HCL Inactive AMOXICILLIN 500 MG TABS 2 tabs PO bid x 10 d AMOXICILLIN 500 MG TABS 591170 AMOXICILLIN Inactive IMPLANON 68 MG IMPL IMPLANTED IN LEFT ARM IMPLANON 68 MG IMPL ETONOGESTREL Inactive HYDROCODONE-ACETAMINOPHEN 5-325 MG TABS 1 PO tid PRN pain 5 HYDROCODONE-ACETAMINOPHEN 5-325 MG TABS 919912 HYDROCODONE-ACETAMIN OPHEN Inactive BACTRIM DS 800-160 MG TAB 1 tab by mouth twice daily 2 BACTRIM DS 800-160 MG TAB TRIMETHOPRIM-SULFAMETHOXAZOLE Inac tive CEPHALEXIN 500 MG CAPS 1 PO bid x 7 days CEPHALEXIN 500 MG CAPS 484204 CEPHALEXIN Inactive HYDROCODONE-ACETAMINOPHEN 5-325 MG TABS 1 tab by mouth every 6 hours as needed HYDROCODONE-ACETAMINOPHEN 5-325 MG TABS 658341 HYDROCODONE-ACETAMINOPHEN Inactive PROMETHAZINE-CODEINE 6.25-10 MG/5ML SYRP 1 tsp every 6 hrs prn c ough PROMETHAZINE-CODEINE 6.25-10 MG/5ML SYRP 166384 PROMETH AZINE-CODEINE Inactive IBUPROFEN 800 MG TAB 1 pill three times daily as needed for pain IBUPROFEN 800 MG TAB IBUPROFEN Inactive KEFLEX 500 MG CAP 1 tab po tid KEFLEX 500 MG CAP 456865 CEPHALEXIN Inactive HYDROCODONE-ACETAMINOPHEN 7.5-325 MG TABS 1 four times a day as needed for pain HYDROCODONE-ACETAMINOPHEN 7.5-325 MG TABS 039686 HYDROCODONE-ACETAMINOPHEN Inactive BACTRIM DS 800-160 MG TABS by mouth twice a day 11/05 BACTRIM DS 800-160 MG TABS SULFAMETHOXAZOLE-TRIMETHOPRIM Inactive IBUPROFEN 800 MG TABS 1 tid prn IBUPROFEN 800 MG TABS 589738 IBUPROFEN Inactive ENDOCET 10-325 MG TABS 1 q 6 hr prn ENDOC ET 10-325 MG TABS 3716612 OXYCODONE-ACETAMINOPHEN Inactive HYDROCODONE-ACETAMINOPHEN 7.5-325 MG TABS 1 by mouth e very 6 hours as needed for pain HYDROCODONE-ACETAMINOPHEN 7.5-325 MG TABS 865406 HYDROCODONE-ACETAMINOPHEN Inactive PERCOCET 7.5-325 MG TABS 1 PO q 8 hrs PRN pain PERCOCET 7.5-325 MG TABS 0675349 OXYCODONE-ACETAMINOPHEN Inactive LIDODERM 5 % PTCH One patch to painful area SC N. On for 12 hrs, off for 12 hrs. LIDODERM 5 % PTCH 8597576 LIDOCAINE Inactiv e PERCOCET 7.5-325 MG TABS 1 PO tid PRN pain PERCOCET 7.5- 325 MG TABS 9203492 OXYCODONE-ACETAMINOPHEN Inactive MOBIC 15 MG TABS 1 tab daily MOBIC 15 MG TABS 15 2695 MELOXICAM Inactive CYCLOBENZAPRINE HCL 10 MG TABS 1/2 - 1 tab PO tid PRN back p ain, muscle spasm CYCLOBENZAPRINE HCL 10 MG TABS 021102 CYCLOBENZA JOSEPH HCL Inactive LORATADINE 10 MG TABS 1 tablet by mouth daily LORATADINE 10 MG TABS 984040 LORATADINE Inactive AMOXICILLIN 875 MG TABS 1 tab by mouth twice daily 201 07/18/07 AMOXICILLIN 875 MG TABS 394991 AMOXICILLIN Inactive KEFLEX 500 MG CAP 1 po tid x 10 days KEFLEX 500 MG CAP 140046 CEPHALEXIN Inactive AMOXICILLIN 875 MG TABS 1 tab by mouth twice daily 201 07/19/27 AMOXICILLIN 875 MG TABS 338881 AMOXICILLIN Inactive AMOXICILLIN 875 MG TABS 1 tab by mouth twice daily 201 08/09/13 AMOXICILLIN 875 MG TABS 037859 AMOXICILLIN Inactive CIPRO 500 MG TAB 1 tablet by mouth twice daily CIPRO 500 MG TAB 114034 CIPROFLOXACIN HCL Inactive BACTRIM DS 800-160 MG TAB 1 tab by mouth twice daily 2 BACTRIM DS 800-160 MG TAB TRIMETHOPRIM-SULFAMETHOXAZOLE Inac tive LEVAQUIN 500 MG TABS 1 PO q day x 7 days LEVAQUIN 500 MG TABS 863806 LEVOFLOXACIN Inactive CLINDAMYCIN HCL 300 MG CAPS 1 po QID x 7 days CLINDAMYCIN HCL 300 MG CAPS 613995 CLINDAMYCIN HCL Inactive AUGMENTIN 875-125 MG TAB 1 tab by mouth twice daily with food 20 22/05/07 AUGMENTIN 875-125 MG TAB 555512 AMOXICILLIN-POT CLAVULA [place] Inactive DIFLUCAN 150 MG TAB 1 qODay x 2 doses DIFLUCAN 150 MG TAB 364950 FLUCONAZOLE Inactive Advance Directives Directive Description Start Date PERMISSION TO SHARE Immunizations Vaccine Administration Date Value Standard Alf cription Seasonal influenza vaccine, injectable, containing preservative, for > 3 years old (Afluria, FluLaval, Fluzone, Fluvirin, Fluarix, Agriflu(>= 18 yo)) Fluzone (>3 yrs.) [[id number]] Influenza, seasonal, inject able Seasonal influenza vaccine, injectable, preservative free, for > 3 years old (Afluria, FluLaval, Fluzone, Fluvirin, Fluarix, Agriflu(>= 18 yo)) Fluzone preservative free (>3 yrs.) [[id number]] Influenza, seasonal, injectable, preservative free Seasonal influenza vaccine, injectable, containing preservative, for > 3 years old (Afluria, FluLaval, Fluzone, Fluvirin, Fluarix, Agriflu(>= 18 yo)) Fluzone (>3 yrs.) [[id number]] Influenza, seasonal, inject able Seasonal influenza vaccine, injectable, containing preservative, for > 3 years old (Afluria, FluLaval, Fluzone, Fluvirin, Fluarix, Agriflu(>= 18 yo)) Fluzone (>3 yrs.) [[id number]] Influenza, seasonal, inject able dT (Diphtheria and [...] ... - Chemistry sodium, serum 140 mmol/L 800-667 1284/02/24 potassium, serum 4.3 mmol/L 3.5-5.2 chloride, serum [...] 4.3-6.0 Lab Report: T3, TOTAL, INSULIN - Household Appliance [employer]ic ry triiodothyronine (T3), serum 78 ng/dL 76-181 Office Visit: low blood sugars - Chemis try cholesterol, target level 200 mg/dL triglyceride, target level 200 mg/dL HDL cholesterol, serum, target level 35 mg/dL LDL target level 100 mg/dL Encounters Code Encounter Date Provider Facility CPT-69071 Level 3 Est. Patient 14:03:08 POTATO PICKER Abdirahman Rios MD [facility] CPT-66839 Level 3 Est. Patient 18:12:34 CDT Shola Wright [facility] CPT-70210 Level 3 Est. Patient 19:34:46 CDT Shola Wright [facility] CPT-80332 Level 3 Est. Patient 14:19:37 CDT Abdirahman Rios MD [facility] CPT-44305 Level 3 Est. Patient 14:11:58 CDT Kalpesh goins MD [facility] CPT-32804 Level 3 Est. Patient 16:50:00 CDT Michelle BRADFORDP [facility] CPT-15946 Level 3 Est. Patient 17:11:32 POTATO PICKER Brandie bates MD PhD [facility] CPT-16444 Level 3 Est. Patient 16:31:47 POTATO PICKER Shola Wright [facility] CPT-75801 Level 3 Est. Patient 17:51:10 POTATO PICKER Abhinav Galvan MD [facility] CPT-28646 Level 4 Est. Patient 12:54:56 POTATO PICKER Kalpesh goins MD [facility]-60923 Level 4 Est. Patient 12:53:56 POTATO PICKER Kalpesh goins MD [facility] CPT-81058 Level 3 Est. Patient 17:56:58 CDT Shola Wright [facility] CPT-22550 Level 3 Est. Patient 14:26:20 CDT Janak butcher [facility] CPT-57848 Level 3 Est. Patient 09:38:41 CDT Shola Wright [facility] CPT-74795 Level 3 Est. Patient 14:45:26 CDT Edilberto tiwari [facility] CPT-24901 Level 3 Est. Patient 10:51:33 [facility] Level 3 Est. Patient 11:57:55 POTATO PICKER Shola Wright [facility] CPT-94213 Level 3 Est. Patient 09:53:33 POTATO PICKER Edilberto tiwari [facility] CPT-63243 Level 3 Est. Patient 14:42:54 POTATO PICKER Abhinav Galvan MD [facility] CPT-27297 Level 3 Est. Patient 15:10:02 CDT Janak Miln er PA [facility] CPT-73928 Level 3 Est. Patient 15:20:20 CDT Theo dennis MD [facility] CPT-01721 Level 2 Est. Patient 14:08:57 CDT Kalpesh goins MD [facility] CPT-22372 Level 3 Est. Patient 13:56:19 CDT Abdirahman Rios MD [facility] CPT-48612 Level 3 Est. Patient 13:59:37 CDT Abdirahman Rios MD [facility] CPT-61285 Level 2 Est. Patient 14:44:59 CDT Kalpesh goins MD [facility] CPT-92147 Level 3 Est. Patient 06:06:23 CDT Edilberto tiwari DO [facility] CPT-70646 Level 3 Est. Patient 15:23:54 CDT Abdirahman Rios MD [facility] CPT-70544 Level 3 Est. Patient 15:43:49 CDT Abdirahman Rios MD [facility] CPT-86251 Level 3 Est. Patient 12:46:47 POTATO PICKER Abdirahman Rios MD [facility] CPT-55657 Level 3 Est. Patient 08:13:35 POTATO PICKER Abdirahman Rios MD [facility] CPT-43795 Level 2 Est. Patient 09:36:42 POTATO PICKER Abdirahman Rios MD [facility] CPT-06986 Level 3 Est. Patient 10:56:43 CDT Abdirahman Rios MD [facility] CPT-70761 Level 3 Est. Patient 18:24:52 CDT Abdirahman Rios MD [facility] CPT-79750 Level 3 Est. Patient 13:27:22 CDT Abdirahman Rios MD [facility] Procedures Code Procedure Name Date Entry Date Standard Desc ription CPT-01057 Immunization Single Admin 16:41:53 CDT 2013 CPT-61401 Fluzone Quadrivalent Intramuscular Suspe nsion 0.5 ML 16:41:53 CDT CPT-OV Office Visit 16:39:18 CDT CPT-OV Office Visit 16:16:36 CDT CPT-OV Office Visit 15:34:48 CDT CPT-26982 Postop F/U Visit 14:50:12 CDT CPT-94579 Postop F/U Visit 14:41:10 CDT CPT-28065 Venipuncture Draw Fee 11:38:04 POTATO PICKER CPT-83287 Postop F/U Visit 19:02:59 POTATO PICKER CPT-46678 Postop F/U Visit 12:04:54 POTATO PICKER CPT-90949 Administration single or combination vac cine inc oral 15:56:43 CDT CPT-09477 Influenza split virus > age 3 15:56:43 CDT CPT-21188 Hand comp min 3V 14:25:19 CDT CPT-08812 Postop F/U Visit 21:40:51 CDT CPT-40744 Postop F/U Visit 10:58:43 CDT CPT-09711 Administration single or combination vac cine inc oral 12:33:54 POTATO PICKER CPT-70836 Influenza Preservative Free split virus >age 3 12:33:54 POTATO PICKER CPT-96997 Administration single or combination vac cine inc oral 09:30:51 CDT CPT-30822 Influenza split virus > age 3 09:30:51 CDT CPT-69775 Postop F/U Visit 15:14:53 CDT CPT-91209 Postop F/U Visit 13:50:14 CDT CPT-18614 Postop F/U Visit 13:34:52 CDT CPT-OV Office Visit 16:55:03 CDT CPT-67680 [place] of cervix w bx ECC 13:32:50 CDT 10/19 CPT-J1885 Toradol 60 mg (Ketorolac) 15:31:59 CDT 2011 CPT-J1885 Toradol 60 mg (Ketorolac) 15:23:54 CDT 2011 CPT-55039 Visit 11:34:37 POTATO PICKER CPT-97112 Visit 10:52:39 POTATO PICKER CPT-52716 Visit 10:12:02 POTATO PICKER CPT-10020 Visit 11:22:43 POTATO PICKER CPT-69232 Visit 11:24:12 POTATO PICKER CPT-94085 Visit 10:47:05 POTATO PICKER CPT-OV Office Visit 10:26:16 POTATO PICKER CPT-OV Office Visit 15:34:31 POTATO PICKER CPT-63064 Visit 10:42:08 POTATO PICKER CPT-38531 Visit 10:52:45 POTATO PICKER CPT-000 Give Appropriate Flu Vaccine 16:56:41 CDT 2 CPT-02777 Administration single or combination vac cine inc oral 10:33:21 CDT CPT-60420 Influenza split virus > age 3 10:33:21 CDT CPT-23681 Visit 13:23:09 CDT CPT-02981 Visit 18:24:52 CDT CPT-37710 Sono OB comp > 14 weeks 12:07:49 CDT 04/07
--- OUTSIDE RECORDS SUMMARY | 2020-01-18 17:21 | XMS REPORT | Clinical Summary ---
[...] by mouth twice a day 11/05 SULFAMETHOXAZOLE-TRIMETHOPRIM [id number] No Longer Active Good Julian MD Active IBUPROFEN 800 MG TABS 1 tid prn IBUPROFEN 15486956657 Active Good Julian MD Active ENDOCET 10-325 MG TABS 1 q 6 hr prn OXYCODONE-A CETAMINOPHEN 41293124248 Active Shola MCGILL Active HYDROCODONE-ACETAMINOPHEN 7.5-325 MG TABS 1 four times a day as needed for pain HYDROCODONE-ACETAMINOPHEN 07974737609 No Longer Activ crystal Julian MD Active KEFLEX 500 MG CAP 1 tab po tid CEPHALEXIN 236898 85454 No Longer Active Hira Moser APRN Active IBUPROFEN 800 MG TAB 1 pill three times daily as needed for pain IBUPROFEN 79891831681 No Longer Active Kalpesh Dong MD Active PROMETHAZINE-CODEINE 6.25-10 MG/5ML SYRP 1 tsp every 6 hrs prn c ough PROMETHAZINE-CODEINE 19799600384 No Longer Active Klapesh Carr Active ALPRAZOLAM 0.5 MG TABS 1 PO bid PRN ALPRAZOLAM 820445 21913 Active Shola MCGILL Active HYDROCODONE-ACETAMINOPHEN 5-325 MG TABS 1 tab by mouth every 6 hours as needed HYDROCODONE-ACETAMINOPHEN 49253558181 No Longer Activ e Shola MCGILL Active CEPHALEXIN 500 MG CAPS 1 PO bid x 7 days CEPHAL EXIN 21722486895 No Longer Active Shola MCGILL Active BACTRIM DS 800-160 MG TAB 1 tab by mouth twice daily 2 TRIMETHOPRIM-SULFAMETHOXAZOLE 59731504877 No Longer Active Kalpesh Dong MD Active HYDROCODONE-ACETAMINOPHEN 5-325 MG TABS 1 PO tid PRN pain 5 HYDROCODONE-ACETAMINOPHEN 78203472742 No Longer Active Abhinav Galvan MD Active IMPLANON 68 MG IMPL IMPLANTED IN LEFT ARM ETONO GESTREL 99139624148 No Longer Active 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 SAFETY MANAGER Active AMOXICILLIN 500 MG TABS 2 tabs PO bid x 10 d AM OXICILLIN 86616652089 No Longer Active Kalpesh Dong MD Active LEVAQUIN 500 MG TABS 1 PO q day x 7 days LEVOFL OXACIN 61827286657 No Longer Active Shola MCGILL Active PROAIR HFA 108 (90 BASE) MCG/ACT AERS 2 puff q 4-6 hrs PRN ALBUTEROL SULFATE 80123384785 Active Shola MCGILL Acti ve FIORICET 50-325-40 MG TABS 2 PO q 8 hrs PRN FOSTER STIQWSEWAL-TRLT-EVNNUKLQ 12182094690 Active Abdirahman Rios MD Active AMITRIPTYLINE HCL 25 MG TAB 1 tab by mouth daily 60 minutes before bedtime AMITRIPTYLINE HCL 43993477380 No Longer Active Shola MCGILL Active LORTAB 5 5-500 MG TABS 1/2 to 1 tablet by mouth go ry 6 hours as needed for pain HYDROCODONE-ACETAMINOPHEN 27236463817 No Longer Active Shola MCGILL Active CEPHALEXIN 500 MG TABS Take one by mouth four times daily, morning, noon, early evening and bedtime. CEPHALEXIN 59905034742 No Long er Active Hira Moser SAFETY MANAGER Active TYLENOL/CODEINE #3 300-30 MG TAB 1-2 po q6hr PRN Pain ACETAMINOPHEN-CODEINE 93876368458 No Longer Active Edilberto Marino DO Active PRISTIQ 50 MG PH54A-BMD 1 po qd DESVENLAFAXI NE SUCCINATE 53362931801 No Longer Active Edilberto Marino DO Active PENICILLIN V POTASSIUM 500 MG TAB 1 four times a day 2 PENICILLIN V POTASSIUM 34322962244 No Longer Active Edilberto Marino DO Active DOXYCYCLINE HYCLATE 100 MG CAPS Take one (1) tablet by mouth twice a day DOXYCYCLINE HYCLATE 13436222825 No Longer Active Ronnie Galvan MD Active HYDROCODONE-ACETAMINOPHEN 5-325 MG TABS 1 po q 6hr PRN Pain 2011 HYDROCODONE-ACETAMINOPHEN 55991194932 No Longer Active Patri joan Perez RN Active BACTRIM DS 800-160 MG TAB 1 tab by mouth twice daily 2 TRIMETHOPRIM-SULFAMETHOXAZOLE 69798810680 No Longer Active Kalpesh Dong MD Active LORTAB 5 5-500 MG TABS 1/2 to 1 tablet by mouth go ry 4 hours as needed for pain HYDROCODONE-ACETAMINOPHEN 36981355113 No Longer Active Kalpesh Dong MD Active GENERESS FE 0.8-25 MG-MCG CHEW Take one by mouth daily NORETHIN-ETH ESTRADIOL-FE 56085878703 No Longer Active Kalpesh Dong MD Active HYDROCODONE-ACETAMINOPHEN 7.5-500 MG TABS 1-2 every 4 hours as needed HYDROCODONE-ACETAMINOPHEN 44252213593 No Longer Activ e Kalpesh Dong MD Active FERROUS SULFATE 325 (65 FE) MG TABS 1 tablet by mouth twice yung y FERROUS SULFATE 41120250016 No Longer Active Kalpesh Dong MD Active IBUPROFEN 600 MG TAB 1 po q6-8hr PRN IBUPROFEN 25657063040 No Longer Active Kalpesh Dong MD Active SPIRONOLACTONE 25 MG TAB 1 tablet by mouth daily 01/22 SPIRONOLACTONE 88712942498 No Longer Active Kalpesh Dong MD Acti ve HYDROCODONE-ACETAMINOPHEN 7.5-325 MG TABS 1 po QID PRN Pain 2011 HYDROCODONE-ACETAMINOPHEN 98452285943 No Longer Active Kalpesh Dong MD Active CLINDAMYCIN HCL 300 MG CAPS 1 po q6hr x 7 days CLINDAMYCIN HCL 00682484378 No Longer Active Edilberto Marino DO Active PREDNISONE 20 MG TAB 2 tabs daily for 4 days, 1 t ab daily for 4 days, 1/2 tab daily for 4 days PREDNISONE 14411902192 No Longer Active Edilberto Marino DO Active PERCOCET 5-325 MG TABS 1 tablet by mouth every 6 hours as ne eded for pain OXYCODONE-ACETAMINOPHEN 29919490127 No Longer Active Abdirahman Rios MD Active VITAMINS TABS Take one by mouth daily MV & MIN W/FE-FA TABS 98202354237 No Longer Active Abdirahman Rios MD Active LUIS 3-0.02 MG TABS 1 tablet by mouth daily as directed DROSPIRENONE-ETHINYL ESTRADIOL 01926207090 No Longer Active Abdirahman Rios MD Active LORATADINE 10 MG TABS 1 tablet by mouth daily L ORATADINE 36240490703 No Longer Active Kalpesh Dong MD Active HYDROCODONE-ACETAMINOPHEN 5-325 MG TABS 1 po q 6hr PRN Pain 2010 HYDROCODONE-ACETAMINOPHEN 58982913585 No Longer Active Edilberto Marino DO Active BACTRIM DS 800-160 MG TAB 1 tab by mouth twice daily 2 TRIMETHOPRIM-SULFAMETHOXAZOLE 09334375835 No Longer Active Abdirahman Rios MD Active 28-0.8 MG TABS Take one by mouth daily 09/20 VIT-FE FUMARATE-FA 51317083799 No Longer Active Abdirahman Rios MD Active CIPRO 500 MG TAB 1 tablet by mouth twice daily CIPROFLOXACIN HCL 33341631725 No Longer Active Abdirahman Rios MD Active BENADRYL 25 MG CAP 1 po q8hr PRN Congestion DIPHENHYDRAMINE HCL 70896004669 No Longer Active Abdirahman Rios MD Active ZOLOFT 50 MG TAB 1 po qd SERTRALINE HCL 102582 22510 No Longer Active Abdirahman Rios MD Active AMOXICILLIN 875 MG TABS 1 tab by mouth twice daily 201 08/09/13 AMOXICILLIN 79026831663 No Longer Active Abdirahman Rios MD Activ e AMOXICILLIN 875 MG TABS 1 tab by mouth twice daily 201 07/19/27 AMOXICILLIN 30864568987 No Longer Active Abdirahman Rios MD Activ e BACTRIM DS 800-160 MG TAB 2 tab by mouth twice daily 2 TRIMETHOPRIM-SULFAMETHOXAZOLE 22947820806 No Longer Active Abdirahman Rios MD Active KEFLEX 500 MG CAP 1 po tid x 10 days CEPHALEXIN 26559895375 No Longer Active Abdirahman Rios MD Active AMOXICILLIN 875 MG TABS 1 tab by mouth twice daily 201 07/18/07 AMOXICILLIN 71522668779 No Longer Active Abdirahman Rios MD Activ e BACTRIM DS 800-160 MG TAB 2 tab by mouth twice daily 2 BACTRIM DS 800-160 MG TAB TRIMETHOPRIM-SULFAMETHOXAZOLE Inactive ZOLOFT 50 MG TAB 1 po qd ZOLOFT 50 MG TAB 3129 41 SERTRALINE HCL Inactive BENADRYL 25 MG CAP 1 po q8hr PRN Congestion BENADRYL 25 MG CAP 3272061 DIPHENHYDRAMINE HCL Inactive 28-0.8 MG TABS Take one by mouth daily 09/20 28-0.8 MG TABS VIT-FE FUMARATE-FA Inactive HYDROCODONE-ACETAMINOPHEN 5-325 MG TABS 1 po q 6hr PRN Pain 2010 HYDROCODONE-ACETAMINOPHEN 5-325 MG TABS 733293 HYDROCODONE-ACETAMINOPHEN Inactive LORATADINE 10 MG TABS 1 tablet by mouth daily LORATADINE 10 MG TABS 585932 LORATADINE Inactive LUIS 3-0.02 MG TABS 1 tablet by mouth daily as directed LUIS 3-0.02 MG TABS DROSPIRENONE-ETHINYL ESTRADIOL Inactive VITAMINS TABS Take one by mouth daily VITAMINS TABS MV & MIN W/FE-FA TABS Inactive PERCOCET 5-325 MG TABS 1 tablet by mouth every 6 hours as ne eded for pain PERCOCET 5-325 MG TABS 5319733 OXYCODONE-ACETAMIN OPHEN Inactive PREDNISONE 20 MG TAB 2 tabs daily for 4 days, 1 t ab daily for 4 days, 1/2 tab daily for 4 days PREDNISONE 20 MG TAB 645104 PREDNISON E Inactive CLINDAMYCIN HCL 300 MG CAPS 1 po q6hr x 7 days CLINDAMYCIN HCL 300 MG CAPS 687625 CLINDAMYCIN HCL Inactive HYDROCODONE-ACETAMINOPHEN 7.5-325 MG TABS 1 po QID PRN Pain 2011 HYDROCODONE-ACETAMINOPHEN 7.5-325 MG TABS 604837 HYDROCODONE-ACETAMINOPHEN Inactive SPIRONOLACTONE 25 MG TAB 1 tablet by mouth daily 01/22 SPIRONOLACTONE 25 MG TAB 192845 SPIRONOLACTONE Inactive IBUPROFEN 600 MG TAB 1 po q6-8hr PRN IBUPROFEN 600 MG TAB 092585 IBUPROFEN Inactive FERROUS SULFATE 325 (65 FE) MG TABS 1 tablet by mouth twice yung y FERROUS SULFATE 325 (65 FE) MG TABS 671668 FERROUS SULF ATE Inactive HYDROCODONE-ACETAMINOPHEN 7.5-500 MG TABS 1-2 every 4 hours as needed HYDROCODONE-ACETAMINOPHEN 7.5-500 MG TABS 869151 HYDROCODONE-ACETAMINOPHEN Inactive GENERESS FE 0.8-25 MG-MCG CHEW [...] PRN Pain 2011 HYDROCODONE-ACETAMINOPHEN 5-325 MG TABS 869312 HYDROCODONE-ACETAMINOPHEN Inactive DOXYCYCLINE HYCLATE 100 MG CAPS Take one (1) tablet by mouth twice a day DOXYCYCLINE HYCLATE 100 MG CAPS 287491 DOXYCYCLINE HYCLATE Inactive PENICILLIN V POTASSIUM 500 MG TAB 1 four times a day 2 PENICILLIN V POTASSIUM 500 MG TAB 856042 PENICILLIN V POTASSIUM Lubec ctive PRISTIQ 50 MG [id number] 1 po qd PRISTIQ 50 MG [id number] DESVENLAFAXINE SUCCINATE Inactive TYLENOL/CODEINE #3 300-30 MG TAB 1-2 po q6hr PRN Pain TYLENOL/CODEINE #3 300-30 MG TAB 782971 ACETAMINOPHEN-CODEINE Inact krishna CEPHALEXIN 500 MG TABS Take one by mouth four times daily, morning, noon, early evening and bedtime. CEPHALEXIN 500 MG TABS 898969 CEPHALEXIN Inactive LORTAB 5 5-500 MG TABS 1/2 to 1 tablet by mouth go ry 6 hours as needed for pain LORTAB 5 5-500 MG TABS HYDROCODONE-A CETAMINOPHEN Inactive AMITRIPTYLINE HCL 25 MG TAB 1 tab by mouth daily 60 minutes before bedtime AMITRIPTYLINE HCL 25 MG TAB 719013 AMITRIPTYLINE HCL Inactive AMOXICILLIN 500 MG TABS 2 tabs PO bid x 10 d 7 AMOXICILLIN 500 MG TABS 988256 AMOXICILLIN Inactive IMPLANON 68 MG IMPL IMPLANTED IN LEFT ARM IMPLANON 68 MG IMPL ETONOGESTREL Inactive HYDROCODONE-ACETAMINOPHEN 5-325 MG TABS 1 PO tid PRN pain 5 HYDROCODONE-ACETAMINOPHEN 5-325 MG TABS 321164 HYDROCODONE-ACETAMIN OPHEN Inactive BACTRIM DS 800-160 MG TAB 1 tab by mouth twice daily 2 BACTRIM DS 800-160 MG TAB TRIMETHOPRIM-SULFAMETHOXAZOLE Inac tive CEPHALEXIN 500 MG CAPS 1 PO bid x 7 days CEPHALEXIN 500 MG CAPS 210484 CEPHALEXIN Inactive HYDROCODONE-ACETAMINOPHEN 5-325 MG TABS 1 tab by mouth every 6 hours as needed HYDROCODONE-ACETAMINOPHEN 5-325 MG TABS 907973 HYDROCODONE-ACETAMINOPHEN Inactive PROMETHAZINE-CODEINE 6.25-10 MG/5ML SYRP 1 tsp every 6 hrs prn c ough PROMETHAZINE-CODEINE 6.25-10 MG/5ML SYRP 486803 PROMETH AZINE-CODEINE Inactive IBUPROFEN 800 MG TAB 1 pill three times daily as needed for pain IBUPROFEN 800 MG TAB 183569 IBUPROFEN Inactive KEFLEX 500 MG CAP 1 tab po tid KEFLEX 500 MG CAP 971758 CEPHALEXIN Inactive HYDROCODONE-ACETAMINOPHEN 7.5-325 MG TABS 1 four times a day as needed for pain HYDROCODONE-ACETAMINOPHEN 7.5-325 MG TABS 796447 HYDROCODONE-ACETAMINOPHEN Inactive BACTRIM DS 800-160 MG TABS by mouth twice a day 11/05 BACTRIM DS 800-160 MG TABS SULFAMETHOXAZOLE-TRIMETHOPRIM Inactive AMOXICILLIN 875 MG TABS 1 tab by mouth twice daily 201 07/18/07 AMOXICILLIN 875 MG TABS 637755 AMOXICILLIN Inactive KEFLEX 500 MG CAP 1 po tid x 10 days KEFLEX 500 MG CAP 678478 CEPHALEXIN Inactive AMOXICILLIN 875 MG TABS 1 tab by mouth twice daily 201 07/19/27 AMOXICILLIN 875 MG TABS 272160 AMOXICILLIN Inactive AMOXICILLIN 875 MG TABS 1 tab by mouth twice daily 08/09/13 AMOXICILLIN 875 MG TABS 186668 AMOXICILLIN Inactive CIPRO 500 MG TAB 1 tablet by mouth twice daily CIPRO 500 MG TAB 530009 CIPROFLOXACIN HCL Inactive BACTRIM DS 800-160 MG TAB 1 tab by mouth twice daily 2 BACTRIM DS 800-160 MG TAB TRIMETHOPRIM-SULFAMETHOXAZOLE Inac tive LEVAQUIN 500 MG TABS 1 PO q day x 7 days LEVAQUIN 500 MG TABS 480201 LEVOFLOXACIN Inactive Advance Directives Directive Description Start Date PERMISSION TO SHARE Immunizations Vaccine Administration Date Value Standard Alf cription Seasonal influenza vaccine, injectable, containing preservative, for > 3 years old (Afluria, FluLaval, Fluzone, Fluvirin, Fluarix, Agriflu(>= 18 yo)) Fluzone (>3 yrs.) [QCQ413] Influenza, seasonal, inject able Seasonal influenza vaccine, injectable, preservative free, for > 3 years old (Afluria, FluLaval, Fluzone, Fluvirin, Fluarix, Agriflu(>= 18 yo)) Fluzone preservative free (>3 yrs.) [[id number]] Influenza, seasonal, injectable, preservative free Seasonal influenza vaccine, injectable, containing preservative, for > 3 years old (Afluria, FluLaval, Fluzone, Fluvirin, Fluarix, Agriflu(>= 18 yo)) Fluzone (>3 yrs.) [[id number]] Influenza, seasonal, inject able Seasonal influenza vaccine, injectable, containing preservative, for > 3 years old (Afluria, FluLaval, Fluzone, Fluvirin, Fluarix, Agriflu(>= 18 yo)) Fluzone (>3 yrs.) [[id number]] Influenza, seasonal, inject able dT (Diphtheria and [...] mg/dL Chart Maintenance: Outside labs entered on [employer] - Hematology leukocyte count, blood 8.3 10*3/mm3 erythrocyte (RBC) count 5.2 10*6/mm3 hemoglobin, blood 14.2 g/dL hematocrit, blood 42.6 % mean corpuscular volume, RBC 82.4 fL mean corpuscular hemoglobin, RBC 27.5 pg red blood cell distribution width 12.9 % platelet count 316 10*3/mm3 Lab Report: CBC W/DIFF, Comp. Metabolic Panel, Thyroid Stimulating [place] ... - Chemistry sodium, serum 140 mmol/L 759-556 1299/02/24 potassium, serum 4.3 mmol/L 3.5-5.2 chloride, serum [...] 4.3-6.0 Lab Report: T3, TOTAL, INSULIN - [employer]accarat Manager ry triiodothyronine, serum 78 ng/dL 76-181 [...] mg/dL Encounters Code Encounter Date Provider Facility CPT-03092 Level 3 Est. Patient 14:11:58 CDT Kalpesh goins MD [facility] CPT-34331 Level 3 Est. Patient 16:50:00 CDT Michelle MERCADO [facility] CPT-58310 Level 3 Est. Patient 17:11:32 COAL INSPECTOR Brandie bates MD PhD [facility] CPT-68413 Level 3 Est. Patient 16:31:47 COAL INSPECTOR Shola MCGILL [facility] CPT-91728 Level 3 Est. Patient 17:51:10 COAL INSPECTOR Abhinav Galvan MD [facility] CPT-32826 Level 4 Est. Patient 12:54:56 COAL INSPECTOR Kalpesh goins MD [facility] CPT-36346 Level 4 Est. Patient 12:53:56 COAL INSPECTOR Kalpesh goins MD [facility] CPT-19892 Level 3 Est. Patient 17:56:58 CDT Shola MCGILL [facility] CPT-78122 Level 3 Est. Patient 14:26:20 CDT Janak butcher [facility] CPT-55974 Level 3 Est. Patient 09:38:41 CDT Shola [facility] CPT-46605 Level 3 Est. Patient 14:45:26 CDT Edilberto tiwari [facility] CPT-53698 Level 3 Est. Patient 10:51:33 CDT Hira muniz [facility] CPT-34845 Level 3 Est. Patient 11:57:55 COAL INSPECTOR Shola Thao [facility] CPT-60458 Level 3 Est. Patient 09:53:33 COAL INSPECTOR Edilberto tiwari [facility] CPT-16957 Level 3 Est. Patient 14:42:54 COAL INSPECTOR Abhinav Galvan MD [facility] CPT-41120 Level 3 Est. Patient 15:10:02 CDT Janak butcher [facility] CPT-50244 Level 3 Est. Patient 15:20:20 CDT Theo dennis MD [facility] CPT-28407 Level 2 Est. Patient 14:08:57 CDT Kalpesh goins MD [facility] CPT-28927 Level 3 Est. Patient 13:56:19 CDT Abdirahman Rios MD [facility] CPT-19371 Level 3 Est. Patient 13:59:37 CDT Abdirahman Rios MD [facility] CPT-59122 Level 2 Est. Patient 14:44:59 CDT Kalpesh goins MD -84392 Level 3 Est. Patient 06:06:23 CDT Edilberto tiwari [facility] CPT-56218 Level 3 Est. Patient 15:23:54 CDT Abdirahman Rios MD [facility] CPT-54384 Level 3 Est. Patient 15:43:49 CDT Abdirahman Rios MD [facility] CPT-43942 Level 3 Est. Patient 12:46:47 COAL INSPECTOR Abdirahman Rios MD [facility] CPT-15737 Level 3 Est. Patient 08:13:35 COAL INSPECTOR Abdirahman Rios MD [facility] CPT-16073 Level 2 Est. Patient 09:36:42 COAL INSPECTOR Abdirahman Rios MD [facility] CPT-07102 Level 3 Est. Patient 10:56:43 CDT Abdirahman Rios MD [facility] CPT-69736 Level 3 Est. Patient 18:24:52 CDT Abdirahman Rios MD [facility] CPT-91561 Level 3 Est. Patient 13:27:22 CDT Abdirahman Rios MD [facility] Procedures Code Procedure Name Date Entry Date Standard Desc ription CPT-OV Office Visit 15:34:48 CDT CPT-40205 Postop F/U Visit 14:50:12 CDT CPT-29817 Postop F/U Visit 14:41:10 CDT CPT-83694 Venipuncture Draw Fee 11:38:04 COAL INSPECTOR CPT-41658 Postop F/U Visit 19:02:59 COAL INSPECTOR CPT-77657 Postop F/U Visit 12:04:54 COAL INSPECTOR CPT-91248 Administration single or combination vac cine inc oral 15:56:43 CDT CPT-83683 Influenza split virus > age 3 15:56:43 CDT CPT-65392 Hand comp min 3V 14:25:19 CDT CPT-62268 Postop F/U Visit 21:40:51 CDT CPT-86736 Postop F/U Visit 10:58:43 CDT CPT-47214 Administration single or combination vac cine inc oral 12:33:54 COAL INSPECTOR CPT-88779 Influenza Preservative Free split virus >age 3 12:33:54 COAL INSPECTOR CPT-30251 Administration single or combination vac cine inc oral 09:30:51 CDT CPT-42404 Influenza split virus > age 3 09:30:51 CDT CPT-33142 Postop F/U Visit 15:14:53 CDT CPT-49288 Postop F/U Visit 13:50:14 CDT CPT-05548 Postop F/U Visit 13:34:52 CDT CPT-OV Office Visit 16:55:03 CDT CPT-94384 [place] of cervix w bx ECC 13:32:50 CDT 10/19 CPT-J1885 Toradol 60 mg (Ketorolac) 15:31:59 CDT 2011 CPT-J1885 Toradol 60 mg (Ketorolac) 15:23:54 CDT 2011 CPT-22337 Visit 11:34:37 COAL INSPECTOR CPT-73695 Visit 10:52:39 COAL INSPECTOR CPT-45194 Visit 10:12:02 COAL INSPECTOR CPT-60974 Visit 11:22:43 COAL INSPECTOR CPT-67665 Visit 11:24:12 COAL INSPECTOR CPT-69951 Visit 10:47:05 COAL INSPECTOR CPT-OV Office Visit 10:26:16 COAL INSPECTOR CPT-OV Office Visit 15:34:31 COAL INSPECTOR CPT-64500 Visit 10:42:08 COAL INSPECTOR CPT-05410 Visit 10:52:45 COAL INSPECTOR CPT-000 Give Appropriate Flu Vaccine 16:56:41 CDT 2 CPT-97901 Administration single or combination vac cine inc oral 10:33:21 CDT CPT-39949 Influenza split virus > age 3 10:33:21 CDT CPT-92871 Visit 13:23:09 CDT CPT-18081 Visit 18:24:52 CDT CPT-51442 Sono OB comp > 14 weeks 12:07:49 CDT 04/07
--- OUTSIDE RECORDS SUMMARY | 2020-01-18 17:22 | XMS REPORT | Clinical Summary ---
Author Author Admin, Jeri Rashid Organization [facility] Address Unknown Phone Unavailable Allergies, Adverse [...] Good Julian MD HEADACHE ICD-784.0 Inactive Good coliler MD HAND PAIN, RIGHT ICD-729.5 Inactive Good [...] 1 every 6 hours as needed OXYCODONE-ACETAMINOPHEN [id number] No Longer Active Shola MCGILL Active LC-5 LIDOCAINE 5 % CREA apply 1 time daily to affected area 2013 LIDOCAINE (ANORECTAL) [id number] No Longer Active Hira muniz [employer]D ACCOUNTING MANAGER Active HYDROCODONE-ACETAMINOPHEN 5-325 MG TABS 2 tablets by m outh every 8 hours as needed for pain HYDROCODONE-ACETAMINOPHEN 60351692181 Acti ve Shola MCGILL Active HYDROCODONE-ACETAMINOPHEN 10-325 MG TABS 1 by mouth ev chaka 8 hours as needed for pain HYDROCODONE-ACETAMINOPHEN 41325495234 No Longer Active Jillina Frazell [employer]D ACCOUNTING MANAGER Active LORATADINE 10 MG TABS 1 tablet by mouth daily L ORATADINE 02211415271 No Longer Active Jillina Frazell [employer]D ACCOUNTING MANAGER Active DIFLUCAN 150 MG TAB 1 qODay x 2 doses FLUCONAZO LE 99836540044 No Longer Active Jillina Frazell [employer]D ACCOUNTING MANAGER Active CYCLOBENZAPRINE HCL 10 MG TABS 1/2 - 1 tab PO tid PRN back p ain, muscle spasm CYCLOBENZAPRINE HCL 59423703486 No Longer Active Karen siri Frazell FUND ACCOUNTING MANAGER Active AUGMENTIN 875-125 MG TAB 1 tab by mouth twice daily with food 20 22/05/07 AMOXICILLIN-POT CLAVULANATE 35120641476 No Longer Active Loida Rios MD Active MOBIC 15 MG TABS 1 tab daily MELOXICAM 117825484 14 No Longer Active Abdirahman Rios MD Active PERCOCET 7.5-325 MG TABS 1 PO tid PRN pain OXYCODONE-ACETAMINOPHEN 77284017234 No Longer Active Abdirahman Rios MD Active LIDODERM 5 % PTCH One patch to painful area [place] N. On for 12 hrs, off for 12 hrs. LIDOCAINE 13472609098 No Longer Active Abdirahman Rios MD Active PERCOCET 7.5-325 MG TABS 1 PO q 8 hrs PRN pain OXYCODONE-ACETAMINOPHEN 13616011467 No Longer Active Shola MCGILL Active HYDROCODONE-ACETAMINOPHEN 7.5-325 MG TABS 1 by mouth e very 6 hours as needed for pain HYDROCODONE-ACETAMINOPHEN 85191415703 No Longer Active Good Julian MD Active CLINDAMYCIN HCL 300 MG CAPS 1 po QID x 7 days CLINDAMYCIN HCL 93047746346 No Longer Active Abdirahman Rios MD Activ e BACTRIM DS 800-160 MG TABS 1 po BID x 7 days 5 SULFAMETHOXAZOLE-TRIMETHOPRIM 34038593067 No Longer Active Abdirahman Rios MD Active ENDOCET 10-325 MG TABS 1 q 6 hr prn OXYCODONE-ACETAMINOPHEN 07050747673 No Longer Active Abdirahman Rios MD Active IBUPROFEN 800 MG TABS 1 tid prn IBUPROFEN 343453 81947 No Longer Active Abdirahman Rios MD Active BACTRIM DS 800-160 MG TABS by mouth twice a day 11/05 SULFAMETHOXAZOLE-TRIMETHOPRIM 42735233963 No Longer Active Good Julian MD Active HYDROCODONE-ACETAMINOPHEN 7.5-325 MG TABS 1 four times a day as needed for pain HYDROCODONE-ACETAMINOPHEN 33188110901 No Longer Activ e Good Julian MD Active KEFLEX 500 MG CAP 1 tab po tid CEPHALEXIN 069603 08824 No Longer Active Hira Moser APRN Active IBUPROFEN 800 MG TAB 1 pill three times daily as needed for pain IBUPROFEN 28803292341 No Longer Active Kalpesh Dong MD Active PROMETHAZINE-CODEINE 6.25-10 MG/5ML SYRP 1 tsp every 6 hrs prn c ou PROMETHAZINE-CODEINE 20184153520 No Longer Active Kalpesh Carr Active ALPRAZOLAM 0.5 MG TABS 1 PO bid PRN ALPRAZOLAM 715459 35478 Active Edilberto Marino DO Active HYDROCODONE-ACETAMINOPHEN 5-325 MG TABS 1 tab by mouth every 6 hours as needed HYDROCODONE-ACETAMINOPHEN 62776570885 No Longer Activ e Shola MCGILL Active CEPHALEXIN 500 MG CAPS 1 PO bid x 7 days CEPHAL EXIN 90901365463 No Longer Active Shola MCGILL Active BACTRIM DS 800-160 MG TAB 1 tab by mouth twice daily 2 TRIMETHOPRIM-SULFAMETHOXAZOLE 19543380749 No Longer Active Kalpesh Dong MD Active HYDROCODONE-ACETAMINOPHEN 5-325 MG TABS 1 PO tid PRN pain 5 HYDROCODONE-ACETAMINOPHEN 69713797287 No Longer Active Abhinav Galvan MD Active IMPLANON 68 MG IMPL IMPLANTED IN LEFT ARM ETONO GESTREL 91856692923 No Longer Active Jillsiri Frazell FUND ACCOUNTING MANAGER Active AMOXICILLIN 500 MG TABS 2 tabs PO bid x 10 d AM OXICILLIN 02936473772 No Longer Active Kalpesh Dong MD Active LEVAQUIN 500 MG TABS 1 PO q day x 7 days LEVOFL OXACIN 41549992354 No Longer Active Shola MCGILL Active PROAIR HFA 108 (90 BASE) MCG/ACT AERS 2 puff q 4-6 hrs PRN ALBUTEROL SULFATE 33843577324 Active Edilberto Mairno DO Active FIORICET 50-325-40 MG TABS 2 PO q 8 hrs PRN FOSTER [id number] Active Shola MCGILL Active AMITRIPTYLINE HCL 25 MG TAB 1 tab by mouth daily 60 minutes before bedtime AMITRIPTYLINE HCL 90508271981 No Longer Active Shola MCGILL Active LORTAB 5 5-500 MG TABS 1/2 to 1 tablet by mouth go ry 6 hours as needed for pain HYDROCODONE-ACETAMINOPHEN 01146890345 No Longer Active Shola MCGILL Active CEPHALEXIN 500 MG TABS Take one by mouth four times daily, morning, noon, early evening and bedtime. CEPHALEXIN 89966738457 No Long er Active Hira Joyjanee ANDRADEN Active TYLENOL/CODEINE #3 300-30 MG TAB 1-2 po q6hr PRN Pain ACETAMINOPHEN-CODEINE 80721581923 No Longer Active Edilberto Marino DO Active PRISTIQ 50 MG [id number] 1 po qd DESVENLAFAXI NE SUCCINATE 28844342086 No Longer Active Edilberto Marino DO Active PENICILLIN V POTASSIUM 500 MG TAB 1 four times a day 2 PENICILLIN V POTASSIUM 45648618884 No Longer Active Edilberto Marino DO Active DOXYCYCLINE HYCLATE 100 MG CAPS Take one (1) tablet by mouth twice a day DOXYCYCLINE HYCLATE 20857617974 No Longer Active Ronnie Galvan MD Active HYDROCODONE-ACETAMINOPHEN 5-325 MG TABS 1 po q 6hr PRN Pain 2011 HYDROCODONE-ACETAMINOPHEN 46058258449 No Longer Active Patri joan Perez RN Active BACTRIM DS 800-160 MG TAB 1 tab by mouth twice daily 2 TRIMETHOPRIM-SULFAMETHOXAZOLE 28957169346 No Longer Active Kalpesh Dong MD Active LORTAB 5 5-500 MG TABS 1/2 to 1 tablet by mouth go ry 4 hours as needed for pain HYDROCODONE-ACETAMINOPHEN 56781009763 No Longer Active Kalpesh Dong MD Active GENERESS FE 0.8-25 MG-MCG CHEW Take one by mouth daily NORETHIN-ETH ESTRADIOL-FE 18509149688 No Longer Active Kalpesh Dong MD Active HYDROCODONE-ACETAMINOPHEN 7.5-500 MG TABS 1-2 every 4 hours as needed HYDROCODONE-ACETAMINOPHEN 96736139551 No Longer Activ e Kalpesh Dong MD Active FERROUS SULFATE 325 (65 FE) MG TABS 1 tablet by mouth twice yung y FERROUS SULFATE 42038655561 No Longer Active Kalpesh Dong MD Active IBUPROFEN 600 MG TAB 1 po q6-8hr PRN IBUPROFEN 06985491886 No Longer Active Kalpesh Dong MD Active SPIRONOLACTONE 25 MG TAB 1 tablet by mouth daily 01/22 SPIRONOLACTONE 78100903197 No Longer Active Kalpesh Dong MD Acti ve HYDROCODONE-ACETAMINOPHEN 7.5-325 MG TABS 1 po QID PRN Pain 2011 HYDROCODONE-ACETAMINOPHEN 94206698680 No Longer Active Kalpesh Dong MD Active CLINDAMYCIN HCL 300 MG CAPS 1 po q6hr x 7 days CLINDAMYCIN HCL 47779719798 No Longer Active Edilberto Marino DO Active PREDNISONE 20 MG TAB 2 tabs daily for 4 days, 1 t ab daily for 4 days, 1/2 tab daily for 4 days PREDNISONE 45113560156 No Longer Active Edilberto Marino DO Active PERCOCET 5-325 MG TABS 1 tablet by mouth every 6 hours as ne eded for pain OXYCODONE-ACETAMINOPHEN 19697952617 No Longer Active Abdirahman Rios MD Active VITAMINS TABS Take one by mouth daily MV & MIN W/FE-FA TABS 02032377267 No Longer Active Abdirahman Rios MD Active LUIS 3-0.02 MG TABS 1 tablet by mouth daily as directed DROSPIRENONE-ETHINYL ESTRADIOL 51971700048 No Longer Active Abdirahman Rios MD Active LORATADINE 10 MG TABS 1 tablet by mouth daily L ORATADINE 28485742539 No Longer Active Kalpesh Dong MD Active HYDROCODONE-ACETAMINOPHEN 5-325 MG TABS 1 po q 6hr PRN Pain 2010 HYDROCODONE-ACETAMINOPHEN 77126899814 No Longer Active Edilberto Marino DO Active BACTRIM DS 800-160 MG TAB 1 tab by mouth twice daily 2 TRIMETHOPRIM-SULFAMETHOXAZOLE 82633073389 No Longer Active Abdirahman Rios MD Active 28-0.8 MG TABS Take one by mouth daily 09/20 VIT-FE FUMARATE-FA 24744708054 No Longer Active Abdirahman Rios MD Active CIPRO 500 MG TAB 1 tablet by mouth twice daily CIPROFLOXACIN HCL 62435738522 No Longer Active Abdirahman Rios MD Active BENADRYL 25 MG CAP 1 po q8hr PRN Congestion DIPHENHYDRAMINE HCL 75244675346 No Longer Active Abdirahman Rios MD Active ZOLOFT 50 MG TAB 1 po qd SERTRALINE HCL 893159 55022 No Longer Active Abdirahman Rios MD Active AMOXICILLIN 875 MG TABS 1 tab by mouth twice daily 201 08/09/13 AMOXICILLIN 33816724838 No Longer Active Abdirahman Rios MD Activ e AMOXICILLIN 875 MG TABS 1 tab by mouth twice daily 201 07/19/27 AMOXICILLIN 12620633422 No Longer Active Abdirahman Rios MD Activ e BACTRIM DS 800-160 MG TAB 2 tab by mouth twice daily 2 TRIMETHOPRIM-SULFAMETHOXAZOLE 44644067824 No Longer Active Abdirahman Rios MD Active KEFLEX 500 MG CAP 1 po tid x 10 days CEPHALEXIN 19743740203 No Longer Active Abdirahman Rios MD Active AMOXICILLIN 875 MG TABS 1 tab by mouth twice daily 201 07/18/07 AMOXICILLIN 42858000110 No Longer Active Abdirahman Rios MD Activ e BACTRIM DS 800-160 MG TAB 2 tab by mouth twice daily 2 BACTRIM DS 800-160 MG TAB TRIMETHOPRIM-SULFAMETHOXAZOLE Inactive ZOLOFT 50 MG TAB 1 po qd ZOLOFT 50 MG TAB 3129 41 SERTRALINE HCL Inactive BENADRYL 25 MG CAP 1 po q8hr PRN Congestion BENADRYL 25 MG CAP 8283736 DIPHENHYDRAMINE HCL Inactive 28-0.8 MG TABS Take one by mouth daily 09/20 28-0.8 MG TABS VIT-FE FUMARATE-FA Inactive HYDROCODONE-ACETAMINOPHEN 5-325 MG TABS 1 po q 6hr PRN Pain 2010 HYDROCODONE-ACETAMINOPHEN 5-325 MG TABS 229156 HYDROCODONE-ACETAMINOPHEN Inactive LORATADINE 10 MG TABS 1 tablet by mouth daily LORATADINE 10 MG TABS 121654 LORATADINE Inactive LUIS 3-0.02 MG TABS 1 tablet by mouth daily as directed LUIS 3-0.02 MG TABS DROSPIRENONE-ETHINYL ESTRADIOL Inactive VITAMINS TABS Take one by mouth daily VITAMINS TABS MV & MIN W/FE-FA TABS Inactive PERCOCET 5-325 MG TABS 1 tablet by mouth every 6 hours as ne eded for pain PERCOCET 5-325 MG TABS 7399940 OXYCODONE-ACETAMIN OPHEN Inactive PREDNISONE 20 MG TAB 2 tabs daily for 4 days, 1 t ab daily for 4 days, 1/2 tab daily for 4 days PREDNISONE 20 MG TAB 657832 PREDNISON E Inactive CLINDAMYCIN HCL 300 MG CAPS 1 po q6hr x 7 days CLINDAMYCIN HCL 300 MG CAPS 326268 CLINDAMYCIN HCL Inactive HYDROCODONE-ACETAMINOPHEN 7.5-325 MG TABS 1 po QID PRN Pain 2011 HYDROCODONE-ACETAMINOPHEN 7.5-325 MG TABS 066106 HYDROCODONE-ACETAMINOPHEN Inactive SPIRONOLACTONE 25 MG TAB 1 tablet by mouth daily 01/22 SPIRONOLACTONE 25 MG TAB 818257 SPIRONOLACTONE Inactive IBUPROFEN 600 MG TAB 1 po q6-8hr PRN IBUPROFEN 600 MG TAB 243439 IBUPROFEN Inactive FERROUS SULFATE 325 (65 FE) MG TABS 1 tablet by mouth twice yung y FERROUS SULFATE 325 (65 FE) MG TABS 175523 FERROUS SULF ATE Inactive HYDROCODONE-ACETAMINOPHEN 7.5-500 MG [...] PRN Pain 2011 HYDROCODONE-ACETAMINOPHEN 5-325 MG TABS 869973 HYDROCODONE-ACETAMINOPHEN Inactive DOXYCYCLINE HYCLATE 100 MG CAPS Take one (1) tablet by mouth twice a day DOXYCYCLINE HYCLATE 100 MG CAPS 624557 DOXYCYCLINE HYCLATE Inactive PENICILLIN V POTASSIUM 500 MG TAB 1 four times a day 2 PENICILLIN V POTASSIUM 500 MG TAB 926126 PENICILLIN V POTASSIUM Siri ctive PRISTIQ 50 MG [id number] 1 po qd PRISTIQ 50 MG [id number] DESVENLAFAXINE SUCCINATE Inactive TYLENOL/CODEINE #3 300-30 MG TAB 1-2 po q6hr PRN Pain TYLENOL/CODEINE #3 300-30 MG TAB 953480 ACETAMINOPHEN-CODEINE Inact krishna CEPHALEXIN 500 MG TABS Take one by mouth four times daily, morning, noon, early evening and bedtime. CEPHALEXIN 500 MG TABS 836718 CEPHALEXIN Inactive LORTAB 5 5-500 MG TABS 1/2 to 1 tablet by mouth go ry 6 hours as needed for pain LORTAB 5 5-500 MG TABS HYDROCODONE-A CETAMINOPHEN Inactive AMITRIPTYLINE HCL 25 MG TAB 1 tab by mouth daily 60 minutes before bedtime AMITRIPTYLINE HCL 25 MG TAB 818259 AMITRIPTYLINE HCL Inactive AMOXICILLIN 500 MG TABS 2 tabs PO bid x 10 d 7 AMOXICILLIN 500 MG TABS 260614 AMOXICILLIN Inactive IMPLANON 68 MG IMPL IMPLANTED IN LEFT ARM IMPLANON 68 MG IMPL ETONOGESTREL Inactive HYDROCODONE-ACETAMINOPHEN 5-325 MG TABS 1 PO tid PRN pain 5 HYDROCODONE-ACETAMINOPHEN 5-325 MG TABS 719538 HYDROCODONE-ACETAMIN OPHEN Inactive BACTRIM DS 800-160 MG TAB 1 tab by mouth twice daily 2 BACTRIM DS 800-160 MG TAB TRIMETHOPRIM-SULFAMETHOXAZOLE Inac tive CEPHALEXIN 500 MG CAPS 1 PO bid x 7 days CEPHALEXIN 500 MG CAPS 415596 CEPHALEXIN Inactive HYDROCODONE-ACETAMINOPHEN 5-325 MG TABS 1 tab by mouth every 6 hours as needed HYDROCODONE-ACETAMINOPHEN 5-325 MG TABS 587035 HYDROCODONE-ACETAMINOPHEN Inactive PROMETHAZINE-CODEINE 6.25-10 MG/5ML SYRP 1 tsp every 6 hrs prn c ough PROMETHAZINE-CODEINE 6.25-10 MG/5ML SYRP 808330 PROMETH AZINE-CODEINE Inactive IBUPROFEN 800 MG TAB 1 pill three times daily as needed for pain IBUPROFEN 800 MG TAB 912013 IBUPROFEN Inactive KEFLEX 500 MG CAP 1 tab po tid KEFLEX 500 MG CAP 757674 CEPHALEXIN Inactive HYDROCODONE-ACETAMINOPHEN 7.5-325 MG TABS 1 four times a day as needed for pain HYDROCODONE-ACETAMINOPHEN 7.5-325 MG TABS 304834 HYDROCODONE-ACETAMINOPHEN Inactive BACTRIM DS 800-160 MG TABS by mouth twice a day 11/05 BACTRIM DS 800-160 MG TABS SULFAMETHOXAZOLE-TRIMETHOPRIM Inactive IBUPROFEN 800 MG TABS 1 tid prn IBUPROFEN 800 MG TABS 483070 IBUPROFEN Inactive ENDOCET 10-325 MG TABS 1 q 6 hr prn ENDOC ET 10-325 MG TABS 0382369 OXYCODONE-ACETAMINOPHEN Inactive HYDROCODONE-ACETAMINOPHEN 7.5-325 MG TABS 1 by mouth e very 6 hours as needed for pain HYDROCODONE-ACETAMINOPHEN 7.5-325 MG TABS 976530 HYDROCODONE-ACETAMINOPHEN Inactive PERCOCET 7.5-325 MG TABS 1 PO q 8 hrs PRN pain PERCOCET 7.5-325 MG TABS 5770743 OXYCODONE-ACETAMINOPHEN Inactive LIDODERM 5 % PTCH One patch to painful area MI N. On for 12 hrs, off for 12 hrs. LIDODERM 5 % PTCH 9593435 LIDOCAINE Inactiv e PERCOCET 7.5-325 MG TABS 1 PO tid PRN pain PERCOCET 7.5- 325 MG TABS 8100183 OXYCODONE-ACETAMINOPHEN Inactive MOBIC 15 MG TABS 1 tab daily MOBIC 15 MG TABS 15 2695 MELOXICAM Inactive CYCLOBENZAPRINE HCL 10 MG TABS 1/2 - 1 tab PO tid PRN back p ain, muscle spasm CYCLOBENZAPRINE HCL 10 MG TABS 006729 CYCLOBENZA JOSEPH HCL Inactive LORATADINE 10 MG TABS 1 tablet by mouth daily LORATADINE 10 MG TABS 533477 LORATADINE Inactive HYDROCODONE-ACETAMINOPHEN 10-325 MG TABS 1 by mouth ev chaka 8 hours as needed for pain HYDROCODONE-ACETAMINOPHEN 10-325 MG TABS 573760 HYDROCODONE-ACETAMINOPHEN Inactive LC-5 LIDOCAINE 5 % CREA apply 1 time daily to affected area 2013 LC-5 LIDOCAINE 5 % CREA LIDOCAINE (ANORECTAL) In active PERCOCET 5-325 MG TAB 1 every 6 hours as needed PERCOCET 5-325 MG TAB 2403772 OXYCODONE-ACETAMINOPHEN Inactive AMOXICILLIN 875 MG TABS 1 tab by mouth twice daily 201 07/18/07 AMOXICILLIN 875 MG TABS 778278 AMOXICILLIN Inactive KEFLEX 500 MG CAP 1 po tid x 10 days KEFLEX 500 MG CAP 765009 CEPHALEXIN Inactive AMOXICILLIN 875 MG TABS 1 tab by mouth twice daily 201 07/19/27 AMOXICILLIN 875 MG TABS 281177 AMOXICILLIN Inactive AMOXICILLIN 875 MG TABS 1 tab by mouth twice daily 201 08/09/13 AMOXICILLIN 875 MG TABS 592273 AMOXICILLIN Inactive CIPRO 500 MG TAB 1 tablet by mouth twice daily CIPRO 500 MG TAB 908366 CIPROFLOXACIN HCL Inactive BACTRIM DS 800-160 MG TAB 1 tab by mouth twice daily 2 BACTRIM DS 800-160 MG TAB TRIMETHOPRIM-SULFAMETHOXAZOLE Inac tive LEVAQUIN 500 MG TABS 1 PO q day x 7 days LEVAQUIN 500 MG TABS 101723 LEVOFLOXACIN Inactive CLINDAMYCIN HCL 300 MG CAPS 1 po QID x 7 days CLINDAMYCIN HCL 300 MG CAPS 609409 CLINDAMYCIN HCL Inactive AUGMENTIN 875-125 MG TAB 1 tab by mouth twice daily with food 20 22/05/07 AUGMENTIN 875-125 MG TAB 187691 AMOXICILLIN-POT CLAVULA [place] Inactive DIFLUCAN 150 MG TAB 1 qODay x 2 doses DIFLUCAN 150 MG TAB 783494 FLUCONAZOLE Inactive Advance Directives Directive Description Start Date PERMISSION TO SHARE Immunizations Vaccine Administration Date Value Standard Alf cription Seasonal influenza vaccine, injectable, containing preservative, for > 3 years old (Afluria, FluLaval, Fluzone, Fluvirin, Fluarix, Agriflu(>= 18 yo)) Fluzone (>3 yrs.) [[id number]] Influenza, seasonal, inject able Seasonal influenza vaccine, injectable, preservative free, for > 3 years old (Afluria, FluLaval, Fluzone, Fluvirin, Fluarix, Agriflu(>= 18 yo)) Fluzone preservative free (>3 yrs.) [[id number]] Influenza, seasonal, injectable, preservative free Seasonal influenza vaccine, injectable, containing preservative, for > 3 years old (Afluria, FluLaval, Fluzone, Fluvirin, Fluarix, Agriflu(>= 18 yo)) Fluzone (>3 yrs.) [[id number]] Influenza, seasonal, inject able Seasonal influenza vaccine, injectable, containing preservative, for > 3 years old (Afluria, FluLaval, Fluzone, Fluvirin, Fluarix, Agriflu(>= 18 yo)) Fluzone (>3 yrs.) [[id number]] Influenza, seasonal, inject able dT (Diphtheria and [...] pressure, diastolic - 8462-4 70 mm[Hg] BP irbeiro blood pressure, systolic - 8480-6 115 mm[Hg] [...] ... 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 Patient 16:57:09 SENIOR HEALTH CONSULTANT Kalpesh goins MD [facility] CPT-18337 Level 3 Est. Patient 14:03:08 SENIOR HEALTH CONSULTANT Abdirahman Rios MD [facility] CPT-48893 Level 3 Est. Patient 18:12:34 CDT Shola Wright [facility] CPT-98039 Level 3 Est. Patient 19:34:46 CDT Shola Wright [facility] CPT-01170 Level 3 Est. Patient 14:19:37 CDT Abdirahman Rios MD [facility] CPT-46995 Level 3 Est. Patient 14:11:58 CDT Kalpesh goins MD [facility] CPT-41782 Level 3 Est. Patient 16:50:00 CDT Michelle MERCADO [facility] CPT-97504 Level 3 Est. Patient 17:11:32 SENIOR HEALTH CONSULTANT Brandie bates MD PhD [facility] CPT-58414 Level 3 Est. Patient 16:31:47 SENIOR HEALTH CONSULTANT Shola Wright [facility] CPT-52486 Level 3 Est. Patient 17:51:10 SENIOR HEALTH CONSULTANT Abhinav Galvan MD [facility] CPT-44701 Level 4 Est. Patient 12:54:56 SENIOR HEALTH CONSULTANT Kalpesh goins MD [facility] CPT-54305 Level 4 Est. Patient 12:53:56 SENIOR HEALTH CONSULTANT Kalpesh goins MD [facility] CPT-50352 Level 3 Est. Patient 17:56:58 CDT Shola Houghsabi [facility] CPT-34679 Level 3 Est. Patient 14:26:20 CDT Janak Dominguez [facility] CPT-85623 Level 3 Est. Patient 09:38:41 CDT Shola Wright [facility] CPT-73680 Level 3 Est. Patient 14:45:26 CDT Edilberto tiwari [facility] CPT-01283 Level 3 Est. Patient 10:51:33 CDT Hira muniz [facility][note 3] CPT-41915 Level 3 Est. Patient 11:57:55 SENIOR HEALTH CONSULTANT Shola Wright [facility] CPT-60755 Level 3 Est. Patient 09:53:33 SENIOR HEALTH CONSULTANT Edilberto tiwari [facility] CPT-47434 Level 3 Est. Patient 14:42:54 SENIOR HEALTH CONSULTANT Abhinav Galvan MD [facility]-16123 Level 3 Est. Patient 15:10:02 CDT Janak butcher [facility] CPT-04650 Level 3 Est. Patient 15:20:20 CDT Theo dennis MD [facility] CPT-80078 Level 2 Est. Patient 14:08:57 CDT Kalpesh goins MD [facility] CPT-04690 Level 3 Est. Patient 13:56:19 CDT Abdirahman Rios MD [facility] CPT-51341 Level 3 Est. Patient 13:59:37 CDT Abdirahman Rios MD [facility] CPT-99763 Level 2 Est. Patient 14:44:59 CDT Kalpesh goins MD [facility] CPT-81921 Level 3 Est. Patient 06:06:23 CDT Edilberto tiwari DO [facility] CPT-22594 Level 3 Est. Patient 15:23:54 CDT Abdirahman Rios MD [facility] CPT-13436 Level 3 Est. Patient 15:43:49 CDT Abdirahman Rios MD [facility] CPT-26454 Level 3 Est. Patient 12:46:47 SENIOR HEALTH CONSULTANT Abdirahman Rios MD [facility] CPT-58306 Level 3 Est. Patient 08:13:35 SENIOR HEALTH CONSULTANT Abdirahman Rios MD [facility] CPT-14900 Level 2 Est. Patient 09:36:42 SENIOR HEALTH CONSULTANT Abdirahman Rios MD [facility] CPT-07049 Level 3 Est. Patient 10:56:43 CDT Abdirahman Rios MD [facility] CPT-34131 Level 3 Est. Patient 18:24:52 CDT Abdirahman Rios MD [facility] CPT-09681 Level 3 Est. Patient 13:27:22 CDT Abdirahman Rios MD [facility] Procedures Code Procedure Name Date Entry Date Standard Desc ription CPT-72558 Postop F/U Visit 08:19:08 SENIOR HEALTH CONSULTANT CPT-97890 Immunization Single Admin 16:41:53 CDT 2013 CPT-47751 Fluzone Quadrivalent Intramuscular Suspe nsion 0.5 ML 16:41:53 CDT CPT-OV Office Visit 16:39:18 CDT CPT-OV Office Visit 16:16:36 CDT CPT-OV Office Visit 15:34:48 CDT CPT-45000 Postop F/U Visit 14:50:12 CDT CPT-55444 Postop F/U Visit 14:41:10 CDT CPT-63871 Venipuncture Draw Fee 11:38:04 SENIOR HEALTH CONSULTANT CPT-19532 Postop F/U Visit 19:02:59 SENIOR HEALTH CONSULTANT CPT-05275 Postop F/U Visit 12:04:54 SENIOR HEALTH CONSULTANT CPT-63935 Administration single or combination vac cine inc oral 15:56:43 CDT CPT-72182 Influenza split virus > age 3 15:56:43 CDT CPT-29408 Hand comp min 3V 14:25:19 CDT CPT-97484 Postop F/U Visit 21:40:51 CDT CPT-77076 Postop F/U Visit 10:58:43 CDT CPT-07781 Administration single or combination vac cine inc oral 12:33:54 SENIOR HEALTH CONSULTANT CPT-91149 Influenza Preservative Free split virus >age 3 12:33:54 SENIOR HEALTH CONSULTANT CPT-75227 Administration single or combination vac cine inc oral 09:30:51 CDT CPT-26737 Influenza split virus > age 3 09:30:51 CDT CPT-75020 Postop F/U Visit 15:14:53 CDT CPT-91816 Postop F/U Visit 13:50:14 CDT CPT-75535 Postop F/U Visit 13:34:52 CDT CPT-OV Office Visit 16:55:03 CDT CPT-40534 [place] of cervix w bx ECC 13:32:50 CDT 10/19 CPT-J1885 Toradol 60 mg (Ketorolac) 15:31:59 CDT 2011 CPT-J1885 Toradol 60 mg (Ketorolac) 15:23:54 CDT 2011 CPT-30249 Visit 11:34:37 SENIOR HEALTH CONSULTANT CPT-86475 Visit 10:52:39 SENIOR HEALTH CONSULTANT CPT-32979 Visit 10:12:02 SENIOR HEALTH CONSULTANT CPT-30627 Visit 11:22:43 SENIOR HEALTH CONSULTANT CPT-96552 Visit 11:24:12 SENIOR HEALTH CONSULTANT CPT-46324 Visit 10:47:05 SENIOR HEALTH CONSULTANT CPT-OV Office Visit 10:26:16 SENIOR HEALTH CONSULTANT CPT-OV Office Visit 15:34:31 SENIOR HEALTH CONSULTANT CPT-14877 Visit 10:42:08 SENIOR HEALTH CONSULTANT CPT-62848 Visit 10:52:45 SENIOR HEALTH CONSULTANT CPT-000 Give Appropriate Flu Vaccine 16:56:41 CDT 2 CPT-64062 Administration single or combination vac cine inc oral 10:33:21 CDT CPT-67540 Influenza split virus > age 3 10:33:21 CDT CPT-47707 Visit 13:23:09 CDT CPT-45794 Visit 18:24:52 CDT CPT-57660 Sono OB comp > 14 weeks 12:07:49 CDT 04/07
--- OUTSIDE RECORDS SUMMARY | 2020-01-18 17:22 | XMS REPORT | Clinical Summary ---
[...] 15 MG TABS 1 tab daily MELOXICAM [id number] Ac jason Julian MD Active PERCOCET 7.5-325 MG TABS 1 PO q 8 hrs PRN pain OXYCODONE-ACETAMINOPHEN 73244266085 No Longer Active Shola MCGILL Active HYDROCODONE-ACETAMINOPHEN 10-325 MG TABS 1 by mouth ev chaka 8 hours as needed for pain HYDROCODONE-ACETAMINOPHEN 64774745907 Active Shola MCGILL Active HYDROCODONE-ACETAMINOPHEN 7.5-325 MG TABS 1 by mouth e very 6 hours as needed for pain HYDROCODONE-ACETAMINOPHEN 33019350537 No Longer Active Good Julian MD Active LC-5 LIDOCAINE 5 % CREA apply 1 time daily to affected area LIDOCAINE (ANORECTAL) 70214579244 Active Shola MCGILL Active CLINDAMYCIN HCL 300 MG CAPS 1 po QID x 7 days CLINDAMYCIN HCL 84387856517 No Longer Active Abdirahman Rios MD Activ e BACTRIM DS 800-160 MG TABS 1 po BID x 7 days 5 SULFAMETHOXAZOLE-TRIMETHOPRIM 82241974867 No Longer Active Abdirahman Rios MD Active ENDOCET 10-325 MG TABS 1 q 6 hr prn OXYCODONE-ACETAMINOPHEN 51108983791 No Longer Active Abdirahman Rios MD Active IBUPROFEN 800 MG TABS 1 tid prn IBUPROFEN 125216 09158 No Longer Active Abdirahman Rios MD Active BACTRIM DS 800-160 MG TABS by mouth twice a day 11/05 SULFAMETHOXAZOLE-TRIMETHOPRIM 84688991775 No Longer Active Good Julian MD Active HYDROCODONE-ACETAMINOPHEN 7.5-325 MG TABS 1 four times a day as needed for pain HYDROCODONE-ACETAMINOPHEN 07118171663 No Longer Activ e Good Julian MD Active KEFLEX 500 MG CAP 1 tab po tid CEPHALEXIN 505228 66337 No Longer Active Hira Moser APRN Active IBUPROFEN 800 MG TAB 1 pill three times daily as needed for pain IBUPROFEN 97127469886 No Longer Active Kalpesh Dong MD Active PROMETHAZINE-CODEINE 6.25-10 MG/5ML SYRP 1 tsp every 6 hrs prn c ough PROMETHAZINE-CODEINE 45602300052 No Longer Active Kalpesh Carr Active ALPRAZOLAM 0.5 MG TABS 1 PO bid PRN ALPRAZOLAM 851827 85382 Active Shola MCGILL Active HYDROCODONE-ACETAMINOPHEN 5-325 MG TABS 1 tab by mouth every 6 hours as needed HYDROCODONE-ACETAMINOPHEN 91430084433 No Longer Activ e Shola MCGILL Active CEPHALEXIN 500 MG CAPS 1 PO bid x 7 days CEPHAL EXIN 92076080661 No Longer Active Shola MCGILL Active BACTRIM DS 800-160 MG TAB 1 tab by mouth twice daily 2 TRIMETHOPRIM-SULFAMETHOXAZOLE 89019660944 No Longer Active Kalpesh Dong MD Active HYDROCODONE-ACETAMINOPHEN 5-325 MG TABS 1 PO tid PRN pain 5 HYDROCODONE-ACETAMINOPHEN 03003856253 No Longer Active Abhinav Galvan MD Active IMPLANON 68 MG IMPL IMPLANTED IN LEFT ARM ETONO GESTREL 36765856755 No Longer Active Jielias Perazal [employer]ARM [employer]IVER Active AMOXICILLIN 500 MG TABS 2 tabs PO bid x 10 d AM OXICILLIN 49684298417 No Longer Active Kalpesh Dong MD Active LEVAQUIN 500 MG TABS 1 PO q day x 7 days LEVOFL OXACIN 24721433363 No Longer Active Shola MCGILL Active PROAIR HFA 108 (90 BASE) MCG/ACT AERS 2 puff q 4-6 hrs PRN ALBUTEROL SULFATE 55300495124 Active Shola MCGILL Acti ve FIORICET 50-325-40 MG TABS 2 PO q 8 hrs PRN FOSTER [id number] Active Shola MCGILL Active AMITRIPTYLINE HCL 25 MG TAB 1 tab by mouth daily 60 minutes before bedtime AMITRIPTYLINE HCL 90052801062 No Longer Active Shola MCGILL Active LORTAB 5 5-500 MG TABS 1/2 to 1 tablet by mouth go ry 6 hours as needed for pain HYDROCODONE-ACETAMINOPHEN 77826322744 No Longer Active Shola MCGILL Active CEPHALEXIN 500 MG TABS Take one by mouth four times daily, morning, noon, early evening and bedtime. CEPHALEXIN 59830554645 No Long er Active Hira Perazaabel [employer] Active TYLENOL/CODEINE #3 300-30 MG TAB 1-2 po q6hr PRN Pain ACETAMINOPHEN-CODEINE 17689286235 No Longer Active Edilberto Marino DO Active PRISTIQ 50 MG [id number] 1 po qd DESVENLAFAXI NE SUCCINATE 46374239040 No Longer Active Edilberto Marino DO Active PENICILLIN V POTASSIUM 500 MG TAB 1 four times a day 2 PENICILLIN V POTASSIUM 73343997926 No Longer Active Edilberto Marino DO Active DOXYCYCLINE HYCLATE 100 MG CAPS Take one (1) tablet by mouth twice a day DOXYCYCLINE HYCLATE 45817695087 No Longer Active Ronnie Galvan MD Active HYDROCODONE-ACETAMINOPHEN 5-325 MG TABS 1 po q 6hr PRN Pain 2011 HYDROCODONE-ACETAMINOPHEN 26007821837 No Longer Active Patri joan Perez RN Active BACTRIM DS 800-160 MG TAB 1 tab by mouth twice daily 2 TRIMETHOPRIM-SULFAMETHOXAZOLE 62545114805 No Longer Active Kalpesh Dong MD Active LORTAB 5 5-500 MG TABS 1/2 to 1 tablet by mouth go ry 4 hours as needed for pain HYDROCODONE-ACETAMINOPHEN 02017752314 No Longer Active Kalpesh Dong MD Active GENERESS FE 0.8-25 MG-MCG CHEW Take one by mouth daily NORETHIN-ETH ESTRADIOL-FE 83761160041 No Longer Active Kalpesh Dong MD Active HYDROCODONE-ACETAMINOPHEN 7.5-500 MG TABS 1-2 every 4 hours as needed HYDROCODONE-ACETAMINOPHEN 18011559266 No Longer Activ e Kalpesh Dong MD Active FERROUS SULFATE 325 (65 FE) MG TABS 1 tablet by mouth twice yung y FERROUS SULFATE 32398498454 No Longer Active Kalpesh Dong MD Active IBUPROFEN 600 MG TAB 1 po q6-8hr PRN IBUPROFEN 78234435314 No Longer Active Kalpesh Dong MD Active SPIRONOLACTONE 25 MG TAB 1 tablet by mouth daily 01/22 SPIRONOLACTONE 46639960230 No Longer Active Kalpesh Dong MD Acti ve HYDROCODONE-ACETAMINOPHEN 7.5-325 MG TABS 1 po QID PRN Pain 2011 HYDROCODONE-ACETAMINOPHEN 48054069976 No Longer Active Kalpesh Dong MD Active CLINDAMYCIN HCL 300 MG CAPS 1 po q6hr x 7 days CLINDAMYCIN HCL 03327454086 No Longer Active Edilberto Marino DO Active PREDNISONE 20 MG TAB 2 tabs daily for 4 days, 1 t ab daily for 4 days, 1/2 tab daily for 4 days PREDNISONE 34046468623 No Longer Active Edilberto Marino DO Active PERCOCET 5-325 MG TABS 1 tablet by mouth every 6 hours as ne eded for pain OXYCODONE-ACETAMINOPHEN 18587437818 No Longer Active Abdirahman Rios MD Active VITAMINS TABS Take one by mouth daily MV & MIN W/FE-FA TABS 22535165221 No Longer Active Abdirahman Rios MD Active LUIS 3-0.02 MG TABS 1 tablet by mouth daily as directed DROSPIRENONE-ETHINYL ESTRADIOL 79315472151 No Longer Active Abdirahman Rios MD Active LORATADINE 10 MG TABS 1 tablet by mouth daily L ORATADINE 15548952121 No Longer Active Kalpesh Dong MD Active HYDROCODONE-ACETAMINOPHEN 5-325 MG TABS 1 po q 6hr PRN Pain 2010 HYDROCODONE-ACETAMINOPHEN 65787619054 No Longer Active Edilberto Marino DO Active BACTRIM DS 800-160 MG TAB 1 tab by mouth twice daily 2 TRIMETHOPRIM-SULFAMETHOXAZOLE 59507262625 No Longer Active Abdirahman Rios MD Active 28-0.8 MG TABS Take one by mouth daily 09/20 VIT-FE FUMARATE-FA 43088217136 No Longer Active Abdirahman Rios MD Active CIPRO 500 MG TAB 1 tablet by mouth twice daily CIPROFLOXACIN HCL 26972426842 No Longer Active Abdirahman Rios MD Active BENADRYL 25 MG CAP 1 po q8hr PRN Congestion DIPHENHYDRAMINE HCL 65055932140 No Longer Active Abdirahman Rios MD Active ZOLOFT 50 MG TAB 1 po qd SERTRALINE HCL 009930 20788 No Longer Active Abdirahman Rios MD Active AMOXICILLIN 875 MG TABS 1 tab by mouth twice daily 201 08/09/13 AMOXICILLIN 63786887544 No Longer Active Abdirahman Rios MD Activ e AMOXICILLIN 875 MG TABS 1 tab by mouth twice daily 201 07/19/27 AMOXICILLIN 78307105861 No Longer Active Abdirahman Rios MD Activ e BACTRIM DS 800-160 MG TAB 2 tab by mouth twice daily 2 TRIMETHOPRIM-SULFAMETHOXAZOLE 22301932590 No Longer Active Abdirahman Rios MD Active KEFLEX 500 MG CAP 1 po tid x 10 days CEPHALEXIN 58388917873 No Longer Active Abdirahman Rios MD Active AMOXICILLIN 875 MG TABS 1 tab by mouth twice daily 201 07/18/07 AMOXICILLIN 33593802301 No Longer Active Abdirahman Rios MD Activ e BACTRIM DS 800-160 MG TAB 2 tab by mouth twice daily 2 BACTRIM DS 800-160 MG TAB TRIMETHOPRIM-SULFAMETHOXAZOLE Inactive ZOLOFT 50 MG TAB 1 po qd ZOLOFT 50 MG TAB 3129 41 SERTRALINE HCL Inactive BENADRYL 25 MG CAP 1 po q8hr PRN Congestion BENADRYL 25 MG CAP 1927852 DIPHENHYDRAMINE HCL Inactive 28-0.8 MG TABS Take one by mouth daily 09/20 28-0.8 MG TABS VIT-FE FUMARATE-FA Inactive HYDROCODONE-ACETAMINOPHEN 5-325 MG TABS 1 po q 6hr PRN Pain 2010 HYDROCODONE-ACETAMINOPHEN 5-325 MG TABS 722617 HYDROCODONE-ACETAMINOPHEN Inactive LORATADINE 10 MG TABS 1 tablet by mouth daily LORATADINE 10 MG TABS 548201 LORATADINE Inactive LUIS 3-0.02 MG TABS 1 tablet by mouth daily as directed LUIS 3-0.02 MG TABS DROSPIRENONE-ETHINYL ESTRADIOL Inactive VITAMINS TABS Take one by mouth daily VITAMINS TABS MV & MIN W/FE-FA TABS Inactive PERCOCET 5-325 MG TABS 1 tablet by mouth every 6 hours as ne eded for pain PERCOCET 5-325 MG TABS 4553893 OXYCODONE-ACETAMIN OPHEN Inactive PREDNISONE 20 MG TAB 2 tabs daily for 4 days, 1 t ab daily for 4 days, 1/2 tab daily for 4 days PREDNISONE 20 MG TAB 398290 PREDNISON E Inactive CLINDAMYCIN HCL 300 MG CAPS 1 po q6hr x 7 days CLINDAMYCIN HCL 300 MG CAPS 358106 CLINDAMYCIN HCL Inactive HYDROCODONE-ACETAMINOPHEN 7.5-325 MG TABS 1 po QID PRN Pain 2011 HYDROCODONE-ACETAMINOPHEN 7.5-325 MG TABS 406911 HYDROCODONE-ACETAMINOPHEN Inactive SPIRONOLACTONE 25 MG TAB 1 tablet by mouth daily 01/22 SPIRONOLACTONE 25 MG TAB 379444 SPIRONOLACTONE Inactive IBUPROFEN 600 MG TAB 1 po q6-8hr PRN IBUPROFEN 600 MG TAB 206680 IBUPROFEN Inactive FERROUS SULFATE 325 (65 FE) MG TABS 1 tablet by mouth twice yung y FERROUS SULFATE 325 (65 FE) MG TABS 504237 FERROUS SULF ATE Inactive HYDROCODONE-ACETAMINOPHEN 7.5-500 MG [...] PRN Pain 2011 HYDROCODONE-ACETAMINOPHEN 5-325 MG TABS 778431 HYDROCODONE-ACETAMINOPHEN Inactive DOXYCYCLINE HYCLATE 100 MG CAPS Take one (1) tablet by mouth twice a day DOXYCYCLINE HYCLATE 100 MG CAPS 933366 DOXYCYCLINE HYCLATE Inactive PENICILLIN V POTASSIUM 500 MG TAB 1 four times a day 2 PENICILLIN V POTASSIUM 500 MG TAB 619954 PENICILLIN V POTASSIUM Siri ctive PRISTIQ 50 MG [id number] 1 po qd PRISTIQ 50 MG [id number] DESVENLAFAXINE SUCCINATE Inactive TYLENOL/CODEINE #3 300-30 MG TAB 1-2 po q6hr PRN Pain TYLENOL/CODEINE #3 300-30 MG TAB 570933 ACETAMINOPHEN-CODEINE Inact krishna CEPHALEXIN 500 MG TABS Take one by mouth four times daily, morning, noon, early evening and bedtime. CEPHALEXIN 500 MG TABS 603877 CEPHALEXIN Inactive LORTAB 5 5-500 MG TABS 1/2 to 1 tablet by mouth go ry 6 hours as needed for pain LORTAB 5 5-500 MG TABS HYDROCODONE-A CETAMINOPHEN Inactive AMITRIPTYLINE HCL 25 MG TAB 1 tab by mouth daily 60 minutes before bedtime AMITRIPTYLINE HCL 25 MG TAB 376908 AMITRIPTYLINE HCL Inactive AMOXICILLIN 500 MG TABS 2 tabs PO bid x 10 d 7 AMOXICILLIN 500 MG TABS 525447 AMOXICILLIN Inactive IMPLANON 68 MG IMPL IMPLANTED IN LEFT ARM IMPLANON 68 MG IMPL ETONOGESTREL Inactive HYDROCODONE-ACETAMINOPHEN 5-325 MG TABS 1 PO tid PRN pain 5 HYDROCODONE-ACETAMINOPHEN 5-325 MG TABS 548432 HYDROCODONE-ACETAMIN OPHEN Inactive BACTRIM DS 800-160 MG TAB 1 tab by mouth twice daily 2 BACTRIM DS 800-160 MG TAB TRIMETHOPRIM-SULFAMETHOXAZOLE Inac tive CEPHALEXIN 500 MG CAPS 1 PO bid x 7 days CEPHALEXIN 500 MG CAPS 210356 CEPHALEXIN Inactive HYDROCODONE-ACETAMINOPHEN 5-325 MG TABS 1 tab by mouth every 6 hours as needed HYDROCODONE-ACETAMINOPHEN 5-325 MG TABS 919370 HYDROCODONE-ACETAMINOPHEN Inactive PROMETHAZINE-CODEINE 6.25-10 MG/5ML SYRP 1 tsp every 6 hrs prn c ough PROMETHAZINE-CODEINE 6.25-10 MG/5ML SYRP 984938 PROMETH AZINE-CODEINE Inactive IBUPROFEN 800 MG TAB 1 pill three times daily as needed for pain IBUPROFEN 800 MG TAB 169296 IBUPROFEN Inactive KEFLEX 500 MG CAP 1 tab po tid KEFLEX 500 MG CAP 617574 CEPHALEXIN Inactive HYDROCODONE-ACETAMINOPHEN 7.5-325 MG TABS 1 four times a day as needed for pain HYDROCODONE-ACETAMINOPHEN 7.5-325 MG TABS 689127 HYDROCODONE-ACETAMINOPHEN Inactive BACTRIM DS 800-160 MG TABS by mouth twice a day 11/05 BACTRIM DS 800-160 MG TABS SULFAMETHOXAZOLE-TRIMETHOPRIM Inactive IBUPROFEN 800 MG TABS 1 tid prn IBUPROFEN 800 MG TABS 065328 IBUPROFEN Inactive ENDOCET 10-325 MG TABS 1 q 6 hr prn ENDOC ET 10-325 MG TABS 4398363 OXYCODONE-ACETAMINOPHEN Inactive HYDROCODONE-ACETAMINOPHEN 7.5-325 MG TABS 1 by mouth e very 6 hours as needed for pain HYDROCODONE-ACETAMINOPHEN 7.5-325 MG TABS 390160 HYDROCODONE-ACETAMINOPHEN Inactive PERCOCET 7.5-325 MG TABS 1 PO q 8 hrs PRN pain PERCOCET 7.5-325 MG TABS 2546632 OXYCODONE-ACETAMINOPHEN Inactive AMOXICILLIN 875 MG TABS 1 tab by mouth twice daily 201 07/18/07 AMOXICILLIN 875 MG TABS 161640 AMOXICILLIN Inactive KEFLEX 500 MG CAP 1 po tid x 10 days KEFLEX 500 MG CAP 311523 CEPHALEXIN Inactive AMOXICILLIN 875 MG TABS 1 tab by mouth twice daily 201 07/19/27 AMOXICILLIN 875 MG TABS 586535 AMOXICILLIN Inactive AMOXICILLIN 875 MG TABS 1 tab by mouth twice daily 201 08/09/13 AMOXICILLIN 875 MG TABS 716556 AMOXICILLIN Inactive CIPRO 500 MG TAB 1 tablet by mouth twice daily CIPRO 500 MG TAB 710017 CIPROFLOXACIN HCL Inactive BACTRIM DS 800-160 MG TAB 1 tab by mouth twice daily 2 BACTRIM DS 800-160 MG TAB TRIMETHOPRIM-SULFAMETHOXAZOLE Inac tive LEVAQUIN 500 MG TABS 1 PO q day x 7 days LEVAQUIN 500 MG TABS 229173 LEVOFLOXACIN Inactive CLINDAMYCIN HCL 300 MG CAPS 1 po QID x 7 days CLINDAMYCIN HCL 300 MG CAPS 287316 CLINDAMYCIN HCL Inactive Advance Directives Directive Description Start Date PERMISSION TO SHARE Immunizations Vaccine Administration Date Value Standard Alf cription Seasonal influenza vaccine, injectable, containing preservative, for > 3 years old (Afluria, FluLaval, Fluzone, Fluvirin, Fluarix, Agriflu(>= 18 yo)) Fluzone (>3 yrs.) [[id number]] Influenza, seasonal, inject able Seasonal influenza vaccine, injectable, preservative free, for > 3 years old (Afluria, FluLaval, Fluzone, Fluvirin, Fluarix, Agriflu(>= 18 yo)) Fluzone preservative free (>3 yrs.) [[id number]] Influenza, seasonal, injectable, preservative free Seasonal influenza vaccine, injectable, containing preservative, for > 3 years old (Afluria, FluLaval, Fluzone, Fluvirin, Fluarix, Agriflu(>= 18 yo)) Fluzone (>3 yrs.) [[id number]] Influenza, seasonal, inject able Seasonal influenza vaccine, injectable, containing preservative, for > 3 years old (Afluria, FluLaval, Fluzone, Fluvirin, Fluarix, Agriflu(>= 18 yo)) Fluzone (>3 yrs.) [EHC530] Influenza, seasonal, inject able dT (Diphtheria and [...] ... - Chemistry sodium, serum 140 mmol/L 908-376 5519/02/24 potassium, serum 4.3 mmol/L 3.5-5.2 chloride, serum [...] 4.3-6.0 Lab Report: T3, TOTAL, INSULIN - Stockroom Clerk ry triiodothyronine, serum 78 ng/dL 76-181 Lab [...] mg/dL Encounters Code Encounter Date Provider Facility CPT-60655 Level 3 Est. Patient 19:34:46 CDT Shola MCGILL [facility] CPT-53048 Level 3 Est. Patient 14:19:37 CDT Abdirahman Rios MD [facility] CPT-14104 Level 3 Est. Patient 14:11:58 CDT Kalpesh goins MD [facility] CPT-01413 Level 3 Est. Patient 16:50:00 CDT Michelle MERCADO [facility] CPT-63373 Level 3 Est. Patient 17:11:32 ERCO MACHINE OPERATOR Brandie bates MD PhD [facility] CPT-38605 Level 3 Est. Patient 16:31:47 ERCO MACHINE OPERATOR Shola Wright [facility] CPT-67994 Level 3 Est. Patient 17:51:10 ERCO MACHINE OPERATOR Abhinav Galvan MD [facility] CPT-43604 Level 4 Est. Patient 12:54:56 ERCO MACHINE OPERATOR Kalpesh goins MD [facility]-18852 Level 4 Est. Patient 12:53:56 ERCO MACHINE OPERATOR Kalpesh goins MD [facility] CPT-35769 Level 3 Est. Patient 17:56:58 CDT Shola Houghsabi [facility] CPT-95615 Level 3 Est. Patient 14:26:20 CDT Janak Dominguez [facility] CPT-68649 Level 3 Est. Patient 09:38:41 CDT Shola Wright [facility] CPT-09582 Level 3 Est. Patient 14:45:26 CDT Edilberto tiwari [facility] CPT-32921 Level 3 Est. Patient 10:51:33 CDT Hira muniz [facility] CPT-37954 Level 3 Est. Patient 11:57:55 ERCO MACHINE OPERATOR Shola Wright [facility] CPT-96690 Level 3 Est. Patient 09:53:33 ERCO MACHINE OPERATOR Edilberto tiwari [facility] CPT-35328 Level 3 Est. Patient 14:42:54 ERCO MACHINE OPERATOR Abhinav Galvan MD [facility]-88641 Level 3 Est. Patient 15:10:02 CDT Jnaak butcher [facility] CPT-45037 Level 3 Est. Patient 15:20:20 CDT Theo dennis MD [facility] CPT-05162 Level 2 Est. Patient 14:08:57 CDT Kalpesh goins MD [facility] CPT-33251 Level 3 Est. Patient 13:56:19 CDT Abdirahman Rios MD [facility] CPT-38550 Level 3 Est. Patient 13:59:37 CDT Abdirahman Rios MD [facility] CPT-43512 Level 2 Est. Patient 14:44:59 CDT Kalpesh goins MD [facility] CPT-07051 Level 3 Est. Patient 06:06:23 CDT Edilberto tiwari DO [facility] CPT-89096 Level 3 Est. Patient 15:23:54 CDT Abdirahman Rios MD [facility] CPT-81139 Level 3 Est. Patient 15:43:49 CDT Abdirahman Rios MD [facility] CPT-77396 Level 3 Est. Patient 12:46:47 ERCO MACHINE OPERATOR Abdirahman Rios MD [facility] CPT-85045 Level 3 Est. Patient 08:13:35 ERCO MACHINE OPERATOR Abdirahman Rios MD [facility] CPT-17919 Level 2 Est. Patient 09:36:42 ERCO MACHINE OPERATOR Abdirahman Rios MD [facility] CPT-03492 Level 3 Est. Patient 10:56:43 CDT Abdirahman Rios MD [facility] CPT-50995 Level 3 Est. Patient 18:24:52 CDT Abdirahman Rios MD [facility] CPT-18418 Level 3 Est. Patient 13:27:22 CDT Abdirahman Rios MD [facility] Procedures Code Procedure Name Date Entry Date Standard Desc ription CPT-02885 Immunization Single Admin 16:41:53 CDT 2013 CPT-96317 Fluzone Quadrivalent Intramuscular Suspe nsion 0.5 ML 16:41:53 CDT CPT-OV Office Visit 16:39:18 CDT CPT-OV Office Visit 16:16:36 CDT CPT-OV Office Visit 15:34:48 CDT CPT-29665 Postop F/U Visit 14:50:12 CDT CPT-35378 Postop F/U Visit 14:41:10 CDT CPT-19125 Venipuncture Draw Fee 11:38:04 ERCO MACHINE OPERATOR CPT-88892 Postop F/U Visit 19:02:59 ERCO MACHINE OPERATOR CPT-63329 Postop F/U Visit 12:04:54 ERCO MACHINE OPERATOR CPT-81771 Administration single or combination vac cine inc oral 15:56:43 CDT CPT-36901 Influenza split virus > age 3 15:56:43 CDT CPT-20322 Hand comp min 3V 14:25:19 CDT CPT-30367 Postop F/U Visit 21:40:51 CDT CPT-88902 Postop F/U Visit 10:58:43 CDT CPT-15298 Administration single or combination vac cine inc oral 12:33:54 ERCO MACHINE OPERATOR CPT-03085 Influenza Preservative Free split virus >age 3 12:33:54 ERCO MACHINE OPERATOR CPT-04237 Administration single or combination vac cine inc oral 09:30:51 CDT CPT-62073 Influenza split virus > age 3 09:30:51 CDT CPT-60046 Postop F/U Visit 15:14:53 CDT CPT-06197 Postop F/U Visit 13:50:14 CDT CPT-94162 Postop F/U Visit 13:34:52 CDT CPT-OV Office Visit 16:55:03 CDT CPT-96574 Hi Hat of cervix w bx ECC 13:32:50 CDT 10/19 CPT-J1885 Toradol 60 mg (Ketorolac) 15:31:59 CDT 2011 CPT-J1885 Toradol 60 mg (Ketorolac) 15:23:54 CDT 2011 CPT-75307 Visit 11:34:37 ERCO MACHINE OPERATOR CPT-61297 Visit 10:52:39 ERCO MACHINE OPERATOR CPT-21544 Visit 10:12:02 ERCO MACHINE OPERATOR CPT-45952 Visit 11:22:43 ERCO MACHINE OPERATOR CPT-16793 Visit 11:24:12 ERCO MACHINE OPERATOR CPT-84146 Visit 10:47:05 ERCO MACHINE OPERATOR CPT-OV Office Visit 10:26:16 ERCO MACHINE OPERATOR CPT-OV Office Visit 15:34:31 ERCO MACHINE OPERATOR CPT-60486 Visit 10:42:08 ERCO MACHINE OPERATOR CPT-29712 Visit 10:52:45 ERCO MACHINE OPERATOR CPT-000 Give Appropriate Flu Vaccine 16:56:41 CDT 2 CPT-43362 Administration single or combination vac cine inc oral 10:33:21 CDT CPT-95545 Influenza split virus > age 3 10:33:21 CDT CPT-56841 Visit 13:23:09 CDT CPT-97489 Visit 18:24:52 CDT CPT-58862 Sono OB comp > 14 weeks 12:07:49 CDT 04/07
--- OUTSIDE RECORDS SUMMARY | 2020-01-18 17:23 | XMS REPORT | Clinical Summary ---
[...] of buttock, complicated 877.1 Active 2 Good Juilan MD Open wound of buttock, complicated Cellulitis [...] Good melchor MD ABSCESS ICD-682.9 Inactive Good ocllier MD PHARYNGITIS ICD-462 Inactive Good melchor MD [...] 15 MG TABS 1 tab daily MELOXICAM [id number] Ac jason Julian MD Active PERCOCET 7.5-325 MG TABS 1 PO q 8 hrs PRN pain OXYCODONE-ACETAMINOPHEN 68783766759 No Longer Active Shola MCGILL Active HYDROCODONE-ACETAMINOPHEN 10-325 MG TABS 1 by mouth ev chaka 8 hours as needed for pain HYDROCODONE-ACETAMINOPHEN 46309502444 Active Shola MCGILL Active HYDROCODONE-ACETAMINOPHEN 7.5-325 MG TABS 1 by mouth e very 6 hours as needed for pain HYDROCODONE-ACETAMINOPHEN 71084629218 No Longer Active Good Julian MD Active LC-5 LIDOCAINE 5 % CREA apply 1 time daily to affected area LIDOCAINE (ANORECTAL) 36071291030 Active Shola MCGILL Active CLINDAMYCIN HCL 300 MG CAPS 1 po QID x 7 days CLINDAMYCIN HCL 91548646432 No Longer Active Abdirahman Rios MD Activ e BACTRIM DS 800-160 MG TABS 1 po BID x 7 days 5 SULFAMETHOXAZOLE-TRIMETHOPRIM 67975364906 No Longer Active Abdirahman Rios MD Active ENDOCET 10-325 MG TABS 1 q 6 hr prn OXYCODONE-ACETAMINOPHEN 49989127290 No Longer Active Abdirahman Rios MD Active IBUPROFEN 800 MG TABS 1 tid prn IBUPROFEN 243982 38648 No Longer Active Abdirahman Rios MD Active BACTRIM DS 800-160 MG TABS by mouth twice a day 11/05 SULFAMETHOXAZOLE-TRIMETHOPRIM 72288430219 No Longer Active Good Julian MD Active HYDROCODONE-ACETAMINOPHEN 7.5-325 MG TABS 1 four times a day as needed for pain HYDROCODONE-ACETAMINOPHEN 75630419124 No Longer Activ e Good Julian MD Active KEFLEX 500 MG CAP 1 tab po tid CEPHALEXIN 319639 10722 No Longer Active Hira Moser APRN Active IBUPROFEN 800 MG TAB 1 pill three times daily as needed for pain IBUPROFEN 52964992553 No Longer Active Kalpesh Dong MD Active PROMETHAZINE-CODEINE 6.25-10 MG/5ML SYRP 1 tsp every 6 hrs prn c ough PROMETHAZINE-CODEINE 00205027830 No Longer Active Kalpesh Carr Active ALPRAZOLAM 0.5 MG TABS 1 PO bid PRN ALPRAZOLAM 872902 95233 Active Shola MCGILL Active HYDROCODONE-ACETAMINOPHEN 5-325 MG TABS 1 tab by mouth every 6 hours as needed HYDROCODONE-ACETAMINOPHEN 94296208332 No Longer Activ e Shola MCGILL Active CEPHALEXIN 500 MG CAPS 1 PO bid x 7 days CEPHAL EXIN 72468499135 No Longer Active Shola MCGILL Active BACTRIM DS 800-160 MG TAB 1 tab by mouth twice daily 2 TRIMETHOPRIM-SULFAMETHOXAZOLE 67261629170 No Longer Active Kalpesh Dong MD Active HYDROCODONE-ACETAMINOPHEN 5-325 MG TABS 1 PO tid PRN pain 5 HYDROCODONE-ACETAMINOPHEN 61390315346 No Longer Active Abhinav Galvan MD Active IMPLANON 68 MG IMPL IMPLANTED IN LEFT ARM ETONO GESTREL 67312285216 No Longer Active Jielias Perazal DOOR PULLER Active AMOXICILLIN 500 MG TABS 2 tabs PO bid x 10 d AM OXICILLIN 69705577727 No Longer Active Kalpesh Dong MD Active LEVAQUIN 500 MG TABS 1 PO q day x 7 days LEVOFL OXACIN 21817361017 No Longer Active Shola MCGILL Active PROAIR HFA 108 (90 BASE) MCG/ACT AERS 2 puff q 4-6 hrs PRN ALBUTEROL SULFATE 12619754474 Active Shola MCGILL Acti ve FIORICET 50-325-40 MG TABS 2 PO q 8 hrs PRN FOSTER [id number] Active Shola MCGILL Active AMITRIPTYLINE HCL 25 MG TAB 1 tab by mouth daily 60 minutes before bedtime AMITRIPTYLINE HCL 93494873022 No Longer Active Shola MCGILL Active LORTAB 5 5-500 MG TABS 1/2 to 1 tablet by mouth go ry 6 hours as needed for pain HYDROCODONE-ACETAMINOPHEN 43971607531 No Longer Active Shola MCGILL Active CEPHALEXIN 500 MG TABS Take one by mouth four times daily, morning, noon, early evening and bedtime. CEPHALEXIN 74435722245 No Long er Active Hira Perazaabel DOOR PULLER Active TYLENOL/CODEINE #3 300-30 MG TAB 1-2 po q6hr PRN Pain ACETAMINOPHEN-CODEINE 69428283997 No Longer Active Edilberto Marino DO Active PRISTIQ 50 MG [id number] 1 po qd DESVENLAFAXI NE SUCCINATE 85619895999 No Longer Active Edilberto Marino DO Active PENICILLIN V POTASSIUM 500 MG TAB 1 four times a day 2 PENICILLIN V POTASSIUM 62228797235 No Longer Active Edilberto Marino DO Active DOXYCYCLINE HYCLATE 100 MG CAPS Take one (1) tablet by mouth twice a day DOXYCYCLINE HYCLATE 37621321403 No Longer Active Ronnie Galvan MD Active HYDROCODONE-ACETAMINOPHEN 5-325 MG TABS 1 po q 6hr PRN Pain 2011 HYDROCODONE-ACETAMINOPHEN 54188538873 No Longer Active Patri joan Perez RN Active BACTRIM DS 800-160 MG TAB 1 tab by mouth twice daily 2 TRIMETHOPRIM-SULFAMETHOXAZOLE 47109114323 No Longer Active Kalpesh Dong MD Active LORTAB 5 5-500 MG TABS 1/2 to 1 tablet by mouth go ry 4 hours as needed for pain HYDROCODONE-ACETAMINOPHEN 19377104920 No Longer Active Kalpesh Dong MD Active GENERESS FE 0.8-25 MG-MCG CHEW Take one by mouth daily NORETHIN-ETH ESTRADIOL-FE 08964695840 No Longer Active Kalpesh Dong MD Active HYDROCODONE-ACETAMINOPHEN 7.5-500 MG TABS 1-2 every 4 hours as needed HYDROCODONE-ACETAMINOPHEN 25306404712 No Longer Activ e Kalpesh Dong MD Active FERROUS SULFATE 325 (65 FE) MG TABS 1 tablet by mouth twice yung y FERROUS SULFATE 97528334423 No Longer Active Kalpesh Dong MD Active IBUPROFEN 600 MG TAB 1 po q6-8hr PRN IBUPROFEN 80416561664 No Longer Active Kalpesh Dong MD Active SPIRONOLACTONE 25 MG TAB 1 tablet by mouth daily 01/22 SPIRONOLACTONE 13389187437 No Longer Active Kalpesh Dong MD Acti ve HYDROCODONE-ACETAMINOPHEN 7.5-325 MG TABS 1 po QID PRN Pain 2011 HYDROCODONE-ACETAMINOPHEN 08924789137 No Longer Active Kalpesh Dong MD Active CLINDAMYCIN HCL 300 MG CAPS 1 po q6hr x 7 days CLINDAMYCIN HCL 04833266625 No Longer Active Edilberto Marino DO Active PREDNISONE 20 MG TAB 2 tabs daily for 4 days, 1 t ab daily for 4 days, 1/2 tab daily for 4 days PREDNISONE 69825308761 No Longer Active Edilberto Marino DO Active PERCOCET 5-325 MG TABS 1 tablet by mouth every 6 hours as ne eded for pain OXYCODONE-ACETAMINOPHEN 39157122925 No Longer Active Abdirahman Rios MD Active VITAMINS TABS Take one by mouth daily MV & MIN W/FE-FA TABS 40414063974 No Longer Active Abdirahman Rios MD Active LUIS 3-0.02 MG TABS 1 tablet by mouth daily as directed DROSPIRENONE-ETHINYL ESTRADIOL 59283732655 No Longer Active Abdirahman Rios MD Active LORATADINE 10 MG TABS 1 tablet by mouth daily L ORATADINE 45312059747 No Longer Active Kalpesh Dong MD Active HYDROCODONE-ACETAMINOPHEN 5-325 MG TABS 1 po q 6hr PRN Pain 2010 HYDROCODONE-ACETAMINOPHEN 60945768325 No Longer Active Edilberto Marino DO Active BACTRIM DS 800-160 MG TAB 1 tab by mouth twice daily 2 TRIMETHOPRIM-SULFAMETHOXAZOLE 57558692448 No Longer Active Abdirahman Rios MD Active 28-0.8 MG TABS Take one by mouth daily 09/20 VIT-FE FUMARATE-FA 42873595152 No Longer Active Abdirahman Rios MD Active CIPRO 500 MG TAB 1 tablet by mouth twice daily CIPROFLOXACIN HCL 77891318257 No Longer Active Abdirahman Rios MD Active BENADRYL 25 MG CAP 1 po q8hr PRN Congestion DIPHENHYDRAMINE HCL 47896718815 No Longer Active Abdirahman Rios MD Active ZOLOFT 50 MG TAB 1 po qd SERTRALINE HCL 595453 48691 No Longer Active Abdirahman Rios MD Active AMOXICILLIN 875 MG TABS 1 tab by mouth twice daily 201 08/09/13 AMOXICILLIN 78581966839 No Longer Active Abdirahman Rios MD Activ e AMOXICILLIN 875 MG TABS 1 tab by mouth twice daily 201 07/19/27 AMOXICILLIN 26323577615 No Longer Active Abdirahman Rios MD Activ e BACTRIM DS 800-160 MG TAB 2 tab by mouth twice daily 2 TRIMETHOPRIM-SULFAMETHOXAZOLE 30767643734 No Longer Active Abdirahman Rios MD Active KEFLEX 500 MG CAP 1 po tid x 10 days CEPHALEXIN 40369729524 No Longer Active Abdirahman Rios MD Active AMOXICILLIN 875 MG TABS 1 tab by mouth twice daily 201 07/18/07 AMOXICILLIN 93711465296 No Longer Active Abdirahman Rios MD Activ e BACTRIM DS 800-160 MG TAB 2 tab by mouth twice daily 2 BACTRIM DS 800-160 MG TAB TRIMETHOPRIM-SULFAMETHOXAZOLE Inactive ZOLOFT 50 MG TAB 1 po qd ZOLOFT 50 MG TAB 3129 41 SERTRALINE HCL Inactive BENADRYL 25 MG CAP 1 po q8hr PRN Congestion BENADRYL 25 MG CAP 2551127 DIPHENHYDRAMINE HCL Inactive 28-0.8 MG TABS Take one by mouth daily 09/20 28-0.8 MG TABS VIT-FE FUMARATE-FA Inactive HYDROCODONE-ACETAMINOPHEN 5-325 MG TABS 1 po q 6hr PRN Pain 2010 HYDROCODONE-ACETAMINOPHEN 5-325 MG TABS 127362 HYDROCODONE-ACETAMINOPHEN Inactive LORATADINE 10 MG TABS 1 tablet by mouth daily LORATADINE 10 MG TABS 991589 LORATADINE Inactive LUIS 3-0.02 MG TABS 1 tablet by mouth daily as directed LUIS 3-0.02 MG TABS DROSPIRENONE-ETHINYL ESTRADIOL Inactive VITAMINS TABS Take one by mouth daily VITAMINS TABS MV & MIN W/FE-FA TABS Inactive PERCOCET 5-325 MG TABS 1 tablet by mouth every 6 hours as ne eded for pain PERCOCET 5-325 MG TABS 5469453 OXYCODONE-ACETAMIN OPHEN Inactive PREDNISONE 20 MG TAB 2 tabs daily for 4 days, 1 t ab daily for 4 days, 1/2 tab daily for 4 days PREDNISONE 20 MG TAB 697649 PREDNISON E Inactive CLINDAMYCIN HCL 300 MG CAPS 1 po q6hr x 7 days CLINDAMYCIN HCL 300 MG CAPS 756133 CLINDAMYCIN HCL Inactive HYDROCODONE-ACETAMINOPHEN 7.5-325 MG TABS 1 po QID PRN Pain 2011 HYDROCODONE-ACETAMINOPHEN 7.5-325 MG TABS 372944 HYDROCODONE-ACETAMINOPHEN Inactive SPIRONOLACTONE 25 MG TAB 1 tablet by mouth daily 01/22 SPIRONOLACTONE 25 MG TAB 729415 SPIRONOLACTONE Inactive IBUPROFEN 600 MG TAB 1 po q6-8hr PRN IBUPROFEN 600 MG TAB 478819 IBUPROFEN Inactive FERROUS SULFATE 325 (65 FE) MG TABS 1 tablet by mouth twice yung y FERROUS SULFATE 325 (65 FE) MG TABS 785658 FERROUS SULF ATE Inactive HYDROCODONE-ACETAMINOPHEN 7.5-500 MG [...] PRN Pain 2011 HYDROCODONE-ACETAMINOPHEN 5-325 MG TABS 228299 HYDROCODONE-ACETAMINOPHEN Inactive DOXYCYCLINE HYCLATE 100 MG CAPS Take one (1) tablet by mouth twice a day DOXYCYCLINE HYCLATE 100 MG CAPS 249400 DOXYCYCLINE HYCLATE Inactive PENICILLIN V POTASSIUM 500 MG TAB 1 four times a day 2 PENICILLIN V POTASSIUM 500 MG TAB 648929 PENICILLIN V POTASSIUM Siri ctive PRISTIQ 50 MG [id number] 1 po qd PRISTIQ 50 MG [id number] DESVENLAFAXINE SUCCINATE Inactive TYLENOL/CODEINE #3 300-30 MG TAB 1-2 po q6hr PRN Pain TYLENOL/CODEINE #3 300-30 MG TAB 634916 ACETAMINOPHEN-CODEINE Inact krishna CEPHALEXIN 500 MG TABS Take one by mouth four times daily, morning, noon, early evening and bedtime. CEPHALEXIN 500 MG TABS 614319 CEPHALEXIN Inactive LORTAB 5 5-500 MG TABS 1/2 to 1 tablet by mouth go ry 6 hours as needed for pain LORTAB 5 5-500 MG TABS HYDROCODONE-A CETAMINOPHEN Inactive AMITRIPTYLINE HCL 25 MG TAB 1 tab by mouth daily 60 minutes before bedtime AMITRIPTYLINE HCL 25 MG TAB 581316 AMITRIPTYLINE HCL Inactive AMOXICILLIN 500 MG TABS 2 tabs PO bid x 10 d 7 AMOXICILLIN 500 MG TABS 053856 AMOXICILLIN Inactive IMPLANON 68 MG IMPL IMPLANTED IN LEFT ARM IMPLANON 68 MG IMPL ETONOGESTREL Inactive HYDROCODONE-ACETAMINOPHEN 5-325 MG TABS 1 PO tid PRN pain 5 HYDROCODONE-ACETAMINOPHEN 5-325 MG TABS 770261 HYDROCODONE-ACETAMIN OPHEN Inactive BACTRIM DS 800-160 MG TAB 1 tab by mouth twice daily 2 BACTRIM DS 800-160 MG TAB TRIMETHOPRIM-SULFAMETHOXAZOLE Inac tive CEPHALEXIN 500 MG CAPS 1 PO bid x 7 days CEPHALEXIN 500 MG CAPS 341435 CEPHALEXIN Inactive HYDROCODONE-ACETAMINOPHEN 5-325 MG TABS 1 tab by mouth every 6 hours as needed HYDROCODONE-ACETAMINOPHEN 5-325 MG TABS 781425 HYDROCODONE-ACETAMINOPHEN Inactive PROMETHAZINE-CODEINE 6.25-10 MG/5ML SYRP 1 tsp every 6 hrs prn c ough PROMETHAZINE-CODEINE 6.25-10 MG/5ML SYRP 742895 PROMETH AZINE-CODEINE Inactive IBUPROFEN 800 MG TAB 1 pill three times daily as needed for pain IBUPROFEN 800 MG TAB 287719 IBUPROFEN Inactive KEFLEX 500 MG CAP 1 tab po tid KEFLEX 500 MG CAP 763826 CEPHALEXIN Inactive HYDROCODONE-ACETAMINOPHEN 7.5-325 MG TABS 1 four times a day as needed for pain HYDROCODONE-ACETAMINOPHEN 7.5-325 MG TABS 311525 HYDROCODONE-ACETAMINOPHEN Inactive BACTRIM DS 800-160 MG TABS by mouth twice a day 11/05 BACTRIM DS 800-160 MG TABS SULFAMETHOXAZOLE-TRIMETHOPRIM Inactive IBUPROFEN 800 MG TABS 1 tid prn IBUPROFEN 800 MG TABS 418034 IBUPROFEN Inactive ENDOCET 10-325 MG TABS 1 q 6 hr prn ENDOC ET 10-325 MG TABS 2591801 OXYCODONE-ACETAMINOPHEN Inactive HYDROCODONE-ACETAMINOPHEN 7.5-325 MG TABS 1 by mouth e very 6 hours as needed for pain HYDROCODONE-ACETAMINOPHEN 7.5-325 MG TABS 712516 HYDROCODONE-ACETAMINOPHEN Inactive PERCOCET 7.5-325 MG TABS 1 PO q 8 hrs PRN pain PERCOCET 7.5-325 MG TABS 4280629 OXYCODONE-ACETAMINOPHEN Inactive AMOXICILLIN 875 MG TABS 1 tab by mouth twice daily 201 07/18/07 AMOXICILLIN 875 MG TABS 182241 AMOXICILLIN Inactive KEFLEX 500 MG CAP 1 po tid x 10 days KEFLEX 500 MG CAP 397120 CEPHALEXIN Inactive AMOXICILLIN 875 MG TABS 1 tab by mouth twice daily 201 07/19/27 AMOXICILLIN 875 MG TABS 085825 AMOXICILLIN Inactive AMOXICILLIN 875 MG TABS 1 tab by mouth twice daily 201 08/09/13 AMOXICILLIN 875 MG TABS 211319 AMOXICILLIN Inactive CIPRO 500 MG TAB 1 tablet by mouth twice daily CIPRO 500 MG TAB 708790 CIPROFLOXACIN HCL Inactive BACTRIM DS 800-160 MG TAB 1 tab by mouth twice daily 2 BACTRIM DS 800-160 MG TAB TRIMETHOPRIM-SULFAMETHOXAZOLE Inac tive LEVAQUIN 500 MG TABS 1 PO q day x 7 days LEVAQUIN 500 MG TABS 195906 LEVOFLOXACIN Inactive CLINDAMYCIN HCL 300 MG CAPS 1 po QID x 7 days CLINDAMYCIN HCL 300 MG CAPS 822754 CLINDAMYCIN HCL Inactive Advance Directives Directive Description Start Date PERMISSION TO SHARE Immunizations Vaccine Administration Date Value Standard Alf cription Seasonal influenza vaccine, injectable, containing preservative, for > 3 years old (Afluria, FluLaval, Fluzone, Fluvirin, Fluarix, Agriflu(>= 18 yo)) Fluzone (>3 yrs.) [[id number]] Influenza, seasonal, inject able Seasonal influenza vaccine, injectable, preservative free, for > 3 years old (Afluria, FluLaval, Fluzone, Fluvirin, Fluarix, Agriflu(>= 18 yo)) Fluzone preservative free (>3 yrs.) [[id number]] Influenza, seasonal, injectable, preservative free Seasonal influenza vaccine, injectable, containing preservative, for > 3 years old (Afluria, FluLaval, Fluzone, Fluvirin, Fluarix, Agriflu(>= 18 yo)) Fluzone (>3 yrs.) [[id number]] Influenza, seasonal, inject able Seasonal influenza vaccine, injectable, containing preservative, for > 3 years old (Afluria, FluLaval, Fluzone, Fluvirin, Fluarix, Agriflu(>= 18 yo)) Fluzone (>3 yrs.) [[id number]] Influenza, seasonal, inject able dT (Diphtheria and [...] ... - Chemistry sodium, serum 140 mmol/L 164-050 3295/02/24 potassium, serum 4.3 mmol/L 3.5-5.2 chloride, serum [...] 4.3-6.0 Lab Report: T3, TOTAL, INSULIN - Counter Checker ry triiodothyronine, serum 78 ng/dL 76-181 Lab [...] mg/dL Encounters Code Encounter Date Provider Facility CPT-05775 Level 3 Est. Patient 19:34:46 CDT Shola MCGILL [facility] CPT-90767 Level 3 Est. Patient 14:19:37 CDT Abdirahman Rios MD [facility] CPT-33871 Level 3 Est. Patient 14:11:58 CDT Kalpesh goins MD [facility] CPT-96705 Level 3 Est. Patient 16:50:00 CDT Michelle MERCADO [facility] CPT-76890 Level 3 Est. Patient 17:11:32 AIRCRAFT ENGINEER Brandie bates MD PhD [facility] CPT-89803 Level 3 Est. Patient 16:31:47 AIRCRAFT ENGINEER Shola MCGILL [facility] CPT-48834 Level 3 Est. Patient 17:51:10 AIRCRAFT ENGINEER Abhinav Galvan MD [facility] CPT-22730 Level 4 Est. Patient 12:54:56 AIRCRAFT ENGINEER Kalpesh goins MD [facility]-42337 Level 4 Est. Patient 12:53:56 AIRCRAFT ENGINEER Kalpesh goins MD [facility]-58738 Level 3 Est. Patient 17:56:58 CDT Shola Wright [facility] CPT-71696 Level 3 Est. Patient 14:26:20 CDT Janak butcher [facility] CPT-89610 Level 3 Est. Patient 09:38:41 CDT [facility] CPT-66505 Level 3 Est. Patient 14:45:26 CDT Edilberto tiwari [facility] CPT-35133 Level 3 Est. Patient 10:51:33 [facility] Patient 11:57:55 AIRCRAFT ENGINEER Shola Houghsabi [facility] CPT-05663 Level 3 Est. Patient 09:53:33 AIRCRAFT ENGINEER Edilberto tiwari [facility] CPT-07514 Level 3 Est. Patient 14:42:54 AIRCRAFT ENGINEER Abhinav Galvan MD [facility]-27188 Level 3 Est. Patient 15:10:02 CDT Janak butcher [facility] CPT-56929 Level 3 Est. Patient 15:20:20 CDT Theo dennis MD [facility]-57051 Level 2 Est. Patient 14:08:57 CDT Kalpesh goins MD [facility]-91405 Level 3 Est. Patient 13:56:19 CDT Abdirahman Rios MD [facility] CPT-91390 Level 3 Est. Patient 13:59:37 CDT Abdirahman Rios MD [facility] CPT-76371 Level 2 Est. Patient 14:44:59 CDT Kalpesh goins MD [facility] CPT-79496 Level 3 Est. Patient 06:06:23 CDT Edilberto tiwari DO [facility] CPT-67078 Level 3 Est. Patient 15:23:54 CDT Abdirahman Rios MD [facility] CPT-38258 Level 3 Est. Patient 15:43:49 CDT Abdirahman Rios MD [facility] CPT-45907 Level 3 Est. Patient 12:46:47 AIRCRAFT ENGINEER Abdirahman Rios MD [facility] CPT-50384 Level 3 Est. Patient 08:13:35 AIRCRAFT ENGINEER Abdirahman Rios MD [facility] CPT-34528 Level 2 Est. Patient 09:36:42 AIRCRAFT ENGINEER Abdirahman Rios MD [facility] CPT-87855 Level 3 Est. Patient 10:56:43 CDT Abdirahman Rios MD [facility] CPT-07835 Level 3 Est. Patient 18:24:52 CDT Abdirahman Rios MD [facility] CPT-33146 Level 3 Est. Patient 13:27:22 CDT Abdirahman Rios MD [facility] Procedures Code Procedure Name Date Entry Date Standard Desc ription CPT-81427 Immunization Single Admin 16:41:53 CDT 2013 CPT-15405 Fluzone Quadrivalent Intramuscular Suspe nsion 0.5 ML 16:41:53 CDT CPT-OV Office Visit 16:39:18 CDT CPT-OV Office Visit 16:16:36 CDT CPT-OV Office Visit 15:34:48 CDT CPT-48524 Postop F/U Visit 14:50:12 CDT CPT-52468 Postop F/U Visit 14:41:10 CDT CPT-76750 Venipuncture Draw Fee 11:38:04 AIRCRAFT ENGINEER CPT-21931 Postop F/U Visit 19:02:59 AIRCRAFT ENGINEER CPT-76917 Postop F/U Visit 12:04:54 AIRCRAFT ENGINEER CPT-26227 Administration single or combination vac cine inc oral 15:56:43 CDT CPT-83743 Influenza split virus > age 3 15:56:43 CDT CPT-29847 Hand comp min 3V 14:25:19 CDT CPT-24478 Postop F/U Visit 21:40:51 CDT CPT-87690 Postop F/U Visit 10:58:43 CDT CPT-00968 Administration single or combination vac cine inc oral 12:33:54 AIRCRAFT ENGINEER CPT-72309 Influenza Preservative Free split virus >age 3 12:33:54 AIRCRAFT ENGINEER CPT-47087 Administration single or combination vac cine inc oral 09:30:51 CDT CPT-80985 Influenza split virus > age 3 09:30:51 CDT CPT-92129 Postop F/U Visit 15:14:53 CDT CPT-11385 Postop F/U Visit 13:50:14 CDT CPT-99352 Postop F/U Visit 13:34:52 CDT CPT-OV Office Visit 16:55:03 CDT CPT-73144 Bergoo of cervix w bx ECC 13:32:50 CDT 10/19 CPT-J1885 Toradol 60 mg (Ketorolac) 15:31:59 CDT 2011 CPT-J1885 Toradol 60 mg (Ketorolac) 15:23:54 CDT 2011 CPT-62617 Visit 11:34:37 AIRCRAFT ENGINEER CPT-95791 Visit 10:52:39 AIRCRAFT ENGINEER CPT-60001 Visit 10:12:02 AIRCRAFT ENGINEER CPT-72591 Visit 11:22:43 AIRCRAFT ENGINEER CPT-67609 Visit 11:24:12 AIRCRAFT ENGINEER CPT-56628 Visit 10:47:05 AIRCRAFT ENGINEER CPT-OV Office Visit 10:26:16 AIRCRAFT ENGINEER CPT-OV Office Visit 15:34:31 AIRCRAFT ENGINEER CPT-06333 Visit 10:42:08 AIRCRAFT ENGINEER CPT-88972 Visit 10:52:45 AIRCRAFT ENGINEER CPT-000 Give Appropriate Flu Vaccine 16:56:41 CDT 2 CPT-63393 Administration single or combination vac cine inc oral 10:33:21 CDT CPT-09815 Influenza split virus > age 3 10:33:21 CDT CPT-00405 Visit 13:23:09 CDT CPT-35050 Visit 18:24:52 CDT CPT-72867 Sono OB comp > 14 weeks 12:07:49 CDT 04/07
--- OUTSIDE RECORDS SUMMARY | 2020-01-18 17:23 | XMS REPORT ---
Author Author [facility] Medic al Staff, TOMY Rashid Organization [facility] Address [address], [place] [address] Phone [phone] Care Team Providers Care Commissary Agent Name Role Phone CHRISTOPHER YORK, CAROLEE PP [phone] Summary purpose TRANSITION OF CARE AUTO GENERATION Chief Complaint and Reason for Visit Admit Diagnosis 1 E/O RIGHT INGUINAL HYDRDANIT IS LESION Problem list No authorized problems tracked for [...] 10 mg-325 mg tablet 1 tablet oral OR N Every 12 Hours Current Patient recall [...] tests and/or laboratory data RESULTS Routine Cultures [id number]:10:00 Wound Culture Plate Date and Time 06/26/2014 12:08 SourceABDOMEN GRAM STAIN No cells seen on microscopic Examination No Organisms Seen. Release Date/Time: 08/27/2013 15:18 History of procedures No procedures recorded for this patient visit. Functional status Functional Status Finding Observation Time Hearing Prob Loc none 05-18-025880:55 Vision Problems yes 91-48-434871:55 Vision Correct Dev glasses 43-05-148611:55 Ambulation Asst Dev none 62-53-434481:55 Range of Motion full 97-87-987242:45 Muscle Strength RUE 5 ROM full resist 96-00-868410:45 Muscle Strength RLE 5 ROM full resist 62-80-361804:45 Muscle Strength LUE 5 ROM full resist 09-00-221156:45 Muscle Strength LLE 5 ROM full resist 66-75-119277:45 Transfers assist x 1 01-14-980869:45 Ambulation in room 81-22-556973:45 Balance steady 17-36-132305:09 Bathing Assistance none 77-92-794578:55 Eating Assistance none 61-88-707774:55 Dressing Assistance none 94-25-986229:55 Toileting Assistance none 01-31-612119:55 Transfer Assistance none :55 Decline Slf Care/Mob no :55 Phys Cond Stable yes :55 Cognitive Status Finding Observation Time Learning Ability comprehends well :30 Neurological no 18-63-009611:30 Psychological no 03-27-934173:30 Physical no 28-44-020130:30 Hearing no :30 Apartment Locator Needed no 27-72-447236:30 Sign Language no 84-32-761235:30 Emotional no :30 Vision yes 73-04-667197:30 [place] no :30 Financial no :30 Vital signs Type Value Date Respiration Rate 18breaths per minute 75-73-359335: 15 Pulse 88beats per minute :15 Oxygen Saturation 98% 17-34-162120:15 BP Systolic 134mmHg 45-40-634219:15 BP Diastolic 78mmHg 20-15-619585:15 Temperature 97.1F 62-94-434540:45 Height 63inches :06 Weight 234LB 42-27-044396:06 Social history Type Value Smoking Status CURRENT EVERY DAY SMOKER Treatment Plan No treatment plan text is available for this visit. Hospital discharge instructions Valuables no
--- OUTSIDE RECORDS SUMMARY | 2020-01-18 17:23 | XMS REPORT | Clinical Summary ---
Author Author Avery, Jeri Rashid Organization [facility] Address Unknown Phone Unavailable Allergies, Adverse [...] 461.9 Active Abdirahman Carr Acute sinusitis, unspecified LARGE FOR GESTATIONAL AGE ICD-656.60 Inactive Abdirahman Rios MD MASTALGIA ICD-611.71 Inactive Abdirahman Carr BRONCHITIS NOT SPECIFIED ACUTE OR CHRONIC ICD-490 8 Inactive Abdirahman Rios MD FAMILY HISTORY OF ASTHMA ICD-V17.5 Inactive Moni Julian MD DEPRESSION ICD-311 Inactive Good seirra MD ABDOMINAL ABSCESS ICD-682.2 Inactive Abdirahman sanchez [...] FAMILY PLANNING ICD-V25.09 Inactive Good Julian MD , INCIDENTAL PROBLEM ICD-V22.2 Inacti ve Abdirahman Rios MD HIDRADENITIS SUPPURATIVA ICD-705.83 Inactive [...] daily with food 20 22/05/07 AMOXICILLIN-POT CLAVULANATE 28349293631 Active Abdirahman Rios MD Active LORATADINE 10 MG TABS 1 tablet by mouth daily L ORATADINE 20518566614 Active Abdirahman Rios MD Active MOBIC 15 MG TABS 1 tab daily MELOXICAM 935071528 14 No Longer Active Abdirahman Rios MD Active PERCOCET 7.5-325 MG TABS 1 PO tid PRN pain OXYCODONE-ACETAMINOPHEN 47027871423 No Longer Active Abdirahman Rios MD Active LIDODERM 5 % PTCH One patch to painful area RI N. On for 12 hrs, off for 12 hrs. LIDOCAINE 76237296333 No Longer Active Abdirahman Rios MD Active CYCLOBENZAPRINE HCL 10 MG TABS 1/2 - 1 tab PO tid PRN back p ain, muscle spasm CYCLOBENZAPRINE HCL 09128546659 Active Kate Arredondo Active PERCOCET 7.5-325 MG TABS 1 PO q 8 hrs PRN pain OXYCODONE-ACETAMINOPHEN 66216204395 No Longer Active Shola MCGILL Active HYDROCODONE-ACETAMINOPHEN 10-325 MG TABS 1 by mouth ev chaka 8 hours as needed for pain HYDROCODONE-ACETAMINOPHEN 31723207844 Active Edilberto Marino DO Active HYDROCODONE-ACETAMINOPHEN 7.5-325 MG TABS 1 by mouth e very 6 hours as needed for pain HYDROCODONE-ACETAMINOPHEN 47306290879 No Longer Active Good Julian MD Active LC-5 LIDOCAINE 5 % CREA apply 1 time daily to affected area LIDOCAINE (ANORECTAL) 16326006946 Active Shola MCGILL Active CLINDAMYCIN HCL 300 MG CAPS 1 po QID x 7 days CLINDAMYCIN HCL 87585409613 No Longer Active Abdirahman Rios MD Activ e BACTRIM DS 800-160 MG TABS 1 po BID x 7 days 5 SULFAMETHOXAZOLE-TRIMETHOPRIM 87115835519 No Longer Active Abdirahman Rios MD Active ENDOCET 10-325 MG TABS 1 q 6 hr prn OXYCODONE-ACETAMINOPHEN 38317113007 No Longer Active Abdirahman Rios MD Active IBUPROFEN 800 MG TABS 1 tid prn IBUPROFEN 723963 72789 No Longer Active Abdirahman Rios MD Active BACTRIM DS 800-160 MG TABS by mouth twice a day 11/05 SULFAMETHOXAZOLE-TRIMETHOPRIM 48241265185 No Longer Active Good Julian MD Active HYDROCODONE-ACETAMINOPHEN 7.5-325 MG TABS 1 four times a day as needed for pain HYDROCODONE-ACETAMINOPHEN 09895682555 No Longer Activ e Good Julian MD Active KEFLEX 500 MG CAP 1 tab po tid CEPHALEXIN 460278 19570 No Longer Active Hira Moser APRN Active IBUPROFEN 800 MG TAB 1 pill three times daily as needed for pain IBUPROFEN 15841090196 No Longer Active Kalpesh Dong MD Active PROMETHAZINE-CODEINE 6.25-10 MG/5ML SYRP 1 tsp every 6 hrs prn c ough PROMETHAZINE-CODEINE 60878448111 No Longer Active Kalpesh Carr Active ALPRAZOLAM 0.5 MG TABS 1 PO bid PRN ALPRAZOLAM 330148 37553 Active Edilberto Marino DO Active HYDROCODONE-ACETAMINOPHEN 5-325 MG TABS 1 tab by mouth every 6 hours as needed HYDROCODONE-ACETAMINOPHEN 61024031648 No Longer Activ e Shola MCGILL Active CEPHALEXIN 500 MG CAPS 1 PO bid x 7 days CEPHAL EXIN 79538120233 No Longer Active Shola MCGILL Active BACTRIM DS 800-160 MG TAB 1 tab by mouth twice daily 2 TRIMETHOPRIM-SULFAMETHOXAZOLE 19443556806 No Longer Active Kalpesh Dong MD Active HYDROCODONE-ACETAMINOPHEN 5-325 MG TABS 1 PO tid PRN pain 5 HYDROCODONE-ACETAMINOPHEN 21558104541 No Longer Active Abhinav Galvan MD Active IMPLANON 68 MG IMPL IMPLANTED IN LEFT ARM ETONO GESTREL 22486063842 No Longer Active Hira Moser APRN Active AMOXICILLIN 500 MG TABS 2 tabs PO bid x 10 d AM OXICILLIN 85625265700 No Longer Active Kalpesh Dong MD Active LEVAQUIN 500 MG TABS 1 PO q day x 7 days LEVOFL OXACIN 85025960971 No Longer Active Shola MCGILL Active PROAIR HFA 108 (90 BASE) MCG/ACT AERS 2 puff q 4-6 hrs PRN ALBUTEROL SULFATE 93826721866 Active Shola MCGILL Acti ve FIORICET 50-325-40 MG TABS 2 PO q 8 hrs PRN FOSTER [id number] Active Shola MCGILL Active AMITRIPTYLINE HCL 25 MG TAB 1 tab by mouth daily 60 minutes before bedtime AMITRIPTYLINE HCL 34213777947 No Longer Active Shola MCGILL Active LORTAB 5 5-500 MG TABS 1/2 to 1 tablet by mouth go ry 6 hours as needed for pain HYDROCODONE-ACETAMINOPHEN 98215408190 No Longer Active Shola MCGILL Active CEPHALEXIN 500 MG TABS Take one by mouth four times daily, morning, noon, early evening and bedtime. CEPHALEXIN 42100776897 No Long er Active Hira Moser APRN Active TYLENOL/CODEINE #3 300-30 MG TAB 1-2 po q6hr PRN Pain ACETAMINOPHEN-CODEINE 00528337438 No Longer Active Edilberto Marino DO Active PRISTIQ 50 MG [id number] 1 po qd DESVENLAFAXI NE SUCCINATE 80312858929 No Longer Active Edilberto Marino DO Active PENICILLIN V POTASSIUM 500 MG TAB 1 four times a day 2 PENICILLIN V POTASSIUM 82368712693 No Longer Active Edilberto Marino DO Active DOXYCYCLINE HYCLATE 100 MG CAPS Take one (1) tablet by mouth twice a day DOXYCYCLINE HYCLATE 20640414459 No Longer Active Ronnie Galvan MD Active HYDROCODONE-ACETAMINOPHEN 5-325 MG TABS 1 po q 6hr PRN Pain 2011 HYDROCODONE-ACETAMINOPHEN 96603389543 No Longer Active Rosari joan Perez RN Active BACTRIM DS 800-160 MG TAB 1 tab by mouth twice daily 2 TRIMETHOPRIM-SULFAMETHOXAZOLE 99094587208 No Longer Active Kalpesh Dong MD Active LORTAB 5 5-500 MG TABS 1/2 to 1 tablet by mouth go ry 4 hours as needed for pain HYDROCODONE-ACETAMINOPHEN 88482763548 No Longer Active Kalpesh Dong MD Active GENERESS FE 0.8-25 MG-MCG CHEW Take one by mouth daily NORETHIN-ETH ESTRADIOL-FE 91466546410 No Longer Active Kalpesh Dong MD Active HYDROCODONE-ACETAMINOPHEN 7.5-500 MG TABS 1-2 every 4 hours as needed HYDROCODONE-ACETAMINOPHEN 67272681079 No Longer Activ e Kalpesh Dong MD Active FERROUS SULFATE 325 (65 FE) MG TABS 1 tablet by mouth twice yung y FERROUS SULFATE 56887449657 No Longer Active Kalpesh Dong MD Active IBUPROFEN 600 MG TAB 1 po q6-8hr PRN IBUPROFEN 78801584099 No Longer Active Kalpesh Dong MD Active SPIRONOLACTONE 25 MG TAB 1 tablet by mouth daily 01/22 SPIRONOLACTONE 85270703863 No Longer Active Kalpesh Dong MD Acti ve HYDROCODONE-ACETAMINOPHEN 7.5-325 MG TABS 1 po QID PRN Pain 2011 HYDROCODONE-ACETAMINOPHEN 75498305283 No Longer Active Kalpesh Dong MD Active CLINDAMYCIN HCL 300 MG CAPS 1 po q6hr x 7 days CLINDAMYCIN HCL 68353365047 No Longer Active Edilberto Marino DO Active PREDNISONE 20 MG TAB 2 tabs daily for 4 days, 1 t ab daily for 4 days, 1/2 tab daily for 4 days PREDNISONE 39100606208 No Longer Active Edilberto Marino DO Active PERCOCET 5-325 MG TABS 1 tablet by mouth every 6 hours as ne eded for pain OXYCODONE-ACETAMINOPHEN 74659531447 No Longer Active Abdirahman Rios MD Active VITAMINS TABS Take one by mouth daily MV & MIN W/FE-FA TABS 06356030678 No Longer Active Abdirahman Rios MD Active LUIS 3-0.02 MG TABS 1 tablet by mouth daily as directed DROSPIRENONE-ETHINYL ESTRADIOL 89094397160 No Longer Active Abdirahman Rios MD Active LORATADINE 10 MG TABS 1 tablet by mouth daily L ORATADINE 11332430729 No Longer Active Kalpesh Dong MD Active HYDROCODONE-ACETAMINOPHEN 5-325 MG TABS 1 po q 6hr PRN Pain 2010 HYDROCODONE-ACETAMINOPHEN 55747473097 No Longer Active Edilberto Marino DO Active BACTRIM DS 800-160 MG TAB 1 tab by mouth twice daily 2 TRIMETHOPRIM-SULFAMETHOXAZOLE 94529861871 No Longer Active Abdirahman Rios MD Active 28-0.8 MG TABS Take one by mouth daily 09/20 VIT-FE FUMARATE-FA 33498530300 No Longer Active Abdirahman Rios MD Active CIPRO 500 MG TAB 1 tablet by mouth twice daily CIPROFLOXACIN HCL 80193347443 No Longer Active Abdirahman Rios MD Active BENADRYL 25 MG CAP 1 po q8hr PRN Congestion DIPHENHYDRAMINE HCL 05365016635 No Longer Active Abdirahman Rios MD Active ZOLOFT 50 MG TAB 1 po qd SERTRALINE HCL 430723 38273 No Longer Active Abdirahman Rios MD Active AMOXICILLIN 875 MG TABS 1 tab by mouth twice daily 201 08/09/13 AMOXICILLIN 26498611094 No Longer Active Abdirahman Rios MD Activ e AMOXICILLIN 875 MG TABS 1 tab by mouth twice daily 201 07/19/27 AMOXICILLIN 74120858984 No Longer Active Abdirahman Rios MD Activ e BACTRIM DS 800-160 MG TAB 2 tab by mouth twice daily 2 TRIMETHOPRIM-SULFAMETHOXAZOLE 68017890041 No Longer Active Abdirahman Rios MD Active KEFLEX 500 MG CAP 1 po tid x 10 days CEPHALEXIN 36854307308 No Longer Active Abdirahman Rios MD Active AMOXICILLIN 875 MG TABS 1 tab by mouth twice daily 201 07/18/07 AMOXICILLIN 32837882797 No Longer Active Abdirahman Rios MD Activ e BACTRIM DS 800-160 MG TAB 2 tab by mouth twice daily 2 BACTRIM DS 800-160 MG TAB TRIMETHOPRIM-SULFAMETHOXAZOLE Inactive ZOLOFT 50 MG TAB 1 po qd ZOLOFT 50 MG TAB 3129 41 SERTRALINE HCL Inactive BENADRYL 25 MG CAP 1 po q8hr PRN Congestion BENADRYL 25 MG CAP 3841670 DIPHENHYDRAMINE HCL Inactive 28-0.8 MG TABS Take one by mouth daily 09/20 28-0.8 MG TABS VIT-FE FUMARATE-FA Inactive HYDROCODONE-ACETAMINOPHEN 5-325 MG TABS 1 po q 6hr PRN Pain 2010 HYDROCODONE-ACETAMINOPHEN 5-325 MG TABS 526146 HYDROCODONE-ACETAMINOPHEN Inactive LORATADINE 10 MG TABS 1 tablet by mouth daily LORATADINE 10 MG TABS 103502 LORATADINE Inactive LUIS 3-0.02 MG TABS 1 tablet by mouth daily as directed LUIS 3-0.02 MG TABS DROSPIRENONE-ETHINYL ESTRADIOL Inactive VITAMINS TABS Take one by mouth daily VITAMINS TABS MV & MIN W/FE-FA TABS Inactive PERCOCET 5-325 MG TABS 1 tablet by mouth every 6 hours as ne eded for pain PERCOCET 5-325 MG TABS 7983994 OXYCODONE-ACETAMIN OPHEN Inactive PREDNISONE 20 MG TAB 2 tabs daily for 4 days, 1 t ab daily for 4 days, 1/2 tab daily for 4 days PREDNISONE 20 MG TAB 379649 PREDNISON E Inactive CLINDAMYCIN HCL 300 MG CAPS 1 po q6hr x 7 days CLINDAMYCIN HCL 300 MG CAPS 011967 CLINDAMYCIN HCL Inactive HYDROCODONE-ACETAMINOPHEN 7.5-325 MG TABS 1 po QID PRN Pain 2011 HYDROCODONE-ACETAMINOPHEN 7.5-325 MG TABS 359512 HYDROCODONE-ACETAMINOPHEN Inactive SPIRONOLACTONE 25 MG TAB 1 tablet by mouth daily 01/22 SPIRONOLACTONE 25 MG TAB 099006 SPIRONOLACTONE Inactive IBUPROFEN 600 MG TAB 1 po q6-8hr PRN IBUPROFEN 600 MG TAB 415234 IBUPROFEN Inactive FERROUS SULFATE 325 (65 FE) MG TABS 1 tablet by mouth twice yung y FERROUS SULFATE 325 (65 FE) MG TABS 814804 FERROUS SULF ATE Inactive HYDROCODONE-ACETAMINOPHEN 7.5-500 MG [...] PRN Pain 2011 HYDROCODONE-ACETAMINOPHEN 5-325 MG TABS 462721 HYDROCODONE-ACETAMINOPHEN Inactive DOXYCYCLINE HYCLATE 100 MG CAPS Take one (1) tablet by mouth twice a day DOXYCYCLINE HYCLATE 100 MG CAPS 008421 DOXYCYCLINE HYCLATE Inactive PENICILLIN V POTASSIUM 500 MG TAB 1 four times a day 2 PENICILLIN V POTASSIUM 500 MG TAB 794082 PENICILLIN V POTASSIUM [place] ctive PRISTIQ 50 MG [id number] 1 po qd PRISTIQ 50 MG [id number]-TIN DESVENLAFAXINE SUCCINATE Inactive TYLENOL/CODEINE #3 300-30 MG TAB 1-2 po q6hr PRN Pain TYLENOL/CODEINE #3 300-30 MG TAB 160160 ACETAMINOPHEN-CODEINE Inact krishna CEPHALEXIN 500 MG TABS Take one by mouth four times daily, morning, noon, early evening and bedtime. CEPHALEXIN 500 MG TABS 672525 CEPHALEXIN Inactive LORTAB 5 5-500 MG TABS 1/2 to 1 tablet by mouth go ry 6 hours as needed for pain LORTAB 5 5-500 MG TABS HYDROCODONE-A CETAMINOPHEN Inactive AMITRIPTYLINE HCL 25 MG TAB 1 tab by mouth daily 60 minutes before bedtime AMITRIPTYLINE HCL 25 MG TAB 240405 AMITRIPTYLINE HCL Inactive AMOXICILLIN 500 MG TABS 2 tabs PO bid x 10 d 7 AMOXICILLIN 500 MG TABS 146816 AMOXICILLIN Inactive IMPLANON 68 MG IMPL IMPLANTED IN LEFT ARM IMPLANON 68 MG IMPL ETONOGESTREL Inactive HYDROCODONE-ACETAMINOPHEN 5-325 MG TABS 1 PO tid PRN pain 5 HYDROCODONE-ACETAMINOPHEN 5-325 MG TABS 950734 HYDROCODONE-ACETAMIN OPHEN Inactive BACTRIM DS 800-160 MG TAB 1 tab by mouth twice daily 2 BACTRIM DS 800-160 MG TAB TRIMETHOPRIM-SULFAMETHOXAZOLE Inac tive CEPHALEXIN 500 MG CAPS 1 PO bid x 7 days CEPHALEXIN 500 MG CAPS 431466 CEPHALEXIN Inactive HYDROCODONE-ACETAMINOPHEN 5-325 MG TABS 1 tab by mouth every 6 hours as needed HYDROCODONE-ACETAMINOPHEN 5-325 MG TABS 644941 HYDROCODONE-ACETAMINOPHEN Inactive PROMETHAZINE-CODEINE 6.25-10 MG/5ML SYRP 1 tsp every 6 hrs prn c ough PROMETHAZINE-CODEINE 6.25-10 MG/5ML SYRP 246311 PROMETH AZINE-CODEINE Inactive IBUPROFEN 800 MG TAB 1 pill three times daily as needed for pain IBUPROFEN 800 MG TAB 227259 IBUPROFEN Inactive KEFLEX 500 MG CAP 1 tab po tid KEFLEX 500 MG CAP 953395 CEPHALEXIN Inactive HYDROCODONE-ACETAMINOPHEN 7.5-325 MG TABS 1 four times a day as needed for pain HYDROCODONE-ACETAMINOPHEN 7.5-325 MG TABS 235436 HYDROCODONE-ACETAMINOPHEN Inactive BACTRIM DS 800-160 MG TABS by mouth twice a day 11/05 BACTRIM DS 800-160 MG TABS SULFAMETHOXAZOLE-TRIMETHOPRIM Inactive IBUPROFEN 800 MG TABS 1 tid prn IBUPROFEN 800 MG TABS 695854 IBUPROFEN Inactive ENDOCET 10-325 MG TABS 1 q 6 hr prn ENDOC ET 10-325 MG TABS 0429044 OXYCODONE-ACETAMINOPHEN Inactive HYDROCODONE-ACETAMINOPHEN 7.5-325 MG TABS 1 by mouth e very 6 hours as needed for pain HYDROCODONE-ACETAMINOPHEN 7.5-325 MG TABS 406905 HYDROCODONE-ACETAMINOPHEN Inactive PERCOCET 7.5-325 MG TABS 1 PO q 8 hrs PRN pain PERCOCET 7.5-325 MG TABS 3430242 OXYCODONE-ACETAMINOPHEN Inactive LIDODERM 5 % PTCH One patch to painful area RI N. On for 12 hrs, off for 12 hrs. LIDODERM 5 % PTCH 0091660 LIDOCAINE Inactiv e PERCOCET 7.5-325 MG TABS 1 PO tid PRN pain PERCOCET 7.5- 325 MG TABS 6064155 OXYCODONE-ACETAMINOPHEN Inactive MOBIC 15 MG TABS 1 tab daily MOBIC 15 MG TABS 15 2695 MELOXICAM Inactive AMOXICILLIN 875 MG TABS 1 tab by mouth twice daily 201 07/18/07 AMOXICILLIN 875 MG TABS 378119 AMOXICILLIN Inactive KEFLEX 500 MG CAP 1 po tid x 10 days KEFLEX 500 MG CAP 703620 CEPHALEXIN Inactive AMOXICILLIN 875 MG TABS 1 tab by mouth twice daily 201 07/19/27 AMOXICILLIN 875 MG TABS 237168 AMOXICILLIN Inactive AMOXICILLIN 875 MG TABS 1 tab by mouth twice daily 201 08/09/13 AMOXICILLIN 875 MG TABS 714431 AMOXICILLIN Inactive CIPRO 500 MG TAB 1 tablet by mouth twice daily CIPRO 500 MG TAB 344729 CIPROFLOXACIN HCL Inactive BACTRIM DS 800-160 MG TAB 1 tab by mouth twice daily 2 BACTRIM DS 800-160 MG TAB TRIMETHOPRIM-SULFAMETHOXAZOLE Inac tive LEVAQUIN 500 MG TABS 1 PO q day x 7 days LEVAQUIN 500 MG TABS 790313 LEVOFLOXACIN Inactive CLINDAMYCIN HCL 300 MG CAPS 1 po QID x 7 days CLINDAMYCIN HCL 300 MG CAPS 863418 CLINDAMYCIN HCL Inactive Advance Directives Directive Description Start Date PERMISSION TO SHARE Immunizations Vaccine Administration Date Value Standard Alf cription Seasonal influenza vaccine, injectable, containing preservative, for > 3 years old (Afluria, FluLaval, Fluzone, Fluvirin, Fluarix, Agriflu(>= 18 yo)) Fluzone (>3 yrs.) [[id number]] Influenza, seasonal, inject able Seasonal influenza vaccine, injectable, preservative free, for > 3 years old (Afluria, FluLaval, Fluzone, Fluvirin, Fluarix, Agriflu(>= 18 yo)) Fluzone preservative free (>3 yrs.) [[id number]] Influenza, seasonal, injectable, preservative free Seasonal influenza vaccine, injectable, containing preservative, for > 3 years old (Afluria, FluLaval, Fluzone, Fluvirin, Fluarix, Agriflu(>= 18 yo)) Fluzone (>3 yrs.) [[id number]] Influenza, seasonal, inject able Seasonal influenza vaccine, injectable, containing preservative, for > 3 years old (Afluria, FluLaval, Fluzone, Fluvirin, Fluarix, Agriflu(>= 18 yo)) Fluzone (>3 yrs.) [[id number]] Influenza, seasonal, inject able dT (Diphtheria and Tetanus) booster Historical Td(adult) unspecified formulation Vital Signs Date Name Value Unit Range Description blood pressure, diastolic 91 mm[Hg] BP ribeiro blood pressure, systolic 139 mm[Hg] BP sys pulse rate E&M 92 /min Heart rate temperature E&M 98.1 [degF] Body temp erature weight E&M 239.2 [lb_av] Weight Measure d blood pressure, diastolic [...] ... - Chemistry sodium, serum 140 mmol/L 748-052 0098/02/24 potassium, serum 4.3 mmol/L 3.5-5.2 chloride, serum [...] 4.3-6.0 Lab Report: T3, TOTAL, INSULIN - Handkerchief Presser ry triiodothyronine, serum 78 ng/dL 76-181 Lab [...] mg/dL Encounters Code Encounter Date Provider Facility CPT-66647 Level 3 Est. Patient 14:03:08 INCOME TAX MANAGER Abdirahman Rios MD [facility] CPT-59333 Level 3 Est. Patient 18:12:34 CDT Shola Houghsabi [facility] CPT-22345 Level 3 Est. Patient 19:34:46 CDT Shola Houghsabi [facility] CPT-46886 Level 3 Est. Patient 14:19:37 CDT Abdirahman Rios MD [facility] CPT-58353 Level 3 Est. Patient 14:11:58 CDT Kalpesh goins MD [facility] CPT-81272 Level 3 Est. Patient 16:50:00 CDT Michelle MERCADO [facility] CPT-64005 Level 3 Est. Patient 17:11:32 INCOME TAX MANAGER Brandie bates MD PhD [facility] CPT-95627 Level 3 Est. Patient 16:31:47 INCOME TAX MANAGER Shola Wright [facility] CPT-64977 Level 3 Est. Patient 17:51:10 INCOME TAX MANAGER Abhinav Galvan MD [facility] CPT-37078 Level 4 Est. Patient 12:54:56 INCOME TAX MANAGER Kalpesh goins MD [facility] CPT-23529 Level 4 Est. Patient 12:53:56 INCOME TAX MANAGER Kalpesh goins MD [facility] CPT-53818 Level 3 Est. Patient 17:56:58 CDT Shola Wright [facility] CPT-06500 Level 3 Est. Patient 14:26:20 CDT Janak butcher [facility] CPT-34408 Level 3 Est. Patient 09:38:41 CDT Shola Wright [facility] CPT-04811 Level 3 Est. Patient 14:45:26 CDT Edilberto tiwari DO [facility] CPT-16581 Level 3 Est. Patient 10:51:33 CD[facility] Level 3 Est. Patient 11:57:55 INCOME TAX MANAGER Shola Wright [facility] CPT-61642 Level 3 Est. Patient 09:53:33 INCOME TAX MANAGER Edilberto tiwari [facility] CPT-15621 Level 3 Est. Patient 14:42:54 INCOME TAX MANAGER Abhinav Galvan MD [facility] CPT-14583 Level 3 Est. Patient 15:10:02 CDT Janak Stevenamira butcher [facility] CPT-95172 Level 3 Est. Patient 15:20:20 CDT Theo dennis MD [facility]-32672 Level 2 Est. Patient 14:08:57 CDT Kalpesh goins MD [facility] CPT-45840 Level 3 Est. Patient 13:56:19 CDT Abdirahman Rios MD [facility] CPT-62712 Level 3 Est. Patient 13:59:37 CDT Abdirahman Rios MD [facility] CPT-33465 Level 2 Est. Patient 14:44:59 CDT Kalpesh goins MD [facility] CPT-96392 Level 3 Est. Patient 06:06:23 CDT Edilberto tiwari [facility] CPT-28955 Level 3 Est. Patient 15:23:54 CDT Abdirahman Rios MD [facility] CPT-37838 Level 3 Est. Patient 15:43:49 CDT Abdirahman Rios MD [facility] CPT-29977 Level 3 Est. Patient 12:46:47 INCOME TAX MANAGER Abdirahman Rios MD [facility] CPT-36723 Level 3 Est. Patient 08:13:35 INCOME TAX MANAGER Abdirahman Rios MD [facility] CPT-61430 Level 2 Est. Patient 09:36:42 INCOME TAX MANAGER Abdirahman Rios MD [facility] CPT-19797 Level 3 Est. Patient 10:56:43 CDT Abdirahman Rios MD [facility] CPT-91397 Level 3 Est. Patient 18:24:52 CDT Abdirahman Rios MD [facility] CPT-07897 Level 3 Est. Patient 13:27:22 CDT Abdirahman Rios MD [facility] Procedures Code Procedure Name Date Entry Date Standard Desc ription CPT-76860 Immunization Single Admin 16:41:53 CDT 2013 CPT-38920 Fluzone Quadrivalent Intramuscular Suspe nsion 0.5 ML 16:41:53 CDT CPT-OV Office Visit 16:39:18 CDT CPT-OV Office Visit 16:16:36 CDT CPT-OV Office Visit 15:34:48 CDT CPT-35944 Postop F/U Visit 14:50:12 CDT CPT-18581 Postop F/U Visit 14:41:10 CDT CPT-45406 Venipuncture Draw Fee 11:38:04 INCOME TAX MANAGER CPT-76376 Postop F/U Visit 19:02:59 INCOME TAX MANAGER CPT-26450 Postop F/U Visit 12:04:54 INCOME TAX MANAGER CPT-04171 Administration single or combination vac cine inc oral 15:56:43 CDT CPT-59190 Influenza split virus > age 3 15:56:43 CDT CPT-25736 Hand comp min 3V 14:25:19 CDT CPT-04012 Postop F/U Visit 21:40:51 CDT CPT-21957 Postop F/U Visit 10:58:43 CDT CPT-18160 Administration single or combination vac cine inc oral 12:33:54 INCOME TAX MANAGER CPT-17570 Influenza Preservative Free split virus >age 3 12:33:54 INCOME TAX MANAGER CPT-28438 Administration single or combination vac cine inc oral 09:30:51 CDT CPT-28760 Influenza split virus > age 3 09:30:51 CDT CPT-72390 Postop F/U Visit 15:14:53 CDT CPT-59113 Postop F/U Visit 13:50:14 CDT CPT-34608 Postop F/U Visit 13:34:52 CDT CPT-OV Office Visit 16:55:03 CDT CPT-65149 [place] of cervix w bx ECC 13:32:50 CDT 10/19 CPT-J1885 Toradol 60 mg (Ketorolac) 15:31:59 CDT 2011 CPT-J1885 Toradol 60 mg (Ketorolac) 15:23:54 CDT 2011 CPT-12078 Visit 11:34:37 INCOME TAX MANAGER CPT-82178 Visit 10:52:39 INCOME TAX MANAGER CPT-23886 Visit 10:12:02 INCOME TAX MANAGER CPT-12259 Visit 11:22:43 INCOME TAX MANAGER CPT-90365 Visit 11:24:12 INCOME TAX MANAGER CPT-43620 Visit 10:47:05 INCOME TAX MANAGER CPT-OV Office Visit 10:26:16 INCOME TAX MANAGER CPT-OV Office Visit 15:34:31 INCOME TAX MANAGER CPT-92492 Visit 10:42:08 INCOME TAX MANAGER CPT-43047 Visit 10:52:45 INCOME TAX MANAGER CPT-000 Give Appropriate Flu Vaccine 16:56:41 CDT 2 CPT-08228 Administration single or combination vac cine inc oral 10:33:21 CDT CPT-40716 Influenza split virus > age 3 10:33:21 CDT CPT-56839 Visit 13:23:09 CDT CPT-14714 Visit 18:24:52 CDT CPT-25214 Sono OB comp > 14 weeks 12:07:49 CDT 04/07
--- OUTSIDE RECORDS SUMMARY | 2020-01-18 17:24 | XMS REPORT | Clinical Summary ---
Author Author Admin, Jeri Rashid Organization [facility] Address Unknown Phone Allergies, Adverse Reactions, [...] and subcutaneous tis braden, NEC ICD-V58.77 Inactive oGod Julian MD Medication List Medication Instructions Start Date Stop Date Generic Name NDC Status Provider Patient Instruction CLINDAMYCIN HCL 300 MG CAPS 1 po QID x 7 days CLINDAMYCIN HCL 98851006924 Active Abdirahman Rios MD Active HYDROCODONE-ACETAMINOPHEN 7.5-325 MG TABS 1 by mouth e very 6 hours as needed for pain HYDROCODONE-ACETAMINOPHEN 22961142749 Active Shola MCGILL Active BACTRIM DS 800-160 MG TABS 1 po BID x 7 days 5 SULFAMETHOXAZOLE-TRIMETHOPRIM 95729877816 No Longer Active Abdirahman Rios MD Active ENDOCET 10-325 MG TABS 1 q 6 hr prn OXYCODONE-ACETAMINOPHEN 02216916072 No Longer Active Abdirahman Rios MD Active IBUPROFEN 800 MG TABS 1 tid prn IBUPROFEN 343766 29867 No Longer Active Abdirahman Rios MD Active BACTRIM DS 800-160 MG TABS by mouth twice a day 11/05 SULFAMETHOXAZOLE-TRIMETHOPRIM 14102551822 No Longer Active Good Julian MD Active HYDROCODONE-ACETAMINOPHEN 7.5-325 MG TABS 1 four times a day as needed for pain HYDROCODONE-ACETAMINOPHEN 50374804421 No Longer Activ e Good Julian MD Active KEFLEX 500 MG CAP 1 tab po tid CEPHALEXIN 734909 76559 No Longer Active Karenina Shanti RESIDENT INSPECTOR Active IBUPROFEN 800 MG TAB 1 pill three times daily as needed for pain IBUPROFEN 53861845681 No Longer Active Kalpesh Dong MD Active PROMETHAZINE-CODEINE 6.25-10 MG/5ML SYRP 1 tsp every 6 hrs prn c ough PROMETHAZINE-CODEINE 08804968147 No Longer Active Kalpesh Carr Active ALPRAZOLAM 0.5 MG TABS 1 PO bid PRN ALPRAZOLAM 390340 75474 Active Shola MCGILL Active HYDROCODONE-ACETAMINOPHEN 5-325 MG TABS 1 tab by mouth every 6 hours as needed HYDROCODONE-ACETAMINOPHEN 96863663688 No Longer Activ e Shola MCGILL Active CEPHALEXIN 500 MG CAPS 1 PO bid x 7 days CEPHAL EXIN 87302728222 No Longer Active Shola MCGILL Active BACTRIM DS 800-160 MG TAB 1 tab by mouth twice daily 2 TRIMETHOPRIM-SULFAMETHOXAZOLE 65288807392 No Longer Active Kalpesh Dong MD Active HYDROCODONE-ACETAMINOPHEN 5-325 MG TABS 1 PO tid PRN pain 5 HYDROCODONE-ACETAMINOPHEN 36945515649 No Longer Active Abhinav Galvan MD Active IMPLANON 68 MG IMPL IMPLANTED IN LEFT ARM ETONO GESTREL 15737824059 No Longer Active Hira Moser APRN Active AMOXICILLIN 500 MG TABS 2 tabs PO bid x 10 d AM OXICILLIN 70510092346 No Longer Active Kalpesh Dong MD Active LEVAQUIN 500 MG TABS 1 PO q day x 7 days LEVOFL OXACIN 52985369170 No Longer Active Shola MCGILL Active PROAIR HFA 108 (90 BASE) MCG/ACT AERS 2 puff q 4-6 hrs PRN ALBUTEROL SULFATE 50718913172 Active Shola MCGILL Acti ve FIORICET 50-325-40 MG TABS 2 PO q 8 hrs PRN FOSTER [id number] 56141792926 Active Abdirahman Rios MD Active AMITRIPTYLINE HCL 25 MG TAB 1 tab by mouth daily 60 minutes before bedtime AMITRIPTYLINE HCL 82331493344 No Longer Active Shola MCGILL Active LORTAB 5 5-500 MG TABS 1/2 to 1 tablet by mouth go ry 6 hours as needed for pain HYDROCODONE-ACETAMINOPHEN 96908289164 No Longer Active Shola MCGILL Active CEPHALEXIN 500 MG TABS Take one by mouth four times daily, morning, noon, early evening and bedtime. CEPHALEXIN 10257229443 No Long er Active Hira Moser RESIDENT INSPECTOR Active TYLENOL/CODEINE #3 300-30 MG TAB 1-2 po q6hr PRN Pain ACETAMINOPHEN-CODEINE 98850864869 No Longer Active Edilberto Marino DO Active PRISTIQ 50 MG [id number] 1 po qd DESVENLAFAXI NE SUCCINATE 02487714579 No Longer Active Edilberto Marino DO Active PENICILLIN V POTASSIUM 500 MG TAB 1 four times a day 2 PENICILLIN V POTASSIUM 03608168666 No Longer Active Edilberto Marino DO Active DOXYCYCLINE HYCLATE 100 MG CAPS Take one (1) tablet by mouth twice a day DOXYCYCLINE HYCLATE 85346461568 No Longer Active Ronnie Galvan MD Active HYDROCODONE-ACETAMINOPHEN 5-325 MG TABS 1 po q 6hr PRN Pain 2011 HYDROCODONE-ACETAMINOPHEN 49164916015 No Longer Active Jerson Perez RN Active BACTRIM DS 800-160 MG TAB 1 tab by mouth twice daily 2 TRIMETHOPRIM-SULFAMETHOXAZOLE 37332810188 No Longer Active Kalpesh Dong MD Active LORTAB 5 5-500 MG TABS 1/2 to 1 tablet by mouth go ry 4 hours as needed for pain HYDROCODONE-ACETAMINOPHEN 56975222296 No Longer Active Kalpesh Dong MD Active GENERESS FE 0.8-25 MG-MCG CHEW Take one by mouth daily NORETHIN-ETH ESTRADIOL-FE 80662905610 No Longer Active Kalpesh Dong MD Active HYDROCODONE-ACETAMINOPHEN 7.5-500 MG TABS 1-2 every 4 hours as needed HYDROCODONE-ACETAMINOPHEN 93536171058 No Longer Activ e Kalpesh Dong MD Active FERROUS SULFATE 325 (65 FE) MG TABS 1 tablet by mouth twice yung y FERROUS SULFATE 09574681396 No Longer Active Kalpesh Dong MD Active IBUPROFEN 600 MG TAB 1 po q6-8hr PRN IBUPROFEN 81972296479 No Longer Active Kalpesh Dong MD Active SPIRONOLACTONE 25 MG TAB 1 tablet by mouth daily 01/22 SPIRONOLACTONE 50747120542 No Longer Active Kalpesh Dong MD Acti ve HYDROCODONE-ACETAMINOPHEN 7.5-325 MG TABS 1 po QID PRN Pain 2011 HYDROCODONE-ACETAMINOPHEN 87827158160 No Longer Active Kalpesh Dong MD Active CLINDAMYCIN HCL 300 MG CAPS 1 po q6hr x 7 days CLINDAMYCIN HCL 72402127777 No Longer Active Edilberto Marino DO Active PREDNISONE 20 MG TAB 2 tabs daily for 4 days, 1 t ab daily for 4 days, 1/2 tab daily for 4 days PREDNISONE 53638561891 No Longer Active Edilberto Marino DO Active PERCOCET 5-325 MG TABS 1 tablet by mouth every 6 hours as ne eded for pain OXYCODONE-ACETAMINOPHEN 19952190503 No Longer Active Abdirahman Rios MD Active VITAMINS TABS Take one by mouth daily MV & MIN W/FE-FA TABS 46898326983 No Longer Active Abdirahman Rios MD Active LUIS 3-0.02 MG TABS 1 tablet by mouth daily as directed DROSPIRENONE-ETHINYL ESTRADIOL 40590476356 No Longer Active Abdirahman Rios MD Active LORATADINE 10 MG TABS 1 tablet by mouth daily L ORATADINE 52863900866 No Longer Active Kalpesh Dong MD Active HYDROCODONE-ACETAMINOPHEN 5-325 MG TABS 1 po q 6hr PRN Pain 2010 HYDROCODONE-ACETAMINOPHEN 76001070839 No Longer Active Edilberto Marino DO Active BACTRIM DS 800-160 MG TAB 1 tab by mouth twice daily 2 TRIMETHOPRIM-SULFAMETHOXAZOLE 40550463159 No Longer Active Abdirahman Rios MD Active 28-0.8 MG TABS Take one by mouth daily 09/20 VIT-FE FUMARATE-FA 57806237643 No Longer Active Abdirahman Rios MD Active CIPRO 500 MG TAB 1 tablet by mouth twice daily CIPROFLOXACIN HCL 80861565071 No Longer Active Abdirahman Rios MD Active BENADRYL 25 MG CAP 1 po q8hr PRN Congestion DIPHENHYDRAMINE HCL 73690506398 No Longer Active Abdirahman Rios MD Active ZOLOFT 50 MG TAB 1 po qd SERTRALINE HCL 311975 96413 No Longer Active Abdirahman Rios MD Active AMOXICILLIN 875 MG TABS 1 tab by mouth twice daily 201 08/09/13 AMOXICILLIN 64886297095 No Longer Active Abdirahman Rios MD Activ e AMOXICILLIN 875 MG TABS 1 tab by mouth twice daily 201 07/19/27 AMOXICILLIN 36317617715 No Longer Active Abdirahman Rios MD Activ e BACTRIM DS 800-160 MG TAB 2 tab by mouth twice daily 2 TRIMETHOPRIM-SULFAMETHOXAZOLE 12112802679 No Longer Active Abdirahman Rios MD Active KEFLEX 500 MG CAP 1 po tid x 10 days CEPHALEXIN 11404734241 No Longer Active Abdirahman Rios MD Active AMOXICILLIN 875 MG TABS 1 tab by mouth twice daily 201 07/18/07 AMOXICILLIN 04873527363 No Longer Active Abdirahman Rios MD Activ e BACTRIM DS 800-160 MG TAB 2 tab by mouth twice daily 2 BACTRIM DS 800-160 MG TAB TRIMETHOPRIM-SULFAMETHOXAZOLE Inactive ZOLOFT 50 MG TAB 1 po qd ZOLOFT 50 MG TAB 3129 41 SERTRALINE HCL Inactive BENADRYL 25 MG CAP 1 po q8hr PRN Congestion BENADRYL 25 MG CAP 0655969 DIPHENHYDRAMINE HCL Inactive 28-0.8 MG TABS Take one by mouth daily 09/20 28-0.8 MG TABS VIT-FE FUMARATE-FA Inactive HYDROCODONE-ACETAMINOPHEN 5-325 MG TABS 1 po q 6hr PRN Pain 2010 HYDROCODONE-ACETAMINOPHEN 5-325 MG TABS 314788 HYDROCODONE-ACETAMINOPHEN Inactive LORATADINE 10 MG TABS 1 tablet by mouth daily LORATADINE 10 MG TABS 753068 LORATADINE Inactive LUIS 3-0.02 MG TABS 1 tablet by mouth daily as directed LUIS 3-0.02 MG TABS DROSPIRENONE-ETHINYL ESTRADIOL Inactive VITAMINS TABS Take one by mouth daily VITAMINS TABS MV & MIN W/FE-FA TABS Inactive PERCOCET 5-325 MG TABS 1 tablet by mouth every 6 hours as ne eded for pain PERCOCET 5-325 MG TABS 1834790 OXYCODONE-ACETAMIN OPHEN Inactive PREDNISONE 20 MG TAB 2 tabs daily for 4 days, 1 t ab daily for 4 days, 1/2 tab daily for 4 days PREDNISONE 20 MG TAB 504423 PREDNISON E Inactive CLINDAMYCIN HCL 300 MG CAPS 1 po q6hr x 7 days CLINDAMYCIN HCL 300 MG CAPS 773914 CLINDAMYCIN HCL Inactive HYDROCODONE-ACETAMINOPHEN 7.5-325 MG TABS 1 po QID PRN Pain 2011 HYDROCODONE-ACETAMINOPHEN 7.5-325 MG TABS 185743 HYDROCODONE-ACETAMINOPHEN Inactive SPIRONOLACTONE 25 MG TAB 1 tablet by mouth daily 01/22 SPIRONOLACTONE 25 MG TAB 102537 SPIRONOLACTONE Inactive IBUPROFEN 600 MG TAB 1 po q6-8hr PRN IBUPROFEN 600 MG TAB 054655 IBUPROFEN Inactive FERROUS SULFATE 325 (65 FE) MG TABS 1 tablet by mouth twice yung y FERROUS SULFATE 325 (65 FE) MG TABS 946212 FERROUS SULF ATE Inactive HYDROCODONE-ACETAMINOPHEN 7.5-500 MG [...] PRN Pain 2011 HYDROCODONE-ACETAMINOPHEN 5-325 MG TABS 484579 HYDROCODONE-ACETAMINOPHEN Inactive DOXYCYCLINE HYCLATE 100 MG CAPS Take one (1) tablet by mouth twice a day DOXYCYCLINE HYCLATE 100 MG CAPS 800608 DOXYCYCLINE HYCLATE Inactive PENICILLIN V POTASSIUM 500 MG TAB 1 four times a day 2 PENICILLIN V POTASSIUM 500 MG TAB 326604 PENICILLIN V POTASSIUM Siri ctive PRISTIQ 50 MG [id number] 1 po qd PRISTIQ 50 MG [id number] DESVENLAFAXINE SUCCINATE Inactive TYLENOL/CODEINE #3 300-30 MG TAB 1-2 po q6hr PRN Pain TYLENOL/CODEINE #3 300-30 MG TAB 541326 ACETAMINOPHEN-CODEINE Inact krishna CEPHALEXIN 500 MG TABS Take one by mouth four times daily, morning, noon, early evening and bedtime. CEPHALEXIN 500 MG TABS 986343 CEPHALEXIN Inactive LORTAB 5 5-500 MG TABS 1/2 to 1 tablet by mouth go ry 6 hours as needed for pain LORTAB 5 5-500 MG TABS HYDROCODONE-A CETAMINOPHEN Inactive AMITRIPTYLINE HCL 25 MG TAB 1 tab by mouth daily 60 minutes before bedtime AMITRIPTYLINE HCL 25 MG TAB 491976 AMITRIPTYLINE HCL Inactive AMOXICILLIN 500 MG TABS 2 tabs PO bid x 10 d 7 AMOXICILLIN 500 MG TABS 026975 AMOXICILLIN Inactive IMPLANON 68 MG IMPL IMPLANTED IN LEFT ARM IMPLANON 68 MG IMPL ETONOGESTREL Inactive HYDROCODONE-ACETAMINOPHEN 5-325 MG TABS 1 PO tid PRN pain 5 HYDROCODONE-ACETAMINOPHEN 5-325 MG TABS 422158 HYDROCODONE-ACETAMIN OPHEN Inactive BACTRIM DS 800-160 MG TAB 1 tab by mouth twice daily 2 BACTRIM DS 800-160 MG TAB TRIMETHOPRIM-SULFAMETHOXAZOLE Inac tive CEPHALEXIN 500 MG CAPS 1 PO bid x 7 days CEPHALEXIN 500 MG CAPS 806240 CEPHALEXIN Inactive HYDROCODONE-ACETAMINOPHEN 5-325 MG TABS 1 tab by mouth every 6 hours as needed HYDROCODONE-ACETAMINOPHEN 5-325 MG TABS 711238 HYDROCODONE-ACETAMINOPHEN Inactive PROMETHAZINE-CODEINE 6.25-10 MG/5ML SYRP 1 tsp every 6 hrs prn c ough PROMETHAZINE-CODEINE 6.25-10 MG/5ML SYRP 799672 PROMETH AZINE-CODEINE Inactive IBUPROFEN 800 MG TAB 1 pill three times daily as needed for pain IBUPROFEN 800 MG TAB 329377 IBUPROFEN Inactive KEFLEX 500 MG CAP 1 tab po tid KEFLEX 500 MG CAP 561366 CEPHALEXIN Inactive HYDROCODONE-ACETAMINOPHEN 7.5-325 MG TABS 1 four times a day as needed for pain HYDROCODONE-ACETAMINOPHEN 7.5-325 MG TABS 575387 HYDROCODONE-ACETAMINOPHEN Inactive BACTRIM DS 800-160 MG TABS by mouth twice a day 11/05 BACTRIM DS 800-160 MG TABS SULFAMETHOXAZOLE-TRIMETHOPRIM Inactive IBUPROFEN 800 MG TABS 1 tid prn IBUPROFEN 800 MG TABS 320066 IBUPROFEN Inactive ENDOCET 10-325 MG TABS 1 q 6 hr prn ENDOC ET 10-325 MG TABS 2314891 OXYCODONE-ACETAMINOPHEN Inactive AMOXICILLIN 875 MG TABS 1 tab by mouth twice daily 201 07/18/07 AMOXICILLIN 875 MG TABS 079959 AMOXICILLIN Inactive KEFLEX 500 MG CAP 1 po tid x 10 days KEFLEX 500 MG CAP 529749 CEPHALEXIN Inactive AMOXICILLIN 875 MG TABS 1 tab by mouth twice daily 201 07/19/27 AMOXICILLIN 875 MG TABS 938777 AMOXICILLIN Inactive AMOXICILLIN 875 MG TABS 1 tab by mouth twice daily 201 08/09/13 AMOXICILLIN 875 MG TABS 572096 AMOXICILLIN Inactive CIPRO 500 MG TAB 1 tablet by mouth twice daily CIPRO 500 MG TAB 018837 CIPROFLOXACIN HCL Inactive BACTRIM DS 800-160 MG TAB 1 tab by mouth twice daily 2 BACTRIM DS 800-160 MG TAB TRIMETHOPRIM-SULFAMETHOXAZOLE Inac tive LEVAQUIN 500 MG TABS 1 PO q day x 7 days LEVAQUIN 500 MG TABS 247246 LEVOFLOXACIN Inactive Advance Directives Directive Description Start Date PERMISSION TO SHARE Immunizations Vaccine Administration Date Value Standard Alf cription Seasonal influenza vaccine, injectable, containing preservative, for > 3 years old (Afluria, FluLaval, Fluzone, Fluvirin, Fluarix, Agriflu(>= 18 yo)) Fluzone (>3 yrs.) [[id number]] Influenza, seasonal, inject able Seasonal influenza vaccine, injectable, preservative free, for > 3 years old (Afluria, FluLaval, Fluzone, Fluvirin, Fluarix, Agriflu(>= 18 yo)) Fluzone preservative free (>3 yrs.) [[id number]] Influenza, seasonal, injectable, preservative free Seasonal influenza vaccine, injectable, containing preservative, for > 3 years old (Afluria, FluLaval, Fluzone, Fluvirin, Fluarix, Agriflu(>= 18 yo)) Fluzone (>3 yrs.) [[id number]] Influenza, seasonal, inject able Seasonal influenza vaccine, injectable, containing preservative, for > 3 years old (Afluria, FluLaval, Fluzone, Fluvirin, Fluarix, Agriflu(>= 18 yo)) Fluzone (>3 yrs.) [[id number]] Influenza, seasonal, inject able dT (Diphtheria and [...] mg/dL Chart Maintenance: Outside labs entered on [facility] - Hematology leukocyte count, blood 8.3 10*3/mm3 erythrocyte (RBC) count 5.2 10*6/mm3 hemoglobin, blood 14.2 g/dL hematocrit, blood 42.6 % mean corpuscular volume, RBC 82.4 fL mean corpuscular hemoglobin, RBC 27.5 pg red blood cell distribution width 12.9 % platelet count 316 10*3/mm3 Lab Report: CBC W/DIFF, Comp. Metabolic Panel, Thyroid Stimulating Hormo ... - Chemistry sodium, serum 140 mmol/L 990-339 4125/02/24 potassium, serum 4.3 mmol/L 3.5-5.2 chloride, serum [...] 4.3-6.0 Lab Report: T3, TOTAL, INSULIN - Money Counter ry triiodothyronine (T3), serum 78 ng/dL 76-181 [...] mg/dL Encounters Code Encounter Date Provider Facility CPT-13242 Level 3 Est. Patient 14:19:37 CDT Abdirahman Rios MD [facility] CPT-04473 Level 3 Est. Patient 14:11:58 CDT Kalpesh goins MD [facility] CPT-71686 Level 3 Est. Patient 16:50:00 CDT Michelle MERCADO [facility] CPT-70094 Level 3 Est. Patient 17:11:32 [facility] Brandie bates MD PhD [facility] CPT-01385 Level 3 Est. Patient 16:31:47 [facility] Shola MCGILL [facility] CPT-59715 Level 3 Est. Patient 17:51:10 [facility] Ahbinav Galvan MD [facility] CPT-22700 Level 4 Est. Patient 12:54:56 [facility] Kalpesh goisn MD [facility] CPT-56819 Level 4 Est. Patient 12:53:56 [facility] Kalpesh goins MD [facility] CPT-12021 Level 3 Est. Patient 17:56:58 CDT Shola Keesha Adriana [facility] CPT-11907 Level 3 Est. Patient 14:26:20 CDT Janak butcher [facility] CPT-99156 Level 3 Est. Patient 09:38:41 CDT Shola Thao Adriana [facility] CPT-39955 Level 3 Est. Patient 14:45:26 CDT Edilberto tiwari [facility] CPT-28655 Level 3 Est. Patient 10:51:33 CDT [facility] Level 3 Est. Patient 11:57:55 [facility] Shola Wright [facility] CPT-30234 Level 3 Est. Patient 09:53:33 [facility] Edilberto tiwari [facility] CPT-22607 Level 3 Est. Patient 14:42:54 [facility] Abhinav Galvan MD [facility] CPT-31886 Level 3 Est. Patient 15:10:02 CDT Janak butcher [facility] CPT-94049 Level 3 Est. Patient 15:20:20 CDT Theo dennis MD [facility] CPT-94414 Level 2 Est. Patient 14:08:57 CDT Kalpesh goins MD [facility] CPT-24378 Level 3 Est. Patient 13:56:19 CDT Abdirahman Rios MD [facility] CPT-09758 Level 3 Est. Patient 13:59:37 CDT Abdirahman Rios MD [facility] CPT-77702 Level 2 Est. Patient 14:44:59 CDT Kalpesh goins MD [facility] CPT-36884 Level 3 Est. Patient 06:06:23 CDT Edilberto tiwari DO [facility] CPT-88413 Level 3 Est. Patient 15:23:54 CDT Abdirahman Rios MD [facility] CPT-73205 Level 3 Est. Patient 15:43:49 CDT Abdirahman Rios MD [facility] CPT-46872 Level 3 Est. Patient 12:46:47 [facility] Abdirahman Rios MD [facility] CPT-43751 Level 3 Est. Patient 08:13:35 [facility] Abdirahman Rios MD [facility] CPT-25761 Level 2 Est. Patient 09:36:42 [facility] Abdirahman Rios MD [facility] CPT-27600 Level 3 Est. Patient 10:56:43 CDT Abdirahman Rios MD [facility] CPT-96362 Level 3 Est. Patient 18:24:52 CDT Abdirahman Rios MD [facility] CPT-54027 Level 3 Est. Patient 13:27:22 CDT Abdirahman Rios MD [facility] Procedures Code Procedure Name Date Entry Date Standard Desc ription CPT-OV Office Visit 15:34:48 CDT CPT-63727 Postop F/U Visit 14:50:12 CDT CPT-52336 Postop F/U Visit 14:41:10 CDT CPT-93175 Venipuncture Draw Fee 11:38:04 [facility] CPT-41695 Postop F/U Visit 19:02:59 [facility] CPT-08738 Postop F/U Visit 12:04:54 [facility] CPT-23653 Administration single or combination vac cine inc oral 15:56:43 CDT CPT-51617 Influenza split virus > age 3 15:56:43 CDT CPT-21298 Hand comp min 3V 14:25:19 CDT CPT-44076 Postop F/U Visit 21:40:51 CDT CPT-97326 Postop F/U Visit 10:58:43 CDT CPT-28462 Administration single or combination vac cine inc oral 12:33:54 [facility] CPT-30261 Influenza Preservative Free split virus >age 3 12:33:54 [facility] CPT-96104 Administration single or combination vac cine inc oral 09:30:51 CDT CPT-56797 Influenza split virus > age 3 09:30:51 CDT CPT-27899 Postop F/U Visit 15:14:53 CDT CPT-72438 Postop F/U Visit 13:50:14 CDT CPT-10491 Postop F/U Visit 13:34:52 CDT CPT-OV Office Visit 16:55:03 CDT CPT-22102 [place] of cervix w bx ECC 13:32:50 CDT 10/19 CPT-J1885 Toradol 60 mg (Ketorolac) 15:31:59 CDT 2011 CPT-J1885 Toradol 60 mg (Ketorolac) 15:23:54 CDT 2011 CPT-99595 Visit 11:34:37 [facility] CPT-30008 Visit 10:52:39 [facility] CPT-18141 Visit 10:12:02 [facility] CPT-57756 Visit 11:22:43 [facility] CPT-62020 Visit 11:24:12 [facility] CPT-19170 Visit 10:47:05 [facility] CPT-OV Office Visit 10:26:16 [facility] CPT-OV Office Visit 15:34:31 [facility] CPT-91079 Visit 10:42:08 [facility] CPT-17368 Visit 10:52:45 [facility] CPT-000 Give Appropriate Flu Vaccine 16:56:41 CDT 2 CPT-85224 Administration single or combination vac cine inc oral 10:33:21 CDT CPT-27520 Influenza split virus > age 3 10:33:21 CDT CPT-93702 Visit 13:23:09 CDT CPT-35923 Visit 18:24:52 CDT CPT-33211 Sono OB comp > 14 weeks 12:07:49 CDT 04/07
--- OUTSIDE RECORDS SUMMARY | 2020-01-18 17:24 | XMS REPORT | Clinical Summary ---
[...] by mouth twice a day 11/05 SULFAMETHOXAZOLE-TRIMETHOPRIM [id number] Longer Active Good Julian MD Active IBUPROFEN 800 MG TABS 1 tid prn IBUPROFEN 92389254330 Active Good Julian MD Active ENDOCET 10-325 MG TABS 1 q 6 hr prn OXYCODONE-A CETAMINOPHEN 61896420348 Active Shola MCGILL Active HYDROCODONE-ACETAMINOPHEN 7.5-325 MG TABS 1 four times a day as needed for pain HYDROCODONE-ACETAMINOPHEN 49975928526 No Longer Activ crystal Julian MD Active KEFLEX 500 MG CAP 1 tab po tid CEPHALEXIN 127454 21426 No Longer Active Hira Moser APRN Active IBUPROFEN 800 MG TAB 1 pill three times daily as needed for pain IBUPROFEN 13443101374 No Longer Active Kalpesh Dong MD Active PROMETHAZINE-CODEINE 6.25-10 MG/5ML SYRP 1 tsp every 6 hrs prn c ough PROMETHAZINE-CODEINE 46794173731 No Longer Active Kalpesh Carr Active ALPRAZOLAM 0.5 MG TABS 1 PO bid PRN ALPRAZOLAM 495605 95203 Active Shola MCGILL Active HYDROCODONE-ACETAMINOPHEN 5-325 MG TABS 1 tab by mouth every 6 hours as needed HYDROCODONE-ACETAMINOPHEN 94974546987 No Longer Activ e Shola MCGILL Active CEPHALEXIN 500 MG CAPS 1 PO bid x 7 days CEPHAL EXIN 13158514797 No Longer Active Shola MCGILL Active BACTRIM DS 800-160 MG TAB 1 tab by mouth twice daily 2 TRIMETHOPRIM-SULFAMETHOXAZOLE 27520036364 No Longer Active Kalpesh Dong MD Active HYDROCODONE-ACETAMINOPHEN 5-325 MG TABS 1 PO tid PRN pain 5 HYDROCODONE-ACETAMINOPHEN 19892207776 No Longer Active Abhinav Galvan MD Active IMPLANON 68 MG IMPL IMPLANTED IN LEFT ARM ETONO GESTREL 04433614946 No Longer Active 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 NET TECHNICAL ARCHITECT Active AMOXICILLIN 500 MG TABS 2 tabs PO bid x 10 d AM OXICILLIN 77186017170 No Longer Active Kalpesh Dong MD Active LEVAQUIN 500 MG TABS 1 PO q day x 7 days LEVOFL OXACIN 72274240197 No Longer Active Shola MCGILL Active PROAIR HFA 108 (90 BASE) MCG/ACT AERS 2 puff q 4-6 hrs PRN ALBUTEROL SULFATE 14753641678 Active Shola MCGILL Acti ve FIORICET 50-325-40 MG TABS 2 PO q 8 hrs PRN FOSTER [id number] 67259184286 Active Abdirahman Rios MD Active AMITRIPTYLINE HCL 25 MG TAB 1 tab by mouth daily 60 minutes before bedtime AMITRIPTYLINE HCL 24957105126 No Longer Active Shola MCGILL Active LORTAB 5 5-500 MG TABS 1/2 to 1 tablet by mouth go ry 6 hours as needed for pain HYDROCODONE-ACETAMINOPHEN 45984763185 No Longer Active Shola MCGILL Active CEPHALEXIN 500 MG TABS Take one by mouth four times daily, morning, noon, early evening and bedtime. CEPHALEXIN 58957233951 No Long er Active Hira Moser NET TECHNICAL ARCHITECT Active TYLENOL/CODEINE #3 300-30 MG TAB 1-2 po q6hr PRN Pain ACETAMINOPHEN-CODEINE 07755364036 No Longer Active Edilberto Marino DO Active PRISTIQ 50 MG [id number] 1 po qd DESVENLAFAXI NE SUCCINATE 26332905699 No Longer Active Edilberto Marino DO Active PENICILLIN V POTASSIUM 500 MG TAB 1 four times a day 2 PENICILLIN V POTASSIUM 45520217857 No Longer Active Edilberto Marino DO Active DOXYCYCLINE HYCLATE 100 MG CAPS Take one (1) tablet by mouth twice a day DOXYCYCLINE HYCLATE 41237991143 No Longer Active Ronnie Galvan MD Active HYDROCODONE-ACETAMINOPHEN 5-325 MG TABS 1 po q 6hr PRN Pain 2011 HYDROCODONE-ACETAMINOPHEN 51707362526 No Longer Active Patri joan Perez RN Active BACTRIM DS 800-160 MG TAB 1 tab by mouth twice daily 2 TRIMETHOPRIM-SULFAMETHOXAZOLE 25946417436 No Longer Active Kalpesh Dong MD Active LORTAB 5 5-500 MG TABS 1/2 to 1 tablet by mouth go ry 4 hours as needed for pain HYDROCODONE-ACETAMINOPHEN 38638785567 No Longer Active Kalpesh Dong MD Active GENERESS FE 0.8-25 MG-MCG CHEW Take one by mouth daily NORETHIN-ETH ESTRADIOL-FE 85540294276 No Longer Active Kalpesh Dong MD Active HYDROCODONE-ACETAMINOPHEN 7.5-500 MG TABS 1-2 every 4 hours as needed HYDROCODONE-ACETAMINOPHEN 42767025354 No Longer Activ e Kalpesh Dong MD Active FERROUS SULFATE 325 (65 FE) MG TABS 1 tablet by mouth twice yung y FERROUS SULFATE 49988608306 No Longer Active Kalpesh Dong MD Active IBUPROFEN 600 MG TAB 1 po q6-8hr PRN IBUPROFEN 11129507117 No Longer Active Kalpesh Dong MD Active SPIRONOLACTONE 25 MG TAB 1 tablet by mouth daily 01/22 SPIRONOLACTONE 72561813276 No Longer Active Kalpesh Dong MD Acti ve HYDROCODONE-ACETAMINOPHEN 7.5-325 MG TABS 1 po QID PRN Pain 2011 HYDROCODONE-ACETAMINOPHEN 06994017704 No Longer Active Kalpesh Dong MD Active CLINDAMYCIN HCL 300 MG CAPS 1 po q6hr x 7 days CLINDAMYCIN HCL 05143151597 No Longer Active Edilberto Marino DO Active PREDNISONE 20 MG TAB 2 tabs daily for 4 days, 1 t ab daily for 4 days, 1/2 tab daily for 4 days PREDNISONE 85256790029 No Longer Active Edilberto Marino DO Active PERCOCET 5-325 MG TABS 1 tablet by mouth every 6 hours as ne eded for pain OXYCODONE-ACETAMINOPHEN 10578463576 No Longer Active Abdirahman Rios MD Active VITAMINS TABS Take one by mouth daily MV & MIN W/FE-FA TABS 91781926749 No Longer Active Abdirahman Rios MD Active LUIS 3-0.02 MG TABS 1 tablet by mouth daily as directed DROSPIRENONE-ETHINYL ESTRADIOL 10672948291 No Longer Active Abdirahman Rios MD Active LORATADINE 10 MG TABS 1 tablet by mouth daily L ORATADINE 52489687593 No Longer Active Kalpesh Dong MD Active HYDROCODONE-ACETAMINOPHEN 5-325 MG TABS 1 po q 6hr PRN Pain 2010 HYDROCODONE-ACETAMINOPHEN 10032065612 No Longer Active Edilberto Marino DO Active BACTRIM DS 800-160 MG TAB 1 tab by mouth twice daily 2 TRIMETHOPRIM-SULFAMETHOXAZOLE 60231172595 No Longer Active Abdirahman Rios MD Active 28-0.8 MG TABS Take one by mouth daily 09/20 VIT-FE FUMARATE-FA 73567461332 No Longer Active Abdirahman Rios MD Active CIPRO 500 MG TAB 1 tablet by mouth twice daily CIPROFLOXACIN HCL 76093168076 No Longer Active Abdirahman Rios MD Active BENADRYL 25 MG CAP 1 po q8hr PRN Congestion DIPHENHYDRAMINE HCL 22004183226 No Longer Active Abdirahman Rios MD Active ZOLOFT 50 MG TAB 1 po qd SERTRALINE HCL 575727 95087 No Longer Active Abdirahman Rios MD Active AMOXICILLIN 875 MG TABS 1 tab by mouth twice daily 201 08/09/13 AMOXICILLIN 41691885713 No Longer Active Abdirahman Rios MD Activ e AMOXICILLIN 875 MG TABS 1 tab by mouth twice daily 201 07/19/27 AMOXICILLIN 21364613412 No Longer Active Abdirahman Rios MD Activ e BACTRIM DS 800-160 MG TAB 2 tab by mouth twice daily 2 TRIMETHOPRIM-SULFAMETHOXAZOLE 48720822957 No Longer Active Abdirahman Rios MD Active KEFLEX 500 MG CAP 1 po tid x 10 days CEPHALEXIN 48159897328 No Longer Active Abdirahman Rios MD Active AMOXICILLIN 875 MG TABS 1 tab by mouth twice daily 201 07/18/07 AMOXICILLIN 94350400269 No Longer Active Abdirahman Rios MD Activ e BACTRIM DS 800-160 MG TAB 2 tab by mouth twice daily 2 BACTRIM DS 800-160 MG TAB TRIMETHOPRIM-SULFAMETHOXAZOLE Inactive ZOLOFT 50 MG TAB 1 po qd ZOLOFT 50 MG TAB 3129 41 SERTRALINE HCL Inactive BENADRYL 25 MG CAP 1 po q8hr PRN Congestion BENADRYL 25 MG CAP 4093285 DIPHENHYDRAMINE HCL Inactive 28-0.8 MG TABS Take one by mouth daily 09/20 28-0.8 MG TABS VIT-FE FUMARATE-FA Inactive HYDROCODONE-ACETAMINOPHEN 5-325 MG TABS 1 po q 6hr PRN Pain 2010 HYDROCODONE-ACETAMINOPHEN 5-325 MG TABS 873148 HYDROCODONE-ACETAMINOPHEN Inactive LORATADINE 10 MG TABS 1 tablet by mouth daily LORATADINE 10 MG TABS 229332 LORATADINE Inactive LUIS 3-0.02 MG TABS 1 tablet by mouth daily as directed LUIS 3-0.02 MG TABS DROSPIRENONE-ETHINYL ESTRADIOL Inactive VITAMINS TABS Take one by mouth daily VITAMINS TABS MV & MIN W/FE-FA TABS Inactive PERCOCET 5-325 MG TABS 1 tablet by mouth every 6 hours as ne eded for pain PERCOCET 5-325 MG TABS 2923574 OXYCODONE-ACETAMIN OPHEN Inactive PREDNISONE 20 MG TAB 2 tabs daily for 4 days, 1 t ab daily for 4 days, 1/2 tab daily for 4 days PREDNISONE 20 MG TAB 489960 PREDNISON E Inactive CLINDAMYCIN HCL 300 MG CAPS 1 po q6hr x 7 days CLINDAMYCIN HCL 300 MG CAPS 836259 CLINDAMYCIN HCL Inactive HYDROCODONE-ACETAMINOPHEN 7.5-325 MG TABS 1 po QID PRN Pain 2011 HYDROCODONE-ACETAMINOPHEN 7.5-325 MG TABS 851267 HYDROCODONE-ACETAMINOPHEN Inactive SPIRONOLACTONE 25 MG TAB 1 tablet by mouth daily 01/22 SPIRONOLACTONE 25 MG TAB 266874 SPIRONOLACTONE Inactive IBUPROFEN 600 MG TAB 1 po q6-8hr PRN IBUPROFEN 600 MG TAB 426627 IBUPROFEN Inactive FERROUS SULFATE 325 (65 FE) MG TABS 1 tablet by mouth twice yung y FERROUS SULFATE 325 (65 FE) MG TABS 657702 FERROUS SULF ATE Inactive HYDROCODONE-ACETAMINOPHEN 7.5-500 MG TABS 1-2 every 4 hours as needed HYDROCODONE-ACETAMINOPHEN 7.5-500 MG TABS 667348 HYDROCODONE-ACETAMINOPHEN Inactive GENERESS FE 0.8-25 MG-MCG CHEW [...] PRN Pain 2011 HYDROCODONE-ACETAMINOPHEN 5-325 MG TABS 834211 HYDROCODONE-ACETAMINOPHEN Inactive DOXYCYCLINE HYCLATE 100 MG CAPS Take one (1) tablet by mouth twice a day DOXYCYCLINE HYCLATE 100 MG CAPS 694762 DOXYCYCLINE HYCLATE Inactive PENICILLIN V POTASSIUM 500 MG TAB 1 four times a day 2 PENICILLIN V POTASSIUM 500 MG TAB 523130 PENICILLIN V POTASSIUM [place] ctive PRISTIQ 50 MG [id number] 1 po qd PRISTIQ 50 MG [id number] DESVENLAFAXINE SUCCINATE Inactive TYLENOL/CODEINE #3 300-30 MG TAB 1-2 po q6hr PRN Pain TYLENOL/CODEINE #3 300-30 MG TAB 108900 ACETAMINOPHEN-CODEINE Inact krishna CEPHALEXIN 500 MG TABS Take one by mouth four times daily, morning, noon, early evening and bedtime. CEPHALEXIN 500 MG TABS 834583 CEPHALEXIN Inactive LORTAB 5 5-500 MG TABS 1/2 to 1 tablet by mouth go ry 6 hours as needed for pain LORTAB 5 5-500 MG TABS HYDROCODONE-A CETAMINOPHEN Inactive AMITRIPTYLINE HCL 25 MG TAB 1 tab by mouth daily 60 minutes before bedtime AMITRIPTYLINE HCL 25 MG TAB 141754 AMITRIPTYLINE HCL Inactive AMOXICILLIN 500 MG TABS 2 tabs PO bid x 10 d 7 AMOXICILLIN 500 MG TABS 762109 AMOXICILLIN Inactive IMPLANON 68 MG IMPL IMPLANTED IN LEFT ARM IMPLANON 68 MG IMPL ETONOGESTREL Inactive HYDROCODONE-ACETAMINOPHEN 5-325 MG TABS 1 PO tid PRN pain 5 HYDROCODONE-ACETAMINOPHEN 5-325 MG TABS 087794 HYDROCODONE-ACETAMIN OPHEN Inactive BACTRIM DS 800-160 MG TAB 1 tab by mouth twice daily 2 BACTRIM DS 800-160 MG TAB TRIMETHOPRIM-SULFAMETHOXAZOLE Inac tive CEPHALEXIN 500 MG CAPS 1 PO bid x 7 days CEPHALEXIN 500 MG CAPS 512333 CEPHALEXIN Inactive HYDROCODONE-ACETAMINOPHEN 5-325 MG TABS 1 tab by mouth every 6 hours as needed HYDROCODONE-ACETAMINOPHEN 5-325 MG TABS 738984 HYDROCODONE-ACETAMINOPHEN Inactive PROMETHAZINE-CODEINE 6.25-10 MG/5ML SYRP 1 tsp every 6 hrs prn c ough PROMETHAZINE-CODEINE 6.25-10 MG/5ML SYRP 529203 PROMETH AZINE-CODEINE Inactive IBUPROFEN 800 MG TAB 1 pill three times daily as needed for pain IBUPROFEN 800 MG TAB 313712 IBUPROFEN Inactive KEFLEX 500 MG CAP 1 tab po tid KEFLEX 500 MG CAP 653983 CEPHALEXIN Inactive HYDROCODONE-ACETAMINOPHEN 7.5-325 MG TABS 1 four times a day as needed for pain HYDROCODONE-ACETAMINOPHEN 7.5-325 MG TABS 215992 HYDROCODONE-ACETAMINOPHEN Inactive BACTRIM DS 800-160 MG TABS by mouth twice a day 11/05 BACTRIM DS 800-160 MG TABS SULFAMETHOXAZOLE-TRIMETHOPRIM Inactive AMOXICILLIN 875 MG TABS 1 tab by mouth twice daily 201 07/18/07 AMOXICILLIN 875 MG TABS 000760 AMOXICILLIN Inactive KEFLEX 500 MG CAP 1 po tid x 10 days KEFLEX 500 MG CAP 736022 CEPHALEXIN Inactive AMOXICILLIN 875 MG TABS 1 tab by mouth twice daily 201 07/19/27 AMOXICILLIN 875 MG TABS 353809 AMOXICILLIN Inactive AMOXICILLIN 875 MG TABS 1 tab by mouth twice daily 08/09/13 AMOXICILLIN 875 MG TABS 296066 AMOXICILLIN Inactive CIPRO 500 MG TAB 1 tablet by mouth twice daily CIPRO 500 MG TAB 309629 CIPROFLOXACIN HCL Inactive BACTRIM DS 800-160 MG TAB 1 tab by mouth twice daily 2 BACTRIM DS 800-160 MG TAB TRIMETHOPRIM-SULFAMETHOXAZOLE Inac tive LEVAQUIN 500 MG TABS 1 PO q day x 7 days LEVAQUIN 500 MG TABS 111422 LEVOFLOXACIN Inactive Advance Directives Directive Description Start Date PERMISSION TO SHARE Immunizations Vaccine Administration Date Value Standard Alf cription Seasonal influenza vaccine, injectable, containing preservative, for > 3 years old (Afluria, FluLaval, Fluzone, Fluvirin, Fluarix, Agriflu(>= 18 yo)) Fluzone (>3 yrs.) [[id number]] Influenza, seasonal, inject able Seasonal influenza vaccine, injectable, preservative free, for > 3 years old (Afluria, FluLaval, Fluzone, Fluvirin, Fluarix, Agriflu(>= 18 yo)) Fluzone preservative free (>3 yrs.) [[id number]] Influenza, seasonal, injectable, preservative free Seasonal influenza vaccine, injectable, containing preservative, for > 3 years old (Afluria, FluLaval, Fluzone, Fluvirin, Fluarix, Agriflu(>= 18 yo)) Fluzone (>3 yrs.) [[id number]] Influenza, seasonal, inject able Seasonal influenza vaccine, injectable, containing preservative, for > 3 years old (Afluria, FluLaval, Fluzone, Fluvirin, Fluarix, Agriflu(>= 18 yo)) Fluzone (>3 yrs.) [[id number]] Influenza, seasonal, inject able dT (Diphtheria and [...] mg/dL Chart Maintenance: Outside labs entered on [employer] - Hematology leukocyte count, blood 8.3 10*3/mm3 erythrocyte (RBC) count 5.2 10*6/mm3 hemoglobin, blood 14.2 g/dL hematocrit, blood 42.6 % mean corpuscular volume, RBC 82.4 fL mean corpuscular hemoglobin, RBC 27.5 pg red blood cell distribution width 12.9 % platelet count 316 10*3/mm3 Lab Report: CBC W/DIFF, Comp. Metabolic Panel, Thyroid Stimulating Hormo ... - Chemistry sodium, serum 140 mmol/L [phone]/02/24 potassium, serum 4.3 mmol/L 3.5-5.2 chloride, serum [...] 4.3-6.0 Lab Report: T3, TOTAL, INSULIN - [employer] ry triiodothyronine, serum 78 ng/dL 76-181 Lab [...] mg/dL Encounters Code Encounter Date Provider Facility CPT-02053 Level 3 Est. Patient 14:11:58 CDT Kalpesh goins MD [facility] CPT-04493 Level 3 Est. Patient 16:50:00 CDT Michelle MERCADO [facility] CPT-70911 Level 3 Est. Patient 17:11:32 TOOL SPECIALIST Brandie bates MD PhD [facility] CPT-13371 Level 3 Est. Patient 16:31:47 TOOL SPECIALIST Shola MCGILL [facility] CPT-51294 Level 3 Est. Patient 17:51:10 TOOL SPECIALIST Abhinav Galvan MD [facility] CPT-97374 Level 4 Est. Patient 12:54:56 TOOL SPECIALIST Kalpesh goins MD [facility] CPT-27120 Level 4 Est. Patient 12:53:56 TOOL SPECIALIST Kalpesh goins MD [facility] CPT-51448 Level 3 Est. Patient 17:56:58 CDT Shola MCGILL [facility] CPT-69036 Level 3 Est. Patient 14:26:20 CDT Janak butcher [facility] CPT-99243 Level 3 Est. Patient 09:38:41 CDT Shola Wright [facility] CPT-50142 Level 3 Est. Patient 14:45:26 CDT Edilberto tiwari [facility] CPT-77278 Level 3 Est. Patient 10:51:33 CDT Hria muniz [facility] CPT-74932 Level 3 Est. Patient 11:57:55 TOOL SPECIALIST Shola Thao Adriana [facility] CPT-13685 Level 3 Est. Patient 09:53:33 TOOL SPECIALIST Edilberto tiwari [facility] CPT-10586 Level 3 Est. Patient 14:42:54 TOOL SPECIALIST Abhinav Galvan MD [facility] CPT-23219 Level 3 Est. Patient 15:10:02 CDT Janak butcher [facility] CPT-86567 Level 3 Est. Patient 15:20:20 CDT Theo dennis MD [facility] CPT-54065 Level 2 Est. Patient 14:08:57 CDT Kalpesh goins MD [facility] CPT-91499 Level 3 Est. Patient 13:56:19 CDT Abdirahman Riso MD [facility] CPT-46369 Level 3 Est. Patient 13:59:37 CDT Abdirahman Rios MD [facility] CPT-70547 Level 2 Est. Patient 14:44:59 CDT Kalpesh goins MD [facility]-61409 Level 3 Est. Patient 06:06:23 CDT Edilberto tiwari [facility] CPT-37295 Level 3 Est. Patient 15:23:54 CDT Abdirahman Rios MD [facility] CPT-63460 Level 3 Est. Patient 15:43:49 CDT Abdirahman Rios MD [facility] CPT-07740 Level 3 Est. Patient 12:46:47 TOOL SPECIALIST Abdirahman Rios MD [facility] CPT-56132 Level 3 Est. Patient 08:13:35 TOOL SPECIALIST Abdirahman Rios MD [facility] CPT-67006 Level 2 Est. Patient 09:36:42 TOOL SPECIALIST Abdirahman Rios MD [facility] CPT-64980 Level 3 Est. Patient 10:56:43 CDT Abdirahman Rios MD [facility] CPT-68920 Level 3 Est. Patient 18:24:52 CDT Abdirahman Rios MD [facility] CPT-33048 Level 3 Est. Patient 13:27:22 CDT Abdirahman Rios MD [facility] Procedures Code Procedure Name Date Entry Date Standard Desc ription CPT-OV Office Visit 15:34:48 CDT CPT-68365 Postop F/U Visit 14:50:12 CDT CPT-52485 Postop F/U Visit 14:41:10 CDT CPT-43762 Venipuncture Draw Fee 11:38:04 TOOL SPECIALIST CPT-61287 Postop F/U Visit 19:02:59 TOOL SPECIALIST CPT-64731 Postop F/U Visit 12:04:54 TOOL SPECIALIST CPT-60719 Administration single or combination vac cine inc oral 15:56:43 CDT CPT-58802 Influenza split virus > age 3 15:56:43 CDT CPT-15825 Hand comp min 3V 14:25:19 CDT CPT-87642 Postop F/U Visit 21:40:51 CDT CPT-18860 Postop F/U Visit 10:58:43 CDT CPT-81037 Administration single or combination vac cine inc oral 12:33:54 TOOL SPECIALIST CPT-92526 Influenza Preservative Free split virus >age 3 12:33:54 TOOL SPECIALIST CPT-70148 Administration single or combination vac cine inc oral 09:30:51 CDT CPT-75169 Influenza split virus > age 3 09:30:51 CDT CPT-12381 Postop F/U Visit 15:14:53 CDT CPT-30555 Postop F/U Visit 13:50:14 CDT CPT-64180 Postop F/U Visit 13:34:52 CDT CPT-OV Office Visit 16:55:03 CDT CPT-80108 [place] cerv[place] w bx ECC 13:32:50 CDT 10/19 CPT-J1885 Toradol 60 mg (Ketorolac) 15:31:59 CDT 2011 CPT-J1885 Toradol 60 mg (Ketorolac) 15:23:54 CDT 2011 CPT-05482 Visit 11:34:37 TOOL SPECIALIST CPT-78081 Visit 10:52:39 TOOL SPECIALIST CPT-40513 Visit 10:12:02 TOOL SPECIALIST CPT-46408 Visit 11:22:43 TOOL SPECIALIST CPT-86080 Visit 11:24:12 TOOL SPECIALIST CPT-92448 Visit 10:47:05 TOOL SPECIALIST CPT-OV Office Visit 10:26:16 TOOL SPECIALIST CPT-OV Office Visit 15:34:31 TOOL SPECIALIST CPT-81076 Visit 10:42:08 TOOL SPECIALIST CPT-70346 Visit 10:52:45 TOOL SPECIALIST CPT-000 Give Appropriate Flu Vaccine 16:56:41 CDT 2 CPT-10160 Administration single or combination vac cine inc oral 10:33:21 CDT CPT-66523 Influenza split virus > age 3 10:33:21 CDT CPT-81444 Visit 13:23:09 CDT CPT-94220 Visit 18:24:52 CDT CPT-85525 Sono OB comp > 14 weeks 12:07:49 CDT 04/07
--- OUTSIDE RECORDS SUMMARY | 2020-01-18 17:25 | XMS REPORT | Clinical Summary ---
[...] time daily to affected area LIDOCAINE (ANORECTAL) [id number] Active Shola MCGILL Active PERCOCET 7.5-325 MG TABS 1 PO q 8 hrs PRN pain OXYCODONE-ACETAMINOPHEN 89033604133 Active Shola MCGILL Active CLINDAMYCIN HCL 300 MG CAPS 1 po QID x 7 days CLINDAMYCIN HCL 69151349354 No Longer Active Abdirahman Rios MD Activ e HYDROCODONE-ACETAMINOPHEN 7.5-325 MG TABS 1 by mouth e very 6 hours as needed for pain HYDROCODONE-ACETAMINOPHEN 81320842138 Active Shola MCGILL Active BACTRIM DS 800-160 MG TABS 1 po BID x 7 days 5 SULFAMETHOXAZOLE-TRIMETHOPRIM 78593785059 No Longer Active Abdirahman Rios MD Active ENDOCET 10-325 MG TABS 1 q 6 hr prn OXYCODONE-ACETAMINOPHEN 29466915244 No Longer Active Abdirahman Rios MD Active IBUPROFEN 800 MG TABS 1 tid prn IBUPROFEN 752407 78234 No Longer Active Abdirahman Rios MD Active BACTRIM DS 800-160 MG TABS by mouth twice a day 11/05 SULFAMETHOXAZOLE-TRIMETHOPRIM 44419389241 No Longer Active Good Julian MD Active HYDROCODONE-ACETAMINOPHEN 7.5-325 MG TABS 1 four times a day as needed for pain HYDROCODONE-ACETAMINOPHEN 27208936976 No Longer Activ e Good Julian MD Active KEFLEX 500 MG CAP 1 tab po tid CEPHALEXIN 120135 84127 No Longer Active Jillina Frajanee [employer]IST Active IBUPROFEN 800 MG TAB 1 pill three times daily as needed for pain IBUPROFEN 67138245995 No Longer Active Kalpesh Dong MD Active PROMETHAZINE-CODEINE 6.25-10 MG/5ML SYRP 1 tsp every 6 hrs prn c ough PROMETHAZINE-CODEINE 69507631724 No Longer Active Kalpesh Carr Active ALPRAZOLAM 0.5 MG TABS 1 PO bid PRN ALPRAZOLAM 214183 67726 Active Shola MCGILL Active HYDROCODONE-ACETAMINOPHEN 5-325 MG TABS 1 tab by mouth every 6 hours as needed HYDROCODONE-ACETAMINOPHEN 07966844652 No Longer Activ e Shola MCGILL Active CEPHALEXIN 500 MG CAPS 1 PO bid x 7 days CEPHAL EXIN 18141945242 No Longer Active Shola MCGILL Active BACTRIM DS 800-160 MG TAB 1 tab by mouth twice daily 2 TRIMETHOPRIM-SULFAMETHOXAZOLE 11473293150 No Longer Active Kalpesh Dong MD Active HYDROCODONE-ACETAMINOPHEN 5-325 MG TABS 1 PO tid PRN pain 5 HYDROCODONE-ACETAMINOPHEN 60092744592 No Longer Active Abhinav Galvan MD Active IMPLANON 68 MG IMPL IMPLANTED IN LEFT ARM ETONO GESTREL 73572539858 No Longer Active Hira Moser APRN Active AMOXICILLIN 500 MG TABS 2 tabs PO bid x 10 d AM OXICILLIN 68601291007 No Longer Active Kalpesh Dong MD Active LEVAQUIN 500 MG TABS 1 PO q day x 7 days LEVOFL OXACIN 59624832947 No Longer Active Shola MCGILL Active PROAIR HFA 108 (90 BASE) MCG/ACT AERS 2 puff q 4-6 hrs PRN ALBUTEROL SULFATE 67465915312 Active Shola MCGILL Acti ve FIORICET 50-325-40 MG TABS 2 PO q 8 hrs PRN FOSTER [id number] Active Shola MCGILL Active AMITRIPTYLINE HCL 25 MG TAB 1 tab by mouth daily 60 minutes before bedtime AMITRIPTYLINE HCL 29041249695 No Longer Active Shola MCGILL Active LORTAB 5 5-500 MG TABS 1/2 to 1 tablet by mouth go ry 6 hours as needed for pain HYDROCODONE-ACETAMINOPHEN 53790281547 No Longer Active Shola MCGILL Active CEPHALEXIN 500 MG TABS Take one by mouth four times daily, morning, noon, early evening and bedtime. CEPHALEXIN 62891979577 No Long er Active Hira Moser APRN Active TYLENOL/CODEINE #3 300-30 MG TAB 1-2 po q6hr PRN Pain ACETAMINOPHEN-CODEINE 09972419334 No Longer Active Edilberto Marino DO Active PRISTIQ 50 MG [id number]-ZBD 1 po qd DESVENLAFAXI NE SUCCINATE 73248629296 No Longer Active Edilberto Marino DO Active PENICILLIN V POTASSIUM 500 MG TAB 1 four times a day 2 PENICILLIN V POTASSIUM 79178213403 No Longer Active Edilberto Marino DO Active DOXYCYCLINE HYCLATE 100 MG CAPS Take one (1) tablet by mouth twice a day DOXYCYCLINE HYCLATE 75700242170 No Longer Active Ronnie Galvan MD Active HYDROCODONE-ACETAMINOPHEN 5-325 MG TABS 1 po q 6hr PRN Pain 2011 HYDROCODONE-ACETAMINOPHEN 19697136564 No Longer Active Jerson Perez RN Active BACTRIM DS 800-160 MG TAB 1 tab by mouth twice daily 2 TRIMETHOPRIM-SULFAMETHOXAZOLE 52830162218 No Longer Active Kalpesh Dong MD Active LORTAB 5 5-500 MG TABS 1/2 to 1 tablet by mouth go ry 4 hours as needed for pain HYDROCODONE-ACETAMINOPHEN 84976330862 No Longer Active Kalpesh Dong MD Active GENERESS FE 0.8-25 MG-MCG CHEW Take one by mouth daily NORETHIN-ETH ESTRADIOL-FE 75946450272 No Longer Active Kalpesh Dong MD Active HYDROCODONE-ACETAMINOPHEN 7.5-500 MG TABS 1-2 every 4 hours as needed HYDROCODONE-ACETAMINOPHEN 11838283737 No Longer Activ e Kalpesh Dong MD Active FERROUS SULFATE 325 (65 FE) MG TABS 1 tablet by mouth twice yung y FERROUS SULFATE 38583735678 No Longer Active Kalpesh Dong MD Active IBUPROFEN 600 MG TAB 1 po q6-8hr PRN IBUPROFEN 17949016563 No Longer Active Kalpesh Dong MD Active SPIRONOLACTONE 25 MG TAB 1 tablet by mouth daily 01/22 SPIRONOLACTONE 21550491073 No Longer Active Kalpesh Dong MD Acti ve HYDROCODONE-ACETAMINOPHEN 7.5-325 MG TABS 1 po QID PRN Pain 2011 HYDROCODONE-ACETAMINOPHEN 23697325918 No Longer Active Kalpesh Dong MD Active CLINDAMYCIN HCL 300 MG CAPS 1 po q6hr x 7 days CLINDAMYCIN HCL 32541050339 No Longer Active Edilberto Marino DO Active PREDNISONE 20 MG TAB 2 tabs daily for 4 days, 1 t ab daily for 4 days, 1/2 tab daily for 4 days PREDNISONE 57839227550 No Longer Active Edilberto Marino DO Active PERCOCET 5-325 MG TABS 1 tablet by mouth every 6 hours as ne eded for pain OXYCODONE-ACETAMINOPHEN 73841347390 No Longer Active Abdirahman Rios MD Active VITAMINS TABS Take one by mouth daily MV & MIN W/FE-FA TABS 75565927653 No Longer Active Abdirahman Rios MD Active LUIS 3-0.02 MG TABS 1 tablet by mouth daily as directed DROSPIRENONE-ETHINYL ESTRADIOL 82943861561 No Longer Active Abdirahman Rios MD Active LORATADINE 10 MG TABS 1 tablet by mouth daily L ORATADINE 22412426508 No Longer Active Kalpesh Dong MD Active HYDROCODONE-ACETAMINOPHEN 5-325 MG TABS 1 po q 6hr PRN Pain 2010 HYDROCODONE-ACETAMINOPHEN 09358728005 No Longer Active Edilberto Marino DO Active BACTRIM DS 800-160 MG TAB 1 tab by mouth twice daily 2 TRIMETHOPRIM-SULFAMETHOXAZOLE 14453055079 No Longer Active Abdirahman Rios MD Active 28-0.8 MG TABS Take one by mouth daily 09/20 VIT-FE FUMARATE-FA 19979876361 No Longer Active Abdirahman Rios MD Active CIPRO 500 MG TAB 1 tablet by mouth twice daily CIPROFLOXACIN HCL 36340131702 No Longer Active Abdirahman Rios MD Active BENADRYL 25 MG CAP 1 po q8hr PRN Congestion DIPHENHYDRAMINE HCL 53998949729 No Longer Active Abdirahman Rios MD Active ZOLOFT 50 MG TAB 1 po qd SERTRALINE HCL 386058 09763 No Longer Active Abdirahman Rios MD Active AMOXICILLIN 875 MG TABS 1 tab by mouth twice daily 201 08/09/13 AMOXICILLIN 00470949468 No Longer Active Abdirahman Rios MD Activ e AMOXICILLIN 875 MG TABS 1 tab by mouth twice daily 201 07/19/27 AMOXICILLIN 38294515956 No Longer Active Adbirahman Rios MD Activ e BACTRIM DS 800-160 MG TAB 2 tab by mouth twice daily 2 TRIMETHOPRIM-SULFAMETHOXAZOLE 32904066187 No Longer Active Abdirahman Rios MD Active KEFLEX 500 MG CAP 1 po tid x 10 days CEPHALEXIN 55489168679 No Longer Active Abdirahman Rios MD Active AMOXICILLIN 875 MG TABS 1 tab by mouth twice daily 201 07/18/07 AMOXICILLIN 28819301126 No Longer Active Abdirahman Rios MD Activ e BACTRIM DS 800-160 MG TAB 2 tab by mouth twice daily 2 BACTRIM DS 800-160 MG TAB TRIMETHOPRIM-SULFAMETHOXAZOLE Inactive ZOLOFT 50 MG TAB 1 po qd ZOLOFT 50 MG TAB 3129 41 SERTRALINE HCL Inactive BENADRYL 25 MG CAP 1 po q8hr PRN Congestion BENADRYL 25 MG CAP 9733600 DIPHENHYDRAMINE HCL Inactive 28-0.8 MG TABS Take one by mouth daily 09/20 28-0.8 MG TABS VIT-FE FUMARATE-FA Inactive HYDROCODONE-ACETAMINOPHEN 5-325 MG TABS 1 po q 6hr PRN Pain 2010 HYDROCODONE-ACETAMINOPHEN 5-325 MG TABS 249075 HYDROCODONE-ACETAMINOPHEN Inactive LORATADINE 10 MG TABS 1 tablet by mouth daily LORATADINE 10 MG TABS 215232 LORATADINE Inactive LUIS 3-0.02 MG TABS 1 tablet by mouth daily as directed LUIS 3-0.02 MG TABS DROSPIRENONE-ETHINYL ESTRADIOL Inactive VITAMINS TABS Take one by mouth daily VITAMINS TABS MV & MIN W/FE-FA TABS Inactive PERCOCET 5-325 MG TABS 1 tablet by mouth every 6 hours as ne eded for pain PERCOCET 5-325 MG TABS 5434573 OXYCODONE-ACETAMIN OPHEN Inactive PREDNISONE 20 MG TAB 2 tabs daily for 4 days, 1 t ab daily for 4 days, 1/2 tab daily for 4 days PREDNISONE 20 MG TAB 584034 PREDNISON E Inactive CLINDAMYCIN HCL 300 MG CAPS 1 po q6hr x 7 days CLINDAMYCIN HCL 300 MG CAPS 768438 CLINDAMYCIN HCL Inactive HYDROCODONE-ACETAMINOPHEN 7.5-325 MG TABS 1 po QID PRN Pain 2011 HYDROCODONE-ACETAMINOPHEN 7.5-325 MG TABS 937106 HYDROCODONE-ACETAMINOPHEN Inactive SPIRONOLACTONE 25 MG TAB 1 tablet by mouth daily 01/22 SPIRONOLACTONE 25 MG TAB 541335 SPIRONOLACTONE Inactive IBUPROFEN 600 MG TAB 1 po q6-8hr PRN IBUPROFEN 600 MG TAB 295449 IBUPROFEN Inactive FERROUS SULFATE 325 (65 FE) MG TABS 1 tablet by mouth twice yung y FERROUS SULFATE 325 (65 FE) MG TABS 096847 FERROUS SULF ATE Inactive HYDROCODONE-ACETAMINOPHEN 7.5-500 MG [...] PRN Pain 2011 HYDROCODONE-ACETAMINOPHEN 5-325 MG TABS 861243 HYDROCODONE-ACETAMINOPHEN Inactive DOXYCYCLINE HYCLATE 100 MG CAPS Take one (1) tablet by mouth twice a day DOXYCYCLINE HYCLATE 100 MG CAPS 346945 DOXYCYCLINE HYCLATE Inactive PENICILLIN V POTASSIUM 500 MG TAB 1 four times a day 2 PENICILLIN V POTASSIUM 500 MG TAB 814475 PENICILLIN V POTASSIUM Siri ctive PRISTIQ 50 MG [id number] 1 po qd PRISTIQ 50 MG [id number] DESVENLAFAXINE SUCCINATE Inactive TYLENOL/CODEINE #3 300-30 MG TAB 1-2 po q6hr PRN Pain TYLENOL/CODEINE #3 300-30 MG TAB 702898 ACETAMINOPHEN-CODEINE Inact krishna CEPHALEXIN 500 MG TABS Take one by mouth four times daily, morning, noon, early evening and bedtime. CEPHALEXIN 500 MG TABS 395822 CEPHALEXIN Inactive LORTAB 5 5-500 MG TABS 1/2 to 1 tablet by mouth go ry 6 hours as needed for pain LORTAB 5 5-500 MG TABS HYDROCODONE-A CETAMINOPHEN Inactive AMITRIPTYLINE HCL 25 MG TAB 1 tab by mouth daily 60 minutes before bedtime AMITRIPTYLINE HCL 25 MG TAB 457649 AMITRIPTYLINE HCL Inactive AMOXICILLIN 500 MG TABS 2 tabs PO bid x 10 d 7 AMOXICILLIN 500 MG TABS 992030 AMOXICILLIN Inactive IMPLANON 68 MG IMPL IMPLANTED IN LEFT ARM IMPLANON 68 MG IMPL ETONOGESTREL Inactive HYDROCODONE-ACETAMINOPHEN 5-325 MG TABS 1 PO tid PRN pain 5 HYDROCODONE-ACETAMINOPHEN 5-325 MG TABS 470522 HYDROCODONE-ACETAMIN OPHEN Inactive BACTRIM DS 800-160 MG TAB 1 tab by mouth twice daily 2 BACTRIM DS 800-160 MG TAB TRIMETHOPRIM-SULFAMETHOXAZOLE Inac tive CEPHALEXIN 500 MG CAPS 1 PO bid x 7 days CEPHALEXIN 500 MG CAPS 099792 CEPHALEXIN Inactive HYDROCODONE-ACETAMINOPHEN 5-325 MG TABS 1 tab by mouth every 6 hours as needed HYDROCODONE-ACETAMINOPHEN 5-325 MG TABS 734860 HYDROCODONE-ACETAMINOPHEN Inactive PROMETHAZINE-CODEINE 6.25-10 MG/5ML SYRP 1 tsp every 6 hrs prn c ough PROMETHAZINE-CODEINE 6.25-10 MG/5ML SYRP 845641 PROMETH AZINE-CODEINE Inactive IBUPROFEN 800 MG TAB 1 pill three times daily as needed for pain IBUPROFEN 800 MG TAB 525315 IBUPROFEN Inactive KEFLEX 500 MG CAP 1 tab po tid KEFLEX 500 MG CAP 238806 CEPHALEXIN Inactive HYDROCODONE-ACETAMINOPHEN 7.5-325 MG TABS 1 four times a day as needed for pain HYDROCODONE-ACETAMINOPHEN 7.5-325 MG TABS 011560 HYDROCODONE-ACETAMINOPHEN Inactive BACTRIM DS 800-160 MG TABS by mouth twice a day 11/05 BACTRIM DS 800-160 MG TABS SULFAMETHOXAZOLE-TRIMETHOPRIM Inactive IBUPROFEN 800 MG TABS 1 tid prn IBUPROFEN 800 MG TABS 007013 IBUPROFEN Inactive ENDOCET 10-325 MG TABS 1 q 6 hr prn ENDOC ET 10-325 MG TABS 6596439 OXYCODONE-ACETAMINOPHEN Inactive AMOXICILLIN 875 MG TABS 1 tab by mouth twice daily 201 07/18/07 AMOXICILLIN 875 MG TABS 437214 AMOXICILLIN Inactive KEFLEX 500 MG CAP 1 po tid x 10 days KEFLEX 500 MG CAP 533663 CEPHALEXIN Inactive AMOXICILLIN 875 MG TABS 1 tab by mouth twice daily 201 07/19/27 AMOXICILLIN 875 MG TABS 074309 AMOXICILLIN Inactive AMOXICILLIN 875 MG TABS 1 tab by mouth twice daily 201 08/09/13 AMOXICILLIN 875 MG TABS 811486 AMOXICILLIN Inactive CIPRO 500 MG TAB 1 tablet by mouth twice daily CIPRO 500 MG TAB 904465 CIPROFLOXACIN HCL Inactive BACTRIM DS 800-160 MG TAB 1 tab by mouth twice daily 2 BACTRIM DS 800-160 MG TAB TRIMETHOPRIM-SULFAMETHOXAZOLE Inac tive LEVAQUIN 500 MG TABS 1 PO q day x 7 days LEVAQUIN 500 MG TABS 455032 LEVOFLOXACIN Inactive CLINDAMYCIN HCL 300 MG CAPS 1 po QID x 7 days CLINDAMYCIN HCL 300 MG CAPS 285334 CLINDAMYCIN HCL Inactive Advance Directives Directive Description Start Date PERMISSION TO SHARE Immunizations Vaccine Administration Date Value Standard Alf cription Seasonal influenza vaccine, injectable, containing preservative, for > 3 years old (Afluria, FluLaval, Fluzone, Fluvirin, Fluarix, Agriflu(>= 18 yo)) Fluzone (>3 yrs.) [[id number]] Influenza, seasonal, inject able Seasonal influenza vaccine, injectable, preservative free, for > 3 years old (Afluria, FluLaval, Fluzone, Fluvirin, Fluarix, Agriflu(>= 18 yo)) Fluzone preservative free (>3 yrs.) [[id number]] Influenza, seasonal, injectable, preservative free Seasonal influenza vaccine, injectable, containing preservative, for > 3 years old (Afluria, FluLaval, Fluzone, Fluvirin, Fluarix, Agriflu(>= 18 yo)) Fluzone (>3 yrs.) [[id number]] Influenza, seasonal, inject able Seasonal influenza vaccine, injectable, containing preservative, for > 3 years old (Afluria, FluLaval, Fluzone, Fluvirin, Fluarix, Agriflu(>= 18 yo)) Fluzone (>3 yrs.) [[id number]] Influenza, seasonal, inject able dT (Diphtheria and [...] BP ribiero blood pressure, systolic - 8480-6 121 mm[Hg] [...] ... - Chemistry sodium, serum 140 mmol/L 065-081 5695/02/24 potassium, serum 4.3 mmol/L 3.5-5.2 chloride, serum [...] 4.3-6.0 Lab Report: T3, TOTAL, INSULIN - [employer] ry triiodothyronine (T3), serum 78 ng/dL 76-181 [...] mg/dL Encounters Code Encounter Date Provider Facility CPT-01091 Level 3 Est. Patient 14:19:37 CDT Abdirahman Rios MD [facility] CPT-88610 Level 3 Est. Patient 14:11:58 CDT Kalpesh goins MD [facility] CPT-96443 Level 3 Est. Patient 16:50:00 CDT Michelle MERCADO [facility] CPT-73974 Level 3 Est. Patient 17:11:32 [facility] Brandie bates MD PhD [facility] CPT-78103 Level 3 Est. Patient 16:31:47 [employer] [facility] Shola Wright [facility] CPT-22236 Level 3 Est. Patient 17:51:10 [employer] [facility] Abhinav Galvan MD [facility] CPT-33365 Level 4 Est. Patient 12:54:56 [employer] [facility] Kalpesh goins MD [facility] CPT-35836 Level 4 Est. Patient 12:53:56 [employer] Kalpesh goins MD [facility] CPT-75775 Level 3 Est. Patient 17:56:58 CDT Shola Wright [facility] CPT-41295 Level 3 Est. Patient 14:26:20 CDT Janak butcher [facility] CPT-57211 Level 3 Est. Patient 09:38:41 CDT Shola Wright [facility] CPT-49944 Level 3 Est. Patient 14:45:26 CDT Edilberto tiwari DO [facility] CPT-89490 Level 3 Est. Patient 10:51:33 [facility] Level 3 Est. Patient 11:57:55 [employer] Shola Wright [facility] CPT-87898 Level 3 Est. Patient 09:53:33 [employer] Edilberto tiwari [facility] CPT-78673 Level 3 Est. Patient 14:42:54 [employer] Abhinav Galvan MD [facility] CPT-21506 Level 3 Est. Patient 15:10:02 CDT Janak Stevenamira butcher [facility] CPT-18270 Level 3 Est. Patient 15:20:20 CDT Theo dennis MD [facility]-65429 Level 2 Est. Patient 14:08:57 CDT Kalpesh goins MD [facility] CPT-37203 Level 3 Est. Patient 13:56:19 CDT Abdirahman Rios MD [facility] CPT-41328 Level 3 Est. Patient 13:59:37 CDT Abdirahman Rios MD [facility] CPT-38795 Level 2 Est. Patient 14:44:59 CDT Kalpesh goins MD [facility] CPT-59562 Level 3 Est. Patient 06:06:23 CDT Edilberto tiwari [facility] CPT-50146 Level 3 Est. Patient 15:23:54 CDT Abdirahman Rios MD [facility] CPT-74678 Level 3 Est. Patient 15:43:49 CDT Abdirahman Rios MD [facility] CPT-28464 Level 3 Est. Patient 12:46:47 [employer] Abdirahman Rios MD [facility] CPT-08862 Level 3 Est. Patient 08:13:35 [employer] Abdirahman Rios MD [facility] CPT-44675 Level 2 Est. Patient 09:36:42 [employer] Abdirahman Rios MD [facility] CPT-77875 Level 3 Est. Patient 10:56:43 CDT Abdirahman Rios MD [facility] CPT-28192 Level 3 Est. Patient 18:24:52 CDT Abdirahman Rios MD [facility] CPT-81493 Level 3 Est. Patient 13:27:22 CDT Abdirahman Rios MD [facility] Procedures Code Procedure Name Date Entry Date Standard Desc ription CPT-OV Office Visit 15:34:48 CDT CPT-82917 Postop F/U Visit 14:50:12 CDT CPT-72307 Postop F/U Visit 14:41:10 CDT CPT-48939 Venipuncture Draw Fee 11:38:04 [facility] CPT-33508 Postop F/U Visit 19:02:59 [employer] [facility] CPT-37090 Postop F/U Visit 12:04:54 [employer] [facility] [facility] CPT-38805 Administration single or combination vac cine inc oral 15:56:43 CDT CPT-35967 Influenza split virus > age 3 15:56:43 CDT CPT-96161 Hand comp min 3V 14:25:19 CDT CPT-83802 Postop F/U Visit 21:40:51 CDT CPT-20863 Postop F/U Visit 10:58:43 CDT CPT-44180 Administration single or combination vac cine inc oral 12:33:54 [employer] [facility] [facility] CPT-17952 Influenza Preservative Free split virus >age 3 12:33:54 [employer] [facility] CPT-59936 Administration single or combination vac cine inc oral 09:30:51 CDT CPT-95113 Influenza split virus > age 3 09:30:51 CDT CPT-39789 Postop F/U Visit 15:14:53 CDT CPT-93111 Postop F/U Visit 13:50:14 CDT CPT-39473 Postop F/U Visit 13:34:52 CDT CPT-OV Office Visit 16:55:03 CDT CPT-50523 [place]rass of cervix w bx ECC 13:32:50 CDT 10/19 CPT-J1885 Toradol 60 mg (Ketorolac) 15:31:59 CDT 2011 CPT-J1885 Toradol 60 mg (Ketorolac) 15:23:54 CDT 2011 CPT-62998 Visit 11:34:37 [facility] CPT-53447 Visit 10:52:39 [facility] CPT-59432 Visit 10:12:02 [facility] CPT-49656 Visit 11:22:43 [facility] [facility] CPT-90713 Visit 11:24:12 [employer] [facility] [facility] CPT-71011 Visit 10:47:05 [employer] [facility] CPT-OV Office Visit 10:26:16 [employer] [facility] CPT-OV Office Visit 15:34:31 [employer] [facility] [facility] CPT-70132 Visit 10:42:08 [employer] [facility] CPT-72872 Visit 10:52:45 [employer] [facility] CPT-000 Give Appropriate Flu Vaccine 16:56:41 CDT 2 CPT-04604 Administration single or combination vac cine inc oral 10:33:21 CDT CPT-77889 Influenza split virus > age 3 10:33:21 CDT CPT-47330 Visit 13:23:09 CDT CPT-54338 Visit 18:24:52 CDT CPT-48548 Sono OB comp > 14 weeks 12:07:49 CDT 04/07
--- OUTSIDE RECORDS SUMMARY | 2020-01-18 17:26 | XMS REPORT | Clinical Summary ---
Author Author Admin, Jeri Rashid Organization [facility] Address Unknown Phone Unavailable Allergies, [...] system, NEC ACUTE BRONCHITIS 466.0 Resolved Good melhcor MD Acute bronchitis JAW PAIN 526.9 Resolved [...] 1 po BID PRN Anxiety ALPRA ZOLAM 23968131611 Active Abdirahman Rios MD Active EMLA 2.5-2.5 % EXT CREA apply to skin lesion q 6 hours, prn LIDOCAINE-PRILOCAINE 44737794435 Active Hira Moser APRN Active CYCLOBENZAPRINE HCL 10 MG TABS 1 tablet by mouth three times daily as needed for muscle spasm/pain CYCLOBENZAPRINE HCL 74804402942 Active Abdirahman Rios MD Active PREDNISONE 20 MG TAB 2 tabs daily for 3 days, 1 t ab daily for 3 days, 1/2 tab daily for 2 days PREDNISONE 91933557783 No Longer Active Abdirahman Rios MD Active KEFLEX 500 MG CAP 1 po qid CEPHALEXIN 341733739 20 No Longer Active Kalpesh Dong MD Active PERCOCET 5-325 MG TAB 1 every 6 hours as needed OXYCODONE-ACETAMINOPHEN 62143297867 No Longer Active Shola MCGILL Active LC-5 LIDOCAINE 5 % CREA apply 1 time daily to affected area 2013 LIDOCAINE (ANORECTAL) 50337400830 No Longer Active Hira muniz APRN Active HYDROCODONE-ACETAMINOPHEN 5-325 MG TABS 2 tablets by m outh every 8 hours as needed for pain HYDROCODONE-ACETAMINOPHEN 37830202532 Acti ve Abdirahman Rios MD Active HYDROCODONE-ACETAMINOPHEN 10-325 MG TABS 1 by mouth ev chaka 8 hours as needed for pain HYDROCODONE-ACETAMINOPHEN 62242990642 No Longer Active Hira Moser APRN Active LORATADINE 10 MG TABS 1 tablet by mouth daily L ORATADINE 40227223275 No Longer Active Hira Moser APRN Active DIFLUCAN 150 MG TAB 1 qODay x 2 doses FLUCONAZO LE 96754998998 No Longer Active Hira Moser APRN Active CYCLOBENZAPRINE HCL 10 MG TABS 1/2 - 1 tab PO tid PRN back p ain, muscle spasm CYCLOBENZAPRINE HCL 03317472855 No Longer Active Karen herson Frazell [employer] ARCHITECT Active AUGMENTIN 875-125 MG TAB 1 tab by mouth twice daily with food 20 22/05/07 AMOXICILLIN-POT CLAVULANATE 19143416699 No Longer Active Loida Rios MD Active MOBIC 15 MG TABS 1 tab daily MELOXICAM 350944785 14 No Longer Active Abdirahman Rios MD Active PERCOCET 7.5-325 MG TABS 1 PO tid PRN pain OXYCODONE-ACETAMINOPHEN 21857593838 No Longer Active Abdirahman Rios MD Active LIDODERM 5 % PTCH One patch to painful area [place] N. On for 12 hrs, off for 12 hrs. LIDOCAINE 96467087180 No Longer Active Abdirahman Riso MD Active PERCOCET 7.5-325 MG TABS 1 PO q 8 hrs PRN pain OXYCODONE-ACETAMINOPHEN 33748077345 No Longer Active Shola MCGILL Active HYDROCODONE-ACETAMINOPHEN 7.5-325 MG TABS 1 by mouth e very 6 hours as needed for pain HYDROCODONE-ACETAMINOPHEN 02379542582 No Longer Active Good Julian MD Active CLINDAMYCIN HCL 300 MG CAPS 1 po QID x 7 days CLINDAMYCIN HCL 12945259529 No Longer Active Abdirahman Rios MD Activ e BACTRIM DS 800-160 MG TABS 1 po BID x 7 days 5 SULFAMETHOXAZOLE-TRIMETHOPRIM 69136215170 No Longer Active Abdirahman Rios MD Active ENDOCET 10-325 MG TABS 1 q 6 hr prn OXYCODONE-ACETAMINOPHEN 10260173346 No Longer Active Abdirahman Rios MD Active IBUPROFEN 800 MG TABS 1 tid prn IBUPROFEN 832692 50378 No Longer Active Abdirahman Rios MD Active BACTRIM DS 800-160 MG TABS by mouth twice a day 11/05 SULFAMETHOXAZOLE-TRIMETHOPRIM 48616514523 No Longer Active Good Julian MD Active HYDROCODONE-ACETAMINOPHEN 7.5-325 MG TABS 1 four times a day as needed for pain HYDROCODONE-ACETAMINOPHEN 45477144894 No Longer Activ e Good Julian MD Active KEFLEX 500 MG CAP 1 tab po tid CEPHALEXIN 909401 76829 No Longer Active Hira Moser APRN Active IBUPROFEN 800 MG TAB 1 pill three times daily as needed for pain IBUPROFEN 94817643456 No Longer Active Kalpesh Dong MD Active PROMETHAZINE-CODEINE 6.25-10 MG/5ML SYRP 1 tsp every 6 hrs prn c ough PROMETHAZINE-CODEINE 79737631826 No Longer Active Kalpesh Carr Active HYDROCODONE-ACETAMINOPHEN 5-325 MG TABS 1 tab by mouth every 6 hours as needed HYDROCODONE-ACETAMINOPHEN 97353659848 No Longer Activ e Shola MCGILL Active CEPHALEXIN 500 MG CAPS 1 PO bid x 7 days CEPHAL EXIN 04413068371 No Longer Active Shola MCGILL Active BACTRIM DS 800-160 MG TAB 1 tab by mouth twice daily 2 TRIMETHOPRIM-SULFAMETHOXAZOLE 07521216639 No Longer Active Kalpesh Dong MD Active HYDROCODONE-ACETAMINOPHEN 5-325 MG TABS 1 PO tid PRN pain 5 HYDROCODONE-ACETAMINOPHEN 23882015593 No Longer Active Abhinav Galvan MD Active IMPLANON 68 MG IMPL IMPLANTED IN LEFT ARM ETONO GESTREL 98034309049 No Longer Active Hira Moser APRN Active AMOXICILLIN 500 MG TABS 2 tabs PO bid x 10 d AM OXICILLIN 63811298540 No Longer Active Kalpesh Dong MD Active LEVAQUIN 500 MG TABS 1 PO q day x 7 days LEVOFL OXACIN 99676761130 No Longer Active Shola MCGILL Active PROAIR HFA 108 (90 BASE) MCG/ACT AERS 2 puff q 4-6 hrs PRN ALBUTEROL SULFATE 85566237980 Active Edilberto Marino DO Active FIORICET 50-325-40 MG TABS 2 PO q 8 hrs PRN FOSTER ACOQRANCLX-YXFZ-DNRZVARI Active Abdirahman Rios MD Active AMITRIPTYLINE HCL 25 MG TAB 1 tab by mouth daily 60 minutes before bedtime AMITRIPTYLINE HCL 74847580575 No Longer Active Shola MCGILL Active LORTAB 5 5-500 MG TABS 1/2 to 1 tablet by mouth go ry 6 hours as needed for pain HYDROCODONE-ACETAMINOPHEN 36016738214 No Longer Active Shola MCGILL Active CEPHALEXIN 500 MG TABS Take one by mouth four times daily, morning, noon, early evening and bedtime. CEPHALEXIN 19525386815 No Long er Active Hira Moser APRN Active TYLENOL/CODEINE #3 300-30 MG TAB 1-2 po q6hr PRN Pain ACETAMINOPHEN-CODEINE 80490437121 No Longer Active Edilberto Marino DO Active PRISTIQ 50 MG [id number] 1 po qd DESVENLAFAXI NE SUCCINATE 94169941627 No Longer Active Edilberto Marino DO Active PENICILLIN V POTASSIUM 500 MG TAB 1 four times a day 2 PENICILLIN V POTASSIUM 35267796443 No Longer Active Edilberto Marino DO Active DOXYCYCLINE HYCLATE 100 MG CAPS Take one (1) tablet by mouth twice a day DOXYCYCLINE HYCLATE 83405371921 No Longer Active Ronnie Galvan MD Active HYDROCODONE-ACETAMINOPHEN 5-325 MG TABS 1 po q 6hr PRN Pain 2011 HYDROCODONE-ACETAMINOPHEN 06913207267 No Longer Active Jerson Perez RN Active BACTRIM DS 800-160 MG TAB 1 tab by mouth twice daily 2 TRIMETHOPRIM-SULFAMETHOXAZOLE 92276866119 No Longer Active Kalpesh Dong MD Active LORTAB 5 5-500 MG TABS 1/2 to 1 tablet by mouth go ry 4 hours as needed for pain HYDROCODONE-ACETAMINOPHEN 66314829153 No Longer Active Kalpesh Dong MD Active GENERESS FE 0.8-25 MG-MCG CHEW Take one by mouth daily NORETHIN-ETH ESTRADIOL-FE 73224468212 No Longer Active Kalpesh Dong MD Active HYDROCODONE-ACETAMINOPHEN 7.5-500 MG TABS 1-2 every 4 hours as needed HYDROCODONE-ACETAMINOPHEN 85580882437 No Longer Activ e Kalpesh Dong MD Active FERROUS SULFATE 325 (65 FE) MG TABS 1 tablet by mouth twice yung y FERROUS SULFATE 71757599980 No Longer Active Kalpesh Dong MD Active IBUPROFEN 600 MG TAB 1 po q6-8hr PRN IBUPROFEN 44090824159 No Longer Active Kalpesh Dong MD Active SPIRONOLACTONE 25 MG TAB 1 tablet by mouth daily 01/22 SPIRONOLACTONE 67850283081 No Longer Active Kalpesh Dong MD Acti ve HYDROCODONE-ACETAMINOPHEN 7.5-325 MG TABS 1 po QID PRN Pain 2011 HYDROCODONE-ACETAMINOPHEN 88147606395 No Longer Active Kalpesh Dong MD Active CLINDAMYCIN HCL 300 MG CAPS 1 po q6hr x 7 days CLINDAMYCIN HCL 94498743641 No Longer Active Edilberto Marino DO Active PREDNISONE 20 MG TAB 2 tabs daily for 4 days, 1 t ab daily for 4 days, 1/2 tab daily for 4 days PREDNISONE 67001936502 No Longer Active Edilberto Marino DO Active PERCOCET 5-325 MG TABS 1 tablet by mouth every 6 hours as ne eded for pain OXYCODONE-ACETAMINOPHEN 25002983558 No Longer Active Abdirahman Rios MD Active VITAMINS TABS Take one by mouth daily MV & MIN W/FE-FA TABS 80302445132 No Longer Active Abdirahman Rios MD Active LUIS 3-0.02 MG TABS 1 tablet by mouth daily as directed DROSPIRENONE-ETHINYL ESTRADIOL 00915665919 No Longer Active Abdirahman Rios MD Active LORATADINE 10 MG TABS 1 tablet by mouth daily L ORATADINE 43234137404 No Longer Active Kalpesh Dong MD Active HYDROCODONE-ACETAMINOPHEN 5-325 MG TABS 1 po q 6hr PRN Pain 2010 HYDROCODONE-ACETAMINOPHEN 78179265445 No Longer Active Edilberto Marino DO Active BACTRIM DS 800-160 MG TAB 1 tab by mouth twice daily 2 TRIMETHOPRIM-SULFAMETHOXAZOLE 77232687987 No Longer Active Abdirahman Rios MD Active 28-0.8 MG TABS Take one by mouth daily 09/20 VIT-FE FUMARATE-FA 55783782797 No Longer Active Abdirahman Rios MD Active CIPRO 500 MG TAB 1 tablet by mouth twice daily CIPROFLOXACIN HCL 27430700749 No Longer Active Abdirahman Rios MD Active BENADRYL 25 MG CAP 1 po q8hr PRN Congestion DIPHENHYDRAMINE HCL 00988938789 No Longer Active Abdirahman Rios MD Active ZOLOFT 50 MG TAB 1 po qd SERTRALINE HCL 008183 67821 No Longer Active Abdirahman Rios MD Active AMOXICILLIN 875 MG TABS 1 tab by mouth twice daily 201 08/09/13 AMOXICILLIN 79958262031 No Longer Active Abdirahman Rios MD Activ e AMOXICILLIN 875 MG TABS 1 tab by mouth twice daily 201 07/19/27 AMOXICILLIN 53315010327 No Longer Active Abdirahman Rios MD Activ e BACTRIM DS 800-160 MG TAB 2 tab by mouth twice daily 2 TRIMETHOPRIM-SULFAMETHOXAZOLE 77494276294 No Longer Active Abdirahman Rios MD Active KEFLEX 500 MG CAP 1 po tid x 10 days CEPHALEXIN 18180731296 No Longer Active Abdirahman Rios MD Active AMOXICILLIN 875 MG TABS 1 tab by mouth twice daily 201 07/18/07 AMOXICILLIN 25903780812 No Longer Active Abdirahman Rios MD Activ e BACTRIM DS 800-160 MG TAB 2 tab by mouth twice daily 2 BACTRIM DS 800-160 MG TAB TRIMETHOPRIM-SULFAMETHOXAZOLE Inactive ZOLOFT 50 MG TAB 1 po qd ZOLOFT 50 MG TAB 3129 41 SERTRALINE HCL Inactive BENADRYL 25 MG CAP 1 po q8hr PRN Congestion BENADRYL 25 MG CAP 7314654 DIPHENHYDRAMINE HCL Inactive 28-0.8 MG TABS Take one by mouth daily 09/20 28-0.8 MG TABS VIT-FE FUMARATE-FA Inactive HYDROCODONE-ACETAMINOPHEN 5-325 MG TABS 1 po q 6hr PRN Pain 2010 HYDROCODONE-ACETAMINOPHEN 5-325 MG TABS 063339 HYDROCODONE-ACETAMINOPHEN Inactive LORATADINE 10 MG TABS 1 tablet by mouth daily LORATADINE 10 MG TABS 288351 LORATADINE Inactive LUIS 3-0.02 MG TABS 1 tablet by mouth daily as directed LUIS 3-0.02 MG TABS DROSPIRENONE-ETHINYL ESTRADIOL Inactive VITAMINS TABS Take one by mouth daily VITAMINS TABS MV & MIN W/FE-FA TABS Inactive PERCOCET 5-325 MG TABS 1 tablet by mouth every 6 hours as ne eded for pain PERCOCET 5-325 MG TABS 9762747 OXYCODONE-ACETAMIN OPHEN Inactive PREDNISONE 20 MG TAB 2 tabs daily for 4 days, 1 t ab daily for 4 days, 1/2 tab daily for 4 days PREDNISONE 20 MG TAB 365313 PREDNISON E Inactive CLINDAMYCIN HCL 300 MG CAPS 1 po q6hr x 7 days CLINDAMYCIN HCL 300 MG CAPS 916156 CLINDAMYCIN HCL Inactive HYDROCODONE-ACETAMINOPHEN 7.5-325 MG TABS 1 po QID PRN Pain 2011 HYDROCODONE-ACETAMINOPHEN 7.5-325 MG TABS 681739 HYDROCODONE-ACETAMINOPHEN Inactive SPIRONOLACTONE 25 MG TAB 1 tablet by mouth daily 01/22 SPIRONOLACTONE 25 MG TAB 150552 SPIRONOLACTONE Inactive IBUPROFEN 600 MG TAB 1 po q6-8hr PRN IBUPROFEN 600 MG TAB 394176 IBUPROFEN Inactive FERROUS SULFATE 325 (65 FE) MG TABS 1 tablet by mouth twice yung y FERROUS SULFATE 325 (65 FE) MG TABS 318963 FERROUS SULF ATE Inactive HYDROCODONE-ACETAMINOPHEN 7.5-500 MG [...] PRN Pain 2011 HYDROCODONE-ACETAMINOPHEN 5-325 MG TABS 646038 HYDROCODONE-ACETAMINOPHEN Inactive DOXYCYCLINE HYCLATE 100 MG CAPS Take one (1) tablet by mouth twice a day DOXYCYCLINE HYCLATE 100 MG CAPS 332665 DOXYCYCLINE HYCLATE Inactive PENICILLIN V POTASSIUM 500 MG TAB 1 four times a day 2 PENICILLIN V POTASSIUM 500 MG TAB 493566 PENICILLIN V POTASSIUM Saxon ctive PRISTIQ 50 MG [id number] 1 po qd PRISTIQ 50 MG [id number] DESVENLAFAXINE SUCCINATE Inactive TYLENOL/CODEINE #3 300-30 MG TAB 1-2 po q6hr PRN Pain TYLENOL/CODEINE #3 300-30 MG TAB 047813 ACETAMINOPHEN-CODEINE Inact krishna CEPHALEXIN 500 MG TABS Take one by mouth four times daily, morning, noon, early evening and bedtime. CEPHALEXIN 500 MG TABS 120452 CEPHALEXIN Inactive LORTAB 5 5-500 MG TABS 1/2 to 1 tablet by mouth go ry 6 hours as needed for pain LORTAB 5 5-500 MG TABS HYDROCODONE-A CETAMINOPHEN Inactive AMITRIPTYLINE HCL 25 MG TAB 1 tab by mouth daily 60 minutes before bedtime AMITRIPTYLINE HCL 25 MG TAB 951367 AMITRIPTYLINE HCL Inactive AMOXICILLIN 500 MG TABS 2 tabs PO bid x 10 d 7 AMOXICILLIN 500 MG TABS 932835 AMOXICILLIN Inactive IMPLANON 68 MG IMPL IMPLANTED IN LEFT ARM IMPLANON 68 MG IMPL ETONOGESTREL Inactive HYDROCODONE-ACETAMINOPHEN 5-325 MG TABS 1 PO tid PRN pain 5 HYDROCODONE-ACETAMINOPHEN 5-325 MG TABS 500481 HYDROCODONE-ACETAMIN OPHEN Inactive BACTRIM DS 800-160 MG TAB 1 tab by mouth twice daily 2 BACTRIM DS 800-160 MG TAB TRIMETHOPRIM-SULFAMETHOXAZOLE Inac tive CEPHALEXIN 500 MG CAPS 1 PO bid x 7 days CEPHALEXIN 500 MG CAPS 025972 CEPHALEXIN Inactive HYDROCODONE-ACETAMINOPHEN 5-325 MG TABS 1 tab by mouth every 6 hours as needed HYDROCODONE-ACETAMINOPHEN 5-325 MG TABS 324916 HYDROCODONE-ACETAMINOPHEN Inactive PROMETHAZINE-CODEINE 6.25-10 MG/5ML SYRP 1 tsp every 6 hrs prn c ough PROMETHAZINE-CODEINE 6.25-10 MG/5ML SYRP 683650 PROMETH AZINE-CODEINE Inactive IBUPROFEN 800 MG TAB 1 pill three times daily as needed for pain IBUPROFEN 800 MG TAB IBUPROFEN Inactive KEFLEX 500 MG CAP 1 tab po tid KEFLEX 500 MG CAP 613543 CEPHALEXIN Inactive HYDROCODONE-ACETAMINOPHEN 7.5-325 MG TABS 1 four times a day as needed for pain HYDROCODONE-ACETAMINOPHEN 7.5-325 MG TABS 159609 HYDROCODONE-ACETAMINOPHEN Inactive BACTRIM DS 800-160 MG TABS by mouth twice a day 11/05 BACTRIM DS 800-160 MG TABS SULFAMETHOXAZOLE-TRIMETHOPRIM Inactive IBUPROFEN 800 MG TABS 1 tid prn IBUPROFEN 800 MG TABS 579991 IBUPROFEN Inactive ENDOCET 10-325 MG TABS 1 q 6 hr prn ENDOC ET 10-325 MG TABS 6133386 OXYCODONE-ACETAMINOPHEN Inactive HYDROCODONE-ACETAMINOPHEN 7.5-325 MG TABS 1 by mouth e very 6 hours as needed for pain HYDROCODONE-ACETAMINOPHEN 7.5-325 MG TABS 774918 HYDROCODONE-ACETAMINOPHEN Inactive PERCOCET 7.5-325 MG TABS 1 PO q 8 hrs PRN pain PERCOCET 7.5-325 MG TABS 1276393 OXYCODONE-ACETAMINOPHEN Inactive LIDODERM 5 % PTCH One patch to painful area [place] N. On for 12 hrs, off for 12 hrs. LIDODERM 5 % PTCH 9476636 LIDOCAINE Inactiv e PERCOCET 7.5-325 MG TABS 1 PO tid PRN pain PERCOCET 7.5- 325 MG TABS 3873400 OXYCODONE-ACETAMINOPHEN Inactive MOBIC 15 MG TABS 1 tab daily MOBIC 15 MG TABS 15 2695 MELOXICAM Inactive CYCLOBENZAPRINE HCL 10 MG TABS 1/2 - 1 tab PO tid PRN back p ain, muscle spasm CYCLOBENZAPRINE HCL 10 MG TABS 753994 CYCLOBENZA JOSEPH HCL Inactive LORATADINE 10 MG TABS 1 tablet by mouth daily LORATADINE 10 MG TABS 813680 LORATADINE Inactive HYDROCODONE-ACETAMINOPHEN 10-325 MG TABS 1 by mouth ev chaka 8 hours as needed for pain HYDROCODONE-ACETAMINOPHEN 10-325 MG TABS 534938 HYDROCODONE-ACETAMINOPHEN Inactive LC-5 LIDOCAINE 5 % CREA apply 1 time daily to affected area 2013 LC-5 LIDOCAINE 5 % CREA LIDOCAINE (ANORECTAL) In active PERCOCET 5-325 MG TAB 1 every 6 hours as needed PERCOCET 5-325 MG TAB 9825493 OXYCODONE-ACETAMINOPHEN Inactive KEFLEX 500 MG CAP 1 po qid KEFLEX 500 MG CAP 30 9114 CEPHALEXIN Inactive AMOXICILLIN 875 MG TABS 1 tab by mouth twice daily 201 07/18/07 AMOXICILLIN 875 MG TABS 996639 AMOXICILLIN Inactive KEFLEX 500 MG CAP 1 po tid x 10 days KEFLEX 500 MG CAP 855960 CEPHALEXIN Inactive AMOXICILLIN 875 MG TABS 1 tab by mouth twice daily 201 07/19/27 AMOXICILLIN 875 MG TABS 793496 AMOXICILLIN Inactive AMOXICILLIN 875 MG TABS 1 tab by mouth twice daily 201 08/09/13 AMOXICILLIN 875 MG TABS 989574 AMOXICILLIN Inactive CIPRO 500 MG TAB 1 tablet by mouth twice daily CIPRO 500 MG TAB 836436 CIPROFLOXACIN HCL Inactive BACTRIM DS 800-160 MG TAB 1 tab by mouth twice daily 2 BACTRIM DS 800-160 MG TAB TRIMETHOPRIM-SULFAMETHOXAZOLE Inac tive LEVAQUIN 500 MG TABS 1 PO q day x 7 days LEVAQUIN 500 MG TABS 246105 LEVOFLOXACIN Inactive CLINDAMYCIN HCL 300 MG CAPS 1 po QID x 7 days CLINDAMYCIN HCL 300 MG CAPS 107071 CLINDAMYCIN HCL Inactive AUGMENTIN 875-125 MG TAB 1 tab by mouth twice daily with food 20 22/05/07 AUGMENTIN 875-125 MG TAB 204657 AMOXICILLIN-POT CLAVULA [place] Inactive DIFLUCAN 150 MG TAB 1 qODay x 2 doses DIFLUCAN 150 MG TAB 714563 FLUCONAZOLE Inactive PREDNISONE 20 MG TAB 2 tabs daily for 3 days, 1 t ab daily for 3 days, 1/2 tab daily for 2 days PREDNISONE 20 MG TAB 434756 PREDNISON E Inactive Advance Directives Directive Description Start Date PERMISSION TO SHARE Immunizations Vaccine Administration Date Value Standard Alf cription Seasonal influenza vaccine, injectable, containing preservative, for > 3 years old (Afluria, FluLaval, Fluzone, Fluvirin, Fluarix, Agriflu(>= 18 yo)) Fluzone (>3 yrs.) [[id number]] Influenza, seasonal, inject able Seasonal influenza vaccine, injectable, preservative free, for > 3 years old (Afluria, FluLaval, Fluzone, Fluvirin, Fluarix, Agriflu(>= 18 yo)) Fluzone preservative free (>3 yrs.) [[id number]] Influenza, seasonal, injectable, preservative free Seasonal influenza vaccine, injectable, containing preservative, for > 3 years old (Afluria, FluLaval, Fluzone, Fluvirin, Fluarix, Agriflu(>= 18 yo)) Fluzone (>3 yrs.) [[id number]] Influenza, seasonal, inject able Seasonal influenza vaccine, injectable, containing preservative, for > 3 years old (Afluria, FluLaval, Fluzone, Fluvirin, Fluarix, Agriflu(>= 18 yo)) Fluzone (>3 yrs.) [[id number]] Influenza, seasonal, inject able dT (Diphtheria and [...] - 3141-9 237.4 [lb_av] Weigh t Measured Encounters Code Encounter Date Provider Facility CPT-99056 Level 3 New Patient 15:47:11 INSPECTOR TESTER SORTER Bj huber MD [facility] CPT-65809 Level 4 Est. Patient 14:37:38 INSPECTOR TESTER SORTER Abdirahman Rios MD [facility] CPT-02889 Level 2 Est. Patient 13:32:17 INSPECTOR TESTER SORTER Kalpesh goins MD [facility] CPT-37336 Level 3 Est. Patient 17:32:57 INSPECTOR TESTER SORTER Edilberto tiwari [facility] CPT-41787 Level 3 Est. Patient 17:22:33 INSPECTOR TESTER SORTER Edilberto tiwari [facility] CPT-06223 Level 2 Est. Patient 16:57:09 INSPECTOR TESTER SORTER Kalpesh goins MD [facility] CPT-46346 Level 3 Est. Patient 14:03:08 INSPECTOR TESTER SORTER Abdirahman Rios MD [facility] [place]-40282 Level 3 Est. Patient 18:12:34 CDT Shola Wright [facility] CPT-30052 Level 3 Est. Patient 19:34:46 CDT Shola Wright [facility] CPT-43926 Level 3 Est. Patient 14:19:37 CDT Abdirahman Rios MD [facility] CPT-21636 Level 3 Est. Patient 14:11:58 CDT Kalpesh goins MD [facility]-16435 Level 3 Est. Patient 16:50:00 CDT Michelle MERCADO [facility] CPT-54196 Level 3 Est. Patient 17:11:32 INSPECTOR TESTER SORTER Brandie bates MD PhD [facility] CPT-65049 Level 3 Est. Patient 16:31:47 INSPECTOR TESTER SORTER Shola Wright [facility] CPT-43479 Level 3 Est. Patient 17:51:10 INSPECTOR TESTER SORTER Abhinav Galvan MD [facility] CPT-36766 Level 4 Est. Patient 12:54:56 INSPECTOR TESTER SORTER Kalpesh goins MD [facility] CPT-92676 Level 4 Est. Patient 12:53:56 INSPECTOR TESTER SORTER Kalpesh goins MD [facility] CPT-19971 Level 3 Est. Patient 17:56:58 CDT Shola Wright [facility] CPT-68532 Level 3 Est. Patient 14:26:20 CDT Janak butcher [facility] CPT-40060 Level 3 Est. Patient 09:38:41 CDT Shola Wright [facility] CPT-46922 Level 3 Est. Patient 14:45:26 CDT Edilberto tiwari [facility] CPT-60151 Level 3 Est. Patient 10:51:33 [facility] Est. Patient 11:57:55 INSPECTOR TESTER SORTER Shola Wright [facility] CPT-80061 Level 3 Est. Patient 09:53:33 INSPECTOR TESTER SORTER Edilberto tiwari [facility] CPT-29170 Level 3 Est. Patient 14:42:54 INSPECTOR TESTER SORTER Abhinav Galvan MD [facility]-50447 Level 3 Est. Patient 15:10:02 CDT Janak butcher [facility] CPT-04570 Level 3 Est. Patient 15:20:20 CDT Theo dennis MD [facility]-78419 Level 2 Est. Patient 14:08:57 CDT Kalpesh goins MD [facility] CPT-50589 Level 3 Est. Patient 13:56:19 CDT Abdirahman Rios MD [facility] CPT-63190 Level 3 Est. Patient 13:59:37 CDT Abdirahman Rios MD [facility] CPT-95230 Level 2 Est. Patient 14:44:59 CDT Kalpesh goins MD [facility]-46322 Level 3 Est. Patient 06:06:23 CDT Edilberto tiwari [facility] CPT-59980 Level 3 Est. Patient 15:23:54 CDT Abdirahman Rios MD [facility]-50307 Level 3 Est. Patient 15:43:49 CDT Abdirahman Rios MD [facility] CPT-53203 Level 3 Est. Patient 12:46:47 INSPECTOR TESTER SORTER Abdirahman Rios MD [facility] CPT-69579 Level 3 Est. Patient 08:13:35 INSPECTOR TESTER SORTER Abdirahman Rios MD [facility] CPT-72410 Level 2 Est. Patient 09:36:42 INSPECTOR TESTER SORTER Abdirahman Rios MD [facility] CPT-52787 Level 3 Est. Patient 10:56:43 CDT Abdirahman Rios MD [facility] CPT-80611 Level 3 Est. Patient 18:24:52 CDT Abdirahman Rios MD [facility] CPT-25789 Level 3 Est. Patient 13:27:22 CDT Abdirahman Rios MD [facility] Procedures Code Procedure Name Date Entry Date Standard Desc ription CPT-25506 Postop F/U Visit 11:29:00 INSPECTOR TESTER SORTER CPT-J0696 Rocephin 1000 mg (Ceftriaxone) 17:22:33 INSPECTOR TESTER SORTER CPT-67824 Postop F/U Visit 18:41:07 INSPECTOR TESTER SORTER CPT-24632 Postop F/U Visit 08:19:08 INSPECTOR TESTER SORTER CPT-27907 Immunization Single Admin 16:41:53 CDT 2013 CPT-60471 Fluzone Quadrivalent Intramuscular Suspe nsion 0.5 ML 16:41:53 CDT CPT-OV Office Visit 16:39:18 CDT CPT-OV Office Visit 16:16:36 CDT CPT-OV Office Visit 15:34:48 CDT CPT-03986 Postop F/U Visit 14:50:12 CDT CPT-00009 Postop F/U Visit 14:41:10 CDT CPT-55533 Venipuncture Draw Fee 11:38:04 INSPECTOR TESTER SORTER CPT-96621 Postop F/U Visit 19:02:59 INSPECTOR TESTER SORTER CPT-51291 Postop F/U Visit 12:04:54 INSPECTOR TESTER SORTER CPT-12466 Administration single or combination vac cine inc oral 15:56:43 CDT CPT-15084 Influenza split virus > age 3 15:56:43 CDT CPT-27245 Hand comp min 3V 14:25:19 CDT CPT-35038 Postop F/U Visit 21:40:51 CDT CPT-65725 Postop F/U Visit 10:58:43 CDT CPT-69632 Administration single or combination vac cine inc oral 12:33:54 INSPECTOR TESTER SORTER CPT-05019 Influenza Preservative Free split virus >age 3 12:33:54 INSPECTOR TESTER SORTER CPT-66532 Administration single or combination vac cine inc oral 09:30:51 CDT CPT-41871 Influenza split virus > age 3 09:30:51 CDT CPT-10752 Postop F/U Visit 15:14:53 CDT CPT-19557 Postop F/U Visit 13:50:14 CDT CPT-69346 Postop F/U Visit 13:34:52 CDT CPT-OV Office Visit 16:55:03 CDT CPT-76501 Hope of cervix w bx ECC 13:32:50 CDT 10/19 CPT-J1885 Toradol 60 mg (Ketorolac) 15:31:59 CDT 2011 CPT-J1885 Toradol 60 mg (Ketorolac) 15:23:54 CDT 2011 CPT-56215 Visit 11:34:37 [employer] CPT-57021 Visit 10:52:39 [employer] CPT-08346 Visit 10:12:02 [employer] CPT-78433 Visit 11:22:43 [employer] CPT-73299 Visit 11:24:12 [employer] CPT-81495 Visit 10:47:05 [employer] CPT-OV Office Visit 10:26:16 [employer] CPT-OV Office Visit 15:34:31 [employer] CPT-95131 Visit 10:42:08 [employer] CPT-41683 Visit 10:52:45 [employer] CPT-000 Give Appropriate Flu Vaccine 16:56:41 CDT 2 CPT-32176 Administration single or combination vac cine inc oral 10:33:21 CDT CPT-36835 Influenza split virus > age 3 10:33:21 CDT CPT-66480 Visit 13:23:09 CDT CPT-60768 Visit 18:24:52 CDT CPT-04203 Sono OB comp > 14 weeks 12:07:49 CDT 04/07
--- OUTSIDE RECORDS SUMMARY | 2020-01-18 17:26 | XMS REPORT | Clinical Summary ---
Author Author Admin, Jeri Rashid Organization [facility] Address Unknown Phone Allergies, Adverse Reactions, [...] by mouth twice a day 11/05 SULFAMETHOXAZOLE-TRIMETHOPRIM [id number] No Longer Active Good Julian MD Active IBUPROFEN 800 MG TABS 1 tid prn IBUPROFEN 80692350788 Active Good Julian MD Active ENDOCET 10-325 MG TABS 1 q 6 hr prn OXYCODONE-A CETAMINOPHEN 28204287686 Active Shola MCGILL Active HYDROCODONE-ACETAMINOPHEN 7.5-325 MG TABS 1 four times a day as needed for pain HYDROCODONE-ACETAMINOPHEN 73467858567 No Longer Activ crystal Julian MD Active KEFLEX 500 MG CAP 1 tab po tid CEPHALEXIN 912122 95936 No Longer Active Hira Moser APRN Active IBUPROFEN 800 MG TAB 1 pill three times daily as needed for pain IBUPROFEN 36945765512 No Longer Active Kalpesh Dong MD Active PROMETHAZINE-CODEINE 6.25-10 MG/5ML SYRP 1 tsp every 6 hrs prn c ough PROMETHAZINE-CODEINE 13482784883 No Longer Active Kalpesh Carr Active ALPRAZOLAM 0.5 MG TABS 1 PO bid PRN ALPRAZOLAM 479267 47390 Active Shola MCGILL Active HYDROCODONE-ACETAMINOPHEN 5-325 MG TABS 1 tab by mouth every 6 hours as needed HYDROCODONE-ACETAMINOPHEN 48917668432 No Longer Activ e Shola MCGILL Active CEPHALEXIN 500 MG CAPS 1 PO bid x 7 days CEPHAL EXIN 47345750293 No Longer Active Shola MCGILL Active BACTRIM DS 800-160 MG TAB 1 tab by mouth twice daily 2 TRIMETHOPRIM-SULFAMETHOXAZOLE 81033319939 No Longer Active Kalpesh Dong MD Active HYDROCODONE-ACETAMINOPHEN 5-325 MG TABS 1 PO tid PRN pain 5 HYDROCODONE-ACETAMINOPHEN 35303924224 No Longer Active Abhinav Galvan MD Active IMPLANON 68 MG IMPL IMPLANTED IN LEFT ARM ETONO GESTREL 20948076691 No Longer Active 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 OXIDATION OPERATOR Active AMOXICILLIN 500 MG TABS 2 tabs PO bid x 10 d AM OXICILLIN 59304402969 No Longer Active Kalpesh Dong MD Active LEVAQUIN 500 MG TABS 1 PO q day x 7 days LEVOFL OXACIN 10522567666 No Longer Active Shola MCGILL Active PROAIR HFA 108 (90 BASE) MCG/ACT AERS 2 puff q 4-6 hrs PRN ALBUTEROL SULFATE 66632593404 Active Shola MCGILL Acti ve FIORICET 50-325-40 MG TABS 2 PO q 8 hrs PRN FOSTER [id number] 05775969960 Active Abdirahman Rios MD Active AMITRIPTYLINE HCL 25 MG TAB 1 tab by mouth daily 60 minutes before bedtime AMITRIPTYLINE HCL 77725497292 No Longer Active Shola MCGILL Active LORTAB 5 5-500 MG TABS 1/2 to 1 tablet by mouth go ry 6 hours as needed for pain HYDROCODONE-ACETAMINOPHEN 54937941934 No Longer Active Shola MCGILL Active CEPHALEXIN 500 MG TABS Take one by mouth four times daily, morning, noon, early evening and bedtime. CEPHALEXIN 81142169593 No Long er Active Hira Moser OXIDATION OPERATOR Active TYLENOL/CODEINE #3 300-30 MG TAB 1-2 po q6hr PRN Pain ACETAMINOPHEN-CODEINE 17818643905 No Longer Active Edilberto Marino DO Active PRISTIQ 50 MG [id number] 1 po qd DESVENLAFAXI NE SUCCINATE 28908709101 No Longer Active Edilberto Marino DO Active PENICILLIN V POTASSIUM 500 MG TAB 1 four times a day 2 PENICILLIN V POTASSIUM 60468062863 No Longer Active Edilberto Marino DO Active DOXYCYCLINE HYCLATE 100 MG CAPS Take one (1) tablet by mouth twice a day DOXYCYCLINE HYCLATE 27413912278 No Longer Active Ronnie Galvan MD Active HYDROCODONE-ACETAMINOPHEN 5-325 MG TABS 1 po q 6hr PRN Pain 2011 HYDROCODONE-ACETAMINOPHEN 35997588232 No Longer Active Patri joan Perez RN Active BACTRIM DS 800-160 MG TAB 1 tab by mouth twice daily 2 TRIMETHOPRIM-SULFAMETHOXAZOLE 75662336562 No Longer Active Kalpesh Dong MD Active LORTAB 5 5-500 MG TABS 1/2 to 1 tablet by mouth go ry 4 hours as needed for pain HYDROCODONE-ACETAMINOPHEN 05063956197 No Longer Active Kalpesh Dong MD Active GENERESS FE 0.8-25 MG-MCG CHEW Take one by mouth daily NORETHIN-ETH ESTRADIOL-FE 22202843298 No Longer Active Kalpesh Dong MD Active HYDROCODONE-ACETAMINOPHEN 7.5-500 MG TABS 1-2 every 4 hours as needed HYDROCODONE-ACETAMINOPHEN 62029825004 No Longer Activ e Kalpesh Dong MD Active FERROUS SULFATE 325 (65 FE) MG TABS 1 tablet by mouth twice yung y FERROUS SULFATE 93002451093 No Longer Active Kalpesh Dong MD Active IBUPROFEN 600 MG TAB 1 po q6-8hr PRN IBUPROFEN 66450585378 No Longer Active Kalpesh Dong MD Active SPIRONOLACTONE 25 MG TAB 1 tablet by mouth daily 01/22 SPIRONOLACTONE 85804038628 No Longer Active Kalpesh Dong MD Acti ve HYDROCODONE-ACETAMINOPHEN 7.5-325 MG TABS 1 po QID PRN Pain 2011 HYDROCODONE-ACETAMINOPHEN 24250275086 No Longer Active Kalpesh Dong MD Active CLINDAMYCIN HCL 300 MG CAPS 1 po q6hr x 7 days CLINDAMYCIN HCL 01070657069 No Longer Active Edilberto Marino DO Active PREDNISONE 20 MG TAB 2 tabs daily for 4 days, 1 t ab daily for 4 days, 1/2 tab daily for 4 days PREDNISONE 13599933246 No Longer Active Edilberto Marino DO Active PERCOCET 5-325 MG TABS 1 tablet by mouth every 6 hours as ne eded for pain OXYCODONE-ACETAMINOPHEN 02354922935 No Longer Active Abdirahman Rios MD Active VITAMINS TABS Take one by mouth daily MV & MIN W/FE-FA TABS 32992120343 No Longer Active Abdirahman Rios MD Active LUIS 3-0.02 MG TABS 1 tablet by mouth daily as directed DROSPIRENONE-ETHINYL ESTRADIOL 10525857333 No Longer Active Abdirahman Rios MD Active LORATADINE 10 MG TABS 1 tablet by mouth daily L ORATADINE 32813796551 No Longer Active Kalpesh Dong MD Active HYDROCODONE-ACETAMINOPHEN 5-325 MG TABS 1 po q 6hr PRN Pain 2010 HYDROCODONE-ACETAMINOPHEN 80667462853 No Longer Active Edilberto Marino DO Active BACTRIM DS 800-160 MG TAB 1 tab by mouth twice daily 2 TRIMETHOPRIM-SULFAMETHOXAZOLE 33499791381 No Longer Active Abdirahman Rios MD Active 28-0.8 MG TABS Take one by mouth daily 09/20 VIT-FE FUMARATE-FA 10816962407 No Longer Active Abdirahman Rios MD Active CIPRO 500 MG TAB 1 tablet by mouth twice daily CIPROFLOXACIN HCL 87406667278 No Longer Active Abdirahman Rios MD Active BENADRYL 25 MG CAP 1 po q8hr PRN Congestion DIPHENHYDRAMINE HCL 44065815978 No Longer Active Abdirahman Rios MD Active ZOLOFT 50 MG TAB 1 po qd SERTRALINE HCL 215151 00612 No Longer Active Abdirahman Rios MD Active AMOXICILLIN 875 MG TABS 1 tab by mouth twice daily 201 08/09/13 AMOXICILLIN 90272673250 No Longer Active Abdirahman Rios MD Activ e AMOXICILLIN 875 MG TABS 1 tab by mouth twice daily 201 07/19/27 AMOXICILLIN 44158835417 No Longer Active Abdirahman Rios MD Activ e BACTRIM DS 800-160 MG TAB 2 tab by mouth twice daily 2 TRIMETHOPRIM-SULFAMETHOXAZOLE 59430151874 No Longer Active Abdirahman Rios MD Active KEFLEX 500 MG CAP 1 po tid x 10 days CEPHALEXIN 74600068911 No Longer Active Abdirahman Rios MD Active AMOXICILLIN 875 MG TABS 1 tab by mouth twice daily 201 07/18/07 AMOXICILLIN 25737601433 No Longer Active Abdirahman Rios MD Activ e BACTRIM DS 800-160 MG TAB 2 tab by mouth twice daily 2 BACTRIM DS 800-160 MG TAB TRIMETHOPRIM-SULFAMETHOXAZOLE Inactive ZOLOFT 50 MG TAB 1 po qd ZOLOFT 50 MG TAB 3129 41 SERTRALINE HCL Inactive BENADRYL 25 MG CAP 1 po q8hr PRN Congestion BENADRYL 25 MG CAP 3681553 DIPHENHYDRAMINE HCL Inactive 28-0.8 MG TABS Take one by mouth daily 09/20 28-0.8 MG TABS VIT-FE FUMARATE-FA Inactive HYDROCODONE-ACETAMINOPHEN 5-325 MG TABS 1 po q 6hr PRN Pain 2010 HYDROCODONE-ACETAMINOPHEN 5-325 MG TABS 471113 HYDROCODONE-ACETAMINOPHEN Inactive LORATADINE 10 MG TABS 1 tablet by mouth daily LORATADINE 10 MG TABS 230300 LORATADINE Inactive LUIS 3-0.02 MG TABS 1 tablet by mouth daily as directed LUIS 3-0.02 MG TABS DROSPIRENONE-ETHINYL ESTRADIOL Inactive VITAMINS TABS Take one by mouth daily VITAMINS TABS MV & MIN W/FE-FA TABS Inactive PERCOCET 5-325 MG TABS 1 tablet by mouth every 6 hours as ne eded for pain PERCOCET 5-325 MG TABS 7788549 OXYCODONE-ACETAMIN OPHEN Inactive PREDNISONE 20 MG TAB 2 tabs daily for 4 days, 1 t ab daily for 4 days, 1/2 tab daily for 4 days PREDNISONE 20 MG TAB 639204 PREDNISON E Inactive CLINDAMYCIN HCL 300 MG CAPS 1 po q6hr x 7 days CLINDAMYCIN HCL 300 MG CAPS 800626 CLINDAMYCIN HCL Inactive HYDROCODONE-ACETAMINOPHEN 7.5-325 MG TABS 1 po QID PRN Pain 2011 HYDROCODONE-ACETAMINOPHEN 7.5-325 MG TABS 133857 HYDROCODONE-ACETAMINOPHEN Inactive SPIRONOLACTONE 25 MG TAB 1 tablet by mouth daily 01/22 SPIRONOLACTONE 25 MG TAB 176969 SPIRONOLACTONE Inactive IBUPROFEN 600 MG TAB 1 po q6-8hr PRN IBUPROFEN 600 MG TAB 682381 IBUPROFEN Inactive FERROUS SULFATE 325 (65 FE) MG TABS 1 tablet by mouth twice yung y FERROUS SULFATE 325 (65 FE) MG TABS 324365 FERROUS SULF ATE Inactive HYDROCODONE-ACETAMINOPHEN 7.5-500 MG TABS 1-2 every 4 hours as needed HYDROCODONE-ACETAMINOPHEN 7.5-500 MG TABS 912460 HYDROCODONE-ACETAMINOPHEN Inactive GENERESS FE 0.8-25 MG-MCG CHEW [...] PRN Pain 2011 HYDROCODONE-ACETAMINOPHEN 5-325 MG TABS 028943 HYDROCODONE-ACETAMINOPHEN Inactive DOXYCYCLINE HYCLATE 100 MG CAPS Take one (1) tablet by mouth twice a day DOXYCYCLINE HYCLATE 100 MG CAPS 612871 DOXYCYCLINE HYCLATE Inactive PENICILLIN V POTASSIUM 500 MG TAB 1 four times a day 2 PENICILLIN V POTASSIUM 500 MG TAB 317101 PENICILLIN V POTASSIUM [place] PRISTIQ 50 MG [id number] 1 po qd PRISTIQ 50 MG [id number] DESVENLAFAXINE SUCCINATE Inactive TYLENOL/CODEINE #3 300-30 MG TAB 1-2 po q6hr PRN Pain TYLENOL/CODEINE #3 300-30 MG TAB 257127 ACETAMINOPHEN-CODEINE Inact krishna CEPHALEXIN 500 MG TABS Take one by mouth four times daily, morning, noon, early evening and bedtime. CEPHALEXIN 500 MG TABS 413682 CEPHALEXIN Inactive LORTAB 5 5-500 MG TABS 1/2 to 1 tablet by mouth go ry 6 hours as needed for pain LORTAB 5 5-500 MG TABS HYDROCODONE-A CETAMINOPHEN Inactive AMITRIPTYLINE HCL 25 MG TAB 1 tab by mouth daily 60 minutes before bedtime AMITRIPTYLINE HCL 25 MG TAB 858549 AMITRIPTYLINE HCL Inactive AMOXICILLIN 500 MG TABS 2 tabs PO bid x 10 d 7 AMOXICILLIN 500 MG TABS 422036 AMOXICILLIN Inactive IMPLANON 68 MG IMPL IMPLANTED IN LEFT ARM IMPLANON 68 MG IMPL ETONOGESTREL Inactive HYDROCODONE-ACETAMINOPHEN 5-325 MG TABS 1 PO tid PRN pain 5 HYDROCODONE-ACETAMINOPHEN 5-325 MG TABS 502774 HYDROCODONE-ACETAMIN OPHEN Inactive BACTRIM DS 800-160 MG TAB 1 tab by mouth twice daily 2 BACTRIM DS 800-160 MG TAB TRIMETHOPRIM-SULFAMETHOXAZOLE Inac tive CEPHALEXIN 500 MG CAPS 1 PO bid x 7 days CEPHALEXIN 500 MG CAPS 398888 CEPHALEXIN Inactive HYDROCODONE-ACETAMINOPHEN 5-325 MG TABS 1 tab by mouth every 6 hours as needed HYDROCODONE-ACETAMINOPHEN 5-325 MG TABS 825968 HYDROCODONE-ACETAMINOPHEN Inactive PROMETHAZINE-CODEINE 6.25-10 MG/5ML SYRP 1 tsp every 6 hrs prn c ough PROMETHAZINE-CODEINE 6.25-10 MG/5ML SYRP 886319 PROMETH AZINE-CODEINE Inactive IBUPROFEN 800 MG TAB 1 pill three times daily as needed for pain IBUPROFEN 800 MG TAB 408471 IBUPROFEN Inactive KEFLEX 500 MG CAP 1 tab po tid KEFLEX 500 MG CAP 311143 CEPHALEXIN Inactive HYDROCODONE-ACETAMINOPHEN 7.5-325 MG TABS 1 four times a day as needed for pain HYDROCODONE-ACETAMINOPHEN 7.5-325 MG TABS 603020 HYDROCODONE-ACETAMINOPHEN Inactive BACTRIM DS 800-160 MG TABS by mouth twice a day 11/05 BACTRIM DS 800-160 MG TABS SULFAMETHOXAZOLE-TRIMETHOPRIM Inactive AMOXICILLIN 875 MG TABS 1 tab by mouth twice daily 201 07/18/07 AMOXICILLIN 875 MG TABS 295444 AMOXICILLIN Inactive KEFLEX 500 MG CAP 1 po tid x 10 days KEFLEX 500 MG CAP 789385 CEPHALEXIN Inactive AMOXICILLIN 875 MG TABS 1 tab by mouth twice daily 201 07/19/27 AMOXICILLIN 875 MG TABS 263246 AMOXICILLIN Inactive AMOXICILLIN 875 MG TABS 1 tab by mouth twice daily 08/09/13 AMOXICILLIN 875 MG TABS 880403 AMOXICILLIN Inactive CIPRO 500 MG TAB 1 tablet by mouth twice daily CIPRO 500 MG TAB 955099 CIPROFLOXACIN HCL Inactive BACTRIM DS 800-160 MG TAB 1 tab by mouth twice daily 2 BACTRIM DS 800-160 MG TAB TRIMETHOPRIM-SULFAMETHOXAZOLE Inac tive LEVAQUIN 500 MG TABS 1 PO q day x 7 days LEVAQUIN 500 MG TABS 178372 LEVOFLOXACIN Inactive Advance Directives Directive Description Start Date PERMISSION TO SHARE Immunizations Vaccine Administration Date Value Standard Alf cription Seasonal influenza vaccine, injectable, containing preservative, for > 3 years old (Afluria, FluLaval, Fluzone, Fluvirin, Fluarix, Agriflu(>= 18 yo)) Fluzone (>3 yrs.) [[id number]] Influenza, seasonal, inject able Seasonal influenza vaccine, injectable, preservative free, for > 3 years old (Afluria, FluLaval, Fluzone, Fluvirin, Fluarix, Agriflu(>= 18 yo)) Fluzone preservative free (>3 yrs.) [[id number]] Influenza, seasonal, injectable, preservative free Seasonal influenza vaccine, injectable, containing preservative, for > 3 years old (Afluria, FluLaval, Fluzone, Fluvirin, Fluarix, Agriflu(>= 18 yo)) Fluzone (>3 yrs.) [[id number]] Influenza, seasonal, inject able Seasonal influenza vaccine, injectable, containing preservative, for > 3 years old (Afluria, FluLaval, Fluzone, Fluvirin, Fluarix, Agriflu(>= 18 yo)) Fluzone (>3 yrs.) [[id number]] Influenza, seasonal, inject able dT (Diphtheria and [...] mg/dL Chart Maintenance: Outside labs entered on [employer] - Hematology leukocyte count, blood 8.3 10*3/mm3 erythrocyte (RBC) count 5.2 10*6/mm3 hemoglobin, blood 14.2 g/dL hematocrit, blood 42.6 % mean corpuscular volume, RBC 82.4 fL mean corpuscular hemoglobin, RBC 27.5 pg red blood cell distribution width 12.9 % platelet count 316 10*3/mm3 Lab Report: CBC W/DIFF, Comp. Metabolic Panel, Thyroid Stimulating [place] ... - Chemistry sodium, serum 140 mmol/L 146-516 8416/02/24 potassium, serum 4.3 mmol/L 3.5-5.2 chloride, serum [...] Lab Report: T3, TOTAL, INSULIN - Manager Of Finance ry triiodothyronine, serum 78 ng/dL 76-181 Lab [...] mg/dL Encounters Code Encounter Date Provider Facility CPT-04233 Level 3 Est. Patient 14:11:58 CDT Kalpesh goins MD [facility] CPT-38584 Level 3 Est. Patient 16:50:00 CDT Michelle MERCADO [facility] CPT-14235 Level 3 Est. Patient 17:11:32 NET MAKER Brandie bates MD PhD [facility] CPT-98832 Level 3 Est. Patient 16:31:47 NET MAKER Shola MCGILL [facility] CPT-46533 Level 3 Est. Patient 17:51:10 NET MAKER Abhinav Galvan MD [facility] CPT-74960 Level 4 Est. Patient 12:54:56 NET MAKER Kalpesh goins MD [facility] CPT-32346 Level 4 Est. Patient 12:53:56 NET MAKER Kalpesh goins MD [facility] CPT-72732 Level 3 Est. Patient 17:56:58 CDT Shola MCGILL [facility] CPT-74968 Level 3 Est. Patient 14:26:20 CDT Janak butcher [facility] CPT-83317 Level 3 Est. Patient 09:38:41 CDT Shola Wright [facility] CPT-87738 Level 3 Est. Patient 14:45:26 CDT Edilberto tiwari [facility] CPT-88501 Level 3 Est. Patient 10:51:33 CDT Hira muniz [facility] CPT-64091 Level 3 Est. Patient 11:57:55 NET MAKER Shola Thao Adriana [facility] CPT-92728 Level 3 Est. Patient 09:53:33 NET MAKER Edilberto tiwari [facility] CPT-82492 Level 3 Est. Patient 14:42:54 NET MAKER Abhinav Galvan MD [facility] CPT-96447 Level 3 Est. Patient 15:10:02 CDT Janak ubtcher [facility] CPT-24971 Level 3 Est. Patient 15:20:20 CDT Theo dennis MD [facility] CPT-87349 Level 2 Est. Patient 14:08:57 CDT Kalpesh goins MD [facility] CPT-55048 Level 3 Est. Patient 13:56:19 CDT Abdirahman Rios MD [facility] CPT-55804 Level 3 Est. Patient 13:59:37 CDT Abdirahman Rios MD [facility] CPT-38398 Level 2 Est. Patient 14:44:59 CDT Kalpesh goins MD [facility]-64109 Level 3 Est. Patient 06:06:23 CDT Edilberto tiwari [facility] CPT-70011 Level 3 Est. Patient 15:23:54 CDT Abdirahman Rios MD [facility] CPT-81396 Level 3 Est. Patient 15:43:49 CDT Abdirahman Rios MD [facility] CPT-35390 Level 3 Est. Patient 12:46:47 NET MAKER Abdirahman Rios MD [facility] CPT-82001 Level 3 Est. Patient 08:13:35 NET MAKER Abdirahman Rios MD [facility] CPT-85022 Level 2 Est. Patient 09:36:42 NET MAKER Abdirahman Rios MD [facility] CPT-94479 Level 3 Est. Patient 10:56:43 CDT Abdirahman Rios MD [facility] CPT-88968 Level 3 Est. Patient 18:24:52 CDT Abdirahman Rios MD [facility] CPT-60368 Level 3 Est. Patient 13:27:22 CDT Abdirahman Rios MD [facility] Procedures Code Procedure Name Date Entry Date Standard Desc ription CPT-OV Office Visit 15:34:48 CDT CPT-91106 Postop F/U Visit 14:50:12 CDT CPT-24508 Postop F/U Visit 14:41:10 CDT CPT-58649 Venipuncture Draw Fee 11:38:04 NET MAKER CPT-32027 Postop F/U Visit 19:02:59 NET MAKER CPT-27692 Postop F/U Visit 12:04:54 NET MAKER CPT-49309 Administration single or combination vac cine inc oral 15:56:43 CDT CPT-12133 Influenza split virus > age 3 15:56:43 CDT CPT-27452 Hand comp min 3V 14:25:19 CDT CPT-26733 Postop F/U Visit 21:40:51 CDT CPT-20597 Postop F/U Visit 10:58:43 CDT CPT-28492 Administration single or combination vac cine inc oral 12:33:54 NET MAKER CPT-50671 Influenza Preservative Free split virus >age 3 12:33:54 NET MAKER CPT-36490 Administration single or combination vac cine inc oral 09:30:51 CDT CPT-36124 Influenza split virus > age 3 09:30:51 CDT CPT-05208 Postop F/U Visit 15:14:53 CDT CPT-37250 Postop F/U Visit 13:50:14 CDT CPT-65685 Postop F/U Visit 13:34:52 CDT CPT-OV Office Visit 16:55:03 CDT CPT-54295 [place] of cervix w bx ECC 13:32:50 CDT 10/19 CPT-J1885 Toradol 60 mg (Ketorolac) 15:31:59 CDT 2011 CPT-J1885 Toradol 60 mg (Ketorolac) 15:23:54 CDT 2011 CPT-02766 Visit 11:34:37 NET MAKER CPT-64968 Visit 10:52:39 NET MAKER CPT-40906 Visit 10:12:02 NET MAKER CPT-56345 Visit 11:22:43 NET MAKER CPT-87282 Visit 11:24:12 NET MAKER CPT-00475 Visit 10:47:05 NET MAKER CPT-OV Office Visit 10:26:16 NET MAKER CPT-OV Office Visit 15:34:31 NET MAKER CPT-08268 Visit 10:42:08 NET MAKER CPT-20104 Visit 10:52:45 NET MAKER CPT-000 Give Appropriate Flu Vaccine 16:56:41 CDT 2 CPT-93753 Administration single or combination vac cine inc oral 10:33:21 CDT CPT-39759 Influenza split virus > age 3 10:33:21 CDT CPT-17436 Visit 13:23:09 CDT CPT-40232 Visit 18:24:52 CDT CPT-87822 Sono OB comp > 14 weeks 12:07:49 CDT 04/07
--- OUTSIDE RECORDS SUMMARY | 2020-01-18 17:27 | XMS REPORT | Clinical Summary ---
Author Author Admin, Jeri Rashid Organization [facility] Address Unknown Phone Allergies, Adverse Reactions, Alerts Allergy Name Reaction Description Start Date Severity Status Pr ovider ZITHROMAX rash all over Critical Active Draya H aubrey LATEX rash Moderate Active Darya [...] 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IX 622.12 Resolved Good Juilan MD Moderate dysplasia of cervix ENCOUNTER FOR [...] by mouth twice a day 11/05 SULFAMETHOXAZOLE-TRIMETHOPRIM [id number] No Longer Active Good Julian MD Active IBUPROFEN 800 MG TABS 1 tid prn IBUPROFEN 14089326439 Active Good Julian MD Active ENDOCET 10-325 MG TABS 1 q 6 hr prn OXYCODONE-A CETAMINOPHEN 77703693215 Active Shola MCGILL Active HYDROCODONE-ACETAMINOPHEN 7.5-325 MG TABS 1 four times a day as needed for pain HYDROCODONE-ACETAMINOPHEN 68545472947 No Longer Activ crystal Julian MD Active KEFLEX 500 MG CAP 1 tab po tid CEPHALEXIN 548993 86794 No Longer Active Hira Moser APRN Active IBUPROFEN 800 MG TAB 1 pill three times daily as needed for pain IBUPROFEN 23200532795 No Longer Active Kalpesh Dong MD Active PROMETHAZINE-CODEINE 6.25-10 MG/5ML SYRP 1 tsp every 6 hrs prn c ough PROMETHAZINE-CODEINE 92428857821 No Longer Active Kalpesh Carr Active ALPRAZOLAM 0.5 MG TABS 1 PO bid PRN ALPRAZOLAM 161405 53999 Active Shola MCGILL Active HYDROCODONE-ACETAMINOPHEN 5-325 MG TABS 1 tab by mouth every 6 hours as needed HYDROCODONE-ACETAMINOPHEN 46502223257 No Longer Activ e Shola MCGILL Active CEPHALEXIN 500 MG CAPS 1 PO bid x 7 days CEPHAL EXIN 16535816982 No Longer Active Shola MCGILL Active BACTRIM DS 800-160 MG TAB 1 tab by mouth twice daily 2 TRIMETHOPRIM-SULFAMETHOXAZOLE 43519861118 No Longer Active Kalpesh Dong MD Active HYDROCODONE-ACETAMINOPHEN 5-325 MG TABS 1 PO tid PRN pain 5 HYDROCODONE-ACETAMINOPHEN 24642387056 No Longer Active Abhinav Galvan MD Active IMPLANON 68 MG IMPL IMPLANTED IN LEFT ARM ETONO GESTREL 48916467153 No Longer Active 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 HOME APPLIANCE TECHNICIAN Active AMOXICILLIN 500 MG TABS 2 tabs PO bid x 10 d AM OXICILLIN 57886228185 No Longer Active Kalpesh Dong MD Active LEVAQUIN 500 MG TABS 1 PO q day x 7 days LEVOFL OXACIN 02065737364 No Longer Active Shola MCGILL Active PROAIR HFA 108 (90 BASE) MCG/ACT AERS 2 puff q 4-6 hrs PRN ALBUTEROL SULFATE 47991463680 Active Shola MCGILL Acti ve FIORICET 50-325-40 MG TABS 2 PO q 8 hrs PRN FOSTER ADQEUKNQDM-SADD-RJMITRNL 47307249271 Active Abdirahman Rios MD Active AMITRIPTYLINE HCL 25 MG TAB 1 tab by mouth daily 60 minutes before bedtime AMITRIPTYLINE HCL 78239986773 No Longer Active Shola MCGILL Active LORTAB 5 5-500 MG TABS 1/2 to 1 tablet by mouth go ry 6 hours as needed for pain HYDROCODONE-ACETAMINOPHEN 58805134272 No Longer Active Shola MCGILL Active CEPHALEXIN 500 MG TABS Take one by mouth four times daily, morning, noon, early evening and bedtime. CEPHALEXIN 24894393764 No Long er Active Hira Moser HOME APPLIANCE TECHNICIAN Active TYLENOL/CODEINE #3 300-30 MG TAB 1-2 po q6hr PRN Pain ACETAMINOPHEN-CODEINE 10185722168 No Longer Active Edilberto Marino DO Active PRISTIQ 50 MG MF29H-YDS 1 po qd DESVENLAFAXI NE SUCCINATE 86559634313 No Longer Active Edilberto Marino DO Active PENICILLIN V POTASSIUM 500 MG TAB 1 four times a day 2 PENICILLIN V POTASSIUM 48491728580 No Longer Active Edilberto Marino DO Active DOXYCYCLINE HYCLATE 100 MG CAPS Take one (1) tablet by mouth twice a day DOXYCYCLINE HYCLATE 75380233135 No Longer Active Ronnie Galvan MD Active HYDROCODONE-ACETAMINOPHEN 5-325 MG TABS 1 po q 6hr PRN Pain 2011 HYDROCODONE-ACETAMINOPHEN 93720480630 No Longer Active Patri joan Perez RN Active BACTRIM DS 800-160 MG TAB 1 tab by mouth twice daily 2 TRIMETHOPRIM-SULFAMETHOXAZOLE 05348838360 No Longer Active Kalpesh Dong MD Active LORTAB 5 5-500 MG TABS 1/2 to 1 tablet by mouth go ry 4 hours as needed for pain HYDROCODONE-ACETAMINOPHEN 40825590691 No Longer Active Kalpesh Dong MD Active GENERESS FE 0.8-25 MG-MCG CHEW Take one by mouth daily NORETHIN-ETH ESTRADIOL-FE 50614906760 No Longer Active Kalpesh Dong MD Active HYDROCODONE-ACETAMINOPHEN 7.5-500 MG TABS 1-2 every 4 hours as needed HYDROCODONE-ACETAMINOPHEN 43253559267 No Longer Activ e Kalpesh Dong MD Active FERROUS SULFATE 325 (65 FE) MG TABS 1 tablet by mouth twice yung y FERROUS SULFATE 19042667348 No Longer Active Kalpesh Dong MD Active IBUPROFEN 600 MG TAB 1 po q6-8hr PRN IBUPROFEN 26550843254 No Longer Active Kalpesh Dong MD Active SPIRONOLACTONE 25 MG TAB 1 tablet by mouth daily 01/22 SPIRONOLACTONE 37631184542 No Longer Active Kalepsh Dong MD Acti ve HYDROCODONE-ACETAMINOPHEN 7.5-325 MG TABS 1 po QID PRN Pain 2011 HYDROCODONE-ACETAMINOPHEN 51169707241 No Longer Active Kalpesh Dong MD Active CLINDAMYCIN HCL 300 MG CAPS 1 po q6hr x 7 days CLINDAMYCIN HCL 88358473868 No Longer Active Edilberto Marino DO Active PREDNISONE 20 MG TAB 2 tabs daily for 4 days, 1 t ab daily for 4 days, 1/2 tab daily for 4 days PREDNISONE 59737366076 No Longer Active Edilberto Marino DO Active PERCOCET 5-325 MG TABS 1 tablet by mouth every 6 hours as ne eded for pain OXYCODONE-ACETAMINOPHEN 42195869576 No Longer Active Abdirahman Rios MD Active VITAMINS TABS Take one by mouth daily MV & MIN W/FE-FA TABS 83747766212 No Longer Active Abdirahman Rios MD Active LUIS 3-0.02 MG TABS 1 tablet by mouth daily as directed DROSPIRENONE-ETHINYL ESTRADIOL 71835021002 No Longer Active Abdirahman Rios MD Active LORATADINE 10 MG TABS 1 tablet by mouth daily L ORATADINE 02287665634 No Longer Active Kalpesh oDng MD Active HYDROCODONE-ACETAMINOPHEN 5-325 MG TABS 1 po q 6hr PRN Pain 2010 HYDROCODONE-ACETAMINOPHEN 75225438183 No Longer Active Edilberto Marino DO Active BACTRIM DS 800-160 MG TAB 1 tab by mouth twice daily 2 TRIMETHOPRIM-SULFAMETHOXAZOLE 82674262752 No Longer Active Abdirahman Rios MD Active 28-0.8 MG TABS Take one by mouth daily 09/20 VIT-FE FUMARATE-FA 83542130862 No Longer Active Abdirahman Rios MD Active CIPRO 500 MG TAB 1 tablet by mouth twice daily CIPROFLOXACIN HCL 29230476302 No Longer Active Abdirahman Rios MD Active BENADRYL 25 MG CAP 1 po q8hr PRN Congestion DIPHENHYDRAMINE HCL 03069930171 No Longer Active Abdirahman Rios MD Active ZOLOFT 50 MG TAB 1 po qd SERTRALINE HCL 634558 34124 No Longer Active Abdirahman Rios MD Active AMOXICILLIN 875 MG TABS 1 tab by mouth twice daily 201 08/09/13 AMOXICILLIN 88872883108 No Longer Active Abdirahman Rios MD Activ e AMOXICILLIN 875 MG TABS 1 tab by mouth twice daily 201 07/19/27 AMOXICILLIN 98530354068 No Longer Active Abdirahman Rios MD Activ e BACTRIM DS 800-160 MG TAB 2 tab by mouth twice daily 2 TRIMETHOPRIM-SULFAMETHOXAZOLE 61488287337 No Longer Active Abdirahman Rios MD Active KEFLEX 500 MG CAP 1 po tid x 10 days CEPHALEXIN 44255954368 No Longer Active Abdirahman Rios MD Active AMOXICILLIN 875 MG TABS 1 tab by mouth twice daily 201 07/18/07 AMOXICILLIN 64628077147 No Longer Active Abdirahman Rios MD Activ e BACTRIM DS 800-160 MG TAB 2 tab by mouth twice daily 2 BACTRIM DS 800-160 MG TAB TRIMETHOPRIM-SULFAMETHOXAZOLE Inactive ZOLOFT 50 MG TAB 1 po qd ZOLOFT 50 MG TAB 3129 41 SERTRALINE HCL Inactive BENADRYL 25 MG CAP 1 po q8hr PRN Congestion BENADRYL 25 MG CAP 8567866 DIPHENHYDRAMINE HCL Inactive 28-0.8 MG TABS Take one by mouth daily 09/20 28-0.8 MG TABS VIT-FE FUMARATE-FA Inactive HYDROCODONE-ACETAMINOPHEN 5-325 MG TABS 1 po q 6hr PRN Pain 2010 HYDROCODONE-ACETAMINOPHEN 5-325 MG TABS 024068 HYDROCODONE-ACETAMINOPHEN Inactive LORATADINE 10 MG TABS 1 tablet by mouth daily LORATADINE 10 MG TABS 290107 LORATADINE Inactive LUIS 3-0.02 MG TABS 1 tablet by mouth daily as directed LUIS 3-0.02 MG TABS DROSPIRENONE-ETHINYL ESTRADIOL Inactive VITAMINS TABS Take one by mouth daily VITAMINS TABS MV & MIN W/FE-FA TABS Inactive PERCOCET 5-325 MG TABS 1 tablet by mouth every 6 hours as ne eded for pain PERCOCET 5-325 MG TABS 2092837 OXYCODONE-ACETAMIN OPHEN Inactive PREDNISONE 20 MG TAB 2 tabs daily for 4 days, 1 t ab daily for 4 days, 1/2 tab daily for 4 days PREDNISONE 20 MG TAB 503999 PREDNISON E Inactive CLINDAMYCIN HCL 300 MG CAPS 1 po q6hr x 7 days CLINDAMYCIN HCL 300 MG CAPS 995740 CLINDAMYCIN HCL Inactive HYDROCODONE-ACETAMINOPHEN 7.5-325 MG TABS 1 po QID PRN Pain 2011 HYDROCODONE-ACETAMINOPHEN 7.5-325 MG TABS 635246 HYDROCODONE-ACETAMINOPHEN Inactive SPIRONOLACTONE 25 MG TAB 1 tablet by mouth daily 01/22 SPIRONOLACTONE 25 MG TAB 935872 SPIRONOLACTONE Inactive IBUPROFEN 600 MG TAB 1 po q6-8hr PRN IBUPROFEN 600 MG TAB 058426 IBUPROFEN Inactive FERROUS SULFATE 325 (65 FE) MG TABS 1 tablet by mouth twice yung y FERROUS SULFATE 325 (65 FE) MG TABS 911581 FERROUS SULF ATE Inactive HYDROCODONE-ACETAMINOPHEN 7.5-500 MG TABS 1-2 every 4 hours as needed HYDROCODONE-ACETAMINOPHEN 7.5-500 MG TABS 067139 HYDROCODONE-ACETAMINOPHEN Inactive GENERESS FE 0.8-25 MG-MCG CHEW [...] PRN Pain 2011 HYDROCODONE-ACETAMINOPHEN 5-325 MG TABS 448625 HYDROCODONE-ACETAMINOPHEN Inactive DOXYCYCLINE HYCLATE 100 MG CAPS Take one (1) tablet by mouth twice a day DOXYCYCLINE HYCLATE 100 MG CAPS 616616 DOXYCYCLINE HYCLATE Inactive PENICILLIN V POTASSIUM 500 MG TAB 1 four times a day 2 PENICILLIN V POTASSIUM 500 MG TAB 305830 PENICILLIN V POTASSIUM [place] ct[facility] PRISTIQ 50 MG [id number] 1 po qd PRISTIQ 50 MG [id number] DESVENLAFAXINE SUCCINATE Inactive TYLENOL/CODEINE #3 300-30 MG TAB 1-2 po q6hr PRN Pain TYLENOL/CODEINE #3 300-30 MG TAB 343715 ACETAMINOPHEN-CODEINE Inact krishna CEPHALEXIN 500 MG TABS Take one by mouth four times daily, morning, noon, early evening and bedtime. CEPHALEXIN 500 MG TABS 352551 CEPHALEXIN Inactive LORTAB 5 5-500 MG TABS 1/2 to 1 tablet by mouth go ry 6 hours as needed for pain LORTAB 5 5-500 MG TABS HYDROCODONE-A CETAMINOPHEN Inactive AMITRIPTYLINE HCL 25 MG TAB 1 tab by mouth daily 60 minutes before bedtime AMITRIPTYLINE HCL 25 MG TAB 281812 AMITRIPTYLINE HCL Inactive AMOXICILLIN 500 MG TABS 2 tabs PO bid x 10 d 7 AMOXICILLIN 500 MG TABS 651448 AMOXICILLIN Inactive IMPLANON 68 MG IMPL IMPLANTED IN LEFT ARM IMPLANON 68 MG IMPL ETONOGESTREL Inactive HYDROCODONE-ACETAMINOPHEN 5-325 MG TABS 1 PO tid PRN pain 5 HYDROCODONE-ACETAMINOPHEN 5-325 MG TABS 658006 HYDROCODONE-ACETAMIN OPHEN Inactive BACTRIM DS 800-160 MG TAB 1 tab by mouth twice daily 2 BACTRIM DS 800-160 MG TAB TRIMETHOPRIM-SULFAMETHOXAZOLE Inac tive CEPHALEXIN 500 MG CAPS 1 PO bid x 7 days CEPHALEXIN 500 MG CAPS 537758 CEPHALEXIN Inactive HYDROCODONE-ACETAMINOPHEN 5-325 MG TABS 1 tab by mouth every 6 hours as needed HYDROCODONE-ACETAMINOPHEN 5-325 MG TABS 555284 HYDROCODONE-ACETAMINOPHEN Inactive PROMETHAZINE-CODEINE 6.25-10 MG/5ML SYRP 1 tsp every 6 hrs prn c ough PROMETHAZINE-CODEINE 6.25-10 MG/5ML SYRP 712839 PROMETH AZINE-CODEINE Inactive IBUPROFEN 800 MG TAB 1 pill three times daily as needed for pain IBUPROFEN 800 MG TAB 743849 IBUPROFEN Inactive KEFLEX 500 MG CAP 1 tab po tid KEFLEX 500 MG CAP 756293 CEPHALEXIN Inactive HYDROCODONE-ACETAMINOPHEN 7.5-325 MG TABS 1 four times a day as needed for pain HYDROCODONE-ACETAMINOPHEN 7.5-325 MG TABS 162199 HYDROCODONE-ACETAMINOPHEN Inactive BACTRIM DS 800-160 MG TABS by mouth twice a day 11/05 BACTRIM DS 800-160 MG TABS SULFAMETHOXAZOLE-TRIMETHOPRIM Inactive AMOXICILLIN 875 MG TABS 1 tab by mouth twice daily 201 07/18/07 AMOXICILLIN 875 MG TABS 251058 AMOXICILLIN Inactive KEFLEX 500 MG CAP 1 po tid x 10 days KEFLEX 500 MG CAP 836105 CEPHALEXIN Inactive AMOXICILLIN 875 MG TABS 1 tab by mouth twice daily 201 07/19/27 AMOXICILLIN 875 MG TABS 888380 AMOXICILLIN Inactive AMOXICILLIN 875 MG TABS 1 tab by mouth twice daily 08/09/13 AMOXICILLIN 875 MG TABS 821362 AMOXICILLIN Inactive CIPRO 500 MG TAB 1 tablet by mouth twice daily CIPRO 500 MG TAB 759970 CIPROFLOXACIN HCL Inactive BACTRIM DS 800-160 MG TAB 1 tab by mouth twice daily 2 BACTRIM DS 800-160 MG TAB TRIMETHOPRIM-SULFAMETHOXAZOLE Inac tive LEVAQUIN 500 MG TABS 1 PO q day x 7 days LEVAQUIN 500 MG TABS 297716 LEVOFLOXACIN Inactive Advance Directives Directive Description Start Date PERMISSION TO SHARE Immunizations Vaccine Administration Date Value Standard Alf cription Seasonal influenza vaccine, injectable, containing preservative, for > 3 years old (Afluria, FluLaval, Fluzone, Fluvirin, Fluarix, Agriflu(>= 18 yo)) Fluzone (>3 yrs.) [[id number]] Influenza, seasonal, inject able Seasonal influenza vaccine, injectable, preservative free, for > 3 years old (Afluria, FluLaval, Fluzone, Fluvirin, Fluarix, Agriflu(>= 18 yo)) Fluzone preservative free (>3 yrs.) [[id number]] Influenza, seasonal, injectable, preservative free Seasonal influenza vaccine, injectable, containing preservative, for > 3 years old (Afluria, FluLaval, Fluzone, Fluvirin, Fluarix, Agriflu(>= 18 yo)) Fluzone (>3 yrs.) [[id number]] Influenza, seasonal, inject able Seasonal influenza vaccine, injectable, containing preservative, for > 3 years old (Afluria, FluLaval, Fluzone, Fluvirin, Fluarix, Agriflu(>= 18 yo)) Fluzone (>3 yrs.) [[id number]] Influenza, seasonal, inject able dT (Diphtheria and [...] mg/dL Chart Maintenance: Outside labs entered on [facility] - Hematology leukocyte count, blood 8.3 10*3/mm3 erythrocyte (RBC) count 5.2 10*6/mm3 hemoglobin, blood 14.2 g/dL hematocrit, blood 42.6 % mean corpuscular volume, RBC 82.4 fL mean corpuscular hemoglobin, RBC 27.5 pg red blood cell distribution width 12.9 % platelet count 316 10*3/mm3 Lab Report: CBC W/DIFF, Comp. Metabolic Panel, Thyroid Stimulating Hormo ... - Chemistry sodium, serum 140 mmol/L 545-053 8295/02/24 potassium, serum 4.3 mmol/L 3.5-5.2 chloride, serum [...] 4.3-6.0 Lab Report: T3, TOTAL, INSULIN - Admissions Director ry triiodothyronine, serum 78 ng/dL 76-181 Lab [...] mg/dL Encounters Code Encounter Date Provider Facility CPT-89150 Level 3 Est. Patient 14:11:58 CDT Kalpesh goins MD [facility] CPT-75346 Level 3 Est. Patient 16:50:00 CDT Michelle MERCADO [facility] CPT-84130 Level 3 Est. Patient 17:11:32 HARDBOARD PRESS OPERATOR Brandie bates MD PhD [facility] CPT-58326 Level 3 Est. Patient 16:31:47 HARDBOARD PRESS OPERATOR Shola MCGILL [facility] CPT-22445 Level 3 Est. Patient 17:51:10 HARDBOARD PRESS OPERATOR Abhinav Galavn MD [facility] CPT-18468 Level 4 Est. Patient 12:54:56 HARDBOARD PRESS OPERATOR Kalpesh goins MD [facility] CPT-31172 Level 4 Est. Patient 12:53:56 HARDBOARD PRESS OPERATOR Kalpesh goins MD [facility] CPT-68281 Level 3 Est. Patient 17:56:58 CDT Shola MCGILL [facility] CPT-97524 Level 3 Est. Patient 14:26:20 CDT Janak butcher [facility] CPT-31422 Level 3 Est. Patient 09:38:41 CDT Shola Wright [facility] CPT-95616 Level 3 Est. Patient 14:45:26 CDT Edilberto tiwari [facility] CPT-20462 Level 3 Est. Patient 10:51:33 CDT Hira muniz [facility] CPT-96396 Level 3 Est. Patient 11:57:55 HARDBOARD PRESS OPERATOR Shola Thao Adriana [facility] CPT-24766 Level 3 Est. Patient 09:53:33 HARDBOARD PRESS OPERATOR Edilberto tiwari [facility] CPT-92818 Level 3 Est. Patient 14:42:54 HARDBOARD PRESS OPERATOR Abhinav Galvan MD [facility] CPT-34239 Level 3 Est. Patient 15:10:02 CDT Janak butcher [facility] CPT-61035 Level 3 Est. Patient 15:20:20 CDT Theo dennis MD [facility] CPT-20341 Level 2 Est. Patient 14:08:57 CDT Kalpesh goins MD [facility] CPT-01314 Level 3 Est. Patient 13:56:19 CDT Abdirahman Rios MD [facility] CPT-29010 Level 3 Est. Patient 13:59:37 CDT Abdirahman Rios MD [facility] CPT-56558 Level 2 Est. Patient 14:44:59 CDT Kalpesh goins MD [facility]-85234 Level 3 Est. Patient 06:06:23 CDT Edilberto tiwari [facility] CPT-68276 Level 3 Est. Patient 15:23:54 CDT Abdirahman Rios MD [facility] CPT-47423 Level 3 Est. Patient 15:43:49 CDT Abdirahman Rios MD [facility] CPT-62842 Level 3 Est. Patient 12:46:47 HARDBOARD PRESS OPERATOR Abdirahman Rios MD [facility] CPT-63706 Level 3 Est. Patient 08:13:35 HARDBOARD PRESS OPERATOR Abdirahman Rios MD [facility] CPT-24792 Level 2 Est. Patient 09:36:42 HARDBOARD PRESS OPERATOR Abdirahman Rios MD [facility] CPT-06824 Level 3 Est. Patient 10:56:43 CDT Abdirahman Rios MD [facility] CPT-43374 Level 3 Est. Patient 18:24:52 CDT Abdirahman Rios MD [facility] CPT-93556 Level 3 Est. Patient 13:27:22 CDT Abdirahman Rios MD [facility] Procedures Code Procedure Name Date Entry Date Standard Desc ription CPT-OV Office Visit 15:34:48 CDT CPT-47638 Postop F/U Visit 14:50:12 CDT CPT-39401 Postop F/U Visit 14:41:10 CDT CPT-64349 Venipuncture Draw Fee 11:38:04 HARDBOARD PRESS OPERATOR CPT-42514 Postop F/U Visit 19:02:59 HARDBOARD PRESS OPERATOR CPT-60081 Postop F/U Visit 12:04:54 HARDBOARD PRESS OPERATOR CPT-20944 Administration single or combination vac cine inc oral 15:56:43 CDT CPT-74150 Influenza split virus > age 3 15:56:43 CDT CPT-16016 Hand comp min 3V 14:25:19 CDT CPT-00167 Postop F/U Visit 21:40:51 CDT CPT-43322 Postop F/U Visit 10:58:43 CDT CPT-03331 Administration single or combination vac cine inc oral 12:33:54 HARDBOARD PRESS OPERATOR CPT-05104 Influenza Preservative Free split virus >age 3 12:33:54 HARDBOARD PRESS OPERATOR CPT-85278 Administration single or combination vac cine inc oral 09:30:51 CDT CPT-73176 Influenza split virus > age 3 09:30:51 CDT CPT-41714 Postop F/U Visit 15:14:53 CDT CPT-84330 Postop F/U Visit 13:50:14 CDT CPT-69494 Postop F/U Visit 13:34:52 CDT CPT-OV Office Visit 16:55:03 CDT CPT-15821 Ayer of cervix w bx ECC 13:32:50 CDT 10/19 CPT-J1885 Toradol 60 mg (Ketorolac) 15:31:59 CDT 2011 CPT-J1885 Toradol 60 mg (Ketorolac) 15:23:54 CDT 2011 CPT-68982 Visit 11:34:37 HARDBOARD PRESS OPERATOR CPT-83810 Visit 10:52:39 HARDBOARD PRESS OPERATOR CPT-34461 Visit 10:12:02 HARDBOARD PRESS OPERATOR CPT-77051 Visit 11:22:43 HARDBOARD PRESS OPERATOR CPT-37771 Visit 11:24:12 HARDBOARD PRESS OPERATOR CPT-62365 Visit 10:47:05 HARDBOARD PRESS OPERATOR CPT-OV Office Visit 10:26:16 HARDBOARD PRESS OPERATOR CPT-OV Office Visit 15:34:31 HARDBOARD PRESS OPERATOR CPT-85973 Visit 10:42:08 HARDBOARD PRESS OPERATOR CPT-34862 Visit 10:52:45 HARDBOARD PRESS OPERATOR CPT-000 Give Appropriate Flu Vaccine 16:56:41 CDT 2 CPT-05052 Administration single or combination vac cine inc oral 10:33:21 CDT CPT-36067 Influenza split virus > age 3 10:33:21 CDT CPT-66158 Visit 13:23:09 CDT CPT-81920 Visit 18:24:52 CDT CPT-64573 Sono OB comp > 14 weeks 12:07:49 CDT 04/07
--- OUTSIDE RECORDS SUMMARY | 2020-01-18 17:27 | XMS REPORT | Clinical Summary ---
Author Author Admin, Jeri Rashid Organization [facility] Address Unknown Phone Allergies, Adverse Reactions, Alerts [...] by mouth twice a day 11/05 SULFAMETHOXAZOLE-TRIMETHOPRIM [id number] No Longer Active Good Jluian MD Active IBUPROFEN 800 MG TABS 1 tid prn IBUPROFEN 08109966764 Active Good Julian MD Active ENDOCET 10-325 MG TABS 1 q 6 hr prn OXYCODONE-A CETAMINOPHEN 70787678557 Active Shola MCGILL Active HYDROCODONE-ACETAMINOPHEN 7.5-325 MG TABS 1 four times a day as needed for pain HYDROCODONE-ACETAMINOPHEN 28127101482 No Longer Activ crystal Julian MD Active KEFLEX 500 MG CAP 1 tab po tid CEPHALEXIN 924907 73530 No Longer Active Hira Moser APRN Active IBUPROFEN 800 MG TAB 1 pill three times daily as needed for pain IBUPROFEN 22979198679 No Longer Active Kalpesh Dong MD Active PROMETHAZINE-CODEINE 6.25-10 MG/5ML SYRP 1 tsp every 6 hrs prn c ough PROMETHAZINE-CODEINE 60479332027 No Longer Active Kalpesh Carr Active ALPRAZOLAM 0.5 MG TABS 1 PO bid PRN ALPRAZOLAM 084934 66287 Active Shola MCGILL Active HYDROCODONE-ACETAMINOPHEN 5-325 MG TABS 1 tab by mouth every 6 hours as needed HYDROCODONE-ACETAMINOPHEN 30152244679 No Longer Activ e Shola MCGILL Active CEPHALEXIN 500 MG CAPS 1 PO bid x 7 days CEPHAL EXIN 36808895476 No Longer Active Shola MCGLIL Active BACTRIM DS 800-160 MG TAB 1 tab by mouth twice daily 2 TRIMETHOPRIM-SULFAMETHOXAZOLE 50441581479 No Longer Active Kalpesh Dong MD Active HYDROCODONE-ACETAMINOPHEN 5-325 MG TABS 1 PO tid PRN pain 5 HYDROCODONE-ACETAMINOPHEN 56669821095 No Longer Active Abhinav Galvan MD Active IMPLANON 68 MG IMPL IMPLANTED IN LEFT ARM ETONO GESTREL 41920519182 No Longer Active 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 DISCOVERY MANAGER Active AMOXICILLIN 500 MG TABS 2 tabs PO bid x 10 d AM OXICILLIN 61928656649 No Longer Active Kalpesh Dong MD Active LEVAQUIN 500 MG TABS 1 PO q day x 7 days LEVOFL OXACIN 58032466401 No Longer Active Shola MCGILL Active PROAIR HFA 108 (90 BASE) MCG/ACT AERS 2 puff q 4-6 hrs PRN ALBUTEROL SULFATE 06334373666 Active Shola MCGILL Acti ve FIORICET 50-325-40 MG TABS 2 PO q 8 hrs PRN FOSTER [id number] 53517319281 Active Abdirahman Rios MD Active AMITRIPTYLINE HCL 25 MG TAB 1 tab by mouth daily 60 minutes before bedtime AMITRIPTYLINE HCL 83964103156 No Longer Active Shola MCGILL Active LORTAB 5 5-500 MG TABS 1/2 to 1 tablet by mouth go ry 6 hours as needed for pain HYDROCODONE-ACETAMINOPHEN 15908868408 No Longer Active Shola MCGILL Active CEPHALEXIN 500 MG TABS Take one by mouth four times daily, morning, noon, early evening and bedtime. CEPHALEXIN 79796545518 No Long er Active Hira Moser DISCOVERY MANAGER Active TYLENOL/CODEINE #3 300-30 MG TAB 1-2 po q6hr PRN Pain ACETAMINOPHEN-CODEINE 04064481936 No Longer Active Edilberto Marino DO Active PRISTIQ 50 MG [id number] 1 po qd DESVENLAFAXI NE SUCCINATE 88896870671 No Longer Active Edilberto Marino DO Active PENICILLIN V POTASSIUM 500 MG TAB 1 four times a day 2 PENICILLIN V POTASSIUM 73640202050 No Longer Active Edilberto Marino DO Active DOXYCYCLINE HYCLATE 100 MG CAPS Take one (1) tablet by mouth twice a day DOXYCYCLINE HYCLATE 96648609421 No Longer Active Ronnie Galvan MD Active HYDROCODONE-ACETAMINOPHEN 5-325 MG TABS 1 po q 6hr PRN Pain 2011 HYDROCODONE-ACETAMINOPHEN 35375829651 No Longer Active Patri joan Perez RN Active BACTRIM DS 800-160 MG TAB 1 tab by mouth twice daily 2 TRIMETHOPRIM-SULFAMETHOXAZOLE 38189605006 No Longer Active Kalpesh Dong MD Active LORTAB 5 5-500 MG TABS 1/2 to 1 tablet by mouth go ry 4 hours as needed for pain HYDROCODONE-ACETAMINOPHEN 76070424973 No Longer Active Kalpesh Dong MD Active GENERESS FE 0.8-25 MG-MCG CHEW Take one by mouth daily NORETHIN-ETH ESTRADIOL-FE 31482688633 No Longer Active Kalpesh Dong MD Active HYDROCODONE-ACETAMINOPHEN 7.5-500 MG TABS 1-2 every 4 hours as needed HYDROCODONE-ACETAMINOPHEN 86833176829 No Longer Activ e Kalpesh Dong MD Active FERROUS SULFATE 325 (65 FE) MG TABS 1 tablet by mouth twice yung y FERROUS SULFATE 07203833614 No Longer Active Kalpesh Dong MD Active IBUPROFEN 600 MG TAB 1 po q6-8hr PRN IBUPROFEN 82419826422 No Longer Active Kalpesh Dong MD Active SPIRONOLACTONE 25 MG TAB 1 tablet by mouth daily 01/22 SPIRONOLACTONE 10112425173 No Longer Active Kalpesh Dong MD Acti ve HYDROCODONE-ACETAMINOPHEN 7.5-325 MG TABS 1 po QID PRN Pain 2011 HYDROCODONE-ACETAMINOPHEN 35300881308 No Longer Active Kalpesh Dong MD Active CLINDAMYCIN HCL 300 MG CAPS 1 po q6hr x 7 days CLINDAMYCIN HCL 13129200411 No Longer Active Edilberto Marino DO Active PREDNISONE 20 MG TAB 2 tabs daily for 4 days, 1 t ab daily for 4 days, 1/2 tab daily for 4 days PREDNISONE 72494361153 No Longer Active Edilberto Marino DO Active PERCOCET 5-325 MG TABS 1 tablet by mouth every 6 hours as ne eded for pain OXYCODONE-ACETAMINOPHEN 33702044773 No Longer Active Abdirahman Rios MD Active VITAMINS TABS Take one by mouth daily MV & MIN W/FE-FA TABS 52185256087 No Longer Active Abdirahman Rios MD Active LUIS 3-0.02 MG TABS 1 tablet by mouth daily as directed DROSPIRENONE-ETHINYL ESTRADIOL 44366169595 No Longer Active Abdirahman Rios MD Active LORATADINE 10 MG TABS 1 tablet by mouth daily L ORATADINE 56749522074 No Longer Active Kalpesh Dong MD Active HYDROCODONE-ACETAMINOPHEN 5-325 MG TABS 1 po q 6hr PRN Pain 2010 HYDROCODONE-ACETAMINOPHEN 07422165842 No Longer Active Edilberto Marino DO Active BACTRIM DS 800-160 MG TAB 1 tab by mouth twice daily 2 TRIMETHOPRIM-SULFAMETHOXAZOLE 66682910968 No Longer Active Abdirahman Rios MD Active 28-0.8 MG TABS Take one by mouth daily 09/20 VIT-FE FUMARATE-FA 86813746746 No Longer Active Abdirahman Rios MD Active CIPRO 500 MG TAB 1 tablet by mouth twice daily CIPROFLOXACIN HCL 97275782507 No Longer Active Abdirahman Rios MD Active BENADRYL 25 MG CAP 1 po q8hr PRN Congestion DIPHENHYDRAMINE HCL 97947369873 No Longer Active Abdirahman Rios MD Active ZOLOFT 50 MG TAB 1 po qd SERTRALINE HCL 763786 20877 No Longer Active Abdirahman Rios MD Active AMOXICILLIN 875 MG TABS 1 tab by mouth twice daily 201 08/09/13 AMOXICILLIN 17043366735 No Longer Active Abdirahman Rios MD Activ e AMOXICILLIN 875 MG TABS 1 tab by mouth twice daily 201 07/19/27 AMOXICILLIN 03706182655 No Longer Active Abdirahman Rios MD Activ e BACTRIM DS 800-160 MG TAB 2 tab by mouth twice daily 2 TRIMETHOPRIM-SULFAMETHOXAZOLE 99941263908 No Longer Active Abdirahman Rios MD Active KEFLEX 500 MG CAP 1 po tid x 10 days CEPHALEXIN 06802285053 No Longer Active Abdirahman Rios MD Active AMOXICILLIN 875 MG TABS 1 tab by mouth twice daily 201 07/18/07 AMOXICILLIN 42648722270 No Longer Active Abdirahman Rios MD Activ e BACTRIM DS 800-160 MG TAB 2 tab by mouth twice daily 2 BACTRIM DS 800-160 MG TAB TRIMETHOPRIM-SULFAMETHOXAZOLE Inactive ZOLOFT 50 MG TAB 1 po qd ZOLOFT 50 MG TAB 3129 41 SERTRALINE HCL Inactive BENADRYL 25 MG CAP 1 po q8hr PRN Congestion BENADRYL 25 MG CAP 2855721 DIPHENHYDRAMINE HCL Inactive 28-0.8 MG TABS Take one by mouth daily 09/20 28-0.8 MG TABS VIT-FE FUMARATE-FA Inactive HYDROCODONE-ACETAMINOPHEN 5-325 MG TABS 1 po q 6hr PRN Pain 2010 HYDROCODONE-ACETAMINOPHEN 5-325 MG TABS 146192 HYDROCODONE-ACETAMINOPHEN Inactive LORATADINE 10 MG TABS 1 tablet by mouth daily LORATADINE 10 MG TABS 944293 LORATADINE Inactive LUIS 3-0.02 MG TABS 1 tablet by mouth daily as directed LUIS 3-0.02 MG TABS DROSPIRENONE-ETHINYL ESTRADIOL Inactive VITAMINS TABS Take one by mouth daily VITAMINS TABS MV & MIN W/FE-FA TABS Inactive PERCOCET 5-325 MG TABS 1 tablet by mouth every 6 hours as ne eded for pain PERCOCET 5-325 MG TABS 9404484 OXYCODONE-ACETAMIN OPHEN Inactive PREDNISONE 20 MG TAB 2 tabs daily for 4 days, 1 t ab daily for 4 days, 1/2 tab daily for 4 days PREDNISONE 20 MG TAB 464223 PREDNISON E Inactive CLINDAMYCIN HCL 300 MG CAPS 1 po q6hr x 7 days CLINDAMYCIN HCL 300 MG CAPS 076537 CLINDAMYCIN HCL Inactive HYDROCODONE-ACETAMINOPHEN 7.5-325 MG TABS 1 po QID PRN Pain 2011 HYDROCODONE-ACETAMINOPHEN 7.5-325 MG TABS 104415 HYDROCODONE-ACETAMINOPHEN Inactive SPIRONOLACTONE 25 MG TAB 1 tablet by mouth daily 01/22 SPIRONOLACTONE 25 MG TAB 588108 SPIRONOLACTONE Inactive IBUPROFEN 600 MG TAB 1 po q6-8hr PRN IBUPROFEN 600 MG TAB 389924 IBUPROFEN Inactive FERROUS SULFATE 325 (65 FE) MG TABS 1 tablet by mouth twice yung y FERROUS SULFATE 325 (65 FE) MG TABS 459050 FERROUS SULF ATE Inactive HYDROCODONE-ACETAMINOPHEN 7.5-500 MG TABS 1-2 every 4 hours as needed HYDROCODONE-ACETAMINOPHEN 7.5-500 MG TABS 086438 HYDROCODONE-ACETAMINOPHEN Inactive GENERESS FE 0.8-25 MG-MCG CHEW [...] PRN Pain 2011 HYDROCODONE-ACETAMINOPHEN 5-325 MG TABS 870283 HYDROCODONE-ACETAMINOPHEN Inactive DOXYCYCLINE HYCLATE 100 MG CAPS Take one (1) tablet by mouth twice a day DOXYCYCLINE HYCLATE 100 MG CAPS 126201 DOXYCYCLINE HYCLATE Inactive PENICILLIN V POTASSIUM 500 MG TAB 1 four times a day 2 PENICILLIN V POTASSIUM 500 MG TAB 052953 PENICILLIN V POTASSIUM [place] ctive PRISTIQ 50 MG [id number] 1 po qd PRISTIQ 50 MG [id number] DESVENLAFAXINE SUCCINATE Inactive TYLENOL/CODEINE #3 300-30 MG TAB 1-2 po q6hr PRN Pain TYLENOL/CODEINE #3 300-30 MG TAB 020833 ACETAMINOPHEN-CODEINE Inact krishna CEPHALEXIN 500 MG TABS Take one by mouth four times daily, morning, noon, early evening and bedtime. CEPHALEXIN 500 MG TABS 329069 CEPHALEXIN Inactive LORTAB 5 5-500 MG TABS 1/2 to 1 tablet by mouth go ry 6 hours as needed for pain LORTAB 5 5-500 MG TABS HYDROCODONE-A CETAMINOPHEN Inactive AMITRIPTYLINE HCL 25 MG TAB 1 tab by mouth daily 60 minutes before bedtime AMITRIPTYLINE HCL 25 MG TAB 009118 AMITRIPTYLINE HCL Inactive AMOXICILLIN 500 MG TABS 2 tabs PO bid x 10 d 7 AMOXICILLIN 500 MG TABS 142732 AMOXICILLIN Inactive IMPLANON 68 MG IMPL IMPLANTED IN LEFT ARM IMPLANON 68 MG IMPL ETONOGESTREL Inactive HYDROCODONE-ACETAMINOPHEN 5-325 MG TABS 1 PO tid PRN pain 5 HYDROCODONE-ACETAMINOPHEN 5-325 MG TABS 594059 HYDROCODONE-ACETAMIN OPHEN Inactive BACTRIM DS 800-160 MG TAB 1 tab by mouth twice daily 2 BACTRIM DS 800-160 MG TAB TRIMETHOPRIM-SULFAMETHOXAZOLE Inac tive CEPHALEXIN 500 MG CAPS 1 PO bid x 7 days CEPHALEXIN 500 MG CAPS 502238 CEPHALEXIN Inactive HYDROCODONE-ACETAMINOPHEN 5-325 MG TABS 1 tab by mouth every 6 hours as needed HYDROCODONE-ACETAMINOPHEN 5-325 MG TABS 568265 HYDROCODONE-ACETAMINOPHEN Inactive PROMETHAZINE-CODEINE 6.25-10 MG/5ML SYRP 1 tsp every 6 hrs prn c ough PROMETHAZINE-CODEINE 6.25-10 MG/5ML SYRP 206090 PROMETH AZINE-CODEINE Inactive IBUPROFEN 800 MG TAB 1 pill three times daily as needed for pain IBUPROFEN 800 MG TAB 712709 IBUPROFEN Inactive KEFLEX 500 MG CAP 1 tab po tid KEFLEX 500 MG CAP 387837 CEPHALEXIN Inactive HYDROCODONE-ACETAMINOPHEN 7.5-325 MG TABS 1 four times a day as needed for pain HYDROCODONE-ACETAMINOPHEN 7.5-325 MG TABS 631659 HYDROCODONE-ACETAMINOPHEN Inactive BACTRIM DS 800-160 MG TABS by mouth twice a day 11/05 BACTRIM DS 800-160 MG TABS SULFAMETHOXAZOLE-TRIMETHOPRIM Inactive AMOXICILLIN 875 MG TABS 1 tab by mouth twice daily 201 07/18/07 AMOXICILLIN 875 MG TABS 415546 AMOXICILLIN Inactive KEFLEX 500 MG CAP 1 po tid x 10 days KEFLEX 500 MG CAP 293527 CEPHALEXIN Inactive AMOXICILLIN 875 MG TABS 1 tab by mouth twice daily 201 07/19/27 AMOXICILLIN 875 MG TABS 859588 AMOXICILLIN Inactive AMOXICILLIN 875 MG TABS 1 tab by mouth twice daily 08/09/13 AMOXICILLIN 875 MG TABS 253689 AMOXICILLIN Inactive CIPRO 500 MG TAB 1 tablet by mouth twice daily CIPRO 500 MG TAB 020985 CIPROFLOXACIN HCL Inactive BACTRIM DS 800-160 MG TAB 1 tab by mouth twice daily 2 BACTRIM DS 800-160 MG TAB TRIMETHOPRIM-SULFAMETHOXAZOLE Inac tive LEVAQUIN 500 MG TABS 1 PO q day x 7 days LEVAQUIN 500 MG TABS 777522 LEVOFLOXACIN Inactive Advance Directives Directive Description Start Date PERMISSION TO SHARE Immunizations Vaccine Administration Date Value Standard Alf cription Seasonal influenza vaccine, injectable, containing preservative, for > 3 years old (Afluria, FluLaval, Fluzone, Fluvirin, Fluarix, Agriflu(>= 18 yo)) Fluzone (>3 yrs.) [[id number]] Influenza, seasonal, inject able Seasonal influenza vaccine, injectable, preservative free, for > 3 years old (Afluria, FluLaval, Fluzone, Fluvirin, Fluarix, Agriflu(>= 18 yo)) Fluzone preservative free (>3 yrs.) [[id number]] Influenza, seasonal, injectable, preservative free Seasonal influenza vaccine, injectable, containing preservative, for > 3 years old (Afluria, FluLaval, Fluzone, Fluvirin, Fluarix, Agriflu(>= 18 yo)) Fluzone (>3 yrs.) [[id number]] Influenza, seasonal, inject able Seasonal influenza vaccine, injectable, containing preservative, for > 3 years old (Afluria, FluLaval, Fluzone, Fluvirin, Fluarix, Agriflu(>= 18 yo)) Fluzone (>3 yrs.) [[id number]] Influenza, seasonal, inject able dT (Diphtheria and [...] mg/dL Chart Maintenance: Outside labs entered on [email or web address] - Hematology leukocyte count, blood 8.3 10*3/mm3 erythrocyte (RBC) count 5.2 10*6/mm3 hemoglobin, blood 14.2 g/dL hematocrit, blood 42.6 % mean corpuscular volume, RBC 82.4 fL mean corpuscular hemoglobin, RBC 27.5 pg red blood cell distribution width 12.9 % platelet count 316 10*3/mm3 Lab Report: CBC W/DIFF, Comp. Metabolic Panel, Thyroid Stimulating [place] ... - Chemistry sodium, serum 140 mmol/L 827-164 6994/02/24 potassium, serum 4.3 mmol/L 3.5-5.2 chloride, serum [...] 4.3-6.0 Lab Report: T3, TOTAL, INSULIN - Courier Driver ry triiodothyronine, serum 78 ng/dL 76-181 [...] mg/dL Encounters Code Encounter Date Provider Facility CPT-85287 Level 3 Est. Patient 14:11:58 CDT Kalpesh goins MD [facility] CPT-64680 Level 3 Est. Patient 16:50:00 CDT Michelle MERCADO [facility] CPT-58441 Level 3 Est. Patient 17:11:32 SQUEEGEE OPERATOR Brandie bates MD PhD [facility] CPT-89964 Level 3 Est. Patient 16:31:47 SQUEEGEE OPERATOR Shola MCGILL [facility] CPT-50976 Level 3 Est. Patient 17:51:10 SQUEEGEE OPERATOR Abhinav Galvan MD [facility] CPT-98678 Level 4 Est. Patient 12:54:56 SQUEEGEE OPERATOR Kalpesh goins MD [facility] CPT-48092 Level 4 Est. Patient 12:53:56 SQUEEGEE OPERATOR Kalpesh goins MD [facility] CPT-41923 Level 3 Est. Patient 17:56:58 CDT Shola MCGILL [facility] CPT-63561 Level 3 Est. Patient 14:26:20 CDT Janak butcher [facility] CPT-50699 Level 3 Est. Patient 09:38:41 CDT Shola Wright [facility] CPT-42339 Level 3 Est. Patient 14:45:26 CDT Edilberto tiwari [facility] CPT-52252 Level 3 Est. Patient 10:51:33 CDT Hira muniz [facility] CPT-86828 Level 3 Est. Patient 11:57:55 SQUEEGEE OPERATOR Shola Thao Adriana [facility] CPT-69423 Level 3 Est. Patient 09:53:33 SQUEEGEE OPERATOR Edilberto tiwari [facility] CPT-94941 Level 3 Est. Patient 14:42:54 SQUEEGEE OPERATOR Abhinav Galvan MD [facility] CPT-84653 Level 3 Est. Patient 15:10:02 CDT Janak butcher [facility] CPT-83507 Level 3 Est. Patient 15:20:20 CDT Theo dennis MD [facility] CPT-28366 Level 2 Est. Patient 14:08:57 CDT Kalpesh goins MD [facility] CPT-94681 Level 3 Est. Patient 13:56:19 CDT Abdirahman Rios MD [facility] CPT-31659 Level 3 Est. Patient 13:59:37 CDT Abdirahman Rios MD [facility] CPT-18855 Level 2 Est. Patient 14:44:59 CDT Kalpesh goins MD [facility]-59707 Level 3 Est. Patient 06:06:23 CDT Edilberto tiwari [facility] CPT-48168 Level 3 Est. Patient 15:23:54 CDT Abdirahman Rios MD [facility] CPT-74194 Level 3 Est. Patient 15:43:49 CDT Abdirahman Rios MD [facility] CPT-47391 Level 3 Est. Patient 12:46:47 SQUEEGEE OPERATOR Abdirahman Rios MD [facility] CPT-52771 Level 3 Est. Patient 08:13:35 SQUEEGEE OPERATOR Abdirahman Rios MD [facility] CPT-38380 Level 2 Est. Patient 09:36:42 SQUEEGEE OPERATOR Abdirahman Rios MD [facility] CPT-25724 Level 3 Est. Patient 10:56:43 CDT Abdirahman Rios MD [facility] CPT-28010 Level 3 Est. Patient 18:24:52 CDT Abdirahman Rios MD [facility] CPT-71012 Level 3 Est. Patient 13:27:22 CDT Abdirahman Rios MD [facility] Procedures Code Procedure Name Date Entry Date Standard Desc ription CPT-OV Office Visit 15:34:48 CDT CPT-71935 Postop F/U Visit 14:50:12 CDT CPT-20816 Postop F/U Visit 14:41:10 CDT CPT-51788 Venipuncture Draw Fee 11:38:04 SQUEEGEE OPERATOR CPT-92180 Postop F/U Visit 19:02:59 SQUEEGEE OPERATOR CPT-42070 Postop F/U Visit 12:04:54 SQUEEGEE OPERATOR CPT-74349 Administration single or combination vac cine inc oral 15:56:43 CDT CPT-02154 Influenza split virus > age 3 15:56:43 CDT CPT-95936 Hand comp min 3V 14:25:19 CDT CPT-21373 Postop F/U Visit 21:40:51 CDT CPT-61310 Postop F/U Visit 10:58:43 CDT CPT-01999 Administration single or combination vac cine inc oral 12:33:54 SQUEEGEE OPERATOR CPT-06659 Influenza Preservative Free split virus >age 3 12:33:54 SQUEEGEE OPERATOR CPT-43968 Administration single or combination vac cine inc oral 09:30:51 CDT CPT-59574 Influenza split virus > age 3 09:30:51 CDT CPT-27866 Postop F/U Visit 15:14:53 CDT CPT-27743 Postop F/U Visit 13:50:14 CDT CPT-45295 Postop F/U Visit 13:34:52 CDT CPT-OV Office Visit 16:55:03 CDT CPT-95151 [place] of cervix w bx ECC 13:32:50 CDT 10/19 CPT-J1885 Toradol 60 mg (Ketorolac) 15:31:59 CDT 2011 CPT-J1885 Toradol 60 mg (Ketorolac) 15:23:54 CDT 2011 CPT-31784 Visit 11:34:37 SQUEEGEE OPERATOR CPT-27776 Visit 10:52:39 SQUEEGEE OPERATOR CPT-93947 Visit 10:12:02 SQUEEGEE OPERATOR CPT-91779 Visit 11:22:43 SQUEEGEE OPERATOR CPT-84100 Visit 11:24:12 SQUEEGEE OPERATOR CPT-09751 Visit 10:47:05 SQUEEGEE OPERATOR CPT-OV Office Visit 10:26:16 SQUEEGEE OPERATOR CPT-OV Office Visit 15:34:31 SQUEEGEE OPERATOR CPT-70358 Visit 10:42:08 SQUEEGEE OPERATOR CPT-00033 Visit 10:52:45 SQUEEGEE OPERATOR CPT-000 Give Appropriate Flu Vaccine 16:56:41 CDT 2 CPT-27621 Administration single or combination vac cine inc oral 10:33:21 CDT CPT-97325 Influenza split virus > age 3 10:33:21 CDT CPT-57841 Visit 13:23:09 CDT CPT-30345 Visit 18:24:52 CDT CPT-78570 Sono OB comp > 14 weeks 12:07:49 CDT 04/07
--- OUTSIDE RECORDS SUMMARY | 2020-01-18 17:28 | XMS REPORT | Clinical Summary ---
[...] daily to affected area 2013 LIDOCAINE (ANORECTAL) [id number] No Longer Active Hira muniz APRN Active HYDROCODONE-ACETAMINOPHEN 5-325 MG TABS 2 tablets by m outh every 8 hours as needed for pain HYDROCODONE-ACETAMINOPHEN [id number] Acti ve Jillina Frazell [employer] Active HYDROCODONE-ACETAMINOPHEN 10-325 MG TABS 1 by mouth ev chaka 8 hours as needed for pain HYDROCODONE-ACETAMINOPHEN 61909929699 No Longer Active Jillina Frazell [employer] Active PERCOCET 5-325 MG TAB 1 every 6 hours as needed OXYCODONE-ACETAMINOPHEN 78156600611 Active Jillina Frazell [employer] Active LORATADINE 10 MG TABS 1 tablet by mouth daily L ORATADINE 17744835780 No Longer Active Jillina Frazell [employer] Active DIFLUCAN 150 MG TAB 1 qODay x 2 doses FLUCONAZO LE 80607352975 No Longer Active Jillina Frazell [employer] Active CYCLOBENZAPRINE HCL 10 MG TABS 1/2 - 1 tab PO tid PRN back p ain, muscle spasm CYCLOBENZAPRINE HCL 69301229902 No Longer Active Karen herson Frazell [employer] Active AUGMENTIN 875-125 MG TAB 1 tab by mouth twice daily with food 20 22/05/07 AMOXICILLIN-POT CLAVULANATE 53417822674 No Longer Active Loida Rios MD Active MOBIC 15 MG TABS 1 tab daily MELOXICAM 794427727 14 No Longer Active Abdirahman Rios MD Active PERCOCET 7.5-325 MG TABS 1 PO tid PRN pain OXYCODONE-ACETAMINOPHEN 07688958949 No Longer Active Abdirahman Rios MD Active LIDODERM 5 % PTCH One patch to painful area MO N. On for 12 hrs, off for 12 hrs. LIDOCAINE 74956356366 No Longer Active Abdirahman Rios MD Active PERCOCET 7.5-325 MG TABS 1 PO q 8 hrs PRN pain OXYCODONE-ACETAMINOPHEN 22041757970 No Longer Active Shola MCGILL Active HYDROCODONE-ACETAMINOPHEN 7.5-325 MG TABS 1 by mouth e very 6 hours as needed for pain HYDROCODONE-ACETAMINOPHEN 27397289360 No Longer Active Good Julian MD Active CLINDAMYCIN HCL 300 MG CAPS 1 po QID x 7 days CLINDAMYCIN HCL 93095965845 No Longer Active Abdirahman Rios MD Activ e BACTRIM DS 800-160 MG TABS 1 po BID x 7 days 5 SULFAMETHOXAZOLE-TRIMETHOPRIM 65935922447 No Longer Active Abdirahman Rios MD Active ENDOCET 10-325 MG TABS 1 q 6 hr prn OXYCODONE-ACETAMINOPHEN 09839865990 No Longer Active Abdirahman Rios MD Active IBUPROFEN 800 MG TABS 1 tid prn IBUPROFEN 199710 55774 No Longer Active Abdirahman Rios MD Active BACTRIM DS 800-160 MG TABS by mouth twice a day 11/05 SULFAMETHOXAZOLE-TRIMETHOPRIM 74785317436 No Longer Active Good Julian MD Active HYDROCODONE-ACETAMINOPHEN 7.5-325 MG TABS 1 four times a day as needed for pain HYDROCODONE-ACETAMINOPHEN 64491260235 No Longer Activ e Good Julian MD Active KEFLEX 500 MG CAP 1 tab po tid CEPHALEXIN 114342 25307 No Longer Active Hira Moser APRN Active IBUPROFEN 800 MG TAB 1 pill three times daily as needed for pain IBUPROFEN 28653287422 No Longer Active Kalpesh Dong MD Active PROMETHAZINE-CODEINE 6.25-10 MG/5ML SYRP 1 tsp every 6 hrs prn c ough PROMETHAZINE-CODEINE 76079535677 No Longer Active Kalpesh Carr Active ALPRAZOLAM 0.5 MG TABS 1 PO bid PRN ALPRAZOLAM 649786 49721 Active Edilberto Marino DO Active HYDROCODONE-ACETAMINOPHEN 5-325 MG TABS 1 tab by mouth every 6 hours as needed HYDROCODONE-ACETAMINOPHEN 62604473535 No Longer Activ e Shola MCGILL Active CEPHALEXIN 500 MG CAPS 1 PO bid x 7 days CEPHAL EXIN 49886020649 No Longer Active Shola MCGILL Active BACTRIM DS 800-160 MG TAB 1 tab by mouth twice daily 2 TRIMETHOPRIM-SULFAMETHOXAZOLE 52075280138 No Longer Active Kalpesh Dong MD Active HYDROCODONE-ACETAMINOPHEN 5-325 MG TABS 1 PO tid PRN pain 5 HYDROCODONE-ACETAMINOPHEN 72841873156 No Longer Active Abhinav Galvan MD Active IMPLANON 68 MG IMPL IMPLANTED IN LEFT ARM ETONO GESTREL 71346506071 No Longer Active 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 [employer] Active AMOXICILLIN 500 MG TABS 2 tabs PO bid x 10 d AM OXICILLIN 47416299134 No Longer Active Kalpesh Dong MD Active LEVAQUIN 500 MG TABS 1 PO q day x 7 days LEVOFL OXACIN 32361175163 No Longer Active Shola MCGILL Active PROAIR HFA 108 (90 BASE) MCG/ACT AERS 2 puff q 4-6 hrs PRN ALBUTEROL SULFATE 57737161176 Active Edilberto Marino DO Active FIORICET 50-325-40 MG TABS 2 PO q 8 hrs PRN FOSTER [id number] Active Shola MCGILL Active AMITRIPTYLINE HCL 25 MG TAB 1 tab by mouth daily 60 minutes before bedtime AMITRIPTYLINE HCL 11712878336 No Longer Active Shola MCGILL Active LORTAB 5 5-500 MG TABS 1/2 to 1 tablet by mouth go ry 6 hours as needed for pain HYDROCODONE-ACETAMINOPHEN 03473976223 No Longer Active Shola MCGILL Active CEPHALEXIN 500 MG TABS Take one by mouth four times daily, morning, noon, early evening and bedtime. CEPHALEXIN 57033910076 No Long er Active Hira Joyjanee [employer] [place] [employer] Active TYLENOL/CODEINE #3 300-30 MG TAB 1-2 po q6hr PRN Pain ACETAMINOPHEN-CODEINE 26545049816 No Longer Active Edilberto Marino DO Active PRISTIQ 50 MG [id number] 1 po qd DESVENLAFAXI NE SUCCINATE 61666009229 No Longer Active Edilberto Marino DO Active PENICILLIN V POTASSIUM 500 MG TAB 1 four times a day 2 PENICILLIN V POTASSIUM 76541066454 No Longer Active Edilberto Marino DO Active DOXYCYCLINE HYCLATE 100 MG CAPS Take one (1) tablet by mouth twice a day DOXYCYCLINE HYCLATE 96153971769 No Longer Active Ronnie Galvan MD Active HYDROCODONE-ACETAMINOPHEN 5-325 MG TABS 1 po q 6hr PRN Pain 2011 HYDROCODONE-ACETAMINOPHEN 76182871041 No Longer Active Patri joan Perez RN Active BACTRIM DS 800-160 MG TAB 1 tab by mouth twice daily 2 TRIMETHOPRIM-SULFAMETHOXAZOLE 76400440419 No Longer Active Kalpesh Dong MD Active LORTAB 5 5-500 MG TABS 1/2 to 1 tablet by mouth go ry 4 hours as needed for pain HYDROCODONE-ACETAMINOPHEN 62059366339 No Longer Active Kalpesh Dong MD Active GENERESS FE 0.8-25 MG-MCG CHEW Take one by mouth daily NORETHIN-ETH ESTRADIOL-FE 38360003863 No Longer Active Kalpesh Dong MD Active HYDROCODONE-ACETAMINOPHEN 7.5-500 MG TABS 1-2 every 4 hours as needed HYDROCODONE-ACETAMINOPHEN 76630657344 No Longer Activ e Kalpesh Dong MD Active FERROUS SULFATE 325 (65 FE) MG TABS 1 tablet by mouth twice yung y FERROUS SULFATE 05790794919 No Longer Active Kalpesh Dong MD Active IBUPROFEN 600 MG TAB 1 po q6-8hr PRN IBUPROFEN 72811638720 No Longer Active Kalpesh Dong MD Active SPIRONOLACTONE 25 MG TAB 1 tablet by mouth daily 01/22 SPIRONOLACTONE 97632704898 No Longer Active Kalpesh Dong MD Acti ve HYDROCODONE-ACETAMINOPHEN 7.5-325 MG TABS 1 po QID PRN Pain 2011 HYDROCODONE-ACETAMINOPHEN 55460278580 No Longer Active Kalpesh Dong MD Active CLINDAMYCIN HCL 300 MG CAPS 1 po q6hr x 7 days CLINDAMYCIN HCL 59612869988 No Longer Active Edilberto Marino DO Active PREDNISONE 20 MG TAB 2 tabs daily for 4 days, 1 t ab daily for 4 days, 1/2 tab daily for 4 days PREDNISONE 97859107209 No Longer Active Edilberto Marino DO Active PERCOCET 5-325 MG TABS 1 tablet by mouth every 6 hours as ne eded for pain OXYCODONE-ACETAMINOPHEN 18310707760 No Longer Active Abdirahman Rios MD Active VITAMINS TABS Take one by mouth daily MV & MIN W/FE-FA TABS 49649038802 No Longer Active Abdirahman Rios MD Active LUIS 3-0.02 MG TABS 1 tablet by mouth daily as directed DROSPIRENONE-ETHINYL ESTRADIOL 48766498278 No Longer Active Abdirahman Rios MD Active LORATADINE 10 MG TABS 1 tablet by mouth daily L ORATADINE 14954011674 No Longer Active Kalpesh Dong MD Active HYDROCODONE-ACETAMINOPHEN 5-325 MG TABS 1 po q 6hr PRN Pain 2010 HYDROCODONE-ACETAMINOPHEN 53483577040 No Longer Active Edilberto Marino DO Active BACTRIM DS 800-160 MG TAB 1 tab by mouth twice daily 2 TRIMETHOPRIM-SULFAMETHOXAZOLE 66363320217 No Longer Active Abdirahman Rios MD Active 28-0.8 MG TABS Take one by mouth daily 09/20 VIT-FE FUMARATE-FA 77655513400 No Longer Active Abdirahman Rios MD Active CIPRO 500 MG TAB 1 tablet by mouth twice daily CIPROFLOXACIN HCL 47978587261 No Longer Active Abdirahman Rios MD Active BENADRYL 25 MG CAP 1 po q8hr PRN Congestion DIPHENHYDRAMINE HCL 65681990652 No Longer Active Abdirahman Rios MD Active ZOLOFT 50 MG TAB 1 po qd SERTRALINE HCL 838964 17789 No Longer Active Abdirahman Rios MD Active AMOXICILLIN 875 MG TABS 1 tab by mouth twice daily 201 08/09/13 AMOXICILLIN 25725735820 No Longer Active Abdirahman Rios MD Activ e AMOXICILLIN 875 MG TABS 1 tab by mouth twice daily 201 07/19/27 AMOXICILLIN 16777101390 No Longer Active Abdirahman Rios MD Activ e BACTRIM DS 800-160 MG TAB 2 tab by mouth twice daily 2 TRIMETHOPRIM-SULFAMETHOXAZOLE 52818717099 No Longer Active Abdirahman Rios MD Active KEFLEX 500 MG CAP 1 po tid x 10 days CEPHALEXIN 59290383519 No Longer Active Abdirahman Rios MD Active AMOXICILLIN 875 MG TABS 1 tab by mouth twice daily 201 07/18/07 AMOXICILLIN 37320308323 No Longer Active Abdirahman Rios MD Activ e BACTRIM DS 800-160 MG TAB 2 tab by mouth twice daily 2 BACTRIM DS 800-160 MG TAB TRIMETHOPRIM-SULFAMETHOXAZOLE Inactive ZOLOFT 50 MG TAB 1 po qd ZOLOFT 50 MG TAB 3129 41 SERTRALINE HCL Inactive BENADRYL 25 MG CAP 1 po q8hr PRN Congestion BENADRYL 25 MG CAP 1256930 DIPHENHYDRAMINE HCL Inactive 28-0.8 MG TABS Take one by mouth daily 09/20 28-0.8 MG TABS VIT-FE FUMARATE-FA Inactive HYDROCODONE-ACETAMINOPHEN 5-325 MG TABS 1 po q 6hr PRN Pain 2010 HYDROCODONE-ACETAMINOPHEN 5-325 MG TABS 326364 HYDROCODONE-ACETAMINOPHEN Inactive LORATADINE 10 MG TABS 1 tablet by mouth daily LORATADINE 10 MG TABS 315860 LORATADINE Inactive LUIS 3-0.02 MG TABS 1 tablet by mouth daily as directed LUIS 3-0.02 MG TABS DROSPIRENONE-ETHINYL ESTRADIOL Inactive VITAMINS TABS Take one by mouth daily VITAMINS TABS MV & MIN W/FE-FA TABS Inactive PERCOCET 5-325 MG TABS 1 tablet by mouth every 6 hours as ne eded for pain PERCOCET 5-325 MG TABS 5172642 OXYCODONE-ACETAMIN OPHEN Inactive PREDNISONE 20 MG TAB 2 tabs daily for 4 days, 1 t ab daily for 4 days, 1/2 tab daily for 4 days PREDNISONE 20 MG TAB 787700 PREDNISON E Inactive CLINDAMYCIN HCL 300 MG CAPS 1 po q6hr x 7 days CLINDAMYCIN HCL 300 MG CAPS 265009 CLINDAMYCIN HCL Inactive HYDROCODONE-ACETAMINOPHEN 7.5-325 MG TABS 1 po QID PRN Pain 2011 HYDROCODONE-ACETAMINOPHEN 7.5-325 MG TABS 885184 HYDROCODONE-ACETAMINOPHEN Inactive SPIRONOLACTONE 25 MG TAB 1 tablet by mouth daily 01/22 SPIRONOLACTONE 25 MG TAB 104504 SPIRONOLACTONE Inactive IBUPROFEN 600 MG TAB 1 po q6-8hr PRN IBUPROFEN 600 MG TAB 963085 IBUPROFEN Inactive FERROUS SULFATE 325 (65 FE) MG TABS 1 tablet by mouth twice yung y FERROUS SULFATE 325 (65 FE) MG TABS 100799 FERROUS SULF ATE Inactive HYDROCODONE-ACETAMINOPHEN 7.5-500 MG [...] PRN Pain 2011 HYDROCODONE-ACETAMINOPHEN 5-325 MG TABS 005269 HYDROCODONE-ACETAMINOPHEN Inactive DOXYCYCLINE HYCLATE 100 MG CAPS Take one (1) tablet by mouth twice a day DOXYCYCLINE HYCLATE 100 MG CAPS 717173 DOXYCYCLINE HYCLATE Inactive PENICILLIN V POTASSIUM 500 MG TAB 1 four times a day 2 PENICILLIN V POTASSIUM 500 MG TAB 427759 PENICILLIN V POTASSIUM [place] ctive PRISTIQ 50 MG [id number] 1 po qd PRISTIQ 50 MG [id number] DESVENLAFAXINE SUCCINATE Inactive TYLENOL/CODEINE #3 300-30 MG TAB 1-2 po q6hr PRN Pain TYLENOL/CODEINE #3 300-30 MG TAB 524418 ACETAMINOPHEN-CODEINE Inact krishna CEPHALEXIN 500 MG TABS Take one by mouth four times daily, morning, noon, early evening and bedtime. CEPHALEXIN 500 MG TABS 717421 CEPHALEXIN Inactive LORTAB 5 5-500 MG TABS 1/2 to 1 tablet by mouth go ry 6 hours as needed for pain LORTAB 5 5-500 MG TABS HYDROCODONE-A CETAMINOPHEN Inactive AMITRIPTYLINE HCL 25 MG TAB 1 tab by mouth daily 60 minutes before bedtime AMITRIPTYLINE HCL 25 MG TAB 765151 AMITRIPTYLINE HCL Inactive AMOXICILLIN 500 MG TABS 2 tabs PO bid x 10 d 7 AMOXICILLIN 500 MG TABS 856486 AMOXICILLIN Inactive IMPLANON 68 MG IMPL IMPLANTED IN LEFT ARM IMPLANON 68 MG IMPL ETONOGESTREL Inactive HYDROCODONE-ACETAMINOPHEN 5-325 MG TABS 1 PO tid PRN pain 5 HYDROCODONE-ACETAMINOPHEN 5-325 MG TABS 223706 HYDROCODONE-ACETAMIN OPHEN Inactive BACTRIM DS 800-160 MG TAB 1 tab by mouth twice daily 2 BACTRIM DS 800-160 MG TAB TRIMETHOPRIM-SULFAMETHOXAZOLE Inac tive CEPHALEXIN 500 MG CAPS 1 PO bid x 7 days CEPHALEXIN 500 MG CAPS 153876 CEPHALEXIN Inactive HYDROCODONE-ACETAMINOPHEN 5-325 MG TABS 1 tab by mouth every 6 hours as needed HYDROCODONE-ACETAMINOPHEN 5-325 MG TABS 360658 HYDROCODONE-ACETAMINOPHEN Inactive PROMETHAZINE-CODEINE 6.25-10 MG/5ML SYRP 1 tsp every 6 hrs prn c ough PROMETHAZINE-CODEINE 6.25-10 MG/5ML SYRP 232730 PROMETH AZINE-CODEINE Inactive IBUPROFEN 800 MG TAB 1 pill three times daily as needed for pain IBUPROFEN 800 MG TAB 268001 IBUPROFEN Inactive KEFLEX 500 MG CAP 1 tab po tid KEFLEX 500 MG CAP 980424 CEPHALEXIN Inactive HYDROCODONE-ACETAMINOPHEN 7.5-325 MG TABS 1 four times a day as needed for pain HYDROCODONE-ACETAMINOPHEN 7.5-325 MG TABS 257954 HYDROCODONE-ACETAMINOPHEN Inactive BACTRIM DS 800-160 MG TABS by mouth twice a day 11/05 BACTRIM DS 800-160 MG TABS SULFAMETHOXAZOLE-TRIMETHOPRIM Inactive IBUPROFEN 800 MG TABS 1 tid prn IBUPROFEN 800 MG TABS 872051 IBUPROFEN Inactive ENDOCET 10-325 MG TABS 1 q 6 hr prn ENDOC ET 10-325 MG TABS 2721404 OXYCODONE-ACETAMINOPHEN Inactive HYDROCODONE-ACETAMINOPHEN 7.5-325 MG TABS 1 by mouth e very 6 hours as needed for pain HYDROCODONE-ACETAMINOPHEN 7.5-325 MG TABS 879392 HYDROCODONE-ACETAMINOPHEN Inactive PERCOCET 7.5-325 MG TABS 1 PO q 8 hrs PRN pain PERCOCET 7.5-325 MG TABS 8474584 OXYCODONE-ACETAMINOPHEN Inactive LIDODERM 5 % PTCH One patch to painful area MO N. On for 12 hrs, off for 12 hrs. LIDODERM 5 % PTCH 3933465 LIDOCAINE Inactiv e PERCOCET 7.5-325 MG TABS 1 PO tid PRN pain PERCOCET 7.5- 325 MG TABS 3209795 OXYCODONE-ACETAMINOPHEN Inactive MOBIC 15 MG TABS 1 tab daily MOBIC 15 MG TABS 15 2695 MELOXICAM Inactive CYCLOBENZAPRINE HCL 10 MG TABS 1/2 - 1 tab PO tid PRN back p ain, muscle spasm CYCLOBENZAPRINE HCL 10 MG TABS 526682 CYCLOBENZA JOSEPH HCL Inactive LORATADINE 10 MG TABS 1 tablet by mouth daily LORATADINE 10 MG TABS 534469 LORATADINE Inactive HYDROCODONE-ACETAMINOPHEN 10-325 MG TABS 1 by mouth ev chaka 8 hours as needed for pain HYDROCODONE-ACETAMINOPHEN 10-325 MG TABS 275593 HYDROCODONE-ACETAMINOPHEN Inactive LC-5 LIDOCAINE 5 % CREA apply 1 time daily to affected area 2013 LC-5 LIDOCAINE 5 % CREA LIDOCAINE (ANORECTAL) In active AMOXICILLIN 875 MG TABS 1 tab by mouth twice daily 201 07/18/07 AMOXICILLIN 875 MG TABS 614602 AMOXICILLIN Inactive KEFLEX 500 MG CAP 1 po tid x 10 days KEFLEX 500 MG CAP 301465 CEPHALEXIN Inactive AMOXICILLIN 875 MG TABS 1 tab by mouth twice daily 201 07/19/27 AMOXICILLIN 875 MG TABS 688937 AMOXICILLIN Inactive AMOXICILLIN 875 MG TABS 1 tab by mouth twice daily 201 08/09/13 AMOXICILLIN 875 MG TABS 592006 AMOXICILLIN Inactive CIPRO 500 MG TAB 1 tablet by mouth twice daily CIPRO 500 MG TAB 951268 CIPROFLOXACIN HCL Inactive BACTRIM DS 800-160 MG TAB 1 tab by mouth twice daily 2 BACTRIM DS 800-160 MG TAB TRIMETHOPRIM-SULFAMETHOXAZOLE Inac tive LEVAQUIN 500 MG TABS 1 PO q day x 7 days LEVAQUIN 500 MG TABS 362096 LEVOFLOXACIN Inactive CLINDAMYCIN HCL 300 MG CAPS 1 po QID x 7 days CLINDAMYCIN HCL 300 MG CAPS 909804 CLINDAMYCIN HCL Inactive AUGMENTIN 875-125 MG TAB 1 tab by mouth twice daily with food 22/05/07 AUGMENTIN 875-125 MG TAB 449216 AMOXICILLIN-POT [place] Inactive DIFLUCAN 150 MG TAB 1 qODay x 2 doses DIFLUCAN 150 MG TAB 023897 FLUCONAZOLE Inactive Advance Directives Directive Description Start Date PERMISSION TO SHARE Immunizations Vaccine Administration Date Value Standard Alf cription Seasonal influenza vaccine, injectable, containing preservative, for > 3 years old (Afluria, FluLaval, Fluzone, Fluvirin, Fluarix, Agriflu(>= 18 yo)) Fluzone (>3 yrs.) [[id number]] Influenza, seasonal, inject able Seasonal influenza vaccine, injectable, preservative free, for > 3 years old (Afluria, FluLaval, Fluzone, Fluvirin, Fluarix, Agriflu(>= 18 yo)) Fluzone preservative free (>3 yrs.) [[id number]] Influenza, seasonal, injectable, preservative free Seasonal influenza vaccine, injectable, containing preservative, for > 3 years old (Afluria, FluLaval, Fluzone, Fluvirin, Fluarix, Agriflu(>= 18 yo)) Fluzone (>3 yrs.) [[id number]] Influenza, seasonal, inject able Seasonal influenza vaccine, injectable, containing preservative, for > 3 years old (Afluria, FluLaval, Fluzone, Fluvirin, Fluarix, Agriflu(>= 18 yo)) Fluzone (>3 yrs.) [[id number]] Influenza, seasonal, inject able dT (Diphtheria and [...] ... - Chemistry sodium, serum 140 mmol/L 548-990 8087/02/24 potassium, serum 4.3 mmol/L 3.5-5.2 chloride, serum [...] 4.3-6.0 Lab Report: T3, TOTAL, INSULIN - [employer] ry triiodothyronine (T3), serum 78 ng/dL 76-181 Office Visit: low blood sugars - Chemis try cholesterol, target level 200 mg/dL triglyceride, target level 200 mg/dL HDL cholesterol, serum, target level 35 mg/dL LDL target level 100 mg/dL Encounters Code Encounter Date Provider Facility CPT-68781 Level 3 Est. Patient 14:03:08 HIDE SHAKER Abdirahman Rios MD [facility] CPT-00531 Level 3 Est. Patient 18:12:34 CDT Shola Wright [facility] CPT-52232 Level 3 Est. Patient 19:34:46 CDT Shola Wright [facility] CPT-01701 Level 3 Est. Patient 14:19:37 CDT Abdirahman Rios MD [facility] CPT-65792 Level 3 Est. Patient 14:11:58 CDT Kalpesh goins MD [facility] CPT-45452 Level 3 Est. Patient 16:50:00 [facility] Level 3 Est. Patient 17:11:32 HIDE SHAKER Brandie bates MD PhD [facility] CPT-15621 Level 3 Est. Patient 16:31:47 HIDE SHAKER Shola Wright [facility] CPT-07076 Level 3 Est. Patient 17:51:10 HIDE SHAKER Abhinav Galvan MD [facility] CPT-94434 Level 4 Est. Patient 12:54:56 HIDE SHAKER Kalpesh goins MD [facility] CPT-84091 Level 4 Est. Patient 12:53:56 HIDE SHAKER Kalpesh goins MD [facility] CPT-05881 Level 3 Est. Patient 17:56:58 CDT Shola Wright [facility] CPT-26903 Level 3 Est. Patient 14:26:20 CDT Janak butcher [facility] CPT-57655 Level 3 Est. Patient 09:38:41 CDT Shola Keesha [facility] CPT-61101 Level 3 Est. Patient 14:45:26 CDT Edilberto tiwari [facility] CPT-29921 Level 3 Est. Patient 10:51:33 [facility] Level 3 Est. Patient 11:57:55 HIDE SHAKER Shola Thao [facility] CPT-65806 Level 3 Est. Patient 09:53:33 HIDE SHAKER Edilberto tiwari [facility] CPT-30514 Level 3 Est. Patient 14:42:54 HIDE SHAKER Abhinav Galvan MD [facility] CPT-64803 Level 3 Est. Patient 15:10:02 CDT Janak butcher [facility] CPT-37434 Level 3 Est. Patient 15:20:20 CDT Theo dennis MD [facility] CPT-45938 Level 2 Est. Patient 14:08:57 CDT Kalpesh goins MD [facility] CPT-29232 Level 3 Est. Patient 13:56:19 CDT Abdirahman Rios MD [facility] CPT-23600 Level 3 Est. Patient 13:59:37 CDT Abdirahman Rios MD [facility] CPT-79919 Level 2 Est. Patient 14:44:59 CDT Kalpesh goins MD [facility]-82792 Level 3 Est. Patient 06:06:23 CDT Edilberto tiwari [facility] CPT-70055 Level 3 Est. Patient 15:23:54 CDT Abdirahman Rios MD [facility] CPT-17789 Level 3 Est. Patient 15:43:49 CDT Abdirahman Rios MD [facility] CPT-26423 Level 3 Est. Patient 12:46:47 HIDE SHAKER Abdirahman Rios MD [facility] CPT-66457 Level 3 Est. Patient 08:13:35 HIDE SHAKER Abdirahman Rios MD [facility] CPT-62316 Level 2 Est. Patient 09:36:42 HIDE SHAKER Abdirahman Rios MD [facility] CPT-04820 Level 3 Est. Patient 10:56:43 CDT Abdirahman Rios MD [facility] CPT-27364 Level 3 Est. Patient 18:24:52 CDT Abdirahman Rios MD [facility] CPT-83469 Level 3 Est. Patient 13:27:22 CDT Abdirahman Rios MD [facility] Procedures Code Procedure Name Date Entry Date Standard Desc ription CPT-59528 Postop F/U Visit 08:19:08 HIDE SHAKER CPT-94645 Immunization Single Admin 16:41:53 CDT 2013 CPT-53202 Fluzone Quadrivalent Intramuscular Suspe nsion 0.5 ML 16:41:53 CDT CPT-OV Office Visit 16:39:18 CDT CPT-OV Office Visit 16:16:36 CDT CPT-OV Office Visit 15:34:48 CDT CPT-83159 Postop F/U Visit 14:50:12 CDT CPT-77206 Postop F/U Visit 14:41:10 CDT CPT-62227 Venipuncture Draw Fee 11:38:04 HIDE SHAKER CPT-34065 Postop F/U Visit 19:02:59 HIDE SHAKER CPT-44412 Postop F/U Visit 12:04:54 HIDE SHAKER CPT-24922 Administration single or combination vac cine inc oral 15:56:43 CDT CPT-27867 Influenza split virus > age 3 15:56:43 CDT CPT-35559 Hand comp min 3V 14:25:19 CDT CPT-83269 Postop F/U Visit 21:40:51 CDT CPT-67502 Postop F/U Visit 10:58:43 CDT CPT-11733 Administration single or combination vac cine inc oral 12:33:54 HIDE SHAKER CPT-39766 Influenza Preservative Free split virus >age 3 12:33:54 HIDE SHAKER CPT-10946 Administration single or combination vac cine inc oral 09:30:51 CDT CPT-57173 Influenza split virus > age 3 09:30:51 CDT CPT-19145 Postop F/U Visit 15:14:53 CDT CPT-28562 Postop F/U Visit 13:50:14 CDT CPT-55414 Postop F/U Visit 13:34:52 CDT CPT-OV Office Visit 16:55:03 CDT CPT-18770 Gray of cervix w bx ECC 13:32:50 CDT 10/19 CPT-J1885 Toradol 60 mg (Ketorolac) 15:31:59 CDT 2011 CPT-J1885 Toradol 60 mg (Ketorolac) 15:23:54 CDT 2011 CPT-66650 Visit 11:34:37 HIDE SHAKER CPT-77911 Visit 10:52:39 HIDE SHAKER CPT-20556 Visit 10:12:02 HIDE SHAKER CPT-35028 Visit 11:22:43 HIDE SHAKER CPT-06695 Visit 11:24:12 HIDE SHAKER CPT-00641 Visit 10:47:05 HIDE SHAKER CPT-OV Office Visit 10:26:16 HIDE SHAKER CPT-OV Office Visit 15:34:31 HIDE SHAKER CPT-83693 Visit 10:42:08 HIDE SHAKER CPT-37334 Visit 10:52:45 HIDE SHAKER CPT-000 Give Appropriate Flu Vaccine 16:56:41 CDT 2 CPT-09121 Administration single or combination vac cine inc oral 10:33:21 CDT CPT-00692 Influenza split virus > age 3 10:33:21 CDT CPT-14152 Visit 13:23:09 CDT CPT-38514 Visit 18:24:52 CDT CPT-34965 Sono OB comp > 14 weeks 12:07:49 CDT 04/07
--- OUTSIDE RECORDS SUMMARY | 2020-01-18 17:28 | XMS REPORT | Clinical Summary ---
Author Author Admin, Jeri Rashid Organization [facility] Address Unknown Phone Allergies, Adverse [...] Abdirahman Rios MD , NORMAL ICD-V22.2 Inactive bAdirahman sanchez MD UNSPEC LOCAL INFECTION SKIN&SUBCUTANEOUS TISSUE [...] by mouth twice a day 11/05 SULFAMETHOXAZOLE-TRIMETHOPRIM [id number] No Longer Active Good Julian MD Active IBUPROFEN 800 MG TABS 1 tid prn IBUPROFEN 52950226519 Active Good Julian MD Active ENDOCET 10-325 MG TABS 1 q 6 hr prn OXYCODONE-A CETAMINOPHEN 56957971504 Active Good Julian MD Active HYDROCODONE-ACETAMINOPHEN 7.5-325 MG TABS 1 four times a day as needed for pain HYDROCODONE-ACETAMINOPHEN 56455079812 No Longer Activ crystal Julian MD Active KEFLEX 500 MG CAP 1 tab po tid CEPHALEXIN 292799 39936 No Longer Active Hira Moser APRN Active IBUPROFEN 800 MG TAB 1 pill three times daily as needed for pain IBUPROFEN 86174813155 No Longer Active Kalpesh Dong MD Active PROMETHAZINE-CODEINE 6.25-10 MG/5ML SYRP 1 tsp every 6 hrs prn c ough PROMETHAZINE-CODEINE 59966031896 No Longer Active Kalpesh Carr Active ALPRAZOLAM 0.5 MG TABS 1 PO bid PRN ALPRAZOLAM 016036 48183 Active Shola MCGILL Active HYDROCODONE-ACETAMINOPHEN 5-325 MG TABS 1 tab by mouth every 6 hours as needed HYDROCODONE-ACETAMINOPHEN 39734021787 No Longer Activ e Shola MCGILL Active CEPHALEXIN 500 MG CAPS 1 PO bid x 7 days CEPHAL EXIN 50022761517 No Longer Active Shola MCGILL Active BACTRIM DS 800-160 MG TAB 1 tab by mouth twice daily 2 TRIMETHOPRIM-SULFAMETHOXAZOLE 49214000431 No Longer Active Kalpesh Dong MD Active HYDROCODONE-ACETAMINOPHEN 5-325 MG TABS 1 PO tid PRN pain 5 HYDROCODONE-ACETAMINOPHEN 48553820655 No Longer Active Abhinav Galvan MD Active IMPLANON 68 MG IMPL IMPLANTED IN LEFT ARM ETONO GESTREL 93198085359 No Longer Active 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 SENIOR STRUCTURAL ENGINEER Active AMOXICILLIN 500 MG TABS 2 tabs PO bid x 10 d AM OXICILLIN 02093369926 No Longer Active Kalpesh Dong MD Active LEVAQUIN 500 MG TABS 1 PO q day x 7 days LEVOFL OXACIN 41141191731 No Longer Active Shola MCGILL Active PROAIR HFA 108 (90 BASE) MCG/ACT AERS 2 puff q 4-6 hrs PRN ALBUTEROL SULFATE 31866344043 Active Shola MCGILL Acti ve FIORICET 50-325-40 MG TABS 2 PO q 8 hrs PRN FOSTER [id number] 23060096012 Active Abdirahman Rios MD Active AMITRIPTYLINE HCL 25 MG TAB 1 tab by mouth daily 60 minutes before bedtime AMITRIPTYLINE HCL 19035738276 No Longer Active Shola MCGILL Active LORTAB 5 5-500 MG TABS 1/2 to 1 tablet by mouth go ry 6 hours as needed for pain HYDROCODONE-ACETAMINOPHEN 17989487492 No Longer Active Shola MCGILL Active CEPHALEXIN 500 MG TABS Take one by mouth four times daily, morning, noon, early evening and bedtime. CEPHALEXIN 37939295436 No Long er Active Hira Perazaabel SENIOR STRUCTURAL ENGINEER Active TYLENOL/CODEINE #3 300-30 MG TAB 1-2 po q6hr PRN Pain ACETAMINOPHEN-CODEINE 59529721095 No Longer Active Edilberto Marino DO Active PRISTIQ 50 MG [id number] 1 po qd DESVENLAFAXI NE SUCCINATE 42080599388 No Longer Active Edilberto Marino DO Active PENICILLIN V POTASSIUM 500 MG TAB 1 four times a day 2 PENICILLIN V POTASSIUM 33163248097 No Longer Active Edilberto Marino DO Active DOXYCYCLINE HYCLATE 100 MG CAPS Take one (1) tablet by mouth twice a day DOXYCYCLINE HYCLATE 52513106603 No Longer Active Ronnie Galvan MD Active HYDROCODONE-ACETAMINOPHEN 5-325 MG TABS 1 po q 6hr PRN Pain 2011 HYDROCODONE-ACETAMINOPHEN 66439890029 No Longer Active Patri joan Perez RN Active BACTRIM DS 800-160 MG TAB 1 tab by mouth twice daily 2 TRIMETHOPRIM-SULFAMETHOXAZOLE 05705401151 No Longer Active Kalpesh Dong MD Active LORTAB 5 5-500 MG TABS 1/2 to 1 tablet by mouth go ry 4 hours as needed for pain HYDROCODONE-ACETAMINOPHEN 77710066826 No Longer Active Kalpesh Dong MD Active GENERESS FE 0.8-25 MG-MCG CHEW Take one by mouth daily NORETHIN-ETH ESTRADIOL-FE 38847506256 No Longer Active Kalpesh Dong MD Active HYDROCODONE-ACETAMINOPHEN 7.5-500 MG TABS 1-2 every 4 hours as needed HYDROCODONE-ACETAMINOPHEN 11996445274 No Longer Activ e Kalpesh Dong MD Active FERROUS SULFATE 325 (65 FE) MG TABS 1 tablet by mouth twice yung y FERROUS SULFATE 98923127483 No Longer Active Kalpesh Dong MD Active IBUPROFEN 600 MG TAB 1 po q6-8hr PRN IBUPROFEN 18922770408 No Longer Active Kalpesh Dong MD Active SPIRONOLACTONE 25 MG TAB 1 tablet by mouth daily 01/22 SPIRONOLACTONE 86201964596 No Longer Active Kalpesh Dong MD Acti ve HYDROCODONE-ACETAMINOPHEN 7.5-325 MG TABS 1 po QID PRN Pain 2011 HYDROCODONE-ACETAMINOPHEN 84822322329 No Longer Active Kalpesh Dong MD Active CLINDAMYCIN HCL 300 MG CAPS 1 po q6hr x 7 days CLINDAMYCIN HCL 42149908530 No Longer Active Edilberto Marino DO Active PREDNISONE 20 MG TAB 2 tabs daily for 4 days, 1 t ab daily for 4 days, 1/2 tab daily for 4 days PREDNISONE 44395900250 No Longer Active Edilberto Marino DO Active PERCOCET 5-325 MG TABS 1 tablet by mouth every 6 hours as ne eded for pain OXYCODONE-ACETAMINOPHEN 95847990312 No Longer Active Abdirahman Rios MD Active VITAMINS TABS Take one by mouth daily MV & MIN W/FE-FA TABS 62744306426 No Longer Active Abdirahman Rios MD Active LUIS 3-0.02 MG TABS 1 tablet by mouth daily as directed DROSPIRENONE-ETHINYL ESTRADIOL 09897627397 No Longer Active Abdirahman Rios MD Active LORATADINE 10 MG TABS 1 tablet by mouth daily L ORATADINE 71466186156 No Longer Active Kalpesh Dong MD Active HYDROCODONE-ACETAMINOPHEN 5-325 MG TABS 1 po q 6hr PRN Pain 2010 HYDROCODONE-ACETAMINOPHEN 86415149074 No Longer Active Edilberto Marino DO Active BACTRIM DS 800-160 MG TAB 1 tab by mouth twice daily 2 TRIMETHOPRIM-SULFAMETHOXAZOLE 86584404258 No Longer Active Abdirahman Rios MD Active 28-0.8 MG TABS Take one by mouth daily 09/20 VIT-FE FUMARATE-FA 46261764717 No Longer Active Abdirahman Rios MD Active CIPRO 500 MG TAB 1 tablet by mouth twice daily CIPROFLOXACIN HCL 11407910178 No Longer Active Abdirahman Rios MD Active BENADRYL 25 MG CAP 1 po q8hr PRN Congestion DIPHENHYDRAMINE HCL 80608392337 No Longer Active Abdirahman Rios MD Active ZOLOFT 50 MG TAB 1 po qd SERTRALINE HCL 754597 33546 No Longer Active Abdirahman Rios MD Active AMOXICILLIN 875 MG TABS 1 tab by mouth twice daily 201 08/09/13 AMOXICILLIN 16532039227 No Longer Active Abdirahman Rios MD Activ e AMOXICILLIN 875 MG TABS 1 tab by mouth twice daily 201 07/19/27 AMOXICILLIN 52875401071 No Longer Active Abdirahman Rios MD Activ e BACTRIM DS 800-160 MG TAB 2 tab by mouth twice daily 2 TRIMETHOPRIM-SULFAMETHOXAZOLE 92946539470 No Longer Active Abdirahman Rios MD Active KEFLEX 500 MG CAP 1 po tid x 10 days CEPHALEXIN 75441123175 No Longer Active Abdirahman Rios MD Active AMOXICILLIN 875 MG TABS 1 tab by mouth twice daily 201 07/18/07 AMOXICILLIN 29721250969 No Longer Active Abdirahman Rios MD Activ e BACTRIM DS 800-160 MG TAB 2 tab by mouth twice daily 2 BACTRIM DS 800-160 MG TAB TRIMETHOPRIM-SULFAMETHOXAZOLE Inactive ZOLOFT 50 MG TAB 1 po qd ZOLOFT 50 MG TAB 3129 41 SERTRALINE HCL Inactive BENADRYL 25 MG CAP 1 po q8hr PRN Congestion BENADRYL 25 MG CAP 1522378 DIPHENHYDRAMINE HCL Inactive 28-0.8 MG TABS Take one by mouth daily 09/20 28-0.8 MG TABS VIT-FE FUMARATE-FA Inactive HYDROCODONE-ACETAMINOPHEN 5-325 MG TABS 1 po q 6hr PRN Pain 2010 HYDROCODONE-ACETAMINOPHEN 5-325 MG TABS 060031 HYDROCODONE-ACETAMINOPHEN Inactive LORATADINE 10 MG TABS 1 tablet by mouth daily LORATADINE 10 MG TABS 344624 LORATADINE Inactive LUIS 3-0.02 MG TABS 1 tablet by mouth daily as directed LUIS 3-0.02 MG TABS DROSPIRENONE-ETHINYL ESTRADIOL Inactive VITAMINS TABS Take one by mouth daily VITAMINS TABS MV & MIN W/FE-FA TABS Inactive PERCOCET 5-325 MG TABS 1 tablet by mouth every 6 hours as ne eded for pain PERCOCET 5-325 MG TABS 1875505 OXYCODONE-ACETAMIN OPHEN Inactive PREDNISONE 20 MG TAB 2 tabs daily for 4 days, 1 t ab daily for 4 days, 1/2 tab daily for 4 days PREDNISONE 20 MG TAB 021698 PREDNISON E Inactive CLINDAMYCIN HCL 300 MG CAPS 1 po q6hr x 7 days CLINDAMYCIN HCL 300 MG CAPS 978151 CLINDAMYCIN HCL Inactive HYDROCODONE-ACETAMINOPHEN 7.5-325 MG TABS 1 po QID PRN Pain 2011 HYDROCODONE-ACETAMINOPHEN 7.5-325 MG TABS 274039 HYDROCODONE-ACETAMINOPHEN Inactive SPIRONOLACTONE 25 MG TAB 1 tablet by mouth daily 01/22 SPIRONOLACTONE 25 MG TAB 463372 SPIRONOLACTONE Inactive IBUPROFEN 600 MG TAB 1 po q6-8hr PRN IBUPROFEN 600 MG TAB 191704 IBUPROFEN Inactive FERROUS SULFATE 325 (65 FE) MG TABS 1 tablet by mouth twice yung y FERROUS SULFATE 325 (65 FE) MG TABS 070909 FERROUS SULF ATE Inactive HYDROCODONE-ACETAMINOPHEN 7.5-500 MG TABS 1-2 every 4 hours as needed HYDROCODONE-ACETAMINOPHEN 7.5-500 MG TABS 160260 HYDROCODONE-ACETAMINOPHEN Inactive GENERESS FE 0.8-25 MG-MCG CHEW [...] PRN Pain 2011 HYDROCODONE-ACETAMINOPHEN 5-325 MG TABS 815514 HYDROCODONE-ACETAMINOPHEN Inactive DOXYCYCLINE HYCLATE 100 MG CAPS Take one (1) tablet by mouth twice a day DOXYCYCLINE HYCLATE 100 MG CAPS 734776 DOXYCYCLINE HYCLATE Inactive PENICILLIN V POTASSIUM 500 MG TAB 1 four times a day 2 PENICILLIN V POTASSIUM 500 MG TAB 633317 PENICILLIN V POTASSIUM [place] ctive PRISTIQ 50 MG [id number] 1 po qd PRISTIQ 50 MG [id number] DESVENLAFAXINE SUCCINATE Inactive TYLENOL/CODEINE #3 300-30 MG TAB 1-2 po q6hr PRN Pain TYLENOL/CODEINE #3 300-30 MG TAB 553823 ACETAMINOPHEN-CODEINE Inact krishna CEPHALEXIN 500 MG TABS Take one by mouth four times daily, morning, noon, early evening and bedtime. CEPHALEXIN 500 MG TABS 559266 CEPHALEXIN Inactive LORTAB 5 5-500 MG TABS 1/2 to 1 tablet by mouth go ry 6 hours as needed for pain LORTAB 5 5-500 MG TABS HYDROCODONE-A CETAMINOPHEN Inactive AMITRIPTYLINE HCL 25 MG TAB 1 tab by mouth daily 60 minutes before bedtime AMITRIPTYLINE HCL 25 MG TAB 147999 AMITRIPTYLINE HCL Inactive AMOXICILLIN 500 MG TABS 2 tabs PO bid x 10 d 7 AMOXICILLIN 500 MG TABS 596808 AMOXICILLIN Inactive IMPLANON 68 MG IMPL IMPLANTED IN LEFT ARM IMPLANON 68 MG IMPL ETONOGESTREL Inactive HYDROCODONE-ACETAMINOPHEN 5-325 MG TABS 1 PO tid PRN pain 5 HYDROCODONE-ACETAMINOPHEN 5-325 MG TABS 107672 HYDROCODONE-ACETAMIN OPHEN Inactive BACTRIM DS 800-160 MG TAB 1 tab by mouth twice daily 2 BACTRIM DS 800-160 MG TAB TRIMETHOPRIM-SULFAMETHOXAZOLE Inac tive CEPHALEXIN 500 MG CAPS 1 PO bid x 7 days CEPHALEXIN 500 MG CAPS 972405 CEPHALEXIN Inactive HYDROCODONE-ACETAMINOPHEN 5-325 MG TABS 1 tab by mouth every 6 hours as needed HYDROCODONE-ACETAMINOPHEN 5-325 MG TABS 361007 HYDROCODONE-ACETAMINOPHEN Inactive PROMETHAZINE-CODEINE 6.25-10 MG/5ML SYRP 1 tsp every 6 hrs prn c ough PROMETHAZINE-CODEINE 6.25-10 MG/5ML SYRP 278120 PROMETH AZINE-CODEINE Inactive IBUPROFEN 800 MG TAB 1 pill three times daily as needed for pain IBUPROFEN 800 MG TAB 632096 IBUPROFEN Inactive KEFLEX 500 MG CAP 1 tab po tid KEFLEX 500 MG CAP 403778 CEPHALEXIN Inactive HYDROCODONE-ACETAMINOPHEN 7.5-325 MG TABS 1 four times a day as needed for pain HYDROCODONE-ACETAMINOPHEN 7.5-325 MG TABS 503126 HYDROCODONE-ACETAMINOPHEN Inactive BACTRIM DS 800-160 MG TABS by mouth twice a day 11/05 BACTRIM DS 800-160 MG TABS SULFAMETHOXAZOLE-TRIMETHOPRIM Inactive AMOXICILLIN 875 MG TABS 1 tab by mouth twice daily 201 07/18/07 AMOXICILLIN 875 MG TABS 147234 AMOXICILLIN Inactive KEFLEX 500 MG CAP 1 po tid x 10 days KEFLEX 500 MG CAP 100792 CEPHALEXIN Inactive AMOXICILLIN 875 MG TABS 1 tab by mouth twice daily 201 07/19/27 AMOXICILLIN 875 MG TABS 664318 AMOXICILLIN Inactive AMOXICILLIN 875 MG TABS 1 tab by mouth twice daily 08/09/13 AMOXICILLIN 875 MG TABS 910811 AMOXICILLIN Inactive CIPRO 500 MG TAB 1 tablet by mouth twice daily CIPRO 500 MG TAB 417117 CIPROFLOXACIN HCL Inactive BACTRIM DS 800-160 MG TAB 1 tab by mouth twice daily 2 BACTRIM DS 800-160 MG TAB TRIMETHOPRIM-SULFAMETHOXAZOLE Inac tive LEVAQUIN 500 MG TABS 1 PO q day x 7 days LEVAQUIN 500 MG TABS 430124 LEVOFLOXACIN Inactive Advance Directives Directive Description Start Date PERMISSION TO SHARE Immunizations Vaccine Administration Date Value Standard Alf cription Seasonal influenza vaccine, injectable, containing preservative, for > 3 years old (Afluria, FluLaval, Fluzone, Fluvirin, Fluarix, Agriflu(>= 18 yo)) Fluzone (>3 yrs.) [[id number]] Influenza, seasonal, inject able Seasonal influenza vaccine, injectable, preservative free, for > 3 years old (Afluria, FluLaval, Fluzone, Fluvirin, Fluarix, Agriflu(>= 18 yo)) Fluzone preservative free (>3 yrs.) [[id number]] Influenza, seasonal, injectable, preservative free Seasonal influenza vaccine, injectable, containing preservative, for > 3 years old (Afluria, FluLaval, Fluzone, Fluvirin, Fluarix, Agriflu(>= 18 yo)) Fluzone (>3 yrs.) [[id number]] Influenza, seasonal, inject able Seasonal influenza vaccine, injectable, containing preservative, for > 3 years old (Afluria, FluLaval, Fluzone, Fluvirin, Fluarix, Agriflu(>= 18 yo)) Fluzone (>3 yrs.) [[id number]] Influenza, seasonal, inject able dT (Diphtheria and [...] ... - Chemistry sodium, serum 140 mmol/L 968-487 0218/02/24 potassium, serum 4.3 mmol/L 3.5-5.2 chloride, serum [...] 4.3-6.0 Lab Report: T3, TOTAL, INSULIN - Investigation Manager ry triiodothyronine, serum 78 ng/dL 76-181 [...] mg/dL Encounters Code Encounter Date Provider Facility CPT-18205 Level 3 Est. Patient 14:11:58 CDT Kalpesh goins MD [facility] CPT-22924 Level 3 Est. Patient 16:50:00 CDT Michelle MERCADO [facility] CPT-79824 Level 3 Est. Patient 17:11:32 SIZE TESTER Brandie bates MD PhD [facility] CPT-88726 Level 3 Est. Patient 16:31:47 SIZE TESTER Shola MCGILL [facility] CPT-82569 Level 3 Est. Patient 17:51:10 SIZE TESTER Abhinav Galvan MD [facility] CPT-50947 Level 4 Est. Patient 12:54:56 SIZE TESTER Kalpesh goins MD [facility] CPT-13309 Level 4 Est. Patient 12:53:56 SIZE TESTER Kalpesh goins MD [facility] CPT-73434 Level 3 Est. Patient 17:56:58 CDT Shola Wright [facility] CPT-35693 Level 3 Est. Patient 14:26:20 CDT Janak butcher [facility] CPT-31478 Level 3 Est. Patient 09:38:41 CDT Shola Keesha Wright [facility] CPT-29389 Level 3 Est. Patient 14:45:26 CDT Edilberto tiwari [facility]-88418 Level 3 Est. Patient 10:51:33 CDT [facility] Level 3 Est. Patient 11:57:55 SIZE TESTER Shola Thao Adriana [facility] CPT-03944 Level 3 Est. Patient 09:53:33 SIZE TESTER Edilberto tiwari [facility] CPT-76659 Level 3 Est. Patient 14:42:54 SIZE TESTER Abhinav Galvan MD [facility] CPT-62505 Level 3 Est. Patient 15:10:02 CDT Janak butcher [facility] CPT-01763 Level 3 Est. Patient 15:20:20 CDT Theo dennis MD [facility] CPT-71771 Level 2 Est. Patient 14:08:57 CDT Kalpesh goins MD [facility]-44096 Level 3 Est. Patient 13:56:19 CDT Abdirahman Rios MD [facility] CPT-53612 Level 3 Est. Patient 13:59:37 CDT Abdirahman Rios MD [facility] CPT-41337 Level 2 Est. Patient 14:44:59 CDT Kalpesh goins MD [facility] CPT-37478 Level 3 Est. Patient 06:06:23 CDT Edilberto tiwari DO [facility] CPT-87004 Level 3 Est. Patient 15:23:54 CDT Abdirahman Rios MD [facility] CPT-66007 Level 3 Est. Patient 15:43:49 CDT Abdirahman Rios MD [facility] CPT-47870 Level 3 Est. Patient 12:46:47 SIZE TESTER Abdirahman Rios MD [facility] CPT-09497 Level 3 Est. Patient 08:13:35 SIZE TESTER Abdirahman Rios MD [facility] CPT-59526 Level 2 Est. Patient 09:36:42 SIZE TESTER Abdirahman Rios MD [facility] CPT-65647 Level 3 Est. Patient 10:56:43 CDT Abdirahman Rios MD [facility] CPT-46668 Level 3 Est. Patient 18:24:52 CDT Abdirahman Rios MD [facility] CPT-44930 Level 3 Est. Patient 13:27:22 CDT Abdirahman Rios MD [facility] Procedures Code Procedure Name Date Entry Date Standard Desc ription CPT-OV Office Visit 15:34:48 CDT CPT-26412 Postop F/U Visit 14:50:12 CDT CPT-82986 Postop F/U Visit 14:41:10 CDT CPT-40901 Venipuncture Draw Fee 11:38:04 SIZE TESTER CPT-91708 Postop F/U Visit 19:02:59 SIZE TESTER CPT-20080 Postop F/U Visit 12:04:54 SIZE TESTER CPT-64553 Administration single or combination vac cine inc oral 15:56:43 CDT CPT-35933 Influenza split virus > age 3 15:56:43 CDT CPT-15108 Hand comp min 3V 14:25:19 CDT CPT-79737 Postop F/U Visit 21:40:51 CDT CPT-84630 Postop F/U Visit 10:58:43 CDT CPT-83413 Administration single or combination vac cine inc oral 12:33:54 SIZE TESTER CPT-87336 Influenza Preservative Free split virus >age 3 12:33:54 SIZE TESTER CPT-68209 Administration single or combination vac cine inc oral 09:30:51 CDT CPT-03717 Influenza split virus > age 3 09:30:51 CDT CPT-29546 Postop F/U Visit 15:14:53 CDT CPT-46852 Postop F/U Visit 13:50:14 CDT CPT-34333 Postop F/U Visit 13:34:52 CDT CPT-OV Office Visit 16:55:03 CDT CPT-71385 [place] of cervix w bx ECC 13:32:50 CDT 10/19 CPT-J1885 Toradol 60 mg (Ketorolac) 15:31:59 CDT 2011 CPT-J1885 Toradol 60 mg (Ketorolac) 15:23:54 CDT 2011 CPT-57028 Visit 11:34:37 SIZE TESTER CPT-36677 Visit 10:52:39 SIZE TESTER CPT-06578 Visit 10:12:02 SIZE TESTER CPT-48677 Visit 11:22:43 SIZE TESTER CPT-52140 Visit 11:24:12 SIZE TESTER CPT-40325 Visit 10:47:05 SIZE TESTER CPT-OV Office Visit 10:26:16 SIZE TESTER CPT-OV Office Visit 15:34:31 SIZE TESTER CPT-97083 Visit 10:42:08 SIZE TESTER CPT-33850 Visit 10:52:45 SIZE TESTER CPT-000 Give Appropriate Flu Vaccine 16:56:41 CDT 2 CPT-57274 Administration single or combination vac cine inc oral 10:33:21 CDT CPT-20614 Influenza split virus > age 3 10:33:21 CDT CPT-87196 Visit 13:23:09 CDT CPT-35672 Visit 18:24:52 CDT CPT-30484 Sono OB comp > 14 weeks 12:07:49 CDT 04/07
--- OUTSIDE RECORDS SUMMARY | 2020-01-18 17:29 | XMS REPORT | Clinical Summary ---
Author Author Admin, Jeri Rashid Organization [facility] Address Unknown Phone Allergies, Adverse Reactions, Alerts [...] by mouth twice a day 11/05 SULFAMETHOXAZOLE-TRIMETHOPRIM [id number] No Longer Active Good Julian MD Active IBUPROFEN 800 MG TABS 1 tid prn IBUPROFEN 43806352491 Active Good Julian MD Active ENDOCET 10-325 MG TABS 1 q 6 hr prn OXYCODONE-A CETAMINOPHEN 29631629998 Active Shola MCGILL Active HYDROCODONE-ACETAMINOPHEN 7.5-325 MG TABS 1 four times a day as needed for pain HYDROCODONE-ACETAMINOPHEN 98044812780 No Longer Activ crystal Julian MD Active KEFLEX 500 MG CAP 1 tab po tid CEPHALEXIN 025044 72152 No Longer Active Hira Moser APRN Active IBUPROFEN 800 MG TAB 1 pill three times daily as needed for pain IBUPROFEN 23514439701 No Longer Active Kalpesh Dong MD Active PROMETHAZINE-CODEINE 6.25-10 MG/5ML SYRP 1 tsp every 6 hrs prn c ough PROMETHAZINE-CODEINE 50085499999 No Longer Active Kalpesh Carr Active ALPRAZOLAM 0.5 MG TABS 1 PO bid PRN ALPRAZOLAM 829952 47496 Active Shola MCGILL Active HYDROCODONE-ACETAMINOPHEN 5-325 MG TABS 1 tab by mouth every 6 hours as needed HYDROCODONE-ACETAMINOPHEN 80974779318 No Longer Activ e Shola MCGILL Active CEPHALEXIN 500 MG CAPS 1 PO bid x 7 days CEPHAL EXIN 56671417710 No Longer Active Shola MCGILL Active BACTRIM DS 800-160 MG TAB 1 tab by mouth twice daily 2 TRIMETHOPRIM-SULFAMETHOXAZOLE 33359327624 No Longer Active Kalpesh Dong MD Active HYDROCODONE-ACETAMINOPHEN 5-325 MG TABS 1 PO tid PRN pain 5 HYDROCODONE-ACETAMINOPHEN 71066582632 No Longer Active Abhinav Galvan MD Active IMPLANON 68 MG IMPL IMPLANTED IN LEFT ARM ETONO GESTREL 68539072387 No Longer Active 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 WOODEN BARREL MECHANIC Active AMOXICILLIN 500 MG TABS 2 tabs PO bid x 10 d AM OXICILLIN 22427096548 No Longer Active Kalpesh Dong MD Active LEVAQUIN 500 MG TABS 1 PO q day x 7 days LEVOFL OXACIN 97155856028 No Longer Active Shola MCGILL Active PROAIR HFA 108 (90 BASE) MCG/ACT AERS 2 puff q 4-6 hrs PRN ALBUTEROL SULFATE 03596734550 Active Shola MCGILL Acti ve FIORICET 50-325-40 MG TABS 2 PO q 8 hrs PRN FOSTER [id number] 84098843315 Active Abdirahman Rios MD Active AMITRIPTYLINE HCL 25 MG TAB 1 tab by mouth daily 60 minutes before bedtime AMITRIPTYLINE HCL 31187753628 No Longer Active Shola MCGLIL Active LORTAB 5 5-500 MG TABS 1/2 to 1 tablet by mouth go ry 6 hours as needed for pain HYDROCODONE-ACETAMINOPHEN 80293526373 No Longer Active Shola MCGILL Active CEPHALEXIN 500 MG TABS Take one by mouth four times daily, morning, noon, early evening and bedtime. CEPHALEXIN 88749396499 No Long er Active Hira Moser WOODEN BARREL MECHANIC Active TYLENOL/CODEINE #3 300-30 MG TAB 1-2 po q6hr PRN Pain ACETAMINOPHEN-CODEINE 74115840886 No Longer Active Edilberto Marino DO Active PRISTIQ 50 MG [id number] 1 po qd DESVENLAFAXI NE SUCCINATE 59465717998 No Longer Active Edilberto Marino DO Active PENICILLIN V POTASSIUM 500 MG TAB 1 four times a day 2 PENICILLIN V POTASSIUM 69849072394 No Longer Active Edilberto Marino DO Active DOXYCYCLINE HYCLATE 100 MG CAPS Take one (1) tablet by mouth twice a day DOXYCYCLINE HYCLATE 35363267434 No Longer Active Ronnie Galvan MD Active HYDROCODONE-ACETAMINOPHEN 5-325 MG TABS 1 po q 6hr PRN Pain 2011 HYDROCODONE-ACETAMINOPHEN 43062801340 No Longer Active Patri joan Perez RN Active BACTRIM DS 800-160 MG TAB 1 tab by mouth twice daily 2 TRIMETHOPRIM-SULFAMETHOXAZOLE 19992132829 No Longer Active Kalpesh Dong MD Active LORTAB 5 5-500 MG TABS 1/2 to 1 tablet by mouth go ry 4 hours as needed for pain HYDROCODONE-ACETAMINOPHEN 49452287624 No Longer Active Kalpesh Dong MD Active GENERESS FE 0.8-25 MG-MCG CHEW Take one by mouth daily NORETHIN-ETH ESTRADIOL-FE 24606681366 No Longer Active Kalpesh Dong MD Active HYDROCODONE-ACETAMINOPHEN 7.5-500 MG TABS 1-2 every 4 hours as needed HYDROCODONE-ACETAMINOPHEN 66273074774 No Longer Activ e Kalpesh Dong MD Active FERROUS SULFATE 325 (65 FE) MG TABS 1 tablet by mouth twice yung y FERROUS SULFATE 98844296991 No Longer Active Kalpesh Dong MD Active IBUPROFEN 600 MG TAB 1 po q6-8hr PRN IBUPROFEN 09275889847 No Longer Active Kalpesh Dong MD Active SPIRONOLACTONE 25 MG TAB 1 tablet by mouth daily 01/22 SPIRONOLACTONE 67736146538 No Longer Active Kalpesh Dong MD Acti ve HYDROCODONE-ACETAMINOPHEN 7.5-325 MG TABS 1 po QID PRN Pain 2011 HYDROCODONE-ACETAMINOPHEN 06761748883 No Longer Active Kalpesh Dong MD Active CLINDAMYCIN HCL 300 MG CAPS 1 po q6hr x 7 days CLINDAMYCIN HCL 37726373253 No Longer Active Edilberto Marino DO Active PREDNISONE 20 MG TAB 2 tabs daily for 4 days, 1 t ab daily for 4 days, 1/2 tab daily for 4 days PREDNISONE 57504633132 No Longer Active Edilberto Marino DO Active PERCOCET 5-325 MG TABS 1 tablet by mouth every 6 hours as ne eded for pain OXYCODONE-ACETAMINOPHEN 10374977086 No Longer Active Abdirahman Rios MD Active VITAMINS TABS Take one by mouth daily MV & MIN W/FE-FA TABS 03662878572 No Longer Active Abdirahman Rios MD Active LUIS 3-0.02 MG TABS 1 tablet by mouth daily as directed DROSPIRENONE-ETHINYL ESTRADIOL 62135004359 No Longer Active Abdirahman Rios MD Active LORATADINE 10 MG TABS 1 tablet by mouth daily L ORATADINE 34386210983 No Longer Active Kalpesh Dong MD Active HYDROCODONE-ACETAMINOPHEN 5-325 MG TABS 1 po q 6hr PRN Pain 2010 HYDROCODONE-ACETAMINOPHEN 20061689056 No Longer Active Edilberto Marino DO Active BACTRIM DS 800-160 MG TAB 1 tab by mouth twice daily 2 TRIMETHOPRIM-SULFAMETHOXAZOLE 88967977761 No Longer Active Abdirahman Rios MD Active 28-0.8 MG TABS Take one by mouth daily 09/20 VIT-FE FUMARATE-FA 18929426969 No Longer Active Abdirahman Rios MD Active CIPRO 500 MG TAB 1 tablet by mouth twice daily CIPROFLOXACIN HCL 56779503904 No Longer Active Abdirahman Rios MD Active BENADRYL 25 MG CAP 1 po q8hr PRN Congestion DIPHENHYDRAMINE HCL 19701802037 No Longer Active Abdirahman Rios MD Active ZOLOFT 50 MG TAB 1 po qd SERTRALINE HCL 187693 40189 No Longer Active Abdirahman Rios MD Active AMOXICILLIN 875 MG TABS 1 tab by mouth twice daily 201 08/09/13 AMOXICILLIN 25849884420 No Longer Active Abdirahman Rios MD Activ e AMOXICILLIN 875 MG TABS 1 tab by mouth twice daily 201 07/19/27 AMOXICILLIN 86438310687 No Longer Active Abdirahman Rios MD Activ e BACTRIM DS 800-160 MG TAB 2 tab by mouth twice daily 2 TRIMETHOPRIM-SULFAMETHOXAZOLE 72921464396 No Longer Active Abdirahman Rios MD Active KEFLEX 500 MG CAP 1 po tid x 10 days CEPHALEXIN 80484104605 No Longer Active Abdirahman Rios MD Active AMOXICILLIN 875 MG TABS 1 tab by mouth twice daily 201 07/18/07 AMOXICILLIN 14924661899 No Longer Active Abdirahman Rios MD Activ e BACTRIM DS 800-160 MG TAB 2 tab by mouth twice daily 2 BACTRIM DS 800-160 MG TAB TRIMETHOPRIM-SULFAMETHOXAZOLE Inactive ZOLOFT 50 MG TAB 1 po qd ZOLOFT 50 MG TAB 3129 41 SERTRALINE HCL Inactive BENADRYL 25 MG CAP 1 po q8hr PRN Congestion BENADRYL 25 MG CAP 2481681 DIPHENHYDRAMINE HCL Inactive 28-0.8 MG TABS Take one by mouth daily 09/20 28-0.8 MG TABS VIT-FE FUMARATE-FA Inactive HYDROCODONE-ACETAMINOPHEN 5-325 MG TABS 1 po q 6hr PRN Pain 2010 HYDROCODONE-ACETAMINOPHEN 5-325 MG TABS 872087 HYDROCODONE-ACETAMINOPHEN Inactive LORATADINE 10 MG TABS 1 tablet by mouth daily LORATADINE 10 MG TABS 792706 LORATADINE Inactive LUIS 3-0.02 MG TABS 1 tablet by mouth daily as directed LUIS 3-0.02 MG TABS DROSPIRENONE-ETHINYL ESTRADIOL Inactive VITAMINS TABS Take one by mouth daily VITAMINS TABS MV & MIN W/FE-FA TABS Inactive PERCOCET 5-325 MG TABS 1 tablet by mouth every 6 hours as ne eded for pain PERCOCET 5-325 MG TABS 4095286 OXYCODONE-ACETAMIN OPHEN Inactive PREDNISONE 20 MG TAB 2 tabs daily for 4 days, 1 t ab daily for 4 days, 1/2 tab daily for 4 days PREDNISONE 20 MG TAB 982113 PREDNISON E Inactive CLINDAMYCIN HCL 300 MG CAPS 1 po q6hr x 7 days CLINDAMYCIN HCL 300 MG CAPS 130510 CLINDAMYCIN HCL Inactive HYDROCODONE-ACETAMINOPHEN 7.5-325 MG TABS 1 po QID PRN Pain 2011 HYDROCODONE-ACETAMINOPHEN 7.5-325 MG TABS 469402 HYDROCODONE-ACETAMINOPHEN Inactive SPIRONOLACTONE 25 MG TAB 1 tablet by mouth daily 01/22 SPIRONOLACTONE 25 MG TAB 942071 SPIRONOLACTONE Inactive IBUPROFEN 600 MG TAB 1 po q6-8hr PRN IBUPROFEN 600 MG TAB 951432 IBUPROFEN Inactive FERROUS SULFATE 325 (65 FE) MG TABS 1 tablet by mouth twice yung y FERROUS SULFATE 325 (65 FE) MG TABS 760440 FERROUS SULF ATE Inactive HYDROCODONE-ACETAMINOPHEN 7.5-500 MG TABS 1-2 every 4 hours as needed HYDROCODONE-ACETAMINOPHEN 7.5-500 MG TABS 462706 HYDROCODONE-ACETAMINOPHEN Inactive GENERESS FE 0.8-25 MG-MCG CHEW [...] PRN Pain 2011 HYDROCODONE-ACETAMINOPHEN 5-325 MG TABS 450356 HYDROCODONE-ACETAMINOPHEN Inactive DOXYCYCLINE HYCLATE 100 MG CAPS Take one (1) tablet by mouth twice a day DOXYCYCLINE HYCLATE 100 MG CAPS 097739 DOXYCYCLINE HYCLATE Inactive PENICILLIN V POTASSIUM 500 MG TAB 1 four times a day 2 PENICILLIN V POTASSIUM 500 MG TAB 928646 PENICILLIN V POTASSIUM Sanger ctive PRISTIQ 50 MG [id number] 1 po qd PRISTIQ 50 MG [id number] DESVENLAFAXINE SUCCINATE Inactive TYLENOL/CODEINE #3 300-30 MG TAB 1-2 po q6hr PRN Pain TYLENOL/CODEINE #3 300-30 MG TAB 199230 ACETAMINOPHEN-CODEINE Inact krishna CEPHALEXIN 500 MG TABS Take one by mouth four times daily, morning, noon, early evening and bedtime. CEPHALEXIN 500 MG TABS 286508 CEPHALEXIN Inactive LORTAB 5 5-500 MG TABS 1/2 to 1 tablet by mouth go ry 6 hours as needed for pain LORTAB 5 5-500 MG TABS HYDROCODONE-A CETAMINOPHEN Inactive AMITRIPTYLINE HCL 25 MG TAB 1 tab by mouth daily 60 minutes before bedtime AMITRIPTYLINE HCL 25 MG TAB 371837 AMITRIPTYLINE HCL Inactive AMOXICILLIN 500 MG TABS 2 tabs PO bid x 10 d 7 AMOXICILLIN 500 MG TABS 252727 AMOXICILLIN Inactive IMPLANON 68 MG IMPL IMPLANTED IN LEFT ARM IMPLANON 68 MG IMPL ETONOGESTREL Inactive HYDROCODONE-ACETAMINOPHEN 5-325 MG TABS 1 PO tid PRN pain 5 HYDROCODONE-ACETAMINOPHEN 5-325 MG TABS 386991 HYDROCODONE-ACETAMIN OPHEN Inactive BACTRIM DS 800-160 MG TAB 1 tab by mouth twice daily 2 BACTRIM DS 800-160 MG TAB TRIMETHOPRIM-SULFAMETHOXAZOLE Inac tive CEPHALEXIN 500 MG CAPS 1 PO bid x 7 days CEPHALEXIN 500 MG CAPS 220715 CEPHALEXIN Inactive HYDROCODONE-ACETAMINOPHEN 5-325 MG TABS 1 tab by mouth every 6 hours as needed HYDROCODONE-ACETAMINOPHEN 5-325 MG TABS 318392 HYDROCODONE-ACETAMINOPHEN Inactive PROMETHAZINE-CODEINE 6.25-10 MG/5ML SYRP 1 tsp every 6 hrs prn c ough PROMETHAZINE-CODEINE 6.25-10 MG/5ML SYRP 900782 PROMETH AZINE-CODEINE Inactive IBUPROFEN 800 MG TAB 1 pill three times daily as needed for pain IBUPROFEN 800 MG TAB 703720 IBUPROFEN Inactive KEFLEX 500 MG CAP 1 tab po tid KEFLEX 500 MG CAP 409347 CEPHALEXIN Inactive HYDROCODONE-ACETAMINOPHEN 7.5-325 MG TABS 1 four times a day as needed for pain HYDROCODONE-ACETAMINOPHEN 7.5-325 MG TABS 956625 HYDROCODONE-ACETAMINOPHEN Inactive BACTRIM DS 800-160 MG TABS by mouth twice a day 11/05 BACTRIM DS 800-160 MG TABS SULFAMETHOXAZOLE-TRIMETHOPRIM Inactive AMOXICILLIN 875 MG TABS 1 tab by mouth twice daily 201 07/18/07 AMOXICILLIN 875 MG TABS 462342 AMOXICILLIN Inactive KEFLEX 500 MG CAP 1 po tid x 10 days KEFLEX 500 MG CAP 673528 CEPHALEXIN Inactive AMOXICILLIN 875 MG TABS 1 tab by mouth twice daily 201 07/19/27 AMOXICILLIN 875 MG TABS 262828 AMOXICILLIN Inactive AMOXICILLIN 875 MG TABS 1 tab by mouth twice daily 08/09/13 AMOXICILLIN 875 MG TABS 630677 AMOXICILLIN Inactive CIPRO 500 MG TAB 1 tablet by mouth twice daily CIPRO 500 MG TAB 271713 CIPROFLOXACIN HCL Inactive BACTRIM DS 800-160 MG TAB 1 tab by mouth twice daily 2 BACTRIM DS 800-160 MG TAB TRIMETHOPRIM-SULFAMETHOXAZOLE Inac tive LEVAQUIN 500 MG TABS 1 PO q day x 7 days LEVAQUIN 500 MG TABS 514008 LEVOFLOXACIN Inactive Advance Directives Directive Description Start Date PERMISSION TO SHARE Immunizations Vaccine Administration Date Value Standard Alf cription Seasonal influenza vaccine, injectable, containing preservative, for > 3 years old (Afluria, FluLaval, Fluzone, Fluvirin, Fluarix, Agriflu(>= 18 yo)) Fluzone (>3 yrs.) [[id number]] Influenza, seasonal, inject able Seasonal influenza vaccine, injectable, preservative free, for > 3 years old (Afluria, FluLaval, Fluzone, Fluvirin, Fluarix, Agriflu(>= 18 yo)) Fluzone preservative free (>3 yrs.) [[id number]] Influenza, seasonal, injectable, preservative free Seasonal influenza vaccine, injectable, containing preservative, for > 3 years old (Afluria, FluLaval, Fluzone, Fluvirin, Fluarix, Agriflu(>= 18 yo)) Fluzone (>3 yrs.) [[id number]] Influenza, seasonal, inject able Seasonal influenza vaccine, injectable, containing preservative, for > 3 years old (Afluria, FluLaval, Fluzone, Fluvirin, Fluarix, Agriflu(>= 18 yo)) Fluzone (>3 yrs.) [[id number]] Influenza, seasonal, inject able dT (Diphtheria and [...] mg/dL Chart Maintenance: Outside labs entered on [employer]heet - Hematology leukocyte count, blood 8.3 10*3/mm3 erythrocyte (RBC) count 5.2 10*6/mm3 hemoglobin, blood 14.2 g/dL hematocrit, blood 42.6 % mean corpuscular volume, RBC 82.4 fL mean corpuscular hemoglobin, RBC 27.5 pg red blood cell distribution width 12.9 % platelet count 316 10*3/mm3 Lab Report: CBC W/DIFF, Comp. Metabolic Panel, Thyroid Stimulating Hormo ... - Chemistry sodium, serum 140 mmol/L 287-203 4225/02/24 potassium, serum 4.3 mmol/L 3.5-5.2 chloride, serum [...] 4.3-6.0 Lab Report: T3, TOTAL, INSULIN - Bulldozer Engineer ry triiodothyronine, serum 78 ng/dL 76-181 Lab [...] mg/dL Encounters Code Encounter Date Provider Facility CPT-15256 Level 3 Est. Patient 14:11:58 CDT Kalpesh goins MD [facility] CPT-33546 Level 3 Est. Patient 16:50:00 CDT Michelle MERCADO [facility] CPT-58194 Level 3 Est. Patient 17:11:32 BURN OUT SCARFING OPERATOR Brandie bates MD PhD [facility] CPT-28595 Level 3 Est. Patient 16:31:47 BURN OUT SCARFING OPERATOR Shola MCGILL [facility] CPT-24410 Level 3 Est. Patient 17:51:10 BURN OUT SCARFING OPERATOR Abhinav Galvan MD [facility] CPT-41060 Level 4 Est. Patient 12:54:56 BURN OUT SCARFING OPERATOR Kalpesh goins MD [facility] CPT-76464 Level 4 Est. Patient 12:53:56 BURN OUT SCARFING OPERATOR Kalpesh goins MD [facility] CPT-68843 Level 3 Est. Patient 17:56:58 CDT Shola MCGILL [facility] CPT-55517 Level 3 Est. Patient 14:26:20 CDT Janak butcher [facility] CPT-96592 Level 3 Est. Patient 09:38:41 CDT Shola Wright [facility] CPT-84563 Level 3 Est. Patient 14:45:26 CDT Edilberto tiwari [facility] CPT-37853 Level 3 Est. Patient 10:51:33 CDT Hira muniz [facility] CPT-01780 Level 3 Est. Patient 11:57:55 BURN OUT SCARFING OPERATOR Shola Thao Adriana [facility] CPT-24849 Level 3 Est. Patient 09:53:33 BURN OUT SCARFING OPERATOR Edilberto tiwari [facility] CPT-83275 Level 3 Est. Patient 14:42:54 BURN OUT SCARFING OPERATOR Abhinav Galvan MD [facility] CPT-69504 Level 3 Est. Patient 15:10:[address] [facility] CPT-76580 Level 3 Est. Patient 15:20:20 CDT Theo dennis MD [facility] CPT-28835 Level 2 Est. Patient 14:08:57 CDT Kalpesh goins MD [facility] CPT-89135 Level 3 Est. Patient 13:56:19 CDT Abdirahman Rios MD [facility] CPT-86044 Level 3 Est. Patient 13:59:37 CDT Abdirahman Rios MD [facility] CPT-29659 Level 2 Est. Patient 14:44:59 CDT Kalpesh goins MD [facility] [place]-77867 Level 3 Est. Patient 06:06:23 CDT Edilberto tiwari [facility] CPT-27674 Level 3 Est. Patient 15:23:54 CDT Abdirahman Rios MD [facility] CPT-15466 Level 3 Est. Patient 15:43:49 CDT Abdirahman Rios MD [facility] CPT-46759 Level 3 Est. Patient 12:46:47 BURN OUT SCARFING OPERATOR Abdirahman Rios MD [facility] CPT-83809 Level 3 Est. Patient 08:13:35 BURN OUT SCARFING OPERATOR bAdirahman Rios MD [facility] CPT-88773 Level 2 Est. Patient 09:36:42 BURN OUT SCARFING OPERATOR Abdirahman Rios MD [facility] CPT-16847 Level 3 Est. Patient 10:56:43 CDT Abdirahman Rios MD [facility] CPT-80343 Level 3 Est. Patient 18:24:52 CDT Abdirahman Rios MD [facility] CPT-66964 Level 3 Est. Patient 13:27:22 CDT Abdirahman Rios MD [facility] Procedures Code Procedure Name Date Entry Date Standard Desc ription CPT-OV Office Visit 15:34:48 CDT CPT-54800 Postop F/U Visit 14:50:12 CDT CPT-42548 Postop F/U Visit 14:41:10 CDT CPT-35006 Venipuncture Draw Fee 11:38:04 BURN OUT SCARFING OPERATOR CPT-11134 Postop F/U Visit 19:02:59 BURN OUT SCARFING OPERATOR CPT-78989 Postop F/U Visit 12:04:54 BURN OUT SCARFING OPERATOR CPT-76234 Administration single or combination vac cine inc oral 15:56:43 CDT CPT-86464 Influenza split virus > age 3 15:56:43 CDT CPT-28913 Hand comp min 3V 14:25:19 CDT CPT-18282 Postop F/U Visit 21:40:51 CDT CPT-32682 Postop F/U Visit 10:58:43 CDT CPT-49844 Administration single or combination vac cine inc oral 12:33:54 BURN OUT SCARFING OPERATOR CPT-20173 Influenza Preservative Free split virus >age 3 12:33:54 BURN OUT SCARFING OPERATOR CPT-03672 Administration single or combination vac cine inc oral 09:30:51 CDT CPT-28842 Influenza split virus > age 3 09:30:51 CDT CPT-46773 Postop F/U Visit 15:14:53 CDT CPT-51509 Postop F/U Visit 13:50:14 CDT CPT-88972 Postop F/U Visit 13:34:52 CDT CPT-OV Office Visit 16:55:03 CDT CPT-66914 Guy of cervix w bx ECC 13:32:50 CDT 10/19 CPT-J1885 Toradol 60 mg (Ketorolac) 15:31:59 CDT 2011 CPT-J1885 Toradol 60 mg (Ketorolac) 15:23:54 CDT 2011 CPT-74331 Visit 11:34:37 BURN OUT SCARFING OPERATOR CPT-67042 Visit 10:52:39 BURN OUT SCARFING OPERATOR CPT-49110 Visit 10:12:02 BURN OUT SCARFING OPERATOR CPT-25450 Visit 11:22:43 BURN OUT SCARFING OPERATOR CPT-67020 Visit 11:24:12 BURN OUT SCARFING OPERATOR CPT-72933 Visit 10:47:05 BURN OUT SCARFING OPERATOR CPT-OV Office Visit 10:26:16 BURN OUT SCARFING OPERATOR CPT-OV Office Visit 15:34:31 BURN OUT SCARFING OPERATOR CPT-22889 Visit 10:42:08 BURN OUT SCARFING OPERATOR CPT-69065 Visit 10:52:45 BURN OUT SCARFING OPERATOR CPT-000 Give Appropriate Flu Vaccine 16:56:41 CDT 2 CPT-78787 Administration single or combination vac cine inc oral 10:33:21 CDT CPT-80159 Influenza split virus > age 3 10:33:21 CDT CPT-95243 Visit 13:23:09 CDT CPT-33830 Visit 18:24:52 CDT CPT-33543 Sono OB comp > 14 weeks 12:07:49 CDT 04/07
--- OUTSIDE RECORDS SUMMARY | 2020-01-18 17:30 | XMS REPORT | Clinical Summary ---
Author Author Admin, Jeri Rashid Organization [facility] Address Unknown Phone Allergies, Adverse [...] Pain in limb BRONCHITIS, ACUTE 466.0 Resolved Godo espitia MD Acute bronchitis BACK PAIN 724.5 [...] collier MD Swelling of limb ICD-729.81 Inactive Godo Julian MD Hand pain, right ICD-729.5 Inactive Good Julian MD Pilonidal cyst ICD-685.1 Inactive Good Matos MD Aftercare following surgery of the skin and subcutaneous tis braden, NEC ICD-V58.77 Inactive Good Julian MD Medication List Medication Instructions Start Date Stop Date Generic Name NDC Status Provider Patient Instruction BACTRIM DS 800-160 MG TABS by mouth twice a day 11/05 SULFAMETHOXAZOLE-TRIMETHOPRIM 11851611821 No Longer Active Good Julian MD Active IBUPROFEN 800 MG TABS 1 tid prn IBUPROFEN 27048048274 Active Good Julian MD Active ENDOCET 10-325 MG TABS 1 q 6 hr prn OXYCODONE-A CETAMINOPHEN 42613970452 Active Shola MCGILL Active HYDROCODONE-ACETAMINOPHEN 7.5-325 MG TABS 1 four times a day as needed for pain HYDROCODONE-ACETAMINOPHEN 69815174295 No Longer Activ crystal Julian MD Active KEFLEX 500 MG CAP 1 tab po tid CEPHALEXIN 751460 13022 No Longer Active Hira Moser APRN Active IBUPROFEN 800 MG TAB 1 pill three times daily as needed for pain IBUPROFEN 36105422742 No Longer Active Kalpesh Dong MD Active PROMETHAZINE-CODEINE 6.25-10 MG/5ML SYRP 1 tsp every 6 hrs prn c ough PROMETHAZINE-CODEINE 54840054781 No Longer Active Kalpesh Carr Active ALPRAZOLAM 0.5 MG TABS 1 PO bid PRN ALPRAZOLAM 206508 14659 Active Shoal MCGILL Active HYDROCODONE-ACETAMINOPHEN 5-325 MG TABS 1 tab by mouth every 6 hours as needed HYDROCODONE-ACETAMINOPHEN 91502175490 No Longer Activ e Shola MCGILL Active CEPHALEXIN 500 MG CAPS 1 PO bid x 7 days CEPHAL EXIN 85454041003 No Longer Active Shola MCGILL Active BACTRIM DS 800-160 MG TAB 1 tab by mouth twice daily 2 TRIMETHOPRIM-SULFAMETHOXAZOLE 94030884033 No Longer Active Kalpesh Dong MD Active HYDROCODONE-ACETAMINOPHEN 5-325 MG TABS 1 PO tid PRN pain 5 HYDROCODONE-ACETAMINOPHEN 04411022050 No Longer Active Abhinav Galvan MD Active IMPLANON 68 MG IMPL IMPLANTED IN LEFT ARM ETONO GESTREL 60108579277 No Longer Active 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 NUDE MODEL Active AMOXICILLIN 500 MG TABS 2 tabs PO bid x 10 d AM OXICILLIN 69930996199 No Longer Active Kalpesh Dong MD Active LEVAQUIN 500 MG TABS 1 PO q day x 7 days LEVOFL OXACIN 70722077962 No Longer Active Shola MCGILL Active PROAIR HFA 108 (90 BASE) MCG/ACT AERS 2 puff q 4-6 hrs PRN ALBUTEROL SULFATE 87864501846 Active Shola MCGILL Acti ve FIORICET 50-325-40 MG TABS 2 PO q 8 hrs PRN FOSTER [id number] 96040605267 Active Abdirahman Rios MD Active AMITRIPTYLINE HCL 25 MG TAB 1 tab by mouth daily 60 minutes before bedtime AMITRIPTYLINE HCL 65185382773 No Longer Active Shola MCGILL Active LORTAB 5 5-500 MG TABS 1/2 to 1 tablet by mouth go ry 6 hours as needed for pain HYDROCODONE-ACETAMINOPHEN 31552374424 No Longer Active Shola MCGILL Active CEPHALEXIN 500 MG TABS Take one by mouth four times daily, morning, noon, early evening and bedtime. CEPHALEXIN 06106023291 No Long er Active Hira Moser NUDE MODEL Active TYLENOL/CODEINE #3 300-30 MG TAB 1-2 po q6hr PRN Pain ACETAMINOPHEN-CODEINE 64199485960 No Longer Active Edilberto Marino DO Active PRISTIQ 50 MG [id number] 1 po qd DESVENLAFAXI NE SUCCINATE 24067205890 No Longer Active Edilberto Marino DO Active PENICILLIN V POTASSIUM 500 MG TAB 1 four times a day 2 PENICILLIN V POTASSIUM 56859237855 No Longer Active Edilberto Marino DO Active DOXYCYCLINE HYCLATE 100 MG CAPS Take one (1) tablet by mouth twice a day DOXYCYCLINE HYCLATE 22216806472 No Longer Active Ronnie Galvan MD Active HYDROCODONE-ACETAMINOPHEN 5-325 MG TABS 1 po q 6hr PRN Pain 2011 HYDROCODONE-ACETAMINOPHEN 06469441763 No Longer Active Patri joan Perez RN Active BACTRIM DS 800-160 MG TAB 1 tab by mouth twice daily 2 TRIMETHOPRIM-SULFAMETHOXAZOLE 48769316405 No Longer Active Kalpesh Dong MD Active LORTAB 5 5-500 MG TABS 1/2 to 1 tablet by mouth go ry 4 hours as needed for pain HYDROCODONE-ACETAMINOPHEN 30484550194 No Longer Active Kalpesh Dong MD Active GENERESS FE 0.8-25 MG-MCG CHEW Take one by mouth daily NORETHIN-ETH ESTRADIOL-FE 91144774277 No Longer Active Kalpesh Dong MD Active HYDROCODONE-ACETAMINOPHEN 7.5-500 MG TABS 1-2 every 4 hours as needed HYDROCODONE-ACETAMINOPHEN 18754572601 No Longer Activ e Kalpesh Dong MD Active FERROUS SULFATE 325 (65 FE) MG TABS 1 tablet by mouth twice yung y FERROUS SULFATE 45745936843 No Longer Active Kalpesh Dong MD Active IBUPROFEN 600 MG TAB 1 po q6-8hr PRN IBUPROFEN 78210305320 No Longer Active Kalpesh Dong MD Active SPIRONOLACTONE 25 MG TAB 1 tablet by mouth daily 01/22 SPIRONOLACTONE 95624285229 No Longer Active Kalpesh Dong MD Acti ve HYDROCODONE-ACETAMINOPHEN 7.5-325 MG TABS 1 po QID PRN Pain 2011 HYDROCODONE-ACETAMINOPHEN 27493500618 No Longer Active Kalpesh Dong MD Active CLINDAMYCIN HCL 300 MG CAPS 1 po q6hr x 7 days CLINDAMYCIN HCL 07827350340 No Longer Active Edilberto Marino DO Active PREDNISONE 20 MG TAB 2 tabs daily for 4 days, 1 t ab daily for 4 days, 1/2 tab daily for 4 days PREDNISONE 36058730495 No Longer Active Edilberto Marino DO Active PERCOCET 5-325 MG TABS 1 tablet by mouth every 6 hours as ne eded for pain OXYCODONE-ACETAMINOPHEN 94094001120 No Longer Active Abdirahman Rios MD Active VITAMINS TABS Take one by mouth daily MV & MIN W/FE-FA TABS 90245091149 No Longer Active Abdirahman Rios MD Active LUIS 3-0.02 MG TABS 1 tablet by mouth daily as directed DROSPIRENONE-ETHINYL ESTRADIOL 19115309136 No Longer Active Abdirahman Rios MD Active LORATADINE 10 MG TABS 1 tablet by mouth daily L ORATADINE 80908067829 No Longer Active Kalpesh Dong MD Active HYDROCODONE-ACETAMINOPHEN 5-325 MG TABS 1 po q 6hr PRN Pain 2010 HYDROCODONE-ACETAMINOPHEN 72645945241 No Longer Active Edilberto Marino DO Active BACTRIM DS 800-160 MG TAB 1 tab by mouth twice daily 2 TRIMETHOPRIM-SULFAMETHOXAZOLE 46345548322 No Longer Active Abdirahman Rios MD Active 28-0.8 MG TABS Take one by mouth daily 09/20 VIT-FE FUMARATE-FA 82977153022 No Longer Active Abdirahman Rios MD Active CIPRO 500 MG TAB 1 tablet by mouth twice daily CIPROFLOXACIN HCL 19362650234 No Longer Active Abdirahman Rios MD Active BENADRYL 25 MG CAP 1 po q8hr PRN Congestion DIPHENHYDRAMINE HCL 92818648076 No Longer Active Abdirahman Rios MD Active ZOLOFT 50 MG TAB 1 po qd SERTRALINE HCL 263954 99095 No Longer Active Abdirahman Rios MD Active AMOXICILLIN 875 MG TABS 1 tab by mouth twice daily 201 08/09/13 AMOXICILLIN 91342135571 No Longer Active Abdirahman Rios MD Activ e AMOXICILLIN 875 MG TABS 1 tab by mouth twice daily 201 07/19/27 AMOXICILLIN 37262091137 No Longer Active Abdirahman Rios MD Activ e BACTRIM DS 800-160 MG TAB 2 tab by mouth twice daily 2 TRIMETHOPRIM-SULFAMETHOXAZOLE 35993397452 No Longer Active Abdirahman Rios MD Active KEFLEX 500 MG CAP 1 po tid x 10 days CEPHALEXIN 83329119530 No Longer Active Abdirahman Rios MD Active AMOXICILLIN 875 MG TABS 1 tab by mouth twice daily 201 07/18/07 AMOXICILLIN 30569291522 No Longer Active Abdirahman Rios MD Activ e BACTRIM DS 800-160 MG TAB 2 tab by mouth twice daily 2 BACTRIM DS 800-160 MG TAB TRIMETHOPRIM-SULFAMETHOXAZOLE Inactive ZOLOFT 50 MG TAB 1 po qd ZOLOFT 50 MG TAB 3129 41 SERTRALINE HCL Inactive BENADRYL 25 MG CAP 1 po q8hr PRN Congestion BENADRYL 25 MG CAP 4482389 DIPHENHYDRAMINE HCL Inactive 28-0.8 MG TABS Take one by mouth daily 09/20 28-0.8 MG TABS VIT-FE FUMARATE-FA Inactive HYDROCODONE-ACETAMINOPHEN 5-325 MG TABS 1 po q 6hr PRN Pain 2010 HYDROCODONE-ACETAMINOPHEN 5-325 MG TABS 053628 HYDROCODONE-ACETAMINOPHEN Inactive LORATADINE 10 MG TABS 1 tablet by mouth daily LORATADINE 10 MG TABS 191606 LORATADINE Inactive LUIS 3-0.02 MG TABS 1 tablet by mouth daily as directed LUIS 3-0.02 MG TABS DROSPIRENONE-ETHINYL ESTRADIOL Inactive VITAMINS TABS Take one by mouth daily VITAMINS TABS MV & MIN W/FE-FA TABS Inactive PERCOCET 5-325 MG TABS 1 tablet by mouth every 6 hours as ne eded for pain PERCOCET 5-325 MG TABS 6059864 OXYCODONE-ACETAMIN OPHEN Inactive PREDNISONE 20 MG TAB 2 tabs daily for 4 days, 1 t ab daily for 4 days, 1/2 tab daily for 4 days PREDNISONE 20 MG TAB 650356 PREDNISON E Inactive CLINDAMYCIN HCL 300 MG CAPS 1 po q6hr x 7 days CLINDAMYCIN HCL 300 MG CAPS 194732 CLINDAMYCIN HCL Inactive HYDROCODONE-ACETAMINOPHEN 7.5-325 MG TABS 1 po QID PRN Pain 2011 HYDROCODONE-ACETAMINOPHEN 7.5-325 MG TABS 017786 HYDROCODONE-ACETAMINOPHEN Inactive SPIRONOLACTONE 25 MG TAB 1 tablet by mouth daily 01/22 SPIRONOLACTONE 25 MG TAB 225555 SPIRONOLACTONE Inactive IBUPROFEN 600 MG TAB 1 po q6-8hr PRN IBUPROFEN 600 MG TAB 670378 IBUPROFEN Inactive FERROUS SULFATE 325 (65 FE) MG TABS 1 tablet by mouth twice yung y FERROUS SULFATE 325 (65 FE) MG TABS 094684 FERROUS SULF ATE Inactive HYDROCODONE-ACETAMINOPHEN 7.5-500 MG TABS 1-2 every 4 hours as needed HYDROCODONE-ACETAMINOPHEN 7.5-500 MG TABS 408522 HYDROCODONE-ACETAMINOPHEN Inactive GENERESS FE 0.8-25 MG-MCG CHEW [...] PRN Pain 2011 HYDROCODONE-ACETAMINOPHEN 5-325 MG TABS 271463 HYDROCODONE-ACETAMINOPHEN Inactive DOXYCYCLINE HYCLATE 100 MG CAPS Take one (1) tablet by mouth twice a day DOXYCYCLINE HYCLATE 100 MG CAPS 708383 DOXYCYCLINE HYCLATE Inactive PENICILLIN V POTASSIUM 500 MG TAB 1 four times a day 2 PENICILLIN V POTASSIUM 500 MG TAB 659804 PENICILLIN V POTASSIUM [place] ctive PRISTIQ 50 MG [id number] 1 po qd PRISTIQ 50 MG [id number] DESVENLAFAXINE SUCCINATE Inactive TYLENOL/CODEINE #3 300-30 MG TAB 1-2 po q6hr PRN Pain TYLENOL/CODEINE #3 300-30 MG TAB 305136 ACETAMINOPHEN-CODEINE Inact krishna CEPHALEXIN 500 MG TABS Take one by mouth four times daily, morning, noon, early evening and bedtime. CEPHALEXIN 500 MG TABS 501339 CEPHALEXIN Inactive LORTAB 5 5-500 MG TABS 1/2 to 1 tablet by mouth go ry 6 hours as needed for pain LORTAB 5 5-500 MG TABS HYDROCODONE-A CETAMINOPHEN Inactive AMITRIPTYLINE HCL 25 MG TAB 1 tab by mouth daily 60 minutes before bedtime AMITRIPTYLINE HCL 25 MG TAB 216651 AMITRIPTYLINE HCL Inactive AMOXICILLIN 500 MG TABS 2 tabs PO bid x 10 d 7 AMOXICILLIN 500 MG TABS 390784 AMOXICILLIN Inactive IMPLANON 68 MG IMPL IMPLANTED IN LEFT ARM IMPLANON 68 MG IMPL ETONOGESTREL Inactive HYDROCODONE-ACETAMINOPHEN 5-325 MG TABS 1 PO tid PRN pain 5 HYDROCODONE-ACETAMINOPHEN 5-325 MG TABS 140324 HYDROCODONE-ACETAMIN OPHEN Inactive BACTRIM DS 800-160 MG TAB 1 tab by mouth twice daily 2 BACTRIM DS 800-160 MG TAB TRIMETHOPRIM-SULFAMETHOXAZOLE Inac tive CEPHALEXIN 500 MG CAPS 1 PO bid x 7 days CEPHALEXIN 500 MG CAPS 688593 CEPHALEXIN Inactive HYDROCODONE-ACETAMINOPHEN 5-325 MG TABS 1 tab by mouth every 6 hours as needed HYDROCODONE-ACETAMINOPHEN 5-325 MG TABS 640987 HYDROCODONE-ACETAMINOPHEN Inactive PROMETHAZINE-CODEINE 6.25-10 MG/5ML SYRP 1 tsp every 6 hrs prn c ough PROMETHAZINE-CODEINE 6.25-10 MG/5ML SYRP 403857 PROMETH AZINE-CODEINE Inactive IBUPROFEN 800 MG TAB 1 pill three times daily as needed for pain IBUPROFEN 800 MG TAB 669054 IBUPROFEN Inactive KEFLEX 500 MG CAP 1 tab po tid KEFLEX 500 MG CAP 400499 CEPHALEXIN Inactive HYDROCODONE-ACETAMINOPHEN 7.5-325 MG TABS 1 four times a day as needed for pain HYDROCODONE-ACETAMINOPHEN 7.5-325 MG TABS 540889 HYDROCODONE-ACETAMINOPHEN Inactive BACTRIM DS 800-160 MG TABS by mouth twice a day 11/05 BACTRIM DS 800-160 MG TABS SULFAMETHOXAZOLE-TRIMETHOPRIM Inactive AMOXICILLIN 875 MG TABS 1 tab by mouth twice daily 201 07/18/07 AMOXICILLIN 875 MG TABS 487673 AMOXICILLIN Inactive KEFLEX 500 MG CAP 1 po tid x 10 days KEFLEX 500 MG CAP 570395 CEPHALEXIN Inactive AMOXICILLIN 875 MG TABS 1 tab by mouth twice daily 201 07/19/27 AMOXICILLIN 875 MG TABS 641001 AMOXICILLIN Inactive AMOXICILLIN 875 MG TABS 1 tab by mouth twice daily 08/09/13 AMOXICILLIN 875 MG TABS 460875 AMOXICILLIN Inactive CIPRO 500 MG TAB 1 tablet by mouth twice daily CIPRO 500 MG TAB 894440 CIPROFLOXACIN HCL Inactive BACTRIM DS 800-160 MG TAB 1 tab by mouth twice daily 2 BACTRIM DS 800-160 MG TAB TRIMETHOPRIM-SULFAMETHOXAZOLE Inac tive LEVAQUIN 500 MG TABS 1 PO q day x 7 days LEVAQUIN 500 MG TABS 351026 LEVOFLOXACIN Inactive Advance Directives Directive Description Start Date PERMISSION TO SHARE Immunizations Vaccine Administration Date Value Standard Alf cription Seasonal influenza vaccine, injectable, containing preservative, for > 3 years old (Afluria, FluLaval, Fluzone, Fluvirin, Fluarix, Agriflu(>= 18 yo)) Fluzone (>3 yrs.) [[id number]] Influenza, seasonal, inject able Seasonal influenza vaccine, injectable, preservative free, for > 3 years old (Afluria, FluLaval, Fluzone, Fluvirin, Fluarix, Agriflu(>= 18 yo)) Fluzone preservative free (>3 yrs.) [[id number]] Influenza, seasonal, injectable, preservative free Seasonal influenza vaccine, injectable, containing preservative, for > 3 years old (Afluria, FluLaval, Fluzone, Fluvirin, Fluarix, Agriflu(>= 18 yo)) Fluzone (>3 yrs.) [[id number]] Influenza, seasonal, inject able Seasonal influenza vaccine, injectable, containing preservative, for > 3 years old (Afluria, FluLaval, Fluzone, Fluvirin, Fluarix, Agriflu(>= 18 yo)) Fluzone (>3 yrs.) [DVC337] Influenza, seasonal, inject able dT (Diphtheria and [...] mg/dL Chart Maintenance: Outside labs entered on [employer] - Hematology leukocyte count, blood 8.3 10*3/mm3 erythrocyte (RBC) count 5.2 10*6/mm3 hemoglobin, blood 14.2 g/dL hematocrit, blood 42.6 % mean corpuscular volume, RBC 82.4 fL mean corpuscular hemoglobin, RBC 27.5 pg red blood cell distribution width 12.9 % platelet count 316 10*3/mm3 Lab Report: CBC W/DIFF, Comp. Metabolic Panel, Thyroid Stimulating Hormo ... - Chemistry sodium, serum 140 mmol/L 853-764 3553/02/24 potassium, serum 4.3 mmol/L 3.5-5.2 chloride, serum [...] Lab Report: T3, TOTAL, INSULIN - Flight Nurse ry triiodothyronine, serum 78 ng/dL 76-181 [...] mg/dL Encounters Code Encounter Date Provider Facility CPT-20768 Level 3 Est. Patient 14:11:58 CDT Kalpesh goins MD [facility] CPT-20206 Level 3 Est. Patient 16:50:00 CDT Michelle MERCADO [facility] CPT-89631 Level 3 Est. Patient 17:11:32 TAX ADJUSTER Brandie bates MD PhD [facility] CPT-85646 Level 3 Est. Patient 16:31:47 TAX ADJUSTER Shola MCGILL [facility] CPT-52350 Level 3 Est. Patient 17:51:10 TAX ADJUSTER Abhinav Galvan MD [facility] CPT-60953 Level 4 Est. Patient 12:54:56 TAX ADJUSTER Kalpesh goins MD [facility] CPT-15530 Level 4 Est. Patient 12:53:56 TAX ADJUSTER Kalpesh goins MD [facility] CPT-34166 Level 3 Est. Patient 17:56:58 CDT Shola MCGILL [facility] CPT-77138 Level 3 Est. Patient 14:26:20 CDT Janak butcher [facility] CPT-05634 Level 3 Est. Patient 09:38:41 CDT Shola Wright [facility] CPT-12349 Level 3 Est. Patient 14:45:26 CDT Edilberto tiwari [facility] CPT-95627 Level 3 Est. Patient 10:51:33 CDT Hira muniz [facility] CPT-75344 Level 3 Est. Patient 11:57:55 TAX ADJUSTER Shola Thao Adriana [facility] CPT-00565 Level 3 Est. Patient 09:53:33 TAX ADJUSTER Edilberto tiwari [facility] CPT-51720 Level 3 Est. Patient 14:42:54 TAX ADJUSTER Abhinav Galvan MD [facility] CPT-27429 Level 3 Est. Patient 15:10:02 CDT Janak butcher [facility] CPT-18282 Level 3 Est. Patient 15:20:20 CDT Theo dennis MD [facility] CPT-25919 Level 2 Est. Patient 14:08:57 CDT Kalpesh goins MD [facility] CPT-44404 Level 3 Est. Patient 13:56:19 CDT Abdirahman Rios MD [facility] CPT-15856 Level 3 Est. Patient 13:59:37 CDT Abdirahman Rios MD [facility] CPT-64740 Level 2 Est. Patient 14:44:59 CDT Kalpesh goins MD [facility]-77256 Level 3 Est. Patient 06:06:23 CDT Edilberto tiwari [facility] CPT-31333 Level 3 Est. Patient 15:23:54 CDT Abdirahman Rios MD [facility] CPT-39092 Level 3 Est. Patient 15:43:49 CDT Abdirahman Rios MD [facility] CPT-25331 Level 3 Est. Patient 12:46:47 TAX ADJUSTER Abdirahman Rios MD [facility] CPT-95055 Level 3 Est. Patient 08:13:35 TAX ADJUSTER Abdirahman Rios MD [facility] CPT-95983 Level 2 Est. Patient 09:36:42 TAX ADJUSTER Abdirahman Rios MD [facility] CPT-72838 Level 3 Est. Patient 10:56:43 CDT Abdirahman Rios MD [facility] CPT-41078 Level 3 Est. Patient 18:24:52 CDT Abdirahman Rios MD [facility] CPT-38854 Level 3 Est. Patient 13:27:22 CDT Abdirahman Rios MD [facility] Procedures Code Procedure Name Date Entry Date Standard Desc ription CPT-OV Office Visit 15:34:48 CDT CPT-11741 Postop F/U Visit 14:50:12 CDT CPT-30850 Postop F/U Visit 14:41:10 CDT CPT-10033 Venipuncture Draw Fee 11:38:04 TAX ADJUSTER CPT-85815 Postop F/U Visit 19:02:59 TAX ADJUSTER CPT-68771 Postop F/U Visit 12:04:54 TAX ADJUSTER CPT-70428 Administration single or combination vac cine inc oral 15:56:43 CDT CPT-38701 Influenza split virus > age 3 15:56:43 CDT CPT-28677 Hand comp min 3V 14:25:19 CDT CPT-31562 Postop F/U Visit 21:40:51 CDT CPT-57033 Postop F/U Visit 10:58:43 CDT CPT-86049 Administration single or combination vac cine inc oral 12:33:54 TAX ADJUSTER CPT-53235 Influenza Preservative Free split virus >age 3 12:33:54 TAX ADJUSTER CPT-66413 Administration single or combination vac cine inc oral 09:30:51 CDT CPT-64720 Influenza split virus > age 3 09:30:51 CDT CPT-30753 Postop F/U Visit 15:14:53 CDT CPT-81048 Postop F/U Visit 13:50:14 CDT CPT-00665 Postop F/U Visit 13:34:52 CDT CPT-OV Office Visit 16:55:03 CDT CPT-81345 [place] of cervix w bx ECC 13:32:50 CDT 10/19 CPT-J1885 Toradol 60 mg (Ketorolac) 15:31:59 CDT 2011 CPT-J1885 Toradol 60 mg (Ketorolac) 15:23:54 CDT 2011 CPT-84554 Visit 11:34:37 TAX ADJUSTER CPT-42417 Visit 10:52:39 TAX ADJUSTER CPT-23996 Visit 10:12:02 TAX ADJUSTER CPT-74533 Visit 11:22:43 TAX ADJUSTER CPT-43296 Visit 11:24:12 TAX ADJUSTER CPT-40988 Visit 10:47:05 TAX ADJUSTER CPT-OV Office Visit 10:26:16 TAX ADJUSTER CPT-OV Office Visit 15:34:31 TAX ADJUSTER CPT-20359 Visit 10:42:08 TAX ADJUSTER CPT-36532 Visit 10:52:45 TAX ADJUSTER CPT-000 Give Appropriate Flu Vaccine 16:56:41 CDT 2 CPT-25039 Administration single or combination vac cine inc oral 10:33:21 CDT CPT-82057 Influenza split virus > age 3 10:33:21 CDT CPT-14190 Visit 13:23:09 CDT CPT-67708 Visit 18:24:52 CDT CPT-03106 Sono OB comp > 14 weeks 12:07:49 CDT 04/07
--- OUTSIDE RECORDS SUMMARY | 2020-01-18 17:30 | XMS REPORT ---
Author Author Jeri PRADO Organization [facility] Address [address] [place] [address] Care Team Providers Care Sports Physician Name Role Phone CADE PRADO Unavailable PROBLEMS Type Condition ICD9-CM Code [id number] Code Onset Dates Condition S tatus SNOMED Code Problem Pain at surgical incision R20.8 Acti ve 13800856 Problem Interstitial cystitis N30.10 Active 302823102 Problem Ingrown left big toenail L60.0 Activ e 978065026 Problem Other chronic pain G89.29 Active 8 3348276 Problem Encounter for immunization Z23 Act krishna 336092441 Problem Pilonidal cyst L05.91 Active 32160 008 Problem Ulcer L98.499 Active 892892059 ALLERGIES No Information SOCIAL HISTORY Never Assessed PLAN OF CARE VITAL SIGNS MEDICATIONS Medication Instructions Dosage Frequency Start Date End Date Duration S tatus Hydrocodone-Acetaminophen 7.5-325 MG Orally every 4 hrs as needed 1 tablet Jul, Active RESULTS No Results PROCEDURES No Known [...]
--- OUTSIDE RECORDS SUMMARY | 2020-01-18 17:30 | XMS REPORT ---
Author Author [facility] Medic al Staff, TOMY Rashid Organization [facility] Address [address] [place], [place] [address] Phone [phone] Care Team Providers Care Automotive Brake Specialist Name Role Phone CHRISTOPHER YORK, CAROLEE PP [phone] Summary purpose TRANSITION OF CARE AUTO GENERATION [...] Oxygen Saturation 98% :54 BP Systolic 134mmHg 77-83-386980:54 BP Diastolic 81mmHg :54 Temperature 99.2F :54 Height 63inches :53 Weight 235LB :53 Social history Type Value Smoking Status CURRENT EVERY DAY SMOKER Treatment Plan No treatment plan text is available for this visit. Hospital discharge instructions Dismissal Condition good Disposition on DC home DC Inst/Educ Give yes Med/Side Effects Rev yes
--- OUTSIDE RECORDS SUMMARY | 2020-01-18 17:30 | XMS REPORT | Clinical Summary ---
Author Author Admin, Jeri Rashid Organization [facility] Address Unknown Phone Unavailable Allergies, Adverse [...] Julian MD FAMILY PLANNING ICD-V25.09 Inactive Good Juilan MD HIDRADENITIS SUPPURATIVA ICD-705.83 Inactive Good Julian [...] 1 every 6 hours as needed OXYCODONE-ACETAMINOPHEN [id number] No Longer Active Shola MCGILL Active LC-5 LIDOCAINE 5 % CREA apply 1 time daily to affected area 2013 LIDOCAINE (ANORECTAL) 16359604631 No Longer Active Hira muniz BRAKE REPAIR SUPERVISOR Active HYDROCODONE-ACETAMINOPHEN 5-325 MG TABS 2 tablets by m outh every 8 hours as needed for pain HYDROCODONE-ACETAMINOPHEN [id number] Acti ve Shola MCGILL Active HYDROCODONE-ACETAMINOPHEN 10-325 MG TABS 1 by mouth ev chaka 8 hours as needed for pain HYDROCODONE-ACETAMINOPHEN 44461959895 No Longer Active Jillina Frazell BRAKE REPAIR SUPERVISOR Active LORATADINE 10 MG TABS 1 tablet by mouth daily L ORATADINE 34882308976 No Longer Active Jillina Frazell BRAKE REPAIR SUPERVISOR Active DIFLUCAN 150 MG TAB 1 qODay x 2 doses FLUCONAZO LE 48666979288 No Longer Active Jillina Frazell BRAKE REPAIR SUPERVISOR Active CYCLOBENZAPRINE HCL 10 MG TABS 1/2 - 1 tab PO tid PRN back p ain, muscle spasm CYCLOBENZAPRINE HCL 61700978125 No Longer Active Karen herson Frazell BRAKE REPAIR SUPERVISOR Active AUGMENTIN 875-125 MG TAB 1 tab by mouth twice daily with food 20 22/05/07 AMOXICILLIN-POT CLAVULANATE 63915831998 No Longer Active Loida Rios MD Active MOBIC 15 MG TABS 1 tab daily MELOXICAM 668447834 14 No Longer Active Abdirahman Rios MD Active PERCOCET 7.5-325 MG TABS 1 PO tid PRN pain OXYCODONE-ACETAMINOPHEN 98333366041 No Longer Active Abdirahman Rios MD Active LIDODERM 5 % PTCH One patch to painful area IN N. On for 12 hrs, off for 12 hrs. LIDOCAINE 65332703177 No Longer Active Abdirahman Rios MD Active PERCOCET 7.5-325 MG TABS 1 PO q 8 hrs PRN pain OXYCODONE-ACETAMINOPHEN 83725907307 No Longer Active Shola MCGILL Active HYDROCODONE-ACETAMINOPHEN 7.5-325 MG TABS 1 by mouth e very 6 hours as needed for pain HYDROCODONE-ACETAMINOPHEN 67882885424 No Longer Active Good Julian MD Active CLINDAMYCIN HCL 300 MG CAPS 1 po QID x 7 days CLINDAMYCIN HCL 76677425052 No Longer Active Abdirahman Rios MD Activ e BACTRIM DS 800-160 MG TABS 1 po BID x 7 days 5 SULFAMETHOXAZOLE-TRIMETHOPRIM 88414095882 No Longer Active Abdirahman Rios MD Active ENDOCET 10-325 MG TABS 1 q 6 hr prn OXYCODONE-ACETAMINOPHEN 77687232561 No Longer Active Abdirahman Rios MD Active IBUPROFEN 800 MG TABS 1 tid prn IBUPROFEN 724032 07242 No Longer Active Abdirahman Rios MD Active BACTRIM DS 800-160 MG TABS by mouth twice a day 11/05 SULFAMETHOXAZOLE-TRIMETHOPRIM 02850918766 No Longer Active Good Julian MD Active HYDROCODONE-ACETAMINOPHEN 7.5-325 MG TABS 1 four times a day as needed for pain HYDROCODONE-ACETAMINOPHEN 03208502697 No Longer Activ e Good Julian MD Active KEFLEX 500 MG CAP 1 tab po tid CEPHALEXIN 859136 01504 No Longer Active Hira Moser APRN Active IBUPROFEN 800 MG TAB 1 pill three times daily as needed for pain IBUPROFEN 30587288069 No Longer Active Kalpesh Dong MD Active PROMETHAZINE-CODEINE 6.25-10 MG/5ML SYRP 1 tsp every 6 hrs prn c ou PROMETHAZINE-CODEINE 98869926042 No Longer Active Kalpesh Carr Active ALPRAZOLAM 0.5 MG TABS 1 PO bid PRN ALPRAZOLAM 931962 40301 Active Matthewllherson Moser APRN Active HYDROCODONE-ACETAMINOPHEN 5-325 MG TABS 1 tab by mouth every 6 hours as needed HYDROCODONE-ACETAMINOPHEN 92813882437 No Longer Activ e Shola MCGILL Active CEPHALEXIN 500 MG CAPS 1 PO bid x 7 days CEPHAL EXIN 83290948948 No Longer Active Shola MCGILL Active BACTRIM DS 800-160 MG TAB 1 tab by mouth twice daily 2 TRIMETHOPRIM-SULFAMETHOXAZOLE 99217502083 No Longer Active Kalpesh Dong MD Active HYDROCODONE-ACETAMINOPHEN 5-325 MG TABS 1 PO tid PRN pain 5 HYDROCODONE-ACETAMINOPHEN 75587096449 No Longer Active Abhinav Galvan MD Active IMPLANON 68 MG IMPL IMPLANTED IN LEFT ARM ETONO GESTREL 31312246856 No Longer Active 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 BRAKE REPAIR SUPERVISOR Active AMOXICILLIN 500 MG TABS 2 tabs PO bid x 10 d AM OXICILLIN 91397614751 No Longer Active Kalpesh Dong MD Active LEVAQUIN 500 MG TABS 1 PO q day x 7 days LEVOFL OXACIN 61028830723 No Longer Active Shola MCGILL Active PROAIR HFA 108 (90 BASE) MCG/ACT AERS 2 puff q 4-6 hrs PRN ALBUTEROL SULFATE 43375969117 Active Edilberto Marino DO Active FIORICET 50-325-40 MG TABS 2 PO q 8 hrs PRN FOSTER [id number] Active Shola MCGILL Active AMITRIPTYLINE HCL 25 MG TAB 1 tab by mouth daily 60 minutes before bedtime AMITRIPTYLINE HCL 02591947388 No Longer Active Shola MCGILL Active LORTAB 5 5-500 MG TABS 1/2 to 1 tablet by mouth go ry 6 hours as needed for pain HYDROCODONE-ACETAMINOPHEN 89901322246 No Longer Active Shola MCGILL Active CEPHALEXIN 500 MG TABS Take one by mouth four times daily, morning, noon, early evening and bedtime. CEPHALEXIN 08283276841 No Long er Active Hira Joyjanee ANDRADEN Active TYLENOL/CODEINE #3 300-30 MG TAB 1-2 po q6hr PRN Pain ACETAMINOPHEN-CODEINE 95271142160 No Longer Active Edilberto Marino DO Active PRISTIQ 50 MG [id number] 1 po qd DESVENLAFAXI NE SUCCINATE 76638612813 No Longer Active Edilberto Marino DO Active PENICILLIN V POTASSIUM 500 MG TAB 1 four times a day 2 PENICILLIN V POTASSIUM 48752650583 No Longer Active Edilberto Marino DO Active DOXYCYCLINE HYCLATE 100 MG CAPS Take one (1) tablet by mouth twice a day DOXYCYCLINE HYCLATE 56258884038 No Longer Active Ronnie Galvan MD Active HYDROCODONE-ACETAMINOPHEN 5-325 MG TABS 1 po q 6hr PRN Pain 2011 HYDROCODONE-ACETAMINOPHEN 52352562603 No Longer Active Patri joan Perez RN Active BACTRIM DS 800-160 MG TAB 1 tab by mouth twice daily 2 TRIMETHOPRIM-SULFAMETHOXAZOLE 94238097006 No Longer Active Kalpesh Dong MD Active LORTAB 5 5-500 MG TABS 1/2 to 1 tablet by mouth go ry 4 hours as needed for pain HYDROCODONE-ACETAMINOPHEN 35099944754 No Longer Active Kalpesh Dong MD Active GENERESS FE 0.8-25 MG-MCG CHEW Take one by mouth daily NORETHIN-ETH ESTRADIOL-FE 19213656243 No Longer Active Kalpesh Dong MD Active HYDROCODONE-ACETAMINOPHEN 7.5-500 MG TABS 1-2 every 4 hours as needed HYDROCODONE-ACETAMINOPHEN 98542522918 No Longer Activ e Kalpesh Dong MD Active FERROUS SULFATE 325 (65 FE) MG TABS 1 tablet by mouth twice yung y FERROUS SULFATE 74462531813 No Longer Active Kalpesh Dong MD Active IBUPROFEN 600 MG TAB 1 po q6-8hr PRN IBUPROFEN 45125156961 No Longer Active Kalpesh Dong MD Active SPIRONOLACTONE 25 MG TAB 1 tablet by mouth daily 01/22 SPIRONOLACTONE 26141284496 No Longer Active Kalpesh Dong MD Acti ve HYDROCODONE-ACETAMINOPHEN 7.5-325 MG TABS 1 po QID PRN Pain 2011 HYDROCODONE-ACETAMINOPHEN 58357082009 No Longer Active Kalpesh Dong MD Active CLINDAMYCIN HCL 300 MG CAPS 1 po q6hr x 7 days CLINDAMYCIN HCL 93062123699 No Longer Active Edilberto Marino DO Active PREDNISONE 20 MG TAB 2 tabs daily for 4 days, 1 t ab daily for 4 days, 1/2 tab daily for 4 days PREDNISONE 02406012557 No Longer Active Edilberto Marino DO Active PERCOCET 5-325 MG TABS 1 tablet by mouth every 6 hours as ne eded for pain OXYCODONE-ACETAMINOPHEN 80657645365 No Longer Active Abdirahman Rios MD Active VITAMINS TABS Take one by mouth daily MV & MIN W/FE-FA TABS 97453184628 No Longer Active Abdirahman Rios MD Active LUIS 3-0.02 MG TABS 1 tablet by mouth daily as directed DROSPIRENONE-ETHINYL ESTRADIOL 90363285868 No Longer Active Abdirahman Rios MD Active LORATADINE 10 MG TABS 1 tablet by mouth daily L ORATADINE 89377170756 No Longer Active Kalpesh Dong MD Active HYDROCODONE-ACETAMINOPHEN 5-325 MG TABS 1 po q 6hr PRN Pain 2010 HYDROCODONE-ACETAMINOPHEN 53550984647 No Longer Active Edilberto Marino DO Active BACTRIM DS 800-160 MG TAB 1 tab by mouth twice daily 2 TRIMETHOPRIM-SULFAMETHOXAZOLE 70054206829 No Longer Active Abdirahman Rios MD Active 28-0.8 MG TABS Take one by mouth daily 09/20 VIT-FE FUMARATE-FA 21918603993 No Longer Active Abdirahman Rios MD Active CIPRO 500 MG TAB 1 tablet by mouth twice daily CIPROFLOXACIN HCL 92455444465 No Longer Active Abdirahman Rios MD Active BENADRYL 25 MG CAP 1 po q8hr PRN Congestion DIPHENHYDRAMINE HCL 42919772861 No Longer Active Abdirahman Rios MD Active ZOLOFT 50 MG TAB 1 po qd SERTRALINE HCL 277920 62354 No Longer Active Abdirahman Rios MD Active AMOXICILLIN 875 MG TABS 1 tab by mouth twice daily 201 08/09/13 AMOXICILLIN 19194515986 No Longer Active Abdirahman Rios MD Activ e AMOXICILLIN 875 MG TABS 1 tab by mouth twice daily 201 07/19/27 AMOXICILLIN 23089564087 No Longer Active Abdirahman Rios MD Activ e BACTRIM DS 800-160 MG TAB 2 tab by mouth twice daily 2 TRIMETHOPRIM-SULFAMETHOXAZOLE 11236921300 No Longer Active Abdirahman Rios MD Active KEFLEX 500 MG CAP 1 po tid x 10 days CEPHALEXIN 23841565612 No Longer Active Abdirahman Rios MD Active AMOXICILLIN 875 MG TABS 1 tab by mouth twice daily 201 07/18/07 AMOXICILLIN 42054932524 No Longer Active Abdirahman Rios MD Activ e BACTRIM DS 800-160 MG TAB 2 tab by mouth twice daily 2 BACTRIM DS 800-160 MG TAB TRIMETHOPRIM-SULFAMETHOXAZOLE Inactive ZOLOFT 50 MG TAB 1 po qd ZOLOFT 50 MG TAB 3129 41 SERTRALINE HCL Inactive BENADRYL 25 MG CAP 1 po q8hr PRN Congestion BENADRYL 25 MG CAP 8617182 DIPHENHYDRAMINE HCL Inactive 28-0.8 MG TABS Take one by mouth daily 09/20 28-0.8 MG TABS VIT-FE FUMARATE-FA Inactive HYDROCODONE-ACETAMINOPHEN 5-325 MG TABS 1 po q 6hr PRN Pain 2010 HYDROCODONE-ACETAMINOPHEN 5-325 MG TABS 580054 HYDROCODONE-ACETAMINOPHEN Inactive LORATADINE 10 MG TABS 1 tablet by mouth daily LORATADINE 10 MG TABS 508040 LORATADINE Inactive LUIS 3-0.02 MG TABS 1 tablet by mouth daily as directed LUIS 3-0.02 MG TABS DROSPIRENONE-ETHINYL ESTRADIOL Inactive VITAMINS TABS Take one by mouth daily VITAMINS TABS MV & MIN W/FE-FA TABS Inactive PERCOCET 5-325 MG TABS 1 tablet by mouth every 6 hours as ne eded for pain PERCOCET 5-325 MG TABS 3730493 OXYCODONE-ACETAMIN OPHEN Inactive PREDNISONE 20 MG TAB 2 tabs daily for 4 days, 1 t ab daily for 4 days, 1/2 tab daily for 4 days PREDNISONE 20 MG TAB 704185 PREDNISON E Inactive CLINDAMYCIN HCL 300 MG CAPS 1 po q6hr x 7 days CLINDAMYCIN HCL 300 MG CAPS 501729 CLINDAMYCIN HCL Inactive HYDROCODONE-ACETAMINOPHEN 7.5-325 MG TABS 1 po QID PRN Pain 2011 HYDROCODONE-ACETAMINOPHEN 7.5-325 MG TABS 980744 HYDROCODONE-ACETAMINOPHEN Inactive SPIRONOLACTONE 25 MG TAB 1 tablet by mouth daily 01/22 SPIRONOLACTONE 25 MG TAB 490221 SPIRONOLACTONE Inactive IBUPROFEN 600 MG TAB 1 po q6-8hr PRN IBUPROFEN 600 MG TAB 689553 IBUPROFEN Inactive FERROUS SULFATE 325 (65 FE) MG TABS 1 tablet by mouth twice yung y FERROUS SULFATE 325 (65 FE) MG TABS 162912 FERROUS SULF ATE Inactive HYDROCODONE-ACETAMINOPHEN 7.5-500 MG [...] PRN Pain 2011 HYDROCODONE-ACETAMINOPHEN 5-325 MG TABS 798679 HYDROCODONE-ACETAMINOPHEN Inactive DOXYCYCLINE HYCLATE 100 MG CAPS Take one (1) tablet by mouth twice a day DOXYCYCLINE HYCLATE 100 MG CAPS 711808 DOXYCYCLINE HYCLATE Inactive PENICILLIN V POTASSIUM 500 MG TAB 1 four times a day 2 PENICILLIN V POTASSIUM 500 MG TAB 642141 PENICILLIN V POTASSIUM [place] ctive PRISTIQ 50 MG [id number] 1 po qd PRISTIQ 50 MG [id number] DESVENLAFAXINE SUCCINATE Inactive TYLENOL/CODEINE #3 300-30 MG TAB 1-2 po q6hr PRN Pain TYLENOL/CODEINE #3 300-30 MG TAB 532493 ACETAMINOPHEN-CODEINE Inact krishna CEPHALEXIN 500 MG TABS Take one by mouth four times daily, morning, noon, early evening and bedtime. CEPHALEXIN 500 MG TABS 626991 CEPHALEXIN Inactive LORTAB 5 5-500 MG TABS 1/2 to 1 tablet by mouth go ry 6 hours as needed for pain LORTAB 5 5-500 MG TABS HYDROCODONE-A CETAMINOPHEN Inactive AMITRIPTYLINE HCL 25 MG TAB 1 tab by mouth daily 60 minutes before bedtime AMITRIPTYLINE HCL 25 MG TAB 498753 AMITRIPTYLINE HCL Inactive AMOXICILLIN 500 MG TABS 2 tabs PO bid x 10 d 7 AMOXICILLIN 500 MG TABS 087874 AMOXICILLIN Inactive IMPLANON 68 MG IMPL IMPLANTED IN LEFT ARM IMPLANON 68 MG IMPL ETONOGESTREL Inactive HYDROCODONE-ACETAMINOPHEN 5-325 MG TABS 1 PO tid PRN pain 5 HYDROCODONE-ACETAMINOPHEN 5-325 MG TABS 922844 HYDROCODONE-ACETAMIN OPHEN Inactive BACTRIM DS 800-160 MG TAB 1 tab by mouth twice daily 2 BACTRIM DS 800-160 MG TAB TRIMETHOPRIM-SULFAMETHOXAZOLE Inac tive CEPHALEXIN 500 MG CAPS 1 PO bid x 7 days CEPHALEXIN 500 MG CAPS 650423 CEPHALEXIN Inactive HYDROCODONE-ACETAMINOPHEN 5-325 MG TABS 1 tab by mouth every 6 hours as needed HYDROCODONE-ACETAMINOPHEN 5-325 MG TABS 500459 HYDROCODONE-ACETAMINOPHEN Inactive PROMETHAZINE-CODEINE 6.25-10 MG/5ML SYRP 1 tsp every 6 hrs prn c ough PROMETHAZINE-CODEINE 6.25-10 MG/5ML SYRP 512796 PROMETH AZINE-CODEINE Inactive IBUPROFEN 800 MG TAB 1 pill three times daily as needed for pain IBUPROFEN 800 MG TAB 995155 IBUPROFEN Inactive KEFLEX 500 MG CAP 1 tab po tid KEFLEX 500 MG CAP 315153 CEPHALEXIN Inactive HYDROCODONE-ACETAMINOPHEN 7.5-325 MG TABS 1 four times a day as needed for pain HYDROCODONE-ACETAMINOPHEN 7.5-325 MG TABS 121411 HYDROCODONE-ACETAMINOPHEN Inactive BACTRIM DS 800-160 MG TABS by mouth twice a day 11/05 BACTRIM DS 800-160 MG TABS SULFAMETHOXAZOLE-TRIMETHOPRIM Inactive IBUPROFEN 800 MG TABS 1 tid prn IBUPROFEN 800 MG TABS 355272 IBUPROFEN Inactive ENDOCET 10-325 MG TABS 1 q 6 hr prn ENDOC ET 10-325 MG TABS 6568123 OXYCODONE-ACETAMINOPHEN Inactive HYDROCODONE-ACETAMINOPHEN 7.5-325 MG TABS 1 by mouth e very 6 hours as needed for pain HYDROCODONE-ACETAMINOPHEN 7.5-325 MG TABS 357976 HYDROCODONE-ACETAMINOPHEN Inactive PERCOCET 7.5-325 MG TABS 1 PO q 8 hrs PRN pain PERCOCET 7.5-325 MG TABS 1780404 OXYCODONE-ACETAMINOPHEN Inactive LIDODERM 5 % PTCH One patch to painful area IN N. On for 12 hrs, off for 12 hrs. LIDODERM 5 % PTCH 6101958 LIDOCAINE Inactiv e PERCOCET 7.5-325 MG TABS 1 PO tid PRN pain PERCOCET 7.5- 325 MG TABS 1803660 OXYCODONE-ACETAMINOPHEN Inactive MOBIC 15 MG TABS 1 tab daily MOBIC 15 MG TABS 15 2695 MELOXICAM Inactive CYCLOBENZAPRINE HCL 10 MG TABS 1/2 - 1 tab PO tid PRN back p ain, muscle spasm CYCLOBENZAPRINE HCL 10 MG TABS 746649 CYCLOBENZA JOSEPH HCL Inactive LORATADINE 10 MG TABS 1 tablet by mouth daily LORATADINE 10 MG TABS 173064 LORATADINE Inactive HYDROCODONE-ACETAMINOPHEN 10-325 MG TABS 1 by mouth ev chaka 8 hours as needed for pain HYDROCODONE-ACETAMINOPHEN 10-325 MG TABS 967224 HYDROCODONE-ACETAMINOPHEN Inactive LC-5 LIDOCAINE 5 % CREA apply 1 time daily to affected area 2013 LC-5 LIDOCAINE 5 % CREA LIDOCAINE (ANORECTAL) In active PERCOCET 5-325 MG TAB 1 every 6 hours as needed PERCOCET 5-325 MG TAB 3273676 OXYCODONE-ACETAMINOPHEN Inactive AMOXICILLIN 875 MG TABS 1 tab by mouth twice daily 201 07/18/07 AMOXICILLIN 875 MG TABS 672876 AMOXICILLIN Inactive KEFLEX 500 MG CAP 1 po tid x 10 days KEFLEX 500 MG CAP 233303 CEPHALEXIN Inactive AMOXICILLIN 875 MG TABS 1 tab by mouth twice daily 201 07/19/27 AMOXICILLIN 875 MG TABS 006662 AMOXICILLIN Inactive AMOXICILLIN 875 MG TABS 1 tab by mouth twice daily 201 08/09/13 AMOXICILLIN 875 MG TABS 984975 AMOXICILLIN Inactive CIPRO 500 MG TAB 1 tablet by mouth twice daily CIPRO 500 MG TAB 891693 CIPROFLOXACIN HCL Inactive BACTRIM DS 800-160 MG TAB 1 tab by mouth twice daily 2 BACTRIM DS 800-160 MG TAB TRIMETHOPRIM-SULFAMETHOXAZOLE Inac tive LEVAQUIN 500 MG TABS 1 PO q day x 7 days LEVAQUIN 500 MG TABS 221935 LEVOFLOXACIN Inactive CLINDAMYCIN HCL 300 MG CAPS 1 po QID x 7 days CLINDAMYCIN HCL 300 MG CAPS 533602 CLINDAMYCIN HCL Inactive AUGMENTIN 875-125 MG TAB 1 tab by mouth twice daily with food 20 22/05/07 AUGMENTIN 875-125 MG TAB 028533 AMOXICILLIN-POT CLAVULA [place] Inactive DIFLUCAN 150 MG TAB 1 qODay x 2 doses DIFLUCAN 150 MG TAB 187476 FLUCONAZOLE Inactive Advance Directives Directive Description Start Date PERMISSION TO SHARE Immunizations Vaccine Administration Date Value Standard Alf cription Seasonal influenza vaccine, injectable, containing preservative, for > 3 years old (Afluria, FluLaval, Fluzone, Fluvirin, Fluarix, Agriflu(>= 18 yo)) Fluzone (>3 yrs.) [[id number]] Influenza, seasonal, inject able Seasonal influenza vaccine, injectable, preservative free, for > 3 years old (Afluria, FluLaval, Fluzone, Fluvirin, Fluarix, Agriflu(>= 18 yo)) Fluzone preservative free (>3 yrs.) [[id number]] Influenza, seasonal, injectable, preservative free Seasonal influenza vaccine, injectable, containing preservative, for > 3 years old (Afluria, FluLaval, Fluzone, Fluvirin, Fluarix, Agriflu(>= 18 yo)) Fluzone (>3 yrs.) [[id number]] Influenza, seasonal, inject able Seasonal influenza vaccine, injectable, containing preservative, for > 3 years old (Afluria, FluLaval, Fluzone, Fluvirin, Fluarix, Agriflu(>= 18 yo)) Fluzone (>3 yrs.) [[id number]] Influenza, seasonal, inject able dT (Diphtheria and [...] ... 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 Patient 16:57:09 QUICK MIXER OPERATOR Kalpesh goins MD [facility] CPT-79285 Level 3 Est. Patient 14:03:08 QUICK MIXER OPERATOR Abdirahman Rios MD [facility] CPT-12405 Level 3 Est. Patient 18:12:34 CDT Shola Wright [facility] CPT-27146 Level 3 Est. Patient 19:34:46 CDT Shola Wright [facility] CPT-38182 Level 3 Est. Patient 14:19:37 CDT Abdirahman Rios MD [facility] CPT-97210 Level 3 Est. Patient 14:11:58 CDT Kalpesh goins MD [facility] CPT-81523 Level 3 Est. Patient 16:50:00 CDT Michelle MERCADO [facility] CPT-85787 Level 3 Est. Patient 17:11:32 QUICK MIXER OPERATOR Brandie bates MD PhD [facility] CPT-30852 Level 3 Est. Patient 16:31:47 QUICK MIXER OPERATOR Shola Houghsabi [facility] CPT-49571 Level 3 Est. Patient 17:51:10 QUICK MIXER OPERATOR Abhinav Galvan MD [facility]-01459 Level 4 Est. Patient 12:54:56 QUICK MIXER OPERATOR Kalpesh goins MD [facility]-38197 Level 4 Est. Patient 12:53:56 QUICK MIXER OPERATOR Kalpesh goins MD [facility] CPT-18287 Level 3 Est. Patient 17:56:58 CDT Shola Thao Francesabi [facility] CPT-05672 Level 3 Est. Patient 14:26:20 CDT Janak Dominguez [facility] CPT-44523 Level 3 Est. Patient 09:38:41 CDT Shola Houghsabi [facility] CPT-21257 Level 3 Est. Patient 14:45:26 CDT Edilberto tiwari [facility] CPT-94723 Level 3 Est. Patient 10:51:33 CDT Hira muniz [facility] CPT-66267 Level 3 Est. Patient 11:57:55 QUICK MIXER OPERATOR Shola Wright [facility] CPT-22770 Level 3 Est. Patient 09:53:33 QUICK MIXER OPERATOR Edilberto tiwari [facility] CPT-30017 Level 3 Est. Patient 14:42:54 QUICK MIXER OPERATOR Abhinav Galvan MD [facility]-94546 Level 3 Est. Patient 15:10:02 CDT Janak butcher [facility] CPT-02393 Level 3 Est. Patient 15:20:20 CDT Theo dennis MD [facility]-62697 Level 2 Est. Patient 14:08:57 CDT Kalpesh goins MD [facility] CPT-41802 Level 3 Est. Patient 13:56:19 CDT Abdirahman Rios MD [facility] CPT-97556 Level 3 Est. Patient 13:59:37 CDT Abdirahman Rios MD [facility] CPT-32673 Level 2 Est. Patient 14:44:59 CDT Kalpesh goins MD [facility] CPT-23398 Level 3 Est. Patient 06:06:23 CDT Edilberto tiwari DO [facility] CPT-68819 Level 3 Est. Patient 15:23:54 CDT Abdirahman Rios MD [facility] CPT-88187 Level 3 Est. Patient 15:43:49 CDT Abdirahman Rios MD [facility] CPT-34402 Level 3 Est. Patient 12:46:47 QUICK MIXER OPERATOR Abdirahman Rios MD [facility] CPT-97742 Level 3 Est. Patient 08:13:35 QUICK MIXER OPERATOR Abdirahman Rios MD [facility] CPT-44943 Level 2 Est. Patient 09:36:42 QUICK MIXER OPERATOR Abdirahman Rios MD [facility] CPT-97801 Level 3 Est. Patient 10:56:43 CDT Abdirahman Rios MD [facility] CPT-40054 Level 3 Est. Patient 18:24:52 CDT Abdirahman Rios MD [facility] CPT-79893 Level 3 Est. Patient 13:27:22 CDT Abdirahman Rios MD [facility] Procedures Code Procedure Name Date Entry Date Standard Desc ription CPT-06748 Postop F/U Visit 08:19:08 QUICK MIXER OPERATOR CPT-61564 Immunization Single Admin 16:41:53 CDT 2013 CPT-01275 Fluzone Quadrivalent Intramuscular Suspe nsion 0.5 ML 16:41:53 CDT CPT-OV Office Visit 16:39:18 CDT CPT-OV Office Visit 16:16:36 CDT CPT-OV Office Visit 15:34:48 CDT CPT-42620 Postop F/U Visit 14:50:12 CDT CPT-08744 Postop F/U Visit 14:41:10 CDT CPT-80280 Venipuncture Draw Fee 11:38:04 QUICK MIXER OPERATOR CPT-98744 Postop F/U Visit 19:02:59 QUICK MIXER OPERATOR CPT-09748 Postop F/U Visit 12:04:54 QUICK MIXER OPERATOR CPT-11698 Administration single or combination vac cine inc oral 15:56:43 CDT CPT-53879 Influenza split virus > age 3 15:56:43 CDT CPT-65976 Hand comp min 3V 14:25:19 CDT CPT-41070 Postop F/U Visit 21:40:51 CDT CPT-21735 Postop F/U Visit 10:58:43 CDT CPT-46590 Administration single or combination vac cine inc oral 12:33:54 QUICK MIXER OPERATOR CPT-77506 Influenza Preservative Free split virus >age 3 12:33:54 QUICK MIXER OPERATOR CPT-31711 Administration single or combination vac cine inc oral 09:30:51 CDT CPT-16896 Influenza split virus > age 3 09:30:51 CDT CPT-56589 Postop F/U Visit 15:14:53 CDT CPT-83114 Postop F/U Visit 13:50:14 CDT CPT-64642 Postop F/U Visit 13:34:52 CDT CPT-OV Office Visit 16:55:03 CDT CPT-42639 [place] of cervix w bx ECC 13:32:50 CDT 10/19 CPT-J1885 Toradol 60 mg (Ketorolac) 15:31:59 CDT 2011 CPT-J1885 Toradol 60 mg (Ketorolac) 15:23:54 CDT 2011 CPT-64799 Visit 11:34:37 QUICK MIXER OPERATOR CPT-38728 Visit 10:52:39 QUICK MIXER OPERATOR CPT-94741 Visit 10:12:02 QUICK MIXER OPERATOR CPT-47954 Visit 11:22:43 QUICK MIXER OPERATOR CPT-50951 Visit 11:24:12 QUICK MIXER OPERATOR CPT-00326 Visit 10:47:05 QUICK MIXER OPERATOR CPT-OV Office Visit 10:26:16 QUICK MIXER OPERATOR CPT-OV Office Visit 15:34:31 QUICK MIXER OPERATOR CPT-50505 Visit 10:42:08 QUICK MIXER OPERATOR CPT-20705 Visit 10:52:45 QUICK MIXER OPERATOR CPT-000 Give Appropriate Flu Vaccine 16:56:41 CDT 2 CPT-17070 Administration single or combination vac cine inc oral 10:33:21 CDT CPT-53074 Influenza split virus > age 3 10:33:21 CDT CPT-50158 Visit 13:23:09 CDT CPT-97453 Visit 18:24:52 CDT CPT-76335 Sono OB comp > 14 weeks 12:07:49 CDT 04/07
--- OUTSIDE RECORDS SUMMARY | 2020-01-18 17:31 | XMS REPORT | Clinical Summary ---
Author Author Admin, Jeri Rashid Organization 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 Moni Juilan MD NEUROPATHY ICD-355.9 Inactive Good sierra MD [...] by mouth twice a day 11/05 SULFAMETHOXAZOLE-TRIMETHOPRIM [id number] No Longer Active Good Julian MD Active IBUPROFEN 800 MG TABS 1 tid prn IBUPROFEN 07658422689 Active Good Julian MD Active ENDOCET 10-325 MG TABS 1 q 6 hr prn OXYCODONE-A CETAMINOPHEN 51415693678 Active Good Julian MD Active HYDROCODONE-ACETAMINOPHEN 7.5-325 MG TABS 1 four times a day as needed for pain HYDROCODONE-ACETAMINOPHEN 28775421041 No Longer Activ crystal Julian MD Active KEFLEX 500 MG CAP 1 tab po tid CEPHALEXIN 953665 86397 No Longer Active Hira Moser APRN Active IBUPROFEN 800 MG TAB 1 pill three times daily as needed for pain IBUPROFEN 81214819353 No Longer Active Kalpesh Dong MD Active PROMETHAZINE-CODEINE 6.25-10 MG/5ML SYRP 1 tsp every 6 hrs prn c ough PROMETHAZINE-CODEINE 31210278275 No Longer Active Kalpesh Carr Active ALPRAZOLAM 0.5 MG TABS 1 PO bid PRN ALPRAZOLAM 743414 72842 Active Shola MCGILL Active HYDROCODONE-ACETAMINOPHEN 5-325 MG TABS 1 tab by mouth every 6 hours as needed HYDROCODONE-ACETAMINOPHEN 53054828799 No Longer Activ e Shola MCGILL Active CEPHALEXIN 500 MG CAPS 1 PO bid x 7 days CEPHAL EXIN 45312638671 No Longer Active Shola MCGILL Active BACTRIM DS 800-160 MG TAB 1 tab by mouth twice daily 2 TRIMETHOPRIM-SULFAMETHOXAZOLE 34518410745 No Longer Active Kalpesh Dong MD Active HYDROCODONE-ACETAMINOPHEN 5-325 MG TABS 1 PO tid PRN pain 5 HYDROCODONE-ACETAMINOPHEN 47295813046 No Longer Active Abhinav Galvan MD Active IMPLANON 68 MG IMPL IMPLANTED IN LEFT ARM ETONO GESTREL 50554631121 No Longer Active 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 PILATES COORDINATOR Active AMOXICILLIN 500 MG TABS 2 tabs PO bid x 10 d AM OXICILLIN 27553168560 No Longer Active Kalpesh Dong MD Active LEVAQUIN 500 MG TABS 1 PO q day x 7 days LEVOFL OXACIN 59077674258 No Longer Active Shola MCGILL Active PROAIR HFA 108 (90 BASE) MCG/ACT AERS 2 puff q 4-6 hrs PRN ALBUTEROL SULFATE 39279042163 Active Shola MCGILL Acti ve FIORICET 50-325-40 MG TABS 2 PO q 8 hrs PRN FOSTER [id number] 85068621905 Active Abdirahman Rios MD Active AMITRIPTYLINE HCL 25 MG TAB 1 tab by mouth daily 60 minutes before bedtime AMITRIPTYLINE HCL 82505519398 No Longer Active Shola MCGILL Active LORTAB 5 5-500 MG TABS 1/2 to 1 tablet by mouth go ry 6 hours as needed for pain HYDROCODONE-ACETAMINOPHEN 53962395984 No Longer Active Shola MCGILL Active CEPHALEXIN 500 MG TABS Take one by mouth four times daily, morning, noon, early evening and bedtime. CEPHALEXIN 89284538547 No Long er Active Hira Perazaabel PILATES COORDINATOR Active TYLENOL/CODEINE #3 300-30 MG TAB 1-2 po q6hr PRN Pain ACETAMINOPHEN-CODEINE 12885506976 No Longer Active Edilberto Marino DO Active PRISTIQ 50 MG PI68I-XAN 1 po qd DESVENLAFAXI NE SUCCINATE 67181550215 No Longer Active Edilberto Marino DO Active PENICILLIN V POTASSIUM 500 MG TAB 1 four times a day 2 PENICILLIN V POTASSIUM 34143100053 No Longer Active Edilberto Marino DO Active DOXYCYCLINE HYCLATE 100 MG CAPS Take one (1) tablet by mouth twice a day DOXYCYCLINE HYCLATE 78462847159 No Longer Active Ronnie Galvan MD Active HYDROCODONE-ACETAMINOPHEN 5-325 MG TABS 1 po q 6hr PRN Pain 2011 HYDROCODONE-ACETAMINOPHEN 35658840476 No Longer Active Patri joan Perez RN Active BACTRIM DS 800-160 MG TAB 1 tab by mouth twice daily 2 TRIMETHOPRIM-SULFAMETHOXAZOLE 86143161992 No Longer Active Kalpesh Dong MD Active LORTAB 5 5-500 MG TABS 1/2 to 1 tablet by mouth go ry 4 hours as needed for pain HYDROCODONE-ACETAMINOPHEN 74553019443 No Longer Active Kalpesh Dong MD Active GENERESS FE 0.8-25 MG-MCG CHEW Take one by mouth daily NORETHIN-ETH ESTRADIOL-FE 90816412978 No Longer Active Kalpesh Dong MD Active HYDROCODONE-ACETAMINOPHEN 7.5-500 MG TABS 1-2 every 4 hours as needed HYDROCODONE-ACETAMINOPHEN 13887540956 No Longer Activ e Kalpesh Dong MD Active FERROUS SULFATE 325 (65 FE) MG TABS 1 tablet by mouth twice yung y FERROUS SULFATE 19940003041 No Longer Active Kalpesh Dong MD Active IBUPROFEN 600 MG TAB 1 po q6-8hr PRN IBUPROFEN 69394208358 No Longer Active Kalpesh Dong MD Active SPIRONOLACTONE 25 MG TAB 1 tablet by mouth daily 01/22 SPIRONOLACTONE 19432431103 No Longer Active Kalpesh Dong MD Acti ve HYDROCODONE-ACETAMINOPHEN 7.5-325 MG TABS 1 po QID PRN Pain 2011 HYDROCODONE-ACETAMINOPHEN 63794400255 No Longer Active Kalpesh Dong MD Active CLINDAMYCIN HCL 300 MG CAPS 1 po q6hr x 7 days CLINDAMYCIN HCL 01547496335 No Longer Active Edilberto Marino DO Active PREDNISONE 20 MG TAB 2 tabs daily for 4 days, 1 t ab daily for 4 days, 1/2 tab daily for 4 days PREDNISONE 38947039348 No Longer Active Edilberto Marino DO Active PERCOCET 5-325 MG TABS 1 tablet by mouth every 6 hours as ne eded for pain OXYCODONE-ACETAMINOPHEN 59264325522 No Longer Active Abdirahman Rios MD Active VITAMINS TABS Take one by mouth daily MV & MIN W/FE-FA TABS 09967769800 No Longer Active Abdirahman Rios MD Active LUIS 3-0.02 MG TABS 1 tablet by mouth daily as directed DROSPIRENONE-ETHINYL ESTRADIOL 89567763058 No Longer Active Abdirahman Rios MD Active LORATADINE 10 MG TABS 1 tablet by mouth daily L ORATADINE 02621012939 No Longer Active Kalpesh Dong MD Active HYDROCODONE-ACETAMINOPHEN 5-325 MG TABS 1 po q 6hr PRN Pain 2010 HYDROCODONE-ACETAMINOPHEN 21860214854 No Longer Active Edilberto Marino DO Active BACTRIM DS 800-160 MG TAB 1 tab by mouth twice daily 2 TRIMETHOPRIM-SULFAMETHOXAZOLE 87108336097 No Longer Active Abdirahman Rios MD Active 28-0.8 MG TABS Take one by mouth daily 09/20 VIT-FE FUMARATE-FA 15982711491 No Longer Active Abdirahman Rios MD Active CIPRO 500 MG TAB 1 tablet by mouth twice daily CIPROFLOXACIN HCL 60906685388 No Longer Active Abdirahman Rios MD Active BENADRYL 25 MG CAP 1 po q8hr PRN Congestion DIPHENHYDRAMINE HCL 61671999030 No Longer Active Abdirahman Rios MD Active ZOLOFT 50 MG TAB 1 po qd SERTRALINE HCL 037596 52573 No Longer Active Abdirahman Rios MD Active AMOXICILLIN 875 MG TABS 1 tab by mouth twice daily 201 08/09/13 AMOXICILLIN 79107962914 No Longer Active Abdirahman Rios MD Activ e AMOXICILLIN 875 MG TABS 1 tab by mouth twice daily 201 07/19/27 AMOXICILLIN 10931857880 No Longer Active Abdirahman Rios MD Activ e BACTRIM DS 800-160 MG TAB 2 tab by mouth twice daily 2 TRIMETHOPRIM-SULFAMETHOXAZOLE 23263709529 No Longer Active Abdirahman Rios MD Active KEFLEX 500 MG CAP 1 po tid x 10 days CEPHALEXIN 79782555797 No Longer Active Abdirahman Rios MD Active AMOXICILLIN 875 MG TABS 1 tab by mouth twice daily 201 07/18/07 AMOXICILLIN 76947040018 No Longer Active Abdirahman Rios MD Activ e BACTRIM DS 800-160 MG TAB 2 tab by mouth twice daily 2 BACTRIM DS 800-160 MG TAB TRIMETHOPRIM-SULFAMETHOXAZOLE Inactive ZOLOFT 50 MG TAB 1 po qd ZOLOFT 50 MG TAB 3129 41 SERTRALINE HCL Inactive BENADRYL 25 MG CAP 1 po q8hr PRN Congestion BENADRYL 25 MG CAP 2744899 DIPHENHYDRAMINE HCL Inactive 28-0.8 MG TABS Take one by mouth daily 09/20 28-0.8 MG TABS VIT-FE FUMARATE-FA Inactive HYDROCODONE-ACETAMINOPHEN 5-325 MG TABS 1 po q 6hr PRN Pain 2010 HYDROCODONE-ACETAMINOPHEN 5-325 MG TABS 722605 HYDROCODONE-ACETAMINOPHEN Inactive LORATADINE 10 MG TABS 1 tablet by mouth daily LORATADINE 10 MG TABS 746389 LORATADINE Inactive LUIS 3-0.02 MG TABS 1 tablet by mouth daily as directed LUIS 3-0.02 MG TABS DROSPIRENONE-ETHINYL ESTRADIOL Inactive VITAMINS TABS Take one by mouth daily VITAMINS TABS MV & MIN W/FE-FA TABS Inactive PERCOCET 5-325 MG TABS 1 tablet by mouth every 6 hours as ne eded for pain PERCOCET 5-325 MG TABS 7962625 OXYCODONE-ACETAMIN OPHEN Inactive PREDNISONE 20 MG TAB 2 tabs daily for 4 days, 1 t ab daily for 4 days, 1/2 tab daily for 4 days PREDNISONE 20 MG TAB 534940 PREDNISON E Inactive CLINDAMYCIN HCL 300 MG CAPS 1 po q6hr x 7 days CLINDAMYCIN HCL 300 MG CAPS 951757 CLINDAMYCIN HCL Inactive HYDROCODONE-ACETAMINOPHEN 7.5-325 MG TABS 1 po QID PRN Pain 2011 HYDROCODONE-ACETAMINOPHEN 7.5-325 MG TABS 589320 HYDROCODONE-ACETAMINOPHEN Inactive SPIRONOLACTONE 25 MG TAB 1 tablet by mouth daily 01/22 SPIRONOLACTONE 25 MG TAB 340933 SPIRONOLACTONE Inactive IBUPROFEN 600 MG TAB 1 po q6-8hr PRN IBUPROFEN 600 MG TAB 270485 IBUPROFEN Inactive FERROUS SULFATE 325 (65 FE) MG TABS 1 tablet by mouth twice yung y FERROUS SULFATE 325 (65 FE) MG TABS 582439 FERROUS SULF ATE Inactive HYDROCODONE-ACETAMINOPHEN 7.5-500 MG TABS 1-2 every 4 hours as needed HYDROCODONE-ACETAMINOPHEN 7.5-500 MG TABS 748482 HYDROCODONE-ACETAMINOPHEN Inactive GENERESS FE 0.8-25 MG-MCG CHEW [...] PRN Pain 2011 HYDROCODONE-ACETAMINOPHEN 5-325 MG TABS 386955 HYDROCODONE-ACETAMINOPHEN Inactive DOXYCYCLINE HYCLATE 100 MG CAPS Take one (1) tablet by mouth twice a day DOXYCYCLINE HYCLATE 100 MG CAPS 648255 DOXYCYCLINE HYCLATE Inactive PENICILLIN V POTASSIUM 500 MG TAB 1 four times a day 2 PENICILLIN V POTASSIUM 500 MG TAB 539159 PENICILLIN V POTASSIUM Drift ctive PRISTIQ 50 MG [id number] 1 po qd PRISTIQ 50 MG [id number] DESVENLAFAXINE SUCCINATE Inactive TYLENOL/CODEINE #3 300-30 MG TAB 1-2 po q6hr PRN Pain TYLENOL/CODEINE #3 300-30 MG TAB 694684 ACETAMINOPHEN-CODEINE Inact krishna CEPHALEXIN 500 MG TABS Take one by mouth four times daily, morning, noon, early evening and bedtime. CEPHALEXIN 500 MG TABS 128996 CEPHALEXIN Inactive LORTAB 5 5-500 MG TABS 1/2 to 1 tablet by mouth go ry 6 hours as needed for pain LORTAB 5 5-500 MG TABS HYDROCODONE-A CETAMINOPHEN Inactive AMITRIPTYLINE HCL 25 MG TAB 1 tab by mouth daily 60 minutes before bedtime AMITRIPTYLINE HCL 25 MG TAB 830214 AMITRIPTYLINE HCL Inactive AMOXICILLIN 500 MG TABS 2 tabs PO bid x 10 d 7 AMOXICILLIN 500 MG TABS 143621 AMOXICILLIN Inactive IMPLANON 68 MG IMPL IMPLANTED IN LEFT ARM IMPLANON 68 MG IMPL ETONOGESTREL Inactive HYDROCODONE-ACETAMINOPHEN 5-325 MG TABS 1 PO tid PRN pain 5 HYDROCODONE-ACETAMINOPHEN 5-325 MG TABS 398102 HYDROCODONE-ACETAMIN OPHEN Inactive BACTRIM DS 800-160 MG TAB 1 tab by mouth twice daily 2 BACTRIM DS 800-160 MG TAB TRIMETHOPRIM-SULFAMETHOXAZOLE Inac tive CEPHALEXIN 500 MG CAPS 1 PO bid x 7 days CEPHALEXIN 500 MG CAPS 445650 CEPHALEXIN Inactive HYDROCODONE-ACETAMINOPHEN 5-325 MG TABS 1 tab by mouth every 6 hours as needed HYDROCODONE-ACETAMINOPHEN 5-325 MG TABS 759996 HYDROCODONE-ACETAMINOPHEN Inactive PROMETHAZINE-CODEINE 6.25-10 MG/5ML SYRP 1 tsp every 6 hrs prn c ough PROMETHAZINE-CODEINE 6.25-10 MG/5ML SYRP 016321 PROMETH AZINE-CODEINE Inactive IBUPROFEN 800 MG TAB 1 pill three times daily as needed for pain IBUPROFEN 800 MG TAB 258513 IBUPROFEN Inactive KEFLEX 500 MG CAP 1 tab po tid KEFLEX 500 MG CAP 098729 CEPHALEXIN Inactive HYDROCODONE-ACETAMINOPHEN 7.5-325 MG TABS 1 four times a day as needed for pain HYDROCODONE-ACETAMINOPHEN 7.5-325 MG TABS 330171 HYDROCODONE-ACETAMINOPHEN Inactive BACTRIM DS 800-160 MG TABS by mouth twice a day 11/05 BACTRIM DS 800-160 MG TABS SULFAMETHOXAZOLE-TRIMETHOPRIM Inactive AMOXICILLIN 875 MG TABS 1 tab by mouth twice daily 201 07/18/07 AMOXICILLIN 875 MG TABS 526943 AMOXICILLIN Inactive KEFLEX 500 MG CAP 1 po tid x 10 days KEFLEX 500 MG CAP 433117 CEPHALEXIN Inactive AMOXICILLIN 875 MG TABS 1 tab by mouth twice daily 201 07/19/27 AMOXICILLIN 875 MG TABS 697596 AMOXICILLIN Inactive AMOXICILLIN 875 MG TABS 1 tab by mouth twice daily 08/09/13 AMOXICILLIN 875 MG TABS 017001 AMOXICILLIN Inactive CIPRO 500 MG TAB 1 tablet by mouth twice daily CIPRO 500 MG TAB 459425 CIPROFLOXACIN HCL Inactive BACTRIM DS 800-160 MG TAB 1 tab by mouth twice daily 2 BACTRIM DS 800-160 MG TAB TRIMETHOPRIM-SULFAMETHOXAZOLE Inac tive LEVAQUIN 500 MG TABS 1 PO q day x 7 days LEVAQUIN 500 MG TABS 220715 LEVOFLOXACIN Inactive Advance Directives Directive Description Start Date PERMISSION TO SHARE Immunizations Vaccine Administration Date Value Standard Alf cription Seasonal influenza vaccine, injectable, containing preservative, for > 3 years old (Afluria, FluLaval, Fluzone, Fluvirin, Fluarix, Agriflu(>= 18 yo)) Fluzone (>3 yrs.) [[id number]] Influenza, seasonal, inject able Seasonal influenza vaccine, injectable, preservative free, for > 3 years old (Afluria, FluLaval, Fluzone, Fluvirin, Fluarix, Agriflu(>= 18 yo)) Fluzone preservative free (>3 yrs.) [[id number]] Influenza, seasonal, injectable, preservative free Seasonal influenza vaccine, injectable, containing preservative, for > 3 years old (Afluria, FluLaval, Fluzone, Fluvirin, Fluarix, Agriflu(>= 18 yo)) Fluzone (>3 yrs.) [[id number]] Influenza, seasonal, inject able Seasonal influenza vaccine, injectable, containing preservative, for > 3 years old (Afluria, FluLaval, Fluzone, Fluvirin, Fluarix, Agriflu(>= 18 yo)) Fluzone (>3 yrs.) [EGV003] Influenza, seasonal, inject able dT (Diphtheria and [...] blood pressure, diastolic, supine 75 mm[Hg] BP ribeior blood pressure, systolic, supine E&M 133 mm[Hg] [...] ... 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 Patient 14:11:58 CDT Kalpesh goins MD [facility] CPT-05121 Level 3 Est. Patient 16:50:00 CDT Michelle MERCADO [facility] CPT-50427 Level 3 Est. Patient 17:11:32 [employer] Brandie bates MD PhD [facility] CPT-15526 Level 3 Est. Patient 16:31:47 [employer] Shola MCGILL [facility] CPT-98910 Level 3 Est. Patient 17:51:10 [employer] Abhinav Galvan MD [facility] CPT-36647 Level 4 Est. Patient 12:54:56 [employer]BER Kalpesh goins MD [facility] CPT-18790 Level 4 Est. Patient 12:53:56 [employer] CRE[employer]BER Kalpesh goins MD [facility] CPT-56541 Level 3 Est. Patient 17:56:58 CDT Shola Wright [facility] CPT-96476 Level 3 Est. Patient 14:26:20 CDT Janak butcher [facility] CPT-48436 Level 3 Est. Patient 09:38:41 CDT Shola Keesha Wright [facility] CPT-07615 Level 3 Est. Patient 14:45:26 CDT Edilberto itwari [facility]-16168 Level 3 Est. [facility] 10:51:33 [facility] Est. Patient 11:57:55 [employer] CREWMEMBER Shola Thao Adriana [facility] CPT-00184 Level 3 Est. Patient 09:53:33 [employer]ULCAN CREWMEMBER Edilberto tiwari [facility] CPT-58888 Level 3 Est. Patient 14:42:54 [employer] CREWMEMBER Abhinav Galvan MD [facility] CPT-69396 Level 3 Est. Patient 15:10:02 CDT Janak butcher [facility] CPT-63594 Level 3 Est. Patient 15:20:20 CDT Theo dennis MD [facility] CPT-83906 Level 2 Est. Patient 14:08:57 CDT Kalpesh goins MD [facility]-61452 Level 3 Est. Patient 13:56:19 CDT Abdirahman Rios MD [facility] CPT-21603 Level 3 Est. Patient 13:59:37 CDT Abdirahman Rios MD [facility] CPT-25246 Level 2 Est. Patient 14:44:59 CDT Kalpesh goins MD [facility] CPT-33025 Level 3 Est. Patient 06:06:23 CDT Edilberto tiwari DO [facility] CPT-47827 Level 3 Est. Patient 15:23:54 CDT Abdirahman Rios MD [facility] CPT-25280 Level 3 Est. Patient 15:43:49 CDT Abdirahman Rios MD [facility] CPT-01308 Level 3 Est. Patient 12:46:47 [employer] CREWMEMBER Abdirahman Rios MD [facility] CPT-88212 Level 3 Est. Patient 08:13:35 [employer] CREWMEMBER Abdirahman Rios MD [facility] CPT-99843 Level 2 Est. Patient 09:36:42 [employer] CREWMEMBER Abdirahman Rios MD [facility] CPT-08305 Level 3 Est. Patient 10:56:43 CDT Abdirahman Rios MD [facility] CPT-19171 Level 3 Est. Patient 18:24:52 CDT Abdirahman Rios MD [facility] CPT-00421 Level 3 Est. Patient 13:27:22 CDT Abdirahman Rios MD [facility] Procedures Code Procedure Name Date Entry Date Standard Desc ription CPT-OV Office Visit 15:34:48 CDT CPT-85547 Postop F/U Visit 14:50:12 CDT CPT-19484 Postop F/U Visit 14:41:10 CDT CPT-87017 Venipuncture Draw Fee 11:38:04 [employer] CPT-40347 Postop F/U Visit 19:02:59 [employer] CREW[employer]BER CPT-74793 Postop F/U Visit 12:04:54 [employer]WMEMBER CPT-37957 Administration single or combination vac cine inc oral 15:56:43 CDT CPT-23356 Influenza split virus > age 3 15:56:43 CDT CPT-29683 Hand comp min 3V 14:25:19 CDT CPT-40611 Postop F/U Visit 21:40:51 CDT CPT-98796 Postop F/U Visit 10:58:43 CDT CPT-40917 Administration single or combination vac cine inc oral 12:33:54 [employer]MEMBER CPT-45638 Influenza Preservative Free split virus >age 3 12:33:54 [employer] CREWMEMBER CPT-65080 Administration single or combination vac cine inc oral 09:30:51 CDT CPT-16763 Influenza split virus > age 3 09:30:51 CDT CPT-85449 Postop F/U Visit 15:14:53 CDT CPT-31881 Postop F/U Visit 13:50:14 CDT CPT-36818 Postop F/U Visit 13:34:52 CDT CPT-OV Office Visit 16:55:03 CDT CPT-81900 Bentley of cervix w bx ECC 13:32:50 CDT 10/19 CPT-J1885 Toradol 60 mg (Ketorolac) 15:31:59 CDT 2011 CPT-J1885 Toradol 60 mg (Ketorolac) 15:23:54 CDT 2011 CPT-19270 Visit 11:34:37 [employer]BER CPT-11620 Visit 10:52:39 [employer] CREWMEMBER CPT-50546 Visit 10:12:02 [employer] CREWMEMBER CPT-71140 Visit 11:22:43 [employer]WMEMBER CPT-27650 Visit 11:24:12 [employer] CREWMEMBER CPT-57408 Visit 10:47:05 V[employer]CAN CREWMEMBER CPT-OV Office Visit 10:26:16 VULCAN CREWMEMBER CPT-OV Office Visit 15:34:31 V[employer]CAN CREWMEMBER CPT-56795 Visit 10:42:08 V[employer]CAN CREWMEMBER CPT-69211 Visit 10:52:45 VUL[employer] CREWMEMBER CPT-000 Give Appropriate Flu Vaccine 16:56:41 CDT 2 CPT-78990 Administration single or combination vac cine inc oral 10:33:21 CDT CPT-15068 Influenza split virus > age 3 10:33:21 CDT CPT-95165 Visit 13:23:09 CDT CPT-13574 Visit 18:24:52 CDT CPT-55352 Sono OB comp > 14 weeks 12:07:49 CDT 04/07
--- OUTSIDE RECORDS SUMMARY | 2020-01-18 17:31 | XMS REPORT ---
Author [facility], TOMY Rashid Organization [facility] Address [address] [place], [place] [address] Phone [phone] Care Team Providers Care Bobbin Collector Name Role Phone CAROLEE WHITE MD PP [phone] CAROLEE WHITE MD PP [phone] Summary purpose TRANSITION OF CARE AUTO GENERATION [...] no :35 IV Site Location Rt ac 07-83-281748:15 IV Type peripheral 82-32-690908:15 IV Site Information discontinued 87-91-393377:15 IV Site Start Attmpt 2 times 81-46-906992:20 IV Site Isael 20 55-26-976148:15 IV Site Appearance WNL :15 IV Site Color clear :15 IV Site Patent yes :15 Dressing Type occlusive :15 Nursing Note pt ambulatory to private veh icle. pt in stable condition. belongings and discharge paperwork in hand. no questions voiced. friend to drive pt home. 76-29-791717:25 Cognitive Status Finding Observation Time Learning Ability comprehends well 73-12-415038:20 Neurological no 97-49-311929:20 Psychological no 90-84-748210:20 Physical no 17-59-395808:20 Hearing no 86-94-360276:20 Primary Care Nurse Practitioner Needed no :20 Sign Language no :20 Emotional no 03-21-646196:20 Vision yes 91-71-841513:20 [place] no 88-03-159191:20 Financial no 41-95-479572:20 Vital signs Type Value Date Respiration Rate 16breaths per minute 98-17-817071: 05 Pulse 80beats per minute :05 Oxygen Saturation 98% 33-30-094671:05 BP Systolic 156mmHg 01-02-425257:05 BP Diastolic 95mmHg :05 Temperature 98.4F 23-77-130961:35 Height 67inches :49 Weight 230LB 82-14-462380:49 Social history Type Value Smoking Status CURRENT [...] made (specify) Follow Up Appt D/T 10/13/14 1500
--- OUTSIDE RECORDS SUMMARY | 2020-01-18 17:32 | XMS REPORT | Clinical Summary ---
Author Author Admin, Jeri Rashid Organization [facility] Address Unknown Phone Unavailable Allergies, Adverse Reactions, [...] Julian MD Urethritis, unspecified ABSCESS 682.9 Resolved Godo Julian MD Cellulitis and abscess of unspecified [...] sinusitis, unspecified Hidradenitis 705.83 Active Hira Moser FRUIT CHECKER Hidradenitis AFTERCARE FOLLOW SURGERY SKIN&SUBCUT TISSUE NEC V58.77 07/28 Active Kalpesh Dong MD Aftercare following surgery of the skin and subcutaneous tissue, NEC LARGE FOR GESTATIONAL AGE ICD-656.60 Inactive Abdirahman Rios MD BRONCHITIS NOT SPECIFIED ACUTE OR CHRONIC ICD-490 8 Inactive Abdirahman Rios MD MASTALGIA ICD-611.71 Inactive Abdirahman Carr , INCIDENTAL PROBLEM ICD-V22.2 Inacti ve Abdirahman [...] 1 every 6 hours as needed OXYCODONE-ACETAMINOPHEN 78118018934 No Longer Active Shola MCGILL Active LC-5 LIDOCAINE 5 % CREA apply 1 time daily to affected area 2013 LIDOCAINE (ANORECTAL) 44904070943 No Longer Active Hira muniz FRUIT CHECKER Active HYDROCODONE-ACETAMINOPHEN 5-325 MG TABS 2 tablets by m outh every 8 hours as needed for pain HYDROCODONE-ACETAMINOPHEN 51234964798 Acti ve Shola MCGILL Active HYDROCODONE-ACETAMINOPHEN 10-325 MG TABS 1 by mouth ev chaka 8 hours as needed for pain HYDROCODONE-ACETAMINOPHEN 23308834141 No Longer Active Jillina Frazell FRUIT CHECKER Active LORATADINE 10 MG TABS 1 tablet by mouth daily L ORATADINE 65960912148 No Longer Active Jillina Frazell FRUIT CHECKER Active DIFLUCAN 150 MG TAB 1 qODay x 2 doses FLUCONAZO LE 75348706312 No Longer Active Jillina Frazell FRUIT CHECKER Active CYCLOBENZAPRINE HCL 10 MG TABS 1/2 - 1 tab PO tid PRN back p ain, muscle spasm CYCLOBENZAPRINE HCL 09959182759 No Longer Active Karen herson Frazell FRUIT CHECKER Active AUGMENTIN 875-125 MG TAB 1 tab by mouth twice daily with food 20 22/05/07 AMOXICILLIN-POT CLAVULANATE 49766711313 No Longer Active Loida Rios MD Active MOBIC 15 MG TABS 1 tab daily MELOXICAM 636329730 14 No Longer Active Abdirahman Rios MD Active PERCOCET 7.5-325 MG TABS 1 PO tid PRN pain OXYCODONE-ACETAMINOPHEN 23455416189 No Longer Active Abdirahman Rios MD Active LIDODERM 5 % PTCH One patch to painful area [place] N. On for 12 hrs, off for 12 hrs. LIDOCAINE 21539993615 No Longer Active Abdirahman Rios MD Active PERCOCET 7.5-325 MG TABS 1 PO q 8 hrs PRN pain OXYCODONE-ACETAMINOPHEN 94671778328 No Longer Active Shola MCGILL Active HYDROCODONE-ACETAMINOPHEN 7.5-325 MG TABS 1 by mouth e very 6 hours as needed for pain HYDROCODONE-ACETAMINOPHEN 77841543268 No Longer Active Good Julian MD Active CLINDAMYCIN HCL 300 MG CAPS 1 po QID x 7 days CLINDAMYCIN HCL 06507172949 No Longer Active Abdirahman Rios MD Activ e BACTRIM DS 800-160 MG TABS 1 po BID x 7 days 5 SULFAMETHOXAZOLE-TRIMETHOPRIM 52106824996 No Longer Active Abdirahman Rios MD Active ENDOCET 10-325 MG TABS 1 q 6 hr prn OXYCODONE-ACETAMINOPHEN 43031549514 No Longer Active Abdirahman Rios MD Active IBUPROFEN 800 MG TABS 1 tid prn IBUPROFEN 378721 17763 No Longer Active Abdirahman Rios MD Active BACTRIM DS 800-160 MG TABS by mouth twice a day 11/05 SULFAMETHOXAZOLE-TRIMETHOPRIM 19029545430 No Longer Active Good Julian MD Active HYDROCODONE-ACETAMINOPHEN 7.5-325 MG TABS 1 four times a day as needed for pain HYDROCODONE-ACETAMINOPHEN 12882063721 No Longer Activ e Good Julian MD Active KEFLEX 500 MG CAP 1 tab po tid CEPHALEXIN 308386 87407 No Longer Active Jillherson Moser FRUIT CHECKER Active IBUPROFEN 800 MG TAB 1 pill three times daily as needed for pain IBUPROFEN 54538203924 No Longer Active Kalpesh Dong MD Active PROMETHAZINE-CODEINE 6.25-10 MG/5ML SYRP 1 tsp every 6 hrs prn c ough PROMETHAZINE-CODEINE 39069510847 No Longer Active Kalpesh Carr Active ALPRAZOLAM 0.5 MG TABS 1 PO bid PRN ALPRAZOLAM 348927 33660 Active Hira Moser APRN Active HYDROCODONE-ACETAMINOPHEN 5-325 MG TABS 1 tab by mouth every 6 hours as needed HYDROCODONE-ACETAMINOPHEN 28916938221 No Longer Activ e Shola MCGILL Active CEPHALEXIN 500 MG CAPS 1 PO bid x 7 days CEPHAL EXIN 74140529314 No Longer Active Shola MCGILL Active BACTRIM DS 800-160 MG TAB 1 tab by mouth twice daily 2 TRIMETHOPRIM-SULFAMETHOXAZOLE 73980083820 No Longer Active Kalpesh Dong MD Active HYDROCODONE-ACETAMINOPHEN 5-325 MG TABS 1 PO tid PRN pain 5 HYDROCODONE-ACETAMINOPHEN 43775646159 No Longer Active Abhinav Galvan MD Active IMPLANON 68 MG IMPL IMPLANTED IN LEFT ARM ETONO GESTREL 53448429921 No Longer Active Hira Moser APRN Active AMOXICILLIN 500 MG TABS 2 tabs PO bid x 10 d AM OXICILLIN 70190999588 No Longer Active Kalpesh Dong MD Active LEVAQUIN 500 MG TABS 1 PO q day x 7 days LEVOFL OXACIN 95192201532 No Longer Active Shola MCGILL Active PROAIR HFA 108 (90 BASE) MCG/ACT AERS 2 puff q 4-6 hrs PRN ALBUTEROL SULFATE 76635740592 Active Edilberto Marino DO Active FIORICET 50-325-40 MG TABS 2 PO q 8 hrs PRN FOSTER [id number] Active Shola MCGILL Active AMITRIPTYLINE HCL 25 MG TAB 1 tab by mouth daily 60 minutes before bedtime AMITRIPTYLINE HCL 59943129083 No Longer Active Shola MCGILL Active LORTAB 5 5-500 MG TABS 1/2 to 1 tablet by mouth go ry 6 hours as needed for pain HYDROCODONE-ACETAMINOPHEN 18363311419 No Longer Active Shola MCGILL Active CEPHALEXIN 500 MG TABS Take one by mouth four times daily, morning, noon, early evening and bedtime. CEPHALEXIN 96374487032 No Long er Active Hira Joyjanee ANDRADEN Active TYLENOL/CODEINE #3 300-30 MG TAB 1-2 po q6hr PRN Pain ACETAMINOPHEN-CODEINE 32844502971 No Longer Active Edilberto Marino DO Active PRISTIQ 50 MG [id number]-HWM 1 po qd DESVENLAFAXI NE SUCCINATE 84992452622 No Longer Active Edilberto Marino DO Active PENICILLIN V POTASSIUM 500 MG TAB 1 four times a day 2 PENICILLIN V POTASSIUM 42599754945 No Longer Active Edilberto Marino DO Active DOXYCYCLINE HYCLATE 100 MG CAPS Take one (1) tablet by mouth twice a day DOXYCYCLINE HYCLATE 76987328674 No Longer Active Ronnie Galvan MD Active HYDROCODONE-ACETAMINOPHEN 5-325 MG TABS 1 po q 6hr PRN Pain 2011 HYDROCODONE-ACETAMINOPHEN 18159427613 No Longer Active Jerson Perez RN Active BACTRIM DS 800-160 MG TAB 1 tab by mouth twice daily 2 TRIMETHOPRIM-SULFAMETHOXAZOLE 81788429338 No Longer Active Kalpesh Dong MD Active LORTAB 5 5-500 MG TABS 1/2 to 1 tablet by mouth go ry 4 hours as needed for pain HYDROCODONE-ACETAMINOPHEN 02293467189 No Longer Active Kalpesh Dong MD Active GENERESS FE 0.8-25 MG-MCG CHEW Take one by mouth daily NORETHIN-ETH ESTRADIOL-FE 21057407798 No Longer Active Kalpesh Dong MD Active HYDROCODONE-ACETAMINOPHEN 7.5-500 MG TABS 1-2 every 4 hours as needed HYDROCODONE-ACETAMINOPHEN 65250027912 No Longer Activ e Kalpesh Dong MD Active FERROUS SULFATE 325 (65 FE) MG TABS 1 tablet by mouth twice yung y FERROUS SULFATE 91123569571 No Longer Active Kalpesh Dong MD Active IBUPROFEN 600 MG TAB 1 po q6-8hr PRN IBUPROFEN 58436972534 No Longer Active Kalpesh Dong MD Active SPIRONOLACTONE 25 MG TAB 1 tablet by mouth daily 01/22 SPIRONOLACTONE 54221703401 No Longer Active Kalpesh Dong MD Acti ve HYDROCODONE-ACETAMINOPHEN 7.5-325 MG TABS 1 po QID PRN Pain 2011 HYDROCODONE-ACETAMINOPHEN 82165096323 No Longer Active Kalpesh Dong MD Active CLINDAMYCIN HCL 300 MG CAPS 1 po q6hr x 7 days CLINDAMYCIN HCL 42508715896 No Longer Active Edilberto Marino DO Active PREDNISONE 20 MG TAB 2 tabs daily for 4 days, 1 t ab daily for 4 days, 1/2 tab daily for 4 days PREDNISONE 15299930237 No Longer Active Edilberto Marino DO Active PERCOCET 5-325 MG TABS 1 tablet by mouth every 6 hours as ne eded for pain OXYCODONE-ACETAMINOPHEN 96115654429 No Longer Active Abdirahman Rios MD Active VITAMINS TABS Take one by mouth daily MV & MIN W/FE-FA TABS 80300968658 No Longer Active Abdirahman Rios MD Active LUIS 3-0.02 MG TABS 1 tablet by mouth daily as directed DROSPIRENONE-ETHINYL ESTRADIOL 48003259326 No Longer Active Abdirahman Rios MD Active LORATADINE 10 MG TABS 1 tablet by mouth daily L ORATADINE 52583657473 No Longer Active Kalpesh Dong MD Active HYDROCODONE-ACETAMINOPHEN 5-325 MG TABS 1 po q 6hr PRN Pain 2010 HYDROCODONE-ACETAMINOPHEN 89515752677 No Longer Active Edilberto Marino DO Active BACTRIM DS 800-160 MG TAB 1 tab by mouth twice daily 2 TRIMETHOPRIM-SULFAMETHOXAZOLE 55417765382 No Longer Active Abdirahman Rios MD Active 28-0.8 MG TABS Take one by mouth daily 09/20 VIT-FE FUMARATE-FA 60067912800 No Longer Active Abdirahman Rios MD Active CIPRO 500 MG TAB 1 tablet by mouth twice daily CIPROFLOXACIN HCL 74706284236 No Longer Active Abdirahman Rios MD Active BENADRYL 25 MG CAP 1 po q8hr PRN Congestion DIPHENHYDRAMINE HCL 15048821839 No Longer Active Abdirahman Rios MD Active ZOLOFT 50 MG TAB 1 po qd SERTRALINE HCL 512386 33379 No Longer Active Abdirahman Rios MD Active AMOXICILLIN 875 MG TABS 1 tab by mouth twice daily 201 08/09/13 AMOXICILLIN 56698021084 No Longer Active Abdirahman Rios MD Activ e AMOXICILLIN 875 MG TABS 1 tab by mouth twice daily 201 07/19/27 AMOXICILLIN 24204238842 No Longer Active Abdirahman Rios MD Activ e BACTRIM DS 800-160 MG TAB 2 tab by mouth twice daily 2 TRIMETHOPRIM-SULFAMETHOXAZOLE 22280935392 No Longer Active Abdirahman Rios MD Active KEFLEX 500 MG CAP 1 po tid x 10 days CEPHALEXIN 63358729990 No Longer Active Abdirahman Rios MD Active AMOXICILLIN 875 MG TABS 1 tab by mouth twice daily 201 07/18/07 AMOXICILLIN 01874693187 No Longer Active Abdirahman Rios MD Activ e BACTRIM DS 800-160 MG TAB 2 tab by mouth twice daily 2 BACTRIM DS 800-160 MG TAB TRIMETHOPRIM-SULFAMETHOXAZOLE Inactive ZOLOFT 50 MG TAB 1 po qd ZOLOFT 50 MG TAB 3129 41 SERTRALINE HCL Inactive BENADRYL 25 MG CAP 1 po q8hr PRN Congestion BENADRYL 25 MG CAP 1938056 DIPHENHYDRAMINE HCL Inactive 28-0.8 MG TABS Take one by mouth daily 09/20 28-0.8 MG TABS VIT-FE FUMARATE-FA Inactive HYDROCODONE-ACETAMINOPHEN 5-325 MG TABS 1 po q 6hr PRN Pain 2010 HYDROCODONE-ACETAMINOPHEN 5-325 MG TABS 099463 HYDROCODONE-ACETAMINOPHEN Inactive LORATADINE 10 MG TABS 1 tablet by mouth daily LORATADINE 10 MG TABS 724581 LORATADINE Inactive LUIS 3-0.02 MG TABS 1 tablet by mouth daily as directed LUIS 3-0.02 MG TABS DROSPIRENONE-ETHINYL ESTRADIOL Inactive VITAMINS TABS Take one by mouth daily VITAMINS TABS MV & MIN W/FE-FA TABS Inactive PERCOCET 5-325 MG TABS 1 tablet by mouth every 6 hours as ne eded for pain PERCOCET 5-325 MG TABS 2130980 OXYCODONE-ACETAMIN OPHEN Inactive PREDNISONE 20 MG TAB 2 tabs daily for 4 days, 1 t ab daily for 4 days, 1/2 tab daily for 4 days PREDNISONE 20 MG TAB 496217 PREDNISON E Inactive CLINDAMYCIN HCL 300 MG CAPS 1 po q6hr x 7 days CLINDAMYCIN HCL 300 MG CAPS 466422 CLINDAMYCIN HCL Inactive HYDROCODONE-ACETAMINOPHEN 7.5-325 MG TABS 1 po QID PRN Pain 2011 HYDROCODONE-ACETAMINOPHEN 7.5-325 MG TABS 983032 HYDROCODONE-ACETAMINOPHEN Inactive SPIRONOLACTONE 25 MG TAB 1 tablet by mouth daily 01/22 SPIRONOLACTONE 25 MG TAB 433867 SPIRONOLACTONE Inactive IBUPROFEN 600 MG TAB 1 po q6-8hr PRN IBUPROFEN 600 MG TAB 196675 IBUPROFEN Inactive FERROUS SULFATE 325 (65 FE) MG TABS 1 tablet by mouth twice yung y FERROUS SULFATE 325 (65 FE) MG TABS 800591 FERROUS SULF ATE Inactive HYDROCODONE-ACETAMINOPHEN 7.5-500 MG [...] PRN Pain 2011 HYDROCODONE-ACETAMINOPHEN 5-325 MG TABS 668535 HYDROCODONE-ACETAMINOPHEN Inactive DOXYCYCLINE HYCLATE 100 MG CAPS Take one (1) tablet by mouth twice a day DOXYCYCLINE HYCLATE 100 MG CAPS 726278 DOXYCYCLINE HYCLATE Inactive PENICILLIN V POTASSIUM 500 MG TAB 1 four times a day 2 PENICILLIN V POTASSIUM 500 MG TAB 927458 PENICILLIN V POTASSIUM [place] [facility] PRISTIQ 50 MG [id number] 1 po qd PRISTIQ 50 MG [id number]-[id number] DESVENLAFAXINE SUCCINATE Inactive TYLENOL/CODEINE #3 300-30 MG TAB 1-2 po q6hr PRN Pain TYLENOL/CODEINE #3 300-30 MG TAB 598476 ACETAMINOPHEN-CODEINE Inact krishna CEPHALEXIN 500 MG TABS Take one by mouth four times daily, morning, noon, early evening and bedtime. CEPHALEXIN 500 MG TABS 116049 CEPHALEXIN Inactive LORTAB 5 5-500 MG TABS 1/2 to 1 tablet by mouth go ry 6 hours as needed for pain LORTAB 5 5-500 MG TABS HYDROCODONE-A CETAMINOPHEN Inactive AMITRIPTYLINE HCL 25 MG TAB 1 tab by mouth daily 60 minutes before bedtime AMITRIPTYLINE HCL 25 MG TAB 574367 AMITRIPTYLINE HCL Inactive AMOXICILLIN 500 MG TABS 2 tabs PO bid x 10 d 7 AMOXICILLIN 500 MG TABS 629132 AMOXICILLIN Inactive IMPLANON 68 MG IMPL IMPLANTED IN LEFT ARM IMPLANON 68 MG IMPL ETONOGESTREL Inactive HYDROCODONE-ACETAMINOPHEN 5-325 MG TABS 1 PO tid PRN pain 5 HYDROCODONE-ACETAMINOPHEN 5-325 MG TABS 347556 HYDROCODONE-ACETAMIN OPHEN Inactive BACTRIM DS 800-160 MG TAB 1 tab by mouth twice daily 2 BACTRIM DS 800-160 MG TAB TRIMETHOPRIM-SULFAMETHOXAZOLE Inac tive CEPHALEXIN 500 MG CAPS 1 PO bid x 7 days CEPHALEXIN 500 MG CAPS 959100 CEPHALEXIN Inactive HYDROCODONE-ACETAMINOPHEN 5-325 MG TABS 1 tab by mouth every 6 hours as needed HYDROCODONE-ACETAMINOPHEN 5-325 MG TABS 864830 HYDROCODONE-ACETAMINOPHEN Inactive PROMETHAZINE-CODEINE 6.25-10 MG/5ML SYRP 1 tsp every 6 hrs prn c ough PROMETHAZINE-CODEINE 6.25-10 MG/5ML SYRP 414115 PROMETH AZINE-CODEINE Inactive IBUPROFEN 800 MG TAB 1 pill three times daily as needed for pain IBUPROFEN 800 MG TAB 879689 IBUPROFEN Inactive KEFLEX 500 MG CAP 1 tab po tid KEFLEX 500 MG CAP 197064 CEPHALEXIN Inactive HYDROCODONE-ACETAMINOPHEN 7.5-325 MG TABS 1 four times a day as needed for pain HYDROCODONE-ACETAMINOPHEN 7.5-325 MG TABS 573421 HYDROCODONE-ACETAMINOPHEN Inactive BACTRIM DS 800-160 MG TABS by mouth twice a day 11/05 BACTRIM DS 800-160 MG TABS SULFAMETHOXAZOLE-TRIMETHOPRIM Inactive IBUPROFEN 800 MG TABS 1 tid prn IBUPROFEN 800 MG TABS 940486 IBUPROFEN Inactive ENDOCET 10-325 MG TABS 1 q 6 hr prn ENDOC ET 10-325 MG TABS 7692856 OXYCODONE-ACETAMINOPHEN Inactive HYDROCODONE-ACETAMINOPHEN 7.5-325 MG TABS 1 by mouth e very 6 hours as needed for pain HYDROCODONE-ACETAMINOPHEN 7.5-325 MG TABS 652605 HYDROCODONE-ACETAMINOPHEN Inactive PERCOCET 7.5-325 MG TABS 1 PO q 8 hrs PRN pain PERCOCET 7.5-325 MG TABS 6600874 OXYCODONE-ACETAMINOPHEN Inactive LIDODERM 5 % PTCH One patch to painful area CA N. On for 12 hrs, off for 12 hrs. LIDODERM 5 % PTCH 5765861 LIDOCAINE Inactiv e PERCOCET 7.5-325 MG TABS 1 PO tid PRN pain PERCOCET 7.5- 325 MG TABS 1756324 OXYCODONE-ACETAMINOPHEN Inactive MOBIC 15 MG TABS 1 tab daily MOBIC 15 MG TABS 15 2695 MELOXICAM Inactive CYCLOBENZAPRINE HCL 10 MG TABS 1/2 - 1 tab PO tid PRN back p ain, muscle spasm CYCLOBENZAPRINE HCL 10 MG TABS 986921 CYCLOBENZA JOSEPH HCL Inactive LORATADINE 10 MG TABS 1 tablet by mouth daily LORATADINE 10 MG TABS 056073 LORATADINE Inactive HYDROCODONE-ACETAMINOPHEN 10-325 MG TABS 1 by mouth ev chaka 8 hours as needed for pain HYDROCODONE-ACETAMINOPHEN 10-325 MG TABS 883030 HYDROCODONE-ACETAMINOPHEN Inactive LC-5 LIDOCAINE 5 % CREA apply 1 time daily to affected area 2013 LC-5 LIDOCAINE 5 % CREA LIDOCAINE (ANORECTAL) In active PERCOCET 5-325 MG TAB 1 every 6 hours as needed PERCOCET 5-325 MG TAB 9422688 OXYCODONE-ACETAMINOPHEN Inactive AMOXICILLIN 875 MG TABS 1 tab by mouth twice daily 201 07/18/07 AMOXICILLIN 875 MG TABS 193656 AMOXICILLIN Inactive KEFLEX 500 MG CAP 1 po tid x 10 days KEFLEX 500 MG CAP 828006 CEPHALEXIN Inactive AMOXICILLIN 875 MG TABS 1 tab by mouth twice daily 201 07/19/27 AMOXICILLIN 875 MG TABS 589495 AMOXICILLIN Inactive AMOXICILLIN 875 MG TABS 1 tab by mouth twice daily 201 08/09/13 AMOXICILLIN 875 MG TABS 929303 AMOXICILLIN Inactive CIPRO 500 MG TAB 1 tablet by mouth twice daily CIPRO 500 MG TAB 966641 CIPROFLOXACIN HCL Inactive BACTRIM DS 800-160 MG TAB 1 tab by mouth twice daily 2 BACTRIM DS 800-160 MG TAB TRIMETHOPRIM-SULFAMETHOXAZOLE Inac tive LEVAQUIN 500 MG TABS 1 PO q day x 7 days LEVAQUIN 500 MG TABS 760154 LEVOFLOXACIN Inactive CLINDAMYCIN HCL 300 MG CAPS 1 po QID x 7 days CLINDAMYCIN HCL 300 MG CAPS 238970 CLINDAMYCIN HCL Inactive AUGMENTIN 875-125 MG TAB 1 tab by mouth twice daily with food 20 22/05/07 AUGMENTIN 875-125 MG TAB 921587 AMOXICILLIN-POT [place]A [place] Inactive DIFLUCAN 150 MG TAB 1 qODay x 2 doses DIFLUCAN 150 MG TAB 562002 FLUCONAZOLE Inactive Advance Directives Directive Description Start Date PERMISSION TO SHARE Immunizations Vaccine Administration Date Value Standard Alf cription Seasonal influenza vaccine, injectable, containing preservative, for > 3 years old (Afluria, FluLaval, Fluzone, Fluvirin, Fluarix, Agriflu(>= 18 yo)) Fluzone (>3 yrs.) [[id number]] Influenza, seasonal, inject able Seasonal influenza vaccine, injectable, preservative free, for > 3 years old (Afluria, FluLaval, Fluzone, Fluvirin, Fluarix, Agriflu(>= 18 yo)) Fluzone preservative free (>3 yrs.) [[id number]] Influenza, seasonal, injectable, preservative free Seasonal influenza vaccine, injectable, containing preservative, for > 3 years old (Afluria, FluLaval, Fluzone, Fluvirin, Fluarix, Agriflu(>= 18 yo)) Fluzone (>3 yrs.) [[id number]] Influenza, seasonal, inject able Seasonal influenza vaccine, injectable, containing preservative, for > 3 years old (Afluria, FluLaval, Fluzone, Fluvirin, Fluarix, Agriflu(>= 18 yo)) Fluzone (>3 yrs.) [[id number]] Influenza, seasonal, inject able dT (Diphtheria and [...] ... - Chemistry sodium, serum 140 mmol/L 684-011 1073/02/24 potassium, serum 4.3 mmol/L 3.5-5.2 chloride, serum [...] 4.3-6.0 Lab Report: T3, TOTAL, INSULIN - Keypunch Operator ry triiodothyronine (T3), serum 78 ng/dL 76-181 Office Visit: low blood sugars - Chemis try cholesterol, target level 200 mg/dL triglyceride, target level 200 mg/dL HDL cholesterol, serum, target level 35 mg/dL LDL target level 100 mg/dL Encounters Code Encounter Date Provider Facility CPT-00814 Level 2 Est. Patient 16:57:09 REEL AND REWINDER OPERATOR Kalpesh goins MD [facility] CPT-06860 Level 3 Est. Patient 14:03:08 REEL AND REWINDER OPERATOR Abdirahman Rios MD [facility] CPT-96887 Level 3 Est. Patient 18:12:34 CDT Shola W Cloven [facility] CPT-49879 Level 3 Est. Patient 19:34:46 CDT Shola MCGILL [facility] CPT-99972 Level 3 Est. Patient 14:19:37 CDT Abdirahman Rios MD [facility] CPT-55513 Level 3 Est. Patient 14:11:58 CDT Kalpesh goins MD [facility]-67120 Level 3 Est. Patient 16:50:00 CDT [facility] Level 3 Est. Patient 17:11:32 REEL AND REWINDER OPERATOR Brandie bates MD PhD [facility]-98193 Level 3 Est. Patient 16:31:47 REEL AND REWINDER OPERATOR Shola Wright [facility] CPT-77686 Level 3 Est. Patient 17:51:10 REEL AND REWINDER OPERATOR Abhinav Galvan MD [facility]-89798 Level 4 Est. Patient 12:54:56 REEL AND REWINDER OPERATOR Kalpesh goins MD [facility]-73190 Level 4 Est. Patient 12:53:56 REEL AND REWINDER OPERATOR Kalpesh goins MD [facility]-76560 Level 3 Est. Patient 17:56:58 CDT Shola Wright [facility] CPT-95901 Level 3 Est. Patient 14:26:20 CDT Janak butcher [facility] CPT-92530 Level 3 Est. Patient 09:38:41 CDT Shola Wright [facility] CPT-03714 Level 3 Est. Patient 14:45:26 CDT Edilberto tiwari DO [facility]-07958 Level 3 Est. Patient 10:51:33 CD[facility] Est[facility] Patient 11:57:55 REEL AND REWINDER OPERATOR Shola W Cloven PA [facility] CPT-77616 Level 3 Est. Patient 09:53:33 REEL AND REWINDER OPERATOR Edilberto tiwari [facility] CPT-12171 Level 3 Est. Patient 14:42:54 REEL AND REWINDER OPERATOR Abhinav Galvan MD [facility] CPT-90602 Level 3 Est. Patient 15:10:02 CDT Janak butcher [facility] CPT-84265 Level 3 Est. Patient 15:20:20 CDT Theo dennis MD [facility] CPT-26206 Level 2 Est. Patient 14:08:57 CDT Kalpesh goins MD [facility] CPT-08571 Level 3 Est. Patient 13:56:19 CDT Abdirahman Rios MD [facility] CPT-92865 Level 3 Est. Patient 13:59:37 CDT Abdirahman Rios MD [facility] CPT-16467 Level 2 Est. Patient 14:44:59 CDT Kalpesh goins MD [facility] CPT-40349 Level 3 Est. Patient 06:06:23 CDT Edilberto tiwari [facility] CPT-79205 Level 3 Est. Patient 15:23:54 CDT Abdirahman Rios MD [facility] CPT-49393 Level 3 Est. Patient 15:43:49 CDT Abdirahman Rios MD [facility] CPT-94909 Level 3 Est. Patient 12:46:47 REEL AND REWINDER OPERATOR Abdirahman Rios MD [facility] CPT-08871 Level 3 Est. Patient 08:13:35 REEL AND REWINDER OPERATOR Abdirahman Rios MD [facility] CPT-46349 Level 2 Est. Patient 09:36:42 REEL AND REWINDER OPERATOR Abdirahman Rios MD [facility] CPT-77008 Level 3 Est. Patient 10:56:43 CDT Abdirahman Rios MD [facility] CPT-13735 Level 3 Est. Patient 18:24:52 CDT Abdirahman Rios MD [facility] CPT-14796 Level 3 Est. Patient 13:27:22 CDT Abdirahman Rios MD [facility] Procedures Code Procedure Name Date Entry Date Standard Desc ription CPT-99040 Postop F/U Visit 18:41:07 REEL AND REWINDER OPERATOR CPT-05414 Postop F/U Visit 08:19:08 REEL AND REWINDER OPERATOR CPT-77929 Immunization Single Admin 16:41:53 CDT 2013 CPT-05486 Fluzone Quadrivalent Intramuscular Suspe nsion 0.5 ML 16:41:53 CDT CPT-OV Office Visit 16:39:18 CDT CPT-OV Office Visit 16:16:36 CDT CPT-OV Office Visit 15:34:48 CDT CPT-86559 Postop F/U Visit 14:50:12 CDT CPT-10407 Postop F/U Visit 14:41:10 CDT CPT-04448 Venipuncture Draw Fee 11:38:04 REEL AND REWINDER OPERATOR CPT-43018 Postop F/U Visit 19:02:59 REEL AND REWINDER OPERATOR CPT-97336 Postop F/U Visit 12:04:54 REEL AND REWINDER OPERATOR CPT-04933 Administration single or combination vac cine inc oral 15:56:43 CDT CPT-94175 Influenza split virus > age 3 15:56:43 CDT CPT-26393 Hand comp min 3V 14:25:19 CDT CPT-16471 Postop F/U Visit 21:40:51 CDT CPT-40502 Postop F/U Visit 10:58:43 CDT CPT-30593 Administration single or combination vac cine inc oral 12:33:54 REEL AND REWINDER OPERATOR CPT-72772 Influenza Preservative Free split virus >age 3 12:33:54 REEL AND REWINDER OPERATOR CPT-55765 Administration single or combination vac cine inc oral 09:30:51 CDT CPT-57608 Influenza split virus > age 3 09:30:51 CDT CPT-58130 Postop F/U Visit 15:14:53 CDT CPT-09286 Postop F/U Visit 13:50:14 CDT CPT-56633 Postop F/U Visit 13:34:52 CDT CPT-OV Office Visit 16:55:03 CDT CPT-70099 [place] of cervix w bx ECC 13:32:50 CDT 10/19 CPT-J1885 Toradol 60 mg (Ketorolac) 15:31:59 CDT 2011 CPT-J1885 Toradol 60 mg (Ketorolac) 15:23:54 CDT 2011 CPT-04509 Visit 11:34:37 REEL AND REWINDER OPERATOR CPT-26822 Visit 10:52:39 REEL AND REWINDER OPERATOR CPT-11506 Visit 10:12:02 REEL AND REWINDER OPERATOR CPT-91259 Visit 11:22:43 REEL AND REWINDER OPERATOR CPT-42575 Visit 11:24:12 REEL AND REWINDER OPERATOR CPT-61016 Visit 10:47:05 REEL AND REWINDER OPERATOR CPT-OV Office Visit 10:26:16 REEL AND REWINDER OPERATOR CPT-OV Office Visit 15:34:31 REEL AND REWINDER OPERATOR CPT-43777 Visit 10:42:08 REEL AND REWINDER OPERATOR CPT-54133 Visit 10:52:45 REEL AND REWINDER OPERATOR CPT-000 Give Appropriate Flu Vaccine 16:56:41 CDT 2 CPT-19063 Administration single or combination vac cine inc oral 10:33:21 CDT CPT-43718 Influenza split virus > age 3 10:33:21 CDT CPT-82856 Visit 13:23:09 CDT CPT-54337 Visit 18:24:52 CDT CPT-04726 Sono OB comp > 14 weeks 12:07:49 CDT 04/07
--- OUTSIDE RECORDS SUMMARY | 2020-01-18 17:32 | XMS REPORT ---
Author Author [email or web address] Medic al Staff, TOMY Rashid Organization [email or web address] Address [address], [place] [id number] Phone [phone] Care Team Providers Care [facility] Stained [employer] Name Role Phone CHRISTOPHER YORK, CAROLEE PP [phone] Summary purpose TRANSITION OF CARE AUTO GENERATION [...] 10 mg-325 mg tablet 1 tablet oral WA N Every 12 Hours Current Patient recall [...] and/or laboratory data RESULTS Therapeutic Drug Monitoring [id number]:00 Result Normal Range Units Vancomycin Trough L 6.8 10-22 ug /ml :20:00 Result Normal Range Units Vancomycin Trough L 7.0 10-22 ug /ml History of procedures No procedures recorded for this patient visit. Functional status Functional Status Finding Observation Time Hearing Prob Loc none [id number] Vision Problems yes :01 Vision Correct Dev glasses :01 Ambulation Asst Dev none : Oxygen no : Oxygen Flow Rate RA [id number] IV Site Location L hand :24 IV Type peripheral :24 IV Site Information existing : IV Site Start Attmpt 2 times :31 IV Site Isael 20 :24 IV Site Appearance WNL :24 IV Site Color clear :24 IV Site Patent yes :24 Dressing Changed yes : Dressing Type occlusive :24 Nursing Note Pt discharged; tolerated IV vanc infusio n without difficulty. :26 Cognitive Status Finding Observation Time Oriented To Date 5 Yes : Oriented To Place 5 Yes :01 Name 3 Objects 3 Yes :01 Name Object in Rm 2 Yes :01 Recall 3 Objects 3 Yes :01 Repeats a Phrase 1 Yes : Follows Verbal Direc 3 Yes :01 Follows Written Dire 1 Yes :01 Write a Sentance 1 Yes :01 Draw an Object 1 Yes :01 Mini Mental Total 25 points :01 Vital signs Type Value Date Respiration Rate 18breaths per minute : 19 Pulse 77beats per minute :19 Oxygen Saturation 97% :19 BP Systolic 116mmHg :19 BP Diastolic 57mmHg :19 Temperature 97.0F :19 Height 63inches :58 Weight 224LB :58 Social history No Social History or smoking status observations were recorded for this visit. ( Unknown if ever smoked.) Treatment Plan No treatment plan text is available for this visit. Hospital discharge instructions Valuables no PNE Vac never Flu Vac 04/2014 Tetanus Vac 06/2013
--- OUTSIDE RECORDS SUMMARY | 2020-01-18 17:32 | XMS REPORT | Clinical Summary ---
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 Hidradenitis AFTERCARE FOLLOW SURGERY SKIN&SUBCUT TISSUE NEC [...] 500 MG CAP 1 po qid CEPHALEXIN [id number] Act krishna Edilberto Keesha Ned FIELD Active PERCOCET 5-325 MG TAB 1 every 6 hours as needed OXYCODONE-ACETAMINOPHEN 03449353188 No Longer Active Shola MCGILL Active LC-5 LIDOCAINE 5 % CREA apply 1 time daily to affected area 2013 LIDOCAINE (ANORECTAL) 00542936412 No Longer Active Jillina F radhaell PILE DRIVER Active HYDROCODONE-ACETAMINOPHEN 5-325 MG TABS 2 tablets by m out every 8 hours as needed for pain HYDROCODONE-ACETAMINOPHEN 30464134455 Acti ve Shola MCGILL Active HYDROCODONE-ACETAMINOPHEN 10-325 MG TABS 1 by mouth ev chaka 8 hours as needed for pain HYDROCODONE-ACETAMINOPHEN 85400400820 No Longer Active Jillina Frazell PILE DRIVER Active LORATADINE 10 MG TABS 1 tablet by mouth daily L ORATADINE 48583288713 No Longer Active Jillina Frazell PILE DRIVER Active DIFLUCAN 150 MG TAB 1 qODay x 2 doses FLUCONAZO LE 28609186981 No Longer Active Jillina Frazell PILE DRIVER Active CYCLOBENZAPRINE HCL 10 MG TABS 1/2 - 1 tab PO tid PRN back p ain, muscle spasm CYCLOBENZAPRINE HCL 65549728960 No Longer Active Karen herson Frazell PILE DRIVER Active AUGMENTIN 875-125 MG TAB 1 tab by mouth twice daily with food 20 22/05/07 AMOXICILLIN-POT CLAVULANATE 02073523552 No Longer Active Loida Rios MD Active MOBIC 15 MG TABS 1 tab daily MELOXICAM 536637831 14 No Longer Active Abdirahman Rios MD Active PERCOCET 7.5-325 MG TABS 1 PO tid PRN pain OXYCODONE-ACETAMINOPHEN 10040375192 No Longer Active Abdirahman Rios MD Active LIDODERM 5 % PTCH One patch to painful area SD N. On for 12 hrs, off for 12 hrs. LIDOCAINE 04143291345 No Longer Active Abdirahman Rios MD Active PERCOCET 7.5-325 MG TABS 1 PO q 8 hrs PRN pain OXYCODONE-ACETAMINOPHEN 98094030709 No Longer Active Shola MCGILL Active HYDROCODONE-ACETAMINOPHEN 7.5-325 MG TABS 1 by mouth e very 6 hours as needed for pain HYDROCODONE-ACETAMINOPHEN 96004176448 No Longer Active Good Julian MD Active CLINDAMYCIN HCL 300 MG CAPS 1 po QID x 7 days CLINDAMYCIN HCL 25901598234 No Longer Active Abdirahman Rios MD Activ e BACTRIM DS 800-160 MG TABS 1 po BID x 7 days 5 SULFAMETHOXAZOLE-TRIMETHOPRIM 46183575390 No Longer Active Abdirahman Rios MD Active ENDOCET 10-325 MG TABS 1 q 6 hr prn OXYCODONE-ACETAMINOPHEN 79132138130 No Longer Active Abdirahman Rios MD Active IBUPROFEN 800 MG TABS 1 tid prn IBUPROFEN 614116 96172 No Longer Active Abdirahman Rios MD Active BACTRIM DS 800-160 MG TABS by mouth twice a day 11/05 SULFAMETHOXAZOLE-TRIMETHOPRIM 14143242953 No Longer Active Good Julian MD Active HYDROCODONE-ACETAMINOPHEN 7.5-325 MG TABS 1 four times a day as needed for pain HYDROCODONE-ACETAMINOPHEN 86077543307 No Longer Activ e Good Julian MD Active KEFLEX 500 MG CAP 1 tab po tid CEPHALEXIN 030696 02777 No Longer Active Hira Moser APRN Active IBUPROFEN 800 MG TAB 1 pill three times daily as needed for pain IBUPROFEN 29817888146 No Longer Active Kalpesh Dong MD Active PROMETHAZINE-CODEINE 6.25-10 MG/5ML SYRP 1 tsp every 6 hrs prn c ough PROMETHAZINE-CODEINE 15840198389 No Longer Active Kalpesh Carr Active ALPRAZOLAM 0.5 MG TABS 1 PO bid PRN ALPRAZOLAM 929319 61448 Active Jillina Frazell PILE DRIVER Active HYDROCODONE-ACETAMINOPHEN 5-325 MG TABS 1 tab by mouth every 6 hours as needed HYDROCODONE-ACETAMINOPHEN 73068200490 No Longer Activ e Shola MCGILL Active CEPHALEXIN 500 MG CAPS 1 PO bid x 7 days CEPHAL EXIN 97636019935 No Longer Active Shola MCGILL Active BACTRIM DS 800-160 MG TAB 1 tab by mouth twice daily 2 TRIMETHOPRIM-SULFAMETHOXAZOLE 49698758610 No Longer Active Kalpesh Dong MD Active HYDROCODONE-ACETAMINOPHEN 5-325 MG TABS 1 PO tid PRN pain 5 HYDROCODONE-ACETAMINOPHEN 92818654230 No Longer Active Abhinav Galvan MD Active IMPLANON 68 MG IMPL IMPLANTED IN LEFT ARM ETONO GESTREL 61865610501 No Longer Active Hira Moser APRN Active AMOXICILLIN 500 MG TABS 2 tabs PO bid x 10 d AM OXICILLIN 06760697423 No Longer Active Kalpesh Dong MD Active LEVAQUIN 500 MG TABS 1 PO q day x 7 days LEVOFL OXACIN 26389169183 No Longer Active Shola MCGILL Active PROAIR HFA 108 (90 BASE) MCG/ACT AERS 2 puff q 4-6 hrs PRN ALBUTEROL SULFATE 60434810135 Active Edilberto Marino DO Active FIORICET 50-325-40 MG TABS 2 PO q 8 hrs PRN FOSTER [id number] Active Shola MCGILL Active AMITRIPTYLINE HCL 25 MG TAB 1 tab by mouth daily 60 minutes before bedtime AMITRIPTYLINE HCL 05141842790 No Longer Active Shola MCGILL Active LORTAB 5 5-500 MG TABS 1/2 to 1 tablet by mouth go ry 6 hours as needed for pain HYDROCODONE-ACETAMINOPHEN 63155849974 No Longer Active Shola MCGILL Active CEPHALEXIN 500 MG TABS Take one by mouth four times daily, morning, noon, early evening and bedtime. CEPHALEXIN 96691587458 No Long er Active Hira Moser PILE DRIVER Active TYLENOL/CODEINE #3 300-30 MG TAB 1-2 po q6hr PRN Pain ACETAMINOPHEN-CODEINE 10264308950 No Longer Active Edilberto Marino DO Active PRISTIQ 50 MG [id number] 1 po qd DESVENLAFAXI NE SUCCINATE 88245845526 No Longer Active Edilberto Marino DO Active PENICILLIN V POTASSIUM 500 MG TAB 1 four times a day 2 PENICILLIN V POTASSIUM 37846716772 No Longer Active Edilberto Marino DO Active DOXYCYCLINE HYCLATE 100 MG CAPS Take one (1) tablet by mouth twice a day DOXYCYCLINE HYCLATE 76126683210 No Longer Active Ronnie Galvan MD Active HYDROCODONE-ACETAMINOPHEN 5-325 MG TABS 1 po q 6hr PRN Pain 2011 HYDROCODONE-ACETAMINOPHEN 81377170567 No Longer Active Jerson Perez RN Active BACTRIM DS 800-160 MG TAB 1 tab by mouth twice daily 2 TRIMETHOPRIM-SULFAMETHOXAZOLE 85878755180 No Longer Active Kalpesh Dong MD Active LORTAB 5 5-500 MG TABS 1/2 to 1 tablet by mouth go ry 4 hours as needed for pain HYDROCODONE-ACETAMINOPHEN 30354753388 No Longer Active Kalpesh Dong MD Active GENERESS FE 0.8-25 MG-MCG CHEW Take one by mouth daily NORETHIN-ETH ESTRADIOL-FE 05304830138 No Longer Active Kalpesh Dong MD Active HYDROCODONE-ACETAMINOPHEN 7.5-500 MG TABS 1-2 every 4 hours as needed HYDROCODONE-ACETAMINOPHEN 63784157299 No Longer Activ e Kalpesh Dong MD Active FERROUS SULFATE 325 (65 FE) MG TABS 1 tablet by mouth twice yung y FERROUS SULFATE 44052839222 No Longer Active Kalpesh Dong MD Active IBUPROFEN 600 MG TAB 1 po q6-8hr PRN IBUPROFEN 41691351995 No Longer Active Kalpesh Dong MD Active SPIRONOLACTONE 25 MG TAB 1 tablet by mouth daily 01/22 SPIRONOLACTONE 22695624275 No Longer Active Kalpesh Dong MD Acti ve HYDROCODONE-ACETAMINOPHEN 7.5-325 MG TABS 1 po QID PRN Pain 2011 HYDROCODONE-ACETAMINOPHEN 49426423523 No Longer Active Kalpesh Dong MD Active CLINDAMYCIN HCL 300 MG CAPS 1 po q6hr x 7 days CLINDAMYCIN HCL 92119464496 No Longer Active Edilberto Marino DO Active PREDNISONE 20 MG TAB 2 tabs daily for 4 days, 1 t ab daily for 4 days, 1/2 tab daily for 4 days PREDNISONE 88036152600 No Longer Active Edilberto Marino DO Active PERCOCET 5-325 MG TABS 1 tablet by mouth every 6 hours as ne eded for pain OXYCODONE-ACETAMINOPHEN 94816382197 No Longer Active Abdirahman Rios MD Active VITAMINS TABS Take one by mouth daily MV & MIN W/FE-FA TABS 74772342376 No Longer Active Abdirahman Rios MD Active LUIS 3-0.02 MG TABS 1 tablet by mouth daily as directed DROSPIRENONE-ETHINYL ESTRADIOL 22634116627 No Longer Active Abdirahman Rios MD Active LORATADINE 10 MG TABS 1 tablet by mouth daily L ORATADINE 98968734887 No Longer Active Kalpesh Dong MD Active HYDROCODONE-ACETAMINOPHEN 5-325 MG TABS 1 po q 6hr PRN Pain 2010 HYDROCODONE-ACETAMINOPHEN 69395406686 No Longer Active Edilberto Marino DO Active BACTRIM DS 800-160 MG TAB 1 tab by mouth twice daily 2 TRIMETHOPRIM-SULFAMETHOXAZOLE 31495612331 No Longer Active Abdirahman Rios MD Active 28-0.8 MG TABS Take one by mouth daily 09/20 VIT-FE FUMARATE-FA 34335404611 No Longer Active Abdirahman Rios MD Active CIPRO 500 MG TAB 1 tablet by mouth twice daily CIPROFLOXACIN HCL 77434229147 No Longer Active Abdirahman Rios MD Active BENADRYL 25 MG CAP 1 po q8hr PRN Congestion DIPHENHYDRAMINE HCL 15447102414 No Longer Active Abdirahman Rios MD Active ZOLOFT 50 MG TAB 1 po qd SERTRALINE HCL 884140 26512 No Longer Active Abdirahman Rios MD Active AMOXICILLIN 875 MG TABS 1 tab by mouth twice daily 201 08/09/13 AMOXICILLIN 34612741076 No Longer Active Abdirahman Rios MD Activ e AMOXICILLIN 875 MG TABS 1 tab by mouth twice daily 201 07/19/27 AMOXICILLIN 08408281823 No Longer Active Abdirahman Rios MD Activ e BACTRIM DS 800-160 MG TAB 2 tab by mouth twice daily 2 TRIMETHOPRIM-SULFAMETHOXAZOLE 53337382380 No Longer Active Abdirahman Rios MD Active KEFLEX 500 MG CAP 1 po tid x 10 days CEPHALEXIN 03683793494 No Longer Active Abdirahman Rios MD Active AMOXICILLIN 875 MG TABS 1 tab by mouth twice daily 201 07/18/07 AMOXICILLIN 34630814539 No Longer Active Abdirahman Rios MD Activ e BACTRIM DS 800-160 MG TAB 2 tab by mouth twice daily 2 BACTRIM DS 800-160 MG TAB TRIMETHOPRIM-SULFAMETHOXAZOLE Inactive ZOLOFT 50 MG TAB 1 po qd ZOLOFT 50 MG TAB 3129 41 SERTRALINE HCL Inactive BENADRYL 25 MG CAP 1 po q8hr PRN Congestion BENADRYL 25 MG CAP 6797093 DIPHENHYDRAMINE HCL Inactive 28-0.8 MG TABS Take one by mouth daily 09/20 28-0.8 MG TABS VIT-FE FUMARATE-FA Inactive HYDROCODONE-ACETAMINOPHEN 5-325 MG TABS 1 po q 6hr PRN Pain 2010 HYDROCODONE-ACETAMINOPHEN 5-325 MG TABS 464068 HYDROCODONE-ACETAMINOPHEN Inactive LORATADINE 10 MG TABS 1 tablet by mouth daily LORATADINE 10 MG TABS 587750 LORATADINE Inactive LUIS 3-0.02 MG TABS 1 tablet by mouth daily as directed LUIS 3-0.02 MG TABS DROSPIRENONE-ETHINYL ESTRADIOL Inactive VITAMINS TABS Take one by mouth daily VITAMINS TABS MV & MIN W/FE-FA TABS Inactive PERCOCET 5-325 MG TABS 1 tablet by mouth every 6 hours as ne eded for pain PERCOCET 5-325 MG TABS 0037722 OXYCODONE-ACETAMIN OPHEN Inactive PREDNISONE 20 MG TAB 2 tabs daily for 4 days, 1 t ab daily for 4 days, 1/2 tab daily for 4 days PREDNISONE 20 MG TAB 327874 PREDNISON E Inactive CLINDAMYCIN HCL 300 MG CAPS 1 po q6hr x 7 days CLINDAMYCIN HCL 300 MG CAPS 123940 CLINDAMYCIN HCL Inactive HYDROCODONE-ACETAMINOPHEN 7.5-325 MG TABS 1 po QID PRN Pain 2011 HYDROCODONE-ACETAMINOPHEN 7.5-325 MG TABS 329217 HYDROCODONE-ACETAMINOPHEN Inactive SPIRONOLACTONE 25 MG TAB 1 tablet by mouth daily 01/22 SPIRONOLACTONE 25 MG TAB 071940 SPIRONOLACTONE Inactive IBUPROFEN 600 MG TAB 1 po q6-8hr PRN IBUPROFEN 600 MG TAB 264666 IBUPROFEN Inactive FERROUS SULFATE 325 (65 FE) MG TABS 1 tablet by mouth twice yung y FERROUS SULFATE 325 (65 FE) MG TABS 786029 FERROUS SULF ATE Inactive HYDROCODONE-ACETAMINOPHEN 7.5-500 MG [...] PRN Pain 2011 HYDROCODONE-ACETAMINOPHEN 5-325 MG TABS 191115 HYDROCODONE-ACETAMINOPHEN Inactive DOXYCYCLINE HYCLATE 100 MG CAPS Take one (1) tablet by mouth twice a day DOXYCYCLINE HYCLATE 100 MG CAPS 502746 DOXYCYCLINE HYCLATE Inactive PENICILLIN V POTASSIUM 500 MG TAB 1 four times a day 2 PENICILLIN V POTASSIUM 500 MG TAB 286836 PENICILLIN V POTASSIUM Larose ctive PRISTIQ 50 MG [id number] 1 po qd PRISTIQ 50 MG [id number] DESVENLAFAXINE SUCCINATE Inactive TYLENOL/CODEINE #3 300-30 MG TAB 1-2 po q6hr PRN Pain TYLENOL/CODEINE #3 300-30 MG TAB 597376 ACETAMINOPHEN-CODEINE Inact krishna CEPHALEXIN 500 MG TABS Take one by mouth four times daily, morning, noon, early evening and bedtime. CEPHALEXIN 500 MG TABS 595502 CEPHALEXIN Inactive LORTAB 5 5-500 MG TABS 1/2 to 1 tablet by mouth go ry 6 hours as needed for pain LORTAB 5 5-500 MG TABS HYDROCODONE-A CETAMINOPHEN Inactive AMITRIPTYLINE HCL 25 MG TAB 1 tab by mouth daily 60 minutes before bedtime AMITRIPTYLINE HCL 25 MG TAB 252813 AMITRIPTYLINE HCL Inactive AMOXICILLIN 500 MG TABS 2 tabs PO bid x 10 d 7 AMOXICILLIN 500 MG TABS 779613 AMOXICILLIN Inactive IMPLANON 68 MG IMPL IMPLANTED IN LEFT ARM IMPLANON 68 MG IMPL ETONOGESTREL Inactive HYDROCODONE-ACETAMINOPHEN 5-325 MG TABS 1 PO tid PRN pain 5 HYDROCODONE-ACETAMINOPHEN 5-325 MG TABS 227680 HYDROCODONE-ACETAMIN OPHEN Inactive BACTRIM DS 800-160 MG TAB 1 tab by mouth twice daily 2 BACTRIM DS 800-160 MG TAB TRIMETHOPRIM-SULFAMETHOXAZOLE Inac tive CEPHALEXIN 500 MG CAPS 1 PO bid x 7 days CEPHALEXIN 500 MG CAPS 416342 CEPHALEXIN Inactive HYDROCODONE-ACETAMINOPHEN 5-325 MG TABS 1 tab by mouth every 6 hours as needed HYDROCODONE-ACETAMINOPHEN 5-325 MG TABS 493419 HYDROCODONE-ACETAMINOPHEN Inactive PROMETHAZINE-CODEINE 6.25-10 MG/5ML SYRP 1 tsp every 6 hrs prn c ough PROMETHAZINE-CODEINE 6.25-10 MG/5ML SYRP 677863 PROMETH AZINE-CODEINE Inactive IBUPROFEN 800 MG TAB 1 pill three times daily as needed for pain IBUPROFEN 800 MG TAB 610767 IBUPROFEN Inactive KEFLEX 500 MG CAP 1 tab po tid KEFLEX 500 MG CAP 089057 CEPHALEXIN Inactive HYDROCODONE-ACETAMINOPHEN 7.5-325 MG TABS 1 four times a day as needed for pain HYDROCODONE-ACETAMINOPHEN 7.5-325 MG TABS 657585 HYDROCODONE-ACETAMINOPHEN Inactive BACTRIM DS 800-160 MG TABS by mouth twice a day 11/05 BACTRIM DS 800-160 MG TABS SULFAMETHOXAZOLE-TRIMETHOPRIM Inactive IBUPROFEN 800 MG TABS 1 tid prn IBUPROFEN 800 MG TABS 562489 IBUPROFEN Inactive ENDOCET 10-325 MG TABS 1 q 6 hr prn ENDOC ET 10-325 MG TABS 0279613 OXYCODONE-ACETAMINOPHEN Inactive HYDROCODONE-ACETAMINOPHEN 7.5-325 MG TABS 1 by mouth e very 6 hours as needed for pain HYDROCODONE-ACETAMINOPHEN 7.5-325 MG TABS 888472 HYDROCODONE-ACETAMINOPHEN Inactive PERCOCET 7.5-325 MG TABS 1 PO q 8 hrs PRN pain PERCOCET 7.5-325 MG TABS 7005919 OXYCODONE-ACETAMINOPHEN Inactive LIDODERM 5 % PTCH One patch to painful area SD N. On for 12 hrs, off for 12 hrs. LIDODERM 5 % PTCH 4603470 LIDOCAINE Inactiv e PERCOCET 7.5-325 MG TABS 1 PO tid PRN pain PERCOCET 7.5- 325 MG TABS 0493467 OXYCODONE-ACETAMINOPHEN Inactive MOBIC 15 MG TABS 1 tab daily MOBIC 15 MG TABS 15 2695 MELOXICAM Inactive CYCLOBENZAPRINE HCL 10 MG TABS 1/2 - 1 tab PO tid PRN back p ain, muscle spasm CYCLOBENZAPRINE HCL 10 MG TABS 716673 CYCLOBENZA JOSEPH HCL Inactive LORATADINE 10 MG TABS 1 tablet by mouth daily LORATADINE 10 MG TABS 383000 LORATADINE Inactive HYDROCODONE-ACETAMINOPHEN 10-325 MG TABS 1 by mouth ev chaka 8 hours as needed for pain HYDROCODONE-ACETAMINOPHEN 10-325 MG TABS 528230 HYDROCODONE-ACETAMINOPHEN Inactive LC-5 LIDOCAINE 5 % CREA apply 1 time daily to affected area 2013 LC-5 LIDOCAINE 5 % CREA LIDOCAINE (ANORECTAL) In active PERCOCET 5-325 MG TAB 1 every 6 hours as needed PERCOCET 5-325 MG TAB 1531564 OXYCODONE-ACETAMINOPHEN Inactive AMOXICILLIN 875 MG TABS 1 tab by mouth twice daily 201 07/18/07 AMOXICILLIN 875 MG TABS 128319 AMOXICILLIN Inactive KEFLEX 500 MG CAP 1 po tid x 10 days KEFLEX 500 MG CAP 408415 CEPHALEXIN Inactive AMOXICILLIN 875 MG TABS 1 tab by mouth twice daily 201 07/19/27 AMOXICILLIN 875 MG TABS 060884 AMOXICILLIN Inactive AMOXICILLIN 875 MG TABS 1 tab by mouth twice daily 201 08/09/13 AMOXICILLIN 875 MG TABS 303325 AMOXICILLIN Inactive CIPRO 500 MG TAB 1 tablet by mouth twice daily CIPRO 500 MG TAB 240441 CIPROFLOXACIN HCL Inactive BACTRIM DS 800-160 MG TAB 1 tab by mouth twice daily 2 BACTRIM DS 800-160 MG TAB TRIMETHOPRIM-SULFAMETHOXAZOLE Inac tive LEVAQUIN 500 MG TABS 1 PO q day x 7 days LEVAQUIN 500 MG TABS 592986 LEVOFLOXACIN Inactive CLINDAMYCIN HCL 300 MG CAPS 1 po QID x 7 days CLINDAMYCIN HCL 300 MG CAPS 241943 CLINDAMYCIN HCL Inactive AUGMENTIN 875-125 MG TAB 1 tab by mouth twice daily with food 22/05/07 AUGMENTIN 875-125 MG TAB 539455 AMOXICILLIN-POT [place]A [place] Inactive DIFLUCAN 150 MG TAB 1 qODay x 2 doses DIFLUCAN 150 MG TAB 437901 FLUCONAZOLE Inactive Advance Directives Directive Description Start Date PERMISSION TO SHARE Immunizations Vaccine Administration Date Value Standard Alf cription Seasonal influenza vaccine, injectable, containing preservative, for > 3 years old (Afluria, FluLaval, Fluzone, Fluvirin, Fluarix, Agriflu(>= 18 yo)) Fluzone (>3 yrs.) [[id number]] Influenza, seasonal, inject able Seasonal influenza vaccine, injectable, preservative free, for > 3 years old (Afluria, FluLaval, Fluzone, Fluvirin, Fluarix, Agriflu(>= 18 yo)) Fluzone preservative free (>3 yrs.) [[id number]] Influenza, seasonal, injectable, preservative free Seasonal influenza vaccine, injectable, containing preservative, for > 3 years old (Afluria, FluLaval, Fluzone, Fluvirin, Fluarix, Agriflu(>= 18 yo)) Fluzone (>3 yrs.) [[id number]] Influenza, seasonal, inject able Seasonal influenza vaccine, injectable, containing preservative, for > 3 years old (Afluria, FluLaval, Fluzone, Fluvirin, Fluarix, Agriflu(>= 18 yo)) Fluzone (>3 yrs.) [[id number]] Influenza, seasonal, inject able dT (Diphtheria and [...] ... - Chemistry sodium, serum 140 mmol/L 011-057 4576/02/24 potassium, serum 4.3 mmol/L 3.5-5.2 chloride, serum [...] 4.3-6.0 Lab Report: T3, TOTAL, INSULIN - Hydrometer Tester ry triiodothyronine (T3), serum 78 ng/dL 76-181 Office Visit: low blood sugars - Chemis try cholesterol, target level 200 mg/dL triglyceride, target level 200 mg/dL HDL cholesterol, serum, target level 35 mg/dL LDL target level 100 mg/dL Encounters Code Encounter Date Provider Facility CPT-03660 Level 3 Est. Patient 17:22:33 MUSEUM DOCENT Edilberto tiwari DO [facility] CPT-30850 Level 2 Est. Patient 16:57:09 MUSEUM DOCENT Kalpesh goins MD [facility] CPT-67453 Level 3 Est. Patient 14:03:08 MUSEUM DOCENT Abdirahman Rios MD [facility] CPT-56157 Level 3 Est. Patient 18:12:34 CDT Shola Wright [facility] CPT-85561 Level 3 Est. Patient 19:34:46 CDT Shola Wright [facility] CPT-24284 Level 3 Est. Patient 14:19:37 CDT Abdirahman Rios MD [facility] CPT-42618 Level 3 Est. Patient 14:11:58 CDT Kalpesh goins MD [facility] CPT-14050 Level 3 Est. Patient 16:50:00 CDT Michelle MERCADO [facility] CPT-82615 Level 3 Est. Patient 17:11:32 MUSEUM DOCENT Brandie bates MD PhD [facility] CPT-12165 Level 3 Est. Patient 16:31:47 MUSEUM DOCENT Shola Wright [facility] CPT-43518 Level 3 Est. Patient 17:51:10 MUSEUM DOCENT Abhinav Galvan MD [facility] CPT-80480 Level 4 Est. Patient 12:54:56 MUSEUM DOCENT Kalpesh goins MD [facility] CPT-87299 Level 4 Est. Patient 12:53:56 MUSEUM DOCENT Kalpesh goins MD [facility]-13970 Level 3 Est. Patient 17:56:58 CDT Shola Thao Adriana [facility] CPT-84313 Level 3 Est. Patient 14:26:20 CDT Janak butcher [facility] CPT-67367 Level 3 Est. Patient 09:38:41 CDT Shola Thao Adriana [facility] CPT-65664 Level 3 Est. Patient 14:45:26 CDT Edilberto tiwari [facility] CPT-81631 Level 3 Est. Patient 10:51:33 [facility] Est. Patient 11:57:55 MUSEUM DOCENT Shola Houghsabi [facility] CPT-07969 Level 3 Est. Patient 09:53:33 MUSEUM DOCENT Edilberto tiwari [facility] CPT-31350 Level 3 Est. Patient 14:42:54 MUSEUM DOCENT Abhinav Galvan MD [facility] CPT-37775 Level 3 Est. Patient 15:10:02 CDT Janak butcher [facility] CPT-40203 Level 3 Est. Patient 15:20:20 CDT Theo dennis MD [facility] CPT-43714 Level 2 Est. Patient 14:08:57 CDT Kalpesh goins MD [facility]-81785 Level 3 Est. Patient 13:56:19 CDT Abdirahman Rios MD [facility] CPT-25905 Level 3 Est. Patient 13:59:37 CDT Abdirahman Rios MD [facility]-37656 Level 2 Est. Patient 14:44:59 CDT Kalpesh goins MD [facility]-25506 Level 3 Est. Patient 06:06:23 [facility] Level 3 Est. Patient 15:23:54 CDT Abdirahman Rios MD [facility] CPT-38793 Level 3 Est. Patient 15:43:49 CDT Abdirahman Rios MD [facility] CPT-35089 Level 3 Est. Patient 12:46:47 MUSEUM DOCENT Abdirahman Rios MD [facility] CPT-47257 Level 3 Est. Patient 08:13:35 MUSEUM DOCENT Abdirahman Rios MD [facility] CPT-36779 Level 2 Est. Patient 09:36:42 MUSEUM DOCENT Abdirahman Rios MD [facility] CPT-53615 Level 3 Est. Patient 10:56:43 CDT Abdirahman Rios MD [facility] CPT-30792 Level 3 Est. Patient 18:24:52 CDT Abdirahman Rios MD [facility] CPT-24916 Level 3 Est. Patient 13:27:22 CDT Abdirahman Rios MD [facility] Procedures Code Procedure Name Date Entry Date Standard Desc ription CPT-J0696 Rocephin 1000 mg (Ceftriaxone) 17:22:33 MUSEUM DOCENT CPT-25764 Postop F/U Visit 18:41:07 MUSEUM DOCENT CPT-41353 Postop F/U Visit 08:19:08 MUSEUM DOCENT CPT-28674 Immunization Single Admin 16:41:53 CDT 2013 CPT-48075 Fluzone Quadrivalent Intramuscular Suspe nsion 0.5 ML 16:41:53 CDT CPT-OV Office Visit 16:39:18 CDT CPT-OV Office Visit 16:16:36 CDT CPT-OV Office Visit 15:34:48 CDT CPT-48789 Postop F/U Visit 14:50:12 CDT CPT-38023 Postop F/U Visit 14:41:10 CDT CPT-75049 Venipuncture Draw Fee 11:38:04 MUSEUM DOCENT CPT-30763 Postop F/U Visit 19:02:59 MUSEUM DOCENT CPT-49766 Postop F/U Visit 12:04:54 MUSEUM DOCENT CPT-50723 Administration single or combination vac cine inc oral 15:56:43 CDT CPT-72369 Influenza split virus > age 3 15:56:43 CDT CPT-03129 Hand comp min 3V 14:25:19 CDT CPT-57692 Postop F/U Visit 21:40:51 CDT CPT-03563 Postop F/U Visit 10:58:43 CDT CPT-98923 Administration single or combination vac cine inc oral 12:33:54 MUSEUM DOCENT CPT-65077 Influenza Preservative Free split virus >age 3 12:33:54 MUSEUM DOCENT CPT-59676 Administration single or combination vac cine inc oral 09:30:51 CDT CPT-48505 Influenza split virus > age 3 09:30:51 CDT CPT-52924 Postop F/U Visit 15:14:53 CDT CPT-27278 Postop F/U Visit 13:50:14 CDT CPT-37535 Postop F/U Visit 13:34:52 CDT CPT-OV Office Visit 16:55:03 CDT CPT-97583 [place] of cervix w bx ECC 13:32:50 CDT 10/19 CPT-J1885 Toradol 60 mg (Ketorolac) 15:31:59 CDT 2011 CPT-J1885 Toradol 60 mg (Ketorolac) 15:23:54 CDT 2011 CPT-31604 Visit 11:34:37 MUSEUM DOCENT CPT-87842 Visit 10:52:39 MUSEUM DOCENT CPT-16814 Visit 10:12:02 MUSEUM DOCENT CPT-12286 Visit 11:22:43 MUSEUM DOCENT CPT-78928 Visit 11:24:12 MUSEUM DOCENT CPT-69584 Visit 10:47:05 MUSEUM DOCENT CPT-OV Office Visit 10:26:16 MUSEUM DOCENT CPT-OV Office Visit 15:34:31 MUSEUM DOCENT CPT-77219 Visit 10:42:08 MUSEUM DOCENT CPT-82940 Visit 10:52:45 MUSEUM DOCENT CPT-000 Give Appropriate Flu Vaccine 16:56:41 CDT 2 CPT-66854 Administration single or combination vac cine inc oral 10:33:21 CDT CPT-75348 Influenza split virus > age 3 10:33:21 CDT CPT-33134 Visit 13:23:09 CDT CPT-74750 Visit 18:24:52 CDT CPT-22223 Sono OB comp > 14 weeks 12:07:49 CDT 04/07
--- OUTSIDE RECORDS SUMMARY | 2020-01-18 17:32 | XMS REPORT ---
Author Author [facility] Medic al Staff, TOMY Rashid Organization [facility] Address [address], [place] [id number] Phone [phone] Care Team Providers Care Paste Maker Name Role Phone CAROLEE WHITE MD PP [phone] CAROLEE WHITE MD PP [phone] Summary purpose TRANSITION OF CARE AUTO GENERATION Chief Complaint and Reason for Visit Admit Diagnosis 1 CHR INTERSTIT CYSTITIS Problem list No authorized problems tracked for [...] 10 mg-325 mg tablet 1 tablet oral MI N Every 12 Hours Discont Patient recall [...] Code Type Description Date Performed Performing Physician 96.25 ICD9-CM THERAPEUT DISTENT BLADD 09-15-2014 77921 CPT-4 CYSTOSCOPY AND TREATMENT 09-15-2014 Bj LOERA J7120 CPT-4 RINGERS LACTATE INFUSION 09-15-2014 Bj LOERA J2405 CPT-4 ONDANSETRON HCL INJECTION 09-15-2014 DAIMEN LOERA J1885 CPT-4 TORADOL SYR 30MG/ML 09-15-2014 DAMIEN LOERA J3010 CPT-4 FENTANYL CITRATE INJECITON 09-15-2014 DAMIEN LOERA J2250 CPT-4 INJ MIDAZOLAM HYDROCHLORIDE 09-15-2014 DAMIEN LOERA J2704 CPT-4 INJ, PROPOFOL, 10 MG 09-15-2014 DAMIEN LOERA J2250 CPT-4 INJ MIDAZOLAM HYDROCHLORIDE 09-15-2014 DAMIEN LOERA J0690 CPT-4 CEFAZOLIN SODIUM INJECTION 09-15-2014 DAMIEN LOERA J1170 CPT-4 HYDROMORPHONE INJECTION 09-15-2014 SANDRA LOERA 99506 CPT-4 SPECIAL SUPPLIES 09-15-2014 DAMIEN RHODESON 34196 CPT-4 SPECIAL SUPPLIES 09-15-2014 DAMIEN CANTU Functional status Functional Status Finding Observation Time Hearing Prob Loc none [id number]:10 Vision Problems yes :27 Vision Correct Dev glasses 41-61-277282:27 Ambulation Asst Dev none 67-66-307678:10 Range of Motion full 06-23-565419:10 Muscle Strength RUE 5 ROM full resist 09-08-068730:10 Muscle Strength RLE 5 ROM full resist 15-68-506242:10 Muscle Strength LUE 5 ROM full resist 44-82-687221:10 Muscle Strength LLE 5 ROM full resist 28-92-093489:10 Transfers assist x 1 91-46-616149:10 Ambulation in room :10 Balance unsteady :10 Bathing Assistance none 40-97-636979:10 Eating Assistance none 64-18-176130:10 Dressing Assistance none 80-51-616202:10 Toileting Assistance none 60-53-472941:10 Transfer Assistance none 32-47-346626:10 Decline Slf Care/Mob no :10 Phys Cond Stable yes :10 Nutrition normal 66-78-941301:10 Diet regular :10 Oral Cavity moist and intact :10 Teeth none :10 Dental Hygiene good :10 Abdomen Appearance obese 89-91-797410:10 Abdomen soft :10 Bowel Sounds present :10 NG Tube no :10 Feeding Tube none :10 Ramírez no :10 Cont Bladder Irr no :10 Ostomy no :10 Stool normal :37 Urination other (specify) Comment: some leakage :37 Quality sym/unlabored : Cough absent : Secretions no :10 Breath Sounds RUL clear : Breath Sounds RML clear : Breath Sounds RLL clear : Breath Sounds SARA clear : Breath Sounds LLL clear :10 Airway natural [...] Information discontinued :45 IV Site Start Attmpt 1 times :20 IV Site Isael 20 :45 IV Site Appearance WNL :45 IV Site Color clear :45 IV Site Patent yes :45 Dressing Type occlusive :45 Nursing Note pt ambulatory to private veh icle. pt in stable condition. belongings gathered and taken with. discharge paperwork in hand. no questions voiced about home instructions. friend to drive pt home. :10 Cognitive Status Finding Observation Time Learning Ability comprehends well : Neurological no :05 Psychological no :05 Physical no :05 Hearing no :05 Benefits Director Needed no : Sign Language no : Emotional no : Vision yes : [place] no :05 Financial no :05 Vital signs Type Value Date Respiration Rate 18breaths per minute : Pulse 77beats per minute : Oxygen Saturation 97% : BP Systolic 137mmHg :00 BP Diastolic 84mmHg :00 Temperature 96.9F 32-99-569341:10 Height 67inches :30 Weight 230LB :30 Social history Type Value Smoking Status CURRENT EVERY DAY SMOKER Treatment Plan No treatment plan text is available for this visit. Hospital discharge instructions Discharge Date/Time 09/15/14 1010 Accompanied By natalee Carrillo friend Dismissal Condition good Disposition on DC home Valuables yes Valuable Type billfold/purse DC Inst/Educ Give yes Exit Care Educ Given yes Med/Side Effects Rev yes PNE Vac never Flu Vac 04/2014 Tetanus Vac 06/2013 Diet Explained yes Follow up appt already scheduled Follow Up Appt D/T 10/27/14 2729
--- OUTSIDE RECORDS SUMMARY | 2020-01-18 17:33 | XMS REPORT | Clinical Summary ---
Author Author Admin, Jeri Rashid Organization [facility] Address Unknown Phone Unavailable [...] as needed for muscle spasm/pain CYCLOBENZAPRINE HCL [id number] Active Abdirahman Rios MD Active PREDNISONE 20 MG TAB 2 tabs daily for 3 days, 1 t ab daily for 3 days, 1/2 tab daily for 2 days PREDNISONE 01224656769 No Longer Active Abdirahman Rios MD Active KEFLEX 500 MG CAP 1 po qid CEPHALEXIN 516391700 20 No Longer Active Kalpesh Dong MD Active PERCOCET 5-325 MG TAB 1 every 6 hours as needed OXYCODONE-ACETAMINOPHEN 14665667106 No Longer Active Shola MCGILL Active LC-5 LIDOCAINE 5 % CREA apply 1 time daily to affected area 2013 LIDOCAINE (ANORECTAL) 34388824849 No Longer Active Hira muniz TRANSIT DRIVER Active HYDROCODONE-ACETAMINOPHEN 5-325 MG TABS 2 tablets by m outh every 8 hours as needed for pain HYDROCODONE-ACETAMINOPHEN 58397871660 Acti ve Shola MCGILL Active HYDROCODONE-ACETAMINOPHEN 10-325 MG TABS 1 by mouth ev chaka 8 hours as needed for pain HYDROCODONE-ACETAMINOPHEN 43926912652 No Longer Active Jillina Frazell TRANSIT DRIVER Active LORATADINE 10 MG TABS 1 tablet by mouth daily L ORATADINE 10704249776 No Longer Active Jillina Frazell TRANSIT DRIVER Active DIFLUCAN 150 MG TAB 1 qODay x 2 doses FLUCONAZO LE 61072927158 No Longer Active Jillina Frazell TRANSIT DRIVER Active CYCLOBENZAPRINE HCL 10 MG TABS 1/2 - 1 tab PO tid PRN back p ain, muscle spasm CYCLOBENZAPRINE HCL 05563425478 No Longer Active Karen siri Frazell TRANSIT DRIVER Active AUGMENTIN 875-125 MG TAB 1 tab by mouth twice daily with food 20 22/05/07 AMOXICILLIN-POT CLAVULANATE 97553695355 No Longer Active Loida Rios MD Active MOBIC 15 MG TABS 1 tab daily MELOXICAM 871777165 14 No Longer Active Abdirahman Rios MD Active PERCOCET 7.5-325 MG TABS 1 PO tid PRN pain OXYCODONE-ACETAMINOPHEN 47119985645 No Longer Active Abdirahman Rios MD Active LIDODERM 5 % PTCH One patch to painful area RI N. On for 12 hrs, off for 12 hrs. LIDOCAINE 86081173551 No Longer Active Abdirahman Rios MD Active PERCOCET 7.5-325 MG TABS 1 PO q 8 hrs PRN pain OXYCODONE-ACETAMINOPHEN 97653020325 No Longer Active Shola MCGILL Active HYDROCODONE-ACETAMINOPHEN 7.5-325 MG TABS 1 by mouth e very 6 hours as needed for pain HYDROCODONE-ACETAMINOPHEN 59355236498 No Longer Active Good Julian MD Active CLINDAMYCIN HCL 300 MG CAPS 1 po QID x 7 days CLINDAMYCIN HCL 47216505179 No Longer Active Abdirahman Rios MD Activ e BACTRIM DS 800-160 MG TABS 1 po BID x 7 days 5 SULFAMETHOXAZOLE-TRIMETHOPRIM 27858476919 No Longer Active Abdirahman Rios MD Active ENDOCET 10-325 MG TABS 1 q 6 hr prn OXYCODONE-ACETAMINOPHEN 91458580641 No Longer Active Abdirahman Rios MD Active IBUPROFEN 800 MG TABS 1 tid prn IBUPROFEN 668921 12529 No Longer Active Abdirahman Rios MD Active BACTRIM DS 800-160 MG TABS by mouth twice a day 11/05 SULFAMETHOXAZOLE-TRIMETHOPRIM 61895426010 No Longer Active Good Julian MD Active HYDROCODONE-ACETAMINOPHEN 7.5-325 MG TABS 1 four times a day as needed for pain HYDROCODONE-ACETAMINOPHEN 16306019912 No Longer Activ e Good Julian MD Active KEFLEX 500 MG CAP 1 tab po tid CEPHALEXIN 655454 15871 No Longer Active Jillina Frazelabel TRANSIT DRIVER Active IBUPROFEN 800 MG TAB 1 pill three times daily as needed for pain IBUPROFEN 20628873864 No Longer Active Kalpesh Dong MD Active PROMETHAZINE-CODEINE 6.25-10 MG/5ML SYRP 1 tsp every 6 hrs prn c ough PROMETHAZINE-CODEINE 37980039652 No Longer Active Kalpesh Carr Active ALPRAZOLAM 0.5 MG TABS 1 PO bid PRN ALPRAZOLAM 244808 46926 Active Brandie Cardenas MD PhD Active HYDROCODONE-ACETAMINOPHEN 5-325 MG TABS 1 tab by mouth every 6 hours as needed HYDROCODONE-ACETAMINOPHEN 20213987982 No Longer Activ e Shola MCGILL Active CEPHALEXIN 500 MG CAPS 1 PO bid x 7 days CEPHAL EXIN 87424626688 No Longer Active Shola MCGILL Active BACTRIM DS 800-160 MG TAB 1 tab by mouth twice daily 2 TRIMETHOPRIM-SULFAMETHOXAZOLE 23549026181 No Longer Active Kalpesh Dong MD Active HYDROCODONE-ACETAMINOPHEN 5-325 MG TABS 1 PO tid PRN pain 5 HYDROCODONE-ACETAMINOPHEN 00138067204 No Longer Active Abhinav Galvan MD Active IMPLANON 68 MG IMPL IMPLANTED IN LEFT ARM ETONO GESTREL 98760085990 No Longer Active Hira Moser APRN Active AMOXICILLIN 500 MG TABS 2 tabs PO bid x 10 d AM OXICILLIN 80422002762 No Longer Active Kalpesh Dong MD Active LEVAQUIN 500 MG TABS 1 PO q day x 7 days LEVOFL OXACIN 62261600366 No Longer Active Shola MCGILL Active PROAIR HFA 108 (90 BASE) MCG/ACT AERS 2 puff q 4-6 hrs PRN ALBUTEROL SULFATE 18024934484 Active Edilberto Marino DO Active FIORICET 50-325-40 MG TABS 2 PO q 8 hrs PRN FOSTER [id number] Active Shola MCGILL Active AMITRIPTYLINE HCL 25 MG TAB 1 tab by mouth daily 60 minutes before bedtime AMITRIPTYLINE HCL 15749550224 No Longer Active Shola MCGILL Active LORTAB 5 5-500 MG TABS 1/2 to 1 tablet by mouth go ry 6 hours as needed for pain HYDROCODONE-ACETAMINOPHEN 80586154755 No Longer Active Shola MCGILL Active CEPHALEXIN 500 MG TABS Take one by mouth four times daily, morning, noon, early evening and bedtime. CEPHALEXIN 96968787345 No Long er Active Hira Moser TRANSIT DRIVER Active TYLENOL/CODEINE #3 300-30 MG TAB 1-2 po q6hr PRN Pain ACETAMINOPHEN-CODEINE 05288120344 No Longer Active Edilberto Marino DO Active PRISTIQ 50 MG [id number] 1 po qd DESVENLAFAXI NE SUCCINATE 71893574523 No Longer Active Edilberto Marino DO Active PENICILLIN V POTASSIUM 500 MG TAB 1 four times a day 2 PENICILLIN V POTASSIUM 69663674622 No Longer Active Edilberto Marino DO Active DOXYCYCLINE HYCLATE 100 MG CAPS Take one (1) tablet by mouth twice a day DOXYCYCLINE HYCLATE 90754536329 No Longer Active Ronnie Galvan MD Active HYDROCODONE-ACETAMINOPHEN 5-325 MG TABS 1 po q 6hr PRN Pain 2011 HYDROCODONE-ACETAMINOPHEN 69072649394 No Longer Active Jerson Perez RN Active BACTRIM DS 800-160 MG TAB 1 tab by mouth twice daily 2 TRIMETHOPRIM-SULFAMETHOXAZOLE 05849485609 No Longer Active Kalpesh Dong MD Active LORTAB 5 5-500 MG TABS 1/2 to 1 tablet by mouth go ry 4 hours as needed for pain HYDROCODONE-ACETAMINOPHEN 56464053067 No Longer Active Kalpesh Dong MD Active GENERESS FE 0.8-25 MG-MCG CHEW Take one by mouth daily NORETHIN-ETH ESTRADIOL-FE 44932408134 No Longer Active Kalpesh Dong MD Active HYDROCODONE-ACETAMINOPHEN 7.5-500 MG TABS 1-2 every 4 hours as needed HYDROCODONE-ACETAMINOPHEN 07391388633 No Longer Activ e Kalpesh Dong MD Active FERROUS SULFATE 325 (65 FE) MG TABS 1 tablet by mouth twice yung y FERROUS SULFATE 08607251867 No Longer Active Kalpesh Dong MD Active IBUPROFEN 600 MG TAB 1 po q6-8hr PRN IBUPROFEN 21624351712 No Longer Active Kalpesh Dong MD Active SPIRONOLACTONE 25 MG TAB 1 tablet by mouth daily 01/22 SPIRONOLACTONE 40508540214 No Longer Active Kalpesh Dong MD Acti ve HYDROCODONE-ACETAMINOPHEN 7.5-325 MG TABS 1 po QID PRN Pain 2011 HYDROCODONE-ACETAMINOPHEN 77616878654 No Longer Active Kalpesh Dong MD Active CLINDAMYCIN HCL 300 MG CAPS 1 po q6hr x 7 days CLINDAMYCIN HCL 38697594807 No Longer Active Edilberto Marino DO Active PREDNISONE 20 MG TAB 2 tabs daily for 4 days, 1 t ab daily for 4 days, 1/2 tab daily for 4 days PREDNISONE 60084435278 No Longer Active Edilberto Marino DO Active PERCOCET 5-325 MG TABS 1 tablet by mouth every 6 hours as ne eded for pain OXYCODONE-ACETAMINOPHEN 20657765815 No Longer Active Abdirahman Rios MD Active VITAMINS TABS Take one by mouth daily MV & MIN W/FE-FA TABS 64425837484 No Longer Active Abdirahman Rios MD Active LUIS 3-0.02 MG TABS 1 tablet by mouth daily as directed DROSPIRENONE-ETHINYL ESTRADIOL 53334249478 No Longer Active Abdirahman Rios MD Active LORATADINE 10 MG TABS 1 tablet by mouth daily L ORATADINE 37307996498 No Longer Active Kalpesh Dong MD Active HYDROCODONE-ACETAMINOPHEN 5-325 MG TABS 1 po q 6hr PRN Pain 2010 HYDROCODONE-ACETAMINOPHEN 83293224878 No Longer Active Edilberto Marino DO Active BACTRIM DS 800-160 MG TAB 1 tab by mouth twice daily 2 TRIMETHOPRIM-SULFAMETHOXAZOLE 16947251752 No Longer Active Abdirahman Rios MD Active 28-0.8 MG TABS Take one by mouth daily 09/20 VIT-FE FUMARATE-FA 32147450880 No Longer Active Abdirahman Rios MD Active CIPRO 500 MG TAB 1 tablet by mouth twice daily CIPROFLOXACIN HCL 96438003133 No Longer Active Abdirahman Rios MD Active BENADRYL 25 MG CAP 1 po q8hr PRN Congestion DIPHENHYDRAMINE HCL 58996437982 No Longer Active Abdirahman Rios MD Active ZOLOFT 50 MG TAB 1 po qd SERTRALINE HCL 078502 31985 No Longer Active Abdirahman Rios MD Active AMOXICILLIN 875 MG TABS 1 tab by mouth twice daily 201 08/09/13 AMOXICILLIN 56810834916 No Longer Active Abdirahman Rios MD Activ e AMOXICILLIN 875 MG TABS 1 tab by mouth twice daily 201 07/19/27 AMOXICILLIN 81884711784 No Longer Active Abdirahman Rios MD Activ e BACTRIM DS 800-160 MG TAB 2 tab by mouth twice daily 2 TRIMETHOPRIM-SULFAMETHOXAZOLE 03082523899 No Longer Active Abdirahman Rios MD Active KEFLEX 500 MG CAP 1 po tid x 10 days CEPHALEXIN 46715133479 No Longer Active Abdirahman Rios MD Active AMOXICILLIN 875 MG TABS 1 tab by mouth twice daily 201 07/18/07 AMOXICILLIN 66269300673 No Longer Active Abdirahman W Dillow MD Activ e BACTRIM DS 800-160 MG TAB 2 tab by mouth twice daily 2 BACTRIM DS 800-160 MG TAB TRIMETHOPRIM-SULFAMETHOXAZOLE Inactive ZOLOFT 50 MG TAB 1 po qd ZOLOFT 50 MG TAB 3129 41 SERTRALINE HCL Inactive BENADRYL 25 MG CAP 1 po q8hr PRN Congestion BENADRYL 25 MG CAP 4419298 DIPHENHYDRAMINE HCL Inactive 28-0.8 MG TABS Take one by mouth daily 09/20 28-0.8 MG TABS VIT-FE FUMARATE-FA Inactive HYDROCODONE-ACETAMINOPHEN 5-325 MG TABS 1 po q 6hr PRN Pain 2010 HYDROCODONE-ACETAMINOPHEN 5-325 MG TABS 255301 HYDROCODONE-ACETAMINOPHEN Inactive LORATADINE 10 MG TABS 1 tablet by mouth daily LORATADINE 10 MG TABS 724209 LORATADINE Inactive LUIS 3-0.02 MG TABS 1 tablet by mouth daily as directed LUIS 3-0.02 MG TABS DROSPIRENONE-ETHINYL ESTRADIOL Inactive VITAMINS TABS Take one by mouth daily VITAMINS TABS MV & MIN W/FE-FA TABS Inactive PERCOCET 5-325 MG TABS 1 tablet by mouth every 6 hours as ne eded for pain PERCOCET 5-325 MG TABS 3737642 OXYCODONE-ACETAMIN OPHEN Inactive PREDNISONE 20 MG TAB 2 tabs daily for 4 days, 1 t ab daily for 4 days, 1/2 tab daily for 4 days PREDNISONE 20 MG TAB 447288 PREDNISON E Inactive CLINDAMYCIN HCL 300 MG CAPS 1 po q6hr x 7 days CLINDAMYCIN HCL 300 MG CAPS 667345 CLINDAMYCIN HCL Inactive HYDROCODONE-ACETAMINOPHEN 7.5-325 MG TABS 1 po QID PRN Pain 2011 HYDROCODONE-ACETAMINOPHEN 7.5-325 MG TABS 028942 HYDROCODONE-ACETAMINOPHEN Inactive SPIRONOLACTONE 25 MG TAB 1 tablet by mouth daily 01/22 SPIRONOLACTONE 25 MG TAB 574521 SPIRONOLACTONE Inactive IBUPROFEN 600 MG TAB 1 po q6-8hr PRN IBUPROFEN 600 MG TAB 419796 IBUPROFEN Inactive FERROUS SULFATE 325 (65 FE) MG TABS 1 tablet by mouth twice yung y FERROUS SULFATE 325 (65 FE) MG TABS 692528 FERROUS SULF ATE Inactive HYDROCODONE-ACETAMINOPHEN 7.5-500 MG [...] PRN Pain 2011 HYDROCODONE-ACETAMINOPHEN 5-325 MG TABS 722573 HYDROCODONE-ACETAMINOPHEN Inactive DOXYCYCLINE HYCLATE 100 MG CAPS Take one (1) tablet by mouth twice a day DOXYCYCLINE HYCLATE 100 MG CAPS 861569 DOXYCYCLINE HYCLATE Inactive PENICILLIN V POTASSIUM 500 MG TAB 1 four times a day 2 PENICILLIN V POTASSIUM 500 MG TAB 431239 PENICILLIN V POTASSIUM Siri ctive PRISTIQ 50 MG [id number] 1 po qd PRISTIQ 50 MG [id number] DESVENLAFAXINE SUCCINATE Inactive TYLENOL/CODEINE #3 300-30 MG TAB 1-2 po q6hr PRN Pain TYLENOL/CODEINE #3 300-30 MG TAB 358001 ACETAMINOPHEN-CODEINE Inact krishna CEPHALEXIN 500 MG TABS Take one by mouth four times daily, morning, noon, early evening and bedtime. CEPHALEXIN 500 MG TABS 735214 CEPHALEXIN Inactive LORTAB 5 5-500 MG TABS 1/2 to 1 tablet by mouth go ry 6 hours as needed for pain LORTAB 5 5-500 MG TABS HYDROCODONE-A CETAMINOPHEN Inactive AMITRIPTYLINE HCL 25 MG TAB 1 tab by mouth daily 60 minutes before bedtime AMITRIPTYLINE HCL 25 MG TAB 063677 AMITRIPTYLINE HCL Inactive AMOXICILLIN 500 MG TABS 2 tabs PO bid x 10 d 7 AMOXICILLIN 500 MG TABS 015654 AMOXICILLIN Inactive IMPLANON 68 MG IMPL IMPLANTED IN LEFT ARM IMPLANON 68 MG IMPL ETONOGESTREL Inactive HYDROCODONE-ACETAMINOPHEN 5-325 MG TABS 1 PO tid PRN pain 5 HYDROCODONE-ACETAMINOPHEN 5-325 MG TABS 219536 HYDROCODONE-ACETAMIN OPHEN Inactive BACTRIM DS 800-160 MG TAB 1 tab by mouth twice daily 2 BACTRIM DS 800-160 MG TAB TRIMETHOPRIM-SULFAMETHOXAZOLE Inac tive CEPHALEXIN 500 MG CAPS 1 PO bid x 7 days CEPHALEXIN 500 MG CAPS 524701 CEPHALEXIN Inactive HYDROCODONE-ACETAMINOPHEN 5-325 MG TABS 1 tab by mouth every 6 hours as needed HYDROCODONE-ACETAMINOPHEN 5-325 MG TABS 618528 HYDROCODONE-ACETAMINOPHEN Inactive PROMETHAZINE-CODEINE 6.25-10 MG/5ML SYRP 1 tsp every 6 hrs prn c ough PROMETHAZINE-CODEINE 6.25-10 MG/5ML SYRP 847294 PROMETH AZINE-CODEINE Inactive IBUPROFEN 800 MG TAB 1 pill three times daily as needed for pain IBUPROFEN 800 MG TAB IBUPROFEN Inactive KEFLEX 500 MG CAP 1 tab po tid KEFLEX 500 MG CAP 171443 CEPHALEXIN Inactive HYDROCODONE-ACETAMINOPHEN 7.5-325 MG TABS 1 four times a day as needed for pain HYDROCODONE-ACETAMINOPHEN 7.5-325 MG TABS 689698 HYDROCODONE-ACETAMINOPHEN Inactive BACTRIM DS 800-160 MG TABS by mouth twice a day 11/05 BACTRIM DS 800-160 MG TABS SULFAMETHOXAZOLE-TRIMETHOPRIM Inactive IBUPROFEN 800 MG TABS 1 tid prn IBUPROFEN 800 MG TABS 838202 IBUPROFEN Inactive ENDOCET 10-325 MG TABS 1 q 6 hr prn ENDOC ET 10-325 MG TABS 5201908 OXYCODONE-ACETAMINOPHEN Inactive HYDROCODONE-ACETAMINOPHEN 7.5-325 MG TABS 1 by mouth e very 6 hours as needed for pain HYDROCODONE-ACETAMINOPHEN 7.5-325 MG TABS 875200 HYDROCODONE-ACETAMINOPHEN Inactive PERCOCET 7.5-325 MG TABS 1 PO q 8 hrs PRN pain PERCOCET 7.5-325 MG TABS 0705539 OXYCODONE-ACETAMINOPHEN Inactive LIDODERM 5 % PTCH One patch to painful area RI N. On for 12 hrs, off for 12 hrs. LIDODERM 5 % PTCH 0399447 LIDOCAINE Inactiv e PERCOCET 7.5-325 MG TABS 1 PO tid PRN pain PERCOCET 7.5- 325 MG TABS 8559045 OXYCODONE-ACETAMINOPHEN Inactive MOBIC 15 MG TABS 1 tab daily MOBIC 15 MG TABS 15 2695 MELOXICAM Inactive CYCLOBENZAPRINE HCL 10 MG TABS 1/2 - 1 tab PO tid PRN back p ain, muscle spasm CYCLOBENZAPRINE HCL 10 MG TABS 896221 CYCLOBENZA JOSEPH HCL Inactive LORATADINE 10 MG TABS 1 tablet by mouth daily LORATADINE 10 MG TABS 003566 LORATADINE Inactive HYDROCODONE-ACETAMINOPHEN 10-325 MG TABS 1 by mouth ev chaka 8 hours as needed for pain HYDROCODONE-ACETAMINOPHEN 10-325 MG TABS 553765 HYDROCODONE-ACETAMINOPHEN Inactive LC-5 LIDOCAINE 5 % CREA apply 1 time daily to affected area 2013 LC-5 LIDOCAINE 5 % CREA LIDOCAINE (ANORECTAL) In active PERCOCET 5-325 MG TAB 1 every 6 hours as needed PERCOCET 5-325 MG TAB 5896912 OXYCODONE-ACETAMINOPHEN Inactive KEFLEX 500 MG CAP 1 po qid KEFLEX 500 MG CAP 30 9114 CEPHALEXIN Inactive AMOXICILLIN 875 MG TABS 1 tab by mouth twice daily 201 07/18/07 AMOXICILLIN 875 MG TABS 163819 AMOXICILLIN Inactive KEFLEX 500 MG CAP 1 po tid x 10 days KEFLEX 500 MG CAP 090836 CEPHALEXIN Inactive AMOXICILLIN 875 MG TABS 1 tab by mouth twice daily 201 07/19/27 AMOXICILLIN 875 MG TABS 480977 AMOXICILLIN Inactive AMOXICILLIN 875 MG TABS 1 tab by mouth twice daily 201 08/09/13 AMOXICILLIN 875 MG TABS 143013 AMOXICILLIN Inactive CIPRO 500 MG TAB 1 tablet by mouth twice daily CIPRO 500 MG TAB 289888 CIPROFLOXACIN HCL Inactive BACTRIM DS 800-160 MG TAB 1 tab by mouth twice daily 2 BACTRIM DS 800-160 MG TAB TRIMETHOPRIM-SULFAMETHOXAZOLE Inac tive LEVAQUIN 500 MG TABS 1 PO q day x 7 days LEVAQUIN 500 MG TABS 269898 LEVOFLOXACIN Inactive CLINDAMYCIN HCL 300 MG CAPS 1 po QID x 7 days CLINDAMYCIN HCL 300 MG CAPS 477155 CLINDAMYCIN HCL Inactive AUGMENTIN 875-125 MG TAB 1 tab by mouth twice daily with food 20 22/05/07 AUGMENTIN 875-125 MG TAB 217352 AMOXICILLIN-POT CLAVULA [place] Inactive DIFLUCAN 150 MG TAB 1 qODay x 2 doses DIFLUCAN 150 MG TAB 572478 FLUCONAZOLE Inactive PREDNISONE 20 MG TAB 2 tabs daily for 3 days, 1 t ab daily for 3 days, 1/2 tab daily for 2 days PREDNISONE 20 MG TAB 538433 PREDNISON E Inactive Advance Directives Directive Description Start Date PERMISSION TO SHARE Immunizations Vaccine Administration Date Value Standard Alf cription Seasonal influenza vaccine, injectable, containing preservative, for > 3 years old (Afluria, FluLaval, Fluzone, Fluvirin, Fluarix, Agriflu(>= 18 yo)) Fluzone (>3 yrs.) [OPH784] Influenza, seasonal, inject able Seasonal influenza vaccine, injectable, preservative free, for > 3 years old (Afluria, FluLaval, Fluzone, Fluvirin, Fluarix, Agriflu(>= 18 yo)) Fluzone preservative free (>3 yrs.) [[id number]] Influenza, seasonal, injectable, preservative free Seasonal influenza vaccine, injectable, containing preservative, for > 3 years old (Afluria, FluLaval, Fluzone, Fluvirin, Fluarix, Agriflu(>= 18 yo)) Fluzone (>3 yrs.) [AMZ461] Influenza, seasonal, inject able Seasonal influenza vaccine, injectable, containing preservative, for > 3 years old (Afluria, FluLaval, Fluzone, Fluvirin, Fluarix, Agriflu(>= 18 yo)) Fluzone (>3 yrs.) [ZJH157] Influenza, seasonal, inject able dT (Diphtheria and [...] - 3141-9 244 [lb_av] Weigh t Measured Diagnostic Results Date Name Value Unit Range Description Lab Report: Glucose Tolerance 2hr - Chem istry blood glucose, finger stick 91 65-110 Office Visit: low blood sugars - Chemis try cholesterol, target level 200 mg/dL triglyceride, target level 200 mg/dL HDL cholesterol, serum, target level 35 mg/dL LDL target level 100 mg/dL Encounters Code Encounter Date Provider Facility CPT-30206 Level 3 New Patient 15:47:11 SUPERVISOR TRAVEL TRAILER Bj huber MD [facility] CPT-63127 Level 4 Est. Patient 14:37:38 SUPERVISOR TRAVEL TRAILER Abdirahman Rios MD [facility] CPT-93714 Level 2 Est. Patient 13:32:17 SUPERVISOR TRAVEL TRAILER Kalpesh goins MD [facility] CPT-82054 Level 3 Est. Patient 17:32:57 SUPERVISOR TRAVEL TRAILER Edilberto tiwari [facility] CPT-95717 Level 3 Est. Patient 17:22:33 SUPERVISOR TRAVEL TRAILER Edilberto tiwari [facility] CPT-68922 Level 2 Est. Patient 16:57:09 SUPERVISOR TRAVEL TRAILER Kalpesh goins MD [facility] CPT-31336 Level 3 Est. Patient 14:03:08 SUPERVISOR TRAVEL TRAILER Abdirahman Rios MD [facility] CPT-99873 Level 3 Est. Patient 18:12:34 CDT Shola Wright [facility] CPT-68423 Level 3 Est. Patient 19:34:46 CDT Shola Wright [facility] CPT-89006 Level 3 Est. Patient 14:19:37 CDT Abdirahman Rios MD [facility] CPT-77227 Level 3 Est. Patient 14:11:58 CDT Kalpesh goins MD [facility] CPT-39932 Level 3 Est. Patient 16:50:00 CDT Michelle BRADFORDP [facility] CPT-18163 Level 3 Est. Patient 17:11:32 SUPERVISOR TRAVEL TRAILER Brandie bates MD PhD [facility]-81809 Level 3 Est. Patient 16:31:47 SUPERVISOR TRAVEL TRAILER Shola Wright [facility] CPT-65375 Level 3 Est. Patient 17:51:10 SUPERVISOR TRAVEL TRAILER Abhinav Galvan MD [facility]-26892 Level 4 Est. Patient 12:54:56 SUPERVISOR TRAVEL TRAILER Kalpesh goins MD [facility]-95105 Level 4 Est. Patient 12:53:56 SUPERVISOR TRAVEL TRAILER Kalpesh goins MD [facility]-96865 Level 3 Est. Patient 17:56:58 CDT Shola Wright [facility] CPT-25102 Level 3 Est. Patient 14:26:20 CDT Janak Maurizioamira butcher [facility] CPT-75662 Level 3 Est. Patient 09:38:41 CDT Shola Houghsabi [facility] CPT-78189 Level 3 Est. Patient 14:45:26 CDT Edilberto tiwari [facility]-00358 Level 3 Est. Patient 10:51:33 CD[facility] Est. Patient 11:57:55 SUPERVISOR TRAVEL TRAILER Shola Wright [facility] CPT-46641 Level 3 Est. Patient 09:53:33 SUPERVISOR TRAVEL TRAILER Edilberto tiwari [facility] CPT-67936 Level 3 Est. Patient 14:42:54 SUPERVISOR TRAVEL TRAILER Abhinav Galvan MD [facility]-88836 Level 3 Est. Patient 15:10:02 CDT Janak butcher [facility] CPT-49887 Level 3 Est. Patient 15:20:20 CDT Theo dennis MD [facility] CPT-93073 Level 2 Est. Patient 14:08:57 CDT Kalpesh goins MD [facility] CPT-57778 Level 3 Est. Patient 13:56:19 CDT Abdirahman Rios MD [facility] CPT-82917 Level 3 Est. Patient 13:59:37 CDT Abdirahman Rios MD [facility] CPT-17821 Level 2 Est. Patient 14:44:59 CDT Kalpesh goins MD [facility] CPT-24140 Level 3 Est. Patient 06:06:23 CDT Edilberto tiwari DO [facility] CPT-59328 Level 3 Est. Patient 15:23:54 CDT Abdirahman Rios MD [facility] CPT-61682 Level 3 Est. Patient 15:43:49 CDT Abdirahman Rios MD [facility] CPT-08035 Level 3 Est. Patient 12:46:47 SUPERVISOR TRAVEL TRAILER Abdirahman Rios MD [facility] CPT-82126 Level 3 Est. Patient 08:13:35 SUPERVISOR TRAVEL TRAILER Abdirahman Rios MD [facility] CPT-62662 Level 2 Est. Patient 09:36:42 SUPERVISOR TRAVEL TRAILER Abdirahman Rios MD [facility] CPT-02511 Level 3 Est. Patient 10:56:43 CDT Abdirahman Rios MD [facility] CPT-60002 Level 3 Est. Patient 18:24:52 CDT Abdirahman Rios MD [facility] CPT-29061 Level 3 Est. Patient 13:27:22 CDT Abdirahman Rios MD [facility] Procedures Code Procedure Name Date Entry Date Standard Desc ription CPT-40968 Postop F/U Visit 11:29:00 SUPERVISOR TRAVEL TRAILER CPT-J0696 Rocephin 1000 mg (Ceftriaxone) 17:22:33 SUPERVISOR TRAVEL TRAILER CPT-03668 Postop F/U Visit 18:41:07 SUPERVISOR TRAVEL TRAILER CPT-26406 Postop F/U Visit 08:19:08 SUPERVISOR TRAVEL TRAILER CPT-20042 Immunization Single Admin 16:41:53 CDT 2013 CPT-87012 Fluzone Quadrivalent Intramuscular Suspe nsion 0.5 ML 16:41:53 CDT CPT-OV Office Visit 16:39:18 CDT CPT-OV Office Visit 16:16:36 CDT CPT-OV Office Visit 15:34:48 CDT CPT-77277 Postop F/U Visit 14:50:12 CDT CPT-09730 Postop F/U Visit 14:41:10 CDT CPT-31383 Venipuncture Draw Fee 11:38:04 SUPERVISOR TRAVEL TRAILER CPT-53677 Postop F/U Visit 19:02:59 SUPERVISOR TRAVEL TRAILER CPT-14742 Postop F/U Visit 12:04:54 SUPERVISOR TRAVEL TRAILER CPT-38255 Administration single or combination vac cine inc oral 15:56:43 CDT CPT-44931 Influenza split virus > age 3 15:56:43 CDT CPT-12994 Hand comp min 3V 14:25:19 CDT CPT-49782 Postop F/U Visit 21:40:51 CDT CPT-55781 Postop F/U Visit 10:58:43 CDT CPT-42807 Administration single or combination vac cine inc oral 12:33:54 SUPERVISOR TRAVEL TRAILER CPT-14185 Influenza Preservative Free split virus >age 3 12:33:54 SUPERVISOR TRAVEL TRAILER CPT-72677 Administration single or combination vac cine inc oral 09:30:51 CDT CPT-94917 Influenza split virus > age 3 09:30:51 CDT CPT-79399 Postop F/U Visit 15:14:53 CDT CPT-85715 Postop F/U Visit 13:50:14 CDT CPT-54393 Postop F/U Visit 13:34:52 CDT CPT-OV Office Visit 16:55:03 CDT CPT-18417 [place] cervix w bx ECC 13:32:50 CDT 10/19 CPT-J1885 Toradol 60 mg (Ketorolac) 15:31:59 CDT 2011 CPT-J1885 Toradol 60 mg (Ketorolac) 15:23:54 CDT 2011 CPT-84688 Visit 11:34:37 [employer] CPT-57394 Visit 10:52:39 [employer]PER[employer] CPT-26259 Visit 10:12:02 [employer]PER[employer]OR [employer] CPT-39747 Visit 11:22:43 [employer]PER[employer]OR [employer] CPT-57708 Visit 11:24:12 [employer]PER[employer] CPT-90646 Visit 10:47:05 [employer]PER[employer]OR [employer] CPT-OV Office Visit 10:26:16 [employer]PER[employer]OR [employer] CPT-OV Office Visit 15:34:31 [employer]PER[employer] CPT-47853 Visit 10:42:08 [employer]PER[employer] CPT-61723 Visit 10:52:45 [employer]PER[employer]OR [employer] CPT-000 Give Appropriate Flu Vaccine 16:56:41 CDT 2 CPT-57316 Administration single or combination vac cine inc oral 10:33:21 CDT CPT-64978 Influenza split virus > age 3 10:33:21 CDT CPT-26445 Visit 13:23:09 CDT CPT-14824 Visit 18:24:52 CDT CPT-64796 Sono OB comp > 14 weeks 12:07:49 CDT 04/07
--- OUTSIDE RECORDS SUMMARY | 2020-01-18 17:33 | XMS REPORT ---
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
--- OUTSIDE RECORDS SUMMARY | 2020-01-18 17:33 | XMS REPORT ---
Author Author Jeri PRADO [facility] Address [address] [place] [address] Care Team Providers Care Residential Care Officer Name Role Phone CADE PRADO Unavailable PROBLEMS Unknown Problems ALLERGIES Unknown Allergies SOCIAL HISTORY No smoking Hx information available PLAN OF CARE VITAL SIGNS MEDICATIONS Medication Instructions Dosage Frequency Start Date End Date Duration S tatus Zofran 4 MG Orally twice a day PRN 1 tablet Mar, Active RESULTS No Results PROCEDURES No Known procedures IMMUNIZATIONS No Known Immunizations
--- OUTSIDE RECORDS SUMMARY | 2020-01-18 17:33 | XMS REPORT ---
Author Author Jeri EMANUEL [facility] Address [address] [place] [address] Care Team Providers Care Hydrogeology Professor Name Role Phone JALEEL EMANUEL Unavailable PROBLEMS Type Condition ICD9-CM Code [id number] Code Onset Dates Condition S tatus SNOMED Code Problem Pain at surgical incision R20.8 Acti ve 05111454 Problem Interstitial cystitis N30.10 Active 760237502 Problem Ingrown left big toenail L60.0 Activ e 945512977 Problem Other chronic pain G89.29 Active 8 7205462 Problem Encounter for immunization Z23 Act krishna [id number] Problem Pilonidal cyst L05.91 Active 83824 008 Problem Ulcer L98.499 Active 611685865 ALLERGIES Unknown Allergies SOCIAL HISTORY No smoking Hx information available PLAN OF CARE VITAL SIGNS MEDICATIONS Medication Instructions Dosage Frequency Start Date End Date Duration S tatus Hydrocodone-Acetaminophen 7.5-325 MG Orally every 4 hrs as needed 1 tablet Jul, Active RESULTS No Results PROCEDURES No Known procedures IMMUNIZATIONS No Known Immunizations
--- OUTSIDE RECORDS SUMMARY | 2020-01-18 17:33 | XMS REPORT ---
Author Author Jeri EMANUEL Organization [facility] Address [address] [place] [address] Care Team Providers Care Infrastructure Technician Name Role Phone JALEEL EMANUEL Unavailable PROBLEMS Type Condition ICD9-CM Code [id number] Code Onset Dates Condition S tatus SNOMED Code Problem Pain at surgical incision R20.8 Acti ve [id number] Problem Interstitial cystitis N30.10 Active 180846538 Problem Ingrown left big toenail L60.0 Activ e 362917182 Problem Other chronic pain G89.29 Active 8 8723352 Problem Encounter for immunization Z23 Act krishna 811950541 Problem Pilonidal cyst L05.91 Active 75252 008 Problem Ulcer L98.499 Active 724773413 ALLERGIES Substance Reaction Event Type Date Status [...] Week Reason: VITAL SIGNS Height 63 in 2016-07-19 Weight 217.8 lbs 2016-07-19 Temperature 97.8 degrees Fahrenheit 2016-07-19 Heart Rate 96 bpm 2016-07-19 Respiratory Rate 18 2016-07-19 BMI 38.58 kg/m2 2016-07-19 Blood pressure systolic 136 mmHg 2016-07-19 Blood pressure diastolic 98 mmHg 2016-07-19 MEDICATIONS Medication Instructions Dosage Frequency Start Date End Date Duration S tatus Lisinopril 20 MG Orally Once a day 1 tablet 24h Active Hydrocodone-Acetaminophen 7.5-325 MG Orally every 6 hrs 1 tablet as needed 6h Jul, Active RESULTS No Results PROCEDURES Procedure Date Ordered Related Diagnosis Body Site Office Visit, Est Pt., Level 3 Jul 19, 2016 IMMUNIZATIONS No Known Immunizations
--- OUTSIDE RECORDS SUMMARY | 2020-01-18 17:34 | XMS REPORT | Continuity of Care Document ---
Demographics Preferred Language Unknown Marital Status Unknown Catholic Affiliation Unknown Race Unknown Ethnic Group Unknown Author Organization Unknown Address Unknown Phone Unavailable Allergies Active Description Code Type Severity Reaction Onset Reported/Identified Relationship to Patient Clinical Status Yes BACTRIM [id number] BRANDNAME N/A N/A Yes KETOROLAC [id number] DRUG N/A N/A Yes LATEX [id number] ENVIRONMENTAL N/A N/A Yes PENICILLIN [id number] BRANDNAME N/A N/A Yes TRAMADOL [id number] DRUG N/A N/A Yes VANCOMYCIN [id number] DRUG N/A N/A Yes ZITHROMAX [id number] BRANDNAME N/A N/A Yes azithromycin 3635 Drug Allergy N/A itching~redmess Yes Bactrim 5086 Drug Allergy Moderate Shortness of Breath Yes ketorolac 4812 Drug Allergy N/A N/A Confirmed or V erified Yes Latex LATEX Environmental Allergy N/A N/A Yes sulfamethoxazole 2827 Drug Allerg y N/A N/A Confirmed or Verified Yes Toradol 6196 Drug Allergy N/A N/A Yes tramadol 4180 Drug Allergy N/A N/A Confirmed or V erified Yes vancomycin 4866 Drug Allergy Moderate Hives Yes vancomycin 4866 Drug Allergy N/A N/A Confirmed but inactive Yes azithromycin Drug N/A N/A Yes Bactrim Drug N/A N/A Yes Latex Drug N/A N/A Yes penicillin Drug N/A N/A Yes Toradol Drug N/A N/A Yes traMADol Drug N/A N/A Yes azithromycin NKMA N/A [id number] 2015 Yes Bactrim NKMA N/A [id number] 2015 Yes Latex NKMA N/A [id number] 2015 Yes Toradol NKMA N/A [id number] 2015 Yes Bactrim Drug Allergy Unknown N/A 08/30/2016 Yes latex Drug Allergy U nknown N/A 08/30/2016 Yes TORADOL Drug Allergy Unknown N/A 08/30/2016 Yes traMADol Drug Allergy Unknown N/A 08/30/2016 Yes Z-PACK Drug Allergy Unknown N/A 08/30/2016 Yes traMADol NKMA N/A N/A 09/04/2016 Medications Medication Packaging Start Date St op Date Route Dosage Sig oxyCODONE-acetaminophen(Perc ocet 5/325 oral tablet) 1 tabs 2015 2015 Oral 1 tabs, Oral, q6hr, PRN: Roxi n HYDROcodone 7.5 mg-acetaminophen 325 mg ta blet Ampule 08/30/2016 7.5-325 mg take 1 (one) Tablet by Oral route daily lisinopril 10 mg tablet Ampu le 08/30/2016 10 mg take 1 (one) Tablet by Oral route daily HYDROcodone-acetaminophen(No rco 7.5 mg-325 mg oral tablet) 1 tabs 09/04/2016 Oral 1 tabs, Oral, q6hr, PRN: Roxi n Severe (7-10), 0 Refill(s) midazolam(Versed) 1 mL 09/04/2016 09/04/2016 IV Push 1 mg 1 mg = 1 mL, IV Push, q5min, PRN: Sedation fentaNYL(Sublimaze) 1 mL 09/04/2016 09/04/2016 IV Push 50 mcg 50 mcg = 1 mL, IV Push, q5min, PRN: Sedation HYDROmorphone(Dilaudid) 1 mL 09/04/2016 09/04/2016 IV Push 1 mg 1 mg = 1 mL, IV Push, q5min, PRN: Sedation Sodium Chloride 0.9%(Sodium Chloride 0.9% 500 mL) 500 mL 09/04/2016 09/04/2016 IV KVO, IV HYDROcodone-acetaminophen(HY DROcodone-acetaminophen 5 mg-325 mg oral tablet) 1 tabs 09/04/2016 09/04/2016 Oral 1 tabs, Oral, q4hr, PRN: Pain Moderate (4-6) ondansetron(Zofran) 2 mL 09/04/2016 09/04/2016 IV Push 4 mg 4 mg = 2 mL, IV Push, q4hr, PRN: Nausea Problems Date Dx Coded Attending Type Code Diagnosis Diagnosed By 08/08/2014 Lilly 528.5 DISE ASES OF LIPS 10/06/2014 CAROLEE WHITE 724.5 BACKACHE NOS 10/06/2014 CAROLEE WHITE V57.1 PHYSICAL THERAPY NEC 10/16/2014 DILHOMAR, CAROLEE Thao D 724.5 BACKACHE NOS 10/16/2014 DILCAROLEE GRAF D V57.1 PHYSICAL THERAPY NEC 10/16/2014 DILCAROLEE GRAF W D 724.5 BACKACHE NOS 10/16/2014 DILHOMAR, CAROLEE W D V57.1 PHYSICAL THERAPY NEC 10/16/2014 DILCAROLEE GRAF W D 724.5 BACKACHE NOS 10/16/2014 DILHOMAR, CAROLEE W D V57.1 PHYSICAL THERAPY NEC 10/21/2014 DILHOMAR, CAROLEE W D 724.5 BACKACHE NOS 10/21/2014 DILHOMAR, CAROLEE W D V57.1 PHYSICAL THERAPY NEC 10/21/2014 DILCAROLEE GRAF D 724.5 BACKACHE NOS 10/21/2014 DILCAROLEE GRAF V57.1 PHYSICAL THERAPY NEC 10/21/2014 DILCAROLEE GRAF 724.5 BACKACHE NOS 10/21/2014 DILCAROLEE GRAF V57.1 PHYSICAL THERAPY NEC 10/21/2014 CORTEZ HOLLAND 569.3 RECTAL ANAL HEMORRHAGE 10/21/2014 CORTEZ HOLLAND V45.89 POST SURGICAL STATUS NEC 10/22/2014 CAROLEE WHITE 724.5 BACKACHE NOS 10/22/2014 CAROLEE WHITE V57.1 PHYSICAL THERAPY NEC 10/22/2014 CAROLEE WHITE 724.5 BACKACHE NOS 10/22/2014 CAROLEE WHITE V57.1 PHYSICAL THERAPY NEC 10/27/2014 SILVANA MERAZ 922.32 BUTTOCK CONTUSION 10/27/2014 SILVANA MERAZ 923.01 CONTUSION SCAPUL REGION 10/27/2014 SILVANA MERAZ 959.19 OTHER INJURY OF OTHER SI 10/27/2014 SILVANA MERAZ E884.4 FALL FROM BED 12/19/2014 SILVANA MERAZ 346.90 MIGRAINE NOS W/O SM 12/19/2014 SILVANA MERAZ 784.0 HEADACHE 12/21/2014 CORTEZ HOLLAND 346.90 MIGRAINE NOS W/O SM 12/21/2014 CORTEZ HOLLAND 784.0 HEADACHE 01/05/2015 CATY GARZA 705.83 HIDRADENITIS 01/15/2015 CATY GARZA 705.83 HIDRADENITIS 01/15/2015 CATY GARZA 705.83 HIDRADENITIS 01/15/2015 GREGCATY KAY 705.83 HIDRADENITIS 01/19/2015 GREGCATY KAY 705.83 HIDRADENITIS 01/19/2015 GREGCATY KAY 705.83 HIDRADENITIS 02/05/2015 GREGCATY KAY 705.83 HIDRADENITIS 02/06/2015 GREGCATY KAY 705.83 HIDRADENITIS 02/19/2015 RADHA AN 704.8 HAIR DISEASES NEC 02/19/2015 RADHA AN 709.9 SKIN DISORDER NOS 02/19/2015 RADHA NA 787.02 NAUSEA ALONE 02/19/2015 RADHA AN V12.04 HX MRSA 02/26/2015 RACHLE NUÑEZ 724. 2 LUMBAGO 03/02/2015 RADHA AN 998.32 DISRUPT EXTERNAL OP WND 03/02/2015 RADHA AN 998.32 DISRUPT EXTERNAL OP WND 03/02/2015 RADHA AN E879.8 ABN REACT-PROCEDURE NEC 03/25/2015 ЮЛИЯ FANG 719.4 5 JOINT PAIN-PELVIS 03/25/2015 ЮЛИЯ FANG 784.0 HEADACHE 03/25/2015 ЮЛИЯ FANG 843.9 SPRAIN HIP THIGH NOS 09/16/2015 Francis Melgar Reason L73. 2 Hidradenitis suppurativa 09/16/2015 Francis Melgar Final Z86.1 4 Personal history of Methicillin resistant Staphylococcus aureus infection 09/16/2015 Francis Melgar Final Z98.8 9 Other specified postprocedural states 09/01/2016 Ammar,, Sascha Final M79.66 1 Pain in right lower leg 09/01/2016 Ammar,, Sascha Reason M79.8 9 Other specified soft tissue disorders 09/06/2016 Ammar,, Sascha Final F17.21 0 Nicotine dependence, cigarettes, uncomplicated 09/06/2016 Ammar,, Sascha Final M79.60 4 Pain in right leg 09/06/2016 Ammar,, Sascha Reason M79.8 9 Other specified soft tissue disorders 09/06/2016 Ammar,, Sascha Final Z79.89 1 custodial (current) use of opiate analgesic 09/22/2016 Ammar, Sascha D E66.01 Morbid (severe) obesity due to excess calories Ammar, Sascha D 09/22/2016 Ammar, Sascha D F17.210 Nicotine dependence, cigarettes, uncomplicated Ammar, Sascha D 09/22/2016 Ammar, Sascha D I10 Essential (primary) hypertension Ammar, Sascha D 09/22/2016 Ammar, Sascha D M79.89 Other specified soft tissue disorders Ammar, Sascha D 09/25/2016 Ammar, Sascha D E66.01 Morbid (severe) obesity due to excess calories Ammar, Sascha D 09/25/2016 Ammar, Sascha D F17.210 Nicotine dependence, cigarettes, uncomplicated Ammar, Sascha D 09/25/2016 Ammar, Sascha D I10 Essential (primary) hypertension Ammar, Sascha D 09/25/2016 Ammar, Sascha D M79.89 Other specified soft tissue disorders Ammar, Sascha D 10/05/2016 Ammar, Sascha D M79.604 Pain in right leg Ammar, Sascha D 10/06/2016 Ammar, Sascha D M79.604 Pain in right leg Ammar, Sascha D 12/22/2018 ЮЛИЯ CHENG Final F17.210 Nicotine dependence, cigarettes, uncomplicated 12/22/2018 ЮЛИЯ CHENG Final M54.41 Lumbago with sciatica, right side 12/22/2018 ЮЛИЯ CHENG Reason For Vis it M54.5 Low back pain 01/29/2019 SILVANA MERAZ Reason For Visit L73.2 Hidradenitis suppurativa 03/11/2019 ЮЛИЯ CHENG Reason For Vis it R10.32 Left lower quadrant pain 03/11/2019 ЮЛИЯ CHENG Final Z86.14 Personal history of Methicillin resistan t Staphylococcus aureus infection 03/11/2019 ЮЛИЯ CHENG Final Z87.2 Personal history of diseases of the skin and subcutane ous tissue 03/24/2019 ЮЛИЯ CHENG Final G56.01 Carpal tunnel syndrome, right upper limb 03/24/2019 ЮЛИЯ CHENG Reason For Vis it M79.641 Pain in right hand 04/16/2019 ЮЛИЯ CHENG Reason For Vis it L03.311 Cellulitis of abdominal wall 04/16/2019 ЮЛИЯ CHENG Final Z86.14 Personal history of Methicillin resistan t Staphylococcus aureus infection 04/16/2019 ЮЛИЯ CHENG Final Z87.2 Personal history of diseases of the skin and subcutane ous tissue 04/20/2019 SILVANA MERAZ Final F 17.210 Nicotine dependence, cigarettes, uncomplicated 04/20/2019 SILVANA MERAZ Reason For Visit L02.214 Cutaneous abscess of groin 04/29/2019 ЮЛИЯ CHENG Final B95.62 Methicillin resistant Staphylococcus aur eus infection as the cause of diseases classified elsewhere 04/29/2019 ЮЛИЯ CHENG Reason For Vis it L03.311 Cellulitis of abdominal wall 05/26/2019 Rosi Gatica Reason For Visit M79.641 Pain in right hand 06/06/2019 SILVANA MERAZ Reason For Visit L73.2 Hidradenitis suppurativa 06/09/2019 ЮЛИЯ CHENG Reason For Vis it L73.2 Hidradenitis suppurativa 07/01/2019 Mounika Cedeno Final F17.210 Nicotine dependence, cigarettes, uncomplicated 07/01/2019 Mounika Cedeno Final N30.10 Interstitial cystitis (chronic) without hematuria 07/01/2019 Mounika Cedeno Reason For Visi t R35.0 Frequency of micturition 07/01/2019 Mounika Cedeno Final Z86.14 Personal history of Methicillin resistan t Staphylococcus aureus infection 07/25/2019 Jim Manrique Reason For Visit T81.9XXA Unspecified complication of procedure, i nitial encounter 08/21/2019 RADHA EATON Final B95.62 Methicillin resistant Staphylococcus aureus infection as the cause of diseases classified elsewhere 08/21/2019 RADHA EATON Reason For Visit L02.211 Cutaneous abscess of abdominal wall 08/21/2019 RADHA EATON Final L03.311 Cellulitis of abdominal wall 08/25/2019 KUESER, SILVANA W Reason For Visit L73.2 Hidradenitis suppurativa 08/28/2019 RADHA EATON Final B95.62 Methicillin resistant Staphylococcus aureus infection as the cause of diseases classified elsewhere 08/28/2019 RADHA EATON Reason For Visit L03.311 Cellulitis of abdominal wall 11/15/2019 Pam Marks Reason For Visi t L02.211 Cutaneous abscess of abdominal wall 11/24/2019 ЮЛИЯ CHENG Final M65.331 Trigger finger, right middle finger 11/24/2019 ЮЛИЯ CHENG Reason For Vis it M79.644 Pain in right finger(s) 11/30/2019 Pam Marks Final 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 11/30/2019 Pam Marks Reason For Visi t R52 Pain, unspecified 12/13/2019 Pam Marks Final L03.311 Cellulitis of abdominal wall 12/13/2019 Pam Marks Reason For Visi t L73.2 Hidradenitis suppurativa 01/14/2020 Angeles Mccormick Final L76.82 Other postprocedural complications of skin and subcuta neous tissue 01/14/2020 Angeles Mccormick Reason For Visi t R10.9 Unspecified abdominal pain Procedures Code Description [place] [address] ROUT INE VENIPUNCTURE 08/08/2014 86288 ASSA Y OF VANCOMYCIN 08/08/2014 21787 ASSA Y OF CREATININE 08/08/2014 96167 ASSA Y OF UREA NITROGEN 08/08/2014 J2550 PROM ETHAZIEN 25MG/ML 08/08/2014 J3370 VANC OMYCIN HCL INJECTION 08/08/2014 J7040 NORM AL SALINE SOLUTION INFUS 08/08/2014 80284 [facility] ANICAL TRACTION THERAPY 10/06/2014 98789 ELEC TRIC STIMULATION THERAPY 10/06/2014 51414 [facility] V[facility] 10/21/2014 12043 X-RA Y EXAM OF TAILBONE 10/27/2014 68390 [facility] VISIT 10/27/2014 98790 [facility] VISIT 10/27/[address] H EAD/BRAIN W/O DYE 12/19/2014 99461 HYDR ATE IV INFUSION, ADD-ON 12/19/2014 49768 THER /PROPH/DIAG INJ, IV PUSH 12/19/2014 07482 TX/P RO/DX INJ NEW DRUG ADDON 12/19/2014 63663 [facility] V[facility]IT 12/19/2014 09913 [facility] VIS[facility] 12/19/2014 J1885 MOI DOL SYR 30MG/ML 12/19/2014 J2550 PROM ETHAZIEN 25MG/ML 12/19/2014 J7030 NORM AL SALINE SOLUTION INFUS 12/19/2014 48920 THER /PROPH/DIAG INJ, IV PUSH 12/21/2014 52922 TX/P RO/DX INJ NEW DRUG ADDON 12/21/2014 56754 [facility] VISIT 12/21/2014 J2270 MORP TAL SULFATE INJECTION 12/21/2014 J2405 ONDA NSETRON HCL INJECTION 12/21/2014 78365 ROUT INE VENIPUNCTURE 01/05/2015 J7040 NORM AL SALINE SOLUTION INFUS 01/05/2015 62718 THER /PROPH/DIAG INJ, SC/IM 02/19/2015 45034 [facility] VISIT 02/19/2015 J1885 MOI DOL SYR 30MG/ML 02/19/2015 03264 X-RA Y EXAM OF LOWER SPINE 02/26/2015 50320 X-RA Y EXAM OF PELVIS 02/26/2015 70387 [facility] VISIT 03/02/2015 20628 [facility] VISIT 03/02/2015 77998 THER /PROPH/DIAG INJ, SC/IM 03/25/2015 25256 [facility] VISIT 03/25/2015 89425 [facility] VISIT 03/25/2015 J1885 MOI DOL SYR 30MG/ML 03/25/2015 J2360 ORPH ENADRINE INJECTION 03/25/2015 86681 X-RA Y EXAM OF HAND 04/19/2015 59269 [facility] VISIT 04/19/2015 39859 [facility] VISIT 04/19/2015 73589 [facility] VISIT 05/17/2015 69690 CLOS URE OF SPLIT WOUND 06/06/2015 43122 [facility] VISIT 06/06/2015 17429 THER /PROPH/DIAG INJ, SC/IM 07/31/2015 73712 [facility] VISIT 07/31/2015 80584 [facility] VISIT 07/31/2015 J2270 MORP TAL SULFATE INJECTION 07/31/2015 78054 [facility] VISIT 08/02/2015 67460 ROUT INE VENIPUNCTURE 08/22/2015 55522 COMP REHEN METABOLIC PANEL 08/22/2015 13532 COMP LETE CBC W/AUTO DIFF WBC 08/22/2015 22704 BLOO D CULTURE FOR BACTERIA 08/22/2015 87919 THER /PROPH/DIAG INJ, IV PUSH 08/22/2015 16159 TX/P RO/DX INJ NEW DRUG ADDON 08/22/2015 97070 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 08/22/2015 06562 [facility] VISIT 08/22/2015 J1170 HYDR OMORPHONE INJECTION 08/22/2015 J3370 VANC OMYCIN HCL INJECTION 08/22/2015 J7040 NORM AL SALINE SOLUTION INFUS 08/22/2015 09372 [facility] VISIT 08/23/2015 54495 [facility] VISIT 08/23/2015 63013 ROUT INE VENIPUNCTURE 08/26/2015 55535 ASSA Y OF VANCOMYCIN 08/26/2015 J7040 NORM AL SALINE SOLUTION INFUS 08/26/2015 04607 THER /PROPH/DIAG INJ, SC/IM 09/12/2015 44555 [facility] VISIT 09/12/2015 37600 [facility] VISIT 09/12/2015 J1170 HYDR OMORPHONE INJECTION 09/12/2015 J2405 ONDA NSETRON HCL INJECTION 09/12/2015 64459 CULT R BACTERIA, EXCEPT BLOOD 09/13/2015 45306 SMEA R, GRAM STAIN 09/13/2015 08926 ROUT INE VENIPUNCTURE 09/15/2015 03943 META BOLIC PANEL TOTAL CA 09/15/2015 71290 COMP REHEN METABOLIC PANEL 09/15/2015 48244 URIN ALYSIS, AUTO W/SCOPE 09/15/2015 09765 GLYC OSYLATED HEMOGLOBIN TEST 09/15/2015 13929 BL S MEAR W/DIFF WBC COUNT 09/15/2015 41833 COMP LETE CBC, AUTOMATED 09/15/2015 02953 CULT R BACTERIA, EXCEPT BLOOD 09/15/2015 51753 CULT URE AEROBIC IDENTIFY 09/15/2015 J7040 NORM AL SALINE SOLUTION INFUS 09/15/2015 66295 THER /PROPH/DIAG IV INF, INIT 09/30/2015 J0696 CEFT RIAXONE SODM 250MG INJ 09/30/2015 J3370 VANC OMYCIN HCL INJECTION 09/30/2015 J7040 NORM AL SALINE SOLUTION INFUS 09/30/2015 45698 THER /PROPH/DIAG IV INF, INIT 10/01/2015 J1200 DIPH ENHYDRAMINE HCL INJECTIO 10/01/2015 J3370 VANC OMYCIN HCL INJECTION 10/01/2015 J7040 NORM AL SALINE SOLUTION INFUS 10/01/2015 74983 CULT URE, BACTERIA, OTHER 10/04/2015 97231 SMEA R, GRAM STAIN 10/04/2015 42102 THER /PROPH/DIAG IV INF, INIT 10/04/2015 J1200 DIPH ENHYDRAMINE HCL INJECTIO 10/04/2015 J3370 VANC OMYCIN HCL INJECTION 10/04/2015 J7040 NORM AL SALINE SOLUTION INFUS 10/04/2015 06364 THER /PROPH/DIAG IV INF, INIT 10/07/2015 J1200 DIPH ENHYDRAMINE HCL INJECTIO 10/07/2015 J3370 VANC OMYCIN HCL INJECTION 10/07/2015 J7040 NORM AL SALINE SOLUTION INFUS 10/07/2015 91406 [facility] VISIT 10/18/2015 40891 RU OSUNA OF SKIN ABSCESS 10/30/2015 91496 CULT R BACTERIA, EXCEPT BLOOD 10/30/2015 45432 SMEA R, GRAM STAIN 10/30/2015 49516 [facility] VISIT 10/30/2015 45834 EXC TR-EXT B9+RICARDA 0.5 < CM 11/02/2015 61123 SIERRA SPEEDY, SWEAT GLAND LESION 11/02/2015 29143 SIERRA SPEEDY, SWEAT GLAND LESION 11/02/2015 15629 SPEC IAL SUPPLIES 11/02/2015 J0690 CEFA ZOLIN SODIUM INJECTION 11/02/2015 J1170 HYDR OMORPHONE INJECTION 11/02/2015 J2250 INJ MIDAZOLAM HYDROCHLORIDE 11/02/2015 J2270 MORP TAL SULFATE INJECTION 11/02/2015 J2405 ONDA NSETRON HCL INJECTION 11/02/2015 J2704 INJ, PROPOFOL, 10 MG 11/02/2015 J3010 FENT ANYL CITRATE INJECITON 11/02/2015 J7120 RING ERS LACTATE INFUSION 11/02/2015 85997 [facility] VISIT 11/06/2015 99234 CULT R BACTERIA, EXCEPT BLOOD 11/12/2015 96961 CULT URE AEROBIC IDENTIFY 11/12/2015 57862 MICR OBE SUSCEPTIBLE, JANET 11/12/2015 07471 SMEA R, GRAM STAIN 11/12/2015 02145 [facility] VISIT 11/12/2015 52106 [facility] VISIT 11/12/2015 31989 [facility] VISIT 11/14/2015 23003 [facility] VISIT 11/14/2015 49450 ROUT INE VENIPUNCTURE 12/15/2015 85706 META BOLIC PANEL TOTAL CA 12/15/2015 74354 COMP LETE CBC W/AUTO DIFF WBC 12/15/2015 61649 THER /PROPH/DIAG IV INF ADDON 12/15/2015 05208 TX/P RO/DX INJ NEW DRUG ADDON 12/15/2015 73707 [facility] VIS[facility] 12/15/2015 74626 [facility] VIS[facility] 12/15/2015 J1200 DIPH ENHYDRAMINE HCL INJECTIO 12/15/2015 J2405 ONDA NSETRON HCL INJECTION 12/15/2015 J3010 FENT ANYL CITRATE INJECITON 12/15/2015 J3370 VANC OMYCIN HCL INJECTION 12/15/2015 J7040 NORM AL SALINE SOLUTION INFUS 12/15/2015 32746 X-RA Y EXAM OF KNEE, 3 12/22/2015 14735 THER /PROPH/DIAG INJ, IV PUSH 12/22/2015 22507 [facility] VISIT 12/22/2015 94335 [facility] VISIT 12/22/2015 J3010 FENT ANYL CITRATE INJECITON 12/22/2015 10708 ROUT INE VENIPUNCTURE 12/22/2015 72537 ASSA Y OF VANCOMYCIN 12/22/2015 J1200 DIPH ENHYDRAMINE HCL INJECTIO 12/22/2015 J7040 NORM AL SALINE SOLUTION INFUS 12/22/2015 45313 ROUT INE VENIPUNCTURE 12/26/2015 17565 COMP LETE CBC W/AUTO DIFF WBC 12/26/2015 06517 FIBR IN DEGRADATION, QUANT 12/26/2015 49148 RBC SED RATE, NONAUTOMATED 12/26/2015 41345 EXTR EMITY STUDY 12/26/2015 99945 THER /PROPH/DIAG INJ, SC/IM 12/26/2015 64497 [facility] VISIT 12/26/2015 J0696 CEFT RIAXONE SODM 250MG INJ 12/26/2015 J3010 FENT ANYL CITRATE INJECITON 12/26/2015 17947 ROUT INE VENIPUNCTURE 12/31/2015 83775 COMP REHEN METABOLIC PANEL 12/31/2015 66529 COMP LETE CBC W/AUTO DIFF WBC 12/31/2015 44520 C-RE ACTIVE PROTEIN 12/31/2015 09717 [facility] VISIT 12/31/2015 48597 [facility] VISIT 12/31/2015 05498 [facility] VISIT 01/12/2016 35917 [facility] VISIT 01/29/2016 14157 [facility] VISIT 02/04/2016 39804 Offi ce or other outpatient visit for the evaluation and management of a new patient, which requires Sascha Quevedo 09/22/2016 05954 Dupl ex scan of extremity veins including responses to compression and other maneuvers; unilateral or AmSascha harp 10/05/2016 95227 Offi ce or other outpatient visit for the evaluation and management of a new patient, which requires Sascha Quevedo 10/10/2016 18207 Dupl ex scan of extremity veins including responses to compression and other maneuvers; unilateral or AmSascha harp 10/23/2016 Results Test Result Range CBC WITH DIFF - 10/25/13 00:00 BASO% 0.3 % 0-2 EOS% 3.3 % 0-7.0 HCT 40.2 % 36.9-47.0 HGB 13.9 G/DL 12.0-16.0 LYMPH% 29.3 % 20-40 MCH 27.9 PG 27-31 MCHC 34.6 G/DL 33-37 MCV 80.7 FL 81-99 MONO% 6.2 % 0-10.0 MPV 9.6 FL 7.3-10.4 NEUTRO% 60.9 % 40-70 PLT 338 10^3u 130-400 RBC 5.0 10^6u 4.2-5.4 RDW 12.9 % 11.5-15.5 WBC 10.5 10^3u 4.8-10.8 NEUTRO# 6.4 10^3u 1.5-7.5 LYMPH# 3.1 10^3u 0.9-4.0 MONO# 0.7 10^3u 0-0.8 EOS# 0.4 10^3u 0-0.6 BASO# 0.0 10^3u 0-0.1 CMP - 10/25/13 00:00 ALB 3.8 G/DL 3.5-5 ALP 99 IU/L 32-92 ALT 43 IU/L 12-65 AST 18 IU/L 10-42 BCR 10.8 10-20 BUN 8 MG/DL 7-18 CA 9.0 MG/DL 8.4-10.2 CL 101 MEQ/L 98-107 CO2 29.1 MEQ/L 22-28 CREA 0.74 MG/DL 0.6-1.0 EGFR 97 eGFR >= 60 GLU 78 MG/DL 70-105 K 3.5 MEQ/L 3.5-5.1 NA 141 MEQ/L 134-145 OSMSC 278.5 MOSML 280-300 TBIL 0.2 MG/DL 0.1-1.0 TP 7.6 G/DL 6.0-8.3 Albumin/Globulin Ratio 1.0 0-8 Anion Gap 10.9 8-16 UA - 10/26/13 00:00 PH 6.0 4.5-8.0 SG >= 1.030 1.003-1.035 UABILI NEGATIVE UABLD NEGATIVE UACOLOR YEL UAGLU NEGATIVE UAKET NEGATIVE UALEUK NEGATIVE UANIT NEGATIVE UAURO 0.2 0-0.2 CLARITY HAZY PROTEIN NEGATIVE UA WBC R05 UA RBC R05 SQUAMOUS EPITHELIAL CELLS 1+ BACTERIA 2+ CBC WITH DIFF - 10/26/13 00:00 BASO% 0.3 % 0-2 EOS% 3.5 % 0-7.0 HCT 38.2 % 36.9-47.0 HGB 13.0 G/DL 12.0-16.0 LYMPH% 37.2 % 20-40 MCH 27.7 PG 27-31 MCHC 34.0 G/DL 33-37 MCV 81.3 FL 81-99 MONO% 8.2 % 0-10.0 MPV 9.6 FL 7.3-10.4 NEUTRO% 50.8 % 40-70 PLT 292 10^3u 130-400 RBC 4.7 10^6u 4.2-5.4 RDW 12.9 % 11.5-15.5 WBC 9.2 10^3u 4.8-10.8 NEUTRO# 4.7 10^3u 1.5-7.5 LYMPH# 3.4 10^3u 0.9-4.0 MONO# 0.8 10^3u 0-0.8 EOS# 0.3 10^3u 0-0.6 BASO# 0.0 10^3u 0-0.1 VANCOT - 10/27/13 00:00 VANCOT 4.7 UG/ML 10-22 CBC WITH DIFF - 10/29/13 00:00 BASO% 0.3 % 0-2 EOS% 3.9 % 0-7.0 HCT 40.4 % 36.9-47.0 HGB 14.1 G/DL 12.0-16.0 LYMPH% 25.1 % 20-40 MCH 28.0 PG 27-31 MCHC 34.9 G/DL 33-37 MCV 80.2 FL 81-99 MONO% 7.1 % 0-10.0 MPV 9.5 FL 7.3-10.4 NEUTRO% 63.6 % 40-70 PLT 327 10^3u 130-400 RBC 5.0 10^6u 4.2-5.4 RDW 12.9 % 11.5-15.5 WBC 11.2 10^3u 4.8-10.8 NEUTRO# 7.1 10^3u 1.5-7.5 LYMPH# 2.8 10^3u 0.9-4.0 MONO# 0.8 10^3u 0-0.8 EOS# 0.4 10^3u 0-0.6 BASO# 0.0 10^3u 0-0.1 CMP - 10/29/13 00:00 ALB 3.8 G/DL 3.5-5 ALP 95 IU/L 32-92 ALT 39 IU/L 12-65 AST 21 IU/L 10-42 BCR 9.5 10-20 BUN 8 MG/DL 7-18 CA 8.8 MG/DL 8.4-10.2 CL 103 MEQ/L 98-107 CO2 28.0 MEQ/L 22-28 CREA 0.84 MG/DL 0.6-1.0 EGFR 84 eGFR >= 60 GLU 78 MG/DL 70-105 K 3.8 MEQ/L 3.5-5.1 NA 140 MEQ/L 134-145 OSMSC 276.6 MOSML 280-300 TBIL 0.2 MG/DL 0.1-1.0 TP 7.6 G/DL 6.0-8.3 Albumin/Globulin Ratio 1.0 0-8 Anion Gap 9.0 8-16 UA - 10/30/13 00:00 PH 6.0 4.5-8.0 SG 1.025 1.003-1.035 UABILI NEGATIVE UABLD NEGATIVE UACOLOR YEL UAGLU NEGATIVE UAKET NEGATIVE UALEUK NEGATIVE UANIT NEGATIVE UAURO 0.2 0-0.2 CLARITY CL PROTEIN NEGATIVE UA WBC R05 UA RBC R05 SQUAMOUS EPITHELIAL CELLS FEW BACTERIA OCC VANCOT - 11/01/13 00:00 VANCOT 4.3 UG/ML 10- UA - 02/05/14 00:00 PH 6.0 4.5-8.0 SG 1.024 1.003-1.035 UABILI NEGATIVE UABLD NEGATIVE UACOLOR YEL UAGLU NEGATIVE UAKET NEGATIVE UALEUK NEGATIVE UANIT NEGATIVE UAURO 0.2 0-0.2 CLARITY CLD PROTEIN NEGATIVE UA WBC R05 UA RBC R05 SQUAMOUS EPITHELIAL CELLS 2+ BACTERIA 1+ AMORPHOUS CRYSTALS 2+ CBC WITH DIFF - 02/05/14 00:00 BASO% 0.3 % 0-2 EOS% 1.2 % 0-7.0 HCT 42.5 % 36.9-47.0 HGB 14.2 G/DL 12.0-16.0 LYMPH% 27.8 % 20-40 MCH 28.3 PG 27-31 MCHC 33.4 G/DL 33-37 MCV 84.7 FL 81-99 MONO% 6.4 % 0-10.0 MPV 9.7 FL 7.3-10.4 NEUTRO% 64.3 % 40-70 PLT 284 10^3u 130-400 RBC 5.0 10^6u 4.2-5.4 RDW 12.9 % 11.5-15.5 WBC 11.8 10^3u 4.8-10.8 NEUTRO# 7.6 10^3u 1.5-7.5 LYMPH# 3.3 10^3u 0.9-4.0 MONO# 0.8 10^3u 0-0.8 EOS# 0.1 10^3u 0-0.6 BASO# 0.0 10^3u 0-0.1 CMP - 02/05/14 00:00 ALB 3.8 G/DL 3.5-5 ALP 85 IU/L 32-92 ALT 64 IU/L 12-65 AST 31 IU/L 10-42 BCR 9.9 10-20 BUN 7 MG/DL 7-18 CA 9.2 MG/DL 8.4-10.2 CL 101 MEQ/L 98-107 CO2 28.2 MEQ/L 22-28 CREA 0.71 MG/DL 0.6-1.0 EGFR 102 eGFR >= 60 GLU 92 MG/DL 70-105 K 3.8 MEQ/L 3.5-5.1 NA 138 MEQ/L 134-145 OSMSC 273.3 MOSML 280-300 TBIL 0.2 MG/DL 0.1-1.0 TP 7.7 G/DL 6.0-8.3 Albumin/Globulin Ratio 1.0 0-8 Anion Gap 8.8 8-16 [place]ET [place] - 02/05/14 00:00 [place] NOCTY NENA - 02/05/14 00:00 NENA NOYEA CHLAMYDIA GC DNA - 02/05/14 00:00 [id number] NOT DETECTED NOT DETECTED CHLGCU2 NOT DETECTED NOT DETECTED NOTES: SEE NOTE VANCOT - 06/11/14 00:00 VANCOT 5.3 UG/ML 10 CREAS - 06/11/14 00:00 CREA 0.87 MG/DL 0.6-1.0 EGFR 81 eGFR >= 60 VANCOT - 06/12/14 00:00 VANCOT 6.2 UG/ML 10- VANCOT - 06/14/14 00:00 VANCOT 7.6 UG/ML 10 ANAEROBIC CULT - 06/26/14 00:00 ANAEROBIC CULTURE SEE NOTE VANCOT - 08/15/14 00:00 VANCOT 6.8 UG/ML 10 BUN - 12/17/14 00:00 BUN 5 MG/DL 7-18 CREAS - 12/17/14 00:00 CREA 0.69 MG/DL 0.6-1.0 EGFR 105 eGFR >= 60 VANCOT - 12/18/14 00:00 VANCOT 2.8 UG/ML 04-29 VANCOT - 12/20/14 00:00 VANCOT 3.6 UG/ML 04-29 VANCOT - 12/21/14 00:00 VANCOT 6.2 UG/ML 04-29 UA - 03/14/15 00:00 PH 6.0 4.5-8.0 SG 1.020 1.003-1.035 UABILI NEGATIVE UABLD NEGATIVE UACOLOR YEL UAGLU NEGATIVE UAKET NEGATIVE UALEUK NEGATIVE UANIT NEGATIVE UAURO 0.2 0-0.2 CLARITY HAZY PROTEIN NEGATIVE UA WBC R510 UA RBC R05 SQUAMOUS EPITHELIAL CELLS 2+ BACTERIA 3+ CBC WITH DIFF - 08/21/15 00:00 BASO% 0.5 % 0-2 EOS% 1.4 % 0-7.0 HCT 44.4 % 36.9-47.0 HGB 15.0 G/DL 12.0-16.0 LYMPH% 24.7 % 20-40 MCH 29.0 PG 27-31 MCHC 33.8 G/DL 33-37 MCV 85.7 FL 81-99 MONO% 6.0 % 0-10.0 MPV 9.1 FL 7.3-10.4 NEUTRO% 66.9 % 40-70 PLT 297 10^3u 130-400 RBC 5.2 10^6u 4.2-5.4 RDW 12.1 % 11.5-15.5 WBC 11.0 10^3u 4.8-10.8 NEUTRO# 7.4 10^3u 1.5-7.5 LYMPH# 2.7 10^3u 0.9-4.0 MONO# 0.7 10^3u 0-0.8 EOS# 0.2 10^3u 0-0.6 BASO# 0.1 10^3u 0-0.1 IMM GRANULOCYTE % 0.5 % IMM GRANULOCYTE # 0.1 10^3u 0-5 CMP - 08/21/15 00:00 ALB 3.5 G/DL 3.5-5 ALP 67 IU/L 25-72 ALT 29 IU/L 12-65 AST 11 IU/L 10-42 BCR 8.2 10-20 BUN 5 MG/DL 7-18 CA 8.9 MG/DL 8.4-10.2 CL 99 MEQ/L 98-107 CO2 28.5 MEQ/L 22-28 CREA 0.61 MG/DL 0.6-1.0 EGFR 121 eGFR >= 60 GLU 88 MG/DL 70-105 K 4.0 MEQ/L 3.5-5.1 NA 134 MEQ/L 134-145 OSMSC 264.9 MOSML 280-300 TBIL 0.2 MG/DL 0.1-1.0 TP 7.3 G/DL 6.0-8.3 Albumin/Globulin Ratio 0.9 0-8 Anion Gap 6.5 8- VANCOT - 08/22/15 00:00 VANCOT 1.0 UG/ML 04-29 VANCOT - 08/23/15 00:00 VANCOT 6.1 UG/ML 04-29 VANCOT - 08/25/15 00:00 VANCOT 5.3 UG/ML 04-29 HA1C - 09/13/15 00:00 HA1C 5.0 % 4.5-6.2 CMP - 09/13/15 00:00 ALB 3.7 G/DL 3.5-5 ALP 67 IU/L 25-72 ALT 40 IU/L 12-65 AST 16 IU/L 10-42 BCR 12.3 10-20 BUN 7 MG/DL 7-18 CA 8.7 MG/DL 8.4-10.2 CL 104 MEQ/L 98-107 CO2 28.4 MEQ/L 22-28 CREA 0.57 MG/DL 0.6-1.0 EGFR 129 eGFR >= 60 GLU 99 MG/DL 70-105 K 3.4 MEQ/L 3.5-5.1 NA 138 MEQ/L 134-145 OSMSC 273.7 MOSML 280-300 TBIL 0.2 MG/DL 0.1-1.0 TP 7.3 G/DL 6.0-8.3 Albumin/Globulin Ratio 1.0 0-8 Anion Gap 5.6 8-16 CBC - 09/13/15 00:00 HCT 44.3 % 36.9-47.0 HGB 14.8 G/DL 12.0-16.0 MCH 28.7 PG 27-31 MCHC 33.4 G/DL 33-37 MCV 85.9 FL 81-99 MPV 9.2 FL 7.3-10.4 PLT 281 10^3u 130-400 RBC 5.2 10^6u 4.2-5.4 RDW 12.3 % 11.5-15.5 WBC 10.1 10^3u 4.8-10.8 DIFFERENTIAL, MANUAL - 09/13/15 00:00 BANDS 2.0 % 0-5 LYMPH 21.0 % 20-40 MONO 2.0 % 0-10 SEGS 75.0 % 40-70 UA - 09/14/15 00:00 PH 6.5 4.5-8.0 SG 1.020 1.003-1.035 UABILI NEGATIVE UABLD NEGATIVE UACOLOR YEL UAGLU NEGATIVE UAKET NEGATIVE UALEUK NEGATIVE UANIT NEGATIVE UAURO 0.2 0-0.2 UCX NO CLARITY CL PROTEIN NEGATIVE UA WBC NOWBC UA RBC R05 SQUAMOUS EPITHELIAL CELLS FEW BACTERIA 1+ CBC - 09/15/15 00:00 HCT 40.6 % 36.9-47.0 HGB 13.6 G/DL 12.0-16.0 MCH 28.5 PG 27-31 MCHC 33.5 G/DL 33-37 MCV 85.1 FL 81-99 MPV 9.3 FL 7.3-10.4 PLT 244 10^3u 130-400 RBC 4.8 10^6u 4.2-5.4 RDW 12.1 % 11.5-15.5 WBC 7.4 10^3u 4.8-10.8 BMP - 09/15/15 00:00 BCR 7.3 10-20 BUN 4 MG/DL 7-18 CA 8.0 MG/DL 8.4-10.2 CL 104 MEQ/L 98-107 CO2 25.1 MEQ/L 22-28 CREA 0.55 MG/DL 0.6-1.0 EGFR 135 eGFR >= 60 GLU 96 MG/DL 70-105 K 3.8 MEQ/L 3.5-5.1 NA 138 MEQ/L 134-145 OSMSC 272.4 MOSML 280-300 Anion Gap 8.9 8-16 CBC WITH DIFF - 09/20/15 00:00 BANDS 6.0 % 0-5 BASO 2.0 % 0-2 EOS 1.0 % 0-7 HCT 42.2 % 36.9-47.0 HGB 14.7 G/DL 12.0-16.0 LYMPH 11.0 % 20-40 MCH 29.1 PG 27-31 MCHC 34.8 G/DL 33-37 MCV 83.4 FL 81-99 MONO 8.0 % 0-10 MPV 9.1 FL 7.3-10.4 PLT 317 10^3u 130-400 RBC 5.1 10^6u 4.2-5.4 RDW 12.9 % 11.5-15.5 WBC 9.5 10^3u 4.8-10.8 SEGS 72.0 % 40-70 CMP - 09/20/15 00:00 ALB 3.6 G/DL 3.5-5 ALP 59 IU/L 25-72 ALT 42 IU/L 12-65 AST 23 IU/L 10-42 BCR 9.6 10-20 BUN 5 MG/DL 7-18 CA 8.1 MG/DL 8.4-10.2 CL 104 MEQ/L 98-107 CO2 23.5 MEQ/L 22-28 CREA 0.52 MG/DL 0.6-1.0 EGFR 144 eGFR >= 60 GLU 97 MG/DL 70-105 K 4.1 MEQ/L 3.5-5.1 NA 138 MEQ/L 134-145 OSMSC 272.9 MOSML 280-300 TBIL 0.2 MG/DL 0.1-1.0 TP 7.3 G/DL 6.0-8.3 Albumin/Globulin Ratio 1.0 0-8 Anion Gap 10.5 8-16 UA - 09/20/15 00:00 PH 7.5 4.5-8.0 SG 1.020 1.003-1.035 UABILI NEGATIVE UABLD NEGATIVE UACOLOR YEL UAGLU NEGATIVE UAKET NEGATIVE UALEUK NEGATIVE UANIT NEGATIVE UAURO 0.2 0-0.2 UCX YES CLARITY CL PROTEIN NEGATIVE UA WBC NOWBC UA RBC NORBC SQUAMOUS EPITHELIAL CELLS 4+ BACTERIA RARE BMP - 09/21/15 00:00 BCR 9.8 10-20 BUN 6 MG/DL 7-18 CA 7.8 MG/DL 8.4-10.2 CL 107 MEQ/L 98-107 CO2 23.3 MEQ/L 22-28 CREA 0.61 MG/DL 0.6-1.0 EGFR 120 eGFR >= 60 GLU 139 MG/DL 70-105 K 3.8 MEQ/L 3.5-5.1 NA 140 MEQ/L 134-145 OSMSC 279.3 MOSML 280-300 Anion Gap 9.7 8-16 CBC - 09/21/15 00:00 HCT 41.7 % 36.9-47.0 HGB 13.8 G/DL 12.0-16.0 MCH 28.4 PG 27-31 MCHC 33.1 G/DL 33-37 MCV 85.8 FL 81-99 MPV 9.0 FL 7.3-10.4 PLT 317 10^3u 130-400 RBC 4.9 10^6u 4.2-5.4 RDW 13.0 % 11.5-15.5 WBC 8.0 10^3u 4.8-10.8 DIFFERENTIAL, MANUAL - 09/21/15 00:00 BANDS 1.0 % 0-5 BASO 1.0 % 0-2 EOS 6.0 % 0-7 LYMPH 37.0 % 20-40 MONO 9.0 % 0-10 SEGS 42.0 % 40-70 Atypical Lymphs 4.0 % 0-5 CBC WITH DIFF - 09/22/15 00:00 EOS 2.0 % 0-7 HCT 41.7 % 36.9-47.0 HGB 13.3 G/DL 12.0-16.0 LYMPH 47.0 % 20-40 MCH 28.2 PG 27-31 MCHC 31.9 G/DL 33-37 MCV 88.5 FL 81-99 MONO 4.0 % 0-10 MPV 9.2 FL 7.3-10.4 PLT 294 10^3u 130-400 RBC 4.7 10^6u 4.2-5.4 RDW 12.3 % 11.5-15.5 WBC 6.1 10^3u 4.8-10.8 SEGS 40.0 % 40-70 Atypical Lymphs 7.0 % 0-5 VANCOT - 09/22/15 00:00 VANCOT 3.5 UG/ML 10-22 MONOSP - 09/22/15 00:00 MONOSP N Negative BMP - 09/23/15 00:00 BCR 6.9 10-20 BUN 4 MG/DL 7-18 CA 7.9 MG/DL 8.4-10.2 CL 105 MEQ/L 98-107 CO2 25.5 MEQ/L 22-28 CREA 0.58 MG/DL 0.6-1.0 EGFR 127 eGFR >= 60 GLU 87 MG/DL 70-105 K 4.0 MEQ/L 3.5-5.1 NA 138 MEQ/L 134-145 OSMSC 271.9 MOSML 280-300 Anion Gap 7.5 8-16 CBC WITH DIFF - 09/23/15 00:00 BANDS 3.0 % 0-5 HCT 41.8 % 36.9-47.0 HGB 13.7 G/DL 12.0-16.0 LYMPH 27.0 % 20-40 MCH 28.2 PG 27-31 MCHC 32.8 G/DL 33-37 MCV 86.0 FL 81-99 MONO 2.0 % 0-10 MPV 9.0 FL 7.3-10.4 PLT 271 10^3u 130-400 RBC 4.9 10^6u 4.2-5.4 RDW 12.0 % 11.5-15.5 WBC 9.1 10^3u 4.8-10.8 SEGS 68.0 % 40-70 VANCOT - 09/23/15 00:00 VANCOT 6.0 UG/ML 10-22 CBC WITH DIFF - 12/15/15 00:00 BASO% 0.3 % 0-2 EOS% 0.8 % 0-7.0 HCT 46.5 % 36.9-47.0 HGB 15.9 G/DL 12.0-16.0 LYMPH% 17.2 % 20-40 MCH 29.0 PG 27-31 MCHC 34.2 G/DL 33-37 MCV 84.7 FL 81-99 MONO% 5.0 % 0-10.0 MPV 9.3 FL 7.3-10.4 NEUTRO% 76.3 % 40-70 PLT 315 10^3u 130-400 RBC 5.5 10^6u 4.2-5.4 RDW 12.8 % 11.5-15.5 WBC 15.2 10^3u 4.8-10.8 NEUTRO# 11.6 10^3u 1.5-7.5 LYMPH# 2.6 10^3u 0.9-4.0 MONO# 0.8 10^3u 0-0.8 EOS# 0.1 10^3u 0-0.6 BASO# 0.1 10^3u 0-0.1 IMM GRANULOCYTE % 0.4 % IMM GRANULOCYTE # 0.1 10^3u 0-5 BMP - 12/15/15 00:00 BCR 12.5 10-20 BUN 7 MG/DL 7-18 CA 9.0 MG/DL 8.4-10.2 CL 103 MEQ/L 98-107 CO2 23.2 MEQ/L 22-28 CREA 0.56 MG/DL 0.6-1.0 EGFR 132 eGFR >= 60 GLU 93 MG/DL 70-105 K 4.0 MEQ/L 3.5-5.1 NA 137 MEQ/L 134-145 OSMSC 271.5 MOSML 280-300 Anion Gap 10.8 8- VANCOT - 12/16/15 00:00 VANCOT 5.3 UG/ML 10 VANCOT - 12/17/15 00:00 VANCOT 5.2 UG/ML 10 VANCOT - 12/20/15 00:00 VANCOT 8.3 UG/ML 10- CBC WITH DIFF - 12/30/15 00:00 BASO% 0.1 % 0-2 EOS% 1.0 % 0-7.0 HCT 47.1 % 36.9-47.0 HGB 16.0 G/DL 12.0-16.0 LYMPH% 20.9 % 20-40 MCH 29.4 PG 27-31 MCHC 34.0 G/DL 33-37 MCV 86.4 FL 81-99 MONO% 6.8 % 0-10.0 MPV 9.0 FL 7.3-10.4 NEUTRO% 70.5 % 40-70 PLT 369 10^3u 130-400 RBC 5.5 10^6u 4.2-5.4 RDW 13.1 % 11.5-15.5 WBC 17.8 10^3u 4.8-10.8 NEUTRO# 12.5 10^3u 1.5-7.5 LYMPH# 3.7 10^3u 0.9-4.0 MONO# 1.2 10^3u 0-0.8 EOS# 0.2 10^3u 0-0.6 BASO# 0.0 10^3u 0-0.1 IMM GRANULOCYTE % 0.7 % IMM GRANULOCYTE # 0.1 10^3u 0-5 CMP - 12/30/15 00:00 ALB 4.0 G/DL 3.5-5 ALP 62 IU/L 25-72 ALT 69 IU/L 12-65 AST 20 IU/L 10-42 BCR 18.5 10-20 BUN 12 MG/DL 7-18 CA 8.8 MG/DL 8.4-10.2 CL 101 MEQ/L 98-107 CO2 30.9 MEQ/L 22-28 CREA 0.65 MG/DL 0.6-1.0 EGFR 111 eGFR >= 60 GLU 75 MG/DL 70-105 K 3.9 MEQ/L 3.5-5.1 NA 141 MEQ/L 134-145 OSMSC 279.7 MOSML 280-300 TBIL 0.2 MG/DL 0.1-1.0 TP 7.9 G/DL 6.0-8.3 Albumin/Globulin Ratio 1.0 0-8 Anion Gap 9.1 8-16 CRP - 12/30/15 00:00 CRP < 0.2 MG/DL 0-1 CBC With Platelet and Differential - 11:10 Absolute Basophils 0.02 10*3/uL 0.00-0.2 0 Absolute Eosinophils 0.07 10*3/uL 0.00-0 .50 Absolute Lymphocytes 1.73 10*3/uL 0.80-3 .30 Absolute Monocytes 0.54 10*3/uL 0.30-1.0 0 Absolute Neutrophils 6.90 10*3/uL 1.90-7 .00 Basophils 0 % 0-2 Eosinophils 1 % 0-4 HCT 40.7 % 37.0-47.0 HGB 13.9 g/dL 12.0-16.0 Immature Granulocytes 0.2 % 0.0-1.0 Lymphocytes 19 % 20-46 MCH 29.1 pg 27.0-32.0 MCHC 34.2 g/dL 32.0-36.0 MCV 85.3 fL 82.0-99.0 Monocytes 6 % 4-11 MPV 9.5 fL 9.4-12.4 Neutrophils 74 % 51-75 Nucleated RBC Automated 0.0 /100 WBC Platelet Count 263 K/uL 150-400 RBC 4.77 10*6/uL 4.00-5.20 RDW 12.7 % 11.5-14.5 WBC 9.3 K/uL 4.8-10.8 PTT/PT (INR) - 09/04/16 11:10 INR 1.1 NA 0.9-1.2 Basic Metabolic Panel (BMP) - 09/04/16 1 1:10 Anion Gap 10 NA 3-20 BUN 5 mg/dL 4-20 Calcium 9.3 mg/dL 8.6-10.0 Chloride 104 mEq/L 99-109 CO2 25 mEq/L 22-32 Creatinine 0.56 mg/dL 0.44-1.03 Glucose 88 mg/dL 70-100 Potassium 3.9 mEq/L 3.6-5.1 Sodium 139 mEq/L 136-144 eGFR - 09/04/16 11:10 eGFR >60 NA >60 CYTOCHECK COVID-19 - 01/08/20 08:37 [id number] NOT DETECTED Not Detecte d PATHOLOGY ORDER - 01/09/20 09:18 PATHOLOGY ORDER N/A NRG Radiology Report from [id number] on 09/04 14:33:00 Reason For ExamLower Extremity SwellingR EPORTINDICATION: Right leg swelling, CT study demonstrating possible early venousfilling. Exam is performed to evaluate for AV fistula or AV malformation.PROCEDURE: The procedure was performed using maximal sterile barrier technique.Xylocaine was used for local anesthesia. 18- gauge needle was used to access theleft common femoral artery. A guidewire was placed and over the wire, a 5French sheath inserted. Through the sheath, a 4 Thai pigtail catheter wasplaced and advanced to the abdominal aorta. AP and bilateral oblique pelvicangiography was performed. Catheter was advanced over the bifurcation to theright external iliac artery for right leg run off.FINDINGS:The distal aorta, common iliac arteries, internal iliac arteries, and externaliliac arteries are patent and without stenosis or dissection or occlusion. Thecommon femoral arteries and femoral bifurcations and profunda femoris arteriesare patent. The patient has a somewhat high bifurcation on the l eft side. TheSFA origins are patent on both sides. The right SFA is patent and withoutstenosis. The popliteal artery is patent and without stenosis. Thetibioperoneal trunk, anterior tibial artery, and posterior tibial artery andperoneal artery are patent and appear unremarkable. There is no early venousfilling or AVM.The catheter was then removed and hemostasis was obtained with a Starclosedevice. Patient tolerated the procedure well.Note that moderate IV sedation was given for the procedure with intravenousVersed and fentanyl. There was continuous physiologic monitoring by theradiology nurse. The patient was under sedation for a total of 30 minutes.IMPRESSION:Negative right leg angiography. No evidence of stenosis or occlusion. Noevidence of AV fistula or AV malformation.Tech Comments: IV Contrast Name: VISIPAQUE 320Dictated on workstation:[id number] Line PRELIMINARY DICTATED BY: JOSE MANUEL ECHEVARRIA MDDICTATED DT/TM: 09/04/2016 2:01 Encounters ACCT No. Visit Date/Time Discharge Status Pt. Type Provider Facility Loc./Unit Complaint [id number] 01/07/2020 16:06:05 Document Registration [id number] 01/05/2020 16:16:35 Document Registration [id number] 07/14/2019 13:25:05 Document Registration [id number] 05/01/2019 08:50:47 Document Registration [id number] 04/14/2019 02:43:27 Document Registration [id number] 11/01/2018 14:02:52 Document Registration [id number] 07/17/2018 00:03:53 Document Registration [id number] 07/05/2018 01:21:33 Document Registration [id number] 05/28/2018 01:29:05 Document Registration [id number] 05/22/2018 15:31:01 Document Registration [id number] 03/13/2018 01:26:44 Document Registration [id number] 03/08/2018 13:40:22 Document Registration [id number] 02/15/2018 01:03:03 Document Registration [id number] 01/13/2020 22:16:29 0 00:41:00 DIS Emergency Angeles Mccormick [facility] ED er visit [id number] 01/05/2020 14:43:47 0 15:43:00 DIS Emergency Pam Marks [facility] ED ED Visit [id number] 12/12/2019 23:08:10 0 01:00:00 DIS Emergency Pam Marks [facility] ED ED Visit [id number] 12/02/2019 11:06:32 0 12:10:00 DIS Emergency Rosi Gatica [facility] ED ED Visit [id number] 11/30/2019 22:25:59 0 23:15:00 DIS Emergency Pam Marks [facility] ED er visit [id number] 11/24/2019 18:36:00 0 19:22:00 DIS Emergency ЮЛИЯ CHENG [facility] ED ED Visit [id number] 11/15/2019 22:30:39 0 23:14:00 DIS Emergency Pam Marks [facility] ED ED Visit [id number] 08/22/2019 21:50:09 0 07:49:00 DIS Outpatient RADHA EATON [facility] INF abd cellulitis [id number] 08/25/2019 20:44:34 0 21:23:00 DIS Emergency SILVANA MERAZ [facility] ED er visit [id number] 08/21/2019 18:39:46 0 21:35:00 DIS Emergency RADHA EATON [facility] ED ER [id number] 07/25/2019 20:18:03 0 21:08:00 DIS Emergency Jim Manrique [facility] ED ed visit [id number] 07/01/2019 20:36:08 9 21:44:00 DIS Emergency Mounika Cedeno [facility] ED ED Visit [id number] 06/09/2019 18:47:03 9 20:09:00 DIS Emergency ЮЛИЯ CHENG [facility] ED ed visit [id number] 06/06/2019 21:55:51 9 22:25:00 DIS Emergency SILVANA MERAZ [facility] ED ED Visit [id number] 05/26/2019 20:05:04 9 20:42:00 DIS Emergency En Rosi [facility] ED ed visit [id number] 04/16/2019 20:47:48 9 10:21:00 DIS R ЮЛИЯ CHENG [facility] INF MRSA, cellulitis [id number] 04/19/2019 23:46:29 9 00:17:00 DIS Emergency SILVANA MERAZ [facility] ED ed visit [id number] 04/16/2019 00:25:08 9 06:36:00 DIS Emergency ЮЛИЯ CHENG [facility] ED ER visit [id number] 03/24/2019 22:05:39 9 23:08:00 DIS Emergency ЮЛИЯ CHENG [facility] ED ER visit [id number] 03/11/2019 01:44:37 9 02:32:00 DIS Emergency ЮЛИЯ CHENG [facility] ED ed visit [id number] 01/29/2019 00:06:00 9 01:40:00 DIS Emergency SILVANA MERAZ [facility] ED ed visit [id number] 12/22/2018 21:28:00 9 23:50:00 DIS Emergency ЮЛИЯ CHENG [facility] ED ER [id number] 11/06/2018 21:51:00 9 00:03:00 DIS Emergency PAM SALAS [facility] ED ed visit [id number] 10/28/2018 16:03:00 9 16:32:00 DIS Emergency Mounika Cedeno [facility] ED er visit [id number] 10/21/2018 13:00:00 9 23:59:59 CLS Outpatient YARON FLORES [facility] Ortho [id number] 09/22/2018 18:56:00 9 19:35:00 DIS Emergency Reyes Farley [facility] ED ed visit [id number] 09/03/2018 20:45:00 9 21:11:00 DIS Emergency SILVANA MERAZ [facility] ED ED VISIT [id number] 08/23/2018 10:33:38 9 23:59:59 DIS Outpatient YARON FLORES [facility] RAD xray [id number] 08/23/2018 10:00:00 9 23:59:59 DIS Outpatient YARON FLORES [facility] Ortho [id number] 08/05/2018 21:19:00 9 22:01:00 DIS Emergency RADHA AN [facility] ED ed visit [id number] 08/02/2018 11:00:00 9 23:59:59 DIS Outpatient YARON FLORES [facility] Ortho [id number] 07/10/2018 00:39:00 9 01:00:00 DIS Emergency SILVANA MERAZ [facility] ED ed visit [id number] 06/22/2018 15:33:00 8 16:25:00 DIS Emergency RADHA AN [facility] ED ed visit [id number] 04/28/2018 22:37:00 8 23:59:00 DIS Emergency RADHA AN [facility] ED ER [id number] 04/24/2018 21:33:00 8 22:13:00 DIS Emergency SILVANA MERAZ [facility] ED ED visit [id number] 04/14/2018 03:21:00 8 04:06:00 DIS Emergency PAM SALAS [facility] ED ED Visit [id number] 04/06/2018 00:35:00 8 02:20:00 DIS Emergency ЮЛИЯ CHENG [facility] ED ED Visit [id number] 03/31/2018 16:21:00 8 17:05:00 DIS Emergency RADHA EATON [facility] ED ed visit [id number] 03/22/2018 22:36:00 8 00:23:00 DIS Emergency PAM SALAS [facility] ED ed visit [id number] 01/08/2018 01:43:00 8 02:35:00 DIS Emergency RADHA AN [facility] ED ER [id number] 11/21/2017 08:15:00 8 09:30:00 DIS Emergency CORTEZ HOLLAND [facility] ED ed visit [id number] 11/15/2017 15:10:00 8 16:50:00 DIS Emergency RADHA AN [facility] ED ED Visit [id number] 11/04/2017 19:40:00 8 20:26:00 DIS Emergency Rosi Gatica [facility] ED ed visit [id number] 09/02/2017 21:17:00 8 22:17:00 DIS Emergency SILVANA MERAZ [facility] ED ED visit [id number] 12/04/2016 21:20:00 7 00:20:00 DIS Emergency PAM SALAS [facility] ED interstitial cystiti s [id number] 10/19/2016 22:17:00 7 23:25:00 DIS Emergency RADHA AN [facility] ED R foot pain [id number] 10/15/2016 23:08:00 7 00:25:00 DIS Emergency Sujey Donovan [facility] ED right ankle pain [id number] 09/25/2016 10:56:00 7 11:44:00 DIS Emergency MARY HERNANDEZ [facility] ED cyst [id number] 09/21/2016 01:33:00 7 03:10:00 DIS Emergency ЮЛИЯ CHENG [facility] ED dysuria [id number] 09/15/2016 10:04:00 7 11:10:00 DIS Emergency Sujey Donovan [facility] ED lump on neck [id number] 08/24/2016 21:28:00 7 23:01:00 DIS Emergency SILVANA MERAZ [facility] ED Right leg swelling [id number] 07/11/2016 14:15:00 7 23:59:59 CLS Outpatient YARON FLORES [facility] Ortho [id number] 07/03/2016 12:39:00 6 14:43:00 DIS Emergency SILVANA MERAZ [facility] ED foot pain [id number] 02/08/2018 02:16:05 Document Registration [id number] 07/03/2016 12:43:56 Document Registration [id number] 10/05/2016 11:32:10 017 23:59:59 CLS Outpatient Sascha Quevedo [id number] 08/12/2017 10:03:37 ACT Unknown [id number] 05/15/2017 14:20:00 05/15/2017 23:59:5 9 CLS Outpatient MARY SHAVER PA-C [facility] [id number] 01/09/2020 06:54:00 Document Registration [id number] 01/08/2020 17:01:19 Document Registration [id number] 01/07/2016 00:01:00 02/06/2016 23: 59:00 DIS Outpatient ЮЛИЯ CHENG [facility] INF [id number] 02/04/2016 14:52:00 02/04/2016 16:00 :00 DIS Emergency ЮЛИЯ FANG [facility] EMR [id number] 01/12/2016 21:06:00 01/12/2016 22:15 :00 DIS Emergency RADHA AN [facility] EMR [id number] 12/16/2015 08:16:00 01/06/2016 23: 59:00 DIS Outpatient ЮЛИЯ CHENG [facility] INF [id number] 12/30/2015 21:55:00 12/31/2015 01:30 :00 DIS Emergency PAM SALAS [facility] EMR [id number] 12/21/2015 22:53:00 12/22/2015 00:55 :00 DIS Emergency PAM SALAS [facility] EMR [id number] 12/15/2015 19:13:00 12/15/2015 23:00 :00 DIS Emergency ЮЛИЯ CHENG [facility] EMR [id number] 11/14/2015 02:54:00 11/14/2015 03:36 :00 DIS Emergency TERRY PINK [facility] EMR [id number] 11/12/2015 15:22:00 11/12/2015 16:28 :00 DIS Emergency CORTEZ HOLLAND [facility] EMR [id number] 10/08/2015 00:01:00 11/06/2015 23: 59:00 DIS Outpatient LENARD BYRD [facility] INF [id number] 11/06/2015 08:42:00 11/06/2015 09:30 :00 DIS Emergency RADHA AN [facility] EMR [id number] 11/02/2015 10:08:00 11/02/2015 15:30 :00 DIS Outpatient CATY GARZA [facility] OPS [id number] 10/30/2015 13:37:00 10/30/2015 15:14 :00 DIS Emergency SILVANA MERAZ [facility] EMR [id number] 10/18/2015 15:37:00 10/18/2015 16:15 :00 DIS Emergency SILVANA MERAZ [facility] EMR [id number] 09/25/2015 08:14:00 10/07/2015 23: 59:00 DIS Outpatient LENARD BYRD [facility] INF [id number] 10/04/2015 16:16:00 10/04/2015 16:16 :00 DIS Outpatient ROCHELLE, VERDON W [facility] PANACE [id number] 09/16/2015 13:04:00 09/30/2015 08: 41:00 DIS Outpatient LENARD BYRD [facility] OBS [id number] 09/20/2015 15:11:00 09/24/2015 15:22 :00 DIS Inpatient LENARD BYRD [facility] 2F [id number] 09/13/2015 16:45:00 09/15/2015 13:30 :00 DIS Outpatient LENARD BYRD [facility] OBS [id number] 09/13/2015 17:06:00 09/13/2015 17:06 :00 DIS Outpatient LENARD BYRD [facility] PANACE [id number] 09/12/2015 21:43:00 09/12/2015 22:50 :00 DIS Emergency PAM SALAS [facility] EMR [id number] 09/07/2015 09:07:00 09/07/2015 14:35 :00 DIS Outpatient CATY GARZA [facility] OPS [id number] 08/22/2015 13:02:00 08/26/2015 16: 27:00 DIS Outpatient ЮЛИЯ CHENG [facility] OBS [id number] 08/23/2015 16:52:00 08/23/2015 17:25 :00 DIS Emergency CORTEZ HOLLAND [facility] EMR [id number] 08/21/2015 21:57:00 08/22/2015 02:08 :00 DIS Emergency ЮЛИЯ CHENG [facility] EMR [id number] 08/14/2015 03:48:00 08/14/2015 04:49 :00 DIS Emergency SILVANA MERAZ [facility] EMR [id number] 08/12/2015 08:44:00 08/12/2015 13:25 :00 DIS Outpatient CATY GARZA [facility] OPS [id number] 08/02/2015 01:03:00 08/02/2015 01:40 :00 DIS Emergency SILVANA MERAZ [facility] EMR [id number] 07/31/2015 17:36:00 07/31/2015 18:20 :00 DIS Emergency [facility] [id number] 07/19/2015 10:48:00 07/19/2015 14:40 :00 DIS Inpatient CATY GARZA [facility] OPS [id number] 07/04/2015 16:07:00 07/04/2015 16:33 :00 DIS Emergency RADHA AN [facility] EMR [id number] 06/30/2015 11:51:00 06/30/2015 15:00 :00 DIS Inpatient CATY GARZA [facility] OPS [id number] 06/18/2015 08:44:00 06/18/2015 12:30 :00 DIS Inpatient CATY GARZA [facility] OPS [id number] 06/06/2015 01:07:00 06/06/2015 01:55 :00 DIS Emergency PRATIK MARKS [facility] EMR [id number] 06/02/2015 08:15:00 06/02/2015 14:15 :00 DIS Inpatient CATY GARZA [facility] OPS [id number] 05/30/2015 19:36:00 05/30/2015 20:22 :00 DIS Emergency CAROLEE WHITE [facility] EMR [id number] 05/21/2015 21:32:00 05/21/2015 23:12 :00 DIS Emergency SHOSHANABABSRachid SILVANA Keesha [facility] EMR [id number] 05/17/2015 15:46:00 05/17/2015 18:48 :00 DIS Emergency JULIO NAQVI [facility] EMR [id number] 05/08/2015 22:38:00 05/08/2015 23:30 :00 DIS Emergency RADHA AN [facility] EMR [id number] 04/29/2015 13:47:00 04/30/2015 15:20 :00 DIS Inpatient CATY GARZA [facility] OBS [id number] 04/29/2015 09:40:00 04/29/2015 12:45 :00 DIS Outpatient CATY GARZA [facility] OPS [id number] 04/01/2015 08:45:00 04/01/2015 13:00 :00 DIS Inpatient CATY GARZA [facility] OPS [id number] 03/25/2015 21:10:00 03/25/2015 21:30 :00 DIS Emergency ЮЛИЯ FANG [facility] EMR [id number] 03/14/2015 02:31:00 03/14/2015 03:38 :00 DIS Emergency BEHZAD HERNANDEZ [facility] EMR [id number] 03/02/2015 18:23:00 03/02/2015 20:09 :00 DIS Emergency RADHA AN [facility] EMR [id number] 03/01/2015 23:56:00 03/02/2015 00:20 :00 DIS Emergency RADHA AN [facility] EMR [id number] 02/26/2015 10:28:00 02/26/2015 10:28 :00 DIS Outpatient RACHEL NUÑEZ [facility] RAD [id number] 02/25/2015 08:40:00 02/25/2015 11:45 :00 DIS Outpatient CATY GARZA Lilly [facility] OPS [id number] 02/18/2015 23:32:00 02/19/2015 00:04 :00 DIS Emergency RADHA AN [facility] EMR [id number] 01/06/2015 00:01:00 02/05/2015 23: 59:00 DIS Outpatient GREGCATY KAY [facility] EMR [id number] 01/19/2015 00:27:00 01/19/2015 01:13 :00 DIS Emergency JOSE MANUEL MOORE [facility] EMR [id number] 01/15/2015 00:46:00 01/15/2015 01:20 :00 DIS Emergency ЮЛИЯ FANG [facility] EMR [id number] 12/17/2014 19:38:00 01/05/2015 23: 59:00 DIS Outpatient CATY GARZA Lilly [facility] EMR [id number] 12/26/2014 02:14:00 12/26/2014 03:35 :00 DIS Emergency NATALIYA RADHA Lilly [facility] EMR [id number] 12/23/2014 06:30:00 12/23/2014 10:10 :00 DIS Outpatient GREG CATY Carr [facility] OPS [id number] 12/21/2014 22:07:00 12/21/2014 23:00 :00 DIS Emergency CORTEZ HOLLAND [facility] EMR [id number] 12/19/2014 09:59:00 12/19/2014 12:13 :00 DIS Emergency SILVANA MERAZ [facility] EMR [id number] 11/05/2014 10:05:00 11/05/2014 14:45 :00 DIS Inpatient GREGCATY KAY [facility] OPS [id number] 10/27/2014 15:17:00 10/27/2014 17:32 :00 DIS Emergency SILVANA MERAZ [facility] EMR [id number] 10/07/2014 00:01:00 10/22/2014 11: 40:00 DIS Outpatient CAROLEE WHITE [facility] PT [id number] 10/21/2014 16:58:00 10/21/2014 18:12 :00 DIS Emergency CORTEZ HOLLAND [facility] EMR [id number] 10/21/2014 07:10:00 10/21/2014 10:30 :00 DIS Outpatient GREGCATY [facility] OPS [id number] 10/16/2014 00:46:00 10/16/2014 01:40 :00 DIS Emergency SILVANA MERAZ [facility] EMR [id number] 09/06/2014 00:01:00 10/06/2014 23: 59:00 DIS Outpatient CAROLEE WHITE [facility] INF [id number] 09/06/2014 00:01:00 10/06/2014 23: 59:00 DIS Outpatient DILCAROLEE GRAF [facility] PT [id number] 09/29/2014 08:35:00 09/29/2014 12:25 :00 DIS Inpatient CATY GARZA [facility] OPS [id number] 08/20/2014 08:20:00 08/20/2014 14:00 :00 DIS Inpatient GREGCATY KAY [facility] OPS [id number] 07/14/2014 08:10:00 07/14/2014 13:10 :00 DIS Outpatient GREGCATY KAY [facility] OPS [id number] 06/26/2014 08:50:00 06/26/2014 12:45 :00 DIS Inpatient GREGCATY KAY [facility] OPS [id number] 06/10/2014 14:24:00 06/17/2014 03: 55:00 DIS Outpatient DAYNA OMSER [facility] OBS [id number] 06/08/2014 19:55:00 06/08/2014 20:15 :00 DIS Emergency MARY HERNANDEZ [facility] EMR [id number] 03/19/2014 12:55:00 03/19/2014 12:55 :00 DIS Outpatient RADHA CADE Jacey [facility] RAD [id number] 11/06/2013 00:01:00 12/06/2013 23: 59:00 DIS Outpatient DILLOWCAROLEE Keesha [facility] INF [id number] 10/30/2013 08:47:00 11/05/2013 23: 59:00 DIS Outpatient DILLOW CAROLEE Thao [facility] INF [id number] 10/29/2013 20:49:00 10/30/2013 01:38 :00 DIS Emergency DILHOMAR CAROLEE Keesha [facility] EMR [id number] 10/26/2013 01:30:00 10/28/2013 13:30 :00 DIS Inpatient DILHOMAR CAROLEE Thao [facility] 2F [id number] 10/17/2013 18:47:00 10/17/2013 19:43 :00 DIS Emergency JOSE MANUEL MOORE [facility] EMR [id number] 10/07/2013 06:40:00 10/07/2013 10:30 :00 DIS Inpatient CATY GARZA [facility] OPS [id number] 01/29/2016 22:24:00 Document Registration [id number] 12/26/2015 16:49:00 Document Registration [id number] 06/07/2015 00:00:00 Document Registration [id number] 06/07/2015 00:00:00 Document Registration [id number] 06/07/2015 00:00:00 Document Registration [id number] 06/07/2015 00:00:00 Document Registration [id number] 06/07/2015 00:00:00 Document Registration [id number] 06/07/2015 00:00:00 Document Registration [id number] 06/07/2015 00:00:00 Document Registration [id number] 04/18/2015 23:40:00 Document Registration [id number] 08/17/2014 10:38:16 Document Registration [id number] 08/06/2014 21:35:00 Document Registration [id number] 06/07/2014 00:00:00 Document Registration [id number] 06/07/2014 00:00:00 Document Registration [id number] 06/07/2014 00:00:00 Document Registration [id number] 10/02/2013 14:25:42 Document Registration [id number] 06/07/2013 00:00:00 Document Registration [id number] 06/07/2013 00:00:00 Document Registration [id number] 06/07/2013 00:00:00 Document Registration [id number] 06/07/2013 00:00:00 Document Registration [id number] 06/07/2013 00:00:00 Document Registration [id number] 06/07/2013 00:00:00 Document Registration [id number] 09/04/2016 09:39:00 Document Registration [id number] 09/04/2016 09:39:00 017 17:05:00 DIS Outpatient Ammar,Sascha [facility] on [place] [facility] F3E Lower Extremity Swel ling [id number] 08/30/2016 11:20:00 017 23:59:00 DIS Outpatient Quevedo Alex [facility] on [facility] Non-Invas bilateral lower extremity swelling [id number] 2015 01:47:00 016 03:40:00 DIS Emergency Francis Melgar [facility] on [facility] ED MRSA [id number] 09/05/2016 05:16:01 Document Registration [id number] 2015 05:17:24 Document Registration [id number] 01/13/2020 11:35:39 01/13/2020 23:59: 59 CLS Outpatient Leeds, Andres [id number] 01/05/2020 11:47:18 01/05/2020 23:59: 59 CLS Outpatient Leeds, Andres [id number] 12/22/2019 11:39:54 12/22/2019 23:59: 59 CLS Outpatient Leeds, Andres [id number] 12/15/2019 16:00:09 12/15/2019 23:59: 59 CLS Outpatient Julien, Elio [id number] 12/12/2019 14:19:00 12/12/2019 23:59: 59 CLS Outpatient Julien, Elio [id number] 12/10/2019 14:30:12 12/10/2019 23:59: 59 CLS Outpatient Leeds, Andres [id number] 11/20/2019 09:37:56 11/20/2019 23:59: 59 CLS Outpatient ANDRES NAIK [id number] 10/15/2019 11:05:52 10/15/2019 23:59: 59 CLS Outpatient Leeds, Andres [id number] 08/27/2019 11:26:02 08/27/2019 23:59: 59 CLS Outpatient Leeds, Andres [id number] 08/20/2019 11:12:50 08/20/2019 23:59: 59 CLS Outpatient Leeds, Andres [id number] 08/04/2019 12:16:12 08/04/2019 23:59: 59 CLS Outpatient Leeds, Andres [id number] 07/28/2019 16:39:39 07/28/2019 23:59: 59 CLS Outpatient Leeds, Andres [id number] 07/22/2019 11:04:15 07/22/2019 23:59: 59 CLS Outpatient Leeds, Andres [id number] 07/18/2019 17:26:36 07/18/2019 23:59: 59 CLS Outpatient Leeds, Andres [id number] 07/14/2019 11:31:58 07/14/2019 23:59: 59 CLS Outpatient Leeds, Andres [id number] 06/16/2019 16:08:49 06/16/2019 23:59: 59 CLS Outpatient Leeds, Andres [id number] 04/21/2019 15:17:16 04/21/2019 23:59: 59 CLS Outpatient ANDRES NAIK Keesha [id number] 04/02/2019 15:55:06 04/02/2019 23:59: 59 CLS Outpatient Leeds, Andres [id number] 03/24/2019 15:12:29 03/24/2019 23:59: 59 CLS Outpatient ANDRES NAIK Keesha [id number] 02/24/2019 14:03:00 02/24/2019 23:59: 59 CLS Outpatient Mark Julienitya [id number] 01/21/2019 14:04:21 01/21/2019 23:59: 59 CLS Outpatient HEENAANDRES Keesha [id number] 01/06/2019 12:03:58 01/06/2019 23:59: 59 CLS Outpatient Leeds, Andres [id number] 10/31/2018 12:42:08 10/31/2018 23:59: 59 CLS Outpatient Dayna Moser [id number] 10/30/2018 10:56:38 10/30/2018 23:59: 59 CLS Outpatient Leeds, Andres [id number] 10/29/2018 15:11:16 10/29/2018 23:59: 59 CLS Outpatient Leeds, Andres [id number] 09/25/2018 11:47:45 09/25/2018 23:59: 59 CLS Outpatient Leeds, Anrdes [id number] 08/06/2018 14:36:11 08/06/2018 23:59: 59 CLS Outpatient Leeds, Andres [id number] 07/23/2018 10:59:25 07/23/2018 23:59: 59 CLS Outpatient Leeds, Andres [id number] 07/19/2018 14:44:40 07/19/2018 23:59: 59 CLS Outpatient Leeds, Andres [id number] 07/15/2018 16:42:14 07/15/2018 23:59: 59 CLS Outpatient Leeds, Andres [id number] 07/12/2018 11:38:33 07/12/2018 23:59: 59 CLS Outpatient Leeds, Andres [id number] 07/03/2018 11:55:14 07/03/2018 23:59: 59 CLS Outpatient Leeds, Andres [id number] 06/24/2018 14:06:03 06/24/2018 23:59: 59 CLS Outpatient Leeds, Andres [id number] 06/21/2018 11:11:33 06/21/2018 23:59: 59 CLS Outpatient Leeds, Andres [id number] 06/11/2018 10:10:36 06/11/2018 23:59: 59 CLS Outpatient Leeds, Andres [id number] 06/04/2018 10:05:01 06/04/2018 23:59: 59 CLS Outpatient HEENA, ANDRES Keesha [id number] 05/27/2018 14:52:09 05/27/2018 23:59: 59 CLS Outpatient Leeds, Andres [id number] 05/24/2018 09:33:38 05/24/2018 23:59: 59 CLS Outpatient Leeds, Andres [id number] 05/22/2018 15:13:06 05/22/2018 23:59: 59 CLS Outpatient Leeds, Andres [id number] 04/23/2018 15:36:13 04/23/2018 23:59: 59 CLS Outpatient HEENAANDRES Keesha [id number] 04/16/2018 09:41:39 04/16/2018 23:59: 59 CLS Outpatient HEENAANDRES Keesha [id number] 04/08/2018 14:46:37 04/08/2018 23:59: 59 CLS Outpatient Leeds, Andres [id number] 04/02/2018 16:25:13 04/02/2018 23:59: 59 CLS Outpatient Leeds, Andres [id number] 03/26/2018 09:54:08 03/26/2018 23:59: 59 CLS Outpatient Leeds, Andres [id number] 03/15/2018 11:49:20 03/15/2018 23:59: 59 CLS Outpatient Leeds, Andres [id number] 03/12/2018 11:01:38 03/12/2018 23:59: 59 CLS Outpatient Leeds, Andres [id number] 03/05/2018 10:06:58 03/05/2018 23:59: 59 CLS Outpatient Leeds, Andres [id number] 01/30/2018 14:22:25 01/30/2018 23:59: 59 CLS Outpatient Andres Wooten [id number] 01/18/2018 10:41:38 01/18/2018 23:59: 59 CLS Outpatient ANDRES NAIK [id number] 09/08/2013 21:52:11 09/08/2013 23:59: 59 CLS Outpatient Keesha Ojeda
== END 2020-01-18 15:31 | disposition left against medical advice (07) ==
LOC: ER 15:21
DX: T81.40XA Infection following a procedure, unspecified, initial encounter (principal)

== ENCOUNTER 2020-01-18 22:38 | Emergency (ER) | payer MEDICAID ==
[~2020-01-18] VITALS: Ht 170 cm; Wt 108.8 kg
[2020-01-18] MEDS ORDERED: fentaNYL INJECTION 100 MCG/2 ML AMP IVP STA (22:54)
[2020-01-18] MEDS ORDERED: LACTATED RINGERS 1,000 ML IV ONE (22:54)
[2020-01-18 23:06] LABS: BASOPHILS # (AUTO) 0.1 10^3/uL (0.0-0.1); BASOPHILS % (AUTO) 1 % (0-10); EOSINOPHILS # (AUTO) 0.2 10^3/uL (0.0-0.3); EOSINOPHILS % (AUTO) 2 % (0-10); HEMATOCRIT 40 % (35-52); HEMOGLOBIN 13.7 G/DL (11.5-16.0); LYMPHOCYTES # (AUTO) 3.5 X 10^3 (1.0-4.0); LYMPHOCYTES % (AUTO) 31 % (12-44); MEAN CORPUSCULAR HEMOGLOBIN 29 PG (25-34); MEAN CORPUSCULAR HGB CONC 34 G/DL (32-36); MEAN CORPUSCULAR VOLUME 84 FL (80-99); MEAN PLATELET VOLUME 9.4 FL (7.4-10.4); MONOCYTES # (AUTO) 0.9 X 10^3 (0.0-1.0); MONOCYTES % (AUTO) 7 % (0-12); NEUTROPHILS # (AUTO) 6.8 X 10^3 (1.8-7.8); NEUTROPHILS % (AUTO) 59 % (42-75); PLATELET COUNT 332 10^3/uL (130-400); RED CELL DISTRIBUTION WIDTH 13.1 % (10.0-14.5); WHITE BLOOD COUNT 11.5 10^3/uL (4.3-11.0)
--- NOTE | 2020-01-18 23:09 | ED General ---
General Chief Complaint: Post OP Complications/Pain Stated Complaint: STOMACH PAIN Source of Information: Patient Exam Limitations: No Limitations History of Present Illness Date Seen by Provider: Jan 18, 2020 Time Seen by Provider: 22:45 Initial Comments Here with report of significant lower abdominal pain that is worsening. She did have surgery on 01/09/20 related to hidradenitis. A large portion of the lower pannus was removed at the fold secondary to hidradenitis. She has john from hip to hip. Denies foul-smelling drainage. States that this morning she started having worsening pain from the vulva to the bellybutton area and that has worsened since from central to lateral. Pain with any movement or touching. She did present earlier but left prior to being seen because there was a wait. She states that she could not sit up due to the pain so she went home and laid down. She took 2 hydrocodone at that time and that did not help and represents tonight due to increasing pain. Does note some redness centrally. Denies dysuria or diarrhea. She did have COVID-19 screening prior to surgery which was negative and she staying at a house in [place] with her family who have also been tested and are negative. She otherwise has no contact with anybody else and no contact with anybody with concerns for COVID-19. Surgery was done in [place]. Timing/Duration: 24 Hours, Getting Worse Severity: Moderate, Severe Modifying Factors: improves with Immobilization; worse with Movement Associated Systoms: No Chest Pain, No Cough, No Fever/Chills; Loss of Appetite; No Nausea/Vomiting, No Shortness of Air, No Weakness Allergies and Home Medications Allergies Coded Allergies: Penicillins (Verified Allergy, Unknown, 01/18/20) Sulfa (Sulfonamide Antibiotics) (Verified Allergy, Unknown, 01/18/20) azithromycin (Verified Allergy, Unknown, 01/18/20) ketorolac (Verified Allergy, Unknown, 01/18/20) latex (Verified Allergy, Unknown, 01/18/20) tramadol (Verified Allergy, Unknown, 01/18/20) Patient Home Medication List Home Medication List Reviewed: Yes Review of Systems Review of Systems Constitutional: see HPI; No chills, No fever EENTM: No nose congestion, No throat pain Respiratory: No cough, No short of breath Cardiovascular: No chest pain, No edema Gastrointestinal: abdominal pain, loss of appetite; No nausea, No vomiting Genitourinary: No dysuria, No pain Musculoskeletal: No back pain, No joint pain Skin: change in color, lesions; No pruritus Psychiatric/Neurological: No Symptoms Reported All Other Systems Reviewed Negative Unless Noted: Yes Past Cqbflit-Zmcddk-Dyaucy Hx Past Med/Social Hx: Reviewed Nursing Past Med/Soc Hx Patient Social History Alcohol Use: Denies Use Recreational Drug Use: No Smoking Status: Current Everyday Smoker Recent Foreign Travel: No Contact w/Someone Who Travel: No Past Medical History Surgeries: Yes (multiple surgeries for hidradenitis axilla, groin and low pannus) Gallbladder, Hysterectomy Respiratory: No Cardiac: No Neurological: No Genitourinary: No Gastrointestinal: No Musculoskeletal: No Endocrine: No Integumentary: Yes (hidradenitis) Family Medical History Reviewed Nursing Family Hx No Pertinent Family Hx Physical Exam-Suspected Sepsis Physical Exam Vital Signs Vital Signs - First Documented 01/18/20 22:51 Temp 36.7 Pulse 89 Resp 20 B/P (MAP) 143/98 (113) Pulse Ox 99 Capillary Refill : Height, Weight, BMI Height: '" Weight: lbs. oz. kg; BMI Method: General Appearance: WD/WN, Moderate Distress, Obese HEENT: PERRL/EOMI, Pharynx Normal Neck: Non Tender, Supple Respiratory: Lungs Clear, Normal Breath Sounds Cardiovascular: Regular Rate, Rhythm, No Murmur Gastrointestinal: Soft, Tenderness (throughout the low abdomen left or right at the reflection of the pannus. Multiple john from hip to hip at the pannus reflection resection) Back: Normal Inspection, No CVA Tenderness, No Vertebral Tenderness Extremity: Normal Range of Motion, Non Tender Neurologic/Psychiatric: Alert, Oriented x3 Skin: warm/dry, other (mild erythema noted along the surgical wound and midline upper vulva to umbilicus in the area of the gauze and penis reflection. No foul- smelling drainage or significant purulent drainage noted. Serous drainage noted on gauze.) Focused Exam Lactate Level 01/18/20 22:51: Lactic Acid Level 1.48 Lactic Acid Level Laboratory Tests Test 01/18/20 22:51 Lactic Acid Level 1.48 MMOL/L (0.50-2.00) Progress/Results/Core Measures Suspected Sepsis SIRS Temperature: Pulse: Respiratory Rate: Laboratory Tests 01/18/20 22:51: White Blood Count 11.5H Blood Pressure / Mean: 01/18/20 22:51: Lactic Acid Level 1.48 Laboratory Tests 01/18/20 22:51: Creatinine 0.77, INR Comment 0.9, Platelet Count 332, Total Bilirubin 0.3 Results/Orders Lab Results Laboratory Tests Test 01/18/20 22:51 01/18/20 23:21 Range/Units White Blood Count 11.5 H 4.3-11.0 10^3/uL Red Blood Count 4.74 4.35-5.85 10^6/uL Hemoglobin 13.7 11.5-16.0 G/DL Hematocrit 40 35-52 % Mean Corpuscular Volume 84 80-99 FL Mean Corpuscular Hemoglobin 29 25-34 PG Mean Corpuscular Hemoglobin Concent 34 32-36 G/DL Red Cell Distribution Width 13.1 10.0-14.5 % Platelet Count 332 130-400 10^3/uL Mean Platelet Volume 9.4 7.4-10.4 FL Neutrophils (%) (Auto) 59 42-75 % Lymphocytes (%) (Auto) 31 12-44 % Monocytes (%) (Auto) 7 0-12 % Eosinophils (%) (Auto) 2 0-10 % Basophils (%) (Auto) 1 0-10 % Neutrophils # (Auto) 6.8 1.8-7.8 X 10^3 Lymphocytes # (Auto) 3.5 1.0-4.0 X 10^3 Monocytes # (Auto) 0.9 0.0-1.0 X 10^3 Eosinophils # (Auto) 0.2 0.0-0.3 10^3/uL Basophils # (Auto) 0.1 0.0-0.1 10^3/uL Prothrombin Time 12.9 12.2-14.7 SEC INR Comment 0.9 0.8-1.4 Activated Partial Thromboplast Time 31 24-35 SEC Sodium Level 142 135-145 MMOL/L Potassium Level 3.7 3.6-5.0 MMOL/L Chloride Level 105 98-107 MMOL/L Carbon Dioxide Level 23 21-32 MMOL/L Anion Gap 14 5-14 MMOL/L Blood Urea Nitrogen 8 7-18 MG/DL Creatinine 0.77 0.60-1.30 MG/DL Estimat Glomerular Filtration Rate > 60 BUN/Creatinine Ratio 10 Glucose Level 110 H 70-105 MG/DL Lactic Acid Level 1.48 0.50-2.00 MMOL/L Calcium Level 9.3 8.5-10.1 MG/DL Corrected Calcium 9.1 8.5-10.1 MG/DL Total Bilirubin 0.3 0.1-1.0 MG/DL Aspartate Amino Transf (AST/SGOT) 29 5-34 U/L Alanine Aminotransferase (ALT/SGPT) 43 0-55 U/L Alkaline Phosphatase 75 40-136 U/L Total Protein 7.4 6.4-8.2 GM/DL Albumin 4.2 3.2-4.5 GM/DL Urine Color YELLOW Urine Clarity CLOUDY Urine pH 8.0 5-9 Urine Specific [place] 1.015 L 1.016-1.022 Urine Protein NEGATIVE NEGATIVE Urine Glucose (UA) NEGATIVE NEGATIVE Urine Ketones NEGATIVE NEGATIVE Urine Nitrite NEGATIVE NEGATIVE Urine Bilirubin NEGATIVE NEGATIVE Urine Urobilinogen 0.2 < = 1.0 MG/DL Urine Leukocyte Esterase NEGATIVE NEGATIVE Urine RBC (Auto) NEGATIVE NEGATIVE Urine RBC NONE /HPF Urine WBC NONE /HPF Urine Squamous Epithelial Cells 10-25 H /HPF Urine Crystals PRESENT H /LPF Urine Amorphous Sediment [place] PHOSPHATE H /LPF Urine Bacteria TRACE /HPF Urine Casts NONE /LPF Urine Mucus NEGATIVE /LPF Urine Culture Indicated CULTURE PENDING My Orders Orders - JAKE CARRILLO MD Cbc With Automated Diff (01/18/20 22:54) Comprehensive Metabolic Panel (01/18/20 22:54) Blood Culture (01/18/20 22:54) Sputum Culture (01/18/20 22:54) Urinalysis (01/18/20 22:54) Urine Culture (01/18/20 22:54) Protime With Inr (01/18/20 22:54) Partial Thromboplastin Time (01/18/20 22:54) Chest 1 View, Ap/Pa Only (01/18/20 22:54) Ed Iv/Invasive Line Start (01/18/20 22:54) Vital Signs Adult Sepsis Patie Q15M (01/18/20 22:54) O2 (01/18/20 22:54) Remove Rings In Anticipation O (01/18/20 22:54) Lactic Acid Analyzer (01/18/20 22:54) Fentanyl Injection (Sublimaze Injection (01/18/20 22:54) Lactated Ringers (Lr 1000 Ml Iv Solution (01/18/20 22:54) Ondansetron Injection (Zofran Injectio (01/18/20 23:15) Ct Abdomen/Pelvis W (01/18/20 23:25) Iohexol Injection (Omnipaque 350 Mg/Ml 1 (01/18/20 23:45) Ns (Ivpb) (Sodium Chloride 0.9% Ivpb Bag (01/18/20 23:45) Hydromorphone Injection (Dilaudid Inject (01/19/20 00:15) Medications Given in ED Current Medications Medications Dose Ordered Sig/Marjan Route Start Time Stop Time Status Last Admin Dose Admin Hydromorphone HCl 1 mg ONCE ONCE IV 01/19/20 00:15 01/19/20 00:16 01/19/20 00:14 1 MG Iohexol 100 ml ONCE ONCE IV 01/18/20 23:45 01/19/20 00:05 DC 01/18/20 23:43 100 ML Lactated Ringer's 1,000 ml @ 0 mls/hr Q0M ONCE IV 01/18/20 22:54 01/18/20 22:57 DC 01/18/20 23:02 1,000 MLS/HR Ondansetron HCl 4 mg ONCE ONCE IVP 01/18/20 23:15 01/18/20 23:16 DC 01/18/20 23:21 4 MG Sodium Chloride 80 ml ONCE ONCE IV 01/18/20 23:45 01/19/20 00:05 DC 01/18/20 23:44 80 ML Vital Signs/I&O 01/18/20 22:51 Temp 36.7 Pulse 89 Resp 20 B/P (MAP) 143/98 (113) Pulse Ox 99 Capillary Refill : Progress Note : Progress Note Seen and evaluated. He, labs, blood cultures and lactic acid ordered. UA and chest x-ray ordered for sepsis workup. Anticipate CT abdomen and pelvis due to concerns of infection and patient complains of pain is central and deeper now. Concerns for abscess/cellulitis and postop surgical infection. Monitor patient. 0015: CT abdomen pelvis done and results noted. No abscess or hematoma noted and otherwise labs do not indicate serious bacterial infection. This may be postop changes with the fat stranding. Dilaudid 1 mg IV given for continuation of pain. I did discuss with her about options and I believe that she can be discharged home and I have instructed her to follow-up with her surgeon tomorrow morning by calling his office for further instructions. Discharge home with return precautions. Patient verbalize understanding instructions and agreement with plan. Diagnostic Imaging Diagonstic Imaging: CT Plain Films/CT/US/NM/MRI: abdomen, pelvis Comments Status post hysterectomy. No complication. Low ventral incision with subsequent subcutaneous fat stranding and trace seroma. No hematoma or abscess. Hepatomegaly and hepatic steatosis. Reviewed: [facility] Primary Impression: Post-operative pain Disposition: HOME, SELF-CARE Condition: Improved Departure-Patient Inst. Decision time for Depature: 00:20 Referrals: NO,LOCAL PHYSICIAN (PCP/Family) Primary Care Physician Patient Instructions: Postoperative Pain (DC) Add. Discharge Instructions: Continue home medications as previously prescribed. It is very important that you call your surgeon or stay in the morning to discuss your pain and concerns and you may need recheck within the next one to 2 days. Discussed with your surgeon regarding antibiotics if indicated. Return for worse pain, fever, weakness, breathing problems, foul-smelling drainage, increasing redness or other concerns as needed. Continue cleaning and wound care instructions as discussed by your surgeon. JAKE CARRILLO MD Jan 18, 2020 23:09
[2020-01-18] MEDS ORDERED: ONDANSETRON 4 MG/2 ML (SDV) Z0FRAN IVP ONE (23:15)
[2020-01-18 23:19] LABS: ALBUMIN 4.2 GM/DL (3.2-4.5); CHLORIDE 105 MMOL/L (98-107); POTASSIUM 3.7 MMOL/L (3.6-5.0); SODIUM 142 MMOL/L (135-145)
[2020-01-18 23:20] LABS: CALCIUM 9.3 MG/DL (8.5-10.1)
[2020-01-18 23:22] LABS: GLUCOSE 110 MG/DL (70-105); TOTAL PROTEIN 7.4 GM/DL (6.4-8.2)
[2020-01-18 23:23] LABS: BILIRUBIN,TOTAL 0.3 MG/DL (0.1-1.0); CARBON DIOXIDE 23 MMOL/L (21-32)
[2020-01-18 23:24] LABS: INR 0.9 (0.8-1.4); PROTHROMBIN TIME PATIENT 12.9 SEC (12.2-14.7)
[2020-01-18 23:25] LABS: ALKALINE PHOSPHATASE 75 U/L (40-136); CREATININE SERUM 0.77 MG/DL (0.60-1.30); GFR ESTIMATED > 60
[2020-01-18 23:26] LABS: BUN/CREATININE RATIO 10
[2020-01-18 23:27] LABS: BILIRUBIN,URINE NEGATIVE (NEGATIVE); CLARITY,URINE CLOUDY; COLOR,URINE YELLOW; GLUCOSE, URINE (UA) NEGATIVE (NEGATIVE); KETONES,URINE NEGATIVE (NEGATIVE); LEUKOCYTE ESTERASE ,URINE NEGATIVE (NEGATIVE); NITRITE,URINE NEGATIVE (NEGATIVE); PROTEIN,URINE NEGATIVE (NEGATIVE)
[2020-01-18 23:28] LABS: ALANINE AMINOTRANSFERASE 43 U/L (0-55)
--- OUTSIDE RECORDS SUMMARY | 2020-01-18 23:42 | XMS REPORT | Continuity of Care Document ---
Demographics Preferred Language Unknown Marital Status Unknown Muslim Affiliation Unknown Race Unknown Ethnic Group Unknown Author Organization Unknown Address Unknown Phone Unavailable Allergies Active Description Code Type Severity Reaction Onset Reported/Identified Relationship to Patient Clinical Status Yes azithromycin 3635 Drug Allergy N/A itching~redmess [...] N/A Yes traMADol Drug N/A N/A Yes BACTRIM 87474510 BRANDNAME N/A N/A Yes KETOROLAC 08704802 DRUG N/A N/A Yes LATEX 80949905 ENVIRONMENTAL N/A N/A Yes PENICILLIN 90940637 BRANDNAME N/A N/A Yes TRAMADOL 15759739 DRUG N/A N/A Yes VANCOMYCIN 14854128 DRUG N/A N/A Yes ZITHROMAX [id number] BRANDNAME N/A N/A Yes azithromycin NKMA N/A BHENvOIqqjHLiEoFrp46/w 2015 Yes Bactrim NKMA N/A [id number] 2015 Yes Latex NKMA N/A 412780384 2015 Yes Toradol NKMA N/A [id number] 2015 Yes Bactrim Drug Allergy Unknown N/A [...] AN 709.9 SKIN DISORDER NOS 02/19/2015 RADHA AN 787.02 NAUSEA ALONE 02/19/2015 RADHA AN 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 2 LUMBAGO 03/02/2015 RADHA AN [...] disorders 09/06/2016 Ammar,, Sascha Final Z79.89 1 correction (current) use of opiate analgesic 09/22/2016 Ammar, [...] M79.641 Pain in right hand 06/06/2019 SILVANA MEARZ Reason For Visit L73.2 Hidradenitis suppurativa 06/09/2019 [...] Code Description [place] [address] ROUT INE VENIPUNCTURE 08/08/2014 14888 ASSA Y OF VANCOMYCIN 08/08/2014 89977 ASSA Y OF CREATININE 08/08/2014 84482 ASSA Y OF UREA NITROGEN 08/08/2014 J2550 PROM ETHAZIEN 25MG/ML 08/08/2014 J3370 VANC OMYCIN HCL INJECTION 08/08/2014 J7040 NORM AL SALINE SOLUTION INFUS 08/08/2014 83162 [facility] ANICAL TRACTION THERAPY 10/06/2014 30677 ELEC TRIC STIMULATION THERAPY 10/06/2014 71466 [facility] G[facility] VISIT 10/21/2014 77379 X-RA Y EXAM OF TAILBONE 10/27/2014 35806 [facility] VISIT 10/27/2014 94329 [facility] VISIT 10/27/[address] H EAD/BRAIN W/O DYE 12/19/2014 82978 HYDR ATE IV INFUSION, ADD-ON 12/19/2014 62800 THER /PROPH/DIAG INJ, IV PUSH 12/19/2014 86244 TX/P RO/DX INJ NEW DRUG ADDON 12/19/2014 58017 [facility] VISIT 12/19/2014 74901 [facility] VISIT 12/19/2014 J1885 MOI DOL SYR 30MG/ML 12/19/2014 J2550 PROM ETHAZIEN 25MG/ML 12/19/2014 J7030 NORM AL SALINE SOLUTION INFUS 12/19/2014 50532 THER /PROPH/DIAG INJ, IV PUSH 12/21/2014 20260 TX/P RO/DX INJ NEW DRUG ADDON 12/21/2014 69513 [facility] VISIT 12/21/2014 J2270 MORP TAL SULFATE INJECTION 12/21/2014 J2405 ONDA NSETRON HCL INJECTION 12/21/2014 99822 ROUT INE VENIPUNCTURE 01/05/2015 J7040 NORM AL SALINE SOLUTION INFUS 01/05/2015 72750 THER /PROPH/DIAG INJ, SC/IM 02/19/2015 80902 [facility] VISIT 02/19/2015 J1885 MOI DOL SYR 30MG/ML 02/19/2015 64307 X-RA Y EXAM OF LOWER SPINE 02/26/2015 29879 X-RA Y EXAM OF PELVIS 02/26/2015 26004 [facility] VISIT 03/02/2015 73039 [facility] VISIT 03/02/2015 58774 THER /PROPH/DIAG INJ, SC/IM 03/25/2015 52022 [facility] G[facility] DEPT VISIT 03/25/2015 87450 [facility] G[facility] DEPT VISIT 03/25/2015 J1885 MOI DOL SYR 30MG/ML 03/25/2015 J2360 ORPH ENADRINE INJECTION 03/25/2015 77526 X-RA Y EXAM OF HAND 04/19/2015 01580 [facility] VISIT 04/19/2015 22592 [facility] VISIT 04/19/2015 76216 [facility] VISIT 05/17/2015 81336 CLOS URE OF SPLIT WOUND 06/06/2015 04376 [facility] G[facility]Y DEPT VISIT 06/06/2015 28128 THER /PROPH/DIAG INJ, SC/IM 07/31/2015 96004 [facility] VISIT 07/31/2015 11941 [facility] VISIT 07/31/2015 J2270 MORP TAL SULFATE INJECTION 07/31/2015 59872 [facility] G[facility] VISIT 08/02/2015 09019 ROUT INE VENIPUNCTURE 08/22/2015 30794 COMP REHEN METABOLIC PANEL 08/22/2015 80031 COMP LETE CBC W/AUTO DIFF WBC 08/22/2015 97453 BLOO D CULTURE FOR BACTERIA 08/22/2015 51914 THER /PROPH/DIAG INJ, IV PUSH 08/22/2015 92948 TX/P RO/DX INJ NEW DRUG ADDON 08/22/2015 52021 TX/P RO/DX INJ NEW DRUG SENIOR EXAMINER 08/22/2015 44747 [facility] DEPT VISIT 08/22/2015 J1170 HYDR OMORPHONE INJECTION 08/22/2015 J3370 VANC OMYCIN HCL INJECTION 08/22/2015 J7040 NORM AL SALINE SOLUTION INFUS 08/22/2015 91512 [facility] G[facility] DE[facility] VISIT 08/23/2015 32049 [facility] GENC[facility] DEPT VISIT 08/23/2015 66803 ROUT INE VENIPUNCTURE 08/26/2015 70106 ASSA Y OF VANCOMYCIN 08/26/2015 J7040 NORM AL SALINE SOLUTION INFUS 08/26/2015 61185 THER /PROPH/DIAG INJ, SC/IM 09/12/2015 84134 [facility] G[facility] DEPT VISIT 09/12/2015 96339 [facility]PT VISIT 09/12/2015 J1170 HYDR OMORPHONE INJECTION 09/12/2015 J2405 ONDA NSETRON HCL INJECTION 09/12/2015 48350 CULT R BACTERIA, EXCEPT BLOOD 09/13/2015 47866 SMEA R, GRAM STAIN 09/13/2015 57919 ROUT INE VENIPUNCTURE 09/15/2015 37862 META BOLIC PANEL TOTAL CA 09/15/2015 41972 COMP REHEN METABOLIC PANEL 09/15/2015 37958 URIN ALYSIS, AUTO W/SCOPE 09/15/2015 28296 GLYC OSYLATED HEMOGLOBIN TEST 09/15/2015 30794 BL S MEAR W/DIFF WBC COUNT 09/15/2015 89452 COMP LETE CBC, AUTOMATED 09/15/2015 19248 CULT R BACTERIA, EXCEPT BLOOD 09/15/2015 76207 CULT URE AEROBIC IDENTIFY 09/15/2015 J7040 NORM AL SALINE SOLUTION INFUS 09/15/2015 53096 THER /PROPH/DIAG IV INF, INIT 09/30/2015 J0696 CEFT RIAXONE SODM 250MG INJ 09/30/2015 J3370 VANC OMYCIN HCL INJECTION 09/30/2015 J7040 NORM AL SALINE SOLUTION INFUS 09/30/2015 31063 THER /PROPH/DIAG IV INF, INIT 10/01/2015 J1200 DIPH ENHYDRAMINE HCL INJECTIO 10/01/2015 J3370 VANC OMYCIN HCL INJECTION 10/01/2015 J7040 NORM AL SALINE SOLUTION INFUS 10/01/2015 98742 CULT URE, BACTERIA, OTHER 10/04/2015 75485 SMEA R, GRAM STAIN 10/04/2015 23115 THER /PROPH/DIAG IV INF, INIT 10/04/2015 J1200 DIPH ENHYDRAMINE HCL INJECTIO 10/04/2015 J3370 VANC OMYCIN HCL INJECTION 10/04/2015 J7040 NORM AL SALINE SOLUTION INFUS 10/04/2015 49107 THER /PROPH/DIAG IV INF, INIT 10/07/2015 J1200 DIPH ENHYDRAMINE HCL INJECTIO 10/07/2015 J3370 VANC OMYCIN HCL INJECTION 10/07/2015 J7040 NORM AL SALINE SOLUTION INFUS 10/07/2015 92980 [facility] GENCY DEPT VISIT 10/18/2015 70816 RU OSUNA OF SKIN ABSCESS 10/30/2015 34598 CULT R BACTERIA, EXCEPT BLOOD 10/30/2015 61579 SMEA R, GRAM STAIN 10/30/2015 77829 [facility] G[facility] DEPT VISIT 10/30/2015 71366 EXC TR-EXT B9+RICARDA 0.5 < CM 11/02/2015 34616 SIERRA SPEEDY, SWEAT GLAND LESION 11/02/2015 77290 SIERRA SPEEDY, SWEAT GLAND LESION 11/02/2015 12544 SPEC IAL SUPPLIES 11/02/2015 J0690 CEFA ZOLIN SODIUM INJECTION 11/02/2015 J1170 HYDR OMORPHONE INJECTION 11/02/2015 J2250 INJ MIDAZOLAM HYDROCHLORIDE 11/02/2015 J2270 MORP TAL SULFATE INJECTION 11/02/2015 J2405 ONDA NSETRON HCL INJECTION 11/02/2015 J2704 INJ, PROPOFOL, 10 MG 11/02/2015 J3010 FENT ANYL CITRATE INJECITON 11/02/2015 J7120 RING ERS LACTATE INFUSION 11/02/2015 74037 [facility] GENC[facility] DEPT VISIT 11/06/2015 25051 CULT R BACTERIA, EXCEPT BLOOD 11/12/2015 90384 CULT URE AEROBIC IDENTIFY 11/12/2015 28126 MICR OBE SUSCEPTIBLE, JANET 11/12/2015 61364 SMEA R, GRAM STAIN 11/12/2015 17934 [facility] GENCY DEPT VISIT 11/12/2015 73168 [facility] G[facility] DEPT VISIT 11/12/2015 85185 [facility]PT VISIT 11/14/2015 18682 [facility] GENCY DEPT VISIT 11/14/2015 59614 ROUT INE VENIPUNCTURE 12/15/2015 16237 META BOLIC PANEL TOTAL CA 12/15/2015 27861 COMP LETE CBC W/AUTO DIFF WBC 12/15/2015 33057 THER /PROPH/DIAG IV INF ADDON 12/15/2015 57157 TX/P RO/DX INJ NEW DRUG ADDON 12/15/2015 82094 [facility] GENC[facility] DEPT VISIT 12/15/2015 66536 [facility] G[facility] DEPT VISIT 12/15/2015 J1200 DIPH ENHYDRAMINE HCL INJECTIO 12/15/2015 J2405 ONDA NSETRON HCL INJECTION 12/15/2015 J3010 FENT ANYL CITRATE INJECITON 12/15/2015 J3370 VANC OMYCIN HCL INJECTION 12/15/2015 J7040 NORM AL SALINE SOLUTION INFUS 12/15/2015 29546 X-RA Y EXAM OF KNEE, 3 12/22/2015 61341 THER /PROPH/DIAG INJ, IV PUSH 12/22/2015 39700 [facility] GENCY DEPT VISIT 12/22/2015 24502 [facility] GENCY DEPT VISIT 12/22/2015 J3010 FENT ANYL CITRATE INJECITON 12/22/2015 21313 ROUT INE VENIPUNCTURE 12/22/2015 42092 ASSA Y OF VANCOMYCIN 12/22/2015 J1200 DIPH ENHYDRAMINE HCL INJECTIO 12/22/2015 J7040 NORM AL SALINE SOLUTION INFUS 12/22/2015 70045 ROUT INE VENIPUNCTURE 12/26/2015 98761 COMP LETE CBC W/AUTO DIFF WBC 12/26/2015 00313 FIBR IN DEGRADATION, QUANT 12/26/2015 92617 RBC SED RATE, NONAUTOMATED 12/26/2015 66379 EXTR EMITY STUDY 12/26/2015 01049 THER /PROPH/DIAG INJ, SC/IM 12/26/2015 56520 [facility] GENCY DEPT VISIT 12/26/2015 J0696 CEFT RIAXONE SODM 250MG INJ 12/26/2015 J3010 FENT ANYL CITRATE INJECITON 12/26/2015 61815 ROUT INE VENIPUNCTURE 12/31/2015 62976 COMP REHEN METABOLIC PANEL 12/31/2015 48919 COMP LETE CBC W/AUTO DIFF WBC 12/31/2015 15101 C-RE ACTIVE PROTEIN 12/31/2015 19866 [facility] GENCY DEPT VISIT 12/31/2015 13866 [facility] GENCY DEPT VISIT 12/31/2015 31265 [facility] GENCY DEPT VISIT 01/12/2016 30475 [facility] GENCY DEPT VISIT 01/29/2016 13891 [facility] GENCY DEPT VISIT 02/04/2016 32512 Offi ce or other outpatient visit for the evaluation and management of a new patient, which requires Sascha Quevedo 09/22/2016 29878 Dupl ex scan of extremity veins including responses to compression and other maneuvers; unilateral or AmSascha harp 10/05/2016 75487 Offi ce or other outpatient visit for the evaluation and management of a new patient, which requires Sascha Quevedo 10/10/2016 58896 Dupl ex scan of extremity veins including [...] NA >60 CYTOCHECK COVID-19 - 01/08/20 08:37 [id number] NOT DETECTED Not Detecte d PATHOLOGY ORDER - 01/09/20 09:18 PATHOLOGY ORDER N/A NRG Complete blood count (CBC) with automate d white blood cell (WBC) differential - 01/18/20 22:51 Blood leukocytes automated count (number/volume) 11.5 10*3/uL 4.3-11.0 Blood erythrocytes automated count (number/volume) 4.74 10*6/uL 4.35-5.85 Venous blood hemoglobin measurement (mass/volume) 13.7 g/dL 11.5-16.0 Blood hematocrit (volume fraction) 40 % 35-52 Automated erythrocyte mean corpuscular volume 84 [ foz_us] 80-99 Automated erythrocyte mean corpuscular h emoglobin (mass per erythrocyte) 29 pg 25-34 Automated erythrocyte mean corpuscular h emoglobin concentration measurement (mass/volume) 34 g/dL 32-36 Automated erythrocyte distribution width ratio 13. 1 % 10.0- 14.5 Automated blood platelet count (count/volume) 332 10*3/uL 130-400 Automated blood platelet mean volume measurement 9.4 [foz_us] 7.4-10.4 Automated blood neutrophils/100 leukocytes 59 % 42-75 Automated blood lymphocytes/100 leukocytes 31 % 12-44 Blood monocytes/100 leukocytes 7 % 0-12 Automated blood eosinophils/100 leukocytes 2 % 0-10 Automated blood basophils/100 leukocytes 1 % 0-10 Blood neutrophils automated count (number/volume) 6.8 10*3 1.8-7.8 Blood lymphocytes automated count (number/volume) 3.5 10*3 1.0-4.0 Blood monocytes automated count (number/volume) 0. 9 10*3 0.0-1.0 Automated eosinophil count 0.2 10*3/uL 0 .0-0.3 Automated blood basophil count (count/volume) 0.1 10*3/uL 0.0-0.1 Comprehensive metabolic panel - 01/18/20 22:51 Serum or plasma sodium measurement (moles/volume) 142 mmol/L 135-145 Serum or plasma potassium measurement (moles/volume) 3.7 mmol/L 3.6-5.0 Serum or plasma chloride measurement (moles/volume) 105 mmol/L 98-107 Carbon dioxide 23 mmol/L 21-32 Serum or plasma anion gap determination (moles/volume) 14 mmol/L 5-14 Serum or plasma urea nitrogen measurement (mass/volume ) 8 mg/dL 7-18 Serum or plasma creatinine measurement (mass/volume) 0.77 mg/dL 0.60-1.30 Serum or plasma urea nitrogen/creatinine mass ratio 10 NRG Serum or plasma creatinine measurement w ith calculation of estimated glomerular filtration rate > NRG Serum or plasma glucose measurement (mass/volume) 110 mg/dL 70-105 Serum or plasma calcium measurement (mass/volume) 9.3 mg/dL 8.5-10.1 Serum or plasma total bilirubin measurement (mass/volu me) 0.3 mg/dL 0.1-1.0 Serum or plasma alkaline phosphatase tomy surement (enzymatic activity/volume) 75 U/L 40-136 Serum or plasma protein measurement (mass/volume) 7.4 g/dL 6.4-8.2 Serum or plasma albumin measurement (mass/volume) 4.2 g/dL 3.2-4.5 CALCIUM CORRECTED 9.1 mg/dL 8.5-10.1 Blood lactic acid measurement (moles/vol ume) - 01/18/20 22:51 Blood lactic acid measurement (moles/volume) 1.48 mmol/L 0.50-2.00 PT panel in platelet poor plasma by coag ulation assay - 01/18/20 22:51 Prothrombin time (PT) in platelet poor plasma by coagu lation assay 12.9 s 12.2-14.7 INR in platelet poor plasma or blood by coagulation as say 0.9 0.8-1.4 Activated partial thromboplastin time (a PTT) in platelet poor plasma bycoagulation assay - 01/18/20 22:51 Activated partial thromboplastin time (a PTT) in platelet poor plasma bycoagulation assay 31 s 24-35 Radiology Report from [id number] on 09/04 14:33:00 Reason For ExamLower Extremity [...] sheath inserted. Through the sheath, a 4 Persian pigtail catheter wasplaced and advanced to the [...] Comments: IV Contrast Name: VISIPAQUE 320Dictated on workstation:[id number] Line PRELIMINARY DICTATED BY: JOSE MANUEL ECHEVARRIA MDDICTATED DT/TM: 09/04/2016 2:01 Encounters ACCT No. Visit Date/Time Discharge Status Pt. Type Provider Facility Loc./Unit Complaint [id number] 01/09/2020 06:54:00 Document Registration [id number] 01/08/2020 17:01:19 Document Registration [id number] 01/13/2020 22:16:29 0 00:41:00 DIS Emergency Angeles Mccormick [facility] ED er visit [id number] 01/05/2020 14:43:47 0 15:43:00 DIS Emergency Pam Marks [facility] ED ED Visit [id number] 12/12/2019 23:08:10 0 01:00:00 DIS Emergency Pam Marks [facility] ED ED Visit [id number] 12/02/2019 11:06:32 0 12:10:00 DIS Emergency Rosi Gatica [facility] ED ED Visit [id number] 11/30/2019 22:25:59 0 23:15:00 DIS Emergency Pam Marks [facility] ED er visit [id number] 11/24/2019 18:36:00 0 19:22:00 DIS Emergency ЮЛИЯ CHENG [facility] ED ED Visit [id number] 11/15/2019 22:30:39 0 23:14:00 DIS Emergency Pam Marks [facility] ED ED Visit [id number] 08/22/2019 21:50:09 0 07:49:00 DIS [facility]F abd cellulitis [id number] 08/25/2019 20:44:34 0 21:23:00 DIS Emergency SILVANA MERAZ [facility] ED er visit [id number] 08/21/2019 18:39:46 0 21:35:00 DIS Emergency UMA RADHA [facility] ED ER [id number] 07/25/2019 20:18:03 0 21:08:00 DIS Emergency Burton Jim [facility] ED ed visit [id number] 07/01/2019 20:36:08 9 21:44:00 DIS Emergency Mounika Cedeno [facility] ED ED Visit [id number] 06/09/2019 18:47:03 9 20:09:00 DIS Emergency ЮЛИЯ CHENG [facility] ED ed visit [id number] 06/06/2019 21:55:51 9 22:25:00 DIS Emergency SILVANA MERAZ [facility] ED ED Visit [id number] 05/26/2019 20:05:04 9 20:42:00 DIS Emergency Rosi Gatica [facility] ED ed visit [id number] 04/16/2019 20:47:48 9 10:21:00 DIS R ЮЛИЯ CHENG [facility] INF MRSA, cellulitis [id number] 04/19/2019 23:46:29 9 00:17:00 DIS Emergency SILVANA MERAZ [facility] ED ed visit [id number] 04/16/2019 00:25:08 9 06:36:00 DIS ЮЛИЯ Ahuja [facility] ED ER visit [id number] 03/24/2019 22:05:39 9 23:08:00 DIS Emergency ЮЛИЯ CHENG [facility] ED ER visit [id number] 03/11/2019 01:44:37 9 02:32:00 DIS ЮЛИЯ Ahuja [facility] ED ed visit [id number] 01/29/2019 00:06:00 9 01:40:00 DIS Emergency SILVANA MERAZ [facility] ED ed visit [id number] 12/22/2018 21:28:00 9 23:50:00 DIS Emergency ЮЛИЯ CHENG [facility] ED ER [id number] 11/06/2018 21:51:00 9 00:03:00 DIS Emergency PAM SALAS [facility] ED ed visit [id number] 10/28/2018 16:03:00 9 16:32:00 DIS Emergency Mounika Cedeno [facility] ED er visit [id number] 10/21/2018 13:00:00 9 23:59:59 CLS Outpatient YARON FLORES [facility] [id number] 09/22/2018 18:56:00 9 19:35:00 DIS Emergency Reyes Farley [facility] ED ed visit [id number] 09/03/2018 20:45:00 9 21:11:00 DIS Emergency SILVANA MERAZ [facility] ED ED VISIT [id number] 08/23/2018 10:33:38 9 23:59:59 DIS Outpatient YARON FLORES [facility] RAD xray [id number] 08/23/2018 10:00:00 9 23:59:59 DIS Outpatient YARON FLORES [facility] Orth[facility] [id number] 08/05/2018 21:19:00 9 22:01:00 DIS Emergency RADHA AN [facility] ED ed visit [id number] 08/02/2018 11:00:00 9 23:59:59 DIS Outpatient YARON FLORES [facility] [id number] 07/10/2018 00:39:00 9 01:00:00 DIS Emergency SILVANA MERAZ [facility] ED ed visit [id number] 06/22/2018 15:33:00 8 16:25:00 DIS Emergency RADHA AN [facility] ED ed visit [id number] 04/28/2018 22:37:00 8 23:59:00 DIS Emergency RADHA AN [facility] ED ER [id number] 04/24/2018 21:33:00 8 22:13:00 DIS Emergency SILVANA MERAZ [facility] ED ED visit [id number] 04/14/2018 03:21:00 8 04:06:00 DIS Emergency PAM SALAS [facility] ED ED Visit [id number] 04/06/2018 00:35:00 8 02:20:00 DIS Emergency ЮЛИЯ CHENG [facility] ED ED Visit [id number] 03/31/2018 16:21:00 8 17:05:00 DIS Emergency RADHA EATON [facility] ED ed visit [id number] 03/22/2018 22:36:00 8 00:23:00 DIS Emergency PAM SALAS [facility] ED ed visit [id number] 01/08/2018 01:43:00 8 02:35:00 DIS Emergency RADHA AN [facility] ED ER [id number] 11/21/2017 08:15:00 8 09:30:00 DIS Emergency CORTEZ HOLLAND [facility] ED ed visit [id number] 11/15/2017 15:10:00 8 16:50:00 DIS Emergency RADHA AN [facility] ED ED Visit [id number] 11/04/2017 19:40:00 8 20:26:00 DIS Emergency Rosi Gatica [facility] ED ed visit [id number] 09/02/2017 21:17:00 8 22:17:00 DIS Emergency SILVANA MERAZ [facility] ED ED visit [id number] 12/04/2016 21:20:00 7 00:20:00 DIS Emergency PAM SALAS [facility] ED interstitial cystiti s [id number] 10/19/2016 22:17:00 7 23:25:00 DIS Emergency RADHA AN [facility] ED R foot pain [id number] 10/15/2016 23:08:00 7 00:25:00 DIS Emergency Sujey Donovan [facility] ED right ankle pain [id number] 09/25/2016 10:56:00 7 11:44:00 DIS Emergency MARY HERNANDEZ [facility] ED cyst [id number] 09/21/2016 01:33:00 7 03:10:00 DIS Emergency ЮЛИЯ CHENG [facility] ED dysuria [id number] 09/15/2016 10:04:00 7 11:10:00 DIS Emergency Sujey Donovan [facility] ED lump on neck [id number] 08/24/2016 21:28:00 7 23:01:00 DIS Emergency SILVANA MERAZ [facility] ED Right leg swelling [id number] 07/11/2016 14:15:00 7 23:59:59 CLS Outpatient YARON FLORES [facility] Ortho [id number] 07/03/2016 12:39:00 6 14:43:00 DIS Emergency SILVANA MERAZ [facility] ED foot pain [id number] 02/08/2018 02:16:05 Document Registration [id number] 07/03/2016 12:43:56 Document Registration [id number] 10/05/2016 11:32:10 017 23:59:59 CLS Outpatient Sascha Quevedo [id number] 08/12/2017 10:03:37 ACT Unknown [id number] 01/07/2020 16:06:05 Document Registration [id number] 01/05/2020 16:16:35 Document Registration [id number] 07/14/2019 13:25:05 Document Registration [id number] 05/01/2019 08:50:47 Document Registration [id number] 04/14/2019 02:43:27 Document Registration [id number] 11/01/2018 14:02:52 Document Registration [id number] 07/17/2018 00:03:53 Document Registration [id number] 07/05/2018 01:21:33 Document Registration [id number] 05/28/2018 01:29:05 Document Registration [id number] 05/22/2018 15:31:01 Document Registration [id number] 03/13/2018 01:26:44 Document Registration [id number] 03/08/2018 13:40:22 Document Registration [id number] 02/15/2018 01:03:03 Document Registration [id number] 05/15/2017 14:20:00 05/15/2017 23:59:5 9 [id number] 01/07/2016 00:01:00 02/06/2016 23: 59:00 DIS Outpatient ЮЛИЯ CHENG [facility] INF [id number] 02/04/2016 14:52:00 02/04/2016 16:00 :00 DIS Emergency ЮЛИЯ FANG [facility] EMR [id number] 01/12/2016 21:06:00 01/12/2016 22:15 :00 DIS Emergency RADHA AN [facility] EMR [id number] 12/16/2015 08:16:00 01/06/2016 23: 59:00 DIS Outpatient ЮЛИЯ CHENG [facility] INF [id number] 12/30/2015 21:55:00 12/31/2015 01:30 :00 DIS Emergency PAM SALAS [facility] EMR [id number] 12/21/2015 22:53:00 12/22/2015 00:55 :00 DIS Emergency PAM SALAS [facility] EMR [id number] 12/15/2015 19:13:00 12/15/2015 23:00 :00 DIS Emergency ЮЛИЯ CHENG [facility] EMR [id number] 11/14/2015 02:54:00 11/14/2015 03:36 :00 DIS Emergency TERRY PINK [facility] EMR [id number] 11/12/2015 15:22:00 11/12/2015 16:28 :00 DIS Emergency CORTEZ HOLLAND [facility] EMR [id number] 10/08/2015 00:01:00 11/06/2015 23: 59:00 DIS Outpatient LENARD BYRD [facility] INF [id number] 11/06/2015 08:42:00 11/06/2015 09:30 :00 DIS Emergency RADHA AN [facility] EMR [id number] 11/02/2015 10:08:00 11/02/2015 15:30 :00 DIS Outpatient CATY GARZA [facility] OPS [id number] 10/30/2015 13:37:00 10/30/2015 15:14 :00 DIS Emergency SILVANA MERAZ [facility] EMR [id number] 10/18/2015 15:37:00 10/18/2015 16:15 :00 DIS Emergency SILVANA MERAZ [facility] EMR [id number] 09/25/2015 08:14:00 10/07/2015 23: 59:00 DIS Outpatient LENARD BYRD [facility] INF [id number] 10/04/2015 16:16:00 10/04/2015 16:16 :00 DIS Outpatient LENARD BYRD [facility] PANACE [id number] 09/16/2015 13:04:00 09/30/2015 08: 41:00 DIS Outpatient LENARD BYRD [facility] OBS [id number] 09/20/2015 15:11:00 09/24/2015 15:22 :00 DIS Inpatient LENARD BYRD [facility] 2F [id number] 09/13/2015 16:45:00 09/15/2015 13:30 :00 DIS Outpatient LENARD BYRD [facility] OBS [id number] 09/13/2015 17:06:00 09/13/2015 17:06 :00 DIS Outpatient LENARD BYRD [facility] PANACE [id number] 09/12/2015 21:43:00 09/12/2015 22:50 :00 DIS Emergency PAM SALAS [facility] EMR [id number] 09/07/2015 09:07:00 09/07/2015 14:35 :00 DIS Outpatient CATY GARZA [facility] OPS [id number] 08/22/2015 13:02:00 08/26/2015 16: 27:00 DIS Outpatient ЮЛИЯ CHENG [facility] OBS [id number] 08/23/2015 16:52:00 08/23/2015 17:25 :00 DIS Emergency CORTEZ HOLLAND [facility] EMR [id number] 08/21/2015 21:57:00 08/22/2015 02:08 :00 DIS Emergency ЮЛИЯ CHENG [facility] EMR [id number] 08/14/2015 03:48:00 08/14/2015 04:49 :00 DIS Emergency SILVANA MERAZ [facility] EMR [id number] 08/12/2015 08:44:00 08/12/2015 13:25 :00 DIS Outpatient CATY GARZA [facility] OPS [id number] 08/02/2015 01:03:00 08/02/2015 01:40 :00 DIS Emergency SILVANA MERAZ [facility] EMR [id number] 07/31/2015 17:36:00 07/31/2015 18:20 :00 DIS Emergency PAM SALAS [facility] EMR [id number] 07/19/2015 10:48:00 07/19/2015 14:40 :00 DIS Inpatient CATY GARZA [facility] OPS [id number] 07/04/2015 16:07:00 07/04/2015 16:33 :00 DIS Emergency RADHA AN Lilly [facility] EMR [id number] 06/30/2015 11:51:00 06/30/2015 15:00 :00 DIS Inpatient CATY GARZA [facility] OPS [id number] 06/18/2015 08:44:00 06/18/2015 12:30 :00 DIS Inpatient CATY GARZA [facility] OPS [id number] 06/06/2015 01:07:00 06/06/2015 01:55 :00 DIS Emergency PRATIK MARKS [facility] EMR [id number] 06/02/2015 08:15:00 06/02/2015 14:15 :00 DIS Inpatient CATY GARZA [facility] OPS [id number] 05/30/2015 19:36:00 05/30/2015 20:22 :00 DIS Emergency CAROLEE WHITE [facility] EMR [id number] 05/21/2015 21:32:00 05/21/2015 23:12 :00 DIS Emergency SILVANA MERAZ [facility] EMR [id number] 05/17/2015 15:46:00 05/17/2015 18:48 :00 DIS Emergency JULIO NAQVI [facility] EMR [id number] 05/08/2015 22:38:00 05/08/2015 23:30 :00 DIS Emergency NATALIYARADHA Lilly [facility] EMR [id number] 04/29/2015 13:47:00 04/30/2015 15:20 :00 DIS Inpatient CATY GARZA [facility] OBS [id number] 04/29/2015 09:40:00 04/29/2015 12:45 :00 DIS Outpatient GREG CATY Lilly [facility] OPS [id number] 04/01/2015 08:45:00 04/01/2015 13:00 :00 DIS Inpatient GREGCATY KAY Lilly [facility] OPS [id number] 03/25/2015 21:10:00 03/25/2015 21:30 :00 DIS Emergency ЮЛИЯ FANG [facility] EMR [id number] 03/14/2015 02:31:00 03/14/2015 03:38 :00 DIS Emergency BEHZAD HERNANDEZ [facility] EMR [id number] 03/02/2015 18:23:00 03/02/2015 20:09 :00 DIS Emergency RADHA AN [facility] EMR [id number] 03/01/2015 23:56:00 03/02/2015 00:20 :00 DIS Emergency RADHA AN [facility] EMR [id number] 02/26/2015 10:28:00 02/26/2015 10:28 :00 DIS Outpatient RACHEL NUÑEZ [facility] RAD [id number] 02/25/2015 08:40:00 02/25/2015 11:45 :00 DIS Outpatient CATY GARZA [facility] OPS [id number] 02/18/2015 23:32:00 02/19/2015 00:04 :00 DIS Emergency RADHA AN [facility] EMR [id number] 01/06/2015 00:01:00 02/05/2015 23: 59:00 DIS Outpatient CATY GARZA [facility] EMR [id number] 01/19/2015 00:27:00 01/19/2015 01:13 :00 DIS Emergency JOSE MANUEL MOORE [facility] EMR [id number] 01/15/2015 00:46:00 01/15/2015 01:20 :00 DIS Emergency ЮЛИЯ FANG [facility] EMR [id number] 12/17/2014 19:38:00 01/05/2015 23: 59:00 DIS Outpatient CATY GARZA [facility] EMR [id number] 12/26/2014 02:14:00 12/26/2014 03:35 :00 DIS Emergency RADHA AN [facility] EMR [id number] 12/23/2014 06:30:00 12/23/2014 10:10 :00 DIS Outpatient CATY GARZA [facility] OPS [id number] 12/21/2014 22:07:00 12/21/2014 23:00 :00 DIS Emergency CORTEZ HOLLAND [facility] EMR [id number] 12/19/2014 09:59:00 12/19/2014 12:13 :00 DIS Emergency SILVANA MERAZ Keesha [facility] EMR [id number] 11/05/2014 10:05:00 11/05/2014 14:45 :00 DIS Inpatient GREGCATY KAY [facility] OPS [id number] 10/27/2014 15:17:00 10/27/2014 17:32 :00 DIS Emergency KT SILVANA Thao [facility] EMR [id number] 10/07/2014 00:01:00 10/22/2014 11: 40:00 DIS Outpatient DILCAROLEE GRAF [facility] PT [id number] 10/21/2014 16:58:00 10/21/2014 18:12 :00 DIS Emergency AMALIACORTEZ Keesha [facility] EMR [id number] 10/21/2014 07:10:00 10/21/2014 10:30 :00 DIS Outpatient GREGCATY KAY [facility] OPS [id number] 10/16/2014 00:46:00 10/16/2014 01:40 :00 DIS Emergency SHOSHANABABSRachidSILVANA Keesha [facility] EMR [id number] 09/06/2014 00:01:00 10/06/2014 23: 59:00 DIS Outpatient DILLOWCAROLEE [facility] INF [id number] 09/06/2014 00:01:00 10/06/2014 23: 59:00 DIS Outpatient DILLOWCAROLEE [facility] PT [id number] 09/29/2014 08:35:00 09/29/2014 12:25 :00 DIS Inpatient GREGCATY KAY [facility] OPS [id number] 08/20/2014 08:20:00 08/20/2014 14:00 :00 DIS Inpatient GREGCATY KAY [facility] OPS [id number] 07/14/2014 08:10:00 07/14/2014 13:10 :00 DIS Outpatient CATY GARZA [facility] OPS [id number] 06/26/2014 08:50:00 06/26/2014 12:45 :00 DIS Inpatient CATY GARZA [facility] OPS [id number] 06/10/2014 14:24:00 06/17/2014 03: 55:00 DIS Outpatient DAYNA MOSER Rigo [facility] OBS [id number] 06/08/2014 19:55:00 06/08/2014 20:15 :00 DIS Emergency EVERARDORIMARY [facility] EMR [id number] 03/19/2014 12:55:00 03/19/2014 12:55 :00 DIS Outpatient BOBBYROYCECADE DENIS [facility] RAD [id number] 11/06/2013 00:01:00 12/06/2013 23: 59:00 DIS Outpatient DILLOWCAROLEE [facility] INF [id number] 10/30/2013 08:47:00 11/05/2013 23: 59:00 DIS Outpatient DILLOWCAROLEE [facility] INF [id number] 10/29/2013 20:49:00 10/30/2013 01:38 :00 DIS Emergency DILCAROLEE GRAF [facility] EMR [id number] 10/26/2013 01:30:00 10/28/2013 13:30 :00 DIS Inpatient DILCAROLEE GRAF [facility] 2F [id number] 10/17/2013 18:47:00 10/17/2013 19:43 :00 DIS Emergency JOSE MANUEL MOORE [facility] EMR [id number] 10/07/2013 06:40:00 10/07/2013 10:30 :00 DIS Inpatient CATY GARZA [facility] OPS [id number] 01/29/2016 22:24:00 Document Registration [id number] 12/26/2015 16:49:00 Document Registration [id number] 06/07/2015 00:00:00 Document Registration [id number] 06/07/2015 00:00:00 Document Registration [id number] 06/07/2015 00:00:00 Document Registration [id number] 06/07/2015 00:00:00 Document Registration [id number] 06/07/2015 00:00:00 Document Registration [id number] 06/07/2015 00:00:00 Document Registration [id number] 06/07/2015 00:00:00 Document Registration [id number] 04/18/2015 23:40:00 Document Registration [id number] 08/17/2014 10:38:16 Document Registration [id number] 08/06/2014 21:35:00 Document Registration [id number] 06/07/2014 00:00:00 Document Registration [id number] 06/07/2014 00:00:00 Document Registration [id number] 06/07/2014 00:00:00 Document Registration [id number] 10/02/2013 14:25:42 Document Registration [id number] 06/07/2013 00:00:00 Document Registration [id number] 06/07/2013 00:00:00 Document Registration [id number] 06/07/2013 00:00:00 Document Registration [id number] 06/07/2013 00:00:00 Document Registration [id number] 06/07/2013 00:00:00 Document Registration [id number] 06/07/2013 00:00:00 Document Registration [id number] 09/04/2016 09:39:00 Document Registration [id number] 09/04/2016 09:39:00 017 17:05:00 DIS Outpatient Ammar,Sascha [facility] F3E Lower Extremity Swel ling [id number] 08/30/2016 11:20:00 017 23:59:00 DIS Outpatient Ammar,Sascha [facility] Non-Invas bilateral lower extremity swelling [id number] 2015 01:47:00 016 03:40:00 DIS Emergency Francis Melgar [facility] ED MRSA [id number] 09/05/2016 05:16:01 Document Registration [id number] 2015 05:17:24 Document Registration [id number] 01/18/2020 23:07:00 Document Registration [id number] 01/13/2020 11:35:39 01/13/2020 23:59: 59 CLS Outpatient Docena, Andres [id number] 01/05/2020 11:47:18 01/05/2020 23:59: 59 CLS Outpatient Docena, Andres [id number] 12/22/2019 11:39:54 12/22/2019 23:59: 59 CLS Outpatient Docena, Andres [id number] 12/15/2019 16:00:09 12/15/2019 23:59: 59 CLS Outpatient Julien, Elio [id number] 12/12/2019 14:19:00 12/12/2019 23:59: 59 CLS Outpatient Julien, Elio [id number] 12/10/2019 14:30:12 12/10/2019 23:59: 59 CLS Outpatient Docena, Andres [id number] 11/20/2019 09:37:56 11/20/2019 23:59: 59 CLS Outpatient HEENA, ANDRES Thao [id number] 10/15/2019 11:05:52 10/15/2019 23:59: 59 CLS Outpatient Docena, Andres [id number] 08/27/2019 11:26:02 08/27/2019 23:59: 59 CLS Outpatient Docena, Andres [id number] 08/20/2019 11:12:50 08/20/2019 23:59: 59 CLS Outpatient Docena, Andres [id number] 08/04/2019 12:16:12 08/04/2019 23:59: 59 CLS Outpatient Docena, Andres [id number] 07/28/2019 16:39:39 07/28/2019 23:59: 59 CLS Outpatient Docena, Andres [id number] 07/22/2019 11:04:15 07/22/2019 23:59: 59 CLS Outpatient Docena, Andres [id number] 07/18/2019 17:26:36 07/18/2019 23:59: 59 CLS Outpatient Docena, Andres [id number] 07/14/2019 11:31:58 07/14/2019 23:59: 59 CLS Outpatient Docena, Andres [id number] 06/16/2019 16:08:49 06/16/2019 23:59: 59 CLS Outpatient Docena, Andres [id number] 04/21/2019 15:17:16 04/21/2019 23:59: 59 CLS Outpatient ANDRES NAIK Keesha [id number] 04/02/2019 15:55:06 04/02/2019 23:59: 59 CLS Outpatient Docena, Andres [id number] 03/24/2019 15:12:29 03/24/2019 23:59: 59 CLS Outpatient ANDRES NAIK [id number] 02/24/2019 14:03:00 02/24/2019 23:59: 59 CLS Outpatient Elio Julien [id number] 01/21/2019 14:04:21 01/21/2019 23:59: 59 CLS Outpatient ANDRES NAIK Keesha [id number] 01/06/2019 12:03:58 01/06/2019 23:59: 59 CLS Outpatient Docena, Andres [id number] 10/31/2018 12:42:08 10/31/2018 23:59: 59 CLS Outpatient Dayna Moser Rigo [id number] 10/30/2018 10:56:38 10/30/2018 23:59: 59 CLS Outpatient Docena, Andres [id number] 10/29/2018 15:11:16 10/29/2018 23:59: 59 CLS Outpatient Docena, Andres [id number] 09/25/2018 11:47:45 09/25/2018 23:59: 59 CLS Outpatient Docena, Andres [id number] 08/06/2018 14:36:11 08/06/2018 23:59: 59 CLS Outpatient Docena, Andres [id number] 07/23/2018 10:59:25 07/23/2018 23:59: 59 CLS Outpatient Docena, Andres [id number] 07/19/2018 14:44:40 07/19/2018 23:59: 59 CLS Outpatient Docena, Andres [id number] 07/15/2018 16:42:14 07/15/2018 23:59: 59 CLS Outpatient Docena, Andres [id number] 07/12/2018 11:38:33 07/12/2018 23:59: 59 CLS Outpatient Docena, Andres [id number] 07/03/2018 11:55:14 07/03/2018 23:59: 59 CLS Outpatient Docena, Andres [id number] 06/24/2018 14:06:03 06/24/2018 23:59: 59 CLS Outpatient Docena, Andres [id number] 06/21/2018 11:11:33 06/21/2018 23:59: 59 CLS Outpatient Docena, Andres [id number] 06/11/2018 10:10:36 06/11/2018 23:59: 59 CLS Outpatient Docena, Andres [id number] 06/04/2018 10:05:01 06/04/2018 23:59: 59 CLS Outpatient HEENA, ANDRES Keesha [id number] 05/27/2018 14:52:09 05/27/2018 23:59: 59 CLS Outpatient Docena, Andres [id number] 05/24/2018 09:33:38 05/24/2018 23:59: 59 CLS Outpatient Docena, Anrdes [id number] 05/22/2018 15:13:06 05/22/2018 23:59: 59 CLS Outpatient Docena, Andres [id number] 04/23/2018 15:36:13 04/23/2018 23:59: 59 CLS Outpatient HEENA, ANDRES Keesha [id number] 04/16/2018 09:41:39 04/16/2018 23:59: 59 CLS Outpatient HEENAANDRES Keesha [id number] 04/08/2018 14:46:37 04/08/2018 23:59: 59 CLS Outpatient Docena, Andres [id number] 04/02/2018 16:25:13 04/02/2018 23:59: 59 CLS Outpatient Docena, Andres [id number] 03/26/2018 09:54:08 03/26/2018 23:59: 59 CLS Outpatient Docena, Andres [id number] 03/15/2018 11:49:20 03/15/2018 23:59: 59 CLS Outpatient Docena, Andres [id number] 03/12/2018 11:01:38 03/12/2018 23:59: 59 CLS Outpatient Docena, Andres [id number] 03/05/2018 10:06:58 03/05/2018 23:59: 59 CLS Outpatient Docena, Andres [id number] 01/30/2018 14:22:25 01/30/2018 23:59: 59 CLS Outpatient Docena, Andres [id number] 01/18/2018 10:41:38 01/18/2018 23:59: 59 CLS Outpatient HEENAANDRES Keesha [id number] 09/08/2013 21:52:11 09/08/2013 23:59: 59 CLS Outpatient Keesha Ojeda
[2020-01-18 23:44] LABS: AMORPHOUS SEDIMENT,UR LARGE AMOR PHOSPHATE /LPF; BACTERIA,URINE TRACE /HPF
[2020-01-18] MEDS ORDERED: IOHEXOL 350 MG/ML 100 ML (OMNIPAQUE 350) VIAL IV ONE (23:45)
[2020-01-18] MEDS ORDERED: NS 100 ML (IVPB) BAG IV ONE (23:45)
[2020-01-19] MEDS ORDERED: HYDROmorphone 2 MG/ML VIAL (DILAUDID) IV ONE (00:15)
[2020-01-19 00:35] VITALS: BP 144/79
--- NOTE | 2020-01-19 07:06 | Diagnostic Imaging Report ---
HISTORY: Postsurgical abdominal pain COMPARISON: None TECHNIQUE: Frontal view of the chest FINDINGS: Lung volumes are low. No focal consolidation is seen. There is no pleural effusion or pneumothorax. The cardiac silhouette is normal in size. IMPRESSION: 1. Low lung volumes with no acute pulmonary abnormality seen. Dictated by: Dictated on workstation # [id number]
--- NOTE | 2020-01-19 07:10 | Diagnostic Imaging Report ---
PROCEDURE: CT abdomen and pelvis with contrast. TECHNIQUE: Multiple contiguous axial images were obtained through the abdomen and pelvis after administration of intravenous contrast. Auto Exposure Controls were utilized during the CT exam to meet ALARA standards for radiation dose reduction. INDICATION: Postsurgical abdominal pain COMPARISON: Outside CT from 08/18/2016 FINDINGS: The lung bases are clear. The heart is normal in size. The liver appears somewhat low in density which may represent fatty infiltration. Cholecystectomy clips are noted. The spleen appears normal. The pancreas is normal. The adrenal glands are normal. The kidneys demonstrate no acute abnormality. No free fluid or free air is seen. No intraperitoneal fluid collections are seen. The bowel loops are nondistended without obstruction. The appendix appears normal. There is moderate edema in the subcutaneous fat of the anterior left abdomen. There are small foci of air. Skin john are noted anteriorly. There is a small pocket of fluid with a rim enhancement in the anterior left subcutaneous fat measuring up to 3.4 x 1.5 cm, likely a seroma. No acute osseous abnormality is seen. IMPRESSION: 1. Postsurgical changes in the anterior lower abdominal subcutaneous fat, including edema, subcutaneous air, and seroma. No acute intra-abdominal abnormality is identified. Dictated by: Dictated on workstation # [id number]
== END 2020-01-19 00:35 | disposition home or self-care (01) ==
LOC: EDUNIT# 22:38 → ER 22:39
DX: G89.18 Other acute postprocedural pain (principal); R10.30 Lower abdominal pain, unspecified; F17.200 Nicotine dependence, unspecified, uncomplicated; Z88.0 Allergy status to penicillin; Z88.2 Allergy status to sulfonamides; Z88.1 Allergy status to other antibiotic agents; Z88.6 Allergy status to analgesic agent; Z91.040 Latex allergy status; Z88.5 Allergy status to narcotic agent
CPT/HCPCS: 36415; 71045; 74177; 80053; 81000; 83605; 85025; 85610; 85730; 87040; 87088

== ENCOUNTER 2020-03-24 21:56 | Emergency (ER) | payer MEDICAID ==
[~2020-03-24] VITALS: Ht 170.2 cm; Wt 106.4 kg
[2020-03-24 22:04] VITALS: BP 122/76
[2020-03-24] MEDS ORDERED: RX-HYDROCODONE/APAP 5/325 MG #4 TAB PK PO PRN (22:15)
--- NOTE | 2020-03-24 22:16 | ED Upper Extremity ---
General Chief Complaint: Upper Extremity Stated Complaint: L HAND PAIN & SWELLING Source: patient Exam Limitations: no limitations History of Present Illness Date Seen by Provider: Mar 24, 2020 Time Seen by Provider: 22:14 Initial Comments To ER with left wrist burning and pain that starts in the volar mid left wrist and extends all the way down the pointer middle and ring finger on the volar/palmar side. She had carpal tunnel surgery done by Dr. Murray in [place] one week ago. She felt this popping/burning sensation suddenly this evening when she was opening a door. Onset: just prior to arrival Pain/Injury Location: left wrist, left hand Modifying Factors: Worse With Movement Allergies and Home Medications Allergies Coded Allergies: Penicillins (Verified Allergy, Unknown, 01/18/20) Sulfa (Sulfonamide Antibiotics) (Verified Allergy, Unknown, 01/18/20) azithromycin (Verified Allergy, Unknown, 01/18/20) ketorolac (Verified Allergy, Unknown, 01/18/20) latex (Verified Allergy, Unknown, 01/18/20) tramadol (Verified Allergy, Unknown, 01/18/20) Patient Home Medication List Home Medication List Reviewed: Yes Review of Systems Constitutional: see HPI EENTM: see HPI Respiratory: no symptoms reported Cardiovascular: no symptoms reported Genitourinary: no symptoms reported Musculoskeletal: see HPI Skin: no symptoms reported Psychiatric/Neurological: No Symptoms Reported Past Gelqtku-Ewxyuf-Jbdfvx Hx Patient Social History Recent Foreign Travel: No Contact w/Someone Who Travel: No Recent Hopitalizations: No Immunizations Up To Date Tetanus Booster (TDap): Less than 5yrs PED Vaccines UTD: Yes Past Medical History Surgeries: Yes (multiple surgeries for hidradenitis axilla, groin and low pannus) Gallbladder, Hysterectomy Respiratory: No Cardiac: No Neurological: No Genitourinary: No Gastrointestinal: No Musculoskeletal: No Endocrine: No HEENT: No Cancer: No Psychosocial: No Integumentary: Yes (hidradenitis) Blood Disorders: No Family Medical History No Pertinent Family Hx Physical Exam Vital Signs Capillary Refill : Height, Weight, BMI Height: '" Weight: lbs. oz. kg; 37.00 BMI Method: General Appearance: WD/WN, no apparent distress Respiratory: no respiratory distress, no accessory muscle use Wrist: Yes normal inspection, Yes soft tissue tenderness (3 sutures remain intact Lein and dry without erythema or drainage. No ecchymosis. No visible swelling.) Neurologic/Psychiatric: alert, normal mood/affect, oriented x 3 Skin: normal color, warm/dry Progress/Results/Core Measures Results/Orders My Orders Orders - JOHN MONSALVE APRN Rx-Hydrocodone/Apap 5-325 Mg (Rx-Vicodin (03/24/20 22:15) Departure Impression Primary Impression: Postoperative pain Disposition: HOME, SELF-CARE Condition: Stable Departure-Patient Inst. Decision time for Depature: 22:15 Referrals: NO,LOCAL PHYSICIAN (Family) Primary Care Physician Patient Instructions: Postoperative Pain (DC) Add. Discharge Instructions: 1. Return to ER for any concerns 2. Follow-up with Dr. Murray. Call tomorrow. All discharge instructions reviewed with patient and/or family. Voiced understanding. JOHN MONSALVE APRN Mar 24, 2020 22:16
== END 2020-03-24 22:45 | disposition home or self-care (01) ==
LOC: EDUNIT# 21:56 → ER 21:59
DX: G89.18 Other acute postprocedural pain (principal); M25.532 Pain in left wrist; Z88.0 Allergy status to penicillin; Z88.2 Allergy status to sulfonamides; Z88.1 Allergy status to other antibiotic agents; Z91.040 Latex allergy status; Z88.5 Allergy status to narcotic agent; Z88.6 Allergy status to analgesic agent
CPT/HCPCS: 99283

== ENCOUNTER 2020-03-30 02:12 | Emergency (ER) | payer MEDICAID ==
[~2020-03-30] VITALS: Ht 170 cm; Wt 112.4 kg
[2020-03-30] MEDS ORDERED: PRD20T PO (02:51)
--- NOTE | 2020-03-30 02:52 | ED Upper Extremity ---
General Chief Complaint: Upper Extremity Stated Complaint: LEFT HAND SWELLING History of Present Illness Date Seen by Provider: Mar 30, 2020 Time Seen by Provider: 02:39 Initial Comments PT HAD LEFT CARPAL TUNNEL SURGERY AT [place] ALMOST [address] CARDONA C/O PAIN TO SITE STATES IT ALSO FEELS SWOLLEN--STITCHES FEEL TIGHT NO DRAINAGE NO REDNESS NO STREAKS NO FEVER NO INJURY TO THE AREA SINCE SHE HAD SURGERY PT IS RIGHT HANDED SEEN HERE LAST SUNDAY FOR THIS SAME PROBLEM, PLACED IN WRIST SPLINT AND GIVEN TAKE HOME PACK OF HYDROCODONE--STATES SHE RAN OUT SUNDAY MORNING 03/29/[address] DR[address] CARDONA ON SUNDAY PT HAS BEEN HERE JANUARY 17 --TWICE--FOR C/O POST OP PAIN, AND AGAIN 03/24/20 FOR C/O POST OP PAIN PCP: ELVIS NAIK AT [facility] IN [place] ORTHOPEDIC SURGEON: DR. CARDONA, IN [place] PT LIVES IN [place], [place] WANTS RX'S TO GO TO [facility] IN [place]. Allergies and Home Medications Allergies Coded Allergies: Penicillins (Verified Allergy, Unknown, 01/18/20) Sulfa (Sulfonamide Antibiotics) (Verified Allergy, Unknown, 01/18/20) azithromycin (Verified Allergy, Unknown, 01/18/20) ketorolac (Verified Allergy, Unknown, 01/18/20) latex (Verified Allergy, Unknown, 01/18/20) tramadol (Verified Allergy, Unknown, 01/18/20) Home Medications Prednisone 20 Mg Tab, 40 MG PO DAILY Prescribed by: WAYNE SMITH on 03/30/20 0251 Patient Home Medication List Home Medication List Reviewed: Yes Review of Systems Constitutional: no symptoms reported; No fever Musculoskeletal: see HPI Skin: see HPI Psychiatric/Neurological: Other (LEFT MIDDLE FINGER TIP FEELS NUMB) Past Mrzhghw-Ukuwhr-Umgeae Hx Past Med/Social Hx: Reviewed and Corrections made Patient Social History Alcohol Use: Denies Use Recreational Drug Use: No Smoking Status: Current Everyday Smoker Type Used: Cigarettes Recent Foreign Travel: No Contact w/Someone Who Travel: No Recent Hopitalizations: No Physical Abuse: No Sexual Abuse: No Mistreated: No Fear: No Immunizations Up To Date Tetanus Booster (TDap): Less than 5yrs PED Vaccines UTD: Yes Past Medical History Surgeries: Yes (multiple surgeries for hidradenitis, CARPAL TUNNEL BILAT WRIST) Gallbladder, Hysterectomy, Orthopedic Respiratory: No Cardiac: No Neurological: No Genitourinary: No Gastrointestinal: No Musculoskeletal: Yes (BILATERAL CARPAL TUNNEL REPAIR) Endocrine: No HEENT: No Cancer: No Psychosocial: No Integumentary: Yes (hidradenitis) Blood Disorders: No Family Medical History No Pertinent Family Hx Physical Exam Vital Signs Vital Signs - First Documented 03/30/20 02:30 Temp 35.7 Pulse 77 Resp 20 B/P (MAP) 150/107 (121) Pulse Ox 98 Capillary Refill : Height, Weight, BMI Height: '" Weight: lbs. oz. kg; 36.00 BMI Method: General Appearance: WD/WN, obese, other (TALKS RAPIDLY NON-STOP, HOLDING LEFT WRIST VERY TIGHTLY AND CLENCHING IT TIGHTLY TO HER CHEST. ) Hand: Left (LEFT HAND--SURGICAL SITE IS CLEAN/DRY/SUTURES INTACT. MILD SWELLING TO PALM. NO REDNESS, NO DRAINAGE, NO STREAKS. HAS FULL ROM, SENSORY/VASCULAR INTACT. ) Neurologic/Psychiatric: no motor/sensory deficits, alert, oriented x 3 Skin: normal color, warm/dry Progress/Results/Core Measures Results/Orders My Orders Orders - WAYNE SMITH DO Prednisone Tablet (Deltasone Tablet) (03/30/20 03:00) Departure Impression Primary Impression: Post-op pain Additional Impression: S/P LEFT CARPAL TUNNEL REPAIR Disposition: HOME, SELF-CARE Condition: Stable Departure-Patient Inst. Referrals: ANDRES NAIK (PCP) Primary Care Physician NO,LOCAL PHYSICIAN (Family) Primary Care Physician Patient Instructions: Postoperative Pain (DC) Add. Discharge Instructions: ICE TO AREA AT 20 MINUTE INTERVALS ELEVATE HAND MUCH POSSIBLE WEAR WRIST SPLINT FOR COMFORT FOLLOW UP WITH YOUR SURGEON ON SUNDAY SCHEDULED All discharge instructions reviewed with patient and/or family. Voiced understanding. Scripts Prednisone (Prednisone) 20 Mg Tab 40 MG PO DAILY, #4 TAB 0 Refills Prov: WAYNE SMITH DO 03/30/20 WAYNE SMITH DO Mar 30, 2020 02:51
[2020-03-30] MEDS ORDERED: predniSONE 20 MG TAB PO ONE (03:00)
[2020-03-30 03:01] VITALS: BP 152/85
== END 2020-03-30 03:01 | disposition home or self-care (01) ==
LOC: EDUNIT# 02:12 → ER 02:15
DX: G89.18 Other acute postprocedural pain (principal); E66.9 Obesity, unspecified; F17.210 Nicotine dependence, cigarettes, uncomplicated; Z68.36 Body mass index [BMI] 36.0-36.9, adult; Z88.0 Allergy status to penicillin; Z88.2 Allergy status to sulfonamides; Z88.5 Allergy status to narcotic agent; Z88.1 Allergy status to other antibiotic agents; Z91.040 Latex allergy status; Z79.52 Long term (current) use of systemic steroids; Z98.890 Other specified postprocedural states
CPT/HCPCS: 99283

== ENCOUNTER 2020-04-24 00:12 | Emergency (ER) | payer MEDICAID ==
[~2020-04-24] VITALS: Ht 170 cm; Wt 113.2 kg
[~2020-04-24 00:12] MED LIST: PRD20T PO
[2020-04-24 00:35] VITALS: BP 160/110
--- NOTE | 2020-04-24 00:37 | ED Hip Pain/Injury ---
General Chief Complaint: Hip/Pelvic Problems Stated Complaint: LEFT HIP PAIN-FALL Source: patient History of Present Illness Date Seen by Provider: Apr 24, 2020 Time Seen by Provider: 00:28 Initial Comments PT ARRIVES VIA POV STATES AROUND 1800 TONIGHT, SHE FELL APPROXIMATELY 5' OFF WOODEN PLAYGROUND EQUIPMENT AT SISTER IN LAW'S HOUSE HERE IN [place] STATES SHE LANDED ON HER LEFT HIP DENIES HITTING HER HEAD OR ANY OTHER INJURIES STATES SHE HAD SURGERY TO LEFT GROIN 3 MONTHS AGO FOR HYDRADENITIS, AND C/O PAIN TO LEFT HIP AND PAIN ALONG INCISION. NO OPENING OF THE INCISION NO PARESTHESIAS OR MOTOR DEFICITS NO PRIOR INJURY TO THIS HIP HAS NOT TAKEN ANYTHING FOR PAIN PT HAS BEEN HERE MULTIPLE TIMES FOR VARIOUS PAIN COMPLAINTS--ALL WITH "POST OP PAIN" COMPLAINTS PT STATES SHE LIVES IN [place], [place] STATES SHE IS HERE "4 DAYS A WEEK WITH MY KID" PCP EVLIS NAIK AT [facility] IN [facility] RX'S TO GO TO [facility] IN [place] Allergies and Home Medications Allergies Coded Allergies: Penicillins (Verified Allergy, Unknown, 01/18/20) Sulfa (Sulfonamide Antibiotics) (Verified Allergy, Unknown, 01/18/20) azithromycin (Verified Allergy, Unknown, 01/18/20) ketorolac (Verified Allergy, Unknown, 01/18/20) latex (Verified Allergy, Unknown, 01/18/20) tramadol (Verified Allergy, Unknown, 01/18/20) Home Medications Prednisone 20 Mg Tab, 40 MG PO DAILY Prescribed by: WAYNE SMITH on 03/30/20 0251 Prednisone 20 Mg Tab, 40 MG PO DAILY Prescribed by: WAYNE SMITH on 04/24/20 0058 Patient Home Medication List Home Medication List Reviewed: Yes Review of Systems Constitutional: no symptoms reported Respiratory: no symptoms reported Cardiovascular: no symptoms reported Gastrointestinal: no symptoms reported Genitourinary: no symptoms reported : No (S/P HYST/BSO) Musculoskeletal: see HPI Skin: no symptoms reported Psychiatric/Neurological: No Symptoms Reported Past Kanubii-Ebfuwu-Ecgrsw Hx Past Med/Social Hx: Reviewed and Corrections made Patient Social History Alcohol Use: Denies Use Recreational Drug Use: No Smoking Status: Current Everyday Smoker Type Used: Cigarettes Recent Foreign Travel: No Contact w/Someone Who Travel: No Recent Hopitalizations: No Immunizations Up To Date Tetanus Booster (TDap): Less than 5yrs PED Vaccines UTD: Yes Past Medical History Surgeries: Yes (multiple surgeries for hidradenitis, CARPAL TUNNEL BILAT WRIST) Gallbladder, Hysterectomy, Orthopedic Respiratory: No Cardiac: No Neurological: No 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 oz. kg; 38.00 BMI Method: General Appearance: No Apparent Distress, WD/WN, Obese, Other (WALKS WITH SLIGHT LIMP) Neck: Normal Inspection, Non Tender Cardiovascular: Regular Rate, Rhythm, Normal Peripheral Pulses Respiratory: Chest Non Tender Gastrointestinal: Non Tender, Soft Back: Normal Inspection, No CVA Tenderness, No Vertebral Tenderness Extremity: No Pedal Edema, Other (TENDERNESS TO LEFT HIP AND GROIN AREA. PREVIOUS SURGICAL INCISION SCAR IS INTACT. 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 Diagnostic Imaging Comments XRAYS PELVIS AND LEFT HIP--NO ACUTE PROCESS, PENDING RADIOLOGIST REVIEW Departure Impression Primary Impression: Contusion of left hip Disposition: 01 HOME, SELF-CARE Condition: Stable Departure-Patient Inst. Referrals: ANDRES NAIK (PCP/Family) Primary Care Physician Patient Instructions: Contusion (DC) Add. Discharge Instructions: ALTERNATE ICE AND HEAT TO SORE AREA AT 20 MINUTE INTERVALS TYLENOL NEEDED FOR PAIN FOLLOW UP WITH YOUR DR IN 4-5 DAYS IF NO BETTER All discharge instructions reviewed with patient and/or family. Voiced understanding. Scripts Prednisone (Prednisone) 20 Mg Tab 40 MG PO DAILY, #6 TAB 0 Refills Prov: WAYNE SMITH DO 04/24/20 WAYNE SMITH DO Apr 24, 2020 00:37
[2020-04-24] MEDS ORDERED: PRD20T PO (00:58)
[2020-04-24] MEDS ORDERED: predniSONE 20 MG TAB PO ONE (01:00)
--- NOTE | 2020-04-24 07:31 | Diagnostic Imaging Report ---
EXAMINATION: Pelvis, single view. Left hip, 2 additional views. COMPARISON: None. HISTORY: 29-year-old female, pelvic and left hip pain after fall. FINDINGS: The pubic symphysis and sacroiliac joints are normally aligned. The right hip is not obviously dislocated. The left hip is not dislocated. There is no joint space loss of either hip, osteophyte formation, or subchondral cystic change. There is no identified acute fracture. There are surgical clips in the region of the right and left adnexa. IMPRESSION: 1. No acute bony abnormality of the pelvis or left hip. Dictated by: Dictated on workstation # [id number]
== END 2020-04-24 01:03 | disposition home or self-care (01) ==
LOC: EDUNIT# 00:12 → ER 00:15
DX: S70.02XA Contusion of left hip, initial encounter (principal); E66.9 Obesity, unspecified; Z68.38 Body mass index [BMI] 38.0-38.9, adult; F17.210 Nicotine dependence, cigarettes, uncomplicated; Z88.0 Allergy status to penicillin; Z88.2 Allergy status to sulfonamides; Z88.1 Allergy status to other antibiotic agents; Z91.040 Latex allergy status; Z88.5 Allergy status to narcotic agent; Z79.52 Long term (current) use of systemic steroids; W09.8XXA Fall on or from other playground equipment, initial encounter

== ENCOUNTER 2020-05-09 20:53 | Emergency (ER) | payer MEDICAID ==
--- NOTE | 2020-05-09 21:25 | NUR ---
PT CALLED FOR TRIAGE AND NO ONE PRESENTED TO STAFF. REGISTRATION STATED PT SAID SHE WAS GOING TO HER CAR AND WOULD BE RIGHT BACK.
--- NOTE | 2020-05-09 21:30 | NUR ---
Vernell MONSALVE APRN CALLED PT NUMBER PROVIDED AND NO ANSWER.
--- NOTE | 2020-05-09 21:40 | NUR ---
PT CALLED AGAIN AND SHE STATED SHE HAD SURGERY IN [place], [place] AND WAS ON HERE WAY TO THAT HOSPITAL.
== END 2020-05-09 21:40 | disposition left against medical advice (07) ==
LOC: EDUNIT# 20:53 → ER 20:54
DX: Z98.890 Other specified postprocedural states (principal)

== ENCOUNTER 2020-05-16 00:31 | Emergency (ER) | payer MEDICAID ==
[~2020-05-16] VITALS: Ht 170 cm; Wt 110.0 kg
[2020-05-16] MEDS ORDERED: oxyCODONE/APAP 5/325MG (PERCOCET 5) TABLET PO ONE (01:00)
--- NOTE | 2020-05-16 01:12 | ED Integumentary General ---
General Chief Complaint: General Problems/Pain Stated Complaint: L LOWER BACK SUTURE PAIN/IRRITATION Source: patient Exam Limitations: no limitations History of Present Illness Date Seen by Provider: May 16, 2020 Time Seen by Provider: 00:45 Initial Comments Patient presents to the ER by private conveyance from home with chief complaint of pain related to a surgery wound from 1 [address] Dr[address] Wooten surgeon in [place] who specializes in hidradenitis. She was told there was a little fluid collection at the corner of the john but she feels that it is tight and increasing pain. Initially he put her out on hydrocodone since she felt that was not enough so he put her on Percocets. She's says Percocet 5 x 3 25 every 6 hours is not enough for her pain. She has multiple allergies and states her allergy to penicillin is that it makes her feet itch. Allergies and Home Medications Allergies Coded Allergies: Penicillins (Verified Allergy, Unknown, 05/16/20) Sulfa (Sulfonamide Antibiotics) (Verified Allergy, Unknown, 05/16/20) azithromycin (Verified Allergy, Unknown, 05/16/20) ketorolac (Verified Allergy, Unknown, 05/16/20) latex (Verified Allergy, Unknown, 05/16/20) tramadol (Verified Allergy, Unknown, 05/16/20) Home Medications Prednisone 20 Mg Tab, 40 MG PO DAILY Prescribed by: WAYNE SMITH on 03/30/20 0251 Prednisone 20 Mg Tab, 40 MG PO DAILY Prescribed by: WAYNE SMITH on 04/24/20 0058 Patient Home Medication List Home Medication List Reviewed: Yes Review of Systems Review of Systems Constitutional: No chills, No diaphoresis EENTM: No ear discharge, No ear pain Respiratory: No cough, No short of breath Cardiovascular: No chest pain, No Hx of Intervention Gastrointestinal: No abdominal pain, No nausea, No vomiting Genitourinary: No discharge, No dysuria Musculoskeletal: No back pain, No joint pain All Other Systems Reviewed Negative Unless Noted: Yes Past Jlobvmw-Gewtou-Nmzjmi Hx Patient Social History Alcohol Use: Denies Use Recreational Drug Use: No Smoking Status: Current Everyday Smoker Type Used: Cigarettes Recent Foreign Travel: No Contact w/Someone Who Travel: No Recent Hopitalizations: No Immunizations Up To Date Tetanus Booster (TDap): Less than 5yrs PED Vaccines UTD: Yes Past Medical History Surgeries: Yes (multiple surgeries for hidradenitis, CARPAL TUNNEL BILAT WRIST) Gallbladder, Hysterectomy, Orthopedic Respiratory: No Cardiac: No Neurological: 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 Genitourinary: No Gastrointestinal: No Musculoskeletal: Yes (BILATERAL CARPAL TUNNEL REPAIR) Endocrine: No HEENT: No Cancer: No Psychosocial: No Integumentary: Yes (hidradenitis) Blood Disorders: No Family Medical History No Pertinent Family Hx Physical Exam Vital Signs Capillary Refill : General Appearance: WD/WN, no apparent distress HEENT: PERRL/EOMI, pharynx normal Neck: full range of motion, normal inspection Cardiovascular: normal peripheral pulses, regular rate, rhythm Respiratory: no respiratory distress, no accessory muscle use Skin: other (warm, dry, intact surgical wound approximately 10 cm with john approximating skin edges. No drainage or fluctuance palpable. Ultrasound unable to reveal any fluid collection under the surface.) Progress/Results/Core Measures Progress Progress Note : Time: 01:02 Progress Note I don't feel any fluctuance but she says it hurts exquisitely. She even breaks out in tears crying with light, subtle touch by the ultrasound probe. It is always possible she could've the start of an infection related to the small seroma that was noted by her surgeon but I cannot see it on ultrasound today. She has aseptic vital signs. It is not unreasonable to put her on a week of Keflex 3 times a day. We are going to give her 2 tablets of Percocet and if that helps her pain we can suggest she double up but we will strongly re-align her pain control expectations. We have suggested she follow-up with her surgeon for continued pain management. I suspect there may be secondary gains to her being here based on her presentation. After reviewing the prescription monitoring program software reveals that she has received the recent opiates that she mentioned however over the past year she has received multiple rounds of opiates from [facility] and [facility] as well as from family practitioners and her surgeons. We want to be careful about contributing to unhealthy opiate use patterns and will outreach counselor her appropriately to stick to her doctor's. Departure Impression Primary Impression: Postoperative pain Disposition: 01 HOME, SELF-CARE Condition: Stable Departure-Patient Inst. Decision time for Depature: 01:12 Referrals: ANDRES NAIK (PCP/Family) Primary Care Physician Patient Instructions: Opioids for Short-Term Treatment of Pain, Postoperative Pain (DC) Add. Discharge Instructions: It's unreasonable to expect to be pain-free. I expect you to use 1 or 2 tablets of Percocet every 6 hours if you're having severe breakthrough pain keeping you from being functional. Staying active and using ibuprofen, Tylenol and judicious applications of heat will help reduce your pain. Sunday you need to follow-up with your doctor. 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 All discharge instructions reviewed with patient and/or family. Voiced understanding. Scripts Cephalexin (Keflex) 500 Mg Capsule 500 MG PO TIDAC for 7 Days, #21 CAP 0 Refills Prov: NIMA URBAN 05/16/20 NIMA URBAN May 16, 2020 01:11
[2020-05-16] MEDS ORDERED: CEPH-507 PO (01:19)
[2020-05-16] MEDS ORDERED: OXYC1TAB87 PO (01:19)
[2020-05-16 01:30] VITALS: BP 109/60
== END 2020-05-16 01:30 | disposition home or self-care (01) ==
LOC: EDUNIT# 00:31 → ER 00:33
DX: G89.18 Other acute postprocedural pain (principal); M54.5 Low back pain; F17.210 Nicotine dependence, cigarettes, uncomplicated; Z79.891 Long term (current) use of opiate analgesic; Z79.52 Long term (current) use of systemic steroids; Z88.0 Allergy status to penicillin; Z88.1 Allergy status to other antibiotic agents; Z88.2 Allergy status to sulfonamides; Z88.5 Allergy status to narcotic agent; Z88.6 Allergy status to analgesic agent; Z91.040 Latex allergy status
CPT/HCPCS: 99283

== ENCOUNTER 2020-08-08 22:28 | Emergency (ER) | payer MEDICAID ==
[~2020-08-08] VITALS: Ht 170 cm; Wt 110.0 kg
[~2020-08-08 22:28] MED LIST changes: +CEPH-507 PO; +OXYC1TAB87 PO
[2020-08-08 22:36] VITALS: BP 144/98
[2020-08-08] MEDS ORDERED: WATER (STERILE) FOR INJECTION 10 ML ONE (22:51)
[2020-08-08] MEDS ORDERED: ONDA4TAB11 PO (22:53)
[2020-08-08] MEDS ORDERED: CEPH500T PO (22:53)
--- NOTE | 2020-08-08 22:53 | ED General ---
General Chief Complaint: Hip/Pelvic Problems Stated Complaint: R HIP IRRITATION Nursing Triage Note: PATIENT STATES SURGERY SUNDAY, , [facility] PAIN Nursing Sepsis Screen: No Definite Risk Source of Information: Patient History of Present Illness Date Seen by Provider: Aug 08, 2020 Time Seen by Provider: 22:37 Initial Comments PT ARRIVES VIA POV FROM HOME PT STATES SHE HAD SURGERY TO RIGHT GROIN AREA ON Sunday08/06/[address] [place] [address] CHIU,. FOR HYDRADENITIS C/O ONGOING SEVERE PAIN IN THE INCISION AREA SINCE SURGERY HAS NOT ATTEMPTED TO CONTACT HER SURGEON REGARDING THIS PT HAS BEEN TAKING OXYCODONE 5/325 1 PILL EVERY 6 HOURS--LAST PILL WAS 4 HOURS AGO AND IS NOT HELPING NO FEVER, NO SIGNIFICANT OR FOUL-SMELLING DRAINAGE, NO SIGNIFICANT REDNESS TO THE AREA NO NUMBNESS OR TINGLING PT STATES SHE IS NOT ON AN ANTIBIOTIC PT HAS BEEN HERE MULTIPLE TIMES (8 VISITS) SINCE 01/2020 FOR POST OP PAIN COMPLAINTS RELATED TO SIMILAR SURGERIES, WELL A CARPAL TUNNEL REPAIR--ALL SURGERIES BEING DONE IN [place]-SEE OLD CHARTS FOR DETAILS. PRESCRIPTION DRUG MONITORING SYSTEM SHOWS THAT PT HAS RECEIVED MULTIPLE RX'S FOR OPIATES FROM MULTIPLE PROVIDERS AT MULTIPLE OTHER FACILITIES--[facility], FAMILY PRACTITIONERS, AND SURGEONS. PT LIVES IN [place], [place]. PCP: ELVIS NAIK AT [facility] IN [place] SURGEON: DR. CHIU [place] ORTHOPEDIC SURGEON: DR. CARDONA [place] Allergies and Home Medications Allergies Coded Allergies: Penicillins (Verified Allergy, Unknown, 05/16/20) Sulfa (Sulfonamide Antibiotics) (Verified Allergy, Unknown, 05/16/20) azithromycin (Verified Allergy, Unknown, 05/16/20) ketorolac (Verified Allergy, Unknown, 05/16/20) latex (Verified Allergy, Unknown, 05/16/20) tramadol (Verified Allergy, Unknown, 05/16/20) Home Medications Cephalexin 500 Mg Capsule, 500 MG PO TIDAC Prescribed by: NIMA URBAN on 05/16/20 011 Cephalexin 500 Mg Tablet, 500 MG PO QID Prescribed by: WAYNE SMITH on 08/08/202252 Ondansetron 4 Mg Tab.rapdis, 4 MG PO Q4H Prescribed by: WAYNE SMITH on 08/08/202252 Oxycodone HCl/Acetaminophen 1 Each Tablet, 1-2 TAB PO Q6H PRN for PAIN- BREAKTHROUGH Prescribed by: NIMA URBAN on 05/16/20 0119 Prednisone 20 Mg Tab, 40 MG PO DAILY Prescribed by: WAYNE SMITH on 03/30/20 0251 Prednisone 20 Mg Tab, 40 MG PO DAILY Prescribed by: WAYNE SMITH on 04/24/20 0058 Patient Home Medication List Home Medication List Reviewed: Yes Review of Systems Review of Systems Constitutional: no symptoms reported; No fever Gastrointestinal: see HPI Genitourinary: no symptoms reported Skin: see HPI Past Fyaytod-Wovjiw-Pbcosm Hx Past Med/Social Hx: Reviewed and Corrections made Patient Social History Alcohol Use: Denies Use Drug of Choice: DENIES Smoking Status: Current Everyday Smoker Type Used: Cigarettes Recent Infectious Disease Expo: No Recent Hopitalizations: No Immunizations Up To Date Tetanus Booster (TDap): Less than 5yrs PED Vaccines UTD: Yes Past Medical History Surgeries: Yes (MULT. 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 oz. kg; 38.00 BMI Method: General Appearance: No Apparent Distress, Obese, Other (VERY DRAMATIC WITH MARKEDLY EXAGGERATED PAIN RESPONSE. ) Respiratory: Normal Breath Sounds Cardiovascular: Regular Rate, Rhythm Gastrointestinal: Other (RIGHT GROIN WITH LARGE INCISION FROM HIP TO PUBIS--NOREEN ALL INTACT. NO DRAINAGE, NO FLUCTUANCE, NO STREAKS, NO SWELLING, MILD ERYTHEMA TO INCISION. ) Neurologic/Psychiatric: Alert, Oriented x3, No Motor/Sensory Deficits Skin: Other ( ABOVE) Progress/Results/Core Measures Suspected Sepsis Recent Fever Within 48 Hours: No Infection Criteria Present: None New/Unexplained Altered Menta: No Sepsis Screen: No Definite Risk SIRS Temperature: Pulse: 92 Respiratory Rate: 18 Blood Pressure 144 /98 Mean: 113 Results/Orders My Orders Orders - WAYNE SMITH DO Methylprednisolone Sod Succ (Solu-Medrol (08/08/20 23:00) Ondansetron Oral Dissolve Tab (Zofran (08/08/20 23:00) Cefazolin Injection (Ancef Injection) (08/08/20 23:00) Water (Sterile) For Injection (Sterile W (08/08/20 22:51) Medications Given in ED Current Medications Medications Dose Ordered Sig/Marjan Route Start Time Stop Time Status Last Admin Dose Admin Cefazolin Sodium 1,000 mg ONCE ONCE IM 08/08/20 23:00 08/08/20 23:01 DC 08/08/20 22:58 1,000 MG Methylprednisolone Sodium Succinate 125 mg ONCE ONCE IM 08/08/20 23:00 08/08/20 23:01 DC 08/08/20 22:59 125 MG Ondansetron HCl 4 mg ONCE ONCE PO 08/08/20 23:00 08/08/20 23:01 DC 08/08/20 22:58 4 MG Sterile Water 10 ml @ ud STK-MED ONCE .ROUTE 08/08/20 22:51 08/08/20 22:56 DC 08/08/20 22:59 2.5 MLS/HR Vital Signs/I&O 08/08/20 22:36 Temp 35.8 Pulse 92 Resp 18 B/P (MAP) 144/98 (113) Pulse Ox 99 O2 Delivery Room Air Capillary Refill : Less Than 3 Seconds Blood Pressure Mean: 113 Progress Note : Progress Note GIVEN SOLU-MEDROL FOR PAIN, PT STATES SHE CANNOT TAKE TORADOL OR TRAMADOL. ADVISED HER I WOULD NOT BE PRESCRIBING ANY ADDITIONAL PAIN MEDICATION SHE HAS ALREADY BEEN PRESCRIBED OXYCODONE. PT ALSO REQUESTS NAUSEA MEDICATION-GIVEN ZOFRAN ODT ALSO GIVEN KEFLEX FOR MILD ERYTHEMA AT INCISION. PT STATES SHE HAS TAKEN THIS IN THE PAST WITHOUT PROBLEMS PT ADVISED TO FOLLOW UP WITH HER SURGEON TOMORROW FOR FURTHER CARE Departure Impression Primary Impression: Acute postoperative pain of right groin Disposition: HOME, SELF-CARE Condition: Stable Departure-Patient Inst. Referrals: ANDRES NAIK (PCP/Family) Primary Care Physician Patient Instructions: Postoperative Pain (DC) Add. Discharge Instructions: TAKE OXYCODONE 2 PILLS EVERY 6 HOURS FOR PAIN FOLLOW ALL POST OP INSTRUCTIONS FOLLOW UP WITH YOUR SURGEON TOMORROW All discharge instructions reviewed with patient and/or family. Voiced understanding. Scripts Ondansetron (Ondansetron Odt) 4 Mg Tab.rapdis 4 MG PO Q4H for Nausea/Vomiting, #10 TAB Prov: WAYNE SMITH DO 08/08/20 Cephalexin (Cephalexin) 500 Mg Tablet 500 MG PO QID, #40 TAB Prov: WAYNE SMITH DO 08/08/20 WAYNE SMITH DO Aug 08, 2020 22:53
[2020-08-08] MEDS ORDERED: ceFAZolin INJECTION 1,000 MG VIAL IM ONE (23:00)
[2020-08-08] MEDS ORDERED: ONDANSETRON 4 MG (ZOFRAN) ORAL DISSOLVE TAB PO ONE (23:00)
[2020-08-08] MEDS ORDERED: methylPREDNISolone 125 MG (Solu-MEDROL) VIAL IM ONE (23:00)
== END 2020-08-08 23:02 | disposition home or self-care (01) ==
LOC: EDUNIT# 22:28 → ER 22:29
DX: G89.18 Other acute postprocedural pain (principal); E66.9 Obesity, unspecified; F17.210 Nicotine dependence, cigarettes, uncomplicated; Z68.38 Body mass index [BMI] 38.0-38.9, adult; Z88.0 Allergy status to penicillin; Z88.2 Allergy status to sulfonamides; Z88.1 Allergy status to other antibiotic agents; Z88.5 Allergy status to narcotic agent; Z91.040 Latex allergy status; Z79.52 Long term (current) use of systemic steroids
CPT/HCPCS: 99284

== ENCOUNTER 2020-08-20 20:57 | Emergency (ER) | payer MEDICAID ==
[~2020-08-20] VITALS: Ht 170.2 cm; Wt 115.0 kg
[~2020-08-20 20:57] MED LIST changes: +CEPH500T PO; +ONDA4TAB11 PO
[2020-08-20 21:04] VITALS: BP 129/89
[2020-08-20] MEDS ORDERED: RX-ONDANSETRON 4 MG ODT (ZOFRAN) PPK #4 PO STA (21:35)
[2020-08-20] MEDS ORDERED: ONDA8TAB13 PO (21:40)
[2020-08-20] MEDS ORDERED: ACHD5005 PO (21:40)
[2020-08-20] MEDS ORDERED: DOXY100T2 PO (21:40)
--- NOTE | 2020-08-20 21:41 | ED Integumentary General ---
General Chief Complaint: Post OP Complications/Pain Stated Complaint: PAIN FROM INCISION ON R HIP Nursing Triage Note: PT AMBULATES TO TRIAGE WITH C/O POSTOP PAIN. REPORTS ON 08/12/20 SHE HAD A PROCEDURE D/T HIDRADENITIS PERFORMED BY DR. LEÓN IN [place], [place]. REPORTS F/U APPOINTMENT ON 08/31/20. REPORTS CONTINOUS PAIN ET SWELLING TO INCISION SITE. DENIES FEVER, CHILLS, OR DRAINAGE FROM SITE. A&OX4. Source: patient Exam Limitations: no limitations History of Present Illness Date Seen by Provider: Aug 20, 2020 Time Seen by Provider: 21:35 Initial Comments To ER with pain at the incision site. She had excision of an area of skin affected by hidradenitis suppurativa in the right inguinal region. The surgery was done by Dr. Noble in [place] on the fourth of this month. Within the past week she has had difficulty standing up because of pain. [place] remain in place. No drainage. No body aches weakness fevers or chills. Timing/Duration: constant Severity: moderate Possible Cause: no cause identified Associated Symptoms: denies symptoms Allergies and Home Medications Allergies Coded Allergies: Penicillins (Verified Allergy, Unknown, 05/16/20) Sulfa (Sulfonamide Antibiotics) (Verified Allergy, Unknown, 05/16/20) azithromycin (Verified Allergy, Unknown, 05/16/20) ketorolac (Verified Allergy, Unknown, 05/16/20) latex (Verified Allergy, Unknown, 05/16/20) tramadol (Verified Allergy, Unknown, 05/16/20) Home Medications Cephalexin 500 Mg Capsule, 500 MG PO TIDAC Prescribed by: NIMA URBAN on 05/16/20118 Cephalexin 500 Mg Tablet, 500 MG PO QID Prescribed by: WAYNE SMITH on 08/08/202252 Ondansetron 4 Mg Tab.rapdis, 4 MG PO Q4H Prescribed by: WAYNE SMITH on 08/08/202252 Oxycodone HCl/Acetaminophen 1 Each Tablet, 1-2 TAB PO Q6H PRN for PAIN- BREAKTHROUGH Prescribed by: NIMA URBAN on 05/16/20118 Prednisone 20 Mg Tab, 40 MG PO DAILY Prescribed by: WAYNE SMITH on 03/30/20 025 Prednisone 20 Mg Tab, 40 MG PO DAILY Prescribed by: WAYNE SMITH on 04/24/20 0058 Patient Home Medication List Home Medication List Reviewed: Yes Review of Systems Review of Systems Constitutional: see HPI; No chills EENTM: see HPI Respiratory: no symptoms reported Genitourinary: no symptoms reported Musculoskeletal: no symptoms reported Skin: see HPI Psychiatric/Neurological: No Symptoms Reported Endocrine: No Symptoms Reported Past Cfojhww-Iahncj-Fowmir Hx Patient Social History Drug of Choice: DENIES Type Used: Cigarettes Recent Infectious Disease Expo: No Recent Hopitalizations: No Immunizations Up To Date Tetanus Booster (TDap): Less than 5yrs PED Vaccines UTD: Yes Seasonal Allergies Seasonal Allergies: No Past Medical History Surgeries: Yes (MULT. 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 Genitourinary: No Gastrointestinal: No Musculoskeletal: Yes (BILATERAL CARPAL TUNNEL REPAIR) Endocrine: Yes (OBESITY) HEENT: No Cancer: No Psychosocial: No Integumentary: Yes (HYDRADENITIS--GROIN, PANNUS, AXILLA-MULTIPLE SURGERIES) Recent Skin Changes Blood Disorders: No Family Medical History No Pertinent Family Hx Physical Exam Vital Signs Vital Signs - First Documented 08/20/20 21:04 Temp 36.9 Pulse 93 Resp 18 B/P (MAP) 129/89 (102) Pulse Ox 99 O2 Delivery Room Air Capillary Refill : Less Than 3 Seconds General Appearance: WD/WN, no apparent distress, obese Neck: non-tender, full range of motion Respiratory: no respiratory distress, no accessory muscle use Neurologic/Psychiatric: alert, normal mood/affect, oriented x 3 Skin: normal color, warm/dry Skin Problem Location: other (Incision to the right inguinal region is clean and intact without drainage. Very minimal (less than 1/2 cm) surrounding erythema about the incision edges. No fluctuance no cellulitis) Progress/Results/Core Measures Results/Orders Vital Signs/I&O 08/20/20 21:04 Temp 36.9 Pulse 93 Resp 18 B/P (MAP) 129/89 (102) Pulse Ox 99 O2 Delivery Room Air Blood Pressure Mean: 102 Departure Impression Primary Impression: Acute postoperative pain of right groin Disposition: 01 HOME, SELF-CARE Condition: Stable Departure-Patient Inst. Decision time for Depature: 21:37 Referrals: ANDRES NAIK (PCP/Family) Primary Care Physician Patient Instructions: Surgical Wound (DC) Add. Discharge Instructions: 1. Warm compresses to the area. Follow-up with your surgeon. Call on Sunday for an appointment. Scripts Doxycycline Hyclate (Doxycycline Hyclate) 100 Mg Tablet 100 MG PO BID, #14 TAB Prov: JOHN MONSALVE APRN 08/20/20 Hydrocodone/Acetaminophen (Hydrocodone-Acetamin 5-325 mg) 1 Each Tablet 1 TAB PO Q6H PRN for PAIN-MODERATE (5-7), #10 TAB Prov: JOHN MONSALVE APRN 08/20/20 Ondansetron (Ondansetron Odt) 8 Mg Tab.rapdis 8 MG PO Q6H PRN for NAUSEA/VOMITING, #10 TAB Prov: JOHN MONSALVE APRN 08/20/20 JOHN MONSALVE APRN Aug 20, 2020 21:41
[2020-08-20] MEDS ORDERED: RX-HYDROCODONE/APAP 5/325 MG #4 TAB PK PO PRN (21:45)
== END 2020-08-20 21:51 | disposition home or self-care (01) ==
LOC: EDUNIT# 20:57 → ER 20:58
DX: G89.18 Other acute postprocedural pain (principal); E66.9 Obesity, unspecified; Z88.0 Allergy status to penicillin; Z88.2 Allergy status to sulfonamides; Z88.1 Allergy status to other antibiotic agents; Z88.6 Allergy status to analgesic agent; Z88.5 Allergy status to narcotic agent; Z91.040 Latex allergy status; Z79.52 Long term (current) use of systemic steroids
CPT/HCPCS: 99283

== ENCOUNTER 2021-05-02 19:12 | Emergency (ER) | payer MEDICAID ==
[~2021-05-02] VITALS: Ht 170 cm; Wt 107.9 kg
[~2021-05-02 19:12] MED LIST changes: +ACHD5005 PO; +DOXY100T2 PO; +ONDA8TAB13 PO
--- OUTSIDE RECORDS SUMMARY | 2021-05-02 19:18 | XMS REPORT | Clinical Summary ---
Author Author [facility] Organization [facility] Address Unknown Phone Unavailable Care Team Providers Care Biosecurity Officer Name Role Phone Abdirahman Rios MD PCP Alex Mccurdy MD Unavailable Source Comments Some departments are not documenting in the electronic medical record. If you d o not see the information that you expected, contact Release of Information in [facility] Information Management department at [phone] for further assistan ce in locating additional records.[facility] Allergies Comments Active Allergy Reactions Severity Noted Date Sulfamethoxazole-Trimetho SHORTNESS OF Medium 06/0 01/2016 prim BREATH Ketorolac SHORTNESS OF Medium 12/14/2015 BREATH Tramadol SHORTNESS OF Medium 12/14/2015 BREATH Vancomycin SHORTNESS OF Medium 12/14/2015 BREATH Azithromycin SHORTNESS OF Medium 12/14/2015 BREATH Medications End Date Status Medication Sig Dispensed Refills Start Date Active HYDROcodone/acetaminophen Take 1 Tab by 0 (NORCO) 7.5/325 mg tablet mouth every 6 hours as needed for Pain Active Problems Problem Noted Date Interstitial cystitis 01/03/2017 Overview: Formatting of this note might be differ ent from the original. Hx of interstitial cystitis - namely pe lvic pain, dyspareunia, dysuria, frequency, UUI. Pilonidal cyst 05/2013 - ABDON 09/15/14 - cysto with hydrodistention (Lilly Huitron) 04/2015 - UA negative. PVR 8mL 06/2015 - Started Elmiron bladder insti llation MRSA (methicillin resistant staph aureus) culture pos itive 06/27/2016 Obesity (BMI 35.0-39.9 without comorbidity) 06/27/20 16 Tobacco abuse 12/14/2015 Tobacco abuse counseling 12/14/2015 Hidradenitis 12/14/2015 Pilonidal cyst with abscess 12/14/2015 Surgical History Surgery Date Site/Laterality Comments HX HYSTERECTOMY GALLBLADDER SURGERY BLADDER SURGERY PILONIDAL CYST EXCISION Medical History Medical History Date Comments Pilonidal cyst Social History Date Tobacco Use Types Packs/Day Years Used Current Every Day Smoker Cigarettes 0.5 Drinks/Week oz/Week Comments Alcohol Use 0 Standard drinks or equivalent 0.0 Not Asked Sex Assigned at Date Recorded Not on file Last Filed Vital Signs Reading Time Taken Comments Vital Sign 145/91 06/27/2016 1:28 PM [employer] Blood Pressure 86 06/27/2016 1:28 PM [employer] Pulse - - Temperature 14 06/27/2016 1:28 PM [employer] Respiratory Rate - - Oxygen Saturation - - Inhaled Oxygen Concentration 99.8 kg (220 lb) 06/27/2016 1:28 PM [employer] Weight 160 cm (5' 3") 06/27/2016 1:28 PM [employer] Height 38.97 06/27/2016 1:28 PM [employer] Body Mass Index Plan of Treatment Health Maintenance Due Date Last Done Comments HIV SCREENING 2005 DTAP/TDAP VACCINES (1 - 2008 Tdap) HEPATITIS C SCREENING 2008 PHYSICAL (COMPREHENSIVE) 2008 EXAM CERVICAL CANCER SCREENING 09/12/2011 INFLUENZA VACCINE 02/07/2020 Results Not on filefrom Last 3 Months Insurance Type Payer Benefit Subscriber ID Effective Phone Address Plan / Dates Group Medicaid UHC MEDICAID [place] UHC [id number] [id number] [place] Advance Directives Patient Multilith Operator Explanation Type Date Recorded Advance 05/13/2013 12:16 PM Directive/DPOA
--- OUTSIDE RECORDS SUMMARY | 2021-05-02 19:18 | XMS REPORT ---
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 Name Role Phone Robbie Langley PCP ANDRES NAIK PreferredProvider Allergies and Adverse Reactions Name Reaction Notes tramadol Toradol Bactrim DS chest pain Zithromax Latex Ancef PENICILLINS Plan of Treatment Planned Activity Comments Planned Date Planned Time Plan/Goal Aerosol Tx 11/01/2020 12:00 AM DRUG SCREEN URINE 04/21/2021 12:00 AM Medications Active Name Start Date Estimated Completion Date SIG Co mments albuterol sulfate 2.5 mg/3 mL (0.083 %) solution for nebulizatio n 11/01/2020 used in Small Volume Nebulizer QID PRN gabapentin 300 mg oral capsule 11/09/2020 t vitor 1 capsule by oral route 2 times a day ondansetron 4 mg oral tablet,disintegrating 03/15/2021 dissolve 1 tablet by oral route 3 times a day as needed oxycodone 5 mg oral tablet 04/07/2021 Take one or two every six hours as needed for severe pain do no exceed five daily. Ondansetron 4 MG Oral Tablet Disintegrating 04/12/202105/14 DISSOLVE 1 TABLET IN MOUTH EVERY 6 HOURS NEEDED Name Start Date Expiration Date SIG Comments [...] by oral route once for 3 days Schaller 5-325 mg oral tablet 05/27/2018 06/06/2018 take [...] 2 times per day for 10 days Norvasc 5 mg oral tablet 02/04/2020 04/04/2020 take 1 tablet (5 mg) by oral route once every 6 hrs prn pain Schaller 5-325 mg oral tablet 03/08/2020 04/07/2020 take 1 tablet by oral route every 6 hours as needed for pain for 30 days Percocet 5-325 mg oral tablet 05/18/2020 05/25/2020 ta ke 1 tablet by oral route every 4-6 hours as needed for 7 days PIOGLITAZONE 30 MG TAB SAND 05/20/2020 07/19/2020 ROBER E ONE TABLET BY MOUTH DAILY FOR NINETY DAYS clindamycin HCl 300 mg oral capsule 06/08/2020 06/18/2020 take 1 capsule (300 mg) by oral route every 6 hours for 10 days vancomycin 250 mg oral capsule 07/01/2020 07/08/2020 t vitor 1 capsule (250 mg) by oral route 3 times per day for 7 days doxycycline monohydrate 100 mg oral capsule 08/26/202009/05 take 1 capsule (100 mg) by oral route every 12 hours for 10 days cephalexin 500 mg oral capsule 09/27/2020 10/07/2020 t vitor 1 capsule (500 mg) by oral route every 12 hours for 10 days prednisone 20 mg oral tablet 11/04/2020 11/18/2020 3x2 days 2X4 days 1X4 days 1/2X4 days levofloxacin 500 mg tablet 11/10/2020 11/20/2020 TAKE 1 TABLET BY MOUTH ONCE DAILY FOR 10 DAYS Vancocin 125 mg capsule 11/27/2020 12/07/2020 take 1 c apsule (125 mg) by oral route 4 times per day for 10 days minocycline 100 mg capsule 12/20/2020 01/19/2021 take 1 capsule (100 mg) by oral route 2 times per day for 30 days Ondansetron 4 MG Oral Tablet Disintegrating 01/12/202102/21 DISSOLVE 1 TABLET IN MOUTH EVERY 6 HOURS NEEDED sumatriptan 50 mg tablet 01/12/2021 02/05/2021 TAKE 1 TABLET BY MOUTH AT ONSET OF MIGRAINE; MAY REPEAT IN 1 HOUR oxycodone-acetaminophen 10-325 mg oral tablet 03/01/2021 take 1 tablet by oral route every 6 hours as needed for 30 days clindamycin HCl 300 mg oral capsule 03/09/2021 03/19/2021 take 1 capsule (300 mg) by oral route every 6 hours for 10 days Discontinued Name Start Date Discontinued Date SIG Comments lisinopril oral 06/11/2018 Lyrica oral 06/11/2018 estradiol 1 mg oral tablet 02/11/2018 Hibiclens 4 % topical liquid 01/30/2018 02/11/2018 apply lyft driver ally as directed Diflucan 150 mg oral tablet 10/01/2018 01/31/2019 take 1 tablet (150 mg) by oral route once and one tablet in five days Flagyl 500 mg oral tablet 11/06/2018 01/06/2019 take 1 tablet by oral route twice a day for 7 days Hibiclens 4 % topical liquid 06/16/2019 05/03/2020 apply lyft driver ally as directed rifampin 300 mg oral capsule 07/07/2019 07/22/2019 rober e 1 capsule by oral route 2 times a day for 10 days Schaller 5-325 mg oral tablet 08/27/2019 10/16/2019 take 1 tablet by oral route every 4-6 hours as needed for pain Schaller 5-325 mg oral tablet 12/22/2019 12/22/2019 take 1 tablet by oral route everyday doxycycline hyclate 100 mg oral tablet 03/08/2020 0 take 1 tablet (100 mg) by oral route 2 times per day METFORMIN 500 MG TAB AVET 05/20/2020 07/30/2020 ROBER E ONE TABLET BY MOUTH TWO TIMES A DAY FOR THIRTY DAYS clindamycin HCl 300 mg oral capsule 07/07/2020 07/30/2020 take 1 capsule by oral route 2 times a day rifampin 300 mg oral capsule 07/07/2020 07/30/2020 rober e 2 capsules by oral route daily tramadol 50 mg oral tablet 08/06/2020 08/10/2020 take 1 tablet (50 mg) by oral route every 6 hours as needed Neurontin 300 mg oral capsule 10/07/2020 11/01/2020 ta ke 1 capsule by oral route 4 times a day for 30 days promethazine 6.25 mg-codeine 10 mg/5 mL syrup 11/01/2020 take 5 milliliters by oral route every 6 hours as needed, not to exceed 30 mL in 24 hours hydrocodone 5 mg-acetaminophen 325 mg tablet 12/09/202012/07 take 1 tablet by oral route every 6 hours as needed . Must last 30 days ondansetron 4 mg oral tablet,disintegrating 12/09/202001/18 dissolve 1 tablet by oral route every 6 hours as needed Lasix 20 mg tablet 12/13/2020 04/06/2021 take 1 tablet (20 mg) by oral route 2 times per day Percocet 10 mg-325 mg tablet 12/23/2020 01/18/2021 rober e 1 tablet by oral route every 6 hours as needed oxycodone 5 mg tablet 01/17/2021 03/01/2021 take 1 tab let (5 mg) by oral route every 4 hours hydrocodone-acetaminophen 10-325 mg oral tablet 03/09/2021 04/06/2021 take 1 tablet by oral route every 6 hours as needed for pain Problem List Description Status Onset Hidradenitis Suppurativa Active 01/21/2018 Other chronic pain Active 01/21/2018 Essential hypertension Active 01/21/2018 Class 2 severe obesity due to excess alta ories with serious comorbidity and body mass index (BMI) of 36.0 to 36.9 in adult Active 01/21/2018 Poor venous access Active 12/07/2020 Vital Signs Date Time BP-Sys(mm[Hg] BP-Monica(mm[Hg]) HR(bpm) RR(rpm) Temp WT HT HC BMI BSA BMI Percentile O2 Sat(%) 04/06/2021 9:01:00 AM 161 mm[Hg] 113 mm[Hg] 94 {beats}/min 97 F 264.312 lbs 67 in 41.3968 kg/m2 2.3807 m2 01/28/2021 2:08:00 PM 152 mm[Hg] 103 mm[Hg] 89 {beats}/min 2 66.312 lbs 67 in 41.71 kg/m2 2.39 m2 01/17/2021 1:35:00 PM 128 mm[Hg] 90 mm[Hg] 86 {beats}/min 18 rpm 98.2 F 264 lbs 96 % 01/05/2021 2:12:00 PM 126 mm[Hg] 80 mm[Hg] 76 {beats}/min 98.2 F 26 3 lbs 67 in 41.1912 kg/m2 2.3747 m2 12/22/2020 3:06:00 PM 126 mm[Hg] 80 mm[Hg] 76 {beats}/min 98.2 F 26 3 lbs 67 in 41.19 kg/m2 2.37 m2 12/20/2020 2:58:00 PM 126 mm[Hg] 80 mm[Hg] 76 {beats}/min 16 rpm 98.2 F 263 lbs 98 % 12/02/2020 2:49:00 PM 158 mm[Hg] 100 mm[Hg] 94 {beats}/min 16 rpm 97.9 F 263 lbs 67 in 41.1912 kg/m2 2.3747 m2 98 % 12/02/2020 2:35:00 PM 140 mm[Hg] 118 mm[Hg] 84 {beats}/min 97.8 F 262 lbs 67 in 41.03 kg/m2 2.37 m2 11/29/2020 2:24:00 PM 160 mm[Hg] 98 mm[Hg] 93 {beats}/min 18 rpm 98.4 F 262.562 lbs 67 in 41.1227 kg/m2 2.3728 m2 98 % 11/01/2020 11:30:00 AM 162 mm[Hg] 100 mm[Hg] 98 {beats}/min 16 rpm 98.4 F 255 lbs 98 % 10/27/2020 2:21:00 PM 132 mm[Hg] 80 mm[Hg] 74 {beats}/min 16 rpm 98.4 F 259 lbs 98 % 10/12/2020 3:53:00 PM 128 mm[Hg] 96 mm[Hg] 88 {beats}/min 16 rpm 98.4 F 258 lbs 98 % 09/27/2020 10:32:00 AM 136 mm[Hg] 78 mm[Hg] 88 {beats}/min 97 F 2 55 lbs 67 in 39.9382 kg/m2 2.3383 m2 97 % 08/11/2020 2:12:00 PM 119 mm[Hg] 79 mm[Hg] 102 {beats}/min 22 rpm 97 F 254 lbs 67 in 39.78 kg/m2 2.33 m2 07/30/2020 9:53:00 AM 148 mm[Hg] 97 mm[Hg] 76 {beats}/min 20 rpm 97.7 F 256 lbs 67 in 40.0949 kg/m2 2.3429 m2 05/26/2020 11:07:00 AM 128 mm[Hg] 82 mm[Hg] 105 {beats}/min 18 rpm 98.1 F 252 lbs 67 in 39.47 kg/m2 2.32 m2 97 % 05/18/2020 11:05:00 AM 124 mm[Hg] 82 mm[Hg] 102 {beats}/min 18 rpm 98.1 F 252 lbs 67 in 39.4684 kg/m2 2.3245 m2 98 % 05/03/2020 11:21:00 AM 162 mm[Hg] 100 mm[Hg] 102 {beats}/min 18 rpm 97. 3 F 252 lbs 67 in 39.47 kg/m2 2.32 m2 100 % 03/08/2020 3:01:00 PM 122 mm[Hg] 90 mm[Hg] 87 {beats}/min 16 rpm 98.2 F 248 lbs 97 % 02/04/2020 12:11:00 PM 130 mm[Hg] 85 mm[Hg] 91 {beats}/min 16 rpm 98.1 F 243.312 lbs 67 in 38.1077 kg/m2 2.2841 m2 99 % 01/26/2020 5:47:00 PM 136 mm[Hg] 85 mm[Hg] 94 {beats}/min 16 rpm 97.9 F 242.312 lbs 67 in 37.95 kg/m2 2.28 m2 100 % 01/19/2020 2:14:00 PM 145 mm[Hg] 93 mm[Hg] 100 {beats}/min 18 rpm 98.2 F 246.312 lbs 67 in 38.5776 kg/m2 2.2982 m2 99 % 01/05/2020 11:55:00 AM 16 rpm 98.4 F 240 lbs 67 in 37.59 kg/m2 2.27 m2 12/22/2019 11:59:00 AM 120 mm[Hg] 70 [...] Reviewed 04/16/2018 12:00 AM Wrist Splint Reviewed 10/30/2018 12:00 AM DRAINAGE OF SKIN ABSCESS Reviewed 10/31/2018 12:00 PM URINALYSIS AUTO W/O SCOPE Reviewed 10/31/2018 12:00 AM URINE BACTERIA CULTURE Returned 01/24/2019 12:00 AM DRAINAGE OF SKIN ABSCESS Reviewed 02/24/2019 12:00 AM NRV CNDJ TEST 9-10 STUDIES Reviewed 02/24/2019 12:00 AM MUSC TEST DONE W/N TEST COMP Reviewed 03/24/2019 12:00 AM Decadron 8mg Injection Reviewed 03/24/2019 12:00 AM Depo-Medrol 80mg Injection Reviewed 03/24/2019 12:00 AM THER/PROPH/DIAG INJ SC/IM Reviewed 04/25/2019 12:00 AM DRAINAGE OF SKIN ABSCESS Reviewed 06/17/2019 12:00 AM DRAINAGE OF SKIN ABSCESS Reviewed 09/14/2019 12:00 AM DRAINAGE OF SKIN ABSCESS Returned 12/29/2019 12:00 AM NRV CNDJ TEST 9-10 STUDIES Reviewed 12/29/2019 12:00 AM MUSC TEST DONE W/N TEST COMP Reviewed 01/05/2020 12:00 AM MAWD Returned 05/03/2020 12:00 AM COVID-19 Testing Returned 07/28/2020 12:00 AM COVID-19 Testing Reviewed 07/30/2020 12:00 AM COVID-19 Testing Reviewed 07/30/2020 12:00 AM COMPLETE CBC W/AUTO DIFF WBC Reviewed 07/30/2020 12:00 AM COMPREHEN METABOLIC PANEL Reviewed 11/01/2020 12:00 AM THERAPEUTIC PROPHYLACTIC/DX INJECTION PADILLA BQ/IM Reviewed 11/01/2020 12:00 AM Decadron 8mg Injection, RHC Medicaid Rev iewed Results Summary Date and Description Results 10/31/2018 12:00 PM Glucose Ur-sCnc neg Bilirub Ur Ql neg Ketones Ur Ql Strip neg Sp Gr Ur Qn 1.020 Hgb Ur Ql Strip small pH Ur-LsCnc 6.0 Prot Ur Ql Strip 30 Urobilinogen Ur-mCnc 0.2 Nitrite Ur Ql Strip neg WBC # Ur small 07/30/2020 1:02 AM WBC 7.0 RBC 5.19 HGB 14.60 g /dLHCT 44.20 %MCV 85.0 fLMCH 28.10 pgMCHC 33.0 g/dLRDW SD 39 %RDW CV 12.50 %MPV 9.20 fLPLT 269 x10E3/uLNRBC# 0.00 NRBC% 0.0 %NEUT 62.8 %LYMP 28.4 %MONO 6.6 %EOS 1.1 %BASO 0.7 #NEUT 4.36 #LYMP 1.98 #MONO 0.46 #EOS 0.08 #BASO 0.05 MANUAL DIFF NOT IND GLUCOSE 102 SODIUM 140 POTASSIUM 4.0 CHLORIDE 105.0 mmol/LCO2 27 BUN 6.0 mg/dLCREATININE 0.730 mg/dLSGOT/AST 31 SGPT/ALT 60 ALK PHOS 67 TOTAL PROTEIN 7.4 ALBUMIN 4.3 TOTAL BILI 0.2 CALCIUM 9.20 mg/dLAGE 29 GFR NonAA 94 GFR AA 114 eGFR 94 mL/min/1.73meGFR AA* >60 mL/min/1.73m 08/04/2020 8:00 AM [id number] NOT DETECTED History Of Immunizations Name Date Admin Mfg Name Mfg Code Trade Name Lot# Route Inj Vis Given Vis Pub CVX Influenza 05/01/2019 Not Entered NE FLUVIRIN-PRESERVATIVE FREE Not Entered Not Entered 05/01/2019 07/09/2020 150 History of Past Illness Name Date of Onset Comments Anxiety Hypertension Chronic pain Hidradenitis Suppurativa 01/21/2018 Other chronic pain 01/21/2018 Essential hypertension 01/21/2018 Class 2 severe obesity due to excess alta ories with serious comorbidity and body mass index (BMI) of 36.0 to 36.9 in adult 01/21/2018 Poor venous access 12/07/2020 Other chronic pain Jan 18 2018 10:04AM [...] respiratory tract infection, unspecified type Apr 21 4:02PM Cellulitis of groin Apr 21 2019 [...] 11:08AM Hidradenitis Suppurativa Jan 05 2020 11:55AM Postoperative Follow-up Jan 19 2020 2:17PM Postoperative Follow-up Jan 26 2020 5:48PM Postoperative Follow-up Feb 04 2020 12:13PM Postoperative Follow-up Mar 08 2020 3:03PM Postoperative Follow-up Feb 18 2020 12:11PM Encounter for laboratory testing for COVID-19 virus May 03 11:18AM Hidradenitis Suppurativa May 03 2020 11:23AM Hidradenitis suppurativa Jun 08 2020 10:06AM Other chronic pain Jun 08 2020 10:06AM Encounter for examination following treatment at [facility] 2019 10:06AM Postoperative Follow-up May 18 2020 11:06AM Hidradenitis suppurativa Jul 01 2020 8:55AM Hidradenitis suppurativa Jul 07 2020 3:30PM Encounter for screening for other viral diseases Jul 28 2020 7:21PM Preop examination Jul 30 2020 9:33AM Hidradenitis Jul 30 2020 9:33AM Cough Aug 26 2020 5:58PM Headache Aug 26 2020 5:58PM Pain management Sep 27 2020 3:42PM Upper respiratory tract infection, unspecified type Sep 27 3:42PM Seasonal allergies Sep 27 2020 3:42PM Neurogenic pain Sep 27 2020 3:42PM Smoker Sep 27 2020 3:42PM Encounter for examination following treatment at [facility] 2020 2:21PM Moderate Acute Rib pain Improving Oct 27 2020 2:21PM Muscle spasms of neck Oct 12 2020 3:55PM Cervicalgia Oct 12 2020 3:55PM Cough Nov 01 2020 11:31AM Chest congestion Nov 01 2020 11:31AM Upper respiratory tract infection, unspecified type Nov 01 021 11:31AM SOB (shortness of breath) Nov 01 2020 11:31AM Acute bronchitis, unspecified organism Nov 01 2020 11:31AM Hidradenitis Dec 02 2020 2:30PM Poor venous access Dec 02 2020 2:30PM Medication management Nov 29 2020 2:25PM Poor venous access Nov 29 2020 2:25PM Moderate Chronic Recurrent Hidradenitis suppurativa November 29 021 2:25PM Hidradenitis suppurativa Dec 22 2020 3:09PM Wound dehiscence Dec 22 2020 3:09PM Pain management Dec 20 2020 2:58PM Encounter for examination following treatment at [facility] n 2020 2:58PM Cellulitis Dec 20 2020 2:58PM Poor venous access Jan 05 2021 2:14PM Hidradenitis suppurativa Jan 05 2021 2:14PM Cellulitis of neck Jan 17 2021 1:37PM Severe Chronic Poor venous access Jan 17 2021 1:37PM History of methicillin resistant Staph aureus Jan 17 2021 1 :37PM Pain management Jan 17 2021 1:37PM Encounter for examination following treatment at [facility] 2020 1:37PM Pain management Mar 09 2021 2:02PM Pilonidal cyst Mar 09 2021 2:02PM Cellulitis of buttock Mar 09 2021 2:02PM Poor venous access Apr 06 2021 9:06AM Hidradenitis suppurativa Apr 06 2021 9:06AM Long-term use of high-risk medication Apr 21 2021 4:05PM Payers Insurance Name Company Name Plan Name Plan Number Policy Number Trey Group Number Start Date [facility] ealthCare RHC Comm [id number] [facility] [id number] N/A [place] [employer] Prog - RHC [facility] Asst Prog - RH C [id number] N/A [place] Medical Assistance [facility] Medical Nicky tance Prog [id number] N/A [place] Medical Assistance [facility] Medical Nicky tance Prog [id number] N/A History of Encounters Visit Date Visit Type Provider 04/07/2021 [facility] Robbie Langley DO 04/06/2021 Office visit Robbie Langley DO 03/09/2021 Office visit ANDRES MCGILL 01/28/2021 Office visit Robbie Langley DO 01/17/2021 Office visit ANDRES MCGILL 01/06/2021 Surgery Robbie Langley DO 01/05/2021 Office visit 01/05/2021 Office visit Robbie Langley DO 12/28/2020 Surgery Robbie Langley DO 12/23/2020 Surgery Robbie Langley DO 12/22/2020 Procedures Robbie Langley DO 12/20/2020 Office visit ANDRES MCGILL 12/09/2020 Surgery Robbie Bouman DO 12/02/2020 Office visit Robbie Bouman DO 11/29/2020 Office visit ANDRES MCGILL 11/01/2020 Office visit ANDRES MCGILL 10/27/2020 Office visit ANDRES MCGILL 10/12/2020 Office visit ANDRES MCGILL 09/27/2020 Office visit ANDRES MCGILL 09/14/2020 Procedures Robbie Bouman DO 08/26/2020 Office visit Yvon Howard INFORMATION TECHNOLOGY ADVISOR 08/11/2020 Procedures Robbie Bouman DO 08/05/2020 Surgery Robbie Bouman DO 07/30/2020 Procedures Robbie Bouman DO 07/28/2020 Office visit Yvon Howard INFORMATION TECHNOLOGY ADVISOR 07/28/2020 Voided Yvon Howard INFORMATION TECHNOLOGY ADVISOR 07/07/[address] Fadi Celestin MD 07/01/2020 Office visit ANDRES MCGILL 06/08/2020 Office visit ANDRES MCGILL 05/26/2020 Office visit Andres Wooten MD 05/18/2020 Office visit Andres Wooten MD 05/07/2020 Surgery Andres Wooten MD 05/03/2020 Procedures Andres Wooten MD 03/08/2020 Office visit Andres Wooten MD 02/18/2020 Office visit Andres Wooten MD 02/04/2020 Procedures Andres Wooten MD 01/26/2020 Office visit Andres Wooten MD 01/19/2020 Office visit Andres Wooten MD 01/09/2020 Surgery Andres Wooten MD 01/05/2020 Office visit Andres Wooten MD 12/22/2019 Office visit Andres Wooten MD 12/15/2019 Procedures Elio Julien DO 12/12/2019 Office visit Elio Julien DO 12/10/2019 Procedures Andres Wooten MD 11/20/2019 Office visit ANDRES MCGILL 10/14/2019 Procedures Andres Wooten MD 08/27/2019 Office visit Andres Wooten MD 08/20/2019 Office visit Andres Wooten MD 08/04/2019 Office visit Andres Wooten MD 07/28/2019 Office visit Andres Wooten MD 07/22/2019 Office visit Andres Wooten MD 07/17/2019 Surgery Andres Wooten MD 07/14/2019 Office visit Andres Wooten MD 06/16/2019 Procedures Andres Wooten MD 04/21/2019 Office visit ANDRES MCGILL 04/02/2019 Procedures Andres Wooten MD 03/24/2019 Office visit ANDRES MCGILL 02/24/2019 Procedures Elio Julien DO 01/21/2019 Office visit ANDRES MCGILL 01/06/2019 Procedures Andres Wooten MD 10/31/2018 Office visit Hira Bone Joyjanee Jennings PRN 10/30/2018 Procedures Andres Wooten MD 10/29/2018 Office visit Andres Wooten MD 09/25/2018 Procedures Andres Wooten MD 08/06/2018 Office visit Andres Wooten MD 07/23/2018 Office visit Andres Wooten MD 07/18/2018 Surgery Andres Wooten MD 07/15/2018 Office visit Andres Wooten MD 07/11/2018 Surgery Andres Wooten MD 07/03/2018 Office visit Andres Wooten MD 06/24/2018 Office visit Andres Wooten MD 06/20/2018 Surgery Andres Wooten MD 06/11/2018 Office visit Andres Wooten MD 06/04/2018 Office visit ANDRES MCGILL 05/27/2018 Office visit Andres Wooten MD 05/23/2018 Surgery Andres Wooten MD 05/22/2018 Office visit Andres Wooten MD 04/23/2018 Office visit ANDRES MCGILL 04/16/2018 Office visit ANDRES MCGILL 04/08/2018 Office visit Andres Wooten MD 04/02/2018 Office visit Andres Wooten MD 03/26/2018 Procedures Andres Wooten MD 03/14/2018 Surgery Andres Wooten MD 03/12/2018 Office visit Andres Wooten MD 03/05/2018 Office visit Andres Wooten MD 02/27/2018 Office visit Andres Wooten MD 02/21/2018 Surgery Andres Wooten MD 02/13/2018 Office visit Andres Wooten MD 02/11/2018 Office visit Emma collier PRODUCT DEVELOPMENT ACTUARY 01/30/2018 Procedures Andres Wooten MD 01/18/2018 Office visit ANDERS MCGILL 08/29/2013 [facility] Keesha Ojeda MD
--- OUTSIDE RECORDS SUMMARY | 2021-05-02 19:18 | XMS REPORT ---
Author Author Jeri Langley [facility] Address [address] [place], [place] [id number] Care Team Providers Care [employer] Name Role Phone Robbie Langley PCP JUSTIN NAIK PreferredProvider Allergies and Adverse Reactions Name Reaction Notes tramadol Toradol Bactrim DS chest pain Zithromax Latex Ancef PENICILLINS Plan of Treatment Planned Activity Comments Planned Date Planned Time Plan/Goal Aerosol Tx 11/01/2020 12:00 AM Medications Active Name Start Date [...] by oral route once for 3 days [place] 5-325 mg oral tablet 05/27/2018 06/06/2018 take [...] route once every 6 hrs prn pain [place] 5-325 mg oral tablet 03/08/2020 04/07/2020 take [...] 4 % topical liquid 01/30/2018 02/11/2018 apply manager pet ally as directed Diflucan 150 mg oral tablet 10/01/2018 01/31/2019 take 1 tablet (150 mg) by oral route once and one tablet in five days Flagyl 500 mg oral tablet 11/06/2018 01/06/2019 take 1 tablet by oral route twice a day for 7 days Hibiclens 4 % topical liquid 06/16/2019 05/03/2020 apply manager pet ally as directed rifampin 300 mg oral capsule 07/07/2019 07/22/2019 rober e 1 capsule by oral route 2 times a day for 10 days [place] 5-325 mg oral tablet 08/27/2019 10/16/2019 take 1 tablet by oral route every 4-6 hours as needed for pain [place] 5-325 mg oral tablet 12/22/2019 12/22/2019 take [...] mL/min/1.73meGFR AA* >60 mL/min/1.73m 08/04/2020 8:00 AM [id number] NOT DETECTED History Of Immunizations Name Date [...] 10:06AM Encounter for examination following treatment at [facility] 2019 10:06AM Postoperative Follow-up May [...] 3:42PM Encounter for examination following treatment at [facility] r 2020 2:21PM Moderate Acute Rib pain Improving [...] 2:58PM Encounter for examination following treatment at [facility] 2020 2:58PM Cellulitis Dec 20 2020 2:58PM Poor venous access Jan 05 2021 2:14PM Hidradenitis suppurativa Jan 05 2021 2:14PM Cellulitis of neck Jan 17 2021 1:37PM Severe Chronic Poor venous access Jan 17 2021 1:37PM History of methicillin resistant Staph aureus Jan 17 2021 1 :37PM Pain management Jan 17 2021 1:37PM Encounter for examination following treatment at [facility] 2020 1:37PM Pain management Mar 09 2021 2:02PM Pilonidal cyst Mar 09 2021 2:02PM Cellulitis of buttock Mar 09 2021 2:02PM Poor venous access Apr 06 2021 9:06AM Hidradenitis suppurativa Apr 06 2021 9:06AM Payers Insurance Name Company Name Plan Name Plan Number Policy Number Trey cy Group Number Start Date [facility] ealthCare RHC Comm [id number] [facility] [id number] N/A [place] Lead Injection Mold Technician Prog - RHC [place] Lead Injection Mold Technician Prog - RH C [id number] N/A [place] Medical Assistance [facility] Medical Nicky tance Prog [id number] N/A [place] Medical Assistance [facility] Medical Nicky tance Prog [id number] N/A History of Encounters Visit Date Visit Type Provider 04/07/2021 [facility] Robbie Langley DO 04/06/2021 Office visit Robbie Langley DO 03/09/2021 Office visit JUSTIN MCGILL 01/28/2021 Office visit Robbie Langley DO 01/17/2021 Office visit JUSTIN MCGILL 01/06/2021 Surgery Robbie Langley DO 01/05/2021 Office visit 01/05/2021 Office visit Robbie Langley DO 12/28/2020 Surgery Robbie Langley DO 12/23/2020 Surgery Robbie Langley DO 12/22/2020 Procedures Robbie Langley DO 12/20/2020 Office visit JUSTIN MCGILL 12/09/2020 Surgery Robbie Langley DO 12/02/2020 Office visit Robbie Langley DO 11/29/2020 Office visit JUSTIN MCGILL 11/01/2020 Office visit JUSTIN MCGILL 10/27/2020 Office visit JUSTIN MCGILL 10/12/2020 Office visit JUSTIN MCGILL 09/27/2020 Office visit JUSTIN MCGILL 09/14/2020 Procedures Robbie Bouman DO 08/26/2020 Office visit Yvon Howard COMMUNITY HEALTH PROGRAM COORDINATOR 08/11/2020 Procedures Robbie Bouman DO 08/05/2020 Surgery Robbie Bouman DO 07/30/2020 Procedures Robbie Bouman DO 07/28/2020 Office visit Yvon Anita COMMUNITY HEALTH PROGRAM COORDINATOR 07/28/2020 Voided Yvon Howard COMMUNITY HEALTH PROGRAM COORDINATOR 07/07/[address] Fadi Celestin MD 07/01/2020 Office visit JUSTIN MCGILL 06/08/2020 Office visit JUSTIN MCGILL 05/26/2020 Office visit Justin Wooten MD 05/18/2020 Office visit Justin Wooten MD 05/07/2020 Surgery Justin Wooten MD 05/03/2020 Procedures Justin Wooten MD 03/08/2020 Office visit Justin Wooten MD 02/18/2020 Office visit Justin Wooten MD 02/04/2020 Procedures Justin Wooten MD 01/26/2020 Office visit Justin Wooten MD 01/19/2020 Office visit Justin Wooten MD 01/09/2020 Surgery Justin Wooten MD 01/05/2020 Office visit Justin Wooten MD 12/22/2019 [...] Office visit Emma collier APRN 01/30/2018 Procedures Jusitn Wooten MD 01/18/2018 Office visit JUSTIN MCGILL 08/29/2013 Felicita Ojeda MD
--- OUTSIDE RECORDS SUMMARY | 2021-05-02 19:18 | XMS REPORT ---
Author Author Jeri Langley [facility] Address [address] [place], [place] [address] Care Team Providers Care Director Of Clinical Trials Name Role Phone Robbie Langley PCP JUSTIN [...] by oral route once for 3 days [place] 5-325 mg oral tablet 05/27/2018 06/06/2018 take [...] route once every 6 hrs prn pain [place] 5-325 mg oral tablet 03/08/2020 04/07/2020 take [...] 4 % topical liquid 01/30/2018 02/11/2018 apply patient access manager ally as directed Diflucan 150 mg oral tablet 10/01/2018 01/31/2019 take 1 tablet (150 mg) by oral route once and one tablet in five days Flagyl 500 mg oral tablet 11/06/2018 01/06/2019 take 1 tablet by oral route twice a day for 7 days Hibiclens 4 % topical liquid 06/16/2019 05/03/2020 apply patient access manager ally as directed rifampin 300 mg oral capsule 07/07/2019 07/22/2019 rober e 1 capsule by oral route 2 times a day for 10 days [place] 5-325 mg oral tablet 08/27/2019 10/16/2019 take 1 tablet by oral route every 4-6 hours as needed for pain [place] 5-325 mg oral tablet 12/22/2019 12/22/2019 take 1 tablet by oral route everyday doxycycline hyclate 100 mg oral tablet 03/08/2020 0 take 1 tablet (100 mg) by oral route 2 times per day METFORMIN 500 MG TAB AVET 05/20/2020 07/30/2020 ROEBR E ONE TABLET BY MOUTH TWO TIMES [...] mL/min/1.73meGFR AA* >60 mL/min/1.73m 08/04/2020 8:00 AM [id number] NOT DETECTED History Of Immunizations Name Date [...] 10:06AM Encounter for examination following treatment at [facility] 2019 10:06AM Postoperative Follow-up May 18 2020 [...] 3:42PM Encounter for examination following treatment at [facility] r 2020 2:21PM Moderate Acute Rib pain [...] 2:58PM Encounter for examination following treatment at [facility] 2020 2:58PM Cellulitis Dec 20 2020 2:58PM Poor venous access Jan 05 2021 2:14PM Hidradenitis suppurativa Jan 05 2021 2:14PM Cellulitis of neck Jan 17 2021 1:37PM Severe Chronic Poor venous access Jan 17 2021 1:37PM History of methicillin resistant Staph aureus Jan 17 2021 1 :37PM Pain management Jan 17 2021 1:37PM Encounter for examination following treatment at [facility] 2020 1:37PM Pain management Mar 09 2021 2:02PM Pilonidal cyst Mar 09 2021 2:02PM Cellulitis of buttock Mar 09 2021 2:02PM Poor venous access Apr 06 2021 9:06AM Hidradenitis suppurativa Apr 06 2021 9:06AM Payers Insurance Name Company Name Plan Name Plan Number Policy Number Trey cy Group Number Start Date [facility] ealthCare RHC Comm [id number] [facility] [id number] N/A [place] Windows Security Engineer 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 - RHC [place] Windows Security Engineer Prog - RH C [id number] N/A [place] Medical Assistance [facility] Medical Nicky tance Prog [id number] N/A [place] Medical Assistance [facility] Medical Nicky tance Prog [id number] N/A History of Encounters Visit Date Visit Type Provider 04/07/2021 [facility] Robbie Langley DO 04/06/2021 Office visit Robbie Langley DO 03/09/2021 Office visit JUSTIN CMGILL 01/28/2021 Office visit Robbie Langley DO 01/17/2021 [...] Bouman DO 08/26/2020 Office visit Yvon Howard PIE TOPPER 08/11/2020 Procedures Robbie Bouman DO 08/05/2020 Surgery Robbie Bouman DO 07/30/2020 Procedures Robbie Bouman DO 07/28/2020 Office visit Yvon Anita PIE TOPPER 07/28/2020 Voided Yvon Howard PIE TOPPER 07/07/[address] Fadi Celestin MD [...] Office visit JUSTIN MCGILL 02/24/2019 Procedures Elio Ujlien DO 01/21/2019 Office visit JUSTIN MCGILL 01/06/2019 [...]
--- OUTSIDE RECORDS SUMMARY | 2021-05-02 19:18 | XMS REPORT ---
Author Author Jeri Langley [facility] Address [address] [place], [place] [id number] Care Team Providers Care Bellows Filler Name Role Phone Robbie Langley PCP ANDRES [...] TABLET IN MOUTH EVERY 6 HOURS NEEDED oxycodone-acetaminophen 10-325 mg oral tablet 04/21/2021 take 1 tablet by oral route every 6 hours as needed for 30 days Name Start Date Expiration [...] by oral route once for 3 days [place] 5-325 mg oral tablet 05/27/2018 06/06/2018 take [...] route once every 6 hrs prn pain [place] 5-325 mg oral tablet 03/08/2020 04/07/2020 take [...] OF MIGRAINE; MAY REPEAT IN 1 HOUR clindamycin HCl 300 mg oral capsule 03/09/2021 03/19/2021 take 1 capsule (300 mg) by oral route every 6 hours for 10 days Discontinued Name Start Date Discontinued Date SIG Comments lisinopril oral 06/11/2018 Lyrica oral 06/11/2018 estradiol 1 mg oral tablet 02/11/2018 Hibiclens 4 % topical liquid 01/30/2018 02/11/2018 apply market analysis director ally as directed Diflucan 150 mg oral tablet 10/01/2018 01/31/2019 take 1 tablet (150 mg) by oral route once and one tablet in five days Flagyl 500 mg oral tablet 11/06/2018 01/06/2019 take 1 tablet by oral route twice a day for 7 days Hibiclens 4 % topical liquid 06/16/2019 05/03/2020 apply market analysis director ally as directed rifampin 300 mg oral capsule 07/07/2019 07/22/2019 rober e 1 capsule by oral route 2 times a day for 10 days [place] 5-325 mg oral tablet 08/27/2019 10/16/2019 take 1 tablet by oral route every 4-6 hours as needed for pain [place] 5-325 mg oral tablet 12/22/2019 12/22/2019 take [...] Class 2 severe obesity due to excess lata ories with serious comorbidity and body mass [...] mL/min/1.73meGFR AA* >60 mL/min/1.73m 08/04/2020 8:00 AM [id number] NOT DETECTED History Of Immunizations Name Date [...] 10:06AM Encounter for examination following treatment at [facility] 2019 10:06AM Postoperative Follow-up May [...] 3:42PM Encounter for examination following treatment at [facility] 2020 2:21PM Moderate Acute Rib pain [...] 2:58PM Encounter for examination following treatment at [facility] 2020 2:58PM Cellulitis Dec 20 2020 2:58PM Poor venous access Jan 05 2021 2:14PM Hidradenitis suppurativa Jan 05 2021 2:14PM Cellulitis of neck Jan 17 2021 1:37PM Severe Chronic Poor venous access Jan 17 2021 1:37PM History of methicillin resistant Staph aureus Jan 17 2021 1 :37PM Pain management Jan 17 2021 1:37PM Encounter for examination following treatment at [facility] 2020 1:37PM Pain management Mar 09 2021 2:02PM Pilonidal cyst Mar 09 2021 2:02PM Cellulitis of buttock Mar 09 2021 2:02PM Poor venous access Apr 06 2021 9:06AM Hidradenitis suppurativa Apr 06 2021 9:06AM Long-term use of high-risk medication Apr 21 2021 4:05PM Payers Insurance Name Company Name Plan Name Plan Number Policy Number Trey Group Number Start Date [place] - [facility] - Community [facility] ealtare RHC Comm [id number] [facility] [id number] N/A [place] 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 [facility] Asst Prog - RH C [id number] N/A [place] Medical Assistance [facility] Medical Nicky tance Prog [id number] N/A [place] Medical Assistance [facility] Medical Nicky tance Prog [id number] N/A History of Encounters Visit Date Visit Type Provider 04/26/2021 Surgery Robbie Langley DO 04/07/2021 Hospital Robbie Langley DO 04/06/2021 Office visit [...] Bouman DO 08/26/2020 Office visit Yvon Howard INK PRINTER 08/11/2020 Procedures Robbie Bouman DO 08/05/2020 Surgery Robbie Bouman DO 07/30/2020 Procedures Robbie Bouman DO 07/28/2020 Office visit Yvon Howard INK PRINTER 07/28/2020 Voided Yvon Howard INK PRINTER 07/07/[address] Fadi Celestin MD [...] Office visit ANDRES MCGILL 01/06/2019 Procedures Andres Wotoen MD 10/31/2018 Office visit Matthewelias RigoEmerita Joyjanee Jennings PRN 10/30/2018 Procedures Andres Wooten MD 10/29/2018 Office visit Andres Wooten MD 09/25/2018 Procedures Andres Wooten MD 08/06/2018 Office visit Anrdes Wooten MD 07/23/2018 Office visit Andres Wooten [...] Andres Wooten MD 02/11/2018 Office visit Emma collire QUILL FIXER 01/30/2018 Procedures Andres Wooten MD 01/18/2018 Office visit ANDRES MCGILL 08/29/2013 [facility] Keesha Ojeda MD
--- OUTSIDE RECORDS SUMMARY | 2021-05-02 19:19 | XMS REPORT ---
Author Author Jeri Langley [facility] Address [address] [place], [place] [address] Care Team Providers Care Trading Specialist Name Role Phone Robbie Langley PCP ANDRES [...] severe pain do no exceed five daily. Name Start Date Expiration Date SIG Comments [...] by oral route once for 3 days [place] 5-325 mg oral tablet 05/27/2018 06/06/2018 take [...] route once every 6 hrs prn pain [place] 5-325 mg oral tablet 03/08/2020 04/07/2020 take [...] 4 % topical liquid 01/30/2018 02/11/2018 apply helper/driver ally as directed Diflucan 150 mg oral tablet 10/01/2018 01/31/2019 take 1 tablet (150 mg) by oral route once and one tablet in five days Flagyl 500 mg oral tablet 11/06/2018 01/06/2019 take 1 tablet by oral route twice a day for 7 days Hibiclens 4 % topical liquid 06/16/2019 05/03/2020 apply helper/driver ally as directed rifampin 300 mg oral capsule 07/07/2019 07/22/2019 rober e 1 capsule by oral route 2 times a day for 10 days [place] 5-325 mg oral tablet 08/27/2019 10/16/2019 take 1 tablet by oral route every 4-6 hours as needed for pain [place] 5-325 mg oral tablet 12/22/2019 12/22/2019 take [...] pain Problem List Description Status Onset Hidradenitis suppurativa [...] mL/min/1.73meGFR AA* >60 mL/min/1.73m 08/04/2020 8:00 AM [id number] NOT DETECTED History Of Immunizations Name Date [...] 10:06AM Encounter for examination following treatment at [facility] 2019 10:06AM Postoperative Follow-up May 18 2020 [...] respiratory tract infection, unspecified type Sep 27 021 3:42PM Seasonal allergies Sep 27 2020 3:42PM Neurogenic pain Sep 27 2020 3:42PM Smoker Sep 27 2020 3:42PM Encounter for examination following treatment at [facility] 2020 2:21PM Moderate Acute Rib pain [...] Moderate Chronic Recurrent Hidradenitis suppurativa November 29 2 021 2:25PM Hidradenitis suppurativa Dec 22 2020 3:09PM Wound dehiscence Dec 22 2020 3:09PM Pain management Dec 20 2020 2:58PM Encounter for examination following treatment at [facility] 2020 2:58PM Cellulitis Dec 20 2020 2:58PM Poor venous access Jan 05 2021 2:14PM Hidradenitis suppurativa Jan 05 2021 2:14PM Cellulitis of neck Jan 17 2021 1:37PM Severe Chronic Poor venous access Jan 17 2021 1:37PM History of methicillin resistant Staph aureus Jan 17 2021 1 :37PM Pain management Jan 17 2021 1:37PM Encounter for examination following treatment at [facility] 2020 1:37PM Pain management Mar 09 2021 2:02PM Pilonidal cyst Mar 09 2021 2:02PM Cellulitis of buttock Mar 09 2021 2:02PM Poor venous access Apr 06 2021 9:06AM Hidradenitis suppurativa Apr 06 2021 9:06AM Payers Insurance Name Company Name Plan Name Plan Number Policy Number Trey cy Group Number Start Date [facility] - [facility] - [facility] ealthCare RHC Comm [id number] N[facility] [id number] N/A [place] Court Commissioner Prog - RHC [place] Commissioner Prog - C [id number] N/A [place] Medical Assistance [facility] Medical Nicky tance Prog [id number] N/A [place] Medical Assistance [facility] Medical Nicky tance Prog [id number] N/A History of Encounters Visit Date Visit Type Provider 04/06/2021 Office visit Robbie Langley DO 03/09/2021 Office visit ANDRES MCGILL 01/28/2021 Office visit Robbie Langley DO 01/17/2021 Office visit ANDRES MCGILL 01/06/2021 Surgery Robbie Langley DO 01/05/2021 Office visit 01/05/2021 Office visit Robbie Langley DO 12/28/2020 Surgery Robbie Langley DO 12/23/2020 Surgery Robbie Langley DO 12/22/2020 Procedures Robbie Langley DO 12/20/2020 Office visit ANDRES MCGILL 12/09/2020 Surgery Robbie Langley DO 12/02/2020 Office visit Robbie Langley DO 11/29/2020 Office visit ANDRES MCGILL 11/01/2020 Office visit ANDRES MCGILL 10/27/2020 Office visit ANDRES MCGILL 10/12/2020 Office visit ANDRES MCGILL 09/27/2020 Office visit ANDRES MCGILL 09/14/2020 Procedures Robbie Bouman DO 08/26/2020 Office visit Yvon Howard MERCHANT TAILOR 08/11/2020 Procedures Robbie Bouman DO 08/05/2020 Surgery Robbie Bouman DO 07/30/2020 Procedures Robbie Bouman DO 07/28/2020 Office visit Yvonrebecca Howard MERCHANT TAILOR 07/28/2020 Voided Yvon Anita MERCHANT TAILOR 07/07/[address] Fadi Celestin MD [...] Andres Wooten MD 10/31/2018 Office visit Hira QUINONES 10/30/2018 Procedures Andres Wooten MD 10/29/2018 Office [...] Andres Wooten MD 04/23/2018 Office visit ANDRES NAIK PA 04/16/2018 Office visit ANDRES MCGILL 04/08/2018 Office visit Andres oWoten MD 04/02/2018 Office visit Andres Wooten MD 03/26/2018 Procedures Andres Wooten MD 03/14/2018 Surgery Andres Wooten MD 03/12/2018 Office visit Andres Wooten MD 03/05/2018 Office visit Andres Wooten MD 02/27/2018 Office visit Andres Wooten MD 02/21/2018 Surgery Andres Wooten MD 02/13/2018 Office visit Andres Wooten MD 02/11/2018 Office visit Emma collier ELECTRONICS SUPERVISOR 01/30/2018 Procedures Andres Wooten MD 01/18/2018 Office visit ANDRES MCGILL 08/29/2013 Felicita Ojeda MD
--- OUTSIDE RECORDS SUMMARY | 2021-05-02 19:19 | XMS REPORT ---
Author Author Jeri Langley [facility] Address [address] [place], [place] [address] Care Team Providers Care Plate Fitter Name Role Phone Robbie Langley PCP JUSTIN [...] route 3 times a day as needed Name Start Date Expiration Date SIG Comments [...] by oral route once for 3 days [place] 5-325 mg oral tablet 05/27/2018 06/06/2018 take [...] route once every 6 hrs prn pain [place] 5-325 mg oral tablet 03/08/2020 04/07/2020 take [...] 4 % topical liquid 01/30/2018 02/11/2018 apply inspector balance wheel motion ally as directed Diflucan 150 mg oral tablet 10/01/2018 01/31/2019 take 1 tablet (150 mg) by oral route once and one tablet in five days Flagyl 500 mg oral tablet 11/06/2018 01/06/2019 take 1 tablet by oral route twice a day for 7 days Hibiclens 4 % topical liquid 06/16/2019 05/03/2020 apply inspector balance wheel motion ally as directed rifampin 300 mg oral capsule 07/07/2019 07/22/2019 rober e 1 capsule by oral route 2 times a day for 10 days [place] 5-325 mg oral tablet 08/27/2019 10/16/2019 take 1 tablet by oral route every 4-6 hours as needed for pain [place] 5-325 mg oral tablet 12/22/2019 12/22/2019 take [...] mL/min/1.73meGFR AA* >60 mL/min/1.73m 08/04/2020 8:00 AM [id number] NOT DETECTED History Of Immunizations Name Date [...] 10:06AM Encounter for examination following treatment at [facility] 2019 10:06AM Postoperative Follow-up May 18 [...] 3:42PM Encounter for examination following treatment at hospital r 2020 2:21PM Moderate Acute Rib pain Improving Oct 27 2020 2:21PM Muscle spasms of neck Oct 12 2020 3:55PM Cervicalgia Oct 12 2020 3:55PM Cough Nov 01 2020 11:31AM Chest congestion Nov 01 2020 11:31AM Upper respiratory tract infection, unspecified type Nov 01 2 021 11:31AM SOB (shortness of breath) Nov [...] 2:58PM Encounter for examination following treatment at [facility] 2020 2:58PM Cellulitis Dec 20 2020 2:58PM Poor venous access Jan 05 2021 2:14PM Hidradenitis suppurativa Jan 05 2021 2:14PM Cellulitis of neck Jan 17 2021 1:37PM Severe Chronic Poor venous access Jan 17 2021 1:37PM History of methicillin resistant Staph aureus Jan 17 2021 1 :37PM Pain management Jan 17 2021 1:37PM Encounter for examination following treatment at [facility] 2020 1:37PM Pain management Mar 09 2021 2:02PM Pilonidal cyst Mar 09 2021 2:02PM Cellulitis Mar 09 2021 2:02PM Poor venous access Apr 06 2021 9:06AM Hidradenitis suppurativa Apr 06 2021 9:06AM Payers Insurance Name Company Name Plan Name Plan Number Policy Number Trey cy Group Number Start Date [facility] - [facility] - Community [facility] ealthCare RHC Comm [id number] N/A 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 - RH C [id number] N/A [place] Medical Assistance [facility] Medical Nicky tance Prog [id number] N/A [place] Medical Assistance [facility] Medical Nicky tance Prog [id number] N/A History of Encounters Visit Date Visit Type Provider 04/06/2021 Office visit Robbie Langley DO 03/09/2021 Office visit JUSTIN MCGILL 01/28/2021 Office visit Robbie Langley DO 01/17/2021 Office visit JUSTIN MCGILL 01/06/2021 Surgery Robbie Langley DO 01/05/2021 Office visit 01/05/2021 Office visit Robbie Langley DO 12/28/2020 Surgery Robbie Limauman DO 12/23/2020 Surgery Robbie iLmauman DO 12/22/2020 Procedures Robbie Langley DO 12/20/2020 Office visit JUSTIN MCGILL 12/09/2020 Surgery Robbie Langley DO 12/02/2020 Office visit Robbie Langley DO 11/29/2020 Office visit JUSTIN MCGILL 11/01/2020 Office visit JUSTIN MCGILL 10/27/2020 Office visit JUSTIN MCGILL 10/12/2020 Office visit JUSTIN MCGILL 09/27/2020 Office visit JUSTIN MCGILL 09/14/2020 Procedures Robbie Langley DO 08/26/2020 Office visit Yvon Howard NP 08/11/2020 Procedures Robbie Langley DO 08/05/2020 Surgery Robbie Bouman DO 07/30/2020 Procedures Robbie Bouman DO 07/28/2020 Office visit Yvon Anita SURVEY RESEARCH TEACHER 07/28/2020 Voided Yvon Howard SURVEY RESEARCH TEACHER 07/07/[address] Fadi Celestin MD [...]
--- OUTSIDE RECORDS SUMMARY | 2021-05-02 19:19 | XMS REPORT ---
Author Author Jeri Langley [facility] Address [address] [place], [place] [id number] Care Team Providers Care Residential Electrician Name Role Phone Robbie Langley PCP JUSTIN [...] by oral route once for 3 days [place] 5-325 mg oral tablet 05/27/2018 06/06/2018 take [...] route once every 6 hrs prn pain [place] 5-325 mg oral tablet 03/08/2020 04/07/2020 take [...] 4 % topical liquid 01/30/2018 02/11/2018 apply irrigation laborer ally as directed Diflucan 150 mg oral tablet 10/01/2018 01/31/2019 take 1 tablet (150 mg) by oral route once and one tablet in five days Flagyl 500 mg oral tablet 11/06/2018 01/06/2019 take 1 tablet by oral route twice a day for 7 days Hibiclens 4 % topical liquid 06/16/2019 05/03/2020 apply irrigation laborer ally as directed rifampin 300 mg oral capsule 07/07/2019 07/22/2019 rober e 1 capsule by oral route 2 times a day for 10 days [place] 5-325 mg oral tablet 08/27/2019 10/16/2019 take 1 tablet by oral route every 4-6 hours as needed for pain [place] 5-325 mg oral tablet 12/22/2019 12/22/2019 take [...] Percocet 10 mg-325 mg tablet 12/23/2020 01/18/2021 rboer e 1 tablet by oral route every [...] mL/min/1.73meGFR AA* >60 mL/min/1.73m 08/04/2020 8:00 AM [id number] NOT DETECTED History Of Immunizations Name Date [...] 10:06AM Encounter for examination following treatment at [facility] 2019 10:06AM Postoperative Follow-up May 18 [...] treatment at [facility] 2020 2:21PM Moderate Acute Rib pain Improving [...] 2:58PM Encounter for examination following treatment at [facility] 2020 2:58PM Cellulitis Dec 20 2020 2:58PM Poor venous access Jan 05 2021 2:14PM Hidradenitis suppurativa Jan 05 2021 2:14PM Cellulitis of neck Jan 17 2021 1:37PM Severe Chronic Poor venous access Jan 17 2021 1:37PM History of methicillin resistant Staph aureus Jan 17 2021 1 :37PM Pain management Jan 17 2021 1:37PM Encounter for examination following treatment at [facility] 2020 1:37PM Pain management Mar 09 2021 2:02PM Pilonidal cyst Mar 09 2021 2:02PM Cellulitis of buttock Mar 09 2021 2:02PM Poor venous access Apr 06 2021 9:06AM Hidradenitis suppurativa Apr 06 2021 9:06AM Payers Insurance Name Company Name Plan Name Plan Number Policy Number Trey cy Group Number Start Date [facility] - Community [facility] ealthCare RHC Comm [id number] N/[facility] Plan of [id number] N/A [place] Line Attendant Prog - RHC [place] Attendant Prog - C [id number] N/A [place] Medical Assistance [facility] Medical Nicky tance Prog [id number] N/A [place] Medical [facility] Medical Nicky tance Prog [id number] N/A History of Encounters Visit Date Visit Type Provider 04/07/2021 [facility] Robbie Langley DO 04/06/2021 Office visit [...] visit JUSTIN MCGILL 10/12/2020 Office visit JUSTIN NAIK PA 09/27/2020 Office visit JUSTIN NAIK PA 09/14/2020 Procedures Robbie Langley DO 08/26/2020 Office visit Yvon Howard RN PROVIDER RELATIONS 08/11/2020 Procedures Robbie Bouman DO 08/05/2020 Surgery Robbie Bouman DO 07/30/2020 Procedures Robbie Bouman DO 07/28/2020 Office visit Yvon Howard RN PROVIDER RELATIONS 07/28/2020 Voided Yvon Howard RN PROVIDER RELATIONS 07/07/[address] Fadi Celestin MD 07/01/2020 Office visit JUSTIN MCGILL 06/08/2020 Office visit JUSTIN MCGLIL 05/26/2020 Office visit Justin Wooten MD 05/18/2020 [...] Justin Wooten MD 08/20/2019 Office visit Justin Wootne MD 08/04/2019 Office visit Justin Wooten MD [...] Wooten MD 02/11/2018 Office visit Emma collier PRODUCTION SAMPLER 01/30/2018 Procedures Justin Wooten MD 01/18/2018 Office visit JUSTIN MCGILL 08/29/2013 [facility] Alisa Ojeda MD
--- OUTSIDE RECORDS SUMMARY | 2021-05-02 19:19 | XMS REPORT ---
Author Author Jeri Langley [facility] Address [address] [place], [place] [id number] Care Team Providers Care Director Of Business Continuity Name Role Phone Robbie Langley PCP JUSTIN [...] by oral route once for 3 days [place] 5-325 mg oral tablet 05/27/2018 06/06/2018 take [...] route once every 6 hrs prn pain [place] 5-325 mg oral tablet 03/08/2020 04/07/2020 take [...] 4 % topical liquid 01/30/2018 02/11/2018 apply pattern layout worker ally as directed Diflucan 150 mg oral tablet 10/01/2018 01/31/2019 take 1 tablet (150 mg) by oral route once and one tablet in five days Flagyl 500 mg oral tablet 11/06/2018 01/06/2019 take 1 tablet by oral route twice a day for 7 days Hibiclens 4 % topical liquid 06/16/2019 05/03/2020 apply pattern layout worker ally as directed rifampin 300 mg oral capsule 07/07/2019 07/22/2019 rober e 1 capsule by oral route 2 times a day for 10 days [place] 5-325 mg oral tablet 08/27/2019 10/16/2019 take 1 tablet by oral route every 4-6 hours as needed for pain [place] 5-325 mg oral tablet 12/22/2019 12/22/2019 take [...] mL/min/1.73meGFR AA* >60 mL/min/1.73m 08/04/2020 8:00 AM [id number] NOT DETECTED History Of Immunizations Name Date [...] 10:06AM Encounter for examination following treatment at [facility] 2019 10:06AM Postoperative Follow-up May 18 2020 [...] 2:58PM Encounter for examination following treatment at [facility] 2020 2:58PM Cellulitis Dec 20 2020 2:58PM Poor venous access Jan 05 2021 2:14PM Hidradenitis suppurativa Jan 05 2021 2:14PM Cellulitis of neck Jan 17 2021 1:37PM Severe Chronic Poor venous access Jan 17 2021 1:37PM History of methicillin resistant Staph aureus Jan 17 2021 1 :37PM Pain management Jan 17 2021 1:37PM Encounter for examination following treatment at [facility] 2020 1:37PM Pain management Mar 09 2021 2:02PM Pilonidal cyst Mar 09 2021 2:02PM Cellulitis of buttock Mar 09 2021 2:02PM Poor venous access Apr 06 2021 9:06AM Hidradenitis suppurativa Apr 06 2021 9:06AM Payers Insurance Name Company Name Plan Name Plan Number Policy Number Trey cy Group Number Start Date [facility] - [facility] - [facility] ealthCare RHC Comm [id number] [facility] Plan of [id number] N/A [place] Wildlife Enforcement Major Prog - RHC [place] Major Prog - RH C [id number] N/A [place] Medical Assistance [facility] Medical Nicky tance Prog [id number] N/A [place] Medical Assistance [facility] Medical Nicky tance Prog [id number] N/A History of Encounters Visit Date Visit Type Provider 04/06/2021 Office visit Robbie Langley DO 03/09/2021 Office visit JUSTIN MCGILL 01/28/2021 Office visit Robbie Langley DO 01/17/2021 Office visit JUSTIN MCGILL 01/06/2021 Surgery Robbie Langley DO 01/05/2021 Office visit 01/05/2021 Office visit Robbie Langley DO 12/28/2020 Surgery Robbie Langley DO 12/23/2020 Surgery Robbie Limauman DO 12/22/2020 Procedures Robbie Langley DO 12/20/2020 Office visit JUSTIN MCGILL 12/09/2020 Surgery Robbie Langley DO 12/02/2020 Office visit Robbie Langley DO 11/29/2020 Office visit JUSTIN MCGILL 11/01/2020 Office visit JUSTIN MCGILL 10/27/2020 Office visit JUSTIN MCGILL 10/12/2020 Office visit JUSTIN MCGILL 09/27/2020 Office visit JUSTIN MCGILL 09/14/2020 Procedures Robbie Langley DO 08/26/2020 Office visit Yvon Howard SPICE FUMIGATOR 08/11/2020 Procedures Robbie Langley DO 08/05/2020 Surgery Robbie Bouman DO 07/30/2020 Procedures Robbie Bouman DO 07/28/2020 Office visit Yvon Anita SPICE FUMIGATOR 07/28/2020 Voided Yvon Howard SPICE FUMIGATOR 07/07/[address] Fadi Celestin MD [...] Procedures Justin Wooten MD 11/20/2019 Office visit JUTSIN MCGILL 10/14/2019 Procedures Justin Wooten MD 08/27/2019 Office visit Justin Wooten MD 08/20/2019 Office visit Justin Wooten MD 08/04/2019 Office visit Justin Wooten MD 07/28/2019 Office visit Justni Wooten MD 07/22/2019 Office visit Justin Wooten [...] MD 01/18/2018 Office visit JUSTIN MCGILL 08/29/2013 [facility] Keesha Ojeda MD
--- OUTSIDE RECORDS SUMMARY | 2021-05-02 19:19 | XMS REPORT ---
Author Author Jeri Langley [facility] Address [address] [place], [place] [address] Care Team Providers Care Correspondence Review Clerk Name Role Phone Robbie Langley PCP ANDRES [...] route once every 6 hrs prn pain [place] 5-325 mg oral tablet 03/08/2020 04/07/2020 take [...] 4 % topical liquid 01/30/2018 02/11/2018 apply forestry hunter ally as directed Diflucan 150 mg oral tablet 10/01/2018 01/31/2019 take 1 tablet (150 mg) by oral route once and one tablet in five days Flagyl 500 mg oral tablet 11/06/2018 01/06/2019 take 1 tablet by oral route twice a day for 7 days Hibiclens 4 % topical liquid 06/16/2019 05/03/2020 apply forestry hunter ally as directed rifampin 300 mg oral capsule 07/07/2019 07/22/2019 rober e 1 capsule by oral route 2 times a day for 10 days [place] 5-325 mg oral tablet 08/27/2019 10/16/2019 take 1 tablet by oral route every 4-6 hours as needed for pain [place] 5-325 mg oral tablet 12/22/2019 12/22/2019 take [...] mL/min/1.73meGFR AA* >60 mL/min/1.73m 08/04/2020 8:00 AM [id number] NOT DETECTED History Of Immunizations Name Date [...] 10:06AM Encounter for examination following treatment at [facility] 2019 10:06AM Postoperative Follow-up May 18 2020 [...] 3:42PM Encounter for examination following treatment at [facility] 2020 2:21PM Moderate Acute Rib pain [...] 2:58PM Encounter for examination following treatment at [facility] 2020 2:58PM Cellulitis Dec 20 2020 2:58PM Poor venous access Jan 05 2021 2:14PM Hidradenitis suppurativa Jan 05 2021 2:14PM Cellulitis of neck Jan 17 2021 1:37PM Severe Chronic Poor venous access Jan 17 2021 1:37PM History of methicillin resistant Staph aureus Jan 17 2021 1 :37PM Pain management Jan 17 2021 1:37PM Encounter for examination following treatment at [facility] 2020 1:37PM Pain management Mar 09 2021 2:02PM Pilonidal cyst Mar 09 2021 2:02PM Cellulitis of buttock Mar 09 2021 2:02PM Poor venous access Apr 06 2021 9:06AM Hidradenitis suppurativa Apr 06 2021 9:06AM Payers Insurance Name Company Name Plan Name Plan Number Policy Number Trey cy Group Number Start Date [facility] - Community [facility] ealthCare RHC Comm [id number] [facility] [id number] N/A [place] Director Of Investigations Prog - RHC [place] Director Of Investigations Prog - C [id number] N/A [place] Medical Assistance [facility] Medical Nicky tance Prog [id number] N/A [place] Medical Assistance [facility] Medical Nicky tance Prog [id number] N/A History of Encounters Visit Date Visit [...] Bouman DO 08/26/2020 Office visit Yvon Howard DOUGHNUT ICER 08/11/2020 Procedures Robbie Bouman DO 08/05/2020 Surgery Robbie Bouman DO 07/30/2020 Procedures Robbie Bouman DO 07/28/2020 Office visit Yvonrebecca Howard DOUGHNUT ICER 07/28/2020 Voided Yvon Anita DOUGHNUT ICER 07/07/[address] Fadi Celestin MD [...] Office visit ANDRES MCGILL 04/02/2019 Procedures Andres Wootne MD 03/24/2019 Office visit ANDRES MCGILL 02/24/2019 Procedures Elio Julien DO 01/21/2019 Office visit ANDRES MCGILL 01/06/2019 Procedures Andres Wooten MD 10/31/2018 Office visit Hira QUINONES 10/30/2018 Procedures Andres Wooten MD 10/29/2018 Office visit Andres Wooten MD 09/25/2018 Procedures Andres Wootne MD 08/06/2018 Office visit Andres Wooten MD [...] Wooten MD 02/11/2018 Office visit Emma collier WEEDER THINNER 01/30/2018 Procedures Andres Wooten MD 01/18/2018 Office visit ANDRES MCGILL 08/29/2013 Felicita Ojeda MD
[2021-05-02 19:20] VITALS: BP 153/103
--- OUTSIDE RECORDS SUMMARY | 2021-05-02 19:20 | XMS REPORT ---
Author Author Jeri NAIK [facility] Address [address] [place], [place] [address] Care Team Providers Care Fisheries Specialist Name Role Phone JUSTIN NAIK PCP JUSTIN [...] by oral route 2 times a day Lasix 20 mg tablet 12/13/2020 take 1 tablet (20 mg) by oral route 2 times per day hydrocodone-acetaminophen 10-325 mg oral tablet 03/09/2021 take 1 tablet by oral route every 6 hours as needed for pain ondansetron 4 mg oral tablet,disintegrating 03/15/2021 dissolve [...] by oral route once for 3 days [place] 5-325 mg oral tablet 05/27/2018 06/06/2018 take [...] route once every 6 hrs prn pain [place] 5-325 mg oral tablet 03/08/2020 04/07/2020 take [...] 4 % topical liquid 01/30/2018 02/11/2018 apply gasoline tractor operator ally as directed Diflucan 150 mg oral tablet 10/01/2018 01/31/2019 take 1 tablet (150 mg) by oral route once and one tablet in five days Flagyl 500 mg oral tablet 11/06/2018 01/06/2019 take 1 tablet by oral route twice a day for 7 days Hibiclens 4 % topical liquid 06/16/2019 05/03/2020 apply gasoline tractor operator ally as directed rifampin 300 mg oral capsule 07/07/2019 07/22/2019 rober e 1 capsule by oral route 2 times a day for 10 days [place] 5-325 mg oral tablet 08/27/2019 10/16/2019 take 1 tablet by oral route every 4-6 hours as needed for pain [place] 5-325 mg oral tablet 12/22/2019 12/22/2019 take [...] oral route every 6 hours as needed Percocet 10 mg-325 mg tablet 12/23/2020 01/18/2021 rober e 1 tablet by oral route every 6 hours as needed oxycodone 5 mg tablet 01/17/2021 03/01/2021 take 1 tab let (5 mg) by oral route every 4 hours Problem List Description Status Onset Hidradenitis suppurativa [...] HC BMI BSA BMI Percentile O2 Sat(%) 01/28/2021 2:08:00 PM 152 mm[Hg] 103 mm[Hg] 89 {beats}/min 2 66.312 lbs 67 in 41.71 kg/m2 2.3896 m2 01/17/2021 1:35:00 PM 128 mm[Hg] 90 [...] mL/min/1.73meGFR AA* >60 mL/min/1.73m 08/04/2020 8:00 AM [id number] NOT DETECTED History Of Immunizations Name Date [...] 10:06AM Encounter for examination following treatment at [facility] 2019 10:06AM Postoperative Follow-up May 18 2020 [...] respiratory tract infection, unspecified type Sep 27 2 021 3:42PM Seasonal allergies Sep 27 2020 [...] 2:58PM Encounter for examination following treatment at [facility] 2020 2:58PM Cellulitis Dec 20 2020 2:58PM Poor venous access Jan 05 2021 2:14PM Hidradenitis suppurativa Jan 05 2021 2:14PM Cellulitis of neck Jan 17 2021 1:37PM Severe Chronic Poor venous access Jan 17 2021 1:37PM History of methicillin resistant Staph aureus Jan 17 2021 1 :37PM Pain management Jan 17 2021 1:37PM Encounter for examination following treatment at [facility] 2020 1:37PM Pain management Mar 09 2021 2:02PM Pilonidal cyst Mar 09 2021 2:02PM Cellulitis Sep 1 2021 2:02PM Payers Insurance Name Company Name Plan Name Plan Number Policy Number Trey cy Group Number Start Date [facility] - RHC - Community [facility] ealthCare RHC Comm [id number] N/A [facility] Plan of [id number] N/A [place] Structural Design Engineer Prog - RHC [facility] Asst Prog - RH C [id number] N/A [facility] Assistance [facility] Medical Nicky tance Prog [id number] N/A [facility] Assistance [facility] Medical Nicky tance Prog [id number] N/A History of Encounters Visit Date Visit Type Provider 03/09/2021 Office visit JUSTIN MCGILL 01/28/2021 Office visit Robbie Langley DO 01/17/2021 Office visit JUSTIN MCGILL 01/06/2021 Surgery Robbie Bouman DO 01/05/2021 Office visit 01/05/2021 Office visit Robbie Bouman DO 12/28/2020 Surgery Robbie Bouman DO 12/23/2020 Surgery Robbie Bouman DO 12/22/2020 Procedures Robbie Bouman DO 12/20/2020 Office visit JUSTIN MCGILL 12/09/2020 Surgery Robbie Bouman DO 12/02/2020 Office visit Robbie Bouman DO 11/29/2020 Office visit JUSTIN MCGILL 11/01/2020 Office visit JUSTIN MCGILL 10/27/2020 Office visit JUSTIN MCGILL 10/12/2020 Office visit JUSTIN MCGILL 09/27/2020 Office visit JUSTIN MCGILL 09/14/2020 Procedures Robbie Bouman DO 08/26/2020 Office visit Yvon Howard NP 08/11/2020 Procedures Robbie Bouman DO 08/05/2020 Surgery Robbie Bouman DO 07/30/2020 Procedures Orbbie Bouman DO 07/28/2020 Office visit Yvon Howard NP 07/28/2020 Voided Yvon Howard NP 07/07/[address] Fadi Celestin MD 07/01/2020 Office visit JUSTIN MCGILL 06/08/2020 Office visit JUSTIN MCGILL 05/26/2020 Office visit Justin Wooten MD 05/18/2020 Office visit Justin Wooten MD 05/07/2020 Surgery Justin Wooten MD 05/03/2020 Procedures Justin Wooten MD 03/08/2020 Office visit Justin Wooten MD 02/18/2020 Office visit Justin oWoten MD 02/04/2020 Procedures Justin Wooten MD 01/26/2020 [...]
--- NOTE | 2021-05-02 19:30 | ED Cough/URI ---
General Stated Complaint: BODY ACHES/COUGH/SOB/NEG COVID TEST Source: patient Exam Limitations: no limitations History of Present Illness Date Seen by Provider: May 02, 2021 Time Seen by Provider: 19:20 Initial Comments 30-year-old female with past medical history of hidradenitis suppurativa and has had multiple surgeries with this, poor vascular access and says she has a port placed roughly 3 weeks ago coming in due to body aches and chills that started last night. She says this is what she feels like when she gets pneumonia which is typically a yearly thing. Had Covid about 1-1/2 months ago. Has been tested weekly since then and finally had a negative test that was PCR yesterday. Has not had any cough, vomiting, diarrhea, dysuria, vaginal discharge, rash, or any other concerns. Eating and drinking normally. Allergies and Home Medications Allergies Coded Allergies: Penicillins (Verified Allergy, Unknown, 05/16/20) Sulfa (Sulfonamide Antibiotics) (Verified Allergy, Unknown, 05/16/20) azithromycin (Verified Allergy, Unknown, 05/16/20) ketorolac (Verified Allergy, Unknown, 05/16/20) latex (Verified Allergy, Unknown, 05/16/20) tramadol (Verified Allergy, Unknown, 05/16/20) Patient Home Medication List Home Medication List Reviewed: Yes Cephalexin (Keflex) 500 Mg Capsule, 500 MG PO TIDAC Prescribed by: NIMA URBAN on 05/16/20 0119 Cephalexin (Cephalexin) 500 Mg Tablet, 500 MG PO QID Prescribed by: WAYNE SMITH on 08/08/202252 Doxycycline Hyclate (Doxycycline Hyclate) 100 Mg Tablet, 100 MG PO BID Prescribed by: JOHN MONSALVE on 08/20/202139 Hydrocodone/Acetaminophen (Hydrocodone-Acetamin 5-325 mg) 1 Each Tablet, 1 TAB PO Q6H PRN for PAIN-MODERATE (5-7) Prescribed by: JOHN MONSALVE on 08/20/202140 Ondansetron (Ondansetron Odt) 4 Mg Tab.rapdis, 4 MG PO Q4H Prescribed by: WAYNE SMITH on 08/08/202252 Ondansetron (Ondansetron Odt) 8 Mg Tab.rapdis, 8 MG PO Q6H PRN for NAUSEA/VOMITING Prescribed by: JOHN MONSALVE on 08/20/20 2140 Oxycodone HCl/Acetaminophen (Percocet 5-325 mg Tablet) 1 Each Tablet, 1-2 TAB PO Q6H PRN for PAIN-BREAKTHROUGH Prescribed by: NIMA URBAN on 05/16/20 0119 Prednisone (Prednisone) 20 Mg Tab, 40 MG PO DAILY Prescribed by: WAYNE SMITH on 03/30/20 0251 Prednisone (Prednisone) 20 Mg Tab, 40 MG PO DAILY Prescribed by: WAYNE SMITH on 04/24/20 0058 Review of Systems Review of Systems Constitutional: chills; No fever EENTM: no symptoms reported Respiratory: No cough, No short of breath Cardiovascular: No chest pain Gastrointestinal: No abdominal pain, No nausea, No vomiting Genitourinary: no symptoms reported Musculoskeletal: no symptoms reported Skin: no symptoms reported Psychiatric/Neurological: No Symptoms Reported Hematologic/Lymphatic: No Symptoms Reported Immunological/Allergic: no symptoms reported All Other Systems Reviewed Negative Unless Noted: Yes Past Nutqrhk-Kassvj-Vuutio Hx Immunizations Up To Date Tetanus Booster (TDap): Less than 5yrs PED Vaccines UTD: Yes Seasonal Allergies Seasonal Allergies: No Past Medical History Surgeries: Yes (MULT. 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 oz. kg; 39.00 BMI Method: General Appearance: WD/WN, no apparent distress HEENT: PERRL/EOMI, normal ENT inspection, pharynx normal Neck: non-tender, full range of motion, supple, normal inspection Respiratory: chest non-tender, lungs clear, normal breath sounds, no respiratory distress, no accessory muscle use Cardiovascular: regular rate, rhythm, no edema, no murmur Gastrointestinal: normal bowel sounds, non tender, soft, no organomegaly, no pulsatile mass Extremities: normal range of motion, non-tender, normal inspection, no pedal edema, no calf tenderness, normal capillary refill Neurologic/Psychiatric: no motor/sensory deficits, alert, normal mood/affect Skin: normal color, warm/dry Lymphatic: no adenopathy Progress/Results/Core Measures Suspected Sepsis SIRS Temperature: Pulse: Respiratory Rate: Blood Pressure / Mean: Results/Orders Lab Results Laboratory Tests Test 05/02/21 19:28 Range/Units Influenza Type A Antigen NEGATIVE NEGATIVE Influenza Type B Antigen NEGATIVE NEGATIVE My Orders Orders - CHARLEY TRUJILLO MD Chest 1 View, Ap/Pa Only (05/02/21 19:27) Influenza A & B Antigens (05/02/21 19:27) Blood Culture (05/02/21 20:37) Ed Iv/Invasive Line Start (05/02/21 20:37) Vital Signs Adult Sepsis Patie Q15M (05/02/21 20:37) O2 (05/02/21 20:37) Remove Rings In Anticipation O (05/02/21 20:37) Vital Signs/I&O 05/02/21 19:20 Temp 38.2 Pulse 106 Resp 20 B/P (MAP) 153/103 (120) Pulse Ox 98 O2 Delivery Room Air Capillary Refill : Progress Note : Progress Note 30-year-old female with above history coming in due to body aches for less than 24 hours. ABCs were intact and vitals were stable on presentation. Physical exam reassuring and she is well-appearing although febrile She did not report placed roughly 3 weeks ago and the skin surrounding this appears completely healed and no signs of infection. He is afebrile here and no signs of significant infection. Chest x-ray ordered because the patient states this is how she feels when she typically gets pneumonia about yearly. Flu test also sent. Chest x-ray negative for any acute findings. Flu is negative as well. This is likely some other viral cause. I am worried that she did have the port recently placed, but well appearing here in the skin site appears well. I ordered blood cultures, but we were unable to obtain after 2 sticks, and after this the patient was adamant that she wanted to go home.. Offered other labs and IV fluids but she wants to go home. She says she will follow up with her primary doctor tomorrow and will get labs drawn. I will recommend she is discharged with very close follow-up, and if she develops any fever at all she needs to report immediately to the ER. Diagnostic Imaging Diagonstic Imaging: Xray Plain Films/CT/US/NM/MRI: chest Comments [facility]. [place], [place] NAME: TOMY ESPINO [facility] REC#: [id number] PT STATUS: REG ER : 1990 PHYSICIAN: CHARLEY TRUJILLO MD ADMIT DATE: 05/02/21/ER Draft Date of Exam:05/02/21 CHEST 1 VIEW, AP/PA ONLY Portable chest COMPARED to a prior study from January 18, 2020. INDICATION: Cough and shortness of breath. FINDINGS: There is a right-sided internal jugular port terminating within the upper aspect of the SVC. The lungs demonstrate no dense alveolar consolidation. There is no effusion. There is no pneumothorax. Heart size and mediastinal contours appear appropriate without current evidence of failure. There is no suspicious osseous abnormality. IMPRESSION: 1. No radiographic evidence of an acute cardiopulmonary process. Dictated on workstation # [id number] Dict: 05/02/212005 Trans: 05/02/212008 [facility] [id number] Interpreted by: JAMAR WASHBURN MD Electronically signed by: Departure Impression Primary Impression: Fever Qualified Codes: R50.9 - Fever, unspecified Disposition: 01 HOME, SELF-CARE Condition: Stable Departure-Patient Inst. Decision time for Depature: 20:28 Referrals: ANDRES NAIK (PCP/Family) Primary Care Physician Patient Instructions: Cough, Runny Nose, and the Common Cold (DC), Fever of Unknown Origin (DC) Add. Discharge Instructions: Your flu test was negative and you stated your Covid test was negative recently. Your chest x-ray looks good without any signs of pneumonia. If you develop any fever at all I will recommend that you come back to the ER since her port was recently placed. Fever for me would be any temperature greater than 100.4 F. Otherwise drink plenty of fluids and take Tylenol or ibuprofen for your body aches. Please be sure to follow-up with your doctor tomorrow and have labs drawn. If anything changes all then please come back to the ER or call 911. CHARLEY TRUJILLO MD May 02, 2021 19:30
--- NOTE | 2021-05-02 20:09 | Diagnostic Imaging Report ---
Portable chest COMPARED to a prior study from January 18, 2020. INDICATION: Cough and shortness of breath. FINDINGS: There is a right-sided internal jugular port terminating within the upper aspect of the SVC. The lungs demonstrate no dense alveolar consolidation. There is no effusion. There is no pneumothorax. Heart size and mediastinal contours appear appropriate without current evidence of failure. There is no suspicious osseous abnormality. IMPRESSION: 1. No radiographic evidence of an acute cardiopulmonary process. Dictated by: Dictated on workstation # [id number]
[2021-05-02] MEDS ORDERED: LACTATED RINGERS 1,000 ML IV ONE (20:45)
== END 2021-05-02 20:59 | disposition home or self-care (01) ==
LOC: EDUNIT# 19:12 → ER 19:14
DX: R50.9 Fever, unspecified (principal); E66.9 Obesity, unspecified; Z68.39 Body mass index [BMI] 39.0-39.9, adult; Z86.16 Personal history of COVID-19; Z79.52 Long term (current) use of systemic steroids
CPT/HCPCS: 71045; 87804

== ENCOUNTER 2021-07-10 22:59 | Emergency (ER) | payer MEDICAID ==
[~2021-07-10] VITALS: Ht 170 cm; Wt 119.3 kg
--- OUTSIDE RECORDS SUMMARY | 2021-07-10 23:05 | XMS REPORT | Clinical Summary ---
Author Author [facility] Organization [facility] Address Unknown Phone Unavailable Care Team Providers Care Support Worker Name Role Phone Abdirahman Rios MD PCP Alex Mccurdy MD Unavailable Source Comments Some departments are not documenting in the electronic medical record. If you d o not see the information that you expected, contact Release of Information in [facility] [employer] Information Management department at [phone] for further assistan ce in locating additional records.[facility] Allergies Comments Active Allergy Reactions Severity Noted [...] Used Current Every Day Smoker Cigarettes 0.5 Comments Alcohol Use Standard Drinks/Week Not Asked 0 (1 standard drink = 0.6 o z pure alcohol) Sex Assigned at Date Recorded Not on file Last Filed Vital Signs Reading Time Taken Comments Vital Sign 145/91 06/27/2016 1:28 PM [employer] Blood Pressure 86 06/27/2016 1:28 PM [employer] Pulse - - Temperature 14 06/27/2016 1:28 PM [employer] Respiratory Rate - - Oxygen Saturation - - Inhaled Oxygen Concentration 99.8 kg (220 lb) 06/27/2016 1:28 PM [employer] Weight 160 cm (5' 3") 06/27/2016 1:28 PM [employer] Height 38.97 06/27/2016 1:28 PM [employer] Body Mass Index Plan of Treatment Health Maintenance Due Date Last Done Comments HIV SCREENING 2005 DTAP/TDAP VACCINES (1 - 2008 Tdap) HEPATITIS C SCREENING 2008 PHYSICAL (COMPREHENSIVE) 2008 EXAM CERVICAL CANCER SCREENING 09/12/2011 INFLUENZA VACCINE 02/06/2021 Results Not on filefrom Last 3 Months Insurance Type Payer Benefit Subscriber ID Effective Phone Address Plan / Dates Group Medicaid UHC MEDICAID [place] UHC [id number] 2012-P [address] [facility] [address] [place] [address] Advance Directives Patient 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
--- OUTSIDE RECORDS SUMMARY | 2021-07-10 23:05 | XMS REPORT ---
Author Author Jeri Langley [facility] Address [address] [place], [place] [id number] Care Team Providers Care Guest House Manager Name Role Phone Robbie Langley PCP ANDRES NAIK PreferredProvider Allergies and Adverse Reactions Name Reaction Notes tramadol Toradol Bactrim DS chest pain Zithromax Latex Ancef PENICILLINS Plan of Treatment Planned Activity Comments Planned Date Planned Time Plan/Goal Aerosol Tx 11/01/2020 12:00 AM CBC W/ AUTO DIFF (RFLX MAN DIFF IF IND). 05/09/2021 12:00 AM Blood culture 05/09/2021 12:00 AM FLUOROSCOPY < 1 HOUR 07/06/2021 12:00 AM Medications Active Name Start Date Estimated Completion Date SIG Co mments albuterol sulfate 2.5 mg/3 mL (0.083 %) solution for nebulizatio n 11/01/2020 used in Small Volume Nebulizer QID PRN minocycline 100 mg oral tablet t vitor 1 tablet (100 mg) by oral route once daily at bedtime Ondansetron 4 MG Oral Tablet Disintegrating 06/22/202107/24 DISSOLVE 1 TABLET IN MOUTH EVERY 6 HOURS NEEDED sumatriptan 50 mg tablet 06/30/2021 07/26/2021 TAKE 1 TABLET BY MOUTH AT ONSET OF MIGRAINE; MAY REPEAT IN 1 HOUR clindamycin HCl 300 mg oral capsule 06/30/2021 07/07/2021 take 1 capsule (300 mg) by oral route 2 times per day for 7 days oxycodone-acetaminophen 10-325 mg oral tablet 07/06/2021 1 tablet by oral route every 8 hours PRN pain Name Start Date Expiration Date SIG [...] by oral route once for 3 days Marathon 5-325 mg oral tablet 05/27/2018 06/06/2018 take [...] route once every 6 hrs prn pain Marathon 5-325 mg oral tablet 03/08/2020 04/07/2020 take [...] TABLET IN MOUTH EVERY 6 HOURS NEEDED clindamycin HCl 300 mg oral capsule 03/09/2021 03/19/2021 take 1 capsule (300 mg) by oral route every 6 hours for 10 days ondansetron 4 mg oral tablet,disintegrating 03/15/2021 dissolve 1 tablet by oral route 3 times a day as needed Ondansetron 4 MG Oral Tablet Disintegrating 04/12/202105/14 DISSOLVE 1 TABLET IN MOUTH EVERY 6 HOURS NEEDED levofloxacin 500 mg oral tablet 05/04/2021 05/14/2021 take 1 tablet (500 mg) by oral route once daily for 10 days minocycline 100 mg oral tablet t vitor 1 tablet (100 mg) by oral route once daily at bedtime levofloxacin 500 mg oral tablet 06/09/2021 06/19/2021 take 1 tablet (500 mg) by oral route once daily for 10 days prednisone 20 mg oral tablet 06/09/2021 4x2 days, 3x 2 days, 2x2 days, 1x1 days Discontinued Name Start Date Discontinued Date SIG Comments lisinopril oral 06/11/2018 Lyrica oral 06/11/2018 estradiol 1 mg oral tablet 02/11/2018 Hibiclens 4 % topical liquid 01/30/2018 02/11/2018 apply automotive accessory installer ally as directed Diflucan 150 mg oral tablet 10/01/2018 01/31/2019 take 1 tablet (150 mg) by oral route once and one tablet in five days Flagyl 500 mg oral tablet 11/06/2018 01/06/2019 take 1 tablet by oral route twice a day for 7 days Hibiclens 4 % topical liquid 06/16/2019 05/03/2020 apply automotive accessory installer ally as directed rifampin 300 mg oral capsule 07/07/2019 07/22/2019 rober e 1 capsule by oral route 2 times a day for 10 days Marathon 5-325 mg oral tablet 08/27/2019 10/16/2019 take 1 tablet by oral route every 4-6 hours as needed for pain Marathon 5-325 mg oral tablet 12/22/2019 12/22/2019 take [...] to exceed 30 mL in 24 hours gabapentin 300 mg oral capsule 11/09/2020 07/05/2021 t vitor 1 capsule by oral route 2 times a day hydrocodone 5 mg-acetaminophen 325 mg tablet 12/09/202012/07 [...] every 6 hours as needed for pain oxycodone 5 mg oral tablet 04/07/2021 05/05/2021 Take one or two every six hours as needed for severe pain do no exceed five daily. Problem List Description Status Onset Hidradenitis suppurativa [...] HC BMI BSA BMI Percentile O2 Sat(%) 07/05/2021 9:18:00 AM 164 mm[Hg] 115 mm[Hg] 91 {beats}/min 96.8 F 263 lbs 67 in 41.1912 kg/m2 2.3747 m2 06/30/2021 9:57:00 AM 140 mm[Hg] 100 mm[Hg] 104 {beats}/min 97.9 F 265.5 lbs 67 in 41.58 kg/m2 2.39 m2 99 % 05/25/2021 1:25:00 PM 154 mm[Hg] 101 mm[Hg] 83 {beats}/min 20 rpm 97 F 264 lbs 67 in 41.3478 kg/m2 2.3792 m2 05/04/2021 9:41:00 AM 124 mm[Hg] 72 mm[Hg] 16 {beats}/min 16 rpm 98.2 F 264 lbs 99 % 04/06/2021 9:01:00 AM 161 mm[Hg] 113 mm[Hg] [...] F 230 lbs 65 in 38.2736 kg/m2 2.19 m2 98 % 10/31/2018 11:44:00 AM 130 mm[Hg] 84 mm[Hg] 86 {beats}/min 18 rpm 98.2 F 236 lbs 65 in 39.27 kg/m2 2.2157 m2 99 % 10/29/2018 2:33:00 PM 160 mm[Hg] 100 mm[Hg] 96 {beats}/min 20 rpm 98.4 F 235 lbs 65 in 39.1056 kg/m2 2.21 m2 99 % 09/25/2018 12:01:00 PM 158 mm[Hg] 110 mm[Hg] 90 {beats}/min 20 rpm 97.7 F 240 lbs 65 in 39.94 kg/m2 2.2344 m2 97 % 08/06/2018 1:54:00 PM 130 mm[Hg] 96 mm[Hg] 99 {beats}/min 20 rpm 97.7 F 241 lbs 65 in 40.1041 kg/m2 2.24 m2 98 % 07/24/2018 7:49:00 AM 184 mm[Hg] 110 mm[Hg] 108 {beats}/min 20 rpm 98.6 F 243 lbs 65 in 40.44 kg/m2 2.2483 m2 99 % 07/16/2018 9:09:00 AM 160 mm[Hg] 86 mm[Hg] 107 {beats}/min 20 rpm 98.1 F 241 lbs 65 in 40.1041 kg/m2 2.24 m2 99 % 07/03/2018 11:47:00 AM 116 mm[Hg] 80 mm[Hg] 81 {beats}/min 16 rpm 97.9 F 241 lbs 65 in 40.10 kg/m2 2.2391 m2 98 % 06/24/2018 1:44:00 [...] Reviewed 11/01/2020 12:00 AM Decadron 8mg Injection, [facility] Medicaid Rev iewed 04/21/2021 12:00 AM DRUG SCREEN URINE Returned 05/04/2021 12:00 AM THERAPEUTIC PROPHYLACTIC/DX INJECTION PADILLA BQ/IM Reviewed 05/04/2021 12:00 AM Decadron 8mg Injection, [facility] Medicaid Rev iewed 05/04/2021 12:00 AM Depo-Medrol 80 Mg Injection, [facility] Medicai d Reviewed 05/04/2021 12:00 AM Rocephin 1 gram Injection, [facility] Medicaid Reviewed 05/25/2021 12:00 AM COMPLETE CBC W/AUTO DIFF WBC Reviewed Results Summary Date and Description Results [...] mL/min/1.73meGFR AA* >60 mL/min/1.73m 08/04/2020 8:00 AM [id number] NOT DETECTED 05/25/2021 1:55 PM WBC 10.2 RBC 5.00 HGB 13.40 g/dLHCT 41.90 %MCV 84.0 fLMCH 26.80 pgMCHC 32.0 g/dLRDW SD 41 %RDW CV 13.30 %MPV 9.10 fLPLT 285 x10E3/uLNRBC# 0.00 NRBC% 0.0 %NEUT 61.3 %LYMP 29.6 %MONO 6.9 %EOS 1.3 %BASO 0.3 #NEUT 6.26 #LYMP 3.03 #MONO 0.71 #EOS 0.13 #BASO 0.03 MANUAL DIFF NOT IND History Of Immunizations Name Date Admin Mfg Name Mfg Code Trade Name Lot# Route Inj Vis Given Vis Pub CVX Influenza 05/01/2019 Not Entered NE FLUVIRIN-PRESERVATIVE FREE Not Entered Not Entered 05/01/2019 07/09/2021 150 History of Past Illness Name Date of Onset Comments Anxiety Hidradenitis suppurativa 01/21/2018 Other chronic pain 01/21/2018 [...] 10:06AM Encounter for examination following treatment at [facility] 2019 10:06AM Postoperative Follow-up May 18 [...] 3:42PM Encounter for examination following treatment at [facility] 2020 2:21PM Moderate Acute Rib [...] 2:58PM Encounter for examination following treatment at [facility] 2020 2:58PM Cellulitis Dec 20 2020 2:58PM Poor venous access Jan 05 2021 2:14PM Hidradenitis suppurativa Jan 05 2021 2:14PM Cellulitis of neck Jan 17 2021 1:37PM Severe Chronic Poor venous access Jan 17 2021 1:37PM History of methicillin resistant Staph aureus Jan 17 2021 1 :37PM Pain management Jan 17 2021 1:37PM Encounter for examination following treatment at [facility] 2020 1:37PM Pain management Mar 09 2021 2:02PM Pilonidal cyst Mar 09 2021 2:02PM Cellulitis of buttock Mar 09 2021 2:02PM Poor venous access Apr 06 2021 9:06AM Hidradenitis suppurativa Apr 06 2021 9:06AM Long-term use of high-risk medication Apr 21 2021 4:05PM Chest congestion May 04 2021 9:41AM Nasal congestion with rhinorrhea May 04 2021 9:41AM Acute bronchitis, unspecified organism May 04 2021 9:41AM MRSA (methicillin resistant staph aureus) culture positive N ov 2020 5:09PM Port-A-Cath in place May 09 2021 5:09PM Preoperative examination May 25 2021 1:27PM Hidradenitis suppurativa May 25 2021 1:27PM Breast abscess May 25 2021 1:27PM Thigh abscess May 25 2021 1:27PM Medication management Jun 08 2021 6:41AM Violation of narcotic use agreement Jun 08 2021 6:41AM Medication care plan discussed with patient Jun 08 2021 6:4 1AM Hidradenitis suppurativa Jun 30 2021 10:03AM Hidradenitis suppurativa Jul 05 2021 9:19AM Abscess of thigh Jul 05 2021 9:19AM Abscess of left buttock Jul 05 2021 9:19AM Abscess of breast Jul 05 2021 9:19AM Port-A-Cath in place Jul 06 2021 1:47PM Payers Insurance Name Company Name Plan Name Plan Number Policy Number Trey cy Group Number Start Date [facility] ealthCare RHC Comm [id number] [facility] [id number] N/A [place] [employer] - RHC [place] [employer] Pro[employer] - C [id number] N/A [place] [facility] Medical [employer] Prog [id number] N/A [place] [facility] Medical [employer] t[employer] Prog [id number] N/A History of Encounters Visit Date Visit Type Provider 07/06/2021 [facility] Robbie Langley DO 07/05/2021 Office visit Robbie Langley DO 06/30/2021 Office visit Juno Morgan GANG SAW OPERATOR 06/15/2021 Surgery Robbie Langley DO 06/07/2021 Office visit ANDRES MCGILL 05/26/2021 [facility] Robbie Langley DO 05/25/2021 Office visit Robbie Langley DO 05/04/2021 Office visit ANDRES MCGILL 04/26/2021 Surgery Robbie Langley DO 04/07/2021 [facility] Robbie Langley DO 04/06/2021 Office visit Robbie Langley DO 03/09/2021 Office visit ANDRES MCGILL 01/28/2021 Office visit Robbie Langley DO 01/17/2021 Office visit ANDRES MCGILL 01/06/2021 Surgery Robbie Langley DO 01/05/2021 Office visit 01/05/2021 Office visit Robbie Bouman DO 12/28/2020 Surgery Robbie Bouman DO 12/23/2020 Surgery Robbie Bouman DO 12/22/2020 Procedures Robbie Bouman DO 12/20/2020 Office visit ANDRES NAIK PA 12/09/2020 Surgery Robbie Bouman DO 12/02/2020 Office visit Robbie Bouman DO 11/29/2020 Office visit ANDRES MCGILL 11/01/2020 Office visit ANDRES NAIK PA 10/27/2020 Office visit ANDRES MCGILL 10/12/2020 Office visit ANDRES MCGILL 09/27/2020 Office visit ANDRES MCGILL 09/14/2020 Procedures Robbie Bouman DO 08/26/2020 Office visit Yvon Howard TRANSPORTATION SUPERINTENDENT 08/11/2020 Procedures Robbie Bouman DO 08/05/2020 Surgery Robbie Bouman DO 07/30/2020 Procedures Robbie Bouman DO 07/28/2020 Office visit Yvon Howard TRANSPORTATION SUPERINTENDENT 07/28/2020 Voided Yvon Howard TRANSPORTATION SUPERINTENDENT 07/07/[address] Fadi Celestin MD [...] Office visit ANDRES MCGILL 01/06/2019 Procedures Andres Wootne MD 10/31/2018 Office visit Hira Jennings PRN 10/30/2018 Procedures Andres Wooten MD [...] Wooten MD 02/11/2018 Office visit Emma collier GANG SAW OPERATOR 01/30/2018 Procedures Andres Wooten MD 01/18/2018 Office visit ANDRES MCGILL 08/29/2013 [facility] Keesha Ojeda MD
--- OUTSIDE RECORDS SUMMARY | 2021-07-10 23:06 | XMS REPORT ---
Author Author Jeri Langley [facility] Address [address] [place], [place] [address] Care Team Providers Care Pharmacogeneticist Name Role Phone Robbie Langley PCP JUSTIN NAIK PreferredProvider Allergies and Adverse Reactions Name Reaction Notes tramadol Toradol Bactrim DS chest pain Zithromax Latex Ancef PENICILLINS Plan of Treatment Planned Activity Comments Planned Date Planned Time Plan/Goal Aerosol Tx 11/01/2020 12:00 AM CBC W/ AUTO DIFF (RFLX MAN DIFF IF IND). 05/09/2021 12:00 AM Blood culture 05/09/2021 12:00 AM Medications Active Name Start Date Estimated Completion Date SIG Co mments albuterol sulfate 2.5 mg/3 mL (0.083 %) solution for nebulizatio n 11/01/2020 used in Small Volume Nebulizer QID PRN gabapentin 300 mg oral capsule 11/09/2020 t vitor 1 capsule by oral route 2 times a day oxycodone-acetaminophen 10-325 mg oral tablet 05/20/2021 1 tablet by oral route every 8 hours PRN pain minocycline 100 mg oral tablet t vitor 1 tablet (100 mg) by oral route once daily at bedtime Name Start Date Expiration Date SIG Comments [...] by oral route once for 3 days [place] 5-325 mg oral tablet 05/27/2018 06/06/2018 take [...] route once every 6 hrs prn pain [place] 5-325 mg oral tablet 03/08/2020 04/07/2020 take [...] by oral route once daily at bedtime Discontinued Name Start Date Discontinued Date SIG Comments lisinopril oral 06/11/2018 Lyrica oral 06/11/2018 estradiol 1 mg oral tablet 02/11/2018 Hibiclens 4 % topical liquid 01/30/2018 02/11/2018 apply pharmacogeneticist ally as directed Diflucan 150 mg oral tablet 10/01/2018 01/31/2019 take 1 tablet (150 mg) by oral route once and one tablet in five days Flagyl 500 mg oral tablet 11/06/2018 01/06/2019 take 1 tablet by oral route twice a day for 7 days Hibiclens 4 % topical liquid 06/16/2019 05/03/2020 apply pharmacogeneticist ally as directed rifampin 300 mg oral capsule 07/07/2019 07/22/2019 rober e 1 capsule by oral route 2 times a day for 10 days [place] 5-325 mg oral tablet 08/27/2019 10/16/2019 take 1 tablet by oral route every 4-6 hours as needed for pain [place] 5-325 mg oral tablet 12/22/2019 12/22/2019 take 1 tablet by oral route everyday doxycycline hyclate 100 mg oral tablet 03/08/2020 take 1 tablet (100 mg) by oral [...] HC BMI BSA BMI Percentile O2 Sat(%) 05/25/2021 1:25:00 PM 154 mm[Hg] 101 mm[Hg] [...] F 252 lbs 67 in 39.4684 kg/m2 2.32 m2 97 % 05/18/2020 11:05:00 AM 124 mm[Hg] 82 mm[Hg] 102 {beats}/min 18 rpm 98.1 F 252 lbs 67 in 39.47 kg/m2 2.3245 m2 98 % 05/03/2020 11:21:00 AM 162 mm[Hg] 100 mm[Hg] 102 {beats}/min 18 rpm 97. 3 F 252 lbs 67 in 39.4684 kg/m2 2.32 m2 100 % 03/08/2020 3:01:00 [...] Reviewed 11/01/2020 12:00 AM Decadron 8mg Injection, [facility] Medicaid Rev iewed 04/21/2021 12:00 AM DRUG SCREEN URINE Returned 05/04/2021 12:00 AM THERAPEUTIC PROPHYLACTIC/DX INJECTION PADILLA BQ/IM Reviewed 05/04/2021 12:00 AM Decadron 8mg Injection, [facility] Medicaid Rev iewed 05/04/2021 12:00 AM Depo-Medrol 80 Mg Injection, [facility] Medicai d Reviewed 05/04/2021 12:00 AM Rocephin 1 gram Injection, [facility] Medicaid Reviewed 05/25/2021 12:00 AM COMPLETE CBC [...] mL/min/1.73meGFR AA* >60 mL/min/1.73m 08/04/2020 8:00 AM [id number] NOT DETECTED 05/25/2021 1:55 PM WBC 10.2 [...] Illness Name Date of Onset Comments Anxiety Chronic pain Hidradenitis suppurativa 01/21/2018 Other chronic [...] 10:06AM Encounter for examination following treatment at [facility] 2019 10:06AM Postoperative Follow-up May 18 [...] examination following treatment at [facility] r 2020 2:21PM Moderate Acute Rib [...] 2:58PM Encounter for examination following treatment at [facility] 2020 2:58PM Cellulitis Dec 20 2020 2:58PM Poor venous access Jan 05 2021 2:14PM Hidradenitis suppurativa Jan 05 2021 2:14PM Cellulitis of neck Jan 17 2021 1:37PM Severe Chronic Poor venous access Jan 17 2021 1:37PM History of methicillin resistant Staph aureus Jan 17 2021 1 :37PM Pain management Jan 17 2021 1:37PM Encounter for examination following treatment at [facility] 2020 1:37PM Pain management Mar [...] (methicillin resistant staph aureus) culture positive N 2020 5:09PM Port-A-Cath in place May 09 2021 5:09PM Preoperative examination May 25 2021 1:27PM Hidradenitis suppurativa May 25 2021 1:27PM Breast abscess May 25 2021 1:27PM Thigh abscess May 25 2021 1:27PM Payers Insurance Name Company Name Plan Name Plan Number Policy Number [facility] Group Number Start Date [facility] [id number] [facility] [id number] N/A [place] [employer] Prog - RHC [facility] Asst Prog - [facility] [id number] N/A [place] Medical Assistance [facility] Medical Nicky tance Prog [id number] N/A [place] Medical Assistance [facility] Medical Nicky tance Prog [id number] N/A History of Encounters Visit Date Visit Type Provider 05/25/2021 Office visit Robbie Langley DO 05/04/2021 Office visit JUSTIN MCGILL 04/26/2021 Surgery Robbie Langley DO 04/07/2021 Hospital Robbie Langley DO 04/06/2021 Office visit Robbie Langley DO 03/09/2021 Office visit JUSTIN MCGILL 01/28/2021 Office visit Robbie Bouman DO 01/17/2021 Office visit JUSTIN NAIK PA 01/06/2021 Surgery Robbie Bouman DO 01/05/2021 Office [...] Bouman DO 08/26/2020 Office visit Yvon Howard CIRCUIT WALKER 08/11/2020 Procedures Robbie Bouman DO 08/05/2020 Surgery Robbie Bouman DO 07/30/2020 Procedures Robbie Bouman DO 07/28/2020 Office visit Yvon Howard CIRCUIT WALKER 07/28/2020 Voided Yvon Howard CIRCUIT WALKER 07/07/[address] Fadi Celestin MD [...] visit Justin Wooten MD 12/15/2019 Procedures Elio Juilen DO 12/12/2019 Office visit Elio Julien DO [...] visit JUSTIN MCGILL 08/29/2013 [facility] Alisa Ojeda MD
--- OUTSIDE RECORDS SUMMARY | 2021-07-10 23:06 | XMS REPORT ---
Author Author Jeri Langley [facility] Address [address] [place], [place] [id number] Care Team Providers Care Hazardous Materials Driver Name Role Phone Robbie Langley PCP JUSTIN [...] 3x 2 days, 2x2 days, 1x1 days Name Start Date Expiration Date SIG [...] by oral route once for 3 days [place] 5-325 mg oral tablet 05/27/2018 06/06/2018 take [...] route once every 6 hrs prn pain [place] 5-325 mg oral tablet 03/08/2020 04/07/2020 take [...] 4 % topical liquid 01/30/2018 02/11/2018 apply maintenance service technician ally as directed Diflucan 150 mg oral tablet 10/01/2018 01/31/2019 take 1 tablet (150 mg) by oral route once and one tablet in five days Flagyl 500 mg oral tablet 11/06/2018 01/06/2019 take 1 tablet by oral route twice a day for 7 days Hibiclens 4 % topical liquid 06/16/2019 05/03/2020 apply maintenance service technician ally as directed rifampin 300 mg oral capsule 07/07/2019 07/22/2019 rober e 1 capsule by oral route 2 times a day for 10 days [place] 5-325 mg oral tablet 08/27/2019 10/16/2019 take 1 tablet by oral route every 4-6 hours as needed for pain [place] 5-325 mg oral tablet 12/22/2019 12/22/2019 take [...] Reviewed 11/01/2020 12:00 AM Decadron 8mg Injection, [facility] Medicaid Rev iewed 04/21/2021 12:00 AM DRUG SCREEN URINE Returned 05/04/2021 12:00 AM THERAPEUTIC PROPHYLACTIC/DX INJECTION PADILLA BQ/IM Reviewed 05/04/2021 12:00 AM Decadron 8mg Injection, [facility] Medicaid Rev iewed 05/04/2021 12:00 AM Depo-Medrol 80 Mg Injection, [facility] Medicai d Reviewed 05/04/2021 12:00 AM Rocephin 1 gram Injection, [facility] Medicaid Reviewed 05/25/2021 12:00 AM COMPLETE CBC [...] mL/min/1.73meGFR AA* >60 mL/min/1.73m 08/04/2020 8:00 AM [id number] NOT DETECTED 05/25/2021 1:55 PM WBC 10.2 [...] Severe Chronic Recurrent Hidradenitis Suppurativa Jan 18 8 10:04AM Medication management Jan 18 2018 [...] 10:06AM Encounter for examination following treatment at [facility] 2019 10:06AM Postoperative Follow-up May [...] following treatment at [facility] 2020 2:21PM Moderate Acute Rib pain [...] Moderate Chronic Recurrent Hidradenitis suppurativa November 29 2:25PM Hidradenitis suppurativa Dec 22 2020 3:09PM Wound dehiscence Dec 22 2020 3:09PM Pain management Dec 20 2020 2:58PM Encounter for examination following treatment at hospital n 2020 2:58PM Cellulitis Dec 20 2020 2:58PM Poor venous access Jan 05 2021 2:14PM Hidradenitis suppurativa Jan 05 2021 2:14PM Cellulitis of neck Jan 17 2021 1:37PM Severe Chronic Poor venous access Jan 17 2021 1:37PM History of methicillin resistant Staph aureus Jan 17 2021 1 :37PM Pain management Jan 17 2021 1:37PM Encounter for examination following treatment at hospital l 2020 1:37PM Pain management Mar 09 [...] narcotic use agreement Jun 08 2021 6:41AM Payers Insurance Name Company Name Plan Name Plan Number Policy Number Trey cy Group Number Start Date [facility] ealthCare RHC Comm [id number] [facility] Plan of [id number] N/A [place] 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 Prog - RHC [facility] Asst Prog - RH C [id number] N/A [facility] Medical Nicky tance Prog [id number] N/A [facility] Nicky tance Prog [id number] N/A History of Encounters Visit Date Visit Type Provider 06/15/2021 Surgery Robbie Bouman DO 06/07/2021 Office visit JUSTIN MCGILL 05/25/2021 Office visit Robbie Bouman DO 05/04/2021 Office visit JUSTIN MCGILL 04/26/2021 Surgery Robbie Bouman DO 04/07/2021 [facility] 04/06/2021 Office visit Robbie Bouman DO 03/09/2021 Office visit JUSTIN MCGILL 01/28/2021 Office visit Robbie Bouman DO 01/17/2021 Office visit JUSTIN MCGILL 01/06/2021 [...] Bouman DO 08/26/2020 Office visit Yvon Howard DIRECTOR OF ENTERTAINMENT 08/11/2020 Procedures Robbie Bouman DO 08/05/2020 Surgery Robbie Bouman DO 07/30/2020 Procedures Robbie Bouman DO 07/28/2020 Office visit Yvon Howard DIRECTOR OF ENTERTAINMENT 07/28/2020 Voided Yvon Howard DIRECTOR OF ENTERTAINMENT 07/07/[address] Fadi Celestin MD [...] MD 01/18/2018 Office visit JUSTIN MCGILL 08/29/2013 [facility] Keesha Ojeda MD
--- OUTSIDE RECORDS SUMMARY | 2021-07-10 23:06 | XMS REPORT ---
Author Author Jeri Langley [facility] Address [address] [place], [place] [address] Care Team Providers Care Double Cutter Name Role Phone Robbie Langley PCP JUSTIN [...] 1 HOUR oxycodone-acetaminophen 10-325 mg oral tablet 06/30/2021 1 tablet by oral route every 8 hours PRN pain clindamycin HCl 300 mg oral capsule 06/30/2021 07/07/2021 take 1 capsule (300 mg) by oral route 2 times per day for 7 days Name Start Date [...] by oral route once for 3 days [place] 5-325 mg oral tablet 05/27/2018 06/06/2018 take [...] route once every 6 hrs prn pain [place] 5-325 mg oral tablet 03/08/2020 04/07/2020 take [...] 4 % topical liquid 01/30/2018 02/11/2018 apply supervisor taping ally as directed Diflucan 150 mg oral tablet 10/01/2018 01/31/2019 take 1 tablet (150 mg) by oral route once and one tablet in five days Flagyl 500 mg oral tablet 11/06/2018 01/06/2019 take 1 tablet by oral route twice a day for 7 days Hibiclens 4 % topical liquid 06/16/2019 05/03/2020 apply supervisor taping ally as directed rifampin 300 mg oral capsule 07/07/2019 07/22/2019 rober e 1 capsule by oral route 2 times a day for 10 days [place] 5-325 mg oral tablet 08/27/2019 10/16/2019 take 1 tablet by oral route every 4-6 hours as needed for pain [place] 5-325 mg oral tablet 12/22/2019 12/22/2019 take [...] Reviewed 11/01/2020 12:00 AM Decadron 8mg Injection, [facility] Medicaid Rev iewed 04/21/2021 12:00 AM DRUG SCREEN URINE Returned 05/04/2021 12:00 AM THERAPEUTIC PROPHYLACTIC/DX INJECTION PADILLA BQ/IM Reviewed 05/04/2021 12:00 AM Decadron 8mg Injection, [facility] Medicaid Rev iewed 05/04/2021 12:00 AM Depo-Medrol 80 Mg Injection, [facility] Medicai d Reviewed 05/04/2021 12:00 AM Rocephin 1 gram Injection, [facility] Medicaid Reviewed 05/25/2021 12:00 AM COMPLETE [...] mL/min/1.73meGFR AA* >60 mL/min/1.73m 08/04/2020 8:00 AM [id number] NOT DETECTED 05/25/2021 1:55 PM WBC 10.2 [...] Encounter for examination following treatment at [facility] 2019 10:06AM Postoperative Follow-up May [...] 3:42PM Encounter for examination following treatment at [facility] r 2020 2:21PM Moderate Acute Rib pain [...] 2:58PM Encounter for examination following treatment at [facility] 2020 2:58PM Cellulitis Dec 20 2020 2:58PM Poor venous access Jan 05 2021 2:14PM Hidradenitis suppurativa Jan 05 2021 2:14PM Cellulitis of neck Jan 17 2021 1:37PM Severe Chronic Poor venous access Jan 17 2021 1:37PM History of methicillin resistant Staph aureus Jan 17 2021 1 :37PM Pain management Jan 17 2021 1:37PM Encounter for examination following treatment at [facility] 2020 1:37PM Pain management Mar 09 [...] Abscess of breast Jul 05 2021 9:19AM Payers Insurance Name Company Name Plan Name Plan Number Policy Number Trey cy Group Number Start Date [facility] - Community Plan [facility] ealthCare RHC Comm [id number] N/A [facility] [place] [facility] Plan of [id number] N/A [place] M[employer]bden[employer] 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 - RHC [place] [employer] 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 - RH C [id number] N/A [place] Medical Assistance [facility] Nicky tance Prog [id number] N/A [place] Medical Assistance [facility] Medical Nicky tance Prog [id number] N/A History of Encounters Visit Date Visit Type Provider 07/05/2021 Office visit Robbie Langley DO 06/30/2021 Office visit Juno Morgan APRN 06/15/2021 Surgery Robbie Langley DO 06/07/2021 Office visit JUSTIN MCGILL 05/26/2021 [facility] Robbie Langley DO 05/25/2021 Office visit [...] Surgery Robbie Langley DO 12/22/2020 Procedures Robbie Bouman DO 12/20/2020 Office visit JUSTIN NAIK PA 12/09/2020 Surgery Robbie Bouman DO 12/02/2020 Office visit Robbie Bouman DO 11/29/2020 Office visit JUSTIN MCGILL 11/01/2020 Office visit JUSTIN MCGILL 10/27/2020 Office visit JUSTIN MCGILL 10/12/2020 Office visit JUSTIN MCGILL 09/27/2020 Office visit JUSTIN MCGILL 09/14/2020 Procedures Robbie Bouman DO 08/26/2020 Office visit Yvon Howard CARGO SERVICE SUPERVISOR 08/11/2020 Procedures Robbie Bouman DO 08/05/2020 Surgery Robbie Bouman DO 07/30/2020 Procedures Robbie Bouman DO 07/28/2020 Office visit Yvon Howard CARGO SERVICE SUPERVISOR 07/28/2020 Voided Yvon Howard CARGO SERVICE SUPERVISOR 07/07/[address] Fadi Celestin MD [...] visit Justin Wooten MD 07/28/2019 Office visit Jsutin Wooten MD 07/22/2019 Office visit Justin Wooten [...] MD 01/18/2018 Office visit JUSTIN MCGILL 08/29/2013 [facility] Keesha Ojeda MD
--- OUTSIDE RECORDS SUMMARY | 2021-07-10 23:06 | XMS REPORT ---
Author Author Jeri Langley [facility] Address [address] [place], [place] [address] Care Team Providers Care Spray Stainer Name Role Phone Robbie Langley PCP ANDRES [...] by oral route once for 3 days [place] 5-325 mg oral tablet 05/27/2018 06/06/2018 take [...] route once every 6 hrs prn pain [place] 5-325 mg oral tablet 03/08/2020 04/07/2020 take [...] 4 % topical liquid 01/30/2018 02/11/2018 apply psychometrician ally as directed Diflucan 150 mg oral tablet 10/01/2018 01/31/2019 take 1 tablet (150 mg) by oral route once and one tablet in five days Flagyl 500 mg oral tablet 11/06/2018 01/06/2019 take 1 tablet by oral route twice a day for 7 days Hibiclens 4 % topical liquid 06/16/2019 05/03/2020 apply psychometrician ally as directed rifampin 300 mg oral capsule 07/07/2019 07/22/2019 rober e 1 capsule by oral route 2 times a day for 10 days [place] 5-325 mg oral tablet 08/27/2019 10/16/2019 take 1 tablet by oral route every 4-6 hours as needed for pain [place] 5-325 mg oral tablet 12/22/2019 12/22/2019 take [...] Reviewed 11/01/2020 12:00 AM Decadron 8mg Injection, [facility] Medicaid Rev iewed 04/21/2021 12:00 AM DRUG SCREEN URINE Returned 05/04/2021 12:00 AM THERAPEUTIC PROPHYLACTIC/DX INJECTION PADILLA BQ/IM Reviewed 05/04/2021 12:00 AM Decadron 8mg Injection, [facility] Medicaid Rev iewed 05/04/2021 12:00 AM Depo-Medrol 80 Mg Injection, [facility] Medicai d Reviewed 05/04/2021 12:00 AM Rocephin 1 gram Injection, [facility] Medicaid Reviewed 05/25/2021 12:00 AM COMPLETE CBC [...] mL/min/1.73meGFR AA* >60 mL/min/1.73m 08/04/2020 8:00 AM [id number] NOT DETECTED 05/25/2021 1:55 PM WBC 10.2 [...] 10:06AM Encounter for examination following treatment at [facility] 2019 10:06AM Postoperative Follow-up May 18 [...] 3:42PM Encounter for examination following treatment at [facility] 2020 2:21PM Moderate Acute Rib pain Improving [...] following treatment at [facility] 2020 2:58PM Cellulitis Dec 20 2020 2:58PM Poor venous access Jan 05 2021 2:14PM Hidradenitis suppurativa Jan 05 2021 2:14PM Cellulitis of neck Jan 17 2021 1:37PM Severe Chronic Poor venous access Jan 17 2021 1:37PM History of methicillin resistant Staph aureus Jan 17 2021 1 :37PM Pain management Jan 17 2021 1:37PM Encounter for examination following treatment at [facility] 2020 1:37PM Pain management Mar [...] Number Trey cy Group Number Start Date [facility] ealthCare RHC Comm [id number] N/A [facility] Plan of [id number] N/A [place] 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 - RHC [place] 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 - C [id number] N/A [place] Medical Assistance [facility] Medical Nicky tance Prog [id number] N/A [place] Medical Assistance [facility] Medical Nicky tance Prog [id number] N/A History of Encounters Visit Date Visit Type Provider 07/06/2021 [facility] Robbie Langley DO 07/05/2021 Office visit Robbie Langley DO 06/30/2021 Office visit Juno Morgan WAIST PLEATER 06/15/2021 Surgery Robbie Langley DO 06/07/2021 Office visit ANDRES MCGILL 05/26/2021 [facility] Robbie Langley DO 05/25/2021 Office visit Robbie Langley DO 05/04/2021 Office visit ANDRES MCGILL 04/26/2021 Surgery Robbie Langley DO 04/07/2021 [facility] Robbie Langley DO 04/06/2021 Office visit Robbie [...] Bouman DO 08/26/2020 Office visit Yvon Howard BRIDGE GANG WORKER 08/11/2020 Procedures Robbie Bouman DO 08/05/2020 Surgery Robbie Bouman DO 07/30/2020 Procedures Robbie Bouman DO 07/28/2020 Office visit Yvon Howard BRIDGE GANG WORKER 07/28/2020 Voided Yvon Howard BRIDGE GANG WORKER 07/07/[address] Fadi Celestin MD [...] Andres Wooten MD 10/31/2018 Office visit Hira Jennings [...] Wooten MD 02/11/2018 Office visit Emma collier WAIST PLEATER 01/30/2018 Procedures Andres Wooten MD 01/18/2018 Office visit ANDRES MCGILL 08/29/2013 [facility] Keesha Ojeda MD
--- OUTSIDE RECORDS SUMMARY | 2021-07-10 23:06 | XMS REPORT ---
Author Author Jeri Langley [facility] Address [address] [place], [place] [address] Care Team Providers Care Fashion Intern Name Role Phone Robbie Langley PCP JUSTIN [...] by oral route 2 times a day minocycline 100 mg oral tablet t vitor 1 tablet (100 mg) by oral route once daily at bedtime prednisone 20 mg oral tablet 06/09/2021 4x2 days, 3x 2 days, 2x2 days, 1x1 days Ondansetron 4 MG Oral Tablet Disintegrating 06/22/202107/24 [...] by oral route once for 3 days [place] 5-325 mg oral tablet 05/27/2018 06/06/2018 take [...] route once every 6 hrs prn pain [place] 5-325 mg oral tablet 03/08/2020 04/07/2020 take [...] oral route once daily for 10 days oxycodone-acetaminophen 10-325 mg oral tablet 05/20/2021 1 tablet by oral route every 8 hours PRN pain minocycline 100 mg oral tablet t vitor 1 tablet (100 mg) by oral route once daily at bedtime levofloxacin 500 mg oral tablet 06/09/2021 06/19/2021 take 1 tablet (500 mg) by oral route once daily for 10 days Discontinued Name Start Date Discontinued Date SIG Comments lisinopril oral 06/11/2018 Lyrica oral 06/11/2018 estradiol 1 mg oral tablet 02/11/2018 Hibiclens 4 % topical liquid 01/30/2018 02/11/2018 apply compensation intern ally as directed Diflucan 150 mg oral tablet 10/01/2018 01/31/2019 take 1 tablet (150 mg) by oral route once and one tablet in five days Flagyl 500 mg oral tablet 11/06/2018 01/06/2019 take 1 tablet by oral route twice a day for 7 days Hibiclens 4 % topical liquid 06/16/2019 05/03/2020 apply compensation intern ally as directed rifampin 300 mg oral capsule 07/07/2019 07/22/2019 rober e 1 capsule by oral route 2 times a day for 10 days [place] 5-325 mg oral tablet 08/27/2019 10/16/2019 take 1 tablet by oral route every 4-6 hours as needed for pain [place] 5-325 mg oral tablet 12/22/2019 12/22/2019 take [...] Reviewed 11/01/2020 12:00 AM Decadron 8mg Injection, [facility] Medicaid Rev iewed 04/21/2021 12:00 AM DRUG SCREEN URINE Returned 05/04/2021 12:00 AM THERAPEUTIC PROPHYLACTIC/DX INJECTION PADILLA BQ/IM Reviewed 05/04/2021 12:00 AM Decadron 8mg Injection, [facility] Medicaid Rev iewed 05/04/2021 12:00 AM Depo-Medrol 80 Mg Injection, [facility] Medicai d Reviewed 05/04/2021 12:00 AM Rocephin 1 gram Injection, [facility] Medicaid Reviewed 05/25/2021 12:00 AM COMPLETE CBC [...] mL/min/1.73meGFR AA* >60 mL/min/1.73m 08/04/2020 8:00 AM [id number] NOT DETECTED 05/25/2021 1:55 PM WBC 10.2 [...] 3:42PM Encounter for examination following treatment at [facility] 2020 2:21PM Moderate Acute Rib pain Improving [...] 2:58PM Encounter for examination following treatment at [facility] n 2020 2:58PM Cellulitis Dec 20 [...] with patient Jun 08 2021 6:4 1AM Payers Insurance Name Company Name Plan Name Plan Number Policy Number Trey cy Group Number Start Date [facility] ealtare RHC Comm [id number] N[facility] Plan of [id number] N/A [facility] Asst Prog - RHC [facility] Asst Prog - C [id number] N/A [facility] Assistance [facility] Nicky tanella Prog [id number] N/A [facility] Assistance [facility] Nicky tance Prog [id number] N/A History of Encounters Visit Date Visit Type Provider 06/15/2021 Surgery Robbie Bouman DO 06/07/2021 Office visit JUSTIN MCGILL 05/26/2021 Hospital Robbie Bouman DO 05/25/2021 Office visit Robbie Bouman DO 05/04/2021 Office visit JUSTIN MCGILL 04/26/2021 Surgery Robbie Bouman DO 04/07/2021 Hospital Robbie Bouman DO 04/06/2021 Office visit [...] Bouman DO 08/26/2020 Office visit Yvon Howard SQL DEVELOPER 08/11/2020 Procedures Robbie Bouman DO 08/05/2020 Surgery Robbie Bouman DO 07/30/2020 Procedures Robbie Bouman DO 07/28/2020 Office visit Yvon Howard SQL DEVELOPER 07/28/2020 Voided Yvon Howard NP 07/07/2020 Office [...] 01/18/2018 Office visit JUSTIN MCGILL 08/29/2013 [facility] Keesha Ojeda MD
--- OUTSIDE RECORDS SUMMARY | 2021-07-10 23:07 | XMS REPORT ---
Author Author Jeri Langley [facility] Address [address] [place], [place] [id number] Care Team Providers Care Laboratory Chemical Assistant Name Role Phone Robbie Langley PCP JUSTIN [...] by oral route once for 3 days Hale 5-325 mg oral tablet 05/27/2018 06/06/2018 take [...] route once every 6 hrs prn pain Hale 5-325 mg oral tablet 03/08/2020 04/07/2020 take [...] 4 % topical liquid 01/30/2018 02/11/2018 apply woods warden ally as directed Diflucan 150 mg oral tablet 10/01/2018 01/31/2019 take 1 tablet (150 mg) by oral route once and one tablet in five days Flagyl 500 mg oral tablet 11/06/2018 01/06/2019 take 1 tablet by oral route twice a day for 7 days Hibiclens 4 % topical liquid 06/16/2019 05/03/2020 apply woods warden ally as directed rifampin 300 mg oral capsule 07/07/2019 07/22/2019 rober e 1 capsule by oral route 2 times a day for 10 days Hale 5-325 mg oral tablet 08/27/2019 10/16/2019 take 1 tablet by oral route every 4-6 hours as needed for pain Hale 5-325 mg oral tablet 12/22/2019 12/22/2019 take [...] mL/min/1.73meGFR AA* >60 mL/min/1.73m 08/04/2020 8:00 AM [id number] NOT DETECTED 05/25/2021 1:55 PM WBC 10.2 [...] 3:42PM Encounter for examination following treatment at [facility] r 2020 2:21PM Moderate Acute Rib [...] 2:58PM Encounter for examination following treatment at [facility] 2020 2:58PM Cellulitis Dec 20 2020 2:58PM Poor venous access Jan 05 2021 2:14PM Hidradenitis suppurativa Jan 05 2021 2:14PM Cellulitis of neck Jan 17 2021 1:37PM Severe Chronic Poor venous access Jan 17 2021 1:37PM History of methicillin resistant Staph aureus Jan 17 2021 1 :37PM Pain management Jan 17 2021 1:37PM Encounter for examination following treatment at [facility] 2020 1:37PM Pain management Mar 09 [...] Name Plan Name Plan Number Policy Number [facility] Group Number Start Date [facility] [id number] [facility] of [id number] N/A [place] 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 [place] Medical Nicky tance Prog [id number] N/A [place] Medical Assistance [facility] [place] Medical Nicky tance Prog [id number] N/A History of Encounters Visit Date Visit [...] Bouman DO 08/26/2020 Office visit Yvon Howard COMPUTER PROGRAMMING SUPERVISOR 08/11/2020 Procedures Robbie Bouman DO 08/05/2020 Surgery Robbie Bouman DO 07/30/2020 Procedures Robbie Bouman DO 07/28/2020 Office visit Yvon Howard COMPUTER PROGRAMMING SUPERVISOR 07/28/2020 Voided Yvon Howard COMPUTER PROGRAMMING SUPERVISOR 07/07/[address] Fadi Celestin [...] MD 01/18/2018 Office visit JUSTIN MCGILL 08/29/2013 [facility] Alisa Ojeda MD
[2021-07-10 23:10] VITALS: BP 154/108
[2021-07-10] MEDS ORDERED: SUMA50TA2 (23:16)
[2021-07-10] MEDS ORDERED: RX-CLINDAMYCIN 150 MG (CLEOCIN) CAP PPK#4 PO STA (23:23)
[2021-07-10] MEDS ORDERED: MUPI22OI2 TP (23:26)
[2021-07-10] MEDS ORDERED: CLIN-144 PO (23:26)
--- NOTE | 2021-07-10 23:26 | ED Integumentary General ---
General Chief Complaint: Post OP Complications/Pain Stated Complaint: POST OP INCISIONS BLEEDING;L THIGH,R BREAST Nursing Triage Note: reports [place] surgery at [facility] 07/06/21 reports left medial thigh incision opened up et. right breast incision draining. Source: patient History of Present Illness Date Seen by Provider: Jul 10, 2021 Time Seen by Provider: 23:15 Initial Comments PT ARRIVES VIA POV FROM HOME STATES SHE HAD SURGERY ON Sunday07/06/[address] 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 PCP: ELVIS NAIK AT [facility] IN [place] Allergies and Home Medications Allergies Coded Allergies: Penicillins (Verified Allergy, Unknown, 05/16/20) Sulfa (Sulfonamide Antibiotics) (Verified Allergy, Unknown, 05/16/20) azithromycin (Verified Allergy, Unknown, 05/16/20) ketorolac (Verified Allergy, Unknown, 05/16/20) latex (Verified Allergy, Unknown, 05/16/20) tramadol (Verified Allergy, Unknown, 05/16/20) Patient Home Medication List Home Medication List Reviewed: Yes Clindamycin HCl (Clindamycin HCl) 300 Mg Capsule, 300 MG PO QID Prescribed by: WAYNE SMITH on 07/10/212325 Mupirocin (Mupirocin) 22 Gm Oint...g., 22 GM TP BID Prescribed by: WAYNE SMITH on 07/10/212325 Ondansetron (Ondansetron Odt) 4 Mg Tab.rapdis, 4 MG PO Q4H Prescribed by: WAYNE SMITH on 08/08/20 584 Ondansetron (Ondansetron Odt) 8 Mg Tab.rapdis, 8 MG PO Q6H PRN for NAUSEA/VOMITING Prescribed by: JOHN MONSALVE on 08/20/202139 Oxycodone HCl/Acetaminophen (Percocet 5-325 mg Tablet) 1 Each Tablet, 1-2 TAB PO Q6H PRN for PAIN-BREAKTHROUGH Prescribed by: NIMA URBAN on 05/16/20118 Sumatriptan Succinate (Sumatriptan Succinate) 50 Mg Tablet, (Reported) Entered as Reported by: JEFF LUCAS on 07/10/212315 Last Action: New Order Discontinued Medications Cephalexin (Keflex) 500 Mg Capsule, 500 MG PO TIDAC Discontinued Reason: No Longer Taking Prescribed by: NIMA URBAN on 05/16/20118 Last Action: Discontinued Cephalexin (Cephalexin) 500 Mg Tablet, 500 MG PO QID Discontinued Reason: No Longer Taking Prescribed by: WAYNE SMITH on 08/08/202252 Last Action: Discontinued Doxycycline Hyclate (Doxycycline Hyclate) 100 Mg Tablet, 100 MG PO BID Discontinued Reason: No Longer Taking Prescribed by: JOHN MONSALVE on 08/20/202139 Last Action: Discontinued Hydrocodone/Acetaminophen (Hydrocodone-Acetamin 5-325 mg) 1 Each Tablet, 1 TAB PO Q6H PRN for PAIN-MODERATE (5-7) Discontinued Reason: No Longer Taking Prescribed by: JOHN MONSALVE on 08/20/202140 Last Action: Discontinued Prednisone (Prednisone) 20 Mg Tab, 40 MG PO DAILY Discontinued Reason: No Longer Taking Prescribed by: WAYNE SMITH on 03/30/20 0251 Last Action: Discontinued Prednisone (Prednisone) 20 Mg Tab, 40 MG PO DAILY Discontinued Reason: No Longer Taking Prescribed by: WAYNE SMITH on 04/24/20 0058 Last Action: Discontinued Review of Systems Review of Systems Constitutional: No fever Respiratory: no symptoms reported Cardiovascular: no symptoms reported Gastrointestinal: no symptoms reported Genitourinary: no symptoms reported Skin: see HPI Past Pkcglhy-Xnjhnh-Dstzel Hx Patient Social History Tobacco Use?: Yes Substance use?: No Alcohol Use?: No Pt feels they are or have been: No Immunizations Up To Date Tetanus Booster (TDap): Less than 5yrs PED Vaccines UTD: Yes Seasonal Allergies Seasonal Allergies: No Past Medical History Surgery/Hospitalization HX: [place], [facility], app[facility], vic, dental Surgeries: Yes (MULT SURGERIES/HYDRADENITIS-GROIN,AXILLA,PANNUS/BREASTS;BILAT CARPAL TUNNEL) Appendectomy, Gallbladder, Hysterectomy, Orthopedic Respiratory: No Cardiac: No Neurological: No Reproductive Disorders: Yes 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 Genitourinary: No Gastrointestinal: No Musculoskeletal: Yes (BILATERAL CARPAL TUNNEL REPAIR) Endocrine: Yes (OBESITY) HEENT: No Cancer: No Psychosocial: No Integumentary: Yes (HYDRADENITIS--GROIN, PANNUS, AXILLA, BREASTS-MULTIPLE SURGERIES;MRSA) Recent Skin Changes Blood Disorders: No Family Medical History No Pertinent Family Hx Physical Exam Vital Signs Vital Signs - First Documented 07/10/21 23:10 Temp 36.5 Pulse 98 Resp 18 B/P (MAP) 154/108 (123) Pulse Ox 98 O2 Delivery Room Air Capillary Refill : Less Than 3 Seconds General Appearance: WD/WN, no apparent distress, obese, other (MARKEDLY EXAGGERATED PAIN RESPOSE) Cardiovascular: regular rate, rhythm Respiratory: normal breath sounds Neurologic/Psychiatric: alert, normal mood/affect Skin: normal color, warm/dry, tattoos/piercings, other (SURGICAL SITE TO INFERIOR ASPECT OF RIGHT BREAST --SUTURES INTACT, NO DRAINAGE OR SIGNS OF INFECTION; WOUND TO LEFT UPPER MEDIAL THIGH IS DEHISCED--WOUND IS APPROXMIATELY 2 CM IN DIAMETER. NO DRAINAGE OR BLEEDING OR SIGNS OF INFECTION) Progress/Results/Core Measures Results/Orders My Orders Orders - WAYNE SMITH DO Wound Culture (07/10/21 23:23) Rx-Clindamycin Capsule (Rx-Cleocin Capsu (07/10/21 23:23) Vital Signs/I&O 07/10/21 23:10 Temp 36.5 Pulse 98 Resp 18 B/P (MAP) 154/108 (123) Pulse Ox 98 O2 Delivery Room Air Blood Pressure Mean: 123 Progress Progress Note : Progress Note CULTURE OBTAINED FROM DEHISCED WOUND TO LEFT THIGH. Departure Impression Primary Impression: Postoperative pain Additional Impression: Postoperative wound dehiscence Disposition: 01 HOME, SELF-CARE Condition: Stable Departure-Patient Inst. Decision time for Depature: 23:22 Referrals: ANDRES NAIK (PCP/Family) Primary Care Physician Patient Instructions: Wound Dehiscence, Postoperative Pain (DC) Add. Discharge Instructions: TYLENOL AND MOTRIN NEEDED FOR PAIN FOLLOW ALL POST OP INSTRUCTIONS CLEAN WOUNDS TWICE A DAY WITH ANTIBACTERIAL SOAP AND WATER ON A Q-TIP, APPLY ANTIBIOTIC OINTMENT TO OPEN WOUND TO THIGH, AND APPLY FRESH DRESSING TWICE A DAY KEEP YOUR APPOINTMENT THIS WEEK WITH YOUR SURGEON Scripts Mupirocin (Mupirocin) 22 Gm Oint...g. 22 GM TP BID, #1 TUBE Prov: WAYNE SMITH DO 07/10/21 Clindamycin HCl (Clindamycin HCl) 300 Mg Capsule 300 MG PO QID for 10 Days, #40 CAP Prov: WAYNE SMITH DO 07/10/21 WAYNE SMITH DO Jul 10, 2021 23:26
== END 2021-07-10 23:29 | disposition home or self-care (01) ==
LOC: EDUNIT# 22:59 → ER 23:01
DX: G89.18 Other acute postprocedural pain (principal); T81.32XA Disruption of internal operation (surgical) wound, not elsewhere classified, initial encounter; E66.9 Obesity, unspecified; Z72.0 Tobacco use; Z91.040 Latex allergy status
CPT/HCPCS: 87070; 87205; 99282

== ENCOUNTER 2021-07-30 01:01 | Emergency (ER) | payer MEDICAID ==
[~2021-07-30] VITALS: Ht 170 cm; Wt 118.0 kg
[~2021-07-30 01:01] MED LIST changes: +CLIN-144 PO; +MUPI22OI2 TP; +SUMA50TA2
--- OUTSIDE RECORDS SUMMARY | 2021-07-30 01:08 | XMS REPORT ---
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 Name Role Phone Juno Morgan PCP Juno Morgan PreferredProvider Allergies and Adverse Reactions Name Reaction [...] 1 HOUR oxycodone-acetaminophen 10-325 mg oral tablet 07/13/202108/12/2021 1 tablet by oral route every 8 [...] by oral route once for 3 days [place]ron 5-325 mg oral tablet 05/27/2018 06/06/2018 take [...] route once every 6 hrs prn pain [place] 5-325 mg oral tablet 03/08/2020 04/07/2020 take [...] 3x 2 days, 2x2 days, 1x1 days clindamycin HCl 300 mg oral capsule 06/30/2021 07/07/2021 take 1 capsule (300 mg) by oral route 2 times per day for 7 days Discontinued Name Start Date Discontinued Date SIG Comments lisinopril oral 06/11/2018 Lyrica oral 06/11/2018 estradiol 1 mg oral tablet 02/11/2018 Hibiclens 4 % topical liquid 01/30/2018 02/11/2018 apply salvager helper ally as directed Diflucan 150 mg oral tablet 10/01/2018 01/31/2019 take 1 tablet (150 mg) by oral route once and one tablet in five days Flagyl 500 mg oral tablet 11/06/2018 01/06/2019 take 1 tablet by oral route twice a day for 7 days Hibiclens 4 % topical liquid 06/16/2019 05/03/2020 apply salvager helper ally as directed rifampin 300 mg oral capsule 07/07/2019 07/22/2019 rober e 1 capsule by oral route 2 times a day for 10 days [place] 5-325 mg oral tablet 08/27/2019 10/16/2019 take 1 tablet by oral route every 4-6 hours as needed for pain [place] 5-325 mg oral tablet 12/22/2019 12/22/2019 take [...] HC BMI BSA BMI Percentile O2 Sat(%) 07/13/2021 1:48:00 PM 140 mm[Hg] 90 mm[Hg] 103 {beats}/min 97.9 F 265.375 lbs 67 in 41.5632 kg/m2 2.3854 m2 98 % 07/05/2021 9:18:00 AM 164 mm[Hg] 115 mm[Hg] 91 {beats}/min 96.8 F 263 lbs 67 in 41.19 kg/m2 2.37 m2 06/30/2021 9:57:00 AM 140 mm[Hg] 100 mm[Hg] 104 {beats}/min 97.9 F 265.5 lbs 67 in 41.5828 kg/m2 2.386 m2 99 % 05/25/2021 1:25:00 PM 154 mm[Hg] 101 mm[Hg] 83 {beats}/min 20 rpm 97 F 264 lbs 67 in 41.35 kg/m2 2.38 m2 05/04/2021 9:41:00 AM 124 mm[Hg] 72 [...] Decadron 8mg Injection, R[facility] Medicaid Rev iewed 04/21/2021 12:00 AM DRUG SCREEN URINE Returned 05/04/2021 12:00 AM THERAPEUTIC PROPHYLACTIC/DX INJECTION PADILLA BQ/IM Reviewed 05/04/2021 12:00 AM Decadron 8mg Injection, [facility] Medicaid Rev iewed 05/04/2021 12:00 AM Depo-Medrol 80 Mg Injection, RHC Medicai d Reviewed 05/04/2021 12:00 AM Rocephin 1 gram Injection, R[facility] Medicaid Reviewed 05/25/2021 12:00 AM COMPLETE CBC [...] mL/min/1.73meGFR AA* >60 mL/min/1.73m 08/04/2020 8:00 AM [id number] NOT DETECTED 05/25/2021 1:55 PM WBC 10.2 [...] Encounter for examination following treatment at hospital [facility] r 2020 2:21PM Moderate Acute Rib pain [...] 2:58PM Encounter for examination following treatment at [facility] 2020 2:58PM Cellulitis Dec 20 2020 2:58PM Poor venous access Jan 05 2021 2:14PM Hidradenitis suppurativa Jan 05 2021 2:14PM Cellulitis of neck Jan 17 2021 1:37PM Severe Chronic Poor venous access Jan 17 2021 1:37PM History of methicillin resistant Staph aureus Jan 17 2021 1 :37PM Pain management Jan 17 2021 1:37PM Encounter for examination following treatment at [facility] 2020 1:37PM Pain management Mar 09 2021 [...] Port-A-Cath in place Jul 06 2021 1:47PM Hidradenitis suppurativa Jul 13 2021 1:50PM Wound dehiscence Jul 13 2021 1:50PM Payers Insurance Name Company Name Plan Name Plan Number Policy Number Trey Group Number Start Date [facility] - [facility] - [facility] ealthCare RHC Comm [id number] [facility] Plan of [id number] N/A [place] 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 Prog - RHC [facility] Asst Prog - C [id number] N/A [place] Medical Assistance [facility] Medical Nicky tance Prog [id number] N/A [place] Medical Assistance [facility] Medical Nicky tance Prog [id number] N/A History of Encounters Visit Date Visit Type Provider 07/13/[address]o Morgan ROAD TRAIN DRIVER 07/06/2021 Hospital Robbie Langley DO 07/05/2021 Office visit Robbie Langley DO 06/30/[address] TRAIN DRIVER 06/15/2021 Surgery Robbie Langley DO 06/07/2021 Office visit JUSTIN MCGILL 05/26/2021 Hospital Robbie Langley DO 05/25/2021 Office visit [...] Bouman DO 08/26/2020 Office visit Yvon Howard INSOLE PRESSER 08/11/2020 Procedures Robbie Bouman DO 08/05/2020 Surgery Robbie Bouman DO 07/30/2020 Procedures Robbie Bouman DO 07/28/2020 Office visit Yvon Howard INSOLE PRESSER 07/28/2020 Voided Yvon Howard INSOLE PRESSER 07/07/[address] Fadi Celestin MD 07/01/2020 Office visit JUSTIN MCGILL 06/08/2020 Office visit JUSTIN MCGILL 05/26/2020 Office visit Justin Wooetn MD 05/18/2020 Office visit Justin Wooten MD [...]
--- OUTSIDE RECORDS SUMMARY | 2021-07-30 01:09 | XMS REPORT ---
Author Author Jeri Langley [facility] Address [address] [place], [place] [id number] Care Team Providers Care Emission Specialist Name Role Phone Robbie Langley PCP [...] 1 HOUR oxycodone-acetaminophen 10-325 mg oral tablet 07/06/2021 1 [...] by oral route once for 3 days [place]by 5-325 mg oral tablet 05/27/2018 06/06/2018 take [...] route once every 6 hrs prn pain [place] 5-325 mg oral tablet 03/08/2020 04/07/2020 take [...] 4 % topical liquid 01/30/2018 02/11/2018 apply hunting and fishing guide ally as directed Diflucan 150 mg oral tablet 10/01/2018 01/31/2019 take 1 tablet (150 mg) by oral route once and one tablet in five days Flagyl 500 mg oral tablet 11/06/2018 01/06/2019 take 1 tablet by oral route twice a day for 7 days Hibiclens 4 % topical liquid 06/16/2019 05/03/2020 apply hunting and fishing guide ally as directed rifampin 300 mg oral capsule 07/07/2019 07/22/2019 rober e 1 capsule by oral route 2 times a day for 10 days [place] 5-325 mg oral tablet 08/27/2019 10/16/2019 take 1 tablet by oral route every 4-6 hours as needed for pain [place] 5-325 mg oral tablet 12/22/2019 12/22/2019 take [...] Reviewed 11/01/2020 12:00 AM Decadron 8mg Injection, [facility] Medicaid Rev iewed 04/21/2021 12:00 AM DRUG SCREEN URINE Returned 05/04/2021 12:00 AM THERAPEUTIC PROPHYLACTIC/DX INJECTION PADILLA BQ/IM Reviewed 05/04/2021 12:00 AM Decadron 8mg Injection, [facility] Medicaid Rev iewed 05/04/2021 12:00 AM Depo-Medrol 80 Mg Injection, [facility] Medicai d Reviewed 05/04/2021 12:00 AM Rocephin 1 gram Injection, [facility] Medicaid Reviewed 05/25/2021 12:00 AM COMPLETE CBC [...] mL/min/1.73meGFR AA* >60 mL/min/1.73m 08/04/2020 8:00 AM [id number] NOT DETECTED 05/25/2021 1:55 PM WBC 10.2 [...] 10:06AM Encounter for examination following treatment at [facility] 2019 10:06AM Postoperative Follow-up May [...] 3:42PM Encounter for examination following treatment at [facility] 2020 2:21PM Moderate Acute Rib pain [...] 2:58PM Encounter for examination following treatment at [facility] 2020 2:58PM Cellulitis Dec 20 [...] Number Trey cy Group Number Start Date [facility] ealthCare RHC Comm [id number] [facility] Plan of [id number] N/A [place] Manager Cargo Prog - RHC [place] Manager Cargo Prog - C [id number] N/A [place] Medical Assistance [facility] Medical Nicky tance Prog [id number] N/A [place] Medical Assistance [facility] Medical Nicky tance Prog [id number] N/A History of Encounters Visit Date Visit Type Provider 07/06/2021 [facility] Robbie Langley DO 07/05/2021 Office visit Robbie Langley DO 06/30/2021 Office visit Juno Morgan INSOLVENCY PRACTITIONER 06/15/2021 Surgery Robbie Langley DO 06/07/2021 Office visit ANDRES MCGILL 05/26/2021 [facility] Robbie Langley DO 05/25/2021 Office visit Robbie Langley DO 05/04/2021 Office visit ANDRES MCGILL 04/26/2021 Surgery Robbie Langley DO 04/07/2021 [facility] Robbie Langley DO 04/06/2021 Office visit Robbie Langley DO 03/09/2021 Office visit ANDRES MCGILL 01/28/2021 Office visit Robbie Langley DO 01/17/2021 Office visit ANDRES MCGILL 01/06/2021 Surgery Robbie Langley DO 01/05/2021 Office visit 01/05/2021 Office visit Robbie Bouman DO 12/28/2020 Surgery Robbie Bouman DO 12/23/2020 Surgery Robbie Bouman DO 12/22/2020 Procedures Robbie Bouman DO 12/20/2020 Office visit ANDRES NAIK PA 12/09/2020 Surgery Orbbie Bouman DO 12/02/2020 Office visit Robbie Bouman DO 11/29/2020 Office visit ANDRES MCGILL 11/01/2020 Office visit ANDRES NAIK PA 10/27/2020 Office visit ANDRES MCGILL 10/12/2020 Office visit ANDRES MCGILL 09/27/2020 Office visit ANDRES MCGILL 09/14/2020 Procedures Robbie Bouman DO 08/26/2020 Office visit Yvon Howard TRANSFER PUMPER 08/11/2020 Procedures Robbie Bouman DO 08/05/2020 Surgery Robbie Bouman DO 07/30/2020 Procedures Robbie Bouman DO 07/28/2020 Office visit Yvon Howard TRANSFER PUMPER 07/28/2020 Voided Yvon Howard TRANSFER PUMPER 07/07/[address] Fadi Celestin MD [...] Andres Wooten MD 08/20/2019 Office visit Andres oWoten MD 08/04/2019 Office visit Andres Wooten MD [...] Wooten MD 02/11/2018 Office visit Emma collier INSOLVENCY PRACTITIONER 01/30/2018 Procedures Andres Wooten MD 01/18/2018 Office visit ANDRES MCGILL 08/29/2013 [facility] Keesha Ojeda MD
[2021-07-30 01:15] VITALS: BP 153/105
[2021-07-30] MEDS ORDERED: MUPI22OI2 TP (01:27)
--- NOTE | 2021-07-30 01:27 | ED Upper Extremity ---
General Chief Complaint: Upper Extremity Stated Complaint: LEFT HAND MIDDLE FINGER LAC Source: patient History of Present Illness Date Seen by Provider: Jul 30, 2021 Time Seen by Provider: 01:20 Initial Comments PT ARRIVES VIA POV FROM HOME C/O LACERATION TO LEFT MIDDLE FINGER STATES SHE WAS CUTTING CARPET WITH A BOX KNIFE WITH A CURVED BLADE AND IT GOT "HOOKED" AND CAME LOOSE AND CUT HER FINGER OCCURRED 30 MINUTES AGO NO PARESTHESIAS OR MOTOR DEFICITS NO PRIOR INJURY TO THIS FINGER/HAND PT IS RIGHT HANDED HAS NOT TAKEN ANYTHING FOR PAIN LAST TETANUS VACCINATION IS UNKNOWN PCP IN [place], [place] Allergies and Home Medications Allergies Coded Allergies: Penicillins (Verified Allergy, Unknown, 05/16/20) Sulfa (Sulfonamide Antibiotics) (Verified Allergy, Unknown, 05/16/20) azithromycin (Verified Allergy, Unknown, 05/16/20) ketorolac (Verified Allergy, Unknown, 05/16/20) latex (Verified Allergy, Unknown, 05/16/20) tramadol (Verified Allergy, Unknown, 05/16/20) Patient Home Medication List Clindamycin HCl (Clindamycin HCl) 300 Mg Capsule, 300 MG PO QID Prescribed by: WAYNE SMITH on 07/10/21 2326 Mupirocin (Mupirocin) 22 Gm Oint...g., 22 GM TP BID Prescribed by: WAYNE SMITH on 07/10/21 2326 Mupirocin (Mupirocin) 22 Gm Oint...g., 22 GM TP BID Prescribed by: WAYNE SMITH on 07/30/21 0127 Ondansetron (Ondansetron Odt) 4 Mg Tab.rapdis, 4 MG PO Q4H Prescribed by: WAYNE SMITH on 08/08/20 2253 Ondansetron (Ondansetron Odt) 8 Mg Tab.rapdis, 8 MG PO Q6H PRN for NAUSEA/VOMITING Prescribed by: JOHN MONSALVE on 08/20/20 214 Oxycodone HCl/Acetaminophen (Percocet 5-325 mg Tablet) 1 Each Tablet, 1-2 TAB PO Q6H PRN for PAIN-BREAKTHROUGH Prescribed by: NIMA URBAN on 05/16/20 0119 Sumatriptan Succinate (Sumatriptan Succinate) 50 Mg Tablet, (Reported) Entered as Reported by: JEFF LUCAS on 07/10/21 6132 Review of Systems Constitutional: no symptoms reported Musculoskeletal: see HPI Skin: see HPI Psychiatric/Neurological: No Symptoms Reported Past Imhdizz-Hjfeol-Fssjmw Hx Patient Social History Tobacco Use?: Yes Tobacco type used: Cigarettes Smoking Status: Current Everyday Smoker Immunizations Up To Date Tetanus Booster (TDap): Less than 5yrs PED Vaccines UTD: Yes Seasonal Allergies Seasonal Allergies: No Past Medical History Surgeries: Yes (MULT SURG/HYDRADENITIS-GROIN,AXILLA,PANNUS/BREASTS;APRIL CARPAL TUNNEL;DENTAL) Appendectomy, Gallbladder, Hysterectomy, Orthopedic Respiratory: No Cardiac: No Neurological: No Reproductive Disorders: 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 oz. kg; 41.00 BMI Method: General Appearance: WD/WN, obese, other (VERY DRAMATIC, MARKEDLY EXAGGERATED PAIN RESPONSE) Hand: Left (DORSAL ASPECT OF LEFT MIDDLE FINGER WITH 1/2 CM VERY SUPERFICIAL LACERATION. ) Progress/Results/Core Measures Results/Orders My Orders Orders - WAYNE SMITH DO Wound Dressing-Ed (07/30/21 01:28) Dipht,Pertuss(Acell),Tet Adult (Boostrix (07/30/21 01:30) Departure Impression Primary Impression: Laceration of left middle finger Additional Impression: Bekbfzzhdf-fignguodl-arrkycl (DPT) vaccination administered at current visit Disposition: 01 HOME, SELF-CARE Condition: Stable Departure-Patient Inst. Decision time for Depature: 01:25 Referrals: TERRY DINH APRN (PCP/Family) Primary Care Physician Patient Instructions: Diphtheria and Tetanus Toxoids, and Acellular Pertussis Vaccine, Wound Care ED Add. Discharge Instructions: CLEAN WOUND TWICE A DAY WITH ANTIBACTERIAL SOAP AND WATER, APPLY ANTIBIOTIC OINTMENT AND FRESH DRESSING TWICE A DAY TYLENOL AND MOTRIN NEEDED FOR PAIN FOLLOW UP WITH YOUR DR NEEDED All discharge instructions reviewed with patient and/or family. Voiced understanding. Scripts Mupirocin (Mupirocin) 22 Gm Oint...g. 22 GM TP BID, #1 TUBE Prov: WAYNE SMITH DO 07/30/21 WAYNE SMITH DO Jul 30, 2021 01:27
[2021-07-30] MEDS ORDERED: TETANUS,DIPTH,PERTUSS P/F (BOOSTRIX) 0.5 ML VIAL IM ONE (01:30)
== END 2021-07-30 01:38 | disposition home or self-care (01) ==
LOC: EDUNIT# 01:01 → ER 01:05
DX: S61.213A Laceration without foreign body of left middle finger without damage to nail, initial encounter (principal); E66.9 Obesity, unspecified; F17.210 Nicotine dependence, cigarettes, uncomplicated; Z23 Encounter for immunization; Z68.41 Body mass index [BMI] 40.0-44.9, adult; Z91.040 Latex allergy status; W26.0XXA Contact with knife, initial encounter
CPT/HCPCS: 90715; 99284